=== PATIENT | female | born 1960 | race Caucasian/White ===

== ENCOUNTER 2019-03-28 12:25 | Outpatient (REF) | payer BC, SELFPAY ==
[2019-03-28 18:22] LABS: Abs Immature Grans 0.02 k/cumm (0.0-0.09); Absolute Basophil Count 0.04 k/cumm (0.0-0.2); Absolute Eosinophil Count 0.12 k/cumm (0.0-0.7); Absolute Monocyte Count 0.48 k/cumm (0.11-0.7); Absolute Neutrophil Count 4.39 k/cumm (1.2-6.7); Basophils % 0.6; Eosinophils % 1.7; HCT 48.3 % (36.0-46.0); HGB 16.5 g/dL (12.0-15.5); Immature Grans % 0.3; Lymphocytes % 28.4; Mean Corp. HGB Concentration 34.2 g/dL (32.0-36.0); Mean Corpuscular Hemoglobin 29.3 pg (27.0-33.0); Mean Corpuscular Volume 85.6 fL (80-95); Mean Platelet Volume 11.9 fL (8.0-11.0); Monocytes % 6.8; Neutrophils % 62.2; Platelet Count 197 x1000/uL (130-400); RBC 5.64 m/cumm (4.00-5.20); RBC Distribution Width 13.2 % (11.7-14.6); White Blood Cell Count 7.05 k/cumm (4.4-10.8)
[2019-03-28 19:18] LABS: ALT 24 U/L (14-59); AST 12 U/L (15-37); BUN 17 mg/dL (7-18); CREATININE 0.72 mg/dL (0.55-1.02); Calcium 9.2 mg/dL (8.5-10.1); Chloride 102 mmol/L (98-107); Glucose 268 mg/dL (74-106); PHOSPHORUS 3.1 mg/dL (2.6-4.7); Potassium 4.1 mmol/L (3.5-5.1); Sodium 140 mmol/L (136-145); TSH 1.04 uIU/mL (0.36-3.74)
[2019-03-30 04:43] LABS: Vitamin D 25 Total 9.3 ng/ml (30-100)
[2019-03-30 09:33] LABS: VALPROIC ACID 43.3 ug/mL (50-100)
== END 2019-03-28 12:45 ==
LOC: NCHCO 12:25
PROVIDERS: PCP Internal Medicine; Visit Provider Nurse Practitioner Psychiatric/Mental Health
DX: Z51.81 Encounter for therapeutic drug level monitoring (principal)
CPT/HCPCS: 80048; 80069; 82306; 80164; 84443; 84450; 84460; 85025

== ENCOUNTER 2019-05-10 18:53 | Emergency (ER) | payer MEDICAID, SELFPAY ==
[2019-05-10 19:08] VITALS: BP 165/78; PULSE 89; RESP 20; TEMP 36.6; O2SAT 97
--- NOTE | 2019-05-10 19:35 | ED.GENADUL_ITS ---
Discharge Plan Disposition Patient Disposition: HOME Condition: Stable Discharge Details Chief Complaint: DentalOral Clinical Impression: Acute gingivitis, Oral candidiasis Primary Care Provider: David Blue ED Provider: Latosha Messer Home Meds and New Rx's Prescriptions: New nystatin 100,000 unit/mL suspension 500,000 unit BC QID 10 Days Qty: 200 RF: 0 Continued divalproex 500 MG tablet extended release 24 hr 1,000 mg PO DAILY RF: 0 alprazolam [Xanax] 1 mg Tablet 2 mg PO HS RF: 0 valproic acid 250 mg Capsule 250 mg PO DAILY RF: 0 pantoprazole 40 mg Tablet,Delayed Release (Dr/Ec) 40 mg PO BID RF: 0 metformin 1,000 mg Tablet 1,000 mg PO DAILY RF: 0 Discharge Instructions Instructions: Gingivitis (ED), Oral Candidiasis (ED) Additional Instructions: Swish and spit 15 mLs of the chlorhexidine solution twice daily for approximately 30 seconds to help with gingivitis. Use the nystatin solution as directed. Call a local dentist to schedule a follow-up appointment for further evaluation and for possible dental extraction. Return to the emergency department if you develop any worsening or new concerning symptoms. Discharge Data Discharge Date/Time-TO BE ENTERED AT DEPARTURE: 05/10/19 20:40 Discharge Physician: Latosha Messer Medical Decision Making 58-year-old female presents with complaint of thrush on tongue and painful lesions on gums around teeth for the past 3 days. She is also complaining of a broken left lower tooth. Tooth on left lower jaw appears loose but there is no obvious evidence of fracture or abscess. There is a thin layer of white material on proximal tongue near base that may be consistent with thrush. She has findings of mild gingivitis. Airway intact. No peritonsillar mass, submandibular swelling, drooling or trismus. Do not see an indication for antibiotics for her tooth as she has no tooth pain she is just concerned that the tooth is the cause of her gingivitis. Discussed that this is likely due to plaque buildup around teeth and poor dental hygiene. We will send with a prescription for nystatin for the thrush and a bottle of chlorhexidine solution was given to go for home. She was given a list for dental follow-up. She was advised on the importance of proper dental hygiene. Usual and customary return precautions given prior to discharge Medical Records Medical records reviewed: Yes I reviewed the patient's medical records. HPI General Mode of arrival: ambulatory . Date/Time Provider Initiated Documentation: 05/10/19 19:24 . Limitations to Documentation: no limitations . Information obtained by: patient . History of Present Illness 58 year old F presents to the emergency department with the chief complaint of White coating on tongue, painful lesions on gums of teeth, broken tooth, Patient started experiencing this day(s) (2) and it has been constant. No relieving factors improve symptom(s), No exacerbating factors reported . Patient notes denies fever/chills, headaches and nausea/vomiting. Patient did receive the following treatments prior to arrival, none Related Data Home Medications Medication Instructions Recorded Confirmed divalproex 1,000 mg PO DAILY 07/25/14 05/10/19 alprazolam [Xanax] 2 mg PO HS 05/10/19 05/10/19 metformin 1,000 mg PO DAILY 05/10/19 05/10/19 nystatin 500,000 unit BC QID 10 Days #200 ml 05/10/19 pantoprazole 40 mg PO BID 05/10/19 05/10/19 valproic acid 250 mg PO DAILY 05/10/19 05/10/19 Previous Rx's Medication Instructions Recorded nystatin 500,000 unit BC QID 10 Days #200 ml 05/10/19 Allergies Allergy/AdvReac Type Severity Reaction Status Date / Time meperidine AdvReac gi upset Unverified 05/10/19 19:10 General Stated Complaint: DentalOral ASHANTI: 4 Review of Systems All systems reviewed & are unremarkable except as noted in HPI and below Constitutional Constitutional: Reports as per HPI, Denies chills and Denies fever(s) Eyes Eyes: Denies blurry vision ENT Ears, Nose, Mouth, and Throat: Denies dizziness, Reports mouth lesions, Reports mouth pain, Denies sore throat, Denies throat swelling and Reports other (tongue lesions) Cardiovascular Cardiovascular: Denies chest pain and Denies dyspnea Respiratory Respiratory: Denies cough and Denies dyspnea Gastrointestinal Gastrointestinal: Denies abdominal pain, Denies diarrhea and Denies vomiting Genitourinary Genitourinary: Denies hematuria and Denies dysuria Musculoskeletal Musculoskeletal: Denies back pain and Denies numbness Integumentary/Breasts Skin/Breast: Denies lesions and Denies rash Neurologic Neurologic: Denies dizziness, Denies focal weakness and Denies numbness Allergic/Immunologic Allergic/Immunologic: Denies throat swelling [facility] Medical History Anxiety (Chronic) Bipolar 1 disorder (Acute) Depression (Chronic) Diabetes (Chronic) History of pilonidal cyst (Chronic) Surgical History History of section (Chronic) History of hysterectomy (Chronic) History of tonsillectomy (Chronic) Social History Smoking/Tobacco Use Status: Former Tobacco Use Quit Date: 04/09/19 Alcohol Intake: never Drug use: Never Substance use type: does not use Do you feel safe at home: Yes Do you feel safe in your relationship?: Yes Exam Const General: cooperative, healthy appearing and no acute distress HENMT Head: normal to inspection Ears: hearing grossly normal bilaterally, external ears normal and TM's normal bilaterally General nose exam: external nose normal Throat: posterior oropharynx normal, tonsils normal, uvula midline and no peritonsillar masses Other: Minimal white coating noted near proximal and base of tongue. There is whitish/yellowish/greenish discoloration/plaque buildup noted in space between gums and teeth consistent likely with gingivitis. There is no obvious dental abscess noted. Left lower tooth appears loose but no obvious fracture noted. Eyes General: appearance normal, both eyes and all related structures Neck Neck: normal visual inspection, no lymphadenopathy, no meningeal signs, trachea midline, supple, no anterior neck swelling and No submandibular swelling Resp Effort & Inspection: normal respiratory effort and able to speak in complete sentences Cardio Rate: regular rate Skin General skin exam: no rashes or lesions noted Neuro General: alert, awake and oriented x3 Motor: muscle tone normal throughout Extrem General: normal to inspection and full ROM Psych Appearance: grossly normal Affect: normal affect Course Vital Signs Vital signs: Vital Signs Temperature 97.9 F 05/10/19 19:08 Pulse 89 05/10/19 19:08 Respiratory Rate 05/10/19 19:08 Blood Pressure 165/78 H 05/10/19 19:08 Pulse Oximetry 97 05/10/19 19:08 Temperature 97.9 F 05/10/19 19:08 Temperature Source Temporal Artery Scan 05/10/19 19:08 Pulse 89 05/10/19 19:08 Respiratory Rate 20 05/10/19 19:08 Respiratory Effort Non-Labored 05/10/19 19:13 Blood Pressure 165/78 H 05/10/19 19:08 Blood Pressure Position Sitting 05/10/19 19:08 Pulse Oximetry 97 05/10/19 19:08 Oxygen Delivery Method Room Air 05/10/19 19:08 Oxygen Flow Rate 0 05/10/19 19:08 Pain Level 10 05/10/19 19:13
== END 2019-05-10 20:40 | disposition home or self-care (01) ==
PROVIDERS: Emergency Provider Physician Assistant; PCP Internal Medicine
DX: B37.0 Candidal stomatitis (principal); K05.00 Acute gingivitis, plaque induced; E11.9 Type 2 diabetes mellitus without complications; Z79.84 Long term (current) use of oral hypoglycemic drugs
CPT/HCPCS: 99283

== ENCOUNTER 2019-05-20 09:12 | Outpatient (CLI) | payer MEDICAID, SELFPAY ==
[2019-05-20 09:52] LABS: VALPROIC ACID 54.5 ug/mL (50-100)
[2019-05-20 10:28] LABS: ALT 18 U/L (14-59); AST 9 U/L (15-37); Albumin 3.3 g/dL (3.4-5.0); Alkaline Phosphatase 90 U/L (46-116); Bilirubin, Total 0.3 mg/dL (0.2-1.0); CREATININE 0.87 mg/dL (0.55-1.02); Calcium 9.1 mg/dL (8.5-10.1); Chloride 101 mmol/L (98-107); Glucose 407 mg/dL (74-106); Potassium 4.2 mmol/L (3.5-5.1); Sodium 138 mmol/L (136-145); Total Protein 6.5 g/dL (6.4-8.2)
[2019-05-20 10:51] LABS: BUN 11 mg/dL (7-18)
== END 2019-05-20 09:32 ==
PROVIDERS: PCP Nurse Practitioner Family; Visit Provider Nurse Practitioner Psychiatric/Mental Health
DX: Z51.81 Encounter for therapeutic drug level monitoring (principal); Z79.899 Other long term (current) drug therapy
CPT/HCPCS: 36415; 80053; 80164

== ENCOUNTER 2019-05-29 18:42 | Outpatient (REF) | payer MEDICAID, SELFPAY ==
[2019-05-29 18:59] LABS: Lithium 0.88 mmol/L (0.60-1.20)
[2019-05-29 19:02] LABS: VALPROIC ACID 61.9 ug/mL (50-100)
[2019-05-29 19:03] LABS: Calculated LDL 169 mg/dL; Cholesterol 256 mg/dL (<200); HDL Cholesterol 38 mg/dL (40-60); Triglyceride 249 mg/dL (<150)
== END 2019-05-29 19:02 ==
LOC: NCHCN 18:42
PROVIDERS: PCP Nurse Practitioner Family; Visit Provider Nurse Practitioner Psychiatric/Mental Health
DX: E78.5 Hyperlipidemia, unspecified (principal); Z51.81 Encounter for therapeutic drug level monitoring; Z79.899 Other long term (current) drug therapy
CPT/HCPCS: 80061; 80164; 80178

== ENCOUNTER 2019-07-27 00:15 | Outpatient (CLI) | payer MEDICAID, SELFPAY ==
--- NOTE | 2019-07-27 | DI.MAMMO_ITS ---
EXAM: MAMMO SCREENING CLINICAL HISTORY: SCREENING, Z12.31 TECHNIQUE: Mammograms were interpreted according to the usual protocol including computer analysis w [employer] CAD system, tomosynthesis and C-view imaging. COMPARISON: September 2016 FINDINGS: The breasts are heterogeneously dense. No dominant mass or clumped microcalcification is identified in either breast. Multiple nonspecific stable areas of nodularity are noted in left breast, no inter joann change in appearance of the breasts in comparison previous examinations including September 2016. IMPRESSION: No specific evidence of malignancy at this time. Routine screening examinations are suggested at year ly intervals in this age group according to the ACS/ACR guidelines. Category 1, breast density catego ry C. BI-RADS Cat 1 - Negative Breast Density - Category C - Heterogeneously dense
== END 2019-07-27 00:35 ==
PROVIDERS: PCP Nurse Practitioner Family; Visit Provider Nurse Practitioner Family
DX: Z12.31 Encounter for screening mammogram for malignant neoplasm of breast (principal)
CPT/HCPCS: 77063; 77067

== ENCOUNTER 2019-09-05 13:30 | Outpatient (REF) | payer MEDICAID, SELFPAY ==
[2019-09-05 21:00] LABS: Iron 77 ug/dL (50-170); Total Iron Binding Capacity 333 ug/dL (250-450); Transferrin Sat 23 % (15-50)
[2019-09-05 21:02] LABS: VALPROIC ACID 77.7 ug/mL (50-100)
[2019-09-05 21:05] LABS: Hemoglobin A1C 11.7 % (3.8-5.6)
[2019-09-05 21:30] LABS: TSH (W/Ref FT4) 1.79 uIU/mL (0.36-3.74); Vitamin B12 532 pg/mL (193-986)
[2019-09-06 02:47] LABS: HCT 47.2 % (36.0-46.0); HGB 16.4 g/dL (12.0-15.5); Mean Corp. HGB Concentration 34.7 g/dL (32.0-36.0); Mean Corpuscular Hemoglobin 30.1 pg (27.0-33.0); Mean Corpuscular Volume 86.6 fL (80-95); Mean Platelet Volume 12.1 fL (8.0-11.0); Platelet Count 144 x1000/uL (130-400); RBC 5.45 m/cumm (4.00-5.20); RBC Distribution Width 12.9 % (11.7-14.6); White Blood Cell Count 6.35 k/cumm (4.4-10.8)
== END 2019-09-05 13:50 ==
LOC: NCHCN 13:30
PROVIDERS: PCP Nurse Practitioner Family; Visit Provider Nurse Practitioner Family
DX: F31.9 Bipolar disorder, unspecified (principal); Z65.8 Other specified problems related to psychosocial circumstances; Z51.81 Encounter for therapeutic drug level monitoring; L65.9 Nonscarring hair loss, unspecified; E11.65 Type 2 diabetes mellitus with hyperglycemia
CPT/HCPCS: 85027; 80164; 82607; 83036; 83540; 83550; 84443

== ENCOUNTER 2019-10-16 09:53 | Outpatient (RCR) | payer MEDICAID, SELFPAY ==
[2019-10-16 20:54] LABS: VALPROIC ACID 80.8 ug/mL (50-100)
== END 2019-11-07 23:59 | disposition home or self-care (01) ==
LOC: NCHCN 09:53
PROVIDERS: PCP Nurse Practitioner Family; Visit Provider Nurse Practitioner Family
DX: F31.9 Bipolar disorder, unspecified (principal); Z11.51 Encounter for screening for human papillomavirus (HPV)
CPT/HCPCS: 80164

== ENCOUNTER 2020-11-05 12:14 | Emergency (ER) | payer MEDICAID, SELFPAY ==
[2020-11-05] VITALS (13 sets, daily range): BP systolic 127–147; BP diastolic 59–99; PULSE 72–83; RESP 17–26; TEMP 36.5; O2SAT 94–98
--- NOTE | 2020-11-05 12:15 | DI.CT_ITS ---
Exam(s) CT BRAIN NECK CTA EXAM: CT BRAIN NECK CTA CLINICAL HISTORY: AMS, confused, dizzy. TECHNIQUE: Imaging Protocol: Axial CT angiography was performed with multi-slice acquisition and mu lti-planar and/or 3D reconstructions. CONTRAST MATERIAL: Intravenous: Omnipaque 350 Contrast volume:structured data in ml COMPARISON: CT ABD PELVIS WITH CONTRAST from 08/02/2009 FINDINGS: CT angiography of the cervical cranial region was performed according to the usual protocol with intr avenous infusion of 100 cc of Omnipaque 350.. Initial noncontrast scanning of the head is unremarkable except for minimal fluid in a few left masto id air cells consistent with mild serous mastoiditis.. Visualized lung apices are clear. Visualized portions of thoracic aorta and pulmonary arterial circul ation are unremarkable. There is no evidence of a cervical mass or adenopathy. The tracheal laryngeal structures appear intact. The common, internal, and external carotid arteries are within normal limits in the cervical region w ith no evidence of aneurysm, stenosis, or dissection. Minimal calcified plaque at the carotid bifurc ations bilaterally. The vertebral arteries are unremarkable in appearance in the cervical region with no evidence of aneu rysm, stenosis, or dissection. Intracranial portions of the internal carotid arteries appear normal with no evidence of aneurysm, st enosis, or dissection. Intracranial vertebral arteries and basilar artery appear normal with no evidence of aneurysm, stenos is or dissection. No aneurysm identified in the region of the [id number]. The left anterior cerebral artery fill s mainly across the anterior communicating artery from the right side. The anterior, middle, and pos terior cerebral arteries and major branches appear intact with no evidence of aneurysm, stenosis, or dissection. No enhancing brain lesion identified. IMPRESSION: Negative CT angiography of the cervical cranial region. RADIATION DOSE DELIVERED: 1,958.1mGy.cmTotal DLP 1,958.1mGy.cm Total DLP DATA REPOSITORY: All CT scans at this facility are submitted to the National Radiology Data Registry (NRDR) Dose Index Registry (DIR) with the [employer] (ACR). RADIATION OPTIMIZATION: All CT scans at this facility use at least one of these dose optimization te chniques: automated exposure control; mA and/or kV adjustment per patient size (includes targeted exa ms where dose is matched to clinical indication); or iterative reconstruction.
--- NOTE | 2020-11-05 12:15 | RT.EKG_ITS ---
APPROVED REPORT Exam: Resting ECG Reason for Exam: ams Patient Location: E HR:77 bpm ECG Measurements Heart Rate 77 AXIS HI 147 P 49 QRSd 81 QRS 74 QT 377 T 54 QTc 427 Conclusion Sinus rhythm...normal P axis, V-rate 60- 99 Low voltage, precordial leads...precordial leads <1.0mV Physician: no stemi
--- NOTE | 2020-11-05 12:19 | ED.GENADUL_ITS ---
Discharge Plan Disposition Patient Disposition: HOME Condition: Good Discharge Details Clinical Impression: Confusion Primary Care Provider: Ana Gillespie ED Provider: Ismael Eason Home Meds and New Rx's Prescriptions: Continued divalproex 500 MG tablet extended release 24 hr 1,000 mg PO DAILY RF: 0 alprazolam [Xanax] 1 mg Tablet 2 mg PO HS RF: 0 valproic acid 250 mg Capsule 250 mg PO DAILY RF: 0 pantoprazole 40 mg Tablet,Delayed Release (Dr/Ec) 40 mg PO BID RF: 0 metformin 1,000 mg Tablet 1,000 mg PO DAILY RF: 0 Discharge Instructions Instructions: Altered Mental Status (ED) Additional Instructions: At this time your CAT scan of your head shows no stroke or bleed or tumor. Your laboratory work-up is reassuring. Please drink plenty of fluids at home. If any of your symptoms return please return immediately for reassessment and we can perform the additional studies that we discussed together. If you notice any worsening of your symptoms, or any new symptoms such as vomiting, diarrhea, fever, chills, shortness of breath, chest pain, numbness, weakness, or fainting , please return immediately to the emergency department for reevaluation. Please follow up with your primary care provider as soon as possible for reassessment and reevaluation. As always, it was a pleasure participating in your medical care today. Referrals: Ana Gillespie [Primary Care Provider] - Medical Decision Making 60-year-old female with a past medical history of type 2 diabetes on Metformin and insulin, mood disorder on Depakote, Xanax, who presents today for altered mental status. Patient presents via EMS. Patient states that starting the last evening she started to feel a little off, being slightly groggy, having a foggy mind, and feeling somewhat imbalanced. While driving today her noticed that she was driving erratically, not thinking straight. EMS was called the patient was brought to the ER for further assessment. Blood glucose was in the high 200s per EMS. Initial neuro exam was stable, screening EKG unremarkable. Currently the patient denies any complaints of headache, drug or alcohol use, accidentally taking any extra medications, chest pain, shortness of breath, headache, vision changes, nausea, vomiting or diarrhea. No other complaints at this time. No other modifying factors. Physical exam demonstrates no focal neurologic deficits however the patient does have a challenge with her gait, and she appears notably unsteady. No vertical or horizontal or rotatory nystagmus. Concern is for potential dehydration, posterior cerebellar stroke, infection or DKA. Will monitor closely reassess. 12:39 PM Patient significant other is now at bedside, patient's significant other states that from his perspective he noticed that she was driving erratically today, and her mental status just was not her norm. However he states that her symptoms started about 1-1/2 hours prior from right now. No other additional historical components. 1:56 PM Laboratory work-up is returned, notably unremarkable. Very reassuring. No significant abnormalities to speak of. Salicylates and acetaminophen negative. Alcohol level negative. CT scan/CTA and chest x-ray have returned and are negative per radiology. On reassessment the patient and her state that she is at her baseline, she feels well, and would like to go home. Repeat neurologic exam demonstrates normal neurologic assessment, no altered mental status, normal neurologic exam. Patient has received the fluids and is feeling much better. I did discuss options of prolonged observation and potential MRI imaging on an inpatient basis,, and at this time family states that they would like to go home, and did not want to be admitted overnight or have any MRIs at this time. We discussed the risk and benefits of this with the patient family understand. They do assure me that they will return if the patient has any return of her symptoms. Suspect mild dehydration may have been a component of her symptoms. Symptoms appear inconsistent with stroke or TIA, meningitis, or acute intercranial etiology requiring emergent management at this time. I have extensively reviewed the treatment plan and discharge instructions with the patient and their family. I have addressed all patient concerns at this time. The patient and family was made aware of what symptoms to monitor for that would warrant a return to the emergency department. Discussed the plan with the patient and family, they demonstrate verbal understanding and agreement with our assessment and plan at this time. The documentation in this chart was dictated using [employer] dictation software. Please excuse any dictation errors. FINDINGS: The heart is not enlarged. The lungs are clear and well expanded. No pleural effusion seen. Mediastinal contours appear intact. IMPRESSION: Normal chest. FINDINGS: CT angiography of the cervical cranial region was performed according to the usual protocol with intravenous infusion of 100 cc of Omnipaque 350.. Initial noncontrast scanning of the head is unremarkable except for minimal fluid in a few left mastoid air cells consistent with mild serous mastoiditis.. Visualized lung apices are clear. Visualized portions of thoracic aorta and pulmonary arterial circulation are unremarkable. There is no evidence of a cervical mass or adenopathy. The tracheal laryngeal structures appear intact. The common, internal, and external carotid arteries are within normal limits in the cervical region with no evidence of aneurysm, stenosis, or dissection. Minimal calcified plaque at the carotid bifurcations bilaterally. The vertebral arteries are unremarkable in appearance in the cervical region with no evidence of aneurysm, stenosis, or dissection. Intracranial portions of the internal carotid arteries appear normal with no evidence of aneurysm, stenosis, or dissection. Intracranial vertebral arteries and basilar artery appear normal with no evidence of aneurysm, stenosis or dissection. No aneurysm identified in the region of the [id number]. The left anterior cerebral artery fills mainly across the anterior communicating artery from the right side. The anterior, middle, and posterior cerebral arteries and major branches appear intact with no evidence of aneurysm, stenosis, or dissection. No enhancing brain lesion identified. IMPRESSION: Negative CT angiography of the cervical cranial region. HPI General Date/Time Provider Initiated Documentation: 11/05/20 12:16 . HPI Narrative: 6-year-old female with a past medical history of type 2 diabetes on M etformin and insulin, mood disorder on Depakote, Xanax, who presents today for altered mental status. Patient presents via EMS. Patient states that starting the last evening she started to feel a little off, being slightly groggy, having a foggy mind, and feeling somewhat imbalanced. While driving today her noticed that she was driving erratically, not thinking straight. EMS was called the patient was brought to the ER for further assessment. Blood glucose was in the high 200s per EMS. Initial neuro exam was stable, screening EKG unremarkable. Currently the patient denies any complaints of headache, drug or alcohol use, accidentally taking any extra medications, chest pain, shortness of breath, headache, vision changes, nausea, vomiting or diarrhea. No other complaints at this time. No other modifying factors. Related Data Home Medications Medication Instructions Recorded Confirmed divalproex 1,000 mg PO DAILY 07/25/14 05/10/19 alprazolam [Xanax] 2 mg PO HS 05/10/19 05/10/19 metformin 1,000 mg PO DAILY 05/10/19 05/10/19 pantoprazole 40 mg PO BID 05/10/19 05/10/19 valproic acid 250 mg PO DAILY 05/10/19 05/10/19 Allergies Allergy/AdvReac Type Severity Reaction Status Date / Time meperidine AdvReac gi upset Unverified 05/10/19 19:10 General ASHANTI: 4 Review of Systems All systems reviewed & are unremarkable except as noted in HPI and below PFSH Medical History (Updated 11/05/20 @ 14:00 by Ismael Eason DO) Anxiety Bipolar 1 disorder Depression Diabetes History of pilonidal cyst Surgical History History of section History of hysterectomy History of tonsillectomy Social History Smoking/Tobacco Use Status: Former Tobacco Use Quit Date: 04/09/19 Smoking risk assessment performed?: Yes Alcohol Intake: current Alcohol Intake frequency: a few times a month Drug use: Never Substance use type: does not use Do you feel safe at home: Yes Do you feel safe in your relationship?: Yes Exam Narrative Exam Narrative: 1.Const: Well-nourished, Well-developed, appearing stated age 2.Eyes: PERRL, no conjunctival injection, and symmetrical lids. 3.ENT: Atraumatic external nose and ears. Moist MM. Neck: Symmetric, trachea midline, No thyromegaly. Patient demonstrates good movement of cervical neck. There is no nuchal rigidity, no nuchal tenderness. Patient is able to flex the neck without any difficulty or significant pain. Negative Kernig's and Brudzinski sign. 4.CVS: +S1/S2, No murmurs or gallops. Peripheral pulses 2+ and equal in all extremities. Brisk capillary refill in all extremities. 5.RESP: Unlabored respiratory effort. Clear to auscultation bilaterally. No wheezes rales or rhonchi 6.GI: Soft, Nontender/Nondistended, No hepatosplenomegaly. No guarding or rebound. 7.MSK: Normocephalic/Atraumatic, Extremities w/o deformity or ttp No cyanosis or clubbing, Normal movement of all extremities 8.Skin: Warm, Dry. No rashes or lesions. 9.Neuro: woodworking machine feeder II-XII grossly intact. Sensation grossly intact, no focal neurologic deficits. All 6 cardinal planes of vision are fully intact. No evidence of rotatory or vertical nystagmus. The patient demonstrated a normal [id number]-epytbj, good dexterity. There was no evidence of dysdiadochokinesia. Patient did have difficulty with ambulation and was notably unsteady.. Sensation was intact bilaterally as well as muscle strength bilaterally for all extremities. Patient was able to verbalize butter cup with no slurring, or miss pronunciation. CN 2-12 tested and intact, patient is able to hold bilateral arms up for 5 seconds and there is no pronator drift, patient also holds legs up for 10 seconds bilaterally without any drop, sensation intact to light touch in hands and feet bilaterally normal [id number], rapid alternating movements, fine finger movements. Visual howard intact peripherally. Normal speech pattern and verbal understanding. 10.Psych: (AAO) x3. However the patient does appear to have slight slowdown in the rate of her speech, does appear a little altered. NIH stroke scale 0
[2020-11-05] MEDS: Normal Saline 500 ML IV (12:31)
[2020-11-05 12:32] LABS: BE (Venous) 3 mmol/L (-2-3); HCO3 (Venous) 27 mmol/L (23-28); O2 Sat (Venous) 90 %; TCO2 (Venous) 24 mmol/L (24-29); pCO2 (Venous) 41 mmHg (41-51); pH (Venous) 7.43 (7.31-7.41); pO2 (Venous) 55 mmHg
[2020-11-05 12:35] LABS: Abs Immature Grans 0.05 10^3/uL (0.0-0.06); Absolute Basophil Count 0.05 10^3/uL (0.0-0.2); Absolute Eosinophil Count 0.07 10^3/uL (0.0-0.7); Absolute Lymphocyte Count 1.61 10^3/uL (1.2-3.4); Absolute Monocyte Count 0.45 10^3/uL (0.1-0.8); Absolute Neutrophil Count 3.01 10^3/uL (1.2-6.7); Eosinophils % 1.3; HCT 42.6 % (36.0-46.0); HGB 14.2 g/dL (11.2-15.7); Lymphocytes % 30.7; MCH 29.3 pg (27.0-33.0); MCHC 33.3 % (32.0-36.0); Monocytes % 8.6; Neutrophils % 57.4; Nucleated RBC 0 %; Platelet Count 139 10^3/uL (130-400); RBC 4.84 10^6/uL (3.93-5.22); RDW 12.4 % (11.7-14.6); RDW-SD 39.8 fL; WBC 5.24 10^3/uL (4.4-10.8)
[2020-11-05 12:51] LABS: Ammonia < 10 umol/L (11-32)
[2020-11-05 12:56] LABS: ALT 13 U/L (14-59); AST 9 U/L (15-37); Albumin 2.9 g/dL (3.4-5.0); Alkaline Phosphatase 82 U/L (46-116); Anion Gap 8.7 mmol/L (3-11); BUN 16 mg/dL (7-18); Bilirubin, Total 0.3 mg/dL (0.2-1.0); CO2 25.3 mmol/L (21.0-32.0); CREATININE 0.7 mg/dL (0.55-1.02); Calcium 8.3 mg/dL (8.5-10.1); Chloride 104 mmol/L (98-107); Glucose 323 mg/dL (74-106); Potassium 4.1 mmol/L (3.5-5.1); Sodium 138 mmol/L (136-145); Total Protein 6.1 g/dL (6.4-8.2)
[2020-11-05 12:57] LABS: ETHANOL BLOOD < 3.0 mg/dL (<3); Troponin I < 0.05 ng/mL (<0.06)
[2020-11-05 13:03] LABS: Salicylate 2.8 mg/dL (<2.8)
[2020-11-05 13:04] LABS: VALPROIC ACID 67.4 ug/mL (50-100)
[2020-11-05 13:06] LABS: Acetaminophen < 2 ug/mL (10-30)
[2020-11-05] MEDS: Normal Saline - Diluent 50 ML VIAL IV (13:20)
[2020-11-05] MEDS: Omnipaque 350 MG/ML 100 ML BTL IJ (13:25)
[2020-11-05] MEDS: Normal Saline Flush 10 ML SYR IVP (13:25)
--- NOTE | 2020-11-05 13:40 | DI.RAD_ITS ---
Exam(s) XR CHEST 2V PA LATERAL EXAM: XR CHEST 2V PA LATERAL CLINICAL HISTORY: sob, AMs TECHNIQUE: 2D digital imaging was performed. COMPARISON: CR CHEST 2 VIEWS PA,LAT from 09/07/2017 FINDINGS: The heart is not enlarged. The lungs are clear and well expanded. No pleural effusion seen. Mediastin al contours appear intact. IMPRESSION: Normal chest. RADIATION DOSE DELIVERED: Total DLP
[2020-11-05 14:02] LABS: Bilirubin Negative (Negative); Blood Negative (Negative); Clarity Clear (Clear); Glucose >=1000 mg/dL (Negative); Ketones 15 mg/dL (Negative); Leukocyte Esterase Negative (Negative); Nitrite Negative (Negative); Specific Gravity 1.015 (1.005-1.025); Urobilinogen 0.2 EU/dL (Up TO 0.2)
[2020-11-05 14:10] LABS: *AMPHETAMINES SCREEN URINE Negative (Negative); *BARBITURATES SCREEN URINE Negative (Negative); *BENZODIAZEPINES SCREEN URINE Negative (Negative); Cannabinoids THC Negative (Negative); Cocaine Screen,Urine Negative (Negative); METHADONE URINE SCREEN Negative (Negative); OPIATES URINE SCREEN Negative (Negative); Tricyclic Antidepressants Negative (Negative)
== END 2020-11-05 14:21 | disposition home or self-care (01) ==
LOC: ER 14:23
PROVIDERS: Emergency Provider Student in an Organized Health Care Education/Training Program; PCP Nurse Practitioner Family
DX: R41.0 Disorientation, unspecified (principal); R26.81 Unsteadiness on feet
CPT/HCPCS: 36415; 36416; 70496; 70498; 80053; 80307; 82805; 82962; 93005; 96360; 99285; 71046; 80164; 80320; 80329; 81003; 82140; 84443; 84484; 85025; 93010; J3490

== ENCOUNTER 2020-11-28 14:59 | Outpatient (REF) | payer MEDICAID, SELFPAY | END 2020-11-28 15:00 | disposition home or self-care (01) | LOC: NCHCN 14:59 | PROVIDERS: PCP Nurse Practitioner Family; Visit Provider Nurse Practitioner Family | DX: B37.9 Candidiasis, unspecified (principal) | CPT/HCPCS: 87480; 87510; 87660 ==

== ENCOUNTER 2021-03-03 10:33 | Inpatient (IN) | payer MEDICAID, SELFPAY ==
[2021-03-03] VITALS (111 sets, daily range): BP systolic 48–145; BP diastolic 13–125; PULSE 67–197; RESP 13–36; TEMP 34.6–36.6; O2SAT 87–98
--- NOTE | 2021-03-03 11:00 | RT.EKG_ITS ---
APPROVED REPORT Exam: Resting ECG Reason for Exam: [facility] Patient Location: E HR:99 bpm ECG Measurements Heart Rate [address] 148 P 75 QRSd 85 QRS 86 QT 361 T 223 QTc 465 Conclusion Sinus rhythm...normal P axis, V-rate 60- 99 Probable left atrial enlargement...P >50mS, <-0.10mV V1 Nonspecific T abnormalities, lateral leads...T <-0.10mV, I aVL V5 V6 I have reviewed and interpreted ECG and agree with software generated interpretation.
--- NOTE | 2021-03-03 11:00 | DI.CT_ITS ---
Exam(s) CT HEAD WO EXAM: CT HEAD WO CLINICAL HISTORY: confusion. TECHNIQUE: Imaging Protocol: Axial computed tomography images with coronal and sagittal reformatted images were created and reviewed COMPARISON: CT CT BRAIN NECK CTA from 11/05/2020 FINDINGS: There are no skull fractures nor fluid in the visualized paranasal sinuses. Hyperostosis frontalis interna incidentally noted. There is no evidence of intracranial hemorrhage, mass effect, or shift of midline structures. There are no extra-axial fluid collections. The ventricles are not enlarged or shifted and there is no blo od within the ventricular system nor within the basal cisterns. IMPRESSION: No acute intracranial findings on this noninfused CT scan of the brain. RADIATION DOSE DELIVERED: 805.59mGy.cm Total DLP DATA REPOSITORY: All CT scans at this facility are submitted to the National Radiology Data Registry (NRDR) Dose Index Registry (DIR) with the [employer] (ACR). RADIATION OPTIMIZATION: All CT scans at this facility use at least one of these dose optimization te chniques: automated exposure control; mA and/or kV adjustment per patient size (includes targeted exa ms where dose is matched to clinical indication); or iterative reconstruction.
[2021-03-03 11:14] LABS: Source Nasal/Nares
[2021-03-03 11:15] LABS: Abs Immature Grans 0.08 10^3/uL (0.0-0.06); Absolute Basophil Count 0.03 10^3/uL (0.0-0.2); Absolute Lymphocyte Count 0.45 10^3/uL (1.2-3.4); Absolute Monocyte Count 1.29 10^3/uL (0.1-0.8); Absolute Neutrophil Count 13.27 10^3/uL (1.2-6.7); Basophils % 0.2; Eosinophils % 0.1; HGB 15.9 g/dL (11.2-15.7); Immature Grans % 0.5; MCH 29.3 pg (27.0-33.0); MCHC 29.4 % (32.0-36.0); MCV 99.6 fL (80-95); MPV 12.6 fL (8.0-11.0); Monocytes % 8.5; Neutrophils % 87.7; Nucleated RBC 0 %; Platelet Count 226 10^3/uL (130-400); RBC 5.42 10^6/uL (3.93-5.22); RDW-SD 48.1 fL; WBC 15.13 10^3/uL (4.4-10.8)
[2021-03-03 11:16] LABS: Lactate 6.3 mmol/L (0.6-1.4)
[2021-03-03 11:24] LABS: Absolute Eosinophil Count 0.02 10^3/uL (0.0-0.7)
[2021-03-03 11:25] LABS: Magnesium 2.8 mg/dL (1.8-2.4)
[2021-03-03 11:27] LABS: Bilirubin Negative (Negative); Blood Negative (Negative); Clarity Clear (Clear); Glucose 500 mg/dL (Negative); Ketones Negative (Negative); Leukocyte Esterase Negative (Negative); Nitrite Negative (Negative); Specific Gravity <= 1.005 (1.005-1.025); Urobilinogen 0.2 EU/dL (Up TO 0.2)
[2021-03-03 11:53] LABS: BE (Venous) -1 mmol/L (-2-3); HCO3 (Venous) 25 mmol/L (23-28); O2 Sat (Venous) 82 %; TCO2 (Venous) 22 mmol/L (24-29); pCO2 (Venous) 48 mmHg (41-51); pH (Venous) 7.32 (7.31-7.41); pO2 (Venous) 51 mmHg
[2021-03-03] MEDS: cefTRIAXone 2 GM/50 ML BAG IVPB (12:00)
[2021-03-03] MEDS: Normal Saline 1,000 ML 1000 ML IV ×2 (12:00→13:06)
--- NOTE | 2021-03-03 12:12 | ED.GENADUL_ITS ---
Discharge Plan Disposition Patient Disposition: [facility] INPATIENT Condition: Critical Discharge Details Clinical Impression: Lactic acidosis, Sepsis, Gastroparesis, Toxic metabolic encephalopathy, Hyperosmolar nonketotic coma in diabetes, Dehydration with hyponatremia, Cholelithiasis Admit Date/Time: 03/03/21 15:10 Admit Provider: Erin Damon Attending Provider: Erin Damon Primary Care Provider: Ana Gillespie ED Provider: Estephania Mireles Discharge Data Discharge Date/Time-TO BE ENTERED AT DEPARTURE: 03/03/21 17:34 Medical Decision Making Patient is quite ill, apparently she has had similar presentation in the past and was given fluid per and discharged home He denies any alcohol consumption He denies any illicit drug use She has been using her insulin as prescribed She not been drinking or eating much. Apparently she started with some epigastric pain and some nausea initially several episodes of vomiting. No vomiting today. No diarrhea reportedly. No blood in vomitus or stool. No reported history of cirrhosis Initially was requesting to bring patient home, however given her significant hyperglycemia, 1600, leukocytosis, lactic acidosis, and MARILIN, patient will need admission to the hospital She has pseudohyponatremia, 114, corrected this is 140 She was given 2 L of normal saline initially, will switch to potassium with half-normal saline infusion rate 150 Received infusion of insulin at 0.1 units/kg Discussed CT findings of cholelithiasis, fat-containing hernia, and dilated esophagus and stomach with Dr. Purcell, Dr. Purcell feels as though this is likely secondary to gastroparesis and not bowel obstruction and recommends NG tube There is no evidence of significant LFT abnormality or lipase I do not think patient has acute cholecystitis clinically She has much more alert and oriented x2 at reassessment She is agreeable to stay in the hospital She is maintaining her airway Received 1 g of ceftriaxone to cover patient empirically for sepsis CT head does not show acute abnormality Case discussed with Dr. Damon who has accepted patient I suspect patient is experiencing HHS and this is likely why she is confused She was given a dose of ceftriaxone for the lactate level, I do not see a clear evidence of infection, urinalysis fine, temperature does not show abnormality, patient is not hypoxic Her vitals have improved after hydration She has full CODE STATUS She is Covid negative Medical Records Medical records reviewed: Yes I reviewed the patient's medical records. HPI General Mode of arrival: ambulatory . Date/Time Provider Initiated Documentation: 03/03/21 10:49 . Limitations to Documentation: no limitations . Information obtained by: patient . HPI Narrative: This 60-year-old female with history of bipolar, diabetes presents with report of intermittent vomiting in the interim appendectomy pain. Patient states she has had similar episodes in the past and she received a liter of hydration and improved. He returns today secondary to increasing confusion. states that the confusion has been waxing and waning. There have been no falls, fever or chills. He denies any new medications or history of alcohol consumption. Related Data Home Medications Medication Instructions Recorded Confirmed divalproex 250 mg PO DAILY 07/25/14 03/04/21 alprazolam [Xanax] 2 mg PO HS 05/10/19 03/03/21 pantoprazole 80 mg PO DAILY 05/10/19 03/04/21 valproic acid 250 mg PO DAILY 05/10/19 03/03/21 divalproex PO 03/04/21 fluconazole 150 mg 03/04/21 glyburide 10 mg PO BID 03/04/21 03/04/21 insulin NPH isoph U-100 human 40 unit SUBCUT HS 03/04/21 03/04/21 [Humulin N NPH Insulin KwikPen] lisinopril 5 mg PO DAILY 03/04/21 03/04/21 olanzapine 10 mg PO HS 03/04/21 03/04/21 sertraline 50 mg PO DAILY 03/04/21 03/04/21 varenicline [Chantix Starting dose pk 03/04/21 Month Box] Allergies Allergy/AdvReac Type Severity Reaction Status Date / Time meperidine AdvReac gi upset Unverified 03/03/21 11:20 General Stated Complaint: AMS/LOC ASHANTI: 2 Review of Systems All systems reviewed & are unremarkable except as noted in HPI and below PFSH Medical History (Updated 03/04/21 @ 20:23 by ROSLYN Stafford) Alcohol abuse Anxiety Bipolar 1 disorder Depression Diabetes History of pilonidal cyst Surgical History History of section History of hysterectomy History of tonsillectomy Social History (Reviewed 11/05/20 @ 12:23 by PARKER Stephens Smoking/Tobacco Use Status: Former Tobacco Use Quit Date: 04/09/19 Smoking risk assessment performed?: Yes Alcohol Intake: current Alcohol Intake frequency: a few times a month Drug use: Never Substance use type: does not use Do you feel safe at home: Yes Do you feel safe in your relationship?: Yes Exam Const General: disheveled and ill appearing Orientation: alert and oriented to person HENDC Head: normal to inspection Other: Uvula midline, no hemotympanum, moist mucous membranes Eyes Pupils: PERRL Resp Effort & Inspection: normal respiratory effort Auscultation: clear to auscultation bilaterally Cardio Rate: regular rate Rhythm: regular rhythm GI Other: Mild lower abdominal tenderness, no rebound or guarding Skin General skin exam: no rashes or lesions noted Neuro General: patient alert Cranial Nerves: CN's II-XI intact bilaterally Other: Oriented x2, able to follow basic commands Extrem Other: No peripheral edema, distal pulses intact Psych Appearance: disheveled Insight: poor Judgment: poor Other: Emotionally labile Course Vital Signs Vital signs: Vital Signs Temperature 34.6 C L 03/03/21 10:47 Pulse 111 H 03/03/21 10:47 Respiratory Rate 32 H 03/03/21 10:47 Blood Pressure 89/67 L 03/03/21 10:47 Pulse Oximetry 92 03/03/21 10:47 Temperature 34.6 C L 03/03/21 10:47 Temperature Source Temporal Artery Scan 03/03/21 10:47 Pulse 97 H 03/03/21 12:06 Respiratory Rate 32 H 03/03/21 12:07 Respiratory Effort 03/03/21 12:07 Respiratory Depth Normal 03/03/21 12:07 Respiratory Pattern Tachypnea 03/03/21 12:07 Blood Pressure 112/67 03/03/21 12:06 Blood Pressure Position Supine 03/03/21 10:47 Pulse Oximetry 97 03/03/21 12:06 Oxygen Delivery Method Room Air 03/03/21 10:47 Oxygen Flow Rate 0 03/03/21 10:47 Pain Level 0 03/03/21 10:47 Lab/Test Results Lab/Test Results: 03/03/21 11:00 Blood Blood Culture - Pending 03/03/21 10:50 Blood Blood Culture - Pending Laboratory Tests Range/Units 10/03/03/21 03/03/21 11:00 11:00 11:00 WBC (4.4-10.8) 10^3/uL 15.13 H RBC (3.93-5.22) 10^6/uL 5.42 H Hgb (11.2-15.7) g/dL 15.9 H Hct (36.0-46.0) % 54.0 H MCV (80-95) fL 99.6 H MCH (27.0-33.0) pg 29.3 MCHC (32.0-36.0) % 29.4 L RDW (11.7-14.6) % 13.0 Plt Count (130-400) 10^3/uL 226 MPV (8.0-11.0) fL 12.6 H Immature Gran % 0.5 Neutrophils % 87.7 Lymphocytes % 3.0 Monocytes % 8.5 Eosinophils % 0.1 Basophils % 0.2 Nucleated RBC % % 0 Absolute Neutrophils (1.2-6.7) 10^3/uL 13.27 H Absolute Lymphocytes (1.2-3.4) 10^3/uL 0.45 L Absolute Monocytes (0.1-0.8) 10^3/uL 1.29 H Absolute Eosinophils (0.0-0.7) 10^3/uL 0.02 Absolute Basophils (0.0-0.2) 10^3/uL 0.03 VBG pH (7.31-7.41) VBG pCO2 (41-51) mmHg VBG pO2 mmHg VBG HCO3 (23-28) mmol/L VBG Total CO2 (24-29) mmol/L VBG O2 Saturation % VBG Base Excess (-2-3) mmol/L VBG Lactate (0.6-1.4) mmol/L 6.3 H* Sodium Potassium Chloride Carbon Dioxide Anion Gap BUN Creatinine Estimated GFR/1.73 m2 Glucose Calcium Phosphorus Magnesium (1.8-2.4) mg/dL Total Bilirubin AST ALT Alkaline Phosphatase Troponin I Total Protein Albumin Lipase Urine Color (Yellow) Urine Clarity (Clear) Urine pH (5-8) Ur Specific [place] (1.005-1.025) Urine Protein (Negative) mg/dL Urine Ketones (Negative) mg/dL Urine Blood (Negative) Urine Nitrite (Negative) Urine Bilirubin (Negative) Urine Urobilinogen (Up TO 0.2) EU/dL Ur Leukocyte Esterase (Negative) Urine Glucose (Negative) mg/dL Valproic Acid Ethyl Alcohol COVID-19 Source Nasal/Nares Range/Units 03/03/21 03/03/21 03/03/21 11:00 11:00 11:50 WBC (4.4-10.8) 10^3/uL RBC (3.93-5.22) 10^6/uL Hgb (11.2-15.7) g/dL Hct (36.0-46.0) % MCV (80-95) fL MCH (27.0-33.0) pg MCHC (32.0-36.0) % RDW (11.7-14.6) % Plt Count (130-400) 10^3/uL MPV (8.0-11.0) fL Immature Gran % Neutrophils % Lymphocytes % Monocytes % Eosinophils % Basophils % Nucleated RBC % % Absolute Neutrophils (1.2-6.7) 10^3/uL Absolute Lymphocytes (1.2-3.4) 10^3/uL Absolute Monocytes (0.1-0.8) 10^3/uL Absolute Eosinophils (0.0-0.7) 10^3/uL Absolute Basophils (0.0-0.2) 10^3/uL VBG pH (7.31-7.41) VBG pCO2 (41-51) mmHg VBG pO2 mmHg VBG HCO3 (23-28) mmol/L VBG Total CO2 (24-29) mmol/L VBG O2 Saturation % VBG Base Excess (-2-3) mmol/L VBG Lactate (0.6-1.4) mmol/L Sodium Cancelled Potassium Cancelled Chloride Cancelled Carbon Dioxide Cancelled Anion Gap Cancelled BUN Cancelled Creatinine Cancelled Estimated GFR/1.73 m2 Cancelled Glucose Cancelled Calcium Cancelled Phosphorus Magnesium (1.8-2.4) mg/dL 2.8 H Total Bilirubin Cancelled AST Cancelled ALT Cancelled Alkaline Phosphatase Cancelled Troponin I Total Protein Cancelled Albumin Cancelled Lipase Urine Color (Yellow) Yellow Urine Clarity (Clear) Clear Urine pH (5-8) 6.0 Ur Specific [place] (1.005-1.025) <= 1.005 Urine Protein (Negative) mg/dL Negative Urine Ketones (Negative) mg/dL Negative Urine Blood (Negative) Negative Urine Nitrite (Negative) Negative Urine Bilirubin (Negative) Negative Urine Urobilinogen (Up TO 0.2) EU/dL 0.2 Ur Leukocyte Esterase (Negative) Negative Urine Glucose (Negative) mg/dL 500 H Valproic Acid Ethyl Alcohol COVID-19 Source Range/Units 03/03/21 03/03/21 03/03/21 11:50 11:50 11:50 WBC (4.4-10.8) 10^3/uL RBC (3.93-5.22) 10^6/uL Hgb (11.2-15.7) g/dL Hct (36.0-46.0) % MCV (80-95) fL MCH (27.0-33.0) pg MCHC (32.0-36.0) % RDW (11.7-14.6) % Plt Count (130-400) 10^3/uL MPV (8.0-11.0) fL Immature Gran % Neutrophils % Lymphocytes % Monocytes % Eosinophils % Basophils % Nucleated RBC % % Absolute Neutrophils (1.2-6.7) 10^3/uL Absolute Lymphocytes (1.2-3.4) 10^3/uL Absolute Monocytes (0.1-0.8) 10^3/uL Absolute Eosinophils (0.0-0.7) 10^3/uL Absolute Basophils (0.0-0.2) 10^3/uL VBG pH (7.31-7.41) 7.32 VBG pCO2 (41-51) mmHg 48 VBG pO2 mmHg 51 VBG HCO3 (23-28) mmol/L 25 VBG Total CO2 (24-29) mmol/L 22 L VBG O2 Saturation % 82 VBG Base Excess (-2-3) mmol/L -1 VBG Lactate (0.6-1.4) mmol/L Sodium Potassium Chloride Carbon Dioxide Anion Gap BUN Creatinine Estimated GFR/1.73 m2 Glucose Calcium Phosphorus Magnesium (1.8-2.4) mg/dL Total Bilirubin AST ALT Alkaline Phosphatase Troponin I Cancelled Total Protein Albumin Lipase Urine Color (Yellow) Urine Clarity (Clear) Urine pH (5-8) Ur Specific [place] (1.005-1.025) Urine Protein (Negative) mg/dL Urine Ketones (Negative) mg/dL Urine Blood (Negative) Urine Nitrite (Negative) Urine Bilirubin (Negative) Urine Urobilinogen (Up TO 0.2) EU/dL Ur Leukocyte Esterase (Negative) Urine Glucose (Negative) mg/dL Valproic Acid Ethyl Alcohol Cancelled COVID-19 Source Range/Units 03/03/21 03/03/21 11:50 11:50 WBC (4.4-10.8) 10^3/uL RBC (3.93-5.22) 10^6/uL Hgb (11.2-15.7) g/dL Hct (36.0-46.0) % MCV (80-95) fL MCH (27.0-33.0) pg MCHC (32.0-36.0) % RDW (11.7-14.6) % Plt Count (130-400) 10^3/uL MPV (8.0-11.0) fL Immature Gran % Neutrophils % Lymphocytes % Monocytes % Eosinophils % Basophils % Nucleated RBC % % Absolute Neutrophils (1.2-6.7) 10^3/uL Absolute Lymphocytes (1.2-3.4) 10^3/uL Absolute Monocytes (0.1-0.8) 10^3/uL Absolute Eosinophils (0.0-0.7) 10^3/uL Absolute Basophils (0.0-0.2) 10^3/uL VBG pH (7.31-7.41) VBG pCO2 (41-51) mmHg VBG pO2 mmHg VBG HCO3 (23-28) mmol/L VBG Total CO2 (24-29) mmol/L VBG O2 Saturation % VBG Base Excess (-2-3) mmol/L VBG Lactate (0.6-1.4) mmol/L Sodium Potassium Chloride Carbon Dioxide Anion Gap BUN Creatinine Estimated GFR/1.73 m2 Glucose Calcium Phosphorus Cancelled Magnesium (1.8-2.4) mg/dL Total Bilirubin AST ALT Alkaline Phosphatase Troponin I Total Protein Albumin Lipase Cancelled Urine Color (Yellow) Urine Clarity (Clear) Urine pH (5-8) Ur Specific [place] (1.005-1.025) Urine Protein (Negative) mg/dL Urine Ketones (Negative) mg/dL Urine Blood (Negative) Urine Nitrite (Negative) Urine Bilirubin (Negative) Urine Urobilinogen (Up TO 0.2) EU/dL Ur Leukocyte Esterase (Negative) Urine Glucose (Negative) mg/dL Valproic Acid Cancelled Ethyl Alcohol COVID-19 Source Critical Care Time Critical Care Time Critical Care Time: Yes Total Critical Care Time: 60 Attestation: IV potassium, IV hydration, IV insulin, telemetry monitoring, NG tube placement, diagnostic imaging, admission to hospital
[2021-03-03 12:35] LABS: COVID-19 PCR Negative (Negative)
[2021-03-03 13:06] LABS: VALPROIC ACID 16.8 ug/mL
[2021-03-03 13:11] LABS: ALT 12 U/L (14-59); AST 9 U/L (15-37); Albumin 3.1 g/dL (3.4-5.0); Alkaline Phosphatase 141 U/L (46-116); BUN 43 mg/dL (7-18); Bilirubin, Total 0.5 mg/dL (0.2-1.0); CREATININE 2.6 mg/dL (0.55-1.02); Calcium 8.9 mg/dL (8.5-10.1); Chloride 78 mmol/L (98-107); Estimated GFR 18.78 (mL/min/1.73m2); Lipase 88 U/L (73-393); PHOSPHORUS 3.8 mg/dL (2.6-4.7); Potassium 3.9 mmol/L (3.5-5.1); Total Protein 6.5 g/dL (6.4-8.2)
[2021-03-03 13:14] LABS: Troponin I < 0.05 ng/mL (<0.06)
--- NOTE | 2021-03-03 13:15 | DI.CT_ITS ---
Exam(s) CT ABDOMEN PELVIS WO EXAM: CT ABDOMEN PELVIS WO CLINICAL HISTORY: renal failure, abdominal pain. TECHNIQUE: Imaging Protocol: Axial computed tomography images with coronal and sagittal reformatted images were created and reviewed CONTRAST MATERIAL: Intravenous: none Oral: None COMPARISON: CT CT BRAIN NECK CTA from 11/05/2020 FINDINGS: VISUALIZED LUNG BASES: Infiltrate in the right lung base posterior basal segment right lower lobe. S mall bilateral pleural effusions. ABDOMEN: Esophagus is dilated and fluid-filled than the stomach is also significantly dilated. Duodenum is no rmal diameter. Small and large bowel loops are normal diameter. LIVER: There are no obvious focal hepatic lesions evident of this noninfused study. GALLBLADDER/BILIARY: There are tiny calculi in the gallbladder neck. Gallbladder is not edematous no r distended. CBD is not dilated. PANCREAS: Single tiny 2 millimeter mid level parenchymal calcification. No obvious pancreatic mass i s evident on this noninfused study. The pancreatic duct is not dilated. SPLEEN: Spleen is not enlarged. No obvious intrasplenic lesions. ADRENALS: Thickening of the left adrenal gland noted. KIDNEYS:No cysts evident. No solid renal masses. No calculi nor hydronephrosis.. Urinary bladder is slightly distended. ABDOMINAL AORTA: Abdominal aorta is not enlarged. LYMPH NODES: There is no retroperitoneal nor paraaortic adenopathy. ABDOMINAL WALL: There is a lateral right side fat containing abdominal wall hernia. Does not contain bowel loops. Hernia sac measures 5.5 x 3 cm. GI: There is no evidence of bowel obstruction, free air, nor abscess. PELVIS: LYMPH NODES: There is no intrapelvic nor inguinal adenopathy. GI: No evidence of appendicitis.No evidence of sigmoid diverticulitis. URINARY BLADDER: Distended. No masses. No intraluminal radiopaque calculi REPRODUCTIVE: Uterus is surgically absent. No abnormal adnexal masses. No free fluid in the pelvis OSSEOUS: No significant osseous lesions. IMPRESSION: 1. There is gastric and duodenal and esophageal distension. No obvious point of transition small-bow el obstruction. No colonic obstruction. 2. There are multiple tiny gallstones in the gallbladder neck. No gallbladder wall edema. CBD is no t dilated. 3. Fat containing lateral right abdominal hernia measuring 5.5 x 3 cm. No bowel loops within the her manisha sac. Uterus is surgically absent. No abnormal adnexal masses. Urinary bladder is distended. RADIATION DOSE DELIVERED: 995.68mGy.cm Total DLP DATA REPOSITORY: All CT scans at this facility are submitted to the National Radiology Data Registry (NRDR) Dose Index Registry (DIR) with the [employer] ([employer]). RADIATION OPTIMIZATION: All CT scans at this facility use at least one of these dose optimization te chniques: automated exposure control; mA and/or kV adjustment per patient size (includes targeted exa ms where dose is matched to clinical indication); or iterative reconstruction.
[2021-03-03 13:16] LABS: Glucose 1689 mg/dL (74-106); Sodium 116 mmol/L (136-145)
[2021-03-03 13:26] LABS: ETHANOL BLOOD < 3.0 mg/dL (<10)
--- NOTE | 2021-03-03 14:00 | DI.RAD_ITS ---
Exam(s) XR CHEST 1V IN DI DEPT EXAM: XR CHEST 1V IN DI DEPT CLINICAL HISTORY: fever, cough. TECHNIQUE: 2D digital imaging was performed. COMPARISON: CR XR CHEST 2V PA LATERAL from 11/05/2020 FINDINGS: Heart size normal.. The mediastinum is not widened. There is infiltrate in the right lung base. Also infiltrate in the left lung base left lower lobe re trocardiac region. No pleural effusions IMPRESSION: Infiltrates evident in both lung bases.No pleural effusions. DATA REPOSITORY: RADIATION DOSE DELIVERED: All CT scans at this facility use at least one of these dose optimization techniques: automated exposure control; mA and/or kV adjustment per patient size (includes targeted e xams where dose is matched to clinical indication); or iterative reconstruction.
[2021-03-03 15:05] LABS: Glucose 1433 mg/dL (74-106)
--- NOTE | 2021-03-03 15:19 | W.PM.HP.N ---
Date of service: 03/03/21 Time of Service: 16:44 Assessment and Plan Assessment and plan (1) Hyperosmolar nonketotic coma in diabetes: Status: Acute Assessment and plan: Admit to the ICU on insulin drip with IVF, monitoring electrolytes. Transition to basal bolus insulin once home doses are known. NPO. (2) Sepsis: Status: Acute Assessment and plan: Due to CAP vs aspiration PNA. Start zosyn. Await blood cx. IVF. (3) CAP (community acquired pneumonia): Status: Acute Assessment and plan: vs aspiration PNA. As above (4) Alcohol withdrawal: Status: Suspected Assessment and plan: It is not clear if the patient is coming form home or from the rehab facility. We are trying to clarify this. At this point, I feel safest treating her with benzodiazepines. Stat thiamine. (5) Toxic metabolic encephalopathy: Status: Acute Assessment and plan: due to above. (6) Pseudohyponatremia: Status: Acute Assessment and plan: Should correct with correction of glucose (7) Lactic acidosis: Status: Acute Assessment and plan: Improved. Due to dehydration/hyperglycemia. Continue IVF/treatment of HHNK. (8) Atrial flutter: Status: Acute Assessment and plan: New Dx. Rate controlled. Hydrate. Obtain echo. Given brown description of gastric contents, would not start on AC. (9) Gastroparesis: Status: Acute Assessment and plan: Start reglan as patient is intolerant of NGT. Gastric contents described as brown - ensure no GI bleeding. PPI. (10) Cholelithiasis: Status: Acute Assessment and plan: With stones in the gallbladder neck. No evidence of cholecystitis. Consult general surgery. (11) DVT prophylaxis: Status: Acute Assessment and plan: SCDs (12) Discharge planning issues: Status: Acute Assessment and plan: Full code Admit to ICU. Total Critical Care Time 45 minutes. History of Present Illness History of Present Illness Chief Complaint: altered mental status Narrative: Ms Irving is a 60 year old female with PMHx of IDDM (per the ED provider), as well as Bipolar 1, Depression and anxiety, who presented to [facility] ED today from home per nursing (per patient, who is confused, [facility]) with AMS and BG of 1689, without evidence of DKA (ph of 7.32, Anion gap of 12.0, no ketones on UA). She was diagnosed with HHNK and initiated on IVF as well as insulin gtt. CT head was negative. CT abdomen/pelvis showed gastric/duodenal/esophageal distention, for which an NGT was placed. It is suspected that she has gastroparesis. Since then, the patient has evidently pulled out her NGT with brown secretions, not tested for blood. Prior to coming here, the patient had nausea/vomiting and cough x several days. She cannot tell me whether her cough was productive or what the color of emetic contents was. Her last drink was 5 days ago, per her, and she likes to drink vodka. She cannot tell me if she has ever had an alcohol withdrawal seizure. She was COVID negative. Hospitalist admission was requested. Review of Systems All systems reviewed & are unremarkable except as noted in HPI and below PFSH Medical History (Updated 03/03/21 @ 18:11 by Erin Damon MD) Alcohol abuse Anxiety Bipolar 1 disorder Depression Diabetes History of pilonidal cyst Surgical History History of section History of hysterectomy History of tonsillectomy Social History Smoking/Tobacco Use Status: Former Tobacco Use Quit Date: 04/09/19 Smoking risk assessment performed?: Yes Alcohol Intake: current Alcohol Intake frequency: a few times a month Drug use: Never Substance use type: does not use Do you feel safe at home: Yes Do you feel safe in your relationship?: Yes Meds Allergies and Home Medications Allergies Allergy/AdvReac Type Severity Reaction Status Date / Time meperidine AdvReac gi upset Unverified 03/03/21 11:20 Home Medications Medication Instructions Recorded Confirmed Type divalproex 1,000 mg PO DAILY 07/25/14 05/10/19 History alprazolam [Xanax] 2 mg PO HS 05/10/19 03/03/21 History pantoprazole 40 mg PO BID 05/10/19 03/03/21 History valproic acid 250 mg PO DAILY 05/10/19 03/03/21 History Exam Narrative Exam Narrative: General: Tremulous middle-aged female who repeats answers to prior questions when a new question is asked, A&Ox2, slow to respond Neurological: A&Ox2, tremulous, slow to respond, no focal deficits Psychiatric: restless but cooperative Skin: Dry, intact; R knee mottled. HEENT: Atraumatic, normopcehalic, EOMI, dry MM, no submandibular or cervical lymphadenopathy, no goiter or JVD Cardiovascular: RRR, tachycardic Lungs: CTAB anteriorly Gastrointestinal: soft, tender in LLQ Genitourinary: has a barba Extremities: no edema BLE's, skin dry, trace pedal pulses B, mottling of R knee. Results Imaging Additional studies: CT abdomen/pelvis: 1. There is gastric and duodenal and esophageal distension. No obvious point of transition small-bowel obstruction. No colonic obstruction. 2. There are multiple tiny gallstones in the gallbladder neck. No gallbladder wall edema. CBD is not dilated. 3. Fat containing lateral right abdominal hernia measuring 5.5 x 3 cm. No bowel loops within the hernia sac. Uterus is surgically absent. No abnormal adnexal masses. Urinary bladder is distended. CT head: No acute intracranial findings on this noninfused CT scan of the brain. CXR: Infiltrates evident in both lung bases.No pleural effusions. EKG: Atrial flutter, HR 99, nonspecific ST changes. Labs Result diagrams: 03/03/21 11:00 03/03/21 15:49 Labs: Laboratory Results - last 24 hr 03/03/21 03/03/21 03/03/21 11:00 11:00 11:00 WBC 15.13 H RBC 5.42 H Hgb 15.9 H Hct 54.0 H MCV 99.6 H MCH 29.3 MCHC 29.4 L RDW 13.0 Plt Count 226 MPV 12.6 H Immature Gran % 0.5 Neutrophils % 87.7 Lymphocytes % 3.0 Monocytes % 8.5 Eosinophils % 0.1 Basophils % 0.2 Nucleated RBC % 0 Absolute Neutrophils 13.27 H Absolute Lymphocytes 0.45 L Absolute Monocytes 1.29 H Absolute Eosinophils 0.02 Absolute Basophils 0.03 VBG pH VBG pCO2 VBG pO2 VBG HCO3 VBG Total CO2 VBG O2 Saturation VBG Base Excess VBG Lactate 6.3 H* Sodium Potassium Chloride Carbon Dioxide Anion Gap BUN Creatinine Estimated GFR/1.73 m2 Glucose Calcium Phosphorus Magnesium Total Bilirubin AST ALT Alkaline Phosphatase Troponin I Total Protein Albumin Lipase Urine Color Urine Clarity Urine pH Ur Specific [place] Urine Protein Urine Ketones Urine Blood Urine Nitrite Urine Bilirubin Urine Urobilinogen Ur Leukocyte Esterase Urine Glucose Valproic Acid Ethyl Alcohol COVID-19 Source Nasal/Nares SARS-CoV-2 (PCR) Negative 03/03/21 03/03/21 03/03/21 11:00 11:00 11:50 WBC RBC Hgb Hct MCV MCH MCHC RDW Plt Count MPV Immature Gran % Neutrophils % Lymphocytes % Monocytes % Eosinophils % Basophils % Nucleated RBC % Absolute Neutrophils Absolute Lymphocytes Absolute Monocytes Absolute Eosinophils Absolute Basophils VBG pH VBG pCO2 VBG pO2 VBG HCO3 VBG Total CO2 VBG O2 Saturation VBG Base Excess VBG Lactate Sodium Cancelled Potassium Cancelled Chloride Cancelled Carbon Dioxide Cancelled Anion Gap Cancelled BUN Cancelled Creatinine Cancelled Estimated GFR/1.73 m2 Cancelled Glucose Cancelled Calcium Cancelled Phosphorus Magnesium 2.8 H Total Bilirubin Cancelled AST Cancelled ALT Cancelled Alkaline Phosphatase Cancelled Troponin I Total Protein Cancelled Albumin Cancelled Lipase Urine Color Yellow Urine Clarity Clear Urine pH 6.0 Ur Specific [place] <= 1.005 Urine Protein Negative Urine Ketones Negative Urine Blood Negative Urine Nitrite Negative Urine Bilirubin Negative Urine Urobilinogen 0.2 Ur Leukocyte Esterase Negative Urine Glucose 500 H Valproic Acid Ethyl Alcohol COVID-19 Source SARS-CoV-2 (PCR) 03/03/21 03/03/21 03/03/21 11:50 11:50 11:50 WBC RBC Hgb Hct MCV MCH MCHC RDW Plt Count MPV Immature Gran % Neutrophils % Lymphocytes % Monocytes % Eosinophils % Basophils % Nucleated RBC % Absolute Neutrophils Absolute Lymphocytes Absolute Monocytes Absolute Eosinophils Absolute Basophils VBG pH 7.32 VBG pCO2 48 VBG pO2 51 VBG HCO3 25 VBG Total CO2 22 L VBG O2 Saturation 82 VBG Base Excess -1 VBG Lactate Sodium Potassium Chloride Carbon Dioxide Anion Gap BUN Creatinine Estimated GFR/1.73 m2 Glucose Calcium Phosphorus Magnesium Total Bilirubin AST ALT Alkaline Phosphatase Troponin I Cancelled Total Protein Albumin Lipase Urine Color Urine Clarity Urine pH Ur Specific [place] Urine Protein Urine Ketones Urine Blood Urine Nitrite Urine Bilirubin Urine Urobilinogen Ur Leukocyte Esterase Urine Glucose Valproic Acid Ethyl Alcohol Cancelled COVID-19 Source SARS-CoV-2 (PCR) 03/03/21 03/03/21 03/03/21 11:50 11:50 12:40 WBC RBC Hgb Hct MCV MCH MCHC RDW Plt Count MPV Immature Gran % Neutrophils % Lymphocytes % Monocytes % Eosinophils % Basophils % Nucleated RBC % Absolute Neutrophils Absolute Lymphocytes Absolute Monocytes Absolute Eosinophils Absolute Basophils VBG pH VBG pCO2 VBG pO2 VBG HCO3 VBG Total CO2 VBG O2 Saturation VBG Base Excess VBG Lactate Sodium 116 L* Potassium 3.9 Chloride 78 L Carbon Dioxide 26.0 Anion Gap 12.0 H BUN 43 H Creatinine 2.6 H Estimated GFR/1.73 m2 18.78 Glucose 1689 H* Calcium 8.9 Phosphorus Cancelled 3.8 Magnesium Total Bilirubin 0.5 AST 9 L ALT 12 L Alkaline Phosphatase 141 H Troponin I < 0.05 Total Protein 6.5 Albumin 3.1 L Lipase Cancelled 88 Urine Color Urine Clarity Urine pH Ur Specific [place] Urine Protein Urine Ketones Urine Blood Urine Nitrite Urine Bilirubin Urine Urobilinogen Ur Leukocyte Esterase Urine Glucose Valproic Acid Cancelled Ethyl Alcohol < 3.0 COVID-19 Source SARS-CoV-2 (PCR) 03/03/21 03/03/21 03/03/21 12:40 14:45 15:09 WBC RBC Hgb Hct MCV MCH MCHC RDW Plt Count MPV Immature Gran % Neutrophils % Lymphocytes % Monocytes % Eosinophils % Basophils % Nucleated RBC % Absolute Neutrophils Absolute Lymphocytes Absolute Monocytes Absolute Eosinophils Absolute Basophils VBG pH VBG pCO2 VBG pO2 VBG HCO3 VBG Total CO2 VBG O2 Saturation VBG Base Excess VBG Lactate Sodium Potassium Chloride Carbon Dioxide Anion Gap BUN Creatinine Estimated GFR/1.73 m2 Glucose 1433 H* Calcium Phosphorus Magnesium Total Bilirubin AST ALT Alkaline Phosphatase Troponin I Total Protein Albumin Lipase Urine Color Urine Clarity Urine pH Ur Specific [place] Urine Protein Urine Ketones Urine Blood Urine Nitrite Urine Bilirubin Urine Urobilinogen Ur Leukocyte Esterase Urine Glucose Valproic Acid 16.8 Cancelled Ethyl Alcohol COVID-19 Source SARS-CoV-2 (PCR) Last Vital Signs Temp 34.6 C L 03/03/21 10:47 Pulse 102 H 03/03/21 14:09 Resp 23 03/03/21 14:50 BP 112/69 03/03/21 14:09 Pulse Ox 91 L 03/03/21 14:50
[2021-03-03 15:20] LABS: *AMPHETAMINES SCREEN URINE Negative (Negative); *BARBITURATES SCREEN URINE Negative (Negative); *BENZODIAZEPINES SCREEN URINE Negative (Negative); Cannabinoids THC Negative (Negative); Cocaine Screen,Urine Negative (Negative); METHADONE URINE SCREEN Negative (Negative); OPIATES URINE SCREEN Negative (Negative)
[2021-03-03 15:21] LABS: Tricyclic Antidepressants Positive (Negative)
--- NOTE | 2021-03-03 15:42 | NUR.NOTE ---
NGT placed without difficult #12 right nares 65 cm 600 ml dark brown liquid suctioned.
--- NOTE | 2021-03-03 15:44 | NUR.NOTE ---
Mcrae #[id number] inserted without difficulty 800 clear yellow urine drained
[2021-03-03 16:00] LABS: Lactate 3.2 mmol/L (0.6-1.4)
[2021-03-03 16:12] LABS: Anion Gap 11.4 mmol/L (3-11); BUN 41 mg/dL (7-18); CO2 26.6 mmol/L (21.0-32.0); CREATININE 2.2 mg/dL (0.55-1.02); Calcium 9.5 mg/dL (8.5-10.1); Chloride 86 mmol/L (98-107); Estimated GFR 22.77 (mL/min/1.73m2); Magnesium 2.9 mg/dL (1.8-2.4); PHOSPHORUS 3.8 mg/dL (2.6-4.7); Potassium 3.4 mmol/L (3.5-5.1)
[2021-03-03 16:24] LABS: Glucose 1527 mg/dL (74-106)
[2021-03-03 16:25] LABS: Sodium 124 mmol/L (136-145)
--- NOTE | 2021-03-03 16:27 | NUR.NOTE ---
Nursing Note: Dr. Damon notified of lactate 3.2; glucose 1527; sodium 124. Graciela Shay
[2021-03-03] MEDS: Pantoprazole 40 MG VIAL IVP (17:16)
[2021-03-03] MEDS: POTASSIUM CHLORIDE/0.45% NACL 1,000 ML 150 MEQ IV (17:19)
[2021-03-03] MEDS: INSULIN REGULAR IN 0.9 % NACL 100 UNIT/100 ML BAG 7.484 UNIT IV (17:29)
[2021-03-03] MEDS: Normal Saline 500 ML 30 ML IV (18:19)
[2021-03-03] MEDS: PIPERACILLIN/TAZO 3.375 GM in Normal Saline 50 ML IVPB (18:20)
[2021-03-03] MEDS: POTASSIUM CHLORIDE 20 MEQ/100 ML BAG 50 MEQ IVPB ×2 (18:33→20:45)
[2021-03-03] MEDS: Normal Saline Flush 10 ML SYR IVP (18:45)
[2021-03-03] MEDS: THIAMINE 100 MG in Normal Saline 100 ML 200 MG IVPB (18:45)
--- NOTE | 2021-03-03 19:30 | SCONE_ITS ---
Date of service: 03/04/21 Time of Service: 16:00 Assessment and Plan Assessment and plan (1) Alcohol withdrawal: Status: Ruled-out (2) Cholelithiasis: Status: Acute Assessment and plan: not a surgical candidate pt cannot give me any history. There are no signs of acute cholecytits at this time. (3) Gastroparesis: Status: Acute Assessment and plan: when medically stab;e- pt needs a gasric empyting study. Start on reglan she has long standing poorly controlled DM and has high risk factors for motility issues -also high risk for CAO & ETOH cirrhosis -US of liver whe medically stable -screen for hepatitis -check lipid profile -GI & DVT prophalaxis 90 min spent in consuultatio (4) Atrial flutter: Status: Acute (5) DVT prophylaxis: Status: Acute (6) Lactic acidosis: Status: Acute (7) Toxic metabolic encephalopathy: Status: Acute (8) Hyperosmolar nonketotic coma in diabetes: Status: Acute (9) Bipolar 1 disorder: Status: Acute (10) MARILIN (acute kidney injury): Status: Acute (11) Chronic pancreatitis due to acute alcohol intoxication: Status: Acute Assessment and plan: -calcificatons on CT -panc duct appears nl -possible exocrine insuff. (12) Dehydration with hyponatremia: Status: Acute (13) Poorly controlled diabetes mellitus: Status: Acute (14) Sepsis: Status: Acute (15) CAP (community acquired pneumonia): Status: Acute (16) Pseudohyponatremia: Status: Resolved (17) Ventral hernia: Status: Acute (18) ETOH abuse: Status: Chronic History of Present Illness Narrative: Pt has a hx of ETOH abuse/poorly controlled DM for 10+ yrs. She presents to the ED w/ confusion. Glucose in >1000. I was called regardining abdnomralities on CT scan. She has a grossly dilated esoph a stomach, still filled w/ fluid. Mostl likely this is due to gastroparesis from long standing- poorly controlled DM and damage to nerves. Pt is unable to give an information at this time. Ct is reviewed, as well as US. LFT's and amylase are nl. I cannot get any history from her regarding her GB. where ever I touch her on her abdomen she c/o pain. Review of Systems Unobtainable due to mental condition [facility] Medical History Alcohol abuse Anxiety Bipolar 1 disorder Depression Diabetes History of pilonidal cyst Surgical History History of section History of hysterectomy History of tonsillectomy Social History Smoking/Tobacco Use Status: Former Tobacco Use Quit Date: 04/09/19 Smoking risk assessment performed?: Yes Alcohol Intake: current Alcohol Intake frequency: a few times a month Drug use: Never Substance use type: does not use Do you feel safe at home: Yes Do you feel safe in your relationship?: Yes Exam HENMT Other: no jaundice. no eye redness or swelling pt won't cooperate w/ exam or is cognitive for neuro testing. Resp Effort & Inspection: normal respiratory effort Auscultation: clear to auscultation bilaterally GI Palpation: soft, not firm, no guarding, no masses and No ascites Auscultation: hypoactive bowel sounds Results Last Vital Signs Temp 35.8 C L 03/03/21 17:14 Pulse 112 H 03/03/21 17:14 Resp 28 H 03/03/21 17:14 BP 102/67 03/03/21 17:14 Pulse Ox 95 03/03/21 16:16 Labs Result diagrams: 03/04/21 04:50 03/04/21 04:50 Labs: Laboratory Results - last 24 hr 03/03/21 03/03/21 03/03/21 11:00 11:00 11:00 WBC 15.13 H RBC 5.42 H Hgb 15.9 H Hct 54.0 H MCV 99.6 H MCH 29.3 MCHC 29.4 L RDW 13.0 Plt Count 226 MPV 12.6 H Immature Gran % 0.5 Neutrophils % 87.7 Lymphocytes % 3.0 Monocytes % 8.5 Eosinophils % 0.1 Basophils % 0.2 Nucleated RBC % 0 Absolute Neutrophils 13.27 H Absolute Lymphocytes 0.45 L Absolute Monocytes 1.29 H Absolute Eosinophils 0.02 Absolute Basophils 0.03 VBG pH VBG pCO2 VBG pO2 VBG HCO3 VBG Total CO2 VBG O2 Saturation VBG Base Excess VBG Lactate 6.3 H* Sodium Potassium Chloride Carbon Dioxide Anion Gap BUN Creatinine Estimated GFR/1.73 m2 Glucose Calcium Phosphorus Magnesium Total Bilirubin AST ALT Alkaline Phosphatase Troponin I Total Protein Albumin Lipase Urine Color Urine Clarity Urine pH Ur Specific [place] Urine Protein Urine Ketones Urine Blood Urine Nitrite Urine Bilirubin Urine Urobilinogen Ur Leukocyte Esterase Urine Glucose Urine Opiates Screen Urine Methadone Screen Ur Barbiturates Screen Valproic Acid Ur Tricyclics Screen Ur Amphetamines Screen U Benzodiazepines Scrn Urine Cocaine Screen Ur THC Screen Ethyl Alcohol COVID-19 Source Nasal/Nares SARS-CoV-2 (PCR) Negative 03/03/21 03/03/21 03/03/21 11:00 11:00 11:00 WBC RBC Hgb Hct MCV MCH MCHC RDW Plt Count MPV Immature Gran % Neutrophils % Lymphocytes % Monocytes % Eosinophils % Basophils % Nucleated RBC % Absolute Neutrophils Absolute Lymphocytes Absolute Monocytes Absolute Eosinophils Absolute Basophils VBG pH VBG pCO2 VBG pO2 VBG HCO3 VBG Total CO2 VBG O2 Saturation VBG Base Excess VBG Lactate Sodium Potassium Chloride Carbon Dioxide Anion Gap BUN Creatinine Estimated GFR/1.73 m2 Glucose Calcium Phosphorus Magnesium 2.8 H Total Bilirubin AST ALT Alkaline Phosphatase Troponin I Total Protein Albumin Lipase Urine Color Yellow Urine Clarity Clear Urine pH 6.0 Ur Specific [place] <= 1.005 Urine Protein Negative Urine Ketones Negative Urine Blood Negative Urine Nitrite Negative Urine Bilirubin Negative Urine Urobilinogen 0.2 Ur Leukocyte Esterase Negative Urine Glucose 500 H Urine Opiates Screen Negative Urine Methadone Screen Negative Ur Barbiturates Screen Negative Valproic Acid Ur Tricyclics Screen Positive A Ur Amphetamines Screen Negative U Benzodiazepines Scrn Negative Urine Cocaine Screen Negative Ur THC Screen Negative Ethyl Alcohol COVID-19 Source SARS-CoV-2 (PCR) 03/03/21 03/03/21 03/03/21 11:50 11:50 11:50 WBC RBC Hgb Hct MCV MCH MCHC RDW Plt Count MPV Immature Gran % Neutrophils % Lymphocytes % Monocytes % Eosinophils % Basophils % Nucleated RBC % Absolute Neutrophils Absolute Lymphocytes Absolute Monocytes Absolute Eosinophils Absolute Basophils VBG pH VBG pCO2 VBG pO2 VBG HCO3 VBG Total CO2 VBG O2 Saturation VBG Base Excess VBG Lactate Sodium Cancelled Potassium Cancelled Chloride Cancelled Carbon Dioxide Cancelled Anion Gap Cancelled BUN Cancelled Creatinine Cancelled Estimated GFR/1.73 m2 Cancelled Glucose Cancelled Calcium Cancelled Phosphorus Magnesium Total Bilirubin Cancelled AST Cancelled ALT Cancelled Alkaline Phosphatase Cancelled Troponin I Cancelled Total Protein Cancelled Albumin Cancelled Lipase Urine Color Urine Clarity Urine pH Ur Specific [place] Urine Protein Urine Ketones Urine Blood Urine Nitrite Urine Bilirubin Urine Urobilinogen Ur Leukocyte Esterase Urine Glucose Urine Opiates Screen Urine Methadone Screen Ur Barbiturates Screen Valproic Acid Ur Tricyclics Screen Ur Amphetamines Screen U Benzodiazepines Scrn Urine Cocaine Screen Ur THC Screen Ethyl Alcohol Cancelled COVID-19 Source SARS-CoV-2 (PCR) 03/03/21 03/03/21 03/03/21 11:50 11:50 11:50 WBC RBC Hgb Hct MCV MCH MCHC RDW Plt Count MPV Immature Gran % Neutrophils % Lymphocytes % Monocytes % Eosinophils % Basophils % Nucleated RBC % Absolute Neutrophils Absolute Lymphocytes Absolute Monocytes Absolute Eosinophils Absolute Basophils VBG pH 7.32 VBG pCO2 48 VBG pO2 51 VBG HCO3 25 VBG Total CO2 22 L VBG O2 Saturation 82 VBG Base Excess -1 VBG Lactate Sodium Potassium Chloride Carbon Dioxide Anion Gap BUN Creatinine Estimated GFR/1.73 m2 Glucose Calcium Phosphorus Cancelled Magnesium Total Bilirubin AST ALT Alkaline Phosphatase Troponin I Total Protein Albumin Lipase Cancelled Urine Color Urine Clarity Urine pH Ur Specific [place] Urine Protein Urine Ketones Urine Blood Urine Nitrite Urine Bilirubin Urine Urobilinogen Ur Leukocyte Esterase Urine Glucose Urine Opiates Screen Urine Methadone Screen Ur Barbiturates Screen Valproic Acid Cancelled Ur Tricyclics Screen Ur Amphetamines Screen U Benzodiazepines Scrn Urine Cocaine Screen Ur THC Screen Ethyl Alcohol COVID-19 Source SARS-CoV-2 (PCR) 03/03/21 03/03/21 03/03/21 12:40 12:40 14:45 WBC RBC Hgb Hct MCV MCH MCHC RDW Plt Count MPV Immature Gran % Neutrophils % Lymphocytes % Monocytes % Eosinophils % Basophils % Nucleated RBC % Absolute Neutrophils Absolute Lymphocytes Absolute Monocytes Absolute Eosinophils Absolute Basophils VBG pH VBG pCO2 VBG pO2 VBG HCO3 VBG Total CO2 VBG O2 Saturation VBG Base Excess VBG Lactate Sodium 116 L* Potassium 3.9 Chloride 78 L Carbon Dioxide 26.0 Anion Gap 12.0 H BUN 43 H Creatinine 2.6 H Estimated GFR/1.73 m2 18.78 Glucose 1689 H* 1433 H* Calcium 8.9 Phosphorus 3.8 Magnesium Total Bilirubin 0.5 AST 9 L ALT 12 L Alkaline Phosphatase 141 H Troponin I < 0.05 Total Protein 6.5 Albumin 3.1 L Lipase 88 Urine Color Urine Clarity Urine pH Ur Specific [place] Urine Protein Urine Ketones Urine Blood Urine Nitrite Urine Bilirubin Urine Urobilinogen Ur Leukocyte Esterase Urine Glucose Urine Opiates Screen Urine Methadone Screen Ur Barbiturates Screen Valproic Acid 16.8 Ur Tricyclics Screen Ur Amphetamines Screen U Benzodiazepines Scrn Urine Cocaine Screen Ur THC Screen Ethyl Alcohol < 3.0 COVID-19 Source SARS-CoV-2 (PCR) 03/03/21 03/03/21 03/03/21 15:09 15:49 15:49 WBC RBC Hgb Hct MCV MCH MCHC RDW Plt Count MPV Immature Gran % Neutrophils % Lymphocytes % Monocytes % Eosinophils % Basophils % Nucleated RBC % Absolute Neutrophils Absolute Lymphocytes Absolute Monocytes Absolute Eosinophils Absolute Basophils VBG pH VBG pCO2 VBG pO2 VBG HCO3 VBG Total CO2 VBG O2 Saturation VBG Base Excess VBG Lactate 3.2 H* Sodium 124 L Potassium 3.4 L Chloride 86 L Carbon Dioxide 26.6 Anion Gap 11.4 H BUN 41 H Creatinine 2.2 H Estimated GFR/1.73 m2 22.77 Glucose 1527 H* Calcium 9.5 Phosphorus 3.8 Magnesium 2.9 H Total Bilirubin AST ALT Alkaline Phosphatase Troponin I Total Protein Albumin Lipase Urine Color Urine Clarity Urine pH Ur Specific [place] Urine Protein Urine Ketones Urine Blood Urine Nitrite Urine Bilirubin Urine Urobilinogen Ur Leukocyte Esterase Urine Glucose Urine Opiates Screen Urine Methadone Screen Ur Barbiturates Screen Valproic Acid Cancelled Ur Tricyclics Screen Ur Amphetamines Screen U Benzodiazepines Scrn Urine Cocaine Screen Ur THC Screen Ethyl Alcohol COVID-19 Source SARS-CoV-2 (PCR)
[2021-03-03 19:36] LABS: Glucose 1158 mg/dL (74-106)
[2021-03-03 20:20] LABS: Anion Gap 13.8 mmol/L (3-11); BUN 36 mg/dL (7-18); CO2 25.2 mmol/L (21.0-32.0); CREATININE 2.1 mg/dL (0.55-1.02); Calcium 9.6 mg/dL (8.5-10.1); Chloride 97 mmol/L (98-107); Estimated GFR 24.02 (mL/min/1.73m2); Magnesium 2.7 mg/dL (1.8-2.4); Potassium 3.4 mmol/L (3.5-5.1)
[2021-03-03 20:23] LABS: Glucose 855 mg/dL (74-106)
[2021-03-03 20:25] LABS: Troponin I < 0.05 ng/mL (<0.06)
[2021-03-03 20:27] LABS: Sodium 136 mmol/L (136-145)
[2021-03-03 20:44] LABS: C-Reactive Protein 14.03 mg/dL (0.0-0.3); GGT 33 U/L (5-55)
[2021-03-03] MEDS: Metoclopramide 10 MG/2 ML VIAL IVP (20:46)
[2021-03-03 21:34] LABS: Glucose 776 mg/dL (74-106)
[2021-03-03 22:50] LABS: Glucose 723 mg/dL (74-106)
[2021-03-04] VITALS (40 sets, daily range): BP systolic 83–173; BP diastolic 46–98; PULSE 101–122; RESP 12–32; TEMP 36.2–36.5; O2SAT 90–96
--- NOTE | 2021-03-04 | DI.US_ITS ---
Exam(s) US ABDOMEN LIMITED EXAM: US ABDOMEN LIMITED CLINICAL HISTORY: question of cholecystitis TECHNIQUE: Ultrasound abdomen performed using standard protocol. Evaluation gallbladder only. COMPARISON: CT CT ABDOMEN PELVIS WO from 03/03/[address] ABDOMEN PELVIS WO from 03/03/2021 FINDINGS: Limited exam due to patient body habitus.. The gallbladder was evaluated. GALLBLADDER: Small stones and sludge are visible. No evidence of wall thickening. No pericholecystic fluid identified. TATE'S SIGN: Negative. BILIARY SYSTEM: No intrahepatic or extrahepatic biliary ductal dilation. ASCITES: None seen. IMPRESSION: Tiny stones and sludge. No evidence of acute cholecystitis. DATA REPOSITORY:
--- NOTE | 2021-03-04 | DI.RAD_ITS ---
Exam(s) XR PORTABLE CHEST AP EXAM: XR PORTABLE CHEST AP CLINICAL HISTORY: ?CHF TECHNIQUE: 2D digital imaging was performed. COMPARISON: CR XR CHEST 2V PA LATERAL from 11/05/2020 CR XR CHEST 2V PA LATERAL from 11/05/2020 CR XR CHEST 1V IN DI DEPT from 03/03/2021 CR XR CHEST 1V IN DI DEPT from 03/03/2021 FINDINGS: Exam is limited by poor pulmonary inflation overlying monitoring leads which partially obscure the ri ght lung.. Increased densities are noted at both lung bases, with increasing densities on the left i n part which could be secondary to atelectasis due to poor pulmonary inflation. No visible effusion or pneumothorax. Normal heart size. IMPRESSION: Bibasilar infiltrates and atelectasis DATA REPOSITORY: RADIATION DOSE DELIVERED:
[2021-03-04 00:17] LABS: BUN 36 mg/dL (7-18); CO2 27.6 mmol/L (21.0-32.0); CREATININE 1.6 mg/dL (0.55-1.02); Calcium 9.8 mg/dL (8.5-10.1); Estimated GFR 32.88 (mL/min/1.73m2); Magnesium 2.8 mg/dL (1.8-2.4)
[2021-03-04] MEDS: POTASSIUM CHLORIDE/0.45% NACL 1,000 ML 150 MEQ IV ×2 (00:20→07:18)
[2021-03-04 00:23] LABS: Glucose 625 mg/dL (74-106)
[2021-03-04 00:30] LABS: Anion Gap 10.4 mmol/L (3-11); Chloride 99 mmol/L (98-107); Glucose 622 mg/dL (74-106); Potassium 4.5 mmol/L (3.5-5.1); Sodium 137 mmol/L (136-145)
[2021-03-04] MEDS: PIPERACILLIN/TAZO 3.375 GM in Normal Saline 50 ML IVPB ×2 (00:41→05:01)
[2021-03-04 01:36] LABS: Glucose 577 mg/dL (74-106)
[2021-03-04 02:36] LABS: Glucose 561 mg/dL (74-106)
[2021-03-04 03:51] LABS: Glucose 506 mg/dL (74-106)
[2021-03-04] MEDS: Pantoprazole 40 MG VIAL IVP ×2 (05:00→19:15)
[2021-03-04] MEDS: Normal Saline Flush 10 ML SYR IVP ×2 (05:01→14:46)
[2021-03-04 05:02] LABS: Abs Immature Grans 0.14 10^3/uL (0.0-0.06); HCT 44.2 % (36.0-46.0); HGB 15.5 g/dL (11.2-15.7); MCH 29.2 pg (27.0-33.0); MCHC 35.1 % (32.0-36.0); MCV 83.2 fL (80-95); MPV 12.5 fL (8.0-11.0); Nucleated RBC 0 %; Platelet Count 188 10^3/uL (130-400); RBC 5.31 10^6/uL (3.93-5.22); RDW 12.5 % (11.7-14.6); RDW-SD 37.8 fL; WBC 18.28 10^3/uL (4.4-10.8)
[2021-03-04 05:13] LABS: Anion Gap 9.4 mmol/L (3-11); BUN 32 mg/dL (7-18); CO2 26.6 mmol/L (21.0-32.0); CREATININE 1.3 mg/dL (0.55-1.02); Calcium 9.1 mg/dL (8.5-10.1); Chloride 106 mmol/L (98-107); Estimated GFR 41.78 (mL/min/1.73m2); Glucose 421 mg/dL (74-106); Potassium 4.5 mmol/L (3.5-5.1); Sodium 142 mmol/L (136-145)
[2021-03-04 05:18] LABS: Cholesterol 230 mg/dL (<200); HDL Cholesterol 35 mg/dL (40-60); Magnesium 2.5 mg/dL (1.8-2.4); Triglyceride 418 mg/dL (<150)
[2021-03-04 05:20] LABS: Amylase 30 U/L (25-115)
[2021-03-04 05:25] LABS: Anion Gap 10.3 mmol/L (3-11); BUN 32 mg/dL (7-18); CO2 25.7 mmol/L (21.0-32.0); CREATININE 1.3 mg/dL (0.55-1.02); Calcium 9.2 mg/dL (8.5-10.1); Chloride 106 mmol/L (98-107); Estimated GFR 41.78 (mL/min/1.73m2); Glucose 419 mg/dL (74-106); Potassium 4.5 mmol/L (3.5-5.1); Sodium 142 mmol/L (136-145)
[2021-03-04 05:30] LABS: Hemoglobin A1C 11.8 % (<5.7)
[2021-03-04 05:39] LABS: LDL CHOLESTEROL 101 mg/dL (<100)
[2021-03-04 05:49] LABS: Absolute Lymphocyte Count 2.01 10^3/uL (1.2-3.4); Absolute Monocyte Count 2.74 10^3/uL (0.1-0.8); Absolute Neutrophil Count 13.53 10^3/uL (1.2-6.7); Diff Comment Manual Differential; RBC Morphology Normal
--- NOTE | 2021-03-04 08:00 | DI.US_ITS ---
APPROVED REPORT EXAM: Comprehensive 2D, Doppler, and color-flow Echocardiogram Patient Location: In-Patient Room/Bed: D[facility]889 Tag Marker: Marilee Chanel RDCS (AE) Indications: New onset atrial flutter Other Information Study Quality: Adequate. Technically limited study due to inability to position patient, uncooperativ e patient, exam done bedside. Conclusion Normal left ventricular wall thickness and chamber size. Estimated ejection fraction is 60 to 65%. There are no segmental wall motion abnormalities Normal right ventricular size and systolic function Both atria are normal in size There are no structural or hemodynamically significant valvular abnormalities Normal estimated right ventricular systolic pressure 21 mmHg Wall motion Left Ventricle The left ventricle is normal size. The left ventricular systolic function is normal. The left ventric ular ejection fraction is within the normal range. There is normal left ventricular wall thickness. T here is normal LV segmental wall motion. There is no ventricular septal defect visualized. LVEF is 60 -65%. Right Ventricle The right ventricle is normal size. The right ventricular systolic function is normal. The RVSP is 21 .1 mmHg. Atria The left atrium size is normal. The right atrium size is normal. The interatrial septum is intact wit h no evidence for an atrial septal defect. Aortic Valve The aortic valve is normal in structure. Aortic valve is trileaflet. There is no aortic valvular sten osis. No aortic regurgitation is present. Mitral Valve The mitral valve is normal in structure. No evidence of mitral valve stenosis. Trace mitral regurgita tion. Tricuspid Valve The tricuspid valve is normal in structure. There is no tricuspid valve stenosis. Trace tricuspid reg urgitation. Pulmonic Valve The pulmonary valve is normal in structure. There is no pulmonic valvular stenosis. There is no pulmo maritza valvular regurgitation. Great Vessels The aortic root is normal in size. The ascending aorta is normal in size. Aortic arch is not well vis ualized. IVC is normal in size and collapses >50% with inspiration. Pericardium There is no pericardial effusion. 2D Dimensions IVSD d PLAX 0.79 cm F: 0.6-1.0 LV Vol A2C d MOD 71.6 mL LVPW d PLAX 0.82 cm F: 0.6 - 1.0 LV Vol A4C d MOD 73.6 mL LVID d PLAX 4.03 cm F: 3.8 - 5.2 LA vol/ BSA A2C s A-L 19.7 mL/m2 LVDs 2.85 cm F: 2.2 - 3.5 LA vol/ BSA A4C s A-L 25.1 mL/m2 Ao Root d 2.54 cm F: 2.7 - 3.3 LA Vol/ BSA Biplane s A-L 22.5 mL/m2 RA Area A4C 7.57 cm2 LA Area A4C s MOD 15.70 cm2 RA Vol/ BSA A4C s A-L 7.8 mL/m2 LA Area A2C s MOD 14.09 cm2 Ao Asc Diam d 2.83 cm F: 2.3 - 3.1 LV EF A4C MOD 55.6 % LV EF Teichholz 56.5 % LV EF A2C MOD 56.1 % LVEF (Dahl's) 53.26 % F: 54 - 74 LV EF Biplane MOD 53.3 % LV Volume 57.71 mL F: 46 - 106 SV 39.16 mL LV Volume Index 32.97 mL/m2 F: 29 - 61 SV Index 22.31 mL/m2 LV Vol Biplane MOD 73.5 mL FS 29.15 % M-Mode TAPSE 1.92 cm (M/F) >1.7 LV Diastology MV E' medial 0.057 (>0.07 m/s) E/A Ratio 0.8 LV E/e MED 12.40 (<14) MV E Vmax 0.70 (0.4-1.3 m/s) MV E' lateral 0.086 (>0.1 m/s) MV A Vmax 0.90 (0.4-1.3 m/s) LV E/e LAT 8.15 (<14) MV E/A Ratio 0.75 MV E/E' medial 12.41 MV E/E' lateral 8.18 Aortic Valve LVOT Area 2.85 cm2 AoV Area Vmax 2.34 cm2 LVOT Vmax 1.30 m/s AoV Area/ BSA (Vmax) 1.33 cm2/m2 LVOT Mean Jacky. 0.80 m/s KAREL Mean Jacky. 2.00 cm2 LVOT Peak Grad 6.7 mmHg KAREL Mean Jacky. Index 1.14 cm2/m2 LVOT Mean Grad 3.1 mmHg LVOT VTI 0.186 m LVOT Diam s 1.90 cm AoV Vmax 1.58 m/s Velocity Ratio 0.82 AoV Mean Jacky. 1.15 m/s AoV Peak Grad 10.0 mmHg LVOT SV 52.97 mL AoV Mean Grad 5.8 mmHg AoV VTI 0.204 m AoV Area VTI 2.59 cm2 AoV Area/ BSA (VTI) 1.48 cm/m2 Mitral Valve MV DT 240 (160-240 msec) MV PHT 70 msec MV Area PHT 3.16 cm2 MV VTI 0.200 m MV Area VTI 2.65 (4.0-6.0 cm2) Pulmonary Valve PV Vmax 1.48 (0.5-1.5 m/s) RVOT Peak Gr. 6.97 mmHg PV Peak Grad 8.8 mmHg RVOT Mean Gr. 3.95 mmHg PV Mean Grad 5.0 mmHg RVOT VTI 0.191 m PV VTI 0.225 m RVOT Vmax 1.32 m/s Tricuspid Valve TR Peak Grad 18.0 mmHg TR Vmax 2.13 m/s RA Pressure 3.00 mmHg RVSP (TR) 21.1 mmHg
--- NOTE | 2021-03-04 08:11 | W.PM.PROGNOT ---
Date of Service Date of service: 03/04/21 Time of Service: 10:50 Assessment and Plan Assessment and plan (1) Hyperosmolar nonketotic coma in diabetes: Status: Acute Assessment and plan: BG better. Received 20 units lantus (normally on 40 units NPH at night at home). D/c insulin gtt. Continue IVF. Writing for SSI Q6Hrs and monitoring for whether the patient starts taking PO intake. (2) Sepsis: Status: Acute Assessment and plan: Due to CAP vs aspiration PNA. We need to consider meningitis as well as the patient is altered, is reporting headache/neck pain, has worsening leucocytosis/CRP, and has a positive blood culture (GPCs). Anesthesia is consulted for an LP. Change abx to vanco/high dose ceftriaxone. Continue IVF. Repeat blood cultures. Consider neuro consult. (3) CAP (community acquired pneumonia): Status: Acute Assessment and plan: vs aspiration PNA. As above Repeat CXR pending. (4) Alcohol withdrawal: Status: Ruled-out Assessment and plan: Patient's denies that the patient drinks and the patient herself denies this this morning. (5) Toxic metabolic encephalopathy: Status: Acute Assessment and plan: due to above. As above (6) Pseudohyponatremia: Status: Resolved Assessment and plan: Resolved with correction of glucose (7) Lactic acidosis: Status: Acute Assessment and plan: Improved. Due to dehydration/hyperglycemia. Continue IVF (8) Atrial flutter: Status: Acute Assessment and plan: New Dx. Rate controlled. Hydrate. Echo with LVEF of 60-65%, no valvular disease, presrved wall motion. EKG with ST this am. Given brown description of gastric contents, would not start on AC. (9) Gastroparesis: Status: Acute Assessment and plan: NGT pulled out by patient in the ED. Now that we know she has a h/o Tardive dyskinesia, I am discontinuing reglan. Gastric contents described as brown - ensure no GI bleeding. PPI. Heme test all stool. NPO for now. (10) Cholelithiasis: Status: Acute Assessment and plan: With stones in the gallbladder neck. No evidence of cholecystitis. Obtain US liver. Discussing with general surgery. (11) DVT prophylaxis: Status: Acute Assessment and plan: SCDs Chemical DVT ppx is contraindicated in setting of a possible GI bleed (12) Discharge planning issues: Status: Acute Assessment and plan: Full code Total Critical Care Time 45 minutes. Can likely transfer to medical surgical floor later this afternoon Subjective Subjective Interval history since last seen: This morning, Ms Irving knows her name, but not where she is or the date. She reports a headache, neck pain, shortness of breath, and R-sided chest pain, worse when she coughs. Also endorses nausea, but no vomiting. Coughing. Not requiring O2. VSS. Pulls on barba/IV. NGT came out in the ED. Has a sitter this am. This am she denies that she is a drinker. Her , who was able to be reached by nursing last night, also states that she is not a drinker and that she came from home rather than a substance abuse rehab. It is unclear why she said she drank and came from a rehab last night other than she was encephalopathic/confused. CIWA scores 8-9-12-12, but was scoring for disorientation/figdeting/tremors. says her tremors are due to tardive dyskenesia and are chronic. Insulin gtt d/c'ed this am. Received 20 units of lantus. Anesthesia is consulted for LP. I tried to contact and left a voicemail in an attempt to get consent. Exam Narrative Exam Narrative: General: Confused middle-aged female who is less tremulous today, but appears more confused, A&Ox1, requires repetition of question multiple times prior to sometimes answering. Mildly dyspneic. Restless. HEENT: EOMI, dry MM, Full ROM and neck is not rigid. Able to touch chin to chest. Cardiovascular: RRR, tachycardic Lungs: CTAB, mildly dyspneic. Gastrointestinal: soft, nontender, nondistended. Genitourinary: has a barba Extremities: no edema BLE's, skin dry, trace pedal pulses B. Objective Last Vital Signs Temp 36.3 C L 03/04/21 04:50 Pulse 113 H 03/04/21 06:02 Resp 26 H 03/04/21 06:02 BP 102/48 L 03/04/21 06:02 Pulse Ox 94 03/04/21 06:02 Laboratory Results - last 24 hr 03/03/21 03/03/2103/03/21 11:00 11:00 11:00 WBC 15.13 H RBC 5.42 H Hgb 15.9 H Hct 54.0 H MCV 99.6 H MCH 29.3 MCHC 29.4 L RDW 13.0 Plt Count 226 MPV 12.6 H Immature Gran % 0.5 Neutrophils % 87.7 Lymphocytes % 3.0 Monocytes % 8.5 Eosinophils % 0.1 Basophils % 0.2 Nucleated RBC % 0 Absolute Neutrophils 13.27 H Absolute Lymphocytes 0.45 L Absolute Monocytes 1.29 H Absolute Eosinophils 0.02 Absolute Basophils 0.03 RBC Morphology VBG pH VBG pCO2 VBG pO2 VBG HCO3 VBG Total CO2 VBG O2 Saturation VBG Base Excess VBG Lactate 6.3 H* Sodium Potassium Chloride Carbon Dioxide Anion Gap BUN Creatinine Estimated GFR/1.73 m2 Glucose Hemoglobin A1c Calcium Phosphorus Magnesium Total Bilirubin GGT AST ALT Alkaline Phosphatase Troponin I C-Reactive Protein Total Protein Albumin Triglycerides Total Cholesterol LDL Cholesterol Direct LDL Cholesterol, Calc HDL Cholesterol Amylase Lipase Urine Color Urine Clarity Urine pH Ur Specific [place] Urine Protein Urine Ketones Urine Blood Urine Nitrite Urine Bilirubin Urine Urobilinogen Ur Leukocyte Esterase Urine Glucose Urine Opiates Screen Urine Methadone Screen Ur Barbiturates Screen Valproic Acid Ur Tricyclics Screen Ur Amphetamines Screen U Benzodiazepines Scrn Urine Cocaine Screen Ur THC Screen Ethyl Alcohol COVID-19 Source Nasal/Nares SARS-CoV-2 (PCR) Negative 03/03/21 03/03/21 03/03/21 11:00 11:00 11:00 WBC RBC Hgb Hct MCV MCH MCHC RDW Plt Count MPV Immature Gran % Neutrophils % Lymphocytes % Monocytes % Eosinophils % Basophils % Nucleated RBC % Absolute Neutrophils Absolute Lymphocytes Absolute Monocytes Absolute Eosinophils Absolute Basophils RBC Morphology VBG pH VBG pCO2 VBG pO2 VBG HCO3 VBG Total CO2 VBG O2 Saturation VBG Base Excess VBG Lactate Sodium Potassium Chloride Carbon Dioxide Anion Gap BUN Creatinine Estimated GFR/1.73 m2 Glucose Hemoglobin A1c Calcium Phosphorus Magnesium 2.8 H Total Bilirubin GGT AST ALT Alkaline Phosphatase Troponin I C-Reactive Protein Total Protein Albumin Triglycerides Total Cholesterol LDL Cholesterol Direct LDL Cholesterol, Calc HDL Cholesterol Amylase Lipase Urine Color Yellow Urine Clarity Clear Urine pH 6.0 Ur Specific [place] <= 1.005 Urine Protein Negative Urine Ketones Negative Urine Blood Negative Urine Nitrite Negative Urine Bilirubin Negative Urine Urobilinogen 0.2 Ur Leukocyte Esterase Negative Urine Glucose 500 H Urine Opiates Screen Negative Urine Methadone Screen Negative Ur Barbiturates Screen Negative Valproic Acid Ur Tricyclics Screen Positive A Ur Amphetamines Screen Negative U Benzodiazepines Scrn Negative Urine Cocaine Screen Negative Ur THC Screen Negative Ethyl Alcohol COVID-19 Source SARS-CoV-2 (PCR) 03/03/21 03/03/21 03/03/21 11:50 11:50 11:50 WBC RBC Hgb Hct MCV MCH MCHC RDW Plt Count MPV Immature Gran % Neutrophils % Lymphocytes % Monocytes % Eosinophils % Basophils % Nucleated RBC % Absolute Neutrophils Absolute Lymphocytes Absolute Monocytes Absolute Eosinophils Absolute Basophils RBC Morphology VBG pH VBG pCO2 VBG pO2 VBG HCO3 VBG Total CO2 VBG O2 Saturation VBG Base Excess VBG Lactate Sodium Cancelled Potassium Cancelled Chloride Cancelled Carbon Dioxide Cancelled Anion Gap Cancelled BUN Cancelled Creatinine Cancelled Estimated GFR/1.73 m2 Cancelled Glucose Cancelled Hemoglobin A1c Calcium Cancelled Phosphorus Magnesium Total Bilirubin Cancelled GGT AST Cancelled ALT Cancelled Alkaline Phosphatase Cancelled Troponin I Cancelled C-Reactive Protein Total Protein Cancelled Albumin Cancelled Triglycerides Total Cholesterol LDL Cholesterol Direct LDL Cholesterol, Calc HDL Cholesterol Amylase Lipase Urine Color Urine Clarity Urine pH Ur Specific [place] Urine Protein Urine Ketones Urine Blood Urine Nitrite Urine Bilirubin Urine Urobilinogen Ur Leukocyte Esterase Urine Glucose Urine Opiates Screen Urine Methadone Screen Ur Barbiturates Screen Valproic Acid Ur Tricyclics Screen Ur Amphetamines Screen U Benzodiazepines Scrn Urine Cocaine Screen Ur THC Screen Ethyl Alcohol Cancelled COVID-19 Source SARS-CoV-2 (PCR) 03/03/21 03/03/21 03/03/21 11:50 11:50 11:50 WBC RBC Hgb Hct MCV MCH MCHC RDW Plt Count MPV Immature Gran % Neutrophils % Lymphocytes % Monocytes % Eosinophils % Basophils % Nucleated RBC % Absolute Neutrophils Absolute Lymphocytes Absolute Monocytes Absolute Eosinophils Absolute Basophils RBC Morphology VBG pH 7.32 VBG pCO2 48 VBG pO2 51 VBG HCO3 25 VBG Total CO2 22 L VBG O2 Saturation 82 VBG Base Excess -1 VBG Lactate Sodium Potassium Chloride Carbon Dioxide Anion Gap BUN Creatinine Estimated GFR/1.73 m2 Glucose Hemoglobin A1c Calcium Phosphorus Cancelled Magnesium Total Bilirubin GGT AST ALT Alkaline Phosphatase Troponin I C-Reactive Protein Total Protein Albumin Triglycerides Total Cholesterol LDL Cholesterol Direct LDL Cholesterol, Calc HDL Cholesterol Amylase Lipase Cancelled Urine Color Urine Clarity Urine pH Ur Specific [place] Urine Protein Urine Ketones Urine Blood Urine Nitrite Urine Bilirubin Urine Urobilinogen Ur Leukocyte Esterase Urine Glucose Urine Opiates Screen Urine Methadone Screen Ur Barbiturates Screen Valproic Acid Cancelled Ur Tricyclics Screen Ur Amphetamines Screen U Benzodiazepines Scrn Urine Cocaine Screen Ur THC Screen Ethyl Alcohol COVID-19 Source SARS-CoV-2 (PCR) 03/03/21 03/03/21 03/03/21 12:40 12:40 14:45 WBC RBC Hgb Hct MCV MCH MCHC RDW Plt Count MPV Immature Gran % Neutrophils % Lymphocytes % Monocytes % Eosinophils % Basophils % Nucleated RBC % Absolute Neutrophils Absolute Lymphocytes Absolute Monocytes Absolute Eosinophils Absolute Basophils RBC Morphology VBG pH VBG pCO2 VBG pO2 VBG HCO3 VBG Total CO2 VBG O2 Saturation VBG Base Excess VBG Lactate Sodium 116 L* Potassium 3.9 Chloride 78 L Carbon Dioxide 26.0 Anion Gap 12.0 H BUN 43 H Creatinine 2.6 H Estimated GFR/1.73 m2 18.78 Glucose 1689 H* 1433 H* Hemoglobin A1c Calcium 8.9 Phosphorus 3.8 Magnesium Total Bilirubin 0.5 GGT AST 9 L ALT 12 L Alkaline Phosphatase 141 H Troponin I < 0.05 C-Reactive Protein Total Protein 6.5 Albumin 3.1 L Triglycerides Total Cholesterol LDL Cholesterol Direct LDL Cholesterol, Calc HDL Cholesterol Amylase Lipase 88 Urine Color Urine Clarity Urine pH Ur Specific [place] Urine Protein Urine Ketones Urine Blood Urine Nitrite Urine Bilirubin Urine Urobilinogen Ur Leukocyte Esterase Urine Glucose Urine Opiates Screen Urine Methadone Screen Ur Barbiturates Screen Valproic Acid 16.8 Ur Tricyclics Screen Ur Amphetamines Screen U Benzodiazepines Scrn Urine Cocaine Screen Ur THC Screen Ethyl Alcohol < 3.0 COVID-19 Source SARS-CoV-2 (PCR) 03/03/21 03/03/21 03/03/21 15:09 15:49 15:49 WBC RBC Hgb Hct MCV MCH MCHC RDW Plt Count MPV Immature Gran % Neutrophils % Lymphocytes % Monocytes % Eosinophils % Basophils % Nucleated RBC % Absolute Neutrophils Absolute Lymphocytes Absolute Monocytes Absolute Eosinophils Absolute Basophils RBC Morphology VBG pH VBG pCO2 VBG pO2 VBG HCO3 VBG Total CO2 VBG O2 Saturation VBG Base Excess VBG Lactate 3.2 H* Sodium 124 L Potassium 3.4 L Chloride 86 L Carbon Dioxide 26.6 Anion Gap 11.4 H BUN 41 H Creatinine 2.2 H Estimated GFR/1.73 m2 22.77 Glucose 1527 H* Hemoglobin A1c Calcium 9.5 Phosphorus 3.8 Magnesium 2.9 H Total Bilirubin GGT AST ALT Alkaline Phosphatase Troponin I C-Reactive Protein Total Protein Albumin Triglycerides Total Cholesterol LDL Cholesterol Direct LDL Cholesterol, Calc HDL Cholesterol Amylase Lipase Urine Color Urine Clarity Urine pH Ur Specific [place] Urine Protein Urine Ketones Urine Blood Urine Nitrite Urine Bilirubin Urine Urobilinogen Ur Leukocyte Esterase Urine Glucose Urine Opiates Screen Urine Methadone Screen Ur Barbiturates Screen Valproic Acid Cancelled Ur Tricyclics Screen Ur Amphetamines Screen U Benzodiazepines Scrn Urine Cocaine Screen Ur THC Screen Ethyl Alcohol COVID-19 Source SARS-CoV-2 (PCR) 03/03/21 03/03/21 03/03/21 18:48 19:30 19:53 WBC RBC Hgb Hct MCV MCH MCHC RDW Plt Count MPV Immature Gran % Neutrophils % Lymphocytes % Monocytes % Eosinophils % Basophils % Nucleated RBC % Absolute Neutrophils Absolute Lymphocytes Absolute Monocytes Absolute Eosinophils Absolute Basophils RBC Morphology VBG pH VBG pCO2 VBG pO2 VBG HCO3 VBG Total CO2 VBG O2 Saturation VBG Base Excess VBG Lactate Sodium 136 D Potassium 3.4 L Chloride 97 L Carbon Dioxide 25.2 Anion Gap 13.8 H BUN 36 H Creatinine 2.1 H Estimated GFR/1.73 m2 24.02 Glucose 1158 H* D Cancelled 855 H* D Hemoglobin A1c Calcium 9.6 Phosphorus 4.0 Magnesium 2.7 H Total Bilirubin GGT 33 AST ALT Alkaline Phosphatase Troponin I C-Reactive Protein 14.03 H Total Protein Albumin Triglycerides Total Cholesterol LDL Cholesterol Direct LDL Cholesterol, Calc HDL Cholesterol Amylase Lipase Urine Color Urine Clarity Urine pH Ur Specific [place] Urine Protein Urine Ketones Urine Blood Urine Nitrite Urine Bilirubin Urine Urobilinogen Ur Leukocyte Esterase Urine Glucose Urine Opiates Screen Urine Methadone Screen Ur Barbiturates Screen Valproic Acid Ur Tricyclics Screen Ur Amphetamines Screen U Benzodiazepines Scrn Urine Cocaine Screen Ur THC Screen Ethyl Alcohol COVID-19 Source SARS-CoV-2 (PCR) 03/03/21 03/03/21 03/03/21 19:53 21:07 22:30 WBC RBC Hgb Hct MCV MCH MCHC RDW Plt Count MPV Immature Gran % Neutrophils % Lymphocytes % Monocytes % Eosinophils % Basophils % Nucleated RBC % Absolute Neutrophils Absolute Lymphocytes Absolute Monocytes Absolute Eosinophils Absolute Basophils RBC Morphology VBG pH VBG pCO2 VBG pO2 VBG HCO3 VBG Total CO2 VBG O2 Saturation VBG Base Excess VBG Lactate Sodium Potassium Chloride Carbon Dioxide Anion Gap BUN Creatinine Estimated GFR/1.73 m2 Glucose 776 H* 723 H* Hemoglobin A1c Calcium Phosphorus Magnesium Total Bilirubin GGT AST ALT Alkaline Phosphatase Troponin I < 0.05 C-Reactive Protein Total Protein Albumin Triglycerides Total Cholesterol LDL Cholesterol Direct LDL Cholesterol, Calc HDL Cholesterol Amylase Lipase Urine Color Urine Clarity Urine pH Ur Specific [place] Urine Protein Urine Ketones Urine Blood Urine Nitrite Urine Bilirubin Urine Urobilinogen Ur Leukocyte Esterase Urine Glucose Urine Opiates Screen Urine Methadone Screen Ur Barbiturates Screen Valproic Acid Ur Tricyclics Screen Ur Amphetamines Screen U Benzodiazepines Scrn Urine Cocaine Screen Ur THC Screen Ethyl Alcohol COVID-19 Source SARS-CoV-2 (PCR) 03/03/21 03/04/21 03/04/21 23:55 00:00 00:01 WBC RBC Hgb Hct MCV MCH MCHC RDW Plt Count MPV Immature Gran % Neutrophils % Lymphocytes % Monocytes % Eosinophils % Basophils % Nucleated RBC % Absolute Neutrophils Absolute Lymphocytes Absolute Monocytes Absolute Eosinophils Absolute Basophils RBC Morphology VBG pH VBG pCO2 VBG pO2 VBG HCO3 VBG Total CO2 VBG O2 Saturation VBG Base Excess VBG Lactate Sodium 137 Cancelled Potassium 4.5 D Cancelled Chloride 99 Cancelled Carbon Dioxide 27.6 Cancelled Anion Gap 10.4 Cancelled BUN 36 H Cancelled Creatinine 1.6 H Cancelled Estimated GFR/1.73 m2 32.88 Cancelled Glucose 625 H* 622 H* Cancelled Hemoglobin A1c Calcium 9.8 Cancelled Phosphorus Magnesium 2.8 H Total Bilirubin GGT AST ALT Alkaline Phosphatase Troponin I C-Reactive Protein Total Protein Albumin Triglycerides Total Cholesterol LDL Cholesterol Direct LDL Cholesterol, Calc HDL Cholesterol Amylase Lipase Urine Color Urine Clarity Urine pH Ur Specific [place] Urine Protein Urine Ketones Urine Blood Urine Nitrite Urine Bilirubin Urine Urobilinogen Ur Leukocyte Esterase Urine Glucose Urine Opiates Screen Urine Methadone Screen Ur Barbiturates Screen Valproic Acid Ur Tricyclics Screen Ur Amphetamines Screen U Benzodiazepines Scrn Urine Cocaine Screen Ur THC Screen Ethyl Alcohol COVID-19 Source SARS-CoV-2 (PCR) 03/04/21 03/04/21 03/04/21 01:00 02:15 03:20 WBC RBC Hgb Hct MCV MCH MCHC RDW Plt Count MPV Immature Gran % Neutrophils % Lymphocytes % Monocytes % Eosinophils % Basophils % Nucleated RBC % Absolute Neutrophils Absolute Lymphocytes Absolute Monocytes Absolute Eosinophils Absolute Basophils RBC Morphology VBG pH VBG pCO2 VBG pO2 VBG HCO3 VBG Total CO2 VBG O2 Saturation VBG Base Excess VBG Lactate Sodium Potassium Chloride Carbon Dioxide Anion Gap BUN Creatinine Estimated GFR/1.73 m2 Glucose 577 H* 561 H* 506 H* Hemoglobin A1c Calcium Phosphorus Magnesium Total Bilirubin GGT AST ALT Alkaline Phosphatase Troponin I C-Reactive Protein Total Protein Albumin Triglycerides Total Cholesterol LDL Cholesterol Direct LDL Cholesterol, Calc HDL Cholesterol Amylase Lipase Urine Color Urine Clarity Urine pH Ur Specific [place] Urine Protein Urine Ketones Urine Blood Urine Nitrite Urine Bilirubin Urine Urobilinogen Ur Leukocyte Esterase Urine Glucose Urine Opiates Screen Urine Methadone Screen Ur Barbiturates Screen Valproic Acid Ur Tricyclics Screen Ur Amphetamines Screen U Benzodiazepines Scrn Urine Cocaine Screen Ur THC Screen Ethyl Alcohol COVID-19 Source SARS-CoV-2 (PCR) 03/04/21 03/04/21 03/04/21 04:50 04:50 04:50 WBC RBC Hgb Hct MCV MCH MCHC RDW Plt Count MPV Immature Gran % Neutrophils % Lymphocytes % Monocytes % Eosinophils % Basophils % Nucleated RBC % Absolute Neutrophils Absolute Lymphocytes Absolute Monocytes Absolute Eosinophils Absolute Basophils RBC Morphology VBG pH VBG pCO2 VBG pO2 VBG HCO3 VBG Total CO2 VBG O2 Saturation VBG Base Excess VBG Lactate Sodium 142 Potassium 4.5 Chloride 106 Carbon Dioxide 25.7 Anion Gap 10.3 BUN 32 H Creatinine 1.3 H Estimated GFR/1.73 m2 41.78 Glucose 419 H Hemoglobin A1c 11.8 H Calcium 9.2 Phosphorus Magnesium 2.5 H Total Bilirubin GGT AST ALT Alkaline Phosphatase Troponin I C-Reactive Protein 19.90 H Total Protein Albumin Triglycerides 418 H Total Cholesterol 230 H LDL Cholesterol Direct 101 H LDL Cholesterol, Calc TNP HDL Cholesterol 35 L Amylase 30 Lipase Urine Color Urine Clarity Urine pH Ur Specific [place] Urine Protein Urine Ketones Urine Blood Urine Nitrite Urine Bilirubin Urine Urobilinogen Ur Leukocyte Esterase Urine Glucose Urine Opiates Screen Urine Methadone Screen Ur Barbiturates Screen Valproic Acid Ur Tricyclics Screen Ur Amphetamines Screen U Benzodiazepines Scrn Urine Cocaine Screen Ur THC Screen Ethyl Alcohol COVID-19 Source SARS-CoV-2 (PCR) 03/04/21 03/04/21 04:50 04:50 WBC 18.28 H RBC 5.31 H Hgb 15.5 Hct 44.2 MCV 83.2 D MCH 29.2 MCHC 35.1 RDW 12.5 Plt Count 188 MPV 12.5 H Immature Gran % 0.0 Neutrophils % 74.0 Lymphocytes % 11.0 Monocytes % 15.0 Eosinophils % 0.0 Basophils % 0.0 Nucleated RBC % 0 Absolute Neutrophils 13.53 H Absolute Lymphocytes 2.01 Absolute Monocytes 2.74 H Absolute Eosinophils 0.00 Absolute Basophils 0.00 RBC Morphology Normal VBG pH VBG pCO2 VBG pO2 VBG HCO3 VBG Total CO2 VBG O2 Saturation VBG Base Excess VBG Lactate Sodium 142 Potassium 4.5 Chloride 106 Carbon Dioxide 26.6 Anion Gap 9.4 BUN 32 H Creatinine 1.3 H Estimated GFR/1.73 m2 41.78 Glucose 421 H Hemoglobin A1c Calcium 9.1 Phosphorus Magnesium Total Bilirubin GGT AST ALT Alkaline Phosphatase Troponin I C-Reactive Protein Total Protein Albumin Triglycerides Total Cholesterol LDL Cholesterol Direct LDL Cholesterol, Calc HDL Cholesterol Amylase Lipase Urine Color Urine Clarity Urine pH Ur Specific [place] Urine Protein Urine Ketones Urine Blood Urine Nitrite Urine Bilirubin Urine Urobilinogen Ur Leukocyte Esterase Urine Glucose Urine Opiates Screen Urine Methadone Screen Ur Barbiturates Screen Valproic Acid Ur Tricyclics Screen Ur Amphetamines Screen U Benzodiazepines Scrn Urine Cocaine Screen Ur THC Screen Ethyl Alcohol COVID-19 Source SARS-CoV-2 (PCR)
--- NOTE | 2021-03-04 08:15 | RT.EKG_ITS ---
APPROVED REPORT Exam: Resting ECG Reason for Exam: ?a flutter vs sinus rhythm Patient Location: I HR:106 bpm ECG Measurements Heart Rate 106 AXIS AL 135 P 69 QRSd 69 QRS 79 QT 338 T 226 QTc 448 Conclusion Sinus tachycardia...rate> 99 Abnormal T, consider ischemia, diffuse leads...T <-0.20mV, ant/lat/inf
[2021-03-04] MEDS: Insulin Glargine 300 UNITS/3 ML PEN 20 UNITS SC ×2 (08:56→22:07)
[2021-03-04] MEDS: VANCOMYCIN/WATER (PEG) 1.25 GM/250 ML BAG IVPB (08:58)
[2021-03-04 09:03] LABS: Lactate 2.2 mmol/L (0.6-1.4)
--- NOTE | 2021-03-04 09:31 | PDOC.CMIN ---
- If Service Date Differs Date of service: 03/04/21 Time of Service: 09:31 Care Management Initial Assess REASON FOR HOSPITALIZATION:: HHNK, Toxic Metabolic Encephalopathy. PAST MEDICAL HISTORY/PAST SURGICAL HISTORY:: Medical History: Anxiety, Bipolar 1 disorder, Depression,. Diabetes, and History of pilonidal cyst. Surgical History: History of section, History of hysterectomy, and. History of tonsillectomy. PREVIOUS FUNCTIONAL STATUS/SOCIAL/FAMILY SUPPORTS:: Jennifer lives in [facility] with her , Campos. The couple have two sons: Geronimo and Celso. 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 She now cares for her who is disabled. She enjoys watching television, playing games on the computer, reading, and crocheting. Their son Celso lives locally and is supportive of the couple. CURRENT FUNCTIONAL STATUS:: Jennifer is lying in bed when CM comes to meet with her. She remains confused and she does not engage with CM. Her , Campos, is present and he provides all of the information for this assessment. ADVANCE DIRECTIVES:: None on file; , Campos, accepts an Advance Directives form for completion at a later time. Has patient been provided with info about the portal/API?: No Did the patient sign up for the portal?: No CODE STATUS:: Full Code INSURANCE COVERAGE / FINANCIAL ISSUES:: Medicaid. CURRENT HOME/COMMUNITY SERVICES/EQUIPMENT:: No in-home services or equipment. Jennifer sees Symone Lares aprn, at the [facility] for management of her psychiatric medications. PRIMARY CARE PHYSICIAN:: MAIDA Whyte ([facility]). POTENTIAL DISCHARGE NEEDS:: Follow up appointments with PCP and breastfeeding educator. PATIENT/FAMILY EDUCATION NEEDS:: Review discharge instructions regarding medications and activity levels, discussion of self care needs including Ask Me Three. ANTICIPATED BARRIERS TO DISCHARGE:: No anticipated barriers at this time. TRANSPORTATION:: Her will drive her home via private vehicle. PLAN:: Anticipate Jennifer will be discharged home when medically cleared by provider. She will follow up with her PCP and discharge plan of care as directed. Her will drive her home via private vehicle when ready. CM will continue to support Jennifer, her family, and any discharge planning needs.
[2021-03-04 09:35] LABS: Procalcitonin 0.3 ng/mL
[2021-03-04] MEDS: Lactated Ringers 1,000 ML 125 ML IV ×2 (10:24→18:27)
--- NOTE | 2021-03-04 10:54 | NT_ITS ---
Date of service: 03/04/21 Time of Service: 10:54 PT Notes Visit Reasons: HHNK,Toxic Metabolic Encephalopathy Dr. Damon recommended seeing patient tomorrow as patient will have several testing procedures and will be more ready for mobility assessment tomorrow. Will plan on seeing patient tomorrow morning, as ordered. Thank you for the opportunity to participate in the care of this patient. Sangita Luz PT, DPT, CLT [facility] [place], [place]
--- NOTE | 2021-03-04 11:06 | NUR.NOTE ---
Addendum entered by Marybeth Mae 03/04/21 11:48: patient is reaching to the left side of her bed yelling for Campos and asking can you help me? can you push me up? Campos patient doesn't respond to me when i ask if i can help her she just looks at me Original Note: Nursing Note: patient keeps reaching to the left side of the bed saying Campos patient also keeps asking can you help me? patient doesn't reply when you ask what she needs help with. patient is very restless.
--- NOTE | 2021-03-04 12:45 | ANES.PROC_ITS ---
Lumbar Puncture Date Performed: 03/04/21 Procedure Time: 12:25 Requesting Provider: Erin Damon Procedure Location: Intensive Care Unit Standard Monitors Applied: ECG, Blood Pressure, SpO2 and See EMR for corresponding vital signs Patient Position: Left Lateral Decubitus Timeout Performed: Yes Sedation Given (Indicate Dose Given): No Sedation given Patient Mental Status: Awake Sterility: Hand Hygiene, Surgical Cap, Surgical Mask, Sterile Gloves and Chlorhexidine Placement Site: L4-L5 Interspace Spinal Needle Type: Mediastaycke 22 Gauge Needle Length: 3.5 Inch Lumbar Puncture Procedure: Site Prepped, Sterile Drape Placed, 1% Lidocaine to skin and subcutaneous tissue with 25G needle, Spinal Needle Placed, Negative Heme, Positive CSF Flow, CSF Specimen placed into Tubes in Sequential Order and Specimen Labeled, Sent to Lab Ultrasound: Not Used Paresthesia: None Number of Previous Attempts by Other Providers: 0 Number of Attempts (See previous attempts in note section): 1 Procedure Tolerated: No Complications and Patient tolerated well Procedure Outcome: Successful Procedure Comment:: No opening pressures desired Performed By: Wang Bhakta
--- NOTE | 2021-03-04 13:32 | NUR.NOTE ---
has arrived and education diagnostician paged. Layer Out Plate Glass currently in room. Nursing Note:
[2021-03-04 13:33] LABS: Glucose (CSF) 272 mg/dL (40-70); Total Protein (CSF) 69 mg/dL (15-45)
[2021-03-04] MEDS: cefTRIAXone 2 GM/50 ML BAG IVPB ×2 (13:34→23:51)
[2021-03-04] MEDS: Normal Saline 500 ML 30 ML IV (13:34)
[2021-03-04] MEDS: Insulin Aspart 300 UNITS/3 ML PEN SC ×3 (13:35→23:50)
[2021-03-04 13:36] LABS: Clarity Clear; RBC 10 /mm3 (0-5); Tube # 4; WBC 0 /uL (0-5); Xanthochromia Absent
[2021-03-04] MEDS: Acetaminophen 650 MG SUPP PR (13:38)
[2021-03-04 13:39] LABS: RBC Tube#1 CSF 1400 /mm3 (0-5)
--- NOTE | 2021-03-04 14:18 | NUR.NOTE ---
This telegraphic typewriter operator got patients gold ring with red stone off of finger as fingers are swollen. Taken off by using floss technique. Ring was given to antonio. RN notified Nursing Note:
[2021-03-04] MEDS: LORazepam 2 MG/ML VIAL 0.5 MG IVP (14:46)
[2021-03-04] MEDS: DOXYCYCLINE 100 MG in Normal Saline 100 ML IVPB (16:30)
--- NOTE | 2021-03-04 17:03 | CHAPLAIN ---
Jennifer was restless in bed, fidgeting and occasional yelling at staff to get out of her room. Her , Campos, was with her. He remembers being a patient in the same room two years ago and remembered me and ERI Baldwin. He said that Jennifer didn't eat much last week because she wasn't hungry, and then began to feel worse and be confused over the weekend and he brought her to the ED yesterday. He is worried about her. She answer correctly when asked her name, but doesn't not know where she is or what day it is. Campos continues to talk with her and encourage her to follow nurses' requests. I will continue to visit when Campos is here.
[2021-03-04] MEDS: Sertraline 50 MG TAB (20:53)
[2021-03-04] MEDS: Divalproex 500 MG TABEC (20:53)
[2021-03-04] MEDS: OLANZapine 10 MG TAB PO (21:17)
[2021-03-04] MEDS: VANCOMYCIN 750 MG in Normal Saline 250 ML 250 MG IVPB (21:55)
[2021-03-05] VITALS (20 sets, daily range): BP systolic 142–177; BP diastolic 66–86; PULSE 0–109; RESP 12–28; TEMP 36–37.2; O2SAT 93–98
[2021-03-05] MEDS: Lactated Ringers 1,000 ML 125 ML IV ×2 (02:07→16:03)
[2021-03-05] MEDS: Pantoprazole 40 MG VIAL IVP (04:18)
[2021-03-05] MEDS: DOXYCYCLINE 100 MG in Normal Saline 100 ML IVPB ×2 (04:18→16:02)
[2021-03-05] MEDS: Normal Saline Flush 10 ML SYR IVP (04:19)
[2021-03-05] MEDS: Insulin Aspart 300 UNITS/3 ML PEN SC ×3 (05:20→22:13)
[2021-03-05 07:18] LABS: Abs Immature Grans 0.16 10^3/uL (0.0-0.06); Absolute Basophil Count 0.03 10^3/uL (0.0-0.2); Basophils % 0.2; Eosinophils % 1.5; HCT 42.4 % (36.0-46.0); HGB 14.3 g/dL (11.2-15.7); Immature Grans % 1.2; Lymphocytes % 16.4; MCH 29.3 pg (27.0-33.0); MCHC 33.7 % (32.0-36.0); MCV 86.9 fL (80-95); MPV 12.3 fL (8.0-11.0); Monocytes % 6.2; Neutrophils % 74.5; Nucleated RBC 0 %; Platelet Count 142 10^3/uL (130-400); RBC 4.88 10^6/uL (3.93-5.22); RDW 12.9 % (11.7-14.6); RDW-SD 40.9 fL; WBC 12.95 10^3/uL (4.4-10.8)
[2021-03-05 07:21] LABS: Absolute Eosinophil Count 0.19 10^3/uL (0.0-0.7); Absolute Lymphocyte Count 2.12 10^3/uL (1.2-3.4); Absolute Neutrophil Count 9.65 10^3/uL (1.2-6.7)
[2021-03-05 07:32] LABS: Anion Gap 8.4 mmol/L (3-11); BUN 13 mg/dL (7-18); C-Reactive Protein 12.47 mg/dL (0.0-0.3); CO2 28.6 mmol/L (21.0-32.0); CREATININE 0.7 mg/dL (0.55-1.02); Calcium 9.4 mg/dL (8.5-10.1); Chloride 109 mmol/L (98-107); Glucose 127 mg/dL (74-106); Magnesium 2.1 mg/dL (1.8-2.4); Potassium 3.7 mmol/L (3.5-5.1); Sodium 146 mmol/L (136-145)
--- NOTE | 2021-03-05 08:16 | W.PM.PROGNOT ---
Date of Service Date of service: 03/05/21 Time of Service: 10:33 Assessment and Plan Assessment and plan (1) Hyperosmolar nonketotic coma in diabetes: Status: Resolved Assessment and plan: The patient has been transitioned to basal bolus insulin. Will permit a diet as she does not seem to have any more nausea. Will adjust insulins accordingly. FBG 127 this am, which is reasonable. Transfer out of ICU. (2) Sepsis: Status: Acute Assessment and plan: Due to CAP vs aspiration PNA. Meningitis ruled out. Original blood cx 1 (03/03/21) with Staph Sp, not aureus. Repeat blood cx are pending. Original blood cx may have been a contaminant. The patient's clinically better, and her WBC and CRP have decreased. Continue IVF, vancomycin, decrease ceftriaxone dose to 2 grams daily. Ok to transfer out of ICU. (3) CAP (community acquired pneumonia): Status: Acute Assessment and plan: vs aspiration PNA. As above Will also add incentive spirometry as there is evidence of atelectasis. (4) Toxic metabolic encephalopathy: Status: Acute Assessment and plan: due to above. As above (5) Atrial flutter: Status: Acute Assessment and plan: New Dx. Was rate controlled. Appears to have converted to NSR. Continue IVF. Echo with LVEF of 60-65%, no valvular disease, preserved wall motion. Given brown description of gastric contents, would not start on AC. (6) Lactic acidosis: Status: Acute Assessment and plan: Improved. Due to dehydration/hyperglycemia. Continue IVF. (7) Gastroparesis: Status: Acute Assessment and plan: NGT pulled out by patient in the ED. h/o Tardive dyskinesia - not a candidate for reglan. Gastric contents described as brown - ensure no GI bleeding. Await hematest. Continue PPI. Needs a GES later on this admission. (8) Pseudohyponatremia: Status: Resolved Assessment and plan: Resolved with correction of glucose (9) Cholelithiasis: Status: Acute Assessment and plan: With stones in the gallbladder neck. No evidence of cholecystitis. Not a source of infection. (10) Alcohol withdrawal: Status: Ruled-out Assessment and plan: Patient's denies that the patient drinks and the patient herself denies this this morning. (11) DVT prophylaxis: Status: Acute Assessment and plan: SCDs Chemical DVT ppx is contraindicated in setting of a possible GI bleed (12) Discharge planning issues: Status: Acute Assessment and plan: Full code Transfer out of the ICU. Subjective Subjective Interval history since last seen: Ms Irving denies chest pain, shortness of breath, nausea this morning. She does have a cough. She has been pulling on her Barba and has pulled out multiple IVs. Restless, playing with feces overnight. On room air. A&Ox1 this am. Follows directions briefly, but then easily distracted. How oriented she is has been waxing and waning. Exam Narrative Exam Narrative: General: Middle-aged female who is not tremulous or dyspneic this morning, coughs occasionally, A&Ox1, repeats answer to prior question when answering the next one. HEENT: EOMI, dry MM Cardiovascular: RRR, no m/r/g Lungs: Rhonchi R lung field anteriorly (patient is getting an IV started at time of my visit and is laying on her back). Clear over the L lung field. No dyspnea today. Gastrointestinal: soft, nontender, nondistended. Genitourinary: has a barba Extremities: no edema BLE's, skin dry, trace pedal pulses B. Objective Last Vital Signs Temp 37.2 C 03/05/21 04:21 Pulse 97 H 03/05/21 04:21 Resp 20 03/05/21 04:21 BP 142/86 H 03/05/21 04:21 Pulse Ox 94 03/05/21 04:21 Laboratory Results - last 24 hr 03/04/21 03/04/21 03/04/21 08:50 08:50 12:37 WBC RBC Hgb Hct MCV MCH MCHC RDW Plt Count MPV Immature Gran % Neutrophils % Lymphocytes % Monocytes % Eosinophils % Basophils % Nucleated RBC % Absolute Neutrophils Absolute Lymphocytes Absolute Monocytes Absolute Eosinophils Absolute Basophils Xanthochromia VBG Lactate 2.2 H* Sodium Potassium Chloride Carbon Dioxide Anion Gap BUN Creatinine Estimated GFR/1.73 m2 Glucose Calcium Magnesium C-Reactive Protein Procalcitonin 0.3 CSF Tube Number CSF Color CSF Clarity CSF WBC CSF RBC CSF RBC (1) CSF Diff Comment CSF Glucose 272 H CSF Total Protein 69 H 03/04/21 03/05/21 03/05/21 12:37 06:29 06:29 WBC 12.95 H RBC 4.88 Hgb 14.3 Hct 42.4 MCV 86.9 MCH 29.3 MCHC 33.7 RDW 12.9 Plt Count 142 MPV 12.3 H Immature Gran % 1.2 Neutrophils % 74.5 Lymphocytes % 16.4 Monocytes % 6.2 Eosinophils % 1.5 Basophils % 0.2 Nucleated RBC % 0 Absolute Neutrophils 9.65 H Absolute Lymphocytes 2.12 Absolute Monocytes 0.80 Absolute Eosinophils 0.19 Absolute Basophils 0.03 Xanthochromia Absent VBG Lactate Sodium 146 H Potassium 3.7 Chloride 109 H Carbon Dioxide 28.6 Anion Gap 8.4 BUN 13 D Creatinine 0.7 D Estimated GFR/1.73 m2 >= 60.00 Glucose 127 H D Calcium 9.4 Magnesium 2.1 C-Reactive Protein 12.47 H Procalcitonin CSF Tube Number 4 CSF Color Colorless CSF Clarity Clear CSF WBC 0 CSF RBC 10 H CSF RBC (1) 1400 H CSF Diff Comment CSF Glucose CSF Total Protein US abdomen: Tiny stones and sludge. No evidence of acute cholecystitis. CXR: Bibasilar infiltrates and atelectasis Echo: Normal left ventricular wall thickness and chamber size. Estimated ejection fraction is 60 to 65%. There are no segmental wall motion abnormalities Normal right ventricular size and systolic function Both atria are normal in size There are no structural or hemodynamically significant valvular abnormalities Normal estimated right ventricular systolic pressure 21 mmHg
--- NOTE | 2021-03-05 09:20 | NUR.NOTE ---
0900 pt pulled out iv frmo r arm. to be restarted.
[2021-03-05] MEDS: Divalproex Sodium 500 MG TAB.ER.24H PO ×2 (09:21→20:15)
[2021-03-05] MEDS: Sertraline 50 MG TAB PO (09:21)
--- NOTE | 2021-03-05 09:47 | PT.INIE ---
Date of service: 03/05/21 Time of Service: 09:47 PT Notes Visit Reasons: HHNK,Toxic Metabolic Encephalopathy Physical Therapy Inpatient Initial Evaluation Date: 03/05/2021 Referring Doctor: Erin Damon MD PT Orders: PT CONSULT: Limited ability Precautions: Fall. Standard. Activity as tolerated. Patient Profile/Admitting Diagnosis: Jennifer is a 60-year-old female who presented to the ED on 03/03/2021 with intermittent vomiting, generalized weakness, and increasing confusion. Patient is diagnosed with sepsis status post lumbar tap today, community-acquired pneumonia, hyperosmolar nonketotic diabetic coma, EtOH withdrawal, toxic metabolic encephalopathy pseudohyponatremia, lactic acidosis, atrial fibrillation, gastroparesis, and cholelithiasis. PMHX: Medical History (Updated 03/03/21 @ 18:11 by Erin Damon MD) Alcohol abuse Anxiety Bipolar 1 disorder Depression Diabetes History of pilonidal cyst Surgical History History of section History of hysterectomy History of tonsillectomy Social History/Home Situation: Lives with son and daughter. Residual altered mental status limits ability to respond to questions at this time. 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 Equipment Owned/DME: None Subjective: Agreeable to PT consult. Complaints of fatigue. Reports minimal pain in the anterior right thigh. Her L knee patient does not want use of front wheeled walker but was finally agreeable when her instability was pointed out. Objective: General Observation: Appears lethargic and fatigued. Mcrae catheter in place. Mental Status: Lethargic. Requires moderate verbal cueing and redirection to complete tasks. Disorganized thought. Pain: Did report pain in anterior right thigh but did not limit ambulation distance. ROM: Right Upper Extremity: Shoulder Flexion WFL. Shoulder abduction WFL. Elbow flexion WFL. Wrist flexion WFL. Functional opening and closing of hand WFL. Left Upper Extremity: Shoulder Flexion WFL. Shoulder abduction WFL. Elbow flexion WFL. Wrist flexion WFL. Functional opening and closing of hand WFL. Right Lower Extremity: Hip flexion WFL. Hip abduction WFL. Knee flexion WFL. Ankle dorsiflexion WFL. Ankle plantarflexion WFL. Left Lower Extremity: Hip flexion WFL. Hip abduction WFL. Knee flexion WFL. Ankle dorsiflexion WFL. Ankle plantarflexion WFL. Strength: Right Upper Extremity: Shoulder flexors 4-/5. Shoulder abductors 4-/5. Elbow flexors 4-/5. Elbow extensors 4-/5. Soil Scientist strong. Left Upper Extremity: Shoulder flexors 4-/5. Shoulder abductors 4-/5. Elbow flexors 4-/5. Elbow extensors 4-/5. Soil Scientist strong. Right Lower Extremity: Hip flexors 3+/5. Hip abductors 3+/5. Knee flexors 3+/5. Knee extensors 3+/5. Ankle dorsiflexors 4-/5. Ankle plantarflexors 4-/5. Left Lower Extremity: Hip flexors 3+/5. Hip abductors 3+/5. Knee flexors 3+/5. Knee extensors 3+/5. Ankle dorsiflexors 4-/5. Ankle plantarflexors 4-/5. Bed Mobility/Transfers: Rolling minimal assist Supine to sit minimal assist Sit to supine minimal assist Sit to stand contact-guard assist Stand to sit contact-guard assist Bed to bedside commode contact-guard assist with front wheel walker Bedside commode to bed contact-guard assist with front wheel walker Bed to reclining chair contact-guard assist with front wheel walker Reclining chair to bed contact-guard assist with front wheeled walker Gait: Instructed patient with level surface ambulation of 75 feet requiring minimal assist assist. Christine decreased. Tendency to push back. Fatigue after ambulation activity. Requires moderate to maximal verbal cueing for walker management. Moderate path deviation. Poor obstacle negotiation. Balance: Static Sitting: Good Dynamic Sitting: Good Static Standing: Fair Dynamic Standing: Poor Special Tests: Mobility Limitations Standardized Measure [facility] AM-PAC 6 clicks Basic Mobility Inpatient Short Form: Raw Score: 18 CMS Score: 47% deficit Informed Consent/Education: Patient was instructed in purpose of PT consult and plan of care. Agreeable to proceed with established PT POC to achieve personal goals. Assessment: Jennifer demonstrates significant functional mobility decline requiring the use of front wheeled walker and assistance of 1 person to reduce fall risk and to safely perform mobility ADLs. Patient presents with clinical signs and symptoms consistent with current/admitting diagnoses that have resulted to mobility limitations, gait instability, generalized weakness, and overall ADL decline as demonstrated by the following impairment level findings: 1. Decreased strength to BUE/LE major muscle groups 2. Impaired sitting/standing balance 3. Impaired activity tolerance 5. Mild path deviation 6. Fatigue 7. Impaired environmental awareness resulting to poor goal negotiation skills Impairments are contributing to the following functional limitations: 1. Decline in bed mobility skills 2. Decline in transfer skills 3. Difficulty with ambulation without assistive device and physical assistance 4. Increased completion time for mobility ADL performance 5. Increased risk for falls 6. Difficulty with managing steps alone safely Patient is assessed as a 02106 moderate complexity based on the following: History: 60-year-old female with past medical history as indicated above Examination: Demonstrable impairment in strength, balance, and mobility level with underlying impairments and functional limitations as exhibited above as well as deficit score of 47% utilizing the [facility] Mobility Inpatient Short Form Presentation: Evolving Decision Makin moderate complexity Goals: Goals X1 week 1. Supine-Sit independent 2. Sit-Supine independent 3. Sit-Stand independent 4. Stand-Sit independent with no assistive device 5. Bed-Chair independent with no assistive device 6. Chair-Bed independent with no assistive device 7. Independent gait on level surface with use of no assistive device for at least 300 feet without report of pain nor dyspnea 8. Independent stair negotiation while holding onto B rails for at least 5 steps without report of pain nor dyspnea 9. Independent with home exercise program 10. Good static and dynamic standing balance/tolerance Plan of Care/Treatment Plan: 1-2x/day, 7 days/week x 1 week. Plan of care has been reviewed with the ALLIGATOR HUNTER providing the service under Physical Therapy direction. Initiate Physical Therapy intervention for pain management as needed, strengthening, bed mobility, transfers, gait, stairs, balance training, and use of assistive device. DISCHARGE RECOMMENDATIONS: Patient will benefit from home health PT services in order to progress mobility level using least restrictive assistive ambulatory device, assess home safety, identify additional equipment needs, and establish a functional maintenance program that will increase ability of patient to remain at home. TREATMENT CODE/TIME: 34439 x 25 minutes beginning at 9:47 AM. Thank you for the opportunity to participate in the care of this patient. Sangita Luz PT, DPT, CLT [facility] [place], [place]
[2021-03-05] MEDS: Insulin Glargine 300 UNITS/3 ML PEN 20 UNITS SC ×2 (09:49→20:17)
--- NOTE | 2021-03-05 10:33 | CMPROGNOTE_ITS ---
- If Service Date Differs Date of service: 03/05/21 Time of Service: 10:33 Care Management Progress Note S/O: Jennifer is lying in bed when CM comes to meet with her. Her , Campos, is present in the room. Jennifer is more alert today and is able to engage with CM. She signs a HIPAA form allowing [facility] staff to give information to her two sons (Geronimo and Carlton) with respect to her progress. Campos states she is getting better every day and he hopes she will be able to return home by the end of the week. He expresses frustration that Jennifer is not getting more stimulation and requests that the television be turned on for her every day. After speaking with nursing staff, CM advises him that the remote to the television is missing and advises him to feel free to turn the television on manually at any time. A: Jennifer is a 60 year old female admitted to [facility] on 03/03/2021 for HHNK and Toxic Metabolic Encephalopathy. P: Jennifer will likely be discharged home when medically cleared by provider. She will follow up with her PCP, psych med provider, and plan of care as directed. Her will drive her home via private vehicle when ready. CM will continue to follow.
[2021-03-05] MEDS: VANCOMYCIN/WATER (PEG) 1 GM/200 ML BAG IVPB ×2 (11:49→22:13)
[2021-03-05] MEDS: cefTRIAXone 2 GM/50 ML BAG IVPB (13:31)
[2021-03-05] MEDS: Pantoprazole 40 MG TABCR PO (20:15)
[2021-03-05] MEDS: OLANZapine 10 MG TAB PO (22:13)
[2021-03-06] VITALS (11 sets, daily range): BP systolic 115–174; BP diastolic 61–85; PULSE 68–100; RESP 16–20; TEMP 36.3–36.8; O2SAT 93–97
[2021-03-06] MEDS: Lactated Ringers 1,000 ML 125 ML IV ×3 (01:54→21:16)
[2021-03-06] MEDS: DOXYCYCLINE 100 MG in Normal Saline 100 ML IVPB ×2 (04:07→16:31)
[2021-03-06] MEDS: Normal Saline 500 ML 100 ML IV (04:08)
[2021-03-06] MEDS: Normal Saline Flush 10 ML SYR IVP ×2 (04:17→16:32)
[2021-03-06 07:31] LABS: Abs Immature Grans 0.12 10^3/uL (0.0-0.06); Absolute Basophil Count 0.03 10^3/uL (0.0-0.2); Absolute Eosinophil Count 0.25 10^3/uL (0.0-0.7); Absolute Lymphocyte Count 2.97 10^3/uL (1.2-3.4); Absolute Monocyte Count 0.91 10^3/uL (0.1-0.8); Basophils % 0.3; Eosinophils % 2.2; HCT 40.1 % (36.0-46.0); HGB 13.3 g/dL (11.2-15.7); Lymphocytes % 25.8; MCH 29.3 pg (27.0-33.0); MCHC 33.2 % (32.0-36.0); MCV 88.3 fL (80-95); MPV 12.1 fL (8.0-11.0); Monocytes % 7.9; Neutrophils % 62.8; Nucleated RBC 0 %; Platelet Count 154 10^3/uL (130-400); RBC 4.54 10^6/uL (3.93-5.22); RDW-SD 42.5 fL; WBC 11.53 10^3/uL (4.4-10.8)
[2021-03-06 07:35] LABS: Absolute Neutrophil Count 7.24 10^3/uL (1.2-6.7)
[2021-03-06 07:44] LABS: Anion Gap 8.5 mmol/L (3-11); BUN 14 mg/dL (7-18); C-Reactive Protein 4.98 mg/dL (0.0-0.3); CO2 27.5 mmol/L (21.0-32.0); CREATININE 0.5 mg/dL (0.55-1.02); Calcium 8.8 mg/dL (8.5-10.1); Chloride 109 mmol/L (98-107); Glucose 74 mg/dL (74-106); Magnesium 1.9 mg/dL (1.8-2.4); Potassium 3.6 mmol/L (3.5-5.1); Sodium 145 mmol/L (136-145)
[2021-03-06] MEDS: Pantoprazole 40 MG TABCR PO ×2 (09:31→19:42)
[2021-03-06] MEDS: Sertraline 50 MG TAB PO (09:31)
[2021-03-06] MEDS: Divalproex Sodium 500 MG TAB.ER.24H PO ×2 (09:32→19:41)
[2021-03-06] MEDS: VANCOMYCIN/WATER (PEG) 1 GM/200 ML BAG IVPB ×2 (09:32→19:41)
[2021-03-06] MEDS: Insulin Aspart 300 UNITS/3 ML PEN SC ×4 (09:32→21:16)
--- NOTE | 2021-03-06 11:46 | PT.INTREAT ---
Date of service: 03/06/21 Time of Service: 09:38 PT Notes Visit Reasons: HHNK,Toxic Metabolic Encephalopathy Inpatient Physical Therapy Treatment Note [facility] Date: 03/06/2021 PRECAUTIONS: Fall, activity as tolerated SUBJECTIVE: Jennifer is agreeable to participating in PT. She states that she is feeling better today. She is willing to try to walk without an assistive device. She asks can you find out if my called the doctor. OBJECTIVE: Patient engages minimally and demonstrates a flat affect. PAIN: No c/o pain BED MOBILITY/TRANSFERS Rolling L/R: [] Supine-sit: Sit-supine: I with HOB flat Sit-stand: S in a.m.; I in p.m. Stand-sit: S in a.m.; I in p.m. Bed-Chair: SBA in a.m.; S in p.m. Chair-bed: SBA in a.m.; S in p.m. GAIT: Patient refused further gait training in p.m. due to increased fatigue. Assistive Device: FWW No AD IV pole in a.m.; No AD in p.m. Weight bearing: Full Assist: SBA with FWW CGA without AD CGA-SBA with IV pole in a.m.; S in p.m. Distance: 250' with FWW 50' without AD 150' with IV pole in a.m.; 10' + 20' in p.m. Deviation: Slow pacing, no reciprocal arm swing noted, c/o SOB (which patient notes is her baseline) THEREX: Refused in p.m. TOILEITNG: Patient toileted with supervision for transfers in a.m.; patient toileted independently in p.m. ASSESSMENT: Patient tolerated session with c/o SOB with gait training. She demonstrates improved mobility, participating in gait training without use of assistive device without LOB. PLAN: Continue with gait training with least restrictive device and general conditioning for improved mobility and activity tolerance. TREATMENT CODE/TIME: Session 1: 21 minutes; [id number] (09:38) Session 2: 9 minutes; 00698 (12:44)
[2021-03-06] MEDS: cefTRIAXone 2 GM/50 ML BAG IVPB (12:21)
--- NOTE | 2021-03-06 14:20 | W.PM.PROGNOT ---
Date of Service Date of service: 03/06/21 Time of Service: 14:20 Assessment and Plan Assessment and plan (1) Hyperosmolar nonketotic coma in diabetes: Status: Resolved Assessment and plan: Continue basal bolus insulin, decreasing basal dose today. Monitor BG with advancement of diet. (2) Sepsis: Status: Acute Assessment and plan: Due to CAP vs aspiration PNA. Meningitis ruled out. Original blood cx 1 bottle/4 (03/03/21) with Staph Sp, not aureus - contaminant. Repeat blood cx w/NGTD. Continue IVF, ceftriaxone dose to 2 grams daily. Continue vancomycin because clinical improvement happened since its initiation. (3) CAP (community acquired pneumonia): Status: Acute Assessment and plan: vs aspiration PNA. As above Encourage IS as well. (4) Toxic metabolic encephalopathy: Status: Resolved Assessment and plan: due to above. At baseline. (5) Atrial flutter: Status: Resolved Assessment and plan: New Dx. Was rate controlled. Appears to have converted to NSR. Continue IVF. Echo with LVEF of 60-65%, no valvular disease, preserved wall motion. Given brown description of gastric contents, would not start on AC. Would discharge home with a cardiac event recorder. (6) Lactic acidosis: Status: Resolved Assessment and plan: Due to dehydration/hyperglycemia + infection. Continue IVF. (7) Gastroparesis: Status: Acute Assessment and plan: NGT pulled out by patient in the ED. h/o Tardive dyskinesia - not a candidate for reglan. Gastric contents described as brown - ensure no GI bleeding. Continue PPI. Planned for GES tomorrow. (8) Pseudohyponatremia: Status: Resolved Assessment and plan: Resolved with correction of glucose (9) Cholelithiasis: Status: Chronic Assessment and plan: With stones in the gallbladder neck. No evidence of cholecystitis. Not a source of infection. (10) Alcohol withdrawal: Status: Ruled-out Assessment and plan: Patient's denies that the patient drinks and the patient herself denies this this morning. (11) DVT prophylaxis: Status: Acute Assessment and plan: SCDs Chemical DVT ppx is contraindicated in setting of a possible GI bleed (12) Discharge planning issues: Status: Acute Assessment and plan: Full code Anticipate discharge home tomorrow with a cardiac event recorder. Subjective Subjective Interval history since last seen: Ms Irving is doing a lot better, she states. She has only had a little cough. Denies SOB, dizziness, chest pain, nausea, abdominal pain. She is requesting to go home today - and we discussed that tomorrow would be better. She agrees. Exam Narrative Exam Narrative: General: Middle-aged female, A&Ox3, doing much better than yesterday, answering all questions appropriately and asking appropriate questions herself. HEENT: EOMI, MMM Cardiovascular: RRR, no m/r/g Lungs:CTAB, no dyspnea Gastrointestinal: soft, nontender, nondistended. Extremities: no edema BLE's, skin dry, trace pedal pulses B. Objective Last Vital Signs Temp 36.3 C L 03/06/21 08:00 Pulse 86 03/06/21 08:00 Resp 18 03/06/21 08:00 BP 146/81 H 03/06/21 08:00 Pulse Ox 95 03/06/21 08:00 Laboratory Results - last 24 hr 03/06/21 03/06/21 07:16 07:16 WBC 11.53 H RBC 4.54 Hgb 13.3 Hct 40.1 MCV 88.3 MCH 29.3 MCHC 33.2 RDW 13.0 Plt Count 154 MPV 12.1 H Immature Gran % 1.0 Neutrophils % 62.8 Lymphocytes % 25.8 Monocytes % 7.9 Eosinophils % 2.2 Basophils % 0.3 Nucleated RBC % 0 Absolute Neutrophils 7.24 H Absolute Lymphocytes 2.97 Absolute Monocytes 0.91 H Absolute Eosinophils 0.25 Absolute Basophils 0.03 Sodium 145 Potassium 3.6 Chloride 109 H Carbon Dioxide 27.5 Anion Gap 8.5 BUN 14 Creatinine 0.5 L Estimated GFR/1.73 m2 >= 60.00 Glucose 74 D Calcium 8.8 Magnesium 1.9 C-Reactive Protein 4.98 H
--- NOTE | 2021-03-06 15:05 | DM INPTCON_ITS ---
Date of service: 03/06/21 Time of Service: 15:06 Diabetes Inpatient Consult DESCRIPTION/ASSESSMENT: Assessment: 60yo woman admitted with hyperosmolar nonketotic coma in diabetes, dehydration, CAP, sepsis, gastroparesis, pseudohyponatremia, chronic pancreatitis, cholelethiasis, lactic acidosis, toxic metabolic encephalopathy, and poorly controlled DMII. Meds: lonanzapine, divalproex, sertraline, ceftriaxone, Insulin aspart sensitive protocol and just initiated glargine at 30 units HS, doxycycline, vancomycin and pantoprazole. Spoke with Jennifer this morning ? with the conversation going in and out of focus (was trying to call out on the phone, worried that she had to submit her time card for work today). Jennifer verbalizes that she feels she does a good job managing her blood sugar/diabetes, but could not give an accurate diet history or talk about her usual eating habits all too specifically. Current BMI (35.1kg/m2) consistent with stage II obesity. Hgb A1c of 11.8 yesterday confirms poor glycemic control. Estimated nutrition needs: 1700kcals (REEx1.3), 81-97g protein (1-1.2g/kg IBW) and 2424mL fluid (adult obese method). Diagnosis: Stage II obesity AEB BMI 35-39.9. Inadequate vitamin D intake r/t Hx of vitamin D deficiency AEB most recent lab value of 9.3ng/mL in March 2019. Increased nutrient needs r/t hx of alcohol abuse AEB pt?s medical history. Intervention: Suggest repeat vitamin D test to assess any improvement from deficiency noted 2 year ago. Continue on diabetes consistent CHO diet. Pt declined detailed education towards diabetes or MNT for gastroparesis today but was open to the idea of trialing a CGM for two weeks and making an outpatient nutrition visit to review. Monitoring/Evaluation: will monitor nutrition related labs and med changes, weight, po intake/tolerance. Will approach before d/c to offer CGM to collect glucose readings for 2 weeks and attempt outpatient assessment and education. Levy Sotomayor NDTR ? Dental Practice Manager Time Spent in Nutritional Counseling and Treatment: 5
--- NOTE | 2021-03-06 15:14 | CHAPLAIN ---
Jnenifer is in bed, and he Campos is sitting on the edge of her bed. Jennifer was moved out of the ICU last night. She and Campos said they are anxious to see Dr. Damon, and are hopeful that Jennifer will be discharged. Campos was a patient here a couple if years ago.
[2021-03-06 16:38] LABS: Vancomycin, Trough 20.9 ug/mL (10.0-20.0)
--- NOTE | 2021-03-06 19:01 | CMPROGNOTE_ITS ---
Care Management Progress Note S/O: Jennifer continues to be closely monitored and treated. CM continues to follow. Her medications are prescribed by Symone Lares; CM will inquire as to why she reportedly stopped taking them. A: Jennifer is a 60 year old female admitted to [facility] on 03/03/2021 for HHNK and Toxic Metabolic Encephalopathy. P: Jennifer will likely be discharged home when medically cleared by provider. She will follow up with her PCP, psych med provider, and plan of care as directed. Her will drive her home via private vehicle when ready. CM will continue to follow.
[2021-03-06] MEDS: Insulin Glargine 300 UNITS/3 ML PEN 30 UNITS SC (21:13)
[2021-03-06] MEDS: Calcium Carbonate *TUMS* 500 MG CHEW PO (21:13)
[2021-03-06] MEDS: OLANZapine 10 MG TAB PO (21:17)
[2021-03-07 03:44] VITALS: BP 139/64; PULSE 80; RESP 17; TEMP 36.5; O2SAT 96
[2021-03-07] MEDS: Normal Saline 500 ML 30 ML IV (04:27)
[2021-03-07] MEDS: DOXYCYCLINE 100 MG in Normal Saline 100 ML IVPB (04:27)
[2021-03-07] MEDS: Normal Saline Flush 10 ML SYR IVP ×2 (04:28→07:49)
[2021-03-07 07:00] VITALS: PULSE 87
[2021-03-07 07:36] LABS: Abs Immature Grans 0.13 10^3/uL (0.0-0.06); Absolute Basophil Count 0.02 10^3/uL (0.0-0.2); Absolute Eosinophil Count 0.19 10^3/uL (0.0-0.7); Absolute Lymphocyte Count 2.31 10^3/uL (1.2-3.4); Absolute Monocyte Count 0.82 10^3/uL (0.1-0.8); Absolute Neutrophil Count 4.71 10^3/uL (1.2-6.7); Basophils % 0.2; Eosinophils % 2.3; HCT 37.1 % (36.0-46.0); HGB 12.4 g/dL (11.2-15.7); Immature Grans % 1.6; Lymphocytes % 28.2; MCH 29.1 pg (27.0-33.0); MCHC 33.4 % (32.0-36.0); MCV 87.1 fL (80-95); MPV 12.4 fL (8.0-11.0); Neutrophils % 57.7; Nucleated RBC 0 %; Platelet Count 150 10^3/uL (130-400); RBC 4.26 10^6/uL (3.93-5.22); RDW 13.1 % (11.7-14.6); RDW-SD 41.3 fL; WBC 8.18 10^3/uL (4.4-10.8)
[2021-03-07 07:47] LABS: Anion Gap 7.2 mmol/L (3-11); BUN 11 mg/dL (7-18); CO2 26.8 mmol/L (21.0-32.0); CREATININE 0.5 mg/dL (0.55-1.02); Calcium 8.9 mg/dL (8.5-10.1); Chloride 111 mmol/L (98-107); Glucose 130 mg/dL (74-106); Magnesium 1.8 mg/dL (1.8-2.4); Sodium 145 mmol/L (136-145)
[2021-03-07] MEDS: Lactated Ringers 1,000 ML 125 ML IV (07:50)
[2021-03-07] MEDS: VANCOMYCIN/WATER (PEG) 1 GM/200 ML BAG IVPB (07:50)
[2021-03-07] MEDS: Sertraline 50 MG TAB PO (07:50)
[2021-03-07] MEDS: Divalproex Sodium 500 MG TAB.ER.24H PO (07:50)
[2021-03-07] MEDS: Pantoprazole 40 MG TABCR PO (07:50)
[2021-03-07 07:55] LABS: Potassium 2.9 mmol/L (3.5-5.1)
[2021-03-07] MEDS: Insulin Aspart 300 UNITS/3 ML PEN SC (07:56)
--- NOTE | 2021-03-07 08:00 | DI.NM_ITS ---
Exam(s) NM GASTRIC EMPTYING CLINICAL HISTORY: concern for gastroparesis. COMPARISON: CT CT ABDOMEN PELVIS WO from 03/03/2021 EXAMINATION: PO Dose: 1 mCi Sulfur colloid in oatmeal Images performed immediately, 1 hour, 2 hour, and at 4 hours. FINDINGS: The total gastric emptying at 1 hour is calculated to be 70% The amount of gastric emptying at 2 hours is calculated to be 89 percent. The amount of gastric emptying at 4 hours is calculated to be 97 percent. T1/2= 42 minutes which is within normal limits. IMPRESSION: 1. No evidence of delayed gastric emptying. Indeed, gastric emptying appears slightly quicker than no rmal. SNM guidelines: 40% or more gastric emptying at 90 minutes is considered normal. Normal T 1/2 < 50 mi nutes. < 30% at 1 hour signifies abnormal rapid gastric emptying.
[2021-03-07 09:04] VITALS: BP 139/79; PULSE 81; RESP 16; TEMP 36.4; O2SAT 96
[2021-03-07] MEDS: Potassium Chloride Liquid 20 MEQ PKT 40 MEQ PO (10:01)
[2021-03-07] MEDS: POTASSIUM CHLORIDE 20 MEQ/100 ML BAG 50 MEQ IVPB (10:05)
[2021-03-07 10:09] VITALS: PULSE 84
--- NOTE | 2021-03-07 10:16 | PDOC.CMDIS ---
LACE Index Scoring Tool - Questions: Length of Stay (in days): 4 - 6 Acuity (Admit via E.D.?): Yes Comorbidities: Diabetes w/o Complication E.D. Visits: 2 - Answers: Total Score: 10 Risk of Readmission: High Risk Care Management Discharge Reason for Hospitalization: HHNK, Toxic Metabolic Encephalopathy. Discharge Plan: Jennifer will likely be discharged home when medically cleared by provider. She will follow up with her PCP, psych med provider, and plan of care as directed. Her will drive her home via private vehicle when ready. Patient/Family Education Needs: Review discharge instructions, discuss Ask Me Three. - MH Services (Omit if N/A) Current MH Services: Other (Med Management: Symone Lares)
[2021-03-07 10:46] LABS: HBs Antibody, Qual Negative (See Note); HBs Antibody, Quant <3.1 mIU/mL (See Note); Hepatitis B Core Antibody Negative (Negative); Hepatitis B surface Ag Negative (Negative); Hepatitis C Ab w Rflx HCV PCR Negative (Negative)
[2021-03-07 11:48] VITALS: BP 125/74; PULSE 76; RESP 16; TEMP 36.6; O2SAT 98
--- NOTE | 2021-03-07 15:41 | PDOC.STREC ---
Date of service: 03/07/21 Time of Service: 15:41 Speech Therapy Recommendations Report ST Recommendations: OLIVE PACKER attempting to contact this patient at noon over lunch meal. Per Nursing patient will be busy all afternoon in procedure and unable to be seen today. If patient has not been discharged, OLIVE PACKER to follow-up on Wednesday. Per MD report of patient having difficulty swallowing pills, recommend to give meds crushed in puree (as able) until OLIVE PACKER is able to see her. If discharged this weekend, recommend outpatient speech referral to address swallowing if patient continues to have difficulty. Coding
--- NOTE | 2021-03-07 15:48 | W.PM.DS.N ---
Date of service: 03/07/21 Time of Service: 15:48 DS: Diagnosis Discharge Diagnosis (1) Hyperosmolar nonketotic coma in diabetes: Status: Resolved (2) Sepsis: Status: Resolved (3) CAP (community acquired pneumonia): Status: Resolved (4) Toxic metabolic encephalopathy: Status: Resolved (5) Atrial flutter: Status: Resolved (6) Lactic acidosis: Status: Resolved (7) Gastroparesis: Status: Acute (8) Pseudohyponatremia: Status: Resolved (9) Cholelithiasis: Status: Chronic (10) Hypokalemia: Status: Acute (11) COVID-19 ruled out by laboratory testing: Status: Ruled-out (12) Poorly controlled diabetes mellitus: Status: Acute Discharge Plan Disposition Patient Disposition: HOME Condition: Critical Discharge Details Reason For Visit: HHNK,Toxic Metabolic Encephalopathy Admit Date/Time: 03/03/21 15:10 Admit Provider: Erin Damon Attending Provider: Erin Damon Primary Care Provider: Ana Gillespie Hospital Course Hospital Course: Ms Irving is a 60 year old female with PMHx os IDDM2, HTN, Bipolar 1 d/o, depression, who was admitted to [facility] ICU under the hospitalist service from on 03/03/21 with HHNK with BG of 1689 in setting of aspiration pneumonia due to suspected gastroparesis. She had atrial flutter on presentation. She was also confused. We ruled out meningitis with a negative LP, and her confusion was felt to be due to toxic metabolic encephalopathy. The patient was treated with IVF, insulin infusion, and empiric antibiotics. her imaging showed dilated esophagus, stomach and duodenum, which Dr Purcell of surgery felt was due to gastroparesis; the patient did not tolerate NGT and was not a candidate for reglan tx due to h/o tardive dyskenesia. After being NPO, she was able to tolerate a preogressively advanced diet. She improved drastically and was transferred out of the ICU on 03/05/21. Gastric emptying study is completed prior to her discharge, but not yet read and will need to be followed up as outpatient. She will also need to follow up with general surgery to ensure her esophageal dilation has resolved. Her Aflutter ocurred in setting of sepsis and resolved. PCP may consider extended cardiac monitoring, however. She is not being initiated on anticoagulation on discharge as her atrial flutter occured in setting of sepsis. The patient's mental status, leucocytosis, respiratory status all normalized. She is felt to be stable for discharge home today. As her potassium was low on day of discharge (repleted prior to discharge), she will need outpatient bloodwork to confirm its correction. Care for patient as well as completion of her discharge summary on day of discharge took 45 minutes. Home Meds and New Rx's Prescriptions: Continued alprazolam [Xanax] 1 mg Tablet 2 mg PO HS RF: 0 pantoprazole 40 mg Tablet,Delayed Release (Dr/Ec) 80 mg PO DAILY RF: 0 fluconazole 150 mg tablet 150 mg RF: 0 olanzapine 5 mg tablet 10 mg PO HS RF: 0 divalproex 500 mg tablet extended release 24 hr 500 mg PO BID RF: 0 lisinopril 5 mg tablet 5 mg PO DAILY RF: 0 sertraline 50 mg tablet 50 mg PO DAILY RF: 0 Humulin N NPH Insulin KwikPen 100 unit/mL (3 mL) insulin pen 40 unit SUBCUT HS RF: 0 varenicline 0.5 mg (11)- 1 mg (42) Tablets,Dose Pack RF: 0 glyburide 5 mg tablet 10 mg PO BID Qty: 120 RF: 0 Discharge Instructions Instructions: Aspiration Pneumonia (DC), Sepsis (DC), Hyperosmolar Hyperglycemic State (DC), Gastroparesis (DC) Additional Instructions: Take your medications as prescribed. Return to the hospital with any fever, bleeding, chest pain, shortness of breath. Bloodwork 03/10/21. Stand Alone Forms: Nursing Discharge Form Referrals: Merly Purcell DO [OSTEOPATHIC DOCTOR] - Ana Gillespie [Primary Care Provider] - Activity:: Activity as Tolerated Equipment/Supplies:: No Equipment Needed Diet:: Carb Counting Discharge Orders Discharge Orders: Discharge Order (Routine); Ordered 03/07/21 Ordered By: Erin Damon Other Ambulatory Orders: Basic Metabolic Panel (Routine) Timeframe: 20210310 Facility: [facility] - Location: Laboratory Outpatient Ordered By: Erin Damon Complete Blood Count w/Diff (Routine) Timeframe: 20210310 Facility: [facility] - Location: Laboratory Outpatient Ordered By: Erin Damon DS: Summary Time Spent with Patient providing and/or coordinating discharge services: Greater than 30 minutes Status at Discharge Functional status at discharge: independent ambulation Overall status at discharge: patient is back to baseline Mental Status: mental status grossly normal Speech and Movement: speech and movement normal Mood: congruent mood Affect: normal affect Exam Narrative Exam Narrative: General: Middle-aged female, A&Ox3,looks even better than yesterday HEENT: EOMI, MMM Cardiovascular: RRR, no m/r/g Lungs:CTAB, no dyspnea Gastrointestinal: soft, nontender, nondistended. Extremities: no edema BLE's, skin dry, trace pedal pulses B. Psych Mental Status: mental status grossly normal Speech and Movement: speech and movement normal Mood: congruent mood Affect: normal affect DS: Data Vitals/I&O Vitals and I&O: Vital Signs Temperature 36.6 C 03/07/21 11:48 Temperature Source Tympanic 03/07/21 11:48 Pulse 76 03/07/21 11:48 Pulse Rhythm Regular 03/07/21 08:25 Pulse 91 H 03/05/21 13:00 Respiratory Rate 16 03/07/21 11:48 Respiratory Effort 03/07/21 08:25 Respiratory Depth Normal 03/07/21 08:25 Respiratory Pattern Normal 03/07/21 08:25 Blood Pressure 125/74 03/07/21 11:48 Blood Pressure Mean 98 03/05/21 10:41 Blood Pressure Position Supine 03/05/21 08:00 Pulse Oximetry 98 03/07/21 11:48 Oxygen Delivery Method Room Air 03/07/21 11:48 Oxygen Flow Rate 0 03/07/21 11:48 Pain Level 0 03/07/21 11:48 Comment 03/06/21 19:35 Intake & Output 03/06/21 03/07/21 03/07/21 23:59 11:59 23:59 Intake Total 1310 / 3910 1850.834 / 1850.834 Output Total 150 / 600 200 / 200 Balance 1160 / 3310 1650.834 / 1650.834 Weight 66.9 kg Intake: IV 1310 / 3910 1610.834 / 1610.834 Oral 240 / 240 Output: Urine 150 / 600 200 / 200 Other: Urine Color Yellow Yellow Urine Appearance Clear Clear Urine Odor Normal Comment incontinent and continent void. Stool Occult Blood Negative Stool Size Moderate Small Stool Characteristics Soft Liquid Brown Black Green Voiding Methods Incontinent Toilet Diaper Data Completed and Pending Completed studies during hospitalization [Text1]: CT head: No acute intracranial findings on this noninfused CT scan of the brain. CT abdomen/pelvis: 1. There is gastric and duodenal and esophageal distension. No obvious point of transition small-bowel obstruction. No colonic obstruction. 2. There are multiple tiny gallstones in the gallbladder neck. No gallbladder wall edema. CBD is not dilated. 3. Fat containing lateral right abdominal hernia measuring 5.5 x 3 cm. No bowel loops within the hernia sac. Uterus is surgically absent. No abnormal adnexal masses. Urinary bladder is distended. CXR 03/03/21: Infiltrates evident in both lung bases.No pleural effusions. US abdomen 03/03/21: Tiny stones and sludge. No evidence of acute cholecystitis. CXR 03/04/21: Bibasilar infiltrates and atelectasis Echo 03/04/21: Normal left ventricular wall thickness and chamber size. Estimated ejection fraction is 60 to 65%. There are no segmental wall motion abnormalities Normal right ventricular size and systolic function Both atria are normal in size There are no structural or hemodynamically significant valvular abnormalities Normal estimated right ventricular systolic pressure 21 mmHg Labs on day of discharge: Labs from last 24 hours 03/07/21 03/07/21 03/06/21 07:00 07:00 16:00 WBC 8.18 RBC 4.26 Hgb 12.4 Hct 37.1 MCV 87.1 MCH 29.1 MCHC 33.4 RDW 13.1 Plt Count 150 MPV 12.4 H Immature Gran % 1.6 Neutrophils % 57.7 Lymphocytes % 28.2 Monocytes % 10.0 Eosinophils % 2.3 Basophils % 0.2 Nucleated RBC % 0 Absolute Neutrophils 4.71 Absolute Lymphocytes 2.31 Absolute Monocytes 0.82 H Absolute Eosinophils 0.19 Absolute Basophils 0.02 Sodium 145 Potassium 2.9 L Chloride 111 H Carbon Dioxide 26.8 Anion Gap 7.2 BUN 11 Creatinine 0.5 L Estimated GFR/1.73 m2 >= 60.00 Glucose 130 H Calcium 8.9 Magnesium 1.8 Vancomycin Trough 20.9 H* Hep Bs Antigen Hep Bs Antibody Hep Bs Antibody, Quant Hep B Core Total Ab Hepatitis C Antibody 03/06/21 07:10 WBC RBC Hgb Hct MCV MCH MCHC RDW Plt Count MPV Immature Gran % Neutrophils % Lymphocytes % Monocytes % Eosinophils % Basophils % Nucleated RBC % Absolute Neutrophils Absolute Lymphocytes Absolute Monocytes Absolute Eosinophils Absolute Basophils Sodium Potassium Chloride Carbon Dioxide Anion Gap BUN Creatinine Estimated GFR/1.73 m2 Glucose Calcium Magnesium Vancomycin Trough Hep Bs Antigen Negative Hep Bs Antibody Negative Hep Bs Antibody, Quant <3.1 Hep B Core Total Ab Negative Hepatitis C Antibody Negative Preliminary micro results at discharge 03/03/21 12:40 Blood Culture - Preliminary Blood NO GROWTH 96 HOURS 03/05/21 06:29 Blood Culture - Preliminary Blood NO GROWTH 48 HOURS 03/04/21 12:37 Body Fluid Culture - Preliminary Cerebrospinal Fluid 03/03/21 11:00 Blood Culture - Preliminary Blood Staphylococcus Epidermidis [facility] Medical History Alcohol abuse Anxiety Bipolar 1 disorder Depression Diabetes History of pilonidal cyst Surgical History History of section History of hysterectomy History of tonsillectomy Social History Smoking/Tobacco Use Status: Former Tobacco Use Quit Date: 04/09/19 Smoking risk assessment performed?: Yes Alcohol Intake: current Alcohol Intake frequency: a few times a month Drug use: Never Substance use type: does not use Do you feel safe at home: Yes Do you feel safe in your relationship?: Yes
--- NOTE | 2021-03-07 18:10 | INDS_ITS ---
Date of service: 03/07/21 Time of Service: 18:00 PT Notes Visit Reasons: HHNK,Toxic Metabolic Encephalopathy Physical Therapy Inpatient Discharge Summary Date: 03/07/2021 Dates of Service: 03/05/2021 through 03/07/2021 This is a clinical summary of care provided for the duration of dates listed above. No charge was made in the completion of this documentation. Referring Doctor: Erin Damon MD PT Orders: PT CONSULT: Limited ability Precautions: Fall. Standard. Activity as tolerated. Patient Profile/Admitting Diagnosis: Jennifer is a 60-year-old female who presented to the ED on 03/03/2021 with intermittent vomiting, generalized weakness, and increasing confusion. Patient is diagnosed with sepsis status post lumbar tap today, community-acquired pneumonia, hyperosmolar nonketotic diabetic coma, EtOH withdrawal, toxic metabolic encephalopathy pseudohyponatremia, lactic acidosis, atrial fibrillation, gastroparesis, and cholelithiasis. PMHX: Medical History (Updated 03/03/21 @ 18:11 by Erin Damon MD) Alcohol abuse Anxiety Bipolar 1 disorder Depression Diabetes History of pilonidal cyst Surgical History History of section History of hysterectomy History of tonsillectomy Social History/Home Situation: Lives with son and daughter. Residual altered mental status limits ability to respond to questions at this time. 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 Equipment Owned/DME: None Subjective: NT. See most recent HR SPECIALIST notes. Objective: General Observation: NT. See most recent HR SPECIALIST notes. Mental Status: NT. See most recent HR SPECIALIST notes. Pain: NT. See most recent HR SPECIALIST notes. ROM: Right Upper Extremity: Shoulder Flexion WFL. Shoulder abduction WFL. Elbow flexion WFL. Wrist flexion WFL. Functional opening and closing of hand WFL. Left Upper Extremity: Shoulder Flexion WFL. Shoulder abduction WFL. Elbow flexion WFL. Wrist flexion WFL. Functional opening and closing of hand WFL. Right Lower Extremity: Hip flexion WFL. Hip abduction WFL. Knee flexion WFL. Ankle dorsiflexion WFL. Ankle plantarflexion WFL. Left Lower Extremity: Hip flexion WFL. Hip abduction WFL. Knee flexion WFL. Ankle dorsiflexion WFL. Ankle plantarflexion WFL. Strength: Right Upper Extremity: Shoulder flexors 4-/5. Shoulder abductors 4-/5. Elbow flexors 4-/5. Elbow extensors 4-/5. Agriculture Instructor strong. Left Upper Extremity: Shoulder flexors 4-/5. Shoulder abductors 4-/5. Elbow flexors 4-/5. Elbow extensors 4-/5. Agriculture Instructor strong. Right Lower Extremity: Hip flexors 3+/5. Hip abductors 3+/5. Knee flexors 3+/5. Knee extensors 3+/5. Ankle dorsiflexors 4-/5. Ankle plantarflexors 4-/5. Left Lower Extremity: Hip flexors 3+/5. Hip abductors 3+/5. Knee flexors 3+/5. Knee extensors 3+/5. Ankle dorsiflexors 4-/5. Ankle plantarflexors 4-/5. Bed Mobility/Transfers: Rolling independent Supine to sit independent Sit to supine independent Sit to stand independent Stand to sit independent Bed to bedside commode supervision with no AD Bedside commode to bed supervision with no AD Bed to reclining chair supervision with no AD Reclining chair to bed supervision with no AD Gait: Instructed patient with level surface ambulation of 150 feet requiring minimal assist assist. Christine increased. Fatigue after ambulation activity. Requires moderate to maximal verbal cueing for walker management. Minimal path deviation. Balance: Static Sitting: Normal Dynamic Sitting: Normal Static Standing: Good Dynamic Standing: Good Assessment: Jennifer demonstrates significant functional mobility decline requiring the use of front wheeled walker and assistance of 1 person to reduce fall risk and to safely perform mobility ADLs. Patient presents with clinical signs and symptoms consistent with current/admitting diagnoses that have resulted to mobility limitations, gait instability, generalized weakness, and overall ADL decline as demonstrated by the following impairment level findings: 1. Impaired activity tolerance 2. Mild path deviation 3. Fatigue Impairments are contributing to the following functional limitations: 1. Increased completion time for mobility ADL performance Goals: Goals X1 week 1. Supine-Sit independent MET 2. Sit-Supine independent MET 3. Sit-Stand independent MET 4. Stand-Sit independent with no assistive device MET 5. Bed-Chair independent with no assistive device MET 6. Chair-Bed independent with no assistive device MET 7. Independent gait on level surface with use of no assistive device for at least 300 feet without report of pain nor dyspnea NOT MET 8. Independent stair negotiation while holding onto B rails for at least 5 steps without report of pain nor dyspnea NOT MET 9. Independent with home exercise program NOT MET 10. Good static and dynamic standing balance/tolerance NOT MET DISCHARGE RECOMMENDATIONS: Patient will benefit from home health PT services in order to progress mobility level using least restrictive assistive ambulatory device, assess home safety, identify additional equipment needs, and establish a functional maintenance program that will increase ability of patient to remain at home. TREATMENT CODE/TIME: OK Thank you for the opportunity to participate in the care of this patient. Sangita Luz PT, DPT, CLT [facility] [place], [place]
== END 2021-03-07 16:45 | disposition home or self-care (01) | DRG 871 ==
LOC: ER 16:46 → ICU 17:37 → MS 03-05 17:22
PROVIDERS: General Practice; Surgery; Admitting Provider Internal Medicine; Emergency Provider Physician Assistant; PCP Nurse Practitioner Family; Visit Provider Internal Medicine
DX: A41.9 Sepsis, unspecified organism; E11.00 Type 2 diabetes mellitus with hyperosmolarity without nonketotic hyperglycemic-hyperosmolar coma (NKHHC); J18.9 Pneumonia, unspecified organism; G92.8 Other toxic encephalopathy; J69.0 Pneumonitis due to inhalation of food and vomit; I48.92 Unspecified atrial flutter; N17.9 Acute kidney failure, unspecified; F31.9 Bipolar disorder, unspecified; E11.43 Type 2 diabetes mellitus with diabetic autonomic (poly)neuropathy; Z20.822 Contact with and (suspected) exposure to COVID-19; F41.9 Anxiety disorder, unspecified; E86.0 Dehydration; K31.84 Gastroparesis; K80.20 Calculus of gallbladder without cholecystitis without obstruction; K43.9 Ventral hernia without obstruction or gangrene; Z79.84 Long term (current) use of oral hypoglycemic drugs; Z79.4 Long term (current) use of insulin; Z87.891 Personal history of nicotine dependence
CPT/HCPCS: 62270; 36415; 36416; 51702; 78265; 80048; 80053; 80061; 80307; 82805; 82945; 82947; 82962; 83690; 83721; 84145; 86704; 86706; 86803; 87040; 87077; 87340; 87635; 89050; 89051; 93005; 96361; 96365; 97162; 97530; 99291; 70450; 71045; 74176; 76705; 80164; 80202; 80320; 81003; 82150; 82977; 83036; 83605; 83735; 84100; 84157; 84484; 85025; 86140; 87070; 87186; 87205; 93010; 93306; 99232; 99239; J2060; J2250; J2543; J2765; J3480; J3490

== ENCOUNTER 2021-03-10 12:45 | Outpatient (CLI) | payer MEDICAID, SELFPAY ==
[2021-03-10 12:17] LABS: Abs Immature Grans 0.28 10^3/uL (0.0-0.06); Absolute Basophil Count 0.03 10^3/uL (0.0-0.2); Absolute Eosinophil Count 0.12 10^3/uL (0.0-0.7); Absolute Monocyte Count 1.17 10^3/uL (0.1-0.8); Absolute Neutrophil Count 4.13 10^3/uL (1.2-6.7); Basophils % 0.4; Eosinophils % 1.6; HGB 13.8 g/dL (11.2-15.7); Immature Grans % 3.8; Lymphocytes % 22.9; MCH 29.3 pg (27.0-33.0); MCHC 32.1 % (32.0-36.0); MCV 91.3 fL (80-95); MPV 11.4 fL (8.0-11.0); Monocytes % 15.7; Neutrophils % 55.6; Nucleated RBC 0 %; Platelet Count 204 10^3/uL (130-400); RBC 4.71 10^6/uL (3.93-5.22); RDW 13.2 % (11.7-14.6); RDW-SD 44.5 fL; WBC 7.43 10^3/uL (4.4-10.8)
[2021-03-10 13:00] LABS: Anion Gap 8.5 mmol/L (3-11); BUN 4 mg/dL (7-18); CO2 29.5 mmol/L (21.0-32.0); CREATININE 0.5 mg/dL (0.55-1.02); Chloride 107 mmol/L (98-107); Potassium 3.2 mmol/L (3.5-5.1); Sodium 145 mmol/L (136-145)
[2021-03-10 13:11] LABS: Glucose 45 mg/dL (74-106)
== END 2021-03-10 12:46 | disposition home or self-care (01) ==
LOC: LBO 12:46
PROVIDERS: PCP Nurse Practitioner Family; Visit Provider Internal Medicine
DX: E11.65 Type 2 diabetes mellitus with hyperglycemia (principal); A41.9 Sepsis, unspecified organism
CPT/HCPCS: 36415; 80048; 85025

== ENCOUNTER 2021-03-17 16:50 | Outpatient (REF) | payer MEDICAID, SELFPAY ==
[2021-03-17 22:32] LABS: Potassium 4.3 mmol/L (3.5-5.1)
== END 2021-03-17 16:51 | disposition home or self-care (01) ==
LOC: NCHCN 16:50
PROVIDERS: PCP Nurse Practitioner Family; Visit Provider Nurse Practitioner Family
DX: K52.9 Noninfective gastroenteritis and colitis, unspecified (principal)
CPT/HCPCS: 84132

== ENCOUNTER 2021-04-16 16:30 | Outpatient (REF) | payer MEDICAID, SELFPAY ==
[2021-04-16 22:14] LABS: HCT 30.2 % (36.0-46.0); HGB 9.3 g/dL (11.2-15.7); MCH 28.9 pg (27.0-33.0); MCHC 30.8 % (32.0-36.0); MCV 93.8 fL (80-95); MPV 10.1 fL (8.0-11.0); Platelet Count 411 10^3/uL (130-400); RBC 3.22 10^6/uL (3.93-5.22); RDW 15.4 % (11.7-14.6); RDW-SD 53.1 fL; WBC 8.22 10^3/uL (4.4-10.8)
[2021-04-16 22:51] LABS: ALT 8 U/L (14-59); AST < 5 U/L (15-37); Albumin 2.6 g/dL (3.4-5.0); Alkaline Phosphatase 64 U/L (46-116); Amylase 23 U/L (25-115); Anion Gap 8.8 mmol/L (3-11); BUN 11 mg/dL (7-18); Bilirubin, Total 0.1 mg/dL (0.2-1.0); CO2 28.2 mmol/L (21.0-32.0); Calcium 9.2 mg/dL (8.5-10.1); Chloride 97 mmol/L (98-107); Estimated GFR 56.56 (mL/min/1.73m2); Glucose 220 mg/dL (74-106); Lipase 40 U/L (73-393); Potassium 4.4 mmol/L (3.5-5.1); Sodium 134 mmol/L (136-145); Total Protein 6.1 g/dL (6.4-8.2)
== END 2021-04-16 16:31 | disposition home or self-care (01) ==
LOC: NCHCN 16:30
PROVIDERS: PCP Nurse Practitioner Family; Visit Provider Nurse Practitioner Family
DX: R11.2 Nausea with vomiting, unspecified (principal)
CPT/HCPCS: 80053; 83690; 85027; 82150

== ENCOUNTER 2021-04-22 13:32 | Emergency (ER) | payer MEDICAID, SELFPAY ==
[2021-04-22] VITALS (56 sets, daily range): BP systolic 47–142; BP diastolic 20–125; PULSE 95–134; RESP 14–24; TEMP 36.5; O2SAT 95–100
--- NOTE | 2021-04-22 13:30 | RT.EKG_ITS ---
APPROVED REPORT Exam: Resting ECG Reason for Exam: gi bleed? Patient Location: E HR:113 bpm ECG Measurements Heart Rate 113 AXIS NM 128 P 64 QRSd 77 QRS 84 QT 308 T -28 QTc 422 Conclusion Sinus tachycardia...rate> 99
--- NOTE | 2021-04-22 14:23 | W.ED.GENAD ---
Discharge Plan Disposition Patient Disposition: HOME Condition: Stable Discharge Details Clinical Impression: Anemia, Leukocytosis, Pleural effusion, Esophagitis Primary Care Provider: Ana Gillespie ED Provider: Keke Bauman Home Meds and New Rx's Prescriptions: Continued pantoprazole 40 mg Tablet,Delayed Release (Dr/Ec) 80 mg PO DAILY RF: 0 olanzapine 5 mg tablet 10 mg PO HS RF: 0 divalproex 500 mg tablet extended release 24 hr 500 mg PO BID RF: 0 lisinopril 5 mg tablet 5 mg PO DAILY RF: 0 Humulin N NPH Insulin KwikPen 100 unit/mL (3 mL) insulin pen 40 unit SUBCUT HS RF: 0 varenicline 0.5 mg (11)- 1 mg (42) Tablets,Dose Pack RF: 0 glyburide 5 mg tablet 10 mg PO BID Qty: 120 RF: 0 quetiapine 100 mg tablet 200 mg PO HS RF: 0 Discharge Instructions Instructions: Leukocytosis (ED), Anemia (ED) Additional Instructions: As we discussed, your anemia is slightly worse. You will likely need an endoscopy and colonoscopy for further evaluation. Please call your GI team at [facility]. To help expedite the process, I have also referred you locally in the event you would like to have this completed here. You did have a redemonstration of the thickening of your esophagus as well as her small pleural effusions. There is no evidence to suggest pneumonia, UTI or abdominal infection at this time I am concerned that you have an elevated white count but as noted above, I cannot find any suggestion of infection. You do have blood cultures pending. Please continue to encourage hydration. Keep your upcoming appointment with your primary care. If you develop any new or worsening symptoms please seek care urgently once again. Referrals: Ana Gillespie [Primary Care Provider] - Discharge Data Discharge Date/Time-TO BE ENTERED AT DEPARTURE: 04/22/21 20:17 Medical Decision Making <ROSLYN Angel - Last Filed: 04/23/21 16:08> 60-year-old female, recent hospitalization, past medical history of diabetes, alcohol abuse, MARILIN, diabetes, bipolar, cholelithiasis, gastroparesis, metabolic encephalopathy, presenting to the ER today for a multitude of complaints. Apparently [facility] contacted her on the phone because of a low H&H, they felt as though she could may be altered on the phone and she hung up on them. They in turn called EMS who upon arrival stated the patient was hypotensive and tachycardic. Upon arrival here she is hypertensive and tachycardic. Patient reports blood in her vomit a couple of weeks ago but none now. states that she is at her baseline mental status and denies any black tarry stools or bright red blood in her stools or blood in her vomit. Patient states that she does not want to be here and I just want to go home. Her overall presentation is rather confusing but she is tachycardic, admits to abdominal pain, nausea and vomiting. Will obtain IV access and give IV fluid, Zantac and Protonix for potential GI bleed, I see no evidence of varices and will hold on any octreotide. Will initiate a septic work-up as well as a cardiac work-up given her tachycardia. Will obtain a type and screen given her potential low H&H. Will obtain chest x-ray and a CT imaging of the abdomen and pelvis Rectal exam was heme negative I was able to review her recent admission and recent laboratory values. Hemoglobin and hematocrit on 03-10 were 13.8 and 43.8. On 04-16 they were 9.3 and 30.2. Unfortunately multiple attempts made by ER staff with ultrasound but unable to obtain IV access. Anesthesia contacted and they were able to establish IV access. For the time being patient is agreeable to awaiting this work-up but she continues to state that she would like to leave Medical Records Medical records reviewed: Yes I reviewed the patient's medical records. ECG Data Attestation: I personally reviewed and interpreted this ECG (s) as follows: Interpretation: Please see official report by Dr. Velarde. Sinus tachycardia, ventricular of 113. No STEMI. <ROSLYN Clemente - Last Filed: 04/22/21 20:04> Care transition myself from Sergey Kohli PA-C. Please see his initial note regarding history, presentation and exam. In brief, patient is a 60-year-old female who was sent in by primary care with concern for anemia. Patient does have complex past medical history and was recently discharged for hyperosmolar nonketoacidotic coma and diabetes, sepsis, pneumonia, toxic metabolic encephalopathy, atrial flutter, lactic acidosis, gastroparesis, pseudohyponatremia, cholelithiasis, hypokalemia. Patient had reported to Mr. Kohli that she was vomiting over the weekend. Is currently feeling at her baseline and has also reports that she is at her baseline. Regards the anemia, patient did note blood in her vomit a few weeks ago. Patient did have some abdominal pain which sounds to be chronic in nature. He did initially have difficulty with access and anesthesia was able to place a peripheral line. Patient has received Zantac, Protonix. Patient is receiving fluids currently. Heme-negative on rectal exam. At the time I assumed care, labs and imaging pending. Labs reviewed. Patient has an elevated white count of 18.8. Her hemoglobin is 8.9, this is down from 9.36 days ago. Lactate 1.8. Coags are normal. CMP pending. Reassessed the patient and she reports feeling some acid reflux. States that she has done well with Tums in the past and is requesting a dose. FINDINGS: Pleural spaces: Small bilateral pleural effusions are slightly increased in volume. Adjacent probably compressive atelectasis also increased appearing [id number]. Mediastinal space: Redemonstration of moderate wall thickening of the distal esophagus in association with a small hiatal hernia. Surrounding edema. Esophageal wall thickening appears probably slightly increased. Liver: Benign-appearing hepatic cyst. No hepatic masses. Gallbladder and bile ducts: Possible small gallstone not optimally assessed. No significant biliary dilation or radiopaque stones in the biliary tree. Pancreas: No ductal dilation. No masses. Spleen: No splenomegaly or focal lesions. Adrenal glands: No mass. Kidneys and ureters: No renal masses or hydronephrosis bilaterally. Stomach and bowel: Motion artifact affects assessment of the small bowel and colon. No gross colitis. Moderate to large stool burden. No focal pathology in the small bowel. Appendix: No evidence of appendicitis. Intraperitoneal space: No free air. No significant fluid collection. Vasculature: Chronic appearing stenosis right common iliac artery. No aortic aneurysm. Lymph nodes: No significantly enlarged lymph nodes. Urinary bladder: Unremarkable as visualized. Reproductive: Hysterectomy. Bones/joints: No displaced fracture allowing for motion. Soft tissues: No suspicious lesions. IMPRESSION: 1. Redemonstration of moderate wall appearing distal esophagitis in association with a small hiatal hernia. 2. Incidental findings as described. FINDINGS: Lungs: Bilateral dependent compressive atelectasis favored over pneumonia. Pleural spaces: Known small bilateral pleural effusions better assessed on same day CT. No pneumothorax. Heart/Mediastinum: No cardiomegaly. Bones/joints: No acute fracture. IMPRESSION: 1. Known small bilateral pleural effusions better assessed on same day CT. 2. Bilateral dependent compressive atelectasis favored over pneumonia. Repeat troponin remains less than less than 50. I did discuss the imaging and labs with the patient and her significant other. Patient is requesting discharge to home. Patient feeling significantly improved after IV hydration. We did discuss her anemia. Patient was well aware of her esophagitis and had EGD every 2 years at [facility] for monitoring of known Farrell's esophagus. This may be the source of her continued anemia. Again, I do not see any evidence to suggest life-threatening anemia or significant active bleeding at this time. I do feel that prompt follow-up would be appropriate. I have asked her care management to ensure that patient has prompt follow-up. I did advise that if she would like to complete this adjacency this could be a potential but that it needs to have an expeditious manner. She has an appointment on with her primary care. In regard to leukocytosis, she does have a notable white count but has been asymptomatic and I do not have evidence of infection on her labs. She does not have any evidence of pneumonia, intra-abdominal infection. Her Covid testing was negative. Blood cultures are pending. Patient was given strict return precautions. She feels comfortable going home, wants to have dinner and go to bed. Patient is in the accompaniment of her who will bring her back with any new or worsening symptoms. All of their questions and concerns were addressed in agreement with this plan. HPI <ROSLYN Angel - Last Filed: 04/23/21 16:08> General Mode of arrival: EMS. Date/Time Provider Initiated Documentation: 04/22/21 13:39. Limitations to Documentation: no limitations. Information obtained by: patient, family and EMS. HPI Narrative: This is a 60-year-old female, past medical history of alcohol abuse, diabetes, MARILIN, depression, bipolar type I disorder, cholelithiasis, a flutter, metabolic encephalopathy, who was admitted to our facility in February and discharged on March 07 with community-acquired pneumonia, MARILIN, sepsis, presenting today for abnormal blood count, abdominal pain, nausea, vomiting, tachycardia, EMS called by [facility] and sent to the ER for further evaluation. Patient unfortunately is a rather vague and poor historian, is accompanied by her who tends to answer the majority of the questions. There was a question of altered mental status but her reports that she is at her baseline. He states that she has had nausea and vomiting, not bloody, over the weekend associated with some abdominal pain, and concern for dehydration. She reports diffuse mild abdominal pain but no current nausea. Initially I was told that there may have been bloody vomitus but her states that she has been emptying her vomit bag and there is no blood in the vomit whatsoever. Denies black tarry stools or bright red blood in her stools. Denies headache, chest pain, shortness of breath, pain or swelling in her extremities, skin rash. Patient is hesitant to be here, with prefer not to have IV access established. After discussing her overall presentation, tachycardia, [facility] concerned, they are willing to obtain a work-up. The states that she is currently being worked up for chronic cholelithiasis and has an outpatient CT planned sometime in the next couple of weeks. She reports drinking alcohol very intermittently, last drink with a single alcoholic drink a couple weeks ago. Related Data Home Medications Medication Instructions Recorded Confirmed pantoprazole 80 mg PO DAILY 05/10/19 04/22/21 Humulin N NPH Insulin KwikPen 40 unit SUBCUT HS 03/04/21 04/22/21 divalproex 500 mg PO BID 03/04/21 04/22/21 lisinopril 5 mg PO DAILY 03/04/21 04/22/21 olanzapine 10 mg PO HS 03/04/21 04/22/21 varenicline dose pk 03/04/21 glyburide 10 mg PO BID #120 tab 03/07/21 04/22/21 quetiapine 200 mg PO HS 04/22/21 04/22/21 Previous Rx's Medication Instructions Recorded glyburide 10 mg PO BID #120 tab 03/07/21 Allergies Allergy/AdvReac Type Severity Reaction Status Date / Time meperidine AdvReac gi upset Unverified 04/22/21 13:41 General Stated Complaint: GI Bleed ASHANTI: 2 Review of Systems <ROSLYN Angel - Last Filed: 04/23/21 16:08> Constitutional Constitutional: Denies fatigue, Denies fever(s), Denies headache(s) and Denies weakness ENT Ears, Nose, Mouth, and Throat: Denies headache(s) and Denies neck pain Cardiovascular Cardiovascular: Denies chest pain and Denies dyspnea Respiratory Respiratory: Denies cough and Denies dyspnea Gastrointestinal Gastrointestinal: Reports abdominal pain, Denies melena, Denies hematochezia, Denies constipation, Denies diarrhea, Reports nausea and Reports vomiting Genitourinary Genitourinary: Denies dysuria Musculoskeletal Musculoskeletal: Denies back pain and Denies neck pain Integumentary/Breasts Skin/Breast: Denies rash Neurologic Neurologic: Denies headache(s) and Denies weakness Endocrine Endocrine: Denies fatigue Hematologic/Lymphatic Hematologic/Lymphatic: Denies easy bleeding and Denies easy bruising PFSH <ROSLYN Angel - Last Filed: 04/23/21 16:08> All Active Problems (Updated 04/22/21 @ 19:54 by ROSLYN Clemente) Anemia (Chronic) Leukocytosis (Acute) Pleural effusion (Acute) Esophagitis (Acute) Hypokalemia (Acute) ETOH abuse (Chronic) Ventral hernia (Acute) Poorly controlled diabetes mellitus (Acute) Dehydration with hyponatremia (Acute) Chronic pancreatitis due to acute alcohol intoxication (Acute) MARILIN (acute kidney injury) (Acute) Depression (Chronic) Bipolar 1 disorder (Acute) Cholelithiasis (Chronic) Gastroparesis (Acute) Discharge planning issues (Acute) DVT prophylaxis (Acute) Confusion (Acute) Medical History Alcohol abuse Anxiety Diabetes History of pilonidal cyst Surgical History History of section History of hysterectomy History of tonsillectomy Social History Smoking/Tobacco Use Status: Former Tobacco Use Quit Date: 04/09/19 Smoking risk assessment performed?: Yes Alcohol Intake: current Alcohol Intake frequency: a few times a month Drug use: Never Substance use type: does not use Do you feel safe at home: Yes Do you feel safe in your relationship?: Yes Exam <ROSLYN Angel - Last Filed: 04/23/21 16:08> Const General: cooperative, comfortable and no acute distress Orientation: alert, awake and oriented x3 HENMT Head: normal to inspection, normocephalic and atraumatic Face and sinus: normal facial exam Mouth: moist mucous membranes abnormal (Slightly dry) Eyes General: appearance normal, both eyes and all related structures Conjunctivae: conjunctivae normal Neck Neck: normal visual inspection, full ROM, trachea midline, supple and nontender Resp Effort & Inspection: normal respiratory effort and able to speak in complete sentences Auscultation: diminished lung sounds bilaterally in the lower lung howard (Minimally) Cardio Rate: tachycardic (122) Rhythm: regular rhythm GI Inspection: normal to inspection Palpation: soft, not firm, no guarding, no pulsatile masses and tender (Diffuse, mild) with no rebound tenderness Auscultation: normal bowel sounds Rectal Exam - female: visual inspection normal, normal sphincter tone, heme negative stool and other (Performed with female RN and in room) Back/Spine/Pelvis Back: no CVA tenderness and No back tenderness Skin General skin exam: no rashes or lesions noted Neuro General: patient alert, patient awake, patient oriented x3, moves all extremities and no focal motor deficits Cognition: normal cognition Speech: speech normal Motor: muscle tone normal throughout Sensory Exam: no sensory deficits noted Extrem General: normal to inspection, full ROM and capillary refill normal Psych Appearance: grossly normal Mental Status: mental status grossly normal Course <ROSLYN Angel - Last Filed: 04/23/21 16:08> Vital Signs Vital signs: Vital Signs Temperature 36.5 C 04/22/21 13:33 Pulse 120 H 04/22/21 13:33 Respiratory Rate 18 04/22/21 13:33 Blood Pressure 120/86 04/22/21 13:33 Pulse Oximetry 99 04/22/21 13:33 Temperature 36.5 C 04/22/21 13:33 Temperature Source Temporal Artery Scan 04/22/21 13:33 Pulse 120 H 04/22/21 13:33 Respiratory Rate 18 04/22/21 13:33 Respiratory Effort Non-Labored 04/22/21 13:44 Blood Pressure 120/86 04/22/21 13:33 Blood Pressure Position Sitting 04/22/21 13:33 Pulse Oximetry 99 04/22/21 13:33 Oxygen Delivery Method Room Air 04/22/21 13:33 Oxygen Flow Rate 0 04/22/21 13:33 Pain Level 0 04/22/21 13:33 Lab/Test Results Lab/Test Results: 04/22/21 14:01 Blood Blood Culture - Pending 04/22/21 14:01 Blood Blood Culture - Pending Sign Out <ROSLYN Angel - Last Filed: 04/23/21 16:08> Sign Out Data: Sign Out Comment: Sent to the ER for low H&H and potentially altered. reports that she is at her baseline mental status. She is tachycardic and hypertensive. Have initiated a cardiac, septic work-up and obtain a type and screen. Heme-negative rectal examination. Difficult IV access, anesthesia consulted to obtain access. Patient receiving IV fluids, Protonix, Zantac. Reports abdominal pain, nausea, vomiting since over the weekend, obtaining CT abdomen and pelvis with IV contrast. Last updated by Rory Kohli PA at 04/22/21 15:50 PAWSS <ROSLYN Angel - Last Filed: 04/23/21 16:08> Have you Been Recently Intoxicated or Drunk Within the Last 30 days?: No Have you Ever Experienced Previous Episodes of Alcohol Withdrawal?: No Have you ever Experienced Withdrawal Seizures?: No Have you ever Experienced Delirium Tremens(DT)s?: No Have you ever undergone Alcohol Rehabilitation Treatment (i.e, inpt ot outpatient treatment programs)?: No Have you ever Experienced Blackouts?: No Have you ever Combined Alcohol with other Downers within the last 90 days?: No Have you ever Combined Alcohol with any other Substance of Abuse during the last 90 days?: No Positive Blood Alcohol level on Presentation? [PCS.BAL]: No Evidence of Increased Autonomic Activity (i.e. HR>120, tremor, sweating, agitation, nausea)?: No Result: 0
--- NOTE | 2021-04-22 14:30 | DI.RAD_ITS ---
Exam(s) XR PORTABLE CHEST AP EXAM: XR PORTABLE CHEST AP CLINICAL HISTORY: tachy, abd pain. TECHNIQUE: 2D digital imaging was performed. COMPARISON: CR XR PORTABLE CHEST AP from 03/04/2021 FINDINGS: Chest leads in place. Heart size normal. The mediastinum is not widened. Some infiltrate is noted in the left lower lobe retrocardiac region. Also platelike atelectasis both lung bases. Mild blunting of the right costophrenic angle may indicate a small pleural effusion. IMPRESSION: Mild left lower lobe infiltrate. Probable pleural effusion. DATA REPOSITORY: RADIATION DOSE DELIVERED: All CT scans at this facility use at least one of these dose optimization techniques: automated exposure control; mA and/or kV adjustment per patient size (includes targeted e xams where dose is matched to clinical indication); or iterative reconstruction.
--- NOTE | 2021-04-22 14:30 | DI.CT_ITS ---
Exam(s) CT ABDOMEN PELVIS W EXAM: CT ABDOMEN PELVIS W CLINICAL HISTORY: abd pain n/v. TECHNIQUE: Imaging Protocol: Axial computed tomography images with coronal and sagittal reformatted images were created and reviewed CONTRAST MATERIAL: Intravenous: Omnipaque 100cc Oral: None COMPARISON: CT CT ABDOMEN PELVIS WO from 03/03/2021 FINDINGS: Images of this study are degraded by motion artifact. VISUALIZED LUNG BASES: There is a small-moderate sized bilateral pleural effusions which have slightl y increased in size from prior study.. ABDOMEN: Is diffuse circumferential thickening of the visualized lower esophagus-junction now evident. Endosc opy recommended LIVER: There is a 10 x 9 millimeter benign-appearing small cyst in the superior aspect of the right h epatic lobe evident on this contrast infused study. No ominous focal hepatic lesions. GALLBLADDER/BILIARY: No obvious gallbladder pathology. CBD is not dilated. PANCREAS: Pancreatic head and neck appear unremarkable. Pancreatic tail is difficult to assess due t o some motion artifact and volume averaging with the stomach on the axial images. Pancreatic duct is not dilated. SPLEEN: Spleen is not enlarged. No obvious intrasplenic lesions. Splenic and portal veins are paten t. ADRENALS: There are no significant adrenal masses. KIDNEYS:No cysts evident. No solid renal masses. No calculi nor hydronephrosis.. ABDOMINAL AORTA: The abdominal aorta is not enlarged. There is stenotic narrowing of the right commo n iliac artery noted. External iliac artery is not stenotic. No aneurysm of the iliac vessels evide nt. LYMPH NODES:There is no retroperitoneal nor paraaortic adenopathy. ABDOMINAL WALL: No evidence of significant anterior abdominal wall nor inguinal hernia. GI: There is no evidence of bowel obstruction, free air, nor abscess. PELVIS: GI: No evidence of obvious appendicitis.No evidence of sigmoid diverticulitis. LYMPH NODES: There is no intrapelvic nor inguinal adenopathy. REPRODUCTIVE: Uterus is surgically absent. No obvious abnormal adnexal masses. No obvious free flui d in the pelvis. URINARY BLADDER: Unremarkable, but limited by motion OSSEOUS: No obvious significant osseous lesions. IMPRESSION: 1. Examination is somewhat limited by motion artifact. However, there is abnormal circumferential th ickening of the lower esophagus wall and endoscopy is recommended to rule out malignancy of the esoph oswaldo. Small hiatal hernia also noted. 2. Uterus is surgically absent. No obvious abnormal adnexal masses. No free fluid. 3. Other findings as above. RADIATION DOSE DELIVERED: 1,545.34mGy.cm Total DLP DATA REPOSITORY: All CT scans at this facility are submitted to the National Radiology Data Registry (NRDR) Dose Index Registry (DIR) with the [employer] (ACR). RADIATION OPTIMIZATION: All CT scans at this facility use at least one of these dose optimization te chniques: automated exposure control; mA and/or kV adjustment per patient size (includes targeted exa ms where dose is matched to clinical indication); or iterative reconstruction.
--- NOTE | 2021-04-22 15:07 | W.ANESVAS ---
Midline Placement Date Performed: 04/22/21 Procedure Time: 14:40 Requesting Provider: Rory Kohli Procedure Location: Emergency Department Sedation Given (Indicate Dose Given): No Sedation given Patient Mental Status: Awake Sterility: Hand Hygiene, Surgical Cap, Surgical Mask and Chlorhexidine Laterality: Left Insertion Site: Brachial Midline Device: PowerGlide Pro 20G Catheter Length: 10 cm Midline Procedure Procedure: 1% Lidocaine to skin and subcutaneous tissue with 25g needle, Vessel accessed with catheter over needle and Guidewire placed with ease Dressing: Tegaderm Applied and Statlock Applied Blood Return: Present Flushes: Easily Ultrasound: Sterile probe cover and gel used Ultrasound Image Saved?: Yes Number of Attempts (See previous attempts in note section): 1 Procedure Tolerated: No Complications Procedure Outcome: Successful Performed By: Cirilo Vargas
[2021-04-22] MEDS: Ondansetron 4 MG/2 ML VIAL IVP (15:39)
[2021-04-22] MEDS: Pantoprazole 40 MG VIAL 80 MG IVP (15:39)
[2021-04-22 15:42] LABS: Lactate 1.8 mmol/L (0.6-1.4)
[2021-04-22 15:55] LABS: Source Nasal/Nares
[2021-04-22] MEDS: FAMOTIDINE 20 MG/50 ML BAG 100 MG IVPB (15:56)
[2021-04-22 15:59] LABS: Absolute Basophil Count 0.04 10^3/uL (0.0-0.2); Absolute Eosinophil Count 0.02 10^3/uL (0.0-0.7); Absolute Lymphocyte Count 1.96 10^3/uL (1.2-3.4); Basophils % 0.2; Eosinophils % 0.1; HCT 28.9 % (36.0-46.0); HGB 8.9 g/dL (11.2-15.7); Immature Grans % 1.1; Lymphocytes % 10.4; MCH 28.6 pg (27.0-33.0); MCHC 30.8 % (32.0-36.0); MCV 92.9 fL (80-95); MPV 8.9 fL (8.0-11.0); Monocytes % 7.4; Neutrophils % 80.8; Nucleated RBC 0 %; Platelet Count 473 10^3/uL (130-400); RBC 3.11 10^6/uL (3.93-5.22); RDW 15.5 % (11.7-14.6); RDW-SD 52.8 fL; WBC 18.81 10^3/uL (4.4-10.8)
[2021-04-22 16:02] LABS: Absolute Monocyte Count 1.39 10^3/uL (0.1-0.8)
[2021-04-22] MEDS: Lactated Ringers 1,000 ML 1000 ML IV (16:12)
[2021-04-22 16:17] LABS: PTT Activated 24.3 sec (21.0-27.5); Prothrombin Time 10.2 sec (9.3-11.0)
[2021-04-22 16:24] LABS: ALT 9 U/L (14-59); AST 12 U/L (15-37); Albumin 2.4 g/dL (3.4-5.0); Alkaline Phosphatase 66 U/L (46-116); Anion Gap 9.3 mmol/L (3-11); BUN 25 mg/dL (7-18); Bilirubin, Total 0.2 mg/dL (0.2-1.0); CO2 24.7 mmol/L (21.0-32.0); CREATININE 1.3 mg/dL (0.55-1.02); Calcium 10.6 mg/dL (8.5-10.1); Chloride 97 mmol/L (98-107); Estimated GFR 41.78 (mL/min/1.73m2); Glucose 125 mg/dL (74-106); Magnesium 2.2 mg/dL (1.8-2.4); Potassium 4.6 mmol/L (3.5-5.1); Sodium 131 mmol/L (136-145); Total Protein 6.5 g/dL (6.4-8.2); Troponin I < 50 ng/L (<or=60)
[2021-04-22 16:33] LABS: Lipase 67 U/L (73-393); Procalcitonin 0.4 ng/mL
[2021-04-22 16:43] LABS: COVID-19 PCR Negative (Negative)
[2021-04-22] MEDS: Calcium Carbonate *TUMS* 500 MG CHEW 1000 MG PO (16:44)
[2021-04-22 16:47] LABS: ETHANOL BLOOD < 3.0 mg/dL (<10)
[2021-04-22] MEDS: Omnipaque 350 MG/ML 100 ML BTL IV (17:53)
[2021-04-22] MEDS: Normal Saline Flush 10 ML SYR IVP (17:54)
[2021-04-22] MEDS: Normal Saline 1,000 ML 1000 ML IV (18:13)
--- NOTE | 2021-04-22 18:15 | RT.EKG_ITS ---
APPROVED REPORT Exam: Resting ECG Reason for Exam: 2nd ekg Patient Location: E HR:105 bpm ECG Measurements Heart Rate 105 AXIS NC 131 P 66 QRSd 82 QRS 77 QT 339 T 45 QTc 448 Conclusion Sinus tachycardia PVCs Low voltage, extremity leads.
--- NOTE | 2021-04-22 18:17 | DI.VRAD_ITS ---
PROCEDURE INFORMATION: Exam: CT Abdomen And Pelvis With Contrast Exam date and time: 04/22/2021 14:31 Age: 60 years old Clinical indication: Other: Abd pain n/v TECHNIQUE: Imaging protocol: Computed tomography of the abdomen and pelvis with contrast. Radiation optimization: All CT scans at this facility use at least one of these dose optimization techniques: automated exposure control; mA and/or kV adjustment per patient size (includes targeted exams where dose is matched to clinical indication); or iterative reconstruction. Contrast material: OMNIPQUE 350; Contrast volume: 100 ml; Contrast route: INTRAVENOUS (IV); COMPARISON: CT ABDOMEN PELVIS WO 03/03/2021 13:57 FINDINGS: Pleural spaces: Small bilateral pleural effusions are slightly increased in volume. Adjacent probably compressive atelectasis also increased appearing [id number]. Mediastinal space: Redemonstration of moderate wall thickening of the distal esophagus in association with a small hiatal hernia. Surrounding edema. Esophageal wall thickening appears probably slightly increased. Liver: Benign-appearing hepatic cyst. No hepatic masses. Gallbladder and bile ducts: Possible small gallstone not optimally assessed. No significant biliary dilation or radiopaque stones in the biliary tree. Pancreas: No ductal dilation. No masses. Spleen: No splenomegaly or focal lesions. Adrenal glands: No mass. Kidneys and ureters: No renal masses or hydronephrosis bilaterally. Stomach and bowel: Motion artifact affects assessment of the small bowel and colon. No gross colitis. Moderate to large stool burden. No focal pathology in the small bowel. Appendix: No evidence of appendicitis. Intraperitoneal space: No free air. No significant fluid collection. Vasculature: Chronic appearing stenosis right common iliac artery. No aortic aneurysm. Lymph nodes: No significantly enlarged lymph nodes. Urinary bladder: Unremarkable as visualized. Reproductive: Hysterectomy. Bones/joints: No displaced fracture allowing for motion. Soft tissues: No suspicious lesions. IMPRESSION: 1. Redemonstration of moderate wall appearing distal esophagitis in association with a small hiatal hernia. 2. Incidental findings as described. Dictated and Authenticated by: Angie Mak MD. Ordering:LOPEZ Valadez MD
--- NOTE | 2021-04-22 18:18 | DI.VRAD_ITS ---
PROCEDURE INFORMATION: Exam: XR Chest Exam date and time: 04/22/2021 14:31 Age: 60 years old Clinical indication: Other: Tachy, abd pain TECHNIQUE: Imaging protocol: XR of the chest. Views: 1 view. COMPARISON: CR XR PORTABLE CHEST AP 03/04/2021 10:57 FINDINGS: Lungs: Bilateral dependent compressive atelectasis favored over pneumonia. Pleural spaces: Known small bilateral pleural effusions better assessed on same day CT. No pneumothorax. Heart/Mediastinum: No cardiomegaly. Bones/joints: No acute fracture. IMPRESSION: 1. Known small bilateral pleural effusions better assessed on same day CT. 2. Bilateral dependent compressive atelectasis favored over pneumonia. Dictated and Authenticated by: Angei Mak MD. Ordering:LOPEZ Valadez MD
[2021-04-22 18:43] LABS: Bilirubin Negative (Negative); Blood Negative (Negative); Clarity Sl Cloudy (Clear); Glucose 100 mg/dL (Negative); Ketones Negative (Negative); Leukocyte Esterase Negative (Negative); Nitrite Negative (Negative); Specific Gravity 1.015 (1.005-1.025); Urobilinogen 0.2 EU/dL (Up TO 0.2)
[2021-04-22 18:50] LABS: Bacteria Moderate HPF (Negative); C & S Indicated? No; Crystals Negative HPF (Negative); RBC 0-2 HPF (0-2)
[2021-04-22 18:51] LABS: Epithelial Cells Many HPF (Negative)
[2021-04-22 19:40] LABS: Troponin I < 50 ng/L (<or=60)
== END 2021-04-22 20:17 | disposition home or self-care (01) ==
PROVIDERS: Physician Assistant; Emergency Provider Physician Assistant; PCP Nurse Practitioner Family
DX: D64.9 Anemia, unspecified (principal); D72.829 Elevated white blood cell count, unspecified; J90 Pleural effusion, not elsewhere classified; K20.90 Esophagitis, unspecified without bleeding; Z20.822 Contact with and (suspected) exposure to COVID-19; R00.0 Tachycardia, unspecified; N17.9 Acute kidney failure, unspecified; I10 Essential (primary) hypertension
CPT/HCPCS: 36415; 80053; 83690; 84145; 86850; 86900; 86901; 87040; 87635; 93005; 96361; 96365; 96375; 99285; 36410; 71045; 74177; 80320; 81003; 81015; 83605; 83735; 84484; 85025; 85610; 85730; 93010; J2405; J3490

== ENCOUNTER 2021-05-07 00:14 | Outpatient (CLI) | payer MEDICAID, SELFPAY ==
--- NOTE | 2021-05-07 10:45 | DI.NM_ITS ---
Exam(s) HI HEPATOBILIARY SCAN GRP EXAM: HI HEPATOBILIARY SCAN GRP CLINICAL HISTORY: GALLSTONES K80.20 NAUSEA AND VOMITING R11.2. TECHNIQUE: Injected dose: 5 mCi Tc-99 mebrofenin CCK was not injected because this patient has apparently known gallstones by recent ultrasound COMPARISON: [facility] GA[facility]IC EMPTYING from 03/07/[address] ABDOMEN PELVIS W from 04/22/2021 FINDINGS: There is normal uptake and excretion of radiopharmaceutical by the liver and activity is seen within the gallbladder lumen starting at approximately 13 minutes. IMPRESSION: There is no obstruction of the cystic duct .
== END 2021-05-07 00:34 ==
PROVIDERS: PCP Nurse Practitioner Family; Visit Provider Nurse Practitioner Family
DX: K80.20 Calculus of gallbladder without cholecystitis without obstruction (principal); R11.2 Nausea with vomiting, unspecified
CPT/HCPCS: 78227

== ENCOUNTER 2021-06-09 01:26 | Outpatient (CLI) | payer MEDICAID, SELFPAY ==
[2021-06-09 12:19] LABS: Source Nasal/Nares
[2021-06-09 14:32] LABS: COVID-19 PCR Negative (Negative)
== END 2021-06-09 01:27 | disposition home or self-care (01) ==
LOC: LBO 01:26
PROVIDERS: PCP Nurse Practitioner Family; Visit Provider Surgery
DX: Z20.822 Contact with and (suspected) exposure to COVID-19 (principal); Z01.818 Encounter for other preprocedural examination
CPT/HCPCS: 87635

== ENCOUNTER 2021-06-10 10:46 | Inpatient (IN) | payer MEDICAID, SELFPAY ==
--- NOTE | 2021-06-09 21:52 | PDOC.DSDIS_ITS ---
Discharge Plan Disposition Patient Disposition: HOME Condition: Good Discharge Details Reason For Visit: stomach and colon scope Attending Provider: Merly Purcell Primary Care Provider: Ana Gillespie Home Meds and New Rx's Prescriptions: No Action polyethylene glycol 3350 17 gram/dose powder 238 g PO ONCE Qty: 238 RF: 0 bisacodyl [Dulcolax (bisacodyl)] 5 mg tablet,delayed release (DR/EC) 5 mg PO ONCE Qty: 4 RF: 0 glyburide 5 mg tablet 15 mg PO DAILY RF: 0 insulin aspart U-100 [Novolog Flexpen U-100 Insulin] 100 unit/mL (3 mL) insulin pen 5 unit subcut TID RF: 0 acetylcysteine 600 mg capsule 1,200 mg PO BID RF: 0 divalproex [Depakote ER] 250 mg tablet extended release 24 hr 250 mg PO DAILY RF: 0 bismuth subsalicylate [Pepto-Bismol] 262 mg/15 mL suspension 524 mg PO DAILY PRNRF: 0 pantoprazole 40 mg Tablet,Delayed Release (Dr/Ec) 80 mg PO DAILY RF: 0 olanzapine 5 mg tablet 10 mg PO HS RF: 0 divalproex 500 mg tablet extended release 24 hr 500 mg PO DAILY RF: 0 Humulin N NPH Insulin KwikPen 100 unit/mL (3 mL) insulin pen 40 unit SUBCUT HS RF: 0 quetiapine 100 mg tablet 200 mg PO HS RF: 0 Discharge Instructions Additional Instructions: DSU Colonoscopy Post- Op Instructions Instructions for Everyone who is given Anesthesia: For your safety, please do the following for the next twenty-four (24) hours: *Do Not operate a motor vehicle (car, truck, motorcycle, etc.) *Do Not drink alcoholic beverages or use any recreational drugs for the first 24 hours or while taking pain medications. The medications in your body may have a reaction that can be dangerous. *Do Not make any important decisions or sign any important papers. Findings: Follow up: 1. No lifting over 20 pounds or strenuous activity for the first 24 hours after your procedure. After 24 hours there are no restrictions on your activity but you may feel fatigued for a few days. 2. After you arrive home you may have a light meal and return to your normal diet as you can tolerate it without feeling sick to your stomach. 3. You may have a bloated, gaseous feeling in your belly (abdomen) after a colonoscopy. Passing gas and belching will help. Walking or lying down on your left side with your knees flexed may relieve the discomfort. Call the office at [phone] (Office) or [phone] (Hospital) right away if you notice any of the following: a.Vomiting of blood or ?coffee ground stools?. b.Rectal bleeding 1Tbsp, blood clots or continuous bleeding. c.Severe belly (abdominal) pain. d.A hard distended belly (abdomen) and an inability to pass gas. 4. Please don?t expect to have a normal BM (bowel movement) for 2-3 days after your procedure. 5. If there are questions regarding the findings of your procedure, please contact your doctor 6. If you are unable to contact your doctor with a problem, contact the hospital at [phone]. 7. Continue all your regular medications unless directed otherwise. I understand the above instructions and have no questions. Signature of Patient or Adult Escort Name of Responsible Adult Escort Signature of Nurse Date/Time Activity:: see above Diet:: Carb Counting Discharge Orders Discharge Orders: Discharge Order (Routine); Ordered 06/09/21 Ordered By: Merly Purcell DS: Diagnosis Discharge Diagnosis (1) Chronic iron deficiency anemia: Status: Acute (2) Chronic diarrhea: Status: Acute (3) Esophagitis: Status: Acute (4) ETOH abuse: Status: Chronic (5) Poorly controlled diabetes mellitus: Status: Acute (6) Farrell's esophagus: (7) Bipolar 1 disorder: Status: Acute (8) Gastroparesis: Status: Acute (9) Atrial flutter: Status: Resolved
--- NOTE | 2021-06-09 21:54 | W.COLOREPORT ---
Colonoscopy Report Date of procedure: 06/10/21 Pre-op diagnosis general: Iron deficiency anemia and documented weight loss Post-op diagnosis procedure note: other (polypx4) Surgeon: Merly Purcell Anesthesia Type: General:No Airway Pathology: other Complications: None Disposition: same day Prep: Miralax/Dulcolax Retraction Time: 12 Procedure Description: After informed consent was obtained the patient was taken to the procedure room and placed in a left decubitous position. Monitors were applied and a time out was done. The patients name, date of , procedure, allergies to medications and metal in their body was reviewed. The patient was then sedated. Once sedated and comfortable a rectal exam was done. External exam was normal. Internal exam revealed a normal sphincter tone and no palpable masses. The scope was then introduced and retrofelexed. No internal hemorrhoids were identified. The scope was then advanced to the cecum w/out difficulty. The TI and appendiceal orifice were identified. The prep was BBPS-1 in all 4 portions of the colon. The scope was then slowly retracted over 12 minutes back into the rectum. Polyps were removed. She had a flat, 1 cm polyp at 70 cm that is removed with a hot snare. A clip was placed over the defect. The specimen was retrieved. There is no bleeding noted. She had x3 polyps at 20 cm. These are each 5 mm, flat polyps. They are removed with a cold biting forcep. She also had a small, flat, 5 mm polyp in the rectum. This is removed with cold biting forcep as well. All specimens are retrieved and no bleeding is noted. She has no diverticular disease. the scope was removed and the patient was woken up and taken back to Same day surgery in stable condition. The patient tolerated the procedure well and there were no immediate complications. Follow up: The patient should follow up in 5years, path pending, unless they develop changes in bowel habits or other new gastrointestinal complaints.
--- NOTE | 2021-06-09 21:56 | ENDO_ITS ---
Date of service: 06/10/21 Endoscopy Report DATE OF PROCEDURE: 06/10/21 PRE-OP DIAGNOSIS: Iron deficiency anemia/documented weight loss/ GERD and Covington's/hx smokin POST-OP DIAGNOSIS: other (severe esophagtitis/esophageal ulcer/hx of covington's) SURGEON: Merly Purcell ANESTHESIA TYPE: General:No Airway ESTIMATED BLOOD LOSS: 5 PATHOLOGY: other COMPLICATIONS: None DISPOSITION: same day PROCEDURE DESCRIPTION: After informed consent was obtained the patient was take to the procedure room and placed in a supine position. Monitors were applied and a time out was done. The patients name, date of , procedure type, allergies to medications and metal in their body was reviewed. A bite block was placed and the patient was sedated. Once sedated and comfortable the gastroscope was advanced through the oropharynx which was grossly normal into the esophagus. The proximal esophagus is nl. In the midesophagus she has a large ulceration- 2cm in size. Bx are done of this area. The mid dand distal portions of the esophagus are very erthymatous, firable, and inflammed. In the distal esophagus there was noted erythema and edema with ulceration. 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 This was biopsied at 35 cm / 34 cm/33 cm and 32 cm. The mid esophagus was biopsied at 25 cm/23 cm / 20 cm. There are no varices, strictures, or diverticula noted. The scope was advanced into the stomach and through the pylorus into the 3rd portion of the duodenum. The duodenum was noted to be nl Biopsies were done. The scope was retracted back into the stomach and biopsies were done to rule out H. pylori. Upon entering the stomach, there is noted to be at least 100 cc of fluid in the stomach. There is no undigested food. There are no ulcers within the body of the stomach. She has some mild gastritis and possibly some portal gastropathy noted within the stomach as well. Biopsies were taken. the scope was retroflexed. The cardia and fundus were noted to be normal. There is no hiatal hernia noted. The scope was retracted back into the esophagus and biopsies were done of the GE junction to rule out Covington's. The scope was removed and the patient was woken up and taken back to PACU in stable condition. Patient will be admitted for PPI therapy and close observation of her hemoglobin post biopsy. Patient states she adamantly had no solid food the day of bowel prepping. She states she had an nothing to drink since 8 PM Wednesday night. She had had a gastric emptying study in February. This was read as normal. Patient does have a long history of poorly controlled diabetes mellitus with A1c's being in the teens for greater than 5 years. I do suspect that her severe esophagitis is secondary to refluxing from undigested material that remains in her stomach due to delayed gastric emptying. We cannot put her on Reglan because of signi ficant interactions with other medications. I do feel that we should obtain a repeat gastric emptying study. The hospitalist service will be consulted for medical management of her diabetes. I did discuss this with the patient and her son.
[2021-06-10] VITALS (14 sets, daily range): BP systolic 113–169; BP diastolic 72–87; PULSE 69–115; RESP 14–18; TEMP 35.6–37.2; O2SAT 96–100; BMI 31.6
--- NOTE | 2021-06-10 07:10 | W.ANESPRE ---
General Info Date of Service Date Performed: 06/10/21 Height: 5 ft Weight: 73.482 kg Body Mass Index (BMI): 31.6 Surgical Procedure: Operation Date: 06/10/21 09:20 Proposed Procedures Side Surgeon p Colonoscopy/Gastroscopy Merly Purcell, DO Meds Allergies and Home Medications Allergies Allergy/AdvReac Type Severity Reaction Status Date / Time meperidine AdvReac gi upset Unverified 06/09/21 08:57 Home Medication Medication Instructions Recorded pantoprazole 80 mg PO DAILY 05/10/19 Humulin N NPH Insulin KwikPen 40 unit SUBCUT HS 03/04/21 divalproex 500 mg PO DAILY 03/04/21 olanzapine 10 mg PO HS 03/04/21 quetiapine 200 mg PO HS 04/22/21 acetylcysteine 600 mg capsule 1,200 mg PO BID cap 05/16/21 bismuth subsalicylate 262 mg/15 mL 524 mg PO DAILY PRN ml 05/16/21 oral suspension divalproex 250 mg tablet,extended 250 mg PO DAILY tab 05/16/21 release 24 hr glyburide 5 mg tablet 15 mg PO DAILY tab 05/16/21 insulin aspart U-100 100 unit/mL 5 unit SUBCUT TID 05/16/21 (3 mL) subcutaneous pen bisacodyl 5 mg tablet,delayed 5 mg PO ONCE #4 tab 05/23/21 release polyethylene glycol 3350 17 238 g PO ONCE #238 g 05/23/21 gram/dose oral powder Current Visit Medications: Current Medications Generic Name Dose Route Start Last Admin Trade Name Freq PRN Reason Stop Dose Admin Hyoscyamine Sulfate 0.125 mg 06/09/21 13:13 Hyoscyamine 0.125 Mg Sl/Oral/Chew SL DIRECTED PRN Ringer's Solution 1,000 mls @ 80 mls/hr 06/10/21 06:00 IV 07/07/21 23:59 INFUSION [facility] IV Miscellaneous Supplies 1 each 06/10/21 06:00 Iv Access IV 07/07/21 23:59 DIRECTED [facility] Ondansetron HCl 4 mg 06/09/21 13:13 Ondansetron 4 Mg/2 Ml Vial IVP Q4H PRN PRN Nausea / Vomiting Sodium Chloride 0 ml 06/10/21 06:00 Normal Saline Flush 10 Ml Syr IV 07/07/21 23:59 PRN PRN Sodium Chloride 0 ml 06/10/21 06:00 Normal Saline 10 Ml Vial IJ 07/07/21 23:59 DIRECTED PRN Sterile Water 0 ml 06/10/21 06:00 Water,Injection,Sterile 10 Ml Vial IJ 07/07/21 23:59 DIRECTED PRN PFSH Active Problems Active Problems: Problem Status Onset Code Chronic iron deficiency anemia D50.9 Low hemoglobin D64.9 Chronic diarrhea K52.9 Nausea & vomiting R11.2 Black tarry stools K92.1 Anemia D64.9 Leukocytosis D72.829 Pleural effusion J90 Esophagitis K20.90 Hypokalemia E87.6 ETOH abuse F10.10 Ventral hernia K43.9 Poorly controlled diabetes mellitus E11.65 Dehydration with hyponatremia E86.0, E87.1 Chronic pancreatitis due to acute alcohol intoxication K86.0, F10.929 MARILIN (acute kidney injury) N17.9 Depression F32.9 Bipolar 1 disorder F31.9 Cholelithiasis K80.20 Gastroparesis K31.84 Discharge planning issues Z02.9 DVT prophylaxis Z29.9 Atrial flutter I48.92 Sepsis A41.9 CAP (community acquired pneumonia) J18.9 Lactic acidosis E87.2 Pseudohyponatremia R79.89 Toxic metabolic encephalopathy G92.8 Hyperosmolar nonketotic coma in diabetes E11.01 Confusion R41.0 Medical History Medical History (Updated 06/09/21 @ 21:53 by Merly Purcell DO) Alcohol abuse Anxiety Farrell's esophagus Diabetes History of pilonidal cyst Surgical History Surgical History History of section History of hysterectomy History of tonsillectomy Tobacco Smoking/Tobacco Use Status: Former Tobacco Use Alcohol Alcohol Intake: former Substance Use Substance use: Never Substance use type: does not use Details: pt. denies history of ETOH abuse Vital Signs and Lab Results Lab Results Result Diagrams: 06/10/21 08:00 06/10/21 08:00 Blood Type / Crossmatch: No Data to Display Complete Blood Count: No Data to Display Complete Metabolic Panel: No Data to Display Liver Function Panel: No Data to Display Coagulation Panel: No Data to Display Cardiac Panel: No Data to Display Arterial Blood Gas: No Data to Display Venous Blood Gas: No Data to Display Pancreas Panel: No Data to Display Thyroid Panel: No Data to Display Infectious Disease: Coronavirus (COVID-19)(PCR) Negative (Negative) 06/09/21 11:16 06/09/21 Coronavirus 2019 Source Nasal/Nares 06/09/21 11:16 06/09/21 Blood Cultures: No Data to Display Toxicology Panel: No Data to Display Anesthesia Assessment and Plan Anesthesia History Personal History: No History of Anesthesia Complications Family History: Family History Unknown Exercise Tolerance Exercise Tolerance: Metabolic Equivalents>4 Pertinent Negatives Pertinent Negatives: No Symptoms of GERD Cardiac & Pulmonary Exam Cardiac Exam: Normal S1/S2 Heart Sounds Pulmonary Exam: Clear Bilateral Breath Sounds Implantable Cardiac Device Does patient have a Pacemaker or an ICD?: No Airway Exam Known Difficult Airway: No Mallampati Class: 2 Mouth Opening: Normal (> 3cm) Thyromental Distance: Greater than 3 cm Neck Range of Motion: Full ROM Neck Circumference: Normal Teeth Condition: Normal Dentition ASA Classification ASA Score: ASA 2 Emergency Case?: No NPO Status NPO Status: NPO Clears >2 hours, Solids >8 hours Anesthesia Plan Resuscitation Status: Full Code Anesthesia Technique: General Anesthesia Airway Planned: Natural Airway Monitors Used: Standard Monitors
[2021-06-10 08:45] LABS: Abs Immature Grans 0.02 10^3/uL (0.0-0.06); Absolute Basophil Count 0.06 10^3/uL (0.0-0.2); Absolute Eosinophil Count 0.12 10^3/uL (0.0-0.7); Absolute Lymphocyte Count 1.96 10^3/uL (1.2-3.4); Absolute Monocyte Count 0.69 10^3/uL (0.1-0.8); Absolute Neutrophil Count 3.61 10^3/uL (1.2-6.7); Basophils % 0.9; Eosinophils % 1.9; HCT 46.3 % (36.0-46.0); Immature Grans % 0.3; Lymphocytes % 30.3; MCH 25.1 pg (27.0-33.0); MCHC 30.2 % (32.0-36.0); MCV 83.1 fL (80-95); MPV 9.4 fL (8.0-11.0); Monocytes % 10.7; Neutrophils % 55.9; Nucleated RBC 0 %; Platelet Count 280 10^3/uL (130-400); RBC 5.57 10^6/uL (3.93-5.22); RDW 15.2 % (11.7-14.6); RDW-SD 46.1 fL; WBC 6.46 10^3/uL (4.4-10.8)
[2021-06-10] MEDS: Lactated Ringers 1,000 ML 80 ML IV (08:51)
[2021-06-10 08:52] LABS: Magnesium 1.9 mg/dL (1.8-2.4)
[2021-06-10 09:01] LABS: ALT 11 U/L (14-59); AST 8 U/L (15-37); Albumin 3.2 g/dL (3.4-5.0); Alkaline Phosphatase 75 U/L (46-116); Anion Gap 9.6 mmol/L (3-11); BUN 6 mg/dL (7-18); Bilirubin, Total 0.2 mg/dL (0.2-1.0); CO2 30.4 mmol/L (21.0-32.0); CREATININE 0.8 mg/dL (0.55-1.02); Chloride 102 mmol/L (98-107); GGT 11 U/L (5-55); Glucose 121 mg/dL (74-106); Sodium 142 mmol/L (136-145); Total Protein 7.5 g/dL (6.4-8.2)
[2021-06-10 09:02] LABS: INR 0.9 (0.9-1.1); Prothrombin Time 9.4 sec (9.3-11.0)
[2021-06-10 09:30] LABS: Iron 37 ug/dL (50-170); Total Iron Binding Capacity 354 ug/dL (250-450); Transferrin Sat 10 % (15-50)
--- NOTE | 2021-06-10 09:41 | BOWEL_PTH ---
PATIENT: Jennifer Irving LOC: [facility]#:[id number] AGE/SX: 61/F ROOM: RE06/10/[address]: Merly Purcell : 1960 BED: A DIS: 06/11/2021 SPEC #: [id number] RECD: 06/10/21 12:45 STATUS: CATERIAN REQ #: [id number] JAI: 06/10/21 09:[address]: Merly Purcell DEPT: Surgical Specimen RECD BY: Estephania Felix ENTERED: 06/10/21 12:53 SP TYPE: Bowel OTHR DR: Ana Gillespie Tissues: 1 - BIOPSY BOWEL 2 - BIOPSY BOWEL 3 - STOMACH BIOPSY 4 - STOMACH BIOPSY 5 - ESOPHAGUS BIOPSY 6 - ESOPHAGUS BIOPSY 7 - ESOPHAGUS BIOPSY 8 - ESOPHAGUS BIOPSY 9 - ESOPHAGUS BIOPSY 10 - ESOPHAGUS BIOPSY 11 - ESOPHAGUS BIOPSY 12 - BIOPSY BOWEL 13 - BIOPSY BOWEL 14 - BIOPSY BOWEL Procedures: GROSS AND MICRO LEVEL 4 Comments: [id number]
[2021-06-10 09:48] LABS: Ferritin 34 ng/mL (8-252); Folate 18.9 ng/mL (8.6-20.0); Vitamin B12 654 pg/mL (193-986)
--- NOTE | 2021-06-10 10:54 | W.ANESVAS ---
Midline Placement Date Performed: 06/10/21 Procedure Time: 10:40 Requesting Provider: Merly Purcell Procedure Location: Operating Room Sedation Given (Indicate Dose Given): No Sedation given Patient Mental Status: Performed under general anesthesia Sterility: Hand Hygiene, Surgical Cap, Surgical Mask and Alcohol Laterality: Right Insertion Site: Basilic Midline Device: PowerGlide Pro 20G Catheter Length: 10 cm Midline Procedure Procedure: Vessel accessed with catheter over needle and Guidewire placed with ease Dressing: Tegaderm Applied and Statlock Applied Blood Return: Present Flushes: Easily Ultrasound: Sterile probe cover and gel used Ultrasound Image Saved?: No Number of Attempts (See previous attempts in note section): 1 Procedure Tolerated: No Complications Procedure Outcome: Successful Procedure Comment:: performed while still under GA for colo/EGD Performed By: alejandro
--- NOTE | 2021-06-10 10:59 | HPE_ITS ---
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: Status: Acute (10) Depression: Status: Chronic (11) Bipolar 1 disorder: Status: Acute (12) Gastroparesis: Status: Acute [facility] All Active Problems (Updated 06/10/21 @ 11:02 by Merly Purcell DO) Farrell's 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 (Acute) Erosive esophagitis (Acute) Esophageal ulcer with bleeding (Acute) Chronic iron deficiency anemia (Acute) Chronic diarrhea (Acute) Nausea & vomiting (Acute) Black tarry stools (Acute) Leukocytosis (Acute) Pleural effusion (Acute) ETOH abuse (Chronic) Ventral hernia (Acute) Poorly controlled diabetes mellitus (Acute) Chronic pancreatitis due to acute alcohol intoxication (Acute) Depression (Chronic) Bipolar 1 disorder (Acute) Cholelithiasis (Chronic) Gastroparesis (Acute) Medical History (Updated 06/10/21 @ 11:02 by Merly Prucell DO) Alcohol abuse Anxiety Farrell's esophagus Diabetes History of pilonidal cyst Surgical History History of section History of hysterectomy History of tonsillectomy Social History Smoking/Tobacco Use Status: Former Tobacco Use Quit Date: 04/09/19 Smoking risk assessment performed?: Yes Alcohol Intake: former Drug use: Never Substance use type: does not use Details: pt. denies history of ETOH abuse Do you feel safe at home: Yes Do you feel safe in your relationship?: Yes Additional Social history: Unable to asess as spouse Rogelio in the room. Meds Allergies and Home Medications Allergies Allergy/AdvReac Type Severity Reaction Status Date / Time meperidine AdvReac gi upset Unverified 06/09/21 08:57 Home Medications Medication Instructions Recorded Confirmed Type pantoprazole 80 mg PO DAILY 05/10/19 06/10/21 History Humulin N NPH Insulin KwikPen 40 unit SUBCUT HS 03/04/21 06/10/21 History divalproex 500 mg PO DAILY 03/04/21 06/10/21 History olanzapine 10 mg PO HS 03/04/21 06/10/21 History quetiapine 200 mg PO HS 04/22/21 06/10/21 History acetylcysteine 600 mg capsule 1,200 mg PO BID cap 05/16/21 06/10/21 History bismuth subsalicylate 262 mg/15 mL 524 mg PO DAILY PRN ml 05/16/21 06/10/21 History oral suspension divalproex 250 mg tablet,extended 250 mg PO DAILY tab 05/16/21 06/10/21 History release 24 hr glyburide 5 mg tablet 15 mg PO DAILY tab 05/16/21 06/10/21 History insulin aspart U-100 100 unit/mL 5 unit SUBCUT TID 05/16/21 06/10/21 History (3 mL) subcutaneous pen bisacodyl 5 mg tablet,delayed 5 mg PO ONCE #4 tab 05/23/21 06/10/21 Rx release polyethylene glycol 3350 17 238 g PO ONCE #238 g 05/23/21 06/10/21 Rx gram/dose oral powder Results Labs Result diagrams: 06/10/21 08:40 06/10/21 08:40 Labs: Laboratory Results - last 24 hr 06/10/21 06/10/21 06/10/21 08:40 08:40 08:40 WBC RBC Hgb Hct MCV MCH MCHC RDW Plt Count MPV Immature Gran % Neutrophils % Lymphocytes % Monocytes % Eosinophils % Basophils % Nucleated RBC % Absolute Neutrophils Absolute Lymphocytes Absolute Monocytes Absolute Eosinophils Absolute Basophils PT INR Sodium 142 Potassium 4.0 Chloride 102 Carbon Dioxide 30.4 Anion Gap 9.6 BUN 6 L Creatinine 0.8 Estimated GFR/1.73 m2 >= 60.00 Glucose 121 H Calcium 10.0 Magnesium 1.9 Iron 37 L TIBC 354 Transferrin % Sat 10 L Ferritin 34 Total Bilirubin 0.2 GGT 11 AST 8 L ALT 11 L Alkaline Phosphatase 75 Total Protein 7.5 Albumin 3.2 L Vitamin B12 654 Folate 18.9 06/10/21 06/10/21 08:40 08:40 WBC 6.46 RBC 5.57 H Hgb 14.0 Hct 46.3 H MCV 83.1 MCH 25.1 L MCHC 30.2 L RDW 15.2 H Plt Count 280 MPV 9.4 Immature Gran % 0.3 Neutrophils % 55.9 Lymphocytes % 30.3 Monocytes % 10.7 Eosinophils % 1.9 Basophils % 0.9 Nucleated RBC % 0 Absolute Neutrophils 3.61 Absolute Lymphocytes 1.96 Absolute Monocytes 0.69 Absolute Eosinophils 0.12 Absolute Basophils 0.06 PT 9.4 INR 0.9 Sodium Potassium Chloride Carbon Dioxide Anion Gap BUN Creatinine Estimated GFR/1.73 m2 Glucose Calcium Magnesium Iron TIBC Transferrin % Sat Ferritin Total Bilirubin GGT AST ALT Alkaline Phosphatase Total Protein Albumin Vitamin B12 Folate Last Vital Signs Temp 36.7 C 06/10/21 08:20 Pulse 115 H 06/10/21 08:20 Resp 18 06/10/21 08:20 BP 146/87 H 06/10/21 08:20 Pulse Ox 99 06/10/21 08:20
--- NOTE | 2021-06-10 11:34 | W.ANESPOSTOP ---
Postoperative Evaluation Date, Time and Location Date Performed: 06/10/21 Time Performed: 11:34 Patient Location: Day Surgery Unit Vital Signs Most Recent Imported Vital Signs: Most Recent Vital Signs Temp Pulse Resp BP Pulse Ox 36.0 C L 74 16 169/79 H 99 06/10/21 11:16 06/10/21 11:16 06/10/21 11:16 06/10/21 11:16 06/10/21 11:16 Pain Score Most Recent Pain Score: Reporting pain of 5/10 right now, and tolerable. Assessment Mental Status: Awake (Alert & Oriented to Patient Baseline) Airway and Respiratory Function: Patent airway with normal (patient baseline) respiratory exam Cardiovascular Function: Hemodynamically Stable Hydration Status: Adequately Hydrated Nausea & Vomiting: No Nausea or Vomiting Pain: Pain is tolerable per patient Peripheral Nerve Block: Patient did not receive a nerve block
--- NOTE | 2021-06-10 12:02 | W.PM.HP.N ---
Date of service: 06/10/21 Time of Service: 12:02 Assessment and Plan Assessment and plan (1) Esophageal ulcer with bleeding: Status: Acute (2) Erosive esophagitis: Status: Acute Assessment and plan: Patient being admitted for IV protonix, will start sucralfate. Diabetic heart healthy diet Will consider repeating gastric emptying study Activity as tolerated Pulmonary toilet Will continue home medications -Patient seen and examined. Agree with above. I discussed the discussed with the patient and her son findings on endoscopy. We did discuss lifestyle habits. Patient did quit smoking back in February. Patient states she does not drink alcohol excessively. She is not on a daily ASA. She only takes aleve maybe 1-2/month. She does drink caffeinated beverages regularly. -She c/o epigastric pain and nausea. She feels bloated and has no appetite. Her swallowing problems do go back to prior to February admission as referenced below: -Date of service: 03/07/21 Time of Service: 15:41 Speech Therapy Recommendations Report ST Recommendations: AIR CARGO GROUND CREW SUPERVISOR attempting to contact this patient at noon over lunch meal. Per Nursing patient will be busy all afternoon in procedure and unable to be seen today. If patient has not been discharged, AIR CARGO GROUND CREW SUPERVISOR to follow-up on Wednesday. Per MD report of patient having difficulty swallowing pills, recommend to give meds crushed in puree (as able) until AIR CARGO GROUND CREW SUPERVISOR is able to see her. If discharged this , recommend outpatient speech referral to address swallowing if patient continues to have difficulty. -cont PPI/carafate as outpt. -repeat gastric emptying study -I d/w Dr. Sevilla BS management. -F/u as outpt to review Bx results. (3) Farrell's 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: Status: Acute (4) Nausea & vomiting: Status: Acute (5) Chronic diarrhea: Status: Acute (6) Black tarry stools: Status: Acute (7) ETOH abuse: Status: Chronic (8) Poorly controlled diabetes mellitus: Status: Acute (9) Chronic pancreatitis due to acute alcohol intoxication: Status: Acute (10) Depression: Status: Chronic (11) Bipolar 1 disorder: Status: Acute (12) Gastroparesis: Status: Acute History of Present Illness 60 y/o female with history of Barretts esophagus, ETOH abuse, poorly controlled DM type 2 (last HbA1c 11.8 2020) and anemia presented today for colonoscopy and EGD for further evaluation of anemia. Her last screening was performed at [facility] in 02/2021, which was unremarkable. She also had a EGD at that time, which was remarkable for a long segment of Barretts. She denies a family history of colon cancer. She denies any changes in bowel habits describing frequent constipation. She described epigastric pain with burping. She is only able to tolerate eating chicken noodle soup. Denies bloody or black tarry stools or diarrhea. She denies constitutional symptoms. Denies use of marijuana or any other recreational or illegal drugs. Of note patient's expressed concern for weight loss since last admission to the hospital. EGD was remarkable for severe esophagitis, esophageal ulcers and Farrell's esophagus. Moderate amount of gastric contents noted. Of note recent hospital admission in February of 2021 with BS of 1689 and aspiration pneumonia. Gastric emptying studies were performed at that time, which showed no evidence of delayed gastric emptying. Indeed, gastric emptying appears slightly quicker than normal. Review of Systems Constitutional Constitutional: Reports as per [facility] All Active Problems (Updated 06/10/21 @ 22:19 by Rory Sevilla) Farrell's 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 (Acute) Erosive esophagitis (Acute) Esophageal ulcer with bleeding (Acute) Chronic iron deficiency anemia (Acute) Chronic diarrhea (Acute) Nausea & vomiting (Acute) Black tarry stools (Acute) Leukocytosis (Acute) Pleural effusion (Acute) ETOH abuse (Chronic) Ventral hernia (Acute) Poorly controlled diabetes mellitus (Acute) Chronic pancreatitis due to acute alcohol intoxication (Acute) Depression (Chronic) Bipolar 1 disorder (Acute) Cholelithiasis (Chronic) Gastroparesis (Acute) Medical History Alcohol abuse Anxiety Farrell's esophagus Diabetes History of pilonidal cyst Surgical History History of section History of hysterectomy History of tonsillectomy Social History Smoking/Tobacco Use Status: Former Tobacco Use Quit Date: 04/09/19 Smoking risk assessment performed?: Yes Alcohol Intake: former Drug use: Never Substance use type: does not use Details: pt. denies history of ETOH abuse Do you feel safe at home: Yes Do you feel safe in your relationship?: Yes Additional Social history: Unable to asess as spouse Rogelio in the room. Meds Allergies and Home Medications Allergies Allergy/AdvReac Type Severity Reaction Status Date / Time meperidine AdvReac gi upset Unverified 06/09/21 08:57 Home Medications Medication Instructions Recorded Confirmed Type pantoprazole 80 mg PO DAILY 05/10/19 06/10/21 History Humulin N NPH Insulin KwikPen 40 unit SUBCUT HS 03/04/21 06/10/21 History quetiapine 200 mg PO HS 04/22/21 06/10/21 History acetylcysteine 600 mg capsule 1,200 mg PO BID cap 05/16/21 06/10/21 History bismuth subsalicylate 262 mg/15 mL 524 mg PO DAILY PRN ml 05/16/21 06/10/21 History oral suspension divalproex 250 mg tablet,extended 250 mg PO DAILY tab 05/16/21 06/10/21 History release 24 hr glyburide 5 mg tablet 15 mg PO DAILY tab 05/16/21 06/10/21 History insulin aspart U-100 100 unit/mL 5 unit SUBCUT TID 05/16/21 06/10/21 History (3 mL) subcutaneous pen bisacodyl 5 mg tablet,delayed 5 mg PO ONCE #4 tab 05/23/21 06/10/21 Rx release polyethylene glycol 3350 17 238 g PO ONCE #238 g 05/23/21 06/10/21 Rx gram/dose oral powder divalproex [Depakote ER] 500 mg PO BID 06/10/21 06/10/21 History olanzapine [Zyprexa] 10 mg PO HS 06/10/21 06/10/21 History Exam Const General: cooperative and healthy appearing Orientation: alert and oriented x3 Resp Effort & Inspection: normal respiratory effort, no audible wheezes and no cough Results Labs Result diagrams: 06/10/21 08:40 06/10/21 08:40 Labs: Laboratory Results - last 24 hr 06/10/21 06/10/21 06/10/21 08:40 08:40 08:40 WBC RBC Hgb Hct MCV MCH MCHC RDW Plt Count MPV Immature Gran % Neutrophils % Lymphocytes % Monocytes % Eosinophils % Basophils % Nucleated RBC % Absolute Neutrophils Absolute Lymphocytes Absolute Monocytes Absolute Eosinophils Absolute Basophils PT INR Sodium 142 Potassium 4.0 Chloride 102 Carbon Dioxide 30.4 Anion Gap 9.6 BUN 6 L Creatinine 0.8 Estimated GFR/1.73 m2 >= 60.00 Glucose 121 H Calcium 10.0 Magnesium 1.9 Iron 37 L TIBC 354 Transferrin % Sat 10 L Ferritin 34 Total Bilirubin 0.2 GGT 11 AST 8 L ALT 11 L Alkaline Phosphatase 75 Total Protein 7.5 Albumin 3.2 L Vitamin B12 654 Folate 18.9 06/10/21 06/10/21 08:40 08:40 WBC 6.46 RBC 5.57 H Hgb 14.0 Hct 46.3 H MCV 83.1 MCH 25.1 L MCHC 30.2 L RDW 15.2 H Plt Count 280 MPV 9.4 Immature Gran % 0.3 Neutrophils % 55.9 Lymphocytes % 30.3 Monocytes % 10.7 Eosinophils % 1.9 Basophils % 0.9 Nucleated RBC % 0 Absolute Neutrophils 3.61 Absolute Lymphocytes 1.96 Absolute Monocytes 0.69 Absolute Eosinophils 0.12 Absolute Basophils 0.06 PT 9.4 INR 0.9 Sodium Potassium Chloride Carbon Dioxide Anion Gap BUN Creatinine Estimated GFR/1.73 m2 Glucose Calcium Magnesium Iron TIBC Transferrin % Sat Ferritin Total Bilirubin GGT AST ALT Alkaline Phosphatase Total Protein Albumin Vitamin B12 Folate Last Vital Signs Temp 35.6 C L 06/10/21 11:45 Pulse 69 06/10/21 11:45 Resp 18 06/10/21 11:45 BP 152/78 H 06/10/21 11:45 Pulse Ox 99 06/10/21 11:45
[2021-06-10] MEDS: ACETAMINOPHEN 1,000 MG/100 ML BTL 400 MG IVPB ×2 (12:35→20:40)
[2021-06-10] MEDS: PANTOPRAZOLE 80 MG in Normal Saline 100 ML 10 MG IV (12:59)
[2021-06-10] MEDS: Lactated Ringers 1,000 ML 75 ML IV (13:00)
[2021-06-10] MEDS: Sucralfate 1 GM TAB PO ×3 (13:15→21:12)
[2021-06-10] MEDS: MORPHine 2 MG/ML SYR IVP ×2 (13:24→20:55)
[2021-06-10] MEDS: IRON SUCROSE COMPLEX 200 MG in Normal Saline 100 ML 400 MG IVPB (13:44)
[2021-06-10] MEDS: Normal Saline Flush 10 ML SYR IVP ×2 (13:44→20:40)
--- NOTE | 2021-06-10 16:27 | CHAPLAIN ---
Care Management asked if I would assist Jennifer with completing an Advance Directive. I brought a copy of one and told her we could meet later today to tomorrow morning to fill it out. Her Rogelio was with her.
--- NOTE | 2021-06-10 18:07 | W.MEDCONSULT ---
Date of service: 06/10/21 Time of Service: 18:07 Assessment and Plan Assessment and plan (1) Diabetes: Assessment and plan: For tonight I would cut her NPH dose in half since she will be n.p.o. for gastric emptying study. I have asked nursing to decrease her NPH down to 20 units at at bedtime. I agree with moderate dose NovoLog sliding scale. I have also ordered carbohydrate coverage at a rate of 1-10. As she will be n.p.o. after midnight she will only required as needed coverage based on sliding scale for elevated blood sugars. After midnight she should be put on a D5 LR drip to prevent hypoglycemia perioperatively. I have also discontinued her glyburide. As the patient is now requiring both basal and bolus insulin there is really no need for glyburide. Furthermore if her gastric emptying study does show that she has gastroparesis there is a disadvantage to her taking a long-acting sulfonylurea which could precipitate problems with hypoglycemia. If indeed she has gastroparesis I would suggest a trial of erythromycin. Otherwise treat her GERD with PPI and Carafate. To prevent further complications from her diabetes patient will need to work on better glycemic control with her PCP. Patient should follow up with visual educator for further recommendations. She may benefit from a CGM so that she is aware of hyper and hypoglycemic spells. I would recommend that she see a rigging foreman in the outpatient setting to help manage her diabetes. A reduction or abstinence of her alcohol use would also go along ways towards her diabetes control. Thank you for this consult we will be happy to follow along with you throughout her hospital course and make adjustments in her insulin regimen. I would also add that I see that she is not on a statin which would be indicated in her age group and her diabetic status. Qualifiers: Diabetes mellitus type: type 2 Diabetes mellitus terminal clerk insulin use: with residential use Diabetes mellitus complication status: without complication Qualified Code(s): E11.9 - Type 2 diabetes mellitus without complications; Z79.4 - manager long term care (current) use of insulin History of Present Illness History of Present Illness Chief Complaint: GERD Narrative: 60-year-old female with a history of Farrell's esophagitis, alcohol abuse, poorly controlled type 2 diabetes mellitus, chronic anemia, who was admitted by the surgical service for colonoscopy and EGD to evaluate her anemia. Reportedly her last screening was performed at [facility] in February 2021. She is followed by Dr. David Dejesus at [facility]. Reportedly her colonoscopy was unremarkable and her EGD was remarkable for a long segment of Farrell's esophagitis. Patient's been experiencing symptoms of odynophagia and dysphagia despite taking omeprazole. The hospitalist service was asked to consult on the patient for diabetes management. Patient is outpatient diabetic treatment includes combination of glyburide along with NPH and glargine insulin. Patient reports that her blood sugars are usually in the low 100s to 120s. However her last glycohemoglobin A1c from March 04, 2021 was 11.8%. Patient denies any complications from her diabetes such as chronic kidney disease or retinopathy or peripheral neuropathy. Prior work-up for diabetic gastroparesis was performed last February and was found and was found to have a normal nuclear gastric emptying study. Since admission today her blood sugars have been running in the 70s to low 110s. However the patient is on a clear liquid diet has had poor oral intake. Patient's home dose of NPH and glyburide were ordered on admission. Patient underwent an EGD today which demonstrated severe esophagitis and esophageal ulcers and evidence of Farrell's esophagitis. Furthermore she had a moderate amount of gastric contents in her stomach despite her being n.p.o. for her study. Patient is scheduled for a nuclear gastric emptying study for tomorrow. Review of Systems Constitutional Constitutional: Reports as per [facility] All Active Problems (Updated 06/10/21 @ 22:19 by Rory Sevilla) Farrell's 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 (Acute) Erosive esophagitis (Acute) Esophageal ulcer with bleeding (Acute) Chronic iron deficiency anemia (Acute) Chronic diarrhea (Acute) Nausea & vomiting (Acute) Black tarry stools (Acute) Leukocytosis (Acute) Pleural effusion (Acute) ETOH abuse (Chronic) Ventral hernia (Acute) Poorly controlled diabetes mellitus (Acute) Chronic pancreatitis due to acute alcohol intoxication (Acute) Depression (Chronic) Bipolar 1 disorder (Acute) Cholelithiasis (Chronic) Gastroparesis (Acute) Medical History Alcohol abuse Anxiety Farrell's esophagus Diabetes History of pilonidal cyst Surgical History History of section History of hysterectomy History of tonsillectomy Social History Smoking/Tobacco Use Status: Former Tobacco Use Quit Date: 04/09/19 Smoking risk assessment performed?: Yes Alcohol Intake: former Drug use: Never Substance use type: does not use Details: pt. denies history of ETOH abuse Do you feel safe at home: Yes Do you feel safe in your relationship?: Yes Additional Social history: Unable to asess as spouse Rogelio in the room. Exam Narrative Exam Narrative: Late middle-aged white female who appears to be older than her stated age. She is alert and oriented to person place time circumstance in no acute distress. HEENT is unremarkable. Funduscopic exam reveals no hemorrhages no exudates no papilledema Neck is supple no JVD normal carotid pulses no bruits no thyromegaly no lymphadenopathy. Lungs clear to auscultation Heart regular rate and rhythm without murmur rub or gallop. Abdomen soft nondistended nontender normal bowel sounds no masses no bruits Lower extremities without peripheral cyanosis or edema. She has normal pedal pulses. Normal sensation to light touch. Neuro exam reveals resting tremors in her hands that resolved with intention. Normal strength and normal sensation to light touch. No facial asymmetry no dysarthric speech full extraocular motion intact. Results Last Vital Signs Temp 37.2 C 06/10/21 15:45 Pulse 85 06/10/21 15:45 Resp 18 06/10/21 15:45 BP 136/76 06/10/21 15:45 Pulse Ox 98 06/10/21 15:45 Labs Result diagrams: 06/10/21 08:40 06/10/21 08:40 Labs: Laboratory Results - last 24 hr 06/10/21 06/10/21 06/10/21 08:40 08:40 08:40 WBC RBC Hgb Hct MCV MCH MCHC RDW Plt Count MPV Immature Gran % Neutrophils % Lymphocytes % Monocytes % Eosinophils % Basophils % Nucleated RBC % Absolute Neutrophils Absolute Lymphocytes Absolute Monocytes Absolute Eosinophils Absolute Basophils PT INR Sodium 142 Potassium 4.0 Chloride 102 Carbon Dioxide 30.4 Anion Gap 9.6 BUN 6 L Creatinine 0.8 Estimated GFR/1.73 m2 >= 60.00 Glucose 121 H Calcium 10.0 Magnesium 1.9 Iron 37 L TIBC 354 Transferrin % Sat 10 L Ferritin 34 Total Bilirubin 0.2 GGT 11 AST 8 L ALT 11 L Alkaline Phosphatase 75 Total Protein 7.5 Albumin 3.2 L Vitamin B12 654 Folate 18.9 06/10/21 06/10/21 08:40 08:40 WBC 6.46 RBC 5.57 H Hgb 14.0 Hct 46.3 H MCV 83.1 MCH 25.1 L MCHC 30.2 L RDW 15.2 H Plt Count 280 MPV 9.4 Immature Gran % 0.3 Neutrophils % 55.9 Lymphocytes % 30.3 Monocytes % 10.7 Eosinophils % 1.9 Basophils % 0.9 Nucleated RBC % 0 Absolute Neutrophils 3.61 Absolute Lymphocytes 1.96 Absolute Monocytes 0.69 Absolute Eosinophils 0.12 Absolute Basophils 0.06 PT 9.4 INR 0.9 Sodium Potassium Chloride Carbon Dioxide Anion Gap BUN Creatinine Estimated GFR/1.73 m2 Glucose Calcium Magnesium Iron TIBC Transferrin % Sat Ferritin Total Bilirubin GGT AST ALT Alkaline Phosphatase Total Protein Albumin Vitamin B12 Folate
[2021-06-10] MEDS: Divalproex Sodium 250 MG TAB.ER.24H PO (20:39)
[2021-06-10] MEDS: Divalproex Sodium 500 MG TAB.ER.24H PO (20:40)
[2021-06-10] MEDS: OLANZapine 5 MG TAB 10 MG PO (21:12)
[2021-06-10] MEDS: QUEtiapine 100 MG TAB 200 MG PO (21:12)
[2021-06-10] MEDS: Insulin NPH-Human 300 UNITS/3 ML PEN 20 UNIT SC (21:16)
[2021-06-11] MEDS: DEXTROSE 5%-LACTATED RINGERS 1,000 ML 80 ML IV ×2 (00:14→08:32)
[2021-06-11] MEDS: Dextrose 50%-Water 25 GM/50 ML SYR (00:47)
[2021-06-11] MEDS: ACETAMINOPHEN 1,000 MG/100 ML BTL 400 MG IVPB ×2 (03:48→12:15)
[2021-06-11] MEDS: PANTOPRAZOLE 80 MG in Normal Saline 100 ML 10 MG IV (03:53)
[2021-06-11 06:22] VITALS: BP 113/59; PULSE 65; RESP 19; TEMP 36; O2SAT 98
[2021-06-11 07:24] VITALS: BP 108/56; PULSE 74; RESP 15; TEMP 36.4; O2SAT 97
[2021-06-11 08:04] LABS: Hemoglobin A1C 6.1 % (<5.7)
[2021-06-11 08:10] LABS: Calculated LDL 108 mg/dL (<100); Cholesterol 191 mg/dL (<200); HDL Cholesterol 39 mg/dL (40-60); Triglyceride 222 mg/dL (<150)
[2021-06-11 08:36] VITALS: BP 126/71; RESP 14; TEMP 36.5; O2SAT 96
--- NOTE | 2021-06-11 08:45 | DI.NM_ITS ---
Exam(s) NM GASTRIC EMPTYING CLINICAL HISTORY: food rentention. COMPARISON: No exams were available for comparison EXAMINATION: PO Dose: 1 mCi Sulfur colloid in eggs. One piece of bread 8 ounces of water Images: Immediately, 2 hours and 4 hours. No one hour images were performed due to scanner unavailab ility. FINDINGS: The gastric emptying at 2 hour is calculated to be 64%. The T1/2 is min. Gastric emptying at 4 hours is 92 percent. This is within the normal range. IMPRESSION: 1. Gastric emptying within normal range at 2 hours and 4 hours.. SNM guidelines: 40% or more gastric emptying at 90 minutes is considered normal. Normal T 1/2 < 50 mi nutes. < 30% at 1 hour signifies abnormal rapid gastric emptying.
--- NOTE | 2021-06-11 09:32 | PDOC.CMIN ---
- If Service Date Differs Date of service: 06/11/21 Time of Service: 09:32 Care Management Initial Assess REASON FOR HOSPITALIZATION:: esophageal ulcer with bleeding PAST MEDICAL HISTORY/PAST SURGICAL HISTORY:: All Active Problems (Updated 06/10/21 @ 22:19 by Rory Sevilla). Farrell's 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 (Acute). Erosive esophagitis (Acute). Esophageal ulcer with bleeding (Acute). Chronic iron deficiency anemia (Acute). Chronic diarrhea (Acute). Nausea & vomiting (Acute). Black tarry stools (Acute). Leukocytosis (Acute). Pleural effusion (Acute). ETOH abuse (Chronic). Ventral hernia (Acute). Poorly controlled diabetes mellitus (Acute). Chronic pancreatitis due to acute alcohol intoxication (Acute). Depression (Chronic). Bipolar 1 disorder (Acute). Cholelithiasis (Chronic). Gastroparesis (Acute). Medical History . Alcohol abuse. Anxiety. Farrell's esophagus. Diabetes. History of pilonidal cyst. Surgical History . History of section. History of hysterectomy. History of tonsillectomy PREVIOUS FUNCTIONAL STATUS/SOCIAL/FAMILY SUPPORTS:: Jennifer lives in [facility] with her , Campos. The couple have two sons: Geronimo and Celso. 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 She now cares for her who is disabled. She enjoys watching television, playing games on the computer, reading, and crocheting. Their son Celso lives locally and is supportive of the couple. CURRENT FUNCTIONAL STATUS:: Jennifer was fully dressed when met with her. She announced that she was being discharged today. She stated that she still has some discomfort but is generally felling better. Her Campos was present and was prepared to drive her home. ADVANCE DIRECTIVES:: none on file Has patient been provided with info about the portal/API?: Yes Did the patient sign up for the portal?: No CODE STATUS:: Full Code INSURANCE COVERAGE / FINANCIAL ISSUES:: Medicaid CURRENT HOME/COMMUNITY SERVICES/EQUIPMENT:: none PRIMARY CARE PHYSICIAN:: Ana Gillespie POTENTIAL DISCHARGE NEEDS:: follow up with PCP and plan of care PATIENT/FAMILY EDUCATION NEEDS:: Review of discharge instructions, limitations, follow up plan, activity, medications, and discuss Ask Me Three TRANSPORTATION:: via private vehicle with family PLAN:: Jennifer will likely be discharged home with no new services. She will follow up with her PCP and plan of care and transport with family. CM will continue to support Jennifer and her discharge needs.
--- NOTE | 2021-06-11 10:08 | W.PM.PROGNOT ---
Date of Service Date of service: 06/11/21 Time of Service: 10:08 Assessment and Plan Assessment and plan (1) Esophageal ulcer with bleeding: Status: Acute (2) Erosive esophagitis: Status: Acute Assessment and plan: Continue IV protonix, will start sucralfate. Diabetic heart healthy diet Awaiting gastric emptying study Activity as tolerated Pulmonary toilet F/u as outpt to review Bx results. (3) Farrell's 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: Status: Acute (4) Nausea & vomiting: Status: Acute (5) Chronic diarrhea: Status: Acute (6) Black tarry stools: Status: Acute (7) ETOH abuse: Status: Chronic (8) Poorly controlled diabetes mellitus: Status: Acute (9) Chronic pancreatitis due to acute alcohol intoxication: Status: Acute (10) Depression: Status: Chronic (11) Bipolar 1 disorder: Status: Acute (12) Gastroparesis: Status: Acute Subjective Subjective Interval history since last seen: Arrive with patient sleeping soundly. She was very difficulty to wake. She denied having any abdominal pain. Expressed some throat soreness. Exam Const General: cooperative, healthy appearing and comfortable Orientation: alert and oriented x3 Resp Effort & Inspection: normal respiratory effort, no audible wheezes and no cough GI Palpation: soft, no guarding and nontender Objective Last Vital Signs Temp 36.5 C 06/11/21 08:36 Pulse 74 06/11/21 07:24 Resp 14 06/11/21 08:36 BP 126/71 06/11/21 08:36 Pulse Ox 96 06/11/21 08:36 Laboratory Results - last 24 hr 06/11/21 06/11/21 07:26 07:26 Hemoglobin A1c 6.1 H Triglycerides 222 H Total Cholesterol 191 LDL Cholesterol, Calc 108 H HDL Cholesterol 39 L
[2021-06-11] MEDS: Insulin Aspart 300 UNITS/3 ML PEN SC (11:46)
--- NOTE | 2021-06-11 12:43 | DM INPTCON_ITS ---
Date of service: 06/11/21 Time of Service: 12:43 Diabetes Inpatient Consult Reason for Visit: Request for diabetes consult DESCRIPTION/ASSESSMENT: Ms. Irving presents esophageal ulcers with bleeding. History of ETOH. She is on NPH 20 units q am. Aspart correction and aspart for prandial coverage. Although her A1C in February of 2021 was 11.8 as well as the ones prior to that, her A1C today is 6.1 suggesting excellent glycemic control or perhaps even too tight. Her blood sugars initially were below target. NPH was held. Now she has had just one BG reading above target. PO intake is good to fair. BMI is 31.3 kg/m2 c/w class 1 (mild obesity). INTERVENTION: At this time, given her mostly tight coverage of blood sugars, would probably continue to hold NPH and possible even the prandial coverage as we do not want her to have lows of course. Ms. Irving was not available today for me to check in with her regarding her diabetes education needs, but I will check again prior to discharge. I am also curious to see to what she attributes the big drop in her A1C. PLAN: Will continue to follow PO, BG, weight. Will f/u with Ms. Irving jimbo rding her diabetes education needs. Thank you for the consult. Time Spent in Nutritional Counseling and Treatment: 0
[2021-06-11] MEDS: MORPHine 2 MG/ML SYR IVP (12:47)
--- NOTE | 2021-06-11 14:45 | W.PM.DS.N ---
Date of service: 06/11/21 Time of Service: 14:46 DS: Diagnosis Discharge Diagnosis (1) Esophageal ulcer with bleeding: Status: Acute (2) Erosive esophagitis: Status: Acute (3) Farrell's 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: Status: Acute (4) Nausea & vomiting: Status: Acute (5) Chronic diarrhea: Status: Acute (6) Black tarry stools: Status: Acute (7) ETOH abuse: Status: Chronic (8) Poorly controlled diabetes mellitus: Status: Acute (9) Chronic pancreatitis due to acute alcohol intoxication: Status: Acute (10) Depression: Status: Chronic (11) Bipolar 1 disorder: Status: Acute (12) Gastroparesis: Status: Acute Discharge Plan Disposition Patient Disposition: HOME Condition: Good Discharge Details Reason For Visit: Severe Esopgagitis/Bleeding Esophageal Ulcer Admit Date/Time: 06/10/21 10:46 Admit Provider: Merly Purcell Attending Provider: Merly Purcell Primary Care Provider: Ana Gillespie [facility] Course Hospital Course: Mrs Irving is a pleasant 61 year old with diabetes and anemia who was admitted after having a colonoscopy and EGD. She was found to have erosive esophagitis, esophageal ulcer and gastritis. She was started on Protonix drip and Carafate. She also was noted to have a fluid filled stomach at time of her EGD, A gastric emptying study was performed today. The results are pending. Patient is doing well otherwise. Will D/C to home on Protonix 40 mg BID and Carafate AC and HS. She will follow up with Dr. Dejesus at [facility] Home Meds and New Rx's Prescriptions: New pantoprazole 40 mg tablet,delayed release (DR/EC) 80 mg PO BID 30 Days Qty: 120 RF: 0 sucralfate [Carafate] 1 gram tablet 1 g PO Q6H 30 Days Qty: 120 RF: 0 Continued glyburide 5 mg tablet 15 mg PO DAILY RF: 0 insulin aspart U-100 [Novolog Flexpen U-100 Insulin] 100 unit/mL (3 mL) insulin pen 5 unit subcut TID RF: 0 acetylcysteine 600 mg capsule 1,200 mg PO BID RF: 0 divalproex [Depakote ER] 250 mg tablet extended release 24 hr 250 mg PO DAILY RF: 0 bismuth subsalicylate [Pepto-Bismol] 262 mg/15 mL suspension 524 mg PO DAILY PRNRF: 0 Humulin N NPH Insulin KwikPen 100 unit/mL (3 mL) insulin pen 40 unit SUBCUT HS RF: 0 quetiapine 100 mg tablet 200 mg PO HS RF: 0 olanzapine [Zyprexa] 10 mg Tablet 10 mg PO HS RF: 0 divalproex [Depakote ER] 500 mg Tablet Extended Release 24 Hr 500 mg PO BID RF: 0 Discontinued polyethylene glycol 3350 17 gram/dose powder 238 g PO ONCE Qty: 238 RF: 0 bisacodyl [Dulcolax (bisacodyl)] 5 mg tablet,delayed release (DR/EC) 5 mg PO ONCE Qty: 4 RF: 0 pantoprazole 40 mg Tablet,Delayed Release (Dr/Ec) 80 mg PO DAILY RF: 0 Discharge Instructions Instructions: Gastritis (DC), Diet for Stomach Ulcers and Gastritis (ED), Esophagitis (DC) Additional Instructions: Follow up: please follow up with Dr. Dejesus at [facility] Please avoid acidic foods. Please see handout 1. No lifting over 20 pounds or strenuous activity for the first 24 hours after your procedure. After 24 hours there are no restrictions on your activity but you may feel fatigued for a few days. 2. After you arrive home you may have a light meal and return to your normal diet as you can tolerate it without feeling sick to your stomach. 3. You may have a bloated, gaseous feeling in your belly (abdomen) after a colonoscopy. Passing gas and belching will help. Walking or lying down on your left side with your knees flexed may relieve the discomfort. Call the office at [phone] (Office) or [phone] (Hospital) right away if you notice any of the following: a.Vomiting of blood or ?coffee ground stools?. b.Rectal bleeding 1Tbsp, blood clots or continuous bleeding. c.Severe belly (abdominal) pain. d.A hard distended belly (abdomen) and an inability to pass gas. 4. Please don?t expect to have a normal BM (bowel movement) for 2-3 days after your procedure. 5. If there are questions regarding the findings of your procedure, please contact your doctor 6. If you are unable to contact your doctor with a problem, contact the hospital at [phone]. 7. Continue all your regular medications unless directed otherwise. Activity:: Activity as Tolerated Equipment/Supplies:: No Equipment Needed Diet:: low acid and carb counting Discharge Orders Discharge Orders: Discharge Order (Routine); Ordered 06/11/21 Ordered By: Michaela Rosales DS: Summary Time Spent with Patient providing and/or coordinating discharge services: Less than 30 minutes Status at Discharge Functional status at discharge: independent ambulation Overall status at discharge: patient is back to baseline Mental Status: mental status grossly normal Speech and Movement: speech and movement normal Mood: congruent mood Affect: normal affect Exam GI Palpation: soft, no hepatosplenomegaly and tender in the epigastrum Auscultation: normal bowel sounds Psych Mental Status: mental status grossly normal Speech and Movement: speech and movement normal Mood: congruent mood Affect: normal affect DS: Data Vitals/I&O Vitals and I&O: Vital Signs Temperature 97.7 F 06/11/21 08:36 Temperature Source Tympanic 06/11/21 07:24 Pulse 74 06/11/21 07:24 Pulse Rhythm Regular 06/11/21 08:00 Respiratory Rate 14 06/11/21 08:36 Respiratory Effort Non-Labored 06/11/21 08:00 Respiratory Depth Normal 06/11/21 08:00 Respiratory Pattern Normal 06/11/21 08:00 Blood Pressure 126/71 06/11/21 08:36 Pulse Oximetry 96 06/11/21 08:36 Respiratory End-tidal CO2 46 06/10/21 11:16 Oxygen Delivery Method Room Air 06/11/21 08:36 Oxygen Flow Rate 0 06/11/21 08:36 Pain Level 10 06/11/21 12:47 Comment 06/10/21 13:51 Intake & Output 06/10/21 06/11/21 06/11/21 23:59 11:59 23:59 Intake Total 1940 / 2840 1911.5 / 1911.5 Output Total 650 / 650 1899 / 2099 / 2099 Balance 1290 / 2190 11.5 / -188.5 -200 / -188.5 Intake: IV 820 / 1420 1611.5 / 1611.5 Oral 1120 / 1420 300 / 300 Output: Urine 650 / 650 1899 / 2099 / 2099 Other: Urine Color Yellow Yellow Yellow Urine Appearance Clear Clear Clear Urine Odor Normal None None Voiding Methods Bedside Commode Bedside Commode Bedside Commode Data Completed and Pending Labs on day of discharge: Labs from last 24 hours 06/11/21 06/11/21 07:26 07:26 Hemoglobin A1c 6.1 H Triglycerides 222 H Total Cholesterol 191 LDL Cholesterol, Calc 108 H HDL Cholesterol 39 L PFSH All Active Problems (Updated 06/10/21 @ 22:19 by Rory Sevilla) Farrell's 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 (Acute) Erosive esophagitis (Acute) Esophageal ulcer with bleeding (Acute) Chronic iron deficiency anemia (Acute) Chronic diarrhea (Acute) Nausea & vomiting (Acute) Black tarry stools (Acute) Leukocytosis (Acute) Pleural effusion (Acute) ETOH abuse (Chronic) Ventral hernia (Acute) Poorly controlled diabetes mellitus (Acute) Chronic pancreatitis due to acute alcohol intoxication (Acute) Depression (Chronic) Bipolar 1 disorder (Acute) Cholelithiasis (Chronic) Gastroparesis (Acute) Medical History Alcohol abuse Anxiety Farrell's esophagus Diabetes History of pilonidal cyst Surgical History History of section History of hysterectomy History of tonsillectomy Social History Smoking/Tobacco Use Status: Former Tobacco Use Quit Date: 04/09/19 Smoking risk assessment performed?: Yes Alcohol Intake: former Drug use: Never Substance use type: does not use Details: pt. denies history of ETOH abuse Do you feel safe at home: Yes Do you feel safe in your relationship?: Yes Additional Social history: Unable to asess as spouse Rogelio in the room.
--- NOTE | 2021-06-11 16:08 | PDOC.CMDIS ---
- If Service Date Differs Date of service: 06/11/21 Time of Service: 16:08 LACE Index Scoring Tool - Questions: Length of Stay (in days): 1 Acuity (Admit via E.D.?): No Comorbidities: Diabetes w/o Complication E.D. Visits: 3 - Answers: Total Score: 5 Risk of Readmission: Low Risk Care Management Discharge Reason for Hospitalization: esophageal ulcer with bleeding Discharge Plan: Jennifer will be discharged home with no new services. She will follow up with her PCP and plan of care and transport with family. Patient/Family Education Needs: Review of discharge instructions, limitations, follow up plan, activity, medications, and discuss Ask Me Three
--- NOTE | 2021-06-11 17:47 | CHAPLAIN ---
Jennifer has a procedure this morning, and was too tired to work on her Advance Directive. She had asked for help yesterday. I saw her again before she was discharged and gave her my contact information so she could call me with any questions while filling it out at home, and set up a time to come in and can help her then.
== END 2021-06-11 15:22 | disposition home or self-care (01) | DRG 381 ==
LOC: MS 12:48
PROVIDERS: Internal Medicine; Admitting Provider Surgery; PCP Nurse Practitioner Family; Visit Provider Surgery
PROC: (CPT 43239; principal; 2021-06-10 09:15)
DX: K22.11 Ulcer of esophagus with bleeding; K86.0 Alcohol-induced chronic pancreatitis; R11.2 Nausea with vomiting, unspecified; K52.9 Noninfective gastroenteritis and colitis, unspecified; F10.10 Alcohol abuse, uncomplicated; E11.65 Type 2 diabetes mellitus with hyperglycemia; F31.9 Bipolar disorder, unspecified; E11.43 Type 2 diabetes mellitus with diabetic autonomic (poly)neuropathy; K31.84 Gastroparesis; D50.9 Iron deficiency anemia, unspecified; Z87.891 Personal history of nicotine dependence; Z79.4 Long term (current) use of insulin; K62.1 Rectal polyp; K63.5 Polyp of colon; D12.4 Benign neoplasm of descending colon
CPT/HCPCS: 43239; 45380; 36415; 78265; 80053; 80061; 88305; 82607; 82728; 82746; 82977; 83036; 83540; 83550; 83735; 85025; 85610; 99221; J0131; J1756; J2001; J2250; J2270; J3490

== ENCOUNTER 2021-07-17 07:21 | Observation (INO) | payer MEDICAID, SELFPAY ==
[2021-07-17] VITALS (73 sets, daily range): BP systolic 84–168; BP diastolic 28–126; PULSE 101–147; RESP 11–30; TEMP 36.5–37.4; O2SAT 93–99
[2021-07-17] MEDS: Normal Saline 1,000 ML 1000 ML IV (08:00)
--- NOTE | 2021-07-17 08:00 | DI.RAD_ITS ---
Exam(s) XR CHEST 2V PA LATERAL EXAM: XR CHEST 2V PA LATERAL CLINICAL HISTORY: Vomiting, R/O pneumonia TECHNIQUE: 2D digital imaging was performed. COMPARISON: CR,XR XR PORTABLE CHEST AP from 04/22/2021 FINDINGS: The heart is not enlarged. The lungs are clear and well expanded with perhaps mild scarring in the frannei ng bases.. No pleural effusion seen. Mediastinal contours appear intact. IMPRESSION: No evidence of acute process. RADIATION DOSE DELIVERED: Total DLP
--- NOTE | 2021-07-17 08:06 | ED.GENADUL_ITS ---
Discharge Plan Disposition Patient Disposition: [facility] INPATIENT Condition: Improving Discharge Details Clinical Impression: Gastroparesis, Intractable vomiting with nausea Admit Date/Time: 07/17/21 12:32 Admit Provider: Erin Damon Attending Provider: Erin Damon Primary Care Provider: Ana Gillespie ED Provider: Kirti Hollis Discharge Data Discharge Date/Time-TO BE ENTERED AT DEPARTURE: 07/17/21 17:17 Medical Decision Making 61-year-old female presents to the ER chief complaint of nausea vomiting diarrhea which began yesterday. Patient states that she had a some soup and then began with acute nausea vomiting. She reports diarrhea 2 days ago. Denies any hematochezia or hematic emesis. Denies any dark tarry stools. She denies any chest pain shortness of breath or fever. She does endorse some chills and some burning in her throat and midepigastrium. Abdomen is soft and nontender to palpation. She was recently admitted and discharged beginning of June for Farrell's esophagus and gastritis. She does have a history of alcohol abuse, anxiety, chronic pancreatitis, diabetes, atrial flutter and tubular adenoma. She denies any recent alcohol intake she reports that she only drinks on special occasions. She is a former smoker. 0811: Patient is receiving normal saline and has received Zofran 4 mg. Heart rate is now down to 107. Protonix 40 mg IV ordered and chest x-ray. Labs were placed by the off going MD prior to my arrival. Lab results show a leukocytosis with white blood cell count at 15.57, absolute neutrophils 12.75, VBG pH 7.46, bicarb 36 CO2 31 base excess 12 CMP shows anion gap 11.5 sodium is 139 potassium 3.7 GFR greater than 60, glucose is 326 urine shows 15 ketones 100 of protein no leukocytes or nitrites. Urine glucose is 500 a Valporic Acid level is 105. EXAM: XR CHEST 2V PA LATERAL CLINICAL HISTORY: Vomiting, R/O pneumonia TECHNIQUE: 2D digital imaging was performed. COMPARISON: CR,XR XR PORTABLE CHEST AP from 04/22/2021 FINDINGS: The heart is not enlarged. The lungs are clear and well expanded with perhaps mild scarring in the lung bases.. No pleural effusion seen. Mediastinal contours appear intact. IMPRESSION: No evidence of acute process. We will order a CT abdomen pelvis due to the high white blood cell count however this could be caused from the vomiting. COMPARISON: CT CT ABDOMEN PELVIS WO from 03/03/[address] ABDOMEN PELVIS W from 04/22/2021 TECHNIQUE: FINDINGS: CT examination of the abdomen and pelvis was performed with a bolus infusion of 100 cc of Omnipaque 350. Images obtained through the lung bases are unrem arkable. Note is made of marked low-attenuation wall thickening of the distal esophagus consistent with edema. There is appearance suggestive of mucosal irregularity of the distal esophagus, the patient reportedly has history of Farrell esophagus on prior endoscopies, the possibility of esophageal carcinoma is not excluded on this examination. No gross esophageal obstruction, there is is a large quantity of fluid in the stomach. The liver is unremarkable in appearance except for an incidental 12 millimeter Patak cyst of the right lobe of the liver centrally.. Gallbladder appears to contain small stones in, bile ducts are CT normal. Pancreas appears normal. Spleen is unremarkable in appearance. Adrenals appear normal. The kidneys are unremarkable except for an apparent incidental small right renal cyst with no evidence of hydronephrosis, nephrolithiasis, or renal mass.. Urinary bladder unremarkable. Abdominal aorta is of normal diameter and no major vascular abnormality is seen. There is a right-sided ventral hernia in the lower abdomen which is fat containing, subcutaneous component measures up to about 6 x 4 cm in diameter, the neck of the hernia sac is about 11 millimeters in diameter period. No abdominal or pelvic adenopathy. 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 Appendix is normal. No evidence of diverticulitis or bowel obstruction. There is a question of wall thickening of under distended colon, please correlate clinically regarding the possibility of colitis. No pericolonic fat edema or obstruction seen. IMPRESSION: Markedly abnormal appearance of esophagus,, marked wall thickening/edema and markedly abnormal mucosa. The patient reportedly has history of Farrell's esophagus, the findings are more prominent on today's examination since prior ex amination of April 2021. Possible acute esophagitis, esophageal carcinoma not excluded. Right lower quadrant ventral hernia as described above, fat containing. Question mild colonic wall thickening diffusely, please correlate clinically regarding possibility of colitis. 1012: Will consult with surgery. 1039: Spoke with Dr. Purcell who will look at Ct and call me back. 1126: Spoke with Dr. Purcell regarding patient's case she reports that this is a motility issue (gastroparesis) and also related to her diabetes. She does not recommend a additional EGD. She is scheduled at [facility] for [place] in September. Upon patient reevaluation she is still complaining of nausea and did have an episode of emesis. Phenergan ordered. I will contact hospitalist for intractable nausea vomiting. 1137: Spoke with Dr. Damon regarding patient case and details she recommends trial of Reglan. Will administer Reglan and reevaluate in approximately 3045 minutes. Spoke with patient's Campos regarding plan he verbalizes understanding. 1216: Patient re-evaluation reports vomiting bile again after Reglan administration. Will re-page hospitalist. 1228: Patient had an additional episode of emesis, ambulates with assistance up to BR. 1234: Spoke with Dr. Damon regarding patient she agrees to accept patient for admission she does recommend a NG tube which the order was placed. 1347: NG tube placed by field staff at this time there is approximately 700 cc of gastric contents return dark brown in nature. Suction placed to low intermittent. Lab Data Lab results reviewed: Yes I reviewed the patient's lab results. Lab results narrative: Laboratory Tests Range/Units 07/17/21 07/17/21 07/17/21 07:50 07:50 07:50 WBC (4.4-10.8) 10^3/uL 15.57 H RBC (3.93-5.22) 10^6/uL 6.12 H Hgb (11.2-15.7) g/dL 15.3 Hct (36.0-46.0) % 47.4 H MCV (80-95) fL 77.5 L MCH (27.0-33.0) pg 25.0 L MCHC (32.0-36.0) % 32.3 RDW (11.7-14.6) % 17.5 H Plt Count (130-400) 10^3/uL 310 MPV (8.0-11.0) fL 10.3 Immature Gran % 0.4 Neutrophils % 81.9 Lymphocytes % 8.8 Monocytes % 8.6 Eosinophils % 0.0 Basophils % 0.3 Nucleated RBC % % 0 Absolute Neutrophils (1.2-6.7) 10^3/uL 12.75 H Absolute Lymphocytes (1.2-3.4) 10^3/uL 1.37 Absolute Monocytes (0.1-0.8) 10^3/uL 1.34 H Absolute Eosinophils (0.0-0.7) 10^3/uL 0.00 Absolute Basophils (0.0-0.2) 10^3/uL 0.05 VBG pH (7.31-7.41) 7.46 H VBG pCO2 (41-51) mmHg 50 VBG pO2 mmHg 40 VBG HCO3 (23-28) mmol/L 36 H VBG Total CO2 (24-29) mmol/L 31 H VBG O2 Saturation % 72 VBG Base Excess (-2-3) mmol/L 12 H Sodium (136-145) mmol/L 139 Potassium (3.5-5.1) mmol/L 3.7 Chloride (98-107) mmol/L 96 L Carbon Dioxide (21.0-32.0) mmol/L 31.5 Anion Gap (3-11) mmol/L 11.5 H BUN (7-18) mg/dL 13 Creatinine (0.55-1.02) mg/dL 0.9 Estimated GFR/1.73 m2 (mL/min/1.73m2) >= 60.00 Glucose (74-106) mg/dL 326 H Calcium (8.5-10.1) mg/dL 11.3 H Magnesium (1.8-2.4) mg/dL 1.8 Total Bilirubin (0.2-1.0) mg/dL 0.4 AST (15-37) U/L 5 L ALT (14-59) U/L 9 L Alkaline Phosphatase (46-116) U/L 85 Total Protein (6.4-8.2) g/dL 8.0 Albumin (3.4-5.0) g/dL 3.6 Lipase (73-393) U/L 26 Urine Color (Yellow) Urine Clarity (Clear) Urine pH (5-8) Ur Specific [place] (1.005-1.025) Urine Protein (Negative) mg/dL Urine Ketones (Negative) mg/dL Urine Blood (Negative) Urine Nitrite (Negative) Urine Bilirubin (Negative) Urine Urobilinogen (Up TO 0.2) EU/dL Ur Leukocyte Esterase (Negative) Urine RBC (0-2) HPF Urine WBC (0-5) HPF Ur Epithelial Cells (Negative) HPF Urine Crystals (Negative) HPF Urine Bacteria (Negative) HPF Urine Casts (Negative) LPF Urine Mucus (Negative) Ur Culture Indicated? Urine Glucose (Negative) mg/dL Valproic Acid ( - 150) ug/mL Range/Units 07/17/21 07/17/21 07:50 08:30 WBC (4.4-10.8) 10^3/uL RBC (3.93-5.22) 10^6/uL Hgb (11.2-15.7) g/dL Hct (36.0-46.0) % MCV (80-95) fL MCH (27.0-33.0) pg MCHC (32.0-36.0) % RDW (11.7-14.6) % Plt Count (130-400) 10^3/uL MPV (8.0-11.0) fL Immature Gran % Neutrophils % Lymphocytes % Monocytes % Eosinophils % Basophils % Nucleated RBC % % Absolute Neutrophils (1.2-6.7) 10^3/uL Absolute Lymphocytes (1.2-3.4) 10^3/uL Absolute Monocytes (0.1-0.8) 10^3/uL Absolute Eosinophils (0.0-0.7) 10^3/uL Absolute Basophils (0.0-0.2) 10^3/uL VBG pH (7.31-7.41) VBG pCO2 (41-51) mmHg VBG pO2 mmHg VBG HCO3 (23-28) mmol/L VBG Total CO2 (24-29) mmol/L VBG O2 Saturation % VBG Base Excess (-2-3) mmol/L Sodium (136-145) mmol/L Potassium (3.5-5.1) mmol/L Chloride (98-107) mmol/L Carbon Dioxide (21.0-32.0) mmol/L Anion Gap (3-11) mmol/L BUN (7-18) mg/dL Creatinine (0.55-1.02) mg/dL Estimated GFR/1.73 m2 (mL/min/1.73m2) Glucose (74-106) mg/dL Calcium (8.5-10.1) mg/dL Magnesium (1.8-2.4) mg/dL Total Bilirubin (0.2-1.0) mg/dL AST (15-37) U/L ALT (14-59) U/L Alkaline Phosphatase (46-116) U/L Total Protein (6.4-8.2) g/dL Albumin (3.4-5.0) g/dL Lipase (73-393) U/L Urine Color (Yellow) Yellow Urine Clarity (Clear) Sl Cloudy Urine pH (5-8) 8.5 H Ur Specific [place] (1.005-1.025) 1.020 Urine Protein (Negative) mg/dL 100 H Urine Ketones (Negative) mg/dL 15 H Urine Blood (Negative) Negative Urine Nitrite (Negative) Negative Urine Bilirubin (Negative) Negative Urine Urobilinogen (Up TO 0.2) EU/dL 0.2 Ur Leukocyte Esterase (Negative) Negative Urine RBC (0-2) HPF 0-2 Urine WBC (0-5) HPF 0-2 Ur Epithelial Cells (Negative) HPF Many Urine Crystals (Negative) HPF Moderate Amorphous Urine Bacteria (Negative) HPF Rare Urine Casts (Negative) LPF Negative Urine Mucus (Negative) Moderate Ur Culture Indicated? No Urine Glucose (Negative) mg/dL 500 H Valproic Acid ( - 150) ug/mL 105.0 HPI General Mode of arrival: ambulatory . Date/Time Provider Initiated Documentation: 07/17/21 07:28 . Limitations to Documentation: no limitations . Information obtained by: patient, RN notes reviewed and old records reviewed . HPI Narrative: 61-year-old female presents to the ER chief complaint of nausea vomiting diarrhea which began yesterday. Patient states that she had a some soup and then began with acute nausea vomiting. She reports diarrhea 2 days ago. Denies any hematochezia or hematic emesis. Denies any dark tarry stools. She denies any chest pain shortness of breath or fever. She does endorse some chills and some burning in her throat and midepigastrium. Abdomen is soft and nontender to palpation. She was recently admitted and discharged beginning of June for Farrell's esophagus and gastritis. She does have a history of alcohol abuse, anxiety, chronic pancreatitis, diabetes, atrial flutter and tubular adenoma. She denies any recent alcohol intake she reports that she only drinks on special occasions. She is a former smoker. Related Data Home Medications Medication Instructions Recorded Confirmed insulin NPH isoph U-100 human 100 40 unit SUBCUT HS 03/04/21 07/17/21 unit/mL (3 mL) subcutaneous pen (Humulin N NPH U-100 Insulin KwikPen) quetiapine 100 mg tablet 200 mg PO HS 04/22/21 07/17/21 acetylcysteine 600 mg capsule 1,200 mg PO BID cap 05/16/21 07/17/21 bismuth subsalicylate 262 mg/15 mL 524 mg PO DAILY PRN ml 05/16/21 07/17/21 oral suspension (Pepto-Bismol) divalproex 250 mg tablet,extended 250 mg PO DAILY tab 05/16/21 07/17/21 release 24 hr (Depakote ER) glyburide 5 mg tablet 15 mg PO DAILY tab 05/16/21 07/17/21 divalproex 500 mg tablet,extended 500 mg PO BID 06/10/21 07/17/21 release 24 hr (Depakote ER) olanzapine 10 mg tablet (Zyprexa) 10 mg PO HS 06/10/21 07/17/21 insulin aspart U-100 100 unit/mL 5 unit SUBCUT TID 07/16/21 07/17/21 (3 mL) subcutaneous pen (Novolog Flexpen U-100 Insulin aspart) sucralfate 1 gram tablet (Carafate) 1 g PO QID tab 07/16/21 07/17/21 pantoprazole 40 mg tablet,delayed 40 mg PO BID #60 tab 07/19/21 release (Protonix) trimethobenzamide 300 mg capsule 300 mg PO Q6H PRN #20 cap 07/19/21 Previous Rx's Medication Instructions Recorded pantoprazole 40 mg tablet,delayed 40 mg PO BID #60 tab 07/19/21 release (Protonix) trimethobenzamide 300 mg capsule 300 mg PO Q6H PRN #20 cap 07/19/21 Allergies Allergy/AdvReac Type Severity Reaction Status Date / Time metformin Allergy Unknown Unverified 07/17/21 07:35 meperidine AdvReac gi upset Unverified 07/17/21 07:35 General Stated Complaint: Nausea/Vomit/Diar ASHANTI: 3 Review of Systems All systems reviewed & are unremarkable except as noted in HPI and below ENT Ears, Nose, Mouth, and Throat: Reports odynophagia Gastrointestinal Gastrointestinal: Denies hematochezia, Reports diarrhea, Reports nausea, Reports odynophagia and Reports vomiting PFSH All Active Problems Discharge planning issues (Acute) Diabetes mellitus type 2 in obese (Acute) Tubular adenoma (Acute ~06/10/21) Hyperplastic colon polyp (Acute ~06/10/21) Farrell's 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 (Acute) Erosive esophagitis (Acute) Esophageal ulcer with bleeding (Acute) Chronic iron deficiency anemia (Acute) Chronic diarrhea (Acute) Nausea & vomiting (Acute) Black tarry stools (Acute) Leukocytosis (Acute) Pleural effusion (Acute) Ventral hernia (Acute) Depression (Chronic) Bipolar 1 disorder (Acute) Cholelithiasis (Chronic) Gastroparesis (Acute) Medical History Alcohol abuse Anxiety Farrell's esophagus Chronic pancreatitis due to acute alcohol intoxication Diabetes ETOH abuse History of pilonidal cyst Poorly controlled diabetes mellitus Surgical History History of section History of colonoscopy with polypectomy (~06/10/21) History of esophagogastroduodenoscopy (EGD) (~06/10/21) History of hysterectomy History of tonsillectomy Social History Smoking/Tobacco Use Status: Former Tobacco Use Quit Date: 02/07/21 Smoking risk assessment performed?: Yes Alcohol Intake: former Drug use: Never Substance use type: does not use Details: pt. denies history of ETOH abuse Do you feel safe at home: Yes Do you feel safe in your relationship?: Yes Additional Social history: Unable to asess as spouse Rogelio in the room. Exam Narrative Exam Narrative: Constitutional: Alert and oriented x3. Appears stated age. Normal body habitus. Head: Normocephalic, no trauma. Eyes: Pupils PERRL, Red reflex noted, EOM's intact. Eyelids symmetrical without lesions, discharge, or swelling. ENT: Bilateral TM's WNL, External ear normal to inspection, no mastoid TTP, swelling, or erythema, Nasal turbinates WNL, no nasal discharge. Normal dentition, Posterior pharynx WNL, no exudate. Chest: RRR, Normal S1, S2, distal pulses intact. Resp: Lung sounds diminished on left side, expiratory rhonchi auscultated. Lungs are clear on the right. Abdomen: Soft, non-distended, Normoactive bowel sounds all 4 quads. Nontender to palpation all 4 quadrants. Musculoskeletal: Normal gait, 5/5 strength to all four extremities. Skin: No suspicious rashes or lesions. Capillary refill less than 2 sec. Neurologic: Cranial nerves II-XII intact. Alert and oriented x 3. Motor: No deficits noted. Sensory: Intact bilaterally all 4 extremities. Reflexes: DTR's intact bilaterally.. Patient does have a resting tremor noted to her upper extremities which patient reports is at her baseline. Hematologic/Lymphatic: No ecchymosis, no lymphadenopathy. Course Vital Signs Vital signs: Vital Signs Temperature 36.7 C 07/17/21 07:32 Pulse 129 H 07/17/21 07:32 Respiratory Rate 16 07/17/21 07:32 Blood Pressure 161/89 H 07/17/21 07:32 Pulse Oximetry 97 07/17/21 07:32 Temperature 36.7 C 07/17/21 07:32 Temperature Source Skin 07/17/21 07:32 Pulse 129 H 07/17/21 07:32 Respiratory Rate 16 07/17/21 07:32 Respiratory Effort 07/17/21 07:32 Blood Pressure 161/89 H 07/17/21 07:32 Blood Pressure Position Supine 07/17/21 07:32 Pulse Oximetry 97 07/17/21 07:32 Pain Level 0 07/17/21 07:32
[2021-07-17 08:07] LABS: BE (Venous) 12 mmol/L (-2-3); HCO3 (Venous) 36 mmol/L (23-28); O2 Sat (Venous) 72 %; TCO2 (Venous) 31 mmol/L (24-29); pCO2 (Venous) 50 mmHg (41-51); pH (Venous) 7.46 (7.31-7.41); pO2 (Venous) 40 mmHg
[2021-07-17 08:08] LABS: Abs Immature Grans 0.07 10^3/uL (0.0-0.06); Absolute Basophil Count 0.05 10^3/uL (0.0-0.2); Absolute Lymphocyte Count 1.37 10^3/uL (1.2-3.4); Absolute Monocyte Count 1.34 10^3/uL (0.1-0.8); Basophils % 0.3; HCT 47.4 % (36.0-46.0); HGB 15.3 g/dL (11.2-15.7); Immature Grans % 0.4; Lymphocytes % 8.8; MCHC 32.3 % (32.0-36.0); MCV 77.5 fL (80-95); MPV 10.3 fL (8.0-11.0); Monocytes % 8.6; Neutrophils % 81.9; Nucleated RBC 0 %; Platelet Count 310 10^3/uL (130-400); RBC 6.12 10^6/uL (3.93-5.22); RDW 17.5 % (11.7-14.6); RDW-SD 47.4 fL; WBC 15.57 10^3/uL (4.4-10.8)
[2021-07-17] MEDS: Ondansetron 4 MG/2 ML VIAL IVP ×2 (08:11→10:03)
[2021-07-17] MEDS: Pantoprazole 40 MG VIAL IVP ×2 (08:15→21:08)
[2021-07-17 08:16] LABS: Absolute Neutrophil Count 12.75 10^3/uL (1.2-6.7)
[2021-07-17 08:36] LABS: ALT 9 U/L (14-59); AST 5 U/L (15-37); Albumin 3.6 g/dL (3.4-5.0); Alkaline Phosphatase 85 U/L (46-116); Anion Gap 11.5 mmol/L (3-11); BUN 13 mg/dL (7-18); Bilirubin, Total 0.4 mg/dL (0.2-1.0); CO2 31.5 mmol/L (21.0-32.0); CREATININE 0.9 mg/dL (0.55-1.02); Calcium 11.3 mg/dL (8.5-10.1); Chloride 96 mmol/L (98-107); Glucose 326 mg/dL (74-106); Lipase 26 U/L (73-393); Magnesium 1.8 mg/dL (1.8-2.4); Potassium 3.7 mmol/L (3.5-5.1); Sodium 139 mmol/L (136-145)
[2021-07-17 08:38] LABS: Bilirubin Negative (Negative); Blood Negative (Negative); Clarity Sl Cloudy (Clear); Glucose 500 mg/dL (Negative); Ketones 15 mg/dL (Negative); Leukocyte Esterase Negative (Negative); Nitrite Negative (Negative); Urobilinogen 0.2 EU/dL (Up TO 0.2); pH 8.5 (5-8)
[2021-07-17 08:44] LABS: Bacteria Rare HPF (Negative); Crystals Moderate Amorphous HPF (Negative); Epithelial Cells Many HPF (Negative); RBC 0-2 HPF (0-2); WBC 0-2 HPF (0-5)
[2021-07-17 08:45] LABS: C & S Indicated? No; Casts Negative LPF (Negative); Mucus Moderate (Negative)
--- NOTE | 2021-07-17 08:45 | DI.CT_ITS ---
Exam(s) CT ABDOMEN PELVIS W EXAM: CT ABDOMEN PELVIS W INDICATION: N/V/D, Hx of pancreatitis, Barretts esophagus. COMPARISON: CT CT ABDOMEN PELVIS WO from 03/03/[address] ABDOMEN PELVIS W from 04/22/2021 TECHNIQUE: FINDINGS: CT examination of the abdomen and pelvis was performed with a bolus infusion of 100 cc of Omnipaque 3 50. Images obtained through the lung bases are unremarkable. Note is made of marked low-attenuation wall thickening of the distal esophagus consistent with edema. There is appearance suggestive of mucosal irregularity of the distal esophagus, the patient reporte dly has history of Farrell esophagus on prior endoscopies, the possibility of esophageal carcinoma is not excluded on this examination. No gross esophageal obstruction, there is is a large quantity of fluid in the stomach. The liver is unremarkable in appearance except for an incidental 12 millimeter Patak cyst of the righ t lobe of the liver centrally.. Gallbladder appears to contain small stones in, bile ducts are CT normal. Pancreas appears normal. Spleen is unremarkable in appearance. Adrenals appear normal. The kidneys are unremarkable except for an apparent incidental small right renal cyst with no evidenc e of hydronephrosis, nephrolithiasis, or renal mass.. Urinary bladder unremarkable. Abdominal aorta is of normal diameter and no major vascular abnormality is seen. There is a right-sided ventral hernia in the lower abdomen which is fat containing, subcutaneous comp onent measures up to about 6 x 4 cm in diameter, the neck of the hernia sac is about 11 millimeters i n diameter period. No abdominal or pelvic adenopathy. 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 Appendix is normal. No evidence of diverticulitis or bowel obstruction. There is a question of wall thickening of under distended colon, please correlate clinically regarding the possibility of colitis . No pericolonic fat edema or obstruction seen. IMPRESSION: Markedly abnormal appearance of esophagus,, marked wall thickening/edema and markedly abnormal mucosa . The patient reportedly has history of Farrell's esophagus, the findings are more prominent on toda y's examination since prior examination of April 2021. Possible acute esophagitis, esophageal car cinoma not excluded. Right lower quadrant ventral hernia as described above, fat containing. Question mild colonic wall thickening diffusely, please correlate clinically regarding possibility of colitis. RADIATION DOSE DELIVERED: 1,046.24mGy.cm Total DLP 1,046.24mGy.cm Total DLP !Error CTDIvol RADIATION OPTIMIZATION: All CT scans at this facility use at least one of these dose optimization te chniques: automated exposure control; mA and/or kV adjustment per patient size (includes targeted exa ms where dose is matched to clinical indication); or iterative reconstruction.
[2021-07-17] MEDS: Omnipaque 350 MG/ML 100 ML BTL IJ (09:33)
[2021-07-17] MEDS: Normal Saline 1,000 ML 150 ML IV ×2 (10:30→18:11)
[2021-07-17] MEDS: Sucralfate 1 GM TAB PO ×3 (10:36→21:08)
[2021-07-17] MEDS: Metoclopramide 10 MG/2 ML VIAL IVP (11:39)
--- NOTE | 2021-07-17 13:35 | HPE_ITS ---
Date of service: 07/17/21 Time of Service: 13:35 Assessment and Plan Assessment and plan (1) Intractable vomiting with nausea: Status: Acute Assessment and plan: thought to be d/t gastroparesis. referred to observation IV hydration start erythromycin as she can not take reglan d/t medication interaction NGT tigan and benadryl prn nausea recent gastric emptying study 06/11/2021 showed normal emptying range but when she underwent upper endoscopy and NPO was found to have high volumes of fluid in st omach (? compliance with NPO). discussed with surgery. (2) Diabetes mellitus type 2 in obese: Status: Acute Assessment and plan: last A1C 6.1 in jun 11, 2021 will be NPO blood sugar checks q6h and prn sliding scale as needed will reduce home basal insulin hold oral antidiabetic agents (3) Bipolar 1 disorder: Status: Acute Assessment and plan: continue home medication will need to clamp NGT for 1 -2 hour after administration (4) Erosive esophagitis: Status: Acute Assessment and plan: continue PPI BID had upper endoscopy here 06/11/2021 is [place] [facility] [place] plan to re-scope in September 2021. no indication to re-scope here now. (5) Discharge planning issues: Status: Acute Assessment and plan: home with no services once medically stable. discussed with DR Damon History of Present Illness History of Present Illness Chief Complaint: nausea and vomiting Narrative: This is a 61 year old female who presents to the ED with nausea and vomiting. she reports she had diarrhea 2 days ago, none since. she had similar symptoms and was admitted jun 10, 2021 under surgical services. she underwent an upper and lower endoscopy and was found to have erosive esophagitis, esophageal ulcer and gastritis. she was discharged on protonix and carafate and will be followed by Dr Dejesus at [facility] [place] plan they will rescope her in September. Of note she was noted to have a fluid filled stomach at time of EGD despite being NPO as directed. A gastric emptying study was completed on 06/11/2021 which was unremarkable with no delayed emptying observed. she has had no fever or chills, no abdominal pain, no sick contacts with similar symptoms. Review of Systems Constitutional Constitutional: Denies fever(s) and Denies headache(s) ENT Ears, Nose, Mouth, and Throat: Denies dysphagia, Denies vertigo, Denies dizziness, Denies headache(s) and Denies odynophagia Cardiovascular Cardiovascular: Denies chest pain and Denies dyspnea Respiratory Respiratory: Denies dyspnea Gastrointestinal Gastrointestinal: Denies hematochezia, Denies constipation, Denies dysphagia, Denies heartburn, Reports diarrhea, Reports nausea, Denies odynophagia, Reports vomiting and Denies hematemesis Neurologic Neurologic: Denies vertigo, Denies dizziness and Denies headache(s) [facility] All Active Problems (Updated 07/17/21 @ 18:04 by Shalini García NP) Discharge planning issues (Acute) Diabetes mellitus type 2 in obese (Acute) Intractable vomiting with nausea (Acute) Tubular adenoma (Acute ~06/10/21) Hyperplastic colon polyp (Acute ~06/10/21) Farrell's 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 (Acute) Erosive esophagitis (Acute) Esophageal ulcer with bleeding (Acute) Chronic iron deficiency anemia (Acute) Chronic diarrhea (Acute) Nausea & vomiting (Acute) Black tarry stools (Acute) Leukocytosis (Acute) Pleural effusion (Acute) Ventral hernia (Acute) Depression (Chronic) Bipolar 1 disorder (Acute) Cholelithiasis (Chronic) Gastroparesis (Acute) Medical History Alcohol abuse Anxiety Farrell's esophagus Chronic pancreatitis due to acute alcohol intoxication Diabetes ETOH abuse History of pilonidal cyst Poorly controlled diabetes mellitus Surgical History History of section History of colonoscopy with polypectomy (~06/10/21) History of esophagogastroduodenoscopy (EGD) (~06/10/21) History of hysterectomy History of tonsillectomy Social History Smoking/Tobacco Use Status: Former Tobacco Use Quit Date: 02/07/21 Smoking risk assessment performed?: Yes Alcohol Intake: former Drug use: Never Substance use type: does not use Details: pt. denies history of ETOH abuse Do you feel safe at home: Yes Do you feel safe in your relationship?: Yes Additional Social history: Unable to asess as spouse Rogelio in the room. Meds Allergies and Home Medications Allergies Allergy/AdvReac Type Severity Reaction Status Date / Time metformin Allergy Unknown Unverified 07/17/21 07:35 meperidine AdvReac gi upset Unverified 07/17/21 07:35 Home Medications Medication Instructions Recorded Confirmed Type insulin NPH isoph U-100 human 100 40 unit SUBCUT HS 03/04/21 07/17/21 History unit/mL (3 mL) subcutaneous pen (Humulin N NPH U-100 Insulin KwikPen) quetiapine 100 mg tablet 200 mg PO HS 04/22/21 07/17/21 History acetylcysteine 600 mg capsule 1,200 mg PO BID cap 05/16/21 07/17/21 History bismuth subsalicylate 262 mg/15 mL 524 mg PO DAILY PRN ml 05/16/21 07/17/21 History oral suspension (Pepto-Bismol) divalproex 250 mg tablet,extended 250 mg PO DAILY tab 05/16/21 07/17/21 History release 24 hr (Depakote ER) glyburide 5 mg tablet 15 mg PO DAILY tab 05/16/21 07/17/21 History divalproex 500 mg tablet,extended 500 mg PO BID 06/10/21 07/17/21 History release 24 hr (Depakote ER) olanzapine 10 mg tablet (Zyprexa) 10 mg PO HS 06/10/21 07/17/21 History insulin aspart U-100 100 unit/mL 5 unit SUBCUT TID 07/16/21 07/17/21 History (3 mL) subcutaneous pen (Novolog Flexpen U-100 Insulin aspart) pantoprazole 40 mg tablet,delayed 40 mg PO DAILY tab 07/16/21 07/17/21 History release sucralfate 1 gram tablet (Carafate) 1 g PO QID tab 07/16/21 07/17/21 History Exam Const General: cooperative, no acute distress and ill appearing chronically Nutritional Appearance: overweight Orientation: alert, awake and oriented x3 HENMT Head: normal to inspection, normocephalic and atraumatic General nose exam: other (NGT intact, draining bilious fluid, canister emptied on admission, no new d) Mouth: moist mucous membranes abnormal (dry) Resp Effort & Inspection: normal respiratory effort Auscultation: clear to auscultation bilaterally Cardio Rate: regular rate Rhythm: regular rhythm GI Inspection: normal to inspection Palpation: soft and nontender Auscultation: hypoactive bowel sounds Skin General skin exam: no rashes or lesions noted Neuro General: patient alert, patient awake, patient oriented x3 and no focal motor deficits Extrem General: normal to inspection, full ROM and no pedal edema Results Labs Result diagrams: 07/17/21 07:50 07/17/21 07:50 Labs: Laboratory Results - last 24 hr 07/17/21 07/17/21 07/17/21 07:50 07:50 07:50 WBC 15.57 H RBC 6.12 H Hgb 15.3 Hct 47.4 H MCV 77.5 L MCH 25.0 L MCHC 32.3 RDW 17.5 H Plt Count 310 MPV 10.3 Immature Gran % 0.4 Neutrophils % 81.9 Lymphocytes % 8.8 Monocytes % 8.6 Eosinophils % 0.0 Basophils % 0.3 Nucleated RBC % 0 Absolute Neutrophils 12.75 H Absolute Lymphocytes 1.37 Absolute Monocytes 1.34 H Absolute Eosinophils 0.00 Absolute Basophils 0.05 VBG pH 7.46 H VBG pCO2 50 VBG pO2 40 VBG HCO3 36 H VBG Total CO2 31 H VBG O2 Saturation 72 VBG Base Excess 12 H Sodium 139 Potassium 3.7 Chloride 96 L Carbon Dioxide 31.5 Anion Gap 11.5 H BUN 13 Creatinine 0.9 Estimated GFR/1.73 m2 >= 60.00 Glucose 326 H Calcium 11.3 H Magnesium 1.8 Total Bilirubin 0.4 AST 5 L ALT 9 L Alkaline Phosphatase 85 Total Protein 8.0 Albumin 3.6 Lipase 26 Urine Color Urine Clarity Urine pH Ur Specific [place] Urine Protein Urine Ketones Urine Blood Urine Nitrite Urine Bilirubin Urine Urobilinogen Ur Leukocyte Esterase Urine RBC Urine WBC Ur Epithelial Cells Urine Crystals Urine Bacteria Urine Casts Urine Mucus Ur Culture Indicated? Urine Glucose Valproic Acid 07/17/21 07/17/21 07:50 08:30 WBC RBC Hgb Hct MCV MCH MCHC RDW Plt Count MPV Immature Gran % Neutrophils % Lymphocytes % Monocytes % Eosinophils % Basophils % Nucleated RBC % Absolute Neutrophils Absolute Lymphocytes Absolute Monocytes Absolute Eosinophils Absolute Basophils VBG pH VBG pCO2 VBG pO2 VBG HCO3 VBG Total CO2 VBG O2 Saturation VBG Base Excess Sodium Potassium Chloride Carbon Dioxide Anion Gap BUN Creatinine Estimated GFR/1.73 m2 Glucose Calcium Magnesium Total Bilirubin AST ALT Alkaline Phosphatase Total Protein Albumin Lipase Urine Color Yellow Urine Clarity Sl Cloudy Urine pH 8.5 H Ur Specific [place] 1.020 Urine Protein 100 H Urine Ketones 15 H Urine Blood Negative Urine Nitrite Negative Urine Bilirubin Negative Urine Urobilinogen 0.2 Ur Leukocyte Esterase Negative Urine RBC 0-2 Urine WBC 0-2 Ur Epithelial Cells Many Urine Crystals Moderate Amorphous Urine Bacteria Rare Urine Casts Negative Urine Mucus Moderate Ur Culture Indicated? No Urine Glucose 500 H Valproic Acid 105.0 Last Vital Signs Temp 36.7 C 07/17/21 07:32 Pulse 127 H 07/17/21 11:30 Resp 21 07/17/21 11:31 BP 141/102 H 07/17/21 11:30 Pulse Ox 96 07/17/21 11:31
[2021-07-17 13:46] LABS: Source Nasal/Nares
[2021-07-17 16:32] LABS: COVID-19 PCR Negative (Negative)
[2021-07-17] MEDS: Normal Saline Flush 10 ML SYR IVP (17:49)
[2021-07-17] MEDS: diphenhydrAMINE 50 MG/ML VIAL 12.5 MG IVP (18:38)
[2021-07-17] MEDS: Divalproex Sodium 500 MG TAB.ER.24H PO (21:07)
[2021-07-17] MEDS: Acetylcysteine 600 MG CAP 1200 MG PO (21:08)
[2021-07-17] MEDS: QUEtiapine 100 MG TAB 200 MG PO (21:45)
[2021-07-17] MEDS: OLANZapine 10 MG TAB PO (21:45)
[2021-07-17] MEDS: Insulin NPH-Human 300 UNITS/3 ML PEN 20 UNIT SC (21:46)
[2021-07-18] MEDS: Normal Saline 1,000 ML 150 ML IV (00:34)
[2021-07-18] MEDS: Dextrose 50%-Water 25 GM/50 ML SYR IVP (05:22)
[2021-07-18] MEDS: DEXTROSE 5%-LACTATED RINGERS 1,000 ML 100 ML IV ×2 (05:56→16:58)
[2021-07-18 06:47] LABS: Abs Immature Grans 0.04 10^3/uL (0.0-0.06); Absolute Basophil Count 0.04 10^3/uL (0.0-0.2); Absolute Eosinophil Count 0.03 10^3/uL (0.0-0.7); Absolute Lymphocyte Count 2.12 10^3/uL (1.2-3.4); Absolute Monocyte Count 1.07 10^3/uL (0.1-0.8); Absolute Neutrophil Count 6.46 10^3/uL (1.2-6.7); Basophils % 0.4; Eosinophils % 0.3; HCT 35.9 % (36.0-46.0); Immature Grans % 0.4; Lymphocytes % 21.7; MCH 24.7 pg (27.0-33.0); MCHC 30.6 % (32.0-36.0); MCV 80.7 fL (80-95); MPV 10.3 fL (8.0-11.0); Neutrophils % 66.2; Nucleated RBC 0 %; Platelet Count 188 10^3/uL (130-400); RBC 4.45 10^6/uL (3.93-5.22); RDW 17.9 % (11.7-14.6); RDW-SD 52.5 fL; WBC 9.76 10^3/uL (4.4-10.8)
[2021-07-18] MEDS: Insulin Aspart 300 UNITS/3 ML PEN SC ×2 (06:48→18:48)
[2021-07-18 07:16] LABS: ALT < 6 U/L (14-59); AST < 5 U/L (15-37); Albumin 2.6 g/dL (3.4-5.0); Alkaline Phosphatase 57 U/L (46-116); BUN 14 mg/dL (7-18); Bilirubin, Total 0.4 mg/dL (0.2-1.0); CREATININE 0.8 mg/dL (0.55-1.02); Chloride 107 mmol/L (98-107); Glucose 146 mg/dL (74-106); Potassium 3.1 mmol/L (3.5-5.1); Sodium 143 mmol/L (136-145); Total Protein 5.8 g/dL (6.4-8.2)
[2021-07-18 07:50] VITALS: BP 99/56; PULSE 79; RESP 11; TEMP 36.3; O2SAT 93
[2021-07-18] MEDS: Normal Saline Flush 10 ML SYR IVP ×2 (08:17→21:59)
[2021-07-18] MEDS: Acetylcysteine 600 MG CAP 1200 MG PO ×2 (08:17→21:58)
[2021-07-18] MEDS: Divalproex Sodium 500 MG TAB.ER.24H PO ×2 (08:17→21:59)
[2021-07-18] MEDS: Sucralfate 1 GM TAB PO ×3 (08:17→21:58)
[2021-07-18] MEDS: Pantoprazole 40 MG VIAL IVP ×2 (08:17→21:59)
[2021-07-18] MEDS: Divalproex Sodium 250 MG TAB.ER.24H PO (08:17)
--- NOTE | 2021-07-18 10:18 | PDOC.CMIN ---
- If Service Date Differs Date of service: 07/18/21 Time of Service: 10:18 Care Management Initial Assess REASON FOR HOSPITALIZATION:: Intractable vomiting PAST MEDICAL HISTORY/PAST SURGICAL HISTORY:: All Active Problems (Updated 07/17/21 @ 18:04 by Shalini García NP). Discharge planning issues (Acute). Diabetes mellitus type 2 in obese (Acute). Intractable vomiting with nausea (Acute). Tubular adenoma (Acute ~06/10/21). Hyperplastic colon polyp (Acute ~06/10/21). Farrell's 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 (Acute). Erosive esophagitis (Acute). Esophageal ulcer with bleeding (Acute). Chronic iron deficiency anemia (Acute). Chronic diarrhea (Acute). Nausea & vomiting (Acute). Black tarry stools (Acute). Leukocytosis (Acute). Pleural effusion (Acute). Ventral hernia (Acute). Depression (Chronic). Bipolar 1 disorder (Acute). Cholelithiasis (Chronic). Gastroparesis (Acute). Medical History . Alcohol abuse. Anxiety. Farrell's esophagus. Chronic pancreatitis due to acute alcohol intoxication. Diabetes. ETOH abuse. History of pilonidal cyst. Poorly controlled diabetes mellitus. Surgical History . History of section. History of colonoscopy with polypectomy (~06/10/21). History of esophagogastroduodenoscopy (EGD) (~06/10/21). History of hysterectomy. History of tonsillectomy PREVIOUS FUNCTIONAL STATUS/SOCIAL/FAMILY SUPPORTS:: Jennifer lives in [facility] with her , Campos. The couple have two sons: Geronimo and Celso. 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 She now cares for her who is disabled. She enjoys watching television, playing games on the computer, reading, and crocheting. Their son Celso lives locally and is supportive of the couple. CURRENT FUNCTIONAL STATUS:: Jennifer was lying in bed when CM met with her. She was a bit sleepy as she had had an EGD earlier. Her Campos was visiting at the time. Both Jennifer and Campos inquired about a possible discharge for tomorrow, but the provider has not been able to meet with her yet, so the information is not available. ADVANCE DIRECTIVES:: none on file Has patient been provided with info about the portal/API?: Yes Did the patient sign up for the portal?: No CODE STATUS:: Full Code INSURANCE COVERAGE / FINANCIAL ISSUES:: Medicaid CURRENT HOME/COMMUNITY SERVICES/EQUIPMENT:: none PRIMARY CARE PHYSICIAN:: Ana Gillespie POTENTIAL DISCHARGE NEEDS:: follow up with PCP and plan of care PATIENT/FAMILY EDUCATION NEEDS:: Review of discharge instructions, limitations, follow up plan, activity, medications, and discuss [employer] Me [employer] TRANSPORTATION:: via private vehicle with family PLAN:: Jennifer will likely be discharged home with no new services. She will follow up with her PCP and plan of care and transport with family. CM will continue to support Jennifer and her discharge needs.
--- NOTE | 2021-07-18 11:00 | W.SURGCON ---
Date of service: 07/18/21 Time of Service: 11:00 Assessment and Plan Assessment and plan (1) Intractable vomiting with nausea: Status: Acute Assessment and plan: After discussing all risks benefits and alternatives with the patient informed consent was obtained for repeat EGD today. -Further recommendations to follow after scope -Continue Carafate and PPI, avoid NSAIDS, smoking, alcohol -Repeat CBC in AM to ensure Hb stability (2) Farrell's 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: Status: Acute (3) Erosive esophagitis: Status: Acute (4) Diabetes mellitus type 2 in obese: Status: Acute (5) Esophageal ulcer with bleeding: Status: Acute (6) Chronic iron deficiency anemia: Status: Acute (7) Nausea & vomiting: Status: Acute History of Present Illness Narrative: 61 year old female with a history of severe esophagitis and esophageal ulcer as well as long-standing Farrell's esophagus who presented to the emergency room complaining of 2 days of intractable nausea and vomiting and diarrhea. She reports randomly vomiting on several occurrences over the last month. Denies recent sick contacts or bad food exposure. Patient underwent an EGD on 06/10/21 during which the previously states diagnoses were made. She was prescribed carafate and PPI and reports questionable compliance. CT of the chest abdomen and pelvis was performed revealing evidence of worsening esophageal soft tissue edema and irregularity. Surgery was consulted for repeat EGD in light of her presumed failed medical management with worsening symptoms. Consults Consult date: 07/18/21 Review of Systems All systems reviewed & are unremarkable except as noted in HPI and below ENT Ears, Nose, Mouth, and Throat: Denies odynophagia Cardiovascular Cardiovascular: Denies chest pain and Denies dyspnea Respiratory Respiratory: Reports cough, Denies hemoptysis and Denies dyspnea Gastrointestinal Gastrointestinal: Denies abdominal pain, Reports belching, Reports early satiety, Reports dyspepsia, Reports diarrhea, Reports nausea, Denies odynophagia, Reports vomiting and Denies hematemesis [facility] All Active Problems (Updated 07/17/21 @ 18:04 by Shalini García NP) Discharge planning issues (Acute) Diabetes mellitus type 2 in obese (Acute) Intractable vomiting with nausea (Acute) Tubular adenoma (Acute ~06/10/21) Hyperplastic colon polyp (Acute ~06/10/21) Farrell's 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 (Acute) Erosive esophagitis (Acute) Esophageal ulcer with bleeding (Acute) Chronic iron deficiency anemia (Acute) Chronic diarrhea (Acute) Nausea & vomiting (Acute) Black tarry stools (Acute) Leukocytosis (Acute) Pleural effusion (Acute) Ventral hernia (Acute) Depression (Chronic) Bipolar 1 disorder (Acute) Cholelithiasis (Chronic) Gastroparesis (Acute) Medical History Alcohol abuse Anxiety Farrell's esophagus Chronic pancreatitis due to acute alcohol intoxication Diabetes ETOH abuse History of pilonidal cyst Poorly controlled diabetes mellitus Surgical History History of section History of colonoscopy with polypectomy (~06/10/21) History of esophagogastroduodenoscopy (EGD) (~06/10/21) History of hysterectomy History of tonsillectomy Social History Smoking/Tobacco Use Status: Former Tobacco Use Quit Date: 02/07/21 Smoking risk assessment performed?: Yes Alcohol Intake: former Drug use: Never Substance use type: does not use Details: pt. denies history of ETOH abuse Do you feel safe at home: Yes Do you feel safe in your relationship?: Yes Additional Social history: Unable to asess as spouse Rogelio in the room. Exam Const General: cooperative, comfortable and no acute distress Nutritional Appearance: average body habitus HENMT Head: normal to inspection and other (NG tube in place) Eyes General: appearance normal, both eyes and all related structures Eyelids: eyelids normal Conjunctivae: conjunctivae normal Sclera: sclerae normal Resp Effort & Inspection: normal respiratory effort, able to speak in complete sentences, no audible wheezes and cough Cardio Rate: regular rate Rhythm: regular rhythm Neuro General: patient alert, patient awake and patient oriented x3 Cognition: normal cognition Speech: speech normal Results Last Vital Signs Temp 97.3 F L 07/18/21 07:50 Pulse 79 07/18/21 07:50 Resp 11 L 07/18/21 07:50 BP 99/56 L 07/18/21 07:50 Pulse Ox 93 07/18/21 07:50 Labs Result diagrams: 07/18/21 06:20 07/18/21 06:20 Labs: Laboratory Results - last 24 hr 07/17/21 07/18/21 07/18/21 13:45 06:20 06:20 WBC 9.76 D RBC 4.45 Hgb 11.0 L D Hct 35.9 L D MCV 80.7 D MCH 24.7 L MCHC 30.6 L RDW 17.9 H Plt Count 188 D MPV 10.3 Immature Gran % 0.4 Neutrophils % 66.2 Lymphocytes % 21.7 Monocytes % 11.0 Eosinophils % 0.3 Basophils % 0.4 Nucleated RBC % 0 Absolute Neutrophils 6.46 Absolute Lymphocytes 2.12 Absolute Monocytes 1.07 H Absolute Eosinophils 0.03 Absolute Basophils 0.04 Sodium 143 Potassium 3.1 L Chloride 107 Carbon Dioxide 29.0 Anion Gap 7.0 BUN 14 Creatinine 0.8 Estimated GFR/1.73 m2 >= 60.00 Glucose 146 H D Calcium 9.0 Total Bilirubin 0.4 AST < 5 L ALT < 6 L Alkaline Phosphatase 57 Total Protein 5.8 L Albumin 2.6 L COVID-19 Source Nasal/Nares SARS-CoV-2 (PCR) Negative
[2021-07-18] MEDS: POTASSIUM CHLORIDE 20 MEQ/100 ML BAG 50 MEQ IVPB ×2 (11:15→13:03)
--- NOTE | 2021-07-18 12:20 | W.INDIABCONS ---
Date of service: 07/18/21 Time of Service: 12:20 Diabetes Inpatient Consult Reason for Visit: dm DESCRIPTION/ASSESSMENT: 61 year old female admitted with n/v with hx of Dm2, obesity, barrets esophagus, erosive esophagitis. Recenly had gastric emptying study- normal emptying however, recent EGD indicates otherwise. Most recent A1C (06/11/21) 6.1%indicates excellent diabetic control. Home Dm meds: 5 mg gliburide, 40 u NPH at HS, 5 u aspart at meals. Attempted to met with Jennifer today, however, she was alseep. NPO with NG tube. Concern that NPH insulin putting pt at risk for weight gain and hypoglycemia. May be taking NPH due to financial concerns. Patient would benefit from a Graham 2 continuous glucose monitor at discharge as may be able to reduce reliance on NPH with extra attention on glycemic management through out day. INTERVENTION: will provide diabetes self management education when able. Left handout and my contact information on side table. PLAN: will follow up and support during stay Time Spent in Nutritional Counseling and Treatment: 0
[2021-07-18 13:29] VITALS: BP 121/66; PULSE 71; RESP 18; TEMP 37.2; O2SAT 94
--- NOTE | 2021-07-18 13:46 | W.ANESPRE ---
General Info Date of Service Date Performed: 07/18/21 Height: 5 ft 1 in Weight: 77.111 kg Body Mass Index (BMI): 32.1 Surgical Procedure: Operation Date: 07/18/21 14:05 Proposed Procedure Side Surgeon p Gastroscopy Kavita Viera DO Meds Allergies and Home Medications Allergies Allergy/AdvReac Type Severity Reaction Status Date / Time metformin Allergy Unknown Unverified 07/17/21 07:35 meperidine AdvReac gi upset Unverified 07/17/21 07:35 Home Medication Medication Instructions Recorded insulin NPH isoph U-100 human 100 40 unit SUBCUT HS 03/04/21 unit/mL (3 mL) subcutaneous pen (Humulin N NPH U-100 Insulin KwikPen) quetiapine 100 mg tablet 200 mg PO HS 04/22/21 acetylcysteine 600 mg capsule 1,200 mg PO BID cap 05/16/21 bismuth subsalicylate 262 mg/15 mL 524 mg PO DAILY PRN ml 05/16/21 oral suspension (Pepto-Bismol) divalproex 250 mg tablet,extended 250 mg PO DAILY tab 05/16/21 release 24 hr (Depakote ER) glyburide 5 mg tablet 15 mg PO DAILY tab 05/16/21 divalproex 500 mg tablet,extended 500 mg PO BID 06/10/21 release 24 hr (Depakote ER) olanzapine 10 mg tablet (Zyprexa) 10 mg PO HS 06/10/21 insulin aspart U-100 100 unit/mL 5 unit SUBCUT TID 07/16/21 (3 mL) subcutaneous pen (Novolog Flexpen U-100 Insulin aspart) pantoprazole 40 mg tablet,delayed 40 mg PO DAILY tab 07/16/21 release sucralfate 1 gram tablet (Carafate) 1 g PO QID tab 07/16/21 Current Visit Medications: Current Medications Generic Name Dose Route Start Last Admin Trade Name Freq PRN Reason Stop Dose Admin Acetylcysteine 1,200 mg 07/17/21 20:00 07/18/21 08:17 Acetylcysteine 600 Mg Cap PO 1,200 mg BID LAZARUS Administration Dextrose 0 gm 07/17/21 12:35 Glucose 40% Oral Solution 15 Gm/37.5 Gm Tube PO DIRECTED PRN Dextrose/Water 0 gm 07/17/21 12:35 07/18/21 05:22 Dextrose 50%-Water 25 Gm/50 Ml Syr IVP 25 gm DIRECTED PRN Administration Dimethicone/Zinc Oxide 0 gm 07/17/21 12:32 Clara Protect Cream 142 Gm Tube TP PRN PRN Diphenhydramine HCl 12.5 mg 07/17/21 17:58 Diphenhydramine 50 Mg/Ml Vial IVP Q6H PRN PRN Divalproex Sodium 500 mg 07/17/21 20:00 07/18/21 08:17 Divalproex Sodium 500 Mg Tab.Er.24h PO 500 mg BID LAZARUS Administration Divalproex Sodium 250 mg 07/18/21 08:30 07/18/21 08:17 Divalproex Sodium 250 Mg Tab.Er.24h PO 250 mg DAILY LAZARUS Administration Erythromycin Lactobionate 250 100 mls @ 200 mls/hr 07/17/21 16:00 07/18/21 08:55 mg/ Sodium Chloride IVPB 200 mls/hr Q8H LAZARUS Administration Sodium Chloride 1,000 mls @ 150 mls/hr 07/17/21 15:45 07/18/21 00:34 Saline 1000ml Bag IV 150 mls/hr INFUSION LAZARUS Administration Dextrose/Lactated Ringer's 1,000 mls @ 100 mls/hr 07/18/21 05:45 07/18/21 05:56 Dextrose 5%-Lr IV 100 mls/hr INFUSION LAZARUS Administration Potassium Chloride 20 meq in 100 mls @ 50 mls/hr 07/18/21 10:30 07/18/21 13:03 IVPB 07/18/21 14:29 50 mls/hr Q2H LAZARUS Administration IV Miscellaneous Supplies 1 each 07/17/21 07:45 Iv Access IV DIRECTED LAZARUS Insulin Aspart 0 units 07/17/21 13:00 07/18/21 13:04 Insulin Aspart 300 Units/3 Ml Pen SC Not Given Q6H LAZARUS Protocol Olanzapine 10 mg 07/17/21 22:00 07/17/21 21:45 Olanzapine 10 Mg Tab PO 10 mg HS LAZARUS Administration Pantoprazole Sodium 40 mg 07/17/21 20:00 07/18/21 08:17 Pantoprazole 40 Mg Vial IVP 40 mg BID LAZARUS Administration Quetiapine Fumarate 200 mg 07/17/21 22:00 07/17/21 21:45 Quetiapine 100 Mg Tab PO 200 mg HS LAZARUS Administration Sodium Chloride 0 ml 07/17/21 07:36 07/18/21 08:17 Normal Saline Flush 10 Ml Syr IVP 40 ml PRN PRN Administration Sucralfate 1 gm 07/17/21 16:00 07/18/21 11:50 Sucralfate 1 Gm Tab PO Not Given QID LAZARUS Trimethobenzamide HCl 200 mg 07/17/21 17:57 Trimethobenzamide 200 Mg/2 Ml Vial IM QID PRN PRN PFSH Active Problems Active Problems: Problem Status Onset Code Discharge planning issues Z02.9 Diabetes mellitus type 2 in obese E11.69, E66.9 Intractable vomiting with nausea R11.2 Tubular adenoma ~06/10/21 D36.9 Hyperplastic colon polyp ~06/10/21 K63.5 Farrell's 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 K22.70 Erosive esophagitis K22.10 Esophageal ulcer with bleeding K22.11 Chronic iron deficiency anemia D50.9 Chronic diarrhea K52.9 Nausea & vomiting R11.2 Black tarry stools K92.1 Leukocytosis D72.829 Pleural effusion J90 Ventral hernia K43.9 Depression F32.9 Bipolar 1 disorder F31.9 Cholelithiasis K80.20 Gastroparesis K31.84 Atrial flutter I48.92 Medical History Medical History Alcohol abuse Anxiety Farrell's esophagus Chronic pancreatitis due to acute alcohol intoxication Diabetes ETOH abuse History of pilonidal cyst Poorly controlled diabetes mellitus Medical History Comments:: LH tremor. 08:[address] Purcell order Surgical History Surgical History History of section History of colonoscopy with polypectomy (~06/10/21) History of esophagogastroduodenoscopy (EGD) (~06/10/21) History of hysterectomy History of tonsillectomy Tobacco Smoking/Tobacco Use Status: Former Tobacco Use Alcohol Alcohol Intake: former Substance Use Substance use: Never Substance use type: does not use Details: pt. denies history of ETOH abuse Vital Signs and Lab Results Vital Signs Most Recent Vital Signs in EMR: Most Recent Vital Signs Temp Pulse Resp BP Pulse Ox 37.2 C 71 18 121/66 94 07/18/21 13:29 07/18/21 13:29 07/18/21 13:29 07/18/21 13:29 07/18/21 13:29 Point of Care Results Point of Care Results: Finger Stick Blood Glucose 117 07/18/21 13:04 Lab Results Result Diagrams: 07/18/21 06:20 07/18/21 06:20 Blood Type / Crossmatch: No Data to Display Complete Blood Count: White Blood Count 9.76 10^3/uL (4.4-10.8) 07/18/21 06:20 07/18/21 Red Blood Count 4.45 10^6/uL (3.93-5.22) 07/18/21 06:20 07/18/21 Hemoglobin 11.0 g/dL (11.2-15.7) L 07/18/21 06:20 07/18/21 Hematocrit 35.9 % (36.0-46.0) L 07/18/21 06:20 07/18/21 Platelet Count 188 10^3/uL (130-400) 07/18/21 06:20 07/18/21 Complete Metabolic Panel: Sodium Level 143 mmol/L (136-145) 07/18/21 06:20 07/18/21 Potassium Level 3.1 mmol/L (3.5-5.1) L 07/18/21 06:20 07/18/21 Chloride Level 107 mmol/L (98-107) 07/18/21 06:20 07/18/21 Carbon Dioxide Level 29.0 mmol/L (21.0-32.0) 07/18/21 06:20 07/18/21 Blood Urea Nitrogen 14 mg/dL (7-18) 07/18/21 06:20 07/18/21 Creatinine 0.8 mg/dL (0.55-1.02) 07/18/21 06:20 07/18/21 Estimated GFR/1.73 m2 >= 60.00 (mL/min/1.73m2) 07/18/21 06:20 07/18/21 Magnesium Level 1.8 mg/dL (1.8-2.4) 07/17/21 07:50 07/17/21 Calcium Level 9.0 mg/dL (8.5-10.1) 07/18/21 06:20 07/18/21 Albumin 2.6 g/dL (3.4-5.0) L 07/18/21 06:20 07/18/21 Glucose Level 146 mg/dL (74-106) H 07/18/21 06:20 07/18/21 Liver Function Panel: Alanine Aminotransferase (ALT/SGPT) < 6 U/L (14-59) L 07/18/21 06:20 07/18/21 Aspartate Amino Transf (AST/SGOT) < 5 U/L (15-37) L 07/18/21 06:20 07/18/21 Coagulation Panel: No Data to Display Cardiac Panel: No Data to Display Arterial Blood Gas: No Data to Display Venous Blood Gas: Venous Blood pH 7.46 (7.31-7.41) H 07/17/21 07:50 07/17/21 Venous Blood Partial Pressure O2 40 mmHg 07/17/21 07:50 07/17/21 Venous Blood Partial Pressure CO2 50 mmHg (41-51) 07/17/21 07:50 07/17/21 Venous Blood Oxygen Saturation 72 % 07/17/21 07:50 07/17/21 Venous Blood HCO3 36 mmol/L (23-28) H 07/17/21 07:50 07/17/21 Venous Blood Base Excess 12 mmol/L (-2-3) H 07/17/21 07:50 07/17/21 Venous Blood Total Carbon Dioxide 31 mmol/L (24-29) H 07/17/21 07:50 07/17/21 Pancreas Panel: Lipase 26 U/L (73-393) 07/17/21 07:50 07/17/21 Thyroid Panel: No Data to Display Infectious Disease: Coronavirus (COVID-19)(PCR) Negative (Negative) 07/17/21 13:45 07/17/21 Coronavirus 2019 Source Nasal/Nares 07/17/21 13:45 07/17/21 Blood Cultures: No Data to Display Toxicology Panel: No Data to Display Anesthesia Assessment and Plan Anesthesia History Personal History: No History of Anesthesia Complications Family History: Family History Unknown Exercise Tolerance Exercise Tolerance: Metabolic Equivalents>4 Pertinent Negatives Pertinent Negatives: No Major Cardiovascular Symptoms or Complaints, No Major Pulmonary Symptoms or Complaints and No History of CVA/TIA Cardiac & Pulmonary Exam Cardiac Exam: Normal S1/S2 Heart Sounds Pulmonary Exam: Clear Bilateral Breath Sounds Implantable Cardiac Device Does patient have a Pacemaker or an ICD?: No Airway Exam Known Difficult Airway: No Mallampati Class: 2 Mouth Opening: Normal (> 3cm) Thyromental Distance: Greater than 3 cm Neck Range of Motion: Full ROM Neck Circumference: Normal Teeth Condition: Normal Dentition ASA Classification ASA Score: ASA 2 Emergency Case?: No NPO Status NPO Status: NPO Clears >2 hours, Solids >8 hours Anesthesia Plan Resuscitation Status: Full Code Anesthesia Technique: General Anesthesia Airway Planned: Natural Airway Monitors Used: Standard Monitors
[2021-07-18 13:48] VITALS: BMI 32.1
--- NOTE | 2021-07-18 14:00 | STOM_PTH ---
PATIENT: Jennifer Irving LOC: U#:[id number] AGE/SX: 61/F ROOM: 218 RE07/17/[address]: Erin Damon : 1960 BED: A DIS: 07/19/2021 SPEC #: [id number] RECD: 07/18/21 17:25 STATUS: CAT[place]INA [place] #: [id number] JAI: 07/18/21 14:[address]: Erin Damon DEPT: Surgical Specimen RECD BY: Estephania Felix ENTERED: 07/18/21 17:26 SP TYPE: STOMACH OTHR DR: Merly Purcell Abby Tissues: 1 - STOMACH BIOPSY 2 - ESOPHAGUS BIOPSY Procedures: GROSS AND MICRO LEVEL 4 Comments: [id number]
--- NOTE | 2021-07-18 14:22 | ROE_ITS ---
Date of service: 07/18/21 Time of Service: 14:23 Operative Note Operative Note DATE OF PROCEDURE: 07/18/21 PRE-OP DIAGNOSIS: intractable nausea and vomiting POST-OP DIAGNOSIS: other esophagitis, esophageal ulcer, gastritis, gastric ulcer PROCEDURE: esophagagogastroduodenoscopy SURGEON: Kavita Viera ANESTHESIA TYPE: MAC Refer to Anesthesia Record ESTIMATED BLOOD LOSS: 0 PATHOLOGY: other (gastric antrum, mid-distal esophagus) COMPLICATIONS: None Patient was transported to: PACU Patient's condition: stable Implants: None Indications: Patient with history of esophageal ulcer and severe erosive esophagitis with intractable nausea and vomiting, acute anemia and failed medical management with worsening mucosal irregularity on CT scan. Findings: Persistent severe erosive esophagitis from the mid to distal esophagus with large esophageal ulcer, gastritis with small gastric ulceration Procedure Description: After informed consent was obtained, the patient was properly identified and taken back into the operating room.She was kept on her stretcher and provided with oral lidocaine as well as MAC anesthesia. Once sedated adequately, a bite block was placed. The gastroscope was introduced into the patient's oropharynx which appeared normal and the esophagus was directly intubated. Starting from the mid esophagus there was evidence of severe esophagitis as well as a large esophageal ulceration in between the mid and distal esophagus. Biopsies were taken from this area to rule out overt presence of malignancy. The central portion was hemostatic, dark purple, and surrounded by erythematous friable esophageal mucosa. The gastric cardia showed had area that appeared to show irritation presumably from NG tube in the presence of mucosal friability. The stomach was insufflated and showed evidence of diffuse gastritis. There was a small area of ulceration within the greater curvature of the gastric body. Biopsies were taken from the antrum to rule out H. pylori. The pylorus and first portion of the duodenum appeared normal without evidence of ulceration. No significant fluid was present within the stomach. The scope was retroflexed and no further ulceration was visible in the fundys. Grade 1 esophageal varices were seen in the distal esophagus. The scope was removed slowly and esophageal biopsies were carefully taken upon scope exit. The biopsy sites were hemostatic upon scope retraction. The scope was completely removed, the NG tube was also removed as this was no longer necessary. The patient tolerated the procedure well and will be transported to PACU in stable condition before returning to the floor. Patient needs to completely cut out NSAIDS, alcohol and tobacco from her lifestyle and remain medically compliant if she desires recovery from these ulcerations. She is high risk for developing malignancy if she remains non- compliant with these recommendations. Our office will follow up pathology results with the patient once resulted.
--- NOTE | 2021-07-18 14:43 | W.ANESPOSTOP ---
Postoperative Evaluation Date, Time and Location Date Performed: 07/18/21 Time Performed: 14:43 Patient Location: PACU Vital Signs Most Recent Imported Vital Signs: Most Recent Vital Signs Temp Pulse Resp BP Pulse Ox 37.2 C 71 18 121/66 94 07/18/21 13:29 07/18/21 13:29 07/18/21 13:29 07/18/21 13:29 07/18/21 13:29 Pain Score Most Recent Pain Score: Most Recent Pain Score Pain Level 0 07/18/21 13:29 Assessment Mental Status: Awake (Alert & Oriented to Patient Baseline) Airway and Respiratory Function: Patent airway with normal (patient baseline) respiratory exam Cardiovascular Function: Hemodynamically Stable Hydration Status: Adequately Hydrated Nausea & Vomiting: No Nausea or Vomiting Pain: Pt. Denies Any Pain Peripheral Nerve Block: Patient did not receive a nerve block
--- NOTE | 2021-07-18 18:28 | W.PM.PROGNOT ---
Date of Service Date of service: 07/18/21 Time of Service: 18:28 Assessment and Plan Assessment and plan (1) Intractable vomiting with nausea: Start date: 07/18/21 Start time: 18:30 Status: Resolved Assessment and plan: Patient feeling better. no n/v. EGD with surgery. Found to have 3 ulcers. On PPI BID and Carafate. Diet started advance as tolerated. Already asking to go home. (2) Farrell's 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: Start date: 07/18/21 Start time: 18:31 Status: Acute Assessment and plan: as above (3) Erosive esophagitis: Start date: 07/18/21 Start time: 18:32 Status: Acute Assessment and plan: found during EGD and on imaging (4) Diabetes mellitus type 2 in obese: Start date: 07/18/21 Start time: 18:32 Status: Acute Assessment and plan: Started on CHO diet SSI insulin monitor fingersticks (5) Chronic iron deficiency anemia: Start date: 07/18/21 Start time: 18:35 Status: Acute Assessment and plan: Patient was normal hemoglobin dropped overnight, likely dilutional, though she does have a hx of low hemoglobins discussed Dr. Barber Subjective Subjective Patient reports: no new complaints and feels better Interval history since last seen: EGD this afternoon, feeling better. Diet advance as tolerated. She would like to go home tomorrow. Denies pain. NGT removed. Exam Const General: cooperative, comfortable and no acute distress Nutritional Appearance: average body habitus HENMT Head: normal to inspection and other (NG tube in place) Eyes General: appearance normal, both eyes and all related structures Eyelids: eyelids normal Conjunctivae: conjunctivae normal Sclera: sclerae normal Neck Neck: full ROM Resp Effort & Inspection: normal respiratory effort, able to speak in complete sentences, no audible wheezes and cough Cardio Rate: regular rate Rhythm: regular rhythm Neuro General: patient alert, patient awake and patient oriented x3 Cognition: normal cognition Speech: speech normal Objective Last Vital Signs Temp 37.2 C 07/18/21 13:29 Pulse 71 07/18/21 13:29 Resp 18 07/18/21 13:29 BP 121/66 07/18/21 13:29 Pulse Ox 94 07/18/21 13:29 Laboratory Results - last 24 hr 07/18/21 07/18/21 06:20 06:20 WBC 9.76 D RBC 4.45 Hgb 11.0 L D Hct 35.9 L D MCV 80.7 D MCH 24.7 L MCHC 30.6 L RDW 17.9 H Plt Count 188 D MPV 10.3 Immature Gran % 0.4 Neutrophils % 66.2 Lymphocytes % 21.7 Monocytes % 11.0 Eosinophils % 0.3 Basophils % 0.4 Nucleated RBC % 0 Absolute Neutrophils 6.46 Absolute Lymphocytes 2.12 Absolute Monocytes 1.07 H Absolute Eosinophils 0.03 Absolute Basophils 0.04 Sodium 143 Potassium 3.1 L Chloride 107 Carbon Dioxide 29.0 Anion Gap 7.0 BUN 14 Creatinine 0.8 Estimated GFR/1.73 m2 >= 60.00 Glucose 146 H D Calcium 9.0 Total Bilirubin 0.4 AST < 5 L ALT < 6 L Alkaline Phosphatase 57 Total Protein 5.8 L Albumin 2.6 L
[2021-07-18 19:35] VITALS: BP 110/60; PULSE 83; RESP 18; O2SAT 97
[2021-07-18] MEDS: QUEtiapine 100 MG TAB 200 MG PO (21:58)
[2021-07-18] MEDS: OLANZapine 10 MG TAB PO (21:58)
[2021-07-18 22:11] VITALS: BP 105/58; PULSE 88; RESP 16; TEMP 36.4; O2SAT 90
[2021-07-19 07:21] LABS: Abs Immature Grans 0.02 10^3/uL (0.0-0.06); Absolute Basophil Count 0.04 10^3/uL (0.0-0.2); Absolute Eosinophil Count 0.06 10^3/uL (0.0-0.7); Absolute Lymphocyte Count 2.12 10^3/uL (1.2-3.4); Absolute Monocyte Count 0.58 10^3/uL (0.1-0.8); Absolute Neutrophil Count 3.27 10^3/uL (1.2-6.7); Basophils % 0.7; HGB 10.5 g/dL (11.2-15.7); Immature Grans % 0.3; Lymphocytes % 34.8; MCHC 30.9 % (32.0-36.0); MPV 10.1 fL (8.0-11.0); Monocytes % 9.5; Neutrophils % 53.7; Nucleated RBC 0 %; Platelet Count 169 10^3/uL (130-400); RDW 17.5 % (11.7-14.6); RDW-SD 52.3 fL; WBC 6.09 10^3/uL (4.4-10.8)
[2021-07-19 07:35] VITALS: BP 135/75; PULSE 82; RESP 19; TEMP 36.4; O2SAT 93
[2021-07-19 07:36] LABS: Anion Gap 5.5 mmol/L (3-11); BUN 8 mg/dL (7-18); CO2 29.5 mmol/L (21.0-32.0); CREATININE 0.6 mg/dL (0.55-1.02); Calcium 9.1 mg/dL (8.5-10.1); Chloride 110 mmol/L (98-107); Glucose 87 mg/dL (74-106); Magnesium 1.9 mg/dL (1.8-2.4); Potassium 3.5 mmol/L (3.5-5.1); Sodium 145 mmol/L (136-145)
[2021-07-19] MEDS: Pantoprazole 40 MG VIAL IVP (08:00)
[2021-07-19] MEDS: Normal Saline Flush 10 ML SYR IVP (08:00)
[2021-07-19] MEDS: Divalproex Sodium 250 MG TAB.ER.24H PO (08:01)
[2021-07-19] MEDS: Acetylcysteine 600 MG CAP 1200 MG PO (08:01)
[2021-07-19] MEDS: Divalproex Sodium 500 MG TAB.ER.24H PO (08:01)
[2021-07-19] MEDS: Sucralfate 1 GM TAB PO ×2 (08:01→11:58)
--- NOTE | 2021-07-19 10:35 | W.PM.DS.N ---
Date of service: 07/19/21 Time of Service: 11:15 DS: Diagnosis Discharge Diagnosis (1) Intractable vomiting with nausea: Start date: 07/19/21 Start time: 11:15 Status: Resolved Asessment and Plan: Tolerating diet. Found to have: Persistent severe erosive esophagitis from the mid to distal esophagus with large esophageal ulcer, gastritis with small gastric ulceration Surgery recommends patient needs to completely cut out NSAIDS, alcohol and tobacco from her lifestyle and remain medically compliant if she desires recovery from these ulcerations. She is high risk for developing malignancy if she remains non-compliant with these recommendations. Our office will follow up pathology results with the patient once resulted. I have spoken to her about these things. She states she does not drink only socially, I told her she can not drink at all, she also denied smoking. I explained that even smoking needs to stop. Recommend soft bland diet for a couple of days then advance slowly, avoid caffiene, spicy food and anything acidic. Patient was agreeable. Will send home on carafate and PPI BID with f/u with surgery. 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 (5) Chronic iron deficiency anemia: Start date: 07/19/21 Start time: 11:15 Status: Acute Asessment and Plan: Will defer to PCP for further management. hemoglobin is 10.[address] Barber Discharge Plan Disposition Patient Disposition: HOME Condition: Improving Discharge Details Admit Date/Time: 07/17/21 12:32 Admit Provider: Erin Damon Attending Provider: Erin Damon Primary Care Provider: Ana Gillespie Hospital Course Hospital Course: 61 year old female who presented to the ED with nausea and vomiting.?She reported she had diarrhea 2 days ago, none since.?She had similar symptoms and was admitted jun 10, 2021 under surgical services.? She underwent an upper and lower endoscopy and was found to have erosive esophagitis, esophageal ulcer and gastritis.?She was discharged on protonix and carafate and followed by Dr Dejesus at [facility] with plan for rescope in September.?She was noted to have a fluid filled stomach at time of EGD despite being NPO as directed.? A gastric emptying study was completed on 06/11/2021 which was unremarkable with no delayed emptying observed. She has had no fever or chills, no abdominal pain,? no sick contacts with similar symptoms. NGT was placed in the ED and she over 250 out. Surgery was consulted EGD was done. She was found to have mid esophagus there was evidence of severe esophagitis as well as a large esophageal ulceration in between the mid and distal esophagus, Biopsies were taken from this area to rule out overt presence of malignancy. The central portion was hemostatic, dark purple, and surrounded by erythematous friable esophageal mucosa.. NGT was pulled by surgery and she was placed on a diet, clears advanced to bland. She is feeling better and being discharged home. She was able to tolerate her breakfast and lunch. See above about discussion on diet, alcohol and nicotine. Patient agreeable to plan ? Home Meds and New Rx's Prescriptions: New trimethobenzamide 300 mg capsule 300 mg PO Q6H PRNQty: 20 0RF Rx Instructions: Take as needed for nausea pantoprazole [Protonix] 40 mg tablet,delayed release (DR/EC) 40 mg PO BID Qty: 60 0RF Continued glyburide 5 mg tablet 15 mg PO DAILY 0RF acetylcysteine 600 mg capsule 1,200 mg PO BID 0RF divalproex [Depakote ER] 250 mg tablet extended release 24 hr 250 mg PO DAILY 0RF bismuth subsalicylate [Pepto-Bismol] 262 mg/15 mL suspension 524 mg PO DAILY PRN0RF Rx Instructions: do not exceed 8 doses in a 24 hour period insulin aspart U-100 [Novolog Flexpen U-100 Insulin] 100 unit/mL (3 mL) insulin pen 5 unit subcut TID 0RF Rx Instructions: Inject 1 unit subcutaneously twice a day as directed, inject 2 units for BG 151-250, 3 units for BG 251-300, 4 units for BG 301-350 sucralfate [Carafate] 1 gram tablet 1 g PO QID 0RF Humulin N NPH Insulin KwikPen 100 unit/mL (3 mL) insulin pen 40 unit SUBCUT HS 0RF Label Comments: INJECT 40 UNITS UNDER THE SKIN EVERY NIGHT quetiapine 100 mg tablet 200 mg PO HS 0RF olanzapine [Zyprexa] 10 mg Tablet 10 mg PO HS 0RF divalproex [Depakote ER] 500 mg Tablet Extended Release 24 Hr 500 mg PO BID 0RF Discontinued pantoprazole 40 mg tablet,delayed release (DR/EC) 40 mg PO DAILY 0RF Rx Instructions: Take 2 tabs twice a day for 30 days and then 1 tab twice a day Discharge Instructions Instructions: Diet for Stomach Ulcers and Gastritis (GEN), Farrell Esophagus (DC), Corrosive Esophagitis (DC), Esophagitis (DC) Additional Instructions: Per surgery completely cut out NSAIDS, alcohol and tobacco from your lifestyle and remain medically compliant if you desire recovery from these ulcerations. you are at high risk for developing malignancy (cancer) if you remains non-compliant with these recommendations Stick with a soft bland diet until feeling better, avoid spicy, acidic foods, avoid caffeine, follow up with surgery as scheduled. Stand Alone Forms: Nursing Discharge Form Activity:: Activity as Tolerated Equipment/Supplies:: No Equipment Needed Diet:: Carb Counting Discharge Orders Discharge Orders: Discharge Order (Routine); Ordered 07/19/21 Ordered By: Aicha Faust DS: Summary Time Spent with Patient providing and/or coordinating discharge services: Less than 30 minutes Status at Discharge Functional status at discharge: independent ambulation Overall status at discharge: patient is progressing back to baseline Mental Status: mental status grossly normal Speech and Movement: speech and movement normal Mood: congruent mood Affect: normal affect Exam Const General: cooperative, comfortable and no acute distress Nutritional Appearance: average body habitus [facility] Head: normal to inspection Eyes General: appearance normal, both eyes and all related structures Eyelids: eyelids normal Conjunctivae: conjunctivae normal Sclera: sclerae normal Neck Neck: full ROM Resp Effort & Inspection: normal respiratory effort, able to speak in complete sentences, no audible wheezes and cough Cardio Rate: regular rate Rhythm: regular rhythm Neuro General: patient alert, patient awake and patient oriented x3 Cognition: normal cognition Speech: speech normal Psych Mental Status: mental status grossly normal Speech and Movement: speech and movement normal Mood: congruent mood Affect: normal affect DS: Data Vitals/I&O Vitals and I&O: Vital Signs Temperature 36.4 C L 07/19/21 07:35 Temperature Source Tympanic 07/19/21 07:35 Pulse 82 07/19/21 07:35 Pulse Rhythm Regular 07/19/21 08:00 Pulse 117 H 07/17/21 14:50 Respiratory Rate 19 07/19/21 07:35 Respiratory Effort Non-Labored 07/19/21 08:00 Respiratory Depth Normal 07/19/21 08:00 Respiratory Pattern Normal 07/19/21 08:00 Blood Pressure 135/75 07/19/21 07:35 Blood Pressure Mean 85 07/17/21 14:45 Blood Pressure Position Supine 07/17/21 07:32 Pulse Oximetry 93 07/19/21 07:35 Oxygen Delivery Method Nasal Cannula 07/19/21 07:35 Oxygen Flow Rate 2 07/19/21 07:35 Pain Level 0 07/18/21 22:11 Comment 07/17/21 23:43 Intake & Output 07/18/21 07/18/21 07/19/21 11:59 23:59 11:59 Intake Total 1157.5 / 3227.5 2070 / 3227.5 460 / 460 Output Total 470 / 845 375 / 845 1500 / 1500 Balance 687.5 / 2382.5 1695 / 2382.5 -1040 / -1040 Weight 77.111 kg Intake: IV 1157.5 / 2747.5 1590 / 2747.5 100 / 100 Oral 480 / 480 360 / 360 Output: Gastric Drainage 220 / 220 Left Nare 220 / 220 Urine 250 / 625 375 / 625 1500 / 1500 Other: Urine Color Light Avani Light Avani Straw Urine Appearance Clear Clear Clear Urine Odor None Comment Patient is going to have an endoscopy this afternoon, provider ordered this for comfort and conveinance. Patient agrees to have one instilled. Patient is cleaned up and positioned. This is done using sterile technique. Patient was able to tolerate well Voiding Methods Bedside Commode Data Completed and Pending Completed studies during hospitalization [Text1]: Exam(s) XR CHEST 2V PA ? LATERAL EXAM:? XR CHEST 2V PA ? LATERAL CLINICAL HISTORY:? Vomiting, R/O pneumonia TECHNIQUE:? 2D digital imaging was performed. COMPARISON:? CR,XR XR PORTABLE CHEST AP from 04/22/2021 FINDINGS: The heart is not enlarged. The lungs are clear and well expanded with perhaps mild scarring in the lung bases..? No pleural effusion seen. Mediastinal contours appear intact. IMPRESSION: No evidence of acute process. FINDINGS: CT examination of the abdomen and pelvis was performed with a bolus infusion of 100 cc of Omnipaque 350.? Images obtained through the lung bases are unremarkable. Note is made of marked low-attenuation wall thickening of the distal esophagus consistent with edema.? There is appearance suggestive of mucosal irregularity of the distal esophagus, the patient reportedly has history of Farrell esophagus on prior endoscopies, the possibility of esophageal carcinoma is not excluded on this examination.? No gross esophageal obstruction, there is is a large quantity of fluid in the stomach. The liver is unremarkable in appearance except for an incidental 12 millimeter Patak cyst of the right lobe of the liver centrally.. Gallbladder appears to contain small stones in, bile ducts are CT normal. Pancreas appears normal. Spleen is unremarkable in appearance. Adrenals appear normal.? The kidneys are unremarkable except for an apparent incidental small right renal cyst with no evidence of hydronephrosis, nephrolithiasis, or renal mass..? Urinary bladder unremarkable. Abdominal aorta is of normal diameter and no major vascular abnormality is seen. There is a right-sided ventral hernia in the lower abdomen which is fat containing, subcutaneous component measures up to about 6 x 4 cm in diameter, the neck of the hernia sac is about 11 millimeters in diameter period.? No abdominal or pelvic adenopathy. [employer] structures appear intact. Appendix is normal. No evidence of diverticulitis or bowel obstruction.? There is a question of wall thickening of under distended colon, please correlate clinically regarding the possibility of colitis.? No pericolonic fat edema or obstruction seen. IMPRESSION: Markedly abnormal appearance of esophagus,, marked wall thickening/edema and markedly abnormal mucosa.? The patient reportedly has history of Farrell's esophagus, the findings are more prominent on today's examination since prior examination of April 2021.? Possible acute esophagitis, esophageal carcinoma not excluded. Right lower quadrant ventral hernia as described above, fat containing. Question mild colonic wall thickening diffusely, please correlate clinically regarding possibility of colitis. Labs on day of discharge: Labs from last 24 hours 07/19/21 07/19/21 07:05 07:05 WBC 6.09 D RBC 4.20 Hgb 10.5 L Hct 34.0 L MCV 81.0 MCH 25.0 L MCHC 30.9 L RDW 17.5 H Plt Count 169 MPV 10.1 Immature Gran % 0.3 Neutrophils % 53.7 Lymphocytes % 34.8 Monocytes % 9.5 Eosinophils % 1.0 Basophils % 0.7 Nucleated RBC % 0 Absolute Neutrophils 3.27 Absolute Lymphocytes 2.12 Absolute Monocytes 0.58 Absolute Eosinophils 0.06 Absolute Basophils 0.04 Sodium 145 Potassium 3.5 Chloride 110 H Carbon Dioxide 29.5 Anion Gap 5.5 BUN 8 D Creatinine 0.6 Estimated GFR/1.73 m2 >= 60.00 Glucose 87 D Calcium 9.1 Magnesium 1.9 PFSH All Active Problems Discharge planning issues (Acute) Diabetes mellitus type 2 in obese (Acute) Tubular adenoma (Acute ~06/10/21) Hyperplastic colon polyp (Acute ~06/10/21) Farrell's 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 (Acute) Erosive esophagitis (Acute) Esophageal ulcer with bleeding (Acute) Chronic iron deficiency anemia (Acute) Chronic diarrhea (Acute) Nausea & vomiting (Acute) Black tarry stools (Acute) Leukocytosis (Acute) Pleural effusion (Acute) Ventral hernia (Acute) Depression (Chronic) Bipolar 1 disorder (Acute) Cholelithiasis (Chronic) Gastroparesis (Acute) Medical History Alcohol abuse Anxiety Farrell's esophagus Chronic pancreatitis due to acute alcohol intoxication Diabetes ETOH abuse History of pilonidal cyst Poorly controlled diabetes mellitus Surgical History History of section History of colonoscopy with polypectomy (~06/10/21) History of esophagogastroduodenoscopy (EGD) (~06/10/21) History of hysterectomy History of tonsillectomy Social History Smoking/Tobacco Use Status: Former Tobacco Use Quit Date: 02/07/21 Smoking risk assessment performed?: Yes Alcohol Intake: former Drug use: Never Substance use type: does not use Details: pt. denies history of ETOH abuse Do you feel safe at home: Yes Do you feel safe in your relationship?: Yes Additional Social history: Unable to asess as spouse Rogelio in the room.
[2021-07-19] MEDS: Insulin Aspart 300 UNITS/3 ML PEN SC (11:59)
--- NOTE | 2021-07-19 12:55 | PDOC.CMDIS ---
- If Service Date Differs Date of service: 07/19/21 Time of Service: 12:56 LACE Index Scoring Tool - Questions: Length of Stay (in days): 2 Acuity (Admit via E.D.?): Yes E.D. Visits: 5 - Answers: Total Score: 9 Risk of Readmission: Low Risk Care Management Discharge Reason for Hospitalization: Intractable vomiting Discharge Plan: Jennifer is discharged home with no services. She will follow up with her PCP, surgeon, and plan of care as prescribed. She is transported home by family via private vehicle. Patient/Family Education Needs: Review discharge instructions and discuss Ask Me Three and self management.
== END 2021-07-19 14:02 | disposition home or self-care (01) ==
LOC: ER 14:36 → MS 18:00
PROVIDERS: Emergency Medicine; Nurse Practitioner Acute Care; Nurse Practitioner Family; Surgery; Admitting Provider Internal Medicine; Emergency Provider Registered Nurse Emergency; PCP Nurse Practitioner Family; Visit Provider Internal Medicine
PROC: 0DJ68ZZ Inspection of Stomach, Via Natural or Artificial Opening Endoscopic (ICD-10-PCS; CPT 43235; principal; 2021-07-18 14:00)
DX: R11.2 Nausea with vomiting, unspecified (principal); K22.70 Barrett's esophagus without dysplasia; E11.43 Type 2 diabetes mellitus with diabetic autonomic (poly)neuropathy; K31.84 Gastroparesis; E66.9 Obesity, unspecified; E11.69 Type 2 diabetes mellitus with other specified complication; F31.9 Bipolar disorder, unspecified; F10.10 Alcohol abuse, uncomplicated; K86.0 Alcohol-induced chronic pancreatitis; D50.9 Iron deficiency anemia, unspecified; Z79.4 Long term (current) use of insulin; I48.92 Unspecified atrial flutter; Z86.010 Personal history of colon polyps; K25.9 Gastric ulcer, unspecified as acute or chronic, without hemorrhage or perforation; K29.70 Gastritis, unspecified, without bleeding; F17.210 Nicotine dependence, cigarettes, uncomplicated; K52.89 Other specified noninfective gastroenteritis and colitis
CPT/HCPCS: 43239; 36415; 36416; 80048; 80053; 82805; 82962; 83690; 87635; 88305; 96361; 96365; 96375; 99285; 71046; 74177; 80164; 81003; 81015; 83735; 85025; 99217; 99220; 99226; G0378; J1200; J1364; J2001; J2405; J2765; J3480; J3490

== ENCOUNTER 2021-11-06 18:36 | Outpatient (REF) | payer MEDICAID, SELFPAY ==
[2021-11-06 19:05] LABS: HCT 33.7 % (36.0-46.0); HGB 10.4 g/dL (11.2-15.7); MCH 24.6 pg (27.0-33.0); MCHC 30.9 % (32.0-36.0); MCV 80 fL (80-95); MPV 10.3 fL (8.0-11.0); Platelet Count 260 10^3/uL (130-400); RBC 4.22 10^6/uL (3.93-5.22); RDW 13.6 % (11.7-14.6); RDW-SD 39.1 fL; WBC 6.93 10^3/uL (4.4-10.8)
== END 2021-11-06 18:37 | disposition home or self-care (01) ==
LOC: NCHCN 18:36
PROVIDERS: PCP Nurse Practitioner Family; Visit Provider Nurse Practitioner Family
DX: K22.10 Ulcer of esophagus without bleeding (principal)
CPT/HCPCS: 85027

== ENCOUNTER → 2021-12-08 01:31 | Outpatient (CLI) | payer MEDICAID, SELFPAY ==
--- NOTE | 2021-12-08 | DI.MAMMO_ITS ---
Exam(s) MAMMO SCREENING EXAM: MAMMO SCREENING CLINICAL HISTORY: SCREENING, Z12.31 TECHNIQUE: Mammograms were interpreted according to the usual protocol including computer analysis w [facility] CAD system, tomosynthesis and C-view imaging. COMPARISON: FINDINGS: Breasts are heterogeneously dense. No dominant mass or clumped microcalcification is identified in e ither breast. The current examination is compared with previous examinations including July 2019 an d there has been no gross interval change in appearance in comparison with the prior studies. IMPRESSION: No specific evidence of malignancy at this time. Routine screening examinations are suggested at ye den intervals in this age group according to the ACS ACR guidelines. BI-RADS Category 1 - Negative Breast Density - Category C - Heterogeneously dense
== END ==
PROVIDERS: PCP Nurse Practitioner Family; Visit Provider Nurse Practitioner Family
DX: Z12.31 Encounter for screening mammogram for malignant neoplasm of breast (principal)
CPT/HCPCS: 77063; 77067

== ENCOUNTER → 2022-02-18 01:45 | Outpatient (CLI) | payer MEDICAID, SELFPAY ==
--- NOTE | 2022-02-18 13:00 | DI.CTLCSR_ITS ---
Exam(s) CT CHEST LUNG CANCER SCREEN EXAM: CT CHEST LUNG CANCER SCREEN CLINICAL HISTORY: TOBACCO USE, QUIT, Z87.891 TECHNIQUE: CT examination of the chest was performed utilizing low-dose lung cancer screening protoc ol. COMPARISON: CT CT ABDOMEN PELVIS W from 07/17/2021 FINDINGS: Images obtained through the upper abdomen show unremarkable appearance of visualized portions of the liver and spleen. Note is made of apparent wall thickening of distal 3rd of the esophagus and there is gas and debris i n the proximal esophagus raising the possibility of esophageal obstruction. The findings worrisome f or esophageal neoplasm, correlation with endoscopy recommended. Note is made of an aortopulmonary window node measuring up to about 17 millimeters in diameter. No o ther significant mediastinal adenopathy seen. Mediastinal vascular structures appear intact by noncontrast criteria. Tracheobronchial tree appears intact. No pleural effusion or pleural-based mass. The lungs are clear with no significant intrapulmonary nodule identified. IMPRESSION: Lung RADS Cat 1 - Negative: No nodules and definitely benign nodules Lung RADS Cat S - Other: Clinica lly Significant or Potentially Clinically Significant Findings (non lung cancer) There are findings suggestive of distal esophageal irregular wall thickening and/or mass with suggest ion of esophageal obstruction. Correlation with endoscopy is requested to evaluate the possibility o f esophageal neoplasm. Continue annual screening with LDCT in 12 months. Unexpected findings Lung-RADS 1.0 CATEGORIES: Category 0 - Prior chest CT exam(s) being located for comparison. Category 1 - Annual screening in 12 months. No nodules or definitely benign nodules. Category 2 - Annual screening in 12 months. Benign appearance. Nodules with low likelihood of becomin g active cancer. Category 3 - 6-month follow-up. Probably benign. Short-term follow-up suggested. Nodules with low lik elihood of becoming active cancer. Category 4A - 3-month follow-up and CT/PET if >8 mm in size. Suspicious finding. Findings which requi re additional testing. Category 4B - Findings which require additional testing and tissue sampling. Suspicious finding. Category 4X - Category 3 or 4 nodules with additional features or imaging findings that increases the suspicion of malignancy. Modifier S- Potentially clinically significant finding. (Non lung cancer) RADIATION DOSE DELIVERED: 72.35mGy.cmTotal DLP 1.84mGyCTDIvol 72.35mGy.cm Total DLP !Error CTDIvol DATA REPOSITORY: All CT scans at this facility are submitted to the National Radiology Data Registry (NRDR) Dose Index Registry (DIR) with the [employer] (ACR). RADIATION OPTIMIZATION: All CT scans at this facility use at least one of these dose optimization te chniques: automated exposure control; mA and/or kV adjustment per patient size (includes targeted exa ms where dose is matched to clinical indication); or iterative reconstruction.
== END ==
PROVIDERS: PCP Nurse Practitioner Family; Visit Provider Nurse Practitioner Family
DX: Z12.2 Encounter for screening for malignant neoplasm of respiratory organs (principal); Z87.891 Personal history of nicotine dependence; R91.8 Other nonspecific abnormal finding of lung field
CPT/HCPCS: 71271

== ENCOUNTER 2022-08-08 10:06 | Inpatient (IN) | payer MEDICAID, SELFPAY ==
[2022-08-08] VITALS (9 sets, daily range): BP systolic 138–177; BP diastolic 78–95; PULSE 97–118; RESP 16–22; TEMP 36.3–37.3; O2SAT 94–99; BMI 30.3
--- NOTE | 2022-08-08 10:15 | DI.RAD_ITS ---
Exam(s) XR FEMUR LT EXAM: XR FEMUR LT CLINICAL HISTORY: Fall, R/O Fracture. TECHNIQUE: 2D digital imaging was performed. COMPARISON: No exams were available for comparison FINDINGS: 3 views There is a subcapital fracture of the left femoral neck. No other femur fractures identified. No os seous lesions. IMPRESSION: There is a subcapital fracture of the left hip. DATA REPOSITORY: RADIATION DOSE DELIVERED:
--- NOTE | 2022-08-08 10:15 | DI.RAD_ITS ---
Exam(s) XR PELVIS AP EXAM: XR PELVIS AP CLINICAL HISTORY: Fall R/O Fracture. TECHNIQUE: 2D digital imaging was performed. COMPARISON: CR,XR XR FEMUR LT from 08/08/2022 FINDINGS: Single AP view. There appears to be a subcapital fracture of the left hip. Right hip appears unremarkable. No other pelvic fractures identified. IMPRESSION: There is a subcapital fracture of the left hip. DATA REPOSITORY: RADIATION DOSE DELIVERED:
--- NOTE | 2022-08-08 10:16 | W.ED.GENAD ---
Discharge Plan Disposition Patient Disposition: Admit to [facility] Discharge Details Clinical Impression: Closed fracture of neck of left femur, Hypokalemia Admit Date/Time: 08/08/22 12:02 Admit Provider: Erin Damon Attending Provider: Erin Damon Primary Care Provider: Ana Gillespie ED Provider: Kirti Hollis Medical Decision Making 62-year-old female presents via EMS after a mechanical trip and fall last evening. Patient reports her slipper got stuck in the back of a chair and she fell over the chair landing on vinyl floor in her kitchen. Her helped her up. Denies any neck or back pain did not hit her head. She is complaining of left thigh and left hip pain. Distal pulses intact. There is slight shortening no rotation noted. She reports that she is able to put some weight on the leg. Past medical history includes drug-induced parkinsonian, type 2 diabetes, alcohol abuse,esophagitis, chronic diarrhea bipolar 1, alcohol withdrawal, atrial flutter. Patient is having some vomiting which she reports is her baseline. Spoke with [facility] radiologist regarding x-ray results subcapital femoral neck fracture noted. 1115: Ortho paged. Discussed x-ray results with patient and family who verbalized understanding. Did not encourage her to be n.p.o. and I will let them know the plan of care after speaking with orthopedics. 1144: Spoke with Dr. Lynne who is on-call for orthopedic surgery regarding patient case and details he verbalized understanding. He will call me back with recommendations. 1155: Dr. Lynne recommends admit to medicine for medical clearance for hypokalemia and hypomagnesemia n.p.o. after midnight CT scan and either fix or replace tomorrow morning. 1158: Spoke with Dr. Damon regarding patient case in detail she agrees to accept patient for admission with orthopedic consult. This text was generated using [employer] system, please disregard any oddities of phrase or misspellings. Imaging Data Radiologic Study: Imaging: X-Ray Radiologist's impression: Imaging protocol: Radiologic exam of the left femur. Views: 2 views. COMPARISON: CR XR PELVIS AP 08/08/2022 10:36 AM FINDINGS: Bones/joints: Seen to better advantage on this examination is a subcapital left femoral neck fracture. Mild medial compartment left knee joint space narrowing. The femoral shaft is intact. Soft tissues: Unremarkable. IMPRESSION: Left hip subcapital fracture. Thank you for allowing us to participate in the care of your patient. Dictated and Authenticated by: Guzman Merrill MD Radiologic Study #2: Imaging: CT Scan Radiologist's impression: Clinical indication: Other: Left hip FX TECHNIQUE: Imaging protocol: CT of the left lower extremity without contrast was performed. Exam focused on the hip. COMPARISON: CT ABDOMEN PELVIS W 07/17/2021 9:34 AM FINDINGS: Bones/joints: Minimally displaced subcapital fracture of the left femoral neck. There are heterotopic bone formation adjacent to the greater trochanter. The acetabulum is intact. No fracture of the obturator ring or visualized iliac bone. Small joint effusion with increased density consistent with a hemarthrosis. (These findings were not present July 17, 2021.) Soft tissues: Normal. IMPRESSION: Acute nondisplaced left femoral basicervical fracture. Thank you for allowing us to participate in the care of your patient. Dictated and Authenticated by: Guzman Merrill MD Lab Data Lab results reviewed: Yes I reviewed the patient's lab results. Labs: Laboratory Tests Range/Units 08/08/22 08/08/22 08/08/22 11:00 11:00 11:00 WBC (4.4-10.8) 10^3/uL 14.09 H RBC (3.93-5.22) 10^6/uL 5.38 H Hgb (11.2-15.7) g/dL 9.1 L Hct (36.0-46.0) % 30.9 L MCV (80-95) fL 57 L MCH (27.0-33.0) pg 16.9 L MCHC (32.0-36.0) % 29.4 L RDW (11.7-14.6) % 21.5 H Plt Count (130-400) 10^3/uL 417 H MPV (8.0-11.0) fL Immature Gran % 0.7 Neutrophils % 86.4 Lymphocytes % 7.8 Monocytes % 4.7 Eosinophils % 0.1 Basophils % 0.3 Nucleated RBC % (0.0-0.3) % 0.0 Absolute Neutrophils (1.2-6.7) 10^3/uL 12.17 H Absolute Lymphocytes (1.2-3.4) 10^3/uL 1.10 L Absolute Monocytes (0.1-0.8) 10^3/uL 0.66 Absolute Eosinophils (0.0-0.7) 10^3/uL 0.01 Absolute Basophils (0.0-0.2) 10^3/uL 0.04 RBC Morphology See Below Hypochromasia 2+ Poikilocytosis 1+ Anisocytosis 3+ Microcytosis 2+ Sodium (136-145) mmol/L 131 L Potassium (3.5-5.1) mmol/L 2.8 L* Chloride (98-107) mmol/L 91 L Carbon Dioxide (21.0-32.0) mmol/L 32.5 H Anion Gap (3-11) mmol/L 7.5 BUN (7-18) mg/dL 14 Creatinine (0.55-1.02) mg/dL 1.2 H Est GFR (CKD-EPI 2020) (mL/min/1.73m2) 51.18 Glucose (74-106) mg/dL 305 H Calcium (8.5-10.1) mg/dL 10.6 H Magnesium (1.8-2.4) mg/dL 1.7 L Total Bilirubin (0.2-1.0) mg/dL 0.5 AST (15-37) U/L 12 L ALT (14-59) U/L 19 Alkaline Phosphatase (46-116) U/L 102 Total Protein (6.4-8.2) g/dL 7.7 Albumin (3.4-5.0) g/dL 3.1 L Ethyl Alcohol (<10) mg/dL < 3.0 HPI General Mode of arrival: EMS. Date/Time Provider Initiated Documentation: 08/08/22 10:10. Limitations to Documentation: no limitations. Information obtained by: patient, EMS, RN notes reviewed and old records reviewed. HPI Narrative: 62-year-old female presents via EMS after a mechanical trip and fall last evening. Patient reports her slipper got stuck in the back of a chair and she fell over the chair landing on vinyl floor in her kitchen. Her helped her up. Denies any neck or back pain did not hit her head. She is complaining of left thigh and left hip pain. Distal pulses intact. There is slight shortening no rotation noted. She reports that she is able to put some weight on the leg. Past medical history includes drug-induced parkinsonian, type 2 diabetes, alcohol abuse,esophagitis, chronic diarrhea bipolar 1, alcohol withdrawal, atrial flutter. Patient is having some vomiti mild Related Data Home Medications Medication Instructions Recorded Confirmed insulin NPH isoph U-100 human 100 40 unit subcut HS 03/04/21 08/08/22 unit/mL (3 mL) subcutaneous pen (Humulin N NPH U-100 Insulin KwikPen) quetiapine 100 mg tablet 300 mg PO HS 04/22/21 08/08/22 acetylcysteine 600 mg capsule 1,200 mg PO BID 05/16/21 08/08/22 divalproex 250 mg tablet,extended 250 mg PO DAILY 05/16/21 08/08/22 release 24 hr (Depakote ER) divalproex 500 mg tablet,extended 500 mg PO BID 06/10/21 08/08/22 release 24 hr (Depakote ER) olanzapine 10 mg tablet (Zyprexa) 10 mg PO HS 06/10/21 08/19/21 insulin aspart U-100 100 unit/mL 5 unit subcut TID 07/16/21 08/08/22 (3 mL) subcutaneous pen (Novolog FlexPen U-100 Insulin aspart) sucralfate 1 gram tablet (Carafate) 1 g PO QID 07/16/21 08/08/22 pantoprazole 40 mg tablet,delayed 40 mg PO BID #60 tabs 07/19/21 08/08/22 release (Protonix) carbidopa 25 mg-levodopa 100 mg 1 tab PO BID #60 tabs 08/19/21 08/19/21 tablet (Sinemet) Previous Rx's Medication Instructions Recorded pantoprazole 40 mg tablet,delayed 40 mg PO BID #60 tabs 07/19/21 release (Protonix) carbidopa 25 mg-levodopa 100 mg 1 tab PO BID #60 tabs 08/19/21 tablet (Sinemet) Allergies Allergy/AdvReac Type Severity Reaction Status Date / Time metformin Allergy Unknown Unverified 08/08/22 10:11 meperidine AdvReac gi upset Unverified 08/08/22 10:11 General Stated Complaint: Fall/Non TraumaCriteria ASHANTI: 4 Review of Systems All systems reviewed & are unremarkable except as noted in HPI and below Gastrointestinal Gastrointestinal: Reports nausea and Reports vomiting Musculoskeletal Musculoskeletal: Reports as per HPI and Reports arthralgias [facility] All Active Problems (Updated 08/08/22 @ 11:59 by Kirti Hollis NP) Closed fracture of neck of left femur (Acute) Hypokalemia (Acute) Constipation (Acute) Drug-induced parkinsonism (Acute) Neuroleptic induced parkinsonism (Acute) Tubular adenoma (Acute ~06/10/21) Hyperplastic colon polyp (Acute ~06/10/21) Farrell's 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 (Acute) Erosive esophagitis (Acute) Esophageal ulcer with bleeding (Acute) Chronic diarrhea (Acute) Black tarry stools (Acute) Leukocytosis (Acute) Pleural effusion (Acute) Ventral hernia (Acute) Depression (Chronic) Bipolar 1 disorder (Acute) Cholelithiasis (Chronic) Medical History Alcohol abuse Anxiety Farrell's esophagus Chronic iron deficiency anemia Chronic pancreatitis due to acute alcohol intoxication Diabetes Diabetes mellitus type 2 in obese ETOH abuse History of pilonidal cyst Poorly controlled diabetes mellitus Surgical History History of section History of colonoscopy with polypectomy (~06/10/21) History of esophagogastroduodenoscopy (EGD) (~06/10/21) History of hysterectomy History of tonsillectomy S/P laparoscopic procedure cyst removed from stomach per patient S/P surgical removal of pilonidal cyst Family History Father Hypertension Diabetes Heart disease Social History Smoking/Tobacco Use Status: Former Tobacco Use Quit Date: 02/07/21 Smoking risk assessment performed?: Yes Alcohol Intake: former Drug use: Never Substance use type: does not use Details: pt. 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 Course Vital Signs Vital signs: Vital Signs Temperature 36.7 C 08/08/22 10:04 Pulse 109 H 08/08/22 10:04 Respiratory Rate 18 08/08/22 10:04 Blood Pressure 138/78 08/08/22 10:04 Pulse Oximetry 94 08/08/22 10:04 Temperature 36.7 C 08/08/22 10:04 Temperature Source Oral 08/08/22 10:04 Pulse 109 H 08/08/22 10:04 Respiratory Rate 18 08/08/22 10:04 Respiratory Effort Normal 08/08/22 10:10 Blood Pressure 138/78 08/08/22 10:04 Blood Pressure Position Sitting 08/08/22 10:04 Pulse Oximetry 94 08/08/22 10:04 Oxygen Delivery Method Room Air 08/08/22 10:04 Oxygen Flow Rate 0 08/08/22 10:04 Pain Level 10 08/08/22 10:04
[2022-08-08] MEDS: Ondansetron O.D.T. 4 MG TABEF PO (10:21)
--- NOTE | 2022-08-08 11:06 | DI.VRAD_ITS ---
PROCEDURE INFORMATION: Exam: XR Pelvis Exam date and time: 08/08/2022 10:36 AM Age: 62 years old Clinical indication: Hip pain; Left hip; Patient HX: Fall, R. O FX TECHNIQUE: Imaging protocol: Radiologic exam of the pelvis. Views: 1 or 2 view. COMPARISON: CT ABDOMEN PELVIS W 07/17/2021 9:34 AM FINDINGS: Bones/joints: Unremarkable. No acute fracture. Soft tissues: Unremarkable. IMPRESSION: No acute findings. Dictated and Authenticated by: Guzman Merrill MD. Ordering:VONDA Cotto MD
--- NOTE | 2022-08-08 11:09 | DI.VRAD_ITS ---
Addendum created by Guzman Merrill MD on 08/08/2022 11:11:47 AM EDT: THIS REPORT CONTAINS FINDINGS THAT MAY BE CRITICAL TO PATIENT CARE. The findings were verbally communicated via telephone conference at 11:11 AM EST on 08/08/2022 with ELSY REESE. The findings were acknowledged and understood. Initial report created on 08/08/2022 11:08:19 AM EDT: PROCEDURE INFORMATION: Exam: XR Left Femur Exam date and time: 08/08/2022 10:42 AM Age: 62 years old Clinical indication: Pain; Hip; Left; Patient HX: Fall, RO FX TECHNIQUE: Imaging protocol: Radiologic exam of the left femur. Views: 2 views. COMPARISON: CR XR PELVIS AP 08/08/2022 10:36 AM FINDINGS: Bones/joints: Seen to better advantage on this examination is a subcapital left femoral neck fracture. Mild medial compartment left knee joint space narrowing. The femoral shaft is intact. Soft tissues: Unremarkable. IMPRESSION: Left hip subcapital fracture. Dictated and Authenticated by: Guzman Merrill MD. Ordering:VONDA Cotto MD
[2022-08-08 11:11] LABS: Absolute Basophil Count 0.04 10^3/uL (0.0-0.2); Absolute Eosinophil Count 0.01 10^3/uL (0.0-0.7); Absolute Monocyte Count 0.66 10^3/uL (0.1-0.8); Basophils % 0.3; Eosinophils % 0.1; HCT 30.9 % (36.0-46.0); HGB 9.1 g/dL (11.2-15.7); Immature Grans % 0.7; Lymphocytes % 7.8; MCH 16.9 pg (27.0-33.0); MCHC 29.4 % (32.0-36.0); MCV 57 fL (80-95); Monocytes % 4.7; Neutrophils % 86.4; Platelet Count 417 10^3/uL (130-400); RBC 5.38 10^6/uL (3.93-5.22); RDW 21.5 % (11.7-14.6); RDW-SD 40.7 fL; WBC 14.09 10^3/uL (4.4-10.8)
[2022-08-08] MEDS: diphenhydrAMINE 50 MG/ML VIAL 12.5 MG IVP (11:11)
[2022-08-08 11:12] LABS: Absolute Neutrophil Count 12.17 10^3/uL (1.2-6.7)
[2022-08-08] MEDS: Normal Saline Flush 10 ML SYR IVP (11:12)
[2022-08-08] MEDS: Prochlorperazine 10 MG/2 ML VIAL 5 MG IVP ×2 (11:14→19:53)
[2022-08-08] MEDS: Normal Saline 100 ML BAG IJ (11:17)
[2022-08-08 11:24] LABS: ALT 19 U/L (14-59); AST 12 U/L (15-37); Albumin 3.1 g/dL (3.4-5.0); Alkaline Phosphatase 102 U/L (46-116); Anion Gap 7.5 mmol/L (3-11); BUN 14 mg/dL (7-18); Bilirubin, Total 0.5 mg/dL (0.2-1.0); CO2 32.5 mmol/L (21.0-32.0); CREATININE 1.2 mg/dL (0.55-1.02); Calcium 10.6 mg/dL (8.5-10.1); Chloride 91 mmol/L (98-107); Estimated GFR 51.18 (mL/min/1.73m2); Glucose 305 mg/dL (74-106); Sodium 131 mmol/L (136-145); Total Protein 7.7 g/dL (6.4-8.2)
[2022-08-08 11:26] LABS: ETHANOL BLOOD < 3.0 mg/dL (<10); Potassium 2.8 mmol/L (3.5-5.1)
--- NOTE | 2022-08-08 11:30 | RT.EKG_ITS ---
APPROVED REPORT Exam: Resting ECG Reason for Exam: Fall Patient Location: E HR:111 bpm ECG Measurements Heart Rate 111 AXIS GA 176 P 73 QRSd 84 QRS 85 QT 346 T -64 QTc 471 Conclusion Sinus tachycardia...rate> 99
[2022-08-08 11:36] LABS: Anisocytosis 3+; Diff Comment RBC Morph Reviewed; Hypochromasia 2+; Microcytosis 2+; Poikilocytes 1+
--- NOTE | 2022-08-08 11:42 | DI.RAD_ITS ---
Exam(s) XR CHEST 1V IN DI DEPT EXAM: XR CHEST 1V IN DI DEPT CLINICAL HISTORY: Fall. TECHNIQUE: 2D digital imaging was performed. COMPARISON: CR XR CHEST 2V PA LATERAL from 07/17/2021 FINDINGS: Single AP portable view. Heart size is upper normal. The mediastinum is not widened. Lungs are clear. No infiltrates nor obvious pleural effusions. IMPRESSION: No acute pulmonary findings on this single AP portable view of the chest. DATA REPOSITORY: RADIATION DOSE DELIVERED:
--- NOTE | 2022-08-08 11:45 | DI.CT_ITS ---
Exam(s) CT LOWER EXTREMITY LT WO EXAM: CT LOWER EXTREMITY LT WO CLINICAL HISTORY: Left hip Fracture. TECHNIQUE: Imaging Protocol: Axial computed tomography images with coronal and sagittal reformatted images were created and reviewed. CONTRAST MATERIAL: Intravenous: Omnipaque 350 Contrast volume:structured data in ml Contrast route:I V - Oral: yes / no COMPARISON: CR,XR XR PELVIS AP from 08/08/2022 FINDINGS: There is a minimally impacted subcapital fracture of the left femoral neck. No other fractures ident ified. Acetabulum is intact. Inter and subtrochanteric regions of the left hip are intact. Lesser trochanter intact. Pubic rami intact. There is no evidence of significant intrapelvic hematoma. No free fluid. IMPRESSION: Mildly impacted subcapital fracture of the left femoral neck. No other fractures identified. RADIATION DOSE DELIVERED: 167.66mGy.cm Total DLP DATA REPOSITORY: All CT scans at this facility are submitted to the National Radiology Data Registry (NRDR) Dose Index Registry (DIR) with the [employer] (ACR). RADIATION OPTIMIZATION: All CT scans at this facility use at least one of these dose optimization te chniques: automated exposure control; mA and/or kV adjustment per patient size (includes targeted exa ms where dose is matched to clinical indication); or iterative reconstruction.
[2022-08-08 11:46] LABS: Magnesium 1.7 mg/dL (1.8-2.4)
--- NOTE | 2022-08-08 12:32 | DI.VRAD_ITS ---
PROCEDURE INFORMATION: Exam: CT Left Lower Extremity Without Contrast, Hip Exam date and time: 08/08/2022 12:15 PM Age: 62 years old Clinical indication: Other: Left hip FX TECHNIQUE: Imaging protocol: CT of the left lower extremity without contrast was performed. Exam focused on the hip. COMPARISON: CT ABDOMEN PELVIS W 07/17/2021 9:34 AM FINDINGS: Bones/joints: Minimally displaced subcapital fracture of the left femoral neck. There are heterotopic bone formation adjacent to the greater trochanter. The acetabulum is intact. No fracture of the obturator ring or visualized iliac bone. Small joint effusion with increased density consistent with a hemarthrosis. (These findings were not present July 17, 2021.) Soft tissues: Normal. IMPRESSION: Acute nondisplaced left femoral basicervical fracture. Dictated and Authenticated by: Guzman Merrill MD. Ordering:VONDA Cotto MD
--- NOTE | 2022-08-08 12:33 | DI.VRAD_ITS ---
PROCEDURE INFORMATION: Exam: XR Chest Exam date and time: 08/08/2022 12:21 PM Age: 62 years old Clinical indication: Screening exam; Pre-operative exam; Other: Left hip fracture TECHNIQUE: Imaging protocol: Radiologic exam of the chest. Views: 1 view. COMPARISON: CT CHEST LUNG CANCER SCREEN 02/18/2022 12:50 PM FINDINGS: Lungs: Unremarkable. No consolidation. Pleural spaces: Unremarkable. No pleural effusion. No pneumothorax. Heart/Mediastinum: Unremarkable. No cardiomegaly. Bones/joints: Unremarkable. IMPRESSION: No acute findings. Dictated and Authenticated by: Guzman Merrill MD. Ordering:VONDA Cotto MD
[2022-08-08] MEDS: MAGNESIUM SULFATE 1 GM/100 ML BAG IVPB (12:35)
[2022-08-08 12:38] LABS: COVID-19 PCR Negative (Negative); Source Nasal/Nares
[2022-08-08] MEDS: Lactated Ringers 1,000 ML 75 ML IV (13:48)
[2022-08-08] MEDS: Heparin 5,000 UNITS/ML VIAL 5000 UNITS SC (13:59)
[2022-08-08] MEDS: HYDROmorphone 2 MG/ML VIAL 1 MG IVP (14:21)
[2022-08-08] MEDS: POTASSIUM CHLORIDE 20 MEQ/100 ML BAG 50 MEQ IVPB ×2 (14:31→17:00)
--- NOTE | 2022-08-08 14:52 | W.PM.HP.N ---
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 discussed with DR Damon History of Present Illness History of Present Illness Chief Complaint: Right hip pain Narrative: 62-year-old female with past medical history of drug-induced parkinsonian, type 2 diabetes, alcohol abuse, esophagitis, chronic diarrhea, bipolar 1, alcohol withdrawal, and atrial flutter presented via EMS to the [facility] ED after a mechanical trip on 08/07/2022.? Patient reported her slipper got stuck in the back of a chair and she fell over the chair landing on vinyl floor in her kitchen.? Her helped her up. Denied any neck or back pain did not hit her head, no loss of consciousness. She complained only of left thigh and left hip pain.? Distal pulses were intact.? There is slight shortening no rotation noted.? She reports that she is able to put some weight on the leg.?Xray revealed acute nondisplaced left femoral fracture. She is admitted to the hospitalist service with orthopedic consult with plan for repair 08/09/2022. Review of Systems All systems reviewed & are unremarkable except as noted in HPI and below PFSH All Active Problems (Updated 08/08/22 @ 15:54 by Onelia Hidalgo NP) Discharge planning issues (Acute) DVT prophylaxis (Acute) Closed fracture of neck of left femur (Acute) Hypokalemia (Acute) Constipation (Acute) Drug-induced parkinsonism (Acute) Neuroleptic induced parkinsonism (Acute) Tubular adenoma (Acute ~06/10/21) Hyperplastic colon polyp (Acute ~06/10/21) Farrell's 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 (Acute) Erosive esophagitis (Acute) Esophageal ulcer with bleeding (Acute) Chronic diarrhea (Acute) Black tarry stools (Acute) Leukocytosis (Acute) Pleural effusion (Acute) Ventral hernia (Acute) Depression (Chronic) Bipolar 1 disorder (Acute) Cholelithiasis (Chronic) Medical History Alcohol abuse Anxiety Farrell's esophagus Chronic iron deficiency anemia Chronic pancreatitis due to acute alcohol intoxication Diabetes Diabetes mellitus type 2 in obese ETOH abuse History of pilonidal cyst Poorly controlled diabetes mellitus Surgical History History of section History of colonoscopy with polypectomy (~06/10/21) History of esophagogastroduodenoscopy (EGD) (~06/10/21) History of hysterectomy History of tonsillectomy S/P laparoscopic procedure cyst removed from stomach per patient S/P surgical removal of pilonidal cyst Family History Father Hypertension Diabetes Heart disease Social History Smoking/Tobacco Use Status: Former Tobacco Use Quit Date: 02/07/21 Smoking risk assessment performed?: Yes Alcohol Intake: former Drug use: Never Substance use type: does not use Details: pt. 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 Meds Allergies and Home Medications Allergies Allergy/AdvReac Type Severity Reaction Status Date / Time metformin Allergy Unknown Unverified 08/08/22 10:11 meperidine AdvReac gi upset Unverified 08/08/22 10:11 Home Medications Medication Instructions Recorded Confirmed Type insulin NPH isoph U-100 human 100 40 unit subcut DAILY 03/04/21 08/08/22 History unit/mL (3 mL) subcutaneous pen (Humulin N NPH U-100 Insulin KwikPen) quetiapine 100 mg tablet 300 mg PO HS 04/22/21 08/08/22 History divalproex 250 mg tablet,extended 500 mg PO DAILY 05/16/21 08/08/22 History release 24 hr (Depakote ER) divalproex 500 mg tablet,extended 1,000 mg PO DAILY 06/10/21 08/08/22 History release 24 hr (Depakote ER) insulin aspart U-100 100 unit/mL 5 unit subcut TID 07/16/21 08/08/22 History (3 mL) subcutaneous pen (Novolog FlexPen U-100 Insulin aspart) pantoprazole 40 mg tablet,delayed 40 mg PO BID #60 tabs 07/19/21 08/08/22 Rx release (Protonix) melatonin 10 mg tablet 10 mg PO QHS 08/08/22 08/08/22 History sucralfate 1 gram tablet 1 g PO QID 08/08/22 08/08/22 History Exam Const General: cooperative, comfortable and no acute distress Nutritional Appearance: average body habitus HENPR Head: normal to inspection Eyes General: appearance normal, both eyes and all related structures Eyelids: eyelids normal Conjunctivae: conjunctivae normal Sclera: sclerae normal Neck Neck: full ROM Resp Effort & Inspection: normal respiratory effort, able to speak in complete sentences, no audible wheezes and cough Cardio Rate: regular rate Rhythm: regular rhythm GI Inspection: normal to inspection Auscultation: normal bowel sounds Neuro General: patient alert, patient awake and patient oriented x3 Cognition: normal cognition Speech: speech normal Extrem General: normal to inspection (Left distal pulses intact. There is slight shortening no rotation noted.) Results Labs 08/08/22 11:00 08/08/22 11:00 Labs: Laboratory Results - last 24 hr 08/08/22 08/08/22 08/08/22 11:00 11:00 11:00 WBC 14.09 H RBC 5.38 H Hgb 9.1 L Hct 30.9 L MCV 57 L MCH 16.9 L MCHC 29.4 L RDW 21.5 H Plt Count 417 H MPV Immature Gran % 0.7 Neutrophils % 86.4 Lymphocytes % 7.8 Monocytes % 4.7 Eosinophils % 0.1 Basophils % 0.3 Nucleated RBC % 0.0 Absolute Neutrophils 12.17 H Absolute Lymphocytes 1.10 L Absolute Monocytes 0.66 Absolute Eosinophils 0.01 Absolute Basophils 0.04 RBC Morphology See Below Hypochromasia 2+ Poikilocytosis 1+ Anisocytosis 3+ Microcytosis 2+ Sodium 131 L Potassium 2.8 L* Chloride 91 L Carbon Dioxide 32.5 H Anion Gap 7.5 BUN 14 Creatinine 1.2 H Est GFR (CKD-EPI 2020) 51.18 Glucose 305 H Calcium 10.6 H Magnesium 1.7 L Total Bilirubin 0.5 AST 12 L ALT 19 Alkaline Phosphatase 102 Total Protein 7.7 Albumin 3.1 L Ethyl Alcohol < 3.0 COVID-19 Source SARS-CoV-2 (PCR) 08/08/22 12:02 WBC RBC Hgb Hct MCV MCH MCHC RDW Plt Count MPV Immature Gran % Neutrophils % Lymphocytes % Monocytes % Eosinophils % Basophils % Nucleated RBC % Absolute Neutrophils Absolute Lymphocytes Absolute Monocytes Absolute Eosinophils Absolute Basophils RBC Morphology Hypochromasia Poikilocytosis Anisocytosis Microcytosis Sodium Potassium Chloride Carbon Dioxide Anion Gap BUN Creatinine Est GFR (CKD-EPI 2020) Glucose Calcium Magnesium Total Bilirubin AST ALT Alkaline Phosphatase Total Protein Albumin Ethyl Alcohol COVID-19 Source Nasal/Nares SARS-CoV-2 (PCR) Negative Last Vital Signs Temp 37.1 C 08/08/22 13:21 Pulse 111 H 08/08/22 13:35 Resp 17 08/08/22 13:21 BP 169/94 H 08/08/22 13:35 Pulse Ox 95 08/08/22 13:21 Time Spent Time spent with Patient: 40-54 minutes Time was spent: preparing to see the patient(eg.review tests), obtaining and/or reviewing separately otained hiistory, ordering medications,tests, procedures, referring, communicating with other health daycare provider, indepentently interpreting results, counseling the patient and care coordination
[2022-08-08] MEDS: Ketorolac 15 MG/ML VIAL IVP (15:19)
--- NOTE | 2022-08-08 15:51 | TELEP.MEDR_ITS ---
Date of service: 08/08/22 Time of Service: 13:30 Telepharmacy Home Med Rec Allergies Allergies: metformin Allergy (Unknown, Unverified 08/08/22 10:11) meperidine Adverse Reaction (Unverified 08/08/22 10:11) gi upset Interview Person Interviewed: * Maotent and Quality Quality of Interview/Accuracy of Medication List: Good Sources Sources used to compile medication list: [facility] Medication List and [employer] Changes made to Home Medication List: ADDITIONS: * Sucralfate 1 g PO QID * Melatonin 10 mg PO QHS DELETIONS: * NAC 1200 mg BID CHANGES: * Divalproex 1000 mg daily at 1500 * Divalproex 500 mg daily at 1900 Additional Notes Additional Notes: * Patient is prescribed Divalproex ER 500 mg PO BID and 250 mg Daily as directed however patient takes differently. Patient takes Divalproex ER 1000 mg daily (at 1500) and 500 mg daily (at 1900) * Patient uses insulin novolog 4-5x/week for BG correction Recommended Changes Recommended Changes(reason for recommendation): * none Attestation: The home medication list is now updated to the best of my knowledge and is ready to be reconciled by the provider. Please contact the TelePharmacy Medication Reconciliation Pharmacist at for any questions.
--- NOTE | 2022-08-08 15:51 | TELEP.MEDREC ---
Date of service: 08/08/22 Time of Service: 13:30 Telepharmacy Home Med Rec Allergies Allergies: metformin Allergy (Unknown, Unverified 08/08/22 10:11) meperidine Adverse Reaction (Unverified 08/08/22 10:11) gi upset Interview Person Interviewed: Wai and Quality Quality of Interview/Accuracy of Medication List: Good Sources Sources used to compile medication list: [facility] Medication List and [employer] Changes made to Home Medication List: ADDITIONS: Sucralfate 1 g PO QID Melatonin 10 mg PO QHS DELETIONS: NAC 1200 mg BID CHANGES: Divalproex 1000 mg daily at 1500 Divalproex 500 mg daily at 1900 Additional Notes Additional Notes: Patient is prescribed Divalproex ER 500 mg PO BID and 250 mg Daily as directed however patient takes differently. Patient takes Divalproex ER 1000 mg daily (at 1500) and 500 mg daily (at 1900) Patient uses insulin novolog 4-5x/week for BG correction Recommended Changes Recommended Changes(reason for recommendation): none Attestation: The home medication list is now updated to the best of my knowledge and is ready to be reconciled by the provider. Please contact the TelePharmacy Medication Reconciliation Pharmacist at for any questions.
[2022-08-08 16:28] LABS: Hemoglobin A1C 7.2 % (<5.7)
[2022-08-08] MEDS: Insulin Aspart 300 UNITS/3 ML PEN SC ×2 (17:17→22:16)
[2022-08-08] MEDS: HYDROmorphone 2 MG/ML VIAL IVP (18:10)
[2022-08-08] MEDS: Ondansetron 4 MG/2 ML VIAL IVP (18:11)
[2022-08-08] MEDS: Docusate Sodium 100 MG CAP PO (20:43)
[2022-08-08] MEDS: Pantoprazole 40 MG TABCR PO (20:43)
[2022-08-08] MEDS: Divalproex Sodium 500 MG TAB.ER.24H PO (20:43)
[2022-08-08] MEDS: Polyethylene Glycol 3350 17 GM PACKET PO (20:44)
--- NOTE | 2022-08-08 21:43 | ANES.PREOP_ITS ---
General Info Date of Service Date Performed: 08/08/22 Height: 5 ft Weight: 70.5 kg Body Mass Index (BMI): 30.3 Meds Allergies and Home Medications Allergies Allergy/AdvReac Type Severity Reaction Status Date / Time metformin Allergy Unknown Unverified 08/08/22 10:11 meperidine AdvReac gi upset Unverified 08/08/22 10:11 Home Medication Medication Instructions Recorded insulin NPH isoph U-100 human 100 40 unit subcut DAILY 03/04/21 unit/mL (3 mL) subcutaneous pen (Humulin N NPH U-100 Insulin KwikPen) quetiapine 100 mg tablet 300 mg PO HS 04/22/21 divalproex 250 mg tablet,extended 500 mg PO DAILY 05/16/21 release 24 hr (Depakote ER) divalproex 500 mg tablet,extended 1,000 mg PO DAILY 06/10/21 release 24 hr (Depakote ER) insulin aspart U-100 100 unit/mL 5 unit subcut TID 07/16/21 (3 mL) subcutaneous pen (Novolog FlexPen U-100 Insulin aspart) pantoprazole 40 mg tablet,delayed 40 mg PO BID #60 tabs 07/19/21 release (Protonix) melatonin 10 mg tablet 10 mg PO QHS 08/08/22 sucralfate 1 gram tablet 1 g PO QID 08/08/22 Current Visit Medications: Current Medications Generic Name Dose Route Start Last Admin Trade Name Freq PRN Reason Stop Dose Admin Acetaminophen 650 mg 08/08/22 18:50 Acetaminophen 325 Mg Tab PO Q6H PRN PRN Dextrose 0 gm 08/08/22 12:13 Glucose Oral Gel 15 Gm/37.5 Gm Tube PO DIRECTED PRN Dextrose/Water 0 gm 08/08/22 12:13 Dextrose 50%-Water 25 Gm/50 Ml Syr IVP DIRECTED PRN Dimethicone/Zinc Oxide 0 gm 08/08/22 12:02 Clara Protect Cream 142 Gm Tube TP PRN PRN Divalproex Sodium 250 mg 08/09/22 08:30 Divalproex Sodium 250 Mg Tab.Er.24h PO DAILY LAZARUS Divalproex Sodium 500 mg 08/08/22 20:00 08/08/22 20:43 Divalproex Sodium 500 Mg Tab.Er.24h PO 500 mg BID LAZARUS Administration Docusate Sodium 100 mg 08/08/22 20:00 08/08/22 20:43 Docusate Sodium 100 Mg Cap PO 100 mg TID LAZARUS Administration Heparin Sodium (Porcine) 5,000 units 08/08/22 14:00 08/08/22 13:59 Heparin 5,000 Units/Ml Vial SC 08/09/22 02:01 5,000 units Q12H LAZARUS Administration Hydromorphone HCl 0.5 - 2 mg 08/08/22 17:54 08/08/22 18:10 Hydromorphone 2 Mg/Ml Vial IVP 1 mg Q3H PRN PRN Administration Sodium Chloride 500 mls @ 0 mls/hr 08/08/22 10:20 Saline 500ml Bag IV PRN PRN As Directed Ringer's Solution 1,000 mls @ 75 mls/hr 08/08/22 12:15 08/08/22 13:48 IV 75 mls/hr INFUSION LAZARUS Administration IV Miscellaneous Supplies 1 each 08/08/22 10:30 Iv Access IV DIRECTED [facility] Insulin Aspart 0 units 08/08/22 17:00 08/08/22 17:17 Insulin Aspart 300 Units/3 Ml Pen SC 8 unit 0800,1200,1700,2200 [facility] Administration Protocol Insulin Human NPH 20 unit 08/08/22 22:00 Insulin Nph-Human 300 Units/3 Ml Pen SC HS [facility] Ketorolac Tromethamine 15 mg 08/08/22 14:30 Ketorolac 15 Mg/Ml Vial IVP 08/13/22 14:29 Q6H PRN PRN Magnesium Hydroxide 30 ml 08/08/22 12:02 Milk Of Magnesia 30 Ml Cup PO DAILY PRN PRN Melatonin 9 mg 08/08/22 22:00 Melatonin 3 Mg Tab PO HS [facility] Ondansetron HCl 4 mg 08/08/22 14:04 08/08/22 18:11 Ondansetron 4 Mg/2 Ml Vial IVP 4 mg Q4H PRN PRN Administration Pantoprazole Sodium 40 mg 08/08/22 20:00 08/08/22 20:43 Pantoprazole 40 Mg Tabcr PO 40 mg BID LAZARUS Administration Polyethylene Glycol 17 gm 08/08/22 20:00 08/08/22 20:44 Polyethylene Glycol 3350 17 Gm Packet PO 17 gm BID LAZARUS Administration Potassium Chloride 40 meq 08/08/22 20:00 08/08/22 20:43 Potassium Chloride 20 Meq Tabcr PO 08/09/22 20:01 Not Given BID LAZARUS Prochlorperazine Edisylate 5 mg 08/08/22 19:30 08/08/22 19:53 Prochlorperazine 10 Mg/2 Ml Vial IVP 5 mg Q6H PRN Administration Nausea / Vomiting Quetiapine Fumarate 300 mg 08/08/22 22:00 Quetiapine 100 Mg Tab PO HS LAZARUS Sodium Chloride 0 ml 08/08/22 10:20 08/08/22 11:12 Normal Saline Flush 10 Ml Syr IVP 20 ml PRN PRN Administration Sodium Chloride 100 ml 08/08/22 11:30 08/08/22 11:17 Normal Saline 100 Ml Bag IJ 100 ml DIRECTED LAZARUS Administration PFSH Active Problems Active Problems: Problem Status Onset Code Discharge planning issues Z02.9 DVT prophylaxis Z29.9 Closed fracture of neck of left femur S72.002A Hypokalemia E87.6 Constipation K59.00 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 Tubular adenoma ~06/10/21 D36.9 Hyperplastic colon polyp ~06/10/21 K63.5 Farrell's 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 K22.70 Erosive esophagitis K22.10 Esophageal ulcer with bleeding K22.11 Chronic diarrhea K52.9 Black tarry stools K92.1 Leukocytosis D72.829 Pleural effusion J90 Ventral hernia K43.9 Depression F32.9 Bipolar 1 disorder F31.9 Cholelithiasis K80.20 Atrial flutter I48.92 Medical History Medical History Alcohol abuse Anxiety Farrell's esophagus Chronic iron deficiency anemia Chronic pancreatitis due to acute alcohol intoxication Diabetes Diabetes mellitus type 2 in obese ETOH abuse History of pilonidal cyst Poorly controlled diabetes mellitus Medical History Comments:: LH tremor. 08:[address] Purcell order Surgical History Surgical History History of section History of colonoscopy with polypectomy (~06/10/21) History of esophagogastroduodenoscopy (EGD) (~06/10/21) History of hysterectomy History of tonsillectomy S/P laparoscopic procedure cyst removed from stomach per patient S/P surgical removal of pilonidal cyst Tobacco Smoking/Tobacco Use Status: Former Tobacco Use Alcohol Alcohol Intake: former Substance Use Substance use: Never Substance use type: does not use Details: pt. denies history of ETOH abuse Vital Signs and Lab Results Vital Signs Most Recent Vital Signs in EMR: Most Recent Vital Signs Temp Pulse Resp BP Pulse Ox 36.3 C L 118 H 16 177/95 H 94 08/08/22 19:36 08/08/22 19:36 08/08/22 19:36 08/08/22 19:36 08/08/22 19:36 Point of Care Results Point of Care Results: Finger Stick Blood Glucose 256 08/08/22 20:22 Lab Results 08/08/22 11:00 08/08/22 11:00 Blood Type / Crossmatch: Patient ABO/Rh O Positive 08/08/22 Antibody Screen NEGATIVE 08/08/22 Complete Blood Count: White Blood Count 14.09 10^3/uL (4.4-10.8) H 08/08/22 11:00 Red Blood Count 5.38 10^6/uL (3.93-5.22) H 08/08/22 11:00 Hemoglobin 9.1 g/dL (11.2-15.7) L 08/08/22 11:00 Hematocrit 30.9 % (36.0-46.0) L 08/08/22 11:00 Platelet Count 417 10^3/uL (130-400) H 08/08/22 11:00 Complete Metabolic Panel: Sodium 131 mmol/L (136-145) L 08/08/22 11:00 Potassium 2.8 mmol/L (3.5-5.1) L* 08/08/22 11:00 Chloride 91 mmol/L (98-107) L 08/08/22 11:00 Carbon Dioxide 32.5 mmol/L (21.0-32.0) H 08/08/22 11:00 BUN 14 mg/dL (7-18) 08/08/22 11:00 Creatinine 1.2 mg/dL (0.55-1.02) H 08/08/22 11:00 Est GFR (CKD-EPI 2020) 51.18 (mL/min/1.73m2) 08/08/22 11:00 Magnesium 1.7 mg/dL (1.8-2.4) L 08/08/22 11:00 Calcium 10.6 mg/dL (8.5-10.1) H 08/08/22 11:00 Albumin 3.1 g/dL (3.4-5.0) L 08/08/22 11:00 Glucose 305 mg/dL (74-106) H 08/08/22 11:00 Hemoglobin A1c 7.2 % (<5.7) H 08/08/22 11:00 Liver Function Panel: Alanine Aminotransferase (ALT/SGPT) 19 U/L (14-59) 08/08/22 11: 00 Aspartate Amino Transf (AST/SGOT) 12 U/L (15-37) L 08/08/22 11: 00 Coagulation Panel: No Data to Display Cardiac Panel: No Data to Display Arterial Blood Gas: No Data to Display Venous Blood Gas: No Data to Display Pancreas Panel: No Data to Display Thyroid Panel: No Data to Display Infectious Disease: Coronavirus (COVID-19)(PCR) Negative (Negative) 08/08/22 12:02 Coronavirus 2019 Source Nasal/Nares 08/08/22 12:02 Blood Cultures: No Data to Display Toxicology Panel: Ethyl Alcohol Level < 3.0 mg/dL (<10) 08/08/22 11:00 Imaging and Studies Imaging and Studies Study information below may be from another EMR and interpreted by another provider. Please see original notes in EMR for more complete details. EKG Summary: DATE/TIME OF SERVICE: 08/08/22 1153 : 1960ERFORMING LOCATION: [place] APPROVED REPORT Exam: Resting ECG Reason for Exam: Fall Patient Location: E HR:111 bpm ECG Measurements Heart Rate 111 AXIS DE 176 P 73 QRSd 84 QRS 85 QT 346 T-64 QTc 471 Conclusion Sinus tachycardia...rate> 99 Echocardiogram Summary: Date of Exam: 03/04/21Sex: F Admission Date: 03/03/21 : 1960 Age: 60 APPROVED REPORT EXAM: Comprehensive 2D, Doppler, and color-flow Echocardiogram Patient Location: In-Patient Room/Bed: [id number] Front Office Spec: Marilee Chanel RDCS (AE) Indications: New onset atrial flutter Other Information Study Quality: Adequate. Technically limited study due to inability to position patient, uncooperative patient, exam done bedside. Conclusion Normal left ventricular wall thickness and chamber size. Estimated ejection fraction is 60 to 65%. There are no segmental wall motion abnormalities Normal right ventricular size and systolic function Both atria are normal in size There are no structural or hemodynamically significant valvular abnormalities Normal estimated right ventricular systolic pressure 21 mmHg Anesthesia Assessment and Plan Anesthesia History Personal History: No History of Anesthesia Complications Family History: Family History Unknown Exercise Tolerance Exercise Tolerance: Metabolic Equivalents>4 Cardiac & Pulmonary Exam Cardiac Exam: Normal S1/S2 Heart Sounds Pulmonary Exam: Clear Bilateral Breath Sounds Implantable Cardiac Device Does patient have a Pacemaker or an ICD?: No Airway Exam Known Difficult Airway: No Mallampati Class: 2 Mouth Opening: Normal (> 3cm) Thyromental Distance: Greater than 3 cm Neck Range of Motion: Full ROM Neck Circumference: Normal Teeth Condition: Normal Dentition ASA Classification ASA Score: ASA 2 Emergency Case?: No NPO Status NPO Status: NPO Clears >2 hours, Solids >8 hours Anesthesia Plan Resuscitation Status: Full Code Anesthesia Technique: Spinal Anesthesia Airway Planned: Natural Airway Monitors Used: Standard Monitors
[2022-08-08] MEDS: Melatonin 3 MG TAB 9 MG PO (22:13)
[2022-08-08] MEDS: QUEtiapine 100 MG TAB 300 MG PO (22:13)
[2022-08-08] MEDS: Insulin NPH-Human 300 UNITS/3 ML PEN 20 UNIT SC (22:14)
[2022-08-09] VITALS (7 sets, daily range): BP systolic 90–134; BP diastolic 56–76; PULSE 92–114; RESP 16–18; TEMP 35.6–37.1; O2SAT 90–99
[2022-08-09] MEDS: LORazepam 1 MG TAB PO/SL ×2 (00:49→16:03)
[2022-08-09] MEDS: Ketorolac 15 MG/ML VIAL IVP ×2 (00:50→09:23)
[2022-08-09] MEDS: Ondansetron 4 MG/2 ML VIAL IVP ×2 (02:19→16:57)
--- NOTE | 2022-08-09 05:39 | NUR.NOTE ---
upon arrival patient was sedated abd drowsy, but nausea and vomiting was keeping her awake. Pt awake throughout night. patient having n/v throughout, medications inneffective. dr aware. quinones activated by , patient stated that she has not had a problem with alcohol abuse since age 18. patient restless throughtout night. purposefully pulling off telemetry. im not going to keep these on. Pts pain controlled better with tramadol. patient is resting for the first time tonight at the time of this note being written. wctm.
[2022-08-09 07:18] LABS: Abs Immature Grans 0.08 10^3/uL (0.0-0.06); Absolute Basophil Count 0.05 10^3/uL (0.0-0.2); Absolute Eosinophil Count 0.12 10^3/uL (0.0-0.7); Absolute Lymphocyte Count 1.68 10^3/uL (1.2-3.4); Absolute Monocyte Count 0.97 10^3/uL (0.1-0.8); Basophils % 0.4; Eosinophils % 0.9; HCT 25.2 % (36.0-46.0); HGB 7.2 g/dL (11.2-15.7); Immature Grans % 0.6; Lymphocytes % 12.3; MCH 16.8 pg (27.0-33.0); MCHC 28.6 % (32.0-36.0); MCV 59 fL (80-95); Monocytes % 7.1; Neutrophils % 78.7; Platelet Count 315 10^3/uL (130-400); RBC 4.29 10^6/uL (3.93-5.22); RDW-SD 41.5 fL; WBC 13.65 10^3/uL (4.4-10.8)
[2022-08-09 07:19] LABS: Absolute Neutrophil Count 10.74 10^3/uL (1.2-6.7)
[2022-08-09 07:38] LABS: Anion Gap 6.6 mmol/L (3-11); BUN 25 mg/dL (7-18); CO2 35.4 mmol/L (21.0-32.0); CREATININE 1.3 mg/dL (0.55-1.02); Calcium 10.2 mg/dL (8.5-10.1); Chloride 97 mmol/L (98-107); Estimated GFR 46.49 (mL/min/1.73m2); Glucose 162 mg/dL (74-106); Magnesium 1.9 mg/dL (1.8-2.4); Sodium 139 mmol/L (136-145)
[2022-08-09 07:49] LABS: Anisocytosis 3+; Diff Comment RBC Morph Reviewed; Hypochromasia 2+; Microcytosis 2+
[2022-08-09 07:50] LABS: Poikilocytes 1+; Polychromasia Present
[2022-08-09] MEDS: Lactated Ringers 1,000 ML 75 ML IV ×2 (08:43→21:31)
[2022-08-09] MEDS: Lactated Ringers 500 ML IV (09:15)
--- NOTE | 2022-08-09 09:15 | DI.RAD_ITS ---
Exam(s) XR HIP LT IN OR EXAM: XR HIP LT IN OR CLINICAL HISTORY: left hip fx. TECHNIQUE: 2D digital imaging was performed. COMPARISON: No exams were available for comparison FINDINGS: Fluoroscopy provided intraoperatively during left hip pinning. See procedure report for details. IMPRESSION: As above. Total fluoroscopy time 45 seconds. Radiation exposure index/cumulative dose: shaina Mullins= 5.9 mGy DATA REPOSITORY: RADIATION DOSE DELIVERED:
--- NOTE | 2022-08-09 09:50 | OCONE_ITS ---
Date of service: 08/09/22 Time of Service: 09:50 History of Present Illness History of Present Illness Chief Complaint: left hip pain Narrative: The patient is a pleasant 62F who fell on am (08/06/22) at home onto her left side. This was a mechanical fall without any prodromal symptoms. She had pain in the left hip but was able to ambulate quite a bit using her 's walker in the house all day and wednesday. On Wednesday, the pain wasn't improving, so her , Campos, called 911 and an ambulance brought her to [facility]. She was found to have a left hip fracture, subcapital, valgus impacted. Pain has been well-controlled. She was admitted to hospital medicine and kept NPO after midnight. Denies LLE numbness/tingling. Consults Requesting physician: Erin Damon Consult Reason Left hip fracture Assessment and Plan Assessment and plan (1) Closed fracture of neck of left femur: Status: Acute Assessment and plan: Left subcapital femoral neck valgus impacted fracture. Discussed options. Given age and activity (no ambulatory devices at baseline) recommended total hip arthroplasty vs fracture fixation. Hemiarthroplasty would likely lead to failure given her age and activity level. She and her discussed expected risks and benefits and would like to proceed with fracture fixation with percutaneous pinning. We discussed risks including but not limited to: Bleeding, infection, damage to nerves/vessels, need for further surgery, avascular necrosis, nonunion, malunion, hardware failure, need for conversion to total hip arthroplasty. I quoted about 40-50% chance of failure of fixation but this may be lower in reality since she has walked on this for the past 2 days. She and her expressed understanding and signed informed consent. [facility] All Active Problems Discharge planning issues (Acute) DVT prophylaxis (Acute) Closed fracture of neck of left femur (Acute) Hypokalemia (Acute) Constipation (Acute) Drug-induced parkinsonism (Acute) Neuroleptic induced parkinsonism (Acute) Tubular adenoma (Acute ~06/10/21) Hyperplastic colon polyp (Acute ~06/10/21) Farrell's 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 (Acute) Erosive esophagitis (Acute) Esophageal ulcer with bleeding (Acute) Chronic diarrhea (Acute) Black tarry stools (Acute) Leukocytosis (Acute) Pleural effusion (Acute) Ventral hernia (Acute) Depression (Chronic) Bipolar 1 disorder (Acute) Cholelithiasis (Chronic) Medical History Alcohol abuse Anxiety Farrell's esophagus Chronic iron deficiency anemia Chronic pancreatitis due to acute alcohol intoxication Diabetes Diabetes mellitus type 2 in obese ETOH abuse History of pilonidal cyst Poorly controlled diabetes mellitus Surgical History History of section History of colonoscopy with polypectomy (~06/10/21) History of esophagogastroduodenoscopy (EGD) (~06/10/21) History of hysterectomy History of tonsillectomy S/P laparoscopic procedure cyst removed from stomach per patient S/P surgical removal of pilonidal cyst Family History Father Hypertension Diabetes Heart disease Social History Smoking/Tobacco Use Status: Former Tobacco Use Quit Date: 02/07/21 Smoking risk assessment performed?: Yes Alcohol Intake: former Drug use: Never Substance use type: does not use Details: pt. 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 Exam Narrative Exam Narrative: Tired appearing, but awake, alert, responsive, interactive. Answers questions. Appears comfortable. Left Leg: Skin intact in thigh. SILT sp/dp/t/s/s. EHL/FHL/APF/ADF intact 2+DP pulse. Results Last Vital Signs Temp 36.6 C 08/09/22 07:41 Pulse 97 H 08/09/22 07:48 Resp 18 08/09/22 07:41 BP 111/68 08/09/22 07:41 Pulse Ox 90 L 08/09/22 07:41 Labs 08/09/22 07:05 08/09/22 07:05 Labs: Laboratory Results - last 24 hr 08/08/22 08/08/22 08/08/22 11:00 11:00 11:00 WBC 14.09 H RBC 5.38 H Hgb 9.1 L Hct 30.9 L MCV 57 L MCH 16.9 L MCHC 29.4 L RDW 21.5 H Plt Count 417 H MPV Immature Gran % 0.7 Neutrophils % 86.4 Lymphocytes % 7.8 Monocytes % 4.7 Eosinophils % 0.1 Basophils % 0.3 Nucleated RBC % 0.0 Absolute Neutrophils 12.17 H Absolute Lymphocytes 1.10 L Absolute Monocytes 0.66 Absolute Eosinophils 0.01 Absolute Basophils 0.04 RBC Morphology See Below Polychromasia Hypochromasia 2+ Poikilocytosis 1+ Anisocytosis 3+ Microcytosis 2+ Sodium 131 L Potassium 2.8 L* Chloride 91 L Carbon Dioxide 32.5 H Anion Gap 7.5 BUN 14 Creatinine 1.2 H Est GFR (CKD-EPI 2020) 51.18 Glucose 305 H Hemoglobin A1c Calcium 10.6 H Magnesium 1.7 L Total Bilirubin 0.5 AST 12 L ALT 19 Alkaline Phosphatase 102 Total Protein 7.7 Albumin 3.1 L Ethyl Alcohol < 3.0 COVID-19 Source SARS-CoV-2 (PCR) Patient ABO/Rh Antibody Screen Crossmatch 08/08/22 08/08/22 08/08/22 11:00 12:02 17:47 WBC RBC Hgb Hct MCV MCH MCHC RDW Plt Count MPV Immature Gran % Neutrophils % Lymphocytes % Monocytes % Eosinophils % Basophils % Nucleated RBC % Absolute Neutrophils Absolute Lymphocytes Absolute Monocytes Absolute Eosinophils Absolute Basophils RBC Morphology Polychromasia Hypochromasia Poikilocytosis Anisocytosis Microcytosis Sodium Potassium Chloride Carbon Dioxide Anion Gap BUN Creatinine Est GFR (CKD-EPI 2020) Glucose Hemoglobin A1c 7.2 H Calcium Magnesium Total Bilirubin AST ALT Alkaline Phosphatase Total Protein Albumin Ethyl Alcohol COVID-19 Source Nasal/Nares SARS-CoV-2 (PCR) Negative Patient ABO/Rh O Positive Antibody Screen NEGATIVE Crossmatch See Detail 08/09/22 08/09/22 07:05 07:05 WBC 13.65 H RBC 4.29 Hgb 7.2 L Hct 25.2 L MCV 59 L MCH 16.8 L MCHC 28.6 L RDW 21.0 H Plt Count 315 MPV Immature Gran % 0.6 Neutrophils % 78.7 Lymphocytes % 12.3 Monocytes % 7.1 Eosinophils % 0.9 Basophils % 0.4 Nucleated RBC % 0.0 Absolute Neutrophils 10.74 H Absolute Lymphocytes 1.68 Absolute Monocytes 0.97 H Absolute Eosinophils 0.12 Absolute Basophils 0.05 RBC Morphology See Below Polychromasia Present Hypochromasia 2+ Poikilocytosis 1+ Anisocytosis 3+ Microcytosis 2+ Sodium 139 Potassium 4.0 D Chloride 97 L Carbon Dioxide 35.4 H Anion Gap 6.6 BUN 25 H Creatinine 1.3 H Est GFR (CKD-EPI 2020) 46.49 Glucose 162 H Hemoglobin A1c Calcium 10.2 H Magnesium 1.9 Total Bilirubin AST ALT Alkaline Phosphatase Total Protein Albumin Ethyl Alcohol COVID-19 Source SARS-CoV-2 (PCR) Patient ABO/Rh Antibody Screen Crossmatch Imaging Imaging Studies: XR Pelvis and Left femur reviewed, valgus impacted subcapital femoral neck fracture. CT scan with no significant displacement or sagittal plane angulation.
[2022-08-09] MEDS: Tranexamic Acid 1,000 MG/10 ML VIAL 1000 MG (10:28)
[2022-08-09] MEDS: Normal Saline 1,000 ML 30 ML IV (10:29)
--- NOTE | 2022-08-09 10:50 | PDOC.CMIN ---
- If Service Date Differs Date of service: 08/09/22 Time of Service: 10:50 Care Management Initial Assess REASON FOR HOSPITALIZATION:: Left hip subcapital fracture PAST MEDICAL HISTORY/PAST SURGICAL HISTORY:: All Active Problems: Discharge planning issues (Acute), DVT prophylaxis (Acute), Closed fracture of neck of left femur (Acute), Hypokalemia (Acute), Constipation (Acute), Drug-induced parkinsonism (Acute),. Neuroleptic induced parkinsonism (Acute), Tubular adenoma (Acute ~06/10/21), Hyperplastic colon polyp (Acute ~06/10/21), Farrell's 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 (Acute), Erosive esophagitis (Acute),. Esophageal ulcer with bleeding (Acute), Chronic diarrhea (Acute),. Black tarry stools (Acute), Leukocytosis (Acute), Pleural effusion (Acute),. Ventral hernia (Acute), Depression (Chronic), Bipolar 1 disorder (Acute), and Cholelithiasis (Chronic). Medical History: Alcohol abuse, Anxiety, Farrell's esophagus, Chronic iron deficiency anemia, Chronic pancreatitis due to acute alcohol intoxication,. Diabetes, Diabetes mellitus type 2 in obese, ETOH abuse, History of pilonidal cyst, and Poorly controlled diabetes mellitus. Surgical History: History of section, History of colonoscopy with polypectomy (~06/10/21), History of esophagogastroduodenoscopy (EGD) (~06/10/21), History of hysterectomy, History of tonsillectomy, S/P laparoscopic procedure - cyst removed from stomach per patient, and. S/P surgical removal of pilonidal cyst. PREVIOUS FUNCTIONAL STATUS/SOCIAL/FAMILY SUPPORTS:: Jennifer lives in [facility] with her Campos. 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 She and her have two adult sons, one of whom lives locally and is supportive of the couple. Jennifer is independent with her ADLs at baseline. CURRENT FUNCTIONAL STATUS:: Jennifer is lying in bed when CM comes to meet with her. Her Campos is present in the room. Jennifer had surgery this morning to repair the closed fracture of the neck of her left femur. She states she is doing well and hopes to be returning home tomorrow. ADVANCE DIRECTIVES:: None on file. Has patient been provided with info about the portal/API?: Yes Did the patient sign up for the portal?: No CODE STATUS:: Full Code INSURANCE COVERAGE / FINANCIAL ISSUES:: Medicaid. CURRENT HOME/COMMUNITY SERVICES/EQUIPMENT:: None. PRIMARY CARE PHYSICIAN:: MAIDA Whyte POTENTIAL DISCHARGE NEEDS:: Follow up appointments with PCP and surgeon, potential new HH PT vs PT on an outpatient basis. PATIENT/FAMILY EDUCATION NEEDS:: Review of discharge instructions including medications and limitations; discuss Ask Me Three and self management. ANTICIPATED BARRIERS TO DISCHARGE:: None identified at this time. TRANSPORTATION:: Via private vehicle with . PLAN:: Jennifer will return home with new HH PT vs outpatient PT when medically cleared by provider. She will follow up with her PCP, surgeon and plan of care as directed. She will be transported home by her via private vehicle when ready. CM will continue to follow.
--- NOTE | 2022-08-09 10:59 | W.PM.OP ---
Date of service: 08/09/22 Time of Service: 10:59 Operative Note Operative Note DATE OF PROCEDURE: 08/09/22 PRE-OP DIAGNOSIS: left subcapital valgus impacted femoral neck fracture PROCEDURE: Percutaneous pinning left hip fracture SURGEON: David Lynne Spinal, Local (Bupivacaine, toradol, clonidine, Morphine mixture) 20 cc injected subq ESTIMATED BLOOD LOSS: 10 COMPLICATIONS: None Patient was transported to: PACU Patient's condition: stable Implants: stainless steel cannulated screws, hex heads, 7.3 mm. Inferior screw 90 mm. Anterior superior screw 70 mm. Posterior superior screw 75 mm. Indications: 62F with valgus impacted left subcapital femoral neck fracture, no premorbid hip pain or arthritic disease. Discussed options including perc pinning and KYUNG and she elected to proceed with a left hip percutaneous pinning. Findings: Stable left hip fracture. Procedure Description: Patient identified in pre-op, brought to OR, ID confirmed upon entering room. Transferred to hana table where spinal was performed by anesthesia team. Transferred to supine position on hana table, both feet in traction boots. Right LE scissored down slightly. No reduction performed. Left hip prepped/draped in usual sterile fashion. Time out performed according to hospital protocol, all agreed to proceed, confirmed side site and procedure. 4 cm incision made lateral to left proximal femur, through IT band. Snap used to spread down to bone. A guide wire for 7.3 mm stainless screws placed inferior along femoral neck using fluoroscopy to confirm position. Placed two more wires using fluoroscopy more proximal in the neck, one anterior and one posterior. Used appropriate drill to break lateral cortex and placed 3 appropriately sized screws up along wires starting inferior (great bite), then anterior (mild bite), then posterior (Very good bite). Removed wires after confirming position on fluoroscopy. Irrigated wounds using normal saline, then closed with deep 0 vicryl sutures, then 2-0 vicryl and 4-0 monocryl for skin. Mepilex applied. Patient awakened from anesthesia and taken to post-op area in stable condition having suffered no apparent untoward events. All sponge, needle, instrument counts correct at the end of the case.
[2022-08-09] MEDS: Potassium Chloride 20 MEQ TABCR 40 MEQ PO ×2 (11:33→20:19)
[2022-08-09] MEDS: Pantoprazole 40 MG TABCR PO ×2 (11:34→20:19)
[2022-08-09] MEDS: Docusate Sodium 100 MG CAP PO ×3 (11:35→20:19)
[2022-08-09] MEDS: Polyethylene Glycol 3350 17 GM PACKET PO ×2 (11:43→20:20)
--- NOTE | 2022-08-09 12:08 | PGE_ITS ---
Date of Service Date of service: 08/09/22 Time of Service: 12:09 Assessment and Plan Assessment and plan (1) Closed fracture of neck of left femur: Status: Acute Assessment and plan: Mechanical fall; ortho consult - surgery today Full diet Dilaudid/ketorolac for pain LR @ 125/h Repaired by ortho today per ortho:Weight bearing as tolerated, PT OT (ordered) walker or assistive device at all times. (2) Alcohol abuse: Status: Chronic Assessment and plan: CIWA scale; multivitamins Scoring 6 - refusing lorazepam, however is alert and pleasant (3) Diabetes: Status: Chronic Assessment and plan: last A1C 6.1 in jun 11, 2021 and up to 7.2 today - should fu with PCP Full diet blood sugar checks AC/HS and prn sliding scale as needed increased basal insulin back to 40 units NPH qHS hold oral antidiabetic agents Qualifiers: Diabetes mellitus complication status: without complication Diabetes mellitus detention insulin use: with detention use Diabetes mellitus type: type 2 Qualified Code(s): E11.9 - Type 2 diabetes mellitus without complications; Z79.4 - USP (current) use of insulin (4) Farrell's esophagus: Status: Chronic Assessment and plan: Chronic Frequent regurgitation - reglan IV now and every 6 h scheduled and protonix IV x 1 and will start oral tomorrow. (5) Hypokalemia: Status: Acute Assessment and plan: K 4.0 - will monitor (6) Bipolar 1 disorder: Status: Acute Assessment and plan: continue home medication (7) Anemia: Status: Chronic Assessment and plan: Blood loss from fracture - Hgb 7.2 - one unit of PRBCs given; rechech H&H @ 1800h is 8.2, ordered another unit of PRBC and will recheck in am (8) DVT prophylaxis: Status: Acute Assessment and plan: SCD Start heparin tomorrow (9) Discharge planning issues: Status: Acute Assessment and plan: home with HH once medically stable. discussed with DR Damon Subjective Subjective Patient reports: pain is less and afebrile; denies nausea or vomiting Interval history since last seen: Jennifer was eager to go to the OR to get fixed today. On return she was ready to have her barba catheter removed and she stated her pain is controlled. Exam Const General: cooperative, comfortable and no acute distress Nutritional Appearance: average body habitus HENMT Head: normal to inspection Eyes General: appearance normal, both eyes and all related structures Eyelids: eyelids normal Conjunctivae: conjunctivae normal Sclera: sclerae normal Neck Neck: full ROM Resp Effort & Inspection: normal respiratory effort, able to speak in complete sentences, no audible wheezes and cough Cardio Rate: regular rate Rhythm: regular rhythm GI Inspection: normal to inspection Auscultation: normal bowel sounds Neuro General: patient alert, patient awake and patient oriented x3 Cognition: normal cognition Speech: speech normal Extrem General: normal to inspection (Left distal pulses intact. There is slight shortening no rotation noted.) Objective Last Vital Signs Temp 36.6 C 08/09/22 07:41 Pulse 97 H 08/09/22 07:48 Resp 18 08/09/22 07:41 BP 111/68 08/09/22 07:41 Pulse Ox 90 L 08/09/22 07:41 Laboratory Results - last 24 hr 08/08/22 08/08/22 08/08/22 11:00 12:02 17:47 WBC RBC Hgb Hct MCV MCH MCHC RDW Plt Count MPV Immature Gran % Neutrophils % Lymphocytes % Monocytes % Eosinophils % Basophils % Nucleated RBC % Absolute Neutrophils Absolute Lymphocytes Absolute Monocytes Absolute Eosinophils Absolute Basophils RBC Morphology Polychromasia Hypochromasia Poikilocytosis Anisocytosis Microcytosis Sodium Potassium Chloride Carbon Dioxide Anion Gap BUN Creatinine Est GFR (CKD-EPI 2020) Glucose Hemoglobin A1c 7.2 H Calcium Magnesium COVID-19 Source Nasal/Nares SARS-CoV-2 (PCR) Negative Patient ABO/Rh O Positive Antibody Screen NEGATIVE Crossmatch See Detail 08/09/22 08/09/22 07:05 07:05 WBC 13.65 H RBC 4.29 Hgb 7.2 L Hct 25.2 L MCV 59 L MCH 16.8 L MCHC 28.6 L RDW 21.0 H Plt Count 315 MPV Immature Gran % 0.6 Neutrophils % 78.7 Lymphocytes % 12.3 Monocytes % 7.1 Eosinophils % 0.9 Basophils % 0.4 Nucleated RBC % 0.0 Absolute Neutrophils 10.74 H Absolute Lymphocytes 1.68 Absolute Monocytes 0.97 H Absolute Eosinophils 0.12 Absolute Basophils 0.05 RBC Morphology See Below Polychromasia Present Hypochromasia 2+ Poikilocytosis 1+ Anisocytosis 3+ Microcytosis 2+ Sodium 139 Potassium 4.0 D Chloride 97 L Carbon Dioxide 35.4 H Anion Gap 6.6 BUN 25 H Creatinine 1.3 H Est GFR (CKD-EPI 2020) 46.49 Glucose 162 H Hemoglobin A1c Calcium 10.2 H Magnesium 1.9 COVID-19 Source SARS-CoV-2 (PCR) Patient ABO/Rh Antibody Screen Crossmatch Time Spent with Patient Time Spent with Patient: 25-34 minutes Time was spent: preparing to see the patient(eg.review tests), ordering medications,tests, procedures, referring, communicating with other health healthcare management consultant, indepentently interpreting results, counseling the patient and care coordination
[2022-08-09] MEDS: Insulin Aspart 300 UNITS/3 ML PEN SC ×3 (12:20→21:34)
--- NOTE | 2022-08-09 12:33 | W.ANESPOSTOP ---
Postoperative Evaluation Date, Time and Location Date Performed: 08/09/22 Time Performed: 12:33 Patient Location: Med/Surg Vital Signs Most Recent Imported Vital Signs: Most Recent Vital Signs Temp Pulse Resp BP Pulse Ox 35.6 C L 95 H 16 90/56 L 97 08/09/22 11:30 08/09/22 11:30 08/09/22 11:30 08/09/22 11:30 08/09/22 11:30 Pain Score Most Recent Pain Score: Most Recent Pain Score Pain Level [Left Hip] 5 08/08/22 23:28 Pain Level 5 08/09/22 07:41 Assessment Mental Status: Awake (Alert & Oriented to Patient Baseline) Airway and Respiratory Function: Patent airway with normal (patient baseline) respiratory exam Cardiovascular Function: Hemodynamically Stable Hydration Status: Adequately Hydrated Nausea & Vomiting: No Nausea or Vomiting Pain: Pt. Denies Any Pain (Still under spinal effect.) Peripheral Nerve Block: Patient did not receive a nerve block Postoperative Comments:: Nursing will assess spinal resolution.
[2022-08-09] MEDS: MULTIVITAMIN 10 ML, THIAMINE 100 MG, FOLIC ACID 1 MG in DEXTROSE 5%-0.45% SALINE 1,000 ML 168.533 ML IV ×2 (13:01)
[2022-08-09] MEDS: Prochlorperazine 10 MG/2 ML VIAL 5 MG IVP (13:15)
[2022-08-09] MEDS: Normal Saline Flush 10 ML SYR IVP ×2 (13:16→20:20)
[2022-08-09] MEDS: Divalproex Sodium 500 MG TAB.ER.24H 1000 MG PO (15:56)
[2022-08-09] MEDS: Sucralfate 1 GM TAB PO ×2 (15:56→20:19)
[2022-08-09 18:12] LABS: HCT 27.1 % (36.0-46.0); HGB 8.2 g/dL (11.2-15.7)
[2022-08-09] MEDS: Divalproex Sodium 250 MG TAB.ER.24H 500 MG PO (18:23)
[2022-08-09] MEDS: Metoclopramide 10 MG/2 ML VIAL IVP ×2 (20:20→23:23)
[2022-08-09] MEDS: QUEtiapine 100 MG TAB 300 MG PO (21:32)
[2022-08-09] MEDS: Melatonin 3 MG TAB 9 MG PO (21:32)
[2022-08-09] MEDS: Insulin NPH-Human 300 UNITS/3 ML PEN 40 UNIT SC (21:33)
[2022-08-10] VITALS (12 sets, daily range): BP systolic 100–133; BP diastolic 62–85; PULSE 86–104; RESP 16–18; TEMP 36–36.7; O2SAT 92–100
--- NOTE | 2022-08-10 | DI.RAD_ITS ---
Exam(s) XR HIP LT COMPLETE AP PELVIS EXAM: XR HIP LT COMPLETE AP PELVIS CLINICAL HISTORY: s/p fall. TECHNIQUE: 2D digital imaging was performed. COMPARISON: CR,XR XR FEMUR LT from 08/08/2022 FINDINGS: There are now 3 screws across the subcapital fracture site in the left femoral neck. Satisfactory ap pearance. No additional fractures evident. IMPRESSION: As above. DATA REPOSITORY: RADIATION DOSE DELIVERED:
[2022-08-10] MEDS: Metoclopramide 10 MG/2 ML VIAL IVP (06:06)
[2022-08-10 06:58] LABS: Abs Immature Grans 0.16 10^3/uL (0.0-0.06); Absolute Basophil Count 0.03 10^3/uL (0.0-0.2); Absolute Eosinophil Count 0.05 10^3/uL (0.0-0.7); Absolute Lymphocyte Count 1.94 10^3/uL (1.2-3.4); Absolute Monocyte Count 0.86 10^3/uL (0.1-0.8); Basophils % 0.2; Eosinophils % 0.4; HCT 32.6 % (36.0-46.0); HGB 9.9 g/dL (11.2-15.7); Immature Grans % 1.2; Lymphocytes % 14.7; MCH 20.2 pg (27.0-33.0); MCHC 30.4 % (32.0-36.0); MCV 66 fL (80-95); Monocytes % 6.5; RBC 4.91 10^6/uL (3.93-5.22); RDW 26.3 % (11.7-14.6); RDW-SD 59.7 fL; WBC 13.17 10^3/uL (4.4-10.8)
[2022-08-10 07:01] LABS: Absolute Neutrophil Count 10.14 10^3/uL (1.2-6.7)
[2022-08-10 07:24] LABS: Diff Comment RBC Morph Reviewed; Platelet Count 242 10^3/uL (130-400)
[2022-08-10 07:25] LABS: Anisocytosis 2+; Microcytosis 1+
[2022-08-10 07:38] LABS: Anion Gap 7.7 mmol/L (3-11); BUN 19 mg/dL (7-18); CO2 28.3 mmol/L (21.0-32.0); CREATININE 1.1 mg/dL (0.55-1.02); Calcium 9.8 mg/dL (8.5-10.1); Chloride 101 mmol/L (98-107); Estimated GFR 56.81 (mL/min/1.73m2); Glucose 52 mg/dL (74-106); Magnesium 1.8 mg/dL (1.8-2.4); Potassium 4.6 mmol/L (3.5-5.1); Sodium 137 mmol/L (136-145)
[2022-08-10] MEDS: Sucralfate 1 GM TAB PO ×2 (08:07→12:01)
[2022-08-10] MEDS: Docusate Sodium 100 MG CAP PO ×2 (08:07→13:38)
[2022-08-10] MEDS: Polyethylene Glycol 3350 17 GM PACKET PO (08:07)
[2022-08-10] MEDS: Pantoprazole 40 MG TABCR PO (08:07)
[2022-08-10] MEDS: Thiamine 100 MG TAB PO (08:08)
--- NOTE | 2022-08-10 08:41 | NT_ITS ---
Occupational Therapy Notes 08/10/22 OT consult received and pts chart was reviewed. OT attempted to consult with pt this morning who was out of room for testing. Pts was in the room indicating that he is hoping to get PT services. He reports that the goal was that pt would be leaving today. He reports that he has 3 steps to enter his home and states that once she gets into the home everything is on the first floor and she should be able to perform her ADLs. He does state that they have a tub shower. He reports that the plan is to perform her bathing via sponge bath to start as they have a tub shower. If pt does not leave today as planned/indicated by her , OT will plan to follow up with pt tomorrow for initial evaluation. Valerie Payan, OTR/[facility]
--- NOTE | 2022-08-10 09:51 | CMPROGNOTE_ITS ---
- If Service Date Differs Date of service: 08/10/22 Time of Service: 09:51 Care Management Progress Note S/O: A: Jennifer is a 62 year old female admitted to [facility] on 08/08/22 with a left hip subcapital fracture. P: Jennifer will return home with new HH PT vs outpatient PT when medically cleared by provider. She will follow up with her PCP, surgeon and plan of care as directed. She will be transported home by her via private vehicle when ready. CM will continue to follow.
--- NOTE | 2022-08-10 12:05 | W.INDIABCONS ---
Date of service: 08/10/22 Time of Service: 12:06 Diabetes Inpatient Consult Reason for Visit: dm2 DESCRIPTION/ASSESSMENT: Jennifer admitted with left hip fracture with hx of alcohol abuse, Dm 2, obesity. Following regular meal plan with good intake. Hypoglcyemic noted this am, treated. Most recent A1C: 7.2% (08/08/22) indicates good glycemic control with NPH and meal time insulin. No Dm education needed at this time. Will be available prn. Time Spent in Nutritional Counseling and Treatment: 0
--- NOTE | 2022-08-10 12:53 | PGE_ITS ---
Date of Service Date of service: 08/10/22 Time of Service: 12:53 Assessment and Plan Assessment and plan (1) Closed fracture of neck of left femur: Status: Acute Assessment and plan: Jennifer is a 62-year-old who is status post percutaneous screw fixation of a left femoral neck fracture. She is doing well. She has been able to mobilize with minimal assistance. She has a supportive at home and I think should be fine to go home with home health services. No signs of complication. Follow-up in 4 weeks. I will update the discharge document. Subjective Subjective Interval history since last seen: Jennifer is POD#1 s/p screw fixation of a left hip fracture. She is doing well. She does have some pain but has been able to mobilize with minimal assistance. She has mobilized on her own and was found sitting in the floor last night without any particular fall. She denies any fevers or chills. She feels that her pain is controlled although it is sore around the left hip. She is anxious to go home. Exam Narrative Exam Narrative: Sitting up in the hospital bed. No acute distress. Evaluation the left leg shows no significant swelling. No bruising. The incision is well approximated with Steri-Strips. She is able to tolerate gentle internal and external rotation of the left hip with some mild pain. Sensation intact to light touch of the deep and superficial peroneal nerve and tibial nerve. Objective Last Vital Signs Temp 36.7 C 08/10/22 11:20 Pulse 86 08/10/22 11:20 Resp 16 08/10/22 11:20 BP 105/66 08/10/22 11:20 Pulse Ox 95 08/10/22 11:20 Laboratory Results - last 24 hr 08/08/22 08/09/22 08/10/22 17:47 18:07 06:25 WBC RBC Hgb 8.2 L Hct 27.1 L MCV MCH MCHC RDW Plt Count MPV Immature Gran % Neutrophils % Lymphocytes % Monocytes % Eosinophils % Basophils % Nucleated RBC % Absolute Neutrophils Absolute Lymphocytes Absolute Monocytes Absolute Eosinophils Absolute Basophils RBC Morphology Anisocytosis Microcytosis Sodium 137 Potassium 4.6 Chloride 101 Carbon Dioxide 28.3 Anion Gap 7.7 BUN 19 H Creatinine 1.1 H Est GFR (CKD-EPI 2020) 56.81 Glucose 52 L Calcium 9.8 Magnesium 1.8 Patient ABO/Rh O Positive Antibody Screen NEGATIVE Crossmatch See Detail 08/10/22 06:25 WBC 13.17 H RBC 4.91 Hgb 9.9 L Hct 32.6 L MCV 66 L D MCH 20.2 L MCHC 30.4 L RDW 26.3 H Plt Count 242 MPV Immature Gran % 1.2 Neutrophils % 77.0 Lymphocytes % 14.7 Monocytes % 6.5 Eosinophils % 0.4 Basophils % 0.2 Nucleated RBC % 0.0 Absolute Neutrophils 10.14 H Absolute Lymphocytes 1.94 Absolute Monocytes 0.86 H Absolute Eosinophils 0.05 Absolute Basophils 0.03 RBC Morphology See Below Anisocytosis 2+ Microcytosis 1+ Sodium Potassium Chloride Carbon Dioxide Anion Gap BUN Creatinine Est GFR (CKD-EPI 2020) Glucose Calcium Magnesium Patient ABO/Rh Antibody Screen Crossmatch Time Spent with Patient Time Spent with Patient: <25 minutes Time was spent: ordering medications,tests, procedures, referring, communicating with other health care services manager and counseling the patient
[2022-08-10] MEDS: Folic Acid 1 MG TAB PO (13:37)
[2022-08-10] MEDS: Multivitamin TAB 1 TAB PO (13:37)
--- NOTE | 2022-08-10 13:37 | DSE_ITS ---
Date of service: 08/10/22 Time of Service: 13:37 DS: Diagnosis Discharge Diagnosis (1) Closed fracture of neck of left femur: Status: Acute Asessment and Plan: Repaired with nails; discharge to home with HH PT, follow up with ortho (2) Alcohol abuse: Status: Chronic Asessment and Plan: Stop drinking alcohol; Recommend AA; resources provided (3) Diabetes: Status: Chronic Asessment and Plan: Continue home med routine; follow up with PCP (4) Farrell's esophagus: Status: Chronic Asessment and Plan: Keep the appointment you said you have @ [facility] [place] regarding your GI issues. You did continue to have reflux while you were hospitalized. (5) Hypokalemia: Status: Acute Asessment and Plan: Your potassium has been low, but is normal now. We will have your labs checked in one week Start Potassium 20 meq daily until follow up with PCP (6) Bipolar 1 disorder: Status: Acute Asessment and Plan: Stable, continue home meds (7) Anemia: Status: Chronic Asessment and Plan: Will have levels checked; follow up with PCP (8) DVT prophylaxis: Status: Acute Asessment and Plan: ASA 81 mg BID (9) Discharge planning issues: Status: Acute Asessment and Plan: Discharge to home with HH PT - fu with ortho in 4 weeks Discharge Plan Disposition Patient Disposition: Home W/Home Health Services Condition: Improving Discharge Details Reason For Visit: Left Hip Subcapital Fracture Admit Date/Time: 08/08/22 12:02 Admit Provider: Erin Damon Attending Provider: Erin Damon Primary Care Provider: Ana Gillespie Hospital Course Hospital Course: 62-year-old female with past medical history of drug-induced parkinsonian, type 2 diabetes, alcohol abuse, esophagitis, chronic diarrhea, bipolar 1, alcohol withdrawal, and atrial flutter presented via EMS to the [facility] on 08/08/2022, after a mechanical trip on 08/07/2022.? Patient reported her slipper got stuck in the back of a chair and she fell over the chair landing on a vinyl floor in her kitchen.? Her helped her up. Denied any neck or back pain did not hit her head, no loss of consciousness. She complained only of left thigh and left hip pain.? Distal pulses were intact.? There was slight shortening no rotation noted of the left leg.? She reported she was able to put some weight on the leg.?Xray revealed acute nondisplaced left femoral fracture. She is admitted to the hospitalist service with orthopedic consult with plan for repair 08/09/2022.? She underwent repair with no issues.? The urinary catheter was removed.? She was able to tolerate food and liquids. She was on the CIWA scale while hospitalized and was scoring 4-6 and did receive some oral lorazepam. She was encouraged to stop drinking alcohol. She was started on aspirin 81 mg twice a day and told to continue to mitigate blood clots. We discussed the importance of taking folic acid and multivitamins. She is discharged stable, to home with her , ?with PT, oxycodone for pain, and follow up with orthopedics in 4 weeks. ? Discussed with Dr Damon and Dr Mills Home Meds and New Rx's Prescriptions: New folic acid 1 mg Tablet 1 mg PO DAILY Qty: 0 0RF polyethylene glycol 3350 17 gram Powder In Packet 17 g PO BID Qty: 0 0RF thiamine mononitrate (vit B1) [Vitamin B-1 (mononitrate)] 100 mg Tablet 100 mg PO QAM Qty: 0 0RF ibuprofen 800 mg tablet 800 mg PO Q8H PRNQty: 60 0RF oxycodone 5 mg tablet 5 mg PO Q6H PRNQty: 30 0RF aspirin [Adult Aspirin Regimen] 81 mg tablet,delayed release (DR/EC) 81 mg PO BID 30 Days Qty: 60 0RF multivitamin [Multiple Vitamins] Tablet 1 tab PO DAILY Qty: 30 0RF Continued divalproex [Depakote ER] 250 mg tablet extended release 24 hr 500 mg PO DAILY Rx Instructions: AT 1900 insulin aspart U-100 [Novolog FlexPen U-100 Insulin] 100 unit/mL (3 mL) insulin pen 5 unit subcut TID Rx Instructions: Inject 1 unit subcutaneously twice a day as directed, inject 2 units for BG 151-250, 3 units for BG 251-300, 4 units for BG 301-350 Humulin N NPH Insulin KwikPen 100 unit/mL (3 mL) insulin pen 40 unit SUBCUT DAILY Patient Comments: INJECT 40 UNITS UNDER THE SKIN EVERY NIGHT quetiapine 100 mg tablet 300 mg PO HS sucralfate 1 gram tablet 1 g PO QID Patient Comments: TAKE ONE TABLET BY MOUTH FOUR TIMES A DAY melatonin 10 mg Tablet 10 mg PO QHS divalproex [Depakote ER] 500 mg Tablet Extended Release 24 Hr 1,000 mg PO DAILY Rx Instructions: AT 1500 pantoprazole [Protonix] 40 mg tablet,delayed release (DR/EC) 40 mg PO BID Qty: 60 0RF Discharge Instructions Instructions: Ibuprofen (By mouth), Aspirin (By mouth), Thiamine (By mouth), Folic Acid (By mouth), Multivitamins, Adult Formula (By mouth), Oxycodone, Rapid Release (By mouth), Hip Fracture (GEN) Additional Instructions: Oxycodone, tylenol or ibuprofen for pain. Start aspirin 81 mg twice a day for 30 days so you don't get a blood clot. Take folic acid, thiamine and multivitamins. Stop drinking alcohol. Hip Fracture Discharge Instructions Activity: The most important activity is to work on transfering and short distance walking. You should try to take short walks a few times a day. You have no restrictions on movement or positioning, but do not try to force what you do. It will take some time for pain-free motion and function to return. Dressing: Keep the wound clean and dry. You may place a bandaid over the wound if you desire although it doesn't need anything. The steri-strips will come off on their own. All the sutures are buried in the skin. Follow-up: 4 weeks If you have any acute concerns or questions, please do not hesitate to contact the office at [phone]. You may contact Dr. Mills with any questions after hours through the hospital at [phone] or on his cell phone at [phone]. 1. Encounter Date and Reason I certify that Jennifer Irving was seen by Gt Mills MD on 08/10/22 and that I had a [id number] encounter with this patient that meets the physician face to face encounter requirements. 2. Clinical Findings Supporting Skilled Need and Homebound Status I certify that home health services are medically necessary, include either intermittent senior care and/or physical/speech therapy, and that this patient is homebound in that absences from the home require considerable and taxing effort and are infrequent or of short duration, or are attributable to th e need to receive medical care. [X] (a) Attached documentation from encounter provides clinical findings supporting skilled need and homebound status (including what assistance patient requires to leave the home). The encounter with the patient was in whole, or in part, for the following medical condition, which is the primary reason for home health care: Left Hip Subcapital Fracture Longterm: Physical Therapy: Jennifer would benefit from physical therapy to address her weakness and gait dysfunction following screw fixation of a hip fracture. She is WBAT with assistive devices. No positioning restrictions. Speech Therapy: Homebound: Jennifer is homebound. She is unable to leave her home unassisted due to pain and weakness and gait dysfunction. 3. Certification and Authentication I certify that I composed the above information based on my clinical judgement relating to this patient's medical condition and, if applicable, clinical findings communicated to me by the NPP or inpatient physician who performed the Home Health Referral. All further orders will be obtained through Dr. Mills Stand Alone Forms: Nursing Discharge Form Referrals: Gt Mills MD [ [facility] STAFF PHYSICIAN] - (A nurse will call you from Dr Mills's office later today to make an appointment with you ) Ana Gillespie [Primary Care Provider] - 08/25/22 10:45 am () Activity:: Activity as Tolerated Equipment/Supplies:: Walker Diet:: As Tolerated Discharge Orders Discharge Orders: Discharge Order (Routine); Ordered 08/10/22 Ordered By: Onelia Hidalgo Discharge Data Discharge Date/Time-TO BE ENTERED AT DEPARTURE: 08/10/22 15:00 DS: Summary Time Spent with Patient providing and/or coordinating discharge services: Greater than 30 minutes Status at Discharge Functional status at discharge: uses cane/walker Overall status at discharge: patient is progressing back to baseline Mental Status: mental status grossly normal Speech and Movement: speech and movement normal Mood: congruent mood Affect: normal affect Exam Const General: cooperative, comfortable and no acute distress Nutritional Appearance: average body habitus HENMT Head: normal to inspection Eyes General: appearance normal, both eyes and all related structures Eyelids: eyelids normal Conjunctivae: conjunctivae normal Sclera: sclerae normal Neck Neck: full ROM Resp Effort & Inspection: normal respiratory effort, able to speak in complete sentences, no audible wheezes and cough Cardio Rate: regular rate Rhythm: regular rhythm GI Inspection: normal to inspection Auscultation: normal bowel sounds Neuro General: patient alert, patient awake and patient oriented x3 Cognition: normal cognition Speech: speech normal Extrem General: normal to inspection (Left distal pulses intact. There is slight shortening no rotation noted.) Psych Mental Status: mental status grossly normal Speech and Movement: speech and movement normal Mood: congruent mood Affect: normal affect DS: Data Vitals/I&O Vitals and I&O: Vital Signs Temperature 36.7 C 08/10/22 11:20 Temperature Source Tympanic 08/10/22 11:20 Pulse 86 08/10/22 11:20 Pulse Rhythm Regular 08/10/22 06:34 Respiratory Rate 16 08/10/22 11:20 Respiratory Effort Normal 08/10/22 06:34 Respiratory Depth Normal 08/10/22 06:34 Respiratory Pattern Normal 08/10/22 06:34 Blood Pressure 105/66 08/10/22 11:20 Blood Pressure Position Sitting 08/08/22 10:04 Pulse Oximetry 95 08/10/22 11:20 Oxygen Delivery Method Room Air 08/10/22 11:20 Oxygen Flow Rate 0 08/10/22 11:20 Pain Level 0 08/10/22 06:24 Comment RN informed of vs at this time 08/09/22 11:30 Intake & Output 08/09/22 08/10/22 08/10/22 23:59 11:59 23:59 Intake Total 2513.7 / 4413.7 605 / 605 Output Total 600 / 735 200 / 200 Balance 1913.7 / 3678.7 405 / 405 Weight 70.2 kg Intake: IV 2153.7 / 4053.7 340 / 340 Oral 360 / 360 Blood Product 265 / 265 Rbc Leuko Reduced Unit 265 / 265 [id number] Output: Urine 300 / 425 200 / 200 Emesis 300 / 300 Other: Urine Color Yellow Yellow Urine Appearance Clear Clear Urine Odor Normal Normal Comment Second trip to the bathroom in 15 minutes; hat placed and no output at this time. voided independently Voiding Methods Toilet Bedside Commode Data Completed and Pending Labs on day of discharge: Labs from last 24 hours 08/10/22 08/10/22 08/09/22 06:25 06:25 18:07 WBC 13.17 H RBC 4.91 Hgb 9.9 L 8.2 L Hct 32.6 L 27.1 L MCV 66 L D MCH 20.2 L MCHC 30.4 L RDW 26.3 H Plt Count 242 MPV Immature Gran % 1.2 Neutrophils % 77.0 Lymphocytes % 14.7 Monocytes % 6.5 Eosinophils % 0.4 Basophils % 0.2 Nucleated RBC % 0.0 Absolute Neutrophils 10.14 H Absolute Lymphocytes 1.94 Absolute Monocytes 0.86 H Absolute Eosinophils 0.05 Absolute Basophils 0.03 RBC Morphology See Below Anisocytosis 2+ Microcytosis 1+ Sodium 137 Potassium 4.6 Chloride 101 Carbon Dioxide 28.3 Anion Gap 7.7 BUN 19 H Creatinine 1.1 H Est GFR (CKD-EPI 2020) 56.81 Glucose 52 L Calcium 9.8 Magnesium 1.8 Patient ABO/Rh Antibody Screen Crossmatch 08/08/22 17:47 WBC RBC Hgb Hct MCV MCH MCHC RDW Plt Count MPV Immature Gran % Neutrophils % Lymphocytes % Monocytes % Eosinophils % Basophils % Nucleated RBC % Absolute Neutrophils Absolute Lymphocytes Absolute Monocytes Absolute Eosinophils Absolute Basophils RBC Morphology Anisocytosis Microcytosis Sodium Potassium Chloride Carbon Dioxide Anion Gap BUN Creatinine Est GFR (CKD-EPI 2020) Glucose Calcium Magnesium Patient ABO/Rh O Positive Antibody Screen NEGATIVE Crossmatch See Detail PFSH All Active Problems (Updated 08/09/22 @ 18:32 by Onelia Hidalgo NP) Alcohol abuse (Chronic) Diabetes (Chronic) Farrell's esophagus (Chronic) Anemia (Chronic) Discharge planning issues (Acute) DVT prophylaxis (Acute) Closed fracture of neck of left femur (Acute) Hypokalemia (Acute) Constipation (Acute) Drug-induced parkinsonism (Acute) Neuroleptic induced parkinsonism (Acute) Tubular adenoma (Acute ~06/10/21) Hyperplastic colon polyp (Acute ~06/10/21) Farrell's 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 (Acute) Erosive esophagitis (Acute) Esophageal ulcer with bleeding (Acute) Chronic diarrhea (Acute) Black tarry stools (Acute) Leukocytosis (Acute) Pleural effusion (Acute) Ventral hernia (Acute) Depression (Chronic) Bipolar 1 disorder (Acute) Cholelithiasis (Chronic) Medical History (Updated 08/09/22 @ 18:32 by Onelia Hidalgo NP) Anxiety Chronic iron deficiency anemia Chronic pancreatitis due to acute alcohol intoxication Diabetes mellitus type 2 in obese ETOH abuse History of pilonidal cyst Poorly controlled diabetes mellitus Surgical History (Updated 08/09/22 @ 18:32 by Onelia Hidalgo NP) History of section History of colonoscopy with polypectomy (~06/10/21) History of esophagogastroduodenoscopy (EGD) (~06/10/21) History of hysterectomy History of tonsillectomy S/P laparoscopic procedure cyst removed from stomach per patient S/P surgical removal of pilonidal cyst Family History Father Hypertension Diabetes Heart disease Social History Smoking/Tobacco Use Status: Former Tobacco Use Quit Date: 02/07/21 Smoking risk assessment performed?: Yes Alcohol Intake: former Drug use: Never Substance use type: does not use Details: pt. 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 Time Spent with Patient Time Spent with Patient: 45-69 minutes Time was spent: preparing to see the patient(eg.review tests), ordering medications,tests, procedures, referring, communicating with other health career resource technician, indepentently interpreting results, counseling the patient and care coordination
[2022-08-10] MEDS: Ondansetron 4 MG/2 ML VIAL IVP (13:38)
--- NOTE | 2022-08-10 15:27 | PT.INNT ---
Date of service: 08/10/22 Time of Service: 15:27 PT Notes Visit Reasons: Left Hip Subcapital Fracture Patient was discharged from hospital. No PT services were provided during this episode of care. Per Nurse Sapphire, patient had little pain and was able to mobilize inside room with front-wheeled walker. Patient has walkers at home. Per SCREEN MAKING SUPERVISOR, patient lives with and has family support.
--- NOTE | 2022-08-10 16:43 | PDOC.CMDIS ---
- If Service Date Differs Date of service: 08/10/22 Time of Service: 16:43 LACE Index Scoring Tool - Questions: Length of Stay (in days): 2 Acuity (Admit via E.D.?): Yes Comorbidities: Diabetes w/o Complication E.D. Visits: 1 - Answers: Total Score: 7 Risk of Readmission: Low Risk Care Management Discharge Reason for Hospitalization: Left hip subcapital fracture Discharge Plan: Jennifer returned home today with new orders for HH PT. Her drove her home via private vehicle. She will follow up with Ortho, her PCP and her discharge plan of care. Patient/Family Education Needs: Review discharge instructions and limitations, discussion of self care needs including ask me three. Services Needed at Discharge: Home Health Care Services (HH PT)
[2022-08-12 16:05] LABS: Lab Add On Test done
== END 2022-08-10 15:00 | disposition home health service (06) | DRG 481 ==
LOC: ER 13:02 → MS 13:04
PROVIDERS: Nurse Practitioner Family; Orthopaedic Surgery; Admitting Provider Internal Medicine; Emergency Provider Registered Nurse Emergency; PCP Nurse Practitioner Family; Visit Provider Internal Medicine
PROC: 0QH734Z Insertion of Internal Fixation Device into Left Upper Femur, Percutaneous Approach (ICD-10-PCS; CPT 27235; principal; 2022-08-09 10:00)
DX: S72.012A Unspecified intracapsular fracture of left femur, initial encounter for closed fracture (principal); G21.11 Neuroleptic induced parkinsonism; I48.92 Unspecified atrial flutter; K86.0 Alcohol-induced chronic pancreatitis; E11.9 Type 2 diabetes mellitus without complications; E87.6 Hypokalemia; F31.9 Bipolar disorder, unspecified; Z79.4 Long term (current) use of insulin; F10.10 Alcohol abuse, uncomplicated; K20.90 Esophagitis, unspecified without bleeding; K52.9 Noninfective gastroenteritis and colitis, unspecified; W01.0XXA Fall on same level from slipping, tripping and stumbling without subsequent striking against object, initial encounter; K80.20 Calculus of gallbladder without cholecystitis without obstruction; D50.9 Iron deficiency anemia, unspecified; Z87.891 Personal history of nicotine dependence; K22.70 Barrett's esophagus without dysplasia
CPT/HCPCS: 27235; 36415; 36430; 73552; 80048; 80053; 86850; 86900; 86901; 86920; 87635; 93005; 96365; 96375; 99285; 71045; 72170; 73501; 73502; 73700; 80320; 83036; 83735; 85014; 85018; 85025; 93010; 99222; 99232; 99239; J0690; J0780; J1100; J1200; J1644; J1885; J2250; J2405; J2765; J3475; J3480; J3490; P9016

== ENCOUNTER 2022-08-12 12:44 | Inpatient (IN) | payer MEDICAID, SELFPAY ==
[2022-08-12] VITALS (50 sets, daily range): BP systolic 58–145; BP diastolic 39–112; PULSE 88–149; RESP 16–41; TEMP 36.5–36.6; O2SAT 83–100
--- NOTE | 2022-08-12 12:45 | ED.GENADUL_ITS ---
Discharge Plan Disposition Patient Disposition: Admit to [facility] Discharge Details Clinical Impression: Acute respiratory failure with hypoxia, Bilateral pneumonia, Status post hip surgery Admit Date/Time: 08/12/22 14:26 Admit Provider: Rory Sevilla Attending Provider: Rory Sevilla Primary Care Provider: Ana Gillespie ED Provider: Latosha Messer Discharge Data Discharge Date/Time-TO BE ENTERED AT DEPARTURE: 08/12/22 16:27 Medical Decision Making 1245 -- 62-year-old female with a history of type 2 diabetes, neuroleptic i nduced parkinsonian is him, alcohol abuse, esophagitis, anxiety, depression who is 3 days status post percutaneous pinning of her left hip fracture presents for unresponsiveness and hypoxia at home today. EMS reports that she seemed to respond to do doses of Narcan. Review of records notes that she was sent home with 30 tabs of oxycodone 3 days ago. Patient able to state that her last dose of oxycodone was last night and has not taken any oxycodone today and denies any other alcohol or drug use. Patient is drowsy but arousable and able to answer questions. She is oriented to person and place but not time. Heart rate 140s in sinus. Blood pressure within normal limits. Oxygen saturation low 90s on nonrebreather. PERRLA. She has crackles and coarse breath sounds throughout. She has slightly diminished breath sounds right chest. No wheezing noted. Left hip surgical site appears c lean dry and intact. She has no other focal deficits. No meningeal signs. Differential diagnosis includes opiate overdose, PE, CHF, pneumonia, COVID, influenza. Will obtain screening labs, portable chest x-ray, neb, IV Solu- Medrol and refer for CT chest. She was given a dose of 0.4 mg IV Narcan without significant response. 1300 --patient noted to be slightly more drowsy. She was given additional 0.4 mg IV Narcan without response. 1330 --labs and imaging reviewed. White blood cell count 15. Magnesium 1.5, will replete. Lactate 3.8. Procalcitonin 0.5. FLUVID negative. BNP 1041. Troponin negative. ABG notes a pH of 7.4, PCO2 34, PO2 68. Chest x-ray notes a bilateral pneumonia. IV vancomycin and Zosyn ordered. 1400 -- Case discussed with hospitalist who accepts patient for admission. Discussed with patient's at bedside and he is agreeable with plan for admission. Pt drowsy but airway intact and able to answer questions. Her respiratory rate is in the mid 20s with oxygen saturation low 90s on 2 to 3 L nasal cannula. Medical Records Medical records reviewed: Yes I reviewed the patient's medical records. Imaging Data Radiologic Study: Radiologist's impression: XR PORTABLE CHEST AP CLINICAL HISTORY:? sob, r/o acute disease TECHNIQUE:? 2D digital imaging was performed. COMPARISON:? CR,XR XR CHEST 1V IN DI DEPT from 08/08/2022 FINDINGS: LUNGS: Bilateral patchy infiltrates, right greater than left, greater in the lower lung howard.? No pleural abnormality seen. HEART: Normal size. AORTA: Normal diameter. BONES: Unremarkable for age.? Soft tissues: Unremarkable. IMPRESSION: Bilateral pneumonia. Lab Data Lab results reviewed: Yes I reviewed the patient's lab results. Labs: 08/12/22 14:20 Blood Blood Culture - Pending 08/12/22 14:08 Blood Blood Culture - Pending Laboratory Tests Range/Units 08/12/22 08/12/22 08/12/22 13:15 13:15 13:15 WBC (4.4-10.8) 10^3/uL 15.21 H RBC (3.93-5.22) 10^6/uL 5.69 H Hgb (11.2-15.7) g/dL 11.4 Hct (36.0-46.0) % 39.0 MCV (80-95) fL 69 L MCH (27.0-33.0) pg 20.0 L MCHC (32.0-36.0) % 29.2 L RDW (11.7-14.6) % 28.0 H Plt Count (130-400) 10^3/uL 254 MPV (8.0-11.0) fL Immature Gran % 1.1 Neutrophils % 88.9 Lymphocytes % 4.9 Monocytes % 3.4 Eosinophils % 1.2 Basophils % 0.5 Nucleated RBC % (0.0-0.3) % 0.0 Absolute Neutrophils (1.2-6.7) 10^3/uL 13.52 H Absolute Lymphocytes (1.2-3.4) 10^3/uL 0.75 L Absolute Monocytes (0.1-0.8) 10^3/uL 0.52 Absolute Eosinophils (0.0-0.7) 10^3/uL 0.18 Absolute Basophils (0.0-0.2) 10^3/uL 0.08 RBC Morphology See Below Anisocytosis 2+ Sample Site ABG pH (7.35-7.45) ABG pCO2 (35-45) mmHg ABG pO2 (80-105) mmHg ABG HCO3 (22-26) mmol/L ABG Total CO2 (23-27) mmol/L ABG O2 Saturation (95-98) % ABG Base Excess (-2-3) mmol/L VBG Lactate (0.9-1.7) MMOL/l FiO2 (liters per min) L Sodium (136-145) mmol/L 139 Potassium (3.5-5.1) mmol/L 4.1 Chloride (98-107) mmol/L 103 Carbon Dioxide (21.0-32.0) mmol/L 27.1 Anion Gap (3-11) mmol/L 8.9 BUN (7-18) mg/dL 10 Creatinine (0.55-1.02) mg/dL 1.1 H Est GFR (CKD-EPI 2020) (mL/min/1.73m2) 56.81 Glucose (74-106) mg/dL 118 H Calcium (8.5-10.1) mg/dL 9.7 Magnesium (1.8-2.4) mg/dL 1.5 L Total Bilirubin (0.2-1.0) mg/dL 0.4 AST (15-37) U/L 14 L ALT (14-59) U/L 13 L Alkaline Phosphatase (46-116) U/L 98 Troponin I (<or=60) ng/L < 50 NT-Pro-B Natriuret Pep (<300) pg/mL 1041 H Cancelled Total Protein (6.4-8.2) g/dL 6.4 Albumin (3.4-5.0) g/dL 2.2 L Lipase (16-77) U/L < 10 L Procalcitonin ng/mL Salicylates (<2.8) mg/dL Acetaminophen (10-30) ug/mL Ethyl Alcohol (<10) mg/dL < 3.0 COVID-19 Source SARS-CoV-2 (PCR) (Negative) Influenza Type A (PCR) (Negative) Influenza Type B (PCR) (Negative) RSV (PCR) (Negative) Range/Units 08/12/22 08/12/22 08/12/22 13:15 13:15 13:15 WBC (4.4-10.8) 10^3/uL RBC (3.93-5.22) 10^6/uL Hgb (11.2-15.7) g/dL Hct (36.0-46.0) % MCV (80-95) fL MCH (27.0-33.0) pg MCHC (32.0-36.0) % RDW (11.7-14.6) % Plt Count (130-400) 10^3/uL MPV (8.0-11.0) fL Immature Gran % Neutrophils % Lymphocytes % Monocytes % Eosinophils % Basophils % Nucleated RBC % (0.0-0.3) % Absolute Neutrophils (1.2-6.7) 10^3/uL Absolute Lymphocytes (1.2-3.4) 10^3/uL Absolute Monocytes (0.1-0.8) 10^3/uL Absolute Eosinophils (0.0-0.7) 10^3/uL Absolute Basophils (0.0-0.2) 10^3/uL RBC Morphology Anisocytosis Sample Site ABG pH (7.35-7.45) ABG pCO2 (35-45) mmHg ABG pO2 (80-105) mmHg ABG HCO3 (22-26) mmol/L ABG Total CO2 (23-27) mmol/L ABG O2 Saturation (95-98) % ABG Base Excess (-2-3) mmol/L VBG Lactate (0.9-1.7) MMOL/l 3.8 H* FiO2 (liters per min) L Sodium (136-145) mmol/L Potassium (3.5-5.1) mmol/L Chloride (98-107) mmol/L Carbon Dioxide (21.0-32.0) mmol/L Anion Gap (3-11) mmol/L BUN (7-18) mg/dL Creatinine (0.55-1.02) mg/dL Est GFR (CKD-EPI 2020) (mL/min/1.73m2) Glucose (74-106) mg/dL Calcium (8.5-10.1) mg/dL Magnesium (1.8-2.4) mg/dL Total Bilirubin (0.2-1.0) mg/dL AST (15-37) U/L ALT (14-59) U/L Alkaline Phosphatase (46-116) U/L Troponin I (<or=60) ng/L NT-Pro-B Natriuret Pep (<300) pg/mL Total Protein (6.4-8.2) g/dL Albumin (3.4-5.0) g/dL Lipase (16-77) U/L Cancelled Procalcitonin ng/mL Salicylates (<2.8) mg/dL Acetaminophen (10-30) ug/mL Ethyl Alcohol (<10) mg/dL Cancelled COVID-19 Source SARS-CoV-2 (PCR) (Negative) Influenza Type A (PCR) (Negative) Influenza Type B (PCR) (Negative) RSV (PCR) (Negative) Range/Units 08/12/22 08/12/22 08/12/22 13:15 13:43 13:59 WBC (4.4-10.8) 10^3/uL RBC (3.93-5.22) 10^6/uL Hgb (11.2-15.7) g/dL Hct (36.0-46.0) % MCV (80-95) fL MCH (27.0-33.0) pg MCHC (32.0-36.0) % RDW (11.7-14.6) % Plt Count (130-400) 10^3/uL MPV (8.0-11.0) fL Immature Gran % Neutrophils % Lymphocytes % Monocytes % Eosinophils % Basophils % Nucleated RBC % (0.0-0.3) % Absolute Neutrophils (1.2-6.7) 10^3/uL Absolute Lymphocytes (1.2-3.4) 10^3/uL Absolute Monocytes (0.1-0.8) 10^3/uL Absolute Eosinophils (0.0-0.7) 10^3/uL Absolute Basophils (0.0-0.2) 10^3/uL RBC Morphology Anisocytosis Sample Site Left Radial ABG pH (7.35-7.45) 7.43 ABG pCO2 (35-45) mmHg 34 L ABG pO2 (80-105) mmHg 68 L ABG HCO3 (22-26) mmol/L 23 ABG Total CO2 (23-27) mmol/L 24 ABG O2 Saturation (95-98) % 94 L ABG Base Excess (-2-3) mmol/L -2 VBG Lactate (0.9-1.7) MMOL/l FiO2 (liters per min) L 4 Sodium (136-145) mmol/L Potassium (3.5-5.1) mmol/L Chloride (98-107) mmol/L Carbon Dioxide (21.0-32.0) mmol/L Anion Gap (3-11) mmol/L BUN (7-18) mg/dL Creatinine (0.55-1.02) mg/dL Est GFR (CKD-EPI 2020) (mL/min/1.73m2) Glucose (74-106) mg/dL Calcium (8.5-10.1) mg/dL Magnesium (1.8-2.4) mg/dL Total Bilirubin (0.2-1.0) mg/dL AST (15-37) U/L ALT (14-59) U/L Alkaline Phosphatase (46-116) U/L Troponin I (<or=60) ng/L NT-Pro-B Natriuret Pep (<300) pg/mL Total Protein (6.4-8.2) g/dL Albumin (3.4-5.0) g/dL Lipase (16-77) U/L Procalcitonin ng/mL 0.5 Salicylates (<2.8) mg/dL Acetaminophen (10-30) ug/mL Ethyl Alcohol (<10) mg/dL COVID-19 Source Nasopharynx SARS-CoV-2 (PCR) (Negative) Negative Influenza Type A (PCR) (Negative) Negative Influenza Type B (PCR) (Negative) Negative RSV (PCR) (Negative) Negative Range/Units 08/12/22 14:08 WBC (4.4-10.8) 10^3/uL RBC (3.93-5.22) 10^6/uL Hgb (11.2-15.7) g/dL Hct (36.0-46.0) % MCV (80-95) fL MCH (27.0-33.0) pg MCHC (32.0-36.0) % RDW (11.7-14.6) % Plt Count (130-400) 10^3/uL MPV (8.0-11.0) fL Immature Gran % Neutrophils % Lymphocytes % Monocytes % Eosinophils % Basophils % Nucleated RBC % (0.0-0.3) % Absolute Neutrophils (1.2-6.7) 10^3/uL Absolute Lymphocytes (1.2-3.4) 10^3/uL Absolute Monocytes (0.1-0.8) 10^3/uL Absolute Eosinophils (0.0-0.7) 10^3/uL Absolute Basophils (0.0-0.2) 10^3/uL RBC Morphology Anisocytosis Sample Site ABG pH (7.35-7.45) ABG pCO2 (35-45) mmHg ABG pO2 (80-105) mmHg ABG HCO3 (22-26) mmol/L ABG Total CO2 (23-27) mmol/L ABG O2 Saturation (95-98) % ABG Base Excess (-2-3) mmol/L VBG Lactate (0.9-1.7) MMOL/l FiO2 (liters per min) L Sodium (136-145) mmol/L Potassium (3.5-5.1) mmol/L Chloride (98-107) mmol/L Carbon Dioxide (21.0-32.0) mmol/L Anion Gap (3-11) mmol/L BUN (7-18) mg/dL Creatinine (0.55-1.02) mg/dL Est GFR (CKD-EPI 2020) (mL/min/1.73m2) Glucose (74-106) mg/dL Calcium (8.5-10.1) mg/dL Magnesium (1.8-2.4) mg/dL Total Bilirubin (0.2-1.0) mg/dL AST (15-37) U/L ALT (14-59) U/L Alkaline Phosphatase (46-116) U/L Troponin I (<or=60) ng/L NT-Pro-B Natriuret Pep (<300) pg/mL Total Protein (6.4-8.2) g/dL Albumin (3.4-5.0) g/dL Lipase (16-77) U/L Procalcitonin ng/mL Salicylates (<2.8) mg/dL < 2.8 Acetaminophen (10-30) ug/mL < 2 Ethyl Alcohol (<10) mg/dL COVID-19 Source SARS-CoV-2 (PCR) (Negative) Influenza Type A (PCR) (Negative) Influenza Type B (PCR) (Negative) RSV (PCR) (Negative) ECG Data Attestation: I personally reviewed and interpreted this ECG (s) as follows: Interpretation: rate of 143, sinus, normal axis, normal intervals, no stemi. HPI General Mode of arrival: EMS . Date/Time Provider Initiated Documentation: 08/12/22 13:01 . Limitations to Documentation: no limitations . Information obtained by: patient . HPI Narrative: Patient is a 62-year-old female with a history of type 2 diabetes, neuroleptic induced parkinsonism, alcohol abuse, esophagitis, anxiety, depression who is 3 days status post percutaneous pinning of left hip fracture presents from home after being found by to be less responsive and hypoxic. EMS reports that oxygen saturation upon their arrival was in the 70s on room air and patient appeared drowsy. Her oxygen saturation increased to 90s on nonrebreather. She was noted to have coarse breath sounds. She had reported she took 1 dose of oxycodone last night but none this morning. EMS gave 2 doses of 0.4 mg Narcan intranasally and patient appeared to have an improvement in her mental status. Patient denies any oxycodone, alcohol or drug use today. Patient states she has been ambulating on her left hip. Related Data Home Medications Medication Instructions Recorded Confirmed insulin NPH isoph U-100 human 100 40 unit subcut DAILY 03/04/21 08/12/22 unit/mL (3 mL) subcutaneous pen (Humulin N NPH U-100 Insulin KwikPen) quetiapine 100 mg tablet 300 mg PO HS 04/22/21 08/12/22 divalproex 250 mg tablet,extended 500 mg PO DAILY 05/16/21 08/12/22 release 24 hr (Depakote ER) divalproex 500 mg tablet,extended 1,000 mg PO DAILY 06/10/21 08/12/22 release 24 hr (Depakote ER) insulin aspart U-100 100 unit/mL 5 unit subcut TID 07/16/21 08/12/22 (3 mL) subcutaneous pen (Novolog FlexPen U-100 Insulin aspart) pantoprazole 40 mg tablet,delayed 40 mg PO BID #60 tabs 07/19/21 08/12/22 release (Protonix) melatonin 10 mg tablet 10 mg PO QHS 08/08/22 08/12/22 sucralfate 1 gram tablet 1 g PO QID 08/08/22 08/12/22 aspirin 81 mg tablet,delayed 81 mg PO BID 30 days #60 tabs 08/10/22 08/12/22 release (Adult Aspirin Regimen) folic acid 1 mg tablet 1 mg PO DAILY #0 tabs 08/10/22 ibuprofen 800 mg tablet 800 mg PO Q8H PRN #60 tabs 08/10/22 08/12/22 multivitamin (Multiple Vitamins 1 tab PO DAILY #30 tabs 08/10/22 08/12/22 tablet) oxycodone 5 mg tablet 5 mg PO Q6H PRN #30 tabs 08/10/22 08/12/22 polyethylene glycol 3350 17 gram 17 g PO BID #0 ea 08/10/22 08/12/22 oral powder packet thiamine mononitrate (vit B1) 100 100 mg PO QAM #0 tabs 08/10/22 08/12/22 mg tablet (Vitamin B-1 (mononitrate)) Previous Rx's Medication Instructions Recorded pantoprazole 40 mg tablet,delayed 40 mg PO BID #60 tabs 07/19/21 release (Protonix) aspirin 81 mg tablet,delayed 81 mg PO BID 30 days #60 tabs 08/10/22 release (Adult Aspirin Regimen) folic acid 1 mg tablet 1 mg PO DAILY #0 tabs 08/10/22 ibuprofen 800 mg tablet 800 mg PO Q8H PRN #60 tabs 08/10/22 multivitamin (Multiple Vitamins 1 tab PO DAILY #30 tabs 08/10/22 tablet) oxycodone 5 mg tablet 5 mg PO Q6H PRN #30 tabs 08/10/22 polyethylene glycol 3350 17 gram 17 g PO BID #0 ea 08/10/22 oral powder packet thiamine mononitrate (vit B1) 100 100 mg PO QAM #0 tabs 08/10/22 mg tablet (Vitamin B-1 (mononitrate)) Allergies Allergy/AdvReac Type Severity Reaction Status Date / Time metformin Allergy Unknown Unverified 08/08/22 10:11 meperidine AdvReac gi upset Unverified 08/08/22 10:11 General Stated Complaint: GenMedical ASHANTI: 4 Review of Systems Unobtainable due to mental status PFSH All Active Problems NSTEMI (non-ST elevated myocardial infarction) (Acute) Acute cardiogenic pulmonary edema (Acute) Discharge planning issues (Acute) DVT prophylaxis (Acute) Acute metabolic encephalopathy (Acute) Acute respiratory failure with hypoxia (Acute) Bilateral pneumonia (Acute) Status post hip surgery (Acute) Alcohol abuse (Chronic) Diabetes (Chronic) Farrell's esophagus (Chronic) Anemia (Chronic) Closed fracture of neck of left femur (Acute) s/p Percutaneous Screw Fixation 08/09/22 Hypokalemia (Acute) Constipation (Acute) Drug-induced parkinsonism (Acute) Neuroleptic induced parkinsonism (Acute) Tubular adenoma (Acute ~06/10/21) Hyperplastic colon polyp (Acute ~06/10/21) Farrell's 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 (Acute) Erosive esophagitis (Acute) Esophageal ulcer with bleeding (Acute) Chronic diarrhea (Acute) Black tarry stools (Acute) Leukocytosis (Acute) Pleural effusion (Acute) Ventral hernia (Acute) Depression (Chronic) Bipolar 1 disorder (Acute) Cholelithiasis (Chronic) Medical History Anxiety Chronic iron deficiency anemia Chronic pancreatitis due to acute alcohol intoxication Diabetes mellitus type 2 in obese ETOH abuse History of pilonidal cyst Poorly controlled diabetes mellitus Surgical History History of section History of colonoscopy with polypectomy (~06/10/21) History of esophagogastroduodenoscopy (EGD) (~06/10/21) History of hysterectomy History of tonsillectomy S/P laparoscopic procedure cyst removed from stomach per patient S/P surgical removal of pilonidal cyst Family History Father Hypertension Diabetes Heart disease Social History Smoking/Tobacco Use Status: Former Tobacco Use Quit Date: 10/01/21 Smoking risk assessment performed?: Yes Alcohol Intake: former Drug use: Never Substance use type: does not use Details: pt. 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 Exam Const General: cooperative, ill appearing chronically and lethargic Orientation: awake, oriented to person and oriented to place HENMT Head: normal to inspection Face and sinus: normal facial exam Mouth: mucous membranes dry Eyes General: appearance normal, both eyes and all related structures Pupils: PERRL EOM: EOM intact bilaterally Neck Neck: normal visual inspection and No submandibular swelling Lymphatic: no lymphadenopathy noted Chest Chest: normal inspection of the chest and no tenderness Resp Effort & Inspection: normal respiratory effort and able to speak in complete sentences Auscultation: clear to auscultation bilaterally Cardio Rate: tachycardic Rhythm: regular rhythm GI Inspection: normal to inspection Palpation: soft, not firm, not rigid and nontender Auscultation: hypoactive bowel sounds Back/Spine/Pelvis Thoracic/Lumbar Spine: thoracic and lumbar spine normal to inspection Skin General skin exam: no rashes or lesions noted Neuro General: patient alert, patient awake, oriented Patient Orientation: Person and Place, moves all extremities and patient confused (drowsy, difficulty following some commands) Speech: abnormal speech slurred Motor: muscle tone normal throughout Sensory Exam: no sensory deficits noted Extrem General: no calf tenderness bilaterally and no edema Upper/lower leg/hip images: 1. Steri-Strips in place over surgical site left lateral hip. Area appears clean, dry and intact without cellulitis, drainage or bleeding. Psych Appearance: grossly normal Mental Status: mental status grossly normal Speech and Movement: speech and movement normal Affect: normal affect Critical Care Time Critical Care Time Critical Care Time: Yes Total Critical Care Time: 90 Attestation: I spent 90 minutes of critical care time with this patient. This does not include time spent on separately reported billable procedures.
--- NOTE | 2022-08-12 12:45 | RT.EKG_ITS ---
APPROVED REPORT Exam: Resting ECG Reason for Exam: sob Patient Location: E HR:143 bpm ECG Measurements Heart Rate 143 AXIS IN 136 P 61 QRSd 75 QRS 80 QT 267 T -45 QTc 412 Conclusion Sinus tachycardia...rate> 99. Sinus. Normal axis. No STEMI. I have reviewed and interpreted ECG and agree with software generated interpretation.
[2022-08-12] MEDS: Naloxone 0.4 MG/ML VIAL ×3 (12:50→13:23)
--- NOTE | 2022-08-12 13:00 | DI.CT_ITS ---
Exam(s) CT CHEST PE CTA EXAM: CT CHEST PE CTA CLINICAL HISTORY: hypoxia, tachycardic, post-op. TECHNIQUE: Imaging Protocol: Axial CT angiography was performed with multi-slice acquisition and mu lti-planar reconstructions as well as axial, coronal and sagittal MIP reconstructions. CONTRAST MATERIAL: Intravenous: Omnipaque 350 Contrast volume:100 ml COMPARISON: CT CT CHEST LUNG CANCER SCREEN from 02/18/2022 CR,XR XR CHEST 1V IN DI DEPT from 08/08/2022 CR XR HIP LT COMPLETE AP PELVIS from 08/10/2022 CR XR PORTABLE CHEST AP from 08/12/2022 FINDINGS: Exam is limited by respiratory motion. Pulmonary Arteries: No evidence of filling defect to suggest pulmonary emboli. Tracheobronchial tree: Patent where visualized. Mediastinum and Lesli: No dominant adenopathy or fluid collection. Marked thickening of the esophagus from the upper 3rd through the GE junction. Probable hiatal hernia. Finding similar to previous. Pulmonary parenchyma: Severe bilateral alveolar infiltrates in both upper and lower lobes, greater in the lower lobes. Pleura: No effusion or pneumothorax. Heart: The heart is not dilated. No coronary artery calcifications are seen. Aorta: Thoracic aorta non-dilated. No aneurysm. No dissection. Upper abdomen: Cholelithiasis. Bones: Unremarkable for age. IMPRESSION: No evidence of pulmonary embolism. Severe bilateral pneumonia. Marked diffuse esophageal wall thickening. Findings could be inflammatory however malignancy not exc luded. Findings called to Latosha Messer emergency department provider. RADIATION DOSE DELIVERED: 372.39mGy.cm Total DLP DATA REPOSITORY: All CT scans at this facility are submitted to the National Radiology Data Registry (NRDR) Dose Index Registry (DIR) with the [employer] ([employer]). RADIATION OPTIMIZATION: All CT scans at this facility use at least one of these dose optimization te chniques: automated exposure control; mA and/or kV adjustment per patient size (includes targeted exa ms where dose is matched to clinical indication); or iterative reconstruction.
[2022-08-12] MEDS: Normal Saline 250 ML IV (13:16)
[2022-08-12] MEDS: methylPREDNISolone SUCC 125 MG VIAL IVP (13:16)
[2022-08-12] MEDS: Levalbuterol 1.25 MG/3 ML UPD VIAL UPD ×2 (13:16→13:33)
[2022-08-12 13:27] LABS: Abs Immature Grans 0.16 10^3/uL (0.0-0.06); Absolute Monocyte Count 0.52 10^3/uL (0.1-0.8); Basophils % 0.5; Eosinophils % 1.2; HGB 11.4 g/dL (11.2-15.7); Immature Grans % 1.1; Lymphocytes % 4.9; MCHC 29.2 % (32.0-36.0); MCV 69 fL (80-95); Monocytes % 3.4; Neutrophils % 88.9; RBC 5.69 10^6/uL (3.93-5.22); RDW-SD 66.3 fL; WBC 15.21 10^3/uL (4.4-10.8)
[2022-08-12 13:30] LABS: Lactate 3.8 MMOL/l (0.9-1.7)
--- NOTE | 2022-08-12 13:33 | DI.RAD_ITS ---
Exam(s) XR PORTABLE CHEST AP EXAM: XR PORTABLE CHEST AP CLINICAL HISTORY: sob, r/o acute disease TECHNIQUE: 2D digital imaging was performed. COMPARISON: CR,XR XR CHEST 1V IN DI DEPT from 08/08/2022 FINDINGS: LUNGS: Bilateral patchy infiltrates, right greater than left, greater in the lower lung howard. No p leural abnormality seen. HEART: Normal size. AORTA: Normal diameter. BONES: Unremarkable for age. Soft tissues: Unremarkable. IMPRESSION: Bilateral pneumonia. DATA REPOSITORY: RADIATION DOSE DELIVERED:
[2022-08-12 13:35] LABS: Absolute Basophil Count 0.08 10^3/uL (0.0-0.2); Absolute Eosinophil Count 0.18 10^3/uL (0.0-0.7); Absolute Lymphocyte Count 0.75 10^3/uL (1.2-3.4); Absolute Neutrophil Count 13.52 10^3/uL (1.2-6.7)
[2022-08-12 13:45] LABS: Anisocytosis 2+; Diff Comment Diff Reviewed; Platelet Count 254 10^3/uL (130-400)
[2022-08-12 13:50] LABS: BE -2 mmol/L (-2-3); FIO2L 4 L; HCO3 23 mmol/L (22-26); Site Left Radial; TCO2 24 mmol/L (23-27); pCO2 34 mmHg (35-45); pH 7.43 (7.35-7.45); pO2 68 mmHg (80-105); sO2 94 % (95-98)
[2022-08-12 13:58] LABS: ALT 13 U/L (14-59); AST 14 U/L (15-37); Albumin 2.2 g/dL (3.4-5.0); Alkaline Phosphatase 98 U/L (46-116); Anion Gap 8.9 mmol/L (3-11); BUN 10 mg/dL (7-18); Bilirubin, Total 0.4 mg/dL (0.2-1.0); CO2 27.1 mmol/L (21.0-32.0); CREATININE 1.1 mg/dL (0.55-1.02); Calcium 9.7 mg/dL (8.5-10.1); Chloride 103 mmol/L (98-107); Estimated GFR 56.81 (mL/min/1.73m2); Glucose 118 mg/dL (74-106); Lipase < 10 U/L (16-77); Magnesium 1.5 mg/dL (1.8-2.4); NT-proBNP 1041 pg/mL (<300); Potassium 4.1 mmol/L (3.5-5.1); Sodium 139 mmol/L (136-145); Total Protein 6.4 g/dL (6.4-8.2); Troponin I < 50 ng/L (<or=60)
[2022-08-12 13:59] LABS: ETHANOL BLOOD < 3.0 mg/dL (<10)
[2022-08-12] MEDS: PIPERACILLIN/TAZO 3.375 GM in Normal Saline 50 ML IVPB (14:00)
--- NOTE | 2022-08-12 14:12 | NUR.NOTE ---
Nursing Note: patient ready for visitors This RN tried locating of patient. Unable to locate in waiting room at this time.
[2022-08-12] MEDS: Normal Saline 500 ML IV (14:15)
[2022-08-12] MEDS: VANCOMYCIN/WATER (PEG) 1.25 GM/250 ML BAG IVPB (14:28)
[2022-08-12 14:36] LABS: Salicylate < 2.8 mg/dL (<2.8)
[2022-08-12 14:37] LABS: Acetaminophen < 2 ug/mL (10-30)
[2022-08-12 14:44] LABS: Procalcitonin 0.5 ng/mL
[2022-08-12 14:55] LABS: COVID-19 PCR Negative (Negative); Influenza A PCR Negative (Negative); Influenza B PCR Negative (Negative); RSV PCR Negative (Negative)
[2022-08-12 14:57] LABS: Source Nasopharynx
[2022-08-12] MEDS: AZITHROMYCIN 500 MG in Normal Saline 250 ML 250 MG IVPB (15:03)
[2022-08-12] MEDS: Normal Saline - Diluent 50 ML VIAL IJ (15:26)
[2022-08-12] MEDS: Omnipaque 350 MG/ML 100 ML BTL IJ (15:27)
[2022-08-12] MEDS: MAGNESIUM SULFATE 2 GM/50 ML BAG IVPB ×2 (15:55→19:13)
[2022-08-12] MEDS: Normal Saline Flush 10 ML SYR IVP ×4 (17:10→22:24)
[2022-08-12 17:14] LABS: Troponin I < 50 ng/L (<or=60)
[2022-08-12] MEDS: Albuterol/Ipratropium 3 ML UPD VIAL UPD (17:17)
--- NOTE | 2022-08-12 17:39 | W.PM.HP.N ---
Date of service: 08/12/22 Time of Service: 17:39 Assessment and Plan Assessment and plan (1) Acute respiratory failure with hypoxia: Status: Acute Assessment and plan: secondary to pneumonia; however, she has B lines throughout her lung exam. no pleural effusions. LV and RV appear to have normal function grossly. IVC is plethoric and does not have 50% or more inspiratory collapse suggesting high RA pressure. I have ordered one time dose of lasix to see if she diureses. She may have underlying PHTN or HFPEF. I will get formal echo in the a.m. No PE by CTA. Clinically is consistent w/ acute pneumonia (i.e. fever, elevated WBC, elevated procalcitonin, cough). Patient was given Zosyn and Vancomycin while in the ER. I am concerned for potential renal impairment w/ combo. therefore, I have changed to cefepime and vanco and added azithromycin. Sputum, MRSA screen, urine for legionella and strep antigens and sputum for mycoplasma have been ordered. Fluvid was negative in the ED. Aggressive pulm. toiletry w/ acapella, IS. Patient is full code per my discussion w/ . Critical care time spent interviewing and examining the patient, reviewing studies, discussing case with patient's nurse and consulting physicians was 60 minutes (2) Bilateral pneumonia: Status: Acute Assessment and plan: as above. (3) Acute metabolic encephalopathy: Status: Acute Assessment and plan: check ammonia level but doubt hepatic encephalopathy; more likely d/t hypoxemia, sepsis and possible alcohol withdrawal. She is not retaining CO2 as per her vbg. If she is not improving on her cognition as her sepsis is treated, then consider CT head or MRI. (4) Alcohol abuse: Status: Chronic Assessment and plan: I have put her on the alcohol withdrawal protocol w/ benzodiazepines. due to her depakote and the addition of azithromycin, phenobarbital is contraindicated d/t QTC prolongation. (5) Status post hip surgery: Status: Acute Assessment and plan: will put her on scheduled doses of acetaminophen 1000 mg tid; can use low dose oxycodone prn pain; her creatinine is 1.1 which is higher than her normal back in July of 2021 when she was 0.6. However she is about the same as her most recent admission. This level of renal dysfunction is concerning for regular use of NSAID's. (6) Diabetes mellitus type 2 in obese: Assessment and plan: hold oral agents. Treat w/ sliding scale insulin along w/ her NPH (7) Farrell's esophagus: Status: Chronic Assessment and plan: will treat w/ iv protonix, particularly while on iv corticosteroids. (8) Closed fracture of neck of left femur: Status: Acute Assessment and plan: once stable from respiratory standpoint, I will consult w/ P.T. to resume therapy (9) Neuroleptic induced parkinsonism: Status: Acute (10) DVT prophylaxis: Status: Acute Assessment and plan: enoxaparin SC (11) Discharge planning issues: Status: Acute History of Present Illness Narrative: 67-year-old female with history of drug-induced parkinsonism, type 2 diabetes mellitus, alcohol abuse, Farrell's esophagitis, bipolar disorder type I, previous alcohol withdrawal, chronic atrial flutter who was hospitalized at [facility] from 08/08/2022 or 323 after sustaining a mechanical fall and subsequent fracture of her left proximal femur subcapital valgus impaction, patient underwent screw fixation percutaneously to the left hip fracture performed by Dr. David Lynne on 08/09/2022. Patient subsequently discharged home 08/10/2022. It was noted during her hospitalization she did exhibit some mild swelling CIWA scale 4-6 received some oral Ativan. She was discharged home with prescriptions for thiamine folic acid ibuprofen multivitamin oxycodone as well as DVT prophylaxis with aspirin. She now presents emergency department after being found down at home acutely confused this morning poorly responsive and hypoxemic. According to she has not been abusing oxycodone she was sent home on. She was given a prescription for oxycodone 5 mg as every 6 hours. She was given a prescription for 30 tablets. reports her last dose was given last night prior to bedtime. He says she was acting normal last night with normal cognition. Not short of breath. This morning, he was unable to arouse her and he used his pulse oximeter and found her SPO2 to be 70%. EMS was called patient was given 2 doses of Narcan with subsequent improvement in her arousability However upon evaluation in the emergency department she was drowsy given additional dose of Narcan 0.4 mg did not response. Chest x-ray routine labs are obtained. Chest x-ray demonstrated bilateral alveolar infiltrates. Blood work showed white cell count of 15,000 and a low magnesium of 1.5, elevated lactate 3.8 and procalcitonin 0.5. Included nasal swab was negative. proBNP was elevated at 1041 with normal troponin levels. ABG demonstrated normal pH 7.43 with a normal PCO2 of 34 and PO2 of 68 secondary patient 94%. This was drawn on 4 L/min by nasal cannula. Blood cultures were obtained and patient was started empirically on vancomycin and Zosyn for pneumonia. Patient is being admitted to the intensive care unit for treatment of acute hypoxemic respiratory failure secondary to pneumonia and sepsis. She may also be going through acute alcohol withdrawal, however, her minimizes her alcohol use and she reportedly has not had any alcohol since discharge from the hospital. [facility] All Active Problems (Updated 08/12/22 @ 18:06 by Rory Sevilla MD) Discharge planning issues (Acute) DVT prophylaxis (Acute) Acute metabolic encephalopathy (Acute) Acute respiratory failure with hypoxia (Acute) Bilateral pneumonia (Acute) Status post hip surgery (Acute) Alcohol abuse (Chronic) Diabetes (Chronic) Farrell's esophagus (Chronic) Anemia (Chronic) Closed fracture of neck of left femur (Acute) Hypokalemia (Acute) Constipation (Acute) Drug-induced parkinsonism (Acute) Neuroleptic induced parkinsonism (Acute) Tubular adenoma (Acute ~06/10/21) Hyperplastic colon polyp (Acute ~06/10/21) Farrell's 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 (Acute) Erosive esophagitis (Acute) Esophageal ulcer with bleeding (Acute) Chronic diarrhea (Acute) Black tarry stools (Acute) Leukocytosis (Acute) Pleural effusion (Acute) Ventral hernia (Acute) Depression (Chronic) Bipolar 1 disorder (Acute) Cholelithiasis (Chronic) Medical History Anxiety Chronic iron deficiency anemia Chronic pancreatitis due to acute alcohol intoxication Diabetes mellitus type 2 in obese ETOH abuse History of pilonidal cyst Poorly controlled diabetes mellitus Surgical History History of section History of colonoscopy with polypectomy (~06/10/21) History of esophagogastroduodenoscopy (EGD) (~06/10/21) History of hysterectomy History of tonsillectomy S/P laparoscopic procedure cyst removed from stomach per patient S/P surgical removal of pilonidal cyst Family History Father Hypertension Diabetes Heart disease Social History Smoking/Tobacco Use Status: Former Tobacco Use Quit Date: 02/07/21 Smoking risk assessment performed?: Yes Alcohol Intake: former Drug use: Never Substance use type: does not use Details: pt. 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 Meds Allergies and Home Medications Allergies Allergy/AdvReac Type Severity Reaction Status Date / Time metformin Allergy Unknown Unverified 08/08/22 10:11 meperidine AdvReac gi upset Unverified 08/08/22 10:11 Home Medications Medication Instructions Recorded Confirmed Type insulin NPH isoph U-100 human 100 40 unit subcut DAILY 03/04/21 08/12/22 History unit/mL (3 mL) subcutaneous pen (Humulin N NPH U-100 Insulin KwikPen) quetiapine 100 mg tablet 300 mg PO HS 04/22/21 08/12/22 History divalproex 250 mg tablet,extended 500 mg PO DAILY 05/16/21 08/12/22 History release 24 hr (Depakote ER) divalproex 500 mg tablet,extended 1,000 mg PO DAILY 06/10/21 08/12/22 History release 24 hr (Depakote ER) insulin aspart U-100 100 unit/mL 5 unit subcut TID 07/16/21 08/12/22 History (3 mL) subcutaneous pen (Novolog FlexPen U-100 Insulin aspart) pantoprazole 40 mg tablet,delayed 40 mg PO BID #60 tabs 07/19/21 08/12/22 Rx release (Protonix) melatonin 10 mg tablet 10 mg PO QHS 08/08/22 08/12/22 History sucralfate 1 gram tablet 1 g PO QID 08/08/22 08/12/22 History aspirin 81 mg tablet,delayed 81 mg PO BID 30 days #60 tabs 08/10/22 08/12/22 Rx release (Adult Aspirin Regimen) folic acid 1 mg tablet 1 mg PO DAILY #0 tabs 08/10/22 Rx ibuprofen 800 mg tablet 800 mg PO Q8H PRN #60 tabs 08/10/22 08/12/22 Rx multivitamin (Multiple Vitamins 1 tab PO DAILY #30 tabs 08/10/22 08/12/22 Rx tablet) oxycodone 5 mg tablet 5 mg PO Q6H PRN #30 tabs 08/10/22 08/12/22 Rx polyethylene glycol 3350 17 gram 17 g PO BID #0 ea 08/10/22 08/12/22 Rx oral powder packet thiamine mononitrate (vit B1) 100 100 mg PO QAM #0 tabs 08/10/22 08/12/22 Rx mg tablet (Vitamin B-1 (mononitrate)) Exam Narrative Exam Narrative: Patient is restless, she knows that she is in [facility] but is confused about the month or the year, saying that it is 1998. She does not seem to understand why she was brought to the hospital. she keeps trying to climb out of bed HEENT: no exudates, normal facial symmetry, normal phonation, no dysarthric speech Neck supple, nontender; she has prominent JVD, normal carotid pulses but tachcardic Lungs: coarse diffuse rhonchi and rales and wheezes Heart: tachycardic (HR in the 110's to 120's sinus), no murmur or rub Abdomen: soft, nontender, nondistended Extremities: no peripheral edema or cyanosis; she is restless but moves all 4's well w/ no focal weakness Results Imaging Chest x-ray: report reviewed and image reviewed CT scan - chest: report reviewed and image reviewed EKG: image reviewed Labs 08/12/22 13:15 08/12/22 13:15 Labs: Laboratory Results - last 24 hr 08/12/22 08/12/22 08/12/22 13:15 13:15 13:15 WBC 15.21 H RBC 5.69 H Hgb 11.4 Hct 39.0 MCV 69 L MCH 20.0 L MCHC 29.2 L RDW 28.0 H Plt Count 254 MPV Immature Gran % 1.1 Neutrophils % 88.9 Lymphocytes % 4.9 Monocytes % 3.4 Eosinophils % 1.2 Basophils % 0.5 Nucleated RBC % 0.0 Absolute Neutrophils 13.52 H Absolute Lymphocytes 0.75 L Absolute Monocytes 0.52 Absolute Eosinophils 0.18 Absolute Basophils 0.08 RBC Morphology See Below Anisocytosis 2+ Sample Site ABG pH ABG pCO2 ABG pO2 ABG HCO3 ABG Total CO2 ABG O2 Saturation ABG Base Excess VBG Lactate FiO2 (liters per min) Sodium 139 Potassium 4.1 Chloride 103 Carbon Dioxide 27.1 Anion Gap 8.9 BUN 10 Creatinine 1.1 H Est GFR (CKD-EPI 2020) 56.81 Glucose 118 H Calcium 9.7 Magnesium 1.5 L Total Bilirubin 0.4 AST 14 L ALT 13 L Alkaline Phosphatase 98 Troponin I < 50 NT-Pro-B Natriuret Pep 1041 H Cancelled Total Protein 6.4 Albumin 2.2 L Lipase < 10 L Procalcitonin Salicylates Acetaminophen Ethyl Alcohol < 3.0 COVID-19 Source SARS-CoV-2 (PCR) Influenza Type A (PCR) Influenza Type B (PCR) RSV (PCR) 08/12/22 08/12/22 08/12/22 13:15 13:15 13:15 WBC RBC Hgb Hct MCV MCH MCHC RDW Plt Count MPV Immature Gran % Neutrophils % Lymphocytes % Monocytes % Eosinophils % Basophils % Nucleated RBC % Absolute Neutrophils Absolute Lymphocytes Absolute Monocytes Absolute Eosinophils Absolute Basophils RBC Morphology Anisocytosis Sample Site ABG pH ABG pCO2 ABG pO2 ABG HCO3 ABG Total CO2 ABG O2 Saturation ABG Base Excess VBG Lactate 3.8 H* FiO2 (liters per min) Sodium Potassium Chloride Carbon Dioxide Anion Gap BUN Creatinine Est GFR (CKD-EPI 2020) Glucose Calcium Magnesium Total Bilirubin AST ALT Alkaline Phosphatase Troponin I NT-Pro-B Natriuret Pep Total Protein Albumin Lipase Cancelled Procalcitonin Salicylates Acetaminophen Ethyl Alcohol Cancelled COVID-19 Source SARS-CoV-2 (PCR) Influenza Type A (PCR) Influenza Type B (PCR) RSV (PCR) 08/12/22 08/12/22 08/12/22 13:15 13:43 13:59 WBC RBC Hgb Hct MCV MCH MCHC RDW Plt Count MPV Immature Gran % Neutrophils % Lymphocytes % Monocytes % Eosinophils % Basophils % Nucleated RBC % Absolute Neutrophils Absolute Lymphocytes Absolute Monocytes Absolute Eosinophils Absolute Basophils RBC Morphology Anisocytosis Sample Site Left Radial ABG pH 7.43 ABG pCO2 34 L ABG pO2 68 L ABG HCO3 23 ABG Total CO2 24 ABG O2 Saturation 94 L ABG Base Excess -2 VBG Lactate FiO2 (liters per min) 4 Sodium Potassium Chloride Carbon Dioxide Anion Gap BUN Creatinine Est GFR (CKD-EPI 2020) Glucose Calcium Magnesium Total Bilirubin AST ALT Alkaline Phosphatase Troponin I NT-Pro-B Natriuret Pep Total Protein Albumin Lipase Procalcitonin 0.5 Salicylates Acetaminophen Ethyl Alcohol COVID-19 Source Nasopharynx SARS-CoV-2 (PCR) Negative Influenza Type A (PCR) Negative Influenza Type B (PCR) Negative RSV (PCR) Negative 08/12/22 08/12/22 14:08 16:42 WBC RBC Hgb Hct MCV MCH MCHC RDW Plt Count MPV Immature Gran % Neutrophils % Lymphocytes % Monocytes % Eosinophils % Basophils % Nucleated RBC % Absolute Neutrophils Absolute Lymphocytes Absolute Monocytes Absolute Eosinophils Absolute Basophils RBC Morphology Anisocytosis Sample Site ABG pH ABG pCO2 ABG pO2 ABG HCO3 ABG Total CO2 ABG O2 Saturation ABG Base Excess VBG Lactate FiO2 (liters per min) Sodium Potassium Chloride Carbon Dioxide Anion Gap BUN Creatinine Est GFR (CKD-EPI 2020) Glucose Calcium Magnesium Total Bilirubin AST ALT Alkaline Phosphatase Troponin I < 50 NT-Pro-B Natriuret Pep Total Protein Albumin Lipase Procalcitonin Salicylates < 2.8 Acetaminophen < 2 Ethyl Alcohol COVID-19 Source SARS-CoV-2 (PCR) Influenza Type A (PCR) Influenza Type B (PCR) RSV (PCR) Last Vital Signs Temp 36.5 C 08/12/22 12:42 Pulse 122 H 08/12/22 17:17 Resp 24 08/12/22 17:17 BP 105/66 08/12/22 15:46 Pulse Ox 91 L 08/12/22 17:17 PAWSS Have you Been Recently Intoxicated or Drunk Within the Last 30 days?: No Have you Ever Experienced Previous Episodes of Alcohol Withdrawal?: No Have you ever Experienced Withdrawal Seizures?: No Have you ever Experienced Delirium Tremens(DT)s?: No Have you ever undergone Alcohol Rehabilitation Treatment (i.e, inpt ot outpatient treatment programs)?: No Have you ever Experienced Blackouts?: No Have you ever Combined Alcohol with other Downers within the last 90 days?: No Have you ever Combined Alcohol with any other Substance of Abuse during the last 90 days?: No Result: 0 Time Spent Time spent with Patient: 55-74 minutes Time was spent: preparing to see the patient(eg.review tests), obtaining and/or reviewing separately otained hiistory, ordering medications,tests, procedures, referring, communicating with other health clinical care manager, indepentently interpreting results, counseling the patient () and care coordination
[2022-08-12 17:50] LABS: Lab Add On Test DONE
[2022-08-12] MEDS: LORazepam 2 MG/ML VIAL 1 MG IVP (17:56)
[2022-08-12 18:15] LABS: Lactate 2.8 mmol/L (0.6-1.4)
[2022-08-12 18:27] LABS: Ammonia 22 umol/L (11-32)
[2022-08-12 18:38] LABS: Bilirubin Negative (Negative); Blood Trace-intact (Negative); Clarity Clear (Clear); Glucose Negative (Negative); Ketones Negative (Negative); Leukocyte Esterase Negative (Negative); Nitrite Negative (Negative); Urobilinogen 0.2 mg/dL (Up to 0.2); pH 5.5 (5-8)
[2022-08-12] MEDS: Furosemide 20 MG/2 ML VIAL IVP (18:40)
[2022-08-12] MEDS: Enoxaparin 40 MG/0.4 ML SYR SC (18:40)
[2022-08-12 18:41] LABS: Bacteria Negative HPF (Negative); C & S Indicated? No; Casts Negative LPF (Negative); Crystals Negative HPF (Negative); Epithelial Cells Rare HPF (Negative); Mucus Negative (Negative); RBC 0-2 HPF (0-2); WBC 0-2 HPF (0-5)
[2022-08-12] MEDS: Pantoprazole 40 MG VIAL IVP (18:48)
[2022-08-12] MEDS: Insulin Aspart 300 UNITS/3 ML PEN SC (18:51)
[2022-08-12] MEDS: CEFEPIME 2 GM in Normal Saline 100 ML IVPB (19:03)
[2022-08-12 19:07] LABS: *AMPHETAMINES SCREEN URINE Negative (Negative); *BARBITURATES SCREEN URINE Negative (Negative); *BENZODIAZEPINES SCREEN URINE Negative (Negative); Cannabinoids THC Negative (Negative); Cocaine Screen,Urine Negative (Negative); METHADONE URINE SCREEN Negative (Negative); OPIATES URINE SCREEN Negative (Negative)
[2022-08-12 19:08] LABS: Tricyclic Antidepressants Positive (Negative)
[2022-08-12 19:34] LABS: Lab Add On Test DONE
[2022-08-12 19:47] LABS: VALPROIC ACID 50.4 ug/mL
[2022-08-12] MEDS: Aspirin 300 MG SUPP PR (21:09)
[2022-08-12 21:35] LABS: Troponin I < 50 ng/L (<or=60)
[2022-08-12] MEDS: LORazepam 2 MG/ML VIAL IVP (21:57)
[2022-08-12] MEDS: Insulin NPH-Human 300 UNITS/3 ML PEN 40 UNIT SC (22:07)
[2022-08-12] MEDS: methylPREDNISolone SUCC 40 MG VIAL IVP (22:24)
[2022-08-13] VITALS (65 sets, daily range): BP systolic 76–169; BP diastolic 44–120; PULSE 86–126; RESP 8–32; TEMP 36.3–37.6; O2SAT 84–100
[2022-08-13] MEDS: ACETAMINOPHEN 1,000 MG/100 ML BTL 400 MG IVPB ×3 (00:24→23:19)
[2022-08-13] MEDS: Insulin Aspart 300 UNITS/3 ML PEN SC (00:27)
[2022-08-13] MEDS: LORazepam 1 MG TAB PO/SL (01:09)
[2022-08-13] MEDS: LORazepam 2 MG/ML VIAL IVP (02:18)
[2022-08-13] MEDS: VANCOMYCIN/WATER (PEG) 750 MG/150 ML BAG 150 MG IVPB ×2 (02:54→14:50)
[2022-08-13 03:17] LABS: BE (Venous) 1 mmol/L (-2-3); HCO3 (Venous) 24 mmol/L (23-28); O2 Sat (Venous) 100 %; TCO2 (Venous) 25 mmol/L (24-29); pCO2 (Venous) 29 mmHg (41-51); pH (Venous) 7.52 (7.31-7.41); pO2 (Venous) 149 mmHg
[2022-08-13] MEDS: OLANZapine 10 MG VIAL 2.5 MG IM (03:26)
[2022-08-13] MEDS: Water,Injection,Sterile 10 ML VIAL ×2 (03:28→12:40)
[2022-08-13] MEDS: methylPREDNISolone SUCC 40 MG VIAL IVP ×3 (05:40→21:32)
[2022-08-13] MEDS: Pantoprazole 40 MG VIAL IVP ×2 (05:41→17:19)
[2022-08-13] MEDS: CEFEPIME 2 GM in Normal Saline 100 ML IVPB ×2 (05:42→17:19)
[2022-08-13] MEDS: Normal Saline Flush 10 ML SYR IVP ×3 (05:44→17:19)
[2022-08-13] MEDS: Dextrose 50%-Water 25 GM/50 ML SYR IVP ×2 (06:53→11:51)
[2022-08-13] MEDS: Albuterol/Ipratropium 3 ML UPD VIAL UPD ×2 (08:06→15:00)
[2022-08-13 08:58] LABS: BE (Venous) 2 mmol/L (-2-3); HCO3 (Venous) 26 mmol/L (23-28); O2 Sat (Venous) 77 %; TCO2 (Venous) 24 mmol/L (24-29); pCO2 (Venous) 38 mmHg (41-51); pH (Venous) 7.44 (7.31-7.41); pO2 (Venous) 42 mmHg
[2022-08-13 09:00] LABS: Lactate 1.5 mmol/L (0.6-1.4)
[2022-08-13 09:01] LABS: HCT 33.5 % (36.0-46.0); HGB 10.3 g/dL (11.2-15.7); MCH 20.3 pg (27.0-33.0); MCHC 30.7 % (32.0-36.0); MCV 66 fL (80-95); Platelet Count 245 10^3/uL (130-400); RBC 5.07 10^6/uL (3.93-5.22); RDW 28.9 % (11.7-14.6); RDW-SD 64.1 fL; WBC 19.84 10^3/uL (4.4-10.8)
--- NOTE | 2022-08-13 09:10 | PDOC.CMIN ---
- If Service Date Differs Date of service: 08/13/22 Time of Service: 09:10 Care Management Initial Assess REASON FOR HOSPITALIZATION:: Bilateral Pneumonia; Acute hypoxic respiratory failure PAST MEDICAL HISTORY/PAST SURGICAL HISTORY:: Medical History . Anxiety. Chronic iron deficiency anemia. Chronic pancreatitis due to acute alcohol intoxication. Diabetes mellitus type 2 in obese. ETOH abuse. History of pilonidal cyst. Poorly controlled diabetes mellitus. Surgical History . History of section. History of colonoscopy with polypectomy (~06/10/21). History of esophagogastroduodenoscopy (EGD) (~06/10/21). History of hysterectomy. History of tonsillectomy. S/P laparoscopic procedure. cyst removed from stomach per patient. S/P surgical removal of pilonidal cyst
[2022-08-13 09:16] LABS: Magnesium 2.6 mg/dL (1.8-2.4)
[2022-08-13 09:20] LABS: Absolute Neutrophil Count 18.85 10^3/uL (1.2-6.7); Anisocytosis 2+; Bands % 11; Diff Comment Manual Differential; Hypochromasia 1+; Microcytosis 2+
[2022-08-13 09:21] LABS: ALT 13 U/L (14-59); AST 17 U/L (15-37); Albumin 1.9 g/dL (3.4-5.0); Alkaline Phosphatase 89 U/L (46-116); Anion Gap 9.6 mmol/L (3-11); BUN 21 mg/dL (7-18); Bilirubin, Total 0.4 mg/dL (0.2-1.0); CO2 26.4 mmol/L (21.0-32.0); CREATININE 1.1 mg/dL (0.55-1.02); Calcium 9.3 mg/dL (8.5-10.1); Chloride 107 mmol/L (98-107); Estimated GFR 56.81 (mL/min/1.73m2); Glucose 53 mg/dL (74-106); Potassium 3.4 mmol/L (3.5-5.1); Sodium 143 mmol/L (136-145)
--- NOTE | 2022-08-13 10:21 | INITIAL_ITS ---
- If Service Date Differs Date of service: 08/13/22 Time of Service: 10:21 Care Management Initial Assess REASON FOR HOSPITALIZATION:: acute respiratory failure PAST MEDICAL HISTORY/PAST SURGICAL HISTORY:: All Active Problems (Updated 08/12/22 @ 18:06 by Rory Sevilla MD). Discharge planning issues (Acute). DVT prophylaxis (Acute). Acute metabolic encephalopathy (Acute). Acute respiratory failure with hypoxia (Acute). Bilateral pneumonia (Acute). Status post hip surgery (Acute). Alcohol abuse (Chronic). Diabetes (Chronic). Farrell's esophagus (Chronic). Anemia (Chronic). Closed fracture of neck of left femur (Acute). Hypokalemia (Acute). Constipation (Acute). Drug-induced parkinsonism (Acute). Neuroleptic induced parkinsonism (Acute). Tubular adenoma (Acute ~06/10/21). Hyperplastic colon polyp (Acute ~06/10/21). Farrell's 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 (Acute). Erosive esophagitis (Acute). Esophageal ulcer with bleeding (Acute). Chronic diarrhea (Acute). Black tarry stools (Acute). Leukocytosis (Acute). Pleural effusion (Acute). Ventral hernia (Acute). Depression (Chronic). Bipolar 1 disorder (Acute). Cholelithiasis (Chronic). Medical History . Anxiety. Chronic iron deficiency anemia. Chronic pancreatitis due to acute alcohol intoxication. Diabetes mellitus type 2 in obese. ETOH abuse. History of pilonidal cyst. Poorly controlled diabetes gifty litus. Surgical History . History of section. History of colonoscopy with polypectomy (~06/10/21). History of esophagogastroduodenoscopy (EGD) (~06/10/21). History of hysterectomy. History of tonsillectomy. S/P laparoscopic procedure. cyst removed from stomach per patient. S/P surgical removal of pilonidal cyst PREVIOUS FUNCTIONAL STATUS/SOCIAL/FAMILY SUPPORTS:: Jennifer lives in [facility] with her Campos. 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 She and her have two adult sons, one of whom lives locally and is supportive of the couple. Jennifer is independent with her ADLs at baseline. CURRENT FUNCTIONAL STATUS:: Jennifer was lying in bed in the ICU, being closely monitored, when CM went to meet with her. She was not coherent and was unable to engage in conversation. Jennifer is tachycardic and her blood pressures are a bit low but she remains afebrile. CM will follow. ADVANCE DIRECTIVES:: none on file Has patient been provided with info about the portal/API?: Yes Did the patient sign up for the portal?: No CODE STATUS:: Full Code INSURANCE COVERAGE / FINANCIAL ISSUES:: Medicaid CURRENT HOME/COMMUNITY SERVICES/EQUIPMENT:: HH PT. patient has a walker PRIMARY CARE PHYSICIAN:: Ana Gillespie POTENTIAL DISCHARGE NEEDS:: follow up with PCP and plan of care PATIENT/FAMILY EDUCATION NEEDS:: Review of discharge instructions, limitations, activity, follow up plan, discuss Ask Me Three TRANSPORTATION:: via private vehicle with family PLAN:: Jennifer remains in the ICU and is not coherent or able to engage in conversation. Investigative studies continue. Her disposition is uncertain at this time. CM will continue to support Jennifer and assess for discharge planning concerns. Readmission - Within the Past 30 Days Yes or No: Y - Date of First Admission Date of 1st Admission: 08/08/22 - Date of this Admission Date of Admission: 08/12/22 This admission was: Through ED
--- NOTE | 2022-08-13 10:31 | W.PM.PROGNOT ---
Date of Service Date of service: 08/13/22 Time of Service: 10:31 Assessment and Plan Assessment and plan (1) Acute respiratory failure with hypoxia: Status: Acute Assessment and plan: pneumonia; can not exclude aspiration pneumonia however the patter on her radiologic imaging suggests otherwise. Will keep her NPO until she is more alert today; may need IMPLEMENTATION DIRECTOR evaluation. continue w/ cefepime, azithromycin and vancomycin but will dc vanco if MRSA screen is negative. continue scheduled doses of DuoNeb q4hr while awake, and prn xopenex; continue iv steroids. await cultures and urine legionella and strep antigen testing. Critical care time spent interviewing and examining the patient, reviewing studies, discussing case with patient's nurse and consulting physicians was 30 minutes (2) Bilateral pneumonia: Status: Acute Assessment and plan: as above. (3) Acute metabolic encephalopathy: Status: Acute Assessment and plan: patient is not hypercarbic and ammonia was normal. I still think that this is d/t sepsis; however, will get EEG today and CT of the brain. Hold sedatives/benzodiazepines (4) Alcohol abuse: Status: Chronic Assessment and plan: probably not acute alcohol withdrawal. per she had not been drinking alcohol since returning home on 08/10 and she was hospitalized from 08/08 to 08/10 therefore she is out of the 72 hour window for acute DT's. (5) Status post hip surgery: Status: Acute Assessment and plan: will use scheduled parenteral tylenol and prn ketorolac but will need to closely monitor renal fxn. will give gentle fluids hydration while she is NPO. I think yesterdays IVC findings are probably d/t pulm HTN. will check echo today (6) Diabetes mellitus type 2 in obese: Assessment and plan: hold oral agents. Treat w/ sliding scale insulin along w/ her NPH (7) Farrell's esophagus: Status: Chronic Assessment and plan: will treat w/ iv protonix, particularly while on iv corticosteroids. (8) Closed fracture of neck of left femur: Status: Acute Assessment and plan: once stable from respiratory standpoint, I will consult w/ P.T. to resume therapy (9) Neuroleptic induced parkinsonism: Status: Acute (10) DVT prophylaxis: Status: Acute Assessment and plan: enoxaparin SC (11) Discharge planning issues: Status: Acute Subjective Subjective Interval history since last seen: Patient is rather sedated this morning. She has been getting lorazepam for presumed alcohol withdrawal; howver, I am now convinced that she is not withdrawing from alcohol but suffers from metabolic encephalopathy from sepsis from her pneumonia in setting of her BPD. She did not get her depakote at all yesterday and became quite unmanageable yesterday until she was given zyprexa (chosen last night as she was unable or deemed unsafe to give her Seroquel. At this point I will dc her lorazepam and CIWA protocol. She seems to be arouseable enough that she can protect her airway and therefore I will allow the ativan to wear off rather than give her Romazicon. If her respiratory status becomes tenuous we can reverse her ativan w/ romazicon however, her last dose of ativan was 3 mg given at 01:30 a.m. I think she should be able to metabolize the lorazepam. If she becomes severely agitated/combative, then we could try another dose of Zyprexa IM. Exam Narrative Exam Narrative: Lethargic middle age female who opens her eyes to her name and to noxious stimuli but does not follow commands, she is lying on her left side; no stridor Lungs: scattered expiratory wheezing and rhonchi Heart: RRR, no longer tachycardic Abdomen: soft, nondistended Extremities: no edema Objective Last Vital Signs Temp 36.5 C 08/13/22 04:11 Pulse 101 H 08/13/22 08:06 Resp 20 08/13/22 08:06 BP 103/90 08/13/22 04:38 Pulse Ox 95 08/13/22 08:06 Laboratory Results - last 24 hr 08/12/22 08/12/22 08/12/22 13:15 13:15 13:15 WBC 15.21 H RBC 5.69 H Hgb 11.4 Hct 39.0 MCV 69 L MCH 20.0 L MCHC 29.2 L RDW 28.0 H Plt Count 254 MPV Immature Gran % 1.1 Neutrophils % 88.9 Band Neutrophils % Lymphocytes % 4.9 Monocytes % 3.4 Eosinophils % 1.2 Basophils % 0.5 Nucleated RBC % 0.0 Absolute Neutrophils 13.52 H Absolute Lymphocytes 0.75 L Absolute Monocytes 0.52 Absolute Eosinophils 0.18 Absolute Basophils 0.08 RBC Morphology See Below Hypochromasia Anisocytosis 2+ Microcytosis Sample Site ABG pH ABG pCO2 ABG pO2 ABG HCO3 ABG Total CO2 ABG O2 Saturation ABG Base Excess VBG pH VBG pCO2 VBG pO2 VBG HCO3 VBG Total CO2 VBG O2 Saturation VBG Base Excess VBG Lactate FiO2 (liters per min) Sodium 139 Potassium 4.1 Chloride 103 Carbon Dioxide 27.1 Anion Gap 8.9 BUN 10 Creatinine 1.1 H Est GFR (CKD-EPI 2020) 56.81 Glucose 118 H Calcium 9.7 Magnesium 1.5 L Total Bilirubin 0.4 AST 14 L ALT 13 L Alkaline Phosphatase 98 Ammonia Troponin I < 50 NT-Pro-B Natriuret Pep 1041 H Cancelled Total Protein 6.4 Albumin 2.2 L Lipase < 10 L Procalcitonin Urine Color Urine Clarity Urine pH Ur Specific [place] Urine Protein Urine Ketones Urine Blood Urine Nitrite Urine Bilirubin Urine Urobilinogen Ur Leukocyte Esterase Urine RBC Urine WBC Ur Epithelial Cells Urine Crystals Urine Bacteria Urine Casts Urine Mucus Ur Culture Indicated? Urine Glucose Salicylates Urine Opiates Screen Urine Methadone Screen Acetaminophen Ur Barbiturates Screen Valproic Acid Ur Tricyclics Screen Ur Amphetamines Screen U Benzodiazepines Scrn Urine Cocaine Screen Ur THC Screen Ethyl Alcohol < 3.0 COVID-19 Source SARS-CoV-2 (PCR) Influenza Type A (PCR) Influenza Type B (PCR) RSV (PCR) Add-On Test Request 08/12/22 08/12/22 08/12/22 13:15 13:15 13:15 WBC RBC Hgb Hct MCV MCH MCHC RDW Plt Count MPV Immature Gran % Neutrophils % Band Neutrophils % Lymphocytes % Monocytes % Eosinophils % Basophils % Nucleated RBC % Absolute Neutrophils Absolute Lymphocytes Absolute Monocytes Absolute Eosinophils Absolute Basophils RBC Morphology Hypochromasia Anisocytosis Microcytosis Sample Site ABG pH ABG pCO2 ABG pO2 ABG HCO3 ABG Total CO2 ABG O2 Saturation ABG Base Excess VBG pH VBG pCO2 VBG pO2 VBG HCO3 VBG Total CO2 VBG O2 Saturation VBG Base Excess VBG Lactate 3.8 H* FiO2 (liters per min) Sodium Potassium Chloride Carbon Dioxide Anion Gap BUN Creatinine Est GFR (CKD-EPI 2020) Glucose Calcium Magnesium Total Bilirubin AST ALT Alkaline Phosphatase Ammonia Troponin I NT-Pro-B Natriuret Pep Total Protein Albumin Lipase Cancelled Procalcitonin Urine Color Urine Clarity Urine pH Ur Specific [place] Urine Protein Urine Ketones Urine Blood Urine Nitrite Urine Bilirubin Urine Urobilinogen Ur Leukocyte Esterase Urine RBC Urine WBC Ur Epithelial Cells Urine Crystals Urine Bacteria Urine Casts Urine Mucus Ur Culture Indicated? Urine Glucose Salicylates Urine Opiates Screen Urine Methadone Screen Acetaminophen Ur Barbiturates Screen Valproic Acid Ur Tricyclics Screen Ur Amphetamines Screen U Benzodiazepines Scrn Urine Cocaine Screen Ur THC Screen Ethyl Alcohol Cancelled COVID-19 Source SARS-CoV-2 (PCR) Influenza Type A (PCR) Influenza Type B (PCR) RSV (PCR) Add-On Test Request 08/12/22 08/12/22 08/12/22 13:15 13:43 13:59 WBC RBC Hgb Hct MCV MCH MCHC RDW Plt Count MPV Immature Gran % Neutrophils % Band Neutrophils % Lymphocytes % Monocytes % Eosinophils % Basophils % Nucleated RBC % Absolute Neutrophils Absolute Lymphocytes Absolute Monocytes Absolute Eosinophils Absolute Basophils RBC Morphology Hypochromasia Anisocytosis Microcytosis Sample Site Left Radial ABG pH 7.43 ABG pCO2 34 L ABG pO2 68 L ABG HCO3 23 ABG Total CO2 24 ABG O2 Saturation 94 L ABG Base Excess -2 VBG pH VBG pCO2 VBG pO2 VBG HCO3 VBG Total CO2 VBG O2 Saturation VBG Base Excess VBG Lactate FiO2 (liters per min) 4 Sodium Potassium Chloride Carbon Dioxide Anion Gap BUN Creatinine Est GFR (CKD-EPI 2020) Glucose Calcium Magnesium Total Bilirubin AST ALT Alkaline Phosphatase Ammonia Troponin I NT-Pro-B Natriuret Pep Total Protein Albumin Lipase Procalcitonin 0.5 Urine Color Urine Clarity Urine pH Ur Specific [place] Urine Protein Urine Ketones Urine Blood Urine Nitrite Urine Bilirubin Urine Urobilinogen Ur Leukocyte Esterase Urine RBC Urine WBC Ur Epithelial Cells Urine Crystals Urine Bacteria Urine Casts Urine Mucus Ur Culture Indicated? Urine Glucose Salicylates Urine Opiates Screen Urine Methadone Screen Acetaminophen Ur Barbiturates Screen Valproic Acid Ur Tricyclics Screen Ur Amphetamines Screen U Benzodiazepines Scrn Urine Cocaine Screen Ur THC Screen Ethyl Alcohol COVID-19 Source Nasopharynx SARS-CoV-2 (PCR) Negative Influenza Type A (PCR) Negative Influenza Type B (PCR) Negative RSV (PCR) Negative Add-On Test Request 08/12/22 08/12/22 08/12/22 14:08 16:42 17:37 WBC RBC Hgb Hct MCV MCH MCHC RDW Plt Count MPV Immature Gran % Neutrophils % Band Neutrophils % Lymphocytes % Monocytes % Eosinophils % Basophils % Nucleated RBC % Absolute Neutrophils Absolute Lymphocytes Absolute Monocytes Absolute Eosinophils Absolute Basophils RBC Morphology Hypochromasia Anisocytosis Microcytosis Sample Site ABG pH ABG pCO2 ABG pO2 ABG HCO3 ABG Total CO2 ABG O2 Saturation ABG Base Excess VBG pH VBG pCO2 VBG pO2 VBG HCO3 VBG Total CO2 VBG O2 Saturation VBG Base Excess VBG Lactate FiO2 (liters per min) Sodium Potassium Chloride Carbon Dioxide Anion Gap BUN Creatinine Est GFR (CKD-EPI 2020) Glucose Calcium Magnesium Total Bilirubin AST ALT Alkaline Phosphatase Ammonia Troponin I < 50 NT-Pro-B Natriuret Pep Total Protein Albumin Lipase Procalcitonin Urine Color Urine Clarity Urine pH Ur Specific [place] Urine Protein Urine Ketones Urine Blood Urine Nitrite Urine Bilirubin Urine Urobilinogen Ur Leukocyte Esterase Urine RBC Urine WBC Ur Epithelial Cells Urine Crystals Urine Bacteria Urine Casts Urine Mucus Ur Culture Indicated? Urine Glucose Salicylates < 2.8 Urine Opiates Screen Urine Methadone Screen Acetaminophen < 2 Ur Barbiturates Screen Valproic Acid Ur Tricyclics Screen Ur Amphetamines Screen U Benzodiazepines Scrn Urine Cocaine Screen Ur THC Screen Ethyl Alcohol COVID-19 Source SARS-CoV-2 (PCR) Influenza Type A (PCR) Influenza Type B (PCR) RSV (PCR) Add-On Test Request DONE 08/12/22 08/12/22 08/12/22 18:00 18:00 18:00 WBC RBC Hgb Hct MCV MCH MCHC RDW Plt Count MPV Immature Gran % Neutrophils % Band Neutrophils % Lymphocytes % Monocytes % Eosinophils % Basophils % Nucleated RBC % Absolute Neutrophils Absolute Lymphocytes Absolute Monocytes Absolute Eosinophils Absolute Basophils RBC Morphology Hypochromasia Anisocytosis Microcytosis Sample Site ABG pH ABG pCO2 ABG pO2 ABG HCO3 ABG Total CO2 ABG O2 Saturation ABG Base Excess VBG pH VBG pCO2 VBG pO2 VBG HCO3 VBG Total CO2 VBG O2 Saturation VBG Base Excess VBG Lactate 2.8 H* FiO2 (liters per min) Sodium Potassium Chloride Carbon Dioxide Anion Gap BUN Creatinine Est GFR (CKD-EPI 2020) Glucose Calcium Magnesium Total Bilirubin AST ALT Alkaline Phosphatase Ammonia 22 Troponin I NT-Pro-B Natriuret Pep Total Protein Albumin Lipase Procalcitonin Urine Color Urine Clarity Urine pH Ur Specific [place] Urine Protein Urine Ketones Urine Blood Urine Nitrite Urine Bilirubin Urine Urobilinogen Ur Leukocyte Esterase Urine RBC Urine WBC Ur Epithelial Cells Urine Crystals Urine Bacteria Urine Casts Urine Mucus Ur Culture Indicated? Urine Glucose Salicylates Urine Opiates Screen Urine Methadone Screen Acetaminophen Ur Barbiturates Screen Valproic Acid 50.4 Ur Tricyclics Screen Ur Amphetamines Screen U Benzodiazepines Scrn Urine Cocaine Screen Ur THC Screen Ethyl Alcohol COVID-19 Source SARS-CoV-2 (PCR) Influenza Type A (PCR) Influenza Type B (PCR) RSV (PCR) Add-On Test Request 08/12/22 08/12/22 08/12/22 18:12 18:12 18:17 WBC RBC Hgb Hct MCV MCH MCHC RDW Plt Count MPV Immature Gran % Neutrophils % Band Neutrophils % Lymphocytes % Monocytes % Eosinophils % Basophils % Nucleated RBC % Absolute Neutrophils Absolute Lymphocytes Absolute Monocytes Absolute Eosinophils Absolute Basophils RBC Morphology Hypochromasia Anisocytosis Microcytosis Sample Site ABG pH ABG pCO2 ABG pO2 ABG HCO3 ABG Total CO2 ABG O2 Saturation ABG Base Excess VBG pH VBG pCO2 VBG pO2 VBG HCO3 VBG Total CO2 VBG O2 Saturation VBG Base Excess VBG Lactate FiO2 (liters per min) Sodium Potassium Chloride Carbon Dioxide Anion Gap BUN Creatinine Est GFR (CKD-EPI 2020) Glucose Calcium Magnesium Total Bilirubin AST ALT Alkaline Phosphatase Ammonia Troponin I NT-Pro-B Natriuret Pep Total Protein Albumin Lipase Procalcitonin Urine Color Yellow Urine Clarity Clear Urine pH 5.5 Ur Specific [place] 1.010 Urine Protein Negative Urine Ketones Negative Urine Blood Trace-intact H Urine Nitrite Negative Urine Bilirubin Negative Urine Urobilinogen 0.2 Ur Leukocyte Esterase Negative Urine RBC 0-2 Urine WBC 0-2 Ur Epithelial Cells Rare Urine Crystals Negative Urine Bacteria Negative Urine Casts Negative Urine Mucus Negative Ur Culture Indicated? No Urine Glucose Negative Salicylates Urine Opiates Screen Negative Urine Methadone Screen Negative Acetaminophen Ur Barbiturates Screen Negative Valproic Acid Ur Tricyclics Screen Positive A Ur Amphetamines Screen Negative U Benzodiazepines Scrn Negative Urine Cocaine Screen Negative Ur THC Screen Negative Ethyl Alcohol COVID-19 Source SARS-CoV-2 (PCR) Influenza Type A (PCR) Influenza Type B (PCR) RSV (PCR) Add-On Test Request DONE 08/12/22 08/12/22 08/12/22 18:22 21:02 21:02 WBC RBC Hgb Hct MCV MCH MCHC RDW Plt Count MPV Immature Gran % Neutrophils % Band Neutrophils % Lymphocytes % Monocytes % Eosinophils % Basophils % Nucleated RBC % Absolute Neutrophils Absolute Lymphocytes Absolute Monocytes Absolute Eosinophils Absolute Basophils RBC Morphology Hypochromasia Anisocytosis Microcytosis Sample Site ABG pH ABG pCO2 ABG pO2 ABG HCO3 ABG Total CO2 ABG O2 Saturation ABG Base Excess VBG pH VBG pCO2 VBG pO2 VBG HCO3 VBG Total CO2 VBG O2 Saturation VBG Base Excess VBG Lactate 2.0 H FiO2 (liters per min) Sodium Potassium Chloride Carbon Dioxide Anion Gap BUN Creatinine Est GFR (CKD-EPI 2020) Glucose Calcium Magnesium Total Bilirubin AST ALT Alkaline Phosphatase Ammonia Troponin I < 50 NT-Pro-B Natriuret Pep Total Protein Albumin Lipase Procalcitonin Urine Color Urine Clarity Urine pH Ur Specific [place] Urine Protein Urine Ketones Urine Blood Urine Nitrite Urine Bilirubin Urine Urobilinogen Ur Leukocyte Esterase Urine RBC Urine WBC Ur Epithelial Cells Urine Crystals Urine Bacteria Urine Casts Urine Mucus Ur Culture Indicated? Urine Glucose Salicylates Urine Opiates Screen Cancelled Urine Methadone Screen Cancelled Acetaminophen Ur Barbiturates Screen Cancelled Valproic Acid Ur Tricyclics Screen Cancelled Ur Amphetamines Screen Cancelled U Benzodiazepines Scrn Cancelled Urine Cocaine Screen Cancelled Ur THC Screen Cancelled Ethyl Alcohol COVID-19 Source SARS-CoV-2 (PCR) Influenza Type A (PCR) Influenza Type B (PCR) RSV (PCR) Add-On Test Request 08/13/22 08/13/22 08/13/22 03:00 08:50 08:50 WBC 19.84 H RBC 5.07 Hgb 10.3 L Hct 33.5 L MCV 66 L MCH 20.3 L MCHC 30.7 L RDW 28.9 H Plt Count 245 MPV Immature Gran % 0.0 Neutrophils % 84.0 Band Neutrophils % 11 Lymphocytes % 3.0 Monocytes % 2.0 Eosinophils % 0.0 Basophils % 0.0 Nucleated RBC % 0.0 Absolute Neutrophils 18.85 H Absolute Lymphocytes 0.60 L Absolute Monocytes 0.40 Absolute Eosinophils 0.00 Absolute Basophils 0.00 RBC Morphology See Below Hypochromasia 1+ Anisocytosis 2+ Microcytosis 2+ Sample Site ABG pH ABG pCO2 ABG pO2 ABG HCO3 ABG Total CO2 ABG O2 Saturation ABG Base Excess VBG pH 7.52 H VBG pCO2 29 L VBG pO2 149 VBG HCO3 24 VBG Total CO2 25 VBG O2 Saturation 100 VBG Base Excess 1 VBG Lactate FiO2 (liters per min) Sodium 143 Potassium 3.4 L Chloride 107 Carbon Dioxide 26.4 Anion Gap 9.6 BUN 21 H Creatinine 1.1 H Est GFR (CKD-EPI 2020) 56.81 Glucose 53 L Calcium 9.3 Magnesium Total Bilirubin 0.4 AST 17 ALT 13 L Alkaline Phosphatase 89 Ammonia Troponin I NT-Pro-B Natriuret Pep Total Protein 6.0 L Albumin 1.9 L Lipase Procalcitonin Urine Color Urine Clarity Urine pH Ur Specific [place] Urine Protein Urine Ketones Urine Blood Urine Nitrite Urine Bilirubin Urine Urobilinogen Ur Leukocyte Esterase Urine RBC Urine WBC Ur Epithelial Cells Urine Crystals Urine Bacteria Urine Casts Urine Mucus Ur Culture Indicated? Urine Glucose Salicylates Urine Opiates Screen Urine Methadone Screen Acetaminophen Ur Barbiturates Screen Valproic Acid Ur Tricyclics Screen Ur Amphetamines Screen U Benzodiazepines Scrn Urine Cocaine Screen Ur THC Screen Ethyl Alcohol COVID-19 Source SARS-CoV-2 (PCR) Influenza Type A (PCR) Influenza Type B (PCR) RSV (PCR) Add-On Test Request 08/13/22 08/13/22 08/13/22 08:50 08:50 08:50 WBC RBC Hgb Hct MCV MCH MCHC RDW Plt Count MPV Immature Gran % Neutrophils % Band Neutrophils % Lymphocytes % Monocytes % Eosinophils % Basophils % Nucleated RBC % Absolute Neutrophils Absolute Lymphocytes Absolute Monocytes Absolute Eosinophils Absolute Basophils RBC Morphology Hypochromasia Anisocytosis Microcytosis Sample Site ABG pH ABG pCO2 ABG pO2 ABG HCO3 ABG Total CO2 ABG O2 Saturation ABG Base Excess VBG pH 7.44 H VBG pCO2 38 L VBG pO2 42 VBG HCO3 26 VBG Total CO2 24 VBG O2 Saturation 77 VBG Base Excess 2 VBG Lactate 1.5 H FiO2 (liters per min) Sodium Potassium Chloride Carbon Dioxide Anion Gap BUN Creatinine Est GFR (CKD-EPI 2020) Glucose Calcium Magnesium 2.6 H Total Bilirubin AST ALT Alkaline Phosphatase Ammonia Troponin I NT-Pro-B Natriuret Pep Total Protein Albumin Lipase Procalcitonin Urine Color Urine Clarity Urine pH Ur Specific [place] Urine Protein Urine Ketones Urine Blood Urine Nitrite Urine Bilirubin Urine Urobilinogen Ur Leukocyte Esterase Urine RBC Urine WBC Ur Epithelial Cells Urine Crystals Urine Bacteria Urine Casts Urine Mucus Ur Culture Indicated? Urine Glucose Salicylates Urine Opiates Screen Urine Methadone Screen Acetaminophen Ur Barbiturates Screen Valproic Acid Ur Tricyclics Screen Ur Amphetamines Screen U Benzodiazepines Scrn Urine Cocaine Screen Ur THC Screen Ethyl Alcohol COVID-19 Source SARS-CoV-2 (PCR) Influenza Type A (PCR) Influenza Type B (PCR) RSV (PCR) Add-On Test Request PAWSS Have you Been Recently Intoxicated or Drunk Within the Last 30 days?: No Have you Ever Experienced Previous Episodes of Alcohol Withdrawal?: No Have you ever Experienced Withdrawal Seizures?: No Have you ever Experienced Delirium Tremens(DT)s?: No Have you ever undergone Alcohol Rehabilitation Treatment (i.e, inpt ot outpatient treatment programs)?: No Have you ever Experienced Blackouts?: No Have you ever Combined Alcohol with other Downers within the last 90 days?: No Have you ever Combined Alcohol with any other Substance of Abuse during the last 90 days?: No Result: 0 Time Spent with Patient Time Spent with Patient: 25-34 minutes Time was spent: preparing to see the patient(eg.review tests), ordering medications,tests, procedures, referring, communicating with other health resident care technician (Nursing staff, Dr. Damon), indepentently interpreting results and care coordination
[2022-08-13] MEDS: AZITHROMYCIN 250 MG in Normal Saline 250 ML IVPB (12:13)
[2022-08-13] MEDS: DEXTROSE 10%-WATER 500 ML 100 ML IV (12:20)
[2022-08-13] MEDS: OLANZapine 10 MG VIAL 5 MG IM (12:39)
--- NOTE | 2022-08-13 13:30 | DI.CT_ITS ---
Exam(s) CT HEAD WO EXAM: CT HEAD WO CLINICAL HISTORY: encephalopathy. TECHNIQUE: Imaging Protocol: Axial computed tomography images with coronal and sagittal reformatted images were created and reviewed COMPARISON: CT CT HEAD WO from 03/03/2021 FINDINGS: There are no skull fractures. There is no fluid in the visualized paranasal sinuses. Hyperostosis fr ontalis interna again noted. There is no evidence of intracranial hemorrhage, mass effect, or shift of midline structures. There are no extra-axial fluid collections. The ventricles are not enlarged or shifted and there is no blo od within the ventricular system nor within the basal cisterns. IMPRESSION: No acute intracranial findings on this noninfused CT scan of the brain. Clinically indicated follow-up MRI with diffusion imaging can be performed for added sensitivity and specificity. RADIATION DOSE DELIVERED: 792.4mGy.cm Total DLP DATA REPOSITORY: All CT scans at this facility are submitted to the National Radiology Data Registry (NRDR) Dose Index Registry (DIR) with the [employer] ([employer]). RADIATION OPTIMIZATION: All CT scans at this facility use at least one of these dose optimization te chniques: automated exposure control; mA and/or kV adjustment per patient size (includes targeted exa ms where dose is matched to clinical indication); or iterative reconstruction.
[2022-08-13] MEDS: Enoxaparin 40 MG/0.4 ML SYR SC (17:19)
[2022-08-13] MEDS: DEXTROSE 5%-LACTATED RINGERS 1,000 ML 75 ML IV (20:32)
[2022-08-13 23:37] LABS: Legionella Ag Detection Urine Negative (Negative)
[2022-08-14] VITALS (107 sets, daily range): BP systolic 78–175; BP diastolic 27–143; PULSE 95–221; RESP 8–37; TEMP 36.5–37.3; O2SAT 80–99
--- NOTE | 2022-08-14 | DI.RAD_ITS ---
Exam(s) XR PORTABLE CHEST AP EXAM: XR PORTABLE CHEST AP CLINICAL HISTORY: vahe pneumonia, increased respiratory distress TECHNIQUE: 2D digital imaging was performed of the chest. One image was obtained. An AP view was ob tained. COMPARISON: CR XR PORTABLE CHEST AP from 08/12/2022 FINDINGS: MEDIASTINUM: Normal. HEART: Probably within normal limits in size given the AP projection and positioning of the patient. PULMONARY VASCULATURE: Normal. LUNGS: There has been worsening of the diffuse pulmonary infiltrates now involving both upper lobes. PLEURAL SPACE: No pleural effusion or pneumothorax. BONE:Within normal limits for the patient's age. OTHER FINDINGS:Normal. IMPRESSION: Worsening diffuse bilateral pneumonia. DATA REPOSITORY: RADIATION DOSE DELIVERED:
[2022-08-14 02:20] LABS: Vancomycin, Trough 23.8 ug/mL (10.0-20.0)
[2022-08-14] MEDS: Ketorolac 15 MG/ML VIAL IVP (04:05)
[2022-08-14] MEDS: methylPREDNISolone SUCC 40 MG VIAL IVP (05:22)
[2022-08-14] MEDS: Pantoprazole 40 MG VIAL IVP ×2 (05:22→17:40)
[2022-08-14] MEDS: Normal Saline Flush 10 ML SYR IVP ×6 (05:22→20:28)
[2022-08-14] MEDS: CEFEPIME 2 GM in Normal Saline 100 ML IVPB ×2 (05:30→19:38)
[2022-08-14] MEDS: Insulin Aspart 300 UNITS/3 ML PEN SC ×2 (05:38→12:28)
[2022-08-14 06:10] LABS: BE (Venous) -2 mmol/L (-2-3); HCO3 (Venous) 24 mmol/L (23-28); O2 Sat (Venous) 75 %; TCO2 (Venous) 22 mmol/L (24-29); pCO2 (Venous) 44 mmHg (41-51); pH (Venous) 7.34 (7.31-7.41); pO2 (Venous) 43 mmHg
[2022-08-14 06:15] LABS: HCT 39.1 % (36.0-46.0); HGB 11.7 g/dL (11.2-15.7); MCH 20.1 pg (27.0-33.0); MCHC 29.9 % (32.0-36.0); MCV 67 fL (80-95); RBC 5.81 10^6/uL (3.93-5.22); RDW 29.4 % (11.7-14.6); RDW-SD 66.7 fL
[2022-08-14 06:40] LABS: ALT 19 U/L (14-59); AST 27 U/L (15-37); Albumin 1.9 g/dL (3.4-5.0); Alkaline Phosphatase 111 U/L (46-116); Anion Gap 10.9 mmol/L (3-11); BUN 23 mg/dL (7-18); Bilirubin, Total 0.4 mg/dL (0.2-1.0); CO2 25.1 mmol/L (21.0-32.0); CREATININE 1.1 mg/dL (0.55-1.02); Calcium 9.4 mg/dL (8.5-10.1); Chloride 106 mmol/L (98-107); Estimated GFR 56.81 (mL/min/1.73m2); Glucose 129 mg/dL (74-106); Potassium 3.5 mmol/L (3.5-5.1); Sodium 142 mmol/L (136-145); Total Protein 6.4 g/dL (6.4-8.2)
[2022-08-14 06:50] LABS: C-Reactive Protein > 25.00 mg/dL (0.0-0.3)
[2022-08-14 06:59] LABS: Absolute Lymphocyte Count 0.71 10^3/uL (1.2-3.4); Absolute Monocyte Count 0.71 10^3/uL (0.1-0.8); Absolute Neutrophil Count 34.13 10^3/uL (1.2-6.7); Bands % 5
[2022-08-14 07:00] LABS: Anisocytosis 2+; Diff Comment Manual Differential; Hypochromasia 1+; Microcytosis 2+; WBC 35.55 10^3/uL (4.4-10.8)
[2022-08-14 07:01] LABS: Platelet Count 375 10^3/uL (130-400); Poikilocytes 2+
[2022-08-14 07:10] LABS: Procalcitonin 3.2 ng/mL
[2022-08-14 08:12] LABS: Lab Add On Test DONE
--- NOTE | 2022-08-14 08:18 | DI.VRAD_ITS ---
PROCEDURE INFORMATION: Exam: XR Chest Exam date and time: 08/14/2022 6:30 AM Age: 62 years old Clinical indication: Shortness of breath and other: Lucas pneumonia, increased respiratory distress TECHNIQUE: Imaging protocol: Radiologic exam of the chest. Views: 1 view. COMPARISON: CR XR PORTABLE CHEST AP 08/12/2022 1:07 PM FINDINGS: Lungs: Worsening diffuse bilateral airspace disease Pleural spaces: Unremarkable. No pleural effusion. No pneumothorax. Heart/Mediastinum: Cardiac silhouette unchanged Bones/joints: Unremarkable. Other findings: Patient is rotated on the exam IMPRESSION: Worsening diffuse bilateral pneumonia Dictated and Authenticated by: Chiquis Louis MD. Ordering:ANA CRISTINA Gerard MD
--- NOTE | 2022-08-14 08:26 | PGE_ITS ---
Date of Service Date of service: 08/14/22 Time of Service: 08:26 Assessment and Plan Assessment and plan (1) Acute respiratory failure with hypoxia: Status: Acute Assessment and plan: worsening hypoxemia associated w/ worsening bilateral diffuse alveolar infiltrates, suggestive of ARDS. will check echocardiogram to evaluate LV and RV function (ordered yesterday but not done). I have changed her solumedrol to hydrocortisone; currently on cefepime and azithromycin and vancomycin but vancomycin trough was high at 23.8 and her MRSA screen was negative; therefore, I have stopped her vancomycin. No sputum has been obtained yet. Urine for legionella Ag and Strep pneumoniae Ag was sent yesterday and is still pending at this time. Continue BIPAP; low threshold for intubation; I discussed the severity of her condition and the probability of intubation and mechanical ventilation witih her . He questioned whether [facility] would be contacted; I told him that our manager product marketing would be consulted but if she does require intubtation she will likely be transferred to tertiary care center such as [facility]. I will start her on low dose lasix to attempt to keep her in negative fluid balance by -1/2 liter per day. Critical care time spent interviewing and examining the patient, reviewing studies, discussing case with patient's nurse and consulting physicians was 60 minutes (2) Bilateral pneumonia: Status: Acute Assessment and plan: continue broad spectrum antibiotics. currently on cefepime and azithromycin. continue NIPPV; keep net negative fluid balance; hydrocortisone. CTA on admission did not show any evidence for PE but did demonstrate diffuse bilateral infiltrates. (3) Acute metabolic encephalopathy: Status: Acute Assessment and plan: likely secondary to sepsis superimposed on BPD. patient having EEG this morning. continue prn use of zyprexa for agitation. (4) Alcohol abuse: Status: Chronic Assessment and plan: per her she has not had a drink of alcohol in over a year and half. Initially her encephalopathy was thought to possibly be d/t withdrawal but this is hightly unlikley at this point given his accounts and the fact she was hospitalized from 08/08 to 08/10 without acute withdrawal and returned on 08/12. (5) Status post hip surgery: Status: Acute Assessment and plan: will use scheduled parenteral tylenol and prn ketorolac but will need to closely monitor renal fxn. will give gentle fluids hydration while she is NPO. I think yesterdays IVC findings are probably d/t pulm HTN. will check echo today (6) Diabetes mellitus type 2 in obese: Assessment and plan: hold oral agents. Treat w/ sliding scale insulin along w/ her NPH (7) Farrell's esophagus: Status: Chronic Assessment and plan: will treat w/ iv protonix, particularly while on iv corticosteroids. (8) Closed fracture of neck of left femur: Status: Acute Assessment and plan: once stable from respiratory standpoint, I will consult w/ P.T. to resume therapy (9) Neuroleptic induced parkinsonism: Status: Acute (10) DVT prophylaxis: Status: Acute Assessment and plan: enoxaparin SC (11) Discharge planning issues: Status: Acute Assessment and plan: patient remains full code. If she is intubated then she will likely be transferred to tertiary care center pending bed availability. I have asked diagnostic imaging to send her films to [facility] so I can discuss w/ pulm/CCM team, as we have no coverage this weekend. Subjective Subjective Interval history since last seen: Patient had worsening hypoxemia overnight. Repeat CXR demonstrates worsening diffuse bilateral alveolar infiltrates. patien was put on BIPAP overnight w/ improvement in her oxygenation. she remains confused but awakens easily and remains restless. Exam Narrative Exam Narrative: Middle age white female who is restless, pulling at lines, and her oxygen mask; patient does open her eyes to her name being called and seemed to recognize her . although she is restless, she does seem to follow simple commands (she will put her hands down when asked by RT tech who is applying her EEG leads) Neck: no overt JVD, supple, normal pulses Lungs: diffuse rales, no rhonchi Heart: tachycardia, regular, no murmur Abdomen: hypoactive bowel sounds, soft, nondistended Legs/feet: no cyanosis, adequate capillary refill, no edema, normal ROM and strength Arms/hands: normal ROM and strength, no edema Left hip wound is healing nicely; no induration or redness, wound is closed w/ no drainage Objective Last Vital Signs Temp 36.5 C 08/14/22 04:00 Pulse 127 H 08/14/22 07:48 Resp 24 08/14/22 07:48 BP 100/67 08/14/22 04:00 Pulse Ox 94 08/14/22 06:32 Laboratory Results - last 24 hr 08/13/22 08/13/22 08/13/22 08:50 08:50 08:50 WBC 19.84 H RBC 5.07 Hgb 10.3 L Hct 33.5 L MCV 66 L MCH 20.3 L MCHC 30.7 L RDW 28.9 H Plt Count 245 MPV Immature Gran % 0.0 Neutrophils % 84.0 Band Neutrophils % 11 Lymphocytes % 3.0 Monocytes % 2.0 Eosinophils % 0.0 Basophils % 0.0 Nucleated RBC % 0.0 Absolute Neutrophils 18.85 H Absolute Lymphocytes 0.60 L Absolute Monocytes 0.40 Absolute Eosinophils 0.00 Absolute Basophils 0.00 RBC Morphology See Below Hypochromasia 1+ Poikilocytosis Anisocytosis 2+ Microcytosis 2+ VBG pH 7.44 H VBG pCO2 38 L VBG pO2 42 VBG HCO3 26 VBG Total CO2 24 VBG O2 Saturation 77 VBG Base Excess 2 VBG Lactate Sodium 143 Potassium 3.4 L Chloride 107 Carbon Dioxide 26.4 Anion Gap 9.6 BUN 21 H Creatinine 1.1 H Est GFR (CKD-EPI 2020) 56.81 Glucose 53 L Calcium 9.3 Magnesium Total Bilirubin 0.4 AST 17 ALT 13 L Alkaline Phosphatase 89 C-Reactive Protein Total Protein 6.0 L Albumin 1.9 L Procalcitonin Vancomycin Trough Add-On Test Request 08/13/22 08/13/22 08/14/22 08:50 08:50 01:50 WBC RBC Hgb Hct MCV MCH MCHC RDW Plt Count MPV Immature Gran % Neutrophils % Band Neutrophils % Lymphocytes % Monocytes % Eosinophils % Basophils % Nucleated RBC % Absolute Neutrophils Absolute Lymphocytes Absolute Monocytes Absolute Eosinophils Absolute Basophils RBC Morphology Hypochromasia Poikilocytosis Anisocytosis Microcytosis VBG pH VBG pCO2 VBG pO2 VBG HCO3 VBG Total CO2 VBG O2 Saturation VBG Base Excess VBG Lactate 1.5 H Sodium Potassium Chloride Carbon Dioxide Anion Gap BUN Creatinine Est GFR (CKD-EPI 2020) Glucose Calcium Magnesium 2.6 H Total Bilirubin AST ALT Alkaline Phosphatase C-Reactive Protein Total Protein Albumin Procalcitonin Vancomycin Trough 23.8 H* Add-On Test Request 08/14/22 08/14/22 08/14/22 05:50 05:50 05:50 WBC 35.55 H* RBC 5.81 H Hgb 11.7 Hct 39.1 MCV 67 L MCH 20.1 L MCHC 29.9 L RDW 29.4 H Plt Count 375 D MPV Immature Gran % 0.0 Neutrophils % 91.0 Band Neutrophils % 5 Lymphocytes % 2.0 Monocytes % 2.0 Eosinophils % 0.0 Basophils % 0.0 Nucleated RBC % 0.0 Absolute Neutrophils 34.13 H Absolute Lymphocytes 0.71 L Absolute Monocytes 0.71 Absolute Eosinophils 0.00 Absolute Basophils 0.00 RBC Morphology See Below Hypochromasia 1+ Poikilocytosis 2+ Anisocytosis 2+ Microcytosis 2+ VBG pH VBG pCO2 VBG pO2 VBG HCO3 VBG Total CO2 VBG O2 Saturation VBG Base Excess VBG Lactate Sodium 142 Potassium 3.5 Chloride 106 Carbon Dioxide 25.1 Anion Gap 10.9 BUN 23 H Creatinine 1.1 H Est GFR (CKD-EPI 2020) 56.81 Glucose 129 H Calcium 9.4 Magnesium Total Bilirubin 0.4 AST 27 ALT 19 Alkaline Phosphatase 111 C-Reactive Protein > 25.00 H Total Protein 6.4 Albumin 1.9 L Procalcitonin 3.2 Vancomycin Trough Add-On Test Request 08/14/22 08/14/22 05:50 05:50 WBC RBC Hgb Hct MCV MCH MCHC RDW Plt Count MPV Immature Gran % Neutrophils % Band Neutrophils % Lymphocytes % Monocytes % Eosinophils % Basophils % Nucleated RBC % Absolute Neutrophils Absolute Lymphocytes Absolute Monocytes Absolute Eosinophils Absolute Basophils RBC Morphology Hypochromasia Poikilocytosis Anisocytosis Microcytosis VBG pH 7.34 VBG pCO2 44 VBG pO2 43 VBG HCO3 24 VBG Total CO2 22 L VBG O2 Saturation 75 VBG Base Excess -2 VBG Lactate Sodium Potassium Chloride Carbon Dioxide Anion Gap BUN Creatinine Est GFR (CKD-EPI 2020) Glucose Calcium Magnesium Total Bilirubin AST ALT Alkaline Phosphatase C-Reactive Protein Total Protein Albumin Procalcitonin Vancomycin Trough Add-On Test Request DONE PAWSS Have you Been Recently Intoxicated or Drunk Within the Last 30 days?: No Have you Ever Experienced Previous Episodes of Alcohol Withdrawal?: No Have you ever Experienced Withdrawal Seizures?: No Have you ever Experienced Delirium Tremens(DT)s?: No Have you ever undergone Alcohol Rehabilitation Treatment (i.e, inpt ot outpatient treatment programs)?: No Have you ever Experienced Blackouts?: No Have you ever Combined Alcohol with other Downers within the last 90 days?: No Have you ever Combined Alcohol with any other Substance of Abuse during the last 90 days?: No Result: 0 Time Spent with Patient Time Spent with Patient: >50 minutes Time was spent: preparing to see the patient(eg.review tests), ordering medications,tests, procedures, referring, communicating with other health medicare coordinator, indepentently interpreting results, counseling the patient () and care coordination
[2022-08-14] MEDS: Water,Injection,Sterile 10 ML VIAL ×2 (08:30→09:14)
[2022-08-14] MEDS: OLANZapine 10 MG VIAL 5 MG IM (08:30)
[2022-08-14] MEDS: ACETAMINOPHEN 1,000 MG/100 ML BTL 400 MG IVPB ×2 (08:52→16:49)
[2022-08-14] MEDS: Furosemide 20 MG/2 ML VIAL IVP (09:05)
[2022-08-14] MEDS: OLANZapine 10 MG VIAL 2.5 MG IM (09:14)
[2022-08-14] MEDS: Dexamethasone 10 MG/ML VIAL IVP (09:29)
--- NOTE | 2022-08-14 10:09 | PDOC.CMPRO ---
- If Service Date Differs Date of service: 08/14/22 Time of Service: 10:10 Care Management Progress Note S/O:Jennifer remains critically ill in the ICU. She is still unresponsive and her pulmonary status has further deteriorated. ARDS is being considered in her differential diagnosis and it is possible that Jennifer will require intubation. If this becomes necessary, she will likely need to be transferred to a tertiary care center. RT attempted to perform an EEG today but was unsuccessful due to excessive motion on Jennifer's part. Jennifer's has been very supportive and involved per nursing staff, and calls and visits frequently. A:Jennifer is a 62 year old woman admitted on 08/12/22 with Pneumonia and respiratory failure P:Jennifer remains in the ICU and is not coherent or able to engage in conversation. Investigative studies continue. Her disposition is uncertain at this time. CM will continue to support Jennifer and assess for discharge planning concerns.
[2022-08-14] MEDS: Albuterol/Ipratropium 3 ML UPD VIAL UPD ×2 (10:49→14:07)
[2022-08-14] MEDS: MORPHine 2 MG/ML SYR 1 MG IVP ×2 (11:13→17:40)
[2022-08-14] MEDS: AZITHROMYCIN 250 MG in Normal Saline 250 ML IVPB (11:58)
[2022-08-14 13:54] LABS: BE -4 mmol/L (-2-3); HCO3 22 mmol/L (22-26); pCO2 39 mmHg (35-45); pH 7.35 (7.35-7.45); pO2 78 mmHg (80-105); sO2 95 % (95-98); tCO2 20 mmol/L (23-27)
[2022-08-14 13:55] LABS: FIO2 65 %; Site Left Radial
[2022-08-14] MEDS: DEXTROSE 5%-LACTATED RINGERS 1,000 ML 75 ML IV (14:05)
--- NOTE | 2022-08-14 14:31 | CHAPLAIN ---
Jennifer is in the ICU being closely monitored. She is not alert. Her and a son have been in to visit. I left a prayer shawl for Jennifer and will try to get back to her room around 5 p.m. when her is expected back. 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 She was her for hip surgery earlier in the week and then returned after being home a few days and how has pneumonia. I will continue to visit.
[2022-08-14] MEDS: Furosemide 100 MG/10 ML VIAL 80 MG IVP (16:18)
[2022-08-14 16:24] LABS: PHOSPHORUS 5.1 mg/dL (2.6-4.7)
[2022-08-14] MEDS: DOBUTamine 500 MG/250 ML BAG IV ×2 (16:33→21:21)
[2022-08-14] MEDS: Enoxaparin 40 MG/0.4 ML SYR SC (16:49)
--- NOTE | 2022-08-14 17:00 | RT.EKG_ITS ---
APPROVED REPORT Exam: Resting ECG Reason for Exam: CHF Patient Location: I HR:141 bpm ECG Measurements Heart Rate 141 AXIS ID 139 P 55 QRSd 68 QRS 98 QT 318 T 8 QTc 487 Conclusion Sinus tachycardia...rate> 99 Ventricular premature complex...V complex w/ short R-R interval Low voltage, extremity leads...all extremity leads <0.5mV Abnormal lateral Q waves...Q >35mS, V5 V6 I aVL Anteroseptal infarct, old...Q >40mS, V1-V2
[2022-08-14 17:21] LABS: Potassium 3.6 mmol/L (3.5-5.1)
[2022-08-14 17:30] LABS: NT-proBNP > 35000 pg/mL (<300); Troponin I 1686 ng/L (<or=60)
[2022-08-14] MEDS: Metoprolol 5 MG/5 ML VIAL 2.5 MG IVP (17:40)
[2022-08-14 18:11] LABS: INR 1.4 (0.9-1.1); Prothrombin Time 14.3 sec (9.3-11.0)
--- NOTE | 2022-08-14 18:45 | DI.RAD_ITS ---
Exam(s) XR PORTABLE CHEST AP EXAM: XR PORTABLE CHEST AP CLINICAL HISTORY: post intubation TECHNIQUE: 2D digital imaging was performed of the chest. One image was obtained. An AP view was ob tained. COMPARISON: CR,XR XR PORTABLE CHEST AP from 08/14/2022 FINDINGS: MEDIASTINUM: Normal. HEART: Normal. PULMONARY VASCULATURE: Normal. LUNGS: There again seen bilateral airspace opacities. There may be slight worsening particularly in the left upper lobe. PLEURAL SPACE: No pleural effusion or pneumothorax. BONE:Within normal limits for the patient's age. OTHER FINDINGS:The tip of the endotracheal tube terminates 3.6 cm above the consuelo. The feeding tube tip is seen in the distal esophagus above the diaphragm. It is not in good position and should be a dvanced. IMPRESSION: 1. Tip of the endotracheal tube is in good position 3.6 cm above the consuelo. 2. The tip of the feeding tube is seen in the distal esophagus above the diaphragm. This is not in g ood position and should be advanced. 3. Persistent bilateral pulmonary infiltrates which show slight worsening particularly in the left up per lobe. DATA REPOSITORY: RADIATION DOSE DELIVERED:
--- NOTE | 2022-08-14 19:00 | W.ANESAIR ---
Airway Management Note Procedure Date and Time DO NOT use this note for patients in the OR, Use Intraop Record Instead Date Performed: 08/14/22 Procedure Time: 18:12 Procedure Location Procedure Location: Intensive Care Unit Requesting Provider: Rory Sevilla Number of Previous Intubation attempts by other providers: 0 Procedure Type Procedure Type: Emergency Pre-Induction Setup Sterility: Hand Hygiene and Surgical Mask Preinduction Setup: Standard monitors applied, BVM at bedside, Suction ready, Airway equipment ready, Medications ready, IV/IO access patent & flowing and Post induction medications ready Induction Induction Time: 18:12 Induction setup: Pt. evaluated prior to induction, BiPAP/CPAP and Bag Valve Mask Ventilation Induction Medications (Indicate Dose Given): Fentanyl IV Dose:: 50 mcg, 50 mcg divided dose, see ICU charting for administration time, Versed IV Dose:: 3mg, Rocuronium IV Dose:: 50mg and Epinephrine Dose:: 10 mcg, 10 mcg Mask Ventilation: None Induction Comment: Versed and fentanyl administered in divided doses and waited until patient no longer had eyelid reflexes, rocuronium administered. Finger sweep for thick secretions, then tube placed without difficulty. Airway Device Airway Type: Intubation Laryngoscopy: Atraumatic Laryngoscopy Airway Grade: 1 Airway Blades: Glidescope 3 Endotracheal Tube: Oral, Cuffed and 7.0mm ETT Depth Where Secured (cm): 23 Placement Confirmation: Cuff inflated with minimally occlusive pressure, Secured with commercial device, Bilateral breath sounds, ETCO2 waveform present and Depth to teeth Number of Attempts (See previous attempts in note section): 1 Intubation Comment: Induction medication administered in divided doses, see charting, waited until patient was unresponsive to eyelash reflexes and rocuronium administered. Dry oral airway, finger sweep for thick secretion, and then yanker suction and tube placement. BVM to ventilator. See note above. Post Induction Management Post Induction Medications (Indicate Dose Given): Managed by Requesting Provider Gastric Tube Gastric Tube: Not Placed Procedure Complications Procedure Complications: None Procedure Outcome Procedure Outcome: Successful Proceduralist Performed By: Marilyn Post
--- NOTE | 2022-08-14 20:14 | DI.VRAD_ITS ---
PROCEDURE INFORMATION: Exam: XR Chest Exam date and time: 08/14/2022 7:14 PM Age: 62 years old Clinical indication: Device placement; Ett placement (vent status); Additional info: Et and ng tube placement TECHNIQUE: Imaging protocol: Radiologic exam of the chest. Views: 1 view. COMPARISON: CR XR PORTABLE CHEST AP 08/14/2022 6:30 AM FINDINGS: Tubes, catheters and devices: Endotracheal tube in place, terminates approximately 3.4 cm above the consuelo. Gastric tube in place, terminates within the distal esophagus, recommend advancement. Lungs: Diffuse bilateral airspace disease, similar appearance to the prior study. Pleural spaces: Unremarkable. No pleural effusion. No pneumothorax. Heart/Mediastinum: Unremarkable. No cardiomegaly. Bones/joints: Unremarkable. IMPRESSION: Bilateral airspace opacities, multifocal pneumonia and/or ARDS. Endotracheal tube in place. Gastric tube terminates at the level of the distal esophagus, recommend advancement and repeat radiographs. Dictated and Authenticated by: Alex Akers MD. Ordering:[facility] Roel Valadez MD
--- NOTE | 2022-08-14 20:18 | DSE_ITS ---
Date of service: 08/14/22 Time of Service: 20:18 DS: Diagnosis Discharge Diagnosis (1) Acute respiratory failure with hypoxia: Status: Acute Asessment and Plan: Initially presented as severe bilateral multifocal pnuemonia w/ sepsis and initially ruled out for CA on admission but then developed cardiogenic pulmonary edema and found to have LVEF depressed at 25% w/ markedly elevated troponin 1600 ng/L. Patient was begun on heparin drip, lasix drip, dobutamine drip and was intubated and mechanically ventilated. Patient had been on aspirin ME and plavix was ordered but never given as no enteral route was able to be established d/t failure to pass NG (NG was placed but could not reach the stomach d/t Farrell's esophagitis. NG tip was successfully advanced to 45 cm before inability to pass further and NG tip seen in lower 1/3 of esophagus. Patient remains tachycardic but w/ stable BP. She needed some iv push doses of epinephrine gavin-intubation but never required an epinephrine drip. Patient was transferred via [facility] mobile ICU (life flight was not flying). (2) Acute cardiogenic pulmonary edema: Status: Acute (3) NSTEMI (non-ST elevated myocardial infarction): Status: Acute (4) Bilateral pneumonia: Status: Acute (5) Acute metabolic encephalopathy: Status: Acute (6) Alcohol abuse: Status: Chronic (7) Status post hip surgery: Status: Acute (8) Diabetes mellitus type 2 in obese: (9) Farrell's esophagus: Status: Chronic (10) Closed fracture of neck of left femur: Status: Acute (11) Neuroleptic induced parkinsonism: Status: Acute Discharge Plan Disposition Patient Disposition: Transfer-Acute Inpatient Care Specific Acute In Facility: [facility] [place] Condition: Critical Discharge Details Reason For Visit: Bilateral Pneumonia; Acute Hypoxic Resp. Failure Admit Date/Time: 08/12/22 14:26 Admit Provider: Rory Sevilla Attending Provider: Rory Sevilla Primary Care Provider: Ana Gillespie Hospital Course Hospital Course: 62-year-old female with a past medical history of type 2 diabetes mellitus, neuroleptic induced parkinsonism, previous alcohol abuse since been abstinent for the past year, Farrell's esophagitis, and depression and bipolar disorder who was admitted to [facility] on 08/08/2022 after mechanical fall that occurred on 08/07/2020. Patient sustained a closed fracture of the left proximal femur and underwent screw fixation of the hip on 08/09/2022. Patient did well postoperatively and was discharged home on 08/10/2022. Patient was discharged on a modest dose of oxycodone for pain as well as aspirin 325 mg twice a day for DVT prophylaxis. She presented to the emergency department on 08/12/2022 after being found unresponsive and hypoxic. Her could not arouse her. EMS gave her Narcan which seemed to improve her alertness but she was hypoxemic and given supplemental oxygen. In the emergency department she received 2 more doses of Narcan and a work-up was performed that showed diffuse bilateral infiltrates on her chest x-ray and she was found to have elevated blood lactate of 3.8 and normal troponin I level of less than 50 with an elevated proBNP of 1041. White blood cell count was elevated at 15,000. Chest CTA was performed to rule out pulmonary embolus. No pulmonary emboli were seen. Patient was noted to have marked thickening of the esophagus from the upper third through the GE's junction as well as a hiatal hernia. Pulmonary parenchyma showed severe bilateral alveolar infiltrates in both upper and lower lobes with a predominance in the lower lobes. No pleural effusion was seen. Heart is not dilated and no coronary calcifications are seen on the CTA. Thoracic aorta was nondilated without any aneurysm. Blood cultures are obtained on admission which as of this date shows no growth. Nasal swab for MRSA came back negative. Patient was empirically treated with vancomycin and Zosyn. Zosyn which changed to cefepime 2 g IV every 8 hours, azithromycin was added to her regimen. MRSA screen came back negative vancomycin was discontinued. Because of her ongoing agitation CT scan of the head was performed on 08/13/2022 showed no acute intracranial findings on noncontrast CT scan of the brain. EEG and echocardiogram are ordered on 08/13/2022 but not performed because the patient was agitated. EEG and echocardiogram was subsequently obtained on 08/14/22. She was maintained on supplemental oxygen on nasal cannula then an oxymask at 4 lpm until the morning of 08/14/22 when she developed worsening oxygenation and required BIPAP. Subsequent repeat CXR on the morning of 08/14 demonstrated worsening diffuse bilateral pulmonary infiltrates suspicious of either non-cardiogenic pulmonary edema or cardiogenic pulmonary edema. The troponin I levels had been cycled x 3 sets on the day of admissoin on 08/12 and her EKG did not show acute ST elevation so an CA had been presumed to have been ruled out from admission but with the worsening hypoxemia repeat troponin and BNP were obtained as well as the echocardiogram. Repeat EKG demonstrates sinus tachycardia at 140 bpm w/ anterior Q waves however EKG was not dissimilar to her admission EKG on 08/12 and her preop EKG from 08/08/22. Troponin which had been <50 ng/L x 3 sets on 08/12 was now 1686 ng/L and her BNP which had been 1041 pg/mL on 08/12/22 had risen to >26325. Echocardiogram demonstrated LVEF 25% per Dahl's biplane, LVOT VTI of 11.5 cm, calculated SV of 30 mL. TR Vmax 2.37 m/s, TR peak 22.5 mm. RVOT VTI of 8.5 cm and TAPSE of 12 mm. Indicative of biventricular HF. Patient was begun on dobutamine drip at 2 mcg/kg/minute and lasix drip at 5 mg/hr after bolus of 80 mg. She had been on aspirin 325 mg po bid for DVT prophylaxis and while she was NPO d/t her encephalopathy she was receiving ASA 300 mg ME bid. When the CA was discovered she was heparinized (she had been on enoxaparin 40 mg SC from admission. She was urgently intubated and [facility] transfer center was contacted and I spoke w/ a quotation checker who accepted the patient for transfer to [facility] to service of Dr. Terry. Home Meds and New Rx's Prescriptions: No Action divalproex [Depakote ER] 250 mg tablet extended release 24 hr 500 mg PO DAILY Rx Instructions: AT 1900 insulin aspart U-100 [Novolog FlexPen U-100 Insulin] 100 unit/mL (3 mL) insulin pen 5 unit subcut TID Rx Instructions: Inject 1 unit subcutaneously twice a day as directed, inject 2 units for BG 151-250, 3 units for BG 251-300, 4 units for BG 301-350 Humulin N NPH Insulin KwikPen 100 unit/mL (3 mL) insulin pen 40 unit SUBCUT DAILY Patient Comments: INJECT 40 UNITS UNDER THE SKIN EVERY NIGHT quetiapine 100 mg tablet 300 mg PO HS sucralfate 1 gram tablet 1 g PO QID Patient Comments: TAKE ONE TABLET BY MOUTH FOUR TIMES A DAY melatonin 10 mg Tablet 10 mg PO QHS folic acid 1 mg Tablet 1 mg PO DAILY Qty: 0 0RF polyethylene glycol 3350 17 gram Powder In Packet 17 g PO BID Qty: 0 0RF thiamine mononitrate (vit B1) [Vitamin B-1 (mononitrate)] 100 mg Tablet 100 mg PO QAM Qty: 0 0RF ibuprofen 800 mg tablet 800 mg PO Q8H PRNQty: 60 0RF oxycodone 5 mg tablet 5 mg PO Q6H PRNQty: 30 0RF aspirin [Adult Aspirin Regimen] 81 mg tablet,delayed release (DR/EC) 81 mg PO BID 30 Days Qty: 60 0RF multivitamin [Multiple Vitamins] Tablet 1 tab PO DAILY Qty: 30 0RF divalproex [Depakote ER] 500 mg Tablet Extended Release 24 Hr 1,000 mg PO DAILY Rx Instructions: AT 1500 pantoprazole [Protonix] 40 mg tablet,delayed release (DR/EC) 40 mg PO BID Qty: 60 0RF Discharge Instructions Instructions: Heart Failure (DC), Acute Coronary Syndrome (DC) Activity:: bedrest Equipment/Supplies:: No Equipment Needed Diet:: npo Discharge Orders Discharge Orders: Discharge Order (Routine); Ordered 08/14/22 Ordered By: Rory Sevilla DS: Summary Time Spent with Patient providing and/or coordinating discharge services: Greater than 30 minutes Status at Discharge Functional status at discharge: bed bound Overall status at discharge: patient is not back to baseline Mental Status: other Speech and Movement: other Mood: other Affect: other Exam Narrative Exam Narrative: Patient is intubated and sedated on mechanical ventilation. Patient did require some vasopressors with epinephrine pushes postintubation blood pressures have stabilized. HEENT: edema of eyelids, no facial asymmetry; positive Doll's eyes,\ Neck: supple, no overt JVD, carotid pulses present; tachycardic Lungs: diffuse rales, good air movement in all lung howard Heart: tachycardic, regular, no appreciable murmur Abdomen: postive bowel sounds, soft, nontender Extremities: trace pedal edema, no cyanosis Psych Mental Status: other Speech and Movement: other Mood: other Affect: other DS: Data Vitals/I&O Vitals and I&O: Vital Signs Temperature 36.6 C 08/14/22 18:14 Temperature Source Temporal Artery Scan 08/14/22 18:14 Pulse 122 H 08/14/22 18:10 Pulse 139 H 08/14/22 16:20 Respiratory Rate 31 H 08/14/22 16:20 Respiratory Effort Labored, Accessory Muscle Use 08/14/22 18:14 Respiratory Depth Shallow 08/14/22 18:14 Respiratory Pattern Tachypnea 08/14/22 18:14 Blood Pressure 115/70 08/14/22 16:20 Blood Pressure Mean 80 08/14/22 16:20 Blood Pressure Position Supine 08/14/22 18:14 Pulse Oximetry 88 L 08/14/22 16:20 Respiratory End-tidal CO2 26 08/12/22 16:02 Oxygen Delivery Method Bi-pap 08/14/22 18:14 Oxygen Flow Rate 15 08/14/22 04:36 Fraction of Inspired Oxygen (FIO2) 60 08/14/22 16:33 Pain Level 0 08/14/22 12:02 Intake & Output 08/13/22 08/14/22 08/14/22 23:59 11:59 23:59 Intake Total 1200 / 1550 1100.0 / 1582.5 482.5 / 1582.5 Output Total 750 / 1400 200 / 765 565 / 765 Balance 450 / 150 900.0 / 817.5 -82.5 / 817.5 Weight 69.4 kg 69.1 kg Intake: IV 1200 / 1550 1100.0 / 1582.5 482.5 / 1582.5 Output: Urine 750 / 1400 200 / 765 565 / 765 Other: Urine Color Dark Khoa Dark Khoa Yellow Urine Appearance Clear Clear Clear Comment Indwelling Barba catheter. barba is patent Pt is on a Furosemide gtt at 5mg/hr. Indwelling Barba catheter, urine pale khoa. Data Completed and Pending Labs on day of discharge: Labs from last 24 hours 08/14/22 08/14/22 08/14/22 17:48 16:00 16:00 WBC RBC Hgb Hct MCV MCH MCHC RDW Plt Count MPV Immature Gran % Neutrophils % Band Neutrophils % Lymphocytes % Monocytes % Eosinophils % Basophils % Nucleated RBC % Absolute Neutrophils Absolute Lymphocytes Absolute Monocytes Absolute Eosinophils Absolute Basophils RBC Morphology Hypochromasia Poikilocytosis Anisocytosis Microcytosis PT 14.3 H INR 1.4 H APTT 37.0 H ABG Sample Site ABG pH ABG pCO2 ABG pO2 ABG HCO3 ABG Total CO2 ABG O2 Saturation ABG Base Excess VBG pH VBG pCO2 VBG pO2 VBG HCO3 VBG Total CO2 VBG O2 Saturation VBG Base Excess FiO2 Sodium Potassium 3.6 Chloride Carbon Dioxide Anion Gap BUN Creatinine Est GFR (CKD-EPI 2020) Glucose Calcium Phosphorus 5.1 H Total Bilirubin AST ALT Alkaline Phosphatase Troponin I C-Reactive Protein NT-Pro-B Natriuret Pep Total Protein Albumin Procalcitonin Vancomycin Trough Urine Legionella Ag Add-On Test Request 08/14/22 08/14/22 08/14/22 14:00 13:46 13:00 WBC RBC Hgb Hct MCV MCH MCHC RDW Plt Count MPV Immature Gran % Neutrophils % Band Neutrophils % Lymphocytes % Monocytes % Eosinophils % Basophils % Nucleated RBC % Absolute Neutrophils Absolute Lymphocytes Absolute Monocytes Absolute Eosinophils Absolute Basophils RBC Morphology Hypochromasia Poikilocytosis Anisocytosis Microcytosis PT INR APTT ABG Sample Site Left Radial ABG pH 7.35 ABG pCO2 39 ABG pO2 78 L ABG HCO3 22 ABG Total CO2 20 L ABG O2 Saturation 95 ABG Base Excess -4 L VBG pH VBG pCO2 VBG pO2 VBG HCO3 VBG Total CO2 VBG O2 Saturation VBG Base Excess FiO2 65 Sodium Potassium Chloride Carbon Dioxide Anion Gap BUN Creatinine Est GFR (CKD-EPI 2020) Glucose Calcium Phosphorus Total Bilirubin AST ALT Alkaline Phosphatase Troponin I 1686 H* C-Reactive Protein NT-Pro-B Natriuret Pep > 37248 H Total Protein Albumin Procalcitonin Vancomycin Trough Cancelled Urine Legionella Ag Add-On Test Request 08/14/22 08/14/22 08/14/22 05:50 05:50 05:50 WBC 35.55 H* RBC 5.81 H Hgb 11.7 Hct 39.1 MCV 67 L MCH 20.1 L MCHC 29.9 L RDW 29.4 H Plt Count 375 D MPV Immature Gran % 0.0 Neutrophils % 91.0 Band Neutrophils % 5 Lymphocytes % 2.0 Monocytes % 2.0 Eosinophils % 0.0 Basophils % 0.0 Nucleated RBC % 0.0 Absolute Neutrophils 34.13 H Absolute Lymphocytes 0.71 L Absolute Monocytes 0.71 Absolute Eosinophils 0.00 Absolute Basophils 0.00 RBC Morphology See Below Hypochromasia 1+ Poikilocytosis 2+ Anisocytosis 2+ Microcytosis 2+ PT INR APTT ABG Sample Site ABG pH ABG pCO2 ABG pO2 ABG HCO3 ABG Total CO2 ABG O2 Saturation ABG Base Excess VBG pH 7.34 VBG pCO2 44 VBG pO2 43 VBG HCO3 24 VBG Total CO2 22 L VBG O2 Saturation 75 VBG Base Excess -2 FiO2 Sodium Potassium Chloride Carbon Dioxide Anion Gap BUN Creatinine Est GFR (CKD-EPI 2020) Glucose Calcium Phosphorus Total Bilirubin AST ALT Alkaline Phosphatase Troponin I C-Reactive Protein NT-Pro-B Natriuret Pep Total Protein Albumin Procalcitonin Vancomycin Trough Urine Legionella Ag Add-On Test Request DONE 08/14/22 08/14/22 08/14/22 05:50 05:50 01:50 WBC RBC Hgb Hct MCV MCH MCHC RDW Plt Count MPV Immature Gran % Neutrophils % Band Neutrophils % Lymphocytes % Monocytes % Eosinophils % Basophils % Nucleated RBC % Absolute Neutrophils Absolute Lymphocytes Absolute Monocytes Absolute Eosinophils Absolute Basophils RBC Morphology Hypochromasia Poikilocytosis Anisocytosis Microcytosis PT INR APTT ABG Sample Site ABG pH ABG pCO2 ABG pO2 ABG HCO3 ABG Total CO2 ABG O2 Saturation ABG Base Excess VBG pH VBG pCO2 VBG pO2 VBG HCO3 VBG Total CO2 VBG O2 Saturation VBG Base Excess FiO2 Sodium 142 Potassium 3.5 Chloride 106 Carbon Dioxide 25.1 Anion Gap 10.9 BUN 23 H Creatinine 1.1 H Est GFR (CKD-EPI 2020) 56.81 Glucose 129 H Calcium 9.4 Phosphorus Total Bilirubin 0.4 AST 27 ALT 19 Alkaline Phosphatase 111 Troponin I C-Reactive Protein > 25.00 H NT-Pro-B Natriuret Pep Total Protein 6.4 Albumin 1.9 L Procalcitonin 3.2 Vancomycin Trough 23.8 H* Urine Legionella Ag Add-On Test Request 08/12/22 18:12 WBC RBC Hgb Hct MCV MCH MCHC RDW Plt Count MPV Immature Gran % Neutrophils % Band Neutrophils % Lymphocytes % Monocytes % Eosinophils % Basophils % Nucleated RBC % Absolute Neutrophils Absolute Lymphocytes Absolute Monocytes Absolute Eosinophils Absolute Basophils RBC Morphology Hypochromasia Poikilocytosis Anisocytosis Microcytosis PT INR APTT ABG Sample Site ABG pH ABG pCO2 ABG pO2 ABG HCO3 ABG Total CO2 ABG O2 Saturation ABG Base Excess VBG pH VBG pCO2 VBG pO2 VBG HCO3 VBG Total CO2 VBG O2 Saturation VBG Base Excess FiO2 Sodium Potassium Chloride Carbon Dioxide Anion Gap BUN Creatinine Est GFR (CKD-EPI 2020) Glucose Calcium Phosphorus Total Bilirubin AST ALT Alkaline Phosphatase Troponin I C-Reactive Protein NT-Pro-B Natriuret Pep Total Protein Albumin Procalcitonin Vancomycin Trough Urine Legionella Ag Negative Add-On Test Request Preliminary micro results at discharge 08/12/22 14:20 Blood Culture - Preliminary Blood NO GROWTH 48 HOURS 08/12/22 14:08 Blood Culture - Preliminary Blood NO GROWTH 48 HOURS PFSH All Active Problems NSTEMI (non-ST elevated myocardial infarction) (Acute) Acute cardiogenic pulmonary edema (Acute) Discharge planning issues (Acute) DVT prophylaxis (Acute) Acute metabolic encephalopathy (Acute) Acute respiratory failure with hypoxia (Acute) Bilateral pneumonia (Acute) Status post hip surgery (Acute) Alcohol abuse (Chronic) Diabetes (Chronic) Farrell's esophagus (Chronic) Anemia (Chronic) Closed fracture of neck of left femur (Acute) s/p Percutaneous Screw Fixation 08/09/22 Hypokalemia (Acute) Constipation (Acute) Drug-induced parkinsonism (Acute) Neuroleptic induced parkinsonism (Acute) Tubular adenoma (Acute ~06/10/21) Hyperplastic colon polyp (Acute ~06/10/21) Farrell's 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 (Acute) Erosive esophagitis (Acute) Esophageal ulcer with bleeding (Acute) Chronic diarrhea (Acute) Black tarry stools (Acute) Leukocytosis (Acute) Pleural effusion (Acute) Ventral hernia (Acute) Depression (Chronic) Bipolar 1 disorder (Acute) Cholelithiasis (Chronic) Medical History Anxiety Chronic iron deficiency anemia Chronic pancreatitis due to acute alcohol intoxication Diabetes mellitus type 2 in obese ETOH abuse History of pilonidal cyst Poorly controlled diabetes mellitus Surgical History History of section History of colonoscopy with polypectomy (~06/10/21) History of esophagogastroduodenoscopy (EGD) (~06/10/21) History of hysterectomy History of tonsillectomy S/P laparoscopic procedure cyst removed from stomach per patient S/P surgical removal of pilonidal cyst Family History Father Hypertension Diabetes Heart disease Social History Smoking/Tobacco Use Status: Former Tobacco Use Quit Date: 02/07/21 Smoking risk assessment performed?: Yes Alcohol Intake: former Drug use: Never Substance use type: does not use Details: pt. 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 Time Spent with Patient Time Spent with Patient: 45-69 minutes Time was spent: preparing to see the patient(eg.review tests), ordering medications,tests, procedures, referring, communicating with other health home health aide caregiver (phone consultation w/ [facility] cardiology; discussion of care w/ nursing), indepentently interpreting results, counseling the patient ( and son) and care coordination
[2022-08-14 20:34] LABS: BE (Venous) -6 mmol/L (-2-3); HCO3 (Venous) 22 mmol/L (23-28); O2 Sat (Venous) 85 %; TCO2 (Venous) 22 mmol/L (24-29); pO2 (Venous) 63 mmHg
[2022-08-14 20:37] LABS: pCO2 (Venous) 61 mmHg (41-51); pH (Venous) 7.17 (7.31-7.41)
[2022-08-14] MEDS: MIDAZOLAM 50 MG in Normal Saline 90 ML IV (20:37)
[2022-08-14 20:38] LABS: Lab Add On Test DONE
[2022-08-14 20:56] LABS: Troponin I 1607 ng/L (<or=60)
[2022-08-14 21:08] LABS: BE (Venous) -6 mmol/L (-2-3); HCO3 (Venous) 22 mmol/L (23-28); O2 Sat (Venous) 84 %; TCO2 (Venous) 21 mmol/L (24-29); pCO2 (Venous) 56 mmHg (41-51); pO2 (Venous) 59 mmHg
[2022-08-14 21:11] LABS: Lactate 2.1 mmol/L (0.6-1.4)
[2022-08-14] MEDS: fentaNYL 100 MCG/2 ML VIAL (23:15)
[2022-08-15 00:14] LABS: Streptococcus Pneumoniae Ag, U Negative (Negative)
== END 2022-08-14 22:15 | disposition short-term general hospital (02) | DRG 871 ==
LOC: ER 15:52 → ICU 17:38
PROVIDERS: Family Medicine; Internal Medicine; Admitting Provider Internal Medicine; Emergency Provider Physician Assistant; PCP Nurse Practitioner Family; Visit Provider Internal Medicine
DX: A41.9 Sepsis, unspecified organism (principal); G93.41 Metabolic encephalopathy; J18.9 Pneumonia, unspecified organism; J96.01 Acute respiratory failure with hypoxia; J81.0 Acute pulmonary edema; I21.4 Non-ST elevation (NSTEMI) myocardial infarction; G21.11 Neuroleptic induced parkinsonism; K86.0 Alcohol-induced chronic pancreatitis; F10.10 Alcohol abuse, uncomplicated; K20.90 Esophagitis, unspecified without bleeding; F41.9 Anxiety disorder, unspecified; Z79.4 Long term (current) use of insulin; K22.70 Barrett's esophagus without dysplasia; E11.9 Type 2 diabetes mellitus without complications; S72.002D Fracture of unspecified part of neck of left femur, subsequent encounter for closed fracture with routine healing; X58.XXXD Exposure to other specified factors, subsequent encounter; F31.9 Bipolar disorder, unspecified; E87.6 Hypokalemia; K59.00 Constipation, unspecified; K52.9 Noninfective gastroenteritis and colitis, unspecified; D50.9 Iron deficiency anemia, unspecified; E11.65 Type 2 diabetes mellitus with hyperglycemia; Z87.891 Personal history of nicotine dependence
CPT/HCPCS: 36415; 36416; 36569; 36592; 71275; 80053; 80307; 82803; 82805; 82962; 83690; 84145; 87040; 87081; 87449; 87637; 93005; 94640; 96361; 96365; 96367; 96368; 96374; 99285; J1650; 36600; 70450; 71045; 80164; 80202; 80320; 80329; 81003; 81015; 82140; 83605; 83735; 83880; 84100; 84132; 84484; 85025; 85610; 85730; 86140; 87899; 93010; 93306; 94760; 99239; 99291; J0131; J0171; J0456; J1100; J1885; J1940; J1941; J2060; J2250; J2270; J2310; J2543; J2930; J3010; J3490; J7614; J7620

== ENCOUNTER 2022-09-27 14:50 | Emergency (ER) | payer MEDICAID, SELFPAY ==
[2022-09-27 14:52] VITALS: BP 108/61; PULSE 98; RESP 18; TEMP 36.6; O2SAT 95
--- NOTE | 2022-09-27 15:52 | DI.RAD_ITS ---
Exam(s) XR ABDOMEN FLAT PLATE EXAM: 2D digital imaging was performed. CLINICAL HISTORY: gastrograffin for ng tube placement. COMPARISON: No exams were available for comparison TECHNIQUE: Supine views of the abdomen performed. Three views were obtained. FINDINGS: BOWEL GAS PATTERN: The gastrostomy tube tip does not appear to lie within the gastric lumen. There i s a thin line of contrast leading from the tip to the stomach which may represent a fistula. There i s no evidence of bowel obstruction. CALCIFICATIONS: No radiopaque calcifications. OSSEOUS STRUCTURES: Normal for age. There are 3 partially threaded screws transfixing an old subcapit al left femoral neck fracture. OTHER FINDINGS: Atherosclerosis is present. IMPRESSION: 1. Nonobstructive bowel gas pattern. 2. The tip of the gastrostomy tube is external to the gastric lumen. Opacification into the stomach appears to occur through a small fistula. CT scan of the abdomen without contrast may be considered for further evaluation. DATA REPOSITORY: RADIATION DOSE DELIVERED:
--- NOTE | 2022-09-27 16:06 | ED.GENADUL_ITS ---
Discharge Plan Disposition Patient Disposition: Home Discharge Details Clinical Impression: S/P gastrostomy tube (G tube) placement, follow-up exam Primary Care Provider: Ana Gillespie ED Provider: Anthony Henderson Home Meds and New Rx's Prescriptions: No Action divalproex [Depakote ER] 250 mg tablet extended release 24 hr 500 mg PO DAILY Rx Instructions: AT 1900 insulin aspart U-100 [Novolog FlexPen U-100 Insulin] 100 unit/mL (3 mL) insulin pen 5 unit subcut TID Rx Instructions: Inject 1 unit subcutaneously twice a day as directed, inject 2 units for BG 151-250, 3 units for BG 251-300, 4 units for BG 301-350 Humulin N NPH Insulin KwikPen 100 unit/mL (3 mL) insulin pen 40 unit SUBCUT DAILY Patient Comments: INJECT 40 UNITS UNDER THE SKIN EVERY NIGHT quetiapine 100 mg tablet 300 mg PO HS sucralfate 1 gram tablet 1 g PO QID Patient Comments: TAKE ONE TABLET BY MOUTH FOUR TIMES A DAY melatonin 10 mg Tablet 10 mg PO QHS folic acid 1 mg Tablet 1 mg PO DAILY Qty: 0 0RF polyethylene glycol 3350 17 gram Powder In Packet 17 g PO BID Qty: 0 0RF thiamine mononitrate (vit B1) [Vitamin B-1 (mononitrate)] 100 mg Tablet 100 mg PO QAM Qty: 0 0RF ibuprofen 800 mg tablet 800 mg PO Q8H PRNQty: 60 0RF oxycodone 5 mg tablet 5 mg PO Q6H PRNQty: 30 0RF multivitamin [Multiple Vitamins] Tablet 1 tab PO DAILY Qty: 30 0RF divalproex [Depakote ER] 500 mg Tablet Extended Release 24 Hr 1,000 mg PO DAILY Rx Instructions: AT 1500 pantoprazole [Protonix] 40 mg tablet,delayed release (DR/EC) 40 mg PO BID Qty: 60 0RF Discharge Instructions Additional Instructions: please follow all instructions given to you by your providers. return if any concerns Discharge Data Discharge Date/Time-TO BE ENTERED AT DEPARTURE: 09/27/22 19:21 Medical Decision Making <ROSLYN Stafford - Last Filed: 09/28/22 21:26> 60-year-old female presents with G-tube dislodgment an hour prior to arrival G-tube was attempted to be replaced, there was some resistance and only 1 cc of saline was able to be placed in the balloon Only mild traction was performed, there is some resistance, case was discussed with Dr. Christina, on-call surgeon and his recommendation is that we attempt a Gastrografin instillation to confirm appropriate placement KUB and Gastrografin initiated Vital stable at time of initial assessment Case discussed with Dr. Henderson who will accept patient in transition at signout HPI <ROSLYN Stafford - Last Filed: 09/28/22 21:26> General Date/Time Provider Initiated Documentation: 09/27/22 15:11 . HPI Narrative: This complex 62-year-old female with history of non-ST elevation CA, cardiogenic pulm edema, acute metabolic encephalopathy and esophageal stricture with vomiting presents with report of recent G-tube placement approximately a week ago at her with a [facility], this display secondary to vomiting and esophageal stricture. She states that she coughed today and the G-tube dislodged. Spent approximately an hour. She did receive 400 cc feeding this morning. She is predominantly being fed by parenteral nutrition. Related Data Home Medications Medication Instructions Recorded Confirmed insulin NPH isoph U-100 human 100 40 unit subcut DAILY 03/04/21 08/12/22 unit/mL (3 mL) subcutaneous pen (Humulin N NPH U-100 Insulin KwikPen) quetiapine 100 mg tablet 300 mg PO HS 04/22/21 08/12/22 divalproex 250 mg tablet,extended 500 mg PO DAILY 05/16/21 08/12/22 release 24 hr (Depakote ER) divalproex 500 mg tablet,extended 1,000 mg PO DAILY 06/10/21 08/12/22 release 24 hr (Depakote ER) insulin aspart U-100 100 unit/mL 5 unit subcut TID 07/16/21 08/12/22 (3 mL) subcutaneous pen (Novolog FlexPen U-100 Insulin aspart) pantoprazole 40 mg tablet,delayed 40 mg PO BID #60 tabs 07/19/21 08/12/22 release (Protonix) melatonin 10 mg tablet 10 mg PO QHS 08/08/22 08/12/22 sucralfate 1 gram tablet 1 g PO QID 08/08/22 08/12/22 folic acid 1 mg tablet 1 mg PO DAILY #0 tabs 08/10/22 ibuprofen 800 mg tablet 800 mg PO Q8H PRN #60 tabs 08/10/22 08/12/22 multivitamin (Multiple Vitamins 1 tab PO DAILY #30 tabs 08/10/22 08/12/22 tablet) oxycodone 5 mg tablet 5 mg PO Q6H PRN #30 tabs 08/10/22 08/12/22 polyethylene glycol 3350 17 gram 17 g PO BID #0 ea 08/10/22 08/12/22 oral powder packet thiamine mononitrate (vit B1) 100 100 mg PO QAM #0 tabs 08/10/22 08/12/22 mg tablet (Vitamin B-1 (mononitrate)) Previous Rx's Medication Instructions Recorded pantoprazole 40 mg tablet,delayed 40 mg PO BID #60 tabs 07/19/21 release (Protonix) folic acid 1 mg tablet 1 mg PO DAILY #0 tabs 08/10/22 ibuprofen 800 mg tablet 800 mg PO Q8H PRN #60 tabs 08/10/22 multivitamin (Multiple Vitamins 1 tab PO DAILY #30 tabs 08/10/22 tablet) oxycodone 5 mg tablet 5 mg PO Q6H PRN #30 tabs 08/10/22 polyethylene glycol 3350 17 gram 17 g PO BID #0 ea 08/10/22 oral powder packet thiamine mononitrate (vit B1) 100 100 mg PO QAM #0 tabs 08/10/22 mg tablet (Vitamin B-1 (mononitrate)) Allergies Allergy/AdvReac Type Severity Reaction Status Date / Time metformin Allergy Unknown Unverified 08/08/22 10:11 meperidine AdvReac gi upset Unverified 08/08/22 10:11 General Stated Complaint: Abd Prob ASHANTI: 4 PFSH <ROSLYN Stafford - Last Filed: 09/28/22 21:26> All Active Problems (Updated 09/28/22 @ 00:05 by HELDER SRIVASTAVA) S/P gastrostomy tube (G tube) placement, follow-up exam (Acute) NSTEMI (non-ST elevated myocardial infarction) (Acute) Acute cardiogenic pulmonary edema (Acute) Acute metabolic encephalopathy (Acute) Acute respiratory failure with hypoxia (Acute) Bilateral pneumonia (Acute) Status post hip surgery (Acute) Diabetes (Chronic) Farrell's esophagus (Chronic) Anemia (Chronic) Closed fracture of neck of left femur (Acute) s/p Percutaneous Screw Fixation 08/09/22 Hypokalemia (Acute) Constipation (Acute) Drug-induced parkinsonism (Acute) Neuroleptic induced parkinsonism (Acute) Tubular adenoma (Acute ~06/10/21) Hyperplastic colon polyp (Acute ~06/10/21) Farrell's 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 (Acute) Erosive esophagitis (Acute) Esophageal ulcer with bleeding (Acute) Chronic diarrhea (Acute) Black tarry stools (Acute) Leukocytosis (Acute) Pleural effusion (Acute) Ventral hernia (Acute) Depression (Chronic) Bipolar 1 disorder (Acute) Cholelithiasis (Chronic) Medical History Anxiety Chronic iron deficiency anemia Chronic pancreatitis due to acute alcohol intoxication Diabetes mellitus type 2 in obese ETOH abuse History of pilonidal cyst Poorly controlled diabetes mellitus Surgical History History of section History of colonoscopy with polypectomy (~06/10/21) History of esophagogastroduodenoscopy (EGD) (~06/10/21) History of hysterectomy History of tonsillectomy S/P laparoscopic procedure cyst removed from stomach per patient S/P surgical removal of pilonidal cyst Family History Father Hypertension Diabetes Heart disease Social History Smoking/Tobacco Use Status: Former Tobacco Use Quit Date: 02/07/21 Smoking risk assessment performed?: Yes Alcohol Intake: former Drug use: Never Substance use type: does not use Details: pt. 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 Exam <ROSLYN Stafford - Last Filed: 09/28/22 21:26> Narrative Exam Narrative: Patient appears chronically ill, pupils equal round reactive to light and accommodation, lungs clear to auscultation, cardiac rate rhythm regular, abdomen nondistended, incision with evidence of prior G-tube placement, no erythema surrounding, no crepitus Course <ROSLYN Stafford - Last Filed: 09/28/22 21:26> Vital Signs Vital signs: Vital Signs Temperature 36.6 C 09/27/22 14:52 Pulse 98 H 09/27/22 14:52 Respiratory Rate 18 09/27/22 14:52 Blood Pressure 108/61 09/27/22 14:52 Pulse Oximetry 95 09/27/22 14:52 Temperature 36.6 C 09/27/22 14:52 Pulse 98 H 09/27/22 14:52 Respiratory Rate 18 09/27/22 14:52 Blood Pressure 108/61 09/27/22 14:52 Pulse Oximetry 95 09/27/22 14:52 Oxygen Delivery Method Room Air 09/27/22 14:52 Oxygen Flow Rate 0 09/27/22 14:52 Pain Level 4 09/27/22 14:52 <Anthony Henderson MD - Last Filed: 09/27/22 19:07> Patient received in signout from my colleague. At the time of signout Gastrografin study was pending after an attempt to replace the G-tube. Gastrografin appears to be well located in the gastric cavity however it appears that the catheter may be consistent to the gastric wall. Case discussed marcellus with on-call surgeon Dr. Reece Clemente who will come and evaluate the patient Reevaluation(s) Initial Evaluation: Patient was seen by Dr Clemente- please see his noted for details of procdure. G Tube replaced , patient ready for DC Sign Out <ROSLYN Stafford - Last Filed: 09/28/22 21:26> Sign Out Data: Sign Out Comment: Pending G-tube replacement Last updated by Estephania Mireles PA at 09/27/22 16:15
[2022-09-27] MEDS: Gastrografin 120 ML BTL JT (17:34)
--- NOTE | 2022-09-27 17:35 | DI.VRAD_ITS ---
PROCEDURE INFORMATION: Exam: XR Abdomen Exam date and time: 09/27/2022 17:03 Age: 62 years old Clinical indication: Screening exam; Other: Gastrografin for peg tube placement TECHNIQUE: Imaging protocol: Radiologic exam of the abdomen. Views: Frontal supine view of the abdomen. 1 View. COMPARISON: CT ABDOMEN PELVIS W 07/17/2021 09:34 FINDINGS: Gastrointestinal tract: Injection of the gastrostomy injects stomach and proximal duodenum . The tip of the catheter however is distant from the gastric wall by about 16 mm and there is a small tract of contrast at this location. Contrast material in colon without pathologic dilation. Bones/joints: Internal fixation of the left femur, intact as visualized. IMPRESSION: Tip of the gastrostomy catheter appears external to the gastric lumen on these views. Opacification of stomach through a small fistula most likely. CT of the abdomen without contrast could help to confirm positioning if clinically indicated. Dictated and Authenticated by: Angie Mak MD. Ordering:NATHEN Bset MD
--- NOTE | 2022-09-27 19:07 | SCONE_ITS ---
Date of service: 09/27/22 Time of Service: 18:00 Assessment and Plan Assessment and plan (1) S/P gastrostomy tube (G tube) placement, follow-up exam: Status: Acute Assessment and plan: 62-year-old woman who had a PEG tube fell out and it has now been replaced. No issues. No follow-up needed. She can use the PEG tube immediately. History of Present Illness Narrative: The patient is a 62-year-old woman who had a PEG tube gastrostomy placed about a week ago at [facility]. Earlier today she apparently coughed and it fell out. Her and her report that the balloon was not blown up which is how it fell out so easily. The ED has been unsuccessful in getting the tube back in. An x-ray contrast was taken showing an intact tract, but the gastrostomy tube is not all the way within the stomach. PFS All Active Problems (Updated 09/28/22 @ 00:05 by HELDER SRIVASTAVA) S/P gastrostomy tube (G tube) placement, follow-up exam (Acute) NSTEMI (non-ST elevated myocardial infarction) (Acute) Acute cardiogenic pulmonary edema (Acute) Acute metabolic encephalopathy (Acute) Acute respiratory failure with hypoxia (Acute) Bilateral pneumonia (Acute) Status post hip surgery (Acute) Diabetes (Chronic) Farrell's esophagus (Chronic) Anemia (Chronic) Closed fracture of neck of left femur (Acute) s/p Percutaneous Screw Fixation 08/09/22 Hypokalemia (Acute) Constipation (Acute) Drug-induced parkinsonism (Acute) Neuroleptic induced parkinsonism (Acute) Tubular adenoma (Acute ~06/10/21) Hyperplastic colon polyp (Acute ~06/10/21) Farrell's 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 (Acute) Erosive esophagitis (Acute) Esophageal ulcer with bleeding (Acute) Chronic diarrhea (Acute) Black tarry stools (Acute) Leukocytosis (Acute) Pleural effusion (Acute) Ventral hernia (Acute) Depression (Chronic) Bipolar 1 disorder (Acute) Cholelithiasis (Chronic) Medical History Anxiety Chronic iron deficiency anemia Chronic pancreatitis due to acute alcohol intoxication Diabetes mellitus type 2 in obese ETOH abuse History of pilonidal cyst Poorly controlled diabetes mellitus Surgical History History of section History of colonoscopy with polypectomy (~06/10/21) History of esophagogastroduodenoscopy (EGD) (~06/10/21) History of hysterectomy History of tonsillectomy S/P laparoscopic procedure cyst removed from stomach per patient S/P surgical removal of pilonidal cyst Family History Father Hypertension Diabetes Heart disease Social History Smoking/Tobacco Use Status: Former Tobacco Use Quit Date: 02/07/21 Smoking risk assessment performed?: Yes Alcohol Intake: former Drug use: Never Substance use type: does not use Details: pt. 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 Exam Narrative Exam Narrative: General: Nontoxic and comfortable Abdomen: Soft, nondistended and nontender. Gastrostomy site is open and patent. It is hemostatic. I put the gastrostomy tube back in. See procedure note for details. Results Last Vital Signs Temp 97.9 F 09/27/22 14:52 Pulse 98 H 09/27/22 14:52 Resp 18 09/27/22 14:52 BP 108/61 09/27/22 14:52 Pulse Ox 95 09/27/22 14:52 Procedures Other Procedure Description/Findings: Patient gave verbal consent. PEG tube that had fallen out. First I inflated the balloon with air and it is not leaking and patent and holds air adequately. There is no leak. Next I inflated it with water and it holds 3-4 cc of water without any difficulty and again, there is no evidence of leaking. Next, a well?lubricated 12 [place] Mcrae catheter was introduced and passed without difficulty into the stomach through the tract. Next, a 14 [place] Mcrae catheter was introduced and also passed without difficulty into the stomach. Next, a 16 [place] Mcrae catheter (the same size as the PEG tube) was passed. This was also well?lubricated. This met a small/minimal amount of expected resistance but was able to pass easily thus appropriately dilating the tract. This was removed and the 16 [place] PEG tube was passed down the same tract, well?lubricated, and no resistance was met. The patient tolerated the procedure well. I inflated the balloon with 3 cc of saline.
== END 2022-09-27 19:21 | disposition home or self-care (01) ==
PROVIDERS: Emergency Provider Emergency Medicine; PCP Nurse Practitioner Family
DX: K94.23 Gastrostomy malfunction (principal)
CPT/HCPCS: 96372; 99283; 99284; 43762; 74018

== ENCOUNTER 2022-11-16 08:14 | Outpatient (CLI) | payer MEDICAID, SELFPAY ==
--- NOTE | 2022-11-16 08:29 | DI.RAD_ITS ---
Exam(s) XR HIP LT COMPLETE AP PELVIS EXAM: XR HIP LT COMPLETE AP PELVIS CLINICAL HISTORY: s/p im nail. TECHNIQUE: 2D digital imaging was performed. COMPARISON: CR XR HIP LT COMPLETE AP PELVIS from 08/10/2022 FINDINGS: 3 views Again noted are the 3 screws across the left femoral neck fracture site. The joint space is preserve d . However, there appears to be some foreshortening of the ipsilateral femoral neck when compared t o the prior images. No radiographic evidence of osteomyelitis. IMPRESSION: Left femoral neck shortening when compared to the 08/10/2022 images. DATA REPOSITORY: RADIATION DOSE DELIVERED:
== END 2022-11-16 08:15 | disposition home or self-care (01) ==
LOC: DIORS 08:15
PROVIDERS: PCP Nurse Practitioner Family; Referring Provider Nurse Practitioner Family; Visit Provider Student in an Organized Health Care Education/Training Program
DX: Z98.890 Other specified postprocedural states (principal); S72.042D Displaced fracture of base of neck of left femur, subsequent encounter for closed fracture with routine healing; X58.XXXD Exposure to other specified factors, subsequent encounter
CPT/HCPCS: 73502

== ENCOUNTER 2022-11-18 09:36 | Outpatient (CLI) | payer MEDICAID, SELFPAY ==
[2022-11-18 09:51] LABS: BUN 23 mg/dL (7-18); CREATININE 0.8 mg/dL (0.55-1.02); Calcium 10.6 mg/dL (8.5-10.1); Chloride 101 mmol/L (98-107); Estimated GFR 83.26 (mL/min/1.73m2); Glucose 157 mg/dL (74-106); Potassium 4.1 mmol/L (3.5-5.1); Sodium 141 mmol/L (136-145)
[2022-11-18 10:11] LABS: FREE T4 1.41 ng/dL (0.76-1.46); PHOSPHORUS 4.3 mg/dL (2.6-4.7)
[2022-11-18 11:48] LABS: Vitamin D 25 Total 25.9 ng/mL (30-100)
== END 2022-11-18 09:37 | disposition home or self-care (01) ==
LOC: LBO 09:36
PROVIDERS: PCP Nurse Practitioner Family; Visit Provider Internal Medicine Endocrinology, Diabetes & Metabolism
DX: E11.42 Type 2 diabetes mellitus with diabetic polyneuropathy (principal); Z79.4 Long term (current) use of insulin; M81.0 Age-related osteoporosis without current pathological fracture
CPT/HCPCS: 36415; 80048; 82306; 84100; 84439

== ENCOUNTER 2022-11-20 01:19 | Outpatient (CLI) | payer MEDICAID, SELFPAY ==
--- NOTE | 2022-11-20 | DI.US_ITS ---
APPROVED REPORT EXAM: Comprehensive 2D, Doppler, and color-flow Echocardiogram Patient Location: Out-Patient Business Process Architect: Jayy Greene RDMS, RVT Indications: cardiac LV ejection fraction, preop Other Information Study Quality: Adequate. Technically limited study due to inability to position patient. Conclusion Normal left ventricular wall thickness and chamber size. Ejection fraction is 55%. There are no seg mental wall motion abnormalities Normal right ventricular size and systolic function Both atria are normal in size There is no structural or hemodynamically significant valvular disease Estimated right ventricular systolic pressure is 23 mmHg Wall motion Left Ventricle The left ventricle is normal size. Left ventricular systolic function is normal There is normal left ventricular wall thickness. There are no segmental wall motion abnormalities There is no ventricular septal defect visualized. LVEF is 55%. Right Ventricle The right ventricle is normal size. The right ventricular systolic function is normal. The RVSP is 23 .2 mmHg. Atria The left atrium size is normal. The right atrium size is normal. The interatrial septum is intact wit h no evidence for an atrial septal defect. Aortic Valve The aortic valve is normal in structure. Aortic valve is trileaflet. There is no aortic valvular sten osis. No aortic regurgitation is present. Mitral Valve The mitral valve is normal in structure. No evidence of mitral valve stenosis. There is no mitral joann ve regurgitation noted. Tricuspid Valve The tricuspid valve is normal in structure. There is no tricuspid valve stenosis. Trace tricuspid reg urgitation. Pulmonic Valve Pulmonic valve is not well visualized. There is no pulmonic valvular stenosis. There is no pulmonic v alvular regurgitation. Great Vessels The aortic root is normal in size. The ascending aorta is normal in size. Aortic arch is not well vis ualized. IVC is normal in size and collapses >50% with inspiration. Pericardium There is no pericardial effusion. 2D Dimensions IVSD d PLAX 0.44 cm F: 0.6-1.0 LV Vol A2C d MOD 75.9 mL LVPW d PLAX 0.45 cm F: 0.6 - 1.0 LV Vol A4C d MOD 71.9 mL LVID d PLAX 4.44 cm F: 3.8 - 5.2 LA vol/ BSA A4C s A-L 16.9 mL/m2 LVDs 2.65 cm F: 2.2 - 3.5 LA Area A4C s MOD 12.10 cm2 Ao Root d 2.78 cm F: 2.7 - 3.3 LV EF A4C MOD 50.0 % Ao Asc Diam d 2.69 cm F: 2.3 - 3.1 LV EF A2C MOD 50.8 % LV EF Teichholz 70.8 % LV EF Biplane MOD 49.4 % LVEF (Dahl's) 49.37 % F: 54 - 74 SV 37.03 mL LV Volume 60.67 mL F: 46 - 106 SV Index 22.88 mL/m2 LV Volume Index 37.45 mL/m2 F: 29 - 61 LV Vol Biplane MOD 75.0 mL FS 39.95 % M-Mode TAPSE 1.71 cm (M/F) >1.7 LV Diastology MV E' medial 0.112 (>0.07 m/s) E/A Ratio 0.7 LV E/e MED 4.95 (<14) MV E Vmax 0.56 (0.4-1.3 m/s) MV E' lateral 0.109 (>0.1 m/s) MV A Vmax 0.80 (0.4-1.3 m/s) LV E/e LAT 5.10 (<14) MV E/A Ratio 0.68 MV E/E' medial 4.97 MV E/E' lateral 5.12 Aortic Valve LVOT Area 2.85 cm2 AoV Area Vmax 2.16 cm2 LVOT Vmax 0.90 m/s AoV Area/ BSA (Vmax) 1.33 cm2/m2 LVOT Mean Jacky. 0.56 m/s KAREL Mean Jacky. 1.95 cm2 LVOT Peak Grad 3.2 mmHg KAREL Mean Jacky. Index 1.21 cm2/m2 LVOT Mean Grad 1.5 mmHg LVOT VTI 0.179 m LVOT Diam s 1.90 cm AoV Vmax 1.18 m/s Velocity Ratio 0.76 AoV Mean Jacky. 0.81 m/s AoV Peak Grad 5.6 mmHg LVOT SV 50.90 mL AoV Mean Grad 3.0 mmHg AoV VTI 0.219 m AoV Area VTI 2.33 cm2 AoV Area/ BSA (VTI) 1.44 cm/m2 Mitral Valve MV DT 237 (160-240 msec) MV PHT 69 msec MV Area PHT 3.20 cm2 MV VTI 0.184 m MV Area VTI 2.77 (4.0-6.0 cm2) Pulmonary Valve PV Vmax 0.82 (0.5-1.5 m/s) RVOT Peak Gr. 2.03 mmHg PV Peak Grad 2.7 mmHg RVOT Mean Gr. 1.00 mmHg PV Mean Grad 1.4 mmHg RVOT VTI 0.132 m PV VTI 0.150 m RVOT Vmax 0.71 m/s Tricuspid Valve TR Peak Grad 20.2 mmHg TR Vmax 2.25 m/s RA Pressure 3.00 mmHg RVSP (TR) 23.2 mmHg
== END 2022-11-20 01:39 ==
LOC: DI 01:19
PROVIDERS: PCP Nurse Practitioner Family; Visit Provider Nurse Practitioner Family
DX: Z01.818 Encounter for other preprocedural examination (principal)
CPT/HCPCS: 93306

== ENCOUNTER 2022-12-21 13:35 | Outpatient (CLI) | payer MEDICAID, SELFPAY ==
--- NOTE | 2022-12-21 13:30 | RT.EKG_ITS ---
APPROVED REPORT Exam: Resting ECG Reason for Exam: atrial flutter Patient Location: O HR:61 bpm ECG Measurements Heart Rate 61 AXIS NV 157 P 48 QRSd 85 QRS 40 QT 415 T 28 QTc 418 Conclusion Sinus rhythm...normal P axis, V-rate 50- 99 Low voltage, extremity leads...all extremity leads <0.5mV Otherwise normal ECG
== END 2022-12-21 13:36 | disposition home or self-care (01) ==
LOC: DI.CARD 13:36
PROVIDERS: PCP Nurse Practitioner Family; Visit Provider Internal Medicine Cardiovascular Disease
DX: I21.4 Non-ST elevation (NSTEMI) myocardial infarction (principal); I48.92 Unspecified atrial flutter
CPT/HCPCS: 93010

== ENCOUNTER 2023-01-05 17:44 | Outpatient (REF) | payer MEDICAID, SELFPAY ==
[2023-01-05 15:38] LABS: D-Dimer 1284 ng/mlFEU (<500)
[2023-01-05 15:44] LABS: HCT 44.2 % (36.0-46.0); HGB 13.9 g/dL (11.2-15.7); MCH 25.8 pg (27.0-33.0); MCHC 31.4 % (32.0-36.0); MCV 82 fL (80-95); Platelet Count 199 10^3/uL (130-400); RBC 5.39 10^6/uL (3.93-5.22); RDW 18.5 % (11.7-14.6); RDW-SD 53.2 fL; WBC 9.02 10^3/uL (4.4-10.8)
[2023-01-05 16:24] LABS: ALT 19 U/L (14-59); AST 17 U/L (15-37); Albumin 3.2 g/dL (3.4-5.0); Alkaline Phosphatase 117 U/L (46-116); Anion Gap 8.5 mmol/L (3-11); BUN 39 mg/dL (7-18); Bilirubin, Total 0.4 mg/dL (0.2-1.0); CO2 31.5 mmol/L (21.0-32.0); CREATININE 0.9 mg/dL (0.55-1.02); Calcium 10.3 mg/dL (8.5-10.1); Chloride 99 mmol/L (98-107); Estimated GFR 72.28 (mL/min/1.73m2); Glucose 123 mg/dL (74-106); Potassium 4.6 mmol/L (3.5-5.1); Sodium 139 mmol/L (136-145); Total Protein 7.3 g/dL (6.4-8.2)
[2023-01-05 16:59] LABS: Bilirubin Negative (Negative); Blood Trace-intact (Negative); Clarity Cloudy (Clear); Glucose 500 mg/dL (Negative); Ketones Negative (Negative); Leukocyte Esterase Small (Negative); Nitrite Negative (Negative); Specific Gravity 1.015 (1.005-1.025)
[2023-01-05 17:50] LABS: Bacteria Few HPF (Negative); C & S Indicated? No/Sq. Contamination; Crystals Negative HPF (Negative); Epithelial Cells Many HPF (Negative); Mucus Negative (Negative); Other Cells Rare Transitional (Negative); WBC >50 HPF (0-5)
[2023-01-06 19:04] LABS: Parathyroid Hormone,Intact 31 pg/mL (19-88)
== END 2023-01-05 17:45 | disposition home or self-care (01) ==
LOC: NCHCN 17:44
PROVIDERS: PCP Nurse Practitioner Family; Visit Provider Nurse Practitioner Family
DX: R80.9 Proteinuria, unspecified (principal); M81.0 Age-related osteoporosis without current pathological fracture
CPT/HCPCS: 80053; 85027; 81003; 81015; 83970; 85379

== ENCOUNTER → 2023-01-07 00:50 | Outpatient (CLI) | payer MEDICAID, SELFPAY ==
--- NOTE | 2023-01-07 | DI.US_ITS ---
Exam(s) US EXTREMITY VENOUS BI EXAM: US EXTREMITY VENOUS BI CLINICAL HISTORY: EDEMA, R60.9, ELEVATED D DIMER. TECHNIQUE: Bilateral lower extremity venous ultrasound performed using grayscale, color-flow, and sp ectral Doppler analysis. COMPARISON: No exams were available for comparison FINDINGS: The right common femoral, femoral and popliteal veins demonstrate normal compressibility, augmentatio n, and color Doppler. The posterior tibial and peroneal veins are patent. The saphenofemoral junctio n is unremarkable. There is no evidence of a Black's cyst. The soft tissues are unremarkable. The left common femoral, femoral and popliteal veins demonstrate normal compressibility, augmentation , and color Doppler. The posterior tibial and peroneal veins are patent. The saphenofemoral junction is unremarkable. There is no evidence of a Black's cyst. The soft tissues are unremarkable. IMPRESSION: 1. No evidence of a right lower extremity DVT. 2. No evidence of a left lower extremity DVT. DATA REPOSITORY:
== END ==
PROVIDERS: PCP Nurse Practitioner Family; Visit Provider Nurse Practitioner Family
DX: R60.9 Edema, unspecified (principal)
CPT/HCPCS: 93970

== ENCOUNTER 2023-01-18 02:06 | Outpatient (CLI) | payer MEDICAID, SELFPAY ==
[2023-01-18 10:54] LABS: HCT 41.1 % (36.0-46.0); HGB 13.1 g/dL (11.2-15.7); MCH 26.3 pg (27.0-33.0); MCHC 31.9 % (32.0-36.0); MCV 83 fL (80-95); MPV 11.1 fL (8.0-11.0); Platelet Count 203 10^3/uL (130-400); RBC 4.98 10^6/uL (3.93-5.22); RDW 18.5 % (11.7-14.6); RDW-SD 54.8 fL; WBC 7.75 10^3/uL (4.4-10.8)
[2023-01-18 11:20] LABS: Anion Gap 6.6 mmol/L (3-11); BUN 24 mg/dL (7-18); CO2 30.4 mmol/L (21.0-32.0); Calcium 9.8 mg/dL (8.5-10.1); Chloride 101 mmol/L (98-107); Glucose 103 mg/dL (74-106); Potassium 4.3 mmol/L (3.5-5.1); Sodium 138 mmol/L (136-145)
== END 2023-01-18 02:07 | disposition home or self-care (01) ==
LOC: LBO 02:06
PROVIDERS: PCP Nurse Practitioner Family; Visit Provider Student in an Organized Health Care Education/Training Program
DX: S72.002K Fracture of unspecified part of neck of left femur, subsequent encounter for closed fracture with nonunion (principal); Z01.818 Encounter for other preprocedural examination
CPT/HCPCS: 36415; 80048; 85027

== ENCOUNTER 2023-01-19 12:11 | Observation (INO) | payer MEDICAID, SELFPAY ==
[2023-01-19] VITALS (17 sets, daily range): BP systolic 71–126; BP diastolic 38–95; PULSE 66–89; RESP 11–19; TEMP 36–36.4; O2SAT 94–100; BMI 28.1
--- NOTE | 2023-01-19 12:09 | W.ANESPRE ---
General Info Date of Service Date Performed: 01/19/23 Height: 5 ft Weight: 65.317 kg Body Mass Index (BMI): 28.1 Surgical Procedure: Operation Date: 01/19/23 14:20 Proposed Procedure Side Surgeon p Hip Total Hip Anterior, Bimentum,Dual Mobility, Corail Low Left Gt Mills MD Meds Allergies and Home Medications Allergies Allergy/AdvReac Type Severity Reaction Status Date / Time metformin Allergy Unknown Verified 01/19/23 10:57 meperidine AdvReac gi upset Verified 01/19/23 10:57 Home Medication Medication Instructions Recorded insulin aspart U-100 100 unit/mL 5 unit subcut TID 07/16/21 (3 mL) subcutaneous pen (Novolog FlexPen U-100 Insulin aspart) pantoprazole 40 mg tablet,delayed 40 mg PO BID #60 tabs 07/19/21 release (Protonix) sucralfate 1 gram tablet 1 g PO QID 08/08/22 folic acid 1 mg tablet 1 mg PO DAILY #0 tabs 08/10/22 multivitamin (Multiple Vitamins 1 tab PO DAILY #30 tabs 08/10/22 tablet) atorvastatin 80 mg tablet 80 mg PO DAILY 11/18/22 divalproex 500 mg tablet,delayed 500 mg PO BID 11/18/22 release empagliflozin 10 mg tablet 10 mg PO DAILY 11/18/22 (Jardiance) gabapentin 300 mg capsule 300 mg feeding tube TID 11/18/22 insulin glargine 100 unit/mL 10 unit subcut QPM 11/18/22 subcutaneous solution (Lantus U-100 Insulin) melatonin 3 mg capsule 3 mg PO HS PRN 11/18/22 metoprolol succinate 50 mg 50 mg PO DAILY 11/18/22 tablet,extended release 24 hr quetiapine 100 mg tablet 100 mg PO QHS 11/18/22 sacubitril 24 mg-valsartan 26 mg 1 tab feeding tube DAILY 11/18/22 tablet (Entresto) spironolactone 25 mg tablet 12.5 mg PO DAILY 11/18/22 valproic acid (as sodium salt) 250 300 mg PO TID 11/18/22 mg/5 mL oral solution bupropion HCl 100 mg tablet 300 mg PO DAILY 12/16/22 insulin NPH isoph U-100 human 100 See Rx Instructions subcut DAILY 12/16/22 unit/mL (3 mL) subcutaneous pen (Humulin N NPH U-100 Insulin KwikPen) protein pwd PO 12/16/22 acetaminophen 500 mg/15 mL oral 1,000 mg (30 mL) PO Q8H PRN #237 mL 01/19/23 liquid aspirin 81 mg chewable tablet 81 mg PO BID #60 tabs 01/19/23 (Aspirin Childrens) celecoxib 120 mg/4.8 mL (25 mg/mL) 200 mg (8 mL) PO BID postoperative 01/19/23 oral solution inflammation #28.8 mL dexamethasone 0.5 mg/5 mL oral 4 mg (40 mL) PO ONCE #240 mL 01/19/23 solution oxycodone 5 mg/5 mL oral solution 5 mg (5 mL) PO Q6H PRN severe 01/19/23 postoperative pain #500 mL Current Visit Medications: Current Medications Generic Name Dose Route Start Last Admin Trade Name Freq PRN Reason Stop Dose Admin Acetaminophen 1,000 mg 01/19/23 11:00 Acetaminophen Solution 650 Mg/20.3 Ml Cup UD 01/19/23 16:00 PREOP LAZARUS Celecoxib 400 mg 01/19/23 06:00 Celecoxib 200 Mg Cap PO 01/19/23 16:00 PREOP LAZARUS Tranexamic Acid 1,000 mg/ 60 mls @ 360 mls/hr 01/19/23 06:00 Sodium Chloride IV 01/19/23 16:00 PREOP LAZARUS Ringer's Solution 1,000 mls @ 80 mls/hr 01/19/23 06:00 IV 02/17/23 23:59 INFUSION LAZARUS Cefazolin Sodium/Dextrose 2 gm in 50 mls @ 100 mls/hr 01/19/23 06:00 Ancef Duplex IVPB 02/17/23 23:59 PREOP [facility] IV Miscellaneous Supplies 1 each 01/19/23 06:00 Iv Access IV 02/17/23 23:59 DIRECTED LAZARUS Sodium Chloride 0 ml 01/19/23 06:00 Normal Saline Flush 10 Ml Syr IV 02/17/23 23:59 PRN PRN Sodium Chloride 0 ml 01/19/23 06:00 Normal Saline 10 Ml Vial IJ 02/17/23 23:59 DIRECTED PRN Sterile Water 0 ml 01/19/23 06:00 Water,Injection,Sterile 10 Ml Vial IJ 02/17/23 23:59 DIRECTED PRN PFS Active Problems Active Problems: Problem Status Onset Code Depression F32.9 Bipolar 1 disorder F31.9 Diabetes E11.9 Atrial flutter I48.92 Cholelithiasis K80.20 Ventral hernia K43.9 Leukocytosis D72.829 Pleural effusion J90 Black tarry stools K92.1 Chronic diarrhea K52.9 Farrell's esophagus K22.70 Esophageal ulcer with bleeding K22.11 Erosive esophagitis K22.10 Farrell's 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 K22.70 Hyperplastic colon polyp ~06/10/21 K63.5 Tubular adenoma ~06/10/21 D36.9 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 states she has never had an issues with any subtances Anxiety Bilateral pneumonia Chronic iron deficiency anemia Chronic pancreatitis due to acute alcohol intoxication Constipation Diabetes mellitus type 2 in obese ETOH abuse History of pilonidal cyst Hypokalemia NSTEMI (non-ST elevated myocardial infarction) Per pt. states she did not have a heart attack Poorly controlled diabetes mellitus Stress-induced cardiomyopathy [place] [facility] [place], EF 25%, has since recovered RH Medical History Comments:: LH tremor. 08:[address] Purcell order Surgical History Surgical History History of section History of colonoscopy with polypectomy (~06/10/21) History of esophagogastroduodenoscopy (EGD) (~06/10/21) History of hysterectomy History of tonsillectomy S/P laparoscopic procedure cyst removed from stomach per patient S/P surgical removal of pilonidal cyst Tobacco Smoking/Tobacco Use Status: Former Tobacco Use Alcohol Alcohol Intake: never Substance Use Substance use: Never Substance use type: does not use Details: pt. denies history of ETOH abuse Vital Signs and Lab Results Vital Signs Most Recent Vital Signs in EMR: Most Recent Vital Signs Temp Pulse Resp BP Pulse Ox 36.2 C L 66 16 116/56 L 99 01/19/23 10:58 01/19/23 10:58 01/19/23 10:58 01/19/23 10:58 01/19/23 10:58 Point of Care Results Point of Care Results: Finger Stick Blood Glucose 105 01/19/23 10:51 Lab Results Blood Type / Crossmatch: No Data to Display Complete Blood Count: White Blood Count 7.75 10^3/uL (4.4-10.8) 01/18/23 10:35 Red Blood Count 4.98 10^6/uL (3.93-5.22) 01/18/23 10:35 Hemoglobin 13.1 g/dL (11.2-15.7) 01/18/23 10:35 Hematocrit 41.1 % (36.0-46.0) 01/18/23 10:35 Platelet Count 203 10^3/uL (130-400) 01/18/23 10:35 Complete Metabolic Panel: Sodium 138 mmol/L (136-145) 01/18/23 10:35 Potassium 4.3 mmol/L (3.5-5.1) 01/18/23 10:35 Chloride 101 mmol/L (98-107) 01/18/23 10:35 Carbon Dioxide 30.4 mmol/L (21.0-32.0) 01/18/23 10:35 BUN 24 mg/dL (7-18) H 01/18/23 10:35 Creatinine 1.0 mg/dL (0.55-1.02) 01/18/23 10:35 Est GFR (CKD-EPI 2020) 63.70 (mL/min/1.73m2) 01/18/23 10:35 Calcium 9.8 mg/dL (8.5-10.1) 01/18/23 10:35 Albumin 3.2 g/dL (3.4-5.0) L 01/05/23 11:20 Glucose 103 mg/dL (74-106) 01/18/23 10:35 Liver Function Panel: Alanine Aminotransferase (ALT/SGPT) 19 U/L (14-59) 01/05/23 11:20 Aspartate Amino Transf (AST/SGOT) 17 U/L (15-37) 01/05/23 11:20 Coagulation Panel: D-Dimer 1284 ng/mlFEU (<500) H 01/05/23 11:20 Cardiac Panel: No Data to Display Arterial Blood Gas: No Data to Display Venous Blood Gas: No Data to Display Pancreas Panel: No Data to Display Thyroid Panel: No Data to Display Infectious Disease: No Data to Display Blood Cultures: No Data to Display Toxicology Panel: No Data to Display Imaging and Studies Imaging and Studies Study information below may be from another EMR and interpreted by another provider. Please see original notes in EMR for more complete details. EKG Summary: DATE/TIME OF SERVICE: 08/08/22 1153 : 1960ERFORMING LOCATION: [place] APPROVED REPORT Exam: Resting ECG Reason for Exam: Fall Patient Location: HR:111 bpm ECG Measurements Heart Rate 111 AXIS CA 176 P 73 QRSd 84 QRS 85 QT 346 T-64 QTc 471 Conclusion Sinus tachycardia...rate> 99 Echocardiogram Summary: Date of Exam: 03/04/21Sex: F Admission Date: 03/03/21 : 1960 Age: 60 APPROVED REPORT EXAM: Comprehensive 2D, Doppler, and color-flow Echocardiogram Patient Location: In-Patient Room/Bed: AQS086 Sales Support Technician: Marilee Chanel RDCS (AE) Indications: New onset atrial flutter Other Information Study Quality: Adequate. Technically limited study due to inability to position patient, uncooperative patient, exam done bedside. Conclusion Normal left ventricular wall thickness and chamber size. Estimated ejection fraction is 60 to 65%. There are no segmental wall motion abnormalities Normal right ventricular size and systolic function Both atria are normal in size There are no structural or hemodynamically significant valvular abnormalities Normal estimated right ventricular systolic pressure 21 mmHg Anesthesia Assessment and Plan Anesthesia History Personal History: No History of Anesthesia Complications Family History: No Family History of Anesthesia Complications Exercise Tolerance Exercise Tolerance: Metabolic Equivalents<4 Pertinent Negatives Pertinent Negatives: No Symptoms of GERD, No Major Cardiovascular Symptoms or Complaints and No Major Pulmonary Symptoms or Complaints Cardiac & Pulmonary Exam Cardiac Exam: Normal S1/S2 Heart Sounds Pulmonary Exam: Clear Bilateral Breath Sounds Implantable Cardiac Device Does patient have a Pacemaker or an ICD?: No Airway Exam Known Difficult Airway: No Mallampati Class: 2 Mouth Opening: Normal (> 3cm) Thyromental Distance: Greater than 3 cm Neck Range of Motion: Full ROM Neck Circumference: Normal Teeth Condition: Normal Dentition (none loose per patient) ASA Classification ASA Score: ASA 3 Emergency Case?: No NPO Status NPO Status: NPO Clears >2 hours, Solids >8 hours Anesthesia Plan Resuscitation Status: Full Code Anesthesia Technique: Spinal Anesthesia Airway Planned: Natural Airway Monitors Used: Standard Monitors Preoperative Comments:: Blood sugar 105
[2023-01-19] MEDS: Lactated Ringers 1,000 ML 80 ML IV ×2 (12:10→17:36)
--- NOTE | 2023-01-19 12:11 | W.PREOPHP ---
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 She is now doing much better after she had an episode of altered mental status and hypoxia requiring intensive care transfer. She has continued pain with the left hip with all motions. She has tried to continue to ambulate but does so with pain. Given the failure of the left hip fracture I recommended hip replacement. This would also be accompanied with hardware removal. I reviewed the surgery once again with her and her . I discussed the risk of the procedure to include bleeding, infection, pain, stiffness, fracture, damage to nerves and vessels, damage to muscle and tendons, need for repeat procedures, blood clot. Despite these risk, she elects to proceed. Qualifiers: Encounter type: subsequent encounter Fracture healing: with nonunion Qualified Code(s): S72.002K - Fracture of unspecified part of neck of left femur, subsequent encounter for closed fracture with nonunion History of Present Illness History of Present Illness Chief Complaint: Left Femoral Neck Nonunion Narrative: Jennifer is a 62-year-old who suffered a left hip fracture. This was fixed with cannulated screws. Unfortunately she suffered an episode of unresponsiveness which required transfer to [facility] where she was in the ICU for an extended period of time. She has responded appropriate but has continued to have left hip pain. 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 It has shortened and displaced and therefore I did offer surgical fixation with hip replacement. I previously reviewed this with her in the office. She has now had clearance from cardiology and pulmonology. She currently denies any chest pain or shortness of breath. She has had no fever no chills. Review of Systems All systems reviewed & are unremarkable except as noted in HPI and below PFSH All Active Problems Depression (Chronic) Bipolar 1 disorder (Acute) Diabetes (Chronic) Cholelithiasis (Chronic) Ventral hernia (Acute) Leukocytosis (Acute) Pleural effusion (Acute) Black tarry stools (Acute) Chronic diarrhea (Acute) Farrell's esophagus (Chronic) Esophageal ulcer with bleeding (Acute) Erosive esophagitis (Acute) Farrell's 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 (Acute) Hyperplastic colon polyp (Acute ~06/10/21) Tubular adenoma (Acute ~06/10/21) Neuroleptic induced parkinsonism (Acute) Drug-induced parkinsonism (Acute) Closed fracture of neck of left femur (Acute) s/p Percutaneous Screw Fixation 08/09/22 Anemia (Chronic) Status post hip surgery (Acute) H/O: pneumonia (Acute) Abnormal chest xray (Acute) Pre-op evaluation (Acute) Medical History Acute cardiogenic pulmonary edema Acute metabolic encephalopathy Acute respiratory failure with hypoxia Alcohol abuse Per pt. states she has never had an issues with any subtances Anxiety Bilateral pneumonia Chronic iron deficiency anemia Chronic pancreatitis due to acute alcohol intoxication Constipation Diabetes mellitus type 2 in obese ETOH abuse History of pilonidal cyst Hypokalemia NSTEMI (non-ST elevated myocardial infarction) Per pt. states she did not have a heart attack Poorly controlled diabetes mellitus Stress-induced cardiomyopathy [place] [facility] [place], EF 25%, has since recovered RH Surgical History History of section History of colonoscopy with polypectomy (~06/10/21) History of esophagogastroduodenoscopy (EGD) (~06/10/21) History of hysterectomy History of tonsillectomy S/P laparoscopic procedure cyst removed from stomach per patient S/P surgical removal of pilonidal cyst Family History Father Hypertension Diabetes Heart disease Social History Smoking/Tobacco Use Status: Former Tobacco Use Quit Date: 02/07/21 Smoking risk assessment performed?: Yes Alcohol Intake: never Drug use: Never Substance use type: does not use Details: pt. 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 Meds Allergies and Home Medications Allergies Allergy/AdvReac Type Severity Reaction Status Date / Time metformin Allergy Unknown Verified 01/19/23 10:57 meperidine AdvReac gi upset Verified 01/19/23 10:57 Home Medications Medication Instructions Recorded Confirmed Type insulin aspart U-100 100 unit/mL 5 unit subcut TID 07/16/21 01/19/23 History (3 mL) subcutaneous pen (Novolog FlexPen U-100 Insulin aspart) pantoprazole 40 mg tablet,delayed 40 mg PO BID #60 tabs 07/19/21 01/19/23 Rx release (Protonix) sucralfate 1 gram tablet 1 g PO QID 08/08/22 01/19/23 History folic acid 1 mg tablet 1 mg PO DAILY #0 tabs 08/10/22 01/19/23 Rx multivitamin (Multiple Vitamins 1 tab PO DAILY #30 tabs 08/10/22 01/19/23 Rx tablet) atorvastatin 80 mg tablet 80 mg PO DAILY 11/18/22 01/19/23 History divalproex 500 mg tablet,delayed 500 mg PO BID 11/18/22 01/19/23 History release empagliflozin 10 mg tablet 10 mg PO DAILY 11/18/22 01/19/23 History (Jardiance) gabapentin 300 mg capsule 300 mg feeding tube TID 11/18/22 01/19/23 History insulin glargine 100 unit/mL 10 unit subcut QPM 11/18/22 01/19/23 History subcutaneous solution (Lantus U-100 Insulin) melatonin 3 mg capsule 3 mg PO HS PRN 11/18/22 01/19/23 History metoprolol succinate 50 mg 50 mg PO DAILY 11/18/22 01/19/23 History tablet,extended release 24 hr quetiapine 100 mg tablet 100 mg PO QHS 11/18/22 01/19/23 History sacubitril 24 mg-valsartan 26 mg 1 tab feeding tube DAILY 11/18/22 01/19/23 History tablet (Entresto) spironolactone 25 mg tablet 12.5 mg PO DAILY 11/18/22 01/19/23 History valproic acid (as sodium salt) 250 300 mg PO TID 11/18/22 01/19/23 History mg/5 mL oral solution bupropion HCl 100 mg tablet 300 mg PO DAILY 12/16/22 01/19/23 History insulin NPH isoph U-100 human 100 See Rx Instructions subcut DAILY 12/16/22 01/19/23 History unit/mL (3 mL) subcutaneous pen (Humulin N NPH U-100 Insulin KwikPen) protein pwd PO 12/16/22 01/08/23 History acetaminophen 500 mg/15 mL oral 1,000 mg (30 mL) PO Q8H PRN #237 mL 01/19/23 Rx liquid aspirin 81 mg chewable tablet 81 mg PO BID #60 tabs 01/19/23 Rx (Aspirin Childrens) celecoxib 120 mg/4.8 mL (25 mg/mL) 200 mg (8 mL) PO BID postoperative 01/19/23 Rx oral solution inflammation #28.8 mL dexamethasone 0.5 mg/5 mL oral 4 mg (40 mL) PO ONCE #240 mL 01/19/23 Rx solution oxycodone 5 mg/5 mL oral solution 5 mg (5 mL) PO Q6H PRN severe 01/19/23 Rx postoperative pain #500 mL Exam Narrative Exam Narrative: Jennifer is in no acute distress. Alert and orient x3. Left lower extremity is notably shortened. Well-healed incisions about the left hip. No signs of infection. Dry eschar seen over the mid tibia on the left side without any signs of infection. Resp Effort & Inspection: normal respiratory effort and able to speak in complete sentences Cardio Rate: regular rate Rhythm: regular rhythm Results Last Vital Signs Temp 36.2 C L 01/19/23 10:58 Pulse 66 01/19/23 10:58 Resp 16 01/19/23 10:58 BP 116/56 L 01/19/23 10:58 Pulse Ox 99 01/19/23 10:58
[2023-01-19] MEDS: ceFAZolin 2 GM/50 ML BAG IVPB (12:48)
--- NOTE | 2023-01-19 13:36 | W.ANESVAS ---
Peripheral IV Placement Date Performed: 01/19/23 Procedure Time: 12:05 Requesting Provider: Marilyn Post Procedure Location: Day Surgery Unit Sedation Given (Indicate Dose Given): No Sedation given Patient Mental Status: Awake Laterality: Left Insertion Site: Brachial Size & Type: 20 ga. Dressing: IV Dressing Placed and Statlock Applied Ultrasound: Sterile probe cover and gel used Ultrasound Image Saved?: No Number of Attempts (See previous attempts in note section): 1 (2 attempts by RN) Procedure Tolerated: No Complications Procedure Outcome: Successful Performed By: Marilyn Post
--- NOTE | 2023-01-19 14:06 | DI.RAD_ITS ---
Exam(s) XR HIP LT IN OR EXAM: XR HIP LT IN OR CLINICAL HISTORY: sp left hip fracture nedding total. TECHNIQUE: 2D and realtime digital imaging was performed. COMPARISON: No exams were available for comparison FINDINGS: Hard copy images show placement of a left hip prosthesis. The alignment appears satisfactory. Please see procedure note for details. Fluoro time: 61.5seconds RADIATION DOSE DELIVERED: Ka,r=4.84 mGy
[2023-01-19] MEDS: ePHEDrine 25 MG/5 ML Syringe IVP ×3 (14:48→15:08)
--- NOTE | 2023-01-19 15:43 | W.ANESPOSTOP ---
Postoperative Evaluation Date, Time and Location Date Performed: 01/19/23 Time Performed: 15:43 Patient Location: PACU Vital Signs Most Recent Imported Vital Signs: Most Recent Vital Signs Temp Pulse Resp BP Pulse Ox 36.1 C L 72 13 100/49 L 96 01/19/23 15:30 01/19/23 15:30 01/19/23 15:30 01/19/23 15:30 01/19/23 15:30 Pain Score Most Recent Pain Score: Most Recent Pain Score Pain Level 6 01/19/23 15:30 Assessment Mental Status: Awake (Alert & Oriented to Patient Baseline) Airway and Respiratory Function: Patent airway with normal (patient baseline) respiratory exam Cardiovascular Function: Hemodynamically Stable and Receiving care as an inpatient Hydration Status: Adequately Hydrated Nausea & Vomiting: No Nausea or Vomiting Pain: Pain is Moderate or Severe Postoperative Pain Management: Pain being addressed with medication Peripheral Nerve Block: Patient did not receive a nerve block
[2023-01-19] MEDS: ACETAMINOPHEN 1,000 MG/100 ML BTL 400 MG IVPB (15:50)
[2023-01-19] MEDS: Ketorolac 15 MG/ML VIAL IVP ×2 (16:04→22:02)
--- NOTE | 2023-01-19 17:18 | PT.INNT ---
PT Notes Visit Reasons: Left hip DJD Patient still in PACU as of 5:[address] Mills, recovery is taking longer than expected. Will plan on seeing patient tomorrow whenever appropriate.
[2023-01-19] MEDS: Normal Saline Flush 10 ML SYR IV (17:36)
[2023-01-19] MEDS: ceFAZolin 1 GM/50 ML BAG IVPB (18:25)
[2023-01-19] MEDS: oxyCODONE 5 MG/5 ML CUP JT (18:27)
--- NOTE | 2023-01-19 21:36 | ROE_ITS ---
Date of service: 01/19/23 Time of Service: 14:30 Operative Note Operative Note DATE OF PROCEDURE: 01/19/23 PRE-OP DIAGNOSIS: Left Femoral Neck Nonunion POST-OP DIAGNOSIS: same PROCEDURE: Left Anterior Total Hip Arthroplasty with hardware removal from a separate incision SURGEON: Gt Mills PATIENT PORTAL REPRESENTATIVE: Merly Mead ANESTHESIA TYPE: Spinal Refer to Anesthesia Record ESTIMATED BLOOD LOSS: 300 PATHOLOGY: none sent TOURNIQUET TIME: 0 COMPLICATIONS: None Patient was transported to: PACU Patient's condition: stable Implants: 1. Depuy Bimentum Dual Mobility Component, 47mm 2. Depuy Bimentum Dual Mobility Liner, [id number] 3. Depuy Corail Short Neck Collared Femoral Stem, Size 11 4. Depuy Altrx Ceramic Femoral Head, Size 28+5mm Indications: I have seen Jennifer in clinic for for hip pain from failure of fixation of a left femoral neck fracture, confirmed with radiographic findings. Jennifer has exhausted nonoperative methods and was having significant limitations in daily function and desired better function and less pain. I discussed the technical details of a hip replacement. I explained the risks of the procedure to include, but not limited to, bleeding, infection, pain, stiffness, fracture, damage to nerves and vessels, damage to muscles and tendons, loosening, instability, leg length inequality, need for repeat procedure, blood clot and cardiopulmonary demise. Despite these risks, she elected to proceed. Findings: There were no signs of healing of the left femoral neck fracture. The screws were removed without difficulty. There was a large defect of the superior acetabulum and the bone overall was quite soft adjacent to the acetabulum. Procedure Description: Jennifer was greeted in the preoperative holding area where the correct side was identified and marked. The consent was reviewed with the patient and signed. The history and physical was updated. All questions were answered. She was taken back to the operating room. A spinal anesthestic was then administered. The feet were wrapped with cast padding and Coban and then placed into the boot liners and then into the boots. Care was taken to protect the s kin and make sure the heels were fully down and the boots were stable. The patient was then positioned onto the HANA table. Both legs were held in a neutral position. SCDs were applied. The patient was then slid down onto a peroneal post. Prophylactic antibiotics in the form of Cefazolin were administered. 1g of Tranxemic Acid was given intravenously within 30 minutes of incision. The left leg was then prepped with Chloraprep and draped in a standard fashion. A second prep with Chloraprep was performed prior to placement of a shower-curtain type drape with Iodine impregnated skin pro tection. A timeout to confirm correct identity, side and site, procedure, allergies, anesthesia, and medical concerns was performed. A lateral based incision was made utilizing the previous incision from her screw fixation procedure. This was incised through the skin and the IT band. Using the wire from the 7.3 mm cannulated screw system and there was able to identify the screws and threaded screws, utilized the cannulated screws are to remove them. All 3 screws were removed without difficulty. This wound was then thoroughly irrigated. The IT band deep tissues were closed with 0 Vicryl. Attention was then turned to the hip replacement. An obliquely oriented incision was made starting lateral to the ASIS and running distal over the Tensor Fascia Sabra (TFL) muscle belly toward the fibular head, approximately 10cm. The skin and soft tissue was dissected sharply, through Charleen?s fascia, and to the fascia of the TFL. With the fascia and superior border of the IT band identified, the fascia was incised with a new knife just above any perforators from the IT band. The TFL muscle belly was bluntly dissected away from the fascia and moved laterally. The fat between TFL and rectus was identified to ensure the dissection was not within the TFL. Blunt dissection created space between abductors and the capsule and retractor was placed over the lateral femoral neck. The fibers of the rectus femoris tendon were identified and these were freed from the anterior capsule. A second cobra retractor was placed around the medial femoral neck. The TFL was further retracted laterally to show the deep fascia. Careful dissection through this layer identified three main crossing vessels of the lateral femoral circumflex. These were cauterized in multiple locations and then cut without any noticeable bleeding. The TFL was further released bluntly from the deep fascia to expose anterior hip capsule and fat The Jai orthopaedic retractor was then placed beneath the TFL and against sartorius and medial soft tissues to protect and retract the soft tissues. A T-capsulotomy was then performed starting at the superior lateral acetabulum and moving distally to the intertrochanteric ridge. These capsular flaps were tagged with a No. 1 Ethibond and elevated from within. The capsular flaps were released to the shoulder of the lateral neck and to the lesser trochanter to give excellent visualization of the proximal femur. There is notable deformity and loose pieces of bone and cartilage within the hip. The fracture site was clearly not healed. A neck osteotomy was performed using an oscillating saw based on preoperative templates. This cut started in the shoulder and of the lateral neck and exited medially. The saw was at all times directed medially to avoid injury to the greater trochanter. Gross traction was applied to the leg and the osteotomy opened. The femoral head was removed with a corkscrew, making sure to protect the TFL on its exit. Traction was released after head removal. This was measured on the back table to determine the starting reamer size. Portions of the rectus obscuring visualization were minimally elevated off the superior acetabulum. An anterior retractor was placed over the anterior wall between capsule and labrum and attached to the Gripper retraction system. The femur was rotated to 90 degrees and medial capsule was fully released until the lesser trochanter was palpable and visible; the femur was returned to 30 degrees. A posterior retractor was placed similarly between capsule and labrum. This provided excellent visualization. The contents of the cotyloid fossa were removed with electrocautery and the labrum was removed with a knife. There was a defect seen of the superior acetabulum. Acetabular reaming began with a 43mm reamer. This first reaming was directed anterior to posterior and medial to get down to the true floor. This was inspected and reamed until the true floor was reached. The anterior retractor was then released and entry and exit was provided by traction on the capsular flaps. I then reamed sequentially up to a 47mm reamer where good fit was obtained. The larger reamers were oriented based on anatomical reference of the anterior and lateral pope to ensure proper abduction and anteversion. Positioning and size was confirmed with the fluoroscopy. A 47mm Bimentum Dual Mobility acetabular component was selected. The deep tissues were irrigated. The acetabular component was then impacted in a position of about 40-45 degrees of abduction and 15-20 degrees of anteversion, using the patient?s anatomy as the ultimate landmark. Fluoroscopy was used to confirm this. There was excellent security compliance specialist of the acetabular component and the inserting handle was removed. A portion of the gavin-articular cocktail was then injected around the acetabulum into the capsule and periosteum. This cocktail consisted of 123mg of Ropivacaine, 0.25mg of Epinephrine, 0.04mg of Clonidine, and 15mg of Ketorolac, diluted to 50cc. The leg was rotated to 120 degrees. Any remaining medial capsule was released until the lesser trochanter was easily palpable. A retractor was placed medially. The lateral capsule was further released into the shoulder to allow access to the greater trochanter. A Sandy retractor was placed over the greater trochanter which allowed the trochanter to flip in front of the capsule for excellent exposure. The leg was brought down into maximal extension and 20 degrees of adduction while ensuring there was no impingement on the acetabulum. Any remnant capsule within the trochanter was released. Piriformis and obturator externis were identified and protected. There was excellent access to the proximal femur. The lateral neck remnant was removed with a rongeur. A blunt canal probe was used to identify the canal and trajectory for later broaching. A box osteotome initiated the broach course. A small curved rasp and a curved curette were used to work laterally. Broaching then began with a size 8 Corail broach. This was inserted manually around the trochanter and into the canal before mallet blows. The broach was seated to a few millimeters below the cut level based on the neck cut and the preoperative template. Sequential broaching was continued until a tight fit was obtained with good rotational control of the femur. A trial short neck was inserted along with a +5 trial head. The leg was brought out of extension and adduction and then reduced with traction and internal rotation. The leg was stable anteriorly in a position of 30 degrees of extension and 90 degrees of external rotation. Fluoroscopy was used to ensure there was no fracture and the stem was seated well. Leg lengths were checked with an AP pelvis and pelvic reference points. Once content with the desired offset and leg lengths, the leg was brought back into extension, external rotation and adduction. The periosteum and surrounding tissue was injected with remaining portion of the gavin-articular cocktail. The proximal femur was irrigated as well as the deep tissues. The Bolt HRuy Corail short neck collared stem, size 11, was then manually inserted into the proximal femur making sure to control rotation. It was then malleted into position with light blows, giving breaks to allow bone expansion and decrease risk of fracture. The selected Depuy Altrx Ceramic Head, size 28+5mm was then secured into the Bimentum 47x28 dual mobility liner. This was then placed onto the clean and dry trunnion and secured with impaction onto the tapered fit. The leg was brought back out of extension and adduction and reduced with traction and internal rotation. Stability was confirmed with no shuck at 90 degrees of external rotation and 30 degrees of extension. No impingement through range of motion arc. Final x-ray images were obtained with fluoroscopy to confirm adequate positioning and no intraoperative fracture. The deep tissues were thoroughly irrigated with Surgiphor, betadine solution. This was allowed to sit in the wound for 3 minutes before being thoroughly irrigated out with normal saline. The capsule was then reapproximated with the previously placed Ethibond sutures. The TFL fascia was finally closed with a No. 2 Stratafix, barbed suture. Deep tissues were then reapproximated with 0 Vicryl and a running 2-0 Vicryl. The skin was closed with a running 4-0 Monocryl in a subcuticular fashion. This was reinforced with skin glue. A Mepilex silver dressing was applied. At the end of the case, all counts were correct. Jennifer was transferred to the hospital bed without difficulty and suffering no apparent complication. She has a good prognosis. Physical therapy will start today and without restrictions, weight-bearing as tolerated. Aspirin 81mg BID will be used for DVT prophylaxis.
[2023-01-19] MEDS: Sucralfate 1 GM TAB PO (21:46)
[2023-01-19] MEDS: Gabapentin 300 MG CAP 900 MG NG (21:46)
[2023-01-19] MEDS: Melatonin 3 MG TAB PO (22:01)
[2023-01-19] MEDS: QUEtiapine 100 MG TAB JT (22:01)
[2023-01-19] MEDS: Insulin Glargine 300 UNITS/3 ML PEN 10 UNITS SC (22:14)
[2023-01-20] MEDS: ceFAZolin 1 GM/50 ML BAG IVPB ×2 (01:47→10:02)
[2023-01-20 03:30] VITALS: BP 74/60; PULSE 63; RESP 18; TEMP 36.4; O2SAT 94
[2023-01-20] MEDS: Ketorolac 15 MG/ML VIAL IVP (04:14)
[2023-01-20] MEDS: Lactated Ringers 1,000 ML 500 ML IV (06:34)
[2023-01-20 06:48] LABS: HCT 30.1 % (36.0-46.0); HGB 9.5 g/dL (11.2-15.7); MCH 26.1 pg (27.0-33.0); MCHC 31.6 % (32.0-36.0); MCV 83 fL (80-95); MPV 11.6 fL (8.0-11.0); Platelet Count 154 10^3/uL (130-400); RBC 3.64 10^6/uL (3.93-5.22); RDW 18.2 % (11.7-14.6); RDW-SD 54.9 fL; WBC 9.62 10^3/uL (4.4-10.8)
[2023-01-20 07:11] LABS: Anion Gap 5.3 mmol/L (3-11); BUN 34 mg/dL (7-18); CO2 29.7 mmol/L (21.0-32.0); CREATININE 1.5 mg/dL (0.55-1.02); Calcium 9.4 mg/dL (8.5-10.1); Chloride 102 mmol/L (98-107); Estimated GFR 39.16 (mL/min/1.73m2); Glucose 199 mg/dL (74-106); Potassium 5.2 mmol/L (3.5-5.1); Sodium 137 mmol/L (136-145)
--- NOTE | 2023-01-20 07:42 | W.PM.DS.N ---
Date of service: 01/20/23 Time of Service: 09:40 DS: Diagnosis Discharge Diagnosis (1) 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: Status: Acute Discharge Plan Disposition Patient Disposition: Home Condition: Good Discharge Details Reason For Visit: Left hip DJD Admit Date/Time: 01/19/23 12:11 Admit Provider: Gt Mills Attending Provider: Gt Mills Primary Care Provider: Ana Gillespie Hospital Course Hospital Course: Patient was admitted to the medical/surgical floor following the procedure. The surgery was tolerated well without any notable medical, surgical, or anesthetic complications. Mobilization began postoperatively. She was voiding spontaneously. Vitals were stable although with low blood pressures which is her baseline. Physical therapy worked with the patient and was cleared for discharge home. The patient and her declined any home health services. There were no acute medical issues. Pain was controlled on oral regimen. Home Meds and New Rx's Prescriptions: New acetaminophen 500 mg/15 mL liquid 1,000 mg PO Q8H PRNQty: 237 2RF aspirin [Aspirin Childrens] 81 mg tablet,chewable 81 mg PO BID Qty: 60 0RF Rx Instructions: via g-tube dexamethasone 0.5 mg/5 mL solution 4 mg PO ONCE Qty: 240 0RF Rx Instructions: Take 4 mg (40 mL) once a day for first two days postoperatively ibuprofen 100 mg/5 mL suspension 600 mg PO Q8H Qty: 473 0RF oxycodone 5 mg/5 mL solution 5 mg PO Q6H PRN (Reason: pain) Qty: 90 0RF Rx Instructions: 2.5-5mL per G-tube for pain Continued bupropion HCl 100 mg tablet 300 mg PO DAILY Patient Comments: via g-tube, per pcp ov notes 12/09/22 RH Humulin N NPH Insulin KwikPen 100 unit/mL (3 mL) insulin pen See Rx Instructions SUBCUT DAILY Rx Instructions: 17 units subcutaneously at start of tube feet and again 6 hrs later 12/16/22 per PCP notes RH protein Powder PO insulin aspart U-100 [Novolog FlexPen U-100 Insulin] 100 unit/mL (3 mL) insulin pen 5 unit subcut TID Rx Instructions: Inject 1 unit subcutaneously twice a day as directed, inject 2 units for BG 151-250, 3 units for BG 251-300, 4 units for BG 301-350 gabapentin 300 mg capsule 900 mg feeding tube TID Patient Comments: via g-tube Entresto 24-26 mg tablet 1 tab feeding tube DAILY Patient Comments: via g-tube Jardiance 10 mg tablet 10 mg PO DAILY insulin glargine [Lantus U-100 Insulin] 100 unit/mL solution 10 unit subcut QPM quetiapine 100 mg tablet 100 mg PO QHS atorvastatin 80 mg tablet 80 mg PO DAILY valproic acid (as sodium salt) 250 mg/5 mL solution 300 mg PO TID metoprolol succinate 50 mg tablet extended release 24 hr 50 mg PO DAILY spironolactone 25 mg tablet 12.5 mg PO DAILY melatonin 3 mg capsule 3 mg PO HS PRN Patient Comments: via g-tube sucralfate 1 gram tablet 1 g PO QID Patient Comments: TAKE ONE TABLET BY MOUTH FOUR TIMES A DAY folic acid 1 mg Tablet 1 mg PO DAILY Qty: 0 0RF multivitamin [Multiple Vitamins] Tablet 1 tab PO DAILY Qty: 30 0RF pantoprazole [Protonix] 40 mg tablet,delayed release (DR/EC) 40 mg PO BID Qty: 60 0RF Discontinued acetaminophen 500 mg/15 mL liquid 1,000 mg PO BID PRN Discharge Instructions Additional Instructions: Total Hip Discharge Instructions Activity: The most important activity is to walk. You should try to take short walks a few times a day. You have no restrictions on movement or positioning, but do not try to force what you do. You will find some stiffness and weakness with hip flexion (lifting your knee). Do not try to strengthen this too early, continue to practice walking and stairs and this will come. - Outpatient physical therapy can be helpful to help return you to a normal gait and improve your flexibility and strength. This can start around 2 weeks. For some patients, it?s not necessary. Usually this is determined at the time of discharge or at the first post-operative visit. - You should wear the JONAH hose on both legs for 2 weeks. Dressing: Keep the surgical dressing in place for at least one week. After the first week it may be removed and replace with light gauze and tape or nothing. It may get wet after 3 days but avoid soaking the dressing. If it gets wet, just lightly pat dry. It is important to always keep some gauze between skin folds, especially when you are sitting. Spend some time with the wound exposed when you are lying flat as the incision does wrinkle onto itself. Medications: - You should take Tylenol and an anti-inflammatory Ibuprofen as your primary pain control medications. - You have been prescribed a stronger pain medication Oxycodone for breakthrough pain, take as needed as prescribed. - You have also been prescribed Decadron to help with post-operative nausea and pain. You will take this for two days starting tomorrow. - You will be taking Aspirin 81mg twice a day for DVT prevention unless instructed otherwise. - If you have constipation you should take Colace or Miralax (both [id number]). It takes most people 3-4 days to have a bowel movement. Follow-up: 2 weeks If you have any acute concerns or questions, please do not hesitate to contact the office at [phone]. You may contact Dr. Mills with any questions after hours through the hospital at [phone] or on his cell phone at [phone]. Referrals: Gt Mills MD [ [facility] STAFF PHYSICIAN] - Activity:: Activity as Tolerated Equipment/Supplies:: No Equipment Needed Diet:: As Tolerated Discharge Orders Discharge Orders: Discharge Order (Routine); Ordered 01/20/23 Ordered By: Gt Mills DS: Summary Time Spent with Patient providing and/or coordinating discharge services: Less than 30 minutes Status at Discharge Functional status at discharge: uses cane/walker Overall status at discharge: patient is progressing back to baseline Mental Status: mental status grossly normal Speech and Movement: speech and movement normal Mood: congruent mood Affect: normal affect Exam Narrative Exam Narrative: Sitting up in the hospital bed. No acute distress. Alert and x3. Evaluation the left leg shows leg lengths to be equal. No abnormal positioning. Dressings are clean dry and intact. She is able to tolerate internal and external rotation of the left hip. Sensation intact to light touch of the deep and superficial peroneal nerve and tibial nerve. She is able to actively demonstrate ankle dorsiflexion and plantarflexion as well as some weak knee extension. No significant numbness or along the femoral nerve or lateral femoral cutaneous nerve distributions. Psych Mental Status: mental status grossly normal Speech and Movement: speech and movement normal Mood: congruent mood Affect: normal affect DS: Data Vitals/I&O Vitals and I&O: Laboratory Results - last 24 hr 01/20/23 01/20/23 06:25 06:25 WBC 9.62 RBC 3.64 L Hgb 9.5 L D Hct 30.1 L MCV 83 MCH 26.1 L MCHC 31.6 L RDW 18.2 H Plt Count 154 MPV 11.6 H Sodium 137 Potassium 5.2 H Chloride 102 Carbon Dioxide 29.7 Anion Gap 5.3 BUN 34 H Creatinine 1.5 H Est GFR (CKD-EPI 2020) 39.16 Glucose 199 H Calcium 9.4 Vital Signs Temp Pulse Resp BP Pulse Ox 01/20/23 08:25 36.5 C 71 18 70/40 L 94 01/20/23 03:30 36.4 C L 63 18 74/60 L 94 01/19/23 22:29 94/60 L 01/19/23 22:15 36.1 C L 89 18 91/57 L 95 PFSH All Active Problems 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 (Acute) s/p Hardware Removal and KYUNG (01-19-23) Depression (Chronic) Bipolar 1 disorder (Acute) Diabetes (Chronic) Cholelithiasis (Chronic) Ventral hernia (Acute) Leukocytosis (Acute) Pleural effusion (Acute) Black tarry stools (Acute) Chronic diarrhea (Acute) Farrell's esophagus (Chronic) Esophageal ulcer with bleeding (Acute) Erosive esophagitis (Acute) Farrell's 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 (Acute) Hyperplastic colon polyp (Acute ~06/10/21) Tubular adenoma (Acute ~06/10/21) Neuroleptic induced parkinsonism (Acute) Drug-induced parkinsonism (Acute) Anemia (Chronic) Status post hip surgery (Acute) H/O: pneumonia (Acute) Abnormal chest xray (Acute) Pre-op evaluation (Acute) Medical History Acute cardiogenic pulmonary edema Acute metabolic encephalopathy Acute respiratory failure with hypoxia Alcohol abuse Per pt. states she has never had an issues with any subtances Anxiety Bilateral pneumonia Chronic iron deficiency anemia Chronic pancreatitis due to acute alcohol intoxication Closed fracture of neck of left femur s/p Percutaneous Screw Fixation 08/09/22 Constipation Diabetes mellitus type 2 in obese ETOH abuse History of pilonidal cyst Hypokalemia NSTEMI (non-ST elevated myocardial infarction) Per pt. states she did not have a heart attack Poorly controlled diabetes mellitus Stress-induced cardiomyopathy acute onset managed at [facility] 08/30 pressors, EF 25%, has since recovered [facility] Surgical History History of section History of colonoscopy with polypectomy (~06/10/21) History of esophagogastroduodenoscopy (EGD) (~06/10/21) History of hysterectomy History of tonsillectomy S/P laparoscopic procedure cyst removed from stomach per patient S/P surgical removal of pilonidal cyst Family History Father Hypertension Diabetes Heart disease Social History Smoking/Tobacco Use Status: Former Tobacco Use Quit Date: 02/07/21 Smoking risk assessment performed?: Yes Alcohol Intake: never Drug use: Never Substance use type: does not use Details: pt. 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 Time Spent with Patient Time Spent with Patient: 45-69 minutes Time was spent: preparing to see the patient(eg.review tests), ordering medications,tests, procedures, indepentently interpreting results, counseling the patient and care coordination
[2023-01-20 08:25] VITALS: BP 70/40; PULSE 71; RESP 18; TEMP 36.5; O2SAT 94
[2023-01-20] MEDS: Insulin Aspart 300 UNITS/3 ML PEN SC (09:06)
[2023-01-20] MEDS: Folic Acid 1 MG TAB NG (09:07)
[2023-01-20] MEDS: Enoxaparin 40 MG/0.4 ML SYR SC (09:07)
[2023-01-20] MEDS: Multivitamin TAB 1 TAB PO (09:07)
[2023-01-20] MEDS: Empaglifozin 10 MG TAB NG (09:07)
[2023-01-20] MEDS: Atorvastatin 40 MG TAB 80 MG JT (09:08)
[2023-01-20] MEDS: Sucralfate 1 GM TAB PO (09:08)
[2023-01-20] MEDS: Gabapentin 300 MG CAP 900 MG NG (09:08)
[2023-01-20] MEDS: buPROPion 100 MG TAB 300 MG PO (09:09)
[2023-01-20 10:05] VITALS: BP 67/39; BP 70/40
--- NOTE | 2023-01-20 10:30 | CMDISCH_ITS ---
Date of service: 01/20/23 Time of Service: 10:30 LACE Index Scoring Tool Questions: Length of Stay (in days): 1 Was the patient admitted via the E.D.?: No E.D. Visits: 3 Answers: Total Score: 4 Risk of Readmission: Low Risk Care Management Discharge Plan Reason for Hospitalization: Left hip DJD Discharge Plan: Jennifer is discharged home via private vehicle with family. She will follow up with community providers and her discharge plan of care as ins tructed. [facility] services are declined by patient and . Patient/Family Education Needs: Review discharge instructions, limitations, medications and plan to follow up with community providers. Discuss ask me three and goals of self care.
--- NOTE | 2023-01-20 10:53 | W.NUTCONSULT ---
Date of service: 01/20/23 Time of Service: 10:53 Nutritional Consult ASSESSMENT: nutrition consult noted and pt's chart reviewed for current nutritional risk. Weight has been stable. last Hgb A1C of 7.2 last on 08/08/22 is in the desireable reange. Pt with low hgb/Hct post surgery for L hip replacement and is now being discharged home with family members. NUTRITIONAL DIAGNOSIS: Anemia secondary to post surgical replacement of L Hip as evidenced by decreased lab values for ghb and hct. INTERVENTION: pt discharged on appropriate supplements for repesion with appropriate follow ups for rechecks. no nutritional intervention planned at this time. Time Spent in Nutritional Counseling and Treatment: 0
--- NOTE | 2023-01-20 13:59 | PT.INIE ---
Date of service: 01/20/23 Time of Service: 09:13 PT Notes Visit Reasons: Left hip DJD Physical Therapy Inpatient Initial Evaluation Date: 01/20/2023 Referring Doctor: ROSLYN Fitzgerald PT Orders: PT CONSULT: S/P Ortho surgery Precautions: Fall. Standard. WBAT on left LE with AD. 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 She is on postoperative day 1. PMHX: All Active Problems? Depression (Chronic) Bipolar 1 disorder (Acute) Diabetes (Chronic) Cholelithiasis (Chronic) Ventral hernia (Acute) Leukocytosis (Acute) Pleural effusion (Acute) Black tarry stools (Acute) Chronic diarrhea (Acute) Farrell's esophagus (Chronic) Esophageal ulcer with bleeding (Acute) Erosive esophagitis (Acute) Farrell's 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 (Acute) Hyperplastic colon polyp (Acute ~06/10/21) Tubular adenoma (Acute ~06/10/21) Neuroleptic induced parkinsonism (Acute) Drug-induced parkinsonism (Acute) Closed fracture of neck of left femur (Acute) s/p Percutaneous Screw Fixation 08/09/22 Anemia (Chronic) Status post hip surgery (Acute) H/O: pneumonia (Acute) Abnormal chest xray (Acute) Pre-op evaluation (Acute) Medical History? Acute cardiogenic pulmonary edema Acute metabolic encephalopathy Acute respiratory failure with hypoxia Alcohol abuse Per pt. states she has never had an issues with any subtances Anxiety Bilateral pneumonia Chronic iron deficiency anemia Chronic pancreatitis due to acute alcohol intoxication Constipation Diabetes mellitus type 2 in obese ETOH abuse History of pilonidal cyst Hypokalemia NSTEMI (non-ST elevated myocardial infarction) Per pt. states she did not have a heart attack Poorly controlled diabetes mellitus Stress-induced cardiomyopathy acute onset managed at [facility] 08/30 pressors, EF 25%, has since recovered RH Surgical History? History of section History of colonoscopy with polypectomy (~06/10/21) History of esophagogastroduodenoscopy (EGD) (~06/10/21) History of hysterectomy History of tonsillectomy S/P laparoscopic procedure cyst removed from stomach per patient S/P surgical removal of pilonidal cyst Social History/Home Situation: Lives with in a private home with 2-3 steps to enter with rail on the R going up. to for 25 years. Independent with use of FWW indoors and outdoors but has had worsening issue with walking and mobility performance the past few months after ORIF of L femoral neck fracture. Equipment Owned/DME: FWW Subjective: Wanted to go home rojelio. ecstatic about PT showing up so she may get cleared to go home. Patient reports less than 3/10 pain in the L hip with movement. She was anxiosu to move out of bed but was releived to feel that she did not hurt as much as she expected. mostly responded to PT's questions to the patient although PT directed all questions to her. 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 refused HH PT stating that they are all set at home. Objective: General Observation: Suine in bed. PEG tube in place. Nurse Maegan prepping up morning medication through PEG. hovering over and making sure that he is there throughout PT evaluation. Mental Status: Alert and oriented as to person, place, time, and purpose. Able to pay attention, focus, and respond appropriately. Pain: 3/10 in the L hip while walking Vital Signs: High 70s/50s mmHg prior to PT arrival but patient and state that patient's BP has been a little on the low side ROM: Right Lower Extremity: Hip flexion WFL. Hip abduction WFL. Knee flexion WFL. Ankle dorsiflexion WFL. Ankle plantarflexion WFL. Left Lower Extremity: Hip flexion lacks the last 25% of AROM due to discomfort and pot op status. Hip abduction WFL. Knee flexion 20 to 90 degrees. Knee extension -20 degrees. Ankle dorsiflexion WFL. Ankle plantarflexion WFL. Strength: Right Lower Extremity: Hip flexors 4/5. Hip abductors 4/5. Knee flexors 5/5. Knee extensors 4/5. Ankle dorsiflexors 4/5. Ankle plantarflexors 5/5. Left Lower Extremity: Hip flexors 4-/5. Hip abductors 4-/5. Knee flexors 4/5. Knee extensors 3-/5. Ankle dorsiflexors 4-/5. Ankle plantarflexors 4-/5. Bed Mobility/Transfers: Supine to sit stand by assist with cues to use hands to support L LE as needed Sit to stand contact guard assist using B hands for support with minimal cues given for hand placement and trunk positioning for safety Stand to sit contact guard assist using B hands for support with minimal cues given for hand placement and trunk positioning for safety Gait: Instructed patient with level surface ambulation of 50 feet requiring contact guard assist. Christine decreased. No shortness of breath. No LOB nor increse in pain report. Moderate verbal cueing given for movement sequence, AD management, limb advancement, and posture Stairs: Ascended and descended 6 x 4-inch steps and 4 x 6-inch steps while holding onto B rails with step-to gait pattern requiring contact guard assist. Moderate verbal cueing provided for safe technique, limb ascent/descent, and turning. Balance: Static Sitting: Normal Dynamic Sitting: Normal Static Standing: Fair Dynamic Standing: Fair Special Tests: Mobility Limitations Standardized Measure [facility] 6 clicks Basic Mobility Inpatient Short Form: Raw Score: 22 CMS Score: 21% deficit Informed Consent/Education: Patient was instructed in purpose of PT consult and plan of care. Agreeable to proceed with established PT POC to achieve personal goals. Trained patient with correct performance of exercises below to maximize motor control, joint flexibility, soft tissue extensibility of the L hip musculature to facilitate return to independent functional mobility performance. Access Code: [email or web address] URL: [email or web address] Date: 01/20/2023 Prepared by: Sangita Luz Exercises - Gluteal Sets - 1 x daily - 7 x weekly - 1 sets - 10 reps - 5 hold - Supine Heel Slide - 1 x daily - 7 x weekly - 1 sets - 10 reps - 5 hold - Supine Ankle Pumps - 1 x daily - 7 x weekly - 1 sets - 10 reps - 5 hold - Seated July - 1 x daily - 7 x weekly - 1 sets - 10 reps - 5 hold - Seated Long Arc Quad - 1 x daily - 7 x weekly - 1 sets - 10 reps - 5 hold ASSESSMENT: Patient requires use of a front wheeled walker to maximize independence and reduce fall risk. She may benefit from home health PT services in order to ensure a smooth transition with mobility performance at home. Patient presents with clinical signs and symptoms consistent with current/admitting diagnoses that have resulted to mobility limitations, gait instability, generalized weakness, and overall ADL decline as demonstrated by the following impairment level findings: 1. Decreased strength to L hip major muscle groups 2. Impaired sitting/standing balance 3. Impaired activity tolerance 4. Limitation of joint range of motion in L hip Impairments are contributing to the following functional limitations: 1. Decline in bed mobility skills 2. Decline in transfer skills 3. Difficulty with ambulation without assistive device and physical assistance 4. Increased completion time for mobility ADL performance 5. Increased risk for falls 6. Difficulty with managing steps alone safely Patient is assessed as a 84923 moderate complexity based on the following: History: 62-year-old female with past medical history as indicated above Examination: Demonstrable impairment in strength, balance, and mobility level with underlying impairments and functional limitations as exhibited above as well as deficit score of 21% utilizing the [facility] Mobility Inpatient Short Form Presentation: Evolving Decision Makin moderate complexity Goals: N/A. PT evaluation and 1 treatment session for functional mobility training as well as HEP instruction. Plan of Care/Treatment Plan: N/A. PT evaluation and 1 treatment session for functional mobility training as well as HEP instruction. DISCHARGE RECOMMENDATIONS: [] Home with no services [] [X] Home with services. Patient will benefit from home health PT services in order to progress mobility level using least restrictive assistive ambulatory device, assess home safety, identify additional equipment needs, and establish a functional maintenance program that will increase ability of patient to remain at home. [] Home with outpatient PT [] [] SNF for continued rehabilitation [] [] Conference Coordinator Care [] [] SNF versus LTC based on ability to participate and progress [] TREATMENT CODE/TIME: 91214 x 20 minutes for 1 unit, 45524 x 23 minutes for 2 units beginning at 9:13 AM. Thank you for the opportunity to participate in the care of this patient. Sangita Luz PT, DPT, CLT [facility] [place], [place]
== END 2023-01-20 11:23 | disposition home or self-care (01) ==
LOC: SUR 12:16 → MS 16:30
PROVIDERS: Admitting Provider Student in an Organized Health Care Education/Training Program; PCP Nurse Practitioner Family; Visit Provider Student in an Organized Health Care Education/Training Program
PROC: (CPT 27130; principal; 2023-01-19 14:00)
DX: S72.002K Fracture of unspecified part of neck of left femur, subsequent encounter for closed fracture with nonunion (principal); F31.9 Bipolar disorder, unspecified; E11.9 Type 2 diabetes mellitus without complications; K52.9 Noninfective gastroenteritis and colitis, unspecified; K22.70 Barrett's esophagus without dysplasia; G21.11 Neuroleptic induced parkinsonism; T43.595A Adverse effect of other antipsychotics and neuroleptics, initial encounter; Z79.4 Long term (current) use of insulin; Z79.82 Long term (current) use of aspirin; Z87.891 Personal history of nicotine dependence; D50.9 Iron deficiency anemia, unspecified; I25.2 Old myocardial infarction; F10.11 Alcohol abuse, in remission; K59.00 Constipation, unspecified
CPT/HCPCS: 20680; 27130; 36569; 36415; 80048; 85027; 96361; 96365; 96366; 97162; 97530; J1650; 73501; G0378; J0131; J0690; J1100; J1885; J2250; J2371; J2405; J2704

== ENCOUNTER 2023-01-31 20:44 | Inpatient (IN) | payer MEDICAID, SELFPAY ==
[2023-01-31] VITALS (53 sets, daily range): BP systolic 61–112; BP diastolic 16–58; PULSE 67–124; RESP 14–28; TEMP 37.3; O2SAT 89–100
--- NOTE | 2023-01-31 20:30 | RT.EKG_ITS ---
APPROVED REPORT Exam: Resting ECG Reason for Exam: weakness Patient Location: E HR:75 bpm ECG Measurements Heart Rate 75 AXIS AR 159 P 46 QRSd 78 QRS 68 QT 372 T 25 QTc 417 Conclusion Sinus rhythm...normal P axis, V-rate 60- 99 Ventricular premature complex...V complex w/ short R-R interval Low voltage, extremity and precordial leads...extremity<0.5mV, precordial<1.0mV Physician: no stemi
[2023-01-31] MEDS: Normal Saline 1,000 ML 1000 ML IV ×3 (21:00→23:10)
[2023-01-31 21:12] LABS: Abs Immature Grans 0.05 10^3/uL (0.0-0.06); Absolute Basophil Count 0.04 10^3/uL (0.0-0.2); Absolute Eosinophil Count 0.15 10^3/uL (0.0-0.7); Absolute Lymphocyte Count 0.37 10^3/uL (1.2-3.4); Absolute Monocyte Count 0.53 10^3/uL (0.1-0.8); Absolute Neutrophil Count 5.75 10^3/uL (1.2-6.7); Basophils % 0.6; Eosinophils % 2.2; HCT 28.8 % (36.0-46.0); HGB 8.9 g/dL (11.2-15.7); Immature Grans % 0.7; Lymphocytes % 5.4; MCH 26.5 pg (27.0-33.0); MCHC 30.9 % (32.0-36.0); MCV 86 fL (80-95); MPV 10.8 fL (8.0-11.0); Monocytes % 7.7; Neutrophils % 83.4; Platelet Count 268 10^3/uL (130-400); RBC 3.36 10^6/uL (3.93-5.22); RDW 20.6 % (11.7-14.6); RDW-SD 63.1 fL; WBC 6.89 10^3/uL (4.4-10.8)
[2023-01-31 21:13] LABS: Lactate 2.3 mmol/L (0.6-1.4)
[2023-01-31 21:26] LABS: Bilirubin Negative (Negative); Blood Negative (Negative); Clarity Clear (Clear); Glucose >=1000 mg/dL (Negative); Ketones Negative (Negative); Leukocyte Esterase Negative (Negative); Nitrite Negative (Negative); Specific Gravity 1.015 (1.005-1.025); Urobilinogen 0.2 mg/dL (Up to 0.2); pH 6.5 (5-8)
--- NOTE | 2023-01-31 21:28 | DI.CT_ITS ---
Exam(s) CT CHEST PE ABD PELVIS W EXAM: CT CHEST PE ABD PELVIS W CLINICAL HISTORY: recent surgery, r/o PE. TECHNIQUE: Imaging Protocol: Axial CT angiography was performed with multi-slice acquisition and m ulti-planar and/or 3D reconstructions. CONTRAST MATERIAL: Intravenous: Omnipaque 350 Contrast volume:100 ml Oral: Yes COMPARISON: CT CT CHEST PE CTA from 08/12/2022 CR XR CHEST 2V PA LATERAL from 12/17/2022 FINDINGS: CHEST: Study somewhat limited by respiratory motion artifact. PULMONARY ARTERIES: There are no obvious intra-arterial filling defects to suggest the presence of ac paz pulmonary emboli. LUNGS: The previously present extensive pulmonary infiltrates in both lung howard have mostly resolve d..There is some milder infiltrate in the left lower lobe basal segments evident on the present study . No pleural effusions evident. No pneumothorax. Small 2 millimeter nodule noted in the lateral as pect of the right middle lobe. MEDIASTINUM: There are moderately enlarged lymph nodes in left hilum and mildly enlarged nodes in the right hilum. There is mild subcarinal adenopathy. Esophagus is significantly dilated and contains none food and fluid. High risk for aspiration. CARDIAC: Heart size is normal. There is no pericardial effusion. There is no significant shift of t he interventricular septum.Caliber of the thoracic aorta is within normal limits. OSSEOUS: No significant osseous lesions.. ABDOMEN: There is a percutaneous gastrostomy-PEG in place in the stomach. No free air. No abscess. Possible previous partial right hemicolectomy. No evidence of abscess. Small bowel loop diameters are upper normal. No evidence of bowel true obstruction. LIVER: There are no new concerning focal hepatic lesions nor dilatation of intrahepatic ducts. Benig n cyst in the right hepatic lobe again noted, unchanged in size, measuring approximately 1.2 x 0.9 cm . GALLBLADDER/BILIARY: Is contracted and contains dense material probably gallstones. There is small a mount of pericholecystic fluid. CBD is not dilated. PANCREAS: No evidence of pancreatic mass nor dilatation of the pancreatic duct. SPLEEN: Spleen is not enlarged. There are no intrasplenic lesions. Splenic and portal veins are fofana nt. ADRENALS: There are no significant adrenal masses. KIDNEYS:No cysts evident. No calculi nor hydronephrosis. No solid renal masses. ABDOMINAL AORTA: Calcified but not enlarged. Iliac arteries also calcified but not enlarged. LYMPH NODES: There is no retroperitoneal or para-aortic adenopathy. ABDOMINAL WALL/GI: No evidence of significant anterior abdominal wall hernia. PELVIS: LYMPH NODES: There is no intrapelvic nor inguinal adenopathy. GI: No evidence of appendicitis.No evidence of sigmoid diverticulitis. URINARY BLADDER: There is a Mcrae catheter in the urinary bladder. REPRODUCTIVE: Uterus surgically absent. No abnormal adnexal masses. No free fluid. OSSEOUS: Left hip prosthesis. IMPRESSION: 1. No evidence of obvious acute pulmonary emboli nor pulmonary infarction. 2. There is some infiltrate in left lower lobe. However, the previously present extensive infiltrate s in both lung howard evident in August 2022 have significantly improved.Given the significant dilatat ion of the esophagus I suspect that there could possibly be an element of aspiration in play here. 3. Cholelithiasis. Gallbladder is contracted and slightly thickened wall with some mild fluid around the gallbladder fossa. Correlation with clinical findings. Cannot exclude possibility of element o f acute cholecystitis here. The CBD and intrahepatic ducts are not dilated. 4. Percutaneous gastrostomy is in satisfactory position. No free air. No ascites. 5. Mcrae catheter in the urinary bladder. Previous hysterectomy. RADIATION DOSE DELIVERED: 1,292.77mGy.cm Total DLP DATA REPOSITORY: All CT scans at this facility are submitted to the National Radiology Data Registry (NRDR) Dose Index Registry (DIR) with the [employer] (A[employer]). RADIATION OPTIMIZATION: All CT scans at this facility use at least one of these dose optimization te chniques: automated exposure control; mA and/or kV adjustment per patient size (includes targeted exa ms where dose is matched to clinical indication); or iterative reconstruction.
[2023-01-31] MEDS: Norepinephrine in D5W 8 MG/250 ML BAG 18.75 MG IV (21:30)
[2023-01-31 21:31] LABS: ALT 8 U/L (14-59); AST 19 U/L (15-37); Albumin 2.1 g/dL (3.4-5.0); Alkaline Phosphatase 143 U/L (46-116); Anion Gap 6.7 mmol/L (3-11); BUN 44 mg/dL (7-18); Bilirubin, Total 0.4 mg/dL (0.2-1.0); CO2 27.3 mmol/L (21.0-32.0); CREATININE 1.5 mg/dL (0.55-1.02); Calcium 9.3 mg/dL (8.5-10.1); Chloride 102 mmol/L (98-107); Estimated GFR 39.16 (mL/min/1.73m2); Glucose 284 mg/dL (74-106); Magnesium 2.3 mg/dL (1.8-2.4); Potassium 4.9 mmol/L (3.5-5.1); Sodium 136 mmol/L (136-145); Total Protein 6.2 g/dL (6.4-8.2)
[2023-01-31 21:38] LABS: Anisocytosis 2+; Diff Comment Diff Reviewed; Poikilocytes 1+; Polychromasia Present
[2023-01-31] MEDS: Omnipaque 350 MG/ML 100 ML BTL IJ (21:42)
[2023-01-31] MEDS: Normal Saline - Diluent 50 ML VIAL IJ (21:43)
[2023-01-31] MEDS: Normal Saline Flush 10 ML SYR IVP (21:43)
[2023-01-31 21:45] LABS: Procalcitonin 0.5 ng/mL
[2023-01-31 21:52] LABS: Influenza A PCR Negative (Negative); Influenza B PCR Negative (Negative); RSV PCR Negative (Negative)
[2023-01-31 21:56] LABS: COVID-19 PCR Positive (Negative); Source Nasopharynx
[2023-01-31] MEDS: AZITHROMYCIN 500 MG in Normal Saline 250 ML 250 MG IVPB (22:00)
--- NOTE | 2023-01-31 22:07 | W.ED.GENAD ---
Discharge Plan Disposition Patient Disposition: Admit to [facility] Discharge Details Clinical Impression: COVID, Sepsis, Acute kidney injury, Anemia Primary Care Provider: Ana Gillespie ED Provider: Parminder Qureshi Home Meds and New Rx's Prescriptions: No Action bupropion HCl 100 mg tablet 300 mg PO DAILY Patient Comments: via g-tube, per pcp ov notes 12/09/22 RH Humulin N NPH Insulin KwikPen 100 unit/mL (3 mL) insulin pen See Rx Instructions SUBCUT DAILY Rx Instructions: 17 units subcutaneously at start of tube feet and again 6 hrs later 12/16/22 per PCP notes RH protein Powder PO insulin aspart U-100 [Novolog FlexPen U-100 Insulin] 100 unit/mL (3 mL) insulin pen 5 unit subcut TID Rx Instructions: Inject 1 unit subcutaneously twice a day as directed, inject 2 units for BG 151-250, 3 units for BG 251-300, 4 units for BG 301-350 gabapentin 300 mg capsule 900 mg feeding tube TID Patient Comments: via g-tube Entresto 24-26 mg tablet 1 tab feeding tube DAILY Patient Comments: via g-tube Jardiance 10 mg tablet 10 mg PO DAILY insulin glargine [Lantus U-100 Insulin] 100 unit/mL solution 10 unit subcut QPM quetiapine 100 mg tablet 100 mg PO QHS atorvastatin 80 mg tablet 80 mg PO DAILY valproic acid (as sodium salt) 250 mg/5 mL solution 300 mg PO TID Rx Instructions: 6mls TID metoprolol succinate 50 mg tablet extended release 24 hr 50 mg PO DAILY spironolactone 25 mg tablet 12.5 mg PO DAILY melatonin 3 mg capsule 9 mg PO HS PRN Patient Comments: via g-tube ibuprofen 100 mg/5 mL suspension 600 mg PO Q8H Qty: 473 0RF sucralfate 1 gram tablet 1 g PO QID Patient Comments: TAKE ONE TABLET BY MOUTH FOUR TIMES A DAY folic acid 1 mg Tablet 1 mg PO DAILY Qty: 0 0RF multivitamin [Multiple Vitamins] Tablet 1 tab PO DAILY Qty: 30 0RF ferrous sulfate 300 mg (60 mg iron)/5 mL liquid .QOD Patient Comments: TAKE 5ML VIA G-TUBE EVERY OTHER DAY acetaminophen [Mapap (acetaminophen)] 500 mg/15 mL liquid PRN Patient Comments: TAKE 30ML BY MOUTH EVERY 8 HOURS NEEDED pantoprazole [Protonix] 40 mg tablet,delayed release (DR/EC) 40 mg PO BID Qty: 60 0RF acetaminophen 500 mg/15 mL liquid 1,000 mg PO Q8H PRNQty: 237 2RF aspirin [Aspirin Childrens] 81 mg tablet,chewable 81 mg PO BID Qty: 60 0RF Rx Instructions: via g-tube dexamethasone 0.5 mg/5 mL solution 4 mg PO ONCE Qty: 240 0RF Rx Instructions: Take 4 mg (40 mL) once a day for first two days postoperatively oxycodone 5 mg/5 mL solution 5 mg PO Q6H PRN (Reason: pain) Qty: 90 0RF Rx Instructions: 2.5-5mL per G-tube for pain Medical Decision Making Patient presenting to the emergency department for chief complaint of generalized weakness and fever. Patient transported by EMS and EMS states significant weakness and noted fever with no other complaints. They did note slightly low blood pressure. Patient is altered, tachypneic, hypotensive, low-grade fever noted here, is on nasal cannula with normal O2 sats with supplemental oxygen. We had low-grade fever noted. Patient denies any specific symptoms but again review of systems and history is difficult secondary to patient's altered mental status. Patient meets septic shock criteria so multiple IVs were established, patient started on norepinephrine, and fluid bolus was initiated. Physical exam was performed and patient is not tachycardic but I suspect this could be secondary to her taking metoprolol, clear lung sounds, soft nontender abdomen, normal-appearing PEG tube, normal-appearing postoperative wound site with no no signs of infection, patient did report sacral ulcer which was visualized and only appears to be stage I redness with possible early stage II with very subtle skin breakdown. Exam otherwise noncontributory also consulted with attending physician Dr. Eason who also recommended broad-spectrum antibiotics pending lab work-up and CTA imaging given that patient is needing supplemental oxygen and hypotensive along with postop.. I also did include viral pathogen panel. Once lines were established and pressors initiated was able to speak with significant other whom stated that patient had no complaints today and was up ambulating, doing her normal postoperative exercises given that she just had a hip replacement 2 weeks ago, and was not complaining of anything. Around 745 or so patient all of a sudden became significantly weak and could not walk or move and started acting altered. He was not even able to get patient up with walker so EMS was contacted. Reviewed patient's labs and no significant leukocytosis but there was noted low lymphocytes, patient is anemic chronically but slightly accused worsening of her anemia, lactate is elevated at 2.3, CMP shows elevated BUN of 44, creatinine 1.5 with a GFR of 39. This is acutely worse than patient's baseline which is normally 60-70. Glucose is elevated at 284 all of the labs nonspecific. Urinalysis shows no signs of infection. Patient is COVID-positive. Upon seeing this I did order Decadron procalcitonin PT PTT and D-dimer for further monitoring. Reviewed radiologist interpretation CT imaging that shows no PE, some groundglass versus interstitial opacities that radiologist is calling pneumonitis otherwise noncontributory CT imaging. Did speak to hospitalist in regards to case and further review of patient's history that did show multiple episodes of low blood pressure and patient's giving her metoprolol this evening there is question of this potentially being some anemia secondary to her surgery then low blood pressures secondary to her receiving metoprolol. Given patient's fever and COVID I do feel this is somewhat difficult case. We will still plan on admitting patient to ICU for further treatment. Medical Records Medical records reviewed: Yes I reviewed the patient's medical records. Medical records narrative: Reviewed pulmonology visit that noted patient having life-threatening respiratory failure secondary to second septic shock pneumonia and cardiogenic shock after having her hip pinned 2 days prior due to fall. Patient did have a complicated stay requiring intubation ICU stay and need of vasopressor's patient did recover well and was able to have the scheduled hip replacement approximately 2 weeks after pulmonology visit. Review of discharge summary from hip replacement shows fairly uncomplicated course of her hospital stay. Imaging Data Radiologic Study: Imaging: CT Scan Radiologist's impression: Exam(s) PROCEDURE INFORMATION: Exam: CTA Chest With Contrast Exam date and time: 01/31/2023 10:04 PM Age: 62 years old Clinical indication: Abdominal tenderness; Fever and other: Recent hip surgery; Prior surgery; Surgery date: 3-7 days post-operative; Surgery type: Hip surgery; Patient HX: Recent surgery, R/O pe TECHNIQUE: Imaging protocol: Computed tomographic angiography of the chest with contrast. Exam focused on the arteries. 3D rendering (Not supervised by radiologist): MIP and/or 3D reconstructed images were created by the technologist. Radiation optimization: All CT scans at this facility use at least one of these dose optimization techniques: automated exposure control; mA and/or kV adjustment per patient size (includes targeted exams where dose is matched to clinical indication); or iterative reconstruction. Contrast material: OMNPAQUE 350; Contrast volume: 100 ml; Contrast route: INTRAVENOUS (IV); COMPARISON: CT CHEST PE CTA 08/12/2022 3:23 PM FINDINGS: Mildly limited due to motion artifact Pulmonary arteries: No pulmonary emboli. Aorta: Unremarkable. No aortic aneurysm. No aortic dissection. Lungs: Mild ground-glass/interstitial opacities in the left . Minimal opacities on the right No consolidation. No masses. 2 mm nodule right middle lobe Pleural spaces: No pneumothorax. No pleural effusion. Heart: No cardiomegaly. No pericardial effusion. Lymph nodes: Mildly enlarged hilar and mediastinal lymph nodes. Bones/joints: No acute fracture. Soft tissues: Unremarkable. Dilated esophagus with wall thickening and fluid level noted IMPRESSION: No pulmonary emboli observed Mild left greater than right pneumonitis versus asymmetric edema 2 mm right middle lobe pulmonary nodule, grossly stable Esophageal dysmotility versus chronic gastroesophageal reflux PROCEDURE INFORMATION: Exam: CT Abdomen And Pelvis With Contrast Exam date and time: 01/31/2023 10:04 PM Age: 62 years old Clinical indication: Abdominal tenderness; Fever and other: Recent hip surgery; Prior surgery; Surgery date: 3-7 days post-operative; Surgery type: Hip surgery; Patient HX: Recent surgery, R/O pe TECHNIQUE: Imaging protocol: Computed tomography of the abdomen and pelvis with contrast. Radiation optimization: All CT scans at this facility use at least one of these dose optimization techniques: automated exposure control; mA and/or kV adjustment per patient size (includes targeted exams where dose is matched to clinical indication); or iterative reconstruction. Contrast material: OMNPAQUE 350; Contrast volume: 100 ml; Contrast route: INTRAVENOUS (IV); COMPARISON: CT ABDOMEN PELVIS W 07/17/2021 9:34 AM FINDINGS: Liver: Fatty infiltration . Small cyst adjacent to the IVC superiorly Gallbladder and bile ducts: Contracted with faint gallstones noted. No ductal dilation. Pancreas: Normal. No ductal dilation. Spleen: Normal. No splenomegaly. Adrenal glands: Normal. No mass. Kidneys and ureters: Normal. No hydronephrosis. Stomach and bowel: Gastrostomy tube in the stomach. Moderate dense stool in the colon No obstruction. No mucosal thickening. Appendix: No evidence of appendicitis. Intraperitoneal space: Unremarkable. No free air. No significant fluid collection. Vasculature: Unremarkable. No abdominal aortic aneurysm. Lymph nodes: Unremarkable. No enlarged lymph nodes. Urinary bladder: Partially decompressed by a Mcrae catheter. Reproductive: Unremarkable as visualized. Bones/joints: Left hip arthroplasty No acute fracture. Soft tissues: Unremarkable. IMPRESSION: Gallstones Lab Data Lab results reviewed: Yes I reviewed the patient's lab results. HPI General Mode of arrival: EMS. Date/Time Provider Initiated Documentation: 01/31/23 20:51. Limitations to Documentation: no limitations. Information obtained by: patient and RN notes reviewed. History of Present Illness 62 year old F presents to the emergency department with the chief complaint of weakness, fever, described as severe, Patient started experiencing this hour(s) (1) and it has been constant. No relieving factors improve symptom(s), No exacerbating factors reported . Patient notes no other symptoms.. Patient did receive the following treatments prior to arrival, none Related Data Home Medications Medication Instructions Recorded Confirmed insulin aspart U-100 100 unit/mL 5 unit subcut TID 07/16/21 01/31/23 (3 mL) subcutaneous pen (Novolog FlexPen U-100 Insulin aspart) pantoprazole 40 mg tablet,delayed 40 mg PO BID #60 tabs 07/19/21 01/31/23 release (Protonix) sucralfate 1 gram tablet 1 g PO QID 08/08/22 01/31/23 folic acid 1 mg tablet 1 mg PO DAILY #0 tabs 08/10/22 01/31/23 multivitamin (Multiple Vitamins 1 tab PO DAILY #30 tabs 08/10/22 01/31/23 tablet) atorvastatin 80 mg tablet 80 mg PO DAILY 11/18/22 01/31/23 empagliflozin 10 mg tablet 10 mg PO DAILY 11/18/22 01/31/23 (Jardiance) gabapentin 300 mg capsule 900 mg feeding tube TID 11/18/22 01/31/23 insulin glargine 100 unit/mL 10 unit subcut QPM 11/18/22 01/31/23 subcutaneous solution (Lantus U-100 Insulin) melatonin 3 mg capsule 9 mg PO HS PRN 11/18/22 01/31/23 metoprolol succinate 50 mg 50 mg PO DAILY 11/18/22 01/31/23 tablet,extended release 24 hr quetiapine 100 mg tablet 100 mg PO QHS 11/18/22 01/31/23 sacubitril 24 mg-valsartan 26 mg 1 tab feeding tube DAILY 11/18/22 01/31/23 tablet (Entresto) spironolactone 25 mg tablet 12.5 mg PO DAILY 11/18/22 01/31/23 valproic acid (as sodium salt) 250 300 mg PO TID 11/18/22 01/31/23 mg/5 mL oral solution bupropion HCl 100 mg tablet 300 mg PO DAILY 12/16/22 01/31/23 insulin NPH isoph U-100 human 100 See Rx Instructions subcut DAILY 12/16/22 01/31/23 unit/mL (3 mL) subcutaneous pen (Humulin N NPH U-100 Insulin KwikPen) protein pwd PO 12/16/22 01/08/23 acetaminophen 500 mg/15 mL oral 1,000 mg (30 mL) PO Q8H PRN #237 mL 01/19/23 liquid aspirin 81 mg chewable tablet 81 mg PO BID #60 tabs 01/19/23 01/31/23 (Aspirin Childrens) dexamethasone 0.5 mg/5 mL oral 4 mg (40 mL) PO ONCE #240 mL 01/19/23 01/31/23 solution oxycodone 5 mg/5 mL oral solution 5 mg (5 mL) PO Q6H PRN pain #90 mL 01/20/23 01/31/23 ibuprofen 100 mg/5 mL oral 600 mg (30 mL) PO Q8H #473 mL 01/27/23 01/31/23 suspension acetaminophen 500 mg/15 mL oral mg PRN 01/31/23 liquid (Mapap (acetaminophen)) ferrous sulfate 300 mg (60 mg mg .QOD 01/31/23 iron)/5 mL oral liquid Previous Rx's Medication Instructions Recorded pantoprazole 40 mg tablet,delayed 40 mg PO BID #60 tabs 07/19/21 release (Protonix) folic acid 1 mg tablet 1 mg PO DAILY #0 tabs 08/10/22 multivitamin (Multiple Vitamins 1 tab PO DAILY #30 tabs 08/10/22 tablet) acetaminophen 500 mg/15 mL oral 1,000 mg (30 mL) PO Q8H PRN #237 mL 01/19/23 liquid aspirin 81 mg chewable tablet 81 mg PO BID #60 tabs 01/19/23 (Aspirin Childrens) dexamethasone 0.5 mg/5 mL oral 4 mg (40 mL) PO ONCE #240 mL 01/19/23 solution oxycodone 5 mg/5 mL oral solution 5 mg (5 mL) PO Q6H PRN pain #90 mL 01/20/23 ibuprofen 100 mg/5 mL oral 600 mg (30 mL) PO Q8H #473 mL 01/27/23 suspension Allergies Allergy/AdvReac Type Severity Reaction Status Date / Time metformin Allergy Unknown Verified 01/31/23 21:16 meperidine AdvReac gi upset Verified 01/31/23 21:16 General Stated Complaint: GenMedical ASHANTI: 2 Review of Systems Constitutional Constitutional: Denies fatigue, Reports fever(s), Denies headache(s), Reports lethargy, Reports malaise and Reports weakness ENT Ears, Nose, Mouth, and Throat: Denies headache(s) and Reports disequilibrium Cardiovascular Cardiovascular: Denies chest pain and Denies lightheadedness Gastrointestinal Gastrointestinal: Denies abdominal pain and Denies diarrhea Genitourinary Genitourinary: Denies dysuria Musculoskeletal Musculoskeletal: Reports muscle weakness Integumentary/Breasts Skin/Breast: Reports erythema Neurologic Neurologic: Denies headache(s), Reports disequilibrium, Reports weakness and Reports other (Altered mental status) Endocrine Endocrine: Denies fatigue PFSH All Active Problems (Updated 01/31/23 @ 23:16 by Geronimo Ortiz MD) COVID (Acute) History of total left hip arthroplasty (Acute 01/19/23) 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 (Acute) s/p Hardware Removal and KYUNG (01-19-23) Depression (Chronic) Bipolar 1 disorder (Acute) Diabetes (Chronic) Cholelithiasis (Chronic) Ventral hernia (Acute) Leukocytosis (Acute) Pleural effusion (Acute) Black tarry stools (Acute) Chronic diarrhea (Acute) Farrell's esophagus (Chronic) Esophageal ulcer with bleeding (Acute) Erosive esophagitis (Acute) Farrell's 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 (Acute) Hyperplastic colon polyp (Acute ~06/10/21) Tubular adenoma (Acute ~06/10/21) Neuroleptic induced parkinsonism (Acute) Drug-induced parkinsonism (Acute) Anemia (Chronic) Status post hip surgery (Acute) H/O: pneumonia (Acute) Abnormal chest xray (Acute) Pre-op evaluation (Acute) Medical History Acute cardiogenic pulmonary edema Acute metabolic encephalopathy Acute respiratory failure with hypoxia Alcohol abuse Per pt. states she has never had an issues with any subtances Anxiety Bilateral pneumonia Chronic iron deficiency anemia Chronic pancreatitis due to acute alcohol intoxication Closed fracture of neck of left femur s/p Percutaneous Screw Fixation 08/09/22 Constipation Diabetes mellitus type 2 in obese ETOH abuse History of pilonidal cyst Hypokalemia NSTEMI (non-ST elevated myocardial infarction) Per pt. states she did not have a heart attack Poorly controlled diabetes mellitus Stress-induced cardiomyopathy acute onset managed at [facility] 08/30 pressors, EF 25%, has since recovered RH Surgical History History of section History of colonoscopy with polypectomy (~06/10/21) History of esophagogastroduodenoscopy (EGD) (~06/10/21) History of hysterectomy History of tonsillectomy S/P laparoscopic procedure cyst removed from stomach per patient S/P surgical removal of pilonidal cyst Family History Father Hypertension Diabetes Heart disease Social History Smoking/Tobacco Use Status: Former Tobacco Use Quit Date: 02/07/21 Smoking risk assessment performed?: Yes Alcohol Intake: never Drug use: Never Substance use type: does not use Details: pt. 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 Exam Const General: frail appearing and lethargic Orientation: alert and awake Limitations: altered mental status [facility] Head: normal to inspection and normocephalic Resp Effort & Inspection: normal respiratory effort Auscultation: clear to auscultation bilaterally Cardio Rate: regular rate Rhythm: regular rhythm Heart Sounds: S1 normal and S2 normal GI Inspection: normal to inspection and other (PEG tube in place with normal appearance surrounding insertion site) Palpation: soft and nontender Auscultation: normal bowel sounds Extrem Right lower extremity: hip/thigh (Normal-appearing postoperative scar to anterior lateral hip) Course Vital Signs Vital signs: Vital Signs Temperature 37.3 C 01/31/23 20:45 Pulse 68 01/31/23 20:45 Respiratory Rate 28 H 01/31/23 20:45 Blood Pressure 74/29 L 01/31/23 20:45 Pulse Oximetry 90 L 01/31/23 20:45 Temperature 37.3 C 01/31/23 20:45 Temperature Source Oral 01/31/23 20:45 Pulse 68 01/31/23 20:45 Respiratory Rate 28 H 01/31/23 20:45 Respiratory Effort Normal 01/31/23 20:45 Blood Pressure 74/29 L 01/31/23 20:45 Blood Pressure Position Supine 01/31/23 20:45 Pulse Oximetry 90 L 01/31/23 20:45 Oxygen Delivery Method Nasal Cannula 01/31/23 20:45 Lab/Test Results Lab/Test Results: 01/31/23 21:00 Urine - Cath Mcrae Indwelling Urine Culture - Pending 01/31/23 21:00 Blood Blood Culture - Pending 01/31/23 21:00 Blood Blood Culture - Pending Laboratory Tests Range/Units 01/31/23 01/31/23 01/31/23 21:00 21:00 21:00 WBC (4.4-10.8) 10^3/uL 6.89 RBC (3.93-5.22) 10^6/uL 3.36 L Hgb (11.2-15.7) g/dL 8.9 L Hct (36.0-46.0) % 28.8 L MCV (80-95) fL 86 MCH (27.0-33.0) pg 26.5 L MCHC (32.0-36.0) % 30.9 L RDW (11.7-14.6) % 20.6 H Plt Count (130-400) 10^3/uL 268 MPV (8.0-11.0) fL 10.8 Immature Gran % 0.7 Neutrophils % 83.4 Lymphocytes % 5.4 Monocytes % 7.7 Eosinophils % 2.2 Basophils % 0.6 Nucleated RBC % (0.0-0.3) % 0.0 Absolute Neutrophils (1.2-6.7) 10^3/uL 5.75 Absolute Lymphocytes (1.2-3.4) 10^3/uL 0.37 L Absolute Monocytes (0.1-0.8) 10^3/uL 0.53 Absolute Eosinophils (0.0-0.7) 10^3/uL 0.15 Absolute Basophils (0.0-0.2) 10^3/uL 0.04 RBC Morphology See Below Polychromasia Present Poikilocytosis 1+ Anisocytosis 2+ VBG Lactate (0.6-1.4) mmol/L 2.3 H* Sodium (136-145) mmol/L 136 Potassium (3.5-5.1) mmol/L 4.9 Chloride (98-107) mmol/L 102 Carbon Dioxide (21.0-32.0) mmol/L 27.3 Anion Gap (3-11) mmol/L 6.7 BUN (7-18) mg/dL 44 H Creatinine (0.55-1.02) mg/dL 1.5 H Est GFR (CKD-EPI 2020) (mL/min/1.73m2) 39.16 Glucose (74-106) mg/dL 284 H Calcium (8.5-10.1) mg/dL 9.3 Magnesium (1.8-2.4) mg/dL 2.3 Total Bilirubin (0.2-1.0) mg/dL 0.4 AST (15-37) U/L 19 ALT (14-59) U/L 8 L Alkaline Phosphatase (46-116) U/L 143 H Total Protein (6.4-8.2) g/dL 6.2 L Albumin (3.4-5.0) g/dL 2.1 L Procalcitonin ng/mL 0.5 Urine Color (Yellow) Urine Clarity (Clear) Urine pH (5-8) Ur Specific [place] (1.005-1.025) Urine Protein (Negative) mg/dL Urine Ketones (Negative) mg/dL Urine Blood (Negative) Urine Nitrite (Negative) Urine Bilirubin (Negative) Urine Urobilinogen (Up to 0.2) mg/dL Ur Leukocyte Esterase (Negative) Urine Glucose (Negative) mg/dL COVID-19 Source SARS-CoV-2 (PCR) (Negative) Influenza Type A (PCR) (Negative) Influenza Type B (PCR) (Negative) RSV (PCR) (Negative) Range/Units 01/31/23 01/31/23 21:00 21:00 WBC (4.4-10.8) 10^3/uL RBC (3.93-5.22) 10^6/uL Hgb (11.2-15.7) g/dL Hct (36.0-46.0) % MCV (80-95) fL MCH (27.0-33.0) pg MCHC (32.0-36.0) % RDW (11.7-14.6) % Plt Count (130-400) 10^3/uL MPV (8.0-11.0) fL Immature Gran % Neutrophils % Lymphocytes % Monocytes % Eosinophils % Basophils % Nucleated RBC % (0.0-0.3) % Absolute Neutrophils (1.2-6.7) 10^3/uL Absolute Lymphocytes (1.2-3.4) 10^3/uL Absolute Monocytes (0.1-0.8) 10^3/uL Absolute Eosinophils (0.0-0.7) 10^3/uL Absolute Basophils (0.0-0.2) 10^3/uL RBC Morphology Polychromasia Poikilocytosis Anisocytosis VBG Lactate (0.6-1.4) mmol/L Sodium (136-145) mmol/L Potassium (3.5-5.1) mmol/L Chloride (98-107) mmol/L Carbon Dioxide (21.0-32.0) mmol/L Anion Gap (3-11) mmol/L BUN (7-18) mg/dL Creatinine (0.55-1.02) mg/dL Est GFR (CKD-EPI 2020) (mL/min/1.73m2) Glucose (74-106) mg/dL Calcium (8.5-10.1) mg/dL Magnesium (1.8-2.4) mg/dL Total Bilirubin (0.2-1.0) mg/dL AST (15-37) U/L ALT (14-59) U/L Alkaline Phosphatase (46-116) U/L Total Protein (6.4-8.2) g/dL Albumin (3.4-5.0) g/dL Procalcitonin ng/mL Urine Color (Yellow) Yellow Urine Clarity (Clear) Clear Urine pH (5-8) 6.5 Ur Specific [place] (1.005-1.025) 1.015 Urine Protein (Negative) mg/dL Negative Urine Ketones (Negative) mg/dL Negative Urine Blood (Negative) Negative Urine Nitrite (Negative) Negative Urine Bilirubin (Negative) Negative Urine Urobilinogen (Up to 0.2) mg/dL 0.2 Ur Leukocyte Esterase (Negative) Negative Urine Glucose (Negative) mg/dL >=1000 H COVID-19 Source Nasopharynx SARS-CoV-2 (PCR) (Negative) Positive A Influenza Type A (PCR) (Negative) Negative Influenza Type B (PCR) (Negative) Negative RSV (PCR) (Negative) Negative Critical Care Time Critical Care Time Critical Care Time: Yes Total Critical Care Time: 60 Attestation: Due to septic shock secondary to COVID with high probability of imminent or life threatening deterioration in the patient?s condition without intervention and treatment. Time spent documenting, reviewing labs and radiographs, monitoring titration/ Vital signs, and speaking with hospitalist for ICU admission
--- NOTE | 2023-01-31 22:43 | W.EDPROG ---
Date of service: 01/31/23 Time of Service: 22:43 Medical Decision Making Patient was being seen and managed by provider Parminder Qureshi. Please refer to his HPI, physical exam, assessment and plan. I was asked to evaluate the patient when she was noted to have a blood pressure in the 60s systolic. She recently had a surgical procedure. She had a slightly low oxygen level, and was hypertensive. Heart rate was normal however she is on a beta-graciela. The rest of her exam appears to be stable at this point. Differential includes PE, sepsis, pneumonia, or viral etiology. Multiple peripheral lines were placed, including large-bore proximal catheters. Patient was started on Levophed, blood pressure normalized with this. Fluid resuscitation was started. Recommendation for broad-spectrum antibiotics to begin was performed. Bedside limited ultrasound demonstrates an ejection fraction around 65%. No evidence of significant right heart strain. IVC is measured at 2.5 cm, without significant collapse. COVID test did return positive, treatment for this will be given. Steroids/Decadron will be given, as well as antivirals. Agree with current management of the patient by Parminder Qureshi. Will recommend admission. Still pending imaging results. I independently performed a history and physical examination of the patient and discussed the management with the midlevel provider. I agree with the current plan of management at the time of signing. Critical Care Time Critical Care Time Critical Care Time: Yes Total Critical Care Time: 30 Attestation: Upon my evaluation, this patient had a high probability of imminent or life-threatening deterioration, which required my direct attention, intervention, and personal management. I have personally provided 30 minutes of critical care time exclusive of time spent on separately billable procedures. Time includes review of laboratory data, radiology results, discussion with consultants, and monitoring for potential decompensation. Interventions were performed as documented. Discharge Plan Disposition Patient Disposition: Admit to [facility] Discharge Details Clinical Impression: COVID, Sepsis, Acute kidney injury, Anemia Primary Care Provider: Ana Gillespie ED Provider: Parminder Qurehsi Home Meds and New Rx's Prescriptions: No Action bupropion HCl 100 mg tablet 300 mg PO DAILY Patient Comments: via g-tube, per pcp ov notes 12/09/22 RH Humulin N NPH Insulin KwikPen 100 unit/mL (3 mL) insulin pen See Rx Instructions SUBCUT DAILY Rx Instructions: 17 units subcutaneously at start of tube feet and again 6 hrs later 12/16/22 per PCP notes RH protein Powder PO insulin aspart U-100 [Novolog FlexPen U-100 Insulin] 100 unit/mL (3 mL) insulin pen 5 unit subcut TID Rx Instructions: Inject 1 unit subcutaneously twice a day as directed, inject 2 units for BG 151-250, 3 units for BG 251-300, 4 units for BG 301-350 gabapentin 300 mg capsule 900 mg feeding tube TID Patient Comments: via g-tube Entresto 24-26 mg tablet 1 tab feeding tube DAILY Patient Comments: via g-tube Jardiance 10 mg tablet 10 mg PO DAILY insulin glargine [Lantus U-100 Insulin] 100 unit/mL solution 10 unit subcut QPM quetiapine 100 mg tablet 100 mg PO QHS atorvastatin 80 mg tablet 80 mg PO DAILY valproic acid (as sodium salt) 250 mg/5 mL solution 300 mg PO TID Rx Instructions: 6mls TID metoprolol succinate 50 mg tablet extended release 24 hr 50 mg PO DAILY spironolactone 25 mg tablet 12.5 mg PO DAILY melatonin 3 mg capsule 9 mg PO HS PRN Patient Comments: via g-tube ibuprofen 100 mg/5 mL suspension 600 mg PO Q8H Qty: 473 0RF sucralfate 1 gram tablet 1 g PO QID Patient Comments: TAKE ONE TABLET BY MOUTH FOUR TIMES A DAY folic acid 1 mg Tablet 1 mg PO DAILY Qty: 0 0RF multivitamin [Multiple Vitamins] Tablet 1 tab PO DAILY Qty: 30 0RF ferrous sulfate 300 mg (60 mg iron)/5 mL liquid .QOD Patient Comments: TAKE 5ML VIA G-TUBE EVERY OTHER DAY acetaminophen [Mapap (acetaminophen)] 500 mg/15 mL liquid PRN Patient Comments: TAKE 30ML BY MOUTH EVERY 8 HOURS NEEDED pantoprazole [Protonix] 40 mg tablet,delayed release (DR/EC) 40 mg PO BID Qty: 60 0RF acetaminophen 500 mg/15 mL liquid 1,000 mg PO Q8H PRNQty: 237 2RF aspirin [Aspirin Childrens] 81 mg tablet,chewable 81 mg PO BID Qty: 60 0RF Rx Instructions: via g-tube dexamethasone 0.5 mg/5 mL solution 4 mg PO ONCE Qty: 240 0RF Rx Instructions: Take 4 mg (40 mL) once a day for first two days postoperatively oxycodone 5 mg/5 mL solution 5 mg PO Q6H PRN (Reason: pain) Qty: 90 0RF Rx Instructions: 2.5-5mL per G-tube for pain
--- NOTE | 2023-01-31 22:56 | DI.VRAD_ITS ---
PROCEDURE INFORMATION: Exam: CTA Chest With Contrast Exam date and time: 01/31/2023 10:04 PM Age: 62 years old Clinical indication: Abdominal tenderness; Fever and other: Recent hip surgery; Prior surgery; Surgery date: 3-7 days post-operative; Surgery type: Hip surgery; Patient HX: Recent surgery, R/O pe TECHNIQUE: Imaging protocol: Computed tomographic angiography of the chest with contrast. Exam focused on the arteries. 3D rendering (Not supervised by radiologist): MIP and/or 3D reconstructed images were created by the technologist. Radiation optimization: All CT scans at this facility use at least one of these dose optimization techniques: automated exposure control; mA and/or kV adjustment per patient size (includes targeted exams where dose is matched to clinical indication); or iterative reconstruction. Contrast material: OMNPAQUE 350; Contrast volume: 100 ml; Contrast route: INTRAVENOUS (IV); COMPARISON: CT CHEST PE CTA 08/12/2022 3:23 PM FINDINGS: Mildly limited due to motion artifact Pulmonary arteries: No pulmonary emboli. Aorta: Unremarkable. No aortic aneurysm. No aortic dissection. Lungs: Mild ground-glass/interstitial opacities in the left . Minimal opacities on the right No consolidation. No masses. 2 mm nodule right middle lobe Pleural spaces: No pneumothorax. No pleural effusion. Heart: No cardiomegaly. No pericardial effusion. Lymph nodes: Mildly enlarged hilar and mediastinal lymph nodes. Bones/joints: No acute fracture. Soft tissues: Unremarkable. Dilated esophagus with wall thickening and fluid level noted IMPRESSION: No pulmonary emboli observed Mild left greater than right pneumonitis versus asymmetric edema 2 mm right middle lobe pulmonary nodule, grossly stable Esophageal dysmotility versus chronic gastroesophageal reflux PROCEDURE INFORMATION: Exam: CT Abdomen And Pelvis With Contrast Exam date and time: 01/31/2023 10:04 PM Age: 62 years old Clinical indication: Abdominal tenderness; Fever and other: Recent hip surgery; Prior surgery; Surgery date: 3-7 days post-operative; Surgery type: Hip surgery; Patient HX: Recent surgery, R/O pe TECHNIQUE: Imaging protocol: Computed tomography of the abdomen and pelvis with contrast. Radiation optimization: All CT scans at this facility use at least one of these dose optimization techniques: automated exposure control; mA and/or kV adjustment per patient size (includes targeted exams where dose is matched to clinical indication); or iterative reconstruction. Contrast material: OMNPAQUE 350; Contrast volume: 100 ml; Contrast route: INTRAVENOUS (IV); COMPARISON: CT ABDOMEN PELVIS W 07/17/2021 9:34 AM FINDINGS: Liver: Fatty infiltration . Small cyst adjacent to the IVC superiorly Gallbladder and bile ducts: Contracted with faint gallstones noted. No ductal dilation. Pancreas: Normal. No ductal dilation. Spleen: Normal. No splenomegaly. Adrenal glands: Normal. No mass. Kidneys and ureters: Normal. No hydronephrosis. Stomach and bowel: Gastrostomy tube in the stomach. Moderate dense stool in the colon No obstruction. No mucosal thickening. Appendix: No evidence of appendicitis. Intraperitoneal space: Unremarkable. No free air. No significant fluid collection. Vasculature: Unremarkable. No abdominal aortic aneurysm. Lymph nodes: Unremarkable. No enlarged lymph nodes. Urinary bladder: Partially decompressed by a Mcrae catheter. Reproductive: Unremarkable as visualized. Bones/joints: Left hip arthroplasty No acute fracture. Soft tissues: Unremarkable. IMPRESSION: Gallstones Otherwise, no acute findings Dictated and Authenticated by: Antwan Booth MD. Ordering:FARHAD Guevara MD
[2023-01-31] MEDS: Dexamethasone 10 MG/ML VIAL IVP (23:00)
--- NOTE | 2023-01-31 23:04 | HPE_ITS ---
Date of service: 01/31/23 Time of Service: 23:05 Assessment and Plan Assessment and plan (1) COVID: Status: Acute Assessment and plan: Hypotension is most striking feature here, but unclear if this is reflective of acute process (viz, sepsis) or more that of recent post-op baseline from blood loss -- exacerbated by continuance of Lopressor (note absence of reflex tachycardia) and Entresto. Arguing against a picture of sepsis is normal white count and virtually normal Procal. I think a plausible scenario is that she has acute COVID, with hemodynamics unsettled from prior factors. On balance though I think it best if we cover for both scenarios until things clarify. ID: Continue triple antibiotics and await cultures COVID: Remdesivir/Dexa: Post op anemia: transfuse one unit in setting of hypotension Hypotension: continue IVF and pressors for MAP >60; hold beta graciela and Entresto Reviewed ADs, requests Full Code. History of Present Illness History of Present Illness Chief Complaint: weakness Narrative: 62 female with h/o CAD, CHF, DM -- discharged 01/20 following repair left hip fracture. Pre-op Hct 41, psot op 30; and last recorded BP on discharge was 70/sys. Has been continuing usual meds, including Metoprolol and Entresto. Here now with one day of weakness. EMS report fever but not recorded here. On arrival BP 74/29, temp 37.3, O2 sat 90% RA. Patient given 1 L NS and started on Levophed. Patient has been cultured, and given doses of Vanco, Zosyn and Zithro. COVID positive and given dose Dexa. CT chest of note for ground glass opacities left>right. White count 6.3, with shift but no bands, and lymphopenia. Procal 0.5, lactate 2.3. EKG without ischemic changes, no acute changes. Trop pending. I was asked to evaluate for admission. Patient states she has had a slight cough. Denies SOB or CP. Says she is fully vaccinated. Review of Systems Narrative: per HPI PFSH All Active Problems (Updated 01/31/23 @ 23:16 by Geronimo Ortiz MD) COVID (Acute) History of total left hip arthroplasty (Acute 01/19/23) 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 (Acute) s/p Hardware Removal and KYUNG (01-19-23) Depression (Chronic) Bipolar 1 disorder (Acute) Diabetes (Chronic) Cholelithiasis (Chronic) Ventral hernia (Acute) Leukocytosis (Acute) Pleural effusion (Acute) Black tarry stools (Acute) Chronic diarrhea (Acute) Farrell's esophagus (Chronic) Esophageal ulcer with bleeding (Acute) Erosive esophagitis (Acute) Farrell's 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 (Acute) Hyperplastic colon polyp (Acute ~06/10/21) Tubular adenoma (Acute ~06/10/21) Neuroleptic induced parkinsonism (Acute) Drug-induced parkinsonism (Acute) Anemia (Chronic) Status post hip surgery (Acute) H/O: pneumonia (Acute) Abnormal chest xray (Acute) Pre-op evaluation (Acute) Medical History Acute cardiogenic pulmonary edema Acute metabolic encephalopathy Acute respiratory failure with hypoxia Alcohol abuse Per pt. states she has never had an issues with any subtances Anxiety Bilateral pneumonia Chronic iron deficiency anemia Chronic pancreatitis due to acute alcohol intoxication Closed fracture of neck of left femur s/p Percutaneous Screw Fixation 08/09/22 Constipation Diabetes mellitus type 2 in obese ETOH abuse History of pilonidal cyst Hypokalemia NSTEMI (non-ST elevated myocardial infarction) Per pt. states she did not have a heart attack Poorly controlled diabetes mellitus Stress-induced cardiomyopathy [place] [facility] [place], EF 25%, has since recovered [facility] Surgical History History of section History of colonoscopy with polypectomy (~06/10/21) History of esophagogastroduodenoscopy (EGD) (~06/10/21) History of hysterectomy History of tonsillectomy S/P laparoscopic procedure cyst removed from stomach per patient S/P surgical removal of pilonidal cyst Family History Father Hypertension Diabetes Heart disease Social History Smoking/Tobacco Use Status: Former Tobacco Use Quit Date: 02/07/21 Smoking risk assessment performed?: Yes Alcohol Intake: never Drug use: Never Substance use type: does not use Details: pt. 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 Meds Allergies and Home Medications Allergies Allergy/AdvReac Type Severity Reaction Status Date / Time metformin Allergy Unknown Verified 01/31/23 21:16 meperidine AdvReac gi upset Verified 01/31/23 21:16 Home Medications Medication Instructions Recorded Confirmed Type insulin aspart U-100 100 unit/mL 5 unit subcut TID 07/16/21 01/31/23 History (3 mL) subcutaneous pen (Novolog FlexPen U-100 Insulin aspart) pantoprazole 40 mg tablet,delayed 40 mg PO BID #60 tabs 07/19/21 01/31/23 Rx release (Protonix) sucralfate 1 gram tablet 1 g PO QID 08/08/22 01/31/23 History folic acid 1 mg tablet 1 mg PO DAILY #0 tabs 08/10/22 01/31/23 Rx multivitamin (Multiple Vitamins 1 tab PO DAILY #30 tabs 08/10/22 01/31/23 Rx tablet) atorvastatin 80 mg tablet 80 mg PO DAILY 11/18/22 01/31/23 History empagliflozin 10 mg tablet 10 mg PO DAILY 11/18/22 01/31/23 History (Jardiance) gabapentin 300 mg capsule 900 mg feeding tube TID 11/18/22 01/31/23 History insulin glargine 100 unit/mL 10 unit subcut QPM 11/18/22 01/31/23 History subcutaneous solution (Lantus U-100 Insulin) melatonin 3 mg capsule 9 mg PO HS PRN 11/18/22 01/31/23 History metoprolol succinate 50 mg 50 mg PO DAILY 11/18/22 01/31/23 History tablet,extended release 24 hr quetiapine 100 mg tablet 100 mg PO QHS 11/18/22 01/31/23 History sacubitril 24 mg-valsartan 26 mg 1 tab feeding tube DAILY 11/18/22 01/31/23 History tablet (Entresto) spironolactone 25 mg tablet 12.5 mg PO DAILY 11/18/22 01/31/23 History valproic acid (as sodium salt) 250 300 mg PO TID 11/18/22 01/31/23 History mg/5 mL oral solution bupropion HCl 100 mg tablet 300 mg PO DAILY 12/16/22 01/31/23 History insulin NPH isoph U-100 human 100 See Rx Instructions subcut DAILY 12/16/22 01/31/23 History unit/mL (3 mL) subcutaneous pen (Humulin N NPH U-100 Insulin KwikPen) protein pwd PO 12/16/22 01/08/23 History acetaminophen 500 mg/15 mL oral 1,000 mg (30 mL) PO Q8H PRN #237 mL 01/19/23 Rx liquid aspirin 81 mg chewable tablet 81 mg PO BID #60 tabs 01/19/23 01/31/23 Rx (Aspirin Childrens) dexamethasone 0.5 mg/5 mL oral 4 mg (40 mL) PO ONCE #240 mL 01/19/23 01/31/23 Rx solution oxycodone 5 mg/5 mL oral solution 5 mg (5 mL) PO Q6H PRN pain #90 mL 01/20/23 01/31/23 Rx ibuprofen 100 mg/5 mL oral 600 mg (30 mL) PO Q8H #473 mL 01/27/23 01/31/23 Rx suspension acetaminophen 500 mg/15 mL oral mg PRN 01/31/23 History liquid (Mapap (acetaminophen)) ferrous sulfate 300 mg (60 mg mg .QOD 01/31/23 History iron)/5 mL oral liquid Exam Narrative Exam Narrative: 90/50, 75, 37.3, 16, 98%. HEENT atraumatic; neck supple; lungs rales/rhonchi left base; heart RRR; abdomen soft and NT; extremities w/o edema; neuro Ox3, appears fatigued but is lucid, moves all 4s Results Labs 01/31/23 21:00 01/31/23 21:00 Labs: Laboratory Results - last 24 hr 01/31/23 01/31/23 01/31/23 21:00 21:00 21:00 WBC 6.89 RBC 3.36 L Hgb 8.9 L Hct 28.8 L MCV 86 MCH 26.5 L MCHC 30.9 L RDW 20.6 H Plt Count 268 MPV 10.8 Immature Gran % 0.7 Neutrophils % 83.4 Lymphocytes % 5.4 Monocytes % 7.7 Eosinophils % 2.2 Basophils % 0.6 Nucleated RBC % 0.0 Absolute Neutrophils 5.75 Absolute Lymphocytes 0.37 L Absolute Monocytes 0.53 Absolute Eosinophils 0.15 Absolute Basophils 0.04 RBC Morphology See Below Polychromasia Present Poikilocytosis 1+ Anisocytosis 2+ VBG Lactate 2.3 H* Sodium 136 Potassium 4.9 Chloride 102 Carbon Dioxide 27.3 Anion Gap 6.7 BUN 44 H Creatinine 1.5 H Est GFR (CKD-EPI 2020) 39.16 Glucose 284 H Calcium 9.3 Magnesium 2.3 Total Bilirubin 0.4 AST 19 ALT 8 L Alkaline Phosphatase 143 H Total Protein 6.2 L Albumin 2.1 L Procalcitonin 0.5 Urine Color Urine Clarity Urine pH Ur Specific [place] Urine Protein Urine Ketones Urine Blood Urine Nitrite Urine Bilirubin Urine Urobilinogen Ur Leukocyte Esterase Urine Glucose COVID-19 Source SARS-CoV-2 (PCR) Influenza Type A (PCR) Influenza Type B (PCR) RSV (PCR) 01/31/23 01/31/23 21:00 21:00 WBC RBC Hgb Hct MCV MCH MCHC RDW Plt Count MPV Immature Gran % Neutrophils % Lymphocytes % Monocytes % Eosinophils % Basophils % Nucleated RBC % Absolute Neutrophils Absolute Lymphocytes Absolute Monocytes Absolute Eosinophils Absolute Basophils RBC Morphology Polychromasia Poikilocytosis Anisocytosis VBG Lactate Sodium Potassium Chloride Carbon Dioxide Anion Gap BUN Creatinine Est GFR (CKD-EPI 2020) Glucose Calcium Magnesium Total Bilirubin AST ALT Alkaline Phosphatase Total Protein Albumin Procalcitonin Urine Color Yellow Urine Clarity Clear Urine pH 6.5 Ur Specific [place] 1.015 Urine Protein Negative Urine Ketones Negative Urine Blood Negative Urine Nitrite Negative Urine Bilirubin Negative Urine Urobilinogen 0.2 Ur Leukocyte Esterase Negative Urine Glucose >=1000 H COVID-19 Source Nasopharynx SARS-CoV-2 (PCR) Positive A Influenza Type A (PCR) Negative Influenza Type B (PCR) Negative RSV (PCR) Negative Last Vital Signs Temp 37.3 C 01/31/23 20:45 Pulse 75 01/31/23 22:46 Resp 16 01/31/23 22:50 BP 90/50 L 01/31/23 22:46 Pulse Ox 98 01/31/23 22:50 Time Spent Time spent with Patient: 55-74 minutes Time was spent: preparing to see the patient(eg.review tests), obtaining and/or reviewing separately otained hiistory, ordering medications,tests, procedures, referring, communicating with other health menagerie caretaker and indepentently interpreting results
[2023-01-31 23:12] LABS: C-Reactive Protein 8.96 mg/dL (0.0-0.3); PTT Activated 27.9 sec (21.5-31.9); Prothrombin Time 10.4 sec (9.3-11.0); Troponin I < 50 ng/L (<or=60)
[2023-01-31] MEDS: PIPERACILLIN/TAZO 4.5 GM in Normal Saline 100 ML IVPB (23:18)
[2023-01-31 23:28] LABS: D-Dimer 1759 ng/mlFEU (<500)
[2023-02-01] VITALS (152 sets, daily range): BP systolic 79–153; BP diastolic 41–74; PULSE 43–110; RESP 9–28; TEMP 36.5–37.4; O2SAT 85–100
[2023-02-01] MEDS: VANCOMYCIN 1,500 MG in Normal Saline 500 ML 333.3333 MG IVPB
--- NOTE | 2023-02-01 | DI.US_ITS ---
Exam(s) US EXTREMITY VENOUS BI EXAM: US EXTREMITY VENOUS BI CLINICAL HISTORY: Bilateral LE discomfort. + Covid with d-dimer TECHNIQUE: Grayscale, color, and doppler imaging of the deep venous system of both lower extremities was performed. COMPARISON: US POCUS EXAM from 02/01/2023 FINDINGS: There is no evidence of intraluminal thrombus and there is normal compression and augmentation demons trated within the common femoral veins, femoral veins, and popliteal veins of both lower extremities. In the calves the interrogated veins also exhibit normal compression/ augmentation properties. The greater saphenous veins also appear patent as do the saphenofemoral junctions bilaterally.. IMPRESSION: 1. No ultrasound evidence of DVT in either lower extremity. DATA REPOSITORY:
[2023-02-01] MEDS: REMDESIVIR 200 MG in Normal Saline 250 ML 250 MG IVPB (01:45)
[2023-02-01] MEDS: Normal Saline 1,000 ML 150 ML IV (02:15)
[2023-02-01] MEDS: Melatonin 3 MG TAB 9 MG PO ×2 (02:15→22:41)
[2023-02-01] MEDS: oxyCODONE 5 MG/5 ML CUP PO (02:15)
[2023-02-01] MEDS: PIPERACILLIN/TAZO 3.375 GM in Normal Saline 50 ML IVPB (03:56)
[2023-02-01 05:45] LABS: Lactate 0.8 mmol/L (0.6-1.4)
[2023-02-01 05:50] LABS: HCT 34.6 % (36.0-46.0); MCH 27.6 pg (27.0-33.0); MCHC 31.8 % (32.0-36.0); MCV 87 fL (80-95); MPV 10.9 fL (8.0-11.0); Platelet Count 265 10^3/uL (130-400); RBC 3.98 10^6/uL (3.93-5.22); RDW 18.9 % (11.7-14.6); RDW-SD 58.8 fL; WBC 6.95 10^3/uL (4.4-10.8)
--- NOTE | 2023-02-01 06:55 | PUCC_ITS ---
General Date of Service Date of service: 02/01/23 Time of Service: 06:56 Reason for Admission to ICU: Hypotension Assessment and Plan Assessment and plan (1) Hypovolemic shock: Status: Acute (2) COVID: Status: Acute (3) Respiratory failure with hypoxia: Status: Acute (4) History of total left hip arthroplasty: Status: Acute (5) Diabetes: Status: Chronic Qualifiers: Diabetes mellitus type: type 2 Diabetes mellitus long-term insulin use: with watermelon inspector use Diabetes mellitus complication status: without complication Qualified Code(s): E11.9 - Type 2 diabetes mellitus without complications; Z79.4 - roasterman (current) use of insulin (6) Atrial flutter: Status: Resolved (7) Lactic acidosis: Status: Acute (8) MARILIN (acute kidney injury): Status: Acute (9) Anemia: Status: Chronic Assessment and plan: This is a 62 yo admitted to the ICU with hypovolemic shock in the setting of COVID. I do not beleive her mild hypotension is due to COVID directly. She is very dry on exam and on POCUS, I suspect she is hypovolemic. On POCUS her IVC is collasible and on exam her mucus membranes are very dry. I will give her 1L of LR and start water through her PEG.She does have nodular infiltrates on CT so it is reasonable to continue antibiotics, however I changed them to cefepime and azithromycin. Vancomycin is not needed as she has a recent MRSA swab which was negative. I have ordered for a nutrition consult to assist with her tube feeds. I have also stopped her ibu profen given MARILIN and ICU status. For her COVID, she should be on barcitinib so I have added this as well. The largest benefit seen as been with barcitinib and dexamethasone in combination. I doubt the remdesivir is helpful, but will continue this per guideline drive care. Recommendations Pulmonary: Hypoxic respiratory failure - O2 goal >90% - albuterol inhaler QID added\ - titrate O2 as able Cardiac: Hypovolemic Shock - stop NS at 150 - give 1L LR bolus - titrate norepinephrine off for MAP goal 65mmHg - consider another bolus if still dry - hold BP meds Atrial Flutter - monitor on tele Renal: MARILIN - likely prerenal - 1L LR bolus this morning - continue to monitor I&O: Intake & Output 01/29/23 01/30/23 01/31/23 09/25/23 23:59 23:59 23:59 23:59 Intake Total 4542.812 / 4542.812 Output Total 2450 / 2450 Balance 2092.812 / 2092.812 Weight 75.8 kg 71.6 kg Daily Fluid Goal:: positive GI Nutrition: Nutrition - 150cc q4h water through PEG - nutrition consult to assist with tube feeds Infectious Disease: COVID - remdesivir, dexamethasone - barcitinib started - labs ordered including inflammatory markers - cefepime and azithromycin for now Hematologic: Anemia - will watch Neurologic: Prior CVA - no acute concerns Endocrine: Diabetes - on SSI coverage - hold oral diabetes meds while in ICU Lines: PIV [place] Prophylaxis: Lovenox Pantoprazole - home meds Code Status: Resuscitation Status Full Code Subjective Critical and life-threatening events over the past 24 hours: This is a 62 yo with a history of CVA, recent left hip replacement admitted to the ICU for hypotension in the setting of COVID. She was on dex and remdesivir for COVID along with Zosyn, azithromycin and vancomycin. She has been requiring Levophed, which unfortunately has been going through a distal PIV all night. She had a CT C/A/P which found multilobar nodular infiltrates and non obstructing gall stones. She states she is doing okay but feels tired. She complains of left hip pain no pain elsewhere. She states she cannot remember what her tube feeds are or how much but her will know that. She has a poor memory. Exam Narrative Exam Narrative: Gen: NAD, normal respiratory effort, well-nourished HENT: PERRL, dry mucus membranes Chest: No respiratory distress, normal appearance of chest, clear to auscultation bilaterally, bilateral coarse crackles Heart: regular rate and rhythym, no murmurs, rubs or gallops Abdomen: Non-distended, soft, non tender Extremities: No clubbing, or cyanosis. Bilateral pitting edema - compression stockings around ankles and placed on upside down Neuro: AAOx3 , non focal Psych: cooperative, appropriate mental affect Most Recent VS/Results Last Vital Signs Temp 36.8 C 02/01/23 04:15 Pulse 62 02/01/23 04:02 Resp 16 02/01/23 04:15 BP 131/60 02/01/23 04:02 Pulse Ox 96 02/01/23 04:15 Laboratory Results - last 24 hr 01/31/23 01/31/23 01/31/23 21:00 21:00 21:00 WBC 6.89 RBC 3.36 L Hgb 8.9 L Hct 28.8 L MCV 86 MCH 26.5 L MCHC 30.9 L RDW 20.6 H Plt Count 268 MPV 10.8 Immature Gran % 0.7 Neutrophils % 83.4 Lymphocytes % 5.4 Monocytes % 7.7 Eosinophils % 2.2 Basophils % 0.6 Nucleated RBC % 0.0 Absolute Neutrophils 5.75 Absolute Lymphocytes 0.37 L Absolute Monocytes 0.53 Absolute Eosinophils 0.15 Absolute Basophils 0.04 RBC Morphology See Below Polychromasia Present Poikilocytosis 1+ Anisocytosis 2+ PT INR APTT D-Dimer VBG Lactate 2.3 H* Sodium 136 Potassium 4.9 Chloride 102 Carbon Dioxide 27.3 Anion Gap 6.7 BUN 44 H Creatinine 1.5 H Est GFR (CKD-EPI 2020) 39.16 Glucose 284 H Calcium 9.3 Magnesium 2.3 Total Bilirubin 0.4 AST 19 ALT 8 L Alkaline Phosphatase 143 H Troponin I C-Reactive Protein Total Protein 6.2 L Albumin 2.1 L Procalcitonin 0.5 Urine Color Urine Clarity Urine pH Ur Specific [place] Urine Protein Urine Ketones Urine Blood Urine Nitrite Urine Bilirubin Urine Urobilinogen Ur Leukocyte Esterase Urine Glucose COVID-19 Source SARS-CoV-2 (PCR) Influenza Type A (PCR) Influenza Type B (PCR) RSV (PCR) Patient ABO/Rh Antibody Screen Crossmatch 01/31/23 01/31/23 01/31/23 21:00 21:00 22:40 WBC RBC Hgb Hct MCV MCH MCHC RDW Plt Count MPV Immature Gran % Neutrophils % Lymphocytes % Monocytes % Eosinophils % Basophils % Nucleated RBC % Absolute Neutrophils Absolute Lymphocytes Absolute Monocytes Absolute Eosinophils Absolute Basophils RBC Morphology Polychromasia Poikilocytosis Anisocytosis PT INR APTT D-Dimer VBG Lactate Sodium Potassium Chloride Carbon Dioxide Anion Gap BUN Creatinine Est GFR (CKD-EPI 2020) Glucose Calcium Magnesium Total Bilirubin AST ALT Alkaline Phosphatase Troponin I < 50 C-Reactive Protein 8.96 H Total Protein Albumin Procalcitonin Urine Color Yellow Urine Clarity Clear Urine pH 6.5 Ur Specific [place] 1.015 Urine Protein Negative Urine Ketones Negative Urine Blood Negative Urine Nitrite Negative Urine Bilirubin Negative Urine Urobilinogen 0.2 Ur Leukocyte Esterase Negative Urine Glucose >=1000 H COVID-19 Source Nasopharynx SARS-CoV-2 (PCR) Positive A Influenza Type A (PCR) Negative Influenza Type B (PCR) Negative RSV (PCR) Negative Patient ABO/Rh Antibody Screen Crossmatch 01/31/23 01/31/23 02/01/23 22:40 23:57 05:35 WBC 6.95 RBC 3.98 Hgb 11.0 L D Hct 34.6 L MCV 87 MCH 27.6 MCHC 31.8 L RDW 18.9 H Plt Count 265 MPV 10.9 Immature Gran % Neutrophils % Lymphocytes % Monocytes % Eosinophils % Basophils % Nucleated RBC % Absolute Neutrophils Absolute Lymphocytes Absolute Monocytes Absolute Eosinophils Absolute Basophils RBC Morphology Polychromasia Poikilocytosis Anisocytosis PT 10.4 INR 1.0 APTT 27.9 D-Dimer 1759 H VBG Lactate Sodium Potassium Chloride Carbon Dioxide Anion Gap BUN Creatinine Est GFR (CKD-EPI 2020) Glucose Calcium Magnesium Total Bilirubin AST ALT Alkaline Phosphatase Troponin I C-Reactive Protein Total Protein Albumin Procalcitonin Urine Color Urine Clarity Urine pH Ur Specific [place] Urine Protein Urine Ketones Urine Blood Urine Nitrite Urine Bilirubin Urine Urobilinogen Ur Leukocyte Esterase Urine Glucose COVID-19 Source SARS-CoV-2 (PCR) Influenza Type A (PCR) Influenza Type B (PCR) RSV (PCR) Patient ABO/Rh O Positive Antibody Screen NEGATIVE Crossmatch See Detail 02/01/23 05:35 WBC RBC Hgb Hct MCV MCH MCHC RDW Plt Count MPV Immature Gran % Neutrophils % Lymphocytes % Monocytes % Eosinophils % Basophils % Nucleated RBC % Absolute Neutrophils Absolute Lymphocytes Absolute Monocytes Absolute Eosinophils Absolute Basophils RBC Morphology Polychromasia Poikilocytosis Anisocytosis PT INR APTT D-Dimer VBG Lactate 0.8 Sodium Potassium Chloride Carbon Dioxide Anion Gap BUN Creatinine Est GFR (CKD-EPI 2020) Glucose Calcium Magnesium Total Bilirubin AST ALT Alkaline Phosphatase Troponin I C-Reactive Protein Total Protein Albumin Procalcitonin Urine Color Urine Clarity Urine pH Ur Specific [place] Urine Protein Urine Ketones Urine Blood Urine Nitrite Urine Bilirubin Urine Urobilinogen Ur Leukocyte Esterase Urine Glucose COVID-19 Source SARS-CoV-2 (PCR) Influenza Type A (PCR) Influenza Type B (PCR) RSV (PCR) Patient ABO/Rh Antibody Screen Crossmatch Review of Systems All systems reviewed & are unremarkable except as noted in HPI and below Time spent with patient Time spent in Critical Care: 60 Time spent in Critical care included: Chart review, Documenting critically ill care, Time at immediate bedside, Discussing critically ill care with other medical staff and Other (POCUS) Pocus Exam Limited Cardiac Exam DATE OF EXAM: 02/01/23 TIME OF EXAM: 07:30 PROVIDER THAT PERFORMED THE STUDY: Veena Smalls IS THIS A REPEAT EXAM DURING THIS ENCOUNTER: no REASON FOR EXAM: Hypotension VISUALIZED STRUCTURES: four chambers, Interventricular septum and IVC VIEW OBTAINED: Apical 4-Chamber, Parasternal long-axis, Parasternal short-axis and Subxiphoid PERTINENT FINDINGS/IMPRESSION: IVC inspiratory collapsability Exam complete Multi-Disciplinary Checklist Lines/Tubes CENTRAL LINE: no ARTERIAL LINE: no GRISSOM: yes, Grissom Day#: 1 ENDOTRACHEAL TUBE: no ICU Maintenance GLUCOSE 140-180mg/dL: no, Reason/Intervention: on sliding scale insulin, will monitor NUTRITION AT GOAL: no, Reason/Intervention: nutrition consult for tube feeds PRESSURE ULCER: no RESTRAINTS: no ANTIBIOTICS(if yes, consider Stewardship): Yes Social Issues FAMILY UPDATED: no, Reason/Intervention: defer to hospitalist PT/OT: no, Reason/Intervention: not currently appropriate, reconsider when off pressors GOALS/DISPOSITION/OCEANOGRAPHER PHYSICAL: yes CODE STATUS: Full Prophylaxis DVT PROPHYLAXIS: yes GI PROPHYLAXIS: yes, Indication: home med
[2023-02-01] MEDS: Lactated Ringers 1,000 ML 1000 ML IV (07:40)
--- NOTE | 2023-02-01 07:58 | NUR.NOTE ---
Nursing Note: Patient's here to visit patient. He was dressed in the proper PPI with assistance prior to going into patient's room.
[2023-02-01] MEDS: buPROPion 100 MG TAB 300 MG UD (09:17)
[2023-02-01] MEDS: Enoxaparin 40 MG/0.4 ML SYR SC (09:17)
[2023-02-01] MEDS: Gabapentin 300 MG CAP 900 MG NG ×3 (09:18→20:38)
[2023-02-01] MEDS: Aspirin 81 MG CHEW PO ×2 (09:18→20:33)
[2023-02-01] MEDS: Pantoprazole 40 MG TABCR PO (09:18)
[2023-02-01] MEDS: Sucralfate 1 GM TAB PO ×4 (09:18→22:20)
[2023-02-01] MEDS: CEFEPIME 1 GM in Normal Saline 50 ML IVPB ×2 (09:19→16:28)
[2023-02-01] MEDS: Folic Acid 1 MG TAB PO (09:19)
[2023-02-01] MEDS: Dexamethasone 4 MG TAB PO (09:19)
[2023-02-01] MEDS: Multivitamin TAB 1 TAB PO (09:19)
--- NOTE | 2023-02-01 09:28 | W.NUTCONSULT ---
Date of service: 02/01/23 Time of Service: 09:29 Nutritional Consult ASSESSMENT: received nutrition consult along with call from ICU staff, requesting recommendation for enteral feeding during admission, as pt takes 1.5kcal/mL tube feed at home: 70mL per hour, run for 12 hours (nurse said centrum1.5 but I suspect she meant Nutren1.5 formula). Routine diabetes education consult also received and will provide once pt is more appropriate to visit (corrently COVID +). Pt recent d/c post total L hip replacement, and returns with MARILIN, COVID/Resp Failure, Sepsis. PMH significant for Diabetes, Esophageal ulcer with bleeding, Erosive Esophagitis, Farrell's Esophagus and chronic pancreatitis with suspected chronic Etoh abuse. At home pt takes 17units Humulin @ start of tube feed and then another 6 hours later, 10units Lantus q PM, sliding scale novolog 2x daily for correction, and 10mg jardiance daily. Estimated energy needs are 1815kcals ([id number]), 71.6g protein (1g/kg) and 1815mL fluid (1mL per required kcal) NUTRITIONAL DIAGNOSIS: Inadequate oral food intake related to compromised esophageal integrity as evidenced by esophageal erosion with ulcers, barretts's esophagus in her PMH. 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 This will provide 1242.5kcals (meets 68% of kcal needs), 52.9g protein (meets 74% of her protein needs), and 630mL fluid (meets 35% of her fluid needs). Recommend flushing PEG tube before and after her 12 hour feeds with 60mL water for an additional 120mL. MONITORING AND EVALUATION: Will monitor PO intake of meals and fluids, wt changes, to determine any adjustments in her enteral feeding recommendation Time Spent in Nutritional Counseling and Treatment: 0
[2023-02-01] MEDS: Insulin Aspart 300 UNITS/3 ML PEN SC (09:40)
--- NOTE | 2023-02-01 09:45 | INITIAL_ITS ---
Date of service: 02/01/23 Time of Service: 10:06 Care Management Initial Assmt Initial Assessment REASON FOR HOSPITALIZATION:: COVID, hypotension PREVIOUS FUNCTIONAL STATUS/SOCIAL/FAMILY SUPPORTS:: Jennifer lives in [facility] with her Campos. 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 She and her have two adult sons, one of whom lives locally and is supportive of the couple. Jennifer is independent with her ADLs at baseline. CURRENT FUNCTIONAL STATUS:: Jennifer is currently in the ICU, being closely monitored for COVID ADVANCE DIRECTIVES:: none on file Has patient been provided with info about the portal/API?: Yes Did the patient sign up for the portal?: No CODE STATUS:: Full Code INSURANCE COVERAGE / FINANCIAL ISSUES:: Medicaid CURRENT HOME/COMMUNITY SERVICES/EQUIPMENT:: PT. patient has a walker PRIMARY CARE PHYSICIAN:: Ana Gillespie POTENTIAL DISCHARGE NEEDS:: follow up with PCP and plan of care PATIENT/FAMILY EDUCATION NEEDS:: Review of discharge instructions, limitations, activity, follow up plan, discuss Ask Me Three TRANSPORTATION:: via private vehicle with family PLAN:: Jennifer remains in the ICU on precautions for COVID, CM continues to follow. PFSH All Active Problems (Updated 02/01/23 @ 08:45 by Veena Smalls MD) Respiratory failure with hypoxia (Acute) Hypovolemic shock (Acute) MARILIN (acute kidney injury) (Acute) Lactic acidosis (Acute) COVID (Acute) History of total left hip arthroplasty (Acute 01/19/23) 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 (Acute) s/p Hardware Removal and KYUNG (01-19-23) Depression (Chronic) Bipolar 1 disorder (Acute) Diabetes (Chronic) Cholelithiasis (Chronic) Ventral hernia (Acute) Leukocytosis (Acute) Pleural effusion (Acute) Black tarry stools (Acute) Chronic diarrhea (Acute) Farrell's esophagus (Chronic) Esophageal ulcer with bleeding (Acute) Erosive esophagitis (Acute) Farrell's 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 (Acute) Hyperplastic colon polyp (Acute ~06/10/21) Tubular adenoma (Acute ~06/10/21) Neuroleptic induced parkinsonism (Acute) Drug-induced parkinsonism (Acute) Anemia (Chronic) Status post hip surgery (Acute) H/O: pneumonia (Acute) Abnormal chest xray (Acute) Pre-op evaluation (Acute) Medical History Acute cardiogenic pulmonary edema Acute metabolic encephalopathy Acute respiratory failure with hypoxia Alcohol abuse Per pt. states she has never had an issues with any subtances Anxiety Bilateral pneumonia Chronic iron deficiency anemia Chronic pancreatitis due to acute alcohol intoxication Closed fracture of neck of left femur s/p Percutaneous Screw Fixation 08/09/22 Constipation Diabetes mellitus type 2 in obese ETOH abuse History of pilonidal cyst Hypokalemia NSTEMI (non-ST elevated myocardial infarction) Per pt. states she did not have a heart attack Poorly controlled diabetes mellitus Stress-induced cardiomyopathy acute onset managed at [facility] 08/30 pressors, EF 25%, has since recovered RH Surgical History History of section History of colonoscopy with polypectomy (~06/10/21) History of esophagogastroduodenoscopy (EGD) (~06/10/21) History of hysterectomy History of tonsillectomy S/P laparoscopic procedure cyst removed from stomach per patient S/P surgical removal of pilonidal cyst Family History Father Hypertension Diabetes Heart disease Social History Smoking/Tobacco Use Status: Former Tobacco Use Quit Date: 02/07/21 Smoking risk assessment performed?: Yes Alcohol Intake: never Drug use: Never Substance use type: does not use Details: pt. 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 Readmission Within the Past 30 Days Yes or No: Yes Date of First Admission Date of 1st Admission: 01/19/23 Date of this Admission Date of Admission: 01/31/23 Assessment for Readmission Summary of readmission circumstances, based upon interviews: Last admission was with Ortho for Left Hip DJD. This admission is attributed to COVID and hypotension.
[2023-02-01 10:07] LABS: ALT 14 U/L (14-59); AST 21 U/L (15-37); Alkaline Phosphatase 142 U/L (46-116); Anion Gap 7.9 mmol/L (3-11); BUN 31 mg/dL (7-18); Bilirubin, Total 0.3 mg/dL (0.2-1.0); C-Reactive Protein 12.92 mg/dL (0.0-0.3); CO2 26.1 mmol/L (21.0-32.0); Calcium 8.8 mg/dL (8.5-10.1); Chloride 108 mmol/L (98-107); Glucose 185 mg/dL (74-106); Potassium 4.7 mmol/L (3.5-5.1); Sodium 142 mmol/L (136-145); Total Protein 6.1 g/dL (6.4-8.2)
[2023-02-01 10:25] LABS: D-Dimer 2422 ng/mlFEU (<500)
[2023-02-01 10:30] LABS: Ferritin 220 ng/mL (8-252)
--- NOTE | 2023-02-01 10:39 | W.PM.PROGNOT ---
Date of Service Date of service: 02/01/23 Time of Service: 10:42 Assessment and Plan Assessment and plan (1) COVID: Status: Acute Assessment and plan: Hypotension is most striking feature here, but unclear if this is reflective of acute process (viz, sepsis) or more that of recent post-op baseline from blood loss -- exacerbated by continuance of Lopressor (note absence of reflex tachycardia) and Entresto. Arguing against a picture of sepsis is normal white count and virtually normal Procal. I think a plausible scenario is that she has acute COVID, with hemodynamics unsettled from prior factors. On balance though I think it best if we cover for both scenarios until things clarify. IV fluid boluses. Wean off norepi when possible. Holding BB and Entresto. Cont remdesivir and dexamethasone DVT prophylaxis with lovenox. WBC count normal. Procal 0.5. Continuing cefepime and azithromycin. Stopped vancomycin. (2) History of total left hip arthroplasty: Status: Acute Assessment and plan: Has been progressing well at home. Cont PT (3) Bipolar 1 disorder: Status: Acute Assessment and plan: Cont buproprion. (4) Atrial flutter: Status: Resolved Assessment and plan: Currently in sinus rhythm. (5) Diabetes: Status: Chronic Assessment and plan: Adequately controlled. SS insulin correction dosage. 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 Hgb now 11.0. Monitor. Subjective Subjective Patient reports: no new complaints and afebrile; denies diarrhea, nausea, vomiting or shortness of breath (at rest) Interval history since last seen: Feel tired Exam Narrative Exam Narrative: Gen: Lying supine. NAD. Interactive. HEENT: sclera clear. MMM Lungs: Clear in anterior lung howard. Nonlabored breathing. CV: RRR. Abdomen: soft, NT. Exts: w/o edema, No calf tenderness. Neuro: A&Ox3, appears fatigued but is lucid Objective Last Vital Signs Temp 37.2 C 02/01/23 07:15 Pulse 62 02/01/23 08:32 Resp 14 02/01/23 08:41 BP 130/57 L 02/01/23 08:32 Pulse Ox 95 02/01/23 08:58 Laboratory Results - last 24 hr 01/31/23 01/31/23 01/31/23 21:00 21:00 21:00 WBC 6.89 RBC 3.36 L Hgb 8.9 L Hct 28.8 L MCV 86 MCH 26.5 L MCHC 30.9 L RDW 20.6 H Plt Count 268 MPV 10.8 Immature Gran % 0.7 Neutrophils % 83.4 Lymphocytes % 5.4 Monocytes % 7.7 Eosinophils % 2.2 Basophils % 0.6 Nucleated RBC % 0.0 Absolute Neutrophils 5.75 Absolute Lymphocytes 0.37 L Absolute Monocytes 0.53 Absolute Eosinophils 0.15 Absolute Basophils 0.04 RBC Morphology See Below Polychromasia Present Poikilocytosis 1+ Anisocytosis 2+ PT INR APTT D-Dimer VBG Lactate 2.3 H* Sodium 136 Potassium 4.9 Chloride 102 Carbon Dioxide 27.3 Anion Gap 6.7 BUN 44 H Creatinine 1.5 H Est GFR (CKD-EPI 2020) 39.16 Glucose 284 H Calcium 9.3 Magnesium 2.3 Ferritin Total Bilirubin 0.4 AST 19 ALT 8 L Alkaline Phosphatase 143 H Troponin I C-Reactive Protein Total Protein 6.2 L Albumin 2.1 L Procalcitonin 0.5 Urine Color Urine Clarity Urine pH Ur Specific [place] Urine Protein Urine Ketones Urine Blood Urine Nitrite Urine Bilirubin Urine Urobilinogen Ur Leukocyte Esterase Urine Glucose COVID-19 Source SARS-CoV-2 (PCR) Influenza Type A (PCR) Influenza Type B (PCR) RSV (PCR) Patient ABO/Rh Antibody Screen Crossmatch 01/31/23 01/31/23 01/31/23 21:00 21:00 22:40 WBC RBC Hgb Hct MCV MCH MCHC RDW Plt Count MPV Immature Gran % Neutrophils % Lymphocytes % Monocytes % Eosinophils % Basophils % Nucleated RBC % Absolute Neutrophils Absolute Lymphocytes Absolute Monocytes Absolute Eosinophils Absolute Basophils RBC Morphology Polychromasia Poikilocytosis Anisocytosis PT INR APTT D-Dimer VBG Lactate Sodium Potassium Chloride Carbon Dioxide Anion Gap BUN Creatinine Est GFR (CKD-EPI 2020) Glucose Calcium Magnesium Ferritin Total Bilirubin AST ALT Alkaline Phosphatase Troponin I < 50 C-Reactive Protein 8.96 H Total Protein Albumin Procalcitonin Urine Color Yellow Urine Clarity Clear Urine pH 6.5 Ur Specific [place] 1.015 Urine Protein Negative Urine Ketones Negative Urine Blood Negative Urine Nitrite Negative Urine Bilirubin Negative Urine Urobilinogen 0.2 Ur Leukocyte Esterase Negative Urine Glucose >=1000 H COVID-19 Source Nasopharynx SARS-CoV-2 (PCR) Positive A Influenza Type A (PCR) Negative Influenza Type B (PCR) Negative RSV (PCR) Negative Patient ABO/Rh Antibody Screen Crossmatch 01/31/23 01/31/23 02/01/23 22:40 23:57 05:35 WBC 6.95 RBC 3.98 Hgb 11.0 L D Hct 34.6 L MCV 87 MCH 27.6 MCHC 31.8 L RDW 18.9 H Plt Count 265 MPV 10.9 Immature Gran % Neutrophils % Lymphocytes % Monocytes % Eosinophils % Basophils % Nucleated RBC % Absolute Neutrophils Absolute Lymphocytes Absolute Monocytes Absolute Eosinophils Absolute Basophils RBC Morphology Polychromasia Poikilocytosis Anisocytosis PT 10.4 INR 1.0 APTT 27.9 D-Dimer 1759 H VBG Lactate Sodium Potassium Chloride Carbon Dioxide Anion Gap BUN Creatinine Est GFR (CKD-EPI 2020) Glucose Calcium Magnesium Ferritin Total Bilirubin AST ALT Alkaline Phosphatase Troponin I C-Reactive Protein Total Protein Albumin Procalcitonin Urine Color Urine Clarity Urine pH Ur Specific [place] Urine Protein Urine Ketones Urine Blood Urine Nitrite Urine Bilirubin Urine Urobilinogen Ur Leukocyte Esterase Urine Glucose COVID-19 Source SARS-CoV-2 (PCR) Influenza Type A (PCR) Influenza Type B (PCR) RSV (PCR) Patient ABO/Rh O Positive Antibody Screen NEGATIVE Crossmatch See Detail 02/01/23 02/01/23 02/01/23 05:35 09:40 09:40 WBC RBC Hgb Hct MCV MCH MCHC RDW Plt Count MPV Immature Gran % Neutrophils % Lymphocytes % Monocytes % Eosinophils % Basophils % Nucleated RBC % Absolute Neutrophils Absolute Lymphocytes Absolute Monocytes Absolute Eosinophils Absolute Basophils RBC Morphology Polychromasia Poikilocytosis Anisocytosis PT INR APTT D-Dimer 2422 H VBG Lactate 0.8 Sodium 142 Potassium 4.7 Chloride 108 H Carbon Dioxide 26.1 Anion Gap 7.9 BUN 31 H Creatinine 1.0 Est GFR (CKD-EPI 2020) 63.70 Glucose 185 H Calcium 8.8 Magnesium Ferritin 220 Total Bilirubin 0.3 AST 21 ALT 14 Alkaline Phosphatase 142 H Troponin I C-Reactive Protein 12.92 H Total Protein 6.1 L Albumin 2.0 L Procalcitonin Urine Color Urine Clarity Urine pH Ur Specific [place] Urine Protein Urine Ketones Urine Blood Urine Nitrite Urine Bilirubin Urine Urobilinogen Ur Leukocyte Esterase Urine Glucose COVID-19 Source SARS-CoV-2 (PCR) Influenza Type A (PCR) Influenza Type B (PCR) RSV (PCR) Patient ABO/Rh Antibody Screen Crossmatch Time Spent with Patient Time Spent with Patient: 35-49 minutes Time was spent: preparing to see the patient(eg.review tests), obtaining and/or reviewing separately otained hiistory, ordering medications,tests, procedures, referring, communicating with other health urgent care physician assistant, indepentently interpreting results, counseling the patient and care coordination
[2023-02-01 11:35] LABS: Vitamin D 25 Total 28.8 ng/mL (30-100)
[2023-02-01] MEDS: Albuterol HFA 8 GM 60 PUFF INH IH ×3 (11:47→20:56)
[2023-02-01] MEDS: Cholecalciferol (Vitamin D3) 1,000 UNIT TAB 1000 UNITS PO (14:07)
[2023-02-01] MEDS: guaiFENesin 600 MG TABCR PO ×2 (14:07→20:33)
--- NOTE | 2023-02-01 14:46 | PHA.REVIEW2 ---
Pharmacy Admission Review Admission Clinical Review Admission Pharmacy Review: (Updated 02/01/23 @ 08:45 by Veena Smalls MD) Respiratory failure with hypoxia (Acute) Hypovolemic shock (Acute) MARILIN (acute kidney injury) (Acute) Lactic acidosis (Acute) COVID (Acute) History of total left hip arthroplasty (Acute 01/19/23) Bipolar 1 disorder (Acute) metformin Allergy (Unknown, Verified 01/31/23 21:16) meperidine Adverse Reaction (Verified 01/31/23 21:16) gi upset Resuscitation Status Full Code Height 5 ft 4 in Weight 71.6 kg Pharmacy Admission Review Renal Dosing Renal Dosing: BUN 31 mg/dL (7-18) H 02/01/23 09:40 Creatinine 1.0 mg/dL (0.55-1.02) 02/01/23 09:40 Medications needing adjustments: Reviewed (eCrCl 56 ml/min, eGFR >60 ml/min) List of meds needing interventions: all dosed appropriately; if eGFR drops below 60 baricitinib will need to be adjusted to 2 mg daily Anticoagulation Anticoagulation: Hgb 11.0 g/dL (11.2-15.7) L D 02/01/23 05:35 Hct 34.6 % (36.0-46.0) L 02/01/23 05:35 Plt Count 265 10^3/uL (130-400) 02/01/23 05:35 INR 1.0 (0.9-1.1) 01/31/23 22:40 Creatinine 1.0 mg/dL (0.55-1.02) 02/01/23 09:40 DVT Prophylaxis: Reviewed Medications: Enoxaparin Opiate Usage Evaluate Pain Scale/Pains Meds: N/A Relevant Labs Relevant Labs: Sodium 142 mmol/L (136-145) 02/01/23 09:40 Potassium 4.7 mmol/L (3.5-5.1) 02/01/23 09:40 Chloride 108 mmol/L (98-107) H 02/01/23 09:40 Magnesium 2.3 mg/dL (1.8-2.4) 01/31/23 21:00 C-Reactive Protein 12.92 mg/dL (0.0-0.3) H 02/01/23 09:40 Electrolytes, C-Reactive P, ESR: Reviewed DM Control DM Control: Reviewed Insulin Dosing, Diabetic Medication: covered with aspart per SS Cardiac Review Cardiac Review: Troponin I < 50 ng/L (<or=60) 01/31/23 22:40 BP, HR, EF%: Reviewed List meds needing interventions: hypotension, BB and entresto are on hold, will be weaned off norepi today QTc Review List meds needing interventions: QTc 417 on admission IV to PO Switch IV Medications: Reviewed Home Meds Home Med List reviewed: Reviewed Relevent Home Meds Not ordered & why?: BP meds (metoprolol and entresto are on hold due to hypotension) Current Meds Current Medication Order Review: Reviewed (Remdesivir + baricitinib initiated on 02/01) Pharmacy Antibiotic Review Relevant Labs: Relevant Labs 02/01/23 01/31/23 01/31/23 09:40 22:40 21:00 C-Reactive Protein 12.92 H 8.96 H Procalcitonin 0.5 Pharmacy Antibiotic Activity: Reviewed, no change Comments: cefepime + azithromycin day 2 (vancomycin was initiated empirically but DC'd this am)
[2023-02-01 17:45] LABS: Vancomycin (Random) 11.7 ug/mL (See Note)
[2023-02-01] MEDS: Normal Saline Flush 10 ML SYR IVP (17:57)
[2023-02-01] MEDS: Atorvastatin 40 MG TAB 80 MG PO (20:34)
[2023-02-01] MEDS: AZITHROMYCIN 250 MG in Normal Saline 250 ML IVPB (20:35)
[2023-02-01] MEDS: QUEtiapine 100 MG TAB PO (22:20)
[2023-02-02] VITALS (26 sets, daily range): BP systolic 93–127; BP diastolic 48–58; PULSE 50–74; RESP 13–22; TEMP 36.7–36.8; O2SAT 88–97
[2023-02-02] MEDS: CEFEPIME 1 GM in Normal Saline 50 ML IVPB ×2 (00:05→08:39)
[2023-02-02] MEDS: Normal Saline Flush 10 ML SYR IVP (00:56)
[2023-02-02] MEDS: Normal Saline 500 ML 20 ML IV (00:58)
[2023-02-02] MEDS: REMDESIVIR 100 MG in Normal Saline 250 ML 250 MG IVPB (01:06)
[2023-02-02 07:44] LABS: Abs Immature Grans 0.02 10^3/uL (0.0-0.06); Absolute Basophil Count 0.01 10^3/uL (0.0-0.2); Absolute Eosinophil Count 0.01 10^3/uL (0.0-0.7); Absolute Monocyte Count 0.48 10^3/uL (0.1-0.8); Absolute Neutrophil Count 2.97 10^3/uL (1.2-6.7); Basophils % 0.2; Eosinophils % 0.2; HCT 29.6 % (36.0-46.0); HGB 9.7 g/dL (11.2-15.7); Immature Grans % 0.4; Lymphocytes % 27.1; MCH 27.5 pg (27.0-33.0); MCHC 32.8 % (32.0-36.0); MCV 84 fL (80-95); MPV 10.7 fL (8.0-11.0); Neutrophils % 62.1; Platelet Count 222 10^3/uL (130-400); RBC 3.53 10^6/uL (3.93-5.22); RDW 19.1 % (11.7-14.6); RDW-SD 57.8 fL; WBC 4.79 10^3/uL (4.4-10.8)
[2023-02-02 07:58] LABS: INR 0.9 (0.9-1.1); Prothrombin Time 9.3 sec (9.3-11.0)
[2023-02-02] MEDS: Albuterol HFA 8 GM 60 PUFF INH IH (08:03)
[2023-02-02 08:16] LABS: ALT 13 U/L (14-59); AST 19 U/L (15-37); Albumin 1.8 g/dL (3.4-5.0); Alkaline Phosphatase 114 U/L (46-116); Anion Gap 5.9 mmol/L (3-11); BUN 26 mg/dL (7-18); Bilirubin, Direct 0.1 mg/dL (0.0-0.2); Bilirubin, Total 0.2 mg/dL (0.2-1.0); C-Reactive Protein 6.72 mg/dL (0.0-0.3); CO2 28.1 mmol/L (21.0-32.0); CREATININE 0.7 mg/dL (0.55-1.02); Calcium 8.8 mg/dL (8.5-10.1); Chloride 106 mmol/L (98-107); Estimated GFR 97.72 (mL/min/1.73m2); Ferritin 338 ng/mL (8-252); Glucose 80 mg/dL (74-106); Potassium 3.9 mmol/L (3.5-5.1); Sodium 140 mmol/L (136-145); Total Protein 5.4 g/dL (6.4-8.2)
[2023-02-02 08:27] LABS: Vitamin D 25 Total 27.3 ng/mL (30-100)
[2023-02-02] MEDS: Gabapentin 300 MG CAP 900 MG NG (08:37)
[2023-02-02] MEDS: Enoxaparin 40 MG/0.4 ML SYR SC (08:37)
[2023-02-02] MEDS: buPROPion 100 MG TAB 300 MG UD (08:37)
[2023-02-02] MEDS: Folic Acid 1 MG TAB PO (08:38)
[2023-02-02] MEDS: guaiFENesin 600 MG TABCR PO (08:38)
[2023-02-02] MEDS: Dexamethasone 4 MG TAB PO (08:38)
[2023-02-02] MEDS: Multivitamin TAB 1 TAB PO (08:38)
[2023-02-02] MEDS: Cholecalciferol (Vitamin D3) 1,000 UNIT TAB 1000 UNITS PO (08:38)
[2023-02-02] MEDS: Aspirin 81 MG CHEW PO (08:38)
[2023-02-02] MEDS: Sucralfate 1 GM TAB PO (08:38)
[2023-02-02 08:43] LABS: D-Dimer 1991 ng/mlFEU (<500)
--- NOTE | 2023-02-02 10:00 | W.PM.DS.N ---
Date of service: 02/02/23 Time of Service: 10:01 DS: Diagnosis Discharge Diagnosis (1) COVID: Status: Acute Asessment and Plan: Remdesivir, dexamethasone and barcitinib initiated. D-dimer and CRP trended downward. She weaned to RA. Initially required vasopressor for BP support but this was discontinued. Home with 3 days of prednisone 20mg daily. Given a procalcitonin of 0.5 (with a normal WBC count) she was initially started on Cefepime, azithromycin and vancomycin. She will d/c on cefpodoxime for 5 days for questionable bacterial infection superimposed on COVID pneumonia. (2) History of total left hip arthroplasty: Status: Acute Asessment and Plan: Continue rehab efforts. (3) Bipolar 1 disorder: Status: Acute Asessment and Plan: Cont buproprion and quetiapine. Stable mood/affect during hospitalization. (4) Stress-induced cardiomyopathy: Asessment and Plan: Continue Entresto and Spironolactone. Monitor BP at home and if has symptoms of low BP or documents low BP that is concerning, call PCP. (5) Atrial flutter: Status: Resolved Asessment and Plan: Cont metoprolol and aspirin. (6) Diabetes: Status: Chronic Asessment and Plan: Continue home insulin and Jardiance. (7) Anemia: Status: Chronic Asessment and Plan: Stable. Discharge Plan Disposition Patient Disposition: Home Condition: Improving Discharge Details Reason For Visit: COVID, hypotension Admit Date/Time: 01/31/23 23:34 Admit Provider: Geronimo Ortiz Attending Provider: Geronimo Ortiz Primary Care Provider: Ana Gillespie Hospital Course Hospital Course: This is a 62 female with h/o CAD, CHF, DM -- discharged 01/20 following repair left hip fracture. Pre-op Hct 41, psot op 30; and last recorded BP on discharge was 70/sys. Has been continuing usual meds, including Metoprolol and Entresto. Here now with one day of weakness. EMS report fever but not recorded here. On arrival BP 74/29, temp 37.3, O2 sat 90% RA. Patient given 1 L NS and started on Levophed. Patient has been cultured, and given doses of Vanco, Zosyn and Zithro. COVID positive and given dose Dexa. CT chest of note for ground glass opacities left>right. White count 6.3, with shift but no bands, and lymphopenia. Procal 0.5, lactate 2.3. EKG without ischemic changes, no acute changes. Trop pending. Patient states she has had a slight cough. Denies SOB or CP. Says she is fully vaccinated. See Diagnosis F/U with PCP in 1-2 weeks ? Home Meds and New Rx's Prescriptions: New esomeprazole magnesium [address] For Susp In Packet 40 mg NG BID@ Qty: 0 0RF prednisone 20 mg tablet 20 mg PO DAILY Qty: 3 0RF Rx Instructions: First dose on 02/03/23 cefpodoxime 200 mg tablet 200 mg PO BID Qty: 10 0RF Rx Instructions: must administer with a meal/food First dose tonight; 02/02/23 Continued bupropion HCl 100 mg tablet 300 mg PO DAILY Patient Comments: via g-tube, per pcp ov notes 12/09/22 RH Humulin N NPH Insulin KwikPen 100 unit/mL (3 mL) insulin pen See Rx Instructions SUBCUT DAILY Rx Instructions: 17 units subcutaneously at start of tube feet and again 6 hrs later 12/16/22 per PCP notes RH protein Powder PO insulin aspart U-100 [Novolog FlexPen U-100 Insulin] 100 unit/mL (3 mL) insulin pen 5 unit subcut TID Rx Instructions: Inject 1 unit subcutaneously twice a day as directed, inject 2 units for BG 151-250, 3 units for BG 251-300, 4 units for BG 301-350 gabapentin 300 mg capsule 900 mg feeding tube TID Patient Comments: via g-tube Entresto 24-26 mg tablet 1 tab feeding tube DAILY Patient Comments: via g-tube Jardiance 10 mg tablet 10 mg PO DAILY insulin glargine [Lantus U-100 Insulin] 100 unit/mL solution 10 unit subcut QPM quetiapine 100 mg tablet 100 mg PO QHS atorvastatin 80 mg tablet 80 mg PO DAILY valproic acid (as sodium salt) 250 mg/5 mL solution 300 mg PO TID Rx Instructions: 6mls TID metoprolol succinate 50 mg tablet extended release 24 hr 50 mg PO DAILY spironolactone 25 mg tablet 12.5 mg PO DAILY melatonin 3 mg capsule 9 mg PO HS PRN Patient Comments: via g-tube ibuprofen 100 mg/5 mL suspension 600 mg PO Q8H Qty: 473 0RF sucralfate 1 gram tablet 1 g PO QID Patient Comments: TAKE ONE TABLET BY MOUTH FOUR TIMES A DAY folic acid 1 mg Tablet 1 mg PO DAILY Qty: 0 0RF multivitamin [Multiple Vitamins] Tablet 1 tab PO DAILY Qty: 30 0RF ferrous sulfate 300 mg (60 mg iron)/5 mL liquid .QOD Patient Comments: TAKE 5ML VIA G-TUBE EVERY OTHER DAY pantoprazole [Protonix] [address] for susp in packet 40 mg feeding tube BID Patient Comments: DISSOLVE ONE PACKET IN 10ML OF APPLE JUICE THEN FOLLOW WITH ANOTHER 10ML AND TAKE VIA G-TUBE TWO TIMES A DAY acetaminophen 500 mg/15 mL liquid 1,000 mg PO Q8H PRNQty: 237 2RF aspirin [Aspirin Childrens] 81 mg tablet,chewable 81 mg PO BID Qty: 60 0RF Rx Instructions: via g-tube oxycodone 5 mg/5 mL solution 5 mg PO Q6H PRN (Reason: pain) Qty: 90 0RF Rx Instructions: 2.5-5mL per G-tube for pain Discharge Instructions Additional Instructions: Continue to isolate at home for 2 more days, then wear a mask in public for 5 days after isolation period. Activity:: Activity as Tolerated Equipment/Supplies:: No Equipment Needed Diet:: As Tolerated Discharge Orders Discharge Orders: Discharge Order (Routine); Ordered 02/02/23 Ordered By: Alfonso Barber DS: Summary Time Spent with Patient providing and/or coordinating discharge services: Greater than 30 minutes Status at Discharge Functional status at discharge: uses cane/walker Overall status at discharge: patient is progressing back to baseline Mental Status: mental status grossly normal Speech and Movement: speech clear Mood: congruent mood Affect: normal affect Exam Narrative Exam Narrative: Gen: Lying supine. NAD. Interactive. HEENT: sclera clear. MMM Lungs: Clear in anterior lung howard. Nonlabored breathing. On RA. CV: RRR. Abdomen: soft, NT. Exts: w/o edema, No calf tenderness. Neuro: A&Ox3, appears fatigued but is lucid Psych Mental Status: mental status grossly normal Speech and Movement: speech clear Mood: congruent mood Affect: normal affect DS: Data Vitals/I&O Vitals and I&O: Vital Signs Temperature 36.7 C 02/02/23 02:01 Temperature Source Temporal Artery Scan 02/01/23 20:11 Pulse 61 02/02/23 06:01 Pulse Rhythm Regular 02/01/23 15:21 Pulse 62 02/02/23 06:01 Respiratory Rate 15 02/02/23 06:01 Respiratory Effort Normal, Non-Labored 02/02/23 08:00 Respiratory Depth Normal 02/02/23 08:00 Respiratory Pattern Normal 02/02/23 08:00 Blood Pressure 127/58 L 02/02/23 06:01 Blood Pressure Mean 80 02/02/23 06:01 Blood Pressure Position Supine 02/01/23 12:30 Pulse Oximetry 96 02/02/23 08:04 Oxygen Delivery Method Room Air 02/02/23 08:04 Oxygen Flow Rate 0 02/02/23 08:04 Pain Level 0 02/01/23 15:16 Intake & Output 02/01/23 02/01/23 02/02/23 11:59 23:59 11:59 Intake Total 6742.009 / 7296.884 544.875 / 7296.884 420.667 / 420.667 Output Total 3300 / 4875 1450 / 4875 775 / 775 Balance 3442.009 / 2421.884 -905.125 / 2421.884 -354.333 / -354.333 Weight 71.6 kg 69 kg Intake: IV 6392.009 / 6709.884 307.875 / 6709.884 420.667 / 420.667 Blood Product 350 / 350 Rbc Leuko Reduced Unit 350 / 350 [id number] Intake, Tube Feeding Amount 237 / 237 Output: Urine 3300 / 4875 1450 / 4875 775 / 775 Other: Urine Color Pale Yellow Yellow Urine Appearance Clear Clear Clear Comment pateint has a barba, intact and patent pateint has a barba, intact and patent Stool Occult Blood Negative Stool Size Large Moderate Stool Characteristics Soft Soft Formed Brown Brown Green Data Completed and Pending Labs on day of discharge: Labs from last 24 hours 02/02/23 02/02/23 02/02/23 07:15 07:15 07:15 WBC 4.79 RBC 3.53 L Hgb 9.7 L Hct 29.6 L MCV 84 MCH 27.5 MCHC 32.8 RDW 19.1 H Plt Count 222 MPV 10.7 Immature Gran % 0.4 Neutrophils % 62.1 Lymphocytes % 27.1 Monocytes % 10.0 Eosinophils % 0.2 Basophils % 0.2 Nucleated RBC % 0.0 Absolute Neutrophils 2.97 Absolute Lymphocytes 1.30 Absolute Monocytes 0.48 Absolute Eosinophils 0.01 Absolute Basophils 0.01 PT 9.3 INR 0.9 D-Dimer 1991 H Sodium Potassium Chloride Carbon Dioxide Anion Gap BUN Creatinine Est GFR (CKD-EPI 2020) Glucose Calcium Magnesium Ferritin Total Bilirubin Conjugated Bilirubin AST ALT Alkaline Phosphatase C-Reactive Protein Total Protein Albumin 25-OH Vitamin D Total 27.3 L Add-On Test Request 02/02/23 02/01/23 02/01/23 07:15 09:40 09:40 WBC RBC Hgb Hct MCV MCH MCHC RDW Plt Count MPV Immature Gran % Neutrophils % Lymphocytes % Monocytes % Eosinophils % Basophils % Nucleated RBC % Absolute Neutrophils Absolute Lymphocytes Absolute Monocytes Absolute Eosinophils Absolute Basophils PT INR D-Dimer Sodium 140 Potassium 3.9 Chloride 106 Carbon Dioxide 28.1 Anion Gap 5.9 BUN 26 H Creatinine 0.7 Est GFR (CKD-EPI 2020) 97.72 Glucose 80 Calcium 8.8 Magnesium 2.0 Ferritin 338 H Total Bilirubin 0.2 Conjugated Bilirubin 0.1 AST 19 ALT 13 L Alkaline Phosphatase 114 C-Reactive Protein 6.72 H Total Protein 5.4 L Albumin 1.8 L 25-OH Vitamin D Total 28.8 L Add-On Test Request Pending 02/01/23 02/01/23 09:40 09:40 WBC RBC Hgb Hct MCV MCH MCHC RDW Plt Count MPV Immature Gran % Neutrophils % Lymphocytes % Monocytes % Eosinophils % Basophils % Nucleated RBC % Absolute Neutrophils Absolute Lymphocytes Absolute Monocytes Absolute Eosinophils Absolute Basophils PT INR D-Dimer 2422 H Sodium 142 Potassium 4.7 Chloride 108 H Carbon Dioxide 26.1 Anion Gap 7.9 BUN 31 H Creatinine 1.0 Est GFR (CKD-EPI 2020) 63.70 Glucose 185 H Calcium 8.8 Magnesium Ferritin 220 Total Bilirubin 0.3 Conjugated Bilirubin AST 21 ALT 14 Alkaline Phosphatase 142 H C-Reactive Protein 12.92 H Total Protein 6.1 L Albumin 2.0 L 25-OH Vitamin D Total Add-On Test Request Preliminary micro results at discharge 01/31/23 21:00 Urine Culture - Preliminary Urine - Cath Barba Indwelling 01/31/23 21:00 Blood Culture - Preliminary Blood NO GROWTH 24 HOURS 01/31/23 21:00 Blood Culture - Preliminary Blood NO GROWTH 24 HOURS PFSH All Active Problems Respiratory failure with hypoxia (Acute) Hypovolemic shock (Acute) MARILIN (acute kidney injury) (Acute) Lactic acidosis (Acute) COVID (Acute) History of total left hip arthroplasty (Acute 01/19/23) 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 (Acute) s/p Hardware Removal and KYUNG (01-19-23) Depression (Chronic) Bipolar 1 disorder (Acute) Diabetes (Chronic) Cholelithiasis (Chronic) Ventral hernia (Acute) Leukocytosis (Acute) Pleural effusion (Acute) Black tarry stools (Acute) Chronic diarrhea (Acute) Farrell's esophagus (Chronic) Esophageal ulcer with bleeding (Acute) Erosive esophagitis (Acute) Farrell's 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 (Acute) Hyperplastic colon polyp (Acute ~06/10/21) Tubular adenoma (Acute ~06/10/21) Neuroleptic induced parkinsonism (Acute) Drug-induced parkinsonism (Acute) Anemia (Chronic) Status post hip surgery (Acute) H/O: pneumonia (Acute) Abnormal chest xray (Acute) Pre-op evaluation (Acute) Medical History Acute cardiogenic pulmonary edema Acute metabolic encephalopathy Acute respiratory failure with hypoxia Alcohol abuse Per pt. states she has never had an issues with any subtances Anxiety Bilateral pneumonia Chronic iron deficiency anemia Chronic pancreatitis due to acute alcohol intoxication Closed fracture of neck of left femur s/p Percutaneous Screw Fixation 08/09/22 Constipation Diabetes mellitus type 2 in obese ETOH abuse History of pilonidal cyst Hypokalemia NSTEMI (non-ST elevated myocardial infarction) Per pt. states she did not have a heart attack Poorly controlled diabetes mellitus Stress-induced cardiomyopathy acute onset managed at [facility] [place] 08/30 pressors, EF 25%, has since recovered RH Surgical History History of section History of colonoscopy with polypectomy (~06/10/21) History of esophagogastroduodenoscopy (EGD) (~06/10/21) History of hysterectomy History of tonsillectomy S/P laparoscopic procedure cyst removed from stomach per patient S/P surgical removal of pilonidal cyst Family History Father Hypertension Diabetes Heart disease Social History Smoking/Tobacco Use Status: Former Tobacco Use Quit Date: 02/07/21 Smoking risk assessment performed?: Yes Alcohol Intake: never Drug use: Never Substance use type: does not use Details: pt. 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 Time Spent with Patient Time Spent with Patient: 45-69 minutes Time was spent: preparing to see the patient(eg.review tests), obtaining and/or reviewing separately otained hiistory, ordering medications,tests, procedures, referring, communicating with other health critical care unit manager, indepentently interpreting results, counseling the patient and care coordination
--- NOTE | 2023-02-02 13:04 | PDOC.CMDIS ---
Date of service: 02/02/23 Time of Service: 13:04 LACE Index Scoring Tool Questions: Length of Stay (in days): 2 Was the patient admitted via the E.D.?: Yes Care Management Discharge Plan Reason for Hospitalization: COVID, hypotension Discharge Plan: Jennifer will return home when ready per MD, follow up with community providers and transport via private vehicle with her . Patient/Family Education Needs: Review discharge instructions, discuss Ask Me Three.
[2023-02-05 11:59] LABS: Lab Add On Test DONE
== END 2023-02-02 11:20 | disposition home or self-care (01) | DRG 177 ==
LOC: ER 23:58 → ICU 02-01 00:19
PROVIDERS: Family Medicine; Internal Medicine; Student in an Organized Health Care Education/Training Program; Admitting Provider General Practice; Emergency Provider Nurse Practitioner Family; PCP Nurse Practitioner Family; Visit Provider General Practice
DX: U07.1 COVID-19 (principal); J12.82 Pneumonia due to coronavirus disease 2019; J96.01 Acute respiratory failure with hypoxia; R57.1 Hypovolemic shock; K22.11 Ulcer of esophagus with bleeding; J15.9 Unspecified bacterial pneumonia; I48.92 Unspecified atrial flutter; E87.20 Acidosis, unspecified; N17.9 Acute kidney failure, unspecified; K86.0 Alcohol-induced chronic pancreatitis; G21.11 Neuroleptic induced parkinsonism; Z96.642 Presence of left artificial hip joint; Z79.4 Long term (current) use of insulin; F31.9 Bipolar disorder, unspecified; I25.10 Atherosclerotic heart disease of native coronary artery without angina pectoris; I50.9 Heart failure, unspecified; R53.1 Weakness; D72.810 Lymphocytopenia; K80.20 Calculus of gallbladder without cholecystitis without obstruction; K52.9 Noninfective gastroenteritis and colitis, unspecified; D50.9 Iron deficiency anemia, unspecified; F41.9 Anxiety disorder, unspecified; I25.2 Old myocardial infarction; E11.65 Type 2 diabetes mellitus with hyperglycemia; Z87.891 Personal history of nicotine dependence; Z93.1 Gastrostomy status
CPT/HCPCS: 36415; 36430; 71275; 74177; 80048; 80053; 80076; 82306; 84145; 85027; 86850; 86900; 86901; 86920; 87040; 87637; 93005; 93308; 94640; 96365; 96375; 96376; 99285; J1650; 80202; 81003; 82728; 83605; 83735; 84484; 85025; 85379; 85610; 85730; 86140; 87086; 93010; 93970; 94664; 94667; 94668; 94760; 99223; 99233; 99239; J0248; J0456; J1100; J2543; J3490; J8540; P9016

== ENCOUNTER 2023-02-15 10:15 | Outpatient (CLI) | payer MEDICAID, SELFPAY ==
--- NOTE | 2023-02-15 09:45 | DI.RAD_ITS ---
Exam(s) XR HIP LT COMPLETE AP PELVIS EXAM: XR HIP LT COMPLETE AP PELVIS INDICATION: 1ST POST OP S/P L KYUNG. COMPARISON: XA XR HIP LT IN OR from 01/19/[address] CHEST PE ABD PELVIS W from 01/31/2023 TECHNIQUE: 2D digital imaging was performed. Two views. FINDINGS: There has been no change in the alignment of the left hip prosthesis. Are no abnormal surrounding frannie cencies. Right hip shows minimal degenerative changes. IMPRESSION: Stable appearance of left hip prosthesis. DATA REPOSITORY: RADIATION DOSE DELIVERED:
== END 2023-02-15 10:16 | disposition home or self-care (01) ==
LOC: DIORS 10:15
PROVIDERS: PCP Nurse Practitioner Family; Visit Provider Student in an Organized Health Care Education/Training Program
DX: Z47.1 Aftercare following joint replacement surgery (principal); Z96.642 Presence of left artificial hip joint
CPT/HCPCS: 73502

== ENCOUNTER 2023-02-26 22:30 | Inpatient (IN) | payer MEDICAID, SELFPAY ==
[2023-02-26] VITALS (18 sets, daily range): BP systolic 77–104; BP diastolic 38–49; PULSE 50–56; RESP 10–22; TEMP 36.3; O2SAT 84–100
--- NOTE | 2023-02-26 22:30 | RT.EKG_ITS ---
APPROVED REPORT Exam: Resting ECG Reason for Exam: short of breath Patient Location: E HR:54 bpm ECG Measurements Heart Rate 54 AXIS SD 168 P 62 QRSd 80 QRS 79 QT 431 T 8 QTc 409 Conclusion Sinus bradycardia...rate< 60 Low voltage, extremity and precordial leads...extremity<0.5mV, precordial<1.0mV Physician: atypical t wave morphology in V1 and 2, suspect u wave
--- NOTE | 2023-02-26 22:30 | DI.RAD_ITS ---
Exam(s) XR PORTABLE CHEST AP EXAM: XR PORTABLE CHEST AP CLINICAL HISTORY: sob post endoscopy. TECHNIQUE: 2D digital imaging was performed. COMPARISON: CR XR CHEST 2V PA LATERAL from 12/17/2022 FINDINGS: Single AP portable view. Heart size is upper normal. The mediastinum is not widened. There is prominent area of patchy infiltrate in the left lower lobe. No obvious pleural effusion. T he right lung is clear. No pleural effusions. IMPRESSION: Significant infiltrate in the left lower lobe. No obvious pleural effusions. DATA REPOSITORY: RADIATION DOSE DELIVERED:
--- NOTE | 2023-02-26 22:56 | W.ED.GENAD ---
Discharge Plan Discharge Details Chief Complaint: SOB/SuddenOnset Clinical Impression: Hypoxemia, Aspiration pneumonia, Acute respiratory distress Primary Care Provider: Ana Gillespie ED Provider: Ismael Eason Home Meds and New Rx's Prescriptions: No Action bupropion HCl 100 mg tablet 300 mg PO DAILY Patient Comments: via g-tube, per pcp ov notes 12/09/22 RH Humulin N NPH Insulin KwikPen 100 unit/mL (3 mL) insulin pen See Rx Instructions SUBCUT DAILY Rx Instructions: 17 units subcutaneously at start of tube feet and again 6 hrs later 12/16/22 per PCP notes RH protein Powder PO ibuprofen 100 mg/5 mL suspension 600 mg PO Q8H Qty: 473 1RF insulin aspart U-100 [Novolog FlexPen U-100 Insulin] 100 unit/mL (3 mL) insulin pen 5 unit subcut TID Rx Instructions: Inject 1 unit subcutaneously twice a day as directed, inject 2 units for BG 151-250, 3 units for BG 251-300, 4 units for BG 301-350 gabapentin 300 mg capsule 900 mg feeding tube TID Patient Comments: via g-tube Entresto 24-26 mg tablet 1 tab feeding tube DAILY Patient Comments: via g-tube Jardiance 10 mg tablet 10 mg PO DAILY insulin glargine [Lantus U-100 Insulin] 100 unit/mL solution 10 unit subcut QPM quetiapine 100 mg tablet 100 mg PO QHS atorvastatin 80 mg tablet 80 mg PO DAILY valproic acid (as sodium salt) 250 mg/5 mL solution 300 mg PO TID Rx Instructions: 6mls TID metoprolol succinate 50 mg tablet extended release 24 hr 50 mg PO DAILY spironolactone 25 mg tablet 12.5 mg PO DAILY melatonin 3 mg capsule 9 mg PO HS PRN Patient Comments: via g-tube sucralfate 1 gram tablet 1 g PO QID Patient Comments: TAKE ONE TABLET BY MOUTH FOUR TIMES A DAY folic acid 1 mg Tablet 1 mg PO DAILY Qty: 0 0RF multivitamin [Multiple Vitamins] Tablet 1 tab PO DAILY Qty: 30 0RF ferrous sulfate 300 mg (60 mg iron)/5 mL liquid .QOD Patient Comments: TAKE 5ML VIA G-TUBE EVERY OTHER DAY pantoprazole [Protonix] [address] for susp in packet 40 mg feeding tube BID Patient Comments: DISSOLVE ONE PACKET IN 10ML OF APPLE JUICE THEN FOLLOW WITH ANOTHER 10ML AND TAKE VIA G-TUBE TWO TIMES A DAY esomeprazole magnesium [address] For Susp In Packet 40 mg NG BID@ Qty: 0 0RF cefpodoxime 200 mg tablet 200 mg PO BID Qty: 10 0RF Rx Instructions: must administer with a meal/food First dose tonight; 02/02/23 acetaminophen 500 mg/15 mL liquid 1,000 mg PO Q8H PRNQty: 237 2RF aspirin [Aspirin Childrens] 81 mg tablet,chewable 81 mg PO BID Qty: 60 0RF Rx Instructions: via g-tube Medical Decision Making This is a 62-year-old female with a past medical history of an esophageal stricture severe enough that she has a PEG tube for eating, type 2 diabetes, GERD, Farrell's esophagus, bipolar disorder, stress-induced cardiomyopathy, previous NSTEMI, hysterectomy, tonsillectomy, who presents today for evaluation of shortness of breath. Earlier today patient was at [facility] where she had EGD and procedure ligation for peptic stricture dilatation. Per [facility] notes and family it appears that the procedure was without any complication. Patient did well and was discharged. She went home, and had a normal day, however this evening at around 9:45 PM she suddenly stated that she felt very short of breath and could not breathe. Pulse oximetry at that time demonstrated a number in the low 70s. She is normally on 2 L of baseline oxygen. EMS was called, upon their arrival she was also in the 70s for her O2 saturation. She was placed on 6 L and brought to the ER for further assessment. She does have hypotension that was also noted on EMS review, however she has had notably low blood pressures in the past and at baseline. Patient denies any chest pain or neck pain. She denies any vomiting or diarrhea. No fever or chills. Symptoms seem to be made worse when lying down. Of note she did not take her spironolactone today. No other complaints at this time. No other modifying factors. Exam demonstrates a well-appearing but hypoxic female. O2 saturations in the 70s to 80s on 2 L, on 6 L she only came up to the high 80s low 90s. We placed her on 8 L and she saturated well. We will transition to BiPAP. Bedside ultrasound demonstrates B-lines only on the left, but auscultated crackles bilaterally. Ejection fraction appears to be around 15 to 20% at best. No pericardial effusion or evidence of tamponade. Blood pressure is slightly low but well within her baseline. Current blood pressure is 104/49. Differential includes aspiration, CHF component, or pneumonitis. We will get a chest x-ray, start the patient on BiPAP, monitor closely and reassess. I am hesitant to start diuretics right away secondary to the unilateral findings on my bedside echo/pulmonary ultrasound, and her slightly labile blood pressure. 11:30 PM Chest x-ray confirms evidence of what appears to be infiltrate in the left lung. Right lung otherwise looks relatively clear. Still pending formal read, however we will start Unasyn for suspected aspiration pneumonia. Oxygenation is improved with BiPAP. Patient's blood pressure remained stable. Patient doing well. Will recommend admission for continued BiPAP and antibiotics. Remainder of the patient's laboratory work-up is otherwise relatively stable/benign. VBG shows no acidosis. Electrolytes stable, troponin normal. EKG shows no evidence of STEMI or other significant abnormality. We will reach out to the hospitalist for admission 11:51 PM Discussed the case with hospitalist Dr. Giron, he agrees with the assessment and plan. I have extensively reviewed the treatment plan with the patient. I have addressed all patient concerns at this time. I have also discussed the plan with the admitting physician and they agree with the current assessment and plan and have agreed to assume responsibility for the patient. All parties demonstrate verbal understanding and agreement with our assessment and plan at this time. The documentation in this chart was dictated using [employer] dictation software. Please excuse any dictation errors. FINDINGS: Tubes, catheters and devices: Cardiac leads superimposed over the chest. Lungs: Patchy infiltrate within the inferior left lung. Portion of external radiopaque tubing superimposed over the lateral right upper lobe. Pleural spaces: No pneumothorax or pleural fluid collection. Heart/Mediastinum: Normal heart size. Bones/joints: Spinal degenerative changes. IMPRESSION: 1. No pneumothorax or pleural fluid collection. 2. Patchy infiltrate within the inferior left lung. Thank you for allowing us to participate in the care of your patient. Dictated and Authenticated by: Patric Meyer MD 02/26/2023 11:40 PM Eastern Time ([place] & [place]) HPI General Date/Time Provider Initiated Documentation: 02/26/23 22:33. HPI Narrative: This is a 62-year-old female with a past medical history of an esophageal stricture severe enough that she has a PEG tube for eating, type 2 diabetes, GERD, Farrell's esophagus, bipolar disorder, stress-induced cardiomyopathy, previous NSTEMI, hysterectomy, tonsillectomy, who presents today for evaluation of shortness of breath. Earlier today patient was at [facility] where she had EGD and procedure ligation for peptic stricture dilatation. Per [facility] notes and family it appears that the procedure was without any complication. Patient did well and was discharged. She went home, and had a normal day, however this evening at around 9:45 PM she suddenly stated that she felt very short of breath and could not breathe. Pulse oximetry at that time demonstrated a number in the low 70s. She is normally on 2 L of baseline oxygen. EMS was called, upon their arrival she was also in the 70s for her O2 saturation. She was placed on 6 L and brought to the ER for further assessment. She does have hypotension that was also noted on EMS review, however she has had notably low blood pressures in the past and at baseline. Patient denies any chest pain or neck pain. She denies any vomiting or diarrhea. No fever or chills. Symptoms seem to be made worse when lying down. Of note she did not take her spironolactone today. No other complaints at this time. No other modifying factors. Related Data Home Medications Medication Instructions Recorded Confirmed insulin aspart U-100 100 unit/mL 5 unit subcut TID 07/16/21 02/15/23 (3 mL) subcutaneous pen (Novolog FlexPen U-100 Insulin aspart) sucralfate 1 gram tablet 1 g PO QID 08/08/22 02/15/23 folic acid 1 mg tablet 1 mg PO DAILY #0 tabs 08/10/22 02/15/23 multivitamin (Multiple Vitamins 1 tab PO DAILY #30 tabs 08/10/22 02/15/23 tablet) atorvastatin 80 mg tablet 80 mg PO DAILY 11/18/22 02/15/23 empagliflozin 10 mg tablet 10 mg PO DAILY 11/18/22 02/15/23 (Jardiance) gabapentin 300 mg capsule 900 mg feeding tube TID 11/18/22 02/15/23 insulin glargine 100 unit/mL 10 unit subcut QPM 11/18/22 02/15/23 subcutaneous solution (Lantus U-100 Insulin) melatonin 3 mg capsule 9 mg PO HS PRN 11/18/22 02/15/23 metoprolol succinate 50 mg 50 mg PO DAILY 11/18/22 02/15/23 tablet,extended release 24 hr quetiapine 100 mg tablet 100 mg PO QHS 11/18/22 02/15/23 sacubitril 24 mg-valsartan 26 mg 1 tab feeding tube DAILY 11/18/22 02/15/23 tablet (Entresto) spironolactone 25 mg tablet 12.5 mg PO DAILY 11/18/22 02/15/23 valproic acid (as sodium salt) 250 300 mg PO TID 11/18/22 02/15/23 mg/5 mL oral solution bupropion HCl 100 mg tablet 300 mg PO DAILY 12/16/22 02/15/23 insulin NPH isoph U-100 human 100 See Rx Instructions subcut DAILY 12/16/22 02/15/23 unit/mL (3 mL) subcutaneous pen (Humulin N NPH U-100 Insulin KwikPen) protein pwd PO 12/16/22 02/15/23 acetaminophen 500 mg/15 mL oral 1,000 mg (30 mL) PO Q8H PRN #237 mL 01/19/23 02/15/23 liquid aspirin 81 mg chewable tablet 81 mg PO BID #60 tabs 01/19/23 02/15/23 (Aspirin Childrens) ferrous sulfate 300 mg (60 mg mg .QOD 01/31/23 02/15/23 iron)/5 mL oral liquid pantoprazole 40 mg granules 40 mg feeding tube BID 02/01/23 02/15/23 delayed-release for susp in packet (Protonix) cefpodoxime 200 mg tablet 200 mg PO BID #10 tabs 02/02/23 02/15/23 esomeprazole magnesium 40 mg 40 mg NG BID@729,1999 #0 ea 02/02/23 02/15/23 granules delayed release for susp ibuprofen 100 mg/5 mL oral 600 mg (30 mL) PO Q8H #473 mL 02/15/23 02/15/23 suspension Previous Rx's Medication Instructions Recorded folic acid 1 mg tablet 1 mg PO DAILY #0 tabs 08/10/22 multivitamin (Multiple Vitamins 1 tab PO DAILY #30 tabs 08/10/22 tablet) acetaminophen 500 mg/15 mL oral 1,000 mg (30 mL) PO Q8H PRN #237 mL 01/19/23 liquid aspirin 81 mg chewable tablet 81 mg PO BID #60 tabs 01/19/23 (Aspirin Childrens) cefpodoxime 200 mg tablet 200 mg PO BID #10 tabs 02/02/23 esomeprazole magnesium 40 mg 40 mg NG BID@ #0 ea 02/02/23 granules delayed release for susp ibuprofen 100 mg/5 mL oral 600 mg (30 mL) PO Q8H #473 mL 02/15/23 suspension Allergies Allergy/AdvReac Type Severity Reaction Status Date / Time metformin Allergy Unknown Verified 02/26/23 22:35 meperidine AdvReac gi upset Verified 02/26/23 22:35 General Stated Complaint: SOB/SuddenOnset ASAHNTI: 2 Review of Systems All systems reviewed & are unremarkable except as noted in HPI and below PFSH All Active Problems (Updated 02/26/23 @ 23:43 by Ismael Eason DO) Acute respiratory distress (Acute) Aspiration pneumonia (Acute) Hypoxemia (Acute) COVID (Acute) 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 (Acute) s/p Hardware Removal and KYUNG (01-19-23) Depression (Chronic) Bipolar 1 disorder (Acute) Diabetes (Chronic) Cholelithiasis (Chronic) Ventral hernia (Acute) Leukocytosis (Acute) Pleural effusion (Acute) Black tarry stools (Acute) Chronic diarrhea (Acute) Farrell's esophagus (Chronic) Esophageal ulcer with bleeding (Acute) Erosive esophagitis (Acute) Farrell's 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 (Acute) Hyperplastic colon polyp (Acute ~06/10/21) Tubular adenoma (Acute ~06/10/21) Neuroleptic induced parkinsonism (Acute) Drug-induced parkinsonism (Acute) Anemia (Chronic) Status post hip surgery (Acute) H/O: pneumonia (Acute) Abnormal chest xray (Acute) Pre-op evaluation (Acute) Medical History Acute cardiogenic pulmonary edema Acute metabolic encephalopathy Acute respiratory failure with hypoxia Alcohol abuse Per pt. states she has never had an issues with any subtances Anxiety Bilateral pneumonia Chronic iron deficiency anemia Chronic pancreatitis due to acute alcohol intoxication Closed fracture of neck of left femur s/p Percutaneous Screw Fixation 08/09/22 Constipation Diabetes mellitus type 2 in obese ETOH abuse History of pilonidal cyst Hypokalemia NSTEMI (non-ST elevated myocardial infarction) Per pt. states she did not have a heart attack Poorly controlled diabetes mellitus Stress-induced cardiomyopathy acute onset managed at [facility] 08/30 pressors, EF 25%, has since recovered RH Surgical History History of section History of colonoscopy with polypectomy (~06/10/21) History of esophagogastroduodenoscopy (EGD) (~06/10/21) History of hysterectomy History of tonsillectomy S/P laparoscopic procedure cyst removed from stomach per patient S/P surgical removal of pilonidal cyst Family History Father Hypertension Diabetes Heart disease Social History Smoking/Tobacco Use Status: Former Tobacco Use Quit Date: 02/07/21 Smoking risk assessment performed?: Yes Alcohol Intake: never Drug use: Never Substance use type: does not use Details: pt. 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 Exam Narrative Exam Narrative: 1.Const: Well-nourished, Well-developed, appearing stated age 2.Eyes: PERRL, no conjunctival injection, and symmetrical lids. 3.ENT: Atraumatic external nose and ears. Moist MM. Neck: Symmetric, trachea midline, No thyromegaly. 4.CVS: +S1/S2, No murmurs or gallops. Peripheral pulses 2+ and equal in all extremities. Brisk capillary refill in all extremities. 5.RESP: Unlabored respiratory effort. Crackles bilaterally in the bases. No wheezes or rhonchi. 6.GI: Soft, Nontender/Nondistended, No hepatosplenomegaly. No guarding or rebound. PEG tube in place 7.MSK: Normocephalic/Atraumatic, Extremities w/o deformity or ttp No cyanosis or clubbing, Normal movement of all extremities. +1 pitting edema bilaterally 8.Skin: Warm, Dry. No rashes or lesions. 9.Neuro: immigration consultant II-XII grossly intact. Sensation grossly intact, no focal neurologic deficits. 10.Psych: (AAO) x3. Appropriate mood and affect Course Vital Signs Vital signs: Vital Signs Temperature 36.3 C L 02/26/23 22:31 Pulse 55 L 02/26/23 22:31 Respiratory Rate 13 02/26/23 22:31 Blood Pressure 104/49 L 02/26/23 22:31 Pulse Oximetry 89 L 02/26/23 22:31 Temperature 36.3 C L 02/26/23 22:31 Temperature Source Tympanic 02/26/23 22:31 Pulse 55 L 02/26/23 22:31 Respiratory Rate 13 02/26/23 22:31 Respiratory Effort Short of Breath 02/26/23 22:34 Blood Pressure 104/49 L 02/26/23 22:31 Blood Pressure Position Supine 02/26/23 22:31 Pulse Oximetry 89 L 02/26/23 22:31 Oxygen Delivery Method Room Air 02/26/23 22:31 Oxygen Flow Rate 0 02/26/23 22:31 Pain Level 0 02/26/23 22:31 Critical Care Time Critical Care Time Critical Care Time: Yes Total Critical Care Time: 30 Attestation: Upon my evaluation, this patient had a high probability of imminent or life-threatening deterioration, which required my direct attention, intervention, and personal management. I have personally provided 30 minutes of critical care time exclusive of time spent on separately billable procedures. Time includes review of laboratory data, radiology results, discussion with consultants, and monitoring for potential decompensation. Interventions were performed as documented. POCUS Exam (ED) Limited Cardiac Exam DATE OF EXAM: 02/26/23 TIME OF EXAM: 23:09 PROVIDER THAT PERFORMED THE STUDY: Ismael Eason IS THIS A REPEAT EXAM DURING THIS ENCOUNTER: no REASON FOR EXAM: Dyspnea VISUALIZED STRUCTURES: Left atrium, Left ventricle, Right ventricle and Interventricular septum VIEW OBTAINED: Parasternal long-axis and Parasternal short-axis PERTINENT FINDINGS/IMPRESSION: LV dysfunction :moderate Exam complete Limited Thoracic Lung Exam DATE OF EXAM: 02/26/23 TIME OF EXAM: 23:10 PROVIDER THAT PERFORMED THE STUDY: Ismael Eason IS THIS A REPEAT EXAM DURING THIS ENCOUNTER: No REASON FOR EXAM: Shortness ofBreath VISUALIZED STRUCTURES: right lateral, left lateral, right posterior and left posterior PERTINENT FINDINGS/IMPRESSION: B-lines/left side Exam complete
[2023-02-26 23:00] LABS: Abs Immature Grans 0.03 10^3/uL (0.0-0.06); Absolute Basophil Count 0.02 10^3/uL (0.0-0.2); Absolute Eosinophil Count 0.24 10^3/uL (0.0-0.7); Absolute Lymphocyte Count 1.26 10^3/uL (1.2-3.4); Absolute Monocyte Count 0.64 10^3/uL (0.1-0.8); Absolute Neutrophil Count 3.34 10^3/uL (1.2-6.7); BE (Venous) 7 mmol/L (-2-3); Basophils % 0.4; Eosinophils % 4.3; HCO3 (Venous) 33 mmol/L (23-28); HCT 38.7 % (36.0-46.0); HGB 12.1 g/dL (11.2-15.7); Immature Grans % 0.5; Lymphocytes % 22.8; MCH 27.5 pg (27.0-33.0); MCHC 31.3 % (32.0-36.0); MCV 88 fL (80-95); MPV 10.5 fL (8.0-11.0); Monocytes % 11.6; Neutrophils % 60.4; O2 Sat (Venous) 36 %; Platelet Count 148 10^3/uL (130-400); RDW 17.4 % (11.7-14.6); RDW-SD 56.9 fL; TCO2 (Venous) 31 mmol/L (24-29); WBC 5.53 10^3/uL (4.4-10.8); pCO2 (Venous) 58 mmHg (41-51); pH (Venous) 7.36 (7.31-7.41); pO2 (Venous) 24 mmHg
[2023-02-26 23:20] LABS: ALT 11 U/L (14-59); AST 13 U/L (15-37); Albumin 2.7 g/dL (3.4-5.0); Alkaline Phosphatase 118 U/L (46-116); Anion Gap 4.2 mmol/L (3-11); BUN 28 mg/dL (7-18); Bilirubin, Total 0.4 mg/dL (0.2-1.0); CO2 31.8 mmol/L (21.0-32.0); CREATININE 0.9 mg/dL (0.55-1.02); Calcium 10.1 mg/dL (8.5-10.1); Chloride 101 mmol/L (98-107); Estimated GFR 72.28 (mL/min/1.73m2); Glucose 170 mg/dL (74-106); Potassium 3.9 mmol/L (3.5-5.1); Sodium 137 mmol/L (136-145); Total Protein 7.5 g/dL (6.4-8.2); Troponin I < 50 ng/L (<or=60)
[2023-02-26] MEDS: AMPICILLIN/SULBACTAM 3 GM in Normal Saline 100 ML IVPB (23:30)
--- NOTE | 2023-02-26 23:41 | DI.VRAD_ITS ---
PROCEDURE INFORMATION: Exam: XR Chest Exam date and time: 02/26/2023 11:00 PM Age: 62 years old Clinical indication: SOB; post endoscopy. Post-operative (0-2 days): Endoscope TECHNIQUE: Imaging protocol: Radiologic exam of the chest. Views: 1 view. COMPARISON: CR XR CHEST 2V PA LATERAL 12/17/2022; CT chest 01/31/2023 FINDINGS: Tubes, catheters and devices: Cardiac leads superimposed over the chest. Lungs: Patchy infiltrate within the inferior left lung. Portion of external radiopaque tubing superimposed over the lateral right upper lobe. Pleural spaces: No pneumothorax or pleural fluid collection. Heart/Mediastinum: Normal heart size. Bones/joints: Spinal degenerative changes. IMPRESSION: 1. No pneumothorax or pleural fluid collection. 2. Patchy infiltrate within the inferior left lung. Dictated and Authenticated by: Patric Meyer MD. Ordering:FARHAD Guevara MD
--- NOTE | 2023-02-26 23:59 | HPE_ITS ---
Date of service: 02/26/23 Time of Service: 23:59 Assessment and Plan Assessment and plan (1) Aspiration pneumonia: Status: Acute Assessment and plan: -As noted above patient presentation and chest x-ray consistent with aspiration pneumonia likely secondary to dilatation procedure [place] [facility] [place] in the [place] -Patient does not meet sepsis criteria as she does not have elevated white blood cell count, tachycardia, fever -Started on Unasyn in the emergency department, will continue -Of note, patient tested positive for COVID-19, however she initially had COVID- 19 about 1 month ago this is likely residual from that time, therefore will not treat for COVID at this time Qualifiers: Aspiration pneumonia type: due to gastric secretions Laterality: left Lung location: unspecified part of lung Qualified Code(s): J69.0 - Pneumonitis due to inhalation of food and vomit (2) Acute on chronic respiratory failure with hypoxia: Status: Acute Assessment and plan: - Patient on 2 L nasal cannula at baseline -Increased oxygen requirement secondary to aspiration as noted -Currently requiring BiPAP -We will wean BiPAP and placed back on nasal cannula with goal oxygen saturation 88 to 92% (3) Insulin dependent type 2 diabetes mellitus: Status: Acute Assessment and plan: -Continue home regimen -SSI, CCD (4) Chronic systolic (congestive) heart failure: Status: Acute Assessment and plan: - Continue home Toprol XL 50 mg daily, aspirin 81 mg daily, Lipitor 80 mg nightly, Aldactone 12.5 mg daily, Entresto 24/26 daily (5) Esophageal stricture: Status: Acute Assessment and plan: - Noted above, patient had esophageal dilatation procedure at [facility] [place] in the day on 02/26/2023 that likely resulted in aspiration event (6) PEG (percutaneous endoscopic gastrostomy) status: Status: Acute Assessment and plan: - Continue home PEG tube feeding regimen History of Present Illness History of Present Illness Chief Complaint: Shortness of breath Narrative: 62-year-old female with a past medical history of severe esophageal stricture requiring PEG tube for eating, IDDM, GERD, Farrell's esophagus, bipolar disorder, stress-induced cardiomyopathy secondary to NSTEMI send the emergency department with shortness of breath. Earlier in the day prior to presentation in the emergency department she was seen at [facility] she had an EGD and ligation for peptic stricture dilatation. Per [facility] patient tolerated procedure without any complications. However, after discharge she went home, had a normal day but upon laying down around 9:45 PM she stated she felt suddenly short of breath and could not breathe. She denied any cough, lightheadedness, dizziness, chest pain, fever. Upon EMS arrival the patient was noted to be hypoxic with an oxygen saturation in the low 70s despite being on her baseline 2 L nasal cannula. In the emergency department the patient was noted as being persistently hypoxic and required being placed on BiPAP. Remainder of her vitals were within normal limits, however it is noted the patient has baseline low blood pressure with systolics in 90s. She had a normal CBC, CMP, negative lactic. Chest x-ray showed infiltrate in the left lung with clear right lung suspicious for aspiration pneumonia. EKG showed no evidence of ST elevations, depressions or T wave inversions. At which time patient was started on Unasyn emergency room physician paged hospitalist for admission for patient with acute on chronic hypoxic respiratory failure secondary to aspiration pneumonia. Review of Systems All systems reviewed & are unremarkable except as noted in HPI and below PFSH All Active Problems (Updated 02/27/23 @ 06:40 by Darin Giron MD) Acute on chronic respiratory failure with hypoxia (Acute) PEG (percutaneous endoscopic gastrostomy) status (Acute) Esophageal stricture (Acute) Chronic systolic (congestive) heart failure (Acute) Insulin dependent type 2 diabetes mellitus (Acute) Aspiration pneumonia (Acute) Acute respiratory failure with hypoxia (Acute) COVID (Acute) 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 (Acute) s/p Hardware Removal and KYUNG (01-19-23) Depression (Chronic) Bipolar 1 disorder (Acute) Diabetes (Chronic) Cholelithiasis (Chronic) Ventral hernia (Acute) Leukocytosis (Acute) Pleural effusion (Acute) Black tarry stools (Acute) Chronic diarrhea (Acute) Farrell's esophagus (Chronic) Esophageal ulcer with bleeding (Acute) Erosive esophagitis (Acute) Farrell's 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 (Acute) Hyperplastic colon polyp (Acute ~06/10/21) Tubular adenoma (Acute ~06/10/21) Neuroleptic induced parkinsonism (Acute) Drug-induced parkinsonism (Acute) Anemia (Chronic) Status post hip surgery (Acute) H/O: pneumonia (Acute) Abnormal chest xray (Acute) Pre-op evaluation (Acute) Medical History Acute cardiogenic pulmonary edema Acute metabolic encephalopathy Acute respiratory failure with hypoxia Alcohol abuse Per pt. states she has never had an issues with any subtances Anxiety Bilateral pneumonia Chronic iron deficiency anemia Chronic pancreatitis due to acute alcohol intoxication Closed fracture of neck of left femur s/p Percutaneous Screw Fixation 08/09/22 Constipation Diabetes mellitus type 2 in obese ETOH abuse History of pilonidal cyst Hypokalemia NSTEMI (non-ST elevated myocardial infarction) Per pt. states she did not have a heart attack Poorly controlled diabetes mellitus Stress-induced cardiomyopathy acute onset managed at [facility] [place] 08/30 pressors, EF 25%, has since recovered RH Surgical History History of section History of colonoscopy with polypectomy (~06/10/21) History of esophagogastroduodenoscopy (EGD) (~06/10/21) History of hysterectomy History of tonsillectomy S/P laparoscopic procedure cyst removed from stomach per patient S/P surgical removal of pilonidal cyst Family History Father Hypertension Diabetes Heart disease Social History Smoking/Tobacco Use Status: Former Tobacco Use Quit Date: 02/07/21 Smoking risk assessment performed?: Yes Alcohol Intake: never Drug use: Never Substance use type: does not use Details: pt. 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 Meds Allergies and Home Medications Allergies Allergy/AdvReac Type Severity Reaction Status Date / Time metformin Allergy Unknown Verified 02/26/23 22:35 meperidine AdvReac gi upset Verified 02/26/23 22:35 Home Medications Medication Instructions Recorded Confirmed Type insulin aspart U-100 100 unit/mL 5 unit subcut TID 07/16/21 02/27/23 History (3 mL) subcutaneous pen (Novolog FlexPen U-100 Insulin aspart) sucralfate 1 gram tablet 1 g PO QID 08/08/22 02/27/23 History folic acid 1 mg tablet 1 mg PO DAILY #0 tabs 08/10/22 02/27/23 Rx multivitamin (Multiple Vitamins 1 tab PO DAILY #30 tabs 08/10/22 02/27/23 Rx tablet) atorvastatin 80 mg tablet 80 mg PO DAILY 11/18/22 02/27/23 History empagliflozin 10 mg tablet 10 mg PO DAILY 11/18/22 02/27/23 History (Jardiance) gabapentin 300 mg capsule 900 mg feeding tube TID 11/18/22 02/27/23 History insulin glargine 100 unit/mL 10 unit subcut QPM 11/18/22 02/27/23 History subcutaneous solution (Lantus U-100 Insulin) melatonin 3 mg capsule 9 mg PO HS PRN 11/18/22 02/27/23 History metoprolol succinate 50 mg 50 mg PO DAILY 11/18/22 02/27/23 History tablet,extended release 24 hr quetiapine 100 mg tablet 100 mg PO QHS 11/18/22 02/27/23 History sacubitril 24 mg-valsartan 26 mg 1 tab feeding tube DAILY 11/18/22 02/27/23 History tablet (Entresto) spironolactone 25 mg tablet 12.5 mg PO DAILY 11/18/22 02/27/23 History valproic acid (as sodium salt) 250 300 mg PO TID 11/18/22 02/27/23 History mg/5 mL oral solution bupropion HCl 100 mg tablet 300 mg PO DAILY 12/16/22 02/27/23 History insulin NPH isoph U-100 human 100 See Rx Instructions subcut DAILY 12/16/22 02/27/23 History unit/mL (3 mL) subcutaneous pen (Humulin N NPH U-100 Insulin KwikPen) protein pwd PO 12/16/22 02/15/23 History acetaminophen 500 mg/15 mL oral 1,000 mg (30 mL) PO Q8H PRN #237 mL 01/19/23 02/27/23 Rx liquid aspirin 81 mg chewable tablet 81 mg PO BID #60 tabs 01/19/23 02/27/23 Rx (Aspirin Childrens) ferrous sulfate 300 mg (60 mg mg .QOD 01/31/23 02/15/23 History iron)/5 mL oral liquid pantoprazole 40 mg granules 40 mg feeding tube BID 02/01/23 02/27/23 History delayed-release for susp in packet (Protonix) cefpodoxime 200 mg tablet 200 mg PO BID #10 tabs 02/02/23 02/15/23 Rx esomeprazole magnesium 40 mg 40 mg NG BID@07,2000 #0 ea 02/02/23 02/27/23 Rx granules delayed release for susp ibuprofen 100 mg/5 mL oral 600 mg (30 mL) PO Q8H #473 mL 02/15/23 02/15/23 Rx suspension Exam Narrative Exam Narrative: Fatigued appearing female laying in bed in no acute distress, BiPAP in place, AOx4, heart RRR, lungs with diffuse crackles in left lung, clear to auscultation in right lung, abdomen soft, non-tender, non-distended with PEG tube site clean and without erythema or tenderness Results Labs 02/26/23 22:55 02/26/23 22:55 Labs: Laboratory Results - last 24 hr 02/26/23 22:55 WBC 5.53 RBC 4.40 Hgb 12.1 Hct 38.7 MCV 88 MCH 27.5 MCHC 31.3 L RDW 17.4 H Plt Count 148 MPV 10.5 Immature Gran % 0.5 Neutrophils % 60.4 Lymphocytes % 22.8 Monocytes % 11.6 Eosinophils % 4.3 Basophils % 0.4 Nucleated RBC % 0.0 Absolute Neutrophils 3.34 Absolute Lymphocytes 1.26 Absolute Monocytes 0.64 Absolute Eosinophils 0.24 Absolute Basophils 0.02 VBG pH 7.36 VBG pCO2 58 H VBG pO2 24 VBG HCO3 33 H VBG Total CO2 31 H VBG O2 Saturation 36 VBG Base Excess 7 H Sodium 137 Potassium 3.9 Chloride 101 Carbon Dioxide 31.8 Anion Gap 4.2 BUN 28 H Creatinine 0.9 Est GFR (CKD-EPI 2020) 72.28 Glucose 170 H Calcium 10.1 Total Bilirubin 0.4 AST 13 L ALT 11 L Alkaline Phosphatase 118 H Troponin I < 50 Total Protein 7.5 Albumin 2.7 L Last Vital Signs Temp 97.3 F L 02/26/23 22:31 Pulse 55 L 02/26/23 22:31 Resp 22 02/26/23 23:24 BP 104/49 L 02/26/23 22:31 Pulse Ox 96 02/26/23 23:24 Time Spent Time spent with Patient: 55-74 minutes Time was spent: preparing to see the patient(eg.review tests), obtaining and/or reviewing separately otained hiistory, referring, communicating with other health rn complex care, indepentently interpreting results, counseling the patient and care coordination
[2023-02-27] VITALS (63 sets, daily range): BP systolic 70–106; BP diastolic 34–57; PULSE 48–78; RESP 5–22; TEMP 36.3–36.6; O2SAT 86–220
[2023-02-27 00:28] LABS: Source Nasal/Nares
--- NOTE | 2023-02-27 00:59 | W.PC.ACHO ---
Registration Status: REG ER Primary Language: Preferred Language: Mohawk ED Information & Data Chief Complaint SOB/SuddenOnset 02/26/23 22:58 Triage Note [place] [facility] [place]/26/23 22:31 feels like she can not get a deep breath. Medical / Surgical History (Last Reviewed 02/02/23 @ 10:01 by Alfonso Barber MD) Stress-induced cardiomyopathy NSTEMI (non-ST elevated myocardial infarction) Acute cardiogenic pulmonary edema Acute metabolic encephalopathy Bilateral pneumonia Hypokalemia Closed fracture of neck of left femur Constipation Diabetes mellitus type 2 in obese Chronic iron deficiency anemia ETOH abuse Poorly controlled diabetes mellitus Chronic pancreatitis due to acute alcohol intoxication Alcohol abuse History of pilonidal cyst Anxiety (Last Reviewed 02/02/23 @ 10:01 by Alfonso Barber MD) History of total left hip arthroplasty (01/19/23) S/P laparoscopic procedure S/P surgical removal of pilonidal cyst History of esophagogastroduodenoscopy (EGD) (~06/10/21) History of colonoscopy with polypectomy (~06/10/21) History of hysterectomy History of tonsillectomy History of section Most Recent Vital Signs Temperature 36.3 C L 02/26/23 22:31 Temperature Source Tympanic 02/26/23 22:31 Pulse 51 L 02/27/23 00:16 Pulse 53 L 02/27/23 00:16 Respiratory Rate 13 02/27/23 00:17 Respiratory Effort Normal 02/27/23 00:17 Respiratory Depth Normal 02/27/23 00:17 Respiratory Pattern Normal 02/27/23 00:17 Blood Pressure 79/44 L 02/27/23 00:16 Blood Pressure Mean 55 02/27/23 00:16 Blood Pressure Position Supine 02/26/23 22:31 Pulse Oximetry 99 02/27/23 00:16 Oxygen Delivery Method Room Air 02/26/23 22:31 Oxygen Flow Rate 0 02/26/23 22:31 Fraction of Inspired Oxygen (FIO2) 30 02/26/23 23:24 Pain Level 0 02/26/23 22:31 Allergies metformin Allergy (Unknown, Verified 02/26/23 22:35) diarrhea meperidine Adverse Reaction (Verified 02/26/23 22:35) gi upset IV IV Catheter Gauge [Left Upper 18 arm] Diagnostics 02/27/23 02/27/2323 Range/Units 01:34 00:20 22:55 WBC 5.53 (4.4-10.8) 10^3/uL RBC 4.40 (3.93-5.22) 10^6/uL Hgb 12.1 (11.2-15.7) g/dL Hct 38.7 (36.0-46.0) % MCV 88 (80-95) fL MCH 27.5 (27.0-33.0) pg MCHC 31.3 L (32.0-36.0) % RDW 17.4 H (11.7-14.6) % Plt Count 148 (130-400) 10^3/uL MPV 10.5 (8.0-11.0) fL Immature Gran % 0.5 Neutrophils % 60.4 Lymphocytes % 22.8 Monocytes % 11.6 Eosinophils % 4.3 Basophils % 0.4 Nucleated RBC % 0.0 (0.0-0.3) % Absolute Neutrophils 3.34 (1.2-6.7) 10^3/uL Absolute Lymphocytes 1.26 (1.2-3.4) 10^3/uL Absolute Monocytes 0.64 (0.1-0.8) 10^3/uL Absolute Eosinophils 0.24 (0.0-0.7) 10^3/uL Absolute Basophils 0.02 (0.0-0.2) 10^3/uL VBG pH 7.36 (7.31-7.41) VBG pCO2 58 H (41-51) mmHg VBG pO2 24 mmHg VBG HCO3 33 H (23-28) mmol/L VBG Total CO2 31 H (24-29) mmol/L VBG O2 Saturation 36 % VBG Base Excess 7 H (-2-3) mmol/L Sodium 137 (136-145) mmol/L Potassium 3.9 (3.5-5.1) mmol/L Chloride 101 (98-107) mmol/L Carbon Dioxide 31.8 (21.0-32.0) mmol/L Anion Gap 4.2 (3-11) mmol/L BUN 28 H (7-18) mg/dL Creatinine 0.9 (0.55-1.02) mg/dL Est GFR (CKD-EPI 2020) 72.28 (mL/min/1.73m2) Glucose 170 H (74-106) mg/dL Calcium 10.1 (8.5-10.1) mg/dL Total Bilirubin 0.4 (0.2-1.0) mg/dL AST 13 L (15-37) U/L ALT 11 L (14-59) U/L Alkaline Phosphatase 118 H (46-116) U/L Troponin I Pending < 50 (<or=60) ng/L Total Protein 7.5 (6.4-8.2) g/dL Albumin 2.7 L (3.4-5.0) g/dL COVID-19 Source Nasal/Nares SARS-CoV-2 (PCR) Pending Intake and Output - 24 Hour Total 02/26/23 22:27 thru 02/27/23 00:06 Intake Total 100 Balance 100 Weight 64.864 kg Intake: IV 100 Falls Risk Assessment Level of Risk High Risk 02/27/23 00:16 Problems (Last Reviewed 02/02/23 @ 10:01 by Alfonso Barber MD) PEG (percutaneous endoscopic gastrostomy) status (Acute) Esophageal stricture (Acute) Chronic systolic (congestive) heart failure (Acute) Insulin dependent type 2 diabetes mellitus (Acute) Aspiration pneumonia (Acute) Acute respiratory failure with hypoxia (Acute) v v v v v v v v v Sending and/or Receiving Nurses: Please use comment section below to note any information pertinent to the patient hand-off not included above. Information / Comments: presents today [place] [facility] [place]. uses 2LNC at baseline, HXO low Bp, temp 36.3, RR 33, 6LNC 89 spo2, axo SILVIA IV #18 unyson given in ED Bipap setting per RT Report received from: Kendal HWANG
[2023-02-27 01:14] LABS: COVID-19 PCR POSITIVE (Negative)
[2023-02-27 02:40] LABS: Troponin I < 50 ng/L (<or=60)
--- NOTE | 2023-02-27 06:53 | W.PC.ACHO ---
Registration Status: ADM IN Primary Language: Preferred Language: Azeri ED Information & Data Chief Complaint SOB/SuddenOnset 02/26/23 22:58 Triage Note endoscopy today at [facility] [place]. 02/26/23 22:31 feels like she can not get a deep breath. Medical / Surgical History (Last Reviewed 02/02/23 @ 10:01 by Alfonso Barber MD) Stress-induced cardiomyopathy NSTEMI (non-ST elevated myocardial infarction) Acute cardiogenic pulmonary edema Acute metabolic encephalopathy Bilateral pneumonia Hypokalemia Closed fracture of neck of left femur Constipation Diabetes mellitus type 2 in obese Chronic iron deficiency anemia ETOH abuse Poorly controlled diabetes mellitus Chronic pancreatitis due to acute alcohol intoxication Alcohol abuse History of pilonidal cyst Anxiety (Last Reviewed 02/02/23 @ 10:01 by Alfonso Barber MD) History of total left hip arthroplasty (01/19/23) S/P laparoscopic procedure S/P surgical removal of pilonidal cyst History of esophagogastroduodenoscopy (EGD) (~06/10/21) History of colonoscopy with polypectomy (~06/10/21) History of hysterectomy History of tonsillectomy History of section Most Recent Vital Signs Temperature 36.3 C L 02/27/23 04:10 Temperature Source Temporal Artery Scan 02/27/23 04:10 Pulse 52 L 02/27/23 05:58 Pulse 51 L 02/27/23 01:06 Respiratory Rate 17 02/27/23 05:58 Respiratory Effort Normal, Non-Labored 02/27/23 04:10 Respiratory Depth Normal 02/27/23 04:10 Respiratory Pattern Normal 02/27/23 04:10 Blood Pressure 92/48 L 02/27/23 04:10 Blood Pressure Mean 62 02/27/23 04:10 Blood Pressure Position Supine 02/27/23 04:10 Pulse Oximetry 98 02/27/23 05:58 Oxygen Delivery Method Bi-pap 02/27/23 04:10 Oxygen Flow Rate 0 02/26/23 22:31 Fraction of Inspired Oxygen (FIO2) 30 02/27/23 05:58 Pain Level 0 02/27/23 04:10 Allergies metformin Allergy (Unknown, Verified 02/26/23 22:35) diarrhea meperidine Adverse Reaction (Verified 02/26/23 22:35) gi upset Active Medications Generic Name Dose Route Start Last Admin Trade Name Freq PRN Reason Stop Dose Admin Ibuprofen 600 mg 02/27/23 03:00 02/27/23 03:37 Ibuprofen 100 Mg/5 Ml Cup NG Not Given Q8H LAZARUS IV IV Catheter Gauge [Left Upper 18 arm] Diet Orders Category Date Time Status Nothing Per Oral [DIET] Nutrition 02/27/23 Breakfast Active Tube Feeding [DIET] Nutrition 02/27/23 Breakfast Active Diagnostics 02/27/23 02/27/23 02/27/23 Range/Units 05:42 02:15 00:20 WBC Pending (4.4-10.8) 10^3/uL RBC Pending (3.93-5.22) 10^6/uL Hgb Pending (11.2-15.7) g/dL Hct Pending (36.0-46.0) % MCV Pending (80-95) fL MCH Pending (27.0-33.0) pg MCHC Pending (32.0-36.0) % RDW Pending (11.7-14.6) % Plt Count Pending (130-400) 10^3/uL MPV Pending (8.0-11.0) fL Immature Gran % Neutrophils % Lymphocytes % Monocytes % Eosinophils % Basophils % Nucleated RBC % (0.0-0.3) % Absolute Neutrophils (1.2-6.7) 10^3/uL Absolute Lymphocytes (1.2-3.4) 10^3/uL Absolute Monocytes (0.1-0.8) 10^3/uL Absolute Eosinophils (0.0-0.7) 10^3/uL Absolute Basophils (0.0-0.2) 10^3/uL VBG pH (7.31-7.41) VBG pCO2 (41-51) mmHg VBG pO2 mmHg VBG HCO3 (23-28) mmol/L VBG Total CO2 (24-29) mmol/L VBG O2 Saturation % VBG Base Excess (-2-3) mmol/L Sodium Pending (136-145) mmol/L Potassium Pending (3.5-5.1) mmol/L Chloride Pending (98-107) mmol/L Carbon Dioxide Pending (21.0-32.0) mmol/L Anion Gap Pending (3-11) mmol/L BUN Pending (7-18) mg/dL Creatinine Pending (0.55-1.02) mg/dL Est GFR (CKD-EPI 2020) Pending (mL/min/1.73m2) Glucose Pending (74-106) mg/dL Calcium Pending (8.5-10.1) mg/dL Total Bilirubin Pending (0.2-1.0) mg/dL AST Pending (15-37) U/L ALT Pending (14-59) U/L Alkaline Phosphatase Pending (46-116) U/L Troponin I < 50 (<or=60) ng/L Total Protein Pending (6.4-8.2) g/dL Albumin Pending (3.4-5.0) g/dL COVID-19 Source Nasal/Nares SARS-CoV-2 (PCR) POSITIVE A* (Negative) 02/26/23 Range/Units 22:55 WBC 5.53 (4.4-10.8) 10^3/uL RBC 4.40 (3.93-5.22) 10^6/uL Hgb 12.1 (11.2-15.7) g/dL Hct 38.7 (36.0-46.0) % MCV 88 (80-95) fL MCH 27.5 (27.0-33.0) pg MCHC 31.3 L (32.0-36.0) % RDW 17.4 H (11.7-14.6) % Plt Count 148 (130-400) 10^3/uL MPV 10.5 (8.0-11.0) fL Immature Gran % 0.5 Neutrophils % 60.4 Lymphocytes % 22.8 Monocytes % 11.6 Eosinophils % 4.3 Basophils % 0.4 Nucleated RBC % 0.0 (0.0-0.3) % Absolute Neutrophils 3.34 (1.2-6.7) 10^3/uL Absolute Lymphocytes 1.26 (1.2-3.4) 10^3/uL Absolute Monocytes 0.64 (0.1-0.8) 10^3/uL Absolute Eosinophils 0.24 (0.0-0.7) 10^3/uL Absolute Basophils 0.02 (0.0-0.2) 10^3/uL VBG pH 7.36 (7.31-7.41) VBG pCO2 58 H (41-51) mmHg VBG pO2 24 mmHg VBG HCO3 33 H (23-28) mmol/L VBG Total CO2 31 H (24-29) mmol/L VBG O2 Saturation 36 % VBG Base Excess 7 H (-2-3) mmol/L Sodium 137 (136-145) mmol/L Potassium 3.9 (3.5-5.1) mmol/L Chloride 101 (98-107) mmol/L Carbon Dioxide 31.8 (21.0-32.0) mmol/L Anion Gap 4.2 (3-11) mmol/L BUN 28 H (7-18) mg/dL Creatinine 0.9 (0.55-1.02) mg/dL Est GFR (CKD-EPI 2020) 72.28 (mL/min/1.73m2) Glucose 170 H (74-106) mg/dL Calcium 10.1 (8.5-10.1) mg/dL Total Bilirubin 0.4 (0.2-1.0) mg/dL AST 13 L (15-37) U/L ALT 11 L (14-59) U/L Alkaline Phosphatase 118 H (46-116) U/L Troponin I < 50 (<or=60) ng/L Total Protein 7.5 (6.4-8.2) g/dL Albumin 2.7 L (3.4-5.0) g/dL COVID-19 Source SARS-CoV-2 (PCR) (Negative) Intake and Output - 24 Hour Total 02/26/23 22:27 thru 02/27/23 01:50 Intake Total 100 Balance 100 Weight 64 kg Intake: IV 100 Falls Risk Assessment History of Falls No History 02/27/23 01:50 Contributing Factors No Factors,Unstable 02/27/23 01:50 Ambulatory Aids Uses ambulatory device 02/27/23 01:50 Tubes/Lines With any additional score 02/27/23 01:50 Gait Evaluation No gait disturbance 02/27/23 01:50 Cognition No cognitive impairment 02/27/23 01:50 Fall Total Score 38 02/27/23 01:50 Level of Risk Moderate Risk 02/27/23 01:50 Problems (Last Reviewed 02/02/23 @ 10:01 by Alfonso Barber MD) Acute on chronic respiratory failure with hypoxia (Acute) PEG (percutaneous endoscopic gastrostomy) status (Acute) Esophageal stricture (Acute) Chronic systolic (congestive) heart failure (Acute) Insulin dependent type 2 diabetes mellitus (Acute) Aspiration pneumonia (Acute) v v v v v v v v v Sending and/or Receiving Nurses: Please use comment section below to note any information pertinent to the patient hand-off not included above. Information / Comments: Report received from: Peace Reis RN
[2023-02-27 06:57] LABS: HCT 37.8 % (36.0-46.0); HGB 11.9 g/dL (11.2-15.7); MCH 27.8 pg (27.0-33.0); MCHC 31.5 % (32.0-36.0); MCV 88 fL (80-95); MPV 11.7 fL (8.0-11.0); Platelet Count 140 10^3/uL (130-400); RBC 4.28 10^6/uL (3.93-5.22); RDW 17.5 % (11.7-14.6); RDW-SD 56.8 fL; WBC 8.44 10^3/uL (4.4-10.8)
[2023-02-27 07:13] LABS: ALT 8 U/L (14-59); AST 13 U/L (15-37); Albumin 2.4 g/dL (3.4-5.0); Alkaline Phosphatase 107 U/L (46-116); Anion Gap 5.1 mmol/L (3-11); BUN 25 mg/dL (7-18); Bilirubin, Total 0.3 mg/dL (0.2-1.0); CO2 30.9 mmol/L (21.0-32.0); CREATININE 0.8 mg/dL (0.55-1.02); Calcium 10.2 mg/dL (8.5-10.1); Chloride 103 mmol/L (98-107); Estimated GFR 83.26 (mL/min/1.73m2); Glucose 92 mg/dL (74-106); Potassium 4.2 mmol/L (3.5-5.1); Sodium 139 mmol/L (136-145); Total Protein 6.7 g/dL (6.4-8.2)
[2023-02-27] MEDS: Gabapentin 300 MG CAP 900 MG NG ×3 (09:24→21:13)
[2023-02-27] MEDS: buPROPion 100 MG TAB 300 MG NG (09:24)
[2023-02-27] MEDS: Sacubitril/Valsartan 24 mg/26 mg TAB 1 EACH JT (09:24)
[2023-02-27] MEDS: Folic Acid 1 MG TAB NG (09:25)
[2023-02-27] MEDS: Aspirin 81 MG CHEW NG ×2 (09:25→21:13)
[2023-02-27] MEDS: Sucralfate 1 GM TAB NG ×4 (09:25→21:13)
[2023-02-27] MEDS: Spironolactone 25 MG TAB 12.5 MG NG (09:25)
[2023-02-27] MEDS: Metoprolol CR 50 MG TABCR PO (09:25)
[2023-02-27] MEDS: Empaglifozin 10 MG TAB NG (09:25)
[2023-02-27] MEDS: AMPICILLIN/SULBACTAM 3 GM in Normal Saline 100 ML IVPB ×3 (09:26→23:15)
[2023-02-27] MEDS: Enoxaparin 40 MG/0.4 ML SYR SC (09:27)
[2023-02-27 09:31] LABS: Lab Add On Test DONE
--- NOTE | 2023-02-27 09:37 | W.PM.PROGNOT ---
Date of Service Date of service: 02/27/23 Time of Service: 09:37 Assessment and Plan Assessment and plan (1) Aspiration pneumonia: Status: Acute Assessment and plan: Suspected aspiration event during an EGD. Continue unasyn. Encourage pulmonary toilet. Assess ambulatory O2 requirement. Wean O2 as tolerated. Qualifiers: Aspiration pneumonia type: due to gastric secretions Laterality: left Lung location: unspecified part of lung Qualified Code(s): J69.0 - Pneumonitis due to inhalation of food and vomit (2) Acute on chronic respiratory failure with hypoxia: Status: Acute Assessment and plan: Already better, off of BiPAP. I am also adding a dose of furosemide IV this morning to see if there is a fluid overload component since she does have slight crackles at B bases and received IVF with the procedure yesterday. Still requiring O2 at 2 L at rest (at home normally only uses O2 at night). Assess ambulatory pulse ox requirement. (3) Insulin dependent type 2 diabetes mellitus: Status: Acute Assessment and plan: Continue home regimen + SSI. (4) Chronic systolic (congestive) heart failure: Status: Acute Assessment and plan: Continue home regimen, but will give a 1 time dose of IV furosemide given a slight fluid overload component. (5) Esophageal stricture: Status: Acute Assessment and plan: [place] [facility] [place] NPO except sips/chips. Resume TFs. (6) PEG (percutaneous endoscopic gastrostomy) status: Status: Acute Assessment and plan: As above While here, providing Jevity 1.5 at 70 cc/hr x 12 hrs during the day as per prior nutrition recommendations (02/01/23 nutrition consult) (7) Lab test positive for detection of COVID-19 virus: Status: Acute Assessment and plan: Residual covid-19 positivity. Covid illness was actually over a month ago. She is no longer considered infectious and should not be on isolation precautions. (8) DVT prophylaxis: Status: Acute Assessment and plan: SC enoxaparin (9) Discharge planning issues: Status: Acute Assessment and plan: Full code Transfer out of the ICU to medical surgical floor. Subjective Subjective Interval history since last seen: Ms Irving feels better and would like to go home. She desaturated to the 80s when she was taken off of her BiPAP and then NC this am, so she is back to 2L of O2 while awake. Normally only uses O2 when asleep. We discussed the need to check ambulatory pulse ox and the likely discharge tomorrow instead, but a downgrade from the ICU status to [facility]. She agreed. NO dizziness, CP, SOB on O2, nausea. TFs run during the day for 12 hrs and are centram 1.5 at 72 cc/hr. Exam Narrative Exam Narrative: General: pleasant middle-aged female who is A&Ox3, NAD, appears comfortable sitting up in bed, but also not dyspneic/tachypneic when laying flat HEENT: EOMI, MMM Heart: RRR, no m/r/g Lungs: faint crackles at B bases Abdomen: soft, nontender, nondistended Extremities: no edema BLEs Objective Last Vital Signs Temp 36.5 C 02/27/23 08:00 Pulse 52 L 02/27/23 08:00 Resp 17 02/27/23 08:00 BP 104/44 L 02/27/23 07:01 Pulse Ox 98 02/27/23 08:00 Laboratory Results - last 24 hr 02/26/23 02/27/23 02/27/23 22:55 00:20 02:15 WBC 5.53 RBC 4.40 Hgb 12.1 Hct 38.7 MCV 88 MCH 27.5 MCHC 31.3 L RDW 17.4 H Plt Count 148 MPV 10.5 Immature Gran % 0.5 Neutrophils % 60.4 Lymphocytes % 22.8 Monocytes % 11.6 Eosinophils % 4.3 Basophils % 0.4 Nucleated RBC % 0.0 Absolute Neutrophils 3.34 Absolute Lymphocytes 1.26 Absolute Monocytes 0.64 Absolute Eosinophils 0.24 Absolute Basophils 0.02 VBG pH 7.36 VBG pCO2 58 H VBG pO2 24 VBG HCO3 33 H VBG Total CO2 31 H VBG O2 Saturation 36 VBG Base Excess 7 H Sodium 137 Potassium 3.9 Chloride 101 Carbon Dioxide 31.8 Anion Gap 4.2 BUN 28 H Creatinine 0.9 Est GFR (CKD-EPI 2020) 72.28 Glucose 170 H Calcium 10.1 Total Bilirubin 0.4 AST 13 L ALT 11 L Alkaline Phosphatase 118 H Troponin I < 50 < 50 Total Protein 7.5 Albumin 2.7 L COVID-19 Source Nasal/Nares SARS-CoV-2 (PCR) POSITIVE A* Add-On Test Request 02/27/23 02/27/23 05:42 Unknown WBC 8.44 RBC 4.28 Hgb 11.9 Hct 37.8 MCV 88 MCH 27.8 MCHC 31.5 L RDW 17.5 H Plt Count 140 MPV 11.7 H Immature Gran % Neutrophils % Lymphocytes % Monocytes % Eosinophils % Basophils % Nucleated RBC % Absolute Neutrophils Absolute Lymphocytes Absolute Monocytes Absolute Eosinophils Absolute Basophils VBG pH VBG pCO2 VBG pO2 VBG HCO3 VBG Total CO2 VBG O2 Saturation VBG Base Excess Sodium 139 Potassium 4.2 Chloride 103 Carbon Dioxide 30.9 Anion Gap 5.1 BUN 25 H Creatinine 0.8 Est GFR (CKD-EPI 2020) 83.26 Glucose 92 Calcium 10.2 H Total Bilirubin 0.3 AST 13 L ALT 8 L Alkaline Phosphatase 107 Troponin I Total Protein 6.7 Albumin 2.4 L COVID-19 Source SARS-CoV-2 (PCR) Add-On Test Request DONE Time Spent with Patient Time Spent with Patient: 35-49 minutes Time was spent: preparing to see the patient(eg.review tests), obtaining and/or reviewing separately otained hiistory, ordering medications,tests, procedures, referring, communicating with other health client care consultant, indepentently interpreting results, counseling the patient and care coordination
[2023-02-27 10:01] LABS: NT-proBNP 362 pg/mL (<300)
--- NOTE | 2023-02-27 10:20 | INITIAL_ITS ---
Date of service: 02/27/23 Time of Service: 10:23 Care Management Initial Assmt Initial Assessment REASON FOR HOSPITALIZATION:: Aspiration PNA, acute hypoxic respiratory failure PREVIOUS FUNCTIONAL STATUS/SOCIAL/FAMILY SUPPORTS:: Jennifer lives in [facility] with her Campos. 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 She and her have two adult sons, Geronimo and Carlton, one of whom lives locally and is supportive of the couple. Jennifer is independent with her ADLs at baseline. CURRENT FUNCTIONAL STATUS:: Jennifer was sitting up in bed when CM met with her. Her was in the room, talking to their son on the phone. Jennifer was minimally engaged in conversation, but reported that she is feeling ok, and was told by MD that she continues to require hospitalization, receiving IV antibiotics. She is hoping to discharge home tomorrow. She states that she is independent at home. CM will continue to follow. ADVANCE DIRECTIVES:: None on file; CM will offer forms. Has patient been provided with info about the portal/API?: Yes Did the patient sign up for the portal?: No CODE STATUS:: Full Code INSURANCE COVERAGE / FINANCIAL ISSUES:: [employer] CURRENT HOME/COMMUNITY SERVICES/EQUIPMENT:: [facility]. PT. PRIMARY CARE PHYSICIAN:: Ana Gillespie POTENTIAL DISCHARGE NEEDS:: Evaluations for further needs, follow up appointments. PATIENT/FAMILY EDUCATION NEEDS:: Review discharge instructions and limitations, discussion of self care needs including ask me three. ANTICIPATED BARRIERS TO DISCHARGE:: None. TRANSPORTATION:: Via private vehicle by her . PLAN:: Anticipate Jennifer will return home once medically cleared with a resumption of supports. Her will drive her home via private vehicle when ready. She will follow up with her PCP and discharge plan of care. CM will continue to follow. PFSH All Active Problems (Updated 02/27/23 @ 09:44 by Erin Damon MD) Lab test positive for detection of COVID-19 virus (Acute) Discharge planning issues (Acute) DVT prophylaxis (Acute) Acute on chronic respiratory failure with hypoxia (Acute) PEG (percutaneous endoscopic gastrostomy) status (Acute) Esophageal stricture (Acute) Chronic systolic (congestive) heart failure (Acute) Insulin dependent type 2 diabetes mellitus (Acute) Aspiration pneumonia (Acute) Acute respiratory failure with hypoxia (Acute) COVID (Acute) 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 (Acute) s/p Hardware Removal and KYUNG (01-19-23) Depression (Chronic) Bipolar 1 disorder (Acute) Diabetes (Chronic) Cholelithiasis (Chronic) Ventral hernia (Acute) Leukocytosis (Acute) Pleural effusion (Acute) Black tarry stools (Acute) Chronic diarrhea (Acute) Farrell's esophagus (Chronic) Esophageal ulcer with bleeding (Acute) Erosive esophagitis (Acute) Farrell's 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 (Acute) Hyperplastic colon polyp (Acute ~06/10/21) Tubular adenoma (Acute ~06/10/21) Neuroleptic induced parkinsonism (Acute) Drug-induced parkinsonism (Acute) Anemia (Chronic) Status post hip surgery (Acute) H/O: pneumonia (Acute) Abnormal chest xray (Acute) Pre-op evaluation (Acute) Medical History Acute cardiogenic pulmonary edema Acute metabolic encephalopathy Acute respiratory failure with hypoxia Alcohol abuse Per pt. states she has never had an issues with any subtances Anxiety Bilateral pneumonia Chronic iron deficiency anemia Chronic pancreatitis due to acute alcohol intoxication Closed fracture of neck of left femur s/p Percutaneous Screw Fixation 08/09/22 Constipation Diabetes mellitus type 2 in obese ETOH abuse History of pilonidal cyst Hypokalemia NSTEMI (non-ST elevated myocardial infarction) Per pt. states she did not have a heart attack Poorly controlled diabetes mellitus Stress-induced cardiomyopathy acute onset managed at [facility] [place] 08/30 pressors, EF 25%, has since recovered RH Surgical History History of section History of colonoscopy with polypectomy (~06/10/21) History of esophagogastroduodenoscopy (EGD) (~06/10/21) History of hysterectomy History of tonsillectomy S/P laparoscopic procedure cyst removed from stomach per patient S/P surgical removal of pilonidal cyst Family History Father Hypertension Diabetes Heart disease Social History Smoking/Tobacco Use Status: Former Tobacco Use Quit Date: 02/07/21 Smoking risk assessment performed?: Yes Alcohol Intake: never Drug use: Never Substance use type: does not use Details: pt. 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 Readmission Within the Past 30 Days Yes or No: Yes Date of First Admission Date of 1st Admission: 01/31/23 Date of this Admission Date of Admission: 02/26/23 This admission was: Through ED Speicalist Appointments Have you seen any other specialist since your 1st Admission?: Yes Date you saw the Specialist: 02/26/23 Specialist Seen: [facility] [place] [facility] ED visits How many ED visits in the past 12 months: 4 Assessment for Readmission Summary of readmission circumstances, based upon interviews: Jennifer presented on 01/31/23 with nakul; she was seen at [facility] [place] yesterday, 02/26/23, for an EGD/dilation procedure. Per report, this procedure went well, and she returned home later that day. Last evening, she became short of breath and hypoxic at home; EMS was called and she was placed on 6LO2, bringing her O2 saturation to the low 90s. She was placed on 8LO2 while in the ED; her baseline O2 requirement is 2L. She was admitted for possible aspiration pna and hypoxic respiratory failure. She will return home with a resumption of services once medically cleared.
[2023-02-27] MEDS: Ibuprofen 100 MG/5 ML CUP 600 MG NG ×2 (10:25→17:24)
[2023-02-27] MEDS: Furosemide 20 MG/2 ML VIAL 10 MG IVP (10:25)
--- NOTE | 2023-02-27 10:30 | PT.INIE ---
PT Notes Visit Reasons: Aspiration PNA, acute hypoxic resp. failure Inpatient Physical Therapy Evaluation Date: February 27, 2023 Referring Doctor: Erin Damon PT Orders: PT CONSULT: Limited ability Precautions: Standard, fall Patient Profile/Admitting Diagnosis: 62-year-old female with a past medical history of severe esophageal stricture requiring PEG tube for eating, IDDM, GERD, Farrell's esophagus, bipolar disorder, stress-induced cardiomyopathy secondary to NSTEMI send the emergency department with shortness of breath. Earlier in the day prior to presentation in the emergency department on 02/26/23 she was seen at [facility] [place] she had an EGD and ligation for peptic stricture dilatation. Per [facility] patient tolerated procedure without any complications. However, after discharge she went home, had a normal day but upon laying down around 9:45 PM she stated she felt suddenly short of breath and could not breathe. She denied any cough, lightheadedness, dizziness, chest pain, fever. Upon EMS arrival the patient was noted to be hypoxic with an oxygen saturation in the low 70s despite being on her baseline 2 L nasal cannula. 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 (Acute) s/p Hardware Removal and KYUNG (01-19-23)Depression (Chronic) Bipolar 1 disorder (Acute) Diabetes (Chronic) Cholelithiasis (Chronic) Ventral hernia (Acute) Leukocytosis (Acute) Pleural effusion (Acute) Black tarry stools (Acute) Chronic diarrhea (Acute) Farrell's esophagus (Chronic) Esophageal ulcer with bleeding (Acute) Erosive esophagitis (Acute) Farrell's 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 (Acute) Hyperplastic colon polyp (Acute ~06/10/21) Tubular adenoma (Acute ~06/10/21) Neuroleptic induced parkinsonism (Acute) Drug-induced parkinsonism (Acute) Anemia (Chronic) Status post hip surgery (Acute) H/O: pneumonia (Acute) Abnormal chest xray (Acute) Pre-op evaluation (Acute) Medical History Acute cardiogenic pulmonary edema Acute metabolic encephalopathy Acute respiratory failure with hypoxia Alcohol abuse Per pt. states she has never had an issues with any subtancesAnxiety Bilateral pneumonia Chronic iron deficiency anemia Chronic pancreatitis due to acute alcohol intoxication Closed fracture of neck of left femur s/p Percutaneous Screw Fixation 08/09/22Constipation Diabetes mellitus type 2 in obese ETOH abuse History of pilonidal cyst Hypokalemia NSTEMI (non-ST elevated myocardial infarction) Per pt. states she did not have a heart attackPoorly controlled diabetes mellitus Stress-induced cardiomyopathy acute onset managed at [facility] [place] 08/30 pressors, EF 25%, has since recovered RH Surgical History History of section History of colonoscopy with polypectomy (~06/10/21) History of esophagogastroduodenoscopy (EGD) (~06/10/21) History of hysterectomy History of tonsillectomy S/P laparoscopic procedure cyst removed from stomach per patientS/P surgical removal of pilonidal cyst Family History Father Hypertension Diabetes Heart disease Social History/Home Situation: Lives with spouse and adult child, [address] apartment Current Functional Limitations: Community distance ambulation, stair negotiation Equipment Owned/DME: Front wheel walker Subjective: Patient states that she is ready to try some ambulation. Indicates she just started outpatient therapy last week at [facility] status post left hip replacement. Indicates that she has some mild discomfort in the hip but reports it is well managed. Objective: General Observation: PEG tube for eating, telemetry, IV left upper extremity Mental Status: Very pleasant. Alert and oriented x3 Pain: 3/10 lateral aspect left hip. Vital Signs: 98% O2 saturation room air. Respiratory therapy present during evaluation monitoring O2 saturation. ROM: Right Upper Extremity: Within functional limits Left Upper Extremity: Within functional limits Right Lower Extremity: Hip flexion 120, abduction 40 degrees, knee flexion and extension within functional limits, ankle range of motion within normal limits plantar and dorsiflexion Left Lower Extremity: Patient performs heel slide in bed achieving 110 degrees of hip flexion, active abduction 30 degrees. Internal/external rotation not assessed. Knee flexion and extension within functional limits. Ankle range of motion plantarflexion and dorsiflexion within functional limits Strength: Strength: LE L R Hip flexion 4/5 4+/5 Hip abduction 3/5 3/5 Knee extension 5-/5 5-/5 Knee flexion 4+/5 4+/5 Dorsiflexion 4/5 3/5 Right Upper Extremity: 4/5 glenohumeral joint flexion, abduction, elbow flexion and extension. Good ultrasound technician. Left Upper Extremity: 4/5 glenohumeral joint flexion, abduction, elbow flexion and extension. Good ultrasound technician Sensation: Intact sensation light touch bilateral lower extremities. Bed Mobility/Transfers: Supine to sit: Head of bed 45 degrees min assist x1 Sit to stand: to front wheeled walker contact-guard x1 with verbal cues for hand placement Stand to sit (bed): From front wheel walker min assist x1 Gait: Ambulated 30 feet x 2 with contact-guard and front wheel walker. O2 saturation monitored via respiratory therapy. Desaturated to 91% with quick recovery to 94% with pursed lip breathing. Patient paused after 15 feet of ambulation, turn 180 degrees and return to bed. Patient positioned back in bed following ambulation with nursing notified. Balance: Static Sitting: Good Dynamic Sitting: Good Static Standing: Fair Dynamic Standing: Fair Special Tests: Mobility Limitations Standardized Measure [facility] AM-PAC 6 clicks Basic Mobility Inpatient Short Form: Raw Score: 17 Standardized Score: [] CMS Score: 51% Informed Consent/Education: Patient instructed in purpose of PT consult and plan of care. Assessment: Patient is a 62year old female referred to physical therapy services with the diagnosis of aspiration PNA, acute hypoxic respiratory failure. Patient presents with clinical signs and symptoms consistent with above diagnosis. Patient presents with functional mobility decline, generalized weakness, and dependence in ADLs requiring short-term rehab placement prior to D/C to home. Patient presents with clinical signs and symptoms consistent with current/admitting diagnoses that have resulted to mobility limitations, gait instability, generalized weakness, and overall ADL decline as demonstrated by the following impairment level findings: 1.? Decreased strength to B LE major muscle groups 2.? Impaired sitting/standing balance 3.? Impaired activity tolerance Impairments are contributing to the following functional limitations: 1.? Decline in bed mobility skills 2.? Decline in transfer skills 3.? Difficulty with ambulation without assistive device and physical assistance 4.? Increased completion time for mobility ADL performance 5.? Increased risk for falls 6.? Difficulty with managing steps alone safely Patient is assessed as a 51189 moderate complexity based on the following: History: 72-year-old female with past medical history as indicated above Examination: Demonstrable impairment in strength, balance, and mobility level with underlying impairments and functional limitations as exhibited above as well as deficit score of 51% utilizing the [facility] Mobility Inpatient Short Form Presentation: Evolving Decision Makin moderate complexity Goals: Goals X1 week 1. Supine-Sit: Independent 2. Sit-Supine: Independent 3. Sit-Stand: Independent 4. Stand-Sit: Independent 5. Bed-Chair: Independent 6. Chair-Bed: Independent 7. Gait: 250 feet with front wheel walker standby assist. 8. Stairs: 5 steps with use of railing and standby assist Plan of Care/Treatment Plan: 1-2x/day, 7 days/week x 1 week. Plan of care has been reviewed with the ASSOCIATE MERCHANT providing the service under Physical Therapy direction. Initiate Physical Therapy intervention for strengthening, bed mobility, transfers, gait, stairs, balance training, use of assistive device. DISCHARGE RECOMMENDATIONS: [] Home with no services [] [] Home with services [specify] X Home with outpatient PT : Recommend resumption of outpatient physical therapy when cleared medically. [] SNF for continued rehabilitation [] [] Ground Support Equipment Mechanic Care [] [] SNF versus LTC based on ability to participate and progress [] TREATMENT CODE/TIME: Initial Evaluation [id number] 10:20-10:50 Thank you for this referral. Tapan Hernández PT, DPT Disclaimer: This note was created using [employer] voice recognition software. It was reviewed for major content. However, there may be multiple small discrepancies and errors due to the voice recognition aspects of the software.
[2023-02-27] MEDS: Insulin NPH-Human 300 UNITS/3 ML PEN 20 UNIT SC (11:50)
[2023-02-27] MEDS: Normal Saline Flush 10 ML SYR (21:12)
[2023-02-27] MEDS: Atorvastatin 40 MG TAB 80 MG NG (21:13)
[2023-02-27] MEDS: Melatonin 3 MG TAB 9 MG PO (21:13)
[2023-02-27] MEDS: QUEtiapine 100 MG TAB NG (21:13)
[2023-02-27] MEDS: Normal Saline Flush 10 ML SYR IVP (23:17)
[2023-02-27] MEDS: Normal Saline 500 ML 30 ML IV (23:18)
[2023-02-28] VITALS (10 sets, daily range): BP systolic 87–96; BP diastolic 47–53; PULSE 51–57; RESP 12; TEMP 36.1–36.4; O2SAT 94–98
[2023-02-28] MEDS: Ibuprofen 100 MG/5 ML CUP 600 MG NG (02:00)
[2023-02-28] MEDS: Normal Saline Flush 10 ML SYR IVP (04:22)
[2023-02-28] MEDS: AMPICILLIN/SULBACTAM 3 GM in Normal Saline 100 ML IVPB (04:22)
[2023-02-28 06:48] LABS: Abs Immature Grans 0.02 10^3/uL (0.0-0.06); Absolute Basophil Count 0.03 10^3/uL (0.0-0.2); Absolute Eosinophil Count 0.28 10^3/uL (0.0-0.7); Absolute Lymphocyte Count 1.46 10^3/uL (1.2-3.4); Absolute Monocyte Count 0.63 10^3/uL (0.1-0.8); Absolute Neutrophil Count 3.31 10^3/uL (1.2-6.7); Basophils % 0.5; Eosinophils % 4.9; HCT 32.9 % (36.0-46.0); HGB 10.4 g/dL (11.2-15.7); Immature Grans % 0.3; Lymphocytes % 25.5; MCH 27.5 pg (27.0-33.0); MCHC 31.6 % (32.0-36.0); MCV 87 fL (80-95); MPV 11.7 fL (8.0-11.0); Neutrophils % 57.8; Platelet Count 155 10^3/uL (130-400); RBC 3.78 10^6/uL (3.93-5.22); RDW 17.5 % (11.7-14.6); RDW-SD 55.9 fL; WBC 5.73 10^3/uL (4.4-10.8)
[2023-02-28 07:15] LABS: BUN 23 mg/dL (7-18); CREATININE 0.8 mg/dL (0.55-1.02); Calcium 9.3 mg/dL (8.5-10.1); Chloride 105 mmol/L (98-107); Estimated GFR 83.26 (mL/min/1.73m2); Glucose 109 mg/dL (74-106); Magnesium 2.1 mg/dL (1.8-2.4); Potassium 3.9 mmol/L (3.5-5.1); Sodium 142 mmol/L (136-145)
[2023-02-28] MEDS: Gabapentin 300 MG CAP 900 MG NG (07:52)
[2023-02-28] MEDS: Sacubitril/Valsartan 24 mg/26 mg TAB 1 EACH JT (07:53)
[2023-02-28] MEDS: buPROPion 100 MG TAB 300 MG NG (07:53)
[2023-02-28] MEDS: Empaglifozin 10 MG TAB NG (07:54)
[2023-02-28] MEDS: Sucralfate 1 GM TAB NG (07:54)
[2023-02-28] MEDS: Aspirin 81 MG CHEW NG (07:54)
[2023-02-28] MEDS: Folic Acid 1 MG TAB NG (07:54)
[2023-02-28] MEDS: Enoxaparin 40 MG/0.4 ML SYR SC (07:55)
[2023-02-28] MEDS: Spironolactone 25 MG TAB 12.5 MG NG (07:55)
--- NOTE | 2023-02-28 08:52 | RESPIRATORY ---
Patient's baseline is 2L O2 at night.
--- NOTE | 2023-02-28 09:20 | PT.INTREAT ---
PT Notes Visit Reasons: Aspiration PNA, acute hypoxic resp. failure Date: 02/28/23 PRECAUTIONS: Fall, standard, activity as tolerated. CONTACT PRECAUTIONS FOR C.DIFF. SUBJECTIVE: Pt in bed when approached for therapy this morning, pt agreed to participating with therapy. OBJECTIVE: HR monitor in place ? PAIN: none reported VITALS: monitored by nursing staff. Therapeutic Activities 21027 20mins: Direct one-on-one instruction in dynamic activities to improve functional performance. ? BED MOBILITY/TRANSFERS? Rolling L/R: modified independent with bilateral bed rails Supine-sit: modified independent with bed rails and elevated HOB? Sit-supine: independent? Sit-stand: SBA? Stand-sit: SBA ? Bed-Chair: SBA? Chair-bed: SBA Provided skilled cues and instruction on performance and technique throughout. ? Ambulation ? Assistive Device: FWW ? Weight bearing: full Assist: CGA/SBA? Distance:?160' with IV line in tow ? Deviation: Stoop forward, low step height and step length ? Provided skilled instruction in proper exercise performance Provided skilled manual cues to facilitate proper muscle recruitment and/or form. ASSESSMENT:? pt vitals stayed WNL, pt getting ready for DC PLAN: Continue global strengthening per plan of care until patient is medically cleared to discharge home. TREATMENT CODE/TIME: [id number], , 20mins, 9:00-9:20am.
--- NOTE | 2023-02-28 10:22 | DSE_ITS ---
Date of service: 02/28/23 Time of Service: : DS: Diagnosis Discharge Diagnosis (1) Aspiration pneumonia: Status: Acute (2) Acute on chronic respiratory failure with hypoxia: Status: Resolved (3) Insulin dependent type 2 diabetes mellitus: Status: Chronic (4) Chronic systolic (congestive) heart failure: Status: Chronic (5) Esophageal stricture: Status: Acute (6) PEG (percutaneous endoscopic gastrostomy) status: Status: Chronic (7) Lab test positive for detection of COVID-19 virus: Status: Acute Discharge Plan Disposition Patient Disposition: Home Condition: Good Discharge Details Reason For Visit: Aspiration PNA, acute hypoxic resp. failure Admit Date/Time: 02/26/23 23:59 Admit Provider: Darin Giron Attending Provider: Darin Giron Primary Care Provider: Ana Gillespie Hospital Course Hospital Course: Ms Irving is a 62 year old female with PMHx of recurring esophageal stricture requiring repeated dilations and a gastrostomy tube, as well as h/o Farrell's esophagus, stress-induced cardiomyopathy, chronic hypoxic respiratory failure on 2L of O2 at home, IDDM, GERD, who was a patient on [facility] hospitalist service from 02/26/23 until 02/28/23 for aspiration pneumonia with acute on chronic hypoxic hypercapnic respiratory failure following an EGD earlier on 02/26/23 at [facility]. The patient was saturating in the 70s-80s on 2L of O2, so she was transitioned to BiPAP given evidence of CO2 retention by VBG (relatively compensated pH of 7.36, pCO2 of 58). Her CXR showed a LLL infiltrate, consistent with aspiration pneumonia. The patient was started unasyn. She did not meet sepsis criteria. She was admitted to the ICU as BiPAP was new to her. She responded well to the therapy and was transitioned off of O2 by the end of the following day. The patient also received a dose of IV furosemide x1 due to very mild pulmonary edema. She was felt to be at her baseline today, passed exercise oximetry on RA and is able to be discharged home with liquid augmentin and guaifenesin. Of note, we switched her toprol XL 50 mg to lopressor 25 mg per tube BID due to the fact that Toprol XL cannot be crushed. The patient did test positive for COVID-19 on this admisison, but had originally had the illness a month ago, and her positive PCR test on this admission represents residual positivity rather than a true clinical COVID-19 illness. Care for patient as well as completion of her discharge summary on the day of discharge took 45 minutes. Home Meds and New Rx's Prescriptions: New metoprolol tartrate 25 mg Tablet 25 mg NG BID Qty: 60 0RF amoxicillin-pot clavulanate [Augmentin] 250-62.5 mg/5 mL suspension for reconstitution 20 ml feeding tube BID Qty: 100 0RF guaifenesin 200 mg/5 mL liquid 400 mg feeding tube Q6H PRN (Reason: cough) Qty: 118 0RF Continued bupropion HCl 100 mg tablet 300 mg PO DAILY Patient Comments: via g-tube, per pcp ov notes 12/09/22 RH protein Powder PO ibuprofen 100 mg/5 mL suspension 600 mg PO Q8H Qty: 473 1RF gabapentin 300 mg capsule 900 mg feeding tube TID Patient Comments: via g-tube Entresto 24-26 mg tablet 1 tab feeding tube DAILY Patient Comments: via g-tube Jardiance 10 mg tablet 10 mg PO DAILY insulin glargine [Lantus U-100 Insulin] 100 unit/mL solution 10 unit subcut QPM quetiapine 100 mg tablet 100 mg PO QHS atorvastatin 80 mg tablet 80 mg PO DAILY valproic acid (as sodium salt) 250 mg/5 mL solution 300 mg PO TID Rx Instructions: 6mls TID metoprolol succinate 50 mg tablet extended release 24 hr 50 mg PO DAILY spironolactone 25 mg tablet 12.5 mg PO DAILY Hold Instructions: Changed by Provider melatonin 3 mg capsule 9 mg PO HS PRN Patient Comments: via g-tube sucralfate 1 gram tablet 1 g PO QID Patient Comments: TAKE ONE TABLET BY MOUTH FOUR TIMES A DAY folic acid 1 mg Tablet 1 mg PO DAILY Qty: 0 0RF multivitamin [Multiple Vitamins] Tablet 1 tab PO DAILY Qty: 30 0RF ferrous sulfate 300 mg (60 mg iron)/5 mL liquid .QOD Patient Comments: TAKE 5ML VIA G-TUBE EVERY OTHER DAY esomeprazole magnesium [address] For Susp In Packet 40 mg NG BID@0730,1999 Qty: 0 0RF acetaminophen 500 mg/15 mL liquid 1,000 mg PO Q8H PRNQty: 237 2RF aspirin [Aspirin Childrens] 81 mg tablet,chewable 81 mg PO BID Qty: 60 0RF Rx Instructions: via g-tube Changed Humulin N NPH Insulin KwikPen 100 unit/mL (3 mL) insulin pen See Rx Instructions .ROUTE .COMPLEX Qty: 0 0RF Rx Instructions: 20 units at 11 am followed by sliding scale at 3 pm (5 units for blood sugar of 250 plus 1 additional unit for any 20 points that the blood sugar is above 250) Discontinued insulin aspart U-100 [Novolog FlexPen U-100 Insulin] 100 unit/mL (3 mL) insulin pen 5 unit subcut TID Rx Instructions: Inject 1 unit subcutaneously twice a day as directed, inject 2 units for BG 151-250, 3 units for BG 251-300, 4 units for BG 301-350 pantoprazole [Protonix] [address] for susp in packet 40 mg feeding tube BID Patient Comments: DISSOLVE ONE PACKET IN 10ML OF APPLE JUICE THEN FOLLOW WITH ANOTHER 10ML AND TAKE VIA G-TUBE TWO TIMES A DAY cefpodoxime 200 mg tablet 200 mg PO BID Qty: 10 0RF Rx Instructions: must administer with a meal/food First dose tonight; 02/02/23 Discharge Instructions Instructions: Amoxicillin/Clavulanate Potassium (By mouth), Antitussive/Expectorant (By mouth), Aspiration Pneumonia (DC) Additional Instructions: Finish your antibiotics as prescribed. Return to the hospital with any fever, bleeding, chest pain, or worsening shortness of breath or oxygen saturation. Follow up with your PCP in 1-2 weeks. Referrals: Ana Gillespie [Primary Care Provider] - Activity:: Activity as Tolerated Equipment/Supplies:: No Equipment Needed Diet:: tube feeding Discharge Orders Discharge Orders: Discharge Order (Routine); Ordered 02/28/23 Ordered By: Erin Damon Discharge Data Discharge Date/Time-TO BE ENTERED AT DEPARTURE: 02/28/23 11:09 DS: Summary Time Spent with Patient providing and/or coordinating discharge services: Greater than 30 minutes Status at Discharge Functional status at discharge: independent ambulation Overall status at discharge: patient is progressing back to baseline Mental Status: mental status grossly normal Speech and Movement: speech and movement normal Mood: congruent mood Affect: normal affect Exam Narrative Exam Narrative: General: pleasant middle-aged female who is A&Ox3, NAD, on RA, no dyspnea/tachypnea/cyanosis HEENT: EOMI, MMM Heart: RRR, no m/r/g Lungs: CTAB Abdomen: soft, nontender, nondistended Extremities: no edema BLEs Psych Mental Status: mental status grossly normal Speech and Movement: speech and movement normal Mood: congruent mood Affect: normal affect DS: Data Vitals/I&O Vitals and I&O: Vital Signs Temperature 36.4 C L 02/28/23 08:53 Temperature Source Temporal Artery Scan 02/28/23 08:53 Pulse 57 L 02/28/23 08:53 Pulse Rhythm Regular 02/28/23 08:53 Pulse 60 02/27/23 14:07 Respiratory Rate 12 02/28/23 08:53 Respiratory Effort Normal 02/28/23 08:53 Respiratory Depth Normal 02/28/23 08:53 Respiratory Pattern Normal 02/28/23 08:53 Blood Pressure 96/53 L 02/28/23 08:53 Blood Pressure Mean 63 02/28/23 03:48 Blood Pressure Position Supine 02/27/23 08:00 Pulse Oximetry 94 02/28/23 08:53 Oxygen Delivery Method Nasal Cannula 02/28/23 08:53 Oxygen Flow Rate 2 02/28/23 08:53 Fraction of Inspired Oxygen (FIO2) 2 02/28/23 02:23 Pain Level 0 02/28/23 08:53 Comment SPO2 probe changed to Left Ring Finger 02/28/23 05:30 Intake & Output 02/27/23 02/27/23 02/28/23 11:59 23:59 11:59 Intake Total 515 / 1335 760 / 1335 312 / 312 Output Total 300 / 1450 1150 / 1450 250 / 250 Balance 215 / -115 -390 / -115 62 / 62 Weight 64 kg 64 kg Intake: IV 200 / 400 200 / 400 252 / 252 Oral 60 / 60 Intake, Tube Feeding Amount 315 / 875 560 / 875 0 / 0 Output: Urine 300 / 1100 800 / 1100 250 / 250 Stool 350 / 350 Output, Residual 0 / 0 Other: Urine Color Yellow Yellow Yellow Urine Appearance Clear Clear Clear Urine Odor None None Comment up to commode several times with urine and stool Patient denied need to use bathroom and then rang appropriately to use bedside commode shortly after offer. Use of rolling walker to [facility]. Denied any feelings of dizziness with position change. Steady on feet. Stool Size Moderate Small Stool Characteristics Soft Soft Liquid Brown Voiding Methods Bedside Commode Bedside Commode Bedside Commode Data Completed and Pending Completed studies during hospitalization [Text1]: CXR: Significant infiltrate in the left lower lobe. No obvious pleural effusions. Labs on day of discharge: Labs from last 24 hours 02/28/23 05:20 WBC 5.73 RBC 3.78 L Hgb 10.4 L Hct 32.9 L MCV 87 MCH 27.5 MCHC 31.6 L RDW 17.5 H Plt Count 155 MPV 11.7 H Immature Gran % 0.3 Neutrophils % 57.8 Lymphocytes % 25.5 Monocytes % 11.0 Eosinophils % 4.9 Basophils % 0.5 Nucleated RBC % 0.0 Absolute Neutrophils 3.31 Absolute Lymphocytes 1.46 Absolute Monocytes 0.63 Absolute Eosinophils 0.28 Absolute Basophils 0.03 Sodium 142 Potassium 3.9 Chloride 105 Carbon Dioxide 30.0 Anion Gap 7.0 BUN 23 H Creatinine 0.8 Est GFR (CKD-EPI 2020) 83.26 Glucose 109 H Calcium 9.3 Magnesium 2.1 PFSH All Active Problems (Updated 02/28/23 @ 10:23 by Erin Damon MD) Lab test positive for detection of COVID-19 virus (Acute) Discharge planning issues (Acute) DVT prophylaxis (Acute) PEG (percutaneous endoscopic gastrostomy) status (Chronic) Esophageal stricture (Acute) Chronic systolic (congestive) heart failure (Chronic) 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) Aspiration pneumonia (Acute) Acute respiratory failure with hypoxia (Acute) COVID (Acute) 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 (Acute) s/p Hardware Removal and KYUNG (01-19-23) Depression (Chronic) Bipolar 1 disorder (Acute) Diabetes (Chronic) Cholelithiasis (Chronic) Ventral hernia (Acute) Leukocytosis (Acute) Pleural effusion (Acute) Black tarry stools (Acute) Chronic diarrhea (Acute) Farrell's esophagus (Chronic) Esophageal ulcer with bleeding (Acute) Erosive esophagitis (Acute) Farrell's 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 (Acute) Hyperplastic colon polyp (Acute ~06/10/21) Tubular adenoma (Acute ~06/10/21) Neuroleptic induced parkinsonism (Acute) Drug-induced parkinsonism (Acute) Anemia (Chronic) Status post hip surgery (Acute) H/O: pneumonia (Acute) Abnormal chest xray (Acute) Pre-op evaluation (Acute) Medical History Acute cardiogenic pulmonary edema Acute metabolic encephalopathy Acute respiratory failure with hypoxia Alcohol abuse Per pt. states she has never had an issues with any subtances Anxiety Bilateral pneumonia Chronic iron deficiency anemia Chronic pancreatitis due to acute alcohol intoxication Closed fracture of neck of left femur s/p Percutaneous Screw Fixation 08/09/22 Constipation Diabetes mellitus type 2 in obese ETOH abuse History of pilonidal cyst Hypokalemia NSTEMI (non-ST elevated myocardial infarction) Per pt. states she did not have a heart attack Poorly controlled diabetes mellitus Stress-induced cardiomyopathy acute onset managed at [facility] 08/30 pressors, EF 25%, has since recovered RH Surgical History History of section History of colonoscopy with polypectomy (~06/10/21) History of esophagogastroduodenoscopy (EGD) (~06/10/21) History of hysterectomy History of tonsillectomy S/P laparoscopic procedure cyst removed from stomach per patient S/P surgical removal of pilonidal cyst Family History Father Hypertension Diabetes Heart disease Social History Smoking/Tobacco Use Status: Former Tobacco Use Quit Date: 02/07/21 Smoking risk assessment performed?: Yes Alcohol Intake: never Drug use: Never Substance use type: does not use Details: pt. 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 Time Spent with Patient Time Spent with Patient: 45-69 minutes Time was spent: preparing to see the patient(eg.review tests), obtaining and/or reviewing separately otained hiistory, ordering medications,tests, procedures, referring, communicating with other health respite care provider, indepentently interpreting results, counseling the patient and care coordination
--- NOTE | 2023-02-28 11:42 | PDOC.CMDIS ---
Date of service: 02/28/23 Time of Service: 11:42 LACE Index Scoring Tool Questions: Length of Stay (in days): 2 Was the patient admitted via the E.D.?: Yes Comorbidities: Diabetes w/o Complication E.D. Visits: 4 Answers: Total Score: 10 Risk of Readmission: High Risk Care Management Discharge Plan Reason for Hospitalization: Aspiration PNA, acute hypoxic respiratory failure Discharge Plan: Jennifer returned home today with no new services. Her drove her home via private vehicle. She will follow up with her PCP and discharge plan of care. She is happy to be going home. Patient/Family Education Needs: Review discharge instructions and limitations, discussion of self care needs including ask me three.
--- NOTE | 2023-03-04 14:48 | PT.INDS ---
PT Notes Visit Reasons: Aspiration PNA, acute hypoxic resp. failure Inpatient Physical Therapy Discharge Summary Dates of Service: February 27, 2023 - February 28, 2023 Date: 03/04/23 Referring Doctor: Erin Damon PT Orders: PT CONSULT: Limited ability Precautions: Standard, fall This document serves as a summary of care. No PT services were provided on this date. Patient Profile/Admitting Diagnosis: 62-year-old female with a past medical history of severe esophageal stricture requiring PEG tube for eating, IDDM, GERD, Farrell's esophagus, bipolar disorder, stress-induced cardiomyopathy secondary to NSTEMI send the emergency department with shortness of breath. Patient was seen for 2 sessions of PT intervention over the course of 2 days. They were able to demonstrate safety and mobility sufficient to allow for safe return home. 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 (Acute) s/p Hardware Removal and KYUNG (01-19-23)Depression (Chronic) Bipolar 1 disorder (Acute) Diabetes (Chronic) Cholelithiasis (Chronic) Ventral hernia (Acute) Leukocytosis (Acute) Pleural effusion (Acute) Black tarry stools (Acute) Chronic diarrhea (Acute) Farrell's esophagus (Chronic) Esophageal ulcer with bleeding (Acute) Erosive esophagitis (Acute) Farrell's 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 (Acute) Hyperplastic colon polyp (Acute ~06/10/21) Tubular adenoma (Acute ~06/10/21) Neuroleptic induced parkinsonism (Acute) Drug-induced parkinsonism (Acute) Anemia (Chronic) Status post hip surgery (Acute) H/O: pneumonia (Acute) Abnormal chest xray (Acute) Pre-op evaluation (Acute) Medical History Acute cardiogenic pulmonary edema Acute metabolic encephalopathy Acute respiratory failure with hypoxia Alcohol abuse Per pt. states she has never had an issues with any subtancesAnxiety Bilateral pneumonia Chronic iron deficiency anemia Chronic pancreatitis due to acute alcohol intoxication Closed fracture of neck of left femur s/p Percutaneous Screw Fixation 08/09/22Constipation Diabetes mellitus type 2 in obese ETOH abuse History of pilonidal cyst Hypokalemia NSTEMI (non-ST elevated myocardial infarction) Per pt. states she did not have a heart attackPoorly controlled diabetes mellitus Stress-induced cardiomyopathy acute onset managed at [facility] 08/30 pressors, EF 25%, has since recovered RH Surgical History History of section History of colonoscopy with polypectomy (~06/10/21) History of esophagogastroduodenoscopy (EGD) (~06/10/21) History of hysterectomy History of tonsillectomy S/P laparoscopic procedure cyst removed from stomach per patientS/P surgical removal of pilonidal cyst Family History Father Hypertension Diabetes Heart disease Social History/Home Situation: Lives with spouse and adult child, [address] apartment Current Functional Limitations: Community distance ambulation, stair negotiation Equipment Owned/DME: Front wheel walker Subjective: none obtained Objective: ROM: Right Upper Extremity: Within functional limits Left Upper Extremity: Within functional limits Right Lower Extremity: Hip flexion 120, abduction 40 degrees, knee flexion and extension within functional limits, ankle range of motion within normal limits plantar and dorsiflexion Left Lower Extremity: Patient performs heel slide in bed achieving 110 degrees of hip flexion, active abduction 30 degrees. Internal/external rotation not assessed. Knee flexion and extension within functional limits. Ankle range of motion plantarflexion and dorsiflexion within functional limits Strength: Strength: LE L R Hip flexion 4/5 4+/5 Hip abduction 3/5 3/5 Knee extension 5-/5 5-/5 Knee flexion 4+/5 4+/5 Dorsiflexion 4/5 3/5 Right Upper Extremity: 4/5 glenohumeral joint flexion, abduction, elbow flexion and extension. Good real estate services coordinator. Left Upper Extremity: 4/5 glenohumeral joint flexion, abduction, elbow flexion and extension. Good real estate services coordinator Sensation: Intact sensation light touch bilateral lower extremities. B BED MOBILITY/TRANSFERS? Rolling L/R: modified independent with bilateral bed rails Supine-sit: modified independent with bed rails and elevated HOB? Sit-supine: independent? Sit-stand: SBA? Stand-sit: SBA ? Bed-Chair: SBA? Chair-bed: SBA Provided skilled cues and instruction on performance and technique throughout. ? Ambulation ? Assistive Device: FWW ? Weight bearing: full Assist: CGA/SBA? Distance:?160' Balance: Static Sitting: Good Dynamic Sitting: Good Static Standing: Fair Dynamic Standing: Fair Assessment: Patient is a 62year old female referred to physical therapy services with the diagnosis of aspiration PNA, acute hypoxic respiratory failure. Patient was seen for 2 sessions of PT intervention over the course of 2 days. They were able to demonstrate safety and mobility sufficient to allow for safe return home. Goals: Goals X1 week 1. Supine-Sit: Independent (Progressing Toward) 2. Sit-Supine: Independent (MET) 3. Sit-Stand: Independent(Progressing Toward) 4. Stand-Sit: Independent(Progressing Toward) 5. Bed-Chair: Independent(Progressing Toward) 6. Chair-Bed: Independent(Progressing Toward) 7. Gait: 250 feet with front wheel walker standby assist.(Progressing Toward) 8. Stairs: 5 steps with use of railing and standby assist(Progressing Toward) Plan of Care/Treatment Plan: D/C from PT in acute care setting DISCHARGE RECOMMENDATIONS: [] Home with no services [] [] Home with services [specify] X Home with outpatient PT : Recommend resumption of outpatient physical therapy when cleared medically. [] SNF for continued rehabilitation [] [] Veterinary Technician Instructor Care [] [] SNF versus LTC based on ability to participate and progress [] TREATMENT CODE/TIME: Thank you for this referral. Nery Moncada PT, DPT [facility]
== END 2023-02-28 11:09 | disposition home or self-care (01) | DRG 177 ==
LOC: ER 02-27 00:09 → ICU 02-27 01:30
PROVIDERS: Internal Medicine; Admitting Provider Family Medicine; Emergency Provider Student in an Organized Health Care Education/Training Program; PCP Nurse Practitioner Family; Visit Provider Family Medicine
DX: J69.0 Pneumonitis due to inhalation of food and vomit (principal); J96.21 Acute and chronic respiratory failure with hypoxia; U07.1 COVID-19; I50.22 Chronic systolic (congestive) heart failure; G21.11 Neuroleptic induced parkinsonism; K86.0 Alcohol-induced chronic pancreatitis; K22.2 Esophageal obstruction; K22.70 Barrett's esophagus without dysplasia; F31.9 Bipolar disorder, unspecified; K80.20 Calculus of gallbladder without cholecystitis without obstruction; K52.9 Noninfective gastroenteritis and colitis, unspecified; F41.9 Anxiety disorder, unspecified; D50.9 Iron deficiency anemia, unspecified; E11.65 Type 2 diabetes mellitus with hyperglycemia; F10.10 Alcohol abuse, uncomplicated; Z93.1 Gastrostomy status; Z79.4 Long term (current) use of insulin; Z87.891 Personal history of nicotine dependence; I25.2 Old myocardial infarction; Z99.81 Dependence on supplemental oxygen
CPT/HCPCS: 00123; 36415; 76604; 80048; 80053; 82805; 85027; 87635; 93005; 93308; 94618; 96365; 97116; 97162; 99291; J1650; 71045; 83735; 83880; 84484; 85025; 93010; 94660; 94667; 94760; 99223; 99233; 99239; J0295; J1941

== ENCOUNTER 2023-03-13 08:38 | Emergency (ER) | payer MEDICAID, SELFPAY ==
[2023-03-13 08:43] VITALS: BP 152/54; PULSE 66; RESP 16; TEMP 36.6; O2SAT 97
--- NOTE | 2023-03-13 13:47 | ED.GENADUL_ITS ---
Discharge Plan Disposition Patient Disposition: Home Discharge Details Clinical Impression: PEG tube malfunction, Irritation around percutaneous endoscopic gastrostomy (PEG) tube site Primary Care Provider: Ana Gillespie ED Provider: Parminder Qureshi Home Meds and New Rx's Prescriptions: Continued bupropion HCl 100 mg tablet 300 mg PO DAILY Patient Comments: via g-tube, per pcp ov notes 12/09/22 RH protein Powder PO ibuprofen 100 mg/5 mL suspension 600 mg PO Q8H Qty: 473 1RF gabapentin 300 mg capsule 900 mg feeding tube TID Patient Comments: via g-tube Entresto 24-26 mg tablet 1 tab feeding tube DAILY Patient Comments: via g-tube Jardiance 10 mg tablet 10 mg PO DAILY insulin glargine [Lantus U-100 Insulin] 100 unit/mL solution 10 unit subcut QPM quetiapine 100 mg tablet 100 mg PO QHS atorvastatin 80 mg tablet 80 mg PO DAILY valproic acid (as sodium salt) 250 mg/5 mL solution 300 mg PO TID Rx Instructions: 6mls TID metoprolol succinate 50 mg tablet extended release 24 hr 50 mg PO DAILY spironolactone 25 mg tablet 12.5 mg PO DAILY Hold Instructions: Changed by Provider melatonin 3 mg capsule 9 mg PO HS PRN Patient Comments: via g-tube sucralfate 1 gram tablet 1 g PO QID Patient Comments: TAKE ONE TABLET BY MOUTH FOUR TIMES A DAY folic acid 1 mg Tablet 1 mg PO DAILY Qty: 0 0RF multivitamin [Multiple Vitamins] Tablet 1 tab PO DAILY Qty: 30 0RF ferrous sulfate 300 mg (60 mg iron)/5 mL liquid .QOD Patient Comments: TAKE 5ML VIA G-TUBE EVERY OTHER DAY esomeprazole magnesium [address] For Susp In Packet 40 mg NG BID@ Qty: 0 0RF metoprolol tartrate 25 mg Tablet 25 mg NG BID Qty: 60 0RF amoxicillin-pot clavulanate [Augmentin] 250-62.5 mg/5 mL suspension for reconstitution 20 ml feeding tube BID Qty: 100 0RF guaifenesin 200 mg/5 mL liquid 400 mg feeding tube Q6H PRN (Reason: cough) Qty: 118 0RF Humulin N NPH Insulin KwikPen 100 unit/mL (3 mL) insulin pen See Rx Instructions .ROUTE .COMPLEX Qty: 0 0RF Rx Instructions: 20 units at 11 am followed by sliding scale at 3 pm (5 units for blood sugar of 250 plus 1 additional unit for any 20 points that the blood sugar is above 250) acetaminophen 500 mg/15 mL liquid 1,000 mg PO Q8H PRNQty: 237 2RF aspirin [Aspirin Childrens] 81 mg tablet,chewable 81 mg PO BID Qty: 60 0RF Rx Instructions: via g-tube Discharge Instructions Additional Instructions: Please ensure that you crushed your medications well before inserting them into the feeding tube and also flush copious amounts of fluid after instilling any medications to ensure that the tube remains open. If you have any new or significant worsening of symptoms feel free to return the emergency department for reassessment otherwise follow-up with your primary care provider or surgery team as needed Referrals: Ana Gillespie [Primary Care Provider] - (As needed) Medical Decision Making Patient presenting to the emergency department with significant other for chief complaint of PEG tube dysfunction. Patient has past medical history of esophageal stenosis with G-tube placement for medication and feedings . justin ferrer states that this morning when he attempted to give patient her meds could not flush the PEG tube. Patient denies pain discomfort or any other symptom. They do report that tube was just placed on Wednesday and have had tube in place for 5 months with no dysfunction noted. Physical exam shows an placed PEG tube with some visible residue noted in tube and irritation of the skin around insertion site otherwise unremarkable exam. We did attempt to open the tube up with use of airway stylette, Coca-Cola, and multiple flushes including warm water flushes which did not open tube out. Dr. Rosales was able to come down and unclog tube. Patient encouraged to crush last medication and irrigate thoroughly after meds given through tube. After discussion of diagnosis and plan of care, family and patient has no further needs, questions, or concerns and states clear understanding to return to the emergency department for any worsening symptoms. This documentation was generated using [employer] system, please disregard any oddities of phrase or misspellings. HPI General Mode of arrival: ambulatory . Date/Time Provider Initiated Documentation: 03/13/23 08:38 . Limitations to Documentation: no limitations . Information obtained by: patient, family and RN notes reviewed . History of Present Illness 62 year old F presents to the emergency department with the chi ef complaint of PEG tube dysfunction, Patient started experiencing this hour(s) (2) and it has been constant. No relieving factors improve symptom(s), No exacerbating factors reported . Patient notes no other symptoms.. Patient did receive the following treatments prior to arrival, none Related Data Home Medications Medication Instructions Recorded Confirmed sucralfate 1 gram tablet 1 g PO QID 08/08/22 02/27/23 folic acid 1 mg tablet 1 mg PO DAILY #0 tabs 08/10/22 02/27/23 multivitamin (Multiple Vitamins 1 tab PO DAILY #30 tabs 08/10/22 02/27/23 tablet) atorvastatin 80 mg tablet 80 mg PO DAILY 11/18/22 02/27/23 empagliflozin 10 mg tablet 10 mg PO DAILY 11/18/22 02/27/23 (Jardiance) gabapentin 300 mg capsule 900 mg feeding tube TID 11/18/22 02/27/23 insulin glargine 100 unit/mL 10 unit subcut QPM 11/18/22 02/27/23 subcutaneous solution (Lantus U-100 Insulin) melatonin 3 mg capsule 9 mg PO HS PRN 11/18/22 02/27/23 metoprolol succinate 50 mg 50 mg PO DAILY 11/18/22 02/27/23 tablet,extended release 24 hr quetiapine 100 mg tablet 100 mg PO QHS 11/18/22 02/27/23 sacubitril 24 mg-valsartan 26 mg 1 tab feeding tube DAILY 11/18/22 02/27/23 tablet (Entresto) spironolactone 25 mg tablet 12.5 mg PO DAILY 11/18/22 02/27/23 valproic acid (as sodium salt) 250 300 mg PO TID 11/18/22 02/27/23 mg/5 mL oral solution bupropion HCl 100 mg tablet 300 mg PO DAILY 12/16/22 02/27/23 protein pwd PO 12/16/22 02/15/23 acetaminophen 500 mg/15 mL oral 1,000 mg (30 mL) PO Q8H PRN #237 mL 01/19/23 02/27/23 liquid aspirin 81 mg chewable tablet 81 mg PO BID #60 tabs 01/19/23 02/27/23 (Aspirin Childrens) ferrous sulfate 300 mg (60 mg mg .QOD 01/31/23 02/15/23 iron)/5 mL oral liquid esomeprazole magnesium 40 mg 40 mg NG BID@729,1999 #0 ea 02/02/23 02/27/23 granules delayed release for susp ibuprofen 100 mg/5 mL oral 600 mg (30 mL) PO Q8H #473 mL 02/15/23 02/15/23 suspension amoxicillin 250 mg-potassium 20 ml feeding tube BID #100 mL 02/28/23 clavulanate 62.5 mg/5 mL oral suspension (Augmentin) guaifenesin 200 mg/5 mL oral liquid 400 mg (10 mL) feeding tube Q6H 02/28/23 PRN cough #118 mL insulin NPH isoph U-100 human 100 See Rx Instructions .Route 02/28/23 02/27/23 unit/mL (3 mL) subcutaneous pen .COMPLEX #0 mL (Humulin N NPH U-100 Insulin KwikPen) metoprolol tartrate 25 mg tablet 25 mg NG BID #60 tabs 02/28/23 Previous Rx's Medication Instructions Recorded folic acid 1 mg tablet 1 mg PO DAILY #0 tabs 08/10/22 multivitamin (Multiple Vitamins 1 tab PO DAILY #30 tabs 08/10/22 tablet) acetaminophen 500 mg/15 mL oral 1,000 mg (30 mL) PO Q8H PRN #237 mL 01/19/23 liquid aspirin 81 mg chewable tablet 81 mg PO BID #60 tabs 01/19/23 (Aspirin Childrens) esomeprazole magnesium 40 mg 40 mg NG BID@ #0 ea 02/02/23 granules delayed release for susp ibuprofen 100 mg/5 mL oral 600 mg (30 mL) PO Q8H #473 mL 02/15/23 suspension amoxicillin 250 mg-potassium 20 ml feeding tube BID #100 mL 02/28/23 clavulanate 62.5 mg/5 mL oral suspension (Augmentin) guaifenesin 200 mg/5 mL oral liquid 400 mg (10 mL) feeding tube Q6H 02/28/23 PRN cough #118 mL insulin NPH isoph U-100 human 100 See Rx Instructions .Route 02/28/23 unit/mL (3 mL) subcutaneous pen .COMPLEX #0 mL (Humulin N NPH U-100 Insulin KwikPen) metoprolol tartrate 25 mg tablet 25 mg NG BID #60 tabs 02/28/23 Allergies Allergy/AdvReac Type Severity Reaction Status Date / Time metformin Allergy Unknown Verified 02/26/23 22:35 meperidine AdvReac gi upset Verified 02/26/23 22:35 General Stated Complaint: GenMedical ASHANTI: 4 Review of Systems Constitutional Constitutional: Denies chills and Denies fever(s) Gastrointestinal Gastrointestinal: Denies abdominal pain PFSH All Active Problems Irritation around percutaneous endoscopic gastrostomy (PEG) tube site (Acute) PEG tube malfunction (Acute) Lab test positive for detection of COVID-19 virus (Acute) PEG (percutaneous endoscopic gastrostomy) status (Chronic) Esophageal stricture (Acute) Chronic systolic (congestive) heart failure (Chronic) 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) Aspiration pneumonia (Acute) Acute respiratory failure with hypoxia (Acute) COVID (Acute) 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 (Acute) s/p Hardware Removal and KYUNG (01-19-23) Depression (Chronic) Bipolar 1 disorder (Acute) Diabetes (Chronic) Cholelithiasis (Chronic) Ventral hernia (Acute) Leukocytosis (Acute) Pleural effusion (Acute) Black tarry stools (Acute) Chronic diarrhea (Acute) Farrell's esophagus (Chronic) Esophageal ulcer with bleeding (Acute) Erosive esophagitis (Acute) Farrell's 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 (Acute) Hyperplastic colon polyp (Acute ~06/10/21) Tubular adenoma (Acute ~06/10/21) Neuroleptic induced parkinsonism (Acute) Drug-induced parkinsonism (Acute) Anemia (Chronic) Status post hip surgery (Acute) H/O: pneumonia (Acute) Abnormal chest xray (Acute) Pre-op evaluation (Acute) Medical History Stress-induced cardiomyopathy acute onset [place] [facility] [place] pressors, EF 25%, has since recovered RH NSTEMI (non-ST elevated myocardial infarction) Per pt. states she did not have a heart attack Acute cardiogenic pulmonary edema Acute metabolic encephalopathy Bilateral pneumonia Hypokalemia Closed fracture of neck of left femur s/p Percutaneous Screw Fixation 08/09/22 Constipation Diabetes mellitus type 2 in obese Chronic iron deficiency anemia ETOH abuse Poorly controlled diabetes mellitus Chronic pancreatitis due to acute alcohol intoxication Alcohol abuse Per pt. states she has never had an issues with any subtances History of pilonidal cyst Anxiety Surgical History History of total left hip arthroplasty (01/19/23) S/P laparoscopic procedure cyst removed from stomach per patient S/P surgical removal of pilonidal cyst History of esophagogastroduodenoscopy (EGD) (~06/10/21) History of colonoscopy with polypectomy (~06/10/21) History of hysterectomy History of tonsillectomy History of section Family History Father Hypertension Diabetes Heart disease Social History Smoking/Tobacco Use Status: Former Tobacco Use Quit Date: 02/07/21 Smoking risk assessment performed?: Yes Alcohol Intake: never Drug use: Never Substance use type: does not use Details: pt. 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 What is your relationship status?: Panel score (0-1 are the most socially isolated patients): 1 Additional Social history: Unable to assess privately as spouse Rogelio in the room ERI Abrams 03/13/23 Exam Const General: cooperative, no acute distress and not ill appearing Orientation: alert and awake HENMT Mouth: moist mucous membranes Resp Effort & Inspection: normal respiratory effort, able to speak in complete sentences and no respiratory distress GI Inspection: other (In place PEG tube with some irritation noted) Palpation: soft and nontender Neuro General: patient alert, patient awake and moves all extremities Course Vital Signs Vital signs: Vital Signs Temperature 36.6 C 03/13/23 08:43 Pulse 66 03/13/23 08:43 Respiratory Rate 16 03/13/23 08:43 Blood Pressure 152/54 H 03/13/23 08:43 Pulse Oximetry 97 03/13/23 08:43 Temperature 36.6 C 03/13/23 08:43 Pulse 66 03/13/23 08:43 Respiratory Rate 16 03/13/23 08:43 Respiratory Effort Normal, Non-Labored 03/13/23 09:07 Blood Pressure 152/54 H 03/13/23 08:43 Pulse Oximetry 97 03/13/23 08:43 Oxygen Delivery Method Room Air 03/13/23 08:43 Oxygen Flow Rate 0 03/13/23 08:43
--- NOTE | 2023-03-13 13:53 | SCONE_ITS ---
Date of service: 03/13/23 Time of Service: 13:53 Assessment and Plan Assessment and plan (1) PEG tube malfunction: Status: Acute Assessment and plan: I was able to unclog the PEG tube. Recommend putting in half of the crushed medicine and then flushing with 60 cc of sterile water and then placing the rest of the crushed medicine through the tube and flushing with another 60 cc of water. If patient has any difficulty during the week during business hours she can call her office and we could see her there so she does not have to go to the emergency department. History of Present Illness Narrative: Mrs Irving is a pleasant 62-year-old female with esophageal stenosis who has a gastric tube in place for medications and feedings. Her gave her medicine through the G-tube last night and then was unable to feed her this morning. He brought her into the emergency department. She was seen and they tried flushing the tube with Coca-Cola and other products without being able to dislodge the medicine. I was asked to see the patient for exchange of PEG tube. Patient has not been vomiting. She has no abdominal pain. 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) Aspiration pneumonia (Acute) Acute respiratory failure with hypoxia (Acute) COVID (Acute) 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 (Acute) s/p Hardware Removal and KYUNG (01-19-23) Depression (Chronic) Bipolar 1 disorder (Acute) Diabetes (Chronic) Cholelithiasis (Chronic) Ventral hernia (Acute) Leukocytosis (Acute) Pleural effusion (Acute) Black tarry stools (Acute) Chronic diarrhea (Acute) Farrell's esophagus (Chronic) Esophageal ulcer with bleeding (Acute) Erosive esophagitis (Acute) Farrell's 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 (Acute) Hyperplastic colon polyp (Acute ~06/10/21) Tubular adenoma (Acute ~06/10/21) Neuroleptic induced parkinsonism (Acute) Drug-induced parkinsonism (Acute) Anemia (Chronic) Status post hip surgery (Acute) H/O: pneumonia (Acute) Abnormal chest xray (Acute) Pre-op evaluation (Acute) Medical History Acute cardiogenic pulmonary edema Acute metabolic encephalopathy Acute respiratory failure with hypoxia Alcohol abuse Per pt. states she has never had an issues with any subtances Anxiety Bilateral pneumonia Chronic iron deficiency anemia Chronic pancreatitis due to acute alcohol intoxication Closed fracture of neck of left femur s/p Percutaneous Screw Fixation 08/09/22 Constipation Diabetes mellitus type 2 in obese ETOH abuse History of pilonidal cyst Hypokalemia NSTEMI (non-ST elevated myocardial infarction) Per pt. states she did not have a heart attack Poorly controlled diabetes mellitus Stress-induced cardiomyopathy acute onset managed at [facility] [place] 08/30 pressors, EF 25%, has since recovered RH Surgical History History of section History of colonoscopy with polypectomy (~06/10/21) History of esophagogastroduodenoscopy (EGD) (~06/10/21) History of hysterectomy History of tonsillectomy S/P laparoscopic procedure cyst removed from stomach per patient S/P surgical removal of pilonidal cyst Family History Father Hypertension Diabetes Heart disease Social History Smoking/Tobacco Use Status: Former Tobacco Use Quit Date: 02/07/21 Smoking risk assessment performed?: Yes Alcohol Intake: never Drug use: Never Substance use type: does not use Details: pt. 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 I used a brush head to try and get the medication to pass without success. I then deflated the balloon on the G-tube and removed it. I placed a 16 Yoruba Mcrae into the pathway without resistance. I could see a column of question of medication at the end of the G-tube. I hemostat was used to crush the medicine a little bit more within the tube and I was then able to eventually flush the medicine out. The Mcrae was then removed and the G-tube was placed back into the stomach without resistance. The balloon was insufflated with water. I was able to flush the tube with 60 cc of water. There was no resistance. The skin around the G-tube was quite irritated. Zinc oxide cream was applied as a barrier. A drain sponge was then placed around the tube and it was secured. Results Last Vital Signs Temp 97.9 F 03/13/23 08:43 Pulse 66 03/13/23 08:43 Resp 16 03/13/23 08:43 BP 152/54 H 03/13/23 08:43 Pulse Ox 97 03/13/23 08:43
== END 2023-03-13 14:05 | disposition home or self-care (01) ==
PROVIDERS: Emergency Provider Nurse Practitioner Family; PCP Nurse Practitioner Family
DX: K94.23 Gastrostomy malfunction (principal); I25.2 Old myocardial infarction; E11.9 Type 2 diabetes mellitus without complications; Z79.4 Long term (current) use of insulin; Z79.82 Long term (current) use of aspirin
CPT/HCPCS: 99283

== ENCOUNTER → 2023-03-15 00:47 | Outpatient (CLI) | payer MEDICAID, SELFPAY ==
--- NOTE | 2022-12-17 | DI.DEXA_ITS ---
Exam(s) XR DEXA BONE DENSITY W/WO RASHAD EXAM: XR DEXA BONE DENSITY W/WO RASHAD CLINICAL HISTORY: GERD, BARRETTS ESOPHAGEAL ULCERATION, MONITORING OF CHRONIC THEREUTIC MED TECHNIQUE: COMPARISON: No exams were available for comparison FINDINGS: Lateral Spine Image: Unremarkable. No compression deformities identified. Right hip: Total T-Score: -3.1 Total Z-Score: -2.0 T- and Z-scores: Findings are consistent with osteoporosis. Lumbar Spine: Total T-Score: -2.3 Total Z-Score: -0.7 T- and Z-scores: Findings are consistent with osteopenia. IMPRESSION: Osteoporosis in the right hip.
--- NOTE | 2022-12-17 | DI.RAD_ITS ---
Exam(s) XR CHEST 2V PA LATERAL EXAM: XR CHEST 2V PA LATERAL CLINICAL HISTORY: NOCTURNAL HYPOXIA, G47.34, RESPIRATORY CRACKLES, R09.89 TECHNIQUE: 2D digital imaging was performed of the chest. Two images were obtained. PA and lateral views were obtained. COMPARISON: CR XR CHEST 2V PA LATERAL from 07/17/2021 CR,XR XR PORTABLE CHEST AP from 08/14/2022 CR,XR XR PORTABLE CHEST AP from 08/14/2022 FINDINGS: MEDIASTINUM: Normal. HEART: Normal. PULMONARY VASCULATURE: Normal. LUNGS: There is linear scarring or atelectasis in the left lung base. No focal consolidating infiltr ates are present. PLEURAL SPACE: No pleural effusion or pneumothorax. BONE:Within normal limits for the patient's age. OTHER FINDINGS:Normal. IMPRESSION: No acute pulmonary findings. DATA REPOSITORY: RADIATION DOSE DELIVERED:
== END ==
PROVIDERS: PCP Nurse Practitioner Family; Visit Provider Nurse Practitioner Family
DX: Z13.820 Encounter for screening for osteoporosis (principal); M81.0 Age-related osteoporosis without current pathological fracture; R09.89 Other specified symptoms and signs involving the circulatory and respiratory systems; G47.34 Idiopathic sleep related nonobstructive alveolar hypoventilation
CPT/HCPCS: 77080; 71046

== ENCOUNTER 2023-03-31 19:11 | Outpatient (REF) | payer MEDICAID, SELFPAY ==
[2023-03-31 20:56] LABS: Bilirubin Negative (Negative); Blood Negative (Negative); Clarity Clear (Clear); Glucose >=1000 mg/dL (Negative); Ketones Negative (Negative); Leukocyte Esterase Negative (Negative); Nitrite Negative (Negative); Specific Gravity 1.015 (1.005-1.025); Urobilinogen 0.2 mg/dL (Up to 0.2)
== END 2023-03-31 19:12 | disposition home or self-care (01) ==
LOC: NCHCN 19:11
PROVIDERS: PCP Nurse Practitioner Family; Visit Provider Nurse Practitioner Family
DX: Z87.448 Personal history of other diseases of urinary system (principal)
CPT/HCPCS: 81003

== ENCOUNTER 2023-04-04 19:33 | Emergency (ER) | payer MEDICAID, SELFPAY ==
[2023-04-04 19:37] VITALS: BP 154/40; PULSE 68; RESP 18; TEMP 36.2; O2SAT 97
--- NOTE | 2023-04-04 20:27 | ED.GENADUL_ITS ---
Discharge Plan Disposition Patient Disposition: Home Condition: Stable Discharge Details Clinical Impression: Gastrostomy tube obstruction Primary Care Provider: Ana Gillespie ED Provider: Shalini García Home Meds and New Rx's Prescriptions: Continued bupropion HCl 100 mg tablet 300 mg PO DAILY Patient Comments: via g-tube, per pcp ov notes 12/09/22 RH protein Powder See Rx Instructions PO .COMPLEX Rx Instructions: 2 scoops daily gabapentin 300 mg capsule 900 mg feeding tube TID Patient Comments: via g-tube Entresto 24-26 mg tablet 1 tab feeding tube DAILY Patient Comments: via g-tube Jardiance 10 mg tablet 10 mg PO DAILY insulin glargine [Lantus U-100 Insulin] 100 unit/mL solution 10 unit subcut QPM quetiapine 100 mg tablet 100 mg PO QHS atorvastatin 80 mg tablet 80 mg PO DAILY valproic acid (as sodium salt) 250 mg/5 mL solution 300 mg PO TID Rx Instructions: 6mls TID metoprolol succinate 50 mg tablet extended release 24 hr 50 mg PO BID melatonin 3 mg capsule 9 mg PO HS PRN Patient Comments: via g-tube sucralfate 1 gram tablet 1 g PO QID Patient Comments: TAKE ONE TABLET BY MOUTH FOUR TIMES A DAY folic acid 1 mg Tablet 1 mg PO DAILY Qty: 0 0RF multivitamin [Multiple Vitamins] Tablet 1 tab PO DAILY Qty: 30 0RF ferrous sulfate 300 mg (60 mg iron)/5 mL liquid 300 mg .QOD Patient Comments: TAKE 5ML VIA G-TUBE EVERY OTHER DAY esomeprazole magnesium [address] For Susp In Packet 40 mg NG BID@0730,1999 Qty: 0 0RF Humulin N NPH Insulin KwikPen 100 unit/mL (3 mL) insulin pen See Rx Instructions .ROUTE .COMPLEX Qty: 0 0RF Rx Instructions: 20 units at 11 am followed by sliding scale at 3 pm (5 units for blood sugar of 250 plus 1 additional unit for any 20 points that the blood sugar is above 250) ibuprofen 100 mg/5 mL suspension 600 mg PO Q8H PRN acetaminophen 500 mg/15 mL liquid 1,000 mg PO Q8H PRNQty: 237 2RF Discharge Instructions Instructions: PEG Tube Insertion (DC) Additional Instructions: Please ensure that you crushed your medications well before inserting them into the feeding tube and also flush copious amounts of fluid after instilling any medications to ensure that the tube remains open. Please see your outpatient surgery team for G-tube reinsertion. Referrals: Ana Gillespie [Primary Care Provider] - (As needed) Medical Decision Making Attempted to flush G-tube with warm water and [employer] with no effect. Case is discussed with Dr. Ricardo Monge who removed tube to unclog it and then reinserted it, flushes well. Unfortunately the balloon will not stay inflated and G-tube was again removed and replaced with a 16 Faroese Mcrae catheter. Tube placement verified by x-ray with Gastrografin. She will be advised to follow-up with her outpatient surgical team Medical Records Medical records reviewed: Yes I reviewed the patient's medical records. HPI General Mode of arrival: ambulatory . Date/Time Provider Initiated Documentation: 04/04/23 19:39 . Limitations to Documentation: no limitations . Information obtained by: patient . HPI Narrative: This is a 62-year-old female patient with significant past medical history including diabetes mellitus type 2 esophageal stricture with G-tube erosive esophagitis Parkinson's bipolar type I who presents to the emergency with an occluded J-tube which has been recurrent. She does crush medications to put through the tube and has had previous occlusions secondary to doing so. Tube was flushing tonight well until after the medications instilled and then stopped functioning. They tried aspirating and flushing with no effect. She has no other complaints. She is able to take fluids and pudding by mouth but is unwilling to crush any meds or take medications orally. She has no abdominal pain and no other complaints Related Data Home Medications Medication Instructions Recorded Confirmed sucralfate 1 gram tablet 1 g PO QID 08/08/22 04/04/23 folic acid 1 mg tablet 1 mg PO DAILY #0 tabs 08/10/22 04/04/23 multivitamin (Multiple Vitamins 1 tab PO DAILY #30 tabs 08/10/22 04/04/23 tablet) atorvastatin 80 mg tablet 80 mg PO DAILY 11/18/22 04/04/23 empagliflozin 10 mg tablet 10 mg PO DAILY 11/18/22 04/04/23 (Jardiance) gabapentin 300 mg capsule 900 mg feeding tube TID 11/18/22 04/04/23 insulin glargine 100 unit/mL 10 unit subcut QPM 11/18/22 04/04/23 subcutaneous solution (Lantus U-100 Insulin) melatonin 3 mg capsule 9 mg PO HS PRN 11/18/22 04/04/23 metoprolol succinate 50 mg 50 mg PO BID 11/18/22 04/04/23 tablet,extended release 24 hr quetiapine 100 mg tablet 100 mg PO QHS 11/18/22 04/04/23 sacubitril 24 mg-valsartan 26 mg 1 tab feeding tube DAILY 11/18/22 04/04/23 tablet (Entresto) valproic acid (as sodium salt) 250 300 mg PO TID 11/18/22 04/04/23 mg/5 mL oral solution bupropion HCl 100 mg tablet 300 mg PO DAILY 12/16/22 04/04/23 protein See Rx Instructions PO .COMPLEX 12/16/22 04/04/23 acetaminophen 500 mg/15 mL oral 1,000 mg (30 mL) PO Q8H PRN #237 mL 01/19/23 04/04/23 liquid ferrous sulfate 300 mg (60 mg 300 mg .QOD 01/31/23 03/27/23 iron)/5 mL oral liquid esomeprazole magnesium 40 mg 40 mg NG BID@ #0 ea 02/02/23 04/04/23 granules delayed release for susp insulin NPH isoph U-100 human 100 See Rx Instructions .Route 02/28/23 04/04/23 unit/mL (3 mL) subcutaneous pen .COMPLEX #0 mL (Humulin N NPH U-100 Insulin KwikPen) ibuprofen 100 mg/5 mL oral 600 mg PO Q8H PRN 04/04/23 04/04/23 suspension Previous Rx's Medication Instructions Recorded folic acid 1 mg tablet 1 mg PO DAILY #0 tabs 08/10/22 multivitamin (Multiple Vitamins 1 tab PO DAILY #30 tabs 08/10/22 tablet) acetaminophen 500 mg/15 mL oral 1,000 mg (30 mL) PO Q8H PRN #237 mL 01/19/23 liquid esomeprazole magnesium 40 mg 40 mg NG BID@30,1999 #0 ea 02/02/23 granules delayed release for susp insulin NPH isoph U-100 human 100 See Rx Instructions .Route 02/28/23 unit/mL (3 mL) subcutaneous pen .COMPLEX #0 mL (Humulin N NPH U-100 Insulin KwikPen) Allergies Allergy/AdvReac Type Severity Reaction Status Date / Time metformin Allergy Unknown Verified 04/04/23 20:10 meperidine AdvReac gi upset Verified 04/04/23 20:10 General Stated Complaint: Abd Prob ASHANTI: 3 Review of Systems All systems reviewed & are unremarkable except as noted in HPI and below PFSH All Active Problems (Updated 04/04/23 @ 20:31 by Shalini García NP) Gastrostomy tube obstruction (Acute) Irritation around percutaneous endoscopic gastrostomy (PEG) tube site (Acute) PEG tube malfunction (Acute) Lab test positive for detection of COVID-19 virus (Acute) PEG (percutaneous endoscopic gastrostomy) status (Chronic) Esophageal stricture (Acute) Chronic systolic (congestive) heart failure (Chronic) 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) Aspiration pneumonia (Acute) Acute respiratory failure with hypoxia (Acute) COVID (Acute) Depression (Chronic) Bipolar 1 disorder (Acute) Diabetes (Chronic) Cholelithiasis (Chronic) Ventral hernia (Acute) Leukocytosis (Acute) Pleural effusion (Acute) Black tarry stools (Acute) Chronic diarrhea (Acute) Farrell's esophagus (Chronic) Esophageal ulcer with bleeding (Acute) Erosive esophagitis (Acute) Farrell's 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 (Acute) Hyperplastic colon polyp (Acute ~06/10/21) Tubular adenoma (Acute ~06/10/21) Neuroleptic induced parkinsonism (Acute) Drug-induced parkinsonism (Acute) Anemia (Chronic) Status post hip surgery (Acute) H/O: pneumonia (Acute) Abnormal chest xray (Acute) Pre-op evaluation (Acute) Medical History Stress-induced cardiomyopathy acute onset managed at [facility] 08/30 pressors, EF 25%, has since recovered RH NSTEMI (non-ST elevated myocardial infarction) Per pt. states she did not have a heart attack Acute cardiogenic pulmonary edema Acute metabolic encephalopathy Bilateral pneumonia Hypokalemia Closed fracture of neck of left femur s/p Percutaneous Screw Fixation 08/09/22 Constipation Diabetes mellitus type 2 in obese Chronic iron deficiency anemia ETOH abuse Poorly controlled diabetes mellitus Chronic pancreatitis due to acute alcohol intoxication Alcohol abuse Per pt. states she has never had an issues with any subtances History of pilonidal cyst Anxiety Surgical History History of total left hip arthroplasty (01/19/23) S/P laparoscopic procedure cyst removed from stomach per patient S/P surgical removal of pilonidal cyst History of esophagogastroduodenoscopy (EGD) (~06/10/21) History of colonoscopy with polypectomy (~06/10/21) History of hysterectomy History of tonsillectomy History of section Family History Father Hypertension Diabetes Heart disease Social History Smoking/Tobacco Use Status: Never Smoking risk assessment performed?: Yes Alcohol Intake: never Drug use: Never Substance use type: does not use Household members: spouse Housing: house Number of Children: 2 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 Unable to flush or aspirate from G-tube. Course Vital Signs Vital signs: Vital Signs Temperature 36.2 C L 04/04/23 19:37 Pulse 68 04/04/23 19:37 Respiratory Rate 18 04/04/23 19:37 Blood Pressure 154/40 H 04/04/23 19:37 Pulse Oximetry 97 04/04/23 19:37 Temperature 36.2 C L 04/04/23 19:37 Pulse 68 04/04/23 19:37 Respiratory Rate 18 04/04/23 19:37 Respiratory Effort Normal 04/04/23 19:40 Blood Pressure 154/40 H 04/04/23 19:37 Pulse Oximetry 97 04/04/23 19:37 Oxygen Delivery Method Room Air 04/04/23 19:37 Oxygen Flow Rate 0 04/04/23 19:37 Pain Level 0 04/04/23 19:37
--- NOTE | 2023-04-04 20:30 | DI.RAD_ITS ---
Exam(s) XR ABDOMEN FLAT PLATE EXAM: XR ABDOMEN FLAT PLATE CLINICAL HISTORY: g tube placement. TECHNIQUE: 2D digital imaging was performed. COMPARISON: CR,XR XR ABDOMEN FLAT PLATE from 09/27/2022 FINDINGS: Single AP view of the abdomen Contrast has been introduced through the indwelling gastrostomy tube and this contrast is intralumina l within the stomach and duodenum. There is no extra luminal extravasation of contrast evident on th is image. IMPRESSION: As above DATA REPOSITORY: RADIATION DOSE DELIVERED:
--- NOTE | 2023-04-04 21:25 | DI.VRAD_ITS ---
PROCEDURE INFORMATION: Exam: XR Abdomen Exam date and time: 04/04/2023 9:06 PM Age: 62 years old Clinical indication: Device placement; Gi device; Prior surgery; Surgery date: 6+ months; Surgery type: G tube placed; Patient HX: G tube placement TECHNIQUE: Imaging protocol: Radiologic exam of the abdomen. Views: Frontal supine view of the abdomen. 1 View. Other contrast: g tube 30 ml of gastrografin; COMPARISON: CT CHEST PE ABD PELVIS W 01/31/2023 10:04 PM FINDINGS: Gastrointestinal tract: Injection G-tube demonstrates introduction of contrast into the lumen of the nondilated stomach. No extravasation of contrast to indicate leak. Unremarkable nonobstructive bowel gas pattern. Bones/joints: Left hip prosthesis. IMPRESSION: Injection G-tube demonstrates introduction of contrast into the lumen of the nondilated stomach. No extravasation of contrast to indicate leak. Dictated and Authenticated by: Tu Gastelum MD. Ordering:LUCIA Loya MD
[2023-04-05 02:47] VITALS: BP 152/46; PULSE 64; RESP 18; O2SAT 98
== END 2023-04-05 02:47 | disposition home or self-care (01) ==
PROVIDERS: Emergency Provider Nurse Practitioner Acute Care; PCP Nurse Practitioner Family
DX: K94.23 Gastrostomy malfunction (principal); G20.C Parkinsonism, unspecified; E11.9 Type 2 diabetes mellitus without complications; Z79.4 Long term (current) use of insulin; K22.2 Esophageal obstruction; F31.9 Bipolar disorder, unspecified; Z93.1 Gastrostomy status
CPT/HCPCS: 43762; 99283; 74018

== ENCOUNTER → 2023-04-23 00:15 | Outpatient (CLI) | payer MEDICAID, SELFPAY ==
--- NOTE | 2023-04-23 11:30 | DI.MAMMO_ITS ---
Exam(s) MAMMO SCREENING EXAM: MAMMO SCREENING CLINICAL HISTORY: SCREENING Z12.39 TECHNIQUE: Mammograms were interpreted according to the usual protocol including computer analysis w [employer] CAD system, tomosynthesis and C-view imaging. COMPARISON: FINDINGS: The breasts are composed of heterogeneously dense fibroglandular densities, Breast Density category C . No suspicious masses or suspicious microcalcifications are seen. Stable nodular densities in both br easts, left greater than right. Benign calcifications upper outer quadrant left breast. No skin thickening or abnormal axillary lymph nodes are seen. There has been no significant change from prior exams. IMPRESSION: BI-RADS Category 2 - Negative Mammogram with benign findings. Yearly screening mammography is recom mended. Breast Density Category C, heterogeneously Dense. The mammogram demonstrates the patient's breast tissue is dense. Dense breast tissue is very common a nd is not abnormal but dense breast tissue can make it harder to find cancer on a mammogram. Also, de nse breast tissue may increase breast cancer risk. This information about the result of the mammogram report was provided to the patient to raise their awareness. Use this report when you speak with the patient about their risks for breast cancer, which includes their family history. At that time, you may recommend additional screening tests (Ultrasound or MRI) as they might be useful based on their r isk. A negative radiographic report should not delay biopsy if a dominant or clinically suspicious mass is present. Up to ten percent of cancers are not identified on mammography. A negative report may reinforce clinical impression. Adenosis and dense breasts may obscure an underlying neoplasm. False positive reports average 6 to 10%.
== END ==
PROVIDERS: PCP Nurse Practitioner Family; Visit Provider Nurse Practitioner Family
DX: Z12.31 Encounter for screening mammogram for malignant neoplasm of breast (principal)
CPT/HCPCS: 77063; 77067

== ENCOUNTER 2023-05-03 01:45 | Inpatient (IN) | payer MEDICAID, SELFPAY ==
[2023-05-03] VITALS (85 sets, daily range): BP systolic 80–152; BP diastolic 20–98; PULSE 49–225; RESP 10–29; TEMP 36–38.3; O2SAT 88–100
--- NOTE | 2023-05-03 01:45 | DI.RAD_ITS ---
Exam(s) XR PORTABLE CHEST AP EXAM: XR PORTABLE CHEST AP CLINICAL HISTORY: hypoxic and rhonchorous breath sounds. TECHNIQUE: 2D digital imaging was performed. COMPARISON: CR,XR XR PORTABLE CHEST AP from 02/26/2023 FINDINGS: Single AP portable view. Heart size is upper normal. The mediastinum is not widened. There is infiltrate in lower half of both lung howard. No pleural effusions. No pneumothorax. IMPRESSION: Bilateral infiltrates. No obvious pleural effusions. DATA REPOSITORY: RADIATION DOSE DELIVERED:
--- NOTE | 2023-05-03 01:52 | ED.GENADUL_ITS ---
Discharge Plan Disposition Patient Disposition: Admit to [facility] Condition: Good Discharge Details Clinical Impression: Aspiration pneumonia, Pneumonitis Primary Care Provider: Ana Gillespie ED Provider: Ismael Eason Home Meds and New Rx's Prescriptions: No Action bupropion HCl 100 mg tablet 300 mg PO DAILY Patient Comments: via g-tube, per pcp ov notes 12/09/22 RH protein Powder See Rx Instructions PO .COMPLEX Rx Instructions: 2 scoops daily gabapentin 300 mg capsule 900 mg feeding tube TID Patient Comments: via g-tube Entresto 24-26 mg tablet 1 tab feeding tube DAILY Patient Comments: via g-tube Jardiance 10 mg tablet 10 mg PO DAILY insulin glargine [Lantus U-100 Insulin] 100 unit/mL solution 10 unit subcut QPM quetiapine 100 mg tablet 100 mg PO QHS atorvastatin 80 mg tablet 80 mg PO DAILY valproic acid (as sodium salt) 250 mg/5 mL solution 300 mg PO TID Rx Instructions: 6mls TID metoprolol succinate 50 mg tablet extended release 24 hr 50 mg PO BID melatonin 3 mg capsule 9 mg PO HS PRN Patient Comments: via g-tube sucralfate 1 gram tablet 1 g PO QID Patient Comments: TAKE ONE TABLET BY MOUTH FOUR TIMES A DAY folic acid 1 mg Tablet 1 mg PO DAILY Qty: 0 0RF multivitamin [Multiple Vitamins] Tablet 1 tab PO DAILY Qty: 30 0RF ferrous sulfate 300 mg (60 mg iron)/5 mL liquid 300 mg feeding tube .QOD Patient Comments: TAKE 5ML VIA G-TUBE EVERY OTHER DAY esomeprazole magnesium [address] For Susp In Packet 40 mg NG BID@ Qty: 0 0RF Humulin N NPH Insulin KwikPen 100 unit/mL (3 mL) insulin pen See Rx Instructions .ROUTE .COMPLEX Qty: 0 0RF Rx Instructions: 20 units at 11 am followed by sliding scale at 3 pm (5 units for blood sugar of 250 plus 1 additional unit for any 20 points that the blood sugar is above 250) ibuprofen 100 mg/5 mL suspension 600 mg PO Q8H PRN acetaminophen 500 mg/15 mL liquid 1,000 mg PO Q8H PRNQty: 237 2RF aspirin 81 mg tablet,chewable 81 mg feeding tube DAILY Patient Comments: CHEW ONE TABLET TWICE A DAY VIA G-TUBE divalproex 250 mg tablet extended release 24 hr 250 mg PO DAILY Patient Comments: TAKE ONE TABLET BY MOUTH EVERY DAY DIRECTED nystatin 100,000 unit/gram powder 1 applic TOPICAL ONCE PRN Patient Comments: APPLY TO BUTTOCKS THREE TIMES A DAY NEEDED pantoprazole [address] for susp in packet 40 mg G-tube DAILY Patient Comments: Take 1 packet via g-tube twice a day Administer in 10 mL of apple juice via g-tub, then follow with another 10 mL. Medical Decision Making This is a 62-year-old female with a past medical history of an esophageal stricture severe enough that she has a PEG tube for eating, type 2 diabetes, GERD, Farrell's esophagus, bipolar disorder, stress-induced cardiomyopathy, previous NSTEMI, hysterectomy, tonsillectomy, who presents today for evaluation of shortness of breath. 3 days ago on Wednesday the patient was at [facility] where she had EGD and procedure ligation for peptic stricture dilatation. No complications at that time. She states that yesterday she started to have a mild cough, and then tonight on /early morning she began to get very short of breath. She is on 2 L at baseline, upon EMS arrival patient was noted to be in the 70s on 2 L. She received a DuoNeb and was increased to 6 L. She then came up to the mid 90s. She was brought into the ER for further assessment. She denies fever or chills. She denies chest pain. Quite ironically, I saw the patient myself 2 to 3 months ago where she was post EGD by about 24 to 48 hours, and she had notable aspiration pneumonia at that time which required admission and antibiotics. Exam demonstrates rhonchorous breath sounds, on 6 L the patient oxygenation status is stable. Concern for aspiration pneumonia. Will get x-ray, monitor closely and reassess. We will give Solu-Medrol and an additional DuoNeb here. 5 AM Chest x-ray shows notable right-sided infiltrate. She has no white count. Lactate slightly elevated at 1.5. However there is still concern for pneumonitis versus aspiration pneumonia. proBNP is only 485, she has no peripheral edema on exam. Symptoms do not appear consistent with CHF overload at this time. Symptoms do not appear consistent with PE. Pending formal chest x-ray read. Unasyn was started for potential antibacterial coverage. Patient was started on BiPAP and she is tolerating this well. Oxygenation stable. Discussed the case with the hospitalist , he agrees with the assessment and plan. I have extensively reviewed the treatment plan with the patient. I have addressed all patient concerns at this time. I have also discussed the plan with the admitting physician and they agree with the current assessment and plan and have agreed to assume responsibility for the patient. All parties demonstrate verbal understanding and agreement with our assessment and plan at this time. Th e documentation in this chart was dictated using [employer] dictation software. Please excuse any dictation errors. FINDINGS: Lungs: Infiltrates in both mid to lower lungs. Pleural spaces: Questionable small left pleural effusion. Heart/Mediastinum: No cardiomegaly. Bones/joints: Grossly unremarkable. IMPRESSION: 1. Bilateral pulmonary infiltrates suspicious for pneumonia. There could be a component of edema as well. 2. Possible left pleural effusion. Thank you for allowing us to participate in the care of your patient. Dictated and Authenticated by: Laila Gomez MD 05/03/2023 5:20 AM Eastern Time ([place] & [place]) HPI General Date/Time Provider Initiated Documentation: 05/03/23 01:51 . HPI Narrative: This is a 62-year-old female with a past medical history of an esophageal stricture severe enough that she has a PEG tube for eating, type 2 diabetes, GERD, Farrell's esophagus, bipolar disorder, stress-induced cardiomyopathy, previous NSTEMI, hysterectomy, tonsillectomy, who presents today for evaluation of shortness of breath. 3 days ago on Wednesday the patient was at [facility] where she had EGD and procedure ligation for peptic stricture dilatation. No complications at that time. She states that yesterday she started to have a mild cough, and then tonight on [place]/early Erich morning she began to get very short of breath. She is on 2 L at baseline, upon EMS arrival patient was noted to be in the 70s on 2 L. She received a DuoNeb and was increased to 6 L. She then came up to the mid 90s. She was brought into the ER for further assessment. She denies fever or chills. She denies chest pain. Quite ironically, I saw the patient myself 2 to 3 months ago where she was post EGD by about 24 to 48 hours, and she had notable aspiration pneumonia at that time which required admission and antibiotics. Related Data Home Medications Medication Instructions Recorded Confirmed sucralfate 1 gram tablet 1 g PO QID 08/08/22 05/03/23 folic acid 1 mg tablet 1 mg PO DAILY #0 tabs 08/10/22 05/03/23 multivitamin (Multiple Vitamins 1 tab PO DAILY #30 tabs 08/10/22 05/03/23 tablet) atorvastatin 80 mg tablet 80 mg PO DAILY 11/18/22 05/03/23 empagliflozin 10 mg tablet 10 mg PO DAILY 11/18/22 05/03/23 (Jardiance) gabapentin 300 mg capsule 900 mg feeding tube TID 11/18/22 05/03/23 insulin glargine 100 unit/mL 10 unit subcut QPM 11/18/22 05/03/23 subcutaneous solution (Lantus U-100 Insulin) melatonin 3 mg capsule 9 mg PO HS PRN 11/18/22 05/03/23 metoprolol succinate 50 mg 50 mg PO BID 11/18/22 05/03/23 tablet,extended release 24 hr quetiapine 100 mg tablet 100 mg PO QHS 11/18/22 05/03/23 sacubitril 24 mg-valsartan 26 mg 1 tab feeding tube DAILY 11/18/22 05/03/23 tablet (Entresto) valproic acid (as sodium salt) 250 300 mg PO TID 11/18/22 05/03/23 mg/5 mL oral solution bupropion HCl 100 mg tablet 300 mg PO DAILY 12/16/22 05/03/23 protein See Rx Instructions PO .COMPLEX 12/16/22 05/03/23 acetaminophen 500 mg/15 mL oral 1,000 mg (30 mL) PO Q8H PRN #237 mL 01/19/23 05/03/23 liquid ferrous sulfate 300 mg (60 mg 300 mg feeding tube .QOD 01/31/23 05/03/23 iron)/5 mL oral liquid esomeprazole magnesium 40 mg 40 mg NG BID@0730,2000 #0 ea 02/02/23 05/03/23 granules delayed release for susp insulin NPH isoph U-100 human 100 See Rx Instructions .Route 02/28/23 05/03/23 unit/mL (3 mL) subcutaneous pen .COMPLEX #0 mL (Humulin N NPH U-100 Insulin KwikPen) ibuprofen 100 mg/5 mL oral 600 mg PO Q8H PRN 04/04/23 05/03/23 suspension aspirin 81 mg chewable tablet 81 mg feeding tube DAILY 05/03/23 05/03/23 divalproex 250 mg tablet,extended 250 mg PO DAILY 05/03/23 05/03/23 release 24 hr nystatin 100,000 unit/gram topical 1 applic topical ONCE PRN 05/03/23 05/03/23 powder pantoprazole 40 mg granules 40 mg G-tube DAILY 05/03/23 05/03/23 delayed-release for susp in packet Previous Rx's Medication Instructions Recorded folic acid 1 mg tablet 1 mg PO DAILY #0 tabs 08/10/22 multivitamin (Multiple Vitamins 1 tab PO DAILY #30 tabs 08/10/22 tablet) acetaminophen 500 mg/15 mL oral 1,000 mg (30 mL) PO Q8H PRN #237 mL 01/19/23 liquid esomeprazole magnesium 40 mg 40 mg NG BID@0730,1999 #0 ea 02/02/23 granules delayed release for susp insulin NPH isoph U-100 human 100 See Rx Instructions .Route 02/28/23 unit/mL (3 mL) subcutaneous pen .COMPLEX #0 mL (Humulin N NPH U-100 Insulin KwikPen) Allergies Allergy/AdvReac Type Severity Reaction Status Date / Time metformin AdvReac Unknown Diarrhea Verified 05/03/23 02:00 meperidine AdvReac gi upset Verified 05/03/23 02:00 General ASHANTI: 3 Review of Systems All systems reviewed & are unremarkable except as noted in HPI and below PFSH All Active Problems Pneumonitis (Acute) Aspiration pneumonia (Acute) Gastrostomy tube obstruction (Acute) Lab test positive for detection of COVID-19 virus (Acute) PEG (percutaneous endoscopic gastrostomy) status (Chronic) Esophageal stricture (Acute) Chronic systolic (congestive) heart failure (Chronic) 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) Aspiration pneumonia (Acute) Acute respiratory failure with hypoxia (Acute) COVID (Acute) Depression (Chronic) Bipolar 1 disorder (Acute) Diabetes (Chronic) Cholelithiasis (Chronic) Ventral hernia (Acute) Leukocytosis (Acute) Pleural effusion (Acute) Black tarry stools (Acute) Chronic diarrhea (Acute) Farrell's esophagus (Chronic) Esophageal ulcer with bleeding (Acute) Erosive esophagitis (Acute) Farrell's 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 (Acute) Hyperplastic colon polyp (Acute ~06/10/21) Tubular adenoma (Acute ~06/10/21) Neuroleptic induced parkinsonism (Acute) Drug-induced parkinsonism (Acute) Anemia (Chronic) Status post hip surgery (Acute) H/O: pneumonia (Acute) Abnormal chest xray (Acute) Pre-op evaluation (Acute) Medical History Stress-induced cardiomyopathy acute onset managed at [facility] 08/30 pressors, EF 25%, has since recovered RH NSTEMI (non-ST elevated myocardial infarction) Per pt. states she did not have a heart attack Acute cardiogenic pulmonary edema Acute metabolic encephalopathy Bilateral pneumonia Hypokalemia Closed fracture of neck of left femur s/p Percutaneous Screw Fixation 08/09/22 Constipation Diabetes mellitus type 2 in obese Chronic iron deficiency anemia ETOH abuse Poorly controlled diabetes mellitus Chronic pancreatitis due to acute alcohol intoxication Alcohol abuse Per pt. states she has never had an issues with any subtances History of pilonidal cyst Anxiety Surgical History History of total left hip arthroplasty (01/19/23) S/P laparoscopic procedure cyst removed from stomach per patient S/P surgical removal of pilonidal cyst History of esophagogastroduodenoscopy (EGD) (~06/10/21) History of colonoscopy with polypectomy (~06/10/21) History of hysterectomy History of tonsillectomy History of section Family History Father Hypertension Diabetes Heart disease Social History Smoking/Tobacco Use Status: Never Smoking risk assessment performed?: Yes Alcohol Intake: never Drug use: Never Substance use type: does not use Household members: spouse Housing: house Number of Children: 2 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 3.ENT: Atraumatic external nose and ears. Moist MM. Neck: Symmetric, trachea midline, No thyromegaly. 4.CVS: +S1/S2, No murmurs or gallops. Peripheral pulses 2+ and equal in all extremities. Brisk capillary refill in all extremities. 5.RESP: Notably rhonchorous breath sounds. Scattered crackles. No wheezes. 6.GI: Soft, Nontender/Nondistended, No hepatosplenomegaly. No guarding or rebound. 7.MSK: Normocephalic/Atraumatic, Extremities w/o deformity or ttp No cyanosis or clubbing, Normal movement of all extremities 8.Skin: Warm, Dry. No rashes or lesions. 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 Sensation grossly intact, no focal neurologic deficits. 10.Psych: (AAO) x3. Appropriate mood and affect
[2023-05-03 03:14] LABS: PTT Activated 23.9 sec (23.6-32.8); Prothrombin Time 9.8 sec (9.1-11.1)
[2023-05-03 03:33] LABS: Lactate 1.5 mmol/L (0.6-1.4)
[2023-05-03 03:35] LABS: Abs Immature Grans 0.03 10^3/uL (0.0-0.06); Absolute Basophil Count 0.03 10^3/uL (0.0-0.2); Absolute Eosinophil Count 0.14 10^3/uL (0.0-0.7); Absolute Lymphocyte Count 1.88 10^3/uL (1.2-3.4); Absolute Monocyte Count 0.44 10^3/uL (0.1-0.8); Absolute Neutrophil Count 6.48 10^3/uL (1.2-6.7); Basophils % 0.3; Eosinophils % 1.6; HCT 45.1 % (36.0-46.0); HGB 14.5 g/dL (11.2-15.7); Immature Grans % 0.3; Lymphocytes % 20.9; MCH 28.1 pg (27.0-33.0); MCHC 32.2 % (32.0-36.0); MCV 87 fL (80-95); MPV 10.5 fL (8.0-11.0); Monocytes % 4.9; Platelet Count 175 10^3/uL (130-400); RBC 5.16 10^6/uL (3.93-5.22); RDW 15.4 % (11.7-14.6); RDW-SD 49.7 fL
[2023-05-03 03:51] LABS: ALT 12 U/L (14-59); AST 13 U/L (15-37); Albumin 3.1 g/dL (3.4-5.0); Alkaline Phosphatase 123 U/L (46-116); Anion Gap 4.8 mmol/L (3-11); BUN 24 mg/dL (7-18); Bilirubin, Total 0.3 mg/dL (0.2-1.0); CO2 35.2 mmol/L (21.0-32.0); CREATININE 0.9 mg/dL (0.55-1.02); Calcium 9.4 mg/dL (8.5-10.1); Chloride 102 mmol/L (98-107); Estimated GFR 72.28 (mL/min/1.73m2); Glucose 53 mg/dL (74-106); Potassium 4.6 mmol/L (3.5-5.1); Sodium 142 mmol/L (136-145); Total Protein 7.1 g/dL (6.4-8.2)
[2023-05-03] MEDS: Lactated Ringers 1,000 ML 1000 ML IV (04:02)
[2023-05-03] MEDS: AMPICILLIN/SULBACTAM 3 GM in Normal Saline 100 ML IVPB ×4 (04:02→23:14)
[2023-05-03 04:15] LABS: Procalcitonin < 0.1 ng/mL
--- NOTE | 2023-05-03 04:32 | NUR.NOTE ---
Assisted by ADRIANA RN, changed and cleaned pt, placed pure wick with suction at 50, well tolerated by pt, replaced gown and brief and socks, LESLYE
[2023-05-03 04:33] LABS: NT-proBNP 485 pg/mL (<300)
[2023-05-03 05:09] LABS: BE (Venous) 8 mmol/L (-2-3); HCO3 (Venous) 35 mmol/L (23-28); O2 Sat (Venous) 27 %; TCO2 (Venous) 32 mmol/L (24-29); pH (Venous) 7.29 (7.31-7.41); pO2 (Venous) 24 mmHg
[2023-05-03 05:12] LABS: pCO2 (Venous) 73 mmHg (41-51)
--- NOTE | 2023-05-03 05:22 | DI.VRAD_ITS ---
PROCEDURE INFORMATION: Exam: XR Chest Exam date and time: 05/03/2023 3:00 AM Age: 62 years old Clinical indication: Other: Hypoxic and rhonchorous breath sounds TECHNIQUE: Imaging protocol: Radiologic exam of the chest. Views: 1 view. COMPARISON: CR XR PORTABLE CHEST AP 02/26/2023 11:00 PM FINDINGS: Lungs: Infiltrates in both mid to lower lungs. Pleural spaces: Questionable small left pleural effusion. Heart/Mediastinum: No cardiomegaly. Bones/joints: Grossly unremarkable. IMPRESSION: 1. Bilateral pulmonary infiltrates suspicious for pneumonia. There could be a component of edema as well. 2. Possible left pleural effusion. Dictated and Authenticated by: Laila Gomez MD. Ordering:FARHAD Guevara MD
--- NOTE | 2023-05-03 05:25 | HPE_ITS ---
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 She stabilized in the ED on BiPAP with hypercapnia and hypoxemia by VBG. She continues to have severe hypoxemia by pulse oximeter when off BiPAP and transferred to her bed on MedSurg unit. She will have telemetry with pulse oximetry continuous monitoring. Cardiomyopathy appears stable with BNP below 500 and she will have fluid resuscitation for her lactic acidosis. She will be on clear fluids as tolerated but most of her meds are given through NG tube with this to be reviewed by pharmacy in the morning. She is a full code. (2) Aspiration pneumonia: Start date: 05/03/23 Status: Acute Assessment and plan: Recurrent aspiration after dilatation of esophageal stricture which occurred 3 days prior to admission. She has acute respiratory failure which is responding to BiPAP and O2 supplementation increased from her baseline 2 L/min per nasal cannula. Will continue on Unasyn IV and follow-up chest x-ray. Procalcitonin was negative which is reassuring. Blood cultures were not performed and sputum cultures have not been ordered. This can be followed up on if patient has fever. This is probably more of a chemical pneumonitis at the onset. Qualifiers: Aspiration pneumonia type: due to gastric secretions Laterality: left Lung location: unspecified part of lung Qualified Code(s): J69.0 - Pneumonitis due to inhalation of food and vomit (3) Chronic systolic (congestive) heart failure: Status: Chronic Assessment and plan: Patient has history of stress-induced cardiomyopathy with ejection fraction 25% at [facility] in the past but has since recovered and is tolerating gentle fluid resuscitation well. Continue low rate IV fluids though patient is eating and drinking more normally. BMP was reassuring. Her outpatient medical therapy will be continued with patient not on diuretics. TSH was normal. Follow-up echocardiogram if available and if not done within the last 3 to 6 months. (4) Esophageal stricture: Status: Chronic Assessment and plan: Secondary to Farrell's esophagus with recurrent dilatation needed. She does have a PEG tube because of difficulty swallowing. Continue usual outpatient medications with clear fluids for now if tolerated and swallow evaluation if indicated during this hospital stay. This must been done as an outpatient as well. (5) Insulin dependent type 2 diabetes mellitus: Status: Chronic Assessment and plan: Treat with glucometer measurements before meals and bedtime and short acting insulin coverage while hospitalized. Jardiance will be continued because of history of cardiomyopathy. (6) Bipolar 1 disorder: Status: Chronic Assessment and plan: Continue outpatient medications the same. Patient states she thinks this may be the cause of her tremor. History of Present Illness History of Present Illness Chief Complaint: Acute onset severe shortness of breath Narrative: This is a 62-year-old female patient who has a history of esophageal stricture with history of Farrell's esophagus who recently underwent her second EGD with dilatation and ligation of peptic esophageal stricture at [facility] with gastroenterology. She did have problems with aspiration pneumonia after her previous dilatation. She does have a PEG tube for feeding because of difficulty swallowing. She does eat normally but does have multiple medicines either in liquid form or administered through the PEG tube. The patient presented to the ED with onset of a cough the day prior to presentation and then the night of presentation had acute severe shortness of breath with worsening cough and severe hypoxemia into the low 70% range when seen by the EMS on her usual oxygen of 2 L/min per nasal cannula. She did receive DuoNeb and was increased to 6 L/min per nasal cannula with pulse oximeter going from the 70s into the high 80s. In the ED she received BiPAP and did have a VBG revealing hypercapnic and hypoxic respiratory failure. Chest x-ray was consistent with probable aspiration pneumonia. She did have 1 dose of Solu-Medrol but when I saw the patient upon being brought to the medical surgical unit, she had much better lung findings with no bronchospasm symptoms and no rhonchi. She currently is not on bronchodilators. She was ordered Unasyn which will be continued. She does have a history of cardiomyopathy but did tolerate a liter of fluid with hypotension on treatment for her CHF with Entresto and Jardiance. There is also for chronic diabetes. She does have a chronic tremor recent onset secondary to her medical therapy. She has had no increased weight or peripheral edema recently. Her cardiomyopathy did recover on medical therapy by history with the last ventricular ejection fraction about 30% by report from the ED provider. Patient is currently on 2 L/min per nasal cannula of oxygen at home and does not wear CPAP at night. Patient is a full code. Review of Systems Narrative: 13 point review of systems otherwise unrevealing or stable. Patient has had no chest pain with this episode with a history of CAD. [facility], [facility] All Active Problems (Updated 05/03/23 @ 05:42 by Geronimo Denney) Acute on chronic respiratory failure with hypoxia and hypercapnia (Acute) Pneumonitis (Acute) Aspiration pneumonia (Acute) Gastrostomy tube obstruction (Acute) Lab test positive for detection of COVID-19 virus (Acute) PEG (percutaneous endoscopic gastrostomy) status (Chronic) Esophageal stricture (Chronic) Chronic systolic (congestive) heart failure (Chronic) 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) Aspiration pneumonia (Acute) Acute respiratory failure with hypoxia (Acute) COVID (Acute) Depression (Chronic) Bipolar 1 disorder (Chronic) Diabetes (Chronic) Cholelithiasis (Chronic) Ventral hernia (Acute) Leukocytosis (Acute) Pleural effusion (Acute) Black tarry stools (Acute) Chronic diarrhea (Acute) Farrell's esophagus (Chronic) Esophageal ulcer with bleeding (Acute) Erosive esophagitis (Acute) Farrell's 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 (Acute) Hyperplastic colon polyp (Acute ~06/10/21) Tubular adenoma (Acute ~06/10/21) Neuroleptic induced parkinsonism (Acute) Drug-induced parkinsonism (Acute) Anemia (Chronic) Status post hip surgery (Acute) H/O: pneumonia (Acute) Abnormal chest xray (Acute) Pre-op evaluation (Acute) Medical History (Updated 05/03/23 @ 05:42 by Geronimo Denney) Stress-induced cardiomyopathy acute onset managed at [facility] 08/30 pressors, EF 25%, has since recovered RH NSTEMI (non-ST elevated myocardial infarction) Per pt. states she did not have a heart attack Acute cardiogenic pulmonary edema Acute metabolic encephalopathy Bilateral pneumonia Hypokalemia Closed fracture of neck of left femur s/p Percutaneous Screw Fixation 08/09/22 Constipation Diabetes mellitus type 2 in obese Chronic iron deficiency anemia ETOH abuse Poorly controlled diabetes mellitus Chronic pancreatitis due to acute alcohol intoxication Alcohol abuse Per pt. states she has never had an issues with any subtances History of pilonidal cyst Anxiety Surgical History History of total left hip arthroplasty (01/19/23) S/P laparoscopic procedure cyst removed from stomach per patient S/P surgical removal of pilonidal cyst History of esophagogastroduodenoscopy (EGD) (~06/10/21) History of colonoscopy with polypectomy (~06/10/21) History of hysterectomy History of tonsillectomy History of section Family History Father Hypertension Diabetes Heart disease Social History Smoking/Tobacco Use Status: Never Smoking risk assessment performed?: Yes Alcohol Intake: never Drug use: Never Substance use type: does not use Household members: spouse Housing: house Number of Children: 2 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 Meds Allergies and Home Medications Allergies Allergy/AdvReac Type Severity Reaction Status Date / Time metformin AdvReac Unknown Diarrhea Verified 05/03/23 02:00 meperidine AdvReac gi upset Verified 05/03/23 02:00 Home Medications Medication Instructions Recorded Confirmed Type sucralfate 1 gram tablet 1 g PO QID 08/08/22 05/03/23 History folic acid 1 mg tablet 1 mg PO DAILY #0 tabs 08/10/22 05/03/23 Rx multivitamin (Multiple Vitamins 1 tab PO DAILY #30 tabs 08/10/22 05/03/23 Rx tablet) atorvastatin 80 mg tablet 80 mg PO DAILY 11/18/22 05/03/23 History empagliflozin 10 mg tablet 10 mg PO DAILY 11/18/22 05/03/23 History (Jardiance) gabapentin 300 mg capsule 900 mg feeding tube TID 11/18/22 05/03/23 History insulin glargine 100 unit/mL 10 unit subcut QPM 11/18/22 05/03/23 History subcutaneous solution (Lantus U-100 Insulin) melatonin 3 mg capsule 9 mg PO HS PRN 11/18/22 05/03/23 History metoprolol succinate 50 mg 50 mg PO BID 11/18/22 05/03/23 History tablet,extended release 24 hr quetiapine 100 mg tablet 100 mg PO QHS 11/18/22 05/03/23 History sacubitril 24 mg-valsartan 26 mg 1 tab feeding tube DAILY 11/18/22 05/03/23 History tablet (Entresto) valproic acid (as sodium salt) 250 300 mg PO TID 11/18/22 05/03/23 History mg/5 mL oral solution bupropion HCl 100 mg tablet 300 mg PO DAILY 12/16/22 05/03/23 History protein See Rx Instructions PO .COMPLEX 12/16/22 05/03/23 History acetaminophen 500 mg/15 mL oral 1,000 mg (30 mL) PO Q8H PRN #237 mL 01/19/23 05/03/23 Rx liquid ferrous sulfate 300 mg (60 mg 300 mg feeding tube .QOD 01/31/23 05/03/23 History iron)/5 mL oral liquid esomeprazole magnesium 40 mg 40 mg NG BID@0730,2000 #0 ea 02/02/23 05/03/23 Rx granules delayed release for susp insulin NPH isoph U-100 human 100 See Rx Instructions .Route 02/28/23 05/03/23 Rx unit/mL (3 mL) subcutaneous pen .COMPLEX #0 mL (Humulin N NPH U-100 Insulin KwikPen) ibuprofen 100 mg/5 mL oral 600 mg PO Q8H PRN 04/04/23 05/03/23 History suspension aspirin 81 mg chewable tablet 81 mg feeding tube DAILY 05/03/23 05/03/23 History divalproex 250 mg tablet,extended 250 mg PO DAILY 05/03/23 05/03/23 History release 24 hr nystatin 100,000 unit/gram topical 1 applic topical ONCE PRN 05/03/23 05/03/23 History powder pantoprazole 40 mg granules 40 mg G-tube DAILY 05/03/23 05/03/23 History delayed-release for susp in packet Exam Narrative Exam Narrative: General: Patient appears older than stated age, soft-spoken with flattened affect. Alert and oriented x 3. She is in moderate distress from her tachypnea with BiPAP in place. HEENT: Normocephalic, coarsened facial features, unkempt hair, and eyes with pupils equal and reactive light symmetrically, extraocular movement intact and sclera anicteric. Oropharynx with dry mucosa and poor dentition. Neck: Supple without JVD. Back: Kyphotic without CVA tenderness. Lungs: Fair aeration with no focalizing rales or rhonchi but poor inspiratory effort. No increased expiratory phase or expiratory wheeze. Heart: Regular rate and rhythm with distant heart sounds, no appreciable murmur or gallop. Breast: Exam deferred. Abdomen: Obese contour, soft nontender to palpation with no palpable hepatosplenomegaly. Bowel sounds positive all quadrants. PEG tube in place. Genitalia/rectal: Exam deferred. Extremities: Nonpitting edema lower extremities with no clubbing or cyanosis. Joints with fair range of motion. Fair capillary refill. Skin: Slightly moist, normal color, warm and dry. Neuro: Cranial nerves II through XII grossly intact. No focal motor deficits. Course resting tremor over both upper extremities worse on the right than left. Psych: Flattened affect with depressed mood. No abnormal thought processes. Remote and recent memory appear to be grossly intact. Results Imaging Imaging Studies: xam: XR Chest Exam date and time: 05/03/2023 3:00 AM Age: 62 years old Clinical indication: Other: Hypoxic and rhonchorous breath sounds TECHNIQUE: Imaging protocol: Radiologic exam of the chest. Views: 1 view. COMPARISON: CR XR PORTABLE CHEST AP 02/26/2023 11:00 PM FINDINGS: Lungs: Infiltrates in both mid to lower lungs. Pleural spaces: Questionable small left pleural effusion. Heart/Mediastinum: No cardiomegaly. Bones/joints: Grossly unremarkable. IMPRESSION: 1. Bilateral pulmonary infiltrates suspicious for pneumonia. There could be a component of edema as well. 2. Possible left pleural effusion. Labs 05/03/23 03:25 05/03/23 03:25 Labs: Laboratory Results - last 24 hr 05/03/23 05/03/23 05/03/23 02:56 03:25 03:29 WBC 9.00 RBC 5.16 Hgb 14.5 Hct 45.1 MCV 87 MCH 28.1 MCHC 32.2 RDW 15.4 H Plt Count 175 MPV 10.5 Immature Gran % 0.3 Neutrophils % 72.0 Lymphocytes % 20.9 Monocytes % 4.9 Eosinophils % 1.6 Basophils % 0.3 Nucleated RBC % 0.0 Absolute Neutrophils 6.48 Absolute Lymphocytes 1.88 Absolute Monocytes 0.44 Absolute Eosinophils 0.14 Absolute Basophils 0.03 PT 9.8 INR 1.0 APTT 23.9 VBG pH VBG pCO2 VBG pO2 VBG HCO3 VBG Total CO2 VBG O2 Saturation VBG Base Excess VBG Lactate 1.5 H Sodium 142 Potassium 4.6 Chloride 102 Carbon Dioxide 35.2 H Anion Gap 4.8 BUN 24 H Creatinine 0.9 Est GFR (CKD-EPI 2020) 72.28 Glucose 53 L Calcium 9.4 Total Bilirubin 0.3 AST 13 L ALT 12 L Alkaline Phosphatase 123 H NT-Pro-B Natriuret Pep 485 H Total Protein 7.1 Albumin 3.1 L Procalcitonin < 0.1 05/03/23 05:08 WBC RBC Hgb Hct MCV MCH MCHC RDW Plt Count MPV Immature Gran % Neutrophils % Lymphocytes % Monocytes % Eosinophils % Basophils % Nucleated RBC % Absolute Neutrophils Absolute Lymphocytes Absolute Monocytes Absolute Eosinophils Absolute Basophils PT INR APTT VBG pH 7.29 L VBG pCO2 73 H* VBG pO2 24 VBG HCO3 35 H VBG Total CO2 32 H VBG O2 Saturation 27 VBG Base Excess 8 H VBG Lactate Sodium Potassium Chloride Carbon Dioxide Anion Gap BUN Creatinine Est GFR (CKD-EPI 2020) Glucose Calcium Total Bilirubin AST ALT Alkaline Phosphatase NT-Pro-B Natriuret Pep Total Protein Albumin Procalcitonin Last Vital Signs Temp 36.9 C 05/03/23 02:04 Pulse 55 L 05/03/23 04:01 Resp 18 05/03/23 04:40 BP 131/51 L 05/03/23 04:01 Pulse Ox 95 05/03/23 03:18 Time Spent Time spent with Patient: >75 minutes Time was spent: preparing to see the patient(eg.review tests), obtaining and/or reviewing separately otained hiistory, ordering medications,tests, procedures, referring, communicating with other health personal care aid, indepentently interpreting results and care coordination
[2023-05-03] MEDS: methylPREDNISolone SUCC 125 MG VIAL IVP (05:32)
[2023-05-03] MEDS: Albuterol/Ipratropium 3 ML UPD VIAL UPD (05:32)
[2023-05-03 06:13] LABS: TSH (W/Ref FT4) 3.33 uIU/mL (0.36-3.74)
[2023-05-03 06:28] LABS: COVID-19 PCR Negative (Negative); Influenza A PCR Negative (Negative); Influenza B PCR Negative (Negative); RSV PCR Negative (Negative); Source Nasopharynx
[2023-05-03] MEDS: DEXTROSE 5%-LACTATED RINGERS 1,000 ML 75 ML IV (08:25)
[2023-05-03] MEDS: Sucralfate 1 GM TAB PO (08:52)
[2023-05-03] MEDS: Multivitamin TAB 1 TAB PO (08:53)
[2023-05-03] MEDS: Folic Acid 1 MG TAB PO (08:53)
[2023-05-03] MEDS: Gabapentin 300 MG CAP 900 MG PO (08:53)
[2023-05-03] MEDS: Sacubitril/Valsartan 24 mg/26 mg TAB 1 EACH PO (08:53)
[2023-05-03] MEDS: Aspirin 81 MG CHEW PO (08:53)
[2023-05-03] MEDS: Empaglifozin 10 MG TAB PO (08:53)
[2023-05-03] MEDS: Enoxaparin 40 MG/0.4 ML SYR SC (08:54)
[2023-05-03] MEDS: Protein Nutritional Supplement 16 GM 1 OUNCE PACKET PO (08:54)
[2023-05-03] MEDS: Normal Saline Flush 10 ML SYR IVP ×2 (08:55→20:52)
[2023-05-03 09:24] LABS: BE (Venous) 7 mmol/L (-2-3); HCO3 (Venous) 31 mmol/L (23-28); O2 Sat (Venous) 93 %; TCO2 (Venous) 28 mmol/L (24-29); pCO2 (Venous) 47 mmHg (41-51); pH (Venous) 7.43 (7.31-7.41); pO2 (Venous) 64 mmHg
[2023-05-03 09:26] LABS: Lactate 1.7 mmol/L (0.6-1.4)
[2023-05-03] MEDS: buPROPion 100 MG TAB 300 MG NG (12:30)
--- NOTE | 2023-05-03 12:52 | TELEP.MEDREC ---
Date of service: 05/03/23 Time of Service: 12:53 Telepharmacy Home Med Rec Allergies Allergies: metformin Adverse Reaction (Unknown, Verified 05/03/23 02:00) Diarrhea meperidine Adverse Reaction (Verified 05/03/23 02:00) gi upset Interview Person Interviewed: Campos Quality Quality of Interview/Accuracy of Medication List: Excellent Changes made to Home Medication List: ADDITIONS: Nystatin cream PRN DELETIONS: Aspirin Divalproex Esomeprazole CHANGES: Entresto: takes BID Additional Notes Additional Notes: Patient's reports she took all of her medications yesterday before coming to the hospital. Recommended Changes Attestation: The home medication list is now updated to the best of my knowledge and is ready to be reconciled by the provider. [facility]ist at for any questions.
[2023-05-03] MEDS: Gabapentin 300 MG CAP 900 MG NG ×2 (14:13→20:39)
[2023-05-03] MEDS: Sucralfate 1 GM TAB NG ×2 (16:09→22:42)
--- NOTE | 2023-05-03 16:26 | W.PM.PROGNOT ---
Date of Service Date of service: 05/03/23 Time of Service: 12:45 Subjective Subjective Interval history since last seen: Patient was seen in brief follow up. At the time she was just transitioned off of the nasal cannula to RA. She felt better. Denies dizziness, CP, SOB, n/v. She and her state that she is allowed to have thin liquids and popsicles orally; otherwise, she is supposed to be getting tube feeding. This has been ordered. Both Jennifer and her understand that she is not ready for discharge home today. Continue unasyn. I do not see a role for steroids at this time. D/C IVF if BP permits this. Objective Last Vital Signs Temp 36.9 C 05/03/23 16:12 Pulse 62 05/03/23 16:12 Resp 18 05/03/23 16:12 BP 82/52 L 05/03/23 16:12 Pulse Ox 96 05/03/23 16:12 Laboratory Results - last 24 hr 05/03/23 05/03/23 05/03/23 02:56 03:25 03:29 WBC 9.00 RBC 5.16 Hgb 14.5 Hct 45.1 MCV 87 MCH 28.1 MCHC 32.2 RDW 15.4 H Plt Count 175 MPV 10.5 Immature Gran % 0.3 Neutrophils % 72.0 Lymphocytes % 20.9 Monocytes % 4.9 Eosinophils % 1.6 Basophils % 0.3 Nucleated RBC % 0.0 Absolute Neutrophils 6.48 Absolute Lymphocytes 1.88 Absolute Monocytes 0.44 Absolute Eosinophils 0.14 Absolute Basophils 0.03 PT 9.8 INR 1.0 APTT 23.9 VBG pH VBG pCO2 VBG pO2 VBG HCO3 VBG Total CO2 VBG O2 Saturation VBG Base Excess VBG Lactate 1.5 H Sodium 142 Potassium 4.6 Chloride 102 Carbon Dioxide 35.2 H Anion Gap 4.8 BUN 24 H Creatinine 0.9 Est GFR (CKD-EPI 2020) 72.28 Glucose 53 L Calcium 9.4 Total Bilirubin 0.3 AST 13 L ALT 12 L Alkaline Phosphatase 123 H NT-Pro-B Natriuret Pep 485 H Total Protein 7.1 Albumin 3.1 L Procalcitonin < 0.1 TSH 3.33 COVID-19 Source SARS-CoV-2 (PCR) Influenza Type A (PCR) Influenza Type B (PCR) RSV (PCR) 05/03/23 05/03/23 05/03/23 05:08 05:50 09:20 WBC RBC Hgb Hct MCV MCH MCHC RDW Plt Count MPV Immature Gran % Neutrophils % Lymphocytes % Monocytes % Eosinophils % Basophils % Nucleated RBC % Absolute Neutrophils Absolute Lymphocytes Absolute Monocytes Absolute Eosinophils Absolute Basophils PT INR APTT VBG pH 7.29 L 7.43 H VBG pCO2 73 H* 47 VBG pO2 24 64 VBG HCO3 35 H 31 H VBG Total CO2 32 H 28 VBG O2 Saturation 27 93 VBG Base Excess 8 H 7 H VBG Lactate 1.7 H Sodium Potassium Chloride Carbon Dioxide Anion Gap BUN Creatinine Est GFR (CKD-EPI 2020) Glucose Calcium Total Bilirubin AST ALT Alkaline Phosphatase NT-Pro-B Natriuret Pep Total Protein Albumin Procalcitonin TSH COVID-19 Source Nasopharynx SARS-CoV-2 (PCR) Negative Influenza Type A (PCR) Negative Influenza Type B (PCR) Negative RSV (PCR) Negative Time Spent with Patient Time Spent with Patient: 25-34 minutes Time was spent: preparing to see the patient(eg.review tests), obtaining and/or reviewing separately otained hiistory, ordering medications,tests, procedures, referring, communicating with other health dialysis patient care technician, indepentently interpreting results, counseling the patient and care coordination
[2023-05-03] MEDS: Insulin Aspart 300 UNITS/3 ML PEN SC ×2 (18:51→23:15)
[2023-05-03] MEDS: Melatonin 3 MG TAB 9 MG PO (20:39)
[2023-05-03] MEDS: Atorvastatin 40 MG TAB 80 MG NG (20:40)
[2023-05-03] MEDS: QUEtiapine 100 MG TAB NG (22:42)
[2023-05-04 00:30] VITALS: BP 94/59; PULSE 63; RESP 20; TEMP 36.3; O2SAT 95
[2023-05-04] MEDS: DEXTROSE 5%-LACTATED RINGERS 1,000 ML 75 ML IV (01:49)
[2023-05-04] MEDS: AMPICILLIN/SULBACTAM 3 GM in Normal Saline 100 ML IVPB ×2 (03:50→10:00)
[2023-05-04] MEDS: Normal Saline Flush 10 ML SYR IVP ×2 (03:50→08:13)
[2023-05-04 06:29] LABS: Abs Immature Grans 0.03 10^3/uL (0.0-0.06); Absolute Basophil Count 0.02 10^3/uL (0.0-0.2); Absolute Eosinophil Count 0.02 10^3/uL (0.0-0.7); Absolute Lymphocyte Count 1.51 10^3/uL (1.2-3.4); Absolute Monocyte Count 0.69 10^3/uL (0.1-0.8); Absolute Neutrophil Count 8.23 10^3/uL (1.2-6.7); Basophils % 0.2; Eosinophils % 0.2; HCT 35.8 % (36.0-46.0); HGB 11.8 g/dL (11.2-15.7); Immature Grans % 0.3; Lymphocytes % 14.4; MCH 28.4 pg (27.0-33.0); MCV 86 fL (80-95); MPV 10.8 fL (8.0-11.0); Monocytes % 6.6; Neutrophils % 78.3; Platelet Count 144 10^3/uL (130-400); RBC 4.16 10^6/uL (3.93-5.22); RDW 15.9 % (11.7-14.6); RDW-SD 49.7 fL
[2023-05-04 06:42] LABS: Anion Gap 3.2 mmol/L (3-11); BUN 21 mg/dL (7-18); CO2 33.8 mmol/L (21.0-32.0); CREATININE 0.8 mg/dL (0.55-1.02); Calcium 9.2 mg/dL (8.5-10.1); Chloride 104 mmol/L (98-107); Estimated GFR 83.26 (mL/min/1.73m2); Glucose 140 mg/dL (74-106); Magnesium 1.9 mg/dL (1.8-2.4); Potassium 4.2 mmol/L (3.5-5.1); Sodium 141 mmol/L (136-145)
[2023-05-04 07:25] VITALS: BP 103/58; PULSE 55; RESP 18; TEMP 36.4; O2SAT 99
[2023-05-04] MEDS: Enoxaparin 40 MG/0.4 ML SYR SC (07:36)
[2023-05-04] MEDS: buPROPion 100 MG TAB 300 MG NG (07:39)
[2023-05-04] MEDS: Gabapentin 300 MG CAP 900 MG NG (07:39)
[2023-05-04] MEDS: Sacubitril/Valsartan 24 mg/26 mg TAB 1 EACH NG (07:40)
[2023-05-04] MEDS: Sucralfate 1 GM TAB NG (07:40)
[2023-05-04] MEDS: Empaglifozin 10 MG TAB NG (07:49)
[2023-05-04] MEDS: Multivitamin TAB 1 TAB UD (07:49)
[2023-05-04] MEDS: Folic Acid 1 MG TAB NG (07:49)
[2023-05-04] MEDS: Aspirin 81 MG CHEW NG (07:49)
[2023-05-04] MEDS: Protein Nutritional Supplement 16 GM 1 OUNCE PACKET NG (07:59)
[2023-05-04 08:10] VITALS: O2SAT 99
--- NOTE | 2023-05-04 09:23 | PGE_ITS ---
Date of Service Date of service: 05/04/23 Time of Service: : Assessment and Plan Assessment and plan (1) Acute on chronic respiratory failure with hypoxia and hypercapnia: Start date: 05/03/23 Status: Acute Assessment and plan: This is a 62-year-old lady who has recurrent aspiration pneumonia after dilatation of her esophageal stricture secondary to Farrell's esophagus. She stabilized in the ED on BiPAP with hypercapnia and hypoxemia by VBG. She continues to have severe hypoxemia by pulse oximeter when off BiPAP and transf erred to her bed on MedSurg unit. She will have telemetry with pulse oximetry continuous monitoring. Cardiomyopathy appears stable with BNP below 500 and she will have fluid resuscitation for her lactic acidosis. She will be on clear fluids as tolerated but most of her meds are given through NG tube with this to be reviewed by pharmacy in the morning. She is a full code. (2) Aspiration pneumonia: Start date: 05/03/23 Status: Acute Assessment and plan: Recurrent aspiration after dilatation of esophageal stricture which occurred 3 days prior to admission. She has acute respiratory failure which is responding to BiPAP and O2 supplementation increased from her baseline 2 L/min per nasal cannula. Will continue on Unasyn IV and follow-up chest x-ray. Procalcitonin was negative which is reassuring. Blood cultures were not performed and sputum cultures have not been ordered. This can be followed up on if patient has fever. This is probably more of a chemical pneumonitis at the onset. Qualifiers: Aspiration pneumonia type: due to gastric secretions Laterality: left Lung location: unspecified part of lung Qualified Code(s): J69.0 - Pneumonitis due to inhalation of food and vomit (3) Chronic systolic (congestive) heart failure: Status: Chronic Assessment and plan: Patient has history of stress-induced cardiomyopathy with ejection fraction 25% at [facility] in the past but has since recovered and is tolerating gentle fluid resuscitation well. Continue low rate IV fluids though patient is eating and drinking more normally. BMP was reassuring. Her outpatient medical therapy will be continued with patient not on diuretics. TSH was normal. Follow-up echocardiogram if available and if not done within the last 3 to 6 months. (4) Esophageal stricture: Status: Chronic Assessment and plan: Secondary to Farrell's esophagus with recurrent dilatation needed. She does have a PEG tube because of difficulty swallowing. Continue usual outpatient medications with clear fluids for now if tolerated and swallow evaluation if indicated during this hospital stay. This must been done as an outpatient as well. (5) Insulin dependent type 2 diabetes mellitus: Status: Chronic Assessment and plan: Treat with glucometer measurements before meals and bedtime and short acting insulin coverage while hospitalized. Jardiance will be continued because of history of cardiomyopathy. (6) Bipolar 1 disorder: Status: Chronic Assessment and plan: Continue outpatient medications the same. Patient states she thinks this may be the cause of her tremor. Objective Last Vital Signs Temp 36.4 C L 05/04/23 07:25 Pulse 55 L 05/04/23 07:25 Resp 18 05/04/23 07:25 BP 103/58 L 05/04/23 07:25 Pulse Ox 99 05/04/23 08:10 Laboratory Results - last 24 hr 05/03/23 05/04/23 05/04/23 09:20 06:10 06:10 WBC 10.50 RBC 4.16 Hgb 11.8 D Hct 35.8 L MCV 86 MCH 28.4 MCHC 33.0 RDW 15.9 H Plt Count 144 MPV 10.8 Immature Gran % 0.3 Neutrophils % 78.3 Lymphocytes % 14.4 Monocytes % 6.6 Eosinophils % 0.2 Basophils % 0.2 Nucleated RBC % 0.0 Absolute Neutrophils 8.23 H Absolute Lymphocytes 1.51 Absolute Monocytes 0.69 Absolute Eosinophils 0.02 Absolute Basophils 0.02 VBG pH 7.43 H VBG pCO2 47 VBG pO2 64 VBG HCO3 31 H VBG Total CO2 28 VBG O2 Saturation 93 VBG Base Excess 7 H VBG Lactate 1.7 H Sodium 141 Potassium 4.2 Chloride 104 Carbon Dioxide 33.8 H Anion Gap 3.2 BUN 21 H Creatinine 0.8 Est GFR (CKD-EPI 2020) 83.26 Glucose 140 H Calcium 9.2 Magnesium Cancelled 1.9
--- NOTE | 2023-05-04 09:47 | W.PM.DS.N ---
Date of service: 05/04/23 Time of Service: 09:58 DS: Diagnosis Discharge Diagnosis (1) Acute on chronic respiratory failure with hypoxia and hypercapnia: Status: Acute (2) Aspiration pneumonia: Status: Acute (3) Chronic systolic (congestive) heart failure: Status: Chronic (4) Esophageal stricture: Status: Chronic (5) Insulin dependent type 2 diabetes mellitus: Status: Chronic (6) Bipolar 1 disorder: Status: Chronic Discharge Plan Disposition Patient Disposition: Home Condition: Improving Discharge Details Reason For Visit: Respiratory failure with hypoxia and hypercapnia, Admit Date/Time: 05/03/23 05:28 Admit Provider: Geronimo Denney Attending Provider: Geronimo Denney Primary Care Provider: Ana Gillespie Hospital Course Hospital Course: This ?62-year-old female patient with a past medical history of aspiration pneumonia, type II diabetes, NSTEMI, bipolar disorder, Farrell's esophagus, esophageal stricture with recent EGD and dilatation and ligation of peptic esophageal stricture presented to the ED at [facility] via EMS on 05/03/2023 with complaint of shortness of breath, cough starting the day before. She does have a PEG tube for feeding because of difficulty swallowing. She does eat normally but does have multiple medicines either in liquid form or administered through the PEG tube.The patient is on 2 L of oxygen at baseline with sat in the 70?s on arrival of EMS, received a DuoNeb and was increased to 6 L? for sat in the mid 90?s. She then came up to the mid 90s. On arrival to the ED, the patient denied fever, chills or chest pain. The patient was seen by the ED provider after a previous dilation and admitted for aspiration pneumonia requiring IV antibiotic 2 to 3 month ago. The patient still needed 6l of oxygen in the ED, had ronchorous breath sounds but remained stable. The patient received a Duoneb and Solu-medrol. Chest XR showed ?notable right-sided infiltrate. Lactate was 1.5 without leukocytosis. The patient received Unasyn and was started on BiPAP ?which was well tolerated. The patient improved as per VBG results. The ED provider discussed the case with the hospitalist and the patient was admitted to the medical surgical floor with telemetry for evaluation and management of acute on chronic respiratory failure with hypoxia and hypercapnia and aspiration pneumonia. During the stay the patient remained afebrile, received IV hydration. The patient diabetes was manage with fasting, bedtime and before meals glucose reading with insulin coverage as per sliding scale . The patient received tube feeding a which she will continue at home. IV Unasyn was continued and upon discharge the patient will be on oral Augmentin for 4 more days for a total of 5 days of antibiotics. She remained afebrile without leukocytosis, on RA with sat 94% with a normal blood pressure when the IVF were stopped. The patient will call her PCP and have a follow-up on Wednesday. Home Meds and New Rx's Prescriptions: New amoxicillin-pot clavulanate 875-125 mg tablet 1 tab PO Q12H Qty: 7 0RF Continued bupropion HCl 100 mg tablet 300 mg PO DAILY Patient Comments: via g-tube, per pcp ov notes 12/09/22 RH protein Powder See Rx Instructions PO .COMPLEX Rx Instructions: 2 scoops daily gabapentin 300 mg capsule 900 mg feeding tube TID Patient Comments: via g-tube Entresto 24-26 mg tablet 1 tab feeding tube BID Patient Comments: via g-tube Jardiance 10 mg tablet 10 mg PO DAILY quetiapine 100 mg tablet 100 mg PO QHS atorvastatin 80 mg tablet 80 mg PO DAILY valproic acid (as sodium salt) 250 mg/5 mL solution 300 mg PO TID Rx Instructions: 6mls TID metoprolol succinate 50 mg tablet extended release 24 hr 25 mg PO BID sucralfate 1 gram tablet 1 g PO QID Patient Comments: TAKE ONE TABLET BY MOUTH FOUR TIMES A DAY folic acid 1 mg Tablet 1 mg PO DAILY Qty: 0 0RF ferrous sulfate 300 mg (60 mg iron)/5 mL liquid 300 mg feeding tube .QOD Patient Comments: TAKE 5ML VIA G-TUBE EVERY OTHER DAY Humulin N NPH Insulin KwikPen 100 unit/mL (3 mL) insulin pen See Rx Instructions .ROUTE .COMPLEX Qty: 0 0RF Rx Instructions: 20 units at 11 am followed by sliding scale at 3 pm (5 units for blood sugar of 250 plus 1 additional unit for any 20 points that the blood sugar is above 250) ibuprofen 100 mg/5 mL suspension 600 mg PO Q8H PRN acetaminophen 500 mg/15 mL liquid 1,000 mg PO Q8H PRNQty: 237 2RF nystatin 100,000 unit/gram powder 1 applic TOPICAL TID PRN Patient Comments: APPLY TO BUTTOCKS THREE TIMES A DAY NEEDED pantoprazole [address] for susp in packet 40 mg G-tube DAILY Patient Comments: Take 1 packet via g-tube twice a day Administer in 10 mL of apple juice via g-tub, then follow with another 10 mL. nystatin 100,000 unit/gram cream TOPICAL TID PRN Patient Comments: APPLY A SMALL AMOUNT TO AFFECTED AREA(S) ON BUTTOCKS THREE TIMES A DAY NEEDED melatonin 3 mg tablet 9 mg feeding tube HS Patient Comments: TAKE THREE TABLETS VIA G-TUBE EVERY NIGHT DIRECTED insulin glargine [Lantus Solostar U-100 Insulin] 100 unit/mL (3 mL) insulin pen 10 unit SUBCUT QPM Patient Comments: INJECT 10 UNITS UNDER THE SKIN NIGHTLY DIRECTED Discharge Instructions Referrals: Ana Gillespie [Primary Care Provider] - 05/07/23 8:00 am (F/u this week s/p admission for Acute on chronic respiratory failure with hypoxia and hypercapnia, aspiration pneumonia vs pneumonitis) Activity:: Activity as Tolerated Equipment/Supplies:: Oxygen (L/min Below) Diet:: As per tube feeding regimen 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 Discharge Orders Discharge Orders: Discharge Order (Routine); Ordered 05/04/23 Ordered By: Lindsey Esparza DS: Summary Time Spent with Patient providing and/or coordinating discharge services: Greater than 30 minutes Status at Discharge Functional status at discharge: uses cane/walker Overall status at discharge: patient is back to baseline Mental Status: mental status grossly normal and other Speech and Movement: speech and movement normal Mood: anxious mood and other Affect: animated Exam Narrative Exam Narrative: Constitutional The patient is sitting in chair comfortable and cooperative and anxious during the interview. The patient is without acute distress HENMT: Head is atraumatic, normocephalic. Facial structures with normal appearance Eyes: Well aligned, intact ROM Neck: Normal ROM, no meningeal signs Neuro:alert and oriented to self, person, place, time and situation. No neurological focal deficit Chest:Chest is symmetrical and normal appearance Resp: On RA, normal respiratory pattern, speaks in full sentences, unlabored breathing, clear lung bilaterally with diminished right mid-lower lobes Cardio: regular rhythm telemetry SR HR 68, S1, S2, bilateral radial and dorsalis pedis pulses are positive, palpable GI: Abdomen is not distended, soft and non tender, bowel sounds are present : Negative Costovertebral angle tenderness, no bladder distension Back/spine/Pelvis: No back tenderness, normal alignment Extremities: strength 5/5 to bilateral lower and upper extremities Psych: RASS 0, exalted mood and anxious affect. Psych Mental Status: mental status grossly normal and other Speech and Movement: speech and movement normal Mood: anxious mood and other Affect: animated DS: Data Vitals/I&O Vitals and I&O: Vital Signs Temperature 36.4 C L 05/04/23 07:25 Temperature Source Tympanic 05/04/23 07:25 Pulse 55 L 05/04/23 07:25 Pulse Rhythm Regular 05/03/23 20:15 Pulse 84 05/03/23 06:10 Respiratory Rate 18 05/04/23 07:25 Respiratory Effort Normal, Non-Labored 05/03/23 20:15 Respiratory Depth Normal 05/03/23 20:15 Respiratory Pattern Normal 05/03/23 20:15 Blood Pressure 103/58 L 05/04/23 07:25 Blood Pressure Mean 107 05/03/23 06:00 Blood Pressure Position Sitting 05/03/23 02:00 Pulse Oximetry 99 05/04/23 08:10 Oxygen Delivery Method Room Air 05/04/23 08:10 Oxygen Flow Rate 0 05/04/23 08:10 Fraction of Inspired Oxygen (FIO2) 35 05/03/23 08:15 Pain Level 0 05/04/23 07:25 Comment 35% fio2 rescue bipap in place 05/03/23 06:36 Intake & Output 05/03/23 05/03/23 05/04/23 11:59 23:59 11:59 Intake Total 1100 / 2820 1720 / 2820 251.25 / 251.25 Output Total 0 / 900 900 / 900 Balance 1100 / 1920 820 / 1920 251.25 / 251.25 Weight 72.484 kg Intake: IV 1100 / 2400 1300 / 2400 251.25 / 251.25 Oral 0 / 0 0 / 0 Intake, Tube Feeding Amount 420 / 420 Output: Urine 0 / 900 900 / 900 Stool 0 / 0 0 / 0 Other: Urine Color Yellow Yellow Urine Appearance Clear Clear Clear Urine Odor Normal Normal Comment 600 in purewick, 200 in commode Stool Size Smear Stool Characteristics Soft Voiding Methods Bedside Commode Bedside Commode Data Completed and Pending Labs on day of discharge: Labs from last 24 hours 05/04/23 05/04/23 06:10 06:10 WBC 10.50 RBC 4.16 Hgb 11.8 D Hct 35.8 L MCV 86 MCH 28.4 MCHC 33.0 RDW 15.9 H Plt Count 144 MPV 10.8 Immature Gran % 0.3 Neutrophils % 78.3 Lymphocytes % 14.4 Monocytes % 6.6 Eosinophils % 0.2 Basophils % 0.2 Nucleated RBC % 0.0 Absolute Neutrophils 8.23 H Absolute Lymphocytes 1.51 Absolute Monocytes 0.69 Absolute Eosinophils 0.02 Absolute Basophils 0.02 Sodium 141 Potassium 4.2 Chloride 104 Carbon Dioxide 33.8 H Anion Gap 3.2 BUN 21 H Creatinine 0.8 Est GFR (CKD-EPI 2020) 83.26 Glucose 140 H Calcium 9.2 Magnesium 1.9 Cancelled Preliminary micro results at discharge 05/03/23 03:38 Blood Culture - Preliminary Blood NO GROWTH 24 HOURS 05/03/23 02:56 Blood Culture - Preliminary Blood NO GROWTH 24 HOURS PFSH All Active Problems (Updated 05/03/23 @ 05:42 by Geronimo Denney) Acute on chronic respiratory failure with hypoxia and hypercapnia (Acute) Pneumonitis (Acute) Aspiration pneumonia (Acute) Gastrostomy tube obstruction (Acute) Lab test positive for detection of COVID-19 virus (Acute) PEG (percutaneous endoscopic gastrostomy) status (Chronic) Esophageal stricture (Chronic) Chronic systolic (congestive) heart failure (Chronic) 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) Aspiration pneumonia (Acute) Acute respiratory failure with hypoxia (Acute) COVID (Acute) Depression (Chronic) Bipolar 1 disorder (Chronic) Diabetes (Chronic) Cholelithiasis (Chronic) Ventral hernia (Acute) Leukocytosis (Acute) Pleural effusion (Acute) Black tarry stools (Acute) Chronic diarrhea (Acute) Farrell's esophagus (Chronic) Esophageal ulcer with bleeding (Acute) Erosive esophagitis (Acute) Farrell's 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 (Acute) Hyperplastic colon polyp (Acute ~06/10/21) Tubular adenoma (Acute ~06/10/21) Neuroleptic induced parkinsonism (Acute) Drug-induced parkinsonism (Acute) Anemia (Chronic) Status post hip surgery (Acute) H/O: pneumonia (Acute) Abnormal chest xray (Acute) Pre-op evaluation (Acute) Medical History (Updated 05/03/23 @ 05:42 by Geronimo Denney) Stress-induced cardiomyopathy acute onset managed at [facility] 08/30 pressors, EF 25%, has since recovered RH NSTEMI (non-ST elevated myocardial infarction) Per pt. states she did not have a heart attack Acute cardiogenic pulmonary edema Acute metabolic encephalopathy Bilateral pneumonia Hypokalemia Closed fracture of neck of left femur s/p Percutaneous Screw Fixation 08/09/22 Constipation Diabetes mellitus type 2 in obese Chronic iron deficiency anemia ETOH abuse Poorly controlled diabetes mellitus Chronic pancreatitis due to acute alcohol intoxication Alcohol abuse Per pt. states she has never had an issues with any subtances History of pilonidal cyst Anxiety Surgical History History of total left hip arthroplasty (01/19/23) S/P laparoscopic procedure cyst removed from stomach per patient S/P surgical removal of pilonidal cyst History of esophagogastroduodenoscopy (EGD) (~06/10/21) History of colonoscopy with polypectomy (~06/10/21) History of hysterectomy History of tonsillectomy History of section Family History Father Hypertension Diabetes Heart disease Social History Smoking/Tobacco Use Status: Never Smoking risk assessment performed?: Yes Alcohol Intake: never Drug use: Never Substance use type: does not use Household members: spouse Housing: house Number of Children: 2 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
[2023-05-04 11:08] VITALS: BP 105/62; PULSE 70; RESP 18; TEMP 36.9; O2SAT 100
--- NOTE | 2023-05-04 16:41 | CHAPLAIN ---
Jennifer asked right away if I could get the doctor in to discharge he or let her nurse know that she is ready to go, and said she'd been waiting a long time. I told her I'm not involved with medical decisions but would let her nurse know. Her nurse was aware of the situation. Jennifer's , Campos, was with her. He said I don't l know how much longer I can keep her from leaving. Jennifer usually provides care for Campos, and she was anxious to get home to do that.
== END 2023-05-04 13:00 | disposition home or self-care (01) | DRG 177 ==
LOC: ER 06:34 → MS 06:36
PROVIDERS: Internal Medicine; Admitting Provider Family Medicine; Emergency Provider Student in an Organized Health Care Education/Training Program; PCP Nurse Practitioner Family; Visit Provider Family Medicine
DX: J69.0 Pneumonitis due to inhalation of food and vomit (principal); J96.21 Acute and chronic respiratory failure with hypoxia; J96.22 Acute and chronic respiratory failure with hypercapnia; I50.22 Chronic systolic (congestive) heart failure; I42.9 Cardiomyopathy, unspecified; G21.11 Neuroleptic induced parkinsonism; E11.9 Type 2 diabetes mellitus without complications; K22.2 Esophageal obstruction; F31.9 Bipolar disorder, unspecified; K22.70 Barrett's esophagus without dysplasia; D64.9 Anemia, unspecified; I25.2 Old myocardial infarction; F41.9 Anxiety disorder, unspecified; D50.9 Iron deficiency anemia, unspecified; Z96.642 Presence of left artificial hip joint; K59.00 Constipation, unspecified; F10.10 Alcohol abuse, uncomplicated; Z79.4 Long term (current) use of insulin
CPT/HCPCS: 00123; 36415; 80048; 80053; 82805; 84145; 85027; 87040; 87637; 96365; 96375; 99285; J1650; 71045; 83605; 83735; 83880; 84443; 85025; 85610; 85730; 94660; 94760; 99223; 99239; J0295; J2930; J7620

== ENCOUNTER 2023-05-08 13:56 | Emergency (ER) | payer MEDICAID, SELFPAY ==
[2023-05-08 13:58] VITALS: BP 166/50; PULSE 80; RESP 16; TEMP 36.6; O2SAT 97
--- NOTE | 2023-05-08 14:31 | W.ED.GENAD ---
Discharge Plan Disposition Patient Disposition: Home Discharge Details Chief Complaint: GenMedical Clinical Impression: Gastrojejunostomy tube dislodgement Primary Care Provider: Ana Gillespie ED Provider: Tamiko Wasserman Home Meds and New Rx's Prescriptions: No Action bupropion HCl 100 mg tablet 300 mg PO DAILY Patient Comments: via g-tube, per pcp ov notes 12/09/22 RH protein Powder See Rx Instructions PO .COMPLEX Rx Instructions: 2 scoops daily gabapentin 300 mg capsule 900 mg feeding tube TID Patient Comments: via g-tube Entresto 24-26 mg tablet 1 tab feeding tube BID Patient Comments: via g-tube Jardiance 10 mg tablet 10 mg PO DAILY quetiapine 100 mg tablet 100 mg PO QHS atorvastatin 80 mg tablet 80 mg PO DAILY valproic acid (as sodium salt) 250 mg/5 mL solution 300 mg PO TID Rx Instructions: 6mls TID metoprolol succinate 50 mg tablet extended release 24 hr 25 mg PO BID sucralfate 1 gram tablet 1 g PO QID Patient Comments: TAKE ONE TABLET BY MOUTH FOUR TIMES A DAY folic acid 1 mg Tablet 1 mg PO DAILY Qty: 0 0RF ferrous sulfate 300 mg (60 mg iron)/5 mL liquid 300 mg feeding tube .QOD Patient Comments: TAKE 5ML VIA G-TUBE EVERY OTHER DAY Humulin N NPH Insulin KwikPen 100 unit/mL (3 mL) insulin pen See Rx Instructions .ROUTE .COMPLEX Qty: 0 0RF Rx Instructions: 20 units at 11 am followed by sliding scale at 3 pm (5 units for blood sugar of 250 plus 1 additional unit for any 20 points that the blood sugar is above 250) ibuprofen 100 mg/5 mL suspension 600 mg PO Q8H PRN acetaminophen 500 mg/15 mL liquid 1,000 mg PO Q8H PRNQty: 237 2RF nystatin 100,000 unit/gram powder 1 applic TOPICAL TID PRN Patient Comments: APPLY TO BUTTOCKS THREE TIMES A DAY NEEDED pantoprazole [address] for susp in packet 40 mg G-tube DAILY Patient Comments: Take 1 packet via g-tube twice a day Administer in 10 mL of apple juice via g-tub, then follow with another 10 mL. nystatin 100,000 unit/gram cream 1 applic TOPICAL TID PRN Patient Comments: APPLY A SMALL AMOUNT TO AFFECTED AREA(S) ON BUTTOCKS THREE TIMES A DAY NEEDED melatonin 3 mg tablet 9 mg feeding tube HS Patient Comments: TAKE THREE TABLETS VIA G-TUBE EVERY NIGHT DIRECTED insulin glargine [Lantus Solostar U-100 Insulin] 100 unit/mL (3 mL) insulin pen 10 unit SUBCUT QPM Patient Comments: INJECT 10 UNITS UNDER THE SKIN NIGHTLY DIRECTED ondansetron HCl 4 mg tablet 8 mg feeding tube Q8H PRN Patient Comments: TAKE ONE TABLET VIA G-TUBE EVERY 8 HOURS NEEDED Discharge Instructions Additional Instructions: Please keep Mcrae catheter in place in your stoma and use it as you would your G-tube. Flush regularly. Please follow-up with [facility] for formal replacement of appropriate tubing. Return to the emergency department if Mcrae catheter comes out. Medical Decision Making Emergent evaluation of G-tube dysfunction. Tube fell out. Patient does not have replacement or backup tube. We do not have G-tubes in stock. A 16 Macedonian Mcrae catheter was placed without complication was instructed to call [facility] where they normally get their G-tubes changed to schedule appointment for exchange. She should be able to use the Mcrae catheter without difficulty in the interim. Return precautions advised. Medical Records Medical records reviewed: Yes I reviewed the patient's medical records. HPI General Date/Time Provider Initiated Documentation: 05/08/23 14:06. Limitations to Documentation: no limitations. Information obtained by: patient. HPI Narrative: 62-year-old female with past medical history of diabetes, bipolar, esophageal stricture, G-tube dependence presents for evaluation after her G-tube fell out today. Occurred just prior to arrival. They have not tried to put the tube back in. She denies any pain or bleeding. Related Data Home Medications Medication Instructions Recorded Confirmed sucralfate 1 gram tablet 1 g PO QID 08/08/22 05/08/23 folic acid 1 mg tablet 1 mg PO DAILY #0 tabs 08/10/22 05/08/23 atorvastatin 80 mg tablet 80 mg PO DAILY 11/18/22 05/08/23 empagliflozin 10 mg tablet 10 mg PO DAILY 11/18/22 05/08/23 (Jardiance) gabapentin 300 mg capsule 900 mg feeding tube TID 11/18/22 05/08/23 metoprolol succinate 50 mg 25 mg PO BID 11/18/22 05/08/23 tablet,extended release 24 hr quetiapine 100 mg tablet 100 mg PO QHS 11/18/22 05/08/23 sacubitril 24 mg-valsartan 26 mg 1 tab feeding tube BID 11/18/22 05/08/23 tablet (Entresto) valproic acid (as sodium salt) 250 300 mg PO TID 11/18/22 05/08/23 mg/5 mL oral solution bupropion HCl 100 mg tablet 300 mg PO DAILY 12/16/22 05/08/23 protein See Rx Instructions PO .COMPLEX 12/16/22 05/08/23 acetaminophen 500 mg/15 mL oral 1,000 mg (30 mL) PO Q8H PRN #237 mL 01/19/23 05/08/23 liquid ferrous sulfate 300 mg (60 mg 300 mg feeding tube .QOD 01/31/23 05/08/23 iron)/5 mL oral liquid insulin NPH isoph U-100 human 100 See Rx Instructions .Route 02/28/23 05/08/23 unit/mL (3 mL) subcutaneous pen .COMPLEX #0 mL (Humulin N NPH U-100 Insulin KwikPen) ibuprofen 100 mg/5 mL oral 600 mg PO Q8H PRN 04/04/23 05/08/23 suspension nystatin 100,000 unit/gram topical 1 applic topical TID PRN 05/03/23 05/08/23 cream nystatin 100,000 unit/gram topical 1 applic topical TID PRN 05/03/23 05/08/23 powder pantoprazole 40 mg granules 40 mg G-tube DAILY 05/03/23 05/08/23 delayed-release for susp in packet insulin glargine 100 unit/mL (3 10 unit subcut QPM 05/04/23 05/08/23 mL) subcutaneous pen (Lantus Solostar U-100 Insulin) melatonin 3 mg tablet 9 mg feeding tube HS 05/04/23 05/08/23 ondansetron HCl 4 mg tablet 8 mg feeding tube Q8H PRN 05/08/23 05/08/23 Previous Rx's Medication Instructions Recorded folic acid 1 mg tablet 1 mg PO DAILY #0 tabs 08/10/22 acetaminophen 500 mg/15 mL oral 1,000 mg (30 mL) PO Q8H PRN #237 mL 01/19/23 liquid insulin NPH isoph U-100 human 100 See Rx Instructions .Route 02/28/23 unit/mL (3 mL) subcutaneous pen .COMPLEX #0 mL (Humulin N NPH U-100 Insulin KwikPen) Allergies Allergy/AdvReac Type Severity Reaction Status Date / Time metformin AdvReac Unknown Diarrhea Verified 05/08/23 14:14 meperidine AdvReac gi upset Verified 05/08/23 14:14 General Stated Complaint: GenMedical ASHANTI: 3 PFSH All Active Problems (Updated 05/08/23 @ 15:04 by Tamiko Wasserman MD) Gastrojejunostomy tube dislodgement (Acute) Pneumonitis (Acute) Aspiration pneumonia (Acute) Gastrostomy tube obstruction (Acute) Lab test positive for detection of COVID-19 virus (Acute) PEG (percutaneous endoscopic gastrostomy) status (Chronic) 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) Acute respiratory failure with hypoxia (Acute) COVID (Acute) Depression (Chronic) Bipolar 1 disorder (Chronic) Diabetes (Chronic) Cholelithiasis (Chronic) Ventral hernia (Acute) Leukocytosis (Acute) Pleural effusion (Acute) Black tarry stools (Acute) Chronic diarrhea (Acute) Farrell's esophagus (Chronic) Esophageal ulcer with bleeding (Acute) Erosive esophagitis (Acute) Farrell's 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 (Acute) Hyperplastic colon polyp (Acute ~06/10/21) Tubular adenoma (Acute ~06/10/21) Neuroleptic induced parkinsonism (Acute) Drug-induced parkinsonism (Acute) Anemia (Chronic) Status post hip surgery (Acute) H/O: pneumonia (Acute) Abnormal chest xray (Acute) Pre-op evaluation (Acute) Medical History (Updated 05/08/23 @ 15:04 by Tamiko Wasserman MD) Esophageal stricture Chronic systolic (congestive) heart failure Aspiration pneumonia Stress-induced cardiomyopathy [place] [facility] [place] press[place], EF 25%, has since recovered RH NSTEMI (non-ST elevated myocardial infarction) Per pt. states she did not have a heart attack Acute cardiogenic pulmonary edema Acute metabolic encephalopathy Bilateral pneumonia Hypokalemia Closed fracture of neck of left femur s/p Percutaneous Screw Fixation 08/09/22 Constipation Diabetes mellitus type 2 in obese Chronic iron deficiency anemia ETOH abuse Poorly controlled diabetes mellitus Chronic pancreatitis due to acute alcohol intoxication Alcohol abuse Per pt. states she has never had an issues with any subtances History of pilonidal cyst Anxiety Surgical History (Updated 05/05/23 @ 00:06 by HELDER SRIVASTAVA) History of total left hip arthroplasty (01/19/23) S/P laparoscopic procedure cyst removed from stomach per patient S/P surgical removal of pilonidal cyst History of esophagogastroduodenoscopy (EGD) (~06/10/21) History of colonoscopy with polypectomy (~06/10/21) History of hysterectomy History of tonsillectomy History of section Family History Father Hypertension Diabetes Heart disease Social History Smoking/Tobacco Use Status: Never Smoking risk assessment performed?: Yes Alcohol Intake: never Drug use: Never Substance use type: does not use Household members: spouse Housing: house Number of Children: 2 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 no focal neurologic deficits Appropriate mood and affect Course Vital Signs Vital signs: Vital Signs Temperature 36.6 C 05/08/23 13:58 Pulse 80 05/08/23 13:58 Respiratory Rate 16 05/08/23 13:58 Blood Pressure 166/50 H 05/08/23 13:58 Pulse Oximetry 97 05/08/23 13:58 Temperature 36.6 C 05/08/23 13:58 Temperature Source Oral 05/08/23 13:58 Pulse 80 05/08/23 13:58 Respiratory Rate 16 05/08/23 13:58 Respiratory Effort Normal, Non-Labored 05/08/23 14:11 Blood Pressure 166/50 H 05/08/23 13:58 Pulse Oximetry 97 05/08/23 13:58 Oxygen Delivery Method Room Air 05/08/23 13:58 Oxygen Flow Rate 0 05/08/23 13:58 Pain Level 10 05/08/23 13:58 Procedures Other Description: G-tube placement: 16 Macedonian Mcrae catheter was inserted via the stoma without complication pain or bleeding. Mcrae catheter balloon inserted with 10 cc saline, catheter tip placed
[2023-05-08 15:15] VITALS: BP 121/49; PULSE 66; RESP 16; O2SAT 95
--- NOTE | 2023-05-08 15:16 | NUR.NOTE ---
Nursing Note:16 Fr. Mcrae Catheter tube inserted into G tube stoma by MD. RN inflated Mcrae balloon w/ 10 mL of NS per MD order. Pt denies any discomfort during inflation. Device covered and secured w/ gauze and tape.
== END 2023-05-08 15:16 | disposition home or self-care (01) ==
PROVIDERS: Emergency Provider Emergency Medicine; PCP Nurse Practitioner Family
DX: K94.23 Gastrostomy malfunction (principal); I11.0 Hypertensive heart disease with heart failure; I50.22 Chronic systolic (congestive) heart failure; I25.2 Old myocardial infarction; Z79.4 Long term (current) use of insulin
CPT/HCPCS: 99283

== ENCOUNTER 2023-05-19 02:24 | Emergency (ER) | payer MEDICAID, SELFPAY ==
[2023-05-19] VITALS (22 sets, daily range): BP systolic 80–128; BP diastolic 32–72; PULSE 57–83; RESP 9–21; TEMP 36.3; O2SAT 92
--- NOTE | 2023-05-19 02:15 | DI.RAD_ITS ---
Exam(s) XR CHEST 2V PA LATERAL EXAM: XR CHEST 2V PA LATERAL CLINICAL HISTORY: shortness of breath, recent pneumonia TECHNIQUE: 2D digital imaging was performed of the chest. Two images were obtained. PA and lateral views were obtained. COMPARISON: CR XR CHEST 2V PA LATERAL from 12/17/2022 CR,XR XR PORTABLE CHEST AP from 05/03/2023 FINDINGS: MEDIASTINUM: There is a decrease in size in the right paratracheal area and decrease in the leftward tracheal deviation. HEART: Normal. PULMONARY VASCULATURE: Normal. LUNGS: No focal consolidating infiltrates are seen. There is mild diffuse prominence of the intersti tium which may reflect edema or pneumonitis. It has improved when compared to the examination from 1 07/04/2022. PLEURAL SPACE: No pleural effusion or pneumothorax. BONE:Within normal limits for the patient's age. OTHER FINDINGS:Normal. IMPRESSION: 1. Overall improvement in the interstitial process since 05/03/2023. This may reflect resolving roverto a or pneumonitis. Please correlate clinically. 2. No focal consolidating infiltrate. DATA REPOSITORY: RADIATION DOSE DELIVERED:
--- NOTE | 2023-05-19 02:15 | RT.EKG_ITS ---
APPROVED REPORT Exam: Resting ECG Reason for Exam: short of breath Patient Location: E HR:59 bpm ECG Measurements Heart Rate 59 AXIS NE 202 P 38 QRSd 87 QRS 44 QT 381 T 34 QTc 378 Conclusion Sinus bradycardia...rate< 60 limited interp due to artifact, repeat requested
--- NOTE | 2023-05-19 02:30 | RT.EKG_ITS ---
APPROVED REPORT Exam: Resting ECG Reason for Exam: shortness of breath Patient Location: E HR:59 bpm ECG Measurements Heart Rate 59 AXIS [place] 182 P 50 QRSd 90 QRS 65 QT 441 T 20 QTc 438 Conclusion Sinus bradycardia...rate< [address] segment or T wave abnormalities to suggest occlusive TX
[2023-05-19] MEDS: Albuterol/Ipratropium 3 ML UPD VIAL UPD (02:37)
[2023-05-19] MEDS: methylPREDNISolone SUCC 125 MG VIAL IVP (02:37)
[2023-05-19 03:01] LABS: Abs Immature Grans 0.05 10^3/uL (0.0-0.06); Absolute Basophil Count 0.04 10^3/uL (0.0-0.2); Absolute Eosinophil Count 0.27 10^3/uL (0.0-0.7); Absolute Lymphocyte Count 2.13 10^3/uL (1.2-3.4); Absolute Monocyte Count 0.69 10^3/uL (0.1-0.8); Absolute Neutrophil Count 4.54 10^3/uL (1.2-6.7); Basophils % 0.5; Eosinophils % 3.5; HCT 37.4 % (36.0-46.0); Immature Grans % 0.6; Lymphocytes % 27.6; MCHC 32.1 % (32.0-36.0); MCV 87 fL (80-95); MPV 10.8 fL (8.0-11.0); Monocytes % 8.9; Neutrophils % 58.9; Platelet Count 202 10^3/uL (130-400); RBC 4.29 10^6/uL (3.93-5.22); RDW 15.8 % (11.7-14.6); RDW-SD 50.1 fL; WBC 7.72 10^3/uL (4.4-10.8)
[2023-05-19 03:17] LABS: Lactate 1.8 mmol/L (0.6-1.4)
[2023-05-19 03:42] LABS: ALT 9 U/L (14-59); AST 9 U/L (15-37); Albumin 2.7 g/dL (3.4-5.0); Alkaline Phosphatase 85 U/L (46-116); Anion Gap 2.4 mmol/L (3-11); BUN 22 mg/dL (7-18); Bilirubin, Total 0.4 mg/dL (0.2-1.0); CO2 32.6 mmol/L (21.0-32.0); Calcium 9.6 mg/dL (8.5-10.1); Chloride 102 mmol/L (98-107); Glucose 71 mg/dL (74-106); Potassium 4.3 mmol/L (3.5-5.1); Sodium 137 mmol/L (136-145); Total Protein 6.6 g/dL (6.4-8.2)
[2023-05-19 04:10] LABS: Procalcitonin < 0.1 ng/mL
--- NOTE | 2023-05-19 05:01 | ED.GENADUL_ITS ---
HPI General Stated Complaint: SOB Mode of arrival: EMS. ASHANTI: 3 Date/Time Provider Initiated Documentation: 05/19/23 02:28. Limitations to Documentation: no limitations. Information obtained by: patient, EMS and old records reviewed. HPI Narrative: 62yo F with hx of chronic respiratory failure on baseline 2LNC, recurrent aspiration pneumonia after dilation of esophageal stricture, recent admission 05/03/23 for aspiration pneumonia, presenting for acute shortness of breath. History from patient, EMS, and [facility] record review. Has had persistent cough for the past several weeks. Today after a coughing spell suddenly felt like she could not catch her breath and like she was gasping and couldn't speak. Reassuring vital signs for EMS, given duoneb during transport. Aside from persistent cough has been feeling overall well since hospital discharge, no fevers, chest pain, LE edema, OH, orthopnea, malaise, or other concerns. Related Data Home Medications Medication Instructions Recorded Confirmed sucralfate 1 gram tablet 1 g PO QID 08/08/22 05/08/23 folic acid 1 mg tablet 1 mg PO DAILY #0 tabs 08/10/22 05/08/23 atorvastatin 80 mg tablet 80 mg PO DAILY 11/18/22 05/08/23 empagliflozin 10 mg tablet 10 mg PO DAILY 11/18/22 05/08/23 (Jardiance) gabapentin 300 mg capsule 900 mg feeding tube TID 11/18/22 05/08/23 metoprolol succinate 50 mg 25 mg PO BID 11/18/22 05/08/23 tablet,extended release 24 hr quetiapine 100 mg tablet 100 mg PO QHS 11/18/22 05/08/23 sacubitril 24 mg-valsartan 26 mg 1 tab feeding tube BID 11/18/22 05/08/23 tablet (Entresto) valproic acid (as sodium salt) 250 300 mg PO TID 11/18/22 05/08/23 mg/5 mL oral solution bupropion HCl 100 mg tablet 300 mg PO DAILY 12/16/22 05/08/23 protein See Rx Instructions PO .COMPLEX 12/16/22 05/08/23 acetaminophen 500 mg/15 mL oral 1,000 mg (30 mL) PO Q8H PRN #237 mL 01/19/23 05/08/23 liquid ferrous sulfate 300 mg (60 mg 300 mg feeding tube .QOD 01/31/23 05/08/23 iron)/5 mL oral liquid insulin NPH isoph U-100 human 100 See Rx Instructions .Route 02/28/23 05/08/23 unit/mL (3 mL) subcutaneous pen .COMPLEX #0 mL (Humulin N NPH U-100 Insulin KwikPen) ibuprofen 100 mg/5 mL oral 600 mg PO Q8H PRN 04/04/23 05/08/23 suspension nystatin 100,000 unit/gram topical 1 applic topical TID PRN 05/03/23 05/08/23 cream nystatin 100,000 unit/gram topical 1 applic topical TID PRN 05/03/23 05/08/23 powder pantoprazole 40 mg granules 40 mg G-tube DAILY 05/03/23 05/08/23 delayed-release for susp in packet insulin glargine 100 unit/mL (3 10 unit subcut QPM 05/04/23 05/08/23 mL) subcutaneous pen (Lantus Solostar U-100 Insulin) melatonin 3 mg tablet 9 mg feeding tube HS 05/04/23 05/08/23 ondansetron HCl 4 mg tablet 8 mg feeding tube Q8H PRN 05/08/23 05/08/23 Previous Rx's Medication Instructions Recorded folic acid 1 mg tablet 1 mg PO DAILY #0 tabs 08/10/22 acetaminophen 500 mg/15 mL oral 1,000 mg (30 mL) PO Q8H PRN #237 mL 01/19/23 liquid insulin NPH isoph U-100 human 100 See Rx Instructions .Route 02/28/23 unit/mL (3 mL) subcutaneous pen .COMPLEX #0 mL (Humulin N NPH U-100 Insulin KwikPen) Allergies Allergy/AdvReac Type Severity Reaction Status Date / Time metformin AdvReac Unknown Diarrhea Verified 05/19/23 02:33 meperidine AdvReac gi upset Verified 05/19/23 02:33 Review of Systems Narrative: see HPI PFSH All Active Problems (Updated 05/19/23 @ 05:06 by Samia Crawford MD) Cough (Acute) Gastrojejunostomy tube dislodgement (Acute) Pneumonitis (Acute) Aspiration pneumonia (Acute) Gastrostomy tube obstruction (Acute) Lab test positive for detection of COVID-19 virus (Acute) PEG (percutaneous endoscopic gastrostomy) status (Chronic) 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) Acute respiratory failure with hypoxia (Acute) COVID (Acute) Depression (Chronic) Bipolar 1 disorder (Chronic) Diabetes (Chronic) Cholelithiasis (Chronic) Ventral hernia (Acute) Leukocytosis (Acute) Pleural effusion (Acute) Black tarry stools (Acute) Chronic diarrhea (Acute) Farrell's esophagus (Chronic) Esophageal ulcer with bleeding (Acute) Erosive esophagitis (Acute) Farrell's 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 (Acute) Hyperplastic colon polyp (Acute ~06/10/21) Tubular adenoma (Acute ~06/10/21) Neuroleptic induced parkinsonism (Acute) Drug-induced parkinsonism (Acute) Anemia (Chronic) Status post hip surgery (Acute) H/O: pneumonia (Acute) Abnormal chest xray (Acute) Pre-op evaluation (Acute) Medical History (Updated 05/19/23 @ 05:06 by Samia Crawford MD) Esophageal stricture Chronic systolic (congestive) heart failure Aspiration pneumonia Stress-induced cardiomyopathy acute onset managed at [facility] 08/30 pressors, EF 25%, has since recovered RH NSTEMI (non-ST elevated myocardial infarction) Per pt. states she did not have a heart attack Acute cardiogenic pulmonary edema Acute metabolic encephalopathy Bilateral pneumonia Hypokalemia Closed fracture of neck of left femur s/p Percutaneous Screw Fixation 08/09/22 Constipation Diabetes mellitus type 2 in obese Chronic iron deficiency anemia ETOH abuse Poorly controlled diabetes mellitus Chronic pancreatitis due to acute alcohol intoxication Alcohol abuse Per pt. states she has never had an issues with any subtances History of pilonidal cyst Anxiety Surgical History (Updated 05/05/23 @ 00:06 by HELDER SRIVASTAVA) History of total left hip arthroplasty (01/19/23) S/P laparoscopic procedure cyst removed from stomach per patient S/P surgical removal of pilonidal cyst History of esophagogastroduodenoscopy (EGD) (~06/10/21) History of colonoscopy with polypectomy (~06/10/21) History of hysterectomy History of tonsillectomy History of section Family History Father Hypertension Diabetes Heart disease Social History Smoking/Tobacco Use Status: Never Smoking risk assessment performed?: Yes Alcohol Intake: never Drug use: Never Substance use type: does not use Household members: spouse Housing: house Number of Children: 2 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 ENT: ?MMM.? No oropharygeal lesions or exudate. Cardiac: ?RRR, no murmurs appreciated Resp: No respiratory distress. CTAB. Abd: ?Soft, non-distended, nontender : ?No suprapubic tenderness. Extremities: ?No deformities.? No peripheral edema. Neurologic: GCS 15. ? Moves all extremities freely against gravity Course Vital Signs Vital signs: Vital Signs Temperature 36.3 C L 05/19/23 02:28 Pulse 61 05/19/23 02:28 Respiratory Rate 20 05/19/23 02:28 Blood Pressure 102/72 05/19/23 02:28 Pulse Oximetry 92 05/19/23 02:28 Temperature 36.3 C L 05/19/23 02:28 Pulse 61 05/19/23 02:28 Respiratory Rate 20 05/19/23 02:31 Respiratory Effort Normal 05/19/23 02:31 Respiratory Depth Normal 05/19/23 02:31 Respiratory Pattern Normal 05/19/23 02:31 Blood Pressure 102/72 05/19/23 02:28 Pulse Oximetry 92 05/19/23 02:28 Oxygen Delivery Method Nasal Cannula 05/19/23 02:28 Oxygen Flow Rate 2 05/19/23 02:28 Pain Level 5 05/19/23 02:28 Lab/Test Results Lab/Test Results: Laboratory Tests Range/Units 05/19/23 05/19/23 02:40 03:13 WBC (4.4-10.8) 10^3/uL 7.72 RBC (3.93-5.22) 10^6/uL 4.29 Hgb (11.2-15.7) g/dL 12.0 Hct (36.0-46.0) % 37.4 MCV (80-95) fL 87 MCH (27.0-33.0) pg 28.0 MCHC (32.0-36.0) % 32.1 RDW (11.7-14.6) % 15.8 H Plt Count (130-400) 10^3/uL 202 MPV (8.0-11.0) fL 10.8 Immature Gran % 0.6 Neutrophils % 58.9 Lymphocytes % 27.6 Monocytes % 8.9 Eosinophils % 3.5 Basophils % 0.5 Nucleated RBC % (0.0-0.3) % 0.0 Absolute Neutrophils (1.2-6.7) 10^3/uL 4.54 Absolute Lymphocytes (1.2-3.4) 10^3/uL 2.13 Absolute Monocytes (0.1-0.8) 10^3/uL 0.69 Absolute Eosinophils (0.0-0.7) 10^3/uL 0.27 Absolute Basophils (0.0-0.2) 10^3/uL 0.04 VBG Lactate (0.6-1.4) mmol/L 1.8 H Sodium (136-145) mmol/L 137 Potassium (3.5-5.1) mmol/L 4.3 Chloride (98-107) mmol/L 102 Carbon Dioxide (21.0-32.0) mmol/L 32.6 H Anion Gap (3-11) mmol/L 2.4 L BUN (7-18) mg/dL 22 H Creatinine (0.55-1.02) mg/dL 1.0 Est GFR (CKD-EPI 2020) (mL/min/1.73m2) 63.70 Glucose (74-106) mg/dL 71 L Calcium (8.5-10.1) mg/dL 9.6 Total Bilirubin (0.2-1.0) mg/dL 0.4 AST (15-37) U/L 9 L ALT (14-59) U/L 9 L Alkaline Phosphatase (46-116) U/L 85 Total Protein (6.4-8.2) g/dL 6.6 Albumin (3.4-5.0) g/dL 2.7 L Procalcitonin ng/mL < 0.1 Medical Decision Making 62yo F with hx of chronic respiratory failure on baseline 2LNC, recurrent aspiration pneumonia after dilation of esophageal stricture, recent admission 05/03/23 for aspiration pneumonia, presenting for acute shortness of breath. History from patient, EMS, and [facility] record review. Has had persistent cough for the past several weeks. Today after a coughing spell suddenly felt like she could not catch her breath and like she was gasping and couldn't speak. Reassuring vital signs for EMS. Normal vital signs on arrival, satting well on baseline home 2L NC, does appear somewhat uncomfortable thought lungs sound clear and she has no increased work of breathing. Received duoneb en route, will give second duoneb here as well as dose of solumedrol. No chest pain, tachycardia, or pleuritic pain; would not puruse pulmonary embolism or acute coronary syndrome with dimer, CT PE, or troponins. EKG sinus bradycardia, no ischemic changes. Labs reviewed as below, CBC reassuring with no leukocytosis or anemia, CMP with no actionable abnormalities, procaliconin negative, lactate normal at 1.8. CXR independently reviewed, some persistent opacities improved compared to prior 05/03/23; agree with radiology read below. On reassessment she reports feeling much better, breathing back to baseline, appears comfortable, would like to go home. No indication of recurrent or worsening pneumonia and reassuring labatortoy workup. Not septic. No acute respiratory failure. No indication for admission. Suspect likely acid reflux and laryngospasm. Possibly some component of airway reactivity given possible improvement with nebs; given albuterol inhaler for home. Advised close PCP followup. Discharged home; discharge instructions and return precautions were reviewed with patient and son at bedside who verbalized understanding. All questions were answered and she is in full agreement with plan. Medical Records Medical records reviewed: Yes I reviewed the patient's medical records. Medical records narrative: H&P admission 05/03/23 Imaging Data Radiologic Study: Imaging: X-Ray Radiologist's impression: IMPRESSION: 1. Persistent bibasilar pulmonary opacities, improved since prior study but residual pneumonia not excluded. Follow-up as clinically warranted. 2. Additional findings as above. Lab Data Lab results reviewed: Yes I reviewed the patient's lab results. Labs: Laboratory Tests Range/Units 05/19/23 05/19/23 02:40 03:13 WBC (4.4-10.8) 10^3/uL 7.72 RBC (3.93-5.22) 10^6/uL 4.29 Hgb (11.2-15.7) g/dL 12.0 Hct (36.0-46.0) % 37.4 MCV (80-95) fL 87 MCH (27.0-33.0) pg 28.0 MCHC (32.0-36.0) % 32.1 RDW (11.7-14.6) % 15.8 H Plt Count (130-400) 10^3/uL 202 MPV (8.0-11.0) fL 10.8 Immature Gran % 0.6 Neutrophils % 58.9 Lymphocytes % 27.6 Monocytes % 8.9 Eosinophils % 3.5 Basophils % 0.5 Nucleated RBC % (0.0-0.3) % 0.0 Absolute Neutrophils (1.2-6.7) 10^3/uL 4.54 Absolute Lymphocytes (1.2-3.4) 10^3/uL 2.13 Absolute Monocytes (0.1-0.8) 10^3/uL 0.69 Absolute Eosinophils (0.0-0.7) 10^3/uL 0.27 Absolute Basophils (0.0-0.2) 10^3/uL 0.04 VBG Lactate (0.6-1.4) mmol/L 1.8 H Sodium (136-145) mmol/L 137 Potassium (3.5-5.1) mmol/L 4.3 Chloride (98-107) mmol/L 102 Carbon Dioxide (21.0-32.0) mmol/L 32.6 H Anion Gap (3-11) mmol/L 2.4 L BUN (7-18) mg/dL 22 H Creatinine (0.55-1.02) mg/dL 1.0 Est GFR (CKD-EPI 2020) (mL/min/1.73m2) 63.70 Glucose (74-106) mg/dL 71 L Calcium (8.5-10.1) mg/dL 9.6 Total Bilirubin (0.2-1.0) mg/dL 0.4 AST (15-37) U/L 9 L ALT (14-59) U/L 9 L Alkaline Phosphatase (46-116) U/L 85 Total Protein (6.4-8.2) g/dL 6.6 Albumin (3.4-5.0) g/dL 2.7 L Procalcitonin ng/mL < 0.1 Quality:SDOH Health Related Social Needs: No Data to Display Discharge Plan Disposition Patient Disposition: Home Discharge Details Clinical Impression: Cough Primary Care Provider: Ana Gillespie ED Provider: Samia Crawford Home Meds and New Rx's Prescriptions: No Action bupropion HCl 100 mg tablet 300 mg PO DAILY Patient Comments: via g-tube, per pcp ov notes 12/09/22 RH protein Powder See Rx Instructions PO .COMPLEX Rx Instructions: 2 scoops daily gabapentin 300 mg capsule 900 mg feeding tube TID Patient Comments: via g-tube Entresto 24-26 mg tablet 1 tab feeding tube BID Patient Comments: via g-tube Jardiance 10 mg tablet 10 mg PO DAILY quetiapine 100 mg tablet 100 mg PO QHS atorvastatin 80 mg tablet 80 mg PO DAILY valproic acid (as sodium salt) 250 mg/5 mL solution 300 mg PO TID Rx Instructions: 6mls TID metoprolol succinate 50 mg tablet extended release 24 hr 25 mg PO BID sucralfate 1 gram tablet 1 g PO QID Patient Comments: TAKE ONE TABLET BY MOUTH FOUR TIMES A DAY folic acid 1 mg Tablet 1 mg PO DAILY Qty: 0 0RF ferrous sulfate 300 mg (60 mg iron)/5 mL liquid 300 mg feeding tube .QOD Patient Comments: TAKE 5ML VIA G-TUBE EVERY OTHER DAY Humulin N NPH Insulin KwikPen 100 unit/mL (3 mL) insulin pen See Rx Instructions .ROUTE .COMPLEX Qty: 0 0RF Rx Instructions: 20 units at 11 am followed by sliding scale at 3 pm (5 units for blood sugar of 250 plus 1 additional unit for any 20 points that the blood sugar is above 2 50) ibuprofen 100 mg/5 mL suspension 600 mg PO Q8H PRN acetaminophen 500 mg/15 mL liquid 1,000 mg PO Q8H PRNQty: 237 2RF nystatin 100,000 unit/gram powder 1 applic TOPICAL TID PRN Patient Comments: APPLY TO BUTTOCKS THREE TIMES A DAY NEEDED pantoprazole [address] for susp in packet 40 mg G-tube DAILY Patient Comments: Take 1 packet via g-tube twice a day Administer in 10 mL of apple juice via g-tub, then follow with another 10 mL. nystatin 100,000 unit/gram cream 1 applic TOPICAL TID PRN Patient Comments: APPLY A SMALL AMOUNT TO AFFECTED AREA(S) ON BUTTOCKS THREE TIMES A DAY NEEDED melatonin 3 mg tablet 9 mg feeding tube HS Patient Comments: TAKE THREE TABLETS VIA G-TUBE EVERY NIGHT DIRECTED insulin glargine [Lantus Solostar U-100 Insulin] 100 unit/mL (3 mL) insulin pen 10 unit SUBCUT QPM Patient Comments: INJECT 10 UNITS UNDER THE SKIN NIGHTLY DIRECTED ondansetron HCl 4 mg tablet 8 mg feeding tube Q8H PRN Patient Comments: TAKE ONE TABLET VIA G-TUBE EVERY 8 HOURS NEEDED Discharge Instructions Instructions: Acute Cough (ED) Additional Instructions: Your symptoms may be due to acid reflux- please call your primary care doctor today to schedule an appointment within the next 3 days to discuss this and whether or not you should adjust your medications. You have been given an inhaler- you can use this at home if you are short of breath since it seemed to help your symptoms here. Return to the emergency department for new or worsening symptoms including fever, if you have difficulty breathing again, chest pain, feel like you are going to pass out, or if you have any other concerns. Referrals: Ana Gillespie [Primary Care Provider] -
--- NOTE | 2023-05-19 05:03 | DI.VRAD_ITS ---
PROCEDURE INFORMATION: Exam: XR Chest Exam date and time: 05/19/2023 3:20 AM Age: 62 years old Clinical indication: Shortness of breath; Patient HX: SOB, recent pneumonia TECHNIQUE: Imaging protocol: Radiologic exam of the chest. Views: 2 views. COMPARISON: CR XR PORTABLE CHEST AP 05/03/2023 3:00 AM FINDINGS: Lungs: Mild pulmonary vascular congestion. Persistent bibasilar pulmonary opacities, improved since prior study. Pleural spaces: No large pleural effusion seen. Heart/Mediastinum: Cardiac silhouette unchanged. Right paratracheal soft tissue density more prominent than on prior examination, possibly secondary to differences in technique. Cannot exclude mass lesion in this area. Consider follow-up. Bones/joints: Grossly unremarkable. IMPRESSION: 1. Persistent bibasilar pulmonary opacities, improved since prior study but residual pneumonia not excluded. Follow-up as clinically warranted. 2. Additional findings as above. Dictated and Authenticated by: Laila Gomez MD. Ordering:MARYCARMEN Gracia MD
[2023-05-19] MEDS: Albuterol HFA 8 GM 60 PUFF INH IH (05:30)
== END 2023-05-19 05:37 | disposition home or self-care (01) ==
PROVIDERS: Emergency Provider Student in an Organized Health Care Education/Training Program; PCP Nurse Practitioner Family
DX: R05.9 Cough, unspecified (principal); I11.0 Hypertensive heart disease with heart failure; I50.32 Chronic diastolic (congestive) heart failure; I25.2 Old myocardial infarction; E11.9 Type 2 diabetes mellitus without complications; Z79.4 Long term (current) use of insulin; Z79.899 Other long term (current) drug therapy
CPT/HCPCS: 36415; 80053; 84145; 93005; 94640; 96374; 99284; 71046; 83605; 85025; 93010; J2930; J7620

== ENCOUNTER 2023-05-21 14:56 | Outpatient (REF) | payer MEDICAID, SELFPAY | END 2023-05-21 14:57 | disposition home or self-care (01) | LOC: NCHCN 14:56 | PROVIDERS: PCP Nurse Practitioner Family; Visit Provider Nurse Practitioner Family | DX: L98.8 Other specified disorders of the skin and subcutaneous tissue (principal); L08.89 Other specified local infections of the skin and subcutaneous tissue | CPT/HCPCS: 87077; 87070; 87186; 87205 ==

== ENCOUNTER 2023-07-02 11:21 | Inpatient (IN) | payer MEDICAID, SELFPAY ==
[2023-07-02] VITALS (61 sets, daily range): BP systolic 98–160; BP diastolic 59–101; PULSE 88–150; RESP 0–44; TEMP 36.8–37; O2SAT 94–97
--- NOTE | 2023-07-02 11:15 | RT.EKG_ITS ---
APPROVED REPORT Exam: Resting ECG Reason for Exam: sob Patient Location: E HR:113 bpm ECG Measurements Heart Rate 113 AXIS CO 143 P 64 QRSd 89 QRS 84 QT 340 T 53 QTc 466 Conclusion Sinus tachycardia...rate> 99 Low voltage, extremity and precordial leads...extremity<0.5mV, precordial<1.0mV Probable anterolateral infarct, old...Q>35mS, abnrm ST-T, V2-V6,I,aVL Narrow complex sinus tachycardia at a rate of 113. Normal axis. Intervals within normal limits. Lo w voltage. Poor R wave progression. T wave flattening in aVL. Compared to prior dated last month l ow voltage is persistent. T wave flattening in aVL appears new. No acute injury pattern.
--- NOTE | 2023-07-02 11:28 | ED.GENADUL_ITS ---
Discharge Plan Disposition Patient Disposition: Admit to [facility] Discharge Details Clinical Impression: Acute respiratory failure with hypoxia and hypercarbia, Myocardial injury, COPD with acute exacerbation Admit Date/Time: 07/02/23 16:21 Admit Provider: Erin Damon Attending Provider: Erin Damon Primary Care Provider: Ana Gillespie ED Provider: Moustapha Abrams Discharge Data Discharge Date/Time-TO BE ENTERED AT DEPARTURE: 07/02/23 17:38 HPI General Date/Time Provider Initiated Documentation: 07/02/23 11:28 . HPI Narrative: MDM This is a wheezing and tachycardic 63-year-old female with reported recent diagnosis of pneumonia now with exacerbation of reactive airway disease for which she will receive prednisone and doxycycline. No pain out of proportion to suggest necrotizing soft tissue infection. Given chest pain will obtain ECG and troponin. No fevers to suggest pneumonia however will obtain chest x-ray. Not an alcoholic to suggest increased risk for aspiration pneumonia. I considered PE and DVT however patient has no leg pain and no history of PE nor DVT given her wheezes my suspicion was low for PE so well defer D-dimer. Will obtain a blood gas to assess for acidemia and hypercarbia. No trauma to the chest and equal breath sounds so doubt pneumothorax. Not hypotensive nor a dialysis patient to suggest tamponade. No history of emesis to suggest esophageal rupture. No tearing quality to suggest aortic dissection. Given increased oxygen use anticipate patient will require hospitalization. No significant lower extremity edema to suggest acute heart failure. Similarly patient does not appear volume overloaded. 12:30 PM CBC shows leukocytosis but no anemia. No thrombocytopenia. Venous blood gas shows acidemia and hypercarbia similar to prior dated last year. 1:15 PM Basic metabolic panel showing no MARILIN and no anion gap normal bicarbonate??not consistent with DKA. Very mild hyperglycemia. Chest x-ray read as signs of small airway disease. Myocardial injury new compared to prior. Patient has a history of stress-induced cardiomyopathy but her EF normalized. Will provide her with aspirin at 324mg. 1:45 PM I spoke with Dr. Damon who requested repeat venous gas and troponin and rescue BiPAP. 3:03 PM RT placed pt on BiPAP and she pulled good tidal volumes. Repeat venous blood gas showing resolved acidemia and improved hypercarbia. Troponin nearly doubled. I spoke with Dr. Damon who requested cards consult [facility]. 4pm I spoke to Dr. Zhang Pope from cards at [facility]. He was not concerned for ACS and felt that patient's presentation was more consistent w/demand. He advised trending trops & serial ECGs. He advised against heparinization and clopidogrel. 4:55 PM Repeat ECG showing narrow complex sinus tachycardia rate of 109. Normal axis. Intervals within normal limits. T wave flattening in aVL. Compared to prior dated earlier today no acute changes. T wave flattening in aVL is persistent. Low voltage is also persistent. Patient accepted to the hospitalist team. Chronic conditions affecting the care of the patient: Reactive airway disease History obtained from an outside historian: N/A External record review: N/A [Diagnostic interpretations performed by me: Per my independent interpretation chest x-ray shows: No acute cardiopulmonary process Per my independent interpretation EKG shows: Narrow complex sinus tachycardia at a rate of 113. Normal axis. Intervals within normal limits. Low voltage. Poor R wave progression. T wave flattening in aVL. Compared to prior dated last month low voltage is persistent. T wave flattening in aVL appears new. No acute injury pattern. ]Medications: Prednisone doxycycline Social determinants of health affecting disposition: N/A Management discussed with: Cardiology [facility] and Dr. Damon Treatment/interventions considered: N/A Response to therapies provided: Improved symptoms following rescue BiPAP HPI This is a 63-year-old female with history of reactive airway disease arrived to the emergency department via EMS in the setting of cough shortness of breath and wheezing. Patient reportedly was treated as an outpatient last week with pneumonia. She just finished 7 days of antibiotics. She does not recall which antibiotic she received. She is on 2 L of oxygen at night but on no oxygen during the day. She has had a cough. She denies fevers. She endorses a central chest pain. She denies nausea and vomiting. Chest pain does not radiate. It is not positional but is slightly worse when she coughs. Chest pain does not radiate. She denies any lower extremity swelling. No unintentional weight gain. She has no history of PEs or DVTs. She says her cough is nonproductive. She said no increased phlegm nor chills. She denies routine tobacco, ethanol, and illicits. Exam General: Uncomfortable-appearing in no acute distress speaking in complete sentences. Head: Normocephalic, atraumatic. Eye:Extraocular eye movements intact. No conjunctival injection. No scleral icterus. Ear, nose, mouth, throat: Grossly normal inspection. Normal voice, handling secretions normally. Neck: Trachea midline. Cardiovascular: Well-perfused distal extremities. Rapid regular rate Respiratory: Nonlabored respiration. Increased wheezing normal lung howard with prolonged expiratory phase. No significant tachypnea. No accessory muscle use. Gastrointestinal: Nondistended abdomen. Musculoskeletal: No significant lower extremity pitting edema. Moving all 4 extremities spontaneously. Skin: Normal for age and race, grossly normal temperature and turgor. No acute rash. Neurologic: Alert and appropriate, no apparent acute deficits. Psychiatric: Mood and manner are appropriate. Grooming and personal hygiene are appropriate. Related Data Home Medications Medication Instructions Recorded Confirmed sucralfate 1 gram tablet 1 g PO QID 08/08/22 07/02/23 folic acid 1 mg tablet 1 mg PO DAILY #0 tabs 08/10/22 07/02/23 atorvastatin 80 mg tablet 80 mg PO DAILY 11/18/22 07/02/23 empagliflozin 10 mg tablet 10 mg PO DAILY 11/18/22 07/02/23 (Jardiance) gabapentin 300 mg capsule 900 mg feeding tube TID 11/18/22 07/02/23 metoprolol succinate 50 mg 25 mg PO BID 11/18/22 07/02/23 tablet,extended release 24 hr quetiapine 100 mg tablet 100 mg PO QHS 11/18/22 07/02/23 sacubitril 24 mg-valsartan 26 mg 1 tab feeding tube BID 11/18/22 07/02/23 tablet (Entresto) valproic acid (as sodium salt) 250 300 mg PO TID 11/18/22 07/02/23 mg/5 mL oral solution bupropion HCl 100 mg tablet 300 mg PO DAILY 12/16/22 07/02/23 protein See Rx Instructions PO .COMPLEX 12/16/22 07/02/23 acetaminophen 500 mg/15 mL oral 1,000 mg (30 mL) PO Q8H PRN #237 mL 01/19/23 07/02/23 liquid ferrous sulfate 300 mg (60 mg 300 mg feeding tube .QOD 01/31/23 07/02/23 iron)/5 mL oral liquid insulin NPH isoph U-100 human 100 See Rx Instructions .Route 02/28/23 07/02/23 unit/mL (3 mL) subcutaneous pen .COMPLEX #0 mL (Humulin N NPH U-100 Insulin KwikPen) ibuprofen 100 mg/5 mL oral 600 mg PO Q8H PRN 04/04/23 07/02/23 suspension nystatin 100,000 unit/gram topical 1 applic topical TID PRN 05/03/23 07/02/23 cream nystatin 100,000 unit/gram topical 1 applic topical TID PRN 05/03/23 07/02/23 powder pantoprazole 40 mg granules 40 mg G-tube DAILY 05/03/23 07/02/23 delayed-release for susp in packet insulin glargine 100 unit/mL (3 10 unit subcut QPM 05/04/23 07/02/23 mL) subcutaneous pen (Lantus Solostar U-100 Insulin) melatonin 3 mg tablet 9 mg feeding tube HS 05/04/23 07/02/23 ondansetron HCl 4 mg tablet 8 mg feeding tube Q8H PRN 05/08/23 07/02/23 Previous Rx's Medication Instructions Recorded folic acid 1 mg tablet 1 mg PO DAILY #0 tabs 08/10/22 acetaminophen 500 mg/15 mL oral 1,000 mg (30 mL) PO Q8H PRN #237 mL 01/19/23 liquid insulin NPH isoph U-100 human 100 See Rx Instructions .Route 02/28/23 unit/mL (3 mL) subcutaneous pen .COMPLEX #0 mL (Humulin N NPH U-100 Insulin KwikPen) Allergies Allergy/AdvReac Type Severity Reaction Status Date / Time metformin AdvReac Unknown Diarrhea Verified 07/02/23 16:45 meperidine AdvReac gi upset Verified 07/02/23 16:45 General ASHANTI: 3 Medical Decision Making Quality:SDOH Health Related Social Needs: No Data to Display Critical Care Time Critical Care Time Critical Care Time: Yes Total Critical Care Time: 45 Attestation: acute hypoxic respiratory failure PFSH All Active Problems (Updated 07/02/23 @ 20:30 by Erin Damon MD) Discharge planning issues (Acute) DVT prophylaxis (Acute) HFrEF (heart failure with reduced ejection fraction) (Chronic) Bronchiolitis (Acute) NSTEMI (non-ST elevated myocardial infarction) (Acute) Per pt. 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) Acute respiratory failure with hypoxia (Acute) COVID (Acute) Depression (Chronic) Bipolar 1 disorder (Chronic) Diabetes (Chronic) Cholelithiasis (Chronic) Ventral hernia (Acute) Leukocytosis (Acute) Pleural effusion (Acute) Black tarry stools (Acute) Chronic diarrhea (Acute) Farrell's esophagus (Chronic) Esophageal ulcer with bleeding (Acute) Erosive esophagitis (Acute) Farrell's 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 (Acute) Hyperplastic colon polyp (Acute ~06/10/21) Tubular adenoma (Acute ~06/10/21) Neuroleptic induced parkinsonism (Acute) Drug-induced parkinsonism (Acute) Anemia (Chronic) Status post hip surgery (Acute) H/O: pneumonia (Acute) Abnormal chest xray (Acute) Pre-op evaluation (Acute) Medical History (Updated 07/02/23 @ 20:30 by Erin Damon MD) Esophageal stricture Chronic systolic (congestive) heart failure Aspiration pneumonia Stress-induced cardiomyopathy acute onset managed at [facility] 08/30 pressors, EF 25%, has since recovered RH Acute cardiogenic pulmonary edema Acute metabolic encephalopathy Bilateral pneumonia Hypokalemia Closed fracture of neck of left femur s/p Percutaneous Screw Fixation 08/09/22 Constipation Diabetes mellitus type 2 in obese Chronic iron deficiency anemia ETOH abuse Poorly controlled diabetes mellitus Chronic pancreatitis due to acute alcohol intoxication Alcohol abuse Per pt. states she has never had an issues with any subtances History of pilonidal cyst Anxiety Surgical History (Updated 05/05/23 @ 00:06 by HELDER SRIVASTAVA) History of total left hip arthroplasty (01/19/23) S/P laparoscopic procedure cyst removed from stomach per patient S/P surgical removal of pilonidal cyst History of esophagogastroduodenoscopy (EGD) (~06/10/21) History of colonoscopy with polypectomy (~06/10/21) History of hysterectomy History of tonsillectomy History of section Family History Father Hypertension Diabetes Heart disease Social History Smoking/Tobacco Use Status: Never Smoking risk assessment performed?: Yes Alcohol Intake: never Drug use: Never Substance use type: does not use Household members: spouse Housing: apartment Number of Children: 2 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
[2023-07-02 12:24] LABS: BE (Venous) 5 mmol/L (-2-3); HCO3 (Venous) 32 mmol/L (23-28); O2 Sat (Venous) 71 %; TCO2 (Venous) 30 mmol/L (24-29); pH (Venous) 7.27 (7.31-7.41); pO2 (Venous) 44 mmHg
[2023-07-02 12:25] LABS: pCO2 (Venous) 71 mmHg (41-51)
[2023-07-02 12:26] LABS: Abs Immature Grans 0.04 10^3/uL (0.0-0.06); Absolute Eosinophil Count 1.27 10^3/uL (0.0-0.7); Absolute Monocyte Count 0.78 10^3/uL (0.1-0.8); Absolute Neutrophil Count 10.99 10^3/uL (1.2-6.7); Basophils % 0.7; Eosinophils % 8.6; HCT 42.3 % (36.0-46.0); HGB 13.6 g/dL (11.2-15.7); Immature Grans % 0.3; Lymphocytes % 10.8; MCH 28.5 pg (27.0-33.0); MCHC 32.2 % (32.0-36.0); MCV 89 fL (80-95); MPV 10.8 fL (8.0-11.0); Monocytes % 5.3; Neutrophils % 74.3; Platelet Count 244 10^3/uL (130-400); RBC 4.78 10^6/uL (3.93-5.22); RDW 15.4 % (11.7-14.6); RDW-SD 49.7 fL; WBC 14.79 10^3/uL (4.4-10.8)
--- NOTE | 2023-07-02 12:27 | DI.RAD_ITS ---
Exam(s) XR PORTABLE CHEST AP EXAM: XR PORTABLE CHEST AP CLINICAL HISTORY: Cough shortness of breath TECHNIQUE: 2D digital imaging was performed of the chest. One image was obtained. An AP view was ob tained. COMPARISON: CR,XR XR PORTABLE CHEST AP from 05/03/2023 CR,XR XR CHEST 2V PA LATERAL from 05/19/2023 FINDINGS: MEDIASTINUM: Normal. HEART: Normal. PULMONARY VASCULATURE: Normal. LUNGS: There is bronchial wall thickening seen in the perihilar region bilaterally. PLEURAL SPACE: No pleural effusion or pneumothorax. BONE:Within normal limits for the patient's age. OTHER FINDINGS:Normal. IMPRESSION: Perihilar bronchial wall thickening which can be seen with bronchiolitis or small airways disease. DATA REPOSITORY: RADIATION DOSE DELIVERED:
[2023-07-02] MEDS: Normal Saline 500 ML IV (12:29)
[2023-07-02] MEDS: predniSONE 20 MG TAB 60 MG PO (12:30)
[2023-07-02] MEDS: Doxycycline Hyclate 100 MG CAP PO (12:30)
[2023-07-02] MEDS: Albuterol 2.5 MG/3 ML INH SOLN VIAL UPD (12:30)
[2023-07-02 12:42] LABS: Anion Gap 8.6 mmol/L (3-11); BUN 11 mg/dL (7-18); CO2 31.4 mmol/L (21.0-32.0); CREATININE 0.8 mg/dL (0.55-1.02); Calcium 9.8 mg/dL (8.5-10.1); Chloride 102 mmol/L (98-107); Estimated GFR 82.74 (mL/min/1.73m2); Glucose 113 mg/dL (74-106); Potassium 4.5 mmol/L (3.5-5.1); Sodium 142 mmol/L (136-145)
[2023-07-02 12:43] LABS: Troponin I 203 ng/L (< or =60)
[2023-07-02 13:17] LABS: COVID-19 PCR Negative (Negative); Influenza A PCR Negative (Negative); Influenza B PCR Negative (Negative); RSV PCR Negative (Negative)
[2023-07-02 13:19] LABS: Source Nasopharynx
[2023-07-02] MEDS: Aspirin 81 MG CHEW 324 MG CH (13:25)
[2023-07-02 14:48] LABS: BE (Venous) 2 mmol/L (-2-3); HCO3 (Venous) 29 mmol/L (23-28); O2 Sat (Venous) 72 %; TCO2 (Venous) 26 mmol/L (24-29); pCO2 (Venous) 58 mmHg (41-51); pH (Venous) 7.31 (7.31-7.41); pO2 (Venous) 42 mmHg
[2023-07-02 15:11] LABS: Troponin I 434 ng/L (< or =60)
--- NOTE | 2023-07-02 16:00 | RT.EKG_ITS ---
APPROVED REPORT Exam: Resting ECG Reason for Exam: trop + Patient Location: E HR:109 bpm ECG Measurements Heart Rate 109 AXIS MT 159 P 69 QRSd 76 QRS 84 QT 334 T 55 QTc 450 Conclusion Sinus tachycardia...rate> 99 Anterior infarct, old...Q >40mS, abnormal ST-T, V2-V5 Repeat ECG showing narrow complex sinus tachycardia rate of 109. Normal axis. Intervals within norm al limits. T wave flattening in aVL. Compared to prior dated earlier today no acute changes. T wav e flattening in aVL is persistent. Low voltage is also persistent.
--- NOTE | 2023-07-02 16:26 | W.PM.HP.N ---
Date of service: 07/02/23 Time of Service: 16:26 Assessment and Plan Assessment and plan (1) Acute respiratory failure with hypoxia and hypercarbia: Status: Acute Assessment and plan: in setting of reactive airways disease and bronchiolitis, likely sequela of COVID-19. I have ordered a procalcitonin but do not see that it's been done - asking the nursing to follow up. Continue scheduled + prn nebs, empiric ceftriaxone + doxycycline initiated in the ED, antitussives. Await sputum culture as well. Wean O2 as tolerated. Encourage pulmonary toilet. (2) Bronchiolitis: Status: Acute Assessment and plan: As above (3) NSTEMI (non-ST elevated myocardial infarction): Status: Acute Assessment and plan: Likely type 2 NSTEMI. Continue to monitor on tele, trend troponins, treat underlying pulmonary disease. Obtain an echocardiogram. Continue aspirin (4) Insulin dependent type 2 diabetes mellitus: Status: Chronic Assessment and plan: Anticipate steroid-induced hyperglycemia. Continue home basal bolus regimen in addition to our SSI. (5) HFrEF (heart failure with reduced ejection fraction): Status: Chronic Assessment and plan: As I understand it, the patient never did get a cardiac catheter[place] [facility] [place] she first presented with the LVEF of 35%. The EF did improve on the optimal medical therapy. Repeat echo. Monitor volume status. Continue home regimen. (6) DVT prophylaxis: Status: Acute Assessment and plan: SC enoxaparin (7) Discharge planning issues: Status: Acute Assessment and plan: Full code Initially admitted to the ICU but is already being downgraded to the medical surgical floor. History of Present Illness History of Present Illness Chief Complaint: Shortness of breath, chest pain Narrative: Ms Irivng is a 63 year old female with PMHx of CHFrEF (latest EF 50% in 11/30), esophageal stricture requiring frequent dilatations s/p PEG, prior episodes of aspiration pneumonia, IDDM2, who presented to [facility] ED today c/o SOB and CP for at least a week. She was on antibiotics for a week for a pneumonia (augmentin). It didn't help. She had COVID-19 3 weeks ago and the cough has not stopped since. It is productive of yellowish sputum, but she has also brought up brownish flakes. She also reports not being able to hear out of her R ear. The chest pain is associated with the cough and shortness of breath and was midcentral. The chest pain is not there now. In the ED, saturating 83% on RA and required 1L of O2. However, VBG showed pH of 7.27 with pCO2 of 71. She was placed on BiPAP with improvement of pH to 7.31 and pCO2 of 58. Her CXR revealed bronchiolitis. She was initiated on nebulizers, steroids, doxycycline. She did have a mild elevation of her troponin with no evidence of ACS by EKG. Troponin was 203. On repeat, it was 434. [facility] [place] was consulted and felt that this is likely demand ischemia and did not recommend heparinization or plavix. The patient did get aspirin in the ED. Hospitalist admission to the ICU was requested; however, upon arrival to the ICU, the patient is off of BiPAP and is doing better. She is being downgraded to the medical surgical floor. Review of Systems All systems reviewed & are unremarkable except as noted in HPI and below PFSH All Active Problems (Updated 07/02/23 @ 20:30 by Erin Damon MD) Discharge planning issues (Acute) DVT prophylaxis (Acute) HFrEF (heart failure with reduced ejection fraction) (Chronic) Bronchiolitis (Acute) NSTEMI (non-ST elevated myocardial infarction) (Acute) Per pt. 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) Acute respiratory failure with hypoxia (Acute) COVID (Acute) Depression (Chronic) Bipolar 1 disorder (Chronic) Diabetes (Chronic) Cholelithiasis (Chronic) Ventral hernia (Acute) Leukocytosis (Acute) Pleural effusion (Acute) Black tarry stools (Acute) Chronic diarrhea (Acute) Farrell's esophagus (Chronic) Esophageal ulcer with bleeding (Acute) Erosive esophagitis (Acute) Farrell's 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 (Acute) Hyperplastic colon polyp (Acute ~06/10/21) Tubular adenoma (Acute ~06/10/21) Neuroleptic induced parkinsonism (Acute) Drug-induced parkinsonism (Acute) Anemia (Chronic) Status post hip surgery (Acute) H/O: pneumonia (Acute) Abnormal chest xray (Acute) Pre-op evaluation (Acute) Medical History (Updated 07/02/23 @ 20:30 by Erin Damon MD) Esophageal stricture Chronic systolic (congestive) heart failure Aspiration pneumonia Stress-induced cardiomyopathy acute [place] [facility] [place] pressors, EF 25%, has since recovered RH Acute cardiogenic pulmonary edema Acute metabolic encephalopathy Bilateral pneumonia Hypokalemia Closed fracture of neck of left femur s/p Percutaneous Screw Fixation 08/09/22 Constipation Diabetes mellitus type 2 in obese Chronic iron deficiency anemia ETOH abuse Poorly controlled diabetes mellitus Chronic pancreatitis due to acute alcohol intoxication Alcohol abuse Per pt. states she has never had an issues with any subtances History of pilonidal cyst Anxiety Surgical History (Updated 05/05/23 @ 00:06 by HELDER SRIVASTAVA) History of total left hip arthroplasty (01/19/23) S/P laparoscopic procedure cyst removed from stomach per patient S/P surgical removal of pilonidal cyst History of esophagogastroduodenoscopy (EGD) (~06/10/21) History of colonoscopy with polypectomy (~06/10/21) History of hysterectomy History of tonsillectomy History of section Family History Father Hypertension Diabetes Heart disease Social History Smoking/Tobacco Use Status: Never Smoking risk assessment performed?: Yes Alcohol Intake: never Drug use: Never Substance use type: does not use Household members: spouse Housing: apartment Number of Children: 2 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 Meds Allergies and Home Medications Allergies Allergy/AdvReac Type Severity Reaction Status Date / Time metformin AdvReac Unknown Diarrhea Verified 07/02/23 16:45 meperidine AdvReac gi upset Verified 07/02/23 16:45 Home Medications Medication Instructions Recorded Confirmed Type sucralfate 1 gram tablet 1 g PO QID 08/08/22 07/02/23 History folic acid 1 mg tablet 1 mg PO DAILY #0 tabs 08/10/22 07/02/23 Rx atorvastatin 80 mg tablet 80 mg PO DAILY 11/18/22 07/02/23 History empagliflozin 10 mg tablet 10 mg PO DAILY 11/18/22 07/02/23 History (Jardiance) gabapentin 300 mg capsule 900 mg feeding tube TID 11/18/22 07/02/23 History metoprolol succinate 50 mg 25 mg PO BID 11/18/22 07/02/23 History tablet,extended release 24 hr quetiapine 100 mg tablet 100 mg PO QHS 11/18/22 07/02/23 History sacubitril 24 mg-valsartan 26 mg 1 tab feeding tube BID 11/18/22 07/02/23 History tablet (Entresto) valproic acid (as sodium salt) 250 300 mg PO TID 11/18/22 07/02/23 History mg/5 mL oral solution bupropion HCl 100 mg tablet 300 mg PO DAILY 12/16/22 07/02/23 History protein See Rx Instructions PO .COMPLEX 12/16/22 07/02/23 History acetaminophen 500 mg/15 mL oral 1,000 mg (30 mL) PO Q8H PRN #237 mL 01/19/23 07/02/23 Rx liquid ferrous sulfate 300 mg (60 mg 300 mg feeding tube .QOD 01/31/23 07/02/23 History iron)/5 mL oral liquid insulin NPH isoph U-100 human 100 See Rx Instructions .Route 02/28/23 07/02/23 Rx unit/mL (3 mL) subcutaneous pen .COMPLEX #0 mL (Humulin N NPH U-100 Insulin KwikPen) ibuprofen 100 mg/5 mL oral 600 mg PO Q8H PRN 04/04/23 07/02/23 History suspension nystatin 100,000 unit/gram topical 1 applic topical TID PRN 05/03/23 07/02/23 History cream nystatin 100,000 unit/gram topical 1 applic topical TID PRN 05/03/23 07/02/23 History powder pantoprazole 40 mg granules 40 mg G-tube DAILY 05/03/23 07/02/23 History delayed-release for susp in packet insulin glargine 100 unit/mL (3 10 unit subcut QPM 05/04/23 07/02/23 History mL) subcutaneous pen (Lantus Solostar U-100 Insulin) melatonin 3 mg tablet 9 mg feeding tube HS 05/04/23 07/02/23 History ondansetron HCl 4 mg tablet 8 mg feeding tube Q8H PRN 05/08/23 07/02/23 History Exam Narrative Exam Narrative: General: A pleasant middle-aged female on 1L of O2, coughing incessantly, A&Ox3, [place] Neurological: A&Ox3, tremulous, [place], no focal deficits Psychiatric: Appropriate speech pattern/content Skin: Visible skin intact HEENT: Atraumatic, normocephalic, EOMI, MMM, clear oropharynx, tympanic membranes are not erythematous or bulging B, there is mild cerumen buildup in the R ear canal, no submandibular or cervical lymphadenopathy, no goiter or JVD Cardiovascular: RRR, no m/r/g Lungs: rhonchi on expiratory B Gastrointestinal: soft, nontender, nondistended; gastrostomy tube in place Genitourinary: deferred Extremities: trace edema BLEs, trace pedal pulses B, no lesions on B feet, no clubbing or cyanosis Results Imaging Imaging Studies: CXR: Perihilar bronchial wall thickening which can be seen with bronchiolitis or small airways disease. EKG #1: ST, HR 113, no acute ischemia EKG #2: ST, HR 109, unchanged. Labs 07/02/23 12:17 07/02/23 12:17 Labs: Laboratory Results - last 24 hr 07/02/23 07/02/23 07/02/23 12:17 12:32 14:42 WBC 14.79 H RBC 4.78 Hgb 13.6 Hct 42.3 MCV 89 MCH 28.5 MCHC 32.2 RDW 15.4 H Plt Count 244 MPV 10.8 Immature Gran % 0.3 Neutrophils % 74.3 Lymphocytes % 10.8 Monocytes % 5.3 Eosinophils % 8.6 Basophils % 0.7 Nucleated RBC % 0.0 Absolute Neutrophils 10.99 H Absolute Lymphocytes 1.60 Absolute Monocytes 0.78 Absolute Eosinophils 1.27 H Absolute Basophils 0.10 VBG pH 7.27 L 7.31 VBG pCO2 71 H* 58 H VBG pO2 44 42 VBG HCO3 32 H 29 H VBG Total CO2 30 H 26 VBG O2 Saturation 71 72 VBG Base Excess 5 H 2 Sodium 142 Potassium 4.5 Chloride 102 Carbon Dioxide 31.4 Anion Gap 8.6 BUN 11 Creatinine 0.8 Est GFR (CKD-EPI 2020) 82.74 Glucose 113 H Calcium 9.8 Troponin I 203 H* 434 H* COVID-19 Source Nasopharynx SARS-CoV-2 (PCR) Negative Influenza Type A (PCR) Negative Influenza Type B (PCR) Negative RSV (PCR) Negative Last Vital Signs Temp 37.0 C 07/02/23 13:28 Pulse 112 H 07/02/23 14:11 Resp 22 07/02/23 14:11 BP 143/84 H 07/02/23 13:28 Pulse Ox 97 07/02/23 14:11 Time Spent Time spent with Patient: 55-74 minutes Time was spent: preparing to see the patient(eg.review tests), obtaining and/or reviewing separately otained hiistory, ordering medications,tests, procedures, referring, communicating with other health health care / medical job titles, indepentently interpreting results, counseling the patient and care coordination
--- NOTE | 2023-07-02 17:22 | W.PC.ACHO ---
Registration Status: REG ER Primary Language: Preferred Language: Kyrgyz ED Information & Data Chief Complaint SOB 07/02/23 13:28 Chief Complaint SOB 07/02/23 11:20 Triage Note patient dx w/pneumonia last 07/02/23 11:20 week. here today w/inc. sob and wheezing, did updraft before ems arrived, ems gave her another tx of a dustub enroute. c/o cp w/coughing. usually on chronic O2 at night @2LPM) Medical / Surgical History (Last Updated 05/03/23 @ 05:42 by Geronimo Denney) Esophageal stricture Chronic systolic (congestive) heart failure Aspiration pneumonia Stress-induced cardiomyopathy Acute cardiogenic pulmonary edema Acute metabolic encephalopathy Bilateral pneumonia Hypokalemia Closed fracture of neck of left femur Constipation Diabetes mellitus type 2 in obese Chronic iron deficiency anemia ETOH abuse Poorly controlled diabetes mellitus Chronic pancreatitis due to acute alcohol intoxication Alcohol abuse History of pilonidal cyst Anxiety (Last Reviewed 05/03/23 @ 05:25 by Geronimo Denney) History of total left hip arthroplasty (01/19/23) S/P laparoscopic procedure S/P surgical removal of pilonidal cyst History of esophagogastroduodenoscopy (EGD) (~06/10/21) History of colonoscopy with polypectomy (~06/10/21) History of hysterectomy History of tonsillectomy History of section Most Recent Vital Signs Temperature 37.0 C 07/02/23 13:28 Temperature Source Oral 07/02/23 13:28 Pulse 108 H 07/02/23 16:46 Pulse 107 H 07/02/23 16:50 Respiratory Rate 18 07/02/23 16:50 Respiratory Effort Normal 07/02/23 13:28 Respiratory Depth Normal 07/02/23 13:28 Respiratory Pattern Normal 07/02/23 13:28 Blood Pressure 109/59 L 07/02/23 16:46 Blood Pressure Mean 76 07/02/23 16:46 Blood Pressure Position Sitting 07/02/23 13:28 Pulse Oximetry 97 07/02/23 14:11 Oxygen Delivery Method Nasal Cannula 07/02/23 13:28 Oxygen Flow Rate 2 07/02/23 13:28 Fraction of Inspired Oxygen (FIO2) 24 07/02/23 14:11 Pain Level 6 07/02/23 13:28 Allergies metformin Adverse Reaction (Unknown, Verified 07/02/23 16:45) Diarrhea meperidine Adverse Reaction (Verified 07/02/23 16:45) gi upset IV IV Catheter Type [Left Upper Saline Lock arm] IV Catheter Gauge [Left Upper 18 arm] Diagnostics 07/02/23 07/02/23 07/02/23 Range/Units Unknown 17:45 14:42 WBC (4.4-10.8) 10^3/uL RBC (3.93-5.22) 10^6/uL Hgb (11.2-15.7) g/dL Hct (36.0-46.0) % MCV (80-95) fL MCH (27.0-33.0) pg MCHC (32.0-36.0) % RDW (11.7-14.6) % Plt Count (130-400) 10^3/uL MPV (8.0-11.0) fL Immature Gran % Neutrophils % Lymphocytes % Monocytes % Eosinophils % Basophils % Nucleated RBC % (0.0-0.3) % Absolute Neutrophils (1.2-6.7) 10^3/uL Absolute Lymphocytes (1.2-3.4) 10^3/uL Absolute Monocytes (0.1-0.8) 10^3/uL Absolute Eosinophils (0.0-0.7) 10^3/uL Absolute Basophils (0.0-0.2) 10^3/uL VBG pH 7.31 (7.31-7.41) VBG pCO2 58 H (41-51) mmHg VBG pO2 42 mmHg VBG HCO3 29 H (23-28) mmol/L VBG Total CO2 26 (24-29) mmol/L VBG O2 Saturation 72 % VBG Base Excess 2 (-2-3) mmol/L Sodium (136-145) mmol/L Potassium (3.5-5.1) mmol/L Chloride (98-107) mmol/L Carbon Dioxide (21.0-32.0) mmol/L Anion Gap (3-11) mmol/L BUN (7-18) mg/dL Creatinine (0.55-1.02) mg/dL Est GFR (CKD-EPI 2020) (mL/min/1.73m2) Glucose (74-106) mg/dL Calcium (8.5-10.1) mg/dL Troponin I Pending 434 H* (< or =60) ng/L COVID-19 Source SARS-CoV-2 (PCR) (Negative) Influenza Type A (PCR) (Negative) Influenza Type B (PCR) (Negative) RSV (PCR) (Negative) Add-On Test Request Pending 07/02/23 07/02/23 Range/Units 12:32 12:17 WBC 14.79 H (4.4-10.8) 10^3/uL RBC 4.78 (3.93-5.22) 10^6/uL Hgb 13.6 (11.2-15.7) g/dL Hct 42.3 (36.0-46.0) % MCV 89 (80-95) fL MCH 28.5 (27.0-33.0) pg MCHC 32.2 (32.0-36.0) % RDW 15.4 H (11.7-14.6) % Plt Count 244 (130-400) 10^3/uL MPV 10.8 (8.0-11.0) fL Immature Gran % 0.3 Neutrophils % 74.3 Lymphocytes % 10.8 Monocytes % 5.3 Eosinophils % 8.6 Basophils % 0.7 Nucleated RBC % 0.0 (0.0-0.3) % Absolute Neutrophils 10.99 H (1.2-6.7) 10^3/uL Absolute Lymphocytes 1.60 (1.2-3.4) 10^3/uL Absolute Monocytes 0.78 (0.1-0.8) 10^3/uL Absolute Eosinophils 1.27 H (0.0-0.7) 10^3/uL Absolute Basophils 0.10 (0.0-0.2) 10^3/uL VBG pH 7.27 L (7.31-7.41) VBG pCO2 71 H* (41-51) mmHg VBG pO2 44 mmHg VBG HCO3 32 H (23-28) mmol/L VBG Total CO2 30 H (24-29) mmol/L VBG O2 Saturation 71 % VBG Base Excess 5 H (-2-3) mmol/L Sodium 142 (136-145) mmol/L Potassium 4.5 (3.5-5.1) mmol/L Chloride 102 (98-107) mmol/L Carbon Dioxide 31.4 (21.0-32.0) mmol/L Anion Gap 8.6 (3-11) mmol/L BUN 11 (7-18) mg/dL Creatinine 0.8 (0.55-1.02) mg/dL Est GFR (CKD-EPI 2020) 82.74 (mL/min/1.73m2) Glucose 113 H (74-106) mg/dL Calcium 9.8 (8.5-10.1) mg/dL Troponin I 203 H* (< or =60) ng/L COVID-19 Source Nasopharynx SARS-CoV-2 (PCR) Negative (Negative) Influenza Type A (PCR) Negative (Negative) Influenza Type B (PCR) Negative (Negative) RSV (PCR) Negative (Negative) Add-On Test Request Intake and Output - 24 Hour Total 07/02/23 11:18 thru 07/02/23 13:45 Intake Total 500 Balance 500 Weight 68.039 kg Intake: IV 500 Falls Risk Assessment History of Falls No History 07/02/23 13:28 Contributing Factors No Factors 07/02/23 13:28 Ambulatory Aids Independent 07/02/23 13:28 Tubes/Lines None 07/02/23 13:28 Gait Evaluation No gait disturbance 07/02/23 13:28 Cognition No cognitive impairment 07/02/23 13:28 Fall Total Score 0 07/02/23 13:28 Level of Risk Standard/Low Risk 07/02/23 13:28 Problems (Last Updated 05/03/23 @ 05:42 by Geronimo Denney) Discharge planning issues (Acute) DVT prophylaxis (Acute) HFrEF (heart failure with reduced ejection fraction) (Acute) Bronchiolitis (Acute) NSTEMI (non-ST elevated myocardial infarction) (Acute) COPD with acute exacerbation (Acute) Myocardial injury (Acute) Acute respiratory failure with hypoxia and hypercarbia (Acute) 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) v v v v v v v v v Sending and/or Receiving Nurses: Please use comment section below to note any information pertinent to the patient hand-off not included above. Information / Comments: bipap settings 10/5 24% fio2 Report received from: Rober SANCHEZ
[2023-07-02 17:58] LABS: Troponin I 504 ng/L (< or =60)
[2023-07-02] MEDS: cefTRIAXone 1 GM/50 ML BAG IVPB (20:02)
[2023-07-02] MEDS: Enoxaparin 40 MG/0.4 ML SYR SC (20:04)
[2023-07-02] MEDS: Atorvastatin 40 MG TAB 80 MG PO (20:05)
[2023-07-02] MEDS: Normal Saline Flush 10 ML SYR IVP (20:05)
[2023-07-02] MEDS: Sucralfate 1 GM TAB PO (20:05)
[2023-07-02] MEDS: Gabapentin 300 MG CAP 900 MG NG (20:05)
[2023-07-02] MEDS: Metoprolol CR 50 MG TABCR 25 MG PO (20:05)
[2023-07-02] MEDS: guaiFENesin 200 MG/10 ML CUP PO (20:06)
[2023-07-02] MEDS: Sacubitril/Valsartan 24 mg/26 mg TAB 1 EACH NG (20:06)
[2023-07-02 20:58] LABS: Troponin I 500 ng/L (< or =60)
[2023-07-02] MEDS: DOXYCYCLINE 100 MG in Normal Saline 100 ML IVPB (21:37)
[2023-07-02 21:47] LABS: Lab Add On Test DONE
[2023-07-02] MEDS: Melatonin 3 MG TAB 9 MG PO (21:52)
[2023-07-02] MEDS: QUEtiapine 100 MG TAB PO (21:53)
--- NOTE | 2023-07-02 22:17 | NUR.NOTE ---
Pt tranfered from ICU via w/c. Alert and oreanted x3 able to tranfer to bed from w/c with stand by assist. On room air at this time. Has a most cough and is perductive. Has a peg tube in place. Takes medications via per peg. In bed with call light in reach watching tv. Dyana any pain or discomfort at this time. Note:
[2023-07-02 22:35] LABS: Procalcitonin < 0.1 ng/mL
[2023-07-03] VITALS (11 sets, daily range): BP systolic 96–111; BP diastolic 55–73; PULSE 82–103; RESP 5–19; TEMP 36.5–37.2; O2SAT 89–93
[2023-07-03] MEDS: guaiFENesin 200 MG/10 ML CUP PO ×3 (02:00→14:48)
[2023-07-03 07:11] LABS: Abs Immature Grans 0.05 10^3/uL (0.0-0.06); Absolute Basophil Count 0.06 10^3/uL (0.0-0.2); Absolute Eosinophil Count 0.03 10^3/uL (0.0-0.7); Absolute Lymphocyte Count 1.86 10^3/uL (1.2-3.4); Basophils % 0.5; Eosinophils % 0.3; HCT 40.7 % (36.0-46.0); HGB 13.3 g/dL (11.2-15.7); Immature Grans % 0.4; Lymphocytes % 16.6; MCH 28.2 pg (27.0-33.0); MCHC 32.7 % (32.0-36.0); MCV 86 fL (80-95); MPV 11.3 fL (8.0-11.0); Neutrophils % 74.2; Platelet Count 275 10^3/uL (130-400); RBC 4.71 10^6/uL (3.93-5.22); RDW 15.4 % (11.7-14.6); RDW-SD 48.6 fL; WBC 11.19 10^3/uL (4.4-10.8)
[2023-07-03 07:22] LABS: Anion Gap 10.8 mmol/L (3-11); BUN 17 mg/dL (7-18); CO2 26.2 mmol/L (21.0-32.0); Calcium 9.7 mg/dL (8.5-10.1); Chloride 102 mmol/L (98-107); Glucose 107 mg/dL (74-106); Magnesium 1.9 mg/dL (1.8-2.4); Potassium 4.5 mmol/L (3.5-5.1); Sodium 139 mmol/L (136-145)
[2023-07-03] MEDS: buPROPion 100 MG TAB 300 MG NG (07:51)
[2023-07-03] MEDS: Sucralfate 1 GM TAB PO ×4 (07:51→20:18)
[2023-07-03] MEDS: Omeprazole 20 MG CAPCR PO (07:51)
[2023-07-03] MEDS: Protein Nutritional Supplement 16 GM 1 OUNCE PACKET NG ×2 (07:51→20:17)
[2023-07-03] MEDS: Folic Acid 1 MG TAB PO (07:52)
[2023-07-03] MEDS: Empaglifozin 10 MG TAB PO (07:52)
[2023-07-03] MEDS: Sacubitril/Valsartan 24 mg/26 mg TAB 1 EACH NG ×2 (07:52→20:18)
[2023-07-03] MEDS: predniSONE 20 MG TAB 40 MG PO (07:52)
[2023-07-03] MEDS: Gabapentin 300 MG CAP 900 MG NG ×3 (07:53→20:18)
[2023-07-03] MEDS: Normal Saline Flush 10 ML SYR IVP ×2 (07:54→17:56)
[2023-07-03] MEDS: Albuterol/Ipratropium 3 ML UPD VIAL UPD ×2 (09:19→15:40)
--- NOTE | 2023-07-03 09:49 | PDOC.CMIN ---
Date of service: 07/03/23 Time of Service: 09:49 Care Management Initial Assmt Initial Assessment REASON FOR HOSPITALIZATION:: Bronciolitis, Acute Hypoxic Hypercapnic Respiratory Failure PREVIOUS FUNCTIONAL STATUS/SOCIAL/FAMILY SUPPORTS:: Jennifer resides in [facility] with her Campos. 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 She and her have two adult sons, Geronimo and Carlton, one of whom lives locally and is supportive of the couple. Jennifer is independent with her ADLs at baseline. CURRENT FUNCTIONAL STATUS:: Jennifer was lying in bed, at bedside. , Campos struggling to regulate emotions, weeping and concerned, anticipate Jennifer will return home after ECHO completed on Wednesday, per MD. ADVANCE DIRECTIVES:: None on file. Has patient been provided with info about the portal/API?: Yes Did the patient sign up for the portal?: Yes CODE STATUS:: Full Code INSURANCE COVERAGE / FINANCIAL ISSUES:: [employer] CURRENT HOME/COMMUNITY SERVICES/EQUIPMENT:: [employer]. PT. PRIMARY CARE PHYSICIAN:: Ana Gillespie POTENTIAL DISCHARGE NEEDS:: Evaluations for further needs, follow up appointments, ECHO. PATIENT/FAMILY EDUCATION NEEDS:: Review discharge instructions and limitations, discussion of self care needs including ask me three. ANTICIPATED BARRIERS TO DISCHARGE:: None. TRANSPORTATION:: Via private vehicle by her . PLAN:: Anticipate Jennifer will return home once medically cleared. Her will drive her home via private vehicle when ready. She will follow up with her PCP and discharge plan of care. CM will continue to follow. PFSH All Active Problems (Updated 07/03/23 @ 16:40 by Erin Damon MD) Acute on chronic respiratory failure with hypoxia and hypercapnia (Acute) Discharge planning issues (Acute) DVT prophylaxis (Acute) HFrEF (heart failure with reduced ejection fraction) (Chronic) Bronchiolitis (Acute) NSTEMI (non-ST elevated myocardial infarction) (Acute) Per pt. 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) Acute respiratory failure with hypoxia (Acute) COVID (Acute) Depression (Chronic) Bipolar 1 disorder (Chronic) Diabetes (Chronic) Cholelithiasis (Chronic) Ventral hernia (Acute) Leukocytosis (Acute) Pleural effusion (Acute) Black tarry stools (Acute) Chronic diarrhea (Acute) Farrell's esophagus (Chronic) Esophageal ulcer with bleeding (Acute) Erosive esophagitis (Acute) Farrell's 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 (Acute) Hyperplastic colon polyp (Acute ~06/10/21) Tubular adenoma (Acute ~06/10/21) Neuroleptic induced parkinsonism (Acute) Drug-induced parkinsonism (Acute) Anemia (Chronic) Status post hip surgery (Acute) H/O: pneumonia (Acute) Abnormal chest xray (Acute) Pre-op evaluation (Acute) Medical History (Updated 07/03/23 @ 16:40 by Erin Damon MD) Esophageal stricture Chronic systolic (congestive) heart failure Aspiration pneumonia Stress-induced cardiomyopathy acute onset managed at [facility] 08/30 pressors, EF 25%, has since recovered RH Acute cardiogenic pulmonary edema Acute metabolic encephalopathy Bilateral pneumonia Hypokalemia Closed fracture of neck of left femur s/p Percutaneous Screw Fixation 08/09/22 Constipation Diabetes mellitus type 2 in obese Chronic iron deficiency anemia ETOH abuse Poorly controlled diabetes mellitus Chronic pancreatitis due to acute alcohol intoxication Alcohol abuse Per pt. states she has never had an issues with any subtances History of pilonidal cyst Anxiety Surgical History (Updated 05/05/23 @ 00:06 by HELDER SRIVASTAVA) History of total left hip arthroplasty (01/19/23) S/P laparoscopic procedure cyst removed from stomach per patient S/P surgical removal of pilonidal cyst History of esophagogastroduodenoscopy (EGD) (~06/10/21) History of colonoscopy with polypectomy (~06/10/21) History of hysterectomy History of tonsillectomy History of section Family History Father Hypertension Diabetes Heart disease Social History Smoking/Tobacco Use Status: Never Smoking risk assessment performed?: Yes Alcohol Intake: never Drug use: Never Substance use type: does not use Household members: spouse Housing: apartment Number of Children: 2 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
[2023-07-03] MEDS: DOXYCYCLINE 100 MG in Normal Saline 100 ML IVPB ×2 (10:41→21:26)
--- NOTE | 2023-07-03 16:25 | W.PM.PROGNOT ---
Date of Service Date of service: 07/03/23 Time of Service: 10:45 Assessment and Plan Assessment and plan (1) Acute on chronic respiratory failure with hypoxia and hypercapnia: Status: Acute Assessment and plan: in setting of reactive airways disease and bronchiolitis. The patient now states that COVID-19 was months ago, not 3 weeks ago, so this is not COVID sequella. It could be due to aspiration again. Procalcitonin is negative, but the patient is having productive purulent (yellow sputum) cough. Continue scheduled + prn nebs, empiric ceftriaxone + doxycycline, antitussives. Sputum sample with normal wiley. Wean O2 as tolerated. Check exercise oximetry tomorrow am. Encourage pulmonary toilet. (2) Bronchiolitis: Status: Acute Assessment and plan: As above (3) NSTEMI (non-ST elevated myocardial infarction): Status: Acute Assessment and plan: Likely type 2 NSTEMI. Treat underlying pulmonary disease. Continue aspirin. Await echocardiogram. (4) Insulin dependent type 2 diabetes mellitus: Status: Chronic Assessment and plan: Anticipate steroid-induced hyperglycemia. Continue home basal bolus regimen in addition to our SSI. (5) HFrEF (heart failure with reduced ejection fraction): Status: Chronic Assessment and plan: As I understand it, the patient never did get a cardiac catheterization at [facility] when she first presented with the LVEF of 35%. The EF did improve on the optimal medical therapy. Repeat echo. Monitor volume status. Continue home regimen. (6) DVT prophylaxis: Status: Acute Assessment and plan: SC enoxaparin (7) Discharge planning issues: Status: Acute Assessment and plan: Full code Anticipate discharge home tomorrow. Exercise oximetry prior to discharge. Subjective Subjective Interval history since last seen: Ms Irving is saturating 92% on RA. She is normally on 2L of O2 at night. She wants to go home, but understands that she is still coughing a lot and is not quite ready. She is very wheezy as well. Denies dizziness, CP, n/v. Exam Narrative Exam Narrative: General: A pleasant middle-aged female on RA, coughing is better, A&Ox3, [place] HEENT: EOMI, MMM Cardiovascular: RRR, no m/r/g Lungs: expiratory wheezing B, a little better Gastrointestinal: soft, nontender, nondistended; gastrostomy tube in place Extremities: trace edema, no clubbing/cyanosis Objective Last Vital Signs Temp 36.5 C 07/03/23 14:59 Pulse 99 H 07/03/23 14:59 Resp 19 07/03/23 14:59 BP 100/61 07/03/23 14:59 Pulse Ox 89 L 07/03/23 15:40 Laboratory Results - last 24 hr 07/02/23 07/02/23 07/02/23 17:32 20:30 Unknown WBC RBC Hgb Hct MCV MCH MCHC RDW Plt Count MPV Immature Gran % Neutrophils % Lymphocytes % Monocytes % Eosinophils % Basophils % Nucleated RBC % Absolute Neutrophils Absolute Lymphocytes Absolute Monocytes Absolute Eosinophils Absolute Basophils Sodium Potassium Chloride Carbon Dioxide Anion Gap BUN Creatinine Est GFR (CKD-EPI 2020) Glucose Calcium Magnesium Troponin I 504 H* 500 H* Procalcitonin < 0.1 Add-On Test Request DONE 07/03/23 06:50 WBC 11.19 H RBC 4.71 Hgb 13.3 Hct 40.7 MCV 86 MCH 28.2 MCHC 32.7 RDW 15.4 H Plt Count 275 MPV 11.3 H Immature Gran % 0.4 Neutrophils % 74.2 Lymphocytes % 16.6 Monocytes % 8.0 Eosinophils % 0.3 Basophils % 0.5 Nucleated RBC % 0.0 Absolute Neutrophils 8.30 H Absolute Lymphocytes 1.86 Absolute Monocytes 0.90 H Absolute Eosinophils 0.03 Absolute Basophils 0.06 Sodium 139 Potassium 4.5 Chloride 102 Carbon Dioxide 26.2 Anion Gap 10.8 BUN 17 Creatinine 1.0 Est GFR (CKD-EPI 2020) 63.30 Glucose 107 H Calcium 9.7 Magnesium 1.9 Troponin I Procalcitonin Add-On Test Request Time Spent with Patient Time Spent with Patient: 35-49 minutes Time was spent: preparing to see the patient(eg.review tests), obtaining and/or reviewing separately otained hiistory, ordering medications,tests, procedures, referring, communicating with other health inpatient care manager rn, indepentently interpreting results, counseling the patient and care coordination
[2023-07-03] MEDS: Insulin Aspart 300 UNITS/3 ML PEN SC ×2 (16:44→22:10)
[2023-07-03] MEDS: Mylanta Suspension 30 ML CUP NG (17:55)
[2023-07-03] MEDS: cefTRIAXone 1 GM/50 ML BAG IVPB (17:55)
[2023-07-03] MEDS: Enoxaparin 40 MG/0.4 ML SYR SC (17:55)
[2023-07-03] MEDS: Atorvastatin 40 MG TAB 80 MG PO (20:17)
[2023-07-03] MEDS: Metoprolol CR 25 MG TABCR PO (20:18)
[2023-07-03] MEDS: Insulin Glargine 300 UNITS/3 ML PEN 10 UNITS SC (20:18)
[2023-07-03] MEDS: Melatonin 3 MG TAB 9 MG PO (21:25)
[2023-07-03] MEDS: QUEtiapine 100 MG TAB PO (21:26)
[2023-07-03 21:47] LABS: Legionella Ag Detection Urine Negative (Negative)
[2023-07-04] VITALS (11 sets, daily range): BP systolic 85–99; BP diastolic 50–60; PULSE 63–88; RESP 10–18; TEMP 36.5–37.5; O2SAT 85–97
[2023-07-04] MEDS: Normal Saline Flush 10 ML SYR IVP ×4 (00:20→21:13)
--- NOTE | 2023-07-04 02:15 | RT.EKG_ITS ---
APPROVED REPORT Exam: Resting ECG Reason for Exam: t wave changes Patient Location: I HR:81 bpm ECG Measurements Heart Rate 81 AXIS MI 143 P 56 QRSd 87 QRS 92 QT 491 T 201 QTc 570 Conclusion Sinus rhythm...normal P axis, V-rate 50- 99 Low voltage, extremity and precordial leads...extremity<0.5mV, precordial<1.0mV Abnrm T, probable ischemia, anterolateral lds...T <-0.50mV, I aVL V2-V6 Prolonged QT interval...QTc >500mS
[2023-07-04 02:50] LABS: BE (Venous) 6 mmol/L (-2-3); HCO3 (Venous) 28 mmol/L (23-28); O2 Sat (Venous) 93 %; TCO2 (Venous) 25 mmol/L (24-29); pCO2 (Venous) 34 mmHg (41-51); pH (Venous) 7.53 (7.31-7.41); pO2 (Venous) 60 mmHg
[2023-07-04 03:17] LABS: Troponin I 192 ng/L (< or =60)
--- NOTE | 2023-07-04 05:30 | RT.EKG_ITS ---
APPROVED REPORT Exam: Resting ECG Reason for Exam: Lateral ischemia with hypoxemia Patient Location: I HR:69 bpm ECG Measurements Heart Rate 69 AXIS PA 156 P 60 QRSd 73 QRS 85 QT 561 T 198 QTc 601 Conclusion Incomplete analysis due to missing data in precordial lead(s) Sinus rhythm...normal P axis, V-rate 50- 99 Low voltage, extremity leads...all extremity leads <0.5mV Abnrm T, probable ischemia, anterolateral lds...T <-0.50mV, I aVL V2-V6 Prolonged QT interval...QTc >500mS Missing lead(s): V2
[2023-07-04 06:12] LABS: Abs Immature Grans 0.02 10^3/uL (0.0-0.06); Absolute Basophil Count 0.06 10^3/uL (0.0-0.2); Absolute Eosinophil Count 0.11 10^3/uL (0.0-0.7); Absolute Lymphocyte Count 2.78 10^3/uL (1.2-3.4); Absolute Monocyte Count 0.79 10^3/uL (0.1-0.8); Absolute Neutrophil Count 5.15 10^3/uL (1.2-6.7); Basophils % 0.7; Eosinophils % 1.2; HCT 34.8 % (36.0-46.0); HGB 11.4 g/dL (11.2-15.7); Immature Grans % 0.2; Lymphocytes % 31.2; MCHC 32.8 % (32.0-36.0); MCV 86 fL (80-95); MPV 11.3 fL (8.0-11.0); Monocytes % 8.9; Neutrophils % 57.8; Platelet Count 200 10^3/uL (130-400); RBC 4.07 10^6/uL (3.93-5.22); RDW-SD 49.7 fL; WBC 8.91 10^3/uL (4.4-10.8)
[2023-07-04 06:25] LABS: Anion Gap 6.2 mmol/L (3-11); BUN 31 mg/dL (7-18); CO2 29.8 mmol/L (21.0-32.0); CREATININE 0.8 mg/dL (0.55-1.02); Calcium 9.4 mg/dL (8.5-10.1); Chloride 104 mmol/L (98-107); Estimated GFR 82.74 (mL/min/1.73m2); Glucose 152 mg/dL (74-106); Magnesium 1.9 mg/dL (1.8-2.4); Potassium 3.8 mmol/L (3.5-5.1); Sodium 140 mmol/L (136-145)
[2023-07-04 06:43] LABS: Troponin I 162 ng/L (< or =60)
--- NOTE | 2023-07-04 07:00 | RT.EKG_ITS ---
APPROVED REPORT Exam: Resting ECG Reason for Exam: previous EKG was done without V2 Patient Location: I HR:72 bpm ECG Measurements Heart Rate 72 AXIS IN 150 P 48 QRSd 80 QRS 88 QT 464 T 194 QTc 508 Conclusion Sinus rhythm...normal P axis, V-rate 50- 99 Borderline right axis deviation...QRS axis ( 81, 90) Low voltage, extremity leads...all extremity leads <0.5mV Abnormal T, consider ischemia, diffuse leads...T <-0.20mV, ant/lat/inf Prolonged QT interval...QTc >500mS
[2023-07-04] MEDS: buPROPion 100 MG TAB 300 MG NG (08:28)
[2023-07-04] MEDS: Metoprolol 25 MG TAB NG ×2 (08:29→21:11)
[2023-07-04] MEDS: Folic Acid 1 MG TAB NG (08:29)
[2023-07-04] MEDS: Sucralfate 1 GM TAB NG ×4 (08:29→21:12)
[2023-07-04] MEDS: predniSONE 20 MG TAB 40 MG NG (08:29)
[2023-07-04] MEDS: Empaglifozin 10 MG TAB NG (08:29)
[2023-07-04] MEDS: Gabapentin 300 MG CAP 900 MG NG ×3 (08:30→21:11)
[2023-07-04] MEDS: Aspirin 81 MG CHEW NG (08:30)
[2023-07-04] MEDS: Protein Nutritional Supplement 16 GM 1 OUNCE PACKET NG ×2 (08:30→21:09)
[2023-07-04] MEDS: Sacubitril/Valsartan 24 mg/26 mg TAB 1 EACH NG ×2 (08:30→21:11)
[2023-07-04] MEDS: guaiFENesin 200 MG/10 ML CUP PO ×2 (08:54→19:06)
[2023-07-04] MEDS: DOXYCYCLINE 100 MG in Normal Saline 100 ML IVPB ×2 (10:33→21:09)
--- NOTE | 2023-07-04 11:24 | NUR.NOTE ---
Nursing Note: provider notified of low BP of 85/50 @ 1120 on 07/04/23
[2023-07-04] MEDS: Insulin NPH-Human 300 UNITS/3 ML PEN 20 UNIT SC (11:26)
[2023-07-04] MEDS: Insulin Aspart 300 UNITS/3 ML PEN SC ×3 (12:15→21:15)
--- NOTE | 2023-07-04 14:28 | PGE_ITS ---
Date of Service Date of service: 07/04/23 Time of Service: 14:31 Assessment and Plan Assessment and plan (1) NSTEMI (non-ST elevated myocardial infarction): Status: Acute Assessment and plan: Now with EKG changes, the question is whether this is a type 1 vs type 2 NSTEMI. Discussed with cardiology at [facility] [place]. When the patient was originally diagnosed with her stress cardiomyopathy with low EF, she did not have a cardiac cath because she had a cardiac CTA with a calcium score of 0. The recommendation was to observe the patient overnight and obtain an echocardiogram, which is ordered. Treat underlying pulmonary disease. Continue aspirin. Await echocardiogram. (2) Acute on chronic respiratory failure with hypoxia and hypercapnia: Status: Acute Assessment and plan: in setting of reactive airways disease and bronchiolitis. The patient now states that COVID-19 was months ago, not 3 weeks ago, so this is not COVID sequella. It could be due to aspiration again. This is much better today - the patient sounds clear on exam and is not requiring oxygen on ambulation. Procalcitonin is negative, but the patient is having productive purulent (yellow sputum) cough. Continue scheduled + prn nebs, empiric ceftriaxone + doxycycline, antitussives. Wean prednisone. Sputum sample with normal wiley. Encourage pulmonary toilet. Needs to wear O2 at night - discussed with nursing. (3) Bronchiolitis: Status: Acute Assessment and plan: As above (4) Insulin dependent type 2 diabetes mellitus: Status: Chronic Assessment and plan: with steroid-induced hyperglycemia. Continue home basal bolus regimen in addition to our SSI. (5) HFrEF (heart failure with reduced ejection fraction): Status: Chronic Assessment and plan: The assumption that this was stress cardiomyopathy rather than ischemic was based on a cardiac CTA with a calcium score of 0 at [facility]. The EF did improve on the optimal medical therapy. Repeat echo is ordered for tomorrow. Monitor volume status. Continue home regimen. (6) DVT prophylaxis: Status: Acute Assessment and plan: SC enoxaparin (7) Discharge planning issues: Status: Acute Assessment and plan: Full code Possible discharge home tomorrow pending results of the echocardiogram. Back to her baseline O2 needs, which is 2L of O2 at HS. Subjective Subjective Interval history since last seen: Overnight, developed flipped T-waves on the telemetry. Was asymptomatic at the time, but was sleeping without oxygen or BiPAP on and saturating in the mid-80s. Placed on BiPAP and improved. EKGs, however, despite appropriate oxygenation continue to show T wave inversions. Jennifer feels better today. She denies dizziness, CP, SOB, n/v. She is on RA during the day and passed exercise oximetry testing. Her troponins have continued to downtrend. Case was discussed with [facility] cardiology, who recommended keeping the patient overnight for further monitoring and an echocardiogram in am. Her (Campos) is upset by this, but Jennifer understands and is agreeable. I also discussed this with Geronimo, the son, per Campos's request. Exam Narrative Exam Narrative: General: A pleasant middle-aged female on RA, not coughing, A&Ox3, sitting up comfortably in a chair HEENT: EOMI, MMM Cardiovascular: RRR, no m/r/g Lungs: CTAB Gastrointestinal: soft, nontender, nondistended; gastrostomy tube in place Extremities: trace edema, no clubbing/cyanosis Objective Last Vital Signs Temp 37.5 C 07/04/23 11:07 Pulse 73 07/04/23 11:07 Resp 18 07/04/23 11:07 BP 85/50 L 07/04/23 11:07 Pulse Ox 94 07/04/23 11:07 Laboratory Results - last 24 hr 07/04/23 07/04/23 02:46 05:48 WBC 8.91 RBC 4.07 Hgb 11.4 Hct 34.8 L MCV 86 MCH 28.0 MCHC 32.8 RDW 16.0 H Plt Count 200 MPV 11.3 H Immature Gran % 0.2 Neutrophils % 57.8 Lymphocytes % 31.2 Monocytes % 8.9 Eosinophils % 1.2 Basophils % 0.7 Nucleated RBC % 0.0 Absolute Neutrophils 5.15 Absolute Lymphocytes 2.78 Absolute Monocytes 0.79 Absolute Eosinophils 0.11 Absolute Basophils 0.06 VBG pH 7.53 H VBG pCO2 34 L VBG pO2 60 VBG HCO3 28 VBG Total CO2 25 VBG O2 Saturation 93 VBG Base Excess 6 H Sodium 140 Potassium 3.8 Chloride 104 Carbon Dioxide 29.8 Anion Gap 6.2 BUN 31 H Creatinine 0.8 Est GFR (CKD-EPI 2020) 82.74 Glucose 152 H Calcium 9.4 Magnesium 1.9 Troponin I 192 H* 162 H* Objective Narrative Objective Narrative: EKG 07:23: HR 72, anterolateral T wave inversions, unchanged from 02:34 and 5:21 am, but new from EKG in the ED on 07/02/23. Time Spent with Patient Time Spent with Patient: 35-49 minutes Time was spent: preparing to see the patient(eg.review tests), obtaining and/or reviewing separately otained hiistory, ordering medications,tests, procedures, referring, communicating with other health childcare director, indepentently interpreting results, counseling the patient and care coordination
[2023-07-04] MEDS: Enoxaparin 40 MG/0.4 ML SYR SC (18:05)
[2023-07-04] MEDS: cefTRIAXone 1 GM/50 ML BAG IVPB (18:05)
[2023-07-04] MEDS: Insulin Glargine 300 UNITS/3 ML PEN 10 UNITS SC (21:10)
[2023-07-04] MEDS: Atorvastatin 40 MG TAB 80 MG NG (21:11)
[2023-07-04] MEDS: Melatonin 3 MG TAB 9 MG PO (21:11)
[2023-07-04] MEDS: QUEtiapine 100 MG TAB NG (21:14)
[2023-07-05 03:11] VITALS: BP 99/59; PULSE 61; RESP 15; TEMP 37; O2SAT 92
[2023-07-05] MEDS: Albuterol 2.5 MG/3 ML INH SOLN VIAL UPD (03:17)
[2023-07-05 04:10] VITALS: RESP 15; O2SAT 92
--- NOTE | 2023-07-05 07:30 | DI.US_ITS ---
APPROVED REPORT EXAM: Comprehensive 2D, Doppler, and color-flow Echocardiogram Patient Location: In-Patient Room/Bed: [address] Tiler: Jayy Greene RDCS (AE) Indications: NSTEMI Conclusion Normal left ventricular wall thickness and chamber size. Ejection fraction is 55%. There is very mil d apical hypokinesis Normal right ventricular size and function both atria are normal in size There is no structural or hemodynamically significant valvular disease Wall motion Left Ventricle The left ventricle is normal size. The left ventricular systolic function is normal. The left ventric ular ejection fraction is within the normal range. There is normal left ventricular wall thickness. T here is apical hypokinesis Ventricular wall is not well visualized in subcostal views due to G-tube b andaging. LVEF is 55%. Right Ventricle The right ventricle is normal size. The right ventricular systolic function is normal. Atria The left atrium size is normal. The right atrium size is normal. Interatrial septum not well visualiz ed in subcostal views due to G-tube bandaging. Aortic Valve The aortic valve is normal in structure. Aortic valve is trileaflet. There is no aortic valvular sten osis. No aortic regurgitation is present. Mitral Valve The mitral valve is normal in structure. No evidence of mitral valve stenosis. Trace mitral regurgita tion. Tricuspid Valve The tricuspid valve is normal in structure. There is no tricuspid valve stenosis. Mild tricuspid regu rgitation. The RVSP is 23.1 mmHg. Pulmonic Valve The pulmonary valve is normal in structure. There is no pulmonic valvular stenosis. There is no pulmo amritza valvular regurgitation. Great Vessels The aortic root is normal in size. Ascending aorta is not well visualized. Aortic arch is normal in c aliber. IVC is normal in size and collapses >50% with inspiration. Pericardium There is no pericardial effusion. 2D Dimensions IVSD d PLAX 0.89 cm F: 0.6-1.0 Ao Root d 2.59 cm F: 2.7 - 3.3 LVPW d PLAX 0.88 cm F: 0.6 - 1.0 LVID d PLAX 3.62 cm F: 3.8 - 5.2 LVDs 2.59 cm F: 2.2 - 3.5 LV EF Teichholz 55.7 % FS 28.41 % LV EDV (Teich) 55.0 mL LV ESV (Teich) 24.3 mL M-Mode TAPSE 2.26 cm (M/F) >1.7 Auto EF LV EDV A4C 74.1 mL LV EDV A2C 79.8 mL LV EDV BP 77.7 mL LV ESV A4C 33.1 mL LV ESV A2C 35.1 mL LV ESV BP 35.0 mL LVEF(%) A4C 55.4 % LVEF(%) A2C 56.0 % LVEF(%) BP 54.9 % LV SV A4C 41.0 ml LV SV A2C 44.7 ml LV SV BP 42.7 ml LV CO A4C 2.9 L/min LV CO A2C 2.8 L/min LV CO BP 2.8 L/min HR A4C 69.63 BPM HR A2C 61.65 BPM LV EDV Index (BP) LA Volume LA Length A4C 3.9 cm LA Length A2C 4.5 cm LA Area A4C s 11.05 cm2 LA Area A2C s 12.82 cm2 LA Vol A4C A-L 26.26 mL LA Vol A2C A-L 30.87 mL LA Vol Biplane A-L 30.5 mL LA Vol A4C MOD 23.0 mL LA Vol A2C MOD 30.2 mL LA Vol BP MOD 27.4 mL RA Volume RA Area A4C 6.7 cm2 RA ESV A4C (A-L) 10.9mL RA Vol/BSA A4C A-L RA Length A4C 3.5 cm RA ESV A4C (MOD) 9.9mL LV Diastology MV E' medial 0.067 (>0.07 m/s) MV E Vmax 0.65 (0.4-1.3 m/s) MV E/E' MED 9.80 (<14) MV A Vmax 0.95 (0.4-1.3 m/s) MV E' lateral 0.084 (>0.1 m/s) E/A Ratio 0.7 MV E/E' LAT 7.73 (<14) MV E' Average 0.075 m/s MV E/E'(average) 8.64 Aortic Valve AoV Vmax 1.35 m/s LVOT Vmax 1.13 m/s AoV Peak Grad 7.3 mmHg LVOT Peak Grad 5.1 mmHg AoV Area (Vmax) 2.54 cm2 LVOT VTI 0.211 m AoV VTI 0.256 m LVOT Mean Grad 2.4 mmHg AoV Mean Jacky. 0.98 m/s LVOT SV 64.12 mL AoV Mean Grad 4.3 mmHg LVOT Diam s 1.95 cm AoV Area (VTI) 2.50 cm2 Velocity Ratio 0.84 Mitral Valve MV DT 204 (160-240 msec) Pulmonary Valve PV Vmax 0.81 (0.5-1.5 m/s) RVOT Vmax 0.70 m/s PV Peak Grad 2.6 mmHg RVOT Peak Gr. 1.9 mmHg PV Mean Jacky 0.60 m/s RVOT VTI 0.135 m PV Mean Grad 1.6 mmHg RVOT Mean Gr. 1.1 mmHg Tricuspid Valve RA Pressure 3.00 mmHg TR Vmax 2.24 m/s TR Peak Grad 20.0 mmHg RVSP (TR) 23.1 mmHg
[2023-07-05 08:28] VITALS: BP 101/66; PULSE 69; RESP 18; TEMP 36.5; O2SAT 92
[2023-07-05] MEDS: Folic Acid 1 MG TAB NG (09:17)
[2023-07-05] MEDS: buPROPion 100 MG TAB 300 MG NG (09:17)
[2023-07-05] MEDS: Aspirin 81 MG CHEW NG (09:18)
[2023-07-05] MEDS: Gabapentin 300 MG CAP 900 MG NG ×2 (09:18→14:23)
[2023-07-05] MEDS: Sacubitril/Valsartan 24 mg/26 mg TAB 1 EACH NG (09:18)
[2023-07-05] MEDS: predniSONE 20 MG TAB NG (09:18)
[2023-07-05] MEDS: Metoprolol 25 MG TAB NG (09:18)
[2023-07-05] MEDS: Empaglifozin 10 MG TAB NG (09:18)
[2023-07-05] MEDS: Sucralfate 1 GM TAB NG ×2 (09:18→11:48)
[2023-07-05] MEDS: Normal Saline Flush 10 ML SYR IVP ×2 (09:19→10:28)
[2023-07-05] MEDS: Protein Nutritional Supplement 16 GM 1 OUNCE PACKET NG (09:19)
[2023-07-05] MEDS: Nystatin 500000 UNITS/5 ML SUSP 5ML CUP PO ×2 (09:39→14:23)
[2023-07-05 09:52] LABS: Lab Add On Test DONE
[2023-07-05] MEDS: DOXYCYCLINE 100 MG in Normal Saline 100 ML IVPB (10:27)
[2023-07-05 11:21] VITALS: BP 93/58; PULSE 61; RESP 16; TEMP 36.6; O2SAT 93
[2023-07-05 11:29] LABS: C-Reactive Protein < 0.50 mg/dL (<or=0.5)
[2023-07-05] MEDS: Insulin Aspart 300 UNITS/3 ML PEN SC (11:49)
[2023-07-05] MEDS: Insulin NPH-Human 300 UNITS/3 ML PEN 20 UNIT SC (11:50)
[2023-07-05 11:54] LABS: Procalcitonin < 0.1 ng/mL
--- NOTE | 2023-07-05 12:29 | W.CARDCONSUL ---
Date of service: 07/05/23 Time of Service: 12:29 Assessment and Plan Assessment and plan (1) Acute on chronic respiratory failure with hypoxia and hypercapnia: Status: Acute Assessment and plan: Patient presented with an acute illness which is being appropriately treated (2) Myocardial injury: Status: Acute Assessment and plan: Presentation it is suggestive again of a stress-induced cardiac event. Her EKG is consistent with Takotsubo as is her echocardiogram, though her apical wall motion abnormality is much less pronounced compared to her prior. She had a coronary CTA which was entirely normal back in August. I do not think she requires left heart catheterization at this time. When her overall medical condition permits, it would be reasonable to perform a myocardial perfusion imaging study History of Present Illness Narrative: This is a 63-year-old woman who presented to the hospital over the weekend with difficulty breathing. She has a past history of stress-induced cardiomyopathy (Takotsubo) in the spring 2022. Evaluation included a coronary CTA which was entirely normal. None of her coronary arteries showed any stenosis or plaque. Subsequently her left ventricular function recovered. She came to the hospital with difficulty breathing, was exacerbation of COPD or bronchiolitis. Her EKG showed diffuse T wave inversions. Her troponins were elevated with a peak of 504. She had an echocardiogram done. Her EF was 55% with a subtle apical wall motion abnormality Review of Systems Narrative: Patient was not interviewed or examined PFSH All Active Problems Acute on chronic respiratory failure with hypoxia and hypercapnia (Acute) Discharge planning issues (Acute) DVT prophylaxis (Acute) HFrEF (heart failure with reduced ejection fraction) (Chronic) Bronchiolitis (Acute) NSTEMI (non-ST elevated myocardial infarction) (Acute) Per pt. 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) Acute respiratory failure with hypoxia (Acute) COVID (Acute) Depression (Chronic) Bipolar 1 disorder (Chronic) Diabetes (Chronic) Cholelithiasis (Chronic) Ventral hernia (Acute) Leukocytosis (Acute) Pleural effusion (Acute) Black tarry stools (Acute) Chronic diarrhea (Acute) Farrell's esophagus (Chronic) Esophageal ulcer with bleeding (Acute) Erosive esophagitis (Acute) Farrell's 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 (Acute) Hyperplastic colon polyp (Acute ~06/10/21) Tubular adenoma (Acute ~06/10/21) Neuroleptic induced parkinsonism (Acute) Drug-induced parkinsonism (Acute) Anemia (Chronic) Status post hip surgery (Acute) H/O: pneumonia (Acute) Abnormal chest xray (Acute) Pre-op evaluation (Acute) Medical History Esophageal stricture Chronic systolic (congestive) heart failure Aspiration pneumonia Stress-induced cardiomyopathy acute onset managed at [facility] 08/30 pressors, EF 25%, has since recovered RH Acute cardiogenic pulmonary edema Acute metabolic encephalopathy Bilateral pneumonia Hypokalemia Closed fracture of neck of left femur s/p Percutaneous Screw Fixation 08/09/22 Constipation Diabetes mellitus type 2 in obese Chronic iron deficiency anemia ETOH abuse Poorly controlled diabetes mellitus Chronic pancreatitis due to acute alcohol intoxication Alcohol abuse Per pt. states she has never had an issues with any subtances History of pilonidal cyst Anxiety Surgical History History of total left hip arthroplasty (01/19/23) S/P laparoscopic procedure cyst removed from stomach per patient S/P surgical removal of pilonidal cyst History of esophagogastroduodenoscopy (EGD) (~06/10/21) History of colonoscopy with polypectomy (~06/10/21) History of hysterectomy History of tonsillectomy History of section Family History Father Hypertension Diabetes Heart disease Social History Smoking/Tobacco Use Status: Never Smoking risk assessment performed?: Yes Alcohol Intake: never Drug use: Never Substance use type: does not use Household members: spouse Housing: apartment Number of Children: 2 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
--- NOTE | 2023-07-05 15:32 | W.PM.DS.N ---
Date of service: 07/05/23 Time of Service: 15:32 DS: Diagnosis Discharge Diagnosis (1) Acute on chronic respiratory failure with hypoxia and hypercapnia: Status: Acute Asessment and Plan: 62-year-old female patient with a past medical history of aspiration pneumonia, type II diabetes, NSTEMI, bipolar disorder, Farrell's esophagus, esophageal stricture, s/p frequent esophageal dilatation, s/p PEG for feedings, Takotsubo cardiomyopathy (LVEF 50% per echo 11/30/22 who prsented to [facility] on 07/02/22 w/ one week of cough productive of purulent sputum after treatment w/ one week of Augmentin and recent COVID infection 3 weeks ago. Workup included CXR that showed bronchiolitis but no pneumonic consolidation. She never had a fever or rigors but presented w/ acute hypoxemic and hypercarbic respiratory failure (pH 7.27, pCO2 71, pO2 44 (on VBG), SPO2 95% but was on supplemental oxygen per EMS, patient also w/ incessant coughing and wheezing. Patient was treated w/ DuoNeb aerosols and started on Ceftriaxone and doxycycline. Sputum grew normal oral wiley. Steroids were begun. She improve and was able to be weaned off oxygen. Hospital stay was complicated by elevated troponin I levels that chanda to as high as 504 before declining to 162. This was associated w/ diffuse T wave inversions across her precordial leads as well as I, avL, and II and avF. Echocardiogram was performed and demonstrated very mild apical hypokinesis and preserved LVEF of 55% and normal RV size and function w/ no valvular abnormalities. Patient has had prior cardiac CT w/ reportedly a zero calcium score but has never had cardiac cath or stress MPI. On the day of her hospital discharge, Dr. Leblanc, typewriter aligner was consulted, see her report for details. In summary she feels that again her NSTEMI was actually a type II demand ischemia brought on by her hypoxemia and hypercarbia and the patient is exhibiting Takotsubo cardiomyopathy. However, patient should have a follow up stress MPI study. The patient's indicated that he will call the patient's typewriter aligner, Dr. Hernandez at [facility] and get her an expedited outpatient follow up. (2) Myocardial injury: Status: Acute Discharge Plan Disposition Patient Disposition: Home Condition: Improving Discharge Details Reason For Visit: Bronchiolitis,Acute Hypoxic Hypercapnic Respirator Admit Date/Time: 07/02/23 16:21 Admit Provider: Erin Damon Attending Provider: Erin Damon Primary Care Provider: Ana Gillespie Home Meds and New Rx's Prescriptions: New amoxicillin-pot clavulanate [Augmentin] 250-62.5 mg/5 mL suspension for reconstitution 10 ml feeding tube TID 3 Days Qty: 90 0RF prednisolone 15 mg/5 mL solution 15 mg feeding tube DAILY 5 Days Qty: 25 0RF guaifenesin 200 mg/5 mL liquid 200 mg feeding tube Q4H PRNQty: 118 0RF aspirin 81 mg tablet,chewable 81 mg feeding tube DAILY Qty: 30 0RF Continued bupropion HCl 100 mg tablet 300 mg PO DAILY Patient Comments: via g-tube, per pcp ov notes 12/09/22 RH protein Powder See Rx Instructions PO .COMPLEX Rx Instructions: 2 scoops daily gabapentin 300 mg capsule 900 mg feeding tube TID Patient Comments: via g-tube Entresto 24-26 mg tablet 1 tab feeding tube BID Patient Comments: via g-tube Jardiance 10 mg tablet 10 mg PO DAILY quetiapine 100 mg tablet 100 mg PO QHS atorvastatin 80 mg tablet 80 mg PO DAILY valproic acid (as sodium salt) 250 mg/5 mL solution 300 mg PO TID Rx Instructions: 6mls TID metoprolol succinate 50 mg tablet extended release 24 hr 25 mg PO BID sucralfate 1 gram tablet 1 g PO QID Patient Comments: TAKE ONE TABLET BY MOUTH FOUR TIMES A DAY folic acid 1 mg Tablet 1 mg PO DAILY Qty: 0 0RF ferrous sulfate 300 mg (60 mg iron)/5 mL liquid 300 mg feeding tube .QOD Patient Comments: TAKE 5ML VIA G-TUBE EVERY OTHER DAY Humulin N NPH Insulin KwikPen 100 unit/mL (3 mL) insulin pen See Rx Instructions .ROUTE .COMPLEX Qty: 0 0RF Rx Instructions: 20 units at 11 am followed by sliding scale at 3 pm (5 units for blood sugar of 250 plus 1 additional unit for any 20 points that the blood sugar is above 250) ibuprofen 100 mg/5 mL suspension 600 mg PO Q8H PRN acetaminophen 500 mg/15 mL liquid 1,000 mg PO Q8H PRNQty: 237 2RF nystatin 100,000 unit/gram powder 1 applic TOPICAL TID PRN Patient Comments: APPLY TO BUTTOCKS THREE TIMES A DAY NEEDED pantoprazole [address] for susp in packet 40 mg G-tube DAILY Patient Comments: Take 1 packet via g-tube twice a day Administer in 10 mL of apple juice via g-tub, then follow with another 10 mL. nystatin 100,000 unit/gram cream 1 applic TOPICAL TID PRN Patient Comments: APPLY A SMALL AMOUNT TO AFFECTED AREA(S) ON BUTTOCKS THREE TIMES A DAY NEEDED melatonin 3 mg tablet 9 mg feeding tube HS Patient Comments: TAKE THREE TABLETS VIA G-TUBE EVERY NIGHT DIRECTED insulin glargine [Lantus Solostar U-100 Insulin] 100 unit/mL (3 mL) insulin pen 10 unit SUBCUT QPM Patient Comments: INJECT 10 UNITS UNDER THE SKIN NIGHTLY DIRECTED ondansetron HCl 4 mg tablet 8 mg feeding tube Q8H PRN Patient Comments: TAKE ONE TABLET VIA G-TUBE EVERY 8 HOURS NEEDED Discharge Instructions Instructions: Amoxicillin/Clavulanate Potassium (By mouth), Dilated Cardiomyopathy (DC), Bronchiolitis (DC) Additional Instructions: You were treated for acute hypoxemic (low oxygen) and hypercapneic (elevated carbon dioxide) respiratory failure probably precipitated by acute bronchiolitis and chronic aspiration complicated by type II demand cardiac ischemia, Takotsubo cardiomyopathy. You were seen by Dr. Leblanc, typewriter aligner who read your echocardiogram which did not show any significant changes over your prior echocardiogram (ultrasound of your heart). You should follow up w/ your [facility] typewriter aligner and discuss having a stress test or having a cardiac catheterization to rule out coronary artery disease.. Stand Alone Forms: Nursing Discharge Form Referrals: Ana Gillespie [Primary Care Provider] - 07/16/23 11:00 am (needs follow up in the next week) Activity:: Activity as Tolerated Equipment/Supplies:: No Equipment Needed Diet:: tube feedings Discharge Orders Discharge Orders: Discharge Order (Routine); Ordered 07/05/23 Ordered By: Rory Sevilla Discharge Data Discharge Date/Time-TO BE ENTERED AT DEPARTURE: 07/05/23 16:02 DS: Summary Time Spent with Patient providing and/or coordinating discharge services: Greater than 30 minutes Specific discharge activities: Interview/exam of patient; review of discharge instructions, completion of prescriptions/discharge instructions; discussion w/ nursing and CM; documentation of hospital visit Status at Discharge Functional status at discharge: uses cane/walker Overall status at discharge: patient is progressing back to baseline Mental Status: mental status grossly normal Speech and Movement: speech and movement normal Mood: congruent mood Affect: normal affect Quality:SDOH Health Related Social Needs: No Data to Display Exam Narrative Exam Narrative: Middle-aged white female sitting up in her chair talking with her son and her . She is alert and oriented x 3 denies any chest pain pressure palpitations denies any dyspnea. Lungs are clear to auscultation Heart is regular rate and rhythm no murmur rub Extremities without peripheral edema Psych Mental Status: mental status grossly normal Speech and Movement: speech and movement normal Mood: congruent mood Affect: normal affect DS: Data Vitals/I&O Vitals and I&O: Vital Signs Temperature 36.6 C 07/05/23 11:21 Temperature Source Tympanic 07/05/23 11:21 Pulse 61 07/05/23 11:21 Pulse Rhythm Regular 07/05/23 14:42 Pulse 101 H 07/02/23 18:33 Respiratory Rate 16 07/05/23 11:21 Respiratory Effort Normal, Non-Labored 07/05/23 14:42 Respiratory Depth Normal 07/05/23 14:42 Respiratory Pattern Normal 07/05/23 14:42 Blood Pressure 93/58 L 07/05/23 11:21 Blood Pressure Mean 85 07/02/23 18:35 Blood Pressure Position Sitting 07/02/23 18:35 Pulse Oximetry 93 07/05/23 11:21 Oxygen Delivery Method Room Air 07/05/23 11:21 Oxygen Flow Rate 0 07/05/23 11:21 Fraction of Inspired Oxygen (FIO2) 24 07/04/23 07:33 Pain Level 0 07/05/23 11:21 Comment RN Notified 07/04/23 20:37 Intake & Output 07/04/23 07/05/23 07/05/23 23:59 11:59 23:59 Intake Total 160 / 1010 360 / 520 160 / 520 Output Total 850 / 1250 650 / 650 Balance -690 / -240 -290 / -130 160 / -130 Intake: IV 160 / 170 120 / 280 160 / 280 Oral 240 / 240 Output: Urine 850 / 1250 550 / 550 Stool 100 / 100 Other: Urine Color Pale Pale Yellow Yellow Yellow Urine Appearance Clear Clear Clear Urine Odor Normal Normal Comment mixed with loose stool mix with stool Stool Size Smear Small Small Stool Characteristics Liquid Soft Liquid Brown Voiding Methods Bedside Commode Bedside Commode Bedside Commode Data Completed and Pending Labs on day of discharge: Labs from last 24 hours 07/05/23 07/05/23 07/02/23 Unknown 10:31 18:28 C-Reactive Protein < 0.50 Procalcitonin < 0.1 Urine Legionella Ag Negative Add-On Test Request DONE [facility] All Active Problems Acute on chronic respiratory failure with hypoxia and hypercapnia (Acute) Discharge planning issues (Acute) DVT prophylaxis (Acute) HFrEF (heart failure with reduced ejection fraction) (Chronic) Bronchiolitis (Acute) NSTEMI (non-ST elevated myocardial infarction) (Acute) Per pt. 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) Acute respiratory failure with hypoxia (Acute) COVID (Acute) Depression (Chronic) Bipolar 1 disorder (Chronic) Diabetes (Chronic) Cholelithiasis (Chronic) Ventral hernia (Acute) Leukocytosis (Acute) Pleural effusion (Acute) Black tarry stools (Acute) Chronic diarrhea (Acute) Farrell's esophagus (Chronic) Esophageal ulcer with bleeding (Acute) Erosive esophagitis (Acute) Farrell's 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 (Acute) Hyperplastic colon polyp (Acute ~06/10/21) Tubular adenoma (Acute ~06/10/21) Neuroleptic induced parkinsonism (Acute) Drug-induced parkinsonism (Acute) Anemia (Chronic) Status post hip surgery (Acute) H/O: pneumonia (Acute) Abnormal chest xray (Acute) Pre-op evaluation (Acute) Medical History Esophageal stricture Chronic systolic (congestive) heart failure Aspiration pneumonia Stress-induced cardiomyopathy acute onset managed at [facility] 08/30 pressors, EF 25%, has since recovered RH Acute cardiogenic pulmonary edema Acute metabolic encephalopathy Bilateral pneumonia Hypokalemia Closed fracture of neck of left femur s/p Percutaneous Screw Fixation 08/09/22 Constipation Diabetes mellitus type 2 in obese Chronic iron deficiency anemia ETOH abuse Poorly controlled diabetes mellitus Chronic pancreatitis due to acute alcohol intoxication Alcohol abuse Per pt. states she has never had an issues with any subtances History of pilonidal cyst Anxiety Surgical History History of total left hip arthroplasty (01/19/23) S/P laparoscopic procedure cyst removed from stomach per patient S/P surgical removal of pilonidal cyst History of esophagogastroduodenoscopy (EGD) (~06/10/21) History of colonoscopy with polypectomy (~06/10/21) History of hysterectomy History of tonsillectomy History of section Family History Father Hypertension Diabetes Heart disease Social History Smoking/Tobacco Use Status: Never Smoking risk assessment performed?: Yes Alcohol Intake: never Drug use: Never Substance use type: does not use Household members: spouse Housing: apartment Number of Children: 2 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
--- NOTE | 2023-07-05 18:10 | PDOC.CMDIS ---
Date of service: 07/05/23 Time of Service: 18:10 LACE Index Scoring Tool Questions: Length of Stay (in days): 2 Was the patient admitted via the E.D.?: Yes Comorbidities: Previous M.I., Diabetes w/o Complication, Congestive Heart Failure and Chronic Pulmonary Disease E.D. Visits: 7 Answers: Total Score: 14 Risk of Readmission: High Risk Care Management Discharge Plan Reason for Hospitalization: Bronciolitis, Acute Hypoxic Hypercapnic Respiratory Failure Discharge Plan: Jennifer returned home today with no new services. CM discussed services with Jennifer, which she declined. Her drove her home via private vehicle. She will follow up with her PCP and discharge plan of care. She was happy to be going home. Patient/Family Education Needs: Review discharge instructions and limitations, discussion of self care needs including ask me three. SDOH Health Related Social Needs: No Data to Display
[2023-07-07 16:04] LABS: Mycoplasma Pneumoniae PCR Negative (Negative); Specimen source sputum
[2023-07-07 22:46] LABS: Streptococcus Pneumoniae Ag, U Negative (Negative)
== END 2023-07-05 16:02 | disposition home or self-care (01) | DRG 280 ==
LOC: ER 16:47 → ICU 17:41 → MS 21:17
PROVIDERS: Family Medicine; Internal Medicine; Admitting Provider Internal Medicine; Emergency Provider Emergency Medicine; PCP Nurse Practitioner Family; Visit Provider Internal Medicine
DX: I21.A1 Myocardial infarction type 2 (principal); J96.21 Acute and chronic respiratory failure with hypoxia; J96.22 Acute and chronic respiratory failure with hypercapnia; J21.9 Acute bronchiolitis, unspecified; G21.11 Neuroleptic induced parkinsonism; I50.22 Chronic systolic (congestive) heart failure; I51.81 Takotsubo syndrome; E11.9 Type 2 diabetes mellitus without complications; Z79.4 Long term (current) use of insulin; K22.2 Esophageal obstruction; F31.9 Bipolar disorder, unspecified; K80.20 Calculus of gallbladder without cholecystitis without obstruction; K52.9 Noninfective gastroenteritis and colitis, unspecified; K22.70 Barrett's esophagus without dysplasia; D50.9 Iron deficiency anemia, unspecified; F41.9 Anxiety disorder, unspecified; Z96.642 Presence of left artificial hip joint; Z93.1 Gastrostomy status; J45.909 Unspecified asthma, uncomplicated; R05.3 Chronic cough
CPT/HCPCS: 00123; 36415; 80048; 82805; 84145; 87449; 87637; 93005; 94618; 94640; 96360; 99291; J1650; 71045; 83735; 84484; 85025; 86140; 87070; 87205; 87581; 87899; 93010; 93306; 94660; 94667; 94668; 94760; 99223; 99232; 99238; J0696; J1815; J3490; J7512; J7613; J7620

== ENCOUNTER 2023-12-03 14:50 | Outpatient (REF) | payer MEDICAID, SELFPAY ==
--- OUTSIDE RECORDS SUMMARY | 2023-12-03 14:53 | XMS_ITS | Encounter Summary ---
Author Organization [facility] Address [facility] [place] [address] Care Team Providers Care Immigration Associate Name Role Phone Ana Gillespie APRN Primary Care Provider [phone] Encounter Details Date Type Department Care Team (Late st Contact Info) Description 11/05/2023 8:36 AM EDT Anesthesia [place] [phone] Daryl Carmona MD [facility] [place] [address] Anesthesia Record Procedure Summary Procedure Name Responsible Anesthesiologist Anesthesia Start Time Anesthesia Stop Time EGD-DILATATION BY SOUND OR BOUGIE, SINGLE OR MULTIPLE PASSES (WRVU 1.28) (Trunk) Daryl Carmona MD 11/05/23 0836 11/05/23 0910 Events Date Time Event Comment 11/05/2023 0826 0836 Start 0836 An Start Data 0836 AN Verify 0839 An Induction 0840 An Intubation 0841 Anesthesia Ready 0859 Extubation/LMA Out 0900 an stop data 0910 Recovery or ICU Handoff Sayra ent care was transferred to the destination unit staff after review of the patient's medical history, current anesthetic/surgical status and plan, according to the Provider Handoff Checklist. 0910 Stop Meds Name Total propofoL 100 mg succinylcholine 80 mg ciprofloxacin 400 mg lactated ringers infusion 200 mL * Agents Name O2 Sevoflurane (et) * Blood No blood administrations on file. Lines, Drains, and Airways Type Details Placement Removal Enterostomy Tube 03/10/23; 1618; gastrostomy tube with balloon (16F); LUQ (left upper quadrant); feeding; MD Trish G-Tube exchange 16Fr. 07/09/23, 09/17/23 exchanged with 16fr by ROSLYN Cooper, 10/14/23 Tube exchange 16 fr, MD Hart 03/10/23 1618 by Sergey Jordan RN PIV 11/05/23; 0745; [id number] catheter system; 22 gauge, 1 in length; TL; 1; by AMA; 11/05/23; 0944 11/05/23 0745 by Mary Peace RN 11/05/23 0944 by Valerie Johnson RN documented in this encounter Social History Tobacco Use Types Packs/Day Years Used Date Smoking Tobacco: Former Cigarettes 1 - 02/26/2021 Smokeless Tobacco: Never Alcohol Use Standard Drinks/Week Comments Not Currently 0 (1 standard drink = 0.6 oz pur e alcohol) Sex and Gender Information Value Date Recorded Sex Assigned at Not on file Gender Identity Not on file Sexual Orientation Not on file documented as of this encounter OR Notes * Anesthesia Postprocedure Evaluation - Daryl Carmona MD - 11/05/2023 1:22 PM EDT Department of Anesthesiology Post-procedure Note Patient: Jennifer Irving Procedure Summary Date: 11/05/23 Room / Location: [facility] ENDO 2 / [facility] ENDOSCOPY Anesthesia Start: 835 Anesthesia Stop: 909 Procedures: EGD-DILATATION BY SOUND OR BOUGIE, SINGLE OR MULTIPLE PASSES (WRVU 1.28) (Trunk) EGD-ESOPHOGEAL DILATATION OVER GUIDE WIRE (WRVU 2.91) Diagnosis: Peptic stricture of esophagus (petic stricture - follow-up dilation in 2-3 weeks) Surgeons: David Dejesus MD Responsible Provider: Daryl Carmona MD Anesthesia Type: general ASA Status: 2 All Anesthesia Providers: Anesthesiologist: Daryl Carmona MD LIQUOR MAKER: Annie Alfonso CRNA Vitals Value Taken Time BP 125/64 11/05/23 0920 Temp Pulse Resp 16 11/05/23 0902 SpO2 97 % 11/05/23 0940 Pain Level 0 11/05/23 0902 Vitals shown include unfiled device data. Patient Location: PACU/SDP Level of Consciousness: Conscious but Sleepy Pain Management: Satisfactory Analgesia PONV: None Cardiovascular Status: Hemodynamically Stable Respiratory Status: Stable Respiratory Status Postoperative Fluid Status: Intravascular EUvolemia Possible Anesthetic Complications: NONE apparent at time of evaluation Final Primary Anesthesia Type: General (The anesthetic type performed was the same as planned.) Comments: * Anesthesia Preprocedure Evaluation - Daryl Carmona MD - 11/04/2023 5:07 PM EDT Pre-Anesthesia Evaluation for: Jennifer Irving a 63 y.o. female. Procedure(s): [facility], [facility] Patient Active Problem List Diagnosis Date Noted ??? Stress-induced cardiomyopathy 01/15/2023 ??? 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 Bipolar disorder 02/12/2022 ??? BMI 37.0-37.9, adult 12/13/2014 ??? T2DM (type 2 diabetes mellitus) 12/12/2014 ??? GERD (gastroesophageal reflux disease) 03/15/2013 ??? Covington's esophagus 03/15/2013 Past Medical History: Diagnosis Date ??? Bipolar disorder 02/12/2022 Past Surgical History: Procedure Laterality Date ??? IR G-TUBE CHECK/CHANGE 11/27/2022 IR G-Tube Check/Change 11/27/2022 Hang Cooper PA [facility] INTERVENTIONL RAD ??? IR G-TUBE CHECK/CHANGE 03/10/2023 IR G-Tube Check/Change 03/10/2023 Geronimo Chambers, [facility] INTERVENTIONL RAD ??? IR G-TUBE CHECK/CHANGE 04/06/2023 IR G-Tube Check/Change 04/06/2023 Gavin Carrillo MD [facility] INTERVENTIONL RAD ??? IR G-TUBE CHECK/CHANGE 05/09/2023 IR G-Tube Check/Change [facility] INTERVENTIONL RAD ??? IR G-TUBE CHECK/CHANGE 07/09/2023 IR G-Tube Check/Change [facility] INTERVENTIONL RAD ??? IR G-TUBE CHECK/CHANGE 09/17/2023 IR G-Tube Check/Change 09/17/2023 Hang Cooper, ROSLYN [facility] INTERVENTIONL RAD ??? IR G-TUBE CHECK/CHANGE 10/14/2023 IR G-Tube Check/Change 10/14/2023 Moustapha Hart MD [facility] INTERVENTIONL RAD ??? IR G-TUBE PLACEMENT 09/11/2022 IR G-Tube Placement 09/11/2022 Moustapha Hart MD [facility] INTERVENTIONL RAD ??? IR SUTURE RELEASE 09/25/2022 IR Suture Release 09/25/2022 Yoselin Ghosh PA [facility] INTERVENTIONL RAD ??? PERCUTANEOUS GASTROSTOMY N/A 09/11/2022 PERCUTANEOUS GASTROSTOMY performed by Aiden Flores MD at [facility] CATY ??? PRO COLONOSCOPY, BIOPSY N/A 03/20/2016 COLONOSCOPY FLEXIBLE, WITH BX performed by David Dejesus MD at [facility] ENDOSCOPY ??? PRO COLONOSCOPY, DIAGNOSTIC N/A 03/01/2020 COLONOSCOPY, DIAGNOSTIC performed by David Dejesus MD at [facility] ENDOSCOPY ??? PRO ENDOSCOPIC US EXAM, ESOPH N/A 03/31/2022 UPPER EUS- ENDOSCOPIC ULTRASOUND performed by David Dejesus MD at [facility] ENDOSCOPY ??? PRO UP GI ENDOSCOPY, BALL DIL, 30MM N/A 12/24/2022 EGD,WITH DILATION ESOPHAGUS WITH BALLOON,< 30 MM (WRVU 2.67) performed by David Dejesus [facility] ENDOSCOPY ??? PRO UP GI ENDOSCOPY, BALL DIL, 30MM N/A 01/12/2023 EGD,WITH DILATION ESOPHAGUS WITH BALLOON,< 30 MM (WRVU 2.67) performed by David Dejesus [facility] ENDOSCOPY ??? PRO UP GI ENDOSCOPY, BALL DIL, 30MM N/A 02/26/2023 EGD,WITH DILATION ESOPHAGUS WITH BALLOON,< 30 MM (WRVU 2.67) performed by David Dejesus [facility] ENDOSCOPY ??? PRO UP GI ENDOSCOPY, BALL DIL, 30MM N/A 03/16/2023 EGD,WITH DILATION ESOPHAGUS WITH BALLOON,< 30 MM (WRVU 2.67) performed by David Dejesus [facility] ENDOSCOPY ??? PRO UP GI ENDOSCOPY, BALL DIL, 30MM N/A 03/30/2023 EGD,WITH DILATION ESOPHAGUS WITH BALLOON,< 30 MM (WRVU 2.67) performed by David Dejesus [facility] ENDOSCOPY ??? PRO UP GI ENDOSCOPY, BALL DIL, 30MM N/A 04/30/2023 EGD,WITH DILATION ESOPHAGUS WITH BALLOON,< 30 MM (WRVU 2.67) performed by David Deejsus [facility] ENDOSCOPY ??? PRO UP GI ENDOSCOPY, BALL DIL, 30MM N/A 06/01/2023 EGD,WITH DILATION ESOPHAGUS WITH BALLOON,< 30 MM (WRVU 2.67) performed by David Dejesus [facility] ENDOSCOPY ??? PRO UP GI ENDOSCOPY, BALL DIL, 30MM N/A 08/02/2023 EGD,WITH DILATION ESOPHAGUS WITH BALLOON,< 30 MM (WRVU 2.67) performed by David Dejesus [facility] ENDOSCOPY ??? PRO UP GI ENDOSCOPY, DILATN W GUIDE N/A 10/07/2023 EGD-ESOPHOGEAL DILATATION OVER GUIDE WIRE (WRVU 2.91) performed by David Dejesus MD at [facility] ENDOSCOPY ??? PRO UPPER GI ENDOSCOPY, BIOPSY N/A 04/03/2014 UPPER GASTROINTESTINAL ENDOSCOPY,WITH BIOPSY SINGLE OR [facility]IPLE [facility]?? PRO UPPER GI ENDOSCOPY, BIOPSY N/A 03/20/2016 EGD WITH BIOPSY performed by David Dejesus MD at [facility] ENDOSCOPY ??? PRO UPPER GI ENDOSCOPY, BIOPSY N/A 11/22/2018 EGD WITH BIOPSY (WRVU 2.49) performed by David Dejesus MD at [facility] ENDOSCOPY ??? PRO UPPER GI ENDOSCOPY, BIOPSY N/A 03/01/2020 UPPER GASTROINTESTINAL ENDOSCOPY,WITH BIOPSY SINGLE OR MULTIPLE (WRVU 2.49) performed by David Dejesus MD at [facility] ENDOSCOPY ??? PRO UPPER GI ENDOSCOPY, BIOPSY N/A 09/23/2021 EGD WITH BIOPSY (WRVU 2.49) performed by David Dejesus MD at [facility] ENDOSCOPY ??? PRO UPPER GI ENDOSCOPY, BIOPSY N/A 03/31/2022 EGD WITH BIOPSY (WRVU 2.49) performed by David Dejesus MD at [facility] ENDOSCOPY ??? PRO UPPER GI ENDOSCOPY, BIOPSY N/A 07/03/2022 EGD WITH BIOPSY (WRVU 2.49) performed by David Dejesus MD at [facility] ENDOSCOPY ??? PRO UPPER GI ENDOSCOPY, DIAGNOSTIC N/A 04/03/2014 EGD, UPPER GI ENDOSCOPY performed by David Dejesus MD at [facility] ENDOSCOPY ??? PRO UPPER GI ENDOSCOPY, DIAGNOSTIC N/A 03/01/2020 EGD, UPPER GI ENDOSCOPY performed by David Dejesus MD at [facility] ENDOSCOPY ??? PRO UPPER GI ENDOSCOPY, DIAGNOSTIC N/A 09/09/2022 EGD, UPPER GI ENDOSCOPY (WRVU 2.09) performed by Ayo Russ MD at [facility] MAIN OR Social History Tobacco Use ??? Smoking status: Former Current packs/day: 0.00 Types: Cigarettes Start date: 02/26/2010 Quit date: 02/26/2021 Years since quittin.6 ??? Smokeless tobacco: Never Substance Use Topics ??? Alcohol use: Not Currently Social History Substance and Sexual Activity Drug Use Never Allergies Allergen Reactions ??? Meperidine Hcl Nausea And Vomiting CIS - violently ill ??? Metformin Other (See Comments) Severe diarrhea Medications: MAR and/or home medications have been reviewed. Physical Exam: Preprocedure Vitals Current as of 11/04/23 1707 No BP, pulse, respiration, SpO2, or temperature recorded. Height: Weight: BMI: IBW: Airway Assessment: Mallampati: II Cardiovascular Assessment: system normal Pulmonary Assessment: pulmonary exam normal Dental Assessment: Misc Assessment: Last Filed Perioperative Cognitive Screening None Anesthesia Plan: ASA 2 general, with a(n) intravenous induction 63 yr old F pmhx GERD, covington's T2DM on SGLT2, bipolar, parkinson, stress cardiomyopathy (EF 32%) with peptic strictures of esophagus presenting for repeat EGD/dilation Anest x multiple for similar. H/o aspiration PNA and multiple procedures with food in esophagus. Most recent EGDs done as GETA RSI 2022 echo Interpretation Summary -Left ventricular systolic function is moderately reduced. The left ventricular ejection fraction is 32% by Dahl's biplane. The apical portions of the LV remain akinetic with preservation of the basal segments. There is no apical thrombus seen with echo enhancing agent. -RV systolic function is preserved. -There is no significant valve disease. - Compared to a study done on 08/15/22 there has been no significant change. Planning [facility] - Other Informed Consent: Anesthetic plan and risks discussed with patient. Use of blood products discussed with patient who consented to blood products. Plan discussed with LIQUOR MAKER. Anesthesia Screening documented in this encounter Plan of Treatment Upcoming Encounters Date Type Department Care Team (Late st Contact Info) Description 12/07/2023 1:00 PM EDT Appointment [place] [phone] 12/07/2023 2:00 PM EDT Office [place] [phone] Geronimo Mojica MD [facility] [place] [address] 12/27/2023 11:30 AM EDT Office [place] [phone] Noe Cuenca MD [facility] [place] [address] Scheduled Procedures Name Priority Associated Diagnoses Date/Ti me EGD, UPPER GI ENDOSCOPY (WRV U 2.09) Peptic stricture of esophagus documented as of this encounter Visit Diagnoses Not on filedocumented in this encounter Administered Medications Inactive Administered Medications - up to 3 most recent administrations Medication Order MAR Action Action Date Dose Rate Site ciprofloxacin (Cipro) 400 mg in dextrose 5% 200 mL infusion Intravenous, PRN, Starting on Wed11/05/23 at 0841, Until Wed11/05/23 at 0910, Administer over 60 Minutes, Anesthesia Intra-op Given 11/05/2023 8:41 AM EDT 400 mg lactated ringers infusion 100 mL/hr, Intravenous, CONTINUOUS, Starting on Wed11/05/23 at 0745, Until Wed11/05/23 at 0945, Endoscopy (Day of Procedure) Restarted 11/05/2023 8:36 AM EDT New Bag 11/05/2023 7:46 AM EDT 100 mL/hr 100 mL/hr propofoL (Diprivan) 10 mg/mL bolus injection (Anesthesia) Intravenous, PRN, Starting on Wed11/05/23 at 0839, Until Wed11/05/23 at 0910, Anesthesia Intra-op Given 11/05/2023 8:39 AM EDT 100 mg succinylcholine (Anectine;Quelicin) (20 mg/mL) injection Intravenous, PRN, Starting on Wed11/05/23 at 0839, Until Wed11/05/23 at 0910, Anesthesia Intra-op, Routine Given 11/05/2023 8:39 AM EDT 80 mg documented in this encounter Care Teams Immigration Associate Relationship Specialty Start Date End Date Ana Gillespie APRN [address] [place] [address] PCP - General Family Medicine 02/03/19 documented as of this encounter
--- OUTSIDE RECORDS SUMMARY | 2023-12-03 14:53 | XMS_ITS | Encounter Summary ---
Author Organization [facility] Address [facility] [place] [address] Care Team Providers Care Centrifugal Chiller Technician Name Role Phone Ana Gillespie VAUGHN Primary Care Provider [phone] Encounter Details Date Type Department Care Team (Latest Contact Info) Description 10/14/2023 Travel Social History Tobacco Use Types Packs/Day Years [...] on file documented as of this encounter Plan of Treatment Upcoming Encounters Date Type Department Care Team (Late st Contact Info) Description 12/07/2023 1:00 PM EDT Appointment Pulmonology at [place] [phone] 12/07/2023 2:00 PM EDT Office Visit Thoracic Surgery at [place] [phone] Geronimo Mojica MD [facility] [place] [address] 12/27/2023 11:30 AM EDT Office Visit Pulmonology at [place] [phone] Noe Cuenca MD [facility] [place] [address] Scheduled Procedures Name Priority Associated Diagnoses Date/Ti me EGD, UPPER GI ENDOSCOPY (WRV U 2.09) Peptic stricture of esophagus documented as of this encounter Visit Diagnoses Not on filedocumented in this encounter Care Teams Centrifugal Chiller Technician Relationship Specialty Start Date End Date Ana Gillespie APRN [address] [place] [address] PCP - General Family Medicine 02/03/19 documented as of this encounter
--- OUTSIDE RECORDS SUMMARY | 2023-12-03 14:53 | XMS_ITS | Encounter Summary ---
Author Organization [facility] Address [facility] [place] [address] Care Team Providers Care Bridge Instructor Name Role Phone Ana Gillespie APRN Primary Care Provider [phone] Encounter Details Date Type Department Care Team (Latest Contact Info) Description 11/17/2023 8:40 AM EDT Office Visit Cardiology at [address] [phone] Milagros Hernandez MD [facility] [place] [place] [place] [address] Stress-induced cardiomyopathy Social History Tobacco Use Types Packs/Day Years [...] on file documented as of this encounter Last Filed Vital Signs Vital Sign Reading Time Taken Comments Blood Pressure 129/79 11/17/2023 8:35 AM EDT Pulse 58 11/17/2023 8:35 AM EDT Temperature - - Respiratory Rate - - Oxygen Saturation 99% 11/17/2023 8:35 AM EDT Inhaled Oxygen Concentration - - Weight 62.5 kg (137 lb 11.2 oz) 11/17/2023 8:35 AM EDT Height 152.4 cm (5') 11/17/2023 8:35 AM EDT Body Mass Index 26.89 11/17/2023 8:35 AM EDT documented in this encounter Patient Instructions * Patient Instructions* Milagros Hernandez MD - 11/17/2023 8:40 AM EDT No medical changes Keep doing what you are doing Let me know when you are scheduled for surgery I have requested 6 month follow up for routine care but we will schedule a visit in advance of surgery when we know the date documented in this encounter Progress Notes * Milagros Hernandez MD - 11/17/2023 8:40 AM EDT Images from the original note were not included. [facility] [place] 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 sacubitriL-valsartan (Entresto) 24-26 mg tablet 1 tablet by Per G Tube route 2 times daily. 60 tablet 4 Miscellaneous Medical Supply Kit 1 Aluminum adjustable rolling walker 1 kit 0 metoprolol succinate XL (Toprol-XL) 50 mg ER 24 hr tablet Take 25 mg (1/2 tab) via g-tube bid. 30 tablet 12 buPROPion XL (Wellbutrin XL) 300 mg XL 24 hr tablet 300 mg every morning. Via G-tube QUEtiapine (SEROquel) 100 mg tablet Take 100 mg by mouth daily. ondansetron (Zofran) 4 mg tablet Take 4 mg by mouth every 8 hours as needed for Nausea. insulin isophane- NPH 100 unit/mL (3 mL) Insulin Pen Administer 20 units at start of your feed and 20 units 6 hours into your feed 45 mL 3 ergocalciferoL, vitamin D2, (vitamin D2) 50,000 unit capsule Take 1 capsule by mouth every 14 days.6 capsule 3 MELATONIN ORAL Take 9 mg by mouth nightly as needed. Via g tube acetaminophen (Tylenol) 160 mg/5 mL Liquid Take 15 mg/kg/dose by mouth every 4 hours as needed for Fever. 1000 mg bid sucralfate (Carafate) 1 gram tablet Take 1 tablet by mouth 4 times daily. 360 tablet 3 insulin aspart U-100 (NovoLOG FlexPen U-100 Insulin) 100 unit/mL (3 mL) Insulin Pen Check your blood sugar 6 hours and 12 hours into your feed. If your blood sugars are elevated, give novolog based on the following scale: 150-170: 1 unit; 171-190 GIVE 2 units; 191-210 GIVE 3 units; 211- 230 GIVE 4 units; 231-250 GIVE 5 units; >250 GIVE 6 units 12 mL 12 atorvastatin (Lipitor) 80 mg tablet 1 tablet by Per G Tube route every evening. 90 tablet 3 empagliflozin (Jardiance) 10 mg tablet Take 1 tablet by mouth daily. 90 tablet 3 ferrous sulfate 300 mg (60 mg iron)/5 mL Liquid 5 mLs by Per G Tube route every other day. 150 mL 12 folic acid (Vitamin B9) 1 mg tablet 1 tablet by Per G Tube route daily. 90 tablet 3 insulin glargine-yfgn (Semglee) 100 unit/mL Solution Inject 10 Units subcutaneously nightly. (Patient taking differently: Inject subcutaneously nightly. Lantus) 5 mL 3 valproate (Depakene) 250 mg/5 mL (5 mL) Solution 6 mLs by Per G Tube route every 6 hours. (Patient taking differently: 300 mg by Per G Tube route every 8 hours.) 600 mL 3 pantoprazole EC (Protonix) 40 mg Tablet, Delayed Release (E.C.) Take 1 tablet by mouth 2 times daily. 180 tablet 3 Blood Sugar Diagnostic (ONETOUCH ULTRA TEST) Strip 1 each by Other route 3 times daily. by Other route. 1 box = 100 test strips; 3 boxes = 300 test strips. 300 each 3 lancets (ONE TOUCH DELICA) 33 gauge Misc 1 each by Other route 3 times daily. by Other route. 1 box= 100 test strips; 3 boxes = 300 test strips. 300 each 3 Blood-Glucose Meter (ONETOUCH ULTRA2) Kit by Other route. 1 = one blood glucose meter kit. 1 each 0 Insulin Sheldon, Disposable, (BD INSULIN PEN NEEDLE UF MINI) 31 x 3/16 Need[address] [facility].(Non-Drug; Combo Route) route 3 times daily as needed. 100 each 11 ciprofloxacin (Cipro) 500 mg tablet Take 1 tablet by mouth 2 times daily. (Patient not taking: Reported on 11/17/2023) 6 tablet 0 ciprofloxacin (Cipro) 500 mg tablet Take 1 tablet by mouth 2 times daily. (Patient not taking: Reported on 11/17/2023) 6 tablet 0 ciprofloxacin (Cipro) 500 mg tablet Take 1 tablet by mouth 2 times daily. (Patient not taking: Reported on 11/17/2023) 6 tablet 0 ciprofloxacin (Cipro) 500 mg tablet Take 1 tablet by mouth 2 times daily. (Patient not taking: Reported on 11/17/2023) 14 tablet 0 gabapentin (Neurontin) 300 mg capsule 900 mg by Per G Tube route 3 times daily. No current facility-administered medications for this visit. Subjective: Patient ID: Jennifer Irving is a 63 y.o. female with a cardiovascular history of stress cardiomyopathy complicated by acute HFrEF and cardiogenic shock. Medical history is otherwise notable for BPAD with neuroleptic induced Parkinsonism, IDDM2, chronic aspiration s/p GT placement, alcohol use disorder (reported to be in remission for 1.5 years) c/b chronic pancreatitis, iron deficiency anemia, GERD c/b esophagitis, Farrell's esophagus and esophageal stricture. She established with me in Cardiology clinic in Jan 2023 and presents today for overdue follow up. HPI Ms. Irving had a complicated hospitalization in August 2022 after she developed a stress cardiomyopathy following operative fixation of a left femoral neck fracture. She was found obtunded at homeby her with hypoxia, evidence of aspiration pneumonia bilaterally on CT scan and with a reduced LVEF and shock, felt multifactorial cardiogenic and distributive. She was initially treated on the Cardiology service for her shock and pneumonia, was optimized in terms of GDMT for her HFrEF andunderwent CT coronaries which excluded an ischemic cause of her cardiomyopathy. Due to multiple ongoing medical issues, she was transferred to Hospital Medicine after about two weeks for ongoing care. Ultimately she was hospitalized for nearly six weeks and was discharged in mid- September with a G-tube in place due to esophageal stricture/dysmotility and severe oropharyngeal dysphagia felt to be underlying severe chronic aspiration leading to pneumonia. From the cardiac perspective, GDMT at dischargeincluded metoprolol succinate 50mg po qd, Entresto 24-26mg po bid, spironolactone 12.5mg po qd, empa gliflozin 10mg po qd. She was also discharged on atorvastatin 80mg po qd for primary prevention in the setting of DM2 (CCS [address] Following discharge she underwent serial dilations of an esophageal stricture and is closely following in GI for this, planning to continue this therapy. Janett underwent repeat TTE in November 2023 which showed recovery of her LVEF. She established with me in January in clinic and was doing well from the perspective of her heart, although she and her reported that her L femoral hip repair had failed due to poor vascular supply and she was planned for a replacement. She had some issues with lower blood pressures and via phone communication we discontinued her spironolactone with plans for continued monitoring. She underwent additional esophageal stricture dilations and unfortunately was admitted to [facility] at the end of February shortly after an EGD with a new pneumonia, at which point multiple changes to her cardiac medications were made which I did not agree with (spironolactone resumed, metoprolol succinate switched to tartrate because the provider felt giving succinate was too much all at once when crushed for the GTube. In follow up I asked her to stop spironolactone again due to lower blood pressures, and transition back to metoprolol succinate, the timing of effect of which is not at all impacted by crushing the pills. Following that time she resumed serial stricture dilations by EGD and also underwent GTube exchange due to dislodgment at the end of March. My last visit with her was a Telehealth visit in April (dash sitioned to Telehealth last minute based on patient request due to inclement weather). She reporteddoing well at that time but her Rogelio was not present for the call and we were unable to reconcile meds at that visit (he manages them). We planned for follow up in the Spring in person, but unf ortunately this visit which was scheduled for September was a no show. In the interim since her last visit with me in April, she had another admission to [facility] in June 2023 for COPD which was complicated by a Type II NSTEMI. The dedicated truck driver business integration analyst here was contacted and recommended a TTE, however, it is not clear whether or not this was done as we done not have any records from that hospitalization. She has had multiple G-tube exchanges due to issues with occlusion. She has continued to undergo serial EGD and dilation of esophageal stricture. On review of the procedural notes, it does not seem she is having any significant improvement with this. She presents today with her Rogelio. She reports today she is feeling well. They have no concerns they wish addressed. They share that due to failure to improve with esophageal dilations, she is being referred to surgery for consideration of surgical intervention. They understand that based on her prior cardiac issues, she would be at increased risk of a recurrent episode of Takotsubo and that she should have a dedicated pre-operative assessment once her surgical options are delineated and a timeline is established. She would like to get surgery if she can- she is frustrated to not be able to eat. She and Rogelio are aware that her heart showed some signs of stress during her hospitalization in June. They report she did have an echocardiogram at that time but unfortunately we do not have those results. There is no evidence that providers at [facility] reached back out to Cardiology here so presumably the echo was reassuring but we will need to obtain these results. They monitor her blood pressure at home and it has been good. Rogelio confirms she is taking the split dosing of metoprolol, full dose 24-26 bid Entresto and has remained off spironolactone. She denies chest pain, dyspnea, leg swelling. Review of Systems As per HPI. 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 No murmur. Respirations unlabored, CTAB Ext WWP, no edema Non-diaphoretic AAOx3, face symmetric. Moving all extremities. Appropriate, cooperative. No results found for this or any previous visit (from the past 72 hour(s)). Lipid Panel Lab Results Component Value Date CHLPL 110 08/29/2022 HDL 34 08/29/2022 CHOLHDL 3.2 08/29/2022 TRIG 127 08/29/2022 LDLCHOL 51 08/29/2022 ECG (01/15/23): personally reviewed and interpreted Sinus bradycardia, low voltage, otherwise normal TTE ([facility], 11/20/22): TTE (08/19/22): Interpretation Summary -Left ventricular systolic function is [...] 08/15/22 there has been no significant change. CTA Coronary Arteries (08/27/22): IMPRESSION Coronary calcium score of 0, consistent with no detectable calcified atherosclerotic plaque burden. No evidence of stenosing soft plaque on the coronary CT arteriogram. CAD RADS 0 Ongoing bilateral pulmonary infectious/inflammatory changes with persistent consolidative opacity especially in the left lower lobe. This could represent a multifocal pneumonia. Recommend follow-up CT in 3 months to assess for resolution. Assessment and Plan: # Suspected Stress Cardiomyopathy now with recovered LVEF (25% => 55%) # History of HFrEF # History of Cardiogenic Shock Assessment - She has had resolution of her HFrEF on medical therapy and with supportive care for the inciting events as of her most recent echo on file. We will need to obtain her echo from June at [facility] which I do not have the results of as of yet. We discussed that people who have had stress ca rdiomyopathy are at increased risk of recurrence in the future and that we will want to be vigilantaround the time of physical stressors and carefully manage her medications. She appears to be doingwell in terms of her heart at this time. - Continue current medical therapy - Continue metoprolol succinate 25mg po bid [Do not switch this to tartrate on an outpatient basis.Crushing succinate does not impact its duration of action which is chemically based not capsule-release based. Crushed succinate has a duration of action of 24 hours, the same as if the patient swallowed the pill.] - Continue Entresto at current dosing 24-26mg bid - Spironolactone discontinued in February; no indication to resume - Continue Jardiance - Obtain most recent echocardiogram results from June at [facility] - Patient to reach out once surgical plan/options and timing delineated for dedicated pre-operativeassessment # Return to Care - In 6 months for routine follow up unless surgery is planned sooner than this - Call with issues A total of 30 minutes was spent today in review of the records, personal interpretation of testing results, medication reconciliation, interview, counseling of the patient, coordination of care and documentation of the above. Thank you for the opportunity to participate in this patient's cardiovascular care. All questions were answered and I look forward to the next visit. Milagros Hernandez MD Cardiovascular Medicine [facility] 11/17/2023 documented in this encounter Plan of Treatment Upcoming Encounters Date Type Department Care Team (Late st Contact Info) Description 12/07/2023 1:00 PM EDT [place] [address] 12/07/2023 2:00 PM EDT Office Visit Thoracic Surgery at [place] [phone] Geronimo Mojica MD [facility] [place] [address] 12/27/2023 11:30 AM EDT [place] [address] Noe Cuenca MD [facility] [place] [address] Scheduled Procedures Name Priority Associated Diagnoses Date/Ti me EGD, UPPER GI ENDOSCOPY (WRV U 2.09) Peptic stricture of esophagus documented as of this encounter Visit Diagnoses Diagnosis Stress-induced cardiomyopathy Takotsubo syndrome documented in this encounter Care Teams Bridge Instructor Relationship Specialty Start Date End Date Ana Gillespie APRN [address] [place] [address] PCP - General Family Medicine 02/03/19 documented as of this encounter
--- OUTSIDE RECORDS SUMMARY | 2023-12-03 14:53 | XMS_ITS | Encounter Summary ---
Author Organization [facility] [place] [address] Care Team Providers Care Housekeeper/Laundry Assistant Name Role Phone Ana Gillespie APRN Primary Care Provider [phone] Encounter Details Date Type Department Care Team (Late st Contact Info) Description 10/07/2023 [place] [phone] David Dejesus MD [facility] [place] [address] Social History Tobacco Use Types Packs/Day Years [...] 12/07/2023 1:00 PM EDT [place] [phone] 12/07/2023 2:00 PM EDT Office [place] [address] Geronimo Mojica MD [facility] [place] [address] 12/27/2023 11:30 AM EDT [place] [address] Noe Cuenca MD [facility] [place] [address] Scheduled Procedures Name Priority Associated Diagnoses Date/Ti me EGD, UPPER GI ENDOSCOPY (WRV U 2.09) Peptic stricture of esophagus documented as of this encounter Visit Diagnoses Not on filedocumented in this encounter Care Teams Housekeeper/Laundry Assistant Relationship Specialty Start Date End Date Ana Gillespie APRN [address] [place] [address] PCP - General Family Medicine 02/03/19 documented as of this encounter
--- OUTSIDE RECORDS SUMMARY | 2023-12-03 14:53 | XMS_ITS | Data Portability ---
Author Organization [place] - [facility] [place] [address] Care Team Providers Care Group Manager Name Role Phone CHRIS STANLEY Primary Care Provider AGGIE PUGA OTHER RICHARD SANTANA OTHER FLAVIO MOSELEY OTHER [phone] Assessment Encounter Date Assessment Date Assessment LastModified by Organization Details LastModified Time 07/16/2023 07/16/2023 The following concerns were reviewed today. We agree to follow-up in 2 weeks at which time A1C will be completed. [email or web address] Not available 07/16/2023 15:30:54 Plan of Treatment Reminders Order Date Submit Date Provider Last Modified By Organization Details Last Modified Time Details Appointments Follow Up 30 2023 11:00A Antonette STANLEY, Not available Not available Not available Office Visit 30 2023 10:30A Antonette STANLEY, Not available Not available Not available Lab hemoglobi n A1C, fingersti ck 2023 024 [facility], [address] [place] [address], [id number], 07/30/2023 12:19:14 Referral None recorded. Procedures None recorded. Surgeries None recorded. Imaging None recorded. Medication Orders Mapap (acetamin ophen) 500 mg/15 mL oral liquid 2023 024 [facility], [address] [facility], [place], [address], 06/30/2023 10:46:36 Desitin 40 % topical paste 2023 024 JOSE MANUEL [facility], [address] [place], [address], 07/16/2023 09:39:52 fluconazo le 40 mg/mL oral suspensio n 2023 024 JOSE MANUEL [facility], [address] [place], [address], 07/30/2023 10:47:32 Cymbalta 20 mg capsule,d elayed release 2023 024 [facility], [address] [place], [address], 12/03/2023 11:06:36 duloxetin e 60 mg capsule,d elayed release 2023 024 JOSE MANUEL [facility], [address] [place], [address], 09/01/2023 11:42:23 ondansetr on HCl 4 mg tablet 2023 024 [email or web address] [facility], [address] [place], [address], 09/01/2023 11:26:22 Entresto 24 mg-26 mg tablet 2023 024 [email or web address] [facility], [address] [place], [address], 09/01/2023 11:26:22 Patient TargetsNo targets recorded. Patient InstructionsNo instructions recorded. 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 once visit is complete please send us the office notes. 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 Cuenca Referring Physician: Chris Stanley Family Medicine, Encounter Date: 05/21/2023 [employer] Referral for Hea ring loss to go with ENT referral Referring Physician: Chris Stanley Family Medicine, Encounter Date: 04/12/2023 Results Created Date Observation Date Name Description Value Unit Range Abnormal Flag LastModifiedBy Organization Detail LastModifiedTime 06/29/19 24 06/29/2023 influ marco (A+B) Ag, qual, rapid , nose Influenza A negati ve Not Available [address], [address], 06/29/2023 08:40:52 06/29/19 24 06/29/2023 influ marco (A+B) Ag, qual, rapid , nose Influenza B negati ve Not Available [address], [address], 06/29/2023 08:40:52 07/02/19 24 07/02/2023 VENOU S BLOOD GAS pH (venous) 7.27 7.31-7 .41 low Not Available [address] [place], [address] 07/02/2023 12:28:02 07/02/19 24 07/02/2023 VENOU S BLOOD GAS pCO2 (venous) 71 mmHg 41-51 panic high Not Available [address] [place], [address] 07/02/2023 12:28:02 07/02/19 24 07/02/2023 VENOU S BLOOD GAS pO2 (venous) 44 mmHg Not Available [address] [place], [address] 07/02/2023 12:28:02 07/02/19 24 07/02/2023 VENOU S BLOOD GAS TCO2 (venous) 30 mmol/ L 24-29 high Not Available [address] [place], [address] 07/02/2023 12:28:02 07/02/19 24 07/02/2023 VENOU S BLOOD GAS HCO3 (venous) 32 mmol/ L 23-28 high Not Available [address] [place], [address] 07/02/2023 12:28:02 07/02/19 24 07/02/2023 VENOU S BLOOD GAS BE (venous) 5 mmol/ L -2-3 high Not Available [address] [place], [address] 07/02/2023 12:28:02 07/02/19 24 07/02/2023 VENOU S BLOOD GAS O2 sat (venous) 71 % Not Available [address], [address] 07/02/2023 12:28:02 07/02/19 24 07/02/2023 COMPL ETE BLOOD COUNT W/DIF F WBC 14.79 10_3/ uL 4.4-10 .8 high Not Available [address] [place], [address] 07/02/2023 12:30:06 07/02/19 24 07/02/2023 COMPL ETE BLOOD COUNT W/DIF F RBC 4.78 10_6/ uL 3.93-5 .22 normal Not Available [address] [place], [address] 07/02/2023 12:30:06 07/02/19 24 07/02/2023 COMPL ETE BLOOD COUNT W/DIF F HGB 13.6 g/dL 11.2-1 5.7 normal Not Available [address] [place], [address] 07/02/2023 12:30:06 07/02/19 24 07/02/2023 COMPL ETE BLOOD COUNT W/DIF F HCT 42.3 % 36.0-4 6.0 normal Not Available [address] [place], [address] 07/02/2023 12:30:06 07/02/19 24 07/02/2023 COMPL ETE BLOOD COUNT W/DIF F MCV 89 fL 80-95 normal Not Available [address] [place], [address] 07/02/2023 12:30:06 07/02/19 24 07/02/2023 COMPL ETE BLOOD COUNT W/DIF F MCH 28.5 pg 27.0-3 3.0 normal Not Available [address] [place], [address] 07/02/2023 12:30:06 07/02/19 24 07/02/2023 COMPL ETE BLOOD COUNT W/DIF F MCHC 32.2 % 32.0-3 6.0 normal Not Available [address] [place], [address] 07/02/2023 12:30:06 07/02/19 24 07/02/2023 COMPL ETE BLOOD COUNT W/DIF F RDW 15.4 % 11.7-1 4.6 high Not Available [address] [place], [address] 07/02/2023 12:30:06 07/02/19 24 07/02/2023 COMPL ETE BLOOD COUNT W/DIF F platelet count 244 10_3/ uL 130-40 0 normal Not Available [address] [place], [address] 07/02/2023 12:30:06 07/02/19 24 07/02/2023 COMPL ETE BLOOD COUNT W/DIF F MPV 10.8 fL 8.0-11 .0 normal Not Available [address] [place], [address] 07/02/2023 12:30:06 07/02/19 24 07/02/2023 COMPL ETE BLOOD COUNT W/DIF F neutrophils % 74.3 Not Available [address] [place], [address] 07/02/2023 12:30:06 07/02/19 24 07/02/2023 COMPL ETE BLOOD COUNT W/DIF F lymphocytes % 10.8 Not Available [address] [place], [address] 07/02/2023 12:30:06 07/02/19 24 07/02/2023 COMPL ETE BLOOD COUNT W/DIF F monocytes % 5.3 Not Available [address] [place], [address] 07/02/2023 12:30:06 07/02/19 24 07/02/2023 COMPL ETE BLOOD COUNT W/DIF F eosinophils % 8.6 Not Available [address] [place], [address] 07/02/2023 12:30:06 07/02/19 24 07/02/2023 COMPL ETE BLOOD COUNT W/DIF F basophils % 0.7 Not Available [address] [place], [address] 07/02/2023 12:30:06 07/02/19 24 07/02/2023 COMPL ETE BLOOD COUNT W/DIF F immature grans % 0.3 Not Available [address] [place], [address] 07/02/2023 12:30:06 07/02/19 24 07/02/2023 COMPL ETE BLOOD COUNT W/DIF F nucleated RBC 0.0 % 0.0-0. 3 normal Not Available [address] [place], [address] 07/02/2023 12:30:06 07/02/19 24 07/02/2023 COMPL ETE BLOOD COUNT W/DIF F absolute neutrophil count 10.99 10_3/ uL 1.2-6. 7 high Not Available [address] [place], [address] 07/02/2023 12:30:06 07/02/19 24 07/02/2023 COMPL ETE BLOOD COUNT W/DIF F absolute lymphocyte count 1.60 10_3/ uL 1.2-3. 4 normal Not Available [address] [place], [address] 07/02/2023 12:30:06 07/02/19 24 07/02/2023 COMPL ETE BLOOD COUNT W/DIF F absolute monocyte count 0.78 10_3/ uL 0.1-0. 8 normal Not Available [address] [place], [address] 07/02/2023 12:30:06 07/02/19 24 07/02/2023 COMPL ETE BLOOD COUNT W/DIF F absolute eosinophil count 1.27 10_3/ uL 0.0-0. 7 high Not Available [address] [place], [address] 07/02/2023 12:30:06 07/02/19 24 07/02/2023 COMPL ETE BLOOD COUNT W/DIF F absolute basophil count 0.10 10_3/ uL 0.0-0. 2 normal Not Available [address] [place], [address] 07/02/2023 12:30:06 07/02/19 24 07/02/2023 BASIC METAB OLIC PANEL calcium 9.8 mg/dL 8.5-10 .1 normal Not Available [address] [place], [address] 07/02/2023 12:47:07 07/02/19 24 07/02/2023 BASIC METAB OLIC PANEL glucose 113 mg/dL 74-106 high Not Available [address] [place], [address] 07/02/2023 12:47:07 07/02/19 24 07/02/2023 BASIC METAB OLIC PANEL BUN 11 mg/dL 7-18 normal Not Available [address] [place], [address] 07/02/2023 12:47:07 07/02/19 24 07/02/2023 BASIC METAB OLIC PANEL creatinine 0.8 mg/dL 0.55-1 .02 normal Not Available [address] [place], [address] 07/02/2023 12:47:07 07/02/19 24 07/02/2023 BASIC METAB OLIC PANEL estimated GFR 82.74 mL/min /1.73m 2 Not Available [address] [place], [address] 07/02/2023 12:47:07 07/02/19 24 07/02/2023 BASIC METAB OLIC PANEL sodium 142 mmol/ L 136-14 5 normal Not Available [address] [place], [address] 07/02/2023 12:47:07 07/02/19 24 07/02/2023 BASIC METAB OLIC PANEL potassium 4.5 mmol/ L 3.5-5. 1 normal Not Available [address] [place], [address] 07/02/2023 12:47:07 07/02/19 24 07/02/2023 BASIC METAB OLIC PANEL chloride 102 mmol/ L 98-107 normal Not Available [address] [place], [address] 07/02/2023 12:47:07 07/02/19 24 07/02/2023 BASIC METAB OLIC PANEL CO2 31.4 mmol/ L 21.0-3 2.0 normal Not Available [address] [place], [address] 07/02/2023 12:47:07 07/02/19 24 07/02/2023 BASIC METAB OLIC PANEL anion gap 8.6 mmol/ L 3-11 normal Not Available [address] [place], [address] 07/02/2023 12:47:07 07/02/19 24 07/02/2023 CARDI AC TROPO MONI I cardiac troponin I 203 NG/L < or =60 panic high Not Available [address] [place], [address] 07/02/2023 12:47:08 07/02/19 24 07/02/2023 COVID /FLU/ RSV PCR source Nasoph arynx Not Available [address] [place], [address] 07/02/2023 13:22:12 07/02/19 24 07/02/2023 COVID /FLU/ RSV PCR covid-19 PCR Negati ve negati ve Not Available [address] [place], [address] 07/02/2023 13:22:12 07/02/19 24 07/02/2023 COVID /FLU/ RSV PCR influenza A PCR Negati ve negati ve Not Available [address] [place], [address] 07/02/2023 13:22:12 07/02/19 24 07/02/2023 COVID /FLU/ RSV PCR influenza B PCR Negati ve negati ve Not Available [address] [place], [address] 07/02/2023 13:22:12 07/02/19 24 07/02/2023 COVID /FLU/ RSV PCR RSV PCR Negati ve negati ve Not Available [address] [place], [address] 07/02/2023 13:22:12 07/02/19 24 07/02/2023 VENOU S BLOOD GAS pH (venous) 7.31 7.31-7 .41 normal Not Available [address] [place], [address] 07/02/2023 14:51:21 07/02/19 24 07/02/2023 VENOU S BLOOD GAS pCO2 (venous) 58 mmHg 41-51 high Not Available [address] [place], [address] 07/02/2023 14:51:21 07/02/19 24 07/02/2023 VENOU S BLOOD GAS pO2 (venous) 42 mmHg Not Available [address] [place], [address] 07/02/2023 14:51:21 07/02/19 24 07/02/2023 VENOU S BLOOD GAS TCO2 (venous) 26 mmol/ L 24-29 normal Not Available [address] [place], [address] 07/02/2023 14:51:21 07/02/19 24 07/02/2023 VENOU S BLOOD GAS HCO3 (venous) 29 mmol/ L 23-28 high Not Available [address] [place], [address] 07/02/2023 14:51:21 07/02/19 24 07/02/2023 VENOU S BLOOD GAS BE (venous) 2 mmol/ L -2-3 normal Not Available [address] [place], [address] 07/02/2023 14:51:21 07/02/19 24 07/02/2023 VENOU S BLOOD GAS O2 sat (venous) 72 % Not Available [address], [address] 07/02/2023 14:51:21 07/02/19 24 07/02/2023 CARDI AC TROPO MONI I cardiac troponin I 434 NG/L < or =60 panic high Not Available [address] [place], [address] 07/02/2023 15:14:23 07/02/19 24 07/02/2023 CARDI AC TROPO MONI I cardiac troponin I 504 NG/L < or =60 panic high Not Available [address] [place], [address] 07/02/2023 18:00:48 07/02/19 24 07/02/2023 GRAM STAIN gram stain Not Available [address] [place], [address] 07/02/2023 20:36:09 07/02/19 24 07/02/2023 CARDI AC TROPO MONI I cardiac troponin I 500 NG/L < or =60 panic high Not Available [address] [place], [address] 07/02/2023 21:01:00 07/02/19 24 07/02/2023 LAB ADD ON TEST lab add on test DONE Not Available [address], [address] 07/02/2023 21:49:06 07/02/19 24 07/02/2023 PROCA LCITO MONI procalcitoni n < 0.1 NG/mL Not Available [address] [place], [address] 07/02/2023 22:37:10 07/02/19 24 07/03/2023 SPUTU M AEROB IC CULTU RE sputum aerobic culture Not Available [address], [address] 07/03/2023 08:51:17 07/02/19 24 07/04/2023 SPUTU M AEROB IC CULTU RE sputum aerobic culture Not Available [address] [place], [address] 07/04/2023 11:01:16 07/02/19 24 07/05/2023 SPUTU M AEROB IC CULTU RE sputum aerobic culture Not Available [address] [place], [address] 07/05/2023 09:10:04 07/02/19 24 07/07/2023 MYCOP LASMA PNEUM ONIAE , PCR specimen source sputum Not Available [address] [place], [address] 07/07/2023 16:28:33 07/02/19 24 07/07/2023 MYCOP LASMA PNEUM ONIAE , PCR mycoplasma pneumoniae PCR Negati ve negati ve Not Available [address] [place], [address] 07/07/2023 16:28:33 07/02/19 24 07/07/2023 STREP TOCOC CUS PNEUM ONIAE AG, U streptococcu s pneumoniae Ag, U Negati ve negati ve Not Available [address] [place], [address] 07/08/2023 08:43:22 07/02/19 24 07/03/2023 LEGIO SHANNON AG DETEC TION URINE legionella Ag detection urine Negati ve negati ve Not Available [address] [place], [address] 07/08/2023 08:43:22 07/03/19 24 07/03/2023 COMPL ETE BLOOD COUNT W/DIF F WBC 11.19 10_3/ uL 4.4-10 .8 high Not Available [address] [place], [address] 07/03/2023 07:26:12 07/03/19 24 07/03/2023 COMPL ETE BLOOD COUNT W/DIF F RBC 4.71 10_6/ uL 3.93-5 .22 normal Not Available [address] [place], [address] 07/03/2023 07:26:12 07/03/19 24 07/03/2023 COMPL ETE BLOOD COUNT W/DIF F HGB 13.3 g/dL 11.2-1 5.7 normal Not Available [address] [place], [address] 07/03/2023 07:26:12 07/03/1907/03/2023 COMPL ETE BLOOD COUNT W/DIF F HCT 40.7 % 36.0-4 6.0 normal Not Available [address] [place], [address] 07/03/2023 07:26:12 07/03/19 24 07/03/2023 COMPL ETE BLOOD COUNT W/DIF F MCV 86 fL 80-95 normal Not Available [address] [place], [address] 07/03/2023 07:26:12 07/03/1907/03/2023 COMPL ETE BLOOD COUNT W/DIF F MCH 28.2 pg 27.0-3 3.0 normal Not Available [address] [place], [address] 07/03/2023 07:26:12 07/03/19 24 07/03/2023 COMPL ETE BLOOD COUNT W/DIF F MCHC 32.7 % 32.0-3 6.0 normal Not Available [address] [place], [address] 07/03/2023 07:26:12 07/03/1907/03/2023 COMPL ETE BLOOD COUNT W/DIF F RDW 15.4 % 11.7-1 4.6 high Not Available [address] [place], [address] 07/03/2023 07:26:12 07/03/19 24 07/03/2023 COMPL ETE BLOOD COUNT W/DIF F platelet count 275 10_3/ uL 130-40 0 normal Not Available [address] [place], [address] 07/03/2023 07:26:12 07/03/1907/03/2023 COMPL ETE BLOOD COUNT W/DIF F MPV 11.3 fL 8.0-11 .0 high Not Available [address] [place], [address] 07/03/2023 07:26:12 07/03/19 24 07/03/2023 COMPL ETE BLOOD COUNT W/DIF F neutrophils % 74.2 Not Available [address] [place], [address] 07/03/2023 07:26:12 07/03/19 24 07/03/2023 COMPL ETE BLOOD COUNT W/DIF F lymphocytes % 16.6 Not Available [address] [place], [address] 07/03/2023 07:26:12 07/03/19 24 07/03/2023 COMPL ETE BLOOD COUNT W/DIF F monocytes % 8.0 Not Available [address] [place], [address] 07/03/2023 07:26:12 07/03/19 24 07/03/2023 COMPL ETE BLOOD COUNT W/DIF F eosinophils % 0.3 Not Available [address] [place], [address] 07/03/2023 07:26:12 07/03/19 24 07/03/2023 COMPL ETE BLOOD COUNT W/DIF F basophils % 0.5 Not Available [address] [place], [address] 07/03/2023 07:26:12 07/03/19 24 07/03/2023 COMPL ETE BLOOD COUNT W/DIF F immature grans % 0.4 Not Available [address] [place], [address] 07/03/2023 07:26:12 07/03/1907/03/2023 COMPL ETE BLOOD COUNT W/DIF F nucleated RBC 0.0 % 0.0-0. 3 normal Not Available [address] [place], [address] 07/03/2023 07:26:12 07/03/19 24 07/03/2023 COMPL ETE BLOOD COUNT W/DIF F absolute neutrophil count 8.30 10_3/ uL 1.2-6. 7 high Not Available [address] [place], [address] 07/03/2023 07:26:12 07/03/19 24 07/03/2023 COMPL ETE BLOOD COUNT W/DIF F absolute lymphocyte count 1.86 10_3/ uL 1.2-3. 4 normal Not Available [address] [place], [address] 07/03/2023 07:26:12 07/03/19 24 07/03/2023 COMPL ETE BLOOD COUNT W/DIF F absolute monocyte count 0.90 10_3/ uL 0.1-0. 8 high Not Available [address] [place], [address] 07/03/2023 07:26:12 07/03/1907/03/2023 COMPL ETE BLOOD COUNT W/DIF F absolute eosinophil count 0.03 10_3/ uL 0.0-0. 7 normal Not Available [address] [place], [address] 07/03/2023 07:26:12 07/03/19 24 07/03/2023 COMPL ETE BLOOD COUNT W/DIF F absolute basophil count 0.06 10_3/ uL 0.0-0. 2 normal Not Available [address] [place], [address] 07/03/2023 07:26:12 07/03/1907/03/2023 BASIC METAB OLIC PANEL calcium 9.7 mg/dL 8.5-10 .1 normal Not Available [address] [place], [address] 07/03/2023 07:28:10 07/03/1907/03/2023 BASIC METAB OLIC PANEL glucose 107 mg/dL 74-106 high Not Available [facility] [address] [place] [place], [address] 07/03/2023 07:28:10 07/03/19 24 07/03/2023 BASIC METAB OLIC PANEL BUN 17 mg/dL 7-18 normal Not Available [facility] [address] [place] [place], [address] 07/03/2023 07:28:10 07/03/1907/03/2023 BASIC METAB OLIC PANEL creatinine 1.0 mg/dL 0.55-1 .02 normal Not Available [address] [place], [address] 07/03/2023 07:28:10 07/03/1907/03/2023 BASIC METAB OLIC PANEL estimated GFR 63.30 mL/min /1.73m 2 Not Available [address] [place], [address] 07/03/2023 07:28:10 07/03/1907/03/2023 BASIC METAB OLIC PANEL sodium 139 mmol/ L 136-14 5 normal Not Available [address] [place], [address] 07/03/2023 07:28:10 07/03/1907/03/2023 BASIC METAB OLIC PANEL potassium 4.5 mmol/ L 3.5-5. 1 normal Not Available [address] [place], [address] 07/03/2023 07:28:10 07/03/1907/03/2023 BASIC METAB OLIC PANEL chloride 102 mmol/ L 98-107 normal Not Available [address] [place], [address] 07/03/2023 07:28:10 07/03/1907/03/2023 BASIC METAB OLIC PANEL CO2 26.2 mmol/ L 21.0-3 2.0 normal Not Available [address] [place], [address] 07/03/2023 07:28:10 07/03/1907/03/2023 BASIC METAB OLIC PANEL anion gap 10.8 mmol/ L 3-11 normal Not Available [address] [place], [address] 07/03/2023 07:28:10 07/03/1907/03/2023 MAGNE SIUM magnesium 1.9 mg/dL 1.8-2. 4 normal Not Available [address] [place], [address] 07/03/2023 07:28:10 07/04/1907/04/2023 VENOU S BLOOD GAS pH (venous) 7.53 7.31-7 .41 high Not Available [address] [place], [address] 07/04/2023 02:56:01 07/04/1907/04/2023 VENOU S BLOOD GAS pCO2 (venous) 34 mmHg 41-51 low Not Available [address] [place], [address] 07/04/2023 02:56:01 07/04/1907/04/2023 VENOU S BLOOD GAS pO2 (venous) 60 mmHg Not Available [address] [place], [address] 07/04/2023 02:56:01 07/04/1907/04/2023 VENOU S BLOOD GAS TCO2 (venous) 25 mmol/ L 24-29 normal Not Available [address] [place], [address] 07/04/2023 02:56:01 07/04/1907/04/2023 VENOU S BLOOD GAS HCO3 (venous) 28 mmol/ L 23-28 normal Not Available [address] [place], [address] 07/04/2023 02:56:01 07/04/1907/04/2023 VENOU S BLOOD GAS BE (venous) 6 mmol/ L -2-3 high Not Available [address] [place], [address] 07/04/2023 02:56:01 07/04/1907/04/2023 VENOU S BLOOD GAS O2 sat (venous) 93 % Not Available [address], [address] 07/04/2023 02:56:01 07/04/1907/04/2023 CARDI AC TROPO MONI I cardiac troponin I 192 NG/L < or =60 panic high Not Available [address] [place], [address] 07/04/2023 03:20:02 07/04/19 24 07/04/2023 COMPL ETE BLOOD COUNT W/DIF F WBC 8.91 10_3/ uL 4.4-10 .8 normal Not Available [address] [place], [address] 07/04/2023 06:19:05 07/04/19 24 07/04/2023 COMPL ETE BLOOD COUNT W/DIF F RBC 4.07 10_6/ uL 3.93-5 .22 normal Not Available [address] [place], [address] 07/04/2023 06:19:05 07/04/19 24 07/04/2023 COMPL ETE BLOOD COUNT W/DIF F HGB 11.4 g/dL 11.2-1 5.7 normal Not Available [address] [place], [address] 07/04/2023 06:19:05 07/04/1907/04/2023 COMPL ETE BLOOD COUNT W/DIF F HCT 34.8 % 36.0-4 6.0 low Not Available [address] [place], [address] 07/04/2023 06:19:05 07/04/19 24 07/04/2023 COMPL ETE BLOOD COUNT W/DIF F MCV 86 fL 80-95 normal Not Available [address] [place], [address] 07/04/2023 06:19:05 07/04/19 24 07/04/2023 COMPL ETE BLOOD COUNT W/DIF F MCH 28.0 pg 27.0-3 3.0 normal Not Available [address] [place], [address] 07/04/2023 06:19:05 07/04/19 24 07/04/2023 COMPL ETE BLOOD COUNT W/DIF F MCHC 32.8 % 32.0-3 6.0 normal Not Available [address] [place], [address] 07/04/2023 06:19:05 07/04/19 24 07/04/2023 COMPL ETE BLOOD COUNT W/DIF F RDW 16.0 % 11.7-1 4.6 high Not Available [address] [place], [address] 07/04/2023 06:19:05 07/04/19 24 07/04/2023 COMPL ETE BLOOD COUNT W/DIF F platelet count 200 10_3/ uL 130-40 0 normal Not Available [address] [place], [address] 07/04/2023 06:19:05 07/04/19 24 07/04/2023 COMPL ETE BLOOD COUNT W/DIF F MPV 11.3 fL 8.0-11 .0 high Not Available [address] [place], [address] 07/04/2023 06:19:05 07/04/19 24 07/04/2023 COMPL ETE BLOOD COUNT W/DIF F neutrophils % 57.8 Not Available [address] [place], [address] 07/04/2023 06:19:05 07/04/19 24 07/04/2023 COMPL ETE BLOOD COUNT W/DIF F lymphocytes % 31.2 Not Available [address] [place], [address] 07/04/2023 06:19:05 07/04/19 24 07/04/2023 COMPL ETE BLOOD COUNT W/DIF F monocytes % 8.9 Not Available [address] [place], [address] 07/04/2023 06:19:05 07/04/19 24 07/04/2023 COMPL ETE BLOOD COUNT W/DIF F eosinophils % 1.2 Not Available [address] [place], [address] 07/04/2023 06:19:05 07/04/19 24 07/04/2023 COMPL ETE BLOOD COUNT W/DIF F basophils % 0.7 Not Available [address] [place], [address] 07/04/2023 06:19:05 07/04/19 24 07/04/2023 COMPL ETE BLOOD COUNT W/DIF F immature grans % 0.2 Not Available [address] [place], [address] 07/04/2023 06:19:05 07/04/19 24 07/04/2023 COMPL ETE BLOOD COUNT W/DIF F nucleated RBC 0.0 % 0.0-0. 3 normal Not Available [address] [place], [address] 07/04/2023 06:19:05 07/04/19 24 07/04/2023 COMPL ETE BLOOD COUNT W/DIF F absolute neutrophil count 5.15 10_3/ uL 1.2-6. 7 normal Not Available [address] [place], [address] 07/04/2023 06:19:05 07/04/19 24 07/04/2023 COMPL ETE BLOOD COUNT W/DIF F absolute lymphocyte count 2.78 10_3/ uL 1.2-3. 4 normal Not Available [address] [place], [address] 07/04/2023 06:19:05 07/04/19 24 07/04/2023 COMPL ETE BLOOD COUNT W/DIF F absolute monocyte count 0.79 10_3/ uL 0.1-0. 8 normal Not Available [address] [place], [address] 07/04/2023 06:19:05 07/04/19 24 07/04/2023 COMPL ETE BLOOD COUNT W/DIF F absolute eosinophil count 0.11 10_3/ uL 0.0-0. 7 normal Not Available [address] [place], [address] 07/04/2023 06:19:05 07/04/1907/04/2023 COMPL ETE BLOOD COUNT W/DIF F absolute basophil count 0.06 10_3/ uL 0.0-0. 2 normal Not Available [address] [place], [address] 07/04/2023 06:19:05 07/04/1907/04/2023 BASIC METAB OLIC PANEL calcium 9.4 mg/dL 8.5-10 .1 normal Not Available [address] [place], [address] 07/04/2023 06:31:05 07/04/19 24 07/04/2023 BASIC METAB OLIC PANEL glucose 152 mg/dL 74-106 high Not Available [address] [place], [address] 07/04/2023 06:31:05 07/04/19 24 07/04/2023 BASIC METAB OLIC PANEL BUN 31 mg/dL 7-18 high Not Available [address] [place], [address] 07/04/2023 06:31:05 07/04/1907/04/2023 BASIC METAB OLIC PANEL creatinine 0.8 mg/dL 0.55-1 .02 normal Not Available [address] [place], [address] 07/04/2023 06:31:05 07/04/19 24 07/04/2023 BASIC METAB OLIC PANEL estimated GFR 82.74 mL/min /1.73m 2 Not Available [address] [place], [address] 07/04/2023 06:31:05 07/04/1907/04/2023 BASIC METAB OLIC PANEL sodium 140 mmol/ L 136-14 5 normal Not Available [address] [place], [address] 07/04/2023 06:31:05 07/04/19 24 07/04/2023 BASIC METAB OLIC PANEL potassium 3.8 mmol/ L 3.5-5. 1 normal Not Available [address] [place], [address] 07/04/2023 06:31:05 07/04/19 24 07/04/2023 BASIC METAB OLIC PANEL chloride 104 mmol/ L 98-107 normal Not Available [address] [place], [address] 07/04/2023 06:31:05 07/04/19 24 07/04/2023 BASIC METAB OLIC PANEL CO2 29.8 mmol/ L 21.0-3 2.0 normal Not Available [address] [place], [address] 07/04/2023 06:31:05 07/04/19 24 07/04/2023 BASIC METAB OLIC PANEL anion gap 6.2 mmol/ L 3-11 normal Not Available [address] [place], [address] 07/04/2023 06:31:05 07/04/19 24 07/04/2023 MAGNE SIUM magnesium 1.9 mg/dL 1.8-2. 4 normal Not Available [address] [place], [address] 07/04/2023 06:31:05 07/04/19 24 07/04/2023 CARDI AC TROPO MONI I cardiac troponin I 162 NG/L < or =60 panic high Not Available [address] [place], [address] 07/04/2023 06:45:04 07/05/19 24 07/05/2023 LAB ADD ON TEST lab add on test DONE Not Available [address] [place], [address] 07/05/2023 09:53:08 07/05/19 24 07/05/2023 C-MICHELINE CTIVE PROTE IN C-reactive protein < 0.50 mg/dL <or=0. 5 Not Available [address] [place], [address] 07/05/2023 11:32:23 07/05/19 24 07/05/2023 PROCA LCITO MONI procalcitoni n < 0.1 NG/mL Not Available [address] [place], [address] 07/05/2023 11:57:31 07/30/19 24 07/30/2023 hemog lobin A1C, finge rstic k hemoglobin A1C 6.4 % <5.7 Not Available [address], [address], 07/30/2023 11:23:08 12/03/19 24 12/03/2023 hemog lobin A1C, finge rstic k hemoglobin A1C 5.6 % <5.7 Not Available [address], [address], 12/03/2023 11:17:58 07/02/19 24 07/02/2023 elect agnes jones am EKG NONI Rodríguez NAME: Arley Norman UNIT #: [id number] ORDERI NG PROVID ER: Moustapha Baker M.D. ACCOUN T #: [id number] PRIMAR Y CARE PROVID ER: JADEN STILL,SHE Y DATE/T JULI OF SERVIC E: 112 : 1960 PERFOR HERBERT LOCATI ON: ER ------ ------ --- APPROV ED REPORT ------ ------ -- Exam: Restin g ECG Reason for Exam: sob Noni rodríguez Locati on: E HR:113 bpm ECG Measur ements Heart Rate 113 AXIS FL 143 P 64 QRSd 89 QRS 84 QT 340 T 53 QTc 466 Conclu clotilde Sinus tachyc ardia. ..rate > 99 Low voltag e, extrem ity and precor dial leads. ..extr emity< 0.5mV, precor dial<1 .0mV Probab le sienna latera l infarc t, old... Q>3 5mS, abnrm ST-T, V2-V6, I,aVL ____ Narrow comple x sinus tachyc ardia at a rate of 113. Normal axis. Interv als within normal limits . Low voltag e. Poor R wave progre ssion. T wave flatte oly in aVL. Compar ed to prior dated last month low voltag e is persis tent. T wave flatte oly in aVL appear s new. No acute injury jan n. ------ ------ ------ ------ ------ ------ ------ ------ ------ ------ ------ ------ ------ ------ ------ ------ ---- ------ - E-Sign Date: E-Sign Time: 113 [id number] [facility] [address] [place], [address] 07/02/2023 12:23:00 07/02/19 24 07/02/2023 elect agnes jones am EKG NONI Rodríguez NAME: Arley Norman UNIT #: [id number] [facility] ER: Moustapha Baker M.D. ACCOUN T #: [id number] [facility] ER: SHE STANLEY NP Y DATE/T JULI OF SERVIC E: 1126 : 1960 RADHA HERBERT LOCATI ON: ER ------ ------ --- APPROV ED REPORT ------ ------ -- Exam: Restin g ECG Reason for Exam: sob Noni rodríguez Locati on: E HR:113 bpm ECG Measur ements Heart Rate 113 AXIS FL 143 P 64 QRSd 89 QRS 84 QT 340 T 53 QTc 466 Conclu clotilde Sinus tachyc ardia. ..rate > 99 Low voltag e, extrem ity and precor dial leads. ..extr emity< 0.5mV, precor dial<1 .0mV Probab le sienna latera l infarc t, old... Q>3 5mS, abnrm ST-T, V2-V6, I,aVL ____ Narrow comple x sinus tachyc ardia at a rate of 113. Normal axis. Interv als within normal limits . Low voltag e. Poor R wave progre ssion. T wave flatte oly in aVL. Compar ed to prior dated last month low voltag e is persis tent. T wave flatte oly in aVL appear s new. No acute injury patter n. ------ ------ ------ ------ ------ ------ ------ ------ ------ ------ ------ ------ ------ ------ ------ ------ ---- ------ - E-Sign Date: E-Sign Time: 1135 ------ ------ --- ADDEND UM APPROV ED REPORT ------ ------ -- Exam: Restin g ECG Reason for Exam: sob Noni rodríguez Locati on: E HR:113 bpm ECG Measur ements Heart Rate 113 AXIS FL 143 P 64 QRSd 89 QRS 84 QT 340 T 53 QTc 466 Conclu clotilde Sinus tachyc ardia. ..rate > 99 Low voltag e, extrem ity and precor dial leads. ..extr emity< 0.5mV, precor dial<1 .0mV Probab le sienna latera l infarc t, old... Q>35mS , abnrm ST-T, V2-V6, I,aVL ____ Narrow comple x sinus tachyc ardia at a rate of 113. Normal axis. Interv als within normal limits . Low voltag e. Poor R wave progre ssion. T wave flatte oly in aVL. Compar ed to prior dated last month low voltag e is persis tent. T wave flatte oly in aVL appear s new. No acute injury jan Meredith have review ed and interp reted ECG and agree with kristine cartwright interp retati on. Electr onical ly signed by: [id number] Cosign ed by: [email or web address] [facility] [address] [facility] [place], [address] 07/02/2023 12:23:00 07/02/19 24 07/02/2023 x-ray imagi diane billingsley t Noni rodríguez Name: Arley Norman Unit #: [id number] Loc: ER Orderi diane Provid er: Moustapha Baker M.D. Accoun t #: [id number] Status : REG ER Primar y Care Provid er: Chris Stanley Date of Exam: Sex: F Admiss ion Date: : 1960 Age: 63 Exam(s ) XR PORTAB LE CHEST AP EXAM: XR PORTAB LE CHEST AP CLINIC AL HISTOR Y: Cough shortn ess of breath TECHNI QUE: 2D digita l imagin g was perfor med of the chest. One image was obtain ed. An AP view was obtain ed. COMPAR ASHLEY: CR,XR XR PORTAB LE CHEST AP from 2022 CR,XR XR CHEST 2V PA LATERA L from 2023 FINDIN GS: MEDIAS TINUM: Normal . HEART: Normal . PULMON GIOVANNY VASCUL ATURE: Normal . LUNGS: There is bronch ial wall thicke oly seen in the perihi lar region bilate rally. PLEURA L SPACE: No pleura l effusi on or pneumo thorax . BONE:W ithin normal limits for the patien t's age. OTHER FINDIN GS:Nor mal. IMPRES CLOTILDE: Perihi lar bronch ial wall thicke oly which can be seen with bronch ioliti s or small airway s diseas e. DATA REPOSI TORY: RADIAT ION DOSE DELIVE RED: Ordere d By: Moustapha Baker M.D. CC: ------ ------ ------ ------ ------ ------ ------ ------ ------ ------ ------ ------ - Dictat ed By: Aiden Bergeron M.D. [id number] Transc ribed By: Aiden Bergeron [id number] This is privil eged, confid ential inform ation intend ed only for the provid er named. Any use or distri bution by any person other than this provid er is strict ly prohib ited. If you receiv e this report in error, please notify us immedi ately at and return the origin al report to us at the addres s above. Thank- you. [email or web address] [facility] [address] [place], [address] 07/02/2023 13:39:28 07/02/19 24 07/02/2023 elect agnes karen am EKG PATIELA T NAME: Arley Norman UNIT #: [id number] [facility] ER: Moustapha Baker M.D. ACCOUN T #: [id number] PRIMAR Y CARE PROVID ER: JADEN STILL,SHE Y DATE/T JULI OF SERVIC E: 1609 : 1960 RADHA HERBERT LOCATI ON: ER ------ ------ --- APPROV ED REPORT ------ ------ -- Exam: Restin g ECG Reason for Exam: trop + Noni rodríguez Locati on: E HR:109 bpm ECG Measur ements Heart Rate 109 AXIS FL 159 P 69 QRSd 76 QRS 84 QT 334 T 55 QTc 450 Conclu clotilde Sinus tachyc ardia. ..rate > 99 Anteri or infarc t, old... Q >40mS, abnorm al ST-T, V2-V5 ____ Repeat ECG showin g narrow comple x sinus tachyc ardia rate of 109. Normal axis. Interv als within normal limits . T wave flatte oly in aVL. Compar ed to prior dated earlie r today no acute change s. T wave flatte oly in aVL is persis tent. Low voltag e is also persis tent. ------ ------ ------ ------ ------ ------ ------ ------ ------ ------ ------ ------ ------ ------ ------ ------ ---- ------ - E-Sign Date: E-Sign Time: 1655 [email or web address] [facility] [address] , [place], [address] 07/03/2023 06:42:41 07/02/1907/02/2023 histo ry physi tonya exami natio n HISTOR Y PHYSIC AL EXAMIN ATION PATIEN T NAME: Arley Norman UNIT #: [id number] ADMITT ING PROVID ER: Erin Damon M.D. ACCOUN T #: [id number] PRIMAR Y CARE PROVID ER: JADEN HISTOLOGIC TECHNICIAN,ABB Y DATE OF ADMIT: 0 4 : 1960 Date of servic e: Time of Servic e: 16:26 Assess ment and Plan Assess ment and plan (1) Acute respir atory failur e with hypoxi a and hyperc arbia: Status : Acute Assess ment and plan: in settin g of reacti ve airway s diseas e and bronch ioliti s, likely sequel a of COVID- 19. I have ordere d a procal citoni n but do not see that it's been done - asking the nursin g to follow up. Contin ue schedu led + prn nebs, empiri c ceftri axone + doxycy jaramillo initia gabbie in the ED, antitu ssives . Await sputum cultur e as well. Wean O2 as tolera gabbie. Encour age pulmon giovanny toilet . (2) Bronch ioliti s: Status : Acute Assess ment and plan: As above (3) NSTEMI (non-S T elevat ed myocar dial infarc tion): Status : Acute Assess ment and plan: Likely type 2 NSTEMI . Contin ue to monito r on tele, trend tropon ins, treat underl diana pulmon giovanny diseas e. Obtain an echoca rdiogr am. 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 Contin ue home basal bolus regime n in additi on to our SSI. (5) HFrEF (heart failur e with reduce d ejecti on fracti on): Status : Chroni c Assess ment and plan: As I unders tand it, the patien t never did get a cardia c cathet kris ion at [facility] [facility] when she first presen gabbie with the LVEF of 35%. The EF did improv e on the optima l medica l therap y. Repeat echo. Monito r volume status . Contin ue home regime n. (6) DVT prophy laxis: Status : Acute Assess ment and plan: SC enoxap deysi (7) Discha rge planni ng issues : Status : Acute Assess ment and plan: Full code Initia lly admitt ed to the ICU but is alread y being downgr aded to the medica l surgic al floor. 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 She was on antibi otics for a week for a pneumo manisha (augme ntin). It didn't help. She had COVID- 19 3 weeks ago and the cough has not stoppe d since. It is produc tive of yellow serafin sputum , but she has also felipe t up browni sh flakes . She also report s not being able to hear out of her R ear. The chest pain is associ ated with the cough and shortn ess of breath and was midcen tral. The chest pain is not there now. In the ED, satura ting 83% on RA and requir ed 1L of O2. Howeve r, VBG showed pH of 7.27 with pCO2 of 71. She was placed on BiPAP with improv ement of pH to 7.31 and pCO2 of 58. Her CXR reveal ed bronch ioliti s. She was initia gabbie on nebuli zers, steroi ds, doxycy jaramillo. She did have a mild elevat ion of her tropon in with no eviden ce of ACS by EKG. Tropon in was 203. On repeat , it was 434. [facility] cardio logy was consul gabbie and felt that this is likely demand ischem ia and did not recomm end hepari nizati on or plavix . The patien t did get aspiri n in the ED. Hospit alist admiss ion to the ICU was requallison gabbie; eliseo r, upon arriva l to the ICU, the patien t is off of BiPAP and is doing better . She is being downgr aded to the medica l surgic al floor. Review of System s All system s review ed are unrema rkable except as noted in HPI and below PFSH All Active Proble ms (Updat ed @ 20:30 by Erin Damon MD) Discha rge planni ng issues (Acute ) DVT prophy laxis (Acute ) HFrEF (heart failur e with reduce d ejecti on fracti on) (Chron ic) Bronch ioliti s (Acute ) NSTEMI (non-S T elevat ed myocar dial infarc tion) (Acute ) Per pt. 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 (Chron ic) Acute respir atory failur e with hypoxi a (Acute ) COVID (Acute ) Depres clotilde (Chron ic) Bipola r 1 disord er (Chron ic) Diabet es (Chron ic) Cholel ithias is (Chron ic) Ventra l hernia (Acute ) Leukoc ytosis (Acute ) Pleura l effusi on (Acute ) Black tarry stools (Acute ) Chroni c diarrh ea (Acute ) Thierno t's esopha jayna (Chron ic) Esopha geal ulcer with bleedi ng (Acute ) Erosiv e esopha gitis (Acute ) Thierno t's esopha jayna determ ined by endosc opy (Acute ) Hyperp lastic colon polyp (Acute ) Tubula r adenom a (Acute ) Neurol eptic induce d vance sonism (Acute ) Drug-i nduced vance sonism (Acute ) Anemia (Chron ic) Status post hip surger y (Acute ) H/O: pneumo manisha (Acute ) Abnorm al chest xray (Acute ) Pre-op evalua tion (Acute ) Medica l Histor y (Updat ed @ 20:30 by Erin Damon MD) Esopha geal strict ure Chroni c systol ic (conge stive) heart failur e Aspira tion pneumo manisha Stress -induc ed cardio myopat hy acute onset manage d at [facility] 08/30 presso rs, EF 25%, has since recove red RH Acute cardio genic pulmon giovanny edema Acute metabo lic enceph alopat hy Bilate ral pneumo manisha [place] lemia Closed fractu re of neck of left femur s/p Percut aneous Screw Fixati on 08/09/22 Consti pation Diabet es mellit us type 2 in obese Chroni c iron defici ency anemia ETOH abuse Poorly contro lled diabet es mellit us Chroni c pancre atitis due to acute alcoho l intoxi cation Alcoho l abuse Per pt. jojo smith states she has never had an issues with any subtan dov Histor y of piloni ray cyst Anxiet y Surgic al Histor y (Updat ed @ 00:06 by HELDER SRIVASTAVA ) Histor y of total left hip arthro plasty (01/19) S/P laparo scopic proced ure cyst remove d from stomac h per patien t S/P surgic al remova l of piloni ray cyst Histor y of esopha gogast roduod enosco py (EGD) ( ) Histor y of colono scopy with polype ctomy ( ) Histor y of hyster ectomy Histor y of tonsil lectom y Histor y of kailee an sectio n Family Histor y (Revwed @ 05:25 by Richard suggs) Father Hypert ension Diabet es Heart diseas e Social Histor y (Revie wed @ 05:25 by Richard suggs) 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 Use Status : Never Smokin g risk assess ment perfor med?: Yes Alcoho l Intake : never Drug use: Never Substa nce use type: does not use Househ old member s: spouse Housin g: apartm ent Number of Childr en: 2 curren t occupa tion: Caregi elvie What is your relati onship status ?: dirk smith Panel score (0-1 are the most social ly isolat ed patien ts): 1 Do you feel safe at home: Yes Do you feel safe in your relati onship ?: Yes Meds Allerg ies and Home Medica tions Allerg ies Allerg y/AdvR eac Type Severi ty Reacti on Status Date / Time metfor min AdvRea c Unknow n Diarrh ea Verifi ed 16:45 meperi dine AdvRea c gi upset Verifi ed 16:45 Home Medica tions Medica tion Instru ctions Record ed Confir med Type sucral fate 1 gram tablet 1 g PO QID Histor y folic acid 1 mg tablet 1 mg PO DAILY #0 tabs Rx atorva statin 80 mg tablet 80 mg PO DAILY Histor y empagl iflozi n 10 mg tablet 10 mg PO DAILY Histor y (Akanksha esparza) gabape ntin 300 mg capsul e 900 mg feedin g tube TID Histor y metopr olol succin ate 50 mg 25 mg PO BID Histor y tablet ,exten ded releas e 24 hr quetia pine 100 mg tablet 100 mg PO QHS Histor y sacubi tril 24 mg-joann sartan 26 mg 1 tab feedin g tube BID Histor y tablet (Entre sto) valpro ic acid (as sodium salt) 250 300 mg PO TID Histor y mg/5 mL oral soluti on buprop ion HCl 100 mg tablet 300 mg PO DAILY Histor y protei n See Rx Instru ctions PO .COMPL EX Histor y acetam inophe n 500 mg/15 mL oral 1,000 mg (30 mL) PO Q8H PRN #237 mL Rx liquid ferrou s sulfat e 300 mg (60 mg 300 mg feedin g tube .QOD Histor y iron)/ 5 mL oral liquid insuli n NPH isoph U-100 human 100 See Rx Instru ctions .Route Rx unit/m L (3 mL) subcut aneous pen .COMPL EX #0 mL (Humul in N NPH U-100 Insuli n KwikPe n) ibupro fen 100 mg/5 mL oral 600 mg PO Q8H PRN Histor y suspen clotilde nystat in 100,00 0 unit/g emily topica l 1 applic topica l TID PRN Histor y cream nystat in 100,00 0 unit/g emily topica l 1 applic topica l TID PRN Histor y powder pantop razole 40 mg granul es 40 mg G-tube DAILY Histor y delaye d-rele ase for susp in packet insuli n glargi ne 100 unit/m L (3 10 unit subcut QPM Histor y mL) subcut aneous pen (Lantu s Solost ar U-100 Insuli n) melato moni 3 mg tablet 9 mg feedin g tube HS Histor y ondans etron HCl 4 mg tablet 8 mg feedin g tube Q8H PRN Histor y Exam Narrat reilly Exam Narrat reilly: Genera l: A pleasa nt middle -aged Caucas laureen female on 1L of O2, coughi ng incess antly, A Ox3, [place] Neurol ogical : A Ox3, tremul ous, [place], no focal defici ts Psychi atric: Approp riate speech patter n/cont ent Skin: Visibl e skin intact HEENT: Atraum atic, normoc ephali c, EOMI, MMM, clear oropha rynx, tympan ic membra yenni are not erythe matous or bulgin g B, there is mild cerume n buildu p in the R ear canal, no subman dibula r or cervic al lympha denopa thy, no goiter or JVD Cardio vascul ar: RRR, no m/r/g Lungs: rhonch i on expira tory B Gastro intest inal: soft, nonten doreen, nondis tended ; gastro stomy tube in place Genito urinar y: deferr ed Extrem ities: trace edema BLEs, trace pedal pulses B, no lesion s on B feet, no clubbi ng or cyanos is Result s Imagin g Imagin g Studie s: CXR: Perihi lar bronch ial wall thicke oly which can be seen with bronch ioliti s or small airway s diseas e. EKG #1: ST, HR 113, no acute ischem ia EKG #2: ST, HR 109, unchan ged. Labs 12:17 12:17 Labs: Labora tory Result s - last 24 hr 12:17 12:32 14:42 WBC 14.79 H RBC 4.78 Hgb 13.6 Hct 42.3 MCV 89 MCH 28.5 MCHC 32.2 RDW 15.4 H Plt Count 244 MPV 10.8 Immatu re Gran % 0.3 Neutro phils % 74.3 Lympho cytes % 10.8 Monocy riky % 5.3 Eosino phils % 8.6 Basoph ils % 0.7 Nuclea gabbie RBC % 0.0 Absolu te Neutro phils 10.99 H Absolu te Lympho cytes 1.60 Absolu te Monocy riky 0.78 Absolu te Eosino phils 1.27 H Absolu te Basoph ils 0.10 VBG pH 7.27 L 7.31 VBG pCO2 71 H* 58 H VBG pO2 44 42 VBG HCO3 32 H 29 H VBG Total CO2 30 H 26 VBG O2 Satura tion 71 72 VBG Base Excess 5 H 2 Sodium 142 Potass ium 4.5 Chlori de 102 Carbon Dioxid e 31.4 Anion Gap 8.6 BUN 11 Creati nine 0.8 Est GFR (CKD-E PI 2020) 82.74 Glucos e 113 H Calciu m 9.8 Tropon in I 203 H* 434 H* COVID- 19 Source Edyta jain SARS-C oV-2 (PCR) Negati ve Influe nza Type A (PCR) Negati ve Influe nza Type B (PCR) Negati ve RSV (PCR) Negati ve Last Vital Signs Temp 37.0 C 13:28 Pulse 112 H 14:11 Resp 22 14:11 BP 143/84 H 13:28 Pulse Ox 97 14:11 Time Spent Time spent with Patien t: 55-74 minute s Time was spent: prepar ing to see the patien t(eg.r eview tests) , obtain ing and/or review ing separa leeann smith hiisto ry, orderi ng medica tions, tests, proced ures, referr ing, commun aline g with other health care profes sional s, indepe ntentl y interp reting result s, counse ling the patien t and care [facility] cc: JADEN STILL,SHE Y ------ ------ ------ ------ ------ ------ ------ ------ ------ ------ ------ --- Dictat ed by: ED MARTE,FAUSTO Watkins Dictat ed: Time: 162 6 Date: 2030 Date: Date: Transc ribed Date: Transc ribed Time: 1626 By: SYED This is privil eged, confid ential inform ation, intend ed only for the provid er named. Any use or distri bution by any person other than this provid er is strict ly prohib ited. If you receiv e this report in error, please notify us immedi ately at [phone] and return the origin al report to us at the addres s above. Thank you. [email or web address] [place] [id number], [place], [address] 07/03/2023 06:43:46 07/02/19 24 07/02/2023 ED visit note ED Visit Note NONI Rodríguez NAME: Brennen garimaArley anitra Orlando UNIT #: [id number] ADMITT ING PROVID ER: Moustapha Baker M.D. ACCOUN T #: [id number] PRIMAR Y CARE PROVID ER: SHE STANLEY NP DATE OF ADMIT: 0 4 : 1960 Discha rge Plan Dispos ition Patien t Dispos ition: Admit to [facility] Dischdarrius howard Detail s Clinic al Impres clotilde: Acute respir atory failur e with hypoxi a and hyperc arbia, Myocar dial injury , COPD with acute exacer bation Admit Date/T juli: 16:21 Admit Provid er: Erin Damon Attend ing Provid er: Erin Damon Primar y Care Provid er: Chris Stanley ED Provid er: Moustapha Baker Data Dischdarrius howard Date/T juli-TO BE ENTERE D AT DEPART URE: 17:38 HPI Genera l Date/T juli Provid er Initia gabbie Alvarez ntatio n: 11:28 . HPI Narrat reilly: MDM This is a wheezi ng and tachyc ardic 63-yea r-old female with report ed recent diagno sis of pneumo manisha now with exacer bation of reacti ve airway diseas e for which she will receiv e predni sone and doxycy jaramillo. No pain out of propor tion to sugges t necrot izing soft tissue infect ion. Given chest pain will obtain ECG and tropon in. No fevers to sugges t pneumo manisha howeve r will obtain chest x-ray. Not an alcoho lic to sugges t increa sed risk for aspira tion pneumo manisha. I consid ered PE and DVT howevrowan r noni rodríguez has no leg pain and no histor y of PE nor DVT given her wheeze s my suspic ion was low for PE so well defer D-dime r. Will obtain a blood gas to assess for acidem ia and hyperc arbia. No trauma to the chest and equal breath sounds so doubt pneumo thorax . Not hypote nsive nor a dialys is patiela rodríguez to sugges t tampon alvin. No histor y of emesis to sugges t esopha geal ruptur e. No tearin g qualit y to sugges t aortic dissec tion. Given increa sed oxygen use antici fofana noni rodríguez will requir e hospit alizat ion. No signif icant lower extrem ity edema to sugges t acute heart failur e. Simila rly noni rodríguez does not appear volume overlo aded. 12:30 PM CBC shows leukoc ytosis but no anemia . No thromb ocytop enia. Venous blood gas shows acidem ia and hyperc arbia simila r to prior dated last year. 1:15 PM Basic metabo lic panel showin g no MARILIN and no anion gap normal bicarb dorothea?n ot consis tent with DKA. Very mild hyperg lycemi a. Chest x-ray read as signs of small airway diseas e. Myocar dial injury new compar ed to prior. Noni rodríguez has a histor y of stress -induc ed cardio myopat hy but her EF normal ized. Will provid e her with aspiri n at 324mg. 1:45 PM I spoke with Dr. Damon who reques gabbie repeat venous gas and tropon in and rescue BiPAP. 3:03 PM RT placed pt on BiPAP and she pulled good tidal volume s. Repeat venous blood gas showin g resolv ed acidem ia and improv ed hyperc arbia. Tropon in nearly double d. I spoke with Dr. Damon who reques gabbie cards consul t [facility]. 4pm I spoke to Dr. Aiden watkins from cards at [facility]. He was not concer david for ACS and felt that patiela rodríguez's presen tation was more consis tent w/smiley nd. He advise d trendi ng trops serial ECGs. He advise d agains t tonja lipscomb on and clopid ogrel. 4:55 PM Repeat ECG showin g narrow comple x sinus tachyc ardia rate of 109. Normal axis. Interv als within normal limits . T wave flatte oly in aVL. Compar ed to prior dated earlie r today no acute change s. T wave flatte oly in aVL is persis tent. Low voltag e is also persis tent. Noni t accept ed to the hospit alist team. Chroni c condit ions affect ing the care of the noni t: Reacti ve airway diseas e Histor y obtain ed from an outsid e histor laureen: N/A Training Manager al record review : N/A [Diagn ostic interp retati ons perfor med by me: Per my indepe ndent interp retati on chest x-ray shows: No acute cardio pulmon giovanny proces s Per my indepe ndent interp retati on EKG shows: Narrow comple x sinus tachyc ardia at a rate of 113. Normal axis. Interv als within normal limits . Low voltag e. Poor R wave progre ssion. T wave flatte oly in aVL. Compar ed to prior dated last m onth low voltag e is persis tent. T wave flatte oly in aVL appear s new. No acute injury patter n. ]Medic ations : Predni sone doxycy jaramillo Social determ inants of health affect ing dispos ition: N/A Manage ment discus sed with: Cardio logy [facility] and Dr. Damon Treatantonette ent/in terven tions consid ered: N/A Respon se to therap ies provid ed: Improv ed sympto ms follow ing rescue BiPAP HPI This is a 63-yea r-old female with histor y of reacti ve airway diseas e arrive d to the emerge ncy depart ment via EMS in the settin g of cough shortn ess of breath and wheezi ng. Patien t report renay was treate d as an outpat ient last week with pneumo manisha. She just finish ed 7 days of antibi otics. She does not recall which antibi otic she receiv ed. She is on 2 L of oxygen at night but on no oxygen during the day. She has had a cough. She denies fevers . She endors es a centra l chest pain. She denies nausea and vomiti ng. Chest pain does not radiat e. It is not positi onal but is slight ly worse when she coughs . Chest pain does not radiat e. She denies any lower extrem ity swelli ng. No uninte ntiona l weight gain. She has no histor y of PEs or DVTs. She says her cough is nonpro ductiv e. She said no increa sed phlegm nor chills . She denies routin e tobacc o, ethano l, and illici ts. Exam Genera l: Uncomf ortabl e-appe aring in no acute distre ss speaki ng in comple te senten dov. Head: Normoc ephali c, atraum atic. Eye:Ex traocu lar eye moveme nts intact . No conjun ctival inject ion. No sclera l icteru s. Ear, nose, mouth, throat : Grossl y normal inspec tion. Normal voice, handli ng secret ions normal ly. Neck: Trache a midlin e. Cardio vascul ar: Well-p erfuse d distal extrem ities. Rapid regula r rate Respir atory: Nonlab ored respir ation. Increa sed wheezi ng normal lung howard with prolon ged expira tory phase. No signif icant tachyp vesta. No access ory muscle use. Gastro intest inal: Nondis tended abdome n. Muscul oskele brittany: No signif icant lower extrem ity pittin g edema. Moving all 4 extrem ities sponta neousl y. Skin: Normal for age and race, grossl y normal temper ature and turgor . No acute rash. Neurol ogic: Alert and approp riate, no appare nt acute defici ts. Psychi atric: Mood and manner are approp riate. Groomi ng and person al hygien e are approp [facility]. Relate d Data Home Medica tions Medica tion Instru ctions Record ed Confir med sucral fate 1 gram tablet 1 g PO QID folic acid 1 mg tablet 1 mg PO DAILY #0 tabs atorva statin 80 mg tablet 80 mg PO DAILY empagl iflozi n 10 mg tablet 10 mg PO DAILY (Jardi ance) gabape ntin 300 mg capsul e 900 mg feedin g tube TID metopr olol succin ate 50 mg 25 mg PO BID tablet ,exten ded releas e 24 hr quetia pine 100 mg tablet 100 mg PO QHS sacubi tril 24 mg-joann sartan 26 mg 1 tab feedin g tube BID tablet (Entre sto) valpro ic acid (as sodium salt) 250 300 mg PO TID mg/5 mL oral soluti on buprop ion HCl 100 mg tablet 300 mg PO DAILY protei n See Rx Instru ctions PO .COMPL EX acetam inophe n 500 mg/15 mL oral 1,000 mg (30 mL) PO Q8H PRN #237 mL liquid ferrou s sulfat e 300 mg (60 mg 300 mg feedin g tube .QOD iron)/ 5 mL oral liquid insuli n NPH isoph U-100 human 100 See Rx Instru ctions .Route unit/m L (3 mL) subcut aneous pen .COMPL EX #0 mL (Humul in N NPH U-100 Insuli n KwikPe n) ibupro fen 100 mg/5 mL oral 600 mg PO Q8H PRN suspen clotilde nystat in 100,00 0 unit/g emily topica l 1 applic topica l TID PRN cream nystat in 100,00 0 unit/g emily topica l 1 applic topica l TID PRN powder pantop razole 40 mg granul es 40 mg G-tube DAILY delaye d-rele ase for susp in packet insuli n glargi ne 100 unit/m L (3 10 unit subcut QPM mL) subcut aneous pen (Lantu s Solost ar U-100 Insuli n) melato moni 3 mg tablet 9 mg feedin g tube HS ondans etron HCl 4 mg tablet 8 mg feedin g tube Q8H PRN Previo us Rx's Medica tion Instru ctions Record ed folic acid 1 mg tablet 1 mg PO DAILY #0 tabs acetam inophe n 500 mg/15 mL oral 1,000 mg (30 mL) PO Q8H PRN #237 mL liquid insuli n NPH isoph U-100 human 100 See Rx Instru ctions .Route unit/m L (3 mL) subcut aneous pen .COMPL EX #0 mL (Humul in N NPH U-100 Insuli n KwikPe n) Allerg ies Allerg y/AdvR eac Type Severi ty Reacti on Status Date / Time metfor min AdvRea c Unknow n Diarrh ea Verifi ed 16:45 meperi dine AdvRea c gi upset Verifi ed 16:45 Genera l ASHANTI: 3 Medica l Decisi on Making Qualit y:SDOH Health Relate d Social Needs: No Data to Displa y Critic al Care Time Critic al Care Time Critic al Care Time: Yes Total Critic al Care Time: 45 Attest ation: acute hypoxi c respir atory failur e PFSH All Active Proble ms (Updat ed @ 20:30 by Erin Damon MD) Discha rge planni ng issues (Acute ) DVT prophy laxis (Acute ) HFrEF (heart failur e with reduce d ejecti on fracti on) (Chron ic) Bronch ioliti s (Acute ) NSTEMI (non-S T elevat ed myocar dial infarc tion) (Acute ) Per pt. jojo d states she did not have a heart attack COPD with acute exacer bation (Acute ) Myocar dial injury (Acute ) Acute respir atory failur e with hypoxi a and hyperc arbia (Acute ) Pneumo nitis (Acute ) Aspira tion pneumo manisha (Acute ) Gastro stomy tube obstru ction (Acute ) Lab test positi ve for detect ion of COVID- 19 virus (Acute ) PEG (percu taneou s endosc opic gastro stomy) status (Chron ic) Insuli n depend ent type 2 diabet es mellit us (Chron ic) Acute respir atory failur e with hypoxi a (Acute ) COVID (Acute ) Depres clotilde (Chron ic) Bipola r 1 disord er (Chron ic) Diabet es (Chron ic) Cholel ithias is (Chron ic) Ventra l hernia (Acute ) Leukoc ytosis (Acute ) Pleura l effusi on (Acute ) Black tarry stools (Acute ) Chroni c diarrh ea (Acute ) Thierno t's esopha jayna (Chron ic) Esopha geal ulcer with bleedi ng (Acute ) Erosiv e esopha gitis (Acute ) Thierno t's esopha jayna determ ined by endosc opy (Acute ) Hyperp lastic colon polyp (Acute ) Tubula r adenom a (Acute ) Neurol eptic induce d vance sonism (Acute ) Drug-i nduced vance sonism (Acute ) Anemia (Chron ic) Status post hip surger y (Acute ) H/O: pneumo manisha (Acute ) Abnorm al chest xray (Acute ) Pre-op evalua tion (Acute ) Medica l Histor y (Updat ed @ 20:30 by Erin Damon MD) Esopha geal strict ure Chroni c systol ic (conge stive) heart failur e Aspira tion pneumo manisha Stress -induc ed cardio myopat hy acute onset manage d at [facility] 08/30 presso rs, EF 25%, has since recove red RH Acute cardio genic pulmon giovanny edema Acute metabo lic enceph alopat hy Bilate ral pneumo manisha Hypoka lemia Closed fractu re of neck of left femur s/p Percut aneous Screw Fixati on 08/09/22 Consti pation Diabet es mellit us type 2 in obese Chroni c iron defici ency anemia ETOH abuse Poorly contro lled diabet es mellit us Chroni c pancre atitis due to acute alcoho l intoxi cation Alcoho l abuse Per pt. jojo d states she has never had an issues with any subtan dov Histor y of piloni ray cyst Anxiet y Surgic al Histor y (Updat ed @ 00:06 by HELDER SRIVASTAVA ) Histor y of total left hip arthro plasty (01/19) S/P laparo scopic proced ure cyst remove d from stomac h per patien t S/P surgic al remova l of piloni ray cyst Histor y of esopha gogast roduod enosco py (EGD) ( ) Histor y of colono scopy with polype ctomy ( ) Histor y of hyster ectomy Histor y of tonsil lectom y Histor y of kailee an sectio n Family Histor y (Revie wed @ 05:25 by Richard suggs) Father Hypert ension Diabet es Heart diseas e Social Histor y (Revie wed @ 05:25 by Richard suggs) 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 Use Status : Never Smokin g risk assess ment perfor med?: Yes Alcoho l Intake : never Drug use: Never Substa nce use type: does not use Househ old member s: spouse Housin g: apartm ent Number of Childr en: 2 curren t occupa tion: Caregi elvie What is your relati onship status ?: dirk smith Panel score (0-1 are the most social ly isolat ed patien ts): 1 Do you feel safe at home: Yes Do you feel safe in your relati onship ?: Yes cc: JADEN STILL,ABB Y ------ ------ ------ ------ ------ ------ ------ ------ ------ ------ ------ --- Dictat ed by: Moustapha Baker M.D. Dictat ed: Time: 112 8 Date: 2142 Date: Date: Transc ribed Date: Transc ribed Time: 1127 By: JUANA This is privil eged, confid ential inform ation, intend ed only for the provid er named. Any use or distri bution by any person other than this provid er is strict ly prohib ited. If you receiv e this report in error, please notify us immedi hillly at [phone] and return the origin al report to us at the addres s above. Thank you. [email or web address] [facility] [address], [place], [address] 07/03/2023 06:43:47 07/03/19 24 07/03/2023 progr ess note PROGRE SS NOTE PATIEN T NAME: Arley Norman Antonette UNIT #: [id number] ADMITT ING PROVID ER: Erin Damon M.D. ACCOUN T #: [id number] PRIMAR Y CARE PROVID ER: JADEN HISTOLOGIC TECHNICIAN,ABB Y DATE OF ADMIT: 0 4 : 1960 Date of Servic e Date of servic e: Time of Servic e: 10:45 Assess ment and Plan Assess ment and plan (1) Acute on chroni c respir atory failur e with hypoxi a and hyperc apnia: Status : Acute Assess ment and plan: in settin g of reacti ve airway s diseas e and bronch ioliti s. The patien t now states that COVID- 19 was months ago, not 3 weeks ago, so this is not COVID sequel la. It could be due to aspira tion again. Procal citoni n is negati ve, but the patien t is having produc tive purule nt (yello w sputum ) cough. Contin ue schedu led + prn nebs, empiri c ceftri axone + doxycy jaramillo, antitu ssives . Sputum sample with normal wiley. Wean O2 as tolera gabbie. Check exerci se oximet ry tomorr ow am. Encour age pulmon giovanny toilet . (2) Bronch ioliti s: Status : Acute Assess ment and plan: As above (3) NSTEMI (non-S T elevat ed myocar dial infarc tion): Status : Acute Assess ment and plan: Likely type 2 NSTEMI . Treat underl diana pulmon giovanny diseas e. Contin ue aspiri n. Await echoca rdiogr am. (4) Insuli n depend ent type 2 diabet es mellit us: Status : Chroni c Assess ment and plan: Antici ct steroi d-michelle marcelino hyperg lycemi a. Contin ue home basal bolus regime n in additi on to our SSI. (5) HFrEF (heart failur e with reduce d ejecti on fracti on): Status : Chroni c Assess ment and plan: As I unders tand it, the patien t never did get a cardia c cathet erizat ion at [facility] [facility] when she first presen gabbie with the LVEF of 35%. The EF did improv e on the optima l medica l therap y. Repeat echo. Monito r volume status . Contin ue home regime n. (6) DVT prophy laxis: Status : Acute Assess ment and plan: SC enoxap deysi (7) Discha rge planni ng issues : Status : Acute Assess ment and plan: Full code Antici fofana discha rge home tomorr ow. Exerci se oximet ry prior to discha rge. Subjec tive Subjec tive Interv al histor y since last seen: Ms Brennen painting is satura ting 92% on RA. She is normal ly on 2L of O2 at night. She wants to go home, but unders tands that she is still coughi ng a lot and is not quite ready. She is very wheezy as well. Denies dizzin ess, CP, n/v. Exam Narrat reilly Exam Narrat reilly: Genera l: A pleasa nt middle -aged Caucas laureen female on RA, coughi ng is better , A Ox3, [place] HEENT: EOMI, MMM Cardio vascul ar: RRR, no m/r/g Lungs: expira tory wheezi ng B, a little better Gastro intest inal: soft, nonten doreen, nondis tended ; gastro stomy tube in place Extrem ities: trace edema, no clubbi ng/cya nosis Object reilly Last Vital Signs Temp 36.5 C 14:59 Pulse 99 H 14:59 Resp 19 14:59 BP 100/61 14:59 Pulse Ox 89 L 15:40 Labora tory Result s - last 24 hr 17:32 20:30 Unknow n WBC RBC Hgb Hct MCV MCH MCHC RDW Plt Count MPV Immatu re Gran % Neutro phils % Lympho cytes % Monocy riky % Eosino phils % Basoph ils % Nuclea gabbie RBC % Absolu te Neutro phils Absolu te Lympho cytes Absolu te Monocy riky Absolu te Eosino phils Absolu te Basoph ils Sodium Potass ium Chlori de Carbon Dioxid e Anion Gap BUN Creati nine Est GFR (CKD-E PI 2020) Glucos e Calciu m Magnes ium Tropon in I 504 H* 500 H* Procal citoni n < 0.1 Add-On Test Reques t DONE 06:50 WBC 11.19 H RBC 4.71 Hgb 13.3 Hct 40.7 MCV 86 MCH 28.2 MCHC 32.7 RDW 15.4 H Plt Count 275 MPV 11.3 H Immatu re Gran % 0.4 Neutro phils % 74.2 Lympho cytes % 16.6 Monocy riky % 8.0 Eosino phils % 0.3 Basoph ils % 0.5 Nuclea gabbie RBC % 0.0 Absolu te Neutro phils 8.30 H Absolu te Lympho cytes 1.86 Absolu te Monocy riky 0.90 H Absolu te Eosino phils 0.03 Absolu te Basoph ils 0.06 Sodium 139 Potass ium 4.5 Chlori de 102 Carbon Dioxid e 26.2 Anion Gap 10.8 BUN 17 Creati nine 1.0 Est GFR (CKD-E PI 2020) 63.30 Glucos e 107 H Calciu m 9.7 Magnes ium 1.9 Tropon in I Procal citoni n Add-On Test Reques t Time Spent with Patien t Time Spent with Patien t: 35-49 minute s Time was spent: prepar ing to see the patien t(eg.r eview tests) , obtain ing and/or review ing separa tely inocente d hiisto ry, orderi ng medica tions, tests, proced ures, referr ing, commun aline g with other health care profes sional s, indepe ntentl y interp reting result s, counse ling the patien t and care [facility] cc: ------ ------ ------ ------ ------ ------ ------ ------ ------ ------ ------ --- Dictat ed by: ED MARTE,FAUSTO Watkins Dictat ed: Time: 162 5 Date: 1648 Date: Date: Transc ribed Date: Transc ribed Time: 162 By: SYED This is privil eged, confid ential inform ation, intend ed only for the provid er named. Any use or distri bution by any person other than this provid er is strict ly prohib ited. If you receiv e this report in error, please notify us immedi ately at and return the origin al report to us at the addres s above. Thank you. [facility] [address] [place], [address] 07/06/2023 06:41:39 07/04/19 24 07/04/2023 progr ess note PROGRE SS NOTE PATIEN T NAME: Arley Norman UNIT #: [id number] ADMITT ING PROVID ER: Erin Damon M.D. ACCOUN T #: [id number] PRIMAR Y CARE PROVID ER: YOUNG HISTOLOGIC TECHNICIAN,ABB Y DATE OF ADMIT: 0 4 : 1960 Date of Servic e Date of servic e: Time of Servic e: 14:31 Assess ment and Plan Assess ment and plan (1) NSTEMI (non-S T elevat ed myocar dial infarc tion): Status : Acute Assess ment and plan: Now with EKG change s, the questi on is whethe r this is a type 1 vs type 2 NSTEMI . Discus sed with cardio logy at [facility] [facility]. When the patien t was origin ally diagno sed with her stress cardio myopat hy with low EF, she did not have a cardia c cath becaus e she had a cardia c CTA with a calciu m score of 0. The recomm endati on was to observ e the patien t overni ght and obtain an echoca rdiogr am, which is ordere d. Treat underl diana pulmon giovanny diseas e. Contin ue aspiri n. Await echoca rdiogr am. (2) Acute on chroni c respir atory failur e with hypoxi a and hyperc apnia: Status : Acute Assess ment and plan: in settin g of reacti ve airway s diseas e and bronch ioliti s. The patien t now states that COVID- 19 was months ago, not 3 weeks ago, so this is not COVID sequel la. It could be due to aspira tion again. This is much better today - the patien t sounds clear on exam and is not requir ing oxygen on ambula tion. Procal citoni n is negati ve, but the patien t is having produc tive purule nt (yello w sputum ) cough. Contin ue schedu led + prn nebs, empiri c ceftri axone + doxycy jaramillo, antitu ssives . Wean predni sone. Sputum sample with normal wiley. Encour age pulmon giovanny toilet . Needs to wear O2 at night - discus sed with nursin g. (3) Bronch ioliti s: Status : Acute Assess ment and plan: As above (4) Insuli n depend ent type 2 diabet es mellit us: Status : Chroni c Assess ment and plan: with steroi d-michelle marcelino hyperg lycemi a. Contin ue home basal bolus regime n in additi on to our SSI. (5) HFrEF (heart failur e with reduce d ejecti on fracti on): Status : Chroni c Assess ment and plan: The assump tion that this was stress cardio myopat hy rather than ischem ic was based on a cardia c CTA with a calciu m score of 0 at [facility]. The EF did improv e on the optima l medica l therap y. Repeat echo is ordere d for tomorr ow. Monito r volume status . Contin ue home regime n. (6) DVT prophy laxis: Status : Acute Assess ment and plan: SC enoxap deysi (7) Discha rge planni ng issues : Status : Acute Assess ment and plan: Full code Possib le discha rge home tomorr ow pendin g result s of the echoca rdiogr am. Back to her baseli ne O2 needs, which is 2L of O2 at HS. Subjec tive Subjec tive Interv al histor y since last seen: Benigno peralta, loyda pugh flipp ed T-wave s on the teleme try. Was asympt omatic at the time, but was sleepi ng withou t oxygen or BiPAP on and satura ting in the mid-80 s. Placed on BiPAP and improv ed. EKGs, howeve r, despit e approp riate oxygen ation contin ue to show T wave invers ions. Bridge t feels better today. She denies dizzin ess, CP, SOB, n/v. She is on RA during the day and passed exerci se oximet ry testin g. Her tropon ins have contin ued to downtr end. Case was discus sed with [facility] cardio logy, who recomm ended keepin g the patien t benigno peralta for furthe r monito ring and an echoca rdiogr am in am. Her husban d (Yazan h) is upset by this, but Bridge t unders tands and is agreea ble. I also discus sed this with Richard, the son, per Campos 's reques t. Exam Narrat reilly Exam Narrat reilly: Genera l: A pleasa nt middle -aged Caucas laureen female on RA, not coughi ng, A Ox3, sittin g up comfor tably in a chair HEENT: EOMI, MMM Cardio vascul ar: RRR, no m/r/g Lungs: CTAB Gastro intest inal: soft, nonten doreen, nondis tended ; gastro stomy tube in place Extrem ities: trace edema, no clubbi ng/cya nosis Object reilly Last Vital Signs Temp 37.5 C 11:07 Pulse 73 11:07 Resp 18 11:07 BP 85/50 L 11:07 Pulse Ox 94 11:07 Labora tory Result s - last 24 hr 02:46 05:48 WBC 8.91 RBC 4.07 Hgb 11.4 Hct 34.8 L MCV 86 MCH 28.0 MCHC 32.8 RDW 16.0 H Plt Count 200 MPV 11.3 H Immatu re Gran % 0.2 Neutro phils % 57.8 Lympho cytes % 31.2 Monocy riky % 8.9 Eosino phils % 1.2 Basoph ils % 0.7 Nuclea gabbie RBC % 0.0 Absolu te Neutro phils 5.15 Absolu te Lympho cytes 2.78 Absolu te Monocy riky 0.79 Absolu te Eosino phils 0.11 Absolu te Basoph ils 0.06 VBG pH 7.53 H VBG pCO2 34 L VBG pO2 60 VBG HCO3 28 VBG Total CO2 25 VBG O2 Satura tion 93 VBG Base Excess 6 H Sodium 140 Potass ium 3.8 Chlori de 104 Carbon Dioxid e 29.8 Anion Gap 6.2 BUN 31 H Creati nine 0.8 Est GFR (CKD-E PI 2020) 82.74 Glucos e 152 H Calciu m 9.4 Magnes ium 1.9 Tropon in I 192 H* 162 H* Object reilly Narrat reilly Object reilly Narrat reilly: EKG 07:23: HR 72, sienna latera l T wave invers ions, unchan ged from 02:34 and 5:21 am, but new from EKG in the ED on 4. Time Spent with Patien t Time Spent with Patien t: 35-49 minute s Time was spent: prepar ing to see the patien t(eg.r eview tests) , obtain ing and/or review ing separdarrius mcneillisto ry, orderi ng medica tions, tests, proced ures, referr ing, commun icatin g with other health care profes sional s, indepe ntentl y interp reting result s, counse ling the patien t and care [facility] cc: ------ ------ ------ ------ ------ ------ ------ ------ ------ ------ ------ --- Dictat ed by: ED MARTE,FAUSTO Watkins Dictat ed: Time: 142 8 Date: 1552 Date: Date: Transc ribed Date: Transc ribed Time: 142 By: SYED This is privil eged, confid ential inform ation, intend ed only for the provid er named. Any use or distri bution by any person other than this provid er is strict ly prohib ited. If you receiv e this report in error, please notify us immedi ately at [phone] and return the origin al report to us at the addres s above. Thank you. [place] [id number], [place], [address] 07/06/2023 06:41:39 07/04/19 24 07/03/2023 initi al care manag ement asses s Initia l Care Manage ment Assess PATIEN T NAME: Arley Normananne Orlando UNIT #: [id number] ADMITT ING PROVID ER: Hought on,Can dace ACCOUN T #: [id number] PRIMAR Y CARE PROVID ER: YOUNG HISTOLOGIC TECHNICIAN,ABB Y DATE OF ADMIT: 0 2 4 : 1960 Date of servic e: Time of Servic e: 09:49 Care Manage ment Initia l Assmt Initia l Assess ment REASON FOR HOSPIT ALIZAT ION:: Bronci olitis , Acute Hypoxi c Hyperc apnic Respir atory Failur e PREVIO US FUNCTI ONAL STATUS /SOCIA L/FAMI LY SUPPOR TS:: Binta rodríguez reside s in [facility] with her jojo Gasca . 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 She and her jojo smith have two adult sons, Richard and Carlton, one of whom lives local y and is suppor tive of the couple . Binta rodríguez is indepe ndent with her ADLs at [facility]. CHUY Rodríguez FUNCTI ONAL STATUS :: Binta rodríguez was lying in bed, jojo smith at bedsid e. Jojo smith, Campos strugg ling to regula te emotio ns, weepin g and concer david, janina rodríguez will return home after ECHO comple gabbie on Wednesday , per . ADVANC E DIRECT AGATA:: None on file. Has noni rodríguez been provid ed with info about the portal /API?: Yes Did the noni rodríguez sign up for the portal ?: Yes CODE STATUS :: Full Code INSURA NCE COVERA GE / FINANC IAL ISSUES :: NGOZI CHUY Rodríguez HOME/C OMMUNI TY SERVIC ES/EQU IPMENT :: FWW. HH PT. PRIMAR Y CARE PHYSIC LAUREEN:: Chris Stanley POTENT IAL DISCHA RGE NEEDS: : Evalua tions for furthe r needs, follow up appoin tments , ECHO. PATIEN T/FAMI LY EDUCAT ION NEEDS: : Review discha rge instru ctions and limita tions, discus clotilde of self care needs includ ing ask me three . JANINA IVY RS TO DISCHA RGE:: None. TRANSP ORTATI ON:: Via privat e vehicl e by her jojo smith. PLAN:: Janina rodríguez will return home once medica lly clearrowan smith. Her jojo smith will drive her home via privat e vehicl e when ready. She will follow up with her PCP and discha rge plan of care. CM will contin ue to follow . PFSH All Active Proble ms (Updat ed @ 16:40 by Erin Damon MD) Acute on chroni c respir atory failur e with hypoxi a and hyperc apnia (Acute ) Discha rge planni ng issues (Acute ) DVT prophy laxis (Acute ) HFrEF (heart failur e with reduce d ejecti on fracti on) (Chron ic) Bronch ioliti s (Acute ) NSTEMI (non-S T elevat ed myocar dial infarc tion) (Acute ) Per pt. 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 (Chron ic) Acute respir atory failur e with hypoxi a (Acute ) COVID (Acute ) Depres clotilde (Chron ic) Bipola r 1 disord er (Chron ic) Diabet es (Chron ic) Cholel ithias is (Chron ic) Ventra l hernia (Acute ) Leukoc ytosis (Acute ) Pleura l effusi on (Acute ) Black tarry stools (Acute ) Chroni c diarrh ea (Acute ) Thierno t's esopha jayna (Chron ic) Esopha geal ulcer with bleedi ng (Acute ) Erosiv e esopha gitis (Acute ) Thierno t's esopha jayna determ ined by endosc opy (Acute ) Hyperp lastic colon polyp (Acute ) Tubula r adenom a (Acute ) Neurol eptic induce d vance sonism (Acute ) Drug-i nduced vance sonism (Acute ) Anemia (Chron ic) Status post hip surger y (Acute ) H/O: pneumo manisha (Acute ) Abnorm al chest xray (Acute ) Pre-op evalua tion (Acute ) Medica l Histor y (Updat ed @ 16:40 by Erin Damon MD) Esopha geal strict ure Chroni c systol ic (conge stive) heart failur e Aspira tion pneumo manisha Stress -induc ed cardio myopat hy acute onset manage d at [facility] [place] 08/30 presso rs, EF 25%, has since recove red RH Acute cardio genic pulmon giovanny edema Acute metabo lic enceph alopat hy Bilate ral pneumo manisha Hypoka lemia Closed fractu re of neck of left femur s/p Percut aneous Screw Fixati on 08/09/22 Consti pation Diabet es mellit us type 2 in obese Chroni c iron defici ency anemia ETOH abuse Poorly contro lled diabet es mellit us Chroni c pancre atitis due to acute alcoho l intoxi cation Alcoho l abuse Per pt. jojo d states she has never had an issues with any subtan dov Histor y of piloni ray cyst Anxiet y Surgic al Histor y (Updat ed @ 00:06 by HELDER SRIVASTAVA ) Histor y of total left hip arthro plasty (01/19) S/P laparo scopic proced ure cyst remove d from stomac h per patien t S/P surgic al remova l of piloni ray cyst Histor y of esopha gogast roduod enosco py (EGD) ( ) Histor y of colono scopy with polype ctomy ( ) Histor y of hyster ectomy Histor y of tonsil lectom y Histor y of kailee an sectio n Family Histor y (Revie wed @ 05:25 by Richard suggs) Father Hypert ension Diabet es Heart diseas e Social Histor y (Revie wed @ 05:25 by Richard suggs) 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 Use Status : Never Smokin g risk assess ment perfor med?: Yes Alcoho l Intake : never Drug use: Never Substa nce use type: does not use Househ old member s: spouse Housin g: apartm ent Number of Childr en: 2 curren t occupa tion: Caregi elvie What is your relati onship status ?: dirk smith Panel score (0-1 are the most social ly isolat ed patien ts): 1 Do you feel safe at home: Yes Do you feel safe in your relati onship ?: Yes SDOH(C are Manage ment) Screen ing Will the Patien t Partic ipate in the Screen ing?: Declin ed to provid e cc: ------ ------ ------ ------ ------ ------ ------ ------ ------ ------ ------ --- Dictat ed by: Ahmet Hensley dacrowan Dictat ed: Time: 948 Date: 155 Date: Date: Transc ribed Date: Transc ribed Time: 948 By: SHAVONNE Quintanilla This is privil eged, confid ential inform ation, intend ed only for the provid er named. Any use or distri bution by any person other than this provid er is strict ly prohib ited. If you receiv e this report in error, please notify us immedi cinthia at [phone] and return the origin al report to us at the addres s above. Thank you. [facility] [address], [place], [address] 07/06/2023 06:41:40 07/05/19 24 07/05/2023 elect agnes jones am EKG PATIELA T NAME: Arley Norman UNIT #: [id number] ORDERI NG PROVID ER: Vernon Dick ACCOUN T #: [id number] PRIMAR Y CARE PROVID ER: JADEN HISTOLOGIC TECHNICIAN,ABB Y DATE/T JULI OF SERVIC E: 722 : 1960 PERFOR [facility]ERT LOCATI ON: MS ------ ------ --- APPROV ED REPORT ------ ------ -- Exam: Restin g ECG Reason for Exam: previo us EKG was done jitendra rodríguez V2 Noni anne Locati on: I HR:72 bpm ECG Measur ements Heart Rate 72 AXIS FL 150 P 48 QRSd 80 QRS 88 QT 464 T 194 QTc 508 Conclu clotilde Sinus rhythm ...nor mal P axis, V-rate 50- 99 Border line right axis deviat ion... QRS axis ( 81, 90) Low voltag e, extrem ity leads. ..all extrem ity leads <0.5mV Abnorm al T, consid er ischem ia, diffus e leads. ..T <-0.20 mV, ant/la t/inf Prolon ged QT interv al...Q Tc >500mS ------ ------ ------ ------ ------ ------ ------ ------ ------ ------ ------ ------ ------ ------ ------ ------ ---- ------ - E-Sign Date: E-Sign Time: 08 [facility] [address] [place], [address] 07/06/2023 06:41:38 07/05/1907/05/2023 caterina jones am EKG ERICAELA T NAME: Arley Norman UNIT #: [id number] ORDERI NG PROVID ER: Vernon Dick T #: [id number] PRIMAR Y CARE PROVID ER: SHE STANLEY NP DATE/T JULI OF SISI E: 0551 : 1960 PERFOR [facility] LOCATI ON: MS ------ ------ --- APPROV ED REPORT ------ ------ -- Exam: Restin g ECG Reason for Exam: Latera l ischem ia with hypoxe contreras Noni rodríguez Locati on: I HR:69 bpm ECG Measur ements Heart Rate 69 AXIS FL 156 P 60 QRSd 73 QRS 85 QT 561 T 198 QTc 601 Conclu clotilde Incomp lete analys is due to missin g data in precor dial lead(s ) Sinus rhythm ...nor mal P axis, V-rate 50- 99 Low voltag e, extrem ity leads. ..all extrem ity leads <0.5mV Abnrm T, probab le ischem ia, sienna latera l lds... T <-0.50 mV, I aVL V2-V6 Prolon ged QT interv al...Q Tc >500mS Missarlene sandoval lead(s ): V2 ------ ------ ------ ------ ------ ------ ------ ------ ------ ------ ------ ------ ------ ------ ------ ------ ---- ------ - E-Sign Date: E-Sign Time: 820 [facility] [address] [place] [address], [address] 07/06/2023 06:41:37 07/05/1907/05/2023 caterina jones am EKG PATIELA Rodríguez NAME: Arley Norman UNIT #: [id number] ORDERI NG PROVID ER: Vernon Dick ACCOUN T #: [id number] PRIMAR Y CARE PROVID ER: SHE STANLEY NP Y DATE/T JULI OF SISI E: 233 : 1960 RADHA HERBERT LOCATI ON: MS ------ ------ --- APPROV ED REPORT ------ ------ -- Exam: Restin g ECG Reason for Exam: t wave change s Patiela t Locati on: I HR:81 bpm ECG Measur ements Heart Rate 81 AXIS FL 143 P 56 QRSd 87 QRS 92 QT 491 T 201 QTc 570 Conclu clotilde Sinus rhythm ...nor mal P axis, V-rate 50- 99 Low voltag e, extrem ity and precor dial leads. ..extr emity< 0.5mV, precor dial<1 .0mV Abnrm T, probab le ischem ia, sienna latera l lds... T <-0.50 mV, I aVL V2-V6 Prolon ged QT interv al...Q Tc >500mS ------ ------ ------ ------ ------ ------ ------ ------ ------ ------ ------ ------ ------ ------ ------ ------ ---- ------ - E-Sign Date: E-Sign Time: 820 [id number] [facility] [address] [place], [address] 07/06/2023 06:41:36 07/05/1907/02/2023 caterina jones am EKG NONI Rodríguez NAME: Brennen doeArley dubose Antonette UNIT #: [id number] [facility] NG PROVID ER: Moustapha Baker M.D. ACCOUN T #: [id number] [facility] ER: SHE STANLEY NP Y DATE/T JULI OF SERVIC E: 1609 : 1960 [facility] HERBERT LOCATI ON: MS ------ ------ --- APPROV ED REPORT ------ ------ -- Exam: Restin g ECG Reason for Exam: trop + Noni rodríguez Locati on: E HR:109 bpm ECG Measur ements Heart Rate 109 AXIS FL 159 P 69 QRSd 76 QRS 84 QT 334 T 55 QTc 450 Conclu clotilde Sinus tachyc ardia. ..rate > 99 Anteri or infarc t, old... Q >40mS, abnorm al ST-T, V2-V5 ____ Repeat ECG showin g narrow comple x sinus tachyc ardia rate of 109. Normal axis. Interv als within normal limits . T wave flatte oly in aVL. Compar ed to prior dated earlie r today no acute change s. T wave flatte oly in aVL is persis tent. Low voltag e is also persis tent. ------ ------ ------ ------ ------ ------ ------ ------ ------ ------ ------ ------ ------ ------ ------ ------ ---- ------ - E-Sign Date: E-Sign Time: 1656 ------ ------ --- ADDEND UM APPROV ED REPORT ------ ------ -- Exam: Restin g ECG Reason for Exam: trop + Patien t Locati on: E HR:109 bpm ECG Measur ements Heart Rate 109 AXIS FL 159 P 69 QRSd 76 QRS 84 QT 334 T 55 QTc 450 Conclu clotilde Sinus tachyc ardia. ..rate > 99 Anteri or infarc t, old... Q >40mS, abnorm al ST-T, V2-V5 ____ Repeat ECG showin g narrow comple x sinus tachyc ardia rate of 109. Normal axis. Interv als within normal limits . T wave flatte oly in aVL. Compar ed to prior dated earlie r today no acute change s. T wave flatte oly in aVL is persis tent. Low voltag e is also persis tent. I have review ed and I agree with the emerge ncy room physic laureen's ECG interp retati on. Electr onical ly signed by: 25 Cosign ed by: [email or web address] [facility] [address] [place], [address] 07/06/2023 06:41:41 07/05/1907/05/2023 ultra sound imagi ng jose cruz t Noni t Name: Arley Norman Unit #: [id number] Loc: MS Jerman contreras Provid er: Erin Damon M.D. t #: [id number] Status : ADM IN [facility] er: Chris Stanley Date of Exam: Sex: F Admiss ion Date: : 1960 Age: 63 ------ ------ --- APPROV ED REPORT ------ ------ -- EXAM: Compre hensiv e 2D, Dopple r, and color- flow Echoca rdiogr am Noni rodríguez Locati on: In-Pat ient Room/B ed: 226 Sonogr apher: Jayy Greene RDCS (AE) Indica tions: NSTEMI Conclu clotilde Normal left ventri cular wall thickn ess and chambe r size. Ejecti on fracti on is 55%. There is very mild apical hypoki nesis Normal right ventri cular size and functi on both atria are normal in size There is no struct ural or hemody namica lly signif icant valvul ar diseas e Wall motion Left Ventri tristen The left ventri tristen is normal size. The left ventri cular systol ic functi on is normal . The left ventri cular ejecti on fracti on is within the normal range. There is normal left ventri cular wall thickn ess. There is apical hypoki nesis Ventri cular wall is not well visual ized in subcos brittany views due to G-tube bandag ing. LVEF is 55%. Right Ventri tristen The right ventri tristen is normal size. The right ventri cular systol ic functi on is normal . Atria The left atrium size is normal . The right atrium size is normal . Intera trial septum not well visual ized in subcos brittany views due to G-tube bandag ing. Aortic Valve The aortic valve is normal in struct ure. Aortic valve is trilea flet. There is no aortic valvul ar stenos is. No aortic regurg itatio n is presen t. Mitral Valve The mitral valve is normal in struct ure. No eviden ce of mitral valve stenos is. Trace mitral regurg itatio n. Tricus pid Valve The tricus pid valve is normal in struct ure. There is no tricus pid valve stenos is. Mild tricus pid regurg itatio n. The RVSP is 23.1 mmHg. Pulmon ic Valve The pulmon giovanny valve is normal in struct ure. There is no pulmon ic valvul ar stenos is. There is no pulmon ic valvul ar regurg itatio n. Great Vessel s The aortic root is normal in size. Ascend ing aorta is not well visual ized. Aortic arch is normal in calibe r. IVC is normal in size and collap ses >50% with inspir ation. Perica rdium There is no perica rdial effusi on. 2D Dimens ions IVSD d PLAX 0.89 cm F: 0.6-1. 0 Ao Root d 2.59 cm F: 2.7 - 3.3 LVPW d PLAX 0.88 cm F: 0.6 - 1.0 LVID d PLAX 3.62 cm F: 3.8 - 5.2 LVDs 2.59 cm F: 2.2 - 3.5 LV EF Teichh olz 55.7 % FS 28.41 % LV EDV (Teich ) 55.0 mL LV ESV (Teich ) 24.3 mL M-Mode TAPSE 2.26 cm (M/F) >1.7 Auto EF LV EDV A4C 74.1 mL LV EDV A2C 79.8 mL LV EDV BP 77.7 mL LV ESV A4C 33.1 mL LV ESV A2C 35.1 mL LV ESV BP 35.0 mL LVEF(% ) A4C 55.4 % LVEF(% ) A2C 56.0 % LVEF(% ) BP 54.9 % LV SV A4C 41.0 ml LV SV A2C 44.7 ml LV SV BP 42.7 ml LV CO A4C 2.9 L/min LV CO A2C 2.8 L/min LV CO BP 2.8 L/min HR A4C 69.63 BPM HR A2C 61.65 BPM LV EDV Index (BP) LA Volume LA Length A4C 3.9 cm LA Length A2C 4.5 cm LA Area A4C s 11.05 cm2 LA Area A2C s 12.82 cm2 LA Vol A4C A-L 26.26 mL LA Vol A2C A-L 30.87 mL LA Vol Biplan e A-L 30.5 mL LA Vol A4C MOD 23.0 mL LA Vol A2C MOD 30.2 mL LA Vol BP MOD 27.4 mL RA Volume RA Area A4C 6.7 cm2 RA ESV A4C (A-L) 10.9mL RA Vol/BS A A4C A-L RA Length A4C 3.5 cm RA ESV A4C (MOD) 9.9mL LV Diasto logy MV E' medial 0.067 (>0.07 m/s) MV E Vmax 0.65 (0.4-1 .3 m/s) MV E/E' MED 9.80 (<14) MV A Vmax 0.95 (0.4-1 .3 m/s) MV E' latera l 0.084 (>0.1 m/s) E/A Ratio 0.7 MV E/E' LAT 7.73 (<14) MV E' Averag e 0.075 m/s MV E/E'(a verage ) 8.64 Aortic Valve AoV Vmax 1.35 m/s LVOT Vmax 1.13 m/s AoV Peak Grad 7.3 mmHg LVOT Peak Grad 5.1 mmHg AoV Area (Vmax) 2.54 cm2 LVOT VTI 0.211 m AoV VTI 0.256 m LVOT Mean Grad 2.4 mmHg AoV Mean Jacky. 0.98 m/s LVOT SV 64.12 mL AoV Mean Grad 4.3 mmHg LVOT Diam s 1.95 cm AoV Area (VTI) 2.50 cm2 Veloci ty Ratio 0.84 Mitral Valve MV DT 204 (160-2 40 msec) Pulmon giovanny Valve PV Vmax 0.81 (0.5-1 .5 m/s) RVOT Vmax 0.70 m/s PV Peak Grad 2.6 mmHg RVOT Peak Gr. 1.9 mmHg PV Mean Jacky 0.60 m/s RVOT VTI 0.135 m PV Mean Grad 1.6 mmHg RVOT Mean Gr. 1.1 mmHg Tricus pid Valve RA Pressu re 3.00 mmHg TR Vmax 2.24 m/s TR Peak Grad 20.0 mmHg RVSP (TR) 23.1 mmHg Ordere d By: Erin Damon M.D. CC: ------ ------ ------ ------ ------ ------ ------ ------ ------ ------ ------ ------ - Dictat ed By: Chiquis Leblanc M.D. 926 Transc ribed By: Chiquis Leblanc MD 926 This is privil eged, confid ential inform ation intend ed only for the provid er named. Any use or distri bution by any person other than this provid er is strict ly prohib ited. If you receiv e this report in error, please notify us immedi cinthia at and return the origin al report to us at the addres s above. Thank- you. [email or web address] [facility] [address] [place], [address] 07/06/2023 06:41:35 07/05/19 24 07/05/2023 cardi ology consu ltati on CARDIO LOGY CONSUL DEVIKA Rodríguez NAME: Arley Norman cortezanne Antonette UNIT #: [id number] ORDERI NG PROVID ER: DUTCH T #: [id number] PRIMAR Y CARE PROVID ER: JADEN STILL,SHE Y DATE/T JULI OF SERVIC E: : 1960 Date of servic e: Time of Servic e: 12:29 Assess ment and Plan Assess ment and plan (1) Acute on chroni c respir atory failur e with hypoxi a and hyperc apnia: Status : Acute Assess ment and plan: Noni cartwright with an acute illnes s which is being approp riatel y treate d (2) Myocar dial injury : Status : Acute Assess ment and plan: Truong mathews it is sugges tive again of a stress -induc ed cardia c event. Her EKG is consis tent with Takots ubo as is her echoca rdiogr am, though her apical wall motion abnorm ality is much less pronou nced compar ed to her prior. She had a grey ry CTA which was entire ly normal back in August. I do not think she requir es left heart cathet erizat ion at this time. When her overal l medica l condit ion permit s, it would be reason able to perfor m a myocar dial perfus ion imagin g study Histor y of Truong rodríguez Illnes s Narrat reilly: This is a 63-yea r-old woman who presen gabbie to the hospit al over the week with diffic ulty breath ing. She has a past histor y of stress -induc ed cardio myopat hy (Takot subo) in the spring 2022. Evalua tion includ ed a grey ry CTA which was entire ly normal . None of her grey ry arteri es showed any stenos is or plaque . Subseq uently her left ventri cular functi on recove red. She came to the hospit al with diffic ulty breath ing, was exacer bation of COPD or bronch ioliti s. Her EKG showed diffus e T wave invers ions. Her tropon ins were elevat ed with a peak of 504. She had an echoca rdiogr am done. Her EF was 55% with a subtle apical wall motion abnorm ality Review of System s Narrat reilly: Noni rodríguez was not interv iewed or examin ed PFSH All Active Proble ms (Revie wed @ 12:35 by Chiquis Leblanc MD) Acute on chroni c respir atory failur e with hypoxi a and hyperc apnia (Acute ) Discha rge planni ng issues (Acute ) DVT prophy laxis (Acute ) HFrEF (heart failur e with reduce d ejecti on fracti on) (Chron ic) Bronch ioliti s (Acute ) NSTEMI (non-S T elevat ed myocar dial infarc tion) (Acute ) Per pt. 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 (Chron ic) Acute respir atory failur e with hypoxi a (Acute ) COVID (Acute ) Depres clotilde (Chron ic) Bipola r 1 disord er (Chron ic) Diabet es (Chron ic) Cholel ithias is (Chron ic) Ventra l hernia (Acute ) Leukoc ytosis (Acute ) Pleura l effusi on (Acute ) Black tarry stools (Acute ) Chroni c diarrh ea (Acute ) Thierno t's esopha jayna (Chron ic) Esopha geal ulcer with bleedi ng (Acute ) Erosiv e esopha gitis (Acute ) Thierno t's esopha jayna determ ined by endosc opy (Acute ) Hyperp lastic colon polyp (Acute ) Tubula r adenom a (Acute ) Neurol eptic induce d vance sonism (Acute ) Drug-i nduced vance sonism (Acute ) Anemia (Chron ic) Status post hip surger y (Acute ) H/O: pneumo manisha (Acute ) Abnorm al chest xray (Acute ) Pre-op evalua tion (Acute ) Medica l Histor y (Revie wed @ 12:35 by Chiquis Leblanc MD) Esopha geal strict ure Chroni c systol ic (conge stive) heart failur e Aspira tion pneumo manisha Stress -induc ed cardio myopat hy acute onset manage d at [facility] [place] 08/30 presso rs, EF 25%, has since recove red RH Acute cardio genic pulmon giovanny edema Acute metabo lic enceph alopat hy Bilate ral pneumo manisha Hypoka lemia Closed fractu re of neck of left femur s/p Percut aneous Screw Fixati on 08/09/22 Consti pation Diabet es mellit us type 2 in obese Chroni c iron defici ency anemia ETOH abuse Poorly contro lled diabet es mellit us Chroni c pancre atitis due to acute alcoho l intoxi cation Alcoho l abuse Per pt. jojo smith states she has never had an issues with any subtan dov Histor y of piloni ray cyst Anxiet y Surgic al Histor y (Revie wed @ 12:35 by Chiquis Leblanc MD) Histor y of total left hip arthro plasty (01/19) S/P laparo scopic proced ure cyst remove d from stomac h per patien t S/P surgic al remova l of piloni ray cyst Histor y of esopha gogast roduod enosco py (EGD) ( ) Histor y of colono scopy with polype ctomy ( ) Histor y of hyster ectomy Histor y of tonsil lectom y Histor y of kailee an sectio n Family Histor y (Revie wed @ 12:35 by Chiquis Leblanc MD) Father Hypert ension Diabet es Heart diseas e Social Histor y (Revie wed @ 12:35 by Chiquis Leblanc MD) 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 Use Status : Never Smokin g risk assess ment perfor med?: Yes Alcoho l Intake : never Drug use: Never Substa nce use type: does not use Househ old member s: spouse Housin g: apartm ent Number of Childr en: 2 curren t occupa tion: Caregi elvie What is your relati onship status ?: dirk smith Panel score (0-1 are the most social ly isolat ed patien ts): 1 Do you feel safe at home: Yes Do you feel safe in your relati onship ?: Yes Exam Narrat reilly Exam Narrat reilly: Patien t was not examin ed Result s Last Vital Signs Temp 36.6 C 11:21 Pulse 61 11:21 Resp 16 11:21 BP 93/58 L 11:21 Pulse Ox 93 11:21 Labs 05:48 05:48 Labs: Chad adair Result s - last 24 hr 18:28 10:31 Unknow n C-Reac tive Protei n < 0.50 Procal citoni n < 0.1 Urine Legion mikala Ag Negati ve Add-On Test Reques t DONE CC: ------ ------ ------ ------ ------ ------ ------ ------ ------ ------ ------ ------ ------ ------ ------ ------ ---- -- Dictat ed by: JANIS MARTE,RUKHSANA COLMENARES Dictat ed:: [id number] Transc ribed Date: Transc ribed Time: 1229 By: VIRAJ This is privil eged, confid ential inform ation, intend ed only for the provid er named. Any use or distri bution by any person other than this provid er is strict ly prohib ited. If you receiv e this report in error, please notify us immedi hillly at and return the origin al report to us at the addres s above. Thank you. [facility] [address], [place], [address] 07/06/2023 06:41:34 07/05/19 24 07/05/2023 care manag ement disch arge Care Manage ment Discha rge PATIELA T NAME: Arley Norman UNIT #: [id number] ADMITT ING PROVID ER: Ricki Hooper T #: [id number] PRIMAR Y CARE PROVID ER: YOUNG HISTOLOGIC TECHNICIAN,ABB Y DATE OF ADMIT: 0 4 : 1960 Date of servic e: Time of Servic e: 18:10 LACE Index [facility] ons: Length of Stay (in days): 2 Was the noni rodríguez admitt ed via the E.D.?: Yes Comorb iditie s: Previo us M.I., Diabet es w/o Compli cation , Conges tive Heart Failur e and Chroni c Pulmon giovanny Diseas e E.D. Visits : 7 Answer s: Total Score: 14 Risk of Readmi ssion: High Risk Care Manage ment Discha rge Plan Reason for Hospit alizat ion: Bronci olitis , Acute Hypoxi c Hyperc apnic Respir atory Failur e Discha rge Plan: Binta rodríguez return ed home today with no new servic es. CM discus sed HH servic es with Binta rodríguez, which she declin ed. Her husban d drove her home via privat e vehicl e. She will follow up with her PCP and discha rge plan of care. She was happy to be going home. Noni t/Fami ly Educat ion Needs: Review discha rge instru ctions and limita tions, discus clotilde of self care needs includ ing ask me three . SDOH Health Relate d Social Needs: No Data to Displa y cc: ------ ------ ------ ------ ------ ------ ------ ------ ------ ------ ------ --- Dictat ed by: Ricki Hooper Dictat ed: Time: 1809 Date: 1811 Date: Date: Transc ribed Date: Transc ribed Time: 1809 By: RANULFO Caba This is privil eged, confid ential inform ation, intend ed only for the provid er named. Any use or distri bution by any person other than this provid er is strict ly prohib ited. If you receiv e this report in error, please notify us immedi hillly at and return the origin al report to us at the addres s above. Thank you. [email or web address] [facility] [address] [place], [address] 07/06/2023 06:41:33 07/06/19 24 07/05/2023 disch arge summa ry DISCHA RGE SUMMAR Y PATIEN T NAME: Arley Norman UNIT #: [id number] ADMITT ING PROVID ER: CHIP MARTINEZ MD, ALEXI CLAIRE ACCOUN T #: [id number] PRIMAR Y CARE PROVID ER: JADEN STILL,ABB Y DATE OF ADMIT: 0 4 : 1960 DISCHA RGE DATE: Date of servic e: Time of Servic e: 15:32 DS: Diagno sis Discha rge Diagno sis (1) Acute on chroni c respir atory failur e with hypoxi a and hyperc apnia: Status : Acute Asessm ent and Plan: 62-yea r-old Caucas laureen female patien t with a past medica l histor y of aspira tion pneumo manisha, type II diabet es, NSTEMI , bipola r disord er, Thierno t's esopha jayna, esopha geal strict ure, s/p freque nt esopha geal dilata tion, s/p PEG for feedin gs, Takots ubo cardio myopat hy (LVEF 50% per echo 3 who prsent ed to [facility] E.DYisel on 3 w/ one week of cough produc tive of purule nt sputum after treatm ent w/ one week of Augmen tin and recent COVID infect ion 3 weeks ago. Workup includ ed CXR that showed bronch ioliti s but no pneumo maritza consol idatio n. She never had a fever or rigors but presen gabbie w/ acute hypoxe chavo and hyperc arbic respir atory failur e (pH 7.27, pCO2 71, pO2 44 (on VBG), SPO2 95% but was on supple mental oxygen per EMS, noni rodríguez also w/ incess ant coughi ng and wheezi ng. Noni rodríguez was treate d w/ DuoNeb aeroso ls and starte d on Ceftri axone and doxycy jaramillo. Sputum grew normal oral wiley. Steroi ds were begun. She improv e and was able to be weaned off oxygen . Hospit al stay was compli cated by elevat ed tropon in I levels that chanda to as high as 504 before declin ing to 162. This was associ ated w/ diffus e T wave invers ions across her precor dial leads as well as I, avL, and II and avF. Echoca rdiogr am was perfor med and demons trated very mild apical hypoki nesis and preser sonia LVEF of 55% and normal RV size and functi on w/ no valvul ar abnorm alitie s. Noni rodríguez has had prior cardia c CT w/ report edly a zero calciu m score but has never had cardia c cath or stress MPI. On the day of her hospit al discha rge, Dr. Leblanc, cardio logist was consul gabbie, see her report for detail s. In summar y she feels that again her NSTEMI was actual ly a type II demand ischem ia felipe t on by her hypoxe contreras and hyperc arbia and the patien t is exhibi ting [employer] cardio myopat hy. Eliseo r, noni rodríguez should have a follow up stress MPI study. The patien t's jojo cartwright that he will call the patien t's cardio logist , Dr. Hernandez at [facility] and get her an expedi gabbie outpat ient follow up. (2) Myocar dial injury : Status : Acute Discha rge Plan Dispos ition Patien t Dispos ition: Home Condit ion: Improv ing Discha rge Detail s Reason For Visit: Bronch ioliti s,Acut e Hypoxi c Hyperc apnic Respir ator Admit Date/T juli: 16:21 Admit Provid er: Erin Damon Attend ing Provid er: Erin Damon Primar y Care Provid er: Chris Stanley Home Meds and New Rx's Prescr iption s: New amoxic illin- pot clavul anate [Augme ntin] 250-62 .5 mg/5 mL suspen clotilde for recons tituti on 10 ml feedin g tube TID 3 Days Qty: 90 0RF predni solone 15 mg/5 mL soluti on 15 mg feedin g tube DAILY 5 Days Qty: 25 0RF guaife nesin 200 mg/5 mL liquid 200 mg feedin g tube Q4H PRNQty : 118 0RF aspiri n 81 mg tablet ,chewa ble 81 mg feedin g tube DAILY Qty: 30 0RF Contin ued buprop ion HCl 100 mg tablet 300 mg PO DAILY Patien t Commen ts: via g-tube , per pcp ov notes 12/09/22 RH protei n Powder See Rx Instru ctions PO .COMPL EX Rx Instru ctions : 2 scoops daily gabape ntin 300 mg capsul e 900 mg feedin g tube TID Patien t Commen ts: via g-tube Entres to 24-26 mg tablet 1 tab feedin g tube BID Patien t Commen ts: via g-tube Jardia nce 10 mg tablet 10 mg PO DAILY quetia pine 100 mg tablet 100 mg PO QHS atorva statin 80 mg tablet 80 mg PO DAILY valpro ic acid (as sodium salt) 250 mg/5 mL soluti on 300 mg PO TID Rx Instru ctions : 6mls TID metopr olol succin ate 50 mg tablet extend ed releas e 24 hr 25 mg PO BID sucral fate 1 gram tablet 1 g PO QID Patien t Commen ts: TAKE ONE TABLET BY MOUTH FOUR TIMES A DAY folic acid 1 mg Tablet 1 mg PO DAILY Qty: 0 0RF ferrou s sulfat e 300 mg (60 mg iron)/ 5 mL liquid 300 mg feedin g tube .QOD Patien t Commen ts: TAKE 5ML VIA G-TUBE EVERY OTHER DAY Humuli n N NPH Insuli n KwikPe n 100 unit/m L (3 mL) insuli n pen See Rx Instru ctions .ROUTE .COMPL EX Qty: 0 0RF Rx Instru ctions : 20 units at 11 am follow ed by slidin g scale at 3 pm (5 units for blood sugar of 250 plus 1 additi onal unit for any 20 points that the blood sugar is above 250) ibupro fen 100 mg/5 mL suspen clotilde 600 mg PO Q8H PRN acetam inophe n 500 mg/15 mL liquid 1,000 mg PO Q8H PRNQty : 237 2RF nystat in 100,00 0 unit/g emily powder 1 applic TOPICA L TID PRN Patien t Commen ts: APPLY TO BUTTOC [place] THREE TIMES A DAY NEEDED pantop razole [address] for susp in packet 40 mg G-tube DAILY Patien t Commen ts: Take 1 packet via g-tube twice a day Admini ster in 10 mL of apple juice via g-tub, then follow with anothe r 10 mL. nystat in 100,00 0 unit/g emily cream 1 applic TOPICA L TID PRN Pati t Commen ts: APPLY A SMALL AMOUNT TO AFFECT ED AREA(S ) ON BUTTOC [place] THREE TIMES A DAY NEEDED melato moni 3 mg tablet 9 mg feedin g tube HS Pati t Commen ts: TAKE THREE TABLET S VIA G-TUBE EVERY NIGHT DIRECT ED insuli n glargi ne [Lantu s Solost ar U-100 Insuli n] 100 unit/m L (3 mL) insuli n pen 10 unit SUBCUT QPM Pati t Commen ts: INJECT 10 UNITS UNDER THE SKIN NIGHTL Y DIRECT ED ondans etron HCl 4 mg tablet 8 mg feedin g tube Q8H PRN Pati t Commen ts: TAKE ONE TABLET VIA G-TUBE EVERY 8 HOURS NEEDED Discha rge Instru ctions Instru ctions : Amoxic illin/ Clavul anate Potass ium (By mouth) , Dilate d Cardio myopat hy (DC), Bronch ioliti s (DC) Additi onal Instru ctions : You were treate d for acute hypoxe chavo (low oxygen ) and hyperc apneic (eleva gabbie carbon dioxid e) respir atory failur e probab ly precip itated by acute bronch ioliti s and chroni c aspira tion compli cated by type II demand cardia c ischem ia, [employer] cardio myopat hy. You were seen by Dr. Leblanc, cardio logist who read your echoca rdiogr am which did not show any signif icant change s over your prior echoca rdiogr am (ultra sound of your heart) . You should follow up w/ your [facility] cardio logist and discus s having a stress test or having a cardia c cathet erizat ion to rule out grey ry artery diseas e.. Stand Alone Forms: Nursin g Discha rge Form Referr als: Chris Stanley [Prima ry Care Provid er] - 11:00 am (needs follow up in the next week) Activi ty:: Activi ty as Tolera gabbie Equipm ent/Maldonado pplies :: No Equipm ent Needed Diet:: tube feedin gs Discha rge Orders Discha rge Orders : Discha rge Order (Emilia whitt); Ordere d Ordere d By: Rory martinez Discha rge Data Discha rge Date/T juli-TO BE ENTERE D AT DEPART URE: 16:02 DS: Summar y Time Spent with Patien t provid ing and/or coordi nating discha rge servic es: Greate r than 30 minute s Specif ic discha rge activi ties: Interv iew/ex am of patien t; review of discha rge instru ctions , comple tion of prescr iption s/disc harge instru ctions ; discus clotilde w/ nursin g and CM; docume ntatio n of hospit al visit Status at [facility]: uses cane/w alker Overal l status at discha rge: patien t is progre ssing back to baseli ne Mental Status : mental status grossl y normal Speech and Moveme nt: speech and moveme nt normal Mood: congru ent mood Affect : normal affect Qualit y:SDOH Health Relate d Social Needs: No Data to Displa y Exam Narrat reilly Exam Narrat reilly: Middle -aged white female sitjames g up in her chair talkin g with her son and her husban d. She is alert and orient ed x 3 denies any chest pain pressu re palpit ations denies any dyspne a. Lungs are clear to auscul tation Heart is regula r rate and rhythm no murmur rub Extrem ities withou t periph eral edema Psych Mental Status : mental status grossl y normal Speech and Moveme nt: speech and moveme nt normal Mood: congru ent mood Affect : normal affect DS: Data Vitals /I O Vitals and I O: Vital Signs Temper ature 36.6 C 11:21 Temper ature Source Tympan ic 11:21 Pulse 61 11:21 Pulse Rhythm Regula r 14:42 Pulse 101 H 18:33 Respir atory Rate 16 11:21 Respir atory Effort Normal , Non-La bored 14:42 Respir atory Depth Normal 14:42 Respir atory Patter n Normal 14:42 Blood Pressu re 93/58 L 11:21 Blood Pressu re Mean 85 18:35 Blood Pressu re Positi on Sittin g 18:35 Pulse Oximet ry 93 11:21 Oxygen Delive ry Method Room Air 11:21 Oxygen Flow Rate 0 11:21 Fracti on of Inspir ed Oxygen (FIO2) 07:33 Pain Level 0 11:21 Commen t RN Notifi ed 20:37 Intake Output 23:59 11:59 23:59 Intake Total 160 / 1010 360 / 520 160 / 520 Output Total 850 / 1250 650 / 650 Balanc e -690 / -240 -290 / -130 160 / -130 Intake : IV 160 / 170 120 / 280 160 / 280 Oral 240 / 240 Output : Urine 850 / 1250 550 / 550 Stool 100 / 100 Other: Urine Color Pale Pale Yellow Yellow Yellow Urine Appear ance Clear Clear Clear Urine Odor Normal Normal Commen t mixed with loose stool mix with stool Stool Size Smear Small Small Stool Charac terist ics Liquid Soft Liquid Brown Voidin g Method s Bedsid e Commod e Bedsid e Commod e Bedsid e Commod e Data Comple gabbie and Pendin g Labs on day of discha rge: Labs from last 24 hours Unknow n 10:31 18:28 C-Reac tive Protei n < 0.50 Procal citoni n < 0.1 Urine Legion mikala Ag Negati ve Add-On Test Reques t DONE PFSH All Active Proble ms (Revie wed @ 15:32 by Rory martinez MD) Acute on chroni c respir atory failur e with hypoxi a and hyperc apnia (Acute ) Discha rge planni ng issues (Acute ) DVT prophy laxis (Acute ) HFrEF (heart failur e with reduce d ejecti on fracti on) (Chron ic) Bronch ioliti s (Acute ) NSTEMI (non-S T elevat ed myocar dial infarc tion) (Acute ) Per pt. 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 (Chron ic) Acute respir atory failur e with hypoxi a (Acute ) COVID (Acute ) Depres clotilde (Chron ic) Bipola r 1 disord er (Chron ic) Diabet es (Chron ic) Cholel ithias is (Chron ic) Ventra l hernia (Acute ) Leukoc ytosis (Acute ) Pleura l effusi on (Acute ) Black tarry stools (Acute ) Chroni c diarrh ea (Acute ) Thierno t's esopha jayna (Chron ic) Esopha geal ulcer with bleedi ng (Acute ) Erosiv e esopha gitis (Acute ) Thierno t's esopha jayna determ ined by endosc opy (Acute ) Hyperp lastic colon polyp (Acute ) Tubula r adenom a (Acute 02/01/ 22) Neurol eptic induce d vance sonism (Acute ) Drug-i nduced vance sonism (Acute ) Anemia (Chron ic) Status post hip surger y (Acute ) H/O: pneumo manisha (Acute ) Abnorm al chest xray (Acute ) Pre-op evalua tion (Acute ) Medica l Histor y (Revie wed @ 15:32 by Rory martinez MD) Esopha geal strict ure Chroni c systol ic (conge stive) heart failur e Aspira tion pneumo manisha Stress -induc ed cardio myopat hy acute onset manage d at [facility] 08/30 presso rs, EF 25%, has since recove red RH Acute cardio genic pulmon giovanny edema Acute metabo lic enceph alopat hy Bilate ral pneumo manisha Hypoka lemia Closed fractu re of neck of left femur s/p Percut aneous Screw Fixati on 08/09/22 Consti pation Diabet es mellit us type 2 in obese Chroni c iron defici ency anemia ETOH abuse Poorly contro lled diabet es mellit us Chroni c pancre atitis due to acute alcoho l intoxi cation Alcoho l abuse Per pt. jojo d states she has never had an issues with any subtan dov Histor y of piloni ray cyst Anxiet y Surgic al Histor y (Revie wed @ 15:32 by Rory martinez MD) Histor y of total left hip arthro plasty (01/19) S/P laparo scopic proced ure cyst remove d from stomac h per patien t S/P surgic al remova l of piloni ray cyst Histor y of esopha gogast roduod enosco py (EGD) ( ) Histor y of colono scopy with polype ctomy ( ) Histor y of hyster ectomy Histor y of tonsil lectom y Histor y of kailee an sectio n Family Histor y (Revie wed @ 15:32 by Rory martinez MD) Father Hypert ension Diabet es Heart diseas e Social Histor y (Revie wed @ 15:32 by Rory martinez MD) 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 Use Status : Never Smokin g risk assess ment perfor med?: Yes Alcoho l Intake : never Drug use: Never Substa nce use type: does not use Househ old member s: spouse Kyrie g: apartm ent Number of Childr en: 2 curren t occupa tion: Caregi elvie What is your relati onship status ?: dirk smith Panel score (0-1 are the most social ly isolat ed patien ts): 1 Do you feel safe at home: Yes Do you feel safe in your relati onship ?: Yes Time Spent with Patien t Time Spent with Patien t: <45 minute s Time was spent: prepar ing to see the patien t(eg.r eview tests) , orderi ng medica tions, tests, proced ures, indepe ntentl y interp reting result s, counse ling the patien t (And patien t's son and jojo d) and care [facility] CC: ------ ------ ------ ------ ------ ------ ------ ------ ------ ------ ------ --- Dictat ed by: CHIP MARTINEZ MD, [facility] Dictat ed: Time: 1532 Date: 07/06 Time: 180 Transc ribed Date: Transc ribed Time: 1531 By: [facility] This is privil eged, confid ential inform ation, intend ed only for the [facility] named. Any use or distri bution by any person other than this [facility] is strict ly prohib ited. If you receiv e this report in error, please notify us immedi cinthia at and return the origin al report to us at the addres s above. Thank you. [email or web address] [place] [address], [place], [address] 07/07/2023 10:42:01 Result Notes None recorded. Problems Name Status Onset Date Resolution Date Notes Provider Name and Address Organization Details Recorded Time Gastroesopha geal reflux disease without esophagitis Active 2002 Orlin Alicea [facility] 4 18:50:25 Major depression, single episode Active 2009 Orlinlexx Alicea [facility] 4 18:51:57 Nicotine dependence Completed 201103/31/2023 Problem Code: Z87.891; Problem Code Type: ICD-10; [address], [facility] [address], [facility] 3 13:52:48 Hyperglycemi a due to type 2 diabetes mellitus Active [address], [facility] [id number] [place] [address] 4 10:46:42 Bipolar disorder Active 2012 [facility] 4 18:49:12 Hyperlipidem ia Active [address], [facility] [address] [place] [address] 4 10:49:59 Diaphragmati c hernia Active 2013 [facility] 4 18:49:50 Shoulder joint pain Completed 201403/31/2023 Problem Code: M25.519; Problem Code Type: ICD-10; [address], [facility] [address], [facility] 3 13:43:54 Acute sinusitis Completed 201506/26/2015 Problem Code: J01.90; Problem Code Type: ICD-10; [address], [facility] [address], [facility] 3 13:53:21 Acquired absence of cervix and uterus Completed 201507/15/2023 Problem Code: Z90.710; Problem Code Type: ICD-10; Orlin pantoja, [facility]. 4 18:48:56 Pain in thoracic spine Completed 201803/31/2023 Problem Code: M54.9; Problem Code Type: ICD-10; [address], [place], [address], [facility] 3 13:44:02 [facility] D deficiency [facility] 4 18:52:57 Generalized anxiety disorder Active 2019 [facility]linlexx [facility] 4 18:50:32 Cholelithias is without obstruction Active 2020 Orlinlexx Alice[facility] 4 18:49:27 Insomnia Active 2020 Orlin Alicea [facility]. 4 18:51:51 Hernia of anterior abdominal wall [facility] 4 18:51:22 Polyneuropat hy [facility] 20[facility] 4 18:52:04 Pain of left hip joint Completed 202203/31/2023 Problem Code: M25.552; Problem Code Type: ICD-10; [address], [place], [address], [facility] 3 13:44:40 Respiratory crackles Active [address], [place], [address], [facility] 3 14:48:31 Edema [facility] 4 18:50:11 Proteinuria Active 2022 Orlin Alicea [facility], [facility] 4 18:52:16 Senile osteoporosis Active 2022 MAIDA [address], [facility] [address] 4 10:53:05 Blood in urine Active 2022 Orlin pantoja, [facility] 4 18:49:21 Tremor Active 2019 facial movements Orlinlexx Alice[facility] 4 18:52:51 Incoordinati on Completed 202003/31/2023 06/09/2022 - Comments only - Chris BEY - Reported as significantly improved after completing PT. Problem Code: R27.9; Problem Code Type: ICD-10; [address], [place], [address], [facility] 3 13:45:29 Anemia Completed 202007/03/2021 Problem Code: D64.9; Problem Code Type: ICD-10; Not Available [facility] 3 04:28:58 Nausea and vomiting Completed 202007/03/2021 Problem Code: R11.2; Problem Code Type: ICD-10; Not Available [facility] 3 04:28:59 Mixed bipolar I disorder in partial remission Completed 201912/10/2022 Problem Code: F31.77; Problem Code Type: ICD-10; Not Available [facility] 3 04:29:00 Enterostomy malfunction Completed 202202/03/2023 Problem Code: K94.13; Problem Code Type: ICD-10; Not Available [facility] 3 04:29:00 Gastroesopha geal reflux disease Completed 200202/03/2023 Problem Code: 530.81; Problem Code Type: ICD-9; [address], [place], [address], [facility] 3 14:48:31 Pain of right shoulder joint Completed 201402/03/2023 Problem Code: M25.511; Problem Code Type: ICD-10; Not Available [facility] 3 04:29:00 Tobacco user Completed 201102/03/2023 Not Available [facility] 3 04:29:01 Left heart failure Completed 202212/10/2022 Problem Code: I50.1; Problem Code Type: ICD-10; Not Available [facility] 3 04:29:01 Hiatal hernia Completed 201302/03/2023 Not Available [facility] 3 04:29:02 Melena Completed 202007/03/2021 Problem Code: K92.1; Problem Code Type: ICD-10; Not Available [facility] 3 04:29:03 Left heart failure Completed 202212/10/2022 Problem Code: I50.1; Problem Code Type: ICD-10; Not Available [facility] 3 04:29:03 Secondary parkinsonism Completed 202112/10/2022 Problem Code: G21.19; Problem Code Type: ICD-10; Not Available [facility] 3 04:29:05 Noninflammat ory disorder of the vagina Completed 202007/03/2021 Problem Code: N89.8; Problem Code Type: ICD-10; [address], [place], [address], [facility]. 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 Completed 202203/31/[address], [place], [address], [facility] 3 13:52:25 Farrell's esophagus Active [address], [place], [address], [facility] 3 14:48:31 Gastroesopha geal reflux disease Active [address], [place], [address], [facility] 3 14:48:31 History of atrial flutter Active [address], [place], [address], [facility] 4 10:50:21 History of cardiomyopat hy Active 2022 Stress induced [address], [place], [address], [facility] 4 10:48:26 Hearing loss Active [address], [place], [address], [facility] 4 10:52:32 Hearing loss Active [address], [place], [address], [facility] 3 14:51:27 Cough Completed 202207/15/2023 Orlin pantoja, [facility] 4 18:53:36 Hip pain Active 2022 Farideh Massey RN null, [facility] 3 15:18:22 Prosthetic arthroplasty of hip Active 2022 Farideh Massey RN null, [facility] 3 15:18:56 Stricture of esophagus Active 2023 [address] [facility] [address], [place], [address], [facility] 4 13:06:33 Acute upper respiratory infection Completed 202307/15/2023 Orlin Alicea [facility] 4 18:53:17 Atrial flutter Active 2022 Orlin Alicea [facility] 4 18:54:59 Low blood pressure Active 2022 Orlin Alicea [facility] 4 18:55:17 Aftercare Completed 202207/15/2023 02/24/2023 - Comments only - Chris BEY - Minimal dehiscence of hip incision today. I do not think there is presence of infection at this time, but due to location within skin fold I think she is high risk. Recommended covering with Mepilex to prevent skin over skin maceration and irritation. Recommended dressing every other day. Problem Code: Z51.89; Problem Code Type: ICD-10; [facility] 4 18:54:42 Pneumonitis caused by inhaled substance Completed 202207/15/2023 Problem Code: J69.0; Problem Code Type: ICD-10; [facility] 4 18:54:15 Candidiasis of skin Active [address], [address], [facility] 4 15:24:45 Hypoxia Active [address], [facility] [address], [facility] 4 15:26:49 Muscle weakness Active [address], [address] 4 15:33:20 Type 2 diabetes mellitus Active [address], [address] 4 13:39:04 Aspiration pneumonia Completed 202307/15/2023 Orlin pantoja, [facility] 4 18:53:31 Total abdominal hysterectomy Active [address], [address] 4 10:48:57 History of gallstones Active 2020 Orlin pantoja, [facility] 4 18:56:20 Pressure injury of buttock Active [address], [facility] [id number] [place] [address] 4 09:34:51 Candidiasis of vagina Active [address], [facility] [address] 4 09:36:38 Problem Notes None recorded. Procedures Surgical History Date Name Laterality Status Provider Name and Address Organization Details Recorded Time 3 Most Recent Mammogram completed Prachi Blancas RN null, [place] - [facility], [facility] 04/23/2023 14:35:47 3 Most Recent Bone Density completed RUBIO VALDIVIA CMA null, [facility] 07/06/2023 11:40:24 2 Date of Last Colonoscopy completed RUBIO VALDIVIA CMA null, [facility] 07/06/2023 11:45:32 Imaging Results Imaging Date Name Status LastModified by Organization Details LastModified Time 07/02/2023 electrocardiogram completed [id number] [address] [place], [address] 07/02/2023 12:23:00 07/02/2023 electrocardiogram completed [id number] [address] [place], [address] 07/02/2023 12:23:00 07/02/2023 x-ray imaging report completed [id number] Jonatan iglesias[address] [place], [address] 07/02/2023 13:39:28 07/02/2023 electrocardiogram completed [id number] [address] [place], [address] 07/03/2023 06:42:41 07/02/2023 history physical examination completed [email or web address] [address] [place], [address] 07/03/2023 06:43:46 07/02/2023 ED visit note completed [id number] [address] [place], [address] 07/03/2023 06:43:47 07/03/2023 progress note completed [id number] [address] [place], [address] 07/06/2023 06:41:39 07/04/2023 progress note completed [address] [place], [address] 07/06/2023 06:41:39 07/03/2023 initial care management assess completed [address] [place], [address] 07/06/2023 06:41:40 07/05/2023 electrocardiogram completed [address] [place], [address] 07/06/2023 06:41:38 07/05/2023 electrocardiogram completed [address] [place], [address] 07/06/2023 06:41:37 07/05/2023 electrocardiogram completed [address] [place], [address] 07/06/2023 06:41:36 07/02/2023 electrocardiogram completed [address] [place], [address] 07/06/2023 06:41:41 07/05/2023 ultrasound imaging report completed [address] [place], [address] 07/06/2023 06:41:35 07/05/2023 cardiology consultation completed [address] [place] [place], [address] 07/06/2023 06:41:34 07/05/2023 care management discharge completed [address] [place] [place], [address] 07/06/2023 06:41:33 07/05/2023 discharge summary completed [address] [place], [address] 07/07/2023 10:42:01 Procedure Notes None recorded. Medical Equipment None Reported. Allergies Allergen ID Allergen Name Allergen Category Reaction Reaction Severity Criticality Documentation Date Start Date Code Code System Note Provider Name and Address Organization Details Recorded Time 72256 metformin hydrochlo ride medicatio n diarrhea moderate Not available 03/19/20232019 33718 3 RxNorm Diarr hea Not Available [facility] 16:31:03 48363 Demerol medicatio n vomiting mild Not available 03/19/20232005 45104 1 RxNorm Orlin Alicea null, [place] - [facility], [facility]. 4 18:45:52 Medications Name Sig Start Date Stop Date Status Note LastModified by Organization Details LastModified Time atorvasta tin 40 mg tablet Take 1 tab by mouth daily at bedtime 06/14 completed Not Available Not Available Not Available metformin 500 mg tablet Take two tablets by mouth twice daily. 06/12 completed Not Available Not Available Not Available atorvasta tin 80 mg tablet TAKE 1 TABLET BY MOUTH EVERY NIGHT active Not Available Not Available No t Available nystatin 100,000 unit/mL oral suspensio n Swish and swallow 5ml QID. Try to swish for 2 minutes before swallowi ng. 05/24 completed Not Available Not Available Not Available atorvasta tin 20 mg tablet Take 1 tab by mouth daily at bedtime 09/14 completed Not Available Not Available Not Available ipratropi um 0.5 mg-albute rol 3 mg (2.5 mg base)/3 mL nebulizat ion soln INHALE THE CONTENTS OF ONE VIAL VIA NEBULIZE R FOUR TIMES A DAY active Not Available Not Available No t Available ketoconaz ole 2 % shampoo Shampoo as directed twice weekly x 4 weeks, then as needed 09/17 completed Not Available Not Available Not Available acetamino phen 160 mg/5 mL oral liquid 1000 mg twice daily active Not Available Not Available No t Available trazodone 50 mg tablet 1/2-1 [facility] 05/14 completed Not Available Not Available Not Available cefpodoxi me 200 mg tablet TAKE ONE TABLET BY MOUTH TWICE A DAY WITH A MEAL/RODRIGUEZ D 03/31 completed Not Available Not Available Not Available azithromy milton 250 mg tablet 1 tab daily 08/19 completed Not Available Not Available Not Available glyburide 5 mg tablet Take 3 tablet by mouth once a day 11/06 completed Not Available Not Available Not Available ibuprofen 800 mg tablet TAKE ONE TABLET BY MOUTH EVERY 8 HOURS NEEDED 03/31 completed Not Available Not Available Not Available alprazola m 1 mg tablet 1/2 tablet PO QHS PRN 05/25 completed Not Available Not Available Not Available nystatin 100,000 unit/gram topical ointment APPLY TO AFFECTED AREA(S) TOPICALL Y TWO TIMES A DAY active Not Available Not Available No t Available fluconazo le 150 mg tablet Take 1 tablet by mouth every 72 hours 03/14 completed Not Available Not Available Not Available metoprolo l succinate ER 50 mg tablet,ex tended release 24 hr GIVE 1/2 TABLET VIA G-TUBE TWO TIMES A DAY active Not Available Not Available No t Available amoxicill in 250 mg-potass ium clavulana te 62.5 mg/5 mL oral suspensio n TAKE 10ML VIA FEEDING TUBE THREE TIMES A DAY FOR 3 DAYS - DISCARD ANY UNUSED PORTION 07/15 completed Not Available Not Available Not Available sucralfat e 1 gram tablet TAKE ONE TABLET BY VIA G-TUBE FOUR TIMES A DAY active Not Available Not Available No t Available Paxil 20 mg tablet 1 tab daily 03/18 completed Not Available Not Available Not Available ondansetr on HCl 4 mg tablet Take 1 tablet via g-tube every eight hours as needed 2023 active Not Available Not Available Not Avai lable prednison e 20 mg tablet TAKE ONE TABLET BY MOUTH EVERY DAY FOR 3 DAYS 03/31 completed Not Available Not Available Not Available Prilosec 20 mg capsule,d elayed release 1 qd 06/05 completed Not Available Not Available Not Available simvastat in 10 mg tablet 1 tab daily 06/19 completed Not Available Not Available Not Available olanzapin e 5 mg tablet Take 2 tablet by mouth every night 04/16 completed errol lackey, Not Available Not Available Not Available Lantus U-100 Insulin 100 unit/mL subcutane ous solution 10 units nightly 03/31 completed [facility] [place] Endocrin ology 10/2022 Not Available Not Available Not Available venlafaxi ne ER 150 mg capsule,e xtended release 24 hr Take 1capsule by mouth daily 06/19 completed Ayo hays Not Available Not Available Not Available oxycodone 5 mg/5 mL oral solution TAKE 2 & 1/2 TO 5ML VIA G-TUBE EVERY 6 HOURS NEEDED FOR PAIN 03/31 completed Not Available Not Available Not Available penicilli n V potassium 500 mg tablet 1 bid 06/15 completed Not Available Not Available Not Available olanzapin e 10 mg tablet 03/18 completed Not Available Not Available Not Available melatonin 3 mg tablet TAKE THREE TABLETS VIA G-TUBE EVERY NIGHT DIRECTED active Not Available Not Available No t Available valproic acid 250 mg capsule Take one daily at night (with Depakote ER 500 mg tablet) 06/12 completed Not Available Not Available Not Available ciproflox acin 500 mg tablet TAKE ONE TABLET BY MOUTH TWICE A DAY 12/02 completed Not Available Not Available Not Available olanzapin e 2.5 mg tablet take one tablet every am and one tab prn for mood cycling. 2019 active Not Available Not Available Not Avai lable omeprazol e 40 mg capsule,d elayed release 1 TAB QD 12/25 completed Not Available Not Available Not Available aspirin 81 mg tablet,de layed release TAKE ONE TABLET BY MOUTH TWICE A DAY FOR 30 DAYS 03/31 completed Not Available Not Available Not Available quetiapin e 100 mg tablet TAKE TWO TABLETS BY MOUTH EVERY EVENING active Not Available Not Available No t Available spironola ctone 25 mg tablet Take 1/2 tablet by mouth once a day 03/31 completed [facility] [place] D/C 09/25/22 Not Available Not Available Not Available lithium carbonate ER 450 mg tablet,ex tended release Take 1 daily 06/12 completed Not Available Not Available Not Available simvastat in 40 mg tablet Take 1 tab by mouth daily at bedtime 03/26 completed Not Available Not Available Not Available dexametha sone 0.5 mg/5 mL oral solution TAKE 4ML BY MOUTH ONCE DAILY FOR FIRST 2 DAYS POST-OPE RATIVELY 03/31 completed Not Available Not Available Not Available Glucotrol XL 5 mg tablet,ex tended release 1 TAB QAM 07/19 completed Not Available Not Available Not Available Aerochamb er MV spacer use with inhaler 09/17 completed Not Available Not Available Not Available Nicoderm CQ 7 mg/24 hr daily transderm al patch Apply to hairless area. Change every 24 hours. Use for 30 days 02/04 completed Not Available Not Available Not Available bupropion HCl 100 mg tablet TAKE 3 TABLETS VIA G-TUBE ONCE A DAY, TOTAL DOSE 300MG DAILY active Not Available Not Available No t Available lancets stick bid 02/19 completed Not Available Not Available Not Available amoxicill in 875 mg tablet take 1 tab by mouth twice daily 02/14 completed Not Available Not Available Not Available valproic acid (as sodium salt) 250 mg/5 mL oral solution TAKE 6ML VIA G-TUBE THREE TIMES A DAY active Not Available Not Available No t Available fluconazo le 10 mg/mL oral suspensio n TAKE 16MLS VIA G-TUBE ONCE THE REPEAT IN 3 DAYS IF NEEDED 07/29 completed Not Available Not Available Not Available [employer] Ultra Test strips TEST FOUR TIMES A DAY active Not Available Not Available No t Available Nicoderm CQ 14 mg/24 hr daily transderm al patch Apply to hairless area. Use for 30 days then decrease to 7 mgs. Change every 24 hours. 02/04 completed Not Available Not Available Not Available benzonata te 100 mg capsule TAKE ONE CAPSULE BY MOUTH THREE TIMES A DAY FOR COUGH 06/25 completed Not Available Not Available Not Available hydrocodo ne 7.5 mg-acetam inophen 325 mg tablet 1 tab twice daily for 10 days 11/22 completed Not Available Not Available Not Available pantopraz ole 40 mg tablet,de layed release Take 1 tablet by mouth twice a day as directed 09/29 completed Changed per [facility] d/c summary 07/19/21 Not Available Not Available Not Available metformin 1,000 mg tablet Take 1 tab by mouth twice daily 03/26 completed Not Available Not Available Not Available Norvasc 5 mg tablet 1 TAB daily 02/19 completed Not Available Not Available Not Available nystatin 100,000 unit/gram topical cream APPLY A SMALL AMOUNT TO AFFECTED AREA(S) ON BUTTOCKS THREE TIMES A DAY NEEDED 06/25 completed Not Available Not Available Not Available ferrous sulfate 300 mg (60 mg iron)/5 mL oral liquid TAKE 5ML VIA G-TUBE EVERY OTHER DAY active Not Available Not Available No t Available divalproe x ER 500 mg tablet,ex tended release 24 hr Take 1 tablet by mouth twice a day 04/20 completed Patient taking liquid Not Available Not Available Not Available lidocaine 5 % topical patch Apply 1 patch to skin once a day as needed On for 12 hours , off for 12 hours 03/31 completed Not Available Not Available Not Available nicotine 21 mg/24 hr daily transderm al patch Apply 1 patch to skin once a day Change every 24 hours. Do not smoke while wearing the patch. 03/14 completed Not Available Not Available Not Available Glucophag e XR 500 mg tablet,ex tended release 2 TABS BID 09/26 completed Not Available Not Available Not Available gabapenti n 300 mg capsule TAKE 3 CAPSULE VIA G-TUBE UP TO THREE TIMES A DAY 08/31 completed Not Available Not Available Not Available sertralin e 25 mg tablet Take 1 tablet daily fo 14 days 11/13 completed Not Available Not Available Not Available aspirin 81 mg chewable tablet TAKE 1 TABLET VIA FEEDING TUBE DAILY 08/31 completed Not Available Not Available Not Available folic acid 1 mg tablet TAKE ONE TABLET BY G-TUBE EVERY DAY active Not Available Not Available No t Available prednisol one 15 mg/5 mL oral solution TAKE 5ML VIA FEEDING TUBE DAILY FOR 5 DAYS 07/15 completed Not Available Not Available Not Available aspirin 81 mg tablet 1 tab daily 2013 active Not Available Not Available Not Avai lable lisinopri l 5 mg tablet Take 1 tablet by mouth once a day 05/01 completed Not Available Not Available Not Available Diabetic Tussin DM 10 mg-100 mg/5 mL oral liquid Take 10 mL every 4 hours by oral route as needed. 07/29 completed Not Available Not Available Not Available alprazola m 2 mg tablet Take 1 by mouth three times daily prn 03/28 completed Ayo hays Not Available Not Available Not Available ergocalci ferol (vitamin D2) 1,250 mcg (50,000 unit) capsule TAKE ONE CAPSULE BY MOUTH EVERY 14 DAYS active Not Available Not Available No t Available nystatin 100,000 unit/gram topical powder APPLY TO BUTTOCKS THREE TIMES A DAY NEEDED active Not Available Not Available No t Available Cheratuss in AC 10 mg-100 mg/5 mL oral liquid TAKE 5-10ML by mouth four times daily NEEDED FOR COUGH 09/17 completed Not Available Not Available Not Available Premarin 0.625 mg tablet 2GM PV 2x/week 09/26 completed Not Available Not Available Not Available ibuprofen 100 mg/5 mL oral suspensio n TAKE 30ML BY MOUTH EVERY 8 HOURS 06/25 completed Not Available Not Available Not Available paroxetin e 40 mg tablet Take 1/2 tabs by mouth daily. 05/09 completed Not Available Not Available Not Available fluconazo le 40 mg/mL oral suspensio n Administ er 4 mL via JG Tube once and then repeat in 3 days if needed. 07/29 completed Not Available Not Available Not Available glyburide 1.25 mg tablet Take 1 tab by mouth twice daily 02/02 completed Not Available Not Available Not Available sertralin e 50 mg tablet Take 1 tablet by mouth once a day 03/14 completed Not Available Not Available Not Available Depakote 250 mg tablet,de layed release 1 tab a day in addition to 1000mg 2019 active increa se in dose. Not Available Not Available Not Available amoxicill in 875 mg-potass ium clavulana te 125 mg tablet Take 1 tab by mouth twice daily. 07/15 completed Not Available Not Available Not Available Ventolin HFA 90 mcg/actua tion aerosol inhaler INHALE 2 PUFFS BY MOUTH EVERY 4 TO 6 HOURS NEEDED active Not Available Not Available No t Available oxycodone 5 mg tablet TAKE ONE TABLET BY MOUTH EVERY 6 HOURS NEEDED 03/31 completed Not Available Not Available Not Available ergocalci ferol (vitamin D2) 200 mcg/mL (8,000 unit/mL) oral drops TAKE 6.25MLS BY MOUTH ONCE EVERY 14 DAYS active Not Available Not Available No t Available trimethob enzamide 300 mg capsule Take 1 capsule by mouth every six hours as needed For nausea 02/24 completed Per [facility] d/c summary 07/19/21 Not Available Not Available Not Available Estrace 0.01% (0.1 mg/gram) vaginal cream 1APP PV QD 08/01 completed Not Available Not Available Not Available Antifunga l (miconazo le) 2 % topical cream Use twice daily over effected areas EXTERNAL LY for 7 days. 07/11 completed Not Available Not Available Not Available divalproe x ER 250 mg tablet,ex tended release 24 hr TAKE ONE TABLET BY MOUTH EVERY DAY DIRECTED 04/20 completed Patient taking liquid Not Available Not Available Not Available Novolog FlexPen U-100 Insulin aspart 100 unit/mL (3 mL) subcutane ous Inject 1 unit subcutan eously twice a day as directed Inject 2 units for BG 151-250, 3 units for BG 251-300, 4 units for BG 301-350 03/31 completed Not Available Not Available Not Available metoprolo l tartrate 25 mg tablet TAKE 25 MG (1 TABLET) VIA NASOGAST ATTILA TUBE TWO TIMES A DAY 05/13 completed Not Available Not Available Not Available zinc oxide 10 % topical cream Apply a thin stone layer to 4 times a day as needed. 06/25 completed Not Available Not Available Not Available duloxetin e 20 mg capsule,d elayed release TAKE TWO CAPSULES DAILY VIA G-TUBE 12/02 completed Not Available Not Available Not Available duloxetin e 60 mg capsule,d elayed release TAKE ONE CAPSULE VIA G-TUBE ONCE DAILY active Not Available Not Available No t Available gabapenti n 300 mg tablet 1 tab at bedtime 02/19 completed Not Available Not Available Not Available Albuterol Sulfate HFA 90 mcg/Actua tion aerosol inhaler 2INH every 4-6 hours 03/20 completed Not Available Not Available Not Available chlorhexi dine gluconate 0.12 % mouthwash 06/28 completed Not Available Not Available Not Available Robitussi n A-C 5ml qhs 07/19 completed Not Available Not Available Not Available Albuterol Sulfate HFA 2 puffs q6h 09/26 completed Not Available Not Available Not Available BD Ultra-Fin e Short Pen Needle 31 gauge x 5/16 Use 1 needle subcutan eously once a day 09/01 completed Not Available Not Available Not Available Chantix 0.5 mg tablet 05/28 completed Not Available Not Available Not Available OneTouch UltraMini kit Use 1 kit as directed four times a day as directed E11.2 2020 active Not Available Not Available Not Avai lable quetiapin e 50 mg tablet Take 1 tablet by mouth QHS, may increase to 2-3 tabs prn decrease d need for sleep. 11/01 completed INCREASE w/ dose fo rPRN manic sx. Not Available Not Available Not Available Januvia 50 mg tablet Take 1 by mouth daily. 12/13 completed Not Available Not Available Not Available NAC 600 mg capsule Take 2 capsule by mouth twice a day TAKE 2 CAPSULES BY MOUTH EVERY MORNING AND TAKE 2 CAPSULES BY MOUTH IN THE AFTERNOO N as needed for mood 11/06 completed Not Available Not Available Not Available Lantus Solostar U-100 Insulin 100 unit/mL (3 mL) subcutane ous pen INJECT 10 UNITS UNDER THE SKIN NIGHTLY DIRECTED active Not Available Not Available No t Available pantopraz ole DR 40 mg granules delayed-r elease for susp in packet DISSOLVE ONE PACKET DIRECTED AND TAKE VIA G-TUBE TWO TIMES A DAY; ADMINIST ER IN 10ML OF APPLE JUICE THEN FOLLOW WITH ANOTHER 10ML active Not Available Not Available No t Available Mapap (acetamin ophen) 500 mg/15 mL oral liquid GIVE 30ML VIA G-TUBE EVERY 8 HOURS NEEDED active Not Available Not Available No t Available acetamino phen 160 mg/5 mL (5 mL) oral suspensio n 1000mg in the AM and 1000mg at HS 04/14 completed [facility] [place] D/C 09/25/22 Not Available Not Available Not Available Calmosept ine 0.44 %-20.6 % topical ointment 05/13 completed Not Available Not Available Not Available Desitin 40 % topical paste APPLY A THIN LAYER TO THE BUTTOCKS TWO TIMES A DAY active Not Available Not Available No t Available [facility] Acetamino phen 160 mg/5 mL oral suspensio n TAKE 30ML BY MOUTH TWO TIMES A DAY 06/30 completed this was sent in error Not Available Not Available Not Available Chantix Continuin g Month Box 1 mg tablet Take 1 tablet by mouth twice a day 11/15 completed Not Available Not Available Not Available Chantix Starting Month Box 0.5 mg (11)-1 mg (42) tablets in dose pack Take 1 tablet by mouth as directed Days 1 to 3: 0.5 mg once daily. Days 4 to 7: 0.5 mg twice daily. Maintena nce (day 8 and later): 1 mg twice daily; 03/14 completed Not Available Not Available Not Available valproic acid (as sodium salt) 250 mg/5 mL (5 mL) oral solution 6 mL three times daily 05/13 completed [facility] [place] D/C 09/25/22 Not Available Not Available Not Available Vicodin 5 mg-300 mg tablet 1TAB q6h 11/12 completed Medicati onName: 'VICODIN 5/325 mg'; Not Available Not Available Not Available Tanzeum 30 mg/0.5 mL subcutane ous pen injector 06/19 completed Not Available Not Available Not Available Bydureon 2 mg/0.65 mL subcutane ous pen injector Administ er 2 mg by subcutan ous injectio n once a week. 01/11 completed Not Available Not Available Not Available Jardiance 10 mg tablet TAKE ONE TABLET BY MOUTH EVERY DAY active Not Available Not Available No t Available Trulicity 0.75 mg/0.5 mL subcutane ous pen injector Inject 0.75 mg subcutan eously once weekly 05/25 completed Not Available Not Available Not Available Entresto 24 mg-26 mg tablet TAKE ONE TABLET VIA G-TUBE TWO TIMES A DAY active Not Available Not Available No t Available metoprolo l succinate ER 50 mg capsule sprinkle, ext. release 24 hr Take 1 capsule by mouth once a day 03/31 completed [facility] [place] D/C 09/25/22 Not Available Not Available Not Available Novolin N FlexPen 100 unit/mL (3 mL) subcutane ous insulin pen INJECT 20 UNITS UNDER THE SKIN AT THE START OF THE FEED AND 20 UNITS 6 HOURS INTO YOUR FEED active Not Available Not Available No t Available Novolin R FlexPen 20 units prior to tube feed at 1pm, and then sliding scale after feeding. 07/29 completed Not Available Not Available Not Available Weekly-D 1,250 mcg (50,000 unit) capsule Take one capsule by mouth weekly. 01/11 completed Not Available Not Available Not Available Vitals Date Recorded Body height Body temperature Oxygen saturation Oxygen saturation in Arterial blood by Pulse oximetry Heart rate Body mass index (BMI) Body weight Systolic blood pressure Diastolic blood pressure Provider Name and Address Organization Details Last Updated DateTime 4 154.94 cm 98 [degF] 96 % 96 % 90 /min 28.9 kg/m2 21477.6 3 g 110 mm[Hg] 68 mm[Hg] Prachi Blancas RN [facility] 4 09:54:18 Date Recorded Body height Body mass index (BMI) Body weight Body temperature Oxygen saturation Oxygen saturation in Arterial blood by Pulse oximetry Heart rate Systolic blood pressure Diastolic blood pressure Provider Name and Address Organization Details Last Updated DateTime 4 154.94 cm 28.3 kg/m2 31305.1 4 g 96.9 [degF] 99 % 99 % 69 /min 90 mm[Hg] 62 mm[Hg] Prachi Blancas RN [facility] 4 09:02:42 Date Recorded Body height Body temperature Oxygen saturation Oxygen saturation in Arterial blood by Pulse oximetry Heart rate Body mass index (BMI) Body weight Systolic blood pressure Diastolic blood pressure Provider Name and Address Organization Details Last Updated DateTime 4 154.94 cm 96.6 [degF] 96 % 96 % 57 /min 28.4 kg/m2 38415.5 7 g 102 mm[Hg] 60 mm[Hg] Prachi Blancas RN [facility] 4 10:51:36 Date Recorded Body height Body mass index (BMI) Body weight Body temperature Oxygen saturation Oxygen saturation in Arterial blood by Pulse oximetry Heart rate Systolic blood pressure Diastolic blood pressure Provider Name and Address Organization Details Last Updated DateTime 4 154.94 cm 26.9 kg/m2 39364.5 5 g 96.3 [degF] 99 % 99 % 61 /min 110 mm[Hg] 62 mm[Hg] Prachi Blancas RN [facility] 4 10:54:49 Date Recorded Body height Body mass index (BMI) Body weight Body temperature Oxygen saturation Oxygen saturation in Arterial blood by Pulse oximetry Heart rate Systolic blood pressure Diastolic blood pressure Provider Name and Address Organization Details Last Updated DateTime 4 154.94 cm 26.5 kg/m2 56093.6 5 g 97.3 [degF] 99 % 99 % 54 /min 112 mm[Hg] 64 mm[Hg] Prachi Blancas RN [facility] 4 11:11:58 Social History Question Answer Notes LastModified by Organizat ion Details LastModified Time Tobacco Smoking Status Former Smoker ESTHER YANG RN [facility], [facility] 05/13/2023 11:38:26 When Did You Quit Smoking? 1-5yearssin celastcigar ette Information not available 05/13/2023 Date Care Plan Printed: 11/18/2023 Information not available 11/18/2023 Assigned Bioprocess Engineer: Aggie [email or web address] Information not available 11/18/2023 Is [facility] The Lead Bioprocess Engineer? Yes Information not available 11/18/2023 Level Of Intensity: Bi-Annually And As Needed. Will Call Me Information not available 11/18/2023 Team Based Care: No Information not available 11/18/2023 Social Barrier Yes Informatio n not available 11/18/2023 Other Barriers To Care (See Note) Yes Pt Has Anxiety And Depression Which Worsens At Times Information not available 11/18/2023 Financial Barrier Yes Information not available 11/18/2023 Community Software Quality Automation Engineer Yes Information not available 11/18/2023 Diabetes Education Yes Information not available 11/18/2023 Insurance Enrollment Yes Disability Information not available 11/18/2023 Physical Activity Programs Yes Has Gone To PT Information not available 11/18/2023 Social Security/Disabi lity Yes Information not available 11/18/2023 Chronic Disease Management Yes Information not available 11/18/2023 Diabetes Self Management Program Yes Information not available 11/18/2023 Diabetes Support Group Yes Information not available 11/18/2023 Home Health Agency Yes Information not available 11/18/2023 Providers Yes Information no t available 11/18/2023 Other Support System Yes Her Is Very Supportive And A Great Advocate Information not available 11/18/2023 What Was The Date Of Your Most Recent Tobacco Screening? 03/31/2023 Information not available 03/31/2023 Has Tobacco Cessation Counseling Been Provided? Yes Information not available 03/31/2023 On What Date Was Tobacco Cessation Counseling Provided? 03/31/2023 Information not available 03/31/2023 Do You Or Have You Ever Used Any Other Forms Of Tobacco Or Nicotine? No Information not available 03/31/2023 Sex: Female Functional Status None recorded. Mental Status None recorded. Family History Relationship Description Onset Age of this Age Resolved Age Notes Notes:*Problem: Mother: rasheed donahue , AlzheimersNo Heart Disease, DM, or Cancer. Father: age 69 cause of internal bleeding - ? aneurysm. [place] age 60s, HTN, hyperlipidemia Had late onset AODM. ETOH. Sisters: One younger, healthy RA Brothers: none Children: one biological- obese, mental health, and one step son. Family History of: Hypertension: Yes Hyperlipidemia: Yes Coronary heart disease: Yes Diabetes mellitus: yes Breast cancer: no Colorectal cancer: no Prostate cancer: Yes Cervical cancer: Yes Alcoholism: yes Dad Mental illness: Yes Other: PGM of aneurysm. Pat aunt and PGF of brain cancer. Medical History No medical history recorded. Gynecological History Statement/Question Response Date of Last Colonoscopy 06/11/2021 Most Recent Mammogram 04/23/2023 Most Recent Bone Density 12/17/2022 Obstetrics History GPAL:G 0 P 0 0 0 0 Immunizations Vaccine Type Date Status Provider Name and Address Organization Details Recorded Time Td (adult), 2 Lf tetanus toxoid, preservative free, adsorbed 07/12/2019 completed Not Available [facility] 03/19/2023 06:16:19 Tdap 01/09/2009 completed Not Available [facility] 06:16:20 Influenza, split virus, trivalent, preservative 01/31/2015 completed Not Available [facility] 03/19/2023 06:16:20 Influenza, split virus, trivalent, preservative 03/26/2016 completed Not Available [facility] 03/19/2023 06:16:20 Influenza, split virus, quadrivalent, PF 05/15/2019 completed Not Available [facility] 03/19/2023 06:16:20 Influenza, split virus, quadrivalent, PF 01/12/2020 completed Not Available [facility] 03/19/2023 06:16:20 Influenza, split virus, quadrivalent, PF 02/24/2022 completed Not Available [facility] 03/19/2023 06:16:20 Influenza, split virus, quadrivalent, PF 03/14/2021 completed Not Available [facility] 03/19/2023 06:16:20 Influenza, split virus, quadrivalent, preservative 02/04/2017 completed Not Available [facility] 03/19/2023 06:16:20 zoster recombinant 07/03/[address] [facility] 03/19/2023 06:16:20 zoster recombinant 11/06/[address] [facility] 03/19/2023 06:16:20 COVID-19, mRNA, LNP-S, PF, 100 mcg/0.5mL dose or 50 mcg/0.25mL dose 07/18/2020 completed Not Available [facility] 03/19/2023 06:16:21 COVID-19, mRNA, LNP-S, PF, 100 mcg/0.5mL dose or 50 mcg/0.25mL dose 08/15/2020 completed Not Available [facility] 03/19/2023 06:16:21 COVID-19, mRNA, LNP-S, PF, 100 mcg/0.5mL dose or 50 mcg/0.25mL dose 11/06/2021 completed Not Available [facility] 03/19/2023 06:16:21 COVID-19, mRNA, LNP-S, PF, 100 mcg/0.5mL dose or 50 mcg/0.25mL dose 03/14/2021 completed Not Available [facility] 03/19/2023 06:16:21 Pneumococcal conjugate PCV20, polysaccharide VCU226 conjugate, adjuvant, PF 02/24/2022 completed Not Available [facility] 03/19/2023 06:16:21 COVID-19, mRNA, LNP-S, bivalent, PF, 30 mcg/0.3 mL dose 02/24/2022 completed Not Available [facility] 03/19/20 06:16:21 pneumococcal polysaccharide PPV23 01/09/2009 completed Not Available [facility] 2022 06:16:21 Influenza, split virus, quadrivalent, PF 02/24/2023 completed Not Available [facility] 05/21/2023 05:31:34 COVID-19, mRNA, LNP-S, PF, daniela-sucrose, 30 mcg/0.3 mL 02/24/2023 completed Not Available [facility] 05/21/2023 05:31:35 Past Encounters Encounter ID Performer Location Encounter Start Date Encounter Closed Date Diagnosis/Indication Diagnosis SNOMED-CT Code [id number] CHRIS STANLEY [address] [address] 03/31/2023 13:52:55 03/31/2023 14:48:07 Hyperglycemia due to type 2 diabetes mellitus [id number] Senile osteoporosis 1804 0001 History of heart failure 238774280 History of hematuria 161 556747 Hearing loss 02348641 Cough 93658275 [id number] CHRIS STALNEY [address] [address] 05/13/2023 11:24:56 05/13/2023 12:21:08 Bipolar disorder 70457869 Stricture of esophagus 73901801 [id number] CHRIS STANLEY [employer] [address] [address] 05/21/2023 11:10:39 05/21/2023 14:11:27 Skin lesion 94836473 Candidiasis of skin 4988 3006 Hypoxia 469869710 Muscle weakness 40832490 History of cardiomyopathy 476056239534306 Stricture of esophagus 94055451 [id number] CHRIS STANLEY [address] [address] 05/25/2023 09:23:39 05/25/2023 10:42:06 Candidiasis of skin 02263679 Farrell's esophagus 3029 35356 [id number] Prachi Blancas RN [address] [address] 06/25/2023 09:34:23 06/25/2023 10:46:13 Aspiration pneumonia 951315734 Upper resp iratory infection 90553550 [id number] CHRIS STANLEY [address] [address] 06/30/2023 09:21:07 06/30/2023 10:45:05 Hip pain 57670131 Aspiration pneumonia 422 447904 Candidiasis of skin 4988 3006 [id number] CHRIS STANLEY [address] [address] 07/16/2023 08:26:14 07/16/2023 10:18:19 Pressure injury of buttock 087138109 Candidiasis of vagina 72 669876 [id number] CHRIS STANLEY [address] [address] 07/30/2023 10:18:16 07/30/2023 11:16:51 Polyneuropathy 56941665 Hyperglyce contreras due to type 2 diabetes mellitus 234982806837971 [id number] CHRIS STANLEY [address] [address] 09/01/2023 10:33:38 09/01/2023 11:21:31 Stricture of esophagus 21614044 History of cardiomyopathy 891692501168221 Polyneuropathy 74356098 [id number] MARIZA VERGE [address] [address] 12/03/2023 10:35:02 12/03/2023 11:43:48 Hyperglycemia due to type 2 diabetes mellitus 451435882264345 Pruritus of vagina 59558 003 Goals Section Goal Description Status Start Date LastModified by Organization Details LastModified Time Pt's Polyneuropathy will show improvement. None Recorded Goal not achieved AGGIE PUGA Information not available 11/18/2023 15:22:57 Pt's quality of life will improve. None Recorded Goal not achieved 024 AGGIE PUGA Information not available 11/18/2023 15:27:32 Health Concerns Section Related Observation LastModified by Organization Detai ls LastModified Time None Recorded Concern Status LastModified by Organization Details LastModified Time None Recorded Advance Directives Directive None Recorded Payers Encounter Date Sequence Insurance Name Policy Number Policy [place] Covered Member ID Camargo Member ID Guarantor Name 06/30/2023 1 [employer] ([employer]ICAID) Jennifer Orlando Irving [id number] Jennifer Antonette Irving 07/16/2023 1 [employer] ([employer]ICA[employer]) Jennifer Orlando Irving [id number] Jennifer Liuson 07/30/2023 1 [employer] ([employer]) Jennifer Orlando Irving [id number] Jennifer Liuson 09/01/2023 1 [employer] ([employer]ICA[employer]) Jennifer M Irving [id number] Jennifer Irving Notes Date Note Type Note Provider Name and Address Organization Details Recorded Time 06/30/2023 text/html HPI Notes: Jamaal oh is here to follow-up regarding recent respiratory illness. She reports that she is feeling better and stronger. She is using her nebulizer less. She has been wearing her oxygen some during the day. She normally only wears at night. [address], [place], [address], [facility]. 07/01/2023 07:32:33 07/16/2023 text/html HPI Notes: Alber mejia hospitalized with pneumonia. She has no respiratory concerns today. She is most concerned with vaginal itching. She denies dysuria or vaginal discharge. She believes she has a yeast infection. She is also concerned that she has skin breakdown that occured while in the hospital on her buttocks. [address], [place], [address], [facility]. 07/16/2023 15:31:21 07/30/2023 text/html HPI Notes: Sherry nt would like to discuss transitioning off of gabapentin and onto Cymbalta. She finds gabapentin to be minimally effective for lower extremity neuropathy and finds it to be sedating. She is hoping that the Cymbalta would help with neuropathy and also help with her mood. [address], [place], [address], [facility]. 07/30/2023 12:20:23 09/01/2023 text/html HPI Notes: Has stopped the gabapentin. Has been taking duloxetine at 40 mg daily. Has some lingering neuropathic pain in her bilateral feet. She is wondering about increasing duloxetine to 60 mg daily. She has had no side effects from medication. Recently she and her partner have transitioned from her Having her tube feeds and staying in bed for hours to using a pump in a backpack. This has been significantly beneficial to quality of life. She is scheduled tomorrow for endoscopy for stricture of esophagus. [address], [place], [address], [facility]. 09/01/2023 11:42:46 OBGyn Episode No OBEpisode recorded.
--- OUTSIDE RECORDS SUMMARY | 2023-12-03 14:53 | XMS_ITS | Encounter Summary ---
Author Organization [facility] [place] [address] Care Team Providers Care Ambulatory Care Coordinator Name Role Phone Ana Gillespie APRN Primary Care Provider [phone] Encounter Details Date Type Department Care Team (Late Contact Info) Description 11/05/2023 Orders [place] [phone] David Dejesus MD [facility] [place] [place] [address] Peptic stricture of esophagus Social History Tobacco Use Types Packs/Day Years [...] Encounters Date Type Department Care Team (Late Contact Info) Description 12/07/2023 1:00 PM EDT [place]ointment [place] [phone] 12/07/2023 2:00 PM EDT Office [place] [address] Geronimo Mojica MD [facility] [place] [address] 12/27/2023 11:30 AM EDT Office [place] [address] Noe Cuenca MD [facility] [place] [address] Scheduled Orders Name Type Priority Associated Diagnoses Orde r Schedule ENDOSCOPY CASE REQUEST: EGD, UPPER GI ENDOSCOPY (WRVU 2.09) Procedures Routine Peptic stricture of esophagus Ordered: 11/05/2023 Scheduled Procedures Name Priority Associated Diagnoses Date/Ti me EGD, UPPER GI ENDOSCOPY (WRV U 2.09) Peptic stricture of esophagus documented as of this encounter Visit Diagnoses Diagnosis Peptic stricture of esophagus Stricture and stenosis of esophagus documented in this encounter Care Teams Ambulatory Care Coordinator Relationship Specialty Start Date End Date Ana Gillespie APRN [address] [place] [address] PCP - General Family Medicine 02/03/19 documented as of this encounter
--- OUTSIDE RECORDS SUMMARY | 2023-12-03 14:53 | XMS_ITS | Encounter Summary ---
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 Procedures IR Site Check In Recovery Room Hang Cooper PA [facility] [place] [address] [facility] [place] [address] Referral ID Status Reason Start Date Expiration Date V isits Requested Visits Authorized [id number] Closed Specialty Service Requested 09/20/2023 03/22/2025 1 1 Encounter Details Date Type Department Care Team (Late st Contact Info) Description 09/20/2023 [place] [address] Hang Cooper PA [facility] DR [place] [address] Social History Tobacco Use Types Packs/Day Years [...] 12/07/2023 1:00 PM EDT [place] [address] 12/07/2023 2:00 PM EDT Office [place] [address] Geronimo Mojica MD [facility] [place] [address] 12/27/2023 11:30 AM EDT [place] [phone] Noe Cuenca MD [facility] [place] [address] Scheduled Orders Name Type Priority Associated Diagnoses Orde r Schedule IR Site Check In Recovery Room Imaging Routine Problem with gastrostomy tube 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 Expected: 09/20/2023, Expires: 10/21/2023 Scheduled Procedures Name Priority Associated Diagnoses Date/Ti me EGD, UPPER GI ENDOSCOPY (WRV U 2.09) Peptic stricture of esophagus documented as of this encounter Visit Diagnoses Diagnosis Problem with gastrostomy tube 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
--- OUTSIDE RECORDS SUMMARY | 2023-12-03 14:53 | XMS_ITS | Encounter Summary ---
Author Organization [facility] Address [facility] [place] [address] Care Team Providers Care Pipeliner Name Role Phone Ana Gillespie VAUGHN Primary Care Provider [phone] Encounter Details Date Type Department Care Team (Latest Contact Info) Description 10/07/2023 9:20 AM EDT - 10/07/2023 12:03 PM EDT Hospital Encounter [place] [address] David Dejesus MD [facility] [place] [address] Discharge Disposition: Home Social History Tobacco Use Types Packs/Day Years [...] Sign Reading Time Taken Comments Blood Pressure 148/72 10/07/2023 11:40 AM EDT Pulse 60 10/07/2023 10:24 AM EDT Temperature - - Respiratory Rate 15 10/07/2023 11:40 AM EDT Oxygen Saturation 100% 10/07/2023 11:40 AM EDT Inhaled Oxygen Concentration - - Weight - - Height - - Body Mass Index - - documented in this encounter Discharge Instructions * Discharge Instructions* Parris Quinn RN - 10/07/2023 11:27 AM EDT Upper GI Endoscopy: What to Expect at Home Your Recovery You will be able to go home after your doctor or nurse checks to make sure you are not having any problems. You may have to stay overnight if you had treatment during the test. You may have a sore throat fora day or two after the test. This care sheet gives you a general idea about what to expect after the test. How can you care for yourself at home? Activity Rest when you feel tired. You can do your normal activities when it feels okay to do so. Diet Follow your doctor's directions for eating. Unless your doctor has told you not to, drink plenty of fluids. This helps to replace the fluids that were lost during the prep. Do not drink alcohol. Medicines Your doctor will tell you if and when you can restart your medicines. He or she will also give you instructions about taking any new medicines. If you take blood thinners, such as warfarin (Coumadin), clopidogrel (Plavix), or aspirin, be sure to talk to your doctor. He or she will tell you if and when to start taking those medicines again. Make sure that you understand exactly what your doctor wants you to do. If polyps were removed or a biopsy was done during the test, your doctor may tell you not to take aspirin or other anti-inflammatory medicines for a few days. These include ibuprofen (Advil, Motrin) and naproxen (Aleve). If you have a sore throat the day after the procedure, use an tmwh-ivq-dpfizfy spray to numb your throat. Sucking on throat lozenges and gargling with warm salt water may also help relieve your symptoms. Other instructions For your safety, do not drive or operate machinery until the medicine wears off and you can think clearly. Your doctor may tell you not to drive or operate machinery until the day after your test. Do not sign legal documents or make major decisions until the medicine wears off and you can think clearly. The anesthesia can make it hard for you to fully understand what you are agreeing to. Additional Information for Sedation Patients For patients who received sedation: You may have received medications before and/or during your procedure which effects your judgement and reaction time. Do not drive, operate machinery, drink alcoholic beverages or make important decisions for 24 hours. Be careful on stairs as you may be unsteady on your feet. You may eat a regular diet as tolerated. Do not smoke if you are alone. IV site: Slight redness or tenderness is normal, you can use a warm compress if you would like. If tenderness and/or redness increase or if foul drainage occurs, please contact your Doctor. Please call [phone] before 8pm Mon-Fri with problems, questions or concerns. If you call after 8pm or on weekends, call the Hospital at [phone] and ask to speak to the Remote Control Mirror Installer instrumentation chemist and the carbon blocks press operator will contact that person for you. When should you call for help? Call [phone] anytime you think you may need emergency care. For example, call if: You passed out (lost consciousness). You pass maroon or bloody stools. You have trouble breathing. Call your doctor now or seek immediate medical care if: You have pain that does not get better after you take pain medicine. You are sick to your stomach or cannot drink fluids. You have new or worse belly pain. You have blood in your stools. You have a fever. You cannot pass stools or gas. Watch closely for changes in your health, and be sure to contact your doctor if you have any problems. Where can you learn more? [facility] View your After Visit Summary and more online at [email or web address] If you would like to provide feedback about your hospital experience, please call the Office of Patient and Family Relations at . If you have received this After Visit Summary in error, please immediately return it in person to the department, or notify the [facility] Privacy Office by calling toll free at between the hours of 8AM and 5PM to arrange for our retrieval of the documents at no cost to you. Content Version: 12.2 ?? 4428-6972 [employer]. Care instructions adapted under license by [facility]. If you have questions about a medical condition or this instruction, always ask your healthcare professional. [employer] disclaims any warranty or liability for your use of this information.Upper GI Endoscopy: What to Expect at Home Your Recovery You will be able to go home after your doctor or nurse checks to make sure you are not having any problems. You may have to stay overnight if you had treatment during the test. You may have a sore throat fora day or two after the test. This care sheet gives you a general idea about what to expect after the test. How can you care for yourself at home? Activity Rest when you feel tired. You can do your normal activities when it feels okay to do so. Diet Follow your doctor's directions for eating. Unless your doctor has told you not to, drink plenty of fluids. This helps to replace the fluids that were lost during the prep. Do not drink alcohol. Medicines Your doctor will tell you if and when you can restart your medicines. He or she will also give you instructions about taking any new medicines. If you take blood thinners, such as warfarin (Coumadin), clopidogrel (Plavix), or aspirin, be sure to talk to your doctor. He or she will tell you if and when to start taking those medicines again. Make sure that you understand exactly what your doctor wants you to do. If polyps were removed or a biopsy was done during the test, your doctor may tell you not to take aspirin or other anti-inflammatory medicines for a few days. These include ibuprofen (Advil, Motrin) and naproxen (Aleve). If you have a sore throat the day after the procedure, use an ywll-hqq-dndpswc spray to numb your throat. Sucking on throat lozenges and gargling with warm salt water may also help relieve your symptoms. Other instructions For your safety, do not drive or operate machinery until the medicine wears off and you can think clearly. Your doctor may tell you not to drive or operate machinery until the day after your test. Do not sign legal documents or make major decisions until the medicine wears off and you can think clearly. The anesthesia can make it hard for you to fully understand what you are agreeing to. Additional Information for Sedation Patients For patients who received sedation: You may have received medications before and/or during your procedure which effects your judgement and reaction time. Do not drive, operate machinery, drink alcoholic beverages or make important decisions for 24 hours. Be careful on stairs as you may be unsteady on your feet. You may eat a regular diet as tolerated. Do not smoke if you are alone. IV site: Slight redness or tenderness is normal, you can use a warm compress if you would like. If tenderness and/or redness increase or if foul drainage occurs, please contact your Doctor. Please call [phone] before 8pm Mon-Fri with problems, questions or concerns. If you call after 8pm or on weekends, call the Hospital at [phone] and ask to speak to the Remote Control Mirror Installer instrumentation chemist and the carbon blocks press operator will contact that person for you. When should you call for help? Call 911 anytime you think you may need emergency care. For example, call if: You passed out (lost consciousness). You pass maroon or bloody stools. You have trouble breathing. Call your doctor now or seek immediate medical care if: You have pain that does not get better after you take pain medicine. You are sick to your stomach or cannot drink fluids. You have new or worse belly pain. You have blood in your stools. You have a fever. You cannot pass stools or gas. Watch closely for changes in your health, and be sure to contact your doctor if you have any problems. Where can you learn more? [facility] View your After Visit Summary and more online at [email or web address] If you would like to provide feedback about your hospital experience, please call the Office of Patient and Family Relations at . If you have received this After Visit Summary in error, please immediately return it in person to the department, or notify the [facility] Privacy Office by calling toll free at between the hours of 8AM and 5PM to arrange for our retrieval of the documents at no cost to you. Content Version: 12.2 ?? 7804-8361 [employer]. Care instructions adapted under license by [facility]. If you have questions about a medical condition or this instruction, always ask your healthcare professional. [employer] disclaims any warranty or liability for your use of this information. documented in this encounter Medications at Time of Discharge Medication Sig Dispensed Refills Start Date End Date ciprofloxacin (Cipro) 500 mg tablet Take 1 tablet by mouth 2 times daily. 6 tablet 10/07/2023 ciprofloxacin (Cipro) 500 mg tablet Take 1 tablet by mouth 2 times daily. 6 tablet 08/02/2023 sacubitriL-valsartan (Entresto) 24-26 mg tabletIndications:HFr EF (heart failure with reduced ejection fraction) 1 tablet by Per G Tube route 2 times daily. 60 tablet 4 07/12/2023 ciprofloxacin (Cipro) 500 mg tablet Take 1 tablet by mouth 2 times daily. 14 tablet 06/01/2023 Miscellaneous Medical Supply KitIndications:Primar y parkinsonism 1 Aluminum adjustable rolling walker 1 kit 05/25/2023 metoprolol succinate XL (Toprol-XL) 50 mg ER 24 hr tabletIndications:HFr EF (heart failure with reduced ejection fraction) Take 25 mg (1/2 tab) via g-tube bid. 30 tablet 12 03/04/2023 buPROPion XL (Wellbutrin XL) 300 mg XL 24 hr tablet 300 mg every morning. Via G-tube gabapentin (Neurontin) 300 mg capsule 900 mg by Per G Tube route 3 times daily. QUEtiapine (SEROquel) 100 mg tablet Take 100 mg by mouth daily. ondansetron (Zofran) 4 mg tablet Take 4 mg by mouth every 8 hours as needed for Nausea. insulin isophane- NPH 100 unit/mL (3 mL) Insulin Pen Administer 20 units at start of your feed and 20 units 6 hours into your feed 45 mL 3 12/08/2022 ergocalciferoL, vitamin D2, (vitamin D2) 50,000 unit capsule Take 1 capsule by mouth every 14 days. 6 capsule 3 11/18/2022 MELATONIN ORAL Take 9 mg by mouth nightly as needed. Via g tube acetaminophen (Tylenol) 160 mg/5 mL Liquid Take 15 mg/kg/dose by mouth every 4 hours as needed for Fever. 1000 mg bid sucralfate (Carafate) 1 gram tablet Take 1 tablet by mouth 4 times daily. 360 tablet 3 10/22/2022 insulin aspart U-100 (NovoLOG FlexPen U-100 Insulin) [...] >250 GIVE 6 units 12 mL 12 09/25/2022 atorvastatin (Lipitor) 80 mg tablet 1 tablet by Per G Tube route every evening. 90 tablet 3 09/24/2022 empagliflozin (Jardiance) 10 mg tablet Take 1 tablet by mouth daily. 90 tablet 3 09/25/2022 ferrous sulfate 300 mg (60 mg iron)/5 mL Liquid 5 mLs by Per G Tube route every other day. 150 mL 12 09/26/2022 folic acid (Vitamin B9) 1 mg tablet 1 tablet by Per G Tube route daily. 90 tablet 3 09/25/2022 insulin glargine-yfgn (Semglee) 100 unit/mL Solution Inject 10 Units subcutaneously nightly. 5 mL 09/24/2022 valproate (Depakene) 250 mg/5 mL (5 mL) Solution 6 mLs by Per G Tube route every 6 hours. 600 mL 3 09/24/2022 pantoprazole EC (Protonix) 40 mg Tablet, Delayed Release (E.C.)Indications:Gas troesophageal reflux disease with esophagitis without hemorrhage Take 1 tablet by mouth 2 times daily. 180 tablet 3 10/20/2021 Blood Sugar Diagnostic (ONETOUCH ULTRA TEST) StripIndications:Type 2 diabetes mellitus, uncontrolled 1 each by Other route 3 times daily. by Other route. 1 box = 100 test strips; 3 boxes = 300 test strips. 300 each 3 12/14/2014 lancets (ONE TOUCH DELICA) 33 gauge MiscIndications:Type 2 diabetes mellitus, uncontrolled 1 each by Other route 3 times daily. by Other route. 1 box = 100 test strips; 3 boxes = 300 test strips. 300 each 3 12/14/2014 Blood-Glucose Meter (ONETOUCH ULTRA2) KitIndications:Type 2 diabetes mellitus, uncontrolled by Other route. 1 = one blood glucose meter kit. 1 each 0 12/14/2014 Insulin [place], Disposable, (BD INSULIN PEN NEEDLE UF MINI) 31 x 07/23 NeedleIndications:Josefina betes mellitus type 2, uncontrolled 1 Device by [facility]Non-Drug; Combo Route) route 3 times daily as needed. 100 each 11 12/13/2014 documented as of this encounter H&P Notes * David Dejesus MD - 10/07/2023 10:31 AM EDT PROBLEM LIST Patient Active Problem List Diagnosis Code GERD (gastroesophageal reflux disease) K21.9 Farrell's esophagus K22.70 T2DM (type 2 diabetes mellitus) E11.9 BMI 37.0-37.9, adult Z68.37 Bipolar disorder F31.9 Neuroleptic-induced parkinsonism G21.11, T43.505A Stress-induced cardiomyopathy I51.81 HISTORY OF PRESENT ILLNESS Jennifer Irving is a 63 y.o. y/o who presents for EGD for esophageal dilation. MEDICATIONS No current facility-administered medications on file prior to encounter. Current Outpatient Medications on File Prior to Encounter Medication Sig Dispense Refill ciprofloxacin (Cipro) 500 mg tablet Take 1 tablet by mouth 2 times daily. 6 tablet 0 sacubitriL-valsartan (Entresto) 24-26 mg tablet 1 tablet by Per G Tube route 2 times daily. 60 tablet 4 ciprofloxacin (Cipro) 500 mg tablet Take 1 tablet by mouth 2 times daily. 14 tablet 0 Miscellaneous Medical Supply Kit 1 Aluminum adjustable rolling walker 1 kit 0 metoprolol succinate XL (Toprol-XL) 50 mg ER 24 hr tablet Take 25 mg (1/2 tab) via g-tube bid. 30 tablet 12 buPROPion XL (Wellbutrin XL) 300 mg XL 24 hr tablet 300 mg every morning. Via G-tube gabapentin (Neurontin) 300 mg capsule 900 mg by Per G Tube route 3 times daily. QUEtiapine (SEROquel) 100 mg tablet Take 100 [...] glucose meter kit. 1 each 0 Insulin [place], Disposable, (BD INSULIN PEN NEEDLE UF MINI) 31 x 3/16 Needle 1 Device by [facility]Non-Drug; Combo Route) route 3 times daily as needed. 100 each 11 PHYSICAL EXAM: Blood pressure (!) 78/54, pulse 60, SpO2 97%. GEN: Alert, cooperative. Pleasant. In NAD MP I ASA II HEENT: No oropharyngeal lesions. Neck supple. No masses. Thyroid symmetric LUNGS: CTAB CARD: RRR without m/g/r RECENT LABS No results found for this or any previous visit (from the past 24 hour(s)). ASSESSMENT AND PLAN Jennifer Irving is a 63 y.o. y/o who presents for endoscopic evaluation. Risks extensively discussed including bleeding, infection, reaction to anesthesia, perforation, and/or other unforseen complication. Consent signed and patient well informed of the risks of the procedure. documented in this encounter Plan of Treatment Upcoming Encounters Date Type Department Care Team (Late st Contact Info) Description 12/07/2023 1:00 PM EDT Appointment [place] [phone] 12/07/2023 2:00 PM EDT Office [place] [phone] Geronimo Mojica MD [facility] [place] [address] 12/27/2023 11:30 AM EDT Office [place] [address] Noe Cuenca MD [facility] [place] [address] Scheduled Procedures Name Priority Associated Diagnoses Date/Ti me EGD, UPPER GI ENDOSCOPY (WRV U 2.09) Peptic stricture of esophagus documented as of this encounter Procedures Procedure Name Priority Date/Time Associated Diagnosis Comments Up Gi Endoscopy, Nattyn W Guide ([id number]) 10/07/2023 10:44 AM EDT Peptic stricture of esophagus UPPER GI ENDOSCOPY Routine 10/07/2023 10 :34 AM EDT documented in this encounter Results * UPPER GI ENDOSCOPY (10/07/2023 10:34 AM EDT) UPPER GI ENDOSCOPY [facility] Endoscopy Procedure Date: 10/07/2023 10:34 AM ? Patient Name: Jennifer Irving ? Date of : 1960 ? Age: 63 ? Order #: [id number] ? Instrument Name: [id number] ? Procedure: ? Upper GI endoscopy Indications: ? Dysphagia Providers: ? David Dejesus MD, Brittany ? Donker, Mary Baldauf Referring MD: ? Medicines: ? General Anesthesia Complications: ? No immediate complications. Procedure: ? Pre-Anesthesia Assessment: ? - Prior to the procedure, a History ? and Physical was performed, and ? patient medications and allergies ? were reviewed. The patient is ? competent. The risks and benefits ? of the procedure and the sedation ? options and risks were discussed ? with the patient. All questions ? were answered and informed consent ? was obtained. Patient ? identification and proposed ? procedure were verified by the ? physician in the pre-procedure ? area. Mental Status Examination: ? alert and oriented. Airway ? Examination: normal oropharyngeal ? airway and neck mobility. ? Respiratory Examination: clear to ? auscultation. CV Examination: ? normal. Prophylactic Antibiotics: ? The patient does not require ? prophylactic antibiotics. Prior ? Anticoagulants: The patient has ? taken no anticoagulant or ? antiplatelet agents. ASA Grade ? Assessment: III - A patient with ? severe systemic disease. After ? reviewing the risks and benefits, ? the patient was deemed in ? satisfactory condition to undergo ? the procedure. The anesthesia plan ? was to use general anesthesia. ? Immediately prior to administration ? of medications, the patient was ? re-assessed for adequacy to receive ? sedatives. The heart rate, ? respiratory rate, oxygen ? saturations, blood pressure, ? adequacy of pulmonary ventilation, ? and response to care were monitored ? throughout the procedure. The ? physical status of the patient was ? re-assessed after the procedure. ? The procedure, indications, ? benefits, risks and alternatives ? were explained to the patient. ? Specifically discussed were ? potential complications including, ? but not limited to, bleeding, ? perforation, infection, missing a ? cancer, and adverse medication ? reactions. The Endoscope was ? introduced through the mouth, and ? advanced to the upper third of ? esophagus The upper GI endoscopy ? was accomplished without ? difficulty. The patient tolerated ? the procedure well. ? Findings: ? The patient's known stricture was visualized at 25 ? cm. We could not advance the scope through the ? stricture so a Savary wire was placed under direct ? visualization through the stricture. We then dilated ? serially from 6-7-8-9-10 mm. Following dilation to 10 ? mm we visualized a prominent rent proximally in the ? stricure and ceased further dilation. ? Moderate Sedation: ? Not applicable - See Anesthesia documentation Impression: ?- Esophageal stricture s/p Savary ? dilation to 10 mm Recommendation: ?- Repeat exam in 2-3 weeks ? - Cipro x 1 weeks ? Attending Participation: ? I personally performed the entire procedure. ? ___ David Dejesus MD 10/07/2023 11:23:46 AM This report has been signed electronically. Number of Addenda: 0 Note Initiated On: 10/07/2023 10:34 AM PROVATION 10/07/2023 10:3 4 AM EDT Unknown GENERAL SURGICAL ORD ERABLES PROVATION documented in this encounter Visit Diagnoses Not on filedocumented in this encounter Administered Medications Inactive Administered Medications - up to 3 most recent administrations Medication Order MAR Action Action Date Dose Rate Site lactated ringers infusion 100 mL/hr, Intravenous, CONTINUOUS, Starting on Betty 10/07/23 at 1100, Until Betty 10/07/23 at 1152, Endoscopy (Day of Procedure) New Bag 10/07/2023 11:00 AM EDT 100 mL/hr 100 mL/hr documented in this encounter Active and Recently Administered Medications Times are shown in EDT. Continuous Medication Order 10/05/2023 10/06/2023 10/07/2023 lactated ringers infusion (CANCELED) 100 mL/hr, Intravenous, CONTINUOUS, Starting on Betty 10/07/23 at 1100, Until Betty 10/07/23 at 1152, Endoscopy (Day of Procedure) 1100 (New Bag - Prov ider: Jennifer Garibay RN) documented in this encounter Care Teams Pipeliner Relationship Specialty Start Date End Date Ana Gillespie APRN [address] [place] [address] PCP - General Family Medicine 02/03/19 documented as of this encounter
--- OUTSIDE RECORDS SUMMARY | 2023-12-03 14:53 | XMS_ITS | Encounter Summary ---
Author Organization [facility] [place] [address] Care Team Providers Care Form Grader Operator Name Role Phone Ana Gillespie VAUGHN Primary Care Provider [phone] Reason for Referral * Diagnostic Test (Routine) - Closed Specialty Diagnoses / Procedures Referred By Esperanza rodríguez Referred To Contact Radiology Diagnoses Problem with gastrostomy tube Farrell's esophagus with high grade dysplasia Farrell's esophagus with low grade dysplasia Procedures IR G-Tube Check/Change Hang Cooper PA [facility] [place] [address] [facility] [place] [address] Referral ID Status Reason Start Date Expiration Date V isits Requested Visits Authorized [id number] Closed Specialty Service Requested 09/23/2023 03/25/2025 1 1 * Diagnostic Test (Routine) - Closed Specialty Diagnoses / Procedures Referred By Esperanza rodríguez Referred To Contact Radiology Diagnoses Problem with gastrostomy tube 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 Procedures IR Site Check In Recovery Room Hang Cooper PA [facility] [place] [address] [place] [address] Referral ID Status Reason Start Date Expiration Date V isits Requested Visits Authorized [id number] Closed Specialty Service Requested 09/20/2023 03/22/2025 1 1 Reason for Visit * Diagnostic Test (Routine) - Closed Specialty Diagnoses / Procedures Referred By Esperanza rodríguez Referred To Contact Radiology Diagnoses Problem with gastrostomy tube 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 Procedures IR Site Check In Recovery Room Hang Cooper PA [facility] [address] [place] [address] [facility] [place] [address] Referral ID Status Reason Start Date Expiration Date V isits Requested Visits Authorized [id number] Closed Specialty Service Requested 09/20/2023 03/22/2025 1 1 Encounter Details Date Type Department Care Team (Latest Contact Info) Description 09/23/2023 9:47 AM EDT - 09/23/2023 11:59 PM EDT Hospital [place] [address] Geronimo Chambers, [facility] [place] [address] Problem with gastrostomy tube; Neuroleptic-induced parkinsonism; Farrell's esophagus with high grade dysplasia; Farrell's esophagus with low grade dysplasia Discharge Disposition: Home Social History Tobacco Use [...] on file documented as of this encounter Medications at Time of Discharge [...] Inject 10 Units subcutaneously nightly. 5 mL 3 09/24/2022 valproate (Depakene) 250 mg/5 mL (5 [...] meter kit. 1 each 0 12/14/2014 Insulin Harriet, Disposable, (BD INSULIN PEN NEEDLE UF MINI) 31 x 07/23 NeedleIndications:Josefina betes mellitus type 2, uncontrolled 1 Device by [facility].(Non-Drug; Combo Route) route 3 times daily as needed. 100 each 11 12/13/2014 documented as of this encounter Progress Notes * Hang Cooper PA - 09/23/2023 12:56 PM EDT Interventional Radiology - Progress Note Patient Name: Jennifer Irving : 1960 MR#: [id number] Seen in IR recovery in followup to G-tube issues. Exchanged by IR on 09/16 due to occlusion. Patienttraveled to [place] where tube could not be flushed. Exchanged at outside institution for 16 F non-EnFit catheter that was sutured into place. Returns to IR today with pain and need for supplies for different style catheter. Site taken down. There was a 16 F catheter-tip style tube with retention disk sutured in place to the skin. Scant dried blood at the site. Balloon volume confirmed to be 5 mL. Sutures released. Site cleansed aseptically. Retention disk repositioned to 6 cm marker. Clean and dry dressing applied. EnFit adapters provided. Patient to return morning of 09/26 for conversion back to EnFit style catheter. All questions sought and addressed. Labs: Lab Results Component Value Date HGB 11.5 (L) 09/23/2022 HCT 38.4 09/23/2022 WBC 6.8 09/23/2022 PLATELET 222 09/23/2022 INR 2.0 08/15/2022 BUN 32 (H) 09/25/2022 CREATININE 0.62 (L) 09/25/2022 ALBUMIN 2.5 (L) 08/20/2022 BILIDIR 0.1 08/20/2022 BILITOT <0.2 (L) 08/20/2022 AST 39 (H) 08/20/2022 ALT 20 08/20/2022 ALKPHOS 213 (H) 08/20/2022 Allergies: Meperidine hcl and Metformin Medications: Current Outpatient Medications on File Prior to [...] daily. 180 tablet 3 Blood Sugar Diagnostic (DecisionDesk ULTRA TEST) Strip 1 each by Other [...] glucose meter kit. 1 each 0 Insulin Harriet, Disposable, (BD INSULIN PEN NEEDLE UF MINI) 31 x 3/16 Needle 1 Device by [facility].(Non-Drug; Combo Route) route 3 times daily as needed. 100 each 11 No current facility-administered medications on file prior to encounter. Past medical/surgical history: Patient Active Problem List Diagnosis Code GERD (gastroesophageal reflux disease) K21.9 Farrell's esophagus K22.70 T2DM (type 2 diabetes mellitus) E11.9 BMI 37.0-37.9, adult Z68.37 Bipolar disorder F31.9 Neuroleptic-induced parkinsonism G21.11, T43.505A Stress-induced cardiomyopathy I51.81 Past Medical History: Diagnosis Date Bipolar disorder 02/12/2022 Past Surgical History: Procedure Laterality Date IR G-TUBE CHECK/CHANGE 11/27/2022 IR G-Tube Check/Change 11/27/2022 Hang Cooper PA [facility] INTERVENTIONL RAD IR G-TUBE CHECK/CHANGE 03/10/2023 IR G-Tube Check/Change 03/10/2023 Geronimo Chambers, [facility] RAD IR G-TUBE CHECK/CHANGE 04/06/2023 IR G-Tube Check/Change 04/06/2023 Gavin Carrillo MD [facility] INTER[facility] RAD IR G-TUBE CHECK/CHANGE 05/09/2023 IR G-Tube Check/Change [facility] RAD IR G-TUBE CHECK/CHANGE 07/09/2023 IR G-Tube Check/Change [facility] RAD IR G-TUBE CHECK/CHANGE 09/17/2023 IR G-Tube Check/Change 09/17/2023 Hang Cooper PA [facility] RAD IR G-TUBE PLACEMENT 09/11/2022 IR G-Tube Placement 09/11/2022 Moustapha Hart MD [facility] INTERVENTIONL RAD IR SUTURE RELEASE 09/25/2022 IR Suture Release 09/25/2022 Yoselin Ghosh PA [facility] INTER[facility]ION[facility] RAD PERCUTANEOUS GASTROSTOMY N/A 09/11/2022 PERCUTANEOUS GASTROSTOMY performed by Aiden Flores MD at [facility] CATY PRO COLONOSCOPY, BIOPSY N/A 03/20/2016 COLONOSCOPY FLEXIBLE, WITH BX performed by David Dejesus MD at [facility] ENDOSCOPY PRO COLONOSCOPY, DIAGNOSTIC N/A 03/01/2020 COLONOSCOPY, DIAGNOSTIC performed by David Dejesus MD at [facility] ENDOSCOPY PRO ENDOSCOPIC US EXAM, ESOPH N/A 03/31/2022 UPPER EUS- ENDOSCOPIC ULTRASOUND performed by David Dejesus MD at [facility] ENDOSCOPY PRO UP GI ENDOSCOPY, BALL DIL, 30MM N/A 12/24/2022 EGD,WITH DILATION ESOPHAGUS WITH BALLOON,< 30 MM (WRVU 2.67) performed by David Dejesus [facility] ENDOSCOPY PRO UP GI ENDOSCOPY, BALL DIL, 30MM N/A 01/12/2023 EGD,WITH DILATION ESOPHAGUS WITH BALLOON,< 30 MM (WRVU 2.67) performed by David Dejesus [facility] ENDOSCOPY PRO UP GI ENDOSCOPY, BALL DIL, 30MM N/A 02/26/2023 EGD,WITH DILATION ESOPHAGUS WITH BALLOON,< 30 MM (WRVU 2.67) performed by David Dejesus [facility] ENDOSCOPY PRO UP GI ENDOSCOPY, BALL DIL, 30MM N/A 03/16/2023 EGD,WITH DILATION ESOPHAGUS WITH BALLOON,< 30 MM (WRVU 2.67) performed by David Dejesus [facility] ENDOSCOPY PRO UP GI ENDOSCOPY, BALL DIL, 30MM N/A 03/30/2023 EGD,WITH DILATION ESOPHAGUS WITH BALLOON,< 30 MM (WRVU 2.67) performed by David Dejesus [facility] ENDOSCOPY PRO UP GI ENDOSCOPY, BALL DIL, 30MM N/A 04/30/2023 EGD,WITH DILATION ESOPHAGUS WITH BALLOON,< 30 MM (WRVU 2.67) performed by David Dejesus [facility] ENDOSCOPY PRO UP GI ENDOSCOPY, BALL DIL, 30MM N/A 06/01/2023 EGD,WITH DILATION ESOPHAGUS WITH BALLOON,< 30 MM (WRVU 2.67) performed by David Dejesus MDat [facility] ENDOSCOPY PRO UP GI ENDOSCOPY, BALL DIL, 30MM N/A 08/02/2023 EGD,WITH DILATION ESOPHAGUS WITH BALLOON,< 30 MM (WRVU 2.67) performed by David Dejesus MDat [facility] ENDOSCOPY PRO UPPER GI ENDOSCOPY, BIOPSY N/A 04/03/2014 UPPER GASTROINTESTINAL ENDOSCOPY,WITH BIOPSY SINGLE OR MULTIPLE performed by David Dejesus MDat [facility] ENDOSCOPY PRO UPPER GI ENDOSCOPY, BIOPSY N/A 03/20/2016 EGD WITH BIOPSY performed by David Dejesus MD at [facility] ENDOSCOPY PRO UPPER GI ENDOSCOPY, BIOPSY N/A 11/22/2018 EGD WITH BIOPSY (WRVU 2.49) performed by David Dejesus MD at [facility] ENDOSCOPY PRO UPPER GI ENDOSCOPY, BIOPSY N/A 03/01/2020 UPPER GASTROINTESTINAL ENDOSCOPY,WITH BIOPSY SINGLE OR MULTIPLE (WRVU 2.49) performed by David Dejesus MD at [facility] ENDOSCOPY PRO UPPER GI ENDOSCOPY, BIOPSY N/A 09/23/2021 EGD WITH BIOPSY (WRVU 2.49) performed by David Dejesus MD at [facility] ENDOSCOPY PRO UPPER GI ENDOSCOPY, BIOPSY N/A 03/31/2022 EGD WITH BIOPSY (WRVU 2.49) performed by David Dejesus MD at [facility] ENDOSCOPY PRO UPPER GI ENDOSCOPY, BIOPSY N/A 07/03/2022 EGD WITH BIOPSY (WRVU 2.49) performed by David Dejesus MD at [facility] ENDOSCOPY PRO UPPER GI ENDOSCOPY, DIAGNOSTIC N/A 04/03/2014 EGD, UPPER GI ENDOSCOPY performed by David Dejesus MD at [facility] ENDOSCOPY PRO UPPER GI ENDOSCOPY, DIAGNOSTIC N/A 03/01/2020 EGD, UPPER GI ENDOSCOPY performed by David Dejesus MD at [facility] ENDOSCOPY PRO UPPER GI ENDOSCOPY, DIAGNOSTIC N/A 09/09/2022 EGD, UPPER GI ENDOSCOPY (WRVU 2.09) performed by Ayo Russ MD at [facility] MAIN OR Social history and habits: Social History Tobacco Use Smoking status: Former Years: 11 Types: Cigarettes Quit date: 02/26/2021 Years since quittin.5 Smokeless tobacco: Never Substance Use Topics Alcohol use: Not Currently Drug use: Never Significant family history: No family history on file. Pertinent ROS: as per HPI Physical exam: Pending (to be performed in interventional radiology the day of procedure) ASA: Pending (to be assessed in interventional radiology the day of procedure) Mallampati class: Pending (to be assessed in interventional radiology the day of procedure) 09/23/2023 ROSLYN Adkins documented in this encounter Plan of Treatment Upcoming Encounters Date Type Department Care Team (Late st Contact Info) Description 12/07/2023 1:00 PM EDT Appointment [place] [phone] 12/07/2023 2:00 PM EDT Office [place] [phone] Geronimo Mojica MD [facility] [place] [address] 12/27/2023 11:30 AM EDT Office [place] [phone] Noe Cuenca MD [facility] [place] [address] Scheduled Orders Name Type Priority Associated Diagnoses Orde r Schedule IR Site Check In Recovery Room Imaging Routine Problem with gastrostomy tube 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 1 Occurrences starting 09/23/2023 until 09/23/2023 Scheduled Procedures Name Priority Associated Diagnoses Date/Ti me EGD, UPPER GI ENDOSCOPY (WRV U 2.09) Peptic stricture of esophagus documented as of this encounter Results * IR G-Tube Check/Change (10/14/2023 12:48 PM EDT) Anatomical Region Laterality Modality Chest X-Ray Angiograph y Narrative 10/14/2023 12:49 PM EDT Table formatting from the original result was not included. Images from the original result were not included. IR PROCEDURE NOTE Procedure: Gastrostomy tube exchange. Indication for Procedure: Per Jennifer Hastings Johanny Irving is a 63 y.o. female with PMH of left femoral neck fracture, bipolar, alcohol use disorder, chronic pancreatitis, GERD complicated by esophagitis and Farrell's esophagus s/p G-tube placement (09/11/22) with most recent exchange on 05/09/23 - 16Fr, now with reports of leaking around catheter with tube feeds, who presents to Interventional Radiology to undergo check/exchange of G-tube. Patient's reports that she was evaluated at [facility] for possible PNA, and the G-tube became dislodged while there, replaced at bedside, and balloon was inflated without complication. She was discharged on 07/06, and leaking was first noted after the first tube feed while at home. has drain sponges around the G-tube currently. ?? Remainder of patient's medical and surgical history, allergies, medications, and social/family history obtained below as previously outlined in patient's medical record. Seen in IR recovery in followup to G-tube issues. Exchanged by IR on 09/16 due to occlusion. Patient traveled to [place] where tube could not be flushed. Exchanged at outside institution for 16 F non-EnFit catheter that was sutured into place. Returns to IR today with pain and need for supplies for different style catheter. Site taken down. There was a 16 F catheter-tip style tube with retention disk sutured in place to the skin. Scant dried blood at the site. Balloon volume confirmed to be 5 mL. Sutures released. Site cleansed aseptically. Retention disk repositioned to 6 cm marker. Clean and dry dressing applied. EnFit adapters provided. Patient to return morning of 09/26 for conversion back to EnFit style catheter. Procedure events and findings: Patient was positioned supine on the procedure table. ??Existing gastrostomy tube and adjacent skin were prepped and draped, maximal sterile barrier technique was used throughout the procedure. ??Contrast injection via the existing gastrostomy tube showed tube tip within the stomach. ??A guidewire was advanced through the gastrostomy tube and coiled in the stomach under fluoroscopy. ??The retention balloon was deflated and the gastrostomy tube removed over the wire. ??A new 16 [place] balloon retained nonlow-profile gastrostomy tube was then placed over the wire. ??Retention balloon was filled with 5 cc of sterile water. ??Contrast injection via the tube showed tip within the stomach. Medications: 2% lidocaine gel topical. Est Blood Loss: <5cc. Complications: ??No immediate. Impression: Gastrostomy tube exchange, now with 16 Fr balloon retained non low-profile with ENFit connector, ready for use. Resident/Fellow: None. Attending: Dr. Hailey Meredith performed this procedure. ?? Geronimo Chambers DO IMG IR ORDERABLES documented in this encounter Visit Diagnoses Diagnosis Problem with gastrostomy tube Neuroleptic-induced parkinsonism Secondary Parkinsonism Farrell's esophagus with high grade dysplasia Farrell's esophagus Farrell's esophagus with low grade dysplasia Farrell's esophagus Problem with gastrostomy tube Farrell's esophagus with high grade dysplasia Farrell's esophagus Farrell's esophagus with low grade dysplasia Farrell's esophagus documented in this encounter Care Teams Form Grader Operator Relationship Specialty Start Date End Date Ana Gillespie APRN [address] [place] [address] PCP - General Family Medicine 02/03/19 documented as of this encounter
--- OUTSIDE RECORDS SUMMARY | 2023-12-03 14:53 | XMS_ITS | Encounter Summary ---
Author Organization [facility] Address [facility] [place] [address] Care Team Providers Care Marketing Operations Assistant Name Role Phone Ana Gillespie VAUGHN Primary Care Provider Encounter Details Date Type Department Care Team (Latest Contact Info) Description 11/05/2023 6:41 AM EDT - 11/05/2023 9:54 AM EDT Hospital Encounter [place] [address] David Dejesus MD [facility] [place] [address] Discharge Disposition: Home Social History Tobacco Use [...] Sign Reading Time Taken Comments Blood Pressure 125/64 11/05/2023 9:20 AM EDT Pulse 54 11/05/2023 7:21 AM EDT Temperature 36.7 ??C (98.1 ??F) 11/05/2023 7:21 AM ED T Respiratory Rate 16 11/05/2023 9:02 AM EDT Oxygen Saturation 96% 11/05/2023 9:20 AM EDT Inhaled Oxygen Concentration - - Weight 63.5 kg (140 lb) 11/05/2023 7:21 AM EDT Height 154.9 cm (5' 1) 11/05/2023 7:21 AM EDT Body Mass Index 26.45 11/05/2023 7:21 AM EDT documented in this encounter Discharge Instructions * Discharge Instructions* Valerie Johnson RN - 11/05/2023 9:03 AM EDT UPPER GI ENDOSCOPY WHAT TO EXPECT AFTER THE PROCEDURE After the test you may feel a little more gassy or bloated than usual, this is normal. ACTIVITY Because of the sedation that you receivedYour judgement and reaction time are affected Go home and rest quietly for the remainder of the day. You may resume your normal activities tomorrow. Change from one position to the next slowly. You may lose your balance unexpectedly. Be careful on stairs, as you may be unsteady on your feet. FOR THE NEXT [address] OR OPERATE ANY MACHINERY DO NOT DRINK ALCOHOLIC BEVERAGES DO NOT SIGN LEGAL DOCUMENTS If you are a smoker: DO NOT SMOKE WHILE YOU ARE ALONE Diet Start by eating small portions of foods that ordinarily will not upset your stomach. Be gentle withwhat you choose to start with. Drink plenty of fluids ( unless otherwise told not to) Medications You may have a mild sore throat. Ice chips, popsicles, over the counter throat lozenges or spray may help numb your throat. This procedure should not cause a fever. IV SITE-- slight redness or tenderness is normal, you can use warm compresses if you get concerned.If the tenderness +/or redness increases or foul drainage and a red streak occurs, please contact your PCP immediately. WHEN SHOULD YOU CALL FOR HELP? Call 911 anytime you think that you need emergency care. For example, call if: You passed out (lost consciousness). You cough up blood. You vomit blood or what looks like coffee grounds. You pass maroon or very bloody stools. Call your healthcare provider or seek immediate medical attention if: You have trouble swallowing. You have belly pain. Your stools are black or tarlike or have streaks of blood. You are sick to your stomach or cannot keep fluids down. Watch closely for changes in your health, and be sure to contact your doctor IF Your throat still hurts after a day or two You do not get better as expected. Wednesday-Wednesday Same Day Endo [phone] 7a-8p Otherwise contact [phone] and ask to speak to the animal care specialist security installation sales technician Follow-up care is a fam part of your treatment and safety. Be sure to make and go to all appointments, and call your doctor if you are having problems. Instructions have been reviewed and patient expresses understanding documented in this encounter Medications at Time of Discharge Medication Sig Dispensed Refills Start Date End Date ciprofloxacin (Cipro) 500 mg tablet Take 1 tablet by mouth 2 times daily. 6 tablet 11/05/2023 ciprofloxacin (Cipro) 500 mg tablet Take 1 [...] Per G Tube route daily. 90 tablet 09/25/2022 insulin glargine-yfgn (Semglee) 100 unit/mL Solution Inject 10 Units subcutaneously nightly. 5 mL 09/24/2022 valproate (Depakene) 250 mg/5 mL (5 mL) Solution 6 mLs by Per G Tube route every 6 hours. 600 mL 09/24/2022 pantoprazole EC (Protonix) 40 mg Tablet, Delayed Release (E.C.)Indications:Gas troesophageal reflux disease with esophagitis without hemorrhage Take 1 tablet by mouth 2 times daily. 180 tablet 3 10/20/2021 Blood Sugar Diagnostic (UplikeTOUCH ULTRA TEST) StripIndications:Type 2 diabetes mellitus, uncontrolled [...] meter kit. 1 each 0 12/14/2014 Insulin Trinity, Disposable, (BD INSULIN PEN NEEDLE UF MINI) 31 x 3/16 NeedleIndications:Josefina betes mellitus type 2, uncontrolled 1 Device by [facility].(Non-Drug; Combo Route) route 3 times daily as needed. 100 each 11 12/13/2014 documented as of this encounter Progress Notes * Valerie Johnson RN - 11/05/2023 9:45 AM EDT Patient alert and oriented, vital signs stable. Reviewed discharge instructions; patient and verbalized understanding. Copy of instruction sheet with contact numbers for questions/concerns. Pain assessment documented. Patient escorted out of department via wheelchair with /vending route driver. documented in this encounter H&P Notes * David Dejesus MD - 11/05/2023 8:35 AM EDT PROBLEM LIST Patient Active Problem List Diagnosis Code GERD (gastroesophageal reflux disease) K21.9 Farrell's esophagus K22.70 T2DM (type 2 diabetes mellitus) E11.9 BMI 37.0-37.9, adult Z68.37 Bipolar disorder F31.9 Neuroleptic-induced parkinsonism G21.11, T43.505A Stress-induced cardiomyopathy I51.81 HISTORY OF PRESENT ILLNESS Jennifer Johanny Irving is a 63 y.o. y/o who presents for repeat esophageal dilation. MEDICATIONS No current facility-administered medications on file prior to encounter. Current Outpatient Medications on File Prior to Encounter Medication Sig Dispense Refill sacubitriL-valsartan (Entresto) 24-26 mg tablet 1 tablet by Per G Tube route 2 times daily. 60 tablet 4 metoprolol succinate XL (Toprol-XL) 50 mg ER [...] G Tube route daily. 90 tablet 3 valproate (Depakene) 250 mg/5 mL (5 mL) Solution 6 mLs by Per G Tube route every 6 hours. (Patient taking differently: 300 mg by Per G Tube route every 8 hours.) 600 mL 3 pantoprazole EC (Protonix) 40 mg Tablet, Delayed Release (E.C.) Take 1 tablet by mouth 2 times daily. 180 tablet 3 ciprofloxacin (Cipro) 500 mg tablet Take 1 tablet by mouth 2 times daily. 6 tablet 0 ciprofloxacin (Cipro) 500 mg tablet Take 1 tablet by mouth 2 times daily. 6 tablet 0 ciprofloxacin (Cipro) 500 mg tablet Take 1 tablet by mouth 2 times daily. 14 tablet 0 Miscellaneous Medical Supply Kit 1 Aluminum adjustable rolling walker 1 kit 0 insulin glargine-yfgn (Semglee) 100 unit/mL Solution Inject 10 Units subcutaneously nightly. (Patient taking differently: Inject subcutaneously nightly. Lantus) 5 mL 3 Blood Sugar Diagnostic (ONETOUCH ULTRA TEST) [...] glucose meter kit. 1 each 0 Insulin Trinity, Disposable, (BD INSULIN PEN NEEDLE UF MINI) 31 x 3/16 Needle 1 Device by [facility].(Non-Drug; Combo Route) route 3 times daily as needed. 100 each 11 PHYSICAL EXAM: Blood pressure 120/62, pulse 54, temperature 36.7 ??C (98.1 ??F), temperature source Oral, resp. rate 18, height 154.9 cm (5' 1), weight 63.5 kg (140 lb), SpO2 99%. GEN: Alert, cooperative. Pleasant. In NAD MP I ASA II HEENT: No oropharyngeal lesions. Neck supple. No masses. Thyroid symmetric LUNGS: CTAB CARD: RRR without m/g/r RECENT LABS Recent Results (from the past 24 hour(s)) POCT Glucose Result Value Ref Range POC Glucose 86 65 - 199 mg/dL ASSESSMENT AND PLAN Jennifer Irving is a 63 y.o. y/o who presents for endoscopic evaluation. Risks extensively discussed including bleeding, infection, reaction to anesthesia, perforation, pancreatitis (if applicable), bile duct injury (if applicable), missing a cancer (if applicable) and/or other unforseen compli cation. Consent signed and patient well informed of the risks of the procedure. documented in this encounter Plan of Treatment Upcoming Encounters Date Type Department Care Team (Late st Contact Info) Description 12/07/2023 1:00 PM EDT Appointment [place] [address] 12/07/2023 2:00 PM EDT Office [place] [address] Geronimo Mojica MD [facility] [place] [address] 12/27/2023 11:30 AM EDT Office [place] [address] Noe Cuenca MD [facility] [place] [address] Scheduled Procedures Name Priority Associated Diagnoses Date/Ti me EGD, UPPER GI ENDOSCOPY (WRV U 2.09) Peptic stricture of esophagus documented as of this encounter Procedures Procedure Name Priority Date/Time Associated Diagnosis Comments Up Gi Endoscopy, Dilatn W Guide (47260) 11/05/2023 8:34 AM EDT Peptic stricture of esophagus Dilate Esophagus (84502) 11/05/2023 8:34 AM EDT Peptic stricture of esophagus POCT GLUCOSE Routine 11/05/2023 7:50 AM EDT documented in this encounter Results * POCT Glucose (11/05/2023 7:50 AM EDT) POC Glucose 86 65 - 199 mg/dL [facility] Comment: Supplemental ranges: <140 mg/dL before meals <180 mg/dL all other times of the day Blood 11/05/2023 7:50 AM EDT 11/05/2023 7:50 AM EDT David Dejesus MD POINT OF CARE TEST ORDERABLES [facility] [place] [address] documented in this encounter Visit Diagnoses Not [...] 7:46 AM EDT 100 mL/hr 100 mL/hr documented in this encounter Active and Recently Administered Medications Times are shown in EDT. Continuous Medication Order 11/03/2023 11/04/2023 11/05/2023 lactated ringers infusion (CANCELED) 100 mL/hr, Intravenous, CONTINUOUS, Starting on Wed11/05/23 at 0745, Until Wed11/05/23 at 0945, Endoscopy (Day of Procedure) 0746 (New Bag - Prov ider: Mary Peace RN)0835 (Paused - Provider: Annie Alfonso CRNA - Comment: Switch to gravity)0836 (Restarted - Provider: Annie Alfonso CRNA)0900 (Anesthesia Volume Adjustment - Provider: Annie Alfonso CRNA) documented in this encounter Care Teams Marketing Operations Assistant Relationship Specialty Start Date End Date Ana Gillespie APRN [address] [place] [address] PCP - General Family Medicine 02/03/19 documented as of this encounter
--- OUTSIDE RECORDS SUMMARY | 2023-12-03 14:53 | XMS_ITS | Encounter Summary ---
Author Organization [facility] Address [facility] [place] [address] Care Team Providers Care Telephone Order Dispatcher Name Role Phone Ana Gillespie VAUGHN Primary Care Provider [phone] Encounter Details Date Type Department Care Team (Latest Contact Info) Description 11/17/2023 Travel Social History Tobacco Use Types Packs/Day [...] 12/07/2023 1:00 PM EDT Appointment Pulmonology at [place] [phone] 12/07/2023 2:00 PM EDT Office Visit Thoracic Surgery at [place] [phone] Geronimo Mojica MD [facility] [place] [address] 12/27/2023 11:30 AM EDT Office Visit Pulmonology at [place] [phone] Noe Cuenca MD [facility] [place] [address] Scheduled Procedures Name Priority Associated Diagnoses Date/Ti me EGD, UPPER GI ENDOSCOPY (WRV U 2.09) Peptic stricture of esophagus documented as of this encounter Visit Diagnoses Not on filedocumented in this encounter Care Teams Telephone Order Dispatcher Relationship Specialty Start Date End Date Ana Gillespie APRN [address] [place] [address] PCP - General Family Medicine 02/03/19 documented as of this encounter
--- OUTSIDE RECORDS SUMMARY | 2023-12-03 14:53 | XMS_ITS | Encounter Summary ---
Author Organization [facility] Address [facility] [place] [address] Care Team Providers Care Twister Hand Name Role Phone Ana Gillespie APRN Primary Care Provider [phone] Encounter Details Date Type Department Care Team (Late st Contact Info) Description 10/07/2023 11:15 AM EDT - 10/07/2023 12:00 PM EDT Surgery [place] [address] David Dejesus MD [facility] [place] [address] EGD-ESOPHOGEAL DILATATION OVER GUIDE WIRE (WRVU 2.91) Social History Tobacco Use Types Packs/Day Years [...] the day after the procedure, use an yfdm-bta-cxvqcol spray to numb your throat. Sucking on [...] occurs, please contact your Doctor. Please call [phone] before 8pm Mon-Fri with problems, questions or concerns. If you call after 8pm or on weekends, call the Hospital at [phone] and ask to speak to the Utilization Review Rn home restoration service cleaner and the capsule filling machine operator will contact that person for you. [...] any problems. Where can you learn more? [facility] View your After Visit Summary and more online at [email or web address] If you would like to provide feedback about your hospital experience, please call the Office of Patient and Family Relations at . If you have received this After Visit Summary in error, please immediately return it in person to the department, or notify the [facility] Privacy Office by calling toll free at between the hours of 8AM and 5PM to arrange for our retrieval of the documents at no cost to you. Content Version: 12.2 ?? 3545-6060 [employer]. Care instructions adapted under license by [facility]. If you have questions about a medical condition or this instruction, always ask your healthcare professional. [employer] disclaims any warranty or liability for your [...] the day after the procedure, use an iqpj-nip-ttphipc spray to numb your throat. Sucking on [...] occurs, please contact your Doctor. Please call [phone] before 8pm Mon-Fri with problems, questions or concerns. If you call after 8pm or on weekends, call the Hospital at [phone] and ask to speak to the Utilization Review Rn home restoration service cleaner and the capsule filling machine operator will contact that person for you. [...] any problems. Where can you learn more? [facility] View your After Visit Summary and more online at [email or web address] If you would like to provide feedback about your hospital experience, please call the Office of Patient and Family Relations at . If you have received this After Visit Summary in error, please immediately return it in person to the department, or notify the [facility] Privacy Office by calling toll free at between the hours of 8AM and 5PM to arrange for our retrieval of the documents at no cost to you. Content Version: 12.2 ?? [phone] [employer]. Care instructions adapted under license by [facility]. If you have questions about a medical condition or this instruction, always ask your healthcare professional. [employer] disclaims any warranty or liability for your [...] meter kit. 1 each 0 12/14/2014 Insulin [place], Disposable, (BD INSULIN PEN NEEDLE UF MINI) 31 x 07/23 NeedleIndications:Josefina betes mellitus type 2, uncontrolled 1 Device by [facility].(Non-Drug; Combo Route) route 3 times daily as [...] glucose meter kit. 1 each 0 Insulin [place], Disposable, (BD INSULIN PEN NEEDLE UF MINI) 31 x 3/16 Needle 1 Device by [facility].(Non-Drug; Combo Route) route 3 [...] 12/07/2023 1:00 PM EDT Appointment [place] [phone] 12/07/2023 2:00 PM EDT Office Visit Thoracic Surgery at [place] [phone] Geronimo Mojica MD [facility] [place] [address] 12/27/2023 11:30 AM EDT Office Visit [place] [phone] Noe Cuenca MD [facility] [place] [address] Scheduled Procedures Name Priority Associated Diagnoses Date/Ti me EGD, UPPER GI ENDOSCOPY (WRV U 2.09) Peptic stricture of esophagus documented as of this encounter Procedures Procedure Name Priority Date/Time Associated Diagnosis Comments Up Gi Endoscopy, Jes W Guide (69089) 10/07/2023 10:44 AM EDT Peptic stricture of esophagus UPPER GI ENDOSCOPY Routine 10/07/2023 10 :34 AM EDT documented in this encounter Results * UPPER GI ENDOSCOPY (10/07/2023 10:34 AM EDT) UPPER GI ENDOSCOPY [facility] Endoscopy Procedure Date: 10/07/2023 10:34 AM ? Patient Name: Jennifer Irving ? Date of : 1960 ? Age: 63 ? Order #: [id number] ? Instrument Name: [id number] ? Procedure: ? Upper GI endoscopy Indications: ? Dysphagia Providers: ? David Dejesus MD, Veena ? Mary Geller Referring MD: ? Medicines: ? General Anesthesia [...] PROVATION documented in this encounter Visit Diagnoses Diagnosis Peptic stricture of esophagus Stricture and stenosis of esophagus documented in this encounter Administered Medications Inactive Administered [...] RN) documented in this encounter Care Teams Twister Hand Relationship Specialty Start Date End Date Ana Gillespie APRN [address] [place] [address] PCP - General Family Medicine 02/03/19 documented as of this encounter
--- OUTSIDE RECORDS SUMMARY | 2023-12-03 14:53 | XMS_ITS | Clinical Summary ---
Author Organization Formerly [facility] Address [facility] [place] [address] Care Team Providers Care Online Marketer Name Role Phone Ana Gillespie VAGUHN Primary Care Provider [phone] Allergies Active Allergy Reactions Criticality Noted Date Comments Meperidine Hcl Nausea And Vomiting Low CIS - violently ill Metformin Other (See Comments) Low 09/23/2021 Severe diarrhea Medications Medication Sig Dispensed Refills Start Date End Date Status Insulin [place], Disposable, (BD INSULIN PEN NEEDLE UF MINI) 31 x 16 NeedleIndications: Diabetes mellitus type 2, uncontrolled 1 Device by Misc.(Non-Drug; Combo Route) route 3 times daily as needed. 100 each 11 12/13/2014 Active Blood Sugar Diagnostic (ONETOUCH ULTRA TEST) StripIndications:T ype 2 diabetes mellitus, uncontrolled 1 each by Other route 3 times daily. by Other route. 1 box = 100 test strips; 3 boxes = 300 test strips. 300 each 3 12/14/2014 Active lancets (ONE TOUCH DELICA) 33 gauge MiscIndications:Ty pe 2 diabetes mellitus, uncontrolled 1 each by Other route 3 times daily. by Other route. 1 box = 100 test strips; 3 boxes = 300 test strips. 300 each 3 12/14/2014 Active Blood-Glucose Meter (ONETOUCH ULTRA2) KitIndications:Typ e 2 diabetes mellitus, uncontrolled by Other route. 1 = one blood glucose meter kit. 1 each 0 12/14/2014 Active pantoprazole EC (Protonix) 40 mg Tablet, Delayed Release (E.C.)Indications: Gastroesophageal reflux disease with esophagitis without hemorrhage Take 1 tablet by mouth 2 times daily. 180 tablet 3 10/20/2021 Active atorvastatin (Lipitor) 80 mg tablet 1 tablet by Per G Tube route every evening. 90 tablet 3 09/24/2022 Active empagliflozin (Jardiance) 10 mg tablet Take 1 tablet by mouth daily. 90 tablet 3 09/25/2022 Active ferrous sulfate 300 mg (60 mg iron)/5 mL Liquid 5 mLs by Per G Tube route every other day. 150 mL 12 09/26/2022 Active folic acid (Vitamin B9) 1 mg tablet 1 tablet by Per G Tube route daily. 90 tablet 3 09/25/2022 Active insulin glargine-yfgn (Semglee) 100 unit/mL Solution Inject 10 Units subcutaneously nightly. 5 mL 3 09/24/2022 Active Additional Information Patient taking differently: (No dose reported), Subcutaneous NIGHTLY, Lantus, Reported on 11/12/2022 valproate (Depakene) 250 mg/5 mL (5 mL) Solution 6 mLs by Per G Tube route every 6 hours. 600 mL 3 09/24/2022 Active Additional Information Patient taking differently:300 mg Per G TubeEVERY 8 HOURS, Informant: Spouse/Significant Other, Reported on 02/24/2023 insulin aspart U-100 (NovoLOG FlexPen U-100 Insulin) [...] GIVE 6 units 12 mL 12 09/25/2022 Active sucralfate (Carafate) 1 gram tablet Take 1 tablet by mouth 4 times daily. 360 tablet 3 10/22/2022 Active MELATONIN ORAL Take 9 mg by mouth nightly as needed. Via g tube Active acetaminophen (Tylenol) 160 mg/5 mL Liquid Take 15 mg/kg/dose by mouth every 4 hours as needed for Fever. 1000 mg bid Active ergocalciferoL, vitamin D2, (vitamin D2) 50,000 unit capsule Take 1 capsule by mouth every 14 days. 6 capsule 3 11/18/2022 Active insulin isophane- NPH 100 unit/mL (3 mL) Insulin Pen Administer 20 units at start of your feed and 20 units 6 hours into your feed 45 mL 3 12/08/2022 Active buPROPion XL (Wellbutrin XL) 300 mg XL 24 hr tablet 300 mg every morning. Via G-tube Active gabapentin (Neurontin) 300 mg capsule 900 mg by Per G Tube route 3 times daily. Active QUEtiapine (SEROquel) 100 mg tablet Take 100 mg by mouth daily. Active ondansetron (Zofran) 4 mg tablet Take 4 mg by mouth every 8 hours as needed for Nausea. Active metoprolol succinate XL (Toprol-XL) 50 mg ER 24 hr tabletIndications: HFrEF (heart failure with reduced ejection fraction) Take 25 mg (1/2 tab) via g-tube bid. 30 tablet 12 03/04/2023 Active Miscellaneous Medical Supply KitIndications:Glo izzy parkinsonism 1 Aluminum adjustable rolling walker 1 kit 05/25/2023 Active ciprofloxacin (Cipro) 500 mg tablet Take 1 tablet by mouth 2 times daily. 14 tablet 06/01/2023 Active Additional Information Patient not taking.Reported on 11/17/2023 sacubitriL-valsart an (Entresto) 24-26 mg tabletIndications: HFrEF (heart failure with reduced ejection fraction) 1 tablet by Per G Tube route 2 times daily. 60 tablet 4 07/12/2023 Active ciprofloxacin (Cipro) 500 mg tablet Take 1 tablet by mouth 2 times daily. 6 tablet 08/02/2023 Active Additional Information Patient not taking.Reported on 11/17/2023 ciprofloxacin (Cipro) 500 mg tablet Take 1 tablet by mouth 2 times daily. 6 tablet 10/07/2023 Active Additional Information Patient not taking.Reported on 11/17/2023 ciprofloxacin (Cipro) 500 mg tablet Take 1 tablet by mouth 2 times daily. 6 tablet 11/05/2023 Active Additional Information Patient not taking.Reported on 11/17/[address] (Cymbalta) [address] capsule Take 80 mg by mouth daily. 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 Recommend finding an alternative to olanzapine. Instructions given in patient instructions below. Bipolar disorder 02/12/2022 BMI 37.0-37.9, adult 12/13/2014 T2DM (type 2 diabetes mellitus) 12/12/2014 GERD (gastroesophageal reflux disease) 3 Farrell's esophagus 03/15/2013 Resolved Problems Problem Noted Date Diagnosed Date Resolved Date Shock 08/14/2022 08/22/2022 Encounters Date Type Department Care Team Description 11/17/2023 8:40 AM EDT Office Visit Cardiology at [place] [phone] Milagros Hernandez MD Stress-induced cardiomyopathy 11/17/2023 Travel 11/05/2023 8:36 AM EDT Anesthesia Event Gastroenterology at [place] [phone] Daryl Carmona MD 11/05/2023 8:30 AM EDT - 11/05/2023 9:00 AM EDT Surgery Gastroenterology at [place] [phone] David Dejesus MD EGD-DILATATION BY SOUND OR BOUGIE, SINGLE OR MULTIPLE PASSES (WRVU 1.28) 11/05/2023 6:41 AM EDT - 11/05/2023 9:54 AM EDT Hospital Encounter Gastroenterology at [place] [phone] David Dejesus MD Discharge Disposition: Home 11/05/2023 Orders Only Gastroenterology at [place] [phone] David Dejesus MD Peptic stricture of esophagus 11/05/2023 Orders [place] [address] David Dejesus MD Peptic stricture of esophagus 10/27/2023 Telephone Gastroenterology at [place] [phone] Parris Maravilla 10/25/2023 Orders [place] [address] David Dejesus MD Peptic stricture of esophagus 10/14/2023 10:11 AM EDT - 10/14/2023 11:59 PM EDT Hospital [place] [address] Geronimo Chambers, DO Problem with gastrostomy tube; Farrell's esophagus with high grade dysplasia; Farrell's esophagus with low grade dysplasia Discharge Disposition: Home 10/14/2023 Travel 10/12/2023 [place] [address] Niru Mary 10/07/2023 11:15 AM EDT - 10/07/2023 12:00 PM EDT Surgery [place] [phone] David Dejesus MD EGD-ESOPHOGEAL DILATATION OVER GUIDE WIRE (WRVU 2.91) 10/07/2023 10:41 AM EDT Anesthesia [place] [phone] Alex Conley MD [place], Ann O, CRNA 10/07/2023 9:20 AM EDT - 10/07/2023 12:03 PM EDT Hospital Encounter Gastroenterology at [place] [phone] David Dejesus MD Discharge Disposition: Home 10/07/2023 Orders [place] [address] David Dejesus MD 10/05/2023 [place] [address] Niru Mary 09/23/2023 9:47 AM EDT - 09/23/2023 11:59 PM EDT Hospital [place] [address] Geronimo Chambers, DO Problem with gastrostomy tube; Neuroleptic-induced parkinsonism; Farrell's esophagus with high grade dysplasia; Farrell's esophagus with low grade dysplasia Discharge Disposition: Home 09/23/2023 Travel 09/20/2023 Notes [place] [phone] Hang Cooper PA 09/20/2023 Telephone [place] [address] Juice Maxwell RN 09/17/2023 11:55 AM EDT - 09/17/2023 11:59 PM EDT Hospital [place] [address] Geronimo Chambers, DO Discharge Disposition: Home 09/17/2023 11:00 AM EDT - 09/17/2023 11:54 AM EDT Hospital [place] [address] Geronimo Chambers, DO Problem with gastrostomy tube Discharge Disposition: Home 09/17/2023 Travel 09/08/2023 Tele[place] [address] Parris Maravilla from Last 3 Months Social History Tobacco Use Types Packs/Day Years Used Date Smoking Tobacco: Former Cigarettes 1 - 02/26/2021 Smokeless Tobacco: Never Tobacco Cessation:Counseling Given: Not Answered Alcohol Use Standard Drinks/Week Comments Not Currently 0 (1 standard drink = 0.6 oz pur e alcohol) Sex and Gender Information Value Date Recorded Sex Assigned at Not on file Gender Identity Not on file Sexual Orientation Not on file Last Filed Vital Signs Vital Sign Reading Time Taken Comments Blood Pressure 129/79 11/17/2023 8:35 AM EDT Pulse 58 11/17/2023 8:35 AM EDT Temperature 36.7 ??C (98.1 ??F) 11/05/2023 7:21 AM ED T Respiratory Rate 16 11/05/2023 9:02 AM EDT Oxygen Saturation 99% 11/17/2023 8:35 AM EDT Inhaled Oxygen Concentration - - Weight 62.5 kg (137 lb 11.2 oz) 11/17/2023 8:35 AM EDT Height 152.4 cm (5') 11/17/2023 8:35 AM EDT Body Mass Index 26.89 11/17/2023 8:35 AM EDT Plan of Treatment Upcoming Encounters Date Type Department Care Team (Late st Contact Info) Description 12/07/2023 1:00 PM EDT Appointment [place] [phone] 12/07/2023 2:00 PM EDT Office [place] [address] Geronimo Mojica MD [facility] DR THORACIC SURGERY [place], [place] [phone] 12/27/2023 11:30 AM EDT Office [place] [address] Noe Cuenca MD [facility] PULMONARY MEDICINE [place], [place] [phone] Scheduled Procedures Name Priority Associated Diagnoses Date/Ti me EGD, UPPER GI ENDOSCOPY (WRV U 2.09) Peptic stricture of esophagus Health Maintenance Due Date Last Done Comments CT Colonography 1960 FIT DNA 1960 FIT 1960 Sigmoidoscopy 1960 Pneumococcal Vaccine: At-Ris k 5-64yrs (1 of 2 - PCV) 1966 DM Opthalmology Exam 1970 HIV screen 1978 Hepatitis C Screening 1978 Tdap adult 1979 Tetanus vaccine 1979 HPV test 1990 PAP Smear 1990 Breast Cancer Share Decision Needed 2000 Zoster vaccine (1 of 2) 2010 DM Urine Microalbumin yearly 12/14/2015 12/13/2014 Breast Cancer screening 07/02/2016 07/02/2014 DM Hemoglobin A1c 6 month 02/14/2023 08/15/2022, 10/2014 DM Creatinine yearly 09/26/2023 09/25/2022, 09/24/2022, 09/23/2022, Additional history exists Influenza (Flu) vaccine (1 o f 1 - Influenza standard series) 01/09/2024 Colonoscopy 03/01/2025 03/01/2020, 10/07/2019, 03/20/2016, Additional history exists Colorectal Cancer Screening 03/01/2025 Sigmoidoscopy (10 year) with FIT yearly 03/01/2030 03/01/2020, 03/01/2020, 03/20/2016, Additional history exists Lipid Screening Discontinued 08/29/2022 Covid-19 Vaccine Completed 02/24/2023, , 11/06/2021, Additional history exists Medical Devices Implanted Type Area Asphalt Tamper Device Identifier Shelf Expiration Date Model / Serial / Lot Other Implanted:Qty: 3 Other Left: Hip Description:three screws lef t hip Procedures Procedure Name Priority Date/Time Associated Diagnosis Comments Up Gi Endoscopy, Dilatn W Guide (57455) 11/05/2023 8:34 AM EDT Peptic stricture of esophagus Dilate Esophagus (03030) 11/05/2023 8:34 AM EDT Peptic stricture of esophagus POCT GLUCOSE Routine 11/05/2023 7:50 AM EDT UPPER GI ENDOSCOPY Routine 11/05/2023 6: 55 AM EDT IR G-TUBE CHECK/CHANGE Routine 10/14/2023 12:48 PM EDT Problem with gastrostomy tube Farrell's esophagus with high grade dysplasia Farrell's esophagus with low grade dysplasia Up Gi Endoscopy, Dilatn W Guide ([id number]) 10/07/2023 10:44 AM EDT Peptic stricture of esophagus UPPER GI ENDOSCOPY Routine 10/07/2023 10 :34 AM EDT IR SITE CHECK IN RECOVERY ROOM Routine 09/17/2023 1:00 PM EDT Problem with gastrostomy tube IR G-TUBE CHECK/CHANGE Routine 09/17/2023 12:51 PM EDT BASIC METABOLIC PANEL (NON-FASTING) Routine 09/25/2022 3:11 AM EDT LIPID PANEL (REFLEX DIRECT LDL) Routine 08/29/2022 4:48 AM EDT HC HEMOGLOBIN A1C Routine 08/15/2022 3:0 5 AM EDT COLONOSCOPY Routine 03/01/2020 7:22 AM EDT U ALBUMIN/CRE RATIO STAT 12/13/2014 1 2:33 PM EDT Diabetes mellitus type 2, uncontrolled MAMMO 2D DIGITAL SCREEN EDUARD BILATERAL Routine 07/02/2014 1:12 PM EST from Last 3 Months or Most Recently Relevant to Health Maintenance Results * POCT Glucose (11/05/2023 7:50 AM EDT) [facility] POC Glucose 86 65 - 199 mg/dL [facility] Comment: Supplemental ranges: <140 mg/dL before meals <180 mg/dL all other times of the day Blood 11/05/2023 7:50 AM EDT 11/05/2023 7:50 AM EDT David Dejesus MD POINT OF CARE TEST ORDERABLES Performing Organization Address City/State/[facility] Co de Phone Number [facility] [place] [address] * UPPER GI ENDOSCOPY (11/05/2023 6:55 AM EDT) [facility] UPPER GI ENDOSCOPY [facility] Endoscopy Procedure Date: 11/05/2023 6:55 AM ? Patient Name: Jennifer Irving ? Date of : 1960 ? Age: 63 ? Order #: [id number] ? Instrument Name: [id number] ? Procedure: ? Upper GI endoscopy Indications: ? Stricture dilation Providers: ? David Dejesus MD, Michael ? Ayo Brink MD: ?Ana Young Medicines: ? General Anesthesia; Cipro 400 mg IV Complications: ? No immediate complications. Procedure: ? [...] the upper third of ? esophagus The Endoscope was ? introduced through the and advanced ? to the esophagus. The upper GI ? endoscopy was accomplished without ? difficulty. The patient tolerated ? the procedure well. ? Findings: ? The examined esophagus was normal until 25 cm where ? the patient's known stricture was virtualized. We ? could not pass the Ultraslim scope through the ? stricture. We placed a Savary dilator under direct ? visualization through the stricture and then dilated ? using a 6-7-8 mm dilator. We then evaluated again ? endoscopically and there was a proximal rent and we ? decided not to pursue further dilation. ? Moderate Sedation: ? Not applicable - See Anesthesia documentation Impression: ?- Esophageal stricture - dilated to ? 8 mm. Recommendation: ?- Repeat exam in 3-4 weeks ? Attending Participation: ? I personally performed the entire procedure. ? ___ David Dejesus MD 11/05/2023 9:02:45 AM This report has been signed electronically. Number of Addenda: 0 Note Initiated On: 11/05/2023 6:55 AM [employer]ATION 11/05/2023 6:55 AM EDT Ana Gillespie APRN GENERAL SURGICAL ORD ERABLES [employer] * IR G-Tube Check/Change (10/14/2023 12:48 PM EDT) Only the most recent of2 resultswithin the time period is included. Anatomical Region Laterality Modality Chest X-Ray Angiograph y Narrative 10/14/2023 12:49 PM EDT Table formatting from the original result was not included. Images from the original result were not included. IR PROCEDURE NOTE Procedure: Gastrostomy tube exchange. Indication for Procedure: Per Jennifer Hastings Aristides is a 63 y.o. female with PMH [...] Patient's reports that she was evaluated at [facility] for possible PNA, and the G-tube [...] 09/16 due to occlusion. Patient traveled to [place] where tube could not be flushed. Exchanged [...] removed over the wire. ??A new 16 [place] balloon retained nonlow-profile gastrostomy tube was then [...] connector, ready for use. Resident/Fellow: None. Attending: IDr. Hart performed this procedure. ?? Geronimo Chambers DO IMG IR ORDERABLES * UPPER GI ENDOSCOPY (10/07/2023 10:34 AM EDT) [facility] Signature UPPER GI ENDOSCOPY [facility] Endoscopy Procedure Date: 10/07/2023 10:34 AM ? Patient Name: Jennifer Irving ? Date of : 1960 ? Age: 63 ? Order #: [id number] ? Instrument Name: [id number] ? Procedure: ? Upper GI endoscopy Indications: [...] AM EDT Unknown GENERAL SURGICAL ORD ERABLES Performing Organization Address [facility] de Phone Number [facility] * IR Site Check In Recovery Room (09/17/2023 1:00 PM EDT) Narrative RAD - 09/17/2023 1:00 PM EDT This exam is auto-finalizing. No interpretation was done. Geronimo Chambers DO IMG IR ORDERABLES Performing Organization Address [facility] de Phone Number [place], [place] * (ABNORMAL) Basic Metabolic Panel (non-fasting) (09/25/2022 3:11 AM EDT) Glucose Lvl 187 65 - 199 mg/dL [facility] Comment:Diabetes: >=200 mg/d L plus symptoms BUN 32(H) 8 - 18 mg/dL [facility] Creatinine 0.62(L) 0.70 - 1.20 mg/dL [facility] Sodium 142 135 - 145 mmol/L [facility] Potassium 4.6 3.5 - 5.0 mmol/L [facility] Comment: Please note: ??Patients with WBC >100,000 may have falsely elevated Potassium levels. ??For accurate Potassium quantification in these patients send serum separator tube (gold top) for subsequent determinations. ??Contact the Clinical Chemistry Laboratory if there are any questions. Chloride 103 98 - 107 mmol/L [facility] CO2 31 22 - 31 mmol/L [facility] Anion Gap 8 5 - 15 mmol/L [facility] Calcium 9.8 8.5 - 10.5 mg/dL [facility] Estimated GFR 101 >=60 mL/min/1. 73 m?? [facility] Comment: This patient's estimated GFR was calculated using the 2020 CKD-EPI equation. The estimated GFR can vary from the measured GFR by up to 30% in the absence of rapidly changing kidney function. Assessment of the estimated GFR is not appropriate when creatinine concentrations are rapidly changing. For clinical situations in which a more precise estimate of GFR is necessary, consider alternative methods of GFR estimation such as a 24-hour urine creatinine clearance. Assignment of CKD stage 1-5 for patients with an eGFR near the transition point between stages may be based on clinical assessment of muscle mass and symptoms in addition to eGFR. Blood 09/25/2022 3:11 AM EDT 09/25/2022 3:54 AM EDT Narrative Resulting Agency Comment Spec In Lab Geronimo Pascal MD CHEMISTRY ORDERABLES [facility] [place] [address] * Lipid Panel (Reflex Direct LDL) (08/29/2022 4:48 AM EDT) Chol, Total 110 mg/dL [facility] Comment: Lower Risk: <200 mg/dL Average Risk: 200-239 mg/dL Higher Risk: >lr=876 mg/dL Triglycerides 127 mg/dL [facility] Comment: Average Risk/Lower Risk: <150 mg/dL Borderline High Risk: 150-199 mg/dL High Risk: 200-499 mg/dL Very High Risk: >vz=575 mg/dL HDL 34 mg/dL [facility] Comment: Males: ?? Higher Risk: <40 mg/dL Females: ?? Higher Risk: <50 mg/dL LDL Cholesterol 51 mg/dL [facility] Comment: Lowest Risk: <100 mg/dL Lower Risk: 100-129 mg/dL Borderline High Risk: 130-159 mg/dL High Risk: 160-189 mg/dL Very High Risk: >pp=330 mg/dL Chol/HDL Ratio 3.2 ratio [facility] Lipid Interpretation See Note [facility] Comment: Lipid management should be guided by a patient? s ASCVD risk, goals and preferences. ACC/AHA Guidelines recommend high intensity statin if clinical ASCVD or LDL greater than or equal to 190 mg/dL. http://Qui.lt.com/PZX-GEY-Yrddepkcw Adults aged 40-75 with LDL 70-189 mg/dL should have their 10 year ASCVD risk estimated with the ACC/AHA ASCVD risk traveling electrician http://tools.acc.org/ASNGH-Fmds-Hkpkhfagw/ Statin should be discussed if risk greater than or equal to 7.5% in non-diabetics. With diabetes, moderate intensity statin is recommended if risk less than 7.5%, high intensity if risk greater than or equal to 7.5%. Annual lipid monitoring on statins is not necessary. Evaluate secondary causes of Triglycerides greater than 500 mg/dL or LDL greater than 190 mg/dL: See table 6 of ACC/AHA Guideline. Lifestyle modification is a critical component of ASCVD risk reduction. Blood 08/29/2022 4:48 AM EDT 08/29/2022 4:58 AM EDT Narrative Resulting Agency Comment Spec In Lab Milagros Hernandez MD CHEMISTRY ORDERABLES [facility] [place] [address] * (ABNORMAL) Hemoglobin A1c (08/15/2022 3:05 AM EDT) Hemoglobin A1C 6.2(H) 4.3 - 5.6 % [facility] Comment: Reference Range: 4.3 - 5.6% 5.7 - 6.4% - Increased Risk of Developing Diabetes Mellitus >= 6.5% - Consistent with diagnosis of Diabetes Mellitus In the absence of hyperglycemia (i.e. plasma glucose > 200 mg/dL) or classic symptoms of hyperglycemia a repeat measurement of HbA1c should be performed on a separate sample to confirm the diagnosis. Diagnosis and Classification of Diabetes Mellitus, Diabetes Care 2013; 36: Suppl. 1, S67-46 Est Avg Gluc 130 mg/dL [facility] Comment: eAG equivalents for HbA1c percentages: HbA1c(%) ?eAG(mg/dL) 6.0 ?126 6.5 ?140 7.0 ?154 7.5 ?169 8.0 ?183 8.5 ?197 9.0 ?212 9.5 ?226 10.0 ? 240 Limitations: The eAG calculation has not been validated on women, individuals below 18 years old and above 70 years old, and individuals with hemoglobinopathies. Additional resources are available on the ADA website. Lucio BIGGS, Jeannie J, Edwin R, et al. ??Translating the A1C assay into estimated average glucose values. ??Diabetes Care 2008:31(8):4223-7237. Blood 08/15/2022 3:05 AM EDT 08/15/2022 3:16 AM EDT Narrative Resulting Agency Comment Spec In Lab Carlos Terry MD CHEMISTRY ORDERABLES [facility] [place] [address] * COLONOSCOPY (03/01/2020 7:22 AM EDT) Pathologist [facility] COLONOSCOPY [facility] Endoscopy Procedure Date: 03/01/2020 7:22 AM ? Patient Name: Jennifer Irving ? Date of : 1960 ? Age: 59 ? Order #: [id number] ? Instrument Name: [id number] ? Procedure: ? Colonoscopy Indications: ? Screening for colorectal malignant ? neoplasm Providers: ? David Dejesus MD, Elizabeth Celis, ? RN, Eligio Sadler RN Referring MD: ?Ana Gillespie Medicines: ? Monitored Anesthesia Care Complications: ? No immediate complications. Procedure: ? Pre-Anesthesia Assessment: ? - Prior to the procedure, a History ? and Physical was performed, and ? patient medications and allergies ? were reviewed. The patient is ? competent. The risks and benefits of ? the procedure and the sedation ? options and risks were discussed with ? the patient. All questions were ? answered and informed consent was ? obtained. Patient identification and ? proposed procedure were verified by ? the physician in the pre-procedure ? area. Mental Status Examination: ? alert and oriented. Airway ? Examination: normal oropharyngeal ? airway and neck mobility. Respiratory ? Examination: clear to auscultation. ? CV Examination: normal. Prophylactic ? Antibiotics: The patient does not ? require prophylactic antibiotics. ? Prior Anticoagulants: The patient has ? taken no previous anticoagulant or ? antiplatelet agents. ASA Grade ? Assessment: III - A patient with ? severe systemic disease. After ? reviewing the risks and benefits, the ? patient was deemed in satisfactory ? condition to undergo the procedure. ? The anesthesia plan was to use ? monitored anesthesia care (MAC). ? Immediately prior to administration ? of medications, the patient was ? re-assessed for adequacy to receive ? sedatives. The heart rate, ? respiratory rate, oxygen saturations, ? blood pressure, adequacy of pulmonary ? ventilation, and response to care ? were monitored throughout the ? procedure. The physical status of the ? patient was re-assessed after the ? procedure. ? The procedure, indications, benefits, ? risks and alternatives were explained ? to the patient. Specifically ? discussed were potential ? complications including, but not ? limited to, bleeding, perforation, ? infection, missing a cancer, and ? adverse medication reactions. The ? patient was placed in the left ? lateral decubitus position, and a ? digital rectal exam was performed. ? The Colonoscope was inserted in the ? anus and under direct visualization, ? advanced to the cecum, identified by ? appendiceal orifice and ileocecal ? valve. Careful inspection was made as ? the colonoscope was withdrawn. The ? colonoscopy was performed without ? difficulty. The patient tolerated the ? procedure well. The quality of the ? bowel preparation was excellent. ? Findings: ? The perianal and digital rectal examinations were ? normal. ? The colon (entire examined portion) appeared normal. ? Withdrawal time 12:30 ? Moderate Sedation: ? Not applicable - See Anesthesia documentation Impression: ?- The entire examined colon is normal. ? - No specimens collected. Recommendation: ?- Repeat exam in five years given ? prior history of polyps ? Attending Participation: ? I personally performed the entire procedure. ? ___ David Dejesus MD 03/01/2020 9:17:20 AM This report has been signed electronically. Number of Addenda: 0 Note Initiated On: 03/01/2020 7:22 AM PROVATION 03/01/2020 7:22 AM EDT Ana Gillespie APRN GENERAL SURGICAL ORD ERABLES PROVATION * Microalbumin, urine, random (12/13/2014 12:33 PM EDT) U Creatinine 284 mg/dL CERNER MILLENNIUM U Albumin Conc, Random 258.4 mg/L CERNER MILLENNIUM Alb/Cr Ratio, Random 91 mcg/mg Cr CERNER MILLENNIUM Comment: Reference Range* Random collection (mcg/mg creatinine) Normal ?<30 Microalbuminuria ?? 30 - 300 Clinical Albuminuria ?? >300 *[place] [employer]. Diabetic Nephropathy. Diabetes Care 1997;(Suppl 1):S24-S27 Exercise within 24 hour, infection, fever, CHF, marked hyperglycemia, and marked hypertension may elevate urinary albumin excretion over baseline values. Urine specimen (specimen) 12/13/2014 12:33 PM EDT 12/13/2014 12:39 PM EDT Narrative Resulting Agency Comment Spec In Lab Moustapha Agosto MD [facility] * Mammography Screen Eduard 2D Bilateral (07/02/2014 1:12 PM EST) Anatomical Region Laterality Modality Breast Bilateral Mammography 07/02/2014 1:12 PM EST Narrative 07/03/2014 11:47 AM EST Reason for Exam: Screening ?? Technique: Craniocaudal (CC) and Medio-lateral Oblique (MLO) views of both breasts obtained with direct digital capture. ?? The exam was evaluated by CAD version 8.3.17. ?? Findings: ?? This is a negative mammogram (ACR Category 1). There is a stable fibroglandular pattern without significant change from prior studies. There is no mammographic evidence of cancer. The breasts are heterogeneously dense which limits mammographic sensitivity for the detection of malignancy. ?? CONCLUSION: This is a NEGATIVE mammogram (ACR Category 1). ? Routine screening mammography is recommended with the frequency dependent upon the patients age and breast cancer risk factors. ?? A letter has been sent to this patient by the breast imaging center. Procedure Note Romy Castro MD - 07/03/2014 Reason for Exam: Screening Technique: Craniocaudal (CC) and Medio-lateral Oblique (MLO) views of both breasts obtained with direct digital capture. The exam was evaluated by CAD version 8.3.17. Findings: This is a negative mammogram (ACR Category 1). There is a stablefibroglandular pattern without significant change from prior studies. There is no mammographic evidence of cancer. The breasts areheterogeneously dense which limits mammographic sensitivity for the detection ofmalignancy. CONCLUSION: This is a NEGATIVE mammogram (ACR Category 1). Routine screening mammography is recommended with the frequency dependentupon the patients age and breast cancer risk factors. A letter has been sent to this patient by the breast imaging center. Symone Garcia APRN IMG MAMMO ORDERAB LES from Last 3 Months or Most Recently Relevant to Health Maintenance Advance Directives Documents on File Type Date Recorded Patient Range Feeder Expl anation Advance Directives and Livin g Will 09/11/2022 11:52 AM 09/11/2022 * Attempt Cardiopulmonary Resuscitation - Inpatient (Latest Code Status on File) Date Activated Date Inactivated Comments 10/14/2023 10:58 AM 10/15/2023 4:35 AM Question Answer Comments Code Status decision made by: Patient * Attempt Cardiopulmonary Resuscitation - Inpatient Date Activated Date Inactivated Comments 09/17/2023 11:57 AM 09/18/2023 4:33 AM Question Answer Comments Code Status decision made by: Patient * Attempt Cardiopulmonary Resuscitation - Inpatient Date Activated Date Inactivated Comments 07/09/2023 1:10 PM 07/10/2023 4:33 AM Question Answer Comments Code Status decision made by: Patient * Attempt Cardiopulmonary Resuscitation - Inpatient Date Activated Date Inactivated Comments 04/06/2023 9:22 AM 04/07/2023 4:34 AM Question Answer Comments Code Status decision made by: Patient * Attempt Cardiopulmonary Resuscitation - Inpatient Date Activated Date Inactivated Comments 03/10/2023 3:16 PM 03/11/2023 4:33 AM Question Answer Comments Code Status decision made by: Patient Care Teams Online Marketer Relationship Specialty Start Date End Date Ana Gillespie APRN [address] [place] [address] PCP - General Family Medicine 02/03/19
--- OUTSIDE RECORDS SUMMARY | 2023-12-03 14:53 | XMS_ITS | Encounter Summary ---
Author Organization [facility] Address [facility] [place] [address] Care Team Providers Care Offshore Diver Name Role Phone Ana Gillespie VAUGHN Primary Care Provider [phone] Encounter Details Date Type Department Care Team (Late st Contact Info) Description 11/05/2023 8:30 AM EDT - 11/05/2023 9:00 AM EDT [place] [address] David Dejesus MD [facility] [place] [address] EGD-DILATATION BY SOUND OR BOUGIE, SINGLE OR MULTIPLE PASSES (WRVU 1.28) Social History Tobacco Use Types Packs/Day Years [...] Sign Reading Time Taken Comments Blood Pressure 120/62 11/05/2023 7:21 AM EDT Pulse 54 11/05/2023 7:21 AM EDT Temperature 36.7 ??C (98.1 ??F) 11/05/2023 7:21 AM ED T Respiratory Rate 18 11/05/2023 7:21 AM EDT Oxygen Saturation 99% 11/05/2023 7:21 AM EDT Inhaled Oxygen Concentration - - [...] better as expected. Wednesday-Wednesday Same Day Endo [phone]-[id number] Otherwise contact [phone] and ask to speak to the general counsel prison classification counselor Follow-up care is a fam part of [...] 180 tablet 3 10/20/2021 Blood Sugar Diagnostic (KogetoTOUCH ULTRA TEST) StripIndications:Type 2 diabetes mellitus, uncontrolled [...] meter kit. 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 documented in this encounter H&P Notes [...] glucose meter kit. 1 each 0 Insulin [place], Disposable, (BD INSULIN PEN NEEDLE UF MINI) 31 x 3/16 Needle 1 [place] [facility] [place]; Combo Route) route 3 [...] 12/07/2023 1:00 PM EDT Appointment [place] [address] 12/07/2023 2:00 PM EDT Office [place] [address] Geronimo Mojica MD [facility] [place] [address] 12/27/2023 11:30 AM EDT [place] [address] Noe Cuenca MD [facility] [place] [address] Scheduled Procedures Name Priority Associated Diagnoses Date/Ti me EGD, UPPER GI ENDOSCOPY (WRV U 2.09) Peptic stricture of esophagus documented as of this encounter Procedures Procedure Name Priority Date/Time Associated Diagnosis Comments Up Gi Endoscopy, Dilatn W Guide (97731) 11/05/2023 8:34 AM EDT Peptic stricture of esophagus Dilate Esophagus (13719) 11/05/2023 8:34 AM EDT Peptic stricture of esophagus POCT GLUCOSE Routine 11/05/2023 7:50 AM EDT documented in this encounter Results * POCT Glucose (11/05/2023 7:50 AM EDT) POC Glucose 86 65 - 199 mg/dL [facility] Comment: Supplemental ranges: <140 mg/dL before meals <180 mg/dL all other times of the day Blood 11/05/2023 7:50 AM EDT 11/05/2023 7:50 AM EDT David Dejesus MD POINT OF CARE TEST [place] [address] documented in this encounter Visit Diagnoses Diagnosis [...] CRNA) documented in this encounter Care Teams Offshore Diver Relationship Specialty Start Date End Date Ana Gillespie APRN [address] [place] [address] PCP - General Family Medicine 02/03/19 documented as of this encounter
--- OUTSIDE RECORDS SUMMARY | 2023-12-03 14:53 | XMS_ITS | Encounter Summary ---
Author Organization [facility] [place] [address] Care Team Providers Care Thermodynamics Engineer Name Role Phone Ana Gillespie VAUGHN Primary Care Provider [phone] Encounter Details Date Type Department Care Team (Late st Contact Info) Description 10/27/2023 [facility] [place] [id number] Parris Maravilla Social History Tobacco Use Types Packs/Day Years [...] on file documented as of this encounter Miscellaneous Notes * Telephone Encounter - Parris Maravilla - 10/27/2023 11:43 AM EDT Jennifer Irving [id number] Diagnosis/Indication: petic stricture - follow-up dilation in 2-3 weeks Please review patient chart to confirm if previous Endoscopy procedure was performed within system. If yes, take note of Anesthesia type used. If previous procedure found, and with MAC/propofol Anesthesia support was used, schedule this procedure with Anesthesia and skip the Anesthesia portion of questions. If not performed within system, not performed at all, or performed with IVCS, ask Anesthesia questions. SCHEDULING QUESTIONS (ask all patient these questions) Have you ever had a/an Upper Endoscopy before? Yes: Date 10/07/23 If yes, did you have any problems with the procedure (such as waking up during the procedure, pain or difficulties afterwards, etc.)? No What type of sedation was used: General Anesthesia (ASK ONLY FOR COLONOSCOPY PROCEDURES) Are you aware, or have you ever been told that you had a poor prep or failed prep with a previous colonoscopy? No If yes, assign the Extended MiraLAX Prep (ASK ONLY FOR COLONOSCOPY PROCEDURES) Do you have an ongoing history of constipation? (E.g., hard stools, >2 days without a bowel movement, straining or difficulty passing stool) No If yes, assign the Extended MiraLAX Prep Do you take any blood thinners or have you been diagnosed with a bleeding disorder that increases your risk of bleeding with procedures? No Do you have a Pacemaker or Defibrillator device? If yes, send pool message to Cardiology with patient information and date or procedure. No Do you have diabetes? If yes, call PCP/managing provider to discuss use of prep and any questions or concerns related to. Yes: Controlled by diet or medication? Both If yes, assign the Extended MiraLAX Prep Do you take any iron supplements or vitamins that contain iron? Yes Iron Do you have a preference regarding the gender of your provider? Yes Dejesus ANESTHESIA QUESTIONS (YES to any question, please book with Anesthesia support) Have you ever been diagnosed with Pulmonary Hypertension and/or Congential Heart Disease? No Have you been diagnosed with A-Fib (atrial fibrillation) that is NOT being well controled with medications? No Have you ever had an allergic or adverse reaction to Fentanyl or Versed? No Have you had a problem with sedation or anesthesia? (Waking up during procedure, extreme confusion after, etc.) No Do you have a diagnosis of Obstructive Sleep Apnea that requires the use of a c- pap machine? No Do you use an oxygen tank at home? Yes Do you use a rescue inhaler more than twice per day? (COPD, severe asthma) No Do you experience breathing problems when you lay flat for a period of time? Yes Do you regularly take prescription opioid pain medications on a daily basis? (Includes oxycodone, Percocet, Suboxone, methadone, etc.) No If yes, assign the Extended MiraLAX Prep SCHEDULING CONFIRMATIONS: Please note any and all parts of your conversation with the patient here. We offer all new patients an opportunity to have an appointment with one of our associate care providers to learn more about your upcoming procedure, ask questions and get answers. These appointmentsare offered via telehealth. Would you be interested in scheduling this appointment? (Only ask if NEW referral patient; skip this question if GI provider ordered the procedure.) No Is there any other information or concerns you would like to us to share with your care team in relation to your upcoming scheduled procedure? No You must have a responsible alliance party who will drive you to your procedure, stay on campus for the entire duration of your procedure, and drive you home from your procedure. Who will likely be your rolloff driver for the procedure? *Please Verify the height and weight, and adjust if height and/or weight have changed* Estimated body mass index is 28.51 kg/m?? as calculated from the following: Height as of 06/01/23: 152.4 cm (5'). Weight as of 06/01/23: 66.2 kg (146 lb). *Patient must be scheduled for Anesthesia support if BMI is 40 or above* Age:63 y.o. documented in this encounter Plan of Treatment Upcoming Encounters Date Type Department Care Team (Late st Contact Info) Description 12/07/2023 1:00 PM EDT Appointment [place] [address] 12/07/2023 2:00 PM EDT Office [place] [address] Geronimo Mojica MD [facility] [place] [address] 12/27/2023 11:30 AM EDT Office [place] [address] Noe Cuenca MD [facility] [place] [address] Scheduled Procedures Name Priority Associated Diagnoses Date/Ti me EGD, UPPER GI ENDOSCOPY (WRV U 2.09) Peptic stricture of esophagus documented as of this encounter Visit Diagnoses Not on filedocumented in this encounter Care Teams Thermodynamics Engineer Relationship Specialty Start Date End Date Ana Gillespie APRN [address] [place] [address] PCP - General Family Medicine 02/03/19 documented as of this encounter
--- OUTSIDE RECORDS SUMMARY | 2023-12-03 14:53 | XMS_ITS | Encounter Summary ---
Author Organization [facility] [place] [address] Care Team Providers Care Stencil Inspector Name Role Phone Ana Gillespie VAUGHN Primary Care Provider [phone] Reason for Referral * Diagnostic Test (Routine) - Closed Specialty Diagnoses / Procedures Referred By Esperanza t Referred To Contact Radiology Diagnoses Problem with gastrostomy tube Farrell's esophagus with high grade dysplasia Farrell's esophagus with low grade dysplasia Procedures IR G-Tube Check/Change Hang Cooper PA [facility] [place] [address] [place] [address] Referral ID Status Reason Start Date Expiration Date V isits Requested Visits Authorized [id number] Closed Specialty Service Requested 09/23/2023 03/25/2025 1 1 Reason for Visit * Diagnostic Test (Routine) - Closed Specialty Diagnoses / Procedures Referred By Esperanza t Referred To Contact Radiology Diagnoses Problem with gastrostomy tube Farrell's esophagus with high grade dysplasia Farrell's esophagus with low grade dysplasia Procedures IR G-Tube Check/Change Hang Cooper PA [facility] [place] [address] [place] [address] Referral ID Status Reason Start Date Expiration Date V isits Requested Visits Authorized [id number] Closed Specialty Service Requested 09/23/2023 03/25/2025 1 1 Encounter Details Date Type Department Care Team (Latest Contact Info) Description 10/14/2023 10:11 AM EDT - 10/14/2023 11:59 PM EDT Hospital [place] [address] Geronimo Chambers, [facility] [place] [address] Problem with gastrostomy tube; Farrell's esophagus with [...] Sign Reading Time Taken Comments Blood Pressure 110/49 10/14/2023 12:30 PM EDT Pulse 59 10/14/2023 11:14 AM EDT Temperature 37.3 ??C (99.2 ??F) 10/14/2023 11:14 AM E DT Respiratory Rate 16 10/14/2023 12:30 PM EDT Oxygen Saturation 98% 10/14/2023 12:30 PM EDT Inhaled Oxygen Concentration - - Weight - - Height - - Body Mass Index - - documented in this encounter Medications at Time [...] meter kit. 1 each 0 12/14/2014 Insulin [place], Disposable, (BD INSULIN PEN NEEDLE UF MINI) 31 x 3/16 NeedleIndications:Josefina betes mellitus type 2, uncontrolled 1 Device by Misc.(Non-Drug; Combo Route) route 3 times daily as needed. 100 each 11 12/13/2014 documented as of this encounter Progress Notes * Sergey Moraes RN - 10/10/2023 10:50 AM EDT ANGIO NURSING DATABASE Name: Jennifer Irving Date of : 1960 AGE: 63 y.o. Address: [address] [address] (home) Mobile: Telephone Information: Referring Provider: Hang Cooper REASON FOR VISIT: Order Questions Answers Where will study be performed? [facility] Radiology [120] To be scheduled Next available after expected date Is the patient on anticoagulant / antiplatelet therapy ? No Reason for exam and clinical history: GERD, esophagitis, enteral access dependent Exam/Procedure requested: Recent outside exchange to non-EnFit 16 F catheter. Requesting exchange back to EnFit style. Does patient require sedation? 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 Onto table supine. All monitors, O2, safety strap in place. Meds per protocol. Laboratory Results: Lab Results Component Value Date INR 2.0 08/15/2022 Lab Results Component Value Date CREATININE 0.62 (L) 09/25/2022 Lab Results Component Value Date K 4.6 09/25/2022 Lab Results Component Value Date PLATELET 222 09/23/2022 documented in this encounter H&P Notes * Azeem Alarcon MD - 10/14/2023 7:29 AM EDT INTERVENTIONAL RADIOLOGY FOCUSED H&P and PRE-PROCEDURE NOTE: PCP: Ana Gillespie APRN Planned procedure: Gastrostomy catheter exchange Procedure indication: conversion back to EnFit style catheter. IR workflow: Procedure request received through Interventional Radiology eDH order queue. There are no answered order specific questions. History of Present Illness: Per chart review, Jennifer Irving is a 63 y.o. female with PMH of left femoral neck fracture, bipolar, alcohol use disorder, chronic pancreatitis, GERD complicated byesophagitis and Farrell's esophagus s/p G-tube placement (09/11/22) with most recent exchange on 05/09/23 - 16Fr, now with reports of leaking around catheter with tube feeds, who presents to Interventional Radiology to undergo check/exchange of G-tube. Patient's reports that she was evaluated at [facility] for possible PNA, and the G-tube became dislodged while there, replaced at bedside, and balloon was inflated without complication. She was discharged on 07/06, and leaking was first noted after the first tube feed while at home. has drain sponges around the G-tube currently. Remainder of patient's medical and surgical history, allergies, medications, and social/family history obtained below as previously outlined in patient's medical record. Seen in IR recovery in followup to G-tube issues. Exchanged by IR on 09/16 due to occlusion. [place]ed to [place] where tube could not be flushed. Exchanged [...] for conversion back to EnFit style catheter. 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 Past Medical History: Diagnosis Date Bipolar disorder 02/12/2022 Past Surgical History: Procedure Laterality Date IR G-TUBE CHECK/CHANGE 11/27/2022 IR G-Tube Check/Change 11/27/2022 Hang Cooper PA [facility] INTERVENTIONL RAD IR G-TUBE CHECK/CHANGE 03/10/2023 IR G-Tube Check/Change 03/10/2023 Geronimo Chambers DO [facility] INTERVENTIONL RAD IR G-TUBE CHECK/CHANGE 04/06/2023 IR G-Tube Check/Change 04/06/2023 Gavin Carrillo MD [facility] INTERVENTIONL RAD IR G-TUBE CHECK/CHANGE 05/09/2023 IR G-Tube Check/Change [facility] INTERVENTIONL RAD IR G-TUBE CHECK/CHANGE 07/09/2023 IR G-Tube Check/Change [facility] INTERVENTIONL RAD IR G-TUBE CHECK/CHANGE 09/17/2023 IR G-Tube Check/Change 09/17/2023 Hang Cooper PA [facility] INTERVENTIONL RAD IR G-TUBE PLACEMENT 09/11/2022 IR G-Tube Placement 09/11/2022 Moustapha Hart MD [facility] INTERVENTIONL RAD IR SUTURE RELEASE 09/25/2022 IR Suture Release 09/25/2022 Yoselin Ghosh PA [facility] INTERVENTIONL RAD PERCUTANEOUS GASTROSTOMY N/A 09/11/2022 PERCUTANEOUS GASTROSTOMY performed by Aiden Flores MD at [facility] CATY PRO COLONOSCOPY, BIOPSY N/A 03/20/2016 COLONOSCOPY FLEXIBLE, WITH BX performed by David Dejesus MD at [facility] ENDOSCOPY PRO COLONOSCOPY, DIAGNOSTIC N/A 03/01/2020 COLONOSCOPY, DIAGNOSTIC performed by David Dejesus MD at [facility] ENDOSCOPY PRO ENDOSCOPIC US EXAM, ESOPH N/A 03/31/2022 UPPER EUS- ENDOSCOPIC ULTRASOUND performed by David Dejesus MD at [facility] ENDOSCOPY PRO UP GI ENDOSCOPY, BALL DIL, 30MM N/A 12/24/2022 EGD,WITH DILATION ESOPHAGUS WITH BALLOON,< 30 MM (WRVU 2.67) performed by David Dejesus MDat [facility] ENDOSCOPY PRO UP GI ENDOSCOPY, BALL DIL, 30MM N/A 01/12/2023 EGD,WITH DILATION ESOPHAGUS WITH BALLOON,< 30 MM (WRVU 2.67) performed by David Dejesus [facility] ENDOSCOPY PRO UP GI ENDOSCOPY, BALL DIL, 30MM N/A 02/26/2023 EGD,WITH DILATION ESOPHAGUS WITH BALLOON,< 30 MM (WRVU 2.67) performed by David Dejesus [facility] ENDOSCOPY PRO UP GI ENDOSCOPY, BALL DIL, 30MM N/A 03/16/2023 EGD,WITH DILATION ESOPHAGUS WITH BALLOON,< 30 MM (WRVU 2.67) performed by David Dejesus [facility] ENDOSCOPY PRO UP GI ENDOSCOPY, BALL DIL, 30MM N/A 03/30/2023 EGD,WITH DILATION ESOPHAGUS WITH BALLOON,< 30 MM (WRVU 2.67) performed by David Dejesus [facility] ENDOSCOPY PRO UP GI ENDOSCOPY, BALL DIL, 30MM N/A 04/30/2023 EGD,WITH DILATION ESOPHAGUS WITH BALLOON,< 30 MM (WRVU 2.67) performed by David Dejesus [facility] ENDOSCOPY PRO UP GI ENDOSCOPY, BALL DIL, 30MM N/A 06/01/2023 EGD,WITH DILATION ESOPHAGUS WITH BALLOON,< 30 MM (WRVU 2.67) performed by David Dejesus [facility] ENDOSCOPY PRO UP GI ENDOSCOPY, BALL DIL, 30MM N/A 08/02/2023 EGD,WITH DILATION ESOPHAGUS WITH BALLOON,< 30 MM (WRVU 2.67) performed by David Dejesus [facility] ENDOSCOPY PRO UP GI ENDOSCOPY, DILATN W GUIDE N/A 10/07/2023 EGD-ESOPHOGEAL DILATATION OVER GUIDE WIRE (WRVU 2.91) performed by David Dejesus MD at [facility] ENDOSCOPY PRO UPPER GI ENDOSCOPY, BIOPSY N/A 04/03/2014 UPPER GASTROINTESTINAL ENDOSCOPY,WITH BIOPSY SINGLE OR MULTIPLE performed by David Dejesus [facility] ENDOSCOPY PRO UPPER GI ENDOSCOPY, BIOPSY N/A 03/20/2016 EGD WITH BIOPSY performed by David Dejesus MD at [facility] ENDOSCOPY PRO UPPER GI ENDOSCOPY, BIOPSY N/A 11/22/2018 EGD WITH BIOPSY (WRVU 2.49) performed by David Dejesus MD at [facility] ENDOSCOPY PRO UPPER GI ENDOSCOPY, BIOPSY N/A 03/01/2020 UPPER GASTROINTESTINAL ENDOSCOPY,WITH BIOPSY SINGLE OR MULTIPLE (WRVU 2.49) performed by David Dejesus MD at [facility] ENDOSCOPY PRO UPPER GI ENDOSCOPY, BIOPSY N/A 09/23/2021 EGD WITH BIOPSY (WRVU 2.49) performed by David Dejesus MD at [facility] ENDOSCOPY PRO UPPER GI ENDOSCOPY, BIOPSY N/A 03/31/2022 EGD WITH BIOPSY (WRVU 2.49) performed by David Dejesus MD at [facility] ENDOSCOPY PRO UPPER GI ENDOSCOPY, BIOPSY N/A 07/03/2022 EGD WITH BIOPSY (WRVU 2.49) performed by David Dejesus MD at [facility] ENDOSCOPY PRO UPPER GI ENDOSCOPY, DIAGNOSTIC N/A 04/03/2014 EGD, UPPER GI ENDOSCOPY performed by David Dejesus MD at [facility] ENDOSCOPY PRO UPPER GI ENDOSCOPY, DIAGNOSTIC N/A 03/01/2020 EGD, UPPER GI ENDOSCOPY performed by David Dejesus MD at [facility] ENDOSCOPY PRO UPPER GI ENDOSCOPY, DIAGNOSTIC N/A 09/09/2022 EGD, UPPER GI ENDOSCOPY (WRVU 2.09) performed by Ayo Russ MD at [facility] MAIN OR Medications: Current Outpatient Medications on File Prior [...] daily. 180 tablet 3 Blood Sugar Diagnostic (Let's Jock ULTRA TEST) Strip 1 each by Other [...] glucose meter kit. 1 each 0 Insulin [place], Disposable, (BD INSULIN PEN NEEDLE UF MINI) 31 x 3/16 Needle 1 [place] [facility] [place]Non-Drug; Combo Route) route 3 times daily as needed. 100 each 11 No current facility-administered medications on file prior to encounter. Allergies: Meperidine hcl and Metformin Social History and Habits: Social History Socioeconomic History Marital status: Spouse name: Not on file Number of children: Not on file Years of education: Not on file Highest education level: Not on file Occupational History Not on file Tobacco Use Smoking status: Former Current packs/day: 0.00 Types: Cigarettes Start date: 02/26/2010 Quit date: 02/26/2021 Years since quittin.6 Smokeless tobacco: Never Substance and Sexual Activity Alcohol use: Not Currently Drug use: Never Sexual activity: Yes Partners: Male Other Topics Concern Not on file Social History Narrative Not on file Social Determinants of Health Financial Resource Strain: Not on file Food Insecurity: Not on file Transportation Needs: Not on file Physical Activity: Not on file Intimate Partner Violence: Not on file Housing Stability: Not on file Significant Family History: No family history on file. Pertinent ROS: as per HPI Labs: Lab Results Component Value Date WBC 6.8 09/23/2022 HCT 38.4 09/23/2022 PLATELET 222 09/23/2022 INR 2.0 08/15/2022 BUN 32 (H) 09/25/2022 CREATININE 0.62 (L) 09/25/2022 ALKPHOS 213 (H) 08/20/2022 AST 39 (H) 08/20/2022 ALBUMIN 2.5 (L) 08/20/2022 BILIDIR 0.1 08/20/2022 BILITOT <0.2 (L) 08/20/2022 ALT 20 08/20/2022 PROT 5.6 (L) 08/20/2022 K 4.6 09/25/2022 Physical Exam: Pending (to be performed in angio the day of procedure) ASA: Pending (to be assessed in angio the day of procedure) Mallampati Class: Pending (to be assessed in angio the day of procedure) Assessment: 63 y.o. female with PMH of left femoral neck fracture, bipolar, alcohol use disorder, chronic pancreatitis, GERD complicated by esophagitis and Farrell's esophagus s/p G-tube placement (09/11/22) Plan: conversion back to EnFit style catheter. No data recorded 10/14/2023 documented in this encounter Procedure Notes * Moustapha Hart MD - 10/14/2023 12:44 PM EDT IR PROCEDURE NOTE Procedure: Gastrostomy tube exchange. [...] Patient's reports that she was evaluated at [facility] for possible PNA, and the G-tube became dislodged while there, replaced at bedside, and balloon was inflated without complication. She was discharged on 07/06, and leaking was first noted after the first tube feed while at home. has drain sponges around the G-tube currently. Remainder of patient's medical and surgical history, allergies, medications, and social/family history obtained below as previously outlined in patient's medical record. Seen in IR recovery in followup to G-tube issues. Exchanged by IR on 09/16 due to occlusion. [place]ed to [place] where tube could not be flushed. Exchanged [...] was positioned supine on the procedure table. Existing gastrostomy tube and adjacent skin were prepped and draped, maximal sterile barrier technique was used throughout the procedure. Contrast injection via the existing gastrostomy tube showed tube tip within the stomach. A guidewire was advanced through the gastrostomy tube and coiled in the stomach under fluoroscopy. The retention balloon was deflated and the gastrostomy tube removed over the wire. A new16 [place] balloon retained nonlow-profile gastrostomy tube was then placed over the wire. Retentionballoon was filled with 5 cc of sterile water. Contrast injection via the tube showed tip within the stomach. Medications: 2% lidocaine gel topical. Est Blood Loss: <5cc. Complications: No immediate. Impression: Gastrostomy tube exchange, now with 16 Fr balloon retained non low- profile with ENFit connector, ready for use. Resident/Fellow: None. Attending: Dr. Hailey Meredith performed this procedure. documented in this encounter Plan of Treatment Upcoming Encounters Date Type Department Care Team (Late st Contact Info) Description 12/07/2023 1:00 PM EDT [place] [address] 12/07/2023 2:00 PM EDT Office [place] [phone] Geronimo Mojica MD [facility] [place] [address] 12/27/2023 11:30 AM EDT [place] [phone] Noe Cuenca MD [facility] [place] [address] (work) Scheduled Procedures Name Priority Associated Diagnoses Date/Ti dc EGD, UPPER GI ENDOSCOPY (WRV U 2.09) Peptic stricture of esophagus documented as of this encounter Procedures Procedure Name Priority Date/Time Associated Diagnosis Comments IR G-TUBE CHECK/CHANGE Routine 10/14/2023 12:48 PM EDT Problem with gastrostomy tube Farrell's esophagus with high grade dysplasia Farrell's esophagus with low grade dysplasia documented in this encounter Results * IR G-Tube Check/Change [...] Patient's reports that she was evaluated at [facility] for possible PNA, and the G-tube became [...] 09/16 due to occlusion. Patient traveled to [place] where tube could not be flushed. Exchanged [...] removed over the wire. ??A new 16 [place] balloon retained nonlow-profile gastrostomy tube was then [...] Visit Diagnoses Diagnosis Problem with gastrostomy tube Farrell's esophagus with high grade dysplasia Farrell's esophagus Farrell's esophagus with low grade dysplasia Farrell's esophagus documented in this encounter Administered Medications Inactive Administered Medications - up to 3 most recent administrations Medication Order MAR Action Action Date Dose Rate Site lidocaine (Glydo) 2 % gel 6 mL 6 mL, Topical (Top), EVERY 4 HOURS PRN, Starting on Betty 10/14/23 at 1113, Until Betty 10/14/23 at 1250, Pain, For use in Interventional Radiology (IR) only for procedure with direct provider supervision and verbal order., Angio/IR (Intra-Procedure), Routine Given 10/14/2023 12:30 PM EDT 6 mLs documented in this encounter Care Teams Stencil Inspector Relationship Specialty Start Date End Date Ana Gillespie APRN [address] [place] [address] PCP - General Family Medicine 02/03/19 documented as of this encounter
--- OUTSIDE RECORDS SUMMARY | 2023-12-03 14:53 | XMS_ITS | Encounter Summary ---
Author Organization Formerly [facility] [place] [address] Care Team Providers Care Archeologist Classical Name Role Phone Ana Gillespie APRN Primary Care Provider [phone] Encounter Details Date Type Department Care Team (Late st Contact Info) Description 10/07/2023 10:41 AM EDT Anesthesia [place] [address] Alex Conley MD [facility] [address] [place] [address] Valerie Vital CRNA [facility] [place] [address] Anesthesia Record Procedure Summary Procedure Name Responsible Anesthesiologist Anesthesia Start Time Anesthesia Stop Time EGD-ESOPHOGEAL DILATATION OVER GUIDE WIRE (WRVU 2.91) (Trunk) Alex Conley MD 10/07/23 1041 10/07/23 1123 Events Date Time Event Comment 10/07/2023 1015 1041 AN Verify 1041 Start 1041 An Start Data 1052 An Induction 1054 An Intubation 1054 Anesthesia Ready 1113 Extubation/LMA Out 1117 an stop data 1122 Recovery or ICU Handoff Sayra ent care was transferred to the destination unit staff after review of the patient's medical history, current anesthetic/surgical status and plan, according to the Provider Handoff Checklist. 1123 Stop Meds Name Total IV Lidocaine 50 mg Propofol 150 mg Ondansetron 4 mg NORepinephrine 12 mcg ciprofloxacin 400 mg succinylcholine 80 mg lactated ringers 200 mL * Agents Name O2 * Blood No blood administrations on file. Lines, Drains, and Airways Type Details Placement Removal Enterostomy Tube 03/10/23; 1618; gastrostomy tube with balloon (16F); LUQ (left upper quadrant); feeding; MD Trish Wallace-Tube exchange 16Fr. 07/09/23, 09/17/23 exchanged with 16fr by ROSLYN Cooper 10/14/23 Tube exchange 16 fr, MD Hart 03/10/23 1618 by Sergey Jordan RN PIV 10/07/23; 1041; oosy-jyn-iytynw catheter system; 20 gauge, 1 in length; cephalic vein (lateral side of arm), right; eva; intradermal injection; 10/07/23; 1152 10/07/23 1041 by Jennifer Garibay RN 10/07/23 1152 by Parris Quinn RN ETT Mask Ventilation: No t Attempted (0); ETT Size: 7 mm; Mac Blade: 3; Notes: Pre-O2, RSI; Attempts: 1; Laryngoscopy Grade: 1; ETT Placement Verified By: Capnometry, Auscultation; Secured at Teeth: 21 cm; Inserted by: Socorro Pettit CRNA; Removal Date: 10/07/23; Removal Time: 1113 10/07/23 1054 by Ede Pettit CRNA 10/07/23 1113 by Ede Pettit CRNA documented in this encounter Social History Tobacco [...] OR Notes * Anesthesia Postprocedure Evaluation - Alex Conley MD - 10/07/2023 6:15 PM EDT Department of Anesthesiology Post-procedure Note Patient: Jennifer Irving Procedure Summary Date: 10/07/23 Room / Location: [facility] ENDO 1 / [facility] ENDOSCOPY Anesthesia Start: 1041 Anesthesia Stop: 112 Procedure: EGD-ESOPHOGEAL DILATATION OVER GUIDE WIRE (WRVU 2.91) (Trunk) Diagnosis: Peptic stricture of esophagus (shedule one month - peptic stricture dilation) Surgeons: David Dejesus MD Responsible Provider: Anesthesia Type: MAC ASA Status: 3 All Anesthesia Providers: Student Nurse Lithographer Apprentice: Zenia Montiel Vitals Value Taken Time BP 148/72 10/07/23 1140 Temp Pulse Resp 15 10/07/23 1140 SpO2 100 % 10/07/23 1148 Pain Level 0 10/07/23 1140 Vitals shown include unfiled device data. Patient Location: PACU/[facility] Level of Consciousness: Conscious but Sleepy Pain Management: Satisfactory Analgesia PONV: None Cardiovascular Status: At Baseline Respiratory Status: At Baseline Postoperative Fluid Status: Intravascular EUvolemia Possible Anesthetic Complications: NONE apparent at time of evaluation Final Primary Anesthesia Type: General (The anesthetic type performed was the same as planned.) Comments: * Anesthesia Preprocedure Evaluation - Alex Conley MD - 10/04/2023 8:50 PM EDT Pre-Anesthesia Evaluation for: Jennifer Irving a 63 y.o. female. Procedure(s): EGD, UPPER GI ENDOSCOPY (WRVU 2.09) Patient Active Problem List Diagnosis Date Noted ??? Stress-induced cardiomyopathy 01/15/2023 ??? 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 Bipolar disorder 02/12/2022 ??? BMI 37.0-37.9, adult 12/13/2014 ??? T2DM (type 2 diabetes mellitus) 12/12/2014 ??? GERD (gastroesophageal reflux disease) 03/15/2013 ??? Farrell's esophagus 03/15/2013 Past Medical History: Diagnosis Date ??? Bipolar disorder 02/12/2022 Past Surgical History: Procedure Laterality Date ??? IR G-TUBE CHECK/CHANGE 11/27/2022 IR G-Tube Check/Change 11/27/2022 Hang Cooper, PA [facility] RAD ??? IR G-TUBE CHECK/CHANGE 03/10/2023 IR G-Tube Check/Change 03/10/2023 Geronimo Chambers, DO [facility] RAD ??? IR G-TUBE CHECK/CHANGE 04/06/2023 IR G-Tube Check/Change 04/06/2023 Gavin Carrillo MD [facility] RAD ??? IR G-TUBE CHECK/CHANGE 05/09/2023 IR G-Tube Check/Change [facility] ??? IR G-TUBE CHECK/CHANGE 07/09/2023 IR G-Tube Check/Change [facility] ??? IR G-TUBE CHECK/CHANGE 09/17/2023 IR G-Tube Check/Change 09/17/2023 Hang Cooper PA [facility] ??? IR G-TUBE PLACEMENT 09/11/2022 IR G-Tube Placement 09/11/2022 Moustapha Hart MD [facility] ??? IR SUTURE RELEASE 09/25/2022 IR Suture Release 09/25/2022 Yoselin Ghosh PA [facility] RAD ??? PERCUTANEOUS GASTROSTOMY N/A 09/11/2022 PERCUTANEOUS GASTROSTOMY performed by Aiden Flores MD at [facility] CATY ??? PRO COLONOSCOPY, BIOPSY N/A 03/20/2016 COLONOSCOPY FLEXIBLE, WITH BX performed by David Dejesus MD at [facility] ENDOSCOPY ??? PRO COLONOSCOPY, DIAGNOSTIC N/A 03/01/2020 COLONOSCOPY, DIAGNOSTIC performed by David Dejesus MD at [facility] ENDOSCOPY ??? PRO ENDOSCOPIC US EXAM, ESOPH N/A 03/31/2022 UPPER EUS- ENDOSCOPIC ULTRASOUND performed by David Dejesus MD at [facility] ENDOSCOPY ??? PRO UP GI ENDOSCOPY, BALL DIL, 30MM N/A 12/24/2022 EGD,WITH DILATION ESOPHAGUS WITH BALLOON,< 30 MM (WRVU 2.67) [facility] PRO UP GI ENDOSCOPY, BALL DIL, 30MM N/A 01/12/2023 EGD,WITH DILATION ESOPHAGUS WITH BALLOON,< 30 MM (WRVU 2.67) performed by [facility]us [facility]at [facility] ENDOSCOPY ??? PRO UP GI ENDOSCOPY, BALL DIL, 30MM N/A 02/26/2023 EGD,WITH DILATION ESOPHAGUS WITH BALLOON,< 30 MM (WRVU 2.67) performed by David De[facility] ENDOSCOPY ??? PRO UP GI ENDOSCOPY, BALL DIL, 30MM N/A 03/16/2023 EGD,WITH DILATION ESOPHAGUS WITH BALLOON,< 30 MM (WRVU 2.67) performed by David Dejesus [facility] ENDOSCOPY ??? PRO UP GI ENDOSCOPY, BALL DIL, 30MM N/A 03/30/2023 EGD,WITH DILATION ESOPHAGUS WITH BALLOON,< 30 MM (WRVU 2.67) performed by David Dejesus [facility] ENDOSCOPY ??? PRO UP GI ENDOSCOPY, BALL DIL, 30MM N/A 04/30/2023 EGD,WITH DILATION ESOPHAGUS WITH BALLOON,< 30 MM (WRVU 2.67) performed by David Dejesus [facility] ENDOSCOPY ??? PRO UP GI ENDOSCOPY, BALL DIL, 30MM N/A 06/01/2023 EGD,WITH DILATION ESOPHAGUS WITH BALLOON,< 30 MM (WRVU 2.67) performed by David Dejesus [facility] ENDOSCOPY ??? PRO UP GI ENDOSCOPY, BALL DIL, 30MM N/A 08/02/2023 EGD,WITH DILATION ESOPHAGUS WITH BALLOON,< 30 MM (WRVU 2.67) performed by David Dejesus [facility] ENDOSCOPY ??? PRO UPPER GI ENDOSCOPY, BIOPSY N/A 04/03/2014 UPPER GASTROINTESTINAL ENDOSCOPY,WITH BIOPSY SINGLE OR MULTIPLE performed by David Dejesus [facility] ENDOSCOPY ??? PRO UPPER GI ENDOSCOPY, BIOPSY N/A 03/20/2016 EGD WITH BIOPSY performed by David Dejesus MD at [facility] ENDOSCOPY ??? PRO UPPER GI ENDOSCOPY, BIOPSY N/A 11/22/2018 EGD WITH BIOPSY (WRVU 2.49) performed by David Dejesus MD at [facility] ENDOSCOPY ??? PRO UPPER GI ENDOSCOPY, BIOPSY N/A 03/01/2020 UPPER GASTROINTESTINAL ENDOSCOPY,WITH BIOPSY SINGLE OR MULTIPLE (WRVU 2.49) performed by David Dejesus MD at [facility] ENDOSCOPY ??? PRO UPPER GI ENDOSCOPY, BIOPSY N/A 09/23/2021 EGD WITH BIOPSY (WRVU 2.49) performed by David Dejesus MD at [facility] ENDOSCOPY ??? PRO UPPER GI ENDOSCOPY, BIOPSY N/A 03/31/2022 EGD WITH BIOPSY (WRVU 2.49) performed by David Dejesus MD at [facility] ENDOSCOPY ??? PRO UPPER GI ENDOSCOPY, BIOPSY N/A 07/03/2022 EGD WITH BIOPSY (WRVU 2.49) performed by David Dejesus MD at [facility] ENDOSCOPY ??? PRO UPPER GI ENDOSCOPY, DIAGNOSTIC N/A 04/03/2014 EGD, UPPER GI ENDOSCOPY performed by David Dejesus MD at [facility] ENDOSCOPY ??? PRO UPPER GI ENDOSCOPY, DIAGNOSTIC N/A 03/01/2020 EGD, UPPER GI ENDOSCOPY performed by David Dejesus MD at [facility] ENDOSCOPY ??? PRO UPPER GI ENDOSCOPY, DIAGNOSTIC N/A 09/09/2022 EGD, UPPER GI ENDOSCOPY (WRVU 2.09) performed by Ayo Russ MD at [facility] MAIN OR Social History Tobacco Use ??? [...] Physical Exam: Preprocedure Vitals Current as of 10/04/232049 No BP, pulse, respiration, SpO2, or temperature recorded. Height: Weight: BMI: IBW: Airway Assessment: Mallampati: II TM distance: >3 FB Neck ROM: full Cardiovascular Assessment: Rhythm: regular Rate: normal Pulmonary Assessment: breath sounds clear to auscultation Dental Assessment: - normal exam Misc Assessment: Last Filed Perioperative Cognitive Screening None Anesthesia Plan: ASA 3 MAC, with a(n) intravenous induction 63F with PMHx of GERD, Farrell's, T2DM, obesity (BMI 28), bipolar disorder, neuroleptic-induced parkinsonism, stress cardiomyopathy (EF 32%), former smoker with peptic stricture of esophagus presenting for repeat EGD and dilation.last procedure was cancelled. AnesHx: Tolerated multiple prior procedures with MAC, however required ETT for prior 2 procedures due to food in esophagus and h/o aspiration PNA. G1v MAC 3 CVHx: ECHO 08/19/22: Interpretation Summary -Left ventricular systolic function is moderately reduced. The left ventricular ejection fraction is 32% by Dahl's biplane. The apical portions of the LV remain akinetic with preservation of the basal segments. There is no apical thrombus seen with echo enhancing agent. -RV systolic function is preserved. -There is no significant valve disease. Allergies reviewed. Meds reviewed. No anticoagulants. ON JARDIANCE Addendum 10/07/2023 (MD Yael): as above, no sig interval change. Frail appearing 63yo. Plan ETT Region - Other Informed Consent: Anesthetic plan and risks discussed with patient. Plan discussed with CRIMINAL PROFILER. Anesthesia Screening * Anesthesia Preprocedure Evaluation - Adrianna Barron MD - 09/13/2023 6:11 PM EDT Pre-Anesthesia Evaluation for: Jennifer Irving a 63 y.o. female. Procedure(s): [facility], [facility] Patient Active Problem List Diagnosis Date Noted ??? Stress-induced cardiomyopathy 01/15/2023 ??? 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 Bipolar disorder 02/12/2022 ??? BMI 37.0-37.9, adult 12/13/2014 ??? T2DM (type 2 diabetes mellitus) 12/12/2014 ??? GERD (gastroesophageal reflux disease) 03/15/2013 ??? Farrell's esophagus 03/15/2013 Past Medical History: Diagnosis Date ??? Bipolar disorder 02/12/2022 Past Surgical History: Procedure Laterality Date ??? IR G-TUBE CHECK/CHANGE 11/27/2022 IR G-Tube Check/Change 11/27/2022 Hang Cooper, ROSLYN [facility] RAD ??? IR G-TUBE CHECK/CHANGE 03/10/2023 IR G-Tube Check/Change 03/10/2023 Geronimo Chambers, DO [facility] RAD ??? IR G-TUBE CHECK/CHANGE 04/06/2023 IR G-Tube Check/Change 04/06/2023 Gavin Carrillo MD [facility] ??? IR G-TUBE CHECK/CHANGE 05/09/2023 IR G-Tube Check/Change [facility] ??? IR G-TUBE CHECK/CHANGE 07/09/2023 IR G-Tube Check/Change [facility] ??? IR G-TUBE PLACEMENT 09/11/2022 IR G-Tube Placement 09/11/2022 Moustapha Hart MD [facility] ??? IR SUTURE RELEASE 09/25/2022 IR Suture Release 09/25/2022 Yoselin Ghosh PA [facility] ??? PERCUTANEOUS GASTROSTOMY N/A 09/11/2022 PERCUTANEOUS GASTROSTOMY performed by Aiden Flores MD at [facility] CATY ??? PRO COLONOSCOPY, BIOPSY N/A 03/20/2016 COLONOSCOPY FLEXIBLE, WITH BX performed by David Dejesus MD at [facility] ENDOSCOPY ??? PRO COLONOSCOPY, DIAGNOSTIC N/A 03/01/2020 COLONOSCOPY, DIAGNOSTIC performed by David Dejesus MD at [facility] ENDOSCOPY ??? PRO ENDOSCOPIC US EXAM, ESOPH N/A 03/31/2022 UPPER EUS- ENDOSCOPIC ULTRASOUND performed by David Dejesus MD at [facility] ENDOSCOPY ??? PRO UP GI ENDOSCOPY, BALL DIL, 30MM N/A 12/24/2022 EGD,WITH DILATION ESOPHAGUS WITH BALLOON,< 30 MM (WRVU 2.67) performed by David Dejesus [facility] ENDOSCOPY ??? PRO UP GI ENDOSCOPY, BALL DIL, 30MM N/A 01/12/2023 EGD,WITH DILATION ESOPHAGUS WITH BALLOON,< 30 MM (WRVU 2.67) performed by David Dejesus [facility] ENDOSCOPY ??? PRO UP GI ENDOSCOPY, BALL DIL, 30MM N/A 02/26/2023 EGD,WITH DILATION ESOPHAGUS WITH BALLOON,< 30 MM (WRVU 2.67) performed by David eDjesus [facility] ENDOSCOPY ??? PRO UP GI ENDOSCOPY, BALL DIL, 30MM N/A 03/16/2023 EGD,WITH DILATION ESOPHAGUS WITH BALLOON,< 30 MM (WRVU 2.67) performed by David Dejesus [facility] ENDOSCOPY ??? PRO UP GI ENDOSCOPY, BALL DIL, 30MM N/A 03/30/2023 EGD,WITH DILATION ESOPHAGUS WITH BALLOON,< 30 MM (WRVU 2.67) performed by David Dejesus [facility] ENDOSCOPY ??? PRO UP GI ENDOSCOPY, BALL DIL, 30MM N/A 04/30/2023 EGD,WITH DILATION ESOPHAGUS WITH BALLOON,< 30 MM (WRVU 2.67) performed by David Dejesus [facility] ENDOSCOPY ??? PRO UP GI ENDOSCOPY, BALL DIL, 30MM N/A 06/01/2023 EGD,WITH DILATION ESOPHAGUS WITH BALLOON,< 30 MM (WRVU 2.67) performed by David Dejesus [facility] ENDOSCOPY ??? PRO UP GI ENDOSCOPY, BALL DIL, 30MM N/A 08/02/2023 EGD,WITH DILATION ESOPHAGUS WITH BALLOON,< 30 MM (WRVU 2.67) performed by David Dejes[facility] ENDOSCOPY ??? PRO UPPER GI ENDOSCOPY, BIOPSY N/A 04/03/2014 UPPER GASTROINTESTINAL ENDOSCOPY,WITH BIOPSY SINGLE OR MULTIPLE [facility] ??? PRO UPPER GI ENDOSCOPY, BIOPSY N/A 03/20/2016 EGD WITH BIOPSY performed by David Dejesus MD at [facility] ENDOSCOPY ??? PRO UPPER GI ENDOSCOPY, BIOPSY N/A 11/22/2018 EGD WITH BIOPSY (WRVU 2.49) performed by David Dejesus MD at [facility] ENDOSCOPY ??? PRO UPPER GI ENDOSCOPY, BIOPSY N/A 03/01/2020 UPPER GASTROINTESTINAL ENDOSCOPY,WITH BIOPSY SINGLE OR MULTIPLE (WRVU 2.49) performed by David Dejesus MD at [facility] ENDOSCOPY ??? PRO UPPER GI ENDOSCOPY, BIOPSY N/A 09/23/2021 EGD WITH BIOPSY (WRVU 2.49) performed by David Dejesus MD at [facility] ENDOSCOPY ??? PRO UPPER GI ENDOSCOPY, BIOPSY N/A 03/31/2022 EGD WITH BIOPSY (WRVU 2.49) performed by David Dejesus MD at [facility] ENDOSCOPY ??? PRO UPPER GI ENDOSCOPY, BIOPSY N/A 07/03/2022 EGD WITH BIOPSY (WRVU 2.49) performed by David Dejesus MD at [facility] ENDOSCOPY ??? PRO UPPER GI ENDOSCOPY, DIAGNOSTIC N/A 04/03/2014 EGD, UPPER GI ENDOSCOPY performed by David Dejesus MD at [facility] ENDOSCOPY ??? PRO UPPER GI ENDOSCOPY, DIAGNOSTIC N/A 03/01/2020 EGD, UPPER GI ENDOSCOPY performed by David Dejesus MD at [facility] ENDOSCOPY ??? PRO UPPER GI ENDOSCOPY, DIAGNOSTIC N/A 09/09/2022 EGD, UPPER GI ENDOSCOPY (WRVU 2.09) performed by Ayo Russ MD at [facility] MA[facility] OR Social History Tobacco Use ??? Smoking status: Former Years: 11 Types: Cigarettes Quit date: 02/26/2021 Years since quittin.5 ??? Smokeless tobacco: Never Substance Use Topics ??? Alcohol use: Not Currently Social History Substance and Sexual Activity Drug Use Never Allergies Allergen Reactions ??? Meperidine Hcl Nausea And Vomiting CIS - violently ill ??? Metformin Other (See Comments) Severe diarrhea Medications: MAR and/or home medications have been reviewed. Physical Exam: Preprocedure Vitals Current as of 09/13/23 1811 No BP, pulse, respiration, SpO2, or temperature recorded. Height: Weight: BMI: IBW: Anesthesia Physical Exam Last Filed Perioperative Cognitive Screening None Anesthesia Plan: ASA 2 general, with a(n) intravenous induction 63F with PMHx of GERD, Farrell's, T2DM, obesity (BMI 28), bipolar disorder, neuroleptic-induced parkinsonism, stress cardiomyopathy (EF 32%), former smoker with peptic stricture of esophagus presenting for repeat EGD and dilation. AnesHx: Tolerated multiple prior procedures with MAC, however required ETT for prior 2 procedures due to food in esophagus and h/o aspiration PNA. G1v MAC 3 CVHx: ECHO 08/19/22: Interpretation Summary -Left ventricular systolic function is moderately reduced. The left ventricular ejection fraction is 32% by Dahl's biplane. The apical portions of the LV remain akinetic with preservation of the basal segments. There is no apical thrombus seen with echo enhancing agent. -RV systolic function is preserved. -There is no significant valve disease. Plan: GA w/ ETT RSI PRELIM NOTE Region - Other Informed Consent: Anesthesia Screening documented in this encounter Plan of Treatment Upcoming Encounters Date Type Department Care Team (Late st Contact Info) Description 12/07/2023 1:00 PM EDT Appointment [place] [phone] 12/07/2023 2:00 PM EDT Office [place] [phone] Geronimo Mojica MD [facility] [place] [address] 12/27/2023 11:30 AM EDT Office [place] [phone] Noe Cuenca MD [facility] [place] [address] Scheduled Procedures Name Priority Associated Diagnoses Date/Ti [...] 200 mL infusion Intravenous, PRN, Starting on Betty 10/07/23 at 1100, Until Betty 10/07/23 at 1126, Administer over 60 Minutes, Anesthesia Intra-op Given 10/07/2023 11:00 AM EDT 400 mg lactated ringers infusion Intravenous, CONTINUOUS PRN, Starting on Betty 10/07/23 at 1041, Until Betty 10/07/23 at 1126, Anesthesia Intra-op New Bag 10/07/2023 10:41 AM EDT lidocaine (pf) (Xylocaine) (20 mg/mL) 2% injection syringe Intravenous, PRN, Starting on Betty 10/07/23 at 1052, Until Betty 10/07/23 at 1126, Anesthesia Intra-op, Routine Given 10/07/2023 10:52 AM EDT 50 mg NORepinephrine (Levophed) injection Intravenous, PRN, Starting on Betty 10/07/23 at 1054, Until Betty 10/07/23 at 1126, Anesthesia Intra-op, Routine Given 10/07/2023 10:59 AM EDT 8 mcg Given 10/07/2023 10:54 AM EDT 4 mcg ondansetron (pf) (Zofran) (2 mg/mL) injection Intravenous, PRN, Starting on Betty 10/07/23 at 1050, Until Betty 10/07/23 at 1126, Anesthesia Intra-op, Routine Given 10/07/2023 10:50 AM EDT 4 mg propofoL (Diprivan) 10 mg/mL bolus injection (Anesthesia) Intravenous, PRN, Starting on Betty 10/07/23 at 1052, Until Btety 10/07/23 at 1126, Anesthesia Intra-op Given 10/07/2023 10:52 AM EDT 150 mg succinylcholine (Anectine;Quelicin) (20 mg/mL) injection Intravenous, PRN, Starting on Betty 10/07/23 at 1054, Until Betty 10/07/23 at 1126, Anesthesia Intra-op, Routine Given 10/07/2023 10:53 AM EDT 80 mg documented in this encounter Care Teams Archeologist Classical Relationship Specialty Start Date End Date Ana Gillespie APRN [address] [place] [address] PCP - General Family Medicine 02/03/19 documented as of this encounter
--- OUTSIDE RECORDS SUMMARY | 2023-12-03 14:53 | XMS_ITS | Encounter Summary ---
Author Organization [facility] [place] [address] Care Team Providers Care Visually Impaired Teacher Name Role Phone Ana Gillespie APRN Primary Care Provider [phone] Encounter Details Date Type Department Care Team (Late st Contact Info) Description 10/12/2023 [place] [phone] Niru Mary Social History Tobacco Use Types Packs/Day Years [...] encounter Miscellaneous Notes * Telephone Encounter - Niru Mary - 10/12/2023 2:45 PM EDT Copied from [facility] #[id number]. Topic: Specialty Dept CRMs - Generic Call >> Aug 20, 2023 8:14 AM Crispin Reeves wrote: Specialist: Bang Relationship (if other than patient-full name): Spouse, Campos Irving Reason for Call: Campos canceled 08/20/23 PFT and FUV, due to illness. Campos declined having this report writer reschedule. Please call Campos to coordinate rescheduling irgo-in-khcy appointments with Campos. documented in this encounter Plan of Treatment Upcoming Encounters Date Type Department Care Team (Late st Contact Info) Description 12/07/2023 1:00 PM EDT [place] [address] 12/07/2023 2:00 PM EDT Office [place] [phone] Geronimo Mojica MD [facility] [place] [address] 12/27/2023 11:30 AM EDT [place] [phone] Noe Cuenca MD [facility] [place] [address] Scheduled Procedures Name Priority Associated Diagnoses Date/Ti me EGD, UPPER GI ENDOSCOPY (WRV U 2.09) Peptic stricture of esophagus documented as of this encounter Visit Diagnoses Not on filedocumented in this encounter Care Teams Visually Impaired Teacher Relationship Specialty Start Date End Date Ana Gillespie APRN [address] [place] [address] PCP - General Family Medicine 02/03/19 documented as of this encounter
--- OUTSIDE RECORDS SUMMARY | 2023-12-03 14:53 | XMS_ITS | Encounter Summary ---
Author Organization [facility]ly [facility] Address [facility] [place] [address] Care Team Providers Care Vehicle Delivery Worker Name Role Phone Ana Gillespie APRN Primary Care Provider [phone] Encounter Details Date Type Department Care Team (Late st Contact Info) Description 10/05/2023 [place] [phone] Niru Mary Social History Tobacco Use Types [...] 12/07/2023 1:00 PM EDT [place] [phone] 12/07/2023 2:00 PM EDT Office [place] [phone] Geronimo Mojica MD [facility] [place] [address] 12/27/2023 11:30 AM EDT [place] [phone] Noe Cuenca MD [facility] DR PULMONARY MEDICINE [place], [place] [phone] Scheduled Procedures Name Priority Associated Diagnoses Date/Ti me EGD, UPPER GI ENDOSCOPY (WRV U 2.09) Peptic stricture of esophagus documented as of this encounter Visit Diagnoses Not on filedocumented in this encounter Care Teams Vehicle Delivery Worker Relationship Specialty Start Date End Date Ana Gillespie APRN [address] [place] [address] PCP - General Family Medicine 02/03/19 documented as of this encounter
--- OUTSIDE RECORDS SUMMARY | 2023-12-03 14:53 | XMS_ITS | Encounter Summary ---
Author Organization [facility] [place] [address] Care Team Providers Care Density Control Puncher Name Role Phone Ana Gillespie VAUGHN Primary Care Provider Encounter Details Date Type Department Care Team (Latest Contact Info) Description 09/17/2023 11:55 AM EDT - 09/17/2023 11:59 PM EDT Hospital [place] [phone] Geronimo Chambers, [facility] [place] [address] Discharge Disposition: Home Social History Tobacco Use [...] Sign Reading Time Taken Comments Blood Pressure 163/58 09/17/2023 12:30 PM EDT Pulse - - Temperature - - Respiratory Rate 18 09/17/2023 12:30 PM EDT Oxygen Saturation 95% 09/17/2023 12:30 PM EDT Inhaled Oxygen Concentration - [...] meter kit. 1 each 0 12/14/2014 Insulin [place], Disposable, (BD INSULIN PEN NEEDLE UF MINI) 31 x 07/23 NeedleIndications:Josefina betes mellitus type 2, uncontrolled 1 Device by [facility].(Non-Drug; Combo Route) route 3 times daily as needed. 100 each 11 12/13/2014 documented as of this encounter Progress Notes * Jamar Parsons RN - 09/17/2023 12:09 PM EDT ANGIO NURSING DATABASE Name: Jennifer Irving Date of : 1960 AGE: 63 y.o. Address: [address] [address] (home) Mobile: Telephone Information: Referring Provider: Geronimo Chambers REASON FOR VISIT: Order Questions Answers Is the patient on anticoagulant / antiplatelet therapy ? No Reason for exam and clinical history: Occluded gastrostomy catheter. Need for exchange. No data recorded Allergies Allergen Reactions Meperidine [...] Local only 09/17/23 G-tube exchange Local only 1217 to procedure room 4 via stretcher. Onto table supine. All monitors, O2, safety strap in place.Meds per protocol. Laboratory Results: Lab Results Component Value Date INR 2.0 08/15/2022 Lab Results Component Value Date CREATININE 0.62 (L) 09/25/2022 Lab Results Component Value Date K 4.6 09/25/2022 Lab Results Component Value Date PLATELET 222 09/23/2022 documented in this encounter Plan of Treatment Upcoming Encounters Date Type Department Care Team (Late st Contact Info) Description 12/07/2023 1:00 PM EDT Appointment [place] [address] 12/07/2023 2:00 PM EDT Office [place] [address] Geronimo Mojica MD [facility] [place] [address] 12/27/2023 11:30 AM EDT Office Visit Pulmonology at [facility] [place] [phone] Noe Cuenca MD [facility] [place] [address] Scheduled Procedures Name Priority Associated Diagnoses Date/Ti me EGD, UPPER GI ENDOSCOPY (WRV U 2.09) Peptic stricture of esophagus documented as of this encounter Procedures Procedure Name Priority Date/Time Associated Diagnosis Comments IR G-TUBE CHECK/CHANGE Routine 09/17/2023 12:51 PM EDT documented in this encounter Visit Diagnoses Not on filedocumented in this encounter Administered Medications Inactive Administered Medications - up to 3 most recent administrations Medication Order MAR Action Action Date Dose Rate Site iohexoL (Omnipaque) (350 mg/mL) solution 1-400 mL 1-400 mL, Other, ONCE, 1 dose, On Wed09/17/23 at 1215, For intra-procedural use by proceduralist., Angio/IR (Intra-Procedure), Routine Given 09/17/2023 12:15 PM EDT 10 mLs lidocaine (Glydo) 2 % gel 6 mL 6 mL, Topical (Top), EVERY 4 HOURS PRN, Starting on Wed09/17/23 at 1156, Until Wed09/17/23 at 1300, Pain, For use in Interventional Radiology (IR) only for procedure with direct provider supervision and verbal order., Angio/IR (Intra-Procedure), Routine Given 09/17/2023 12:29 PM EDT 6 mLs documented in this encounter Care Teams Density Control Puncher Relationship Specialty Start Date End Date Ana Gillespie APRN [address] [place] [address] PCP - General Family Medicine 02/03/19 documented as of this encounter
--- OUTSIDE RECORDS SUMMARY | 2023-12-03 14:53 | XMS_ITS | Encounter Summary ---
Author Organization [facility] Address [facility] [place] [address] Care Team Providers Care Paper Products Machine Operator Name Role Phone Ana Gillespie VAUGHN Primary Care Provider [phone] Encounter Details Date Type Department Care Team (Latest Contact Info) Description 09/23/2023 Travel Social History Tobacco Use Types Packs/Day [...] 12/07/2023 1:00 PM EDT Appointment Pulmonology at [place] [phone] 12/07/2023 2:00 PM EDT Office Visit Thoracic Surgery at [place] [phone] Geronimo Mojica MD [facility] [place] [address] 12/27/2023 11:30 AM EDT Office Visit Pulmonology at [place] [phone] Noe Cuenca MD [facility] [place] [address] Scheduled Procedures Name Priority Associated Diagnoses Date/Ti me EGD, UPPER GI ENDOSCOPY (WRV U 2.09) Peptic stricture of esophagus documented as of this encounter Visit Diagnoses Not on filedocumented in this encounter Care Teams Paper Products Machine Operator Relationship Specialty Start Date End Date Ana Gillespie APRN [address] [place] [address] PCP - General Family Medicine 02/03/19 documented as of this encounter
--- OUTSIDE RECORDS SUMMARY | 2023-12-03 14:53 | XMS_ITS | Encounter Summary ---
Author Organization [facility] [place] [address] Care Team Providers Care Battery Container Finishing Hand Name Role Phone Ana Gillespie VAUHGN Primary Care Provider [phone] Encounter Details Date Type Department Care Team (Late st Contact Info) Description 09/20/2023 Telephone [place] [address] Juice Maxwell RN Social History Tobacco Use Types Packs/Day Years [...] encounter Miscellaneous Notes * Telephone Encounter - Juice Maxwell RN - 09/20/2023 1:20 PM EDT TC from Rogelio () who leaves explaining that recent G-tube that was placed for pt failed while visiting in [place]. Pt is currently at an Urgent Care in [place] to manage situation. Rogelio is calling [facility] to hopefully schedule apt for pt this coming . Forwarded. documented in this encounter Plan of Treatment Upcoming Encounters Date Type Department Care Team (Late st Contact Info) Description 12/07/2023 1:00 PM EDT Appointment [place] [address] 12/07/2023 2:00 PM EDT Office [place] [address] Geronimo Mojica MD [facility] [address] [place] [address] 12/27/2023 11:30 AM EDT Office [place] [address] Noe Cuenca MD [facility] DR [place] [address] Scheduled Procedures Name Priority Associated Diagnoses Date/Ti me EGD, UPPER GI ENDOSCOPY (WRV U 2.09) Peptic stricture of esophagus documented as of this encounter Visit Diagnoses Not on filedocumented in this encounter Care Teams Battery Container Finishing Hand Relationship Specialty Start Date End Date Ana Gillespie APRN [address] [place], [place] [address] PCP - General Family Medicine 02/03/19 documented as of this encounter
--- OUTSIDE RECORDS SUMMARY | 2023-12-03 14:53 | XMS_ITS | Encounter Summary ---
Author Organization [facility] Address [facility] [place] [address] Care Team Providers Care Kindergarten Assistant Name Role Phone Ana Gillespie VAUGHN Primary Care Provider [phone] Reason for Referral * Consultation (Routine) - Closed Specialty Diagnoses / Procedures Referred By Esperanza rodríguez Referred To Contact Thoracic Surgery Diagnoses Peptic stricture of esophagus Peptic stricture of esophagus David Dejesus MD [facility] [address] Geronimo Mojica MD [facility] [place] [address] Referral ID Status Reason Start Date Expiration Date V isits Requested Visits Authorized [id number] Closed Consult, Test & Treat 11/05/2023 11/04/2024 1 1 Encounter Details Date Type Department Care Team (Late st Contact Info) Description 11/05/2023 Orders Only Gastroenterology at [place] [phone] David Dejesus MD [facility] [place] [address] Peptic stricture of esophagus Social History Tobacco [...] 12/07/2023 1:00 PM EDT [place] [address] 12/07/2023 2:00 PM EDT Office [place] [phone] Geronimo Mojica MD [facility] [place] [address] 12/27/2023 11:30 AM EDT [place] [phone] Noe Cuenca MD [facility] [place] [address] Scheduled Procedures Name Priority Associated Diagnoses Date/Ti me EGD, UPPER GI ENDOSCOPY (WRV U 2.09) Peptic stricture of esophagus Scheduled Referrals Name Type Priority Associated Diagnoses Orde r Schedule Amb Ref To Thoracic Surgery Outpatient Referral Routine Peptic stricture of esophagus Ordered: 11/05/2023 documented as of this encounter Visit Diagnoses Diagnosis Peptic stricture of esophagus Stricture and stenosis of esophagus documented in this encounter Care Teams Kindergarten Assistant Relationship Specialty Start Date End Date Ana Gillespie APRN [address] [place] [address] PCP - General Family Medicine 02/03/19 documented as of this encounter
--- OUTSIDE RECORDS SUMMARY | 2023-12-03 14:53 | XMS_ITS | Encounter Summary ---
Author Organization [facility] [place] [address] Care Team Providers Care Ship Painter Helper Name Role Phone Ana Gillespie APRN Primary Care Provider [phone] Encounter Details Date Type Department Care Team (Late Contact Info) Description 10/25/2023 Orders [place] [phone] David Dejesus MD [facility] [place] [address] Peptic stricture of esophagus Social History Tobacco [...] 12/07/2023 1:00 PM EDT Appoint[place] [phone] 12/07/2023 2:00 PM EDT Office [place] [address] Geronimo Mojica MD [facility] [place] [address] 12/27/2023 11:30 AM EDT Office [place] [address] Noe Cuenca MD [facility] [place] [address] Scheduled Orders Name Type Priority Associated Diagnoses Orde r Schedule ENDOSCOPY CASE REQUEST: EGD, UPPER GI ENDOSCOPY (WRVU 2.09) Procedures Routine Peptic stricture of esophagus Ordered: 10/25/2023 Scheduled Procedures Name Priority Associated Diagnoses Date/Ti me EGD, UPPER GI ENDOSCOPY (WRV U 2.09) Peptic stricture of esophagus documented as of this encounter Visit Diagnoses Diagnosis Peptic stricture of esophagus Stricture and stenosis of esophagus documented in this encounter Care Teams Ship Painter Helper Relationship Specialty Start Date End Date Ana Gillespie APRN [address] [place] [address] PCP - General Family Medicine 02/03/19 documented as of this encounter
--- OUTSIDE RECORDS SUMMARY | 2023-12-03 14:54 | XMS_ITS | Encounter Summary ---
[place] [address] Care Team Providers Care Car Manager Name Role Phone Ana Gillespie VAUGHN Primary Care Provider [phone] Encounter Details Date Type Department Care Team (Late st Contact Info) Description 08/10/2023 Telephone [place] [address] Chiquita James, RN Social History Tobacco Use Types Packs/Day [...] encounter Miscellaneous Notes * Telephone Encounter - Chiquita James, RN - 08/10/2023 11:52 AM EDT Incoming VM from Jennifer's Campos requesting to speak with Keke about scheduling Jennifer'snext endoscopy. States she needs a 1 month follow up and it has been one week since her last. Forwarded documented in this encounter Plan of Treatment Upcoming Encounters Date Type Department Care Team (Late st Contact Info) Description 12/07/2023 1:00 PM EDT Appointment [place] [address] 12/07/2023 2:00 PM EDT Office Visit [place] [address] Geronimo Mojica MD [facility] [address] 12/27/2023 11:30 AM EDT Office Visit [place] [phone] Noe Cuenca MD [facility] [place] [address] Scheduled Procedures Name Priority Associated Diagnoses Date/Ti me EGD, UPPER GI ENDOSCOPY (WRV U 2.09) Peptic stricture of esophagus documented as of this encounter Visit Diagnoses Not on filedocumented in this encounter Care Teams Car Manager Relationship Specialty Start Date End Date Ana Gillespie APRN [address] [place] [address] PCP - General Family Medicine 02/03/19 documented as of this encounter
--- OUTSIDE RECORDS SUMMARY | 2023-12-03 14:54 | XMS_ITS | Encounter Summary ---
Author Organization [facility] [place] [address] Care Team Providers Care Superintendent Marine Name Role Phone Ana Gillespie APRN Primary Care Provider [phone] Reason for Visit * Reason Onset Date Comments Prior Authorization 07/21/2023 Encounter Details Date Type Department Care Team (Late st Contact Info) Description 07/21/2023 Telephone [place] [address] Radha Urena Prior Authorization Social History Tobacco Use Types Packs/Day Years [...] encounter Miscellaneous Notes * Telephone Encounter - Radha Urena - 07/21/2023 1:39 PM EDT Preferred alternative Humulin R * Telephone Encounter - Radha Urena - 07/21/2023 1:38 PM EDT Images from the original note were not included. Received PA for Novolin N FlexPen documented in this encounter Plan of Treatment Upcoming Encounters Date Type Department Care Team (Late st Contact Info) Description 12/07/2023 1:00 PM EDT Appointment [place] [address] 12/07/2023 2:00 PM EDT Office Visit [place] [phone] Geronimo Mojica MD [facility] [place] [address] 12/27/2023 11:30 AM EDT Office [place] [phone] Noe Cuenca MD [facility] [place] [address] Scheduled Procedures Name Priority Associated Diagnoses Date/Ti me EGD, UPPER GI ENDOSCOPY (WRV U 2.09) Peptic stricture of esophagus documented as of this encounter Visit Diagnoses Not on filedocumented in this encounter Care Teams Superintendent Marine Relationship Specialty Start Date End Date Ana Gillespie APRN [address] [place] [address] PCP - General Family Medicine 02/03/19 documented as of this encounter
--- OUTSIDE RECORDS SUMMARY | 2023-12-03 14:54 | XMS_ITS | Encounter Summary ---
Author Organization [facility] Address [facility] [place] [address] Care Team Providers Care Boiler Washer Name Role Phone Ana Gillespie VAUGHN Primary Care Provider [phone] Encounter Details Date Type Department Care Team (Latest Contact Info) Description 09/17/2023 Travel Social History Tobacco Use Types Packs/Day [...] 12/07/2023 1:00 PM EDT Appointment Pulmonology at [place] [phone] 12/07/2023 2:00 PM EDT Office Visit Thoracic Surgery at [place] [phone] Geronimo Mojica MD [facility] [place] [address] 12/27/2023 11:30 AM EDT Office Visit Pulmonology at [place] [phone] Noe Cuenca MD [facility] [place] [address] Scheduled Procedures Name Priority Associated Diagnoses Date/Ti me EGD, UPPER GI ENDOSCOPY (WRV U 2.09) Peptic stricture of esophagus documented as of this encounter Visit Diagnoses Not on filedocumented in this encounter Care Teams Boiler Washer Relationship Specialty Start Date End Date Ana Gillespie APRN [address] [place] [address] PCP - General Family Medicine 02/03/19 documented as of this encounter
--- OUTSIDE RECORDS SUMMARY | 2023-12-03 14:54 | XMS_ITS | Encounter Summary ---
Author Organization [facility] [place] [address] Care Team Providers Care Hand Scraper Name Role Phone Ana Gillespie VAUGHN Primary Care Provider [phone] Encounter Details Date Type Department Care Team (Late st Contact Info) Description 07/28/2023 [place] [phone] Niru Mary Social History Tobacco Use Types [...] * Telephone Encounter - Niru Mary - 07/28/2023 5:13 PM EDT Copied from [facility] #[id number]. Topic: Specialty Dept CRMs - Generic Call >> Jul 21, 2023 12:23 PM Shannon Quintanilla wrote: Specialist: Noe Cuenca MD Relationship (if other than patient-full name): Campos Irving, Patients Reason for Call: Campos called today and states that he feels awful for having to cancel the appointments for both Patient and Campos, due to Patient waking up vomiting and because Niru tailored the appointments for both Patient and Campos. Campos would like to speak to Niru to discuss and does notwant to reschedule until Campos speaks with Niru. Campos also states that when Niru calls back, if Patient does not answer, please leave a message. documented in this encounter Plan of Treatment Upcoming Encounters Date Type Department Care Team (Late st Contact Info) Description 12/07/2023 1:00 PM EDT Appointment [place] [address] 12/07/2023 2:00 PM EDT Office [place] [address] Geronimo Mojica MD [facility] DR THORACIC SURGERY [place], [place] [phone] 12/27/2023 11:30 AM EDT Office [place] [phone] Noe Cuenca MD [facility] DR PULMONARY MEDICINE [place], [place] [phone] Scheduled Procedures Name Priority Associated Diagnoses Date/Ti me EGD, UPPER GI ENDOSCOPY (WRV U 2.09) Peptic stricture of esophagus documented as of this encounter Visit Diagnoses Not on filedocumented in this encounter Care Teams Hand Scraper Relationship Specialty Start Date End Date Ana Gillespie APRN [address] [place] [address] PCP - General Family Medicine 02/03/19 documented as of this encounter
--- OUTSIDE RECORDS SUMMARY | 2023-12-03 14:54 | XMS_ITS | Encounter Summary ---
Author Organization [facility] Address [facility] [address] Care Team Providers Care Brake Repairer Air Name Role Phone Ana Gillespie APRN Primary Care Provider Encounter Details Date Type Department Care Team (Late st Contact Info) Description 06/15/2023 [place] [address] Niru Mary Social History Tobacco Use Types [...] 12/07/2023 1:00 PM EDT [place] [phone] 12/07/2023 2:00 PM EDT Office [place] [phone] Geronimo Mojica MD [facility] [place] [address] 12/27/2023 11:30 AM EDT [place] [phone] Noe Cuenca MD [facility] DR PULMONARY MEDICINE [place], [place] [phone] Scheduled Procedures Name Priority Associated Diagnoses Date/Ti me EGD, UPPER GI ENDOSCOPY (WRV U 2.09) Peptic stricture of esophagus documented as of this encounter Visit Diagnoses Not on filedocumented in this encounter Care Teams Brake Repairer Air Relationship Specialty Start Date End Date Ana Gillespie APRN [address] [place] [address] PCP - General Family Medicine 02/03/19 documented as of this encounter
--- OUTSIDE RECORDS SUMMARY | 2023-12-03 14:54 | XMS_ITS | Encounter Summary ---
Author Organization [facility] Address [facility] [place] [address] Care Team Providers Care Telephonic Rn Name Role Phone Ana Gillespie APRN Primary Care Provider [phone] Encounter Details Date Type Department Care Team (Late st Contact Info) Description 06/18/2023 Telephone [place] [address] Niru Mary Social History Tobacco Use Types [...] 12/07/2023 1:00 PM EDT Appointment [place] [phone] 12/07/2023 2:00 PM EDT Office [place] [address] Geronimo Mojica MD [facility] [place] [address] 12/27/2023 11:30 AM EDT Office [place] [phone] Noe Cuenca MD [facility] DR PULMONARY MEDICINE [place], [place] [phone] Scheduled Procedures Name Priority Associated Diagnoses Date/Ti me EGD, UPPER GI ENDOSCOPY (WRV U 2.09) Peptic stricture of esophagus documented as of this encounter Visit Diagnoses Not on filedocumented in this encounter Care Teams Telephonic Rn Relationship Specialty Start Date End Date Ana Gillespie APRN [address] [place] [address] PCP - General Family Medicine 02/03/19 documented as of this encounter
--- OUTSIDE RECORDS SUMMARY | 2023-12-03 14:54 | XMS_ITS | Encounter Summary ---
Author Organization [facility] [place] [address] Care Team Providers Care Ammunition Storage Superintendent Name Role Phone Ana Gillespie APRN Primary Care Provider [phone] Encounter Details Date Type Department Care Team (Late Contact Info) Description 06/01/2023 Orders [place] [address] David Dejesus MD [facility] [place] [address] Peptic stricture of esophagus Social History Tobacco [...] 12/07/2023 1:00 PM EDT [place]oint[place] [phone] 12/07/2023 2:00 PM EDT Office [place] [address] Geronimo Mojica MD [facility] [place] [address] 12/27/2023 11:30 AM EDT Office [place] [address] Noe Cuenca MD [facility] [place] [address] Scheduled Procedures Name Priority Associated Diagnoses Date/Ti me EGD, UPPER GI ENDOSCOPY (WRV U 2.09) Peptic stricture of esophagus documented as of this encounter Visit Diagnoses Diagnosis Peptic stricture of esophagus Stricture and stenosis of esophagus documented in this encounter Care Teams Ammunition Storage Superintendent Relationship Specialty Start Date End Date Ana Gillespie APRN [address] [place] [address] PCP - General Family Medicine 02/03/19 documented as of this encounter
--- OUTSIDE RECORDS SUMMARY | 2023-12-03 14:54 | XMS_ITS | Encounter Summary ---
Author Organization Formerly [facility] Address [facility] [place] [address] Care Team Providers Care Machine Stonecutter Name Role Phone Ana Gillespie VAUGHN Primary Care Provider [phone] Encounter Details Date Type Department Care Team (Late st Contact Info) Description 07/04/2023 Telephone Cardiology at [address] [place] [phone] Gaby Lockett APRN [facility] [place] [address] Social History Tobacco Use Types Packs/Day Years [...] encounter Miscellaneous Notes * Telephone Encounter - Gaby Lockett APRN - 07/04/2023 9:31 AM EST Images from the original note were not included. 07/04/2023 9:[address] Pope's telephone note dated 07/02/23 for initial H+P details. I received a call from Dr. Trimble from [facility] through the . Per Dr. Trimble: Overnight telemetry showed new TWI. EKG with new inferolateral TWI compared with admission EKG. Does not appear patient had a change in symptoms associated with EKG changes, denies any chest pain, shortness of breath. Although OSH provider does point out that patient is a diabetic. HS Troponin- I (ULN 60) trend on 07/02 203, 434, 504, 500, then overnight 192, 162. EKG trend: 09/30/23 10/02/23 Notable prior CV testing: CTA Coronary Arteries (08/27/22): IMPRESSION Coronary calcium score of 0, consistent with no detectable calcified atherosclerotic plaque burden. No evidence of stenosing soft plaque on the coronary CT arteriogram. CAD RADS 0 TTE ([facility], 11/20/22): TTE (08/19/22): Interpretation Summary -Left ventricular [...] 08/15/22 there has been no significant change. Plan: Given reassuring troponin down-trend, lack of chest pain syndrome, and a coronary CTA within the last 10 months with calcium score of 0 and that was negative for evidence of atherosclerotic plaque, Ifeel that clinical picture still likely represents a type II NSTEMI in setting of COPD exacerbationand pneumonitis. Per OSH provider, aside from EKG changes noted above, patient is otherwise clinically improving and would like to discharge home. I recommend serial EKGs today and echo tomorrow which they have available. If change in LVEF or wall motion, or patient develops chest pain syndrome or rise in troponin, plan to reconnect. Otherwise consideration of outpatient stress test. Gaby Lockett APRN Cardiovascular Medicine 07/04/2023 documented in this encounter Plan of Treatment Upcoming Encounters Date Type Department Care Team (Late st Contact Info) Description 12/07/2023 1:00 PM EDT [place] [address] 12/07/2023 2:00 PM EDT Office [place] [address] Geronimo Mojica MD [facility] [place] [address] 12/27/2023 11:30 AM EDT [place] [phone] Noe Cuenca MD [facility] [place] [address] Scheduled Procedures Name Priority Associated Diagnoses Date/Ti me EGD, UPPER GI ENDOSCOPY (WRV U 2.09) Peptic stricture of esophagus documented as of this encounter Visit Diagnoses Not on filedocumented in this encounter Care Teams Machine Stonecutter Relationship Specialty Start Date End Date Ana Gillespie APRN [address] [place] [address] PCP - General Family Medicine 02/03/19 documented as of this encounter
--- OUTSIDE RECORDS SUMMARY | 2023-12-03 14:54 | XMS_ITS | Encounter Summary ---
Author Organization [facility] [place] [address] Care Team Providers Care Microsoft Dynamics Ax Developer Name Role Phone Ana Gillespie APRN Primary Care Provider [phone] Encounter Details Date Type Department Care Team (Late st Contact Info) Description 05/25/2023 Orders [place] [phone] David Dejesus MD [facility] [place] [place] [address] Primary parkinsonism Social History Tobacco Use Types Packs/Day Years [...] 12/07/2023 1:00 PM EDT Appointment [place] [phone] 12/07/2023 2:00 PM EDT Office Visit [place] [address] Geronimo Mojica MD [facility] [place] [address] 12/27/2023 11:30 AM EDT Office [place] [address] Noe Cuenca MD [facility] [place] [address] Scheduled Procedures Name Priority Associated Diagnoses Date/Ti me EGD, UPPER GI ENDOSCOPY (WRV U 2.09) Peptic stricture of esophagus documented as of this encounter Visit Diagnoses Diagnosis Primary parkinsonism Paralysis agitans documented in this encounter Care Teams Microsoft Dynamics Ax Developer Relationship Specialty Start Date End Date Ana Gillespie APRN [address] [place] [address] PCP - General Family Medicine 02/03/19 documented as of this encounter
--- OUTSIDE RECORDS SUMMARY | 2023-12-03 14:54 | XMS_ITS | Encounter Summary ---
Author Organization [facility] [place] [address] Care Team Providers Care Community Planning Technician Name Role Phone Jose Miguel Ana MENDES Primary Care Provider Encounter Details Date Type Department Care Team (Late st Contact Info) Description 07/12/2023 Telephone Cardiology at [address] [phone] Chiquis Jean, RN Social History Tobacco Use Types Packs/Day [...] encounter Miscellaneous Notes * Telephone Encounter - Chiquis Jean RN - 07/12/2023 10:29 AM EST TC to [employer] in [facility], and spoke with Pharmacist to clarify Entresto doing and prescriber information. Entresto 24-26 mg, QD, written by PCP, Ana Gillespie NP. Chiquis Jean (Jodie), RN, BSN Cardiology Ambulatory Clinic * Telephone Encounter - Chiquis Jean RN - 07/12/2023 10:09 AM EST RTC to Mr Irving to clarify his request for Entresto 24-26 mg, BID. Mr Irving states that the Entresto has been called to [email or web address] in [facility]. Reviewing his chart the last [facility] prescription ref[facility] from [facility] was 09/24/2022, for 1 tablet 24-26mg, BID in G Tube. Mr Irving became upset when asked about dosage of 1/2, vs 1 tablet BID. Also, states he has to leave, now, and became upset, when asked for BP readings, for Mrs Irving. Chart review reveals, Entresto, kept 1 BID, and Spironolactone stopped, Metporolol divided into BIDdoses. ////////////////////////////////////////// Per Chela Walsh, on 02/24/2023, telephone encounter. Campos, spouse contacted with the following response from Dr Hernandez: Have her stop the spironolactone and follow up blood pressures. If still low, will cut Entresto to half dose. He voiced good under standing. Med list updated. Reminded to call with any questions/concerns and/or if her BP does not improve with stopping the Spironolactone. Call placed to CHEKO Gillespie with the above plan as well. She is thankful for the update. ///////////////////////////////////////////// Per Dr Hernandez: on 03/02/2023: Milagros Hernandez MD to Chela Walsh She should stay off the spironolactone and be put back on metoprolol succinate, which will have more even coverage and has better evidence for benefit than tartrate which should really only be used for dose titration. Chiquis Jean (Jodie), RN, BSN Cardiology Ambulatory Clinic documented in this encounter Plan of Treatment Upcoming Encounters Date Type Department Care Team (Late st Contact Info) Description 12/07/2023 1:00 PM EDT Appointment [place] [address] 12/07/2023 2:00 PM EDT Office [place] [address] Geronimo Mojica MD [facility] [place] [address] 12/27/2023 11:30 AM EDT Office [place] [address] Noe Cuenca MD [facility] PULMONARY MEDICINE [place], [place] [phone] Scheduled Procedures Name Priority Associated Diagnoses Date/Ti me EGD, UPPER GI ENDOSCOPY (WRV U 2.09) Peptic stricture of esophagus documented as of this encounter Visit Diagnoses Not on filedocumented in this encounter Care Teams Community Planning Technician Relationship Specialty Start Date End Date Ana Gillespie APRN [address] [place] [address] PCP - General Family Medicine 02/03/19 documented as of this encounter
--- OUTSIDE RECORDS SUMMARY | 2023-12-03 14:54 | XMS_ITS | Encounter Summary ---
Author Organization [facility] [place] [address] Care Team Providers Care Dredge Pipeman Name Role Phone Ana Gillespie APRN Primary Care Provider [phone] Reason for Visit * Reason Onset Date Comments Medication Refill 07/12/2023 Encounter Details Date Type Department Care Team (Late st Contact Info) Description 07/12/2023 Refill Cardiology at [address] [phone] Milagros Hernandez MD [facility] [place] [address] Medication Refill Social History Tobacco Use Types Packs/Day Years [...] 12/07/2023 1:00 PM EDT [place]oint[place] [phone] 12/07/2023 2:00 PM EDT Office [place] [address] Geronimo Mojica MD [facility] [place] [address] 12/27/2023 11:30 AM EDT [place] [address] Noe Cuenca MD [facility] [place] [address] Scheduled Procedures Name Priority Associated Diagnoses Date/Ti me EGD, UPPER GI ENDOSCOPY (WRV U 2.09) Peptic stricture of esophagus documented as of this encounter Visit Diagnoses Diagnosis HFrEF (heart failure with reduced ejection fraction) documented in this encounter Care Teams Dredge Pipeman Relationship Specialty Start Date End Date Ana Gillespie APRN [address] [place] [address] PCP - General Family Medicine 02/03/19 documented as of this encounter
--- OUTSIDE RECORDS SUMMARY | 2023-12-03 14:54 | XMS_ITS | Encounter Summary ---
[place] [address] Care Team Providers Care Superintendent [employer] Name Role Phone Ana Gillespie ASSOCIATE PROFESSOR Primary Care Provider [phone] Encounter Details Date Type Department Care Team (Late st Contact Info) Description 09/02/2023 Telephone [place] [phone] Parris Maravilla Social History Tobacco Use Types [...] * Telephone Encounter - Parris Maravilla - 09/02/2023 10:25 AM EDT Placed outgoing phone call to patient in order to reschedule a procedure. Phone Call Outcome: Left voicemail asking for return call. This was the 1st attempt If the call is returned, it can be handled by: Endo Police Officer please park to me documented in this encounter Plan of Treatment Upcoming Encounters Date Type Department Care Team (Late st Contact Info) Description 12/07/2023 1:00 PM EDT Appointment [place] [phone] 12/07/2023 2:00 PM EDT Office Visit [place] [address] Geronimo Mojica MD [facility] [place] [address] 12/27/2023 11:30 AM EDT Office [place] [address] Noe Cuenca MD [facility] PULMONARY MEDICINE [place], [place] [phone] Scheduled Procedures Name Priority Associated Diagnoses Date/Ti me EGD, UPPER GI ENDOSCOPY (WRV U 2.09) Peptic stricture of esophagus documented as of this encounter Visit Diagnoses Not on filedocumented in this encounter Care Teams Superintendent [employer] Relationship Specialty Start Date End Date Ana Gillespie APRN [address] [place] [address] PCP - General Family Medicine 02/03/19 documented as of this encounter
--- OUTSIDE RECORDS SUMMARY | 2023-12-03 14:54 | XMS_ITS | Encounter Summary ---
[place] [address] Care Team Providers Care Retail Furniture Sales Name Role Phone Ana Gillespie VAUGHN Primary Care Provider [phone] Reason for Referral * Diagnostic Test (Routine) - Closed Specialty Diagnoses / Procedures Referred By Esperanza rodríguez Referred To Contact Radiology Diagnoses Problem with gastrostomy tube Procedures IR Site Check In Recovery Room Fannie Conde PA [facility] [place] [address] [facility] [place] [address] Referral ID Status Reason Start Date Expiration Date V isits Requested Visits Authorized [id number] Closed Specialty Service Requested 09/17/2023 03/19/2025 1 1 Reason for Visit * Diagnostic Test (Routine) - Closed Specialty Diagnoses / Procedures Referred By Esperanza rodríguez Referred To Contact Radiology Diagnoses Problem with gastrostomy tube Procedures IR Site Check In Recovery Room Fannie Conde PA [facility] [place] [address] [facility] [place] [address] Referral ID Status Reason Start Date Expiration Date V isits Requested Visits Authorized [id number] Closed Specialty Service Requested 09/17/2023 03/19/2025 1 1 Encounter Details Date Type Department Care Team (Latest Contact Info) Description 09/17/2023 11:00 AM EDT - 09/17/2023 11:54 AM EDT Hospital En[place] [phone] Geronimo Chambers, [facility] [place] [address] Problem with gastrostomy tube Discharge Disposition: Home Social History Tobacco Use [...] 180 tablet 3 10/20/2021 Blood Sugar Diagnostic (ClicData ULTRA TEST) StripIndications:Type 2 diabetes mellitus, uncontrolled [...] meter kit. 1 each 0 12/14/2014 Insulin [place], Disposable, (BD INSULIN PEN NEEDLE UF MINI) 31 x 3/16 NeedleIndications:Josefina betes mellitus type 2, uncontrolled 1 Device by Misc.(Non-Drug; Combo Route) route 3 times daily as needed. 100 each 11 12/13/2014 documented as of this encounter Plan of Treatment Upcoming Encounters Date Type Department Care Team (Late st Contact Info) Description 12/07/2023 1:00 PM EDT Appointment Pulmonology at [place] [phone] 12/07/2023 2:00 PM EDT Office [place] [address] Geronimo Mojica MD [facility] [place] [address] 12/27/2023 11:30 AM EDT Office [place] [address] Noe Cuenca MD [facility] [place] [address] Scheduled Procedures Name Priority Associated Diagnoses Date/Ti me EGD, UPPER GI ENDOSCOPY (WRV U 2.09) Peptic stricture of esophagus documented as of this encounter Procedures Procedure Name Priority Date/Time Associated Diagnosis Comments IR SITE CHECK IN RECOVERY ROOM Routine 09/17/2023 1:00 PM EDT Problem with gastrostomy tube IR G-TUBE CHECK/CHANGE Routine 09/17/2023 12:51 PM EDT documented in this encounter Results * IR Site Check In Recovery Room (09/17/2023 1:00 PM EDT) Narrative JUAN ANTONIO WIN - 09/17/2023 1:00 PM EDT This exam is auto-finalizing. No interpretation was done. Geronimo DE LA ROSA IR ORDERABLES [place], [place] * IR G-Tube Check/Change (09/17/2023 12:51 PM EDT) Anatomical Region Laterality Modality Chest X-Ray Angiograph y Narrative 09/17/2023 1:10 PM EDT Interventional Radiology Procedure Note Procedure: Gastrostomy catheter exchange Indication for procedure: Esophageal stricture, enteral access dependent, occluded catheter Pre-procedure: Informed consent for the procedure including risks, benefits and alternatives was obtained. Active time-out was performed prior to the procedure. Maximum sterile barrier technique was used throughout the procedure. Method of sedation: None. Pulse, pressure, and oxygen saturation were continuously monitored. Technique: The patient was positioned supine. Local anesthetic was administered. A guidewire was advanced alongside the indwelling gastrostomy catheter. A 5 F dilator was advanced and contrast injection was performed, confirming intragastric position. The retention balloon of the indwelling catheter was aspirated and the catheter withdrawn intact. A new 16 F gastrostomy catheter was advanced over the wire. Intragastric position was confirmed with contrast injection. Retention balloon inflated with 5 mL sterile water. The tube was capped. Clean dressing applied. Medications: Viscous lidocaine topical Fluoroscopy: 1.0 mGy Estimated blood loss: 2 mL Complications: No immediate Specimens: None Impression: 1.) Distal 3 cm of the indwelling gastrostomy catheter found to be occluded by crushed medications. 2.) Placement of new 16 F gastrostomy tube with external disk positioned at 4 cm marker. tub operator: Hang Cooper PA-C Attending of record: Geronimo Chambers DO. I was not present. ?? 09/17/2023 Geronimo DE LA ROSA IR ORDERABLES documented in this encounter Visit Diagnoses Diagnosis Problem with gastrostomy tube documented in this encounter Care Teams Retail Furniture Sales Relationship Specialty Start Date End Date Ana Gillespie APRN [address] [place] [address] PCP - General Family Medicine 02/03/19 documented as of this encounter
--- OUTSIDE RECORDS SUMMARY | 2023-12-03 14:54 | XMS_ITS | Encounter Summary ---
Author Organization [facility] Address [facility] [place] [address] Care Team Providers Care Supervisor Picking Crew Name Role Phone Ana Gillespie VAUGHN Primary Care Provider [phone] Encounter Details Date Type Department Care Team (Latest Contact Info) Description 07/09/2023 Travel Social History Tobacco Use Types Packs/Day [...] 12/07/2023 1:00 PM EDT Appointment Pulmonology at [place] [phone] 12/07/2023 2:00 PM EDT Office Visit Thoracic Surgery at [place] [phone] Geronimo Mojica MD [facility] [place] [address] 12/27/2023 11:30 AM EDT Office Visit Pulmonology at [place] [phone] Noe Cuenca MD [facility] [place] [address] Scheduled Procedures Name Priority Associated Diagnoses Date/Ti me EGD, UPPER GI ENDOSCOPY (WRV U 2.09) Peptic stricture of esophagus documented as of this encounter Visit Diagnoses Not on filedocumented in this encounter Care Teams Supervisor Picking Crew Relationship Specialty Start Date End Date Ana Gillespie APRN [address] [place] [address] PCP - General Family Medicine 02/03/19 documented as of this encounter
--- OUTSIDE RECORDS SUMMARY | 2023-12-03 14:54 | XMS_ITS | Encounter Summary ---
Author Organization [facility] [place] [address] Care Team Providers Care Level Vial Grinder Name Role Phone Ana Gillespie VAUGHN Primary Care Provider [phone] Encounter Details Date Type Department Care Team (Late st Contact Info) Description 06/11/2023 Telephone [place] [address] Chiquita James, RN Social History [...] Telephone Encounter - Chiquita James, RN - 06/11/2023 4:01 PM EST Incoming VM from Jennifer's Campos requesting a call from endo schedulers to set up time forJennifer's next scope in 6 weeks. Forwarded documented in this encounter Plan of Treatment Upcoming Encounters Date Type Department Care Team (Late st Contact Info) Description 12/07/2023 1:00 PM EDT Appointment [place] [address] 12/07/2023 2:00 PM EDT Office Visit [place] [address] Geronimo Mojica MD [facility] [place] [address] 12/27/2023 11:30 AM EDT Office [place] [address] Noe Cuenca MD [facility] [place] [address] Scheduled Procedures Name Priority Associated Diagnoses Date/Ti me EGD, UPPER GI ENDOSCOPY (WRV U 2.09) Peptic stricture of esophagus documented as of this encounter Visit Diagnoses Not on filedocumented in this encounter Care Teams Level Vial Grinder Relationship Specialty Start Date End Date Ana Gillespie APRN [address] [place] [address] PCP - General Family Medicine 02/03/19 documented as of this encounter
--- OUTSIDE RECORDS SUMMARY | 2023-12-03 14:54 | XMS_ITS | Encounter Summary ---
[place] [address] Care Team Providers Care Production Manufacturing Worker Name Role Phone Ana Gillespie VAUGHN Primary Care Provider [phone] Encounter Details Date Type Department Care Team (Late st Contact Info) Description 08/11/2023 Telephone [place] [phone] Parris Maravilla Social History Tobacco Use Types [...] * Telephone Encounter - Parris Maravilla - 08/11/2023 10:08 AM EDT Placed outgoing phone call to patient in order to schedule a procedure. Phone Call Outcome: Left voicemail asking for return call. PJ EGD Time held on 09/[address] Dejesus This was the 1st attempt If the call is returned, it can be handled by: Any Endoscopy Shot Tube Machine Tender documented in this encounter Plan of Treatment Upcoming Encounters Date Type Department Care Team (Late st Contact Info) Description 12/07/2023 1:00 PM EDT Appointment [place] [phone] 12/07/2023 2:00 PM EDT Office [place] [address] Geronimo Mojica MD [facility] [place] [address] 12/27/2023 11:30 AM EDT Office [place] [address] Noe Cuenca MD [facility] [place] [address] Scheduled Procedures Name Priority Associated Diagnoses Date/Ti me EGD, UPPER GI ENDOSCOPY (WRV U 2.09) Peptic stricture of esophagus documented as of this encounter Visit Diagnoses Not on filedocumented in this encounter Care Teams Production Manufacturing Worker Relationship Specialty Start Date End Date Ana Gillespie APRN [address] [place] [address] PCP - General Family Medicine 02/03/19 documented as of this encounter
--- OUTSIDE RECORDS SUMMARY | 2023-12-03 14:54 | XMS_ITS | Encounter Summary ---
Author Organization Replaced By [facility] Address [facility] [place] [address] Care Team Providers Care Spouting Installer Name Role Phone Ana Gillespie APRN Primary Care Provider [phone] Encounter Details Date Type Department Care Team (Late st Contact Info) Description 08/02/2023 11:03 AM EDT Anesthesia Event [place] [phone] Maddie Hughes MD [facility] [address] [place] [address] Anesthesia Record Procedure Summary Procedure Name Responsible Anesthesiologist Anesthesia Start Time Anesthesia Stop Time EGD,WITH DILATION ESOPHAGUS WITH BALLOON,< 30 MM (WRVU 2.67) Maddie Hughes MD 08/02/23 1103 08/02/23 1148 Events Date Time Event Comment 08/02/2023 1042 1103 AN Verify 1103 Start 1103 An Start Data 1111 An Induction 1113 An Intubation 1113 Anesthesia Ready 1116 Procedure Start 1118 Break/Relief In I assumed ca re for Break Relief before which we: 1. Identified the patient 2. Identified the responsible provider(s) 3. Reviewed the pertinent medical history 4. Discussed the surgical plan and course 5. Reviewed intra-op anesthesia management and issues during anesthesia 6. Set expectations for the relief (and/or post-procedure) period 7. Allowed opportunity for questions and acknowledgement of understanding claire DECKHAND CLAM DREDGE 1137 Extubation/LMA Out 1139 an stop data 1148 Recovery or ICU Handoff Sayra ent care was transferred to the destination unit staff after review of the patient's medical history, current anesthetic/surgical status and plan, according to the Provider Handoff Checklist. 1148 Stop Meds Name Total IV Lidocaine 50 mg Propofol 200 mg Propofol INF 198 mg Ondansetron 4 mg Dexamethasone 4 mg Succinylcholine 80 mg famotidine 20 mg lactated ringers infusion 300 mL * Agents Name O2 * Blood No blood administrations on file. Lines, Drains, and Airways Type Details Placement Removal Enterostomy Tube 03/10/23; 1618; gastrostomy tube with balloon (16F); LUQ (left upper quadrant); feeding; MD Chambers G-Tube exchange 16Fr. 07/09/23, 09/17/23 exchanged with 16fr by ROSLYN Cooper, 10/14/23 Tube exchange 16 fr, MD Hart 03/10/23 1618 by Sergey Jordan RN PIV 08/02/23; 1002; 22 gauge; Arley Doan; 08/02/23; 1231 08/02/23 1002 by Gaby Doan RN 08/02/23 1231 by Parris Quinn RN ETT Mask Ventilation: Ea johny (1); ETT Type: Uncuffed; ETT Size: 7 mm; Mac Blade: 3; Notes: Asleep; Attempts: 1; Laryngoscopy Grade: 1; Secured at Teeth: 21 cm; Removal Date: 08/02/23; Removal Time: 1137 08/02/23 1118 by Ede Hughes CRNA 08/02/23 1137 by Ede Hughes CRNA documented in this encounter Social History [...] OR Notes * Anesthesia Postprocedure Evaluation - Maddie Hughes MD - 08/02/2023 12:05 PM EDT Department of Anesthesiology Post-procedure Note Patient: Jennifer Irving Procedure Summary Date: 08/02/23 Room / Location: [facility] ENDO 2 / [facility] ENDOSCOPY Anesthesia Start: 1103 Anesthesia Stop: 1148 Procedure: EGD,WITH DILATION ESOPHAGUS WITH BALLOON,< 30 MM (WRVU 2.67) Diagnosis: Peptic stricture of esophagus (covington's esophagus - stricyture - 45 minutes - schedule july 2023) Surgeons: David Dejesus MD Responsible Provider: Maddie Hughes MD Anesthesia Type: general ASA Status: 3 All Anesthesia Providers: Anesthesiologist: Maddie Hughes MD DECKHAND CLAM DREDGE: Ede Hughes CRNA Vitals Value Taken Time BP 121/61 08/02/23 1210 Temp Pulse Resp 17 08/02/23 1210 SpO2 100 % 08/02/23 1215 Pain Level 0 08/02/23 1210 Vitals shown include unfiled device data. Patient Location: PACU/[facility] Level of Consciousness: Awake and Alert Pain Management: Satisfactory Analgesia PONV: None Cardiovascular Status: At Baseline and Hemodynamically Stable Respiratory Status: At Baseline and Room Air Postoperative Fluid Status: Intravascular EUvolemia Possible Anesthetic Complications: NONE apparent at time of evaluation Final Primary Anesthesia Type: General (The anesthetic type performed was the same as planned.) Comments: Maddie Hughes MD * Anesthesia Preprocedure Evaluation - Maddie Hughes MD - 08/01/2023 2:31 PM EDT Images from the original note were not included. Pre-Anesthesia Evaluation for: Jennifer Irving a 63 [...] IR G-Tube Check/Change 11/27/2022 Hang Cooper PA [facility] INTERVENTIONL RAD ??? IR G-TUBE CHECK/CHANGE 03/10/2023 IR G-Tube Check/Change 03/10/2023 Geronimo Chambers, [facility] INTERVENTIONL RAD ??? IR G-TUBE CHECK/CHANGE 04/06/2023 IR G-Tube Check/Change 04/06/2023 Gavin Carrillo MD [facility] INTERVENTIONL RAD ??? IR G-TUBE CHECK/CHANGE 05/09/2023 IR G-Tube Check/Change [facility] INTERVENTIONL RAD ??? IR G-TUBE CHECK/CHANGE 07/09/2023 IR G-Tube Check/Change [facility] INTERVENTIONL RAD ??? IR G-TUBE PLACEMENT 09/11/2022 IR G-Tube Placement 09/11/2022 Moustapha Hart MD [facility] INTERVENTIONL RAD ??? IR SUTURE RELEASE 09/25/2022 IR Suture Release 09/25/2022 Yoselin Ghosh PA [facility] INTERVENTIONL RAD ??? PERCUTANEOUS GASTROSTOMY N/A 09/11/2022 PERCUTANEOUS GASTROSTOMY performed by Aiden Flores MD at [facility] CATY ??? PRO COLONOSCOPY, BIOPSY N/A 03/20/2016 COLONOSCOPY FLEXIBLE, WITH BX performed by David Dejesus MD at [facility] ENDOSCOPY ??? PRO COLONOSCOPY, DIAGNOSTIC N/A 03/01/2020 COLONOSCOPY, DIAGNOSTIC performed by David Dejesus MD at [facility] ENDOSCOPY ??? PRO ENDOSCOPIC US EXAM, ESOPH N/A 03/31/2022 UPPER EUS- ENDOSCOPIC ULTRASOUND performed by David Dejesus MD at [facility] ENDOSCOPY ??? PRO UP GI ENDOSCOPY, BALL DIL, 30MM N/A 12/24/2022 EGD,WITH DILATION ESOPHAGUS WITH BALLOON,< 30 MM (WRVU 2.67) performed by David Dejesus [facility] ENDOSCOPY ??? PRO UP GI ENDOSCOPY, BALL DIL, 30MM N/A 01/12/2023 EGD,WITH DILATION ESOPHAGUS WITH BALLOON,< 30 MM (WRVU 2.67) performed by David Dejesus MDat [facility] ENDOSCOPY ??? PRO UP GI ENDOSCOPY, BALL DIL, 30MM N/A 02/26/2023 EGD,WITH DILATION ESOPHAGUS WITH BALLOON,< 30 MM (WRVU 2.67) performed by David Dejesus [facility] ENDOSCOPY ??? PRO UP GI ENDOSCOPY, BALL DIL, 30MM N/A 03/16/2023 EGD,WITH DILATION ESOPHAGUS WITH BALLOON,< 30 MM (WRVU 2.67) performed by David Dejesus [facility] ENDOSCOPY ??? PRO UP GI ENDOSCOPY, BALL DIL, 30MM N/A 03/30/2023 EGD,WITH DILATION ESOPHAGUS WITH BALLOON,< 30 MM (WRVU 2.67) performed by David Dejesus [facility] ENDOSCOPY ??? PRO UP GI ENDOSCOPY, BALL DIL, 30MM N/A 04/30/2023 EGD,WITH DILATION ESOPHAGUS WITH BALLOON,< 30 MM (WRVU 2.67) performed by David Dejesus [facility] ENDOSCOPY ??? PRO UP GI ENDOSCOPY, BALL DIL, 30MM N/A 06/01/2023 EGD,WITH DILATION ESOPHAGUS WITH BALLOON,< 30 MM (WRVU 2.67) performed by David Dejesus [facility] ENDOSCOPY ??? PRO UPPER GI ENDOSCOPY, BIOPSY N/A 04/03/2014 UPPER GASTROINTESTINAL ENDOSCOPY,WITH BIOPSY SINGLE OR MULTIPLE performed by David Dejesus [facility] ENDOSCOPY ??? PRO UPPER GI ENDOSCOPY, BIOPSY N/A 03/20/2016 EGD WITH BIOPSY performed by David Dejesus MD at [facility] ENDOSCOPY ??? PRO UPPER GI ENDOSCOPY, BIOPSY N/A 11/22/2018 EGD WITH BIOPSY (WRVU 2.49) performed by David Dejesus MD at [facility] ENDOSCOPY ??? PRO UPPER GI ENDOSCOPY, BIOPSY N/A 03/01/2020 UPPER GASTROINTESTINAL ENDOSCOPY,WITH BIOPSY SINGLE OR MULTIPLE (WRVU 2.49) performed by David Dejesus MD at [facility] ENDOSCOPY ??? PRO UPPER GI ENDOSCOPY, BIOPSY N/A 09/23/2021 EGD WITH BIOPSY (WRVU 2.49) performed by aDvid Dejesus MD at [facility] ENDOSCOPY ??? PRO UPPER GI ENDOSCOPY, BIOPSY N/A 03/31/2022 EGD WITH BIOPSY (WRVU 2.49) performed by David Dejesus MD at [facility] ENDOSCOPY ??? PRO UPPER GI ENDOSCOPY, BIOPSY N/A 07/03/2022 EGD WITH BIOPSY (WRVU 2.49) performed by David Dejesus MD at [facility] ENDOSCOPY ??? PRO UPPER GI ENDOSCOPY, DIAGNOSTIC N/A 04/03/2014 EGD, UPPER GI ENDOSCOPY performed by David Dejesus MD at [facility] ENDOSCOPY ??? PRO UPPER GI ENDOSCOPY, DIAGNOSTIC N/A 03/01/2020 EGD, UPPER GI ENDOSCOPY performed by David Dejesus MD at [facility] ENDOSCOPY ??? PRO UPPER GI ENDOSCOPY, DIAGNOSTIC N/A 09/09/2022 EGD, UPPER GI ENDOSCOPY (WRVU 2.09) performed by Ayo Russ MD at [facility] MAIN OR Social History Tobacco Use ??? Smoking status: Former Years: 11 Types: Cigarettes Quit date: 02/26/2021 Years since quittin.4 ??? Smokeless tobacco: Never Substance Use Topics ??? Alcohol use: Not Currently Social History Substance and Sexual Activity Drug Use Never Allergies Allergen Reactions ??? Meperidine Hcl Nausea And Vomiting CIS - violently ill ??? Metformin Other (See Comments) Severe diarrhea Medications: MAR and/or home medications have been reviewed. Physical Exam: Preprocedure Vitals Current as of 08/01/23 1431 No BP, pulse, respiration, SpO2, or temperature recorded. Height: Weight: BMI: IBW: Airway Assessment: Mallampati: I TM distance: <3 FB Neck ROM: full Cardiovascular Assessment: system normal Pulmonary Assessment: breath sounds clear to auscultation PE comment: Decreased inspiratory effort Dental Assessment: Misc Assessment: IV access: Peripheral line Last Filed Perioperative Cognitive Screening None Anesthesia Plan: ASA 3 general, with a(n) intravenous induction 62F with PMHx of GERD, Covington's, T2DM, obesity (BMI 28), bipolar disorder, neuroleptic-induced [...] valve disease. Plan: GA w/ ETT RSI Standard ASA monitors Aspiration precautions Region - Other Informed Consent: Anesthetic plan and risks discussed with patient and spouse. Plan discussed with DECKHAND CLAM DREDGE and attending. Anesthesia Screening documented in this encounter Plan of Treatment Upcoming Encounters Date Type Department Care Team (Late st Contact Info) Description 12/07/2023 1:00 PM EDT Appointment [place] [phone] 12/07/2023 2:00 PM EDT Office Visit [place] [phone] [facility] [place] [address] 12/27/2023 11:30 AM EDT Office [place] [phone] [facility] [place] [address] Scheduled Procedures Name Priority Associated Diagnoses Date/Ti ak EGD, UPPER GI ENDOSCOPY (WRV U 2.09) Peptic stricture of esophagus documented as of this encounter Visit Diagnoses Not on filedocumented in this encounter Administered Medications Inactive Administered Medications - up to 3 most recent administrations Medication Order MAR Action Action Date Dose Rate Site dexAMETHasone (Decadron) injection Intravenous, PRN, Starting on Wed08/02/23 at 1145, Until Wed08/02/23 at 1148, Anesthesia Intra-op, Routine Given 08/02/2023 11:45 AM EDT 4 mg famotidine (Pepcid) (10 mg/mL) injection Intravenous, PRN, Starting on Wed08/02/23 at 1115, Until Wed08/02/23 at 1148, Anesthesia Intra-op, Routine Given 08/02/2023 11:15 AM EDT 20 mg lactated ringers infusion 100 mL/hr, Intravenous, CONTINUOUS, Starting on Wed08/02/23 at 1000, Until Wed08/02/23 at 1231, Endoscopy (Day of Procedure) Restarted 08/02/2023 11:23 AM EDT New Bag 08/02/2023 10:02 AM EDT 100 mL/hr 100 mL/hr lidocaine (pf) (Xylocaine) (20 mg/mL) 2% injection syringe Intravenous, PRN, Starting on Wed08/02/23 at 1120, Until Wed08/02/23 at 1148, Anesthesia Intra-op, Routine Given 08/02/2023 11:20 AM EDT 50 mg ondansetron (pf) (Zofran) (2 mg/mL) injection Intravenous, PRN, Starting on Wed08/02/23 at 1145, Until Wed08/02/23 at 1148, Anesthesia Intra-op, Routine Given 08/02/2023 11:45 AM EDT 4 mg propofoL (Diprivan) (10 mg/mL) infusion Intravenous, CONTINUOUS PRN, Starting on Wed08/02/23 at 1113, Until Wed08/02/23 at 1148, Anesthesia Intra-op, Routine Rate/Dose Change 08/02/2023 11:30 AM EDT 50 mcg/kg/min 19.8 mL/hr Rate/Dose Change 08/02/2023 11:20 AM EDT 150 mcg/kg/min 59 .4 mL/hr New Bag 08/02/2023 11:13 AM EDT 200 mcg/kg/min 79.2 mL/ hr propofoL (Diprivan) 10 mg/mL bolus injection (Anesthesia) Intravenous, PRN, Starting on Wed08/02/23 at 1113, Until Wed08/02/23 at 1148, Anesthesia Intra-op Given 08/02/2023 11:13 AM EDT 50 mg Given 08/02/2023 11:11 AM EDT 150 mg succinylcholine (Anectine;Quelicin) (20 mg/mL) injection Intravenous, PRN, Starting on Wed08/02/23 at 1120, Until Wed08/02/23 at 1148, Anesthesia Intra-op, Routine Given 08/02/2023 11:12 AM EDT 80 mg documented in this encounter Care Teams Spouting Installer Relationship Specialty Start Date End Date Ana Gillespie APRN [address] [place] [address] PCP - General Family Medicine 02/03/19 documented as of this encounter
--- OUTSIDE RECORDS SUMMARY | 2023-12-03 14:54 | XMS_ITS | Encounter Summary ---
Author Organization [facility] Address [facility] [place] [address] Care Team Providers Care Garbage Truck Driver Name Role Phone Ana Gillespie VAUGHN Primary Care Provider [phone] Encounter Details Date Type Department Care Team (Late st Contact Info) Description 08/02/2023 11:00 AM EDT - 08/02/2023 12:00 PM EDT Surgery [place] [phone] David Dejesus MD [facility] [place] [address] EGD,WITH DILATION ESOPHAGUS WITH BALLOON,< 30 MM (WRVU 2.67) Social History Tobacco Use Types Packs/Day Years [...] Sign Reading Time Taken Comments Blood Pressure 91/53 08/02/2023 11:50 AM EDT Pulse 55 08/02/2023 9:45 AM EDT Temperature 36.4 ??C (97.6 ??F) 08/02/2023 9:45 AM ED T Respiratory Rate 15 08/02/2023 11:50 AM EDT Oxygen Saturation 97% 08/02/2023 11:50 AM EDT Inhaled Oxygen Concentration - - Weight - - Height - - Body Mass Index - - documented in this encounter Discharge Instructions * Discharge Instructions* Parris Quinn RN - 08/02/2023 11:51 AM EDT Upper GI Endoscopy: What to [...] the day after the procedure, use an selq-qvz-rixvngs spray to numb your throat. Sucking on [...] occurs, please contact your Doctor. Please call [phone] before 8pm Mon-Fri with problems, questions or concerns. If you call after 8pm or on weekends, call the Hospital at [phone] and ask to speak to the Plant Clerk labor conciliator and the slusher operator will contact that person for you. When should you call for help? Call [phone] anytime you think you may need emergency [...] any problems. Where can you learn more? [facility] View your After Visit Summary and more online at [email or web address] If you would like to provide feedback about your hospital experience, please call the Office of Patient and Family Relations at . If you have received this After Visit Summary in error, please immediately return it in person to the department, or notify the [facility] Privacy Office by calling toll free at between the hours of 8AM and 5PM to arrange for our retrieval of the documents at no cost to you. Content Version: 12.2 ?? [id number] [employer]. Care instructions adapted under license by [facility]. If you have questions about a medical condition or this instruction, always ask your healthcare professional. [employer] disclaims any warranty or liability for your [...] the day after the procedure, use an lpvu-dkw-nyaadsr spray to numb your throat. Sucking on [...] occurs, please contact your Doctor. Please call [phone] before 8pm Mon-Fri with problems, questions or concerns. If you call after 8pm or on weekends, call the Hospital at [phone] and ask to speak to the Plant Clerk labor conciliator and the slusher operator will contact that person for you. When should you call for help? Call [phone] anytime you think you may need emergency [...] any problems. Where can you learn more? [facility] View your After Visit Summary and more online at [email or web address] If you would like to provide feedback about your hospital experience, please call the Office of Patient and Family Relations at . If you have received this After Visit Summary in error, please immediately return it in person to the department, or notify the [facility] Privacy Office by calling toll free at between the hours of 8AM and 5PM to arrange for our retrieval of the documents at no cost to you. Content Version: 12.2 ?? [id number] [employer]. Care instructions adapted under license by [facility]. If you have questions about a medical condition or this instruction, always ask your healthcare professional. [employer] disclaims any warranty or liability for your use of this information. documented in this encounter Medications at Time of Discharge Medication Sig Dispensed Refills Start Date End Date sacubitriL-valsartan (Entresto) 24-26 mg tabletIndications:HFr EF (heart [...] meter kit. 1 each 0 12/14/2014 Insulin [place], Disposable, (BD INSULIN PEN NEEDLE UF MINI) 31 x 07/23 NeedleIndications:Josefina betes mellitus type 2, uncontrolled 1 Device by [facility].(Non-Drug; Combo Route) route 3 times daily as needed. 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 ASA 3 - Patient with moderate systemic disease with functional limitations Sedation Plan: anesthesia Risks and benefits of the procedure explained to the patient. Consent form signed and included in the patient's chart. Parminder Mao MD Advanced Endoscopy Fellow Gastroenterology & Hepatology documented in this encounter Plan of Treatment Upcoming Encounters Date Type Department Care Team (Late st Contact Info) Description 12/07/2023 1:00 PM EDT Appointment [place] [address] 12/07/2023 2:00 PM EDT Office Visit [place] [phone] Geronimo Mojica MD [facility] [place] [address] 12/27/2023 11:30 AM EDT Office [place] [phone] Noe Cuenca MD [facility] [place] [address] Scheduled Procedures Name Priority Associated Diagnoses Date/Ti me EGD, UPPER GI ENDOSCOPY (WRV U 2.09) Peptic stricture of esophagus documented as of this encounter Procedures Procedure Name Priority Date/Time Associated Diagnosis Comments Up Gi Endoscopy, Ball Dil, 30Mm (46008) 08/02/2023 11:01 AM EDT Peptic stricture of esophagus UPPER GI ENDOSCOPY Routine 08/02/2023 10 :49 AM EDT POCT GLUCOSE Routine 08/02/2023 9:54 AM EDT documented in this encounter Results * UPPER GI ENDOSCOPY (08/02/2023 10:49 AM EDT) [facility] UPPER GI ENDOSCOPY [facility] Procedure Date: 08/02/2023 10:49 AM ? Patient Name: Jennifer Irving ? Date of : 1960 ? Age: 63 ? Order #: [id number] ? Instrument Name: [id number] ? Procedure: ? Upper GI endoscopy Indications: ? Peptic Stricture Providers: ? David Dejesus MD, Parminder Craig ? Ayo Mao, ? Tapan Blanchard MD: ?Ana Keith: ? General Anesthesia Complications: ? No immediate [...] the mouth, and ? advanced to the middle third of ? esophagus The upper GI endoscopy ? was accomplished without ? difficulty. The patient tolerated ? the procedure well. ? Findings: ? The esophagus was normal until 25 cm. The patient's ? known stricture was visualized and was dilated ? serially using a 8-9-10 and then a 10-11-12 mm ? balloon. There were multiple rents following ? dilation. We could not advance the gastroscope across ? the stricture. ? Moderate Sedation: ? Not applicable - See Anesthesia documentation Impression: ?- Esophageal stricture at 25 cm - ? dilated to 12 mm Recommendation: ?- Repeat exam in one month ? Attending Participation: ? I was present and participated during the entire ? procedure, including non-fam portions. ? ___ David Dejesus MD 08/02/2023 11:36:29 AM This report has been signed electronically. Number of Addenda: 0 Note Initiated On: 08/02/2023 10:49 AM PROVATION 08/02/2023 10:4 9 AM EDT Ana Gillespie COST REDUCTION ENGINEER GENERAL SURGICAL ORD ERABLES PROVATION * POCT Glucose (08/02/2023 9:54 AM EDT) POC Glucose 81 65 - 199 mg/dL [facility] Comment: Supplemental ranges: <140 mg/dL before meals <180 mg/dL all other times of the day Blood 08/02/2023 9:54 AM EDT 08/02/2023 9:54 AM EDT David Dejesus MD POINT OF CARE TEST ORDERABLES [facility] [place] [address] documented in this encounter Visit Diagnoses Diagnosis [...] 10:02 AM EDT 100 mL/hr 100 mL/hr documented in this encounter Active and Recently Administered Medications Times are shown in EDT. Continuous Medication Order 07/31/2023 08/01/2023 08/02/2023 lactated ringers infusion (CANCELED) 100 mL/hr, Intravenous, CONTINUOUS, Starting on Wed08/02/23 at 1000, Until Wed08/02/23 at 1231, Endoscopy (Day of Procedure) 1002 (New Bag - Prov ider: Gaby Doan RN)1122 (Paused - Provider: Ede Hughes CRNA - Comment: Switch to gravity)1123 (Restarted - Provider: Ede Hughes CRNA) documented in this encounter Care Teams Garbage Truck Driver Relationship Specialty Start Date End Date Ana Gillespie APRN [address] [place] [address] PCP - General Family Medicine 02/03/19 documented as of this encounter
--- OUTSIDE RECORDS SUMMARY | 2023-12-03 14:54 | XMS_ITS | Encounter Summary ---
Author Organization [facility] [place] [address] Care Team Providers Care Residential Supervisor Name Role Phone Ana Gillespie APRN Primary Care Provider [phone] Encounter Details Date Type Department Care Team (Late Contact Info) Description 08/02/2023 Orders [place] [phone] David Dejesus MD [facility] DR [place] [address] Peptic stricture of esophagus Social History Tobacco [...] 12/07/2023 1:00 PM EDT Appointment [place] [phone] 12/07/2023 2:00 PM EDT Office [place] [phone] Geronimo Mojica MD [facility] [address] [place]ACIC [place] [address] 12/27/2023 11:30 AM EDT Office [place] [phone] Noe Cuenca MD [facility] DR PULMONARY [place] [address] Scheduled Procedures Name Priority Associated Diagnoses Date/Ti me EGD, UPPER GI ENDOSCOPY (WRV U 2.09) Peptic stricture of esophagus documented as of this encounter Visit Diagnoses Diagnosis Peptic stricture of esophagus Stricture and stenosis of esophagus documented in this encounter Care Teams Residential Supervisor Relationship Specialty Start Date End Date Ana Gillespie APRN [address] [place] [address] PCP - General Family Medicine 02/03/19 documented as of this encounter
--- OUTSIDE RECORDS SUMMARY | 2023-12-03 14:54 | XMS_ITS | Encounter Summary ---
[place] [address] Care Team Providers Care R D Intern Name Role Phone Ana Gillespie VAUGHN Primary Care Provider [phone] Encounter Details Date Type Department Care Team (Late Contact Info) Description 09/02/2023 Telephone [place] [address] Chiquita James, RN Social History [...] Telephone Encounter - Chiquita James, RN - 09/02/2023 9:36 AM EDT Incoming VM from Jennifer's Cam[facility] to relay they will not be able to come for her endoscopy today. Campos states Jennifer is sick and vomiting. They will need to reschedule. Forwarded documented in this encounter Plan of Treatment Upcoming Encounters Date Type Department Care Team (Late st Contact Info) Description 12/07/2023 1:00 PM EDT Appointment [place] [address] 12/07/2023 2:00 PM EDT Office [place] [address] [facility] [place] [address] 12/27/2023 11:30 AM EDT Office Visit Pulmonology at [facility] [place] [address] Noe Cuenca MD [facility] [place] [address] Scheduled Procedures Name Priority Associated Diagnoses Date/Ti me EGD, UPPER GI ENDOSCOPY (WRV U 2.09) Peptic stricture of esophagus documented as of this encounter Visit Diagnoses Not on filedocumented in this encounter Care Teams R D Intern Relationship Specialty Start Date End Date Ana Gillespie APRN [address] [place] [address] PCP - General Family Medicine 02/03/19 documented as of this encounter
--- OUTSIDE RECORDS SUMMARY | 2023-12-03 14:54 | XMS_ITS | Encounter Summary ---
[place] [address] Care Team Providers Care Wire Coater Name Role Phone Ana Gillespie EXECUTIVE ADMINISTRATOR Primary Care Provider [phone] Encounter Details Date Type Department Care Team (Late st Contact Info) Description 05/27/2023 Telephone [place] [address] Chiquita James, RN Social History [...] Telephone Encounter - Chiquita James, RN - 05/27/2023 11:51 AM EST Incoming VM from Jennifer Gasca's requesting to cancel her EGD scheduled for tomorrow 05/28. They would like a call back to re-schedule Forwarded documented in this encounter Plan of Treatment Upcoming Encounters Date Type Department Care Team (Late st Contact Info) Description 12/07/2023 1:00 PM EDT Appointment [place] [address] 12/07/2023 2:00 PM EDT Office Visit [place] [address] Geronimo Mojica MD [facility] [place] [address] 12/27/2023 11:30 AM EDT Office [place] [address] Noe Cuenca MD [facility] [place] [address] Scheduled Procedures Name Priority Associated Diagnoses Date/Ti me EGD, UPPER GI ENDOSCOPY (WRV U 2.09) Peptic stricture of esophagus documented as of this encounter Visit Diagnoses Not on filedocumented in this encounter Care Teams Wire Coater Relationship Specialty Start Date End Date Ana Gillespie APRN [address] [place] [address] PCP - General Family Medicine 02/03/19 documented as of this encounter
--- OUTSIDE RECORDS SUMMARY | 2023-12-03 14:54 | XMS_ITS | Encounter Summary ---
Author Organization [facility] Address [facility] [place] [address] Care Team Providers Care Cage Supervisor Name Role Phone Ana Gillespie APRN Primary Care Provider [phone] Reason for Referral * Consultation (Routine) - Authorized Specialty Diagnoses / Procedures Referred By Esperanza rodríguez Referred To Contact Pulmonology Diagnoses Hypoxemia Ana Gillespie APRN [address] [place] [address] Noe Cuenca MD [facility] [place] [address] Referral ID Status Reason Start Date Expiration Date Visits Requested Visits Authorized [id number] Authorized Consult, Test & Treat PCP Updated and/or Approved 05/27/2023 05/26/2024 6 6 Encounter Details Date Type Department Care Team (Late Contact Info) Description 05/27/2023 Transcribe Orders eD Incoming Referrals [phone] Ana Gillespie APRN [address] [place] [address] Hypoxemia Social History Tobacco Use Types Packs/Day Years [...] 12/07/2023 1:00 PM EDT Appointment [place] [address] 12/07/2023 2:00 PM EDT Office Visit [place] [address] Geronimo Mojica MD [facility] [address] [place] [address] 12/27/2023 11:30 AM EDT Office [place] [address] Noe Cuenca MD [facility] DR [place] [address] Scheduled Procedures Name Priority Associated Diagnoses Date/Ti me EGD, UPPER GI ENDOSCOPY (WRV U 2.09) Peptic stricture of esophagus Scheduled Referrals Name Type Priority Associated Diagnoses Order Schedule Referral to Pulmonology Outpatient Referral Routine Hypoxemia Ordered: 05/27/2023 documented as of this encounter Visit Diagnoses Diagnosis Hypoxemia documented in this encounter Care Teams Cage Supervisor Relationship Specialty Start Date End Date Ana Gillespie APRN [address] [place] [address] PCP - General Family Medicine 02/03/19 documented as of this encounter
--- OUTSIDE RECORDS SUMMARY | 2023-12-03 14:54 | XMS_ITS | Encounter Summary ---
Author Organization [facility] Address [facility] [place] [address] Care Team Providers Care Family Engagement Specialist Name Role Phone Ana Gillespie VAUGHN Primary Care Provider [phone] Encounter Details Date Type Department Care Team (Latest Contact Info) Description 08/02/2023 8:59 AM EDT - 08/02/2023 12:45 PM EDT Hospital En[place] [phone] David Dejesus MD [facility] [place] [address] Discharge Disposition: Home Social History Tobacco Use [...] Sign Reading Time Taken Comments Blood Pressure 121/61 08/02/2023 12:10 PM EDT Pulse 55 08/02/2023 9:45 AM EDT Temperature 36.4 ??C (97.6 ??F) 08/02/2023 9:45 AM ED T Respiratory Rate 17 08/02/2023 12:10 PM EDT Oxygen Saturation 100% 08/02/2023 12:10 PM EDT Inhaled Oxygen Concentration - - [...] the day after the procedure, use an hgkf-xeh-gbzyfji spray to numb your throat. Sucking on [...] occurs, please contact your Doctor. Please call [phone] before 8pm Mon-Fri with problems, questions or concerns. If you call after 8pm or on weekends, call the Hospital at [phone] and ask to speak to the Financial Service Representative salesperson men's furnishings and the package line operator will contact that person for you. When should you call for help? Call [phone] anytime you think you may need emergency [...] any problems. Where can you learn more? [facility] View your After Visit Summary and more online at [email or web address] If you would like to provide feedback about your hospital experience, please call the Office of Patient and Family Relations at . If you have received this After Visit Summary in error, please immediately return it in person to the department, or notify the [facility] Privacy Office by calling toll free at between the hours of 8AM and 5PM to arrange for our retrieval of the documents at no cost to you. Content Version: 12.2 ?? [id number] [employer]. Care instructions adapted under license by [facility]. If you have questions about a medical condition or this instruction, always ask your healthcare professional. [employer] disclaims any warranty or liability for your [...] the day after the procedure, use an avkf-iai-msjvtpv spray to numb your throat. Sucking on [...] occurs, please contact your Doctor. Please call [phone] before 8pm Mon-Fri with problems, questions or concerns. If you call after 8pm or on weekends, call the Hospital at [phone] and ask to speak to the Financial Service Representative salesperson men's furnishings and the package line operator will contact that person for you. When should you call for help? Call [phone] anytime you think you may need emergency [...] any problems. Where can you learn more? [facility] View your After Visit Summary and more online at [email or web address] If you would like to provide feedback about your hospital experience, please call the Office of Patient and Family Relations at . If you have received this After Visit Summary in error, please immediately return it in person to the department, or notify the [facility] Privacy Office by calling toll free at between the hours of 8AM and 5PM to arrange for our retrieval of the documents at no cost to you. Content Version: 12.2 ?? [phone] [employer]. Care instructions adapted under license by [facility]. If you have questions about a medical condition or this instruction, always ask your healthcare professional. [employer] disclaims any warranty or liability for your [...] meter kit. 1 each 0 12/14/2014 Insulin [place], Disposable, (BD INSULIN PEN NEEDLE UF MINI) 31 x /16 NeedleIndications:Josefina betes mellitus type 2, uncontrolled 1 Device by [facility].(Non-Drug; Combo Route) route 3 times daily as [...] and included in the patient's chart. Parminder aMo MD Advanced Endoscopy Fellow Gastroenterology & Hepatology documented in this encounter Plan of Treatment Upcoming Encounters Date Type Department Care Team (Late st Contact Info) Description 12/07/2023 1:00 PM EDT [place] [address] 12/07/2023 2:00 PM EDT Office [place] [address] Geronimo Mojica MD [facility] [place] [address] 12/27/2023 11:30 AM EDT [place] [phone] Noe Cuenca MD [facility] [place] [address] Scheduled Procedures Name Priority Associated Diagnoses Date/Ti me EGD, UPPER GI ENDOSCOPY (WRV U 2.09) Peptic stricture of esophagus documented as of this encounter Procedures Procedure Name Priority Date/Time Associated Diagnosis Comments Up Gi Endoscopy, Rick Chavez, 30Mm ([id number]) 08/02/2023 11:01 AM EDT Peptic stricture of esophagus UPPER GI ENDOSCOPY Routine 08/02/2023 10 :49 AM EDT POCT GLUCOSE Routine 08/02/2023 9:54 AM EDT documented in this encounter Results * UPPER GI ENDOSCOPY (08/02/2023 10:49 AM EDT) [facility] UPPER GI ENDOSCOPY [facility] Endoscopy Procedure Date: 08/02/2023 10:49 AM ? Patient Name: Jennifer Irving ? N: [id number] ? Date of : 1960 ? Age: 63 ? Order #: [id number] ? Instrument Name: [id number] ? Procedure: ? Upper GI endoscopy Indications: ? Peptic Stricture Providers: ? David Dejesus MD, Parminder Craig ? Ayo Mao, ? Tapan Camargo Referring : ?Ana Keith: ? General Anesthesia Complications: ? [...] 08/02/2023 10:4 9 AM EDT Ana Gillespie APRN GENERAL SURGICAL ORD ERABLES PROVATION * POCT Glucose (08/02/2023 9:54 AM EDT) POC Glucose 81 65 - 199 mg/dL [facility] Comment: Supplemental ranges: <140 mg/dL before meals <180 mg/dL all other times of the day Blood 08/02/2023 9:54 AM EDT 08/02/2023 9:54 AM EDT David Dejesus MD POINT OF CARE TEST ORDERABLES [facility] [place] [address] documented in this encounter Visit Diagnoses Not [...] CRNA) documented in this encounter Care Teams Family Engagement Specialist Relationship Specialty Start Date End Date Ana Gillespie APRN [address] [place] [address] PCP - General Family Medicine 02/03/19 documented as of this encounter
--- OUTSIDE RECORDS SUMMARY | 2023-12-03 14:54 | XMS_ITS | Encounter Summary ---
Author Organization [facility] [place] [address] Care Team Providers Care Airline Hostess Name Role Phone Ana Gillespie HUMAN RESOURCES PROJECT MANAGER Primary Care Provider [phone] Encounter Details Date Type Department Care Team (Late st Contact Info) Description 08/11/2023 Telephone Gastroenterology at [facility] [place] [address] Parris Maravilla Social History Tobacco Use Types [...] Telephone Encounter - Parris Maravilla - 08/11/2023 12:09 PM EDT Jennifer Irving [id number] Diagnosis/Indication: shedule one month - peptic stricture dilation Please review patient chart to confirm if [...] had a/an Upper Endoscopy before? Yes: Date 08/02/23 If yes, did you have any problems [...] regarding the gender of your provider? Yes Oleg ANESTHESIA QUESTIONS (YES to any question, please [...] up during procedure, extreme confusion after, etc.) Yes pneumonia with 3 procedures here Do you have a diagnosis of Obstructive [...] procedure? No You must have a responsible constitution party who will drive you to your procedure, stay on campus for the entire duration of your procedure, and drive you home from your procedure. Who will likely be your student truck driver for the procedure? *Please Verify the [...] 1:00 PM EDT Appointment [place] [address] 12/07/2023 2:00 PM EDT Office [place] [address] Geronimo Mojica MD [facility] [place] [address] 12/27/2023 11:30 AM EDT Office [place] [address] Noe Cuenca MD [facility] [place] [address] Scheduled Procedures Name Priority Associated Diagnoses Date/Ti me EGD, UPPER GI ENDOSCOPY (WRV U 2.09) Peptic stricture of esophagus documented as of this encounter Visit Diagnoses Not on filedocumented in this encounter Care Teams Airline Hostess Relationship Specialty Start Date End Date Ana Gillespie APRN [address] [place] [address] PCP - General Family Medicine 02/03/19 documented as of this encounter
--- OUTSIDE RECORDS SUMMARY | 2023-12-03 14:54 | XMS_ITS | Encounter Summary ---
Author Organization [facility] Address [facility] [place] [address] Care Team Providers Care Soil Engineer Name Role Phone Ana Gillespie APRN Primary Care Provider [phone] Encounter Details Date Type Department Care Team (Late st Contact Info) Description 08/25/2023 Telephone [place] [address] Niru Mary Social History Tobacco Use Types [...] 12/07/2023 1:00 PM EDT Appointment [place] [address] 12/07/2023 2:00 PM EDT Office Visit [place] [address] Geronimo Mojica MD [facility] [address] 12/27/2023 11:30 AM EDT Office [place] [address] Noe Cuenca MD [facility] DR PULMONARY MEDICINE [place], [place] [phone] Scheduled Procedures Name Priority Associated Diagnoses Date/Ti me EGD, UPPER GI ENDOSCOPY (WRV U 2.09) Peptic stricture of esophagus documented as of this encounter Visit Diagnoses Not on filedocumented in this encounter Care Teams Soil Engineer Relationship Specialty Start Date End Date Ana Gillespie APRN [address] [place] [address] PCP - General Family Medicine 02/03/19 documented as of this encounter
--- OUTSIDE RECORDS SUMMARY | 2023-12-03 14:54 | XMS_ITS | Encounter Summary ---
Author Organization [facility] Address [facility] [place] [address] Care Team Providers Care Project Reservoir Engineer Name Role Phone Ana Gillespie APRN Primary Care Provider [phone] Encounter Details Date Type Department Care Team (Late st Contact Info) Description 07/22/2023 Telephone [place] [address] Niru Mary Social History Tobacco Use Types [...] 12/07/2023 1:00 PM EDT Appointment [place] [address] 12/07/2023 2:00 PM EDT Office [place] [address] Geronimo Mojica MD [facility] [place] [address] 12/27/2023 11:30 AM EDT Office [place] [address] Noe Cuenca MD [facility] DR PULMONARY MEDICINE [place], [place] [phone] Scheduled Procedures Name Priority Associated Diagnoses Date/Ti me EGD, UPPER GI ENDOSCOPY (WRV U 2.09) Peptic stricture of esophagus documented as of this encounter Visit Diagnoses Not on filedocumented in this encounter Care Teams Project Reservoir Engineer Relationship Specialty Start Date End Date Ana Gillespie APRN [address] [place] [address] PCP - General Family Medicine 02/03/19 documented as of this encounter
--- OUTSIDE RECORDS SUMMARY | 2023-12-03 14:54 | XMS_ITS | Encounter Summary ---
Author Organization [facility] Address [facility] [place] [address] Care Team Providers Care Nuclear Medicine Chief Technologist Name Role Phone Ana Gillespie APRN Primary Care Provider [phone] Encounter Details Date Type Department Care Team (Late st Contact Info) Description 06/01/2023 9:02 AM EST Anesthesia [place] [phone] Kit Dutta MD [facility] [place] [address] Nichelle Dodson MD [facility] [place] [address] Anesthesia Record Procedure Summary Procedure Name Responsible Anesthesiologist Anesthesia Start Time Anesthesia Stop Time EGD,WITH DILATION ESOPHAGUS WITH BALLOON,< 30 MM (WRVU 2.67) (Trunk) Kit Dutta MD 06/01/23 0902 06/01/23 0952 Events Date Time Event Comment 06/01/2023 0840 0902 AN Verify 0902 Start 0903 An Start Data 0908 An Induction 0911 An Intubation 0914 Anesthesia Ready 0938 Extubation/LMA Out 0940 Quick Note Endo PACU hold 0952 an stop data 0952 Recovery or ICU Handoff Sayra ent care was transferred to the destination unit staff after review of the patient's medical history, current anesthetic/surgical status and plan, according to the Provider Handoff Checklist. 0952 Stop Meds Name Total IV Lidocaine 50 mg Propofol 200 mg Propofol INF 310.7 mg Ondansetron 4 mg succinylcholine 80 mg famotidine (Pepcid) (10 mg/mL) injection 20 mg 20 mg ciprofloxacin 400 mg lactated ringers infusion 0 mL * Agents Name O2 * Blood No blood administrations on file. Lines, Drains, and Airways Type Details Placement Removal Enterostomy Tube 03/10/23; 161; gastrostomy tube with balloon (16F); LUQ (left upper quadrant); feeding; MD Chambers G-Tube exchange 16Fr. 07/09/23, 09/17/23 exchanged with 16fr by ROSLYN Cooper, 10/14/23 Tube exchange 16 fr, MD Hart 03/10/23 1618 by Sergey Jordan RN PIV 06/01/23; 0836; [id number] catheter system; 22 gauge, 1 in length; cephalic vein (lateral side of arm), left; DR DUTTA; intradermal injection; 3 (1 by rhys reyes 2 by su); 06/01/23; 1025 06/01/23 0836 by Mary Peace RN 06/01/23 1025 by Ayo Murphy RN ETT Mask Ventilation: Ea sy (1); ETT Type: Cuffed; ETT Size: 7 mm; Mac Blade: 3; Notes: Asleep; Attempts: 1; Laryngoscopy Grade: 1; ETT Placement Verified By: Auscultation, Capnometry, Visual; Secured at Teeth: 22 cm; Removal Date: 06/01/23; Removal Time: 93706/01/23 0904 by Cristine Gomez CRNA 06/01/23 0938 by Cristine Gomez CRNA documented in this encounter Social History [...] OR Notes * Anesthesia Postprocedure Evaluation - Kit Dutta MD - 06/01/2023 10:34 AM EST Department of Anesthesiology Post-procedure Note Patient: Jennifer Irving Procedure Summary Date: 06/01/23 Room / Location: [facility] / [facility] Anesthesia Start: 901 Anesthesia Stop: 951 Procedure: EGD,WITH DILATION ESOPHAGUS WITH BALLOON,< 30 MM (WRVU 2.67) (Trunk) Diagnosis: Peptic stricture of esophagus (repeat petic stricture dilation - please schedule within two weeks) Surgeons: David Dejesus MD Responsible Provider: Kit Dutta MD Anesthesia Type: MAC ASA Status: 3 All Anesthesia Providers: Anesthesiologist: Kit Dutta MD INSPECTOR CRYSTAL: Cristine Gomez CRNA Vitals Value Taken Time BP 107/45 06/01/23 1020 Temp Pulse Resp 18 06/01/23 1020 SpO2 94 % 06/01/23 1021 Pain Level 0 06/01/23 1020 Vitals shown include unfiled device data. Patient Location: PACU/[facility] Level of Consciousness: Conscious but Sleepy Pain Management: Satisfactory Analgesia PONV: None Cardiovascular Status: At Baseline Respiratory Status: At Baseline Postoperative Fluid Status: Intravascular EUvolemia Possible Anesthetic Complications: NONE apparent at time of evaluation Final Primary Anesthesia Type: General (The anesthetic type performed was the same as planned.) Comments: * Anesthesia Preprocedure Evaluation - Kit Dutta MD - 05/17/2023 8:44 PM EST Pre-Anesthesia Evaluation for: Jennifer Irving a 62 y.o. female. Procedure(s): EGD, UPPER GI ENDOSCOPY [...] IR G-Tube Check/Change 11/27/2022 Hang Cooper, ROSLYN [facility] ??? IR G-TUBE CHECK/CHANGE 03/10/2023 IR G-Tube Check/Change 03/10/2023 Geronimo Chambers, [facility] ??? IR G-TUBE CHECK/CHANGE 04/06/2023 IR G-Tube Check/Change 04/06/2023 Gavin Carrillo MD [facility] ??? IR G-TUBE CHECK/CHANGE 05/09/2023 IR G-Tube Check/Change [facility] ??? IR G-TUBE PLACEMENT 09/11/2022 IR G-Tube Placement 09/11/2022 Moustapha Hart MD [facility] ??? IR SUTURE RELEASE 09/25/2022 IR Suture Release 09/25/2022 Yoselin Ghosh, ROSLYN [facility] ??? PERCUTANEOUS GASTROSTOMY N/A 09/11/2022 PERCUTANEOUS GASTROSTOMY performed by Aiden Flores MD at [facility] ??? PRO COLONOSCOPY, BIOPSY N/A 03/20/2016 COLONOSCOPY FLEXIBLE, WITH BX performed by David Dejesus MD at [facility] END[facility]COPY ??? PRO COLONOSCOPY, DIAGNOSTIC N/A 03/01/2020 COLONOSCOPY, DIAGNOSTIC performed by David Dejesus MD at [facility] END[facility]COPY ??? PRO ENDOSCOPIC US EXAM, ESOPH N/A 03/31/2022 UPPER EUS- ENDOSCOPIC ULTRASOUND performed by David Dejesus MD at [facility] END[facility]COPY ??? PRO UP GI ENDOSCOPY, BALL DIL, 30MM N/A 12/24/2022 EGD,WITH DILATION ESOPHAGUS WITH BALLOON,< 30 MM (WRVU 2.67) performed by David Dejesus [facility]at [facility] ??? PRO UP GI ENDOSCOPY, BALL DIL, 30MM N/A 01/12/2023 EGD,WITH DILATION ESOPHAGUS WITH BALLOON,< 30 MM (WRVU 2.67) performed by [facility] ??? PRO UP GI ENDOSCOPY, BALL DIL, 30MM N/A 02/26/2023 EGD,WITH DILATION ESOPHAGUS WITH BALLOON,< 30 MM (WRVU 2.67) [facility] ??? PRO UP GI ENDOSCOPY, BALL DIL, 30MM N/A 03/16/2023 EGD,WITH DILATION ESOPHAGUS WITH BALLOON,< 30 MM (WRVU 2.67) performed by David Dejesus [facility] ENDOSCOPY ??? PRO UP GI ENDOSCOPY, BALL DIL, 30MM N/A 03/30/2023 EGD,WITH DILATION ESOPHAGUS WITH BALLOON,< 30 MM (WRVU 2.67) performed by David Dejesus [facility] ENDOSCOPY ??? PRO UP GI ENDOSCOPY, BALL DIL, 30MM N/A 04/30/2023 EGD,WITH DILATION ESOPHAGUS WITH BALLOON,< 30 MM (WRVU 2.67) performed by David Dejesus [facility] ENDOSCOPY ??? PRO UPPER GI ENDOSCOPY, BIOPSY N/A 04/03/2014 UPPER GASTROINTESTINAL ENDOSCOPY,WITH BIOPSY SINGLE OR MULTIPLE performed by David Dejesus [facility] ENDOSCOPY ??? PRO UPPER GI ENDOSCOPY, BIOPSY N/A 03/20/2016 EGD WITH BIOPSY performed by David Dejesus MD at [facility] ENDOSCOPY ??? PRO UPPER GI ENDOSCOPY, BIOPSY N/A 11/22/2018 EGD WITH BIOPSY (WRVU 2.49) performed by David Dejesus MD at [facility] ENDOSCOPY ??? PRO UPPER GI ENDOSCOPY, BIOPSY N/A 03/01/2020 UPPER GASTROINTESTINAL ENDOSCOPY,WITH BIOPSY SINGLE OR MULTIPLE (WRVU 2.49) performed by David Dejesus MD at [facility] ENDOSCOPY ??? PRO UPPER GI ENDOSCOPY, BIOPSY N/A 09/23/2021 EGD WITH BIOPSY (WRVU 2.49) performed by David Dejesus MD at [facility] ENDOSCOPY ??? PRO UPPER GI ENDOSCOPY, BIOPSY N/A 03/31/2022 EGD WITH BIOPSY (WRVU 2.49) performed by David Dejesus MD at [facility] ENDOSCOPY ??? PRO UPPER GI ENDOSCOPY, BIOPSY N/A 07/03/2022 EGD WITH BIOPSY (WRVU 2.49) performed by David Dejesus MD at [facility] ENDOSCOPY ??? PRO UPPER GI ENDOSCOPY, DIAGNOSTIC N/A 04/03/2014 EGD, UPPER GI ENDOSCOPY performed by David Dejesus MD at [facility] ENDOSCOPY ??? PRO UPPER GI ENDOSCOPY, DIAGNOSTIC N/A 03/01/2020 EGD, UPPER GI ENDOSCOPY performed by David Dejesus MD at [facility] ENDOSCOPY ??? PRO UPPER GI ENDOSCOPY, DIAGNOSTIC N/A 09/09/2022 EGD, UPPER GI ENDOSCOPY (WRVU 2.09) performed by Ayo Russ MD at [facility] MA[facility] OR Social History Tobacco Use ??? Smoking status: Former Years: 11 Types: Cigarettes Quit date: 02/26/2021 Years since quittin.2 ??? Smokeless tobacco: Never Substance Use Topics ??? Alcohol use: Not Currently Social History Substance and Sexual Activity Drug Use Never Allergies Allergen Reactions ??? Meperidine Hcl Nausea And Vomiting CIS - violently ill ??? Metformin Other (See Comments) Severe diarrhea Medications: MAR and/or home medications have been reviewed. Physical Exam: Preprocedure Vitals Current as of 05/17/232043 No BP, pulse, respiration, SpO2, or temperature recorded. Height: Weight: BMI: IBW: Airway Assessment: Mallampati: II TM distance: >3 FB Neck ROM: full Cardiovascular Assessment: Rhythm: regular Pulmonary Assessment: breath sounds clear to auscultation pulmonary exam normal Dental Assessment: Misc Assessment: Last Filed Perioperative Cognitive Screening None Anesthesia Plan: ASA 3 MAC, with a(n) intravenous induction 62F former smoker with peptic stricture of esophagus presenting for repeat EGD and dilation. PMH notable for GERD, Farrell's, T2DM, obesity (BMI 28), bipolar disorder, neuroleptic-induced parkinsonism, stress cardiomyopathy (EF 32%). Tolerated multiple prior procedures with MAC. Required ETT for prior 2 procedures due to food in esophagus and h/o aspiration PNA. G1v MAC 3 Plan: GA w/ ETT I have discussed the case with the resident, reviewed the pertinent details in the chart, interviewed and examined the patient. I agree with the documented history, exam findings and management plan. Kit Dutta MD Region - Other Informed Consent: Plan discussed with INSPECTOR CRYSTAL. Anesthesia Screening documented in this encounter Plan of Treatment Upcoming Encounters Date Type Department Care Team (Late st Contact Info) Description 12/07/2023 1:00 PM EDT Appointment [place] [phone] 12/07/2023 2:00 PM EDT Office [place] [phone] Geronimo Mojica MD [facility] [place] [address] 12/27/2023 11:30 AM EDT Office [place] [phone] Noe Cuenca MD [facility] [place] [address] Scheduled Procedures Name Priority Associated [...] 200 mL infusion Intravenous, PRN, Starting on Wed06/01/23 at 0908, Until Wed06/01/23 at 1002, Administer over 60 Minutes, Anesthesia Intra-op Given 06/01/2023 9:08 AM EST 400 mg famotidine (Pepcid) (10 mg/mL) injection 20 mg 20 mg, Intravenous, ONCE, 1 dose, On Wed06/01/23 at 0900 Given 06/01/2023 9:08 AM EST 20 mg lidocaine (pf) (Xylocaine) (20 mg/mL) 2% injection syringe Intravenous, PRN, Starting on Wed06/01/23 at 0903, Until Wed06/01/23 at 1002, Anesthesia Intra-op, Routine Given 06/01/2023 9:03 AM EST 50 mg ondansetron (pf) (Zofran) (2 mg/mL) injection Intravenous, PRN, Starting on Wed06/01/23 at 0931, Until Wed06/01/23 at 1002, Anesthesia Intra-op, Routine Given 06/01/2023 9:31 AM EST 4 mg propofoL (Diprivan) (10 mg/mL) infusion Intravenous, CONTINUOUS PRN, Starting on Wed06/01/23 at 0903, Until Wed06/01/23 at 1002, Anesthesia Intra-op, Routine Rate/Dose Change 06/01/2023 9:19 AM EST 250 mcg/kg/min 80.7 mL/hr Rate/Dose Change 06/01/2023 9:12 AM EST 200 mcg/kg/min 64. 56 mL/hr New Bag 06/01/2023 9:03 AM EST 125 mcg/kg/min 40.35 mL/ hr propofoL (Diprivan) 10 mg/mL bolus injection (Anesthesia) Intravenous, PRN, Starting on Wed06/01/23 at 0903, Until Wed06/01/23 at 1002, Anesthesia Intra-op Given 06/01/2023 9:18 AM EST 50 mg Given 06/01/2023 9:03 AM EST 150 mg succinylcholine (Anectine;Quelicin) (20 mg/mL) injection Intravenous, PRN, Starting on Wed06/01/23 at 0903, Until Wed06/01/23 at 1002, Anesthesia Intra-op, Routine Given 06/01/2023 9:03 AM EST 80 mg documented in this encounter Care Teams Nuclear Medicine Chief Technologist Relationship Specialty Start Date End Date Ana Gillespie APRN [address] [place] [address] PCP - General Family Medicine 02/03/19 documented as of this encounter
--- OUTSIDE RECORDS SUMMARY | 2023-12-03 14:54 | XMS_ITS | Encounter Summary ---
Author Organization [facility] [place] [address] Care Team Providers Care Survey Technician Name Role Phone Ana Gillespie APRN Primary Care Provider [phone] Encounter Details Date Type Department Care Team (Late st Contact Info) Description 07/06/2023 Telephone Cardiology at [address] [phone] Chiquis Jean, RN Social History Tobacco Use [...] encounter Miscellaneous Notes * Telephone Encounter - Nicole Guillory RN - 08/04/2023 3:24 PM EDT Records have been received and scanned to chart. Patient has pending apt with Dr. Hernandez on 10/08/23. Nicole Guillory RN, BSN Ambulatory Cardiology Department * Telephone Encounter - Chiquis Jean RN - 07/06/2023 3:36 PM EST RTC to Mr Irving regarding his message stating Mrs Irving was admitted to [facility] over this past weekend. He states an EKG and an Echocardiogram were done. He is seeking to know if these records have been received, and to make an appointment for follow upwith Dr Hernandez. Chiquis Jean (Jodie), RN, BSN Cardiology Ambulatory Clinic documented in this encounter Plan of Treatment Upcoming Encounters Date Type Department Care Team (Late st Contact Info) Description 12/07/2023 1:00 PM EDT Appointment Pulmonology at [place] [phone] 12/07/2023 2:00 PM EDT Office Visit Thoracic Surgery at [place] [phone] Geronimo Mojica MD [facility] [place] [address] 12/27/2023 11:30 AM EDT Office Visit Pulmonology at [place] [phone] Noe Cuenca MD [facility] [place] [address] Scheduled Procedures Name Priority Associated Diagnoses Date/Ti me EGD, UPPER GI ENDOSCOPY (WRV U 2.09) Peptic stricture of esophagus documented as of this encounter Visit Diagnoses Not on filedocumented in this encounter Care Teams Survey Technician Relationship Specialty Start Date End Date Ana Gillespie APRN [address] [place] [address] PCP - General Family Medicine 02/03/19 documented as of this encounter
--- OUTSIDE RECORDS SUMMARY | 2023-12-03 14:54 | XMS_ITS | Encounter Summary ---
Author Organization [facility] Address [facility] [place] [address] Care Team Providers Care Coagulating Operator Name Role Phone Ana Gillespie VAUGHN Primary Care Provider [phone] Encounter Details Date Type Department Care Team (Latest Contact Info) Description 06/01/2023 7:00 AM EST - 06/01/2023 10:36 AM EST Hospital Encounter Gastroenterology at [facility] [place] [address] David Dejesus MD [facility] [place] [address] Discharge Disposition: Home Social History Tobacco Use [...] Sign Reading Time Taken Comments Blood Pressure 107/45 06/01/2023 10:20 AM EST Pulse 55 06/01/2023 7:57 AM EST Temperature - - Respiratory Rate 18 06/01/2023 10:20 AM EST Oxygen Saturation 95% 06/01/2023 10:20 AM EST Inhaled Oxygen Concentration - - Weight 66.2 kg (146 lb) 06/01/2023 7:57 AM EST Height 152.4 cm (5') 06/01/2023 7:57 AM EST Body Mass Index 28.51 06/01/2023 7:57 AM EST documented in this encounter Discharge Instructions * Discharge Instructions* Ayo Murphy RN - 06/01/2023 9:54 AM EST Upper GI Endoscopy: What to Expect at [...] the day after the procedure, use an hsvw-yux-veitsan spray to numb your throat. Sucking on [...] occurs, please contact your Doctor. Please call [phone] before 8pm Mon-Fri with problems, questions or concerns. If you call after 8pm or on weekends, call the Hospital at [phone] and ask to speak to the Operations Manager Station cardiopulmonary technician and the central station operator will contact that person for you. When should you call for help? Call [phone] anytime you think you may need emergency [...] any problems. Where can you learn more? [facility] View your After Visit Summary and more online at [email or web address] If you would like to provide feedback about your hospital experience, please call the Office of Patient and Family Relations at . If you have received this After Visit Summary in error, please immediately return it in person to the department, or notify the [facility] Privacy Office by calling toll free at between the hours of 8AM and 5PM to arrange for our retrieval of the documents at no cost to you. Content Version: 12.2 ?? 2543-9853 [employer]. Care instructions adapted under license by [facility]. If you have questions about a medical condition or this instruction, always ask your healthcare professional. [employer] disclaims any warranty or liability for your use of this information. documented in this encounter Medications at Time of Discharge Medication Sig Dispensed Refills Start Date End Date ciprofloxacin (Cipro) 500 mg tablet Take 1 tablet by mouth 2 times daily. 14 tablet 06/01/2023 Miscellaneous Medical Supply KitIndications:Prima ry parkinsonism 1 Aluminum adjustable rolling walker 1 kit 05/25/2023 metoprolol succinate XL (Toprol-XL) 50 mg ER 24 hr tabletIndications:HF rEF (heart failure with reduced ejection fraction) Take [...] EC (Protonix) 40 mg Tablet, Delayed Release (E.C.)Indications:Ga stroesophageal reflux disease with esophagitis without hemorrhage Take 1 tablet by mouth 2 times daily. 180 tablet 3 10/20/2021 Blood Sugar Diagnostic (ONETOUCH ULTRA TEST) StripIndications:Typ e 2 diabetes mellitus, uncontrolled 1 each by [...] meter kit. 1 each 0 12/14/2014 Insulin [place], Disposable, (BD INSULIN PEN NEEDLE UF MINI) 31 x 07/23 NeedleIndications:Di abetes mellitus type 2, uncontrolled 1 Device by Mis.(Non-Drug; Combo Route) route 3 times daily as needed. 100 each 11 12/13/2014 sacubitriL-valsartan (Entresto) 24-26 mg tablet 1 tablet by Per G Tube route 2 times daily. 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 y/o who presents for EGD for stricture dilation. MEDICATIONS No current facility-administered medications on file prior to encounter. Current Outpatient Medications on File Prior to Encounter Medication Sig Dispense Refill metoprolol succinate XL (Toprol-XL) 50 mg ER [...] mouth 4 times daily. 360 tablet 3 atorvastatin (Lipitor) 80 mg tablet 1 tablet [...] Inject subcutaneously nightly. Lantus) 5 mL 3 sacubitriL-valsartan (Entresto) 24-26 mg tablet 1 tablet by Per G Tube route 2 times daily. 60 tablet 3 valproate (Depakene) 250 mg/5 mL (5 mL) Solution 6 mLs by Per G Tube route every 6 hours. (Patient taking differently: 300 mg by Per G Tube route every 8 hours.) 600 mL 3 pantoprazole EC (Protonix) 40 mg Tablet, Delayed Release (E.C.) Take 1 tablet by mouth 2 times daily. 180 tablet 3 insulin aspart U-100 (NovoLOG FlexPen [...] >250 GIVE 6 units 12 mL 12 Blood Sugar Diagnostic (ONETOUCH ULTRA TEST) Strip [...] glucose meter kit. 1 each 0 Insulin [place], Disposable, (BD INSULIN PEN NEEDLE UF MINI) 31 x 3/16 Needle 1 Device by [facility].(Non-Drug; Combo Route) route 3 times daily as needed. 100 each 11 PHYSICAL EXAM: Blood pressure 98/54, pulse 55, resp. rate 16, height 152.4 cm (5'), weight 66.2 kg (146 lb), SpO2 96%. GEN: Alert, cooperative. Pleasant. In NAD MP I ASA II HEENT: No oropharyngeal lesions. Neck supple. No masses. Thyroid symmetric LUNGS: CTAB CARD: RRR without m/g/r RECENT LABS Recent Results (from the past 24 hour(s)) POCT Glucose Result Value Ref Range POC Glucose 102 65 - 199 mg/dL ASSESSMENT AND PLAN Jennifer Irving is a 62 y.o. y/o who presents for endoscopic evaluation. Risks extensively discussed including bleeding, infection, reaction to anesthesia, perforation, pancreatitis (if applicable), bile duct injury (if applicable), missing a cancer (if applicable) and/or other unforseen compli cation. Consent signed and patient well informed of the risks of the procedure. documented in this encounter Miscellaneous Notes * Op Note - David Dejesus MD - 06/01/2023 9:15 AM EST [facility] Operative Note Patient Name: Jennifer Irving : [id number] MR#: [id number] Case Date: 06/01/2023 This note was entered in error documented in this encounter Plan of Treatment Upcoming Encounters Date Type Department Care Team (Late st Contact Info) Description 12/07/2023 1:00 PM EDT Appointment Pulmonology at [place] [phone] 12/07/2023 2:00 PM EDT Office [place] [address] Geronimo Mojica MD [facility] [place] [address] 12/27/2023 11:30 AM EDT Office [place] [phone] Noe Cuenca MD [facility] [address] Scheduled Procedures Name Priority Associated Diagnoses Date/Ti me EGD, UPPER GI ENDOSCOPY (WRV U 2.09) Peptic stricture of esophagus documented as of this encounter Procedures Procedure Name Priority Date/Time Associated Diagnosis Comments Up Gi Endoscopy, Ball Dil, 30Mm (65012) 06/01/2023 9:06 AM EST Peptic stricture of esophagus UPPER GI ENDOSCOPY Routine 06/01/2023 8: 54 AM EST POCT GLUCOSE Routine 06/01/2023 8:32 AM EST documented in this encounter Results * UPPER GI ENDOSCOPY (06/01/2023 8:54 AM EST) [facility] UPPER GI ENDOSCOPY [facility] Endoscopy Procedure Date: 06/01/2023 8:54 AM ? Patient Name: Jennifer Irving ? N: [id number] ? Date of : 1960 ? Age: 62 ? Order #: [id number] ? Instrument Name: [id number] ? Procedure: ? Upper GI endoscopy Indications: ? Stricture dilation Providers: ? David Dejesus MD, Gaby ? Bulk, Kenna Blanchard MD: ?Ana Keith: ? General Anesthesia [...] ? physician in the pre-procedure ? area. Airway Examination: normal ? oropharyngeal airway and neck ? mobility. Respiratory Examination: ? clear to auscultation. Prophylactic ? Antibiotics: The patient does not ? require prophylactic antibiotics. ? Prior Anticoagulants: The patient ? has taken no anticoagulant or ? antiplatelet agents. ASA Grade ? Assessment: III - A patient with ? severe systemic disease. After ? reviewing the risks and benefits, ? the patient was deemed in ? satisfactory condition to undergo ? the procedure. The anesthesia plan ? was to use monitored anesthesia ? care (MAC). Immediately prior to ? administration of medications, the ? patient was re-assessed for ? adequacy to receive sedatives. The ? heart rate, respiratory rate, ? oxygen saturations, blood pressure, ? adequacy of pulmonary [...] cancer, and adverse medication ? reactions. The Gastro scope was ? introduced through the mouth, and ? advanced to the third part of ? duodenum The upper GI endoscopy was ? accomplished without difficulty. ? The patient tolerated the procedure ? well. ? Findings: ? The peptic stricture appeared to be about 8 mm in ? diameter at initial evaluation. The stricture began ? at 25 cm and we sequentially dilated the distal and ? proximal ends using the TTS 10-11-12 mm balloon. ? There was two very large rents following dilation and ? we used an Ultraslim scope to advance through the ? stricture into the stomach. The stricture was present ? from 25-32 cm with a hiatal hernia from 36-39 cm. ? There was Farrell's without obvious nodularity from ? 25-39 cm. ? The stomach was normal. ? The examined duodenum was normal. ? Moderate Sedation: ? Not applicable - See Anesthesia documentation Impression: ?- Stricture dilation to 12 mm with ? large rent following dilation Recommendation: ?- I think we are at the maximum ? diameter to dilate at this point ? without causing perforation. I am ? going to have her come back in 6 ? weeks for possible dilation and she ? will need surveillance Farrell's ? biopsies at that time ? - Cipro 500 mg bid x 7 days ? Procedure Code(s): ? --- Professional --- ? 58036, Esophagogastroduod enoscopy, ? flexible, transoral; diagnostic, ? including collection of specimen(s) ? by brushing or washing, when ? performed (separate procedure) CPT copyright 2021 [employer]. All rights reserved. The codes documented in this report are preliminary and upon cook larder review may be revised to meet current compliance requirements. Attending Participation: ? I personally performed the entire procedure. ? ___ David Dejesus MD 06/01/2023 9:37:18 AM This report has been signed electronically. Number of Addenda: 0 Note Initiated On: 06/01/2023 8:54 AM PROVATION 06/01/2023 8:54 AM EST Ana Gillespie APRN GENERAL SURGICAL ORD ERABLES Performing Organization Address [facility] Co de Phone Number PROVATION * POCT Glucose (06/01/2023 8:32 AM EST) POC Glucose 102 65 - 199 mg/dL [facility] Comment: Supplemental ranges: <140 mg/dL before meals <180 mg/dL all other times of the day Blood 06/01/2023 8:32 AM EST 06/01/2023 8:32 AM EST David Dejesus MD POINT OF CARE TEST ORDERABLES Performing Organization Address [facility] Co de Phone Number [facility] [place] [address] documented in this encounter Visit Diagnoses Not on filedocumented in this encounter Administered Medications Inactive Administered Medications - up to 3 most recent administrations Medication Order MAR Action Action Date Dose Rate Site lactated ringers infusion 100 mL/hr, Intravenous, CONTINUOUS, Starting on Wed06/01/23 at 0815, Until Wed06/01/23 at 1025, Endoscopy (Day of Procedure) New Bag 06/01/2023 8:37 AM EST 100 mL/hr 100 mL/hr documented in this encounter Active and Recently Administered Medications Times are shown in EST. Scheduled Medication Order 05/30/2023 05/31/2023 06/01/2023 famotidine (Pepcid) (10 mg/mL) injection 20 mg (COMPLETED) 20 mg, Intravenous, ONCE, 1 dose, On Wed06/01/23 at 0900 0908 (Given - Provid er: Cristine Gomez CRNA) Continuous Medication Order 05/30/2023 05/31/2023 06/01/2023 lactated ringers infusion (CANCELED) 100 mL/hr, Intravenous, CONTINUOUS, Starting on Wed06/01/23 at 0815, Until Wed06/01/23 at 1025, Endoscopy (Day of Procedure) 0837 (New Bag - Prov ider: Mary Peace RN) documented in this encounter Care Teams Coagulating Operator Relationship Specialty Start Date End Date Ana Gillespie APRN [address] [place] [address] PCP - General Family Medicine 02/03/19 documented as of this encounter
--- OUTSIDE RECORDS SUMMARY | 2023-12-03 14:54 | XMS_ITS | Encounter Summary ---
Author Organization [facility] Address [facility] [place] [address] Care Team Providers Care Counter Stacker Name Role Phone Ana Gillespie VAUGHN Primary Care Provider [phone] Encounter Details Date Type Department Care Team (Late st Contact Info) Description 06/01/2023 9:00 AM EST - 06/01/2023 9:45 AM EST Surgery Gastroenterology at [facility] [place] [address] David Dejesus MD [facility] [place] [address] EGD,WITH DILATION ESOPHAGUS WITH BALLOON,< 30 MM [...] Sign Reading Time Taken Comments Blood Pressure 98/54 06/01/2023 7:57 AM EST Pulse 55 06/01/2023 7:57 AM EST Temperature - - Respiratory Rate 16 06/01/2023 7:57 AM EST Oxygen Saturation 96% 06/01/2023 7:57 AM EST Inhaled Oxygen Concentration - - Weight 66.2 kg (146 lb) 06/01/2023 7:57 AM EST Height 152.4 cm (5') 06/01/2023 7:57 AM EST Body Mass Index 28.51 06/01/2023 7:57 AM EST documented in this encounter Discharge Instructions * Discharge Instructions* Ayo Murphy, RN - 06/01/2023 9:54 AM EST Upper [...] the day after the procedure, use an hekw-zqv-mpyybci spray to numb your throat. Sucking on [...] occurs, please contact your Doctor. Please call [phone] before 8pm Mon-Fri with problems, questions or concerns. If you call after 8pm or on weekends, call the Hospital at [phone] and ask to speak to the Blue Split Trimmer aegis console operator track and the general utility machine operator will contact that person for you. When should you call for help? Call [phone] anytime you think you may need emergency [...] any problems. Where can you learn more? [facility] View your After Visit Summary and more online at [email or web address] If you would like to provide feedback about your hospital experience, please call the Office of Patient and Family Relations at . If you have received this After Visit Summary in error, please immediately return it in person to the department, or notify the [facility] Privacy Office by calling toll free at between the hours of 8AM and 5PM to arrange for our retrieval of the documents at no cost to you. Content Version: 12.2 ?? [id number] [employer]. Care instructions adapted under license by [facility]. If you have questions about a medical condition or this instruction, always ask your healthcare professional. [employer] disclaims any warranty or liability for your [...] meter kit. 1 each 0 12/14/2014 Insulin [place], Disposable, (BD INSULIN PEN NEEDLE UF MINI) 31 x 07/23 NeedleIndications:Di abetes mellitus type 2, uncontrolled 1 Device by [facility].(Non-Drug; Combo Route) route 3 times daily as [...] glucose meter kit. 1 each 0 Insulin [place], Disposable, (BD INSULIN PEN NEEDLE UF MINI) 31 x 3/16 Needle 1 Device by [facility].(Non-Drug; Combo Route) route 3 times daily as [...] encounter Miscellaneous Notes * Op Note - Dvaid Dejesus MD - 06/01/2023 9:15 AM EST [facility] Operative Note Patient Name: Jennifer Irving : [id number] MR#: [id number] Case Date: 06/01/2023 This note was entered in error documented in this encounter Plan of Treatment Upcoming Encounters Date Type Department Care Team (Late st Contact Info) Description 12/07/2023 1:00 PM EDT Appointment Pulmonology at [place] [phone] 12/07/2023 2:00 PM EDT Office Visit Thoracic Surgery at [place] [phone] Geronimo Mojica MD [facility] [place] [address] 12/27/2023 11:30 AM EDT Office Visit Pulmonology at [place] [phone] Noe Cuenca MD [facility] [place] [address] Scheduled Procedures Name Priority Associated Diagnoses Date/Ti me EGD, UPPER GI ENDOSCOPY (WRV U 2.09) Peptic stricture of esophagus documented as of this encounter Procedures Procedure Name Priority Date/Time Associated Diagnosis Comments Up Gi Endoscopy, Rick Chavez, 30Mm (05149) 06/01/2023 9:06 AM EST Peptic stricture of esophagus UPPER GI ENDOSCOPY Routine 06/01/2023 8: 54 AM EST POCT GLUCOSE Routine 06/01/2023 8:32 AM EST documented in this encounter Results * UPPER GI ENDOSCOPY (06/01/2023 8:54 AM EST) Pathologist [facility] UPPER GI ENDOSCOPY [facility] Endoscopy Procedure Date: 06/01/2023 8:54 AM ? Patient Name: Jennifer Irving ? N: [id number] ? Date of : 1960 ? Age: 62 ? Order #: [id number] ? Instrument Name: [id number] ? Procedure: ? Upper GI endoscopy Indications: ? Stricture dilation Providers: ? David Dejesus MD, Gaby ? Rylee, Kenna Blanchard MD: ?Ana Young Medicines: ? General Anesthesia Complications: ? No [...] Procedure Code(s): ? --- Professional --- ? 39840, Esophagogastroduod enoscopy, ? flexible, transoral; diagnostic, ? including collection of specimen(s) ? by brushing or washing, when ? performed (separate procedure) CPT copyright 2021 [employer]. All rights reserved. The codes documented in this report are preliminary and upon vending manager review may be revised to meet current compliance requirements. Attending Participation: ? I personally performed the entire procedure. ? ___ David Dejesus MD 06/01/2023 9:37:18 AM This report has been signed electronically. Number of Addenda: 0 Note Initiated On: 06/01/2023 8:54 AM PROVATION 06/01/2023 8:54 AM EST Ana Gillespie APRN GENERAL SURGICAL ORD ERABLES Performing Organization Address [facility] Co de Phone Number PROVATION * POCT Glucose (06/01/2023 8:32 AM EST) POC Glucose 102 65 - 199 mg/dL [facility] Comment: Supplemental ranges: <140 mg/dL before meals <180 mg/dL all other times of the day Blood 06/01/2023 8:32 AM EST 06/01/2023 8:32 AM EST David Dejesus MD POINT OF CARE TEST ORDERABLES Performing Organization Address [facility] Co de Phone Number [facility] [place] [address] documented in this encounter Visit Diagnoses Diagnosis [...] RN) documented in this encounter Care Teams Counter Stacker Relationship Specialty Start Date End Date Ana Gillespie APRN [address] [place] [address] PCP - General Family Medicine 02/03/19 documented as of this encounter
--- OUTSIDE RECORDS SUMMARY | 2023-12-03 14:54 | XMS_ITS | Encounter Summary ---
Author Organization [facility] [place] [address] Care Team Providers Care Personal Care Aide Name Role Phone Ana Gillespie APRN Primary Care Provider Encounter Details Date Type Department Care Team (Late st Contact Info) Description 06/18/2023 Orders [place] [phone] Noe Cuenca MD [facility] [place] [address] Hypoxemia (Primary Dx) Social History Tobacco Use Types Packs/Day Years [...] 12/07/2023 1:00 PM EDT Appoint[place] [phone] 12/07/2023 2:00 PM EDT Office [place] [phone] Geronimo Mojica MD [facility] [place] [address] 12/27/2023 11:30 AM EDT [place] [address] Noe Cuenca MD [facility] [place] [address] Scheduled Orders Name Type Priority Associated Diagnoses Orde r Schedule Pulmonary Function Testing PFT Routine Hypoxemia Expected: 06/18/2023, Expires: 12/18/2023 Scheduled Procedures Name Priority Associated Diagnoses Date/Ti me EGD, UPPER GI ENDOSCOPY (WRV U 2.09) Peptic stricture of esophagus documented as of this encounter Visit Diagnoses Diagnosis Hypoxemia- Primary documented in this encounter Care Teams Personal Care Aide Relationship Specialty Start Date End Date Ana Gillespie APRN [address] [place] [address] PCP - General Family Medicine 02/03/19 documented as of this encounter
--- OUTSIDE RECORDS SUMMARY | 2023-12-03 14:54 | XMS_ITS | Encounter Summary ---
Author Organization [facility] [place] [address] Care Team Providers Care Customs Brokerage Agent Name Role Phone Ana Gillespie APRN Primary Care Provider [phone] Encounter Details Date Type Department Care Team (Late st Contact Info) Description 09/08/2023 Telephone [place] [address] Parris Maravilla Social History Tobacco Use Types [...] * Telephone Encounter - Parris Maravilla - 09/08/2023 10:59 AM EDT LVM to call back and reschedule EGD with Dr. Dejesus If the call is returned, it can be handled by: [facility] Counselor please park to me documented in this encounter Plan of Treatment Upcoming Encounters Date Type Department Care Team (Late st Contact Info) Description 12/07/2023 1:00 PM EDT Appoint[place] [phone] 12/07/2023 2:00 PM EDT Office [place] [phone] Geronimo Mojica MD [facility] [place] [address] 12/27/2023 11:30 AM EDT [place] [address] Noe Cuenca MD [facility] [place] [address] Scheduled Procedures Name Priority Associated Diagnoses Date/Ti me EGD, UPPER GI ENDOSCOPY (WRV U 2.09) Peptic stricture of esophagus documented as of this encounter Visit Diagnoses Not on filedocumented in this encounter Care Teams Customs Brokerage Agent Relationship Specialty Start Date End Date Ana Gillespie APRN [address] [place] [address] PCP - General Family Medicine 02/03/19 documented as of this encounter
--- OUTSIDE RECORDS SUMMARY | 2023-12-03 14:54 | XMS_ITS | Encounter Summary ---
[place] [address] Care Team Providers Care Business Systems Developer Name Role Phone Ana Gillespie VAUGHN Primary Care Provider [phone] Reason for Referral * Diagnostic Test (Routine) - Closed Specialty Diagnoses / Procedures Referred By Contjovani t Referred To Contact Radiology Diagnoses Neuroleptic-induced parkinsonism Procedures IR G-Tube Check/Change BroomallFannie merritt PA [facility] [place] [address] [facility] [place] [address] Referral ID Status Reason Start Date Expiration Date V isits Requested Visits Authorized [id number] Closed Specialty Service Requested 07/06/2023 01/03/2025 1 1 Reason for Visit * Diagnostic Test (Routine) - Closed Specialty Diagnoses / Procedures Referred By Contjovani t Referred To Contact Radiology Diagnoses Neuroleptic-induced parkinsonism Procedures IR G-Tube Check/Change Broom[place]Fannie merritt PA [facility] [place] [address] [place] [address] Referral ID Status Reason Start Date Expiration Date V isits Requested Visits Authorized [id number] Closed Specialty Service Requested 07/06/2023 01/03/2025 1 1 Encounter Details Date Type Department Care Team (Latest Contact Info) Description 07/09/2023 12:21 PM EST - 07/09/2023 11:59 PM EST Hospital Encounter Radiology at [facility] [place] [place] [address] Moustapha Hart MD [facility] [place] [address] Neuroleptic-induced parkinsonism Discharge Disposition: Home Social History Tobacco Use [...] Sign Reading Time Taken Comments Blood Pressure 102/39 07/09/2023 3:15 PM EST Pulse 60 07/09/2023 1:38 PM EST Temperature 36.9 ??C (98.5 ??F) 07/09/2023 1:38 PM ES T Respiratory Rate 20 07/09/2023 3:15 PM EST Oxygen Saturation 99% 07/09/2023 3:15 PM EST Inhaled Oxygen Concentration - - Weight - - Height - - Body Mass Index - - documented in this encounter Discharge Instructions * Discharge Instructions* Sergey Moraes RN - 07/09/2023 3:25 PM EST Discharge Instructions for Feeding Tube Care You had a feeding tube placed to help with your nutrition. The tube is either in your stomach, or your small intestine, depending on which tube you and your doctor decided upon. Please read the following instructions on how to care for your new feeding tube, and how to prevent, and treat, possible issues. How to care for your feeding tube: * The most common problem seen with feeding tubes is clogging. Proper flushing is the best way to avoid this issue. * Flush the feeding tube (you will use a special syringe for this) with 30-60 cc of room temperature or warm water every 4-6 hours during continuous feeding, anytime the feeding is interrupted, before and after every intermittent feeding or medication administration, or at least once or twice a daywhen the tube is not being used. DO NOT USE ACIDIC IRRIGANTS SUCH CRANBERRY JUICE OR COLA BEVERAGES TO FLUSH THE TUBE. These fluids will contribute to clogging. * Ask your provider to convert all your medications into liquid form. If you have medications whichare in pill or powder form, make sure they are crushed (ask your provider or pharmacist which medications cannot be crushed) and dilute them really well. Administer each medication separately as thiswill help prevent potential medication interactions and associated clogging. * If flushing becomes difficult, contact the Interventional Radiology department. DO NOT FORCEFULLY FLUSH, as this may result in rupture of the tube and injury to your intestine. * If you have the NON Low profile HERBIE-BARLOW feeding tube the retention balloon (side port labeled ???BAL?? ) should be checked every 1-2 weeks. It should contain between 5 cc of water. If it is low this should be replaced. Do not put medications or flush through this port. * If you have a low profile ???ESTRELLITA-BARLOW?? feeding tube, the retention balloon (side port labeled ???BAL?? ) should be checked every 1-2 weeks. It should contain between 5 cc of water. If it islow this should be replaced. Do not put medications or flush through this port. If your tube becomes clogged: *DO NOT USE CRANBERRY JUICE, COLA DRINKS, MEAT TENDERIZER OR CHYMOTRYPSIN. Okay to use clear, white, sugar-free solutions such as water, seltzer water and DIET Francheska Jocelyn. *Make sure the feeding tube is not kinked or clamped off. If the clog is visible above the skin surface gently massage or ???milk?? the tube between fingers to break up the clog. Then flush the tubegently. STOP if it remains clogged. *Place the special syringe into the lumen of the tube and gently pull back, then depress the plunger to dislodge the clog. Gently continue these steps until the clog dislodges. If it does not dislodge, contact Interventional Radiology. DO NOT INSERT FOREIGN OBJECTS INTO THE TUBE. 2 If your tube falls out: You have been provided with a small red rubber catheter. If your tube falls out, place this catheter into the hole in your skin, about 6 inches, and tape well to the skin. Please do not flush the tube or put tube feedings through this catheter until you have contacted Interventional Radiology. How to care for the skin around the feeding tube: * It is normal to see a small amount of yellow mucous accumulate around the tube. Gently cleanse the site with mild soap and water and pat dry. Try to avoid allowing the mucous to build up and scab. Clean sutures, external bolsters and any stabilizing devices with mild soap and water using a Q-tip.DO NOT USE HYDROGEN PEROXIDE. This can damage the tube and is harsh on the skin. * You may shower with the waterproof dressing on for the first 3 days. Then you may shower with thedressing off, cleansing the area as instructed. You can replace the dressing, or leave it off if you wish. No swimming, tub baths or whirlpools WITHOUT a waterproof bandage for the first 4 weeks. When to call your provider: * If you develop pain at the site of your feeding tube that doesn???t resolve with pain medications. * If you develop abdominal pain or bloating with flushing or feeding. * If you develop redness, swelling or drainage from the around the feeding tube or suture sites. * If you develop bleeding around or through the tube * If you have trouble flushing the tube, or if the feedings are running slower than usual * If you notice any damage to the tube or its attachments. INTERVENTIONAL RADIOLOGY PHONE NUMBERS [phone] If you have a NON Low profile feeding tube, call with any questions or concerns. During regular office hours call: [phone]. If it is after regular office hours, weekends or holidays, please call [phone] and ask to speak to the Game Trapper dairy consultant for Interventional Radiology. If you have a low profile ???ESTRELLITA-BARLOW?? feeding tube, please call Dejah Stauffer RN for any issues: [phone]. Revised 02/23/19 documented in this encounter Medications at Time [...] meter kit. 1 each 0 12/14/2014 Insulin Paulina, Disposable, (BD INSULIN PEN NEEDLE UF MINI) 31 x 3/16 NeedleIndications:Di abetes mellitus type 2, uncontrolled 1 Device by Misc.(Non-Drug; Combo Route) route 3 times daily as needed. 100 each 11 12/13/2014 sacubitriL-valsartan (Entresto) 24-26 mg tablet 1 tablet by Per G Tube route 2 times daily. 60 tablet 3 09/24/2022 07/12/2023 documented as of this encounter Progress Notes * Sergey Moraes RN - 07/07/2023 10:12 AM EST ANGIO NURSING DATABASE Name: Jennifer Irving Date of : 1960 AGE: 63 y.o. Address: [address] [address] (home) Mobile: Telephone Information: Referring Provider: Fannie Conde REASON FOR VISIT: Order Questions Answers Where will study be performed? [facility] Radiology [120] Is the patient on anticoagulant / antiplatelet therapy ? No Reason for exam and clinical history: s/p g-tube exchange Apr 2023, now with concern for dislodgement/leaking. Needs replacement Planned procedure: Gastrostomy catheter exchange Labs to be performed day of procedure: No labs Sedation: No Sedation Prophylactic antibiotic : None Contrast: No contrast Additional medications for procedure: Lidocaine Position: Supine Consent: Scanned Medications to discontinue (and days held): None Case Urgency:: F- Elective OUT-patient intervention within 3 days Allergies Allergen Reactions Meperidine Hcl Nausea And [...] Local Only 07/09/23 G-tube exchange Local only 1500 to procedure room 1 via stretcher. Onto table supine. BP, Sp02, safety strap in place. Meds per protocol. [...] 12/07/2023 1:00 PM EDT Appointment [place] [phone] 12/07/2023 2:00 PM EDT Office Visit [place] [phone] Geronimo Mojica MD [facility] [place] [address] 12/27/2023 11:30 AM EDT Office [place] [address] Noe Cuenca MD [facility] [place] [address] Scheduled Procedures Name Priority Associated Diagnoses Date/Ti me EGD, UPPER GI ENDOSCOPY (WRV U 2.09) Peptic stricture of esophagus documented as of this encounter Procedures Procedure Name Priority Date/Time Associated Diagnosis Comments IR G-TUBE CHECK/CHANGE Routine 07/09/2023 3:34 PM EST Neuroleptic-induced parkinsonism documented in this encounter Results * IR G-Tube Check/Change (07/09/2023 3:34 PM EST) Anatomical Region Laterality Modality Chest X-Ray Angiograph y Narrative 07/09/2023 3:30 PM EST INTERVENTIONAL RADIOLOGY PROCEDURE NOTE Procedure: Gastrostomy Catheter Exchange Indication for Procedure: Possible dislodged G-tube, leaking, need for check/exchange. ??Need for durable access for enteral nutrition. Informed Consent: After discussing risks (including infection, trauma / damage to surrounding structures, hemorrhage, non-success, amongst others), and benefits of the procedure, the patient consented to the procedure. Monitoring and Sedation Details: The IR nurse was present continuously monitoring ??pulse, pressure, and oxygen saturation. No systemic sedation was utilized. Procedure Events and Technique: A standard time-out was conducted just before the start of the procedure to verify all barlwo aspects; including the correct patient and planned procedure, procedure location, informed consent, and all relevant critical information, all of which were correct. The patient was positioned supine on the procedure table. ??The epigastrium including the gastrostomy catheter was cleaned and prepped in typical sterile fashion; maximal sterile barrier technique was used throughout. ?? The procedure was performed under fluoroscopic guidance. ??A in service educator fluoroscopic image was obtained. ??Contrast was injected through the gastrostomy catheter and another fluoroscopic image was obtained. ??Through the catheter, an 0.035 Amplatz wire was advanced. ??The catheter was removed. ??Over the wire, a new 16-Fr ijm-hxv-gxqewmv (ESTRELLITA) gastrostomy catheter was advanced. ??The retention balloon was inflated with 4 cc of sterile water. ??The gastrostomy was injected with contrast and repeat fluoroscopic image was obtained. ??A sterile dressing was applied. ?? Medications: 2% Lidocaine Jelly Topically. ?? Contrast: 10 cc Omnipaque 350, intra-gastric. Fluoroscopic Time: 0.5 minutes. Estimated Blood Loss: < 5 cc. Complications: ??No immediate. Findings: Previously placed gastrostomy catheter within the stomach, but catheter retention disc loose allowing for catheter to slide more freely than typical. Exchange for new 16-Fr idg-dqj-ipejkom (ESTRELLITA) gastrostomy catheter within the stomach; retention disc snugged closely to abdominal wall. ?? Impression: Successful gastrostomy catheter exchange. ??The catheter may be used immediately. Resident/Fellow: None. Attending: Dr. Geronimo Chambers. I, Dr. Chambers, was present throughout the procedure. Moustapha Hart MD IMG IR ORDERABLES documented in this encounter Visit Diagnoses Diagnosis Neuroleptic-induced parkinsonism Secondary Parkinsonism documented in this encounter Administered Medications Inactive Administered Medications - up to 3 most recent administrations Medication Order MAR Action Action Date Dose Rate Site iohexoL (Omnipaque) (350 mg/mL) solution 1-400 mL 1-400 mL, Other, ONCE, 1 dose, On Wed07/09/23 at 1400, For intra-procedural use by proceduralist., Angio/IR (Intra-Procedure), Routine Given 07/09/2023 2:00 PM EST 5 mLs lidocaine (Glydo) 2 % gel 6 mL 6 mL, Topical (Top), EVERY 4 HOURS PRN, Starting on Wed07/09/23 at 1337, Until Wed07/09/23 at 1537, Pain, For use in Interventional Radiology (IR) only for procedure with direct provider supervision and verbal order., Angio/IR (Intra-Procedure), Routine Given 07/09/2023 1:38 PM EST 6 mLs documented in this encounter Care Teams Business Systems Developer Relationship Specialty Start Date End Date Ana Gillespie APRN [address] [place] [address] PCP - General Family Medicine 02/03/19 documented as of this encounter
--- OUTSIDE RECORDS SUMMARY | 2023-12-03 14:54 | XMS_ITS | Encounter Summary ---
Author Organization [facility] [place] [address] Care Team Providers Care Veterinary Virus Serum Inspector Name Role Phone Ana Gillespie VAUGHN Primary Care Provider [phone] Reason for Referral * Diagnostic Test (Routine) - Closed Specialty Diagnoses / Procedures Referred By Esperanza rodríguez Referred To Contact Radiology Diagnoses Neuroleptic-induced parkinsonism Procedures IR G-Tube Check/Change Fannie Conde PA [facility] [place] [address] [place] [address] Referral ID Status Reason Start Date Expiration Date V isits Requested Visits Authorized [id number] Closed Specialty Service Requested 07/06/2023 01/03/2025 1 1 Encounter Details Date Type Department Care Team (Late st Contact Info) Description 07/06/2023 Notes [place] [address] Fannie Conde PA [facility] [place] [address] Social History Tobacco Use Types Packs/Day Years [...] on file documented as of this encounter H&P Notes * Fannie Conde PA - 07/06/2023 3:12 PM EST Images from the original note were not included. Interventional Radiology Focused Pre-procedure H&P: PCP: Ana Gillespie APRN Referring Provider: No ref. provider found Planned procedure: Gastrostomy catheter exchange Procedure indication: Possible dislodged G-tube, leaking, need for check/exchange IR workflow: Procedure request received through Interventional [...] catheter with tube feeds, [facility]exchange [facility]-tube. Patient's reports that she was evaluated at [facility] for possible PNA, and the G-tube became [...] as previously outlined in patient's medical record. IR History: Date/Procedure Meds Given/Comments 09/11/22 Gtube placement ANES 11/27/22 Gtube exchange Local 03-10-23 G-Tube Exchange local 04/06/23 G-Tube Exchange Local Only Anticoagulation/Antiplatelet: None listed Labs: Lab Results Component Value Date HGB 11.5 (L) 09/23/2022 HCT 38.4 09/23/2022 WBC 6.8 09/23/2022 PLATELET 222 09/23/2022 INR 2.0 08/15/2022 BUN 32 (H) 09/25/2022 CREATININE 0.62 (L) 09/25/2022 ALBUMIN 2.5 (L) 08/20/2022 BILIDIR 0.1 08/20/2022 BILITOT <0.2 (L) 08/20/2022 AST 39 (H) 08/20/2022 ALT 20 08/20/2022 ALKPHOS 213 (H) 08/20/2022 Allergies: Meperidine hcl and Metformin Imaging: G-tube exchange 05/09/23 Assessment: 63 y.o. female with leaking, possibly dislodged G-tube presenting to Interventional Radiology for G-tube check/exchange. Plan Planned procedure: Gastrostomy catheter exchange Labs to be performed day of procedure: No labs Sedation: No Sedation Prophylactic antibiotic : None Contrast: No contrast Additional medications for procedure: Lidocaine Position: Supine Consent: Scanned Medications to discontinue (and days held): None Cytopathology presence needed: No Case Urgency:: F- Elective OUT-patient intervention within 3 days Medications: Current Outpatient Medications on File Prior to Visit Medication Sig Dispense Refill ciprofloxacin (Cipro) 500 [...] glucose meter kit. 1 each 0 Insulin Royal, Disposable, (BD INSULIN PEN NEEDLE UF MINI) 31 x 3/16 Needle 1 Device by [facility].(Non-Drug; Combo Route) route 3 times daily as needed. 100 each 11 No current facility-administered medications on file prior to visit. 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 Stress-induced cardiomyopathy I51.81 Past Medical History: Diagnosis Date Bipolar disorder 02/12/2022 Past Surgical History: Procedure Laterality Date IR G-TUBE CHECK/CHANGE 11/27/2022 IR G-Tube Check/Change 11/27/2022 Hang Cooper PA [facility] INTERVENTIONL RAD IR G-TUBE CHECK/CHANGE 03/10/2023 IR G-Tube Check/Change 03/10/2023 Geronimo Chambers DO [facility] INTERVENTIONL RAD IR G-TUBE CHECK/CHANGE 04/06/2023 IR G-Tube Check/Change 04/06/2023 Gavin Carrillo MD [facility] INTERVENTIONL RAD IR G-TUBE CHECK/CHANGE 05/09/2023 IR G-Tube Check/Change [facility] INTERVENTIONL RAD IR G-TUBE PLACEMENT 09/11/2022 IR G-Tube Placement 09/11/2022 Moustapha Hart MD [facility] INTERVENTIONL RAD IR SUTURE RELEASE 09/25/2022 IR Suture Release 09/25/2022 Yoselin Ghosh PA [facility] INTERVENTIONL RAD PERCUTANEOUS GASTROSTOMY N/A 09/11/2022 PERCUTANEOUS GASTROSTOMY performed by Aiden Flores MD at [facility] CATY PRO COLONOSCOPY, BIOPSY N/A 03/20/2016 COLONOSCOPY FLEXIBLE, WITH BX performed by David Dejesus MD at [facility] ENDOSCOPY PRO COLONOSCOPY, DIAGNOSTIC N/A 03/01/2020 COLONOSCOPY, DIAGNOSTIC performed by David Dejesus MD at [facility] ENDOSCOPY PRO ENDOSCOPIC US EXAM, ESOPH N/A 03/31/2022 UPPER EUS- ENDOSCOPIC ULTRASOUND performed by David Dejesus MD at [facility] ENDOSCOPY PRO UP GI ENDOSCOPY, BALL DIL, 30MM N/A 12/24/2022 EGD,WITH DILATION ESOPHAGUS WITH BALLOON,< 30 MM (WRVU 2.67) performed by David Dejesus MDat [facility] ENDOSCOPY PRO UP GI ENDOSCOPY, BALL DIL, 30MM N/A 01/12/2023 EGD,WITH DILATION ESOPHAGUS WITH BALLOON,< 30 MM (WRVU 2.67) performed by David Dejesus [facility] ENDOSCOPY PRO UP GI ENDOSCOPY, BALL DIL, 30MM N/A 02/26/2023 EGD,WITH DILATION ESOPHAGUS WITH BALLOON,< 30 MM (WRVU 2.67) performed by David Dejesus [facility] ENDOSCOPY PRO UP GI ENDOSCOPY, BALL DIL, 30MM N/A 03/16/2023 EGD,WITH DILATION ESOPHAGUS WITH BALLOON,< 30 MM (WRVU 2.67) performed by David Dejesus [facility] ENDOSCOPY PRO UP GI ENDOSCOPY, BALL DIL, 30MM N/A 03/30/2023 EGD,WITH DILATION ESOPHAGUS WITH BALLOON,< 30 MM (WRVU 2.67) performed by David Dejesus [facility] ENDOSCOPY PRO UP GI ENDOSCOPY, BALL DIL, 30MM N/A 04/30/2023 EGD,WITH DILATION ESOPHAGUS WITH BALLOON,< 30 MM (WRVU 2.67) performed by David Dejesus [facility] ENDOSCOPY PRO UP GI ENDOSCOPY, BALL DIL, 30MM N/A 06/01/2023 EGD,WITH DILATION ESOPHAGUS WITH BALLOON,< 30 MM (WRVU 2.67) performed by David Dejesus [facility] ENDOSCOPY PRO UPPER GI ENDOSCOPY, BIOPSY N/A 04/03/2014 UPPER GASTROINTESTINAL ENDOSCOPY,WITH BIOPSY SINGLE OR MULTIPLE performed by David Dejesus [facility] ENDOSCOPY PRO UPPER GI ENDOSCOPY, BIOPSY N/A 03/20/2016 EGD WITH BIOPSY performed by David Dejesus MD at [facility] ENDOSCOPY PRO UPPER GI ENDOSCOPY, BIOPSY N/A 11/22/2018 EGD WITH BIOPSY (WRVU 2.49) performed by David Dejesus MD at [facility] ENDOSCOPY PRO UPPER GI ENDOSCOPY, BIOPSY N/A 03/01/2020 UPPER GASTROINTESTINAL ENDOSCOPY,WITH BIOPSY SINGLE OR MULTIPLE (WRVU 2.49) performed by David Dejesus MD at [facility] ENDOSCOPY PRO UPPER GI ENDOSCOPY, BIOPSY N/A 09/23/2021 EGD WITH BIOPSY (WRVU 2.49) performed by David Dejesus MD at [facility] ENDOSCOPY PRO UPPER GI ENDOSCOPY, BIOPSY N/A 03/31/2022 EGD WITH BIOPSY (WRVU 2.49) performed by David Dejesus MD at [facility] ENDOSCOPY PRO UPPER GI ENDOSCOPY, BIOPSY N/A 07/03/2022 EGD WITH BIOPSY (WRVU 2.49) performed by David Dejesus MD at [facility] ENDOSCOPY PRO UPPER GI ENDOSCOPY, DIAGNOSTIC N/A 04/03/2014 EGD, UPPER GI ENDOSCOPY performed by David Dejesus MD at [facility] ENDOSCOPY PRO UPPER GI ENDOSCOPY, DIAGNOSTIC N/A 03/01/2020 EGD, UPPER GI ENDOSCOPY performed by David Dejesus MD at [facility] ENDOSCOPY PRO UPPER GI ENDOSCOPY, DIAGNOSTIC N/A 09/09/2022 EGD, UPPER GI ENDOSCOPY (WRVU 2.09) performed by Ayo Russ MD at [facility] MAIN OR Social History and Habits: Social History Tobacco Use Smoking status: Former Years: 11 Types: Cigarettes Quit date: 02/26/2021 Years since quittin.3 Smokeless tobacco: Never Substance Use Topics Alcohol use: Not Currently Drug use: Never Significant Family History: No family history on file. Pertinent ROS: as per HPI Physical Exam: Pending (to be performed in IR the day of procedure) ASA: Pending (to be assessed in IR the day of procedure) Mallampati class: Pending (to be assessed in IR the day of procedure) 07/06/2023 Fannie Conde PA-C documented in this encounter Plan of Treatment Upcoming Encounters Date Type Department Care Team (Late st Contact Info) Description 12/07/2023 1:00 PM EDT Appointment [place] [address] 12/07/2023 2:00 PM EDT Office Visit [place] [address] Geronimo Mojica MD [facility] [place] [address] 12/27/2023 11:30 AM EDT Office [place] [address] Noe Cuenca MD [facility] [place] [address] Scheduled Procedures Name Priority Associated Diagnoses Date/Ti [...] start of the procedure to verify all fam aspects; including the correct patient and planned procedure, procedure location, informed consent, and all relevant critical information, all of which were correct. The patient was positioned supine on the procedure table. ??The epigastrium including the gastrostomy catheter was cleaned and prepped in typical sterile fashion; maximal sterile barrier technique was used throughout. ?? The procedure was performed under fluoroscopic guidance. ??A masonry contractor administrator fluoroscopic image was obtained. ??Contrast was injected through the gastrostomy catheter and another fluoroscopic image was obtained. ??Through the catheter, an 0.035 Amplatz wire was advanced. ??The catheter was removed. ??Over the wire, a new 16-Fr zus-lmk-wkbbuuh (ESTRELLITA) gastrostomy catheter was advanced. ??The retention [...] freely than typical. Exchange for new 16-Fr zcg-qdi-lqtdvte (ESTRELLITA) gastrostomy catheter within the stomach; retention disc snugged closely to abdominal wall. ?? Impression: Successful gastrostomy catheter exchange. ??The catheter may be used immediately. Resident/Fellow: None. Attending: Dr. Geronimo Chambers. I, Dr. Chambers, was present throughout the procedure. 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
--- OUTSIDE RECORDS SUMMARY | 2023-12-03 14:54 | XMS_ITS | Encounter Summary ---
Author Organization [facility]ly [facility] [place] [address] Care Team Providers Care Patient Financial Representative Name Role Phone Ana Gillespie APRN Primary Care Provider [phone] Encounter Details Date Type Department Care Team (Late st Contact Info) Description 07/04/2023 External [place] [phone] Social History Tobacco Use Types Packs/Day Years [...] 12/07/2023 1:00 PM EDT Appointment Pulmonology at [place] [phone] 12/07/2023 2:00 PM EDT Office [place] [phone] Geronimo Mojica MD [facility] [place] [address] 12/27/2023 11:30 AM EDT [place] [phone] Noe Cuenca MD [facility] [place] [address] Scheduled Procedures Name Priority Associated Diagnoses Date/Ti me EGD, UPPER GI ENDOSCOPY (WRV U 2.09) Peptic stricture of esophagus documented as of this encounter Procedures Procedure Name Priority Date/Time Associated Diagnosis Comments ECG SCAN Routine 07/04/2023 8:56 AM EST documented in this encounter Results * Scan Doc: ECG (07/04/2023 8:56 AM EST) Historical Provider MD LEÓN MGR SCAN EX T ORDR/RSLT documented in this encounter Visit Diagnoses Not on filedocumented in this encounter Care Teams Patient Financial Representative Relationship Specialty Start Date End Date Ana Gillespie APRN [address] [place] [address] PCP - General Family Medicine 02/03/19 documented as of this encounter
--- OUTSIDE RECORDS SUMMARY | 2023-12-03 14:54 | XMS_ITS | Encounter Summary ---
Author Organization [facility] Address [facility] [place] [address] Care Team Providers Care Unemployment Benefits Claims Taker Name Role Phone Ana Gillespie APRN Primary Care Provider [phone] Encounter Details Date Type Department Care Team (Late st Contact Info) Description 07/02/2023 [place] [phone] Zhang Pope MD [facility] [place] [address] Social History Tobacco Use Types Packs/Day Years [...] encounter Miscellaneous Notes * Telephone Encounter - Zhang Pope MD - 07/02/2023 4:06 PM EST Images from the original note were not included. 07/02/2023 Jennifer Irving Initial Contact Date: 07/02/2023 Initial contact time: 4:06 PM Referring Provider: Dr. Tae Abrams Patient Location: [facility] Presenting Symptoms per OSH: Jennifer Irving is a 62 y.o. female with a cardiovascular history of stress cardiomyopathy complicated by acute HFrEF and cardiogenic shock. Medical history is otherwise notable for BPAD with neuroleptic induced Parkinsonism, IDDM2, chronic aspiration s/p GT placement, alcohol use disorder (reported to be in remission for 1.5 years) c/b chronic pancreatitis, iron deficiency anemia, GERD c/b esophagitis, Farrell's esophagus and esophageal stricture. She established with Dr. Hernandez in Cardiology clinic in Jan 2023. The patient presented today to [facility] with cough and shortness of breath. The working diagnosis at [facility] is a COPD exacerbation. Cardiology was contacted as the patient's troponin had increased over three hours from 203 to 434. The patient has sharp generalized chest pain that occurs when she coughs but does not have chest pressure. ECG is similar to previous. The patient is on BiPAP and the provider at [facility] plans to admit her locally with BiPAP. Pertinent Diagnostic Findings: Troponin 203-->434 after 3 hours (ULN 50) ECG showing slight T wave flattening aVL, appears similar to previous ECG Chest imaging reportedly shows bronchial wall thickening Past cardiac studies: TTE 08/19/2022 Interpretation Summary -Left ventricular systolic function is [...] 08/15/22 there has been no significant change. Provider report patient had a TTE performed November 2022 at [facility] with LVEF that nearly completely recovered. OSH Interventions: Aspirin 325 mg Plan: This is a 63 year old female with prior stress induced cardiomyopathy presenting for shortness of breath and cough with COPD exacerbation. I was consulted for question of ischemia given rise in troponin. Her symptoms sound much more consistent with lung pathology rather than ischemia. ECG is stableto previous. Her troponin has increased over the course of three hours. The patient is tachycardic and is being treated for COPD exacerbation. This is likely a type II NSTEMI. I therefore recommendedtrending troponin and serial ECG. If her troponin rises dramatically we will readdress starting ischemic therapies and transfer but for now will continue management of COPD exacerbation. I also recommended TTE as soon as able. Above recommendations were based on my discussion with Dr. Abrams; I have not personally interviewed or examined this patient. Advised to call the transfer center back with any changes in the patient condition. Zhang Pope MD Music Store Manager documented in this encounter Plan of Treatment Upcoming Encounters Date Type Department Care Team (Late st Contact Info) Description 12/07/2023 1:00 PM EDT Appointment [place] [phone] 12/07/2023 2:00 PM EDT Office [place] [phone] Geronimo Mojica MD [facility] [place] [address] 12/27/2023 11:30 AM EDT Office [place] [phone] Noe Cuenca MD [facility] [place] [address] Scheduled Procedures Name Priority Associated Diagnoses Date/Ti me EGD, UPPER GI ENDOSCOPY (WRV U 2.09) Peptic stricture of esophagus documented as of this encounter Visit Diagnoses Not on filedocumented in this encounter Care Teams Unemployment Benefits Claims Taker Relationship Specialty Start Date End Date Ana Gillespie APRN [address] [place] [address] PCP - General Family Medicine 02/03/19 documented as of this encounter
--- OUTSIDE RECORDS SUMMARY | 2023-12-03 14:55 | XMS_ITS | Encounter Summary ---
Author Organization [facility] Address [facility] [place] [address] Care Team Providers Care Landfill Gas Collection Operator Name Role Phone Ana Gillespie VAUGHN Primary Care Provider [phone] Encounter Details Date Type Department Care Team (Latest Contact Info) Description 03/10/2023 Travel Social History Tobacco Use Types Packs/Day [...] 12/07/2023 1:00 PM EDT Appointment Pulmonology at [place] [phone] 12/07/2023 2:00 PM EDT Office Visit Thoracic Surgery at [place] [phone] Geronimo Mojica MD [facility] [place] [address] 12/27/2023 11:30 AM EDT [place] [phone] Noe Cuenca MD [facility] [place] [address] Scheduled Procedures Name Priority Associated Diagnoses Date/Ti me EGD, UPPER GI ENDOSCOPY (WRV U 2.09) Peptic stricture of esophagus documented as of this encounter Visit Diagnoses Not on filedocumented in this encounter Care Teams Landfill Gas Collection Operator Relationship Specialty Start Date End Date Ana Gillespie APRN [address] [place] [address] PCP - General Family Medicine 02/03/19 documented as of this encounter
--- OUTSIDE RECORDS SUMMARY | 2023-12-03 14:55 | XMS_ITS | Encounter Summary ---
Author Organization [facility] [place] [address] Care Team Providers Care Television Picture Tube Rebuilder Name Role Phone Ana Gillespie VAUGHN Primary Care Provider [phone] Reason for Referral * Diagnostic Test (Routine) - Closed Specialty Diagnoses / Procedures Referred By Esperanza rodríguez Referred To Contact Radiology Diagnoses Neuroleptic-induced parkinsonism Procedures IR G-Tube Check/Change Fannie Conde PA [facility] [place] [address] [place] [address] Referral ID Status Reason Start Date Expiration Date V isits Requested Visits Authorized [id number] Closed Specialty Service Requested 04/05/2023 10/03/2024 1 1 Encounter Details Date Type Department Care Team (Late st Contact Info) Description 04/05/2023 Notes [place] [phone] Fannie Conde PA [facility] [place] [address] Social History Tobacco Use Types Packs/Day Years [...] 12/07/2023 1:00 PM EDT Appointment [place] [phone] 12/07/2023 2:00 PM EDT Office [place] [phone] Geronimo Mojica MD [facility] [place] [address] 12/27/2023 11:30 AM EDT Office [place] [phone] Noe Cuenca MD [facility] [place] [address] Scheduled Procedures Name Priority Associated Diagnoses Date/Ti me EGD, UPPER GI ENDOSCOPY (WRV U 2.09) Peptic stricture of esophagus documented as of this encounter Results * IR G-Tube Check/Change (04/06/2023 4:40 PM EST) Anatomical Region Laterality Modality Chest X-Ray Angiograph y Narrative 04/07/2023 9:30 AM EST INTERVENTIONAL RADIOLOGY PROCEDURE NOTE Procedure: Gastrostomy Catheter Exchange Indication for Procedure: G-tube balloon rupture and dislodgement, requires durable enteric access for nutrition Informed Consent: After discussing risks (including infection, [...] the procedure table. ??The epigastrium including the previously placed gastrostomy catheter was cleaned and prepped in typical sterile fashion; maximal sterile barrier technique was used throughout. ?? The procedure was performed under fluoroscopic guidance. ??A margarine maker fluoroscopic image was obtained. ??Contrast was injected through the barba catheter and another fluoroscopic image was obtained. ??Through the catheter, an 0.035 stiff angled glide wire was advanced. ??The catheter was removed. ??Over the wire, a new 16-Fr ufu-wdh-hulvpoc (ESTRELLITA) gastrostomy catheter was advanced. ??The retention balloon was inflated with 5 cc of sterile water. ??The gastrostomy was injected with contrast and repeat fluoroscopic image was obtained. ??A sterile dressing was applied. ?? Medications: 2% Lidocaine Jelly Topically Contrast: 10 cc Omnipaque 350, intra-enteric. Fluoroscopic Time: 0.2 minutes. Estimated Blood Loss: < 5 cc. Complications: ??No immediate. Findings: Placement of new 16-Fr mhl-twq-jdwqwgc (ESTRELLITA) catheter positioned within the stomach. ?? Impression: Successful gastrostomy catheter replacement. ??The catheter may be used immediately. Resident/Fellow: Steven Harding MD PGY-6 Attending: Dr. Carrillo I was the attending physician supervising the resident in the above care and I was present with the resident for the entire procedure. Moustapha Hart MD IMG IR ORDERABLES documented in this encounter Visit Diagnoses Diagnosis Neuroleptic-induced parkinsonism Secondary Parkinsonism Neuroleptic-induced parkinsonism Secondary Parkinsonism documented in this encounter Care Teams Television Picture Tube Rebuilder Relationship Specialty Start Date End Date Ana Gillespie APRN [address] [place] [address] PCP - General Family Medicine 02/03/19 documented as of this encounter
--- OUTSIDE RECORDS SUMMARY | 2023-12-03 14:55 | XMS_ITS | Encounter Summary ---
Author Organization [facility] [place] [address] Care Team Providers Care Client Sales And Service Officer Name Role Phone Ana Gillespie FISHER QUAHOG Primary Care Provider [phone] Encounter Details Date Type Department Care Team (Late st Contact Info) Description 05/05/2023 Telephone [facility]enterology at [facility] [place] [address] Parris Maravilla Social History Tobacco Use Types [...] * Telephone Encounter - Parris Maravilla - 05/05/2023 10:15 AM EST Jennifer Irving [id number] Diagnosis/Indication: repeat petic stricture dilation - please schedule within two weeks Please review patient chart to confirm [...] had a/an Upper Endoscopy before? Yes: Date 04/30/23 If yes, did you have any problems with the procedure (such as waking up during the procedure, pain or difficulties afterwards, etc.)? No What type of sedation was used: General Anesthesia Do you take any blood thinners or have you been diagnosed with a bleeding disorder that increases your risk of bleeding with procedures? No Do you have a Pacemaker or Defibrillator device? If yes, send pool message to Cardiology with patient information and date or procedure. No Are you a diabetic? If yes, call PCP/managing provider to discuss use of prep and any questions or concerns related to. Yes: Controlled by diet or medication? Both Do you take any iron supplements or [...] during procedure, extreme confusion after, etc.) Yes has had pneumonia with the last 3 procedures here Do you have a diagnosis of Obstructive Sleep Apnea that requires the use of a c- pap machine? No Do you use an oxygen tank at home? Yes Do you use a rescue inhaler more than twice per day? (COPD, severe asthma) Yes Do you experience breathing problems when you lay flat for a period of time? Yes Do you take prescription narcotic pain medications, including suboxone or methodone? No SCHEDULING CONFIRMATIONS: Please note any and all [...] NEW referral patient; skip this question if [facility] GI provider ordered the procedure.) No Is there any other information or concerns you would like to us to share with your care team in relation to your upcoming scheduled procedure? Yes: has had pneumonia with the last 3 procedures You must have a responsible libertarian who will drive you to your procedure, stay on campus for the entire duration of your procedure, and drive you home from your procedure. Who will likely be your cement mixer driver for the procedure? *Please Verify the height and weight, and adjust if height and/or weight have changed* Estimated body mass index is 28.12 kg/m?? as calculated from the following: Height as of 03/30/23: 152.4 cm (5'). Weight as of 04/30/23: 65.3 kg (144 lb). *Patient must be scheduled for Anesthesia support if BMI is 40 or above* Age:62 y.o. documented in this encounter Plan of Treatment Upcoming Encounters Date Type Department Care Team (Late st Contact Info) Description 12/07/2023 1:00 PM EDT Appointment [place] [address] 12/07/2023 2:00 PM EDT Office Visit [place] [phone] Geronimo Mojica MD [facility] [place] [address] 12/27/2023 11:30 AM EDT Office [place] [address] Noe Cuenca MD [facility] [place] [address] Scheduled Procedures Name Priority Associated Diagnoses Date/Ti me EGD, UPPER GI ENDOSCOPY (WRV U 2.09) Peptic stricture of esophagus documented as of this encounter Visit Diagnoses Not on filedocumented in this encounter Care Teams Client Sales And Service Officer Relationship Specialty Start Date End Date Ana Gillespie APRN [address] [place] [address] PCP - General Family Medicine 02/03/19 documented as of this encounter
--- OUTSIDE RECORDS SUMMARY | 2023-12-03 14:55 | XMS_ITS | Encounter Summary ---
Author Organization [facility] Address [facility] [place] [address] Care Team Providers Care Dolphin Researcher Name Role Phone Ana Gillespie VAUGHN Primary Care Provider [phone] Encounter Details Date Type Department Care Team (Latest Contact Info) Description 03/30/2023 2:12 PM EST - 03/30/2023 7:04 PM EST Hospital Encounter Gastroenterology at [facility] [address] David Dejesus MD [facility] [place] [address] Discharge Disposition: Home Social History Tobacco Use [...] Sign Reading Time Taken Comments Blood Pressure 133/59 03/30/2023 6:50 PM EST Pulse 52 03/30/2023 3:17 PM EST Temperature 36.6 ??C (97.9 ??F) 03/30/2023 3:17 PM ES T Respiratory Rate 18 03/30/2023 6:50 PM EST Oxygen Saturation 97% 03/30/2023 6:50 PM EST Inhaled Oxygen Concentration - - Weight 66.2 kg (146 lb) 03/30/2023 3:17 PM EST Height 152.4 cm (5') 03/30/2023 3:17 PM EST Body Mass Index 28.51 03/30/2023 3:17 PM EST documented in this encounter Discharge Instructions * Discharge Instructions* Lucia Agustin, RN - 03/30/2023 6:34 PM EST Upper GI Endoscopy: What to Expect [...] the day after the procedure, use an lmrf-khx-fohejne spray to numb your throat. Sucking on [...] occurs, please contact your Doctor. Please call [phone] before 8pm Mon-Fri with problems, questions or concerns. If you call after 8pm or on weekends, call the Hospital at [phone] and ask to speak to the Medicine Assistant microsoft infrastructure consultant and the keying machine operator will contact that person for you. When should you call for help? Call [phone] anytime you think you may need emergency [...] any problems. Where can you learn more? [facility] View your After Visit Summary and more online at [email or web address] If you would like to provide feedback about your hospital experience, please call the Office of Patient and Family Relations at . If you have received this After Visit Summary in error, please immediately return it in person to the department, or notify the [facility] Privacy Office by calling toll free at between the hours of 8AM and 5PM to arrange for our retrieval of the documents at no cost to you. Content Version: 12.2 ?? 4319-8443 [employer]. Care instructions adapted under license by [facility]. If you have questions about a medical condition or this instruction, always ask your healthcare professional. [employer] disclaims any warranty or liability for your [...] the day after the procedure, use an dapb-jes-ctzzkww spray to numb your throat. Sucking on [...] occurs, please contact your Doctor. Please call [phone] before 8pm Mon-Fri with problems, questions or concerns. If you call after 8pm or on weekends, call the Hospital at [phone] and ask to speak to the Medicine Assistant microsoft infrastructure consultant and the keying machine operator will contact that person for [...] any problems. Where can you learn more? [facility] View your After Visit Summary and more online at [email or web address] If you would like to provide feedback about your hospital experience, please call the Office of Patient and Family Relations at . If you have received this After Visit Summary in error, please immediately return it in person to the department, or notify the [facility] Privacy Office by calling toll free at between the hours of 8AM and 5PM to arrange for our retrieval of the documents at no cost to you. Content Version: 12.2 ?? [phone] [employer]. Care instructions adapted under license by [facility]. If you have questions about a medical condition or this instruction, always ask your healthcare professional. [employer], [employer] disclaims any warranty or liability for your use of this information. documented in this encounter Medications at Time of Discharge Medication Sig Dispensed Refills Start Date End Date metoprolol succinate XL (Toprol-XL) 50 mg ER [...] meter kit. 1 each 0 12/14/2014 Insulin [place], Disposable, (BD INSULIN PEN NEEDLE UF MINI) 31 x 3/16 NeedleIndications:Di abetes mellitus type 2, uncontrolled 1 Device by Mis.(Non-Drug; Combo Route) route 3 times daily as needed. 100 each 11 12/13/2014 sacubitriL-valsartan (Entresto) 24-26 mg tablet 1 tablet by Per G Tube route 2 times daily. 60 tablet 3 09/24/2022 07/12/2023 QUEtiapine (SEROquel) 50 mg Tablet Take 50 mg by mouth daily. 02/10/2020 04/30/2023 documented as of this encounter H&P Notes * Parminder Mao MD - 03/30/2023 5:20 PM EST Gastroenterology and Hepatology Pre-Procedure History and Physical Exam Procedure: EGD, stricture dilatation Indication: serial dilatation of esophageal stricture. Last EGD 03/16 w/ balloon dilatation to 10 mm. Patient Active Problem List Diagnosis Code GERD (gastroesophageal reflux disease) K21.9 Farrell's esophagus K22.70 T2DM (type 2 diabetes mellitus) E11.9 BMI 37.0-37.9, adult Z68.37 Bipolar disorder F31.9 Neuroleptic-induced parkinsonism G21.11, T43.505A Stress-induced cardiomyopathy I51.81 EXAM: HEENT: Airway examined, oropharynx clear Mallampati Score: I (soft palate, uvula, fauces, tonsillar pillars visible) LUNGS: Clear to auscultation HEART: Regular rate [...] 12/07/2023 1:00 PM EDT Appointment [place] [phone] 12/07/2023 2:00 PM EDT Office Visit Thoracic Surgery at [place] [phone] Geronimo Mojica MD [facility] [place] [address] 12/27/2023 11:30 AM EDT Office [place] [phone] Noe Cuenca MD [facility] [place] [address] Scheduled Procedures Name Priority Associated Diagnoses Date/Ti il EGD, UPPER GI ENDOSCOPY (WRV U 2.09) Peptic stricture of esophagus documented as of this encounter Procedures Procedure Name Priority Date/Time Associated Diagnosis Comments Up Gi Endoscopy, Rick Chavez, 30Mm ([id number]) 03/30/2023 6:02 PM EST Peptic stricture of esophagus UPPER GI ENDOSCOPY Routine 03/30/2023 5: 58 PM EST documented in this encounter Results * UPPER GI ENDOSCOPY (03/30/2023 5:58 PM EST) UPPER GI ENDOSCOPY [facility] Endoscopy Procedure Date: 03/30/2023 5:58 PM ? Patient Name: Jennifer Irving ? N: [id number] ? Date of : 1960 ? Age: 62 ? Order #: [id number] ? Instrument Name: [id number] ? Procedure: ? Upper GI endoscopy Indications: ? Stenosis of the esophagus Providers: ? David Dejesus MD, Jennifer Howell ? [place], Theodora Farrell, ? Hse Manager Referring : ?Ana Gillespie Medicines: ? Propofol per Anesthesia Complications: ? No immediate complications. Procedure: [...] ? The examined esophagus was normal until the known ? stricture at 25 cm. We dilated serially both the ? upper and distal stricture using the 6-7-8 and 8-10 ? and 10-11-12 mm balloons. There were prominent rents ? following dilation. ? Moderate Sedation: ? Not applicable - See Anesthesia documentation Impression: ?- Continued dilation - dilated to ? 12 mm today Recommendation: ?- Return in two weeks - hope to ? dilate to 14 mm ? Attending Participation: ? I was present and participated during the entire ? procedure, including non-fam portions. ? ___ David Dejesus MD 03/30/2023 6:30:22 PM This report has been signed electronically. Number of Addenda: 0 Note Initiated On: 03/30/2023 5:58 PM PROVATION 03/30/2023 5:58 PM EST Ana Gillespie CONTOUR BAND SAW OPERATOR VERTICAL GENERAL SURGICAL ORD ERABLES PROVATION documented in this encounter Visit Diagnoses Not on filedocumented in this encounter Active and Recently Administered Medications Times are shown in EST. Continuous Medication Order 03/28/2023 03/29/2023 03/30/2023 lactated ringers infusion (CANCELED) 100 mL/hr, Intravenous, CONTINUOUS, Starting on Wed03/30/23 at 1600, Until Wed03/30/23 at 1903, Endoscopy (Day of Procedure) 180 (New Bag - Prov ider: Almita Lorenzo CRNA)180 (Anesthesia Volume Adjustment - Provider: Almita Lorenzo CRNA) documented in this encounter Care Teams Dolphin Researcher Relationship Specialty Start Date End Date Ana Gillespie APRN [address] [place] [address] PCP - General Family Medicine 02/03/19 documented as of this encounter
--- OUTSIDE RECORDS SUMMARY | 2023-12-03 14:55 | XMS_ITS | Encounter Summary ---
[place] [address] Care Team Providers Care Manager Dialysis Name Role Phone Ana Gillespie VAUGHN Primary Care Provider [phone] Reason for Referral * Diagnostic Test (Routine) - Closed Specialty Diagnoses / Procedures Referred By Esperanza rodríguez Referred To Contact Radiology Diagnoses Problem with gastrostomy tube Procedures IR G-Tube Check/Change Nisha Chavez MD [facility] [place] [address] [place] [address] Referral ID Status Reason Start Date Expiration Date V isits Requested Visits Authorized [id number] Closed Specialty Service Requested 05/09/2023 11/06/2024 1 1 Reason for Visit * Diagnostic Test (Routine) - Closed Specialty Diagnoses / Procedures Referred By Esperanza rodríguez Referred To Contact Radiology Diagnoses Problem with gastrostomy tube Procedures IR G-Tube Check/Change Nisha Chavez MD [facility] [place] [address] [place] [address] Referral ID Status Reason Start Date Expiration Date V isits Requested Visits Authorized [id number] Closed Specialty Service Requested 05/09/2023 11/06/2024 1 1 Encounter Details Date Type Department Care Team (Latest Contact Info) Description 05/09/2023 11:00 AM EST - 05/09/2023 11:59 PM EST Hospital Encounter Radiology at [facility] [address] [place] [phone] Azeem Alarcon MD [facility] [place] [address] Problem with gastrostomy tube Discharge Disposition: Home [...] meter kit. 1 each 0 12/14/2014 Insulin [place], Disposable, (BD INSULIN PEN NEEDLE UF MINI) 31 x 3/16 NeedleIndications:Di abetes mellitus type 2, uncontrolled 1 Device by Misc.(Non-Drug; Combo Route) route 3 times daily as needed. 100 each 11 12/13/2014 sacubitriL-valsartan (Entresto) 24-26 mg tablet 1 tablet by Per G Tube route 2 times daily. 60 tablet 3 09/24/2022 07/12/2023 documented as of this encounter Plan of Treatment Upcoming Encounters Date Type Department Care Team (Late st Contact Info) Description 12/07/2023 1:00 PM EDT [place]oint[place] [phone] 12/07/2023 2:00 PM EDT Office [place] [phone] Geronimo Mojica MD [facility] [place] [address] 12/27/2023 11:30 AM EDT Office [place] [phone] Noe Cuenca MD [facility] [place] [address] Scheduled Procedures Name Priority Associated Diagnoses Date/Ti me EGD, UPPER GI ENDOSCOPY (WRV U 2.09) Peptic stricture of esophagus documented as of this encounter Procedures Procedure Name Priority Date/Time Associated Diagnosis Comments IR G-TUBE CHECK/CHANGE Routine 05/09/2023 1:25 PM EST Problem with gastrostomy tube documented in this encounter Results * IR G-Tube Check/Change (05/09/2023 1:25 PM EST) Anatomical Region Laterality Modality Chest X-Ray Angiograph y Impressions 05/09/2023 1:16 PM EST : Technically successful gastrostomy tube exchange. I, Dr. Alarcon, was present throughout the procedure Narrative 05/09/2023 1:16 PM EST IR PROCEDURE REPORT: ??G tube exchange INDICATION: existing G-tube occluded. TECHNIQUE: After discussing risks (including infection and hemorrhage), and benefits, patient consented to the procedure. ??Contrast was injected through the existing tube. ??Over a wire, tube was removed and a new, 16 Fr balloon retained, single lumen gastrostomy tube was placed, with its tip in the stomach. Contrast study performed. Patient tolerated the procedure well and there were no immediate complications. Contrast : ??10 cc Omnipaque 350. ?EBL : ??0 cc. FINDINGS: ?? Existing barba tube occluded. ??new, 16 Fr balloon retained, single lumen gastrostomy tube was replaced. Erythematous skin around site, ostomy wafer placed. Azeem Alarcon MD IMG IR ORDERABLES documented in this encounter Visit Diagnoses Diagnosis Problem with gastrostomy tube documented in this encounter Administered Medications Inactive Administered Medications - up to 3 most recent administrations Medication Order MAR Action Action Date Dose Rate Site iohexoL (Omnipaque) (350 mg/mL) solution 50 mL 50 mL, Other, ONCE, 1 dose, On 05/09/23 at 1345, Warning Vesicant/Irritant Medication , Angio/IR (Intra-Procedure), Routine Given 05/09/2023 1:45 PM EST 10 mLs documented in this encounter Care Teams Manager Dialysis Relationship Specialty Start Date End Date Ana Gillespie APRN [address] [place] [address] PCP - General Family Medicine 02/03/19 documented as of this encounter
--- OUTSIDE RECORDS SUMMARY | 2023-12-03 14:55 | XMS_ITS | Encounter Summary ---
Author Organization [facility] Address [facility] [place] [address] Care Team Providers Care Cap Sizer Name Role Phone Ana Gillespie VAUGHN Primary Care Provider [phone] Reason for Referral * Diagnostic Test (Routine) - Closed Specialty Diagnoses / Procedures Referred By Esperanza rodríguez Referred To Contact Radiology Diagnoses Problem with gastrostomy tube Procedures IR G-Tube Check/Change Jaime Chavez MD [facility] [place] [address] [place] [address] Referral ID Status Reason Start Date Expiration Date V isits Requested Visits Authorized [id number] Closed Specialty Service Requested 05/09/2023 11/06/2024 1 1 Encounter Details Date Type Department Care Team (Late st Contact Info) Description 05/09/2023 [place] [address] Jaime Chavez MD [facility] [place] [address] Encounter for screening mammogram for breast cancer; Problem with gastrostomy tube Social History Tobacco Use Types Packs/Day Years [...] as of this encounter H&P Notes * Jaime Chavez MD - 05/09/2023 10:05 AM EST Images from the original note were not included. INTERVENTIONAL RADIOLOGY FOCUSED H&P and PRE-PROCEDURE NOTE: PCP: Ana Gillespie APRN Referring Provider: Dr. Chavez Planned Procedure: Planned procedure: IR G tube check/exchange Procedure Indication: G tube balloon rupture, need for durable gastric access for nutrition Procedure Request: Procedure request received through the Interventional Radiology eDH order queue. Presenting Diagnosis/ Complaint: Jennifer Irving is a 62 y.o. female who is G tube dependent for nutrition. Pt's called to relay that pt's g tube had fallen out for which they sought treatment at [facility]. A barba was placed into the tract. was able to administer medications through the barba catheter. Unfortunately this am the barba catheter was found to be clogged with medication material. Pt will require G tube exchange in IR. 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 Stress-induced cardiomyopathy I51.81 Past Medical History: Diagnosis Date Bipolar disorder 02/12/2022 Past Surgical History: Procedure Laterality Date IR G-TUBE CHECK/CHANGE 11/27/2022 IR G-Tube Check/Change 11/27/2022 Hang Cooper PA [facility] INTERVENTIONL RAD IR G-TUBE CHECK/CHANGE 03/10/2023 IR G-Tube Check/Change 03/10/2023 Geronimo Chambers DO [facility] INTERVENTIONL RAD IR G-TUBE CHECK/CHANGE 04/06/2023 IR G-Tube Check/Change 04/06/2023 Gavin Carrillo MD [facility] INTERVENTIONL RAD IR G-TUBE PLACEMENT 09/11/2022 IR G-Tube Placement 09/11/2022 Moustapha Hart MD [facility] INTERVENTIONL RAD IR SUTURE RELEASE 09/25/2022 IR Suture Release 09/25/2022 Yoselin Ghosh PA [facility] INTERVENTIONL RAD PERCUTANEOUS GASTROSTOMY N/A 09/11/2022 PERCUTANEOUS GASTROSTOMY performed by Aiden Flores MD at [facility] CATY PRO COLONOSCOPY, BIOPSY N/A 03/20/2016 COLONOSCOPY FLEXIBLE, WITH BX performed by David Dejesus MD at [facility] ENDOSCOPY PRO COLONOSCOPY, DIAGNOSTIC N/A 03/01/2020 COLONOSCOPY, DIAGNOSTIC performed by David Dejesus MD at [facility] ENDOSCOPY PRO ENDOSCOPIC US EXAM, ESOPH N/A 03/31/2022 UPPER EUS- ENDOSCOPIC ULTRASOUND performed by David Dejesus MD at [facility] ENDOSCOPY PRO UP GI ENDOSCOPY, BALL DIL, 30MM N/A 12/24/2022 EGD,WITH DILATION ESOPHAGUS WITH BALLOON,< 30 MM (WRVU 2.67) performed by David Dejesus [facility] ENDOSCOPY PRO UP GI ENDOSCOPY, BALL DIL, 30MM N/A 01/12/2023 EGD,WITH DILATION ESOPHAGUS WITH BALLOON,< 30 MM (WRVU 2.67) performed by David Dejesus [facility] ENDOSCOPY PRO UP GI ENDOSCOPY, BALL DIL, 30MM N/A 02/26/2023 EGD,WITH DILATION ESOPHAGUS WITH BALLOON,< 30 MM (WRVU 2.67) performed by David Dejesus [facility] ENDOSCOPY PRO UP GI ENDOSCOPY, BALL DIL, 30MM N/A 03/16/2023 EGD,WITH DILATION ESOPHAGUS WITH BALLOON,< 30 MM (WRVU 2.67) performed by David Dejesus [facility] ENDOSCOPY PRO UP GI ENDOSCOPY, BALL DIL, 30MM N/A 03/30/2023 EGD,WITH DILATION ESOPHAGUS WITH BALLOON,< 30 MM (WRVU 2.67) performed by David Dejesus [facility] ENDOSCOPY PRO UP GI ENDOSCOPY, BALL DIL, 30MM N/A 04/30/2023 EGD,WITH DILATION ESOPHAGUS WITH BALLOON,< 30 MM (WRVU 2.67) performed by David Dejesus [facility] ENDOSCOPY PRO UPPER GI ENDOSCOPY, BIOPSY N/A 04/03/2014 UPPER GASTROINTESTINAL ENDOSCOPY,WITH BIOPSY SINGLE OR MULTIPLE performed by David Dejesus [facility] ENDOSCOPY PRO UPPER GI ENDOSCOPY, BIOPSY N/A 03/20/2016 EGD WITH BIOPSY performed by David Dejesus MD at [facility] ENDOSCOPY PRO UPPER GI ENDOSCOPY, BIOPSY N/A 11/22/2018 EGD WITH BIOPSY (WRVU 2.49) performed by David Dejesus MD at [facility] ENDOSCOPY PRO UPPER GI ENDOSCOPY, BIOPSY N/A 03/01/2020 UPPER GASTROINTESTINAL ENDOSCOPY,WITH BIOPSY SINGLE OR MULTIPLE (WRVU 2.49) performed by David Dejesus MD at [facility] ENDOSCOPY PRO UPPER GI ENDOSCOPY, BIOPSY N/A 09/23/2021 EGD WITH BIOPSY (WRVU 2.49) performed by David Dejesus MD at [facility] ENDOSCOPY PRO UPPER GI ENDOSCOPY, BIOPSY N/A 03/31/2022 EGD WITH BIOPSY (WRVU 2.49) performed by David Dejesus MD at [facility] ENDOSCOPY PRO UPPER GI ENDOSCOPY, BIOPSY N/A 07/03/2022 EGD WITH BIOPSY (WRVU 2.49) performed by David Dejesus MD at [facility] ENDOSCOPY PRO UPPER GI ENDOSCOPY, DIAGNOSTIC N/A 04/03/2014 EGD, UPPER GI ENDOSCOPY performed by David Dejesus MD at [facility] ENDOSCOPY PRO UPPER GI ENDOSCOPY, DIAGNOSTIC N/A 03/01/2020 EGD, UPPER GI ENDOSCOPY performed by David Dejesus MD at [facility] ENDOSCOPY PRO UPPER GI ENDOSCOPY, DIAGNOSTIC N/A 09/09/2022 EGD, UPPER GI ENDOSCOPY (WRVU 2.09) performed by Ayo Russ MD at [facility] MAIN OR Medications: Current Outpatient Medications on File Prior to Visit Medication Sig Dispense Refill metoprolol succinate XL [...] daily. 180 tablet 3 Blood Sugar Diagnostic ([employer] ULTRA TEST) Strip 1 each by Other [...] glucose meter kit. 1 each 0 Insulin [place], Disposable, (BD INSULIN PEN NEEDLE UF MINI) 31 x 3/16 Needle 1 Device by [facility].(Non-Drug; Combo Route) route 3 times daily as needed. 100 each 11 No current facility-administered medications on file prior to visit. Allergies: Meperidine hcl and Metformin Social History and Habits: Social History Socioeconomic History Marital status: Spouse name: Not on file Number of children: Not on file Years of education: Not on file Highest education level: Not on file Occupational History Not on file Tobacco Use Smoking status: Former Years: 11 Types: Cigarettes Quit date: 02/26/2021 Years since quittin.1 Smokeless tobacco: Never Substance and Sexual Activity [...] PROT 5.6 (L) 08/20/2022 K 4.6 09/25/2022 Imaging: Physical Exam: Pending (to be performed in angio the day of procedure) ASA: Pending (to be assessed in angio the day of procedure) Mallampati Class: Pending (to be assessed in angio the day of procedure) Assessment: 62 y.o. female presenting for G tube exchange Reviewed with Attending: Dr. Alarcon Plan: Planned procedure: IR G tube check/exchange Labs to be performed day of procedure: No labs Sedation: No Sedation Prophylactic antibiotic : None Contrast: Omnipaque Additional medications for procedure: Lido jelly Position: Supine Consent: Scanned Medications to discontinue (and days held): None 05/09/2023 documented in this encounter Miscellaneous Notes * Addendum Note - Jaime Chavez MD - 05/09/2023 10:05 AM ESTAddended by: JAIME CHAVEZ on: 05/09/2023 10:55 AM Modules accepted: Orders documented in this encounter Plan of Treatment Upcoming Encounters Date Type Department Care Team (Late st Contact Info) Description 12/07/2023 1:00 PM EDT Appointment [place] [phone] 12/07/2023 2:00 PM EDT Office [place] [phone] Geronimo Mojica MD [facility] [place] [address] 12/27/2023 11:30 AM EDT [place] [phone] Noe Cuenca MD [facility] [place] [address] Scheduled Procedures Name Priority Associated Diagnoses Date/Ti [...] documented in this encounter Visit Diagnoses Diagnosis Encounter for screening mammogram for breast cancer Problem with gastrostomy tube Problem with gastrostomy tube documented in this encounter Care Teams Cap Sizer Relationship Specialty Start Date End Date Ana Gillespie, VAUGHN [address] [place] [address] PCP - General Family Medicine 02/03/19 documented as of this encounter
--- OUTSIDE RECORDS SUMMARY | 2023-12-03 14:55 | XMS_ITS | Encounter Summary ---
Author Organization [facility] Address [facility] [place] [address] Care Team Providers Care Logistics Analyst Name Role Phone Ana Gillespie VAUGHN Primary Care Provider [phone] Reason for Visit * Reason Onset Date Comments Questions 04/13/2023 Low BP reading Encounter Details Date Type Department Care Team (Late st Contact Info) Description 04/13/2023 Telephone Cardiology at [address] [phone] Chela Walsh, RN Questions (Low BP reading) Social History Tobacco Use Types Packs/Day Years [...] encounter Miscellaneous Notes * Telephone Encounter - Chela Walsh, RN - 04/13/2023 3:33 PM EST Campos, spouse calling to report that he will do random home BP readings. Today her BP was 86/34, at rest. She is feeling well. Denies any LH/dizziness. He is making sure she is getting the extra free water as recommended by her PCP. Her BP readings yesterday was 90/39 & 114/52. States she is actually increasing her activity to include doing her own bathing, assisting him to get dressed. Doing her exercises daily. Reviewed meds has him giving them as written on her med list. Advised to continue to monitor her BP at home. If he gets a low reading weight 10 -15 minutes and recheck it. If it continues to be low (systolic BP <80), and/or if she is c/o low BP s/s, he should call for assistance. Campos verbalized good understanding of the current POC and is happy with the return call. documented in this encounter Plan of Treatment Upcoming Encounters Date Type Department Care Team (Late st Contact Info) Description 12/07/2023 1:00 PM EDT Appointment [place] [address] 12/07/2023 2:00 PM EDT Office [place] [phone] Geronimo Mojica MD [facility] [place] [address] 12/27/2023 11:30 AM EDT Office [place] [phone] Noe Cuenca MD [facility] [place] [address] Scheduled Procedures Name Priority Associated Diagnoses Date/Ti me EGD, UPPER GI ENDOSCOPY (WRV U 2.09) Peptic stricture of esophagus documented as of this encounter Visit Diagnoses Not on filedocumented in this encounter Care Teams Logistics Analyst Relationship Specialty Start Date End Date Ana Gillespie APRN [address] [place] [address] PCP - General Family Medicine 02/03/19 documented as of this encounter
--- OUTSIDE RECORDS SUMMARY | 2023-12-03 14:55 | XMS_ITS | Encounter Summary ---
[place] [address] Care Team Providers Care Advisor To Command In Combat Name Role Phone Ana Gillespie VAUGHN Primary Care Provider Reason for Referral * Diagnostic Test (Routine) - Closed Specialty Diagnoses / Procedures Referred By Contjovani t Referred To Contact Radiology Diagnoses Frarell's esophagus with high grade dysplasia Gastrostomy tube in place Procedures IR G-Tube Check/Change Steven Harding MD [facility] [place] [address] [place] [address] Referral ID Status Reason Start Date Expiration Date V isits Requested Visits Authorized [id number] Closed Specialty Service Requested 03/09/2023 09/06/2024 1 1 Encounter Details Date Type Department Care Team (Late st Contact Info) Description 03/09/2023 [place] [address] Steven Harding MD [facility] [place] [address] Farrell's esophagus with high grade dysplasia; Gastrostomy tube in place Social History Tobacco Use Types Packs/Day Years [...] as of this encounter H&P Notes * Steven Harding MD - 03/09/2023 8:04 PM EDT Images from the original note were not included. INTERVENTIONAL RADIOLOGY FOCUSED H&P and PRE-PROCEDURE NOTE: PCP: Ana Gillespie APRN Referring Provider: Steven Harding MD Planned Procedure: Planned procedure: G-tube check/change Procedure Indication: G-tube clogged, durable enteric access for nutrition Procedure Request: Procedure request received through the Interventional Radiology eDH order queue. Presenting Diagnosis/ Complaint: Jennifer Irving is a 62 y.o. female presenting to IR for G-tube check/change in the setting of clogging and inability to use for enteral nutrition and medications. Per the patient's , the G-tube also appears retracted by approximately half an inch. Past m edical history significant for Farrell's esophagus with stricturing and dysphagia requiring 100% nutrition via gastrostomy catheter. Additional pertinent history of type 2 diabetes, and bipolar disorder. Last seen by interventional radiology 11/27/2022 for gastrostomy tube exchange under local only at which time a balloon retrained 16 [place] EnFit G-tube was placed. 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 INTERVENTIONL RAD IR G-TUBE PLACEMENT 09/11/2022 IR G-Tube Placement 09/11/[address] [facility] INTERVENTIONL RAD IR SUTURE RELEASE 09/25/2022 IR Suture Release 09/25/[address] [facility] INTERVENTIONL RAD PERCUTANEOUS GASTROSTOMY N/A 09/11/2022 PERCUTANEOUS GASTROSTOMY performed by Aiden Flores MD at [facility] CATY PRO COLONOSCOPY, BIOPSY N/A 03/20/2016 COLONOSCOPY FLEXIBLE, WITH BX performed by David Dejesus MD at [facility] ENDOSCOPY PRO COLONOSCOPY, DIAGNOSTIC N/A 03/01/2020 COLONOSCOPY, DIAGNOSTIC performed by David Dejesus MD at [facility] ENDOSCOPY PRO ENDOSCOPIC US EXAM, ESOPH N/A 03/31/2022 UPPER EUS- ENDOSCOPIC ULTRASOUND performed by David Dejesus MD at [facility] ENDOSCOPY PRO UP GI ENDOSCOPY, BALL DIL, 30MM N/A 12/24/2022 EGD,WITH DILATION ESOPHAGUS WITH BALLOON,< 30 MM (WRVU 2.67) [facility] GI ENDOSCOPY, BALL DIL, 30MM N/A 01/12/2023 EGD,WITH DILATION ESOPHAGUS WITH BALLOON,< 30 MM (WRVU 2.67) performed by David [facility]jesus [facility] ENDOSCOPY PRO UP GI ENDOSCOPY, BALL DIL, 30MM N/A 02/26/2023 EGD,WITH DILATION ESOPHAGUS WITH BALLOON,< 30 MM (WRVU 2.67) [facility] ENDOSCOPY PRO UPPER GI ENDOSCOPY, BIOPSY N/A 04/03/2014 UPPER GASTROINTESTINAL ENDOSCOPY,WITH BIOPSY SINGLE OR MULTIPLE performed by David [facility]jesus [facility] ENDOSCOPY PRO UPPER GI ENDOSCOPY, BIOPSY N/A 03/20/2016 EGD WITH BIOPSY performed by David Dejesus MD at [facility] ENDOSCOPY PRO UPPER GI ENDOSCOPY, BIOPSY N/A 11/22/2018 EGD WITH BIOPSY (WRVU 2.49) performed by David Dejesus MD at [facility] ENDOSCOPY PRO UPPER GI ENDOSCOPY, BIOPSY N/A 03/01/2020 UPPER GASTROINTESTINAL ENDOSCOPY,WITH BIOPSY SINGLE OR MULTIPLE (WRVU 2.49) performed by David Deejsus MD at [facility] ENDOSCOPY PRO UPPER GI ENDOSCOPY, BIOPSY N/A 09/23/2021 EGD WITH BIOPSY (WRVU 2.49) performed by David Dejesus MD at [facility] ENDOSCOPY PRO UPPER GI ENDOSCOPY, BIOPSY N/A 03/31/2022 EGD WITH BIOPSY (WRVU 2.49) performed by David Deejsus MD at [facility] ENDOSCOPY PRO UPPER GI ENDOSCOPY, BIOPSY N/A 07/03/2022 EGD WITH BIOPSY (WRVU 2.49) performed by David Dejesus MD at [facility] ENDOSCOPY PRO UPPER GI ENDOSCOPY, DIAGNOSTIC N/A 04/03/2014 EGD, UPPER GI ENDOSCOPY performed by David Dejesus MD at [facility] ENDOSCOPY PRO UPPER GI ENDOSCOPY, DIAGNOSTIC N/A 03/01/2020 EGD, UPPER GI ENDOSCOPY performed by David Dejesus MD at [facility] ENDOSCOPY PRO UPPER GI ENDOSCOPY, DIAGNOSTIC N/A 09/09/2022 EGD, UPPER GI ENDOSCOPY (WRVU 2.09) performed by Ayo Russ MD at [facility] MAIN OR Medications: Current Outpatient Medications on [...] mouth 2 times daily. 180 tablet 3 QUEtiapine (SEROquel) 50 mg Tablet Take 50 mg by mouth daily. Blood Sugar Diagnostic (ONETOUCH ULTRA TEST) Strip 1 each by Other route 3 times daily. by Other route. 1 box = 100 test strips; 3 boxes = 300 test strips. 300 each 3 lancets (ONE TOUCH DELICA) 33 gauge [facility] 1 each by Other route 3 times daily. by Other route. 1 box= 100 test strips; 3 boxes = 300 test strips. 300 each 3 Blood-Glucose Meter (ONETOUCH ULTRA2) Kit by Other route. 1 = one blood glucose meter kit. 1 each 0 Insulin [place], Disposable, (BD INSULIN PEN NEEDLE UF MINI) 31 x 3/16 Needle 1 Device by [facility].(Non-Drug; Combo Route) route 3 times daily [...] Types: Cigarettes Quit date: 02/26/2021 Years since quittin.0 Smokeless tobacco: Never Substance and Sexual Activity [...] of procedure) Assessment: 62 y.o. female presenting to IR for G-tube check/change in the setting of clogging and inability to use for enteral nutrition and medications. Reviewed with Attending: Dr. Alarcon Plan: Planned procedure: G-tube check/change Labs to be performed day of procedure: No labs Sedation: Fentanyl only Prophylactic antibiotic : None Contrast: Omnipaque Additional medications for procedure: Lido jelly Planned access site: G-tube Position: Supine Consent: Scanned Medications to discontinue (and days held): None Case Urgency:: F- Elective OUT-patient intervention within 3 days 03/09/2023 documented in this encounter Plan of Treatment Upcoming Encounters Date Type Department Care Team (Late st Contact Info) Description 12/07/2023 1:00 PM EDT Appointment [place] [address] 12/07/2023 2:00 PM EDT Office [place] [phone] Geronimo Mojica MD [facility] [place] [address] 12/27/2023 11:30 AM EDT Office [place] [phone] Noe Cuenca MD [facility] [place] [address] Scheduled Procedures Name Priority Associated Diagnoses Date/Ti me EGD, UPPER GI ENDOSCOPY (WRV U 2.09) Peptic stricture of esophagus documented as of this encounter Results * IR G-Tube Check/Change (03/10/2023 4:24 PM EDT) Anatomical Region Laterality Modality Chest X-Ray Angiograph y Narrative 03/10/2023 4:27 PM EDT INTERVENTIONAL RADIOLOGY PROCEDURE NOTE Procedure: Gastrostomy Catheter Exchange Indication for Procedure: G-tube clogged, durable enteric access for nutrition Informed Consent: [...] procedure was performed under fluoroscopic guidance. ??A director of scout work fluoroscopic image was obtained. ??Contrast was injected through the gastrostomy catheter and another fluoroscopic image was obtained. ??Through the catheter, an 0.035 Amplatz wire was advanced. ??The catheter was removed. ??Over the wire, a new 16-Fr [id number]-vkloswk (ESTRELLITA) gastrostomy catheter was advanced. ??The retention balloon was inflated with 4 cc of sterile water. ??The gastrostomy was injected with contrast and repeat fluoroscopic image was obtained. ??A sterile dressing was applied. ?? Medications: 2% Lidocaine Jelly Topically Contrast: 20 cc Omnipaque 350, intra-enteric. Fluoroscopic Time: 0.6 minutes. Estimated Blood Loss: < 5 cc. Complications: ??No immediate. Findings: Previously placed gastrostomy catheter retracted with balloon in the tract, partially deflated, but with tip of catheter still in gastric lumen. ?? Exchange for new 16-Fr [id number]-tgfrnsk (ESTRELLITA) catheter positioned within the stomach. ?? Impression: Successful gastrostomy catheter exchange. ??The catheter may be used immediately. Resident/Fellow: None. Attending: Dr. Geronimo Chambers. I, Dr. Chambers, was present throughout the procedure. Azeem Alarcon MD [facility] IR ORDERABLES documented in this encounter Visit Diagnoses Diagnosis Farrell's esophagus with high grade dysplasia Farrell's esophagus Gastrostomy tube in place Farrell's esophagus with high grade dysplasia Farrell's esophagus Gastrostomy tube in place documented in this encounter Care Teams Advisor To Command In Combat Relationship Specialty Start Date End Date Ana Gillespie APRN [address] [place] [address] PCP - General Family Medicine 02/03/19 documented as of this encounter
--- OUTSIDE RECORDS SUMMARY | 2023-12-03 14:55 | XMS_ITS | Encounter Summary ---
[place] [address] Care Team Providers Care Human Resources Director Name Role Phone Ana Gillespie VAUGHN Primary Care Provider [phone] Encounter Details Date Type Department Care Team (Late st Contact Info) Description 04/19/2023 Telephone [place] [address] Meka Vera Social History Tobacco Use Types Packs/Day Years [...] encounter Miscellaneous Notes * Telephone Encounter - Meka Vera - 04/19/2023 8:27 AM EST 04/19/23-pt's called in to cancel procedure due to weather. Advised Shannen at control desk. She is an urgent pt and Keke will call her to reschedule. LRL documented in this encounter Plan of Treatment Upcoming Encounters Date Type Department Care Team (Late st Contact Info) Description 12/07/2023 1:00 PM EDT Appointment [place] [address] 12/07/2023 2:00 PM EDT Office [place] [address] Geronimo Mojica MD [facility] [place] [address] 12/27/2023 11:30 AM EDT Office Visit Pulmonology at [facility] [place] [phone] Noe Cuenca MD [facility] [place] [address] Scheduled Procedures Name Priority Associated Diagnoses Date/Ti me EGD, UPPER GI ENDOSCOPY (WRV U 2.09) Peptic stricture of esophagus documented as of this encounter Visit Diagnoses Not on filedocumented in this encounter Care Teams Human Resources Director Relationship Specialty Start Date End Date Ana Gillespie APRN [address] [place] [address] PCP - General Family Medicine 02/03/19 documented as of this encounter
--- OUTSIDE RECORDS SUMMARY | 2023-12-03 14:55 | XMS_ITS | Encounter Summary ---
Author Organization [facility] [place] [address] Care Team Providers Care Freezing Machine Operator Name Role Phone Ana Gillespie APRN Primary Care Provider [phone] Encounter Details Date Type Department Care Team (Late Contact Info) Description 04/30/2023 Orders [place] [phone] David Dejesus MD [facility] [place] [address] Peptic stricture of esophagus Social History Tobacco [...] 12/07/2023 1:00 PM EDT Appointment [place] [phone] 12/07/2023 2:00 PM EDT Office [place] [phone] Geronimo Mojica MD [facility] [place] [address] 12/27/2023 11:30 AM EDT [place] [address] Noe Cuenca MD [facility] [place] [address] Scheduled Orders Name Type Priority Associated Diagnoses Orde r Schedule ENDOSCOPY CASE REQUEST: EGD, UPPER GI ENDOSCOPY (WRVU 2.09) Procedures Routine Peptic stricture of esophagus Ordered: 04/30/2023 Scheduled Procedures Name Priority Associated Diagnoses Date/Ti me EGD, UPPER GI ENDOSCOPY (WRV U 2.09) Peptic stricture of esophagus documented as of this encounter Visit Diagnoses Diagnosis Peptic stricture of esophagus Stricture and stenosis of esophagus documented in this encounter Care Teams Freezing Machine Operator Relationship Specialty Start Date End Date Ana Gillespie APRN [address] [place] [address] PCP - General Family Medicine 02/03/19 documented as of this encounter
--- OUTSIDE RECORDS SUMMARY | 2023-12-03 14:55 | XMS_ITS | Encounter Summary ---
Author Organization [facility] Marly petersen [place] [id number] Care Team Providers Care Drug Abuse Resistance Education Officer Name Role Phone Ana Gillespie APRN Primary Care Provider [phone] Encounter Details Date Type Department Care Team (Late st Contact Info) Description 04/30/2023 3:26 PM EST Anesthesia [place] [phone] Leigh Carter MD [facility] DR ANESTHESIOLOGY DEPT [place] [id number] Cristine Gomez CRNA [facility] [place] [address] Anesthesia Record Procedure Summary Procedure Name Responsible Anesthesiologist Anesthesia Start Time Anesthesia Stop Time EGD,WITH DILATION ESOPHAGUS WITH BALLOON,< 30 MM (WRVU 2.67) (Trunk) Leigh Carter MD 04/30/23 1526 04/30/23 1600 Events Date Time Event Comment 04/30/2023 1512 1526 AN Verify 1526 Start 1529 An Start Data 1529 An Induction 1533 An Intubation 1536 Anesthesia Ready 1541 Break/Relief In I assumed ca re for Break Relief before which we: 1. Identified the patient 2. Identified the responsible provider(s) 3. Reviewed the pertinent medical history 4. Discussed the surgical plan and course 5. Reviewed intra-op anesthesia management and issues during anesthesia 6. Set expectations for the relief (and/or post-procedure) period 7. Allowed opportunity for questions and acknowledgement of understanding Susy Juárez RECONCILEMENT CLERK 1550 Procedure Stop 1555 Break/Relief Out 1557 Extubation/LMA Out 1558 an stop data 1600 Recovery or ICU Handoff Sayra ent care was transferred to the destination unit staff after review of the patient's medical history, current anesthetic/surgical status and plan, according to the Provider Handoff Checklist. 1600 Stop Meds Name Total Propofol 120 mg Propofol INF 228.55 mg Ondansetron 8 mg Dexamethasone 8 mg succinylcholine 100 mg lactated ringers 800 mL * Agents Name O2 * Blood No blood administrations on file. Lines, Drains, and Airways Type Details Placement Removal Enterostomy Tube 03/10/23; 1618; gastrostomy tube with balloon (16F); LUQ (left upper quadrant); feeding; MD Chambers G-Tube exchange 16Fr. 07/09/23, 09/17/23 exchanged with 16fr by ROSLYN Cooper, 10/14/23 Tube exchange 16 fr, MD Hart 03/10/23 1618 by Sergey Jordan RN PIV 04/30/23; 1414; 22 g auge; metacarpal vein (top of hand), right; audrey sandoval; 0; 04/30/23; 1631 04/30/23 1414 by Phyllis Angel RN 04/30/23 1631 by Irene Mccarthy, RN ETT Mask Ventilation: No t Attempted (0); ETT Type: Cuffed, Oral; ETT Size: 7 mm; Mac Blade: 3; Notes: Asleep, Awake; Attempts: 1; Laryngoscopy Grade: 1; ETT Placement Verified By: Auscultation, Capnometry; Secured at Teeth: 21 cm; Inserted by: Johanny Simpson CRNA; Removal Date: 04/30/23; Removal Time: 1558 04/30/23 1533 by Tapan Simpson CRNA 04/30/23 1558 by Tapan Simpson CRNA documented in this encounter Social History [...] OR Notes * Anesthesia Postprocedure Evaluation - Leigh Carter MD - 04/30/2023 5:12 PM EST Department of Anesthesiology Post-procedure Note Patient: Jennifer Irving Procedure Summary Date: 04/30/23 Room / Location: [facility] ENDO 2 / [facility] ENDOSCOPY Anesthesia Start: 1526 Anesthesia Stop: 1600 Procedure: EGD,WITH DILATION ESOPHAGUS WITH BALLOON,< 30 MM (WRVU 2.67) (Trunk) Diagnosis: Peptic stricture of esophagus (peptic striture - schedule in two weeks) Surgeons: David Dejesus MD Responsible Provider: Leigh Carter MD Anesthesia Type: general ASA Status: 3 All Anesthesia Providers: Anesthesiologist: Leigh Carter MD RECONCILEMENT CLERK: Tapan Simpson CRNA Vitals Value Taken Time BP 102/57 04/30/23 1620 Temp Pulse Resp SpO2 96 % 04/30/23 1623 Pain Level 0 04/30/23 1620 Vitals shown include unfiled device data. Patient Location: PACU/[facility] Level of Consciousness: Awake and Alert Pain Management: Satisfactory Analgesia PONV: None Cardiovascular Status: At Baseline and Hemodynamically Stable Respiratory Status: At Baseline and Room Air Postoperative Fluid Status: Intravascular EUvolemia Possible Anesthetic Complications: NONE apparent at time of evaluation Final Primary Anesthesia Type: General (The anesthetic type performed was the same as planned.) Comments: Leigh Carter MD * Anesthesia Preprocedure Evaluation - Leigh Carter MD - 04/30/2023 9:37 AM EST Pre-Anesthesia Evaluation for: Jennifer Irving a [...] IR G-Tube Check/Change 11/27/2022 Hang Cooper, ROSLYN [facility] INTERVENTIONL RAD ??? IR G-TUBE CHECK/CHANGE 03/10/2023 IR G-Tube Check/Change 03/10/2023 Geronimo Chambers, [facility] INTERVENTIONL RAD ??? IR G-TUBE CHECK/CHANGE 04/06/2023 IR G-Tube Check/Change 04/06/2023 Gavin Carrillo MD [facility] INTERVENTIONL RAD ??? IR G-TUBE PLACEMENT 09/11/2022 IR G-Tube Placement 09/11/2022 Moustapha Hart MD [facility] INTERVENTIONL RAD ??? IR SUTURE RELEASE 09/25/2022 IR Suture Release 09/25/2022 Yoselin Ghosh PA [facility] INTERVENTIONL RAD ??? PERCUTANEOUS GASTROSTOMY N/A 09/11/2022 PERCUTANEOUS GASTROSTOMY performed by Aiden Flores MD at [facility] CATY ??? PRO COLONOSCOPY, BIOPSY N/A 03/20/2016 COLONOSCOPY FLEXIBLE, WITH BX performed by David Dejesus MD at [facility] ENDOSCOPY ??? PRO COLONOSCOPY, DIAGNOSTIC N/A 03/01/2020 COLONOSCOPY, DIAGNOSTIC performed by David Dejesus MD at [facility] ENDOSCOPY ??? PRO ENDOSCOPIC US EXAM, ESOPH N/A 03/31/2022 UPPER EUS- ENDOSCOPIC ULTRASOUND performed by David Dejesus MD at [facility] ENDOSCOPY ??? PRO UP GI ENDOSCOPY, BALL DIL, 30MM N/A 12/24/2022 EGD,WITH DILATION ESOPHAGUS WITH BALLOON,< 30 MM (WRVU 2.67) performed by David Dejesus MDat [facility] ENDOSCOPY ??? PRO UP GI ENDOSCOPY, BALL DIL, 30MM N/A 01/12/2023 EGD,WITH DILATION ESOPHAGUS WITH BALLOON,< 30 MM (WRVU 2.67) [facility] PRO UP GI ENDOSCOPY, BALL DIL, 30MM N/A 02/26/2023 EGD,WITH DILATION ESOPHAGUS WITH BALLOON,< 30 MM (WRVU 2.67) performed by David Djeesus [facility] ENDOSCOPY ??? PRO UP GI ENDOSCOPY, BALL DIL, 30MM N/A 03/16/2023 EGD,WITH DILATION ESOPHAGUS WITH BALLOON,< 30 MM (WRVU 2.67) performed by David Dejesus [facility] ENDOSCOPY ??? PRO UP GI ENDOSCOPY, BALL DIL, 30MM N/A 03/30/2023 EGD,WITH DILATION ESOPHAGUS WITH BALLOON,< 30 MM (WRVU 2.67) performed by David Dejesus [facility] ENDOSCOPY ??? PRO UPPER GI ENDOSCOPY, BIOPSY N/A 04/03/2014 UPPER GASTROINTESTINAL ENDOSCOPY,WITH BIOPSY SINGLE OR MULTIPLE performed by David Dejesus [facility] ENDOSCOPY ??? PRO UPPER GI ENDOSCOPY, BIOPSY N/A 03/20/2016 EGD WITH BIOPSY performed by David Dejesus MD at [facility] ENDOSCOPY ??? PRO UPPER GI ENDOSCOPY, BIOPSY N/A 11/22/2018 EGD WITH BIOPSY (WRVU 2.49) performed by David Dejesus MD at [facility] ENDOSCOPY ??? PRO UPPER GI ENDOSCOPY, BIOPSY N/A 03/01/2020 UPPER GASTROINTESTINAL ENDOSCOPY,WITH BIOPSY SINGLE OR MULTIPLE (WRVU 2.49) performed by David Dejesus MD at [facility] ENDOSCOPY ??? PRO UPPER GI ENDOSCOPY, BIOPSY N/A 09/23/2021 EGD WITH BIOPSY (WRVU 2.49) performed by David Dejesus MD at [facility] ENDOSCOPY ??? PRO UPPER GI ENDOSCOPY, BIOPSY N/A 03/31/2022 EGD WITH BIOPSY (WRVU 2.49) performed by David Dejesus MD at [facility] ENDOSCOPY ??? PRO UPPER GI ENDOSCOPY, BIOPSY N/A 07/03/2022 EGD WITH BIOPSY (WRVU 2.49) performed by David Dejesus MD at [facility] ENDOSCOPY ??? PRO UPPER GI ENDOSCOPY, DIAGNOSTIC N/A 04/03/2014 EGD, UPPER GI ENDOSCOPY performed by David Dejesus MD at [facility] ENDOSCOPY ??? PRO UPPER GI ENDOSCOPY, DIAGNOSTIC N/A 03/01/2020 EGD, UPPER GI ENDOSCOPY performed by David Dejesus MD at [facility] ENDOSCOPY ??? PRO UPPER GI ENDOSCOPY, DIAGNOSTIC N/A 09/09/2022 EGD, UPPER GI ENDOSCOPY (WRVU 2.09) performed by Ayo Russ MD at [facility] MAIN OR Social History Tobacco Use ??? Smoking status: Former Years: 11 Types: Cigarettes Quit date: 02/26/2021 Years since quittin.1 ??? Smokeless tobacco: Never Substance Use Topics ??? Alcohol use: Not Currently Social History Substance and Sexual Activity Drug Use Never Allergies Allergen Reactions ??? Meperidine Hcl Nausea And Vomiting CIS - violently ill ??? Metformin Other (See Comments) Severe diarrhea Medications: MAR and/or home medications have been reviewed. Physical Exam: Preprocedure Vitals Current as of 03/16/23 1202 BP: Pulse: 51 Resp: 18 SpO2: 98 Temp: 36.7 ??C (98 ??F) Height: Weight: 65.2 kg (143 lb 11.2 oz) (03/16/23) BMI: IBW: Last edited 03/16/23 1149 by Airway Assessment: Mallampati: II TM distance: >3 FB Neck ROM: full Cardiovascular Assessment: Rhythm: regular Rate: normal system normal Pulmonary Assessment: unlabored breathing pulmonary exam normal Dental Assessment: Misc Assessment: Patient is wearing No contact(s). IV access: Peripheral line Last Filed Perioperative Cognitive Screening None Anesthesia Plan: ASA 3 general, with a(n) intravenous induction 62M with a PMH of esophageal stricture, cardiomyopathy (EF 32%), IDDM2 (also on Jardiance), active GERD here for EGD/dilation. Tolerated multiple prior procedures with MAC. Required ETT for prior procedure due to food in esophagus and episode of aspiration PNA. G1v MAC 3 Plan for GA, ETT, RSI in setting of active GERD and hx of aspiration PNA Region - Other Informed Consent: Anesthetic plan and risks discussed with patient. Plan discussed with RECONCILEMENT CLERK and attending. Anesthesia Screening documented in this encounter Plan of Treatment Upcoming Encounters Date Type Department Care Team (Late st Contact Info) Description 12/07/2023 1:00 PM EDT Appointment [place] [phone] 12/07/2023 2:00 PM EDT Office [place] [phone] Geronimo Mojica MD [facility] DR THORACIC SURGERY [place], [place] [address] 12/27/2023 11:30 AM EDT Office [place] [phone] Noe Cuenca MD [facility] [place] [address] Scheduled Procedures Name Priority Associated Diagnoses Date/Ti me EGD, UPPER GI ENDOSCOPY (WRV U 2.09) Peptic stricture of esophagus documented as of this encounter Visit Diagnoses Not on filedocumented in this encounter Administered Medications Inactive Administered Medications - up to 3 most recent administrations Medication Order MAR Action Action Date Dose Rate Site dexAMETHasone (Decadron) injection Intravenous, PRN, Starting on Wed04/30/23 at 1533, Until Wed04/30/23 at 1600, Anesthesia Intra-op, Routine Given 04/30/2023 3:33 PM EST 8 mg lactated ringers infusion Intravenous, CONTINUOUS PRN, Starting on Wed04/30/23 at 1449, Until Wed04/30/23 at 1600, Anesthesia Intra-op New Bag 04/30/2023 2:49 PM EST ondansetron (pf) (Zofran) (2 mg/mL) injection Intravenous, PRN, Starting on Wed04/30/23 at 1532, Until Wed04/30/23 at 1600, Anesthesia Intra-op, Routine Given 04/30/2023 3:32 PM EST 8 mg propofoL (Diprivan) (10 mg/mL) infusion Intravenous, CONTINUOUS PRN, Starting on Wed04/30/23 at 1535, Until Wed04/30/23 at 1600, Anesthesia Intra-op, Routine Rate/Dose Change 04/30/2023 3:45 PM EST 200 mcg/kg/min 78.36 mL/hr New Bag 04/30/2023 3:35 PM EST 250 mcg/kg/min 97.95 mL/ hr propofoL (Diprivan) 10 mg/mL bolus injection (Anesthesia) Intravenous, PRN, Starting on Wed04/30/23 at 1532, Until Wed04/30/23 at 1600, Anesthesia Intra-op Given 04/30/2023 3:32 PM EST 120 mg succinylcholine (Anectine;Quelicin) (20 mg/mL) injection Intravenous, PRN, Starting on Wed04/30/23 at 1533, Until Wed04/30/23 at 1600, Anesthesia Intra-op, Routine Given 04/30/2023 3:33 PM EST 100 mg documented in this encounter Care Teams Drug Abuse Resistance Education Officer Relationship Specialty Start Date End Date Ana Gillespie APRN [address] [place] [address] PCP - General Family Medicine 02/03/19 documented as of this encounter
--- OUTSIDE RECORDS SUMMARY | 2023-12-03 14:55 | XMS_ITS | Encounter Summary ---
Author Organization [facility] Address [facility] [place] [address] Care Team Providers Care Cavity Pump Operator Name Role Phone Ana Gillespie VAUGHN Primary Care Provider [phone] Encounter Details Date Type Department Care Team (Latest Contact Info) Description 05/09/2023 Travel Social History Tobacco Use Types Packs/Day [...] 12/07/2023 1:00 PM EDT Appointment Pulmonology at [place] [phone] 12/07/2023 2:00 PM EDT Office Visit Thoracic Surgery at [place] [phone] Geronimo Mojica MD [facility] [place] [address] 12/27/2023 11:30 AM EDT Office Visit Pulmonology at [place] [phone] Noe Cuenca MD [facility] [place] [address] Scheduled Procedures Name Priority Associated Diagnoses Date/Ti me EGD, UPPER GI ENDOSCOPY (WRV U 2.09) Peptic stricture of esophagus documented as of this encounter Visit Diagnoses Not on filedocumented in this encounter Care Teams Cavity Pump Operator Relationship Specialty Start Date End Date Ana Gillespie APRN [address] [place] [address] PCP - General Family Medicine 02/03/19 documented as of this encounter
--- OUTSIDE RECORDS SUMMARY | 2023-12-03 14:55 | XMS_ITS | Encounter Summary ---
Author Organization [facility] Address [facility] [place] [address] Care Team Providers Care Patrol Community Service Officer Name Role Phone Ana Gillespie VAUGHN Primary Care Provider [phone] Encounter Details Date Type Department Care Team (Late st Contact Info) Description 05/08/2023 Notes [place] [phone] Nisha Chavez MD [facility] [place] [address] Social History Tobacco Use Types Packs/Day Years [...] on file documented as of this encounter Progress Notes * Nisha Chavez MD - 05/08/2023 11:59 PM EST At 15:40 received call from pt's regarding pt's G tube. Last night G tube was dislodged andcare was sought at [facility]. A barba catheter was placed into the tract and pt was asked to contact regarding G tube replacement. At this time barba remains in tract. states he is able to administer medications via the tube. However, he is not able to administer tube feeds at this time. Pt does not take any PO. Advised pt to leave barba in tract and continue to administer medications as scheduled. Will coordinate G tube replacement during the week. In regards to tube feeds. Will call pt back to recommend bolus feeds via syringe through the barba.He should be able to scrap picker a compatible syringe at his closest hospital. 05/09/23 10:03 AM Received a call this morning from patient's stating barba within G tube tract is now clogged with medication material. Will coordinate for patient to come in today for G tube exchange. Nisha Chavez MD Interventional Radiology, PGY3 documented in this encounter Plan of Treatment Upcoming Encounters Date Type Department Care Team (Late st Contact Info) Description 12/07/2023 1:00 PM EDT Appointment [place] [phone] 12/07/2023 2:00 PM EDT Office Visit [place] [phone] Geronimo Mojica MD [facility] [place] [address] 12/27/2023 11:30 AM EDT Office [place] [phone] Noe Cuenca MD [facility] [place] [address] Scheduled Procedures Name Priority Associated Diagnoses Date/Ti me EGD, UPPER GI ENDOSCOPY (WRV U 2.09) Peptic stricture of esophagus documented as of this encounter Visit Diagnoses Not on filedocumented in this encounter Care Teams Patrol Community Service Officer Relationship Specialty Start Date End Date Ana Gillespie APRN [address] [place] [address] PCP - General Family Medicine 02/03/19 documented as of this encounter
--- OUTSIDE RECORDS SUMMARY | 2023-12-03 14:55 | XMS_ITS | Encounter Summary ---
Author Organization [place] [address] Care Team Providers Care Sewer Head Name Role Phone Ana Gillespie VAUGHN Primary Care Provider [phone] Reason for Referral * Diagnostic Test (Routine) - Closed Specialty Diagnoses / Procedures Referred By Esperanza rodríguez Referred To Contact Radiology Diagnoses Farrell's esophagus with high grade dysplasia Gastrostomy tube in place Procedures IR G-Tube Check/Change Steven Harding MD [facility] [place] [address] [place] [address] Referral ID Status Reason Start Date Expiration Date V isits Requested Visits Authorized [id number] Closed Specialty Service Requested 03/09/2023 09/06/2024 1 1 Reason for Visit * Diagnostic Test (Routine) - Closed Specialty Diagnoses / Procedures Referred By Esperanza rodríguez Referred To Contact Radiology Diagnoses Farerll's esophagus with high grade dysplasia Gastrostomy tube in place Procedures IR G-Tube Check/Change Steven Harding MD [facility] [place] [address] [place] [address] Referral ID Status Reason Start Date Expiration Date V isits Requested Visits Authorized [id number] Closed Specialty Service Requested 03/09/2023 09/06/2024 1 1 Encounter Details Date Type Department Care Team (Latest Contact Info) Description 03/10/2023 12:57 PM EDT - 03/10/2023 11:59 PM EDT Hospital [place] [phone] Azeem Alarcon MD [facility] [place] [address] Farrell's esophagus with high grade dysplasia; Gastrostomy tube in place Discharge Disposition: Home Social History Tobacco Use [...] Sign Reading Time Taken Comments Blood Pressure 121/50 03/10/2023 3:27 PM EDT Pulse 61 03/10/2023 3:27 PM EDT Temperature 35.6 ??C (96 ??F) 03/10/2023 3:27 PM EDT Respiratory Rate 14 03/10/2023 3:27 PM EDT Oxygen Saturation 100% 03/10/2023 3:27 PM EDT Inhaled Oxygen Concentration - - Weight - - Height - - Body Mass Index - - documented in this encounter Discharge Instructions * Discharge Instructions* Sergey Jordan RN - 03/10/2023 4:17 PM EDT [facility] Interventional Radiology Discharge Instructions for Feeding Tube Care You [...] or its attachments. INTERVENTIONAL RADIOLOGY PHONE NUMBERS [phone] If you have a NON Low profile feeding tube, call with any questions or concerns. During regular office hours call: [phone]. If it is after regular office hours, weekends or holidays, please call [phone] and ask to speak to the Asset Protection Representative hospital monitor for Interventional Radiology. If you have a low profile ???ESTRELLITA-BARLOW?? feeding tube, please call Dejah Stauffer RN for any issues: [phone]. Revised 02/23/19 documented in this encounter Medications [...] meter kit. 1 each 0 12/14/2014 Insulin [place], Disposable, (BD INSULIN PEN NEEDLE UF MINI) [...] 02/10/2020 04/30/2023 documented as of this encounter Progress Notes * Sergey Jordan RN - 03/10/2023 8:27 AM EDT [facility] DATABASE Name: Jennifer Irving Date of : 1960 AGE: 62 y.o. Address: [address] [address] Phone: There are no phone numbers on file. Mobile: Telephone Information: Referring Provider: Steven Harding REASON FOR VISIT: G-tube check/exchange Order Questions Answers Where will [facility] be [facility] Radiology [120] Is the patient on anticoagulant / antiplatelet therapy ? No Reason for exam and clinical history: G-tube clogged, durable enteric access for nutrition Does patient require sedation? None Planned procedure: G-tube check/change Labs to be [...] Gtube exchange Local 03-10-23 G-Tube Exchange local 1604 to procedure room proc2 via stretcher. Onto table supine. All monitors, [...] 12/07/2023 1:00 PM EDT [place]oint[place] [phone] 12/07/2023 2:00 PM EDT Office [place] [phone] Geronimo Mojica MD [facility] DR THORACIC SURGERY [place], [place] [phone] 12/27/2023 11:30 AM EDT Office [place] [phone] Noe Cuenca MD [facility] [place] [address] Scheduled Procedures Name Priority Associated Diagnoses Date/Ti me EGD, UPPER GI ENDOSCOPY (WRV U 2.09) Peptic stricture of esophagus documented as of this encounter Procedures Procedure Name Priority Date/Time Associated Diagnosis Comments IR G-TUBE CHECK/CHANGE Routine 03/10/2023 4:24 PM EDT Farrell's esophagus with high grade dysplasia Gastrostomy tube in place POCT GLUCOSE Routine 03/10/2023 3:25 PM EDT documented in this encounter Results [...] start of the procedure to verify all barlow aspects; including the correct patient and planned procedure, procedure location, informed consent, and all relevant critical information, all of which were correct. The patient was positioned supine on the procedure table. ??The epigastrium including the previously placed gastrostomy catheter was cleaned and prepped in typical sterile fashion; maximal sterile barrier technique was used throughout. ?? The procedure was performed under fluoroscopic guidance. ??A pharmacy laboratory technician fluoroscopic image was obtained. ??Contrast was injected through the gastrostomy catheter and another fluoroscopic image was obtained. ??Through the catheter, an 0.035 Amplatz wire was advanced. ??The catheter was removed. ??Over the wire, a new 16-Fr ztj-ffr-lmlmiae (ESTRELLITA) gastrostomy catheter was advanced. ??The retention [...] gastric lumen. ?? Exchange for new 16-Fr mht-otu-qxtycet (ESTRELLITA) catheter positioned within the stomach. ?? Impression: Successful gastrostomy catheter exchange. ??The catheter may be used immediately. Resident/Fellow: None. Attending: Dr. Geronimo Chambers. I, Dr. Chambers, was present throughout the procedure. Azeem Alarcon MD IMG IR ORDERABLES * POCT Glucose (03/10/2023 3:25 PM EDT) POC Glucose 76 65 - 199 mg/dL [facility] Comment: Supplemental ranges: <140 mg/dL before meals <180 mg/dL all other times of the day Blood 03/10/2023 3:25 PM EDT 03/10/2023 3:25 PM EDT Azeem Alarcon MD POINT OF CARE TEST O RDERABLES [facility] [place] [place] [address] documented in this encounter Visit Diagnoses Diagnosis Farrell's esophagus with high grade dysplasia Farrell's esophagus Gastrostomy tube in place documented in this encounter Administered Medications Inactive Administered Medications - up to 3 most recent administrations Medication Order MAR Action Action Date Dose Rate Site lidocaine (Glydo) 2 % gel 6 mL 6 mL, Topical (Top), EVERY 4 HOURS PRN, Starting on Wed03/10/23 at 1518, Until Wed03/10/23 at 1644, Pain, For use in Interventional Radiology (IR) only for procedure with direct provider supervision and verbal order., Angio/IR (Intra-Procedure), Routine Given 03/10/2023 3:24 PM EDT 6 mLs documented in this encounter Care Teams Sewer Head Relationship Specialty Start Date End Date Ana Gillespie APRN [address] [place] [address] PCP - General Family Medicine 02/03/19 documented as of this encounter
--- OUTSIDE RECORDS SUMMARY | 2023-12-03 14:55 | XMS_ITS | Encounter Summary ---
Author Organization [facility] Address [facility] [place] [address] Care Team Providers Care Corporate Compliance Manager Name Role Phone Ana Gillespie VAUGHN Primary Care Provider [phone] Encounter Details Date Type Department Care Team (Late st Contact Info) Description 03/30/2023 4:30 PM EST - 03/30/2023 5:00 PM EST Surgery Gastroenterology at [facility] [place] [address] David Dejesus MD [facility] [place] [address] EGD,WITH DILATION ESOPHAGUS WITH BALLOON,< 30 MM [...] Sign Reading Time Taken Comments Blood Pressure 112/56 03/30/2023 3:17 PM EST Pulse 52 03/30/2023 3:17 PM EST Temperature 36.6 ??C (97.9 ??F) 03/30/2023 3:17 PM ES T Respiratory Rate 14 03/30/2023 3:17 PM EST Oxygen Saturation 98% 03/30/2023 3:17 PM EST Inhaled Oxygen Concentration - - Weight 66.2 kg (146 lb) 03/30/2023 3:17 PM EST Height 152.4 cm (5') 03/30/2023 3:17 PM EST Body Mass Index 28.51 03/30/2023 3:17 PM EST documented in this encounter Discharge Instructions * Discharge Instructions* Lucia Agustin RN - 03/30/2023 6:34 PM EST Upper [...] the day after the procedure, use an taqn-ilu-hnzxcjj spray to numb your throat. Sucking on [...] occurs, please contact your Doctor. Please call [phone] before 8pm Mon-Fri with problems, questions or concerns. If you call after 8pm or on weekends, call the Hospital at [phone] and ask to speak to the Fuel Oil Truck Driver nuclear weapons specialist and the roller presser operator will contact that person for you. [...] any problems. Where can you learn more? [facility] View your After Visit Summary and more online at [email or web address] If you would like to provide feedback about your hospital experience, please call the Office of Patient and Family Relations at . If you have received this After Visit Summary in error, please immediately return it in person to the department, or notify the [facility] Privacy Office by calling toll free at between the hours of 8AM and 5PM to arrange for our retrieval of the documents at no cost to you. Content Version: 12.2 ?? [phone] [employer]. Care instructions adapted under license by [facility] [employer]. If you have questions about a medical condition or this instruction, always ask your healthcare professional. [employer] disclaims any warranty or liability for your [...] the day after the procedure, use an ebzv-fjc-ywdfczr spray to numb your throat. Sucking on [...] occurs, please contact your Doctor. Please call [phone] before 8pm Mon-Fri with problems, questions or concerns. If you call after 8pm or on weekends, call the Hospital at [phone] and ask to speak to the Fuel Oil Truck Driver nuclear weapons specialist and the roller presser operator will contact that person for you. When should you call for help? Call 241 anytime you think you may need emergency [...] any problems. Where can you learn more? [facility] View your After Visit Summary and more online at [email or web address] If you would like to provide feedback about your hospital experience, please call the Office of Patient and Family Relations at . If you have received this After Visit Summary in error, please immediately return it in person to the department, or notify the [facility] Privacy Office by calling toll free at between the hours of 8AM and 5PM to arrange for our retrieval of the documents at no cost to you. Content Version: 12.2 ?? [phone] [employer]. Care instructions adapted under license by [facility]. If you have questions about a medical condition or this instruction, always ask your healthcare professional. [employer] disclaims any warranty or liability for your [...] meter kit. 1 each 0 12/14/2014 Insulin [place], Disposable, (BD INSULIN PEN NEEDLE UF MINI) [...] 12/07/2023 1:00 PM EDT Appointment [place] [address] 12/07/2023 2:00 PM EDT Office Visit [place] [phone] Geronimo Mojica MD [facility] [place] [address] 12/27/2023 11:30 AM EDT Office [place] [phone] Noe Cuenca MD [facility] [place] [address] Scheduled Procedures Name Priority Associated Diagnoses Date/Ti me EGD, UPPER GI ENDOSCOPY (WRV U 2.09) Peptic stricture of esophagus documented as of this encounter Procedures Procedure Name Priority Date/Time Associated Diagnosis Comments Up Gi Endoscopy, Rick Chavez, 30Mm (89694) 03/30/2023 6:02 PM EST Peptic stricture of esophagus UPPER GI ENDOSCOPY Routine 03/30/2023 5: 58 PM EST documented in this encounter Results * UPPER GI ENDOSCOPY (03/30/2023 5:58 PM EST) UPPER GI ENDOSCOPY [facility] Endoscopy Procedure Date: 03/30/2023 5:58 PM ? Patient Name: Jennifer Irving ? Date of : 1960 ? Age: 62 ? Order #: [id number] ? Instrument Name: [id number] ? Procedure: ? Upper GI endoscopy Indications: ? Stenosis of the esophagus Providers: ? David Dejesus MD, Jennifer Howell ? Theodora Garibay, ? Supervisor Painting [employer] Referring : ?Ana Keith: ? Propofol per Anesthesia Complications: ? No [...] and distal stricture using the 6-7-8 and 8-9-10 ? and 10-11-12 mm balloons. There were [...] PROVATION 03/30/2023 5:58 PM EST Ana Gillespie GLOBAL COMPENSATION MANAGER GENERAL SURGICAL ORD ERABLES PROVATION documented in this encounter Visit Diagnoses Diagnosis Peptic stricture of esophagus Stricture and stenosis of esophagus documented in this encounter Active and Recently Administered Medications Times are shown in EST. Continuous Medication Order 03/28/2023 03/29/2023 03/30/2023 lactated ringers infusion (CANCELED) 100 mL/hr, Intravenous, CONTINUOUS, Starting on Wed03/30/23 at 1600, Until Wed03/30/23 at 1903, Endoscopy (Day of Procedure) 1801 (New Bag - Prov ider: Almita Lorenzo CRNA)1806 (Anesthesia Volume Adjustment - Provider: Almita Lorenzo CRNA) documented in this encounter Care Teams Corporate Compliance Manager Relationship Specialty Start Date End Date Ana Gillespie APRN [address] [place] [address] PCP - General Family Medicine 02/03/19 documented as of this encounter
--- OUTSIDE RECORDS SUMMARY | 2023-12-03 14:55 | XMS_ITS | Encounter Summary ---
Author Organization [facility] [place] [address] Care Team Providers Care Gauge Controller Name Role Phone Ana Gillespie APRN Primary Care Provider [phone] Encounter Details Date Type Department Care Team (Late st Contact Info) Description 03/30/2023 6:01 PM EST Anesthesia Event [place] [phone] Betty Bhagat MD [facility] [place] [address] Cristine Gomez CRNA [facility] [place] [address] Anesthesia Record Procedure Summary Procedure Name Responsible Anesthesiologist Anesthesia Start Time Anesthesia Stop Time EGD,WITH DILATION ESOPHAGUS WITH BALLOON,< 30 MM (WRVU 2.67) (Trunk) Betty Bhagat MD 03/30/23 1801 03/30/23 1836 Events Date Time Event Comment 03/30/2023 1205 1801 AN Verify 1801 Start 1801 An Start Data 1806 An Induction 1807 Anesthesia Ready 1808 Procedure Start 183 an stop data 183 Recovery or ICU Handoff Sayra ent care was transferred to the destination unit staff after review of the patient's medical history, current anesthetic/surgical status and plan, according to the Provider Handoff Checklist. 1836 Stop Meds Name Total IV Lidocaine 60 mg Propofol 50 mg Propofol INF 198.6 mg lactated ringers infusion 500 mL * Agents Name O2 Air N2O O2 Auxiliary Flowmeter 1 * Blood No blood administrations on file. Lines, Drains, and Airways Type Details Placement Removal Enterostomy Tube 03/10/23; 1618; jacob rostomy tube with balloon (16F); LUQ (left upper quadrant); feeding; MD Chambers G-Tube exchange 16Fr. 07/09/23, 09/17/23 exchanged with 16fr by ROSLYN Cooper, 10/14/23 Tube exchange 16 fr, MD Hart 03/10/23 1618 by Sergey Jordan RN documented in this encounter Social History [...] OR Notes * Anesthesia Postprocedure Evaluation - Betty Bhagat MD - 03/30/2023 6:39 PM EST Department of Anesthesiology Post-procedure Note Patient: Jennifer Irving Procedure Summary Date: 03/30/23 Room / Location: [facility] ENDO 2 / [facility] ENDOSCOPY Anesthesia Start: 1800 Anesthesia Stop: Procedure: EGD,WITH DILATION ESOPHAGUS WITH BALLOON,< 30 MM (WRVU 2.67) (Trunk) Diagnosis: Peptic stricture of esophagus (peptic stricture dilation - please schedule Wednesday before ) Surgeons: David Dejesus MD Responsible Provider: Betty Bhagat MD Anesthesia Type: general ASA Status: 3 All Anesthesia Providers: Anesthesiologist: Betty Bhagat MD PIGMENT FURNACE TENDER: Cristine Gomez CRNA Vitals Value Taken Time BP 114/57 03/30/23 1833 Temp Pulse Resp 16 03/30/23 1833 SpO2 99 % 03/30/23 1839 Pain Level 0 03/30/231832 Vitals shown include unfiled device data. Patient Location: PACU/[facility] Level of Consciousness: Conscious but Sleepy Pain Management: Satisfactory Analgesia PONV: None Cardiovascular Status: Hemodynamically Stable Respiratory Status: Stable Respiratory Status and Supplemental O2 (NC or FM) Postoperative Fluid Status: Intravascular EUvolemia Possible Anesthetic Complications: NONE apparent at time of evaluation Final Primary Anesthesia Type: MAC (The anesthetic type performed was the same as planned.) Comments: Betty Bhagat MD * Anesthesia Preprocedure Evaluation - Betty Bhagat MD - 03/30/2023 12:05 PM EST Pre-Anesthesia Evaluation for: Jennifer Irving a 62 y.o. female. Procedure(s): [facility], [facility] Patient Active Problem List Diagnosis [...] IR G-Tube Check/Change 11/27/2022 Hang Cooper PA [facility] INTERVENTIONL RAD ??? IR G-TUBE CHECK/CHANGE 03/10/2023 IR G-Tube Check/Change 03/10/2023 Geronimo Chambers, [facility] INTERVENTIONL RAD ??? IR G-TUBE PLACEMENT 09/11/2022 IR G-Tube Placement 09/11/2022 Moustapha Hart MD [facility] INTERVENTIONL RAD ??? IR SUTURE RELEASE 09/25/2022 IR Suture Release 09/25/2022 Yoselin Ghosh PA [facility] INTERVENTIONL RAD ??? PERCUTANEOUS GASTROSTOMY N/A 09/11/2022 PERCUTANEOUS GASTROSTOMY performed by Aiden Flores MD at [facility] CATY ??? PRO COLONOSCOPY, BIOPSY N/A 03/20/2016 COLONOSCOPY FLEXIBLE, WITH BX performed by David Dejesus MD at [facility] ENDOSCOPY ??? PRO COLONOSCOPY, DIAGNOSTIC N/A 03/01/2020 COLONOSCOPY, DIAGNOSTIC performed by David Dejesus MD at [facility] ENDOSCOPY ??? PRO ENDOSCOPIC US EXAM, ESOPH N/A 03/31/2022 UPPER EUS- ENDOSCOPIC ULTRASOUND performed by David Dejesus MD at [facility] ENDOSCOPY ??? PRO UP GI ENDOSCOPY, BALL DIL, 30MM N/A 12/24/2022 EGD,WITH DILATION ESOPHAGUS WITH BALLOON,< 30 MM (WRVU 2.67) performed by David Dejesus [facility] ENDOSCOPY ??? PRO UP GI ENDOSCOPY, BALL DIL, 30MM N/A 01/12/2023 EGD,WITH DILATION ESOPHAGUS WITH BALLOON,< 30 MM (WRVU 2.67) performed by David Dejesus [facility] ENDOSCOPY ??? PRO UP GI ENDOSCOPY, BALL DIL, 30MM N/A 02/26/2023 EGD,WITH DILATION ESOPHAGUS WITH BALLOON,< 30 MM (WRVU 2.67) [facility] ??? PRO UP GI ENDOSCOPY, BALL DIL, 30MM N/A 03/16/2023 EGD,WITH DILATION ESOPHAGUS WITH BALLOON,< 30 MM (WRVU 2.67) performed by David Dejesus [facility] ENDOSCOPY ??? PRO UPPER GI ENDOSCOPY, BIOPSY N/A 04/03/2014 UPPER GASTROINTESTINAL ENDOSCOPY,WITH BIOPSY SINGLE OR MULTIPLE [facility] ??? PRO UPPER GI ENDOSCOPY, BIOPSY N/A 03/20/2016 EGD WITH BIOPSY performed by David Dejesus MD at [facility] ENDOSCOPY ??? PRO UPPER GI ENDOSCOPY, BIOPSY N/A 11/22/2018 EGD WITH BIOPSY (WRVU 2.49) performed by David Dejesus MD at [facility] ENDOSCOPY ??? PRO UPPER GI ENDOSCOPY, BIOPSY N/A 03/01/2020 UPPER GASTROINTESTINAL ENDOSCOPY,WITH BIOPSY SINGLE OR MULTIPLE (WRVU 2.49) performed by David Dejesus MD at [facility] ENDOSCOPY ??? PRO UPPER GI ENDOSCOPY, BIOPSY N/A 09/23/2021 EGD WITH BIOPSY (WRVU 2.49) performed by David Dejesus MD at [facility] ENDOSCOPY ??? PRO UPPER GI ENDOSCOPY, BIOPSY N/A 03/31/2022 EGD WITH BIOPSY (WRVU 2.49) performed by David Dejesus MD at [facility] ENDOSCOPY ??? PRO UPPER GI ENDOSCOPY, BIOPSY N/A 07/03/2022 EGD WITH BIOPSY (WRVU 2.49) performed by David Dejesus MD at [facility] ENDOSCOPY ??? PRO UPPER GI ENDOSCOPY, DIAGNOSTIC N/A 04/03/2014 EGD, UPPER GI ENDOSCOPY performed by David Dejesus MD at [facility] ENDOSCOPY ??? PRO UPPER GI ENDOSCOPY, DIAGNOSTIC N/A 03/01/2020 EGD, UPPER GI ENDOSCOPY performed by David Dejesus MD at [facility] ENDOSCOPY ??? PRO UPPER GI ENDOSCOPY, DIAGNOSTIC N/A 09/09/2022 EGD, UPPER GI ENDOSCOPY (WRVU 2.09) performed by Ayo Russ MD at [facility] MAIN OR Social History Tobacco Use ??? Smoking status: Former Years: 11 Types: Cigarettes Quit date: 02/26/2021 Years since quittin.0 ??? Smokeless tobacco: Never Substance Use Topics [...] ASA 3 general, with a(n) intravenous induction 62 y/o woman with a PMH of esophageal stricture, cardiomyopathy (EF 32%) here for EGD/dilation. Tolerated multiple prior procedures with MAC. Required ETT for prior procedure due to food in esophagus, possible event for prior MAC. Plan for GA, ETT, RSI. Region - Other Informed Consent: Anesthetic plan and risks discussed with patient. Plan discussed with PIGMENT FURNACE TENDER and attending. Anesthesia Screening documented in this encounter Plan of Treatment Upcoming Encounters Date Type Department Care Team (Late st Contact Info) Description 12/07/2023 1:00 PM EDT Appointment [place] [phone] 12/07/2023 2:00 PM EDT Office Visit [place] [phone] Geronimo Mojica MD [facility] [place] [address] 12/27/2023 11:30 AM EDT Office [place] [phone] Noe Cuenca MD [facility] [place] [address] Scheduled Procedures Name Priority Associated Diagnoses Date/Ti me EGD, UPPER GI ENDOSCOPY (WRV U 2.09) Peptic stricture of esophagus documented as of this encounter Visit Diagnoses Not on filedocumented in this encounter Administered Medications Inactive Administered Medications - up to 3 most recent administrations Medication Order MAR Action Action Date Dose Rate Site lactated ringers infusion 100 mL/hr, Intravenous, CONTINUOUS, Starting on Wed03/30/23 at 1600, Until Wed03/30/23 at 1903, Endoscopy (Day of Procedure) New Bag 03/30/2023 6:01 PM EST lidocaine (pf) (Xylocaine) (20 mg/mL) 2% injection syringe Intravenous, PRN, Starting on Wed03/30/23 at 1806, Until Wed03/30/23 at 1840, Anesthesia Intra-op, Routine Given 03/30/2023 6:06 PM EST 60 mg propofoL (Diprivan) (10 mg/mL) infusion Intravenous, CONTINUOUS PRN, Starting on Wed03/30/23 at 1806, Until Wed03/30/23 at 1840, Anesthesia Intra-op, Routine New Bag 03/30/2023 6:06 PM EST 150 mcg/kg/min 59.58 mL/hr propofoL (Diprivan) 10 mg/mL bolus injection (Anesthesia) Intravenous, PRN, Starting on Wed03/30/23 at 1806, Until Wed03/30/23 at 1840, Anesthesia Intra-op Given 03/30/2023 6:06 PM EST 50 mg documented in this encounter Care Teams Gauge Controller Relationship Specialty Start Date End Date Ana Gillespie APRN [address] [place] [address] PCP - General Family Medicine 02/03/19 documented as of this encounter
--- OUTSIDE RECORDS SUMMARY | 2023-12-03 14:55 | XMS_ITS | Encounter Summary ---
[place] [address] Care Team Providers Care Transfer Car Operator Name Role Phone Ana Gillespie VAUGHN Primary Care Provider [phone] Encounter Details Date Type Department Care Team (Late st Contact Info) Description 05/25/2023 Telephone [place] [address] Chiquita James, RN Social History [...] Telephone Encounter - Chiquita James, RN - 05/25/2023 8:52 AM EST Incoming VM from Jennifer's [facility] to cancel her endoscopy today due to weather, they are expecting 8 inches of snow and do not feel it is safe to drive in. He is requesting a call back to re-schedule her and send their apologies for canceling. Forwarded documented in this encounter Plan of Treatment Upcoming Encounters Date Type Department Care Team (Late Contact Info) Description 12/07/2023 1:00 PM EDT Appointment [place] [phone] 12/07/2023 2:00 PM EDT Office Visit [place]acic [place] [phone] Geronimo Mojica MD [facility] [place] [address] 12/27/2023 11:30 AM EDT Office Visit [place] [address] Noe Cuenca MD [facility] [place] [address] Scheduled Procedures Name Priority Associated Diagnoses Date/Ti me EGD, UPPER GI ENDOSCOPY (WRV U 2.09) Peptic stricture of esophagus documented as of this encounter Visit Diagnoses Not on filedocumented in this encounter Care Teams Transfer Car Operator Relationship Specialty Start Date End Date Ana Gillespie APRN [address] [place] [address] PCP - General Family Medicine 02/03/19 documented as of this encounter
--- OUTSIDE RECORDS SUMMARY | 2023-12-03 14:55 | XMS_ITS | Encounter Summary ---
Author Organization [facility] [place] [address] Care Team Providers Care Upholstery Tech Name Role Phone Ana Gillespie APRN Primary Care Provider [phone] Encounter Details Date Type Department Care Team (Casimiro shetty Contact Info) Description 04/15/2023 Telephone Cardiology at [address] [phone] hCela Walsh, RN Social History Tobacco Use Types Packs/Day [...] Miscellaneous Notes * Telephone Encounter - Chela Walsh RN - 04/15/2023 2:51 PM EST Cam[place], spouse calling to report that he spot checked her BP and it was 81/43. She is feeling well. He rechecked it 30 minutes later and is 117/63. She is acting well and has been up and about as usual. Advised to stop taking her BP unless she is having a problem. It is okay to check a few time a weekbut he does not need to take it just because. He is relieved to know that he does not have to worry about getting her BP multiple times a day. documented in this encounter Plan of Treatment Upcoming Encounters Date Type Department Care Team (Late Contact Info) Description 12/07/2023 1:00 PM EDT Appointment [place] [address] 12/07/2023 2:00 PM EDT Office [place] [phone] Geronimo Mojica MD [facility] [place] [address] 12/27/2023 11:30 AM EDT Office [place] [address] Noe Cuenca MD [facility] [place] [address] Scheduled Procedures Name Priority Associated Diagnoses Date/Ti me EGD, UPPER GI ENDOSCOPY (WRV U 2.09) Peptic stricture of esophagus documented as of this encounter Visit Diagnoses Not on filedocumented in this encounter Care Teams Upholstery Tech Relationship Specialty Start Date End Date Ana Gillespie APRN [address] [place] [address] PCP - General Family Medicine 02/03/19 documented as of this encounter
--- OUTSIDE RECORDS SUMMARY | 2023-12-03 14:55 | XMS_ITS | Encounter Summary ---
Author Organization [facility] Address [facility] [place] [address] Care Team Providers Care Family Coach Name Role Phone Ana Gillespie VAUGHN Primary Care Provider [phone] Encounter Details Date Type Department Care Team (Latest Contact Info) Description 03/16/2023 11:29 AM EST - 03/16/2023 2:40 PM EST Hospital Encounter Gastroenterology at [facility] [place] [address] David Dejesus MD [facility] [place] [address] Discharge Disposition: Home Social History Tobacco Use [...] Sign Reading Time Taken Comments Blood Pressure 110/60 03/16/2023 2:20 PM EST Pulse 51 03/16/2023 11:49 AM EST Temperature 36.7 ??C (98 ??F) 03/16/2023 11: 49 AM EST Respiratory Rate 18 03/16/2023 2:20 PM EST Oxygen Saturation 97% 03/16/2023 2:20 PM EST Inhaled Oxygen Concentration - - Weight 65.2 kg (143 lb 11.2 oz) 023 11:49 AM EST Height - - Body Mass Index 28.06 01/15/2023 11:07 AM EDT documented in this encounter Discharge Instructions * Discharge Instructions* Patenaude, Irene N, RN - 03/16/2023 1:40 PM EST Esophageal Dilation: What to Expect at Home Your Recovery After you have esophageal dilation, you will be able to go home after your doctor or nurse checks to make sure you are not having any problems. This care sheet gives you a general idea about how long it will take for you to recover. But each person recovers at a different pace. Follow the steps below to get better as quickly as possible. How can you care for yourself at home? Activity Rest as much as you need to after you go home. You should be able to go back to your usual activities the day after the procedure. Diet Follow your doctor's directions for eating after the procedure. Clear Liquids Soft Diet Drink plenty of fluids (unless your doctor has told you not to). Do not drink alcohol. Medicines Your doctor will tell you if and when you can restart your medicines. He or she will also give you instructions about taking any new medicines. If you take aspirin or some other blood thinner, ask your doctor if and when to start taking it again. Make sure that you understand exactly what your doctor wants you to do. If you have a sore throat the day after the procedure, use an odxp-acn-elilqdw spray to numb your throat. Sucking on throat lozenges and gargling with warm salt water may also help relieve your symptoms. Follow-up care is a fam part of your treatment and safety. Be sure to make and go to all appointments, and call your doctor if you are having problems. It's also a good idea to know your test resultsand keep a list of the medicines you take. Other instructions For your safety, do not drive or operate machinery until the day after your test. Do not sign legal documents or make major decisions until the day after your test. The anesthesia can make it hard for [...] you may be unsteady on your feet. Do not smoke if you are alone. IV site: Slight redness or tenderness is normal, you can use a warm compress if you would like. If tenderness and/or redness increase or if foul drainage occurs, please contact your Doctor. Please call [phone] before 8pm Mon-Fri with problems, questions or concerns. If you call after 8pm or on weekends, call the Hospital at [phone] and ask to speak to the Child & Adolescent Psychiatrist phone engineer and the water plant pump operator supervisor will contact that person for you. When should you call for help? Call [phone] anytime you think you may need emergency care. For example, call if: You passed out (lost consciousness). You have trouble breathing. Your stools are maroon or very bloody. Call your doctor now or seek immediate medical care if: You have new or worse belly pain. You have a fever. You haveLI blood in your stools. You are sick to your stomach and cannot drink fluids. You cannot pass stools or gas. You have pain that does not get better after you take pain medicine. Watch closely for changes in your health, and be sure to contact your doctor if: Your throat still hurts after a day or two. You do not get better as expected. Where can you learn more? Visit our health information library at [email or web address] You can also view health information on pushd, your personal patient account. Log in or sign uptoday. Enter J014 in the search box to learn more about Esophageal Dilation: What to Expect at Home. Current as of: December 18, 2018Content Version: 12.4 ?? 7332-5350 Scoreloop. Care instructions adapted under license by [facility]. If you have questions about a medical condition or this instruction, always ask your healthcare professional. [employer] disclaims any warranty or liability for your [...] meter kit. 1 each 0 12/14/2014 Insulin [place], Disposable, (BD INSULIN PEN NEEDLE UF MINI) [...] of this encounter H&P Notes * Parminder Moa MD - 03/16/2023 12:08 PM EST Gastroenterology and Hepatology Pre-Procedure History and Physical Exam Procedure: EGD, stricture dilatation Indication: serial dilatation of esophageal stricture. Last EGD 02/2023 w/ balloon dilatation to 8mm. Patient Active Problem List Diagnosis Code GERD [...] 12/07/2023 1:00 PM EDT Appointment [place] [address] 12/07/2023 2:00 PM EDT Office [place] [phone] Geronimo Mojica MD [facility] [place] [address] 12/27/2023 11:30 AM EDT Office [place] [phone] Noe Cuenca MD [facility] [place] [address] Scheduled Procedures Name Priority Associated Diagnoses Date/Ti me EGD, UPPER GI ENDOSCOPY (WRV U 2.09) Peptic stricture of esophagus documented as of this encounter Procedures Procedure Name Priority Date/Time Associated Diagnosis Comments Up Gi Endoscopy, Rick Chavez, 30Mm ([id number]) 03/16/2023 1:03 PM EST Peptic stricture of esophagus UPPER GI ENDOSCOPY Routine 03/16/2023 12 :23 PM EST POCT GLUCOSE Routine 03/16/2023 12:05 PM EST documented in this encounter Results * UPPER GI ENDOSCOPY (03/16/2023 12:23 PM EST) [facility] UPPER GI ENDOSCOPY [facility] Endoscopy Procedure Date: 03/16/2023 12:23 PM ? Patient Name: Jennifer Irving ? N: [id number] ? Date of : 1960 ? Age: 62 ? Order #: [id number] ? Instrument Name: [id number] ? Procedure: ? Upper GI endoscopy Providers: ? David Dejesus MD, Parminder Craig ? Ayo Mao James ? Tanja Blanchard MD: ?Ana Keith: ? Monitored Anesthesia Care Complications: ? No [...] procedure ? well. ? Findings: ? The patient's known peptic stricture was visualized ? at 23 cm. It was more open than previously but could ? not allow passage of the gastroscope. The stricture ? was dilated serially with a 6-7-8 and 8-9-10 mm TTS ? balloons. ? Moderate Sedation: ? Not applicable - See Anesthesia documentation Impression: ?- Peptic stricture dilation to 10 ? mm. Recommendation: ?- Return back in two weeks for ? dilation hopefully to 12 mm ? Attending Participation: ? I personally performed the entire procedure. ? ___ David Dejesus MD 03/16/2023 1:29:05 PM This report has been signed electronically. Number of Addenda: 0 Note Initiated On: 03/16/2023 12:23 PM PROVATION 03/16/2023 12:2 3 PM EST Ana Gillespie COMMUNITY EDUCATOR GENERAL SURGICAL ORD ERABLES PROVATION * POCT Glucose (03/16/2023 12:05 PM EST) POC Glucose 104 65 - 199 mg/dL [facility] Comment: Supplemental ranges: <140 mg/dL before meals <180 mg/dL all other times of the day Blood 03/16/2023 12:0 5 PM EST 03/16/2023 12:05 PM EST David Dejesus MD POINT OF CARE TEST ORDERABLES [facility] [place] [address] documented in this encounter Visit Diagnoses Not on filedocumented in this encounter Administered Medications Inactive Administered Medications - up to 3 most recent administrations Medication Order MAR Action Action Date Dose Rate Site lactated ringers infusion 100 mL/hr, Intravenous, CONTINUOUS, Starting on Wed03/16/23 at 1215, Until Wed03/16/23 at 1433, Day of Surgery (Day of Procedure) New Bag 03/16/2023 12:22 PM EST 100 mL/hr 100 mL/hr documented in this encounter Active and Recently Administered Medications Due to Daylight Saving Time, this section may contain times in both EDT and EST. Continuous Medication Order 03/14/2023 03/15/2023 03/16/2023 lactated ringers infusion (CANCELED) 100 mL/hr, Intravenous, CONTINUOUS, Starting on Wed03/16/23 at 1215, Until Wed03/16/23 at 1433, Day of Surgery (Day of Procedure) 1222 (New Bag - Prov ider: Tegan Caballero RN) documented in this encounter Care Teams Family Coach Relationship Specialty Start Date End Date Ana Gillespie APRN [address] [place] [address] PCP - General Family Medicine 02/03/19 documented as of this encounter
--- OUTSIDE RECORDS SUMMARY | 2023-12-03 14:55 | XMS_ITS | Encounter Summary ---
Author Organization [facility] [place] [address] Care Team Providers Care Shoddy Mill Worker Name Role Phone Ana Gillespie APRN Primary Care Provider [phone] Encounter Details Date Type Department Care Team (Late Contact Info) Description 03/30/2023 Orders [place] [phone] David Dejesus MD [facility] [place] [address] Peptic stricture of esophagus Social History Tobacco [...] 12/07/2023 1:00 PM EDT Appointment [place] [phone] 12/07/2023 2:00 PM EDT Office [place] [address] Geronimo Mojica MD [facility] [place] [address] 12/27/2023 11:30 AM EDT Office [place] [address] Noe Cuenca MD [facility] [place] [address] Scheduled Orders Name Type Priority Associated Diagnoses Orde r Schedule ENDOSCOPY CASE REQUEST: EGD, UPPER GI ENDOSCOPY (WRVU 2.09) Procedures Routine Peptic stricture of esophagus Ordered: 03/30/2023 Scheduled Procedures Name Priority Associated Diagnoses Date/Ti me EGD, UPPER GI ENDOSCOPY (WRV U 2.09) Peptic stricture of esophagus documented as of this encounter Visit Diagnoses Diagnosis Peptic stricture of esophagus Stricture and stenosis of esophagus documented in this encounter Care Teams Shoddy Mill Worker Relationship Specialty Start Date End Date Ana Gillespie APRN [address] [place] [address] PCP - General Family Medicine 02/03/19 documented as of this encounter
--- OUTSIDE RECORDS SUMMARY | 2023-12-03 14:55 | XMS_ITS | Encounter Summary ---
Author Organization [facility] Address [facility] [place] [address] Care Team Providers Care Transitional Studies Instructor Name Role Phone Ana Gillespie VAUGHN Primary Care Provider [phone] Encounter Details Date Type Department Care Team (Late st Contact Info) Description 04/30/2023 3:00 PM EST - 04/30/2023 3:45 PM EST Surgery Gastroenterology at [facility] [place] [address] David Dejesus MD [facility] DR [place] [address] EGD,WITH DILATION ESOPHAGUS WITH BALLOON,< 30 MM [...] Sign Reading Time Taken Comments Blood Pressure 108/72 04/30/2023 2:08 PM EST Pulse 50 04/30/2023 2:08 PM EST Temperature 36.2 ??C (97.1 ??F) 04/30/2023 2:08 PM ES T Respiratory Rate 16 04/30/2023 2:08 PM EST Oxygen Saturation 97% 04/30/2023 2:08 PM EST Inhaled Oxygen Concentration - - Weight 65.3 kg (144 lb) 04/30/2023 2:08 PM EST Height - - Body Mass Index 28.12 03/30/2023 3:17 PM EST documented in this encounter Discharge Instructions * Discharge Instructions* AggieIrene arteaga, RN - 04/30/2023 4:01 PM EST Esophageal Dilation: What to Expect [...] the day after the procedure, use an iggc-hif-vjcdtgg spray to numb your throat. Sucking on [...] occurs, please contact your Doctor. Please call [phone] before 8pm Mon-Fri with problems, questions or concerns. If you call after 8pm or on weekends, call the Hospital at [phone] and ask to speak to the Cement Patcher instrumentation and controls technician and the wrap knitting machine operator will contact that person for you. When should you call for help? Call [phone] anytime you think you may need emergency [...] more? Visit our health information library at [email or web address] You can also view health information on Soft Science, your personal patient account. Log in or sign uptoday. Enter J014 in the search box to learn more about Esophageal Dilation: What to Expect at Home. Current as of: December 18, 2018Content Version: 12.4 ?? 6823-5502 Cardoz. Care instructions adapted under license by [facility]. If you have questions about a medical condition or this instruction, always ask your healthcare professional. [employer] disclaims any warranty or liability for your [...] meter kit. 1 each 0 12/14/2014 Insulin [place], Disposable, (BD INSULIN PEN NEEDLE UF MINI) [...] H&P Notes * Parminder Mao MD - 04/30/2023 2:21 PM EST Gastroenterology and Hepatology Pre-Procedure History and Physical Exam Procedure: EGD, stricture dilatation Indication: serial dilatation of esophageal stricture. Last EGD 03/30 w/ balloon dilatation to 12 mm. Patient Active Problem List Diagnosis Code [...] 12/07/2023 1:00 PM EDT Appointment [place] [address] 12/07/2023 2:00 PM EDT Office [place] [phone] Geronimo Mojica MD [facility] DR [place]ACIC [place] [address] 12/27/2023 11:30 AM EDT Office [place] [address] Noe Cuenca MD [facility] [place]ULMONARY [place] [address] Scheduled Procedures Name Priority Associated Diagnoses Date/Ti me EGD, UPPER GI ENDOSCOPY (WRV U 2.09) Peptic stricture of esophagus documented as of this encounter Procedures Procedure Name Priority Date/Time Associated Diagnosis Comments POCT GLUCOSE Routine 04/30/2023 4:13 PM EST Up Gi Endoscopy, [place], 30Mm ([id number]) 04/30/2023 3:25 PM EST Peptic stricture of esophagus UPPER GI ENDOSCOPY Routine 04/30/2023 3: 14 PM EST POCT GLUCOSE Routine 04/30/2023 2:09 PM EST documented in this encounter Results * POCT Glucose (04/30/2023 4:13 PM EST) POC Glucose 81 65 - 199 mg/dL [facility] Comment: Supplemental ranges: <140 mg/dL before meals <180 mg/dL all other times of the day Blood 04/30/2023 4:13 PM EST 04/30/2023 4:13 PM EST David Dejesus MD POINT OF CARE TEST ORDERABLES Performing Organization Address City/State/[facility] Co de Phone Number [facility] [place] [address] * UPPER GI ENDOSCOPY (04/30/2023 3:14 PM EST) Pathologist [facility] UPPER GI ENDOSCOPY [facility] Endoscopy Procedure Date: 04/30/2023 3:14 PM ? Patient Name: Jennifer Irving ? Date of : 1960 ? Age: 62 ? Order #: [id number] ? Instrument Name: [id number] ? Procedure: ? Upper GI endoscopy Indications: ? Esophageal stricture Providers: ? David Dejesus MD, Parminder Craig ? Tapan Mao, ERI, ? Ayo Blanchard MD: ?Ana Keith: ? Monitored Anesthesia [...] well. ? Findings: ? The examined esophagus had the expected stricture at ? 25 cm that did not allow passage of the endoscope. ? The stricture was dilated using the 12-16-09 and ? 02-18-12 balloons with a prominent rent following ? dilation. ? Moderate Sedation: ? Not applicable - See Anesthesia documentation Impression: ?- Continued dilation of peptic ? stricture to 12 mm Recommendation: ?- Repeat exam in two weeks ? Attending Participation: ? I personally performed the entire procedure. ? ___ David Dejesus MD 04/30/2023 3:50:27 PM This report has been signed electronically. Number of Addenda: 0 Note Initiated On: 04/30/2023 3:14 PM PROVATION 04/30/2023 3:14 PM EST Ana Gillespie APRN GENERAL SURGICAL ORD ERABLES PROVATION * POCT Glucose (04/30/2023 2:09 PM EST) POC Glucose 75 65 - 199 mg/dL [facility] Comment: Supplemental ranges: <140 mg/dL before meals <180 mg/dL all other times of the day Blood 04/30/2023 2:09 PM EST 04/30/2023 2:09 PM EST David Dejesus MD POINT OF CARE TEST ORDERABLES Performing Organization Address City/[facility]/ZIP Co de Phone Number [facility] [place] [address] documented in this encounter Visit Diagnoses Diagnosis Peptic stricture of esophagus Stricture and stenosis of esophagus documented in this encounter Administered Medications Inactive Administered Medications - up to 3 most recent administrations Medication Order MAR Action Action Date Dose Rate Site lactated ringers infusion 100 mL/hr, Intravenous, CONTINUOUS, Starting on Wed04/30/23 at 1445, Until Wed04/30/23 at 1631, Endoscopy (Day of Procedure) New Bag 04/30/2023 2:45 PM EST 100 mL/hr 100 mL/hr documented in this encounter Active and Recently Administered Medications Times are shown in EST. Continuous Medication Order 04/28/2023 04/29/2023 04/30/2023 lactated ringers infusion (CANCELED) 100 mL/hr, Intravenous, CONTINUOUS, Starting on Wed04/30/23 at 1445, Until Wed04/30/23 at 1631, Endoscopy (Day of Procedure) 1445 (New Bag - Prov ider: Phyllis Angel RN) documented in this encounter Care Teams Transitional Studies Instructor Relationship Specialty Start Date End Date Ana Gillespie APRN [address] [place] [address] PCP - General Family Medicine 02/03/19 documented as of this encounter
--- OUTSIDE RECORDS SUMMARY | 2023-12-03 14:55 | XMS_ITS | Encounter Summary ---
Author Organization [facility] [place] [address] Care Team Providers Care Sponge Clipper Name Role Phone Ana Gillespie APRN Primary Care Provider [phone] Encounter Details Date Type Department Care Team (Late st Contact Info) Description 03/16/2023 1:02 PM EST Anesthesia [place] [id number] Rio Aceves MD [facility] [place] [address] Beti Cisneros CRNA [facility] [place] [address] Anesthesia Record Procedure Summary Procedure Name Responsible Anesthesiologist Anesthesia Start Time Anesthesia Stop Time EGD,WITH DILATION ESOPHAGUS WITH BALLOON,< 30 MM (WRVU 2.67) (Trunk) Rio Aceves MD 03/16/23 1302 03/16/23 1343 Events Date Time Event Comment 03/16/2023 1204 1301 AN Verify 1302 Start 1302 An Start Data 1309 An Induction 1311 An Intubation 1311 Anesthesia Ready 1335 Extubation/LMA Out 1343 an stop data 1343 Recovery or ICU Handoff Sayra ent care was transferred to the destination unit staff after review of the patient's medical history, current anesthetic/surgical status and plan, according to the Provider Handoff Checklist. 1343 Stop Meds Name Total IV Lidocaine 50 mg Propofol 140 mg Succinylcholine 80 mg Ondansetron 4 mg Lactated Ringers 600 mL * Agents Name O2 * Blood No blood administrations on file. Lines, Drains, and Airways Type Details Placement Removal Enterostomy Tube 03/10/23; 1618; gastrostomy tube with balloon (16F); LUQ (left upper quadrant); feeding; MD Trish Wallace-Tube exchange 16Fr. 07/09/23, 09/17/23 exchanged with 16fr by ROSLYN Cooper, 10/14/23 Tube exchange 16 fr, MD Hart 03/10/23 1618 by Sergey Jordan RN PIV 03/16/23; 1221; [id number] catheter system; 22 gauge; metacarpal vein (top of hand), right; chavo; 03/16/23; 1433 03/16/23 1221 by Tegan Caballero RN 03/16/23 1433 by Mary Peace RN ETT Mask Ventilation: No t Attempted (0); ETT Type: Cuffed, Oral; ETT Size: 7 mm; Mac Blade: 3; Notes: Asleep, Pre-O2, RSI, Cricoid Pressure, Stylette; Attempts: 1; Laryngoscopy Grade: 1; Secured at Teeth: 21 cm; Inserted by: BLAYNE Cisneros; Removal Date: 03/16/23; Removal Time: 1335 03/16/23 1309 by Beti Cisneros CRNA 03/16/23 1335 by Beti Cisneros CRNA documented in this encounter Social History [...] OR Notes * Anesthesia Postprocedure Evaluation - Rio Aceves MD - 03/16/2023 3:06 PM EST Department of Anesthesiology Post-procedure Note Patient: Jennifer Irving Procedure Summary Date: 03/16/23 Room / Location: [facility] ENDO 2 / [facility] ENDOSCOPY Anesthesia Start: 1302 Anesthesia Stop: 1343 Procedure: EGD,WITH DILATION ESOPHAGUS WITH BALLOON,< 30 MM (WRVU 2.67) (Trunk) Diagnosis: Peptic stricture of esophagus (stricture dilation) Surgeons: David Dejesus MD Responsible Provider: Rio Aceves MD Anesthesia Type: general ASA Status: 3 All Anesthesia Providers: Anesthesiologist: Rio Aceves MD TAPE MACHINE TAILER: Beti Cisneros CRNA Vitals Value Taken Time BP 110/60 03/16/23 1420 Temp Pulse Resp 18 03/16/23 1420 SpO2 96 % 03/16/23 1423 Pain Level 0 03/16/23 1420 Vitals shown include unfiled device data. Patient Location: PACU/[facility] Level of Consciousness: Awake and Alert Pain Management: Satisfactory Analgesia PONV: None Cardiovascular Status: Hemodynamically Stable and At Baseline Respiratory Status: Supplemental O2 (NC or FM) and Stable Respiratory Status Postoperative Fluid Status: Intravascular EUvolemia Possible Anesthetic Complications: NONE apparent at time of evaluation Final Primary Anesthesia Type: General (The anesthetic type performed was the same as planned.) Comments: * Anesthesia Preprocedure Evaluation - Rio Aceves MD - 03/16/2023 12:02 PM EST Pre-Anesthesia Evaluation for: Jennifer Irving a 62 y.o. female. Procedure(s): EGD, UPPER GI ENDOSCOPY (WRU 2.09) Patient Active Problem List Diagnosis Date [...] IR G-Tube Check/Change 11/27/2022 Hang Cooper PA [facility] INTERVENTIONL RAD ??? IR G-TUBE CHECK/CHANGE 03/10/2023 IR G-Tube Check/Change 03/10/2023 Geronimo Chambers, DO [facility] INTERVENTIONL RAD ??? IR G-TUBE PLACEMENT 09/11/2022 IR G-Tube Placement 09/11/2022 Moustapha Hart MD [facility] INTERVENTIONL RAD ??? IR SUTURE RELEASE 09/25/2022 IR Suture Release 09/25/2022 Yoselin Ghosh, ROSLYN [facility] INTERVENTIONL RAD ??? PERCUTANEOUS GASTROSTOMY N/A 09/11/2022 PERCUTANEOUS GASTROSTOMY performed by Aiden Flores MD at [facility] CATY ??? PRO COLONOSCOPY, BIOPSY N/A 03/20/2016 COLONOSCOPY FLEXIBLE, WITH BX performed by David Dejesus MD at [facility] ENDOSCOPY ??? PRO COLONOSCOPY, DIAGNOSTIC N/A 03/01/2020 COLONOSCOPY, DIAGNOSTIC performed by David Dejesus MD at [facility] ENDOSCOPY ??? PRO ENDOSCOPIC US EXAM, ESOPH N/A 03/31/2022 UPPER EUS- ENDOSCOPIC ULTRASOUND performed by David Dejesus MD at [facility] ENDOSCOPY ??? PRO UP GI ENDOSCOPY, BALL DIL, 30MM N/A 12/24/2022 EGD,WITH DILATION ESOPHAGUS WITH BALLOON,< 30 MM (WRVU 2.67) performed by David Dejesus [facility] ENDOSCOPY ??? PRO UP GI ENDOSCOPY, BALL DIL, 30MM N/A 01/12/2023 EGD,WITH DILATION ESOPHAGUS WITH BALLOON,< 30 MM (WRVU 2.67) performed by David Dejesus [facility] ENDOSCOPY ??? PRO UP GI ENDOSCOPY, BALL DIL, 30MM N/A 02/26/2023 EGD,WITH DILATION ESOPHAGUS WITH BALLOON,< 30 MM (WRVU 2.67) performed by David Dejesus [facility] ENDOSCOPY ??? PRO UPPER GI ENDOSCOPY, BIOPSY N/A 04/03/2014 UPPER GASTROINTESTINAL ENDOSCOPY,WITH BIOPSY SINGLE OR MULTIPLE performed by David Dejesus [facility] ENDOSCOPY ??? PRO UPPER GI ENDOSCOPY, BIOPSY N/A 03/20/2016 EGD WITH BIOPSY performed by David Dejesus MD at [facility] ENDOSCOPY ??? PRO UPPER GI ENDOSCOPY, BIOPSY N/A 11/22/2018 EGD WITH BIOPSY (WRVU 2.49) performed by David Dejesus MD at [facility] ENDOSCOPY ??? PRO UPPER GI ENDOSCOPY, BIOPSY N/A 03/01/2020 UPPER GASTROINTESTINAL ENDOSCOPY,WITH BIOPSY SINGLE OR MULTIPLE (WRVU 2.49) performed by David Dejesus MD at [facility] ENDOSCOPY ??? PRO UPPER GI ENDOSCOPY, BIOPSY N/A 09/23/2021 EGD WITH BIOPSY (WRVU 2.49) performed by David Dejesus MD at [facility] ENDOSCOPY ??? PRO UPPER GI ENDOSCOPY, BIOPSY N/A 03/31/2022 EGD WITH BIOPSY (WRVU 2.49) performed by David Dejesus MD at [facility] ENDOSCOPY ??? PRO UPPER GI ENDOSCOPY, BIOPSY N/A 07/03/2022 EGD WITH BIOPSY (WRVU 2.49) performed by David Dejesus MD at [facility] ENDOSCOPY ??? PRO UPPER GI ENDOSCOPY, DIAGNOSTIC N/A 04/03/2014 EGD, UPPER GI ENDOSCOPY performed by David Dejesus MD at [facility] ENDOSCOPY ??? PRO UPPER GI ENDOSCOPY, DIAGNOSTIC N/A 03/01/2020 EGD, UPPER GI ENDOSCOPY performed by David Dejesus MD at [facility] ENDOSCOPY ??? PRO UPPER GI ENDOSCOPY, DIAGNOSTIC N/A 09/09/2022 EGD, UPPER GI ENDOSCOPY (WRVU 2.09) performed by Ayo Russ MD at [facility] MAIN OR Social History Tobacco Use ??? [...] >3 FB Neck ROM: full Cardiovascular Assessment: Rate: normal Pulmonary Assessment: unlabored breathing Dental Assessment: Misc Assessment: Last Filed Perioperative [...] with patient and spouse. Plan discussed with TAPE MACHINE TAILER and attending. Anesthesia Screening documented in this encounter Plan of Treatment Upcoming Encounters Date Type Department Care Team (Late st Contact Info) Description 12/07/2023 1:00 PM EDT Appointment Pulmonology at [place] [phone] 12/07/2023 2:00 PM EDT Office [place] [address] Geronimo Mojica MD [facility] [place] [address] 12/27/2023 11:30 AM EDT [place] [address] Noe Cuenca MD [facility] [place] [address] Scheduled Procedures Name Priority Associated Diagnoses Date/Ti me EGD, UPPER GI ENDOSCOPY (WRV U 2.09) Peptic stricture of esophagus documented as of this encounter Visit Diagnoses Not on filedocumented in this encounter Administered Medications Inactive Administered Medications - up to 3 most recent administrations Medication Order MAR Action Action Date Dose Rate Site lactated ringers infusion Intravenous, CONTINUOUS PRN, Starting on Wed03/16/23 at 1301, Until Wed03/16/23 at 1343, Anesthesia Intra-op New Bag 03/16/2023 1:01 PM EST lidocaine (pf) (Xylocaine) (20 mg/mL) 2% injection syringe Intravenous, PRN, Starting on Wed03/16/23 at 1309, Until Wed03/16/23 at 1343, Anesthesia Intra-op, Routine Given 03/16/2023 1:09 PM EST 50 mg ondansetron (pf) (Zofran) (2 mg/mL) injection Intravenous, PRN, Starting on Wed03/16/23 at 1323, Until Wed03/16/23 at 1343, Anesthesia Intra-op, Routine Given 03/16/2023 1:23 PM EST 4 mg propofoL (Diprivan) 10 mg/mL bolus injection (Anesthesia) Intravenous, PRN, Starting on Wed03/16/23 at 1309, Until Wed03/16/23 at 1343, Anesthesia Intra-op Given 03/16/2023 1:09 PM EST 140 mg succinylcholine (Anectine;Quelicin) (20 mg/mL) injection Intravenous, PRN, Starting on Wed03/16/23 at 1310, Until Wed03/16/23 at 1343, Anesthesia Intra-op, Routine Given 03/16/2023 1:10 PM EST 80 mg documented in this encounter Care Teams Sponge Clipper Relationship Specialty Start Date End Date Ana Gillespie APRN [address] [place] [address] PCP - General Family Medicine 02/03/19 documented as of this encounter
--- OUTSIDE RECORDS SUMMARY | 2023-12-03 14:55 | XMS_ITS | Encounter Summary ---
Author Organization [facility] [place] [address] Care Team Providers Care Runstitching Machine Operator Name Role Phone Ana Gillespie APRN Primary Care Provider [phone] Encounter Details Date Type Department Care Team (Late Contact Info) Description 03/16/2023 Orders Only [place] [phone] David Dejesus MD [facility] [place] [address] Peptic stricture of esophagus Social History Tobacco [...] 12/07/2023 1:00 PM EDT Appointment [place] [phone] 12/07/2023 2:00 PM EDT Office Visit [place] [phone] Geronimo Mojica MD [facility] [place] [address] 12/27/2023 11:30 AM EDT Office [place] [phone] Noe Cuenca MD [facility] [place] [address] Scheduled Orders Name Type Priority Associated Diagnoses Orde r Schedule ENDOSCOPY CASE REQUEST: EGD, UPPER GI ENDOSCOPY (WRVU 2.09) Procedures Routine Peptic stricture of esophagus Ordered: 03/16/2023 Scheduled Procedures Name Priority Associated Diagnoses Date/Ti me EGD, UPPER GI ENDOSCOPY (WRV U 2.09) Peptic stricture of esophagus documented as of this encounter Visit Diagnoses Diagnosis Peptic stricture of esophagus Stricture and stenosis of esophagus documented in this encounter Care Teams Runstitching Machine Operator Relationship Specialty Start Date End Date Ana Gillespie APRN [address] [place] [address] PCP - General Family Medicine 02/03/19 documented as of this encounter
--- OUTSIDE RECORDS SUMMARY | 2023-12-03 14:55 | XMS_ITS | Encounter Summary ---
[place] [address] Care Team Providers Care Senior Consulting Manager Name Role Phone Ana Gillespie VAUGHN Primary Care Provider [phone] Reason for Referral * Diagnostic Test (Routine) - Closed Specialty Diagnoses / Procedures Referred By Contjovani t Referred To Contact Radiology Diagnoses Neuroleptic-induced parkinsonism Procedures IR G-Tube Check/Change BaltimoreFannie merirtt PA [facility] [place] [address] [facility] [place] [place] [address] Referral ID Status Reason Start Date Expiration Date V isits Requested Visits Authorized [id number] Closed Specialty Service Requested 04/05/2023 10/03/2024 1 1 Reason for Visit * Diagnostic Test (Routine) - Closed Specialty Diagnoses / Procedures Referred By Contjovani t Referred To Contact Radiology Diagnoses Neuroleptic-induced parkinsonism Procedures IR G-Tube Check/Change BaltimoreFannie merritt PA [facility] [place] [address] [facility] [place] [place] [address] Referral ID Status Reason Start Date Expiration Date V isits Requested Visits Authorized [id number] Closed Specialty Service Requested 04/05/2023 10/03/2024 1 1 Encounter Details Date Type Department Care Team (Latest Contact Info) Description 04/06/2023 1:11 PM EST - 04/06/2023 11:59 PM EST Hospital Encounter Radiology at [facility] [address] Moustapha Hart MD [facility] [place] [address] Neuroleptic-induced parkinsonism Discharge Disposition: Home Social History [...] Sign Reading Time Taken Comments Blood Pressure 155/67 04/06/2023 4:34 PM EST Pulse 62 04/06/2023 4:34 PM EST Temperature 36.1 ??C (96.9 ??F) 04/06/2023 4:34 PM ES T Respiratory Rate 16 04/06/2023 4:34 PM EST Oxygen Saturation 99% 04/06/2023 4:34 PM EST Inhaled Oxygen Concentration - - Weight - - Height - - Body Mass Index - - documented in this encounter Discharge Instructions * Discharge Instructions* Meli Martin RN - 04/06/2023 4:16 PM EST Discharge Instructions for Feeding Tube [...] If you have the NON Low profile HERBIE-FAM feeding tube the retention balloon (side port labeled ???BAL?? ) should be checked every 1-2 weeks. It should contain between 5 cc of water. If it is low this should be replaced. Do not put medications or flush through this port. * If you have a low profile ???ESTRELLITA-FAM?? feeding tube, the retention balloon (side port [...] or its attachments. INTERVENTIONAL RADIOLOGY PHONE NUMBERS [phone] If you have a NON Low profile feeding tube, call with any questions or concerns. During regular office hours call: [phone]. If it is after regular office hours, weekends or holidays, please call [phone] and ask to speak to the Vice Provost gas controller for Interventional Radiology. If you have a low profile ???ESTRELLITA-FAM?? feeding tube, please call Dejah Stauffer RN for any issues: [phone]. Revised 02/23/19 documented in this encounter Medications [...] meter kit. 1 each 0 12/14/2014 Insulin [place], Disposable, (BD INSULIN PEN NEEDLE UF MINI) [...] as of this encounter Progress Notes * Meli Martin RN - 04/05/2023 1:35 PM EST ANGIO NURSING DATABASE Name: Jennifer Irving Date of : 1960 AGE: 62 y.o. Address: [address] [address] (home) Mobile: Telephone Information: Referring Provider: Fannie Conde REASON FOR VISIT: Order Questions Answers Where will study be performed? [facility] Radiology [120] Is the patient on anticoagulant / antiplatelet therapy ? No Reason for exam and clinical history: 62F with G-tube (last exchanged 03/10), 16- Fr dkj-fop-hnhgfkt (ESTRELLITA). G-tube locked up overnight 04/04 - [facility] pulled the g tube and the balloon exploded in her. They put a barba cath in Planned procedure: Gastrostomy tube exchange Labs to be performed day of procedure: No labs Sedation: No Sedation Prophylactic antibiotic : None Contrast: Omnipaque Additional medications for procedure: Lidocaine; Lido jelly Planned access site: G-tube Position: [...] Exchange local 04/06/23 G-Tube Exchange Local Only 1604 to procedure room 2 via stretcher. Onto table supine. All monitors, O2, safety strap in place.Meds per protocol. Laboratory Results: Lab Results Component Value Date INR 2.0 08/15/2022 Lab Results Component Value Date CREATININE 0.62 (L) 09/25/2022 Lab Results Component Value Date K 4.6 09/25/2022 Lab Results Component Value Date PLATELET 222 09/23/2022 documented in this encounter H&P Notes * Fannie Conde PA - 04/05/2023 11:37 AM EST Images from the original note were not included. Interventional Radiology Focused Pre-procedure H&P: PCP: Ana Gillespie APRN Referring Provider: Fannie Conde Planned procedure: Gastrostomy tube exchange Procedure indication: G tube dislodged, durable enteric access for nutrition IR workflow: Procedure request received through Interventional Radiology eDH order queue. Order Questions Answers Where will study be performed? [facility] Radiology [120] Is the patient on anticoagulant / antiplatelet therapy ? No Reason for exam and clinical history: 62F with G-tube (last exchanged 03/10), 16- Fr qaa-jss-oceiikp (ESTRELLITA). G-tube locked up overnight 04/04 - [facility] pulled the g tube and the balloon exploded in her. They put a barba cath in History of Present Illness: Per chart review, Jennifer Irving is a 62 y.o. female presenting to Interventional Radiology to undergo G-tube check/exchange in the setting of dislodged catheter. Per report, patient presented to [facility] and they pulled the catheter and the balloon exploded. They wereable to insert a barba to preserve the tract. Last seen in IR on 03/10 for which a 16Fr non-low profile ESTRELLITA cathter was exchanged. Past medical history significant for Farrell's esophagus with stricturing and dysphagia requiring 100% nutrition via gastrostomy catheter. Additional pertinent history of type 2 diabetes, and bipolardisorder. Remainder of patient's medical and surgical history, allergies, medications, and social/family history obtained below as previously outlined in patient's medical record. IR History: Date/Procedure Meds Given/Comments 09/11/22 Gtube placement ANES 11/27/22 Gtube exchange Local 03-10-23 G-Tube Exchange local Anticoagulation/Antiplatelet: None listed Labs: Lab Results Component Value Date HGB 11.5 (L) 09/23/2022 HCT 38.4 09/23/2022 WBC 6.8 09/23/2022 PLATELET 222 09/23/2022 INR 2.0 08/15/2022 BUN 32 (H) 09/25/2022 CREATININE 0.62 (L) 09/25/2022 ALBUMIN 2.5 (L) 08/20/2022 BILIDIR 0.1 08/20/2022 BILITOT <0.2 (L) 08/20/2022 AST 39 (H) 08/20/2022 ALT 20 08/20/2022 ALKPHOS 213 (H) 08/20/2022 Allergies: Meperidine hcl and Metformin Imagin03/10/23 Assessment: 62 y.o. female with dislodged G-tube presenting to Interventional Radiology for G-tube check/exchange. Plan Planned procedure: Gastrostomy tube exchange Labs to be performed day of procedure: No labs Sedation: No Sedation Prophylactic antibiotic : None Contrast: Omnipaque Additional medications for procedure: Lidocaine, Lido jelly Position: Supine Consent: Scanned Medications [...] glucose meter kit. 1 each 0 Insulin [place], Disposable, (BD INSULIN PEN NEEDLE UF MINI) 31 x 3/16 Needle 1 [place] [facility] [place]; Combo Route) route 3 times daily as needed. 100 each 11 No current facility-administered medications on file prior to encounter. Past Medical/Surgical history: Patient Active Problem List [...] Cooper PA [facility] INTERVENTIONL RAD IR G-TUBE CHECK/CHANGE 03/10/2023 IR G-Tube Check/Change 03/10/2023 Geronimo Chambers DO [facility] INTERVENTIONL RAD IR G-TUBE PLACEMENT 09/11/2022 IR G-Tube Placement 09/11/2022 Moustapha Hart MD [facility] INTERVENTIONL RAD IR SUTURE RELEASE 09/25/2022 IR Suture Release 09/25/2022 Yoselin Ghosh PA [facility] INTERVENTIONL RAD PERCUTANEOUS GASTROSTOMY N/A 09/11/2022 PERCUTANEOUS GASTROSTOMY performed by Aiden Flores MD at [facility] CATY PRO COLONOSCOPY, BIOPSY N/A 03/20/2016 COLONOSCOPY FLEXIBLE, WITH BX performed by David Dejesus MD at [facility] ENDOSCOPY PRO COLONOSCOPY, DIAGNOSTIC N/A 03/01/2020 COLONOSCOPY, DIAGNOSTIC performed by David Dejesus MD at [facility] ENDOSCOPY PRO ENDOSCOPIC US EXAM, ESOPH N/A 03/31/2022 UPPER EUS- ENDOSCOPIC ULTRASOUND performed by David Dejesus MD at [facility] ENDOSCOPY PRO UP GI ENDOSCOPY, BALL DIL, 30MM N/A 12/24/2022 EGD,WITH DILATION ESOPHAGUS WITH BALLOON,< 30 MM (WRVU 2.67) performed by David Dejesus MDat [facility] ENDOSCOPY PRO UP GI ENDOSCOPY, BALL DIL, 30MM N/A 01/12/2023 EGD,WITH DILATION ESOPHAGUS WITH BALLOON,< 30 MM (WRVU 2.67) performed by David Dejesus MDat [facility] ENDOSCOPY PRO UP GI ENDOSCOPY, BALL DIL, 30MM N/A 02/26/2023 EGD,WITH DILATION ESOPHAGUS WITH BALLOON,< 30 MM (WRVU 2.67) performed by David Dejesus MDat [facility] ENDOSCOPY PRO UP GI ENDOSCOPY, BALL DIL, 30MM N/A 03/16/2023 EGD,WITH DILATION ESOPHAGUS WITH BALLOON,< 30 MM (WRVU 2.67) performed by David Dejesus [facility] ENDOSCOPY PRO UP GI ENDOSCOPY, BALL DIL, 30MM N/A 03/30/2023 EGD,WITH DILATION ESOPHAGUS WITH BALLOON,< 30 MM (WRVU 2.67) performed by David Dejesus [facility] ENDOSCOPY PRO UPPER GI ENDOSCOPY, BIOPSY N/A 04/03/2014 UPPER GASTROINTESTINAL ENDOSCOPY,WITH BIOPSY SINGLE OR MULTIPLE performed by David Dejesus [facility] ENDOSCOPY PRO UPPER GI ENDOSCOPY, BIOPSY N/A 03/20/2016 EGD WITH BIOPSY performed by David Dejesus MD at [facility] ENDOSCOPY PRO UPPER GI ENDOSCOPY, BIOPSY N/A 11/22/2018 EGD WITH BIOPSY (WRVU 2.49) performed by David Dejesus MD at [facility] ENDOSCOPY PRO UPPER GI ENDOSCOPY, BIOPSY N/A 03/01/2020 UPPER GASTROINTESTINAL ENDOSCOPY,WITH BIOPSY SINGLE OR MULTIPLE (WRVU 2.49) performed by David Dejesus MD at [facility] ENDOSCOPY PRO UPPER GI ENDOSCOPY, BIOPSY N/A 09/23/2021 EGD WITH BIOPSY (WRVU 2.49) performed by David Dejesus MD at [facility] ENDOSCOPY PRO UPPER GI ENDOSCOPY, BIOPSY N/A 03/31/2022 EGD WITH BIOPSY (WRVU 2.49) performed by David Dejesus MD at [facility] ENDOSCOPY PRO UPPER GI ENDOSCOPY, BIOPSY N/A 07/03/2022 EGD WITH BIOPSY (WRVU 2.49) performed by David Dejesus MD at [facility] ENDOSCOPY PRO UPPER GI ENDOSCOPY, DIAGNOSTIC N/A 04/03/2014 EGD, UPPER GI ENDOSCOPY performed by David Dejesus MD at [facility] ENDOSCOPY PRO UPPER GI ENDOSCOPY, DIAGNOSTIC N/A 03/01/2020 EGD, UPPER GI ENDOSCOPY performed by David Dejesus MD at [facility] ENDOSCOPY PRO UPPER GI ENDOSCOPY, DIAGNOSTIC N/A 09/09/2022 EGD, UPPER GI ENDOSCOPY (WRVU 2.09) performed by Ayo Russ MD at [facility] MAIN OR Social History and Habits: Social History Tobacco Use Smoking status: Former Years: 11 Types: Cigarettes Quit date: 02/26/2021 Years since quittin.1 Smokeless tobacco: Never Substance Use Topics Alcohol use: Not Currently Drug use: Never Significant Family History: No family history on file. Pertinent ROS: as per HPI Physical Exam: Pending (to be performed in IR the day of procedure) ASA: Pending (to be assessed in IR the day of procedure) Mallampati class: Pending (to be assessed in IR the day of procedure) 04/05/2023 Fannie Conde PA-C documented in this encounter Plan of Treatment Upcoming Encounters Date Type Department Care Team (Late st Contact Info) Description 12/07/2023 1:00 PM EDT [place] [address] 12/07/2023 2:00 PM EDT Office [place] [address] Geronimo Mojica MD [facility] [place] [address] 12/27/2023 11:30 AM EDT [place] [address] Noe Cuenca MD [facility] [place] [address] Scheduled Procedures Name Priority Associated Diagnoses Date/Ti me EGD, UPPER GI ENDOSCOPY (WRV U 2.09) Peptic stricture of esophagus documented as of this encounter Procedures Procedure Name Priority Date/Time Associated Diagnosis Comments IR G-TUBE CHECK/CHANGE Routine 04/06/2023 4:40 PM EST Neuroleptic-induced parkinsonism documented in this [...] was performed under fluoroscopic guidance. ??A pharmacy intake coordinator fluoroscopic image was obtained. ??Contrast was injected through the barba catheter and another fluoroscopic image was obtained. ??Through the catheter, an 0.035 stiff angled glide wire was advanced. ??The catheter was removed. ??Over the wire, a new 16-Fr nef-goy-ubrcxwz (ESTRELLITA) gastrostomy catheter was advanced. ??The retention balloon was inflated with 5 cc of sterile water. ??The gastrostomy was injected with contrast and repeat fluoroscopic image was obtained. ??A sterile dressing was applied. ?? Medications: 2% Lidocaine Jelly Topically Contrast: 10 cc Omnipaque 350, intra-enteric. Fluoroscopic Time: 0.2 minutes. Estimated Blood Loss: < 5 cc. Complications: ??No immediate. Findings: Placement of new 16-Fr bmg-lwb-bgwqyys (ESTRELLITA) catheter positioned within the stomach. ?? [...] mg/mL) solution 50 mL 50 mL, Other, ONCE PRN, 1 dose, Starting on Wed04/06/23 at 1646, Until Wed04/06/23 at 1646, Per Protocol, Warning Vesicant/Irritant Medication , Routine Given 04/06/2023 4:46 PM EST 5 mLs lidocaine (Glydo) 2 % gel 6 mL 6 mL, Topical (Top), EVERY 4 HOURS PRN, Starting on Wed04/06/23 at 1512, Until Wed04/06/23 at 1644, Pain, For use in Interventional Radiology (IR) only for procedure with direct provider supervision and verbal order., Angio/IR (Intra-Procedure), Routine Given 04/06/2023 4:15 PM EST 6 mLs documented in this encounter Care Teams Senior Consulting Manager Relationship Specialty Start Date End Date Ana Gillespie APRN [address] [place] [address] PCP - General Family Medicine 02/03/19 documented as of this encounter
--- OUTSIDE RECORDS SUMMARY | 2023-12-03 14:55 | XMS_ITS | Encounter Summary ---
Author Organization [facility] Address [facility] [place] [address] Care Team Providers Care Manager Services Name Role Phone Ana Gillespie VAUGHN Primary Care Provider [phone] Encounter Details Date Type Department Care Team (Latest Contact Info) Description 04/30/2023 1:29 PM EST - 04/30/2023 4:43 PM EST Hospital Encounter Gastroenterology at [facility] [place] [address] David Dejesus MD [facility] [place] [address] Discharge Disposition: Home Social History Tobacco Use [...] Sign Reading Time Taken Comments Blood Pressure 102/57 04/30/2023 4:20 PM EST Pulse 50 04/30/2023 2:08 PM EST Temperature 36.2 ??C (97.1 ??F) 04/30/2023 2:08 PM ES T Respiratory Rate 16 04/30/2023 2:08 PM EST Oxygen Saturation 97% 04/30/2023 4:20 PM EST Inhaled Oxygen Concentration - - Weight 65.3 kg (144 lb) 04/30/2023 2:08 PM EST Height - - Body Mass Index 28.12 03/30/2023 3:17 PM EST documented in this encounter Discharge Instructions * Discharge Instructions* Patenaude, Irene N, RN - 04/30/2023 4:01 PM EST Esophageal [...] the day after the procedure, use an rszl-cjw-qxjzgoe spray to numb your throat. Sucking on [...] occurs, please contact your Doctor. Please call [phone] before 8pm Mon-Fri with problems, questions or concerns. If you call after 8pm or on weekends, call the Hospital at [phone] and ask to speak to the Microarray Specialist adult secondary education instructor and the flaker operator will contact that person for you. When should you call for help? Call [phone] anytime you think you may need emergency [...] more? Visit our health information library at [email or web address] You can also view health information on [employer], your personal patient account. Log in or sign uptoday. Enter J014 in the search box to learn more about Esophageal Dilation: What to Expect at Home. Current as of: December 18, 2018Content Version: 12.4 ?? [id number] [employer]. Care instructions adapted under license by [facility]. If you have questions about a medical condition or this instruction, always ask your healthcare professional. [employer] disclaims any warranty or liability for your [...] strips. 300 each 3 12/14/2014 Blood-Glucose Meter (MaginaticsTOUCH ULTRA2) KitIndications:Type 2 diabetes mellitus, uncontrolled by Other route. 1 = one blood glucose meter kit. 1 each 0 12/14/2014 Insulin [place], Disposable, (BD INSULIN PEN NEEDLE UF MINI) 31 x 16 NeedleIndications:Di abetes mellitus type 2, uncontrolled 1 [...] 12/07/2023 1:00 PM EDT Appointment [place] [address] 12/07/2023 2:00 PM EDT Office [place] [address] Geronimo Mojica MD [facility] [place] [address] 12/27/2023 11:30 AM EDT Office [place] [address] Noe Cuenca MD [facility] [place] [address] Scheduled Procedures Name Priority Associated Diagnoses Date/Ti me EGD, UPPER GI ENDOSCOPY (WRV U 2.09) Peptic stricture of esophagus documented as of this encounter Procedures Procedure Name Priority Date/Time Associated Diagnosis Comments POCT GLUCOSE Routine 04/30/2023 4:13 PM EST Up Gi Endoscopy, Ball Dil, 30Mm (63937) 04/30/2023 3:25 PM EST Peptic stricture of esophagus UPPER GI ENDOSCOPY Routine 04/30/2023 3: 14 PM EST POCT GLUCOSE Routine 04/30/2023 2:09 PM EST documented in this encounter Results * POCT Glucose (04/30/2023 4:13 PM EST) POC Glucose 81 65 - 199 mg/dL [facility] Comment: Supplemental ranges: <140 mg/dL before meals <180 mg/dL all other times of the day Blood 04/30/2023 4:13 PM EST 04/30/2023 4:13 PM EST David Dejesus MD POINT OF CARE TEST ORDERABLES Performing Organization Address City/State/[facility] Co de Phone Number [facility] [place] [address] * UPPER GI ENDOSCOPY (04/30/2023 3:14 PM EST) UPPER GI ENDOSCOPY [facility] Endoscopy Procedure Date: 04/30/2023 3:14 PM ? Patient Name: Jennifer Irving ? Date of : 1960 ? Age: 62 ? Order #: [id number] ? Instrument Name: [id number] ? Procedure: ? Upper GI endoscopy Indications: [...] POC Glucose 75 65 - 199 mg/dL [facility] Comment: Supplemental ranges: <140 mg/dL before meals <180 mg/dL all other times of the day Blood 04/30/2023 2:09 PM EST 04/30/2023 2:09 PM EST David Dejesus MD POINT OF CARE TEST ORDERABLES [facility] [place] [address] documented in this encounter Visit Diagnoses Not [...] RN) documented in this encounter Care Teams Manager Services Relationship Specialty Start Date End Date Ana Gillespie APRN [address] [place] [address] PCP - General Family Medicine 02/03/19 documented as of this encounter
--- OUTSIDE RECORDS SUMMARY | 2023-12-03 14:55 | XMS_ITS | Encounter Summary ---
Author Organization [facility] Address [facility] [place] [address] Care Team Providers Care Sprinkler Installer Name Role Phone Ana Gillespie VAUGHN Primary Care Provider [phone] Encounter Details Date Type Department Care Team (Late st Contact Info) Description 03/16/2023 1:00 PM EST - 03/16/2023 1:30 PM EST Surgery Gastroenterology at [facility] [place] [address] David Dejesus MD [facility] [place] [address] EGD,WITH DILATION ESOPHAGUS WITH BALLOON,< 30 MM [...] Sign Reading Time Taken Comments Blood Pressure - - Pulse 51 03/16/2023 11:49 AM EST Temperature 36.7 ??C (98 ??F) 03/16/2023 11: 49 AM EST Respiratory Rate 18 03/16/2023 11:4 9 AM EST Oxygen Saturation 98% 03/16/2023 11: 49 AM EST Inhaled Oxygen Concentration - - Weight 65.2 kg (143 lb 11.2 oz) 023 11:49 AM EST Height - - Body Mass Index 28.06 01/15/2023 11:07 AM EDT documented in this encounter Discharge Instructions * Discharge Instructions* Irene Mccarthy, RN - 03/16/2023 1:40 PM EST Esophageal [...] the day after the procedure, use an xvyb-fgm-qxyekqq spray to numb your throat. Sucking on [...] occurs, please contact your Doctor. Please call [phone] before 8pm Mon-Fri with problems, questions or concerns. If you call after 8pm or on weekends, call the Hospital at [phone] and ask to speak to the Chin Strap Maker metal fabrication supervisor and the pressure test operator will contact that person for you. When should you call for help? Call [phone] anytime you think you may need emergency [...] more? Visit our health information library at [email or web address] You can also view health information on [employer], your personal patient account. Log in or sign uptoday. Enter J014 in the search box to learn more about Esophageal Dilation: What to Expect at Home. Current as of: December 18, 2018Content Version: 12.4 ?? [id number] [employer]. Care instructions adapted under license by [facility]. If you have questions about a medical condition or this instruction, always ask your healthcare professional. [employer] disclaims any warranty or liability for your [...] meter kit. 1 each 0 12/14/2014 Insulin [place], Disposable, (BD INSULIN PEN NEEDLE UF MINI) [...] H&P Notes * Parminder Mao MD - 03/16/2023 12:08 PM EST Gastroenterology [...] 12/07/2023 1:00 PM EDT Appointment [place] [phone] 12/07/2023 2:00 PM EDT Office [place] [phone] Geronimo Mojica MD [facility] [place] [address] 12/27/2023 11:30 AM EDT Office [place] [address] Noe Cuenca MD [facility] [place] [address] Scheduled Procedures Name Priority Associated Diagnoses Date/Ti me EGD, UPPER GI ENDOSCOPY (WRV U 2.09) Peptic stricture of esophagus documented as of this encounter Procedures Procedure Name Priority Date/Time Associated Diagnosis Comments Up Gi Endoscopy, Rick Chavez, 30Mm (19951) 03/16/2023 1:03 PM EST Peptic stricture of esophagus UPPER GI ENDOSCOPY Routine 03/16/2023 12 :23 PM EST POCT GLUCOSE Routine 03/16/2023 12:05 PM EST documented in this encounter Results * UPPER GI ENDOSCOPY (03/16/2023 12:23 PM EST) UPPER GI ENDOSCOPY [facility] Endoscopy Procedure Date: 03/16/2023 12:23 PM ? Patient Name: Jennifer Irving ? N: [id number] ? Date of : 1960 ? Age: 62 ? Order #: [id number] ? Instrument Name: [id number] ? Procedure: ? Upper GI endoscopy Providers: [...] 03/16/2023 12:2 3 PM EST Ana Gillespie STATE ASSESSED PROPERTIES DIRECTOR GENERAL SURGICAL ORD ERABLES PROVATION * POCT Glucose (03/16/2023 12:05 PM EST) POC Glucose 104 65 - 199 mg/dL [facility] Comment: Supplemental ranges: <140 mg/dL before meals <180 mg/dL all other times of the day Blood 03/16/2023 12:0 5 PM EST 03/16/2023 12:05 PM EST David Dejesus MD POINT OF CARE TEST [place] [address] documented in this encounter Visit Diagnoses Diagnosis [...] RN) documented in this encounter Care Teams Sprinkler Installer Relationship Specialty Start Date End Date Ana Gillespie APRN [address] [place] [address] PCP - General Family Medicine 02/03/19 documented as of this encounter
--- OUTSIDE RECORDS SUMMARY | 2023-12-03 14:55 | XMS_ITS | Encounter Summary ---
Author Organization [facility] [place] [address] Care Team Providers Care Senior Data Modeler Name Role Phone Ana Gillespie AIX ARCHITECT Primary Care Provider [phone] Encounter Details Date Type Department Care Team (Late st Contact Info) Description 05/18/2023 Telephone [place] [address] Chiquita James, RN Social History [...] Telephone Encounter - Chiquita James, RN - 05/18/2023 9:49 AM EST Jennifer's Campos calls to cancel her Endoscopy procedure today as there is bad weather coming. He would like a call back from scheduling to re-schedule this. Forwarded documented in this encounter Plan of Treatment Upcoming Encounters Date Type Department Care Team (Late st Contact Info) Description 12/07/2023 1:00 PM EDT [place] [address] 12/07/2023 2:00 PM EDT Office [place] [address] Geronimo Mojica MD [facility] [address] 12/27/2023 11:30 AM EDT [place] [phone] Noe Cuenca MD [facility] [place] [address] Scheduled Procedures Name Priority Associated Diagnoses Date/Ti me EGD, UPPER GI ENDOSCOPY (WRV U 2.09) Peptic stricture of esophagus documented as of this encounter Visit Diagnoses Not on filedocumented in this encounter Care Teams Senior Data Modeler Relationship Specialty Start Date End Date Ana Gillespie APRN [address] [place] [address] PCP - General Family Medicine 02/03/19 documented as of this encounter
--- OUTSIDE RECORDS SUMMARY | 2023-12-03 14:55 | XMS_ITS | Encounter Summary ---
Author Organization [facility] [place] [address] Care Team Providers Care Grader Marker Name Role Phone Ana Gillespie APRN Primary Care Provider [phone] Encounter Details Date Type Department Care Team (Latest Contact Info) Description 04/12/2023 9:20 AM EST TH Visit (TeleHealth) Cardiology at [address] [place] [address] Milagros Hernandez MD [facility] [address] Stress-induced cardiomyopathy Social History Tobacco Use Types [...] on file documented as of this encounter Patient Instructions * Patient Instructions* Milagros Hernandez MD - 04/12/2023 9:20 AM EST Continue current medications Come back in see me in person in about August Call with questions or concerns documented in this encounter Progress Notes * Milagros Hernandez MD - 04/12/2023 9:20 AM EST Images from the original note were not included. [facility] 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 1 each 0 Insulin [place], Disposable, (BD INSULIN PEN NEEDLE UF MINI) 31 x 3/16 Needle 1 Device by [facility] [place]Non-Drug; Combo Route) route 3 times daily as needed. 100 each 11 No current facility-administered medications for this visit. Subjective: Patient ID: Jennifer Irving is a 62 y.o. female [...] esophagus and esophageal stricture. She established with ct in Cardiology clinic in Jan 2023 and presents today for planned follow up. This visit is a Telehealth Visit as the patient was unable to safely make the visit in person due to inclement weather. The patient was located in [place] at the time of the visit. We connected by telephone at 9:20am and disconnected the call at 9:34am. HPI Ms. Irving had a complicated hospitalization in August of this year after she developed a stresscardiomyopathy following operative fixation of a left femoral neck fracture. She was found obtundedat home by her with hypoxia, evidence of aspiration pneumonia bilaterally on CT scan and with a reduced LVEF and shock, felt multifactorial cardiogenic and distributive. She was initially treated on the Cardiology service for her shock and pneumonia, was optimized in terms of GDMT for her HFrEF and underwent CT coronaries which excluded an ischemic cause [...] pneumonia. From the cardiac perspective, GDMT at discharge included metoprolol succinate 50mg po qd, Entresto 24-26mg po bid, spironolactone 12.5mg poqd, empagliflozin 10mg po qd. She was also discharged on atorvastatin 80mg po qd for primary prevention in the setting of DM2 (CCS [address] Since discharge she has undergone serial dilationof an esophageal stricture (most recently on 01/12) and is closely following in for this, planningto continue this therapy. She also underwent repeat TTE in November which showed recovery of her LVEF. She established with me in January in clinic and was doing well from the perspective of her heart,although she and her reported that her L femoral hip repair had failed due to poor vascularsupply and she was planned for a replacement. She had some issues with lower blood pressures and via phone communication with discontinued her spironolactone with plans for continued monitoring. She underwent additional esophageal stricture dilations and unfortunately was admitted to [facility] at the end of February shortly after an EGD with a new pneumonia, at which point multiple changes to her cardiac medications were made which I did not agree with (spironolactone resumed, metoprolol succinate switched to tartrate because the provider felt giving succinate was too much all at once when crushedfor the GTube. I asked her to stop spironolactone again due to lower blood pressures, and transition back to metoprolol succinate, the timing of effect of which is not at all impacted by crushing the pills. Since that time she has continued serial stricture dilations by EGD and also underwent GTube exchange due to dislodgment at the end of March. She reports she is doing great; feels well. Rogelio (her ) did not join us for the call. She has had a bit of a bumpy road but feels back to almost normal and feels like she is making progress. She got her hip replaced as planned and this was uncomplicated. She had some pain after but this rapidly improved. Unfortunately she was probably exposed to COVID around the time of her surgery as she was briefly readmitted for this shortly after but only needed to stay 2 days and her breathing rapidly returned to normal. Then in February she developed a pneumonia in what she described as herleft lower lung and received antibiotics, but reports she did well and rapidly returned to normal after this as well. Since then, she has not had significant issues. She denies chest discomfort or nyla rtness of breath. She no longer has any issues with leg swelling, despite being off spironolactone.She denies dizziness/lightheadedness. She goes to PT twice per week and she also does the recommended exercises at home. Walking with walker but is doing this frequently and is learning with a cane. She feels like she is making steady progress and is happy. They are checking BPs at home but she is not sure what they all are but she thinks they have been okay and never high. Mostly in the 90s-100ssystolic she thinks. Never dizzy or lightheaded, even when Bps are on the low side. Rogelio manages her medications and she is unable to reconcile them with me, but we did discuss the rationale for metoprolol succinate versus tartrate and she was able to repeat back that I wanted her toremain on the long acting form and that it is safe to crush if needed. Confirmed continued abstinence from tobacco and alcohol. Review of Systems As per HPI. 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 Sounds well by phone. No results found for this or any previous visit (from the past 72 hour(s)). Lipid Panel Lab Results Component Value Date CHLPL 110 08/29/2022 HDL 34 08/29/2022 CHOLHDL 3.2 08/29/2022 TRIG 127 08/29/2022 LDLCHOL 51 08/29/2022 ECG (01/15/23): personally reviewed and interpreted Sinus bradycardia, low voltage, otherwise normal TTE ([facility], 11/20/22): TTE (08/19/22): Interpretation Summary [...] and with supportive care for the inciting events. We discussed that people who have had stress cardiomyopathy are at increased riskof recurrence in the future and that we will want to be vigilant around the time of physical stressors and carefully manage her medications. She appears to be doing well in terms of her heart at thistime. - Continue current medical therapy - Continue metoprolol succinate 25mg po bid [Do not switch this to tartrate on an outpatient basis.Crushing succinate does not impact its duration of action which is chemically based not capsule-release based. Crushed succinate has a duration of action of 24 hours, the same as if the patient swallowed the pill.] - Continue Entresto at current dosing for now - Spironolactone discontinued in February; no indication to resume - Continue Jardiance # Return to Care - In ~August in person and sooner as needed - Call with issues A total of 30 minutes was spent today in review of the records, personal interpretation of testing results, medication reconciliation, interview, counseling of the patient, coordination of care and documentation of the above. Fourteen minutes were spent in direct communication with the patient via phone, an additional 16 minutes in chart preparation and documentation after the visit. Thank you for the opportunity to participate in this patient's cardiovascular care. All questions were answered and I look forward to the next visit. Milagros Hernandez MD Cardiovascular Medicine [facility] 04/12/2023 documented in this encounter Plan of Treatment Upcoming Encounters Date Type Department Care Team (Late st Contact Info) Description 12/07/2023 1:00 PM EDT Appointment [place] [address] 12/07/2023 2:00 PM EDT Office [place] [address] Geronimo Mojica MD [facility] [place] [address] 12/27/2023 11:30 AM EDT Office [place] [address] Noe Cuenca MD [facility] [place] [address] Scheduled Procedures Name Priority Associated Diagnoses Date/Ti me EGD, UPPER GI ENDOSCOPY (WRV U 2.09) Peptic stricture of esophagus documented as of this encounter Visit Diagnoses Diagnosis Stress-induced cardiomyopathy Takotsubo syndrome documented in this encounter Care Teams Grader Marker Relationship Specialty Start Date End Date Ana Gillespie APRN [address] [place] [address] PCP - General Family Medicine 02/03/19 documented as of this encounter
--- OUTSIDE RECORDS SUMMARY | 2023-12-03 14:55 | XMS_ITS | Encounter Summary ---
Author Organization [facility] [place] [address] Care Team Providers Care Job Checker Name Role Phone Ana Gillespie APRN Primary Care Provider Encounter Details Date Type Department Care Team (Late st Contact Info) Description 05/14/2023 Telephone [place] [phone] Chiquita James, RN Social History Tobacco Use [...] Telephone Encounter - Chiquita James, RN - 05/14/2023 1:17 PM EST Spoke with Ana Gillespie APRN who is Jennifer's PCP. Jennifer has expressed to her that she is very worried about her upcoming EGD on 05/18 as she has previously developed aspiration pneumonia a few days after these, leading to very worrisome hospital admissions. They are wondering if there is anything the can do to help prevent this from happening again next week. Ana states she has scheduled Jennifer for follow up with her 1 week after her procedure to see if there is anything that she can do from her end to help support them. Forwarded documented in this encounter Plan of Treatment Upcoming Encounters Date Type Department Care Team (Late st Contact Info) Description 12/07/2023 1:00 PM EDT Appointment [place] [phone] 12/07/2023 2:00 PM EDT Office [place] [phone] Geronimo Mojica MD [facility] [place] [address] 12/27/2023 11:30 AM EDT Office [place] [phone] Noe Cuenca MD [facility] [place] [address] Scheduled Procedures Name Priority Associated Diagnoses Date/Ti me EGD, UPPER GI ENDOSCOPY (WRV U 2.09) Peptic stricture of esophagus documented as of this encounter Visit Diagnoses Not on filedocumented in this encounter Care Teams Job Checker Relationship Specialty Start Date End Date Ana Gillespie APRN [address] [place] [address] PCP - General Family Medicine 02/03/19 documented as of this encounter
--- OUTSIDE RECORDS SUMMARY | 2023-12-03 14:55 | XMS_ITS | Encounter Summary ---
Author Organization [facility] Address [facility] [place] [address] Care Team Providers Care Chief Enterprise Architect Name Role Phone Ana Gillespie VAUGHN Primary Care Provider [phone] Encounter Details Date Type Department Care Team (Latest Contact Info) Description 04/06/2023 Travel Social History Tobacco Use Types Packs/Day [...] 12/07/2023 1:00 PM EDT Appointment Pulmonology at [place] [phone] 12/07/2023 2:00 PM EDT Office Visit Thoracic Surgery at [place] [phone] Geronimo Mojica MD [facility] [place] [address] 12/27/2023 11:30 AM EDT Office Visit Pulmonology at [place] [phone] Noe Cuenca MD [facility] [place] [address] Scheduled Procedures Name Priority Associated Diagnoses Date/Ti me EGD, UPPER GI ENDOSCOPY (WRV U 2.09) Peptic stricture of esophagus documented as of this encounter Visit Diagnoses Not on filedocumented in this encounter Care Teams Chief Enterprise Architect Relationship Specialty Start Date End Date Ana Gillespie APRN [address] [place] [address] PCP - General Family Medicine 02/03/19 documented as of this encounter
--- OUTSIDE RECORDS SUMMARY | 2023-12-03 14:55 | XMS_ITS | Encounter Summary ---
[place] [address] Care Team Providers Care End User Support Specialist Name Role Phone Ana Gillespie VAUGHN Primary Care Provider [phone] Encounter Details Date Type Department Care Team (Late st Contact Info) Description 04/19/2023 [place] [address] Juice Maxwell RN Social History [...] Telephone Encounter - Juice Maxwell RN - 04/19/2023 11:34 AM EST TC from pt's explaining that his , Nkechi, had to cancel her EGD today due to hazardous driving/weather conditions. Pt is requesting a call back to reschedule. [phone] Forwarded to scheduling. documented in this encounter Plan of Treatment Upcoming Encounters Date Type Department Care Team (Late st Contact Info) Description 12/07/2023 1:00 PM EDT [place] [phone] 12/07/2023 2:00 PM EDT Office [place] [address] Geronimo Mojica MD [facility] [place] [address] 12/27/2023 11:30 AM EDT [place] [phone] Noe Cuenca MD [facility] PULMONARY MEDICINE [place], [place] [phone] Scheduled Procedures Name Priority Associated Diagnoses Date/Ti me EGD, UPPER GI ENDOSCOPY (WRV U 2.09) Peptic stricture of esophagus documented as of this encounter Visit Diagnoses Not on filedocumented in this encounter Care Teams End User Support Specialist Relationship Specialty Start Date End Date Ana Gillespie APRN [address] [place] [address] PCP - General Family Medicine 02/03/19 documented as of this encounter
--- OUTSIDE RECORDS SUMMARY | 2023-12-03 14:56 | XMS_ITS | Encounter Summary ---
Author Organization [facility] [place] [address] Care Team Providers Care Internet Sales Consultant Name Role Phone Ana Gillespie APRN Primary Care Provider [phone] Encounter Details Date Type Department Care Team (Late Contact Info) Description 12/24/2022 Orders [place] [phone] David Dejesus MD [facility] [place] [place] [address] Peptic stricture of esophagus Social History Tobacco Use Types Packs/Day Years Used Date Smoking Tobacco: Former Cigarettes 1 - 02/26/2021 Smokeless Tobacco: Never Alcohol Use Standard Drinks/Week Comments Not Currently 1 (1 standard drink = 0.6 oz pur e alcohol) Sex and Gender Information Value Date Recorded Sex Assigned at Not on file Gender Identity Not on file Sexual Orientation Not on file documented as of this encounter Plan of Treatment Upcoming Encounters Date Type Department Care Team (Late Contact Info) Description 12/07/2023 1:00 PM EDT Appointment [place] [phone] 12/07/2023 2:00 PM EDT Office [place] [phone] Geronimo Mojica MD [facility] [place] [address] 12/27/2023 11:30 AM EDT [place] [address] Noe Cuenca MD [facility] [place] [address] Scheduled Orders Name Type Priority Associated Diagnoses Orde r Schedule ENDOSCOPY CASE REQUEST: EGD, UPPER GI ENDOSCOPY (WRVU 2.09) Procedures Routine Peptic stricture of esophagus Ordered: 12/24/2022 Scheduled Procedures Name Priority Associated Diagnoses Date/Ti me EGD, UPPER GI ENDOSCOPY (WRV U 2.09) Peptic stricture of esophagus documented as of this encounter Visit Diagnoses Diagnosis Peptic stricture of esophagus Stricture and stenosis of esophagus documented in this encounter Care Teams Internet Sales Consultant Relationship Specialty Start Date End Date Ana Gillespie APRN [address] [place] [address] PCP - General Family Medicine 02/03/19 documented as of this encounter
--- OUTSIDE RECORDS SUMMARY | 2023-12-03 14:56 | XMS_ITS | Encounter Summary ---
Author Organization Formerly [facility] Address [facility] [place] [address] Care Team Providers Care Nurse Monitoring Name Role Phone Ana Gillespie APRN Primary Care Provider Reason for Visit * Consultation (Urgent) - Closed Specialty Diagnoses / Procedures Referred By Esperanza t Referred To Contact Cardiology Diagnoses Cardiac LV ejection fraction 30-35% Ana Gillespie APRN [address] [place] [address] [facility] Card[facility] [address] [place] [phone] Referral ID Status Reason Start Date Expiration Date V isits Requested Visits Authorized [id number] Closed Consult, Test & Treat PCP Updated and/or Approved 11/23/2022 11/23/2023 12 12 Encounter Details Date Type Department Care Team (Latest Contact Info) Description 01/15/2023 11:20 AM EDT Office Visit Cardiology at [address] [phone] Milagros Hernandez MD [facility] [place] [address] Stress-induced cardiomyopathy (Primary Dx); HFrEF (heart failure with reduced ejection fraction) Social History Tobacco Use Types Packs/Day Years [...] Sign Reading Time Taken Comments Blood Pressure 113/52 01/15/2023 11:07 AM EDT Pulse 52 01/15/2023 11:07 AM EDT Temperature - - Respiratory Rate - - Oxygen Saturation 100% 01/15/2023 11:07 AM EDT Inhaled Oxygen Concentration - - Weight 65.3 kg (144 lb) 01/15/2023 11:07 AM EDT Height 152.4 cm (5') 01/15/2023 11:07 AM EDT Body Mass Index 28.12 01/15/2023 11:07 AM EDT documented in this encounter Patient Instructions * Patient Instructions* Milagros Hernandez MD - 01/15/2023 11:20 AM EDT Okay to proceed to surgery as planned Hold the Jardiance for three days prior to surgery Hold the Entresto and spironolactone the morning of surgery Continue metoprolol without interruption, even on the day of surgery 2. Come back and see me in about 3 months or sooner as needed documented in this encounter Progress Notes * Milagros Hernandez MD - 01/15/2023 11:20 AM EDT Images from the original note were not included. 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 90 tablet 3 buPROPion (Wellbutrin) 100 mg tablet 1 tablet by Per G Tube route daily. 90 tablet 3 empagliflozin (Jardiance) 10 mg tablet Take 1 tablet by mouth daily. 90 tablet 3 ferrous sulfate 300 mg (60 mg iron)/5 mL Liquid 5 mLs by Per G Tube route every other day. 150 mL 12 folic acid (Vitamin B9) 1 mg tablet 1 tablet by Per G Tube route daily. 90 tablet 3 gabapentin (Neurontin) 300 mg capsule 1 capsule by Per G Tube route 3 times daily. 90 capsule 12 insulin glargine-yfgn (Semglee) 100 unit/mL Solution Inject 10 Units subcutaneously nightly. (Patient taking differently: Inject subcutaneously nightly. Lantus) 5 mL 3 metoprolol succinate XL (Toprol-XL) 50 mg ER 24 hr tablet Take 1 tablet by mouth daily. 30 tablet 12 sacubitriL-valsartan (Entresto) 24-26 mg tablet 1 tablet by Per G Tube route 2 times daily. 60 tablet 3 valproate (Depakene) 250 mg/5 mL (5 mL) Solution 6 mLs by Per G Tube route every 6 hours. 600 mL 3 spironolactone (Aldactone) 25 mg tablet Take 0.5 tablets by mouth daily. 45 tablet 3 pantoprazole EC (Protonix) 40 mg Tablet, [...] glucose meter kit. 1 each 0 Insulin [place], Disposable, (BD INSULIN PEN NEEDLE UF MINI) 31 x 3/16 Needle 1 Device by [facility].(Non-Drug; Combo Route) route 3 times daily as [...] esophagitis, Farrell's esophagus and esophageal stricture. She presents today for delayed hospital check and to establish longitudinal care in Cardiology. HPI Ms. Irving had a complicated hospitalization [...] on 01/12) and is closely following in GI for this, planningto continue this therapy. She also underwent repeat TTE in November which showed recovery of her LVEF. She presents today with her , Rogelio. They both report she is doing quite well and is making progressive improvements. She denies any symptoms of chest pain, dyspnea, presyncope/syncope, palpitations. She does have some intermittent leg swelling which appears to be dependent and worse when she is not elevating her legs. She does sleep propped up on pillows due to some orthopnea. Unfortunately they report that her left femoral repair failed due to poor vascular supply at the hip. Dr. Mills putting in new L hip replacement at [facility] next week due to inadequate healing form her fracture as a result of this. We discussed her prior history of stress cardiomyopathy and how thatwas likely due to her multifocal pneumonia rather than the prior surgery, but that we need to remain on high alert. We also reviewed in detail recommended management of her cardiac medications aroundthe time of surgery. Confirmed continued abstinence from tobacco and alcohol. Review of Systems Positive as per HPI 12-point ROS otherwise negative. 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 +GT Ext warm, 1+ RLE edema, trace LLE. Note significant muscular atrophy of LLE Non-dipahoretic AAOx3, face symmetric, moving all extremities spontaneously although wheelchair bound Slightly delayed but appropriate and cooperative Recent Results (from the past 72 hour(s)) EKG 12 Lead Result Value Ventricular rate 54 Atrial Rate 54 P-R Interval 176 QRS Duration 74 Q-T Interval 450 QTC Calculated (Bezet) 426 Calculated P [place] 55 Calculated R [place] 56 Calculated T [place] 49 INTERPRETATION Sinus bradycardia Low voltage QRS Borderline ECG When compared with ECG of 07-SEP-2022 06:35, T wave inversion no longer evident in Anterolateral leads Confirmed by MD Amada, Tae ([id number]) on 01/15/2023 3:00:31 PM Lipid Panel Lab Results Component Value Date CHLPL 110 08/29/2022 HDL 34 08/29/2022 CHOLHDL 3.2 08/29/2022 TRIG 127 08/29/2022 LDLCHOL 51 08/29/2022 ECG (01/15/23): personally reviewed and interpreted Sinus bradycardia, low voltage, otherwise normal TTE ([facility], 11/20/22): TTE (08/19/22): Interpretation Summary -Left ventricular [...] stressors and carefully manage her medications. She and Rogelio express understanding. - Continue current medical therapy - Continue metoprolol through surgery without interruption - Hold Entresto and spironolactone the morning of surgery and resume as soon as feasible after - Hold Jardiance for 3 days prior to surgery - Okay to proceed with surgery as planned - Continue care with GI of underlying issues of esophageal stricture with aspiration # Return to Care - In three months in person and sooner as needed - Call with issues A total of 60 minutes was spent today in review of the records (an extensive amount of time was spent reviewing records of her complicated hospitalization and care since that time), personal interpretation of testing results, medication reconciliation, [id number] interview, examination and counseling of the patient, coordination of care and documentation of the above. Thank you for the opportunity to participate in this patient's cardiovascular care. All questions were answered and I look forward to the next visit. Milagros Hernandez MD Cardiovascular Medicine [facility] 01/15/2023 documented in this encounter Plan of Treatment Upcoming Encounters Date Type Department Care Team (Late st Contact Info) Description 12/07/2023 1:00 PM EDT Appointment [place] [address] 12/07/2023 2:00 PM EDT Office [place] [phone] Geronimo Mojica MD [facility] [place] [address] 12/27/2023 11:30 AM EDT Office [place] [address] Noe Cuenca MD [facility] [place] [address] Scheduled Procedures Name Priority Associated Diagnoses Date/Ti me EGD, UPPER GI ENDOSCOPY (WRV U 2.09) Peptic stricture of esophagus documented as of this encounter Procedures Procedure Name Priority Date/Time Associated Diagnosis Comments EKG 12-LEAD Routine 01/15/2023 11:26 AM EDT HFrEF (heart failure with reduced ejection fraction) documented in this encounter Results * EKG 12 Lead (01/15/2023 11:26 AM EDT) Ventricular rate 54 BPM MUSE SYSTEM Atrial Rate 54 BPM MUSE SYSTEM P-R Interval 176 ms MUSE SYSTEM QRS Duration 74 ms MUSE SYSTEM Q-T Interval 450 ms MUSE SYSTEM QTC Calculated (Bezet) 426 ms MUSE SYSTEM Calculated P [place] 55 degrees MUSE SYSTEM Calculated R [place] 56 degrees MUSE SYSTEM Calculated T [place] 49 degrees MUSE SYSTEM INTERPRETATION Sinus bradycardia Low voltage QRS Borderline ECG When compared with ECG of 07-SEP-2022 06:35, T wave inversion no longer evident in Anterolateral leads Confirmed by MD Amada, Tae ([id number]) on 01/15/2023 3:00:31 PM MUSE SYSTEM 01/15/2023 11:2 6 AM EDT 01/15/2023 3:00 PM EDT Milagros Hernandez MD ECG ORDERABLES MUSE SYSTEM documented in this encounter Visit Diagnoses Diagnosis Stress-induced cardiomyopathy- Primary Takotsubo syndrome HFrEF (heart failure with reduced ejection fraction) documented in this encounter Care Teams Nurse Monitoring Relationship Specialty Start Date End Date Ana Gillespie APRN [address] [place] [address] PCP - General Family Medicine 02/03/19 documented as of this encounter
--- OUTSIDE RECORDS SUMMARY | 2023-12-03 14:56 | XMS_ITS | Encounter Summary ---
Author Organization [facility] [place] [address] Care Team Providers Care Senior Principal Software Engineer Name Role Phone Ana Gillespie APRN Primary Care Provider [phone] Encounter Details Date Type Department Care Team (Late Contact Info) Description 01/12/2023 Orders [place] [phone] David Dejesus MD [facility] [place] [address] Peptic stricture of esophagus Social History Tobacco [...] 12/07/2023 1:00 PM EDT Appointment [place] [phone] 12/07/2023 2:00 PM EDT Office [place] [phone] Geronimo Mojica MD [facility] [place] [address] 12/27/2023 11:30 AM EDT Office [place] [address] Noe Cuenca MD [facility] [place] [address] Scheduled Procedures Name Priority Associated Diagnoses Date/Ti me EGD, UPPER GI ENDOSCOPY (WRV U 2.09) Peptic stricture of esophagus documented as of this encounter Visit Diagnoses Diagnosis Peptic stricture of esophagus Stricture and stenosis of esophagus documented in this encounter Care Teams Senior Principal Software Engineer Relationship Specialty Start Date End Date Ana Gillespie APRN [address] [place] [address] PCP - General Family Medicine 02/03/19 documented as of this encounter
--- OUTSIDE RECORDS SUMMARY | 2023-12-03 14:56 | XMS_ITS | Encounter Summary ---
Author Organization [facility] Address [facility] [place] [address] Care Team Providers Care District Service Manager Name Role Phone Ana Gillespie VAUGHN Primary Care Provider [phone] Encounter Details Date Type Department Care Team (Latest Contact Info) Description 11/27/2022 Travel Social History Tobacco Use Types Packs/Day [...] 12/07/2023 1:00 PM EDT Appointment Pulmonology at [place] [phone] 12/07/2023 2:00 PM EDT Office Visit Thoracic Surgery at [place] [phone] Geronimo Mojica MD [facility] [place] [address] 12/27/2023 11:30 AM EDT Office Visit Pulmonology at [place] [phone] Noe Cuenca MD [facility] [place] [address] Scheduled Procedures Name Priority Associated Diagnoses Date/Ti me EGD, UPPER GI ENDOSCOPY (WRV U 2.09) Peptic stricture of esophagus documented as of this encounter Visit Diagnoses Not on filedocumented in this encounter Care Teams District Service Manager Relationship Specialty Start Date End Date Ana Gillespie APRN [address] [place] [address] PCP - General Family Medicine 02/03/19 documented as of this encounter
--- OUTSIDE RECORDS SUMMARY | 2023-12-03 14:56 | XMS_ITS | Encounter Summary ---
[place] [address] Care Team Providers Care Innovation Manager Name Role Phone Ana Gillespie SOUS CHEF Primary Care Provider [phone] Encounter Details Date Type Department Care Team (Late st Contact Info) Description 12/10/2022 Telephone [place] [phone] Jessica Beckman Social History Tobacco Use Types Packs/Day Years [...] encounter Miscellaneous Notes * Telephone Encounter - Jessica Beckman - 12/10/2022 10:46 AM EDT After all screening questions, pt needs MAC EGD; uses oxygen nightly; unable to use IVCS. No MAC availability; added pt to wait list; caller upset and wants input from pt Dr Dejesus. IB sent. Will call pt back with reply. documented in this encounter Plan of Treatment Upcoming Encounters Date Type Department Care Team (Late st Contact Info) Description 12/07/2023 1:00 PM EDT Appointment [place] [phone] 12/07/2023 2:00 PM EDT Office [place] [address] Geronimo Mojica MD [facility] [address] 12/27/2023 11:30 AM EDT Office [place] [phone] Noe Cuenca MD [facility] PULMONARY MEDICINE [place], [place] [phone] Scheduled Procedures Name Priority Associated Diagnoses Date/Ti me EGD, UPPER GI ENDOSCOPY (WRV U 2.09) Peptic stricture of esophagus documented as of this encounter Visit Diagnoses Not on filedocumented in this encounter Care Teams Innovation Manager Relationship Specialty Start Date End Date Ana Gillespie APRN [address] [place] [address] PCP - General Family Medicine 02/03/19 documented as of this encounter
--- OUTSIDE RECORDS SUMMARY | 2023-12-03 14:56 | XMS_ITS | Encounter Summary ---
Author Organization [facility] [place] [address] Care Team Providers Care Commercial Litigation Associate Name Role Phone Ana Gillespie VAUGHN Primary Care Provider [phone] Encounter Details Date Type Department Care Team (Late st Contact Info) Description 03/01/2023 Telephone [place] [phone] Jessica Beckman Social History Tobacco Use Types [...] * Telephone Encounter - Jessica Beckman - 03/01/2023 2:54 PM EDT Campos rtnd call. Msg sent to Urgent Supervisor Photocomposition to call him back to sched pt. documented in this encounter Plan of Treatment Upcoming Encounters Date Type Department Care Team (Late st Contact Info) Description 12/07/2023 1:00 PM EDT Appointment [place] [phone] 12/07/2023 2:00 PM EDT Office [place] [phone] Geronimo Mojica MD [facility] [place] [address] 12/27/2023 11:30 AM EDT Office [place] [address] Noe Cuenca MD [facility] [place] [address] Scheduled Procedures Name Priority Associated Diagnoses Date/Ti me EGD, UPPER GI ENDOSCOPY (WRV U 2.09) Peptic stricture of esophagus documented as of this encounter Visit Diagnoses Not on filedocumented in this encounter Care Teams Commercial Litigation Associate Relationship Specialty Start Date End Date Ana Gillespie APRN [address] [place] [address] PCP - General Family Medicine 02/03/19 documented as of this encounter
--- OUTSIDE RECORDS SUMMARY | 2023-12-03 14:56 | XMS_ITS | Encounter Summary ---
Author Organization [facility] [place] [address] Care Team Providers Care Certified Orthotist/Pedorthist Name Role Phone Ana Gillespie APRN Primary Care Provider [phone] Reason for Visit * Reason Onset Date Comments Medication Refill 11/19/2022 Encounter Details Date Type Department Care Team (Late st Contact Info) Description 11/19/2022 Ref[place] [phone] Alyce Vogt RN Social History Tobacco Use Types Packs/Day [...] 12/07/2023 1:00 PM EDT Appointment [place] [phone] 12/07/2023 2:00 PM EDT Office [place] [phone] Geronimo Mojica MD [facility] [place] [address] 12/27/2023 11:30 AM EDT Office [place] [phone] Noe Cuenca MD [facility] [place] [address] Scheduled Procedures Name Priority Associated Diagnoses Date/Ti me EGD, UPPER GI ENDOSCOPY (WRV U 2.09) Peptic stricture of esophagus documented as of this encounter Visit Diagnoses Not on filedocumented in this encounter Care Teams Certified Orthotist/Pedorthist Relationship Specialty Start Date End Date Ana Gillespie APRN [address] [place] [address] PCP - General Family Medicine 02/03/19 documented as of this encounter
--- OUTSIDE RECORDS SUMMARY | 2023-12-03 14:56 | XMS_ITS | Encounter Summary ---
Author Organization [facility] Address [facility] [place] [address] Care Team Providers Care Chemistry Lab Instructor Name Role Phone Ana Gillespie VAUGHN Primary Care Provider [phone] Encounter Details Date Type Department Care Team (Late st Contact Info) Description 01/12/2023 7:30 AM EDT - 01/12/2023 8:00 AM EDT [place] [phone] David Dejesus MD [facility] [place] [address] EGD,WITH DILATION ESOPHAGUS WITH BALLOON,< 30 MM [...] Sign Reading Time Taken Comments Blood Pressure 100/56 01/12/2023 7:05 AM EDT Pulse 64 01/12/2023 7:05 AM EDT Temperature 35.9 ??C (96.7 ??F) 01/12/2023 7:05 AM ED T Respiratory Rate 16 01/12/2023 7:05 AM EDT Oxygen Saturation 96% 01/12/2023 7:05 AM EDT Inhaled Oxygen Concentration - - Weight 65.3 kg (144 lb) 01/12/2023 7:05 AM EDT Height 152.4 cm (5') 01/12/2023 7:05 AM EDT Body Mass Index 28.12 01/12/2023 7:05 AM EDT documented in this encounter Discharge Instructions * Discharge Instructions* Tegan Caballero RN - 01/12/2023 9:28 AM EDT Upper GI Endoscopy: What to [...] the day after the procedure, use an vrcz-mnj-wjznlqn spray to numb your throat. Sucking on [...] occurs, please contact your Doctor. Please call [phone] before 8pm Mon-Fri with problems, questions or concerns. If you call after 8pm or on weekends, call the Hospital at [phone] and ask to speak to the Band Reamer Machine Operator transportation engineering technician and the band log mill and carriage operator will contact that person for you. When should you call for help? Call [phone] anytime you think you may need emergency [...] any problems. Where can you learn more? [facility] View your After Visit Summary and more online at [email or web address] If you would like to provide feedback about your hospital experience, please call the Office of Patient and Family Relations at . If you have received this After Visit Summary in error, please immediately return it in person to the department, or notify the [facility] Privacy Office by calling toll free at between the hours of 8AM and 5PM to arrange for our retrieval of the documents at no cost to you. Content Version: 12.2 ?? [id number] [employer]. Care instructions adapted under license by [facility]. If you have questions about a medical condition or this instruction, always ask your healthcare professional. [employer] disclaims any warranty or liability for your use of this information. documented in this encounter Medications at Time of Discharge Medication Sig Dispensed Refills Start Date End Date insulin isophane- NPH 100 unit/mL (3 mL) [...] Tube route every other day. 150 mL 09/26/2022 folic acid (Vitamin B9) 1 mg [...] strips. 300 each 3 12/14/2014 Blood-Glucose Meter (TopguestTOUCH ULTRA2) KitIndications:Type 2 diabetes mellitus, uncontrolled by Other route. 1 = one blood glucose meter kit. 1 each 0 12/14/2014 Insulin [place], Disposable, (BD INSULIN PEN NEEDLE UF MINI) 31 x 3/16 NeedleIndications:Di abetes mellitus type 2, uncontrolled 1 Device by Misc.(Non-Drug; Combo Route) route 3 times daily as needed. 100 each 11 12/13/2014 buPROPion (Wellbutrin) 100 mg tablet 1 tablet by Per G Tube route daily. 90 tablet 3 09/25/2022 02/24/2023 gabapentin (Neurontin) 300 mg capsule 1 capsule by Per G Tube route 3 times daily. 90 capsule 12 09/24/2022 02/24/2023 metoprolol succinate XL (Toprol-XL) 50 mg ER 24 hr tablet Take 1 tablet by mouth daily. 30 tablet 12 09/24/2022 03/03/2023 sacubitriL-valsartan (Entresto) 24-26 mg tablet 1 tablet by Per G Tube route 2 times daily. 60 tablet 3 09/24/2022 07/12/2023 spironolactone (Aldactone) 25 mg tablet Take 0.5 tablets by mouth daily. 45 tablet 3 09/24/2022 02/25/2023 QUEtiapine (SEROquel) 50 mg Tablet Take 50 mg by mouth daily. 02/10/2020 04/30/2023 documented as of this encounter H&P Notes * Parminder Mao MD - 01/12/2023 7:31 AM EDT Gastroenterology and Hepatology Pre-Procedure History and Physical Exam Procedure: EGD Indication: proximal esophageal stricture, serial dilatation. Last EGD 12/24/2022, balloon dilated to 6mm. Patient Active Problem List Diagnosis Code GERD (gastroesophageal reflux disease) K21.9 Farrell's esophagus K22.70 T2DM (type 2 diabetes mellitus) E11.9 BMI 37.0-37.9, adult Z68.37 Bipolar disorder F31.9 Neuroleptic-induced parkinsonism G21.11 EXAM: HEENT: Airway examined, oropharynx clear Mallampati [...] 12/07/2023 1:00 PM EDT Appointment [place] [address] 12/07/2023 2:00 PM EDT Office [place] [address] Geronimo Mojica MD [facility] [place] [address] 12/27/2023 11:30 AM EDT Office [place] [phone] Noe Cuenca MD [facility] [place] [address] Scheduled Procedures Name Priority Associated Diagnoses Date/Ti me EGD, UPPER GI ENDOSCOPY (WRV U 2.09) Peptic stricture of esophagus documented as of this encounter Procedures Procedure Name Priority Date/Time Associated Diagnosis Comments Up Gi Endoscopy, Ball Dil, 30Mm (20990) 01/12/2023 8:06 AM EDT Peptic stricture of esophagus POCT GLUCOSE Routine 01/12/2023 7:31 AM EDT documented in this encounter Results * POCT Glucose (01/12/2023 7:31 AM EDT) POC Glucose 115 65 - 199 mg/dL [facility] Comment: Supplemental ranges: <140 mg/dL before meals <180 mg/dL all other times of the day Blood 01/12/2023 7:31 AM EDT 01/12/2023 7:31 AM EDT David Dejesus MD POINT OF CARE TEST ORDERABLES [facility] [place] [address] documented in this encounter Visit Diagnoses Diagnosis Peptic stricture of esophagus Stricture and stenosis of esophagus documented in this encounter Administered Medications Inactive Administered Medications - up to 3 most recent administrations Medication Order MAR Action Action Date Dose Rate Site lactated ringers infusion 100 mL/hr, Intravenous, CONTINUOUS, Starting on Wed01/12/23 at 0745, Until Wed01/12/23 at 1008, Endoscopy (Day of Procedure) Restarted 01/12/2023 9:15 AM EDT New Bag 01/12/2023 7:45 AM EDT 100 mL/hr 100 mL/hr documented in this encounter Active and Recently Administered Medications Times are shown in EDT. Continuous Medication Order 01/10/2023 01/11/2023 01/12/2023 lactated ringers infusion (CANCELED) 100 mL/hr, Intravenous, CONTINUOUS, Starting on 01/12/23 at 0745, Until 01/12/23 at 1008, Endoscopy (Day of Procedure) 0745 (New Bag - Prov ider: Mckenzie Ricardo RN)0914 (Paused - Provider: Chiquis Burnham CRNA - Comment: Switch to gravity)0915 (Restarted - Provider: Chiquis Burnham CRNA) documented in this encounter Care Teams Chemistry Lab Instructor Relationship Specialty Start Date End Date Ana Gillespie APRN [address] [place] [address] PCP - General Family Medicine 02/03/19 documented as of this encounter
--- OUTSIDE RECORDS SUMMARY | 2023-12-03 14:56 | XMS_ITS | Encounter Summary ---
Author Organization [facility] Address [facility] [place] [address] Care Team Providers Care Drinking Water Technician Name Role Phone Ana Gillespie APRN Primary Care Provider [phone] Encounter Details Date Type Department Care Team (Late st Contact Info) Description 11/23/2022 Notes Only Radiology at [facility] [place] [address] Hang Cooper PA [facility] [place] [address] Social History Tobacco Use Types Packs/Day Years [...] as of this encounter H&P Notes * Hang Cooper PA - 11/23/2022 3:29 PM EDT Images from the original note were not included. Interventional Radiology Focused Pre-procedure H&P: PCP: Ana Gillespie APRN Procedure indication: Dysphagia, Farrell's with esophageal strictures, G-tube dependent IR workflow: Procedure request received through the Interventional Radiology eDH order queue. History of present illness: Per chart review, Jennifer Irving is a 62 y.o. female who presentsto Interventional Radiology to undergo exchange of G-tube in setting of dysphagia. This is a patient with recent prolonged admission, s/p placement of 16 F G-tube by IR on 09/11/22 secondary to dysphagia and Farrell's with esophageal strictures. Referred back to IR for exchange due to concern of broken catheter component. May be candidate for conversion to low-profile catheter. Medical history notable for T2DM, bipolar disorder. Remainder of patient's medical and surgical history, allergies, medications, and social/family history obtained below as previously outlined in patient's medical record. IR history: as above Imaging: Assessment: 62 y.o. female with with broken G-tube presenting to Interventional Radiology for exchange. Plan Planned procedure: Exchange of 16 F G-tube Labs to be performed day of procedure: No labs Sedation: No Sedation Prophylactic antibiotic : None Contrast: Omnipaque Additional medications for procedure: Lido jelly Position: Supine Consent: Scanned Medications to discontinue (and days held): None Cytopathology presence needed: No Case Urgency:: F- Elective OUT-patient intervention within 3 days Labs: Lab Results Component Value Date HGB [...] Prior to Visit Medication Sig Dispense Refill ergocalciferoL, vitamin D2, (vitamin D2) 50,000 unit capsule Take 1 capsule by mouth every 14 days.6 capsule 3 ergocalciferoL, vitamin D2, (vitamin D2) 50,000 [...] 4 times daily. 360 tablet 3 insulin isophane- NPH 100 unit/mL (3 mL) Insulin Pen Administer 15 units at start of your feed and 15 units 6 hours into your feed 10 mL 12 insulin aspart U-100 (NovoLOG FlexPen U-100 Insulin) [...] mg by mouth daily. Blood Sugar Diagnostic ([employer] ULTRA TEST) Strip 1 each by Other [...] glucose meter kit. 1 each 0 Insulin [place], Disposable, (BD INSULIN PEN NEEDLE UF MINI) 31 x 3/16 Needle 1 Device by [facility].(Non-Drug; Combo Route) route 3 times daily as needed. 100 each 11 No current facility-administered medications on file prior to visit. Past medical/surgical history: Patient Active Problem List Diagnosis Code GERD (gastroesophageal reflux disease) K21.9 Farrell's esophagus K22.70 T2DM (type 2 diabetes mellitus) E11.9 BMI 37.0-37.9, adult Z68.37 Bipolar disorder F31.9 Neuroleptic-induced parkinsonism G21.11 Past Medical History: Diagnosis Date Bipolar disorder 02/12/2022 Past Surgical History: Procedure Laterality Date IR G-TUBE PLACEMENT 09/11/2022 IR G-Tube Placement 09/11/2022 Moustapha Hart MD [facility] IR SUTURE RELEASE 09/25/2022 IR Suture Release 09/25/2022 Yoselin Ghosh PA [facility] PERCUTANEOUS GASTROSTOMY N/A 09/11/2022 PERCUTANEOUS GASTROSTOMY performed by Aiden Flores MD at [facility] CATY PRO COLONOSCOPY, BIOPSY N/A 03/20/2016 COLONOSCOPY FLEXIBLE, WITH BX performed by David Dejesus MD at [facility] ENDOSCOPY PRO COLONOSCOPY, DIAGNOSTIC N/A 03/01/2020 COLONOSCOPY, DIAGNOSTIC performed by David Dejesus MD at [facility] ENDOSCOPY PRO ENDOSCOPIC US EXAM, ESOPH N/A 03/31/2022 UPPER EUS- ENDOSCOPIC ULTRASOUND performed by David Dejesus MD at [facility] ENDOSCOPY PRO UPPER GI ENDOSCOPY, BIOPSY N/A 04/03/2014 UPPER GASTROINTESTINAL ENDOSCOPY,WITH BIOPSY SINGLE OR MULTIPLE performed by David Dejesus MDat [facility] ENDOSCOPY PRO UPPER GI ENDOSCOPY, BIOPSY N/A 03/20/2016 EGD WITH BIOPSY performed by David Dejesus MD at [facility] ENDOSCOPY PRO UPPER GI ENDOSCOPY, BIOPSY N/A 11/22/2018 EGD WITH BIOPSY (WRVU 2.49) performed by David Dejesus MD at [facility] ENDOSCOPY PRO UPPER GI ENDOSCOPY, BIOPSY N/A 03/01/2020 UPPER GASTROINTESTINAL ENDOSCOPY,WITH BIOPSY SINGLE OR MULTIPLE (WRVU 2.49) performed by David Dejesus MD at [facility] ENDOSCOPY PRO UPPER GI ENDOSCOPY, BIOPSY N/A 09/23/2021 EGD WITH BIOPSY (WRVU 2.49) performed by David Dejesus MD at [facility] ENDOSCOPY PRO UPPER GI ENDOSCOPY, BIOPSY N/A 03/31/2022 EGD WITH BIOPSY (WRVU 2.49) performed by David Dejesus MD at [facility] ENDOSCOPY PRO UPPER GI ENDOSCOPY, BIOPSY N/A 07/03/2022 EGD WITH BIOPSY (WRVU 2.49) performed by David Dejesus MD at [facility] ENDOSCOPY PRO UPPER GI ENDOSCOPY, DIAGNOSTIC N/A 04/03/2014 EGD, UPPER GI ENDOSCOPY performed by David Dejesus MD at [facility] ENDOSCOPY PRO UPPER GI ENDOSCOPY, DIAGNOSTIC N/A 03/01/2020 EGD, UPPER GI ENDOSCOPY performed by David Dejesus MD at [facility] ENDOSCOPY PRO UPPER GI ENDOSCOPY, DIAGNOSTIC N/A 09/09/2022 EGD, UPPER GI ENDOSCOPY (WRVU 2.09) performed by Ayo Russ MD at [facility] MA[facility] OR Social history and habits: Social History Tobacco Use Smoking status: Former Years: 11.00 Types: Cigarettes Quit date: 02/26/2021 Years since quittin.7 Smokeless tobacco: Never Substance Use Topics Alcohol use: Not Currently Alcohol/week: 1.0 standard drink Types: 1 Glasses of wine per week Drug use: Never Significant family history: No family history on file. Pertinent ROS: as per HPI Physical exam: Pending (to be performed in interventional radiology the day of procedure) ASA: Pending (to be assessed in interventional radiology the day of procedure) Mallampati class: Pending (to be assessed in interventional radiology the day of procedure) 11/23/2022 ROSLYN Adkins documented in this encounter Plan of Treatment Upcoming Encounters Date Type Department Care Team (Late st Contact Info) Description 12/07/2023 1:00 PM EDT Appointment [place] [phone] 12/07/2023 2:00 PM EDT Office [place] [address] Geronimo Mojica MD [facility] [address] THORACIC SURGERY [place], [place] [phone] 12/27/2023 11:30 AM EDT Office [place] [address] Noe Cuenca MD [facility] [place] [address] Scheduled Procedures Name Priority Associated Diagnoses Date/Ti me EGD, UPPER GI ENDOSCOPY (WRV U 2.09) Peptic stricture of esophagus documented as of this encounter Visit Diagnoses Not on filedocumented in this encounter Care Teams Drinking Water Technician Relationship Specialty Start Date End Date Ana Gillespie APRN [address] [place] [address] PCP - General Family Medicine 02/03/19 documented as of this encounter
--- OUTSIDE RECORDS SUMMARY | 2023-12-03 14:56 | XMS_ITS | Encounter Summary ---
Author Organization [facility] Address [facility] [place] [address] Care Team Providers Care Keeler Polygraph Operator Name Role Phone Ana Gillespie VAUGHN Primary Care Provider [phone] Encounter Details Date Type Department Care Team (Late st Contact Info) Description 12/24/2022 12:00 PM EDT - 12/24/2022 12:30 PM EDT [place] [phone] David Dejesus MD [facility] [place] [address] EGD,WITH DILATION ESOPHAGUS WITH BALLOON,< 30 MM [...] Sign Reading Time Taken Comments Blood Pressure 110/57 12/24/2022 10:50 AM EDT Pulse 62 12/24/2022 10:50 AM EDT Temperature 36.2 ??C (97.2 ??F) 12/24/2022 10:50 AM E DT Respiratory Rate - - Oxygen Saturation 98% 12/24/2022 10:50 AM EDT Inhaled Oxygen Concentration - - [...] 180 tablet 3 10/20/2021 Blood Sugar Diagnostic ([facility] ULTRA TEST) StripIndications:Typ e 2 diabetes mellitus, [...] meter kit. 1 each 0 12/14/2014 Insulin [place], Disposable, (BD INSULIN PEN NEEDLE UF MINI) 31 x 07/23 NeedleIndications:Di abetes mellitus type 2, uncontrolled 1 Device by [facility].(Non-Drug; Combo Route) route 3 times daily as needed. 100 each 11 12/13/2014 ergocalciferoL, vitamin D2, (vitamin D2) 50,000 unit capsule Take 1 capsule by mouth every 14 days. 6 capsule 3 11/20/2022 01/12/2023 buPROPion (Wellbutrin) 100 mg tablet 1 tablet [...] H&P Notes * David Dejesus MD - 12/24/2022 11:53 AM EDT PROBLEM LIST Patient Active Problem List Diagnosis Code GERD (gastroesophageal reflux disease) K21.9 Farrell's esophagus K22.70 T2DM (type 2 diabetes mellitus) E11.9 BMI 37.0-37.9, adult Z68.37 Bipolar disorder F31.9 Neuroleptic-induced parkinsonism G21.11 HISTORY OF PRESENT ILLNESS Jennifer Irving is a 62 y.o. y/o who presents for EGD for peptic stricture dilation. MEDICATIONS No current facility-administered medications on file prior to encounter. Current Outpatient Medications on File Prior to Encounter Medication Sig Dispense Refill pantoprazole EC (Protonix) 40 mg Tablet, Delayed [...] glucose meter kit. 1 each 0 Insulin [place], Disposable, (BD INSULIN PEN NEEDLE UF MINI) 31 x 3/16 Needle 1 Device by [facility].(Non-Drug; Combo Route) route 3 times daily as needed. 100 each 11 PHYSICAL EXAM: Blood pressure 110/57, pulse 62, temperature 36.2 ??C (97.2 ??F), temperature source Tympanic, ChB993 %. GEN: Alert, cooperative. Pleasant. In NAD MP I ASA II HEENT: No oropharyngeal lesions. Neck supple. No masses. Thyroid symmetric LUNGS: CTAB CARD: RRR without m/g/r RECENT LABS Recent Results (from the past 24 hour(s)) POCT Glucose Result Value Ref [place] POC Glucose 123 65 - 199 mg/dL ASSESSMENT AND PLAN [...] 12/07/2023 1:00 PM EDT [place] [phone] 12/07/2023 2:00 PM EDT Office [place] [address] Geronimo Mojica MD [facility] [place] [address] 12/27/2023 11:30 AM EDT [place] [address] Noe Cuenca MD [facility] [place] [address] Scheduled Procedures Name Priority Associated Diagnoses Date/Ti me EGD, UPPER GI ENDOSCOPY (WRV U 2.09) Peptic stricture of esophagus documented as of this encounter Procedures Procedure Name Priority Date/Time Associated Diagnosis Comments Up Gi Endoscopy, Ball Scott, 30Mm ([address]487) 12/24/2022 11:56 AM EDT Farrell's esophagus without dysplasia UPPER GI ENDOSCOPY Routine 12/24/2022 11 :46 AM EDT POCT GLUCOSE Routine 12/24/2022 11:02 AM EDT documented in this encounter Results * UPPER GI ENDOSCOPY (12/24/2022 11:46 AM EDT) UPPER GI ENDOSCOPY [facility] Endoscopy Procedure Date: 12/24/2022 11:46 AM ? Patient Name: Jennifer Irving ? Date of : 1960 ? Age: 62 ? Order #: [id number] ? Instrument Name: [id number] ? Procedure: ? Upper GI endoscopy Indications: ? Dysphagia Providers: ? David Dejesus MD, Eligio Segura ? ERI Sadler, Narayan Blanchard MD: ? Medicines: ? Monitored Anesthesia Care Complications: ? [...] ? the procedure well. ? Findings: ? We intubated the esophagus and immediately ? encountered the distal end of the known stricture st ? 27 mm. The stricture was circumferentially inflamed ? but smooth without mass or nodularity. We could not ? advance either the gastroscope or Ultraslim scope. ? The lumen measured about 2 mm in diameter. We then ? serially dilated from 4-5-6 mm. We still could not ? advance beyond the stricture and elected to stop ? following the development of a small rent in the ? proximal stricture. ? Moderate Sedation: ? Not applicable - See Anesthesia documentation Impression: ?- Proximal peptic stricture - ? unable to traverse - dilated to 6 mm Recommendation: ?- Return in 10-14 days for repeat ? exam - hope to dilate to 10 mm if ? possible ? Attending Participation: ? I personally performed the entire procedure. ? _ David Dejesus MD 12/24/2022 12:39:50 PM This report has been signed electronically. Number of Addenda: 0 Note Initiated On: 12/24/2022 11:46 AM PROVATION 12/24/2022 11:4 6 AM EDT Unknown GENERAL SURGICAL ORD ERABLES Performing Organization Address [facility] Co de Phone Number PROVATION * POCT Glucose (12/24/2022 11:02 AM EDT) POC Glucose 123 65 - 199 mg/dL [facility] Comment: Supplemental ranges: <140 mg/dL before meals <180 mg/dL all other times of the day Blood 12/24/2022 11:0 2 AM EDT 12/24/2022 11:02 AM EDT David Dejesus MD POINT OF CARE TEST ORDERABLES Performing Organization Address [facility] Co de Phone Number [facility] [place] [address] documented in this encounter Visit Diagnoses Diagnosis Farrell's esophagus without dysplasia Farrell's esophagus documented in this encounter Active and Recently Administered Medications Times are shown in EDT. Continuous Medication Order 12/22/2022 12/23/2022 12/24/2022 lactated ringers infusion (CANCELED) 1,000 mL, at 100 mL/hr, Intravenous, CONTINUOUS, Starting on Betty 12/24/22 at 1115, Until Betty 12/24/22 at 1325, Day of Surgery (Day of Procedure) 1154 (New Bag - Prov ider: Jeanette Hutchins CRNA)1233 (Stopped - Provider: Jeanette Hutchins CRNA) documented in this encounter Care Teams Keeler Polygraph Operator Relationship Specialty Start Date End Date Ana Gillespie APRN [address] [place] [address] PCP - General Family Medicine 02/03/19 documented as of this encounter
--- OUTSIDE RECORDS SUMMARY | 2023-12-03 14:56 | XMS_ITS | Encounter Summary ---
Author Organization [facility] Address [facility] [place] [address] Care Team Providers Care Valving Machine Operator Name Role Phone Ana Gillespie VAUGHN Primary Care Provider [phone] Encounter Details Date Type Department Care Team (Latest Contact Info) Description 01/15/2023 Travel Social History Tobacco Use Types Packs/Day [...] PM EDT Appointment Pulmonology at [place] [phone] 12/07/2023 2:00 PM EDT Office Visit Thoracic Surgery at [place] [phone] Geronimo Mojica MD [facility] [place] [address] 12/27/2023 11:30 AM EDT Office Visit Pulmonology at [place] [phone] Noe Cuenca MD [facility] [place] [address] Scheduled Procedures Name Priority Associated Diagnoses Date/Ti me EGD, UPPER GI ENDOSCOPY (WRV U 2.09) Peptic stricture of esophagus documented as of this encounter Visit Diagnoses Not on filedocumented in this encounter Care Teams Valving Machine Operator Relationship Specialty Start Date End Date Ana Gillespie APRN [address] [place] [address] PCP - General Family Medicine 02/03/19 documented as of this encounter
--- OUTSIDE RECORDS SUMMARY | 2023-12-03 14:56 | XMS_ITS | Encounter Summary ---
[place] [address] Care Team Providers Care Leather Cleaner Name Role Phone Ana Gillespie BOAT PATCHER PLASTIC Primary Care Provider [phone] Encounter Details Date Type Department Care Team (Late st Contact Info) Description 03/01/2023 [place] [address] Parris Maravilla Social History Tobacco Use Types [...] * Telephone Encounter - Parris Maravilla - 03/01/2023 12:37 PM EDT Placed outgoing phone call to patient in order to schedule a procedure. Phone Call Outcome: Left voicemail asking for return call. Urgent EGD This was the 1st attempt If the call is returned, it can be handled by: Please park to me documented in this encounter Plan of Treatment Upcoming Encounters Date Type Department Care Team (Late st Contact Info) Description 12/07/2023 1:00 PM EDT [place] [phone] 12/07/2023 2:00 PM EDT Office [place] [address] Geronimo Mojica MD [facility] [place] [address] 12/27/2023 11:30 AM EDT [place] [address] Noe Cuenca MD [facility] PULMONARY MEDICINE [place], [place] [phone] Scheduled Procedures Name Priority Associated Diagnoses Date/Ti me EGD, UPPER GI ENDOSCOPY (WRV U 2.09) Peptic stricture of esophagus documented as of this encounter Visit Diagnoses Not on filedocumented in this encounter Care Teams Leather Cleaner Relationship Specialty Start Date End Date Ana Gillespie APRN [address] [place] [address] PCP - General Family Medicine 02/03/19 documented as of this encounter
--- OUTSIDE RECORDS SUMMARY | 2023-12-03 14:56 | XMS_ITS | Encounter Summary ---
Author Organization [facility] Address [facility] [place] [address] Care Team Providers Care Driver Engineer Name Role Phone Ana Gillespie APRN Primary Care Provider [phone] Encounter Details Date Type Department Care Team (Late st Contact Info) Description 01/12/2023 8:06 AM EDT Anesthesia [place] [address] Bogdan Song MD [facility] [address] [place] [address] Cristine Gomez CRNA [facility] [address] [place] [address] Anesthesia Record Procedure Summary Procedure Name Responsible Anesthesiologist Anesthesia Start Time Anesthesia Stop Time EGD,WITH DILATION ESOPHAGUS WITH BALLOON,< 30 MM (WRVU 2.67) (Trunk) Bogdan Song MD 01/12/23 0806 01/12/23 0920 Events Date Time Event Comment 01/12/2023 0724 0805 AN Verify 0806 Start 0806 An Start Data 0810 An Induction 0811 Anesthesia Ready 0830 An Intubation 0913 Extubation/LMA Out 0915 an stop data 0920 Recovery or ICU Handoff Sayra ent care was transferred to the destination unit staff after review of the patient's medical history, current anesthetic/surgical status and plan, according to the Provider Handoff Checklist. 0920 Stop Meds Name Total IV Lidocaine 70 mg Propofol 290 mg Propofol INF 796.66 mg ePHEDrine 15 mg Succinylcholine 100 mg PHENYLephrine 1,200 mcg lactated ringers infusion 900 mL * Agents Name O2 Auxiliary Flowmeter 1 * Blood No blood administrations on file. Lines, Drains, and Airways Type Details Placement Removal (RETIRED) Peripheral IV Line - Single Lumen 01/12/23; 0745; dorsal arch vein (top of foot), left; [id number] catheter system; Anatomical Landmarks; US Not Used; 22 gauge, 1 in length; distraction, tolerated well; 1; median cubital vein (antecubital fossa), right; 01/12/23; 1008 01/12/23 0745 by Mckenzie Ricardo RN 01/12/23 1008 by Tegan Caballero RN ETT Mask Ventilation: No t Attempted (0); ETT Size: 7 mm; Calderon Blade: 2; Notes: Asleep, Pre-O2, RSI, Cricoid Pressure; Attempts: 1; Laryngoscopy Grade: 1; ETT Placement Verified By: Auscultation, Visual, Capnometry; Secured at Teeth: 22 cm; Inserted by: Kishore MAHMOOD; Removal Date: 01/12/23; Removal Time: 91201/12/23829 by Chiquis Burnham CRNA 01/12/23912 by Chiquis Burnham CRNA documented in this encounter Social History [...] OR Notes * Anesthesia Postprocedure Evaluation - Bogdan Song MD - 01/12/2023 11:46 AM EDT Department of Anesthesiology Post-procedure Note Patient: Jennifer Irving Procedure Summary Date: 01/12/23 Room / Location: [facility] ENDO 2 / [facility] ENDOSCOPY Anesthesia Start: 805 Anesthesia Stop: 919 Procedure: EGD,WITH DILATION ESOPHAGUS WITH BALLOON,< 30 MM (WRVU 2.67) (Trunk) Diagnosis: Peptic stricture of esophagus (peptic stricture - needs dilation under anestheszi in 10-14 days) Surgeons: David Dejesus MD Responsible Provider: Bogdan Song MD Anesthesia Type: MAC ASA Status: 2 All Anesthesia Providers: Anesthesiologist: Bogdan Song MD LICENSED CLUB MANAGER: Chiquis Burnham CRNA Student Nurse Forest Management Teacher: Irwin Novak Vitals Value Taken Time BP 113/54 01/12/23 0955 Temp Pulse Resp 17 01/12/23 0955 SpO2 97 % 01/12/23 0955 Pain Level 0 01/12/23 0940 Patient Location: PACU/[facility] Level of Consciousness: Awake and Alert Pain Management: Satisfactory Analgesia PONV: None Cardiovascular Status: At Baseline and Hemodynamically Stable Respiratory Status: At Baseline and Room Air Postoperative Fluid Status: Intravascular EUvolemia Possible Anesthetic Complications: NONE apparent at time of evaluation Final Primary Anesthesia Type: General (The anesthetic type performed was the same as planned.) Comments: Bogdan Song MD * Anesthesia Preprocedure Evaluation - Bogdan Song MD - 01/08/2023 9:58 AM EDT Images from the original note were not included. Pre-Anesthesia Evaluation for: Jennifer Irving a 62 y.o. female. Procedure(s): E[facility], [facility] Patient Active Problem List Diagnosis Date Noted ??? 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 Bipolar disorder 02/12/2022 ??? BMI 37.0-37.9, adult 12/13/2014 ??? T2DM (type 2 diabetes mellitus) 12/12/2014 ??? GERD (gastroesophageal reflux disease) 03/15/2013 ??? Farrell's esophagus 03/15/2013 Past Medical History: Diagnosis Date ??? Bipolar disorder 02/12/2022 Past Surgical History: Procedure Laterality Date ??? IR G-TUBE CHECK/CHANGE 11/27/2022 IR G-Tube Check/Change 11/27/2022 Hang Cooper PA [facility] INTERVENTIONL RAD ??? IR G-TUBE PLACEMENT 09/11/2022 IR G-Tube Placement 09/11/2022 Moustapha Hart MD [facility] INTERVENTIONL RAD ??? IR SUTURE RELEASE 09/25/2022 IR Suture Release 09/25/2022 Yoselin Ghosh PA [facility] INTERVENTIONL RAD ??? PERCUTANEOUS GASTROSTOMY N/A 09/11/2022 PERCUTANEOUS GASTROSTOMY performed by Aiden Flores MD at [facility] CATY ??? PRO COLONOSCOPY, BIOPSY N/A 03/20/2016 COLONOSCOPY FLEXIBLE, WITH BX performed by David Dejesus MD at [facility] ENDOSCOPY ??? PRO COLONOSCOPY, DIAGNOSTIC N/A 03/01/2020 COLONOSCOPY, DIAGNOSTIC performed by David Dejesus MD at [facility] ENDOSCOPY ??? PRO ENDOSCOPIC US EXAM, ESOPH N/A 03/31/2022 UPPER EUS- ENDOSCOPIC ULTRASOUND performed by David Dejesus MD at [facility] ENDOSCOPY ??? PRO UP GI ENDOSCOPY, BALL DIL, 30MM N/A 12/24/2022 EGD,WITH DILATION ESOPHAGUS WITH BALLOON,< 30 MM (WRVU 2.67) performed by David Dejeuss [facility] ENDOSCOPY ??? PRO UPPER GI ENDOSCOPY, BIOPSY N/A 04/03/2014 UPPER GASTROINTESTINAL ENDOSCOPY,WITH BIOPSY SINGLE OR MULTIPLE performed by David Dejesus [facility] ENDOSCOPY ??? PRO UPPER GI ENDOSCOPY, BIOPSY N/A 03/20/2016 EGD WITH BIOPSY performed by David Dejesus MD at [facility] ENDOSCOPY ??? PRO UPPER GI ENDOSCOPY, BIOPSY N/A 11/22/2018 EGD WITH BIOPSY (WRVU 2.49) performed by David Dejesus MD at [facility] ENDOSCOPY ??? PRO UPPER GI ENDOSCOPY, BIOPSY N/A 03/01/2020 UPPER GASTROINTESTINAL ENDOSCOPY,WITH BIOPSY SINGLE OR MULTIPLE (WRVU 2.49) performed by David Dejesus MD at [facility] ENDOSCOPY ??? PRO UPPER GI ENDOSCOPY, BIOPSY N/A 09/23/2021 EGD WITH BIOPSY (WRVU 2.49) performed by David Dejesus MD at [facility] ENDOSCOPY ??? PRO UPPER GI ENDOSCOPY, BIOPSY N/A 03/31/2022 EGD WITH BIOPSY (WRVU 2.49) performed by David Dejesus MD at [facility] ENDOSCOPY ??? PRO UPPER GI ENDOSCOPY, BIOPSY N/A 07/03/2022 EGD WITH BIOPSY (WRVU 2.49) performed by David Dejesus MD at [facility] ENDOSCOPY ??? PRO UPPER GI ENDOSCOPY, DIAGNOSTIC N/A 04/03/2014 EGD, UPPER GI ENDOSCOPY performed by David Dejesus MD at [facility] ENDOSCOPY ??? PRO UPPER GI ENDOSCOPY, DIAGNOSTIC N/A 03/01/2020 EGD, UPPER GI ENDOSCOPY performed by David Dejesus MD at [facility] ENDOSCOPY ??? PRO UPPER GI ENDOSCOPY, DIAGNOSTIC N/A 09/09/2022 EGD, UPPER GI ENDOSCOPY (WRVU 2.09) performed by Ayo Russ MD at [facility] MAIN OR Social History Tobacco Use ??? Smoking status: Former Years: 11.00 Types: Cigarettes Quit date: 02/26/2021 Years since quittin.8 ??? Smokeless tobacco: Never Substance Use Topics ??? Alcohol use: Not Currently Alcohol/week: 1.0 standard drink Types: 1 Glasses of wine per week Social History Substance and Sexual Activity Drug Use Never Allergies Allergen Reactions ??? Meperidine Hcl CIS - violently ill ??? Metformin Other (See Comments) Severe diarrhea Medications: MAR and/or home medications have been reviewed. Physical Exam: Preprocedure Vitals Current as of 01/08/23 0958 No BP, pulse, respiration, SpO2, or temperature recorded. Height: Weight: BMI: IBW: Airway Assessment: Mallampati: II TM distance: >3 FB Neck ROM: full Cardiovascular Assessment: Rhythm: regular Rate: normal Pulmonary Assessment: unlabored breathing Dental Assessment: Misc Assessment: Patient is wearing No contact(s). IV access: Peripheral line Last Filed Perioperative Cognitive Screening None Anesthesia Plan: ASA 2 MAC, with a(n) intravenous induction Patient is a 62-year-old female w PMH of GERD/Barretts esophagus,T2DM, obesity, and bipolar disorder scheduled for EGD under anesthesia. Tolerated prior endoscopic procedures under MAC Plan MAC w propofol, GA backup Region - Other Informed Consent: Anesthetic plan and risks discussed with patient. Plan discussed with LICENSED CLUB MANAGER and attending. Anesthesia Screening documented in this encounter Plan of Treatment Upcoming Encounters Date Type Department Care Team (Late st Contact Info) Description 12/07/2023 1:00 PM EDT Appointment [place] [address] 12/07/2023 2:00 PM EDT Office [place] [address] Geronimo Mojica MD [facility] [address] THORACIC SURGERY [place], [place] [id number] 12/27/2023 11:30 AM EDT Office [place] [address] Noe Cuenca MD [facility] [place] [address] Scheduled Procedures Name Priority Associated Diagnoses Date/Ti me EGD, UPPER GI ENDOSCOPY (WRV U 2.09) Peptic stricture of esophagus documented as of this encounter Visit Diagnoses Not on filedocumented in this encounter Administered Medications Inactive Administered Medications - up to 3 most recent administrations Medication Order MAR Action Action Date Dose Rate Site ePHEDrine sulfate (5 mg/mL) multi-dose injection Intravenous, PRN, Starting on Wed01/12/23 at 0812, Until Tu01/12/23 at 1145, Anesthesia Intra-op, Routine Given 01/12/2023 8:19 AM EDT 10 mg Given 01/12/2023 8:12 AM EDT 5 mg lactated ringers infusion 100 mL/hr, Intravenous, CONTINUOUS, Starting on Wed01/12/23 at 0745, Until Tu01/12/23 at 1008, Endoscopy (Day of Procedure) Restarted 01/12/2023 9:15 AM EDT New Bag 01/12/2023 7:45 AM EDT 100 mL/hr 100 mL/hr lidocaine (pf) (Xylocaine) (20 mg/mL) 2% injection syringe Intravenous, PRN, Starting on Wed01/12/23 at 0811, Until Tu01/12/23 at 1145, Anesthesia Intra-op, Routine Given 01/12/2023 8:11 AM EDT 70 mg PHENYLephrine in NS (PF) (ROBY-SYNEPHRINE) 0.8 mg/10 mL (80 mcg/mL) multi-dose injection Syringe Intravenous, PRN, Starting on Wed01/12/23 at 0835, Until Wed01/12/23 at 1145, Anesthesia Intra-op, Routine Given 01/12/2023 9:13 AM EDT 80 mcg Given 01/12/2023 9:07 AM EDT 80 mcg Given 01/12/2023 9:02 AM EDT 160 mcg propofoL (Diprivan) (10 mg/mL) infusion Intravenous, CONTINUOUS PRN, Starting on Wed01/12/23 at 0810, Until Wed01/12/23 at 1145, Anesthesia Intra-op, Routine Rate/Dose Change 01/12/2023 8:48 AM EDT 225 mcg/kg/min 88.155 mL/hr Rate/Dose Change 01/12/2023 8:30 AM EDT 150 mcg/kg/min 58. 77 mL/hr New Bag 01/12/2023 8:10 AM EDT 250 mcg/kg/min 97.95 mL/ hr propofoL (Diprivan) 10 mg/mL bolus injection (Anesthesia) Intravenous, PRN, Starting on Wed01/12/23 at 0810, Until Wed01/12/23 at 1145, Anesthesia Intra-op Given 01/12/2023 9:02 AM EDT 30 mg Given 01/12/2023 8:54 AM EDT 30 mg Given 01/12/2023 8:48 AM EDT 30 mg succinylcholine (Anectine;Quelicin) (20 mg/mL) injection Intravenous, PRN, Starting on Wed01/12/23 at 0829, Until 01/12/23 at 1145, Anesthesia Intra-op, Routine Given 01/12/2023 8:29 AM EDT 100 mg documented in this encounter Care Teams Driver Engineer Relationship Specialty Start Date End Date Ana Gillespie APRN [address] [place] [address] PCP - General Family Medicine 02/03/19 documented as of this encounter
--- OUTSIDE RECORDS SUMMARY | 2023-12-03 14:56 | XMS_ITS | Encounter Summary ---
Author Organization [facility] Address [facility] [place] [address] Care Team Providers Care Installations Inspector Name Role Phone Ana Gillespie VAUGHN Primary Care Provider [phone] Reason for Visit * Diagnostic Test (Routine) - Closed Specialty Diagnoses / Procedures Referred By Esperanza rodríguez Referred To Contact Radiology Diagnoses Neuroleptic-induced parkinsonism Procedures IR G-Tube Check/Change IR GJ-Tube Check/Change Fannie Conde PA [facility] INTERVENTIONAL [place] [address] [facility] [place] [address] Referral ID Status Reason Start Date Expiration Date V isits Requested Visits Authorized [id number] Closed Specialty Service Requested 11/23/2022 05/26/2024 1 1 Encounter Details Date Type Department Care Team (Latest Contact Info) Description 11/27/2022 1:04 PM EDT - 11/27/2022 11:59 PM EDT Hospital Encounter [place] [address] Azeem Alarcon MD [facility] DIAGNOSTIC [place] [address] Neuroleptic-induced parkinsonism Discharge Disposition: Home Social History [...] Sign Reading Time Taken Comments Blood Pressure 117/55 11/27/2022 3:10 PM EDT Pulse 77 11/27/2022 2:53 PM EDT Temperature 36.5 ??C (97.7 ??F) 11/27/2022 1:32 PM ED T Respiratory Rate 16 11/27/2022 3:10 PM EDT Oxygen Saturation 95% 11/27/2022 3:10 PM EDT Inhaled Oxygen Concentration - - [...] meter kit. 1 each 0 12/14/2014 Insulin [place], Disposable, (BD INSULIN PEN NEEDLE UF MINI) 31 x 3/16 NeedleIndications:Di abetes mellitus type 2, uncontrolled 1 Device by Mis.(Non-Drug; Combo Route) route 3 times daily as needed. 100 each 11 12/13/2014 ergocalciferoL, vitamin D2, (vitamin D2) 50,000 unit capsule Take 1 capsule by mouth every 14 days. 6 capsule 3 11/20/2022 01/12/2023 insulin isophane- NPH 100 unit/mL (3 mL) Insulin Pen Administer 15 units at start of your feed and 15 units 6 hours into your feed 10 mL 12 09/25/2022 12/08/2022 buPROPion (Wellbutrin) 100 mg tablet 1 tablet [...] as of this encounter Progress Notes * Deepa Belle, RN - 11/27/2022 2:53 PM EDT [facility] NURSING DATABASE Name: Jennifer Irving Date of : 1960 AGE: 62 y.o. Address: [address] [address] (home) Mobile: Telephone Information: Referring Provider: Fannie Conde REASON FOR VISIT: Order Questions Answers Where will study be performed? [facility] Radiology [120] Is the patient on anticoagulant / antiplatelet therapy ? No Reason for exam and clinical history: 62F with chronic pancreatitis, GERD complicated by esophagitis and Farrell's esophagus, G-tube placed (09/11) - now with broken external tubing per 's report. Needs replacement. Planned procedure: Exchange of 16 F G-tube Labs to be performed day of procedure: No labs Sedation: No Sedation Prophylactic antibiotic : None Contrast: Omnipaque Additional medications for procedure: Lido jelly Position: Supine Consent: Scanned Medications to discontinue (and days held): None Case Urgency:: F- Elective OUT-patient intervention within 3 days Allergies Allergen Reactions Meperidine Hcl CIS - violently ill Metformin Other (See Comments) Severe diarrhea Pertinent PMH: Patient Active Problem List Diagnosis Code GERD (gastroesophageal reflux disease) K21.9 Farrell's esophagus K22.70 T2DM (type 2 diabetes mellitus) E11.9 BMI 37.0-37.9, adult Z68.37 Bipolar disorder F31.9 Neuroleptic-induced parkinsonism G21.11 Date/Procedure Meds Given/Comments 09/11/22 Gtube placement ANES 11/27/22 Gtube exchange Local 1447 to procedure room IR 4 via stretcher. Onto table supine. All monitors, O2, safety strap in place. Meds per protocol. Laboratory Results: Lab Results Component Value Date INR 2.0 08/15/2022 Lab Results Component Value Date CREATININE 0.62 (L) 09/25/2022 Lab Results Component Value Date K 4.6 09/25/2022 Lab Results Component Value Date PLATELET 222 09/23/2022 * Chaka Ponce RN - 11/24/2022 9:32 AM EDT ANGIO NURSING DATABASE Name: Jennifer Irving Date of : 1960 AGE: 62 y.o. Address: [address] [address] (home) Mobile: Telephone Information: Referring Provider: Fannie Conde REASON FOR VISIT: Order Questions Answers Where will study be performed? [facility] Radiology [120] Is the patient on anticoagulant / antiplatelet therapy ? No Reason for exam and clinical history: 62F with chronic pancreatitis, GERD complicated by esophagitis and Farrell's esophagus, G-tube placed (09/11) - now with broken external tubing per 's report. Needs replacement. Planned procedure: Exchange of 16 F G-tube Labs to be performed day of procedure: No labs Sedation: No Sedation Prophylactic antibiotic : None Contrast: Omnipaque Additional medications for procedure: Lido jelly Position: Supine Consent: Scanned Medications to discontinue (and days held): None Case Urgency:: F- Elective OUT-patient intervention within 3 days Allergies Allergen Reactions Meperidine Hcl CIS - violently ill Metformin Other (See Comments) Severe diarrhea Pertinent PMH: Patient Active Problem List Diagnosis Code GERD (gastroesophageal reflux disease) K21.9 Farrell's esophagus K22.70 T2DM (type 2 diabetes mellitus) E11.9 BMI 37.0-37.9, adult Z68.37 Bipolar disorder F31.9 Neuroleptic-induced parkinsonism G21.11 Date/Procedure Meds Given/Comments 09/11/22 G tube placement Anesthesia Laboratory Results: Lab Results Component Value Date INR 2.0 08/15/2022 Lab Results Component Value Date CREATININE 0.62 (L) 09/25/2022 Lab Results Component Value Date K 4.6 09/25/2022 Lab Results Component Value Date PLATELET 222 09/23/2022 documented in this encounter Plan of Treatment Upcoming Encounters Date Type Department Care Team (Late st Contact Info) Description 12/07/2023 1:00 PM EDT Appointment [place] [phone] 12/07/2023 2:00 PM EDT Office Visit Thoracic Surgery at [place] [phone] Geronimo Mojica MD [facility] DR TH[place]ACIC [place] [address] 12/27/2023 11:30 AM EDT Office [place] [phone] Noe Cuenca MD [facility] DR PULMONARY [place] [address] Scheduled Procedures Name Priority Associated Diagnoses Date/Ti me EGD, UPPER GI ENDOSCOPY (WRV U 2.09) Peptic stricture of esophagus documented as of this encounter Procedures Procedure Name Priority Date/Time Associated Diagnosis Comments IR G-TUBE CHECK/CHANGE Routine 11/27/2022 3:15 PM EDT Neuroleptic-induced parkinsonism POCT GLUCOSE Routine 11/27/2022 1:25 PM EDT documented in this encounter Results * IR G-Tube Check/Change (11/27/2022 3:15 PM EDT) Anatomical Region Laterality Modality Chest X-Ray Angiograph y Narrative 11/27/2022 4:00 PM EDT Interventional Radiology Procedure Note Procedure: Gastrostomy tube exchange Indication for procedure: Chronic pancreatitis, enteral nutrition dependent, malfunction of G-tube Pre-procedure: Informed consent for the procedure including risks, benefits and alternatives was obtained. Active time-out was performed prior to the procedure. Maximum sterile barrier technique was used throughout the procedure. Method of sedation: None. Pulse, pressure, and oxygen saturation were continuously monitored. Technique: The patient was positioned supine. Product Developer imaging was performed with air injection through indwelling gastrostomy tube. Local anesthetic was administered. A wire was advanced through the indwelling gastrostomy tube and the tube was removed. The new gastrostomy tube was advanced into the stomach, and intragastric position was confirmed with mixed injection of contrast, saline, and air. Retention balloon inflated with 5 mL sterile water. The tube was capped. Clean dressing applied. Medications: Viscous lidocaine topical Estimated blood loss: 1 mL Fluoroscopy: 0.9 mGy Complications: No immediate Specimens: None Impression: Gastrostomy tube exchange with placement of 16 F EnFit G-tube. Service provider: Hang Cooper PA-C Attending of record: Gavin Carrillo MD 11/27/2022 Azeem Alarcon MD G IR ORDERABLES * POCT Glucose (11/27/2022 1:25 PM EDT) POC Glucose 128 65 - 199 mg/dL [facility] Comment: Supplemental ranges: <140 mg/dL before meals <180 mg/dL all other times of the day Blood 11/27/2022 1:25 PM EDT 11/27/2022 1:25 PM EDT Azeem Alarcon MD POINT OF CARE TEST O RDERABLES [facility] [place] [address] documented in this encounter Visit Diagnoses Diagnosis Neuroleptic-induced parkinsonism Secondary Parkinsonism documented in this encounter Care Teams Installations Inspector Relationship Specialty Start Date End Date Ana Gillespie APRN [address] [place] [address] PCP - General Family Medicine 02/03/19 documented as of this encounter
--- OUTSIDE RECORDS SUMMARY | 2023-12-03 14:56 | XMS_ITS | Encounter Summary ---
Author Organization [facility] [place] [address] Care Team Providers Care Helicopter Mechanic Name Role Phone Ana Gillepsie VAUGHN Primary Care Provider [phone] Encounter Details Date Type Department Care Team (Late st Contact Info) Description 12/21/2022 Telephone [place] [address] Jessica Beckman Social History Tobacco [...] * Telephone Encounter - Jessica Beckman - 12/21/2022 8:07 AM EDT Called pt to sched MAC EGD 12/24 at 11:30am per Dr Dejesus-had to [facility] documented in this encounter Plan of Treatment Upcoming Encounters Date Type Department Care Team (Late st Contact Info) Description 12/07/2023 1:00 PM EDT Appointment [place] [phone] 12/07/2023 2:00 PM EDT Office Visit [place] [address] Geronimo Mojica MD [facility] [place] [address] 12/27/2023 11:30 AM EDT Office [place] [phone] Noe Cuenca MD [facility] [place] [address] Scheduled Procedures Name Priority Associated Diagnoses Date/Ti me EGD, UPPER GI ENDOSCOPY (WRV U 2.09) Peptic stricture of esophagus documented as of this encounter Visit Diagnoses Not on filedocumented in this encounter Care Teams Helicopter Mechanic Relationship Specialty Start Date End Date Ana Gillespie APRN [address] [place] [address] PCP - General Family Medicine 02/03/19 documented as of this encounter
--- OUTSIDE RECORDS SUMMARY | 2023-12-03 14:56 | XMS_ITS | Encounter Summary ---
Author Organization [facility] Address [facility] [place] [address] Care Team Providers Care Machining Department Supervisor Name Role Phone Ana Gillespie VAUGHN Primary Care Provider [phone] Reason for Visit * Reason Onset Date Comments Medication Refill 12/08/2022 Jennifer is out of her NPH. Dose has been higher than originally prescribed. Using 20 units at start of feed and now 6 hours into feed. Updated prescription today, Will plan to transfer prescription to PCP moving forward. Encounter Details Date Type Department Care Team ([facility] Contact Info) Description 12/08/2022 Telephone [place] [phone] Elsie Erickson MILIEU TECHNICIAN [facility] [place] [address] Medication Refill (Jennifer is out of her NPH. Dose has been higher than originally prescribed. Using 20 units at start of feed and now 6 hours into feed. Updated prescription today, Will plan to transfer prescription to PCP moving forward. ) Social History Tobacco Use Types Packs/Day Years [...] 12/07/2023 1:00 PM EDT Appointment [place] [phone] 12/07/2023 2:00 PM EDT Office [place] [address] Geronimo Mojica MD [facility] [place] [address] 12/27/2023 11:30 AM EDT Office [place] [phone] Noe Cuenca MD [facility] [place] [address] Scheduled Procedures Name Priority Associated Diagnoses Date/Ti me EGD, UPPER GI ENDOSCOPY (WRV U 2.09) Peptic stricture of esophagus documented as of this encounter Visit Diagnoses Not on filedocumented in this encounter Care Teams Machining Department Supervisor Relationship Specialty Start Date End Date Ana Gillespie APRN [address] [place] [address] PCP - General Family Medicine 02/03/19 documented as of this encounter
--- OUTSIDE RECORDS SUMMARY | 2023-12-03 14:56 | XMS_ITS | Encounter Summary ---
Author Organization [facility] [place] [address] Care Team Providers Care Shipping Room Helper Name Role Phone Ana Gillespie VAUGHN Primary Care Provider [phone] Reason for Visit * Reason Onset Date Comments Triage 02/24/2023 hypotension Encounter Details Date Type Department Care Team (Late st Contact Info) Description 02/24/2023 Telephone Cardiology at [address] [phone] Chela Inman basin finish operator tig welder (hypotension) Social History Tobacco Use Types Packs/Day Years [...] as of this encounter Miscellaneous Notes * Addendum Note - Chela Inman RN - 02/25/2023 9:47 AM EDTAddended by: CHELA INMAN on: 02/25/2023 09:47 AM Modules accepted: Orders * Telephone Encounter - Chela Inman RN - 02/25/2023 9:40 AM EDT Campos, spouse contacted with the following response [...] well. She is thankful for the update. * Telephone Encounter - Chela Inman RN - 02/24/2023 7:20 PM EDT 15:22 call received on the HF Team nurse triage line from CHEKO Gillespie, PCP who saw pt today. She is concerned with pt's low BP 82/55 in clinic today. She is hoping Dr Hernandez would consider cutting back on her BP med(s). She can be reached at [phone]. Call placed to Campos, spouse & career guidance counselor to get more information for Dr Hernandez. Spouse reports that the pt does have no energy, home BP readings have been low at home 73/45 to 90/50. HR in the 60's over the last several weeks. She gets ~ 1.5 liters of fluids via tube feeds daily. Does also sip at ice water and apple juice orally through the day. Med Review: she is taking them as listed except the following changes: Seroquel increased to 100 mg daily Gabapentin 300 mg increased from 1 tab tid to 3 tabs tid. Wellbutrin 100 mg daily to 300 mg daily Valproate acid 250 mg/5 ml 6 ml decreased from qid to tid. Zofran 4 mg via g-tube q 8 hr prn nausea. Med list updated. Questions: What can the pt do to help her BP? documented in this encounter Plan of Treatment Upcoming Encounters Date Type Department Care Team (Late st Contact Info) Description 12/07/2023 1:00 PM EDT Appointment [place] [address] 12/07/2023 2:00 PM EDT Office [place] [address] Geronimo Mojica MD [facility] [place] [address] 12/27/2023 11:30 AM EDT Office [place] [phone] Noe Cuenca MD [facility] [place] [address] Scheduled Procedures Name Priority Associated Diagnoses Date/Ti me EGD, UPPER GI ENDOSCOPY (WRV U 2.09) Peptic stricture of esophagus documented as of this encounter Visit Diagnoses Not on filedocumented in this encounter Care Teams Shipping Room Helper Relationship Specialty Start Date End Date Ana Gillespie APRN [address] [place] [address] PCP - General Family Medicine 02/03/19 documented as of this encounter
--- OUTSIDE RECORDS SUMMARY | 2023-12-03 14:56 | XMS_ITS | Encounter Summary ---
Author Organization [facility] [place] [address] Care Team Providers Care Air Technician Name Role Phone Ana Gillespie APRN Primary Care Provider [phone] Encounter Details Date Type Department Care Team (Late st Contact Info) Description 12/08/2022 Telephone [place] [phone] Alyce Vogt RN Social History Tobacco Use [...] encounter Miscellaneous Notes * Telephone Encounter - Alyce Vogt RN - 12/08/2022 1:19 PM EDT Called pt and spoke to . He states that he has called several time. First time they couldn'tpull up Elsie. The next few times they said they could and sent her a high priority message. I do not see messages in pt chart. I apologized ti Rogelio. Then phone then cut off. I tried to call him back several times and could not get through. * Telephone Encounter - Alyce Vogt RN - 12/08/2022 1:08 PM EDT Copied from CRM #[id number]. Topic: Specialty Dept CRMs - Generic Call >> Dec 08, 2022 12:30 PM Rossy Tejeda wrote: Specialist: Elsie Erickson APRN Relationship (if other than patient-full name): campos Reason for Call: Campos, of patient, is calling very upset because he stated that he has been trying to reach the provider to talk about his wifes insulin for a week. Please call to advise. documented in this encounter Plan of Treatment Upcoming Encounters Date Type Department Care Team (Late st Contact Info) Description 12/07/2023 1:00 PM EDT Appointment Pulmonology at [place] [phone] 12/07/2023 2:00 PM EDT Office Visit Thoracic Surgery at [place] [phone] Geronimo Mojica MD [facility] [place] [address] 12/27/2023 11:30 AM EDT Office Visit [place] [phone] Noe Cuenca MD [facility] [place] [address] Scheduled Procedures Name Priority Associated Diagnoses Date/Ti me EGD, UPPER GI ENDOSCOPY (WRV U 2.09) Peptic stricture of esophagus documented as of this encounter Visit Diagnoses Not on filedocumented in this encounter Care Teams Air Technician Relationship Specialty Start Date End Date Ana Gillespie APRN [address] [place] [address] PCP - General Family Medicine 02/03/19 documented as of this encounter
--- OUTSIDE RECORDS SUMMARY | 2023-12-03 14:56 | XMS_ITS | Encounter Summary ---
Author Organization [facility] Address [facility] [place] [address] Care Team Providers Care Office Chair Assembler Name Role Phone Ana Gillespie APRN Primary Care Provider [phone] Reason for Visit * Reason Onset Date Comments Medication Refill 03/03/2023 Metoprolol Suc cinate, instruction change. Encounter Details Date Type Department Care Team (Late st Contact Info) Description 03/03/2023 Refill Cardiology at [address] [phone] Milagros Hernandez MD [facility] [place] [address] Medication Refill (Metoprolol Succinate, instruction change.) Social History Tobacco Use Types Packs/Day Years [...] Telephone Encounter - Chela Walsh RN - 03/03/2023 6:[address] Hernandez pt is to be taking Metoprolol Succinate 50 mg daily. She can take 1/2 tab bid if she tolerates it better. She is aware that the pt has to crush the med to give via g-tube. Campos, spouse notified and will change from the Metoprolol Tartrate back to the Succinate, when hegets the new prescription. documented in this encounter Plan of Treatment Upcoming Encounters Date Type Department Care Team (Late st Contact Info) Description 12/07/2023 1:00 PM EDT Appoint[place] [address] 12/07/2023 2:00 PM EDT Office [place] [phone] Geronimo Mojica MD [facility] [place] [address] 12/27/2023 11:30 AM EDT Office [place] [phone] Noe Cuenca MD [facility] [place] [address] Scheduled Procedures Name Priority Associated Diagnoses Date/Ti me EGD, UPPER GI ENDOSCOPY (WRV U 2.09) Peptic stricture of esophagus documented as of this encounter Visit Diagnoses Diagnosis HFrEF (heart failure with reduced ejection fraction) documented in this encounter Care Teams Office Chair Assembler Relationship Specialty Start Date End Date Ana Gillespie APRN [address] [place] [address] PCP - General Family Medicine 02/03/19 documented as of this encounter
--- OUTSIDE RECORDS SUMMARY | 2023-12-03 14:56 | XMS_ITS | Encounter Summary ---
[place] [address] Care Team Providers Care Coke Drawer Hand Name Role Phone Ana Gillespie VAUGHN Primary Care Provider Encounter Details Date Type Department Care Team (Late st Contact Info) Description 12/25/2022 Telephone [place] [phone] Parris Maravilla Social History Tobacco Use Types [...] * Telephone Encounter - Parris Maravilla - 12/25/2022 11:46 AM EDT Placed outgoing phone call to patient in order to schedule a procedure. Phone Call Outcome: Left voicemail asking for return call. To schedule urgent EGD This was the 1st attempt If the call is returned, it can be handled by: Please park to me documented in this encounter Plan of Treatment Upcoming Encounters Date Type Department Care Team (Late st Contact Info) Description 12/07/2023 1:00 PM EDT Appointment [place] [phone] 12/07/2023 2:00 PM EDT Office [place] [address] Geronimo Mojica MD [facility] [place] [address] 12/27/2023 11:30 AM EDT Office [place] [phone] Noe Cuenca MD [facility] PULMONARY MEDICINE [place], [place] [phone] Scheduled Procedures Name Priority Associated Diagnoses Date/Ti me EGD, UPPER GI ENDOSCOPY (WRV U 2.09) Peptic stricture of esophagus documented as of this encounter Visit Diagnoses Not on filedocumented in this encounter Care Teams Coke Drawer Hand Relationship Specialty Start Date End Date Ana Gillespie APRN [address] [place] [address] PCP - General Family Medicine 02/03/19 documented as of this encounter
--- OUTSIDE RECORDS SUMMARY | 2023-12-03 14:56 | XMS_ITS | Encounter Summary ---
[place] [address] Care Team Providers Care Pig Casting Machine Operator Name Role Phone Ana Gillespie VAUGHN Primary Care Provider Encounter Details Date Type Department Care Team (Late Contact Info) Description 01/14/2023 Telephone [place] [phone] Juice Maxwell RN Social History [...] Telephone Encounter - Juice Maxwell RN - 01/14/2023 3:39 PM EDT TC from pt's significant other, Campos Irving, wanting to let Dr. Dejesus know that since Jennifer's endoscopic procedure on 01/12/23, she has been able to eat a chocolate pudding cup and an applesauce cup and keep it down without vomiting. Mr. Irving is very happy to witness this with his partner. Encounter forwarded to Dr. Dejesus to review. documented in this encounter Plan of Treatment Upcoming Encounters Date Type Department Care Team (Late Contact Info) Description 12/07/2023 1:00 PM EDT Appointment [place] [address] 12/07/2023 2:00 PM EDT Office Visit [place] [address] Geronimo Mojica MD [facility] [place] [address] 12/27/2023 11:30 AM EDT Office [place] [address] Noe Cuenca MD [facility] [place] [address] Scheduled Procedures Name Priority Associated Diagnoses Date/Ti me EGD, UPPER GI ENDOSCOPY (WRV U 2.09) Peptic stricture of esophagus documented as of this encounter Visit Diagnoses Not on filedocumented in this encounter Care Teams Pig Casting Machine Operator Relationship Specialty Start Date End Date Ana Gillesipe APRN [address] [place] [address] PCP - General Family Medicine 02/03/19 documented as of this encounter
--- OUTSIDE RECORDS SUMMARY | 2023-12-03 14:56 | XMS_ITS | Encounter Summary ---
Author Organization [facility] [place] [address] Care Team Providers Care Abstract Clerk Name Role Phone Ana Gillespie VAUGHN Primary Care Provider [phone] Encounter Details Date Type Department Care Team (Late st Contact Info) Description 12/21/2022 Telephone [place] [phone] Jessica Beckman Social History Tobacco Use Types [...] Telephone Encounter - Jessica Beckman - 12/21/2022 9:11 AM EDT Pt spouse called back. Appt scheduled. documented in this encounter Plan of Treatment Upcoming Encounters Date Type Department Care Team (Late st Contact Info) Description 12/07/2023 1:00 PM EDT Appoint[place] [phone] 12/07/2023 2:00 PM EDT Office [place] [phone] Geronimo Mojica MD [facility] [place] [address] 12/27/2023 11:30 AM EDT [place] [address] Noe Cuenca MD [facility] [place] [address] Scheduled Procedures Name Priority Associated Diagnoses Date/Ti me EGD, UPPER GI ENDOSCOPY (WRV U 2.09) Peptic stricture of esophagus documented as of this encounter Visit Diagnoses Not on filedocumented in this encounter Care Teams Abstract Clerk Relationship Specialty Start Date End Date Ana Gillespie APRN [address] [place] [address] PCP - General Family Medicine 02/03/19 documented as of this encounter
--- OUTSIDE RECORDS SUMMARY | 2023-12-03 14:56 | XMS_ITS | Encounter Summary ---
Author Organization [facility] [place] [address] Care Team Providers Care Sorority Mother Name Role Phone Ana Gillespie APRN Primary Care Provider [phone] Reason for Visit * Reason Onset Date Comments Questions 03/02/2023 Med changes at [facility] visit Encounter Details Date Type Department Care Team (Late st Contact Info) Description 03/02/2023 Telephone Cardiology at [address] [phone] Chela Walsh RN Questions (Med changes at recent hospital visit) Social History Tobacco Use Types Packs/Day Years [...] Encounter - Chela Walsh RN - 03/03/2023 6:49 PM EDT Call placed to Campos, spouse with the following response from Dr Hernandez: She should stay off the spironolactone and be put back on metoprolol succinate, which will have more even coverage and has better evidence for benefit than tartrate which should really only be used for dose titration. Updated rx pended to Dr Hernandez in a separate refill encounter. Campos verbalized good understanding of the med change. * Telephone Encounter - Chela Walsh RN - 03/02/2023 1:34 PM EDT Campos, spouse calling to report that the pt was in the hospital over the past weekend at [facility] for pneumonia. While there they restarted the Spironolactone (was stopped d/t low BP at home) and changed the Metoprolol Succinate 50 mg q pm to Metoprolol Tartrate 25 mg bid. They felt it was too much for her at one time, especially since the med is being crushed for her to get via her G-tube. She has been home for the past 2 days. He has not been giving her the Spironolactone but has changed the Metoprolol to the tartrate 25 mg bid. Her home BP readings yesterday were 91/60 & 90/52, HR has been ing the 60's. She is feeling well. Questions: Should she stay off the Spironolactone? Should she continue the Metoprolol Tartrate 25 mg bid? documented in this encounter Plan of Treatment Upcoming Encounters Date Type Department Care Team (Late st Contact Info) Description 12/07/2023 1:00 PM EDT Appointment [place] [address] 12/07/2023 2:00 PM EDT Office Visit [place] [address] Geronimo Mojica MD [facility] [place] [address] 12/27/2023 11:30 AM EDT Office [place] [phone] Noe Cuenca MD [facility] [place] [address] Scheduled Procedures Name Priority Associated Diagnoses Date/Ti va EGD, UPPER GI ENDOSCOPY (WRV U 2.09) Peptic stricture of esophagus documented as of this encounter Visit Diagnoses Not on filedocumented in this encounter Care Teams Sorority Mother Relationship Specialty Start Date End Date Ana Gillespie APRN [address] [place] [address] PCP - General Family Medicine 02/03/19 documented as of this encounter
--- OUTSIDE RECORDS SUMMARY | 2023-12-03 14:56 | XMS_ITS | Encounter Summary ---
Author Organization [facility] Address [facility] [place] [address] Care Team Providers Care Museum Technician Name Role Phone Ana Gillespie APRN Primary Care Provider [phone] Encounter Details Date Type Department Care Team (Late st Contact Info) Description 12/24/2022 11:54 AM EDT Anesthesia Event [place] [phone] Tim Wagner MD [facility] [place] [address] Jeanette Hutchins CRNA [facility] [place] [address] Anesthesia Record Procedure Summary Procedure Name Responsible Anesthesiologist Anesthesia Start Time Anesthesia Stop Time EGD,WITH DILATION ESOPHAGUS WITH BALLOON,< 30 MM (WRVU 2.67) (Trunk) Tim Wagner MD 12/24/22 1154 12/24/22 1238 Events Date Time Event Comment 12/24/2022 1117 1150 Break/Relief In I assumed ca re for Break Relief before which we: 1. Identified the patient 2. Identified the responsible provider(s) 3. Reviewed the pertinent medical history 4. Discussed the surgical plan and course 5. Reviewed intra-op anesthesia management and issues during anesthesia 6. Set expectations for the relief (and/or post-procedure) period 7. Allowed opportunity for questions and acknowledgement of understanding Socorro Hahn CRNA 1154 AN Verify 1154 Start 1156 An Start Data 1204 An Induction 1204 Anesthesia Ready 1225 Break/Relief Out 1237 an stop data 1238 Recovery or ICU Handoff Sayra ent care was transferred to the destination unit staff after review of the patient's medical history, current anesthetic/surgical status and plan, according to the Provider Handoff Checklist. 1238 Stop Meds Name Total IV Lidocaine 50 mg Propofol 80 mg Propofol INF 218.4 mg Dexmedetomidine 8 mcg Benzocaine 20% [place] 1 spray PHENYLephrine 720 mcg ePHEDrine 40 mg lactated ringers infusion 600 mL * Agents Name O2 Air N2O O2 Auxiliary Flowmeter 1 * Blood No blood administrations on file. Lines, Drains, and Airways Type Details Placement Removal (RETIRED) Peripheral IV Line - Single Lumen 12/24/22; 1108; dorsal arch vein (top of hand), left; giqp-pxp-qrpnyy catheter system; 22 gauge; Antonia Proctor RN; 12/24/22; 1325 12/24/22 1108 by Fidencio Proctor RN 12/24/22 1325 by Dottie Cintron RN documented in this encounter Social History [...] OR Notes * Anesthesia Postprocedure Evaluation - Tim Wagner MD - 12/24/2022 12:59 PM EDT Department of Anesthesiology Post-procedure Note Patient: Jennifer Irving Procedure Summary Date: 12/24/22 Room / Location: [facility] ENDO 3 / [facility] ENDOSCOPY Anesthesia Start: 1154 Anesthesia Stop: 1238 Procedure: EGD,WITH DILATION ESOPHAGUS WITH BALLOON,< 30 MM (WRVU 2.67) (Trunk) Diagnosis: Covington's esophagus without dysplasia (covington's; stricture) Surgeons: David Dejesus MD Responsible Provider: Tim Wagner MD Anesthesia Type: general ASA Status: 2 All Anesthesia Providers: Anesthesiologist: Tim Wagner MD RELEASE ENGINEER: Jeanette Hutchins CRNA Vitals Value Taken Time BP 83/43 12/24/22 1255 Temp Pulse Resp SpO2 95 % 08/17/23 1259 Pain Level Vitals shown include unvalidated device data. Patient Location: PACU/UTP Level of Consciousness: Conscious but Sleepy Pain Management: Satisfactory Analgesia PONV: None Cardiovascular Status: Hemodynamically Stable Respiratory Status: Stable Respiratory Status Postoperative Fluid Status: Intravascular EUvolemia Possible Anesthetic Complications: NONE apparent at time of evaluation Final Primary Anesthesia Type: General (The anesthetic type performed was the same as planned.) Comments: * Anesthesia Preprocedure Evaluation - Tim Wagner MD - 12/24/2022 6:24 AM EDT Pre-Anesthesia Evaluation for: Jennifer Irving a 62 y.o. female. 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 Bipolar disorder 02/12/2022 BMI 37.0-37.9, adult 12/13/2014 T2DM (type 2 diabetes mellitus) 12/12/2014 GERD (gastroesophageal reflux disease) 03/15/2013 Covington's esophagus 03/15/2013 Past Medical History: Diagnosis Date Bipolar disorder 02/12/2022 Past Surgical History: Procedure Laterality Date IR G-TUBE CHECK/CHANGE 11/27/2022 IR G-Tube Check/Change 11/27/2022 Hang Cooper PA [facility] INTERVENTIONL RAD IR G-TUBE PLACEMENT 09/11/2022 IR G-Tube Placement 09/11/2022 Moustapha Hart MD [facility] INTERVENTIONL RAD IR SUTURE RELEASE 09/25/2022 IR Suture Release 09/25/2022 Yoselin Ghosh PA [facility] INTERVENTIONL RAD PERCUTANEOUS GASTROSTOMY N/A 09/11/2022 PERCUTANEOUS GASTROSTOMY performed by Aiden Flores MD at [facility] CATY PRO COLONOSCOPY, BIOPSY N/A 03/20/2016 COLONOSCOPY FLEXIBLE, WITH BX performed by David Dejesus MD at [facility] ENDOSCOPY PRO COLONOSCOPY, DIAGNOSTIC N/A 03/01/2020 COLONOSCOPY, DIAGNOSTIC performed by David Dejesus MD at [facility] ENDOSCOPY PRO ENDOSCOPIC US EXAM, ESOPH N/A 03/31/2022 UPPER EUS- ENDOSCOPIC ULTRASOUND performed by David Dejesus MD at [facility] ENDOSCOPY PRO UPPER GI ENDOSCOPY, BIOPSY N/A 04/03/2014 UPPER GASTROINTESTINAL ENDOSCOPY,WITH BIOPSY SINGLE OR MULTIPLE performed by David Dejesus MDat [facility] ENDOSCOPY PRO UPPER GI ENDOSCOPY, BIOPSY N/A 03/20/2016 EGD WITH BIOPSY performed by David Dejesus MD at [facility] ENDOSCOPY PRO UPPER GI ENDOSCOPY, BIOPSY N/A 11/22/2018 EGD WITH BIOPSY (WRVU 2.49) performed by David Dejesus MD at [facility] ENDOSCOPY PRO UPPER GI ENDOSCOPY, BIOPSY N/A 03/01/2020 UPPER GASTROINTESTINAL ENDOSCOPY,WITH BIOPSY SINGLE OR MULTIPLE (WRVU 2.49) performed by David Dejesus MD at [facility] ENDOSCOPY PRO UPPER GI ENDOSCOPY, BIOPSY N/A 09/23/2021 EGD WITH BIOPSY (WRVU 2.49) performed by David Dejesus MD at [facility] ENDOSCOPY PRO UPPER GI ENDOSCOPY, BIOPSY N/A 03/31/2022 EGD WITH BIOPSY (WRVU 2.49) performed by David Dejesus MD at [facility] ENDOSCOPY PRO UPPER GI ENDOSCOPY, BIOPSY N/A 07/03/2022 EGD WITH BIOPSY (WRVU 2.49) performed by David Dejesus MD at [facility] ENDOSCOPY PRO UPPER GI ENDOSCOPY, DIAGNOSTIC N/A 04/03/2014 EGD, UPPER GI ENDOSCOPY performed by David Dejesus MD at [facility] ENDOSCOPY PRO UPPER GI ENDOSCOPY, DIAGNOSTIC N/A 03/01/2020 EGD, UPPER GI ENDOSCOPY performed by David Dejesus MD at [facility] ENDOSCOPY PRO UPPER GI ENDOSCOPY, DIAGNOSTIC N/A 09/09/2022 EGD, UPPER GI ENDOSCOPY (WRVU 2.09) performed by Ayo Russ MD at [facility] MAIN OR Social History Tobacco Use Smoking status: Former Years: 11.00 Types: Cigarettes Quit date: 02/26/2021 Years since quittin.8 Smokeless tobacco: Never Substance Use Topics Alcohol use: Not Currently Alcohol/week: 1.0 standard drink Types: 1 Glasses of wine per week Social History Substance and Sexual Activity Drug Use Never Allergies Allergen Reactions Meperidine Hcl CIS - violently ill Metformin Other (See Comments) Severe diarrhea Medications: MAR and/or home medications have been reviewed. Physical Exam: Preprocedure Vitals Current as of 12/24/22 0624 No BP, pulse, respiration, SpO2, or temperature recorded. Height: Weight: BMI: IBW: Airway Assessment: Mallampati: I TM distance: >3 FB Neck ROM: full Cardiovascular Assessment: system normal Pulmonary Assessment: pulmonary exam normal Dental Assessment: Misc Assessment: IV access: Peripheral line None Anesthesia Plan: ASA 2 general, with a(n) intravenous induction Medical record reviewed. Hx notable for GERD/Barretts esophagus,T2DM, obesity, bipolar disorder. No contraindication to proceeding Region - Other Informed Consent: Anesthetic plan and risks discussed with patient. Plan discussed with RELEASE ENGINEER and attending. Anesthesia Screening documented in this encounter Plan of Treatment Upcoming Encounters Date Type Department Care Team (Late st Contact Info) Description 12/07/2023 1:00 PM EDT Appointment [place] [phone] 12/07/2023 2:00 PM EDT Office [place] [phone] Geronimo Mojica MD [facility] DR [place]AC[place] [address] 12/27/2023 11:30 AM EDT Office [place] [phone] Noe Cuenca MD [facility] DR [place]MON[place] [address] Scheduled Procedures Name Priority Associated Diagnoses Date/Ti me EGD, UPPER GI ENDOSCOPY (WRV U 2.09) Peptic stricture of esophagus documented as of this encounter Visit Diagnoses Not on filedocumented in this encounter Administered Medications Inactive Administered Medications - up to 3 most recent administrations Medication Order MAR Action Action Date Dose Rate Site benzocaine (Hurricane One) 20% spray (restricted to gavin-procedural use) Oral, PRN, Starting on Betty 12/24/22 at 1204, Until Betty 12/24/22 at 1238, Anesthesia Intra-op Given 12/24/2022 12:04 PM EDT 1 spray dexmedeTOMIDine (Precedex) (4 mcg/mL) bolus injection (Anesthsia) Intravenous, PRN, Starting on Betty 12/24/22 at 1204, Until Betty 12/24/22 at 1238, Anesthesia Intra-op, Routine Given 12/24/2022 12:04 PM EDT 8 mcg ePHEDrine sulfate (5 mg/mL) multi-dose injection Intravenous, PRN, Starting on Betty 12/24/22 at 1210, Until Betty 12/24/22 at 1238, Anesthesia Intra-op, Routine Given 12/24/2022 12:33 PM EDT 10 mg Given 12/24/2022 12:23 PM EDT 10 mg Given 12/24/2022 12:16 PM EDT 10 mg lactated ringers infusion 1,000 mL, at 100 mL/hr, Intravenous, CONTINUOUS, Starting on Betty 12/24/22 at 1115, Until Betty 12/24/22 at 1325, Day of Surgery (Day of Procedure) New Bag 12/24/2022 11:54 AM EDT lidocaine (pf) (Xylocaine) (20 mg/mL) 2% injection syringe Intravenous, PRN, Starting on Betty 12/24/22 at 1204, Until Betty 12/24/22 at 1238, Anesthesia Intra-op, Routine Given 12/24/2022 12:04 PM EDT 50 mg PHENYLephrine in NS (PF) (ROBY-SYNEPHRINE) 0.8 mg/10 mL (80 mcg/mL) multi-dose injection Syringe Intravenous, PRN, Starting on Betty 12/24/22 at 1204, Until Betty 12/24/22 at 1238, Anesthesia Intra-op, Routine Given 12/24/2022 12:33 PM EDT 160 mcg Given 12/24/2022 12:32 PM EDT 80 mcg Given 12/24/2022 12:23 PM EDT 160 mcg propofoL (Diprivan) (10 mg/mL) infusion Intravenous, CONTINUOUS PRN, Starting on Betty 12/24/22 at 1204, Until Betty 12/24/22 at 1238, Anesthesia Intra-op, Routine Rate/Dose Change 12/24/2022 12:14 PM EDT 100 mcg/kg/min 39 mL/hr Rate/Dose Change 12/24/2022 12:10 PM EDT 120 mcg/kg/min 46 .8 mL/hr New Bag 12/24/2022 12:04 PM EDT 180 mcg/kg/min 70.2 mL/ hr propofoL (Diprivan) 10 mg/mL bolus injection (Anesthesia) Intravenous, PRN, Starting on Betty 12/24/22 at 1204, Until Betty 12/24/22 at 1238, Anesthesia Intra-op Given 12/24/2022 12:04 PM EDT 80 mg documented in this encounter Care Teams Museum Technician Relationship Specialty Start Date End Date Ana Gillespie APRN [address] [place] [address] PCP - General Family Medicine 02/03/19 documented as of this encounter
--- OUTSIDE RECORDS SUMMARY | 2023-12-03 14:56 | XMS_ITS | Encounter Summary ---
Author Organization [facility] Address [facility] [place] [address] Care Team Providers Care Deliverer Merchandise Name Role Phone Ana Gillespie APRN Primary Care Provider [phone] Encounter Details Date Type Department Care Team (Late st Contact Info) Description 03/09/2023 Notes [place] [phone] Masha Adkins MD [facility] [place] [address] Social History Tobacco Use Types Packs/Day Years [...] as of this encounter Progress Notes * Masha Adkins MD - 03/09/2023 3:06 PM EDT RADIOLOGY TELEPHONE NOTE Patient: Jennifer Irving : 1960 Person Placing Call: Patient Person Receiving Call: Masha Adkins MD Date of call: 03/09/2023 Time of call: 3:00PM Recent Procedure: Gastrostomy tube exchange 11/27/22 Reason for call: Concern for loose G tube. Patient called with concern that the G tube hub/ring is hovering approximately 0.5 cm from the skin. No leakage around tube site. No erythema or other sign of infections. Assessment: 62 y.o. female w/ G-tube in setting of dysphagia and Farrell's with esophageal strictures. Now with concern for loosening at ostomy. Plan/Instructions: -Order for site check placed. Patient's in agreement with plan. Masha Teran) Lucille MARTE Dehydration Plant Operator PGY4 documented in this encounter Plan of Treatment Upcoming Encounters Date Type Department Care Team (Late st Contact Info) Description 12/07/2023 1:00 PM EDT Appointment [place] [phone] 12/07/2023 2:00 PM EDT Office [place] [phone] Geronimo Mojica MD [facility] [place] [address] 12/27/2023 11:30 AM EDT Office [place] [phone] Noe Cuenca MD [facility] [place] [address] Scheduled Orders Name Type Priority Associated Diagnoses Orde r Schedule IR Site Check In Recovery Room Imaging Routine Once PRN (for Ra diant use) for 1 Occurrences starting 03/09/2023 until 03/09/2023 Scheduled Procedures Name Priority Associated Diagnoses Date/Ti me EGD, UPPER GI ENDOSCOPY (WRV U 2.09) Peptic stricture of esophagus documented as of this encounter Visit Diagnoses Diagnosis Farrell's esophagus with high grade dysplasia Farrell's esophagus documented in this encounter Care Teams Deliverer Merchandise Relationship Specialty Start Date End Date Ana Gillespie APRN [address] [place] [address] PCP - General Family Medicine 02/03/19 documented as of this encounter
--- OUTSIDE RECORDS SUMMARY | 2023-12-03 14:56 | XMS_ITS | Encounter Summary ---
Author Organization [facility] [place] [address] Care Team Providers Care Assignment Agent Name Role Phone Ana Gillespie APRN Primary Care Provider [phone] Encounter Details Date Type Department Care Team (Late Contact Info) Description 02/26/2023 Orders [place] [phone] David Dejesus MD [facility] [place] [address] Peptic stricture of esophagus Social History Tobacco [...] 12/07/2023 1:00 PM EDT [place]oint[place] [phone] 12/07/2023 2:00 PM EDT Office [place] [phone] Geronimo Mojica MD [facility] [place] [address] 12/27/2023 11:30 AM EDT [place] [phone] Noe Cuenca MD [facility] [place] [address] Scheduled Orders Name Type Priority Associated Diagnoses Orde r Schedule ENDOSCOPY CASE REQUEST: EGD, UPPER GI ENDOSCOPY (WRVU 2.09) Procedures Routine Peptic stricture of esophagus Ordered: 02/26/2023 Scheduled Procedures Name Priority Associated Diagnoses Date/Ti me EGD, UPPER GI ENDOSCOPY (WRV U 2.09) Peptic stricture of esophagus documented as of this encounter Visit Diagnoses Diagnosis Peptic stricture of esophagus Stricture and stenosis of esophagus documented in this encounter Care Teams Assignment Agent Relationship Specialty Start Date End Date Ana Gillespie APRN [address] [place] [address] PCP - General Family Medicine 02/03/19 documented as of this encounter
--- OUTSIDE RECORDS SUMMARY | 2023-12-03 14:56 | XMS_ITS | Encounter Summary ---
Author Organization [facility] Address [facility] [place] [address] Care Team Providers Care Urinalysis Technician Name Role Phone Ana Gillespie VAUGHN Primary Care Provider Encounter Details Date Type Department Care Team (Latest Contact Info) Description 12/24/2022 9:38 AM EDT - 12/24/2022 1:43 PM EDT Hospital En[place] [phone] David Dejesus MD [facility] [place] [address] Discharge Disposition: Home Social History Tobacco Use [...] Sign Reading Time Taken Comments Blood Pressure 117/66 12/24/2022 1:20 PM EDT pt able to ambulate to toilet with walker Pulse 62 12/24/2022 10:50 AM EDT Temperature 36.2 ??C (97.2 ??F) 12/24/2022 1 0:50 AM EDT Respiratory Rate - - Oxygen Saturation 96% 12/24/2022 1:1 0 PM EDT Inhaled Oxygen Concentration - - [...] 1 tablet by mouth daily. 90 tablet 09/25/2022 ferrous sulfate 300 mg (60 mg [...] 180 tablet 3 10/20/2021 Blood Sugar Diagnostic (Where ULTRA TEST) StripIndications:Typ e 2 diabetes mellitus, [...] meter kit. 1 each 0 12/14/2014 Insulin [place], Disposable, (BD INSULIN PEN NEEDLE UF MINI) 31 x 07/23 NeedleIndications:Di abetes mellitus type 2, uncontrolled 1 Device by [facility].(Non-Drug; Combo Route) route [...] glucose meter kit. 1 each 0 Insulin [place], Disposable, (BD INSULIN PEN NEEDLE UF MINI) 31 x 3/16 Needle 1 Device by Misc.(Non-Drug; Combo Route) route 3 times daily as needed. 100 each 11 PHYSICAL EXAM: Blood pressure 110/57, pulse 62, temperature 36.2 ??C (97.2 ??F), temperature source Tympanic, PeM640 %. GEN: Alert, cooperative. Pleasant. In NAD [...] 12/07/2023 1:00 PM EDT Appointment [place] [phone] 12/07/2023 2:00 PM EDT Office [place] [phone] Geronimo Mojica MD [facility] [place] [address] 12/27/2023 11:30 AM EDT Office [place] [phone] Noe Cuenca MD [facility] [place] [address] Scheduled Procedures Name Priority Associated Diagnoses Date/Ti me EGD, UPPER GI ENDOSCOPY (WRV U 2.09) Peptic stricture of esophagus documented as of this encounter Procedures Procedure Name Priority Date/Time Associated Diagnosis Comments Up Gi Endoscopy, Rick Chavez, 30Mm (05033) 12/24/2022 11:56 AM EDT Farrell's esophagus without dysplasia UPPER GI ENDOSCOPY Routine 12/24/2022 11 :46 AM EDT POCT GLUCOSE Routine 12/24/2022 11:02 AM EDT documented in this encounter Results * UPPER GI ENDOSCOPY (12/24/2022 11:46 AM EDT) UPPER GI ENDOSCOPY [facility] Endoscopy Procedure Date: 12/24/2022 11:46 AM ? Patient Name: Jennifer Irving ? Date of : 1960 ? Age: 62 ? Order #: [id number] ? Instrument Name: [id number] ? Procedure: ? Upper GI endoscopy Indications: [...] GENERAL SURGICAL ORD ERABLES Performing Organization Address [facility] [address]/[facility] Co de Phone Number PROVATION * POCT Glucose (12/24/2022 11:02 AM EDT) POC Glucose 123 65 - 199 mg/dL [facility] Comment: Supplemental ranges: <140 mg/dL before meals <180 mg/dL all other times of the day Blood 12/24/2022 11:0 2 AM EDT 12/24/2022 11:02 AM EDT David Dejesus MD POINT OF CARE TEST ORDERABLES Performing Organization Address [facility] [address]/[facility] Co de Phone Number [facility] [place] [address] documented in this encounter Visit Diagnoses Not [...] CRNA) documented in this encounter Care Teams Urinalysis Technician Relationship Specialty Start Date End Date Ana Gillespie APRN [address] [place] [address] PCP - General Family Medicine 02/03/19 documented as of this encounter
--- OUTSIDE RECORDS SUMMARY | 2023-12-03 14:56 | XMS_ITS | Encounter Summary ---
Author Organization Counts Include [facility] Address [facility] [place] [address] Care Team Providers Care Mobile Ui Developer Name Role Phone Ana Gillespie APRN Primary Care Provider [phone] Encounter Details Date Type Department Care Team (Late st Contact Info) Description 02/26/2023 2:07 PM EDT Anesthesia [place] [phone] Rio Aceves MD [facility] [place] [address] Adrianna Barron MD [facility] [place] [address] Anesthesia Record Procedure Summary Procedure Name Responsible Anesthesiologist Anesthesia Start Time Anesthesia Stop Time EGD,WITH DILATION ESOPHAGUS WITH BALLOON,< 30 MM (WRVU 2.67) (Trunk) Rio Aceves MD 02/26/23 1407 02/26/23 1439 Events Date Time Event Comment 02/26/2023 1341 1407 AN Verify 1407 Start 1407 An Start Data 1411 An Induction 1411 Anesthesia Ready 1426 an stop data 1439 Recovery or ICU Handoff Sayra ent care was transferred to the destination unit staff after review of the patient's medical history, current anesthetic/surgical status and plan, according to the Provider Handoff Checklist. 1439 Stop Meds Name Total Propofol INF 153.46 mg ePHEDrine 10 mg Lactated Ringers 450 mL * Agents No agents on file. * Blood No blood administrations on file. Lines, Drains, and Airways Type Details Placement Removal PIV 02/26/23; 1332; 22 g auge; B Franki RN; 02/26/23; 1535 02/26/23 1332 by Gaby Doan RN 02/26/23 1535 by Eligio Sadler RN documented in this encounter Social History [...] Postprocedure Evaluation - Rio Aceves MD - 02/26/2023 3:06 PM EDT Department of Anesthesiology Post-procedure Note Patient: Jennifer Irving Procedure Summary Date: 02/26/23 Room / Location: [facility] ENDO 2 / [facility] ENDOSCOPY Anesthesia Start: 1407 Anesthesia Stop: 1439 Procedure: EGD,WITH DILATION ESOPHAGUS WITH BALLOON,< 30 MM (WRVU 2.67) (Trunk) Diagnosis: Peptic stricture of esophagus (peptic stricture dilation - within two weeks) Surgeons: David Dejesus MD Responsible Provider: Rio Aceves MD Anesthesia Type: MAC ASA Status: 3 All Anesthesia Providers: Anesthesiologist: Rio Aceves MD CASER UP: Tapan Simpson CRNA Vitals Value Taken Time BP 115/50 02/26/23 1503 Temp Pulse Resp 16 02/26/23 1435 SpO2 95 % 02/26/23 1505 Pain Level 0 02/26/23 1435 Vitals shown include unfiled device data. Patient Location: PACU/[facility] Level of Consciousness: Awake and Alert Pain Management: Satisfactory Analgesia PONV: None Cardiovascular Status: Hemodynamically Stable and At Baseline Respiratory Status: At Baseline and Room Air Postoperative Fluid Status: Intravascular EUvolemia Possible Anesthetic Complications: NONE apparent at time of evaluation Final Primary Anesthesia Type: MAC (The anesthetic type performed was the same as planned.) Comments: * Anesthesia Preprocedure Evaluation - Rio Aceves MD - 02/26/2023 1:37 PM EDT Images from the original note [...] IR G-Tube Check/Change 11/27/2022 Hang Cooper PA [facility] INTERVENTIONL RAD ??? IR G-TUBE PLACEMENT 09/11/2022 IR G-Tube Placement 09/11/2022 Moustapha Hart MD [facility] INTERVENTIONL RAD ??? IR SUTURE RELEASE 09/25/2022 IR Suture Release 09/25/2022 Yoselin Ghosh PA [facility] INTERVENTIONL RAD ??? PERCUTANEOUS GASTROSTOMY N/A 09/11/2022 PERCUTANEOUS GASTROSTOMY performed by Aiden Flores MD at [facility] CATY ??? PRO COLONOSCOPY, BIOPSY N/A 03/20/2016 COLONOSCOPY FLEXIBLE, WITH BX performed by David Dejesus MD at [facility] ENDOSCOPY ??? PRO COLONOSCOPY, DIAGNOSTIC N/A 03/01/2020 COLONOSCOPY, DIAGNOSTIC performed by David Dejesus MD at [facility] ENDOSCOPY ??? PRO ENDOSCOPIC US EXAM, ESOPH N/A 03/31/2022 UPPER EUS- ENDOSCOPIC ULTRASOUND performed by David Dejesus MD at [facility] ENDOSCOPY ??? PRO UP GI ENDOSCOPY, BALL DIL, 30MM N/A 12/24/2022 EGD,WITH DILATION ESOPHAGUS WITH BALLOON,< 30 MM (WRVU 2.67) performed by David Dejesus MDat [facility] ENDOSCOPY ??? PRO UP GI ENDOSCOPY, BALL DIL, 30MM N/A 01/12/2023 EGD,WITH DILATION ESOPHAGUS WITH BALLOON,< 30 MM (WRVU 2.67) [facility]?? PRO UPPER GI ENDOSCOPY, BIOPSY N/A 04/03/2014 UPPER GASTROINTESTINAL ENDOSCOPY,WITH BIOPSY SINGLE OR MULTIPLE performed by David [facility]jesus MDat [facility] ENDOSCOPY ??? PRO UPPER GI ENDOSCOPY, BIOPSY N/A 03/20/2016 EGD WITH BIOPSY performed by David Dejesus MD at [facility] ENDOSCOPY ??? PRO UPPER GI ENDOSCOPY, BIOPSY N/A 11/22/2018 EGD WITH BIOPSY (WRVU 2.49) performed by David Dejesus MD at [facility] ENDOSCOPY ??? PRO UPPER GI ENDOSCOPY, BIOPSY N/A 03/01/2020 UPPER GASTROINTESTINAL ENDOSCOPY,WITH BIOPSY SINGLE OR MULTIPLE (WRVU 2.49) performed by David Dejesus MD at [facility] ENDOSCOPY ??? PRO UPPER GI ENDOSCOPY, BIOPSY N/A 09/23/2021 EGD WITH BIOPSY (WRVU 2.49) performed by David Dejesus MD at [facility] ENDOSCOPY ??? PRO UPPER GI ENDOSCOPY, BIOPSY N/A 03/31/2022 EGD WITH BIOPSY (WRVU 2.49) performed by David Dejesus MD at [facility] ENDOSCOPY ??? PRO UPPER GI ENDOSCOPY, BIOPSY N/A 07/03/2022 EGD WITH BIOPSY (WRVU 2.49) performed by David Dejesus MD at [facility] ENDOSCOPY ??? PRO UPPER GI ENDOSCOPY, DIAGNOSTIC N/A 04/03/2014 EGD, UPPER GI ENDOSCOPY performed by David Dejesus MD at [facility] ENDOSCOPY ??? PRO UPPER GI ENDOSCOPY, DIAGNOSTIC N/A 03/01/2020 EGD, UPPER GI ENDOSCOPY performed by David Dejesus MD at [facility] ENDOSCOPY ??? PRO UPPER GI ENDOSCOPY, DIAGNOSTIC N/A 09/09/2022 EGD, UPPER GI ENDOSCOPY (WRVU 2.09) performed by Ayo Russ MD at [facility] MAIN OR Social History Tobacco [...] Physical Exam: Preprocedure Vitals Current as of 02/26/23 1337 BP: 92/52 Pulse: 51 Resp: 18 SpO2: 91 Temp: 36.8 ??C (98.2 ??F) Height: Weight: BMI: IBW: Last edited 02/26/23 1304 by BW Airway Assessment: Mallampati: II TM distance: >3 FB Neck ROM: full Cardiovascular Assessment: Rate: normal Pulmonary Assessment: unlabored breathing Dental Assessment: Misc Assessment: IV access: Peripheral line Last Filed Perioperative Cognitive Screening None Anesthesia Plan: ASA 3 MAC, with a(n) intravenous induction 62 y/o woman with a PMH of esophageal stricture, cardiomyopathy (EF 32%) here for EGD/dilation. Tolerated multiple prior procedures with MAC. Required ETT for prior procedure due to food in esophagus, but states she has been on TFs for the past month with only water and occasional pudding/applesauce since (none for >48 hrs). Plan for MAC, GA backup. Region - Other Informed Consent: Anesthetic plan and risks discussed with patient and spouse. Plan discussed with CASER UP and attending. Anesthesia Screening documented in this encounter Plan of Treatment Upcoming Encounters Date Type Department Care Team (Late st Contact Info) Description 12/07/2023 1:00 PM EDT [place]oint[place] [phone] 12/07/2023 2:00 PM EDT Office [place] [phone] Geronimo Mojica MD [facility] [place] [address] 12/27/2023 11:30 AM EDT Office Visit Pulmonology at [facility] [place] [address] Noe Cuenca MD [facility] [place] [address] Scheduled Procedures Name Priority Associated Diagnoses Date/Ti me EGD, UPPER GI ENDOSCOPY (WRV U 2.09) Peptic stricture of esophagus documented as of this encounter Visit Diagnoses Not on filedocumented in this encounter Administered Medications Inactive Administered Medications - up to 3 most recent administrations Medication Order MAR Action Action Date Dose Rate Site ePHEDrine sulfate (5 mg/mL) multi-dose injection Intravenous, PRN, Starting on Wed02/26/23 at 1439, Until Wed02/26/23 at 1439, Anesthesia Intra-op, Routine Given 02/26/2023 2:39 PM EDT 10 mg lactated ringers infusion Intravenous, CONTINUOUS PRN, Starting on Wed02/26/23 at 1405, Until Wed02/26/23 at 1439, Anesthesia Intra-op New Bag 02/26/2023 2:05 PM EDT propofoL (Diprivan) (10 mg/mL) infusion Intravenous, CONTINUOUS PRN, Starting on Wed02/26/23 at 1412, Until Wed02/26/23 at 1439, Anesthesia Intra-op, Routine Rate/Dose Change 02/26/2023 2:19 PM EDT 150 mcg/kg/min 58.77 mL/hr New Bag 02/26/2023 2:12 PM EDT 250 mcg/kg/min 97.95 mL/ hr documented in this encounter Care Teams Mobile Ui Developer Relationship Specialty Start Date End Date Ana Gillespie APRN [address] [place] [address] PCP - General Family Medicine 02/03/19 documented as of this encounter
--- OUTSIDE RECORDS SUMMARY | 2023-12-03 14:56 | XMS_ITS | Encounter Summary ---
[place] [address] Care Team Providers Care Narrow Fabrics Weaver Name Role Phone Ana Gillespie APRN Primary Care Provider [phone] Reason for Referral * Consultation (Urgent) - Closed Specialty Diagnoses / Procedures Referred By Contac t Referred To Contact Cardiology Diagnoses Cardiac LV ejection fraction 30-35% Ana Gillespie APRN [address] [place] [address] [facility] [address] [place] [phone] Referral ID Status Reason Start Date Expiration Date V isits Requested Visits Authorized [id number] Closed Consult, Test & Treat PCP Updated and/or Approved 11/23/2022 11/23/2023 12 12 Encounter Details Date Type Department Care Team (Latest Contact Info) Description 11/23/2022 Transcribe Orders eDH Incoming Referrals [phone] Ana Gillespie APRN [address] [place] [address] Cardiac LV ejection fraction 30-35% Social History Tobacco Use Types Packs/Day Years [...] 12/07/2023 1:00 PM EDT Appointment [place] [phone] 12/07/2023 2:00 PM EDT Office [place] [phone] Geronimo Mojica MD [facility] DR THORACIC SURGERY [place], [place] [id number] 12/27/2023 11:30 AM EDT Office [place] [address] Noe Cuenca MD [facility] [place] [address] Scheduled Procedures Name Priority Associated Diagnoses Date/Ti me EGD, UPPER GI ENDOSCOPY (WRV U 2.09) Peptic stricture of esophagus Scheduled Referrals Name Type Priority Associated Diagnoses Order Schedule Referral to Cardiology Outpatient Referral Urgent Cardiac LV ejection fraction 30-35% Ordered: 11/23/2022 documented as of this encounter Visit Diagnoses Diagnosis Cardiac LV ejection fraction 30-35% Other symptoms involving cardiovascular system documented in this encounter Care Teams Narrow Fabrics Weaver Relationship Specialty Start Date End Date Ana Gillespie APRN [address] [place] [address] PCP - General Family Medicine 02/03/19 documented as of this encounter
--- OUTSIDE RECORDS SUMMARY | 2023-12-03 14:56 | XMS_ITS | Encounter Summary ---
Author Organization [facility] Address [facility] [place] [address] Care Team Providers Care Burn Out Tender Lace Name Role Phone Ana Gillespie APRN Primary Care Provider [phone] Encounter Details Date Type Department Care Team (Late st Contact Info) Description 02/26/2023 2:00 PM EDT - 02/26/2023 2:30 PM EDT [place] [phone] Davdi Dejesus MD [facility] [place] [address] EGD,WITH DILATION ESOPHAGUS WITH BALLOON,< 30 MM [...] Sign Reading Time Taken Comments Blood Pressure 75/41 02/26/2023 2:30 PM EDT Pulse 51 02/26/2023 1:04 PM EDT Temperature 36.8 ??C (98.2 ??F) 02/26/2023 1:04 PM ED T Respiratory Rate 16 02/26/2023 2:30 PM EDT Oxygen Saturation 100% 02/26/2023 2:30 PM EDT Inhaled Oxygen Concentration - - Weight - - Height - - Body Mass Index - - documented in this encounter Discharge Instructions * Discharge Instructions* Eligio Sadler, RN - 02/26/2023 3:40 PM EDT Upper GI Endoscopy: What to Expect [...] the day after the procedure, use an slxj-gaw-[id number] spray to numb your throat. Sucking on [...] occurs, please contact your Doctor. Please call [phone] before 8pm Mon-Fri with problems, questions or concerns. If you call after 8pm or on weekends, call the Hospital at [phone] and ask to speak to the Hemming And Tacking Machine Operator stone lathe operator and the cold type composing machine operator will contact that person for you. When should you call for help? Call [phone] anytime you think you may need emergency [...] any problems. Where can you learn more? [facility] View your After Visit Summary and more online at [email or web address] If you would like to provide feedback about your hospital experience, please call the Office of Patient and Family Relations at . If you have received this After Visit Summary in error, please immediately return it in person to the department, or notify the [facility] Privacy Office by calling toll free at between the hours of 8AM and 5PM to arrange for our retrieval of the documents at no cost to you. Content Version: 12.2 ?? [id number] [employer]. Care instructions adapted under license by [facility]. If you have questions about a medical condition or this instruction, always ask your healthcare professional. [employer] disclaims any warranty or liability for your use of this information. documented in this encounter Medications at Time of Discharge Medication Sig Dispensed Refills Start Date End Date buPROPion XL (Wellbutrin XL) 300 mg XL [...] meter kit. 1 each 0 12/14/2014 Insulin [place], Disposable, (BD INSULIN PEN NEEDLE UF MINI) 31 x 3/16 NeedleIndications:Di abetes mellitus type 2, uncontrolled 1 Device by Mis.(Non-Drug; Combo Route) route 3 times daily as needed. 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 y/o who presents for further peptic stricture dilation. MEDICATIONS No current facility-administered medications on file prior to encounter. Current Outpatient Medications on File Prior to Encounter Medication Sig Dispense Refill ergocalciferoL, vitamin D2, (vitamin D2) 50,000 unit capsule Take 1 capsule by mouth every 14 days.6 capsule 3 MELATONIN ORAL Take 9 mg by mouth nightly as needed. Via g tube sucralfate (Carafate) 1 gram tablet Take 1 [...] G Tube route daily. 90 tablet 3 metoprolol succinate XL (Toprol-XL) 50 mg [...] Tablet Take 50 mg by mouth daily. insulin isophane- NPH 100 unit/mL (3 mL) Insulin Pen Administer 20 units at start of your feed and 20 units 6 hours into your feed 45 mL 3 acetaminophen (Tylenol) 160 mg/5 mL Liquid Take 15 mg/kg/dose by mouth every 4 hours as needed for Fever. 1000 mg bid insulin aspart U-100 (NovoLOG FlexPen U-100 Insulin) [...] >250 GIVE 6 units 12 mL 12 insulin glargine-yfgn (Semglee) 100 unit/mL Solution [...] glucose meter kit. 1 each 0 Insulin [place], Disposable, (BD INSULIN PEN NEEDLE UF MINI) 31 x 3/16 Needle 1 Device by Misc.(Non-Drug; Combo Route) route 3 times daily as needed. 100 each 11 PHYSICAL EXAM: Blood pressure 92/52, pulse 51, temperature 36.8 ??C (98.2 ??F), resp. rate 18, SpO2 91%. GEN: Alert, cooperative. Pleasant. In NAD MP I ASA II HEENT: No oropharyngeal lesions. Neck supple. No masses. Thyroid symmetric LUNGS: CTAB CARD: RRR without m/g/r RECENT LABS Recent Results (from the past 24 hour(s)) POCT Glucose Result Value Ref Range POC Glucose 71 65 - 199 mg/dL ASSESSMENT AND PLAN [...] 12/07/2023 1:00 PM EDT [place] [phone] 12/07/2023 2:00 PM EDT Office [place] [phone] Geronimo Mojica MD [facility] [place] [address] 12/27/2023 11:30 AM EDT [place] [address] Noe Cuenca MD [facility] [place] [address] Scheduled Procedures Name Priority Associated Diagnoses Date/Ti me EGD, UPPER GI ENDOSCOPY (WRV U 2.09) Peptic stricture of esophagus documented as of this encounter Procedures Procedure Name Priority Date/Time Associated Diagnosis Comments Up Gi Endoscopy, Ball Dil, 30Mm (39686) 02/26/2023 2:09 PM EDT Peptic stricture of esophagus POCT GLUCOSE Routine 02/26/2023 1:28 PM EDT documented in this encounter Results * POCT Glucose (02/26/2023 1:28 PM EDT) POC Glucose 71 65 - 199 mg/dL [facility] Comment: Supplemental ranges: <140 mg/dL before meals <180 mg/dL all other times of the day Blood 02/26/2023 1:28 PM EDT 02/26/2023 1:28 PM EDT David Dejesus MD POINT OF CARE TEST ORDERABLES [facility] [place] [address] documented in this encounter Visit Diagnoses Diagnosis Peptic stricture of esophagus Stricture and stenosis of esophagus documented in this encounter Administered Medications Inactive Administered Medications - up to 3 most recent administrations Medication Order MAR Action Action Date Dose Rate Site dextrose 5% and sodium chloride 0.45% infusion 100 mL/hr, Intravenous, CONTINUOUS, Starting on Wed02/26/23 at 1400, Until Wed02/26/23 at 1536, Endoscopy (Day of Procedure) New Bag 02/26/2023 1:37 PM EDT 100 mL/hr 100 mL/hr documented in this encounter Active and Recently Administered Medications Times are shown in EDT. Continuous Medication Order 02/24/2023 02/25/2023 02/26/2023 dextrose 5% and sodium chloride 0.45% infusion (CANCELED) 100 mL/hr, Intravenous, CONTINUOUS, Starting on Wed02/26/23 at 1400, Until Wed02/26/23 at 1536, Endoscopy (Day of Procedure) 1337 (New Bag - Prov ider: Gaby Doan RN) documented in this encounter Care Teams Burn Out Tender Lace Relationship Specialty Start Date End Date Ana Gillespie APRN [address] [place] [address] PCP - General Family Medicine 02/03/19 documented as of this encounter
--- OUTSIDE RECORDS SUMMARY | 2023-12-03 14:56 | XMS_ITS | Encounter Summary ---
Author Organization [facility] [place] [address] Care Team Providers Care Orange Peel Operator Name Role Phone Ana Gillespie VAUGHN Primary Care Provider [phone] Encounter Details Date Type Department Care Team (Late st Contact Info) Description 12/10/2022 Telephone [facility]ology [facility] [place] [address] Jessica Beckman Social History Tobacco Use Types [...] Telephone Encounter - Jessica Beckman - 12/10/2022 10:00 AM EDT Jennifer Irving [id number] Diagnosis/Indication: Dysphagia, Follow-up of Farrell's esophagus Please review patient chart to confirm if [...] had a/an Upper Endoscopy before? Yes: Date 09/10/22 [facility] If yes, did you have any problems with the procedure (such as waking up during the procedure, pain or difficulties afterwards, etc.)? No What type of sedation was used: IV Conscious Sedation Do you take any blood thinners or [...] supplements or vitamins that contain iron? Yes Do you have a preference regarding the gender of your provider? Yes Dr Dejesus ANESTHESIA QUESTIONS (YES to any question, [...] lay flat for a period of time? No Do you take prescription narcotic pain medications, [...] procedure? No You must have a responsible libertarian who will drive you to your procedure, stay on campus for the entire duration of your procedure, and drive you home from your procedure. Who will likely be your pizza driver for the procedure? *Please Verify the height and weight, and adjust if height and/or weight have changed* Estimated body mass index is 27.93 kg/m?? as calculated from the following: Height as of 11/12/22: 152.4 cm (5'). Weight as of 11/12/22: 64.9 kg (143 lb). Age:62 y.o. documented in this encounter Plan of Treatment Upcoming Encounters Date Type Department Care Team (Late st Contact Info) Description 12/07/2023 1:00 PM EDT Appointment [place] [address] 12/07/2023 2:00 PM EDT Office Visit [place] [phone] Geronimo Mojica MD [facility] [place] [address] 12/27/2023 11:30 AM EDT Office [place] [phone] Noe Cuenca MD [facility] [place] [address] Scheduled Procedures Name Priority Associated Diagnoses Date/Ti me EGD, UPPER GI ENDOSCOPY (WRV U 2.09) Peptic stricture of esophagus documented as of this encounter Visit Diagnoses Not on filedocumented in this encounter Care Teams Orange Peel Operator Relationship Specialty Start Date End Date Ana Gillespie APRN [address] [place] [address] PCP - General Family Medicine 02/03/19 documented as of this encounter
--- OUTSIDE RECORDS SUMMARY | 2023-12-03 14:56 | XMS_ITS | Encounter Summary ---
Author Organization [facility] [place] [address] Care Team Providers Care Spanish Tutor Name Role Phone Ana Gillespie HAIR STYLIST Primary Care Provider [phone] Encounter Details Date Type Department Care Team (Late st Contact Info) Description 03/01/2023 Telephone Gastroenterology at [facility] [place] [address] Parris Maravilla Social History Tobacco Use Types [...] Telephone Encounter - Parris Maravilla - 03/01/2023 4:20 PM EDT Jennifer Irving [id number] Diagnosis/Indication: stricture dilation Please review patient chart to [...] had a/an Upper Endoscopy before? Yes: Date 02/26/23 If yes, did you have any problems [...] preference regarding the gender of your provider? No ANESTHESIA QUESTIONS (YES to any question, please [...] use an oxygen tank at home? Yes at night Do you use a rescue inhaler more [...] your procedure. Who will likely be your food service driver for the procedure? *Please Verify the height and weight, and adjust if height and/or weight have changed* Estimated body mass index is 28.12 kg/m?? as calculated from the following: Height as of 01/15/23: 152.4 cm (5'). Weight as of 01/15/23: 65.3 kg (144 lb). *Patient must be scheduled for Anesthesia support if BMI is 40 or above* Age:62 y.o. documented in this encounter Plan of Treatment Upcoming Encounters Date Type Department Care Team (Late st Contact Info) Description 12/07/2023 1:00 PM EDT Appointment [place] [address] 12/07/2023 2:00 PM EDT Office [place] [phone] Geronimo Mojica MD [facility] [place] [address] 12/27/2023 11:30 AM EDT [place] [phone] Noe Cuenca MD [facility] [place] [address] Scheduled Procedures Name Priority Associated Diagnoses Date/Ti me EGD, UPPER GI ENDOSCOPY (WRV U 2.09) Peptic stricture of esophagus documented as of this encounter Visit Diagnoses Not on filedocumented in this encounter Care Teams Spanish Tutor Relationship Specialty Start Date End Date Ana Gillespie APRN [address] [place] [address] PCP - General Family Medicine 02/03/19 documented as of this encounter
--- OUTSIDE RECORDS SUMMARY | 2023-12-03 14:56 | XMS_ITS | Encounter Summary ---
Author Organization [facility] Address [facility] [place] [address] Care Team Providers Care Meat Loiner Name Role Phone Ana Gillespie VAUGHN Primary Care Provider [phone] Encounter Details Date Type Department Care Team (Latest Contact Info) Description 01/12/2023 6:17 AM EDT - 01/12/2023 10:54 AM EDT Hospital Encounter [place] [address] David Dejesus MD [facility] [place] [address] Discharge Disposition: Home Social History Tobacco Use [...] Sign Reading Time Taken Comments Blood Pressure 113/54 01/12/2023 9:55 AM EDT Pulse 64 01/12/2023 7:05 AM EDT Temperature 35.9 ??C (96.7 ??F) 01/12/2023 7:05 AM ED T Respiratory Rate 17 01/12/2023 9:55 AM EDT Oxygen Saturation 97% 01/12/2023 9:55 AM EDT Inhaled Oxygen Concentration - - [...] the day after the procedure, use an nowv-ucq-hyhvtoq spray to numb your throat. Sucking on [...] occurs, please contact your Doctor. Please call [phone] before 8pm Mon-Fri with problems, questions or concerns. If you call after 8pm or on weekends, call the Hospital at [phone] and ask to speak to the Potato Pancake Frier application support intern and the rolls mill operator will contact that person for you. [...] any problems. Where can you learn more? [facility] View your After Visit Summary and more online at [email or web address] If you would like to provide feedback about your hospital experience, please call the Office of Patient and Family Relations at . If you have received this After Visit Summary in error, please immediately return it in person to the department, or notify the [facility] Privacy Office by calling toll free at between the hours of 8AM and 5PM to arrange for our retrieval of the documents at no cost to you. Content Version: 12.2 ?? 4998-6161 [employer]. Care instructions adapted under license by [facility]. If you have questions about a medical condition or this instruction, always ask your healthcare professional. [employer] disclaims any warranty or liability for your [...] strips. 300 each 3 12/14/2014 Blood-Glucose Meter (zlienTOUCH ULTRA2) KitIndications:Type 2 diabetes mellitus, uncontrolled by Other route. 1 = one blood glucose meter kit. 1 each 0 12/14/2014 Insulin [place], Disposable, (BD INSULIN PEN NEEDLE UF MINI) 31 x 3/16 NeedleIndications:Di abetes mellitus type 2, uncontrolled 1 Device by [facility].(Non-Drug; Combo Route) route 3 times daily as [...] 1:00 PM EDT Appointment [place] [phone] 12/07/2023 2:00 PM EDT Office Visit [place] [address] Geronimo Mojica MD [facility] [place] [address] 12/27/2023 11:30 AM EDT Office [place] [address] Noe Cuenca MD [facility] [place] [address] Scheduled Procedures Name Priority Associated Diagnoses Date/Ti me EGD, UPPER GI ENDOSCOPY (WRV U 2.09) Peptic stricture of esophagus documented as of this encounter Procedures Procedure Name Priority Date/Time Associated Diagnosis Comments Up Gi Endoscopy, Ball Dil, 30Mm (08024) 01/12/2023 8:06 AM EDT Peptic stricture of esophagus POCT GLUCOSE Routine 01/12/2023 7:31 AM EDT documented in this encounter Results * POCT Glucose (01/12/2023 7:31 AM EDT) POC Glucose 115 65 - 199 mg/dL [facility] Comment: Supplemental ranges: <140 mg/dL before meals <180 mg/dL all other times of the day Blood 01/12/2023 7:31 AM EDT 01/12/2023 7:31 AM EDT David Dejesus MD POINT OF CARE TEST ORDERABLES [facility] [place] [address] documented in this encounter Visit Diagnoses Not on filedocumented in this encounter Administered Medications Inactive Administered Medications - up to 3 most recent administrations Medication Order MAR Action Action Date Dose Rate Site lactated ringers infusion 100 mL/hr, Intravenous, CONTINUOUS, Starting on 01/12/23 at 0745, Until Tu01/12/23 at 1008, Endoscopy (Day of Procedure) Restarted 01/12/2023 9:15 AM EDT New Bag 01/12/2023 7:45 AM EDT 100 mL/hr 100 mL/hr documented in this encounter Active and Recently Administered Medications Times are shown in EDT. Continuous Medication Order 01/10/2023 01/11/2023 01/12/2023 lactated ringers infusion (CANCELED) 100 mL/hr, Intravenous, CONTINUOUS, Starting on 01/12/23 at 0745, Until Tu01/12/23 at 1008, Endoscopy (Day of Procedure) 0745 (New Bag - Prov ider: Mckenzie Ricardo RN)0914 (Paused - Provider: Chiquis Burnham CRNA - Comment: Switch to gravity)0915 (Restarted - Provider: Chiquis Burnham CRNA) documented in this encounter Care Teams Meat Loiner Relationship Specialty Start Date End Date Ana Gillespie APRN [address] [place] [address] PCP - General Family Medicine 02/03/19 documented as of this encounter
--- OUTSIDE RECORDS SUMMARY | 2023-12-03 14:56 | XMS_ITS | Encounter Summary ---
Author Organization [facility] [place] [address] Care Team Providers Care Steam Frame Operator Name Role Phone Ana Gillespie SEWER DIGGER Primary Care Provider [phone] Encounter Details Date Type Department Care Team (Late st Contact Info) Description 01/27/2023 Telephone [place] [address] Parris Maravilla Social History Tobacco [...] * Telephone Encounter - Parris Maravilla - 01/27/2023 10:26 AM EDT LVM to have her call and reschedule urgent EGD Spot saved on 02/09 for her When she calls back, please park her to me documented in this encounter Plan of Treatment Upcoming Encounters Date Type Department Care Team (Late st Contact Info) Description 12/07/2023 1:00 PM EDT Appointment [place] [address] 12/07/2023 2:00 PM EDT Office Visit [place] [address] Geronimo Mojica MD [facility] [place] [address] 12/27/2023 11:30 AM EDT Office [place] [phone] Noe Cuenca MD [facility] [place] [address] Scheduled Procedures Name Priority Associated Diagnoses Date/Ti me EGD, UPPER GI ENDOSCOPY (WRV U 2.09) Peptic stricture of esophagus documented as of this encounter Visit Diagnoses Not on filedocumented in this encounter Care Teams Steam Frame Operator Relationship Specialty Start Date End Date Ana Gillespie APRN [address] [place] [address] PCP - General Family Medicine 02/03/19 documented as of this encounter
--- OUTSIDE RECORDS SUMMARY | 2023-12-03 14:56 | XMS_ITS | Encounter Summary ---
Author Organization [facility]1983 Address [facility] [place] [address] Care Team Providers Care Director Sales And Marketing Name Role Phone Ana Gillespie APRN Primary Care Provider Encounter Details Date Type Department Care Team (Late st Contact Info) Description 01/13/2023 Telephone [place] [phone] Parris Maravilla Social History Tobacco Use Types [...] 12/07/2023 1:00 PM EDT Appointment [place] [phone] 12/07/2023 2:00 PM EDT Office [place] [phone] Geronimo Mojica MD [facility] [place] [address] 12/27/2023 11:30 AM EDT Office [place] [phone] Noe Cuenca MD [facility] DR PULMONARY MEDICINE [place], [place] [phone] Scheduled Procedures Name Priority Associated Diagnoses Date/Ti me EGD, UPPER GI ENDOSCOPY (WRV U 2.09) Peptic stricture of esophagus documented as of this encounter Visit Diagnoses Not on filedocumented in this encounter Care Teams Director Sales And Marketing Relationship Specialty Start Date End Date Ana Gillespie APRN [address] [place] [address] PCP - General Family Medicine 02/03/19 documented as of this encounter
--- OUTSIDE RECORDS SUMMARY | 2023-12-03 14:56 | XMS_ITS | Encounter Summary ---
Author Organization [facility] Address [facility] [place] [address] Care Team Providers Care Strategic Planning Specialist Name Role Phone Ana Gillespie APRN Primary Care Provider [phone] Encounter Details Date Type Department Care Team (Latest Contact Info) Description 02/26/2023 12:03 PM EDT - 02/26/2023 3:41 PM EDT Hospital En[place] [phone] David Dejesus MD [facility] [place] [address] Discharge Disposition: Home Social History Tobacco Use [...] Sign Reading Time Taken Comments Blood Pressure 95/51 02/26/2023 3:20 PM EDT Pulse 51 02/26/2023 1:04 PM EDT Temperature 36.8 ??C (98.2 ??F) 02/26/2023 1:04 PM ED T Respiratory Rate 16 02/26/2023 3:20 PM EDT Oxygen Saturation 97% 02/26/2023 3:20 PM EDT Inhaled Oxygen Concentration - - [...] the day after the procedure, use an evmt-hrc-ocnygxu spray to numb your throat. Sucking on [...] occurs, please contact your Doctor. Please call [phone] before 8pm Mon-Fri with problems, questions or concerns. If you call after 8pm or on weekends, call the Hospital at [phone] and ask to speak to the Template Clerk director of operations support and the billet bed operator will contact that person for you. [...] any problems. Where can you learn more? [facility] View your After Visit Summary and more online at [email or web address] If you would like to provide feedback about your hospital experience, please call the Office of Patient and Family Relations at . If you have received this After Visit Summary in error, please immediately return it in person to the department, or notify the [facility] Privacy Office by calling toll free at between the hours of 8AM and 5PM to arrange for our retrieval of the documents at no cost to you. Content Version: 12.2 ?? 3640-8178 [employer]. Care instructions adapted under license by [facility]. If you have questions about a medical condition or this instruction, always ask your healthcare professional. [employer] disclaims any warranty or liability for your [...] meter kit. 1 each 0 12/14/2014 Insulin [place], Disposable, (BD INSULIN PEN NEEDLE UF [...] glucose meter kit. 1 each 0 Insulin [place], Disposable, (BD INSULIN PEN NEEDLE UF [...] 12/07/2023 1:00 PM EDT Appoint[place] [address] 12/07/2023 2:00 PM EDT Office [place] [address] Geronimo Mojica MD [facility] [place] [address] 12/27/2023 11:30 AM EDT Office [place] [address] Noe Cuenca MD [facility] [place] [address] Scheduled Procedures Name Priority Associated Diagnoses Date/Ti me EGD, UPPER GI ENDOSCOPY (WRV U 2.09) Peptic stricture of esophagus documented as of this encounter Procedures Procedure Name Priority Date/Time Associated Diagnosis Comments Up Gi Endoscopy, Ball Dil, 30Mm (12172) 02/26/2023 2:09 PM EDT Peptic stricture of esophagus POCT GLUCOSE Routine 02/26/2023 1:28 PM EDT documented in this encounter Results * POCT Glucose (02/26/2023 1:28 PM EDT) POC Glucose 71 65 - 199 mg/dL [facility] Comment: Supplemental ranges: <140 mg/dL before meals <180 mg/dL all other times of the day Blood 02/26/2023 1:28 PM EDT 02/26/2023 1:28 PM EDT David Dejesus MD POINT OF CARE TEST ORDERABLES [facility] [place] [address] documented in this encounter Visit Diagnoses Not [...] RN) documented in this encounter Care Teams Strategic Planning Specialist Relationship Specialty Start Date End Date Ana Gillespie APRN [address] [place] [address] PCP - General Family Medicine 02/03/19 documented as of this encounter
--- OUTSIDE RECORDS SUMMARY | 2023-12-03 14:56 | XMS_ITS | Encounter Summary ---
Author Organization [facility] Address [facility] [place] [address] Care Team Providers Care Hot Room Attendant Name Role Phone Ana Gillespie APRN Primary Care Provider [phone] Encounter Details Date Type Department Care Team (Late st Contact Info) Description 11/23/2022 [place] [phone] Fannie Conde PA [facility] [place] [address] Social History Tobacco Use Types Packs/Day Years [...] as of this encounter Progress Notes * Fannie Conde PA - 11/23/2022 3:21 PM EDT Patient's called on 11/23 to report that G-tube external tubing is broken/cracked and that it needs to be replaced. He claims no concern for dislodgement at this time. Denies fevers, abdominalpain, nausea/vomiting. Ordered for G-tube exchange to be done under local only, to be scheduled some time this week. Patient's 's questions answered over the phone, and he is in agreement with above plan. Order placed, and IR coordinator notified. Discussed with Interventional Radiology Attending Physician Dr. Chambers. Fannie Conde PA-C Interventional Radiology documented in this encounter Plan of Treatment Upcoming Encounters Date Type Department Care Team (Late st Contact Info) Description 12/07/2023 1:00 PM EDT [place] [address] 12/07/2023 2:00 PM EDT Office [place] [address] Geronimo Mojica MD [facility] [place] [address] 12/27/2023 11:30 AM EDT [place] [address] Noe Cuenca MD [facility] [place] [address] Scheduled Procedures Name Priority Associated Diagnoses Date/Ti me EGD, UPPER GI ENDOSCOPY (WRV U 2.09) Peptic stricture of esophagus documented as of this encounter Visit Diagnoses Diagnosis Neuroleptic-induced parkinsonism Secondary Parkinsonism documented in this encounter Care Teams Hot Room Attendant Relationship Specialty Start Date End Date Ana Gillespie APRN [address] [place] [address] PCP - General Family Medicine 02/03/19 documented as of this encounter
--- OUTSIDE RECORDS SUMMARY | 2023-12-03 14:57 | XMS_ITS | Encounter Summary ---
Author Organization [facility] Address [facility] [place] [address] Care Team Providers Care Software Systems Engineer Name Role Phone Ana Gillespie VAUGHN Primary Care Provider [phone] Encounter Details Date Type Department Care Team (Latest Contact Info) Description 08/31/2022 Travel Social History Tobacco Use Types Packs/Day [...] 12/07/2023 1:00 PM EDT Appointment Pulmonology at [place] [phone] 12/07/2023 2:00 PM EDT Office Visit Thoracic Surgery at [place] [phone] Geronimo Mojica MD [facility] [place] [address] 12/27/2023 11:30 AM EDT Office Visit Pulmonology at [place] [phone] Noe Cuenca MD [facility] [place] [address] Scheduled Procedures Name Priority Associated Diagnoses Date/Ti me EGD, UPPER GI ENDOSCOPY (WRV U 2.09) Peptic stricture of esophagus documented as of this encounter Visit Diagnoses Not on filedocumented in this encounter Care Teams Software Systems Engineer Relationship Specialty Start Date End Date Ana Gillespie APRN [address] [place] [address] PCP - General Family Medicine 02/03/19 documented as of this encounter
--- OUTSIDE RECORDS SUMMARY | 2023-12-03 14:57 | XMS_ITS | Encounter Summary ---
Author Organization [facility] [place] [address] Care Team Providers Care Back Sewer Name Role Phone Ana Gillespie APRN Primary Care Provider [phone] Reason for Visit * Reason Onset Date Comments Medication Refill 11/13/2022 Encounter Details Date Type Department Care Team (Late st Contact Info) Description 11/13/2022 Ref[place] [address] Alyce Vogt RN Social History Tobacco Use [...] 12/07/2023 1:00 PM EDT Appointment [place] [address] 12/07/2023 2:00 PM EDT Office [place] [address] Geronimo Mojica MD [facility] [place] [address] 12/27/2023 11:30 AM EDT Office [place] [address] Noe Cuenca MD [facility] [place] [address] Scheduled Procedures Name Priority Associated Diagnoses Date/Ti me EGD, UPPER GI ENDOSCOPY (WRV U 2.09) Peptic stricture of esophagus documented as of this encounter Visit Diagnoses Not on filedocumented in this encounter Care Teams Back Sewer Relationship Specialty Start Date End Date Ana Gillespie APRN [address] [place] [address] PCP - General Family Medicine 02/03/19 documented as of this encounter
--- OUTSIDE RECORDS SUMMARY | 2023-12-03 14:57 | XMS_ITS | Encounter Summary ---
Author Organization [facility] [place] [address] Care Team Providers Care Process Maintenance Technician Name Role Phone Ana Gillespie VAUGHN Primary Care Provider [phone] Reason for Visit * Reason Onset Date Comments Diabetes 09/30/2022 Encounter Details Date Type Department Care Team (Late st Contact Info) Description 09/30/2022 Telephone [place] [phone] Elsie Erickson APRN [facility] [place] [address] Diabetes Social History Tobacco Use Types Packs/Day Years [...] encounter Miscellaneous Notes * Telephone Encounter - Elsie Erickson APRN - 09/30/2022 10:15 AM EDT Left 2nd msg with return contact info, asked for call back to review BG management documented in this encounter Plan of Treatment Upcoming Encounters Date Type Department Care Team (Late st Contact Info) Description 12/07/2023 1:00 PM EDT [place] [phone] 12/07/2023 2:00 PM EDT Office [place] [address] Geronimo Mojica MD [facility] [place] [address] 12/27/2023 11:30 AM EDT Office [place] [phone] Noe Cuenca MD [facility] [place] [address] Scheduled Procedures Name Priority Associated Diagnoses Date/Ti me EGD, UPPER GI ENDOSCOPY (WRV U 2.09) Peptic stricture of esophagus documented as of this encounter Visit Diagnoses Not on filedocumented in this encounter Care Teams Process Maintenance Technician Relationship Specialty Start Date End Date Aan Gillespie APRN [address] [place] [address] PCP - General Family Medicine 02/03/19 documented as of this encounter
--- OUTSIDE RECORDS SUMMARY | 2023-12-03 14:57 | XMS_ITS | Encounter Summary ---
Author Organization [facility] [place] [address] Care Team Providers Care Spindle Carver Name Role Phone Ana Gillespie VAUGHN Primary Care Provider [phone] Encounter Details Date Type Department Care Team (Late st Contact Info) Description 11/13/2022 Telephone [place] [address] Alyce Vogt RN Social History Tobacco Use [...] Telephone Encounter - Alyce Vogt RN - 11/13/2022 3:56 PM EDT Pt called asking about a RX for pts Vitamin D. I did not see a dose in pts last visit. documented in this encounter Plan of Treatment Upcoming Encounters Date Type Department Care Team (Late st Contact Info) Description 12/07/2023 1:00 PM EDT Appointment [place] [address] 12/07/2023 2:00 PM EDT Office [place] [address] Geronimo Mojica MD [facility] [place] [address] 12/27/2023 11:30 AM EDT Office [place] [phone] Noe Cuenca MD [facility] DR [place] [address] Scheduled Procedures Name Priority Associated Diagnoses Date/Ti me EGD, UPPER GI ENDOSCOPY (WRV U 2.09) Peptic stricture of esophagus documented as of this encounter Visit Diagnoses Not on filedocumented in this encounter Care Teams Spindle Carver Relationship Specialty Start Date End Date Ana Gillespie APRN [address] [place] [address] PCP - General Family Medicine 02/03/19 documented as of this encounter
--- OUTSIDE RECORDS SUMMARY | 2023-12-03 14:57 | XMS_ITS | Encounter Summary ---
Author Organization [facility] [place] [address] Care Team Providers Care Broom Maker Name Role Phone Ana Gillespie APRN Primary Care Provider [phone] Reason for Visit * Reason Onset Date Comments Medication Refill 10/22/2022 Encounter Details Date Type Department Care Team (Late st Contact Info) Description 10/22/2022 Ref[place] [address] David Dejesus MD [facility] [place] [address] Social History Tobacco Use Types Packs/Day Years [...] 12/07/2023 1:00 PM EDT [place]oint[place] [phone] 12/07/2023 2:00 PM EDT Office [place] [address] Geronimo Mojica MD [facility] [place] [address] 12/27/2023 11:30 AM EDT [place] [address] Noe Cuenca MD [facility] [place] [address] Scheduled Procedures Name Priority Associated Diagnoses Date/Ti me EGD, UPPER GI ENDOSCOPY (WRV U 2.09) Peptic stricture of esophagus documented as of this encounter Visit Diagnoses Not on filedocumented in this encounter Care Teams Broom Maker Relationship Specialty Start Date End Date Ana Gillespie APRN [address] [place] [address] PCP - General Family Medicine 02/03/19 documented as of this encounter
--- OUTSIDE RECORDS SUMMARY | 2023-12-03 14:57 | XMS_ITS | Encounter Summary ---
Author Organization [facility] Address [facility] [place] [address] Care Team Providers Care Sephora Product Consultant Name Role Phone Ana Gillespie APRN Primary Care Provider [phone] Encounter Details Date Type Department Care Team (Late st Contact Info) Description 11/12/2022 11:30 AM EDT Office [place] [phone] Dixie Tadeo MD [facility] [place] [address] Type 2 diabetes mellitus with diabetic polyneuropathy, with long-term current use of insulin; Osteoporosis, unspecified osteoporosis type, unspecified pathological fracture presence Social History Tobacco Use Types Packs/Day Years [...] Sign Reading Time Taken Comments Blood Pressure 95/81 11/12/2022 11:23 AM EDT Pulse 67 11/12/2022 11:23 AM EDT Temperature - - Respiratory Rate - - Oxygen Saturation 97% 11/12/2022 11:23 AM EDT Inhaled Oxygen Concentration - - Weight 64.9 kg (143 lb) 11/12/2022 11:23 AM EDT Height 152.4 cm (5') 11/12/2022 11:23 AM EDT Body Mass Index 27.93 11/12/2022 11:23 AM EDT documented in this encounter Progress Notes * Dixie Tadeo MD - 11/12/2022 11:30 AM EDT Images from the original note were not included. Division of Endocrinology Date of Visit: 11/12/2022 Patient Name: Jennifer Irving : 1960 PCP: Ana Gillespie APRN Mrs Jennifer Irving 62yo new patient visit for severe osteoporosis s/p L FN fracture 08/2022 and DM. She was seen by Elsie Erickson while inpatient for DM. Has Baretts, strictures and as a result TF only, does not eat food, uses 4 cans of nutren 1.5. Her glucose almost always is below 200, they did not bring glucometer or book. Has not had any BMD. Fracture happened, that she slipped in kitchen and fell, she does not remember much. Other risk factors for fracture/osteoporosis are: [] Yes [x] No Smoking, if yes, how long [] Yes [x] No Drinking alcohol. If yes, how much [x] Yes [] No Exercise If yes how long and what kind of exercise with PT [] Yes [x] No Stomach or bowel surgery. If yes, When and what kind [] Yes [x] No Loose bowel movements. If yes, how frequently and how long [x] Yes [] No Loss of height 5 [] Yes [x] No History of kidney stones? If yes, when and how many episodes? [] Yes [x] No Kidney or liver problems? If yes, what kind and how long? Average time spent outside in direct sun a day [x] 0-5 min [] 5-10 min [] 11-15 min [] 16-20 min [] 21-25 min [] 26-30 min [] >30 min For women: Start of menstrual cycle 14 End of menstrual cycle 44, no HRT Daily calcium intake: [] 0-100 mg [] 101-200 mg [] 201-300 mg [] 301-400 mg [] 401-500 mg [] 501-600 mg [] 601-700 mg [] 701-900 mg [x] 901-1100 mg 250mg x4 per TF can [] 9639-3174 mg [] 1798-9731 mg [] Above 1500 mg Medications: Current Outpatient Medications on File Prior to Visit Medication Sig Dispense Refill MELATONIN ORAL Take 9 mg by mouth [...] glucose meter kit. 1 each 0 Insulin [place], Disposable, (BD INSULIN PEN NEEDLE UF MINI) 31 x 3/16 Needle 1 Device by Mis.(Non-Drug; Combo Route) route 3 times daily as needed. 100 each 11 No current facility-administered medications on file prior to visit. PMH: Patient Active Problem List Diagnosis Code GERD (gastroesophageal reflux disease) K21.9 Farrell's esophagus K22.70 T2DM (type 2 diabetes mellitus) E11.9 BMI 37.0-37.9, adult Z68.37 Bipolar disorder F31.9 Neuroleptic-induced parkinsonism G21.11 Allergies Allergen Reactions Meperidine Hcl CIS - violently ill Metformin Other (See Comments) Severe diarrhea Social History Socioeconomic History Marital status: Spouse name: Not on file Number of children: Not on file Years of education: Not on file Highest education level: Not on file Occupational History Not on file Tobacco Use Smoking status: Former Years: Types: Cigarettes Quit date: 02/26/2021 Years since quittin.7 Smokeless tobacco: Never Substance and Sexual Activity Alcohol use: Not Currently Alcohol/week: 1.0 standard drink Types: 1 Glasses of wine per week Drug use: Never Sexual activity: Yes Partners: Male Other Topics Concern Not on file Social History Narrative Not on file Social Determinants of Health Financial Resource Strain: Not on file Food Insecurity: Not on file Transportation Needs: Not on file Physical Activity: Not on file Housing Stability: Not on file Physical Examination: BP 95/81 Pulse 67 Ht 152.4 cm (5') Wt 64.9 kg (143 lb) SpO2 97% BMI 27.93 kg/m?? Spine: with kyphosis, without pain on palpation. Patient able to stand up with assistance, walks with walker Skin: no tamayo face, acne, Appearance: oriented x 3, in nad. Labs 09/2022 CBC, Chem 7 in good range, 08/2022 A1C 6.2, 25-D 12, PTH 60, Ca 9.8, AP 213 08/2022 CT hip IMPRESSION Uncomplicated left femoral neck ORIF with unchanged postoperative alignment. Assessment and Plan S/p Hip fracture/severe osteoporosis/DM: Glucose well controled on Lantus 10U QHS and 17 U NPH in am with starting TF and 17U NPH, no lows, I asked to bring meter in next time, check A1C now. Has Humalog prescription but is not using it. Will have Optho soon, has severe Periferal neuropathy. Mrs Jennifer Irving had minimal trauma fracture due to osteomalacia/osteoporosis A. As patient's Ca intake is 1000mg from TF, they are not sure for how long TF are planned, will have esophageal dilation soon. B. Patient also doesn't have Vitamin D at goal is 30 ng/ml and above. Was started on Ceetkfdnrlsrpw32,000 U Q weekly when inpatient. C. Will order BMD by DXA now, will be done at [facility] D. If 25 Vit D at good range will treat with zolendronic acid now. Risks discussed. E. I will schedule patient for outpatient visit at 9 weeks when she sees ortho here. Thank you for allowing me to participate in the care of this very pleasant patient. I spend 60 min in chart review, xrays, labs, discussing her DM with TF, severe osteoporosis and writing my note. Sincerely, Dixie Tadeo MD Professor of Endocrinology documented in this encounter Plan of Treatment Upcoming Encounters Date Type Department Care Team (Late st Contact Info) Description 12/07/2023 1:00 PM EDT Appointment [place] [address] 12/07/2023 2:00 PM EDT Office [place] [address] Geronimo Mojica MD [facility] [place] [address] 12/27/2023 11:30 AM EDT Office [place] [address] Noe Cuenca MD [facility] [place] [address] Scheduled Procedures Name Priority Associated Diagnoses Date/Ti me EGD, UPPER GI ENDOSCOPY (WRV U 2.09) Peptic stricture of esophagus documented as of this encounter Visit Diagnoses Diagnosis Type 2 diabetes mellitus with diabetic polyneuropathy, with long-term current use of insulin Osteoporosis, unspecified osteoporosis type, unspecified pathological fracture presence documented in this encounter Care Teams Sephora Product Consultant Relationship Specialty Start Date End Date Ana Gillespie APRN [address] [place] [address] PCP - General Family Medicine 02/03/19 documented as of this encounter
--- OUTSIDE RECORDS SUMMARY | 2023-12-03 14:57 | XMS_ITS | Encounter Summary ---
Author Organization [facility] [place] [address] Care Team Providers Care Computer Forensics Investigator Name Role Phone Ana Gillespie APRN Primary Care Provider [phone] Encounter Details Date Type Department Care Team (Late st Contact Info) Description 08/24/2022 Orders [place] [phone] Chace Carrera [facility] [place] [address] Social History Tobacco Use Types Packs/Day Years [...] 12/07/2023 1:00 PM EDT [place] [phone] 12/07/2023 2:00 PM EDT Office [place] [address] Geronimo Mojica MD [facility] [place] [address] 12/27/2023 11:30 AM EDT [place] [address] Noe Cuenca MD [facility] [place] [address] Scheduled Procedures Name Priority Associated Diagnoses Date/Ti me EGD, UPPER GI ENDOSCOPY (WRV U 2.09) Peptic stricture of esophagus documented as of this encounter Visit Diagnoses Not on filedocumented in this encounter Care Teams Computer Forensics Investigator Relationship Specialty Start Date End Date Ana Gillespie APRN [address] [place] [address] PCP - General Family Medicine 02/03/19 documented as of this encounter
--- OUTSIDE RECORDS SUMMARY | 2023-12-03 14:57 | XMS_ITS | Encounter Summary ---
Author Organization [facility] Address [facility] [place] [address] Care Team Providers Care Power Generation Turbine Room Operator Name Role Phone Ana Gillespie VAUGHN Primary Care Provider [phone] Encounter Details Date Type Department Care Team (Latest Contact Info) Description 09/04/2022 Travel Social History Tobacco Use Types Packs/Day [...] 12/07/2023 1:00 PM EDT Appointment Pulmonology at [place] [phone] 12/07/2023 2:00 PM EDT Office Visit Thoracic Surgery at [place] [phone] Geronimo Mojica MD [facility] [place] [address] 12/27/2023 11:30 AM EDT Office Visit Pulmonology at [place] [phone] Noe Cuenca MD [facility] [place] [address] Scheduled Procedures Name Priority Associated Diagnoses Date/Ti me EGD, UPPER GI ENDOSCOPY (WRV U 2.09) Peptic stricture of esophagus documented as of this encounter Visit Diagnoses Not on filedocumented in this encounter Care Teams Power Generation Turbine Room Operator Relationship Specialty Start Date End Date Ana Gillespie APRN [address] [place] [address] PCP - General Family Medicine 02/03/19 documented as of this encounter
--- OUTSIDE RECORDS SUMMARY | 2023-12-03 14:57 | XMS_ITS | Encounter Summary ---
Author Organization [facility] Address [facility] [place] [address] Care Team Providers Care Mortgage Accounting Clerk Name Role Phone Ana Gillespie VAUGHN Primary Care Provider [phone] Encounter Details Date Type Department Care Team (Latest Contact Info) Description 11/12/2022 Travel Social History Tobacco Use Types Packs/Day [...] 12/07/2023 1:00 PM EDT Appointment Pulmonology at [place] [phone] 12/07/2023 2:00 PM EDT Office Visit Thoracic Surgery at [place] [phone] Geronimo Mojica MD [facility] [place] [address] 12/27/2023 11:30 AM EDT Office Visit Pulmonology at [place] [phone] Noe Cuenca MD [facility] [place] [address] Scheduled Procedures Name Priority Associated Diagnoses Date/Ti me EGD, UPPER GI ENDOSCOPY (WRV U 2.09) Peptic stricture of esophagus documented as of this encounter Visit Diagnoses Not on filedocumented in this encounter Care Teams Mortgage Accounting Clerk Relationship Specialty Start Date End Date Ana Gillespie APRN [address] [place] [address] PCP - General Family Medicine 02/03/19 documented as of this encounter
--- OUTSIDE RECORDS SUMMARY | 2023-12-03 14:57 | XMS_ITS | Encounter Summary ---
Author Organization [facility] Address [facility] [place] [address] Care Team Providers Care Programming Internship Name Role Phone Jose MiguelAna VAUGHN Primary Care Provider [phone] Encounter Details Date Type Department Care Team (Late st Contact Info) Description 10/06/2022 [place] [phone] Elsie Erickson APRN [facility] [place] [address] Social History Tobacco Use Types Packs/Day Years [...] Telephone Encounter - Elsie Erickson APRN - 10/06/2022 4:20 PM EDT Summary: Blood sugar review [facility] reports that they have not had tube feeds since last week, [facility] having computer system issues so unable to ship supplies. [facility] has been using Ensure boluses 2 x daily as he was directed. He has not noted elevation of her blood sugars with this. BGs in 120s-140s. [facility] once he has this back. He has no questions and we will check back in the next few days. documented in this encounter Plan of Treatment Upcoming Encounters Date Type Department Care Team (Late st Contact Info) Description 12/07/2023 1:00 PM EDT [place] [phone] 12/07/2023 2:00 PM EDT Office [place] [address] Geronimo Mojica MD [facility] [address] THORACIC SURGERY [place], [place] [phone] 12/27/2023 11:30 AM EDT Office [place] [address] Noe Cuenca MD [facility] [place] [address] Scheduled Procedures Name Priority Associated Diagnoses Date/Ti me EGD, UPPER GI ENDOSCOPY (WRV U 2.09) Peptic stricture of esophagus documented as of this encounter Visit Diagnoses Not on filedocumented in this encounter Care Teams Programming Internship Relationship Specialty Start Date End Date Ana Gillespie APRN [address] [place] [address] PCP - General Family Medicine 02/03/19 documented as of this encounter
--- OUTSIDE RECORDS SUMMARY | 2023-12-03 14:57 | XMS_ITS | Encounter Summary ---
Author Organization [facility] [place] [place] [address] Care Team Providers Care Hoop Riveting Machine Operator Helper Name Role Phone Ana Gillespie VAUGHN Primary Care Provider Reason for Visit * Reason Onset Date Comments Diabetes 09/29/2022 Encounter Details Date Type Department Care Team (Late st Contact Info) Description 09/29/2022 Telephone [place] [phone] Elsie Erickson APRN [facility] [place] [address] Diabetes Social History Tobacco Use Types Packs/Day [...] Telephone Encounter - Elsie Erickson APRN - 09/29/2022 2:52 PM EDT Called to check in re: blood glucose management. No answer, Left msg and I will return call tomorrow. documented in this encounter Plan of Treatment Upcoming Encounters Date Type Department Care Team (Late st Contact Info) Description 12/07/2023 1:00 PM EDT Appointment [place] [phone] 12/07/2023 2:00 PM EDT Office Visit [place] [address] Greonimo Mojica MD [facility] [place] [address] 12/27/2023 11:30 AM EDT Office [place] [phone] Noe Cuenca MD [facility] [place] [address] Scheduled Procedures Name Priority Associated Diagnoses Date/Ti me EGD, UPPER GI ENDOSCOPY (WRV U 2.09) Peptic stricture of esophagus documented as of this encounter Visit Diagnoses Not on filedocumented in this encounter Care Teams Hoop Riveting Machine Operator Helper Relationship Specialty Start Date End Date Ana Gillespie APRN [address] [place] [address] PCP - General Family Medicine 02/03/19 documented as of this encounter
--- OUTSIDE RECORDS SUMMARY | 2023-12-03 14:57 | XMS_ITS | Encounter Summary ---
Author Organization [facility] [place] [address] Care Team Providers Care It Architecture Consultant Name Role Phone Ana Gillespie VAUGHN Primary Care Provider [phone] Encounter Details Date Type Department Care Team (Late Contact Info) Description 09/29/2022 Tele[place] [phone] Elsie Erickson APRN [facility] [place] [address] Social History Tobacco Use Types Packs/Day Years [...] 12/07/2023 1:00 PM EDT [place] [phone] 12/07/2023 2:00 PM EDT Office [place] [address] Geronimo Mojica MD [facility] THORACIC SURGERY [place], [place] [phone] 12/27/2023 11:30 AM EDT [place] [address] Noe Cuenca MD [facility] [place] [address] Scheduled Procedures Name Priority Associated Diagnoses Date/Ti me EGD, UPPER GI ENDOSCOPY (WRV U 2.09) Peptic stricture of esophagus documented as of this encounter Visit Diagnoses Not on filedocumented in this encounter Care Teams It Architecture Consultant Relationship Specialty Start Date End Date Ana Gillespie APRN [address] [place] [address] PCP - General Family Medicine 02/03/19 documented as of this encounter
--- OUTSIDE RECORDS SUMMARY | 2023-12-03 14:57 | XMS_ITS | Encounter Summary ---
[place] [address] Care Team Providers Care Cap Blocker Name Role Phone Ana Gillespie VAUGHN Primary Care Provider [phone] Reason for Referral * Diagnostic Test (Routine) - Closed Specialty Diagnoses / Procedures Referred By Esperanza rodríguez Referred To Contact Radiology Diagnoses Gastrostomy tube in place Procedures IR Suture Release Moustapha Hart MD [facility] [place] [address] [place] [address] Referral ID Status Reason Start Date Expiration Date V isits Requested Visits Authorized [id number] Closed Specialty Service Requested 09/11/2022 03/14/2024 1 1 Reason for Visit * Auth/Cert (Routine) Specialty Diagnoses / Procedures Referred By Esperanza rodríguez Referred To Contact Diagnoses Shock CARDIOGENIC PULMONARY EDEMA Procedures ER Carlos Melton MD [facility] [place] [address] [facility] Referral ID Status Reason Start Date Expiration Date Visits Re quested Visits Authorized [id number] 1 1 Encounter Details Date Type Department Care Team (Latest Contact Info) Description 09/25/2022 9:00 AM EDT - 09/25/2022 11:59 PM EDT Hospital En[place] [address] Discharge Disposition: Home [...] Dispensed Refills Start Date End Date insulin aspart U-100 (NovoLOG FlexPen U-100 Insulin) [...] 180 tablet 3 10/20/2021 Blood Sugar Diagnostic (ThinkNearTOUCH ULTRA TEST) StripIndications:Typ e 2 diabetes mellitus, [...] meter kit. 1 each 0 12/14/2014 Insulin [place], Disposable, (BD INSULIN PEN NEEDLE UF MINI) 31 x 07/23 NeedleIndications:Di abetes mellitus type 2, uncontrolled 1 Device by [facility] [place].(Non-Drug; Combo Route) route 3 times daily as needed. 100 each 11 12/13/2014 insulin isophane- NPH 100 unit/mL (3 mL) Insulin Pen Administer 15 units at start of your feed and 15 units 6 hours into your feed 10 mL 12 09/25/2022 12/08/2022 ergocalciferoL, vitamin D2, (vitamin D2) 200 mcg/mL (8,000 unit/mL) Drops 6.25 mLs by Per G Tube route once a week for 3 doses. 18.75 mL 09/29/2022 10/14/2022 buPROPion (Wellbutrin) 100 mg tablet 1 tablet [...] mouth daily. 45 tablet 3 09/24/2022 02/25/2023 sucralfate (Carafate) 1 gram Tablet Take 1 tablet by mouth 4 times daily. 360 tablet 3 08/04/2021 10/22/2022 QUEtiapine (SEROquel) 50 mg Tablet Take 50 mg by mouth daily. 02/10/2020 04/30/2023 documented as of this encounter Progress Notes * Abby Peter RN - 09/25/2022 9:47 AM EDT G-tube sutures removed without issue. Site cleansed with sterile NS and new dressing applied. Instructions reviewed with patient, , and son, all verbalized understanding. Gastropexy suture removal instructions added to AVS in admission encounter and below. [facility] INTERVENTIONAL RADIOLOGY NURSES NOTE FOR GASTROPEXY SUTURE REMOVAL You have had your Gastropexy sutures removed from around your gastrostomy tube. This information is designed to inform you of the signs and symptoms of an infection. Wound infection may occur at any time, but it is evident more often 4-7 days after your procedure. Signs and symptoms may involve one or more the following: Temperature equal to or greater than 101 degrees Fahrenheit. Swelling and redness in or around the wound. Red streaks on your skin near the wound. Foul smelling or purulent drainage from the wound. Shaking chills. If you suspect an infection related to your procedure please contact your healthcare provider. When to call the Interventional Radiology Department: Please call with any questions or concerns. If it is during regular office hours, please call [phone]. If it is after regular office hours, or on weekends or holidays, please call [phone] and ask to speak to the Visual Education Teacher substance addiction coordinator for Interventional Radiology. Revised 02/23/19 documented in this encounter Plan of Treatment Upcoming Encounters Date Type Department Care Team (Late st Contact Info) Description 12/07/2023 1:00 PM EDT Appointment [place] [address] 12/07/2023 2:00 PM EDT Office [place] [phone] Geronimo Mojica MD [facility] [place] [address] 12/27/2023 11:30 AM EDT Office [place] [address] Noe Cuenca MD [facility] [place] [address] Scheduled Procedures Name Priority Associated Diagnoses Date/Ti me EGD, UPPER GI ENDOSCOPY (WRV U 2.09) Peptic stricture of esophagus documented as of this encounter Procedures Procedure Name Priority Date/Time Associated Diagnosis Comments IR SUTURE RELEASE Routine 09/25/2022 9:5 6 AM EDT Gastrostomy tube in place documented in this encounter Results * IR Suture Release (09/25/2022 9:56 AM EDT) Narrative [facility] - 09/25/2022 10:16 AM EDT This exam is auto-finalizing. No interpretation was done. Moustapha Hart MD IMG IR ORDERABLES [place], [place] documented in this encounter Visit Diagnoses Diagnosis Gastrostomy tube in place documented in this encounter Care Teams Cap Blocker Relationship Specialty Start Date End Date Ana Gillespie APRN [address] [place] [address] PCP - General Family Medicine 02/03/19 documented as of this encounter
--- OUTSIDE RECORDS SUMMARY | 2023-12-03 14:57 | XMS_ITS | Encounter Summary ---
[place] [address] Care Team Providers Care Piece Presser Name Role Phone Ana Gillespie APRN Primary Care Provider [phone] Reason for Referral * Consultation (Routine) - Closed Specialty Diagnoses / Procedures Referred By Esperanza t Referred To Contact Diagnoses Gastrojejunostomy tube status Ana Gillespie APRN [address] [place] [address] [address] Referral ID Status Reason Start Date Expiration Date V isits Requested Visits Authorized [id number] Closed Continuity of Care PCP Updated and/or Approved 11/17/2022 11/17/2023 12 12 Encounter Details Date Type Department Care Team (Latest Contact Info) Description 11/17/2022 Transcribe Orders eDH Incoming Referrals [phone] Ana Gillespie APRN [address] [place] [address] Gastrojejunostomy tube status Social History Tobacco Use Types Packs/Day Years [...] 12/07/2023 1:00 PM EDT Appointment [place] [address] 12/07/2023 2:00 PM EDT Office [place] [phone] Geronimo Mojica MD [facility] [place] [address] 12/27/2023 11:30 AM EDT Office [place] [phone] Noe Cuenca MD [facility] [place] [address] Scheduled Procedures Name Priority Associated Diagnoses Date/Ti me EGD, UPPER GI ENDOSCOPY (WRV U 2.09) Peptic stricture of esophagus Scheduled Referrals Name Type Priority Associated Diagnoses Orde r Schedule Referral to Nutrition Services Outpatient Referral Routine Gastrojejunostomy tube status Ordered: 11/17/2022 documented as of this encounter Visit Diagnoses Diagnosis Gastrojejunostomy tube status Intestinal bypass or anastomosis status documented in this encounter Care Teams Piece Presser Relationship Specialty Start Date End Date Ana Gillespie APRN [address] [place] [address] PCP - General Family Medicine 02/03/19 documented as of this encounter
--- OUTSIDE RECORDS SUMMARY | 2023-12-03 14:57 | XMS_ITS | Encounter Summary ---
Author Organization [facility] [place] [address] Care Team Providers Care Track Grinder Name Role Phone Ana Gillespie VAUGHN Primary Care Provider [phone] Encounter Details Date Type Department Care Team (Late st Contact Info) Description 10/29/2022 Telephone [place] [phone] Elsie Erickson APRN [facility] [address] Social History Tobacco Use Types Packs/Day Years [...] Telephone Encounter - Elsie Erickson APRN - 10/29/2022 4:27 PM EDT Summary: attempt to review blood sugars Call to Jennifer. She reports that she is tired, states her blood sugars are high because of the tube feeding she can not report the dose of NPH that they are currently using or her blood sugars. She attempted to find Campso for details though he was unavailable. Will attempt to call back tomorrow. documented in this encounter Plan of Treatment Upcoming Encounters Date Type Department Care Team (Late st Contact Info) Description 12/07/2023 1:00 PM EDT Appointment [place] [address] 12/07/2023 2:00 PM EDT Office [place] [phone] Geronimo Mojica MD [facility] [place] [address] 12/27/2023 11:30 AM EDT Office [place] [phone] Noe Cuenca MD [facility] [place] [address] Scheduled Procedures Name Priority Associated Diagnoses Date/Ti me EGD, UPPER GI ENDOSCOPY (WRV U 2.09) Peptic stricture of esophagus documented as of this encounter Visit Diagnoses Not on filedocumented in this encounter Care Teams Track Grinder Relationship Specialty Start Date End Date Ana Gillespie APRN [address] [place] [address] PCP - General Family Medicine 02/03/19 documented as of this encounter
--- OUTSIDE RECORDS SUMMARY | 2023-12-03 14:57 | XMS_ITS | Encounter Summary ---
Author Organization [facility] [place] [address] Care Team Providers Care Counterintelligence Specialist Name Role Phone Jose MiguelAna VAUGHN Primary Care Provider [phone] Reason for Visit * Reason Onset Date Comments Diabetes 09/30/2022 Encounter Details Date Type Department Care Team (Late st Contact Info) Description 09/30/2022 Telephone [place] [address] Elsie Erickson CENTRIFUGAL EXTRACTOR OPERATOR [facility] [place] [address] Diabetes Social History Tobacco Use Types Packs/Day [...] Encounter - Elsie Erickson APRN - 09/30/2022 10:42 AM EDT Spoke with Campos. He felt the NPH was not doing anything and so stopped this insulin and has been correcting her with lispro only. He continues to administer the lantus at 10 units daily. Wereviewed the purpose of the NPH at start of feed and then 6 hours into feed to cover the carbohydrates in the feed. The corrections required on this regimen were to be added back into the NPH with a goal to minimize injections and BG checks for Jennifer during this feed period. Campos reported understanding and will start back with NPH plan at 15 units at start of feed and 6 hours into feed, he will then add corrections required at hour 6 into the next mornings NPH. I will reach out next week toreview plan and he is in agreement with this. documented in this encounter Plan of Treatment Upcoming Encounters Date Type Department Care Team (Late st Contact Info) Description 12/07/2023 1:00 PM EDT [place] [address] 12/07/2023 2:00 PM EDT Office [place] [phone] Geronimo Mojica MD [facility] [place] [address] 12/27/2023 11:30 AM EDT [place] [phone] Noe Cuenca MD [facility] [place] [address] Scheduled Procedures Name Priority Associated Diagnoses Date/Ti me EGD, UPPER GI ENDOSCOPY (WRV U 2.09) Peptic stricture of esophagus documented as of this encounter Visit Diagnoses Not on filedocumented in this encounter Care Teams Counterintelligence Specialist Relationship Specialty Start Date End Date Ana Gillespie APRN [address] [place] [address] PCP - General Family Medicine 02/03/19 documented as of this encounter
--- OUTSIDE RECORDS SUMMARY | 2023-12-03 14:57 | XMS_ITS | Encounter Summary ---
Author Organization [facility] Address [facility] [place] [address] Care Team Providers Care Rubber Tubing Backer Name Role Phone Ana Gillespie APRN Primary Care Provider [phone] Encounter Details Date Type Department Care Team (Late st Contact Info) Description 11/18/2022 Orders [place] [phone] Dixie Tadeo MD [facility] [place] [address] Social History Tobacco Use Types Packs/Day Years [...] 12/07/2023 1:00 PM EDT Appointment [place] [address] 12/07/2023 2:00 PM EDT Office [place] [address] Geronimo Mojica MD [facility] THORACIC SURGERY [place], [place] [phone] 12/27/2023 11:30 AM EDT Office [place] [address] Noe Cuenca MD [facility] [place] [address] Scheduled Procedures Name Priority Associated Diagnoses Date/Ti me EGD, UPPER GI ENDOSCOPY (WRV U 2.09) Peptic stricture of esophagus documented as of this encounter Visit Diagnoses Not on filedocumented in this encounter Care Teams Rubber Tubing Backer Relationship Specialty Start Date End Date Ana Gillespie APRN [address] [place] [address] PCP - General Family Medicine 02/03/19 documented as of this encounter
--- OUTSIDE RECORDS SUMMARY | 2023-12-03 14:57 | XMS_ITS | Encounter Summary ---
Author Organization [facility] [place] [address] Care Team Providers Care Piano Mover Name Role Phone Ana Gillespie VAUGHN Primary Care Provider [phone] Encounter Details Date Type Department Care Team (Latest Contact Info) Description 10/16/2022 Unscheduled Encounter Endocrinology at [facility] [place] [phone] Elsie Erickson APRN [facility] [place] [address] Type 2 diabetes mellitus with hyperglycemia, with long-term current use of insulin Social History Tobacco Use Types Packs/Day Years [...] as of this encounter Progress Notes * Elsie Erickson APRN - 10/16/2022 10:49 AM EDTSummary: Follow up to review blood sugar and insulin management Interval Hx: Call to Melissa to review blood sugars and insulin management. We reviewed when to use the short acting insulin as Campos is correcting higher blood sugars with NPH. They continue to use Lantus 10 units daily, NPH 15 units at start of feed and 6 hours into feed. Feed begins 0700, BGs 200at 1pm and 190 at end of feed. Campos states in general BGs 150 to 250s. He agrees to increase NPH to 17 units at start of feed and 6 hours into feed. We will touch base again in the next few weeks to make sure BGs are coming down consistently below 180s to maximize nutrition for Jennifer. New plan: Lantus 10 units daily NPH 17 units at start of feed and 6 hours into feed Continue with correction at discharge 09/25/2022 plan at discharge PLAN FOR DISCHARGE 1. A member from the glucose management team will reach out to check in next week to review blood sugars and insulin use and guide you on increasing lantus dose. Insulin Discharge Instructions Please test blood sugars in morning before start of feed cycle and every 6 hours during feed. Instructions for Lantus Insulin (LONG ACTING) Inject LANTUS 10 units insulin every morning to support your basal background insulin requirements.Use this insulin daily, even if feed is held. NPH Insulin (intermediate acting) will be used to cover the carbohydrates in your feed. Administer 15 units at start of your feed and 15 units 6 hours into your cycled feed. 1. Check your blood sugar 6 hours and 12 hours into your feed. If your blood sugars are elevated you can correct Using Short acting novolog or Humalog insulin using the following scale Instructions for CORRECTION Humalog or Novolog Insulin This is the rapid-acting insulin, used to correct high BG Blood Sugar NOVOLOG DOSE 150-170 GIVE 1 unit 171-190 GIVE 2 units 191-210 GIVE 3 units 211- 230 GIVE 4 units 231-250 GIVE 5 units >250 GIVE 6 units Treatment of Low Blood Sugar (Hypoglycemia) If your BG is lower than 80, you are likely to feel shaky, sweaty and lightheaded. This is a signalthat your body needs more sugar. Through your tube you can administer 4 oz of juice or clear (non diet) soda such as sprite or 7 up. If your BG is very low <50, you can double the amount (8 oz) above Sit and rest and you should feel better within a few minutes. Once you are feeling better, try to determine why your BG was so low. Was feed held? too much insulin? Understanding the cause my help you to avoid another low BG in the future. documented in this encounter Plan of Treatment Upcoming Encounters Date Type Department Care Team (Late st Contact Info) Description 12/07/2023 1:00 PM EDT [place] [address] 12/07/2023 2:00 PM EDT Office [place] [phone] Geronimo Mojica MD [facility] [place] [address] 12/27/2023 11:30 AM EDT [place] [address] Noe Cuenca MD [facility] [place] [address] Scheduled Procedures Name Priority Associated Diagnoses Date/Ti me EGD, UPPER GI ENDOSCOPY (WRV U 2.09) Peptic stricture of esophagus documented as of this encounter Visit Diagnoses Diagnosis Type 2 diabetes mellitus with hyperglycemia, with long-term current use of insulin documented in this encounter Care Teams Piano Mover Relationship Specialty Start Date End Date Ana Gillespie APRN [address] [place] [address] PCP - General Family Medicine 02/03/19 documented as of this encounter
--- OUTSIDE RECORDS SUMMARY | 2023-12-03 14:57 | XMS_ITS | Encounter Summary ---
[place] [address] Care Team Providers Care Rn Home Health Name Role Phone Ana Gillespie VAUGHN Primary Care Provider [phone] Reason for Visit * Auth/Cert (Routine) Specialty Diagnoses / Procedures Referred By Esperanza t Referred To Contact Diagnoses Shock CARDIOGENIC PULMONARY [place]MA Procedures ER CLAUDIOI Carlos Terry MD [facility] [place] [address] [facility] Referral ID Status Reason Start Date Expiration Date Visits Re quested Visits Authorized [id number] 1 1 Encounter Details Date Type Department Care Team (Late st Contact Info) Description 09/09/2022 11:32 PM EDT Anesthesia Event [place] [address] Chon Moctezuma MD [facility] [place] [address] Darin Chaves MD [facility] [place] [address] Anesthesia Record Procedure Summary Procedure Name Responsible Anesthesiologist Anesthesia Start Time Anesthesia Stop Time EGD, UPPER GI ENDOSCOPY (WRVU 2.09) Chon Moctezuma MD 09/09/22 2332 09/10/22 0036 Events Date Time Event Comment 09/09/2022 1948 2332 AN Verify 2332 Start 2332 An Start Data 2339 An Induction 2340 An Intubation 2342 Anesthesia Ready 09/10/2022 0022 Extubation/LMA Out 0025 an stop data 0034 Recovery or ICU Handoff Sayra ent care was transferred to the destination unit staff after review of the patient's medical history, current anesthetic/surgical status and plan, according to the Provider Handoff Checklist. 0036 Stop Meds Name Total fentaNYL 100 mcg Propofol 120 mg PHENYLephrine 400 mcg ePHEDrine 15 mg Ondansetron 8 mg PHENYLephrine INF 320 mcg ceFAZolin 2 g Sodium Chloride 0.9% 600 mL * Agents Name O2 * Blood No blood administrations on file. Lines, Drains, and Airways Type Details Placement Removal Incision Left, anterior, lateral; greater trochanter; Hip repair; 09/25/22; 1021 08/20/22 1754 by 09/25/22 1021 by Leann Harding RN (RETIRED) PICC Line - Double Lumen 08/19/22; 1654; basilic vein (medial side of arm), right; pressure injectable catheter ([id number]); 5 Fr; 0 cm; 33 cm; 33 cm; placement verified by x-ray; superior vena cava; CCampRNVAS; distraction, intradermal injection; confirmed 33cm. of catheter removed; no longer indicated, removed per policy/procedure, site care per policy/procedure, catheter/device intact; 09/16/22; 0933 08/19/22 1655 by Johanne Jacobo RN 09/16/22 0933 by Simba Elizondo RN External Catheter 08/23/22; 1100; 09/13/22; 0800 08/23/22 1100 by Libby Zuleta RN 09/13/22 0800 by Elsie Nunez RN NG/OG Tube 09/04/22; 2049; smal l bore, nasogastric; 10 Fr; right nostril; lidocaine gel; stomach; feeding administration, medication administration; 60; Taped; inserted by ; 09/10/22; 0145 (Removed in OR per report) 09/04/222049 by Samia Henson RN 09/10/22 0145 by Sofia Montoya RN Incision 09/10/22; 0005; Left ; abdomen; 09/25/22; 1022 09/10/22 0005 by Crissy Jordan RN 09/25/22 1022 by Leann Harding RN documented in this encounter Social History [...] OR Notes * Anesthesia Postprocedure Evaluation - Darin Chaves MD - 09/10/2022 12:41 AM EDT Department of Anesthesiology Post-procedure Note Patient: Jennifer Irving Procedure Summary Date: 09/09/22 Room / Location: [place] [address] [facility] MAIN OR Anesthesia Start: 2331 Anesthesia Stop: Procedure: EGD, UPPER GI ENDOSCOPY (WRVU 2.09) Diagnosis: (failed MBS with aspitration risk) Surgeons: Ayo Russ MD Responsible Provider: Chon Moctezuma MD Anesthesia Type: general ASA Status: 3 All Anesthesia Providers: Anesthesiologist: Chon Moctezuma MD Mailing Clerk: Darin Chaves MD Vitals Value Taken Time BP Temp Pulse Resp SpO2 Pain Level Patient Location: PACU/MERGED WITH [facility] Level of Consciousness: Conscious but Sleepy Pain Management: Satisfactory Analgesia PONV: None Cardiovascular Status: Hemodynamically Stable Respiratory Status: Stable Respiratory Status Postoperative Fluid Status: Intravascular EUvolemia Possible Anesthetic Complications: NONE apparent at time of evaluation Final Primary Anesthesia Type: General (The anesthetic type performed was the same as planned.) Comments: * Anesthesia Preprocedure Evaluation - Chon Moctezuma MD - 09/09/2022 7:55 PM EDT Pre-Anesthesia Evaluation for: Jennifer Irving a 62 y.o. female. Procedure(s): ENDOSCOPY W DIRECTED PLACEMENT PERCUTANEOUS GASTROSTOMY TUBE-PEG (WRVU 3.56) Patient Active Problem List Diagnosis Date Noted ??? 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 Bipolar disorder 02/12/2022 ??? BMI 37.0-37.9, adult 12/13/2014 ??? T2DM (type 2 diabetes mellitus) 12/12/2014 ??? GERD (gastroesophageal reflux disease) 03/15/2013 ??? Farrell's esophagus 03/15/2013 Past Medical History: Diagnosis Date ??? Bipolar disorder 02/12/2022 Past Surgical History: Procedure Laterality Date ??? PRO COLONOSCOPY, BIOPSY N/A 03/20/2016 COLONOSCOPY FLEXIBLE, WITH BX performed by David Dejesus MD at [facility] ENDOSCOPY ??? PRO COLONOSCOPY, DIAGNOSTIC N/A 03/01/2020 COLONOSCOPY, DIAGNOSTIC performed by David Dejesus MD at [facility] ENDOSCOPY ??? PRO ENDOSCOPIC US EXAM, ESOPH N/A 03/31/2022 UPPER EUS- ENDOSCOPIC ULTRASOUND performed by David Dejesus MD at [facility] ENDOSCOPY ??? PRO UPPER GI ENDOSCOPY, BIOPSY N/A 04/03/2014 UPPER GASTROINTESTINAL ENDOSCOPY,WITH BIOPSY SINGLE OR MULTIPLE performed by David Dejesus MDat [facility] ENDOSCOPY ??? PRO UPPER GI ENDOSCOPY, BIOPSY N/A 03/20/2016 EGD WITH BIOPSY performed by David Dejesus MD at [facility] ENDOSCOPY ??? PRO UPPER GI ENDOSCOPY, BIOPSY N/A 11/22/2018 EGD WITH BIOPSY (WRVU 2.49) performed by David Dejesus MD at [facility] ENDOSCOPY ??? PRO UPPER GI ENDOSCOPY, BIOPSY N/A 03/01/2020 UPPER GASTROINTESTINAL ENDOSCOPY,WITH BIOPSY SINGLE OR MULTIPLE (WRVU 2.49) performed by David Dejesus MD at [facility] ENDOSCOPY ??? PRO UPPER GI ENDOSCOPY, BIOPSY N/A 09/23/2021 EGD WITH BIOPSY (WRVU 2.49) performed by David Dejesus MD at [facility] ENDOSCOPY ??? PRO UPPER GI ENDOSCOPY, BIOPSY N/A 03/31/2022 EGD WITH BIOPSY (WRVU 2.49) performed by David Dejesus MD at [facility] ENDOSCOPY ??? PRO UPPER GI ENDOSCOPY, BIOPSY N/A 07/03/2022 EGD WITH BIOPSY (WRVU 2.49) performed by David Dejesus MD at [facility] ENDOSCOPY ??? PRO UPPER GI ENDOSCOPY, DIAGNOSTIC N/A 04/03/2014 EGD, UPPER GI ENDOSCOPY performed by David Dejesus MD at [facility] ENDOSCOPY ??? PRO UPPER GI ENDOSCOPY, DIAGNOSTIC N/A 03/01/2020 EGD, UPPER GI ENDOSCOPY performed by David Dejesus MD at [facility] ENDOSCOPY Social History Tobacco Use ??? Smoking status: [...] Physical Exam: Preprocedure Vitals Current as of 09/09/221954 BP: 129/58 Pulse: 78 Resp: 18 SpO2: 96 Temp: 36.8 ??C (98.2 ??F) Height: 152.4 cm (5') (08/19/22) Weight: 64.5 kg (142 lb 1.6 oz) (09/09/22) BMI: 27.75 IBW: 45.5 kg (100 lb 4.9 oz) Last edited 09/09/22 184 by MG Airway Assessment: Mallampati: II TM distance: >3 FB Neck ROM: full Cardiovascular Assessment: Rhythm: regular Pulmonary Assessment: unlabored breathing pulmonary exam normal Dental Assessment: - normal exam Misc Assessment: Patient is wearing No contact(s). IV access: Peripheral line Last Filed Perioperative Cognitive Screening None Anesthesia Plan: ASA 3 general, with a(n) intravenous induction 62f who presents for endoscopy/PEG placement. PMH: GERD/Barretts esophagus,T2DM, obesity, bipolar disorder. Tolerated multiple MACs before. No airway history on file Plan: MARIBEL Chaves MD Anesthesiology PGY4 Region - Other Informed Consent: Anesthesia Screening documented in this encounter Miscellaneous Notes * Addendum Note - Darin Chaves MD - 09/10/2022 7:43 AM EDT Addendum created 09/10/2243 by Darin Chaves MD Intraprocedure Meds edited documented in this encounter Plan of Treatment Upcoming Encounters Date Type Department Care Team (Late st Contact Info) Description 12/07/2023 1:00 PM EDT Appointment [place] [address] 12/07/2023 2:00 PM EDT Office Visit [place] [address] Geronimo Mojica MD [facility] [place] [address] 12/27/2023 11:30 AM EDT Office [place] [address] Noe Cuenca MD [facility] [place] [address] Scheduled Procedures Name Priority Associated Diagnoses Date/Ti me EGD, UPPER GI ENDOSCOPY (WRV U 2.09) Peptic stricture of esophagus documented as of this encounter Visit Diagnoses Not on filedocumented in this encounter Administered Medications Inactive Administered Medications - up to 3 most recent administrations Medication Order MAR Action Action Date Dose Rate Site ceFAZolin (Ancef) 1 g in dextrose 5% 50 mL infusion Intravenous, PRN, Starting on Wed09/09/22 at 2342, Until Betty 09/10/22 at 0042, Administer over 30 Minutes, Anesthesia Intra-op Given 09/09/2022 11:42 PM EDT 2 g ePHEDrine sulfate (5 mg/mL) multi-dose injection Intravenous, PRN, Starting on Wed09/09/22 at 2346, Until Betty 09/10/22 at 0042, Anesthesia Intra-op, Routine Given 09/09/2022 11:56 PM EDT 5 mg Given 09/09/2022 11:50 PM EDT 5 mg Given 09/09/2022 11:46 PM EDT 5 mg fentaNYL (pf) (50 mcg/mL) multi-dose injection Intravenous, PRN, Starting on Wed09/09/22 at 2339, Until Betty 09/10/22 at 0042, Anesthesia Intra-op, Routine Given 09/10/2022 12:08 AM EDT 50 mcg Given 09/09/2022 11:39 PM EDT 50 mcg ondansetron (pf) (Zofran) (2 mg/mL) injection Intravenous, PRN, Starting on Wed09/09/22 at 2345, Until Betty 09/10/22 at 0042, Anesthesia Intra-op, Routine Given 09/09/2022 11:45 PM EDT 8 mg PHENYLephrine (Anthony-Synephrine) (80 mcg/mL) in sodium chloride 0.9% 250 mL infusion Intravenous, CONTINUOUS PRN, Starting on Wed09/09/22 at 2358, Until Betty 09/10/22 at 0042, Anesthesia Intra-op, Routine New Bag 09/09/2022 11:58 PM EDT 20 mcg/min 15 mL/hr PHENYLephrine in NS (PF) (ANTHONY-SYNEPHRINE) 0.8 mg/10 mL (80 mcg/mL) multi-dose injection Syringe Intravenous, PRN, Starting on Wed09/09/22 at 2345, Until Betty 09/10/22 at 0042, Anesthesia Intra-op, Routine Given 09/09/2022 11:56 PM EDT 80 mcg Given 09/09/2022 11:50 PM EDT 160 mcg Given 09/09/2022 11:45 PM EDT 160 mcg propofoL (Diprivan) 10 mg/mL bolus injection (Anesthesia) Intravenous, PRN, Starting on Wed09/09/22 at 2339, Until Betty 09/10/22 at 0042, Anesthesia Intra-op Given 09/09/2022 11:39 PM EDT 120 mg sodium chloride 0.9% infusion Intravenous, CONTINUOUS PRN, Starting on Wed09/09/22 at 2332, Until Betty 09/10/22 at 0042, Anesthesia Intra-op New Bag 09/09/2022 11:32 PM EDT documented in this encounter Care Teams Rn Home Health Relationship Specialty Start Date End Date Ana Gillespie APRN [address] [place] [address] PCP - General Family Medicine 02/03/19 documented as of this encounter
--- OUTSIDE RECORDS SUMMARY | 2023-12-03 14:57 | XMS_ITS | Encounter Summary ---
Author Organization [facility] Address [facility] [address] Care Team Providers Care Registered Dietician Name Role Phone Ana Gillespie APRN Primary Care Provider [phone] Reason for Visit * Reason Onset Date Comments Disability Paperwork 10/09/2022 Completed L [employer]io Term Care Medicaid Intake Interview with Jennifer over the phone with Nery Potter from [place] [facility] Encounter Details Date Type Department Care Team (Late Contact Info) Description 10/09/2022 [place] [address] Alicia Gillis Disability 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 Interview with Jennifer over the phone with Nery Potter from [place] [facility] ) Social History Tobacco Use Types Packs/Day [...] 12/07/2023 1:00 PM EDT [place] [address] 12/07/2023 2:00 PM EDT Office [place] [address] Geronimo Mojica MD [facility] [place] [address] 12/27/2023 11:30 AM EDT [place] [address] Noe Cuenca MD [facility] [place] [address] Scheduled Procedures Name Priority Associated Diagnoses Date/Ti me EGD, UPPER GI ENDOSCOPY (WRV U 2.09) Peptic stricture of esophagus documented as of this encounter Visit Diagnoses Not on filedocumented in this encounter Care Teams Registered Dietician Relationship Specialty Start Date End Date Ana Gillespie APRN [address] [place] [address] PCP - General Family Medicine 02/03/19 documented as of this encounter
--- OUTSIDE RECORDS SUMMARY | 2023-12-03 14:57 | XMS_ITS | Encounter Summary ---
Author Organization [facility] [place] [address] Care Team Providers Care Pulmonary Function Technician Name Role Phone Ana Gillespie VAUGHN Primary Care Provider [phone] Reason for Visit * Auth/Cert (Routine) Specialty Diagnoses / Procedures Referred By Esperanza rodríguez Referred To Contact Diagnoses Shock CARDIOGENIC PULMONARY EDEMA Procedures ER Carlos Melton MD [facility] [address] [facility] Referral ID Status Reason Start Date Expiration Date Visits Re quested Visits Authorized [id number] 1 1 Encounter Details Date Type Department Care Team (Late st Contact Info) Description 09/11/2022 4:10 [place] [id number] Gt Urena MD [facility] [place] [address] Anesthesia Record Procedure Summary Procedure Name Responsible Anesthesiologist Anesthesia Start Time Anesthesia Stop Time PERCUTANEOUS GASTROSTOMY Gt Urena MD 09/11/22 1610 09/11/22 1723 Events Date Time Event Comment 09/11/2022 1504 1609 AN Verify 1610 Start 1614 An Start Data 1622 An Induction 1624 Anesthesia Ready 1653 Quick Note NG tube placed by proceduralist 1717 an stop data 1717 Handoff Intra-procedure anesthesia care was transferred after review of the patient's history, current anesthetic/surgical status and procedural plan, anticipated issues and expected post-operative course (including disposition.) Gt Lisa CLIENT APPLICATION SUPPORT SPECIALIST 1723 Recovery or ICU Handoff Sayra ent care was transferred to the destination unit staff after review of the patient's medical history, current anesthetic/surgical status and plan, according to the Provider Handoff Checklist. 1723 Stop Meds Name Total fentaNYL 100 mcg Propofol 80 mg PHENYLephrine 320 mcg Ondansetron 4 mg Dexamethasone 4 mg Propofol INF 345.72 mg Dexmedetomidine 12 mcg ceFAZolin 2 g PHENYLephrine INF 880 mcg Sodium Chloride 0.9% 0 mL * Agents Name O2 Air N2O * Blood No blood administrations on file. Lines, Drains, and Airways Type Details Placement Removal Incision Left, anterior, lateral; greater trochanter; Hip repair; 09/25/22; 1021 08/20/22 1754 by 09/25/22 1021 by Leann Harding, RN (RETIRED) PICC Line - Double Lumen 08/19/22; 1655; basilic vein (medial side of arm), right; pressure injectable catheter ([id number]); 5 Fr; 0 cm; 33 cm; 33 [...] RN 09/13/22 0800 by Elsie Nunez RN Incision 09/10/22; 0005; Left ; abdomen; 09/25/22; 1022 09/10/22 0005 by Crissy Jordan RN 09/25/22 1022 by Leann Harding RN NG/OG Tube 09/10/22; 0145 (Plac ed in OR per report. Found on assessment); small bore weighted (Dobhoff) (Per report); 67 (On assessment after OR); left nostril; Secured (Bridled); 09/11/22; 1900 (not present upon assessment) 09/10/22 0145 by Sofia Montoya RN 09/11/22 1900 by Rosie Anguiano, ERI documented in this encounter Social History Tobacco [...] OR Notes * Anesthesia Postprocedure Evaluation - Gt Urena MD - 09/11/2022 5:41 PM EDT Department of Anesthesiology Post-procedure Note Patient: Jennifer Irving Procedure Summary Date: 09/11/22 Room / Location: [facility] INTERVENTIONAL RADIOLOGY 2 / [facility] Anesthesia Start: 1610 Anesthesia Stop: 1723 Procedure: PERCUTANEOUS GASTROSTOMY Diagnosis: (DYSPHAGIA) Surgeons: Aiden Flores MD Responsible Provider: Gt Urena MD Anesthesia Type: general ASA Status: 3 All Anesthesia Providers: Anesthesiologist: Gt Urena MD CLIENT APPLICATION SUPPORT SPECIALIST: Jennifer Salomon CRNA; Gt Lisa CRNA Vitals Value Taken Time BP 117/55 09/11/22 1730 Temp 37 ??C (98.6 ??F) 09/11/22 1725 Pulse 73 09/11/22 1741 Resp 14 09/11/22 1741 SpO2 93 % 09/11/22 1741 Pain Level 0 09/11/22 1730 Vitals shown include unvalidated device data. Patient Location: PACU/[facility] Level of Consciousness: Awake and Alert Pain Management: Satisfactory Analgesia PONV: None Cardiovascular Status: At Baseline and Hemodynamically Stable Respiratory Status: At Baseline and Room Air Postoperative Fluid Status: Intravascular EUvolemia Possible Anesthetic Complications: NONE apparent at time of evaluation Final Primary Anesthesia Type: MAC (The anesthetic type performed was the same as planned.) Comments: Gt Urena MD * Anesthesia Preprocedure Evaluation - Gt Urena MD - 09/11/2022 1:41 PM EDT Pre-Anesthesia Evaluation for: Jennifer Irving a 62 y.o. female. Procedure(s): PERCUTANEOUS GASTROSTOMY Patient Active Problem List Diagnosis Date Noted [...] BX performed by David Dejesus MD at [facility] ENDOSCOPY ??? PRO COLONOSCOPY, DIAGNOSTIC N/A 03/01/2020 COLONOSCOPY, DIAGNOSTIC performed by David Dejesus MD at [facility] ENDOSCOPY ??? PRO ENDOSCOPIC US EXAM, ESOPH N/A 03/31/2022 UPPER EUS- ENDOSCOPIC ULTRASOUND performed by David Dejesus MD at [facility] ENDOSCOPY ??? PRO UPPER GI ENDOSCOPY, BIOPSY N/A 04/03/2014 UPPER GASTROINTESTINAL ENDOSCOPY,WITH BIOPSY SINGLE OR MULTIPLE performed by David Dejesus MDat [facility]COPY ??? PRO UPPER GI ENDOSCOPY, BIOPSY N/A 03/20/2016 EGD WITH BIOPSY performed by David Dejesus MD at [facility] ENDOSCOPY ??? PRO UPPER GI ENDOSCOPY, BIOPSY N/A 11/22/2018 EGD WITH BIOPSY (WRVU 2.49) performed by David Dejesus MD at [facility] ENDOSCOPY ??? PRO UPPER GI ENDOSCOPY, BIOPSY N/A 03/01/2020 UPPER GASTROINTESTINAL ENDOSCOPY,WITH BIOPSY SINGLE OR MULTIPLE (WRVU 2.49) performed by David Dejesus MD at [facility] ENDOSCOPY ??? PRO UPPER GI ENDOSCOPY, BIOPSY N/A 09/23/2021 EGD WITH BIOPSY (WRVU 2.49) performed by David Dejesus MD at [facility] ENDOSCOPY ??? PRO UPPER GI ENDOSCOPY, BIOPSY N/A 03/31/2022 EGD WITH BIOPSY (WRVU 2.49) performed by David Dejesus MD at [facility] ENDOSCOPY ??? PRO UPPER GI ENDOSCOPY, BIOPSY N/A 07/03/2022 EGD WITH BIOPSY (WRVU 2.49) performed by David Dejesus MD at [facility] ENDOSCOPY ??? PRO UPPER GI ENDOSCOPY, DIAGNOSTIC N/A 04/03/2014 EGD, UPPER GI ENDOSCOPY performed by David Dejesus MD at [facility] ENDOSCOPY ??? PRO UPPER GI ENDOSCOPY, DIAGNOSTIC N/A 03/01/2020 EGD, UPPER GI ENDOSCOPY performed by David Dejesus MD at [facility] ENDOSCOPY ??? PRO UPPER GI ENDOSCOPY, DIAGNOSTIC N/A 09/09/2022 EGD, UPPER GI ENDOSCOPY (WRVU 2.09) performed by Ayo Russ MD at [facility] MAIN OR Social History Tobacco Use ??? Smoking status: Former Years: Types: Cigarettes Quit [...] (100 lb 4.9 oz) Last edited 09/09/22 1844 by MG Airway Assessment: Mallampati: II TM distance: >3 FB Neck ROM: full Cardiovascular Assessment: Rhythm: regular Pulmonary Assessment: unlabored breathing pulmonary exam normal Dental Assessment: - normal exam Misc Assessment: Patient is wearing No contact(s). IV access: Peripheral line Last Filed Perioperative Cognitive Screening None Anesthesia Plan: ASA 3 general, with a(n) intravenous induction 62f who presents for IR PEG placement. PMH: GERD/Barretts esophagus,T2DM, obesity, bipolar disorder. Tolerated multiple MACs before. No airway history on file Plan: MAC vs LMA Region - Other Informed Consent: Anesthetic plan and risks discussed with patient. Plan discussed with CLIENT APPLICATION SUPPORT SPECIALIST and attending. Anesthesia Screening documented in this encounter Miscellaneous Notes * Addendum Note - Jennifer Salomon CRNA - 09/21/2022 4:11 PM EDT Addendum created 09/21/22 1611 by Jennifer Salomon CRNA Intraprocedure Meds edited documented in this encounter Plan of Treatment Upcoming Encounters Date Type Department Care Team (Late st Contact Info) Description 12/07/2023 1:00 PM EDT Appointment [place] [address] 12/07/2023 2:00 PM EDT Office Visit [place] [address] Geronimo Mojica MD [facility] [place] [address] 12/27/2023 11:30 AM EDT Office [place] [address] Noe Cuenca MD [facility] [place] [address] Scheduled Procedures Name Priority Associated Diagnoses Date/Ti [...] 50 mL infusion Intravenous, PRN, Starting on Wed09/11/22 at 1637, Until Wed09/11/22 at 1731, Administer over 30 Minutes, Anesthesia Intra-op Given 09/11/2022 4:37 PM EDT 2 g dexAMETHasone (Decadron) injection Intravenous, PRN, Starting on Wed09/11/22 at 1702, Until Wed09/11/22 at 1731, Anesthesia Intra-op, Routine Given 09/11/2022 5:02 PM EDT 4 mg dexmedeTOMIDine (Precedex) (4 mcg/mL) bolus injection (Anesthsia) Intravenous, PRN, Starting on Wed09/11/22 at 1614, Until Wed09/11/22 at 1731, Anesthesia Intra-op, Routine Given 09/11/2022 4:14 PM EDT 12 mcg fentaNYL (pf) (50 mcg/mL) multi-dose injection Intravenous, PRN, Starting on Wed09/11/22 at 1622, Until Wed09/11/22 at 1731, Anesthesia Intra-op, Routine Given 09/11/2022 4:44 PM EDT 34 mcg Given 09/11/2022 4:28 PM EDT 33 mcg Given 09/11/2022 4:22 PM EDT 33 mcg ondansetron (pf) (Zofran) (2 mg/mL) injection Intravenous, PRN, Starting on Wed09/11/22 at 1702, Until Wed09/11/22 at 1731, Anesthesia Intra-op, Routine Given 09/11/2022 5:02 PM EDT 4 mg PHENYLephrine (Anthony-Synephrine) (80 mcg/mL) in sodium chloride 0.9% 250 mL infusion Intravenous, CONTINUOUS PRN, Starting on Wed09/11/22 at 1658, Until Wed09/11/22 at 1731, Anesthesia Intra-op, Routine Rate/Dose Change 09/11/2022 5:04 PM EDT 40 mcg/min 30 mL/hr New Bag 09/11/2022 4:58 PM EDT 20 mcg/min 15 mL/hr PHENYLephrine in NS (PF) (ANTHONY-SYNEPHRINE) 0.8 mg/10 mL (80 mcg/mL) multi-dose injection Syringe Intravenous, PRN, Starting on Wed09/11/22 at 1649, Until Wed09/11/22 at 1731, Anesthesia Intra-op, Routine Given 09/11/2022 4:56 PM EDT 80 mcg Given 09/11/2022 4:54 PM EDT 80 mcg Given 09/11/2022 4:49 PM EDT 80 mcg propofoL (Diprivan) (10 mg/mL) infusion Intravenous, CONTINUOUS PRN, Starting on Wed09/11/22 at 1622, Until Wed09/11/22 at 1731, Anesthesia Intra-op, Routine Rate/Dose Change 09/11/2022 5:01 PM EDT 80 mcg/kg/min 30.96 mL/hr Rate/Dose Change 09/11/2022 4:50 PM EDT 100 mcg/kg/min 38. 7 mL/hr Rate/Dose Change 09/11/2022 4:44 PM EDT 125 mcg/kg/min 48. 375 mL/hr propofoL (Diprivan) 10 mg/mL bolus injection (Anesthesia) Intravenous, PRN, Starting on Wed09/11/22 at 1622, Until Wed09/11/22 at 1731, Anesthesia Intra-op Given 09/11/2022 4:54 PM EDT 20 mg Given 09/11/2022 4:26 PM EDT 30 mg Given 09/11/2022 4:22 PM EDT 30 mg sodium chloride 0.9% infusion Intravenous, CONTINUOUS PRN, Starting on Wed09/11/22 at 1619, Until Wed09/11/22 at 1731, Anesthesia Intra-op New Bag 09/11/2022 4:19 PM EDT documented in this encounter Care Teams Pulmonary Function Technician Relationship Specialty Start Date End Date Ana Gillespie APRN [address] [place] [address] PCP - General Family Medicine 02/03/19 documented as of this encounter
--- OUTSIDE RECORDS SUMMARY | 2023-12-03 14:58 | XMS_ITS | Encounter Summary ---
Author Organization [facility] Address [facility] [place] [address] Care Team Providers Care Film Recordist Name Role Phone Ana Gillespie VAUGHN Primary Care Provider [phone] Encounter Details Date Type Department Care Team (Late st Contact Info) Description 08/14/2022 Telephone Cardiology at [address] [phone] Jesenia Mejía MD [facility] [place] [address] Social History Tobacco Use Types Packs/Day Years [...] encounter Miscellaneous Notes * Telephone Encounter - Jesenia Mejía MD - 08/14/2022 5:36 PM EDT Telephone Triage Note Initial Contact Date: 08/14/2022 Initial Contact Time: 17:36 Patient Location: [facility] Provider: Dr. Sevilla Presenting Symptoms per OSH: Ms. Irving is a 62 y/o F w/ PMH morbid obesity, T2DM who presented after a mechanical fall and left hip fracture s/p ORIF (admitted 08/08 - 08/10) and re- presented 08/12 in acute hypoxic respiratory failure with altered mental status. On EMS arrival patient was found to be altered with an SpO2 of 70%. She was given narcan with improvement in mental status (had been taking oxycodone after the hip fracture). Initial troponins were negative x3. Patient was thought to have a pneumonia and treated with zosyn -> cefepime. Had been sating well on NC. Today patient became acutely more hypoxic requiring CPAP. CXR showed worsening bilateral infiltrates and TTE was performed and was significant for an LVEF of 25%. Troponin 1600. Patient remains altered and unable to consent, but her indicates full code status and [facility] Pertinent Diagnostic Findings: - Troponin-I 1686 (ULN 60) - Pro-BNP > 35,000 - ECG sinus tachycardia with PVCs, anterior Q waves OSH Interventions: - Dobutamine 2.5 mcg/kg/shawanda - Lasix gtt 5 mg/hr - Heparin gtt - Aspirin 300 rectal BID (after hip) Plan: - Transfer to [facility] - Plavix load Above recommendations/plans are based on my conversation with the referring provider. I have not personally interviewed or examined this patient. Jesenia Mejía MD Forest Officer PGY-5 [facility] documented in this encounter Plan of Treatment Upcoming Encounters Date Type Department Care Team (Late st Contact Info) Description 12/07/2023 1:00 PM EDT [place] [phone] 12/07/2023 2:00 PM EDT Office Visit Thoracic Surgery at [place] [phone] Geronimo Mojica MD [facility] [place] [address] 12/27/2023 11:30 AM EDT [place] [address] Noe Cuenca MD [facility] [place] [address] Scheduled Procedures Name Priority Associated Diagnoses Date/Ti me EGD, UPPER GI ENDOSCOPY (WRV U 2.09) Peptic stricture of esophagus documented as of this encounter Visit Diagnoses Not on filedocumented in this encounter Care Teams Film Recordist Relationship Specialty Start Date End Date Ana Gillespie APRN [address] [place] [address] PCP - General Family Medicine 02/03/19 documented as of this encounter
--- OUTSIDE RECORDS SUMMARY | 2023-12-03 14:58 | XMS_ITS | Encounter Summary ---
Author Organization [facility] [place] [address] Care Team Providers Care Supply Service Worker Name Role Phone Ana Gillespie VAUGHN Primary Care Provider Encounter Details Date Type Department Care Team (Late st Contact Info) Description 08/14/2022 Ancillary Procedure [place] [phone] Social History Tobacco Use Types Packs/Day Years [...] 12/07/2023 1:00 PM EDT [place]ointment [place] [phone] 12/07/2023 2:00 PM EDT Office [place] [phone] Geronimo Mojica MD [facility] [place] [address] 12/27/2023 11:30 AM EDT [place] [phone] Noe Cuenca MD [facility] DR PULMONARY MEDICINE [place], [place] [phone] Scheduled Procedures Name Priority Associated Diagnoses Date/Ti me EGD, UPPER GI ENDOSCOPY (WRV U 2.09) Peptic stricture of esophagus documented as of this encounter Procedures Procedure Name Priority Date/Time Associated Diagnosis Comments FILM LIBRARY STORAGE ONLY DX CHEST Routine 08/14/2022 12:00 AM EDT documented in this encounter Results * Film Library- Storage Only DX Chest (08/14/2022 12:00 AM EDT) Narrative Dicom, Auditing User - 08/15/2022 8:43 AM EDT This exam is auto-finalizing. It's purpose is for storage only. Ayo Serna MD IMG FILM LIBRARY ORD ERABLES documented in this encounter Visit Diagnoses Not on filedocumented in this encounter Care Teams Supply Service Worker Relationship Specialty Start Date End Date Ana Gillespie APRN [address] [place] [address] PCP - General Family Medicine 02/03/19 documented as of this encounter
--- OUTSIDE RECORDS SUMMARY | 2023-12-03 14:58 | XMS_ITS | Encounter Summary ---
Author Organization [facility] Address [facility] [place] [address] Care Team Providers Care Stem Cutter Name Role Phone Ana Gillespie VAUGHN Primary Care Provider [phone] Reason for Visit * Consultation (Routine) - Closed Specialty Diagnoses / Procedures Referred By Esperanza rodríguez Referred To Contact Neurology Diagnoses Primary parkinsonism David Dejesus MD [facility] [place] [address] [facility] [address] [place] [address] Referral ID Status Reason Start Date Expiration Date V isits Requested Visits Authorized [id number] Closed Consult, Test & Treat 09/23/2021 09/23/2022 1 1 Encounter Details Date Type Department Care Team (Late st Contact Info) Description 02/12/2022 11:00 AM EDT [place] [address] Alfonso Rose MD [facility] [place] [address] Neuroleptic-induced parkinsonism Social History Tobacco Use Types Packs/Day [...] Taken Comments Blood Pressure - - Pulse - - Temperature - - Respiratory Rate - - Oxygen Saturation - - Inhaled Oxygen Concentration - - Weight 78.7 kg (173 lb 9.6 oz) 02/12/2022 10:47 AM EDT Height 152.4 cm (5') 02/12/2022 10:47 AM EDT Body Mass Index 33.9 02/12/2022 10:47 AM EDT documented in this encounter Patient Instructions * Patient Instructions* Alfonso Rose MD - 02/12/2022 11:00 AM EDT You were seen in consultation for tremor. Examination is consistent with parkinsonism with a rest tremor, muscular rigidity, and slowness of movement also called bradykinesia. The findings are symmetric, and suggest that this does indeed represent medication related parkinsonism. I highly suspect olanzapine is responsible for your symptoms. You have been on this for many years, and it was necessary to control the bipolar disorder, but I think we can safely reduce this medication and substitute that with higher doses of quetiapine. My suggestion is that you switch to the 2.5 mg strength olanzapine, while increasing your dose of quetiapine from 50 mg once daily to 50 mg twice daily. Dependingon how stable your symptoms of bipolar are, if you have no further signs of deanna, I think it is further safe to further reduce your olanzapine to 0, and further increase in quetiapine as needed. I will suggest this to Ana Gillespie APRN, and would like a follow-up appointment with you by telephone or by Zoom in 3 months. documented in this encounter Progress Notes * Alfonso Rose MD - 02/12/2022 11:00 AM EDT Images from the original note were not included. Department of Neurology, Movement Disorders Consultation Service New Patient Office Consultation Patient Name: Jennifer Irving Provider: Alfonso Rose MD PhD ([id number]) Vis: February 12, 2022 Requesting Physician: David Dejesus Reason for consultation: Concern about Parkisnon's Patient ID: Jennifer Irving is a 61 y.o. year old RH female with a history of tremor in the setting of the following problems: Patient Active Problem List Diagnosis Code ??? GERD (gastroesophageal reflux disease) K21.9 ??? Farrell's esophagus K22.70 ??? T2DM (type 2 diabetes mellitus) E11.9 ??? BMI 37.0-37.9, adult Z68.37 ??? Bipolar disorder F31.9 ??? Neuroleptic-induced parkinsonism G21.11 History of Present Illness Jennifer has noted the gradual onset of tremor of the upper extremities bilaterally. It happens mostly when she is distracted. She has not fallen. No shuffling of gait. No loss of sense of smell or taste. No constipation. + for BPAD, and stable on olanzapine for many years. Review of Systems Review of Systems - as above Past Medical History Past Medical History: Diagnosis Date ??? Bipolar disorder 02/12/2022 Past Surgical History Past Surgical History: Procedure Laterality Date ??? PRO COLONOSCOPY, BIOPSY N/A 03/20/2016 COLONOSCOPY FLEXIBLE, WITH BX performed by David Dejesus MD at [facility]COPY ??? PRO COLONOSCOPY, DIAGNOSTIC N/A 03/01/2020 COLONOSCOPY, DIAGNOSTIC performed by aDvid Dejesus MD at [facility] ??? PRO UPPER GI ENDOSCOPY, BIOPSY N/A 04/03/2014 UPPER GASTROINTESTINAL ENDOSCOPY,WITH BIOPSY SINGLE OR MULTIPLE performed by David [facility]jesus MDat [facility] ??? PRO UPPER GI ENDOSCOPY, BIOPSY N/A 03/20/2016 EGD WITH BIOPSY performed by David Dejesus MD at [facility] ??? PRO UPPER GI ENDOSCOPY, BIOPSY N/A 11/22/2018 EGD WITH BIOPSY (WRVU 2.49) performed by David Dejesus MD at [facility] ??? PRO UPPER GI ENDOSCOPY, BIOPSY N/A 03/01/2020 UPPER GASTROINTESTINAL ENDOSCOPY,WITH BIOPSY SINGLE OR MULTIPLE (WRVU 2.49) performed by David Dejesus MD at [facility] ??? PRO UPPER GI ENDOSCOPY, BIOPSY N/A 09/23/2021 EGD WITH BIOPSY (WRVU 2.49) performed by David Dejesus MD at [facility] ??? PRO UPPER GI ENDOSCOPY, DIAGNOSTIC N/A 04/03/2014 EGD, UPPER GI ENDOSCOPY performed by David Dejesus MD at [facility] ??? PRO UPPER GI ENDOSCOPY, DIAGNOSTIC N/A 03/01/2020 EGD, UPPER GI ENDOSCOPY performed by David Dejesus MD at [facility] Social History Social History Socioeconomic History ??? Marital status: Spouse name: None ??? Number of children: None ??? Years of education: None ??? Highest education level: None Occupational History ??? None Tobacco Use ??? Smoking status: Former Smoker Years: 11.00 Quit date: 02/26/2021 Years since quittin.9 ??? Smokeless tobacco: Never Used Substance and Sexual Activity ??? Alcohol use: Not Currently Alcohol/week: 1.0 standard drink Types: 1 Glasses of wine per week ??? Drug use: Never ??? Sexual activity: Yes Partners: Male Other Topics Concern ??? None Social History Narrative ??? None Social Determinants of Health Financial Resource Strain: Not on file Food Insecurity: Not on file Transportation Needs: Not on file Physical Activity: Not on file Housing Stability: Not on file Family History No family history on file. No family status information on file. Allergies Allergies Allergen Reactions ??? Meperidine Hcl CIS - violently ill ??? Metformin Other (See Comments) Severe diarrhea Current Medications Current Outpatient Medications Medication Sig Dispense Refill ??? pantoprazole EC (Protonix) 40 mg Tablet, Delayed Release (E.C.) Take 1 tablet by mouth 2 times daily. 180 tablet 3 ??? sucralfate (Carafate) 1 gram Tablet Take 1 tablet by mouth 4 times daily. 360 tablet 3 ??? HumuLIN N NPH Insulin KwikPen Insulin Pen Inject 20 Units subcutaneously daily. ??? QUEtiapine (SEROquel) 50 mg Tablet Take 50 mg by mouth daily. ??? divalproex (DEPAKOTE) 500 mg Tablet, Delayed Release (E.C.) Take 500 mg by mouth 2 times daily. ??? Blood Sugar Diagnostic (ONETOUCH ULTRA TEST) Strip 1 each by Other route 3 times daily. by Other route. 1 box = 100 test strips; 3 boxes = 300 test strips. 300 each 3 ??? lancets (ONE TOUCH DELICA) 33 gauge Misc 1 each by Other route 3 times daily. by Other route. 1box = 100 test strips; 3 boxes = 300 test strips. 300 each 3 ??? Blood-Glucose Meter (ONETOUCH ULTRA2) Kit by Other route. 1 = one blood glucose meter kit. 1 each 0 ??? insulin aspart (NOVOLOG FLEXPEN) Insulin Pen Inject 10-20 Units subcutaneously 3 times daily (before meals). Refer to correction factor scale for dosing. 15 mL 11 ??? Insulin Daphne, Disposable, (BD INSULIN PEN NEEDLE UF MINI) 31 x 3/16 Needle 1 Device by [facility]Non-Drug; Combo Route) route 3 times daily as needed. 100 each 11 ??? glyBURIDE (Diabeta) 5 mg Tablet Take 5 mg by mouth daily. ??? OLANZapine (ZyPREXA) 5 mg Tablet Take 5 mg by mouth daily. ??? sertraline (Zoloft) 50 mg Tablet Take 50 mg by mouth daily. ??? esomeprazole (NEXIUM) 40 mg Capsule, Delayed Release(E.C.) Take 1 capsule by mouth 2 times daily. (Patient not taking: Reported on 02/12/2022) 180 capsule 3 ??? ALPRAZolam (XANAX XR) 3 mg Tablet Sustained Release 24 hr Take 3 mg by mouth every morning. ??? insulin glargine (LANTUS) Solution Inject 62 Units subcutaneously nightly. ??? metFORMIN (GLUCOPHAGE) 1,000 mg Tablet Take 1 tablet by mouth 2 times daily (with meals). (Patient not taking: Reported on 02/12/2022) 180 tablet 3 ??? albiglutide 30 mg/0.5 mL Pen Injector Inject 30 mg subcutaneously once a week. (Patient not taking: Reported on 02/12/2022) 4 each 11 ??? lithium 300 mg Capsule Take 1,000 mg by mouth daily. ??? PARoxetine (PAXIL) 40 mg Tablet Take 20 mg by mouth every morning. No current facility-administered medications for this visit. Objective: Vitals: 02/12/22 1047 Weight: 78.7 kg (173 lb 9.6 oz) Height: 152.4 cm (5') General: healthy appearing and pleasant. Head: normocephalic. Eyes: healthy conjunctiva and sclera. No proptosis. ENT: no sinus tenderness, good dentition, no thyromegaly, no bruits Cardiovascular: Regular rate and rhythm, no murmurs, rubs or gallops. Pulmonary: Breathing comfortably. No stridor. No wheezing. Abdomen: No hepatomegaly. Dermatologic: no rash. Extremities: no edema, full range of motion. Neurological Exam ?? Mental Status: Intelligent and conversant. ?? Cranial Nerves: ?? CN I: Not tested. ?? CN II: Visual howard: intact to confrontation ?? CN III,IV,: Extraocular movements: intact. ?? CN V: Trigeminal sensation: intact. ?? CN VII: Facial motor strength: normal ?? Facial expression: normal ?? CN VIII: Hearing: intact to finger rubs bilaterally ?? CN IX/X: Palate elevation: midline ?? CN XI: Shoulder elevation: symmetric ?? CN XII: Tongue: midline without fasciculations ?? Motor: ?? Strength: No focal weakness on direct testing ?? Mass: No atrophy, no fasciculations. No hypertrophic changes ?? Tone: bilateral ue rest tremor, with rigidity and bradykinesia. ?? Sensory: ?? Vibration sense: intact ?? Temperature/pin: intact ?? Reflexes: 2+ biceps, triceps, brachioradialis, patellar, ankles. Toes downgoing bilaterally on plantar stimulation. ?? Coordination: ?? Finger to nose: intact ?? Ecuc-sgrg-ekdr: intact ?? Tandem: intact ?? Gait: ?? Armswing: normal ?? Stride: normal ?? Gait speed: intact ?? Romberg: negative Assessment and Plan: Neuroleptic-induced parkinsonism Seems most consistent with medication related parkinsonism. Recommend finding an alternative to olanzapine. Instructions given in patient instructions below. Patient Instructions You were seen in consultation for tremor. Examination is consistent with parkinsonism with a rest tremor, muscular rigidity, and slowness of movement also called bradykinesia. The findings are symmetric, and suggest that this does indeed represent medication related parkinsonism. I highly suspect olanzapine is responsible for your symptoms. You have been on this for many years, and it was necessary to control the bipolar disorder, but I think we can safely reduce this medication and substitute that with higher doses of quetiapine. My suggestion is that you switch to the 2.5 mg strength olanzapine, while increasing your dose of quetiapine from 50 mg once daily to 50 mg twice daily. Dependingon how stable your symptoms of bipolar are, if you have no further signs of deanna, I think it is further safe to further reduce your olanzapine to 0, and further increase in quetiapine as needed. I will suggest this to Ana Gillespie APRN, and would like a follow-up appointment with you by telephone or by Zoom in 3 months. No orders of the defined types were placed in this encounter. Alfonso Rose MD PhD [facility] Neurology documented in this encounter Miscellaneous Notes * Assessment & Plan Note - Alfonso Rose MD - 02/24/2022 8:20 AM EDTAssociated Problem(s): Neuroleptic-induced parkinsonism Seems most consistent with medication related parkinsonism. Recommend finding an alternative to olanzapine. Instructions given in patient instructions below. documented in this encounter Plan of Treatment Upcoming Encounters Date Type Department Care Team (Late st Contact Info) Description 12/07/2023 1:00 PM EDT Appointment [place] [address] 12/07/2023 2:00 PM EDT Office [place] [address] Geronimo Mojica MD [facility] [place] [address] 12/27/2023 11:30 AM EDT Office [place] [phone] Noe Cuenca MD [facility] [place] [address] Scheduled Procedures Name Priority Associated Diagnoses Date/Ti me EGD, UPPER GI ENDOSCOPY (WRV U 2.09) Peptic stricture of esophagus Scheduled Referrals Name Type Priority Associated Diagnoses Orde r Schedule Referral to Neurology Outpatient Referral Routine Primary Parkinsonism Ordered: 09/23/2021 documented as of this encounter Visit Diagnoses Diagnosis Neuroleptic-induced parkinsonism Secondary Parkinsonism documented in this encounter Care Teams Stem Cutter Relationship Specialty Start Date End Date Ana Gillespie APRN [address] [place] [address] PCP - General Family Medicine 02/03/19 documented as of this encounter
--- OUTSIDE RECORDS SUMMARY | 2023-12-03 14:58 | XMS_ITS | Encounter Summary ---
Author Organization [facility] Address [facility] [place] [address] Care Team Providers Care Program Specialist Name Role Phone Ana Gillespie APRN Primary Care Provider [phone] Encounter Details Date Type Department Care Team (Late st Contact Info) Description 03/31/2022 9:58 AM EST Anesthesia [place] [phone] Alfonso Duarte MD [facility] [place] [address] Sergey Hahn CRNA [facility] [place] [address] Anesthesia Record Procedure Summary Procedure Name Responsible Anesthesiologist Anesthesia Start Time Anesthesia Stop Time EGD WITH BIOPSY (WRVU 2.39) Alfonso Duarte MD 03/31/22 0958 03/31/22 1039 Events Date Time Event Comment 03/31/2022 0935 0958 AN Verify 0958 Start 0958 An Start Data 1003 An Induction 1003 An Data Art Pt moving arm; retaken NIBP 1004 Anesthesia Ready 1039 an stop data 1039 Recovery or ICU Handoff Sayra ent care was transferred to the destination unit staff after review of the patient's medical history, current anesthetic/surgical status and plan, according to the Provider Handoff Checklist. 1039 Stop Meds Name Total Propofol 80 mg Propofol INF 204.6 mg Dexmedetomidine 20 mcg ePHEDrine 25 mg PHENYLephrine 160 mcg lactated ringers infusion 800 mL * Agents Name O2 Air N2O O2 Auxiliary Flowmeter 1 * Blood No blood administrations on file. Lines, Drains, and Airways Type Details Placement Removal (RETIRED) Peripheral IV Line - Single Lumen 03/31/22; 920; median cubital vein (antecubital fossa), right; uesj-zxg-injkjg catheter system; Anatomical Landmarks; US Not Used; 22 gauge, 1 in length; distraction, tolerated well; 0; 03/31/22; 1100 03/31/22 0921 by Mckenzie Ricardo RN 03/31/22 1100 by Tegan Caballero RN documented in this encounter Social History [...] OR Notes * Anesthesia Postprocedure Evaluation - Alfonso Duarte MD - 03/31/2022 11:31 AM EST Department of Anesthesiology Post-procedure Note Patient: Jennifer Irving Procedure Summary Date: 03/31/22 Room / Location: [facility] / [facility] Anesthesia Start: 957 Anesthesia Stop: 1038 Procedures: EGD WITH BIOPSY (WRVU 2.49) UPPER EUS- ENDOSCOPIC ULTRASOUND (Trunk) Diagnosis: (Schedule EGD in two years) Surgeons: David Dejesus MD Responsible Provider: Alfonso Duarte MD Anesthesia Type: MAC ASA Status: 3 All Anesthesia Providers: Anesthesiologist: Alfonso Duarte MD MERCURY RECOVERER: Susy Juárez CRNA Vitals Value Taken Time BP 108/56 03/31/22 1050 Temp Pulse Resp 19 03/31/22 1050 SpO2 100 % 03/31/22 1100 Pain Level 0 03/31/22 1050 Patient Location: PACU/[facility] Level of Consciousness: Awake and Alert Pain Management: Satisfactory Analgesia PONV: None Cardiovascular Status: At Baseline and Hemodynamically Stable Respiratory Status: At Baseline and Room Air Postoperative Fluid Status: Intravascular EUvolemia Possible Anesthetic Complications: NONE apparent at time of evaluation Final Primary Anesthesia Type: MAC (The anesthetic type performed was the same as planned.) Comments: ALFONSO DUARTE MD * Anesthesia Preprocedure Evaluation - Alfonso Duarte MD - 03/30/2022 5:11 PM EST Pre-Anesthesia Evaluation for: Jennifer Irving a 61 y.o. female. Procedure(s): EGD, UPPER GI ENDOSCOPY Patient Active Problem List Diagnosis Date Noted [...] at [facility] Social History Tobacco Use ??? Smoking status: Former Years: 11. Types: Cigarettes Quit date: 02/26/2021 Years since [...] Physical Exam: Preprocedure Vitals Current as of 01/26/22 1446 No BP, pulse, respiration, SpO2, or temperature recorded. Height: Weight: BMI: IBW: Airway Assessment: Mallampati: II TM distance: >3 FB Neck ROM: full Cardiovascular Assessment: Rhythm: regular (-) murmur Pulmonary Assessment: pulmonary exam normal Dental Assessment: - normal exam Misc Assessment: Patient is wearing No contact(s). IV access: Peripheral line Last Filed Perioperative Cognitive Screening None Anesthesia Plan: ASA 3 MAC, with a(n) intravenous induction 61 y.o. female BMI 31 former smoker presenting for EGD PMH significant for GERD w/covington esophagus, IDDM2, anxiety/bipolar depression (olanzapine, quetiapine, alprazolam, lithium) Plan MAC Standard monitors Region - Other Informed Consent: Anesthetic plan and risks discussed with patient. Plan discussed with MERCURY RECOVERER. Pre-Anesthesia Evaluation for: Jennifer Irving a 61 y.o. female. Procedure(s): EGD, UPPER GI ENDOSCOPY Patient Active Problem List Diagnosis Date Noted [...] at [facility] Social History Tobacco Use ??? Smoking [...] Physical Exam: Preprocedure Vitals Current as of 01/26/22 1446 No BP, pulse, respiration, SpO2, or temperature recorded. Height: Weight: BMI: IBW: Anesthesia Physical Exam Last Filed Perioperative Cognitive Screening None Anesthesia Plan: ASA 3 MAC, 61 y.o. female BMI 31 former smoker presenting for EGD PMH significant for GERD w/covington esophagus, IDDM2, anxiety/bipolar depression (olanzapine, quetiapine, alprazolam, lithium) ADR: -- Meperidine Hcl -- CIS - violently ill -- Metformin -- Other (See Comments) -- Severe diarrhea Anesthesia Hx: Yearly EGD for past 5 years - MAC without issue Plan [facility] Violet Miguel MD 01/26/2022 Electric Deicer Inspector Pager #[phone] Informed Consent: Anesthesia Screening Pre-Anesthesia Evaluation for: Jennifer Irving a 61 y.o. female. Procedure(s): EGD, UPPER GI ENDOSCOPY Patient Active Problem List Diagnosis Date Noted [...] at [facility] Social History Tobacco Use ??? Smoking [...] Physical Exam: Preprocedure Vitals Current as of 09/23/21 1144 BP: 140/73 Pulse: 72 Resp: 16 SpO2: 97 Temp: 36.2 ??C (97.2 ??F) Height: 157.5 cm (5' 2) (09/23/21) Weight: 78.5 kg (173 lb) (09/23/21) BMI: 31.64 IBW: 50.1 kg (110 lb 7.8 oz) Last edited 09/23/21 1119 by EP Airway Assessment: Mallampati: II TM distance: >3 FB Neck ROM: full Cardiovascular Assessment: system normal Pulmonary Assessment: pulmonary exam normal Dental Assessment: - normal exam Misc Assessment: Patient is wearing Yes contact(s). IV access: Peripheral line Last Filed Perioperative Cognitive Screening None Anesthesia Plan: ASA 3 MAC, with a(n) intravenous induction MAC, with a(n) intravenous induction 61 year old female for EGD NPO IDDM Covington's GERD Smoker No problems with previous anesthesia Region - Other Plan propofol sedation Region - Other Informed Consent: Anesthetic plan and risks discussed with patient. Plan discussed with MERCURY RECOVERER. Anesthesia Screening Anesthesia Screening documented in this encounter Plan of Treatment Upcoming Encounters Date Type Department Care Team (Late st Contact Info) Description 12/07/2023 1:00 PM EDT Appointment [place] [phone] 12/07/2023 2:00 PM EDT Office [place] [phone] Geronimo Mojica MD [facility] [place] [address] 12/27/2023 11:30 AM EDT Office [place] [phone] Noe Cuenca MD [facility] [place] [address] Scheduled Procedures Name Priority Associated Diagnoses Date/Ti me EGD, UPPER GI ENDOSCOPY (WRV U 2.09) Peptic stricture of esophagus documented as of this encounter Visit Diagnoses Not on filedocumented in this encounter Administered Medications Inactive Administered Medications - up to 3 most recent administrations Medication Order MAR Action Action Date Dose Rate Site dexmedeTOMIDine (Precedex) (4 mcg/mL) bolus injection (Anesthsia) Intravenous, PRN, Starting on Wed03/31/22 at 0959, Until Wed03/31/22 at 1039, Anesthesia Intra-op, Routine Given 03/31/2022 10:02 AM EST 8 mcg Given 03/31/2022 10:01 AM EST 4 mcg Given 03/31/2022 10:00 AM EST 4 mcg ePHEDrine sulfate (5 mg/mL) multi-dose injection Intravenous, PRN, Starting on Wed03/31/22 at 1017, Until Wed03/31/22 at 1039, Anesthesia Intra-op, Routine Given 03/31/2022 10:22 AM EST 5 mg Given 03/31/2022 10:20 AM EST 10 mg Given 03/31/2022 10:17 AM EST 10 mg lactated ringers infusion 100 mL/hr, Intravenous, CONTINUOUS, Starting on Wed03/31/22 at 0930, Until Wed03/31/22 at 1310, Endoscopy (Day of Procedure) Restarted 03/31/2022 9:59 AM EST New Bag 03/31/2022 9:30 AM EST 100 mL/hr 100 mL/hr PHENYLephrine in NS (PF) (ROBY-SYNEPHRINE) 0.8 mg/10 mL (80 mcg/mL) multi-dose injection Syrg Intravenous, PRN, Starting on Wed03/31/22 at 1020, Until Wed03/31/22 at 1039, Anesthesia Intra-op, Routine Given 03/31/2022 10:23 AM EST 80 mcg Given 03/31/2022 10:20 AM EST 80 mcg propofoL (Diprivan) (10 mg/mL) infusion Intravenous, CONTINUOUS PRN, Starting on Wed03/31/22 at 1003, Until Wed03/31/22 at 1039, Anesthesia Intra-op, Routine Rate/Dose Change 03/31/2022 10:20 AM EST 50 mcg/kg/min 22.32 mL/hr Rate/Dose Change 03/31/2022 10:08 AM EST 100 mcg/kg/min 44 .64 mL/hr New Bag 03/31/2022 10:03 AM EST 200 mcg/kg/min 89.28 mL /hr propofoL (Diprivan) 10 mg/mL bolus injection (Anesthesia) Intravenous, PRN, Starting on Wed03/31/22 at 1003, Until Wed03/31/22 at 1039, Anesthesia Intra-op Given 03/31/2022 10:04 AM EST 30 mg Given 03/31/2022 10:03 AM EST 50 mg documented in this encounter Care Teams Program Specialist Relationship Specialty Start Date End Date Ana Gillespie APRN [address] [place] [address] PCP - General Family Medicine 02/03/19 documented as of this encounter
--- OUTSIDE RECORDS SUMMARY | 2023-12-03 14:58 | XMS_ITS | Encounter Summary ---
Author Organization [facility] [place] [address] Care Team Providers Care Aviation Project Engineer Name Role Phone Ana Gillespie APRN Primary Care Provider [phone] Encounter Details Date Type Department Care Team (Late st Contact Info) Description 07/03/2022 8:40 AM EST Anesthesia [place] [phone] Shanell Taylor MD [facility] [place] [address] Halima Jeong CRNA [facility] [place] [address] Anesthesia Record Procedure Summary Procedure Name Responsible Anesthesiologist Anesthesia Start Time Anesthesia Stop Time EGD WITH BIOPSY (WRVU 2.39) (Trunk) Shanell Taylor MD 07/03/22 0840 07/03/22 0901 Events Date Time Event Comment 07/03/2022 0825 0839 AN Verify 0840 Start 0840 An Start Data 0842 An Induction 0843 Anesthesia Ready 0901 an stop data 0901 Recovery or ICU Handoff Sayra ent care was transferred to the destination unit staff after review of the patient's medical history, current anesthetic/surgical status and plan, according to the Provider Handoff Checklist. 0901 Stop Meds Name Total Propofol 100 mg Propofol INF 199.22 mg lactated ringers infusion 0 mL * Agents Name O2 Air N2O O2 Auxiliary Flowmeter 1 * Blood No blood administrations on file. Lines, Drains, and Airways Type Details Placement Removal (RETIRED) Peripheral IV Line - Single Lumen 07/03/22; 0741; metacarpal vein (top of hand), right; 22 gauge; putorti; no longer indicated; 07/03/22; 0940 07/03/22 0741 by Gaby Doan RN 07/03/22 0940 by Venita Elaine RN documented in this encounter Social History [...] OR Notes * Anesthesia Postprocedure Evaluation - Shanell Taylor MD - 07/03/2022 9:20 AM EST Department of Anesthesiology Post-procedure Note Patient: Jennifer Irving Procedure Summary Date: 07/03/22 Room / Location: [facility]O 2 / [facility] Anesthesia Start: 839 Anesthesia Stop: 900 Procedure: EGD WITH BIOPSY (WRVU 2.49) (Trunk) Diagnosis: Farrell's esophagus without dysplasia (dysphagia) Surgeons: David Dejesus MD Responsible Provider: Shanell Taylor MD Anesthesia Type: other ASA Status: 3 All Anesthesia Providers: Anesthesiologist: Shanell Taylor MD BOARDER HAND: Jamar Spaulding CRNA Vitals Value Taken Time BP 110/53 07/03/22 0910 Temp Pulse Resp SpO2 92 % 07/03/22 0919 Pain Level 0 07/03/22 0910 Vitals shown include unvalidated device data. Patient Location: PACU/[facility] Level of Consciousness: Conscious but Sleepy Pain Management: Satisfactory Analgesia PONV: None Cardiovascular Status: At Baseline Respiratory Status: Supplemental O2 (NC or FM) Postoperative Fluid Status: Intravascular EUvolemia Possible Anesthetic Complications: NONE apparent at time of evaluation Final Primary Anesthesia Type: MAC (The anesthetic type performed was the same as planned.) Comments: * Anesthesia Preprocedure Evaluation - Shanell Taylor MD - 07/02/2022 6:54 PM EST Pre-Anesthesia Evaluation for: Jennifer Irving [...] BX performed by David Dejesus MD at [facility] ??? PRO COLONOSCOPY, DIAGNOSTIC N/A 03/01/2020 COLONOSCOPY, DIAGNOSTIC performed by David Dejesus MD at [facility] ??? PRO ENDOSCOPIC US EXAM, ESOPH N/A 03/31/2022 UPPER EUS- ENDOSCOPIC ULTRASOUND performed by David Dejesus MD at [facility] ??? PRO UPPER GI ENDOSCOPY, BIOPSY N/A 04/03/2014 UPPER GASTROINTESTINAL ENDOSCOPY,WITH BIOPSY SINGLE OR MULTIPLE performed by David Dejesus MDat [facility] ??? PRO UPPER GI ENDOSCOPY, BIOPSY N/A 03/20/2016 EGD WITH BIOPSY performed by David Dejesus MD at [facility] ??? PRO UPPER GI ENDOSCOPY, BIOPSY N/A 11/22/2018 EGD WITH BIOPSY (WRVU 2.49) performed by David Dejesus MD at [facility] ??? PRO UPPER GI ENDOSCOPY, BIOPSY N/A 03/01/2020 UPPER GASTROINTESTINAL ENDOSCOPY,WITH BIOPSY SINGLE OR MULTIPLE (WRVU 2.49) performed by David Dejesus MD at [facility] ??? PRO UPPER GI ENDOSCOPY, BIOPSY N/A 09/23/2021 EGD WITH BIOPSY (WRVU 2.49) performed by David Dejesus MD at [facility] ??? PRO UPPER GI ENDOSCOPY, BIOPSY N/A 03/31/2022 EGD WITH BIOPSY (WRVU 2.49) performed by David Dejesus MD at [facility] ??? PRO UPPER GI ENDOSCOPY, DIAGNOSTIC N/A 04/03/2014 EGD, UPPER GI ENDOSCOPY performed by David Dejesus MD at [facility] ??? PRO UPPER GI ENDOSCOPY, DIAGNOSTIC N/A 03/01/2020 EGD, UPPER GI ENDOSCOPY performed by David Dejesus MD at [facility] Social History Tobacco Use ??? Smoking status: Former Years: 11.00 Types: Cigarettes Quit date: 02/26/2021 Years since quittin.3 ??? Smokeless tobacco: Never Substance Use Topics [...] Physical Exam: Preprocedure Vitals Current as of 07/02/22 1854 No BP, pulse, respiration, SpO2, or temperature recorded. Height: Weight: BMI: IBW: Airway Assessment: Mallampati: (Unable to Assess) TM distance: >3 FB Cardiovascular Assessment: system normal Pulmonary Assessment: unlabored breathing Dental Assessment: Misc Assessment: IV access: Peripheral line Last Filed Perioperative Cognitive Screening None I personally evaluated, examined, and interviewed this patient, and reviewed relevant information in the electronic medical record. 62 year old female with GERD/Barretts esophagus who presents for EGD. Her medical history is otherwise ntoable for T2DM, obesity, bipolar disorder. Functional status: > 4 METs NPO: Appropriate Personal or family history of anesthetic complications: None/denies Recent illness or injury: None/denies Prior anesthetic information: Multiple prior EGD with out complication. Relevant imaging, history, labs reviewed. Anesthesia Plan: ASA 3 other, with a(n) intravenous induction Region - Other Informed Consent: Anesthetic plan and risks discussed with patient and spouse. Plan discussed with BOARDER HAND and attending. Anesthesia Screening Code Status: Full code I discussed the risks of general anesthesia as detailed by the preoperative anesthesia consent withthis patient. The patient demonstrated adequate understanding and acknowledged these risks and wishes to proceed with scheduled surgery. All questions related to anesthetic care were welcomed and answered to satisfaction. Shanell Taylor MD MS Anesthesiologist, [facility] Pager [phone] documented in this encounter Plan of Treatment Upcoming Encounters Date Type Department Care Team (Late st Contact Info) Description 12/07/2023 1:00 PM EDT Appointment [place] [address] 12/07/2023 2:00 PM EDT Office Visit [place] [phone] Geronimo Mojica MD [facility] [place] [address] 12/27/2023 11:30 AM EDT Office [place] [phone] Noe Cuenca MD [facility] [place] [address] Scheduled Procedures Name Priority Associated Diagnoses Date/Ti me EGD, UPPER GI ENDOSCOPY (WRV U 2.09) Peptic stricture of esophagus documented as of this encounter Visit Diagnoses Not on filedocumented in this encounter Administered Medications Inactive Administered Medications - up to 3 most recent administrations Medication Order MAR Action Action Date Dose Rate Site lactated ringers infusion 100 mL/hr, Intravenous, CONTINUOUS, Starting on Wed07/03/22 at 0745, Until Wed07/03/22 at 0946, Endoscopy (Day of Procedure) New Bag 07/03/2022 8:42 AM EST New Bag 07/03/2022 7:42 AM EST 100 mL/hr 100 mL/hr propofoL (Diprivan) (10 mg/mL) infusion Intravenous, CONTINUOUS PRN, Starting on Wed07/03/22 at 0842, Until Wed07/03/22 at 0901, Anesthesia Intra-op, Routine New Bag 07/03/2022 8:42 AM EST 150 mcg/kg/min 62.91 mL/hr propofoL (Diprivan) 10 mg/mL bolus injection (Anesthesia) Intravenous, PRN, Starting on Wed07/03/22 at 0842, Until Wed07/03/22 at 0901, Anesthesia Intra-op Given 07/03/2022 8:47 AM EST 50 mg Given 07/03/2022 8:42 AM EST 50 mg documented in this encounter Care Teams Aviation Project Engineer Relationship Specialty Start Date End Date Ana Gillespie APRN [address] [place] [address] PCP - General Family Medicine 02/03/19 documented as of this encounter
--- OUTSIDE RECORDS SUMMARY | 2023-12-03 14:58 | XMS_ITS | Encounter Summary ---
Author Organization [facility] Address [facility] [place] [address] Care Team Providers Care Customer Experience Retail Clerk Name Role Phone Ana Gillespie VAUGHN Primary Care Provider [phone] Encounter Details Date Type Department Care Team (Late st Contact Info) Description 06/23/2022 Telephone [place] [address] Jessica Beckman Social History Tobacco [...] * Telephone Encounter - Jessica Beckman - 06/23/2022 9:01 AM EST Pt's , Campos, called in to resched pt egd w/Dr Dejesus rojelio. Resched pt for 08/04 first avail. documented in this encounter Plan of Treatment Upcoming Encounters Date Type Department Care Team (Late st Contact Info) Description 12/07/2023 1:00 PM EDT Appointment [place] [address] 12/07/2023 2:00 PM EDT Office [place] [phone] Geronimo Mojica MD [facility] [place] [address] 12/27/2023 11:30 AM EDT Office [place] [phone] Noe Cuenca MD [facility] [place] [address] Scheduled Procedures Name Priority Associated Diagnoses Date/Ti me EGD, UPPER GI ENDOSCOPY (WRV U 2.09) Peptic stricture of esophagus documented as of this encounter Visit Diagnoses Not on filedocumented in this encounter Care Teams Customer Experience Retail Clerk Relationship Specialty Start Date End Date Ana Gillespie APRN [address] [place] [address] PCP - General Family Medicine 02/03/19 documented as of this encounter
--- OUTSIDE RECORDS SUMMARY | 2023-12-03 14:58 | XMS_ITS | Encounter Summary ---
Author Organization Formerly [facility], [facility]–1983 Address [facility] [place] [address] Care Team Providers Care Human Factors Scientist Name Role Phone Ana Gillespie APRN Primary Care Provider [phone] Encounter Details Date Type Department Care Team (Late st Contact Info) Description 08/08/2022 12:10 AM EDT Ancillary Procedure [place] [phone] Social History Tobacco Use Types Packs/Day Years [...] 1:00 PM EDT Appointment [place] [phone] 12/07/2023 2:00 PM EDT Office Visit [place] [address] Geronimo Mojica MD [facility] [place] [address] 12/27/2023 11:30 AM EDT Office [place] [phone] Noe Cuenca MD [facility] [place] [address] Scheduled Procedures Name Priority Associated Diagnoses Date/Ti me EGD, UPPER GI ENDOSCOPY (WRV U 2.09) Peptic stricture of esophagus documented as of this encounter Procedures Procedure Name Priority Date/Time Associated Diagnosis Comments FILM LIBRARY STORAGE ONLY DX PELVIS Routine 08/08/2022 12:10 AM EDT documented in this encounter Results * Film Library- Storage Only DX Pelvis (08/08/2022 12:10 AM EDT) Narrative Dicom, Auditing User - 08/15/2022 8:37 AM EDT This exam is auto-finalizing. It's purpose is for storage only. Ayo Serna MD IMG FILM LIBRARY ORD ERABLES documented in this encounter Visit Diagnoses Not on filedocumented in this encounter Care Teams Human Factors Scientist Relationship Specialty Start Date End Date Ana Gillespie APRN [address] [place] [address] PCP - General Family Medicine 02/03/19 documented as of this encounter
--- OUTSIDE RECORDS SUMMARY | 2023-12-03 14:58 | XMS_ITS | Encounter Summary ---
Author Organization [facility] [place] [address] Care Team Providers Care Infection Control Rn Name Role Phone Ana Gillespie VAUGHN Primary Care Provider [phone] Reason for Visit * Auth/Cert (Routine) Specialty Diagnoses / Procedures Referred By Esperanza rodríguez Referred To Contact Diagnoses Shock CARDIOGENIC PULMONARY EDEMA Procedures ER Carlos Melton MD [facility] [place] [address] [facility] Referral ID Status Reason Start Date Expiration Date Visits Re quested Visits Authorized [id number] 1 1 Encounter Details Date Type Department Care Team (Latest Contact Info) Description 08/15/2022 9:15 AM EDT - 08/15/2022 11:59 PM EDT Hospital Encounter Non-[place] [address] Discharge Disposition: Home Social History Tobacco Use [...] meter kit. 1 each 0 12/14/2014 Insulin Vendor, Disposable, (BD INSULIN PEN NEEDLE UF MINI) 31 x 07/23 NeedleIndications:Di abetes mellitus type 2, uncontrolled 1 Device by [facility] And [...] daily. 60 tablet 3 09/24/2022 07/12/2023 spironolactone (CaroSpir) 25 mg/5 mL Suspension 2.5 mLs by Per G Tube route daily. 225 mL 3 09/24/2022 09/25/2022 spironolactone (Aldactone) 25 mg tablet Take 0.5 tablets by mouth daily. 45 tablet 3 09/24/2022 02/25/2023 divalproex ER (Depakote ER) 500 mg ER 24 hr tablet Take 1,000 mg by mouth daily. Take two tablets every afternoon 09/25/2022 divalproex ER (Depakote ER) 250 mg ER 24 hr tablet Take 250 mg by mouth nightly. 09/25/2022 sucralfate (Carafate) 1 gram Tablet Take 1 tablet by mouth 4 times daily. 360 tablet 3 08/04/2021 10/22/2022 HumuLIN N NPH Insulin KwikPen Insulin Pen Inject 20 Units subcutaneously daily. 11/12/2019 09/25/2022 QUEtiapine (SEROquel) 50 mg Tablet Take 50 mg by mouth daily. 02/10/2020 04/30/2023 insulin aspart (NOVOLOG FLEXPEN) Insulin PenIndications:Diabe riky mellitus type 2, uncontrolled Inject 10-20 Units subcutaneously 3 times daily (before meals). Refer to correction factor scale for dosing. 15 mL 11 12/13/2014 09/25/2022 documented as of this encounter Plan of Treatment Upcoming Encounters Date Type Department Care Team (Late st Contact Info) Description 12/07/2023 1:00 PM EDT Appointment [place] [phone] 12/07/2023 2:00 PM EDT Office [place] [address] Geronimo Mojica MD [facility] [place] [address] 12/27/2023 11:30 AM EDT Office [place] [phone] Noe Cuenca MD [facility] [place] [address] Scheduled Procedures Name Priority Associated Diagnoses Date/Ti me EGD, UPPER GI ENDOSCOPY (WRV U 2.09) Peptic stricture of esophagus documented as of this encounter Procedures Procedure Name Priority Date/Time Associated Diagnosis Comments ECHO COMPLETE Routine 08/15/2022 10:04 AM EDT Shock documented in this encounter Results * ECHO COMPLETE (08/15/2022 10:04 AM EDT) Anatomical Region Laterality Modality Cardiac Other 08/15/2022 9:38 AM EDT Narrative 08/15/2022 10:34 AM EDT ? Echocardiogram Report Name: ISHAN IRVING ? Study Date: 08/15/2022 09:38 AMBP: 102/54 mmHg ? Patient Location: 4A 0000 ? HR: 99 : 1960 ? Height: 152 cm ? Account: [id number] Age: 62 yrs ? Weight: 69 kg Gender: Female ?BSA: 1.7 m2 Ordering Physician: VENKAT^M Referring Physician: NIURKA AYALA Performed By: Raissa Bhakta RDCS Reason For Study: Septic shock Exam Location: [facility]. Interpretation Summary -Left ventricle is mildly dilated. Left ventricular systolic function is moderately reduced. The left ventricular ejection fraction is 37% by Dahl's biplane. The apex is densely akinetic. Contractile function of the basal segments is hyperdynamic. -The right ventricle is of normal size. Global right ventricular systolic function is mildly decreased. The right ventricular apex is akinetic. RVSP is normal. -There is no significant valve disease. -See report for additional findings. Compared to a study preformed earlier on today's date, LVEF is slightly improved. Procedure Complete-19899. Satisfactory quality. There is normal sinus rhythm. Left Ventricle Left ventricle is mildly dilated. There is no ventricular septal defect. Wall thickness is normal. Left ventricular systolic function is moderately reduced. The left ventricular ejection fraction is 37% by Dahl's biplane. There are segmental wall motion abnormalities. There is akinesis of the apical region. Right Ventricle The right ventricle is of normal size. Right ventricular systolic function is mildly decreased. The right ventricular apex is akinetic. Left Atrium The left atrium is normal. There is no evidence for a patent foramen ovale. Right Atrium The right atrium is normal. Aortic Valve The aortic valve is structurally normal. There is no aortic stenosis. There is no aortic regurgitation. Mitral Valve The mitral valve is structurally and functionally normal. There is trace mitral regurgitation. Tricuspid Valve The tricuspid valve is structurally normal. There is mild tricuspid regurgitation. Pulmonic Valve The pulmonic valve appears to be structurally and functionally normal. Great Arteries The aortic root is of normal size. No abnormalities are identified. Venous Inferior vena cava is dilated. Inferior vena cava collapse less than 50% with respiration. Pericardium/Pleural The pericardium appears normal. Hemodynamics The peak right ventricular systolic pressure is 21 mmHg. Plus RA presssure. There is Grade I LV diastolic dysfunction (abnormal relaxation with normal left ventricular filling pressure). Ejection Fraction ?2D Measurements ? Volumes EF(MOD-bp): 37.0 % ?IVSd: 0.79 cm ?LAV(MOD- bp) Indexed: ?LVIDd: 4.2 cm ?LVIDs: 3.3 cm ?29.5 ml/m2 ?LVPWd: 0.95 cm ? RA A4Cs_phl: 8.3 cm2 ? EDV (MOD-bp) Index: 64.4 ?LV mass(C)d: 114.1 grams ? ESV (MOD-bp) Index: 40.6 ?LV mass(C)dI: 68.8 grams/m2 ?SV(LVOT): 28.3 ml ?Ao root diam: 2.7 cm ? LV Stroke Volume: 28.3 ml ?Ao root diam index: 1.6 ?asc Aorta Diam: 2.4 cm ? SI(LVOT): 17.1 ml/m2 ?LVOT diam: 1.9 cm Doppler TR max jacky: 229.3 cm/sec LV V1 VTI: 9.6 cm LVOT max Velocity: 75.7 cm/sec MV E max jacky: 50.5 cm/sec MV A max jacky: 90.0 cm/sec MV E/A: 0.56 MV dec time: 0.10 sec Lat Peak E' Jacky: 5.4 cm/sec E/ e' (lat): 9.3 Med Peak E' Jacky: 4.8 cm/sec E/e' (med): 10.6 E/e' Average: 10.0 I ?WMSI = 1.94 ? % Normal = 31 ?Segments ??Size X - Cannot ?2 - ?4 - ?1-2 ? small Interpret ?1 - Normal ?? Hypokinetic 3 - Akinetic Dyskinetic ?? 3-5 ? moderate 5 - ? 6-14 ?large Aneurysmal ?15-16 ?? diffuse Procedure Note Carlos Terry MD - 08/15/2022 Echocardiogram Report Name: ISHAN IRVING Study Date: 309:38 AMBP: 102/54 mmHg Patient Location: [id number] HR: 99 : 1960 Height: 152 cm Account: [id number] Age: 62 yrs Weight: 69 kg Gender: Female BSA: 1.7 m2 Ordering Physician: FANY Referring Physician: NIURKA AYALA Performed By: Raissa Bhakta RDCS Reason For Study: Septic shock Exam Location: [facility]. Interpretation Summary -Left ventricle is mildly dilated. Left ventricular systolic function is moderately reduced. The left ventricular ejection fraction is 37% bySimpson's biplane. The apex is densely akinetic. Contractile function of the basalsegments is hyperdynamic. -The right ventricle is of normal size. Global right ventricular systolicfunction is mildly decreased. The right ventricular apex is akinetic. RVSP isnormal. -There is no significant valve disease. -See report for additional findings. Compared to a study preformed earlieron today's date, LVEF is slightly improved. Procedure Complete-[id number]. Satisfactory quality. There is normal sinus rhythm. Left Ventricle Left ventricle is mildly dilated. There is no ventricular septal defect.Wall thickness is normal. Left ventricular systolic function is moderatelyreduced. The left ventricular ejection fraction is 37% by Dahl's biplane. Thereare segmental wall motion abnormalities. There is akinesis of the apicalregion. Right Ventricle The right ventricle is of normal size. Right ventricular systolic functionis mildly decreased. The right ventricular apex is akinetic. Left Atrium The left atrium is normal. There is no evidence for a patent foramenovale. Right Atrium The right atrium is normal. Aortic Valve The aortic valve is structurally normal. There is no aortic stenosis.There is no aortic regurgitation. Mitral Valve The mitral valve is structurally and functionally normal. There is tracemitral regurgitation. Tricuspid Valve The tricuspid valve is structurally normal. There is mild tricuspidregurgitation. Pulmonic Valve The pulmonic valve appears to be structurally and functionally normal. Great Arteries The aortic root is of normal size. No abnormalities are identified. Venous Inferior vena cava is dilated. Inferior vena cava collapse less than 50%with respiration. Pericardium/Pleural The pericardium appears normal. Hemodynamics The peak right ventricular systolic pressure is 21 mmHg. Plus RApresssure. There is Grade I LV diastolic dysfunction (abnormal relaxation with normalleft ventricular filling pressure). Ejection Fraction 2D Measurements Volumes EF(MOD-bp): 37.0 % IVSd: 0.79 cm LAV(MOD-bp)Indexed: LVIDd: 4.2 cm LVIDs: 3.3 cm 29.5 ml/m2 LVPWd: 0.95 cm RA A4Cs_phl: 8.3cm2 EDV (MOD-bp)Index: 64.4 LV mass(C)d: 114.1 grams ESV (MOD-bp)Index: 40.6 LV mass(C)dI: 68.8 grams/m2 SV(LVOT): 28.3ml Ao root diam: 2.7 cm LV Stroke Volume:28.3 ml Ao root diam index: 1.6 asc Aorta Diam: 2.4 cm SI(LVOT): 17.1ml/m2 LVOT diam: 1.9 cm Doppler TR max jacky: 229.3 cm/sec LV V1 VTI: 9.6 cm LVOT max Velocity: 75.7 cm/sec MV E max jacky: 50.5 cm/sec MV A max jacky: 90.0 cm/sec MV E/A: 0.56 MV dec time: 0.10 sec Lat Peak E' Jacky: 5.4 cm/sec E/ e' (lat): 9.3 Med Peak E' Jacky: 4.8 cm/sec E/e' (med): 10.6 E/e' Average: 10.0 I WMSI = 1.94 % Normal = 31 SegmentsSize X - Cannot 2 - 4 - 1-2small Interpret 1 - Normal Hypokinetic 3 - Akinetic Dyskinetic 3-5moderate 5 - 6-14large Aneurysmal 15-16diffuse Carlos Terry MD ECHO ORDERABLES documented in this encounter Visit Diagnoses Not on filedocumented in this encounter Additional Health Concerns Infection Onset Date Last Indicated Resolved Time Rule Out COVID-19 08/15/2022 08/15/2022 08/15/2022 11:30 AM EDT Rule Out COVID-19 08/15/2022 08/15/2022 08/15/2022 3:01 PM EDT documented as of this encounter Care Teams Infection Control Rn Relationship Specialty Start Date End Date Ana Gillespie APRN [address] [place] [address] PCP - General Family Medicine 02/03/19 documented as of this encounter
--- OUTSIDE RECORDS SUMMARY | 2023-12-03 14:58 | XMS_ITS | Encounter Summary ---
Author Organization Formerly [facility] Address [facility] [place] [address] Care Team Providers Care Photoresist Printer Name Role Phone Ana Gillespie VAUGHN Primary Care Provider [phone] Encounter Details Date Type Department Care Team (Late st Contact Info) Description 07/03/2022 8:30 AM EST - 07/03/2022 9:00 AM EST Surgery Gastroenterology at [facility] [place] [address] David Dejesus MD [facility] [place] [address] EGD WITH BIOPSY (WRVU 2.39) Social History Tobacco Use Types Packs/Day Years [...] Sign Reading Time Taken Comments Blood Pressure 125/65 07/03/2022 7:26 AM EST Pulse 102 07/03/2022 7:26 AM EST Temperature 35.8 ??C (96.4 ??F) 07/03/2022 7:26 AM ES T Respiratory Rate 16 07/03/2022 7:26 AM EST Oxygen Saturation 100% 07/03/2022 7:26 AM EST Inhaled Oxygen Concentration - - Weight 69.9 kg (154 lb) 07/03/2022 7:26 AM EST Height 152.4 cm (5') 07/03/2022 7:26 AM EST Body Mass Index 30.08 07/03/2022 7:26 AM EST documented in this encounter Discharge Instructions * Attachments The following attachments cannot be sent through Care Everywhere. * EGD (Upper Endoscopy): Post-op (Samoan) documented in this encounter Medications at Time of Discharge Medication Sig Dispensed Refills Start Date End Date pantoprazole EC (Protonix) 40 mg Tablet, Delayed [...] meter kit. 1 each 0 12/14/2014 Insulin [place], Disposable, (BD INSULIN PEN NEEDLE UF MINI) 31 x 07/23 NeedleIndications:Di abetes mellitus type 2, uncontrolled 1 Device by [facility].(Non-Drug; Combo Route) route 3 times daily as needed. 100 each 11 12/13/2014 sucralfate (Carafate) 1 gram Tablet Take 1 [...] 12/13/2014 09/25/2022 documented as of this encounter H&P Notes * David Dejesus MD - 07/03/2022 8:34 AM EST PROBLEM LIST Patient Active Problem List Diagnosis Code ??? GERD (gastroesophageal reflux disease) K21.9 ??? Farrell's esophagus K22.70 ??? T2DM (type 2 diabetes mellitus) E11.9 ??? BMI 37.0-37.9, adult Z68.37 ??? Bipolar disorder F31.9 ??? Neuroleptic-induced parkinsonism G21.11 HISTORY OF PRESENT ILLNESS Jennifer Irving is a 62 y.o. y/o who presents for EGD for follow-up esophageal ulcer and stricture. MEDICATIONS No current facility-administered medications on file prior to encounter. Current Outpatient Medications on File Prior to Encounter Medication Sig Dispense Refill ??? pantoprazole EC [...] for dosing. 15 mL 11 ??? Insulin [place], Disposable, (BD INSULIN PEN NEEDLE UF MINI) 31 x 3/16 Needle 1 Device by [facility].(Non-Drug; Combo Route) route 3 times daily as needed. 100 each 11 PHYSICAL EXAM: Blood pressure 125/65, pulse (!) 102, temperature 35.8 ??C (96.4 ??F), resp. rate 16, height 152.4 cm (5'), weight 69.9 kg (154 lb), SpO2 100 %. GEN: Alert, cooperative. Pleasant. In NAD MP I ASA II HEENT: No oropharyngeal lesions. Neck supple. No masses. Thyroid symmetric LUNGS: CTAB CARD: RRR without m/g/r RECENT LABS Recent Results (from the past 24 hour(s)) POCT Glucose Result Value Ref Range POC Glucose 139 65 - 199 mg/dL ASSESSMENT AND PLAN Jennifer Irving is a 62 y.o. y/o who presents for endoscopic evaluation. Risks extensively discussed including bleeding, infection, reaction to anesthesia, perforation, missing a cancer and/or other unforseen complication. Consent signed and patient well informed of the risks of the procedure. documented in this encounter Plan of Treatment Upcoming Encounters Date Type Department Care Team (Late st Contact Info) Description 12/07/2023 1:00 PM EDT Appointment [place] [phone] 12/07/2023 2:00 PM EDT Office Visit [place] [phone] Geronimo Mojica MD [facility] [place] [address] 12/27/2023 11:30 AM EDT Office Visit [place] [phone] Noe Cuenca MD [facility] [place] [address] Scheduled Procedures Name Priority Associated Diagnoses Date/Ti me EGD, UPPER GI ENDOSCOPY (WRV U 2.09) Peptic stricture of esophagus documented as of this encounter Procedures Procedure Name Priority Date/Time Associated Diagnosis Comments SURGICAL PATHOLOGY REPORT Routine 07/03/2022 9:02 AM EST SPECIMEN TO PATHOLOGY Routine 07/03/2022 9:02 AM EST SPECIMEN TO PATHOLOGY Routine 07/03/2022 9:02 AM EST Upper Gi Endoscopy, Biopsy ([id number]) 07/03/2022 8:39 AM EST Farrell's esophagus without dysplasia POCT GLUCOSE Routine 07/03/2022 7:37 AM EST UPPER GI ENDOSCOPY Routine 07/03/2022 7: 26 AM EST documented in this encounter Results * Surgical Pathology Report (07/03/2022 9:02 AM EST) FINAL DIAGNOSIS (AP) [id number] ? Location: ; [facility]; A The signing pathologist has (i) examined the relevant preparation(s) for the specimen(s) and (ii) rendered or confirmed the diagnosis(es). . ?Surgical Pathology DIAGNOSIS A - Nodule at 30 cm biopsies, biopsy (Multiple): - ??Farrell's esophagus, negative for dysplasia with ?? villous transformation of the cardia-type mucosa. B - Nodule at 25 cm biopsies, biopsy (Multiple): - ??Farrell's esophagus, negative for dysplasia with ?? villous transformation of the cardia-type mucosa (see Note). Note: Immunostains for p53, CD31 and [id number] were evaluated for final diagnosis. Electronically signed by: ?Chinmay Nguyen MD Verified: ??07/08/2022 16:29 ??Pathologist Performed at: ??-[facility] Dept. of Pathology, [place] [address] Equity Manager: Vishal Gilliam MD, FCAP, ??CLIA Certificate: [id number] ADDITIONAL STUDIES Immunohistochemistry Studies: Formalin-fixed, paraffin-embedded tissue sections are studied using the polymer technique with appropriate positive and negative controls. ?These IHC studies provide the pathologist with adjunctive diagnostic information. Antibody specificity has been verified by testing antibodies on a series of in-house tissues with known immunohistochemical performance characteristics. The clinical interpretation of any antibody positive staining or its absence is evaluated within the context of clinical presentation, morphology, histopathological criteria and other diagnostic tests. Block ? Antibody ?Result (Positive/Negative) B1 ? P53 ?see note ? CD31 ? see note ? [id number] ? see note SPECIMEN(S) SUBMITTED A - nodule at 30 cm biopsies, biopsy (Multiple) B - nodule at 25 cm biopsies, biopsy (Multiple) CLINICAL INFORMATION 62 year-old female, history of Farrell's esophagus SPECIMEN PROCESSING A - Labeled/Fixative: Nodule at 30 cm biopsies, formalin. Quantity/Size: Fragments, 0.1-0.2 cm. Tissue Description: Soft, kirby-pink tissues. Sections/Processin-72 hours fixation ensured. Submitted en toto ??in 1 cassette labeled A1. B - Labeled/Fixative: Nodule at 25 cm biopsies, formalin. Quantity/Size: Fragments, 30.1-0.2 cm. Tissue Description: Soft, kirby-pink tissues. Sections/Processin-72 hours fixation ensured. Submitted en toto ??in 1 cassette labeled B1. . SPECIMEN PROCESSING ??pps 07/08/2022 4:29 PM EST [facility] 07/03/2022 9:02 AM EST David Dejesus MD PATHOLOGY/CYTOLOGY ORDERABLES [facility] [place] [address] * Specimen to Pathology (07/03/2022 9:02 AM EST) AP Specimen 07/03/2022 9:02 AM EST 07/03/2022 9:02 AM EST Narrative [facility] - 07/03/2022 9:02 AM EST Specimen requisition ordered. ??Separate Pathology report to follow David Dejesus MD PATHOLOGY/CYTOLOGY ORDERABLES Performing Organization Address [facility] Co de Phone Number [facility] [place] [address] * Specimen to Pathology (07/03/2022 9:02 AM EST) AP Specimen 07/03/2022 9:02 AM EST 07/03/2022 9:02 AM EST Narrative [facility] - 07/03/2022 9:02 AM EST Specimen requisition ordered. ??Separate Pathology report to follow David Dejesus MD PATHOLOGY/CYTOLOGY ORDERABLES Performing Organization Address [facility] [place] [address] * POCT Glucose (07/03/2022 7:37 AM EST) Pathologist [facility] POC Glucose 139 65 - 199 mg/dL [facility] Comment: Supplemental ranges: <140 mg/dL before meals <180 mg/dL all other times of the day Blood 07/03/2022 7:37 AM EST 07/03/2022 7:37 AM EST David Dejesus MD POINT OF CARE TEST ORDERABLES Performing Organization Address [facility] Co de Phone Number [facility] [place] [address] * UPPER GI ENDOSCOPY (07/03/2022 7:26 AM EST) Pathologist [facility] UPPER GI ENDOSCOPY [facility] Endoscopy Procedure Date: 07/03/2022 7:26 AM ? Patient Name: Jennifer Irving ? Date of : 1960 ? Age: 62 ? Order #: [id number] ? Instrument Name: [id number] ? Procedure: ? Upper GI endoscopy Indications: ? Dysphagia, Follow-up of Farrell's ? esophagus Providers: ? David Dejesus MD, Lucia Arroyo ? Tapan Agustin Referring MD: ?Ana Keith: ? Monitored Anesthesia Care [...] the procedure ? well. ? Findings: ? Upon entering the esophagus at 25 cm there was a ? membrane present consistent with esophageal ? sloughing. This was in place from 25-30 cm with ? stenosis consistent with the patient's known peptic ? stricture. There was normal mucosa from 30-33 cm and ? then a hiatal hernia from 33-37 cm. The patient's ? known circumferential Farrell's esophagus was present ? from the GE junction at 33 cm to 25 cm. There was ? persistent ulceration within the stenosis and ? biopsies were taken at the base of the ulcers at 30 ? mm and 25 cm. There was no tamara ulceration but ? simply evidence of inflammation. ? The stomach was normal. ? The examined duodenum was normal. ? Moderate Sedation: ? Not applicable - See Anesthesia documentation Impression: ?- Persistent esophageal stricture ? from 25-30 cm with C8M8 Farrell's ? esophagus and some ulceration - ? likely inflammatory which was ? biopsied Recommendation: ?- Await pathology results ? - Continue Sucralfate and Protonix ? Attending Participation: ? I personally performed the entire procedure. ? ___ David Dejesus MD 07/03/2022 9:08:54 AM This report has been signed electronically. Number of Addenda: 0 Note Initiated On: 07/03/2022 7:26 AM PROVATION 07/03/2022 7:26 AM EST Ana Gillespie CAMP MANAGER GENERAL SURGICAL ORD ERABLES PROVATION documented [...] 7:42 AM EST 100 mL/hr 100 mL/hr documented in this encounter Active and Recently Administered Medications Times are shown in EST. Continuous Medication Order 07/01/2022 07/02/2022 07/03/2022 lactated ringers infusion (CANCELED) 100 mL/hr, Intravenous, CONTINUOUS, Starting on Wed07/03/22 at 0745, Until Wed07/03/22 at 0946, Endoscopy (Day of Procedure) 0742 (New Bag - Prov ider: Gaby Mills RN)0841 (Paused - Provider: Jamar Spaulding CRNA - Comment: Switch to gravity)0842 (New Bag - Provider: Jamar Spaulding CRNA) documented in this encounter Care Teams Photoresist Printer Relationship Specialty Start Date End Date Ana Gillespie APRN [address] [place] [address] PCP - General Family Medicine 02/03/19 documented as of this encounter
--- OUTSIDE RECORDS SUMMARY | 2023-12-03 14:58 | XMS_ITS | Encounter Summary ---
Author Organization Formerly [facility] Address [facility] [place] [address] Care Team Providers Care Tool Polishing Machine Operator Name Role Phone Ana Gillespie APRN Primary Care Provider [phone] Encounter Details Date Type Department Care Team (Latest Contact Info) Description 08/14/2022 9:30 PM EDT - 08/14/2022 11:10 PM EDT Hospital En[place] [phone] Carlos Terry MD [facility] [place] [address] Discharge Disposition: Home Social History Tobacco Use [...] meter kit. 1 each 0 12/14/2014 Insulin [place], Disposable, (BD INSULIN PEN NEEDLE UF MINI) 31 x 07/23 NeedleIndications:Di abetes mellitus type 2, uncontrolled 1 Device by [facility].(Non-Drug; Combo Route) route 3 times daily as [...] 12/07/2023 1:00 PM EDT Appointment [place] [phone] 12/07/2023 2:00 PM EDT Office [place] [address] Geronimo Mojica MD [facility] DR THORACIC SURGERY [place], [place] [phone] 12/27/2023 11:30 AM EDT Office [place] [address] Noe Cuenca MD [facility] [place] [address] Scheduled Procedures Name Priority Associated Diagnoses Date/Ti me EGD, UPPER GI ENDOSCOPY (WRV U 2.09) Peptic stricture of esophagus documented as of this encounter Visit Diagnoses Not on filedocumented in this encounter Care Teams Tool Polishing Machine Operator Relationship Specialty Start Date End Date Ana Gillespie APRN [address] [place] [address] PCP - General Family Medicine 02/03/19 documented as of this encounter
--- OUTSIDE RECORDS SUMMARY | 2023-12-03 14:58 | XMS_ITS | Encounter Summary ---
Author Organization [facility] Address [facility] [place] [address] Care Team Providers Care Mercantile Reporter Name Role Phone Ana Gillespie VAUGHN Primary Care Provider [phone] Reason for Visit * Reason Onset Date Comments TeleHealth 05/20/2022 Medication and a llergy review. Encounter Details Date Type Department Care Team (Late st Contact Info) Description 05/20/2022 Telephone [place] [phone] Alfonso Rose MD [facility] [place] [address] TeleHealth (Medication and allergy review. ) Social History Tobacco Use Types Packs/Day [...] encounter Miscellaneous Notes * Telephone Encounter - Marilee Palomo RN - 05/20/2022 10:08 AM EST Unable to reach this patient by phone to review their medications and allergies prior to their upcoming tele-appointment with the Neurology provider. No message left. documented in this encounter Plan of Treatment Upcoming Encounters Date Type Department Care Team (Late st Contact Info) Description 12/07/2023 1:00 PM EDT Appointment [place] [address] 12/07/2023 2:00 PM EDT Office Visit [place] [address] Geronimo Mojica MD [facility] [place] [address] 12/27/2023 11:30 AM EDT Office [place] [address] Noe Cuenca MD [facility] [place] [address] Scheduled Procedures Name Priority Associated Diagnoses Date/Ti me EGD, UPPER GI ENDOSCOPY (WRV U 2.09) Peptic stricture of esophagus documented as of this encounter Visit Diagnoses Not on filedocumented in this encounter Care Teams Mercantile Reporter Relationship Specialty Start Date End Date Ana Gillespie APRN [address] [place] [address] PCP - General Family Medicine 02/03/19 documented as of this encounter
--- OUTSIDE RECORDS SUMMARY | 2023-12-03 14:58 | XMS_ITS | Encounter Summary ---
Author Organization [facility] [place] [address] Care Team Providers Care Solar Energy Systems Designer Name Role Phone Ana Gillespie VAUGHN Primary Care Provider [phone] Encounter Details Date Type Department Care Team (Late st Contact Info) Description 01/28/2022 Telephone Gastroenterology at [facility] [place] [phone] Ting Patton Social History Tobacco Use Types Packs/Day Years [...] encounter Miscellaneous Notes * Telephone Encounter - Ting Patton - 01/28/2022 12:14 PM EDT Jennifer Irving [id number] Diagnosis/Indication: Schedule EGD in two years Please review patient chart to confirm if [...] SCHEDULING QUESTIONS (ask all patient these questions) 1. Have you ever had a/an Upper Endoscopy before? Yes: Date 2 year ago If yes, did you have any problems with the procedure (such as waking up during the procedure, pain or difficulties afterwards, etc.)? No What type of sedation was used: General Anesthesia 2. Do you take any blood thinners or have you been diagnosed with a bleeding disorder that increases your risk of bleeding with procedures? No 3. Do you have a Pacemaker or Defibrillator device? If yes, send pool message to Cardiology with patient information and date or procedure. No 4. Are you a diabetic? If yes, call PCP/managing provider to discuss use of prep and any questions or concerns related to. No 5. Do you take any iron supplements or vitamins that contain iron? No 6. Do you have a preference regarding the gender of your provider? Yes tellez ANESTHESIA QUESTIONS (YES to any question, please book with Anesthesia support) 7. Have you ever been diagnosed with any of the following: Pulmonary Hypertension, Atrial Fibrillation (A-Fib) and/or Congential Heart Disease? No 8. Have you ever had an allergic or adverse reaction to Fentanyl or Versed? No 9. Have you had a problem with sedation or anesthesia? (Waking up during procedure, extreme confusion after, etc.) No 10. Do you have a diagnosis of Obstructive Sleep Apnea? No 11. Do you use a c-pap machine? Neither 12. Do you use an oxygen tank at home? No 13. Do you use a rescue inhaler more than twice per day? (COPD, severe asthma) No 14. Do you experience breathing problems when you lay flat for a period of time? No 15. Do you take prescription narcotic pain medications, including suboxone or methodone? No SCHEDULING CONFIRMATIONS: Please note any and all parts of your conversation with the patient here. 16. We offer all new patients an opportunity to have an appointment with one of our associate care providers to learn more about your upcoming procedure, ask questions and get answers. These appointments are offered via telehealth. Would you be interested in scheduling this appointment? (Only ask if NEW referral patient; skip this question if [facility] GI provider ordered the procedure.) No 17. Is there any other information or concerns you would like to us to share with your care team inrelation to your upcoming scheduled procedure? No 18. You must have a responsible alliance party who will drive you to your procedure, stay on campus for the entire duration of your procedure, and drive you home from your procedure. Who will likely be your pharmacy delivery driver for the procedure? *Please Verify the height and weight, and adjust if height and/or weight have changed* Estimated body mass index is 31.64 kg/m?? as calculated from the following: Height as of 09/23/21: 157.5 cm (5' 2). Weight as of 09/23/21: 78.5 kg (173 lb). Age:61 y.o. documented in this encounter Plan of Treatment Upcoming Encounters Date Type Department Care Team (Late st Contact Info) Description 12/07/2023 1:00 PM EDT Appointment [place] [address] 12/07/2023 2:00 PM EDT Office [place] [phone] Geronimo Mojica MD [facility] [place] [address] 12/27/2023 11:30 AM EDT Office [place] [phone] Noe Cuenca MD [facility] [place] [address] Scheduled Procedures Name Priority Associated Diagnoses Date/Ti me EGD, UPPER GI ENDOSCOPY (WRV U 2.09) Peptic stricture of esophagus documented as of this encounter Visit Diagnoses Not on filedocumented in this encounter Care Teams Solar Energy Systems Designer Relationship Specialty Start Date End Date Ana Gillespie APRN [address] [place] [address] PCP - General Family Medicine 02/03/19 documented as of this encounter
--- OUTSIDE RECORDS SUMMARY | 2023-12-03 14:58 | XMS_ITS | Encounter Summary ---
[place] [address] Care Team Providers Care Rapid Transit Operator Name Role Phone Ana Gillespie ACCOUNTING MACHINE OPERATOR Primary Care Provider [phone] Encounter Details Date Type Department Care Team (Late st Contact Info) Description 06/23/2022 Telephone [place] [phone] Ilene Sharma, RN Social History Tobacco Use Types Packs/Day [...] encounter Miscellaneous Notes * Telephone Encounter - Ilene Sharma RN - 06/23/2022 8:01 AM EST Patient's , Campos Irving left a voicemail regarding Jennifer's scheduled procedure (EGD)with Dr. Dejesus today. She is actively vomiting this morning and generally not feeling well enoughto make it in, but would very much like to reschedule PJ. Please call to reschedule. Thank you! documented in this encounter Plan of Treatment Upcoming Encounters Date Type Department Care Team (Late Contact Info) Description 12/07/2023 1:00 PM EDT Appointment [place] [phone] 12/07/2023 2:00 PM EDT Office Visit [place] [address] Geronimo Mojica MD [facility] [address] [place] [address] 12/27/2023 11:30 AM EDT Office [place] [address] Noe Cuenca MD [facility] DR [place] [address] Scheduled Procedures Name Priority Associated Diagnoses Date/Ti me EGD, UPPER GI ENDOSCOPY (WRV U 2.09) Peptic stricture of esophagus documented as of this encounter Visit Diagnoses Not on filedocumented in this encounter Additional Health Concerns Infection Onset Date Last Indicated Resolved Time Rule Out COVID-19 08/15/2022 08/15/2022 08/15/2022 11:30 AM EDT Rule Out COVID-19 08/15/2022 08/15/2022 08/15/2022 3:01 PM EDT Rule Out C. difficile 08/19/2022 08/19/20222022 8:33 PM EDT documented as of this encounter Care Teams Rapid Transit Operator Relationship Specialty Start Date End Date Ana Gillespie APRN [address] [place] [address] PCP - General Family Medicine 02/03/19 documented as of this encounter
--- OUTSIDE RECORDS SUMMARY | 2023-12-03 14:58 | XMS_ITS | Encounter Summary ---
Author Organization [facility] [place] [address] Care Team Providers Care Pesticide Control Inspector Name Role Phone Ana Gillespie VAUGHN Primary Care Provider [phone] Encounter Details Date Type Department Care Team (Late st Contact Info) Description 08/12/2022 Ancillary Procedure [place] [phone] Social History Tobacco Use Types Packs/Day Years [...] 12/07/2023 1:00 PM EDT Appointment [place] [phone] 12/07/2023 2:00 PM EDT Office Visit [place] [phone] Geronimo Mojica MD [facility] [place] [address] 12/27/2023 11:30 AM EDT Office [place] [phone] Noe Cuenca MD [facility] DR PULMONARY MEDICINE [place], [place] [phone] Scheduled Procedures Name Priority Associated Diagnoses Date/Ti me EGD, UPPER GI ENDOSCOPY (WRV U 2.09) Peptic stricture of esophagus documented as of this encounter Procedures Procedure Name Priority Date/Time Associated Diagnosis Comments FILM LIBRARY STORAGE ONLY CT CHEST Routine 08/12/2022 12:00 AM EDT documented in this encounter Results * Film Library- Storage Only CT Chest (08/12/2022 12:00 AM EDT) Narrative Dicom, Auditing User - 08/15/2022 8:36 AM EDT This exam is auto-finalizing. It's purpose is for storage only. Ayo Serna MD IMG FILM LIBRARY ORD ERABLES documented in this encounter Visit Diagnoses Not on filedocumented in this encounter Care Teams Pesticide Control Inspector Relationship Specialty Start Date End Date Ana Gillespie APRN [address] [place] [address] PCP - General Family Medicine 02/03/19 documented as of this encounter
--- OUTSIDE RECORDS SUMMARY | 2023-12-03 14:58 | XMS_ITS | Encounter Summary ---
Author Organization [facility] Address [facility] [place] [address] Care Team Providers Care Liner Checker Name Role Phone Ana Gillespie APRN Primary Care Provider [phone] Encounter Details Date Type Department Care Team (Late st Contact Info) Description 08/14/2022 External Results Administration [place] [phone] Social History Tobacco Use Types Packs/Day Years [...] 12/07/2023 1:00 PM EDT Appointment Pulmonology at [place] [phone] 12/07/2023 2:00 PM EDT Office Visit Thoracic Surgery at [place] [phone] Geronimo Mojica MD [facility] [place] [address] 12/27/2023 11:30 AM EDT Office Visit Pulmonology at [place] [phone] Noe Cuenca MD [facility] [place] [address] Scheduled Procedures Name Priority Associated Diagnoses Date/Ti me EGD, UPPER GI ENDOSCOPY (WRV U 2.09) Peptic stricture of esophagus documented as of this encounter Procedures Procedure Name Priority Date/Time Associated Diagnosis Comments ECG SCAN Routine 08/14/2022 documented in this encounter Results * Scan Doc: ECG (08/14/2022) Historical Provider MD LEÓN MGR SCAN EX T ORDR/RSLT documented in this encounter Visit Diagnoses Not on filedocumented in this encounter Additional Health Concerns Infection Onset Date Last Indicated Resolved Time Rule Out COVID-08/15/2022 08/15/2022 08/15/2022 11:30 AM EDT Rule Out COVID-19 08/15/2022 08/15/2022 08/15/2022 3:01 PM EDT documented as of this encounter Care Teams Liner Checker Relationship Specialty Start Date End Date Ana Gillespie APRN [address] [place] [address] PCP - General Family Medicine 02/03/19 documented as of this encounter
--- OUTSIDE RECORDS SUMMARY | 2023-12-03 14:58 | XMS_ITS | Encounter Summary ---
Author Organization [facility] Address [facility] [place] [address] Care Team Providers Care Pollution Control Technician Name Role Phone Ana Gillespie VAUGHN Primary Care Provider [phone] Encounter Details Date Type Department Care Team (Latest Contact Info) Description 05/21/2022 2:30 PM EST TH Visit (TeleHealth) [place] [address] Alfonso Rose MD [facility] [place] [address] Neuroleptic-induced parkinsonism Social History Tobacco Use Types [...] as of this encounter Progress Notes * Alfonso Rose MD - 05/21/2022 2:30 PM EST I had the chance to speak with Jennifer in neurological follow-up for tremor. She was last seen in February, and at that time he notices slight asymmetric tremor affecting her upper extremities bilaterally. Interval history is that she was able to wean herself off of the olanzapine. She has been doing well with some very residual tremor, but not as bad as it used to be. She states that at this point she is doing well enough that she does not need a follow-up appointment with me, and that she is going to give our office a call if she would like to see us again. In the meantime, my impression is that she does have a little slight touch of Parkinson's, but mostly this was medication related parki nsonism. She has improved to the point that she is functional without any complaints. At this pointI recommended that she continue exercise, and that she can see us on an as-needed basis. This was [id number] call with greater than 10 minutes spent in counseling discussion regarding the above assessment and plan, with additional 10 minutes in review of the medical record. documented in this encounter Plan of Treatment Upcoming Encounters Date Type Department Care Team (Late st Contact Info) Description 12/07/2023 1:00 PM EDT Appointment [place] [address] 12/07/2023 2:00 PM EDT Office Visit [place] [address] Geronimo Mojica MD [facility] [place] [address] 12/27/2023 11:30 AM EDT Office [place] [address] Noe Cuenca MD [facility] [place] [address] Scheduled Procedures Name Priority Associated Diagnoses Date/Ti me EGD, UPPER GI ENDOSCOPY (WRV U 2.09) Peptic stricture of esophagus documented as of this encounter Visit Diagnoses Diagnosis Neuroleptic-induced parkinsonism Secondary Parkinsonism documented in this encounter Care Teams Pollution Control Technician Relationship Specialty Start Date End Date Ana Gillespie APRN [address] [place] [address] PCP - General Family Medicine 02/03/19 documented as of this encounter
--- OUTSIDE RECORDS SUMMARY | 2023-12-03 14:58 | XMS_ITS | Encounter Summary ---
Author Organization [facility] [place] [address] Care Team Providers Care Route Sales Trainee Name Role Phone Ana Gillespie PRESS SETTER Primary Care Provider [phone] Encounter Details Date Type Department Care Team (Late st Contact Info) Description 08/08/2022 Ancillary Procedure [place] [phone] Ana Gillespie APRN [address] [place], [place] [id number] Social History Tobacco Use Types Packs/Day Years [...] 1:00 PM EDT Appointment [place] [phone] 12/07/2023 2:00 PM EDT Office Visit [place] [phone] Geronimo Mojica MD [facility] [place] [address] 12/27/2023 11:30 AM EDT Office Visit [place] [address] Noe Cuenca MD [facility] [place] [address] Scheduled Procedures Name Priority Associated Diagnoses Date/Ti me EGD, UPPER GI ENDOSCOPY (WRV U 2.09) Peptic stricture of esophagus documented as of this encounter Procedures Procedure Name Priority Date/Time Associated Diagnosis Comments FILM LIBRARY STORAGE ONLY CT LOWER EXTREMITY Routine 08/08/2022 12:00 AM EDT documented in this encounter Results * Film Library- Storage Only CT Lower Extremity (08/08/2022 12:00 AM EDT) Narrative [facility] - 08/14/2022 6:04 PM EDT This exam is auto-finalizing. It's purpose is for storage only. Ana Gillespie APRN IMG FILM LIBRARY ORD ERABLES Performing Organization Address City/State/[facility] Co de Phone Number [place], [place] documented in this encounter Visit Diagnoses Not on filedocumented in this encounter Care Teams Route Sales Trainee Relationship Specialty Start Date End Date Ana Gillespie APRN [address] [place] [address] PCP - General Family Medicine 02/03/19 documented as of this encounter
--- OUTSIDE RECORDS SUMMARY | 2023-12-03 14:58 | XMS_ITS | Encounter Summary ---
Author Organization [facility] Address [facility] [place] [address] Care Team Providers Care Score Caller Name Role Phone Ana Gillespie VAUGHN Primary Care Provider Encounter Details Date Type Department Care Team (Late st Contact Info) Description 03/31/2022 10:15 AM EST - 03/31/2022 10:45 AM EST Surgery Gastroenterology at [facility] [place] [address] David Dejesus MD [facility] [address] EGD WITH BIOPSY (WRVU 2.39) Social History [...] Sign Reading Time Taken Comments Blood Pressure 94/56 03/31/2022 10:45 AM EST Pulse 81 03/31/2022 9:07 AM EST Temperature 35.7 ??C (96.3 ??F) 03/31/2022 9:07 AM ES T Respiratory Rate 17 03/31/2022 10:45 AM EST Oxygen Saturation 100% 03/31/2022 10:45 AM EST Inhaled Oxygen Concentration - - Weight 74.4 kg (164 lb) 03/31/2022 9:07 AM EST Height 152.4 cm (5') 03/31/2022 9:07 AM EST Body Mass Index 32.03 03/31/2022 9:07 AM EST documented in this encounter Discharge Instructions * Discharge Instructions* Tegan Caballero RN - 03/31/2022 11:01 AM EST Upper GI Endoscopy: What to [...] the day after the procedure, use an [id number]-iih-rwkoais spray to numb your throat. Sucking on [...] occurs, please contact your Doctor. Please call [phone] before 8pm Mon-Fri with problems, questions or concerns. If you call after 8pm or on weekends, call the Hospital at [phone] and ask to speak to the Computer Security Manager information engineer and the log chipper operator will contact that person for you. When should you call for help? Call [phone] anytime you think you may need emergency [...] problems. Where can you learn more? [facility] View your After Visit Summary and more online at [email or web address] If you would like to provide feedback about your hospital experience, please call the Office of Patient and Family Relations at . If you have received this After Visit Summary in error, please immediately return it in person to the department, or notify the [facility] Privacy Office by calling toll free at between the hours of 8AM and 5PM to arrange for our retrieval of the documents at no cost to you. Content Version: 12.2 ?? [id number] [email or web address]. Care instructions adapted under license by [facility]. If you have questions about a medical condition or this instruction, always ask your healthcare professional. [employer] disclaims any warranty or liability for your [...] meter kit. 1 each 0 12/14/2014 Insulin [place], Disposable, (BD INSULIN PEN NEEDLE UF MINI) 31 x 3/16 NeedleIndications:Di abetes mellitus type 2, uncontrolled 1 Device by [facility].(Non-Drug; Combo Route) route 3 times daily as [...] as of this encounter H&P Notes * Trell Wiseman MD - 03/31/2022 7:07 AM EST Procedure: EGD Indication: Farrell's esophagus surveillance History of Present Illness: Jennifer Irving is a 61 y.o. F PMH non- dysplastic Farrell's, DM2, Obesity who presents for EGD for surveillance. Patient Active Problem List Diagnosis Code ??? GERD (gastroesophageal reflux disease) K21.9 ??? Farrell's esophagus K22.70 ??? T2DM (type 2 diabetes mellitus) E11.9 ??? BMI 37.0-37.9, adult Z68.37 ??? Bipolar disorder F31.9 ??? Neuroleptic-induced parkinsonism G21.11 Medications: Reviewed in EDH Allergies Allergen Reactions ??? Meperidine Hcl CIS - violently ill ??? Metformin Other (See Comments) Severe diarrhea Social History/Family History: Reviewed in EDH. No changes Exam: No data found. Axox3, nad Anicteric, MMM CTAB RRR, no m/r/g abd soft nt nd +bs Assessment and Plan: Proceed with EGD: ASA Grade: ASA 3 - Patient with moderate systemic disease with functional limitations Mallampati score:II (soft palate, uvula, fauces visible) Sedation plan: Moderate Conscious sedation Risks and benefits of the procedure were discussed with the patient. Consent has been signed. Trell Wiseman MD documented in this encounter Plan of Treatment Upcoming Encounters Date Type Department Care Team (Late st Contact Info) Description 12/07/2023 1:00 PM EDT Appoint[place] [address] 12/07/2023 2:00 PM EDT Office [place] [phone] Geronimo Mojica MD [facility] [place] [address] 12/27/2023 11:30 AM EDT Office [place] [phone] Noe Cuenca MD [facility] [place] [address] Scheduled Procedures Name Priority Associated Diagnoses Date/Ti me EGD, UPPER GI ENDOSCOPY (WRV U 2.09) Peptic stricture of esophagus documented as of this encounter Procedures Procedure Name Priority Date/Time Associated Diagnosis Comments SPECIMEN TO PATHOLOGY Routine 03/31/2022 10:36 AM EST SPECIMEN TO PATHOLOGY Routine 03/31/2022 10:36 AM EST SPECIMEN TO PATHOLOGY Routine 03/31/2022 10:36 AM EST SPECIMEN TO PATHOLOGY Routine 03/31/2022 10:36 AM EST SPECIMEN TO PATHOLOGY Routine 03/31/2022 10:36 AM EST SPECIMEN TO PATHOLOGY Routine 03/31/2022 10:36 AM EST SPECIMEN TO PATHOLOGY Routine 03/31/2022 10:36 AM EST SURGICAL PATHOLOGY REPORT Routine 03/31/2022 10:21 AM EST Endoscopic Us Exam, Esoph ([id number]) 03/31/2022 9:59 AM EST Schedule EGD in two years Upper Gi Endoscopy, Biopsy ([id number]) 03/31/2022 9:59 AM EST Schedule EGD in two years UPPER GI ENDOSCOPY Routine 03/31/2022 9: 56 AM EST POCT GLUCOSE Routine 03/31/2022 9:18 AM EST documented in this encounter Results * Specimen to Pathology (03/31/2022 10:36 AM EST) AP Specimen 03/31/2022 10:3 6 AM EST 03/31/2022 10:36 AM EST [facility] - 03/31/2022 10:36 AM EST Specimen requisition ordered. ??Separate Pathology report to follow David Dejesus MD PATHOLOGY/CYTOLOGY ORDERABLES Performing Organization Address City/[facility]/[place] [address] * Specimen to Pathology (03/31/2022 10:36 AM EST) AP Specimen 03/31/2022 10:3 6 AM EST 03/31/2022 10:36 AM EST Narrative [facility] - 03/31/2022 10:36 AM EST Specimen requisition ordered. ??Separate Pathology report to follow David Dejesus MD PATHOLOGY/CYTOLOGY ORDERABLES Performing Organization Address [facility] [place] [address] * Specimen to Pathology (03/31/2022 10:36 AM EST) AP Specimen 03/31/2022 10:3 6 AM EST 03/31/2022 10:36 AM EST Narrative [facility] - 03/31/2022 10:36 AM EST Specimen requisition ordered. ??Separate Pathology report to follow David Dejesus MD PATHOLOGY/CYTOLOGY ORDERABLES Performing Organization Address [facility] [place] [address] * Specimen to Pathology (03/31/2022 10:36 AM EST) AP Specimen 03/31/2022 10:3 6 AM EST 03/31/2022 10:36 AM EST Narrative [facility] - 03/31/2022 10:36 AM EST Specimen requisition ordered. ??Separate Pathology report to follow David Dejesus MD PATHOLOGY/CYTOLOGY ORDERABLES Performing Organization Address City/[facility] [place] [address] * Specimen to Pathology (03/31/2022 10:36 AM EST) AP Specimen 03/31/2022 10:3 6 AM EST 03/31/2022 10:36 AM EST Narrative [facility] - 03/31/2022 10:36 AM EST Specimen requisition ordered. ??Separate Pathology report to follow David Dejesus MD PATHOLOGY/CYTOLOGY ORDERABLES Performing Organization Address [facility] [place] [address] * Specimen to Pathology (03/31/2022 10:36 AM EST) AP Specimen 03/31/2022 10:3 6 AM EST 03/31/2022 10:36 AM EST Narrative [facility] - 03/31/2022 10:36 AM EST Specimen requisition ordered. ??Separate Pathology report to follow David Dejesus MD PATHOLOGY/CYTOLOGY ORDERABLES Performing Organization Address [facility] [place] [address] * Specimen to Pathology (03/31/2022 10:36 AM EST) AP Specimen 03/31/2022 10:3 6 AM EST 03/31/2022 10:36 AM EST Narrative [facility] - 03/31/2022 10:36 AM EST Specimen requisition ordered. ??Separate Pathology report to follow David Dejesus MD PATHOLOGY/CYTOLOGY ORDERABLES Performing Organization Address [facility] de Phone Number [facility] [place] [address] * Surgical Pathology Report (03/31/2022 10:21 AM EST) FINAL DIAGNOSIS (AP) [id number] ? Location: 4T; EA08; A The signing pathologist has (i) examined the relevant preparation(s) for the specimen(s) and (ii) rendered or confirmed the diagnosis(es). . ?Surgical Pathology DIAGNOSIS A - Esophagus at 30 cm, biopsy (Multiple): - ??Cardia- and fundic-type mucosa with mild chronic inflammation. - There is no evidence of intestinal metaplasia. B - Esophagus at 28 cm, biopsy (Multiple): - ??Farrell's esophagus, negative for dysplasia. C - Esophagus at 26 cm, biopsy (Multiple): - ??Farrell's esophagus, negative for dysplasia. D - Esophagus at 24 cm, biopsy (Multiple): - ??Farrell's esophagus with ulceration, negative for dysplasia. E - Esophagus at 22 cm, biopsy (Multiple): - ??Farrell's esophagus with ulceration, negative for dysplasia. F - Esophagus at 20 cm, biopsy (Multiple): - Granulation tissue consistent with ulcer base. G - Esophageal ulcer at 29 cm, biopsy (Multiple): - ??Farrell's esophagus with ulceration, negative for dysplasia. Electronically signed by: ?Kenneth MARTE PhD, Kimmy Verified: ??04/09/2022 9:14 ?? Pathologist Performed at: ??-[facility] Dept. of Pathology, [place] [address] Linux Kernel Engineer: Vishal Gilliam MD, FCAP, ??CLIA Certificate: [id number] SPECIMEN(S) SUBMITTED A - Esophagus at 30 cm, biopsy (Multiple) B - Esophagus at 28 cm, biopsy (Multiple) C - Esophagus at 26 cm, biopsy (Multiple) D - Esophagus at 24 cm, biopsy (Multiple) E - Esophagus at 22 cm, biopsy (Multiple) F - Esophagus at 20 cm, biopsy (Multiple) G - Esophageal ulcer at 29 cm, biopsy (Multiple) CLINICAL INFORMATION Farrell's surveillance SPECIMEN PROCESSING A - Labeled/Fixative : Esophagus at 30 cm, formalin. Quantity/Size: Two, averaging 0.3 cm. Tissue Description: Soft, pink-white tissues. Sections/Process ing: Submitted en toto ??in 1 cassette labeled A1. B - Labeled/Fixative : Esophagus at 28 cm, formalin. . SPECIMEN PROCESSING Quantity/Size: Two, averaging 0.2 cm. Tissue Description: Soft, pink tissues. Sections/Process ing: Submitted en toto ??in 1 cassette labeled B1. C - Labeled/Fixative : Esophagus at 26 cm, formalin. Quantity/Size: Two, averaging 0.2 cm. Tissue Description: Soft, pink tissues. Sections/Process ing: Submitted en toto ??in 1 cassette labeled C1. D - Labeled/Fixative : Esophagus at 24 cm, formalin. Quantity/Size: Three, averaging 0.1 cm. Tissue Description: Soft, pink tissues. Sections/Process ing: Submitted en toto ??in 1 cassette labeled D1. E - Labeled/Fixative : Esophagus at 22 cm, formalin. Quantity/Size: Five, averaging 0.1 cm. Tissue Description: Soft, pink-white tissues. Sections/Process ing: Submitted en toto ??in 1 cassette labeled E1. F - Labeled/Fixative : Esophagus at 20 cm, formalin. Quantity/Size: Two, averaging 0.2 cm. Tissue Description: Soft, pink-white tissues. Sections/Process ing: Submitted en toto ??in 1 cassette labeled F1. G - Labeled/Fixative : Esophageal ulcer at 29 cm, formalin. Quantity/Size: Three, averaging 0.2 cm. Tissue Description: Soft, pink-white tissues. Sections/Process ing: Submitted en toto ??in 1 cassette labeled G1. ??sns 04/09/2022 9:14 AM EST [facility] 03/31/2022 10:2 1 AM EST David Dejesus MD PATHOLOGY/CYTOLOGY ORDERABLES [facility] [place] [address] * UPPER GI ENDOSCOPY (03/31/2022 9:56 AM EST) UPPER GI ENDOSCOPY [facility] Endoscopy Procedure Date: 03/31/2022 9:56 AM ? Patient Name: Jennifer Irving ? Date of : 1960 ? Age: 61 ? Order #: [id number] ? Instrument Name: [id number] ? Procedure: ? Upper GI endoscopy Indications: ? Follow-up of Farrell's esophagus Providers: ? David Dejesus MD, Trell J. ? Eligio Wiseman RN, Kenna ? Chelsey Referring MD: ?Ana Young Medicines: ? Monitored Anesthesia Care Complications: ? [...] procedure ? well. ? Findings: ? The patient had a new diffuse esophageal stricture ? beginning at 20 cm requiring the use of an Ultraslim ? to pass through to the stomach - this is likely a ? peptic stricture in response to her esophagitis. ? There was one 10 mm ulcer at 29 cm. There was ? Farrell's esophagus from 20 cm to 30 cm without ? nodularity under white light and NBI. There was a ? hiatal hernia from 31-35 cm. Biopsies were taken in ? four quadrants for Farrell's esophagus (20, 22, 24, ? 26, 28, 30). We also took a separate jar of biopsy at ? the ulcer site at 30 cm. ? The stomach was normal. ? The examined duodenum was normal. ? Moderate Sedation: ? Not applicable - See Anesthesia documentation Impression: ?- Long segment Barretts with ? associated stricture - biopsied Recommendation: ?- Await pathology results ? - Continue BID PPI ? Attending Participation: ? I personally performed the entire procedure. ? ___ David Dejesus MD 03/31/2022 10:29:30 AM This report has been signed electronically. Number of Addenda: 0 Note Initiated On: 03/31/2022 9:56 AM PROVATION 03/31/2022 9:56 AM EST Ana Gillespie FOOD SERVICE WORKER GENERAL SURGICAL ORD ERABLES Performing Organization Address City/[facility] Co de Phone Number PROVATION * POCT Glucose (03/31/2022 9:18 AM EST) POC Glucose 180 65 - 199 mg/dL [facility] Comment: Supplemental ranges: <140 mg/dL before meals <180 mg/dL all other times of the day Blood 03/31/2022 9:18 AM EST 03/31/2022 9:18 AM EST David Dejesus MD POINT OF CARE TEST ORDERABLES Performing Organization Address [facility] de Phone Number [facility] [place] [phone] documented in this encounter Visit Diagnoses Not [...] 9:30 AM EST 100 mL/hr 100 mL/hr documented in this encounter Active and Recently Administered Medications Times are shown in EST. Continuous Medication Order 03/29/2022 03/30/2022 03/31/2022 lactated ringers infusion 100 mL/hr, Intravenous, CONTINUOUS, Starting on Wed03/31/22 at 0930, Until Wed03/31/22 at 1310, Endoscopy (Day of Procedure) 0930 (New Bag - Prov ider: Mckenzie Ricardo RN)0958 (Paused - Provider: Susy Juárez CRNA - Comment: Switch to gravity)0959 (Restarted - Provider: Susy Juárez CRNA)1010 (Anesthesia Volume Adjustment - Provider: Susy Jáurez CRNA)1021 (Anesthesia Volume Adjustment - Provider: Susy Juárez CRNA)1025 (Anesthesia Volume Adjustment - Provider: Susy Juárez CRNA)1034 (Anesthesia Volume Adjustment - Provider: Susy Juárez CRNA) documented in this encounter Care Teams Score Caller Relationship Specialty Start Date End Date Ana Gillespie APRN [address] [place] [address] PCP - General Family Medicine 02/03/19 documented as of this encounter
--- OUTSIDE RECORDS SUMMARY | 2023-12-03 14:58 | XMS_ITS | Encounter Summary ---
Author Organization [facility] Address [facility] [place] [address] Care Team Providers Care Assistant Printer Floor Covering Name Role Phone Ana Gillespie VAUGHN Primary Care Provider [phone] Encounter Details Date Type Department Care Team (Latest Contact Info) Description 03/31/2022 8:43 AM EST - 03/31/2022 11:10 AM EST Hospital Encounter Gastroenterology at [facility] [place] [address] David Dejesus MD [facility] [place] [address] Discharge Disposition: Home Social History Tobacco Use [...] Sign Reading Time Taken Comments Blood Pressure 108/56 03/31/2022 10:50 AM EST Pulse 81 03/31/2022 9:07 AM EST Temperature 35.7 ??C (96.3 ??F) 03/31/2022 9:07 AM ES T Respiratory Rate 19 03/31/2022 10:50 AM EST Oxygen Saturation 100% 03/31/2022 11:00 AM EST Inhaled Oxygen Concentration - - [...] the day after the procedure, use an ytpr-fjq-aikvals spray to numb your throat. Sucking on [...] occurs, please contact your Doctor. Please call [phone] before 8pm Mon-Fri with problems, questions or concerns. If you call after 8pm or on weekends, call the Hospital at [phone] and ask to speak to the Information Clerk [employer] cat wagon operator and the malter operator will contact that person for you. When should you call for help? Call [phone] anytime you think you may need emergency [...] any problems. Where can you learn more? [facility] View your After Visit Summary and more online at [email or web address] If you would like to provide feedback about your hospital experience, please call the Office of Patient and Family Relations at . If you have received this After Visit Summary in error, please immediately return it in person to the department, or notify the [facility] Privacy Office by calling toll free at between the hours of 8AM and 5PM to arrange for our retrieval of the documents at no cost to you. Content Version: 12.2 ?? 3619-4269 [employer]. Care instructions adapted under license by [facility]. If you have questions about a medical condition or this instruction, always ask your healthcare professional. [employer] disclaims any warranty or liability for your [...] meter kit. 1 each 0 12/14/2014 Insulin Acosta, Disposable, (BD INSULIN PEN NEEDLE UF MINI) 31 x 3/16 NeedleIndications:Di abetes mellitus type 2, uncontrolled 1 Device by [facility].(Non-Drug; Combo Route) route [...] 12/07/2023 1:00 PM EDT Appointment [place] [phone] 12/07/2023 2:00 PM EDT Office Visit [place] [address] Geronimo Mojica MD [facility] [place] [address] 12/27/2023 11:30 AM EDT Office [place] [phone] Noe Cuenca MD [facility] [place] [address] Scheduled Procedures Name Priority Associated Diagnoses Date/Ti [...] 10:21 AM EST Endoscopic Us Exam, Esoph ([id number]) 03/31/2022 9:59 AM EST Schedule EGD in two years Upper Gi Endoscopy, Biopsy ([id number]) 03/31/2022 9:59 AM EST Schedule EGD in two years UPPER GI ENDOSCOPY Routine 03/31/2022 9: 56 AM EST POCT GLUCOSE Routine 03/31/2022 9:18 AM EST documented in this encounter Results * Specimen to Pathology (03/31/2022 10:36 AM EST) AP Specimen 03/31/2022 10:3 6 AM EST 03/31/2022 10:36 AM EST [facility] LABORATORY - 03/31/2022 10:36 AM EST Specimen requisition ordered. ??Separate Pathology report to follow David Dejesus MD PATHOLOGY/CYTOLOGY ORDERABLES Performing Organization Address City/[facility] [address]/[place] [address] * Specimen to Pathology (03/31/2022 10:36 AM EST) AP Specimen 03/31/2022 10:3 6 AM EST 03/31/2022 10:36 AM EST Narrative [facility] - 03/31/2022 10:36 AM EST Specimen requisition ordered. ??Separate Pathology report to follow David Dejesus MD PATHOLOGY/CYTOLOGY ORDERABLES Performing Organization Address [facility] [address]/[facility] [place] [address] * Specimen to Pathology (03/31/2022 10:36 AM EST) AP Specimen 03/31/2022 10:3 6 AM EST 03/31/2022 10:36 AM EST Narrative [facility] - 03/31/2022 10:36 AM EST Specimen requisition ordered. ??Separate Pathology report to follow David Dejesus MD PATHOLOGY/CYTOLOGY ORDERABLES Performing Organization Address City/[facility] [address]/[facility] [place] [address] * Specimen to Pathology (03/31/2022 10:36 AM EST) AP Specimen 03/31/2022 10:3 6 AM EST 03/31/2022 10:36 AM EST Narrative [facility] - 03/31/2022 10:36 AM EST Specimen requisition ordered. ??Separate Pathology report to follow David Dejesus MD PATHOLOGY/CYTOLOGY ORDERABLES Performing Organization Address City/[facility] [address]/[facility] [place] [address] * Specimen to Pathology (03/31/2022 10:36 AM EST) AP Specimen 03/31/2022 10:3 6 AM EST 03/31/2022 10:36 AM EST Narrative [facility] - 03/31/2022 10:36 AM EST Specimen requisition ordered. ??Separate Pathology report to follow David Dejesus MD PATHOLOGY/CYTOLOGY ORDERABLES Performing Organization Address [facility] [address]/[facility] [place] [address] * Specimen to Pathology (03/31/2022 10:36 AM EST) AP Specimen 03/31/2022 10:3 6 AM EST 03/31/2022 10:36 AM EST Narrative [facility] - 03/31/2022 10:36 AM EST Specimen requisition ordered. ??Separate Pathology report to follow David Dejesus MD PATHOLOGY/CYTOLOGY ORDERABLES Performing Organization Address [facility] [place] [address] * Specimen to Pathology (03/31/2022 10:36 AM EST) AP Specimen 03/31/2022 10:3 6 AM EST 03/31/2022 10:36 AM EST Narrative [facility] - 03/31/2022 10:36 AM EST Specimen requisition ordered. ??Separate Pathology report to follow David Dejesus MD PATHOLOGY/CYTOLOGY ORDERABLES Performing Organization Address [facility] de Phone Number [facility] [place] [address] * Surgical Pathology Report (03/31/2022 10:21 AM EST) FINAL DIAGNOSIS (AP) [id number] ? Location: 4T; EA08; A The signing [...] Verified: ??04/09/2022 9:14 ?? Pathologist Performed at: ??-[facility] Dept. of [place]ology, [place] [address] Scaler: Vishal Gilliam MD, FCAP, ??CLIA Certificate: [id number] SPECIMEN(S) SUBMITTED A - Esophagus at 30 [...] AM EST David Dejesus MD PATHOLOGY/CYTOLOGY ORDERABLES Performing Organization Address City/State/[facility] Co de Phone Number [facility] [place] [address] * UPPER GI ENDOSCOPY (03/31/2022 9:56 AM EST) UPPER GI ENDOSCOPY [facility] Procedure Date: 03/31/2022 9:56 AM ? Patient Name: Jennifer Irving ? Date of : 1960 ? Age: 61 ? Order #: [id number] ? Instrument Name: [id number] ? Procedure: ? Upper GI endoscopy Indications: ? Follow-up of Farrell's esophagus Providers: ? David Dejesus MD, Trell Key. ? Eligio Wiseman RN, Kenna ? Chelsey Referring : ?Ana Young Medicines: ? Monitored Anesthesia Care [...] PROVATION 03/31/2022 9:56 AM EST Ana Gillespie APRN GENERAL SURGICAL ORD ERABLES Performing Organization Address City/[facility] [address]/[facility] Co de Phone Number PROVATION * POCT Glucose (03/31/2022 9:18 AM EST) POC Glucose 180 65 - 199 mg/dL [facility] Comment: Supplemental ranges: <140 mg/dL before meals <180 mg/dL all other times of the day Blood 03/31/2022 9:18 AM EST 03/31/2022 9:18 AM EST David Dejesus MD POINT OF CARE TEST ORDERABLES Performing Organization Address [facility] [address]/[facility] Co de Phone Number [facility] [place] [address] documented in this encounter Visit Diagnoses Not [...] CRNA)1010 (Anesthesia Volume Adjustment - Provider: Susy Juárez CRNA)1021 (Anesthesia Volume Adjustment - Provider: Susy Juárez CRNA)1025 (Anesthesia Volume Adjustment - Provider: Susy Juárez CRNA)1034 (Anesthesia Volume Adjustment - Provider: Susy Juárez CRNA) documented in this encounter Care Teams Assistant Printer Floor Covering Relationship Specialty Start Date End Date Ana Gillespie APRN [address] [place] [address] PCP - General Family Medicine 02/03/19 documented as of this encounter
--- OUTSIDE RECORDS SUMMARY | 2023-12-03 14:58 | XMS_ITS | Encounter Summary ---
Author Organization [facility] Address [facility] [place] [address] Care Team Providers Care Long Winder Tender Name Role Phone Ana Gillespie APRN Primary Care Provider [phone] Encounter Details Date Type Department Care Team (Late st Contact Info) Description 08/08/2022 12:15 AM EDT Ancillary Procedure [place] [phone] Social History Tobacco Use Types Packs/Day Years [...] 12/07/2023 1:00 PM EDT Appointment [place] [phone] 12/07/2023 2:00 PM EDT Office [place] [phone] Geronimo Mojica MD [facility] [place] [address] 12/27/2023 11:30 AM EDT [place] [phone] Noe Cuenca MD [facility] [place] [address] Scheduled Procedures Name Priority Associated Diagnoses Date/Ti me EGD, UPPER GI ENDOSCOPY (WRV U 2.09) Peptic stricture of esophagus documented as of this encounter Procedures Procedure Name Priority Date/Time Associated Diagnosis Comments FILM LIBRARY STORAGE ONLY DX CHEST Routine 08/08/2022 12:15 AM EDT documented in this encounter Results * Film Library- Storage Only DX Chest (08/08/2022 12:15 AM EDT) Narrative Dicom, Auditing User - 08/15/2022 8:43 AM EDT This exam is auto-finalizing. It's purpose is for storage only. Ayo Serna MD IMG FILM LIBRARY ORD ERABLES documented in this encounter Visit Diagnoses Not on filedocumented in this encounter Care Teams Long Winder Tender Relationship Specialty Start Date End Date Ana Gillespie APRN [address] [place] [address] PCP - General Family Medicine 02/03/19 documented as of this encounter
--- OUTSIDE RECORDS SUMMARY | 2023-12-03 14:58 | XMS_ITS | Encounter Summary ---
Author Organization [facility] [place] [address] Care Team Providers Care Community Service Aide Name Role Phone Ana Gillespie APRN Primary Care Provider [phone] Encounter Details Date Type Department Care Team (Late st Contact Info) Description 05/25/2022 Telephone Gastroenterology at [facility], [place] [phone] Jaymie Bass Social History Tobacco Use Types Packs/Day Years [...] encounter Miscellaneous Notes * Telephone Encounter - Jaymie Bass - 05/25/2022 12:22 PM EST Jennifer Irving [id number] EGD with Anesthesia within [address] Deejsus 05/25/22 Diagnosis/Indication: dysphagia Please review patient chart to confirm if [...] had a/an Upper Endoscopy before? Yes: Date 03/31/2022 If yes, did you have any problems [...] to. Yes: Controlled by diet or medication? Medication 5. Do you take any iron supplements or vitamins that contain iron? No 6. Do you have a preference regarding the gender of your provider? No (Dr. Dejesus please) ANESTHESIA QUESTIONS (YES to any question, please book with Anesthesia support) 7. Have you ever been diagnosed with Pulmonary Hypertension and/or Congential Heart Disease? No 8. Have you been diagnosed with A-Fib (atrial fibrillation) that is NOT being well controled with medications? No 9. Have you ever had an allergic or adverse reaction to Fentanyl or Versed? No 10. Have you had a problem with sedation or anesthesia? (Waking up during procedure, extreme confusion after, etc.) No 11. Do you have a diagnosis of Obstructive Sleep Apnea that requires the use of a c-pap machine? No 12. Do you use an oxygen tank [...] No 18. You must have a responsible constitution party who will drive you to your procedure, stay on campus for the entire duration of your procedure, and drive you home from your procedure. Who will likely be your bull driver for the procedure? yes *Please Verify the height and weight, and adjust if height and/or weight have changed* Estimated body mass index is 32.03 kg/m?? as calculated from the following: Height as of 03/31/22: 152.4 cm (5'). Weight as of 03/31/22: 74.4 kg (164 lb). Age:61 y.o. documented in this encounter Plan of Treatment Upcoming Encounters Date Type Department Care Team (Late st Contact Info) Description 12/07/2023 1:00 PM EDT [place] [address] 12/07/2023 2:00 PM EDT Office [place] [phone] Geronimo Mojica MD [facility] [place] [address] 12/27/2023 11:30 AM EDT [place] [phone] Noe Cuenca MD [facility] [place] [address] Scheduled Procedures Name Priority Associated Diagnoses Date/Ti me EGD, UPPER GI ENDOSCOPY (WRV U 2.09) Peptic stricture of esophagus documented as of this encounter Visit Diagnoses Not on filedocumented in this encounter Care Teams Community Service Aide Relationship Specialty Start Date End Date Ana Gillespie APRN [address] [place] [address] PCP - General Family Medicine 02/03/19 documented as of this encounter
--- OUTSIDE RECORDS SUMMARY | 2023-12-03 14:58 | XMS_ITS | Encounter Summary ---
[place] [address] Care Team Providers Care Spanish Literature Professor Name Role Phone Ana Gillespie VAUGHN Primary Care Provider [phone] Encounter Details Date Type Department Care Team (Late Contact Info) Description 06/23/2022 [place] [address] Chiquita James, RN Social History [...] Telephone Encounter - Chiquita James, RN - 06/23/2022 2:04 PM EST Incoming Vm from [facility] , expressing concern about her re- scheduled EGD for . He states the schedulers were not able to re-schedule her sooner as her order was not marked as urgent Campos is requesting her order be marked as urgent so she can get in to be evaluated sooner. Forwarded documented in this encounter Plan of Treatment Upcoming Encounters Date Type Department Care Team (Late Contact Info) Description 12/07/2023 1:00 PM EDT Appoint[place] [address] 12/07/2023 2:00 PM EDT Office [place] [address] Geronimo Mojica MD [facility] [place] [address] 12/27/2023 11:30 AM EDT [place] [phone] Noe Cuenca MD [facility] [place] [address] Scheduled Procedures Name Priority Associated Diagnoses Date/Ti me EGD, UPPER GI ENDOSCOPY (WRV U 2.09) Peptic stricture of esophagus documented as of this encounter Visit Diagnoses Not on filedocumented in this encounter Care Teams Spanish Literature Professor Relationship Specialty Start Date End Date Ana Gillespie APRN [address] [place] [address] PCP - General Family Medicine 02/03/19 documented as of this encounter
--- OUTSIDE RECORDS SUMMARY | 2023-12-03 14:58 | XMS_ITS | Encounter Summary ---
[place] [address] Care Team Providers Care Marketing Communication Manager Name Role Phone Ana Gillespie PILING CUTTER Primary Care Provider [phone] Encounter Details Date Type Department Care Team (Late st Contact Info) Description 05/28/2022 Telephone [place] [address] Chiquita James, RN Social History [...] Telephone Encounter - Chiquita James, RN - 05/28/2022 12:28 PM EST Incoming VM from [facility] , to cancel her scope for tomorrow. She is sick with the flu. They would like to re-schedule. Forwarded to endo schedulers documented in this encounter Plan of Treatment Upcoming Encounters Date Type Department Care Team (Late st Contact Info) Description 12/07/2023 1:00 PM EDT Appointment [place] [address] 12/07/2023 2:00 PM EDT Office Visit [place] [address] Geronimo Mojica MD [facility] [place] [address] 12/27/2023 11:30 AM EDT Office [place] [address] Noe Cuenca MD [facility] [place] [address] Scheduled Procedures Name Priority Associated Diagnoses Date/Ti me EGD, UPPER GI ENDOSCOPY (WRV U 2.09) Peptic stricture of esophagus documented as of this encounter Visit Diagnoses Not on filedocumented in this encounter Care Teams Marketing Communication Manager Relationship Specialty Start Date End Date Ana Gillespie APRN [address] [place] [address] PCP - General Family Medicine 02/03/19 documented as of this encounter
--- OUTSIDE RECORDS SUMMARY | 2023-12-03 14:58 | XMS_ITS | Encounter Summary ---
Author Organization [facility] [place] [address] Care Team Providers Care Aircraft Log Clerk Name Role Phone Ana Gillespie APRN Primary Care Provider [phone] Encounter Details Date Type Department Care Team (Late st Contact Info) Description 08/12/2022 12:05 AM EDT Ancillary Procedure [place] [phone] Social History Tobacco Use Types Packs/Day Years [...] 12/07/2023 1:00 PM EDT Appointment [place] [phone] 12/07/2023 2:00 PM EDT Office [place] [address] Geronimo Mojica MD [facility] [place] [address] 12/27/2023 11:30 AM EDT [place] [phone] Noe Cuenca MD [facility] [place] [address] Scheduled Procedures Name Priority Associated Diagnoses Date/Ti me EGD, UPPER GI ENDOSCOPY (WRV U 2.09) Peptic stricture of esophagus documented as of this encounter Procedures Procedure Name Priority Date/Time Associated Diagnosis Comments FILM LIBRARY STORAGE ONLY DX CHEST Routine 08/12/2022 12:05 AM EDT documented in this encounter Results * Film Library- Storage Only DX Chest (08/12/2022 12:05 AM EDT) Narrative Dicom, Auditing User - 08/15/2022 8:37 AM EDT This exam is auto-finalizing. It's purpose is for storage only. Ayo Serna MD IMG FILM LIBRARY ORD ERABLES documented in this encounter Visit Diagnoses Not on filedocumented in this encounter Care Teams Aircraft Log Clerk Relationship Specialty Start Date End Date Ana Gillespie APRN [address] [place] [address] PCP - General Family Medicine 02/03/19 documented as of this encounter
--- OUTSIDE RECORDS SUMMARY | 2023-12-03 14:58 | XMS_ITS | Encounter Summary ---
Author Organization [facility] [place] [address] Care Team Providers Care Process Planner Name Role Phone Ana Gillespie [employer] [facility] Primary Care Provider [phone] Encounter Details Date Type Department Care Team (Late st Contact Info) Description 08/09/2022 Ancillary Procedure [place] [phone] Ana Gillespie APRN [address] [place], [place] [id number] Social History Tobacco Use Types Packs/Day Years [...] 12/07/2023 1:00 PM EDT Appointment [place] [address] 12/07/2023 2:00 PM EDT Office Visit [place] [address] Geronimo Mojica MD [facility] [place] [address] 12/27/2023 11:30 AM EDT Office [place] [address] Noe Cuenca MD [facility] [place] [address] Scheduled Procedures Name Priority Associated Diagnoses Date/Ti me EGD, UPPER GI ENDOSCOPY (WRV U 2.09) Peptic stricture of esophagus documented as of this encounter Procedures Procedure Name Priority Date/Time Associated Diagnosis Comments FILM LIBRARY FLUORO OR P-XAP-DTMIAYE ONLY Routine 08/09/2022 12:00 AM EDT documented in this encounter Results * Film Library - Fluoro or C Arm Storage Only (08/09/2022 12:00 AM EDT) Narrative [facility] - 08/14/2022 6:05 PM EDT This exam is auto-finalizing. It's purpose is for storage only. Ana Gillespie APRN [employer] FILM LIBRARY ORD ERABLES [place] documented in this encounter Visit Diagnoses Not on filedocumented in this encounter Care Teams Process Planner Relationship Specialty Start Date End Date Ana Gillespie APRN [address] [place] [address] PCP - General Family Medicine 02/03/19 documented as of this encounter
--- OUTSIDE RECORDS SUMMARY | 2023-12-03 14:58 | XMS_ITS | Encounter Summary ---
Author Organization [facility] Address [facility] [place] [address] Care Team Providers Care Oracle Fusion Middleware Architect Name Role Phone Ana Gillespie VAUGHN Primary Care Provider [phone] Encounter Details Date Type Department Care Team (Latest Contact Info) Description 07/03/2022 7:08 AM EST - 07/03/2022 10:05 AM EST Hospital Encounter Gastroenterology at [facility] [place] [address] David Dejesus MD [facility] [place] [address] Discharge Disposition: Home Social History Tobacco Use [...] Sign Reading Time Taken Comments Blood Pressure 113/61 07/03/2022 9:30 AM EST Pulse 102 07/03/2022 7:26 AM EST Temperature 35.8 ??C (96.4 ??F) 07/03/2022 7:26 AM ES T Respiratory Rate 16 07/03/2022 7:26 AM EST Oxygen Saturation 90% 07/03/2022 9:30 AM EST Inhaled Oxygen Concentration - - Weight 69.9 kg (154 lb) 07/03/2022 7:26 AM EST Height 152.4 cm (5') 07/03/2022 7:26 AM EST Body Mass Index 30.08 07/03/2022 7:26 AM EST documented in this encounter Discharge Instructions * Attachments The following attachments cannot be sent through Care Everywhere. * EGD (Upper Endoscopy): Post-op (Gabonese) documented in this encounter Medications at Time [...] meter kit. 1 each 0 12/14/2014 Insulin [place], Disposable, (BD INSULIN PEN NEEDLE UF MINI) 31 x 3/16 NeedleIndications:Di abetes mellitus type 2, uncontrolled 1 Device by [facility].(Non-Drug; Combo Route) route 3 times daily as [...] for dosing. 15 mL 11 ??? Insulin [place], Disposable, (BD INSULIN PEN NEEDLE UF MINI) 31 x 3/16 Needle 1 Device by [facility].(Non-Drug; Combo Route) route 3 times daily as [...] 12/07/2023 1:00 PM EDT Appointment [place] [address] 12/07/2023 2:00 PM EDT Office Visit [place] [address] Geronimo Mojica MD [facility] [place] [address] 12/27/2023 11:30 AM EDT Office [place] [address] Noe Cuenca MD [facility] [place] [address] Scheduled Procedures Name Priority Associated Diagnoses Date/Ti me EGD, UPPER GI ENDOSCOPY (WRV U 2.09) Peptic stricture of esophagus documented as of this encounter Procedures Procedure Name Priority Date/Time Associated Diagnosis Comments SURGICAL PATHOLOGY REPORT Routine 07/03/2022 9:02 AM EST SPECIMEN TO PATHOLOGY Routine 07/03/2022 9:02 AM EST SPECIMEN TO PATHOLOGY Routine 07/03/2022 9:02 AM EST Upper Gi Endoscopy, Biopsy ([id number]) 07/03/2022 8:39 AM EST Farrell's esophagus without dysplasia POCT GLUCOSE Routine 07/03/2022 7:37 AM EST UPPER GI ENDOSCOPY Routine 07/03/2022 7: 26 AM EST documented in this encounter Results * Surgical Pathology Report (07/03/2022 9:02 AM EST) FINAL DIAGNOSIS (AP) [id number] ? Location: 4; [facility]; A The signing pathologist has (i) examined [...] Note). Note: Immunostains for p53, CD31 and [id number] were evaluated for final diagnosis. Electronically signed by: ?Chinmay Nguyen MD Verified: ??07/08/2022 16:29 ??Pathologist Performed at: ??-[facility] Dept. of [place]ology, [place] [address] Pad Machine Feeder: Vishal Gilliam MD, FCAP, ??CLIA Certificate: [id number] ADDITIONAL STUDIES Immunohistochemistry Studies: Formalin-fixed, paraffin-embedded tissue [...] note ? CD31 ? see note ? [id number] ? see note SPECIMEN(S) SUBMITTED A - [...] SPECIMEN PROCESSING ??pps 07/08/2022 4:29 PM EST [facility] 07/03/2022 9:02 AM EST David Dejesus MD PATHOLOGY/CYTOLOGY ORDERABLES [facility] [place] [address] * Specimen to Pathology (07/03/2022 9:02 AM EST) AP Specimen 07/03/2022 9:02 AM EST 07/03/2022 9:02 AM EST Narrative [facility] - 07/03/2022 9:02 AM EST Specimen requisition ordered. ??Separate Pathology report to follow David Dejesus MD PATHOLOGY/CYTOLOGY ORDERABLES Performing Organization Address [facility] Co de Phone Number [facility] [place] [address] * Specimen to Pathology (07/03/2022 9:02 AM EST) AP Specimen 07/03/2022 9:02 AM EST 07/03/2022 9:02 AM EST Narrative [facility] - 07/03/2022 9:02 AM EST Specimen requisition ordered. ??Separate Pathology report to follow David Dejesus MD PATHOLOGY/CYTOLOGY ORDERABLES Performing Organization Address [facility] [place] [address] * POCT Glucose (07/03/2022 7:37 AM EST) Pathologist [facility] POC Glucose 139 65 - 199 mg/dL [facility] Comment: Supplemental ranges: <140 mg/dL before meals <180 mg/dL all other times of the day Blood 07/03/2022 7:37 AM EST 07/03/2022 7:37 AM EST David Dejesus MD POINT OF CARE TEST ORDERABLES Performing Organization Address [facility] [place] [address] * UPPER GI ENDOSCOPY (07/03/2022 7:26 AM EST) Pathologist [facility] UPPER GI ENDOSCOPY [facility] Endoscopy Procedure Date: 07/03/2022 7:26 AM ? Patient Name: Jennifer Irving ? Date of : 1960 ? Age: 62 ? Order #: [id number] ? Instrument Name: [id number] ? Procedure: ? Upper GI endoscopy Indications: [...] PROVATION 07/03/2022 7:26 AM EST Ana Gillespie WAREHOUSE PRICING AND INVENTORY CLERK GENERAL SURGICAL ORD ERABLES PROVATION documented in [...] ider: Gaby Mills RN)[phone] (Paused - Provider: Jaamr Spaulding CRNA - Comment: Switch to gravity)0842 (New Bag - Provider: Jamar Spaulding CRNA) documented in this encounter Care Teams Oracle Fusion Middleware Architect Relationship Specialty Start Date End Date Ana Gillespie APRN [address] [place] [address] PCP - General Family Medicine 02/03/19 documented as of this encounter
--- OUTSIDE RECORDS SUMMARY | 2023-12-03 14:58 | XMS_ITS | Encounter Summary ---
[place] [address] Care Team Providers Care Station Mechanic Apprentice Name Role Phone Ana Gillespie VAUGHN Primary Care Provider [phone] Reason for Referral * Diagnostic Test (Routine) - Closed Specialty Diagnoses / Procedures Referred By Contac t Referred To Contact Cardiology Diagnoses Sepsis, due to unspecified organism, unspecified whether acute organ dysfunction present Procedures Mobile Sergey Chaparro MD [address] [facility] [place] [address] [facility] [place] [address] Referral ID Status Reason Start Date Expiration Date V isits Requested Visits Authorized [id number] Closed Specialty Service Requested 08/14/2022 08/14/2023 1 1 Reason for Visit * Diagnostic Test (Routine) - Closed Specialty Diagnoses / Procedures Referred By Contac t Referred To Contact Cardiology Diagnoses Sepsis, due to unspecified organism, unspecified whether acute organ dysfunction present Procedures Mobile Sergey Chaparro MD [address] [facility] [place] [address] [facility] [place] [address] Referral ID Status Reason Start Date Expiration Date V isits Requested Visits Authorized [id number] Closed Specialty Service Requested 08/14/2022 08/14/2023 1 1 Encounter Details Date Type Department Care Team (Latest Contact Info) Description 08/14/2022 3:35 PM EDT - 08/14/2022 9:29 PM EDT Hospital Encounter Mobile [place] [address] Sergey Ayala MD [address] [place] [address] Sepsis, due to unspecified organism, unspecified whether acute organ dysfunction present Discharge Disposition: Home Social History Tobacco Use [...] strips. 300 each 3 12/14/2014 Blood-Glucose Meter (HeydayUCH ULTRA2) KitIndications:Type 2 diabetes mellitus, uncontrolled by Other route. 1 = one blood glucose meter kit. 1 each 0 12/14/2014 Insulin [place], Disposable, (BD INSULIN PEN NEEDLE UF MINI) 31 x 3/16 NeedleIndications:Di abetes mellitus type 2, uncontrolled 1 Device by [facility].(Non-Drug; Combo Route) route 3 times daily as [...] 12/07/2023 1:00 PM EDT [place] [address] 12/07/2023 2:00 PM EDT Office [place] [address]1000 Geronimo Mojica MD [facility] [place] [address] 12/27/2023 11:30 AM EDT Office Visit Pulmonology at [facility] [place] [address] Noe Cuenca MD [facility] [place] [address] Scheduled Procedures Name Priority Associated Diagnoses Date/Ti me EGD, UPPER GI ENDOSCOPY (WRV U 2.09) Peptic stricture of esophagus documented as of this encounter Procedures Procedure Name Priority Date/Time Associated Diagnosis Comments ECHO COMPLETE Routine 08/17/2022 7:14 AM EDT Sepsis, due to unspecified organism, unspecified whether acute organ dysfunction present documented in this encounter Results * ECHO COMPLETE (08/17/2022 7:14 AM EDT) Anatomical Region Laterality Modality Other 08/14/2022 1:47 PM EDT Narrative 08/17/2022 7:53 AM EDT ? Echocardiogram Report Name: JENNIFER IRVING ? Study Date: 08/14/2022 01:47 PMBP: 115/77 mmHg ? Patient Location: [facility]CC^CV24^A : 1960 ? Height: 152 cm ? Account: [id number] Age: 62 yrs ? Weight: 69 kg Gender: Female ?BSA: 1.7 m2 Ordering Physician: SERGEY AYALA Referring Physician: SERGEY AYALA Performed By: MARGAUX Reason For Study: Sepsis Exam Location: [facility]. Interpretation Summary 1. Left ventricular systolic function is severely reduced. Left ventricular ejection fraction is estimated visually at 20%. There are segmental wall motion abnormalities: The apical to mid left ventricle is akinetic with preserved basal wall motion. 2. The right ventricle is of normal size. Right ventricular systolic function is moderately decreased. There are segmental wall motion abnormalities: The apical to mid right ventricle is akinetic with preserved basal wall motion. 3. No significant valve disease 4. No pericardial effusion No prior Procedure Complete-92645. Suboptimal quality. Left Ventricle Left ventricle is of normal size. Wall thickness is normal. Left ventricular systolic function is severely reduced. Left ventricular ejection fraction is estimated visually at 20%. There are segmental wall motion abnormalities. Right Ventricle The right ventricle is of normal size. Right ventricular systolic function is moderately decreased. Left Atrium The left atrium is normal. No abnormality of the interatrial septum is identified. Right Atrium The right atrium is normal. Aortic Valve The aortic valve is probably trileaflet. The aortic valve is not well visualized. There is no aortic stenosis. There is no aortic regurgitation. Mitral Valve The mitral valve is structurally normal. There is trace mitral regurgitation. Tricuspid Valve The tricuspid valve is structurally normal. There is mild tricuspid regurgitation. Pulmonic Valve The pulmonic valve is not well visualized. Great Arteries The aortic root is of normal size. No abnormalities are identified. Venous Inferior vena cava is normal in size. Pericardium/Pleural The pericardium appears normal. Hemodynamics The peak right ventricular systolic pressure is 26 mmHg. Left ventricular diastolic function is abnormal. severity is indeterminate due to tachycardia. Ejection Fraction ?2D Measurements ? Volumes LV Biplane EF: 24.8 % ? IVSd: 0.93 cm ?EDV Biplane: 81.3 ml ?LVPWd: 0.90 cm ? EDV Biplane Index: 48.8 ? ESV Biplane: 61.1 ml ? ESV Biplane Index: 36.7 Doppler TR max gurvinder: 237.1 cm/sec LV V1 VTI: 11.5 cm Ao V2 VTI: 14.7 cm Ao Max: 122.2 cm/sec Ao valve max: 6.0 mmHg Dimensionless index Aov: 0.79 I ?WMSI = 2.62 ? % Normal = 0 ?Segments ??Size X - Cannot ?2 - ?4 - ?1-2 ? small Interpret ?1 - Normal ?? Hypokinetic 3 - Akinetic Dyskinetic ?? 3-5 ? moderate 5 - ? 6-14 ?large Aneurysmal ?15-16 ?? diffuse Procedure Note Jhonny Berg MD - 08/17/2022 Echocardiogram Report Name: JENNIFER IRVING Study Date:08/14/2022 01:47 PMBP: 115/77 mmHg Patient Location: [facility]^CV24^A : 1960 Height: 152 cm Account: [id number] Age: 62 yrs Weight: 69 kg Gender: Female BSA: 1.7 m2 Ordering Physician: SERGEY AYALA Referring Physician: SERGEY AYALA Performed By: MARGAUX Reason For Study: Sepsis Exam Location: [facility]. Interpretation Summary 1. Left ventricular systolic function is severely reduced. Leftventricular ejection fraction is estimated visually at 20%. There are segmental wallmotion abnormalities: The apical to mid left ventricle is akinetic with preservedbasal wall motion. 2. The right ventricle is of normal size. Right ventricular systolicfunction is moderately decreased. There are segmental wall motion abnormalities: Theapical to mid right ventricle is akinetic with preserved basal wall motion. 3. No significant valve disease 4. No pericardial effusion No prior Procedure Complete-[id number]. Suboptimal quality. Left Ventricle Left ventricle is of normal size. Wall thickness is normal. Leftventricular systolic function is severely reduced. Left ventricular ejection fractionis estimated visually at 20%. There are segmental wall motionabnormalities. Right Ventricle The right ventricle is of normal size. Right ventricular systolic functionis moderately decreased. Left Atrium The left atrium is normal. No abnormality of the interatrial septum isidentified. Right Atrium The right atrium is normal. Aortic Valve The aortic valve is probably trileaflet. The aortic valve is not wellvisualized. There is no aortic stenosis. There is no aortic regurgitation. Mitral Valve The mitral valve is structurally normal. There is trace mitralregurgitation. Tricuspid Valve The tricuspid valve is structurally normal. There is mild tricuspidregurgitation. Pulmonic Valve The pulmonic valve is not well visualized. Great Arteries The aortic root is of normal size. No abnormalities are identified. Venous Inferior vena cava is normal in size. Pericardium/Pleural The pericardium appears normal. Hemodynamics The peak right ventricular systolic pressure is 26 mmHg. Leftventricular diastolic function is abnormal. severity is indeterminate due totachycardia. Ejection Fraction 2D Measurements Volumes LV Biplane EF: 24.8 % IVSd: 0.93 cm EDV Biplane: 81.3ml LVPWd: 0.90 cm EDV BiplaneIndex: 48.8 ESV Biplane: 61.1ml ESV BiplaneIndex: 36.7 Doppler TR max gurvinder: 237.1 cm/sec LV V1 VTI: 11.5 cm Ao V2 VTI: 14.7 cm Ao Max: 122.2 cm/sec Ao valve max: 6.0 mmHg Dimensionless index Aov: 0.79 I WMSI = 2.62 % Normal = 0 SegmentsSize X - Cannot 2 - 4 - 1-2small Interpret 1 - Normal Hypokinetic 3 - Akinetic Dyskinetic 3-5moderate 5 - 6-14large Aneurysmal 15-16diffuse Sergey Ayala MD ECHO ORDERABLE S documented in this encounter Visit Diagnoses Diagnosis Sepsis, due to unspecified organism, unspecified whether acute organ dysfunction present documented in this encounter Care Teams Station Mechanic Apprentice Relationship Specialty Start Date End Date Ana Gillespie APRN [address] [place] [address] PCP - General Family Medicine 02/03/19 documented as of this encounter
--- OUTSIDE RECORDS SUMMARY | 2023-12-03 14:58 | XMS_ITS | Encounter Summary ---
Author Organization [facility] Address [facility] [place] [address] Care Team Providers Care Roll Repairer Name Role Phone Ana Gillespie APRN Primary Care Provider [phone] Encounter Details Date Type Department Care Team (Late st Contact Info) Description 08/08/2022 12:05 AM EDT Ancillary Procedure [place] [address]1000 Social History Tobacco Use Types Packs/Day Years [...] 12/07/2023 1:00 PM EDT [place] [address] 12/07/2023 2:00 PM EDT Office [place] [address] Geronimo Mojica MD [facility] [place] [address] 12/27/2023 11:30 AM EDT [place] [address] Noe Cuenca MD [facility] [place] [address] Scheduled Procedures Name Priority Associated Diagnoses Date/Ti me EGD, UPPER GI ENDOSCOPY (WRV U 2.09) Peptic stricture of esophagus documented as of this encounter Procedures Procedure Name Priority Date/Time Associated Diagnosis Comments FILM LIBRARY STORAGE ONLY DX LOWER EXTREMITY Routine 08/08/2022 12:05 AM EDT documented in this encounter Results * Film Library- Storage Only DX Lower Extremity (08/08/2022 12:05 AM EDT) Narrative Dicom, Auditing User - 08/15/2022 8:37 AM EDT This exam is auto-finalizing. It's purpose is for storage only. Ayo Serna MD IMG FILM LIBRARY ORD ERABLES documented in this encounter Visit Diagnoses Not on filedocumented in this encounter Care Teams Roll Repairer Relationship Specialty Start Date End Date Ana Gillespie APRN [address] [place] [address] PCP - General Family Medicine 02/03/19 documented as of this encounter
--- OUTSIDE RECORDS SUMMARY | 2023-12-03 14:58 | XMS_ITS | Encounter Summary ---
Author Organization [facility] [place] [address] Care Team Providers Care Cyber Incident Handler Name Role Phone Ana Gillespie TUFTER OPERATOR Primary Care Provider [phone] Encounter Details Date Type Department Care Team (Late st Contact Info) Description 08/10/2022 Ancillary Procedure [place]iology [place] [address] Ana Gillespie APRN [address] [place], [place] [id number] Social History Tobacco Use Types Packs/Day Years [...] 12/07/2023 1:00 PM EDT Appointment [place] [address] 12/07/2023 2:00 PM EDT Office Visit [place] [address] Geronimo Mojica MD [facility] [place] [address] 12/27/2023 11:30 AM EDT Office Visit [place] [address] Noe Cuenca MD [facility] [place] [address] Scheduled Procedures Name Priority Associated Diagnoses Date/Ti me EGD, UPPER GI ENDOSCOPY (WRV U 2.09) Peptic stricture of esophagus documented as of this encounter Procedures Procedure Name Priority Date/Time Associated Diagnosis Comments FILM LIBRARY STORAGE ONLY DX HIP Routine 08/10/2022 12:00 AM EDT documented in this encounter Results * Film Library- Storage Only DX Hip (08/10/2022 12:00 AM EDT) Narrative QUIRINO - 08/14/2022 6:05 PM EDT This exam is auto-finalizing. It's purpose is for storage only. Ana Gillespie APRN IMG FILM LIBRARY ORD ERABLES [place], [place] documented in this encounter Visit Diagnoses Not on filedocumented in this encounter Care Teams Cyber Incident Handler Relationship Specialty Start Date End Date Ana Gillespie APRN [address] [place] [address] PCP - General Family Medicine 02/03/19 documented as of this encounter
--- OUTSIDE RECORDS SUMMARY | 2023-12-03 14:58 | XMS_ITS | Encounter Summary ---
Author Organization [facility] [place] [address] Care Team Providers Care Batch Mixing Truck Driver Name Role Phone Ana Gillespie APRN Primary Care Provider [phone] Encounter Details Date Type Department Care Team (Late st Contact Info) Description 08/15/2022 [place] [address] Unknown None Social History Tobacco Use Types Packs/Day Years [...] PM EDT Appointment [place] [address] 12/07/2023 2:00 PM EDT Office [place] [address]1000 Geronimo Mojica MD [facility] [place] [address] 12/27/2023 11:30 AM EDT [place] [address]1000 Noe Cuenca MD [facility] [place] [address] [phone] (work) Scheduled Procedures Name Priority Associated Diagnoses Date/Ti me EGD, UPPER GI ENDOSCOPY (WRV U 2.09) Peptic stricture of esophagus documented as of this encounter Procedures Procedure Name Priority Date/Time Associated Diagnosis Comments ECHOCARDIOGRAM TRANSTHORACIC Routine 08/15/2022 2:41 AM EDT documented in this encounter Results * Echocardiogram Transthoracic (08/15/2022 2:41 AM EDT) Anatomical Region Laterality Modality Cardiac Other 08/15/2022 2:41 AM EDT Narrative 08/15/2022 10:27 AM EDT ? Echocardiogram Report Name: JENNIFER IRVING ?Study Date: 08/15/2022 02:41 AM : 1960 Age: 62 yrs Gender: Female Performed By: Jesenia Mejía MD Interpreting Fellow: Jesenia Mejía. Interpretation Summary Limited study by on-call fellow to assess LVEF There is severely reduced LV systolic function with a visually estimated LVEF of 25%. There is akinesis of the apex and septum. Right ventricular function is mildly reduced with akinesis of the apex. A PA catheter is visualized within the RV. Left Ventricle Left ventricular ejection fraction is estimated visually at 25%. There are segmental wall motion abnormalities. Right Ventricle There is a catheter in the right ventricle. The right ventricle is of normal size. Pericardium/Pleural There is a small pericardial effusion. Procedure Note Carlos Terry MD - 08/15/2022 Echocardiogram Report Name: JENNIFER IRVING Study Date: 08/15/2022 02:41AM : 1960 Age: 62 yrs Gender: Female Performed By: Jesenia Mejía MD Interpreting Fellow: Jesenia Mejía. Interpretation Summary Limited study by on-call fellow to assess LVEF There is severely reduced LV systolic function with a visually estimatedLVEF of 25%. There is akinesis of the apex and septum. Right ventricular function is mildly reduced with akinesis of the apex. APA catheter is visualized within the RV. Left Ventricle Left ventricular ejection fraction is estimated visually at 25%. Thereare segmental wall motion abnormalities. Right Ventricle There is a catheter in the right ventricle. The right ventricle is ofnormal size. Pericardium/Pleural There is a small pericardial effusion. Unknown ECHO ORDERABLES documented in this encounter Visit Diagnoses Not on filedocumented in this encounter Care Teams Batch Mixing Truck Driver Relationship Specialty Start Date End Date Ana Gillespie APRN [address] [place] [address] PCP - General Family Medicine 02/03/19 documented as of this encounter
--- OUTSIDE RECORDS SUMMARY | 2023-12-03 14:58 | XMS_ITS | Encounter Summary ---
Author Organization [facility] [place] [address] Care Team Providers Care Elevator Repair Mechanic Name Role Phone Ana Gillespie APRN Primary Care Provider [phone] Encounter Details Date Type Department Care Team (Late st Contact Info) Description 07/09/2022 Orders Only [place] [phone] David Dejesus MD [facility] [place] [address] Farrlel's esophagus without dysplasia Social History Tobacco Use Types Packs/Day Years [...] 12/07/2023 1:00 PM EDT Appointment [place] [address]1000 12/07/2023 2:00 PM EDT Office Visit [place] [address]1000 Geronimo Mojica MD [facility] [place] [address] 12/27/2023 11:30 AM EDT Office Visit [place] [address] Noe Cuenca MD [facility] [place] [address] Scheduled Orders Name Type Priority Associated Diagnoses Orde r Schedule ENDOSCOPY CASE REQUEST: EGD, UPPER GI ENDOSCOPY Procedures Routine Farrell's esophagus without dysplasia Ordered: 07/09/2022 Scheduled Procedures Name Priority Associated Diagnoses Date/Ti me EGD, UPPER GI ENDOSCOPY (WRV U 2.09) Peptic stricture of esophagus documented as of this encounter Visit Diagnoses Diagnosis Farrell's esophagus without dysplasia Farrell's esophagus documented in this encounter Care Teams Elevator Repair Mechanic Relationship Specialty Start Date End Date Ana Gillespie APRN [address] [place] [address] PCP - General Family Medicine 02/03/19 documented as of this encounter
--- OUTSIDE RECORDS SUMMARY | 2023-12-03 14:58 | XMS_ITS | Encounter Summary ---
Author Organization [facility] [place] [address] Care Team Providers Care Helminthology Teacher Name Role Phone Ana Gillespie APRN Primary Care Provider [phone] Encounter Details Date Type Department Care Team (Late Contact Info) Description 06/05/2022 Telephone [place] [phone] Crissy Causey Social History Tobacco Use Types Packs/Day Years [...] encounter Miscellaneous Notes * Telephone Encounter - Crissy Causey - 06/05/2022 9:54 AM EST Called to reschedule Left a message documented in this encounter Plan of Treatment Upcoming Encounters Date Type Department Care Team (Late st Contact Info) Description 12/07/2023 1:00 PM EDT Appointment [place] [address] 12/07/2023 2:00 PM EDT Office [place] [phone] Geronimo Mojica MD [facility] DR THORACIC SURGERY [place], [place] [phone] 12/27/2023 11:30 AM EDT Office [place] [address] Noe Cuenca MD [facility] [place] [address] Scheduled Procedures Name Priority Associated Diagnoses Date/Ti me EGD, UPPER GI ENDOSCOPY (WRV U 2.09) Peptic stricture of esophagus documented as of this encounter Visit Diagnoses Not on filedocumented in this encounter Care Teams Helminthology Teacher Relationship Specialty Start Date End Date Ana Gillespie APRN [address] [place] [address] PCP - General Family Medicine 02/03/19 documented as of this encounter
--- OUTSIDE RECORDS SUMMARY | 2023-12-03 14:58 | XMS_ITS | Encounter Summary ---
Author Organization [facility] [place] [address] Care Team Providers Care Senior Construction Project Manager Name Role Phone Ana Gillespie VAUGHN Primary Care Provider [phone] Encounter Details Date Type Department Care Team (Late st Contact Info) Description 08/13/2022 Ancillary Procedure [place] [phone] Social History Tobacco Use Types Packs/Day Years [...] PM EDT Appointment [place] [phone] 12/07/2023 2:00 PM EDT Office [place] [phone] Geronimo Mojica MD [facility] [place] [address] 12/27/2023 11:30 AM EDT Office [place] [phone] Noe Cuenca MD [facility] DR PULMONARY MEDICINE [place], [place] [phone] Scheduled Procedures Name Priority Associated Diagnoses Date/Ti me EGD, UPPER GI ENDOSCOPY (WRV U 2.09) Peptic stricture of esophagus documented as of this encounter Procedures Procedure Name Priority Date/Time Associated Diagnosis Comments FILM LIBRARY STORAGE ONLY CT HEAD Routine 08/13/2022 12:00 AM EDT documented in this encounter Results * Film Library- Storage Only CT Head (08/13/2022 12:00 AM EDT) Narrative Dicom, Auditing User - 08/15/2022 8:36 AM EDT This exam is auto-finalizing. It's purpose is for storage only. Ayo Serna MD G FILM LIBRARY ORD ERABLES documented in this encounter Visit Diagnoses Not on filedocumented in this encounter Care Teams Senior Construction Project Manager Relationship Specialty Start Date End Date Ana Gillespie APRN [address] [place] [address] PCP - General Family Medicine 02/03/19 documented as of this encounter
--- OUTSIDE RECORDS SUMMARY | 2023-12-03 14:58 | XMS_ITS | Encounter Summary ---
Author Organization [facility] [place] [address] Care Team Providers Care Data Entry Representative Name Role Phone Ana Gillespie APRN Primary Care Provider [phone] Encounter Details Date Type Department Care Team (Late st Contact Info) Description 05/25/2022 Orders [place] [phone] David Dejesus MD [facility] [place] [address] Farrell's esophagus without dysplasia Social History Tobacco Use [...] 12/07/2023 1:00 PM EDT Appointment [place] [phone] 12/07/2023 2:00 PM EDT Office [place] [phone] Geronimo Mojica MD [facility] [place] [address] 12/27/2023 11:30 AM EDT Office [place] [address] Noe Cuenca MD [facility] [place] [address] Scheduled Procedures Name Priority Associated Diagnoses Date/Ti me EGD, UPPER GI ENDOSCOPY (WRV U 2.09) Peptic stricture of esophagus documented as of this encounter Visit Diagnoses Diagnosis Farrell's esophagus without dysplasia Farrell's esophagus documented in this encounter Care Teams Data Entry Representative Relationship Specialty Start Date End Date Ana Gillespie APRN [address] [place] [address] PCP - General Family Medicine 02/03/19 documented as of this encounter
--- OUTSIDE RECORDS SUMMARY | 2023-12-03 14:59 | XMS_ITS | Encounter Summary ---
Author Organization [facility] Address [facility] [place] [address] Care Team Providers Care Deal Architect Name Role Phone Ana Gillespie APRN Primary Care Provider [phone] Encounter Details Date Type Department Care Team (Late Contact Info) Description 09/16/2020 Orders Only [place] [phone] David Dejesus MD [facility] DR GASTROENTEROLOGY [place], [place] [phone] Social History Tobacco Use Types Packs/Day Years Used Date Smoking Tobacco: Every Day Cigarettes 0.5 11 Smokeless Tobacco: Never Alcohol Use Standard Drinks/Week Comments Yes 1 (1 standard drink = 0.6 oz pur e alcohol) a couple times a month Sex and Gender Information Value Date Recorded Sex Assigned at Not on file Gender Identity Not on file Sexual Orientation Not on file documented as of this encounter Plan of Treatment Upcoming Encounters Date Type Department Care Team (Late st Contact Info) Description 12/07/2023 1:00 PM EDT Appointment [place] [address] 12/07/2023 2:00 PM EDT Office Visit [place] [address] Geronimo Mojica MD [facility] DR THORACIC SURGERY [place], [place] [phone] 12/27/2023 11:30 AM EDT Office [place] [address] Noe Cuenca MD [facility] [place] [address] Scheduled Procedures Name Priority Associated Diagnoses Date/Ti me EGD, UPPER GI ENDOSCOPY (WRV U 2.09) Peptic stricture of esophagus documented as of this encounter Visit Diagnoses Not on filedocumented in this encounter Care Teams Deal Architect Relationship Specialty Start Date End Date Ana Gillespie APRN [address] [place] [address] PCP - General Family Medicine 02/03/19 documented as of this encounter
--- OUTSIDE RECORDS SUMMARY | 2023-12-03 14:59 | XMS_ITS | Encounter Summary ---
Author Organization [facility] [place] [address] Care Team Providers Care Business Analyst Ecommerce Name Role Phone Ana Gillespie APRN Primary Care Provider [phone] Encounter Details Date Type Department Care Team (Late Contact Info) Description 06/25/2021 [place] [phone] David Dejesus MD [facility] [place] [address] Gastroesophageal reflux disease with esophagitis without hemorrhage Social History Tobacco Use Types Packs/Day Years [...] 12/07/2023 1:00 PM EDT [place] [phone] 12/07/2023 2:00 PM EDT Office [place] [address] Geronimo Mojica MD [facility] [place] [address] 12/27/2023 11:30 AM EDT [place] [address] Noe Cuenca MD [facility] [place] [address] Scheduled Procedures Name Priority Associated Diagnoses Date/Ti me EGD, UPPER GI ENDOSCOPY (WRV U 2.09) Peptic stricture of esophagus documented as of this encounter Visit Diagnoses Diagnosis Gastroesophageal reflux disease with esophagitis without hemorrhage documented in this encounter Care Teams Business Analyst Ecommerce Relationship Specialty Start Date End Date Ana Gillespie APRN [address] [place] [address] PCP - General Family Medicine 02/03/19 documented as of this encounter
--- OUTSIDE RECORDS SUMMARY | 2023-12-03 14:59 | XMS_ITS | Encounter Summary ---
[place] [address] Care Team Providers Care Animal Rescuer Name Role Phone Ana Gillespie VAUGHN Primary Care Provider [phone] Reason for Visit * Reason Onset Date Comments Prior Authorization 09/18/2020 Encounter Details Date Type Department Care Team (Late st Contact Info) Description 09/18/2020 Telephone [place] [address] Francoise Vides CMA GASTROENTEROLOGY DEPT Prior Authorization Social History Tobacco Use Types [...] encounter Miscellaneous Notes * Telephone Encounter - Francoise Vides CMA - 09/18/2020 11:10 AM EDT Medication Prior Authorization 4L Gastroenterology / [place] [address] ?? Subscriber Insurance: [place] Medicaid ?? Phone: . Fax: ? Physician: David Dejesus ? Return ?? Pharmacy: [facility] ? Medication Requested: pantoprazole ?? Strength: 40 mg Frequency: BID ?? Disp.: 180 Refills: 3 ?? Currently taking: n Diagnosis for this medication: Farrell's w/ dysplasia, and GERD ?? ICD-10 code: ?? Prior medications trialed in this patient: Pantoprazole QD, esomperazole, and omeprazole,tums,zantac ? Medication: Outcome/Adverse Reactions: treatment failure ?? Decision: approved Start:09/18/20 End: 09/18/21 ?? Tracking number/Case number/Reference number: [id number] ? documented in this encounter Plan of Treatment Upcoming Encounters Date Type Department Care Team (Late st Contact Info) Description 12/07/2023 1:00 PM EDT Appointment Pulmonology at [place] [phone] 12/07/2023 2:00 PM EDT Office Visit Thoracic Surgery at [place] [phone] Geronimo Mojica MD [facility] [place] [address] 12/27/2023 11:30 AM EDT Office [place] [address] Noe Cuenca MD [facility] [place] [address] Scheduled Procedures Name Priority Associated Diagnoses Date/Ti me EGD, UPPER GI ENDOSCOPY (WRV U 2.09) Peptic stricture of esophagus documented as of this encounter Visit Diagnoses Not on filedocumented in this encounter Care Teams Animal Rescuer Relationship Specialty Start Date End Date Ana Gillespie APRN [address] [place] [address] PCP - General Family Medicine 02/03/19 documented as of this encounter
--- OUTSIDE RECORDS SUMMARY | 2023-12-03 14:59 | XMS_ITS | Encounter Summary ---
Author Organization [facility] Address [facility] [place] [address] Care Team Providers Care Astronautical Engineer Name Role Phone Ana Gillespie VAUGHN Primary Care Provider [phone] Encounter Details Date Type Department Care Team (Late st Contact Info) Description 09/08/2021 Telephone [place]astroenterology [place] [address] Nicole Mariscal Social History Tobacco Use Types Packs/Day Years [...] Miscellaneous Notes * Telephone Encounter - Nicole Mariscal - 09/08/2021 9:45 AM EDT Left message for patient. Dr. Dejesus requested that patient be moved up for her upper endoscopy from 09/16/21 to 09/09/21 on his consult time. documented in this encounter Plan of Treatment Upcoming Encounters Date Type Department Care Team (Late st Contact Info) Description 12/07/2023 1:00 PM EDT Appointment [place] [phone] 12/07/2023 2:00 PM EDT Office [place] [phone] [facility] [place] [address] 12/27/2023 11:30 AM EDT Office [place] [phone] Noe Cuenca MD [facility] [place] [address] Scheduled Procedures Name Priority Associated Diagnoses Date/Ti me EGD, UPPER GI ENDOSCOPY (WRV U 2.09) Peptic stricture of esophagus documented as of this encounter Visit Diagnoses Not on filedocumented in this encounter Care Teams Astronautical Engineer Relationship Specialty Start Date End Date Ana Gillespie APRN [address] [place] [address] PCP - General Family Medicine 02/03/19 documented as of this encounter
--- OUTSIDE RECORDS SUMMARY | 2023-12-03 14:59 | XMS_ITS | Encounter Summary ---
Author Organization [facility] Address [facility] [place] [address] Care Team Providers Care Factory Lay Out Engineer Name Role Phone Ana Gillespie CORPORATE LAW SPECIALIST Primary Care Provider [phone] Encounter Details Date Type Department Care Team (Late st Contact Info) Description 10/29/2021 Telephone [place] [address] Juice Maxwell RN Social History [...] Telephone Encounter - Juice Maxwell RN - 10/29/2021 1:57 PM EDT Pt requesting call back from Endo schedulers to schedule EGD. Encounter forwarded to Endo Schedulers to make them aware. documented in this encounter Plan of Treatment Upcoming Encounters Date Type Department Care Team (Late st Contact Info) Description 12/07/2023 1:00 PM EDT Appointment [place] [address] 12/07/2023 2:00 PM EDT Office Visit [place] [address] Geronimo Mojica MD [facility] [place] [address] 12/27/2023 11:30 AM EDT Office [place] [address] Noe Cuenca MD [facility] [place] [address] Scheduled Procedures Name Priority Associated Diagnoses Date/Ti me EGD, UPPER GI ENDOSCOPY (WRV U 2.09) Peptic stricture of esophagus documented as of this encounter Visit Diagnoses Not on filedocumented in this encounter Care Teams Factory Lay Out Engineer Relationship Specialty Start Date End Date Ana Gillespie APRN [address] [place] [address] PCP - General Family Medicine 02/03/19 documented as of this encounter
--- OUTSIDE RECORDS SUMMARY | 2023-12-03 14:59 | XMS_ITS | Encounter Summary ---
Author Organization [facility] [place] [address] Care Team Providers Care Emr Specialist Name Role Phone Ana Gillespie APRN Primary Care Provider [phone] Encounter Details Date Type Department Care Team (Late st Contact Info) Description 12/01/2021 Telephone [place] [phone] Alla Mejia Social History Tobacco Use Types Packs/Day Years [...] encounter Miscellaneous Notes * Telephone Encounter - Alla Mejia - 12/01/2021 4:07 PM EDT Jennifer Irving [id number] Diagnosis/Indication: folow-up esophagitis Please review patient chart to confirm if [...] had a/an Upper Endoscopy before? Yes: Date 09/23/2021 If yes, did you have any problems [...] Yes: Controlled by diet or medication? Both 5. Do you take any iron supplements or vitamins that contain iron? No 6. Do you have a preference regarding the gender of your provider? Yes Dr. Dejesus ANESTHESIA QUESTIONS (YES to any question, [...] your procedure. Who will likely be your mail truck driver for the procedure? *Please Verify [...] 12/07/2023 1:00 PM EDT [place]ointment [place] [address] 12/07/2023 2:00 PM EDT Office [place] [address] Geronimo Mojica MD [facility] [place] [address] 12/27/2023 11:30 AM EDT Office [place] [address] Noe Cuenca MD [facility] [place] [address] Scheduled Procedures Name Priority Associated Diagnoses Date/Ti me EGD, UPPER GI ENDOSCOPY (WRV U 2.09) Peptic stricture of esophagus documented as of this encounter Visit Diagnoses Not on filedocumented in this encounter Care Teams Emr Specialist Relationship Specialty Start Date End Date Ana Gillespie APRN [address] [place] [address] PCP - General Family Medicine 02/03/19 documented as of this encounter
--- OUTSIDE RECORDS SUMMARY | 2023-12-03 14:59 | XMS_ITS | Encounter Summary ---
[place] [address] Care Team Providers Care Cold Roll Packer Sheet Iron Name Role Phone Ana Gillespie APRN Primary Care Provider [phone] Encounter Details Date Type Department Care Team (Late Contact Info) Description 12/26/2021 [place] [phone] Rober Tobin Social History Tobacco Use Types Packs/Day Years [...] encounter Miscellaneous Notes * Telephone Encounter - Rober Tobin - 12/26/2021 3:39 PM EDT Inbound/Outbound: Outbound Spoke to Patient/Left Message: Left message Notes: Outbound call to patient to advise provider schedule change on 01/13 will now be with Dr. Bowen. Asked patient to call back if questions or wanted to reschedule with Dr. Dejesus on different day. Left message. Return calls can be handled by: Endoscopy Rodding Anode Worker [id number] documented in this encounter Plan of Treatment Upcoming Encounters Date Type Department Care Team (Late st Contact Info) Description 12/07/2023 1:00 PM EDT [place] [address] 12/07/2023 2:00 PM EDT Office [place] [address] Geronimo Mojica MD [facility] [place] [address] 12/27/2023 11:30 AM EDT [place] [address] Noe Cuenca MD [facility] [place] [address] Scheduled Procedures Name Priority Associated Diagnoses Date/Ti me EGD, UPPER GI ENDOSCOPY (WRV U 2.09) Peptic stricture of esophagus documented as of this encounter Visit Diagnoses Not on filedocumented in this encounter Care Teams Cold Roll Packer Sheet Iron Relationship Specialty Start Date End Date Ana Gillespie APRN [address] [place] [address] PCP - General Family Medicine 02/03/19 documented as of this encounter
--- OUTSIDE RECORDS SUMMARY | 2023-12-03 14:59 | XMS_ITS | Encounter Summary ---
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 Name Role Phone Ana Gillespie VAUGHN Primary Care Provider [phone] Encounter Details Date Type Department Care Team (Latest Contact Info) Description 03/01/2020 6:57 AM EDT - 03/01/2020 10:26 AM EDT Hospital Encounter Gastroenterology at [facility] [place] [address] David Dejesus MD [facility] [place] [address] Discharge Disposition: Home Social History Tobacco Use [...] Sign Reading Time Taken Comments Blood Pressure 170/68 03/01/2020 10:00 AM EDT Pulse 83 03/01/2020 7:13 AM EDT Temperature 36.6 ??C (97.8 ??F) 03/01/2020 7:13 AM ED T Respiratory Rate 16 03/01/2020 10:00 AM EDT Oxygen Saturation 99% 03/01/2020 10:00 AM EDT Inhaled Oxygen Concentration - - Weight 79.4 kg (175 lb) 03/01/2020 7:13 AM EDT Height 154.9 cm (5' 1) 03/01/2020 7:13 AM EDT Body Mass Index 33.07 03/01/2020 7:13 AM EDT documented in this encounter Discharge Instructions * Discharge Instructions* Jennifer Hammond RN - 03/01/2020 9:25 AM EDT Upper GI Endoscopy: What to [...] home? Activity Rest when you feel tired. ?? You can do your normal activities when it feels okay to do so. Diet ?? Follow your doctor's directions for eating. ?? Unless your doctor has told you not to, drink plenty of fluids. This helps to replace the fluidsthat were lost during the prep. ?? Do not drink alcohol. Medicines ?? Your doctor will tell you if and when you can restart your medicines. He or she will also give you instructions about taking any new medicines. ?? If you take blood thinners, such as warfarin (Coumadin), clopidogrel (Plavix), or aspirin, be sure to talk to your doctor. He or she will tell you if and when to start taking those medicines again. Make sure that you understand exactly what your doctor wants you to do. ?? If polyps were removed or a biopsy was done during the test, your doctor may tell you not to take aspirin or other anti-inflammatory medicines for a few days. These include ibuprofen (Advil, Motrin) and naproxen (Aleve). ?? If you have a sore throat the day after the procedure, use an [id number] spray to numb your throat. Sucking on throat lozenges and gargling with warm salt water may also help relieve your symptoms. Other instructions ?? For your safety, do not drive or operate machinery until the medicine wears off and you can think clearly. Your doctor may tell you not to drive or operate machinery until the day after your test. ?? Do not sign legal documents or make major decisions until the medicine wears off and you can think clearly. The anesthesia can make it hard for you to fully understand what you are agreeing to. Additional Information for Sedation Patients For patients who received sedation: ?? You may have received medications before and/or during your procedure which effects your judgement and reaction time. ?? Do not drive, operate machinery, drink alcoholic beverages or make important decisions for 24 hours. ?? Be careful on stairs as you may be unsteady on your feet. ?? You may eat a regular diet as tolerated. ?? Do not smoke if you are alone. ?? IV site: Slight redness or tenderness is normal, you can use a warm compress if you would like. If tenderness and/or redness increase or if foul drainage occurs, please contact your Doctor. Please call [phone] before 8pm Mon-Fri with problems, questions or concerns. If you call after 8pm or on weekends, call the Hospital at [phone] and ask to speak to the Vp Account Director windows application administrator and the rubbing bed operator will contact that person for you. When should you call for help? Call [phone] anytime you think you may need emergency care. For example, call if: ?? You passed out (lost consciousness). ?? You pass maroon or bloody stools. ?? You have trouble breathing. Call your doctor now or seek immediate medical care if: ?? You have pain that does not get better after you take pain medicine. ?? You are sick to your stomach or cannot drink fluids. ?? You have new or worse belly pain. ?? You have blood in your stools. ?? You have a fever. ?? You cannot pass stools or gas. Watch closely for changes in your health, and be sure to contact your doctor if you have any problems. Where can you learn more? [facility] View your After Visit Summary and more online at [email or web address] If you would like to provide feedback about your hospital experience, please call the Office of Patient and Family Relations at . If you have received this After Visit Summary in error, please immediately return it in person to the department, or notify the [facility] Privacy Office by calling toll free at between the hours of 8AM and 5PM to arrange for our retrieval of the documents at no cost to you. Content Version: 12.2 ?? 9215-6092 [employer]. Care instructions adapted under license by [facility]. If you have questions about a medical condition or this instruction, always ask your healthcare professional. [employer] disclaims any warranty or liability for your use of this information. Colonoscopy: What to Expect at Home Your Recovery Your doctor will talk to you about when you will need your next colonoscopy. Your doctor can help you decide how often you need to be checked. This will depend on the results of your test and your risk for colorectal cancer. After the test, you may be bloated or have gas pains. You may need to pass gas. If a biopsy was done or a polyp was removed, you may have streaks of blood in your stool (feces) for a few days. Problems such as heavy rectal bleeding may not occur until several weeks after the test. This isn't common. But it can happen after polyps are removed. This care sheet gives you a general idea about how long it will take for you to recover. But each person recovers at a different pace. Follow the steps below to get better as quickly as possible. How can you care for yourself at home? Activity Rest when you feel tired. ?? You can do your normal activities when it feels okay to do so. Diet ?? Follow your doctor's directions for eating. ?? Unless your doctor has told you not to, drink plenty of fluids. This helps to replace the fluidsthat were lost during the colon prep. ?? Do not drink alcohol. Medicines ?? Your doctor will tell you if and when you can restart your medicines. He or she will also give you instructions about taking any new medicines. ?? If you take blood thinners, such as warfarin (Coumadin), clopidogrel (Plavix), or aspirin, be sure to talk to your doctor. He or she will tell you if and when to start taking those medicines again. Make sure that you understand exactly what your doctor wants you to do. ?? If polyps were removed or a biopsy was done during the test, your doctor may tell you not to take aspirin or other anti-inflammatory medicines for a few days. These include ibuprofen (Advil, Motrin) and naproxen (Aleve). Other instructions ?? For your safety, do not drive or operate machinery until the medicine wears off and you can think clearly. Your doctor may tell you not to drive or operate machinery until the day after your test. ?? Do not sign legal documents or make major decisions until the medicine wears off and you can think clearly. The anesthesia can make it hard for you to fully understand what you are agreeing to. Additional Information for Sedation Patients For patients who received sedation: ?? You may have received medications before and/or during your procedure which effects your judgement and reaction time. ?? Do not drive, operate machinery, drink alcoholic beverages or make important decisions for 24 hours. ?? Be careful on stairs as you may be unsteady on your feet. ?? You may eat a regular diet as tolerated. ?? Do not smoke if you are alone. ?? IV site: Slight redness or tenderness is normal, you can use a warm compress if you would like. If tenderness and/or redness increase or if foul drainage occurs, please contact your Doctor. Please call [phone] before 8pm Mon-Fri with problems, questions or concerns. If you call after 8pm or on weekends, call the Hospital at [phone] and ask to speak to the Vp Account Director windows application administrator and the rubbing bed operator will contact that person for you. When should you call for help? Call [phone] anytime you think you may need emergency care. For example, call if: ?? You passed out (lost consciousness). ?? You pass maroon or bloody stools. ?? You have trouble breathing. Call your doctor now or seek immediate medical care if: ?? You have pain that does not get better after you take pain medicine. ?? You are sick to your stomach or cannot drink fluids. ?? You have new or worse belly pain. ?? You have blood in your stools. ?? You have a fever. ?? You cannot pass stools or gas. Watch closely for changes in your health, and be sure to contact your doctor if you have any problems. Where can you learn more? [facility] View your After Visit Summary and more online at [email or web address] If you would like to provide feedback about your hospital experience, please call the Office of Patient and Family Relations at . If you have received this After Visit Summary in error, please immediately return it in person to the department, or notify the [facility] Privacy Office by calling toll free at between the hours of 8AM and 5PM to arrange for our retrieval of the documents at no cost to you. Content Version: 12.2 ?? [id number] [employer]. Care instructions adapted under license by [facility]. If you have questions about a medical condition or this instruction, always ask your healthcare professional. [employer] disclaims any warranty or liability for your use of this information. documented in this encounter Medications at Time of Discharge Medication Sig Dispensed Refills Start Date End Date Blood Sugar Diagnostic (ONETOUCH ULTRA TEST) StripIndications:Typ [...] meter kit. 1 each 0 12/14/2014 Insulin [place], Disposable, (BD INSULIN PEN NEEDLE UF MINI) 31 x 3/16 NeedleIndications:Di abetes mellitus type 2, uncontrolled 1 Device by [facility].(Non-Drug; Combo Route) route 3 times daily as needed. 100 each 11 12/13/2014 glyBURIDE (Diabeta) 5 mg Tablet Take 5 mg by mouth daily. 02/14/2020 03/31/2022 HumuLIN N NPH Insulin KwikPen Insulin Pen Inject 20 Units subcutaneously daily. 11/12/2019 09/25/2022 OLANZapine (ZyPREXA) 5 mg Tablet Take 5 mg by mouth daily. 01/17/2020 03/31/2022 QUEtiapine (SEROquel) 50 mg Tablet Take 50 mg by mouth daily. 02/10/2020 04/30/2023 sertraline (Zoloft) 50 mg Tablet Take 50 mg by mouth daily. 02/14/2020 03/31/2022 pantoprazole EC (Protonix) 40 mg Tablet, Delayed Release (E.C.) Take 1 tablet by mouth 2 times daily. 180 tablet 3 11/13/2019 09/17/2020 esomeprazole (NEXIUM) 40 mg Capsule, Delayed Release(E.C.) Take 1 capsule by mouth 2 times daily. 180 capsule 3 02/24/2016 03/31/2022 ALPRAZolam (XANAX XR) 3 mg Tablet Sustained Release 24 hr Take 3 mg by mouth every morning. 03/31/2022 insulin glargine (LANTUS) Solution Inject 62 Units subcutaneously nightly. 03/31/2022 metFORMIN (GLUCOPHAGE) 1,000 mg TabletIndications:Di abetes mellitus type 2, uncontrolled Take 1 tablet by mouth 2 times daily (with meals). 180 tablet 3 12/13/2014 03/31/2022 albiglutide 30 mg/0.5 mL Pen InjectorIndications: Diabetes mellitus type 2, uncontrolled Inject 30 mg subcutaneously once a week. 4 each 11 12/13/2014 03/31/2022 insulin aspart (NOVOLOG FLEXPEN) Insulin PenIndications:Diabe riky mellitus type 2, uncontrolled Inject 10-20 Units subcutaneously 3 times daily (before meals). Refer to correction factor scale for dosing. 15 mL 11 12/13/2014 09/25/2022 lithium 300 mg Capsule Take 1,000 mg by mouth daily. 03/31/2022 PARoxetine (PAXIL) 40 mg Tablet Take 20 mg by mouth every morning. 03/31/2022 documented as of this encounter H&P Notes * Hilda Aguillon MD - 03/01/2020 8:06 AM EDT Patient Name: Jennifer Irving Patient Age: 59 y.o. Birthdate: 1960 Admit date: 03/01/2020 Attending Physician: David Dejesus MD PROBLEM LIST Patient Active Problem List Diagnosis Code ??? GERD (gastroesophageal reflux disease) K21.9 ??? Covington's esophagus K22.70 ??? T2DM (type 2 diabetes mellitus) E11.9 ??? BMI 37.0-37.9, adult Z68.37 HISTORY OF PRESENT ILLNESS Jennifer Irving is a 59 y.o. woman with PMHx of DM, Covington's esophagus who presents for EGD/colo for evaluation of Covington's as well as polyp surveillance. Denies any FH of colon cancer. Last EGD in November 2018, path covington's esophagus without dysplasia. MEDICATIONS No current facility-administered medications on file prior to encounter. Current Outpatient Medications on File Prior to Encounter Medication Sig Dispense Refill ??? HumuLIN N NPH Insulin KwikPen Insulin Pen Inject 20 Units subcutaneously daily. ??? OLANZapine (ZyPREXA) 5 mg Tablet Take 5 mg by mouth daily. ??? QUEtiapine (SEROquel) 50 mg Tablet Take 50 mg by mouth daily. ??? sertraline (Zoloft) 50 mg Tablet Take 50 mg by mouth daily. ??? pantoprazole EC (Protonix) 40 mg Tablet, Delayed Release (E.C.) Take 1 tablet by mouth 2 times daily. 180 tablet 3 ??? divalproex (DEPAKOTE) 500 mg Tablet, Delayed Release (E.C.) Take 500 mg by mouth 2 times daily. ??? esomeprazole (NEXIUM) 40 mg Capsule, Delayed Release(E.C.) Take 1 capsule by mouth 2 times daily. 180 capsule 3 ??? ALPRAZolam (XANAX XR) 3 mg Tablet Sustained Release 24 hr Take 3 mg by mouth every morning. ??? insulin glargine (LANTUS) Solution Inject 62 Units subcutaneously nightly. ??? metFORMIN (GLUCOPHAGE) 1,000 mg Tablet Take 1 tablet by mouth 2 times daily (with meals). 180 tablet 3 ??? albiglutide 30 mg/0.5 mL Pen Injector Inject 30 mg subcutaneously once a week. 4 each 11 ??? insulin aspart (NOVOLOG FLEXPEN) Insulin Pen Inject 10-20 Units subcutaneously 3 times daily (before meals). Refer to correction factor scale for dosing. 15 mL 11 ??? lithium 300 mg Capsule Take 1,000 mg by mouth daily. ??? PARoxetine (PAXIL) 40 mg Tablet Take 20 mg by mouth every morning. ??? glyBURIDE (Diabeta) 5 mg Tablet Take 5 mg by mouth daily. ??? Blood Sugar Diagnostic (VeedMe ULTRA TEST) Strip 1 each by Other [...] glucose meter kit. 1 each 0 ??? Insulin [place], Disposable, (BD INSULIN PEN NEEDLE UF MINI) 31 x 3/16 Needle 1 Device by [facility].(Non-Drug; Combo Route) route 3 times daily as needed. 100 each 11 PHYSICAL EXAM: Blood pressure 166/84, pulse 83, temperature 36.6 ??C (97.8 ??F), temperature source Temporal, resp. rate 16, height 154.9 cm (5' 1), weight 79.4 kg (175 lb), SpO2 98 %. GEN: Alert, cooperative. Pleasant. In NAD MP I ASA II HEENT: NCAT. Neck supple. LUNGS: Breathing comfortably on RA ABD: Soft, NT/ND RECENT LABS No results found for this or any previous visit (from the past 24 hour(s)). ASSESSMENT AND PLAN Jennifer Irving is a 59 y.o. y/o who presents for endoscopic evaluation. [...] 12/07/2023 1:00 PM EDT Appointment [place] [address] 12/07/2023 2:00 PM EDT Office [place] [address] Geronimo Mojica MD [facility] [place] [address] 12/27/2023 11:30 AM EDT Office [place] [id number] Noe Cuenca MD [facility] [place] [address] Scheduled Procedures Name Priority Associated Diagnoses Date/Ti me EGD, UPPER GI ENDOSCOPY (WRV U 2.09) Peptic stricture of esophagus documented as of this encounter Procedures Procedure Name Priority Date/Time Associated Diagnosis Comments SURGICAL PATHOLOGY REPORT Routine 03/01/2020 8:42 AM EDT SPECIMEN TO PATHOLOGY Routine 03/01/2020 8:42 AM EDT SPECIMEN TO PATHOLOGY Routine 03/01/2020 8:42 AM EDT SPECIMEN TO PATHOLOGY Routine 03/01/2020 8:42 AM EDT SPECIMEN TO PATHOLOGY Routine 03/01/2020 8:42 AM EDT Upper Gi Endoscopy, Biopsy (68881) 03/01/2020 8:36 AM EDT needs egd/colonoscopy for GERD and screening colo rojelio Colonoscopy, Diagnostic (91532) 03/01/2020 8:36 AM EDT needs egd/colonoscopy for GERD and screening colo rojelio Upper GI Endoscopy, Diagnostic (98062) 03/01/2020 8:36 AM EDT needs egd/colonoscopy for GERD and screening colo rojelio UPPER GI ENDOSCOPY Routine 03/01/2020 7: 47 AM EDT COLONOSCOPY Routine 03/01/2020 7:22 AM EDT documented in this encounter Results * Surgical Pathology Report (03/01/2020 8:42 AM EDT) FINAL DIAGNOSIS (AP) [id number] ? Location: 4T; EA06; A The signing pathologist has (i) examined the relevant preparation(s) for the specimen(s) and (ii) rendered or confirmed the diagnosis(es). . 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 B - Esophagus, 30 cm, biopsy: Covington's esophagus, negative for dysplasia. C - Esophagus, 32 cm, biopsy: Covington's esophagus, negative for dysplasia. D - Esophagus, 34 cm, biopsy: Covington's esophagus, negative for dysplasia. Electronically signed by: ??Jeniffer Hill MD Verified: ??03/10/2020 ?Pathologist Performed at: ??-[facility] Dept. of Pathology, [place], [place] SPECIMEN(S) SUBMITTED A - 28 cm, biopsy (Multiple) B - 30 cm, biopsy (Multiple) C - 32 cm, biopsy (1) D - 34 cm, biopsy (Multiple) CLINICAL INFORMATION History of Covington's SPECIMEN PROCESSING A - Labeled/Fixativ e: 28 cm, formalin. Quantity/Size: Two, 0.1 and 0.3 cm. Tissue Description: Soft, pink tissues. Sections/Proces sing: Submitted en toto ??in 1 cassette labeled A1. B - Labeled/Fixativ e: 30 cm, formalin. Quantity/Size: Three, averaging 0.3 cm. Tissue Description: Soft, pink tissues. Sections/Proces sing: Submitted en toto ??in 1 cassette labeled B1. C - Labeled/Fixativ e: 32 cm, formalin. Quantity/Size: Three, ranging from 0.1-0.3 cm. Tissue Description: Soft, pink-red tissues. Sections/Proces sing: Submitted en toto ??in 1 cassette labeled C1. D - Labeled/Fixativ e: 34 cm, formalin. Quantity/Size: Two, averaging 0.4 cm. Tissue Description: Soft, pink tissues. Sections/Proces sing: Submitted en toto ??in 1 cassette labeled D1. ??sns 03/10/2020 12:01 PM EST [facility] 03/01/2020 8:42 AM EDT David Dejesus MD PATHOLOGY/CYTOLOGY ORDERABLES [facility] [place] [address] * Specimen to Pathology (03/01/2020 8:42 AM EDT) AP Specimen 03/01/2020 8:42 AM EDT 03/01/2020 8:42 AM EDT Narrative [facility] - 03/01/2020 8:42 AM EDT Specimen requisition ordered. ??Separate Pathology report to follow David Dejesus MD PATHOLOGY/CYTOLOGY ORDERABLES Performing Organization Address [facility]/[place] [address] * Specimen to Pathology (03/01/2020 8:42 AM EDT) AP Specimen 03/01/2020 8:42 AM EDT 03/01/2020 8:42 AM EDT Narrative [facility] - 03/01/2020 8:42 AM EDT Specimen requisition ordered. ??Separate Pathology report to follow David Dejesus MD PATHOLOGY/CYTOLOGY ORDERABLES Performing Organization Address City/[facility]/ZIP Co de Phone Number [facility] [place] [address] * Specimen to Pathology (03/01/2020 8:42 AM EDT) AP Specimen 03/01/2020 8:42 AM EDT 03/01/2020 8:42 AM EDT Narrative [facility] - 03/01/2020 8:42 AM EDT Specimen requisition ordered. ??Separate Pathology report to follow David Dejesus MD PATHOLOGY/CYTOLOGY ORDERABLES Performing Organization Address City/[facility]/ZIP Co de Phone Number [facility] [place] [address] * Specimen to Pathology (03/01/2020 8:42 AM EDT) AP Specimen 03/01/2020 8:42 AM EDT 03/01/2020 8:42 AM EDT Narrative [facility] - 03/01/2020 8:42 AM EDT Specimen requisition ordered. ??Separate Pathology report to follow David Dejesus MD PATHOLOGY/CYTOLOGY ORDERABLES Performing Organization Address [facility] Co de Phone Number [facility] [place] [address] * UPPER GI ENDOSCOPY (03/01/2020 7:47 AM EDT) UPPER GI ENDOSCOPY [facility] Endoscopy Procedure Date: 03/01/2020 7:47 AM ? Patient Name: Jennifer Irving ? N: [id number] ? Date of : 1960 ? Age: 59 ? Order #: [id number] ? Instrument Name: [id number] ? Procedure: ? Upper GI endoscopy Indications: ? Follow-up of Covington's esophagus Providers: ? David Dejesus MD, Elizabeth Celis, ? RN, Eligio Sadler RN Referring : ?Ana Keith: ? Monitored Anesthesia Care Complications: [...] Mental Status Examination: ? alert and oriented. Respiratory ? Examination: clear to auscultation. ? [...] and ? adverse medication reactions. The ? Endoscope was introduced through the ? mouth, and advanced to the third part ? of duodenum. The patient tolerated ? the procedure well. The upper GI ? endoscopy was accomplished without ? difficulty. The patient tolerated the ? procedure well. ? Findings: ? The esophagus was normal until the distal esophagus ? where the patient's long segment Covington's was ? visualized. There were no masses or nodules under NBI ? or white light. Biopsies were taken in four quadrants ? at 28, 30, 32, 34. The length of Covington's was 28-34 ? cm. Thee was a hiatal hernia from 34-36 cm. ? The stomach was normal. ? The examined duodenum was normal. ? Moderate Sedation: ? Not applicable - See Anesthesia documentation Impression: ?- Long segments Covington's esophagus ? without worrisome features - biopsied Recommendation: ?- Await pathology results ? Attending Participation: ? I was present and participated during the entire ? procedure, including non-fam portions. ? ___ David Dejesus MD 03/01/2020 8:50:10 AM This report has been signed electronically. Number of Addenda: 0 Note Initiated On: 03/01/2020 7:47 AM [facility] 03/01/2020 7:47 AM EDT Ana Gillespie APRN GENERAL SURGICAL ORD ERABLES [facility] * COLONOSCOPY (03/01/2020 7:22 AM EDT) COLONOSCOPY [facility] Endoscopy Procedure Date: 03/01/2020 7:22 AM ? Patient Name: Jennifer Irving ? Date of : 1960 ? Age: 59 ? Order #: [id number] ? Instrument Name: [id number] ? Procedure: ? Colonoscopy Indications: ? Screening for colorectal malignant ? neoplasm Providers: ? David Dejesus MD, Elizabeth Celis, ? RN, Eligio Sadler RN Referring : ?Ana Keith: ? Monitored Anesthesia Care Complications: [...] Gillespie APRN GENERAL SURGICAL ORD ERABLES [facility] documented in this encounter Visit Diagnoses Not on filedocumented in this encounter Administered Medications Inactive Administered Medications - up to 3 most recent administrations Medication Order MAR Action Action Date Dose Rate Site lactated ringers infusion 100 mL/hr, Intravenous, CONTINUOUS, Starting on Wed03/01/20 at 0730, Until Wed03/01/20 at 1013, Endoscopy (Day of Procedure) New Bag 03/01/2020 7:35 AM EDT 100 mL/hr 100 mL/hr documented in this encounter Active and Recently Administered Medications Times are shown in EDT. Continuous Medication Order 02/28/2020 02/29/2020 03/01/2020 lactated ringers infusion (CANCELED) 100 mL/hr, Intravenous, CONTINUOUS, Starting on Wed03/01/20 at 0730, Until Wed03/01/20 at 1013, Endoscopy (Day of Procedure) 0735 (New Bag - Prov ider: Caitlyn Courtney RN)0832 (Canceled Entry - Provider: Chiquita Felix CRNA)0919 (Anesthesia Volume Adjustment - Provider: Chiquita Felix CRNA) documented in this encounter Care Teams Wire Machine Cutter Relationship Specialty Start Date End Date Ana Gillespie APRN [address] [place] [address] PCP - General Family Medicine 02/03/19 documented as of this encounter
--- OUTSIDE RECORDS SUMMARY | 2023-12-03 14:59 | XMS_ITS | Encounter Summary ---
Author Organization [facility] Address [facility] [place] [address] Care Team Providers Care Surgical Endoscopist Name Role Phone Ana Gillespie VAUGHN Primary Care Provider Reason for Referral * Consultation (Routine) - Closed Specialty Diagnoses / Procedures Referred By Esperanza rodríguez Referred To Contact Neurology Diagnoses Primary parkinsonism David Dejesus MD [facility] [place] [address] [facility] [address] [place] [address] Referral ID Status Reason Start Date Expiration Date V isits Requested Visits Authorized [id number] Closed Consult, Test & Treat 09/23/2021 09/23/2022 1 1 Encounter Details Date Type Department Care Team (Late st Contact Info) Description 09/23/2021 Orders [place] [address] David Dejesus MD [facility] [place] [address] Primary parkinsonism Social History Tobacco Use Types [...] 12/07/2023 1:00 PM EDT Appointment [place] [phone] 12/07/2023 2:00 PM EDT Office [place] [address] Geronimo Mojica MD [facility] DR THORACIC SURGERY [place], [place] [id number] 12/27/2023 11:30 AM EDT Office [place] [address] Noe Cuenca MD [facility] [place] [address] Scheduled Procedures Name Priority Associated Diagnoses Date/Ti me EGD, UPPER GI ENDOSCOPY (WRV U 2.09) Peptic stricture of esophagus Scheduled Referrals Name Type Priority Associated Diagnoses Orde r Schedule Referral to Neurology Outpatient Referral Routine Primary Parkinsonism Ordered: 09/23/2021 documented as of this encounter Visit Diagnoses Diagnosis Primary parkinsonism Paralysis agitans documented in this encounter Care Teams Surgical Endoscopist Relationship Specialty Start Date End Date Ana Gillespie APRN [address] [place] [address] PCP - General Family Medicine 02/03/19 documented as of this encounter
--- OUTSIDE RECORDS SUMMARY | 2023-12-03 14:59 | XMS_ITS | Encounter Summary ---
Author Organization [facility] [place] [address] Care Team Providers Care Pearl Peller Name Role Phone Ana Gillespie VAUGHN Primary Care Provider [phone] Encounter Details Date Type Department Care Team (Late Contact Info) Description 12/28/2019 Telephone [place] [address] Rober Tobin Social History Tobacco Use Types Packs/Day Years Used Date Smoking Tobacco: Every Day Cigarettes 0.5 11 Smokeless Tobacco: Never Alcohol Use Standard Drinks/Week Comments Yes 0 (1 standard drink = 0.6 oz pur e alcohol) a couple times a month Sex and Gender Information Value Date Recorded Sex Assigned at Not on file Gender Identity Not on file Sexual Orientation Not on file documented as of this encounter Miscellaneous Notes * Telephone Encounter - Rober Tobin - 12/28/2019 1:47 PM EDT Lm for patient to call back to schedule procedure from recent PJ referral. documented in this encounter Plan of Treatment Upcoming Encounters Date Type Department Care Team (Late st Contact Info) Description 12/07/2023 1:00 PM EDT [place] [address] 12/07/2023 2:00 PM EDT Office [place] [address] Geronimo Mojica MD [facility] DR THORACIC SURGERY [place], [place] [id number] 12/27/2023 11:30 AM EDT [place] [address] Noe Cuenca MD [facility] [place] [address] Scheduled Procedures Name Priority Associated Diagnoses Date/Ti me EGD, UPPER GI ENDOSCOPY (WRV U 2.09) Peptic stricture of esophagus documented as of this encounter Visit Diagnoses Not on filedocumented in this encounter Care Teams Pearl Peller Relationship Specialty Start Date End Date Ana Gillespie APRN [address] [place] [address] PCP - General Family Medicine 02/03/19 documented as of this encounter
--- OUTSIDE RECORDS SUMMARY | 2023-12-03 14:59 | XMS_ITS | Encounter Summary ---
Author Organization [facility] [place] [address] Care Team Providers Care Dot Net Architect Name Role Phone Ana Gillespie APRN Primary Care Provider [phone] Reason for Visit * Reason Onset Date Comments Medication Refill 09/17/2020 Encounter Details Date Type Department Care Team (Late Contact Info) Description 09/17/2020 Refill [place] [phone] David Dejesus MD [facility] [place] [address] Social History Tobacco Use Types Packs/Day Years [...] 12/07/2023 1:00 PM EDT Appointment [place] [phone] 12/07/2023 2:00 PM EDT Office [place] [phone] Geronimo Mojica MD [facility] [place] [address] 12/27/2023 11:30 AM EDT Office [place] [address] Noe Cuenca MD [facility] [place] [address] Scheduled Procedures Name Priority Associated Diagnoses Date/Ti me EGD, UPPER GI ENDOSCOPY (WRV U 2.09) Peptic stricture of esophagus documented as of this encounter Visit Diagnoses Not on filedocumented in this encounter Care Teams Dot Net Architect Relationship Specialty Start Date End Date Ana Gillespie APRN [address] [place] [address] PCP - General Family Medicine 02/03/19 documented as of this encounter
--- OUTSIDE RECORDS SUMMARY | 2023-12-03 14:59 | XMS_ITS | Encounter Summary ---
Author Organization [facility] Address [facility] [place] [address] Care Team Providers Care Cable Tool Operator Name Role Phone Ana Gillespie VAUGHN Primary Care Provider [phone] Reason for Visit * Auth/Cert Specialty Diagnoses / Procedures Referred By Esperanza rodríguez Referred To Contact Diagnoses esophagitis - please schedule in mid August Procedures PRO UPPER GI ENDOSCOPY, DIAGNOSTIC EGD, UPPER GI ENDOSCOPY Referral ID Status Reason Start Date Expiration Date Visits Re quested Visits Authorized [id number] 1 1 Encounter Details Date Type Department Care Team (Latest Contact Info) Description 09/09/2021 1:21 PM EDT - 09/09/2021 9:08 PM EDT Hospital En[place] [address] David Dejesus MD [facility] [place] [address] Discharge Disposition: Home Social History Tobacco Use [...] meter kit. 1 each 0 12/14/2014 Insulin [place], Disposable, (BD INSULIN PEN NEEDLE UF MINI) 31 x 3/16 NeedleIndications:Di abetes mellitus type 2, uncontrolled 1 Device by [facility].(Non-Drug; Combo Route) route 3 times daily as needed. 100 each 11 12/13/2014 sucralfate (Carafate) 1 gram Tablet Take 1 tablet by mouth 4 times daily. 360 tablet 3 08/04/2021 10/22/2022 pantoprazole EC (Protonix) 40 mg Tablet, Delayed Release (E.C.)Indications:Ga stroesophageal reflux disease with esophagitis without hemorrhage Take 1 tablet by mouth 2 times daily. 180 tablet 3 07/15/2021 10/20/2021 glyBURIDE (Diabeta) 5 mg Tablet Take 5 [...] 50 mg by mouth daily. 02/14/2020 03/31/2022 esomeprazole (NEXIUM) 40 mg Capsule, Delayed Release(E.C.) [...] morning. 03/31/2022 documented as of this encounter Plan of Treatment Upcoming Encounters Date Type Department Care Team (Late st Contact Info) Description 12/07/2023 1:00 PM EDT [place]oint[place] [address] 12/07/2023 2:00 PM EDT Office [place] [address] Geronimo Mojica MD [facility] [place] [address] 12/27/2023 11:30 AM EDT Office [place] [address] Noe Cuenca MD [facility] [place] [address] Scheduled Procedures Name Priority Associated Diagnoses Date/Ti me EGD, UPPER GI ENDOSCOPY (WRV U 2.09) Peptic stricture of esophagus documented as of this encounter Visit Diagnoses Not on filedocumented in this encounter Care Teams Cable Tool Operator Relationship Specialty Start Date End Date Ana Gillespie APRN [address] [place] [address] PCP - General Family Medicine 02/03/19 documented as of this encounter
--- OUTSIDE RECORDS SUMMARY | 2023-12-03 14:59 | XMS_ITS | Encounter Summary ---
Author Organization [facility] [place] [address] Care Team Providers Care Supervisor Cereal Name Role Phone Ana Gillespie VAUGHN Primary Care Provider [phone] Reason for Visit * Reason Onset Date Comments Appointment 11/28/2020 Encounter Details Date Type Department Care Team (Late st Contact Info) Description 11/28/2020 Tele[place] [address] Evelin Novak I Appointment Social History Tobacco Use Types Packs/Day Years [...] encounter Miscellaneous Notes * Telephone Encounter - Evelin Felipe I - 11/28/2020 9:29 AM EDT Unable to contact patient to schedule from referral. Letter sent and referral closed documented in this encounter Plan of Treatment Upcoming Encounters Date Type Department Care Team (Late st Contact Info) Description 12/07/2023 1:00 PM EDT [place] [address] 12/07/2023 2:00 PM EDT Office [place] [address] Geronimo Mojica MD [facility] DR [place] [address] 12/27/2023 11:30 AM EDT [place] [address] Noe Cuenca MD [facility] DR [place] [address] Scheduled Procedures Name Priority Associated Diagnoses Date/Ti me EGD, UPPER GI ENDOSCOPY (WRV U 2.09) Peptic stricture of esophagus documented as of this encounter Visit Diagnoses Not on filedocumented in this encounter Care Teams Supervisor Cereal Relationship Specialty Start Date End Date Ana Gillespie APRN [address] [place] [address] PCP - General Family Medicine 02/03/19 documented as of this encounter
--- OUTSIDE RECORDS SUMMARY | 2023-12-03 14:59 | XMS_ITS | Encounter Summary ---
Author Organization [facility] [place] [address] Care Team Providers Care Obstetrics Technician Name Role Phone Ana Gillespie ORTHOTIC/PROSTHETIC CLINICIAN Primary Care Provider [phone] Encounter Details Date Type Department Care Team (Late st Contact Info) Description 07/14/2021 Telephone [place] [address] Chiquita James, RN Social History [...] Telephone Encounter - Chiquita James, RN - 07/14/2021 2:51 PM EST Spoke with Annalee on the phone, she would aaron to make sure Dr Dejesus knows that she is out of sucralfate. She is having an EGD on 09/16. documented in this encounter Plan of Treatment Upcoming Encounters Date Type Department Care Team (Late st Contact Info) Description 12/07/2023 1:00 PM EDT Appointment [place] [address] 12/07/2023 2:00 PM EDT Office [place] [address] Geronimo Mojica MD [facility] [place] [address] 12/27/2023 11:30 AM EDT Office [place] [phone] Noe Cuenca MD [facility] [place] [address] Scheduled Procedures Name Priority Associated Diagnoses Date/Ti me EGD, UPPER GI ENDOSCOPY (WRV U 2.09) Peptic stricture of esophagus documented as of this encounter Visit Diagnoses Not on filedocumented in this encounter Care Teams Obstetrics Technician Relationship Specialty Start Date End Date Ana Gillespie APRN [address] [place] [address] PCP - General Family Medicine 02/03/19 documented as of this encounter
--- OUTSIDE RECORDS SUMMARY | 2023-12-03 14:59 | XMS_ITS | Encounter Summary ---
Author Organization [facility] [place] [address] Care Team Providers Care Merchandise For Resale Purchasing Agent Name Role Phone Ana Gillespie APRN Primary Care Provider [phone] Encounter Details Date Type Department Care Team (Late st Contact Info) Description 09/23/2021 12:02 PM EDT Anesthesia [place] [address] Keyana Short MD [facility] [place] [address] Kyaw Yusuf CRNA [facility] [place] [address] Anesthesia Record Procedure Summary Procedure Name Responsible Anesthesiologist Anesthesia Start Time Anesthesia Stop Time EGD WITH BIOPSY (WRVU 2.39) (Trunk) Keyana Short MD 09/23/21 1202 09/23/21 1224 Events Date Time Event Comment 09/23/2021 1145 1202 AN Verify 1202 Start 1202 An Start Data 1206 An Induction 1206 Anesthesia Ready 1224 an stop data 1224 Recovery or ICU Handoff Sayra ent care was transferred to the destination unit staff after review of the patient's medical history, current anesthetic/surgical status and plan, according to the Provider Handoff Checklist. 1224 Stop Meds Name Total IV Lidocaine 60 mg Propofol 100 mg Propofol INF 200.18 mg Lactated Ringers 700 mL * Agents Name O2 Air N2O O2 Auxiliary Flowmeter 1 * Blood No blood administrations on file. Lines, Drains, and Airways Type Details Placement Removal (RETIRED) Peripheral IV Line - Single Lumen 09/23/21; 1131; median cubital vein (antecubital fossa), right; [id number] catheter system; 20 gauge; Lilliana HWANG; tolerated well; 09/23/21; 1319 09/23/21 1131 by Parris Quinn RN 09/23/21 1319 by Lucia Agustin RN documented in this encounter Social History [...] OR Notes * Anesthesia Postprocedure Evaluation - Keyana Short MD - 09/23/2021 2:21 PM EDT Department of Anesthesiology Post-procedure Note Patient: Jennifer Irving Procedure Summary Date: 09/23/21 Room / Location: [facility] ENDO 2 / [facility] ENDOSCOPY Anesthesia Start: 1202 Anesthesia Stop: 1224 Procedure: EGD WITH BIOPSY (WRVU 2.49) (N/A Trunk) Diagnosis: Gastroesophageal reflux disease with esophagitis without hemorrhage (esophagitis - please schedule in mid August) Surgeons: David Dejesus MD Responsible Provider: Keyana Short MD Anesthesia Type: MAC ASA Status: 3 All Anesthesia Providers: Anesthesiologist: Keyana Short MD ENVIRONMENTAL LAW PROFESSOR: Kyaw Yusuf CRNA Vitals Value Taken Time BP 139/82 09/23/21 1310 Temp Pulse Resp 18 09/23/21 1310 SpO2 100 % 09/23/21 1315 Pain Level 0 09/23/21 1310 Vitals shown include unvalidated device data. Patient Location: PACU/[facility] Level of Consciousness: Awake and Alert Pain Management: Satisfactory Analgesia PONV: None Cardiovascular Status: At Baseline and Hemodynamically Stable Respiratory Status: At Baseline and Room Air Postoperative Fluid Status: Intravascular EUvolemia Possible Anesthetic Complications: NONE apparent at time of evaluation Final Primary Anesthesia Type: MAC (The anesthetic type performed was the same as planned.) Comments: KEYANA SHORT MD * Anesthesia Preprocedure Evaluation - Keyana Short MD - 09/23/2021 11:44 AM EDT Pre-Anesthesia Evaluation for: Jennifer Irving a 61 y.o. female. Procedure(s): EGD, UPPER GI ENDOSCOPY Patient Active Problem List Diagnosis Date Noted ??? BMI 37.0-37.9, adult 12/13/2014 ??? T2DM (type 2 diabetes mellitus) 12/12/2014 ??? GERD (gastroesophageal reflux disease) 03/15/2013 ??? Farrell's esophagus 03/15/2013 No past medical history on file. Past Surgical History: Procedure Laterality Date ??? [...] OR MULTIPLE performed by David Dejesus MDat [facility] ENDOSCOPY ??? PRO UPPER [...] Dejesus MD at [facility] ENDOSCOPY Social History Tobacco Use ??? Smoking status: Former Smoker Years: 11.00 Quit date: 02/26/2021 Years since quittin.5 ??? Smokeless tobacco: Never Used Substance Use Topics ??? Alcohol use: Not [...] year old female for EGD NPO IDDM Farrell's GERD Smoker No problems with previous anesthesia Region - Other Plan propofol sedation Region - Other Informed Consent: Anesthetic plan and risks discussed with patient. Plan discussed with ENVIRONMENTAL LAW PROFESSOR. Anesthesia Screening documented in this encounter Plan of Treatment Upcoming Encounters Date Type Department Care Team (Late st Contact Info) Description 12/07/2023 1:00 PM EDT Appointment [place] [address] 12/07/2023 2:00 PM EDT Office [place] [address] Geronimo Mojica MD [facility] [place] [address] 12/27/2023 11:30 AM EDT Office Visit Pulmonology at [facility] [place] [address] Noe Cuenca MD [facility] [place] [address] Scheduled Procedures Name Priority Associated Diagnoses Date/Ti me EGD, UPPER GI ENDOSCOPY (WRV U 2.09) Peptic stricture of esophagus documented as of this encounter Visit Diagnoses Not on filedocumented in this encounter Administered Medications Inactive Administered Medications - up to 3 most recent administrations Medication Order MAR Action Action Date Dose Rate Site lactated ringers infusion Intravenous, CONTINUOUS PRN, Starting on 09/23/21 at 1202, Until 09/23/21 at 1224, Anesthesia Intra-op New Bag 09/23/2021 12:02 PM EDT lidocaine (pf) (Xylocaine) (20 mg/mL) 2% injection syringe Intravenous, PRN, Starting on 09/23/21 at 1206, Until 09/23/21 at 1224, Anesthesia Intra-op, Routine Given 09/23/2021 12:06 PM EDT 60 mg propofoL (Diprivan) (10 mg/mL) infusion Intravenous, CONTINUOUS PRN, Starting on 09/23/21 at 1206, Until 09/23/21 at 1224, Anesthesia Intra-op, Routine New Bag 09/23/2021 12:06 PM EDT 150 mcg/kg/min 70.65 mL/hr propofoL (Diprivan) 10 mg/mL bolus injection (Anesthesia) Intravenous, PRN, Starting on 09/23/21 at 1206, Until 09/23/21 at 1224, Anesthesia Intra-op Given 09/23/2021 12:06 PM EDT 100 mg documented in this encounter Care Teams Merchandise For Resale Purchasing Agent Relationship Specialty Start Date End Date Ana Gillespie APRN [address] [place] [address] PCP - General Family Medicine 02/03/19 documented as of this encounter
--- OUTSIDE RECORDS SUMMARY | 2023-12-03 14:59 | XMS_ITS | Encounter Summary ---
Author Organization [facility] [place] [address] Care Team Providers Care Alligator Trapper Name Role Phone Ana Gillespie VAUGHN Primary Care Provider [phone] Encounter Details Date Type Department Care Team (Late st Contact Info) Description 07/07/2021 Telephone [place] [address] Ting Patton Social History Tobacco Use Types [...] * Telephone Encounter - Ting Patton - 07/07/2021 3:32 PM EST Patient called to schedule EGD/ Patient wanted mid morning arrival- didn't have anything in August for that so she asked to schedulein september. Did not want to be put on cancellation list for earlier time/date documented in this encounter Plan of Treatment Upcoming Encounters Date Type Department Care Team (Late st Contact Info) Description 12/07/2023 1:00 PM EDT Appointment [place] [address] 12/07/2023 2:00 PM EDT Office [place] [address] Geronimo Mojica MD [facility] [place] [address] 12/27/2023 11:30 AM EDT [place] [address] Noe Cuenca MD [facility] [place] [address] Scheduled Procedures Name Priority Associated Diagnoses Date/Ti me EGD, UPPER GI ENDOSCOPY (WRV U 2.09) Peptic stricture of esophagus documented as of this encounter Visit Diagnoses Not on filedocumented in this encounter Care Teams Alligator Trapper Relationship Specialty Start Date End Date Ana Gillespie APRN [address] [place] [address] PCP - General Family Medicine 02/03/19 documented as of this encounter
--- OUTSIDE RECORDS SUMMARY | 2023-12-03 14:59 | XMS_ITS | Encounter Summary ---
Author Organization [facility] Address [facility] [place] [address] Care Team Providers Care Fitness Management Director Name Role Phone Ana Gillespie VAUGHN Primary Care Provider [phone] Reason for Referral * Consultation (PJ) - Closed Specialty Diagnoses / Procedures Referred By Contac t Referred To Contact Gastroenterology Diagnoses Iron deficiency anemia due to chronic blood loss Procedures needs egd/colonoscopy for GERD and screening colo pj David Dejesus MD [facility] [place] [address] [facility] Endoscopy [address] [place] [address] Referral ID Status Reason Start Date Expiration Date V isits Requested Visits Authorized [id number] Closed Consult, Test & Treat 12/25/2019 12/24/2020 1 1 Encounter Details Date Type Department Care Team (Late st Contact Info) Description 12/25/2019 Orders [place] [address] David Dejesus MD [facility] [place] [address] Iron deficiency anemia due to chronic blood loss Social History Tobacco Use Types Packs/Day Years [...] 12/07/2023 1:00 PM EDT [place] [address] 12/07/2023 2:00 PM EDT Office [place] [address] Geronimo Mojica MD [facility] [place] [address] 12/27/2023 11:30 AM EDT [place] [address] Noe Cuenca MD [facility] [place] [address] Scheduled Procedures Name Priority Associated Diagnoses Date/Ti me EGD, UPPER GI ENDOSCOPY (WRV U 2.09) Peptic stricture of esophagus Scheduled Referrals Name Type Priority Associated Diagnoses Order Schedule Referral to Gastroenterology Outpatient Referral Routine Iron deficiency anemia due to chronic blood loss Ordered: 12/25/2019 documented as of this encounter Visit Diagnoses Diagnosis Iron deficiency anemia due to chronic blood loss Iron deficiency anemia secondary to blood loss (chronic) documented in this encounter Care Teams Fitness Management Director Relationship Specialty Start Date End Date Ana Gillespie APRN [address] [place] [address] PCP - General Family Medicine 02/03/19 documented as of this encounter
--- OUTSIDE RECORDS SUMMARY | 2023-12-03 14:59 | XMS_ITS | Encounter Summary ---
Author Organization [facility] Address [facility] [place] [address] Care Team Providers Care Trim Die Maker Name Role Phone Ana Gillespie APRN Primary Care Provider [phone] Encounter Details Date Type Department Care Team (Late st Contact Info) Description 01/27/2022 11:59 PM EDT Anesthesia Event [place] [phone] Violet Miguel MD [facility] [place] [address] Anesthesia Record Procedure Summary Procedure Name Responsible Anesthesiologist Anesthesia Start Time Anesthesia Stop Time EGD, UPPER GI ENDOSCOPY (WRVU 2.09) (Trunk) Events No events on file. Meds * Agents No agents on file. * [...] of this encounter OR Notes * Anesthesia Preprocedure Evaluation - Violet Miguel MD - 01/26/2022 2:46 PM EDT Pre-Anesthesia Evaluation for: Jennifer Irving a 61 y.o. female. Procedure(s): EGD, UPPER GI ENDOSCOPY Patient Active Problem List Diagnosis Date Noted ??? BMI 37.0-37.9, adult 12/13/2014 ??? T2DM (type 2 diabetes mellitus) 12/12/2014 ??? GERD (gastroesophageal reflux disease) 03/15/2013 ??? Covington's esophagus 03/15/2013 No past medical history on file. Past Surgical History: Procedure Laterality Date ??? PRO COLONOSCOPY, BIOPSY N/A 03/20/2016 COLONOSCOPY FLEXIBLE, WITH BX performed by David Dejesus MD at [facility] ??? PRO COLONOSCOPY, DIAGNOSTIC N/A 03/01/2020 COLONOSCOPY, DIAGNOSTIC performed by David Dejesus MD at [facility] ??? PRO UPPER GI ENDOSCOPY, BIOPSY N/A 04/03/2014 UPPER GASTROINTESTINAL ENDOSCOPY,WITH BIOPSY SINGLE OR MULTIPLE performed by David Dejesus MDat [facility] ??? PRO UPPER GI ENDOSCOPY, BIOPSY N/A 03/20/2016 EGD WITH BIOPSY performed by David Dejesus MD at [facility] ??? PRO UPPER GI ENDOSCOPY, BIOPSY N/A 11/22/2018 EGD WITH BIOPSY (WRVU 2.49) performed by David Dejesus MD at [facility] ??? PRO UPPER GI ENDOSCOPY, BIOPSY N/A 03/01/2020 UPPER GASTROINTESTINAL ENDOSCOPY,WITH BIOPSY SINGLE OR MULTIPLE (WRVU 2.49) performed by David Dejesus MD at [facility] ??? PRO UPPER GI ENDOSCOPY, BIOPSY N/A 09/23/2021 EGD WITH BIOPSY (WRVU 2.49) performed by David Dejesus MD at [facility] ??? PRO UPPER GI ENDOSCOPY, DIAGNOSTIC N/A 04/03/2014 EGD, UPPER GI ENDOSCOPY performed by David Dejesus MD at [facility] ??? PRO UPPER GI ENDOSCOPY, DIAGNOSTIC N/A 03/01/2020 EGD, UPPER GI ENDOSCOPY performed by David Dejesus MD at [facility] Social History Tobacco Use ??? Smoking status: Former Smoker Years: 11.00 Quit date: 02/26/2021 Years since quittin.9 ??? Smokeless tobacco: Never Used Substance Use [...] 5 years - MAC without issue Plan MAC Violet Miguel MD 01/26/2022 Library Science Instructor Pager #[phone] Informed Consent: Anesthesia Screening documented in this encounter Plan of Treatment Upcoming Encounters Date Type Department Care Team (Late st Contact Info) Description 12/07/2023 1:00 PM EDT Appointment [place] [address] 12/07/2023 2:00 PM EDT Office Visit [place] [phone] Geronimo Mojica MD [facility] [place] [address] 12/27/2023 11:30 AM EDT Office [place] [phone] Noe Cuenca MD [facility] [place] [address] Scheduled Procedures Name Priority Associated Diagnoses Date/Ti me EGD, UPPER GI ENDOSCOPY (WRV U 2.09) Peptic stricture of esophagus documented as of this encounter Visit Diagnoses Not on filedocumented in this encounter Care Teams Trim Die Maker Relationship Specialty Start Date End Date Ana Gillespie APRN [address] [place] [address] PCP - General Family Medicine 02/03/19 documented as of this encounter
--- OUTSIDE RECORDS SUMMARY | 2023-12-03 14:59 | XMS_ITS | Encounter Summary ---
[place] [address] Care Team Providers Care General Merchandise Manager Name Role Phone Ana Gillespie VAUGHN Primary Care Provider [phone] Encounter Details Date Type Department Care Team (Late st Contact Info) Description 09/10/2021 Telephone [place] [address] Chiquita James, RN Social History [...] Telephone Encounter - Chiquita James, RN - 09/10/2021 8:51 AM EDT Incoming voice message from Jennifer Gasca's regarding EGD. [facility] states they were not able to stay for Jennifer's EGD yesterday as he got sick, they would like to reschedule. Forwarded to endo scheduling documented in this encounter Plan of Treatment Upcoming Encounters Date Type Department Care Team (Late st Contact Info) Description 12/07/2023 1:00 PM EDT Appointment [place] [address] 12/07/2023 2:00 PM EDT Office Visit [place] [address] [facility] [place] [address] 12/27/2023 11:30 AM EDT Office [place] [phone] [facility] [place] [address] Scheduled Procedures Name Priority Associated Diagnoses Date/Ti me EGD, UPPER GI ENDOSCOPY (WRV U 2.09) Peptic stricture of esophagus documented as of this encounter Visit Diagnoses Not on filedocumented in this encounter Care Teams General Merchandise Manager Relationship Specialty Start Date End Date Ana Gillespie APRN [address] [place] [address] PCP - General Family Medicine 02/03/19 documented as of this encounter
--- OUTSIDE RECORDS SUMMARY | 2023-12-03 14:59 | XMS_ITS | Encounter Summary ---
Author Organization [facility] [place] [address] Care Team Providers Care Metal Machine Setter Name Role Phone Ana Gillespie APRN Primary Care Provider [phone] Encounter Details Date Type Department Care Team (Late st Contact Info) Description 11/27/2021 Telephone Gastroenterology at [place] [phone] Alla Mejia Social History Tobacco Use Types [...] 12/07/2023 1:00 PM EDT Appointment Pulmonology at [place] [phone] 12/07/2023 2:00 PM EDT Office Visit [place] [phone] Geronimo Mojica MD [facility] [place] [address] 12/27/2023 11:30 AM EDT Office [place] [phone] Noe Cuenca MD [facility] DR PULMONARY MEDICINE [place], [place] [address] Scheduled Procedures Name Priority Associated Diagnoses Date/Ti me EGD, UPPER GI ENDOSCOPY (WRV U 2.09) Peptic stricture of esophagus documented as of this encounter Visit Diagnoses Not on filedocumented in this encounter Care Teams Metal Machine Setter Relationship Specialty Start Date End Date Ana Gillespie APRN [address] [place] [address] PCP - General Family Medicine 02/03/19 documented as of this encounter
--- OUTSIDE RECORDS SUMMARY | 2023-12-03 14:59 | XMS_ITS | Encounter Summary ---
Author Organization [facility] Address [facility] [place] [address] Care Team Providers Care Chyron Operator Name Role Phone Ana Gillespie APRN Primary Care Provider [phone] Encounter Details Date Type Department Care Team (Late Contact Info) Description 08/04/2021 Orders [place] [phone] David Dejesus MD [facility] DR GASTROENTEROLOGY [place], [place] [phone] Social History Tobacco Use Types Packs/Day Years [...] 12/07/2023 1:00 PM EDT Appoint[place] [phone] 12/07/2023 2:00 PM EDT Office [place] [address] Geronimo Mojica MD [facility] [address] THORACIC SURGERY [place], [place] [phone] 12/27/2023 11:30 AM EDT [place] [address] Noe Cuenca MD [facility] [place] [address] Scheduled Procedures Name Priority Associated Diagnoses Date/Ti me EGD, UPPER GI ENDOSCOPY (WRV U 2.09) Peptic stricture of esophagus documented as of this encounter Visit Diagnoses Not on filedocumented in this encounter Care Teams Chyron Operator Relationship Specialty Start Date End Date Ana Gillespie APRN [address] [place] [address] PCP - General Family Medicine 02/03/19 documented as of this encounter
--- OUTSIDE RECORDS SUMMARY | 2023-12-03 14:59 | XMS_ITS | Encounter Summary ---
Author Organization [facility] [place] [address] Care Team Providers Care Microwave Engineer Name Role Phone Ana Gillespie VAUGHN Primary Care Provider [phone] Encounter Details Date Type Department Care Team (Late st Contact Info) Description 09/12/2021 Telephone [place] [address] Chiquita James, RN Social History [...] Telephone Encounter - Chiquita James, RN - 09/12/2021 1:18 PM EDT Incoming voice message from Jennifer requesting a letter from Dr Dejesus. 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 She needs this to be sent to the [place] [facility] [employer] for medical issue. Forwarded for review documented in this encounter Plan of Treatment Upcoming Encounters Date Type Department Care Team (Late st Contact Info) Description 12/07/2023 1:00 PM EDT Appointment [place] [phone] 12/07/2023 2:00 PM EDT Office [place] [phone] Geronimo Mojica MD [facility] [place] [address] 12/27/2023 11:30 AM EDT Office [place] [address] Noe Cuenca MD [facility] [place] [address] Scheduled Procedures Name Priority Associated Diagnoses Date/Ti me EGD, UPPER GI ENDOSCOPY (WRV U 2.09) Peptic stricture of esophagus documented as of this encounter Visit Diagnoses Not on filedocumented in this encounter Care Teams Microwave Engineer Relationship Specialty Start Date End Date Ana Gillespie APRN [address] [place] [address] PCP - General Family Medicine 02/03/19 documented as of this encounter
--- OUTSIDE RECORDS SUMMARY | 2023-12-03 14:59 | XMS_ITS | Encounter Summary ---
Author Organization [facility] Address [facility] [place] [address] Care Team Providers Care Practice Managers Name Role Phone Ana Gillespie APRN Primary Care Provider [phone] Encounter Details Date Type Department Care Team (Late st Contact Info) Description 03/01/2020 8:32 AM EDT Anesthesia [place] [phone] Ute Novak MD [facility] DR [place] [address] Anesthesia Record Procedure Summary Procedure Name Responsible Anesthesiologist Anesthesia Start Time Anesthesia Stop Time EGD, UPPER GI ENDOSCOPY (WRVU 2.09) (Trunk) Ute Novak MD 03/01/20 0832 03/01/20 0924 Events Date Time Event Comment 03/01/2020 0754 0832 AN Verify 0832 Start 0832 An Start Data 0836 An Induction 0838 Anesthesia Ready 0922 an stop data 0924 Recovery or ICU Handoff Sayra ent care was transferred to the destination unit staff after review of the patient's medical history, current anesthetic/surgical status and plan, according to the Provider Handoff Checklist. 0924 Stop Meds Name Total IV Lidocaine 80 mg Propofol 100 mg Propofol INF 393.03 mg lactated ringers infusion 450 mL * Agents Name O2 Air N2O O2 Auxiliary Flowmeter 1 * Blood No blood administrations on file. Lines, Drains, and Airways Type Details Placement Removal (RETIRED) Peripheral IV Line - Single Lumen 03/01/20; 0723; metacarpal vein (top of hand), right; blav-ray-wzyidh catheter system; 20 gauge; gaurav rn; distraction, tolerated well, appears comfortable; 0; 03/01/20; 1012 03/01/20 0723 by Gaurav Courtney RN 03/01/20 1012 by Jennifer Hammond RN documented in this encounter Social History [...] OR Notes * Anesthesia Postprocedure Evaluation - Ute Novak MD - 03/01/2020 10:21 AM EDT Department of Anesthesiology Post-procedure Note Patient: Jennifer Irving Procedure Summary Date: 03/01/20 Room / Location: [facility] 2 / [facility] Anesthesia Start: 831 Anesthesia Stop: 923 Procedures: EGD, UPPER GI ENDOSCOPY (N/A Trunk) COLONOSCOPY, DIAGNOSTIC (N/A Trunk) UPPER GASTROINTESTINAL ENDOSCOPY,WITH BIOPSY SINGLE OR MULTIPLE (WRVU 2.49) (N/A Esophagus) Diagnosis: (needs egd/colonoscopy for GERD and screening colo rojelio) Surgeon: David Dejesus MD Responsible Provider: Ute Novak MD Anesthesia Type: MAC ASA Status: 3 All Anesthesia Providers: Anesthesiologist: Ute Novak MD [employer] SALES ENGINEER: Chiquita Felix CRNA Vitals Value Taken Time BP 170/68 03/01/20 1001 Temp Pulse Resp 16 03/01/20 1000 SpO2 99 % 03/01/20 1008 Pain Level 0 03/01/20 1000 Vitals shown include unvalidated device data. Patient Location: PACU/[facility] Level of Consciousness: Awake and Alert Pain Management: PONV: None Cardiovascular Status: At Baseline Respiratory Status: At Baseline Postoperative Fluid Status: Intravascular EUvolemia Possible Anesthetic Complications: NONE apparent at time of evaluation Final Primary Anesthesia Type: MAC (The anesthetic type performed was the same as planned.) Comments: * Anesthesia Preprocedure Evaluation - Ute Novak MD - 03/01/2020 7:53 AM EDT Pre-Anesthesia Evaluation for: Jennifer Irving a 59 y.o. female. Procedure(s): EGD, UPPER GI ENDOSCOPY COLONOSCOPY, DIAGNOSTIC Patient Active Problem List Diagnosis ??? BMI 37.0-37.9, adult ??? T2DM (type 2 diabetes mellitus) ??? GERD (gastroesophageal reflux disease) ??? Farrell's esophagus No past medical history on file. Past Surgical History: Procedure Laterality Date ??? PRO COLONOSCOPY, BIOPSY N/A 03/20/2016 COLONOSCOPY FLEXIBLE, WITH BX performed by David Dejesus MD at [facility] ??? PRO UPPER GI ENDOSCOPY, BIOPSY N/A 04/03/2014 UPPER GASTROINTESTINAL ENDOSCOPY,WITH BIOPSY SINGLE OR MULTIPLE performed by David Dejesus MDat [facility] ??? PRO UPPER GI ENDOSCOPY, BIOPSY N/A 03/20/2016 EGD WITH BIOPSY performed by David Dejesus MD at [facility] ??? PRO UPPER GI ENDOSCOPY, BIOPSY N/A 11/22/2018 EGD WITH BIOPSY (WRVU 2.49) performed by David Dejesus MD at [facility] ??? PRO UPPER GI ENDOSCOPY, DIAGNOSTIC N/A 04/03/2014 EGD, UPPER GI ENDOSCOPY performed by David Dejesus MD at [facility] Social History Tobacco Use ??? Smoking status: Current Every Day Smoker Packs/day: 0.50 Years: 11.00 Pack years: 5.50 ??? Smokeless tobacco: Never Used Substance Use Topics ??? Alcohol use: Yes Alcohol/week: 1.0 standard drinks Types: 1 Glasses of wine per week Comment: a couple times a month Social History Substance and Sexual Activity Drug Use Never Allergies Allergen Reactions ??? Meperidine Hcl CIS - violently ill Medications: MAR and/or home medications have been reviewed. Physical Exam: Patient Vitals for the past 24 hrs: Temp Pulse Resp BP SpO2 O2 Device 03/01/20 0713 36.6 ??C (97.8 ??F) 83 16 166/84 98 % RA Body mass index is 33.07 kg/m??. Height: 154.9 cm (5' 1) Weight: 79.4 kg (175 lb) Airway Assessment: Mallampati: II TM distance: >3 FB Neck ROM: full Cardiovascular Assessment: Rhythm: regular Rate: normal (-) murmur cardiovascular exam normal Pulmonary Assessment: (-) wheezes and decreased breath sounds pulmonary exam normal Dental Assessment: - normal exam Misc Assessment: IV access: Peripheral line Anesthesia Plan: ASA 3 MAC, with a(n) intravenous induction Glc 280 this a.m. Took her regular diabetes medications last night but also had gingerale last evening Does not take diabetes medications in the a.m. Normal range for her is 150-250. We will leave as is, and recheck Glc in recovery Plan: MAC, recheck glc in recovery Region - Other Informed Consent: Anesthetic plan and risks discussed with patient. Plan discussed with [employer] SALES ENGINEER and attending. PAT Clinic Note documented in this encounter Plan of Treatment Upcoming Encounters Date Type Department Care Team (Late st Contact Info) Description 12/07/2023 1:00 PM EDT Appointment Pulmonology at [place] [phone] 12/07/2023 2:00 PM EDT Office Visit Thoracic Surgery at [place] [phone] Geronimo Mojica MD [facility] [place] [address] 12/27/2023 11:30 AM EDT Office [place] [address] Noe Cuenca MD [facility] [place] [address] Scheduled Procedures Name Priority Associated Diagnoses Date/Ti me EGD, UPPER GI ENDOSCOPY (WRV U 2.09) Peptic stricture of esophagus documented as of this encounter Visit Diagnoses Not on filedocumented in this encounter Administered Medications Inactive Administered Medications - up to 3 most recent administrations Medication Order MAR Action Action Date Dose Rate Site lidocaine (PF) (XYLOCAINE) 100 mg/5 mL (2 %) injection PRN, Starting on Wed03/01/20 at 0836, Until Wed03/01/20 at 1017, Anesthesia Intra-op, Routine Given 03/01/2020 8:40 AM EDT 40 mg Given 03/01/2020 8:36 AM EDT 40 mg propofoL (Diprivan) 10 mg/mL bolus injection (Anesthesia) PRN, Starting on Wed03/01/20 at 0836, Until Wed03/01/20 at 1017, Anesthesia Intra-op Given 03/01/2020 8:42 AM EDT 20 mg Given 03/01/2020 8:40 AM EDT 20 mg Given 03/01/2020 8:36 AM EDT 60 mg propofoL (Diprivan) infusion CONTINUOUS PRN, Starting on Wed03/01/20 at 0836, Until Wed03/01/20 at 1017, Anesthesia Intra-op, Routine Rate/Dose Change 03/01/2020 9:05 AM EDT 75 mcg/kg/min 35.7 mL/hr Rate/Dose Change 03/01/2020 8:46 AM EDT 125 mcg/kg/min 59. 6 mL/hr Rate/Dose Change 03/01/2020 8:38 AM EDT 200 mcg/kg/min 95. 3 mL/hr documented in this encounter Care Teams Practice Managers Relationship Specialty Start Date End Date Ana Gillespie APRN [address] [place] [address] PCP - General Family Medicine 02/03/19 documented as of this encounter
--- OUTSIDE RECORDS SUMMARY | 2023-12-03 14:59 | XMS_ITS | Encounter Summary ---
Author Organization [facility] [place] [address] Care Team Providers Care First Front Ventilator Name Role Phone Ana Gillespie VAUGHN Primary Care Provider [phone] Encounter Details Date Type Department Care Team (Late Contact Info) Description 10/21/2021 Telephone [place] [address] Chiquita James, RN Social History [...] Telephone Encounter - Chiquita James, RN - 10/21/2021 10:52 AM EDT Incoming voice message from Jennifer requesting a PA for her Pantoprazole per her pharmacy [facility]. Forwarded documented in this encounter Plan of Treatment Upcoming Encounters Date Type Department Care Team (Late st Contact Info) Description 12/07/2023 1:00 PM EDT Appointment [place] [address] 12/07/2023 2:00 PM EDT Office [place] [address] Geronimo Mojica MD [facility] [place] [address] 12/27/2023 11:30 AM EDT Office [place] [phone] Noe Cuenca MD [facility] [place] [address] Scheduled Procedures Name Priority Associated Diagnoses Date/Ti me EGD, UPPER GI ENDOSCOPY (WRV U 2.09) Peptic stricture of esophagus documented as of this encounter Visit Diagnoses Not on filedocumented in this encounter Care Teams First Front Ventilator Relationship Specialty Start Date End Date Ana Gillespie APRN [address] [place] [address] PCP - General Family Medicine 02/03/19 documented as of this encounter
--- OUTSIDE RECORDS SUMMARY | 2023-12-03 14:59 | XMS_ITS | Encounter Summary ---
Author Organization [facility] [place] [address] Care Team Providers Care Supervisor Reclamation Name Role Phone Ana Gillespie VAUGHN Primary Care Provider [phone] Encounter Details Date Type Department Care Team (Late Contact Info) Description 09/12/2021 Telephone [place] [address] Chiquita James, RN Social History [...] Encounter - Chiquita James, RN - 09/12/2021 1:40 PM EDT Return call placed to Jennifer to let her know Dr Dejesus would recommend she ask her PCP for the requested letter. documented in this encounter Plan of Treatment Upcoming Encounters Date Type Department Care Team (Late st Contact Info) Description 12/07/2023 1:00 PM EDT Appointment [place] [address] 12/07/2023 2:00 PM EDT Office [place] [address] Geronimo Mojica MD [facility] [place] [address] 12/27/2023 11:30 AM EDT Office [place] [phone] Noe Cuenca MD [facility] [place] [address] Scheduled Procedures Name Priority Associated Diagnoses Date/Ti me EGD, UPPER GI ENDOSCOPY (WRV U 2.09) Peptic stricture of esophagus documented as of this encounter Visit Diagnoses Not on filedocumented in this encounter Care Teams Supervisor Reclamation Relationship Specialty Start Date End Date Ana Gillespie APRN [address] [place] [address] PCP - General Family Medicine 02/03/19 documented as of this encounter
--- OUTSIDE RECORDS SUMMARY | 2023-12-03 14:59 | XMS_ITS | Encounter Summary ---
Author Organization [facility] Address [facility] [place] [address] Care Team Providers Care Time Clock Inspector Name Role Phone Ana Gillespie VAGUHN Primary Care Provider [phone] Encounter Details Date Type Department Care Team (Late st Contact Info) Description 03/01/2020 8:30 AM EDT - 03/01/2020 9:30 AM EDT Surgery [place] [address] David Dejesus MD [facility] [place] [address] EGD, UPPER GI ENDOSCOPY (WRVU 2.09) Social History Tobacco Use Types Packs/Day Years [...] Sign Reading Time Taken Comments Blood Pressure 148/108 03/01/2020 9:30 AM EDT Pulse 83 03/01/2020 7:13 AM EDT Temperature 36.6 ??C (97.8 ??F) 03/01/2020 7:13 AM ED T Respiratory Rate 16 03/01/2020 9:30 AM EDT Oxygen Saturation 100% 03/01/2020 9:30 AM EDT Inhaled Oxygen Concentration - - [...] the day after the procedure, use an fhes-ohx-jdbhanq spray to numb your throat. Sucking on [...] occurs, please contact your Doctor. Please call [phone] before 8pm Mon-Fri with problems, questions or concerns. If you call after 8pm or on weekends, call the Hospital at [phone] and ask to speak to the Resistor Winder store consultant and the piercing machine operator will contact that person for you. When should you call for help? Call [phone] anytime you think you may need emergency [...] any problems. Where can you learn more? [facility] [place] View your After Visit Summary and more online at [email or web address] If you would like to provide feedback about your hospital experience, please call the Office of Patient and Family Relations at . If you have received this After Visit Summary in error, please immediately return it in person to the department, or notify the [facility] Privacy Office by calling toll free at between the hours of 8AM and 5PM to arrange for our retrieval of the documents at no cost to you. Content Version: 12.2 ?? 7808-4240 [employer]. Care instructions adapted under license by [facility]. If you have questions about a medical condition or this instruction, always ask your healthcare professional. [employer] disclaims any warranty or liability for your [...] occurs, please contact your Doctor. Please call [phone] before 8pm Mon-Fri with problems, questions or concerns. If you call after 8pm or on weekends, call the Hospital at [phone] and ask to speak to the Resistor Winder store consultant and the piercing machine operator will contact that person for you. When should you call for help? Call [phone] anytime you think you may need emergency [...] any problems. Where can you learn more? [facility] [place] View your After Visit Summary and more online at [email or web address] If you would like to provide [...] cost to you. Content Version: 12.2 ?? [id number] [employer]. Care instructions adapted under license by [facility]. If you have questions about a medical condition or this instruction, always ask your healthcare professional. [employer] disclaims any warranty or liability for your [...] meter kit. 1 each 0 12/14/2014 Insulin Broughton, Disposable, (BD INSULIN PEN NEEDLE UF MINI) [...] by mouth daily. ??? Blood Sugar Diagnostic (ONETOUCH ULTRA [...] meter kit. 1 each 0 ??? Insulin Broughton, Disposable, (BD INSULIN PEN NEEDLE UF MINI) 31 x 3/16 Needle 1 Device by [facility].(Non-Drug; Combo Route) route [...] 12/07/2023 1:00 PM EDT Appointment [place] [phone] 12/07/2023 2:00 PM EDT Office Visit [place] [address] Geronimo Mojica MD [facility] [place] [address] 12/27/2023 11:30 AM EDT Office [place] [phone] Noe Cuenca MD [facility] [place] [address] Scheduled Procedures Name Priority Associated Diagnoses Date/Ti [...] 8:42 AM EDT Upper Gi Endoscopy, Biopsy ([id number]) 03/01/2020 8:36 AM EDT needs egd/colonoscopy for GERD and screening colo rojelio Colonoscopy, Diagnostic ([id number]) 03/01/2020 8:36 AM EDT needs egd/colonoscopy for GERD and screening colo rojelio Upper GI Endoscopy, Diagnostic ([id number]) 03/01/2020 8:36 AM EDT needs egd/colonoscopy for GERD and screening colo rojelio UPPER GI ENDOSCOPY Routine 03/01/2020 7: 47 AM EDT COLONOSCOPY Routine 03/01/2020 7:22 AM EDT documented in this encounter Results * Surgical Pathology Report (03/01/2020 8:42 AM EDT) FINAL DIAGNOSIS (AP) [id number] ? Location: 4T; EA06; A The signing [...] dysplasia. D - Esophagus, 34 cm, biopsy: Covingotn's esophagus, negative for dysplasia. Electronically signed by: ??Jeniffer Hill MD Verified: ??03/10/2020 ?Pathologist Performed at: ??-[facility] Dept. of Pathology, [place], [place] SPECIMEN(S) SUBMITTED A - 28 cm, [...] labeled D1. ??sns 03/10/2020 12:01 PM EST [facility] 03/01/2020 8:42 AM EDT David Dejesus MD PATHOLOGY/CYTOLOGY ORDERABLES [facility] [place] [address] * Specimen to Pathology (03/01/2020 8:42 AM EDT) AP Specimen 03/01/2020 8:42 AM EDT 03/01/2020 8:42 AM EDT Narrative [facility] - 03/01/2020 8:42 AM EDT Specimen requisition ordered. ??Separate Pathology report to follow David Dejesus MD PATHOLOGY/CYTOLOGY ORDERABLES Performing Organization Address City/[facility]/[place] [address] * Specimen to Pathology (03/01/2020 8:42 AM EDT) AP Specimen 03/01/2020 8:42 AM EDT 03/01/2020 8:42 AM EDT Narrative [facility] - 03/01/2020 8:42 AM EDT Specimen requisition ordered. ??Separate Pathology report to follow David Dejesus MD PATHOLOGY/CYTOLOGY ORDERABLES Performing Organization Address City/[facility]/ZIP Co de Phone Number [facility] [place] [address] * Specimen to Pathology (03/01/2020 8:42 AM EDT) AP Specimen 03/01/2020 8:42 AM EDT 03/01/2020 8:42 AM EDT Narrative [facility] - 03/01/2020 8:42 AM EDT Specimen requisition ordered. ??Separate Pathology report to follow David Dejesus MD PATHOLOGY/CYTOLOGY ORDERABLES Performing Organization Address City/[facility]/ZIP Co de Phone Number [facility] [place] [address] * Specimen to Pathology (03/01/2020 8:42 AM EDT) AP Specimen 03/01/2020 8:42 AM EDT 03/01/2020 8:42 AM EDT Narrative [facility] - 03/01/2020 8:42 AM EDT Specimen requisition ordered. ??Separate Pathology report to follow David Dejesus MD PATHOLOGY/CYTOLOGY ORDERABLES [facility] [place] [address] * UPPER GI ENDOSCOPY (03/01/2020 7:47 AM EDT) UPPER GI ENDOSCOPY [facility] Endoscopy Procedure Date: 03/01/2020 7:47 AM ? Patient Name: Jennifer Irving ? Date of : 1960 ? Age: 59 ? Order #: [id number] ? Instrument Name: [id number] ? Procedure: ? Upper GI endoscopy Indications: ? Follow-up of Covington's esophagus Providers: ? David Dejesus MD, Elizabeth Celis, ? RN, Eligio Sadler RN Referring : ?Ana PeeplePass Medicines: ? Monitored Anesthesia Care Complications: ? [...] AM PROVATION 03/01/2020 7:47 AM EDT Ana Gillespei APRN GENERAL SURGICAL ORD ERABLES PROVATION * COLONOSCOPY (03/01/2020 7:22 AM EDT) COLONOSCOPY [facility] Endoscopy Procedure Date: 03/01/2020 7:22 AM ? Patient Name: Jennifer Irving ? Date of : 1960 ? Age: 59 ? Order #: [id number] ? Instrument Name: [id number] ? Procedure: ? Colonoscopy Indications: ? Screening for colorectal malignant ? neoplasm Providers: ? David Dejesus MD, Elizabeth Celis, ? RN, Eligio Sadler RN Referring : ?Ana Young Medicines: ? Monitored [...] CRNA) documented in this encounter Care Teams Time Clock Inspector Relationship Specialty Start Date End Date Ana Gillespie APRN [address] [place] [address] PCP - General Family Medicine 02/03/19 documented as of this encounter
--- OUTSIDE RECORDS SUMMARY | 2023-12-03 14:59 | XMS_ITS | Encounter Summary ---
[place] [address] Care Team Providers Care Lease Analyst Name Role Phone Ana Gillespie VAUGHN Primary Care Provider [phone] Encounter Details Date Type Department Care Team (Late Contact Info) Description 11/20/2021 Telephone [place] [address] Chiquita James, RN Social History [...] Telephone Encounter - Chiquita James, RN - 11/20/2021 2:36 PM EDT Incoming voice message from Jennifer's Campos regarding her 3 month EGD follow up due next month. Campos states they have called multiple times to [phone], and been on hold upwards of 45 minutes at a time. States he has left messages for call back and hasn't yet gotten a return call. He is very worried about getting this scheduled on time. Forwarded for review documented in this encounter Plan of Treatment Upcoming Encounters Date Type Department Care Team (Late Contact Info) Description 12/07/2023 1:00 PM EDT [place]ointment [place] [address] 12/07/2023 2:00 PM EDT Office [place] [address] Geronimo Mojica MD [facility] [place] [address] 12/27/2023 11:30 AM EDT Office [place] [address] Noe Cuenca MD [facility] [place] [address] Scheduled Procedures Name Priority Associated Diagnoses Date/Ti me EGD, UPPER GI ENDOSCOPY (WRV U 2.09) Peptic stricture of esophagus documented as of this encounter Visit Diagnoses Not on filedocumented in this encounter Care Teams Lease Analyst Relationship Specialty Start Date End Date Ana Gillespie APRN [address] [place] [address] PCP - General Family Medicine 02/03/19 documented as of this encounter
--- OUTSIDE RECORDS SUMMARY | 2023-12-03 14:59 | XMS_ITS | Encounter Summary ---
[place] [address] Care Team Providers Care Hydroelectric Machinery Mechanic Helper Name Role Phone Ana Gillespie VAUGHN Primary Care Provider [phone] Encounter Details Date Type Department Care Team (Late st Contact Info) Description 09/29/2021 Telephone [place] [phone] David Dejesus MD [facility] [place] [address] Social History Tobacco Use Types Packs/Day Years [...] encounter Miscellaneous Notes * Telephone Encounter - David Dejesus MD - 09/29/2021 2:11 PM EDT I spoke to Jennifer about her biopsy results. No evidence of malignancy. We will have her continue on the Nexium 40 mg bid and Carafate qid and I will plan on repeat endoscopy in three months! documented in this encounter Plan of Treatment Upcoming Encounters Date Type Department Care Team (Late st Contact Info) Description 12/07/2023 1:00 PM EDT Appointment [place] [phone] 12/07/2023 2:00 PM EDT Office [place] [address] Geronimo Mojica MD [facility] [place] [address] 12/27/2023 11:30 AM EDT Office [place] [phone] Noe Cuenca MD [facility] [place] [address] Scheduled Procedures Name Priority Associated Diagnoses Date/Ti me EGD, UPPER GI ENDOSCOPY (WRV U 2.09) Peptic stricture of esophagus documented as of this encounter Visit Diagnoses Not on filedocumented in this encounter Care Teams Hydroelectric Machinery Mechanic Helper Relationship Specialty Start Date End Date Ana Gillespie APRN [address] [place] [address] PCP - General Family Medicine 02/03/19 documented as of this encounter
--- OUTSIDE RECORDS SUMMARY | 2023-12-03 14:59 | XMS_ITS | Encounter Summary ---
Author Organization [facility] Address [facility] [place] [address] Care Team Providers Care Electrical And Radio Aircraft Mechanic Name Role Phone Ana Gillespie VAUGHN Primary Care Provider [phone] Encounter Details Date Type Department Care Team (Latest Contact Info) Description 09/23/2021 11:01 AM EDT - 09/23/2021 1:32 PM EDT Hospital [place] [address] David Dejesus MD [facility] [place] [address] Discharge Disposition: Home Social History Tobacco Use [...] Sign Reading Time Taken Comments Blood Pressure 139/82 09/23/2021 1:10 PM EDT Pulse 72 09/23/2021 11:19 AM EDT Temperature 36.2 ??C (97.2 ??F) 09/23/2021 11:19 AM E DT Respiratory Rate 18 09/23/2021 1:10 PM EDT Oxygen Saturation 98% 09/23/2021 1:10 PM EDT Inhaled Oxygen Concentration - - Weight 78.5 kg (173 lb) 09/23/2021 11:19 AM EDT Height 157.5 cm (5' 2) 09/23/2021 11:19 AM EDT Body Mass Index 31.64 09/23/2021 11:19 AM EDT documented in this encounter Discharge Instructions * Discharge Instructions* Lucia Agustin, RN - 09/23/2021 12:31 PM EDT Upper GI Endoscopy: What to [...] the day after the procedure, use an [id number]-[id number] spray to numb your throat. Sucking on [...] occurs, please contact your Doctor. Please call [phone] before 8pm Mon-Fri with problems, questions or concerns. If you call after 8pm or on weekends, call the Hospital at [phone] and ask to speak to the Engineering Coordinator aeronautical engineering technologist and the earth auger operator will contact that person for you. When should you call for help? Call 521 anytime you think you may need emergency [...] any problems. Where can you learn more? [facility] View your After Visit Summary and more online at [email or web address] If you would like to provide feedback about your hospital experience, please call the Office of Patient and Family Relations at . If you have received this After Visit Summary in error, please immediately return it in person to the department, or notify the [facility] Privacy Office by calling toll free at between the hours of 8AM and 5PM to arrange for our retrieval of the documents at no cost to you. Content Version: 12.2 ?? [id number] [employer]. Care instructions adapted under license by [facility]. If you have questions about a medical condition or this instruction, always ask your healthcare professional. [employer] disclaims any warranty or liability for your [...] meter kit. 1 each 0 12/14/2014 Insulin Williams, Disposable, (BD INSULIN PEN NEEDLE UF MINI) [...] as of this encounter H&P Notes * Janelle Street MD - 09/23/2021 11:49 AM EDT Patient Name: Jennifer Irving Patient Age: 61 y.o. Birthdate: 1960 Admit date: 09/23/2021 Attending Physician: David Dejesus MD HISTORY OF PRESENT ILLNESS Jennifer Irving is a 61 y.o. who presents for EGD for follow up of esophagitis; known Farrell's esophagus. PROBLEM LIST Patient Active Problem List Diagnosis Code ??? GERD (gastroesophageal reflux disease) K21.9 ??? Farrell's esophagus K22.70 ??? T2DM (type 2 diabetes mellitus) E11.9 ??? BMI 37.0-37.9, adult Z68.37 MEDICATIONS No current facility-administered medications on file prior to encounter. Current Outpatient Medications on File Prior to Encounter Medication Sig Dispense Refill ??? sucralfate (Carafate) 1 gram Tablet Take 1 tablet by mouth 4 times daily. 360 tablet 3 ??? pantoprazole EC (Protonix) 40 mg Tablet, Delayed Release (E.C.) Take 1 tablet by mouth 2 times daily. 180 tablet 3 ??? glyBURIDE (Diabeta) 5 mg Tablet Take 5 mg by mouth daily. ??? HumuLIN N NPH Insulin KwikPen Insulin [...] 2 times daily. ??? Blood Sugar Diagnostic ([employer] ULTRA TEST) Strip 1 each by Other route 3 times daily. by Other route. 1 box = 100 test strips; 3 boxes = 300 test strips. 300 each 3 ??? lancets (ONE TOUCH DELICA) 33 gauge Misc 1 each by Other route 3 times daily. by Other route. 1box = 100 test strips; 3 boxes = 300 test strips. 300 each 3 ??? ALPRAZolam (XANAX XR) 3 mg Tablet Sustained Release 24 hr Take 3 mg by mouth every morning. ??? insulin glargine (LANTUS) Solution Inject 62 Units subcutaneously nightly. ??? insulin aspart (NOVOLOG FLEXPEN) Insulin Pen Inject 10-20 Units subcutaneously 3 times daily (before meals). Refer to correction factor scale for dosing. 15 mL 11 ??? Insulin Williams, Disposable, (BD INSULIN PEN NEEDLE UF MINI) 31 x 3/16 Needle [address] [facility].(Non-Drug; Combo Route) route 3 times daily as needed. 100 each 11 ??? lithium 300 mg Capsule Take 1,000 mg by mouth daily. ??? PARoxetine (PAXIL) 40 mg Tablet Take 20 mg by mouth every morning. ??? esomeprazole (NEXIUM) 40 mg Capsule, Delayed Release(E.C.) Take 1 capsule by mouth 2 times daily. 180 capsule 3 ??? Blood-Glucose Meter (ONETOUCH ULTRA2) Kit by Other route. 1 = one blood glucose meter kit. 1 each 0 ??? metFORMIN (GLUCOPHAGE) 1,000 mg Tablet Take 1 tablet by mouth 2 times daily (with meals). 180 tablet 3 ??? albiglutide 30 mg/0.5 mL Pen Injector Inject 30 mg subcutaneously once a week. 4 each 11 PHYSICAL EXAM: Blood pressure 140/73, pulse 72, temperature 36.2 ??C (97.2 ??F), resp. rate 16, height 157.5 cm (5' 2), weight 78.5 kg (173 lb), SpO2 97 %. GEN: Alert, cooperative. Pleasant. In NAD MP per anesthesia ASA 3 HEENT: No oropharyngeal lesions. Neck supple. No masses. LUNGS: CTAB CARD: RRR without m/g/r ABD: Non-distended. Active BS. Soft. Benign. No masses. No HSM. RECENT LABS No results found for this or any previous visit (from the past 24 hour(s)). ASSESSMENT AND PLAN Jennifer Irving is a 61 y.o. who presents for endoscopic evaluation. Risks extensively discussed including bleeding, infection, reaction to anesthesia, perforation, missing a cancer (if applicable) and/or other unforseen complication. Consent signed and patient well informed of the risks of the procedure. documented in this encounter Plan of Treatment Upcoming Encounters Date Type Department Care Team (Late st Contact Info) Description 12/07/2023 1:00 PM EDT [place] [address] 12/07/2023 2:00 PM EDT Office [place] [address] Geronimo Mojica MD [facility] [place] [address] 12/27/2023 11:30 AM EDT [place] [address] Noe Cuenca MD [facility] [place] [address] Scheduled Procedures Name Priority Associated Diagnoses Date/Ti me EGD, UPPER GI ENDOSCOPY (WRV U 2.09) Peptic stricture of esophagus documented as of this encounter Procedures Procedure Name Priority Date/Time Associated Diagnosis Comments SURGICAL PATHOLOGY REPORT Routine 09/23/2021 12:24 PM EDT SPECIMEN TO PATHOLOGY Routine 09/23/2021 12:24 PM EDT SPECIMEN TO PATHOLOGY Routine 09/23/2021 12:24 PM EDT Upper Gi Endoscopy, Biopsy ([id number]) 09/23/2021 12:02 PM EDT Gastroesophageal reflux disease with esophagitis without hemorrhage UPPER GI ENDOSCOPY Routine 09/23/2021 11 :52 AM EDT documented in this encounter Results * Surgical Pathology Report (09/23/2021 12:24 PM EDT) FINAL DIAGNOSIS (AP) ? Location: 4; [facility]; A The signing pathologist has (i) examined the relevant preparation(s) for the specimen(s) and (ii) rendered or confirmed the diagnosis(es). . ?Surgical Pathology DIAGNOSIS A - Distal esophagus ulcer, biopsy (Multiple): Predominantly necrotic tissue, and small fragments of cardiac mucosa with focal intestinal metaplasia, negative for dysplasia. B - Long segment of ulcer/ esophagitis, biopsy (Multiple): Predominantly necrotic tissue with fibrinopurulent exudate, fragments of squamous mucosa with active inflammation and ulceration. Electronically signed by: ?Sergio MARTE, Jeniffer Verified: ??09/26/2021 19:44 ??Pathologist Performed at: ??-[facility] [place], [place], [place] SPECIMEN(S) SUBMITTED A - Distal esophagus ulcer, biopsy (Multiple) B - Long segment of ulcer/ esophagitis, biopsy (Multiple) CLINICAL INFORMATION 61-year-old F, F/U esophagitis, known Farrell's esophagus SPECIMEN PROCESSING A - Labeled/Fixative: Distal esophagus ulcer, formalin. Quantity/Size: Five, averaging 0.5 cm. Tissue Description: Soft, red-kirby tissues. Sections/Processin g: Submitted en toto ??in 1 cassette labeled A1. B - Labeled/Fixative: Long segment of ulcer/esophagitis, formalin. Quantity/Size: Six, 0.2-0.4 cm. Tissue Description: Soft, yellow to kirby-red tissues. Sections/Processin g: Submitted en toto ??in 2 cassettes labeled B1-B2. ??shb 09/26/2021 7:44 PM EDT [facility] 09/23/2021 12:2 4 PM EDT David Dejesus MD PATHOLOGY/CYTOLOGY ORDERABLES [facility] [place] [address] * Specimen to Pathology (09/23/2021 12:24 PM EDT) AP Specimen 09/23/2021 12:2 4 PM EDT 09/23/2021 12:24 PM EDT Narrative [facility] - 09/23/2021 12:24 PM EDT Specimen requisition ordered. ??Separate Pathology report to follow David Dejesus MD PATHOLOGY/CYTOLOGY ORDERABLES [facility] [place] [address] * Specimen to Pathology (09/23/2021 12:24 PM EDT) AP Specimen 09/23/2021 12:2 4 PM EDT 09/23/2021 12:24 PM EDT Narrative [facility] - 09/23/2021 12:24 PM EDT Specimen requisition ordered. ??Separate Pathology report to follow David Dejesus MD PATHOLOGY/CYTOLOGY ORDERABLES [facility] [place] [address] * UPPER GI ENDOSCOPY (09/23/2021 11:52 AM EDT) UPPER GI ENDOSCOPY [facility] Endoscopy Procedure Date: 09/23/2021 11:52 AM ? Patient Name: Jennifer Irving ? N: [id number] ? Date of : 1960 ? Age: 61 ? Order #: [id number] ? Instrument Name: [id number] ? Procedure: ? Upper GI endoscopy Indications: ? Heartburn Providers: ? David Dejesus MD, Neej J. ? Valerie Street, ? Theodora Farrell, Cooler Servicer Referring : ?Ana Keith: ? Monitored Anesthesia [...] normal oropharyngeal ? airway and neck mobility. CV ? Examination: normal. Prophylactic ? Antibiotics: The patient [...] the procedure ? well. ? Findings: ? At 20 cm, the very tip of the patient's known long ? segment Farrell's esophagus was visualized. There was ? a small rim of Farrell's and then from 21-27 cm there ? was circumferential ulceration completely overlying ? the Farrell's mucosa - this was biopsied randomly. At ? 31 cm there was a 10 cm cratered ulcer which was ? biopsied separately. There was a hiatal hernia from ? 32-35 cm. ? The stomach was normal. ? The examined duodenum was normal. ? Moderate Sedation: ? Not applicable - See Anesthesia documentation Impression: ?- Severe esophagitis in the context ? of Farrell's esophagus with a ? distal esophageal ulcer Recommendation: ?- Await pathology results ? - Continue current medications ? Attending Participation: ? I was present and participated during the entire ? procedure, including non-fam portions. ? ___ David Dejesus MD 09/23/2021 12:24:56 PM This report has been signed electronically. Number of Addenda: 0 Note Initiated On: 09/23/2021 11:52 AM PROVATION 09/23/2021 11:5 2 AM EDT Ana Gillespie FUEL CELL BINDER GENERAL SURGICAL ORD ERABLES PROVATION documented in this encounter Visit Diagnoses Not on filedocumented in this encounter Administered Medications Inactive Administered Medications - up to 3 most recent administrations Medication Order MAR Action Action Date Dose Rate Site lactated ringers infusion 100 mL/hr, Intravenous, CONTINUOUS, Starting on Wed09/23/21 at 1130, Until Wed09/23/21 at 1319, Endoscopy (Day of Procedure) New Bag 09/23/2021 11:32 AM EDT 100 mL/hr 100 mL/hr documented in this encounter Active and Recently Administered Medications Times are shown in EDT. Continuous Medication Order 09/21/2021 09/22/2021 09/23/2021 lactated ringers infusion (CANCELED) 100 mL/hr, Intravenous, CONTINUOUS, Starting on Wed09/23/21 at 1130, Until Wed09/23/21 at 1319, Endoscopy (Day of Procedure) 1132 (New Bag - Prov ider: Parris Quinn RN) documented in this encounter Care Teams Electrical And Radio Aircraft Mechanic Relationship Specialty Start Date End Date Ana Gillespie APRN [address] [place] [address] PCP - General Family Medicine 02/03/19 documented as of this encounter
--- OUTSIDE RECORDS SUMMARY | 2023-12-03 14:59 | XMS_ITS | Encounter Summary ---
Author Organization [facility] [place] [facility] [place] [address] Care Team Providers Care Counterintelligence Specialist Name Role Phone Ana Gillespie APRN Primary Care Provider [phone] Reason for Visit * Reason Onset Date Comments Medication Refill 07/15/2021 Encounter Details Date Type Department Care Team (Late st Contact Info) Description 07/15/2021 [place] [phone] David Dejesus MD [facility] [place] [address] Gastroesophageal reflux disease with esophagitis without hemorrhage [...] 12/07/2023 1:00 PM EDT [place] [phone] 12/07/2023 2:00 PM EDT Office [place] [address] Geronimo Mojica MD [facility] [place] [address] 12/27/2023 11:30 AM EDT [place] [address] Noe Cuenca MD [facility] [place] [address] Scheduled Procedures Name Priority Associated Diagnoses Date/Ti me EGD, UPPER GI ENDOSCOPY (WRV U 2.09) Peptic stricture of esophagus documented as of this encounter Visit Diagnoses Diagnosis Gastroesophageal reflux disease with esophagitis without hemorrhage documented in this encounter Care Teams Counterintelligence Specialist Relationship Specialty Start Date End Date Ana Gillespie APRN [address] [place] [address] PCP - General Family Medicine 02/03/19 documented as of this encounter
--- OUTSIDE RECORDS SUMMARY | 2023-12-03 14:59 | XMS_ITS | Encounter Summary ---
Author Organization [facility] Address [facility] [place] [address] Care Team Providers Care Athletic Equipment Manager Name Role Phone Ana Gillespie VAUGHN Primary Care Provider [phone] Reason for Referral * Consultation (Routine) - Duplicate Referral Specialty Diagnoses / Procedures Referred By Esperanza rodríguez Referred To Contact Gastroenterology Diagnoses Functional diarrhea David Dejesus MD [facility] [place] [address] [facility] Endoscopy [address] [place] [phone] Referral ID Status Reason Start Date Expiration Date Visits Requested Visits Authorized [id number] Duplicate Referral Consult, Test & Treat 10/16/2019 10/15/2020 1 1 Encounter Details Date Type Department Care Team ([facility] Contact Info) Description 10/16/2019 Orders [place] [address] David Dejesus MD [facility] [place] [address] Functional diarrhea Social History Tobacco Use Types Packs/Day Years [...] 12/07/2023 1:00 PM EDT Appointment [place] [phone] 12/07/2023 2:00 PM EDT Office [place] [phone] Geronimo Mojica MD [facility] [place] [address] 12/27/2023 11:30 AM EDT Office [place] [phone] Noe Cuenca MD [facility] [place] [address] Scheduled Procedures Name Priority Associated Diagnoses Date/Ti me EGD, UPPER GI ENDOSCOPY (WRV U 2.09) Peptic stricture of esophagus Scheduled Referrals Name Type Priority Associated Diagnoses Order Schedule Referral to Gastroenterology Outpatient Referral Routine Functional diarrhea Ordered: 10/16/2019 documented as of this encounter Visit Diagnoses Diagnosis Functional diarrhea documented in this encounter Care Teams Athletic Equipment Manager Relationship Specialty Start Date End Date Ana Gillespie APRN [address] [place] [address] PCP - General Family Medicine 02/03/19 documented as of this encounter
--- OUTSIDE RECORDS SUMMARY | 2023-12-03 14:59 | XMS_ITS | Encounter Summary ---
Author Organization [facility] [place] [address] Care Team Providers Care Architectural Coating Finisher Name Role Phone Ana Gillespie APRN Primary Care Provider [phone] Encounter Details Date Type Department Care Team (Late st Contact Info) Description 09/09/2021 11:59 PM EDT Anesthesia [place] [phone] Bel Villanueva MD [facility] [place] [address] Parris Steinberg CRNA [facility] [place] [address] Anesthesia Record Procedure Summary Procedure Name Responsible [...] fr, MD Hart 03/10/23 1618 by Sergey Jordan, RN documented in this encounter Social History [...] OR Notes * Anesthesia Preprocedure Evaluation - Bel Villanueva MD - 09/09/2021 12:41 PM EDT Pre-Anesthesia Evaluation for: Jennifer Irving [...] BX performed by David Dejesus MD at [facility] ENDOSCOPY ??? PRO COLONOSCOPY, DIAGNOSTIC N/A 03/01/2020 COLONOSCOPY, DIAGNOSTIC performed by David Dejesus MD at [facility] ENDOSCOPY ??? PRO UPPER GI ENDOSCOPY, BIOPSY N/A 04/03/2014 UPPER GASTROINTESTINAL ENDOSCOPY,WITH BIOPSY SINGLE OR MULTIPLE performed by David Dejesus MDat [facility] ENDOSCOPY ??? PRO UPPER GI ENDOSCOPY, BIOPSY N/A 03/20/2016 EGD WITH BIOPSY performed by David Dejesus MD at [facility] ENDOSCOPY ??? PRO UPPER GI ENDOSCOPY, BIOPSY N/A 11/22/2018 EGD WITH BIOPSY (WRVU 2.49) performed by David Dejesus MD at [facility] ENDOSCOPY ??? PRO UPPER GI ENDOSCOPY, BIOPSY N/A 03/01/2020 UPPER GASTROINTESTINAL ENDOSCOPY,WITH BIOPSY SINGLE OR MULTIPLE (WRVU 2.49) performed by David Dejesus MD at [facility] ENDOSCOPY ??? PRO UPPER GI ENDOSCOPY, DIAGNOSTIC N/A 04/03/2014 EGD, UPPER GI ENDOSCOPY performed by David Dejesus MD at [facility] ENDOSCOPY ??? PRO UPPER GI ENDOSCOPY, DIAGNOSTIC N/A 03/01/2020 EGD, UPPER GI ENDOSCOPY performed by David Dejesus MD at [facility] ENDOSCOPY Social History Tobacco Use ??? Smoking status: Current Every Day Smoker Packs/day: 0.50 Years: 11.00 Pack years: 5.50 ??? Smokeless tobacco: Never Used Substance Use Topics ??? Alcohol use: Yes Alcohol/week: 1.0 standard drink Types: 1 Glasses of wine per week Comment: a couple times a month Social History Substance and Sexual Activity Drug Use Never Allergies Allergen Reactions ??? Meperidine Hcl CIS - violently ill Medications: MAR and/or home medications have been reviewed. Physical Exam: Preprocedure Vitals Current as of 09/09/21 1241 No BP, pulse, respiration, SpO2, or temperature recorded. Height: Weight: BMI: IBW: Anesthesia Physical Exam Last Filed Perioperative Cognitive Screening None Anesthesia Plan: ASA 2 MAC, with a(n) intravenous induction 61 yo female here for EGD Current every day smoker, T2DM, obesity, GERD MAC Region - Other Informed Consent: Anesthetic plan and risks discussed with patient. Plan discussed with DOCUMENT REVIEWER. Anesthesia Screening documented in this encounter Plan of Treatment Upcoming Encounters Date Type Department Care Team (Late st Contact Info) Description 12/07/2023 1:00 PM EDT Appoint[place] [phone] 12/07/2023 2:00 PM EDT Office Visit Thoracic Surgery at [place] [phone] Geronimo Mojica MD [facility] [place] [address] 12/27/2023 11:30 AM EDT Office [place] [phone] Noe Cuenca MD [facility] [place] [address] Scheduled Procedures Name Priority Associated Diagnoses Date/Ti me EGD, UPPER GI ENDOSCOPY (WRV U 2.09) Peptic stricture of esophagus documented as of this encounter Visit Diagnoses Not on filedocumented in this encounter Care Teams Architectural Coating Finisher Relationship Specialty Start Date End Date Ana Gillespie APRN [address] [place] [address] PCP - General Family Medicine 02/03/19 documented as of this encounter
--- OUTSIDE RECORDS SUMMARY | 2023-12-03 14:59 | XMS_ITS | Encounter Summary ---
Author Organization [facility] [place] [address] Care Team Providers Care Medicinal Plant Picker Name Role Phone Ana Gillespie VAUGHN Primary Care Provider [phone] Encounter Details Date Type Department Care Team (Late st Contact Info) Description 11/24/2021 Telephone [place] [address] Chiquita James, RN Social History [...] Telephone Encounter - Chiquita James, RN - 11/24/2021 4:07 PM EDT Incoming VM again requesting to be connected with scheduling for F/U EGD Forwarded documented in this encounter Plan of Treatment Upcoming Encounters Date Type Department Care Team (Late st Contact Info) Description 12/07/2023 1:00 PM EDT Appointment [place] [phone] 12/07/2023 2:00 PM EDT Office [place] [address] Geronimo Mojica MD [facility] [place] [address] 12/27/2023 11:30 AM EDT Office [place] [address] Noe Cuenca MD [facility] [place] [address] Scheduled Procedures Name Priority Associated Diagnoses Date/Ti me EGD, UPPER GI ENDOSCOPY (WRV U 2.09) Peptic stricture of esophagus documented as of this encounter Visit Diagnoses Not on filedocumented in this encounter Care Teams Medicinal Plant Picker Relationship Specialty Start Date End Date Ana Gillespie APRN [address] [place] [address] PCP - General Family Medicine 02/03/19 documented as of this encounter
--- OUTSIDE RECORDS SUMMARY | 2023-12-03 14:59 | XMS_ITS | Encounter Summary ---
Author Organization [facility] [place] [address] Care Team Providers Care Health Services Rn Name Role Phone Ana Gillespie APRN Primary Care Provider [phone] Encounter Details Date Type Department Care Team (Late st Contact Info) Description 11/25/2021 Telephone Gastroenterology at [place] [phone] Alla Mejia Social History Tobacco Use Types [...] 12/07/2023 1:00 PM EDT Appointment Pulmonology at [place] [phone] 12/07/2023 2:00 PM EDT Office [place] [phone] Geronimo Mojica MD [facility] [place] [address] 12/27/2023 11:30 AM EDT [place] [phone] Noe Cuenca MD [facility] [address] PULMONARY MEDICINE [place], [place] [phone] Scheduled Procedures Name Priority Associated Diagnoses Date/Ti me EGD, UPPER GI ENDOSCOPY (WRV U 2.09) Peptic stricture of esophagus documented as of this encounter Visit Diagnoses Not on filedocumented in this encounter Care Teams Health Services Rn Relationship Specialty Start Date End Date Ana Gillespie APRN [address] [place] [address] PCP - General Family Medicine 02/03/19 documented as of this encounter
--- OUTSIDE RECORDS SUMMARY | 2023-12-03 14:59 | XMS_ITS | Encounter Summary ---
Author Organization [facility] [place] [address] Care Team Providers Care Avionics Installer Name Role Phone Ana Gillespie VAUGHN Primary Care Provider [phone] Encounter Details Date Type Department Care Team (Late st Contact Info) Description 10/27/2021 Telephone [place] [address] Chiquita James, RN Social History [...] Telephone Encounter - Chiquita James, RN - 10/27/2021 1:31 PM EDT Incoming VM wondering about scheduling 3 month follow up EGD. Forwarded documented in this encounter Plan of Treatment Upcoming Encounters Date Type Department Care Team (Late st Contact Info) Description 12/07/2023 1:00 PM EDT Appointment [place] [address] 12/07/2023 2:00 PM EDT Office Visit [place] [address] Geronimo Mojica MD [facility] [place] [address] 12/27/2023 11:30 AM EDT Office [place] [phone] Noe Cuenca MD [facility] [place] [address] Scheduled Procedures Name Priority Associated Diagnoses Date/Ti me EGD, UPPER GI ENDOSCOPY (WRV U 2.09) Peptic stricture of esophagus documented as of this encounter Visit Diagnoses Not on filedocumented in this encounter Care Teams Avionics Installer Relationship Specialty Start Date End Date Ana Gillespie APRN [address] [place] [address] PCP - General Family Medicine 02/03/19 documented as of this encounter
--- OUTSIDE RECORDS SUMMARY | 2023-12-03 14:59 | XMS_ITS | Encounter Summary ---
Author Organization [facility] Address [facility] [place] [address] Care Team Providers Care Geriatric Physical Therapist Name Role Phone Ana Gillespie VAUGHN Primary Care Provider [phone] Encounter Details Date Type Department Care Team (Late st Contact Info) Description 09/23/2021 12:30 PM EDT - 09/23/2021 1:00 PM EDT [place] [phone] David Dejesus MD [facility] [place] [address] EGD WITH BIOPSY (WRVU 2.39) Social History [...] Sign Reading Time Taken Comments Blood Pressure 146/98 09/23/2021 1:00 PM EDT Pulse 72 09/23/2021 11:19 AM EDT Temperature 36.2 ??C (97.2 ??F) 09/23/2021 11:19 AM E DT Respiratory Rate 18 09/23/2021 1:00 PM EDT Oxygen Saturation 98% 09/23/2021 1:00 PM EDT Inhaled Oxygen Concentration - - [...] the day after the procedure, use an qvgy-wdb-gkuqbmr spray to numb your throat. Sucking on [...] occurs, please contact your Doctor. Please call [phone] before 8pm Mon-Fri with problems, questions or concerns. If you call after 8pm or on weekends, call the Hospital at [phone] and ask to speak to the Inorganic Chemistry Professor conductor pullman and the cutter operator tile will contact that person for you. When [...] Where can you learn more? [facility] View your After Visit Summary and more online at [email or web address] If you would like to provide feedback about your hospital experience, please call the Office of Patient and Family Relations at . If you have received this After Visit Summary in error, please immediately return it in person to the department, or notify the [facility] Privacy Office by calling toll free at between the hours of 8AM and 5PM to arrange for our retrieval of the documents at no cost to you. Content Version: 12.2 ?? [id number] [employer]. Care instructions adapted under license by [facility]. If you have questions about a medical condition or this instruction, always ask your healthcare professional. [employer] disclaims any warranty or liability for your [...] meter kit. 1 each 0 12/14/2014 Insulin [place], Disposable, (BD INSULIN PEN NEEDLE UF MINI) [...] 2 times daily. ??? Blood Sugar Diagnostic (PurePhotoTOUCH ULTRA TEST) Strip 1 each by Other [...] for dosing. 15 mL 11 ??? Insulin [place], Disposable, (BD INSULIN PEN NEEDLE UF MINI) 31 x 3/16 Needle 1 Device by [facility].(Non-Drug; Combo Route) route 3 times daily as needed. 100 each 11 ??? lithium 300 mg Capsule Take 1,000 mg by mouth daily. ??? PARoxetine (PAXIL) 40 mg Tablet Take 20 mg by mouth every morning. ??? esomeprazole (NEXIUM) 40 mg Capsule, Delayed Release(E.C.) Take 1 capsule by mouth 2 times daily. 180 capsule 3 ??? Blood-Glucose Meter (PurePhotoTOUCH ULTRA2) Kit by Other route. 1 = [...] 12/07/2023 1:00 PM EDT [place] [address] 12/07/2023 2:00 PM EDT Office [place] [phone] Geronimo Mojica MD [facility] [place] [address] 12/27/2023 11:30 AM EDT [place] [address] Noe Cuenca MD [facility] [place] [address] Scheduled Procedures Name Priority Associated Diagnoses Date/Ti me EGD, UPPER GI ENDOSCOPY (WRV U 2.09) Peptic stricture of esophagus documented as of this encounter Procedures Procedure Name Priority Date/Time Associated Diagnosis Comments SURGICAL PATHOLOGY REPORT Routine 09/23/2021 12:24 PM EDT SPECIMEN TO PATHOLOGY Routine 09/23/2021 12:24 PM EDT SPECIMEN TO PATHOLOGY Routine 09/23/2021 12:24 PM EDT Upper Gi Endoscopy, Biopsy ([id number]) 09/23/2021 12:02 PM EDT Gastroesophageal reflux disease with esophagitis without hemorrhage UPPER GI ENDOSCOPY Routine 09/23/2021 11 :52 AM EDT documented in this encounter Results * Surgical Pathology Report (09/23/2021 12:24 PM EDT) FINAL DIAGNOSIS (AP) ? Location: 4T; 08; A The signing pathologist has (i) examined [...] Jeniffer Verified: ??09/26/2021 19:44 ??Pathologist Performed at: ??-[facility] Dept. of Pathology, [place], [place] SPECIMEN(S) SUBMITTED A - Distal esophagus [...] labeled B1-B2. ??shb 09/26/2021 7:44 PM EDT [facility] 09/23/2021 12:2 4 PM EDT David Dejesus MD PATHOLOGY/CYTOLOGY ORDERABLES [facility] [place] [address] * Specimen to Pathology (09/23/2021 12:24 PM EDT) AP Specimen 09/23/2021 12:2 4 PM EDT 09/23/2021 12:24 PM EDT Narrative [facility] - 09/23/2021 12:24 PM EDT Specimen requisition ordered. ??Separate Pathology report to follow David Dejesus MD PATHOLOGY/CYTOLOGY ORDERABLES [facility] [place] [address] * Specimen to Pathology (09/23/2021 12:24 PM EDT) AP Specimen 09/23/2021 12:2 4 PM EDT 09/23/2021 12:24 PM EDT Narrative [facility] - 09/23/2021 12:24 PM EDT Specimen requisition ordered. ??Separate Pathology report to follow David Dejesus MD PATHOLOGY/CYTOLOGY ORDERABLES Performing Organization Address [facility]/State/ZIP Co de Phone Number [facility] [place] [address] * UPPER GI ENDOSCOPY (09/23/2021 11:52 AM EDT) UPPER GI ENDOSCOPY [facility] Endoscopy Procedure Date: 09/23/2021 11:52 AM ? Patient Name: Jennifer Irving ? Date of : 1960 ? Age: 61 ? Order #: [id number] ? Instrument Name: [id number] ? Procedure: ? Upper GI endoscopy Indications: ? Heartburn Providers: ? David Dejesus MD, Neej J. ? [address], ? Theodora Farrell, Lead Electrician Referring : ?Ana Keith: ? Monitored Anesthesia [...] 09/23/2021 11:5 2 AM EDT Ana Gillespie ORE TRIMMER GENERAL SURGICAL ORD ERABLES [employer] documented in this encounter Visit Diagnoses Diagnosis Gastroesophageal reflux disease with esophagitis without hemorrhage documented in this encounter Administered Medications Inactive [...] RN) documented in this encounter Care Teams Geriatric Physical Therapist Relationship Specialty Start Date End Date Ana Gillespie APRN [address] [place] [address] PCP - General Family Medicine 02/03/19 documented as of this encounter
--- OUTSIDE RECORDS SUMMARY | 2023-12-03 14:59 | XMS_ITS | Encounter Summary ---
Author Organization [facility] [place] [address] Care Team Providers Care Project/Production Manager Imaging Name Role Phone Ana Gillespie APRN Primary Care Provider [phone] Reason for Visit * Reason Onset Date Comments Medication Refill 10/20/2021 Encounter Details Date Type Department Care Team (Late st Contact Info) Description 10/20/2021 Ref[place] [phone] David Dejesus MD [facility] [place] [address] Gastroesophageal reflux disease with esophagitis without hemorrhage [...] 12/07/2023 1:00 PM EDT [place]oint[place] [phone] 12/07/2023 2:00 PM EDT Office [place] [phone] Geronimo Mojica MD [facility] [place] [address] 12/27/2023 11:30 AM EDT Office [place] [address] Noe Cuenca MD [facility] [place] [address] Scheduled Procedures Name Priority Associated Diagnoses Date/Ti me EGD, UPPER GI ENDOSCOPY (WRV U 2.09) Peptic stricture of esophagus documented as of this encounter Visit Diagnoses Diagnosis Gastroesophageal reflux disease with esophagitis without hemorrhage documented in this encounter Care Teams Project/Production Manager Imaging Relationship Specialty Start Date End Date Ana Gillespie APRN [address] [place] [address] PCP - General Family Medicine 02/03/19 documented as of this encounter
--- OUTSIDE RECORDS SUMMARY | 2023-12-03 14:59 | XMS_ITS | Encounter Summary ---
[place] [address] Care Team Providers Care Machine Burrer Name Role Phone Ana Gillespie VAUGHN Primary Care Provider [phone] Encounter Details Date Type Department Care Team (Late st Contact Info) Description 07/18/2021 Telephone [place] [address] Chiquita James, RN Social History [...] Telephone Encounter - Chiquita James, RN - 07/18/2021 4:01 PM EST Incoming voice message from Jennifer's Campos to let Dr Dejesus know Jennifer just had an upper endoscopy and has been found to have three hole in her esophagus or various sizes Requesting call back from Dr Dejesus to discuss documented in this encounter Plan of Treatment Upcoming Encounters Date Type Department Care Team (Late Contact Info) Description 12/07/2023 1:00 PM EDT Appointment [place] [address] 12/07/2023 2:00 PM EDT Office [place] [address] Geronimo Mojica MD [facility] [address] 12/27/2023 11:30 AM EDT Office [place] [phone] Noe Cuenca MD [facility] [place] [address] Scheduled Procedures Name Priority Associated Diagnoses Date/Ti me EGD, UPPER GI ENDOSCOPY (WRV U 2.09) Peptic stricture of esophagus documented as of this encounter Visit Diagnoses Not on filedocumented in this encounter Care Teams Machine Burrer Relationship Specialty Start Date End Date Ana Gillespie APRN [address] [place] [address] PCP - General Family Medicine 02/03/19 documented as of this encounter
--- OUTSIDE RECORDS SUMMARY | 2023-12-03 14:59 | XMS_ITS | Encounter Summary ---
Author Organization [facility] [place] [address] Care Team Providers Care Shading Painter Name Role Phone Ana Gillespie APRN Primary Care Provider [phone] Encounter Details Date Type Department Care Team (Late Contact Info) Description 10/27/2021 Orders [place] [phone] David Dejesus MD [facility] [place] [address] Gastroesophageal reflux disease with esophagitis without hemorrhage [...] 12/07/2023 1:00 PM EDT [place] [address] 12/07/2023 2:00 PM EDT Office [place] [phone] Geronimo Mojica MD [facility] [place] [address] 12/27/2023 11:30 AM EDT [place] [address] Noe Cuenca MD [facility] [address] [place] [address] Scheduled Procedures Name Priority Associated Diagnoses Date/Ti me EGD, UPPER GI ENDOSCOPY (WRV U 2.09) Peptic stricture of esophagus documented as of this encounter Visit Diagnoses Diagnosis Gastroesophageal reflux disease with esophagitis without hemorrhage documented in this encounter Care Teams Shading Painter Relationship Specialty Start Date End Date Ana Gillespie APRN [address] [place] [address] PCP - General Family Medicine 02/03/19 documented as of this encounter
--- OUTSIDE RECORDS SUMMARY | 2023-12-03 14:59 | XMS_ITS | Encounter Summary ---
[place] [address] Care Team Providers Care City Planning Engineer Name Role Phone Ana Gillespie VAUGHN Primary Care Provider [phone] Reason for Visit * Reason Onset Date Comments Prior Authorization 10/21/2021 Encounter Details Date Type Department Care Team (Late st Contact Info) Description 10/21/2021 Telephone [place] [address] Libby Liu CCMA Prior Authorization Social History Tobacco Use Types [...] encounter Miscellaneous Notes * Telephone Encounter - Libby Liu CCMA - 10/21/2021 11:26 AM EDT Medication Prior Authorization 4L Gastroenterology / [place] [address] Subscriber Insurance: [place] Medicaid Phone: Fax: Physician: David Dejesus NPI: Return Pharmacy: Phone: Fax: Medication Requested: Pantoprazole Strength:40mg Frequency: Take 1 Tablet by mouth twice daily Disp.: Refills: Currently taking: yes Diagnosis for this medication: Farrell's, GERD ICD-10 code: (K22.70) (K21.00) Prior medications trialed in this patient: Esomeprazole, Pantoprazole 1x daily, 20mg, Sucralfate Medication: Outcome/Adverse Reactions:Treatment Failure Decision: Approved Tracking number/Case number/Reference number: [id number] Effective date: Start: 10/21/2021 End: 10/21/2022 documented in this encounter Plan of Treatment Upcoming Encounters Date Type Department Care Team (Late st Contact Info) Description 12/07/2023 1:00 PM EDT Appointment [place] [address] 12/07/2023 2:00 PM EDT Office [place] [phone] Geronimo Mojica MD [facility] [place] [address] 12/27/2023 11:30 AM EDT Office [place] [phone] Noe Cuenca MD [facility] [place] [address] Scheduled Procedures Name Priority Associated Diagnoses Date/Ti me EGD, UPPER GI ENDOSCOPY (WRV U 2.09) Peptic stricture of esophagus documented as of this encounter Visit Diagnoses Not on filedocumented in this encounter Care Teams City Planning Engineer Relationship Specialty Start Date End Date Ana Gillespie APRN [address] [place] [address] PCP - General Family Medicine 02/03/19 documented as of this encounter
--- OUTSIDE RECORDS SUMMARY | 2023-12-03 14:59 | XMS_ITS | Encounter Summary ---
Author Organization [facility] [place] [address] Care Team Providers Care Automobile Mechanic Supervisor Name Role Phone Ana Gillespie APRN Primary Care Provider [phone] Reason for Visit * Reason Onset Date Comments Medication Refill 11/13/2019 Encounter Details Date Type Department Care Team (Late st Contact Info) Description 11/13/2019 Refill [place] [address] David Dejesus MD [facility] [place] [address] Social History Tobacco Use Types Packs/Day Years [...] 12/07/2023 1:00 PM EDT Appointment [place] [phone] 12/07/2023 2:00 PM EDT Office [place] [phone] Geronimo Mojica MD [facility] [place] [address] 12/27/2023 11:30 AM EDT Office [place] [address] Noe Cuenca MD [facility] [place] [address] Scheduled Procedures Name Priority Associated Diagnoses Date/Ti me EGD, UPPER GI ENDOSCOPY (WRV U 2.09) Peptic stricture of esophagus documented as of this encounter Visit Diagnoses Not on filedocumented in this encounter Care Teams Automobile Mechanic Supervisor Relationship Specialty Start Date End Date Ana Gillespie APRN [address] [place] [address] PCP - General Family Medicine 02/03/19 documented as of this encounter
--- OUTSIDE RECORDS SUMMARY | 2023-12-03 15:00 | XMS_ITS | Encounter Summary ---
Author Organization [facility] Address [facility] [place] [address] Care Team Providers Care Wares Sorter Name Role Phone David Blue MD Primary Care Provider [phone] Encounter Details Date Type Department Care Team (Late Contact Info) Description 07/06/2017 Telephone [place] [address] Ami Chao RN Social History Tobacco Use Types Packs/Day Years Used Date Smoking Tobacco: Every Day Cigarettes 1 11 Smokeless Tobacco: Never Alcohol Use Standard Drinks/Week Comments Yes 0 (1 standard drink = 0.6 oz pur e alcohol) rarely Sex and Gender Information Value Date Recorded Sex Assigned at Not on file Gender Identity Not on file Sexual Orientation Not on file documented as of this encounter Miscellaneous Notes * Telephone Encounter - Ami Chao RN - 07/06/2017 3:34 PM EST Received VM from Jennifer. She requests return call from Dr. Dejesus to discuss personal issue. Call returned to Jennifer at [phone]. Spoke to Rogelio. Explained that Dr. Dejesus in procedures this afternoon so may be later today or tomorrow before return call provided. Inquired if there was anything I could do to help and if she'd be willing to speak to me. States that she would prefer to speak with Dr. Dejesus directly and ok for call tomorrow. Message forwarded to Dr. Dejesus. documented in this encounter Plan of Treatment Upcoming Encounters Date Type Department Care Team (Late Contact Info) Description 12/07/2023 1:00 PM EDT Appointment [place] [address] 12/07/2023 2:00 PM EDT Office [place] [phone] Geronimo Mojica MD [facility] [place] [address] 12/27/2023 11:30 AM EDT Office [place] [address] Noe Cuenca MD [facility] [place] [address] Scheduled Procedures Name Priority Associated Diagnoses Date/Ti me EGD, UPPER GI ENDOSCOPY (WRV U 2.09) Peptic stricture of esophagus documented as of this encounter Visit Diagnoses Not on filedocumented in this encounter Care Teams Wares Sorter Relationship Specialty Start Date End Date David Blue MD [address] [place] [address] PCP - General 04/01/10 02/02/19 documented as of this encounter
--- OUTSIDE RECORDS SUMMARY | 2023-12-03 15:00 | XMS_ITS | Encounter Summary ---
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 for Farrell's esophagus last 04/03/14 Procedures PRO UPPER GI ENDOSCOPY, DIAGNOSTIC PRO COLONOSCOPY, DIAGNOSTIC EGD, UPPER GI ENDOSCOPY Referral ID Status Reason Start Date Expiration Date Visits Re quested Visits Authorized [id number] 1 1 Encounter Details Date Type Department Care Team (Latest Contact Info) Description 03/20/2016 9:21 AM EST - 03/20/2016 1:24 PM EST Hospital Encounter [place] [address] David Dejesus MD [facility] [place] [address] Discharge Disposition: Home Social History Tobacco Use Types Packs/Day Years Used Date Smoking Tobacco: Every Day Cigarettes 1 11 Smokeless Tobacco: Never Tobacco Cessation:Ready to Q uit: Yes; Counseling Given: Yes Alcohol Use Standard Drinks/Week Comments Yes 0 (1 standard drink = 0.6 oz pur e alcohol) rarely Sex and Gender Information Value Date Recorded Sex Assigned at Not on file Gender Identity Not on file Sexual Orientation Not on file documented as of this encounter Last Filed Vital Signs Vital Sign Reading Time Taken Comments Blood Pressure 136/116 03/20/2016 12:55 PM EST Pulse 66 03/20/2016 10:44 AM EST Temperature - - Respiratory Rate 18 03/20/2016 10:44 AM EST Oxygen Saturation 96% 03/20/2016 1:00 PM EST Inhaled Oxygen Concentration - - Weight - - Height - - Body Mass Index - - documented in this encounter Discharge Instructions * Discharge Instructions* Nini Simpson RN - 03/20/2016 12:41 PM EST Upper GI Endoscopy and Colonoscopy (with biopsies and/or polyp removal) What to expect after the procedure You may feel a little more gassy or bloated than usual, this is normal. You should expect the return of normal bowel function in the next 2 to 3 days. Because some polyps were removed, you may see a little blood with the next few bowel movements, this should be a small amount ( less than a few tablespoons) and will resolve on its own. ACTIVITY Because of the sedation that you received your judgement and reaction time are effected ?? Go home and rest for the remainder for the day. You may resume your normal activities tomorrow. ?? Change from one position to the next slowly because you may lose your balance unexpectedly. ?? Be careful on stairs, as you may be unsteady. FOR THE NEXT 24 HRS ?? DO NOT DRIVE OR OPERATE MACHINERY ?? DO NOT DRINK ALCOHOLIC BEVERAGES ?? DO NOT SIGN LEGAL DOCUMENTS ?? If you are a smoker: DO NOT SMOKE WHILE YOU ARE ALONE When should you call for help? Call 911 anytime you think you may need emergency care. For example If you pass out (loss of consciousness) If you pass maroon or bloody stools If you have severe belly pain If you cough up blood. If you vomit blood or what looks like coffee grounds. Call your healthcare provider or seek immediate medical care if: Your stools are black or tar like Your stools have streaks of blood that is more pronounced with each BM You have belly pain, or your belly is swollen and firm You vomit or cannot keep fluids down. You have a fever You are very dizzy You have trouble swallowing. You are sick to your stomach Watch closely for changes in your health, and be sure to contact your doctor if you have any problems, such as Your throat still hurts after a day or two You do not get better as expected. Your Doctor will let you know when you will need your next colonoscopy. The results of your test and your risk for colorectal cancer will help your doctor decide how often you need to be checked. If you have questions or concerns, please call us [facility] [phone] 8a-5p Same Day Endo [phone] 7a-8p Nights and weekends contact [phone] and ask to speak to the watchmaker apprentice chief of production. Follow up care is a fam part of your treatment and safety. Be sure to make and go to all appointments, and call your doctor if you are having problems. Discharge instructions reviewed with patient who expresses understanding. documented in this encounter Medications at Time [...] meter kit. 1 each 0 12/14/2014 Insulin [place], Disposable, (BD INSULIN PEN NEEDLE UF MINI) 31 x 3/16 NeedleIndications:Di abetes mellitus type 2, uncontrolled 1 Device by Misc.(Non-Drug; Combo Route) route 3 times daily as needed. 100 each 11 12/13/2014 esomeprazole (NEXIUM) 40 mg Capsule, Delayed Release(E.C.) [...] mg subcutaneously once a week. 4 each 12/13/2014 03/31/2022 insulin aspart (NOVOLOG FLEXPEN) Insulin PenIndications:Diabe riky mellitus type 2, uncontrolled Inject 10-20 Units subcutaneously 3 times daily (before meals). Refer to correction factor scale for dosing. 15 mL 12/13/2014 09/25/2022 lithium 300 mg Capsule Take 1,000 mg by mouth daily. 03/31/2022 PARoxetine (PAXIL) 40 mg Tablet Take 20 mg by mouth every morning. 03/31/2022 documented as of this encounter H&P Notes * Geronimo Padilla MD - 03/20/2016 11:14 AM EST Patient Name: Jennifer Irving Patient Age: 55 y.o. Birthdate: 1960 Admit date: 03/20/2016 Attending Physician: David Dejesus MD . Gastroenterology and Hepatology Pre-Procedure History and Physical Exam Procedure: EGD: Colonoscopy: Indication: barretts surveillance and average risk screening Patient Active Problem List Diagnosis Code ??? GERD (gastroesophageal reflux disease) K21.9 ??? Farrell's esophagus K22.70 ??? T2DM (type 2 diabetes mellitus) E11.9 ??? BMI 37.0-37.9, adult Z68.37 EXAM: HEENT: Airway examined, oropharynx clear Mallampati Score: II (soft palate, uvula, fauces visible) Per anesthesia request A/P Proceed with the planned endoscopic procedure. ASA 2 - Patient with mild systemic disease with no functional limitations Sedation Plan: anesthesia Risks and benefits of the procedure explained to the patient. Consent signed. documented in this encounter Plan of Treatment Upcoming Encounters Date Type Department Care Team (Late st Contact Info) Description 12/07/2023 1:00 PM EDT Appointment [place] [address] 12/07/2023 2:00 PM EDT Office [place] [address] Geronimo Mojica MD [facility] [place] [address] 12/27/2023 11:30 AM EDT Office [place] [phone] Noe Cuenca MD [facility] [place] [address] Scheduled Procedures Name Priority Associated Diagnoses Date/Ti me EGD, UPPER GI ENDOSCOPY (WRV U 2.09) Peptic stricture of esophagus documented as of this encounter Procedures Procedure Name Priority Date/Time Associated Diagnosis Comments SURGICAL PATHOLOGY REPORT Routine 03/20/2016 12:43 PM EST SPECIMEN TO PATHOLOGY Routine 03/20/2016 12:43 PM EST SPECIMEN TO PATHOLOGY Routine 03/20/2016 12:43 PM EST SPECIMEN TO PATHOLOGY Routine 03/20/2016 12:43 PM EST SPECIMEN TO PATHOLOGY Routine 03/20/2016 12:43 PM EST SPECIMEN TO PATHOLOGY Routine 03/20/2016 12:43 PM EST SPECIMEN TO PATHOLOGY Routine 03/20/2016 12:43 PM EST COLONOSCOPY Routine 03/20/2016 11:32 AM EST UPPER GI ENDOSCOPY Routine 03/20/2016 11 :31 AM EST COLONOSCOPY FLEXIBLE, WITH BX (WRVU 3.56) 03/20/2016 11:25 AM EST 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 . ?Surgical Pathology DIAGNOSIS A - 29 cm, biopsy: Farrell 's esophagus, negative for dysplasia. B - 31 cm, biopsy: Farrell 's esophagus, negative for dysplasia. C - 33 cm, biopsy: Farrell 's esophagus, negative for dysplasia. D - 35 cm, biopsy: Farrell 's esophagus, negative for dysplasia. E - Proximal esophagus, lesion, biopsy: Fragments of gastric (cardiac and fundic type) mucosa, negative for intestinal metaplasia and dysplasia (see discussion). Fragments of esophageal squamous mucosa within normal limits. F - Rectum, polypectomy: Hyperplastic polyp. Electronically signed by: ??Jeniffer Hill MD Verified: ??03/24/2016 ?Pathologist DISCUSSION Part E: Per endoscopic report, ?? a 1 cm of nodularity was found in the upper third of the esophagus and biopsied, therefore, gastric heterotropia is in the differential diagnosis. CLINICAL INFORMATION Specimen Submitted: A - 29 CM B - 31 CM C - 33 CM D - 35 CM E - Proximal esophageal lesion F - Rectal Polyp Clinical History: Farrell 's esophagus Clinical Diagnosis: same SPECIMEN PROCESSING A - Labeled/Fixative : 29 cm, formalin. Quantity/Size: Multiple, ranging from 0.1 cm to 0.6 cm. Tissue Description: Soft, kirby-white tissue. Sections/Process ing: (T2) B - Labeled/Fixative : 31 cm, formalin. Quantity/Size: Two, 0.3 cm and 0.5 cm. Tissue Description: Soft, kirby-white tissue. Sections/Process ing: (T1) . SPECIMEN PROCESSING C - Labeled/Fixative : 33 cm, formalin. Quantity/Size: Two, 0.3 cm and 0.5 cm. Tissue Description: Soft, kirby-pink tissue. Sections/Process ing: (T1) D - Labeled/Fixative : 35 cm, formalin. Quantity/Size: Two, 0.2 cm and 0.3 cm. Tissue Description: Soft, kirby-pink tissue. Sections/Process ing: (T1) E - Labeled/Fixative : Proximal esophageal lesion, formalin. Quantity/Size: Multiple, ranging from less than 0.1 cm to 0.2 cm. Tissue Description: Soft, kirby-white tissue. Sections/Process ing: (T3) F - Labeled/Fixative : Rectal polyp, formalin. Quantity/Size: Three, ranging from 0.2 cm from 0.4 cm. Tissue Description: Soft, kirby-pink tissue. Sections/Process ing: (T1) ??pteers 03/24/2016 5:02 PM EST [facility] 03/20/2016 12:4 3 PM EST David Dejesus MD PATHOLOGY/CYTOLOGY ORDERABLES Performing Organization Address City/[facility] Co de Phone Number [facility] [place] [address] * Specimen to Pathology (surgical or derm) (03/20/2016 12:43 PM EST) AP Specimen 03/20/2016 12:4 3 PM EST 03/20/2016 12:43 PM EST Narrative [facility] - 03/20/2016 12:43 PM EST Specimen requisition ordered. ??Separate Pathology report to follow David Dejesus MD PATHOLOGY/CYTOLOGY ORDERABLES Performing Organization Address City/[facility]/ZIP Co de Phone Number [facility] [place] [address] * Specimen to Pathology (surgical or derm) (03/20/2016 12:43 PM EST) AP Specimen 03/20/2016 12:4 3 PM EST 03/20/2016 12:43 PM EST Narrative [facility] - 03/20/2016 12:43 PM EST Specimen requisition ordered. ??Separate Pathology report to follow David Dejesus MD PATHOLOGY/[place] [address] * Specimen to Pathology (surgical or derm) (03/20/2016 12:43 PM EST) AP Specimen 03/20/2016 12:4 3 PM EST 03/20/2016 12:43 PM EST Narrative [facility] - 03/20/2016 12:43 PM EST Specimen requisition ordered. ??Separate Pathology report to follow David Dejesus MD PATHOLOGY/CYTOLOGY ORDERABLES Performing Organization Address [facility]/[place] [address] * Specimen to Pathology (surgical or derm) (03/20/2016 12:43 PM EST) AP Specimen 03/20/2016 12:4 3 PM EST 03/20/2016 12:43 PM EST Narrative [facility] - 03/20/2016 12:43 PM EST Specimen requisition ordered. ??Separate Pathology report to follow David Dejesus MD PATHOLOGY/CYTOLOGY ORDERABLES Performing Organization Address City/[facility]/[place] [address] * Specimen to Pathology (surgical or derm) (03/20/2016 12:43 PM EST) AP Specimen 03/20/2016 12:4 3 PM EST 03/20/2016 12:43 PM EST Narrative [facility] - 03/20/2016 12:43 PM EST Specimen requisition ordered. ??Separate Pathology report to follow David Dejesus MD PATHOLOGY/[place] [address] * Specimen to Pathology (surgical or derm) (03/20/2016 12:43 PM EST) AP Specimen 03/20/2016 12:4 3 PM EST 03/20/2016 12:43 PM EST Narrative [facility] - 03/20/2016 12:43 PM EST Specimen requisition ordered. ??Separate Pathology report to follow David Dejesus MD PATHOLOGY/CYTOLOGY ORDERABLES Performing Organization Address City/State/[facility] Co de Phone Number [facility] [place] [address] * COLONOSCOPY (03/20/2016 11:32 AM EST) COLONOSCOPY [facility] Endoscopy Procedure Date: 03/20/2016 11:32 AM ? Patient Name: Jennifer Irving ? Date of : 1960 ? Age: 55 ? Order #: [id number] ? Instrument Name: [id number] ? Procedure: ? Colonoscopy Indications: ? Screening for colorectal malignant ? neoplasm Providers: ? David Dejesus MD, Geronimo Joyner ? MD Valerie, Tapan Chong RN, ? Theodora Farrell, Scientist Propagator Referring : ?David Blue MD Medicines: ? Monitored Anesthesia Care Complications: ? [...] and under direct visualization, ? advanced to terminal ileum. Careful ? inspection was made as the ? colonoscope was withdrawn. The ? colonoscopy was performed without ? difficulty. The patient tolerated the ? procedure well. The quality of the ? bowel preparation was good. ? Findings: ? The perianal and digital rectal examinations were ? normal. There were grade I rectal hemorrhoids. ? Several 2-4 mm hyperplastic-appea ring polyps were ? found in the rectum. The polyps were sessile. The ? largest polyp (4 mm) was removed with a cold snare. ? Resection and retrieval were complete. ? The terminal ileum appeared normal. ? Impression: ?- Hyperplastic polyps in the rectum Recommendation: ?- Await pathology results and ? surveillance will depend on the ? pathology ? Attending Participation: ? I personally performed the entire procedure. ? ___ David Dejesus MD 03/20/2016 12:38:55 PM This report has been signed electronically. Number of Addenda: 0 Note Initiated On: 03/20/2016 11:32 AM [facility] 03/20/2016 11:3 2 AM EST David Blue MD GENERAL SURGICAL ORD ERABLES [facility] * UPPER GI ENDOSCOPY (03/20/2016 11:31 AM EST) UPPER GI ENDOSCOPY [facility] Endoscopy Procedure Date: 03/20/2016 11:31 AM ? Patient Name: Jennifer Irving ? Date of : 1960 ? Age: 55 ? Order #: [id number] ? Instrument Name: [id number] ? Procedure: ? Upper GI endoscopy Indications: ? Follow-up of Farrell's esophagus, ? Surveillance for malignancy due to ? 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 David Dejesus MD, Geronimo Joyner ? MD Valerie, Eligio Sadler RN, Valerie ? Lindsey Blanchard MD: ?David Blue MD Medicines: ? Monitored Anesthesia Care Complications: ? No immediate complications. Procedure: ? Pre-Anesthesia Assessment: ? - Prior to the procedure, a History ? and Physical was performed, and ? patient medications, allergies and ? sensitivities were reviewed. The ? patient's tolerance of previous ? anesthesia was reviewed. ? - The risks and benefits of the ? procedure and the sedation options ? and risks were discussed with the ? patient. All questions were answered ? and informed consent was obtained. ? - Patient identification and proposed ? procedure were verified prior to the ? procedure by the physician. The ? procedure was verified in the ? pre-procedure area. ? - Pre-procedure physical examination ? revealed no contraindications to ? sedation. ? - ASA Grade Assessment: II - A ? patient with mild systemic disease. ? - After reviewing the risks and ? benefits, the patient was deemed in ? satisfactory condition to undergo the ? procedure. ? - Monitored anesthesia care under the ? supervision of a DIGITAL PRODUCTION ARTIST was determined ? to be medically necessary for this ? procedure based on patient's anxiety. ? The procedure, indications, benefits, ? risks and alternatives were explained ? to the patient. Specifically ? discussed were potential ? complications including, but not ? limited to, bleeding, perforation, ? infection, missing a cancer, and ? adverse medication reactions. The ? Endoscope was introduced through the ? mouth, and advanced to the second ? part of duodenum. The patient ? tolerated the procedure well. The ? upper GI endoscopy was accomplished ? without difficulty. The patient ? tolerated the procedure well. ? Findings: ? The examined duodenum was normal. ? The entire examined stomach was normal. ? The esophagus and gastroesophageal junction were ? examined with white light. There were esophageal ? mucosal changes consistent with long-segment ? Farrell's esophagus. These changes involved the ? mucosa extending to the Z-line (36 cm from the ? incisors ). Circumferential salmon-colored mucosa was ? present at 35 cm to 29cm. The maximum longitudinal ? extent of these esophageal mucosal changes was 6 cm ? in length. Mucosa was biopsied with a cold forceps ? for histology in 4 quadrants at intervals of 2 cm . A ? total of 4 specimen bottles were sent to pathology. ? Mucosal changes characterized by 1 cm of nodularity ? were found in the upper third of the esophagus. This ? was biopsied with a cold forceps for histology ? multiple times. ? The oropharynx was normal. ? Impression: ?- Normal examined duodenum. ? - Normal stomach. ? - Esophageal mucosal changes ? consistent with long-segment ? Farrell's esophagus. Biopsied. ? - Nodular mucosa in the esophagus. ? Biopsied. ? - Normal oropharynx. Recommendation: ?- Discharge patient to home ? (ambulatory). ? - Resume previous diet. ? - Continue present medications. ? - Await pathology results. ? - Return to referring physician. ? Attending Participation: ? I personally performed the entire procedure. ? _ David Dejesus MD 03/20/2016 5:19:44 PM This report has been signed electronically. Number of Addenda: 0 Note Initiated On: 03/20/2016 11:31 AM [facility] 03/20/2016 11:3 1 AM EST David Blue MD GENERAL SURGICAL ORD ERABLES Performing Organization Address [facility] de Phone Number [facility] * (ABNORMAL) POCT Glucose (03/20/2016 10:54 AM EST) POC Glucose 243(H) 65 - 199 mg/dL [facility] Comment: Supplemental ranges: <140 mg/dL before meals <180 mg/dL all other times of the day Blood specimen (specimen) 03/20/2016 10:54 AM EST 03/20/2016 10:54 AM EST David Dejesus MD POINT OF CARE TEST ORDERABLES Performing Organization Address [facility]/ZIP Co de Phone Number [facility] [place] [address] * (ABNORMAL) POCT Fingerstick Glucose (03/20/2016) POC Glucose 243(A) 60 - 199 mg/dl 03/20/2016 David Dejesus MD POINT OF CARE TEST ORDERABLES documented in this encounter Visit Diagnoses Not on filedocumented in this encounter Administered Medications Inactive Administered Medications - up to 3 most recent administrations Medication Order MAR Action Action Date Dose Rate Site lactated ringers infusion 100 mL/hr, Intravenous, CONTINUOUS, Starting on Wed03/20/16 at 1115, Until Wed03/20/16 at 1305, Endoscopy (Day of Procedure) New Bag 03/20/2016 11:19 AM EST New Bag 03/20/2016 11:15 AM EST 100 mL/hr 100 mL/hr documented in this encounter Active and Recently Administered Medications Times are shown in EST. Continuous Medication Order 03/18/2016 03/19/2016 03/20/2016 lactated ringers infusion (CANCELED) 100 mL/hr, Intravenous, CONTINUOUS, Starting on Wed03/20/16 at 1115, Until Wed03/20/16 at 1305, Endoscopy (Day of Procedure) 1115 (New Bag - Prov ider: Susy Appiah RN)1119 (New Bag - Provider: Geronimo Del Toro CRNA)1136 (Anesthesia Volume Adjustment - Provider: Geronimo Del Toro CRNA)1218 (Anesthesia Volume Adjustment - Provider: Geronimo Del Toro CRNA) documented in this encounter Care Teams Oyster Fisherman Relationship Specialty Start Date End Date David Blue MD [address] [place] [address] PCP - General 04/01/10 02/02/19 documented as of this encounter
--- OUTSIDE RECORDS SUMMARY | 2023-12-03 15:00 | XMS_ITS | Encounter Summary ---
Author Organization Formerly [facility] [place] [address] Care Team Providers Care Gear Cutting Machine Set Up Operator Name Role Phone David Blue MD Primary Care Provider [phone] Encounter Details Date Type Department Care Team (Late st Contact Info) Description 09/23/2016 Ancillary Procedure [place] [phone] Ana Gillespie APRN [address] [place], [place] [id number] Social History Tobacco Use Types Packs/Day Years [...] 1:00 PM EDT Appointment [place] [phone] 12/07/2023 2:00 PM EDT Office [place] [address] Geronimo Mojica MD [facility] [place] [address] 12/27/2023 11:30 AM EDT Office [place] [address] Noe Cuenca MD [facility] [place] [address] Scheduled Procedures Name Priority Associated Diagnoses Date/Ti me EGD, UPPER GI ENDOSCOPY (WRV U 2.09) Peptic stricture of esophagus documented as of this encounter Procedures Procedure Name Priority Date/Time Associated Diagnosis Comments FILM LIBRARY STORAGE ONLY MAMMO Routine 09/23/2016 12:00 AM EDT documented in this encounter Results * Film Library- Storage Only Mammo (09/23/2016 12:00 AM EDT) Narrative [facility] - 02/13/2019 8:42 AM EDT This exam is auto-finalizing. It's purpose is for storage only. Ana Gillespie APRN IMG FILM LIBRARY ORD ERABLES [place], [place] documented in this encounter Visit Diagnoses Not on filedocumented in this encounter Care Teams Gear Cutting Machine Set Up Operator Relationship Specialty Start Date End Date David Blue MD [address] [place] [address] PCP - General 04/01/10 02/02/19 documented as of this encounter
--- OUTSIDE RECORDS SUMMARY | 2023-12-03 15:00 | XMS_ITS | Encounter Summary ---
Author Organization On License [facility] Address [facility] [place] [address] Care Team Providers Care Pinking Sewing Machine Operator Name Role Phone David Blue MD Primary Care Provider [phone] Encounter Details Date Type Department Care Team (Latest Contact Info) Description 11/22/2018 10:02 AM EDT - 11/22/2018 1:36 PM EDT Hospital En[place] [address] David Dejesus MD [facility] [place] [address] Discharge Disposition: Home Social History Tobacco Use [...] Sign Reading Time Taken Comments Blood Pressure 135/62 11/22/2018 1:20 PM EDT Pulse 67 11/22/2018 12:50 PM EDT Temperature 36.5 ??C (97.7 ??F) 11/22/2018 10:46 AM E DT Respiratory Rate - - Oxygen Saturation 95% 11/22/2018 1:30 PM EDT Inhaled Oxygen Concentration - - Weight 80.3 kg (177 lb) 11/22/2018 10:46 AM EDT Height 156.2 cm (5' 1.5) 11/22/2018 10:46 AM ED T Body Mass Index 32.9 11/22/2018 10:46 AM EDT documented in this encounter Discharge Instructions * Discharge Instructions* Onelia Benítez, RN - 11/22/2018 12:52 PM EDT UPPER GI ENDOSCOPY WHAT TO EXPECT AFTER THE PROCEDURE After the test you may feel a little more gassy or bloated than usual, this is normal. ACTIVITY Because of the sedation that you received Your judgement and reaction time are affected ?? Go home and rest quietly for the remainder of the day. You may resume your normal activities tomorrow. ?? Change from one position to the next slowly. You may lose your balance unexpectedly Be careful on stairs, as you may be unsteady on your feet. FOR THE NEXT 24 HRS ?? DO NOT DRIVE OR OPERATE ANY MACHINERY ?? DO NOT DRINK ALCOHOLIC BEVERAGES ?? DO NOT SIGN LEGAL DOCUMENTS ?? If you are a smoker: DO NOT SMOKE WHILE YOU ARE ALONE Diet ?? Start by eating small portions of foods that ordinarily will not upset your stomach. Be gentle with what you choose to start with. ?? Drink plenty of fluids ( unless otherwise [...] better as expected. Wednesday-Wednesday Same Day Endo [phone] 7a-8p Otherwise contact [phone] and ask to speak to the counter intelligence technician irrigationist Follow-up care is a fam part of [...] meter kit. 1 each 0 12/14/2014 Insulin Antelope, Disposable, (BD INSULIN PEN NEEDLE UF MINI) 31 x /16 NeedleIndications:Di abetes mellitus type 2, uncontrolled 1 Device by Misc.(Non-Drug; Combo Route) route 3 times daily as needed. 100 each 11 12/13/2014 pantoprazole (PROTONIX) 40 mg Tablet, Delayed Release (E.C.) Take 1 tablet by mouth 2 times daily. 180 tablet 3 09/26/2018 11/13/2019 esomeprazole (NEXIUM) 40 mg Capsule, Delayed Release(E.C.) [...] as of this encounter H&P Notes * Natalia Street MD - 11/22/2018 11:19 AM EDT Patient Name: Jennifer Irving Patient Age: 58 y.o. Birthdate: 1960 Admit date: 11/22/2018 Attending Physician: David Dejesus MD Gastroenterology and Hepatology Pre-Procedure History and Physical Exam Procedure: EGD: Indication: h/o Farrell's esophagus, need for surveillance. Patient denies dysphagia. Patient Active Problem List Diagnosis Code ??? GERD (gastroesophageal reflux disease) K21.9 ??? Farrell's esophagus K22.70 ??? T2DM (type 2 diabetes mellitus) E11.9 ??? BMI 37.0-37.9, adult Z68.37 EXAM: HEENT: Airway examined, oropharynx clear Mallampati Score: II (soft palate, uvula, fauces visible) LUNGS: Clear to auscultation HEART: Regular rate and rhythm, normal S1, S2 ABDOMEN: Normal bowel sounds, soft, non tender, non distended, A/P Proceed with the planned endoscopic procedure. ASA 2 - Patient with mild systemic disease with no functional limitations Sedation Plan: anesthesia Risks and benefits of the procedure explained to the patient. Consent signed. Natalia Street MD Advanced Endoscopy Fellow Gastroenterology documented in this encounter Plan of Treatment Upcoming Encounters Date Type Department Care Team (Late st Contact Info) Description 12/07/2023 1:00 PM EDT App[place] [address] 12/07/2023 2:00 PM EDT Office [place] [phone] Geronimo Mojica MD [facility] [place] [address] 12/27/2023 11:30 AM EDT Office Visit Pulmonology at [facility] [place] [phone] Noe Cuenca MD [facility] [place] [address] Scheduled Procedures Name Priority Associated Diagnoses Date/Ti me EGD, UPPER GI ENDOSCOPY (WRV U 2.09) Peptic stricture of esophagus documented as of this encounter Procedures Procedure Name Priority Date/Time Associated Diagnosis Comments SPECIMEN TO PATHOLOGY Routine 11/22/2018 12:43 PM EDT SURGICAL PATHOLOGY REPORT Routine 11/22/2018 12:34 PM EDT SPECIMEN TO PATHOLOGY Routine 11/22/2018 12:34 PM EDT SPECIMEN TO PATHOLOGY Routine 11/22/2018 12:34 PM EDT SPECIMEN TO PATHOLOGY Routine 11/22/2018 12:34 PM EDT SPECIMEN TO PATHOLOGY Routine 11/22/2018 12:34 PM EDT EGD WITH BIOPSY (WRVU 2.39) 11/22/2018 12:20 PM EDT Farrell's esophagus proclear UPPER GI ENDOSCOPY Routine 11/22/2018 12 :12 PM EDT POCT GLUCOSE Routine 11/22/2018 10:58 AM EDT documented in this encounter Results * Specimen to Pathology (11/22/2018 12:43 PM EDT) AP Specimen 11/22/2018 12:4 3 PM EDT 11/22/2018 12:43 PM EDT Narrative [facility] - 11/22/2018 12:43 PM EDT Specimen requisition ordered. ??Separate Pathology report to follow David Dejesus MD PATHOLOGY/CYTOLOGY ORDERABLES [facility] [place] [address] * Surgical Pathology Report (11/22/2018 12:34 PM EDT) FINAL DIAGNOSIS (AP) [id number] ? Location: 4T; EA06; A The signing pathologist has (i) examined the relevant preparation(s) for the specimen(s) and (ii) rendered or confirmed the diagnosis(es). . ?Surgical Pathology DIAGNOSIS A - At 34, biopsy: - Farrell's esophagus, negative for dysplasia. B - At 32, biopsy: - Farrell's esophagus, negative for dysplasia. C - At 30, biopsy: - Farrell's esophagus, negative for dysplasia. D - At 28, biopsy: - Farrell's esophagus, negative for dysplasia. E - At 26, biopsy: - Farrell's esophagus, negative for dysplasia. CR-PX Electronically signed by: ??Chinmay Nguyen MD Verified: ??11/23/2018 ?Pathologist Performed at: ??-[facility] [place] [facility] [place], [place], [place] CLINICAL INFORMATION Specimen Submitted: A - Bx's @ 34 B - Bx's @ 32 C - Bx's @ 30 D - Bx's @ 28 E - Bx's @ 26 Clinical History and Diagnosis: 58-year-old female with history of Farrell's SPECIMEN PROCESSING A - Labeled/Fixativ e: BX at 34, formalin. Quantity/Size: Four, averaging 0.2 cm. Tissue Description: Soft, red-kirby tissues. Sections/Proces sing: Submitted en toto ??in 1 cassette labeled A1. B - Labeled/Fixativ e: Biopsies at 32, formalin. Quantity/Size: Four, ranging 0.1-0.4 cm. Tissue Description: Soft, kirby tissues. Sections/Proces sing: Submitted en toto ??in 1 cassette labeled B1. C - Labeled/Fixativ e: Biopsies at 30, formalin. Quantity/Size: Two, 0.2 cm. Tissue Description: Soft, red-kirby tissues. Sections/Proces sing: Submitted en toto ??in 1 cassette labeled C1. D - Labeled/Fixativ e: Biopsies at 28, formalin. Quantity/Size: Three, averaging 0.3 cm. . SPECIMEN PROCESSING Tissue Description: Soft, kirby tissues. Sections/Proces sing: Submitted en toto ??in 1 cassette labeled D1. E - Labeled/Fixativ e: BX at 26, formalin. Quantity/Size: Four, ranging 0.1-0.4 cm. Tissue Description: Soft, kirby tissues. Sections/Proces sing: Submitted en toto ??in 1 cassette labeled E1. ??shb 11/23/2018 2:35 PM EDT [facility] 11/22/2018 12:3 4 PM EDT David Dejesus MD PATHOLOGY/CYTOLOGY ORDERABLES [facility] [place] [address] * Specimen to Pathology (11/22/2018 12:34 PM EDT) AP Specimen 11/22/2018 12:3 4 PM EDT 11/22/2018 12:34 PM EDT Narrative [facility] - 11/22/2018 12:34 PM EDT Specimen requisition ordered. ??Separate Pathology report to follow David Dejesus MD PATHOLOGY/CYTOLOGY ORDERABLES [facility] [place] [address] * Specimen to Pathology (11/22/2018 12:34 PM EDT) AP Specimen 11/22/2018 12:3 4 PM EDT 11/22/2018 12:34 PM EDT Narrative [facility] - 11/22/2018 12:34 PM EDT Specimen requisition ordered. ??Separate Pathology report to follow David Dejesus MD PATHOLOGY/CYTOLOGY ORDERABLES Performing Organization Address [facility] [place] [address] * Specimen to Pathology (11/22/2018 12:34 PM EDT) AP Specimen 11/22/2018 12:3 4 PM EDT 11/22/2018 12:34 PM EDT Narrative [facility] - 11/22/2018 12:34 PM EDT Specimen requisition ordered. ??Separate Pathology report to follow David Dejesus MD PATHOLOGY/CYTOLOGY ORDERABLES Performing Organization Address [facility] [place] [address] * Specimen to Pathology (11/22/2018 12:34 PM EDT) AP Specimen 11/22/2018 12:3 4 PM EDT 11/22/2018 12:34 PM EDT Narrative [facility] - 11/22/2018 12:34 PM EDT Specimen requisition ordered. ??Separate Pathology report to follow David Dejesus MD PATHOLOGY/CYTOLOGY ORDERABLES Performing Organization Address [facility] [place] [address] * UPPER GI ENDOSCOPY (11/22/2018 12:12 PM EDT) UPPER GI ENDOSCOPY [facility] Endoscopy Procedure Date: 11/22/2018 12:12 PM ? Patient Name: Jennifer Irving ? Date of : 1960 ? Age: 58 ? Order #: [id number] ? Instrument Name: [id number] LOANER ? Procedure: ? Upper GI endoscopy Indications: ? Surveillance for malignancy due to ? 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 David Dejesus MD, Simba ? ERI Augustin, Mercedes Quintanilla Referring MD: ?David Blue MD Medicines: ? Monitored [...] ? antiplatelet agents. ASA Grade ? Assessment: II - A patient with mild ? systemic disease. After reviewing the ? risks and benefits, the patient was ? deemed in satisfactory condition to ? undergo the procedure. The anesthesia ? plan was to use monitored anesthesia ? care (MAC). Immediately prior to ? administration of medications, the ? patient was re-assessed for adequacy ? to receive sedatives. The heart rate, ? respiratory rate, [...] Findings: ? The esophagus was normal until 27 cm. There was LA ? Class B esophagitis present from 27-28 cm. Beginning ? at 28 cm there was long-segment Farrell's esophagus ? to the GE junction at 34 cm. There was a hiatal ? hernia from 34-36 cm. There was no focal nodularity ? present seen on white light or NBI. 4 quadrant ? biopsies were taken every 2 cm in four jars (34, 32, ? 30, 28 cm) ? The stomach was normal. ? The examined duodenum was normal with the exception ? of mild duodenitis. ? Moderate Sedation: ? Not applicable - See Anesthesia documentation Impression: ?- Long segment Farrell's esophagus ? with associated La Class B ? esophagitis - Farrell's biopsies taken Recommendation: ?- Await pathology results ? - Switch PPI to 30 minutes before ? meals ? Attending Participation: ? I was present and participated during the entire ? procedure, including non-fam portions. ? ___ David Dejesus MD 11/22/2018 12:37:51 PM This report has been signed electronically. Number of Addenda: 0 Note Initiated On: 11/22/2018 12:12 PM PROVATION 11/22/2018 12:1 2 PM EDT David Blue MD GENERAL SURGICAL ORD ERABLES Performing Organization Address City/[facility] Co de Phone Number PROVATION * (ABNORMAL) POCT Glucose (11/22/2018 10:58 AM EDT) POC Glucose 277(H) 65 - 199 mg/dL [facility] Comment: Supplemental ranges: <140 mg/dL before meals <180 mg/dL all other times of the day Blood specimen (specimen) 11/22/2018 10:58 AM EDT 11/22/2018 10:58 AM EDT David Djeesus MD POINT OF CARE TEST ORDERABLES Performing Organization Address [facility] Co de Phone Number [facility] [place] [address] documented in this encounter Visit Diagnoses Not on filedocumented in this encounter Administered Medications Inactive Administered Medications - up to 3 most recent administrations Medication Order MAR Action Action Date Dose Rate Site lactated ringers infusion 100 mL/hr, Intravenous, CONTINUOUS, Starting on Wed11/22/18 at 1100, Until Wed11/22/18 at 1329, Endoscopy (Day of Procedure) New Bag 11/22/2018 12:20 PM EDT New Bag 11/22/2018 11:01 AM EDT 100 mL/hr 100 mL/hr documented in this encounter Active and Recently Administered Medications Times are shown in EDT. Continuous Medication Order 11/20/2018 11/21/2018 11/22/2018 lactated ringers infusion (CANCELED) 100 mL/hr, Intravenous, CONTINUOUS, Starting on Wed11/22/18 at 1100, Until Wed11/22/18 at 1329, Endoscopy (Day of Procedure) 1101 (New Bag - Prov ider: Dottie Cintron RN)1220 (New Bag - Provider: Shanell Gotti CRNA)1243 (Anesthesia Volume Adjustment - Provider: Shanell Gotti CRNA) documented in this encounter Care Teams Pinking Sewing Machine Operator Relationship Specialty Start Date End Date David Blue MD [address] [place] [address] PCP - General 04/01/10 02/02/19 documented as of this encounter
--- OUTSIDE RECORDS SUMMARY | 2023-12-03 15:00 | XMS_ITS | Encounter Summary ---
Author Organization [facility] [place] [address] Care Team Providers Care Credit Officer Name Role Phone David Blue MD Primary Care Provider [phone] Reason for Visit * Reason Onset Date Comments Prior Authorization 12/17/2014 Encounter Details Date Type Department Care Team (Late st Contact Info) Description 12/17/2014 Telephone [place] [phone] Radha Urena Prior Authorization Social History Tobacco Use Types Packs/Day Years Used Date Smoking Tobacco: Every Day Smokeless Tobacco: Never Sex and Gender Information Value Date Recorded Sex Assigned at Not on file Gender Identity Not on file Sexual Orientation Not on file documented as of this encounter Miscellaneous Notes * Telephone Encounter - Radha Urena - 12/17/2014 12:44 PM EDT Medication Prior Authorization SUSANNE Medication name/dose/directions: TANZEUM - Inject 30 mg subcutaneously once a week. Rationale for request: TYPE II DM Health plan: [place] Authorizing medicare sales representative name: BRYANT Faxed to health plan on: 12/17/14 Health plan decision: APPROVED Quantity approved: 4 FOR 30 DAYS Authorization number: [id number] Start date: 12/20/14 End date: 12/21/15 Patient notified? Pharmacy notified? documented in this encounter Plan of Treatment Upcoming Encounters Date Type Department Care Team (Late st Contact Info) Description 12/07/2023 1:00 PM EDT Appointment [place] [address] 12/07/2023 2:00 PM EDT Office [place] [address] Geronimo Mojica MD [facility] [place] [address] 12/27/2023 11:30 AM EDT Office [place] [phone] Noe Cuenca MD [facility] [place] [address] Scheduled Procedures Name Priority Associated Diagnoses Date/Ti me EGD, UPPER GI ENDOSCOPY (WRV U 2.09) Peptic stricture of esophagus documented as of this encounter Visit Diagnoses Not on filedocumented in this encounter Care Teams Credit Officer Relationship Specialty Start Date End Date David Blue MD [address] [place] [address] PCP - General 04/01/10 02/02/19 documented as of this encounter
--- OUTSIDE RECORDS SUMMARY | 2023-12-03 15:00 | XMS_ITS | Encounter Summary ---
Author Organization [facility] Address [facility] [place] [address] Care Team Providers Care Loading Dock Helper Name Role Phone David Blue MD Primary Care Provider [phone] Encounter Details Date Type Department Care Team (Late st Contact Info) Description 12/14/2014 Orders Only Endocrinology at [place] [phone] Dean Caban MD [facility] [place] [address] Type 2 diabetes mellitus, uncontrolled Social History Tobacco Use Types Packs/Day Years [...] 12/07/2023 1:00 PM EDT Appointment [place] [address] 12/07/2023 2:00 PM EDT Office [place] [address] Geronimo Mojica MD [facility] [place] [address] 12/27/2023 11:30 AM EDT Office [place] [address] Noe Cuenca MD [facility] [place] [address] Scheduled Procedures Name Priority Associated Diagnoses Date/Ti me EGD, UPPER GI ENDOSCOPY (WRV U 2.09) Peptic stricture of esophagus documented as of this encounter Visit Diagnoses Diagnosis Type 2 diabetes mellitus, uncontrolled Type II or unspecified type diabetes mellitus without mention of complication, uncontrolled documented in this encounter Care Teams Loading Dock Helper Relationship Specialty Start Date End Date David Blue MD [address] [place] [address] PCP - General 04/01/10 02/02/19 documented as of this encounter
--- OUTSIDE RECORDS SUMMARY | 2023-12-03 15:00 | XMS_ITS | Encounter Summary ---
Author Organization [facility] [place] [address] Care Team Providers Care Special Duty Nurse Name Role Phone David Blue MD Primary Care Provider [phone] Reason for Visit * Reason Onset Date Comments Prior Authorization 03/12/2016 Encounter Details Date Type Department Care Team (Late st Contact Info) Description 03/12/2016 Telephone G[facility]enterology at [facility] [place] [address] Francoise Vides CMA GASTROENTEROLOGY DEPT Prior Authorization Social History Tobacco Use Types Packs/Day Years Used Date Smoking Tobacco: Every Day Smokeless Tobacco: Never Sex and Gender Information Value Date Recorded Sex Assigned at Not on file Gender Identity Not on file Sexual Orientation Not on file documented as of this encounter Miscellaneous Notes * Telephone Encounter - Francoise Vides CMA - 03/19/2016 11:41 AM EST I called the patient to ask her about the lapse in use of esomeprazole. The answered the phone, and said that she had stepped out. I asked if she could call me back so I can ask her about lapse. * Telephone Encounter - Francoise Vides CMA - 03/12/2016 4:28 PM EDT Called the patient to find out about her lapse in use of the esomeprazole. The number was no longerin service. documented in this encounter Plan of Treatment Upcoming Encounters Date Type Department Care Team (Late st Contact Info) Description 12/07/2023 1:00 PM EDT [place] [address] 12/07/2023 2:00 PM EDT Office [place] [phone] Geronimo Mojica MD [facility] [place] [address] 12/27/2023 11:30 AM EDT [place] [phone] Noe Cuenca MD [facility] [place] [address] Scheduled Procedures Name Priority Associated Diagnoses Date/Ti me EGD, UPPER GI ENDOSCOPY (WRV U 2.09) Peptic stricture of esophagus documented as of this encounter Visit Diagnoses Not on filedocumented in this encounter Care Teams Special Duty Nurse Relationship Specialty Start Date End Date David Blue MD [address] [place] [address] PCP - General 04/01/10 02/02/19 documented as of this encounter
--- OUTSIDE RECORDS SUMMARY | 2023-12-03 15:00 | XMS_ITS | Encounter Summary ---
Author Organization [facility] Address [facility] [place] [address] Care Team Providers Care Cancellation Clerk Name Role Phone David Blue MD Primary Care Provider [phone] Reason for Visit * Auth/Cert Specialty Diagnoses / Procedures Referred By Esperanza rodríguez Referred To Contact Diagnoses three year surv for Farrell's esophagus last 04/03/14 Procedures PRO UPPER GI ENDOSCOPY, DIAGNOSTIC PRO COLONOSCOPY, DIAGNOSTIC EGD, UPPER GI ENDOSCOPY Referral ID Status Reason Start Date Expiration Date Visits Re quested Visits Authorized [id number] 1 1 Encounter Details Date Type Department Care Team (Late st Contact Info) Description 03/20/2016 11:00 AM EST - 03/20/2016 12:00 PM EST Surgery [place] [address] David Dejesus MD [facility] [place] [address] EGD WITH BIOPSY (WRVU 2.39) Social History [...] Sign Reading Time Taken Comments Blood Pressure 122/76 03/20/2016 10:44 AM EST Pulse 66 03/20/2016 10:44 AM EST Temperature - - Respiratory Rate 18 03/20/2016 10:44 AM EST Oxygen Saturation 18% 03/20/2016 10:44 AM EST Inhaled Oxygen Concentration - - [...] or concerns, please call us Wednesday-Wednesday Clinic [phone] 8a-5p Same Day Endo [phone] 7a-8p Nights and weekends contact [phone] and ask to speak to the senior care manager insect control inspector. Follow up care is a fam part [...] meter kit. 1 each 0 12/14/2014 Insulin [place], Disposable, (BD INSULIN PEN NEEDLE UF MINI) [...] 12/07/2023 1:00 PM EDT Appointment [place] [address] 12/07/2023 2:00 PM EDT Office [place] [address] Geronimo Mojica MD [facility] [place] [address] 12/27/2023 11:30 AM EDT Office Visit Pulmonology at [facility] [phone] Noe Cuenca MD [facility] [place] [address] Scheduled Procedures Name Priority Associated Diagnoses Date/Ti [...] three year surv for Farrell's esophagus last 11/25/14 POCT GLUCOSE Routine 03/20/2016 10:54 AM EST POCT FINGERSTICK GLUCOSE Routine 03/20/2016 documented in this encounter Results * Surgical Pathology Report (03/20/2016 12:43 PM EST) FINAL DIAGNOSIS (AP) [id number] ?Location: 4T; EA07; A The signing pathologist [...] Description: Soft, kirby-pink tissue. Sections/Process ing: (T1) ??peters 03/24/2016 5:[address] [facility] 03/20/2016 12:4 3 PM EST David Dejesus MD PATHOLOGY/CYTOLOGY ORDERABLES Performing Organization Address City/[facility] Co de Phone Number [facility] [place] [address] * Specimen to Pathology (surgical or derm) (03/20/2016 12:43 PM EST) AP Specimen 03/20/2016 12:4 3 PM EST 03/20/2016 12:[address] [facility] - 03/20/2016 12:43 PM EST Specimen requisition ordered. ??Separate Pathology report to follow David Dejesus MD PATHOLOGY/CYTOLOGY ORDERABLES Performing Organization Address [facility]/ZIP Co de Phone Number [facility] [place] [address] * Specimen to Pathology (surgical or derm) (03/20/2016 12:43 PM EST) AP Specimen 03/20/2016 12:4 3 PM EST 03/20/2016 12:[address] [facility] - 03/20/2016 12:43 PM EST Specimen requisition ordered. ??Separate Pathology report to follow David Dejesus MD PATHOLOGY/[place] [address] * Specimen to Pathology (surgical or derm) (03/20/2016 12:43 PM EST) AP Specimen 03/20/2016 12:4 3 PM EST 03/20/2016 12:[address] [facility] - 03/20/2016 12:43 PM EST Specimen requisition ordered. ??Separate Pathology report to follow David Dejesus MD PATHOLOGY/CYTOLOGY ORDERABLES Performing Organization Address [facility]/[place] [address] * Specimen to Pathology (surgical or derm) (03/20/2016 12:43 PM EST) AP Specimen 03/20/2016 12:4 3 PM EST 03/20/2016 12:[address] [facility] - 03/20/2016 12:43 PM EST Specimen requisition ordered. ??Separate Pathology report to follow David Dejesus MD PATHOLOGY/CYTOLOGY ORDERABLES Performing Organization Address City/[facility]/[place] [address] * Specimen to Pathology (surgical or derm) (03/20/2016 12:43 PM EST) AP Specimen 03/20/2016 12:4 3 PM EST 03/20/2016 12:[address] [facility] - 03/20/2016 12:43 PM EST Specimen requisition ordered. ??Separate Pathology report to follow David Dejesus MD PATHOLOGY/CYTOLOGY [place] [address] * Specimen to Pathology (surgical or derm) (03/20/2016 12:43 PM EST) AP Specimen 03/20/2016 12:4 3 PM EST 03/20/2016 12:[address] [facility] - 03/20/2016 12:43 PM EST Specimen requisition ordered. ??Separate Pathology report to follow David Dejesus MD PATHOLOGY/CYTOLOGY ORDERABLES Performing Organization Address [facility]/State/[facility] [place] [place] [address] * COLONOSCOPY (03/20/2016 11:32 AM EST) COLONOSCOPY [facility] Endoscopy Procedure Date: 03/20/2016 11:32 AM ? Patient Name: Jennifer Irving ? Date of : 1960 ? Age: 55 ? Order #: [id number] ? Instrument Name: [id number] ? Procedure: ? Colonoscopy Indications: ? Screening for colorectal malignant ? neoplasm Providers: ? David Dejesus MD, Geronimo Joyner ? MD Valerie, Tapan Chong RN, ? Theodora Farrell, Fruit Culler Referring : ?David Blue MD Medicines: ? [...] (03/20/2016 11:31 AM EST) UPPER GI ENDOSCOPY [facility] Endoscopy Procedure Date: 03/20/2016 11:31 AM ? Patient Name: Jennifer Irving ? Date of : 1960 ? Age: 55 ? Order #: [id number] ? Instrument Name: [id number] ? Procedure: ? Upper GI endoscopy Indications: [...] care under the ? supervision of a RV SERVICE TECHNICIAN was determined ? to be medically necessary [...] GENERAL SURGICAL ORD ERABLES Performing Organization Address [facility] de Phone Number [facility] * (ABNORMAL) POCT Glucose (03/20/2016 10:54 AM EST) POC Glucose 243(H) 65 - 199 mg/dL [facility] Comment: Supplemental ranges: <140 mg/dL before meals <180 mg/dL all other times of the day Blood specimen (specimen) 03/20/2016 10:54 AM EST 03/20/2016 10:54 AM EST David Dejesus MD POINT OF CARE TEST ORDERABLES [facility] [place] [address] * (ABNORMAL) POCT Fingerstick Glucose (03/20/2016) POC [...] Susy Appiah RN)1119 (New Bag - Provider: Geroinmo Del Toro CRNA)1136 (Anesthesia Volume Adjustment - Provider: Geronimo Del Toro CRNA)1218 (Anesthesia Volume Adjustment - Provider: Geronimo Del Toro CRNA) documented in this encounter Care Teams Cancellation Clerk Relationship Specialty Start Date End Date David Blue MD [address] [place] [address] PCP - General 04/01/10 02/02/19 documented as of this encounter
--- OUTSIDE RECORDS SUMMARY | 2023-12-03 15:00 | XMS_ITS | Encounter Summary ---
Author Organization [facility] Address [facility] [place] [address] Care Team Providers Care Specialized Developer Name Role Phone David Blue MD Primary Care Provider + [phone] Encounter Details Date Type Department Care Team (Late st Contact Info) Description 11/22/2018 12:20 PM EDT Anesthesia [place] [address] Keyana Short MD [facility] DR [place] [address] Alexandrea Wang CRNA [facility] [place] [address] Anesthesia Record Procedure Summary Procedure Name Responsible Anesthesiologist Anesthesia Start Time Anesthesia Stop Time EGD WITH BIOPSY (WRVU 2.39) (Trunk) Keyana Short MD 11/22/18 1220 11/22/18 1253 Events Date Time Event Comment 11/22/2018 1218 1220 AN Verify 1220 Start 1220 An Start Data 1223 Break/Relief In MARIA DE JESUS A [facility] C YR, PROBATION AND PATROL AGENT 1225 An Induction 1227 Anesthesia Ready 1228 Procedure Start 1244 an stop data 1253 Recovery or ICU Handoff Sayra ent care was transferred to the destination unit staff after review of the patient's medical history, current anesthetic/surgical status and plan, according to the Provider Handoff Checklist. 1253 Stop Meds Name Total IV Lidocaine 60 mg Propofol 60 mg Propofol INF 230.86 mg lactated ringers infusion 300 mL * Agents Name O2 Air N2O O2 Auxiliary Flowmeter 1 * Blood No blood administrations on file. Lines, Drains, and Airways Type Details Placement Removal (RETIRED) Peripheral IV Line - Single Lumen 11/22/18; 1100; basilic vein (medial side of arm), right; uwoo-kig-pltxuk catheter system; 20 gauge; Gertrudis Cintron RN; distraction, tolerated well, appears comfortable; 11/22/18; 1329 11/22/18 1100 by Dottie Cintron RN 11/22/18 1329 by Onelia Benítez RN documented in this encounter Social History [...] Postprocedure Evaluation - Keyana Short MD - 11/22/2018 2:12 PM EDT Department of Anesthesiology Post-procedure Note Patient: Jennifer Irving Procedure Summary Date: 11/22/18 Room / Location: [facility] ENDO 2 / [facility] ENDOSCOPY Anesthesia Start: 1220 Anesthesia Stop: 1253 Procedure: EGD WITH BIOPSY (WRVU 2.49) (N/A Trunk) Diagnosis: (Farrell's esophagus) (proclear) Surgeon: David Dejesus MD Responsible Provider: Keyana Short MD Anesthesia Type: MAC ASA Status: 2 All Anesthesia Providers: Anesthesiologist: Keyana Short MD PROBATION AND PATROL AGENT: Alexandrea Wang CRNA Vitals Value Taken Time BP 135/62 11/22/2018 1:20 PM Temp Pulse Resp SpO2 95 % 11/22/2018 1:30 PM Pain Level 0 11/22/2018 1:30 PM Patient Location: PACU/[facility] Level of Consciousness: Awake and [...] Preprocedure Evaluation - Keyana Short MD - 11/22/2018 12:15 PM EDT Pre-Anesthesia Evaluation for: Jennifer Irving a 58 y.o. female. Procedure(s): EGD, UPPER GI ENDOSCOPY Patient Active Problem List Diagnosis ??? BMI 37.0-37.9, adult ??? T2DM (type 2 diabetes mellitus) ??? GERD (gastroesophageal reflux disease) ??? Farrell's esophagus No past medical history on file. Past Surgical History: Procedure Laterality Date ??? PRO COLONOSCOPY, BIOPSY N/A 03/20/2016 COLONOSCOPY FLEXIBLE, WITH BX performed by David Dejesus MD at [facility] ENDOSCOPY ??? PRO UPPER GI ENDOSCOPY, BIOPSY N/A 04/03/2014 UPPER GASTROINTESTINAL ENDOSCOPY,WITH BIOPSY SINGLE OR MULTIPLE performed by David Dejesus MDat [facility] ENDOSCOPY ??? PRO UPPER GI ENDOSCOPY, BIOPSY N/A 03/20/2016 EGD WITH BIOPSY performed by David Dejesus MD at [facility] ENDOSCOPY ??? PRO UPPER GI ENDOSCOPY, DIAGNOSTIC N/A 04/03/2014 EGD, UPPER GI ENDOSCOPY performed by David Dejesus MD at [facility] ENDOSCOPY Social History Tobacco Use ??? Smoking status: Current Every Day Smoker Packs/day: 0.50 Years: 11.00 Pack years: 5.50 ??? Smokeless tobacco: Never Used Substance Use Topics ??? Alcohol use: Yes Comment: a couple times a month Social History Substance and Sexual Activity Drug Use No Allergies Allergen Reactions ??? Meperidine Hcl CIS - violently ill Medications: MAR and/or home medications have been reviewed. Physical Exam: Most Recent Vitals: 11/22/18 1046 BP: 137/79 Pulse: 58 Temp: 36.5 ??C (97.7 ??F) SpO2: 96% Body mass index is 32.9 kg/m??. Height: 156.2 cm (5' 1.5) Weight: 80.3 kg (177 lb) Airway Assessment: Mallampati: II TM distance: >3 FB Neck ROM: full Cardiovascular Assessment: cardiovascular exam normal Pulmonary Assessment: pulmonary exam normal Dental Assessment: Misc Assessment: Patient is wearing No contact(s). IV access: Peripheral line Anesthesia Plan: ASA 2 MAC, with a(n) intravenous induction 58 year old female for EGD NPO IDDM FS this morning 270 Farrell's GERD Smoker No problems with previous anesthesia Region - Other Informed Consent: Anesthetic plan and risks discussed with patient. PAT Clinic Note documented in this encounter Plan of Treatment Upcoming Encounters Date Type Department Care Team (Late st Contact Info) Description 12/07/2023 1:00 PM EDT Appointment [place] [phone] 12/07/2023 2:00 PM EDT Office [place] [phone] Geronimo Mojica MD [facility] [place] [address] 12/27/2023 11:30 AM EDT Office [place] [phone] Noe Cuenca MD [facility] [place] [address] Scheduled Procedures Name Priority Associated Diagnoses Date/Ti [...] 11:01 AM EDT 100 mL/hr 100 mL/hr lidocaine (PF) (XYLOCAINE) 100 mg/5 mL (2 %) injection PRN, Starting on Wed11/22/18 at 1225, Until Wed11/22/18 at 1253, Anesthesia Intra-op, Routine Given 11/22/2018 12:25 PM EDT 60 mg propofol (DIPRIVAN) 10 mg/mL bolus injection (Anesthesia) PRN, Starting on Wed11/22/18 at 1225, Until Wed11/22/18 at 1253, Anesthesia Intra-op Given 11/22/2018 12:25 PM EDT 60 mg propofol (DIPRIVAN) infusion CONTINUOUS PRN, Starting on Wed11/22/18 at 1225, Until Wed11/22/18 at 1253, Anesthesia Intra-op, Routine Rate/Dose Change 11/22/2018 12:35 PM EDT 175 mcg/kg/min 84.3 mL/hr New Bag 11/22/2018 12:25 PM EDT 200 mcg/kg/min 96.4 mL/ hr documented in this encounter Care Teams Specialized Developer Relationship Specialty Start Date End Date David Blue MD [address] [place] [address] PCP - General 04/01/10 02/02/19 documented as of this encounter
--- OUTSIDE RECORDS SUMMARY | 2023-12-03 15:00 | XMS_ITS | Encounter Summary ---
Author Organization [facility] Address [facility] [place] [address] Care Team Providers Care Air Brake Tester Name Role Phone David Blue MD Primary Care Provider + [phone] Reason for Visit * Reason Onset Date Comments Medication Refill 09/26/2018 Encounter Details Date Type Department Care Team (Late st Contact Info) Description 09/26/2018 Refill [place] [phone] Francoise Vides CMA GASTROENTEROLOGY DEPT Social History Tobacco Use Types Packs/Day Years [...] 12/07/2023 1:00 PM EDT Appointment [place] [address] 12/07/2023 2:00 PM EDT Office [place] [phone] Geronimo Mojica MD [facility] DR THORACIC SURGERY [place] [id number] 12/27/2023 11:30 AM EDT Office [place] [phone] Noe Cuenca MD [facility] [place] [address] Scheduled Procedures Name Priority Associated Diagnoses Date/Ti me EGD, UPPER GI ENDOSCOPY (WRV U 2.09) Peptic stricture of esophagus documented as of this encounter Visit Diagnoses Not on filedocumented in this encounter Care Teams Air Brake Tester Relationship Specialty Start Date End Date David Blue MD [address] [place] [address] PCP - General 04/01/10 02/02/19 documented as of this encounter
--- OUTSIDE RECORDS SUMMARY | 2023-12-03 15:00 | XMS_ITS | Encounter Summary ---
[place] [address] Care Team Providers Care Physics Faculty Member Name Role Phone David Blue MD Primary Care Provider + [phone] Reason for Visit * Reason Onset Date Comments Prior Authorization 02/26/2016 Encounter Details Date Type Department Care Team (Late st Contact Info) Description 02/26/2016 Telephone [place] [address] Francoise Vides CMA GASTROENTEROLOGY DEPT Prior Authorization Social History Tobacco Use Types Packs/Day Years Used Date Smoking Tobacco: Every Day Smokeless Tobacco: Never Sex and Gender Information Value Date Recorded Sex Assigned at Not on file Gender Identity Not on file Sexual Orientation Not on file documented as of this encounter Miscellaneous Notes * Telephone Encounter - Francoise Vides CMA - 02/26/2016 8:46 AM EDT Medication Prior Authorization 4L Gastroenterology / [place] [address] Subscriber Insurance: [place] medicaid Physician: David Dejesus Return Pharmacy: [facility] Medication Requested: Esomeprazole Strength: 40 mg Frequency: BID Disp.: 180 Refills: 3 Currently taking: yes Diagnosis for this medication: Farrell's esophagus ICD-10 code: K22.711 Prior medications trialed in this patient: Esomeprazole (2 capsule) 20 mg QD, pantoprazole, omeprazole Medication: Outcome/Adverse Reactions: treatment failure: treatment failure Decision: patient has a paid claim for once daily 12/26/2014. Need explanations for the reason for the lapse in usage. Tracking number/Case number/Reference number: [id number] Effective date: Start: End: documented in this encounter Plan of Treatment Upcoming Encounters Date Type Department Care Team (Late st Contact Info) Description 12/07/2023 1:00 PM EDT Appointment [place] [address] 12/07/2023 2:00 PM EDT Office Visit [place] [phone] Geronimo Mojica MD [facility] [place] [address] 12/27/2023 11:30 AM EDT Office [place] [address] Noe Cuenca MD [facility] [place] [address] Scheduled Procedures Name Priority Associated Diagnoses Date/Ti me EGD, UPPER GI ENDOSCOPY (WRV U 2.09) Peptic stricture of esophagus documented as of this encounter Visit Diagnoses Not on filedocumented in this encounter Care Teams Physics Faculty Member Relationship Specialty Start Date End Date David Blue MD [address] [place] [address] PCP - General 04/01/10 02/02/19 documented as of this encounter
--- OUTSIDE RECORDS SUMMARY | 2023-12-03 15:00 | XMS_ITS | Encounter Summary ---
Author Organization [facility] Address [facility] [place] [address] Care Team Providers Care Clinical Project Manager Name Role Phone David Blue MD Primary Care Provider + [phone] Reason for Visit * Auth/Cert Specialty Diagnoses / Procedures Referred By Esperanza rodríguez Referred To Contact Diagnoses three year surv for Farrell's esophagus last 04/03/14 Procedures PRO UPPER GI ENDOSCOPY, DIAGNOSTIC PRO COLONOSCOPY, DIAGNOSTIC EGD, UPPER GI ENDOSCOPY Referral ID Status Reason Start Date Expiration Date Visits Re quested Visits Authorized [id number] 1 1 Encounter Details Date Type Department Care Team (Late st Contact Info) Description 03/20/2016 11:24 AM EST Anesthesia [place] [address] Calli Jean MD [facility] [place] [address] Geronimo Del Toro, [address] [place] [address] Anesthesia Record Procedure Summary Procedure Name Responsible Anesthesiologist Anesthesia Start Time Anesthesia Stop Time EGD WITH BIOPSY (WRVU 2.39) (Trunk) Calli Jean MD 03/20/16 1124 03/20/16 1240 Events Date Time Event Comment 03/20/2016 1109 1124 AN Verify 1124 Start 1126 An Start Data 1130 An Induction 1131 Anesthesia Ready 1135 Procedure Start 1224 Procedure Stop 1227 an stop data 1239 Recovery or ICU Handoff Sayra ent care was transferred to the destination unit staff after review of the patient's medical history, current anesthetic/surgical status and plan, according to the Provider Handoff Checklist. VSS 1240 Stop Meds Name Total IV Lidocaine 50 mg Propofol 70 mg Propofol INF 851.4 mg lactated ringers infusion 600 mL * Agents Name O2 * Blood No blood administrations on file. Lines, Drains, and Airways Type Details Placement Removal (RETIRED) Peripheral IV Line - Single Lumen 03/20/16; 1058; metacarpal vein (top of hand), right; 22 gauge; 03/20/16; 1304 03/20/16 1058 by Susy Appiah RN 03/20/16 1304 by Nini Simpson RN documented in this encounter Social History [...] OR Notes * Anesthesia Postprocedure Evaluation - Calli Jean - 03/21/2016 9:50 AM EST [facility] Department of Anesthesiology Post-procedure Note Patient: Jennifer Irving Procedure Summary Date Anesthesia Start Anesthesia Stop Room / Location 03/20/16 1124 1240 [facility] / [facility] Procedure Diagnosis Surgeon Responsible Provider EGD WITH BIOPSY (N/A Trunk); COLONOSCOPY FLEXIBLE, WITH BX (N/A Trunk) (three year surv for Farrell's esophagus last 04/03/14) David Dejesus MD [place], [place], MD All Anesthesia Providers: Anesthesiologist: Calli Jean MD SCIENCE TUTOR: Geronimo Del Toro CRNA Last (1hr) Vitals: BP Temp Pulse Resp SpO2 Patient Location: PACU/[facility] Level of Consciousness: Awake and Alert Pain Management: Satisfactory Analgesia PONV: None Cardiovascular Status: At Baseline Respiratory Status: At Baseline Postoperative Fluid Status: Intravascular EUvolemia Possible Anesthetic Complications: NONE apparent at time of evaluation Final Primary Anesthesia Type: MAC (The anesthetic type performed was the same as planned.) Comments: * Anesthesia Preprocedure Evaluation - Calli Jean - 03/20/2016 10:42 AM EST Pre-Anesthesia Evaluation for: Jennifer Irving a 55 y.o. female. Procedure(s): EGD, UPPER GI ENDOSCOPY COLONOSCOPY, DIAGNOSTIC Patient Active Problem List Diagnosis ??? BMI 37.0-37.9, adult ??? T2DM (type 2 diabetes mellitus) ??? GERD (gastroesophageal reflux disease) ??? Farrell's esophagus No past medical history on file. Past Surgical History Procedure Laterality Date ??? Pro upper gi endoscopy, diagnostic N/A 04/03/2014 EGD, UPPER GI ENDOSCOPY performed by David Dejesus MD at [facility] ??? Pro upper gi endoscopy, biopsy N/A 04/03/2014 UPPER GASTROINTESTINAL ENDOSCOPY,WITH BIOPSY SINGLE OR MULTIPLE performed by David Dejesus MDat [facility] Social History Substance Use Topics ??? Smoking status: Current Every Day Smoker Packs/day: 1.00 Years: 11.00 ??? Smokeless tobacco: Never Used ??? Alcohol use Yes Comment: rarely History Drug Use No Allergies Allergen Reactions ??? Meperidine Hcl CIS - violently ill Medications: MAR and/or home medications have been reviewed. Physical Exam: There were no vitals filed for this visit. There is no height or weight on file to calculate BMI. Airway Assessment: Mallampati: II TM distance: >3 FB Neck ROM: full Cardiovascular Assessment: Pulmonary Assessment: Dental Assessment: - normal exam Misc Assessment: IV access: Peripheral line Anesthesia Plan: ASA 2 MAC, with a(n) intravenous induction DM -- lantus 68 QPM Reg None No H/O anesthetic issues Propofol MAC Region - Other Informed Consent: Anesthetic plan and risks discussed with patient. Plan discussed with SCIENCE TUTOR. PAT Staff Note documented in this encounter Plan of Treatment Upcoming Encounters Date Type Department Care Team (Late st Contact Info) Description 12/07/2023 1:00 PM EDT Appoint[place] [address] 12/07/2023 2:00 PM EDT Office [place] [phone] Geronimo Mojica MD [facility] [place] [address] 12/27/2023 11:30 AM EDT Office [place] [address] Noe Cuenca MD [facility] [place] [address] Scheduled Procedures Name Priority Associated Diagnoses Date/Ti [...] 11:15 AM EST 100 mL/hr 100 mL/hr lidocaine (PF) (XYLOCAINE) 100 mg/5 mL (2 %) injection PRN, Starting on Wed03/20/16 at 1130, Until Wed03/20/16 at 1244, Anesthesia Intra-op, Routine Given 03/20/2016 11:30 AM EST 50 mg propofol (DIPRIVAN) 10 mg/mL bolus injection (Anesthesia) PRN, Starting on Wed03/20/16 at 1130, Until Wed03/20/16 at 1244, Anesthesia Intra-op Given 03/20/2016 11:30 AM EST 70 mg propofol (DIPRIVAN) infusion CONTINUOUS PRN, Starting on Wed03/20/16 at 1130, Until Wed03/20/16 at 1244, Anesthesia Intra-op, Routine Rate/Dose Change 03/20/2016 11:36 AM EST 200 mcg/kg/min 103.2 mL/hr New Bag 03/20/2016 11:30 AM EST 250 mcg/kg/min 129 mL/h r documented in this encounter Care Teams Clinical Project Manager Relationship Specialty Start Date End Date David Blue MD [address] [place] [address] PCP - General 04/01/10 02/02/19 documented as of this encounter
--- OUTSIDE RECORDS SUMMARY | 2023-12-03 15:00 | XMS_ITS | Encounter Summary ---
Author Organization [facility] [place] [address] Care Team Providers Care Grease Worker Name Role Phone David Blue MD Primary Care Provider + [phone] Encounter Details Date Type Department Care Team (Late st Contact Info) Description 06/28/2018 Telephone [place] [address] Erin Lynn Social History Tobacco Use Types Packs/Day Years [...] encounter Miscellaneous Notes * Telephone Encounter - Erin Lynn - 06/28/2018 11:52 AM EST Jennifer Irving [id number] Diagnosis: EGD 1. Have you ever had a EGD before? [x] YES [] NO If Yes, Date of Last EGD:___03/20/16 If yes, did you have any problems with the procedure? [] YES [x] NO Explain: What type of sedation was used: anes 2. Do you take any Blood Thinners? [] YES [x] NO If Yes, type: 3. Do you have a Pacemaker or Defibrillator device? [] YES [x] NO If Yes send in[employer] Ph[employer] message to [facility] DEVICE CHECK 4. Are you a diabetic? [x] YES [] NO If yes, controlled by meds or diet? ___Both 5. Do you have any Allergies to Eggs, Latex or Medications? [x] YES [] NO If Yes, what:___See EDH 6. Do you take any Oral Iron Supplements (Including multi vitamins)? [] YES [x] NO 7. Do you have a history of three or more abdominal surgeries? [] YES [x] NO 8. Have you had a problem with sedation or anesthesia? [] YES [x] NO 9. Do you have a c-pap machine or oxygen tank? [] C-PAP [] Oxygen [x] NO 10. Do you take prescription narcotic pain medications? [] YES [x] NO 11. You must have a responsible republican stay at the facility during your procedure and drive you home? [x] YES 12. Is there any other information you would like to give us to aid in scheduling? Height:__5'___ Weight:__173 BMI: __33.8__ Age:58 y.o. documented in this encounter Plan of Treatment Upcoming Encounters Date Type Department Care Team (Late st Contact Info) Description 12/07/2023 1:00 PM EDT [place]oint[place] [address] 12/07/2023 2:00 PM EDT Office [place] [address] Geronimo Mojica MD [facility] [place] [address] 12/27/2023 11:30 AM EDT [place] [phone] Noe Cuenca MD [facility] [place] [address] Scheduled Procedures Name Priority Associated Diagnoses Date/Ti me EGD, UPPER GI ENDOSCOPY (WRV U 2.09) Peptic stricture of esophagus documented as of this encounter Visit Diagnoses Not on filedocumented in this encounter Care Teams Grease Worker Relationship Specialty Start Date End Date David Blue MD [address] [place] [address] PCP - General 04/01/10 02/02/19 documented as of this encounter
--- OUTSIDE RECORDS SUMMARY | 2023-12-03 15:00 | XMS_ITS | Encounter Summary ---
Author Organization [facility] [place] [address] Care Team Providers Care Qa Manager Name Role Phone David Blue MD Primary Care Provider + [phone] Encounter Details Date Type Department Care Team (Late st Contact Info) Description 03/19/2016 Telephone [place] [address] Angela Thompson Social History Tobacco Use Types Packs/Day Years Used Date Smoking Tobacco: Every Day Smokeless Tobacco: Never Sex and Gender Information Value Date Recorded Sex Assigned at Not on file Gender Identity Not on file Sexual Orientation Not on file documented as of this encounter Miscellaneous Notes * Telephone Encounter - Angela Palacios - 03/19/2016 9:36 AM EST Caller: biodiesel processing technician from [place], [place] Call for: MA's Reason for call: checking on rx that has been in their queue for quite some time needing prior authorization. Reviewed MA's notes and that we hadn't been able to reach patient. We had incorrect # on file. Updated number and will ask MA's to reach out to patient again. documented in this encounter Plan of Treatment Upcoming Encounters Date Type Department Care Team (Late st Contact Info) Description 12/07/2023 1:00 PM EDT Appointment [place] [address] 12/07/2023 2:00 PM EDT Office Visit [place] [address] Geronimo Mojica MD [facility] [place] [address] 12/27/2023 11:30 AM EDT Office Visit Pulmonology at [facility] [place] [phone] Noe Cuenca MD [facility] [place] [address] Scheduled Procedures Name Priority Associated Diagnoses Date/Ti me EGD, UPPER GI ENDOSCOPY (WRV U 2.09) Peptic stricture of esophagus documented as of this encounter Visit Diagnoses Not on filedocumented in this encounter Care Teams Qa Manager Relationship Specialty Start Date End Date David Blue MD [address] [place] [address] PCP - General 04/01/10 02/02/19 documented as of this encounter
--- OUTSIDE RECORDS SUMMARY | 2023-12-03 15:00 | XMS_ITS | Encounter Summary ---
Author Organization [facility] Address [facility] [place] [address] Care Team Providers Care Gas Main Fitter Helper Name Role Phone David Blue MD Primary Care Provider [phone] Encounter Details Date Type Department Care Team (Late st Contact Info) Description 02/24/2016 Orders [place] [phone] David Dejesus MD [facility] [place] [address] Screening breast examination Social History Tobacco Use Types Packs/Day Years [...] 12/07/2023 1:00 PM EDT Appointment [place] [phone] 12/07/2023 2:00 PM EDT Office [place] [phone] Geronimo Mojica MD [facility] [place]ACIC [place] [address] 12/27/2023 11:30 AM EDT Office [place] [address] Noe Cuenca MD [facility] DR PULMONARY [place] [address] Scheduled Procedures Name Priority Associated Diagnoses Date/Ti me EGD, UPPER GI ENDOSCOPY (WRV U 2.09) Peptic stricture of esophagus documented as of this encounter Visit Diagnoses Diagnosis Screening breast examination (Not by Mammogram) Other screening breast examination documented in this encounter Care Teams Gas Main Fitter Helper Relationship Specialty Start Date End Date David Blue MD [address] [place] [address] PCP - General 04/01/10 02/02/19 documented as of this encounter
--- OUTSIDE RECORDS SUMMARY | 2023-12-03 15:00 | XMS_ITS | Encounter Summary ---
Author Organization [facility] [place] [address] Care Team Providers Care Asbestos Microscopist Name Role Phone Ana Gillespie APRN Primary Care Provider [phone] Reason for Visit * Reason Onset Date Comments Medication Refill 09/08/2019 Encounter Details Date Type Department Care Team (Late st Contact Info) Description 09/08/2019 Refill [place] [address] David Dejesus MD [facility] DR [place] [address] Social History Tobacco Use Types Packs/Day Years [...] 12/07/2023 1:00 PM EDT Appointment [place] [phone] 12/07/2023 2:00 PM EDT Office [place] [phone] Geronimo Mojica MD [facility] DR [place] [address] 12/27/2023 11:30 AM EDT Office [place] [address] oNe Cuenca MD [facility] DR [place] [address] Scheduled Procedures Name Priority Associated Diagnoses Date/Ti me EGD, UPPER GI ENDOSCOPY (WRV U 2.09) Peptic stricture of esophagus documented as of this encounter Visit Diagnoses Not on filedocumented in this encounter Care Teams Asbestos Microscopist Relationship Specialty Start Date End Date Ana Gillespie APRN [address] [place] [address] PCP - General Family Medicine 02/03/19 documented as of this encounter
--- OUTSIDE RECORDS SUMMARY | 2023-12-03 15:00 | XMS_ITS | Encounter Summary ---
[place] [address] Care Team Providers Care Soil Biology Teacher Name Role Phone David Blue MD Primary Care Provider [phone] Reason for Visit * Reason Onset Date Comments Prior Authorization 09/22/2017 Encounter Details Date Type Department Care Team (Late st Contact Info) Description 09/22/2017 Telephone [place] [address] Francoise Vides CMA GASTROENTEROLOGY DEPT Prior Authorization [...] Telephone Encounter - Francoise Vides CMA - 09/22/2017 10:31 AM EDT Medication Prior Authorization 4L Gastroenterology / [place] [address] Subscriber Insurance: [place] Medicaid Phone: . Fax: Physician: David Dejesus Return Pharmacy: [facility] Medication Requested: pantoprazole Strength: 40 mg Frequency: BID Disp.: 180 Refills: 3 Currently taking: no Diagnosis for this medication: Farrell's w/ dysplasia, and GERD ICD-10 code: Prior medications trialed in this patient: Pantoprazole QD, esomperazole, and omeprazole Medication: Outcome/Adverse Reactions: treatment failure Decision: approved Tracking number/Case number/Reference number: [id number] Effective date: Start: 09/22/2017 End: 09/22/2018 documented in this encounter Plan of Treatment Upcoming Encounters Date Type Department Care Team (Late st Contact Info) Description 12/07/2023 1:00 PM EDT Appointment [place] [address] 12/07/2023 2:00 PM EDT Office Visit Thoracic Surgery at [place] [phone] Geronimo Mojica MD [facility] [place] [address] 12/27/2023 11:30 AM EDT Office Visit [place] [phone] Noe Cuenca MD [facility] DR [place] [address] Scheduled Procedures Name Priority Associated Diagnoses Date/Ti me EGD, UPPER GI ENDOSCOPY (WRV U 2.09) Peptic stricture of esophagus documented as of this encounter Visit Diagnoses Not on filedocumented in this encounter Care Teams Soil Biology Teacher Relationship Specialty Start Date End Date David Blue MD [address] [place] [address] PCP - General 04/01/10 02/02/19 documented as of this encounter
--- OUTSIDE RECORDS SUMMARY | 2023-12-03 15:00 | XMS_ITS | Encounter Summary ---
Author Organization [facility] Address [facility] [place] [address] Care Team Providers Care Beauty School Instructor Name Role Phone David Blue MD Primary Care Provider [phone] Encounter Details Date Type Department Care Team (Latest Contact Info) Description 04/03/2014 10:08 AM EST - 04/03/2014 2:04 PM EST Hospital Encounter Gastroenterology at [facility] [place] [address] David Dejesus MD [facility] [place] [address] Discharge Disposition: Home Social History Tobacco Use Types Packs/Day Years Used Date Smoking Tobacco: Every Day Sex and Gender Information Value Date Recorded Sex Assigned at Not on file Gender Identity Not on file Sexual Orientation Not on file documented as of this encounter Last Filed Vital Signs Vital Sign Reading Time Taken Comments Blood Pressure 138/59 04/03/2014 12:47 PM EST Pulse 67 04/03/2014 12:47 PM EST Temperature 36.7 ??C (98.1 ??F) 04/03/2014 11:[address] Respiratory Rate 19 04/03/2014 12:47 PM EST Oxygen Saturation 92% 04/03/2014 12:47 PM EST Inhaled Oxygen Concentration - - Weight 93.9 kg (207 lb) 04/03/2014 11:41 AM EST Height 152.4 cm (5') 04/03/2014 11:41 AM EST Body Mass Index 40.43 04/03/2014 11:41 AM EST documented in this encounter Discharge Instructions * Discharge Instructions* Beti Verde RN - 04/03/2014 12:48 PM EST Please call [phone], before 5pm with problems, questions or concerns, after 5pm call the Hospital at [phone] and ask to speak to the Concrete Truck Driver mergers and acquisitions banker and the needle loom operator will contactthat person for you. Discharge instructions reviewed with patient who expresses understanding. You may have received medications before and/or [...] foul drainage occurs, please contact your Doctor. * Attachments The following attachments cannot be sent through Care Everywhere. * EGD (UPPER ENDOSCOPY) : POST-OP (ISRAELI) documented in this encounter Medications at Time of Discharge Medication Sig Dispensed Refills Start Date End Date lithium 300 mg Capsule Take 1,000 mg by mouth daily. 03/31/2022 ESOMEPRAZOLE MAGNESIUM (NEXIUM ORAL) Take by mouth daily. 2014 PARoxetine (PAXIL) 40 mg Tablet Take 20 mg by mouth every morning. 03/31/2022 SIMVASTATIN ORAL Take by mouth daily. 10/2014 documented as of this encounter Progress Notes * David Dejesus MD - 04/03/2014 12:13 PM EST PROBLEM LIST Patient Active Problem List Diagnosis Code ??? GERD (gastroesophageal reflux disease) 530.81 ??? Farrell's esophagus 530.85 HISTORY OF PRESENT ILLNESS Ishan Irving is a 53 y.o. y/o who presents for EGD. PHYSICAL EXAM: Blood pressure 132/67, pulse 56, temperature 36.7 ??C (98.1 ??F), resp. rate 22, height 152.4 cm (5'), weight 93.895 kg (207 lb), SpO2 98 %. GEN: Alert, cooperative. Pleasant. In NAD HEENT: No oropharyngeal lesions. Neck supple. No masses. Thyroid symmetric LUNGS: CTAB CARD: RRR without m/g/r ABD: Non-distended. Active BS. Soft. Benign. No masses. No HSM. No succussion splash. No bruits RECTAL: Deferred EXT: No C/C/E NEURO: No focal ASSESSMENT AND PLAN Ishan Irving is a 53 y.o. y/o who presents for EGD. I have consented her for the procedure. documented in this encounter Plan of Treatment Upcoming Encounters Date Type Department Care Team (Late st Contact Info) Description 12/07/2023 1:00 PM EDT Appointment [place] [phone] 12/07/2023 2:00 PM EDT Office [place] [phone] Geronimo Mojica MD [facility] [place] [address] 12/27/2023 11:30 AM EDT Office [place] [phone] Noe Cuenca MD [facility] [place] [address] Scheduled Procedures Name Priority Associated Diagnoses Date/Ti me EGD, UPPER GI ENDOSCOPY (WRV U 2.09) Peptic stricture of esophagus documented as of this encounter Procedures Procedure Name Priority Date/Time Associated Diagnosis Comments SURGICAL PATHOLOGY REPORT Routine 04/03/2014 12:37 PM EST SPECIMEN TO PATHOLOGY Routine 04/03/2014 12:37 PM EST SPECIMEN TO PATHOLOGY Routine 04/03/2014 12:37 PM EST SPECIMEN TO PATHOLOGY Routine 04/03/2014 12:37 PM EST SPECIMEN TO PATHOLOGY Routine 04/03/2014 12:37 PM EST UPPER GASTROINTESTINAL ENDOSCOPY,WITH BIOPSY SINGLE OR MULTIPLE (WRVU 2.39) 04/03/2014 12:09 PM EST Esophageal reflux EGD, UPPER GI ENDOSCOPY (WRVU 2.09) 04/03/2014 12:09 PM EST Esophageal reflux UPPER GI ENDOSCOPY Routine 04/03/2014 12 :06 PM EST documented in this encounter Results * Surgical Pathology Report (04/03/2014 12:37 PM EST) FINAL DIAGNOSIS (AP) ? [facility] ? Provider: ?? DAVID DEJESUS ??Pt. Name: ?? ISHAN IRVING ? Acc #: ?[id number] ?Pt. ? Col Date: ?? 04/03/2014 ?/Sex: ?1960,(53 years),Female ? Rec Date: ?? 04/03/2014 ?LOC: ?4T ? SURGICAL PATHOLOGY ? ---Pathologic Diagnosis--- ? A - Esophagus at 34 cm, biopsy: ? Farrell's esophagus, negative for dysplasia. ? B - Esophagus at 30 cm, biopsy: ? Farrell's esophagus, negative for dysplasia. ? C - Esophagus at 32 cm, biopsy: ? Farrell's esophagus, negative for dysplasia. ? D - Duodenal bulb, biopsy: ? Duodenal mucosa with foveolar metaplasia and Evans's gland ? hyperplasia consistent with peptic-type duodenitis. ? CR-0 ? 04/04/14 ? BJM ? 04/04/14 Verified by: ? Chinmay Nguyen MD ? Pathologist ? (Electronic Signature) ? The attending pathologist whose signature appears on this report has ? reviewed all diagnostic slides and has edited the gross and/or ? microscopic portion of the report in rendering the final pathologic ? diagnosis. ? ---Gross Description--- ? A - Labeled/Fixativ e: Esophagus 34 cm, formalin. ? Quantity/Size: Two, 0.4 and 0.5 cm. ? Tissue Description: Soft, kirby-pink tissue. ? Sections/Proces sing: (T1) ? B - Labeled/Fixativ e: Esophagus 30 cm, formalin. ? Quantity/Size: Two, 0.2 and 0.4 cm. ? Tissue Description: Soft, kirby-pink tissue. ? Sections/Proces sing: (T1) ? C - Labeled/Fixativ e: Esophagus 32 cm, formalin. ? Quantity/Size: Three, 0.2-0.3 cm. ? Tissue Description: Soft, kirby-pink tissue. ? Sections/Proces sing: (T1) ? D - Labeled/Fixativ e: Duodenal bulb, formalin. ? [facility] ? Provider: ?? DAVID DEJESUS ??Pt. Name: ?? ISHAN IRVING ? Acc #: ?[id number] ?Pt. ? Col Date: ?? 04/03/2014 ?/Sex: ?1960,(53 years),Female ? Rec Date: ?? 04/03/2014 ?LOC: ?4T ? SURGICAL PATHOLOGY ? Quantity/Size: Two, averaging 0.3 cm. ? Tissue Description: Soft, red-kirby tissue. ? Sections/Proces sing: (T1) ??ejr ? ---Clinical Information--- ? Specimen Submitted: ? A - Esophagus 34 cm ? B - Esophagus 30 cm ? C - Esophagus 32 cm ? D - Duodenal bulb ? Clinical History: ? Barretts esophagus ? Clinical Diagnosis: ? Same 04/04/2014 9:11 PM EST [facility] 04/03/2014 12:3 7 PM EST David Dejesus MD PATHOLOGY/CYTOLOGY ORDERABLES Performing Organization Address [facility] de Phone Number [facility] [place] [address] * Specimen to Pathology (surgical or derm) (04/03/2014 12:37 PM EST) AP Specimen 04/03/2014 12:3 7 PM EST 04/03/2014 12:37 PM EST Narrative DARCY GALINDOMELISSAIUM - 04/03/2014 12:37 PM EST Specimen requisition ordered. ??Separate Pathology report to follow David Dejesus MD PATHOLOGY/CYTOLOGY ORDERABLES Performing Organization Address [facility] de Phone Number [facility] * Specimen to Pathology (surgical or derm) (04/03/2014 12:37 PM EST) AP Specimen 04/03/2014 12:3 7 PM EST 04/03/2014 12:37 PM EST Narrative GOGONER GALINDOMELISSAIUM - 04/03/2014 12:37 PM EST Specimen requisition ordered. ??Separate Pathology report to follow David Dejesus MD PATHOLOGY/CYTOLOGY ORDERABLES Performing Organization Address [facility] Co de Phone Number [facility]IT[facility] MEDLEYRocketickIUM * Specimen to Pathology (surgical or derm) (04/03/2014 12:37 PM EST) AP Specimen 04/03/2014 12:3 7 PM EST 04/03/2014 12:37 PM EST Narrative DARCY OQUENDOIUM - 04/03/2014 12:37 PM EST Specimen requisition ordered. ??Separate Pathology report to follow David Dejesus MD PATHOLOGY/CYTOLOGY ORDERABLES Performing Organization Address [facility] Co de Phone Number DARCY BARNETT * Specimen to Pathology (surgical or derm) (04/03/2014 12:37 PM EST) AP Specimen 04/03/2014 12:3 7 PM EST 04/03/2014 12:37 PM EST Narrative DARCY BARNETT - 04/03/2014 12:37 PM EST Specimen requisition ordered. ??Separate Pathology report to follow David Dejesus MD PATHOLOGY/CYTOLOGY ORDERABLES Performing Organization Address [facility] Co de Phone Number DARCY BARNETT * UPPER GI ENDOSCOPY (04/03/2014 12:06 PM EST) UPPER GI ENDOSCOPY [facility] Endoscopy Patient Name: Ishan Irving ? Procedure Date: 04/03/2014 12:06 PM ? [facility]: [id number] ? Date of : 1960 ? Age: 53 ? Order #: [id number] ? Procedure: ? Upper GI endoscopy Indications: ? Dyspepsia Providers: ? David Dejesus MD, Elizabeth Celis, ? RN, Veena Blanchard MD: ?David Blue MD Medicines: ? Midazolam 3 mg IV, Fentanyl 150 ? micrograms IV Complications: ? No immediate complications. Procedure: [...] The anesthesia ? plan was to use moderate sedation / ? analgesia (conscious sedation). ? Immediately prior to administration ? of [...] the ? procedure well. ? Findings: ? There was a 6 cm hiatal hernia. The diaphragmatic ? pinch was at 40 cm and the GE junction was at 34 cm. ? There was 6 cm of Farrell's esophagus proximally ? extending from 34 cm to 28 cm. There were no nodules ? or masses. Biopsies were taken in four quadrants in ? three bottles - 34, 32, 30 cm. ? The stomach was normal. ? The examined duodenum was normal with the exception ? of mild duodenitis in the bulb with erythema and ? edema. ? Impression: ?- Hiatal hernia with associated long ? segment Farrell's esophagus s/p ? biopsies ? - Duodenitis Recommendation: ?- Await pathology results ? - Follow-up with Dr. Maharaj as ? previously scheduled ? ___ David Dejesus MD 04/03/2014 12:29 PM This report has been signed electronically. Number of Addenda: 0 Note Initiated On: 04/03/2014 12:06 PM PROVATION 04/03/2014 12:0 6 PM EST David Blue MD GENERAL SURGICAL ORD ERABLES PROVATION documented in this encounter Visit Diagnoses Not on filedocumented in this encounter Active and Recently Administered Medications Times are shown in EST. PRN Medication Order 04/01/2014 04/02/2014 04/03/2014 fentaNYL 50mcg/mL injection (CANCELED) ONCE PRN, Starting on Wed04/03/14 at 1211, Until Wed04/03/14 at 1326, Intra-Operative (Intra-Procedure), Routine 1211 (Given - Provid er: Elizabeth Celis RN)1213 (Given - Provider: Elizabeth Celis RN)1217 (Given - Provider: Elizabeth Celis RN) midazolam (PF) (VERSED) 1 mg/mL injection (CANCELED) ONCE PRN, Starting on Wed04/03/14 at 1212, Until Wed04/03/14 at 1326, Intra-Operative (Intra-Procedure), Routine 1212 (Given - Provid er: Elizabeth Celis RN)1213 (Given - Provider: Elizabeth Celis RN)1218 (Given - Provider: Elizabeth Celis RN) documented in this encounter Care Teams Beauty School Instructor Relationship Specialty Start Date End Date David Blue MD [address] [place] [address] PCP - General 04/01/10 02/02/19 documented as of this encounter
--- OUTSIDE RECORDS SUMMARY | 2023-12-03 15:00 | XMS_ITS | Encounter Summary ---
Author Organization [facility] Address [facility] [place] [address] Care Team Providers Care Court Messenger Name Role Phone David Blue MD Primary Care Provider + [phone] Reason for Referral * Consultation (Routine) - Closed Specialty Diagnoses / Procedures Referred By Esperanza rodríguez Referred To Contact Endocrinology Diagnoses Diabetes mellitus type 2, uncontrolled Dean Caban MD [facility] [place] [address] Yin Rehman LD [facility] [place] [address] Referral ID Status Reason Start Date Expiration Date V isits Requested Visits Authorized [id number] Closed Continuity of Care 12/13/2014 12/13/2015 3 3 Reason for Visit * Reason Comments Diabetes Encounter Details Date Type Department Care Team (Late st Contact Info) Description 12/13/2014 1:40 PM EDT Office Visit Endocrinology at [place] [phone] Moustapha Agosto MD [facility] [place] [address] Diabetes mellitus type 2, uncontrolled Discharge Disposition: Home Social History Tobacco Use Types Packs/Day Years Used Date Smoking Tobacco: Every Day Smokeless Tobacco: Never Sex and Gender Information Value Date Recorded Sex Assigned at Not on file Gender Identity Not on file Sexual Orientation Not on file documented as of this encounter Last Filed Vital Signs Vital Sign Reading Time Taken Comments Blood Pressure 131/77 12/13/2014 12:36 PM EDT Pulse 89 12/13/2014 12:36 PM EDT Temperature - - Respiratory Rate - - Oxygen Saturation - - Inhaled Oxygen Concentration - - Weight 86.5 kg (190 lb 12.8 oz) 015 12:36 PM EDT Height 152.4 cm (5') 12/13/2014 12:36 PM EDT Body Mass Index 37.26 12/13/2014 12:36 PM EDT documented in this encounter Patient Instructions * Patient Instructions* Dean Caban MD - 12/13/2014 1:42 PM EDT Start taking metformin: - 1/2 tablet nightly for a week, then - 1/2 tablet twice daily for a week, then - 1/2 tablet in the morning and 1 tablet in the evening for a week, then - 1 tablet twice daily Start taking albiglutide weekly (may need to be changed based on your insurance company's preference). Please let us know if this medication is too expensive. Continue your current dose of Lantus for the time being. If you fasting sugars are under 100, decrease the dose by 5 units every two to three days. Use the Novolog as needed based on the correction factor scale. Hopefully, after a few weeks, you will not need to take this frequently. For now, check your sugars before meals. After your sugars are better, you can check your sugars twice daily, once fasting and once two hours after either lunch or dinner (alternating between these two meals, if possible). documented in this encounter Progress Notes * Moustapha Agosto MD - 12/13/2014 2:16 PM EDT I interviewed and discussed patient along with Dr. Caban and agree with his recommendations and plans. * Dean Caban MD - 12/12/2014 8:06 PM EDT Endocrinology Consult Note Reason for Visit: Consult requested by Symone Garcia APRN for evaluation of T2DM HPI: The patient is a 54-y/o lady with a PMH significant for T2DM who presents in consultation for evaluation of this condition. She was diagnosed with gestational diabetes 12 years ago and [id number] five years ago. The patient reports that she been on multiple medications for reasons she doesnot understand. Because of this, she often forgets to take her insulin (forgets about half of days). She has tried Januvia without benefit. She was on metformin and glyburide but had them stopped forunknown reason. She is interested in starting correction insulin. She reports that she knows when she is hyperglycemic because she gets inguinal pruritis and has sweet-smelling urine. She has not been able to check her glucoses due to not having a working glucometer. - Diet (last 24 hours) - Breakfast: Protein bar, coffee - Lunch: Not yet - Dinner: Two candy bars, popcorn - Snacks: None - Complication Monitoring - Nephropathy: None - Retinopathy: None - Neuropathy: None - Cardiac: None PMH: - T2DM - Bipolar disorder - GERD Relevant Medications: - Lantus 62 units daily FH: - Father with T2DM SH: - Smokes 1 PPD - Minimal EtOH ROS: - 10-point ROS performed and negative, except as above PE: - Vitals: 131/77, 89, BMI 37.3 - Gen: Awake and alert, NAD - HEENT: PERRL, moist MM - Neck: No thyromegaly - CV: RRR, no M/C/R; 2+ pulses in LE - Pulm: CTAB - Abd: +BS, NTTP - Ext: No edema - Derm: No rashes, no LE lesions - Neuro: 2+ reflexes, no tremor, full sensation to monofilament exam in LE Labs: - 12/13/2014 - A1C 10.6% - Albuminuria screen 91 - 02/19/2014 - Lipids: Total 232, LDL 163, HDL 32, TGLs 267 Assessment: The patient is a 54-y/o lady with a PMH significant for T2DM who presents in consultation for evaluation of this condition. With her age and lack of complications, and A1C target of 6.0-7.0% seems to make the most sense at this point. Utilizing a regimen that minimizes her weight gain should be focused on. Thus, metformin and a GLP-1 agonist would fit the bill for this. She may be in glucose toxicity at this time, which could limit the efficacy of a GLP-1 agonist. Temporarily using correction insulin may help break this toxicity. Currently, her 10-year risk for ASCVD is 17.5%, suggesting that a high-potency statin is also indicated. Plan: - Continue Lantus 62 units daily for the time being - Start GLP-1 agonist (will start with albiglutide and attempt to get approved) - Start metformin 1,000 mg BID - Will coordinate visit with Poultry Farm Manager at next visit - Complication Monitoring: - Renal: +albuminuria screen today, may be from hyperglycemia alone and not diabetic nephropathy, will repeat when control better - Retinal: Reportedly normal eye exam 06/2014 - Neurological: Normal foot exam today - Cardiac: BP at goal; high-intensity statin indicated, will discuss further at next appointment - Encouraged smoking cessation F/U in 3 months, will repeat an A1C at that time Patient seen and discussed with the attending Dr. Surendra Caban M.D. Endocrinology, Diabetes, and Metabolism Fellow Leadership Preventive Medicine Resident 12/13/2014 documented in this encounter Plan of Treatment Upcoming Encounters Date Type Department Care Team (Late st Contact Info) Description 12/07/2023 1:00 PM EDT [place]oint[place] [phone] 12/07/2023 2:00 PM EDT Office Visit Thoracic Surgery at [place] [phone] Geronimo Mojica MD [facility] [place] [address] 12/27/2023 11:30 AM EDT [place] [phone] Noe Cuenca MD [facility] [place] [address] Scheduled Procedures Name Priority Associated Diagnoses Date/Ti me EGD, UPPER GI ENDOSCOPY (WRV U 2.09) Peptic stricture of esophagus Scheduled Referrals Name Type Priority Associated Diagnoses Orde r Schedule Referral to Diabetic Education Outpatient Referral Routine Diabetes mellitus type 2, uncontrolled Ordered: 12/13/2014 documented as of this encounter Procedures Procedure Name Priority Date/Time Associated Diagnosis Comments U ALBUMIN/CRE RATIO STAT 12/13/2014 1 2:33 PM EDT Diabetes mellitus type 2, uncontrolled HEMOGLOBIN A1C STAT 12/13/2014 11:56 AM EDT Diabetes mellitus type 2, uncontrolled documented in this encounter Results * Microalbumin, urine, random (12/13/2014 12:33 PM EDT) U Creatinine 284 mg/dL [facility] U Albumin Conc, Random 258.4 mg/L [facility] Hired Alb/Cr Ratio, Random 91 mcg/mg Cr [facility] Hired Comment: Reference Range* Random collection (mcg/mg creatinine) Normal ?<30 Microalbuminuria ?? 30 - 300 Clinical Albuminuria ?? >300 *[place] Diabetes Association. Diabetic Nephropathy. Diabetes Care 1997;(Suppl 1):S24-S27 Exercise within 24 hour, infection, fever, CHF, marked hyperglycemia, and marked hypertension may elevate urinary albumin excretion over baseline values. Urine specimen (specimen) 12/13/2014 12:33 PM EDT 12/13/2014 12:39 PM EDT Narrative Resulting Agency Comment Spec In Lab Moustapha Agosto MD URINE ORDERABLES [facility] * (ABNORMAL) Hemoglobin A1c (12/13/2014 11:56 AM EDT) Hemoglobin A1C 10.6(H) 4.3 - 5.6 % DARCY [facility]ISS[facility] Comment: Reference Range: 4.3 - 5.6% 5.7 [...] Mellitus, Diabetes Care 2013; 36: Suppl. 1, S67-74 Est Avg Gluc 258 mg/dL [facility] Comment: eAG equivalents for HbA1c percentages: HbA1c(%) ?eAG(mg/dL) 6.0 ?126 6.5 ?140 7.0 ?154 7.5 ?169 8.0 ?183 8.5 ?197 9.0 ?212 9.5 ?226 10.0 ? 240 Limitations: The eAG calculation has not been validated on women, individuals below 18 years old and above 70 years old, and individuals with hemoglobinopathies. Additional resources are available on the ADA website: http://Digby.com/DHMCadacalc Lucio BIGGS, Jeannie J, Edwin R, et al. ??Translating the A1C assay into estimated average glucose values. ??Diabetes Care 2008:31(8):2164-0952. Blood specimen (specimen) 12/13/2014 11:56 AM EDT 12/13/2014 12:19 PM EDT Narrative Resulting Agency Comment Spec In Lab Moustapha Agosto MD CHEMISTRY ORDERABLES [facility] documented in this encounter Visit Diagnoses Diagnosis Diabetes mellitus type 2, uncontrolled Type II or unspecified type diabetes mellitus without mention of complication, uncontrolled documented in this encounter Care Teams Court Messenger Relationship Specialty Start Date End Date David Blue MD [address] [place] [address] PCP - General 04/01/10 02/02/19 documented as of this encounter
--- OUTSIDE RECORDS SUMMARY | 2023-12-03 15:00 | XMS_ITS | Encounter Summary ---
Author Organization [facility] Address [facility] [place] [address] Care Team Providers Care Squirrel Worker Name Role Phone David Blue MD Primary Care Provider [phone] Encounter Details Date Type Department Care Team (Late Contact Info) Description 08/05/2017 Orders Only G[place] [phone] David Dejesus MD [facility] DR [place] [address] Social History Tobacco Use Types Packs/Day Years [...] 12/07/2023 1:00 PM EDT Appointment [place] [phone] 12/07/2023 2:00 PM EDT Office Visit [place] [phone] Geronimo Mojica MD [facility] [address] THORACIC SURGERY [place], [place] [phone] 12/27/2023 11:30 AM EDT Office Visit [place] [phone] Noe Cuenca MD [facility] DR [place]MONARY [place] [address] Scheduled Procedures Name Priority Associated Diagnoses Date/Ti me EGD, UPPER GI ENDOSCOPY (WRV U 2.09) Peptic stricture of esophagus documented as of this encounter Visit Diagnoses Not on filedocumented in this encounter Care Teams Squirrel Worker Relationship Specialty Start Date End Date David Blue MD [address] [place] [address] PCP - General 04/01/10 02/02/19 documented as of this encounter
--- OUTSIDE RECORDS SUMMARY | 2023-12-03 15:00 | XMS_ITS | Encounter Summary ---
Author Organization [facility] [place] [address] Care Team Providers Care Expedition Supervisor Name Role Phone David Blue MD Primary Care Provider [phone] Encounter Details Date Type Department Care Team (Late st Contact Info) Description 04/03/2014 11:30 AM EST - 04/03/2014 12:00 PM EST Surgery Gastroenterology at [facility] [place] [address] David Dejesus MD [facility] [place] [address] EGD, UPPER GI ENDOSCOPY (WRVU 2.09) Social History Tobacco Use Types Packs/Day Years Used Date Smoking Tobacco: Every Day Sex and Gender Information Value Date Recorded Sex Assigned at Not on file Gender Identity Not on file Sexual Orientation Not on file documented as of this encounter Last Filed Vital Signs Vital Sign Reading Time Taken Comments Blood Pressure 128/77 04/03/2014 11:41 AM EST Pulse 61 04/03/2014 11:41 AM EST Temperature 36.7 ??C (98.1 ??F) 04/03/2014 11:[address] Respiratory Rate 20 04/03/2014 11:41 AM EST Oxygen Saturation 94% 04/03/2014 11:41 AM EST Inhaled Oxygen Concentration - - Weight 93.9 kg (207 lb) 04/03/2014 11:41 AM EST Height 152.4 cm (5') 04/03/2014 11:41 AM EST Body Mass Index 40.43 04/03/2014 11:41 AM EST documented in this encounter Discharge Instructions * Discharge Instructions* Beti Verde RN - 04/03/2014 12:48 PM EST Please call [phone], before 5pm with problems, questions or concerns, after 5pm call the Hospital at [phone] and ask to speak to the Desk Maker carbon coater machine operator and the corrugator operator will contactthat person for you. Discharge [...] Everywhere. * EGD (UPPER ENDOSCOPY) : POST-OP (CROATIAN) documented in this encounter Medications at Time [...] 12/07/2023 1:00 PM EDT [place] [phone] 12/07/2023 2:00 PM EDT Office [place] [address] Geronimo Mojica MD [facility] [place] [address] 12/27/2023 11:30 AM EDT [place] [address] Noe Cuenca MD [facility] [place] [address] Scheduled Procedures Name Priority Associated Diagnoses Date/Ti [...] 12:37 PM EST) FINAL DIAGNOSIS (AP) ? [facility] ? Provider: ?? DAVID DEJESUS ??Pt. Name: ?? IRVING, ISHAN [place] ? Acc #: ?[id number] ?Pt. ? Col Date: ?? 04/03/2014 ?/Sex: [...] - Labeled/Fixativ e: Duodenal bulb, formalin. ? [facility] ? Provider: ?? DAVID DEJESUS ??Pt. Name: ?? ISHAN IRVING ? Acc #: ?[id number] ?Pt. ? Col Date: ?? 04/03/2014 ?/Sex: [...] Diagnosis: ? Same 04/04/2014 9:11 PM EST [facility] 04/03/2014 12:3 7 PM EST David Dejesus MD PATHOLOGY/CYTOLOGY ORDERABLES Performing Organization Address [facility] de Phone Number [facility] [place] [address] * Specimen to Pathology (surgical or derm) (04/03/2014 12:37 PM EST) AP Specimen 04/03/2014 12:3 7 PM EST 04/03/2014 12:37 PM EST Narrative DARCY [facility] - 04/03/2014 12:37 PM EST Specimen requisition ordered. ??Separate Pathology report to follow David Dejesus MD PATHOLOGY/CYTOLOGY ORDERABLES Performing Organization Address [facility] de Phone Number DARCY GALINDOMELISSAIUM * Specimen to Pathology (surgical or derm) (04/03/2014 12:37 PM EST) AP Specimen 04/03/2014 12:3 7 PM EST 04/03/2014 12:37 PM EST Narrative CERNER GALINDOMELISSAIUM - 04/03/2014 12:37 PM EST Specimen requisition ordered. ??Separate Pathology report to follow David Dejesus MD PATHOLOGY/CYTOLOGY ORDERABLES Performing Organization Address [facility] Co de Phone Number DARCY GALINDONAZIA * Specimen to Pathology (surgical or derm) (04/03/2014 12:37 PM EST) AP Specimen 04/03/2014 12:3 7 PM EST 04/03/2014 12:37 PM EST Narrative DARCY BARNETT - 04/03/2014 12:37 PM EST Specimen requisition ordered. ??Separate Pathology report to follow David Dejesus MD PATHOLOGY/CYTOLOGY ORDERABLES Performing Organization Address [facility] Co de Phone Number [facility] * Specimen to Pathology (surgical or derm) (04/03/2014 12:37 PM EST) AP Specimen 04/03/2014 12:3 7 PM EST 04/03/2014 12:37 PM EST Narrative DARCY BARNETT - 04/03/2014 12:37 PM EST Specimen requisition ordered. ??Separate Pathology report to follow David Dejesus MD PATHOLOGY/CYTOLOGY ORDERABLES Performing Organization Address City/[facility] Co de Phone Number [facility] * UPPER GI ENDOSCOPY (04/03/2014 12:06 PM EST) UPPER GI ENDOSCOPY [facility] Endoscopy Patient Name: Ishan Irving ? Procedure Date: 04/03/2014 12:06 PM ? N: [id number] ? Date of : 1960 ? Age: 53 ? Order #: [id number] ? Procedure: ? Upper GI endoscopy Indications: [...] documented in this encounter Visit Diagnoses Diagnosis Esophageal reflux documented in this encounter Administered Medications Inactive Administered Medications - up to 3 most recent administrations Medication Order MAR Action Action Date Dose Rate Site fentaNYL 50mcg/mL injection ONCE PRN, Starting on Wed04/03/14 at 1211, Until Wed04/03/14 at 1326, Intra-Operative (Intra-Procedure), Routine Given 04/03/2014 12:17 PM EST 50 mcg Right Arm Given 04/03/2014 12:13 PM EST 50 mcg R ight Arm Given 04/03/2014 12:11 PM EST 50 mcg R ight Arm midazolam (PF) (VERSED) 1 mg/mL injection ONCE PRN, Starting on Wed04/03/14 at 1212, Until Wed04/03/14 at 1326, Intra-Operative (Intra-Procedure), Routine Given 04/03/2014 12:18 PM EST 1 mg Given 04/03/2014 12:13 PM EST 1 mg Given 04/03/2014 12:12 PM EST 1 mg documented in this encounter Active and Recently [...] RN) documented in this encounter Care Teams Expedition Supervisor Relationship Specialty Start Date End Date David Blue MD [address] [place] [address] PCP - General 04/01/10 02/02/19 documented as of this encounter
--- OUTSIDE RECORDS SUMMARY | 2023-12-03 15:00 | XMS_ITS | Encounter Summary ---
Author Organization [facility] [place] [address] Care Team Providers Care Railroad Maintenance Clerk Name Role Phone David Blue MD Primary Care Provider [phone] Reason for Visit * Reason Onset Date Comments Other 03/21/2014 Motility Studies Canceled Encounter Details Date Type Department Care Team (Late st Contact Info) Description 03/21/2014 [place] [address] Mya Garzon Other (Motility Studies Canceled) Social History Tobacco Use Types Packs/Day Years Used Date Smoking Tobacco: Every Day Sex and Gender Information Value Date Recorded Sex Assigned at Not on file Gender Identity Not on file Sexual Orientation Not on file documented as of this encounter Miscellaneous Notes * Telephone Encounter - Mya Garzon - 03/21/2014 9:47 AM EST Nichelle called; Dr. Maharaj wants to cancel pt's [facility] and [facility] but keep EGD appt. [facility] and [facility] canceled; jarvis rincon updated case to reflect those changes. I told Nichelle pt needs to arrive at 10:30 am on 04/03/14 and needs to still follow the instructions for her EGD that were sent to her in her original letter. Nichelle will call pt with this info. -bcj documented in this encounter Plan of Treatment Upcoming Encounters Date Type Department Care Team (Late st Contact Info) Description 12/07/2023 1:00 PM EDT [place] [address] 12/07/2023 2:00 PM EDT Office [place] [address] Geronimo Mojica MD [facility] [place] [address] 12/27/2023 11:30 AM EDT [place] [address] Noe Cuenca MD [facility] [place] [address] Scheduled Procedures Name Priority Associated Diagnoses Date/Ti me EGD, UPPER GI ENDOSCOPY (WRV U 2.09) Peptic stricture of esophagus documented as of this encounter Visit Diagnoses Not on filedocumented in this encounter Care Teams Railroad Maintenance Clerk Relationship Specialty Start Date End Date David Blue MD [address] [place] [address] PCP - General 04/01/10 02/02/19 documented as of this encounter
--- OUTSIDE RECORDS SUMMARY | 2023-12-03 15:00 | XMS_ITS | Encounter Summary ---
Author Organization [facility] Address [facility] [place] [address] Care Team Providers Care Tax Examiner Name Role Phone David Blue MD Primary Care Provider [phone] Encounter Details Date Type Department Care Team (Late st Contact Info) Description 11/22/2018 11:15 AM EDT - 11/22/2018 11:45 AM EDT [place] [address] David Dejesus MD [facility] [place] [address] EGD WITH BIOPSY (WRVU 2.39) Social History [...] Sign Reading Time Taken Comments Blood Pressure 137/79 11/22/2018 10:46 AM EDT Pulse 58 11/22/2018 10:46 AM EDT Temperature 36.5 ??C (97.7 ??F) 11/22/2018 10:46 AM E DT Respiratory Rate - - Oxygen Saturation 96% 11/22/2018 10:46 AM EDT Inhaled Oxygen Concentration - - [...] better as expected. Wednesday-Wednesday Same Day Endo [phone]-[phone] Otherwise contact [phone] and ask to speak to the personal caregiver sponge clipper Follow-up care is a fam part of [...] meter kit. 1 each 0 12/14/2014 Insulin [place], Disposable, (BD INSULIN PEN NEEDLE UF MINI) 31 x 07/23 NeedleIndications:Di abetes mellitus type 2, uncontrolled 1 Device by [facility].(Non-Drug; Combo Route) route 3 times [...] 12/07/2023 1:00 PM EDT [place] [address] 12/07/2023 2:00 PM EDT Office [place] [phone] Geronimo Mojica MD [facility] [place] [address] 12/27/2023 11:30 AM EDT Office Visit Pulmonology [place] [address] Noe Cuenca MD [facility] [place] [address] Scheduled Procedures Name Priority Associated Diagnoses Date/Ti [...] PM EDT 11/22/2018 12:43 PM EDT Narrative [facility] - 11/22/2018 12:43 PM EDT Specimen requisition ordered. ??Separate Pathology report to follow David Dejesus MD PATHOLOGY/CYTOLOGY ORDERABLES Performing Organization Address City/State/[facility] Co de Phone Number [facility] [place] [address] * Surgical Pathology Report (11/22/2018 12:34 PM EDT) FINAL DIAGNOSIS (AP) [id number] ? Location: 4T; EA06; A The signing [...] Verified: ??11/23/2018 ?Pathologist Performed at: ??-[facility] Dept. of Pathology, [place], [place] CLINICAL INFORMATION Specimen Submitted: A - [...] labeled E1. ??shb 11/23/2018 2:35 PM EDT [facility] 11/22/2018 12:3 4 PM EDT David Dejesus MD PATHOLOGY/CYTOLOGY ORDERABLES [facility] [place] [address] * Specimen to Pathology (11/22/2018 12:34 PM EDT) AP Specimen 11/22/2018 12:3 4 PM EDT 11/22/2018 12:34 PM EDT Narrative [facility] - 11/22/2018 12:34 PM EDT Specimen requisition ordered. ??Separate Pathology report to follow David Dejesus MD PATHOLOGY/CYTOLOGY ORDERABLES [facility] [place] [address] * Specimen to Pathology (11/22/2018 12:34 PM EDT) AP Specimen 11/22/2018 12:3 4 PM EDT 11/22/2018 12:34 PM EDT Narrative [facility] - 11/22/2018 12:34 PM EDT Specimen requisition ordered. ??Separate Pathology report to follow David Dejesus MD PATHOLOGY/CYTOLOGY ORDERABLES Performing Organization Address [facility]/ZIP [place] [address] * Specimen to Pathology (11/22/2018 12:34 PM EDT) AP Specimen 11/22/2018 12:3 4 PM EDT 11/22/2018 12:34 PM EDT Narrative [facility] - 11/22/2018 12:34 PM EDT Specimen requisition ordered. ??Separate Pathology report to follow David Dejesus MD PATHOLOGY/CYTOLOGY ORDERABLES Performing Organization Address [facility] [place] [address] * Specimen to Pathology (11/22/2018 12:34 PM EDT) AP Specimen 11/22/2018 12:3 4 PM EDT 11/22/2018 12:34 PM EDT Narrative [facility] - 11/22/2018 12:34 PM EDT Specimen requisition ordered. ??Separate Pathology report to follow David Dejesus MD PATHOLOGY/CYTOLOGY ORDERABLES Performing Organization Address [facility] [place] [address] * UPPER GI ENDOSCOPY (11/22/2018 12:12 PM EDT) UPPER GI ENDOSCOPY [facility] Endoscopy Procedure Date: 11/22/2018 12:12 PM ? Patient Name: Jennifer Irving ? Date of : 1960 ? Age: 58 ? Order #: [id number] ? Instrument Name: [id number] ? Procedure: ? Upper GI endoscopy Indications: ? Surveillance for malignancy due to ? 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 David Dejesus MD, Andrea ? ERI Augustin, Mercedes Blanchard MD: ?David Blue MD Medicines: ? [...] Organization Address [facility] Co de Phone Number [facility] * (ABNORMAL) POCT Glucose (11/22/2018 10:58 AM EDT) POC Glucose 277(H) 65 - 199 mg/dL [facility] Comment: Supplemental ranges: <140 mg/dL before meals <180 mg/dL all other times of the day Blood specimen (specimen) 11/22/2018 10:58 AM EDT 11/22/2018 10:58 AM EDT David Dejesus MD POINT OF CARE TEST ORDERABLES Performing Organization Address [facility] Co de Phone Number [facility] [place] [address] documented in this encounter Visit Diagnoses Not [...] (CANCELED) 100 mL/hr, Intravenous, CONTINUOUS, Starting on 11/22/18 at 1100, Until 11/22/18 at 1329, Endoscopy (Day of Procedure) 1101 (New Bag - Prov ider: Dottie Cintron RN)1220 (New Bag - Provider: Shanell Gotti CRNA)1243 (Anesthesia Volume Adjustment - Provider: Shanell Gotti CRNA) documented in this encounter Care Teams Tax Examiner Relationship Specialty Start Date End Date David Blue MD [address] [place] [address] PCP - General 04/01/10 02/02/19 documented as of this encounter
--- OUTSIDE RECORDS SUMMARY | 2023-12-03 15:00 | XMS_ITS | Encounter Summary ---
[place] [address] Care Team Providers Care Core Machine Operator Name Role Phone David Blue MD Primary Care Provider [phone] Reason for Visit * Reason Onset Date Comments Prior Authorization 09/27/2018 Encounter Details Date Type Department Care Team (Late st Contact Info) Description 09/27/2018 Telephone [place] [address] Francoise Vides CMA GASTROENTEROLOGY DEPT Prior Authorization [...] Telephone Encounter - Francoise Vides CMA - 09/27/2018 1:25 PM EDT Medication Prior Authorization 4L Gastroenterology / [place] [address] ?? Subscriber Insurance: [place] Medicaid ?? Phone: . Fax: ? Physician: David Dejesus ? Return ?? Pharmacy: [facility] ? Medication Requested: pantoprazole ?? Strength: 40 mg Frequency: BID ?? Disp.: 180 Refills: 3 ?? Currently taking: no ?? Diagnosis for this medication: Farrell's w/ dysplasia, and GERD ?? ICD-10 code: ?? Prior medications trialed in this patient: Pantoprazole QD, esomperazole, and omeprazole ? Medication: Outcome/Adverse Reactions: treatment failure ?? Decision: approved ?? Tracking number/Case number/Reference number: [id number] ?? Effective date: ?? Start: End: 09/28/2019 documented in this encounter Plan of Treatment Upcoming Encounters Date Type Department Care Team (Late st Contact Info) Description 12/07/2023 1:00 PM EDT Appointment Pulmonology at [place] [phone] 12/07/2023 2:00 PM EDT Office Visit [place] [address] Geronimo Mojica MD [facility] [place] [address] 12/27/2023 11:30 AM EDT Office Visit Pulmonology at [place] [phone] Noe Cuenca MD [facility] [place] [address] Scheduled Procedures Name Priority Associated Diagnoses Date/Ti me EGD, UPPER GI ENDOSCOPY (WRV U 2.09) Peptic stricture of esophagus documented as of this encounter Visit Diagnoses Not on filedocumented in this encounter Care Teams Core Machine Operator Relationship Specialty Start Date End Date David Blue MD [address] [place] [address] PCP - General 04/01/10 02/02/19 documented as of this encounter
--- OUTSIDE RECORDS SUMMARY | 2023-12-03 15:00 | XMS_ITS | Encounter Summary ---
Author Organization [facility] Address [facility] [place] [address] Care Team Providers Care Assistant Mechanic Name Role Phone David Blue MD Primary Care Provider [phone] Encounter Details Date Type Department Care Team (Late st Contact Info) Description 03/02/2018 Orders Only [place] [address] David Dejesus MD [facility] [place] [address] Breast cancer screening Social History Tobacco Use Types Packs/Day Years [...] 12/07/2023 1:00 PM EDT Appointment [place] [address] 12/07/2023 2:00 PM EDT Office Visit [place] [address] Geronimo Mojica MD [facility] [place] [address] 12/27/2023 11:30 AM EDT Office [place] [address] Noe Cuenca MD [facility] [place] [address] Scheduled Procedures Name Priority Associated Diagnoses Date/Ti me EGD, UPPER GI ENDOSCOPY (WRV U 2.09) Peptic stricture of esophagus documented as of this encounter Visit Diagnoses Diagnosis Breast cancer screening Breast screening, unspecified documented in this encounter Care Teams Assistant Mechanic Relationship Specialty Start Date End Date David Blue MD [address] [place] [address] PCP - General 04/01/10 02/02/19 documented as of this encounter
--- OUTSIDE RECORDS SUMMARY | 2023-12-03 15:00 | XMS_ITS | Encounter Summary ---
Author Organization [facility] Address [facility] [place] [address] Care Team Providers Care Prize Jacker Name Role Phone David Blue MD Primary Care Provider [phone] Encounter Details Date Type Department Care Team (Late st Contact Info) Description 07/22/2018 11:59 PM EDT Anesthesia Event [place] [address] Vanessa Escalona MD [facility] [place] [address] Anesthesia Record Procedure Summary Procedure Name Responsible [...] OR Notes * Anesthesia Preprocedure Evaluation - Vanessa Escalona MD - 07/22/2018 9:45 AM EDT Pre-Anesthesia Evaluation for: Jennifer Irving [...] OR MULTIPLE performed by David Dejesus MDat [facility] ENDOSCOPY ??? PRO UPPER GI ENDOSCOPY, BIOPSY N/A 03/20/2016 EGD WITH BIOPSY performed by David Dejesus MD at [facility] ENDOSCOPY ??? PRO UPPER GI ENDOSCOPY, DIAGNOSTIC N/A 04/03/2014 EGD, UPPER GI ENDOSCOPY performed by David Dejesus MD at [facility] ENDOSCOPY Social History Tobacco Use ??? Smoking status: Current Every Day Smoker Packs/day: 1.00 Years: 11.00 Pack years: 11.00 ??? Smokeless tobacco: Never Used Substance Use Topics ??? Alcohol use: Yes Comment: rarely Social History Substance and Sexual Activity Drug Use No Allergies Allergen Reactions ??? Meperidine Hcl CIS - violently ill Medications: MAR and/or home medications have been reviewed. Physical Exam: There were no vitals filed for this visit. There is no height or weight on file to calculate BMI. Anesthesia Physical Exam Anesthesia Plan: ASA 2 MAC, with a(n) intravenous induction Patient is a 58 yo female with h/o DM, obesity and Farrell's who presents for EGD Patient denies... Previous anesthesia: Tolerated MAC for similar procedure in the past. Plan: MAC with standard ASA monitors Region - Other Informed Consent: Anesthetic plan and risks discussed with patient. Use of blood products discussed with patient who. Plan discussed with IMPORT MANAGER. PAT Staff Note documented in this encounter Plan of Treatment Upcoming Encounters Date Type Department Care Team (Late st Contact Info) Description 12/07/2023 1:00 PM EDT Appointment [place] [address] 12/07/2023 2:00 PM EDT Office Visit [place] [address] Geronimo Mojica MD [facility] [place] [address] 12/27/2023 11:30 AM EDT Office [place] [address] Noe Cuenca MD [facility] [place] [address] Scheduled Procedures Name Priority Associated Diagnoses Date/Ti me EGD, UPPER GI ENDOSCOPY (WRV U 2.09) Peptic stricture of esophagus documented as of this encounter Visit Diagnoses Not on filedocumented in this encounter Care Teams Prize Jacker Relationship Specialty Start Date End Date David Blue MD [address] [place] [address] PCP - General 04/01/10 02/02/19 documented as of this encounter
--- OUTSIDE RECORDS SUMMARY | 2023-12-03 15:00 | XMS_ITS | Encounter Summary ---
Author Organization [facility] [place] [address] Care Team Providers Care Appraisal Specialist Name Role Phone David Blue MD Primary Care Provider Encounter Details Date Type Department Care Team (Latest Contact Info) Description 07/02/2014 12:45 PM EST - 07/02/2014 11:59 PM EST Hospital [place] [address] CLINIC, David Lees MD [address] [place], [place] [address] Discharge Disposition: Home Social History Tobacco Use [...] daily. 10/2014 documented as of this encounter Plan of Treatment Upcoming Encounters Date Type Department Care Team (Late st Contact Info) Description 12/07/2023 1:00 PM EDT [place] [address] 12/07/2023 2:00 PM EDT Office [place] [address] Geronimo Mojica MD [facility] [place] [address] 12/27/2023 11:30 AM EDT [place] [address] Noe Cuenca MD [facility] [place] [address] Scheduled Procedures Name Priority Associated Diagnoses Date/Ti me EGD, UPPER GI ENDOSCOPY (WRV U 2.09) Peptic stricture of esophagus documented as of this encounter Procedures Procedure Name Priority Date/Time Associated Diagnosis Comments MAMMO 2D DIGITAL SCREEN EDUARD BILATERAL Routine 07/02/2014 1:12 PM EST documented in this encounter Results * Mammography Screen Eduard 2D Bilateral (07/02/2014 [...] Symone Garcia APRN IMG MAMMO ORDERAB LES documented in this encounter Visit Diagnoses Not on filedocumented in this encounter Care Teams Appraisal Specialist Relationship Specialty Start Date End Date David Blue MD [address] [place] [address] PCP - General 04/01/10 02/02/19 documented as of this encounter
--- OUTSIDE RECORDS SUMMARY | 2023-12-03 15:00 | XMS_ITS | Encounter Summary ---
Author Organization Formerly [facility] [place] [address] Care Team Providers Care Lumber Carrier Operator Name Role Phone David Blue MD Primary Care Provider [phone] Encounter Details Date Type Department Care Team (Late Contact Info) Description 09/21/2017 Telephone [place] [address] Ami Chao RN Social History Tobacco Use [...] Telephone Encounter - Ami Chao RN - 09/21/2017 11:58 AM EDT Received VM from Jennifer. States she's almost out of her Protnix and was advised that pharmacy sentus a request a while ago for PA on this. Call placed to pharmacy. Confirmed PA needed on BID Protonix. Call placed to Jennifer. for return call to discuss some questions that are on PA form. documented in this encounter Plan of Treatment Upcoming Encounters Date Type Department Care Team (Late Contact Info) Description 12/07/2023 1:00 PM EDT Appointment [place] [phone] 12/07/2023 2:00 PM EDT Office [place] [phone] Geronimo Mojica MD [facility] [place] [address] 12/27/2023 11:30 AM EDT Office [place] [address] Noe Cuenca MD [facility] [place] [address] Scheduled Procedures Name Priority Associated Diagnoses Date/Ti me EGD, UPPER GI ENDOSCOPY (WRV U 2.09) Peptic stricture of esophagus documented as of this encounter Visit Diagnoses Not on filedocumented in this encounter Care Teams Lumber Carrier Operator Relationship Specialty Start Date End Date David Blue MD [address] [place] [address] PCP - General 04/01/10 02/02/19 documented as of this encounter
--- OUTSIDE RECORDS SUMMARY | 2023-12-03 15:00 | XMS_ITS | Encounter Summary ---
[place] [address] Care Team Providers Care Rehabilitation Aide/Scheduler Name Role Phone David Blue MD Primary Care Provider [phone] Reason for Visit * Reason Onset Date Comments Prior Authorization 05/20/2018 Encounter Details Date Type Department Care Team (Late st Contact Info) Description 05/20/2018 Telephone [place] [address] Yoko Marroquin CCMA Prior Authorization Social History Tobacco Use [...] encounter Miscellaneous Notes * Telephone Encounter - Yoko Marroquin LNA - 05/20/2018 8:39 AM EST Medication Prior Authorization 4L Gastroenterology / [place] [address] Subscriber [place] Phone: Fax: Physician: David Dejesus Return Pharmacy: [facility] Fax: Medication Requested: Pantoprazole Strength: 40mg Frequency: Twice Daily Disp.: 180 Refills: 3 Currently taking: Diagnosis for this medication: GERD ICD-10 code: K21.9 Prior medications trialed in this patient: Esomeprazole Medication: Outcome/Adverse Reactions: Treatment Failure Decision: PA not required Tracking number/Case number/Reference number: [id number] Effective date: Start: End: documented in this encounter Plan of Treatment Upcoming Encounters Date Type Department Care Team (Late st Contact Info) Description 12/07/2023 1:00 PM EDT [place]oint[place] [address] 12/07/2023 2:00 PM EDT Office Visit Thoracic Surgery at [place] [phone] Geronimo Mojica MD [facility] [place] [address] 12/27/2023 11:30 AM EDT Office [place] [address] Noe Cuenca MD [facility] [place] [address] Scheduled Procedures Name Priority Associated Diagnoses Date/Ti me EGD, UPPER GI ENDOSCOPY (WRV U 2.09) Peptic stricture of esophagus documented as of this encounter Visit Diagnoses Not on filedocumented in this encounter Care Teams Rehabilitation Aide/Scheduler Relationship Specialty Start Date End Date David Blue MD [address] [place] [address] PCP - General 04/01/10 02/02/19 documented as of this encounter
--- OUTSIDE RECORDS SUMMARY | 2023-12-03 15:00 | XMS_ITS | Encounter Summary ---
Author Organization [facility] [place] [address] Care Team Providers Care Medical Assistant Prn Name Role Phone David Blue MD Primary Care Provider + [phone] Encounter Details Date Type Department Care Team (Late st Contact Info) Description 10/12/2018 Telephone [place] [phone] Mariela Jordan Social History Tobacco Use Types Packs/Day Years [...] encounter Miscellaneous Notes * Telephone Encounter - Mariela Jordan - 10/12/2018 12:11 PM EDT Jennifer Irving [id number] Diagnosis: Farrell's Esophagus 1. Have you ever had an EGD before? [x] YES [] NO If Yes, Date of Last EGD: 03/20/2016 If yes, did you have any problems with the procedure? [] YES [x] NO Explain: What type of sedation was used: consult 2. Do you take any Blood Thinners? [] YES [x] NO If Yes, type: 3. Do you have a Pacemaker or Defibrillator device? [] YES [x] NO If Yes send inMobivox message to [facility] ENDO DEVICE CHECK 4. Are you a diabetic? [x] YES [] NO If yes, controlled by meds or diet? Insulin/Diet 5. Do you have any Allergies to Eggs, Latex or Medications? [x] YES [] NO If Yes, what: See E- 6. Do you take any Oral Iron Supplements (Including multi vitamins)? [] YES [x] NO 7. Do you have a history of three or more abdominal surgeries? [] YES [x] NO 8. Have you had a problem with sedation or anesthesia? [x] YES [] NO 9. Do you have a c-pap machine or oxygen tank? [] C-PAP [] Oxygen [x] NO 10. Do you take prescription narcotic pain medications? [] YES [x] NO 11. You must have a responsible libertarian stay at the facility during your procedure and drive you home? [x] YES 12. Is there any other information you would like to give us to aid in scheduling? Height: 5'1 Weight: 178 BMI: 33.6 Age:58 y.o. documented in this encounter Plan of Treatment Upcoming Encounters Date Type Department Care Team (Late st Contact Info) Description 12/07/2023 1:00 PM EDT Appointment [place] [phone] 12/07/2023 2:00 PM EDT Office [place] [phone] Geronimo Mojica MD [facility] [place] [address] 12/27/2023 11:30 AM EDT Office [place] [address] Noe Cuenca MD [facility] [place] [address] Scheduled Procedures Name Priority Associated Diagnoses Date/Ti me EGD, UPPER GI ENDOSCOPY (WRV U 2.09) Peptic stricture of esophagus documented as of this encounter Visit Diagnoses Not on filedocumented in this encounter Care Teams Medical Assistant Prn Relationship Specialty Start Date End Date David Blue MD [address] [place] [address] PCP - General 04/01/10 02/02/19 documented as of this encounter
--- OUTSIDE RECORDS SUMMARY | 2023-12-03 15:00 | XMS_ITS | Encounter Summary ---
[place] [address] Care Team Providers Care Director And Professor Name Role Phone David Blue MD Primary Care Provider + [phone] Reason for Visit * Reason Onset Date Comments Medication Refill 09/20/2018 Encounter Details Date Type Department Care Team (Late Contact Info) Description 09/20/2018 Telephone [place] [address] Francoise Vides CMA GASTROENTEROLOGY DEPT Medication Refill Social History Tobacco Use Types [...] Telephone Encounter - Francoise Vides CMA - 09/20/2018 1:07 PM EDT Called the patient regarding refills for her medication pantoprazole. She stated that she still hasrefills left for the medication. In addition, I inquire that she has not been seen in clinic or hadany recent endoscopy done. The patient stated that she see's the provider that prescribed her the medication in conjunction with her 's visit so he can monitor her covington's esophagus. documented in this encounter Plan of Treatment Upcoming Encounters Date Type Department Care Team (Late st Contact Info) Description 12/07/2023 1:00 PM EDT Appointment [place] [address] 12/07/2023 2:00 PM EDT Office Visit Thoracic Surgery at [place] [phone] Geronimo Mojica MD [facility] [place] [address] 12/27/2023 11:30 AM EDT Office [place] [address] Noe Cuenca MD [facility] [place] [address] Scheduled Procedures Name Priority Associated Diagnoses Date/Ti me EGD, UPPER GI ENDOSCOPY (WRV U 2.09) Peptic stricture of esophagus documented as of this encounter Visit Diagnoses Not on filedocumented in this encounter Care Teams Director And Professor Relationship Specialty Start Date End Date David Blue MD [address] [place] [address] PCP - General 04/01/10 02/02/19 documented as of this encounter
--- OUTSIDE RECORDS SUMMARY | 2023-12-03 15:00 | XMS_ITS | Encounter Summary ---
Author Organization Formerly [facility] [place] [address] Care Team Providers Care Pecan Mallow Dipper Name Role Phone David Blue MD Primary Care Provider + [phone] Encounter Details Date Type Department Care Team (Late Contact Info) Description 03/31/2016 Telephone [place] [address] Francoise Vides CMA GASTROENTEROLOGY DEPT Social History [...] Telephone Encounter - Francoise Vides CMA - 03/31/2016 10:25 AM EST Left a V/M for the patient to call me back regarding the time lapse in her esomeprazole. Awaiting response. 04/01/2016 @ 1:25: Attempted to get a hold of patient. documented in this encounter Plan of Treatment Upcoming Encounters Date Type Department Care Team (Late st Contact Info) Description 12/07/2023 1:00 PM EDT Appointment [place] [address] 12/07/2023 2:00 PM EDT Office Visit [place] [address] Geronimo Mojica MD [facility] [place] [address] 12/27/2023 11:30 AM EDT Office [place] [phone] Noe Cuenca MD [facility] [place] [address] Scheduled Procedures Name Priority Associated Diagnoses Date/Ti me EGD, UPPER GI ENDOSCOPY (WRV U 2.09) Peptic stricture of esophagus documented as of this encounter Visit Diagnoses Not on filedocumented in this encounter Care Teams Pecan Mallow Dipper Relationship Specialty Start Date End Date David Blue MD [address] [place] [address] PCP - General 04/01/10 02/02/19 documented as of this encounter
--- OUTSIDE RECORDS SUMMARY | 2023-12-03 15:00 | XMS_ITS | Encounter Summary ---
Author Organization Formerly [facility] [place] [address] Care Team Providers Care Armhole Feller Handstitching Machine Name Role Phone David Blue MD Primary Care Provider [phone] Encounter Details Date Type Department Care Team (Late st Contact Info) Description 12/24/2014 Orders [place] [phone] David Dejesus MD [facility] [place] [address] Social History Tobacco Use Types Packs/Day Years [...] PM EDT Appointment [place] [phone] 12/07/2023 2:00 PM EDT Office [place] [phone] Geronimo Mojica MD [facility] [place] [address] 12/27/2023 11:30 AM EDT Office [place] [phone] Noe Cuenca MD [facility] [place] [address] Scheduled Procedures Name Priority Associated Diagnoses Date/Ti me EGD, UPPER GI ENDOSCOPY (WRV U 2.09) Peptic stricture of esophagus documented as of this encounter Visit Diagnoses Not on filedocumented in this encounter Care Teams Armhole Feller Handstitching Machine Relationship Specialty Start Date End Date David Blue MD [address] [place] [address] PCP - General 04/01/10 02/02/19 documented as of this encounter
--- OUTSIDE RECORDS SUMMARY | 2023-12-03 15:00 | XMS_ITS | Encounter Summary ---
Author Organization [facility] Address [facility] [place] [address] Care Team Providers Care Blemish Remover Name Role Phone David Blue MD Primary Care Provider [phone] Encounter Details Date Type Department Care Team (Late st Contact Info) Description 04/30/2016 Orders [place] [address] David Dejesus MD [facility] DR GASTROENTEROLOGY [place], [place] [phone] Visit for screening mammogram Social History Tobacco Use Types Packs/Day Years [...] 12/07/2023 1:00 PM EDT Appoint[place] [phone] 12/07/2023 2:00 PM EDT Office [place] [address] Geronimo Mojica MD [facility] DR THORACIC SURGERY [place], [place] [address] 12/27/2023 11:30 AM EDT Office [place] [address] Noe Cuenca MD [facility] [place] [address] Scheduled Procedures Name Priority Associated Diagnoses Date/Ti me EGD, UPPER GI ENDOSCOPY (WRV U 2.09) Peptic stricture of esophagus documented as of this encounter Visit Diagnoses Diagnosis Visit for screening mammogram Other screening mammogram documented in this encounter Care Teams Blemish Remover Relationship Specialty Start Date End Date David Blue MD [address] [place] [address] PCP - General 04/01/10 02/02/19 documented as of this encounter
--- OUTSIDE RECORDS SUMMARY | 2023-12-03 15:00 | XMS_ITS | Encounter Summary ---
Author Organization [facility] [place] [address] Care Team Providers Care Journeyman Mechanic Name Role Phone David Blue MD Primary Care Provider + [phone] Encounter Details Date Type Department Care Team (Late Contact Info) Description 06/22/2018 Telephone [place] [address] Erin Lynn Social History Tobacco Use Types [...] * Telephone Encounter - Erin Lynn - 06/22/2018 10:05 AM EST Called pt to schedule a 2 year surv for Farrell's esophagus last 03/26/16. No answer so left a vm. documented in this encounter Plan of Treatment Upcoming Encounters Date Type Department Care Team (Late st Contact Info) Description 12/07/2023 1:00 PM EDT Appointment [place] [address] 12/07/2023 2:00 PM EDT Office Visit [place] [address] Geronimo Mojica MD [facility] [place] [address] 12/27/2023 11:30 AM EDT Office Visit [place] [address] Noe Cuenca MD [facility] [place] [address] Scheduled Procedures Name Priority Associated Diagnoses Date/Ti me EGD, UPPER GI ENDOSCOPY (WRV U 2.09) Peptic stricture of esophagus documented as of this encounter Visit Diagnoses Not on filedocumented in this encounter Care Teams Journeyman Mechanic Relationship Specialty Start Date End Date David Blue MD [address] [place] [address] PCP - General 04/01/10 02/02/19 documented as of this encounter
--- OUTSIDE RECORDS SUMMARY | 2023-12-03 15:01 | XMS_ITS | Encounter Summary ---
Author Organization [facility] Address [address] [place] [address] Care Team Providers Care Contamination Consultant Name Role Phone David Blue MD Primary Care Provider [phone] Encounter Details Date Type Department Care Team (Late st Contact Info) Description 02/01/2023 Lab Requisition [facility] Pathology & Laboratory Medicine - [facility] [address], [place] [id number] Outr Resulting Lab, Provider Social History Tobacco Use Types Packs/Day Years Used Date Smoking Tobacco: Never Assessed Sex and Gender Information Value Date Recorded Sex Assigned at Not on file Gender Identity Not on file Sexual Orientation Not on file documented as of this encounter Plan of Treatment Not on file documented as of this encounter Procedures Procedure Name Priority Date/Time Associated Diagnosis Comments VANCOMYCIN, RANDOM Routine 02/01/2023 7:55 EDT documented in this encounter Results * VANCOMYCIN, RANDOM (02/01/2023 7:55 EDT) Vancomycin Random 11.7 See Note ??g/mL 02/01/2023 17:[address] [facility] Comment: NOTE: Reference Ranges: Trough: ??10.0 - 20.0 ug/mL Peak: ??25.0 - 50.0 ug/mL Blood VENOUS BLOOD / Unknown 02/01/2023 7:55 EDT 02/01/2023 17:12 EDT Provider Outr Resulting Lab CHEMISTRY & BLOOD GAS ORDERABLES Performing Organization Address City/State/[facility] Co de Phone Number [facility] [address] [place] [address] documented in this encounter Visit Diagnoses Not on filedocumented in this encounter Care Teams Contamination Consultant Relationship Specialty Start Date End Date David Blue MD [address] [place] [address] PCP - General 07/15/09 documented as of this encounter
--- OUTSIDE RECORDS SUMMARY | 2023-12-03 15:01 | XMS_ITS | Encounter Summary ---
Author Organization Formerly [facility] Address [facility] [place] [address] Care Team Providers Care Cleaner Furniture Name Role Phone Ana Gillespie APRN Primary Care Provider [phone] Encounter Details Date Type Department Care Team (Late st Contact Info) Description 09/06/2009 Orders Only Gynecology Oncology at [place] [phone] Kathy Romero MD [facility] [place] [address] Social History Tobacco Use Types Packs/Day Years Used Date Smoking Tobacco: Never Assessed Sex and Gender Information Value Date Recorded Sex Assigned at Not on file Gender Identity Not on file Sexual Orientation Not on file documented as of this encounter Plan of Treatment Upcoming Encounters Date Type Department Care Team (Late st Contact Info) Description 12/07/2023 1:00 PM EDT Appointment Pulmonology at [place] [phone] 12/07/2023 2:00 PM EDT Office Visit Thoracic Surgery at [place] [phone] Geronimo Mojica MD [facility] [place] [address] 12/27/2023 11:30 AM EDT [place] [address] Noe Cuenca MD [facility] [place] [address] (work) Scheduled Procedures Name Priority Associated Diagnoses Date/Ti me EGD, UPPER GI ENDOSCOPY (WRV U 2.09) Peptic stricture of esophagus documented as of this encounter Procedures Procedure Name Priority Date/Time Associated Diagnosis Comments NON-FLEXIBLE NANNY FINAL REPORT Routine 09/06/2009 12:50 PM EDT documented in this encounter Results * Non-Membership Coordinator Final Report (09/06/2009 12:50 PM EDT) Non-Membership Coordinator Final Report [id number] ? Location: [facility] The signing pathologist has (i) examined the relevant preparation(s) for the specimen(s) and (ii) rendered or confirmed the diagnosis(es). . ? Pathology Non-Membership Coordinator Cytology Final Report Clinical Information Specimen Source: ?Pelvic Washings Clinical History/Impressio n: ?? DX: pelvic mass: Gross Description: ?? Received ??fresh, approximately 100 ml. total volume of ?? cloudy, red fluid. ?? Total Preparation: Liquid Based Prep 1; Cell Block 1. Interpretation Specimen submitted is satisfactory. Diagnosis Negative for Malignancy 09/09/09 ?Screened by: ? SLA ?Rescreened by: ?? SBT 09/09/09 ?Verified by: ? Venita Ledezma MD ? Pathologist ? (Electronic Signature) Comment Pelvic Washings: ? Blood only. ? No mesothelial cells identified. ? No malignant cells identified. Cell block confirms cytologic impression. ??Please see concurrent surgical specimen, [id number], for additional information. CERNER MILLENNIUM 09/06/2009 12:5 0 PM EDT Kathy Romero MD PATHOLOGY/CYTOLOGY O RDERABLES DARCY BARNETT documented in this encounter Visit Diagnoses Not on filedocumented in this encounter Additional Health Concerns Infection Onset Date Last Indicated Resolved Time Rule Out COVID-19 08/15/2022 08/15/2022 08/15/2022 11:30 AM EDT Rule Out COVID-19 08/15/2022 08/15/2022 08/15/2022 3:01 PM EDT Rule Out C. difficile 08/19/2022 08/19/20222022 8:33 PM EDT documented as of this encounter Care Teams Cleaner Furniture Relationship Specialty Start Date End Date Ana Gillespie APRN [address] [place] [address] PCP - General Family Medicine 02/03/19 documented as of this encounter
--- OUTSIDE RECORDS SUMMARY | 2023-12-03 15:01 | XMS_ITS | Encounter Summary ---
Author Organization [facility] Address [address] [place] [address] Care Team Providers Care Aircraft Captain Name Role Phone Unavailable Primary Care Provider Unavailabl e Encounter Details Date Type Department Care Team (Late st Contact Info) Description 07/12/2009 Results Only [facility] Laboratory Services - [facility] ([facility] [place] [address] [place], [place] [address] Sergey Kraus, [address] [facility] [address] [place], [place] [id number] Social History Tobacco Use Types Packs/Day Years Used Date Smoking Tobacco: Never Assessed Sex and Gender Information Value Date Recorded Sex Assigned at Not on file Gender Identity Not on file Sexual Orientation Not on file documented as of this encounter Plan of Treatment Not on file documented as of this encounter Procedures Procedure Name Priority Date/Time Associated Diagnosis Comments SURGICAL PATHOLOGY Routine 07/12/2009 0:00 EST documented in this encounter Results * SURGICAL PATHOLOGY (07/12/2009 0:00 EST) Pathology Report: SURGICAL PATHOLOGY REPORT ? Reports generated via electronic interface contain original data; ? however they are lacking the format of the original report. ? Caution should be taken when reading/interpreting unformatted reports. ? Name: ? IRVING, JENNIFER ? Accession #: ? [id number] ? : ? 1960 (Age: 49) ??F ? Collect Date: ? 07/12/2009 ? Location: ? [facility] ? Receive Date: ? 07/12/2009 ? Provider: SERGEY KRAUS DO ? Copy to: FLAVIO DUEÑAS MD ? Final Pathologic Diagnosis: ? A. ?Duodenum, biopsy: ? 1. ?Peptic duodenitis. ??See comment. ? B. ?Stomach, antrum, biopsy: ? 1. ?Antral mucosa with chronic gastritis. ? 2. ? No Helicobacter pylori-like microorganisms identified on routine H&E ? stain. ? C. ?Esophagus, distal, biopsies: ? 1. 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 ? 2. ? No dysplasia identified. ? D. ?Esophagus, 28 cm, biopsies: ? 1. ?Squamous and columnar mucosa with goblet cell intestinal metaplasia (Farrell's esophagus). ? 2. ? No dysplasia identified. ? E. ?Esophagus, proximal, biopsies: ? 1. ?Squamous mucosa with rare intraepithelial eosinophils and reactive ?? changes. ? Comment: ? [employer] portions of this case were reviewed at the intradepartmental consultation conference. ??(Dr. Urena)/[facility] ? Document reviewed and electronically signed by: ? Sohail Urena, ? Report ??Date: 07/15/2009 17:16 ? By the signature above, the attending physician certifies that he/she has ? personally conducted a gross and/or microscopic examination of the described ? specimens and rendered or confirmed the above diagnosis. ? Specimen(s) Received: ? A. ?Duodenal bx ? B. ? Antrum bx ? C. ? Esophagus distal ? D. ? Esophagus 28 cm ? E. ? Esophagus proximal ? Clinical History: ? Epigastric pain + reflux ? Gross Description: ? Received in Keri's fixative labelled Jennifer Irving and ? duodenum biopsy #1 is a 0.2 x 0.2 x 0.2 cm, kirby-pink soft tissue. ??The ? specimen is submitted entirely as (A). ? Received in Nugg-ittiffanie's fixative labelled Jennifer Irving and biopsy ? antrum is a 0.4 x 0.4 x 0.3 cm, kirby-pink soft tissue. ??The specimen is ? submitted entirely as (B). ? Received in [facility]'s fixative labelled Jennifer Irving and #3 biopsy ?? distal esophagus are three kirby-pink soft tissues, each averaging 0.3 x 0.3 x ?? 0.2 cm. ??The specimen is submitted entirely as (C). ? Received in [facility]'s fixative labelled Jennifer Irving and biopsy ? esophagus #4 are four kirby-pink soft tissues ranging in size from 0.2 x 0.2 x ?? 0.2 cm to 0.2 x 0.1 x 0.1 cm. ??The specimen is submitted entirely as (D). ? Received in Venuse's fixative labelled Irving, Jennifer and biopsy ? proximal esophagus are two kirby-pink soft tissues ranging in size from 0.3 x 0.2 x 0.2 cm to 0.2 x 0.2 x 0.1 cm. ??The specimen is submitted entirely as (E). ? (Dr. Kearney)/[facility] ? End of Report ? DULCE DAVIES 07/12/2009 07/12/2009 19: 11 EST Sergey Kraus DO PATHOLOGY ORDER BENI [facility] [address] [place] [address] documented in this encounter Visit Diagnoses Not on filedocumented in this encounter
--- OUTSIDE RECORDS SUMMARY | 2023-12-03 15:01 | XMS_ITS | Encounter Summary ---
Author Organization [facility] Address [address] [place] [address] Care Team Providers Care Solid Glass Rod Dowel Machine Operator Name Role Phone David Blue MD Primary Care Provider [phone] Encounter Details Date Type Department Care Team (Late st Contact Info) Description 07/11/2003 Results Only [facility] - Maple conversion [address] [place] [address] Rock Samson MD [address] [place], [place] [address] Social History Tobacco Use Types Packs/Day Years Used Date Smoking Tobacco: Never Assessed Sex and Gender Information Value Date Recorded Sex Assigned at Not on file Gender Identity Not on file Sexual Orientation Not on file documented as of this encounter Plan of Treatment Not on file documented as of this encounter Procedures Procedure Name Priority Date/Time Associated Diagnosis Comments SURGICAL PATHOLOGY Routine 07/11/2003 0:00 EST documented in this encounter Results * SURGICAL PATHOLOGY (07/11/2003 0:00 EST) Pathology Report: SURGICAL PATHOLOGY REPORT Reports generated via electronic interface contain original data; however they are lacking the format of the original report. Caution should be taken when reading/interpreting unformatted reports. Name: ? JENNIFER IRVING ? Accession #: ? [id number] ? : ? 1960 (Age: 43) ??F ? Collect Date: ? 07/11/2003 ? Location: ? [facility] ? Receive Date: ? 07/11/2003 ? Provider: ROCK SAMSON MD Copy to: DAVID BLUE MD ? Final Pathologic Diagnosis: A. ?Uterus, ovary and fallopian tube, right, simple hysterectomy and unilateral salpingo-oophorectom y: 1. ?Uterus: ? 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 See comment. ?- Endometrium: ?- Disordered proliferative. ? - Cervix: ?- Squamous metaplasia with chronic cervicitis, mild. ? - Serosa: ??- Fibrous adhesions, focal. 2. ?Ovary: ? - Follicular cyst (4.0 cm). - Fibrous adhesions, focal. 3. ?Fallopian tube: ? - No significant pathologic features. B. ?Appendix, appendectomy: 1. ?Appendix with no pathologic features. Comment: ? Plate Mounter sections of (A) have been reviewed at the intradepartmental consultation conference, ??A discrepancy between the laterality of the fallopian tube as indicated on the requisition form and the gross impression has been discussed with Dr. Samson' s nursing staff, who indicated that the excised fallopian tube was from the right side. (Dr. Narayan)/[place] Document reviewed and electronically signed by: MARIA DE JESUS NARAYAN MD Report ??Date: 07/13/2003 16:19 By the signature above, the attending physician certifies that he/she has personally conducted a gross and/or microscopic examination of the described specimens and rendered or confirmed the above diagnosis. Specimen(s) Received: A. ?Uterus + right ovary + cervix, left fallopian tube B. ?Appendix Clinical History: ? Chronic pelvic pain, dysmenorrhea, dyspareunia, myomatous uterus Gross Description: ? Received in formalin labeled Moffett and cervix, uterus, and right ovary, left fallopian tube is a 660 gram product of a hysterectomy and unilateral salpingo-oophorectom y. ??The uterus measures 7.0 cm fundus to cervix, 5.0 cm cornu to cornu, and 14.0 cm anterior to posterior. ??The endometrial cavity is distorted by an intramural mass . Sectioning of ??the uterus into anterior and posterior halves reveals a smooth, kirby 0.2 cm thick endometrium. ??The intramural mass is present within the anterior myometrium and measures 8.0 cm anterior to posterior, 8.0 cm medial to lateral, and 8.0 cm superior to inferior. ??The mass is well-circumscribed, whorled, with a kirby-pink center and a yellow-white periphery without hemorrhage or necrosis. ?? The posterior endomyometrium is 2.5 cm at its thickest point and is without masses. ??Attached to the right side of the uterus is a 5.0 cm long x 0.7 cm diameter unremarkable fallopian tube and a 2.2 x 1.5 x.1.0 cm ovary. ??The surface of ??the ovary exhibits a unilocular smooth-walled clear fluid-filled 4.0 cm cyst. ??Also received in the same container is an amputated unoriented cervix without abnormalities. BLOCK BARLOW A1 ?Anterior cervix A2 ?Posterior cervix A3-A6 ?Plate Mounter sections of the anterior intramural mass A7 ?Anterior endomyometrium A8 ?Full thickness endomyometrium A9 ?Plate Mounter sections ovary and cyst A10 ?Plate Mounter sections fallopian tube and ovary A11 ?Ectocervix Received in formalin labeled Moffett and appendix is a 10.0 cm long x 0.6 cm diameter appendix with a moderate amount of mesoappendix. ??The serosa is unremarkable. ??Serial sectioning reveals a wall thickness that varies from 0.1 to 0.3 cm. ??No fecaliths are identified. ??Four customer success representative sections are submitted as (B), including the resection margin, en face, and the distal tip, bisected. ?? (Dr. Lopez)/[place] End of Report DULCE DAVIES 07/11/2003 07/11/2003 15: 14 EST Rock Samson MD PATHOLOGY ORDERABLES DULCE DAVIES [address] [place] [address] documented in this encounter Visit Diagnoses Not on filedocumented in this encounter Care Teams Solid Glass Rod Dowel Machine Operator Relationship Specialty Start Date End Date David Blue MD [address] [place] [address] PCP - General 07/15/09 documented as of this encounter
--- OUTSIDE RECORDS SUMMARY | 2023-12-03 15:01 | XMS_ITS | Encounter Summary ---
Author Organization [facility] Address [address] [place] [address] Care Team Providers Care Mainspring Fabrication Supervisor Name Role Phone David Blue MD Primary Care Provider [phone] Encounter Details Date Type Department Care Team (Late st Contact Info) Description 10/30/2003 Results Only [facility] - Maple conversion [address] [place] [address] Sergey Kraus, DO [address] [facility] ,[address] [place] [address] Social History Tobacco Use Types Packs/Day Years Used Date Smoking Tobacco: Never Assessed Sex and Gender Information Value Date Recorded Sex Assigned at Not on file Gender Identity Not on file Sexual Orientation Not on file documented as of this encounter Plan of Treatment Not on file documented as of this encounter Procedures Procedure Name Priority Date/Time Associated Diagnosis Comments SURGICAL PATHOLOGY Routine 10/30/2003 0:00 EDT documented in this encounter Results * SURGICAL PATHOLOGY (10/30/2003 0:00 EDT) Pathology Report: SURGICAL PATHOLOGY REPORT Reports generated via electronic interface contain original data; however they are lacking the format of the original report. Caution should be taken when reading/interpreti ng unformatted reports. Name: ? JENNIFER IRVING ? Accession #: ? [id number] ? : ? 1960 (Age: 43) ??F ? Collect Date: ? 10/30/2003 ? Location: ? [facility] ? Receive Date: ? 10/30/2003 ? Provider: SERGEY KRAUS DO Copy to: DAVID BLUE MD ? Final Pathologic Diagnosis: A. ?Stomach, antrum, biopsy: 1. ?No specific pathologic features. B. 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 2. ?No dysplasia. C. ?Mid esophagus, biopsies: 1. ?Hyperplastic squamous mucosa with intraepithelial eosinophils, consistent with reflux. Document reviewed and electronically signed by: Jose Luis Ellis MD Report ??Date: 11/01/2003 15:50 By the signature above, the attending physician certifies that he/she has personally conducted a gross and/or microscopic examination of the described specimens and rendered or confirmed the above diagnosis. Specimen(s) Received: A. ?Bx antrum B. ?Bx distal esophagus C. ?Bx mid esophagus Clinical History: ? GERD Gross Description: ? Received in Hollande's fixative labelled Moffett and bx antrum is a 0.3 x 0.2 x 0.1 cm irregular tissue. ??The specimen is entirely submitted as (A). Received in Hollande's fixative labelled Moffett and bx distal esophagus are four irregular tissues which range in measurement from 0.2 x 0.2 x 0.1 cm to 0.7 x 0.3 x 0.1 cm. ??The specimen is entirely submitted as (B). Received in Hollande's fixative labelled Moffett and bx mid esophagus are two irregular tissues which measure 0.2 x 0.2 x 0.1 cm and 0.3 x 0.2 x 0.1 cm. ??The specimen is entirely submitted as (C). ??(Dr. Haney-OFELIA)/[facility] End of Report [facility] 10/30/2003 10/30/2003 14: 43 EDT Sergey Kraus DO PATHOLOGY ORDER [facility]I [facility] [address] [place] [address] documented in this encounter Visit Diagnoses Not on filedocumented in this encounter Care Teams Mainspring Fabrication Supervisor Relationship Specialty Start Date End Date David Blue MD [address] [place] [address] PCP - General 07/15/09 documented as of this encounter
--- OUTSIDE RECORDS SUMMARY | 2023-12-03 15:01 | XMS_ITS | Encounter Summary ---
[place] [address] Care Team Providers Care Courtesy Clerk Name Role Phone David Blue MD Primary Care Provider [phone] Reason for Visit * Reason Onset Date Comments Weight Management 04/19/2013 Encounter Details Date Type Department Care Team (Late st Contact Info) Description 04/19/2013 Telephone Pediatric & Adolescent Medicine at [address] [phone] Guanakito Cronin MD [address] [place] [address] Weight Management Social History Tobacco Use Types Packs/Day Years Used Date Smoking Tobacco: Every Day Sex and Gender Information Value Date Recorded Sex Assigned at Not on file Gender Identity Not on file Sexual Orientation Not on file documented as of this encounter Miscellaneous Notes * Telephone Encounter - Richelle Luis LNA - 04/19/2013 1:10 PM EST WRONG PT - CLOSED ENC * Telephone Encounter - Ольга Michael RN - 04/19/2013 10:57 AM EST I am leaving for the day, if you would send your answer to Lilliana, she can call Seble. Janeen Nuñez * Telephone Encounter - Richelle Luis LNA - 04/19/2013 8:54 AM EST Seble from the [facility] hasn't met with family recently and was calling to find out if she needsto continue services or if we are discharging the baby? She can make it over today so she is hopeful to get an answer soon. Richelle documented in this encounter Plan of Treatment Upcoming Encounters Date Type Department Care Team (Late st Contact Info) Description 12/07/2023 1:00 PM EDT Appointment [place] [address] 12/07/2023 2:00 PM EDT Office Visit [place] [phone] Geronimo Mojica MD [facility] DR THORACIC [place] [address] 12/27/2023 11:30 AM EDT Office [place] [phone] Noe Cuenca MD [facility] [place] [address] Scheduled Procedures Name Priority Associated Diagnoses Date/Ti me EGD, UPPER GI ENDOSCOPY (WRV U 2.09) Peptic stricture of esophagus documented as of this encounter Visit Diagnoses Not on filedocumented in this encounter Care Teams Courtesy Clerk Relationship Specialty Start Date End Date David Blue MD [address] [place] [address] PCP - General 04/01/10 02/02/19 documented as of this encounter
--- OUTSIDE RECORDS SUMMARY | 2023-12-03 15:01 | XMS_ITS | Referral Summary ---
Author Organization [facility] Address [address] [place] [address] Care Team Providers Care Silver Solderer Name Role Phone David Blue MD Primary Care Provider [phone] Social History Tobacco Use Types Packs/Day Years Used Date Smoking Tobacco: Never Assessed Sex and Gender Information Value Date Recorded Sex Assigned at Not on file Gender Identity Not on file Sexual Orientation Not on file Plan of Treatment Not on file Care Teams Silver Solderer Relationship Specialty Start Date End Date David Blue MD [address] [place] [address] PCP - General 07/15/09
--- OUTSIDE RECORDS SUMMARY | 2023-12-03 15:01 | XMS_ITS | Encounter Summary ---
Author Organization [facility] Address [address] [place] [address] Care Team Providers Care Lvn Name Role Phone David Blue MD Primary Care Provider [phone] Encounter Details Date Type Department Care Team (Late st Contact Info) Description 08/13/2022 Lab Requisition [facility] Pathology & Laboratory Medicine - [facility] [address] [place], [place] [address] Outr Resulting Lab, Provider Social History Tobacco [...] Procedure Name Priority Date/Time Associated Diagnosis Comments LEGIONELLA ANTIGEN DETECTION, URINE Routine 08/12/2022 18:12 EDT documented in this encounter Results * LEGIONELLA ANTIGEN DETECTION, URINE (08/12/2022 18:12 EDT) Legionella Antigen Detection Negative Negative 08/13/2022 23:31 EDT [facility] Urine URINE / Unknown 08/12/2022 1 8:12 EDT 08/13/2022 18:30 EDT Provider Outr Resulting Lab MICROBIOLOGY - GENERAL ORDERABLES [facility] [address] [place] [address] documented in this encounter Visit Diagnoses Not on filedocumented in this encounter Care Teams Lvn Relationship Specialty Start Date End Date David Blue MD [address] [place] [address] PCP - General 07/15/09 documented as of this encounter
--- OUTSIDE RECORDS SUMMARY | 2023-12-03 15:01 | XMS_ITS | Encounter Summary ---
Author Organization [facility] Address [facility] [place] [address] Care Team Providers Care Dough Mixing Machine Operator Name Role Phone David Blue MD Primary Care Provider [phone] Reason for Referral * Surgical - Closed Specialty Diagnoses / Procedures Referred By Esperanza rodríguez Referred To Contact General Surgery Diagnoses Esophageal reflux David Dejesus MD [facility] [place] [address] Baljinder Maharaj MD [facility] [place] [address] Referral ID Status Reason Start Date Expiration Date V isits Requested Visits Authorized [id number] Closed Specialty Service Requested 01/16/2014 07/15/2014 1 1 Encounter Details Date Type Department Care Team (Late st Contact Info) Description 01/16/2014 Orders [place] [address] David Dejesus MD [facility] [place] [address] Esophageal reflux (Primary Dx) Social History Tobacco Use Types [...] 12/07/2023 1:00 PM EDT [place]oint[place] [address] 12/07/2023 2:00 PM EDT Office [place] [address] Geronimo Mojica MD [facility] [place] [address] 12/27/2023 11:30 AM EDT Office [place] [address] Noe Cuenca MD [facility] [place] [address] Scheduled Orders Name Type Priority Associated Diagnoses Orde r Schedule UPPER GI ENDOSCOPY Procedures Routine Esophageal reflux Ordered: 01/16/2014 Scheduled Procedures Name Priority Associated Diagnoses Date/Ti me EGD, UPPER GI ENDOSCOPY (WRV U 2.09) Peptic stricture of esophagus Scheduled Referrals Name Type Priority Associated Diagnoses Orde r Schedule Referral to General Surgery Outpatient Referral Routine Esophageal reflux Ordered: 01/16/2014 documented as of this encounter Visit Diagnoses Diagnosis Esophageal reflux- Primary documented in this encounter Care Teams Dough Mixing Machine Operator Relationship Specialty Start Date End Date David Blue MD [address] [place] [address] PCP - General 04/01/10 02/02/19 documented as of this encounter
--- OUTSIDE RECORDS SUMMARY | 2023-12-03 15:01 | XMS_ITS | Encounter Summary ---
Author Organization [facility] Address [address] [place] [address] Care Team Providers Care Senior Clinical Research Associate Name Role Phone David Blue MD Primary Care Provider [phone] Encounter Details Date Type Department Care Team (Late st Contact Info) Description 04/28/2002 Results Only [facility] - Maple conversion [address] [place] [address] [place] [id number] Social History Tobacco Use Types Packs/Day Years Used Date Smoking Tobacco: Never Assessed Sex and Gender Information Value Date Recorded Sex Assigned at Not on file Gender Identity Not on file Sexual Orientation Not on file documented as of this encounter Plan of Treatment Not on file documented as of this encounter Procedures Procedure Name Priority Date/Time Associated Diagnosis Comments CYTOPATHOLOGY Routine 04/28/2002 0:00 EST documented in this encounter Results * CYTOPATHOLOGY (04/28/2002 0:00 EST) Pathology Report: CYTOPATHOLOGY REPORT Reports generated via electronic interface contain original data; however they are lacking the format of the original report. Caution should be taken when reading/interpreti ng unformatted reports. Name: ? JENNIFER IRVING ? Accession #: ? [id number] : ? 1960 (Age: 41) ??F ?Collect Date: ? 04/28/2002 Location: ? [facility] ? Receive Date: ? 05/04/2002 Provider: ?OLAMIDE MCCLAIN CNM Copy to: ? Specimen/Source: ?ThinPrep Pap Test, Cervix/Endocervix Last Menstrual Period: ? 02/24/02 Menstrual/Pregnanc y Status: ? SPECIMEN ADEQUACY ? Satisfactory for Evaluation - transformation zone component present GENERAL CATEGORIZATION ? Negative for Intraepithelial Lesion or Malignancy ? Document reviewed and electronically signed by: ? ROCIO Maldonado(ASCP) ? Report Date: ??05/09/2002 07:44 End of Report DULCE DAVIES 04/28/2002 05/04/2002 Olamide Lachelle [facility] ORDERABLES Performing Organization Address City/State/[facility] Co de Phone Number DULCE DAVIES [address] [place] [address] documented in this encounter Visit Diagnoses Not on filedocumented in this encounter Care Teams Senior Clinical Research Associate Relationship Specialty Start Date End Date David Blue MD [address] [place] [address] PCP - General 07/15/09 documented as of this encounter
--- OUTSIDE RECORDS SUMMARY | 2023-12-03 15:01 | XMS_ITS | Encounter Summary ---
Author Organization [facility] Address [address] [place] [address] Care Team Providers Care Provider Relations Rep Name Role Phone David Blue MD Primary Care Provider [phone] Encounter Details Date Type Department Care Team (Late st Contact Info) Description 07/18/2021 Lab Requisition [facility] Pathology & Laboratory Medicine - [facility] [address] [place] [address] Kavita Viera, DO [address] [place] [address] Encounter for other general examination Social History Tobacco Use Types Packs/Day Years Used Date Smoking Tobacco: Never Assessed Sex and Gender Information Value Date Recorded Sex Assigned at Not on file Gender Identity Not on file Sexual Orientation Not on file documented as of this encounter Plan of Treatment Not on file documented as of this encounter Procedures Procedure Name Priority Date/Time Associated Diagnosis Comments SURGICAL PATHOLOGY Today 07/18/2021 14 :10 EST Encounter for other general examination documented in this encounter Results * SURGICAL PATHOLOGY (07/18/2021 14:10 EST) Note to Patient The following pathology results have been interpreted by your pathologist and may be available to you before your health provider has had the opportunity to review them. Please allow time for your provider to receive these results and explore management options, if applicable. 07/22/2021 10:39 EDT [facility] Final Diagnosis A. STOMACH, ANTRUM, BIOPSY: - Transitional mucosa with reactive (chemical) gastropathy. - Negative for Helicobacter pylori on H&E stained sections. B. ESOPHAGUS, MID-DISTAL, BIOPSY: - Fibrinopurulent exudate. - No intact epithelium identified. 07/22/2021 10:39 [facility] Attestation By the signature below, the attending physician certifies that they have 1) personally conducted a gross and/or microscopic examination of the described specimen(s), and/or personally interpreted the results of laboratory testing of the described specimen(s), and 2) personally rendered or confirmed the above diagnosis. 07/22/2021 10:39 [facility] at [address] Clinical History Intractable nausea, vomiting 07/22/2021 10:39 [facility] Gross Description A. Received in formalin labelled with proper patient identification (initials R, B) and gastric antrum Bx are two kirby tissues, 0.3 x 0.2 x 0.1 cm and 0.4 x 0.2 x 0.1 cm. Entirely submitted in A1. B. Received in formalin labelled with proper patient identification (initials R, B) and mid distal esophagus Bx is a firm dull brown tissue, 0.5 x 0.4 x 0.2 cm. Entirely submitted intact in B1. ROSLYN CACERES(ASCP) 07/21/2021 9:55 07/22/2021 10:39 [facility] Performing Lab [facility] 10:39 [facility] Scanned Images 07/22/2021 10:39 [facility] Tissue ENTIRE ESOPHAGUS / Unknown 07/18/2021 14:10 EST 07/18/2021 22:23 EST Tissue specimen (specimen) ESOPHAGEAL STRUCTURE / Unknown 07/18/2021 14:10 EST 07/18/2021 22:23 EST Kavita Viera DO PATHOLOGY ORDER BENI [facility] [address] [place] [address] documented in this encounter Visit Diagnoses Diagnosis Encounter for other general examination documented in this encounter Care Teams Provider Relations Rep Relationship Specialty Start Date End Date David Blue MD [address] [place] [address] PCP - General 07/15/09 documented as of this encounter
--- OUTSIDE RECORDS SUMMARY | 2023-12-03 15:01 | XMS_ITS | Encounter Summary ---
Author Organization [facility] Address [facility] [place] [address] Care Team Providers Care Sanding Machine Buffer Name Role Phone David Blue MD Primary Care Provider [phone] Reason for Visit * Reason Comments Gastroesophageal Reflux Encounter Details Date Type Department Care Team (Late st Contact Info) Description 03/20/2014 1:00 PM EST Office Visit [place] [address] Baljinder Maharaj MD [facility] [place] [address] GERD (gastroesophageal reflux disease); Farerll's esophagus Discharge Disposition: Home Social History Tobacco Use Types Packs/Day Years Used Date Smoking Tobacco: Every Day Sex and Gender Information Value Date Recorded Sex Assigned at Not on file Gender Identity Not on file Sexual Orientation Not on file documented as of this encounter Last Filed Vital Signs Vital Sign Reading Time Taken Comments Blood Pressure 130/66 03/20/2014 12:57 PM EST Pulse 63 03/20/2014 12:57 PM EST Temperature 36.8 ??C (98.2 ??F) 03/20/2014 12:[address] Respiratory Rate 16 03/20/2014 12:57 PM EST Oxygen Saturation 99% 03/20/2014 12:57 PM EST Inhaled Oxygen Concentration - - Weight 94 kg (207 lb 3.7 oz) 03/20/2014 12:57 PM EST Height - - Body Mass Index 40.47 03/15/2013 8:58 AM EST documented in this encounter Progress Notes * Baljinder Maharaj MD - 03/20/2014 5:36 PM EST COPY: David Dejesus M.D. Patient's Record Referring Physician: David Dejesus M.D. Ms. Irving is a 53-year-old woman who I was asked to see at the request of Dr. David Dejesus regarding her reflux disease. She has a long history of gastroesophageal reflux disease, which dates back to her youth. She apparently thought she had early investigations for this as early as the 60s. She has had progressive issues with ongoing reflux and has increased her medications over time. She is now on 80 mg of omeprazole daily (40 mg b.i.d.) as well as 300 mg of ranitidine and occasional Tums. She has apparently had an endoscopy by Dr. Cortes in the past, which revealed Farrell esophagus. I do not have any actual biopsy reports of this. She has not had any further investigations for this but her symptoms are pretty classic with ongoing issues of regurgitation both positional and especially at night. She has no dysphagia but does have globus associated symptoms. Her past history includes bipolar disorder, type 2 diabetes, degenerative joint issues. She has had c-sections. She has had pilonidal abscess, hysterectomy, and appendectomy. She smokes approximately one pack per day, rarely drinks alcohol. She is . 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 She has had a problem with maintaining any sort of significant weight loss and currently has a BMI around 40. Review of systems reveals chronic fatigue and snoring with often frequent waking up in the middle of the night feeling as if she is choking. She denies any chest pain or shortness of breath on exertion, no fevers, chills, or night sweats and no joint swelling, weakness, dizziness, or ataxia. Examination reveals an obese woman with a BMI of 40, otherwise in no distress. Impression: We talked about options for reflux control. We did go over the pathophysiology of reflux and also the need for surveillance for Farrell. We talked about Jocelyn fundoplication. I think her biggest gordon to overcome is a BMI of 40 is associated with an increased risk of failure. We did talk about the fact that she does have a number of obesity related comorbidities and I suspect she also has sleep apnea based on her review of systems. I think she may be better served by proceeding with gastric bypass and we went over some of the benefits of this including some of the risks. I think overall she feels that this may be a better path for her since it will address not only her reflux but some of her other comorbidities. She understands she needs to stop smoking for this and she also feels it would be important for her to change her lifestyle. She would like to look into this further with an information session and I have given her a pamphlet for this. She is currently scheduled for followup EGD with Dr. Dejesus as well as manometry and pH. I do not think she needs to do these latter tests if she is going to pursue bypass. I will speak to Dr. Dejesus about cancelling these and just proceeding with an EGD for Farrell surveillance. Total duration of this visit was 30 minutes, all spent in [id number] discussion with the patient and her and son. documented in this encounter Plan of Treatment Upcoming Encounters Date Type Department Care Team (Late st Contact Info) Description 12/07/2023 1:00 PM EDT Appointment [place] [address] 12/07/2023 2:00 PM EDT Office Visit [place] [address] Geronimo Mojica MD [facility] [place] [address] 12/27/2023 11:30 AM EDT Office [place] [address] Noe Cuenca MD [facility] [place] [address] Scheduled Procedures Name Priority Associated Diagnoses Date/Ti me EGD, UPPER GI ENDOSCOPY (WRV U 2.09) Peptic stricture of esophagus documented as of this encounter Visit Diagnoses Diagnosis GERD (gastroesophageal reflux disease) Esophageal reflux Farrell's esophagus documented in this encounter Care Teams Sanding Machine Buffer Relationship Specialty Start Date End Date David Blue MD [address] [place] [address] PCP - General 04/01/10 02/02/19 documented as of this encounter
--- OUTSIDE RECORDS SUMMARY | 2023-12-03 15:01 | XMS_ITS | Encounter Summary ---
Author Organization [facility] [place] [address] Care Team Providers Care International Logistics Manager Name Role Phone David Blue MD Primary Care Provider [phone] Encounter Details Date Type Department Care Team (Late st Contact Info) Description 01/15/2011 Ancillary Procedure [place] [phone] Ana Gillespie APRN [address] [place], [place] [id number] Social History Tobacco Use Types Packs/Day Years [...] 1:00 PM EDT Appointment [place] [phone] 12/07/2023 2:00 PM EDT Office [place] [address] Geronimo Mojica MD [facility] [place] [address] 12/27/2023 11:30 AM EDT Office [place] [phone] Noe Cuenca MD [facility] DR PULMONARY MEDICINE [place], [place] [id number] Scheduled Procedures Name Priority Associated Diagnoses Date/Ti me EGD, UPPER GI ENDOSCOPY (WRV U 2.09) Peptic stricture of esophagus documented as of this encounter Procedures Procedure Name Priority Date/Time Associated Diagnosis Comments FILM LIBRARY STORAGE ONLY MAMMO Routine 01/15/2011 12:00 AM EDT documented in this encounter Results * Film Library- Storage Only Mammo (01/15/2011 12:00 AM EDT) Narrative [facility] - 02/13/2019 8:41 AM EDT This exam is auto-finalizing. It's purpose is for storage only. Ana Gillespie APRN [facility] FILM LIBRARY ORD ERABLES [place], [place] documented in this encounter Visit Diagnoses Not on filedocumented in this encounter Care Teams International Logistics Manager Relationship Specialty Start Date End Date David Blue MD [address] [place] [address] PCP - General 04/01/10 02/02/19 documented as of this encounter
--- OUTSIDE RECORDS SUMMARY | 2023-12-03 15:01 | XMS_ITS | Encounter Summary ---
Author Organization [facility] Address [address] [place] [address] Care Team Providers Care Cash Accounting Clerk Name Role Phone David Blue MD Primary Care Provider [phone] Encounter Details Date Type Department Care Team (Late st Contact Info) Description 01/06/2023 Lab Requisition [facility] Pathology & Laboratory Medicine - [facility] [address] [place], [place] [address] Outr Resulting Lab, Provider Social History Tobacco [...] Procedure Name Priority Date/Time Associated Diagnosis Comments PTH INTACT Routine 01/05/2023 11:20 EDT documented in this encounter Results * PTH INTACT (01/05/2023 11:20 EDT) Intact PTH 31 19 - 88 pg/mL 01/06/2023 18:58 EDT [facility] Blood VENOUS BLOOD / Unknown 01/05/2023 11:20 EDT 01/06/2023 17:02 EDT Provider Outr Resulting Lab CHEMISTRY & BLOOD GAS ORDERABLES [facility] [address] [place] [address] documented in this encounter Visit Diagnoses Not on filedocumented in this encounter Care Teams Cash Accounting Clerk Relationship Specialty Start Date End Date David Blue MD [address] [place] [address] PCP - General 07/15/09 documented as of this encounter
--- OUTSIDE RECORDS SUMMARY | 2023-12-03 15:01 | XMS_ITS | Encounter Summary ---
Author Organization [facility] Address [facility] [place] [address] Care Team Providers Care Journal Box Inspector Name Role Phone Unavailable Primary Care Provider Unavailabl e Encounter Details Date Type Department Care Team (Late st Contact Info) Description 03/01/2009 Ancillary Procedure [place] [phone] Ana Gillespie APRN [address] [place], [place] [address] Social History Tobacco Use Types Packs/Day Years [...] 1:00 PM EDT Appointment [place] [address] 12/07/2023 2:00 PM EDT Office [place] [address] Geronimo Mojica MD [facility] DR THORACIC SURGERY [place], [place] [phone] 12/27/2023 11:30 AM EDT Office [place] [address] Noe Cuenca MD [facility] PULMONARY MEDICINE [place], [place] [phone] Scheduled Procedures Name Priority Associated Diagnoses Date/Ti me EGD, UPPER GI ENDOSCOPY (WRV U 2.09) Peptic stricture of esophagus documented as of this encounter Procedures Procedure Name Priority Date/Time Associated Diagnosis Comments FILM LIBRARY STORAGE ONLY MAMMO Routine 03/01/2009 12:00 AM EDT documented in this encounter Results * Film Library- Storage Only Mammo (03/01/2009 12:00 AM EDT) Narrative [facility] - 02/13/2019 8:43 AM EDT This exam is auto-finalizing. It's purpose is for storage only. Aan NAZARIO FILM LIBRARY ORD ERABLES [facility] [place], [place] documented in this encounter Visit Diagnoses Not on filedocumented in this encounter
--- OUTSIDE RECORDS SUMMARY | 2023-12-03 15:01 | XMS_ITS | Encounter Summary ---
Author Organization [facility] Address [address] [place] [address] Care Team Providers Care Calculating Machine Operator Name Role Phone David Blue MD Primary Care Provider [phone] Encounter Details Date Type Department Care Team (Late st Contact Info) Description 09/14/2007 Results Only [facility] [address] [place] [address] Kassidy Villafana FNP [address] [place], [place] [id number] Social History Tobacco Use Types Packs/Day Years Used Date Smoking Tobacco: Never Assessed Sex and Gender Information Value Date Recorded Sex Assigned at Not on file Gender Identity Not on file Sexual Orientation Not on file documented as of this encounter Plan of Treatment Not on file documented as of this encounter Procedures Procedure Name Priority Date/Time Associated Diagnosis Comments CYTOPATHOLOGY Routine 09/14/2007 0:00 EDT documented in this encounter Results * CYTOPATHOLOGY (09/14/2007 0:00 EDT) Pathology Report: CYTOPATHOLOGY REPORT Reports generated via electronic interface contain original data; however they are lacking the format of the original report. Caution should be taken when reading/interpreti ng unformatted reports. Name: ? JENNIFER IRVING ? Accession #: ? [id number] : ? 1960 (Age: 47) ??F ?Collect Date: ? 09/14/2007 Location: ? [facility] ? Receive Date: ? 09/16/2007 Provider: ?KASSIDY VILLAFANA RVDA MASTER CERTIFIED RV TECHNICIAN Copy to: ? Specimen/Source: ?ThinPrep Pap Test, Cervix/Endocervix, processed on [employer] ThinPrep Imaging System, with manual evaluation Last Menstrual Period: ? 12/09 Previous Gynecologic Pathology: ? Yes: secondary fibroids Treatment History: ? Hysterectomy: S/P partial Other: ? HPVA - HPV testing requested if ASC-US on the current ThinPrep Pap test. ? SPECIMEN ADEQUACY ? Satisfactory for Evaluation - transformation zone component present GENERAL CATEGORIZATION ? Negative for Intraepithelial Lesion or Malignancy ? Document reviewed and electronically signed by: ? ROCIO Fernando(ASCP) ? Report Date: ??09/19/2007 13:35 End of Report [facility] 09/14/2007 09/16/2007 Kassidy DUDLEYP PATHOLOGY ORDERABLES Performing Organization Address City/State/[facility] Co de Phone Number DULCE DAVIES [address] [place] [address] documented in this encounter Visit Diagnoses Not on filedocumented in this encounter Care Teams Calculating Machine Operator Relationship Specialty Start Date End Date David Blue MD [address] [place] [address] PCP - General 07/15/09 documented as of this encounter
--- OUTSIDE RECORDS SUMMARY | 2023-12-03 15:01 | XMS_ITS | Clinical Summary ---
Author Organization [facility] Address [address] [place] [address] Care Team Providers Care Furnace Installer Helper Name Role Phone David Blue MD Primary Care Provider [phone] Social History Tobacco Use Types Packs/Day Years Used Date Smoking Tobacco: Never Assessed Sex and Gender Information Value Date Recorded Sex Assigned at Not on file Gender Identity Not on file Sexual Orientation Not on file Plan of Treatment Health Maintenance Due Date Last Done Comments Hepatitis C Screen 1960 RSV Immunization ( o r 60+ Years) (1 - 1-dose 60+ series) 2020 COVID-19 Vaccine (2022-24 season) 2023 Care Teams Furnace Installer Helper Relationship Specialty Start Date End Date David Blue MD [address] [place] [address] PCP - General 07/15/09
--- OUTSIDE RECORDS SUMMARY | 2023-12-03 15:01 | XMS_ITS | Encounter Summary ---
Author Organization [facility] Address [address] [place] [address] Care Team Providers Care Before And After School Daycare Worker Name Role Phone David Blue MD Primary Care Provider [phone] Encounter Details Date Type Department Care Team (Late st Contact Info) Description 01/08/2006 Results Only [facility] - Maple conversion [address] [place] [address] Sergey Kraus, DO [address] [facility] [place] [address] Social History Tobacco Use Types [...] Date/Time Associated Diagnosis Comments SURGICAL PATHOLOGY Routine 01/08/2006 0:00 EDT documented in this encounter Results * SURGICAL PATHOLOGY (01/08/2006 0:00 EDT) Pathology Report: SURGICAL PATHOLOGY REPORT Reports generated via electronic interface contain original data; however they are lacking the format of the original report. Caution should be taken when reading/interpreti ng unformatted reports. Name: ? JENNIFER IRVING ? Accession #: ? [id number] ? : ? 1960 (Age: 45) ??F ? Collect Date: ? 01/08/2006 ? Location: ? [facility] ? Receive Date: ? 01/09/2006 ? Provider: SERGEY KRAUS DO Copy to: DAVID BLUE MD ? Final Pathologic Diagnosis: A. ?Stomach, antrum, biopsy: 1. ?Fundic mucosa with no specific pathologic features. 2. ?No Helicobacter-pylor i-like microorganisms identified on H&E-stained sections. B. ?Esophagus, distal, biopsy: 1. 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 2. ?No dysplasia identified. C. ?Esophagus, mid, biopsy: 1. ?Squamous mucosa with rare intraepithelial eosinophils consistent with reflux esophagitis. 2. ?No goblet cell intestinal metaplasia identified. Document reviewed and electronically signed by: MARIA DE JESUS MORENO MD Report ??Date: 01/13/2006 17:25 By the signature above, the attending physician certifies that he/she has personally conducted a gross and/or microscopic examination of the described specimens and rendered or confirmed the above diagnosis. Specimen(s) Received: A. ?Bx antrum B. ?Bx distal esophagus C. ?Bx mid esophagus Clinical History: ? Hx Farrell' s esophagitis Gross Description: ? Received in Holltiffanie's fixative labelled Aristides and bx antrum is a 0.5 x 0.3 x 0.1 cm portion of kirby-pink tissue submitted intact as (A). Received in Hollande's fixative labelled Irving and bx distal esophagus are six portions of kirby-pink ??tissue ranging from 0.1 x 0.1 by less than 0.1 cm to 0.3 x 0.2 x 0.1 cm submitted in toto as (B1) and (B2). Received in Hollande's fixative labelled Irving and bx mid esophagus are two portions of kirby-pink ??tissue averaging 0.5 x 0.2 x 0.1 cm submitted in toto as (C). (Tanja Aguilera)/mpl End of Report [facility] 01/08/2006 01/09/2006 10: 17 EDT Sergey Kraus DO PATHOLOGY ORDER BENI [facility] [address] [place] [address] documented in this encounter Visit Diagnoses Not on filedocumented in this encounter Care Teams Before And After School Daycare Worker Relationship Specialty Start Date End Date David Blue MD [address] [place] [address] PCP - General 07/15/09 documented as of this encounter
--- OUTSIDE RECORDS SUMMARY | 2023-12-03 15:01 | XMS_ITS | Encounter Summary ---
Author Organization [facility] Address [address] [place] [address] Care Team Providers Care Industrial Millwright Name Role Phone David Blue MD Primary Care Provider [phone] Encounter Details Date Type Department Care Team (Late st Contact Info) Description 03/06/2021 Lab Requisition [facility] Pathology & Laboratory Medicine - [facility] [address] [place], [place] [address] Outr Resulting Lab, Provider Social History Tobacco [...] Procedure Name Priority Date/Time Associated Diagnosis Comments CHRONIC HEPATITIS PROFILE, UNKNOWN TYPE Routine 03/06/2021 7:10 EDT documented in this encounter Results * CHRONIC HEPATITIS PROFILE, UNKNOWN TYPE (03/06/2021 7:10 EDT) Hep B Surface Ag Negative Negative 03/07/20 10:41 EDT [facility] Hep B Surface Ab, Quantitative <3.1 See Note mIU/mL 03/07/2021 10:41 [facility] Comment: Reference Range for Hep B Surface Ab, Quant: Positive: >= 10.0 mIU/mL Negative: ??< 10.0 mIU/mL Patient is presumed to not be immune to infection with Hepatitis B Virus. Hep B Surface Ab, Qualitative Negative See Note 03/07/2021 10:41 T [facility] Comment: Reference Range for Hep B Surface Ab, Qual: Unvaccinated: ??Negative Vaccinated: ??Positive Hepatitis B Core Ab, Total Negative Negative 03/07/2021 10:41 EDT [facility] Hep C Antibody Negative Negative 03/07/2021 10:41 EDT [facility] Blood VENOUS BLOOD / Unknown 03/06/2021 7:10 EDT 03/06/2021 16:38 EDT Provider Outr Resulting Lab CHEMISTRY & BLOOD GAS ORDERABLES [facility] [address] [place] [address] documented in this encounter Visit Diagnoses Not on filedocumented in this encounter Care Teams Industrial Millwright Relationship Specialty Start Date End Date David Blue MD [address] [place] [address] PCP - General 07/15/09 documented as of this encounter
--- OUTSIDE RECORDS SUMMARY | 2023-12-03 15:01 | XMS_ITS | Encounter Summary ---
Author Organization [facility] [place] [address] Care Team Providers Care Assisted Living Executive Director Name Role Phone David Blue MD Primary Care Provider [phone] Encounter Details Date Type Department Care Team (Late st Contact Info) Description 12/12/2012 Ancillary Procedure [place] [phone] Ana Gillespie APRN [address] [place], [place] [id number] Social History Tobacco Use Types Packs/Day Years Used Date Smoking Tobacco: Never Assessed Sex and Gender Information Value Date Recorded Sex Assigned at Not on file Gender Identity Not on file Sexual Orientation Not on file documented as of this encounter Plan of Treatment Upcoming Encounters Date Type Department Care Team (Late st Contact Info) Description 12/07/2023 1:00 PM EDT [place] [phone] 12/07/2023 2:00 PM EDT Office [place] [address] Geronimo Mojica MD [facility] [place] [address] 12/27/2023 11:30 AM EDT [place] [phone] Noe Cuenca MD [facility] DR PULMONARY MEDICINE [place], [place] [id number] Scheduled Procedures Name Priority Associated Diagnoses Date/Ti me EGD, UPPER GI ENDOSCOPY (WRV U 2.09) Peptic stricture of esophagus documented as of this encounter Procedures Procedure Name Priority Date/Time Associated Diagnosis Comments FILM LIBRARY STORAGE ONLY MAMMO Routine 12/12/2012 12:00 AM EDT documented in this encounter Results * Film Library- Storage Only Mammo (12/12/2012 12:00 AM EDT) Narrative [facility] - 02/13/2019 8:42 AM EDT This exam is auto-finalizing. It's purpose is for storage only. Ana Gillespie APRN [facility] FILM LIBRARY ORD ERABLES [place], [place] documented in this encounter Visit Diagnoses Not on filedocumented in this encounter Care Teams Assisted Living Executive Director Relationship Specialty Start Date End Date David Blue MD [address] [place] [address] PCP - General 04/01/10 02/02/19 documented as of this encounter
--- OUTSIDE RECORDS SUMMARY | 2023-12-03 15:01 | XMS_ITS | Encounter Summary ---
Author Organization [facility] Address [address] [place] [address] Care Team Providers Care Insurance Defense Paralegal Name Role Phone David Blue MD Primary Care Provider [phone] Encounter Details Date Type Department Care Team (Late st Contact Info) Description 07/03/2023 Lab Requisition [facility] Pathology & Laboratory Medicine - [facility] [address], [place] [address] Outr Resulting Lab, Provider Social History Tobacco [...] Diagnosis Comments LEGIONELLA ANTIGEN DETECTION, URINE Routine 07/02/2023 18:28 EST documented in this encounter Results * LEGIONELLA ANTIGEN DETECTION, URINE (07/02/2023 18:28 EST) Legionella Antigen Detection Negative Negative 07/03/2023 21:[address] [facility] Urine URINE / Unknown 07/02/2023 1 8:28 EST 07/03/2023 21:19 EST Provider Outr Resulting Lab MICROBIOLOGY - GENERAL ORDERABLES [facility] [address] [place] [address] documented in this encounter Visit Diagnoses Not on filedocumented in this encounter Care Teams Insurance Defense Paralegal Relationship Specialty Start Date End Date David Blue MD [address] [place] [address] PCP - General 07/15/09 documented as of this encounter
--- OUTSIDE RECORDS SUMMARY | 2023-12-03 15:01 | XMS_ITS | Encounter Summary ---
Author Organization [facility] Address [facility] [place] [address] Care Team Providers Care Ophthalmic Pathologist Name Role Phone David Blue MD Primary Care Provider [phone] Reason for Visit * Reason Comments GI Problem Encounter Details Date Type Department Care Team (Late st Contact Info) Description 03/15/2013 9:00 AM EST Office [place] [address] Noe Genao MD [facility] [place] [address] GERD (gastroesophageal reflux disease) (Primary Dx); Covington's esophagus Discharge Disposition: Home Social History Tobacco Use Types Packs/Day Years Used Date Smoking Tobacco: Every Day Sex and Gender Information Value Date Recorded Sex Assigned at Not on file Gender Identity Not on file Sexual Orientation Not on file documented as of this encounter Last Filed Vital Signs Vital Sign Reading Time Taken Comments Blood Pressure 168/79 03/15/2013 8:58 AM EST Pulse 84 03/15/2013 8:58 AM EST Temperature - - Respiratory Rate - - Oxygen Saturation - - Inhaled Oxygen Concentration - - Weight 87.1 kg (192 lb) 03/15/2013 8:58 AM EST Height 152.4 cm (5') 03/15/2013 8:58 AM EST Body Mass Index 37.5 03/15/2013 8:58 AM EST documented in this encounter Progress Notes * Noe Genao MD - 03/15/2013 9:26 AM EST HISTORY: Jennifer Irving presents for consultation and further evaluation of GERD and Covington's Esophagus. Longstanding reflux disease. This went to youth. Had testings in s with possible barium swallow and did not find anything. Was on OTC acid suppressors for a while. Saw Dr. Cortes and had upper endoscopy and found Covington's. Has had some subsequent egds. We do not have the records of these. Rare sensation of solids slow passage and occasional sticking with regurgitation. This is better when she is on acid suppression. Sleeps on extra pillows. Has occasional heartburn breakthrough. Weight and appetite have been normal or her. Has had colonoscopy with benign polyps. Father had alcohol related liver disease. 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 Occasional alcohol. Works on weight. There is no problem list on file for this patient. PHYSICAL EXAM: Filed Vitals: 03/15/13 0858 BP: 168/79 Pulse: 84 NAD No adenopathy and thyromegaly Chest clear Heart normal exam Abdomen - nl BS, no organomegaly, nontender IMPRESSION: GERD and Covington's by history. We need to see length of Covington's and degree of dysplasia if any. She is interested to have her Covington's management here at [facility]. We reviewed the issues of timing of surveillance based on degree of dyplasia, as it might exist. The outside upper endoscopyreports and pathology have been requested. Her symptoms appear well controlled on the daily PPI andthis can be continued. We reviewed the safety data on long-term use of PPIs. The type of colon polyps seen at last colo will determine follow-up interval. She does want to work on weight issues and smoking cessation, but feels overly stressed at present to be successful. 45 of 60 direct [id number] minutes spent in counseling, and the rest in history gathering and performing exam,as well as planning management. PLAN: Review pathology reports If adenoma on colo, would do colo in 5 years, but if hyperplastic polyps, would do colo in 10 years. On upper exam follow-up, if non-dysplastic covington's on biopsy, would repeat biopsies at 3 years from last session. If dysplasia present, would re-biopsy, restage and consider for ablation. Continue PPIs. Noe Genao MD Section of Gastroenterology and Hepatology documented in this encounter Plan of Treatment Upcoming Encounters Date Type Department Care Team (Late st Contact Info) Description 12/07/2023 1:00 PM EDT Appointment [place] [address] 12/07/2023 2:00 PM EDT Office [place] [phone] Geronimo Mojica MD [facility] [place] [address] 12/27/2023 11:30 AM EDT Office [place] [phone] Noe Cuenca MD [facility] [place] [address] Scheduled Procedures Name Priority Associated Diagnoses Date/Ti me EGD, UPPER GI ENDOSCOPY (WRV U 2.09) Peptic stricture of esophagus documented as of this encounter Visit Diagnoses Diagnosis GERD (gastroesophageal reflux disease)- Primary Esophageal reflux Covington's esophagus documented in this encounter Care Teams Ophthalmic Pathologist Relationship Specialty Start Date End Date David Blue MD [address] [place] [address] PCP - General 04/01/10 02/02/19 documented as of this encounter
--- OUTSIDE RECORDS SUMMARY | 2023-12-03 15:01 | XMS_ITS | Encounter Summary ---
Author Organization [facility] Address [address] [place] [address] Care Team Providers Care Phlebotomy Manager Name Role Phone David Blue MD Primary Care Provider [phone] Encounter Details Date Type Department Care Team (Late st Contact Info) Description 06/10/2021 Lab Requisition [facility] Pathology & Laboratory Medicine - [facility] [address] [place] [address] Merly Purcell, DO [address] [place] [address] Encounter for other general examination Social History [...] Date/Time Associated Diagnosis Comments SURGICAL PATHOLOGY Today 06/10/2021 9: 41 EST Encounter for other general examination documented in this encounter Results * SURGICAL PATHOLOGY (06/10/2021 9:41 EST) Note to Patient The following pathology results have been interpreted by your pathologist and may be available to you before your health provider has had the opportunity to review them. Please allow time for your provider to receive these results and explore management options, if applicable. 06/11/2021 13:01 EST [facility] Final Diagnosis A. JEJUNUM, PROXIMAL, BIOPSY: - Duodenal mucosa with no significant diagnostic abnormalities. B. DUODENUM, BULB, BIOPSY: - Duodenal mucosa with no significant diagnostic abnormalities. C. STOMACH, ANTRUM, BIOPSY: - Antral mucosa with reactive (chemical) gastropathy. - Negative for Helicobacter pylori on H&E stained sections. D. STOMACH, GREATER CURVATURE, BIOPSY: - Gastric fundic mucosa with no significant diagnostic abnormalities. - Negative for Helicobacter pylori on H&E stained sections. E. ESOPHAGUS, 35 CMS, BIOPSY: - Gastric fundic mucosa with no significant diagnostic abnormalities. - Negative for intestinal metaplasia and dysplasia. F. ESOPHAGUS, 34 CMS, BIOPSY: - Squamocolumnar mucosa with mild reactive changes. - Negative for intestinal metaplasia and dysplasia. G. ESOPHAGUS, 33 CMS, BIOPSY: - Consistent with Farrell's esophagus with ulceration. - Mild epithelial inflammatory atypia; negative for dysplasia. H. ESOPHAGUS, 32 CMS, BIOPSY: - Consistent with Farrell's esophagus with ulceration. - Negative for dysplasia. I. ESOPHAGUS, 25 CMS, BIOPSY: - Fragments of ulceration and granulation tissue. - No intact epithelium identified. J. ESOPHAGUS, 23 CMS, BIOPSY: - Fragments of ulceration and granulation tissue. - No intact epithelium identified. K. ESOPHAGUS, 20 CMS, BIOPSY: - Fragments of ulceration and granulation tissue. - No intact epithelium identified. L. COLON, 70 CMS, POLYP, BIOPSY: - Tubular adenoma. M. COLON, 20 CMS, POLYP, BIOPSY: - Hyperplastic polyp. N. RECTUM, POLYP, BIOPSY: - Consistent with Hyperplastic polyp. 06/11/2021 13:01 [facility] Attestation By the signature below, the attending physician certifies that they have 1) personally conducted a gross and/or microscopic examination of the described specimen(s), and/or personally interpreted the results of laboratory testing of the described specimen(s), and 2) personally rendered or confirmed the above diagnosis. 06/11/2021 13:01 [facility] at 1301 Clinical History Anemia, abdominal pain 06/11/2021 13:01 [facility] Gross Description A. Received in formalin labelled with proper patient identification (initials R, B) and proximal jejunum is a 0.4 x 0.3 x 0.2 cm kirby-pink tissue. Submitted intact in A1. B. Received in formalin labelled with proper patient identification (initials R, B) and duodenal bulb is a kirby-pink tissue measuring 0.2 x 0.2 x 0.1 cm. Submitted intact in B1. C. Received in formalin labelled with proper patient identification (initials R, B) and antrum is a kirby-pink tissue measuring 0.5 x 0.2 x 0.2 cm. Submitted intact in C1. D. Received in formalin labelled with proper patient identification (initials R, B) and greater curve is a kirby-pink tissue measuring 0.5 x 0.2 x 0.1 cm. Submitted intact in D1. E. Received in formalin labelled with proper patient identification (initials R, B) and GE junction 35 cm are 3 kirby-pink tissues ranging in size from 0.3 x 0.2 x 0.1 cm up to 0.5 x 0.2 x 0.1 cm. Submitted intact in E1. F. Received in formalin labelled with proper patient identification (initials R, B) and GE junction 34 cm are 2 kirby-pink tissues measuring 0.3 x 0.3 x 0.2 cm and 0.3 x 0.2 x 0.1 cm. Submitted intact in F1. G. Received in formalin labelled with proper patient identification (initials R, B) and GE junction 33 cm are 3 pink-white tissues ranging in size from 0.4 x 0.2 x 0.1 cm up to 0.6 x 0.1 x 0.1 cm. Submitted intact in G1. H. Received in formalin labelled with proper patient identification (initials R, B) and GE junction 32 cm are 2 light kirby tissues measuring 0.2 x 0.2 x 0.1 cm and 0.2 x 0.2 x 0.2 cm. Submitted intact in H1. I. Received in formalin labelled with proper patient identification (initials R, B) and GE junction 25 cm are 5 pink-white tissues ranging in size from 0.2 x 0.1 x 0.1 cm up to 0.3 x 0.2 x 0.1 cm. Submitted intact in I1. J. Received in formalin labelled with proper patient identification (initials R, B) and GE junction 23 cm are two kirby-white tissues measuring 0.2 x 0.1 x 0.1 cm and 0.2 x 0.2 x 0.1 cm. Submitted intact in J1. K. Received in formalin labelled with proper patient identification (initials R, B) and GE junction 20 cm are 2 light kirby tissues measuring 0.2 x 0.2 x 0.1 cm and 0.4 x 0.1 x 0.1 cm. Submitted intact in K1. L. Received in formalin labelled with proper patient identification (initials R, B) and polyp at 70 cm trap # 1 are 5 light kirby tissues ranging in size from 0.2 x 0.1 x 0.1 cm up to 0.3 x 0.2 x 0.2 cm. Submitted intact in L1. M. Received in formalin labelled with proper patient identification (initials R, B) and polyp at 20 cm are 4 kirby white tissues measuring from 0.2 x 0.1 x 0.1 cm up to 0.3 x 0.3 x 0.1 cm. Submitted intact in M1. N. Received in formalin labelled with proper patient identification (initials R, B) and rectal polyp is a 0.3 x 0.2 x 0.1 cm kirby-pink tissue. Submitted intact in N1. ROSLYN EARLY(ASCP) 06/10/2021 19:05 06/11/2021 13:01 [facility] Performing Lab [facility] 06/11/2021 13:01 [facility] Scanned Images 06/11/2021 13:01 [facility] Tissue SPECIMEN FROM RECTUM / Unknown 06/10/2021 9:41 EST 06/10/2021 16:32 EST Tissue specimen (specimen) STRUCTURE OF SMALL INTESTINE / Unknown 06/10/2021 9:41 EST 06/10/2021 16:32 EST Tissue specimen (specimen) STOMACH STRUCTURE / Unknown 06/10/2021 9:41 EST 06/10/2021 16:32 EST Tissue specimen (specimen) STOMACH STRUCTURE / Unknown 06/10/2021 9:41 EST 06/10/2021 16:32 EST Tissue specimen (specimen) ESOPHAGEAL STRUCTURE / Unknown 06/10/2021 9:41 EST 06/10/2021 16:32 EST Tissue specimen (specimen) ESOPHAGEAL STRUCTURE / Unknown 06/10/2021 9:41 EST 06/10/2021 16:32 EST Tissue specimen (specimen) ESOPHAGEAL STRUCTURE / Unknown 06/10/2021 9:41 EST 06/10/2021 16:32 EST Tissue specimen (specimen) ESOPHAGEAL STRUCTURE / Unknown 06/10/2021 9:41 EST 06/10/2021 16:32 EST Tissue specimen (specimen) ESOPHAGEAL STRUCTURE / Unknown 06/10/2021 9:41 EST 06/10/2021 16:32 EST Tissue specimen (specimen) ESOPHAGEAL STRUCTURE / Unknown 06/10/2021 9:41 EST 06/10/2021 16:32 EST Tissue specimen (specimen) ESOPHAGEAL STRUCTURE / Unknown 06/10/2021 9:41 EST 06/10/2021 16:32 EST Tissue specimen (specimen) COLON STRUCTURE / Unknown 06/10/2021 9:41 EST 06/10/2021 16:32 EST Tissue specimen (specimen) COLON STRUCTURE / Unknown 06/10/2021 9:41 EST 06/10/2021 16:32 EST Tissue specimen (specimen) SPECIMEN FROM RECTUM / Unknown 06/10/2021 9:41 EST 06/10/2021 16:32 EST Merly Purcell DO PATHOLOGY ORDERABLES Performing Organization Address City/State/[facility] Co de Phone Number [facility] [address] [place] [address] documented in this encounter Visit Diagnoses Diagnosis Encounter for other general examination documented in this encounter Care Teams Phlebotomy Manager Relationship Specialty Start Date End Date David Blue MD [address] [place] [address] PCP - General 07/15/09 documented as of this encounter
--- OUTSIDE RECORDS SUMMARY | 2023-12-03 15:01 | XMS_ITS | Encounter Summary ---
Author Organization [facility] Address [address] [place] [address] Care Team Providers Care Paddock Judge Name Role Phone David Blue MD Primary Care Provider [phone] Encounter Details Date Type Department Care Team (Late st Contact Info) Description 11/28/2010 Results Only [facility] Laboratory Services - [facility] ([facility] [address] [place], [place] [id number] Sergey Kraus, DO [address] [place], [place] [id number] Social History Tobacco Use Types Packs/Day Years Used Date Smoking Tobacco: Never Assessed Sex and Gender Information Value Date Recorded Sex Assigned at Not on file Gender Identity Not on file Sexual Orientation Not on file documented as of this encounter Plan of Treatment Not on file documented as of this encounter Procedures Procedure Name Priority Date/Time Associated Diagnosis Comments SURGICAL PATHOLOGY Routine 11/28/2010 0:00 EDT documented in this encounter Results * SURGICAL PATHOLOGY (11/28/2010 0:00 EDT) Pathology Report: SURGICAL PATHOLOGY REPORT ? Reports generated via electronic interface contain original data; ? however they are lacking the format of the original report. ? Caution should be taken when reading/interpreting unformatted reports. ? Name: ? IRVING, JENNIFER ? Accession #: ? [id number] ? : ? 1960 (Age: 50) ??F ? Collect Date: ? 11/28/2010 ? Location: ? [facility] ? Receive Date: ? 11/28/2010 ? Provider: SERGEY KRAUS DO ? Copy to: DAVID BLUE MD ? Final Pathologic Diagnosis: ? Colon, 20 cm, polyp, biopsy: ? - Hyperplastic polyp. ??See comment. ? Comment: ? Deeper levels have been examined. [employer] sections of this case have been reviewed at intradepartmental consultation conference. (Dr. Patten)/mpl ? Document reviewed and electronically signed by: ? LINDSAY L HOBSON MD ? Report ??Date: 12/03/2010 15:50 ? By the signature above, the attending physician certifies that he/she has ? personally conducted a gross and/or microscopic examination of the described ? specimens and rendered or confirmed the above diagnosis. ? Specimen(s) Received: ? Colon polyp 20 cm ? Clinical History: ? Colorectal screen ? Gross Description: ? Received in formalin labelled Jennifer Irving and colon polyp 20 cm is a single, kirby-brown, focally white, polypoid tissue fragment which measures ?? 0.9 x 0.5 x 0.4 cm. ??Prior to sectioning, the resection margin is black inked. ?? The specimen is bisected and entirely submitted in a single cassette. ( ? Josee/[facility] ? End of Report ? DULCE DAVIES 11/28/2010 11/28/2010 18: 52 EDT Sergey Kraus DO PATHOLOGY ORDER BENI DULCE PARIKH [facility] [address] [place] [address] documented in this encounter Visit Diagnoses Not on filedocumented in this encounter Care Teams Paddock Judge Relationship Specialty Start Date End Date David Blue MD [address] [place] [address] PCP - General 07/15/09 documented as of this encounter
--- OUTSIDE RECORDS SUMMARY | 2023-12-03 15:01 | XMS_ITS | Encounter Summary ---
Author Organization [facility] Address [address] [place] [address] Care Team Providers Care Meter Calibrator Name Role Phone David Blue MD Primary Care Provider [phone] Encounter Details Date Type Department Care Team (Late st Contact Info) Description 05/08/2003 Results Only [facility] [address] [place] [address] Rock Samson MD [address] [place], [place] [address] Social History Tobacco Use Types Packs/Day Years Used Date Smoking Tobacco: Never Assessed Sex and Gender Information Value Date Recorded Sex Assigned at Not on file Gender Identity Not on file Sexual Orientation Not on file documented as of this encounter Plan of Treatment Not on file documented as of this encounter Procedures Procedure Name Priority Date/Time Associated Diagnosis Comments CYTOPATHOLOGY Routine 05/08/2003 0:00 EST documented in this encounter Results * CYTOPATHOLOGY (05/08/2003 0:00 EST) Pathology Report: CYTOPATHOLOGY REPORT Reports generated via electronic interface contain original data; however they are lacking the format of the original report. Caution should be taken when reading/interpreti ng unformatted reports. Name: ? JENNIFER IRVING ? Accession #: ? [id number] : ? 1960 (Age: 42) ??F ?Collect Date: ? 05/08/2003 Location: ? [facility] ? Receive Date: ? 05/11/2003 Provider: ?ROCK SAMSON MD Copy to: ? Specimen/Source: ?ThinPrep Pap Test, Cervix/Endocervix Last Menstrual Period: ? 04/18/03 Other: ? HPVA - HPV testing requested if ASC-US on the current ThinPrep Pap test. ? SPECIMEN ADEQUACY ? Satisfactory for Evaluation - transformation zone component present GENERAL CATEGORIZATION ? Negative for Intraepithelial Lesion or Malignancy ? Document reviewed and electronically signed by: ? ROCIO Michaels(ASCP) ? Report Date: ??05/15/2003 15:39 End of Report DULCE DAVIES 05/08/2003 05/11/2003 Rock Samson MD PATHOLOGY ORDERABLES Performing Organization Address City/State/[facility] Co de Phone Number DULCE DAVIES [address] [place] [address] documented in this encounter Visit Diagnoses Not on filedocumented in this encounter Care Teams Meter Calibrator Relationship Specialty Start Date End Date David Blue MD [address] [place] [address] PCP - General 07/15/09 documented as of this encounter
--- OUTSIDE RECORDS SUMMARY | 2023-12-03 15:01 | XMS_ITS | Encounter Summary ---
Author Organization [facility] Address [address] [place] [address] Care Team Providers Care Nike Athlete Name Role Phone David Blue MD Primary Care Provider [phone] Encounter Details Date Type Department Care Team (Late st Contact Info) Description 12/23/2000 Results Only [facility] [address] [place] [address] Rock Samson MD [address] [place], [place] [address] Social History Tobacco Use Types Packs/Day Years Used Date Smoking Tobacco: Never Assessed Sex and Gender Information Value Date Recorded Sex Assigned at Not on file Gender Identity Not on file Sexual Orientation Not on file documented as of this encounter Plan of Treatment Not on file documented as of this encounter Procedures Procedure Name Priority Date/Time Associated Diagnosis Comments CYTOPATHOLOGY Routine 12/23/2000 0:00 EDT documented in this encounter Results * CYTOPATHOLOGY (12/23/2000 0:00 EDT) Pathology Report: CYTOPATHOLOGY REPORT Reports generated via electronic interface contain original data; however they are lacking the format of the original report. Caution should be taken when reading/interpreti ng unformatted reports. Name: ? JENNIFER IRVING ? Accession #: ? [id number] : ? 1960 (Age: 40) ??F ?Collect Date: ? 12/23/2000 Location: ? [facility] ? Receive Date: ? 12/24/2000 Provider: ?ROCK SAMSON MD Copy to: ? Specimen/Source: ?ThinPrep Pap Test, Cervix/Endocervix Last Menstrual Period: ? 12/02/00 ? SPECIMEN ADEQUACY ? Satisfactory for evaluation. GENERAL CATEGORIZATION ? Within Normal Limits ? Document reviewed and electronically signed by: ? ROCIO Puckett(ASCP) ? Report Date: ??12/29/2000 08:42 End of Report [facility] 12/23/2000 12/24/2000 Rock Samson MD PATHOLOGY ORDERABLES Performing Organization Address City/State/[facility] Co de Phone Number [facility] [address] [place] [address] documented in this encounter Visit Diagnoses Not on filedocumented in this encounter Care Teams Nike Athlete Relationship Specialty Start Date End Date David Blue MD [address] [place] [address] PCP - General 07/15/09 documented as of this encounter
--- OUTSIDE RECORDS SUMMARY | 2023-12-03 15:01 | XMS_ITS | Encounter Summary ---
Author Organization [facility] Address [facility] [place] [address] Care Team Providers Care Emergency Dispatcher Name Role Phone Ana Gillespie APRN Primary Care Provider [phone] Encounter Details Date Type Department Care Team (Late st Contact Info) Description 09/06/2009 Orders Only Gynecology Oncology at [place] [phone] Kathy Romero MD [facility] [place] [address] Social History Tobacco Use Types Packs/Day Years Used Date Smoking Tobacco: Never Assessed Sex and Gender Information Value Date Recorded Sex Assigned at Not on file Gender Identity Not on file Sexual Orientation Not on file documented as of this encounter Plan of Treatment Upcoming Encounters Date Type Department Care Team (Late st Contact Info) Description 12/07/2023 1:00 PM EDT Appointment Pulmonology at [place] [phone] 12/07/2023 2:00 PM EDT Office Visit Thoracic Surgery at [place] [phone] Geronimo Mojica MD [facility] [place] [address] 12/27/2023 11:30 AM EDT Office [place] [address] Noe Cuenca MD [facility] [place] [address] [phone] (work) Scheduled Procedures Name Priority Associated Diagnoses Date/Ti me EGD, UPPER GI ENDOSCOPY (WRV U 2.09) Peptic stricture of esophagus documented as of this encounter Procedures Procedure Name Priority Date/Time Associated Diagnosis Comments SURGICAL PATHOLOGY REPORT Routine 09/06/2009 2:34 PM EDT documented in this encounter Results * Surgical Pathology Report (09/06/2009 2:34 PM EDT) Surgical Pathology Report [id number] ? Location: [facility] The signing pathologist has (i) examined the relevant preparation(s) for the specimen(s) and (ii) rendered or confirmed the diagnosis(es). . ?Pathology Surgical Pathology Final Report Clinical Information Specimen Submitted: A - Lt pelvic mass ? cancer for frozen section Clinical History: Not provided Clinical Diagnosis: Pelvic mass Gross Description Labeled/Fixative: ? 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 Qty/Size/Weight: ?One, 6.0 x 5.0 x 2.2 cm. Tissue Description: ?? Bosselated portion of pink-kirby and kirby-white tissue. ?The external surface displays areas of fibroconnective, fibromembranous, and fibrofatty tissues. ??Sectioning reveals a 2.8-vq-kp-greates t- dimension, clear fluid-filled, smooth-lined cyst with surrounding rubbery, estrada-white tissue. Sections/Processi ng: ??A outside medical sales representative section is submitted for frozen ?section. ??The frozen section residue is submitted in ?(A1). ??Additional outside medical sales representative sections are ?submitted. (R4) ??aje/EJR Microscopic Description Slides reviewed, microscopic description not recorded. Diagnosis Left pelvic mass, excision for frozen section: ?? 1 - Benign cystic lesion (see Comment). ?? 2 - Adjacent benign ovarian parenchyma. CR-0 09/10/09 ARS 09/10/09 Verified by: ? Rohan MARTE, Viktor Segura ?Pathologist ?(Electronic Signature) The attending pathologist whose signature appears on this report has reviewed all diagnostic slides and has edited the gross and/or microscopic portion of the report in rendering the final pathologic diagnosis. Comment Multiple sections of the cyst show an extremely attenuated, delicate lining, without ciliation or mucinous change. ??If this lesion is of ovarian surface origin, it could represent a benign serous cystadenoma. ??A benign mesothelial cyst is not excluded. There is no evidence of malignancy. ? 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 Frozen Section Report ?09/06/09 14:51 09/06/09 ??Verified by: ??Rohan MARTE, Vitkor Segura, Pathologist The attending pathologist whose electronic signature appears on this report has reviewed all diagnostic slides in rendering the frozen section diagnosis. This intraoperative consultation should be interpreted as a preliminary diagnosis pending review of the entire specimen and special studies, if any. DARCY BRANETT 09/06/2009 2:34 PM EDT Kathy Romero MD PATHOLOGY/CYTOLOGY O [...] documented as of this encounter Care Teams Emergency Dispatcher Relationship Specialty Start Date End Date Ana Gillespie APRN [address] [place] [address] PCP - General Family Medicine 02/03/19 documented as of this encounter
== END 2023-12-03 14:51 | disposition home or self-care (01) ==
LOC: NCHCN 14:50
PROVIDERS: PCP Nurse Practitioner Family; Visit Provider Nurse Practitioner Family
DX: L29.3 Anogenital pruritus, unspecified (principal)
CPT/HCPCS: 87480; 87510; 87660

== ENCOUNTER 2024-01-24 15:40 | Outpatient (CLI) | payer MEDICAID, SELFPAY ==
--- NOTE | 2024-01-24 10:45 | DI.RAD_ITS ---
Exam(s) XR HIP LT AP LAT ONLY EXAM: XR HIP LT AP LAT ONLY CLINICAL HISTORY: ANNUAL F/U L KYUNG. TECHNIQUE: 2D digital imaging was performed. COMPARISON: CR XR HIP LT COMPLETE AP PELVIS from 02/15/2023 FINDINGS: Two views Stable position alignment of the components of the prosthesis. No fracture or loosening evident. IMPRESSION: Stable satisfactory appearance DATA REPOSITORY: RADIATION DOSE DELIVERED:
== END 2024-01-24 15:41 | disposition home or self-care (01) ==
LOC: DIORS 15:40
PROVIDERS: PCP Nurse Practitioner Family; Visit Provider Student in an Organized Health Care Education/Training Program
DX: Z96.642 Presence of left artificial hip joint (principal); Z47.1 Aftercare following joint replacement surgery
CPT/HCPCS: 73502

== ENCOUNTER 2024-02-05 11:42 | Emergency (ER) | payer MEDICAID, SELFPAY ==
[2024-02-05 11:43] VITALS: BP 113/77; PULSE 70; RESP 18; TEMP 36.2; O2SAT 95
--- NOTE | 2024-02-05 12:07 | W.ED.GENAD ---
Discharge Plan Disposition Patient Disposition: Home Discharge Details Clinical Impression: Dislodged gastrostomy tube Primary Care Provider: Ana Gillespie ED Provider: Shea He Home Meds and New Rx's Prescriptions: No Action bupropion HCl 100 mg tablet 300 mg PO DAILY Patient Comments: via g-tube, per pcp ov notes 12/09/22 RH protein Powder See Rx Instructions PO .COMPLEX Rx Instructions: 2 scoops daily duloxetine [Cymbalta] 20 mg capsule,delayed release(DR/EC) 20 mg PO DAILY duloxetine [Cymbalta] 60 mg capsule,delayed release(DR/EC) 60 mg PO DAILY Entresto 24-26 mg tablet 1 tab feeding tube BID Patient Comments: via g-tube Jardiance 10 mg tablet 10 mg PO DAILY quetiapine 100 mg tablet 100 mg PO QHS atorvastatin 80 mg tablet 80 mg PO DAILY valproic acid (as sodium salt) 250 mg/5 mL solution 300 mg PO TID Rx Instructions: 6mls TID metoprolol succinate 50 mg tablet extended release 24 hr 25 mg PO BID sucralfate 1 gram tablet 1 g PO QID Patient Comments: TAKE ONE TABLET BY MOUTH FOUR TIMES A DAY folic acid 1 mg Tablet 1 mg PO DAILY Qty: 0 0RF ferrous sulfate 300 mg (60 mg iron)/5 mL liquid 300 mg feeding tube .QOD Patient Comments: TAKE 5ML VIA G-TUBE EVERY OTHER DAY Humulin N NPH Insulin KwikPen 100 unit/mL (3 mL) insulin pen See Rx Instructions .ROUTE .COMPLEX Qty: 0 0RF Rx Instructions: 20 units at 11 am followed by sliding scale at 3 pm (5 units for blood sugar of 250 plus 1 additional unit for any 20 points that the blood sugar is above 250) ibuprofen 100 mg/5 mL suspension 600 mg PO Q8H PRN guaifenesin 200 mg/5 mL liquid 200 mg feeding tube Q4H PRNQty: 118 0RF aspirin 81 mg tablet,chewable 81 mg feeding tube DAILY Qty: 30 0RF acetaminophen 500 mg/15 mL liquid 1,000 mg PO Q8H PRNQty: 237 2RF nystatin 100,000 unit/gram powder 1 applic TOPICAL TID PRN Patient Comments: APPLY TO BUTTOCKS THREE TIMES A DAY NEEDED pantoprazole [address] for susp in packet 40 mg G-tube DAILY Patient Comments: Take 1 packet via g-tube twice a day Administer in 10 mL of apple juice via g-tub, then follow with another 10 mL. nystatin 100,000 unit/gram cream 1 applic TOPICAL TID PRN Patient Comments: APPLY A SMALL AMOUNT TO AFFECTED AREA(S) ON BUTTOCKS THREE TIMES A DAY NEEDED melatonin 3 mg tablet 9 mg feeding tube HS Patient Comments: TAKE THREE TABLETS VIA G-TUBE EVERY NIGHT DIRECTED insulin glargine [Lantus Solostar U-100 Insulin] 100 unit/mL (3 mL) insulin pen 10 unit SUBCUT QPM Patient Comments: INJECT 10 UNITS UNDER THE SKIN NIGHTLY DIRECTED ondansetron HCl 4 mg tablet 8 mg feeding tube Q8H PRN Patient Comments: TAKE ONE TABLET VIA G-TUBE EVERY 8 HOURS NEEDED Discharge Instructions Additional Instructions: Please call [facility] to discuss having your G-tube replaced as discussed. Continue with tube feedings and cleaning the gtube site as scheduled. Return to emergency care if you have any new problems with your G-tube, notice any signs of infection around the stoma, or if you are very worried and need to be rechecked again immediately. Discharge Data Discharge Date/Time-TO BE ENTERED AT DEPARTURE: 02/05/24 12:18 HPI General Date/Time Provider Initiated Documentation: 02/05/24 12:04. HPI Narrative: Jennifer is a 63 year old female who presents to the emergency dept for evaluation of dislodged G tube. reports he was doing the daily cleaning when it slipped out- he noticed that the balloon was mostly deflated. He brought the G-tube with him. He did note some mild bleeding around the stoma, says that this is usual for the G-tube. Jennifer reports she has recently been feeling good, denies abdominal pain, fever/chills, difficulty with tube feedings. She last had her G-tube replaced approximately 3 months ago, was planning on getting it changed again because one of the ports broke so they have duct tape currently covering it. She does have tube feeds twice a day. Physical exam reassuring. Patient is alert and oriented, in no acute distress. Stoma appears intact, healthy. Scant pinkish discharge noted when wiping around stoma with gauze. Abdomen is soft, nondistended, nontender to palpation. G-tube was cleansed with sterile water and was able to be reinserted after balloon was determined to be intact. Balloon was filled with 10 cc normal saline. Patient tolerated procedure well. Dressing was reapplied. Reviewed discharge instructions with patient and her , including importance of follow-up with IR to have G-tube replaced as discussed and indications for return to emergency care. They voice agreement with plan of care. Related Data Home Medications ?Medication ?Instructions ?Recorded ?Confirmed sucralfate 1 gram tablet 1 g PO QID 08/08/22 01/24/24 folic acid 1 mg tablet 1 mg PO DAILY #0 tabs 08/10/22 01/24/24 atorvastatin 80 mg tablet 80 mg PO DAILY 11/18/22 01/24/24 empagliflozin 10 mg tablet 10 mg PO DAILY 11/18/22 01/24/24 (Jardiance) metoprolol succinate 50 mg 25 mg PO BID 11/18/22 01/24/24 tablet,extended release 24 hr quetiapine 100 mg tablet 100 mg PO QHS 11/18/22 01/24/24 sacubitril 24 mg-valsartan 26 mg 1 tab feeding tube BID 11/18/22 01/24/24 tablet (Entresto) valproic acid (as sodium salt) 250 300 mg PO TID 11/18/22 01/24/24 mg/5 mL oral solution bupropion HCl 100 mg tablet 300 mg PO DAILY 12/16/22 01/24/24 protein See Rx Instructions PO .COMPLEX 12/16/22 01/24/24 acetaminophen 500 mg/15 mL oral 1,000 mg (30 mL) PO Q8H PRN #237 mL 01/19/23 01/24/24 liquid ferrous sulfate 300 mg (60 mg 300 mg feeding tube .QOD 01/31/23 01/24/24 iron)/5 mL oral liquid insulin NPH isoph U-100 human 100 See Rx Instructions .Route 02/28/23 01/24/24 unit/mL (3 mL) subcutaneous pen .COMPLEX #0 mL (Humulin N NPH U-100 Insulin KwikPen) ibuprofen 100 mg/5 mL oral 600 mg PO Q8H PRN 04/04/23 01/24/24 suspension nystatin 100,000 unit/gram topical 1 applic topical TID PRN 05/03/23 01/24/24 cream nystatin 100,000 unit/gram topical 1 applic topical TID PRN 05/03/23 01/24/24 powder pantoprazole 40 mg granules 40 mg G-tube DAILY 05/03/23 01/24/24 delayed-release for susp in packet insulin glargine 100 unit/mL (3 10 unit subcut QPM 05/04/23 01/24/24 mL) subcutaneous pen (Lantus Solostar U-100 Insulin) melatonin 3 mg tablet 9 mg feeding tube HS 05/04/23 01/24/24 ondansetron HCl 4 mg tablet 8 mg feeding tube Q8H PRN 05/08/23 01/24/24 aspirin 81 mg chewable tablet 81 mg feeding tube DAILY #30 tabs 07/05/23 01/24/24 guaifenesin 200 mg/5 mL oral liquid 200 mg (5 mL) feeding tube Q4H PRN 07/05/23 01/24/24 #118 mL duloxetine 20 mg capsule,delayed 20 mg PO DAILY 01/24/24 01/24/24 release (Cymbalta) duloxetine 60 mg capsule,delayed 60 mg PO DAILY 01/24/24 01/24/24 release (Cymbalta) Previous Rx's ?Medication ?Instructions ?Recorded folic acid 1 mg tablet 1 mg PO DAILY #0 tabs 08/10/22 acetaminophen 500 mg/15 mL oral 1,000 mg (30 mL) PO Q8H PRN #237 mL 01/19/23 liquid insulin NPH isoph U-100 human 100 See Rx Instructions .Route 02/28/23 unit/mL (3 mL) subcutaneous pen .COMPLEX #0 mL (Humulin N NPH U-100 Insulin KwikPen) aspirin 81 mg chewable tablet 81 mg feeding tube DAILY #30 tabs 07/05/23 guaifenesin 200 mg/5 mL oral liquid 200 mg (5 mL) feeding tube Q4H PRN 07/05/23 #118 mL Allergies Allergy/AdvReac Type Severity Reaction Status Date / Time metformin AdvReac Unknown Diarrhea Verified 02/05/24 11:46 meperidine AdvReac gi upset Verified 02/05/24 11:46 General Stated Complaint: GenMedical ASHANTI: 4 Review of Systems Narrative: see HPI Exam Const General: cooperative, healthy appearing, comfortable, no acute distress, well developed and well groomed Nutritional Appearance: average body habitus GI Inspection: normal to inspection, no abdominal wall ecchymosis, non-distended and other (healthy appearing g tube stoma) Palpation: soft, not rigid and nontender Skin General skin exam: no rashes or lesions noted Course Vital Signs Vital signs: Vital Signs Temperature 36.2 C L 02/05/24 11:43 Pulse 70 02/05/24 11:43 Respiratory Rate 18 02/05/24 11:43 Blood Pressure 113/77 02/05/24 11:43 Pulse Oximetry 95 02/05/24 11:43 Temperature 36.2 C L 02/05/24 11:43 Temperature Source Oral 02/05/24 11:43 Pulse 70 02/05/24 11:43 Respiratory Rate 18 02/05/24 11:43 Blood Pressure 113/77 02/05/24 11:43 Blood Pressure Position Sitting 02/05/24 11:43 Pulse Oximetry 95 02/05/24 11:43 Oxygen Delivery Method Room Air 02/05/24 11:43 Oxygen Flow Rate 0 02/05/24 11:43 Medical Decision Making Quality:SDOH Health Related Social Needs: No Data to Display PFSH All Active Problems (Updated 02/05/24 @ 12:07 by Shea Carmichael) Dislodged gastrostomy tube (Acute) Acute on chronic respiratory failure with hypoxia and hypercapnia (Acute) HFrEF (heart failure with reduced ejection fraction) (Chronic) Bronchiolitis (Acute) NSTEMI (non-ST elevated myocardial infarction) (Acute) Per pt. 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) Acute respiratory failure with hypoxia (Acute) COVID (Acute) Depression (Chronic) Bipolar 1 disorder (Chronic) Diabetes (Chronic) Cholelithiasis (Chronic) Ventral hernia (Acute) Leukocytosis (Acute) Pleural effusion (Acute) Black tarry stools (Acute) Chronic diarrhea (Acute) Farrell's esophagus (Chronic) Esophageal ulcer with bleeding (Acute) Erosive esophagitis (Acute) Farrell's 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 (Acute) Hyperplastic colon polyp (Acute ~06/10/21) Tubular adenoma (Acute ~06/10/21) Neuroleptic induced parkinsonism (Acute) Drug-induced parkinsonism (Acute) Anemia (Chronic) Status post hip surgery (Acute) H/O: pneumonia (Acute) Abnormal chest xray (Acute) Pre-op evaluation (Acute) Medical History Esophageal stricture Chronic systolic (congestive) heart failure Aspiration pneumonia Stress-induced cardiomyopathy acute onset managed at [facility] 08/30 pressors, EF 25%, has since recovered RH Acute cardiogenic pulmonary edema Acute metabolic encephalopathy Bilateral pneumonia Hypokalemia Closed fracture of neck of left femur s/p Percutaneous Screw Fixation 08/09/22 Constipation Diabetes mellitus type 2 in obese Chronic iron deficiency anemia ETOH abuse Poorly controlled diabetes mellitus Chronic pancreatitis due to acute alcohol intoxication Alcohol abuse Per pt. states she has never had an issues with any subtances History of pilonidal cyst Anxiety Surgical History History of total left hip arthroplasty (01/19/23) S/P laparoscopic procedure cyst removed from stomach per patient S/P surgical removal of pilonidal cyst History of esophagogastroduodenoscopy (EGD) (~06/10/21) History of colonoscopy with polypectomy (~06/10/21) History of hysterectomy History of tonsillectomy History of section Family History Father Hypertension Diabetes Heart disease Social History Smoking/Tobacco Use Status: Never Smoking risk assessment performed?: Yes Alcohol Intake: never Drug use: Never Substance use type: does not use Household members: spouse Housing: apartment Number of Children: 2 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
[2024-02-05 12:16] VITALS: BP 113/77; PULSE 70; RESP 15; RESP 18; TEMP 36.2; O2SAT 95
--- OUTSIDE RECORDS SUMMARY | 2024-02-05 12:43 | XMS_ITS | Encounter Summary ---
Author Organization [facility] [place] [address] Care Team Providers Care Charge Master Analyst Name Role Phone Ana Gillespie APRN Primary Care Provider [phone] Encounter Details Date Type Department Care Team (Late Contact Info) Description 10/25/2023 Orders [place] [phone] David Dejesus MD [facility] [place] [address] Peptic stricture of esophagus Social History Tobacco [...] Care Team (Late st Contact Info) Description 03/10/2024 4:00 PM EDT Office Visit Cardiology at [address] [phone] Milagros Hernandez MD [facility] [place] [address] Scheduled Orders Name Type Priority Associated Diagnoses [...] esophagus documented in this encounter Care Teams Charge Master Analyst Relationship Specialty Start Date End Date Ana Gillespie APRN [address] [place] [address] PCP - General Family Medicine 02/03/19 documented as of this encounter
--- OUTSIDE RECORDS SUMMARY | 2024-02-05 12:43 | XMS_ITS | Encounter Summary ---
Author Organization [facility] [place] [address] Care Team Providers Care Overhead Crane Technician Name Role Phone Ana Gillespie VAUGHN Primary Care Provider [phone] Encounter Details Date Type Department Care Team (Late st Contact Info) Description 10/27/2023 Telephone G[facility]enterology at [facility] [place] [phone] Parris Maravilla Social History Tobacco Use Types [...] - 10/27/2023 11:43 AM EDT Jennifer Irving [id number] Diagnosis/Indication: petic stricture - follow-up dilation in [...] procedure? No You must have a responsible green party who will drive you to your procedure, stay on campus for the entire duration of your procedure, and drive you home from your procedure. Who will likely be your tow motor driver for the procedure? *Please Verify the [...] 4:00 PM EDT Office Visit Cardiology at [address] [phone] Milagros Hernandez MD [facility] [place] [address] Scheduled Procedures Name Priority Associated Diagnoses Date/Ti me EGD, UPPER GI ENDOSCOPY (WRV U 2.09) Peptic stricture of esophagus documented as of this encounter Visit Diagnoses Not on filedocumented in this encounter Care Teams Overhead Crane Technician Relationship Specialty Start Date End Date Ana Gillespie APRN [address] [place] [address] PCP - General Family Medicine 02/03/19 documented as of this encounter
--- OUTSIDE RECORDS SUMMARY | 2024-02-05 12:43 | XMS_ITS | Encounter Summary ---
Author Organization Formerly [facility], [facility] Address [facility] [place] [address] Care Team Providers Care Poultry Picking Machine Tender Name Role Phone Ana Gillespie APRN Primary Care Provider [phone] Encounter Details Date Type Department Care Team (Late st Contact Info) Description 10/07/2023 11:15 AM EDT - 10/07/2023 12:00 PM EDT [place] [address] David Dejesus MD [facility] [place] [address] EGD-ESOPHOGEAL DILATATION OVER GUIDE WIRE (WRVU 2.91) [...] the day after the procedure, use an baux-cqc-bjkifpk spray to numb your throat. Sucking on [...] occurs, please contact your Doctor. Please call [phone] before 8pm Mon-Fri with problems, questions or concerns. If you call after 8pm or on weekends, call the Hospital at [phone] and ask to speak to the Weight Guesser document preparation specialist and the booster operator will contact that person for you. [...] any problems. Where can you learn more? [facility] View your After Visit Summary and more online at [email or web address] If you would like to provide feedback about your hospital experience, please call the Office of Patient and Family Relations at . If you have received this After Visit Summary in error, please immediately return it in person to the department, or notify the [facility] Privacy Office by calling toll free at between the hours of 8AM and 5PM to arrange for our retrieval of the documents at no cost to you. Content Version: 12.2 ?? 6520-3251 [employer]. Care instructions adapted under license by [facility]. If you have questions about a medical condition or this instruction, always ask your healthcare professional. [employer] disclaims any warranty or liability for your [...] the day after the procedure, use an whzj-nnn-xvyofeg spray to numb your throat. Sucking on [...] occurs, please contact your Doctor. Please call [phone] before 8pm Mon-Fri with problems, questions or concerns. If you call after 8pm or on weekends, call the Hospital at [phone] and ask to speak to the Weight Guesser document preparation specialist and the booster operator will contact that person for you. [...] any problems. Where can you learn more? [facility] View your After Visit Summary and more online at [email or web address] If you would like to provide feedback about your hospital experience, please call the Office of Patient and Family Relations at . If you have received this After Visit Summary in error, please immediately return it in person to the department, or notify the [facility] Privacy Office by calling toll free at between the hours of 8AM and 5PM to arrange for our retrieval of the documents at no cost to you. Content Version: 12.2 ?? 4668-1065 [employer]. Care instructions adapted under license by [facility]. If you have questions about a medical condition or this instruction, always ask your healthcare professional. [employer] disclaims any warranty or liability for your [...] meter kit. 1 each 0 12/14/2014 Insulin [place], Disposable, (BD INSULIN PEN NEEDLE UF MINI) [...] glucose meter kit. 1 each 0 Insulin [place], Disposable, (BD INSULIN PEN NEEDLE UF MINI) 31 x 3/16 Needle 1 Device by [facility].(Non-Drug; Combo Route) route 3 [...] 4:00 PM EDT Office Visit Cardiology at [address] [address] Milagros Hernandez MD [facility] [address] Scheduled Procedures Name Priority Associated Diagnoses Date/Ti me EGD, UPPER GI ENDOSCOPY (WRV U 2.09) Peptic stricture of esophagus documented as of this encounter Procedures Procedure Name Priority Date/Time Associated Diagnosis Comments Up Gi Endoscopy, Jes Cervantes Guide (20389) 10/07/2023 10:44 AM EDT Peptic stricture of esophagus UPPER GI ENDOSCOPY Routine 10/07/2023 10 :34 AM EDT documented in this encounter Results * UPPER GI ENDOSCOPY (10/07/2023 10:34 AM EDT) UPPER GI ENDOSCOPY [facility] Endoscopy Procedure Date: 10/07/2023 10:34 AM ? Patient Name: Jennifer Irving ? Date of : 1960 ? Age: 63 ? Order #: [id number] ? Instrument Name: [id number] ? Procedure: ? Upper GI endoscopy Indications: ? Dysphagia Providers: ? David Dejesus MD, Veena ? Mary Geller MD: ? Medicines: ? General Anesthesia Complications: [...] RN) documented in this encounter Care Teams Poultry Picking Machine Tender Relationship Specialty Start Date End Date Ana Gillespie APRN [address] [place] [address] PCP - General Family Medicine 02/03/19 documented as of this encounter
--- OUTSIDE RECORDS SUMMARY | 2024-02-05 12:43 | XMS_ITS | Encounter Summary ---
Author Organization [facility] [place] [address] Care Team Providers Care Pantograph Machine Operator Name Role Phone Ana Gillespie VAUGHN Primary Care Provider [phone] Reason for Visit * Reason Comments Medication Refill Encounter Details Date Type Department Care Team (Late st Contact Info) Description 12/13/2023 Refill [place] [phone] Elsie Erickson DIRECTOR IT PROJECT [facility] [place] [address] Social History Tobacco Use Types Packs/Day Years Used Date Smoking Tobacco: Former Cigarettes 1 - 02/26/2021 Smokeless Tobacco: Never Comments:1PPD x 40 years, qu it 4 yearaago Alcohol Use Standard Drinks/Week Comments Not Currently 0 (1 standard drink = 0.6 oz pur e alcohol) Sex and Gender Information Value Date Recorded Sex Assigned at Not on file Gender Identity Not on file Sexual Orientation Not on file documented as of this encounter Miscellaneous Notes * Telephone Encounter - Lisa Reagan MA - 12/13/2023 2:35 PM EDT >1 year since pt seen. Message sent to secs to call and schedule as pt doesn't have [facility] available. documented in this encounter Plan of Treatment Upcoming Encounters Date Type Department Care Team (Late st Contact Info) Description 03/10/2024 4:00 PM EDT Office Visit Cardiology at [address] [address] Milagros Hernandez MD [facility] [place] [address] Scheduled Procedures Name Priority Associated Diagnoses Date/Ti me EGD, UPPER GI ENDOSCOPY (WRV U 2.09) Peptic stricture of esophagus documented as of this encounter Visit Diagnoses Not on filedocumented in this encounter Care Teams Pantograph Machine Operator Relationship Specialty Start Date End Date Ana Gillespie APRN [address] [place] [address] PCP - General Family Medicine 02/03/19 documented as of this encounter
--- OUTSIDE RECORDS SUMMARY | 2024-02-05 12:43 | XMS_ITS | Encounter Summary ---
Author Organization [facility] Address [facility] [place] [address] Care Team Providers Care Oil Field Pumper Name Role Phone Ana Gillespie VAUGHN Primary Care Provider [phone] Encounter Details Date Type Department Care Team (Latest Contact Info) Description 11/05/2023 6:41 AM EDT - 11/05/2023 9:54 AM EDT Hospital Encounter [place] [address] David Dejesus MD [facility] [place] [address] Discharge Disposition: Home Social History Tobacco Use [...] better as expected. Wednesday-Wednesday Same Day Endo [phone] Otherwise contact [phone] and ask to speak to the picture painter business control specialist Follow-up care is a fam part of [...] 180 tablet 3 10/20/2021 Blood Sugar Diagnostic (Senscio SystemsTOUCH ULTRA TEST) StripIndications:Type 2 diabetes mellitus, uncontrolled [...] meter kit. 1 each 0 12/14/2014 Insulin [place], Disposable, (BD INSULIN PEN NEEDLE UF MINI) 31 x 3/16 NeedleIndications:Josefina betes mellitus type 2, uncontrolled 1 Device by [facility].(Non-Drug; Combo Route) route 3 times daily as needed. 100 each 11 12/13/2014 documented as of this encounter Progress Notes * Valerei Johnson RN - 11/05/2023 9:45 AM EDT Patient alert and oriented, vital signs stable. Reviewed discharge instructions; patient and verbalized understanding. Copy of instruction sheet with contact numbers for questions/concerns. Pain assessment documented. Patient escorted out of department via wheelchair with /pharmacy delivery driver. documented in this encounter H&P Notes [...] glucose meter kit. 1 each 0 Insulin [place], Disposable, (BD INSULIN PEN NEEDLE UF MINI) 31 x 3/16 Needle 1 Device by [facility].(Non-Drug; Combo Route) route [...] 4:00 PM EDT Office Visit Cardiology at [address] [address] Milagros Hernandez MD [facility] CARDIOLOGY [place] [id number] Scheduled Procedures Name Priority Associated Diagnoses Date/Ti me EGD, UPPER GI ENDOSCOPY (WRV U 2.09) Peptic stricture of esophagus documented as of this encounter Procedures Procedure Name Priority Date/Time Associated Diagnosis Comments Up Gi Endoscopy, Dilatn W Guide (79033) 11/05/2023 8:34 AM EDT Peptic stricture of esophagus Dilate Esophagus (28202) 11/05/2023 8:34 AM EDT Peptic stricture of esophagus POCT GLUCOSE Routine 11/05/2023 7:50 AM EDT documented in this encounter Results * POCT Glucose (11/05/2023 7:50 AM EDT) Glucose, POC 86 65 - 199 mg/dL [facility] Comment: Supplemental ranges: <140 mg/dL before meals <180 mg/dL all other times of the day Blood 11/05/2023 7:50 AM EDT 11/05/2023 7:50 AM EDT David Dejesus MD POINT OF CARE TEST ORDERABLES [facility] [place] [address] documented in this encounter Visit Diagnoses Not [...] CRNA) documented in this encounter Care Teams Oil Field Pumper Relationship Specialty Start Date End Date Ana Gillespie APRN [address] [place] [address] PCP - General Family Medicine 02/03/19 documented as of this encounter
--- OUTSIDE RECORDS SUMMARY | 2024-02-05 12:43 | XMS_ITS | Encounter Summary ---
Author Organization [facility] [place] [address] Care Team Providers Care Granulating Blender Name Role Phone Ana Gillespie APRN Primary Care Provider [phone] Encounter Details Date Type Department Care Team (Latest Contact Info) Description 12/07/2023 Travel Social History Tobacco Use Types Packs/Day [...] PM EDT Office Visit Cardiology at [address] [address] [facility] [place] [address] Scheduled Procedures Name Priority Associated Diagnoses Date/Ti me EGD, UPPER GI ENDOSCOPY (WRV U 2.09) Peptic stricture of esophagus documented as of this encounter Visit Diagnoses Not on filedocumented in this encounter Care Teams Granulating Blender Relationship Specialty Start Date End Date Ana Gillespie APRN [address] [place] [address] PCP - General Family Medicine 02/03/19 documented as of this encounter
--- OUTSIDE RECORDS SUMMARY | 2024-02-05 12:43 | XMS_ITS | Encounter Summary ---
Author Organization [facility] Address [facility] [place] [address] Care Team Providers Care Financial Reporting Accountant Name Role Phone Ana Gillespie APRN Primary Care Provider [phone] Encounter Details Date Type Department Care Team (Late st Contact Info) Description 11/05/2023 8:36 AM EDT Anesthesia Event [place] [phone] Daryl Carmona MD [facility] [place] [address] Anesthesia Record Procedure Summary Procedure Name Responsible [...] by Sergey Jordan RN PIV 11/05/23; 0745; xbke-lsq-qggfpa catheter system; 22 gauge, 1 in length; [...] Procedure Summary Date: 11/05/23 Room / Location: [facility] ENDO 2 / [facility] Anesthesia Start: 835 Anesthesia Stop: 909 Procedures: EGD-DILATATION BY SOUND OR BOUGIE, SINGLE OR MULTIPLE PASSES (WRVU 1.28) (Trunk) EGD-ESOPHOGEAL DILATATION OVER GUIDE WIRE (WRVU 2.91) Diagnosis: Peptic stricture of esophagus (petic stricture - follow-up dilation in 2-3 weeks) Surgeons: David Dejesus MD Responsible Provider: Daryl Carmona MD Anesthesia Type: general ASA Status: 2 All Anesthesia Providers: Anesthesiologist: Daryl Carmona MD JINGLE WRITER: Annie Alfonso CRNA Vitals Value Taken Time [...] y.o. female. Procedure(s): EGD, [facility] Patient Active Problem List Diagnosis Date [...] IR G-Tube Check/Change 04/06/2023 Gavin Carrillo MD [facility] INTERVENTIONL RAD ??? IR G-TUBE CHECK/CHANGE 05/09/2023 IR G-Tube Check/Change [facility] INTERVENTION[facility] RAD ??? IR G-TUBE CHECK/CHANGE 07/09/2023 IR G-Tube Check/Change [facility] INTERVENTIONL RAD ??? IR G-TUBE CHECK/CHANGE 09/17/2023 IR G-Tube Check/Change 09/17/2023 Hang Cooper, ROSLYN [facility] INTERVENTIONL RAD ??? IR G-TUBE CHECK/CHANGE 10/14/2023 IR G-Tube Check/Change 10/14/2023 Moustapha Hart MD [facility] INTERVENTIONL RAD ??? IR G-TUBE PLACEMENT 09/11/2022 IR G-Tube Placement 09/11/2022 Moustapha Hart MD [facility] INTERVENTIONL RAD ??? IR SUTURE RELEASE 09/25/2022 IR Suture Release 09/25/2022 Yoselin Ghosh PA [facility] INTERVENTIONL RAD ??? PERCUTANEOUS GASTROSTOMY N/A 09/11/2022 PERCUTANEOUS GASTROSTOMY performed by Aiden Flores MD at [facility] CATY ??? PRO COLONOSCOPY, BIOPSY N/A 03/20/2016 COLONOSCOPY FLEXIBLE, WITH BX performed by David Dejesus MD at [facility] ENDOSCOPY ??? PRO COLONOSCOPY, DIAGNOSTIC N/A 03/01/2020 COLONOSCOPY, DIAGNOSTIC performed by David Dejesus MD at [facility] ENDOSCOPY ??? PRO ENDOSCOPIC US EXAM, ESOPH N/A 03/31/2022 UPPER EUS- ENDOSCOPIC ULTRASOUND performed by David Dejesus MD at [facility] ENDOSCOPY ??? PRO UP GI ENDOSCOPY, BALL DIL, 30MM N/A 12/24/2022 EGD,WITH DILATION ESOPHAGUS WITH BALLOON,< 30 MM (WRVU 2.67) performed by David Dejesus [facility] ENDOSCOPY ??? PRO UP GI ENDOSCOPY, BALL DIL, 30MM N/A 01/12/2023 EGD,WITH DILATION ESOPHAGUS WITH BALLOON,< 30 MM (WRVU 2.67) performed by David Dejesus [facility] ENDOSCOPY ??? PRO UP GI ENDOSCOPY, BALL DIL, 30MM N/A 02/26/2023 EGD,WITH DILATION ESOPHAGUS WITH BALLOON,< 30 MM (WRVU 2.67) performed by David Dejesus [facility] ENDOSCOPY ??? PRO UP GI ENDOSCOPY, BALL DIL, 30MM N/A 03/16/2023 EGD,WITH DILATION ESOPHAGUS WITH BALLOON,< 30 MM (WRVU 2.67) performed by David Dejesus [facility] ENDOSCOPY ??? PRO UP GI ENDOSCOPY, BALL DIL, 30MM N/A 03/30/2023 EGD,WITH DILATION ESOPHAGUS WITH BALLOON,< 30 MM (WRVU 2.67) performed by David Dejesus [facility] ENDOSCOPY ??? PRO UP GI ENDOSCOPY, BALL DIL, 30MM N/A 04/30/2023 EGD,WITH DILATION ESOPHAGUS WITH BALLOON,< 30 MM (WRVU 2.67) performed by David Dejesus [facility] ENDOSCOPY ??? PRO UP GI ENDOSCOPY, BALL DIL, 30MM N/A 06/01/2023 EGD,WITH DILATION ESOPHAGUS WITH BALLOON,< 30 MM (WRVU 2.67) performed by David Dejesus [facility] ENDOSCOPY ??? PRO UP GI ENDOSCOPY, BALL DIL, 30MM N/A 08/02/2023 EGD,WITH DILATION ESOPHAGUS WITH BALLOON,< 30 MM (WRVU 2.67) performed by David Dejesus [facility] ENDOSCOPY ??? PRO UP GI ENDOSCOPY, DILATN W GUIDE N/A 10/07/2023 EGD-ESOPHOGEAL DILATATION OVER GUIDE WIRE (WRVU 2.91) performed by David Dejesus MD at [facility] ENDOSCOPY ??? PRO UPPER GI ENDOSCOPY, BIOPSY N/A 04/03/2014 UPPER GASTROINTESTINAL ENDOSCOPY,WITH BIOPSY SINGLE OR MULTIPLE [facility] ??? PRO UPPER GI ENDOSCOPY, BIOPSY N/A 03/20/2016 EGD WITH BIOPSY performed by David Dejesus MD at [facility] ENDOSCOPY ??? PRO UPPER GI ENDOSCOPY, BIOPSY N/A 11/22/2018 EGD WITH BIOPSY (WRVU 2.49) performed by David Dejesus MD at [facility] ENDOSCOPY ??? PRO UPPER GI ENDOSCOPY, BIOPSY N/A 03/01/2020 UPPER GASTROINTESTINAL ENDOSCOPY,WITH BIOPSY SINGLE OR MULTIPLE (WRVU 2.49) performed by David Dejesus MD at [facility] ENDOSCOPY ??? PRO UPPER GI ENDOSCOPY, BIOPSY N/A 09/23/2021 EGD WITH BIOPSY (WRVU 2.49) performed by David Dejesus MD at [facility] ENDOSCOPY ??? PRO UPPER GI ENDOSCOPY, BIOPSY N/A 03/31/2022 EGD WITH BIOPSY (WRVU 2.49) performed by David Dejesus MD at [facility] ENDOSCOPY ??? PRO UPPER GI ENDOSCOPY, BIOPSY N/A 07/03/2022 EGD WITH BIOPSY (WRVU 2.49) performed by David Dejesus MD at [facility] ENDOSCOPY ??? PRO UPPER GI ENDOSCOPY, DIAGNOSTIC N/A 04/03/2014 EGD, UPPER GI ENDOSCOPY performed by David Dejesus MD at [facility] ENDOSCOPY ??? PRO UPPER GI ENDOSCOPY, DIAGNOSTIC N/A 03/01/2020 EGD, UPPER GI ENDOSCOPY performed by David Dejesus MD at [facility] ENDOSCOPY ??? PRO UPPER GI ENDOSCOPY, DIAGNOSTIC N/A 09/09/2022 EGD, UPPER GI ENDOSCOPY (WRVU 2.09) performed by Ayo Russ MD at [facility] MAIN OR Social History Tobacco Use ??? [...] there has been no significant change. Planning [facility] Region - Other Informed Consent: Anesthetic plan and risks discussed with patient. Use of blood products discussed with patient who consented to blood products. Plan discussed with JINGLE WRITER. Anesthesia Screening documented in this encounter Plan of Treatment Upcoming Encounters Date Type Department Care Team (Late st Contact Info) Description 03/10/2024 4:00 PM EDT Office Visit Cardiology at [address] [address] Milagros Hernandez MD [facility] [place] [address] Scheduled Procedures Name Priority Associated Diagnoses Date/Ti [...] mg documented in this encounter Care Teams Financial Reporting Accountant Relationship Specialty Start Date End Date Ana Gillespie APRN [address] [place] [address] PCP - General Family Medicine 02/03/19 documented as of this encounter
--- OUTSIDE RECORDS SUMMARY | 2024-02-05 12:43 | XMS_ITS | Data Portability ---
Author Organization [facility] [place] [address] Care Team Providers Care Family Support Specialist Name Role Phone CHRIS STANLEY Primary Care Provider AGGIE MAE OTHER RICHARD SANTANA OTHER FLAVIO MOSELEY OTHER Assessment Encounter Date Assessment Date Assessment LastModified by Organization Details LastModified Time 07/16/2023 07/16/2023 The following concerns were reviewed today. We agree to follow-up in 2 weeks at which time A1C will be completed. [email or web address] Not available 07/16/2023 15:30:54 Plan of Treatment Reminders Order Date Submit Date Provider Last Modified By Organization Details Last Modified Time Details Appointments Office Visit 30 2023 10:30A M Not available Not available Not available Lab hemoglobi n A1C, fingersti ck 2023 024 [email or web address] [facility], [address] [address], [id number], 07/30/2023 12:19:14 bacterial vaginosis + vaginitis panel, vaginal 2023 024 [facility] (Registration ), [address] [place] [address] [place], [address], 12/07/2023 08:25:07 hemoglobi n A1C, fingersti ck [address]23 [email or web address], [address], 12/03/2023 13:04:17 Referral None recorded. Procedures None recorded. Surgeries None recorded. Imaging None recorded. Medication Orders Mapap (acetamin ophen) 500 mg/15 mL oral liquid 2023 024 [email or web address] [facility], [address] [place] [address], [id number], 06/30/2023 10:46:36 Desitin 40 % topical paste 2023 024 JOSE MANUEL [facility], [address] [place] [address], [id number], 07/16/2023 09:39:52 fluconazo le 40 mg/mL oral suspensio n 2023 024 JOSE MANUEL [facility], [address] [place] [address], [id number], 07/30/2023 10:47:32 Cymbalta 20 mg capsule,d elayed release 2023 024 [facility], [address] [place] [address], [id number], 12/03/2023 11:06:36 duloxetin e 60 mg capsule,d elayed release 2023 024 JOSE MANUEL [facility], [address] [place] [address], [id number], 09/01/2023 11:42:23 ondansetr on HCl 4 mg tablet 2023 024 [email or web address] [facility], [address] [place] [address], [id number], 09/01/2023 11:26:22 Entresto 24 mg-26 mg tablet 2023 024 [email or web address] [facility], [address] [place] [address], [id number], 09/01/2023 11:26:22 duloxetin e 20 mg capsule,d elayed release 2023 024 [id number] [facility], [address] [place], [address], 12/04/2023 09:48:58 clotrimaz ole 1 % topical cream 2023 024 JOSE MANUEL [facility], [address] [place], [address], 12/04/2023 09:22:02 Likmez 500 mg/5 mL oral suspensio n 2023 024 JOSE MANUEL [facility], [address] [place], [address], 12/04/2023 09:26:17 Patient TargetsNo targets recorded. Patient InstructionsNo instructions recorded. 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 once visit is complete please send us the office notes. 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 Hea ring loss to go with ENT referral Referring Physician: Chris Stanley [facility], Encounter Date: 04/12/2023 Results Created Date Observation Date Name Description Value Unit Range Abnormal Flag Note LastModifiedBy Organization Detail LastModifiedTime 06/29/19 24 06/29/2023 influ marco (A+B) Ag, qual, rapid , nose Influenza A negati ve Not Available [address], [address], 06/29/2023 08:40:52 06/29/19 24 06/29/2023 influ marco (A+B) Ag, qual, rapid , nose Influenza B negati ve Not Available [facility] [address], [place], [address], 06/29/2023 08:40:52 07/02/19 24 07/02/2023 VENOU S BLOOD GAS pH (venous) 7.27 7.31-7 .41 low Not Available [address] [place], [address] 07/02/2023 12:28:02 07/02/19 24 07/02/2023 VENOU S BLOOD GAS pCO2 (venous) 71 mmHg 41-51 panic high Criti tonya value repor gabbie to and readb ack from LYUDMILA VEGA ,ERT at 1224 07/02 by ARELY CONWAY Not Available [address] [place], [address] 07/02/2023 12:28:02 07/02/19 24 07/02/2023 VENOU S BLOOD GAS pO2 (venous) 44 mmHg Not Available [address] [place], [address] 07/02/2023 12:28:02 07/02/19 24 07/02/2023 VENOU S BLOOD GAS TCO2 (venous) 30 mmol/ L 24-29 high Not Available [address] [place], [address] 07/02/2023 12:28:02 07/02/19 24 07/02/2023 VENOU S BLOOD GAS HCO3 (venous) 32 mmol/ L 23-28 high Not Available [address] [place], [address] 07/02/2023 12:28:02 07/02/19 24 07/02/2023 VENOU S BLOOD GAS BE (venous) 5 mmol/ L -2-3 high Not Available [address] [place], [address] 07/02/2023 12:28:02 07/02/19 24 07/02/2023 VENOU S BLOOD GAS O2 sat (venous) 71 % Not Available [facility] [address] [place], [address] 07/02/2023 12:28:02 07/02/19 24 07/02/2023 COMPL ETE BLOOD COUNT W/DIF F WBC 14.79 10_3/ uL 4.4-10 .8 high Not Available [address] [place], [address] 07/02/2023 12:30:06 07/02/19 24 07/02/2023 COMPL ETE BLOOD COUNT W/DIF F RBC 4.78 10_6/ uL 3.93-5 .22 normal Not Available [address] [place], [address] 07/02/2023 12:30:06 07/02/19 24 07/02/2023 COMPL ETE BLOOD COUNT W/DIF F HGB 13.6 g/dL 11.2-1 5.7 normal Not Available [address] [place], [address] 07/02/2023 12:30:06 07/02/19 24 07/02/2023 COMPL ETE BLOOD COUNT W/DIF F HCT 42.3 % 36.0-4 6.0 normal Not Available [address] [place], [address] 07/02/2023 12:30:06 07/02/19 24 07/02/2023 COMPL ETE BLOOD COUNT W/DIF F MCV 89 fL 80-95 normal Not Available Medardo tarango [address] [place], [address] 07/02/2023 12:30:06 07/02/19 24 07/02/2023 COMPL ETE BLOOD COUNT W/DIF F MCH 28.5 pg 27.0-3 3.0 normal Not Available [address] [place], [address] 07/02/2023 12:30:06 07/02/19 24 07/02/2023 COMPL ETE BLOOD COUNT W/DIF F MCHC 32.2 % 32.0-3 6.0 normal Not Available [address] [place], [address] 07/02/2023 12:30:06 07/02/19 24 07/02/2023 COMPL ETE BLOOD COUNT W/DIF F RDW 15.4 % 11.7-1 4.6 high Not Available [address] [place], [address] 07/02/2023 12:30:06 07/02/19 24 07/02/2023 COMPL ETE BLOOD COUNT W/DIF F platelet count 244 10_3/ uL 130-40 0 normal Not Available [address] [place], [address] 07/02/2023 12:30:06 07/02/19 24 07/02/2023 COMPL ETE BLOOD COUNT W/DIF F MPV 10.8 fL 8.0-11 .0 normal Not Available [address] [place], [address] 07/02/2023 12:30:06 07/02/19 24 07/02/2023 COMPL ETE BLOOD COUNT W/DIF F neutrophils % 74.3 Not Available [address] [place], [address] 07/02/2023 12:30:06 07/02/19 24 07/02/2023 COMPL ETE BLOOD COUNT W/DIF F lymphocytes % 10.8 Not Available [address] [place], [address] 07/02/2023 12:30:06 07/02/19 24 07/02/2023 COMPL ETE BLOOD COUNT W/DIF F monocytes % 5.3 Not Available [address] [place], [address] 07/02/2023 12:30:06 07/02/19 24 07/02/2023 COMPL ETE BLOOD COUNT W/DIF F eosinophils % 8.6 Not Available [address] [place], [address] 07/02/2023 12:30:06 07/02/19 24 07/02/2023 COMPL ETE BLOOD COUNT W/DIF F basophils % 0.7 Not Available [address] [place], [address] 07/02/2023 12:30:06 07/02/19 24 07/02/2023 COMPL ETE BLOOD COUNT W/DIF F immature grans % 0.3 Not Available [facility] [address] [place], [address] 07/02/2023 12:30:06 07/02/19 24 07/02/2023 COMPL ETE BLOOD COUNT W/DIF F nucleated RBC 0.0 % 0.0-0. 3 normal Not Available [address] [place], [address] 07/02/2023 12:30:06 07/02/19 24 07/02/2023 COMPL ETE BLOOD COUNT W/DIF F absolute neutrophil count 10.99 10_3/ uL 1.2-6. 7 high Not Available [address] [place], [address] 07/02/2023 12:30:06 07/02/19 24 07/02/2023 COMPL ETE BLOOD COUNT W/DIF F absolute lymphocyte count 1.60 10_3/ uL 1.2-3. 4 normal Not Available [address] [place], [address] 07/02/2023 12:30:06 07/02/19 24 07/02/2023 COMPL ETE BLOOD COUNT W/DIF F absolute monocyte count 0.78 10_3/ uL 0.1-0. 8 normal Not Available [address] [place], [address] 07/02/2023 12:30:06 07/02/19 24 07/02/2023 COMPL ETE BLOOD COUNT W/DIF F absolute eosinophil count 1.27 10_3/ uL 0.0-0. 7 high Not Available [address] [place], [address] 07/02/2023 12:30:06 07/02/19 24 07/02/2023 COMPL ETE BLOOD COUNT W/DIF F absolute basophil count 0.10 10_3/ uL 0.0-0. 2 normal Not Available [address] [place], [address] 07/02/2023 12:30:06 07/02/19 24 07/02/2023 BASIC METAB OLIC PANEL calcium 9.8 mg/dL 8.5-10 .1 normal Not Available [address] [place], [address] 07/02/2023 12:47:07 07/02/19 24 07/02/2023 BASIC METAB OLIC PANEL glucose 113 mg/dL 74-106 high Not Available Medardo tarango [address] [place], [address] 07/02/2023 12:47:07 07/02/19 24 07/02/2023 BASIC METAB OLIC PANEL BUN 11 mg/dL 7-18 normal Not Available Medardo tarango [address] [place], [address] 07/02/2023 12:47:07 07/02/19 24 07/02/2023 BASIC METAB OLIC PANEL creatinine 0.8 mg/dL 0.55-1 .02 normal Not Available [address] [place], [address] 07/02/2023 12:47:07 07/02/19 24 07/02/2023 BASIC METAB OLIC PANEL estimated GFR 82.74 mL/min /1.73m 2 The eGFR is calcu lated from a serum creat inine using the CKD-E PI 2020 equat ion. Other varia bles requi red for the equat ion are gende r and age; this equat ion does not inclu de a race coeff icien t. This equat ion has simil ar overa ll perfo rmanc e to previ ous equat ions excep t value s may diffe r, in parti cular , in patie nts with highe r value s of eGFR and young er-ag ed adult s. Not Available [address] [place], [address] 07/02/2023 12:47:07 07/02/19 24 07/02/2023 BASIC METAB OLIC PANEL sodium 142 mmol/ L 136-14 5 normal Not Available [address] [place], [address] 07/02/2023 12:47:07 07/02/19 24 07/02/2023 BASIC METAB OLIC PANEL potassium 4.5 mmol/ L 3.5-5. 1 normal Not Available [address] [place], [address] 07/02/2023 12:47:07 07/02/19 24 07/02/2023 BASIC METAB OLIC PANEL chloride 102 mmol/ L 98-107 normal Not Available [address] [place], [address] 07/02/2023 12:47:07 07/02/19 24 07/02/2023 BASIC METAB OLIC PANEL CO2 31.4 mmol/ L 21.0-3 2.0 normal Not Available [address] [place], [address] 07/02/2023 12:47:07 07/02/19 24 07/02/2023 BASIC METAB OLIC PANEL anion gap 8.6 mmol/ L 3-11 normal Not Available [address] [place], [address] 07/02/2023 12:47:07 07/02/19 24 07/02/2023 CARDI AC TROPO MONI I cardiac troponin I 203 NG/L < or =60 panic high Criti tonya value repor gabbie to and readb ack from LYUDMILA VEGA ,KATI at 1243 07/02 by LAB.G ERJ An eleva gabbie/a bnorm al tropo moni value above 60ng/ L (whic h is the 99th perce ntile cutof f of a aminta l, healt hy refer ence popul ation ) must be inter prete d in the delfina xt of the clini tonya prese ntati on. Clini tonya and labor atory corre latio n is requi red to evalu ate for an acute myoca rdial infar ction . The resul ts of this assay can be false ly lower ed due to the consu mptio n of Biotvianey n (Paola min B7). Not Available [address] [place], [address] 07/02/2023 12:47:08 07/02/19 24 07/02/2023 COVID /FLU/ RSV PCR source Nasoph arynx Not Available [address] [place], [address] 07/02/2023 13:22:12 07/02/19 24 07/02/2023 COVID /FLU/ RSV PCR covid-19 PCR Negati ve negati ve This test has not been FDA clear ed or appro sonia. This test has been autho rized by the FDA under an Emerg ency Use Autho rizat ion for use by autho rized labor atori es. This test has been autho rized only for detec tion of nucle ic acid from the 2019 novel coron a virus (2019 -nCoV ), influ marco A, influ marco B, and respi rator y syncy tial virus (RSV) , and not for the detec tion of any other virus es or patho gens. This test is only autho rized for the durat ion of the decla ratio n that circu mstan dov exist justi fying the autho rizat ion of emerg ency use of in vitro diagn ostic tests for detec tion and/o r diagn osis of 2018- nCoV under secti on 564(b )(1) of Act, 21 U.S.C ??? 360bb b-3(b )(1), unles s the autho rizat ion is termi nated or revok ed soone r. Negat yissel resul ts do not precl ude 2019- nCoV, influ marco, and/o r RSV infec tion and shoul d not be used as the sole basis for treat ment or other patie nt manag ement decis ions. Negat yissel resul ts must be combi david with clini tonya obser vatio ns, patie nt histo ry, and epide miolo gical infor francesca nYisel Testi ng perfo rmed at [facility] (CLIA #[id number]) on the Cephe id GeneX pert. Not Available [address] [place], [address] 07/02/2023 13:22:12 07/02/19 24 07/02/2023 COVID /FLU/ RSV PCR influenza A PCR Negati ve negati ve Not Available [address] [place], [address] 07/02/2023 13:22:12 07/02/19 24 07/02/2023 COVID /FLU/ RSV PCR influenza B PCR Negati ve negati ve Not Available [address] [place], [address] 07/02/2023 13:22:12 07/02/19 24 07/02/2023 COVID /FLU/ RSV PCR RSV PCR Negati ve negati ve Not Available [address] [place], [address] 07/02/2023 13:22:12 07/02/19 24 07/02/2023 VENOU S BLOOD GAS pH (venous) 7.31 7.31-7 .41 normal Not Available [address] [place], [address] 07/02/2023 14:51:21 07/02/19 24 07/02/2023 VENOU S BLOOD GAS pCO2 (venous) 58 mmHg 41-51 high Not Available [address] [place], [address] 07/02/2023 14:51:21 07/02/19 24 07/02/2023 VENOU S BLOOD GAS pO2 (venous) 42 mmHg Not Available [address] [place], [address] 07/02/2023 14:51:21 07/02/19 24 07/02/2023 VENOU S BLOOD GAS TCO2 (venous) 26 mmol/ L 24-29 normal Not Available [address] [place], [address] 07/02/2023 14:51:21 07/02/19 24 07/02/2023 VENOU S BLOOD GAS HCO3 (venous) 29 mmol/ L 23-28 high Not Available [address] [place], [address] 07/02/2023 14:51:21 07/02/19 24 07/02/2023 VENOU S BLOOD GAS BE (venous) 2 mmol/ L -2-3 normal Not Available [address] [place], [address] 07/02/2023 14:51:21 07/02/19 24 07/02/2023 VENOU S BLOOD GAS O2 sat (venous) 72 % Not Available [facility] [address] [place], [address] 07/02/2023 14:51:21 07/02/19 24 07/02/2023 CARDI AC TROPO MONI I cardiac troponin I 434 NG/L < or =60 panic high Criti tonya value repor gabbie to and readb ack from ERIN PRIEST (EATING DISORDER SPECIALIST), ER at 1508 07/02 by LAB.I JESSICA An eleva gabbie/a bnorm al tropo moni value above 60ng/ L (whic h is the 99th perce ntile cutof f of a aminta l, healt hy refer ence popul ation ) must be inter prete d in the delfina xt of the clini tonya prese ntati on. Clini tonya and labor atory corre latio n is requi red to evalu ate for an acute myoca rdial infar ction . The resul ts of this assay can be false ly lower ed due to the consu mptio n of Bioti n (Paola min B7). Not Available [address] [place], [address] 07/02/2023 15:14:23 07/02/19 24 07/02/2023 CARDI AC TROPO MONI I cardiac troponin I 504 NG/L < or =60 panic high Criti tonya value repor gabbie to and readb ack from CELY TRUJILLO (ICU) , RN at 1754 07/02 by LAB.I JESSICA An eleva gabbie/a bnorm al tropo moni value above 60ng/ L (whic h is the 99th perce ntile cutof f of a aminta l, healt hy refer ence popul ation ) must be inter prete d in the delfina xt of the clini tonya prese ntati on. Clini tonya and labor atory corre latio n is requi red to evalu ate for an acute myoca rdial infar ction . The resul ts of this assay can be false ly lower ed due to the consu mptio n of Bioti n (Paola min B7). Not Available [address] [place], [address] 07/02/2023 18:00:48 07/02/19 24 07/02/2023 GRAM STAIN gram stain Gram Stain GRAM STAIN (REPO RT) Few White Blood Cells Rare Epith elial Cells Few Mixed Gram Posit yissel Travis ; None Predo minan t Not Available [address] [place], [address] 07/02/2023 20:36:09 07/02/19 24 07/02/2023 CARDI AC TROPO MONI I cardiac troponin I 500 NG/L < or =60 panic high Criti tonya value TROPO MONI repor gabbie to and readb ack from KURTIS MARCOS, RN M/S at 07/02 by LAB.M ARC An eleva gabbie/a bnorm al tropo moni value above 60ng/ L (whic h is the 99th perce ntile cutof f of a aminta l, healt hy refer ence popul ation ) must be inter prete d in the delfina xt of the clini tonya prese ntati on. Clini tonya and labor atory corre latio n is requi red to evalu ate for an acute myoca rdial infar ction . The resul ts of this assay can be false ly lower ed due to the consu mptio n of Bioti n (Paola min B7). Not Available [address] [place], [address] 07/02/2023 21:01:00 07/02/19 24 07/02/2023 LAB ADD ON TEST lab add on test DONE Not Available [address] [place], [address] 07/02/2023 21:49:06 07/02/19 24 07/02/2023 PROCA LCITO MONI procalcitoni n < 0.1 NG/mL PCT Value (ng/m L): Inter preta tion: <0.5 Low risk for sever e sepsi s/sep tic shock >or=0 .5 and <2.0 Sever e sepsi s/sep tic shock is possi ble >or=2 .0 High risk for sever e sepsi s/sep tic shock Note: Decis ions regar ding antib iotic thera py shoul d NOT be based solel y on proca lcito moni real ntrat ions. A proca lcito moni real ntrat ion of <0.5 ng/mL does not entir joe exclu de syste chavo bacte rial infec tion/ sepsi s. Corre latio n with the full clini tonya, imagi ng, and labor atory findi ngs is requi red for a compl ete sepsi s evalu ation . Addit ional ly, eleva gabbie proca lcito moni real ntrat ions may not alway s be relat ed to syste chavo bacte rial infec tion and can be seen in the setti ng of sever e amador , major traum a, major surge ry, pancr eatit is, bowel ische contreras, asept ic syste chavo shock (anap hylac tic, hemor rhagi c, or cardi ogeni c), renal insuf ficie ncy, medul stew thyro id cance r, small cell lung cance r, drugs stimu latin g pro-i nflam mator y cytok elis, invas yissel funga l infec tions , Kaw[place] dean disea se, among other cause s. Not Available [address] [place], [address] 07/02/2023 22:37:10 07/02/19 24 07/03/2023 SPUTU M AEROB IC CULTU RE sputum aerobic culture Sputu m Aerob ic Cultu re APPEA RYLAN Aminta l Travis GROWT H(REP ORT) RARE GROWT H Day 1 Resul t ISOLA MARIANELA BELOW O:NF (ORGA NISM ID: 1.1) - AMINTA L TRAVIS Sputu m Aerob ic Cultu re (ORGA NISM ID: 1.1) - GROWT H(REP ORT) (ORGA NISM ID: 1.1) - RARE GROWT H Not Available [address] [place], [address] 07/03/2023 08:51:17 07/02/19 24 07/04/2023 SPUTU M AEROB IC CULTU RE sputum aerobic culture Sputu m Aerob ic Cultu re Presu mptiv e ident ifica tion of EZEKIEL DA ALBIC ANS based on colon y morph ology . APPEA RYLAN Aminta l Travis APPEA RYLAN Aminta l Travis APPEA RYLAN Yeast GROWT H(REP ORT) RARE GROWT H GROWT H(REP ORT) RARE GROWT H GROWT H(REP ORT) RARE GROWT H Day 1 Resul t ISOLA MARIANELA BELOW Day 2 Resul t ISOLA MARIANELA BELOW O:NF (ORGA NISM ID: 1.1) - AMINTA L TRAVIS Sputu m Aerob ic Cultu re (ORGA NISM ID: 1.1) - GROWT H(REP ORT) (ORGA NISM ID: 1.1) - RARE GROWT H O:CAN ALB (ORGA NISM ID: 1.2) - EZEKIEL DA ALBIC ANS Sputu m Aerob ic Cultu re (ORGA NISM ID: 1.2) - GROWT H(REP ORT) (ORGA NISM ID: 1.2) - RARE GROWT H Not Available [facility] [address], [place], [address] 07/04/2023 11:01:16 07/02/19 24 07/05/2023 SPUTU M AEROB IC CULTU RE sputum aerobic culture Sputu m Aerob ic Cultu re Presu mptiv e ident ifica tion of EZEKIEL DA ALBIC ANS based on colon y morph ology . APPEA RYLAN Aminta l Travis APPEA RYLAN Aminta l Travis APPEA RYLAN Yeast APPEA RYLAN Aminta l Travis APPEA RYLAN Yeast GROWT H(REP ORT) RARE GROWT H GROWT H(REP ORT) RARE GROWT H GROWT H(REP ORT) RARE GROWT H GROWT H(REP ORT) RARE GROWT H GROWT H(REP ORT) RARE GROWT H Day 1 Resul t ISOLA MARIANELA BELOW Day 2 Resul t ISOLA MARIANELA BELOW Day 3 Resul t ISOLA MARIANELA BELOW O:NF (ORGA NISM ID: 1.1) - AMINTA L TRAVIS Sputu m Aerob ic Cultu re (ORGA NISM ID: 1.1) - GROWT H(REP ORT) (ORGA NISM ID: 1.1) - RARE GROWT H O:CAN ALB (ORGA NISM ID: 1.2) - EZEKIEL DA ALBIC ANS Sputu m Aerob ic Cultu re (ORGA NISM ID: 1.2) - GROWT H(REP ORT) (ORGA NISM ID: 1.2) - RARE GROWT H Not Available [address] [place], [address] 07/05/2023 09:10:04 07/02/19 24 07/07/2023 MYCOP LASMA PNEUM ONIAE , PCR specimen source sputum Not Available [facility] [address] [place], [address] 07/07/2023 16:28:33 07/02/19 24 07/07/2023 MYCOP LASMA PNEUM ONIAE , PCR mycoplasma pneumoniae PCR Negati ve negati ve ----- ----- ----- ----A DDITI ONAL INFOR MATIO N---- ----- ----- ----- This test was devel oped and its perfo rmanc e misty cteri stics deter mined by [facility] in a arie r consi stent with JARETT yuan ts. This test has not been clear ed or appro sonia by the U.S. Food and Drug Admin istra tion. Test Perfo rmed by: [facility] [place] [facility] [address] , [place] [address] Lab Direc tor: Noel Lorenz. Ph.D. ; CLIA# [id number] Not Available [address] [place], [address] 07/07/2023 16:28:33 07/02/19 24 07/07/2023 STREP TOCOC CUS PNEUM ONIAE AG, U streptococcu s pneumoniae Ag, U Negati ve negati ve Negat yissel for pneum ococc al pneum onia, sugge sting no curre nt or recen t infec tion. Infec tion due to S. pneum oniae canno t be ruled out since the antig en prese nt in the sampl e may be below detec tion limit of the test. ----- ----- ----- ----A DDITI ONAL INFOR MATIO N---- ----- ----- ----- This assay was perfo rmed using the FDA-c leare d Binax NOW Strep tococ cus pneum oniae Antig en test, a rapid immun ochro matog raphi c assay . Test Perfo rmed by: [facility] [place] [address], [place] [address] Lab Direc tor: Noel Kunz Ph.D. ; CLIA# [id number] Not Available [address] [place], [address] 07/08/2023 08:43:22 07/02/19 24 07/03/2023 LEGIO SHANNON AG DETEC TION URINE legionella Ag detection urine Negati ve negati ve Test perfo rmed or refer red by [facility] [address], [place] [address] Not Available [address] [place], [address] 07/08/2023 08:43:22 07/03/19 24 07/03/2023 COMPL ETE BLOOD COUNT W/DIF F WBC 11.19 10_3/ uL 4.4-10 .8 high Not Available [address] [place], [address] 07/03/2023 07:26:12 07/03/19 24 07/03/2023 COMPL ETE BLOOD COUNT W/DIF F RBC 4.71 10_6/ uL 3.93-5 .22 normal Not Available [address] [place], [address] 07/03/2023 07:26:12 07/03/19 24 07/03/2023 COMPL ETE BLOOD COUNT W/DIF F HGB 13.3 g/dL 11.2-1 5.7 normal Not Available [address] [place], [address] 07/03/2023 07:26:12 07/03/1907/03/2023 COMPL ETE BLOOD COUNT W/DIF F HCT 40.7 % 36.0-4 6.0 normal Not Available [address] [place], [address] 07/03/2023 07:26:12 07/03/1907/03/2023 COMPL ETE BLOOD COUNT W/DIF F MCV 86 fL 80-95 normal Not Available Medardo tarango [address] [place], [address] 07/03/2023 07:26:12 07/03/1907/03/2023 COMPL ETE BLOOD COUNT W/DIF F MCH 28.2 pg 27.0-3 3.0 normal Not Available [address] [place], [address] 07/03/2023 07:26:12 07/03/19 24 07/03/2023 COMPL ETE BLOOD COUNT W/DIF F MCHC 32.7 % 32.0-3 6.0 normal Not Available [address] [place], [address] 07/03/2023 07:26:12 07/03/19 24 07/03/2023 COMPL ETE BLOOD COUNT W/DIF F RDW 15.4 % 11.7-1 4.6 high Not Available [address] [place], [address] 07/03/2023 07:26:12 07/03/1907/03/2023 COMPL ETE BLOOD COUNT W/DIF F platelet count 275 10_3/ uL 130-40 0 normal Not Available [address] [place], [address] 07/03/2023 07:26:12 07/03/1907/03/2023 COMPL ETE BLOOD COUNT W/DIF F MPV 11.3 fL 8.0-11 .0 high Not Available [address] [place], [address] 07/03/2023 07:26:12 07/03/19 24 07/03/2023 COMPL ETE BLOOD COUNT W/DIF F neutrophils % 74.2 Not Available [address] [place], [address] 07/03/2023 07:26:12 07/03/1907/03/2023 COMPL ETE BLOOD COUNT W/DIF F lymphocytes % 16.6 Not Available [address] [place], [address] 07/03/2023 07:26:12 07/03/1907/03/2023 COMPL ETE BLOOD COUNT W/DIF F monocytes % 8.0 Not Available [address] [place], [address] 07/03/2023 07:26:12 07/03/1907/03/2023 COMPL ETE BLOOD COUNT W/DIF F eosinophils % 0.3 Not Available [address] [place], [address] 07/03/2023 07:26:12 07/03/1907/03/2023 COMPL ETE BLOOD COUNT W/DIF F basophils % 0.5 Not Available [address] [place], [address] 07/03/2023 07:26:12 07/03/1907/03/2023 COMPL ETE BLOOD COUNT W/DIF F immature grans % 0.4 Not Available [address] [place], [address] 07/03/2023 07:26:12 07/03/1907/03/2023 COMPL ETE BLOOD COUNT W/DIF F nucleated RBC 0.0 % 0.0-0. 3 normal Not Available [address] [place], [address] 07/03/2023 07:26:12 07/03/1907/03/2023 COMPL ETE BLOOD COUNT W/DIF F absolute neutrophil count 8.30 10_3/ uL 1.2-6. 7 high Not Available [address] [place], [address] 07/03/2023 07:26:12 07/03/19 24 07/03/2023 COMPL ETE BLOOD COUNT W/DIF F absolute lymphocyte count 1.86 10_3/ uL 1.2-3. 4 normal Not Available [address] [place], [address] 07/03/2023 07:26:12 07/03/19 24 07/03/2023 COMPL ETE BLOOD COUNT W/DIF F absolute monocyte count 0.90 10_3/ uL 0.1-0. 8 high Not Available [address] [place], [address] 07/03/2023 07:26:12 07/03/1907/03/2023 COMPL ETE BLOOD COUNT W/DIF F absolute eosinophil count 0.03 10_3/ uL 0.0-0. 7 normal Not Available [address] [place], [address] 07/03/2023 07:26:12 07/03/19 24 07/03/2023 COMPL ETE BLOOD COUNT W/DIF F absolute basophil count 0.06 10_3/ uL 0.0-0. 2 normal Not Available [address] [place], [address] 07/03/2023 07:26:12 07/03/19 24 07/03/2023 BASIC METAB OLIC PANEL calcium 9.7 mg/dL 8.5-10 .1 normal Not Available [address] [place], [address] 07/03/2023 07:28:10 07/03/19 24 07/03/2023 BASIC METAB OLIC PANEL glucose 107 mg/dL 74-106 high Not Available Medardo tarango [address] [place], [address] 07/03/2023 07:28:10 07/03/1907/03/2023 BASIC METAB OLIC PANEL BUN 17 mg/dL 7-18 normal Not Available Medardo tarango [address] [place], [address] 07/03/2023 07:28:10 07/03/1907/03/2023 BASIC METAB OLIC PANEL creatinine 1.0 mg/dL 0.55-1 .02 normal Not Available [address] [place], [address] 07/03/2023 07:28:10 07/03/1907/03/2023 BASIC METAB OLIC PANEL estimated GFR 63.30 mL/min /1.73m 2 The eGFR is calcu lated from a serum creat inine using the CKD-E PI 2020 equat ion. Other varia bles requi red for the equat ion are gende r and age; this equat ion does not inclu de a race coeff icien t. This equat ion has simil ar overa ll perfo rmanc e to previ ous equat ions excep t value s may diffe r, in parti cular , in patie nts with highe r value s of eGFR and young er-ag ed adult s. Not Available [address] [place], [address] 07/03/2023 07:28:10 07/03/19 24 07/03/2023 BASIC METAB OLIC PANEL sodium 139 mmol/ L 136-14 5 normal Not Available [address] [place], [address] 07/03/2023 07:28:10 07/03/19 24 07/03/2023 BASIC METAB OLIC PANEL potassium 4.5 mmol/ L 3.5-5. 1 normal Not Available [address] [place], [address] 07/03/2023 07:28:10 07/03/19 24 07/03/2023 BASIC METAB OLIC PANEL chloride 102 mmol/ L 98-107 normal Not Available [address] [place], [address] 07/03/2023 07:28:10 07/03/1907/03/2023 BASIC METAB OLIC PANEL CO2 26.2 mmol/ L 21.0-3 2.0 normal Not Available [address] [place], [address] 07/03/2023 07:28:10 07/03/19 24 07/03/2023 BASIC METAB OLIC PANEL anion gap 10.8 mmol/ L 3-11 normal Not Available [address] [place], [address] 07/03/2023 07:28:10 07/03/1907/03/2023 MAGNE SIUM magnesium 1.9 mg/dL 1.8-2. 4 normal Not Available [address] [place], [address] 07/03/2023 07:28:10 07/04/1907/04/2023 VENOU S BLOOD GAS pH (venous) 7.53 7.31-7 .41 high Not Available [address] [place], [address] 07/04/2023 02:56:01 07/04/1907/04/2023 VENOU S BLOOD GAS pCO2 (venous) 34 mmHg 41-51 low Not Available [facility] [address] [place], [address] 07/04/2023 02:56:01 07/04/19 24 07/04/2023 VENOU S BLOOD GAS pO2 (venous) 60 mmHg Not Available [address] [place], [address] 07/04/2023 02:56:01 07/04/19 24 07/04/2023 VENOU S BLOOD GAS TCO2 (venous) 25 mmol/ L 24-29 normal Not Available [address] [place], [address] 07/04/2023 02:56:01 07/04/19 24 07/04/2023 VENOU S BLOOD GAS HCO3 (venous) 28 mmol/ L 23-28 normal Not Available [address] [place], [address] 07/04/2023 02:56:01 07/04/19 24 07/04/2023 VENOU S BLOOD GAS BE (venous) 6 mmol/ L -2-3 high Not Available [address] [place], [address] 07/04/2023 02:56:01 07/04/19 24 07/04/2023 VENOU S BLOOD GAS O2 sat (venous) 93 % Not Available [place] [address] [facility] [place], [address] 07/04/2023 02:56:01 07/04/1907/04/2023 CARDI AC TROPO MONI I cardiac troponin I 192 NG/L < or =60 panic high Criti tonya value repor gabbie TROPO MONI to and readb ack from AMINA CHASE RN MS/S at 07/04 by LAB.M ARC An eleva gabbie/a bnorm al tropo moni value above 60ng/ L (whic h is the 99th perce ntile cutof f of a aminta l, healt hy refer ence popul ation ) must be inter prete d in the delfina xt of the clini tonya prese ntati on. Clini tonya and labor atory corre latio n is requi red to evalu ate for an acute myoca rdial infar ction . The resul ts of this assay can be false ly lower ed due to the consu mptio n of Bioti n (Paola min B7). Not Available [address] [place], [address] 07/04/2023 03:20:02 07/04/19 24 07/04/2023 COMPL ETE BLOOD COUNT W/DIF F WBC 8.91 10_3/ uL 4.4-10 .8 normal Not Available [address] [place], [address] 07/04/2023 06:19:05 07/04/19 24 07/04/2023 COMPL ETE BLOOD COUNT W/DIF F RBC 4.07 10_6/ uL 3.93-5 .22 normal Not Available [address] [place], [address] 07/04/2023 06:19:05 07/04/19 24 07/04/2023 COMPL ETE BLOOD COUNT W/DIF F HGB 11.4 g/dL 11.2-1 5.7 normal Not Available [address] [place], [address] 07/04/2023 06:19:05 07/04/19 24 07/04/2023 COMPL ETE BLOOD COUNT W/DIF F HCT 34.8 % 36.0-4 6.0 low Not Available [address] [place], [address] 07/04/2023 06:19:05 07/04/1907/04/2023 COMPL ETE BLOOD COUNT W/DIF F MCV 86 fL 80-95 normal Not Available Medardo [address] [place], [address] 07/04/2023 06:19:05 07/04/1907/04/2023 COMPL ETE BLOOD COUNT W/DIF F MCH 28.0 pg 27.0-3 3.0 normal Not Available [address] [place], [address] 07/04/2023 06:19:05 07/04/1907/04/2023 COMPL ETE BLOOD COUNT W/DIF F MCHC 32.8 % 32.0-3 6.0 normal Not Available [address] [place], [address] 07/04/2023 06:19:05 07/04/19 24 07/04/2023 COMPL ETE BLOOD COUNT W/DIF F RDW 16.0 % 11.7-1 4.6 high Not Available [address] [place], [address] 07/04/2023 06:19:05 07/04/19 24 07/04/2023 COMPL ETE BLOOD COUNT W/DIF F platelet count 200 10_3/ uL 130-40 0 normal Not Available [address] [place], [address] 07/04/2023 06:19:05 07/04/19 24 07/04/2023 COMPL ETE BLOOD COUNT W/DIF F MPV 11.3 fL 8.0-11 .0 high Not Available [address] [place], [address] 07/04/2023 06:19:05 07/04/19 24 07/04/2023 COMPL ETE BLOOD COUNT W/DIF F neutrophils % 57.8 Not Available Puja burris [address] [place], [address] 07/04/2023 06:19:05 07/04/19 24 07/04/2023 COMPL ETE BLOOD COUNT W/DIF F lymphocytes % 31.2 Not Available [address] [place], [address] 07/04/2023 06:19:05 07/04/19 24 07/04/2023 COMPL ETE BLOOD COUNT W/DIF F monocytes % 8.9 Not Available [address] [place], [address] 07/04/2023 06:19:05 07/04/1907/04/2023 COMPL ETE BLOOD COUNT W/DIF F eosinophils % 1.2 Not Available [address] [place], [address] 07/04/2023 06:19:05 07/04/1907/04/2023 COMPL ETE BLOOD COUNT W/DIF F basophils % 0.7 Not Available [address] [place], [address] 07/04/2023 06:19:05 07/04/1907/04/2023 COMPL ETE BLOOD COUNT W/DIF F immature grans % 0.2 Not Available [address] [place], [address] 07/04/2023 06:19:05 07/04/1907/04/2023 COMPL ETE BLOOD COUNT W/DIF F nucleated RBC 0.0 % 0.0-0. 3 normal Not Available [address] [place], [address] 07/04/2023 06:19:05 07/04/1907/04/2023 COMPL ETE BLOOD COUNT W/DIF F absolute neutrophil count 5.15 10_3/ uL 1.2-6. 7 normal Not Available [address] [place], [address] 07/04/2023 06:19:05 07/04/1907/04/2023 COMPL ETE BLOOD COUNT W/DIF F absolute lymphocyte count 2.78 10_3/ uL 1.2-3. 4 normal Not Available [address] [place], [address] 07/04/2023 06:19:05 07/04/19 24 07/04/2023 COMPL ETE BLOOD COUNT W/DIF F absolute monocyte count 0.79 10_3/ uL 0.1-0. 8 normal Not Available [address] [place], [address] 07/04/2023 06:19:05 07/04/19 24 07/04/2023 COMPL ETE BLOOD COUNT W/DIF F absolute eosinophil count 0.11 10_3/ uL 0.0-0. 7 normal Not Available [address] [place], [address] 07/04/2023 06:19:05 07/04/19 24 07/04/2023 COMPL ETE BLOOD COUNT W/DIF F absolute basophil count 0.06 10_3/ uL 0.0-0. 2 normal Not Available [address] [place], [address] 07/04/2023 06:19:05 07/04/19 24 07/04/2023 BASIC METAB OLIC PANEL calcium 9.4 mg/dL 8.5-10 .1 normal Not Available [address] [place], [address] 07/04/2023 06:31:05 07/04/19 24 07/04/2023 BASIC METAB OLIC PANEL glucose 152 mg/dL 74-106 high Not Available Medardo tarango [address] [place], [address] 07/04/2023 06:31:05 07/04/19 24 07/04/2023 BASIC METAB OLIC PANEL BUN 31 mg/dL 7-18 high Not Available Medardo tarango [address] [place], [address] 07/04/2023 06:31:05 07/04/19 24 07/04/2023 BASIC METAB OLIC PANEL creatinine 0.8 mg/dL 0.55-1 .02 normal Not Available [address] [place], [address] 07/04/2023 06:31:05 07/04/19 24 07/04/2023 BASIC METAB OLIC PANEL estimated GFR 82.74 mL/min /1.73m 2 The eGFR is calcu lated from a serum creat inine using the CKD-E PI 2020 equat ion. Other varia bles requi red for the equat ion are gende r and age; this equat ion does not inclu de a race coeff icien t. This equat ion has simil ar overa ll perfo rmanc e to previ ous equat ions excep t value s may diffe r, in parti cular , in patie nts with highe r value s of eGFR and young er-ag ed adult s. Not Available [address] [place], [address] 07/04/2023 06:31:05 07/04/1907/04/2023 BASIC METAB OLIC PANEL sodium 140 mmol/ L 136-14 5 normal Not Available [address] [place], [address] 07/04/2023 06:31:05 07/04/19 24 07/04/2023 BASIC METAB OLIC PANEL potassium 3.8 mmol/ L 3.5-5. 1 normal Not Available [address] [place], [address] 07/04/2023 06:31:05 07/04/19 24 07/04/2023 BASIC METAB OLIC PANEL chloride 104 mmol/ L 98-107 normal Not Available [address] [place], [address] 07/04/2023 06:31:05 07/04/19 24 07/04/2023 BASIC METAB OLIC PANEL CO2 29.8 mmol/ L 21.0-3 2.0 normal Not Available [address] [place], [address] 07/04/2023 06:31:05 07/04/19 24 07/04/2023 BASIC METAB OLIC PANEL anion gap 6.2 mmol/ L 3-11 normal Not Available [address] [place], [address] 07/04/2023 06:31:05 07/04/19 24 07/04/2023 MAGNE SIUM magnesium 1.9 mg/dL 1.8-2. 4 normal Not Available [address] [place], [address] 07/04/2023 06:31:05 07/04/19 24 07/04/2023 CARDI AC TROPO MONI I cardiac troponin I 162 NG/L < or =60 panic high Criti tonya value TROPO MONI repor gabbie to and readb ack from DANNA BYRD RN M/S at 0641 07/04 by LAB.M ARC An eleva gabbie/a bnorm al tropo moni value above 60ng/ L (whic h is the 99th perce ntile cutof f of a aminta l, healt hy refer ence popul ation ) must be inter prete d in the delfina xt of the clini tonya prese ntati on. Clini tonya and labor atory corre latio n is requi red to evalu ate for an acute myoca rdial infar ction . The resul ts of this assay can be false ly lower ed due to the consu mptio n of Bioti n (Paola min B7). Not Available [address] [place], [address] 07/04/2023 06:45:04 07/05/19 24 07/05/2023 LAB ADD ON TEST lab add on test DONE Not Available [address] [place], [address] 07/05/2023 09:53:08 07/05/19 24 07/05/2023 C-MICHELINE CTIVE PROTE IN C-reactive protein < 0.50 mg/dL <or=0. 5 Not Available [address] [facility] [place], [address] 07/05/2023 11:32:23 07/05/19 24 07/05/2023 PROCA LCITO MONI procalcitoni n < 0.1 NG/mL PCT Value (ng/m L): Inter preta tion: <0.5 Low risk for sever e sepsi s/sep tic shock >or=0 .5 and <2.0 Sever e sepsi s/sep tic shock is possi ble >or=2 .0 High risk for sever e sepsi s/sep tic shock Note: Decis ions regar ding antib iotic thera py shoul d NOT be based solel y on proca lcito moni real ntrat ions. A proca lcito moni real ntrat ion of <0.5 ng/mL does not entir joe exclu de syste chavo bacte rial infec tion/ sepsi s. Corre latio n with the full clini tonya, imagi ng, and labor atory findi ngs is requi red for a compl ete sepsi s evalu ation . Addit ional ly, eleva gabbie proca lcito moni real ntrat ions may not alway s be relat ed to syste chavo bacte rial infec tion and can be seen in the setti ng of sever e amador , major traum a, major surge ry, pancr eatit is, bowel ische contreras, asept ic syste chavo shock (anap hylac tic, hemor rhagi c, or cardi ogeni c), renal insuf ficie ncy, medul stew thyro id cance r, small cell lung cance r, drugs stimu latin g pro-i nflam mator y cytok elis, invas yissel funga l infec tions , Kawas dean disea se, among other cause s. Not Available [address] [place], [address] 07/05/2023 11:57:31 07/30/19 24 07/30/2023 hemog lobin A1C, finge rstic k hemoglobin A1C 6.4 % <5.7 Not Available [address], [address], 07/30/2023 11:23:08 12/03/19 24 12/03/2023 VAGIN AL PATHO GEN SCREE N vaginal pathogen screen Vagin al Patho gen Scree n EZEKIEL DA NEGAT YISSEL GARDN ERELL A NEGAT YISSEL TRICH OMONA S NEGAT YISSEL Not Available [facility] (Registration ) [address] [place] [address] [place], [address], 12/03/2023 19:23:28 12/03/19 24 12/03/2023 hemog lobin A1C, finge rstic k hemoglobin A1C 5.6 % <5.7 Not Available [facility] [address], [place], [address], 12/03/2023 11:17:58 07/02/19 24 07/02/2023 elect agnes jones am EKG NONI Rodríguez NAME: Arley Norman UNIT #: [id number] [facility] ER: Moustapha Baker M.D. ACCOUN T #: [id number] PRIMAR Y CARE PROVID ER: JADEN STILL,ABB Y DATE/T JULI OF SERVIC E: 1126 : 1960 PERFOR HEREBRT LOCATI ON: ER ------ ------ --- APPROV ED REPORT ------ ------ -- Exam: Restin g ECG Reason for Exam: sob Patiela t Locati on: E HR:113 bpm ECG Measur ements Heart Rate 113 AXIS NJ 143 P 64 QRSd 89 QRS 84 [...] ------ - E-Sign Date: E-Sign Time: 1135 [id number] [facility] [address] [facility] [place], [address] 07/02/2023 12:23:00 07/02/19 24 07/02/2023 elect agnes jones am EKG NONI Rodríguez NAME: Arley Norman anitra Orlando UNIT #: [id number] [facility] ER: Homer rodríguez,Moustapha JUDD T #: [id number] PRIMAR Y [facility] ER: JADEN STILL,SHE Y DATE/T JULI OF SERVIC E: 1127 : 1960 PERFOR HERBERT LOCATI ON: ER ------ ------ --- APPROV ED REPORT ------ ------ -- Exam: Restin g ECG Reason for Exam: sob Sayraela rodríguez Locati on: E HR:113 bpm ECG Measur ements Heart Rate 113 AXIS NJ 143 P 64 QRSd 89 QRS 84 [...] APPROV ED REPORT ------ ------ -- Exam: Calli sandoval ECG Reason for Exam: sob Noni rodríguez Locati on: E HR:113 bpm ECG Measur ements Heart Rate 113 AXIS NJ 143 P 64 QRSd 89 QRS 84 [...] s new. No acute injury patter n. I have review ed and interp reted ECG and agree with kristine cartwright interp retati on. Electr onical ly signed by: [id number] Cosign ed by: [email or web address] [facility] [address] [place] [address] [place], [address] 07/02/2023 12:23:00 07/02/19 24 07/02/2023 x-ray imagi ng repor t Patien t Name: Arley Norman Unit #: [id number] Loc: ER Orderi ng [facility] er: Moustapha Baker M.D. [place] t #: [id number] Status : REG ER Primar [...] REPOSI TORY: RADIAT ION DOSE DELIVE RED: Erin smith By: Moustapha Baker M.D. CC: ------ ------ [...] this report in error, please notify us immjyotsna vicente at and return the origin al report to us at the addres s above. Thank- you. [facility] [address] [facility] [place], [address] 07/02/2023 13:39:28 07/02/19 24 07/02/2023 elect agnes jones am EKG PATIELA T NAME: Arley Norman UNIT #: [id number] ORDERI NG PROVID ER: Moustapha Baker M.D. ACCOUN T #: [id number] PRIMAR Y CARE PROVID ER: SHE STANLEY NP Y DATE/T JULI OF SERVIC E: 1608 : 1960 PERFOR HERBERT LOCATI ON: ER ------ ------ --- APPROV ED REPORT ------ ------ -- Exam: Restin g ECG Reason for Exam: trop + Noni t Locati on: E HR:109 bpm ECG Measur ements Heart Rate 109 AXIS NJ 159 P 69 QRSd 76 QRS 84 [...] in aVL. Compar ed to prior dated earlrico r today no acute change s. T wave flatte oly in aVL is persis tent. Low voltag e is also persis tent. ------ ------ ------ ------ ------ ------ ------ ------ ------ ------ ------ ------ ------ ------ ------ ------ ---- ------ - E-Sign Date: E-Sign Time: 1655 [facility] [address] [place], [address] 07/03/2023 06:42:41 07/02/19 24 07/02/2023 histo ry physi tonya exami natio n HISTOR Y PHYSIC AL EXAMIN ATION PATIEN T NAME: Arley Norman UNIT #: [id number] ADMITT ING PROVID ER: Erin Ward M.D. ACCOUN T #: [id number] PRIMAR Y CARE PROVID ER: JADEN STILL,ABB [...] a cardia c cathet erizat ion at [facility] when she first presen gabbie with the [...] al floor. 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 On repeat , it was 434. [facility] cardio logy was consul gabbie and felt that this is likely demand ischem ia and did not recomm end hepari nizati on or plavix . The patien t did get aspiri n in the ED. Hospit alist admiss ion to the ICU was reques gabbie; eliseo r, upon arriva l to the ICU, the patien t is off of BiPAP and is doing better . She is being downgr aded to the medica l surgic al floor. Review of System s All system s review ed are unrema rkable except as noted in HPI and below PFSH All Active Proble ms (Updat ed @ 20:30 by Erin Ward MD) Discha rge planni ng issues (Acute [...] y (Updat ed @ 20:30 by Erin Ward MD) Esopha geal strict ure Chroni c systol ic (conge stive) heart failur e Aspira tion pneumo manisha Stress -induc ed cardio myopat hy acute onset manage d at [facility] 08/30 presso rs, EF 25%, has since [...] @ 05:25 by Richard suggs) Smokin g/Toba account consultant Use Status : Never Smokin g risk assess ment perfor med?: Yes Alcoho l Intake : never Drug use: Never Substa nce use type: does not use Househ old member s: spouse Housin g: apartm ent Number of Childr en: 2 curren t occupa tion: Caregi elvie What is your relati onship status ?: marrie luis Panel score (0-1 are the most social [...] (Humul in N NPH U-100 Insuli n ElyikPe n) ibupro fen 100 mg/5 mL oral [...] tube Q8H PRN Histor y Exam Narrat yissel Exam Narrat yissel: Tony price: A pleasa nt middle -aged Caucas laureen female on 1L of O2, coughi ng incess antly, A Ox3, AMBLER Neurol ogical : A Ox3, tremul ous, AMBLER, no focal defici ts Psychi atric: Approp [...] % 74.3 Lympho cytes % 10.8 Monocy marianela % 5.3 Eosino phils % 8.6 Basoph ils % 0.7 Nuclea gabbie RBC % 0.0 Absolu te Neutro phils 10.99 H Absolu te Lympho cytes 1.60 Absolu te Monocy marianela 0.78 Absolu te Eosino phils 1.27 H [...] 203 H* 434 H* COVID- 19 Source Nasjd thorpex SARS-C oV-2 (PCR) Negati ve Influe nza [...] prepar ing to see the patien t(eg.r uchew tests) , obtain ing and/or review ing separa leeann smith hiisto ry, orderi ng medica tions, tests, proced ures, referr ing, commun icajames g with other health care profes sional s, indepe ntentl y interp reting result s, counse ling the patien t and care [facility] [place] cc: JADEN STILL,SHE Y ------ ------ ------ ------ ------ ------ ------ ------ ------ ------ ------ --- Dictat ed by: FAUSTO WARD MD Dictat ed: Time: 162 6 Date: 2030 Date: Date: Transc ribed Date: Transc ribed Time: 1625 By: SYED This is privil eged, confid [...] at the addres s above. Thank you. [facility] [address], [place], [address] 07/03/2023 06:43:46 07/02/19 24 07/02/2023 ED visit note ED Visit Note PATIEN T NAME: Arley Norman UNIT #: [id number] ADMITT ING PROVID ER: Moustapha Baker M.D. ACCOUN T #: [id number] PRIMAR Y CARE PROVID ER: SHE STANLEY NP DATE OF ADMIT: 0 4 : 1960 Discha rge Plan Dispos ition Patien t Dispos ition: Admit to [facility] Discha rge Detail s Clinic al Impres clotilde: Acute respir atory failur e with hypoxi a and hyperc arbia, Myocar dial injury , COPD with acute exacer bation Admit Date/T juli: 16:21 Admit Provid er: Erin Ward Attend ing Provid er: Erin Ward Primar y Care Provid er: Chris Stanley ED Provid er: Moustapha Baker Data Dischdarrius howard Date/T juli-TO BE ENTERE D AT DEPART URE: 17:38 HPI Genera l Date/T juli Provid er Initia gabbie middletontio n: 11:28 . HPI Narrat yissel: MDM This is a wheezi ng and [...] manisha. I consid ered PE and DVT howeve r noin rodríguez has no leg pain and no [...] hypote nsive nor a dialys is patiela t to sugges t tampon alvin. No histor y of emesis to sugges t esopha geal ruptur e. No tearin g qualit y to sugges t aortic dissec tion. Given increa sed oxygen use antici fofana noni rordíguez will requir e hospit alizat ion. No [...] Basic metabo lic panel showin g no DEAN and no anion gap normal bicarb dorothea?n [...] 324mg. 1:45 PM I spoke with Dr. Ward who reques gabbie repeat venous gas and tropon in and rescue BiPAP. 3:03 PM RT placed pt on BiPAP and she pulled good tidal volume s. Repeat venous blood gas showin g resolv ed acidem ia and improv ed hyperc arbia. Tropon in nearly double d. I spoke with Dr. Ward who reques gabbie cards consul [facility]. 4pm I spoke to Dr. Aiden rizo from cards at [facility]. He was not concer david for ACS and felt that patiela t's presen tation was more consis tent w/smiley [...] Low voltag e is also persis tent. Patien t accept ed to the hospit alist team. 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 Ward Treatm ent/in terven tions consid ered: N/A Respon se to therap ies provid ed: Improv ed sympto ms follow ing rescue BiPAP HPI This is a 63-yea r-old female with histor y of reacti ve airway diseas e arrive d to the emerge ncy depart ment via EMS in the settin g of cough shortn ess of breath and wheezi ng. Noni rodríguez report renay was treate d as an [...] and person al hygien e are approp riate. Relate d Data Home Medica tions Medica tion Instru ctions Record ed Confir med sucral fate 1 gram tablet 1 g PO QID folic acid 1 mg tablet 1 mg PO DAILY #0 tabs atorva statin 80 mg tablet 80 mg PO DAILY empagl iflozi n 10 mg tablet 10 mg PO DAILY (Jarsowmya ancrowan) gabape ntin 300 mg capsul e 900 [...] ms (Updat ed @ 20:30 by Erin Ward MD) Discha rge planni ng issues (Acute [...] y (Updat ed @ 20:30 by Erin Ward MD) Esopha geal strict ure Chroni c systol ic (conge stive) heart failur e Aspira tion pneumo manisha Stress -induc ed cardio myopat hy acute onset manage d at [facility] 08/30 presso rs, EF 25%, has since [...] @ 05:25 by Richard suggs) Smokin g/Toba account consultant Use Status : Never Smokin g risk [...] in your relati onship ?: Yes cc: SHE STANLEY NP Y ------ ------ ------ ------ ------ ------ [...] at the addres s above. Thank you. [email or web address] [facility] [address], [place], [address] 07/03/2023 06:43:47 07/03/19 24 07/03/2023 progr ess note PROGRE SS NOTE NONI Rodríguez NAME: Arley Norman UNIT #: [id number] ADMITT ING PROVID ER: Erin Ward M.D. ACCNEIL T #: [id number] PRIMAR Y CARE PROVID ER: JADEN STILLSHE Beebe DATE OF ADMIT: 0 4 : 1960 [...] diseas e and bronch ioliti s. The noni t now states that COVID- 19 was [...] antitu ssives . Sputum sample with normal travis. Wean O2 as tolera gabbie. Check exerci [...] a cardia c cathet erizat ion at [facility] when she first presen gabbie with the [...] al histor y since last seen: Ms Hutton dsgracy is satura ting 92% on RA. She is normal ly on 2L of O2 at night. She wants to go home, but unders tands that she is still coughi ng a lot and is not quite ready. She is very wheezy as well. Denies dizzin ess, CP, n/v. Exam Narrat yissel Exam Narrat yissel: Genera l: A pleasa nt middle -aged Caucas laureen female on RA, coughi ng is better , A Ox3, AMBLER HEENT: EOMI, MMM Cardio vascul ar: RRR, no m/r/g Lungs: expira tory wheezi ng B, a little better Gastro intest inal: soft, nonten doreen, nondis tended ; gastro stomy tube in place Extrem ities: trace edema, no clubbi ng/cya nosis Object yissel Last Vital Signs Temp 36.5 C 14:59 Pulse 99 H 14:59 Resp 19 14:59 BP 100/61 14:59 Pulse Ox 89 L 15:40 Labora tory Result s - last 24 hr 17:32 20:30 Unknow n WBC RBC Hgb Hct MCV MCH MCHC RDW Plt Count MPV Immatu re Gran % Neutro phils % Lympho cytes % Monocy marianela % Eosino phils % Basoph ils % Nuclea gabbie RBC % Absolu te Neutro phils Absolu te Lympho cytes Absolu te Monocy marianela Absolu te Eosino phils Absolu te Basoph [...] % 74.2 Lympho cytes % 16.6 Monocy marianela % 8.0 Eosino phils % 0.3 Basoph ils % 0.5 Nuclea gabbie RBC % 0.0 Absolu te Neutro phils 8.30 H Absolu te Lympho cytes 1.86 Absolu te Monocy marianela 0.90 H Absolu te Eosino phils 0.03 [...] obtain ing and/or review ing separa leeann mcneillisto ry, orderi ng medica tions, tests, proced ures, referr ing, commun icatin g with other health care profes sional s, indepe ntentl y interp reting result s, counse ling the patien t and care [facility] [place] cc: ------ ------ ------ ------ ------ ------ ------ ------ ------ ------ ------ --- Dictat ed by: FAUSTO WARD MD Dictat ed: Time: 162 5 Date: 1648 Date: Date: Transc ribed Date: Transc ribed Time: 1624 By: SYED This is privil eged, confid ential inform ation, intend ed only for the provid er named. Any use or distri bution by any person other than this [facility] er is strict ly prohib ited. If you receiv e this report in error, please notify us immedi ately at and return the origin al report to us at the addres s above. Thank you. [email or web address] [address] [place], [address] 07/06/2023 06:41:39 07/04/19 24 07/04/2023 progr ess note PROGRE SS NOTE PATIEN T NAME: Arley Norman UNIT #: [id number] ADMITT ING PROVID ER: Erin Ward M.D. 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 Discus sed with cardio logy at [facility]. When the patien t was origin ally [...] Wean predni sone. Sputum sample with normal travis. Encour age pulmon giovanny toilet . Needs [...] a calciu m score of 0 at [facility]. The EF did improv e on the [...] histor y since last seen: Benigno peralta, develo ped flipp ed T-wave s on the teleme [...] downtr end. Case was discus sed with [facility] cardio logy, who recomm ended keepin g the patien t benigno peralta for furthe r monito ring and an echoca rdiogr am in am. Her husban d (Yazan yuan) is upset by this, but Bridge t unders tands and is agreea ble. I also discus sed this with Richard, the son, per Campos 's reques t. Exam Narrat yissel Exam Narrat yissel: Genera l: A pleasa nt middle -aged Caucas laureen female on RA, not coughi ng, A Ox3, sittin g up comfor tably in a chair HEENT: EOMI, MMM Cardio vascul ar: RRR, no m/r/g Lungs: CTAB Gastro intest inal: soft, nonten doreen, nondis tended ; gastro stomy tube in place Extrem ities: trace edema, no clubbi ng/cya nosis Object yissel Last Vital Signs Temp 37.5 C 11:07 [...] % 57.8 Lympho cytes % 31.2 Monocy marianela % 8.9 Eosino phils % 1.2 Basoph ils % 0.7 Nuclea gabbie RBC % 0.0 Absolu te Neutro phils 5.15 Absolu te Lympho cytes 2.78 Absolu te Monocy marianela 0.79 Absolu te Eosino phils 0.11 Absolu [...] in I 192 H* 162 H* Object yissel Narrat yissel Object yissel Narrat yissel: EKG 07:23: HR 72, sienna latera l T wave invers ions, unchan ged from 02:34 and 5:21 am, but new from EKG in the ED on 4. Time Spent with Patien t Time Spent with Patien t: 35-49 minute s Time was spent: prepar ing to see the patien t(eg.r eview tests) , obtain ing and/or review ing separa leeann mcneillisto ry, orderi ng medica tions, tests, proced ures, referr ing, commun aline g with other health care profes sistanislaw s, indepe ntentl y interp reting result s, counse ling the patien t and care [facility] [place] cc: ------ ------ ------ ------ ------ ------ ------ ------ ------ ------ ------ --- Dictat ed by: FAUSTO WARD MD Dictat ed: Time: 142 8 Date: 1552 Date: Date: Transc ribed Date: Transc ribed Time: 1428 By: SYED This is privil eged, confid [...] at the addres s above. Thank you. [email or web address] [address], [place], [address] 07/06/2023 06:41:39 07/04/19 24 07/03/2023 initi al care manag ement asses s Initia l Care Manage ment Assess PATIEN T NAME: Arley Norman UNIT #: [id number] ADMITT ING PROVID ER: Ahmet Hensley #: [id number] PRIMAR Y CARE PROVID ER: JADEN EATING DISORDER SPECIALIST,ABB Y DATE OF ADMIT: 0 4 : 1960 Date of servic e: Time of Servic e: 09:49 Care Manage ment Initia l Assmt Initia l Assess ment REASON FOR HOSPIT ALIZAT ION:: Bronci olitis , Acute Hypoxi c Hyperc apnic Respir atory Failur e PREVIO US FUNCTI ONAL STATUS /SOCIA L/FAMI LY SUPPOR TS:: Binta rodríguez reside s in [facility] with her jojo Gasca . 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 She and her jojo smith have two adult sons, Richard and Carlton, one of whom [facility] and is suppor tive of the couple . Binta rodríguez is indepe ndent with her ADLs at [facility]. CHUY Rodríguez FUNCTI ONAL STATUS :: Binta rodríguez was lying in bed, jojo smith at bedsid e. Jojo smith, Campos strugg ling to regula te emotio ns, weepin g and janina abreu Binta rodríguez will return home after ECHO preet cartwright on Wednesday , per . JULIANA Kent DIRECT AGATA:: None on file. Has noni rodríguez been provid ed with info about the portal /API?: Yes Did the noni rodríguez sign up for the portal ?: Yes CODE STATUS :: Full Code INSURA NCE COVERA GE / FINANC IAL ISSUES :: NGOZI Rodríguez HOME/C OMMUNI TY SERVIC ES/EQU IPMENT [...] e by her jojo smith. PLAN:: Janina Judd t will return home once medica lindsay smith. Her jojo smith will drive her home via privat e vehicl e when ready. She will follow up with her PCP and discha rge plan of care. CM will contin ue to follow . 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 Thank you. [email or web address] [facility] [address], [place], [address] 07/06/2023 06:41:40 07/05/1907/05/2023 elect agnes jones am EKG PATIELA T NAME: Arley Norman UNIT #: [id number] ORDERI NG PROVID ER: Surinder suggs,Da vid ACCOUN T #: [id number] PRIMAR Y CARE PROVID ER: JADEN STILL,ABB Y DATE/T JULI OF SERVIC E: 0723 : 1960 PERFOR HERBERT LOCATI ON: MS ------ ------ --- APPROV ED REPORT ------ ------ -- Exam: Restin g ECG Reason for Exam: previo us EKG was done withou t V2 Patien t Locati on: I HR:72 bpm ECG Measur ements Heart Rate 72 AXIS NJ 150 P 48 QRSd 80 QRS 88 [...] ------ - E-Sign Date: E-Sign Time: 820 [facility] [address] [place], [address] 07/06/2023 06:41:38 07/05/19 24 07/05/2023 elect agnes jones am EKG PATIEN T NAME: Arley Norman UNIT #: [id number] ORDERI NG [facility] ER: Vernon Dick ACCOUN T #: [id number] PRIMAR Y CARE PROVID ER: JADEN STILL,SHE Y DATE/T JULI OF [employer] E: 51 : 1960 PERFOR HERBERT LOCATI ON: MS ------ ------ --- APPROV ED REPORT ------ ------ -- Exam: Restin g ECG Reason for Exam: Latera l ischem ia with hypoxe contreras rodríguez Locati on: I HR:69 bpm ECG Measur ements Heart Rate 69 AXIS NJ 156 P 60 QRSd 73 QRS 85 [...] Prolon ged QT interv al...Q Tc >500mS Leslye g lead(s ): V2 ------ ------ ------ ------ ------ ------ ------ ------ ------ ------ ------ ------ ------ ------ ------ ------ ---- ------ - E-Sign Date: E-Sign Time: 08 [email or web address] [facility] [address], [address] 07/06/2023 06:41:37 07/05/19 24 07/05/2023 caterina jones am EKG NONI T NAME: Arley oNrman UNIT #: [id number] ORDERI NG PROVID ER: Vernon Dick ACCOUN T #: [id number] PRIMAR Y CARE PROVID ER: SHE STANLEY NP Y DATE/T JULI OF SERVIC E: 233 : 1960 RADHA HERBERT LOCATI ON: MS ------ ------ --- APPROV ED REPORT ------ ------ -- Exam: Restin g ECG Reason for Exam: t wave change s Patiela t Locati on: I HR:81 bpm ECG Measur ements Heart Rate 81 AXIS NJ 143 P 56 QRSd 87 QRS 92 [...] ------ - E-Sign Date: E-Sign Time: 820 [facility] [address] [place] [address], [address] 07/06/2023 06:41:36 07/05/19 24 07/02/2023 elect agnes jones am EKG NONI Rodríguez NAME: Arley Norman UNIT #: [id number] [facility] [facility] ER: Moustapha Baker M.D. ACCOUN T #: [id number] PRIMAR Y CARE [facility] ER: JADEN STILL,SHE Y DATE/T JULI OF SERVIC E: 1609 : 1960 RADHA HERBERT LOCATI ON: MS ------ ------ --- APPROV ED REPORT ------ ------ -- Exam: Restin g ECG Reason for Exam: trop + Noni rodríguez Locati on: E HR:109 bpm ECG Measur ements Heart Rate 109 AXIS NJ 159 P 69 QRSd 76 QRS 84 [...] E-Sign Time: 1656 ------ ------ --- ADDEND [facility] ED REPORT ------ ------ -- Exam: Restin g ECG Reason for Exam: trop + Patien t Locati on: E HR:109 bpm ECG Measur ements Heart Rate 109 AXIS NJ 159 P 69 QRSd 76 QRS 84 [...] retati on. Electr onical ly signed by: [id number] Cosign ed by: [email or web address] [facility] [address] [place], [address] 07/06/2023 06:41:41 07/05/1907/05/2023 ultra sound imagi ng repor t Noni rodríguez Name: Arley Norman Unit #: [id number] Loc: MS Jerman contreras Provid er: Erin Ward M.D. Accoun t #: [id number] Status : ADM IN [facility] er: Chris Stanley Date of Exam: Sex: [...] (TR) 23.1 mmHg Ordere d By: Erin Ward M.D. CC: ------ ------ ------ ------ ------ [...] at the addres s above. Thank- you. [email or web address] [facility] [address], [place], [address] 07/06/2023 06:41:35 07/05/19 24 07/05/2023 cardi ology consu ltati on CARDIO LOGY CONSUL DEVIKA Rodríguez NAME: Arley Norman UNIT #: [id number] ORDERI NG PROVID ER: ACCNEIL T #: [id number] PRIMAR Y CARE PROVID ER: JADEN STILL,ABB Y DATE/T JULI OF SERVIC E: : 1960 Date of servic e: 02/26/ 24 Time of Servic e: 12:29 Assess ment [...] y of Truong rodríguez Illnes s Narrat yissel: This is a 63-yea r-old woman who presen gabbie to the hospit al over the with diffic ulty breath ing. She has [...] abnorm ality Review of System s Narrat yissel: Noni rodríguez was not interv iewed or [...] ) Erosiv e esopha gitis (Acute ) Tiherno t's esopha jayna determ ined by endosc [...] myopat hy acute onset manage d at [facility] 08/30 presso rs, EF 25%, has since [...] 12:35 by Chiquis Leblanc MD) Smokin g/Toba account consultant Use Status : Never Smokin g risk [...] your relati onship ?: Yes Exam Narrat yissel Exam Narrat yissel: Patiela t was not examin ed Result s Last Vital Signs Temp 36.6 C 11:21 Pulse 61 11:21 Resp 16 11:21 BP 93/58 L 11:21 Pulse Ox 93 11:21 Labs 05:48 05:48 Labs: Labora tory Result s - last 24 hr 18:28 10:31 Unknow n C-Reac tive Protei n < 0.50 Procal citoni n < 0.1 Urine Legion mikala Ag Negati ve Add-On Test Reques t DONE CC: ------ ------ ------ ------ ------ ------ ------ ------ ------ ------ ------ ------ ------ ------ ------ ------ ---- -- Dictat ed by: RUKHSANA LEBLANC MD Dictat ed:: 4 1229 1237 Transc ribed Date: Transc ribed Time: 1229 By: VIRAJ This is privil eged, confid ential inform ation, intend ed only for the [facility] er named. Any use or distri bution by any person other than this [facility] er is strict ly prohib ited. If you receiv e this report in error, please notify us immedi ately at and return the origin al report to us at the addres s above. Thank you. 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 Noni rodríguez/Fami ly Educat ion Needs: Review discha rge [...] at the addres s above. Thank you. [email or web address] [address], [place], [address] 07/06/2023 06:41:33 07/06/19 24 07/05/2023 disch arge summa ry DISCHA RGE SUMMAR Y PATIEN T NAME: Arley Norman UNIT #: [id number] ADMITT ING PROVID ER: CHIP MARTINEZ MD, ALEXI CLAIRE ACCNEIL T #: [id number] PRIMAR Y CARE PROVID ER: JADEN [...] per echo 3 who [facility] ed to [facility] w/ one week of cough [...] and doxycy jaramillo. Sputum grew normal oral travis. Steroi ds were begun. She improv e [...] hypoxe contreras and hyperc arbia and the noni t is exhibi ting [employer] cardio myopat hy. Eliseo r, noin rodríguez should have a follow up stress MPI study. The patien t's jojo cartwright that he will call the patien t's cardio logist , Dr. Hernandez at [facility] and get her an expedi gabbie outpat ient follow up. (2) Myocar dial injury : Status : Acute Discha rge Plan Dispos ition Patien t Dispos ition: Home Condit ion: Improv ing Discha rge Hailey s Reason For Visit: Bronch ioliti s,Acut e Hypoxi c Hyperc apnic Respir ator Admit Date/T juli: 16:21 Admit Provid er: Erin Ward Attend ing Provid er: Erin Ward Primar y Care Provid er: JadenChris Home Meds and New Rx's Prescr iption [...] cream 1 applic TOPICA L TID PRN Patien t Commen ts: APPLY A SMALL AMOUNT TO AFFECT ED AREA(S ) ON BUTTOC KS THREE TIMES A DAY NEEDED melato moni 3 mg tablet 9 mg feedin g tube HS Patien t Commen ts: TAKE THREE TABLET S VIA G-TUBE EVERY NIGHT DIRECT ED insuli n glargi ne [Lantu s Solost ar U-100 Insuli n] 100 unit/m L (3 mL) insuli n pen 10 unit SUBCUT QPM Pati t Commen ts: INJECT 10 UNITS UNDER THE SKIN NIGHTL Y DIRECT ED ondans etron HCl 4 mg tablet 8 mg feedin g tube Q8H PRN Patien t Commen ts: TAKE ONE TABLET VIA [...] . You should follow up w/ your [facility] cardio logist and discus s having a [...] n of hospit al visit Status at Discha rge Functi onal status at discha rge: uses cane/w alker Overal l status at discha rge: patien t is progre ssing back to baseli ne Mental Status : mental status grossl y normal Speech and Moveme nt: speech and moveme nt normal Mood: congru ent mood Affect : normal affect Qualit y:SDOH Health Relate d Social Needs: No Data to Displa y Exam Narrat yissel Exam Narrat yissel: Middle -aged white female sittin g up in her chair talkin g [...] Fracti on of Inspir ed Oxygen (FIO2) 24 07:33 Pain Level 0 11:21 Commen t [...] e Commod e Data Comple gabbie and Maritza g Labs on day of discha rge: Labs from last 24 hours Unknow n 10:31 18:28 C-Reac tive Protei n < 0.50 Procal citoni n < 0.1 Urine Legion mikala Ag Negati ve Add-On Test Reques t DONE PFS All Active Proble ms (Revie wed @ [...] Pneumo nitis (Acute ) Aspira tion pneumo mnaisha (Acute ) Gastro stomy tube obstru ction [...] myopat hy acute onset manage d at [facility] 08/30 presso rs, EF 25%, has since [...] 15:32 by Rory martinez MD) Smokin g/Toba account consultant Use Status : Never Smokin g risk [...] patien t (And patien t's son and husban d) and care [facility] [place] CC: ------ ------ ------ ------ ------ ------ ------ ------ ------ ------ ------ --- Dictat ed by: CHIP MARTINEZ MD, [facility] Dictat ed: Time: 153 Date: 07/06 Time: 180 Transc ribed Date: Transc ribed Time: 153 By: [facility] This is privil eged, confid ential inform ation, intend ed only for the provid er named. Any use or distri bution by any person other than this provid er is strict ly prohib ited. If you receiv e this report in error, please notify us immjyotsna vicente at [phone] and return the origin al report to us at the addres s above. Thank you. [email or web address] [address], [place], [address] 07/07/2023 10:42:01/24/2001/24/2024 x-ray imagi ng repor t Patien t Name: Arley Norman Unit #: [id number] Loc: DIORS Orderi ng Provid er: Bhargav Syed M.D. Accoun t #: [id number] Status : PRE CLI Primar y Care Provid er: Chris Stanley Date of Exam: Sex: F Admiss ion Date: : 1960 Age: 63 Exam(s ) XR HIP LT AP LAT ONLY EXAM: XR HIP LT AP LAT ONLY CLINIC AL HISTOR Y: ANNUAL F/U L KYUNG. TECHNI QUE: 2D digita l imagin g was perfor med. COMPAR ASHLEY: CR XR HIP LT COMPLE TE AP PELVIS from 2022 FINDIN GS: Two views Stable positi on alignm ent of the compon ents of the prosth esis. No fractu re or loosen ing eviden t. IMPRES CLOTILDE: Stable satisf actory appear ance DATA REPOSI TORY: RADIAT ION DOSE DELIVE RED: Ordere d By: Bhargav Syed M.D. CC: ------ ------ ------ ------ ------ ------ ------ ------ ------ ------ ------ ------ - Dictat ed By: Rober Stanton M.D. 1139 1139 Transc ribed By: Maximino MARTE,Tawanna jose 1139 This is privil eged, confid ential inform ation intend ed only for the provid er named. Any use or distri bution by any person other than this provid er is strict ly prohib ited. If you receiv e this report in error, please notify us immedi ately at [phone] and return the origin al report to us at the addres s above. Thank- you. INTERFACE [address], [place], [address] 01/24/2024 11:53:52 01/24/20 24 04/22/2021 imagi ng/di agnos tic resul t No observ ation record ed. Not Available 01/23 17:43:04 01/24/20 24 04/22/2021 imagi ng/di agnos tic resul t No observ ation record ed. Not Available 01/23 17:43:06 01/24/20 24 02/18/2022 imagi ng/di agnos tic resul t No observ ation record ed. Not Available 01/23 17:43:33 01/24/20 24 04/04/2023 imagi ng/di agnos tic resul t No observ ation record ed. Not Available 01/23 17:43:58 01/24/20 24 01/31/2023 imagi ng/di agnos tic resul t No observ ation record ed. Not Available 01/23 17:43:59 01/24/20 24 02/26/2023 imagi ng/di agnos tic resul t No observ ation record ed. Not Available 01/23 17:44:00 01/24/20 24 08/08/2022 imagi ng/di agnos tic resul t No observ ation record ed. Not Available 01/23 17:44:01 01/24/20 24 08/08/2022 imagi ng/di agnos tic resul t No observ ation record ed. Not Available 01/23 17:44:02 01/24/20 24 08/08/2022 imagi ng/di agnos tic resul t No observ ation record ed. Not Available 01/23 17:44:04 01/24/20 24 08/08/2022 imagi ng/di agnos tic resul t No observ ation record ed. Not Available 01/23 17:44:04 01/24/20 24 08/14/2022 imagi ng/di agnos tic resul t No observ ation record ed. Not Available 01/23 17:44:05 01/24/20 24 08/14/2022 imagi ng/di agnos tic resul t No observ ation record ed. Not Available 01/23 17:44:06 01/24/20 24 09/27/2022 imagi ng/di agnos tic resul t No observ ation record ed. Not Available 01/23 17:44:07 01/24/20 24 03/03/2021 CT, head + neck No observ ation record ed. Not Available 01/23 17:44:10 01/24/20 24 03/08/2021 NM, gastr ic empty ing scan No observ ation record ed. Not Available 01/23 17:44:13 01/24/20 24 06/11/2021 NM, gastr ic empty ing scan No observ ation record ed. Not Available 01/23 17:44:14 01/24/20 24 05/07/2021 NM, hepat obili giovanny scan No observ ation record ed. Not Available 01/23 17:44:16 01/24/20 24 11/05/2020 imagi ng/di agnos tic resul t No observ ation record ed. Not Available 01/23 17:44:18 01/24/20 24 03/04/2021 XR, chest No observ ation record ed. Not Available 01/23 17:44:44 01/24/20 24 04/23/2021 XR, chest No observ ation record ed. Not Available 01/23 17:44:45 01/24/20 24 04/05/2023 imagi ng/di agnos tic resul t No observ ation record ed. Not Available 01/23 17:44:52 01/24/20 24 02/15/2023 imagi ng/di agnos tic resul t No observ ation record ed. Not Available 01/23 17:44:53 01/24/20 24 02/27/2023 imagi ng/di agnos tic resul t No observ ation record ed. Not Available 01/23 17:44:54 01/24/20 24 01/19/2023 imagi ng/di agnos tic resul t No observ ation record ed. Not Available 01/23 17:44:55 01/24/20 24 09/27/2022 imagi ng/di agnos tic resul t No observ ation record ed. Not Available 01/23 17:44:56 01/24/20 24 12/17/2022 imagi ng/di agnos tic resul t No observ ation record ed. Not Available 01/23 17:44:57 01/24/20 24 08/08/2022 imagi ng/di agnos tic resul t No observ ation record ed. Not Available 01/23 17:44:58 01/24/20 24 08/08/2022 imagi ng/di agnos tic resul t No observ ation record ed. Not Available 01/23 17:44:59 01/24/20 24 08/08/2022 imagi ng/di agnos tic resul t No observ ation record ed. Not Available 01/23 17:45:00 01/24/20 24 08/09/2022 imagi ng/di agnos tic resul t No observ ation record ed. Not Available 01/23 17:45:02 01/24/20 24 08/10/2022 imagi ng/di agnos tic resul t No observ ation record ed. Not Available 01/23 17:45:03 01/24/20 24 08/12/2022 imagi ng/di agnos tic resul t No observ ation record ed. Not Available 01/23 17:45:04 01/24/20 24 08/14/2022 imagi ng/di agnos tic resul t No observ ation record ed. Not Available 01/23 17:45:05 01/24/20 24 08/15/2022 imagi ng/di agnos tic resul t No observ ation record ed. Not Available 01/23 17:45:06 01/24/20 24 11/16/2022 imagi ng/di agnos tic resul t No observ ation record ed. Not Available 01/23 17:45:07 01/24/20 24 03/03/2021 CT, abdom en No observ ation record ed. Not Available 01/23 17:45:08 01/24/20 24 04/23/2021 CT, abdom en No observ ation record ed. Not Available 01/23 17:45:09 01/24/20 24 07/17/2021 CT, abdom en No observ ation record ed. Not Available 01/23 17:45:10 01/24/20 24 04/22/2021 CT, abdom en + pelvi s No observ ation record ed. Not Available 01/23 17:45:11 01/24/20 24 12/17/2022 bone densi ty No observ ation record ed. Not Available 01/23 17:45:13 01/24/20 24 11/05/2020 XR, chest No observ ation record ed. Not Available 01/23 17:45:27 01/24/20 24 03/03/2021 XR, chest No observ ation record ed. Not Available 01/23 17:45:28 01/24/20 24 07/17/2021 XR, chest No observ ation record ed. Not Available 01/23 17:45:29 01/24/20 24 07/27/2019 MAMMO , scree oly No observ ation record ed. Not Available 01/23 17:45:33 01/24/20 24 12/08/2021 marla DUMONT No observ ation record ed. Not Available 01/23 17:45:37 01/24/20 24 03/04/2021 US, zehra mahmood No observ ation record ed. Not Available 01/23 17:45:38 01/24/20 24 01/07/2023 US, derick x, nicole s, ariella dayy No observ ation record ed. Not Available 01/23 17:45:49 01/24/20 24 02/01/2023 imagi ng/di agnos tic resul t No observ ation record ed. Not Available 01/23 17:46:46 01/24/20 24 01/07/2023 imagi ng/di agnos tic resul t No observ ation record ed. Not Available 01/23 17:46:47 01/24/20 24 08/08/2022 imagi ng/di agnos tic resul t No observ ation record ed. Not Available 01/23 17:46:49 01/24/20 24 08/12/2022 imagi ng/di agnos tic resul t No observ ation record ed. Not Available 01/23 17:46:50 01/24/20 24 08/13/2022 imagi ng/di agnos tic resul t No observ ation record ed. Not Available 01/23 17:46:51 01/24/20 24 02/01/2023 imagi ng/di agnos tic resul t No observ ation record ed. Not Available 01/23 17:46:52 01/24/20 24 01/31/2023 imagi ng/di agnos tic resul t No observ ation record ed. Not Available 01/23 17:47:21 01/24/20 24 02/27/2023 imagi ng/di agnos tic resul t No observ ation record ed. Not Available 01/23 17:47:49 01/24/20 24 12/21/2022 imagi ng/di agnos tic resul t No observ ation record ed. Not Available 01/23 17:48:22 01/24/20 24 11/20/2022 imagi ng/di agnos tic resul t No observ ation record ed. Not Available 01/23 17:48:23 01/24/20 24 08/12/2022 imagi ng/di agnos tic resul t No observ ation record ed. Not Available 01/23 17:50:27 01/24/20 24 08/08/2022 imagi ng/di agnos tic resul t No observ ation record ed. Not Available 01/23 17:50:28 01/24/20 24 08/17/2022 imagi ng/di agnos tic resul t No observ ation record ed. Not Available 01/23 17:50:39 01/24/20 24 11/05/2020 imagi ng/di agnos tic resul t No observ ation record ed. Not Available 01/23 17:51:03 01/24/20 24 03/04/2021 imagi ng/di agnos tic resul t No observ ation record ed. Not Available 01/23 17:51:18 01/24/20 24 03/04/2021 imagi ng/di agnos tic resul t No observ ation record ed. Not Available 01/23 17:51:19 01/24/20 24 03/03/2021 imagi ng/di agnos tic resul t No observ ation record ed. Not Available 01/23 17:51:20 01/24/20 24 04/22/2021 imagi ng/di agnos tic resul t No observ ation record ed. Not Available 01/23 17:51:45 01/24/20 24 04/22/2021 imagi ng/di agnos tic resul t No observ ation record ed. Not Available 01/23 17:51:46 01/24/20 24 05/15/2019 imagi ng/di agnos tic resul t No observ ation record ed. Not Available 01/23 17:51:54 01/24/20 24 08/14/2022 imagi ng/di agnos tic resul t No observ ation record ed. Not Available 01/23 17:52:02 01/24/20 24 08/15/2022 imagi ng/di agnos tic resul t No observ ation record ed. Not Available 01/23 17:52:03 01/24/20 24 12/09/2022 imagi ng/di agnos tic resul t No observ ation record ed. Not Available 01/23 17:52:15 Result Notes None recorded. 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 5051966345 49381 Active [address], [place], [address], [facility] 4 10:46:42 Bipolar disorder 54022888 Active 2012 Orlin Alicea [facility] 4 18:49:12 Hyperlip idemia 72939765 Active [address], [facility] [id number] [place] [address] 4 10:49:59 Diaphrag matic hernia 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 Active 2013 Orlin Alicea [facility] 4 18:49:50 Shoulder joint pain 428208623 Completed 201403/31/2023 Problem Code: M25.519; Problem Code Type: ICD-10; MA[address], [facility] [id number] [place] [address] 3 13:43:54 Acute sinusiti s 95679672 Completed 201506/26/2015 Problem Code: J01.90; Problem Code Type: ICD-10; MA[address], [facility] [address] [place] [address] 3 13:53:21 Acquired absence of cervix and uterus 150383838 Completed 201507/15/2023 Problem Code: Z90.710; Problem Code Type: ICD-10; Orlin Alicea [facility] 4 18:48:56 Pain in thoracic spine 263095078 Completed 201803/31/2023 Problem Code: M54.9; Problem Code Type: ICD-10; [address], [facility] [address] [place] [address] 3 13:44:02 Vitamin D deficien cy 87624267 Active 2019 Orlinlexx [facility] 4 18:52:57 Generali zed anxiety disorder 15865950 Active 2019 Orlin Alicea [facility] 4 18:50:32 Cholelit hiasis without obstruct ion 01397708 Active 2020 [facility] 4 18:49:27 Insomnia 840347165 Active 2020 [facility] 4 18:51:51 Hernia of anterior abdomina l wall 676317355 Active 2021 [facility] 4 18:51:22 Polyneur opathy 15491674 Active 2022 [facility] 4 18:52:04 Pain of left hip joint 7328276820 97060 Completed 202203/31/2023 Problem Code: M25.552; Problem Code Type: ICD-10; MAIDA [address], [facility] [address], [facility] 3 13:44:40 Respirat ory crackles 78419081 Active 2022 MAIDA [address], [facility] [address], [facility] 3 14:48:31 Edema 391036378 Active 2022 [facility] 4 18:50:11 Proteinu maggi 32082176 Active 2022 [facility] 4 18:52:16 Senile osteopor osis 55380023 Active 2022 [address], [place], [address], [facility] 4 10:53:05 Blood in urine 58345152 Active 2022 [facility] 4 18:49:21 Tremor 86257460 Active 2019 facial movement s Orlinlexx pantoja, [facility] 4 18:52:51 Incoordi nation 488907841 Completed 202003/31/2023 06/09/19 23 - Comments only - Chris BEY - Reported as signific antly improved after completi ng PT. Problem Code: R27.9; Problem Code Type: ICD-10; [address], [place], [address], [facility] 3 13:45:29 Anemia 263999449 Completed 202007/03/2021 Problem Code: D64.9; Problem Code Type: ICD-10; Not Available [facility] 3 04:28:58 Nausea and vomiting 84737329 Completed 202007/03/2021 Problem Code: R11.2; Problem Code Type: ICD-10; Not Available [facility] 3 04:28:59 Mixed bipolar I disorder in partial remissio n 01164058 Completed 201912/10/2022 Problem Code: F31.77; Problem Code Type: ICD-10; Not Available [facility] 3 04:29:00 Enterost ghassan joe ion 51984884 Completed 202202/03/2023 Problem Code: K94.13; Problem Code Type: ICD-10; Not Available [facility] 3 04:29:00 Gastroes ophageal reflux disease 509228918 Completed 200202/03/2023 Problem Code: 530.81; Problem Code Type: ICD-9; [address], [place], [address], [facility] 3 14:48:31 Pain of right shoulder joint 5829209656 6206175 Completed 201402/03/2023 Problem Code: M25.511; Problem Code Type: ICD-10; Not Available [facility] 3 04:29:00 Tobacco user 555501507 Completed 201102/03/2023 Not Available [facility] 3 04:29:01 Left heart failure 14276451 Completed 202212/10/2022 Problem Code: I50.1; Problem Code Type: ICD-10; Not Available [facility] 3 04:29:01 Hiatal hernia 57374962 Completed 201302/03/2023 Not Available [facility] 3 04:29:02 Melena 7718152 Completed 202007/03/2021 Problem Code: K92.1; Problem Code Type: ICD-10; Not Available [facility] 3 04:29:03 Left heart failure 00564819 Completed 202212/10/2022 Problem Code: I50.1; Problem Code Type: ICD-10; Not Available [facility] 3 04:29:03 Secondar y parkinso nism 484857352 Completed 202112/10/2022 Problem Code: G21.19; Problem Code Type: ICD-10; Not Available [facility] 3 04:29:05 Noninfla mmatory disorder of the vagina 65511036 Completed 202007/03/2021 Problem Code: N89.8; Problem Code Type: ICD-10; [address], [place], [address], [facility]. 3 12:50:12 Bypass gastroje junostom y Active [address], [place], [address], [facility]. 3 11:27:02 Cyst of vagina 00884804 Completed 202203/31/[address], [place], [address], [facility]. 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 337429998 Completed 202203/31/[address], [place], [address], [facility] 3 13:52:25 Farrell' s esophagu s 185445504 Active [address], [place], [address], [facility] 3 14:48:31 Gastroes ophageal reflux disease 846925503 Active [address], [place], [address], [facility] 3 14:48:31 History of atrial flutter 270701075 Active [address], [place], [address], [facility] 4 10:50:21 History of cardiomy opathy 3097969397 77511 Active 2022 Stress induced [address], [place], [address], [facility] 4 10:48:26 Hearing loss 80085903 Active [address], [place], [address], [facility] 4 10:52:32 Hearing loss 37532154 Active [address], [place], [address], [facility] 3 14:51:27 Cough 69944316 Completed 202207/15/2023 Orlin pantoja, [facility] 4 18:53:36 Hip pain 70270183 Active 2022 Farideh Massey RN null, [facility] 3 15:18:22 Prosthet ic arthropl asty of hip Active 2022 Farideh Massey RN null, [facility] 3 15:18:56 Strictur e of esophagu s 94759650 Active [address] [place] [address] , [place], [address], [facility] 4 13:06:33 Acute upper respirat ory infectio n 88040759 Completed 202307/15/2023 [facility] 4 18:53:17 Atrial flutter 9024263 Active 2022 Orlin Alicea [facility] 4 18:54:59 Low blood pressure 02235764 Active 2022 Orlin Alicea [facility] 4 18:55:17 Aftercar e Completed 202207/15/2023 02/25/20 23 - Comments only - Chris DUDLEYP - Minimal dehiscen ce of hip incision today. I do not think there is presence of infectio n at this time, but due to location within skin fold I think she is high risk. Recommen ded covering with Mepilex to prevent skin over skin macerati on and irritati on. Recommen ded dressing every other day. Problem Code: Z51.89; Problem Code Type: ICD-10; [facility] 18:54:42 Pneumoni tis caused by inhaled substanc e 085637711 Completed 202207/15/2023 Problem Code: J69.0; Problem Code Type: ICD-10; Orlin pantoja, [facility] 4 18:54:15 Candidia sis of skin 41584121 Active [address], [address] 4 15:24:45 Hypoxia 055771937 Active [address], [address] 4 15:26:49 Muscle weakness 40829738 Active [address], [address] 4 15:33:20 Type 2 diabetes mellitus 19424406 Active [address], [address] 4 13:39:04 Aspirati on pneumoni a 207057816 Completed 202307/15/2023 Orlin [facility]ole[facility] 4 18:53:31 Total abdomina l hysterec yady Active [address], [address] 4 10:48:57 History of gallston es 161779363 Active 2020 [facility] 4 18:56:20 Pressure injury of buttock 876505172 Active [address], [address] 4 09:34:51 Candidia sis of vagina 93054827 Active [address], [place] [address], [facility] 4 09:36:38 Pruritus of vagina 36034806 Active [address], [place], [address], [facility] 4 09:48:28 History of pancreat itis 6568057639 9107 Active 2023 TYRON DRAPER MA null, [facility] 4 09:52:28 Problem Notes None recorded. Procedures Surgical History Date Name Laterality Status Provider Name and Address Organization Details Recorded Time 3 Most Recent Mammogram completed Prachi Blancas RN [facility] 04/23/2023 14:35:47 3 Most Recent Bone Density completed RUBIO VALDIVIA [facility] 07/06/2023 11:40:24 2 Date of Last Colonoscopy completed RUBIO VALDIVIA [facility] 07/06/2023 11:45:32 Imaging Results Imaging Date Name Status LastModified by Organization Details LastModified Time 07/02/2023 electrocardiogram completed [id number] [address] [place], [address] 07/02/2023 12:23:00 07/02/2023 electrocardiogram completed [address] [place], [address] 07/02/2023 12:23:00 07/02/2023 x-ray imaging report completed [email or web address] Jonatan tyson [address] [place], [address] 07/02/2023 13:39:28 07/02/2023 electrocardiogram completed [email or web address] [place] [address] [place], [address] 07/03/2023 06:42:41 07/02/2023 history physical examination completed [id number] [address] [place], [address] 07/03/2023 06:43:46 07/02/2023 ED visit note completed [id number] [address] [place], [address] 07/03/2023 06:43:47 07/03/2023 progress note completed [address] [place], [address] 07/06/2023 06:41:39 07/04/2023 progress note completed [address] [place], [address] 07/06/2023 06:41:39 07/03/2023 initial care management assess completed [address] [place], [address] 07/06/2023 06:41:40 07/05/2023 electrocardiogram completed [address] [place], [address] 07/06/2023 06:41:38 07/05/2023 electrocardiogram completed [address] [place], [address] 07/06/2023 06:41:37 07/05/2023 electrocardiogram completed [address] [place], [address] 07/06/2023 06:41:36 07/02/2023 electrocardiogram completed [address] [place], [address] 07/06/2023 06:41:41 07/05/2023 ultrasound imaging report completed [id number] [place], [address] 07/06/2023 06:41:35 07/05/2023 cardiology consultation completed [address] [place], [address] 07/06/2023 06:41:34 07/05/2023 care management discharge completed [address] [place], [address] 07/06/2023 06:41:33 07/05/2023 discharge summary completed [facility] [address] [place], [address] 07/07/2023 10:42:01 01/24/2024 x-ray imaging report completed [place] [address] [facility] [place], [address] 01/24/2024 11:53:52 04/22/2021 imaging/diagnostic result completed Information not available 01/24/2024 17:43:04 04/22/2021 imaging/diagnostic result completed Information not available 01/24/2024 17:43:06 02/18/2022 imaging/diagnostic result completed Information not available 01/24/2024 17:43:33 04/04/2023 imaging/diagnostic result completed Information not available 01/24/2024 17:43:58 01/31/2023 imaging/diagnostic result completed Information not available 01/24/2024 17:43:59 02/26/2023 imaging/diagnostic result completed Information not available 01/24/2024 17:44:00 08/08/2022 imaging/diagnostic result completed Information not available 01/24/2024 17:44:01 08/08/2022 imaging/diagnostic result completed Information not available 01/24/2024 17:44:02 08/08/2022 imaging/diagnostic result completed Information not available 01/24/2024 17:44:04 08/08/2022 imaging/diagnostic result completed Information not available 01/24/2024 17:44:04 08/14/2022 imaging/diagnostic result completed Information not available 01/24/2024 17:44:05 08/14/2022 imaging/diagnostic result completed Information not available 01/24/2024 17:44:06 09/27/2022 imaging/diagnostic result completed Information not available 01/24/2024 17:44:07 03/03/2021 CT, head + neck completed Informati on not available 01/24/2024 17:44:10 03/08/2021 NM, gastric emptying scan completed Information not available 01/24/2024 17:44:13 06/11/2021 NM, gastric emptying scan completed Information not available 01/24/2024 17:44:14 05/07/2021 NM, hepatobiliary scan completed Information not available 01/24/2024 17:44:16 11/05/2020 imaging/diagnostic result completed Information not available 01/24/2024 17:44:18 03/04/2021 XR, chest completed Information no t available 01/24/2024 17:44:44 04/23/2021 XR, chest completed Information no t available 01/24/2024 17:44:45 04/05/2023 imaging/diagnostic result completed Information not available 01/24/2024 17:44:52 02/15/2023 imaging/diagnostic result completed Information not available 01/24/2024 17:44:53 02/27/2023 imaging/diagnostic result completed Information not available 01/24/2024 17:44:54 01/19/2023 imaging/diagnostic result completed Information not available 01/24/2024 17:44:55 09/27/2022 imaging/diagnostic result completed Information not available 01/24/2024 17:44:56 12/17/2022 imaging/diagnostic result completed Information not available 01/24/2024 17:44:57 08/08/2022 imaging/diagnostic result completed Information not available 01/24/2024 17:44:58 08/08/2022 imaging/diagnostic result completed Information not available 01/24/2024 17:44:59 08/08/2022 imaging/diagnostic result completed Information not available 01/24/2024 17:45:00 08/09/2022 imaging/diagnostic result completed Information not available 01/24/2024 17:45:02 08/10/2022 imaging/diagnostic result completed Information not available 01/24/2024 17:45:03 08/12/2022 imaging/diagnostic result completed Information not available 01/24/2024 17:45:04 08/14/2022 imaging/diagnostic result completed Information not available 01/24/2024 17:45:05 08/15/2022 imaging/diagnostic result completed Information not available 01/24/2024 17:45:06 11/16/2022 imaging/diagnostic result completed Information not available 01/24/2024 17:45:07 03/03/2021 CT, abdomen completed Information n ot available 01/24/2024 17:45:08 04/23/2021 CT, abdomen completed Information n ot available 01/24/2024 17:45:09 07/17/2021 CT, abdomen completed Information n ot available 01/24/2024 17:45:10 04/22/2021 CT, abdomen + pelvis completed Info rmation not available 01/24/2024 17:45:11 12/17/2022 bone density completed Information not available 01/24/2024 17:45:13 11/05/2020 XR, chest completed Information no t available 01/24/2024 17:45:27 03/03/2021 XR, chest completed Information no t available 01/24/2024 17:45:28 07/17/2021 XR, chest completed Information no t available 01/24/2024 17:45:29 07/27/2019 MAMMO, screening completed Informat ion not available 01/24/2024 17:45:33 12/08/2021 MAMMO, screening completed Informat ion not available 01/24/2024 17:45:37 03/04/2021 US, abdomen completed Information n ot available 01/24/2024 17:45:38 01/07/2023 US, duplex, venous, extremity completed Information not available 01/24/2024 17:45:49 02/01/2023 imaging/diagnostic result completed Information not available 01/24/2024 17:46:46 01/07/2023 imaging/diagnostic result completed Information not available 01/24/2024 17:46:47 08/08/2022 imaging/diagnostic result completed Information not available 01/24/2024 17:46:49 08/12/2022 imaging/diagnostic result completed Information not available 01/24/2024 17:46:50 08/13/2022 imaging/diagnostic result completed Information not available 01/24/2024 17:46:51 02/01/2023 imaging/diagnostic result completed Information not available 01/24/2024 17:46:52 01/31/2023 imaging/diagnostic result completed Information not available 01/24/2024 17:47:21 02/27/2023 imaging/diagnostic result completed Information not available 01/24/2024 17:47:49 12/21/2022 imaging/diagnostic result completed Information not available 01/24/2024 17:48:22 11/20/2022 imaging/diagnostic result completed Information not available 01/24/2024 17:48:23 08/12/2022 imaging/diagnostic result completed Information not available 01/24/2024 17:50:27 08/08/2022 imaging/diagnostic result completed Information not available 01/24/2024 17:50:28 08/17/2022 imaging/diagnostic result completed Information not available 01/24/2024 17:50:39 11/05/2020 imaging/diagnostic result completed Information not available 01/24/2024 17:51:03 03/04/2021 imaging/diagnostic result completed Information not available 01/24/2024 17:51:18 03/04/2021 imaging/diagnostic result completed Information not available 01/24/2024 17:51:19 03/03/2021 imaging/diagnostic result completed Information not available 01/24/2024 17:51:20 04/22/2021 imaging/diagnostic result completed Information not available 01/24/2024 17:51:45 04/22/2021 imaging/diagnostic result completed Information not available 01/24/2024 17:51:46 05/15/2019 imaging/diagnostic result completed Information not available 01/24/2024 17:51:54 08/14/2022 imaging/diagnostic result completed Information not available 01/24/2024 17:52:02 08/15/2022 imaging/diagnostic result completed Information not available 01/24/2024 17:52:03 12/09/2022 imaging/diagnostic result completed Information not available 01/24/2024 17:52:15 Procedure Notes None recorded. Medical Equipment None Reported. Allergies Allergen ID Allergen Name Allergen Category Reaction Reaction Severity Criticality Documentation Date Start Date Code Code System Note Provider Name and Address Organization Details Recorded Time 31377 metformin hydrochlo ride medicatio n diarrhea moderate Not available 03/19/20232019 50324 3 RxNorm Diarr hea Not Available [facility] 3 16:31:03 81964 Demerol medicatio n vomiting mild Not available 03/19/20232005 61856 1 RxNorm [facility] 4 18:45:52 Medications Name Sig Start Date Stop Date Status Note LastModified by Organization Details LastModified Time Prescript ion - Renewal active DME Not Available Not Available Not Available atorvasta tin 40 mg tablet Take 1 [...] t Available trazodone 50 mg tablet 1/2-1 QHS 05/14 completed Not Available Not Available Not [...] ous solution 10 units nightly 03/31 completed [facility] Endocrin ology 10/2022 Not Available Not Available [...] by mouth once a day 03/31 completed [facility] D/C 09/25/22 Not Available Not Available Not [...] 250 mg/5 mL oral solution TAKE 6ML THREE TIMES A DAY VIA G-TUBE active Not Available Not Available No t Available fluconazo le 10 mg/mL oral suspensio n TAKE 16MLS VIA G-TUBE ONCE THE REPEAT IN 3 DAYS IF NEEDED 07/29 completed Not Available Not Available Not Available OneTouch Ultra Test strips TEST FOUR TIMES A [...] day as directed 09/29 completed Changed per [facility] d/c summary 07/19/21 Not Available Not Available [...] completed Not Available Not Available Not Available clotrimaz ole 1 % topical cream APPLY TO AFFECTED AND SURROUND ING AREAS OF SKIN TWICE EVERY DAY IN THE MORNING AND EVENING UNTIL RESOLVED active Not Available Not Available No t Available sertralin e 50 mg tablet Take [...] as needed For nausea 02/24 completed Per [facility] d/c summary 07/19/21 Not Available Not Available [...] 10 % topical cream Apply a thin gold layer to 4 times a day as needed. 06/25 completed Not Available Not Available Not Available duloxetin e 20 mg capsule,d elayed release Take 1 capsules per day via g-tube in the evening, this is in addition to 60 mg capsule in the AM. 2023 active Not Available Not Available Not Avai lable duloxetin e 60 mg capsule,d elayed release [...] e Short Pen Needle 31 gauge x 09/22 Use 1 needle subcutan eously once a [...] AM and 1000mg at HS 04/14 completed [facility] D/C 09/25/22 Not Available Not Available Not [...] 6 mL three times daily 05/13 completed [facility] D/C 09/25/22 Not Available Not Available Not [...] by mouth once a day 03/31 completed [facility] D/C 09/25/22 Not Available Not Available Not [...] completed Not Available Not Available Not Available Likmez 500 mg/5 mL oral suspensio n ADMINIST ER 5ML TWICE DAILY VIA JG TUBE FOR 7 DAYS active Not Available Not Available No t Available Vitals Date Recorded Body height Body temperature Oxygen saturation Oxygen saturation in Arterial blood by Pulse oximetry Heart rate Body mass index (BMI) Body weight Systolic blood pressure Diastolic blood pressure Provider Name and Address Organization Details Last Updated DateTime 4 154.94 cm 98 [degF] 96 % 96 % 90 /min 28.9 kg/m2 18703.6 3 g 110 mm[Hg] 68 mm[Hg] Prachi Blancas RN [facility] 4 09:54:18 Date Recorded Body height Body mass index (BMI) Body weight Body temperature Oxygen saturation Oxygen saturation in Arterial blood by Pulse oximetry Heart rate Systolic blood pressure Diastolic blood pressure Provider Name and Address Organization Details Last Updated DateTime 4 154.94 cm 28.3 kg/m2 95696.1 4 g 96.9 [degF] 99 % 99 % 69 /min 90 mm[Hg] 62 mm[Hg] Prachi Blancas RN [facility] 4 09:02:42 Date Recorded Body height Body temperature Oxygen saturation Oxygen saturation in Arterial blood by Pulse oximetry Heart rate Body mass index (BMI) Body weight Systolic blood pressure Diastolic blood pressure Provider Name and Address Organization Details Last Updated DateTime 4 154.94 cm 96.6 [degF] 96 % 96 % 57 /min 28.4 kg/m2 47242.5 7 g 102 mm[Hg] 60 mm[Hg] Prachi Blancas RN [facility] 4 10:51:36 Date Recorded Body height Body mass index (BMI) Body weight Body temperature Oxygen saturation Oxygen saturation in Arterial blood by Pulse oximetry Heart rate Systolic blood pressure Diastolic blood pressure Provider Name and Address Organization Details Last Updated DateTime 4 154.94 cm 26.9 kg/m2 61329.5 5 g 96.3 [degF] 99 % 99 % 61 /min 110 mm[Hg] 62 mm[Hg] Prachi Blancas RN [facility] 4 10:54:49 Date Recorded Body height Body mass index (BMI) Body weight Body temperature Oxygen saturation Oxygen saturation in Arterial blood by Pulse oximetry Heart rate Systolic blood pressure Diastolic blood pressure Provider Name and Address Organization Details Last Updated DateTime 4 154.94 cm 26.5 kg/m2 24676.6 5 g 97.3 [degF] 99 % 99 % 54 /min 112 mm[Hg] 64 mm[Hg] Prachi Blancas RN [facility] 4 11:11:58 Social History Question Answer Notes LastModified by Organizat ion Details LastModified Time Tobacco Smoking Status Former Smoker ETSHER YANG RN [facility], [facility] 05/13/2023 11:38:26 When Did You Quit Smoking? 1-5yearssin celastciatif ette [id number] Information not available 05/13/2023 Date Care Plan Printed: 11/18/2023 Information not available 11/18/2023 Assigned Vice President Financial: Aggie Mae [email or web address] Information not available 11/18/2023 Is [facility] The Lead Vice President Financial? Yes Information not available 11/18/2023 Level Of Intensity: Bi-Annually And As Needed. Will Call Me Information not available 11/18/2023 Team Based Care: No Information not available 11/18/2023 Social Barrier Yes Informatio n not available 11/18/2023 Other Barriers To Care (See Note) Yes Pt Has Anxiety And Depression Which Worsens At Times Information not available 11/18/2023 Financial Barrier Yes Information not available 11/18/2023 [employer] Supervisor Yes Information not available 11/18/2023 Diabetes Education [...] recorded. Mental Status None recorded. Family History Nothing Reported Notes:*Problem: Mother: aliv e , AlzheimersNo Heart Disease, DM, or Cancer. Father: age 69 cause of internal bleeding - ? aneurysm. [place] age 60s, HTN, hyperlipidemia Had late onset [...] preservative free, adsorbed 07/12/2019 completed Not Available [facility] 03/19/2023 06:16:19 Tdap 01/09/2009 completed Not Available [facility] 06:16:20 Influenza, split virus, trivalent, preservative 01/31/2015 completed Not Available [facility] 03/19/2023 06:16:20 Influenza, split virus, trivalent, preservative 03/26/2016 completed Not Available [facility] 03/19/2023 06:16:20 Influenza, split virus, quadrivalent, PF 05/15/2019 completed Not Available [facility] 03/19/2023 06:16:20 Influenza, split virus, quadrivalent, PF 01/12/2020 completed Not Available [facility] 03/19/2023 06:16:20 Influenza, split virus, quadrivalent, PF 02/24/2022 completed Not Available [facility] 03/19/2023 06:16:20 Influenza, split virus, quadrivalent, PF 03/14/2021 completed Not Available [facility] 03/19/2023 06:16:20 Influenza, split virus, quadrivalent, preservative 02/04/2017 completed Not Available [facility] 03/19/2023 06:16:20 zoster recombinant 07/03/2021 completed Not Available [facility] 03/19/2023 06:16:20 zoster recombinant 11/06/2021 completed Not Available [facility] 03/19/2023 06:16:20 COVID-19, mRNA, LNP-S, PF, 100 mcg/0.5mL dose or 50 mcg/0.25mL dose 07/18/2020 completed Not Available [facility] 03/19/2023 06:16:21 COVID-19, mRNA, LNP-S, PF, 100 mcg/0.5mL dose or 50 mcg/0.25mL dose 08/15/2020 completed Not Available [facility] 03/19/2023 06:16:21 COVID-19, mRNA, LNP-S, PF, 100 mcg/0.5mL dose or 50 mcg/0.25mL dose 11/06/2021 completed Not Available [facility] 03/19/2023 06:16:21 COVID-19, mRNA, LNP-S, PF, 100 mcg/0.5mL dose or 50 mcg/0.25mL dose 03/14/2021 completed Not Available [facility] 03/19/2023 06:16:21 Pneumococcal conjugate PCV20, polysaccharide [id number] conjugate, adjuvant, PF 02/24/2022 completed Not Available [facility] 03/19/2023 06:16:21 COVID-19, mRNA, LNP-S, bivalent, PF, 30 mcg/0.3 mL dose 02/24/2022 completed Not Available [facility] 03/19/20 06:16:21 pneumococcal polysaccharide PPV23 01/09/2009 completed Not Available [facility] 2022 06:16:21 Influenza, split virus, quadrivalent, PF 02/24/2023 completed Not Available [facility] 05/21/2023 05:31:34 COVID-19, mRNA, LNP-S, PF, daniela-sucrose, 30 mcg/0.3 mL 02/24/2023 completed Not Available [facility] 05/21/2023 05:31:35 Past Encounters Encounter ID Performer Location Encounter Start Date Encounter Closed Date Diagnosis/Indication Diagnosis SNOMED-CT Code Diagnosis ICD10 Code [id number] CHRIS STANLEY [address] [address] 03/31/2023 13:52:55 03/31/2023 14:48:07 Hyperglycemia due to type 2 diabetes mellitus 1007972895 39478 E11.65 Senile osteoporosis 1804 0001 M81.0 History of heart failure 298586135 Z86.79 History of hematuria 161 703483 Z87.448 Hearing loss 41129771 H9 1.91 Cough 97234777 R05.9 [id number] CHRIS STANLEY [address] [address] 05/13/2023 11:24:56 05/13/2023 12:21:08 Bipolar disorder 57000054 F31.9 Stricture of esophagus 23759655 K22.2 [id number] CHRIS STANLEY [address] [address] 05/21/2023 11:10:39 05/21/2023 14:11:27 Skin lesion 25531424 L98.9 Candidiasis of skin 4988 3006 B37.2 Hypoxia 234531646 R09.02 Muscle weakness 34508573 M62.81 History of cardiomyopathy 2701829862 84177 Z86.79 Stricture of esophagus 35392295 K22.2 [id number] CHRIS STANLEY [address] [address] 05/25/2023 09:23:39 05/25/2023 10:42:06 Candidiasis of skin 80984575 B37.2 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 [id number] Prachi Blancas RN [address] [address] 06/25/2023 09:34:23 06/25/2023 10:46:13 Aspiration pneumonia 204980131 J69.0 Upper resp iratory infection 78594457 J06.9 [id number] CHRIS STANLEY [address] [address] 06/30/2023 09:21:07 06/30/2023 10:45:05 Hip pain 10175642 M25.559 Aspiration pneumonia 422 238087 J69.0 Candidiasis of skin 4988 3006 B37.2 [id number] CHRIS STANLEY [address] [address] 07/16/2023 08:26:14 07/16/2023 10:18:19 Pressure injury of buttock 951551164 L89.309 Candidiasis of vagina 72 620873 B37.31 [id number] CHRIS STANLEY [address] [address] 07/30/2023 10:18:16 07/30/2023 11:16:51 Polyneuropathy 76135774 G62.9 Hyperglyce contreras due to type 2 diabetes mellitus 2003290936 92996 E11.65 [id number] CHRIS STANLEY [address] [address] 09/01/2023 10:33:38 09/01/2023 11:21:31 Stricture of esophagus 50390089 K22.2 History of cardiomyopathy 1838174618 86251 Z86.79 Polyneuropathy 92077782 G62.9 [id number] MAIDA TOSCANO [facility] [address] [place] [address] 12/03/2023 10:35:02 12/03/2023 11:43:48 Hyperglycemia due to type 2 diabetes mellitus 6056535880 56186 E11.65 Pruritus of vagina 92236 003 L29.3 Polyneuropathy 27285719 G62.9 Goals Section Goal Description Status Start Date LastModified by Organization Details LastModified Time Pt's Polyneuropathy will show improvement. None Recorded Goal not achieved AGGIE MAE Information not available 11/18/2023 15:22:57 Pt's quality of life will improve. None Recorded Goal not achieved AGGIE MAE Information not available 11/18/2023 15:27:32 Health Concerns Section Related Observation LastModified by Organization Detai ls LastModified Time None Recorded Concern Status LastModified by Organization Details LastModified Time None Recorded Advance Directives Directive None Recorded Payers Encounter Date Sequence Insurance Name Policy Number Policy Camargo Covered Member ID Camargo Member ID Guarantor Name 06/30/2023 1 [employer] (MEDICAID) Jennifer Johanny Aristides [id number] Jennifer Johanny Aristides 07/16/2023 1 [employer] (MEDICAID) Jennifer Johanny Irving [id number] Jennifer Johanny Aristides 07/30/2023 1 [employer] ([employer]ICAID) Jennifer Johanny Irving [id number] Jennifer Johanny Irving 09/01/2023 1 [employer] (MEDICAID) Jennifer Johanny Irving [id number] Jennifer Johanny Irving 12/03/2023 1 [facility] (MEDICAID) [facility] [id number] [facility] Notes Date Note Type Note Provider Name and Address Organization Details Recorded Time 06/30/2023 text/html HPI Notes: Jamaal oh is here to follow-up regarding recent respiratory illness. She reports that she is feeling better and stronger. She is using her nebulizer less. She has been wearing her oxygen some during the day. She normally only wears at night. MA[address], [place], [address], [facility]. 07/01/2023 07:32:33 07/16/2023 text/html HPI Notes: Alber mejia hospitalized with pneumonia. She has no respiratory concerns today. She is most concerned with vaginal itching. She denies dysuria or vaginal discharge. She believes she has a yeast infection. She is also concerned that she has skin breakdown that occured while in the hospital on her buttocks. MAIDA TOS[address], [place], [address], [facility]. 07/16/2023 15:31:21 07/30/2023 text/html HPI Notes: Sherry marc would like to discuss transitioning off of gabapentin and onto Cymbalta. She finds gabapentin to be minimally effective for lower extremity neuropathy and finds it to be sedating. She is hoping that the Cymbalta would help with neuropathy and also help with her mood. [address]IDA [address], [place], [address], [facility] 07/30/2023 12:20:23 09/01/2023 text/html HPI Notes: Has [...] for stricture of esophagus. MAIDA [address]OS[address], [place], [address], [facility]. 09/01/2023 11:42:46 12/03/2023 text/html HPI Notes: Jamaal oh is here today with her . They would like to increase cymbalta too see if that might help with lingering neuropathy in Jennifer's feet. They have found the medication to be beneficial overall. Jennifer is most concerned about excessive vaginal irritation that has been present for about 1 week. She describes copious amounts of clear discharge with vaginal itching. Overall she has been doing well, she has not had any episodes of low glucose. The only things that she is eating orally is tomato soup and ice cream. She has a consultation next week with a thoracic surgeon for consideration for surgical removal of esophageal stricture. She is not walking without a walker or cane (for the past month). CHRIS STANLEY, MAIDA [address], [place], [address], [facility]. 12/04/2023 09:49:38 OBGyn Episode No OBEpisode recorded.
--- OUTSIDE RECORDS SUMMARY | 2024-02-05 12:43 | XMS_ITS | Encounter Summary ---
Author Organization [facility] Address [facility] [place] [address] Care Team Providers Care Electronic Assembly Name Role Phone Ana Gillespie VAUGHN Primary Care Provider [phone] Encounter Details Date Type Department Care Team (Late st Contact Info) Description 11/05/2023 8:30 AM EDT - 11/05/2023 9:00 AM EDT Surgery [place] [address] David Dejesus MD [facility] [place] [address] EGD-DILATATION BY SOUND OR BOUGIE, SINGLE OR [...] better as expected. Wednesday-Wednesday Same Day Endo [phone] Otherwise contact [phone] and ask to speak to the ice cream vendor group leader semiconductor processing Follow-up care is a fam part of [...] 180 tablet 3 10/20/2021 Blood Sugar Diagnostic (VIP ParkingTOUCH ULTRA TEST) StripIndications:Type 2 diabetes mellitus, uncontrolled [...] meter kit. 1 each 0 12/14/2014 Insulin [place], Disposable, (BD INSULIN PEN NEEDLE UF MINI) 31 x 3/16 NeedleIndications:Josefina betallison mellitus type 2, uncontrolled 1 Device by [facility]Non-Drug; Combo Route) route 3 times daily as needed. 100 each 11 12/13/2014 documented as of this encounter Progress Notes * Valerie Johnson RN - 11/05/2023 9:45 AM EDT Patient alert and oriented, vital signs stable. Reviewed discharge instructions; patient and verbalized understanding. Copy of instruction sheet with contact numbers for questions/concerns. Pain assessment documented. Patient escorted out of department via wheelchair with /spike driver. documented in this encounter H&P Notes [...] glucose meter kit. 1 each 0 Insulin [place], Disposable, (BD INSULIN PEN NEEDLE UF MINI) 31 x 3/16 Needle 1 Device by [facility].(Non-Drug; Combo Route) route 3 times daily as [...] 4:00 PM EDT Office Visit Cardiology at [address] [address] Milagros Hernandez MD [facility] [place] [address] Scheduled Procedures Name Priority Associated Diagnoses Date/Ti me EGD, UPPER GI ENDOSCOPY (WRV U 2.09) Peptic stricture of esophagus documented as of this encounter Procedures Procedure Name Priority Date/Time Associated Diagnosis Comments Up Gi Endoscopy, Dilatn W Guide (16990) 11/05/2023 8:34 AM EDT Peptic stricture of esophagus Dilate Esophagus (94266) 11/05/2023 8:34 AM EDT Peptic stricture of esophagus POCT GLUCOSE Routine 11/05/2023 7:50 AM EDT documented in this encounter Results * POCT Glucose (11/05/2023 7:50 AM EDT) Glucose, POC 86 65 - 199 mg/dL [facility] Comment: Supplemental ranges: <140 mg/dL before meals <180 mg/dL all other times of the day Blood 11/05/2023 7:50 AM EDT 11/05/2023 7:50 AM EDT David Dejesus MD POINT OF CARE TEST ORDERABLES [facility] [place] [address] documented in this encounter Visit Diagnoses Diagnosis [...] CRNA) documented in this encounter Care Teams Electronic Assembly Relationship Specialty Start Date End Date Ana Gillespie APRN [address] [place] [address] PCP - General Family Medicine 02/03/19 documented as of this encounter
--- OUTSIDE RECORDS SUMMARY | 2024-02-05 12:43 | XMS_ITS | Encounter Summary ---
Author Organization [facility] [place] [address] Care Team Providers Care Wastewater Treatment Plant Operator Name Role Phone Ana Gillespie APRN Primary Care Provider [phone] Encounter Details Date Type Department Care Team [...] 4:00 PM EDT Office Visit Cardiology at [address] [address] Milagros Hernandez MD [facility] [address] Scheduled Procedures Name Priority Associated Diagnoses Date/Ti me EGD, UPPER GI ENDOSCOPY (WRV U 2.09) Peptic stricture of esophagus documented as of this encounter Visit Diagnoses Not on filedocumented in this encounter Care Teams Wastewater Treatment Plant Operator Relationship Specialty Start Date End Date Ana Gillespie APRN [address] [place] [address] PCP - General Family Medicine 02/03/19 documented as of this encounter
--- OUTSIDE RECORDS SUMMARY | 2024-02-05 12:43 | XMS_ITS | Encounter Summary ---
Author Organization [facility] [place] [address] Care Team Providers Care Dishwasher Busser Name Role Phone Ana Gillespie APRN Primary Care Provider [phone] Encounter Details Date Type Department Care Team [...] 4:00 PM EDT Office Visit Cardiology at [address] [address] Milagros Hernandez MD [facility] [place] [address] Scheduled Procedures Name Priority Associated Diagnoses Date/Ti me EGD, UPPER GI ENDOSCOPY (WRV U 2.09) Peptic stricture of esophagus documented as of this encounter Visit Diagnoses Not on filedocumented in this encounter Care Teams Dishwasher Busser Relationship Specialty Start Date End Date Ana Gillespie APRN [address] [place] [address] PCP - General Family Medicine 02/03/19 documented as of this encounter
--- OUTSIDE RECORDS SUMMARY | 2024-02-05 12:43 | XMS_ITS | Encounter Summary ---
Author Organization [facility] Address [facility] [place] [address] Care Team Providers Care Rail Assembler Name Role Phone Ana Gillespie APRN Primary Care Provider [phone] Encounter Details Date Type Department Care Team (Late Contact Info) Description 01/19/2024 Telephone [place] [address] Chiquita James, RN Social History [...] Telephone Encounter - Chiquita James, RN - 01/19/2024 1:24 PM EDT Incoming VM from Jennifer Gasca's , regarding her tube feed. States he called [facility] today for supplies for her and was told her case has been closed requestingan order for her tube feed to resume be sent to [facility]. Forwarded documented in this encounter Plan of Treatment Upcoming Encounters Date Type Department Care Team (Late Contact Info) Description 03/10/2024 4:00 PM EDT Office Visit Cardiology at [address] [address] Milagros Hernandez MD [facility] [place] [address] Scheduled Procedures Name Priority Associated Diagnoses Date/Ti me EGD, UPPER GI ENDOSCOPY (WRV U 2.09) Peptic stricture of esophagus documented as of this encounter Visit Diagnoses Not on filedocumented in this encounter Care Teams Rail Assembler Relationship Specialty Start Date End Date Ana Gillespie APRN [address] [place] [address] PCP - General Family Medicine 02/03/19 documented as of this encounter
--- OUTSIDE RECORDS SUMMARY | 2024-02-05 12:43 | XMS_ITS | Encounter Summary ---
Author Organization [facility] [place] [address] Care Team Providers Care Supervisor Joiners Name Role Phone Ana Gillespie APRN Primary Care Provider [phone] Encounter Details Date Type Department Care Team (Late st Contact Info) Description 10/12/2023 Telephone [place] [phone] Niru Mary Social History Tobacco Use Types [...] - 10/12/2023 2:45 PM EDT Copied from [facility] #[id number]. Topic: Specialty Dept CRMs - Generic Call >> Aug 20, 2023 8:14 AM Crispin Reeves wrote: Specialist: Bang Relationship (if other than patient-full name): Spouse, Campos Irving Reason for Call: Campos canceled 08/20/23 PFT and FUV, due to illness. Campos declined having this report writer reschedule. Please call Campos to coordinate rescheduling [id number] appointments with Campos. documented in this encounter Plan of Treatment Upcoming Encounters Date Type Department Care Team (Late st Contact Info) Description 03/10/2024 4:00 PM EDT Office Visit Cardiology at [address] [address] Milagros Hernandez MD [facility] [place] [address] Scheduled Procedures Name Priority Associated Diagnoses Date/Ti me EGD, UPPER GI ENDOSCOPY (WRV U 2.09) Peptic stricture of esophagus documented as of this encounter Visit Diagnoses Not on filedocumented in this encounter Care Teams Supervisor Joiners Relationship Specialty Start Date End Date Ana Gillespie APRN [address] [place] [address] PCP - General Family Medicine 02/03/19 documented as of this encounter
--- OUTSIDE RECORDS SUMMARY | 2024-02-05 12:43 | XMS_ITS | Encounter Summary ---
Author Organization [facility] Address [facility] [place] [address] Care Team Providers Care District Scout Executive Name Role Phone Ana Gillespie APRN Primary Care Provider [phone] Encounter Details Date Type Department Care Team (Late st Contact Info) Description 10/07/2023 Orders [place] [address] David Dejesus MD [facility] [place] [address] Social History Tobacco Use Types Packs/Day Years [...] 4:00 PM EDT Office Visit Cardiology at [address] [phone] Milagros Hernandez MD [facility] [place] [address] Scheduled Procedures Name Priority Associated Diagnoses Date/Ti me EGD, UPPER GI ENDOSCOPY (WRV U 2.09) Peptic stricture of esophagus documented as of this encounter Visit Diagnoses Not on filedocumented in this encounter Care Teams District Scout Executive Relationship Specialty Start Date End Date Ana Gillespie APRN [address] [place] [address] PCP - General Family Medicine 02/03/19 documented as of this encounter
--- OUTSIDE RECORDS SUMMARY | 2024-02-05 12:43 | XMS_ITS | Encounter Summary ---
Author Organization [facility] Address [facility] [place] [address] Care Team Providers Care Manager Travel Name Role Phone Ana Gillespie VAUGHN Primary Care Provider [phone] Reason for Visit * Reason Comments Establish Care Dysphagia Encounter Details Date Type Department Care Team (Late st Contact Info) Description 12/07/2023 2:00 PM EDT Office [place] [address] Richard Diallo MD [facility] [place] [address] History of chronic pancreatitis; Esophageal stricture Social History Tobacco Use Types Packs/Day Years Used Date Smoking Tobacco: Former Cigarettes 1 - 02/26/2021 Smokeless Tobacco: Never Tobacco Cessation:Counseling Given: Not Answered Comments:1PPD x 40 years, quit 4 yearaago Alcohol Use Standard Drinks/Week Comments Not Currently 0 (1 standard drink = 0.6 oz pur e alcohol) Sex and Gender Information Value Date Recorded Sex Assigned at Not on file Gender Identity Not on file Sexual Orientation Not on file documented as of this encounter Last Filed Vital Signs Vital Sign Reading Time Taken Comments Blood Pressure 115/67 12/07/2023 11:43 AM EDT Pulse 56 12/07/2023 11:43 AM EDT Temperature 36.4 ??C (97.5 ??F) 12/07/2023 1 1:43 AM EDT Respiratory Rate 17 12/07/2023 11:4 3 AM EDT Oxygen Saturation 99% 12/07/2023 11: 43 AM EDT Inhaled Oxygen Concentration - - Weight 63.4 kg (139 lb 12.4 oz) 024 11:43 AM EDT Height 155 cm (5' 1.02) 12/07/2023 11: 43 AM EDT Body Mass Index 26.39 12/07/2023 11:43 AM EDT documented in this encounter H&P Notes * Richard Diallo MD - 12/07/2023 2:00 PM EDT Images from the original note were not included. Thoracic Surgery Attending Outpatient Consultation Note MD Alla Kirk PA-C [place] [address] FAX: Date of Consultation: 12/07/2023 This consultation has been requested by PCP: Ana Gillespie APRN Referring Physician: Ana Gillespie APRN [address] [place] [id number] Purpose for Consultation: esophageal stricture HPI: Jenniferanne Irving is a 63 y.o. female with PMHx of stress (Takotsubo) cardiomyopathy complicated by acute HFrEF (now recovered with EF 55%) and cardiogenic shock in the setting of aspiration pneumonia with hypoxic respiratory failure in 08/2022, BPAD with neuroleptic induced Parkinsonism, IDD M2, iron deficiency anemia, COPD with most recent exacerbation in 06/2023 c/b NSTEMI, chronic aspiration 2/2 severe oropharyngeal dysphagia s/p G tube placement as well as multiple exchanges, GERD c/besophagitis, Farrell's esophagus and esophageal stricture (s/p serial EGD with dilations) who present to discuss therapeutic options. Per chart review, she underwent operative fixation of her left femoral neck fracture in early 2022 and was discharged home. At home, she was found obtunded at home by her with hypoxia, evidence of aspiration pneumonia bilaterally on CT scan and with a reduced LVEF and shock, felt multifactorial cardiogenic and distributive. She had a complicated hospital course (admitted for ~6 weeks). During this time, she underwent CT coronaries which excluded an ischemic cause of her cardiomyopathy. She also underwent placement of G tube due to esophageal stricture/dysmotility and severe oropharyngeal dysphagia felt to be underlying severe chronic aspiration leading to pneumonia. She was ultimately discharged in mid-september. Following her discharge, she began undergoing serial EGD with dilations per GI. Most recently, on 11/05/23 her endoscopy was notable for severe stricturing at ~ 25cm from the incisors with inability to pass the ultra slim scope and dilation using savory dilators 6mm-7mm-8mm at which time a proximal rent was noted and further dilation was not pursued. Today she reports she is only able to take liquids including water and tomato soup. She is otherwise using her G-tube to maintain her weight. She has not been able to eat normal food and almost a year and is very frustrated by this. She denies dyspnea, cough, hemoptysis, wheeze, chest pain, fever, chills, nausea, vomiting, dysphagia to liquids, weight loss. She is a former smoker with an approximate 13-[id number]-[id number] history, quit 4 years ago. She adamantly denies alcohol use or history of alcohol use and denies recreational drug use despite the documentation throughout her chart. 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 She states she is active during the day via chores (dishs, laundry,etc), sit to stands exercises however she would not be able to climb 2 flights or walk a mile on the flat 2/2 leg weakness. Past Medical History: Patient Active Problem List Diagnosis Date Noted Stress-induced cardiomyopathy 01/15/2023 Neuroleptic-induced parkinsonism 02/24/2022 Bipolar disorder 02/12/2022 BMI 37.0-37.9, adult 12/13/2014 T2DM (type 2 diabetes mellitus) 12/12/2014 GERD (gastroesophageal reflux disease) 03/15/2013 Farrell's esophagus 03/15/2013 Past Medical History: Diagnosis Date Aspiration, chronic pulmonary Bipolar disorder 02/12/2022 COPD (chronic obstructive pulmonary disease) DM (diabetes mellitus) Esophageal stricture Neuroleptic induced parkinsonism NSTEMI (non-ST elevated myocardial infarction) Oropharyngeal dysphagia Takotsubo cardiomyopathy 2022 Past Surgical History: Past Surgical History: Procedure Laterality Date HIP ARTHROPLASTY Left IR G-TUBE CHECK/CHANGE 11/27/2022 IR G-Tube Check/Change 11/27/2022 Hang Cooper, ROSLYN [facility] RAD IR G-TUBE CHECK/CHANGE 03/10/2023 IR G-Tube Check/Change 03/10/2023 Richard Chambers DO [facility] IR G-TUBE CHECK/CHANGE 04/06/2023 IR G-Tube Check/Change 04/06/2023 Gavin Carrillo MD [facility] IR G-TUBE CHECK/CHANGE 05/09/2023 IR G-Tube Check/Change [facility] IR G-TUBE CHECK/CHANGE 07/09/2023 IR G-Tube Check/Change [facility] RAD IR G-TUBE CHECK/CHANGE 09/17/2023 IR G-Tube Check/Change 09/17/2023 Hang Cooper PA [facility] IR G-TUBE CHECK/CHANGE 10/14/2023 IR G-Tube Check/Change 10/14/2023 Moustapha Hart MD [facility] IR G-TUBE PLACEMENT 09/11/2022 IR G-Tube Placement 09/11/2022 Moustapha Hart MD [facility] IR SUTURE RELEASE 09/25/2022 IR Suture Release 09/25/2022 Yoselin Ghosh PA [facility] PERCUTANEOUS GASTROSTOMY N/A 09/11/2022 PERCUTANEOUS GASTROSTOMY performed by Aiden Flores MD at [facility] CATY PRO COLONOSCOPY, BIOPSY N/A 03/20/2016 COLONOSCOPY FLEXIBLE, WITH BX performed by David Dejesus MD at [facility] ENDOSCOPY PRO COLONOSCOPY, DIAGNOSTIC N/A 03/01/2020 COLONOSCOPY, DIAGNOSTIC performed by David Dejesus MD at [facility] ENDOSCOPY PRO DILATE ESOPHAGUS N/A 11/05/2023 EGD-DILATATION BY SOUND OR BOUGIE, SINGLE OR MULTIPLE PASSES (WRVU 1.28) performed by David Dejesus MD at [facility] ENDOSCOPY PRO ENDOSCOPIC US EXAM, ESOPH N/A 03/31/2022 UPPER EUS- ENDOSCOPIC ULTRASOUND performed by aDvid Dejesus MD at [facility] ENDOSCOPY PRO UP GI ENDOSCOPY, BALL DIL, 30MM N/A 12/24/2022 EGD,WITH DILATION ESOPHAGUS WITH BALLOON,< 30 MM (WRVU 2.67) performed by David Dejesus MDat [facility] ENDOSCOPY PRO UP GI ENDOSCOPY, BALL DIL, 30MM N/A 01/12/2023 EGD,WITH DILATION ESOPHAGUS WITH BALLOON,< 30 MM (WRVU 2.67) performed by David Dejesus [facility] ENDOSCOPY PRO UP GI ENDOSCOPY, BALL DIL, 30MM N/A 02/26/2023 EGD,WITH DILATION ESOPHAGUS WITH BALLOON,< 30 MM (WRVU 2.67) performed by David Dejesus [facility] ENDOSCOPY PRO UP GI ENDOSCOPY, BALL DIL, 30MM N/A 03/16/2023 EGD,WITH DILATION ESOPHAGUS WITH BALLOON,< 30 MM (WRVU 2.67) performed by David Dejesus [facility] ENDOSCOPY PRO UP GI ENDOSCOPY, BALL DIL, 30MM N/A 03/30/2023 EGD,WITH DILATION ESOPHAGUS WITH BALLOON,< 30 MM (WRVU 2.67) performed by David Dejesus [facility] ENDOSCOPY PRO UP GI ENDOSCOPY, BALL DIL, 30MM N/A 04/30/2023 EGD,WITH DILATION ESOPHAGUS WITH BALLOON,< 30 MM (WRVU 2.67) performed by David Dejesus [facility] ENDOSCOPY PRO UP GI ENDOSCOPY, BALL DIL, 30MM N/A 06/01/2023 EGD,WITH DILATION ESOPHAGUS WITH BALLOON,< 30 MM (WRVU 2.67) performed by David Dejesus [facility] ENDOSCOPY PRO UP GI ENDOSCOPY, BALL DIL, 30MM N/A 08/02/2023 EGD,WITH DILATION ESOPHAGUS WITH BALLOON,< 30 MM (WRVU 2.67) performed by David Dejesus [facility] ENDOSCOPY PRO UP GI ENDOSCOPY, DILATN W GUIDE N/A 10/07/2023 EGD-ESOPHOGEAL DILATATION OVER GUIDE WIRE (WRVU 2.91) performed by David Dejesus MD at [facility] ENDOSCOPY PRO UP GI ENDOSCOPY, DILATN W GUIDE N/A 11/05/2023 EGD-ESOPHOGEAL DILATATION OVER GUIDE WIRE (WRVU 2.91) performed by David Dejesus MD at [facility] ENDOSCOPY PRO UPPER GI ENDOSCOPY, BIOPSY N/A 04/03/2014 UPPER GASTROINTESTINAL ENDOSCOPY,WITH BIOPSY SINGLE OR MULTIPLE performed by David Dejesus [facility] ENDOSCOPY PRO UPPER GI ENDOSCOPY, BIOPSY N/A 03/20/2016 EGD WITH BIOPSY performed by David Dejesus MD at [facility] ENDOSCOPY PRO UPPER GI ENDOSCOPY, BIOPSY N/A 11/22/2018 EGD WITH BIOPSY (WRVU 2.49) performed by David Dejesus MD at [facility] ENDOSCOPY PRO UPPER GI ENDOSCOPY, BIOPSY N/A 03/01/2020 UPPER GASTROINTESTINAL ENDOSCOPY,WITH BIOPSY SINGLE OR MULTIPLE (WRVU 2.49) performed by David Dejesus MD at [facility] ENDOSCOPY PRO UPPER GI ENDOSCOPY, BIOPSY N/A 09/23/2021 EGD WITH BIOPSY (WRVU 2.49) performed by David Dejesus MD at [facility] ENDOSCOPY PRO UPPER GI ENDOSCOPY, BIOPSY N/A 03/31/2022 EGD WITH BIOPSY (WRVU 2.49) performed by David Dejesus MD at [facility] ENDOSCOPY PRO UPPER GI ENDOSCOPY, BIOPSY N/A 07/03/2022 EGD WITH BIOPSY (WRVU 2.49) performed by David Dejesus MD at [facility] ENDOSCOPY PRO UPPER GI ENDOSCOPY, DIAGNOSTIC N/A 04/03/2014 EGD, UPPER GI ENDOSCOPY performed by David Dejesus MD at [facility] ENDOSCOPY PRO UPPER GI ENDOSCOPY, DIAGNOSTIC N/A 03/01/2020 EGD, UPPER GI ENDOSCOPY performed by David Dejesus MD at [facility] ENDOSCOPY PRO UPPER GI ENDOSCOPY, DIAGNOSTIC N/A 09/09/2022 EGD, UPPER GI ENDOSCOPY (WRVU 2.09) performed by Ayo Russ MD at [facility] MAIN OR Medications: Outpatient Medications Marked as Taking for the 12/07/23 encounter (Office Visit) with Raissa Diallo MD Medication Sig Dispense Refill DULoxetine DR (Cymbalta) [...] glucose meter kit. 1 each 0 Insulin Ada, Disposable, (BD INSULIN PEN NEEDLE UF MINI) 31 x 3/16 Needle 1 Device by [facility]Non-Drug; Combo Route) route 3 times daily as needed. 100 each 11 Allergies: Allergies Allergen Reactions Meperidine Hcl Nausea And Vomiting CIS - violently ill Metformin Other (See Comments) Severe diarrhea Family History: Family History Problem Relation Age of Onset Esophageal Cancer Mother Cancer Father unknown type Social History: Social History Socioeconomic History Marital status: Spouse name: Not on file Number of children: Not on file Years of education: Not on file Highest education level: Not on file Occupational History Not on file Tobacco Use Smoking status: Former Current packs/day: 0.00 Types: Cigarettes Start date: 02/26/2010 Quit date: 02/26/2021 Years since quittin.7 Smokeless tobacco: Never Tobacco comments: 1PPD x 40 years, quit 4 yearaago Substance and Sexual Activity Alcohol use: Not [...] on file Housing Stability: Not on file REVIEW OF SYSTEMS: General: Denies fatigue, weight loss, chills, night sweats Neuro: Denies seizure, TIA, CVA, DAVIS, visual changes, diplopia. +baseline weakness in extremities Psychiatric: Denies psychiatric diagnoses Cardiovascular: Denies arrythmias, CAD, HTN, family history of cardiac disease, CHF, hyperlipidemia. +h/o stress induced cardiomyopathy, NSTEMI Respiratory: Denies asthma, cough, dyspnea, wheezing, stridor, hemoptysis, TB or exposure to TB. COPD with most recent exacerbation in 06/2023, h/o hypoxic hypercarbic respiratory failure in the setting of chronic aspiration GI: denies change in bowel habits- : denies change in voiding habits Hematologic: Denies history of DVT, PE Endocrine: denies thyroid disease. +IDDM Musculoskeletal: Denies fractures, arthritis Integument: Denies skin cancer. Other: patient adamantly denies alcohol use disorder or history of as well as pancreatitis- howeverthis is stated multiple times throughout her chart Physical Exam: BP 115/67 (Patient Position: Sitting) Pulse 56 Temp 36.4 ??C (97.5 ??F) (Temporal) Resp 17 Ht 155 cm (5' 1.02) Wt 63.4 kg (139 lb 12.4 oz) SpO2 99% BMI 26.39 kg/m?? General Appearance: Alert, cooperative, no distress, appears stated age, difficulty stepping onto exam table HEENT: PERRL, MMM, non-icteric Neck: Supple, symmetrical, trachea midline, no palpable cervical adenopathy; thyroid: not enlarged,symmetric, no tenderness/mass/nodules; no carotid bruit or JVD Lungs: Clear to auscultation b/l, respirations unlabored, no wheezes, crackles or ronchi. Heart: Regular rate and rhythm, S1 and S2 normal, no murmur, rub, or gallop Abdomen: Soft, non-tender, bowel sounds normo-active in all four quadrants, no masses or organomegaly on limited exam. G tube in place Extremities: Extremities normal, no cyanosis, clubbing. no edema Neurologic: A+Ox3, cranial nerves II-XII grossly intact Musculoskeletal: 5/5 throughout with normal gait Diagnostics: I have independently visualized all relevant imaging studies, including: EGD (11/05/23): The examined esophagus was normal until 25 cm where the patient's known stricture was virtualized. We could not pass the Ultraslim scope through the stricture. We placed a Savary dilator under direct visualization through the stricture and then dilated using a 6-7-8 mm dilator. We then evaluated again endoscopically and there was a proximal rent and we decided not to pursue further dilation. ECHO (07/05/23); PFT (12/07/23): Assessment: This is a 63 y.o. female with significant cardiac history and severe esophageal stricturing undergoing serial EGD with dilation per GI. She is possibly a surgical candidate pending additional cardiac eval/workup and improvement in functional status. Plan of Management: Follow up with Dr. Hernandez for formal cardiac risk stratification 2. Discussed multiple approach possibilities including patch Esophagoplasty (Porcine extracellular matrix (review papers from ), esophagectomy and Heineke-Mikulicz closure. Patient interested in operative fixation if able 3. Discuss EGD results/findings with Dr. Dejesus (any other areas of stricturing) 4. CMP/lipase/amylase- eval liver and pancreatic function given conflicting information in chart versus patient reports regarding history of ETOH use and chronic pancreatitis 5. Follow up with all other appt as scheduled 6. 30 minutes of aerobic exercise daily, at minimum. Start slow and work up- 10 minutes 3x daily and work toward full 30 minutes straight. Continue sit to stands, chair aerobic exercises, arm exercises (can use cans of food to start), for every 10 minutes, do 2 minutes of exercise/walking 7. Patient instructed to call us once she feels her functional status has improved 8. Call with any questions Alla Bowden PA-C 12/07/2023 Thoracic Surgery [facility] I have seen the patient and reviewed the PA/resident's above history and I agree with the details as written. The assessment and plan were formulated in discussion with me and I agree with them as documented. Assessment: This is a 63 y.o. female with significant cardiac history and severe esophageal stricturing undergoing serial EGD with dilation per GI with inability to make any progress. She is possiblya surgical candidate pending additional cardiac eval/workup and improvement in functional status. Plan of Management: 1. Follow up with Dr. Hernandez for formal cardiac risk stratification -- she will need to either have a stricturoplasty with patch or an esophagectomy, both of which will be high risk surgeries. 2. Discussed multiple approach possibilities including patch Esophagoplasty (Porcine extracellular matrix (review papers from ), esophagectomy or Heineke-Mikulicz closure. Patient interestedin operative fixation if able. She is not a candidate currently as her functional status would makeher too high risk 3. Discuss EGD results/findings with Dr. Dejesus (any other areas of stricturing distal to where hehas dilated as that would change surgical approach) 4. CMP/lipase/amylase- eval liver and pancreatic function given conflicting information in chart versus patient reports regarding history of ETOH use and chronic pancreatitis 5. Follow up with all other appt as scheduled 6. 30 minutes of aerobic exercise daily, at minimum. Start slow and work up- 10 minutes 3x daily and work toward full 30 minutes straight. Continue sit to stands, chair aerobic exercises, arm exercises (can use cans of food to start), for every 10 minutes, do 2 minutes of exercise/walking 7. Patient instructed to call us once she feels her functional status has improved -- I would expect at least 8 weeks of a formal exercise program as well as increasing her overall activity before she will be able to tolerate this type of surgery 8. Call with any questions RICHARD DIALLO MD documented in this encounter Plan of Treatment Upcoming Encounters Date Type Department Care Team (Late st Contact Info) Description 03/10/2024 4:00 PM EDT Office Visit Cardiology at [address] [phone] Milagros Hernandez MD [facility] [address] Scheduled Orders Name Type Priority Associated Diagnoses Orde r Schedule Comprehensive metabolic panel (non-fasting) Lab Routine History of chronic pancreatitis Expected: 12/07/2023, Expires: 03/06/2024 Lipase Lab Routine History of chronic pancreatitis Expected: 12/07/2023, Expires: 2024 Amylase Lab Routine History of chronic pancreatitis Expected: 12/07/2023, Expires: 2024 Scheduled Procedures Name Priority Associated Diagnoses Date/Ti pa EGD, UPPER GI ENDOSCOPY (WRV U 2.09) Peptic stricture of esophagus documented as of this encounter Visit Diagnoses Diagnosis History of chronic pancreatitis Personal history of other diseases of digestive system Esophageal stricture Stricture and stenosis of esophagus documented in this encounter Care Teams Manager Travel Relationship Specialty Start Date End Date Ana Gillespie APRN [address] [place] [address] PCP - General Family Medicine 02/03/19 documented as of this encounter
--- OUTSIDE RECORDS SUMMARY | 2024-02-05 12:43 | XMS_ITS | Clinical Summary ---
Author Organization [facility] Address [facility] [place] [address] Care Team Providers Care Repertoire Manager Name Role Phone Ana Gillespie VAUGHN Primary Care Provider [phone] Allergies Active Allergy Reactions Criticality Noted Date Comments Meperidine Hcl Nausea And Vomiting Low CIS - violently ill Metformin Other (See Comments) Low 09/23/2021 Severe diarrhea Medications Medication Sig Dispensed Refills Start Date End Date Status Insulin [place], Disposable, (BD INSULIN PEN NEEDLE UF [...] adjustable rolling walker 1 kit 05/25/2023 Active Additional Information Patient not taking.Reported on 12/07/2023 ciprofloxacin (Cipro) 500 mg tablet Take 1 [...] Active Problems Problem Noted Date Diagnosed Date History of chronic pancreatitis 12/09/2023 Esophageal stricture 12/09/2023 Overview (12/09/2023): Very tight at 25 cm per EGD Stress-induced cardiomyopathy 01/15/2023 Neuroleptic-induced parkinsonism 02/24/2022 Assessment [...] Encounters Date Type Department Care Team Description 01/19/2024 Telephone Gastroenterology at [place] [phone] Chiquita James, RN 12/20/2023 Orders Only Thoracic Surgery at [place] [phone] Deborah Gallo, PA Esophageal stricture; Gastroesophageal reflux disease, unspecified whether esophagitis present; Farrell's esophagus without dysplasia 12/13/2023 Telephone Endocrinology at [place] [phone] Kiko Ashley 12/13/2023 Refill [place] [address] Elsie Erickson APRN 12/07/2023 2:00 PM EDT Office Visit Thoracic Surgery at [place] [phone] Geronimo Mojica MD History of chronic pancreatitis; Esophageal stricture 12/07/2023 12:24 PM EDT - 12/07/2023 11:59 PM EDT Hospital Encounter Pulmonology at [place] [phone] Hypoxemia Discharge Disposition: Home 12/07/2023 Travel 11/17/2023 8:40 AM EDT Office Visit Cardiology at [place] [phone] Milagros Hernandez MD Stress-induced cardiomyopathy 11/17/2023 Travel 11/05/2023 8:36 AM EDT Anesthesia Event [place] [address] Daryl Carmona MD 11/05/2023 8:30 AM EDT - 11/05/2023 9:00 AM EDT Surgery Gastroenterology at [place] [phone] David Dejesus MD EGD-DILATATION BY SOUND OR BOUGIE, SINGLE OR MULTIPLE PASSES (WRVU 1.28) 11/05/2023 6:41 AM EDT - 11/05/2023 9:54 AM EDT Hospital Encounter Gastroenterology at [place] [phone] David Dejesus MD Discharge Disposition: Home 11/05/2023 Orders Only Gastroenterology at [place] [phone] David Dejesus MD Peptic stricture of esophagus 11/05/2023 Orders Only Gastroenterology at [place] [phone] David Dejesus MD Peptic stricture of esophagus from Last 3 Months Family History Medical History Relation Comments Cancer Father unknown type Esophageal Cancer Mother Relation Status Comments Father Mother Social History Tobacco Use Types Packs/Day Years [...] Mass Index 26.39 12/07/2023 11:43 AM EDT Plan of Treatment Upcoming Encounters Date Type Department Care Team (Late st Contact Info) Description 03/10/2024 4:00 PM EDT Office Visit Cardiology at [address] [phone] Milagros Hernandez MD [facility] [place] [address] Scheduled Procedures Name Priority Associated Diagnoses Date/Ti me EGD, UPPER GI ENDOSCOPY (WRV U 2.09) Peptic stricture of esophagus Health Maintenance Due Date Last Done Comments CT Colonography 1960 FIT DNA 1960 FIT 1960 Sigmoidoscopy 1960 Pneumococcal Vaccine: At-Ris k 5-64yrs (1 of 2 - PCV) 1966 DM Opthalmology Exam 1970 HIV screen 1978 Hepatitis C Screening 1978 Tetanus/Diphtheria/Pertussis Vaccines (1 - Tdap) 1979 HPV test 1990 PAP Smear 1990 Breast Cancer Share Decision Needed 2000 Zoster vaccine (1 of 2) 2010 DM Urine Microalbumin yearly 12/14/2015 12/13/2014 Breast Cancer screening 07/02/2016 07/02/2014 DM Hemoglobin A1c 6 month 02/14/2023 08/15/2022, 10/2014 DM Creatinine yearly 09/26/2023 09/25/2022, 09/24/2022, 09/23/2022, Additional history exists Influenza (Flu) vaccine (1 o f 1 - Influenza standard series) 01/09/2024 Colonoscopy 03/01/2025 03/01/2020, 02/08, 03/20/2016, Additional history exists Colorectal Cancer Screening 03/01/2025 Sigmoidoscopy (10 year) with FIT yearly 03/01/2030 03/01/2020, 03/01/2020, 03/20/2016, Additional history exists Lipid Screening Discontinued 08/29/2022 Covid-19 Vaccine Completed 02/24/2023, , 11/06/2021, Additional history exists Medical Devices Implanted Type Area Trade [employer] Secretary Device Identifier Shelf Expiration Date Model / Serial / Lot Other Implanted:Qty: 3 Other Left: Hip Description:three screws lef t hip Procedures Procedure Name Priority Date/Time Associated Diagnosis Comments COMMON PULMONARY FUNCTION TEST Routine 12/07/2023 12:35 PM EDT Hypoxemia Up Gi Endoscopy, Dilatn W Guide (09804) 11/05/2023 8:34 AM EDT Peptic stricture of esophagus Dilate Esophagus (31599) 11/05/2023 8:34 AM EDT Peptic stricture of esophagus POCT GLUCOSE Routine 11/05/2023 7:50 AM EDT UPPER GI ENDOSCOPY Routine 11/05/2023 6: 55 AM EDT BASIC METABOLIC PANEL Routine 09/25/2022 3:11 AM EDT LIPID PANEL (REFLEX DIRECT LDL) Routine 08/29/2022 4:48 AM EDT HEMOGLOBIN A1C Routine 08/15/2022 3:05 AM EDT COLONOSCOPY Routine 03/01/2020 7:22 AM EDT U ALBUMIN/CRE RATIO STAT 12/13/2014 1 2:33 PM EDT Diabetes mellitus type 2, uncontrolled MAMMO 2D DIGITAL SCREEN EDUARD BILATERAL Routine 07/02/2014 1:12 PM EST from Last 3 Months or Most Recently Relevant to Health Maintenance Results * Common Pulmonary Function Test (12/07/2023 12:35 PM EDT) FVC Actual Pre-BD 2.29 L COMPAS PFT FVC Pre-BD % of Predicted 86 % COMPAS PFT FVC Predicted 2.65 L COMPAS PFT FVC Lower Limits of Normal 1.98 L COMPAS PFT FVC Pre-BD Z-Score -0.88 COMPAS PFT FEV1 Actual Pre-BD 1.80 L COMPAS PFT FEV1 Pre-BD % of Predicted 86 % COMPAS PFT FEV1 Predicted 2.1 L COMPAS PFT FEV1 Lower Limits of Normal 1.57 L COMPAS PFT FEV1 Pre-BD Z-Score -0.94 COMPAS PFT FEV1 / FVC Actual Pre-BD 79 % COMPAS PFT FEV1/FVC Pre-BD Z-Score -0.14 COMPAS PFT JSM59-08 Actual Pre-BD 1.66 % COMPAS PFT PKA19-43 Predicted 1.94 % COMPAS PFT ZFK58-32 Pre-BD % of Predicted 86 % COMPAS PFT NLD78-76 Pre-BD Z-Score -0.41 COMPAS PFT DLCO Hb Actual Pre-BD 10.02 mL/min/mmHg COMPAS PFT DLCO Hb Pre-BD % of Predicted 57 % COMPAS PFT DLCO Hb Predicted 17.58 mL/min/mmHg COMPAS PFT DLCO Hb Pre-BD Z-Score -3.29 COMPAS PFT DLCO [facility] ACT PRE-BD 10.17 mL/min/mmHg COMPAS PFT DLCO UNC PRE-BD % of PRED 58 % COMPAS PFT DLCO [facility] Predicted 17.58 mL/min/mmHg COMPAS PFT DLCO [facility]C PRE-BD Z-SCORE -3.21 COMPAS PFT Narrative COMPAS PFT - 12/07/2023 12:35 PM EDT FINDINGS: FEV1, FVC, and FEV1/VC are within normal limits. Diffusion capacity not adjusted for hemoglobin is reduced. IMPRESSION: Normal spirometry. Moderate reduction in diffusing capacity (DLCO 40 to 60%). Isolated reduced DLCO suggests the possibility of disease of the pulmonary vasculature, early emphysema, early interstitial disease, anemia, or carboxyhemoglobinemia/heavy tobacco smoking. There is no significant desaturation with ambulation. Procedure Note Liana Kam MD - 12/07/2023 FINDINGS: FEV1, FVC, and FEV1/VC are within normal limits. Diffusioncapacity not adjusted for hemoglobin is reduced. IMPRESSION: Normal spirometry. Moderate reduction in diffusing capacity(DLCO 40 to 60%). Isolated reduced DLCO suggests the possibility of disease of the pulmonaryvasculature, early emphysema, early interstitial disease, anemia, orcarboxyhemoglobinemia/heavy tobacco smoking. There is no significant desaturation with ambulation. Noe Meredith MD PFT ORDERABLES Performing Organization Address City/[facility] Co de Phone Number COMPAS PFT * POCT Glucose (11/05/2023 7:50 AM EDT) [facility] Glucose, POC 86 65 - 199 mg/dL [facility] Comment: Supplemental ranges: <140 mg/dL before meals <180 mg/dL all other times of the day Blood 11/05/2023 7:50 AM EDT 11/05/2023 7:50 AM EDT David Dejesus MD POINT OF CARE TEST ORDERABLES Performing Organization Address [facility] de Phone Number [facility] [place] [address] * UPPER GI ENDOSCOPY (11/05/2023 6:55 AM EDT) [facility] UPPER GI ENDOSCOPY [facility] Endoscopy Procedure Date: 11/05/2023 6:55 AM ? Patient Name: Jennifer Irving ? Date of : 1960 ? Age: 63 ? Order #: [id number] ? Instrument Name: [id number] ? Procedure: ? Upper GI endoscopy Indications: [...] APRN GENERAL SURGICAL ORD ERABLES [employer]ATION * (ABNORMAL) Basic Metabolic Panel (non-fasting) (09/25/2022 3:11 AM EDT) Glucose 187 65 - 199 mg/dL [facility] Comment:Diabetes: >=200 mg/d L plus symptoms Blood Urea Nitrogen 32(H) 8 - 18 mg/dL [facility] Creatinine 0.62(L) 0.70 - 1.20 mg/dL [facility] Sodium 142 135 - 145 mmol/L [facility] Potassium 4.6 3.5 - 5.0 mmol/L [facility] Comment: Please note: ??Patients with WBC >100,000 may have falsely elevated Potassium levels. ??For accurate Potassium quantification in these patients send serum separator tube (gold top) for subsequent determinations. ??Contact the Clinical Chemistry Laboratory if there are any questions. Chloride 103 98 - 107 mmol/L [facility] Carbon Dioxide 31 22 - 31 mmol/L [facility] Anion Gap 8 5 - 15 mmol/L [facility] Calcium 9.8 8.5 - 10.5 mg/dL [facility] Est Glomerular Filtration Rate 101 >=60 mL/min/1. 73 m?? [facility] Comment: This patient's estimated GFR [...] In Lab Geronimo Pascal MD CHEMISTRY ORDERABLES [facility] [address] * Lipid Panel (Reflex Direct LDL) (08/29/2022 4:48 AM EDT) Cholesterol, Total 110 mg/dL [facility] Comment: Lower Risk: <200 mg/dL Average Risk: 200-239 mg/dL Higher Risk: >pc=756 mg/dL Triglyceride 127 mg/dL [facility] Comment: Average Risk/Lower Risk: <150 mg/dL Borderline High Risk: 150-199 mg/dL High Risk: 200-499 mg/dL Very High Risk: >oy=758 mg/dL HDL Cholesterol 34 mg/dL [facility] Comment: Males: ?? Higher Risk: <40 mg/dL Females: ?? Higher Risk: <50 mg/dL LDL Cholesterol 51 mg/dL [facility] Comment: Lowest Risk: <100 mg/dL Lower Risk: 100-129 mg/dL Borderline High Risk: 130-159 mg/dL High Risk: 160-189 mg/dL Very High Risk: >rc=702 mg/dL Cholesterol/HDL Ratio 3.2 ratio [facility] Lipid Interpretation See Note [facility] Comment: Lipid management should be guided by a patient? s ASCVD risk, goals and preferences. ACC/AHA Guidelines recommend high intensity statin if clinical ASCVD or LDL greater than or equal to 190 mg/dL. http://tinyurl.com/IHH-FLW-Bdiwutyem Adults aged 40-75 with LDL 70-189 mg/dL should have their 10 year ASCVD risk estimated with the ACC/AHA ASCVD risk slip cover estimator http://tools.acc.org/HCYCU-Wxmb-Mcjdzacvf/ Statin should be discussed if risk greater [...] In Lab Milagros Hernandez MD CHEMISTRY ORDERABLES [facility] [place] [address] * (ABNORMAL) Hemoglobin A1c (08/15/2022 3:05 AM EDT) Hemoglobin A1c 6.2(H) 4.3 - 5.6 % [facility] Comment: Reference Range: 4.3 - 5.6% [...] Mellitus, Diabetes Care 2013; 36: Suppl. 1, Y76-62 Estimated Average Glucose 130 mg/dL [facility] Comment: eAG equivalents for HbA1c percentages: [...] into estimated average glucose values. ??Diabetes Care 2008:31(8):9057-7784. Blood 08/15/2022 3:05 AM EDT 08/15/2022 3:16 AM EDT Narrative Resulting Agency Comment Spec In Lab Carlos Terry MD CHEMISTRY ORDERABLES [facility] [place] [address] * COLONOSCOPY (03/01/2020 7:22 AM EDT) COLONOSCOPY [facility] Endoscopy Procedure Date: 03/01/2020 7:22 AM ? Patient Name: Jennifer Irving ? Date of : 1960 ? Age: 59 ? Order #: [id number] ? Instrument Name: [id number] ? Procedure: ? Colonoscopy Indications: ? Screening for colorectal malignant ? neoplasm Providers: ? David Dejesus MD, Elizabeth Celis, ? RN, Eligio Sadler RN Referring : ?Ana Gillespie Medicines: ? Monitored Anesthesia Care [...] GENERAL SURGICAL ORD ERABLES Performing Organization Address City/[facility] Co de Phone Number [employer]OVATION * Microalbumin, urine, random (12/13/2014 12:33 PM EDT) Creatinine, Urine 284 mg/dL [facility] RNER MILLENNIUM Albumin, Urine 258.4 mg/L CERNE R MILLENNIUM Albumin / Creatinin Ratio, Urine 91 mcg/mg Cr [facility]ERNER MILLENNIUM Comment: Reference Range* Random collection (mcg/mg creatinine) Normal ?<30 Microalbuminuria ?? 30 - 300 Clinical Albuminuria ?? >300 *[place] Diabetes Association. Diabetic Nephropathy. Diabetes Care 1997;(Suppl 1):S24-S27 Exercise within 24 hour, infection, fever, CHF, marked hyperglycemia, and marked hypertension may elevate urinary albumin excretion over baseline values. Urine specimen (specimen) 12/13/2014 12:33 PM EDT 12/13/2014 12:39 PM EDT Narrative Resulting Agency Comment Spec In Lab Moustapha Agosto MD URINE ORDERABLES Performing Organization Address City/[facility] Co de Phone Number DARCY BARNETT * Mammography Screen Eduard 2D Bilateral (07/02/2014 [...] Documents on File Type Date Recorded Patient Energy Trading Analyst Expl anation Advance Directives and Dominic sandoval Will 09/11/2022 11:52 AM 09/11/2022 * Attempt [...] Status decision made by: Patient Care Teams Repertoire Manager Relationship Specialty Start Date End Date Ana Gillespie APRN [address] [place] [phone] PCP - General Family Medicine 02/03/19
--- OUTSIDE RECORDS SUMMARY | 2024-02-05 12:43 | XMS_ITS | Encounter Summary ---
Author Organization [place] [address] Care Team Providers Care Crew Truck Driver Name Role Phone Ana Gillespie VAUGHN Primary Care Provider [phone] Reason for Referral * Diagnostic Test (Routine) - Closed Specialty Diagnoses / Procedures Referred By Esperanza t Referred To Contact Radiology Diagnoses Problem with gastrostomy tube Farrell's esophagus with high grade dysplasia Farrell's esophagus with low grade dysplasia Procedures IR G-Tube Check/Change Hang Cooper PA [facility] DR [place]VENTION[place] [address] [place] [address] Referral ID Status Reason Start Date Expiration Date V isits Requested Visits Authorized [id number] Closed Specialty Service Requested 09/23/2023 03/25/2025 1 1 Reason for Visit * Diagnostic Test (Routine) - Closed Specialty Diagnoses / Procedures Referred By Esperanza t Referred To Contact Radiology Diagnoses Problem with gastrostomy tube Farrell's esophagus with high grade dysplasia Farrell's esophagus with low grade dysplasia Procedures IR G-Tube Check/Change Hang Cooper PA [facility] [place] [address] [place] [address] Referral ID Status Reason Start Date Expiration Date V isits Requested Visits Authorized [id number] Closed Specialty Service Requested 09/23/2023 03/25/2025 1 1 Encounter Details Date Type Department Care Team (Latest Contact Info) Description 10/14/2023 10:11 AM EDT - 10/14/2023 11:59 PM EDT Hospital [place] [address] Geronimo Chambers, [facility] [place] [address] Problem with gastrostomy tube; Farrell's esophagus with [...] meter kit. 1 each 0 12/14/2014 Insulin [place], Disposable, (BD INSULIN PEN NEEDLE UF MINI) 31 x 3/16 NeedleIndications:Josefina betes mellitus type 2, uncontrolled 1 Device by Misc.(Non-Drug; Combo Route) route 3 times daily as needed. 100 each 11 12/13/2014 documented as of this encounter Progress Notes * Sergey Moraes RN - 10/10/2023 10:50 AM EDT [facility] NURSING DATABASE Name: Jennifer Irving Date of : 1960 AGE: 63 y.o. Address: [address] [address] (home) Mobile: Telephone Information: Referring Provider: Hang Cooper REASON FOR VISIT: Order Questions Answers Where will study be performed? [facility] Radiology [120] To be scheduled Next available [...] Patient's reports that she was evaluated at [facility] for possible PNA, and [...] on 09/16 due to occlusion. [place]ed to [place] where tube could not be flushed. Exchanged [...] IR G-Tube Check/Change 11/27/2022 Hang Cooper PA [facility] INTERVENTIONL RAD IR G-TUBE CHECK/CHANGE 03/10/2023 IR G-Tube Check/Change 03/10/2023 Geronimo Chambers DO [facility] INTERVENTIONL RAD IR G-TUBE CHECK/CHANGE 04/06/2023 IR G-Tube Check/Change 04/06/2023 Gavin Carrillo MD [facility] INTERVENTIONL RAD IR G-TUBE CHECK/CHANGE 05/09/2023 IR G-Tube Check/Change [facility] INTERVENTIONL RAD IR G-TUBE CHECK/CHANGE 07/09/2023 IR G-Tube Check/Change [facility] INTERVENTIONL RAD IR G-TUBE CHECK/CHANGE 09/17/2023 IR G-Tube Check/Change 09/17/2023 Hang Cooper PA [facility] INTERVENTIONL RAD IR G-TUBE PLACEMENT 09/11/2022 IR G-Tube Placement 09/11/2022 Moustapha Hart MD [facility] INTERVENTIONL RAD IR SUTURE RELEASE 09/25/2022 IR Suture Release 09/25/2022 Yoselin Ghosh PA [facility] INTERVENTIONL RAD PERCUTANEOUS GASTROSTOMY N/A 09/11/2022 PERCUTANEOUS GASTROSTOMY performed by Aiden Flores MD at [facility] CATY PRO COLONOSCOPY, BIOPSY N/A 03/20/2016 COLONOSCOPY FLEXIBLE, WITH BX performed by David Dejesus MD at [facility] ENDOSCOPY PRO COLONOSCOPY, DIAGNOSTIC N/A 03/01/2020 COLONOSCOPY, DIAGNOSTIC performed by David Dejesus MD at [facility] ENDOSCOPY PRO ENDOSCOPIC US EXAM, ESOPH N/A 03/31/2022 UPPER EUS- ENDOSCOPIC ULTRASOUND performed by David Dejesus MD at [facility] ENDOSCOPY PRO UP GI ENDOSCOPY, BALL DIL, 30MM N/A 12/24/2022 EGD,WITH DILATION ESOPHAGUS WITH BALLOON,< 30 MM (WRVU 2.67) performed by David Dejesus MDat [facility] ENDOSCOPY PRO UP GI ENDOSCOPY, BALL DIL, 30MM N/A 01/12/2023 EGD,WITH DILATION ESOPHAGUS WITH BALLOON,< 30 MM (WRVU 2.67) performed by David Dejesus [facility] ENDOSCOPY PRO UP GI ENDOSCOPY, BALL DIL, 30MM N/A 02/26/2023 EGD,WITH DILATION ESOPHAGUS WITH BALLOON,< 30 MM (WRVU 2.67) performed by David Dejesus [facility] ENDOSCOPY PRO UP GI ENDOSCOPY, BALL DIL, 30MM N/A 03/16/2023 EGD,WITH DILATION ESOPHAGUS WITH BALLOON,< 30 MM (WRVU 2.67) performed by David Dejesus [facility] ENDOSCOPY PRO UP GI ENDOSCOPY, BALL DIL, 30MM N/A 03/30/2023 EGD,WITH DILATION ESOPHAGUS WITH BALLOON,< 30 MM (WRVU 2.67) performed by David Dejesus [facility] ENDOSCOPY PRO UP GI ENDOSCOPY, BALL DIL, 30MM N/A 04/30/2023 EGD,WITH DILATION ESOPHAGUS WITH BALLOON,< 30 MM (WRVU 2.67) performed by David Dejesus [facility] ENDOSCOPY PRO UP GI ENDOSCOPY, BALL DIL, 30MM N/A 06/01/2023 EGD,WITH DILATION ESOPHAGUS WITH BALLOON,< 30 MM (WRVU 2.67) performed by David Dejesus [facility] ENDOSCOPY PRO UP GI ENDOSCOPY, BALL DIL, 30MM N/A 08/02/2023 EGD,WITH DILATION ESOPHAGUS WITH BALLOON,< 30 MM (WRVU 2.67) performed by David Dejesus [facility] ENDOSCOPY PRO UP GI ENDOSCOPY, DILATN W GUIDE N/A 10/07/2023 EGD-ESOPHOGEAL DILATATION OVER GUIDE WIRE (WRVU 2.91) performed by David Dejesus MD at [facility] ENDOSCOPY PRO UPPER GI ENDOSCOPY, BIOPSY N/A 04/03/2014 UPPER GASTROINTESTINAL ENDOSCOPY,WITH BIOPSY SINGLE OR MULTIPLE performed by David Dejesus [facility] ENDOSCOPY PRO UPPER GI ENDOSCOPY, BIOPSY N/A 03/20/2016 EGD WITH BIOPSY performed by David Dejesus MD at [facility] ENDOSCOPY PRO UPPER GI ENDOSCOPY, BIOPSY N/A 11/22/2018 EGD WITH BIOPSY (WRVU 2.49) performed by David Dejesus MD at [facility] ENDOSCOPY PRO UPPER GI ENDOSCOPY, BIOPSY N/A 03/01/2020 UPPER GASTROINTESTINAL ENDOSCOPY,WITH BIOPSY SINGLE OR MULTIPLE (WRVU 2.49) performed by David Dejesus MD at [facility] ENDOSCOPY PRO UPPER GI ENDOSCOPY, BIOPSY N/A 09/23/2021 EGD WITH BIOPSY (WRVU 2.49) performed by David Dejesus MD at [facility] ENDOSCOPY PRO UPPER GI ENDOSCOPY, BIOPSY N/A 03/31/2022 EGD WITH BIOPSY (WRVU 2.49) performed by David Dejesus MD at [facility] ENDOSCOPY PRO UPPER GI ENDOSCOPY, BIOPSY N/A 07/03/2022 EGD WITH BIOPSY (WRVU 2.49) performed by David Dejesus MD at [facility] ENDOSCOPY PRO UPPER GI ENDOSCOPY, DIAGNOSTIC N/A 04/03/2014 EGD, UPPER GI ENDOSCOPY performed by David Dejesus MD at [facility] ENDOSCOPY PRO UPPER GI ENDOSCOPY, DIAGNOSTIC N/A 03/01/2020 EGD, UPPER GI ENDOSCOPY performed by David Dejesus MD at [facility] ENDOSCOPY PRO UPPER GI ENDOSCOPY, DIAGNOSTIC N/A 09/09/2022 EGD, UPPER GI ENDOSCOPY (WRVU 2.09) performed by Ayo Russ MD at [facility] MAIN OR Medications: Current Outpatient Medications [...] daily. 180 tablet 3 Blood Sugar Diagnostic (GIDEEN ULTRA TEST) Strip 1 each by Other [...] glucose meter kit. 1 each 0 Insulin [place], Disposable, (BD INSULIN PEN NEEDLE UF MINI) 31 x 3/16 Needle 1 Device by [facility]Non-Drug; Combo Route) route 3 times daily as [...] Patient's reports that she was evaluated at [facility] for possible PNA, and [...] on 09/16 due to occlusion. [place]traveled to [place] where tube could not be flushed. Exchanged [...] tube removed over the wire. A new16 Faroese balloon retained nonlow-profile gastrostomy tube was then [...] 4:00 PM EDT Office Visit Cardiology at [address] [phone] Milagros Hernandez MD [facility] [place] [address] Scheduled Procedures Name Priority Associated Diagnoses Date/Ti [...] Patient's reports that she was evaluated at [facility] for possible PNA, and [...] 09/16 due to occlusion. Patient traveled to [place] where tube could not be flushed. Exchanged [...] removed over the wire. ??A new 16 Faroese balloon retained nonlow-profile gastrostomy tube was then [...] esophagus Farrell's esophagus with low grade dysplasia Farerll's esophagus documented in this encounter Administered Medications [...] mLs documented in this encounter Care Teams Crew Truck Driver Relationship Specialty Start Date End Date Ana Gillespie APRN [address] [place] [address] PCP - General Family Medicine 02/03/19 documented as of this encounter
--- OUTSIDE RECORDS SUMMARY | 2024-02-05 12:43 | XMS_ITS | Encounter Summary ---
Author Organization [facility] Address [facility] [place] [address] Care Team Providers Care Fitter Placer Name Role Phone Ana Gillespie VAUGHN Primary Care Provider [phone] Reason for Referral * Consultation (Routine) - Closed Specialty Diagnoses / Procedures Referred By Esperanza rodríguez Referred To Contact Thoracic Surgery Diagnoses Peptic stricture of esophagus Peptic stricture of esophagus David Dejseus MD [facility] [place] [address] Geronimo Mojica MD [facility] [place] [address] Referral ID Status Reason Start Date Expiration Date V isits Requested Visits Authorized [id number] Closed Consult, Test & Treat 11/05/2023 11/04/2024 1 1 Encounter Details Date Type Department Care Team (Late st Contact Info) Description 11/05/2023 Orders Only Gastroenterology at [place] [phone] David Dejesus MD [facility] [place] [address] Peptic stricture of esophagus Social History Tobacco [...] 4:00 PM EDT Office Visit Cardiology at [address] [phone] Milagros Hernandez MD [facility] [place] [address] Scheduled Procedures Name Priority Associated Diagnoses Date/Ti [...] esophagus documented in this encounter Care Teams Fitter Placer Relationship Specialty Start Date End Date Ana Gillespie APRN [address] [place] [address] PCP - General Family Medicine 02/03/19 documented as of this encounter
--- OUTSIDE RECORDS SUMMARY | 2024-02-05 12:43 | XMS_ITS | Encounter Summary ---
Author Organization [facility] Address [facility] [place] [address] Care Team Providers Care Gi Tech Name Role Phone Ana Gillespie APRN Primary Care Provider Encounter Details Date Type Department Care Team (Late st Contact Info) Description 12/13/2023 Telephone [place] [phone] Kiko Ashley Social History Tobacco Use Types Packs/Day Years [...] 4:00 PM EDT Office Visit Cardiology at [address] [phone] Milagros Hernandez MD [facility] [place] [address] Scheduled Procedures Name Priority Associated Diagnoses Date/Ti me EGD, UPPER GI ENDOSCOPY (WRV U 2.09) Peptic stricture of esophagus documented as of this encounter Visit Diagnoses Not on filedocumented in this encounter Care Teams Gi Tech Relationship Specialty Start Date End Date Ana Gillespie APRN [address] [place] [address] PCP - General Family Medicine 02/03/19 documented as of this encounter
--- OUTSIDE RECORDS SUMMARY | 2024-02-05 12:43 | XMS_ITS | Encounter Summary ---
Author Organization [facility] Address [facility] [place] [address] Care Team Providers Care Drum Builder Name Role Phone Ana Gillespie VAUGHN Primary Care Provider [phone] Encounter Details Date Type Department Care Team (Latest Contact Info) Description 12/07/2023 12:24 PM EDT - 12/07/2023 11:59 PM EDT Hospital En[place] [phone] Hypoxemia Discharge Disposition: Home Social History Tobacco Use [...] Sig Dispensed Refills Start Date End Date DULoxetine DR (Cymbalta) [address] capsule Take 80 mg by mouth daily. ciprofloxacin (Cipro) 500 mg tablet Take 1 [...] meter kit. 1 each 0 12/14/2014 Insulin [place], Disposable, (BD INSULIN PEN NEEDLE UF MINI) 31 x 3/16 NeedleIndications:Josefina betes mellitus type 2, uncontrolled 1 Device by Misc.(Non-Drug; Combo Route) route 3 times daily as needed. 100 each 11 12/13/2014 documented as of this encounter Plan of Treatment Upcoming Encounters Date Type Department Care Team (Late st Contact Info) Description 03/10/2024 4:00 PM EDT Office Visit Cardiology at [address] [phone] Milagros Hernandez MD [facility] [place] [address] Scheduled Procedures Name Priority Associated Diagnoses Date/Ti me EGD, UPPER GI ENDOSCOPY (WRV U 2.09) Peptic stricture of esophagus documented as of this encounter Procedures Procedure Name Priority Date/Time Associated Diagnosis Comments COMMON PULMONARY FUNCTION TEST Routine 12/07/2023 12:35 PM EDT Hypoxemia documented in this encounter Results * Common Pulmonary Function Test (12/07/2023 [...] PFT FEV1/FVC Pre-BD Z-Score -0.14 COMPAS PFT BXG77-18 Actual Pre-BD 1.66 % COMPAS PFT [id number] Predicted 1.94 % COMPAS PFT JIC05-08 Pre-BD % of Predicted 86 % COMPAS PFT URJ04-79 Pre-BD Z-Score -0.41 COMPAS PFT DLCO Hb [...] with ambulation. Noe Meredith MD PFT ORDERABLES COMPAS PFT documented in this encounter Visit Diagnoses Diagnosis Hypoxemia documented in this encounter Care Teams Drum Builder Relationship Specialty Start Date End Date Ana Gillespie APRN [address] [place] [address] PCP - General Family Medicine 02/03/19 documented as of this encounter
--- OUTSIDE RECORDS SUMMARY | 2024-02-05 12:43 | XMS_ITS | Encounter Summary ---
Author Organization [facility] [place] [address] Care Team Providers Care Labor Representative Name Role Phone Ana Gillespie APRN Primary Care Provider [phone] Encounter Details Date Type Department Care Team (Late Contact Info) Description 11/05/2023 Orders [place] [phone] David Dejesus MD [facility] [place] [address] Peptic stricture of esophagus Social History Tobacco [...] PM EDT Office Visit Cardiology at [address] [phone] Milagros Hernandez MD [facility] [address] Scheduled Orders Name Type Priority Associated Diagnoses [...] esophagus documented in this encounter Care Teams Labor Representative Relationship Specialty Start Date End Date Ana Gillespie APRN [address] [place] [address] PCP - General Family Medicine 02/03/19 documented as of this encounter
--- OUTSIDE RECORDS SUMMARY | 2024-02-05 12:43 | XMS_ITS | Encounter Summary ---
Author Organization [facility] Address [facility] [place] [address] Care Team Providers Care Hamper Maker Name Role Phone Ana Gillespie VAUGHN Primary Care Provider [phone] Reason for Referral * Consultation (Routine) - Authorized Specialty Diagnoses / Procedures Referred By Esperanza t Referred To Contact Cardiology Diagnoses Esophageal stricture Gastroesophageal reflux disease, unspecified whether esophagitis present Farrell's esophagus without dysplasia Patient of Dr. Milagros Hernandez with possible complex surgery pending, eval for risk stratification Geronimo Mojica MD [facility] [place] [address] Milagros Hernandez MD [facility] [place] [address] Referral ID Status Reason Start Date Expiration Date Visits Requested Visits Authorized [id number] Authorized Consult Only 12/20/2023 12/19/2024 1 1 Encounter Details Date Type Department Care Team (Late st Contact Info) Description 12/20/2023 Orders [place] [address] Deborah Gallo PA [facility] [place] [address] Esophageal stricture; Gastroesophageal reflux disease, unspecified whether esophagitis present; Farrell's esophagus without dysplasia Social History Tobacco [...] 4:00 PM EDT Office Visit Cardiology at [address] [phone] Milagros Hernandez MD [facility] [place] [address] Scheduled Procedures Name Priority Associated Diagnoses Date/Ti me EGD, UPPER GI ENDOSCOPY (WRV U 2.09) Peptic stricture of esophagus Scheduled Referrals Name Type Priority Associated Diagnoses Orde r Schedule Referral to Cardiology Outpatient Referral Routine Esophageal stricture Gastroesophageal reflux disease, unspecified whether esophagitis present Farrell's esophagus without dysplasia Ordered: 12/20/2023 documented as of this encounter Visit Diagnoses Diagnosis Esophageal stricture Stricture and stenosis of esophagus Gastroesophageal reflux disease, unspecified whether esophagitis present Farrell's esophagus without dysplasia Farrell's esophagus documented in this encounter Care Teams Hamper Maker Relationship Specialty Start Date End Date Ana Gillespie APRN [address] [place] [address] PCP - General Family Medicine 02/03/19 documented as of this encounter
--- OUTSIDE RECORDS SUMMARY | 2024-02-05 12:43 | XMS_ITS | Encounter Summary ---
Author Organization [facility] Address [facility] [place] [address] Care Team Providers Care Cash Register Balancer Name Role Phone Ana Gillespie APRN Primary Care Provider [phone] Encounter Details Date Type Department Care Team (Latest Contact Info) Description 11/17/2023 8:40 AM EDT Office Visit Cardiology at [address] [phone] Milagros Hernandez MD [facility] [address] Stress-induced cardiomyopathy Social History Tobacco Use Types [...] from the original note were not included. [facility] [place] [address] CARDIOLOGY OUTPATIENT NOTE PRIMARY CARE PROVIDER: Ana [...] glucose meter kit. 1 each 0 Insulin [place], Disposable, (BD INSULIN PEN NEEDLE UF MINI) 31 x 3/16 Needle 1 Device by [facility].(Non-Drug; Combo Route) route 3 times daily as [...] stricture dilations and unfortunately was admitted to [facility] at the end of February shortly after [...] in April, she had another admission to [facility] in June 2023 for COPD which was complicated by a Type II NSTEMI. The transmitter supervisor assistant professor of economics here was contacted and recommended a TTE, [...] There is no evidence that providers at [facility] reached back out to Cardiology here so [...] Sinus bradycardia, low voltage, otherwise normal TTE ([facility], 11/20/22): TTE (08/19/22): Interpretation Summary -Left ventricular [...] to obtain her echo from June at [facility] which I do not have the results [...] most recent echocardiogram results from June at [facility] - Patient to reach out once surgical [...] next visit. Milagros Hernandez MD Cardiovascular Medicine [facility] 11/17/2023 documented in this encounter Plan of Treatment Upcoming Encounters Date Type Department Care Team (Late st Contact Info) Description 03/10/2024 4:00 PM EDT Office Visit Cardiology at [address] [phone] Milagros Hernandez MD [facility] [place] [place] [address] Scheduled Procedures Name Priority Associated Diagnoses Date/Ti me EGD, UPPER GI ENDOSCOPY (WRV U 2.09) Peptic stricture of esophagus documented as of this encounter Visit Diagnoses Diagnosis Stress-induced cardiomyopathy Takotsubo syndrome documented in this encounter Care Teams Cash Register Balancer Relationship Specialty Start Date End Date Ana Gillespie APRN [address] [place] [address] PCP - General Family Medicine 02/03/19 documented as of this encounter
--- OUTSIDE RECORDS SUMMARY | 2024-02-05 12:44 | XMS_ITS | Encounter Summary ---
[place] [address] Care Team Providers Care Fondant Machine Operator Name Role Phone Ana Gillespie VAUGHN Primary Care Provider [phone] Reason for Referral * Diagnostic Test (Routine) - Closed Specialty Diagnoses / Procedures Referred By Esperanza rodríguez Referred To Contact Radiology Diagnoses Problem with gastrostomy tube Procedures IR Site Check In Recovery Room Fannie Conde PA [facility] [place] [address] [facility] [place] [address] Referral ID Status Reason Start Date Expiration Date V isits Requested Visits Authorized [id number] Closed Specialty Service Requested 09/17/2023 03/19/2025 1 1 Reason for Visit * Diagnostic Test (Routine) - Closed Specialty Diagnoses / Procedures Referred By Esperanza rodríguez Referred To Contact Radiology Diagnoses Problem with gastrostomy tube Procedures IR Site Check In Recovery Room Fannie Conde PA [facility] [place] [address] [facility] [place] [address] Referral ID Status Reason Start Date Expiration Date V isits Requested Visits Authorized [id number] Closed Specialty Service Requested 09/17/2023 03/19/2025 1 1 Encounter Details Date Type Department Care Team (Latest Contact Info) Description 09/17/2023 11:00 AM EDT - 09/17/2023 11:54 AM EDT Hospital [place] [phone] Geronimo Chambers, [facility] [address] Problem with gastrostomy tube Discharge Disposition: Home [...] 180 tablet 3 10/20/2021 Blood Sugar Diagnostic (Next Jump ULTRA TEST) StripIndications:Type 2 diabetes mellitus, uncontrolled [...] meter kit. 1 each 0 12/14/2014 Insulin [place], Disposable, (BD INSULIN PEN NEEDLE UF MINI) [...] 4:00 PM EDT Office Visit Cardiology at [address] [phone] Milagros Hernandez MD [facility] [place] [address] Scheduled Procedures Name Priority Associated Diagnoses Date/Ti [...] Recovery Room (09/17/2023 1:00 PM EDT) Narrative [facility] - 09/17/2023 1:00 PM EDT This exam is auto-finalizing. No interpretation was done. Geronimo [place] IR ORDERABLES [place], [place] * IR G-Tube Check/Change (09/17/2023 12:51 [...] external disk positioned at 4 cm marker. tufting machine operator single needle: Hang Cooper PA-C Attending of record: Geronimo Chambers DO. I was not present. ?? 09/17/2023 Geronimo Chambers DO [facility] IR ORDERABLES documented in this encounter Visit Diagnoses Diagnosis Problem with gastrostomy tube documented in this encounter Care Teams Fondant Machine Operator Relationship Specialty Start Date End Date Ana Gillespie APRN [address] [place] [address] PCP - General Family Medicine 02/03/19 documented as of this encounter
--- OUTSIDE RECORDS SUMMARY | 2024-02-05 12:44 | XMS_ITS | Encounter Summary ---
Author Organization [facility] Address [facility] [place] [address] Care Team Providers Care Nursing Education Specialist Name Role Phone Ana Gillespie APRN Primary Care Provider [phone] Encounter Details Date Type Department Care Team (Late st Contact Info) Description 06/01/2023 9:02 AM EST Anesthesia [place] [phone] Kit Dutta MD [facility] DR [place] [address] Nichelle Dodson MD [facility] [place] [address] Anesthesia Record Procedure Summary Procedure Name Responsible [...] by Sergey Jordan RN PIV 06/01/23; 0836; zcin-fxe-tmdliu catheter system; 22 gauge, 1 in length; [...] Procedure Summary Date: 06/01/23 Room / Location: [facility] ENDO 2 / [facility] ENDOSCOPY Anesthesia Start: 901 Anesthesia Stop: 951 Procedure: EGD,WITH DILATION ESOPHAGUS WITH BALLOON,< 30 MM (WRVU 2.67) (Trunk) Diagnosis: Peptic stricture of esophagus (repeat petic stricture dilation - please schedule within two weeks) Surgeons: David Dejesus MD Responsible Provider: Kit Dutta MD Anesthesia Type: MAC ASA Status: 3 All Anesthesia Providers: Anesthesiologist: Kit Dutta MD CONTROL ELECTRICIAN: Cristine Gomez CRNA Vitals Value Taken Time BP 107/45 06/01/23 1020 Temp Pulse Resp 18 06/01/23 1020 SpO2 94 % 06/01/23 1021 Pain Level 0 06/01/23 1020 Vitals shown include unfiled device data. Patient Location: PACU/[facility] Level of Consciousness: Conscious but Sleepy Pain [...] IR G-Tube Check/Change 11/27/2022 Hang Cooper, [facility] INTERVENTION[facility] RAD ??? IR G-TUBE CHECK/CHANGE 03/10/2023 IR G-Tube Check/Change 03/10/2023 Geronimo Chambers, [facility] RAD ??? IR G-TUBE CHECK/CHANGE 04/06/2023 IR G-Tube Check/Change 04/06/2023 Gavin Carrillo MD [facility] RAD ??? IR G-TUBE CHECK/CHANGE 05/09/2023 IR G-Tube Check/Change [facility] RAD ??? IR G-TUBE PLACEMENT 09/11/2022 IR G-Tube Placement 09/11/2022 Moustapha Hart MD [facility] INTER[facility] RAD ??? IR SUTURE RELEASE 09/25/2022 IR Suture Release 09/25/2022 Yoselin Ghosh, [facility] INTER[facility] RAD ??? PERCUTANEOUS GASTROSTOMY N/A 09/11/2022 PERCUTANEOUS GASTROSTOMY performed by Aiden Flores MD at [facility] CATY ??? PRO COLONOSCOPY, BIOPSY N/A 03/20/2016 [facility] ??? PRO UP GI ENDOSCOPY, BALL DIL, 30MM N/A 12/24/2022 EGD,WITH DILATION ESOPHAGUS WITH BALLOON,< 30 MM (WRVU 2.67) performed by David Dejesus MDat [facility] ENDOSCOPY ??? PRO UP GI ENDOSCOPY, BALL DIL, 30MM N/A 01/12/2023 EGD,WITH DILATION ESOPHAGUS WITH BALLOON,< 30 MM (WRVU 2.67) performed by David Dejesus MDat [facility] ENDOSCOPY ??? PRO UP GI ENDOSCOPY, BALL DIL, 30MM N/A 02/26/2023 EGD,WITH DILATION ESOPHAGUS WITH BALLOON,< 30 MM (WRVU 2.67) [facility]?? PRO UP GI ENDOSCOPY, BALL DIL, 30MM N/A 03/16/2023 EGD,WITH DILATION ESOPHAGUS WITH BALLOON,< 30 MM (WRVU 2.67) performed by David Dejesus [facility] ENDOSCOPY ??? PRO UP GI ENDOSCOPY, BALL DIL, 30MM N/A 03/30/2023 EGD,WITH DILATION ESOPHAGUS WITH BALLOON,< 30 MM (WRVU 2.67) performed by David Dejesus [facility] ENDOSCOPY ??? PRO UP GI ENDOSCOPY, BALL DIL, 30MM N/A 04/30/2023 EGD,WITH DILATION ESOPHAGUS WITH BALLOON,< 30 MM (WRVU 2.67) performed by David Dejesus [facility] ENDOSCOPY ??? PRO UPPER GI ENDOSCOPY, BIOPSY N/A 04/03/2014 UPPER GASTROINTESTINAL ENDOSCOPY,WITH BIOPSY SINGLE OR MULTIPLE performed by David Dejesus [facility] ENDOSCOPY ??? PRO UPPER GI ENDOSCOPY, BIOPSY [...] - Other Informed Consent: Plan discussed with CONTROL ELECTRICIAN. Anesthesia Screening documented in this encounter Plan of Treatment Upcoming Encounters Date Type Department Care Team (Late st Contact Info) Description 03/10/2024 4:00 PM EDT Office Visit Cardiology at [address] [phone] Milagros Hernandez MD [facility] [address] Scheduled Procedures Name Priority Associated Diagnoses Date/Ti [...] mg documented in this encounter Care Teams Nursing Education Specialist Relationship Specialty Start Date End Date Ana Gillespie APRN [address] [place] [address] PCP - General Family Medicine 02/03/19 documented as of this encounter
--- OUTSIDE RECORDS SUMMARY | 2024-02-05 12:44 | XMS_ITS | Encounter Summary ---
[facility] Address [facility] [place] [address] Care Team Providers Care Formulation Scientist Name Role Phone Ana Gillespie VAUGHN Primary Care Provider [phone] Encounter Details Date Type Department Care Team (Late st Contact Info) Description 06/01/2023 9:00 AM EST - 06/01/2023 9:45 AM EST Surgery Gastroenterology at [facility] [place] [address] David Dejesus MD [facility] [place] [address] EGD,WITH DILATION ESOPHAGUS WITH BALLOON,< 30 MM [...] the day after the procedure, use an orby-zhq-ecxyhbg spray to numb your throat. Sucking on [...] occurs, please contact your Doctor. Please call [phone] before 8pm Mon-Fri with problems, questions or concerns. If you call after 8pm or on weekends, call the Hospital at [phone] and ask to speak to the Fence Machine Operator adult basic education teacher and the pipe smoker machine operator will contact that person for you. When should you call for help? Call [phone] anytime you think you may need emergency [...] any problems. Where can you learn more? [facility] View your After Visit Summary and more online at [email or web address] If you would like to provide feedback about your hospital experience, please call the Office of Patient and Family Relations at . If you have received this After Visit Summary in error, please immediately return it in person to the department, or notify the [facility] Privacy Office by calling toll free at between the hours of 8AM and 5PM to arrange for our retrieval of the documents at no cost to you. Content Version: 12.2 ?? 4084-4266 [employer]itemasher. Care instructions adapted under license by [facility]. If you have questions about a medical condition or this instruction, always ask your healthcare professional. [employer] disclaims any warranty or liability for your [...] meter kit. 1 each 0 12/14/2014 Insulin [place], Disposable, (BD INSULIN PEN NEEDLE UF MINI) 31 x 07/23 NeedleIndications:Di abetes mellitus type 2, uncontrolled 1 Device by [facility]Non-Drug; Combo Route) route 3 times daily as [...] glucose meter kit. 1 each 0 Insulin [place], Disposable, (BD INSULIN PEN NEEDLE UF MINI) 31 x 3/16 Needle 1 Device by [facility].(Non-Drug; Combo Route) route 3 times daily as [...] Dejesus MD - 06/01/2023 9:15 AM EST [facility] Operative Note Patient Name: Jennifer Irving : [id number] MR#: [id number] Case Date: 06/01/2023 This note was entered in error documented in this encounter Plan of Treatment Upcoming Encounters Date Type Department Care Team (Late st Contact Info) Description 03/10/2024 4:00 PM EDT Office Visit Cardiology at [address] [address] Milagros Hernandez MD [facility] [place] [address] Scheduled Procedures Name Priority Associated Diagnoses Date/Ti me EGD, UPPER GI ENDOSCOPY (WRV U 2.09) Peptic stricture of esophagus documented as of this encounter Procedures Procedure Name Priority Date/Time Associated Diagnosis Comments Up Gi Endoscopy, Ball Dil, 30Mm (22430) 06/01/2023 9:06 AM EST Peptic stricture of esophagus UPPER GI ENDOSCOPY Routine 06/01/2023 8: 54 AM EST POCT GLUCOSE Routine 06/01/2023 8:32 AM EST documented in this encounter Results * UPPER GI ENDOSCOPY (06/01/2023 8:54 AM EST) Pathologist [facility] UPPER GI ENDOSCOPY [facility] Endoscopy Procedure Date: 06/01/2023 8:54 AM ? Patient Name: Jennifer Irving ? Date of : 1960 ? Age: 62 ? Order #: [id number] ? Instrument Name: [id number] ? Procedure: ? Upper GI endoscopy Indications: ? Stricture dilation Providers: ? David Dejesus MD, Gaby ? Rylee, Kenna Barbosa Referring : ?Ana Gillespie Medicines: ? General Anesthesia Complications: ? No [...] Procedure Code(s): ? --- Professional --- ? 35390, Esophagogastroduod enoscopy, ? flexible, transoral; diagnostic, ? including collection of specimen(s) ? by brushing or washing, when ? performed (separate procedure) CPT copyright 2022 [employer]. All rights reserved. The codes documented in this report are preliminary and upon junior account manager review may be revised to meet current compliance requirements. Attending Participation: ? I personally performed the entire procedure. ? ___ David Dejesus MD 06/01/2023 9:37:18 AM This report has been signed electronically. Number of Addenda: 0 Note Initiated On: 06/01/2023 8:54 AM PROVATION 06/01/2023 8:54 AM EST Ana Gillespie SALES APPLICATIONS ENGINEER GENERAL SURGICAL ORD ERABLES Performing Organization Address [facility] Co de Phone Number PROVATION * POCT Glucose (06/01/2023 8:32 AM EST) Glucose, POC 102 65 - 199 mg/dL [facility] Comment: Supplemental ranges: <140 mg/dL before meals <180 mg/dL all other times of the day Blood 06/01/2023 8:32 AM EST 06/01/2023 8:32 AM EST David Dejesus MD POINT OF CARE TEST ORDERABLES Performing Organization Address [facility] Co de Phone Number [facility] [place] [address] documented in this encounter Visit Diagnoses Diagnosis [...] 1025, Endoscopy (Day of Procedure) 0837 ([facility] ider: Mary Peace RN) documented in this encounter Care Teams Formulation Scientist Relationship Specialty Start Date End Date Ana Gillespie APRN [address] [place] [address] PCP - General Family Medicine 02/03/19 documented as of this encounter
--- OUTSIDE RECORDS SUMMARY | 2024-02-05 12:44 | XMS_ITS | Encounter Summary ---
Author Organization [facility] Address [facility] [place] [address] Care Team Providers Care Information Systems Security Developer Name Role Phone Ana Gillespie APRN Primary Care Provider [phone] Encounter Details Date Type Department Care Team (Late st Contact Info) Description 06/18/2023 Telephone [place] [phone] Niru Mary Social History Tobacco Use Types [...] 4:00 PM EDT Office Visit Cardiology at [address] [phone] Milagros Hernandez MD [facility] CARDIOLOGY [place] [phone] Scheduled Procedures Name Priority Associated Diagnoses Date/Ti me EGD, UPPER GI ENDOSCOPY (WRV U 2.09) Peptic stricture of esophagus documented as of this encounter Visit Diagnoses Not on filedocumented in this encounter Care Teams Information Systems Security Developer Relationship Specialty Start Date End Date Ana Gillespie APRN [address] [place] [address] PCP - General Family Medicine 02/03/19 documented as of this encounter
--- OUTSIDE RECORDS SUMMARY | 2024-02-05 12:44 | XMS_ITS | Encounter Summary ---
Author Organization [facility] Address [facility] [place] [address] Care Team Providers Care Typesetting Supervisor Name Role Phone Ana Gillespie APRN Primary Care Provider [phone] Encounter Details Date Type Department Care Team (Late st Contact Info) Description 08/02/2023 11:03 AM EDT Anesthesia [place] [phone] Maddie Hughes MD [facility] [place] [address] Anesthesia Record Procedure Summary Procedure Name Responsible [...] for questions and acknowledgement of understanding claire COUNTY EXTENSION AGENT 1137 Extubation/LMA Out 1139 an stop data [...] Procedure Summary Date: 08/02/23 Room / Location: [facility] ENDO 2 / [facility] ENDOSCOPY Anesthesia Start: 1103 Anesthesia Stop: 1148 Procedure: EGD,WITH DILATION ESOPHAGUS WITH BALLOON,< 30 MM (WRVU 2.67) Diagnosis: Peptic stricture of esophagus (covington's esophagus - stricyture - 45 minutes - schedule july 2023) Surgeons: David Dejesus MD Responsible Provider: Maddie Hughes MD Anesthesia Type: general ASA Status: 3 All Anesthesia Providers: Anesthesiologist: Maddie Hughes MD COUNTY EXTENSION AGENT: Ede Hughes CRNA Vitals Value Taken Time [...] performed was the same as planned.) Comments: Maddei Hughes MD * Anesthesia Preprocedure Evaluation - [...] IR G-Tube Check/Change 11/27/2022 Hang Cooper PA [facility] INTERVENTIONL RAD ??? IR G-TUBE CHECK/CHANGE 03/10/2023 IR G-Tube Check/Change 03/10/2023 Geronimo Chambers, [facility] INTERVENTIONL RAD ??? IR G-TUBE CHECK/CHANGE 04/06/2023 IR G-Tube Check/Change 04/06/2023 Gavin Carrillo MD [facility] INTERVENTIONL RAD ??? IR G-TUBE CHECK/CHANGE 05/09/2023 IR G-Tube Check/Change [facility] INTERVENTIONL RAD ??? IR G-TUBE CHECK/CHANGE 07/09/2023 IR G-Tube Check/Change [facility] INTERVENTIONL RAD ??? IR G-TUBE PLACEMENT 09/11/2022 IR G-Tube Placement 09/11/2022 Moustapha Hart MD [facility] INTERVENTIONL RAD ??? IR SUTURE RELEASE 09/25/2022 IR Suture Release 09/25/2022 Yoselin Ghosh PA [facility] INTERVENTIONL RAD ??? PERCUTANEOUS GASTROSTOMY N/A 09/11/2022 PERCUTANEOUS GASTROSTOMY performed by Aiden Flores MD at [facility] CATY ??? PRO COLONOSCOPY, BIOPSY N/A 03/20/2016 COLONOSCOPY FLEXIBLE, WITH BX performed by David Dejesus MD at [facility] ENDOSCOPY ??? PRO COLONOSCOPY, DIAGNOSTIC N/A 03/01/2020 COLONOSCOPY, DIAGNOSTIC performed by David Dejesus MD at [facility] ENDOSCOPY ??? PRO ENDOSCOPIC US EXAM, ESOPH N/A 03/31/2022 UPPER EUS- ENDOSCOPIC ULTRASOUND performed by David Dejesus MD at [facility] ENDOSCOPY ??? PRO UP GI ENDOSCOPY, BALL DIL, 30MM N/A 12/24/2022 EGD,WITH DILATION ESOPHAGUS WITH BALLOON,< 30 MM (WRVU 2.67) performed by David Dejesus [facility] ENDOSCOPY ??? PRO UP GI ENDOSCOPY, BALL DIL, 30MM N/A 01/12/2023 EGD,WITH DILATION ESOPHAGUS WITH BALLOON,< 30 MM (WRVU 2.67) performed by David Dejesus MDat [facility] ENDOSCOPY ??? PRO UP GI ENDOSCOPY, BALL DIL, 30MM N/A 02/26/2023 EGD,WITH DILATION ESOPHAGUS WITH BALLOON,< 30 MM (WRVU 2.67) performed by David Dejesus [facility] ENDOSCOPY ??? PRO UP GI ENDOSCOPY, BALL DIL, 30MM N/A 03/16/2023 EGD,WITH DILATION ESOPHAGUS WITH BALLOON,< 30 MM (WRVU 2.67) performed by David Dejesus [facility] ENDOSCOPY ??? PRO UP GI ENDOSCOPY, BALL DIL, 30MM N/A 03/30/2023 EGD,WITH DILATION ESOPHAGUS WITH BALLOON,< 30 MM (WRVU 2.67) performed by David Dejesus [facility] ENDOSCOPY ??? PRO UP GI ENDOSCOPY, BALL DIL, 30MM N/A 04/30/2023 EGD,WITH DILATION ESOPHAGUS WITH BALLOON,< 30 MM (WRVU 2.67) performed by David Dejesus [facility] ENDOSCOPY ??? PRO UP GI ENDOSCOPY, BALL DIL, 30MM N/A 06/01/2023 EGD,WITH DILATION ESOPHAGUS WITH BALLOON,< 30 MM (WRVU 2.67) performed by David Dejesus [facility] ENDOSCOPY ??? PRO UPPER GI ENDOSCOPY, BIOPSY N/A 04/03/2014 UPPER GASTROINTESTINAL ENDOSCOPY,WITH BIOPSY SINGLE OR MULTIPLE performed by David Dejesus [facility] ENDOSCOPY ??? PRO UPPER GI ENDOSCOPY, BIOPSY N/A 03/20/2016 EGD WITH BIOPSY performed by David Dejesus MD at [facility] ENDOSCOPY ??? PRO UPPER GI ENDOSCOPY, BIOPSY N/A 11/22/2018 EGD WITH BIOPSY (WRVU 2.49) performed by David Dejesus MD at [facility] ENDOSCOPY ??? PRO UPPER GI ENDOSCOPY, BIOPSY N/A 03/01/2020 UPPER GASTROINTESTINAL ENDOSCOPY,WITH BIOPSY SINGLE OR MULTIPLE (WRVU 2.49) performed by David Dejesus MD at [facility] ENDOSCOPY ??? PRO UPPER GI ENDOSCOPY, BIOPSY N/A 09/23/2021 EGD WITH BIOPSY (WRVU 2.49) performed by aDvid Dejesus MD at [facility] ENDOSCOPY ??? PRO UPPER GI ENDOSCOPY, BIOPSY N/A 03/31/2022 EGD WITH BIOPSY (WRVU 2.49) performed by David Dejesus MD at [facility] ENDOSCOPY ??? PRO UPPER GI ENDOSCOPY, BIOPSY N/A 07/03/2022 EGD WITH BIOPSY (WRVU 2.49) performed by David Dejesus MD at [facility] ENDOSCOPY ??? PRO UPPER GI ENDOSCOPY, DIAGNOSTIC N/A 04/03/2014 EGD, UPPER GI ENDOSCOPY performed by David Dejesus MD at [facility] ENDOSCOPY ??? PRO UPPER GI ENDOSCOPY, DIAGNOSTIC N/A 03/01/2020 EGD, UPPER GI ENDOSCOPY performed by David Dejesus MD at [facility] ENDOSCOPY ??? PRO UPPER GI ENDOSCOPY, DIAGNOSTIC N/A 09/09/2022 EGD, UPPER GI ENDOSCOPY (WRVU 2.09) performed by Ayo Russ MD at [facility] MAIN OR Social History Tobacco Use [...] with patient and spouse. Plan discussed with COUNTY EXTENSION AGENT and attending. Anesthesia Screening documented in this encounter Plan of Treatment Upcoming Encounters Date Type Department Care Team (Late st Contact Info) Description 03/10/2024 4:00 PM EDT Office Visit Cardiology at [address] [address] Milagros Hernandez MD [facility] [place] [address] Scheduled Procedures Name Priority Associated Diagnoses Date/Ti [...] mg documented in this encounter Care Teams Typesetting Supervisor Relationship Specialty Start Date End Date Ana Gillespie APRN [address] [place] [address] PCP - General Family Medicine 02/03/19 documented as of this encounter
--- OUTSIDE RECORDS SUMMARY | 2024-02-05 12:44 | XMS_ITS | Encounter Summary ---
Author Organization [facility] [place] [address] Care Team Providers Care Elevator Repairer Name Role Phone Ana Gillespie APRN Primary Care Provider [phone] Encounter Details Date Type Department Care Team [...] 4:00 PM EDT Office Visit Cardiology at [address] [address] Milagros Hernandez MD [facility] [place] [address] Scheduled Procedures Name Priority Associated Diagnoses Date/Ti me EGD, UPPER GI ENDOSCOPY (WRV U 2.09) Peptic stricture of esophagus documented as of this encounter Visit Diagnoses Not on filedocumented in this encounter Care Teams Elevator Repairer Relationship Specialty Start Date End Date Ana Gillespie APRN [address] [place] [address] PCP - General Family Medicine 02/03/19 documented as of this encounter
--- OUTSIDE RECORDS SUMMARY | 2024-02-05 12:44 | XMS_ITS | Encounter Summary ---
[place] [address] Care Team Providers Care Lever Operator Name Role Phone Ana Gillespie VAUGHN Primary Care Provider [phone] Reason for Referral * Diagnostic Test (Routine) - Closed Specialty Diagnoses / Procedures Referred By Esperanza t Referred To Contact Radiology Diagnoses Neuroleptic-induced parkinsonism Procedures IR G-Tube Check/Change LexingtonFannie merritt PA [facility] [place] [address] [facility] [place] [address] Referral ID Status Reason Start Date Expiration Date V isits Requested Visits Authorized [id number] Closed Specialty Service Requested 07/06/2023 01/03/2025 1 1 Reason for Visit * Diagnostic Test (Routine) - Closed Specialty Diagnoses / Procedures Referred By Contjovani t Referred To Contact Radiology Diagnoses Neuroleptic-induced parkinsonism Procedures IR G-Tube Check/Change LexingtonFannie merritt PA [facility] [place] [address] [facility] [place] [address] Referral ID Status Reason Start Date Expiration Date V isits Requested Visits Authorized [id number] Closed Specialty Service Requested 07/06/2023 01/03/2025 1 1 Encounter Details Date Type Department Care Team (Latest Contact Info) Description 07/09/2023 12:21 PM EST - 07/09/2023 11:59 PM EST Hospital Encounter Radiology at [facility] [place] [address] Moustapha Hart MD [facility] [place] [address] Neuroleptic-induced parkinsonism Discharge Disposition: Home Social History [...] or its attachments. INTERVENTIONAL RADIOLOGY PHONE NUMBERS [phone] If you have a NON Low profile feeding tube, call with any questions or concerns. During regular office hours call: [phone]. If it is after regular office hours, weekends or holidays, please call [phone] and ask to speak to the Gas Pumping Station Supervisor incident response specialist for Interventional Radiology. If you have a low profile ???ESTRELLITA-BARLOW?? feeding tube, please call Dejah Stauffer RN for any issues: [phone]. Revised 02/23/19 documented in this encounter Medications [...] meter kit. 1 each 0 12/14/2014 Insulin [place], Disposable, (BD INSULIN PEN NEEDLE UF MINI) [...] of : 1960 AGE: 63 y.o. Address: [address] [address] (home) Mobile: Telephone Information: Referring Provider: Fannie Conde REASON FOR VISIT: Order Questions Answers Where will study be performed? [facility] Radiology [120] Is the patient [...] 4:00 PM EDT Office Visit Cardiology at [address] [address] Milagros Hernandez MD [facility] [place] [address] Scheduled Procedures Name Priority Associated Diagnoses Date/Ti [...] procedure was performed under fluoroscopic guidance. ??A head bucker fluoroscopic image was obtained. ??Contrast was injected through the gastrostomy catheter and another fluoroscopic image was obtained. ??Through the catheter, an 0.035 Amplatz wire was advanced. ??The catheter was removed. ??Over the wire, a new 16-Fr zkz-gso-rreclvx (ESTRELLITA) gastrostomy catheter was advanced. ??The retention [...] freely than typical. Exchange for new 16-Fr uap-cvf-fefyypa (ESTRELLITA) gastrostomy catheter within the stomach; retention [...] mLs documented in this encounter Care Teams Lever Operator Relationship Specialty Start Date End Date Ana Gillespie APRN [address] [place], [place] [address] PCP - General Family Medicine 02/03/19 documented as of this encounter
--- OUTSIDE RECORDS SUMMARY | 2024-02-05 12:44 | XMS_ITS | Encounter Summary ---
Author Organization [facility] [place] [address] Care Team Providers Care Terrazzo Helper Name Role Phone Ana Gillespie WEB CONTENT EDITOR Primary Care Provider [phone] Encounter Details Date Type Department Care Team (Late st Contact Info) Description 08/11/2023 Telephone Gastroenterology at [facility] [place] [address] Parris Maravilla Social History Tobacco Use Types [...] - 08/11/2023 12:09 PM EDT Jennifer Irving [id number] Diagnosis/Indication: shedule one month - peptic stricture [...] your procedure. Who will likely be your regional flatbed truck driver for the procedure? *Please Verify [...] 4:00 PM EDT Office Visit Cardiology at [address] [address] Milagros Hernandez MD [facility] [place] [address] Scheduled Procedures Name Priority Associated Diagnoses Date/Ti me EGD, UPPER GI ENDOSCOPY (WRV U 2.09) Peptic stricture of esophagus documented as of this encounter Visit Diagnoses Not on filedocumented in this encounter Care Teams Terrazzo Helper Relationship Specialty Start Date End Date Ana Gillespie APRN [address] [place] [address] PCP - General Family Medicine 02/03/19 documented as of this encounter
--- OUTSIDE RECORDS SUMMARY | 2024-02-05 12:44 | XMS_ITS | Encounter Summary ---
Author Organization [facility] [place] [address] Care Team Providers Care Side Seam Machine Operator Name Role Phone Ana Gillespie APRN Primary Care Provider [phone] Encounter Details Date Type Department Care Team (Late st Contact Info) Description 06/01/2023 Orders [place] [phone] David Dejesus MD [facility] [place] [address] Peptic stricture of esophagus Social History Tobacco [...] PM EDT Office Visit Cardiology at [address] [phone] Milagros Hernandez MD [facility] [place] [address] Scheduled Procedures Name Priority Associated Diagnoses Date/Ti me EGD, UPPER GI ENDOSCOPY (WRV U 2.09) Peptic stricture of esophagus documented as of this encounter Visit Diagnoses Diagnosis Peptic stricture of esophagus Stricture and stenosis of esophagus documented in this encounter Care Teams Side Seam Machine Operator Relationship Specialty Start Date End Date Ana Gillespie APRN [address] [place] [address] PCP - General Family Medicine 02/03/19 documented as of this encounter
--- OUTSIDE RECORDS SUMMARY | 2024-02-05 12:44 | XMS_ITS | Encounter Summary ---
Author Organization [facility] [place] [address] Care Team Providers Care Concrete Floater Name Role Phone Ana Gillespie APRN Primary Care Provider [phone] Encounter Details Date Type Department Care Team (Late st Contact Info) Description 08/02/2023 Orders [place] [phone] David Dejesus MD [facility] [place] [address] Peptic stricture of esophagus Social History Tobacco [...] 4:00 PM EDT Office Visit Cardiology at [address] [phone] Milagros Hernandez MD [facility] [place] [address] Scheduled Procedures Name Priority Associated Diagnoses Date/Ti me EGD, UPPER GI ENDOSCOPY (WRV U 2.09) Peptic stricture of esophagus documented as of this encounter Visit Diagnoses Diagnosis Peptic stricture of esophagus Stricture and stenosis of esophagus documented in this encounter Care Teams Concrete Floater Relationship Specialty Start Date End Date Ana Gillespie APRN [address] [place] [address] PCP - General Family Medicine 02/03/19 documented as of this encounter
--- OUTSIDE RECORDS SUMMARY | 2024-02-05 12:44 | XMS_ITS | Encounter Summary ---
Author Organization [facility] Address [facility] [place] [address] Care Team Providers Care Hand Collator Name Role Phone Ana Gillespie APRN Primary Care Provider [phone] Encounter Details Date Type Department Care Team (Late st Contact Info) Description 07/02/2023 Tele[place] [phone] Zhang Pope MD [facility] [place] [address] Social History Tobacco Use Types Packs/Day Years [...] Referring Provider: Dr. Tae Abrams Patient Location: [facility] Presenting Symptoms per OSH: Jennifer Irving [...] Jan 2023. The patient presented today to [facility] with cough and shortness of breath. The working diagnosis at [facility] is a COPD exacerbation. Cardiology was contacted as the patient's troponin had increased over three hours from 203 to 434. The patient has sharp generalized chest pain that occurs when she coughs but does not have chest pressure. ECG is similar to previous. The patient is on BiPAP and the provider at [facility] plans to admit her locally with [...] had a TTE performed November 2022 at [facility] with LVEF that nearly completely recovered. [...] in the patient condition. Zhang Pope MD Reference Test Clerk documented in this encounter Plan of Treatment Upcoming Encounters Date Type Department Care Team (Late st Contact Info) Description 03/10/2024 4:00 PM EDT Office Visit Cardiology at [address] [address] Milagros Hernandez MD [facility] [place] [address] Scheduled Procedures Name Priority Associated Diagnoses Date/Ti me EGD, UPPER GI ENDOSCOPY (WRV U 2.09) Peptic stricture of esophagus documented as of this encounter Visit Diagnoses Not on filedocumented in this encounter Care Teams Hand Collator Relationship Specialty Start Date End Date Ana Gillespie APRN [address] [place] [address] PCP - General Family Medicine 02/03/19 documented as of this encounter
--- OUTSIDE RECORDS SUMMARY | 2024-02-05 12:44 | XMS_ITS | Encounter Summary ---
Author Organization [facility] Address [facility] [place] [address] Care Team Providers Care Radiology Director Name Role Phone Ana Gillespie VAUGHN Primary Care Provider [phone] Encounter Details Date Type Department Care Team (Latest Contact Info) Description 08/02/2023 8:59 AM EDT - 08/02/2023 12:45 PM EDT Hospital En[place] [phone] David Dejesus MD [facility] [place] [address] Discharge Disposition: Home Social History Tobacco Use [...] the day after the procedure, use an guof-syi-cnoajti spray to numb your throat. Sucking on [...] occurs, please contact your Doctor. Please call [phone] before 8pm Mon-Fri with problems, questions or concerns. If you call after 8pm or on weekends, call the Hospital at [phone] and ask to speak to the Imaging Tech classroom instructional aide and the concrete pump operator will contact that person for you. When should you call for help? Call [phone] anytime you think you may need emergency [...] Where can you learn more? [facility] View your After Visit Summary and more online at [email or web address] If you would like to provide feedback about your hospital experience, please call the Office of Patient and Family Relations at . If you have received this After Visit Summary in error, please immediately return it in person to the department, or notify the [facility] Privacy Office by calling toll free at between the hours of 8AM and 5PM to arrange for our retrieval of the documents at no cost to you. Content Version: 12.2 ?? 3193-4457 [employer]. Care instructions adapted under license by [facility]. If you have questions about a medical condition or this instruction, always ask your healthcare professional. [employer] disclaims any warranty or liability for your [...] the day after the procedure, use an fzfj-xuu-voanruc spray to numb your throat. Sucking on [...] occurs, please contact your Doctor. Please call [phone] before 8pm Mon-Fri with problems, questions or concerns. If you call after 8pm or on weekends, call the Hospital at [phone] and ask to speak to the Imaging Tech classroom instructional aide and the concrete pump operator will contact that person for you. When should you call for help? Call [phone] anytime you think you may need emergency [...] Where can you learn more? [facility] View your After Visit Summary and more online at [email or web address] If you would like to provide feedback about your hospital experience, please call the Office of Patient and Family Relations at . If you have received this After Visit Summary in error, please immediately return it in person to the department, or notify the [facility] Privacy Office by calling toll free at between the hours of 8AM and 5PM to arrange for our retrieval of the documents at no cost to you. Content Version: 12.2 ?? 7698-7757 [employer]ocal[employer]. Care instructions adapted under license by [facility]. If you have questions about a medical condition or this instruction, always ask your healthcare professional. [employer] disclaims any warranty or liability for your [...] meter kit. 1 each 0 12/14/2014 Insulin [place], Disposable, (BD INSULIN PEN NEEDLE UF MINI) 31 x /16 NeedleIndications:Josefina betes mellitus type 2, uncontrolled 1 Device by [facility].(Non-Drug; Combo Route) route 3 times [...] 4:00 PM EDT Office Visit Cardiology at [address] [address] Milagros Hernandez MD [facility] [place] [address] Scheduled Procedures Name Priority Associated Diagnoses Date/Ti me EGD, UPPER GI ENDOSCOPY (WRV U 2.09) Peptic stricture of esophagus documented as of this encounter Procedures Procedure Name Priority Date/Time Associated Diagnosis Comments Up Gi Endoscopy, Ball Dil, 30Mm ([id number]) 08/02/2023 11:01 AM EDT Peptic stricture of esophagus UPPER GI ENDOSCOPY Routine 08/02/2023 10 :49 AM EDT POCT GLUCOSE Routine 08/02/2023 9:54 AM EDT documented in this encounter Results * UPPER GI ENDOSCOPY (08/02/2023 10:49 AM EDT) UPPER GI ENDOSCOPY [facility] Endoscopy Procedure Date: 08/02/2023 10:49 AM ? Patient Name: Jennifer Irving ? Date of : 1960 ? Age: 63 ? Order #: [id number] ? Instrument Name: [id number] ? Procedure: ? Upper GI endoscopy Indications: ? Peptic Stricture Providers: ? David Dejesus MD, Parminder Craig ? Ayo Mao, ? Tapan Camargo Referring MD: ?Ana Keith: ? General Anesthesia Complications: [...] GENERAL SURGICAL ORD ERABLES Performing Organization Address [facility] de Phone Number PROVATION * POCT Glucose (08/02/2023 9:54 AM EDT) Glucose, POC 81 65 - 199 mg/dL [facility] Comment: Supplemental ranges: <140 mg/dL before meals <180 mg/dL all other times of the day Blood 08/02/2023 9:54 AM EDT 08/02/2023 9:54 AM EDT David Dejesus MD POINT OF CARE TEST ORDERABLES Performing Organization Address [facility] de Phone Number [facility] [place] [address] documented in this encounter Visit Diagnoses Not [...] CRNA) documented in this encounter Care Teams Radiology Director Relationship Specialty Start Date End Date Ana Gillespie APRN [address] [place] [address] PCP - General Family Medicine 02/03/19 documented as of this encounter
--- OUTSIDE RECORDS SUMMARY | 2024-02-05 12:44 | XMS_ITS | Encounter Summary ---
Author Organization [facility] Address [facility] [place] [address] Care Team Providers Care Precision Honing Machine Operator Name Role Phone Ana Gillespie PR SPECIALIST Primary Care Provider [phone] Encounter Details Date Type Department Care Team (Late st Contact Info) Description 09/20/2023 [place] [address] Juice Maxwell RN Social History [...] placed for pt failed while visiting in [place]. Pt is currently at an Urgent Care in [place] to manage situation. Rogelio is calling [facility] IR to hopefully schedule apt for pt this coming . Forwarded. documented in this encounter Plan of Treatment Upcoming Encounters Date Type Department Care Team (Late st Contact Info) Description 03/10/2024 4:00 PM EDT Office Visit Cardiology at [address] [phone] Milagros Hernandez MD [facility] [place] [address] Scheduled Procedures Name Priority Associated Diagnoses Date/Ti me EGD, UPPER GI ENDOSCOPY (WRV U 2.09) Peptic stricture of esophagus documented as of this encounter Visit Diagnoses Not on filedocumented in this encounter Care Teams Precision Honing Machine Operator Relationship Specialty Start Date End Date Ana Gillespie APRN [address] [place] [address] PCP - General Family Medicine 02/03/19 documented as of this encounter
--- OUTSIDE RECORDS SUMMARY | 2024-02-05 12:44 | XMS_ITS | Encounter Summary ---
Author Organization [facility] [place] [address] Care Team Providers Care Air Carrier Operations Inspector Name Role Phone Jose Miguel Ana MENDES Primary Care Provider [phone] Encounter Details Date Type Department Care Team (Late st Contact Info) Description 07/12/2023 Telephone Cardiology at [address] [phone] Chiquis Jean, RN Social History Tobacco Use [...] 07/12/2023 10:29 AM EST TC to [facility] in [facility], and spoke with Pharmacist to clarify [...] that the Entresto has been called to [employer] in [facility]. Reviewing his chart the last DH prescription refill from [facility] Cardiology was 09/24/2022, for [...] 4:00 PM EDT Office Visit Cardiology at [address] [address] Milagros Hernandez MD [facility] [place] [address] Scheduled Procedures Name Priority Associated Diagnoses Date/Ti me EGD, UPPER GI ENDOSCOPY (WRV U 2.09) Peptic stricture of esophagus documented as of this encounter Visit Diagnoses Not on filedocumented in this encounter Care Teams Air Carrier Operations Inspector Relationship Specialty Start Date End Date Ana Gillespie APRN [address] [place] [address] PCP - General Family Medicine 02/03/19 documented as of this encounter
--- OUTSIDE RECORDS SUMMARY | 2024-02-05 12:44 | XMS_ITS | Encounter Summary ---
Author Organization [facility] [place] [address] Care Team Providers Care Apartment Property Manager Name Role Phone Ana Gillespie APRN Primary Care Provider [phone] Encounter Details Date Type Department Care Team (Late st Contact Info) Description 07/06/2023 Telephone Cardiology at [address] [phone] Chiquis Jean, RN Social History Tobacco Use [...] message stating Mrs Irving was admitted to [facility] over this past weekend. He states an [...] PM EDT Office Visit Cardiology at [address] [address] Milagros Hernandez MD [facility] [place] [address] Scheduled Procedures Name Priority Associated Diagnoses Date/Ti me EGD, UPPER GI ENDOSCOPY (WRV U 2.09) Peptic stricture of esophagus documented as of this encounter Visit Diagnoses Not on filedocumented in this encounter Care Teams Apartment Property Manager Relationship Specialty Start Date End Date Ana Gillespie APRN [address] [place] [address] PCP - General Family Medicine 02/03/19 documented as of this encounter
--- OUTSIDE RECORDS SUMMARY | 2024-02-05 12:44 | XMS_ITS | Encounter Summary ---
Author Organization [facility] [place] [address] Care Team Providers Care De Ionizer Operator Name Role Phone Ana Gillespie VAUGHN Primary Care Provider [phone] Reason for Referral * Diagnostic Test (Routine) - Closed Specialty Diagnoses / Procedures Referred By Esperanza rodríguez Referred To Contact Radiology Diagnoses Problem with gastrostomy tube Farrell's esophagus with high grade dysplasia Farrell's esophagus with low grade dysplasia Procedures IR G-Tube Check/Change Hang Cooper PA [facility] [place] [address] [place] [address] Referral ID Status Reason Start Date Expiration Date V isits Requested Visits Authorized [id number] Closed Specialty Service Requested 09/23/2023 03/25/2025 1 1 * Diagnostic Test (Routine) - Closed Specialty Diagnoses / Procedures Referred By Esperanza rodríguez Referred To Contact Radiology Diagnoses Problem with gastrostomy tube 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 Procedures IR Site Check In Recovery Room Hang Cooper PA [facility] [place] [address] [place] [address] Referral ID Status Reason Start Date Expiration Date V isits Requested Visits Authorized [id number] Closed Specialty Service Requested 09/20/2023 03/22/2025 1 1 Reason for Visit * Diagnostic Test (Routine) - Closed Specialty Diagnoses / Procedures Referred By Esperanza rodríguez Referred To Contact Radiology Diagnoses Problem with gastrostomy tube 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 Procedures IR Site Check In Recovery Room Hang Cooper PA [facility] [place] [address] [place] [address] Referral ID Status Reason Start Date Expiration Date V isits Requested Visits Authorized [id number] Closed Specialty Service Requested 09/20/2023 03/22/2025 1 1 Encounter Details Date Type Department Care Team (Latest Contact Info) Description 09/23/2023 9:47 AM EDT - 09/23/2023 11:59 PM EDT Hospital [place] [address] Geronimo Chambers, [facility] [address] Problem with gastrostomy tube; Neuroleptic-induced parkinsonism; Farrell's [...] meter kit. 1 each 0 12/14/2014 Insulin [place], Disposable, (BD INSULIN PEN NEEDLE UF MINI) 31 x 07/23 NeedleIndications:Josefina betes mellitus type 2, uncontrolled 1 Device by [facility].(Non-Drug; Combo Route) route 3 times daily as needed. 100 each 11 12/13/2014 documented as of this encounter Progress Notes * Hang Cooper PA - 09/23/2023 12:56 PM EDT Interventional Radiology - Progress Note Patient Name: Jennifer Irving : 1960 MR#: [id number] Seen in IR recovery in followup to G-tube issues. Exchanged by IR on 09/16 due to occlusion. [place] where tube could not be flushed. Exchanged [...] daily. 180 tablet 3 Blood Sugar Diagnostic ([employer] ULTRA TEST) Strip 1 each by Other [...] glucose meter kit. 1 each 0 Insulin [place], Disposable, (BD INSULIN PEN NEEDLE UF MINI) 31 x 3/16 Needle 1 Device by [facility].(Non-Drug; Combo Route) route 3 times daily as [...] IR G-Tube Check/Change 11/27/2022 Hang Cooper PA [facility] IR G-TUBE CHECK/CHANGE 03/10/2023 IR G-Tube Check/Change 03/10/2023 Geronimo Chambers, [facility] IR G-TUBE CHECK/CHANGE 04/06/2023 IR G-Tube Check/Change 04/06/2023 Gavin Carrillo MD [facility] IR G-TUBE CHECK/CHANGE 05/09/2023 IR G-Tube Check/Change [facility] IR G-TUBE CHECK/CHANGE 07/09/2023 IR G-Tube Check/Change [facility] IR G-TUBE CHECK/CHANGE 09/17/2023 IR G-Tube Check/Change 09/17/2023 Hang Cooper PA [facility] IR G-TUBE PLACEMENT 09/11/2022 IR G-Tube Placement 09/11/2022 Moustapha Hart MD [facility] IR SUTURE RELEASE 09/25/2022 IR Suture Release 09/25/2022 Yoselin Ghosh PA [facility] PERCUTANEOUS GASTROSTOMY N/A 09/11/2022 PERCUTANEOUS GASTROSTOMY performed by Aiden Flores MD at [facility] CATY PRO COLONOSCOPY, BIOPSY N/A 03/20/2016 COLONOSCOPY FLEXIBLE, WITH BX performed by David Dejesus MD at [facility] ENDOSCOPY PRO COLONOSCOPY, DIAGNOSTIC N/A 03/01/2020 COLONOSCOPY, DIAGNOSTIC performed by David Dejesus MD at [facility] ENDOSCOPY PRO ENDOSCOPIC US EXAM, ESOPH N/A 03/31/2022 UPPER EUS- ENDOSCOPIC ULTRASOUND performed by David Dejesus MD at [facility] ENDOSCOPY PRO UP GI ENDOSCOPY, BALL DIL, 30MM N/A 12/24/2022 EGD,WITH DILATION ESOPHAGUS WITH BALLOON,< 30 MM (WRVU 2.67) performed by David Dejesus [facility] ENDOSCOPY PRO UP GI ENDOSCOPY, BALL DIL, 30MM N/A 01/12/2023 EGD,WITH DILATION ESOPHAGUS WITH BALLOON,< 30 MM (WRVU 2.67) performed by David Dejesus [facility] ENDOSCOPY PRO UP GI ENDOSCOPY, BALL DIL, 30MM N/A 02/26/2023 EGD,WITH DILATION ESOPHAGUS WITH BALLOON,< 30 MM (WRVU 2.67) performed by David Dejesus [facility] ENDOSCOPY PRO UP GI ENDOSCOPY, BALL DIL, 30MM N/A 03/16/2023 EGD,WITH DILATION ESOPHAGUS WITH BALLOON,< 30 MM (WRVU 2.67) performed by David Dejesus [facility] ENDOSCOPY PRO UP GI ENDOSCOPY, BALL DIL, 30MM N/A 03/30/2023 EGD,WITH DILATION ESOPHAGUS WITH BALLOON,< 30 MM (WRVU 2.67) performed by David Dejesus [facility] ENDOSCOPY PRO UP GI ENDOSCOPY, BALL DIL, 30MM N/A 04/30/2023 EGD,WITH DILATION ESOPHAGUS WITH BALLOON,< 30 MM (WRVU 2.67) performed by David Dejesus [facility] ENDOSCOPY PRO UP GI ENDOSCOPY, BALL DIL, 30MM N/A 06/01/2023 EGD,WITH DILATION ESOPHAGUS WITH BALLOON,< 30 MM (WRVU 2.67) performed by David Dejesus MDat [facility] ENDOSCOPY PRO UP GI ENDOSCOPY, BALL DIL, 30MM N/A 08/02/2023 EGD,WITH DILATION ESOPHAGUS WITH BALLOON,< 30 MM (WRVU 2.67) performed by David Dejesus MDat [facility] ENDOSCOPY PRO UPPER GI ENDOSCOPY, BIOPSY N/A 04/03/2014 UPPER GASTROINTESTINAL ENDOSCOPY,WITH BIOPSY SINGLE OR MULTIPLE performed by David Dejesus MDat [facility] ENDOSCOPY PRO UPPER GI ENDOSCOPY, BIOPSY N/A 03/20/2016 EGD WITH BIOPSY performed by David Dejesus MD at [facility] ENDOSCOPY PRO UPPER GI ENDOSCOPY, BIOPSY N/A 11/22/2018 EGD WITH BIOPSY (WRVU 2.49) performed by David Dejesus MD at [facility] ENDOSCOPY PRO UPPER GI ENDOSCOPY, BIOPSY N/A 03/01/2020 UPPER GASTROINTESTINAL ENDOSCOPY,WITH BIOPSY SINGLE OR MULTIPLE (WRVU 2.49) performed by David Dejesus MD at [facility] ENDOSCOPY PRO UPPER GI ENDOSCOPY, BIOPSY N/A 09/23/2021 EGD WITH BIOPSY (WRVU 2.49) performed by David Dejesus MD at [facility] ENDOSCOPY PRO UPPER GI ENDOSCOPY, BIOPSY N/A 03/31/2022 EGD WITH BIOPSY (WRVU 2.49) performed by David Dejesus MD at [facility] ENDOSCOPY PRO UPPER GI ENDOSCOPY, BIOPSY N/A 07/03/2022 EGD WITH BIOPSY (WRVU 2.49) performed by David Dejesus MD at [facility] ENDOSCOPY PRO UPPER GI ENDOSCOPY, DIAGNOSTIC N/A 04/03/2014 EGD, UPPER GI ENDOSCOPY performed by David Dejesus MD at [facility] ENDOSCOPY PRO UPPER GI ENDOSCOPY, DIAGNOSTIC N/A 03/01/2020 EGD, UPPER GI ENDOSCOPY performed by David Dejesus MD at [facility] ENDOSCOPY PRO UPPER GI ENDOSCOPY, DIAGNOSTIC N/A 09/09/2022 EGD, UPPER GI ENDOSCOPY (WRVU 2.09) performed by Ayo Russ MD at [facility] Social history and habits: Social [...] 4:00 PM EDT Office Visit Cardiology at [address] [phone] Milagros Hernandez MD [facility] [place] [address] Scheduled Orders Name Type Priority Associated Diagnoses [...] Patient's reports that she was evaluated at [facility] for possible PNA, and the G-tube became [...] 09/16 due to occlusion. Patient traveled to [place] where tube could not be flushed. Exchanged [...] removed over the wire. ??A new 16 [place] balloon retained nonlow-profile gastrostomy tube was then [...] esophagus documented in this encounter Care Teams De Ionizer Operator Relationship Specialty Start Date End Date Ana Gillespie APRN [address] [place] [address] PCP - General Family Medicine 02/03/19 documented as of this encounter
--- OUTSIDE RECORDS SUMMARY | 2024-02-05 12:44 | XMS_ITS | Encounter Summary ---
Author Organization [facility] Address [facility] [address] Care Team Providers Care Amphibious Operations Officer Name Role Phone Ana Gillespie APRN Primary Care Provider Encounter Details Date Type Department Care Team (Late st Contact Info) Description 06/15/2023 Telephone [place] [phone] Niru Mary Social History Tobacco Use Types [...] PM EDT Office Visit Cardiology at [address] [phone] Milagros Hernandez MD [facility] CARDIOLOGY [place] [phone] Scheduled Procedures Name Priority Associated Diagnoses Date/Ti me EGD, UPPER GI ENDOSCOPY (WRV U 2.09) Peptic stricture of esophagus documented as of this encounter Visit Diagnoses Not on filedocumented in this encounter Care Teams Amphibious Operations Officer Relationship Specialty Start Date End Date Ana Gillespie APRN [address] [place] [address] PCP - General Family Medicine 02/03/19 documented as of this encounter
--- OUTSIDE RECORDS SUMMARY | 2024-02-05 12:44 | XMS_ITS | Encounter Summary ---
Author Organization [facility] [place] [address] Care Team Providers Care Electric Powerline Examiner Name Role Phone Ana Gillespie APRN Primary Care Provider [phone] Encounter Details Date Type Department Care Team [...] PM EDT Office Visit Cardiology at [address] [address] Milagros Hernandez MD [facility] [place] [address] Scheduled Procedures Name Priority Associated Diagnoses Date/Ti me EGD, UPPER GI ENDOSCOPY (WRV U 2.09) Peptic stricture of esophagus documented as of this encounter Visit Diagnoses Not on filedocumented in this encounter Care Teams Electric Powerline Examiner Relationship Specialty Start Date End Date Ana Gillespie APRN [address] [place] [address] PCP - General Family Medicine 02/03/19 documented as of this encounter
--- OUTSIDE RECORDS SUMMARY | 2024-02-05 12:44 | XMS_ITS | Encounter Summary ---
Author Organization [facility] [place] [address] Care Team Providers Care Developer Programmer Name Role Phone Ana Gillespie VAUGHN Primary Care Provider [phone] Encounter Details Date Type Department Care Team (Late st Contact Info) Description 08/10/2023 [place] [address] Chiquita James, RN Social History [...] 4:00 PM EDT Office Visit Cardiology at [address] [phone] Milagros Hernandez MD [facility] [place] [address] Scheduled Procedures Name Priority Associated Diagnoses Date/Ti me EGD, UPPER GI ENDOSCOPY (WRV U 2.09) Peptic stricture of esophagus documented as of this encounter Visit Diagnoses Not on filedocumented in this encounter Care Teams Developer Programmer Relationship Specialty Start Date End Date Ana Gillespie APRN [address] [place] [address] PCP - General Family Medicine 02/03/19 documented as of this encounter
--- OUTSIDE RECORDS SUMMARY | 2024-02-05 12:44 | XMS_ITS | Encounter Summary ---
Author Organization [facility] Address [facility] [place] [address] Care Team Providers Care Ball Shagger Name Role Phone Ana Gillespie APRN Primary Care Provider [phone] Encounter Details Date Type Department Care Team (Late st Contact Info) Description 08/25/2023 [place] [phone] Niru Mary Social History Tobacco Use Types [...] 4:00 PM EDT Office Visit Cardiology at [address] [phone] Milagros Hernandez MD [facility] [place] [address] Scheduled Procedures Name Priority Associated Diagnoses Date/Ti me EGD, UPPER GI ENDOSCOPY (WRV U 2.09) Peptic stricture of esophagus documented as of this encounter Visit Diagnoses Not on filedocumented in this encounter Care Teams Ball Shagger Relationship Specialty Start Date End Date Ana Gillespie APRN [address] [place] [address] PCP - General Family Medicine 02/03/19 documented as of this encounter
--- OUTSIDE RECORDS SUMMARY | 2024-02-05 12:44 | XMS_ITS | Encounter Summary ---
Author Organization [facility] Address [facility] [place] [address] Care Team Providers Care Small Animal Veterinarian Name Role Phone Ana Gillespie VAUGHN Primary Care Provider [phone] Encounter Details Date Type Department Care Team (Late st Contact Info) Description 07/04/2023 Telephone Cardiology at [address] [place] [phone] Gaby Lockett APRN [facility] [place] [address] Social History Tobacco Use Types Packs/Day Years [...] received a call from Dr. Trimble from [facility] through the . Per Dr. Trimble: Overnight [...] 4:00 PM EDT Office Visit Cardiology at [address] [phone] Milagros Hernandez MD [facility] [place] [address] Scheduled Procedures Name Priority Associated Diagnoses Date/Ti me EGD, UPPER GI ENDOSCOPY (WRV U 2.09) Peptic stricture of esophagus documented as of this encounter Visit Diagnoses Not on filedocumented in this encounter Care Teams Small Animal Veterinarian Relationship Specialty Start Date End Date Ana Gillespie APRN [address] [place] [address] PCP - General Family Medicine 02/03/19 documented as of this encounter
--- OUTSIDE RECORDS SUMMARY | 2024-02-05 12:44 | XMS_ITS | Encounter Summary ---
Author Organization [facility] [place] [address] Care Team Providers Care Station Chief Name Role Phone Ana Gillespie APRN Primary Care Provider [phone] Encounter Details Date Type Department Care Team (Late st Contact Info) Description 07/04/2023 External [place] [phone] Social History Tobacco Use Types Packs/Day Years [...] PM EDT Office Visit Cardiology at [address] [phone] Milagros Hernandez MD [facility] [place] [address] Scheduled Procedures Name Priority Associated Diagnoses Date/Ti me EGD, UPPER GI ENDOSCOPY (WRV U 2.09) Peptic stricture of esophagus documented as of this encounter Procedures Procedure Name Priority Date/Time Associated Diagnosis Comments ECG SCAN Routine 07/04/2023 8:56 AM EST documented in this encounter Results * Scan Doc: ECG (07/04/2023 8:56 AM EST) Historical Provider MD MEDIA MGR SCAN EX T ORDR/RSLT documented in this encounter Visit Diagnoses Not on filedocumented in this encounter Care Teams Station Chief Relationship Specialty Start Date End Date Ana Gillespie APRN [address] [place] [address] PCP - General Family Medicine 02/03/19 documented as of this encounter
--- OUTSIDE RECORDS SUMMARY | 2024-02-05 12:44 | XMS_ITS | Encounter Summary ---
Author Organization [facility] [address] Care Team Providers Care General Internist And Physician Leader Name Role Phone Ana Gillespie VAUGHN Primary Care Provider [phone] Reason for Referral * Diagnostic Test (Routine) - Closed Specialty Diagnoses / Procedures Referred By Contjovani t Referred To Contact Radiology Diagnoses Problem with gastrostomy tube 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 Procedures IR Site Check In Recovery Room Hang Cooper PA [facility] [place] [address] [facility] [place] [address] Referral ID Status Reason Start Date Expiration Date V isits Requested Visits Authorized [id number] Closed Specialty Service Requested 09/20/2023 03/22/2025 1 1 Encounter Details Date Type Department Care Team (Late st Contact Info) Description 09/20/2023 Notes [place] [address] Hang Cooper PA [facility] [place] [address] Social History Tobacco Use Types [...] PM EDT Office Visit Cardiology at [address] [address] Milagros Hernandez MD [facility] [place] [address] Scheduled Orders Name Type Priority Associated Diagnoses [...] esophagus documented in this encounter Care Teams General Internist And Physician Leader Relationship Specialty Start Date End Date Ana Gillespie APRN [address] [place] [address] PCP - General Family Medicine 02/03/19 documented as of this encounter
--- OUTSIDE RECORDS SUMMARY | 2024-02-05 12:44 | XMS_ITS | Encounter Summary ---
Author Organization [facility] Address [facility] [place] [address] Care Team Providers Care Garbage Stoker Name Role Phone Ana Gillespie APRN Primary Care Provider [phone] Encounter Details Date Type Department Care Team (Late st Contact Info) Description 07/22/2023 Telephone [place] [phone] Niru Mary Social History Tobacco Use Types [...] PM EDT Office Visit Cardiology at [address] [phone] Milagros Hernandez MD [facility] CARDIOLOGY [place] [phone] Scheduled Procedures Name Priority Associated Diagnoses Date/Ti me EGD, UPPER GI ENDOSCOPY (WRV U 2.09) Peptic stricture of esophagus documented as of this encounter Visit Diagnoses Not on filedocumented in this encounter Care Teams Garbage Stoker Relationship Specialty Start Date End Date Ana Gillespie APRN [address] [place] [address] PCP - General Family Medicine 02/03/19 documented as of this encounter
--- OUTSIDE RECORDS SUMMARY | 2024-02-05 12:44 | XMS_ITS | Encounter Summary ---
Author Organization [facility] [place] [address] Care Team Providers Care Manager Eligibility Name Role Phone Ana Gillespie VAUGHN Primary Care Provider [phone] Encounter Details Date Type Department Care Team (Late st Contact Info) Description 06/11/2023 Telephone [place] [address] Chiquita James, RN Social History [...] PM EDT Office Visit Cardiology at [address] [phone] Milagros Hernandez MD [facility] [place] [address] Scheduled Procedures Name Priority Associated Diagnoses Date/Ti me EGD, UPPER GI ENDOSCOPY (WRV U 2.09) Peptic stricture of esophagus documented as of this encounter Visit Diagnoses Not on filedocumented in this encounter Care Teams Manager Eligibility Relationship Specialty Start Date End Date Ana Gillespie APRN [address] [place] [address] PCP - General Family Medicine 02/03/19 documented as of this encounter
--- OUTSIDE RECORDS SUMMARY | 2024-02-05 12:44 | XMS_ITS | Encounter Summary ---
Author Organization [facility] Address [facility] [place] [address] Care Team Providers Care Drafting Layout Man Name Role Phone Ana Gillespie APRN Primary Care Provider [phone] Reason for Visit * Reason Onset Date Comments Medication Refill 07/12/2023 Encounter Details Date Type Department Care Team (Late st Contact Info) Description 07/12/2023 Refill Cardiology at [address] [phone] Milagros Hernandez MD [facility] [place] [address] Medication Refill Social History Tobacco Use Types [...] 4:00 PM EDT Office Visit Cardiology at [address] [phone] Milagros Hernandez MD [facility] [place] [address] Scheduled Procedures Name Priority Associated Diagnoses Date/Ti me EGD, UPPER GI ENDOSCOPY (WRV U 2.09) Peptic stricture of esophagus documented as of this encounter Visit Diagnoses Diagnosis HFrEF (heart failure with reduced ejection fraction) documented in this encounter Care Teams Drafting Layout Man Relationship Specialty Start Date End Date Ana Gillespie APRN [address] [place] [address] PCP - General Family Medicine 02/03/19 documented as of this encounter
--- OUTSIDE RECORDS SUMMARY | 2024-02-05 12:44 | XMS_ITS | Encounter Summary ---
Author Organization [facility] [place] [address] Care Team Providers Care Ultimate Hoops Referee Name Role Phone Ana Gillespie VAUGHN Primary Care Provider [phone] Encounter Details Date Type Department Care Team (Late st Contact Info) Description 09/08/2023 Telephone [place] [phone] Parris Maravilla Social History Tobacco Use Types [...] returned, it can be handled by: Endo Room Attendants please park to me documented in this encounter Plan of Treatment Upcoming Encounters Date Type Department Care Team (Late st Contact Info) Description 03/10/2024 4:00 PM EDT Office Visit Cardiology at [address] [address] Milagros Hernandez MD [facility] [place] [address] Scheduled Procedures Name Priority Associated Diagnoses Date/Ti me EGD, UPPER GI ENDOSCOPY (WRV U 2.09) Peptic stricture of esophagus documented as of this encounter Visit Diagnoses Not on filedocumented in this encounter Care Teams Ultimate Hoops Referee Relationship Specialty Start Date End Date Ana Gillespie APRN [address] [place] [address] PCP - General Family Medicine 02/03/19 documented as of this encounter
--- OUTSIDE RECORDS SUMMARY | 2024-02-05 12:44 | XMS_ITS | Encounter Summary ---
Author Organization [facility] Address [facility] [place] [address] Care Team Providers Care Evp Marketing Name Role Phone Ana Gillespie VAUGHN Primary Care Provider [phone] Encounter Details Date Type Department Care Team (Late st Contact Info) Description 08/02/2023 11:00 AM EDT - 08/02/2023 12:00 PM EDT Surgery [place] [phone] David Dejesus MD [facility] [place] [address] EGD,WITH DILATION ESOPHAGUS WITH BALLOON,< 30 MM [...] the day after the procedure, use an zlku-bzc-zwekqvp spray to numb your throat. Sucking on [...] occurs, please contact your Doctor. Please call [phone] before 8pm Mon-Fri with problems, questions or concerns. If you call after 8pm or on weekends, call the Hospital at [phone] and ask to speak to the Insole Department Worker computer console operator and the twister operator will contact that person for you. When should you call for help? Call [phone] anytime you think you may need emergency [...] After Visit Summary and more online at [email or web address] If you would like to provide feedback about your hospital experience, please call the Office of Patient and Family Relations at . If you have received this After Visit Summary in error, please immediately return it in person to the department, or notify the [facility] Privacy Office by calling toll free at between the hours of 8AM and 5PM to arrange for our retrieval of the documents at no cost to you. Content Version: 12.2 ?? 3007-1936 [employer]. Care instructions adapted under license by [facility]. If you have questions about a medical condition or this instruction, always ask your healthcare professional. [employer] disclaims any warranty or liability for your [...] the day after the procedure, use an ughi-yuu-hfhtwda spray to numb your throat. Sucking on [...] occurs, please contact your Doctor. Please call [phone] before 8pm Mon-Fri with problems, questions or concerns. If you call after 8pm or on weekends, call the Hospital at [phone] and ask to speak to the Insole Department Worker computer console operator and the twister operator will contact that person for you. When should you call for help? Call [phone] anytime you think you may need emergency [...] After Visit Summary and more online at [email or web address] If you would like to provide feedback about your hospital experience, please call the Office of Patient and Family Relations at . If you have received this After Visit Summary in error, please immediately return it in person to the department, or notify the [facility] Privacy Office by calling toll free at between the hours of 8AM and 5PM to arrange for our retrieval of the documents at no cost to you. Content Version: 12.2 ?? 4259-3580 [employer]. Care instructions adapted under license by [facility]. If you have questions about a medical condition or this instruction, always ask your healthcare professional. [employer] disclaims any warranty or liability for your [...] meter kit. 1 each 0 12/14/2014 Insulin [place], Disposable, (BD INSULIN PEN NEEDLE UF MINI) 31 x 07/23 NeedleIndications:Josefina betes mellitus type 2, uncontrolled 1 Device by [facility].(Non-Drug; Combo Route) route [...] 4:00 PM EDT Office Visit Cardiology at [address] [address] Milagros Hernandez MD [facility] [place] [address] Scheduled Procedures Name Priority Associated Diagnoses Date/Ti ri EGD, UPPER GI ENDOSCOPY (WRV U 2.09) Peptic stricture of esophagus documented as of this encounter Procedures Procedure Name Priority Date/Time Associated Diagnosis Comments Up Gi Endoscopy, Ball Dil, 30Mm (35675) 08/02/2023 11:01 AM EDT Peptic stricture of esophagus UPPER GI ENDOSCOPY Routine 08/02/2023 10 :49 AM EDT POCT GLUCOSE Routine 08/02/2023 9:54 AM EDT documented in this encounter Results * UPPER GI ENDOSCOPY (08/02/2023 10:49 AM EDT) [facility] UPPER GI ENDOSCOPY [facility] Endoscopy Procedure Date: 08/02/2023 10:49 AM ? Patient Name: Jennifer Irving ? Date of : 1960 ? Age: 63 ? Order #: [id number] ? Instrument Name: [id number] ? Procedure: ? Upper GI endoscopy Indications: ? Peptic Stricture Providers: ? David Dejesus MD, aPrminder Craig ? Ayo Mao, ? Tapan Camargo Referring MD: ?Ana Young Medicines: ? General Anesthesia [...] GENERAL SURGICAL ORD ERABLES Performing Organization Address [facility] de Phone Number PROVATION * POCT Glucose (08/02/2023 9:54 AM EDT) Glucose, POC 81 65 - 199 mg/dL [facility] Comment: Supplemental ranges: <140 mg/dL before meals <180 mg/dL all other times of the day Blood 08/02/2023 9:54 AM EDT 08/02/2023 9:54 AM EDT David Dejesus MD POINT OF CARE TEST ORDERABLES Performing Organization Address [facility] Co de Phone Number [facility] [place] [address] documented in this encounter Visit Diagnoses Diagnosis [...] CRNA) documented in this encounter Care Teams Evp Marketing Relationship Specialty Start Date End Date Ana Gillespie APRN [address] [place] [address] PCP - General Family Medicine 02/03/19 documented as of this encounter
--- OUTSIDE RECORDS SUMMARY | 2024-02-05 12:44 | XMS_ITS | Encounter Summary ---
Author Organization [facility] [address] Care Team Providers Care Mechanical Systems Engineer Name Role Phone Ana Gillespie VAUGHN Primary Care Provider [phone] Encounter Details Date Type Department Care Team (Late st Contact Info) Description 09/02/2023 Telephone [place] [phone] Chiquita James, RN Social History Tobacco Use [...] PM EDT Office Visit Cardiology at [address] [phone] Milagros Hernandez MD [facility] [place] [address] Scheduled Procedures Name Priority Associated Diagnoses Date/Ti me EGD, UPPER GI ENDOSCOPY (WRV U 2.09) Peptic stricture of esophagus documented as of this encounter Visit Diagnoses Not on filedocumented in this encounter Care Teams Mechanical Systems Engineer Relationship Specialty Start Date End Date Ana Gillespie APRN [address] [place] [address] PCP - General Family Medicine 02/03/19 documented as of this encounter
--- OUTSIDE RECORDS SUMMARY | 2024-02-05 12:44 | XMS_ITS | Encounter Summary ---
[place] [address] Care Team Providers Care Salesperson Automobiles Name Role Phone Ana Gillespie APRN Primary Care Provider [phone] Reason for Visit * Reason Onset Date Comments Prior Authorization 07/21/2023 Encounter Details Date Type Department Care Team (Late st Contact Info) Description 07/21/2023 Telephone [place] [address] Radha Urena Prior Authorization Social History Tobacco [...] PM EDT Office Visit Cardiology at [address] [address] [facility] [place] [address] Scheduled Procedures Name Priority Associated Diagnoses Date/Ti me EGD, UPPER GI ENDOSCOPY (WRV U 2.09) Peptic stricture of esophagus documented as of this encounter Visit Diagnoses Not on filedocumented in this encounter Care Teams Salesperson Automobiles Relationship Specialty Start Date End Date Ana Gillespie APRN [address] [place] [address] PCP - General Family Medicine 02/03/19 documented as of this encounter
--- OUTSIDE RECORDS SUMMARY | 2024-02-05 12:44 | XMS_ITS | Encounter Summary ---
Author Organization [facility] [place] [address] Care Team Providers Care Railroad Operator Name Role Phone Ana Gillespie VAUGHN Primary Care Provider [phone] Encounter Details Date Type Department Care Team (Late st Contact Info) Description 07/28/2023 [place] [phone] Niru Mary Social History Tobacco Use Types [...] - 07/28/2023 5:13 PM EDT Copied from [facility] #[id number]. Topic: Specialty Dept CRMs - Generic Call [...] 4:00 PM EDT Office Visit Cardiology at [address] [address] Milagros Hernandez MD [facility] [place] [address] Scheduled Procedures Name Priority Associated Diagnoses Date/Ti me EGD, UPPER GI ENDOSCOPY (WRV U 2.09) Peptic stricture of esophagus documented as of this encounter Visit Diagnoses Not on filedocumented in this encounter Care Teams Railroad Operator Relationship Specialty Start Date End Date Ana Gillespie APRN [address] [place] [address] PCP - General Family Medicine 02/03/19 documented as of this encounter
--- OUTSIDE RECORDS SUMMARY | 2024-02-05 12:44 | XMS_ITS | Encounter Summary ---
Author Organization [facility] Address [facility] [place] [address] Care Team Providers Care Rejogger Name Role Phone Ana Gillespie APRN Primary Care Provider [phone] Encounter Details Date Type Department Care Team (Late st Contact Info) Description 10/05/2023 Telephone [place] [phone] Niru Mary Social History Tobacco Use Types [...] 4:00 PM EDT Office Visit Cardiology at [address] [phone] Milagros Hernandez MD [facility] [place] [address] Scheduled Procedures Name Priority Associated Diagnoses Date/Ti me EGD, UPPER GI ENDOSCOPY (WRV U 2.09) Peptic stricture of esophagus documented as of this encounter Visit Diagnoses Not on filedocumented in this encounter Care Teams Rejogger Relationship Specialty Start Date End Date Ana Gillespie APRN [address] [place] [address] PCP - General Family Medicine 02/03/19 documented as of this encounter
--- OUTSIDE RECORDS SUMMARY | 2024-02-05 12:44 | XMS_ITS | Encounter Summary ---
Author Organization Formerly [facility] [place] [address] Care Team Providers Care Metal Container Maker Name Role Phone Ana Gillespie VAUGHN Primary Care Provider [phone] Reason for Referral * Diagnostic Test (Routine) - Closed Specialty Diagnoses / Procedures Referred By Esperanza rodríguez Referred To Contact Radiology Diagnoses Neuroleptic-induced parkinsonism Procedures IR G-Tube Check/Change Fannie Conde PA [facility] [place] [address] [place] [address] Referral ID Status Reason Start Date Expiration Date V isits Requested Visits Authorized [id number] Closed Specialty Service Requested 07/06/2023 01/03/2025 1 1 Encounter Details Date Type Department Care Team (Late st Contact Info) Description 07/06/2023 [place] [address] Fannie Conde PA [facility] [place] [address] Social History Tobacco Use Types Packs/Day Years [...] catheter with tube feeds, who presents to Interv Radiology to undergo check/exchange of G-tube. Patient's [...] glucose meter kit. 1 each 0 Insulin [place], Disposable, (BD INSULIN PEN NEEDLE UF MINI) 31 x 3/16 Needle 1 Device by [facility] [place] [facility].(Non-Drug; Combo Route) route 3 [...] IR G-Tube Check/Change 11/27/2022 Hang Cooper PA [facility] RAD IR G-TUBE CHECK/CHANGE 03/10/2023 IR G-Tube Check/Change 03/10/2023 Geronimo Chambers DO [facility] RAD IR G-TUBE CHECK/CHANGE 04/06/2023 IR G-Tube Check/Change 04/06/2023 Gavin Carrillo MD [facility] RAD IR G-TUBE CHECK/CHANGE 05/09/2023 IR G-Tube Check/Change [facility] IR G-TUBE PLACEMENT 09/11/2022 IR G-Tube Placement 09/11/2022 Moustapha Hart MD [facility] RAD IR SUTURE RELEASE 09/25/2022 IR Suture Release 09/25/2022 Yoselin Ghosh PA [facility] RAD PERCUTANEOUS GASTROSTOMY N/A 09/11/2022 PERCUTANEOUS GASTROSTOMY performed by Aiden Flores MD at [facility] CATY PRO COLONOSCOPY, BIOPSY N/A 03/20/2016 COLONOSCOPY FLEXIBLE, WITH BX performed by David Dejesus MD at [facility] ENDOSCOPY PRO COLONOSCOPY, DIAGNOSTIC N/A 03/01/2020 COLONOSCOPY, DIAGNOSTIC performed by David Dejesus MD at [facility] ENDOSCOPY PRO ENDOSCOPIC US EXAM, ESOPH N/A 03/31/2022 UPPER EUS- ENDOSCOPIC ULTRASOUND performed by David Dejesus MD at [facility] ENDOSCOPY PRO UP GI ENDOSCOPY, BALL DIL, 30MM N/A 12/24/2022 EGD,WITH DILATION ESOPHAGUS WITH BALLOON,< 30 MM (WRVU 2.67) performed by David Dejesus MDat [facility] ENDOSCOPY PRO UP GI ENDOSCOPY, BALL DIL, 30MM N/A 01/12/2023 EGD,WITH DILATION ESOPHAGUS WITH BALLOON,< 30 MM (WRVU 2.67) performed by David Dejesus [facility] ENDOSCOPY PRO UP GI ENDOSCOPY, BALL DIL, 30MM N/A 02/26/2023 EGD,WITH DILATION ESOPHAGUS WITH BALLOON,< 30 MM (WRVU 2.67) performed by David Dejesus [facility] ENDOSCOPY PRO UP GI ENDOSCOPY, BALL DIL, 30MM N/A 03/16/2023 EGD,WITH DILATION ESOPHAGUS WITH BALLOON,< 30 MM (WRVU 2.67) performed by David Dejesus [facility] ENDOSCOPY PRO UP GI ENDOSCOPY, BALL DIL, 30MM N/A 03/30/2023 EGD,WITH DILATION ESOPHAGUS WITH BALLOON,< 30 MM (WRVU 2.67) performed by David Dejesus [facility] ENDOSCOPY PRO UP GI ENDOSCOPY, BALL DIL, 30MM N/A 04/30/2023 EGD,WITH DILATION ESOPHAGUS WITH BALLOON,< 30 MM (WRVU 2.67) performed by David Dejesus [facility] ENDOSCOPY PRO UP GI ENDOSCOPY, BALL DIL, 30MM N/A 06/01/2023 EGD,WITH DILATION ESOPHAGUS WITH BALLOON,< 30 MM (WRVU 2.67) performed by David Dejesus [facility] ENDOSCOPY PRO UPPER GI ENDOSCOPY, BIOPSY N/A 04/03/2014 UPPER GASTROINTESTINAL ENDOSCOPY,WITH BIOPSY SINGLE OR MULTIPLE performed by David Dejesus [facility] ENDOSCOPY PRO UPPER GI ENDOSCOPY, BIOPSY N/A 03/20/2016 EGD WITH BIOPSY performed by David Dejesus MD at [facility] ENDOSCOPY PRO UPPER GI ENDOSCOPY, BIOPSY N/A 11/22/2018 EGD WITH BIOPSY (WRVU 2.49) performed by David Dejesus MD at [facility] ENDOSCOPY PRO UPPER GI ENDOSCOPY, BIOPSY N/A 03/01/2020 UPPER GASTROINTESTINAL ENDOSCOPY,WITH BIOPSY SINGLE OR MULTIPLE (WRVU 2.49) performed by David Dejesus MD at [facility] ENDOSCOPY PRO UPPER GI ENDOSCOPY, BIOPSY N/A 09/23/2021 EGD WITH BIOPSY (WRVU 2.49) performed by David Dejesus MD at [facility] ENDOSCOPY PRO UPPER GI ENDOSCOPY, BIOPSY N/A 03/31/2022 EGD WITH BIOPSY (WRVU 2.49) performed by David Dejesus MD at [facility] ENDOSCOPY PRO UPPER GI ENDOSCOPY, BIOPSY N/A 07/03/2022 EGD WITH BIOPSY (WRVU 2.49) performed by David Dejesus MD at [facility] ENDOSCOPY PRO UPPER GI ENDOSCOPY, DIAGNOSTIC N/A 04/03/2014 EGD, UPPER GI ENDOSCOPY performed by David Dejesus MD at [facility] ENDOSCOPY PRO UPPER GI ENDOSCOPY, DIAGNOSTIC N/A 03/01/2020 EGD, UPPER GI ENDOSCOPY performed by David Dejesus MD at [facility] ENDOSCOPY PRO UPPER GI ENDOSCOPY, DIAGNOSTIC N/A 09/09/2022 EGD, UPPER GI ENDOSCOPY (WRVU 2.09) performed by Ayo Russ MD at [facility] MAIN OR Social History and Habits: [...] PM EDT Office Visit Cardiology at [address] [address] Milagros Hernandez MD [facility] [place] [address] Scheduled Procedures Name Priority Associated Diagnoses Date/Ti ms EGD, UPPER GI ENDOSCOPY (WRV U 2.09) [...] procedure was performed under fluoroscopic guidance. ??A painter tumbling barrel fluoroscopic image was obtained. ??Contrast was injected through the gastrostomy catheter and another fluoroscopic image was obtained. ??Through the catheter, an 0.035 Amplatz wire was advanced. ??The catheter was removed. ??Over the wire, a new 16-Fr pzm-fmb-vbxzkdj (ESTRELLITA) gastrostomy catheter was advanced. ??The retention [...] freely than typical. Exchange for new 16-Fr pnj-yqd-piqkjkt (ESTRELLITA) gastrostomy catheter within the stomach; retention [...] Parkinsonism documented in this encounter Care Teams Metal Container Maker Relationship Specialty Start Date End Date Ana Gillespie APRN [address] [place] [address] PCP - General Family Medicine 02/03/19 documented as of this encounter
--- OUTSIDE RECORDS SUMMARY | 2024-02-05 12:44 | XMS_ITS | Encounter Summary ---
Author Organization Pending Sale To [facility] Address [facility] [place] [address] Care Team Providers Care Weight Clerk Name Role Phone Ana Gillespie VAUGHN Primary Care Provider [phone] Encounter Details Date Type Department Care Team (Latest Contact Info) Description 10/07/2023 9:20 AM EDT - 10/07/2023 12:03 PM EDT Hospital Encounter [place] [address] David Dejesus MD [facility] [place] [address] Discharge Disposition: Home Social History Tobacco Use [...] the day after the procedure, use an vngz-oqb-lrmhfph spray to numb your throat. Sucking on [...] occurs, please contact your Doctor. Please call [phone] before 8pm Mon-Fri with problems, questions or concerns. If you call after 8pm or on weekends, call the Hospital at [phone] and ask to speak to the Corner Former farm operations manager and the slurry tank operator will contact that person for you. When should you call for help? Call [phone] anytime you think you may need emergency [...] any problems. Where can you learn more? [facility] View your After Visit Summary and more online at [email or web address] If you would like to provide feedback about your hospital experience, please call the Office of Patient and Family Relations at . If you have received this After Visit Summary in error, please immediately return it in person to the department, or notify the [facility] Privacy Office by calling toll free at between the hours of 8AM and 5PM to arrange for our retrieval of the documents at no cost to you. Content Version: 12.2 ?? [phone] [email or web address]. Care instructions adapted under license by [facility]. If you have questions about a medical condition or this instruction, always ask your healthcare professional. paOnde disclaims any warranty or liability for your [...] the day after the procedure, use an nyzr-ezb-ykdiciv spray to numb your throat. Sucking on [...] occurs, please contact your Doctor. Please call [phone] before 8pm Mon-Fri with problems, questions or concerns. If you call after 8pm or on weekends, call the Hospital at [phone] and ask to speak to the Corner Former farm operations manager and the slurry tank operator will contact that person for you. [...] any problems. Where can you learn more? [facility] View your After Visit Summary and more online at [email or web address] If you would like to provide feedback about your hospital experience, please call the Office of Patient and Family Relations at . If you have received this After Visit Summary in error, please immediately return it in person to the department, or notify the [facility] Privacy Office by calling toll free at between the hours of 8AM and 5PM to arrange for our retrieval of the documents at no cost to you. Content Version: 12.2 ?? [phone] paOnde. Care instructions adapted under license by [facility]. If you have questions about a medical condition or this instruction, always ask your healthcare professional. paOnde disclaims any warranty or liability for your [...] meter kit. 1 each 0 12/14/2014 Insulin [place], Disposable, (BD INSULIN PEN NEEDLE UF MINI) 31 x 07/23 NeedleIndications:Josefina betes mellitus type 2, uncontrolled [address] [facility] [...] glucose meter kit. 1 each 0 Insulin [place], Disposable, (BD INSULIN PEN NEEDLE UF MINI) [...] PM EDT Office Visit Cardiology at [address] [address] Milagros Hernandez MD [facility] [place] [place] [address] Scheduled Procedures Name Priority Associated Diagnoses Date/Ti me EGD, UPPER GI ENDOSCOPY (WRV U 2.09) Peptic stricture of esophagus documented as of this encounter Procedures Procedure Name Priority Date/Time Associated Diagnosis Comments Up Gi Endoscopy, Jes W Guide (67005) 10/07/2023 10:44 AM EDT Peptic stricture of esophagus UPPER GI ENDOSCOPY Routine 10/07/2023 10 :34 AM EDT documented in this encounter Results * UPPER GI ENDOSCOPY (10/07/2023 10:34 AM EDT) UPPER GI ENDOSCOPY [facility] Endoscopy Procedure Date: 10/07/2023 10:34 AM ? Patient Name: Jennifer Irving ? Date of : 1960 ? Age: 63 ? Order #: [id number] ? Instrument Name: [id number] ? Procedure: ? Upper GI endoscopy Indications: [...] RN) documented in this encounter Care Teams Weight Clerk Relationship Specialty Start Date End Date Ana Gillespie APRN [address] [place] [address] PCP - General Family Medicine 02/03/19 documented as of this encounter
--- OUTSIDE RECORDS SUMMARY | 2024-02-05 12:44 | XMS_ITS | Encounter Summary ---
Author Organization Formerly [facility] [place] [address] Care Team Providers Care Fiber Optics Supervisor Name Role Phone Aan Gillespie VAUGHN Primary Care Provider [phone] Encounter Details Date Type Department Care Team (Latest Contact Info) Description 09/17/2023 11:55 AM EDT - 09/17/2023 11:59 PM EDT Hospital [place] [phone] Geronimo Chambers, [facility] [place] [address] Discharge Disposition: Home Social History Tobacco Use [...] meter kit. 1 each 0 12/14/2014 Insulin [place], Disposable, (BD INSULIN PEN NEEDLE UF MINI) 31 x 07/23 NeedleIndications:Josefina betes mellitus type 2, uncontrolled 1 Device by [facility]Non-Drug; Combo Route) route 3 times daily as needed. 100 each 11 12/13/2014 documented as of this encounter Progress Notes * Jamar Parsons RN - 09/17/2023 12:09 PM EDT ANGIO NURSING DATABASE Name: Jennifer Irving Date of : 1960 AGE: 63 y.o. Address: [address] [address] (home) Mobile: Telephone Information: Referring Provider: Geronimo [...] PM EDT Office Visit Cardiology at [address] [address] Milagros Hernandez MD [facility] [place] [address] Scheduled Procedures Name Priority Associated Diagnoses Date/Ti [...] mLs documented in this encounter Care Teams Fiber Optics Supervisor Relationship Specialty Start Date End Date Ana Gillespie APRN [address] [place] [address] PCP - General Family Medicine 02/03/19 documented as of this encounter
--- OUTSIDE RECORDS SUMMARY | 2024-02-05 12:44 | XMS_ITS | Encounter Summary ---
Author Organization [facility] [place] [address] Care Team Providers Care Electromagnet Crane Operator Name Role Phone Ana Gillespie APRN Primary Care Provider [phone] Encounter Details Date Type Department Care Team (Late st Contact Info) Description 06/18/2023 Orders [place] [phone] Noe Cuenca MD [facility] [place] [address] Hypoxemia (Primary Dx) Social History Tobacco Use [...] PM EDT Office Visit Cardiology at [address] [phone] Milagros Hernandez MD [facility] [place] [address] Scheduled Procedures Name Priority Associated Diagnoses Date/Ti me EGD, UPPER GI ENDOSCOPY (WRV U 2.09) Peptic stricture of esophagus documented as of this encounter Results * Common Pulmonary Function [...] PFT FEV1/FVC Pre-BD Z-Score -0.14 COMPAS PFT HAU08-84 Actual Pre-BD 1.66 % COMPAS PFT JBZ41-63 Predicted 1.94 % COMPAS PFT IGV89-92 Pre-BD % of Predicted 86 % COMPAS PFT ZAR32-37 Pre-BD Z-Score -0.41 COMPAS PFT DLCO Hb [...] documented in this encounter Visit Diagnoses Diagnosis Hypoxemia- Primary Hypoxemia documented in this encounter Care Teams Electromagnet Crane Operator Relationship Specialty Start Date End Date Ana Gillespie APRN [address] [place] [address] PCP - General Family Medicine 02/03/19 documented as of this encounter
--- OUTSIDE RECORDS SUMMARY | 2024-02-05 12:44 | XMS_ITS | Encounter Summary ---
Author Organization [facility] [place] [address] Care Team Providers Care Carburizer Name Role Phone Ana Gillespie CARBON PAPER MACHINE OPERATOR Primary Care Provider [phone] Encounter Details Date Type Department Care Team (Late st Contact Info) Description 09/02/2023 Telephone [place] [address] Parris Maravilla Social History Tobacco [...] returned, it can be handled by: Endo [facility] Hospitalist please park to me documented in this encounter Plan of Treatment Upcoming Encounters Date Type Department Care Team (Late st Contact Info) Description 03/10/2024 4:00 PM EDT Office Visit Cardiology at [address] [phone] Milagros Hernandez MD [facility] [place] [address] Scheduled Procedures Name Priority Associated Diagnoses Date/Ti me EGD, UPPER GI ENDOSCOPY (WRV U 2.09) Peptic stricture of esophagus documented as of this encounter Visit Diagnoses Not on filedocumented in this encounter Care Teams Carburizer Relationship Specialty Start Date End Date Ana Gillespie APRN [address] [place] [address] PCP - General Family Medicine 02/03/19 documented as of this encounter
--- OUTSIDE RECORDS SUMMARY | 2024-02-05 12:44 | XMS_ITS | Encounter Summary ---
Author Organization Formerly [facility] [place] [address] Care Team Providers Care Autocad Technician Name Role Phone Ana Gillespie APRN Primary Care Provider [phone] Encounter Details Date Type Department Care Team [...] 4:00 PM EDT Office Visit Cardiology at [address] [address] Milagros Hernandez MD [facility] [place] [address] Scheduled Procedures Name Priority Associated Diagnoses Date/Ti me EGD, UPPER GI ENDOSCOPY (WRV U 2.09) Peptic stricture of esophagus documented as of this encounter Visit Diagnoses Not on filedocumented in this encounter Care Teams Autocad Technician Relationship Specialty Start Date End Date Ana Gillespie APRN [address] [place] [address] PCP - General Family Medicine 02/03/19 documented as of this encounter
--- OUTSIDE RECORDS SUMMARY | 2024-02-05 12:44 | XMS_ITS | Encounter Summary ---
Author Organization [facility] Address [facility] [place] [address] Care Team Providers Care Transitions Manager Rn Name Role Phone Ana Gillespie APRN Primary Care Provider [phone] Encounter Details Date Type Department Care Team (Late st Contact Info) Description 08/11/2023 Telephone [place] [address] Parris Maravilla Social History Tobacco [...] it can be handled by: Any Endoscopy Processing Archivist documented in this encounter Plan of Treatment Upcoming Encounters Date Type Department Care Team (Late st Contact Info) Description 03/10/2024 4:00 PM EDT Office Visit Cardiology at [address] [address] Milagros Hernandez MD [facility] [place] [address] Scheduled Procedures Name Priority Associated Diagnoses Date/Ti me EGD, UPPER GI ENDOSCOPY (WRV U 2.09) Peptic stricture of esophagus documented as of this encounter Visit Diagnoses Not on filedocumented in this encounter Care Teams Transitions Manager Rn Relationship Specialty Start Date End Date Ana Gillespie APRN [address] [place] [address] PCP - General Family Medicine 02/03/19 documented as of this encounter
--- OUTSIDE RECORDS SUMMARY | 2024-02-05 12:44 | XMS_ITS | Encounter Summary ---
Author Organization [facility] [place] [address] Care Team Providers Care Pipe Manufacture Supervisor Name Role Phone Ana Gillespie APRN Primary Care Provider [phone] Encounter Details Date Type Department Care Team (Late st Contact Info) Description 10/07/2023 10:41 AM EDT Anesthesia [place] [address] [facility] [place] [address] [facility] [place] [address] Anesthesia Record Procedure Summary Procedure Name Responsible [...] by Sergey Jordan RN PIV 10/07/23; 1041; gzfk-pst-juznaw catheter system; 20 gauge, 1 in length; [...] Procedure Summary Date: 10/07/23 Room / Location: [facility] ENDO 1 / [facility] ENDOSCOPY Anesthesia Start: 1041 Anesthesia Stop: 112 Procedure: EGD-ESOPHOGEAL DILATATION OVER GUIDE WIRE (WRVU 2.91) (Trunk) Diagnosis: Peptic stricture of esophagus (shedule one month - peptic stricture dilation) Surgeons: David Dejesus MD Responsible Provider: Anesthesia Type: MAC ASA Status: 3 All Anesthesia Providers: Student Nurse Sales Driver: Zenia Montiel Vitals Value Taken Time BP 148/72 10/07/23 1140 Temp Pulse Resp 15 10/07/23 1140 SpO2 100 % 10/07/23 1148 Pain Level 0 10/07/23 1140 Vitals shown include unfiled device data. Patient Location: PACU/[facility] Level of Consciousness: Conscious but Sleepy [...] IR G-Tube Check/Change 11/27/2022 Hang Cooper, PA [facility] INTERVENTIONL RAD ??? IR G-TUBE CHECK/CHANGE 03/10/2023 IR G-Tube Check/Change 03/10/2023 Geronimo Chambers, DO [facility] INTERVENTIONL RAD ??? IR G-TUBE CHECK/CHANGE 04/06/2023 IR G-Tube Check/Change 04/06/2023 Gavin Carrillo MD [facility] INTERVENTIONL RAD ??? IR G-TUBE CHECK/CHANGE 05/09/2023 IR G-Tube Check/Change [facility] INTERVENTIONL RAD ??? IR G-TUBE CHECK/CHANGE 07/09/2023 IR G-Tube Check/Change [facility] INTERVENTIONL RAD ??? IR G-TUBE CHECK/CHANGE 09/17/2023 IR G-Tube Check/Change 09/17/2023 Hang Cooper PA [facility] [...] MM (WRVU 2.67) [facility]?? PRO UP GI ENDOSCOPY, BALL DIL, 30MM N/A 01/12/2023 EGD,WITH DILATION ESOPHAGUS WITH BALLOON,< 30 MM (WRVU 2.67) performed by David Dejesus MDat [facility] ENDOSCOPY ??? PRO UP GI ENDOSCOPY, BALL DIL, 30MM N/A 02/26/2023 EGD,WITH DILATION ESOPHAGUS WITH BALLOON,< 30 MM (WRVU 2.67) performed by David Dejesus [facility] ENDOSCOPY ??? PRO UP GI ENDOSCOPY, BALL DIL, 30MM N/A 03/16/2023 EGD,WITH DILATION ESOPHAGUS WITH BALLOON,< 30 MM (WRVU 2.67) performed by David Dejesus [facility] ENDOSCOPY ??? PRO UP GI ENDOSCOPY, BALL DIL, 30MM N/A 03/30/2023 EGD,WITH DILATION ESOPHAGUS WITH BALLOON,< 30 MM (WRVU 2.67) performed by David Dejesus [facility] ENDOSCOPY ??? PRO UP GI ENDOSCOPY, BALL DIL, 30MM N/A 04/30/2023 EGD,WITH DILATION ESOPHAGUS WITH BALLOON,< 30 MM (WRVU 2.67) performed by David Dejesus [facility] ENDOSCOPY ??? PRO UP GI ENDOSCOPY, BALL DIL, 30MM N/A 06/01/2023 EGD,WITH DILATION ESOPHAGUS WITH BALLOON,< 30 MM (WRVU 2.67) performed by David Dejesus [facility] ENDOSCOPY ??? PRO UP GI ENDOSCOPY, BALL DIL, 30MM N/A 08/02/2023 EGD,WITH DILATION ESOPHAGUS WITH BALLOON,< 30 MM (WRVU 2.67) performed by David Dejesus [facility] ENDOSCOPY ??? PRO UPPER GI ENDOSCOPY, BIOPSY N/A 04/03/2014 UPPER GASTROINTESTINAL ENDOSCOPY,WITH BIOPSY SINGLE OR MULTIPLE performed by David Dejesus [facility] ENDOSCOPY ??? PRO UPPER GI ENDOSCOPY, [...] risks discussed with patient. Plan discussed with FOUNTAIN SERVER. Anesthesia Screening * Anesthesia Preprocedure Evaluation - Adrianna Barron MD - 09/13/2023 6:11 PM EDT Pre-Anesthesia Evaluation for: Jennifer Irving a 63 y.o. female. Procedure(s): EGD, UPPER GI [facility]OSCOPY ([facility] Patient Active Problem List Diagnosis Date [...] IR G-Tube Check/Change 11/27/2022 Hang Cooper, ROSLYN [facility] INTERVENTIONL RAD ??? IR G-TUBE CHECK/CHANGE 03/10/2023 IR G-Tube Check/Change 03/10/2023 Geronimo Chambers, DO [facility] INTERVENTIONL RAD ??? IR G-TUBE CHECK/CHANGE 04/06/2023 IR G-Tube Check/Change 04/06/2023 Gavin Carrillo MD [facility] INTERVENTIONL RAD ??? IR G-TUBE CHECK/CHANGE 05/09/2023 IR G-Tube Check/Change [facility] INTERVENTIONL RAD ??? IR G-TUBE CHECK/CHANGE 07/09/2023 IR G-Tube Check/Change [facility] INTERVENTIONL RAD ??? [...] MM (WRVU 2.67) performed by David Dejesus [facility] ENDOSCOPY ??? PRO UP GI ENDOSCOPY, BALL DIL, 30MM N/A 01/12/2023 EGD,WITH DILATION ESOPHAGUS WITH BALLOON,< 30 MM (WRVU 2.67) performed by David Dejesus [facility] ENDOSCOPY ??? PRO UP GI ENDOSCOPY, BALL DIL, 30MM N/A 02/26/2023 EGD,WITH DILATION ESOPHAGUS WITH BALLOON,< 30 MM (WRVU 2.67) performed by David Dejesus [facility] ENDOSCOPY ??? PRO UP GI ENDOSCOPY, BALL DIL, 30MM N/A 03/16/2023 EGD,WITH DILATION ESOPHAGUS WITH BALLOON,< 30 MM (WRVU 2.67) performed by David Dejesus [facility] ENDOSCOPY ??? PRO UP GI ENDOSCOPY, BALL DIL, 30MM N/A 03/30/2023 EGD,WITH DILATION ESOPHAGUS WITH BALLOON,< 30 MM (WRVU 2.67) performed by David Dejesus [facility] ENDOSCOPY ??? PRO UP GI ENDOSCOPY, BALL DIL, 30MM N/A 04/30/2023 EGD,WITH DILATION ESOPHAGUS WITH BALLOON,< 30 MM (WRVU 2.67) performed by David Dejesus [facility] ENDOSCOPY ??? PRO UP GI ENDOSCOPY, BALL DIL, 30MM N/A 06/01/2023 EGD,WITH DILATION ESOPHAGUS WITH BALLOON,< 30 MM (WRVU 2.67) performed by David Dejesus [facility] ENDOSCOPY ??? PRO UP GI ENDOSCOPY, BALL DIL, 30MM N/A 08/02/2023 EGD,WITH DILATION ESOPHAGUS WITH BALLOON,< 30 MM (WRVU 2.67) performed by David Dejesus [facility] ENDOSCOPY ??? PRO UPPER GI ENDOSCOPY, BIOPSY N/A 04/03/2014 UPPER GASTROINTESTINAL ENDOSCOPY,WITH BIOPSY SINGLE OR MULTIPLE [facility] ??? PRO UPPER GI ENDOSCOPY, BIOPSY [...] 4:00 PM EDT Office Visit Cardiology at [address] [address] [facility] [place] [address] Scheduled Procedures Name Priority Associated Diagnoses Date/Ti [...] 2% injection syringe Intravenous, PRN, Starting on Btety 10/07/23 at 1052, Until Betty 10/07/23 at [...] Starting on Betty 10/07/23 at 1052, Until Betyt 10/07/23 at 1126, Anesthesia Intra-op Given 10/07/2023 10:52 AM EDT 150 mg succinylcholine (Anectine;Quelicin) (20 mg/mL) injection Intravenous, PRN, Starting on Betty 10/07/23 at 1054, Until Betty 10/07/23 at 1126, Anesthesia Intra-op, Routine Given 10/07/2023 10:53 AM EDT 80 mg documented in this encounter Care Teams Pipe Manufacture Supervisor Relationship Specialty Start Date End Date Ana Gillespie APRN [address] [place] [address] PCP - General Family Medicine 02/03/19 documented as of this encounter
--- OUTSIDE RECORDS SUMMARY | 2024-02-05 12:45 | XMS_ITS | Encounter Summary ---
Author Organization [facility] [place] [address] Care Team Providers Care Maintenance Person Name Role Phone Ana Gillespie APRN Primary Care Provider [phone] Encounter Details Date Type Department Care Team (Latest Contact Info) Description 04/12/2023 9:20 AM EST TH Visit (TeleHealth) Cardiology at [address] [place] [address] Milagros Hernandez MD [facility] [place] [address] Stress-induced cardiomyopathy Social History Tobacco Use Types [...] from the original note were not included. Formerly [facility] [place] [address] CARDIOLOGY OUTPATIENT NOTE PRIMARY CARE PROVIDER: Ana [...] glucose meter kit. 1 each 0 Insulin [place], Disposable, (BD INSULIN PEN NEEDLE UF MINI) 31 x 3/16 Needle 1 Device by [facility].(Non-Drug; Combo Route) route 3 times daily as [...] esophagus and esophageal stricture. She established with hi in Cardiology clinic in Jan 2023 and presents today for planned follow up. This visit is a Telehealth Visit as the patient was unable to safely make the visit in person due to inclement weather. The patient was located in [place] at the time of the visit. We [...] stricture dilations and unfortunately was [facility] the end of February shortly [...] next visit. Milagros Hernandez MD Cardiovascular Medicine [facility] 04/12/2023 documented in this encounter Plan of Treatment Upcoming Encounters Date Type Department Care Team (Late st Contact Info) Description 03/10/2024 4:00 PM EDT Office Visit Cardiology at [address] [address] Milagros Hernandez MD [facility] [place] [address] Scheduled Procedures Name Priority Associated Diagnoses Date/Ti me EGD, UPPER GI ENDOSCOPY (WRV U 2.09) Peptic stricture of esophagus documented as of this encounter Visit Diagnoses Diagnosis Stress-induced cardiomyopathy Takotsubo syndrome documented in this encounter Care Teams Maintenance Person Relationship Specialty Start Date End Date Ana Gillespie APRN [address] [place] [address] PCP - General Family Medicine 02/03/19 documented as of this encounter
--- OUTSIDE RECORDS SUMMARY | 2024-02-05 12:45 | XMS_ITS | Encounter Summary ---
Author Organization [facility] Address [facility] [place] [address] Care Team Providers Care Sap Portal Architect Name Role Phone Ana Gillespie VAUGHN Primary Care Provider [phone] Reason for Visit * Reason Onset Date Comments Questions 04/13/2023 Low BP reading Encounter Details Date Type Department Care Team (Late st Contact Info) Description 04/13/2023 Telephone Cardiology at [address] [phone] Chela Walsh, RN Questions (Low BP reading) [...] 4:00 PM EDT Office Visit Cardiology at [address] [address] Milagros Hernandez MD [facility] [place] [address] Scheduled Procedures Name Priority Associated Diagnoses Date/Ti me EGD, UPPER GI ENDOSCOPY (WRV U 2.09) Peptic stricture of esophagus documented as of this encounter Visit Diagnoses Not on filedocumented in this encounter Care Teams Sap Portal Architect Relationship Specialty Start Date End Date Ana Gillespie APRN [address] [place] [address] PCP - General Family Medicine 02/03/19 documented as of this encounter
--- OUTSIDE RECORDS SUMMARY | 2024-02-05 12:45 | XMS_ITS | Encounter Summary ---
Author Organization [facility] Address [facility] [place] [address] Care Team Providers Care Steam Pipe Fitter Name Role Phone Ana Gillespie INVESTIGATIONS CHIEF Primary Care Provider [phone] Encounter Details Date Type Department Care Team (Late st Contact Info) Description 05/25/2023 Telephone [place] [address] Chiquita James, RN Social History [...] 4:00 PM EDT Office Visit Cardiology at [address] [address] Milagros Hernandez MD [facility] [place] [address] Scheduled Procedures Name Priority Associated Diagnoses Date/Ti me EGD, UPPER GI ENDOSCOPY (WRV U 2.09) Peptic stricture of esophagus documented as of this encounter Visit Diagnoses Not on filedocumented in this encounter Care Teams Steam Pipe Fitter Relationship Specialty Start Date End Date Ana Gillespie APRN [address] [place] [address] PCP - General Family Medicine 02/03/19 documented as of this encounter
--- OUTSIDE RECORDS SUMMARY | 2024-02-05 12:45 | XMS_ITS | Encounter Summary ---
Author Organization [facility] Address [facility] [place] [address] Care Team Providers Care Spinner Tender Name Role Phone Ana Gillespie VAUGHN Primary Care Provider [phone] Encounter Details Date Type Department Care Team (Late st Contact Info) Description 04/19/2023 Telephone [place] [address] Juice Maxwell RN Social History [...] is requesting a call back to reschedule. [phone] Forwarded to scheduling. documented in this encounter Plan of Treatment Upcoming Encounters Date Type Department Care Team (Late st Contact Info) Description 03/10/2024 4:00 PM EDT Office Visit Cardiology at [address] [phone] Milagros Hernandez MD [facility] [place] [address] Scheduled Procedures Name Priority Associated Diagnoses Date/Ti me EGD, UPPER GI ENDOSCOPY (WRV U 2.09) Peptic stricture of esophagus documented as of this encounter Visit Diagnoses Not on filedocumented in this encounter Care Teams Spinner Tender Relationship Specialty Start Date End Date Ana Gillespie APRN [address] [place] [address] PCP - General Family Medicine 02/03/19 documented as of this encounter
--- OUTSIDE RECORDS SUMMARY | 2024-02-05 12:45 | XMS_ITS | Encounter Summary ---
Author Organization [facility] [place] [address] Care Team Providers Care Slab Conditioner Supervisor Name Role Phone Ana Gillespie APRN Primary Care Provider [phone] Encounter Details Date Type Department Care Team (Late Contact Info) Description 03/16/2023 Orders Only [place] [phone] David Dejesus MD [facility] [place] [address] Peptic stricture of esophagus Social History Tobacco [...] PM EDT Office Visit Cardiology at [address] [phone] Milagros Hernandez MD [facility] [place] [address] Scheduled Orders Name Type Priority Associated Diagnoses [...] esophagus documented in this encounter Care Teams Slab Conditioner Supervisor Relationship Specialty Start Date End Date Ana Gillespie APRN [address] [place] [address] PCP - General Family Medicine 02/03/19 documented as of this encounter
--- OUTSIDE RECORDS SUMMARY | 2024-02-05 12:45 | XMS_ITS | Encounter Summary ---
Author Organization [facility] [place] [address] Care Team Providers Care Home Health Outreach Coordinator Name Role Phone Ana Gillespie APRN Primary Care Provider [phone] Encounter Details Date Type Department Care Team (Casimiro shetty Contact Info) Description 04/15/2023 Telephone Cardiology at [address] [phone] Chela Walsh, RN Social History Tobacco Use Types [...] PM EDT Office Visit Cardiology at [address] [address] Milagros Hernandez MD [facility] [place] [address] Scheduled Procedures Name Priority Associated Diagnoses Date/Ti me EGD, UPPER GI ENDOSCOPY (WRV U 2.09) Peptic stricture of esophagus documented as of this encounter Visit Diagnoses Not on filedocumented in this encounter Care Teams Home Health Outreach Coordinator Relationship Specialty Start Date End Date Ana Gillespie APRN [address] [place] [address] PCP - General Family Medicine 02/03/19 documented as of this encounter
--- OUTSIDE RECORDS SUMMARY | 2024-02-05 12:45 | XMS_ITS | Encounter Summary ---
Author Organization [facility] Address [facility] [place] [address] Care Team Providers Care Baseball Inspector Name Role Phone Ana Gillespie VAUGHN Primary Care Provider [phone] Encounter Details Date Type Department Care Team (Late st Contact Info) Description 04/30/2023 3:00 PM EST - 04/30/2023 3:45 PM EST Surgery Gastroenterology at [facility] [place] [address] David Dejesus MD [facility] [place] [address] EGD,WITH DILATION ESOPHAGUS WITH BALLOON,< 30 MM [...] the day after the procedure, use an zflv-zer-fvobpsg spray to numb your throat. Sucking on [...] occurs, please contact your Doctor. Please call [phone] before 8pm Mon-Fri with problems, questions or concerns. If you call after 8pm or on weekends, call the Hospital at [phone] and ask to speak to the Continuous Mining Machine Lode Miner medication coordinator and the combiner operator will contact that person for you. When should you call for help? Call [phone] anytime you think you may need emergency [...] more? Visit our health information library at [email or web address] You can also view health information on [employer], your personal patient account. Log in or sign uptoday. Enter J014 in the search box to learn more about Esophageal Dilation: What to Expect at Home. Current as of: December 18, 2018Content Version: 12.4 ?? 4010-6187 [employer]. Care instructions adapted under license by [facility]. If you have questions about a medical condition or this instruction, always ask your healthcare professional. [employer] disclaims any warranty or liability for your [...] meter kit. 1 each 0 12/14/2014 Insulin [place], Disposable, (BD INSULIN PEN NEEDLE UF MINI) [...] PM EDT Office Visit Cardiology at [address] [phone] Milagros Hernanedz MD [facility] [address] Scheduled Procedures Name Priority Associated Diagnoses Date/Ti me EGD, UPPER GI ENDOSCOPY (WRV U 2.09) Peptic stricture of esophagus documented as of this encounter Procedures Procedure Name Priority Date/Time Associated Diagnosis Comments POCT GLUCOSE Routine 04/30/2023 4:13 PM EST Up Gi Endoscopy, Ball Dil, 30Mm (35422) 04/30/2023 3:25 PM EST Peptic stricture of esophagus UPPER GI ENDOSCOPY Routine 04/30/2023 3: 14 PM EST POCT GLUCOSE Routine 04/30/2023 2:09 PM EST documented in this encounter Results * POCT Glucose (04/30/2023 4:13 PM EST) Glucose, POC 81 65 - 199 mg/dL [facility] Comment: Supplemental ranges: <140 mg/dL before meals <180 mg/dL all other times of the day Blood 04/30/2023 4:13 PM EST 04/30/2023 4:13 PM EST David Dejesus MD POINT OF CARE TEST ORDERABLES Performing Organization Address City/State/[facility] Co de Phone Number [facility] [place] [place] [address] * UPPER GI ENDOSCOPY (04/30/2023 3:14 PM EST) [facility] UPPER GI ENDOSCOPY [facility] Endoscopy Procedure Date: 04/30/2023 3:14 PM ? Patient Name: Jennifer Irving ? Date of : 1960 ? Age: 62 ? Order #: [id number] ? Instrument Name: [id number] ? Procedure: ? Upper GI endoscopy Indications: [...] PROVATION 04/30/2023 3:14 PM EST Ana Gillespie STORM DOOR MAKER GENERAL SURGICAL ORD ERABLES PROVATION * POCT Glucose (04/30/2023 2:09 PM EST) Glucose, POC 75 65 - 199 mg/dL [facility] Comment: Supplemental ranges: <140 mg/dL before meals <180 mg/dL all other times of the day Blood 04/30/2023 2:09 PM EST 04/30/2023 2:09 PM EST David Dejesus MD POINT OF CARE TEST ORDERABLES [facility] [place] [address] documented in this encounter Visit Diagnoses Diagnosis [...] RN) documented in this encounter Care Teams Baseball Inspector Relationship Specialty Start Date End Date Ana Gillespie APRN [address] [place] [address] PCP - General Family Medicine 02/03/19 documented as of this encounter
--- OUTSIDE RECORDS SUMMARY | 2024-02-05 12:45 | XMS_ITS | Encounter Summary ---
Author Organization [facility] [place] [address] Care Team Providers Care Bill Cutter Name Role Phone Ana Gillespie APRN Primary Care Provider [phone] Encounter Details Date Type Department Care Team [...] PM EDT Office Visit Cardiology at [address] [phone] Milagros Hernandez MD [facility] [place] [address] Scheduled Procedures Name Priority Associated Diagnoses Date/Ti me EGD, UPPER GI ENDOSCOPY (WRV U 2.09) Peptic stricture of esophagus documented as of this encounter Visit Diagnoses Not on filedocumented in this encounter Care Teams Bill Cutter Relationship Specialty Start Date End Date Ana Gillespie APRN [address] [place] [address] PCP - General Family Medicine 02/03/19 documented as of this encounter
--- OUTSIDE RECORDS SUMMARY | 2024-02-05 12:45 | XMS_ITS | Encounter Summary ---
Author Organization [facility] [place] [address] Care Team Providers Care Animal Breeder Name Role Phone Ana Gillespie APRN Primary Care Provider [phone] Encounter Details Date Type Department Care Team (Late st Contact Info) Description 03/16/2023 1:02 PM EST Anesthesia Event [place] [phone] Rio Aceves MD [facility] [place] [address] Beti Cisneros CRNA [facility] [place] [address] Anesthesia Record Procedure Summary Procedure Name Responsible [...] by Sergey Jordan RN PIV 03/16/23; 1221; xcyb-cxv-xzglze catheter system; 22 gauge; metacarpal vein (top [...] Procedure Summary Date: 03/16/23 Room / Location: [facility] ENDO 2 / [facility] ENDOSCOPY Anesthesia Start: 1302 Anesthesia Stop: 1343 Procedure: EGD,WITH DILATION ESOPHAGUS WITH BALLOON,< 30 MM (WRVU 2.67) (Trunk) Diagnosis: Peptic stricture of esophagus (stricture dilation) Surgeons: David Dejesus MD Responsible Provider: Rio Aceves MD Anesthesia Type: general ASA Status: 3 All Anesthesia Providers: Anesthesiologist: Rio Aceves MD GEOLOGIST: Beti Cisneros CRNA Vitals Value Taken Time BP 110/60 03/16/23 1420 Temp Pulse Resp 18 03/16/23 1420 SpO2 96 % 03/16/23 1423 Pain Level 0 03/16/23 1420 Vitals shown include unfiled device data. Patient Location: PACU/[facility] Level of Consciousness: Awake and Alert [...] IR G-Tube Check/Change 11/27/2022 Hang Cooper PA [facility] RAD ??? IR G-TUBE CHECK/CHANGE 03/10/2023 IR G-Tube Check/Change 03/10/2023 Geronimo Chambers, DO [facility] RAD ??? IR G-TUBE PLACEMENT 09/11/2022 IR G-Tube Placement 09/11/2022 Moustapha Hart MD [facility] RAD ??? IR SUTURE RELEASE 09/25/2022 IR Suture Release 09/25/2022 Yoselin Ghosh, ROSLYN [facility] RAD ??? PERCUTANEOUS GASTROSTOMY N/A 09/11/2022 PERCUTANEOUS GASTROSTOMY performed by Aiden Flores MD at [facility] CATY ??? PRO COLONOSCOPY, BIOPSY N/A 03/20/2016 COLONOSCOPY FLEXIBLE, WITH BX performed by David Dejesus MD at [facility] ENDOSCOPY ??? PRO COLONOSCOPY, DIAGNOSTIC N/A 03/01/2020 COLONOSCOPY, DIAGNOSTIC performed by David Dejesus MD at [facility] ENDOSCOPY ??? PRO ENDOSCOPIC US EXAM, ESOPH N/A 03/31/2022 UPPER EUS- ENDOSCOPIC ULTRASOUND performed by David Dejesus MD at [facility] ENDOSCOPY ??? PRO UP GI ENDOSCOPY, BALL DIL, 30MM N/A 12/24/2022 EGD,WITH DILATION ESOPHAGUS WITH BALLOON,< 30 MM (WRVU 2.67) performed by David Dejesus [facility] ENDOSCOPY ??? PRO UP GI ENDOSCOPY, BALL DIL, 30MM N/A 01/12/2023 EGD,WITH DILATION ESOPHAGUS WITH BALLOON,< 30 MM (WRVU 2.67) performed by David Dejesus [facility] ENDOSCOPY ??? PRO UP GI ENDOSCOPY, BALL DIL, 30MM N/A 02/26/2023 EGD,WITH DILATION ESOPHAGUS WITH BALLOON,< 30 MM (WRVU 2.67) performed by David Dejesus [facility] ENDOSCOPY ??? PRO UPPER GI ENDOSCOPY, BIOPSY N/A 04/03/2014 UPPER GASTROINTESTINAL ENDOSCOPY,WITH BIOPSY SINGLE OR MULTIPLE performed by David Dejesus [facility] ENDOSCOPY ??? PRO UPPER GI ENDOSCOPY, BIOPSY N/A 03/20/2016 EGD WITH BIOPSY performed by David Dejesus MD at [facility] ENDOSCOPY ??? PRO UPPER GI ENDOSCOPY, BIOPSY N/A 11/22/2018 EGD WITH BIOPSY (WRVU 2.49) performed by David Dejesus MD at [facility] ENDOSCOPY ??? PRO UPPER GI ENDOSCOPY, BIOPSY N/A 03/01/2020 UPPER GASTROINTESTINAL ENDOSCOPY,WITH BIOPSY SINGLE OR MULTIPLE (WRVU 2.49) performed by David Dejesus MD at [facility] ENDOSCOPY ??? PRO UPPER GI ENDOSCOPY, BIOPSY N/A 09/23/2021 EGD WITH BIOPSY (WRVU 2.49) performed by David Dejesus MD at [facility] ENDOSCOPY ??? PRO UPPER GI ENDOSCOPY, BIOPSY N/A 03/31/2022 EGD WITH BIOPSY (WRVU 2.49) performed by David Dejesus MD at [facility] ENDOSCOPY ??? PRO UPPER GI ENDOSCOPY, BIOPSY N/A 07/03/2022 EGD WITH BIOPSY (WRVU 2.49) performed by David Dejesus MD at [facility] ENDOSCOPY ??? PRO UPPER GI ENDOSCOPY, DIAGNOSTIC N/A 04/03/2014 EGD, UPPER GI ENDOSCOPY performed by David Dejesus MD at [facility] ENDOSCOPY ??? PRO UPPER GI ENDOSCOPY, DIAGNOSTIC N/A 03/01/2020 EGD, UPPER GI ENDOSCOPY performed by David Dejesus MD at [facility] ENDOSCOPY ??? PRO UPPER GI ENDOSCOPY, DIAGNOSTIC N/A 09/09/2022 EGD, UPPER GI ENDOSCOPY (WRVU 2.09) performed by Ayo Russ MD at [facility] MAIN OR Social History Tobacco Use [...] with patient and spouse. Plan discussed with GEOLOGIST and attending. Anesthesia Screening documented in this encounter Plan of Treatment Upcoming Encounters Date Type Department Care Team (Late st Contact Info) Description 03/10/2024 4:00 PM EDT Office Visit Cardiology at [address] [address] Milagros Hernandez MD [facility] [place] [address] Scheduled Procedures Name Priority Associated Diagnoses Date/Ti [...] mg documented in this encounter Care Teams Animal Breeder Relationship Specialty Start Date End Date Ana Gillespie APRN [address] [place] [address] PCP - General Family Medicine 02/03/19 documented as of this encounter
--- OUTSIDE RECORDS SUMMARY | 2024-02-05 12:45 | XMS_ITS | Encounter Summary ---
Author Organization [facility] Address [facility] [place] [address] Care Team Providers Care Partner Integration Planner Name Role Phone Ana Gillespie VAUGHN Primary Care Provider [phone] Encounter Details Date Type Department Care Team (Late st Contact Info) Description 05/08/2023 Notes [place] [phone] Nisha Chavez MD [facility] [place] [address] Social History Tobacco Use Types Packs/Day Years [...] tube was dislodged andcare was sought at [facility]. A barba catheter was placed into the [...] through the barba.He should be able to picker a compatible syringe at his closest [...] PM EDT Office Visit Cardiology at [address] [address] Milagros Hernandez MD [facility] [place] [address] Scheduled Procedures Name Priority Associated Diagnoses Date/Ti me EGD, UPPER GI ENDOSCOPY (WRV U 2.09) Peptic stricture of esophagus documented as of this encounter Visit Diagnoses Not on filedocumented in this encounter Care Teams Partner Integration Planner Relationship Specialty Start Date End Date Ana Gillespie APRN [address] [place] [address] PCP - General Family Medicine 02/03/19 documented as of this encounter
--- OUTSIDE RECORDS SUMMARY | 2024-02-05 12:45 | XMS_ITS | Encounter Summary ---
Author Organization [facility] [place] [address] Care Team Providers Care Spiral Machine Operator Name Role Phone Ana Gillespie VAUGHN Primary Care Provider [phone] Encounter Details Date Type Department Care Team (Late st Contact Info) Description 04/19/2023 [place] [phone] Meka Vera Social History Tobacco Use Types [...] 4:00 PM EDT Office Visit Cardiology at [address] [phone] Milagros Hernandez MD [facility] [place] [address] Scheduled Procedures Name Priority Associated Diagnoses Date/Ti me EGD, UPPER GI ENDOSCOPY (WRV U 2.09) Peptic stricture of esophagus documented as of this encounter Visit Diagnoses Not on filedocumented in this encounter Care Teams Spiral Machine Operator Relationship Specialty Start Date End Date Ana Gillespie APRN [address] [place] [address] PCP - General Family Medicine 02/03/19 documented as of this encounter
--- OUTSIDE RECORDS SUMMARY | 2024-02-05 12:45 | XMS_ITS | Encounter Summary ---
Author Organization [facility] Address [facility] [place] [address] Care Team Providers Care Corporate Strategy Analyst Name Role Phone Ana Gillespie APRN Primary Care Provider [phone] Encounter Details Date Type Department Care Team (Late st Contact Info) Description 03/09/2023 Notes [place] [phone] Masha Adkins MD [facility] [place] [address] Social History Tobacco Use Types Packs/Day Years [...] agreement with plan. Masha Teran) Lucille MARTE Copy Director PGY4 documented in this encounter Plan of Treatment Upcoming Encounters Date Type Department Care Team (Late st Contact Info) Description 03/10/2024 4:00 PM EDT Office Visit Cardiology at [address] [address] Milagros Hernandez MD [facility] [place] [address] Scheduled Orders Name Type Priority Associated Diagnoses [...] esophagus documented in this encounter Care Teams Corporate Strategy Analyst Relationship Specialty Start Date End Date Ana Gillespie APRN [address] [place] [address] PCP - General Family Medicine 02/03/19 documented as of this encounter
--- OUTSIDE RECORDS SUMMARY | 2024-02-05 12:45 | XMS_ITS | Encounter Summary ---
Author Organization [facility] Address [facility] [place] [address] Care Team Providers Care Grinding Wheel Dresser Name Role Phone Ana Gillespie VAUGHN Primary Care Provider [phone] Encounter Details Date Type Department Care Team (Latest Contact Info) Description 03/30/2023 2:12 PM EST - 03/30/2023 7:04 PM EST Hospital Encounter Gastroenterology at [facility] [place] [address] David Dejesus MD [facility] [place] [address] Discharge Disposition: Home Social History Tobacco Use [...] the day after the procedure, use an qbsr-kko-vhydaxu spray to numb your throat. Sucking on [...] occurs, please contact your Doctor. Please call [phone] before 8pm Mon-Fri with problems, questions or concerns. If you call after 8pm or on weekends, call the Hospital at [phone] and ask to speak to the Car Dealer union steward and the vulcanizer operator will contact that person for you. When should you call for help? Call [phone] anytime you think you may need emergency [...] any problems. Where can you learn more? [facility] View your After Visit Summary and more online at [email or web address] If you would like to provide feedback about your hospital experience, please call the Office of Patient and Family Relations at . If you have received this After Visit Summary in error, please immediately return it in person to the department, or notify the [facility] Privacy Office by calling toll free at between the hours of 8AM and 5PM to arrange for our retrieval of the documents at no cost to you. Content Version: 12.2 ?? 3283-7751 [employer]AN. Care instructions adapted under license by [facility]. If you have questions about a medical condition or this instruction, always ask your healthcare professional. [employer] disclaims any warranty or liability for your [...] the day after the procedure, use an dkmp-oyb-efjymnu spray to numb your throat. Sucking on [...] occurs, please contact your Doctor. Please call [phone] before 8pm Mon-Fri with problems, questions or concerns. If you call after 8pm or on weekends, call the Hospital at [phone] and ask to speak to the Car Dealer union steward and the vulcanizer operator will contact that person for you. [...] any problems. Where can you learn more? [facility] View your After Visit Summary and more online at [email or web address] If you would like to provide feedback about your hospital experience, please call the Office of Patient and Family Relations at . If you have received this After Visit Summary in error, please immediately return it in person to the department, or notify the [facility] Privacy Office by calling toll free at between the hours of 8AM and 5PM to arrange for our retrieval of the documents at no cost to you. Content Version: 12.2 ?? [id number] EDAN. Care instructions adapted under license by [facility]. If you have questions about a medical condition or this instruction, always ask your healthcare professional. [employer] disclaims any warranty or liability for your [...] meter kit. 1 each 0 12/14/2014 Insulin Poth, Disposable, (BD INSULIN PEN NEEDLE UF MINI) [...] 4:00 PM EDT Office Visit Cardiology at [address] [address] Milagros Hernandez MD [facility] [place] [address] Scheduled Procedures Name Priority Associated Diagnoses Date/Ti me EGD, UPPER GI ENDOSCOPY (WRV U 2.09) Peptic stricture of esophagus documented as of this encounter Procedures Procedure Name Priority Date/Time Associated Diagnosis Comments Up Gi Endoscopy, Ball Dil, 30Mm (32795) 03/30/2023 6:02 PM EST Peptic stricture of esophagus UPPER GI ENDOSCOPY Routine 03/30/2023 5: 58 PM EST documented in this encounter Results * UPPER GI ENDOSCOPY (03/30/2023 5:58 PM EST) UPPER GI ENDOSCOPY [facility] Endoscopy Procedure Date: 03/30/2023 5:58 PM ? Patient Name: Jennifer Irving ? Date of : 1960 ? Age: 62 ? Order #: [id number] ? Instrument Name: [id number] ? Procedure: ? Upper GI endoscopy Indications: ? Stenosis of the esophagus Providers: ? David Dejesus MD, Jennifer E. ? Theodora Garibay, ? Training Representative Referring MD: ?Ana eKith: ? Propofol per Anesthesia Complications: ? No [...] PROVATION 03/30/2023 5:58 PM EST Ana Gillespie APRN GENERAL SURGICAL [...] CRNA) documented in this encounter Care Teams Grinding Wheel Dresser Relationship Specialty Start Date End Date Ana Gillespie APRN [address] [place] [id number] PCP - General Family Medicine 02/03/19 documented as of this encounter
--- OUTSIDE RECORDS SUMMARY | 2024-02-05 12:45 | XMS_ITS | Encounter Summary ---
Author Organization [facility] [place] [address] Care Team Providers Care Sheeter Operator Name Role Phone Ana Gillespie APRN Primary Care Provider [phone] Encounter Details Date Type Department Care Team [...] PM EDT Office Visit Cardiology at [address] [address] Milagros Hernandez MD [facility] [place] [address] Scheduled Procedures Name Priority Associated Diagnoses Date/Ti me EGD, UPPER GI ENDOSCOPY (WRV U 2.09) Peptic stricture of esophagus documented as of this encounter Visit Diagnoses Not on filedocumented in this encounter Care Teams Sheeter Operator Relationship Specialty Start Date End Date Ana Gillespie APRN [address] [place] [address] PCP - General Family Medicine 02/03/19 documented as of this encounter
--- OUTSIDE RECORDS SUMMARY | 2024-02-05 12:45 | XMS_ITS | Encounter Summary ---
[place] [address] Care Team Providers Care Instrument Assembly Supervisor Name Role Phone Ana Gillespie VAUGHN Primary Care Provider [phone] Encounter Details Date Type Department Care Team (Late st Contact Info) Description 05/18/2023 Telephone [place] [phone] Chiquita James, RN Social History Tobacco Use [...] 4:00 PM EDT Office Visit Cardiology at [address] [phone] Milagros Hernandez MD [facility] [place] [address] Scheduled Procedures Name Priority Associated Diagnoses Date/Ti me EGD, UPPER GI ENDOSCOPY (WRV U 2.09) Peptic stricture of esophagus documented as of this encounter Visit Diagnoses Not on filedocumented in this encounter Care Teams Instrument Assembly Supervisor Relationship Specialty Start Date End Date Ana Gillespie APRN [address] [place] [address] PCP - General Family Medicine 02/03/19 documented as of this encounter
--- OUTSIDE RECORDS SUMMARY | 2024-02-05 12:45 | XMS_ITS | Encounter Summary ---
Author Organization [facility] [place] [address] Care Team Providers Care Auto Transmission Specialist Name Role Phone Ana Gillespie APRN Primary Care Provider [phone] Encounter Details Date Type Department Care Team (Late st Contact Info) Description 05/14/2023 Telephone [place] [phone] Chiquita James, RN Social History Tobacco Use [...] 4:00 PM EDT Office Visit Cardiology at [address] [address] Milagros Hernandez MD [facility] [place] [address] Scheduled Procedures Name Priority Associated Diagnoses Date/Ti me EGD, UPPER GI ENDOSCOPY (WRV U 2.09) Peptic stricture of esophagus documented as of this encounter Visit Diagnoses Not on filedocumented in this encounter Care Teams Auto Transmission Specialist Relationship Specialty Start Date End Date Ana Gillespie APRN [address] [place] [address] PCP - General Family Medicine 02/03/19 documented as of this encounter
--- OUTSIDE RECORDS SUMMARY | 2024-02-05 12:45 | XMS_ITS | Encounter Summary ---
Author Organization [facility] [place] [address] Care Team Providers Care Mail Forwarding System Markup Clerk Name Role Phone Ana Gillespie CHLORINATOR OPERATOR Primary Care Provider [phone] Encounter Details Date Type Department Care Team (Late st Contact Info) Description 05/05/2023 Telephone Gastroenterology at [facility] [place] [address] Parris Maravilla Social History Tobacco Use Types [...] - 05/05/2023 10:15 AM EST Jennifer Irving [id number] Diagnosis/Indication: repeat petic stricture dilation - please [...] 3 procedures You must have a responsible constitution party who will drive you to your procedure, stay on campus for the entire duration of your procedure, and drive you home from your procedure. Who will likely be your after school driver for the procedure? *Please Verify the [...] 4:00 PM EDT Office Visit Cardiology at [address] [address] Milagros Hernandez MD [facility] [place] [address] Scheduled Procedures Name Priority Associated Diagnoses Date/Ti me EGD, UPPER GI ENDOSCOPY (WRV U 2.09) Peptic stricture of esophagus documented as of this encounter Visit Diagnoses Not on filedocumented in this encounter Care Teams Mail Forwarding System Markup Clerk Relationship Specialty Start Date End Date Ana Gillespie APRN [address] [place] [address] PCP - General Family Medicine 02/03/19 documented as of this encounter
--- OUTSIDE RECORDS SUMMARY | 2024-02-05 12:45 | XMS_ITS | Encounter Summary ---
[place] [address] Care Team Providers Care Horse Wrangler Name Role Phone Ana Gillespie VAUGHN Primary Care Provider [phone] Reason for Referral * Diagnostic Test (Routine) - Closed Specialty Diagnoses / Procedures Referred By Contjovani t Referred To Contact Radiology Diagnoses Neuroleptic-induced parkinsonism Procedures IR G-Tube Check/Change OrlandFannie merritt PA [facility] [place] [address] [facility] [place] [address] Referral ID Status Reason Start Date Expiration Date V isits Requested Visits Authorized [id number] Closed Specialty Service Requested 04/05/2023 10/03/2024 1 1 Reason for Visit * Diagnostic Test (Routine) - Closed Specialty Diagnoses / Procedures Referred By Contjovani t Referred To Contact Radiology Diagnoses Neuroleptic-induced parkinsonism Procedures IR G-Tube Check/Change OrlandFannie merritt PA [facility] [place] [address] [facility] [place] [address] Referral ID Status Reason Start Date Expiration Date V isits Requested Visits Authorized [id number] Closed Specialty Service Requested 04/05/2023 10/03/2024 1 1 Encounter Details Date Type Department Care Team (Latest Contact Info) Description 04/06/2023 1:11 PM EST - 04/06/2023 11:59 PM EST Hospital Encounter Radiology at [facility] [place] [address] Moustapha Hart MD [facility] [address] [place] [address] Neuroleptic-induced parkinsonism Discharge Disposition: Home Social History [...] or its attachments. INTERVENTIONAL RADIOLOGY PHONE NUMBERS [phone] If you have a NON Low profile feeding tube, call with any questions or concerns. During regular office hours call: [phone]. If it is after regular office hours, weekends or holidays, please call [phone] and ask to speak to the Lodging House Keeper prn occupational therapist for Interventional Radiology. If you have a low profile ???ESTRELLITA-FAM?? feeding tube, please call Dejah Stauffer RN for any issues: [phone]. Revised 02/23/19 documented in this encounter Medications [...] meter kit. 1 each 0 12/14/2014 Insulin Oscar, Disposable, (BD INSULIN PEN NEEDLE UF MINI) [...] of : 1960 AGE: 62 y.o. Address: [address] [address] (home) Mobile: Telephone Information: Referring Provider: Fannie Conde REASON FOR VISIT: Order Questions Answers Where will study be performed? [facility] Radiology [120] Is the patient on anticoagulant / antiplatelet therapy ? No Reason for exam and clinical history: 62F with G-tube (last exchanged 03/10), 16- Fr coc-vgn-mmpozse (ESTRELLITA). G-tube locked up overnight 04/04 - [facility] pulled the g tube and the balloon [...] Questions Answers Where will study be performed? [facility] Radiology [120] Is the patient on anticoagulant / antiplatelet therapy ? No Reason for exam and clinical history: 62F with G-tube (last exchanged 03/10), 16- Fr pei-gbr-edoiaep (ESTRELLITA). G-tube locked up overnight 04/04 - [facility] pulled the g tube and the balloon exploded in her. They put a barba cath in History of Present Illness: Per chart review, Jennifer Irving is a 62 y.o. female presenting to Interventional Radiology to undergo G-tube check/exchange in the setting of dislodged catheter. Per report, patient presented to [facility] and they pulled the catheter and the [...] glucose meter kit. 1 each 0 Insulin Oscar, Disposable, (BD INSULIN PEN NEEDLE UF MINI) 31 x 3/16 Needle 1 Device by [facility].(Non-Drug; Combo Route) route 3 times daily as [...] IR G-Tube Check/Change 11/27/2022 Hang Cooper PA [facility] INTERVENTIONL RAD IR G-TUBE CHECK/CHANGE 03/10/2023 IR G-Tube Check/Change 03/10/2023 Geronimo Chambers DO [facility] INTERVENTIONL RAD IR G-TUBE PLACEMENT 09/11/2022 IR G-Tube Placement 09/11/2022 Moustapha Hart MD [facility] INTERVENTIONL RAD IR SUTURE RELEASE 09/25/2022 IR Suture Release 09/25/2022 Yoselin Ghosh PA [facility] INTERVENTIONL RAD PERCUTANEOUS GASTROSTOMY N/A 09/11/2022 PERCUTANEOUS GASTROSTOMY performed by Aiden Flores MD at [facility] CATY PRO COLONOSCOPY, BIOPSY N/A 03/20/2016 COLONOSCOPY FLEXIBLE, WITH BX performed by David Dejesus MD at [facility] ENDOSCOPY PRO COLONOSCOPY, DIAGNOSTIC N/A 03/01/2020 COLONOSCOPY, DIAGNOSTIC performed by David Dejesus MD at [facility] ENDOSCOPY PRO ENDOSCOPIC US EXAM, ESOPH N/A 03/31/2022 UPPER EUS- ENDOSCOPIC ULTRASOUND performed by David Dejesus MD at [facility] ENDOSCOPY PRO UP GI ENDOSCOPY, BALL DIL, 30MM N/A 12/24/2022 EGD,WITH DILATION ESOPHAGUS WITH BALLOON,< 30 MM (WRVU 2.67) performed by David Dejesus MDat [facility] ENDOSCOPY PRO UP GI ENDOSCOPY, BALL DIL, 30MM N/A 01/12/2023 EGD,WITH DILATION ESOPHAGUS WITH BALLOON,< 30 MM (WRVU 2.67) performed by David Dejesus MDat [facility] ENDOSCOPY PRO UP GI ENDOSCOPY, BALL DIL, 30MM N/A 02/26/2023 EGD,WITH DILATION ESOPHAGUS WITH BALLOON,< 30 MM (WRVU 2.67) performed by David Dejesus MDat [facility] ENDOSCOPY PRO UP GI ENDOSCOPY, BALL DIL, 30MM N/A 03/16/2023 EGD,WITH DILATION ESOPHAGUS WITH BALLOON,< 30 MM (WRVU 2.67) performed by David Dejesus [facility] ENDOSCOPY PRO UP GI ENDOSCOPY, BALL DIL, 30MM N/A 03/30/2023 EGD,WITH DILATION ESOPHAGUS WITH BALLOON,< 30 MM (WRVU 2.67) performed by David Dejesus [facility] ENDOSCOPY PRO UPPER GI ENDOSCOPY, BIOPSY N/A 04/03/2014 UPPER GASTROINTESTINAL ENDOSCOPY,WITH BIOPSY SINGLE OR MULTIPLE performed by David Dejesus [facility] ENDOSCOPY PRO UPPER GI ENDOSCOPY, BIOPSY N/A 03/20/2016 EGD WITH BIOPSY performed by David Dejesus MD at [facility] ENDOSCOPY PRO UPPER GI ENDOSCOPY, BIOPSY N/A 11/22/2018 EGD WITH BIOPSY (WRVU 2.49) performed by David Dejesus MD at [facility] ENDOSCOPY PRO UPPER GI ENDOSCOPY, BIOPSY N/A 03/01/2020 UPPER GASTROINTESTINAL ENDOSCOPY,WITH BIOPSY SINGLE OR MULTIPLE (WRVU 2.49) performed by David Dejesus MD at [facility] ENDOSCOPY PRO UPPER GI ENDOSCOPY, BIOPSY N/A 09/23/2021 EGD WITH BIOPSY (WRVU 2.49) performed by David Dejesus MD at [facility] ENDOSCOPY PRO UPPER GI ENDOSCOPY, BIOPSY N/A 03/31/2022 EGD WITH BIOPSY (WRVU 2.49) performed by David Dejesus MD at [facility] ENDOSCOPY PRO UPPER GI ENDOSCOPY, BIOPSY N/A 07/03/2022 EGD WITH BIOPSY (WRVU 2.49) performed by David Dejesus MD at [facility] ENDOSCOPY PRO UPPER GI ENDOSCOPY, DIAGNOSTIC N/A 04/03/2014 EGD, UPPER GI ENDOSCOPY performed by David Dejesus MD at [facility] ENDOSCOPY PRO UPPER GI ENDOSCOPY, DIAGNOSTIC N/A 03/01/2020 EGD, UPPER GI ENDOSCOPY performed by David Dejesus MD at [facility] ENDOSCOPY PRO UPPER GI ENDOSCOPY, DIAGNOSTIC N/A 09/09/2022 EGD, UPPER GI ENDOSCOPY (WRVU 2.09) performed by Aoy Russ MD at [facility] MAIN OR Social History and Habits: [...] PM EDT Office Visit Cardiology at [address] [address] Milagros Hernandez MD [facility] [place] [address] Scheduled Procedures Name Priority Associated Diagnoses Date/Ti [...] procedure was performed under fluoroscopic guidance. ??A senior data scientist fluoroscopic image was obtained. ??Contrast was injected through the barba catheter and another fluoroscopic image was obtained. ??Through the catheter, an 0.035 stiff angled glide wire was advanced. ??The catheter was removed. ??Over the wire, a new 16-Fr adm-fvu-wqztrzo (ESTRELLITA) gastrostomy catheter was advanced. ??The retention balloon was inflated with 5 cc of sterile water. ??The gastrostomy was injected with contrast and repeat fluoroscopic image was obtained. ??A sterile dressing was applied. ?? Medications: 2% Lidocaine Jelly Topically Contrast: 10 cc Omnipaque 350, intra-enteric. Fluoroscopic Time: 0.2 minutes. Estimated Blood Loss: < 5 cc. Complications: ??No immediate. Findings: Placement of new 16-Fr azh-hri-emjvqbe (ESTRELLITA) catheter positioned within the stomach. ?? [...] mLs documented in this encounter Care Teams Horse Wrangler Relationship Specialty Start Date End Date Ana Gillespie APRN [address] [place] [address] PCP - General Family Medicine 02/03/19 documented as of this encounter
--- OUTSIDE RECORDS SUMMARY | 2024-02-05 12:45 | XMS_ITS | Encounter Summary ---
[place] [address] Care Team Providers Care Hand Trimmer Name Role Phone Ana Gillespie VAUGHN Primary Care Provider [phone] Reason for Referral * Diagnostic Test (Routine) - Closed Specialty Diagnoses / Procedures Referred By Esperanza rodríguez Referred To Contact Radiology Diagnoses Problem with gastrostomy tube Procedures IR G-Tube Check/Change Nisha Chavez MD [facility] [address] INTERVENTIONAL [place] [address] [place] [address] Referral ID Status Reason Start Date Expiration Date V isits Requested Visits Authorized [id number] Closed Specialty Service Requested 05/09/2023 11/06/2024 1 1 Reason for Visit * Diagnostic Test (Routine) - Closed Specialty Diagnoses / Procedures Referred By Esperanza rodríguez Referred To Contact Radiology Diagnoses Problem with gastrostomy tube Procedures IR G-Tube Check/Change Nisha Chavez MD [facility] INTERVENTIONAL [place] [address] [place] [address] Referral ID Status Reason Start Date Expiration Date V isits Requested Visits Authorized [id number] Closed Specialty Service Requested 05/09/2023 11/06/2024 1 1 Encounter Details Date Type Department Care Team (Latest Contact Info) Description 05/09/2023 11:00 AM EST - 05/09/2023 11:59 PM EST Hospital Encounter Radiology at [facility] [place] [phone] Azeem Alarcon MD [facility] [address] DIAGNOSTIC [place] [address] Problem with gastrostomy tube Discharge Disposition: Home [...] meter kit. 1 each 0 12/14/2014 Insulin Stuart, Disposable, (BD INSULIN PEN NEEDLE UF MINI) [...] 4:00 PM EDT Office Visit Cardiology at [address] [address] Milagros Hernandez MD [facility] [place] [address] Scheduled Procedures Name Priority Associated Diagnoses Date/Ti [...] mLs documented in this encounter Care Teams Hand Trimmer Relationship Specialty Start Date End Date Ana Gillespie APRN [address] [place] [address] PCP - General Family Medicine 02/03/19 documented as of this encounter
--- OUTSIDE RECORDS SUMMARY | 2024-02-05 12:45 | XMS_ITS | Encounter Summary ---
Author Organization [facility] [place] [address] Care Team Providers Care Hi Low Truck Driver Name Role Phone Ana Gillespie APRN Primary Care Provider [phone] Encounter Details Date Type Department Care Team (Late Contact Info) Description 04/30/2023 Orders [place] [phone] David Dejesus MD [facility] [place] [address] Peptic stricture of esophagus Social History Tobacco [...] PM EDT Office Visit Cardiology at [address] [phone] Milagros Hernandez MD [facility] [place] [address] Scheduled Orders Name Type Priority Associated Diagnoses [...] esophagus documented in this encounter Care Teams Hi Low Truck Driver Relationship Specialty Start Date End Date Ana Gillespie APRN [address] [place] [address] PCP - General Family Medicine 02/03/19 documented as of this encounter
--- OUTSIDE RECORDS SUMMARY | 2024-02-05 12:45 | XMS_ITS | Encounter Summary ---
Author Organization [facility] Address [facility] [place] [address] Care Team Providers Care Job Interviewer Name Role Phone Ana Gillespie VAUGHN Primary Care Provider [phone] Reason for Referral * Diagnostic Test (Routine) - Closed Specialty Diagnoses / Procedures Referred By Esperanza rodríguez Referred To Contact Radiology Diagnoses Problem with gastrostomy tube Procedures IR G-Tube Check/Change Jaime Chavez MD [facility] [place] [address] [place] [address] Referral ID Status Reason Start Date Expiration Date V isits Requested Visits Authorized [id number] Closed Specialty Service Requested 05/09/2023 11/06/2024 1 1 Encounter Details Date Type Department Care Team (Late st Contact Info) Description 05/09/2023 Orders [place] [address] Jaime Chavez MD [facility] [place] [address] Encounter for screening mammogram for breast cancer; [...] out for which they sought treatment at [facility]. A barba was placed into the tract. [...] IR G-Tube Check/Change 11/27/2022 Hang Cooper PA [facility] INTERVENTIONL RAD IR G-TUBE CHECK/CHANGE 03/10/2023 IR G-Tube Check/Change 03/10/2023 Geronimo Chambers DO [facility] INTERVENTIONL RAD IR G-TUBE CHECK/CHANGE 04/06/2023 IR G-Tube Check/Change 04/06/2023 Gavin Carrillo MD [facility] INTERVENTIONL RAD IR G-TUBE PLACEMENT 09/11/2022 IR G-Tube Placement 09/11/2022 Moustapha Hart MD [facility] INTERVENTIONL RAD IR SUTURE RELEASE 09/25/2022 IR Suture Release 09/25/2022 Yoselin Ghosh PA [facility] INTERVENTIONL RAD PERCUTANEOUS GASTROSTOMY N/A 09/11/2022 PERCUTANEOUS GASTROSTOMY performed by Aiden Flores MD at [facility] CATY PRO COLONOSCOPY, BIOPSY N/A 03/20/2016 COLONOSCOPY FLEXIBLE, WITH BX performed by David Dejesus MD at [facility] ENDOSCOPY PRO COLONOSCOPY, DIAGNOSTIC N/A 03/01/2020 COLONOSCOPY, DIAGNOSTIC performed by David Dejesus MD at [facility] ENDOSCOPY PRO ENDOSCOPIC US EXAM, ESOPH N/A 03/31/2022 UPPER EUS- ENDOSCOPIC ULTRASOUND performed by David Dejesus MD at [facility] ENDOSCOPY PRO UP GI ENDOSCOPY, BALL DIL, 30MM N/A 12/24/2022 EGD,WITH DILATION ESOPHAGUS WITH BALLOON,< 30 MM (WRVU 2.67) performed by David Dejesus [facility] ENDOSCOPY PRO UP GI ENDOSCOPY, BALL DIL, 30MM N/A 01/12/2023 EGD,WITH DILATION ESOPHAGUS WITH BALLOON,< 30 MM (WRVU 2.67) performed by David Dejesus [facility] ENDOSCOPY PRO UP GI ENDOSCOPY, BALL DIL, 30MM N/A 02/26/2023 EGD,WITH DILATION ESOPHAGUS WITH BALLOON,< 30 MM (WRVU 2.67) performed by David Dejesus [facility] ENDOSCOPY PRO UP GI ENDOSCOPY, BALL DIL, 30MM N/A 03/16/2023 EGD,WITH DILATION ESOPHAGUS WITH BALLOON,< 30 MM (WRVU 2.67) performed by David Dejesus [facility] ENDOSCOPY PRO UP GI ENDOSCOPY, BALL DIL, 30MM N/A 03/30/2023 EGD,WITH DILATION ESOPHAGUS WITH BALLOON,< 30 MM (WRVU 2.67) performed by David Dejesus [facility] ENDOSCOPY PRO UP GI ENDOSCOPY, BALL DIL, 30MM N/A 04/30/2023 EGD,WITH DILATION ESOPHAGUS WITH BALLOON,< 30 MM (WRVU 2.67) performed by David Dejesus [facility] ENDOSCOPY PRO UPPER GI ENDOSCOPY, BIOPSY N/A 04/03/2014 UPPER GASTROINTESTINAL ENDOSCOPY,WITH BIOPSY SINGLE OR MULTIPLE performed by David Dejesus [facility] ENDOSCOPY PRO UPPER GI ENDOSCOPY, BIOPSY N/A 03/20/2016 EGD WITH BIOPSY performed by David Dejesus MD at [facility] ENDOSCOPY PRO UPPER GI ENDOSCOPY, BIOPSY N/A 11/22/2018 EGD WITH BIOPSY (WRVU 2.49) performed by David Dejesus MD at [facility] ENDOSCOPY PRO UPPER GI ENDOSCOPY, BIOPSY N/A 03/01/2020 UPPER GASTROINTESTINAL ENDOSCOPY,WITH BIOPSY SINGLE OR MULTIPLE (WRVU 2.49) performed by David Dejesus MD at [facility] ENDOSCOPY PRO UPPER GI ENDOSCOPY, BIOPSY N/A 09/23/2021 EGD WITH BIOPSY (WRVU 2.49) performed by David Dejesus MD at [facility] ENDOSCOPY PRO UPPER GI ENDOSCOPY, BIOPSY N/A 03/31/2022 EGD WITH BIOPSY (WRVU 2.49) performed by David Dejesus MD at [facility] ENDOSCOPY PRO UPPER GI ENDOSCOPY, BIOPSY N/A 07/03/2022 EGD WITH BIOPSY (WRVU 2.49) performed by David Dejesus MD at [facility] ENDOSCOPY PRO UPPER GI ENDOSCOPY, DIAGNOSTIC N/A 04/03/2014 EGD, UPPER GI ENDOSCOPY performed by David Dejesus MD at [facility] ENDOSCOPY PRO UPPER GI ENDOSCOPY, DIAGNOSTIC N/A 03/01/2020 EGD, UPPER GI ENDOSCOPY performed by David Dejesus MD at [facility] ENDOSCOPY PRO UPPER GI ENDOSCOPY, DIAGNOSTIC N/A 09/09/2022 EGD, UPPER GI ENDOSCOPY (WRVU 2.09) performed by Ayo Russ MD at [facility] MAIN OR Medications: Current Outpatient Medications on [...] daily. 180 tablet 3 Blood Sugar Diagnostic (Brandicted ULTRA TEST) Strip 1 each by Other [...] glucose meter kit. 1 each 0 Insulin Avalon, Disposable, (BD INSULIN PEN NEEDLE UF MINI) [...] 4:00 PM EDT Office Visit Cardiology at [address] [address] Milagros Hernandez MD [facility] [address] Scheduled Procedures Name Priority Associated Diagnoses Date/Ti [...] tube documented in this encounter Care Teams Job Interviewer Relationship Specialty Start Date End Date Ana Gillespie, VAUGHN [address] [place] [address] PCP - General Family Medicine 02/03/19 documented as of this encounter
--- OUTSIDE RECORDS SUMMARY | 2024-02-05 12:45 | XMS_ITS | Encounter Summary ---
Author Organization [facility] [place] [address] Care Team Providers Care Antique Furniture Restorer Name Role Phone Ana Gillespie VAUGHN Primary Care Provider [phone] Reason for Referral * Diagnostic Test (Routine) - Closed Specialty Diagnoses / Procedures Referred By Esperanza rodríguez Referred To Contact Radiology Diagnoses Neuroleptic-induced parkinsonism Procedures IR G-Tube Check/Change Fannie Conde PA [facility] [place] [address] [place] [address] Referral ID Status Reason Start Date Expiration Date V isits Requested Visits Authorized [id number] Closed Specialty Service Requested 04/05/2023 10/03/2024 1 1 Encounter Details Date Type Department Care Team (Late st Contact Info) Description 04/05/2023 [place] [address] Fannie Conde PA [facility] [place] [address] Social History Tobacco Use Types Packs/Day Years [...] 4:00 PM EDT Office Visit Cardiology at [address] [address] Milagros Hernandez MD [facility] [place] [address] Scheduled Procedures Name Priority Associated Diagnoses Date/Ti [...] procedure was performed under fluoroscopic guidance. ??A hospice home care coordinator fluoroscopic image was obtained. ??Contrast was injected through the barba catheter and another fluoroscopic image was obtained. ??Through the catheter, an 0.035 stiff angled glide wire was advanced. ??The catheter was removed. ??Over the wire, a new 16-Fr qfz-gpr-wznrjdv (ESTRELLITA) gastrostomy catheter was advanced. ??The retention balloon was inflated with 5 cc of sterile water. ??The gastrostomy was injected with contrast and repeat fluoroscopic image was obtained. ??A sterile dressing was applied. ?? Medications: 2% Lidocaine Jelly Topically Contrast: 10 cc Omnipaque 350, intra-enteric. Fluoroscopic Time: 0.2 minutes. Estimated Blood Loss: < 5 cc. Complications: ??No immediate. Findings: Placement of new 16-Fr qht-hic-bsadgia (ESTRELLITA) catheter positioned within the stomach. ?? [...] Parkinsonism documented in this encounter Care Teams Antique Furniture Restorer Relationship Specialty Start Date End Date Ana Gillespie APRN [address] [place] [address] PCP - General Family Medicine 02/03/19 documented as of this encounter
--- OUTSIDE RECORDS SUMMARY | 2024-02-05 12:45 | XMS_ITS | Encounter Summary ---
Author Organization [facility] Address [facility] [place] [address] Care Team Providers Care Elevator Repair Mechanic Name Role Phone Ana Gillespie APRN Primary Care Provider [phone] Reason for Visit * Reason Onset Date Comments Medication Refill 03/03/2023 Metoprolol Suc cinate, instruction change. Encounter Details Date Type Department Care Team (Late st Contact Info) Description 03/03/2023 Refill Cardiology at [address] [phone] Milagros Hernandez MD [facility] [place] [address] Medication Refill (Metoprolol Succinate, instruction change.) Social [...] PM EDT Office Visit Cardiology at [address] [address] Milagros Hernandez MD [facility] [place] [address] Scheduled Procedures Name Priority Associated Diagnoses Date/Ti me EGD, UPPER GI ENDOSCOPY (WRV U 2.09) Peptic stricture of esophagus documented as of this encounter Visit Diagnoses Diagnosis HFrEF (heart failure with reduced ejection fraction) documented in this encounter Care Teams Elevator Repair Mechanic Relationship Specialty Start Date End Date Ana Gillespie APRN [address] [place] [address] PCP - General Family Medicine 02/03/19 documented as of this encounter
--- OUTSIDE RECORDS SUMMARY | 2024-02-05 12:45 | XMS_ITS | Encounter Summary ---
Author Organization [facility] Address [facility] [place] [address] Care Team Providers Care Differential Repairer Name Role Phone Ana Gillespie APRN Primary Care Provider [phone] Reason for Referral * Consultation (Routine) - Authorized Specialty Diagnoses / Procedures Referred By Esperanza rodríguez Referred To Contact Pulmonology Diagnoses Hypoxemia Ana Gillespie APRN [address] [place] [address] Noe Cuenca MD [facility] [address] Referral ID Status Reason Start Date Expiration Date Visits Requested Visits Authorized [id number] Authorized Consult, Test & Treat PCP Updated and/or Approved 05/27/2023 05/26/2024 6 6 Encounter Details Date Type Department Care Team (Late Contact Info) Description 05/27/2023 Transcribe Orders eD Incoming Referrals [phone] Ana Gillespie APRN [address] [place], [place] [address] Hypoxemia Social History Tobacco Use Types Packs/Day [...] PM EDT Office Visit Cardiology at [address] [address] Milagros Hernandez MD [facility] [place] [address] Scheduled Procedures Name Priority Associated Diagnoses Date/Ti me EGD, UPPER GI ENDOSCOPY (WRV U 2.09) Peptic stricture of esophagus Scheduled Referrals Name Type Priority Associated Diagnoses Order Schedule Referral to Pulmonology Outpatient Referral Routine Hypoxemia Ordered: 05/27/2023 documented as of this encounter Visit Diagnoses Diagnosis Hypoxemia documented in this encounter Care Teams Differential Repairer Relationship Specialty Start Date End Date Ana Gillespie APRN [address] [place] [address] PCP - General Family Medicine 02/03/19 documented as of this encounter
--- OUTSIDE RECORDS SUMMARY | 2024-02-05 12:45 | XMS_ITS | Encounter Summary ---
Author Organization [facility] [place] [address] Care Team Providers Care Pharmacy Technician Program Director Name Role Phone Ana Gillespie APRN Primary Care Provider [phone] Encounter Details Date Type Department Care Team (Late Contact Info) Description 03/30/2023 Orders [place] [phone] David Dejesus MD [facility] [place] [address] Peptic stricture of esophagus Social History Tobacco [...] PM EDT Office Visit Cardiology at [address] [phone] Milagros Hernandez MD [facility] [place] [address] Scheduled Orders Name Type Priority Associated Diagnoses [...] esophagus documented in this encounter Care Teams Pharmacy Technician Program Director Relationship Specialty Start Date End Date Ana Gillespie APRN [address] [place] [address] PCP - General Family Medicine 02/03/19 documented as of this encounter
--- OUTSIDE RECORDS SUMMARY | 2024-02-05 12:45 | XMS_ITS | Encounter Summary ---
Author Organization [facility] [place] [address] Care Team Providers Care Marketing Technology Coordinator Name Role Phone Ana Gillespie APRN Primary Care Provider [phone] Encounter Details Date Type Department Care Team [...] 4:00 PM EDT Office Visit Cardiology at [address] [address] Milagros Hernandez MD [facility] [address] Scheduled Procedures Name Priority Associated Diagnoses Date/Ti me EGD, UPPER GI ENDOSCOPY (WRV U 2.09) Peptic stricture of esophagus documented as of this encounter Visit Diagnoses Not on filedocumented in this encounter Care Teams Marketing Technology Coordinator Relationship Specialty Start Date End Date Ana Gillespie APRN [address] [place] [address] PCP - General Family Medicine 02/03/19 documented as of this encounter
--- OUTSIDE RECORDS SUMMARY | 2024-02-05 12:45 | XMS_ITS | Encounter Summary ---
Author Organization [facility] Address [facility] [place] [address] Care Team Providers Care Sales And Production Manager Name Role Phone Ana Gillespie VAUGHN Primary Care Provider [phone] Encounter Details Date Type Department Care Team (Latest Contact Info) Description 04/30/2023 1:29 PM EST - 04/30/2023 4:43 PM EST Hospital Encounter Gastroenterology at [facility] [place] [address] David Dejesus MD [facility] [place] [address] Discharge Disposition: Home Social History Tobacco Use [...] the day after the procedure, use an asvv-pdf-aargots spray to numb your throat. Sucking on [...] occurs, please contact your Doctor. Please call [phone] before 8pm Mon-Fri with problems, questions or concerns. If you call after 8pm or on weekends, call the Hospital at [phone] and ask to speak to the Middle School Volleyball Coach irrigation service technician and the nuclear station operator will contact that person for you. When should you call for help? Call 411 anytime you think you may need emergency [...] more? Visit our health information library at [email or web address] [email or web address] Modernao You can also view health information on AnaBios, your personal patient account. Log in or sign uptoday. Enter J014 in the search box to learn more about Esophageal Dilation: What to Expect at Home. Current as of: December 18, 2018Content Version: 12.4 ?? 5334-1737 FlyData. Care instructions adapted under license by [facility]. If you have questions about a medical condition or this instruction, always ask your healthcare professional. FlyData disclaims any warranty or liability for your [...] strips. 300 each 3 12/14/2014 Blood-Glucose Meter (ShootHomeTOUCH ULTRA2) KitIndications:Type 2 diabetes mellitus, uncontrolled by Other route. 1 = one blood glucose meter kit. 1 each 0 12/14/2014 Insulin [place], Disposable, (BD INSULIN PEN NEEDLE UF [...] PM EDT Office Visit Cardiology at [address] [address] Milagros Hernandez MD [facility] [place] [address] Scheduled Procedures Name Priority Associated Diagnoses Date/Ti sc EGD, UPPER GI ENDOSCOPY (WRV U 2.09) Peptic stricture of esophagus documented as of this encounter Procedures Procedure Name Priority Date/Time Associated Diagnosis Comments POCT GLUCOSE Routine 04/30/2023 4:13 PM EST Up Gi Endoscopy, Ball Dil, 30Mm (89766) 04/30/2023 3:25 PM EST Peptic stricture of esophagus UPPER GI ENDOSCOPY Routine 04/30/2023 3: 14 PM EST POCT GLUCOSE Routine 04/30/2023 2:09 PM EST documented in this encounter Results * POCT Glucose (04/30/2023 4:13 PM EST) Glucose, POC 81 65 - 199 mg/dL [facility] Comment: Supplemental ranges: <140 mg/dL before meals <180 mg/dL all other times of the day Blood 04/30/2023 4:13 PM EST 04/30/2023 4:13 PM EST David Dejesus MD POINT OF CARE TEST ORDERABLES Performing Organization Address City/State/[facility] Co de Phone Number [facility] [place] [address] * UPPER GI ENDOSCOPY (04/30/2023 3:14 PM EST) [facility] UPPER GI ENDOSCOPY [facility] Endoscopy Procedure Date: 04/30/2023 3:14 PM ? Patient Name: Jennifer Irving ? N: [id number] ? Date of : 1960 ? Age: 62 ? Order #: [id number] ? Instrument Name: [id number] ? Procedure: ? Upper GI endoscopy Indications: [...] PROVATION 04/30/2023 3:14 PM EST Ana Gillespie TELEPHONE OPERATORS SUPERVISOR GENERAL SURGICAL ORD ERABLES PROVATION * POCT Glucose (04/30/2023 2:09 PM EST) Glucose, POC 75 65 - 199 mg/dL [facility] Comment: Supplemental ranges: <140 mg/dL before meals <180 mg/dL all other times of the day Blood 04/30/2023 2:09 PM EST 04/30/2023 2:09 PM EST David Dejesus MD POINT OF CARE TEST ORDERABLES [facility] [place] [address] documented in this encounter Visit Diagnoses Not [...] RN) documented in this encounter Care Teams Sales And Production Manager Relationship Specialty Start Date End Date Ana Gillespie APRN [address] [place] [address] PCP - General Family Medicine 02/03/19 documented as of this encounter
--- OUTSIDE RECORDS SUMMARY | 2024-02-05 12:45 | XMS_ITS | Encounter Summary ---
Author Organization [facility] Address [facility] [place] [address] Care Team Providers Care Frame Builder Name Role Phone Ana Gillespie VAUGHN Primary Care Provider [phone] Encounter Details Date Type Department Care Team (Late st Contact Info) Description 03/16/2023 1:00 PM EST - 03/16/2023 1:30 PM EST Surgery Gastroenterology at [facility] [place] [address] David Dejesus MD [facility] [place] [address] EGD,WITH DILATION ESOPHAGUS WITH BALLOON,< 30 MM [...] the day after the procedure, use an lbka-ivj-pzucldl spray to numb your throat. Sucking on [...] occurs, please contact your Doctor. Please call [phone] before 8pm Mon-Fri with problems, questions or concerns. If you call after 8pm or on weekends, call the Hospital at [phone] and ask to speak to the Business System Manager vehicle sales professional and the seismograph operator helper will contact that person for you. When should you call for help? Call [phone] anytime you think you may need emergency [...] more? Visit our health information library at [email or web address] Life Pluso You can also view health information on Simply Pasta & More, your personal patient account. Log in or sign uptoday. Enter J014 in the search box to learn more about Esophageal Dilation: What to Expect at Home. Current as of: December 18, 2018Content Version: 12.4 ?? [id number] Onavo. Care instructions adapted under license by [facility]. If you have questions about a medical condition or this instruction, always ask your healthcare professional. Onavo disclaims any warranty or liability for your [...] meter kit. 1 each 0 12/14/2014 Insulin [place], Disposable, (BD INSULIN PEN NEEDLE UF MINI) [...] 4:00 PM EDT Office Visit Cardiology at [address] [address] Milagros Hernandez MD [facility] [place] [address] Scheduled Procedures Name Priority Associated Diagnoses Date/Ti wy EGD, UPPER GI ENDOSCOPY (WRV U 2.09) Peptic stricture of esophagus documented as of this encounter Procedures Procedure Name Priority Date/Time Associated Diagnosis Comments Up Gi Endoscopy, Ball Dil, 30Mm (22302) 03/16/2023 1:03 PM EST Peptic stricture of esophagus UPPER GI ENDOSCOPY Routine 03/16/2023 12 :23 PM EST POCT GLUCOSE Routine 03/16/2023 12:05 PM EST documented in this encounter Results * UPPER GI ENDOSCOPY (03/16/2023 12:23 PM EST) Pathologist [facility] UPPER GI ENDOSCOPY [facility] Endoscopy Procedure Date: 03/16/2023 12:23 PM ? Patient Name: Jennifer Irving ? Date of : 1960 ? Age: 62 ? Order #: [id number] ? Instrument Name: [id number]- [id number] ? Procedure: ? Upper GI endoscopy Providers: ? David Dejesus MD, Parminder Craig ? Ayo Mao, Ayo ? Tanja Vargas Referring MD: ?Ana Keith: ? Monitored Anesthesia [...] 03/16/2023 12:2 3 PM EST Ana Gillespie APRN GENERAL SURGICAL ORD ERABLES PROVATION * POCT Glucose (03/16/2023 12:05 PM EST) Glucose, POC 104 65 - 199 mg/dL [facility] Comment: Supplemental ranges: <140 mg/dL before meals <180 mg/dL all other times of the day Blood 03/16/2023 12:0 5 PM EST 03/16/2023 12:05 PM EST David Dejesus MD POINT OF CARE TEST ORDERABLES Performing Organization Address [facility]/ZIP Co de Phone Number [facility] [place] [address] documented in this encounter Visit Diagnoses Diagnosis [...] RN) documented in this encounter Care Teams Frame Builder Relationship Specialty Start Date End Date Ana Gillespie APRN [address] [place] [address] PCP - General Family Medicine 02/03/19 documented as of this encounter
--- OUTSIDE RECORDS SUMMARY | 2024-02-05 12:45 | XMS_ITS | Encounter Summary ---
[place] [address] Care Team Providers Care Gas Regulator Repairer Helper Name Role Phone Ana Gillespie VAUGHN Primary Care Provider [phone] Reason for Referral * Diagnostic Test (Routine) - Closed Specialty Diagnoses / Procedures Referred By Contjovani t Referred To Contact Radiology Diagnoses Farrell's esophagus with high grade dysplasia Gastrostomy tube in place Procedures IR G-Tube Check/Change Steven Harding MD [facility] [place] [address] [place] [address] Referral ID Status Reason Start Date Expiration Date V isits Requested Visits Authorized [id number] Closed Specialty Service Requested 03/09/2023 09/06/2024 1 1 Encounter Details Date Type Department Care Team (Late st Contact Info) Description 03/09/2023 [place] [address] Steven Harding MD [facility] [place] [address] Farrell's esophagus with high grade dysplasia; Gastrostomy [...] at which time a balloon retrained 16 Romansh EnFit G-tube was placed. Date/Procedure Meds Given/Comments [...] IR G-Tube Check/Change 11/27/2022 Hang Cooper PA [facility] INTERVENTIONL RAD IR G-TUBE PLACEMENT 09/11/2022 IR G-Tube Placement 09/11/2022 Moustapha Hart MD [facility] INTERVENTIONL RAD IR SUTURE RELEASE 09/25/2022 IR Suture Release 09/25/2022 Yoselin Ghosh PA [facility] INTERVENTIONL RAD PERCUTANEOUS GASTROSTOMY N/A 09/11/2022 PERCUTANEOUS GASTROSTOMY performed by Aiden Flores MD at [facility] CATY PRO COLONOSCOPY, BIOPSY N/A 03/20/2016 COLONOSCOPY FLEXIBLE, WITH BX performed by David Dejesus MD at [facility] ENDOSCOPY PRO COLONOSCOPY, DIAGNOSTIC N/A 03/01/2020 COLONOSCOPY, DIAGNOSTIC performed by David Dejesus MD at [facility] ENDOSCOPY PRO ENDOSCOPIC US EXAM, ESOPH N/A 03/31/2022 UPPER EUS- ENDOSCOPIC ULTRASOUND performed by David Dejesus MD at [facility] ENDOSCOPY PRO UP GI ENDOSCOPY, BALL DIL, 30MM N/A 12/24/2022 EGD,WITH DILATION ESOPHAGUS WITH BALLOON,< 30 MM (WRVU 2.67) [facility] ENDOSCOPY, BALL DIL, 30MM N/A 01/12/2023 EGD,WITH DILATION ESOPHAGUS WITH BALLOON,< 30 MM (WRVU 2.67) performed by David Dejesus MDat [facility] ENDOSCOPY PRO UP GI ENDOSCOPY, BALL DIL, 30MM N/A 02/26/2023 EGD,WITH DILATION ESOPHAGUS WITH BALLOON,< 30 MM (WRVU 2.67) [facility] ENDOSCOPY PRO UPPER GI ENDOSCOPY, BIOPSY N/A 04/03/2014 UPPER GASTROINTESTINAL ENDOSCOPY,WITH BIOPSY SINGLE OR MULTIPLE performed by David Dejesus MDat [facility] ENDOSCOPY PRO UPPER GI ENDOSCOPY, BIOPSY N/A 03/20/2016 EGD WITH BIOPSY performed by David Dejesus MD at [facility] ENDOSCOPY PRO UPPER GI ENDOSCOPY, BIOPSY N/A 11/22/2018 EGD WITH BIOPSY (WRVU 2.49) performed by David Dejesus MD at [facility] ENDOSCOPY PRO UPPER GI ENDOSCOPY, BIOPSY N/A 03/01/2020 UPPER GASTROINTESTINAL ENDOSCOPY,WITH BIOPSY SINGLE OR MULTIPLE (WRVU 2.49) performed by David Dejesus MD at [facility] ENDOSCOPY PRO UPPER GI ENDOSCOPY, BIOPSY N/A 09/23/2021 EGD WITH BIOPSY (WRVU 2.49) performed by David Dejesus MD at [facility] ENDOSCOPY PRO UPPER GI ENDOSCOPY, BIOPSY N/A 03/31/2022 EGD WITH BIOPSY (WRVU 2.49) performed by David Dejesus MD at [facility] ENDOSCOPY PRO UPPER GI ENDOSCOPY, BIOPSY N/A 07/03/2022 EGD WITH BIOPSY (WRVU 2.49) performed by David Dejesus MD at [facility] ENDOSCOPY PRO UPPER GI ENDOSCOPY, DIAGNOSTIC N/A 04/03/2014 EGD, UPPER GI ENDOSCOPY performed by David Dejesus MD at [facility] ENDOSCOPY PRO UPPER GI ENDOSCOPY, DIAGNOSTIC N/A 03/01/2020 EGD, UPPER GI ENDOSCOPY performed by David Dejesus MD at [facility] ENDOSCOPY PRO UPPER GI ENDOSCOPY, DIAGNOSTIC N/A 09/09/2022 EGD, UPPER GI ENDOSCOPY (WRVU 2.09) performed by Ayo Russ MD at [facility] MAIN OR Medications: Current Outpatient Medications [...] 3 lancets (ONE TOUCH DELICA) 33 [facility] 1 each by Other route 3 times daily. by Other route. 1 box= 100 test strips; 3 boxes = 300 test strips. 300 each 3 Blood-Glucose Meter (ONETOUCH ULTRA2) Kit by Other route. 1 = one blood glucose meter kit. 1 each 0 Insulin [place], Disposable, (BD INSULIN PEN NEEDLE UF MINI) [...] 4:00 PM EDT Office Visit Cardiology at [address] [address] Milagros Hernandez MD [facility] [place] [address] Scheduled Procedures Name Priority Associated Diagnoses Date/Ti [...] procedure was performed under fluoroscopic guidance. ??A stock analyst fluoroscopic image was obtained. ??Contrast was injected through the gastrostomy catheter and another fluoroscopic image was obtained. ??Through the catheter, an 0.035 Amplatz wire was advanced. ??The catheter was removed. ??Over the wire, a new 16-Fr mkz-ohq-krndrgf (ESTRELLITA) gastrostomy catheter was advanced. ??The retention [...] gastric lumen. ?? Exchange for new 16-Fr ksn-qiu-zumrufg (ESTRELLITA) catheter positioned within the stomach. ?? Impression: Successful gastrostomy catheter exchange. ??The catheter may be used immediately. Resident/Fellow: None. Attending: Dr. Geronimo Chmabers. I, Dr. Chambers, was present throughout the procedure. Azeem Alarcon MD IMG IR ORDERABLES documented in this encounter Visit Diagnoses Diagnosis Farrell's esophagus with high grade dysplasia Farrell's esophagus Gastrostomy tube in place Farrell's esophagus with high grade dysplasia Farrell's esophagus Gastrostomy tube in place documented in this encounter Care Teams Gas Regulator Repairer Helper Relationship Specialty Start Date End Date Ana Gillespie APRN [address] [place] [address] PCP - General Family Medicine 02/03/19 documented as of this encounter
--- OUTSIDE RECORDS SUMMARY | 2024-02-05 12:45 | XMS_ITS | Encounter Summary ---
Author Organization [facility] [place] [address] Care Team Providers Care Combine Inspector Name Role Phone Ana Gillespie VAUGHN Primary Care Provider [phone] Encounter Details Date Type Department Care Team (Late st Contact Info) Description 05/27/2023 Telephone [place] [phone] Chiquita James, RN Social History Tobacco Use [...] PM EDT Office Visit Cardiology at [address] [phone] Milagros Hernandez MD [facility] [place] [address] Scheduled Procedures Name Priority Associated Diagnoses Date/Ti me EGD, UPPER GI ENDOSCOPY (WRV U 2.09) Peptic stricture of esophagus documented as of this encounter Visit Diagnoses Not on filedocumented in this encounter Care Teams Combine Inspector Relationship Specialty Start Date End Date Ana Gillespie APRN [address] [place] [address] PCP - General Family Medicine 02/03/19 documented as of this encounter
--- OUTSIDE RECORDS SUMMARY | 2024-02-05 12:45 | XMS_ITS | Encounter Summary ---
Author Organization [facility] [place] [address] Care Team Providers Care Eggs Inspector Name Role Phone Ana Gillespie APRN Primary Care Provider [phone] Encounter Details Date Type Department Care Team (Late st Contact Info) Description 05/25/2023 Orders [place] [phone] David Dejesus MD [facility] [place] [address] Primary parkinsonism Social History Tobacco Use Types [...] PM EDT Office Visit Cardiology at [address] [address] Milagros Hernandez MD [facility] [place] [address] Scheduled Procedures Name Priority Associated Diagnoses Date/Ti me EGD, UPPER GI ENDOSCOPY (WRV U 2.09) Peptic stricture of esophagus documented as of this encounter Visit Diagnoses Diagnosis Primary parkinsonism Paralysis agitans documented in this encounter Care Teams Eggs Inspector Relationship Specialty Start Date End Date Ana Gillespie APRN [address] [place] [address] PCP - General Family Medicine 02/03/19 documented as of this encounter
--- OUTSIDE RECORDS SUMMARY | 2024-02-05 12:45 | XMS_ITS | Encounter Summary ---
[place] [address] Care Team Providers Care Security Compliance Specialist Name Role Phone Ana Gillespie VAUGHN Primary Care Provider [phone] Reason for Referral * Diagnostic Test (Routine) - Closed Specialty Diagnoses / Procedures Referred By Esperanza rodríguez Referred To Contact Radiology Diagnoses Farrell's esophagus with high grade dysplasia Gastrostomy tube in place Procedures IR G-Tube Check/Change Steevn Harding MD [facility] [place] [address] [place] [address] Referral ID Status Reason Start Date Expiration Date V isits Requested Visits Authorized [id number] Closed Specialty Service Requested 03/09/2023 09/06/2024 1 1 Reason for Visit * Diagnostic Test (Routine) - Closed Specialty Diagnoses / Procedures Referred By Esperanza rodríguez Referred To Contact Radiology Diagnoses Farrell's esophagus with high grade dysplasia Gastrostomy tube in place Procedures IR G-Tube Check/Change Steven Harding MD [facility] [place] [address] [place] [address] Referral ID Status Reason Start Date Expiration Date V isits Requested Visits Authorized [id number] Closed Specialty Service Requested 03/09/2023 09/06/2024 1 1 Encounter Details Date Type Department Care Team (Latest Contact Info) Description 03/10/2023 12:57 PM EDT - 03/10/2023 11:59 PM EDT Hospital [place] [address] Azeem Alarcon MD [facility] [place] [address] Farrell's esophagus with high grade dysplasia; Gastrostomy [...] Jordan RN - 03/10/2023 4:17 PM EDT [facility] Interventional Radiology Discharge Instructions for Feeding Tube [...] or its attachments. INTERVENTIONAL RADIOLOGY PHONE NUMBERS [phone] If you have a NON Low profile feeding tube, call with any questions or concerns. During regular office hours call: [phone]. If it is after regular office hours, weekends or holidays, please call [phone] and ask to speak to the Fish Net Maker fire protection equipment technician for Interventional Radiology. If you have a low profile ???ESTRELLITA-BARLOW?? feeding tube, please call Dejah Stauffer RN for any issues: [phone]. Revised 02/23/19 documented in this encounter Medications [...] meter kit. 1 each 0 12/14/2014 Insulin [place], Disposable, (BD INSULIN PEN NEEDLE UF MINI) [...] of : 1960 AGE: 62 y.o. Address: [address] [address] Phone: There are no phone numbers on [...] 4:00 PM EDT Office Visit Cardiology at [address] [address] Milagros Hernandez MD [facility] [place] [address] Scheduled Procedures Name Priority Associated Diagnoses Date/Ti [...] procedure was performed under fluoroscopic guidance. ??A computer engineering technologist fluoroscopic image was obtained. ??Contrast was injected through the gastrostomy catheter and another fluoroscopic image was obtained. ??Through the catheter, an 0.035 Amplatz wire was advanced. ??The catheter was removed. ??Over the wire, a new 16-Fr dpw-jzm-cojjqkf (ESTRELLITA) gastrostomy catheter was advanced. ??The retention [...] gastric lumen. ?? Exchange for new 16-Fr kme-uwo-ysoogqg (ESTRELLITA) catheter positioned within the stomach. ?? Impression: Successful gastrostomy catheter exchange. ??The catheter may be used immediately. Resident/Fellow: None. Attending: Dr. Geronimo Chambers. I, Dr. Chambers, was present throughout the procedure. Azeem Alarcon MD IMG IR ORDERABLES * POCT Glucose (03/10/2023 3:25 PM EDT) Glucose, POC 76 65 - 199 mg/dL [facility] Comment: Supplemental ranges: <140 mg/dL before meals <180 mg/dL all other times of the day Blood 03/10/2023 3:25 PM EDT 03/10/2023 3:25 PM EDT Azeem Alarcon MD POINT OF CARE TEST O RDERABLES [facility] [place] [address] documented in this encounter Visit Diagnoses Diagnosis [...] mLs documented in this encounter Care Teams Security Compliance Specialist Relationship Specialty Start Date End Date Ana Gillespie APRN [address] [place] [address] PCP - General Family Medicine 02/03/19 documented as of this encounter
--- OUTSIDE RECORDS SUMMARY | 2024-02-05 12:45 | XMS_ITS | Encounter Summary ---
Author Organization [facility] Marly petersen [place] [id number] Care Team Providers Care Cement Kiln Operator Name Role Phone Ana Gillespie APRN Primary Care Provider [phone] Encounter Details Date Type Department Care Team (Late st Contact Info) Description 04/30/2023 3:26 PM EST Anesthesia [place] [phone] Leigh Carter MD [facility] [address] ANESTHESIOLOGY DEPT [place] [id number] Cristine Gomez CRNA [facility] [place] [address] Anesthesia Record Procedure Summary Procedure Name Responsible [...] questions and acknowledgement of understanding Susy Juárez MANAGER ANALYTICAL 1550 Procedure Stop 1555 Break/Relief Out 1557 [...] Procedure Summary Date: 04/30/23 Room / Location: [facility] ENDO 2 / [facility] ENDOSCOPY Anesthesia Start: 1526 Anesthesia Stop: 1600 Procedure: EGD,WITH DILATION ESOPHAGUS WITH BALLOON,< 30 MM (WRVU 2.67) (Trunk) Diagnosis: Peptic stricture of esophagus (peptic striture - schedule in two weeks) Surgeons: David Dejesus MD Responsible Provider: Leigh Carter MD Anesthesia Type: general ASA Status: 3 All Anesthesia Providers: Anesthesiologist: Leigh Carter MD MANAGER ANALYTICAL: Tapan Simpson CRNA Vitals Value Taken Time BP 102/57 04/30/23 1620 Temp Pulse Resp SpO2 96 % 04/30/23 1623 Pain Level 0 04/30/23 1620 Vitals shown include unfiled device data. Patient Location: PACU/[facility] Level of Consciousness: Awake and Alert [...] IR G-Tube Check/Change 11/27/2022 Hang Cooper, ROSLYN [facility] INTERVENTIONL RAD ??? IR G-TUBE CHECK/CHANGE 03/10/2023 IR G-Tube Check/Change 03/10/2023 Geronimo Chambers, [facility] INTERVENTIONL RAD ??? IR G-TUBE CHECK/CHANGE 04/06/2023 IR G-Tube Check/Change 04/06/[address] [facility] INTERVENTIONL RAD ??? IR G-TUBE PLACEMENT 09/11/2022 IR G-Tube Placement 09/11/[address] [facility] INTERVENTIONL RAD ??? IR SUTURE RELEASE 09/25/2022 IR Suture Release 09/25/[address] [facility] INTERVENTIONL RAD ??? PERCUTANEOUS GASTROSTOMY N/A 09/11/2022 PERCUTANEOUS GASTROSTOMY performed by Aiden Flores MD at [facility] CATY ??? PRO COLONOSCOPY, BIOPSY N/A 03/20/2016 COLONOSCOPY FLEXIBLE, WITH BX performed by David Dejesus MD at [facility] ENDOSCOPY ??? PRO COLONOSCOPY, DIAGNOSTIC N/A 03/01/2020 COLONOSCOPY, DIAGNOSTIC performed by David Dejesus MD at [facility] ENDOSCOPY ??? PRO ENDOSCOPIC US EXAM, ESOPH N/A 03/31/2022 UPPER EUS- ENDOSCOPIC ULTRASOUND performed by David Dejesus MD at [facility] ENDOSCOPY ??? PRO UP GI ENDOSCOPY, BALL DIL, 30MM N/A 12/24/2022 EGD,WITH DILATION ESOPHAGUS WITH BALLOON,< 30 MM (WRVU 2.67) performed by David Dejesus MDat [facility] ENDOSCOPY ??? PRO UP GI ENDOSCOPY, BALL DIL, 30MM N/A 01/12/2023 EGD,WITH DILATION ESOPHAGUS WITH BALLOON,< 30 MM (WRVU 2.67) [facility] ??? PRO UP GI ENDOSCOPY, BALL DIL, 30MM N/A 02/26/2023 EGD,WITH DILATION ESOPHAGUS WITH BALLOON,< 30 MM (WRVU 2.67) performed by David Dejesus [facility] ENDOSCOPY ??? PRO UP GI ENDOSCOPY, BALL DIL, 30MM N/A 03/16/2023 EGD,WITH DILATION ESOPHAGUS WITH BALLOON,< 30 MM (WRVU 2.67) performed by David Dejesus [facility] ENDOSCOPY ??? PRO UP GI ENDOSCOPY, BALL DIL, 30MM N/A 03/30/2023 EGD,WITH DILATION ESOPHAGUS WITH BALLOON,< 30 MM (WRVU 2.67) performed by David Dejesus [facility] ENDOSCOPY ??? PRO UPPER GI ENDOSCOPY, BIOPSY N/A 04/03/2014 UPPER GASTROINTESTINAL ENDOSCOPY,WITH BIOPSY SINGLE OR MULTIPLE performed by David Dejesus [facility] ENDOSCOPY ??? PRO UPPER GI ENDOSCOPY, BIOPSY N/A 03/20/2016 EGD WITH BIOPSY performed by David Dejesus MD at [facility] ENDOSCOPY ??? PRO UPPER GI ENDOSCOPY, BIOPSY N/A 11/22/2018 EGD WITH BIOPSY (WRVU 2.49) performed by David Dejesus MD at [facility] ENDOSCOPY ??? PRO UPPER GI ENDOSCOPY, BIOPSY N/A 03/01/2020 UPPER GASTROINTESTINAL ENDOSCOPY,WITH BIOPSY SINGLE OR MULTIPLE (WRVU 2.49) performed by David Dejesus MD at [facility] ENDOSCOPY ??? PRO UPPER GI ENDOSCOPY, BIOPSY N/A 09/23/2021 EGD WITH BIOPSY (WRVU 2.49) performed by David Dejesus MD at [facility] ENDOSCOPY ??? PRO UPPER GI ENDOSCOPY, BIOPSY N/A 03/31/2022 EGD WITH BIOPSY (WRVU 2.49) performed by David Dejesus MD at [facility] ENDOSCOPY ??? PRO UPPER GI ENDOSCOPY, BIOPSY N/A 07/03/2022 EGD WITH BIOPSY (WRVU 2.49) performed by David Dejesus MD at [facility] ENDOSCOPY ??? PRO UPPER GI ENDOSCOPY, DIAGNOSTIC N/A 04/03/2014 EGD, UPPER GI ENDOSCOPY performed by David Dejesus MD at [facility] ENDOSCOPY ??? PRO UPPER GI ENDOSCOPY, DIAGNOSTIC N/A 03/01/2020 EGD, UPPER GI ENDOSCOPY performed by David Dejesus MD at [facility] ENDOSCOPY ??? PRO UPPER GI ENDOSCOPY, DIAGNOSTIC N/A 09/09/2022 EGD, UPPER GI ENDOSCOPY (WRVU 2.09) performed by Ayo Russ MD at [facility] MAIN OR Social History Tobacco Use ??? [...] risks discussed with patient. Plan discussed with MANAGER ANALYTICAL and attending. Anesthesia Screening documented in this encounter Plan of Treatment Upcoming Encounters Date Type Department Care Team (Late st Contact Info) Description 03/10/2024 4:00 PM EDT Office Visit Cardiology at [address] [phone] Milagros Hernandez MD [facility] [place] [address] Scheduled Procedures Name Priority Associated Diagnoses Date/Ti [...] mg documented in this encounter Care Teams Cement Kiln Operator Relationship Specialty Start Date End Date Ana Gillespie APRN [address] [place] [address] PCP - General Family Medicine 02/03/19 documented as of this encounter
--- OUTSIDE RECORDS SUMMARY | 2024-02-05 12:45 | XMS_ITS | Encounter Summary ---
Author Organization [facility] Address [facility] [place] [address] Care Team Providers Care Manufacturing Area Manager Name Role Phone Ana Gillespie VAUGHN Primary Care Provider [phone] Encounter Details Date Type Department Care Team (Late st Contact Info) Description 03/30/2023 4:30 PM EST - 03/30/2023 5:00 PM EST Surgery Gastroenterology at [facility] [address] David Dejesus MD [facility] [place] [address] EGD,WITH DILATION ESOPHAGUS WITH BALLOON,< 30 MM [...] the day after the procedure, use an ufjg-rlc-yydezro spray to numb your throat. Sucking on [...] occurs, please contact your Doctor. Please call [phone] before 8pm Mon-Fri with problems, questions or concerns. If you call after 8pm or on weekends, call the Hospital at [phone] and ask to speak to the Senior Electronics Design Engineer network operations analyst and the pocket grinder operator will contact that person for you. [...] any problems. Where can you learn more? [facility] View your After Visit Summary and more online at [email or web address] If you would like to provide feedback about your hospital experience, please call the Office of Patient and Family Relations at . If you have received this After Visit Summary in error, please immediately return it in person to the department, or notify the [facility] Privacy Office by calling toll free at between the hours of 8AM and 5PM to arrange for our retrieval of the documents at no cost to you. Content Version: 12.2 ?? 0046-7754 [employer]. Care instructions adapted under license by [facility]. If you have questions about a medical condition or this instruction, always ask your healthcare professional. [employer] disclaims any warranty or liability for your [...] the day after the procedure, use an ygxg-kwv-awhcopi spray to numb your throat. Sucking on [...] occurs, please contact your Doctor. Please call [phone] before 8pm Mon-Fri with problems, questions or concerns. If you call after 8pm or on weekends, call the Hospital at [phone] and ask to speak to the Senior Electronics Design Engineer network operations analyst and the pocket grinder operator will contact that person for you. [...] any problems. Where can you learn more? [facility] View your After Visit Summary and more online at [email or web address] If you would like to provide feedback about your hospital experience, please call the Office of Patient and Family Relations at . If you have received this After Visit Summary in error, please immediately return it in person to the department, or notify the [facility] Privacy Office by calling toll free at between the hours of 8AM and 5PM to arrange for our retrieval of the documents at no cost to you. Content Version: 12.2 ?? 7416-6546 [employer]. Care instructions adapted under license by [facility]. If you have questions about a medical condition or this instruction, always ask your healthcare professional. [employer] disclaims any warranty or liability for your [...] meter kit. 1 each 0 12/14/2014 Insulin [place], Disposable, (BD INSULIN PEN NEEDLE UF MINI) [...] PM EDT Office Visit Cardiology at [address] [address] Milagros Hernandez MD [facility] [place] [address] Scheduled Procedures Name Priority Associated Diagnoses Date/Ti va EGD, UPPER GI ENDOSCOPY (WRV U 2.09) Peptic stricture of esophagus documented as of this encounter Procedures Procedure Name Priority Date/Time Associated Diagnosis Comments Up Gi Endoscopy, Ball Dil, 30Mm (22445) 03/30/2023 6:02 PM EST Peptic stricture of esophagus UPPER GI ENDOSCOPY Routine 03/30/2023 5: 58 PM EST documented in this encounter Results * UPPER GI ENDOSCOPY (03/30/2023 5:58 PM EST) UPPER GI ENDOSCOPY [facility] Endoscopy Procedure Date: 03/30/2023 5:58 PM ? Patient Name: Jennifer Irving ? Date of : 1960 ? Age: 62 ? Order #: [id number] ? Instrument Name: [id number]- [id number] ? Procedure: ? Upper GI endoscopy Indications: ? Stenosis of the esophagus Providers: ? David Dejesus MD, Jennifer Howell ? Theodora Garibay, ? Green Building Materials Designer Referring MD: ?Ana Keith: ? Propofol per Anesthesia Complications: [...] PROVATION 03/30/2023 5:58 PM EST Ana Gillespie PARTS SALES MANAGER GENERAL SURGICAL ORD ERABLES PROVATION documented [...] CRNA) documented in this encounter Care Teams Manufacturing Area Manager Relationship Specialty Start Date End Date Ana Gillespie APRN [address] [place] [address] PCP - General Family Medicine 02/03/19 documented as of this encounter
--- OUTSIDE RECORDS SUMMARY | 2024-02-05 12:45 | XMS_ITS | Encounter Summary ---
Author Organization [facility] Address [facility] [place] [address] Care Team Providers Care Sales And Marketing Professional Name Role Phone Ana Gillespie VAUGHN Primary Care Provider [phone] Encounter Details Date Type Department Care Team (Latest Contact Info) Description 03/16/2023 11:29 AM EST - 03/16/2023 2:40 PM EST Hospital Encounter Gastroenterology at [facility] [place] [address] David Dejesus MD [facility] [place] [address] Discharge Disposition: Home Social History Tobacco Use [...] the day after the procedure, use an ysqo-adz-kfpurii spray to numb your throat. Sucking on [...] occurs, please contact your Doctor. Please call [phone] before 8pm Mon-Fri with problems, questions or concerns. If you call after 8pm or on weekends, call the Hospital at [phone] and ask to speak to the Photovoltaic Panel Installer hazard mitigation officer and the washerette machine operator will contact that person for you. When should you call for help? Call [phone] anytime you think you may need emergency [...] more? Visit our health information library at [email or web address] You can also view health information on [employer] your personal patient account. Log in or sign uptoday. Enter J014 in the search box to learn more about Esophageal Dilation: What to Expect at Home. Current as of: December 18, 2018Content Version: 12.4 ?? 6420-9507 [employer]. Care instructions adapted under license by [facility]. If you have questions about a medical condition or this instruction, always ask your healthcare professional. [employer] disclaims any warranty or liability for your [...] meter kit. 1 each 0 12/14/2014 Insulin [place], Disposable, (BD INSULIN PEN NEEDLE UF MINI) [...] 4:00 PM EDT Office Visit Cardiology at [address] [address] Milagros Hernandez MD [facility] [place] [address] Scheduled Procedures Name Priority Associated Diagnoses Date/Ti tn EGD, UPPER GI ENDOSCOPY (WRV U 2.09) Peptic stricture of esophagus documented as of this encounter Procedures Procedure Name Priority Date/Time Associated Diagnosis Comments Up Gi Endoscopy, Ball Dil, 30Mm (99609) 03/16/2023 1:03 PM EST Peptic stricture of esophagus UPPER GI ENDOSCOPY Routine 03/16/2023 12 :23 PM EST POCT GLUCOSE Routine 03/16/2023 12:05 PM EST documented in this encounter Results * UPPER GI ENDOSCOPY (03/16/2023 12:23 PM EST) UPPER GI ENDOSCOPY [facility] Endoscopy Procedure Date: 03/16/2023 12:23 PM ? Patient Name: Jennifer Irving ? Date of : 1960 ? Age: 62 ? Order #: [id number] ? Instrument Name: [id number]- [id number] ? Procedure: ? Upper GI endoscopy Providers: [...] Glucose, POC 104 65 - 199 mg/dL [facility] Comment: Supplemental ranges: <140 mg/dL before meals <180 mg/dL all other times of the day Blood 03/16/2023 12:0 5 PM EST 03/16/2023 12:05 PM EST David Dejesus MD POINT OF CARE TEST ORDERABLES [facility] [place] [address] documented in this encounter Visit Diagnoses Not [...] in this encounter Care Teams Sales And Marketing Professional Relationship Specialty Start Date End Date Ana Gillespie APRN [address] [place] [address] PCP - General Family Medicine 02/03/19 documented as of this encounter
--- OUTSIDE RECORDS SUMMARY | 2024-02-05 12:45 | XMS_ITS | Encounter Summary ---
Author Organization [facility] Address [facility] [place] [address] Care Team Providers Care Trucking Contractor Name Role Phone Ana Gillespie VAUGHN Primary Care Provider [phone] Encounter Details Date Type Department Care Team (Latest Contact Info) Description 06/01/2023 7:00 AM EST - 06/01/2023 10:36 AM EST Hospital Encounter Gastroenterology at [facility] [place] [address] David Dejesus MD [facility] [place] [address] Discharge Disposition: Home Social History Tobacco Use [...] the day after the procedure, use an ypdt-uko-kvbjmgn spray to numb your throat. Sucking on [...] occurs, please contact your Doctor. Please call [phone] before 8pm Mon-Fri with problems, questions or concerns. If you call after 8pm or on weekends, call the Hospital at [phone] and ask to speak to the Mandarin Speaking Nanny vocational horticulture instructor and the hot saw operator will contact that person for you. When should you call for help? Call [phone] anytime you think you may need emergency [...] any problems. Where can you learn more? [facility] View your After Visit Summary and more online at [email or web address] If you would like to provide feedback about your hospital experience, please call the Office of Patient and Family Relations at . If you have received this After Visit Summary in error, please immediately return it in person to the department, or notify the [facility] Privacy Office by calling toll free at between the hours of 8AM and 5PM to arrange for our retrieval of the documents at no cost to you. Content Version: 12.2 ?? 5864-3973 [employer]. Care instructions adapted under license by [facility]. If you have questions about a medical condition or this instruction, always ask your healthcare professional. [employer] disclaims any warranty or liability for your [...] meter kit. 1 each 0 12/14/2014 Insulin [place], Disposable, (BD INSULIN PEN NEEDLE UF MINI) [...] glucose meter kit. 1 each 0 Insulin [place], Disposable, (BD INSULIN PEN NEEDLE UF MINI) 31 x 3/16 Needle 1 Device by [facility].(Non-Drug; Combo Route) route 3 [...] Dejesus MD - 06/01/2023 9:15 AM EST [facility] Operative Note Patient Name: Jennifer Irving : [id number] MR#: [id number] Case Date: 06/01/2023 This note was entered in error documented in this encounter Plan of Treatment Upcoming Encounters Date Type Department Care Team (Late st Contact Info) Description 03/10/2024 4:00 PM EDT Office Visit Cardiology at [address] [address] Milagros Hernandez MD [facility] [place] [address] Scheduled Procedures Name Priority Associated Diagnoses Date/Ti al EGD, UPPER GI ENDOSCOPY (WRV U 2.09) Peptic stricture of esophagus documented as of this encounter Procedures Procedure Name Priority Date/Time Associated Diagnosis Comments Up Gi Endoscopy, Ball Dil, 30Mm (30787) 06/01/2023 9:06 AM EST Peptic stricture of esophagus UPPER GI ENDOSCOPY Routine 06/01/2023 8: 54 AM EST POCT GLUCOSE Routine 06/01/2023 8:32 AM EST documented in this encounter Results * UPPER GI ENDOSCOPY (06/01/2023 8:54 AM EST) Pathologist [facility] UPPER GI ENDOSCOPY [facility] Endoscopy Procedure Date: 06/01/2023 8:54 AM ? Patient Name: Jennifer Irving ? Date of : 1960 ? Age: 62 ? Order #: [id number] ? Instrument Name: [id number] ? Procedure: ? Upper GI endoscopy Indications: ? Stricture dilation Providers: ? David Dejesus MD, Gaby ? Kenna Mckee Referring : ?Ana Keith: ? General Anesthesia [...] Procedure Code(s): ? --- Professional --- ? 53480, Esophagogastroduod enoscopy, ? flexible, transoral; diagnostic, ? including collection of specimen(s) ? by brushing or washing, when ? performed (separate procedure) CPT copyright 2022 [employer]. All rights reserved. The codes documented in this report are preliminary and upon dictionary editor review may be revised to meet current compliance requirements. Attending Participation: ? I personally performed the entire procedure. ? ___ David Dejesus MD 06/01/2023 9:37:18 AM This report has been signed electronically. Number of Addenda: 0 Note Initiated On: 06/01/2023 8:54 AM PROVATION 06/01/2023 8:54 AM EST Ana Gillespie APRN GENERAL SURGICAL ORD ERABLES PROVATION * POCT Glucose (06/01/2023 8:32 AM EST) Glucose, POC 102 65 - 199 mg/dL [facility] Comment: Supplemental ranges: <140 mg/dL before meals <180 mg/dL all other times of the day Blood 06/01/2023 8:32 AM EST 06/01/2023 8:32 AM EST David Dejesus MD POINT OF CARE TEST ORDERABLES Performing Organization Address City/[facility] Co de Phone Number [facility] [address] documented in this encounter Visit Diagnoses Not [...] RN) documented in this encounter Care Teams Trucking Contractor Relationship Specialty Start Date End Date Ana Gillespie APRN [address] [place] [address] PCP - General Family Medicine 02/03/19 documented as of this encounter
--- OUTSIDE RECORDS SUMMARY | 2024-02-05 12:45 | XMS_ITS | Encounter Summary ---
Author Organization [facility] [place] [address] Care Team Providers Care Mold Capper Helper Name Role Phone Ana Gillespie APRN Primary Care Provider [phone] Encounter Details Date Type Department Care Team (Late st Contact Info) Description 03/30/2023 6:01 PM EST Anesthesia [place] [phone] Betty Bhagat MD [facility] [place] [address] Cristine Gomez CRNA [facility] [place] [address] Anesthesia Record Procedure Summary Procedure Name Responsible [...] Procedure Summary Date: 03/30/23 Room / Location: [facility] ENDO 2 / [facility] ENDOSCOPY Anesthesia Start: 1800 Anesthesia Stop: Procedure: EGD,WITH DILATION ESOPHAGUS WITH BALLOON,< 30 MM (WRVU 2.67) (Trunk) Diagnosis: Peptic stricture of esophagus (peptic stricture dilation - please schedule Wednesday before ) Surgeons: David Dejesus MD Responsible Provider: Betty Bhagat MD Anesthesia Type: general ASA Status: 3 All Anesthesia Providers: Anesthesiologist: Betty Bhagat MD CHINCHILLA FARMER: Cristine Gomez CRNA Vitals Value Taken Time BP 114/57 03/30/23 1833 Temp Pulse Resp 16 03/30/23 1833 SpO2 99 % 03/30/23 1839 Pain Level 0 03/30/231832 Vitals shown include unfiled device data. Patient [facility] Level of Consciousness: Conscious but [...] [facility] Patient Active Problem List Diagnosis Date [...] IR G-Tube Check/Change 11/27/2022 Hang Cooper PA [facility] INTERVENTIONL RAD ??? IR G-TUBE CHECK/CHANGE 03/10/2023 IR G-Tube Check/Change 03/10/2023 Geronimo Chambers, [facility] INTERVENTIONL RAD ??? IR G-TUBE PLACEMENT 09/11/2022 IR G-Tube Placement 09/11/2022 Moustapha Hart MD [facility] INTERVENTIONL RAD ??? IR SUTURE RELEASE 09/25/2022 IR Suture Release 09/25/2022 Yoselin Ghosh PA [facility] INTERVENTIONL RAD ??? PERCUTANEOUS GASTROSTOMY N/A 09/11/2022 PERCUTANEOUS GASTROSTOMY performed by Aiden Flores MD at [facility] CATY ??? PRO COLONOSCOPY, BIOPSY N/A 03/20/2016 COLONOSCOPY FLEXIBLE, WITH BX performed by David Dejesus MD at [facility] ENDOSCOPY ??? PRO COLONOSCOPY, DIAGNOSTIC N/A 03/01/2020 COLONOSCOPY, DIAGNOSTIC performed by David Dejesus MD at [facility] ENDOSCOPY ??? PRO ENDOSCOPIC US EXAM, ESOPH N/A 03/31/2022 UPPER EUS- ENDOSCOPIC ULTRASOUND performed by David Dejesus MD at [facility] ENDOSCOPY ??? PRO UP GI ENDOSCOPY, BALL DIL, 30MM N/A 12/24/2022 EGD,WITH DILATION ESOPHAGUS WITH BALLOON,< 30 MM (WRVU 2.67) performed by David Dejesus [facility] ENDOSCOPY ??? PRO UP GI ENDOSCOPY, BALL DIL, 30MM N/A 01/12/2023 EGD,WITH DILATION ESOPHAGUS WITH BALLOON,< 30 MM (WRVU 2.67) performed by David Dejesus [facility] ENDOSCOPY ??? PRO UP GI ENDOSCOPY, BALL DIL, 30MM N/A 02/26/2023 EGD,WITH DILATION ESOPHAGUS WITH BALLOON,< 30 MM (WRVU 2.67) [facility]?? PRO UP GI ENDOSCOPY, BALL DIL, 30MM N/A 03/16/2023 EGD,WITH DILATION ESOPHAGUS WITH BALLOON,< 30 MM (WRVU 2.67) performed by David Dejesus [facility] ENDOSCOPY ??? PRO UPPER GI ENDOSCOPY, BIOPSY N/A 04/03/2014 UPPER GASTROINTESTINAL ENDOSCOPY,WITH BIOPSY SINGLE OR MULTIPLE [facility] ??? PRO UPPER GI ENDOSCOPY, BIOPSY N/A 03/20/2016 EGD WITH BIOPSY performed by David Dejesus MD at [facility] ENDOSCOPY ??? PRO UPPER GI ENDOSCOPY, BIOPSY N/A 11/22/2018 EGD WITH BIOPSY (WRVU 2.49) performed by David Dejesus MD at [facility] ENDOSCOPY ??? PRO UPPER GI ENDOSCOPY, BIOPSY N/A 03/01/2020 UPPER GASTROINTESTINAL ENDOSCOPY,WITH BIOPSY SINGLE OR MULTIPLE (WRVU 2.49) performed by David Dejesus MD at [facility] ENDOSCOPY ??? PRO UPPER GI ENDOSCOPY, BIOPSY N/A 09/23/2021 EGD WITH BIOPSY (WRVU 2.49) performed by David Dejesus MD at [facility] ENDOSCOPY ??? PRO UPPER GI ENDOSCOPY, BIOPSY N/A 03/31/2022 EGD WITH BIOPSY (WRVU 2.49) performed by David Dejesus MD at [facility] ENDOSCOPY ??? PRO UPPER GI ENDOSCOPY, BIOPSY N/A 07/03/2022 EGD WITH BIOPSY (WRVU 2.49) performed by David Dejesus MD at [facility] ENDOSCOPY ??? PRO UPPER GI ENDOSCOPY, DIAGNOSTIC N/A 04/03/2014 EGD, UPPER GI ENDOSCOPY performed by David Dejesus MD at [facility] ENDOSCOPY ??? PRO UPPER GI ENDOSCOPY, DIAGNOSTIC N/A 03/01/2020 EGD, UPPER GI ENDOSCOPY performed by David Dejesus MD at [facility] ENDOSCOPY ??? PRO UPPER GI ENDOSCOPY, DIAGNOSTIC N/A 09/09/2022 EGD, UPPER GI ENDOSCOPY (WRVU 2.09) performed by Ayo Russ MD at [facility] MAIN OR Social History Tobacco Use [...] risks discussed with patient. Plan discussed with CHINCHILLA FARMER and attending. Anesthesia Screening documented in this encounter Plan of Treatment Upcoming Encounters Date Type Department Care Team (Late st Contact Info) Description 03/10/2024 4:00 PM EDT Office Visit Cardiology at [address] [phone] Milagros Hernandez MD [facility] [place] [address] Scheduled Procedures Name Priority Associated Diagnoses Date/Ti [...] 2% injection syringe Intravenous, PRN, Starting on 03/30/23 at 1806, Until 03/30/23 at 1840, Anesthesia Intra-op, Routine Given 03/30/2023 6:06 PM EST 60 mg propofoL (Diprivan) (10 mg/mL) infusion Intravenous, CONTINUOUS PRN, Starting on 03/30/23 at 1806, Until 03/30/23 at 1840, Anesthesia Intra-op, Routine New Bag 03/30/2023 6:06 PM EST 150 mcg/kg/min 59.58 mL/hr propofoL (Diprivan) 10 mg/mL bolus injection (Anesthesia) Intravenous, PRN, Starting on 03/30/23 at 1806, Until Tu03/30/23 at 1840, Anesthesia Intra-op Given 03/30/2023 6:06 PM EST 50 mg documented in this encounter Care Teams Mold Capper Helper Relationship Specialty Start Date End Date Ana Gillespie APRN [address] [place] [address] PCP - General Family Medicine 02/03/19 documented as of this encounter
--- OUTSIDE RECORDS SUMMARY | 2024-02-05 12:46 | XMS_ITS | Encounter Summary ---
Author Organization [facility] Address [facility] [place] [address] Care Team Providers Care Plant Breeder Scientist Name Role Phone Ana Gillespie APRN Primary Care Provider [phone] Encounter Details Date Type Department Care Team (Latest Contact Info) Description 02/26/2023 12:03 PM EDT - 02/26/2023 3:41 PM EDT Hospital Encounter [place] [phone] David Dejesus MD [facility] [place] [address] Discharge Disposition: Home Social History Tobacco Use [...] the day after the procedure, use an majb-taz-qrlboru spray to numb your throat. Sucking on [...] occurs, please contact your Doctor. Please call [phone] before 8pm Mon-Fri with problems, questions or concerns. If you call after 8pm or on weekends, call the Hospital at [phone] and ask to speak to the Math Interventionist construction materials tester and the multigraph operator will contact that person for you. [...] any problems. Where can you learn more? [facility] View your After Visit Summary and more online at [email or web address] If you would like to provide feedback about your hospital experience, please call the Office of Patient and Family Relations at . If you have received this After Visit Summary in error, please immediately return it in person to the department, or notify the [facility] Privacy Office by calling toll free at between the hours of 8AM and 5PM to arrange for our retrieval of the documents at no cost to you. Content Version: 12.2 ?? [id number] [employer]. Care instructions adapted under license by [facility]. If you have questions about a medical condition or this instruction, always ask your healthcare professional. [employer] disclaims any warranty or liability for your [...] PM EDT Office Visit Cardiology at [address] [address] Milagros Hernandez MD [facility] [place] [address] Scheduled Procedures Name Priority Associated Diagnoses Date/Ti me EGD, UPPER GI ENDOSCOPY (WRV U 2.09) Peptic stricture of esophagus documented as of this encounter Procedures Procedure Name Priority Date/Time Associated Diagnosis Comments Up Gi Endoscopy, Ball Dil, 30Mm (97[address]) 02/26/2023 2:09 PM EDT Peptic stricture of esophagus POCT GLUCOSE Routine 02/26/2023 1:28 PM EDT documented in this encounter Results * POCT Glucose (02/26/2023 1:28 PM EDT) Glucose, POC 71 65 - 199 mg/dL [facility] Comment: Supplemental ranges: <140 mg/dL before meals <180 mg/dL all other times of the day Blood 02/26/2023 1:28 PM EDT 02/26/2023 1:28 PM EDT David Dejesus MD POINT OF CARE TEST ORDERABLES [facility] [place] [address] documented in this encounter Visit Diagnoses Not [...] 1337 (New Bag - Prov ider: Gaby oDan RN) documented in this encounter Care Teams Plant Breeder Scientist Relationship Specialty Start Date End Date Ana Gillespie APRN [address] [place] [address] PCP - General Family Medicine 02/03/19 documented as of this encounter
--- OUTSIDE RECORDS SUMMARY | 2024-02-05 12:46 | XMS_ITS | Encounter Summary ---
Author Organization [facility] Address [facility] [place] [address] Care Team Providers Care Graining Machine Operator Name Role Phone Ana Gillespie COMPLAINT ANALYST Primary Care Provider [phone] Reason for Visit * Reason Onset Date Comments Medication Refill 10/22/2022 Encounter Details Date Type Department Care Team (Late st Contact Info) Description 10/22/2022 Ref[place] [phone] David Dejesus MD [facility] [address] Social History Tobacco Use Types Packs/Day Years [...] PM EDT Office Visit Cardiology at [address] [phone] Milagros Hernandez MD [facility] [place] [address] Scheduled Procedures Name Priority Associated Diagnoses Date/Ti me EGD, UPPER GI ENDOSCOPY (WRV U 2.09) Peptic stricture of esophagus documented as of this encounter Visit Diagnoses Not on filedocumented in this encounter Care Teams Graining Machine Operator Relationship Specialty Start Date End Date Ana Gillespie APRN [address] [place] [address] PCP - General Family Medicine 02/03/19 documented as of this encounter
--- OUTSIDE RECORDS SUMMARY | 2024-02-05 12:46 | XMS_ITS | Encounter Summary ---
Author Organization [facility] [place] [address] Care Team Providers Care Instrument Mechanic Weapons System Name Role Phone Ana Gillespie VAUGHN Primary Care Provider [phone] Encounter Details Date Type Department Care Team (Late st Contact Info) Description 03/01/2023 Telephone [place] [phone] Jessica Beckman Social History Tobacco Use Types [...] Campos rtnd call. Msg sent to Urgent Room Server to call him back to sched pt. documented in this encounter Plan of Treatment Upcoming Encounters Date Type Department Care Team (Late st Contact Info) Description 03/10/2024 4:00 PM EDT Office Visit Cardiology at [address] [phone] Milagros Hernandez MD [facility] [place] [address] Scheduled Procedures Name Priority Associated Diagnoses Date/Ti me EGD, UPPER GI ENDOSCOPY (WRV U 2.09) Peptic stricture of esophagus documented as of this encounter Visit Diagnoses Not on filedocumented in this encounter Care Teams Instrument Mechanic Weapons System Relationship Specialty Start Date End Date Ana Gillespie APRN [address] [place] [address] PCP - General Family Medicine 02/03/19 documented as of this encounter
--- OUTSIDE RECORDS SUMMARY | 2024-02-05 12:46 | XMS_ITS | Encounter Summary ---
Author Organization [facility] Address [facility] [place] [address] Care Team Providers Care Numerical Control Operator Name Role Phone Ana Gillespie APRN Primary Care Provider [phone] Encounter Details Date Type Department Care Team (Late st Contact Info) Description 11/23/2022 Notes Only Radiology at [facility] [place] [address] Hang Cooper PA [facility] [place] [address] Social History Tobacco Use Types Packs/Day Years [...] mg by mouth daily. Blood Sugar Diagnostic (Turnip Truck II ULTRA TEST) Strip 1 each by Other [...] glucose meter kit. 1 each 0 Insulin [place], Disposable, (BD INSULIN PEN NEEDLE UF MINI) [...] IR G-Tube Placement 09/11/2022 Moustapha Hart MD [facility] INTERVENTIONL RAD IR SUTURE RELEASE 09/25/2022 IR Suture Release 09/25/2022 Yoselin Ghosh PA [facility] INTERVENTIONL RAD PERCUTANEOUS GASTROSTOMY N/A 09/11/2022 PERCUTANEOUS GASTROSTOMY performed by Aiden Flores MD at [facility] CATY PRO COLONOSCOPY, BIOPSY N/A 03/20/2016 COLONOSCOPY FLEXIBLE, WITH BX performed by David Dejesus MD at [facility] ENDOSCOPY PRO COLONOSCOPY, DIAGNOSTIC N/A 03/01/2020 COLONOSCOPY, DIAGNOSTIC performed by David Dejesus MD at [facility] ENDOSCOPY PRO ENDOSCOPIC US EXAM, ESOPH N/A 03/31/2022 UPPER EUS- ENDOSCOPIC ULTRASOUND performed by David Dejesus MD at [facility] ENDOSCOPY PRO UPPER GI ENDOSCOPY, BIOPSY N/A 04/03/2014 UPPER GASTROINTESTINAL ENDOSCOPY,WITH BIOPSY SINGLE OR MULTIPLE performed by David Dejesus MDat [facility] ENDOSCOPY PRO UPPER GI ENDOSCOPY, BIOPSY N/A 03/20/2016 EGD WITH BIOPSY performed by David Dejesus MD at [facility] ENDOSCOPY PRO UPPER GI ENDOSCOPY, BIOPSY N/A 11/22/2018 EGD WITH BIOPSY (WRVU 2.49) performed by David Dejesus MD at [facility] ENDOSCOPY PRO UPPER GI ENDOSCOPY, BIOPSY N/A 03/01/2020 UPPER GASTROINTESTINAL ENDOSCOPY,WITH BIOPSY SINGLE OR MULTIPLE (WRVU 2.49) performed by David Dejesus MD at [facility] ENDOSCOPY PRO UPPER GI ENDOSCOPY, BIOPSY N/A 09/23/2021 EGD WITH BIOPSY (WRVU 2.49) performed by David Dejesus MD at [facility] ENDOSCOPY PRO UPPER GI ENDOSCOPY, BIOPSY N/A 03/31/2022 EGD WITH BIOPSY (WRVU 2.49) performed by David Dejesus MD at [facility] ENDOSCOPY PRO UPPER GI ENDOSCOPY, BIOPSY N/A 07/03/2022 EGD WITH BIOPSY (WRVU 2.49) performed by David Dejesus MD at [facility] ENDOSCOPY PRO UPPER GI ENDOSCOPY, DIAGNOSTIC N/A 04/03/2014 EGD, UPPER GI ENDOSCOPY performed by David Dejesus MD at [facility] ENDOSCOPY PRO UPPER GI ENDOSCOPY, DIAGNOSTIC N/A 03/01/2020 EGD, UPPER GI ENDOSCOPY performed by David Dejesus MD at [facility] ENDOSCOPY PRO UPPER GI ENDOSCOPY, DIAGNOSTIC N/A 09/09/2022 EGD, UPPER GI ENDOSCOPY (WRVU 2.09) performed by Ayo Russ MD at [facility] MAIN OR Social history and habits: Social [...] PM EDT Office Visit Cardiology at [address] [phone] Milagros Hernandez MD [facility] [place] [address] Scheduled Procedures Name Priority Associated Diagnoses Date/Ti me EGD, UPPER GI ENDOSCOPY (WRV U 2.09) Peptic stricture of esophagus documented as of this encounter Visit Diagnoses Not on filedocumented in this encounter Care Teams Numerical Control Operator Relationship Specialty Start Date End Date Ana Gillespie APRN [address] [place] [address] PCP - General Family Medicine 02/03/19 documented as of this encounter
--- OUTSIDE RECORDS SUMMARY | 2024-02-05 12:46 | XMS_ITS | Encounter Summary ---
Author Organization [facility] Address [facility] [place] [address] Care Team Providers Care Bakery Associate Name Role Phone Ana Gillespie VAUGHN Primary Care Provider [phone] Reason for Visit * Reason Onset Date Comments Medication Refill 12/08/2022 Jennifer is out of her NPH. Dose has been higher than originally prescribed. Using 20 units at start of feed and now 6 hours into feed. Updated prescription today, Will plan to transfer prescription to PCP moving forward. Encounter Details Date Type Department Care Team (Late Contact Info) Description 12/08/2022 Telephone [place] [phone] Elsie Erickson APRN [facility] [place] [address] Medication Refill (Jennifer is out of her [...] PM EDT Office Visit Cardiology at [address] [phone] Milagros Hernandez MD [facility] [place] [address] Scheduled Procedures Name Priority Associated Diagnoses Date/Ti me EGD, UPPER GI ENDOSCOPY (WRV U 2.09) Peptic stricture of esophagus documented as of this encounter Visit Diagnoses Not on filedocumented in this encounter Care Teams Bakery Associate Relationship Specialty Start Date End Date Ana Gillespie APRN [address] [place] [address] PCP - General Family Medicine 02/03/19 documented as of this encounter
--- OUTSIDE RECORDS SUMMARY | 2024-02-05 12:46 | XMS_ITS | Encounter Summary ---
Author Organization [facility] [place] [address] Care Team Providers Care Pinsetter Mechanic Automatic Name Role Phone Ana Gillespie EXPLOSIVES HANDLER Primary Care Provider [phone] Encounter Details Date Type Department Care Team (Late st Contact Info) Description 03/01/2023 Telephone Gastroenterology at [facility] [place] [address] Parris Maravilla Social History Tobacco Use Types [...] - 03/01/2023 4:20 PM EDT Jennifer [place] [id number] Diagnosis/Indication: stricture dilation Please review patient chart [...] your procedure. Who will likely be your bung driver for the procedure? *Please Verify the [...] PM EDT Office Visit Cardiology at [address] [address] Milagros Hernandez MD [facility] [place] [address] Scheduled Procedures Name Priority Associated Diagnoses Date/Ti me EGD, UPPER GI ENDOSCOPY (WRV U 2.09) Peptic stricture of esophagus documented as of this encounter Visit Diagnoses Not on filedocumented in this encounter Care Teams Pinsetter Mechanic Automatic Relationship Specialty Start Date End Date Ana Gillespie APRN [address] [place] [address] PCP - General Family Medicine 02/03/19 documented as of this encounter
--- OUTSIDE RECORDS SUMMARY | 2024-02-05 12:46 | XMS_ITS | Encounter Summary ---
Author Organization [facility] [place] [address] Care Team Providers Care Aerospace Project Engineer Name Role Phone Ana Gillespie SUPPORT SERVICE TECH Primary Care Provider [phone] Reason for Visit * Reason Onset Date Comments Medication Refill 11/13/2022 Encounter Details Date Type Department Care Team (Late st Contact Info) Description 11/13/2022 [place] [address] Alyce Vogt RN Social History Tobacco Use [...] 4:00 PM EDT Office Visit Cardiology at [address] [phone] Milagros Hernandez MD [facility] [place] [address] Scheduled Procedures Name Priority Associated Diagnoses Date/Ti me EGD, UPPER GI ENDOSCOPY (WRV U 2.09) Peptic stricture of esophagus documented as of this encounter Visit Diagnoses Not on filedocumented in this encounter Care Teams Aerospace Project Engineer Relationship Specialty Start Date End Date Ana Gillespie APRN [address] [place] [address] PCP - General Family Medicine 02/03/19 documented as of this encounter
--- OUTSIDE RECORDS SUMMARY | 2024-02-05 12:46 | XMS_ITS | Encounter Summary ---
Author Organization [facility] Address [facility] [place] [address] Care Team Providers Care Filling Layer Up Name Role Phone Ana Gillespie APRN Primary Care Provider [phone] Encounter Details Date Type Department Care Team (Late st Contact Info) Description 11/23/2022 [place] [phone] Fannie Conde PA [facility] DR [place] [address] Social History Tobacco Use Types Packs/Day Years [...] 4:00 PM EDT Office Visit Cardiology at [address] [phone] Milagros Hernandez MD [facility] [address] Scheduled Procedures Name Priority Associated Diagnoses Date/Ti me EGD, UPPER GI ENDOSCOPY (WRV U 2.09) Peptic stricture of esophagus documented as of this encounter Visit Diagnoses Diagnosis Neuroleptic-induced parkinsonism Secondary Parkinsonism documented in this encounter Care Teams Filling Layer Up Relationship Specialty Start Date End Date Ana Gillespie APRN [address] [place] [address] PCP - General Family Medicine 02/03/19 documented as of this encounter
--- OUTSIDE RECORDS SUMMARY | 2024-02-05 12:46 | XMS_ITS | Encounter Summary ---
Author Organization [facility] [place] [place] [address] Care Team Providers Care Equal Opportunity Assistant Name Role Phone Ana Gillespie MOTION GRAPHICS DESIGNER Primary Care Provider [phone] Encounter Details Date Type Department Care Team (Late st Contact Info) Description 03/01/2023 Telephone [place] [address] Parris Maravilla Social History Tobacco [...] PM EDT Office Visit Cardiology at [address] [phone] Milagros Hernandez MD [facility] [place] [address] Scheduled Procedures Name Priority Associated Diagnoses Date/Ti me EGD, UPPER GI ENDOSCOPY (WRV U 2.09) Peptic stricture of esophagus documented as of this encounter Visit Diagnoses Not on filedocumented in this encounter Care Teams Equal Opportunity Assistant Relationship Specialty Start Date End Date Ana Gillespie APRN [address] [place] [address] PCP - General Family Medicine 02/03/19 documented as of this encounter
--- OUTSIDE RECORDS SUMMARY | 2024-02-05 12:46 | XMS_ITS | Encounter Summary ---
Author Organization [facility] Address [facility] [place] [address] Care Team Providers Care Transit Vehicle Inspector Name Role Phone Ana Gillespie VAUGHN Primary Care Provider [phone] Encounter Details Date Type Department Care Team (Late st Contact Info) Description 12/21/2022 Telephone [place] [phone] Jessica Beckman Social History Tobacco Use Types [...] PM EDT Office Visit Cardiology at [address] [phone] Milagros Hernandez MD [facility] [place] [address] Scheduled Procedures Name Priority Associated Diagnoses Date/Ti me EGD, UPPER GI ENDOSCOPY (WRV U 2.09) Peptic stricture of esophagus documented as of this encounter Visit Diagnoses Not on filedocumented in this encounter Care Teams Transit Vehicle Inspector Relationship Specialty Start Date End Date Ana Gillespie APRN [address] [place] [address] PCP - General Family Medicine 02/03/19 documented as of this encounter
--- OUTSIDE RECORDS SUMMARY | 2024-02-05 12:46 | XMS_ITS | Encounter Summary ---
Author Organization [facility] Address [facility] [place] [address] Care Team Providers Care Song Plugger Name Role Phone Ana Gillespie APRN Primary Care Provider [phone] Encounter Details Date Type Department Care Team (Late st Contact Info) Description 02/26/2023 2:00 PM EDT - 02/26/2023 2:30 PM EDT [place] [phone] David Dejesus MD [facility] [place] [address] EGD,WITH DILATION ESOPHAGUS WITH BALLOON,< 30 MM [...] the day after the procedure, use an gybs-hrk-izscvli spray to numb your throat. Sucking on [...] occurs, please contact your Doctor. Please call [phone] before 8pm Mon-Fri with problems, questions or concerns. If you call after 8pm or on weekends, call the Hospital at [phone] and ask to speak to the First Aid Officer operations administrative assistant and the hook and eye sewing machine operator will contact that person for you. When should you call for help? Call [phone] anytime you think you may need emergency [...] any problems. Where can you learn more? [facility] View your After Visit Summary and more online at [email or web address] If you would like to provide feedback about your hospital experience, please call the Office of Patient and Family Relations at . If you have received this After Visit Summary in error, please immediately return it in person to the department, or notify the [facility] Privacy Office by calling toll free at between the hours of 8AM and 5PM to arrange for our retrieval of the documents at no cost to you. Content Version: 12.2 ?? [id number] [employer]. Care instructions adapted under license by [facility]. If you have questions about a medical condition or this instruction, always ask your healthcare professional. [employer] disclaims any warranty or liability for your [...] meter kit. 1 each 0 12/14/2014 Insulin [place], Disposable, (BD INSULIN PEN NEEDLE UF MINI) [...] glucose meter kit. 1 each 0 Insulin [place], Disposable, (BD INSULIN PEN NEEDLE UF MINI) [...] 4:00 PM EDT Office Visit Cardiology at [address] [address] Milagros Hernandez MD [facility] [place] [address] Scheduled Procedures Name Priority Associated Diagnoses Date/Ti me EGD, UPPER GI ENDOSCOPY (WRV U 2.09) Peptic stricture of esophagus documented as of this encounter Procedures Procedure Name Priority Date/Time Associated Diagnosis Comments Up Gi Endoscopy, Ball Dil, 30Mm ([id number]) 02/26/2023 2:09 PM EDT Peptic stricture of esophagus POCT GLUCOSE Routine 02/26/2023 1:28 PM EDT documented in this encounter Results * POCT Glucose (02/26/2023 1:28 PM EDT) Glucose, POC 71 65 - 199 mg/dL [facility] Comment: Supplemental ranges: <140 mg/dL before meals <180 mg/dL all other times of the day Blood 02/26/2023 1:28 PM EDT 02/26/2023 1:28 PM EDT David Dejesus MD POINT OF CARE TEST ORDERABLES [facility] [place] [address] documented in this encounter Visit Diagnoses Diagnosis [...] RN) documented in this encounter Care Teams Song Plugger Relationship Specialty Start Date End Date Ana Gillespie APRN [address] [place] [address] PCP - General Family Medicine 02/03/19 documented as of this encounter
--- OUTSIDE RECORDS SUMMARY | 2024-02-05 12:46 | XMS_ITS | Encounter Summary ---
Author Organization [facility] [place] [address] Care Team Providers Care Securities Teller Name Role Phone Ana Gillespie VUAGHN Primary Care Provider [phone] Encounter Details Date Type Department Care Team (Late st Contact Info) Description 01/27/2023 Telephone [place] [phone] Parris Maravilla Social History Tobacco Use Types [...] 4:00 PM EDT Office Visit Cardiology at [address] [phone] Milagros Hernandez MD [facility] [place] [address] Scheduled Procedures Name Priority Associated Diagnoses Date/Ti me EGD, UPPER GI ENDOSCOPY (WRV U 2.09) Peptic stricture of esophagus documented as of this encounter Visit Diagnoses Not on filedocumented in this encounter Care Teams Securities Teller Relationship Specialty Start Date End Date Ana Gillespie APRN [address] [place] [address] PCP - General Family Medicine 02/03/19 documented as of this encounter
--- OUTSIDE RECORDS SUMMARY | 2024-02-05 12:46 | XMS_ITS | Encounter Summary ---
Author Organization [facility] [place] [address] Care Team Providers Care Transfer Driver Name Role Phone Ana Gillespie APRN Primary Care Provider [phone] Encounter Details Date Type Department Care Team [...] PM EDT Office Visit Cardiology at [address] [address] [facility] [place] [address] Scheduled Procedures Name Priority Associated Diagnoses Date/Ti me EGD, UPPER GI ENDOSCOPY (WRV U 2.09) Peptic stricture of esophagus documented as of this encounter Visit Diagnoses Not on filedocumented in this encounter Care Teams Transfer Driver Relationship Specialty Start Date End Date Ana Gillespie APRN [address] [place] [address] PCP - General Family Medicine 02/03/19 documented as of this encounter
--- OUTSIDE RECORDS SUMMARY | 2024-02-05 12:46 | XMS_ITS | Encounter Summary ---
Author Organization [facility] [place] [address] Care Team Providers Care Power And Recovery Supervisor Name Role Phone Ana Gillespie APRN Primary Care Provider [phone] Encounter Details Date Type Department Care Team (Late st Contact Info) Description 01/12/2023 Orders [place] [phone] David Dejesus MD [facility] [place] [address] Peptic stricture of esophagus Social History Tobacco [...] PM EDT Office Visit Cardiology at [address] [phone] Milagros Hernandez MD [facility] [place] [address] Scheduled Procedures Name Priority Associated Diagnoses Date/Ti me EGD, UPPER GI ENDOSCOPY (WRV U 2.09) Peptic stricture of esophagus documented as of this encounter Visit Diagnoses Diagnosis Peptic stricture of esophagus Stricture and stenosis of esophagus documented in this encounter Care Teams Power And Recovery Supervisor Relationship Specialty Start Date End Date Ana Gillespie APRN [address] [place] [address] PCP - General Family Medicine 02/03/19 documented as of this encounter
--- OUTSIDE RECORDS SUMMARY | 2024-02-05 12:46 | XMS_ITS | Encounter Summary ---
Author Organization [facility] [place] [address] Care Team Providers Care Nuclear Station Operator Name Role Phone Ana Gillespie VAUGHN Primary Care Provider [phone] Encounter Details Date Type Department Care Team (Late st Contact Info) Description 12/21/2022 Telephone [place] [phone] Jessica Beckman Social History Tobacco Use Types [...] 12/21/2022 8:07 AM EDT Called pt to [facility] MAC EGD 12/24 at 11:30am per Dr Dejesus-had to [facility] documented in this encounter Plan of Treatment Upcoming Encounters Date Type Department Care Team (Late st Contact Info) Description 03/10/2024 4:00 PM EDT Office Visit Cardiology at [address] [phone] Milagros Hernandez MD [facility] [place] [address] Scheduled Procedures Name Priority Associated Diagnoses Date/Ti me EGD, UPPER GI ENDOSCOPY (WRV U 2.09) Peptic stricture of esophagus documented as of this encounter Visit Diagnoses Not on filedocumented in this encounter Care Teams Nuclear Station Operator Relationship Specialty Start Date End Date Ana Gillespie APRN [address] [place] [address] PCP - General Family Medicine 02/03/19 documented as of this encounter
--- OUTSIDE RECORDS SUMMARY | 2024-02-05 12:46 | XMS_ITS | Encounter Summary ---
Author Organization [facility] Address [facility] [place] [address] Care Team Providers Care Morning Caregiver Name Role Phone Ana Gillespie PLASTIC TECHNICIAN Primary Care Provider [phone] Encounter Details Date Type Department Care Team (Late st Contact Info) Description 11/18/2022 Orders [place] [phone] Dixie Tadeo MD [facility] [place] [address] Social History Tobacco Use Types Packs/Day Years [...] PM EDT Office Visit Cardiology at [address] [phone] Milagors Hernandez MD [facility] [place] [address] Scheduled Procedures Name Priority Associated Diagnoses Date/Ti me EGD, UPPER GI ENDOSCOPY (WRV U 2.09) Peptic stricture of esophagus documented as of this encounter Visit Diagnoses Not on filedocumented in this encounter Care Teams Morning Caregiver Relationship Specialty Start Date End Date Ana Gillespie APRN [address] [place] [address] PCP - General Family Medicine 02/03/19 documented as of this encounter
--- OUTSIDE RECORDS SUMMARY | 2024-02-05 12:46 | XMS_ITS | Encounter Summary ---
Author Organization [facility] [place] [address] Care Team Providers Care Cook Vegetable Name Role Phone Ana Gillespie APRN Primary Care Provider [phone] Encounter Details Date Type Department Care Team (Late st Contact Info) Description 12/08/2022 Telephone [place] [phone] Alyce Vogt RN Social History Tobacco Use [...] 12/08/2022 1:08 PM EDT Copied from CRM #[id number]. Topic: Specialty Dept CRMs - Generic Call [...] PM EDT Office Visit Cardiology at [address] [phone] Milagros Hernandez MD [facility] [place] [address] Scheduled Procedures Name Priority Associated Diagnoses Date/Ti me EGD, UPPER GI ENDOSCOPY (WRV U 2.09) Peptic stricture of esophagus documented as of this encounter Visit Diagnoses Not on filedocumented in this encounter Care Teams Cook Vegetable Relationship Specialty Start Date End Date Ana Gillespie APRN [address] [place] [address] PCP - General Family Medicine 02/03/19 documented as of this encounter
--- OUTSIDE RECORDS SUMMARY | 2024-02-05 12:46 | XMS_ITS | Encounter Summary ---
Author Organization [facility] [place] [address] Care Team Providers Care Occupancy Specialist Name Role Phone Ana Gillespie OUTSIDE RIGGER Primary Care Provider [phone] Encounter Details Date Type Department Care Team (Late st Contact Info) Description 12/10/2022 Telephone [place] [phone] Jessica Beckman Social History Tobacco [...] Office Visit Cardiology at [address] [phone] Milagros Hernandez MD [facility] [place] [address] Scheduled Procedures Name Priority Associated Diagnoses Date/Ti me EGD, UPPER GI ENDOSCOPY (WRV U 2.09) Peptic stricture of esophagus documented as of this encounter Visit Diagnoses Not on filedocumented in this encounter Care Teams Occupancy Specialist Relationship Specialty Start Date End Date Ana Gillespie APRN [address] [place] [address] PCP - General Family Medicine 02/03/19 documented as of this encounter
--- OUTSIDE RECORDS SUMMARY | 2024-02-05 12:46 | XMS_ITS | Encounter Summary ---
Author Organization [facility] [place] [address] Care Team Providers Care Industrial Plant Custodian Name Role Phone Ana Gillespie VAUGHN Primary Care Provider [phone] Encounter Details Date Type Department Care Team (Late st Contact Info) Description 11/13/2022 Telephone [place] [address] Alyce Vogt RN Social History [...] PM EDT Office Visit Cardiology at [address] [phone] Milagros Hernandez MD [facility] [place] [address] Scheduled Procedures Name Priority Associated Diagnoses Date/Ti me EGD, UPPER GI ENDOSCOPY (WRV U 2.09) Peptic stricture of esophagus documented as of this encounter Visit Diagnoses Not on filedocumented in this encounter Care Teams Industrial Plant Custodian Relationship Specialty Start Date End Date Ana Gillespie APRN [address] [place] [address] PCP - General Family Medicine 02/03/19 documented as of this encounter
--- OUTSIDE RECORDS SUMMARY | 2024-02-05 12:46 | XMS_ITS | Encounter Summary ---
Author Organization [facility] Address [facility] [place] [address] Care Team Providers Care High School Social Studies Teacher Name Role Phone Ana Gillespie APRN Primary Care Provider [phone] Encounter Details Date Type Department Care Team (Late st Contact Info) Description 01/12/2023 8:06 AM EDT Anesthesia [place] [address] Bogdan Song MD [facility] [place] [address] Cristine Gomez CRNA [facility] [place] [address] Anesthesia Record Procedure Summary Procedure Name Responsible [...] dorsal arch vein (top of foot), left; dwgu-lil-eohruz catheter system; Anatomical Landmarks; US Not Used; [...] Procedure Summary Date: 01/12/23 Room / Location: [facility] ENDO 2 / [facility] ENDOSCOPY Anesthesia Start: 805 Anesthesia Stop: 919 Procedure: EGD,WITH DILATION ESOPHAGUS WITH BALLOON,< 30 MM (WRVU 2.67) (Trunk) Diagnosis: Peptic stricture of esophagus (peptic stricture - needs dilation under anestheszi in 10-14 days) Surgeons: David Dejesus MD Responsible Provider: Bogdan Song MD Anesthesia Type: MAC ASA Status: 2 All Anesthesia Providers: Anesthesiologist: Bogdan Song MD DATA SUPPORT SPECIALIST: Chiquis Burnham CRNA Student Nurse Warehouse Puller: Irwin Novak Vitals Value Taken Time BP 113/54 01/12/23 0955 Temp Pulse Resp 17 01/12/23 0955 SpO2 97 % 01/12/23 0955 Pain Level 0 01/12/23 0940 Patient Location: PACU/[facility] Level of Consciousness: Awake and Alert Pain [...] y.o. female. Procedure(s): E[facility], [facility] Patient Active Problem List [...] IR G-Tube Check/Change 11/27/2022 Hang Cooper PA [facility] INTERVENTIONL RAD ??? IR G-TUBE PLACEMENT 09/11/2022 IR G-Tube Placement 09/11/2022 Moustapha Hart MD [facility] INTERVENTIONL RAD ??? IR SUTURE RELEASE 09/25/2022 IR Suture Release 09/25/2022 Yoselin Ghosh PA [facility] INTERVENTIONL RAD ??? PERCUTANEOUS GASTROSTOMY N/A 09/11/2022 PERCUTANEOUS GASTROSTOMY performed by Aiden Flores MD at [facility] CATY ??? PRO COLONOSCOPY, BIOPSY N/A 03/20/2016 COLONOSCOPY FLEXIBLE, WITH BX performed by David Dejesus MD at [facility] ENDOSCOPY ??? PRO COLONOSCOPY, DIAGNOSTIC N/A 03/01/2020 COLONOSCOPY, DIAGNOSTIC performed by David Dejesus MD at [facility] ENDOSCOPY ??? PRO ENDOSCOPIC US EXAM, ESOPH N/A 03/31/2022 UPPER EUS- ENDOSCOPIC ULTRASOUND performed by David Dejesus MD at [facility] ENDOSCOPY ??? PRO UP GI ENDOSCOPY, BALL DIL, 30MM N/A 12/24/2022 EGD,WITH DILATION ESOPHAGUS WITH BALLOON,< 30 MM (WRVU 2.67) performed by David Dejesus [facility] ENDOSCOPY ??? PRO UPPER GI ENDOSCOPY, BIOPSY N/A 04/03/2014 UPPER GASTROINTESTINAL ENDOSCOPY,WITH BIOPSY SINGLE OR MULTIPLE performed by David Dejesus [facility] ENDOSCOPY ??? PRO UPPER GI ENDOSCOPY, BIOPSY N/A 03/20/2016 EGD WITH BIOPSY performed by David Dejesus MD at [facility] ENDOSCOPY ??? PRO UPPER GI ENDOSCOPY, BIOPSY N/A 11/22/2018 EGD WITH BIOPSY (WRVU 2.49) performed by David Dejesus MD at [facility] ENDOSCOPY ??? PRO UPPER GI ENDOSCOPY, BIOPSY N/A 03/01/2020 UPPER GASTROINTESTINAL ENDOSCOPY,WITH BIOPSY SINGLE OR MULTIPLE (WRVU 2.49) performed by David Dejesus MD at [facility] ENDOSCOPY ??? PRO UPPER GI ENDOSCOPY, BIOPSY N/A 09/23/2021 EGD WITH BIOPSY (WRVU 2.49) performed by David Dejesus MD at [facility] ENDOSCOPY ??? PRO UPPER GI ENDOSCOPY, BIOPSY N/A 03/31/2022 EGD WITH BIOPSY (WRVU 2.49) performed by David Dejesus MD at [facility] ENDOSCOPY ??? PRO UPPER GI ENDOSCOPY, BIOPSY N/A 07/03/2022 EGD WITH BIOPSY (WRVU 2.49) performed by David Dejesus MD at [facility] ENDOSCOPY ??? PRO UPPER GI ENDOSCOPY, DIAGNOSTIC N/A 04/03/2014 EGD, UPPER GI ENDOSCOPY performed by David Dejesus MD at [facility] ENDOSCOPY ??? PRO UPPER GI ENDOSCOPY, DIAGNOSTIC N/A 03/01/2020 EGD, UPPER GI ENDOSCOPY performed by David Dejesus MD at [facility] ENDOSCOPY ??? PRO UPPER GI ENDOSCOPY, DIAGNOSTIC N/A 09/09/2022 EGD, UPPER GI ENDOSCOPY (WRVU 2.09) performed by Ayo Russ MD at [facility] MAIN OR Social History Tobacco [...] risks discussed with patient. Plan discussed with DATA SUPPORT SPECIALIST and attending. Anesthesia Screening documented in this encounter Plan of Treatment Upcoming Encounters Date Type Department Care Team (Late st Contact Info) Description 03/10/2024 4:00 PM EDT Office Visit Cardiology at [address] [address] Milagros Hernandez MD [facility] [place] [address] Scheduled Procedures Name Priority Associated Diagnoses Date/Ti [...] PRN, Starting on Wed01/12/23 at 0812, Until Wed01/12/23 at 1145, Anesthesia Intra-op, Routine Given 01/12/2023 8:19 AM EDT 10 mg Given 01/12/2023 8:12 AM EDT 5 mg lactated ringers infusion 100 mL/hr, Intravenous, CONTINUOUS, Starting on Wed01/12/23 at 0745, Until 01/12/23 at 1008, Endoscopy (Day of Procedure) Restarted 01/12/2023 9:15 AM EDT New Bag 01/12/2023 7:45 AM EDT 100 mL/hr 100 mL/hr lidocaine (pf) (Xylocaine) (20 mg/mL) 2% injection syringe Intravenous, PRN, Starting on Wed01/12/23 at 0811, Until 01/12/23 at 1145, Anesthesia Intra-op, Routine Given 01/12/2023 8:11 AM EDT 70 mg PHENYLephrine in NS (PF) (ROBY-SYNEPHRINE) 0.8 mg/10 mL (80 mcg/mL) multi-dose injection Syringe Intravenous, PRN, Starting on 01/12/23 at 0835, Until 01/12/23 at 1145, Anesthesia Intra-op, Routine Given 01/12/2023 9:13 AM EDT 80 mcg Given 01/12/2023 9:07 AM EDT 80 mcg Given 01/12/2023 9:02 AM EDT 160 mcg propofoL (Diprivan) (10 mg/mL) infusion Intravenous, CONTINUOUS PRN, Starting on e 01/12/23 at 0810, Until Wed01/12/23 at 1145, Anesthesia Intra-op, Routine Rate/Dose Change 01/12/2023 8:48 AM EDT 225 mcg/kg/min 88.155 mL/hr Rate/Dose Change 01/12/2023 8:30 AM EDT 150 mcg/kg/min 58. 77 mL/hr New Bag 01/12/2023 8:10 AM EDT 250 mcg/kg/min 97.95 mL/ hr propofoL (Diprivan) 10 mg/mL bolus injection (Anesthesia) Intravenous, PRN, Starting on e 01/12/23 at 0810, Until Wed01/12/23 at 1145, Anesthesia Intra-op Given 01/12/2023 9:02 AM EDT 30 mg Given 01/12/2023 8:54 AM EDT 30 mg Given 01/12/2023 8:48 AM EDT 30 mg succinylcholine (Anectine;Quelicin) (20 mg/mL) injection Intravenous, PRN, Starting on Wed01/12/23 at 0829, Until 01/12/23 at 1145, Anesthesia Intra-op, Routine Given 01/12/2023 8:29 AM EDT 100 mg documented in this encounter Care Teams High School Social Studies Teacher Relationship Specialty Start Date End Date Ana Gillespie APRN [address] [place] [address] PCP - General Family Medicine 02/03/19 documented as of this encounter
--- OUTSIDE RECORDS SUMMARY | 2024-02-05 12:46 | XMS_ITS | Encounter Summary ---
[place] [address] Care Team Providers Care Senior Architectural Designer Name Role Phone Ana Gillespie APRN Primary Care Provider Reason for Referral * Consultation (Routine) - Closed Specialty Diagnoses / Procedures Referred By Esperanza t Referred To Contact Diagnoses Gastrojejunostomy tube status Ana Gillespie APRN [address] [place] [address] [facility] [address] [place] [phone] Referral ID Status Reason Start Date Expiration Date V isits Requested Visits Authorized [id number] Closed Continuity of Care PCP Updated and/or Approved 11/17/2022 11/17/2023 12 12 Encounter Details Date Type Department Care Team (Latest Contact Info) Description 11/17/2022 Transcribe Orders eDH Incoming Referrals [phone] Ana Gillespie APRN [address] [place], [place] [id number] Gastrojejunostomy tube status Social History Tobacco Use [...] 4:00 PM EDT Office Visit Cardiology at [address] [phone] Milagros Hernandez MD [facility] [place] [address] Scheduled Procedures Name Priority Associated Diagnoses Date/Ti me EGD, UPPER GI ENDOSCOPY (WRV U 2.09) Peptic stricture of esophagus Scheduled Referrals Name Type Priority Associated Diagnoses Orde r Schedule Referral to Nutrition Services Outpatient Referral Routine Gastrojejunostomy tube status Ordered: 11/17/2022 documented as of this encounter Visit Diagnoses Diagnosis Gastrojejunostomy tube status Intestinal bypass or anastomosis status documented in this encounter Care Teams Senior Architectural Designer Relationship Specialty Start Date End Date Ana Gillespie APRN [address] [place] [address] PCP - General Family Medicine 02/03/19 documented as of this encounter
--- OUTSIDE RECORDS SUMMARY | 2024-02-05 12:46 | XMS_ITS | Encounter Summary ---
Author Organization [facility] Address [facility] [place] [address] Care Team Providers Care Cosmetics Counter Manager Name Role Phone Ana Gillespie VAUGHN Primary Care Provider [phone] Encounter Details Date Type Department Care Team (Late st Contact Info) Description 12/24/2022 12:00 PM EDT - 12/24/2022 12:30 PM EDT [place] [phone] David Dejesus MD [facility] [place] [address] EGD,WITH DILATION ESOPHAGUS WITH BALLOON,< 30 MM [...] 180 tablet 3 10/20/2021 Blood Sugar Diagnostic (Autobase ULTRA TEST) StripIndications:Typ e 2 diabetes mellitus, [...] mellitus type 2, uncontrolled 1 Device by [facility].(Non-Drug; Combo Route) route 3 [...] 36.2 ??C (97.2 ??F), temperature source Tympanic, NpK192 %. GEN: Alert, cooperative. Pleasant. 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 Patient Name: Jennifer Irving ? Date of : 1960 ? Age: 62 ? Order #: [id number] ? Instrument Name: [id number] ? Procedure: ? Upper GI endoscopy Indications: [...] EDT Unknown GENERAL SURGICAL ORD ERABLES PROVATION * POCT Glucose (12/24/2022 11:02 AM EDT) Glucose, POC 123 65 - 199 mg/dL [facility] Comment: Supplemental ranges: <140 mg/dL before meals <180 mg/dL all other times of the day Blood 12/24/2022 11:0 2 AM EDT 12/24/2022 11:02 AM EDT David Dejesus MD POINT OF CARE TEST ORDERABLES Performing Organization Address City/[facility] Co de Phone Number [facility] [place] [address] documented in this encounter Visit Diagnoses Diagnosis [...] CRNA) documented in this encounter Care Teams Cosmetics Counter Manager Relationship Specialty Start Date End Date Ana Gillespie APRN [address] [place] [address] PCP - General Family Medicine 02/03/19 documented as of this encounter
--- OUTSIDE RECORDS SUMMARY | 2024-02-05 12:46 | XMS_ITS | Encounter Summary ---
Author Organization [facility] Address [facility] [place] [address] Care Team Providers Care Air Traffic Instructor Name Role Phone Ana Gillespie VAUGHN Primary Care Provider [phone] Reason for Visit * Diagnostic Test (Routine) - Closed Specialty Diagnoses / Procedures Referred By Esperanza rodríguez Referred To Contact Radiology Diagnoses Neuroleptic-induced parkinsonism Procedures IR G-Tube Check/Change IR GJ-Tube Check/Change Fannie Conde PA [facility] [place]VENT[place] [address] [facility] [place] [address] Referral ID Status Reason Start Date Expiration Date V isits Requested Visits Authorized [id number] Closed Specialty Service Requested 11/23/2022 05/26/2024 1 1 Encounter Details Date Type Department Care Team (Latest Contact Info) Description 11/27/2022 1:04 PM EDT - 11/27/2022 11:59 PM EDT Hospital [place] [address] Azeem Alarcon MD [facility] DIAGNOST[place] [address] Neuroleptic-induced parkinsonism Discharge Disposition: Home Social History [...] meter kit. 1 each 0 12/14/2014 Insulin [place], Disposable, (BD INSULIN PEN NEEDLE UF MINI) [...] of : 1960 AGE: 62 y.o. Address: [address] [address] (home) Mobile: Telephone Information: Referring Provider: Fannie Conde REASON FOR VISIT: Order Questions Answers Where will study be performed? [facility] Radiology [120] Is the patient [...] of : 1960 AGE: 62 y.o. Address: [address] [address] (home) Mobile: Telephone Information: Referring Provider: Fannie Conde REASON FOR VISIT: Order Questions Answers Where will study be performed? [facility] Radiology [120] Is the patient [...] PM EDT Office Visit Cardiology at [address] [address] Milagros Hernandez MD [facility] [place] [address] Scheduled Procedures Name Priority Associated Diagnoses Date/Ti [...] monitored. Technique: The patient was positioned supine. Technical Sourcing Recruiter imaging was performed with air injection through [...] Gavin Carrillo MD 11/27/2022 Azeem Alarcon MD IMG IR ORDERABLES * POCT Glucose (11/27/2022 1:25 PM EDT) Glucose, POC 128 65 - 199 mg/dL [facility] Comment: Supplemental ranges: <140 mg/dL before meals <180 mg/dL all other times of the day Blood 11/27/2022 1:25 PM EDT 11/27/2022 1:25 PM EDT Azeem Alarcon MD POINT OF CARE TEST O RDERABLES [facility] [place] [address] documented in this encounter Visit Diagnoses Diagnosis Neuroleptic-induced parkinsonism Secondary Parkinsonism documented in this encounter Care Teams Air Traffic Instructor Relationship Specialty Start Date End Date Ana Gillespie APRN [address] [place] [address] PCP - General Family Medicine 02/03/19 documented as of this encounter
--- OUTSIDE RECORDS SUMMARY | 2024-02-05 12:46 | XMS_ITS | Encounter Summary ---
Author Organization [facility] [place] [address] Care Team Providers Care Associate Designer Name Role Phone Ana Gillespie SUPPLIER QUALITY ENGINEER Primary Care Provider [phone] Encounter Details Date Type Department Care Team (Late st Contact Info) Description 12/25/2022 Telephone [place] [address] Parris Maravilla Social History Tobacco [...] PM EDT Office Visit Cardiology at [address] [phone] Milagros Hernandez MD [facility] [address] Scheduled Procedures Name Priority Associated Diagnoses Date/Ti me EGD, UPPER GI ENDOSCOPY (WRV U 2.09) Peptic stricture of esophagus documented as of this encounter Visit Diagnoses Not on filedocumented in this encounter Care Teams Associate Designer Relationship Specialty Start Date End Date Ana Gillespie APRN [address] [place] [address] PCP - General Family Medicine 02/03/19 documented as of this encounter
--- OUTSIDE RECORDS SUMMARY | 2024-02-05 12:46 | XMS_ITS | Encounter Summary ---
Author Organization [facility] Address [facility] [place] [address] Care Team Providers Care Product Operations Associate Name Role Phone Ana Gillespie APRN Primary Care Provider [phone] Encounter Details Date Type Department Care Team (Late st Contact Info) Description 02/26/2023 2:07 PM EDT Anesthesia [place] [phone] Rio Aceves MD [facility] [place] [address] Adrianna Barron MD [facility] [place] [address] Anesthesia Record Procedure Summary Procedure Name Responsible [...] Procedure Summary Date: 02/26/23 Room / Location: [facility] ENDO 2 / [facility] ENDOSCOPY Anesthesia Start: 1407 Anesthesia Stop: 1439 Procedure: EGD,WITH DILATION ESOPHAGUS WITH BALLOON,< 30 MM (WRVU 2.67) (Trunk) Diagnosis: Peptic stricture of esophagus (peptic stricture dilation - within two weeks) Surgeons: David Dejesus MD Responsible Provider: Rio Aceves MD Anesthesia Type: MAC ASA Status: 3 All Anesthesia Providers: Anesthesiologist: Rio Aceves MD HOSE FINISHER: Tapan Simpson CRNA Vitals Value Taken Time BP 115/50 02/26/23 1503 Temp Pulse Resp 16 02/26/23 1435 SpO2 95 % 02/26/23 1505 Pain Level 0 02/26/23 1435 Vitals shown include unfiled device data. Patient Location: PACU/[facility] Level of Consciousness: Awake and Alert [...] IR G-Tube Check/Change 11/27/2022 Hang Cooper PA [facility] INTERVENTIONL RAD ??? IR G-TUBE PLACEMENT 09/11/2022 IR G-Tube Placement 09/11/2022 Moustapha Hart MD [facility] INTERVENTIONL RAD ??? IR SUTURE RELEASE 09/25/2022 IR Suture Release 09/25/2022 Yoselin Ghosh PA [facility] INTERVENTIONL RAD ??? PERCUTANEOUS GASTROSTOMY N/A 09/11/2022 PERCUTANEOUS GASTROSTOMY performed by Aiden Flores MD at [facility] CATY ??? PRO COLONOSCOPY, BIOPSY N/A 03/20/2016 COLONOSCOPY FLEXIBLE, WITH BX performed by David Deejsus MD at [facility] ENDOSCOPY ??? PRO COLONOSCOPY, DIAGNOSTIC N/A 03/01/2020 COLONOSCOPY, DIAGNOSTIC performed by David Dejesus MD at [facility] ENDOSCOPY ??? PRO ENDOSCOPIC US EXAM, ESOPH N/A 03/31/2022 UPPER EUS- ENDOSCOPIC ULTRASOUND performed by David Dejesus MD at [facility] ENDOSCOPY ??? PRO UP GI ENDOSCOPY, BALL DIL, 30MM N/A 12/24/2022 EGD,WITH DILATION ESOPHAGUS WITH BALLOON,< 30 MM (WRVU 2.67) performed by David Dejesus MDat [facility] ENDOSCOPY ??? PRO UP GI ENDOSCOPY, BALL DIL, 30MM N/A 01/12/2023 EGD,WITH DILATION ESOPHAGUS WITH BALLOON,< 30 MM (WRVU 2.67) [facility]?? PRO UPPER GI ENDOSCOPY, BIOPSY N/A 04/03/2014 UPPER GASTROINTESTINAL ENDOSCOPY,WITH BIOPSY SINGLE OR MULTIPLE performed by David Dejesus MDat [facility] ENDOSCOPY ??? PRO UPPER GI ENDOSCOPY, BIOPSY N/A 03/20/2016 EGD WITH BIOPSY performed by David Dejesus MD at [facility] ENDOSCOPY ??? PRO UPPER GI ENDOSCOPY, BIOPSY N/A 11/22/2018 EGD WITH BIOPSY (WRVU 2.49) performed by David Dejesus MD at [facility] ENDOSCOPY ??? PRO UPPER GI ENDOSCOPY, BIOPSY N/A 03/01/2020 UPPER GASTROINTESTINAL ENDOSCOPY,WITH BIOPSY SINGLE OR MULTIPLE (WRVU 2.49) performed by David Dejesus MD at [facility] ENDOSCOPY ??? PRO UPPER GI ENDOSCOPY, BIOPSY N/A 09/23/2021 EGD WITH BIOPSY (WRVU 2.49) performed by David Dejesus MD at [facility] ENDOSCOPY ??? PRO UPPER GI ENDOSCOPY, BIOPSY N/A 03/31/2022 EGD WITH BIOPSY (WRVU 2.49) performed by David Dejesus MD at [facility] ENDOSCOPY ??? PRO UPPER GI ENDOSCOPY, BIOPSY N/A 07/03/2022 EGD WITH BIOPSY (WRVU 2.49) performed by David Dejesus MD at [facility] ENDOSCOPY ??? PRO UPPER GI ENDOSCOPY, DIAGNOSTIC N/A 04/03/2014 EGD, UPPER GI ENDOSCOPY performed by David Dejesus MD at [facility] ENDOSCOPY ??? PRO UPPER GI ENDOSCOPY, DIAGNOSTIC N/A 03/01/2020 EGD, UPPER GI ENDOSCOPY performed by David Dejesus MD at [facility] ENDOSCOPY ??? PRO UPPER GI ENDOSCOPY, DIAGNOSTIC N/A 09/09/2022 EGD, UPPER GI ENDOSCOPY (WRVU 2.09) performed by Ayo Russ MD at [facility] MAIN OR Social History Tobacco Use [...] with patient and spouse. Plan discussed with HOSE FINISHER and attending. Anesthesia Screening documented in this encounter Plan of Treatment Upcoming Encounters Date Type Department Care Team (Late st Contact Info) Description 03/10/2024 4:00 PM EDT Office Visit Cardiology at [address] [address] Milagros Hernandez MD [facility] [place] [address] Scheduled Procedures Name Priority Associated Diagnoses Date/Ti [...] hr documented in this encounter Care Teams Product Operations Associate Relationship Specialty Start Date End Date Ana Gillespie APRN [address] [place] [address] PCP - General Family Medicine 02/03/19 documented as of this encounter
--- OUTSIDE RECORDS SUMMARY | 2024-02-05 12:46 | XMS_ITS | Encounter Summary ---
Author Organization [facility] [place] [address] Care Team Providers Care Transit Mix Operator Name Role Phone Ana Gillespie APRN Primary Care Provider Encounter Details Date Type Department Care Team (Late Contact Info) Description 12/24/2022 Orders [place] [phone] David Dejesus MD [facility] [place] [address] Peptic stricture of esophagus Social History Tobacco [...] 4:00 PM EDT Office Visit Cardiology at [address] [phone] Milagros Hernandez MD [facility] [place] [address] Scheduled Orders Name Type Priority Associated Diagnoses [...] esophagus documented in this encounter Care Teams Transit Mix Operator Relationship Specialty Start Date End Date Ana Gillespie APRN [address] [place] [address] PCP - General Family Medicine 02/03/19 documented as of this encounter
--- OUTSIDE RECORDS SUMMARY | 2024-02-05 12:46 | XMS_ITS | Encounter Summary ---
Author Organization [facility] Address [facility] [place] [address] Care Team Providers Care Hydropress Operator Name Role Phone Ana Gillespie VAUGHN Primary Care Provider [phone] Encounter Details Date Type Department Care Team (Late st Contact Info) Description 01/12/2023 7:30 AM EDT - 01/12/2023 8:00 AM EDT Surgery [place] [phone] David Dejesus MD [facility] [place] [address] EGD,WITH DILATION ESOPHAGUS WITH BALLOON,< 30 MM [...] the day after the procedure, use an vglu-rcg-evopvqq spray to numb your throat. Sucking on [...] occurs, please contact your Doctor. Please call [phone] before 8pm Mon-Fri with problems, questions or concerns. If you call after 8pm or on weekends, call the Hospital at [phone] and ask to speak to the Credit Risk Modeler contact representative and the epitaxial reactor operator will contact that person for you. When should you call for help? Call [phone] anytime you think you may need emergency [...] any problems. Where can you learn more? [facility] View your After Visit Summary and more online at [email or web address] If you would like to provide feedback about your hospital experience, please call the Office of Patient and Family Relations at . If you have received this After Visit Summary in error, please immediately return it in person to the department, or notify the [facility] Privacy Office by calling toll free at between the hours of 8AM and 5PM to arrange for our retrieval of the documents at no cost to you. Content Version: 12.2 ?? 8685-9403 [employer]. Care instructions adapted under license by [facility]. If you have questions about a medical condition or this instruction, always ask your healthcare professional. [employer], [employer] disclaims any warranty or liability for your [...] strips. 300 each 3 12/14/2014 Blood-Glucose Meter (DigitalTangibleTOUCH ULTRA2) KitIndications:Type 2 diabetes mellitus, uncontrolled by Other route. 1 = one blood glucose meter kit. 1 each 0 12/14/2014 Insulin [place], Disposable, (BD INSULIN PEN NEEDLE UF MINI) [...] 4:00 PM EDT Office Visit Cardiology at [address] [address] Milagros Hernandez MD [facility] [place] [address] Scheduled Procedures Name Priority Associated Diagnoses Date/Ti me EGD, UPPER GI ENDOSCOPY (WRV U 2.09) Peptic stricture of esophagus documented as of this encounter Procedures Procedure Name Priority Date/Time Associated Diagnosis Comments Up Gi Endoscopy, Ball Dil, 30Mm ([id number]) 01/12/2023 8:06 AM EDT Peptic stricture of esophagus POCT GLUCOSE Routine 01/12/2023 7:31 AM EDT documented in this encounter Results * POCT Glucose (01/12/2023 7:31 AM EDT) Glucose, POC 115 65 - 199 mg/dL [facility] Comment: Supplemental ranges: <140 mg/dL before meals <180 mg/dL all other times of the day Blood 01/12/2023 7:31 AM EDT 01/12/2023 7:31 AM EDT David Dejesus MD POINT OF CARE TEST ORDERABLES [facility] [place] [address] documented in this encounter Visit Diagnoses Diagnosis [...] CRNA) documented in this encounter Care Teams Hydropress Operator Relationship Specialty Start Date End Date Ana Gillespie APRN [address] [place] [address] PCP - General Family Medicine 02/03/19 documented as of this encounter
--- OUTSIDE RECORDS SUMMARY | 2024-02-05 12:46 | XMS_ITS | Encounter Summary ---
Author Organization [facility] [place] [address] Care Team Providers Care Administrative Office Specialist Name Role Phone Ana Gillespie APRN Primary Care Provider [phone] Encounter Details Date Type Department Care Team [...] PM EDT Office Visit Cardiology at [address] [address] Milagros Hernandez MD [facility] [place] [address] Scheduled Procedures Name Priority Associated Diagnoses Date/Ti me EGD, UPPER GI ENDOSCOPY (WRV U 2.09) Peptic stricture of esophagus documented as of this encounter Visit Diagnoses Not on filedocumented in this encounter Care Teams Administrative Office Specialist Relationship Specialty Start Date End Date Ana Gillespie APRN [address] [place] [address] PCP - General Family Medicine 02/03/19 documented as of this encounter
--- OUTSIDE RECORDS SUMMARY | 2024-02-05 12:46 | XMS_ITS | Encounter Summary ---
[place] [address] Care Team Providers Care Senior Hr Generalist Name Role Phone Ana Gillespie APRN Primary Care Provider [phone] Reason for Referral * Consultation (Urgent) - Closed Specialty Diagnoses / Procedures Referred By Contac t Referred To Contact Cardiology Diagnoses Cardiac LV ejection fraction 30-35% Ana Gillespie APRN [address] [place] [address] [facility] [address] [place] [phone] Referral ID Status Reason Start Date Expiration Date V isits Requested Visits Authorized [id number] Closed Consult, Test & Treat PCP Updated and/or Approved 11/23/2022 11/23/2023 12 12 Encounter Details Date Type Department Care Team (Latest Contact Info) Description 11/23/2022 Transcribe Orders eDH Incoming Referrals [phone] Ana Gillespie APRN [address] [place] [address] Cardiac LV ejection fraction 30-35% Social History [...] PM EDT Office Visit Cardiology at [address] [address] Milagros Hernandez MD [facility] [place] [address] Scheduled Procedures Name Priority Associated Diagnoses Date/Ti [...] system documented in this encounter Care Teams Senior Hr Generalist Relationship Specialty Start Date End Date Ana Gillespie APRN [address] [place] [address] PCP - General Family Medicine 02/03/19 documented as of this encounter
--- OUTSIDE RECORDS SUMMARY | 2024-02-05 12:46 | XMS_ITS | Encounter Summary ---
[place] [address] Care Team Providers Care Offset Assistant Press Operator Name Role Phone Ana Gillespie VAUGHN Primary Care Provider Encounter Details Date Type Department Care Team (Late Contact Info) Description 01/14/2023 Telephone [place] [address] Juice Maxwell RN Social History [...] PM EDT Office Visit Cardiology at [address] [address] Milagros Hernandez MD [facility] [place] [address] Scheduled Procedures Name Priority Associated Diagnoses Date/Ti me EGD, UPPER GI ENDOSCOPY (WRV U 2.09) Peptic stricture of esophagus documented as of this encounter Visit Diagnoses Not on filedocumented in this encounter Care Teams Offset Assistant Press Operator Relationship Specialty Start Date End Date Ana Gillespie APRN [address] [place] [address] PCP - General Family Medicine 02/03/19 documented as of this encounter
--- OUTSIDE RECORDS SUMMARY | 2024-02-05 12:46 | XMS_ITS | Encounter Summary ---
Author Organization [facility] Address [facility] [place] [address] Care Team Providers Care Circuit Designer Name Role Phone Ana Gillespie VAUGHN Primary Care Provider [phone] Encounter Details Date Type Department Care Team (Latest Contact Info) Description 01/12/2023 6:17 AM EDT - 01/12/2023 10:54 AM EDT Hospital Encounter [place] [address] David Dejesus MD [facility] [place] [address] Discharge Disposition: Home Social History Tobacco Use [...] the day after the procedure, use an odyb-ncr-tzcugwu spray to numb your throat. Sucking on [...] occurs, please contact your Doctor. Please call [phone] before 8pm Mon-Fri with problems, questions or concerns. If you call after 8pm or on weekends, call the Hospital at [phone] and ask to speak to the Agronomy Professor concrete truck driver and the alodize machine operator will contact that person for [...] After Visit Summary and more online at [email or web address] If you would like to provide feedback about your hospital experience, please call the Office of Patient and Family Relations at . If you have received this After Visit Summary in error, please immediately return it in person to the department, or notify the [facility] Privacy Office by calling toll free at between the hours of 8AM and 5PM to arrange for our retrieval of the documents at no cost to you. Content Version: 12.2 ?? [id number] [employer]. Care instructions adapted under license by [facility]. If you have questions about a medical condition or this instruction, always ask your healthcare professional. [employer], [employer] disclaims any warranty or liability for your [...] strips. 300 each 3 12/14/2014 Blood-Glucose Meter (Leapfrog OnlineTOUCH ULTRA2) KitIndications:Type 2 diabetes mellitus, uncontrolled by Other route. 1 = one blood glucose meter kit. 1 each 0 12/14/2014 Insulin [place], Disposable, (BD INSULIN PEN NEEDLE UF MINI) 31 x 3/16 NeedleIndications:Di abetes mellitus type 2, uncontrolled 1 Device by [facility]Non-Drug; Combo Route) route 3 times [...] PM EDT Office Visit Cardiology at [address] [address] Milagros Hernandez MD [facility] [place] [address] Scheduled Procedures Name Priority Associated Diagnoses Date/Ti me EGD, UPPER GI ENDOSCOPY (WRV U 2.09) Peptic stricture of esophagus documented as of this encounter Procedures Procedure Name Priority Date/Time Associated Diagnosis Comments Up Gi Endoscopy, Ball Dil, 30Mm ([id number]) 01/12/2023 8:06 AM EDT Peptic stricture of esophagus POCT GLUCOSE Routine 01/12/2023 7:31 AM EDT documented in this encounter Results * POCT Glucose (01/12/2023 7:31 AM EDT) Glucose, POC 115 65 - 199 mg/dL [facility] Comment: Supplemental ranges: <140 mg/dL before meals <180 mg/dL all other times of the day Blood 01/12/2023 7:31 AM EDT 01/12/2023 7:31 AM EDT David Dejesus MD POINT OF CARE TEST ORDERABLES [facility] [address] [facility] [place] [address] documented in this encounter Visit Diagnoses Not [...] (CANCELED) 100 mL/hr, Intravenous, CONTINUOUS, Starting on Tu01/12/23 at 0745, Until Wed01/12/23 at 1008, Endoscopy (Day of Procedure) 0745 (New Bag - Prov ider: Mckenzie Ricardo RN)0914 (Paused - Provider: Chiquis Burnham CRNA - Comment: Switch to gravity)0915 (Restarted - Provider: Chiquis Burnham CRNA) documented in this encounter Care Teams Circuit Designer Relationship Specialty Start Date End Date Ana Gillespie APRN [address] [place] [address] PCP - General Family Medicine 02/03/19 documented as of this encounter
--- OUTSIDE RECORDS SUMMARY | 2024-02-05 12:46 | XMS_ITS | Encounter Summary ---
Author Organization [facility] [place] [address] Care Team Providers Care Plastics Fabricator And Assembler Name Role Phone Ana Gillespie APRN Primary Care Provider [phone] Reason for Visit * Reason Onset Date Comments Questions 03/02/2023 Med changes at [facility] visit Encounter Details Date Type Department Care Team (Late st Contact Info) Description 03/02/2023 Telephone Cardiology at [address] [phone] Chela Walsh RN Questions (Med changes at [...] the hospital over the past weekend at [facility] for pneumonia. While there they restarted the [...] PM EDT Office Visit Cardiology at [address] [phone] Milagros Hernandez MD [facility] [place] [address] Scheduled Procedures Name Priority Associated Diagnoses Date/Ti pr EGD, UPPER GI ENDOSCOPY (WRV U 2.09) Peptic stricture of esophagus documented as of this encounter Visit Diagnoses Not on filedocumented in this encounter Care Teams Plastics Fabricator And Assembler Relationship Specialty Start Date End Date Ana Gillespie APRN [address] [place] [address] PCP - General Family Medicine 02/03/19 documented as of this encounter
--- OUTSIDE RECORDS SUMMARY | 2024-02-05 12:46 | XMS_ITS | Encounter Summary ---
Author Organization [facility] [place] [address] Care Team Providers Care Center Administrator Name Role Phone Ana Gillespie APRN Primary Care Provider [phone] Encounter Details Date Type Department Care Team (Late Contact Info) Description 02/26/2023 Orders [place] [phone] David Dejesus MD [facility] [place] [address] Peptic stricture of esophagus Social History Tobacco [...] PM EDT Office Visit Cardiology at [address] [phone] Milagros Hernandez MD [facility] [place] [address] Scheduled Orders Name Type Priority Associated Diagnoses [...] esophagus documented in this encounter Care Teams Center Administrator Relationship Specialty Start Date End Date Ana Gillespie APRN [address] [place] [address] PCP - General Family Medicine 02/03/19 documented as of this encounter
--- OUTSIDE RECORDS SUMMARY | 2024-02-05 12:46 | XMS_ITS | Encounter Summary ---
Author Organization [facility] [place] [address] Care Team Providers Care English Faculty Member Name Role Phone Ana Gillespie VAUGHN Primary Care Provider [phone] Encounter Details Date Type Department Care Team (Late Contact Info) Description 10/29/2022 Telephone [place] [phone] Elsie Erickson APRN [facility] [place] [address] Social History Tobacco Use Types Packs/Day Years [...] her blood sugars. She attempted to find Campos for details though he was unavailable. Will attempt to call back tomorrow. documented in this encounter Plan of Treatment Upcoming Encounters Date Type Department Care Team (Late st Contact Info) Description 03/10/2024 4:00 PM EDT Office Visit Cardiology at [address] [address] Milagros Hernandez MD [facility] [place] [address] Scheduled Procedures Name Priority Associated Diagnoses Date/Ti me EGD, UPPER GI ENDOSCOPY (WRV U 2.09) Peptic stricture of esophagus documented as of this encounter Visit Diagnoses Not on filedocumented in this encounter Care Teams English Faculty Member Relationship Specialty Start Date End Date Ana Gillespie APRN [address] [place] [address] PCP - General Family Medicine 02/03/19 documented as of this encounter
--- OUTSIDE RECORDS SUMMARY | 2024-02-05 12:46 | XMS_ITS | Encounter Summary ---
Author Organization [facility] Address [facility] [place] [address] Care Team Providers Care Retail Area Manager Name Role Phone Ana Gillespie APRN Primary Care Provider [phone] Encounter Details Date Type Department Care Team (Late st Contact Info) Description 01/13/2023 Telephone [place] [phone] Parris Maravilla Social History Tobacco Use Types [...] 4:00 PM EDT Office Visit Cardiology at [address] [phone] Milagros Hernandez MD [facility] [place] [address] Scheduled Procedures Name Priority Associated Diagnoses Date/Ti me EGD, UPPER GI ENDOSCOPY (WRV U 2.09) Peptic stricture of esophagus documented as of this encounter Visit Diagnoses Not on filedocumented in this encounter Care Teams Retail Area Manager Relationship Specialty Start Date End Date Ana Gillespie APRN [address] [place] [address] PCP - General Family Medicine 02/03/19 documented as of this encounter
--- OUTSIDE RECORDS SUMMARY | 2024-02-05 12:46 | XMS_ITS | Encounter Summary ---
Author Organization [facility] Address [facility] [place] [address] Care Team Providers Care Mud Logger Name Role Phone Ana Gillespie APRN Primary Care Provider [phone] Encounter Details Date Type Department Care Team (Late st Contact Info) Description 12/24/2022 11:54 AM EDT Anesthesia [place] [phone] Tim Wagner MD [facility] [place] [address] Jeanette Hutchins CRNA [facility] [place] [address] Anesthesia Record Procedure Summary Procedure Name Responsible [...] 218.4 mg Dexmedetomidine 8 mcg Benzocaine 20% [place] 1 spray PHENYLephrine 720 mcg ePHEDrine 40 mg lactated ringers infusion 600 mL * Agents Name O2 Air N2O O2 Auxiliary Flowmeter 1 * Blood No blood administrations on file. 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 Patient Location: PACU/NJP Level of Consciousness: Conscious but Sleepy Pain [...] y.o. female. 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 Bipolar disorder 02/12/2022 BMI 37.0-37.9, adult 12/13/2014 T2DM (type 2 diabetes mellitus) 12/12/2014 GERD (gastroesophageal reflux disease) 03/15/2013 Covington's esophagus 03/15/2013 Past Medical History: Diagnosis Date Bipolar disorder 02/12/2022 Past Surgical History: Procedure Laterality Date IR G-TUBE CHECK/CHANGE 11/27/2022 IR G-Tube Check/Change 11/27/2022 Hang Cooper PA [facility] IR G-TUBE PLACEMENT 09/11/2022 IR G-Tube Placement 09/11/2022 Moustapha Hart MD [facility] IR SUTURE RELEASE 09/25/2022 IR Suture Release 09/25/2022 Yoselin Ghosh PA [facility] PERCUTANEOUS GASTROSTOMY N/A 09/11/2022 PERCUTANEOUS GASTROSTOMY performed by Aiden Flores MD at [facility] PRO COLONOSCOPY, BIOPSY N/A 03/20/2016 COLONOSCOPY FLEXIBLE, WITH BX performed by David Dejesus MD at [facility] PRO COLONOSCOPY, DIAGNOSTIC N/A 03/01/2020 COLONOSCOPY, DIAGNOSTIC performed by David Dejesus MD at [facility] PRO ENDOSCOPIC US EXAM, ESOPH N/A 03/31/2022 UPPER EUS- ENDOSCOPIC ULTRASOUND performed by David Dejesus MD at [facility] PRO UPPER GI ENDOSCOPY, BIOPSY N/A 04/03/2014 UPPER GASTROINTESTINAL ENDOSCOPY,WITH BIOPSY SINGLE OR MULTIPLE performed by David Dejesus MDat [facility] PRO UPPER GI ENDOSCOPY, BIOPSY N/A 03/20/2016 EGD WITH BIOPSY performed by David Dejesus MD at [facility] PRO UPPER GI ENDOSCOPY, BIOPSY N/A 11/22/2018 EGD WITH BIOPSY (WRVU 2.49) performed by David Dejesus MD at [facility] PRO UPPER GI ENDOSCOPY, BIOPSY N/A 03/01/2020 UPPER GASTROINTESTINAL ENDOSCOPY,WITH BIOPSY SINGLE OR MULTIPLE (WRVU 2.49) performed by David Dejesus MD at [facility] PRO UPPER GI ENDOSCOPY, BIOPSY N/A 09/23/2021 EGD WITH BIOPSY (WRVU 2.49) performed by David Dejesus MD at [facility] PRO UPPER GI ENDOSCOPY, BIOPSY N/A 03/31/2022 EGD WITH BIOPSY (WRVU 2.49) performed by David Dejesus MD at [facility] PRO UPPER GI ENDOSCOPY, BIOPSY N/A 07/03/2022 EGD WITH BIOPSY (WRVU 2.49) performed by David Dejesus MD at [facility] PRO UPPER GI ENDOSCOPY, DIAGNOSTIC N/A 04/03/2014 EGD, UPPER GI ENDOSCOPY performed by David Dejesus MD at [facility] PRO UPPER GI ENDOSCOPY, DIAGNOSTIC N/A 03/01/2020 EGD, UPPER GI ENDOSCOPY performed by David Dejesus MD at [facility] PRO UPPER GI ENDOSCOPY, DIAGNOSTIC N/A 09/09/2022 EGD, UPPER GI ENDOSCOPY (WRVU 2.09) performed by Ayo Russ MD at [facility] Social History Tobacco Use Smoking [...] risks discussed with patient. Plan discussed with HEAVY THREADER and attending. Anesthesia Screening documented in this encounter Plan of Treatment Upcoming Encounters Date Type Department Care Team (Late st Contact Info) Description 03/10/2024 4:00 PM EDT Office Visit Cardiology at [address] [phone] Milagros Hernandez MD [facility] [place] [address] Scheduled Procedures Name Priority Associated Diagnoses Date/Ti [...] mg documented in this encounter Care Teams Mud Logger Relationship Specialty Start Date End Date Ana Gillespie APRN [address] [place] [address] PCP - General Family Medicine 02/03/19 documented as of this encounter
--- OUTSIDE RECORDS SUMMARY | 2024-02-05 12:46 | XMS_ITS | Encounter Summary ---
Author Organization [facility] [place] [address] Care Team Providers Care Head Of Sales Promotion Name Role Phone Ana Gillespie VAUGHN Primary Care Provider [phone] Encounter Details Date Type Department Care Team (Late st Contact Info) Description 12/10/2022 Telephone Gastroenterology at [facility] [place] [address] Jessica Beckman Social History Tobacco Use Types [...] - 12/10/2022 10:00 AM EDT Jennifer Irving [id number] Diagnosis/Indication: Dysphagia, Follow-up of Farrell's esophagus Please [...] a/an Upper Endoscopy before? Yes: Date 09/10/22 [facility] If yes, did you have any problems [...] your procedure. Who will likely be your electric lift truck driver for the procedure? *Please Verify [...] PM EDT Office Visit Cardiology at [address] [phone] Milagros Hernandez MD [facility] [place] [address] Scheduled Procedures Name Priority Associated Diagnoses Date/Ti me EGD, UPPER GI ENDOSCOPY (WRV U 2.09) Peptic stricture of esophagus documented as of this encounter Visit Diagnoses Not on filedocumented in this encounter Care Teams Head Of Sales Promotion Relationship Specialty Start Date End Date Ana Gillespie APRN [address] [place] [address] PCP - General Family Medicine 02/03/19 documented as of this encounter
--- OUTSIDE RECORDS SUMMARY | 2024-02-05 12:46 | XMS_ITS | Encounter Summary ---
Author Organization [facility] Address [facility] [place] [address] Care Team Providers Care Cash Room Clerk Name Role Phone Ana Gillespie APRN Primary Care Provider [phone] Encounter Details Date Type Department Care Team (Late st Contact Info) Description 11/12/2022 11:30 AM EDT Office [place] [phone] Dixie Tadeo MD [facility] [place] [address] Type 2 diabetes mellitus with diabetic polyneuropathy, [...] mg 250mg x4 per TF can [] 6053-0442 mg [] 1707-7212 mg [] Above 1500 mg Medications: Current [...] glucose meter kit. 1 each 0 Insulin [place], Disposable, (BD INSULIN PEN NEEDLE UF MINI) [...] 30 ng/ml and above. Was started on [id number],000 U Q weekly when inpatient. C. Will order BMD by DXA now, will be done at [facility] D. If 25 Vit D at good [...] 4:00 PM EDT Office Visit Cardiology at [address] [address] Milagros Hernandez MD [facility] [address] Scheduled Procedures Name Priority Associated Diagnoses Date/Ti me EGD, UPPER GI ENDOSCOPY (WRV U 2.09) Peptic stricture of esophagus documented as of this encounter Visit Diagnoses Diagnosis Type 2 diabetes mellitus with diabetic polyneuropathy, with long-term current use of insulin Osteoporosis, unspecified osteoporosis type, unspecified pathological fracture presence documented in this encounter Care Teams Cash Room Clerk Relationship Specialty Start Date End Date Ana Gillespie APRN [address] [place] [address] PCP - General Family Medicine 02/03/19 documented as of this encounter
--- OUTSIDE RECORDS SUMMARY | 2024-02-05 12:46 | XMS_ITS | Encounter Summary ---
Author Organization [facility] Address [facility] [place] [address] Care Team Providers Care Radio Director Name Role Phone Ana Gillespie VAUGHN Primary Care Provider [phone] Encounter Details Date Type Department Care Team (Latest Contact Info) Description 12/24/2022 9:38 AM EDT - 12/24/2022 1:43 PM EDT Hospital Encounter [place] [phone] David Dejesus MD [facility] [place] [address] Discharge Disposition: Home Social History Tobacco Use [...] 180 tablet 3 10/20/2021 Blood Sugar Diagnostic ([employer] ULTRA TEST) StripIndications:Typ e 2 diabetes mellitus, [...] meter kit. 1 each 0 12/14/2014 Insulin [place], Disposable, (BD INSULIN PEN NEEDLE UF MINI) 31 x 07/23 NeedleIndications:Di abetes mellitus type 2, uncontrolled 1 Device by [facility].(Non-Drug; Combo Route) route 3 times daily as [...] glucose meter kit. 1 each 0 Insulin [place], Disposable, (BD INSULIN PEN NEEDLE UF MINI) 31 x 3/16 Needle 1 Device by Misc.(Non-Drug; Combo Route) route 3 times daily as needed. 100 each 11 PHYSICAL EXAM: Blood pressure 110/57, pulse 62, temperature 36.2 ??C (97.2 ??F), temperature source Tympanic, DxX454 %. GEN: Alert, cooperative. Pleasant. In NAD [...] PM EDT Office Visit Cardiology at [address] [phone] Milagros Hernandez MD [facility] [place] [address] Scheduled Procedures Name Priority Associated Diagnoses Date/Ti me EGD, UPPER GI ENDOSCOPY (WRV U 2.09) Peptic stricture of esophagus documented as of this encounter Procedures Procedure Name Priority Date/Time Associated Diagnosis Comments Up Gi Endoscopy, Rick Chavez, 30Mm (11558) 12/24/2022 11:56 AM EDT Farrell's esophagus without dysplasia UPPER GI ENDOSCOPY Routine 12/24/2022 11 :46 AM EDT POCT GLUCOSE Routine 12/24/2022 11:02 AM EDT documented in this encounter Results * UPPER GI ENDOSCOPY (12/24/2022 11:46 AM EDT) UPPER GI ENDOSCOPY [facility] Endoscopy Procedure Date: 12/24/2022 11:46 AM ? Patient Name: Jennifer Irving ? Date of : 1960 ? Age: 62 ? Order #: [id number] ? Instrument Name: [id number] ? Procedure: ? Upper GI endoscopy Indications: [...] GENERAL SURGICAL ORD ERABLES Performing Organization Address City/[facility] Co de Phone Number [employer] * POCT Glucose (12/24/2022 11:02 AM EDT) Glucose, POC 123 65 - 199 mg/dL [facility] Comment: Supplemental ranges: <140 mg/dL before meals <180 mg/dL all other times of the day Blood 12/24/2022 11:0 2 AM EDT 12/24/2022 11:02 AM EDT David Dejesus MD POINT OF CARE TEST ORDERABLES Performing Organization Address [facility] Co de Phone Number [facility] [place] [address] documented in this encounter Visit Diagnoses Not [...] CRNA) documented in this encounter Care Teams Radio Director Relationship Specialty Start Date End Date Ana Gillespie APRN [address] [place] [address] PCP - General Family Medicine 02/03/19 documented as of this encounter
--- OUTSIDE RECORDS SUMMARY | 2024-02-05 12:46 | XMS_ITS | Encounter Summary ---
Author Organization [facility] [place] [address] Care Team Providers Care Body Die Maker Name Role Phone Ana Gillespie VAUGHN Primary Care Provider [phone] Reason for Visit * Reason Onset Date Comments Triage 02/24/2023 hypotension Encounter Details Date Type Department Care Team (Late st Contact Info) Description 02/24/2023 Telephone Cardiology at [address] [phone] Chela Inman set up operator tool (hypotension) Social History Tobacco Use Types Packs/Day [...] BP med(s). She can be reached at [phone]. Call placed to Campos, spouse & career discovery teacher to get more information for Dr Hernandez. [...] PM EDT Office Visit Cardiology at [address] [phone] Milagros Hernandez MD [facility] [place] [address] Scheduled Procedures Name Priority Associated Diagnoses Date/Ti me EGD, UPPER GI ENDOSCOPY (WRV U 2.09) Peptic stricture of esophagus documented as of this encounter Visit Diagnoses Not on filedocumented in this encounter Care Teams Body Die Maker Relationship Specialty Start Date End Date Ana Gillespie APRN [address] [place] [address] PCP - General Family Medicine 02/03/19 documented as of this encounter
--- OUTSIDE RECORDS SUMMARY | 2024-02-05 12:46 | XMS_ITS | Encounter Summary ---
Author Organization [facility] [address] Care Team Providers Care Motor Boss Name Role Phone Ana Gillespie APRN Primary Care Provider [phone] Encounter Details Date Type Department Care Team [...] PM EDT Office Visit Cardiology at [address] [address] Milagros Hernandez MD [facility] [place] [address] Scheduled Procedures Name Priority Associated Diagnoses Date/Ti me EGD, UPPER GI ENDOSCOPY (WRV U 2.09) Peptic stricture of esophagus documented as of this encounter Visit Diagnoses Not on filedocumented in this encounter Care Teams Motor Boss Relationship Specialty Start Date End Date Ana Gillespie APRN [address] [place] [address] PCP - General Family Medicine 02/03/19 documented as of this encounter
--- OUTSIDE RECORDS SUMMARY | 2024-02-05 12:46 | XMS_ITS | Encounter Summary ---
Author Organization [facility] [place] [address] Care Team Providers Care Special Education Kindergarten Teacher Name Role Phone Ana Gillespie FARM CREW MEMBER Primary Care Provider [phone] Reason for Visit * Reason Onset Date Comments Medication Refill 11/19/2022 Encounter Details Date Type Department Care Team (Late st Contact Info) Description 11/19/2022 [place] [address] Alyce Vogt RN Social History Tobacco Use [...] PM EDT Office Visit Cardiology at [address] [phone] Milagros Hernandez MD [facility] [place] [address] Scheduled Procedures Name Priority Associated Diagnoses Date/Ti me EGD, UPPER GI ENDOSCOPY (WRV U 2.09) Peptic stricture of esophagus documented as of this encounter Visit Diagnoses Not on filedocumented in this encounter Care Teams Special Education Kindergarten Teacher Relationship Specialty Start Date End Date Ana Gillespie APRN [address] [place] [address] PCP - General Family Medicine 02/03/19 documented as of this encounter
--- OUTSIDE RECORDS SUMMARY | 2024-02-05 12:46 | XMS_ITS | Encounter Summary ---
Author Organization [facility] Address [facility] [place] [address] Care Team Providers Care Director Of Maintenance Name Role Phone Ana Gillespie APRN Primary Care Provider [phone] Reason for Visit * Consultation (Urgent) - Closed Specialty Diagnoses / Procedures Referred By Esperanza t Referred To Contact Cardiology Diagnoses Cardiac LV ejection fraction 30-35% Ana Gillespie APRN [address] [place] [address] [facility] Cardiology [address]a [address] [place] [phone] Referral ID Status Reason Start Date Expiration Date V isits Requested Visits Authorized [id number] Closed Consult, Test & Treat PCP Updated and/or Approved 11/23/2022 11/23/2023 12 12 Encounter Details Date Type Department Care Team (Latest Contact Info) Description 01/15/2023 11:20 AM EDT Office Visit Cardiology at [address] [phone] Milagros Hernandez MD [facility] [place] [address] Stress-induced cardiomyopathy (Primary Dx); HFrEF (heart failure [...] from the original note were not included. [facility] [place] [address] CARDIOLOGY OUTPATIENT NOTE PRIMARY CARE PROVIDER: Ana [...] glucose meter kit. 1 each 0 Insulin [place], Disposable, (BD INSULIN PEN NEEDLE UF MINI) 31 x 3/16 Needle 1 Device by [facility]Non-Drug; Combo Route) route 3 times daily as [...] putting in new L hip replacement at [facility] next week due to inadequate healing form [...] 450 QTC Calculated (Bezet) 426 Calculated P [place] 55 Calculated R [place] 56 Calculated T [place] 49 INTERPRETATION Sinus bradycardia Low voltage QRS [...] Sinus bradycardia, low voltage, otherwise normal TTE ([facility], 11/20/22): TTE (08/19/22): Interpretation Summary -Left [...] personal interpretation of testing results, medication reconciliation, [id number] interview, examination and counseling of the patient, coordination of care and documentation of the above. Thank you for the opportunity to participate in this patient's cardiovascular care. All questions were answered and I look forward to the next visit. Milagros Hernandez MD Cardiovascular Medicine [facility] 01/15/2023 documented in this encounter Plan of Treatment Upcoming Encounters Date Type Department Care Team (Late st Contact Info) Description 03/10/2024 4:00 PM EDT Office Visit Cardiology at [address] [phone] Milagros Hernandez MD [facility] [place] [address] Scheduled Procedures Name Priority Associated Diagnoses Date/Ti [...] (Bezet) 426 ms MUSE SYSTEM Calculated P [place] 55 degrees MUSE SYSTEM Calculated R [place] 56 degrees MUSE SYSTEM Calculated T [place] 49 degrees MUSE SYSTEM INTERPRETATION Sinus bradycardia [...] fraction) documented in this encounter Care Teams Director Of Maintenance Relationship Specialty Start Date End Date Ana Gillespie APRN [address] [place] [address] PCP - General Family Medicine 02/03/19 documented as of this encounter
--- OUTSIDE RECORDS SUMMARY | 2024-02-05 12:47 | XMS_ITS | Encounter Summary ---
Author Organization [facility] [place] [address] Care Team Providers Care Psychological Stress Evaluator Name Role Phone Jose MiguelAna VAUGHN Primary Care Provider [phone] Reason for Visit * Reason Onset Date Comments Diabetes 09/30/2022 Encounter Details Date Type Department Care Team (Late st Contact Info) Description 09/30/2022 Telephone [place] [address] Elsie Erickson COURTROOM REPORTER [facility] [place] [address] Diabetes Social History Tobacco Use Types Packs/Day [...] PM EDT Office Visit Cardiology at [address] [phone] Milagros Hernandez MD [facility] [place] [address] Scheduled Procedures Name Priority Associated Diagnoses Date/Ti me EGD, UPPER GI ENDOSCOPY (WRV U 2.09) Peptic stricture of esophagus documented as of this encounter Visit Diagnoses Not on filedocumented in this encounter Care Teams Psychological Stress Evaluator Relationship Specialty Start Date End Date Ana Gillespie APRN [address] [place] [address] PCP - General Family Medicine 02/03/19 documented as of this encounter
--- OUTSIDE RECORDS SUMMARY | 2024-02-05 12:47 | XMS_ITS | Encounter Summary ---
Author Organization [facility] Address [facility] [place] [address] Care Team Providers Care C Iron Worker Name Role Phone Ana Gillespie APRN Primary Care Provider [phone] Encounter Details Date Type Department Care Team (Late st Contact Info) Description 09/29/2022 Telephone [place] [phone] Elsie Erickson APRN [facility] [place] [address] Social History Tobacco Use Types Packs/Day Years [...] 4:00 PM EDT Office Visit Cardiology at [address] [phone] Milagros Hernandez MD [facility] [place] [address] Scheduled Procedures Name Priority Associated Diagnoses Date/Ti me EGD, UPPER GI ENDOSCOPY (WRV U 2.09) Peptic stricture of esophagus documented as of this encounter Visit Diagnoses Not on filedocumented in this encounter Care Teams C Iron Worker Relationship Specialty Start Date End Date Ana Gillespie APRN [address] [place] [address] PCP - General Family Medicine 02/03/19 documented as of this encounter
--- OUTSIDE RECORDS SUMMARY | 2024-02-05 12:47 | XMS_ITS | Encounter Summary ---
Author Organization [facility] [place] [address] Care Team Providers Care Filter Press Supervisor Name Role Phone Ana Gillespie VAUGHN Primary Care Provider [phone] Reason for Visit * Reason Onset Date Comments Diabetes 09/30/2022 Encounter Details Date Type Department Care Team (Late st Contact Info) Description 09/30/2022 Telephone [place] [phone] Elsie Erickson APRN [facility] [place] [address] Diabetes Social History Tobacco Use Types Packs/Day [...] PM EDT Office Visit Cardiology at [address] [phone] Milagros Hernandez MD [facility] [place] [address] Scheduled Procedures Name Priority Associated Diagnoses Date/Ti me EGD, UPPER GI ENDOSCOPY (WRV U 2.09) Peptic stricture of esophagus documented as of this encounter Visit Diagnoses Not on filedocumented in this encounter Care Teams Filter Press Supervisor Relationship Specialty Start Date End Date Ana Gillespie APRN [address] [place] [address] PCP - General Family Medicine 02/03/19 documented as of this encounter
--- OUTSIDE RECORDS SUMMARY | 2024-02-05 12:47 | XMS_ITS | Encounter Summary ---
Author Organization [facility] [place] [address] Care Team Providers Care Supervisor Detasseling Crew Name Role Phone Ana Gillespie VAUGHN Primary Care Provider [phone] Reason for Visit * Reason Onset Date Comments Diabetes 09/29/2022 Encounter Details Date Type Department Care Team (Late st Contact Info) Description 09/29/2022 [place] [phone] Elsie Erickson APRN [facility] [place] [address] Diabetes Social History Tobacco Use Types Packs/Day [...] 4:00 PM EDT Office Visit Cardiology at [address] [phone] Milagros Hernandez MD [facility] [place] [address] Scheduled Procedures Name Priority Associated Diagnoses Date/Ti me EGD, UPPER GI ENDOSCOPY (WRV U 2.09) Peptic stricture of esophagus documented as of this encounter Visit Diagnoses Not on filedocumented in this encounter Care Teams Supervisor Detasseling Crew Relationship Specialty Start Date End Date Ana Gillespie APRN [address] [place] [address] PCP - General Family Medicine 02/03/19 documented as of this encounter
--- OUTSIDE RECORDS SUMMARY | 2024-02-05 12:47 | XMS_ITS | Encounter Summary ---
Author Organization [facility] [place] [address] Care Team Providers Care Airflight Attendants Supervisor Name Role Phone Ana Gillespie VAUGHN Primary Care Provider [phone] Encounter Details Date Type Department Care Team (Latest Contact Info) Description 10/16/2022 Unscheduled Encounter Endocrinology at [facility] [place] [phone] Elsie Erickson APRN [facility] [place] [address] Type 2 diabetes mellitus with hyperglycemia, with [...] PM EDT Office Visit Cardiology at [address] [phone] Milagros Hernandez MD [facility] [address] Scheduled Procedures Name Priority Associated Diagnoses Date/Ti me EGD, UPPER GI ENDOSCOPY (WRV U 2.09) Peptic stricture of esophagus documented as of this encounter Visit Diagnoses Diagnosis Type 2 diabetes mellitus with hyperglycemia, with long-term current use of insulin documented in this encounter Care Teams Airflight Attendants Supervisor Relationship Specialty Start Date End Date Ana Gillespie APRN [address] [place] [address] PCP - General Family Medicine 02/03/19 documented as of this encounter
--- OUTSIDE RECORDS SUMMARY | 2024-02-05 12:47 | XMS_ITS | Encounter Summary ---
Author Organization [facility] Address [facility] [place] [address] Care Team Providers Care Bag Machine Operator Name Role Phone Ana Gillespie APRN Primary Care Provider Reason for Visit * Reason Onset Date Comments Disability Paperwork 10/09/2022 Completed [facility] Medicaid Intake Interview with Jennifer over the phone with Nery Potter from [place] [employer] [facility] Encounter Details Date Type Department Care Team (Late st Contact Info) Description 10/09/2022 Telephone [place] [address] Alicia Gillis Disability Paperwork (Completed Senior Living [facility] Medicaid Intake Interview with Jennifer over the phone with Nery Potter from [place] [employer] [facility] ) Social History Tobacco Use Types Packs/Day [...] PM EDT Office Visit Cardiology at [address] [phone] Milagros Hernandez MD [facility] [place] [address] Scheduled Procedures Name Priority Associated Diagnoses Date/Ti me EGD, UPPER GI ENDOSCOPY (WRV U 2.09) Peptic stricture of esophagus documented as of this encounter Visit Diagnoses Not on filedocumented in this encounter Care Teams Bag Machine Operator Relationship Specialty Start Date End Date Ana Gillespie APRN [address] [place] [address] PCP - General Family Medicine 02/03/19 documented as of this encounter
--- OUTSIDE RECORDS SUMMARY | 2024-02-05 12:47 | XMS_ITS | Encounter Summary ---
[place] [address] Care Team Providers Care Branch Associate Teller Name Role Phone Ana Gillespie VAUGHN Primary Care Provider [phone] Reason for Referral * Diagnostic Test (Routine) - Closed Specialty Diagnoses / Procedures Referred By Esperanza rodríguez Referred To Contact Radiology Diagnoses Gastrostomy tube in place Procedures IR Suture Release Moustapha Hart MD [facility] [place] [address] [place] [address] Referral ID Status Reason Start Date Expiration Date V isits Requested Visits Authorized [id number] Closed Specialty Service Requested 09/11/2022 03/14/2024 1 1 Reason for Visit * Auth/Cert (Routine) Specialty Diagnoses / Procedures Referred By Esperanza rodríguez Referred To Contact Diagnoses Shock CARDIOGENIC PULMONARY EDEMA Procedures ER Carlos Melton MD [facility] [place] [address] [facility] Referral ID Status Reason Start Date Expiration Date Visits Re quested Visits Authorized [id number] 1 1 Encounter Details Date Type Department Care Team (Latest Contact Info) Description 09/25/2022 9:00 AM EDT - 09/25/2022 11:59 PM EDT Hospital [place] [address] Discharge [...] 180 tablet 3 10/20/2021 Blood Sugar Diagnostic ([facility]) StripIndications:Typ e 2 diabetes mellitus, [...] meter kit. 1 each 0 12/14/2014 Insulin [place], Disposable, (BD INSULIN PEN NEEDLE UF MINI) [...] to AVS in admission encounter and below. [facility] INTERVENTIONAL RADIOLOGY NURSES NOTE FOR GASTROPEXY [...] is during regular office hours, please call [phone]. If it is after regular office hours, or on weekends or holidays, please call [phone] and ask to speak to the Clerical Proofreader superintendent division for Interventional Radiology. Revised 02/23/19 documented in this encounter Plan of Treatment Upcoming Encounters Date Type Department Care Team (Late st Contact Info) Description 03/10/2024 4:00 PM EDT Office Visit Cardiology at [address] [phone] Milagros Hernandez MD [facility] [place] [address] Scheduled Procedures Name Priority Associated Diagnoses Date/Ti me EGD, UPPER GI ENDOSCOPY (WRV U 2.09) Peptic stricture of esophagus documented as of this encounter Procedures Procedure Name Priority Date/Time Associated Diagnosis Comments IR SUTURE RELEASE Routine 09/25/2022 9:5 6 AM EDT Gastrostomy tube in place documented in this encounter Results * IR Suture Release (09/25/2022 9:56 AM EDT) Narrative RAD - 09/25/2022 10:16 AM EDT This exam is auto-finalizing. No interpretation was done. Moustapha Hart MD IMG IR ORDERABLES [place], [place] documented in this encounter Visit Diagnoses Diagnosis Gastrostomy tube in place documented in this encounter Care Teams Branch Associate Teller Relationship Specialty Start Date End Date Ana Gillespie APRN [address] [place] [address] PCP - General Family Medicine 02/03/19 documented as of this encounter
--- OUTSIDE RECORDS SUMMARY | 2024-02-05 12:47 | XMS_ITS | Encounter Summary ---
Author Organization [facility] Address [facility] [place] [address] Care Team Providers Care Chief Strategy Officer Name Role Phone Jose MiguelAna VAUGHN Primary Care Provider [phone] Encounter Details Date Type Department Care Team (Late st Contact Info) Description 10/06/2022 Telephone [place] [phone] Elsie Erickson APRN [facility] [place] [address] Social History Tobacco Use Types Packs/Day Years [...] not had tube feeds since last week, [facility] having computer system issues so unable to ship supplies. Campos has been using Ensure boluses 2 x daily as he was directed. He has not noted elevation of her blood sugars with this. BGs in 120s-140s. [facility]. He has no questions and we will check back in the next few days. documented in this encounter Plan of Treatment Upcoming Encounters Date Type Department Care Team (Late st Contact Info) Description 03/10/2024 4:00 PM EDT Office Visit Cardiology at [address] [phone] Milagros Hernandez MD [facility] [place] [address] Scheduled Procedures Name Priority Associated Diagnoses Date/Ti me EGD, UPPER GI ENDOSCOPY (WRV U 2.09) Peptic stricture of esophagus documented as of this encounter Visit Diagnoses Not on filedocumented in this encounter Care Teams Chief Strategy Officer Relationship Specialty Start Date End Date Ana Gillespie APRN [address] [place] [address] PCP - General Family Medicine 02/03/19 documented as of this encounter
--- OUTSIDE RECORDS SUMMARY | 2024-02-05 12:51 | XMS_ITS | Encounter Summary ---
Author Organization [facility] Address [facility] [place] [address] Care Team Providers Care Pit Operator Name Role Phone Chris Stanley VAUGHN Primary Care Provider [phone] Reason for Referral * Home Health Care (Routine) - Denied Specialty Diagnoses / Procedures Referred By Esperanza rodríguez Referred To Contact Diagnoses Neuroleptic-induced parkinsonism Jose Mcleod MD [facility] [place] [address] [address] Referral ID Status Reason Start Date Expiration Date V isits Requested Visits Authorized [id number] Denied Consult, Test & Treat 09/25/2022 09/25/2023 999 0 * Diagnostic Test (Routine) - Closed Specialty Diagnoses / Procedures Referred By Esperanza rodríguez Referred To Contact Radiology Diagnoses Gastrostomy tube in place Procedures IR Suture Release Moustapha Hart MD [facility] [place] [address] [facility] [place] [address] Referral ID Status Reason Start Date Expiration Date V isits Requested Visits Authorized [id number] Closed Specialty Service Requested 09/11/2022 03/14/2024 1 1 * Consultation (Routine) - Canceled Specialty Diagnoses / Procedures Referred By Contac t Referred To Contact Cardiology Diagnoses Stress-induced cardiomyopathy Stress cardiomyopathy. Jigar Streeter MD [facility] [place] [address] [facility] Cardiology [address] [place] [phone] Referral ID Status Reason Start Date Expiration Date V isits Requested Visits Authorized [id number] Canceled Consult, Test & Treat 09/25/2022 09/25/2023 1 1 Reason for Visit * Auth/Cert (Routine) Specialty Diagnoses / Procedures Referred By Contac t Referred To Contact Diagnoses Shock CARDIOGENIC PULMONARY EDEMA Procedures ER IPI Carlos Terry MD [facility] [place] [address] [facility] Referral ID Status Reason Start Date Expiration Date Visits Re quested Visits Authorized [id number] 1 1 Encounter Details Date Type Department Care Team (Late st Contact Info) Description 08/14/2022 11:11 PM EDT - 09/25/2022 11:21 AM EDT Hospital Encounter Medical Specialites Unit Level 1 [place] [address] Carlos Terry MD [facility] CARDIOLOGY [place] [id number] Milagros Hernandez MD [facility] [place] [address] Roland Pruett MD [facility] [place] [address] Alfonso Navarrete MD [facility] [place] [address] Tenisha Sandy MD [facility] [place] [address] [place] [address] [place] [address] [place] [address] [place] [address] [place] [address] [place] [address] [place] [address] Shock; Closed fracture of neck of left femur, initial encounter; Bradycardia; Farrell's esophagus with dysplasia; Gastrostomy tube in place; Esophageal stricture; Cardiomyopathy, unspecified type; Neuroleptic-induced parkinsonism Discharge Disposition: Home with [facility] Social History Tobacco Use Types Packs/Day Years [...] Sign Reading Time Taken Comments Blood Pressure 107/50 09/25/2022 7:20 AM EDT Pulse 74 09/24/2022 7:16 AM EDT Temperature 36.5 ??C (97.7 ??F) 09/25/2022 7:20 AM ED T Respiratory Rate 16 09/24/2022 8:44 PM EDT Oxygen Saturation 96% 09/25/2022 7:20 AM EDT Inhaled Oxygen Concentration - - Weight 63.1 kg (139 lb 1.6 oz) 09/25/2022 6:26 A M EDT Height 152.4 cm (5') 08/16/2022 4:00 AM EDT Body Mass Index 27.17 08/19/2022 3:07 PM EDT documented in this encounter Discharge Summaries * Jose Mcleod MD - 08/29/2022 11:40 AM EDT Images from the original note were not included. Hospital Discharge Summary Patient Name: Ishan Irving Patient Age: 62 y.o. Birthdate: 1960 Admit date: 08/14/2022 Discharge date and time: 09/25/2022 Attending Physician: Jose Mcleod MD ID: Ishan Irving is a 62 year old female with a medical history notable for??recent L femoralneck fracture,??bipolar disorder, resolving medication- induced Parkinsonism, insulin-dependent diabetes mellitus,??hx of alcohol use disorder (reported to be in remission for 1.5 years) c/b chronic pancreatitis, iron deficiency anemia,??GERD??c/b??esophagitis &??Farrell's esophagus??presenting in transfer from [facility], suspected to be in cardiogenic shock and found to be in mixed shock with concern for stress cardiomyopathy. Follow-up Recommendations for Providers: #Type II NSTEMI #Mixed cardiogenic and distributive shock #Acute HFrEF 2/2 stress cardiomyopathy ?? Once out of the [facility] she was started on GDMT including ASA 81mg, Entresto, metoprolol, spironolactone, and empagliflozin. ?? She will require a repeat TTE in ~3 months after discharge. A referral to Cardiology was sent ondischarge. #Bipolar Disorder #Hospital Associated Delirium ?? The patient was discharged on liquid valproate to replace her home valproate #History of Drug-Induced Parkinsonism #Severe Oropharyngeal Dysphagia #Distal Esophageal Dysmotility #GERD complicated by Farrell's Esophagus and Esophagitis ?? Patient underwent G-tube placement with IR and was continued on an tube feeding regimen at the time of discharge #DMII, Insulin Dependent ?? The patient patient's discharge insulin regimen consisted of insulin glargine 10 units daily, NPH 15 units at the beginning of and 6 hours into her tube feed with a correction scale with short-acting insulin #Iron Deficiency Anemia #Anemia of Chronic Disease ?? She was started on an iron supplement which was continued on discharge #Severe Vitamin D Deficiency #Fragility Fracture ?? Endocrinology recommended a calcium citrate 1900mg supplement plus vitamin D twice daily. ?? She was started on ergocalciferol 50,000 units weekly for 8 weeks. ?? A DEXA scan was ordered upon discharge. ?? She was scheduled for Endocrine follow up in November. Pending results at time of discharge: None Discharge Diagnoses (Hospital Problems) and Secondary Diagnoses (Chronic Problems): Active Hospital Problems Diagnosis ??? Bipolar disorder ??? T2DM (type 2 diabetes mellitus) Resolved Hospital Problems Diagnosis Date Resolved ??? Shock 08/22/2022 Active Non-Hospital Problems Diagnosis ??? Neuroleptic-induced parkinsonism ??? BMI 37.0-37.9, adult ??? GERD (gastroesophageal reflux disease) ??? Farrell's esophagus History of Presentation (per 08/14/2022 Admission H&P): Ms. Irving underwent operative fixation of a left femoral neck fracture five days prior, for which she was given opiates for pain control. Per report from , the patient has not been takingthese. The patient was found to be unresponsive at home, therefore prompting EMS call by her . Given her recent prescription of opiates, that patient was given NRcan with mild improvement in her mental status. She was hemodynamically stable but hypoxic to 70s, which improved to 90s on a non-rebreather mask, which was consequently de- escalated to 4L NC. On arrival to [facility], the patient was given further doses of narcan without significant effect on her mental status. ?? OSH workup: ?? Labs: - ABG: pH 7.43, pCO2 34, pO2 68 on 4L NC - CBC: WBC 15, Hb 11, PLT 254 - BMP: Na 139, K 4.1, Cr 1.1, AST 14, ALT 13 - Cardiac: Troponin I <50, proBNP 1041, EKG sinus tachycardia - Procalcitonin: 0.5 - Infectious: Blood cultures NGTD, respiratory panel negative for Covid, Flu, RSV ?? Imaging: - CTA chest: No evidence of pulmonary embolism. Severe bilateral pneumonia. Marked diffuse esophageal wall thickening. Findings could be inflammatory however malignancy not excluded. - CT head w/o contrast: No acute intracranial findings. ?? The patient was initially treated for pneumonia w/ vancomycin & zosyn (later switched to cefepime & azithromycin), steroids (solumedrol -> hydrocortisone) as well as lorazepam CIWA scale for potential alcohol withdrawal. However, over the course of two days, her respiratory status continued to worsen, eventually requiring today. There were increasing concerns over the patient's abilityto protect her airway, given her periods of somnolence & agitation as well as her worsening hypoxia, and therefore the patient was intubated. TTE performed demonstrated severely reduced LV function EF 25%), with intact RV function without WMA. On recheck, her EKG did not demonstrate any ST or T-wave changes, however troponin-I levels had now increased 1686 & pro-BNP >25k. She was started on a heparin gtt, loaded w/ ASA 300 mg, initiated on IV diuresis (80 lasix) & dobutamine withconsequent transfer to [facility]. ?? On arrival, the patient was requiring requiring roughly NE 30, dobutamine 2.5, and epinephrine of 5. Hospital Course: Ishan Irving was admitted to the Cardiology Service on 08/14/2022 and transferred to [facility] on 08/30/2022. The following acute and chronic medical issues were identified during this phase of their hospitalization, and managed as summarized below by problem: #Type II NSTEMI #Mixed cardiogenic and distributive shock #Acute HFrEF 2/2 stress cardiomyopathy Following admission to the CV, a [place] catheter was placed for monitoring of hemodynamic parameters. She initially required epinephrine, norepinephrine, and dobutamine. The following day, her cardiac index decreased and SVR increased, then more consistent with cardiogenic shock than a mixed picture. TTE demonstrated new HFrEF with EF 25% with akinesis of the apex and septum thought to represent a stress cardiomyopathy. Troponin continued to downtrend. A CT coronary scan was completed and did not detect any calcified atherosclerotic plaque burden at which time a LHC was officially deferred. Pressors and dobutamine were eventually downtitrated and stopped. Once out of the [facility] she was started on GDMT including ASA 81mg, Entresto, metoprolol, spironolactone, and empagliflozin. She willrequire a repeat TTE in ~3 months after discharge. A referral to Cardiology was sent on discharge. #Multifocal pneumonia Given continuing coarse breath sounds and volume control ventilation, Zosyn was started. Blood cultures at the OSH did not demonstrate any growth. She completed a course of Zosyn for aspiration pneumonia. Her respiratory status improved over time and she did well on pressure support ventilation. She was noted to have persistent, low grade fevers and leukocytosis. Infectious disease was consulted, and a CT chest was ordered which showed possible cavitating lesions in the left upper posterior lobe. Fungitell was ordered and eventually resulted positive, and bronchoscopy was ordered with BAL fungal cultures growing jacky. However, she had continued to improve off antibiotics and the decisionwas made to defer treatment. Despite persistently depressed mental status, she was extubated to [facility] on 08/23, which she tolerated well. #Bipolar Disorder #Hospital Associated Delirium During her [facility] stay, Ishan remained only intermittently responsive, occasionally moving in response to pain but quite sedated. Neurology was consulted and a workup including CT Head, MRI, and EEG was performed without demonstrating abnormality. Once extubated she remained with some AMS, thought to be secondary to hospital-associated delirium. Patient transferred to [facility] team on 08/30 with stable cardiac condition but ongoing limitations in her responsiveness and demonstrating marked psychomotor slowing. Psychiatry was consulted and patient was started on bupropion for bipolar disorder associated depression which resulted in a dramatic improvement in psychomotor slowing [id number] hours. Her mental status improved significantly over her course and she was discharged fully oriented. She was continued on her home Depakote and Seroquel. #History of Drug-Induced Parkinsonism #Severe Oropharyngeal Dysphagia #Distal Esophageal Dysmotility #GERD complicated by Farrell's Esophagus and Esophagitis Ishan demonstrated severe dysphagia on an MBS obtained by [employer] after extubation. While it was suspected initially that this was parkinsonian in nature given her history of drug-induced parkinsonism,her examination demonstrated no tremor and only very slight cog-wheeling of her upper extremities, raising suspicion for other etiologies. Patient underwent another MBS with dobhoff tube removed after improvement in her psychomotor slowing which demonstrated improvement but ongoing aspiration and accumulation of residue in the distal esophagus that was subsequently refluxed and aspirated, suggesting distal esophageal dysmotility. This corresponds with history from patient and , Antonio, of recurrent food regurgitation at home. GI was consulted however opted to defer repeat endoscopy dueto recent EGD demonstrated known stable stricture. Patient has known history of esophageal stricture for which she is followed by GI. Her Dobhoff was replaced after the second failed MBS. She went for gastrostomy tube placement with IR on 09/11. #DMII, Insulin Dependent Ishan's diabetes proved difficult to control with her tube feeds. Diabetes Management was consulted. At discharge her insulin regimen was 10 units of insulin glargine nightly with NPH 15 units at the start and 6 hours into tube feeds with an aspart sliding scale. Gabapentin was restarted for peripheral neuropathy. #Iron Deficiency Anemia #Anemia of Chronic Disease Ishan was anemic throughout hospitalization. Iron studies showed a mixed picture of anemia of chronic disease as well as iron deficiency. She received a dose of Venofer 300mg and was started on an iron supplement. She required one blood transfusion. #Severe Vitamin D Deficiency #Fragility Fracture Given her recent hip fracture, Endocrinology was consulted. She has many risk factors for future fractures including DMII, history of smoking, alcohol use, PPI use, SSRI use, and a previous fracture.When it is deemed safe for her to swallow, Endocrinology recommends a calcium citrate 1900mg supplement plus vitamin D twice daily. She was started on ergocalciferol 50,000 units weekly for 8 weeks. A DEXA scan was ordered upon discharge. They recommended initiation of an anabolic agent at follow up; zoledronic acid would be contraindicated in the setting of her severe vitamin D deficiency. She was scheduled for Endocrine follow up in November. Procedures: Pertinent diagnostic studies: TTE 08/19: -Left ventricular systolic function is moderately reduced. [...] 08/15/22 there has been no significant change. CT Angiogram Coronary Arteries, 08/27: Coronary calcium score: Left main: Agatston score: 0 Left anterior descending: Agatston score: 0 Left circumflex: Agatston score: 0 Right coronary: Agatston score: 0 TOTAL: Agatston score: 0 Pertinent radiology studies: Results for orders placed or performed during the hospital encounter of 08/14/22 XR Chest One View (Exam End: 08/15/2022 1:00 AM) Narrative EXAMINATION: XR CHEST ONE VIEW CLINICAL HISTORY: 62 yo F w/ suspected PNA vs volume overload, assess for presence of both TECHNIQUE: 1 view of the chest portable supine rotated COMPARISON: None Impression FINDINGS/IMPRESSION: * Moderate pulmonary edema. * No confluent airspace opacity otherwise seen. * Cannot exclude small pleural effusions. * Cardiomediastinal contours appear within normal limits. * Endotracheal tube tip projects 3.8 cm above the consuelo. * RIGHT neck central catheter, distal catheter coiled over the region of the RIGHT ventricle and pulmonary trunk. Thank you for letting us participate in the care of this patient. If you are a health care provider and have any questions regarding this report, please contact the number below. For patients who have questions please contact the health acute care physician that requested your imaging first. Abdomen 1 view (Generic) (Exam End: 08/15/2022 8:33 AM) Narrative EXAMINATION: XR ABDOMEN 1 VIEW (GENERIC) CLINICAL HISTORY: 62 yo F w/ shock, confirm NG tube placement TECHNIQUE: Single radiograph of the lower chest and upper abdomen for purposes of enteric tube verification and otherwise nondiagnostic. The lower abdomen is excluded from [id number]. COMPARISON: Abdominal radiograph 08/15/2022 FINDINGS: * An enteric tube courses below the diaphragm with tip in the expected region of the stomach. Sidehole is not definitively subdiaphragmatic. * Unchanged position of right neck central catheter terminating over the region of the pulmonary trunk. * Endotracheal tube terminates 3.1 cm above the consuelo. Patchy and hazy bilateral airspace opacities compatible with ongoing pulmonary edema. Impression The enteric tube sidehole is not definitively subdiaphragmatic. Recommend advancement. Preliminary report signed by: Carlos Wolff at 08/15/2022 9:00 AM I have personally reviewed the image(s) and the resident's interpretation and agree with the findings, Liliane Adams MD at 08/15/2022 9:05 AM Thank you for letting us participate in the care of this patient. If you are a health care provider and have any questions regarding this report, please contact the number below. For patients who have questions please contact the health acute care physician that requested your imaging first. Electronically signed by: Liliane Adams MD, [facility] ([phone]), at 08/15/2022 9:05 AM XR Chest One View (Exam End: 08/15/2022 1:14 AM) Narrative EXAMINATION: XR CHEST ONE VIEW CLINICAL HISTORY: confirm [place] placement TECHNIQUE: 1 view of the chest COMPARISON: 08/15/2022 Impression FINDINGS/IMPRESSION: * RIGHT neck central catheter redemonstrated terminating over the region of the pulmonary trunk, now uncoiled distally although the tip is looped. * Moderate pulmonary edema redemonstrated. * ET tube projects similar. Thank you for letting us participate in the care of this patient. If you are a health care provider and have any questions regarding this report, please contact the number below. For patients who have questions please contact the health acute care physician that requested your imaging first. Abdomen 1 view (Generic) (Exam End: 08/15/2022 6:38 AM) Narrative EXAMINATION: XR ABDOMEN 1 VIEW (GENERIC) CLINICAL HISTORY: 62 yo F w/ rising lactate, assess for acute intra-abdominal process TECHNIQUE: Supine frontal abdomen COMPARISON: None FINDINGS: Large stool burden within the RIGHT hemiabdomen and pelvis. Overall paucity with scattered bowel air noted within the LEFT hemiabdomen. No abnormally air-dilated bowel loops identified. Cannot assess for potential air fluid levels and or intra-abdominal free air given supine positioning. Lung findings as reported on earlier same day chest radiograph. Impression Nonspecific/nondiagnostic appearance of the abdomen, with large stool burden in the RIGHT hemiabdomen and pelvis. Thank you for letting us participate in the care of this patient. If you are a health care provider and have any questions regarding this report, please contact the number below. For patients who have questions please contact the health acute care physician that requested your imaging first. Chest One View (Exam End: 08/16/2022 10:31 AM) Narrative EXAMINATION: XR CHEST ONE VIEW CLINICAL HISTORY: pa catheter verification, comparison to prior TECHNIQUE: 1 view of the chest COMPARISON: 08/15/2022 FINDINGS: Similar appearance of the right IJ PA catheter, with a loop near the tip. Endotracheal tube is 2.0 cm above the consuelo. Enteric tube in the stomach. Lungs are well-inflated. Interval improvement in previously visualized patchy alveolar opacities, mild persistence primarily at the left base. Cardiac and mediastinal contours unchanged. Impression PA catheter has a persistent loop near the tip, similar to the prior comparison study. Improved pulmonary edema. Thank you for letting us participate in the care of this patient. If you are a health care provider and have any questions regarding this report, please contact the number below. For patients who have questions please contact the health acute care physician that requested your imaging first. Electronically signed by: Alfonso Adams MD, [facility] ([phone]), at 08/16/2022 10:[address] Head wo Contrast (Generic) (Exam End: 08/16/2022 10:44 PM) Narrative EXAMINATION: CT HEAD WO CONTRAST (GENERIC) CLINICAL HISTORY: intubated, minimal responsiveness off sedation TECHNIQUE: CT head performed without intravenous contrast administration. COMPARISON: 08/13/[address] FINDINGS: Review of bone windows demonstrates clear appearance visualized mastoid air cells and middle ear cavities. There is minimal mucosal thickening lateral margin left maxillary antrum. No lytic or blastic disease calvarium. Skull base soft tissues and orbits are unremarkable. There is no intracranial hemorrhage, mass, mass effect, midline shift or extra-axial fluid collection. No cortical infarctions or ventriculomegaly. Impression No acute intracranial abnormality and no change from prior Thank you for letting us participate in the care of this patient. If you are a health care provider and have any questions regarding this report, please contact the number below. For patients who have questions please contact the health acute care physician that requested your imaging first. Electronically signed by: Moustapha Correa MD, [facility] ([phone]), at 08/16/2022 11:19 PM XR Abdomen 1 view (Generic) (Exam End: 08/17/2022 12:09 PM) Narrative EXAMINATION: XR ABDOMEN 1 VIEW (GENERIC) CLINICAL HISTORY: verify DHT placement TECHNIQUE: Single AP portable semiupright radiograph of the abdomen COMPARISON: Radiographs of the abdomen 08/15/2022 FINDINGS: An enteric tube descends below the diaphragm with radiopaque catheter tip in the region of greater curvature. A right approach central catheter terminating in the region of the pulmonary trunk is unchanged in position with a loop is seen.. No dilated loops of large or small bowel. Persistent hazy opacities in the lung bases, slightly worse on the left. No suspicious osseous lesion. No soft tissue abnormalities. Impression Status post Dobbhoff tube placement with catheter tip terminating at the approximate position of greater curvature. I have personally reviewed the image(s) and the resident's interpretation and agree with the findings, Jenn Pina MD at 08/17/2022 2:31 PM Thank you for letting us participate in the care of this patient. If you are a health care provider and have any questions regarding this report, please contact the number below. For patients who have questions please contact the health acute care physician that requested your imaging first. Head wo Contrast (Generic) (Exam End: 08/18/2022 3:14 PM) Narrative EXAMINATION: CT HEAD WO CONTRAST (GENERIC) CLINICAL HISTORY: Mental status change, unknown cause TECHNIQUE: CT Head was performed without contrast COMPARISON: 08/16/2022 FINDINGS: The calvarium is remarkable for hyperostosis frontalis interna, normal variation. Enteric tube extends to the nose. ET tube is seen in the oral cavity. No fractures are identified. No aggressive bone lesions are seen. Mild sinusitis is noted in the sphenoid air cells. Age related atrophy is noted. Ventricular caliber is normal. No intracranial mass, hemorrhage or infarct is identified. No hydrocephalus. Impression No acute intracranial process. Thank you for letting us participate in the care of this patient. If you are a health care provider and have any questions regarding this report, please contact the number below. For patients who have questions please contact the health acute care physician that requested your imaging first. Electronically signed by: Antonio Jordan MD, [facility] ([phone]), at 08/18/2022 3:18 PM XR Chest One View (Exam End: 08/19/2022 12:30 PM) Narrative EXAMINATION: XR CHEST ONE VIEW CLINICAL HISTORY: febrile, altered, leukocytosis TECHNIQUE: 1 view of the chest ; AP portable 20 degrees upright COMPARISON: Chest radiograph 08/16/2022 FINDINGS: ET tube tip measures 3.0 cm above consuelo. Enteric catheter descends below the diaphragm and below the [id number]. Interval removal of right IJ approach PA catheter and sheath. Round external device projects over the upper mediastinum. Patchy bibasilar airspace opacities partially obscuring the hemidiaphragms, increased when compared to 08/16/2022. Overall improved aeration of the upper lungs. No pneumothorax. Small bilateral layering pleural effusions. The cardiomediastinal silhouette and pulmonary vascular markings are within normal limits. Impression 1. Increased bibasilar airspace opacities compared to radiograph 08/16/2022, concerning for an infectious/inflammatory process. A component of edema not excluded. 2. Overall decreased pulmonary edema. I have personally reviewed the image(s) and the resident's interpretation and agree with the findings, Alan De Guzman MD at 08/19/2022 3:14 PM Thank you for letting us participate in the care of this patient. If you are a health care provider and have any questions regarding this report, please contact the number below. For patients who have questions please contact the health acute care physician that requested your imaging first. Electronically signed by: Alan De Guzman MD, [facility] ([phone]), at 08/19/2022 3:14 PM MRI Brain wo Contrast (Exam End: 08/19/2022 10:15 PM) Narrative EXAMINATION: MRI BRAIN WO CONTRAST CLINICAL HISTORY: Mental status change, unknown cause; Not waking up off sedation Mental status change, unknown cause; Not waking up off sedation TECHNIQUE: MRI of the brain performed without intravenous contrast administration. COMPARISON: Head CT 08/18/2022 FINDINGS: Ventricles are normal in size. Basal cisterns are patent. No mass or mass effect. No abnormal restricted diffusion. No evidence of acute cortical infarction. Small areas of T2 prolongation in the periventricular white matter, likely sequela of small vessel disease. No susceptibility related signal loss to suggest microhemorrhage. Normal intracranial intravascular flow voids. The orbits are unremarkable. No abnormal signal in the paranasal sinuses. Trace fluid in the inferior mastoid air cells bilaterally. Partial visualized enteric tube. There is hyperostosis frontalis interna. Normal marrow space signal. Impression No acute infarction, mass or mass effect. Thank you for letting us participate in the care of this patient. If you are a health care provider and have any questions regarding this report, please contact the number below. For patients who have questions please contact the health acute care physician that requested your imaging first. Chest for Verifying Vascular Access PICC Placement At Bedside (Exam End: 08/19/2022 4:36 PM) Narrative EXAMINATION: XR CHEST FOR VERIFYING VASCULAR ACCESS PICC PLACEMENT AT BEDSIDE CLINICAL HISTORY: verify PICC placement TECHNIQUE: AP view COMPARISON: Chest x-ray same date at 12:30 FINDINGS: Right arm approach PICC line with tip in the superior right atrium. Support apparatus otherwise unchanged. Patchy bilateral airspace opacities are unchanged from earlier today. No new pulmonary pathology. Impression PICC tip is in the superior vena cava above the right atrium. Thank you for letting us participate in the care of this patient. If you are a health care provider and have any questions regarding this report, please contact the number below. For patients who have questions please contact the health acute care physician that requested your imaging first. Electronically signed by: Alan De Guzman MD, [facility] ([phone]), at 08/19/2022 4:[address] Hip w Contrast Left (Exam End: 08/20/2022 11:04 PM) Narrative EXAMINATION: CT HIP W CONTRAST LEFT CLINICAL HISTORY: Soft tissue infection suspected, hip, xray done fever of unknown origin, recent hip trauma, r/o infection (per history entered by ordering provider).. TECHNIQUE: CT of the left hip performed after administration of 110 mL Omnipaque 350. Coronal and sagittal reformats were obtained. COMPARISON: CT left left lower extremity 08/08/22. Hip radiograph 09/06/2022, intraprocedural radiograph 08-30. FINDINGS: Bones/joints: Status post left femoral neck fracture ORIF. Hardware is intact with no associated lucency. Femoral neck fracture lines remain faintly visible. Left hip alignment is maintained. No additional fractures. No osseous destruction or osseous erosion. There is marginal osteophyte formation of the left hip, though the left hip joint space is preserved. Unchanged appearance of the pubic symphysis, without widening. Musculature/subcutaneous: Moderate subcutaneous stranding and cutaneous thickening about the lateral left hip, with a focus of more coalescent fluid attenuation measuring 2.3 x 1.6 x 1.8 cm (series 9, image 251 and series 15, image 46), without rim enhancement to suggest an organized abscess. This finding is located roughly at the level of the proximal femoral fixation screw heads. Additionally, there is mild fascial thickening and intramuscular edema about the lateral mid left thigh (example series 8 image 82). Diffuse fatty atrophy, most pronounced about the hamstrings and gluteus asya. No loculated fluid collection or subcutaneous air. Non-musculoskeletal structures: Mcrae catheter and rectal tube in situ. Moderate presacral coalescent edema versus free fluid and in the rectovesical space (series 15, image 241). There is also a large stool ball within the rectum. Normal major vessel enhancement. Impression 1. Uncomplicated left femoral neck ORIF with unchanged postoperative alignment. 2. Moderate skin thickening and subcutaneous stranding about the lateral left hip with lateral left thigh intramuscular edema and fascial thickening. These findings are nonspecific and may be seen in the routine postoperative setting. Underlying soft tissue infection with infectious or inflammatory myositis may also have this appearance. Correlation with physical examination, clinical symptoms, and laboratory findings is recommended. 3. 2.3 x 1.6 x 1.8 cm focus of more coalescent fluid attenuation centered in the subcutaneous fat of the posterolateral thigh roughly at the level of the proximal femoral fixation screw heads. There is no rim-enhancing to suggest a mature, organized abscess at this time. However, this finding could represent phlegmon in appropriate clinical context, or it could represent a postsurgical collection, the contents of which may be sterile or infected. 4. There is a rectal tube in place. However, there remains a large stool ball in the rectum with free fluid versus coalescent edema on both the anterior and posterior margins of the distended rectum. In appropriate clinical context, these findings could represent proctocolitis or stercoral colitis. I have personally reviewed the image(s) and the resident's interpretation and agree with the findings, Aicha Chowdhury MD at 08/21/2022 9:34 AM Thank you for letting us participate in the care of this patient. If you are a health care provider and have any questions regarding this report, please contact the number below. For patients who have questions please contact the health acute care physician that requested your imaging first. Electronically signed by: Aicha Chowdhury MD, [facility] ([phone]), at 08/21/2022 9:[address] Chest w Contrast (Exam End: 08/20/2022 11:04 PM) Narrative EXAMINATION: CT CHEST W CONTRAST CLINICAL HISTORY: Pneumonia, unresolved fever of unknown origin, previous bilateral opacities on cxr, r/o infection TECHNIQUE: Helical CT of the chest after the intravenous administration of contrast, 110 cc of Omnipaque 350 was administered. Thin-section reconstructions as well as coronal and sagittal reformatted images were generated. COMPARISON: Chest radiograph 08/19/2022. CT chest 08/12/2022 FINDINGS: Pulmonary parenchyma: There are patchy and consolidated airspace opacities within the right lower lobe and left lower lobe and to a lesser extent the posterior aspect of the left upper lobe and right upper lobe. These are decreased in size number and extent compared to the prior exam. Interval development of small cavitary lesions within the left lingular segment, posterior left upper lobe and left lower lobe, measuring less than 1 cm in size. Airways: Endotracheal tube tip terminates above the consuelo. Bronchial wall thickening of the bilateral lower lobes. Pleura: No pneumothorax. No pleural effusions. Lymph nodes: Prominent subcarinal and hilar lymph nodes, likely reactive. Heart and vasculature: Normal cardiac size. No pericardial effusion. Normal caliber of the thoracic aorta with widely patent arch origins. No central pulmonary emboli. Right PICC tip terminates at the superior cavoatrial junction. Other mediastinal structures: Enteric tube courses below the diaphragm with tip not included the [id number]. There is some wall thickening of the esophagus. No pneumomediastinum. No mediastinal collections. Lower neck and chest wall soft tissues: No significant findings. Upper abdomen: Curvilinear low-attenuation lesions within the spleen (axial series 4 image 228 and image 264 are new. Unchanged 4 mm low-attenuation lesion in the right liver dome, probable cyst. Partially visualized dilated gallbladder. Enteric tubing is seen within the first portion the duodenum, not fully included in the [id number]. Skeletal structures: No acute osseous findings. No suspicious osseous lesions. Impression 1. Multifocal lower lobe predominant consolidative opacities with additional upper lobe opacities consistent with multifocal pneumonia. Compared to the prior CT of 08/12/2022 the number and size of the opacities has decreased. Recommend follow-up imaging in 3-6 months to document complete resolution. 2. New small, sub-1 cm early cavitation of multiple opacities predominantly within the posterior left upper lobe and left lower lobe. 3. New curvilinear splenic lesions could represent infarct versus late arterial phase splenic arterial opacification. Thank you for letting us participate in the care of this patient. If you are a health care provider and have any questions regarding this report, please contact the number below. For patients who have questions please contact the health acute care physician that requested your imaging first. Ultrasound in IR (Exam End: 08/21/2022 3:09 PM) Narrative IR PROCEDURE NOTE: US-guided drain placement Indication : recent ORIF, now w/ leukocytosis and fever with fluid collection seen lateral to hip on CT Technique: After discussing risks (including infection and hemorrhage), and benefits, patient consented to the procedure. Due to the painful nature of the procedure, split doses of fentanyl were administered by the IR nurse during continuous monitoring of pulse, blood pressure and oxygen saturation. Lesion was localized with US. After sterile preparation of the overlying skin, 6cc 1% lidocaine SQ was administered for anesthesia, and an 18 ga needle was advanced under US guidance into the collection. Scant bloody fluid aspirated, submitted for culture. Patient tolerated the procedure well. There were no immediate complications. Fluoro time: 0 min. Contrast: 0 cc Omni 350. EBL : 0 cc Findings: burgendy 6 cc fluid collection Impression: Technically successful aspiration left hip 2 x 3 cm collection. Attending: I, Dr. Alarcon, was present throughout the procedure. I was present during the intraservice time as documented by the IR Nurse. XR Hip 2-3 Views Left (Exam End: 08/22/2022 12:19 AM) Narrative EXAMINATION: XR HIP 2-3 VIEWS LEFT CLINICAL HISTORY: Concern for hip infection s/p ORIF TECHNIQUE: Left hip AP and lateral COMPARISON: June 12, 2022 FINDINGS: There are three partially threaded cannulated screws in the left femoral neck. Deformity of the neck is secondary to a previous fracture. The fracture line is not clearly seen. There is no destructive lesion of the femur. The joint space of the left hip is intact. No lucency has developed surrounding the screws. There is no adjacent soft tissue gas. There is a large amount of stool in the rectum. A temperature probe is present. Impression No radiographic evidence of infection. Thank you for letting us participate in the care of this patient. If you are a health care provider and have any questions regarding this report, please contact the number below. For patients who have questions please contact the health acute care physician that requested your imaging first. Electronically signed by: Viktor Cervantes MD, [facility] ([phone]), at 08/22/2022 12:43 PM XR Pelvis (Generic) (Exam End: 08/22/2022 12:19 AM) Narrative EXAMINATION: XR PELVIS (GENERIC) CLINICAL HISTORY: concern for hip infection s/p orif TECHNIQUE: 1 views of the pelvis COMPARISON: CT from 08/20/2022 FINDINGS: Unchanged appearance of prior left femoral neck ORIF with slight protrusion of the 3 fixation screws. The fracture alignment and hip joint alignments are unchanged. No abnormal soft tissue density. No osseous erosion. A Mcrae catheter projects in the pelvis. Large dense rectal stool burden. Impression No radiographic evidence of infection status post left hip ORIF. Thank you for letting us participate in the care of this patient. If you are a health care provider and have any questions regarding this report, please contact the number below. For patients who have questions please contact the health acute care physician that requested your imaging first. Electronically signed by: Richard Billings MD, [facility] ([phone]), at 08/22/2022 10:[address] Angiogram Coronary Arteries (Exam End: 08/27/2022 8:58 AM) Narrative EXAMINATION: CT ANGIOGRAM CORONARY ARTERIES CLINICAL HISTORY: Heart failure, known or suspected, initial workup COMPARISON: Chest CT 08/20/2022 TECHNIQUE: 3 mm thick axial contiguous sections through the heart were obtained via ECG-gated axial mode acquisition without intravenous contrast. After time bolus, 0.625 mm thick axial contiguous sections were obtained through the heart via ECG-gated helical acquisition during intravenous administration of 93 cc Omnipaque 350. Post-processing was performed on an independent computer workstation including curved multiplanar reformats, coronary calcium scoring, and 3D reconstructions. FINDINGS: Coronary calcium score: Left main: Agatston score: 0 Left anterior descending: Agatston score: 0 Left circumflex: Agatston score: 0 Right coronary: Agatston score: 0 TOTAL: Agatston score: 0 Atherosclerotic plaque burden, based on Agatston score: No detectable calcified atherosclerotic plaque. Percentile rank, based on age, race/ethnicity, and gender: N/A Reference: Maty RL, Vera H, Amirah R, et al. ??Distribution of coronary artery calcium by race, gender, and age: results from the Multi-Ethnic Study of Atherosclerosis (AVENDANO). Circulation. 2006;113(1):30-37. Coronary arteries: Right dominant coronary circulation. Left main: Normal origin. No demonstrable plaque or stenosis. Left anterior descending: No demonstrable plaque or stenosis. Diagonal branches: No demonstrable plaque or stenosis. Left Circumflex: No demonstrable plaque or stenosis. Obtuse marginal branches: No demonstrable plaque or stenosis. Right coronary: Normal origin. No demonstrable plaque or stenosis. Posterior descending: No demonstrable plaque or stenosis. Posterolateral branch: No demonstrable plaque or stenosis. Cardiac chambers: Central venous catheter ends at the superior cavoatrial junction. Great vessels: No significant findings. Pulmonary parenchyma, airways, pleura: The lungs are incompletely included on this coronary CTA and are better evaluated on chest CT. Of note are persistent consolidative changes in the bilateral lungs, specifically in the left lower lobe. Small amount of mucus in the trachea. Upper abdomen: Incompletely visualized feeding tube along the esophagus and stomach. Very small hiatal hernia. Subcentimeter liver cyst at the dome. Skeletal Structures: No significant findings. Impression Coronary calcium score of 0, consistent with no detectable calcified atherosclerotic plaque burden. No evidence of stenosing soft plaque on the coronary CT arteriogram. CAD RADS 0 Ongoing bilateral pulmonary infectious/inflammatory changes with persistent consolidative opacity especially in the left lower lobe. This could represent a multifocal pneumonia. Recommend follow-up CT in 3 months to assess for resolution. Thank you for letting us participate in the care of this patient. If you are a health care provider and have any questions regarding this report, please contact the number below. For patients who have questions please contact the health acute care physician that requested your imaging first. Electronically signed by: Arlette Mays MD, [facility] ([phone]), at 08/27/2022 11:[address] Chest wo Contrast (Generic) (Exam End: 08/27/2022 8:58 AM) Narrative EXAMINATION: CT CHEST WO CONTRAST (GENERIC) CLINICAL HISTORY: Pneumonia, unresolved Looking to see resolution of multifocal PNA. Please time with coronary CTA if possible TECHNIQUE: Helical CT of the chest without intravenous contrast administration. Thin-section reconstructions as well as coronal and sagittal reformatted images were generated. COMPARISON: CT chest 08/20/2022 FINDINGS: Pulmonary parenchyma: Multifocal patchy and consolidative airspace opacities greatest in the bilateral lower lobes are stable from the previous exam. No new or enlarging opacities. The small cavitary areas are less conspicuous. Airways: Adherent mucus throughout the trachea. Pleura: No effusion. Lymph nodes: Stable mediastinal lymph nodes which are likely reactive. Heart and vasculature: Normal size of the heart. No significant pericardial effusion. Normal caliber of the thoracic aorta. Right upper extremity PICC with tip at the superior cavoatrial junction. Other mediastinal structures: Small hiatal hernia. Unchanged esophageal wall thickening, recently evaluated by endoscopy which demonstrated inflammation. Upper abdomen: Partially imaged enteric catheter reaching the duodenum. Cholelithiasis. Stable hepatic cyst. Skeletal structures: No significant findings. Impression Stable findings of multifocal pneumonia. No interval abnormality. Thank you for letting us participate in the care of this patient. If you are a health care provider and have any questions regarding this report, please contact the number below. For patients who have questions please contact the health acute care physician that requested your imaging first. Electronically signed by: MINH QUIROGA MD, [facility] ([phone]), at 08/27/2022 10:48 AM XR Fluoro Barium Swallow (Modified/Video Swallow Pharynx) (Exam End: 08/31/2022 11:23 AM) Narrative EXAMINATION: XR FLUORO BARIUM SWALLOW (MODIFIED/VIDEO SWALLOW PHARYNX) CLINICAL HISTORY: recently intubated, f/u concern for aspiration TECHNIQUE: The examination was performed in conjunction with speech pathology. Varying consistencies of barium were administered under lateral fluoroscopic observation. Fluoro time: 2.32 minutes. COMPARISON: None FINDINGS: A feeding tube is present. The oral phase of swallowing is normal. The swallow is globally, subjectively weak. There is delayed elevation of the larynx long term between the vallecula and piriform sinuses. It is a bit more timely with pudding consistency then with thin or nectar. The epiglottis does not fully invert with thin or nectar consistency but does invert with pudding thick although delayed. There is laryngeal penetration and aspiration with thin consistency. There is penetration and pooling with nectar consistency. With pudding consistency there is more complete epiglottic inversion and a slightly more rapid swallow trigger but there is pooling with delayed aspiration of the pooled material. Impression Abnormal modified barium swallow as above. Please see speech pathology report for further discussion. Thank you for letting us participate in the care of this patient. If you are a health care provider and have any questions regarding this report, please contact the number below. For patients who have questions please contact the health acute care physician that requested your imaging first. Electronically signed by: Aron Billings MD, [facility] ([phone]), at 08/31/2022 12:02 PM XR Fluoro Barium Swallow (Modified/Video Swallow Pharynx) (Exam End: 09/04/2022 10:25 AM) Narrative EXAMINATION: XR FLUORO BARIUM SWALLOW (MODIFIED/VIDEO SWALLOW PHARYNX) CLINICAL HISTORY: Previous MBS demonstrated significant oropharyngeal dysphagia, clinical condition improved markeldy, reassess Is dysphagia improving? TECHNIQUE: The examination was performed in conjunction with speech pathology. Varying consistencies of barium were administered under lateral fluoroscopic observation. Fluoro time: 2.48 minutes COMPARISON: Modified barium swallow 09/01/2019 FINDINGS: The oral phase of swallowing is normal. There is normal elevation of the larynx and slight delay in epiglottic inversion with swallowing. There is penetration of the airway and aspiration with thin liquids. This is especially apparent with rapid sips of thin barium. There is also flash penetration of the airway with nectar thick liquids from a straw. There is pooling of barium within the valleculae which does not fully clear with dry swallows. Residual barium within the esophagus is seen refluxing with swallows toward the end of the study. Impression 1. Penetration of the airway and aspiration with thin liquids, especially with rapid sips of thin barium. 2. Flash penetration of nectar thick liquids from a straw. 3. Reflux of residual barium within the esophagus on multiple swallows. I have personally reviewed the image(s) and the resident's interpretation and agree with the findings, Alfonso Adams MD at 09/04/2022 10:57 AM Thank you for letting us participate in the care of this patient. If you are a health care provider and have any questions regarding this report, please contact the number below. For patients who have questions please contact the health acute care physician that requested your imaging first. Electronically signed by: Alfonso Adams MD, [facility] ([phone]), at 09/04/2022 10:57 AM XR Abdomen 1 view (Generic) (Exam End: 09/04/2022 9:47 PM) Narrative EXAMINATION: XR CHEST ONE VIEW, XR ABDOMEN 1 VIEW (GENERIC) CLINICAL HISTORY: For mid NGT check, verify NG tube placement TECHNIQUE: 1 view of the chest , single image at 2136 hours. Portable abdominal radiograph single image at 2139 hours COMPARISON: CT chest 08/27/2022. Chest radiograph 08/19/2022 FINDINGS: Chest radiograph: Enteric tube is present with tip projecting superior to the consuelo with coiled appearance likely within the esophagus given the course of the tube lateral to the tracheal air column. Right PICC tip projects over the superior cavoatrial junction. EKG leads project over the thorax. There is mild elevation of the right hemidiaphragm. Decreased conspicuity of reticular and small patchy opacities throughout the lungs compared to prior radiograph 08/19/2022. There are persistent small patchy opacities at the left lung base and streaky opacities at the right lung base. No overt edema. No pneumothorax. No pleural effusions. Normal size of the cardiomediastinal silhouette and [place]. No acute osseous findings. Abdominal radiograph: Enteric tube projects below the diaphragm with tip partially visualized projecting over the mid abdomen. No gaseous distention of the stomach. Contrast material within nondilated large bowel. Impression 1. On the chest radiograph at 2136 hours the enteric tube projects over the mid esophagus. On the abdominal radiograph at 2139 hours the enteric tube now projects below the diaphragm with tip partially visualized projecting over the left mid abdomen. 2. Lower lobe predominant patchy and reticular airspace opacities consistent with sequela of multifocal pneumonia. The appearance is improved compared to prior radiograph. Thank you for letting us participate in the care of this patient. If you are a health care provider and have any questions regarding this report, please contact the number below. For patients who have questions please contact the health acute care physician that requested your imaging first. Chest One View (Exam End: 09/04/2022 9:47 PM) Narrative EXAMINATION: XR CHEST ONE VIEW, XR ABDOMEN 1 VIEW (GENERIC) CLINICAL HISTORY: For mid NGT check, verify NG tube placement TECHNIQUE: 1 view of the chest , single image at 2136 hours. Portable abdominal radiograph single image at 2139 hours COMPARISON: CT chest 08/27/2022. Chest radiograph 08/19/2022 FINDINGS: Chest radiograph: Enteric tube is present with tip projecting superior to the consuelo with coiled appearance likely within the esophagus given the course of the tube lateral to the tracheal air column. Right PICC tip projects over the superior cavoatrial junction. EKG leads project over the thorax. There is mild elevation of the right hemidiaphragm. Decreased conspicuity of reticular and small patchy opacities throughout the lungs compared to prior radiograph 08/19/2022. There are persistent small patchy opacities at the left lung base and streaky opacities at the right lung base. No overt edema. No pneumothorax. No pleural effusions. Normal size of the cardiomediastinal silhouette and [place]. No acute osseous findings. Abdominal radiograph: Enteric tube projects below the diaphragm with tip partially visualized projecting over the mid abdomen. No gaseous distention of the stomach. Contrast material within nondilated large bowel. Impression 1. On the chest radiograph at 2136 hours the enteric tube projects over the mid esophagus. On the abdominal radiograph at 2139 hours the enteric tube now projects below the diaphragm with tip partially visualized projecting over the left mid abdomen. 2. Lower lobe predominant patchy and reticular airspace opacities consistent with sequela of multifocal pneumonia. The appearance is improved compared to prior radiograph. Thank you for letting us participate in the care of this patient. If you are a health care provider and have any questions regarding this report, please contact the number below. For patients who have questions please contact the health acute care physician that requested your imaging first. Chest One View (Exam End: 09/05/2022 9:24 AM) Narrative EXAMINATION: XR CHEST ONE VIEW CLINICAL HISTORY: aspiration suspected aspiration suspected with placement of feeding tube, please eval for evidence of such TECHNIQUE: 1 view of the chest COMPARISON: Chest x-ray 08/27/2022 FINDINGS: Right PICC line tip difficult to visualize though followed into the region of the distal SVC as on prior. Repositioning of enteric tube now extending below the diaphragm and included [id number]. Similar appearance of mild elevation of the right hemidiaphragm with streaky right basilar opacities and some mild patchy opacities at the left lung base. No new focal airspace opacity. No appreciable pleural fluid collection. No pneumothorax. Cardiomediastinal silhouette is unchanged. No evidence of pulmonary edema. No acute osseous abnormality. Impression 1. Reposition enteric tube now extending below the diaphragm and included [id number]. 2. Similar appearance of elevated right hemidiaphragm and linear/patchy bibasilar opacities which may represent atelectasis or possibly aspiration. Thank you for letting us participate in the care of this patient. If you are a health care provider and have any questions regarding this report, please contact the number below. For patients who have questions please contact the health acute care physician that requested your imaging first. Electronically signed by: AUDI PERDOMO MD, [facility] ([phone]), at 09/05/2022 3:43 PM XR Abdomen 1 view (Generic) (Exam End: 09/10/2022 1:04 AM) Narrative EXAMINATION: XR ABDOMEN 1 VIEW (GENERIC) CLINICAL HISTORY: confirm dobhoff tube placement TECHNIQUE: Single supine abdominal radiograph COMPARISON: 08/27/2022, 08/17/2022 FINDINGS: Double with tip projecting over the pyloric region. Enteric contrast opacifies the colon, reaching the level of the mid descending colon. Partially visualized left femoral neck fixation screws. No acute osseous abnormality. Impression Dobbhoff with tip at the level of the pyloric region. I have personally reviewed the image(s) and the resident's interpretation and agree with the findings, Camille Garcia MD at 09/10/2022 1:16 AM Thank you for letting us participate in the care of this patient. If you are a health care provider and have any questions regarding this report, please contact the number below. For patients who have questions please contact the health acute care physician that requested your imaging first. Electronically signed by: Camille Garcia MD, [facility] ([phone]), at 09/10/2022 1:16 AM IR G-Tube Placement (Exam End: 09/11/2022 5:19 PM) Narrative IR PROCEDURE NOTE ?? Procedure: Gastrostomy tube placement. ?? Indication for Procedure:Per Ishan Zarate??is a 62 y.o.??female??with history of left femoral neck fracture, bipolar, alcohol use disorder, chronic pancreatitis, GERD complicated by esophagitis and Farrell's esophagus admitted with mixed shock with concern for stress cardiomyopathy with dysphagia noted postintubation failing modified barium swallow tests. ??Patient referred for percutaneous gastrostomy catheter placement with IR after failed endoscopic attempt due to esophageal stricture. ?? Procedure events and findings:??Patient was positioned supine on the procedure table under anesthesia. Prophylactic antibiotic Ancef 2g IV was administered. ??The epigastrium was prepared in sterile fashion after U/S to determine the left lateral and caudal??extent of the liver. ??Maximum sterile barrier technique was used throughout. ??A 4 Bulgarian glide catheter??was placed??as a??nasoenteric tube??under fluoroscopy with the aid of a Glidewire. ??Catheter was??used for insufflation of the stomach. ?? The skin over the stomach was infiltrated with 1% lidocaine for local anesthesia. ??An 18 ga needle was advanced under fluoroscopic guidance into the stomach with return of air and contrast injection showing gastric folds. ??A T anchor was deployed. ??Two additional T anchors were placed in the same manner. ??In the triangle formed by the T anchors, an 18ga needle was directed into the gastric lumen, confirmed with aspiration and contrast injection. ? Over an 0.035?guidewire, the tract was dilated using an 8 mm angioplasty balloon. A 16 Fr balloon retained gastrostomy tube was then placed. ??The retention balloon of the gastrostomy tube was filled with 5 cc of sterile water and contrast injection via the gastrostomy tube??confirmed location within the gastric lumen. ?? Medications: 1% Lidocaine 20ccs subcutaneous, and as per Anesthesia. Antibiotic Prophylaxis: Ancef 2 g IV. ?? Est Blood Loss: <5cc. ?? Complications: No immediate. ?? Impression: ?? 1. Placement of 16 Fr balloon retained nonlow-profile gastrostomy tube, ready for use. ?? 2. Gastric retention anchors to be released in 7 to 10 days. ?? Resident/Fellow: None. ?? Attending: Dr. Hailey Meredith performed this procedure. XR Hip 2-3 Views Left (Exam End: 09/14/2022 10:02 PM) Narrative EXAMINATION: XR HIP 2-3 VIEWS LEFT CLINICAL HISTORY: Please include entire implant, s/p CMN TECHNIQUE: 2 views of the LEFT hip COMPARISON: Radiographs of the left hip 08/21/2022 FINDINGS: Unchanged appearance of 3 partially threaded cannulated screws in the femoral neck. Hardware is intact . No periprosthetic lucency or fracture. Remainder of the visualized bones are intact. Short femoral neck is redemonstrated. No collapse of femoral head. The hip joint space is preserved. No soft tissue abnormalities. Impression 1. Healed left femoral neck fracture with short femoral neck 2. Maintained post reduction alignment and no hardware complications. I have personally reviewed the image(s) and the resident's interpretation and agree with the findings, Jeny Ken MD at 09/15/2022 9:44 AM Thank you for letting us participate in the care of this patient. If you are a health care provider and have any questions regarding this report, please contact the number below. For patients who have questions please contact the health acute care physician that requested your imaging first. Film Library- Storage Only CT Chest (Exam End: 08/12/2022 12:00 AM) Narrative This exam is auto-finalizing. It's purpose is for storage only. Film Library- Storage Only CT Head (Exam End: 08/13/2022 12:00 AM) Narrative This exam is auto-finalizing. It's purpose is for storage only. Film Library- Storage Only DX Chest (Exam End: 08/12/2022 12:05 AM) Narrative This exam is auto-finalizing. It's purpose is for storage only. Film Library- Storage Only DX Lower Extremity (Exam End: 08/08/2022 12:05 AM) Narrative This exam is auto-finalizing. It's purpose is for storage only. Film Library- Storage Only DX Pelvis (Exam End: 08/08/2022 12:10 AM) Narrative This exam is auto-finalizing. It's purpose is for storage only. Film Library- Storage Only DX Chest (Exam End: 08/14/2022 12:00 AM) Narrative This exam is auto-finalizing. It's purpose is for storage only. Film Library- Storage Only DX Chest (Exam End: 08/08/2022 12:15 AM) Narrative This exam is auto-finalizing. It's purpose is for storage only. Microbiology: BAL Fungal culture, 08/21: rare jacky albicans. Positive fungitell. Negative blood cultures x2, 08/19. Discharge Conditions/Prognosis: Upon discharge the pt is hemodynamically stable, fully ambulatory without requiring supplemental oxygen, afebrile and pain free controlled with stable oral regimen. Discharge to: rehab Discharge Medications: Your Medications New Medications Dose Details atorvastatin 80 mg tablet Commonly known as: Lipitor 1 tablet by Per G Tube route every evening. 80 mg Quantity: 90 tablet Refills: 3 buPROPion 100 mg tablet Commonly known as: Wellbutrin 1 tablet by Per G Tube route daily. 100 mg Quantity: 90 tablet Refills: 3 empagliflozin 10 mg tablet Commonly known as: Jardiance Take 1 tablet by mouth daily. 10 mg Quantity: 90 tablet Refills: 3 ergocalciferoL (vitamin D2) 200 mcg/mL (8,000 unit/mL) Drops Commonly known as: vitamin D2 6.25 mLs by Per G Tube route once a week for 3 doses. Start taking on: September 29, 2022 50,000 Units Quantity: 18.75 mL Refills: 0 ferrous sulfate 300 mg (60 mg iron)/5 mL Liquid 5 mLs by Per G Tube route every other day. Start taking on: September 26, 2022 300 mg Quantity: 150 mL Refills: 12 folic acid 1 mg tablet Commonly known as: Vitamin B9 1 tablet by Per G Tube route daily. 1,000 mcg Quantity: 90 tablet Refills: 3 gabapentin 300 mg capsule Commonly known as: Neurontin 1 capsule by Per G Tube route 3 times daily. 300 mg Quantity: 90 capsule Refills: 12 insulin glargine-yfgn 100 unit/mL Solution Commonly known as: Semglee Inject 10 Units subcutaneously nightly. 10 Units Quantity: 5 mL Refills: 3 metoprolol succinate XL 50 mg ER 24 hr tablet Commonly known as: Toprol-XL Take 1 tablet by mouth daily. 50 mg Quantity: 30 tablet Refills: 12 sacubitriL-valsartan 24-26 mg tablet Commonly known as: Entresto 1 tablet by Per G Tube route 2 times daily. 1 tablet Quantity: 60 tablet Refills: 3 spironolactone 25 mg tablet Commonly known as: Aldactone Take 0.5 tablets by mouth daily. 12.5 mg Quantity: 45 tablet Refills: 3 valproate 250 mg/5 mL (5 mL) Solution Commonly known as: Depakene 6 mLs by Per G Tube route every 6 hours. 300 mg Quantity: 600 mL Refills: 3 Continued medications with new dosing Dose Details insulin aspart U-100 100 unit/mL (3 mL) Insulin Pen Commonly known as: NovoLOG FlexPen U-100 Insulin Check your blood sugar 6 hours and 12 hours into your feed. If your blood sugars are elevated, givenovolog based on the following scale: 150-170: 1 unit; 171-190 GIVE 2 units; 191-210 GIVE 3 units; 211- 230 GIVE 4 units; 231-250 GIVE 5 units; >250 GIVE 6 units What changed: ?? how much to take ?? how to take this ?? when to take this ?? additional instructions Quantity: 12 mL Refills: 12 insulin isophane- NPH 100 unit/mL (3 mL) Insulin Pen Administer 15 units at start of your feed and 15 units 6 hours into your feed What changed: ?? how much to take ?? how to take this ?? when to take this ?? additional instructions Quantity: 10 mL Refills: 12 Continued medications, unchanged Dose Details blood sugar diagnostic strips Strip Commonly known as: OneTouch Ultra Test 1 each by Other route 3 times daily. by Other route. 1 box = 100 test strips; 3 boxes = 300 test strips. 1 each Quantity: 300 each Refills: 3 blood-glucose meter Kit Commonly known as: OneTouch Ultra2 Meter by Other route. 1 = one blood glucose meter kit. Quantity: 1 each Refills: 0 insulin needles (disposable) 31 gauge x 3/16 Needle Commonly known as: BD Ultra-Fine Mini Pen Needle 1 Device by [facility]Non-Drug; Combo Route) route 3 times daily as needed. 1 Device Quantity: 100 each Refills: 11 lancets 33 gauge Mis Commonly known as: One Touch Delica 1 each by Other route 3 times daily. by Other route. 1 box = 100 test strips; 3 boxes = 300 test strips. 1 each Quantity: 300 each Refills: 3 pantoprazole EC [address] tablet Commonly known as: Protonix Take 1 tablet by mouth 2 times daily. 40 mg Quantity: 180 tablet Refills: 3 QUEtiapine 50 mg tablet Commonly known as: SEROquel Take 50 mg by mouth daily. 50 mg Refills: 0 sucralfate 1 gram tablet Commonly known as: Carafate Take 1 tablet by mouth 4 times daily. 1 g Quantity: 360 tablet Refills: 3 STOPPED Medications divalproex ER 250 mg ER 24 hr tablet Commonly known as: Depakote ER divalproex ER 500 mg ER 24 hr tablet Commonly known as: Depakote ER Instructions Given to Patient at Discharge: Patient Instructions Instruction after leaving the hospital Why you were hospitalized: You came into the hospital for shock secondary to decreased heart function. After a prolonged hospitalization, and the placement of a G tube to ensure you can maintain yournutrition, you were discharged home to family support. - please start the medications the medications prescribed at discharge. These will help keep your heart healthy. You will be scheduled for a follow up appointment with cardiology - continue your tube feeds - follow the insulin regimen noted below Call your doctor or seek medical attention if you develop the following: Call your doctor or seek medical attention if you experience any alarming symptoms. This may include, but is not limited to, fever, chest pain, severe shortness of breath, nausea with vomiting, persistent decrease in your urinary output, severe pain, or any other concerning symptoms. Activity level: As tolerated. Shower/Bath: No new restrictions. Home Oxygen therapy: N/A Changes in Your Medications: New Medications: Medication dose changes: Stop these medications: Follow-Up Appointments Future Appointments Date Time Provider Department Center 11/12/2022 11:30 AM Dixie Tadeo MD [facility] ENDO [facility] Date and Time Provider and Specialty Location Need to be scheduled Chris Stanley APRN , PCP [address] / [facility] [address] Your Inpatient Doctor(s) at [facility]: Jose Mcleod MD Your Primary Care Provider: Chris Stanley APRN [address] / [facility] [address] For questions regarding this document or issues relating to this hospitalization on the Medical Service, please contact your inpatient physician through the [facility] Hat [employer] Machine Feeder . Issues afterhours and on weekends will be handled by the Hospitalist staff on-call. General Instructions Discharge Instructions for Feeding Tube Care You [...] the tube and injury to your intestine. __X * If you have the NON Low [...] or its attachments. INTERVENTIONAL RADIOLOGY PHONE NUMBERS [phone] ___X___ If you have a NON Low profile feeding tube, call with any questions or concerns. During regular office hours call: [phone]. If it is after regular office hours, weekends or holidays, please call [phone] and ask to speak to the Bank Officer compressor station operator for Interventional Radiology. Revised 02/23/19 YOU ARE SCHEDULED FOR A FOLLOW UP APPOINTMENT WITH YOUR PRIMARY CARE PROVIDER, CHRIS STANLEY APRN, ON 10/02/2022 AT 11:00AM PLAN FOR BLOOD SUGAR MANAGEMENT AT DISCHARGE 1. A member from the glucose [...] to cover the carbohydrates in your feed. HOLD NPH IFFEED IS HELD. Administer 15 units at start of your [...] avoid another low BG in the future. [facility] INTERVENTIONAL RADIOLOGY NURSES NOTE FOR GASTROPEXY [...] may involve one or more the following: ??? Temperature equal to or greater than 101 degrees Fahrenheit. ??? Swelling and redness in or around the wound. ??? Red streaks on your skin near the wound. ??? Foul smelling or purulent drainage from the wound. ??? Shaking chills. ??? If you suspect an infection related to your procedure please contact your healthcare provider. When to call the Interventional Radiology Department: Please call with any questions or concerns. If it is during regular office hours, please call [phone]. If it is after regular office hours, or on weekends or holidays, please call [phone] and ask to speak to the Bank Officer compressor station operator for Interventional Radiology. Revised 02/23/19 Future Appointments and Orders Future Appointments and Orders Future Appointments Provider Department Dept Phone 11/12/2022 11:30 AM Dixie Tadeo MD Endocrinology at [facility] Arrive at: Newspaper Editor Managing Area 3A [phone] Future Orders Complete By Expires XR Pelvis and Hip 2 Views Left [48498 Custom] 09/09/2022 (Approximate) 03/11/2023 Process Instructions: Scheduling Instructions: Comments: Questions: Where will study be performed?: [facility] Radiology Portable exam?: Reason for exam and clinical history: s/p perc fixation L FNF @[facility], being referred to arthroplasty team for consideration of KYUNG Clinical information / fam questions for radiologist: Stat read required?: Date of injury if applicable: Requested Time: Referral for Home Tube feeds [[id number] CPT(R)] As directed Process Instructions: Scheduling Instructions: Comments: Ishan Irving [address] [place] [phone] (home) - Telephone Information: Medicaid Yes/No Medicaid Number: [id number] Narrative: Patient has a feeding tube and requires tube feedings and supplies necessary to maintainnutritional support . VENDOR: [employer] Supporting Diagnosis: esophageal stricture Length of Need: indefinitely Number of Refills :12 ( needs to be a number from 0-12) Patient's: Hgt: Ht Readings from Last 1 Encounters: 08/16/22 : 152.4 cm (5') ? Wgt: Wt Readings from Last 1 Encounters: 09/17/22 : 64.4 kg (142 lb) Formula Ordered:Nutren Formula Volume/Rate/Feeding Schedule:72 ml per hour for 14 hours from 0600 - 2000 Kcal/ day provided: 1512 ( must show Kcal for feed and Kcals for Modular additives ) Choose one of the following and delete the others ResourceBeneProtein Other: 2 #scoops/day Free Water, if applicable: 770 Feeding Tube Flushes: normal saline, four times daily after medications, 30 ml Dressings at Tube site: Yes Feeding Tube Type: G tube Connection Type: Standard Method of Administration: Pump w/IV pole Questions: Vendor / contact information: [facility] Patient location post discharge: home Service requested: Tube feeds Start date: Responsible MD post discharge contact info: PCP Referral to Cardiology [REF12 Custom] As directed Process Instructions: If no progress note charted, please enter Clinical details in comments. Scheduling Instructions: Questions: My question or request is: 62F with stress cardiomyopathy Referral to Home Health [REF34 Custom] As directed Process Instructions: If no progress note charted, please enter Clinical details in comments. Scheduling Instructions: Comments: Please evaluate Ishan Irving for admission to Home Health. [address] [facility] [id number] Date of : 1960 Inpatient DOCUMENTATION FOR VNA SERVICES (INCLUDING THOSE PATIENTS WITH MEDICARE COVERAGE REQUIRING HOME VNA SERVICES AND/OR HOSPICE SERVICES) PATIENT'S LOCATION: Ishan Irving [address] [facility] [id number] (home) Cell: Telephone Information: Orchard Sprayer's Name: Lee Gasca In discussion with the attending physician, it is certified that this patient is under their care and that they, or a Nurse Practitioner,Clinical Nurse specialist or Physician Summer Intern who is working directly with them, had a face to face encounter that meets the physician face to face encounter requirements with this patient on 09/25/22 (MD please enter DC date here) The encounter with the patient was in whole, or in part, for the following medical condition, whichis the primary reason for home health care services: cardiogenic shock In discussion with the provider, it is certified that, based on their findings, the following services are medically necessary for home health services. To provide the following care/treatments with the clinical findings supporting the need for services as follows: HOME CARE ORDERS: Please add SW. RN ORDERS:Assess wound or incision, vital signs, cardiopulmonary status, nutrition, hydration, elimination, meds effectiveness and management; reinforce education re health issues PT ORDERS: Continue rehab for endurance, gait stability and strength with mobility and transfers. Home safety evaluation. Home exercise program if appropriate. OT: assess and continue rehab for managing ADL's. HOME HEALTH CARE AGENCY: [facility]. [address] [place] [id number] Start of care: 24-48 hours post DC FOR MEDICARE ONLY: (please delete this section if not Medicare) In discussion with the attending physician, it is certified that the clinical findings support thatthis patient is homebound because absences from home require considerable and taxing effort due to:Patient is unable to leave home without assistance and ambulation is severely limited by pain, decreased strength and/or endurance., Patient is unable to leave home unassisted and experiences shortness of breath and fatigue severely limiting ambulation distance., and Medically contraindicated due to immunosuppression and increased risk of infection Please note that any additional orders needs or changes will need to be obtained from this patient's PCP: Chris Stanley APRN [address] / [facility] [address] All VNA agencies which cover the area of patient's residence have been reviewed, either verbally terrence writing, and patient/family have chosen the home health care agency noted Questions: Disciplines Requested: Physical Therapy Occupational Therapy Nursing Provider Contact Information: Chris Stanley APRN [address] / [facility] [address] Discharge References/Attachments: Discharge References/Attachments None documented in this encounter Discharge Instructions * Discharge Instructions* Abby Peter RN - 09/11/2022 4:51 PM EDT Discharge Instructions for Feeding Tube Care You [...] the tube and injury to your intestine. __X * If you have the NON Low [...] or its attachments. INTERVENTIONAL RADIOLOGY PHONE NUMBERS [phone] ___X___ If you have a NON Low profile feeding tube, call with any questions or concerns. During regular office hours call: [phone]. If it is after regular office hours, weekends or holidays, please call [phone] and ask to speak to the Bank Officer compressor station operator for Interventional Radiology. Revised 02/23/19 YOU ARE SCHEDULED FOR A FOLLOW UP APPOINTMENT WITH YOUR PRIMARY CARE PROVIDER, CHRIS STANLEY APRN, ON 10/02/2022 AT 11:00AM PLAN FOR BLOOD SUGAR MANAGEMENT AT DISCHARGE 1. A member from the glucose [...] to cover the carbohydrates in your feed. HOLD NPH IFFEED IS HELD. Administer 15 units at start of your [...] avoid another low BG in the future. [facility] INTERVENTIONAL RADIOLOGY NURSES NOTE FOR GASTROPEXY [...] is during regular office hours, please call [phone]. If it is after regular office hours, or on weekends or holidays, please call [phone] and ask to speak to the Bank Officer compressor station operator for Interventional Radiology. Revised 02/23/19 * Patient Instructions* Jose Mcleod MD - 09/25/2022 10:53 AM EDT Instruction after leaving the hospital Why you were hospitalized: You came into the hospital for shock secondary to decreased heart function. After a prolonged hospitalization, and the placement of a G tube to ensure you can maintain yournutrition, you were discharged home to family support. - please start the medications the medications prescribed at discharge. These will help keep your heart healthy. You will be scheduled for a follow up appointment with cardiology - continue your tube feeds - follow the insulin regimen noted below Call your doctor or seek medical attention if you develop the following: Call your doctor or seek medical attention if you experience any alarming symptoms. This may include, but is not limited to, fever, chest pain, severe shortness of breath, nausea with vomiting, persistent decrease in your urinary output, severe pain, or any other concerning symptoms. Activity level: As tolerated. Shower/Bath: No new restrictions. Home Oxygen therapy: N/A Changes in Your Medications: New Medications: Medication dose changes: Stop these medications: Follow-Up Appointments Future Appointments Date Time Provider Department Center 11/12/2022 11:30 AM Dixie Tadeo MD [facility] ENDO [facility] Date and Time Provider and Specialty Location Need to be scheduled Chris Stanley APRN , PCP [address] / [facility] [id number] Your Inpatient Doctor(s) at [facility]: Jose Mcleod MD Your Primary Care Provider: Chris Stanley APRN [address] / [facility] [id number] For questions regarding this document or issues relating to this hospitalization on the Medical Service, please contact your inpatient physician through the [facility] Hat Forming Machine Feeder . Issues afterhours and on weekends will be handled by the Hospitalist staff on-call. documented in this encounter Medications at Time [...] meter kit. 1 each 0 12/14/2014 Insulin Sidney, Disposable, (BD INSULIN PEN NEEDLE UF MINI) [...] as of this encounter Progress Notes * Leann Harding RN - 09/25/2022 11:21 AM EDT Reviewed all discharge instructions/paperwork with patient and of patient. All belongings taken home PEG tube intact and tube feeds stopped and water flush 50 mls and capped. Patient assistedto dress and transferred to W/C with push to discharge lounge. Assisted to personal vehicle for family to transport her home. VSS and WNL and patient denies any discomfort at time of D/C. Only open skin area is PEG site with C/D/I split gauze to site. Left hip surgical site newly healed and scar tosite. PIV site asymptomatic with 2x2 and tape to site. Medical equipment for tube feeds and belongings taken to personal vehicle. Room inspected one last time for any belongings. denies any qu estions and has contact augie phillipsin the event he has any questions or concerns once home. * Jose Mcleod MD - 09/25/2022 10:44 AM EDT Hospital Medicine - Attending Day of Discharge Documentation Discharge diagnosis Active Hospital Problems Diagnosis ??? Bipolar disorder ??? T2DM (type 2 diabetes mellitus) Resolved Hospital Problems Diagnosis Date Resolved ??? Shock 08/22/2022 Secondary Issues Active Non-Hospital Problems Diagnosis ??? Neuroleptic-induced parkinsonism ??? BMI 37.0-37.9, adult ??? GERD (gastroesophageal reflux disease) ??? Farrell's esophagus I have personally seen and examined the patient and they are ready for discharge. I spent >30 minutes (Day of Discharge Code 43880) involved in the final examination of the patient, discussion of the hospital stay, instructions for continuing care to all relevant caregivers, and preparation of discharge records, prescriptions and referral forms. Plans ? Discharge to home ? Follow-up scheduled with PCP ? Please see the Discharge Summary for complete details of any medication changes and additional plans. * Elsie Erickson APRN - 09/25/2022 7:40 AM EDT Follow Up Diabetes Consult Patient Interview Blood glucose values and insulin use reviewed. Discharging to home today on Cycled tube feed, current formula Nutren 1.5 cycled for 14 hours during the day. She has sips and chips for comfort. Since transitioning to this tube feed, with 176 grams CHO per L, and a total of 177 grams CHO, lantus has been added back for blood glucose control. For the last 2 days she has required close to 40 units ofinsulin. Scheduled for IR this am for removal of retention anchors for her G tube prior to discharge. Objective Temp: [36.4 ??C (97.5 ??F)-36.9 ??C (98.4 ??F)] Heart Rate: -- Resp: [15-16] BP: (110-117)/(50-59) SpO2: [92 %-95 %] Heart Rate from SpO2: [63 bpm-78 bpm] Current Regimen from previous note Lantus:10 units pm Lispro for correction q 4 hours based on a correction factor of 20 Diet TF Nutren 1.5 running at 72mls/hr x 14 hrs Monitoring: Q4 ?? Recent Glucose Levels Recent Labs 09/25/22 0626 09/24/22 2044 09/24/22 1603 09/24/22 1144 09/24/22 0621 09/23/22 1958 09/23/22 1640 09/23/22 1400 09/23/22 1314 09/23/22 1137 09/23/22 0624 09/22/222022 POCGLU 155 218* 243* 272* 186 226* 94 276* 324* 291* 191 185 ASSESSMENT Ishan Irving is a 62 year old female with a medical history notable for??recent L femoral neck fracture,??bipolar disorder, resolving medication- induced Parkinsonism, insulin-dependent diabetesmellitus,??hx of alcohol use disorder (reported to be in remission for 1.5 years) c/b chronic pancreatitis, iron deficiency anemia,??GERD??c/b??esophagitis &??Farrell's esophagus??presenting in transfer from [facility], suspected to be in cardiogenic shock and found to be in mixed shock with concern for stress cardiomyopathy.??A1C of 6.2% upon admission suggesting an average BG of??131??mg/dL for the past 6-8 weeks. Currently has variability of blood glucose levels while hospitalized requiring adjustment of insulin regimen and DM medications. ?? Patient discharging to home on cycled feed. Lantus only recently added back with rising BG baseline. Transitioning lantus dosing back to morning today at 10 units and will discharge with NPH to coverfeeds as patient requiring close to 40 units of insulin daily on current feed to keep blood sugars in range. ? PLAN TODAY Lantus:10 units in am Lispro for correction q 4 hours based on a correction factor of 15 Diet TF Nutren 1.5 running at 72mls/hr x 14 hrs Monitoring: Q4 ? PLAN FOR DISCHARGE 1. A member from [...] avoid another low BG in the future. Elsie Erickson APRN [facility] Endocrinology Diabetes Management Pager [phone] minutes of 50 minutes was spent evaluating diabetes and treatment plan, reviewing all glucose and insulin data as well as relevant laboratory results, in discharge planning and coordination of care on the inpatient unit including nursing and primary team. * Nubia Greenwood RN - 09/25/2022 4:11 AM EDT OUTCOME SUMMARY: Pt A&Ox4, VSS, afebrile, no pain, no shortness of breath, and no chest pain reported. O2@RA. BG checks and insulin given per JUL. External cath in place, working properly. BMx1 on this shift-incontinence provided. Pt remained free from falls during this shift. Assessment as filled, bed in lowest position, all belongings and call light within reach. PLAN MOVING FORWARD: Vitals/Labs Diet restrictions Falls prevention D/C INDIVIDUALIZED FALL PREVENTION INTERVENTIONS: Patient-specific fall risk factors per assessment: [current deficits]: High fall risk, IV tubing, weakness. Assistance [level of assistance required for transfers and ambulation]: 1 person w/walker Supervision [direct monitoring required during toileting and ADLs]: Hands on Surveillance [continuous indirect monitoring]: [facility] Bed alarm Room near nurses' station Rounding Patient-specific fall prevention interventions for sensory deficits provided, if applicable: [X] No * Jose Mcleod MD - 09/24/2022 4:21 PM EDT Hospital Medicine Attending Daily Progress Note Admit Date: 08/14/2022 Hospital Day 41 days Active Hospital Problems Diagnosis ??? Bipolar disorder ??? T2DM (type 2 diabetes mellitus) Resolved Hospital Problems Diagnosis Date Resolved ??? Shock 08/22/2022 [facility] Active Non-Hospital Problems Diagnosis ??? Neuroleptic-induced parkinsonism ??? BMI 37.0-37.9, adult ??? GERD (gastroesophageal reflux disease) ??? Farrell's esophagus Inpatient Medications: Scheduled ??? insulin glargine (Lantus;Semglee) (100 unit/mL) subcutaneous injection 10 Units Subcutaneous Nightly ??? gabapentin 300 mg Per G Tube TID ? ? insulin lispro 1-10 Units Subcutaneous 4 Times Daily AC & HS ??? acetaminophen 650 mg Per G Tube 4 Times Daily ??? protein powder 2 Scoop Per G Tube Daily ??? pantoprazole DR 40 mg Per G Tube BID ??? spironolactone 12.5 mg Per G Tube Daily ??? metoproloL tartrate 25 mg Per G Tube 2 times per day ??? atorvastatin 80 mg Per G Tube QPM ??? buPROPion 100 mg Per G Tube Daily ??? ergocalciferoL (vitamin D2) 50,000 Units Per G Tube Weekly ??? ferrous sulfate 300 mg Per G Tube Every Other Day ??? folic acid 1,000 mcg Per G Tube Daily ??? melatonin 6 mg Per G Tube Nightly ??? QUEtiapine 100 mg Per G Tube Nightly ??? sacubitriL-valsartan 1 tablet Per G Tube BID ??? valproic acid 300 mg Per G Tube Q6H ??? thiamine 100 mg Per G Tube Daily ??? empagliflozin 10 mg Oral Daily ??? enoxaparin 40 mg Subcutaneous Daily ??? chlorhexidine 15 mL Oral BID ??? sodium chloride 0.9 % (flush) 5 mL Intravenous BID Continuous infusions: ??? tube feeding diet 1,008 mL (09/24/22 0616) PRN: prochlorperazine, ondansetron, polyethylene glycoL, diclofenac, senna, bisacodyL, sodium chloride 0.9 % (flush), lidocaine, glucose 40% oral geL OR dextrose 10% OR glucagon Interval History: - no acute overnight events - no acute complaints other than her chronic LE neuropathy - excited to go home tomorrow ROS: negative except as noted above Physical Exam Vitals Range last 24 hrs Temperature Temp: [36.4 ??C (97.5 ??F)-36.9 ??C (98.4 ??F)] Heart Rate Heart Rate: [74-88] Blood Pressure BP: (98-122)/(48-64) Respiratory Rate Resp: [15-16] SpO2 SpO2: [92 %-97 %] Intake/Output Summary (Last 24 hours) at 09/24/2022 1621 Last data filed at 09/24/2022 1200 Gross per 24 hour Intake 1126 ml Output 350 ml Net 776 ml Patient Vitals for the past 168 hrs: Weight 09/22/22 0642 63.2 kg (139 lb 6.4 oz) 09/21/22 0543 67.7 kg (149 lb 3.2 oz) 09/20/22 0541 65.1 kg (143 lb 8.3 oz) 09/19/22 0554 67 kg (147 lb 9.6 oz) 09/18/22 0543 66.7 kg (147 lb 0.8 oz) Body mass index is 27.22 kg/m??. GEN: chronically ill appearing woman, sitting up in chair HEENT: MMM PULM: no increased work of breathing NEURO: awake and alert with logical answers to questions Studies reviewed in eDH. Remarkable for the following: LABS: Last 3 wbc, hgb, hct plt Recent Labs 09/23/22 0502 09/20/22 0506 09/16/22 0308 WBC 6.8 6.5 6.7 HGB 11.5* 11.1* 10.7* HCT 38.4 36.8 35.6* PLATELET 222 232 242 Last 3 Lytes Recent Labs 09/24/22 0531 09/23/22 0502 09/22/22 0544 NA 139 139 139 K 4.5 4.6 4.7 CL 100 101 101 CO2 30 30 28 BUN 31* 28* 24* CREATININE 0.69* 0.57* 0.56* Last 3 LFTs Recent Labs 08/20/22 1400 08/15/22 0950 08/15/22 0305 AST 39* 21 25 ALT 20 12 13 ALKPHOS 213* 102 99 BILITOT <0.2* <0.2* 0.2 BILIDIR 0.1 0.1 0.1 FSBG Trend Recent Labs 09/24/22 1603 09/24/22 1144 09/24/22 0621 09/23/22 1958 09/23/22 1640 09/23/22 1400 09/23/22 1314 09/23/22 1137 09/23/22 0624 09/22/222022 POCGLU 243* 272* 186 226* 94 276* 324* 291* 191 185 MICRO: No results for input(s): URINECULTURE in the last 720 hours. No results for input(s): GRAMSTAIN, BFCX, LOWERRESPCX, TISSUECX in the last 720 hours. No results for input(s): BLOODCX in the last 720 hours. ECG: Recent Labs 09/07/22 0635 DIAGLINE Normal sinus rhythm with sinus arrhythmia Low voltage QRS T wave abnormality, consider anterolateral ischemia Abnormal ECG When compared with ECG of 01-SEP-2022 02:24, No significant change was found I personally reviewed the tracing and edited the fellows interpretation Confirmed by fellow Niurka Rose ([id number]) on 09/07/2022 8:45:34 AM Confirmed by MD ALEJANDRA, RICHARD ([id number]) on 09/07/2022 1:55:43 PM QTCCALC 455 VASCULAR: No results for input(s): VBTEXTRPT in the last 720 hours. IMAGING: No recent imaging Assessment: Ms Irving is a 62 y.o. woman with a history of L femoral neck fracture,??bipolar disorder, resolving medication-induced Parkinsonism, insulin- dependent diabetes mellitus,??hx of alcohol use disorder (reported to be in remission for 1.5 years) c/b chronic pancreatitis, iron deficiency anemia,??GERD??c/b??esophagitis &??Farrell's esophagus, who was admitted to [facility] on 08/14/2022??for mixed shock and stress cardiomyopathy who transferred to Hospital Medicine due to persistent dysphagia. ?? Patient remains clinically stable. Patient reports that she would like to go home as soon as possible and not go to rehab. reports being anxious that she is not receiving the amount of physical therapy that she needs while inpatient and feels that they would be able to provide 24/7 care forpatient with his son and patient's sister present next week. Will try to see how patient's functionimproves over the next few days. ?? #Medication-induced Parkinsonism #Dysphagia #Esophageal stricture?? #GERD c/b Farrell's esophagus & esophagitis - f/u with GI outpatient for severe stricture - G tube in place as of 09/11 - Continue tube feeds via G tube - Will need retention anchors out in 7-10 days??postplacement, ordered by IR, scheduled for 09/25 at9 AM ?? #Acute hypoxic respiratory failure, resolved #Bilateral airspace opacities/multifocal pneumonia, resolved -??Respiratory support with LFNC PRN - Antibiotics: Status post zosyn for pneumonia - Fungitell and Fungal Cx positive, no change in management per ID - CT Chest showed persistent pneumonia; ID followed, patient completed course of antibiotics ?? #Distributive Shock, resolved #NSTEMI Type I vs Type II, resolved #HFrEF (EF 25%) #Stress Cardiomyopathy - Will not perform LHC given results of CTA coronary arteries - ASA 81mg - Entresto 24-26 1 tab BID -??Continue metoprolol tartrate 25 mg twice daily -??Continue spironolactone 12.5 mg daily - Empagliflozin 10mg as part of GDT - She will need a repeat TTE after 3 months (~11/18) - Mg >1, K >4 ?? #Constipation- resolved #Rectal wall edema 2/2 stool ball - Has Miralax, senna, dulcolax PRN ordered - Continue home pantoprazole 40 BID ?? #Insulin-dependent diabetes -??Diabetes Management consulted, appreciate recs - poorly controlled over the last 24 hours. Will reach out to DM management, consider adding long acting insulin ?? #Mixed JERRICA and ACD - Oral iron supplementation started 08/21 ?>??s/p 1 dose of Venofer - Ferritin, Iron, TIBC resulted; mixed picture - Transfuse for Hb <8 - S/p 1u pRBC 08/22 ?? #Septic shock #Bilateral airspace opacities/multifocal pneumonia #L Hip Fluid Collection #Subcentimeter left posterior upper lobe cavitary lesions - Infectious work-up initially did not yield any clear causative organisms - S/p BAL 08/21 without any growth to date. - IR, orthopedic surgery consulted for evaluation of L hip fluid collection. No intervention/drainable target. - Stopped zosyn as per ID (08/14- 08/23) - Fungal testing positive no change in management at this time per ID ?? #Severe Vitamin D Deficiency #Fragility Fracture - ergocalciferol 50,000U weekly x8 weeks (to end 10/13) - calcium via tube feed - Endocrinology consult ?>??will follow up when d/c from hospital - DXA after discharge - future anabolic agent after recovery from vitamin D deficiency ?? #Bilateral lower extremity neuropathic pain -Continue gabapentin. Increase to 300 mg TID on 09/21 DIET: NPO, tube feeds ACCESS: PIV LINES/TUBES: G tube, external Mcrae catheter Ppx: LMWH CODE: full FAMILY UPDATE: spoke with at the bedside 09/21, 09/22, 09/23 LABS: daily BMP DISPO: plan for home with family 09/25 Team Pager( Coverage 30/11): #[phone] PCP: Chris Stanley, CELL OPERATION SUPERVISOR [phone] Attestation: Attending Attestation and Certification I have examined the patient myself and personally reviewed all studies. In addition, I certify thatI am a [facility] credentialed attending provider with admitting privileges and that the patient meets or has met medical necessity to require an inpatient IPI level of care meeting a minimum of two midnights or is on the [facility] inpatient only procedure list (status C) due to: the patient has met Inpatient IPI criteria and is awaiting rehabilitation or [facility] facility placement with active referrals in process Jose Mcleod MD 09/24/2022 * Alicia Glez OTA - 09/24/2022 3:10 PM EDT Occupational Therapy Note Document Type: (P) contact Total Minutes, Occupational Therapy: (P) 0 Reason: Pt will be d/c tomorrow with family, therapy checking in with pt for any questions or needsprior to d/c. Pt encouraged to get all her questions answered by medical team and nursing prior to d/c. Therapist provided a written daily schedule to patient engaging pt in d/c schedule for continued ADL's, toileting, mobilizing with FWW, exercising, resting, medications, and leisure activities. Patient receptive and verbalizing understanding of mobility and importance to continue to progress athome. Pager: [phone] DANIELA Montes 09/24/2022 Occupational Therapy Rehabilitation Department * Margret Moreno RN - 09/24/2022 1:55 PM EDT [facility] Follow up Note: Referral to : LINNEA Confirmed with Wallace HERRERA that patient will be seen day after discharge Hospital teaching occurred at 10AM 09-24-22 Delivery of IV supplies will occur 09-24-22 @ 5pm . To be delivered to patients room in the hospital. [facility] [phone] * Alicia Gillis - 09/24/2022 10:38 AM EDT Assisted patient and with online social security disability application. * Sofia Montoya RN - 09/23/2022 9:59 PM EDT OUTCOME EVALUATION NOTE: ?? OUTCOME SUMMARY: ?? Pt A&Ox4. VSS on RA. Pt endorsed 10/10 pain in feet along with numbness/tingling (L>R). Scheduled Gabapentin and Tylenol given via PEG. Cyclic tube feed of Nutren 1.5 stopped at 2200 and restarted at 0600 per order. BG monitored q4h and insulin given per JUL. External catheter in place. Pt slept between care. Assessment as filed. Safety maintained. Will continue to monitor. ?? PLAN MOVING FORWARD: ?? PEG Sips and chips BG QID VS q6h WA PT/OT D/c planning- Wednesday home w/ PEG ?? INDIVIDUALIZED FALL PREVENTION INTERVENTIONS: ?? Bed alarm set, wheels locked and bed in lowest position, side rails up x3, call marshall/personal itemswithin reach, non-skid socks when OOB, purposeful hourly rounding, room near nurse's station ?? Patient-specific fall risk factors per assessment: [current deficits]: IV site, Hx of fall w/ injury, generalized weakness ?? Assistance [level of assistance required for transfers and ambulation]: 1 Assist in bed ?? Supervision [direct monitoring required during toileting and ADLs]: Hands on ?? Surveillance [continuous indirect monitoring]: Masimo on ?? Patient-specific fall prevention interventions for sensory deficits provided, if applicable: [X] Yes ? CPG GOAL OUTCOME EVALUATION: * Elsie Erickson APRN - 09/23/2022 3:41 PM EDT Follow Up Diabetes Consult Patient Interview Blood glucose values and insulin use reviewed. Ishan is ready to leave and plan is for D/C on Wednesday. Blood sugars have been rising and we have been asked to reenage in Ishan's care. Review of notes indicate that Tube feed formula was changed last week. BGs were controlled prior to change to higher carb Nutren 1.5 feed (176 g/CHO per L). Discussed adding lantus back at 10 units and for discharge with lantus if this is the feed she will discharge with. Dieticians believe this will be her d/cfeed though there have been supply issues resulting in required substitutions so we will not know for sure until her discharge. Objective Temp: [36.3 ??C (97.3 ??F)-36.7 ??C (98.1 ??F)] Heart Rate: [68] Resp: [16] BP: (102-133)/(51-63) SpO2: [93 %-95 %] Heart Rate from SpO2: [67 bpm-80 bpm] Current Regimen from previous note CHANGE Lispro for correction q 4 hours based on a correction factor of 40 Diet TF: Peptamen AF 90 mls/hr x 14 hours. Monitoring: decrease to 4 x daily with stable overnight blood sugars ?? Recent Glucose Levels Recent Labs 09/23/22 1400 09/23/22 1314 09/23/22 1137 09/23/22 0624 09/22/22202209/22/22 1635 09/22/22 1124 09/22/22 0638 09/21/22 2005 09/21/22 1628 09/21/22 1127 09/21/22 0700 POCGLU 276* 324* 291* 191 185 220* 304* 188 168 258* 221* 211* ASSESSMENT Ishan Irving is a 62 year old female with a medical history notable for??recent L femoral neck fracture,??bipolar disorder, resolving medication- induced Parkinsonism, insulin-dependent diabetesmellitus,??hx of alcohol use disorder (reported to be in remission for 1.5 years) c/b chronic pancreatitis, iron deficiency anemia,??GERD??c/b??esophagitis &??Farrell's esophagus??presenting in transfer from [facility], suspected to be in cardiogenic shock and found to be in mixed shock with concern for stress cardiomyopathy.??A1C of 6.2% upon admission suggesting an average BG of??131??mg/dL for the past 6-8 weeks. Currently has variability of blood glucose levels while hospitalized requiring adjustment of insulin regimen and DM medications. Lantus was discontinued previously when pt was receiving Peptamen TF, she required minimal insulin prior to change last week to Nutren 1.5 with 176 grams CHO per L, running at 72mls/hr x 14 hrs for 177 grams CHO. Discussed with primary team adding back lantus 10 units. Correction should be loosenedto moderate. TF formula for discharge will likely be similar to current Nutren 1.5. Will monitor while Ishan is still here, may need to increase lantus if BGS remain elevated. PLAN Lantus:10 units Lispro for correction q 4 hours based on a correction factor of 20 Diet TF Nutren 1.5 running at 72mls/hr x 14 hrs Monitoring: Q4 Elsie Erickson APRN [facility] Endocrinology Diabetes Management Pager [phone] minutes of this 50 minute visit was spent evaluating diabetes and treatment plan, reviewing all glucose and insulin data as well as relevant laboratory results , and coordination of care on the inpatient unit including nursing and primary team * Jose Mcleod MD - 09/23/2022 3:12 PM EDT Hospital Medicine Attending Daily Progress Note Admit Date: 08/14/2022 Hospital Day 40 days Active Hospital Problems Diagnosis ??? Bipolar disorder ??? T2DM (type 2 diabetes mellitus) Resolved Hospital Problems Diagnosis Date Resolved ??? Shock 08/22/2022 [facility] Active Non-Hospital Problems Diagnosis ??? Neuroleptic-induced parkinsonism ??? BMI 37.0-37.9, adult ??? GERD (gastroesophageal reflux disease) ??? Farrell's esophagus Inpatient Medications: Scheduled ??? gabapentin 300 mg Per G Tube TID ? ? insulin lispro 1-10 Units Subcutaneous 4 Times Daily AC & HS ??? acetaminophen 650 mg Per G Tube 4 Times Daily ??? protein powder 2 Scoop Per G Tube Daily ??? pantoprazole DR 40 mg Per G Tube BID ??? spironolactone 12.5 mg Per G Tube Daily ??? metoproloL tartrate 25 mg Per G Tube 2 times per day ??? atorvastatin 80 mg Per G Tube QPM ??? buPROPion 100 mg Per G Tube Daily ??? ergocalciferoL (vitamin D2) 50,000 Units Per G Tube Weekly ??? ferrous sulfate 300 mg Per G Tube Every Other Day ??? folic acid 1,000 mcg Per G Tube Daily ??? melatonin 6 mg Per G Tube Nightly ??? QUEtiapine 100 mg Per G Tube Nightly ??? sacubitriL-valsartan 1 tablet Per G Tube BID ??? valproic acid 300 mg Per G Tube Q6H ??? thiamine 100 mg Per G Tube Daily ??? empagliflozin 10 mg Oral Daily ??? enoxaparin 40 mg Subcutaneous Daily ??? chlorhexidine 15 mL Oral BID ??? sodium chloride 0.9 % (flush) 5 mL Intravenous BID Continuous infusions: ??? tube feeding diet 1,008 mL (09/23/22 0600) ??? tube feeding diet Stopped (09/17/22 2219) PRN: prochlorperazine, ondansetron, polyethylene glycoL, diclofenac, senna, bisacodyL, sodium chloride 0.9 % (flush), lidocaine, glucose 40% oral geL OR dextrose 10% OR glucagon Interval History: - no acute overnight events - no acute complaints. ready for tube feed teaching tomorrow 09/24 ROS: negative except as noted above Physical Exam Vitals Range last 24 hrs Temperature Temp: [36.3 ??C (97.3 ??F)-36.7 ??C (98.1 ??F)] Heart Rate Heart Rate: [68] Blood Pressure BP: (102-133)/(51-63) Respiratory Rate Resp: [16] SpO2 SpO2: [93 %-95 %] Intake/Output Summary (Last 24 hours) at 09/23/2022 1513 Last data filed at 09/23/2022 1200 Gross per 24 hour Intake 1145 ml Output 1250 ml Net -105 ml Patient Vitals for the past 168 hrs: Weight 09/22/22 0642 63.2 kg (139 lb 6.4 oz) 09/21/22 0543 67.7 kg (149 lb 3.2 oz) 09/20/22 0541 65.1 kg (143 lb 8.3 oz) 09/19/22 0554 67 kg (147 lb 9.6 oz) 09/18/22 0543 66.7 kg (147 lb 0.8 oz) 09/17/22 0540 64.4 kg (142 lb) 09/16/22 1557 67.6 kg (149 lb) Body mass index is 27.22 kg/m??. GEN: chronically ill appearing woman, lying in bed HEENT: MMM PULM: no increased work of breathing NEURO: awake and alert with logical answers to questions Studies reviewed in eDH. Remarkable for the following: LABS: Last 3 wbc, hgb, hct plt Recent Labs 09/23/22 0502 09/20/22 0506 09/16/22 0308 WBC 6.8 6.5 6.7 HGB 11.5* 11.1* 10.7* HCT 38.4 36.8 35.6* PLATELET 222 232 242 Last 3 Lytes Recent Labs 09/23/22 0502 09/22/22 0544 09/21/22 0554 NA 139 139 137 K 4.6 4.7 4.6 CL 101 101 101 CO2 30 28 27 BUN 28* 24* 23* CREATININE 0.57* 0.56* 0.51* Last 3 LFTs Recent Labs 08/20/22 1400 08/15/22 0950 08/15/22 0305 AST 39* 21 25 ALT 20 12 13 ALKPHOS 213* 102 99 BILITOT <0.2* <0.2* 0.2 BILIDIR 0.1 0.1 0.1 FSBG Trend Recent Labs 09/23/22 1400 09/23/22 1314 09/23/22 1137 09/23/22 0624 09/22/22202209/22/22 1635 09/22/22 1124 09/22/22 0638 09/21/22200409/21/22 1628 POCGLU 276* 324* 291* 191 185 220* 304* 188 168 258* MICRO: No results for input(s): URINECULTURE in the last 720 hours. No results for input(s): GRAMSTAIN, BFCX, LOWERRESPCX, TISSUECX in the last 720 hours. No results for input(s): BLOODCX in the last 720 hours. ECG: Recent Labs 09/07/22 0635 DIAGLINE Normal sinus rhythm with sinus arrhythmia Low voltage QRS T wave abnormality, consider anterolateral ischemia Abnormal ECG When compared with ECG of 01-SEP-2022 02:24, No significant change was found I personally reviewed the tracing and edited the fellows interpretation Confirmed by fellow Niurka Rose ([id number]) on 09/07/2022 8:45:34 AM Confirmed by MD ROBERTS DAVID ([id number]) on 09/07/2022 1:55:43 PM QTCCALC 455 VASCULAR: No results for input(s): VBTEXTRPT in the last 720 hours. IMAGING: No recent imaging Assessment: Ms Irving is a 62 y.o. woman with a history of L femoral neck fracture,??bipolar disorder, resolving medication-induced Parkinsonism, insulin- dependent diabetes mellitus,??hx of alcohol use disorder (reported to be in remission for 1.5 years) c/b chronic pancreatitis, iron deficiency anemia,??GERD??c/b??esophagitis &??Farrell's esophagus, who was admitted to [facility] on 08/14/2022??for mixed shock and stress cardiomyopathy who transferred to Hospital Medicine due to persistent dysphagia. ?? Patient remains clinically stable. Patient reports that she would like to go home as soon as possible and not go to rehab. reports being anxious that she is not receiving the amount of physical therapy that she needs while inpatient and feels that they would be able to provide 24/7 care forpatient with his son and patient's sister present next week. Will try to see how patient's functionimproves over the next few days. ?? #Medication-induced Parkinsonism #Dysphagia #Esophageal stricture?? #GERD c/b Farrell's esophagus & esophagitis - f/u with GI outpatient for severe stricture - G tube in place as of 09/11 - Continue tube feeds via G tube - Will need retention anchors out in 7-10 days??postplacement, ordered by IR, scheduled for 09/25 at9 AM ?? #Acute hypoxic respiratory failure, resolved #Bilateral airspace opacities/multifocal pneumonia, resolved -??Respiratory support with LFNC PRN - Antibiotics: Status post zosyn for pneumonia - Fungitell and Fungal Cx positive, no change in management per ID - CT Chest showed persistent pneumonia; ID followed, patient completed course of antibiotics ?? #Distributive Shock, resolved #NSTEMI Type I vs Type II, resolved #HFrEF (EF 25%) #Stress Cardiomyopathy - Will not perform LHC given results of CTA coronary arteries - ASA 81mg - Entresto 24-26 1 tab BID -??Continue metoprolol tartrate 25 mg twice daily -??Continue spironolactone 12.5 mg daily - Empagliflozin 10mg as part of GDT - She will need a repeat TTE after 3 months (~11/18) - Mg >1, K >4 ?? #Constipation- resolved #Rectal wall edema 2/2 stool ball - Has Miralax, senna, dulcolax PRN ordered - Continue home pantoprazole 40 BID ?? #Insulin-dependent diabetes -??Diabetes Management consulted, appreciate recs - poorly controlled over the last 24 hours. Will reach out to DM management, consider adding long acting insulin ?? #Mixed JRERICA and ACD - Oral iron supplementation started 08/21 ?>??s/p 1 dose of Venofer - Ferritin, Iron, TIBC resulted; mixed picture - Transfuse for Hb <8 - S/p 1u pRBC 08/22 ?? #Septic shock #Bilateral airspace opacities/multifocal pneumonia #L Hip Fluid Collection #Subcentimeter left posterior upper lobe cavitary lesions - Infectious work-up initially did not yield any clear causative organisms - S/p BAL 08/21 without any growth to date. - IR, orthopedic surgery consulted for evaluation of L hip fluid collection. No intervention/drainable target. - Stopped zosyn as per ID (08/14- 08/23) - Fungal testing positive no change in management at this time per ID ?? #Severe Vitamin D Deficiency #Fragility Fracture - ergocalciferol 50,000U weekly x8 weeks (to end 10/13) - calcium via tube feed - Endocrinology consult ?>??will follow up when d/c from hospital - DXA after discharge - future anabolic agent after recovery from vitamin D deficiency ?? #Bilateral lower extremity neuropathic pain -Continue gabapentin. Increase to 300 mg TID on 09/21 DIET: NPO, tube feeds ACCESS: PIV LINES/TUBES: G tube, external Mcrae catheter Ppx: LMWH CODE: full FAMILY UPDATE: spoke with at the bedside 09/21, 09/22, 09/23 LABS: daily BMP DISPO: plan for home with family 09/25 Team Pager( Coverage 30/11): #[phone] PCP: Chris Stanley APRN [phone] Attestation: Attending Attestation and Certification I have examined the patient myself and personally reviewed all studies. In addition, I certify thatI am a [facility] credentialed attending provider with admitting privileges and that the patient meets or has met medical necessity to require an inpatient IPI level of care meeting a minimum of two midnights or is on the CMS inpatient only procedure list (status C) due to: the patient has met Inpatient IPI criteria and is awaiting rehabilitation or [facility] facility placement with active referrals in process Jose Mcleod MD 09/23/2022 * Feroz Portillo, STONE BREAKER - 09/23/2022 1:55 PM EDT Physical Therapy Note Treatment Number PT: 14 Patient profile: Ishan Irving is a 62 y.o. female admitted on 08/14/2022 with a medical history notable for??recent L femoral neck fracture,??bipolar disorder, resolving medication-induced Parkinsonism, insulin-dependent diabetes mellitus,??hx of alcohol use disorder (reported to be in remission for 1.5 years) c/b chronic pancreatitis, iron deficiency anemia,??GERD??c/b??esophagitis &??Farrell's esophagus??presenting in transfer from [facility], suspected to be in cardiogenic shock and found to be in mixed shock with concern for stress cardiomyopathy. She is s/p ORIF left femoral neck fracture ~ 08/08 at OSH. Interval History: Uneventful Social History: single level home w ramp to enter. 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 Pt drives, does all community chores. Does have a RW avail at home which she had been using since ORIF. Fall Hx: Spouse reports that pt slipped in a puddle of water left by the dog which is the cause of her hip fx Precautions/Special Considerations: WBAT L leg, Fall risk Mobility and Positioning Recommendations: ?? Pt able to stand pivot transfer and ambulate room distances with FWW and 1 assist ?? Encourage short distance ambulation with FWW, 1 assist ?? Please encourage up to chair for meal times as able. Subjective: Are you going to sign off on me, that I can go home? Objective: Patient seen for physical therapy and demonstrated the following: Pain: no c/o pain Vital Signs: stable on room air. ?? Pt in recliner chair, agreeable to therapy ?? Sit to stand to FWW, UE push off, Min A, pulled up brief and underwear in standing ?? Ambulated 10 ft to wheelchair with FWW and CGA, cues for turning around fully and slow controlled descent when sitting ?? Brought up to in-pt gym ?? Stand pivot transfer to and from Nu step, FWW, Min A, cues for UE push off and one hand on walker, count to three ?? Nu step for 5 minutes, steady pacing, monitor not working ?? Sit<->stand from Nu step to FWW, CGA ?? Ambulated 40 ft with FWW and CGA, step through gait, steady, slow gait speed ?? Seated rest breaks ?? Sit<->stand x 3 from low black chair, UE push off, count to three, CGA, extra time required ?? 2 stairs x 2, B UE's on right railing, CGA, ascended with step to gait forward and step to gait backward to descend. Steady, no knee buckling, increased anxiety ?? Ambulated 25 ft back to wheelchair, FWW, CGA, slow step through gait, steady ?? Sit<->stand x 5 from w/c to FWW, UE push off, CGA progressing to Min A as she fatigued ?? Brought back to pt's room ?? Stand pivot transfer from w/c to bed, FWW and Min A ?? Sit to supine, supervision ?? Pt left supine in bed with bed alarm on, all needs met, following visit. Education: Progressing ambulation distances, using UE's to assist with standing and working on stairs Assessment: Ishan Liuson was seen today for physical therapy treatment session for continuation of POC. Pt is able to manage basic mobility tasks with 1 person assist, flat bed mobility, transfers from low surfaces, short ambulation distances and 2 stairs with one railing. Pt will have several people at home to assist with mobility 30/11. Improved anxiety with short distance mobility, doesnot ask to sit and safely turns around fully before attempting to sit. [facility] when medically ready. Discharge Recommendations: Based on the current findings, Anticipated Discharge Disposition (PT): home with home health, home with supervision (30/11 assist) when medically ready for hospital discharge. Consult Recommendations: No other consults recommended at this time. Equipment needs: none Anticipated Equipment Needs at Discharge (PT): None Physical Therapy Goals: To be achieved by 09/24/22: Met ?? 1. Pt. will demonstrate understanding of appropriate exercises and perform them independently or with family. 2. Pt. will perform bed mobility with modified independence. 3. Pt. will perform sit to stand transfers with min A using a front wheeled walker. 4. Pt. Will perform sit to stand transfers with CGA using a front wheeled walker. 5. Pt. will ambulate 10 feet with mod A using a front wheeled walker. 6. Pt. Will ambulate 25 with CGA using a front wheeled walker. 7. Pt. will ascend/descend step/stairs sufficient for home using rail and assist of 1 Plan: Therapy Frequency (PT): 2-4 times/wk for skilled PT rx as outlined in initial evaluation. Patient agrees with plan as stated. Time IN / OUT: 13:25-13:55 Total Minutes, Physical Therapy: 30 Billing Code: TE-F x 2 FEROZ PORTILLO TEMITOPE Pager: [phone] Physical Therapy Inpatient Rehabilitation Department * Amaris Alicia Johanny, DANIELA - 09/23/2022 10:14 AM EDT Occupational Therapy Treatment Note Treatment Number OT: 8 Patient Dx: Ishan Irving??is a 62 y.o.??female??admitted on 08/14/2022??with a medical history notable for??recent L femoral neck fracture,??bipolar disorder, resolving medication-induced Parkinsonism, insulin- dependent diabetes mellitus,??hx of alcohol use disorder (reported to be in remission for 1.5 years) c/b chronic pancreatitis, iron deficiency anemia,??GERD??c/b??esophagitis &??Farrell's esophagus??presenting in transfer from [facility], suspected to be in cardiogenic shock and foundto be in mixed shock with concern for stress cardiomyopathy.??She is s/p ORIF left femoral neck frac ture. ?? Precautions/Special Considerations: aspiration, skin breakdown, falls, LLE WBAT, Dobhoff tube, Mcrae Interval History: Pr MD 09/22 no acute overnight events - this morning she denies any significant complaints other than ongoing paresthesias of the bilateral feet, L>R - is at the bedside and is advocating for patient to return home with family support on Monday 09/25 S: I have to go to the BR! Where is that Nurse? O: Patient seen for skilled OT treatment, and demonstrated the following: Pt is more engaged in therapy and continuing to progress with her activity tolerance for activitiesof daily living Spouse present during session, Pt and spouse reporting that they will be doing tube feeding training tomorrow at 10:00a.m. Pt and spouse education on decreasing pure wick during the day to increase pt's mobility and strength, pt and spouse acknowledging pt's goals Self care & functional mobility: ?? Diet:??NPO, May offer individual ice chips for pleasure / practice as per MD ?? Bathing: seated At sink In bathroom pt requires VC and set assist, pt able to bath UB ?? Pt requiring VC to wash legs, Max assist washing back ?? Dressing: Pt was able to doff gown today with no cues ?? Pt was able to marck gown with CGA ?? Grooming: oral care seated at sink, requires set up assist ?? Mobility: Pt was able to perform bed mobility with no assist to transition to EOB and place her feet on the floor ?? Pt requiring Min A for sit to stand from bed with FWW for support ?? Pt mobilized to sink, requesting chair seated at sink for ADL's ?? Pt mobilized from sink to toilet with CGA/ close supervision, void and perform hygiene and clothing management ?? Pt CGA to descend on/off toilet with VC for use of Grab bar for stability ?? Spouse reporting no grab bars at home, therapy encouraging ?? Pt transferred to sink for ADL's with CGA and FWW ?? Pt mobilized from BR to recliner, pt was able to weight shift hips and boost self back in chair today ?? Pt remained in recliner,call marshall, chair alarm and needs met ice water ?? Cognition: ?? Behavior / Mood: alert, cooperative and flat affect, anxious during transfer ?? Alert and oriented to: person, place, time and situation ?? Follows commands: 1 step and 100% of the time, does not attend to cues when anxious ?? Attention: WFL ?? Safety awareness: mild impairment ?? Vision: Glasses have been brought in by spouse; wears corrective lenses at all times ?? Endurance: fair improving ?? Vitals: Pt on RA stable Pain: Pt did not c/o pain this session Education: Pt/family/caregiver education ongoing regarding: Role of occupational therapy/rehabilitation, Transfers, Assistive device/technique, ADL, Exercise, Breathing exercises, Positioning, Safety, Precautions/Protocol, Functional Mobility, Activity pacing/Energy conservation and Balance. Staff Communication: Patient status, treatment, and mobility recommendations discussed with nursing/other staff. Please assist pt to BR/commode for toileting during the day to increase functional mobility, strength and activity tolerance. ASSESSMENT: Pt seen for continuation of therapy POC. Pt motivated today to mobilize to BR and batheat sink. Pt continues to have anxiety during transitions with FWW, however is demonstrating in crease activity tolerance for ADL's and functional mobility with FWW. Pt and spouse are deferring rehabilitation facilities at this time and are planning for home at end of week. Therapy continues to encourage no pure wick as pt will not have this device at home. Pt continues to be anxious standing during functional task, encouraging pt and spouse to continue t work towards that goal. Education on safety strategies, placing chairs where pt my sit during functional mobility at home. Pt continues to spitting up mucous with a cough. Therapy recommends discharge to acute rehab to improve functional mobility and safety. If patient is to return home she will need 24/7 supervision and assist with ADL's/medication and tube feedings until pt is able to do self tube feeds. Pt will benefit from home health services to include OT. Pt will benefit from ongoing therapeutic interventions to achieve therapygoals. ?? Equipment needs at discharge: to be determined( if pt is to return home she would benefit from a shower chair with arms, and commode over toilet due to no grab bars at present.) Anticipated Discharge Disposition: acute rehabilitation facility ( Patient and spouse are requesting home vs rehab) Daily schedule / Staff Recommendations: ? ? Encourage use of coping & calming strategies ??? Give choices when possible to support feelings of autonomy ? ? Frequent orientation verbally & visually with calendars/clocks/whiteboard ? ? Keep glasses, hearing aides, etc within reach & offer to pt as appropriate ??? Facilitate a normal sleep-wake cycle ??? Provide brief, clear instruction and direction from one source at a time ??? Provide calming music, favorite TV programs, magazines or newspapers ??? Utilize upright chair position using bed features or transfer to recliner chair as appropriate ??? Encourage participation in ADL's by providing set up A on tray table and physical assist only as needed ??? Please assist pt to commode for toileting during the day to increase functional mobility, strength and activity tolerance. ??? Encourage OOB daily Occupational Therapy Goals: to be reached by 09/23/22 -Patient will complete toileting tasks (hygiene, clothing management, transfers)??with Mod A and??with AE, as needed requires A after BM -Patient will ambulate household distances??with Mod A and??with AD, as needed progressing - Therapy Frequency (OT): 2-3 times/wk Total Minutes, Occupational Therapy: 44 (x3 schm [id number]) Pager: [phone] DANIELA Montes 09/23/2022 Occupational Therapy Rehabilitation Department * Aleshia Esparza, RN - 09/22/2022 5:51 PM EDT OUTCOME EVALUATION NOTE: OUTCOME SUMMARY: Pt is A&Ox4. VSS, on RA. Meds admin'd via PEG per order. TF's admin'd per order. Pt continues with persistent low grade nausea. OOB to chair with 1A and FWW. Continues to endorse N/T to bilateralfeet. Pt looking forward to d/c home on Wednesday. Education provided on TF's. Purewick in place. Bed alarm on for safety. Call marshall within reach. Rings approp. PLAN MOVING FORWARD: TF's Enc activity D/c planning INDIVIDUALIZED FALL PREVENTION INTERVENTIONS: Patient-specific fall risk factors per assessment: [current deficits]: Gen weakness, hospital environment, Assistance [level of assistance required for transfers and ambulation]: 1A FWW Supervision [direct monitoring required during toileting and ADLs]: Hands on, Eyes on Surveillance [continuous indirect monitoring]: Purposeful rounding, room near nursing station, calllight within reach Patient-specific fall prevention interventions for sensory deficits provided, if applicable: [X] N/A * Jose Mcleod MD - 09/22/2022 4:38 PM EDT Hospital Medicine Attending Daily Progress Note Admit Date: 08/14/2022 Hospital Day 39 days Active Hospital Problems Diagnosis ??? Bipolar disorder ??? T2DM (type 2 diabetes mellitus) Resolved Hospital Problems Diagnosis Date Resolved ??? Shock 08/22/2022 PMH Active Non-Hospital Problems Diagnosis ??? Neuroleptic-induced parkinsonism ??? BMI 37.0-37.9, adult ??? GERD (gastroesophageal reflux disease) ??? Farrell's esophagus Inpatient Medications: Scheduled ??? gabapentin 300 mg Per G Tube TID ? ? insulin lispro 1-10 Units Subcutaneous 4 Times Daily AC & HS ??? acetaminophen 650 mg Per G Tube 4 Times Daily ??? protein powder 2 Scoop Per G Tube Daily ??? pantoprazole DR 40 mg Per G Tube BID ??? spironolactone 12.5 mg Per G Tube Daily ??? metoproloL tartrate 25 mg Per G Tube 2 times per day ??? atorvastatin 80 mg Per G Tube QPM ??? buPROPion 100 mg Per G Tube Daily ??? ergocalciferoL (vitamin D2) 50,000 Units Per G Tube Weekly ??? ferrous sulfate 300 mg Per G Tube Every Other Day ??? folic acid 1,000 mcg Per G Tube Daily ??? melatonin 6 mg Per G Tube Nightly ??? QUEtiapine 100 mg Per G Tube Nightly ??? sacubitriL-valsartan 1 tablet Per G Tube BID ??? valproic acid 300 mg Per G Tube Q6H ??? thiamine 100 mg Per G Tube Daily ??? empagliflozin 10 mg Oral Daily ??? enoxaparin 40 mg Subcutaneous Daily ??? chlorhexidine 15 mL Oral BID ??? sodium chloride 0.9 % (flush) 5 mL Intravenous BID Continuous infusions: ??? tube feeding diet 1,008 mL (09/22/22 1000) ??? tube feeding diet Stopped (09/17/222218) PRN: prochlorperazine, ondansetron, polyethylene glycoL, diclofenac, senna, bisacodyL, sodium chloride 0.9 % (flush), lidocaine, glucose 40% oral geL OR dextrose 10% OR glucagon Interval History: - no acute overnight events - this morning she denies any significant complaints other than ongoing paresthesias of the bilateral feet, L>R - is at the bedside and is advocating for patient to return home with family support on Monday 09/25 ROS: negative except as noted above Physical Exam Vitals Range last 24 hrs Temperature Temp: [36.7 ??C (98.1 ??F)] Heart Rate Heart Rate: -- Blood Pressure BP: (103-125)/(53-64) Respiratory Rate Resp: [16-17] SpO2 SpO2: [91 %-94 %] Intake/Output Summary (Last 24 hours) at 09/22/2022 1639 Last data filed at 09/22/2022 1200 Gross per 24 hour Intake 971 ml Output 500 ml Net 471 ml Patient Vitals for the past 168 hrs: Weight 09/22/22 0642 63.2 kg (139 lb 6.4 oz) 09/21/22 0543 67.7 kg (149 lb 3.2 oz) 09/20/22 0541 65.1 kg (143 lb 8.3 oz) 09/19/22 0554 67 kg (147 lb 9.6 oz) 09/18/22 0543 66.7 kg (147 lb 0.8 oz) 09/17/22 0540 64.4 kg (142 lb) 09/16/22 1557 67.6 kg (149 lb) 09/16/22 0500 64.8 kg (142 lb 14.4 oz) Body mass index is 27.22 kg/m??. GEN: chronically ill appearing woman, lying in bed HEENT: MMM PULM: no increased work of breathing EXT: full strength at the bilateral knees and hips. 4/5 with bilateral ankle dorsiflexion and plantar flexion Studies reviewed in eDH. Remarkable for the following: LABS: Last 3 wbc, hgb, hct plt Recent Labs 09/20/22 0506 09/16/22 0308 09/15/22 0300 WBC 6.5 6.7 5.9 HGB 11.1* 10.7* 10.2* HCT 36.8 35.6* 34.4* PLATELET 232 242 252 Last 3 Lytes Recent Labs 09/22/22 0544 09/21/22 0554 09/20/22 0506 NA 139 137 135 K 4.7 4.6 4.9 CL 101 101 99 CO2 28 27 26 BUN 24* 23* 23* CREATININE 0.56* 0.51* 0.50* Last 3 LFTs Recent Labs 08/20/22 1400 08/15/22 0950 08/15/22 0305 AST 39* 21 25 ALT 20 12 13 ALKPHOS 213* 102 99 BILITOT <0.2* <0.2* 0.2 BILIDIR 0.1 0.1 0.1 FSBG Trend Recent Labs 09/22/22 1635 09/22/22 1124 09/22/22 0638 09/21/22200409/21/22 1628 09/21/22 1127 09/21/22 0700 09/20/22 2325 09/20/22 2119 09/20/22 1609 POCGLU 220* 304* 188 168 258* 221* 211* 166 291* 221* MICRO: No results for input(s): URINECULTURE in the last 720 hours. No results for input(s): GRAMSTAIN, BFCX, LOWERRESPCX, TISSUECX in the last 720 hours. No results for input(s): BLOODCX in the last 720 hours. ECG: Recent Labs 09/07/22 0635 DIAGLINE Normal sinus rhythm with sinus arrhythmia Low voltage QRS T wave abnormality, consider anterolateral ischemia Abnormal ECG When compared with ECG of 01-SEP-2022 02:24, No significant change was found I personally reviewed the tracing and edited the fellows interpretation Confirmed by fellow Niurka Rose ([id number]) on 09/07/2022 8:45:34 AM Confirmed by MD ALEJANDRA, RICHARD ([id number] on 09/07/2022 1:55:43 PM QTCCALC 455 VASCULAR: No results for input(s): VBTEXTRPT in the last 720 hours. IMAGING: No recent imaging Assessment: Ms Irving is a 62 y.o. woman with a history of L femoral neck fracture,??bipolar disorder, resolving medication-induced Parkinsonism, insulin- dependent diabetes mellitus,??hx of alcohol use disorder (reported to be in remission for 1.5 years) c/b chronic pancreatitis, iron deficiency anemia,??GERD??c/b??esophagitis &??Farrell's esophagus, who was admitted to [facility] on 08/14/2022??for mixed shock and stress cardiomyopathy who transferred to Hospital Medicine due to persistent dysphagia. ?? Patient remains clinically stable. Patient reports that she would like to go home as soon as possible and not go to rehab. reports being anxious that she is not receiving the amount of physical therapy that she needs while inpatient and feels that they would be able to provide 24/7 care forpatient with his son and patient's sister present next week. Will try to see how patient's functionimproves over the next few days. ?? #Medication-induced Parkinsonism #Dysphagia #Esophageal stricture?? #GERD c/b Farrell's esophagus & esophagitis - f/u with GI outpatient for severe stricture - G tube in place as of 09/11 - Continue tube feeds via G tube - Will need retention anchors out in 7-10 days??postplacement, ordered by IR, scheduled for 09/25 at9 AM ?? #Acute hypoxic respiratory failure, resolved #Bilateral airspace opacities/multifocal pneumonia, resolved -??Respiratory support with LFNC PRN - Antibiotics: Status post zosyn for pneumonia - Fungitell and Fungal Cx positive, no change in management per ID - CT Chest showed persistent pneumonia; ID followed, patient completed course of antibiotics ?? #Distributive Shock, resolved #NSTEMI Type I vs Type II, resolved #HFrEF (EF 25%) #Stress Cardiomyopathy - Will not perform LHC given results of CTA coronary arteries - ASA 81mg - Entresto 24-26 1 tab BID -??Continue metoprolol tartrate 25 mg twice daily -??Continue spironolactone 12.5 mg daily - Empagliflozin 10mg as part of GDT - She will need a repeat TTE after 3 months (~11/18) - Mg >1, K >4 ?? #Constipation- resolved #Rectal wall edema 2/2 stool ball - Has Miralax, senna, dulcolax PRN ordered - Continue home pantoprazole 40 BID ?? #Insulin-dependent diabetes -??Diabetes Management consulted, appreciate recs ?? #Mixed JERRICA and ACD - Oral iron supplementation started 08/21 ?>??s/p 1 dose of Venofer - Ferritin, Iron, TIBC resulted; mixed picture - Transfuse for Hb <8 - S/p 1u pRBC 08/22 ?? #Septic shock #Bilateral airspace opacities/multifocal pneumonia #L Hip Fluid Collection #Subcentimeter left posterior upper lobe cavitary lesions - Infectious work-up initially did not yield any clear causative organisms - S/p BAL 08/21 without any growth to date. - IR, orthopedic surgery consulted for evaluation of L hip fluid collection. No intervention/drainable target. - Stopped zosyn as per ID (08/14- 08/23) - Fungal testing positive no change in management at this time per ID ?? #Severe Vitamin D Deficiency #Fragility Fracture - ergocalciferol 50,000U weekly x8 weeks (to end 10/13) - calcium via tube feed - Endocrinology consult ?>??will follow up when d/c from hospital - DXA after discharge - future anabolic agent after recovery from vitamin D deficiency ?? #Bilateral lower extremity neuropathic pain -Continue gabapentin. Increase to 300 mg TID on 09/21 DIET: NPO, tube feeds ACCESS: PIV LINES/TUBES: G tube, external Mcrae catheter Ppx: LMWH CODE: full FAMILY UPDATE: spoke with at the bedside 09/21, 09/22 LABS: daily BMP DISPO: plan for home with family 09/25 Team Pager( Coverage 30/11): #[phone] PCP: Chris Stanley APRN [phone] Attestation: Attending Attestation and Certification I have examined the patient myself and personally reviewed all studies. In addition, I certify thatI am a D-H credentialed attending provider with admitting privileges and that the patient meets or has met medical necessity to require an inpatient IPI level of care meeting a minimum of two midnights or is on the CMS inpatient only procedure list (status C) due to: the patient has met Inpatient IPI criteria and is awaiting rehabilitation or [facility] facility placement with active referrals in process Jose Mcleod MD 09/22/2022 * Jenn Staples PA - 09/22/2022 7:46 AM EDT ORTHOPAEDIC SURGERY INPATIENT PROGRESS NOTE Patient Name: Ishan Irving Age: 62 y.o. Surgery/Issue: concern for septic arthritis s/p ORIF of the L Hip Fx at [facility] Attending: David Lynne MD Date of surgery: 08/09/2022 SUBJECTIVE / INTERVAL HISTORY: Ms Irving is a 62 y.o. woman with a history of L femoral neck fracture,??bipolar disorder, resolving medication-induced Parkinsonism, insulin- dependent diabetes mellitus,??hx of alcohol use disorder (reported to be in remission for 1.5 years) c/b chronic pancreatitis, iron deficiency anemia,??GE RD??c/b??esophagitis &??Farrell's esophagus, who was admitted to [facility] on 08/14/2022??for mixed shock and stress cardiomyopathy who transferred to Hospital Medicine due to persistent dysphagia. Per primary team patient remains clinically stable. Ms Irving is being seen today by orthopedics for 1 month surveillance check of possible septic arthritis s/p ORIF of Right hip performed by Dr. Lynne at [facility] on 08/09/2022. Today Patient reports thatshe is doing well and is going home on Wednesday. Per primary team PT/OT are recommending Rehab but family may be able to provide 30/11 care. Primary team states they will continue to monitor how patient's function improves over the next few days for consideration of possible DC home. No issues overnight. Pt is afebrile and WBC of 6.5 on 09/20. Patient reports ambulating with PT. Shestates hip is not painful. She is reporting bilateral peripheral numbness and tingling in her feet that is new during this admission. Taking gabapentin with limited effect. Patient offers no other complaints. Pain is well controlled, denies CP or SOB. FOCUSED REVIEW OF SYSTEMS: as above. Active Hospital Problems Diagnosis ??? Bipolar disorder ??? T2DM (type 2 diabetes mellitus) Resolved Hospital Problems Diagnosis Date Resolved ??? Shock 08/22/2022 Active Non-Hospital Problems Diagnosis ??? Neuroleptic-induced parkinsonism ??? BMI 37.0-37.9, adult ??? GERD (gastroesophageal reflux disease) ??? Farrell's esophagus MEDICATIONS: ??? insulin glargine-ygfn (Semglee) (100 unit/mL) subcutaneous injection vial 10 Units ??? gabapentin (Neurontin) capsule 300 mg ??? prochlorperazine (Compazine) tablet 10 mg ??? POCT Fingerstick Glucose AND insulin lispro (HumaLOG;Admelog) (100 unit/mL) subcutaneous injection vial 1-10 Units ??? acetaminophen (Tylenol) tablet 650 mg ??? tube feeding diet ??? protein powder ??? ondansetron (Zofran) tablet 8 mg ??? pantoprazole DR (Protonix) granules 40 mg ??? polyethylene glycoL (Miralax) packet 17 g ??? spironolactone (Aldactone) (2 mg/mL) oral liquid 12.5 mg ??? metoproloL tartrate (Lopressor) tablet 25 mg ??? atorvastatin (Lipitor) tablet 80 mg ??? buPROPion (Wellbutrin) tablet 100 mg ??? ergocalciferoL (vitamin D2) (8,000 units/mL) oral liquid 50,000 Units ??? ferrous sulfate (60 mg/mL) oral liquid 300 mg ??? folic acid (Vitamin B9) tablet 1,000 mcg ??? melatonin tablet 6 mg ??? QUEtiapine (SEROquel) tablet 100 mg ??? sacubitriL-valsartan (Entresto) 24-26 mg per tablet 1 tablet ??? Valproate (Depakene) (50 mg/mL) oral liquid 300 mg ??? thiamine (Vitamin B1) tablet 100 mg ??? empagliflozin (Jardiance) tablet 10 mg ??? diclofenac (Voltaren) gel ??? senna (Senokot) tablet 8.6 mg ??? bisacodyL (Dulcolax) suppository 10 mg ??? enoxaparin (Lovenox) (40 mg/0.4 mL) subcutaneous injection 40 mg ??? chlorhexidine (Peridex) 0.12 % oral solution 15 mL ??? sodium chloride 0.9 % (flush) (BD PosiFlush Normal Saline 0.9) flush 5 mL ??? sodium chloride 0.9 % (flush) (BD PosiFlush Normal Saline 0.9) flush 5-20 mL ??? lidocaine (Xylocaine) 1% (10 mg/mL) injection 3 mg ??? glucose (Glutose) 40% oral geL OR dextrose 10% infusion OR glucagon (Glucagen) (1 mg/mL) injection solution 1 mg ??? tube feeding diet 1,008 mL (09/24/22 0616) OBJECTIVE: Temp: [36.4 ??C (97.5 ??F)-36.9 ??C (98.4 ??F)] Heart Rate: [74-88] Resp: [15-16] BP: (98-122)/(48-64) Intake/Output Summary (Last 24 hours) at 09/24/2022 1307 Last data filed at 09/24/2022 1200 Gross per 24 hour Intake 1126 ml Output 350 ml Net 776 ml BMI: Weight: 63.2 kg (139 lb 6.4 oz) (09/22/22 0642) BMI (Calculated): 31.77 BMI Classification: Obese Body mass index is 27.22 kg/m??. PE: General: awake/alert, responds to questions, flat affect CV: RRR assessed peripherally Resp: Breathing comfortably on RA LLE: Incision is well healed. Skin is c/d/i. Hip is NTTP. Sensory intact to light touch in lat fem cut/fem/sural/saph/SP/DP/T Motor intact to FHL/EHL/TA, knee extension/flexion, hip extension/flexion Brisk capillary refill distally, foot warm/well-perfused Lab Results Component Value Date NA 139 09/24/2022 K 4.5 09/24/2022 CL 100 09/24/2022 CO2 30 09/24/2022 BUN 31 (H) 09/24/2022 CREATININE 0.69 (L) 09/24/2022 GLUCOSE 188 09/24/2022 CALCIUM 10.0 09/24/2022 Lab Results Component Value Date WBC 6.8 09/23/2022 HGB 11.5 (L) 09/23/2022 HCT 38.4 09/23/2022 MCV 80.3 (L) 09/23/2022 PLATELET 222 09/23/2022 Lab Results Component Value Date INR 2.0 08/15/2022 IMAGIN09/14/2022: Radiographs including AP and lateral images of the left hip show internal fixation of a femoral neck fracture. Overall alignment is unchanged however there is mild shortening of the femoral neck appreciated. ASSESSMENT / PLAN: Ishan Irving is a 62 y.o. female 6 weeks s/p ORIF of right femoral neck fracture being seen today for follow up to question of septic arthritis on 08/21/22. On 08/27/22 patient's hip pain had resolved and patient was afebrile. Pt continues to have minimal/no hip pain and isafebrile with WBC of 6.5 most recently. Pt continues to not show evidence of infection. Recommend patient follow up with Orthopedic surgeon at [facility] for continued surveillance of fracture healing. No further follow up with Orthopedics at [facility] is necessary. Orthopedics will sign off at this time. Please page [phone] with any questions or concerns that may arise. - Activity: WBAT LLE - DVT prophylaxis: Per primary - Antibiotics: Per primary - Diet: Per primary Jenn Staples PA-C 09/24/2022 Future Appointments Date Time Provider Department Center 09/25/2022 9:00 AM [facility] IR RECOVERY MH IR [facility] Rad 11/12/2022 11:30 AM Dixie Tadeo MD [facility] * Xochitl Brooks RN - 09/22/2022 5:03 AM EDT OUTCOME EVALUATION NOTE: OUTCOME SUMMARY: Pt A&O X4. VS as charted on RA. Meds given per JUL, crushed through the PEG tube. Tube feed Nutren 1.5 cyclic 9437-8461. Pt c/o of tenderness in her L foot. No acute changes over shift. Continue monitor. PLAN MOVING FORWARD: Tube feeding BG monitoring D/C planning Daily weight ?? INDIVIDUALIZED FALL PREVENTION INTERVENTIONS: Patient-specific fall risk factors per assessment: [current deficits]: gen weakness, pain, IV sites Assistance [level of assistance required for transfers and ambulation]: 2 A w walker Supervision [direct monitoring required during toileting and ADLs]: Hands on/eyes on Surveillance [continuous indirect monitoring]: Purposeful rounding, room near nursing station, calllight within reach Patient-specific fall prevention interventions for sensory deficits provided, if applicable: yes CARE PLAN GOAL OUTCOME EVALUATION: * Jose Mcleod MD - 09/21/2022 2:59 PM EDT Hospital Medicine Attending Daily Progress Note Admit Date: 08/14/2022 Hospital Day 38 days Active Hospital Problems Diagnosis ??? Bipolar disorder ??? T2DM (type 2 diabetes mellitus) Resolved Hospital Problems Diagnosis Date Resolved ??? Shock 08/22/2022 PMH Active Non-Hospital Problems Diagnosis ??? Neuroleptic-induced parkinsonism ??? BMI 37.0-37.9, adult ??? GERD (gastroesophageal reflux disease) ??? Farrell's esophagus Inpatient Medications: Scheduled ? ? insulin lispro 1-10 Units Subcutaneous 4 Times Daily AC & HS ??? acetaminophen 650 mg Per G Tube 4 Times Daily ??? protein powder 2 Scoop Per G Tube Daily ??? pantoprazole DR 40 mg Per G Tube BID ??? spironolactone 12.5 mg Per G Tube Daily ??? metoproloL tartrate 25 mg Per G Tube 2 times per day ??? gabapentin 100 mg Per G Tube TID ??? atorvastatin 80 mg Per G Tube QPM ??? buPROPion 100 mg Per G Tube Daily ??? ergocalciferoL (vitamin D2) 50,000 Units Per G Tube Weekly ??? ferrous sulfate 300 mg Per G Tube Every Other Day ??? folic acid 1,000 mcg Per G Tube Daily ??? melatonin 6 mg Per G Tube Nightly ??? QUEtiapine 100 mg Per G Tube Nightly ??? sacubitriL-valsartan 1 tablet Per G Tube BID ??? valproic acid 300 mg Per G Tube Q6H ??? thiamine 100 mg Per G Tube Daily ??? empagliflozin 10 mg Oral Daily ??? enoxaparin 40 mg Subcutaneous Daily ??? chlorhexidine 15 mL Oral BID ??? sodium chloride 0.9 % (flush) 5 mL Intravenous BID Continuous infusions: ??? tube feeding diet 72 mL/hr at 09/21/22 0619 ??? tube feeding diet Stopped (09/17/222218) PRN: prochlorperazine, ondansetron, polyethylene glycoL, diclofenac, senna, bisacodyL, sodium chloride 0.9 % (flush), lidocaine, glucose 40% oral geL OR dextrose 10% OR glucagon Interval History: - no acute overnight events - this morning she denies any significant complaints other than ongoing paresthesias of the bilateral feet, L>R - is at the bedside and is advocating for patient to return home with family support on Monday 09/25 ROS: negative except as noted above Physical Exam Vitals Range last 24 hrs Temperature Temp: [36.6 ??C (97.9 ??F)-37 ??C (98.6 ??F)] Heart Rate Heart Rate: [78] Blood Pressure BP: (110-115)/(53-57) Respiratory Rate Resp: [16] SpO2 SpO2: [94 %-99 %] Intake/Output Summary (Last 24 hours) at 09/21/2022 1459 Last data filed at 09/21/2022 0800 Gross per 24 hour Intake 220 ml Output 1051 ml Net -831 ml Patient Vitals for the past 168 hrs: Weight 09/21/22 0543 67.7 kg (149 lb 3.2 oz) 09/20/22 0541 65.1 kg (143 lb 8.3 oz) 09/19/22 0554 67 kg (147 lb 9.6 oz) 09/18/22 0543 66.7 kg (147 lb 0.8 oz) 09/17/22 0540 64.4 kg (142 lb) 09/16/22 1557 67.6 kg (149 lb) 09/16/22 0500 64.8 kg (142 lb 14.4 oz) Body mass index is 29.14 kg/m??. GEN: chronically ill appearing woman, lying in bed HEENT: MMM PULM: no increased work of breathing EXT: full strength at the bilateral knees and hips. 4/5 with bilateral ankle dorsiflexion and plantar flexion Studies reviewed in eDH. Remarkable for the following: LABS: Last 3 wbc, hgb, hct plt Recent Labs 09/20/22 0506 09/16/22 0308 09/15/22 0300 WBC 6.5 6.7 5.9 HGB 11.1* 10.7* 10.2* HCT 36.8 35.6* 34.4* PLATELET 232 242 252 Last 3 Lytes Recent Labs 09/21/22 0554 09/20/22 0506 09/19/22 0439 NA 137 135 134* K 4.6 4.9 4.6 CL 101 99 98 CO2 27 26 27 BUN 23* 23* 21* CREATININE 0.51* 0.50* 0.52* Last 3 LFTs Recent Labs 08/20/22 1400 08/15/22 0950 08/15/22 0305 AST 39* 21 25 ALT 20 12 13 ALKPHOS 213* 102 99 BILITOT <0.2* <0.2* 0.2 BILIDIR 0.1 0.1 0.1 FSBG Trend Recent Labs 09/21/22 1127 09/21/22 0700 09/20/22 2325 09/20/22 2119 09/20/22 1609 09/20/22 1106 09/20/22 0539 09/19/22 2253 09/19/22 2051 09/19/221956 POCGLU 221* 211* 166 291* 221* 221* 187 209* 329* 275* MICRO: No results for input(s): URINECULTURE in the last 720 hours. No results for input(s): GRAMSTAIN, BFCX, LOWERRESPCX, TISSUECX in the last 720 hours. No results for input(s): BLOODCX in the last 720 hours. ECG: Recent Labs 09/07/22 0635 DIAGLINE Normal sinus rhythm with sinus arrhythmia Low voltage QRS T wave abnormality, consider anterolateral ischemia Abnormal ECG When compared with ECG of 01-SEP-2022 02:24, No significant change was found I personally reviewed the tracing and edited the fellows interpretation Confirmed by fellow Niurka Rose ([id number]) on 09/07/2022 8:45:34 AM Confirmed by MD ALEJANDRA, RICHARD ([id number]) on 09/07/2022 1:55:43 PM QTCCALC 455 VASCULAR: No results for input(s): VBTEXTRPT in the last 720 hours. IMAGING: No recent imaging Assessment: Ms Irving is a 62 y.o. woman with a history of L femoral neck fracture,??bipolar disorder, resolving medication-induced Parkinsonism, insulin- dependent diabetes mellitus,??hx of alcohol use disorder (reported to be in remission for 1.5 years) c/b chronic pancreatitis, iron deficiency anemia,??GERD??c/b??esophagitis &??Farrell's esophagus, who was admitted to [facility] on 08/14/2022??for mixed shock and stress cardiomyopathy who transferred to Hospital Medicine due to persistent dysphagia. ?? Patient remains clinically stable. Patient reports that she would like to go home as soon as possible and not go to rehab. reports being anxious that she is not receiving the amount of physical therapy that she needs while inpatient and feels that they would be able to provide 24/7 care forpatient with his son and patient's sister present next week. Will try to see how patient's functionimproves over the next few days. ?? #Medication-induced Parkinsonism #Dysphagia #Esophageal stricture?? #GERD c/b Farrell's esophagus & esophagitis - f/u with GI outpatient for severe stricture - G tube in place as of 09/11 - Continue tube feeds via G tube - Will need retention anchors out in 7-10 days??postplacement, ordered by IR, scheduled for 09/25 at9 AM ?? #Acute hypoxic respiratory failure, resolved #Bilateral airspace opacities/multifocal pneumonia, resolved -??Respiratory support with LFNC PRN - Antibiotics: Status post zosyn for pneumonia - Fungitell and Fungal Cx positive, no change in management per ID - CT Chest showed persistent pneumonia; ID followed, patient completed course of antibiotics ?? #Distributive Shock, resolved #NSTEMI Type I vs Type II, resolved #HFrEF (EF 25%) #Stress Cardiomyopathy - Will not perform LHC given results of CTA coronary arteries - ASA 81mg - Entresto 24-26 1 tab BID -??Continue metoprolol tartrate 25 mg twice daily -??Continue spironolactone 12.5 mg daily - Empagliflozin 10mg as part of GDT - She will need a repeat TTE after 3 months (~11/18) - Mg >1, K >4 ?? #Constipation- resolved #Rectal wall edema 2/2 stool ball - Has Miralax, senna, dulcolax PRN ordered - Continue home pantoprazole 40 BID ?? #Insulin-dependent diabetes -??Diabetes Management consulted, appreciate recs ?? #Mixed JERRICA and ACD - Oral iron supplementation started 08/21 ?>??s/p 1 dose of Venofer - Ferritin, Iron, TIBC resulted; mixed picture - Transfuse for Hb <8 - S/p 1u pRBC 08/22 ?? #Septic shock #Bilateral airspace opacities/multifocal pneumonia #L Hip Fluid Collection #Subcentimeter left posterior upper lobe cavitary lesions - Infectious work-up initially did not yield any clear causative organisms - S/p BAL 08/21 without any growth to date. - IR, orthopedic surgery consulted for evaluation of L hip fluid collection. No intervention/drainable target. - Stopped zosyn as per ID (08/14- 08/23) - Fungal testing positive no change in management at this time per ID ?? #Severe Vitamin D Deficiency #Fragility Fracture - ergocalciferol 50,000U weekly x8 weeks (to end 10/13) - calcium via tube feed - Endocrinology consult ?>??will follow up when d/c from hospital - DXA after discharge - future anabolic agent after recovery from vitamin D deficiency ?? #Bilateral lower extremity neuropathic pain -Continue gabapentin. Increase to 300 mg TID on 09/21 DIET: NPO, tube feeds ACCESS: PIV LINES/TUBES: G tube, external Mcrae catheter Ppx: LMWH CODE: full FAMILY UPDATE: spoke with at the bedside 09/21 LABS: daily BMP DISPO: plan for home with family 09/25 Team Pager(MD Coverage 30/11): #[phone] PCP: Chris Stanley, CELL OPERATION SUPERVISOR [phone] Attestation: Attending Attestation and Certification Please see Jose Mcleod MD's note for details of the patient history of presentation and data. I have discussed, reviewed and agree with the documented History, Physical findings, Assessment and Plan of care. I have examined the patient myself and personally reviewed all studies. In addition, I certify thatI am a D-H credentialed attending provider with admitting privileges and that the patient meets or has met medical necessity to require an inpatient IPI level of care meeting a minimum of two midnights or is on the CMS inpatient only procedure list (status C) due to: the patient has met Inpatient IPI criteria and is awaiting rehabilitation or [facility] facility placement with active referrals in process Jose Mcleod MD 09/21/2022 * Feroz Portillo, STONE BREAKER - 09/21/2022 1:50 PM EDT Physical Therapy Note Treatment Number PT: 13 Patient profile: Ishan Irving is a 62 y.o. female admitted on 08/14/2022 with a medical history notable for??recent L femoral neck fracture,??bipolar disorder, resolving medication-induced Parkinsonism, insulin-dependent diabetes mellitus,??hx of alcohol use disorder (reported to be in remission for 1.5 years) c/b chronic pancreatitis, iron deficiency anemia,??GERD??c/b??esophagitis &??Farrell's esophagus??presenting in transfer from [facility], suspected to be in cardiogenic shock and found to be in mixed shock with concern for stress cardiomyopathy. She is s/p ORIF left femoral neck fracture ~ 08/08 at OSH. Interval History: Uneventful Social History: single level home w ramp to enter. 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 Pt drives, does all community chores. Does have a RW avail at home which she had been using since ORIF. Fall Hx: Spouse reports that pt slipped in a puddle of water left by the dog which is the cause of her hip fx Precautions/Special Considerations: WBAT L leg, Fall risk Mobility and Positioning Recommendations: ?? Pt able to stand pivot transfer and ambulate room distances with FWW and 1 assist ?? Encourage short distance ambulation with FWW, 1 assist ?? Please encourage up to chair for meal times as able. Subjective: I'm feeling a little nauseous after ambulating 35 ft Objective: Patient seen for physical therapy and demonstrated the following: Pain: no c/o pain Vital Signs: stable on room air. ?? Pt in recliner chair, agreeable to therapy ?? Nursing donning brief and mesh underwear in sitting ?? Sit to stand to FWW, UE push off, Min A, pulled up brief and underwear in standing ?? Ambulated 10 ft to wheelchair with FWW and CGA, cues for turning around fully and slow controlled descent when sitting ?? Brought up to in-pt gym ?? Stand pivot transfer to and from Nu step, FWW, Min A, cues for UE push off and one hand on walker, count to three ?? Nu step for 5 minutes, steady pacing, monitor not working ?? Sit<->stand x 3 in the // bars, Min A, cues for anterior weight shifting ?? Step up/down x 2 on 6 inch step, three reps, seated rest break in between each rep ?? Sit<->stand x 4 from w/c to FWW, UE push off and one hand on walker, Min A, count to three ?? Ambulated 15 ft x 2, 20 ft, 35 ft, FWW, CGA, short steps, no chair follow provided, encouraged and reassured pt she could make the distances ?? Seated rest breaks in between walks ?? Brought back to pt's room ?? Stand pivot transfer from w/c to bed, FWW and Min A, doffed brief in standing ?? Pt left supine in bed with bed alarm on, all needs met, following visit. Education: Progressing ambulation distances, using UE's to assist with standing and working on stairs Assessment: Ishan Irving was seen today for physical therapy treatment session for continuation of POC. Improved gait distances and did not provide chair follow today. Benefits from reassurance and encouragement for longer distance walks but is demonstrating safe and steady room distances at this time. present and reports pt has many chairs at home to sit and rest in when ambulating and will have / assist available on Monday 09/25. Will follow up with pt one more time to practice stairs and household ambulation distances, but pt will be safe to d/c home with /7 family assist and home PT/OT/RN services. Pt will benefit from ongoing therapeutic interventions to achieve therapy goals. Discharge Recommendations: Based on the current findings, Anticipated Discharge Disposition (PT): home with home health, home with supervision (/ assist) when medically ready for hospital discharge. Consult Recommendations: No other consults recommended at this time. Equipment needs: none Anticipated Equipment Needs at Discharge (PT): None Physical Therapy Goals: To be achieved by 09/24/22: Ongoing ?? 1. Pt. will demonstrate understanding of appropriate exercises and perform them independently or with family. 2. Pt. will perform bed mobility with modified independence. 3. Pt. will perform sit to stand transfers with min A using a front wheeled walker. Met 4. Pt. Will perform sit to stand transfers with CGA using a front wheeled walker. 5. Pt. will ambulate 10 feet with mod A using a front wheeled walker. Met 6. Pt. Will ambulate 25 with CGA using a front wheeled walker. Met 7. Pt. will ascend/descend step/stairs sufficient for home using rail and assist of 1 Plan: Therapy Frequency (PT): 2-4 times/wk for skilled PT rx as outlined in initial evaluation. Patient agrees with plan as stated. Time IN / OUT: 13:05-13:50 Total Minutes, Physical Therapy: 45 Billing Code: TE-F x 3 FEROZ PORTILLO PTA Pager: [phone] Physical Therapy Inpatient Rehabilitation Department * Wilda Blankenship, RD - 09/21/2022 12:11 PM EDT Nutrition Progress Note Ishan M Irving??is a 62 y.o.??female??with h/o bipolar, DM, EtOH, esophagitis, who presented to [facility] 3 days ago after being found unresponsive at home.?Patient found to have likely pneumonia+/- aspiration, newly reduced EF. Reason for Assessment: Tube Feeding, Follow-up Nutrition Recommendations: Suggest Cyclic Nutren 1.5 at 72 ml per hour plus 2 scoops of protein powder 14 hrs from 1182-2599 -pended At goal, this will provide: Nutren 1.5 Total Volume Per Day: 1008 mL Calories per Day: 1512 Protein per Day: 69 g Free Water mL per Day: 770 % RDI: 101 % Plus additional 12 g protein from Beneprotein scoops Monitor hydration status on above TFs as they are concentrated. Pt may need additional fluids depending on IVFs, med flushes, p.o. Intake, etc. ?? Po diet per [employer] (recs 09/04 NPO s/p MBS) ?? Continue 50,000 units vitamin D weekly; 1000 mcg folic acid and 100 mg thiamine daily. Recheck vitamin D in November Current Nutrition Regimen: Active Orders Diet Sips and Chips (Hold Meds) Frequency: Effective Now Number of Occurrences: Until Specified Order Comments: Sips and chips for comfort. Administer meds via G tube All Active TF Orders: Tubefeeding Orders (From admission, onward) Start Dose/Rate Route Frequency Ordered Stop 09/18/22 0600 tube feeding diet 1,008 mL 72 mL/hr Per G Tube Cyclic-(Tube feed) 09/17/22 1427 09/12/22 1330 tube feeding diet 1,260 mL 90 mL/hr Per G Tube Cyclic-(Tube feed) 09/12/22 1236 Average tube feeding provision over past 3 days: I/o not consistently completed TF volume ?? Tolerance or barriers to meeting needs: tolerating Assessment: Lab Results Component Value Date NA 137 09/21/2022 K 4.6 09/21/2022 CL 101 09/21/2022 CO2 27 09/21/2022 BUN 23 (H) 09/21/2022 CREATININE 0.51 (L) 09/21/2022 ESTGFR 105 09/21/2022 MAGNESIUM 0.84 09/21/2022 CALCIUM 9.8 09/21/2022 PHOS 4.0 09/21/2022 AST 39 (H) 08/20/2022 ALT 20 08/20/2022 ALKPHOS 213 (H) 08/20/2022 BILITOT <0.2 (L) 08/20/2022 BILIDIR 0.1 08/20/2022 TRIG 127 08/29/2022 CRP 19.4 (H) 08/21/2022 HA1C 6.2 (H) 08/15/2022 25OHVITD 12 (L) 08/24/2022 IRON 25 (L) 08/21/2022 Lab Results Component Value Date POCGLU 221 (H) 09/21/2022 POCGLU 211 (H) 09/21/2022 POCGLU 166 09/20/2022 POCGLU 291 (H) 09/20/2022 POCGLU 221 (H) 09/20/2022 Patient Lines/Drains/Airways Status Active Nutritional LDAs Name Placement date Placement time Site Days Enterostomy Tube 09/11/221651 gastrostomy tube with balloon LUQ (left upper quadrant) feeding 09/11/221651 -- 10 Peripheral IV Line - Single Lumen 09/21/22 0248 cephalic vein (lateral side of arm), right -- less than 1 External Catheter 09/13/22 2344 09/13/22 234 -- 8 Physical Findings Gastrointestinal: feeding tube Oxygen Therapy / Airway Device: None (Room air) Shift Pressure Injury Prevention Occiput: No Injury Thoracic Spine: No Injury Sacral: No Injury Ischial - left: No Injury Ischial - right: No Injury Heel - left: No Injury Heel - right: No Injury Elbow - left: No Injury Elbow - right: No Injury Device Sites: O2 sat monitor Other Sites: PEG Last Bowel Movement: 09/20/22 Intake/Output Summary (Last 24 hours) at 09/21/2022 1212 Last data filed at 09/21/2022 0800 Gross per 24 hour Intake 220 ml Output 1051 ml Net -831 ml Relevant medications: viatmin D2, ferrous sulfate, folic acid, insulin: correction, protoinx, aldactone, thimain, valporate Anthropometrics: Admit Weight: 69 kg Estimated body mass index is 29.14 kg/m?? as calculated from the following: Height as of 08/19/22: 152.4 cm (5'). Weight as of this encounter: 67.7 kg (149 lb 3.2 oz). [place] Body Weight (IBW) (kg): 45.45 Usual Body Weight: 70.3 kg (155 lb) Weight Loss: unintentional Duration of Weight Loss: 1 Month (since admission) Weight Lost: 4.7kg % of Weight Lost: 6.8% Wt Readings from Last 10 Encounters: 09/21/22 67.7 kg (149 lb 3.2 oz) 08/19/22 73.1 kg (161 lb 2.5 oz) 07/03/22 69.9 kg (154 lb) 03/31/22 74.4 kg (164 lb) 02/12/22 78.7 kg (173 lb 9.6 oz) 09/23/21 78.5 kg (173 lb) 03/01/20 79.4 kg (175 lb) 11/22/18 80.3 kg (177 lb) 12/13/14 86.5 kg (190 lb 12.8 oz) 03/20/14 94 kg (207 lb 3.7 oz) Patient Vitals for the past 168 hrs: Weight 09/21/22 0543 67.7 kg (149 lb 3.2 oz) 09/20/22 0541 65.1 kg (143 lb 8.3 oz) 09/19/22 0554 67 kg (147 lb 9.6 oz) 09/18/22 0543 66.7 kg (147 lb 0.8 oz) 09/17/22 0540 64.4 kg (142 lb) 09/16/22 1557 67.6 kg (149 lb) 09/16/22 0500 64.8 kg (142 lb 14.4 oz) Weight Source: Bed Estimated / Assessed Needs: Kcal / K - 1737.5 Kcal (20 Kcal/Kg - 25 Kcal/Kg) Estimated Protein Needs: 83.4 - 104.25 g (1.2 g/Kg - 1.5 g/Kg) Nutrition intake and intake history / interview: 09/21: Met with Ishan and . tolerating TF without reported issues. All questions answered at this time 09/17: Pt w/ clinically significant wt loss since admission, but seems to be relatively stable in the last 2 weeks. Pt does report constant mild nausea while TF is running and while they are off, but patient does not want to have feeds stopped d/t this. Will transition to standard formula w/ pendingdischarge. 09/14: Met with Ishan and at bedside, tolerating TF with no reported concerns. All questionregarding TF/ nutrition answered at this time. Nutrition Focused Physical Exam: Not performed Malnutrition Diagnosis: Not enough data to assess (Andrea, JPEN J Parenteral Enteral Nutr. 2011; 36(3): 273-83) Nutrition to continue to follow up while inpatient THANKS Wilad Blankenship RD Pager #:[phone] * Siobhan Harper LPN - 09/20/2022 11:27 PM EDT Patient alert Ox4, complained of foot pain, elevated feet with pillows. Offered her gabbie stocking, she stated she will try them tomorrow. Fs- 2118 was 291, insulin was given per MAR orders. Rechecked insulin in 2hrs per orders. Fs- 2219 was 166. 0600 Nutren 1.5 started, incontinent of urine (purewick placed), powder was placed. Repositioned independently. * Olamide Stallings MD - 09/20/2022 8:14 AM EDT Hospital Medicine Attending Daily Progress Note Date of Admission: 08/14/2022 ( Hospital Day 37 days ) ID: 62 y.o. female with PMH of L femoral neck fracture,??bipolar disorder, resolving medication-induced Parkinsonism, insulin-dependent diabetes mellitus,??hx of alcohol use disorder (reported to be in remission for 1.5 years) c/b chronic pancreatitis, iron deficiency anemia,??GERD??c/b??esophagitis &??Farrell's esophagus, who was admitted to [facility] on 08/14/2022 (now on Hospital Day #23)??for mixed shock and stress cardiomyopathy who transferred to Hospital Medicine due to persistent dysphagia. Hospital Problem List: Active Hospital Problems Diagnosis ??? Bipolar disorder ??? T2DM (type 2 diabetes mellitus) Resolved Hospital Problems Diagnosis Date Resolved ??? Shock 08/22/2022 PMH: Past Medical History: Diagnosis Date ??? Bipolar disorder 02/12/2022 24 Hour Events/Subjective: - No acute events overnight - Reports that numbness in left foot is stable from yesterday - Denies chest pain, palpitations, shortness of breath Inpatient Medications: Scheduled Meds: ? ? insulin lispro 1-10 Units Subcutaneous 4 Times Daily AC & HS ??? acetaminophen 650 mg Per G Tube 4 Times Daily ??? protein powder 2 Scoop Per G Tube Daily ??? pantoprazole DR 40 mg Per G Tube BID ??? spironolactone 12.5 mg Per G Tube Daily ??? metoproloL tartrate 25 mg Per G Tube 2 times per day ??? gabapentin 100 mg Per G Tube TID ??? atorvastatin 80 mg Per G Tube QPM ??? buPROPion 100 mg Per G Tube Daily ??? ergocalciferoL (vitamin D2) 50,000 Units Per G Tube Weekly ??? ferrous sulfate 300 mg Per G Tube Every Other Day ??? folic acid 1,000 mcg Per G Tube Daily ??? melatonin 6 mg Per G Tube Nightly ??? QUEtiapine 100 mg Per G Tube Nightly ??? sacubitriL-valsartan 1 tablet Per G Tube BID ??? valproic acid 300 mg Per G Tube Q6H ??? thiamine 100 mg Per G Tube Daily ??? empagliflozin 10 mg Oral Daily ??? enoxaparin 40 mg Subcutaneous Daily ??? chlorhexidine 15 mL Oral BID ??? sodium chloride 0.9 % (flush) 5 mL Intravenous BID Continuous Infusions: ??? tube feeding diet 1,008 mL (09/20/22 0602) ??? tube feeding diet Stopped (09/17/222218) PRN Meds: ondansetron, polyethylene glycoL, prochlorperazine, ondansetron, diclofenac, senna, bisacodyL, sodium chloride 0.9 % (flush), lidocaine, glucose 40% oral geL OR dextrose 10% OR glucagon Vitals: Last value Range last 24 hrs Temperature Temp: 36.9 ??C (98.4 ??F) Temp: [36.9 ??C (98.4 ??F)] Heart Rate Heart Rate: 82 Heart Rate: -- Blood Pressure BP: 114/62 BP: (114-128)/(62-64) Respiratory Rate Resp: 18 Resp: [18] SpO2 SpO2: 95 % SpO2: [94 %-95 %] Ins/Outs: Intake/Output Summary (Last 24 hours) at 09/20/2022 0814 Last data filed at 09/20/2022 0400 Gross per 24 hour Intake 0 ml Output -- Net 0 ml Physical Exam: Gen: WDWN woman lying in bed in NAD HEENT: NCAT, EOMI CV: Regular rate and rhythm, no murmurs/rubs/gallops Pulm: Normal respiratory effort, speaking normally, no audible respiratory sounds, clear to auscultation bilaterally, normal expiratory phase, no rales/rhonchi/wheezes Abd: +BS, soft, non-tender/distended, no HSM Ext: No pedal edema, 2+ peripheral pulses Skin: Warm, dry, no rashes Neuro: Awake, alert, answers questions appropriately Labs: CBC: Recent Labs 09/20/22 0506 09/16/22 0308 09/15/22 0300 WBC 6.5 6.7 5.9 HGB 11.1* 10.7* 10.2* PLATELET 232 242 252 Chemistry: Recent Labs 09/20/22 0506 09/19/22 0439 09/18/22 0453 NA 135 134* 136 K 4.9 4.6 4.5 CL 99 98 100 CO2 26 27 27 BUN 23* 21* 18 CREATININE 0.50* 0.52* 0.53* GLUCOSE 206* 194 197 Recent Labs 09/20/22 0506 09/19/22 0439 09/18/22 0453 CALCIUM 9.6 9.3 9.5 MAGNESIUM 0.83 0.82 0.79 PHOS 3.5 3.3 3.2 LFT's: Recent Labs 08/20/22 1400 08/15/22 0950 08/15/22 0305 BILITOT <0.2* <0.2* 0.2 BILIDIR 0.1 0.1 0.1 ALBUMIN 2.5* 2.4* 2.4* ALKPHOS 213* 102 99 ALT 20 12 13 AST 39* 21 25 Microbiology: None new Pertinent Radiology/Diagnostic Studies: CT Chest wo Contrast (08/27/2022) Stable findings of multifocal pneumonia. No interval abnormality. CT Chest w Contrast (08/21/2022) 1. Multifocal lower lobe predominant consolidative opacities with additional upper lobe opacities consistent with multifocal pneumonia. Compared to the prior CT of 08/12/2022 the number and size of theopacities has decreased. Recommend follow-up imaging in 3-6 months to document complete resolution.2. New small, sub-1 cm early cavitation of multiple opacities predominantly within the posterior left upper lobe and left lower lobe. 3. New curvilinear splenic lesions could represent infarct versuslate arterial phase splenic arterial opacification. XR Abdomen 1 view (09/10/2022) Dobbhoff with tip at the level of the pyloric region. XR Abdomen 1 view (09/04/2022) 1. On the chest radiograph at 2136 hours the enteric tube projects over the mid esophagus. On the abdominal radiograph at 2139 hours the enteric tube now projects below the diaphragm with tip partially visualized projecting over the left mid abdomen. 2. Lower lobe predominant patchy and reticular airspace opacities consistent with sequela of multifocal pneumonia. The appearance is improved compared to prior radiograph. XR Fluoro Barium Swallow (09/04/2022) 1. Penetration of the airway and aspiration with thin liquids, especially with rapid sips of thin barium. 2. Flash penetration of nectar thick liquids from a straw. 3. Reflux of residual barium within the esophagus on multiple swallows. CT Angiogram Coronary Arteries (08/27/2022) Coronary calcium score of 0, consistent with no detectable calcified atherosclerotic plaque burden.No evidence of stenosing soft plaque on the coronary CT arteriogram. CAD RADS 0 Ongoing bilateral pulmonary infectious/inflammatory changes with persistent consolidative opacity especially in the left lower lobe. This could represent a multifocal pneumonia. Recommend follow-up CT in 3 months to assess for resolution. XR Pelvis (08/22/2022) No radiographic evidence of infection status post left hip ORIF. IR G-Tube Placement (09/11/2022) IR PROCEDURE NOTE ?? Procedure: Gastrostomy tube placement. ?? Indication for Procedure:Per Ishan Zarate??is a 62 y.o.??female??with history of left femoral neck fracture, bipolar, alcohol use disorder, chronic pancreatitis, GERD complicated by esophagitis and Farrell's esophagus admitted with mixed shock with concern for stress cardiomyopathy with dysphagia noted postintubation failing modified barium swallow tests. ??Patient referred for percutaneous gastrostomy catheter placement with IR after failed endoscopic attempt due to esophageal stricture. ?? Procedure events and findings:??Patient was positioned supine on the procedure table under anesthesia. Prophylactic antibiotic Ancef 2g IV was administered. ??The epigastrium was prepared in sterile fashion after U/S to determine the left lateral and caudal??extent of the liver. ??Maximum sterile barrier technique was used throughout. ??A 4 Bulgarian glide catheter??was placed??as a??nasoenteric tube??under fluoroscopy with the aid of a Glidewire. ??Catheter was??used for insufflation of the stomach. ?? The skinover the stomach was infiltrated with 1% lidocaine for local anesthesia. ??An 18 ga needle was advanced under fluoroscopic guidance into the stomach with return of air and contrast injection showing gastric folds. ??A T anchor was deployed. ??Two additional T anchors were placed in the same manner.??In the triangle formed by the T anchors, an 18ga needle was directed into the gastric lumen, confirmed with aspiration and contrast injection. ? Over an 0.035?guidewire, the tract was dilated using an 8 mm angioplasty balloon. A 16 Fr balloon retained gastrostomy tube was then placed. ??The retention balloon of the gastrostomy tube was filled with 5 cc of sterile water and contrast injec tion via the gastrostomy tube??confirmed location within the gastric lumen. ?? Medications: 1% Lidocaine 20ccs subcutaneous, and as per Anesthesia. Antibiotic Prophylaxis: Ancef 2 g IV. ?? Est Blood Loss: <5cc. ?? Complications: No immediate. ?? Impression: ?? 1. Placement of 16 Fr balloon retained nonlow- profile gastrostomy tube, ready for use. ?? 2. Gastric retention anchors to be released in 7 to 10 days. ?? Resident/Fellow: None. ?? Attending: Dr. Hailey Meredith performed this procedure. XR Hip 2-3 Views Left (09/15/2022) 1. Healed left femoral neck fracture with short femoral neck 2. Maintained post reduction alignmentand no hardware complications. XR Hip 2-3 Views Left (08/22/2022) No radiographic evidence of infection. XR Chest One View (09/05/2022) 1. Reposition enteric tube now extending below the diaphragm and included [id number]. 2. Similarappearance of elevated right hemidiaphragm and linear/patchy bibasilar opacities which may represent atelectasis or possibly aspiration. XR Chest One View (09/04/2022) 1. On the chest radiograph at 2136 hours the enteric tube projects over the mid esophagus. On the abdominal radiograph at 2139 hours the enteric tube now projects below the diaphragm with tip partially visualized projecting over the left mid abdomen. 2. Lower lobe predominant patchy and reticular airspace opacities consistent with sequela of multifocal pneumonia. The appearance is improved compared to prior radiograph. CT Hip w Contrast Left (08/21/2022) 1. Uncomplicated left femoral neck ORIF with unchanged postoperative alignment. 2. Moderate skin thickening and subcutaneous stranding about the lateral left hip with lateral left thigh intramuscularedema and fascial thickening. These findings are nonspecific and may be seen in the routine postoperative setting. Underlying soft tissue infection with infectious or inflammatory myositis may also have this appearance. Correlation with physical examination, clinical symptoms, and laboratory findings is recommended. 3. 2.3 x 1.6 x 1.8 cm focus of more coalescent fluid attenuation centered in the subcutaneous fat of the posterolateral thigh roughly at the level of the proximal femoral fixation screw heads. There is no rim-enhancing to suggest a mature, organized abscess at this time. However, this finding could represent phlegmon in appropriate clinical context, or it could represent a postsurgical collection, the contents of which may be sterile or infected. 4. There is a rectal tube in place. However, there remains a large stool ball in the rectum with free fluid versus coalescent edema on both the anterior and posterior margins of the distended rectum. In appropriate clinical context, these findings could represent proctocolitis or stercoral colitis. Assessment/Plan: 62 y.o. female w/ PMH of L femoral neck fracture,??bipolar disorder, resolving medication-induced Parkinsonism, insulin-dependent diabetes mellitus,??hx of alcohol use disorder (reported to be in remission for 1.5 years) c/b chronic pancreatitis, iron deficiency anemia,??GERD??c/b??esophagitis &??Farrell's esophagus, who was admitted to [facility] on 08/14/2022 (now on Hospital Day #23)??for mixed shock and stress cardiomyopathy who transferred to Hospital Medicine due to persistent dysphagia. ?? Patient remains clinically stable. Patient reports that she would like to go home as soon as possible and not go to rehab. reports being anxious that she is not receiving the amount of physical therapy that she needs while inpatient and feels that they would be able to provide 24/7 care forpatient with his son and patient's sister present next week. Will try to see how patient's functionimproves over the next few days. ?? #Medication-induced Parkinsonism #Dysphagia #Esophageal stricture?? #GERD c/b Farrell's esophagus & esophagitis - f/u with GI outpatient for severe stricture - G tube in place as of 09/11 - Continue tube feeds via G tube - Will need retention anchors out in 7-10 days postplacement, ordered by IR, scheduled for 09/25 at 9 AM ?? #Acute hypoxic respiratory failure, resolved #Bilateral airspace opacities/multifocal pneumonia, resolved -??Respiratory support with LFNC PRN - Antibiotics: Status post zosyn for pneumonia - Fungitell and Fungal Cx positive, no change in management per ID - CT Chest showed persistent pneumonia; ID followed, patient completed course of antibioitics ?? #Distributive Shock, resolved #NSTEMI Type I vs Type II, resolved #HFrEF (EF 25%) #Stress Cardiomyopathy - Will not perform LHC given results of CTA coronary arteries - ASA 81mg - Entresto 24-26 1 tab BID -??Continue metoprolol tartrate 25 mg twice daily -??Continue spironolactone 12.5 mg daily - Empagliflozin 10mg as part of GDT - She will need a repeat TTE after 3 months (~11/18) - Mg >1, K >4 ?? #Constipation- resolved #Rectal wall edema 2/2 stool ball - Has Miralax, senna, dulcolax PRN ordered - Continue home pantoprazole 40 BID ?? #Insulin-dependent diabetes -??Diabetes Management consulted, appreciate recs ?? #Mixed JERRICA and ACD - Oral iron supplementation started 08/21 ?>??s/p 1 dose of Venofer - Ferritin, Iron, TIBC resulted; mixed picture - Transfuse for Hb <8 - S/p 1u pRBC 08/22 ?? #Septic shock #Bilateral airspace opacities/multifocal pneumonia #L Hip Fluid Collection #Subcentimeter left posterior upper lobe cavitary lesions - Infectious work-up initially did not yield any clear causative organisms - S/p BAL 08/21 without any growth to date. - IR, orthopedic surgery consulted for evaluation of L hip fluid collection. No intervention/drainable target. - Stopped zosyn as per ID (08/14- 08/23) - Fungal testing positive no change in management at this time per ID ?? #Severe Vitamin D Deficiency #Fragility Fracture - ergocalciferol 50,000U weekly x8 weeks (to end 10/13) - calcium via tube feed - Endocrinology consult ?>??will follow up when d/c from hospital - DXA after discharge - future anabolic agent after recovery from vitamin D deficiency ?? #Bilateral lower extremity neuropathic pain -Continue gabapentin #Housekeeping: - DVT PPx: Enoxaparin - GI PPx: PPI - Diet: Sips and Chips (Hold Meds), tube feeds - IV/Tubes/Drains: PIV - Code status: Attempt Cardiopulmonary Resuscitation - Inpatient - Dispo: pending course - Contact: Rogelio last updated at bedside on 09/19/2022 IPI Certification I certify that I am a [facility] credentialed attending provider with admitting privileges and that the patient meets or has met medical necessity to require an inpatient IPI level of care meeting a minimumof two midnights or is on the [facility] inpatient only procedure list (status C) due to: the patient has met Inpatient IPI criteria and is awaiting rehabilitation or [facility] facility placement withactive referrals in process Team Pager (MD Coverage 30/11): #[phone] PCP: VAUGHN Whyte MD 09/20/22 * Shirley Thibodeaux RN - 09/20/2022 5:21 AM EDT OUTCOME EVALUATION NOTE: OUTCOME SUMMARY: Pt is A/OX4, VSS on . Pt denies SOB,NVD, chest pain. 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 Pt C/O of acid reflux, PRN Tums given with some positive effect Assessment as documented (see flow sheet). BG monitored and insulin coverage given per JUL. Pt is resting between care. Will continue to monitor and notify MD of any changes. PLAN MOVING FORWARD Tube feeding BG monitoring D/C planning Daily weight INDIVIDUALIZED FALL PREVENTION INTERVENTIONS: Patient-specific fall risk factors per assessment: [current deficits]: Generalized weakness, IV sites, hospital environment Assistance [level of assistance required for transfers and ambulation]: 2 FWW Supervision [direct monitoring required during toileting and ADLs]: Hands on/Eyes on Surveillance [continuous indirect monitoring]: Masimo, room near nursing station, call marshall within reach, purposeful rounding. Patient-specific fall prevention interventions for sensory deficits provided, if applicable: N/A CARE PLAN GOAL OUTCOME EVALUATION: * Xochitl Brooks RN - 09/19/2022 6:46 PM EDT OUTCOME EVALUATION NOTE: ?? OUTCOME SUMMARY: ?? VSS on RA. A&Ox4. Flat affect. Pt c/o nausea and had episode of small vomit of clear color. PRNZofran given. Endorses left foot pain/tingling. MD aware. Incontinent of stool x2 today. Voiding adequate amounts of urine via external catheter. Cyclic TF. Call marshall within reach. at bedside. Safety measures maintained. ?? PLAN MOVING FORWARD: ?? Encourage activity and ambulation PT/OT Discharge planning ?? INDIVIDUALIZED FALL PREVENTION INTERVENTIONS: ?? Patient-specific fall risk factors per assessment: [current deficits]: Weakness, impulsive ?? Assistance [level of assistance required for transfers and ambulation]: 2A with walker ?? Supervision [direct monitoring required during toileting and ADLs]: Hands on ?? Surveillance [continuous indirect monitoring]: Masimo, hourly rounding ?? Patient-specific fall prevention interventions for sensory deficits provided, if applicable: [X] N/A ?? * Olamide Stallings MD - 09/19/2022 8:24 AM EDT Hospital Medicine Attending Daily Progress Note Date of Admission: 08/14/2022 ( Hospital Day 36 days ) ID: 62 y.o. female with PMH of L femoral neck fracture,??bipolar disorder, resolving medication-induced Parkinsonism, insulin-dependent diabetes mellitus,??hx of alcohol use disorder (reported to be in remission for 1.5 years) c/b chronic pancreatitis, iron deficiency anemia,??GERD??c/b??esophagitis &??Farrell's esophagus, who was admitted to [facility] on 08/14/2022 (now on Hospital Day #23)??for mixed shock and stress cardiomyopathy who transferred to Hospital Medicine due to persistent dysphagia. Hospital Problem List: Active Hospital Problems Diagnosis ??? Bipolar disorder ??? T2DM (type 2 diabetes mellitus) Resolved Hospital Problems Diagnosis Date Resolved ??? Shock 08/22/2022 PMH: Past Medical History: Diagnosis Date ??? Bipolar disorder 02/12/2022 24 Hour Events/Subjective: - No acute events overnight - Reports that numbness in left foot is stable from yesterday - Denies chest pain, palpitations, shortness of breath Inpatient Medications: Scheduled Meds: ??? protein powder 2 Scoop Per G Tube Daily ??? pantoprazole DR 40 mg Per G Tube BID ??? spironolactone 12.5 mg Per G Tube Daily ??? metoproloL tartrate 25 mg Per G Tube 2 times per day ??? gabapentin 100 mg Per G Tube TID ??? acetaminophen 650 mg Per G Tube Q6H ??? atorvastatin 80 mg Per G Tube QPM ??? buPROPion 100 mg Per G Tube Daily ??? ergocalciferoL (vitamin D2) 50,000 Units Per G Tube Weekly ??? ferrous sulfate 300 mg Per G Tube Every Other Day ??? folic acid 1,000 mcg Per G Tube Daily ??? melatonin 6 mg Per G Tube Nightly ??? QUEtiapine 100 mg Per G Tube Nightly ??? sacubitriL-valsartan 1 tablet Per G Tube BID ??? valproic acid 300 mg Per G Tube Q6H ??? thiamine 100 mg Per G Tube Daily ??? empagliflozin 10 mg Oral Daily ??? insulin lispro 1-10 Units Subcutaneous Q4H LAZARUS ??? lidocaine 3 patch Transdermal Q24H ??? enoxaparin 40 mg Subcutaneous Daily ??? chlorhexidine 15 mL Oral BID ??? sodium chloride 0.9 % (flush) 5 mL Intravenous BID Continuous Infusions: ??? tube feeding diet 1,008 mL (09/19/22 3193) ??? tube feeding diet Stopped (09/17/22 8627) PRN Meds: ondansetron, polyethylene glycoL, prochlorperazine, ondansetron, diclofenac, senna, bisacodyL, sodium chloride 0.9 % (flush), lidocaine, glucose 40% oral geL OR dextrose 10% OR glucagon Vitals: Last value Range last 24 hrs Temperature Temp: 36.3 ??C (97.3 ??F) Temp: [36.3 ??C (97.3 ??F)-36.9 ??C (98.4 ??F)] Heart Rate Heart Rate: 82 Heart Rate: [82] Blood Pressure BP: 93/50 BP: (93-130)/(50-63) Respiratory Rate Resp: 16 Resp: [15-16] SpO2 SpO2: 94 % SpO2: [94 %-98 %] Ins/Outs: Intake/Output Summary (Last 24 hours) at 09/19/2022 0824 Last data filed at 09/19/2022 0000 Gross per 24 hour Intake 0 ml Output 800 ml Net -800 ml Physical Exam: Gen: WDWN woman lying in bed in NAD HEENT: NCAT, EOMI CV: Regular rate and rhythm, no murmurs/rubs/gallops Pulm: Normal respiratory effort, speaking normally, no audible respiratory sounds, clear to auscultation bilaterally, normal expiratory phase, no rales/rhonchi/wheezes Abd: +BS, soft, non-tender/distended, no HSM Ext: No pedal edema, 2+ peripheral pulses Skin: Warm, dry, no rashes Neuro: Awake, alert, answers questions appropriately Labs: CBC: Recent Labs 09/16/22 0308 09/15/22 0300 09/14/22 0333 WBC 6.7 5.9 5.5 HGB 10.7* 10.2* 10.1* PLATELET 242 252 246 Chemistry: Recent Labs 09/19/22 0439 09/18/22 0453 09/16/22 0308 NA 134* 136 140 K 4.6 4.5 4.0 CL 98 100 103 CO2 27 27 29 BUN 21* 18 15 CREATININE 0.52* 0.53* 0.47* GLUCOSE 194 197 161 Recent Labs 09/19/22 0439 09/18/22 0453 09/16/22 0308 CALCIUM 9.3 9.5 9.4 MAGNESIUM 0.82 0.79 0.80 PHOS 3.3 3.2 3.0 LFT's: Recent Labs 08/20/22 1400 08/15/22 0950 08/15/22 0305 BILITOT <0.2* <0.2* 0.2 BILIDIR 0.1 0.1 0.1 ALBUMIN 2.5* 2.4* 2.4* ALKPHOS 213* 102 99 ALT 20 12 13 AST 39* 21 25 Microbiology: None new Pertinent Radiology/Diagnostic Studies: CT Chest wo Contrast (08/27/2022) Stable findings of multifocal pneumonia. No interval abnormality. CT Chest w Contrast (08/21/2022) 1. Multifocal lower lobe predominant consolidative opacities with additional upper lobe opacities consistent with multifocal pneumonia. Compared to the prior CT of 08/12/2022 the number and size of theopacities has decreased. Recommend follow-up imaging in 3-6 months to document complete resolution.2. New small, sub-1 cm early cavitation of multiple opacities predominantly within the posterior left upper lobe and left lower lobe. 3. New curvilinear splenic lesions could represent infarct versuslate arterial phase splenic arterial opacification. XR Abdomen 1 view (09/10/2022) Dobbhoff with tip at the level of the pyloric region. XR Abdomen 1 view (09/04/2022) 1. On the chest radiograph at 2136 hours the enteric tube projects over the mid esophagus. On the abdominal radiograph at 2139 hours the enteric tube now projects below the diaphragm with tip partially visualized projecting over the left mid abdomen. 2. Lower lobe predominant patchy and reticular airspace opacities consistent with sequela of multifocal pneumonia. The appearance is improved compared to prior radiograph. XR Fluoro Barium Swallow (09/04/2022) 1. Penetration of the airway and aspiration with thin liquids, especially with rapid sips of thin barium. 2. Flash penetration of nectar thick liquids from a straw. 3. Reflux of residual barium within the esophagus on multiple swallows. CT Angiogram Coronary Arteries (08/27/2022) Coronary calcium score of 0, consistent with no detectable calcified atherosclerotic plaque burden.No evidence of stenosing soft plaque on the coronary CT arteriogram. CAD RADS 0 Ongoing bilateral pulmonary infectious/inflammatory changes with persistent consolidative opacity especially in the left lower lobe. This could represent a multifocal pneumonia. Recommend follow-up CT in 3 months to assess for resolution. XR Pelvis (08/22/2022) No radiographic evidence of infection status post left hip ORIF. IR G-Tube Placement (09/11/2022) IR PROCEDURE NOTE ?? Procedure: Gastrostomy tube placement. ?? Indication for Procedure:Per Ishan Zarate??is a 62 y.o.??female??with history of left femoral neck fracture, bipolar, alcohol use disorder, chronic pancreatitis, GERD complicated by esophagitis and Farrell's esophagus admitted with mixed shock with concern for stress cardiomyopathy with dysphagia noted postintubation failing modified barium swallow tests. ??Patient referred for percutaneous gastrostomy catheter placement with IR after failed endoscopic attempt due to esophageal stricture. ?? Procedure events and findings:??Patient was positioned supine on the procedure table under anesthesia. Prophylactic antibiotic Ancef 2g IV was administered. ??The epigastrium was prepared in sterile fashion after U/S to determine the left lateral and caudal??extent of the liver. ??Maximum sterile barrier technique was used throughout. ??A 4 Bulgarian glide catheter??was placed??as a??nasoenteric tube??under fluoroscopy with the aid of a Glidewire. ??Catheter was??used for insufflation of the stomach. ?? The skinover the stomach was infiltrated with 1% lidocaine for local anesthesia. ??An 18 ga needle was advanced under fluoroscopic guidance into the stomach with return of air and contrast injection showing gastric folds. ??A T anchor was deployed. ??Two additional T anchors were placed in the same manner.??In the triangle formed by the T anchors, an 18ga needle was directed into the gastric lumen, confirmed with aspiration and contrast injection. ? Over an 0.035?guidewire, the tract was dilated using an 8 mm angioplasty balloon. A 16 Fr balloon retained gastrostomy tube was then placed. ??The retention balloon of the gastrostomy tube was filled with 5 cc of sterile water and contrast injec tion via the gastrostomy tube??confirmed location within the gastric lumen. ?? Medications: 1% Lidocaine 20ccs subcutaneous, and as per Anesthesia. Antibiotic Prophylaxis: Ancef 2 g IV. ?? Est Blood Loss: <5cc. ?? Complications: No immediate. ?? Impression: ?? 1. Placement of 16 Fr balloon retained nonlow- profile gastrostomy tube, ready for use. ?? 2. Gastric retention anchors to be released in 7 to 10 days. ?? Resident/Fellow: None. ?? Attending: Dr. Hailey Meredith performed this procedure. XR Hip 2-3 Views Left (09/15/2022) 1. Healed left femoral neck fracture with short femoral neck 2. Maintained post reduction alignmentand no hardware complications. XR Hip 2-3 Views Left (08/22/2022) No radiographic evidence of infection. XR Chest One View (09/05/2022) 1. Reposition enteric tube now extending below the diaphragm and included [id number]. 2. Similarappearance of elevated right hemidiaphragm and linear/patchy bibasilar opacities which may represent atelectasis or possibly aspiration. XR Chest One View (09/04/2022) 1. On the chest radiograph at 2136 hours the enteric tube projects over the mid esophagus. On the abdominal radiograph at 2139 hours the enteric tube now projects below the diaphragm with tip partially visualized projecting over the left mid abdomen. 2. Lower lobe predominant patchy and reticular airspace opacities consistent with sequela of multifocal pneumonia. The appearance is improved compared to prior radiograph. CT Hip w Contrast Left (08/21/2022) 1. Uncomplicated left femoral neck ORIF with unchanged postoperative alignment. 2. Moderate skin thickening and subcutaneous stranding about the lateral left hip with lateral left thigh intramuscularedema and fascial thickening. These findings are nonspecific and may be seen in the routine postoperative setting. Underlying soft tissue infection with infectious or inflammatory myositis may also have this appearance. Correlation with physical examination, clinical symptoms, and laboratory findings is recommended. 3. 2.3 x 1.6 x 1.8 cm focus of more coalescent fluid attenuation centered in the subcutaneous fat of the posterolateral thigh roughly at the level of the proximal femoral fixation screw heads. There is no rim-enhancing to suggest a mature, organized abscess at this time. However, this finding could represent phlegmon in appropriate clinical context, or it could represent a postsurgical collection, the contents of which may be sterile or infected. 4. There is a rectal tube in place. However, there remains a large stool ball in the rectum with free fluid versus coalescent edema on both the anterior and posterior margins of the distended rectum. In appropriate clinical context, these findings could represent proctocolitis or stercoral colitis. Assessment/Plan: 62 y.o. female w/ PMH of L femoral neck fracture,??bipolar disorder, resolving medication-induced Parkinsonism, insulin-dependent diabetes mellitus,??hx of alcohol use disorder (reported to be in remission for 1.5 years) c/b chronic pancreatitis, iron deficiency anemia,??GERD??c/b??esophagitis &??Farrell's esophagus, who was admitted to [facility] on 08/14/2022 (now on Hospital Day #23)??for mixed shock and stress cardiomyopathy who transferred to Hospital Medicine due to persistent dysphagia. ?? Patient remains clinically stable. Patient reports that she would like to go home as soon as possible and not go to rehab. reports being anxious that she is not receiving the amount of physical therapy that she needs while inpatient and feels that they would be able to provide 24/7 care forpatient with his son and patient's sister present next week. Will try to see how patient's functionimproves over the next few days. ?? # Medication-induced Parkinsonism # Dysphagia # Esophageal stricture?? # GERD c/b Farrell's esophagus & esophagitis - f/u with GI outpatient for severe stricture - G tube in place as of 09/11 - Continue tube feeds via G tube - Will need retention anchors out in 7-10 days postplacement, ordered by IR, scheduled for 09/25 at 9 AM ?? # Acute hypoxic respiratory failure, resolved # Bilateral airspace opacities/multifocal pneumonia, resolved -??Respiratory support with LFNC PRN - Antibiotics: Status post zosyn for pneumonia - Fungitell and Fungal Cx positive, no change in management per ID - CT Chest showed persistent pneumonia; ID followed, patient completed course of antibioitics ?? # Distributive Shock, resolved # NSTEMI Type I vs Type II, resolved # HFrEF (EF 25%) #Stress Cardiomyopathy - Will not perform LHC given results of CTA coronary arteries - ASA 81mg - Entresto 24-26 1 tab BID -??Continue metoprolol tartrate 25 mg twice daily -??Continue spironolactone 12.5 mg daily - Empagliflozin 10mg as part of GDT - She will need a repeat TTE after 3 months (~11/18) - Mg >1, K >4 ?? # Constipation- resolved # Rectal wall edema 2/2 stool ball - Has Miralax, senna, dulcolax PRN ordered - Continue home pantoprazole 40 BID ?? # Insulin-dependent diabetes -??Diabetes Management consulted, appreciate recs ?? # Mixed JERRICA and ACD - Oral iron supplementation started 08/21 ?>??s/p 1 dose of Venofer - Ferritin, Iron, TIBC resulted; mixed picture - Transfuse for Hb <8 - S/p 1u pRBC 08/22 ?? # Septic shock # Bilateral airspace opacities/multifocal pneumonia # L Hip Fluid Collection # Subcentimeter left posterior upper lobe cavitary lesions - Infectious work-up initially did not yield any clear causative organisms - S/p BAL 08/21 without any growth to date. - IR, orthopedic surgery consulted for evaluation of L hip fluid collection. No intervention/drainable target. - Stopped zosyn as per ID (08/14- 08/23) - Fungal testing positive no change in management at this time per ID ?? #Severe Vitamin D Deficiency #Fragility Fracture - ergocalciferol 50,000U weekly x8 weeks (to end 10/13) - calcium via tube feed - Endocrinology consult ?>??will follow up when d/c from hospital - DXA after discharge - future anabolic agent after recovery from vitamin D deficiency ?? #Bilateral lower extremity neuropathic pain -Continue gabapentin #Housekeeping: - DVT PPx: Enoxaparin - GI PPx: PPI - Diet: Sips and Chips (Hold Meds), tube feeds - IV/Tubes/Drains: PIV - Code status: Attempt Cardiopulmonary Resuscitation - Inpatient - Dispo: pending course - Contact: Lee Mercado last updated at bedside on 09/19/2022 IPI Certification I certify that I am a [facility] credentialed attending provider with admitting privileges and that the patient meets or has met medical necessity to require an inpatient IPI level of care meeting a minimumof two midnights or is on the [facility] inpatient only procedure list (status C) due to: the patient has met Inpatient IPI criteria and is awaiting rehabilitation or [facility] facility placement withactive referrals in process Team Pager ( Coverage 30/11): #[phone] PCP: VAUGHN Whyte MD 09/19/22 * Shirley Thibodeaux RN - 09/19/2022 4:47 AM EDT OUTCOME EVALUATION NOTE: OUTCOME SUMMARY: Pt is A/OX4, VSS on RA. Pt denies SOB,NVD, chest pain. 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 Pt C/O of nausea, PRN Zofran admin Assessment as documented (see flow sheet). BG monitored and insulin coverage given per JUL. Pt is resting between care. Will continue to monitor and notify MD of any changes. PLAN MOVING FORWARD Tube feeding BG monitoring D/C planning Daily weight INDIVIDUALIZED FALL PREVENTION INTERVENTIONS: Patient-specific fall risk factors per assessment: [current deficits]: Generalized weakness, IV sites, hospital environment Assistance [level of assistance required for transfers and ambulation]: 2 FWW Supervision [direct monitoring required during toileting and ADLs]: Hands on/Eyes on Surveillance [continuous indirect monitoring]: Masimo, room near nursing station, call marshall within reach, purposeful rounding. Patient-specific fall prevention interventions for sensory deficits provided, if applicable: N/A CARE PLAN GOAL OUTCOME EVALUATION: * Alan Hunt MD - 09/18/2022 10:52 AM EDT Hospital Medicine Attending Daily Progress Note Admit Date: 08/14/2022 ( Hospital Day 35 days ) Active Hospital Problems Diagnosis ??? Bipolar disorder ??? T2DM (type 2 diabetes mellitus) Resolved Hospital Problems Diagnosis Date Resolved ??? Shock 08/22/2022 Assessment: 62 y.o. female w/ PMH of L femoral neck fracture,??bipolar disorder, resolving medication-induced Parkinsonism, insulin-dependent diabetes mellitus,??hx of alcohol use disorder (reported to be in remission for 1.5 years) c/b chronic pancreatitis, iron deficiency anemia,??GERD??c/b??esophagitis &??Farrell's esophagus, who was admitted to [facility] on 08/14/2022 (now on Hospital Day #23) for mixed shock and stress cardiomyopathy who transferred to Hospital Medicine due to persistent dysphagia. Patient remains clinically stable. Tingling in her left foot is about the same today. I discussed discharge plans at length with the patient and her who was present at the bedside. Rogelio expressed a strong desire to bring his home. However, he ensured that he would not do this if he did not think it was safe to take her home. He notes his son is coming home from college early next week and he has additional family coming up. They will be able to provide 24/7 care and monitoring, assisting with medications, tube feeds, mobility. He states that Ishan helped him recover from a significant surgery as well, and he is confident that he will be able to take care of her. He feels up to the technical and physical demands and feels he has experience managing the things (including tube feeds) that she will need, as he has had to manage this for himself. He notes that it is very important to him to reciprocate the care his provided to him when he was recovering from his surgery, and it is very meaningful for him to be able to take care of his , whom he loves very much. He does not want her to languish in the hospital and feels she will make a better recovery at home. I explained that I am hopeful she will continue to make progress with PT/OT and that we can establish a plan for her safe discharge home. However, I emphasized that if PT/OT does not feel she is safe for discharge home, and she/he still wants to discharge home despite this recommendation,that it would be an AMA discharge, but I emphasized that we would still maximize home services and look to minimize any risks as we can. Ishan and Rogelio voiced understanding and agreement with this. Plan: # Medication-induced Parkinsonism # Dysphagia # Esophageal stricture # GERD c/b Farrell's esophagus & esophagitis - f/u with GI outpatient for severe stricture - G tube in place as of 09/11 - Continue tube feeds via G tube - Will need retention anchors out in 7-10 days postplacement, ordered by IR, scheduled for 09/25 at 9 AM ?? # Acute hypoxic respiratory failure, resolved # Bilateral airspace opacities/multifocal pneumonia, resolved -??Respiratory support with LFNC PRN - Antibiotics: Status post zosyn for pneumonia - Fungitell and Fungal Cx positive, no change in management per ID - CT Chest showed persistent pneumonia; ID followed, patient completed course of antibioitics ?? # Distributive Shock, resolved # NSTEMI Type I vs Type II, resolved # HFrEF (EF 25%) #Stress Cardiomyopathy - Will not perform LHC given results of CTA coronary arteries - ASA 81mg - Entresto 24-26 1 tab BID - Continue metoprolol tartrate 25 mg twice daily - Continue spironolactone 12.5 mg daily - Empagliflozin 10mg as part of GDT - She will need a repeat TTE after 3 months (~11/18) - Mg >1, K >4 ?? # Constipation- resolved # Rectal wall edema 2/2 stool ball - Has Miralax, senna, dulcolax PRN ordered - Continue home pantoprazole 40 BID ?? # Insulin-dependent diabetes -??Diabetes Management consulted, appreciate recs ?? # Mixed JERRICA and ACD - Oral iron supplementation started 08/21 > s/p 1 dose of Venofer - Ferritin, Iron, TIBC resulted; mixed picture - Transfuse for Hb <8 - S/p 1u pRBC 08/22 ?? # Septic shock # Bilateral airspace opacities/multifocal pneumonia # L Hip Fluid Collection # Subcentimeter left posterior upper lobe cavitary lesions - Infectious work-up initially did not yield any clear causative organisms - S/p BAL 08/21 without any growth to date. - IR, orthopedic surgery consulted for evaluation of L hip fluid collection. No intervention/drainable target. - Stopped zosyn as per ID (08/14- 08/23) - Fungal testing positive no change in management at this time per ID ?? #Severe Vitamin D Deficiency #Fragility Fracture - ergocalciferol 50,000U weekly x8 weeks (to end 10/13) - calcium via tube feed - Endocrinology consult > will follow up when d/c from hospital - DXA after discharge - future anabolic agent after recovery from vitamin D deficiency ?? #Bilateral lower extremity neuropathic pain -Continue gabapentin #Routine: -DVT Prophylaxis: Enoxaparin -Diet: Sips and chips for recreation only. No medications by mouth. All medications through the G-tube -Bowel meds ordered -Lines/Drain/Mcrae: PIV, G-tube -Code Status: Full -Family updates -been at bedside 09/18 answer, went to Alan Hunt MD Attending, Hospital Medicine Service Pager #[phone] 09/18/2022 24 Hour Events: None Subjective: Doing okay. Foot tingling is about the same today.. No chest pain or dyspnea. No feversor chills. Physical Exam Vitals Range last 24 hrs Temperature Temp: [35.9 ??C (96.6 ??F)-36.8 ??C (98.2 ??F)] Heart Rate Heart Rate: [82] Blood Pressure BP: (99-143)/(54-75) Respiratory Rate Resp: [16-18] SpO2 SpO2: [95 %-97 %] Intake/Output Summary (Last 24 hours) at 09/18/2022 1052 Last data filed at 09/18/2022 0400 Gross per 24 hour Intake 929 ml Output 225 ml Net 704 ml Patient Vitals for the past 168 hrs: Weight 09/18/22 0543 66.7 kg (147 lb 0.8 oz) 09/17/22 0540 64.4 kg (142 lb) 09/16/22 1557 67.6 kg (149 lb) 09/16/22 0500 64.8 kg (142 lb 14.4 oz) 09/13/22 0638 67.2 kg (148 lb 1.6 oz) Weight: Last Weight: 66.7 kg (147 lb 0.8 oz) Admit Weight: 69 kg Body mass index is 28.72 kg/m??. Gen: well-appearing, no acute distress, interactive HEENT: normocephalic, anicteric, nares patent Neck: supple CV: JVP not elevated, regular rate and rhythm with normal s1/2, no murmurs, rubs, or gallops; radial and dorsalis pedis pulses are 2+ bilaterally Pulm: normal work of breathing, lungs are clear to auscultation bilaterally without focal wheezes, rales, or rhonchi Abd: soft, non-distended, non-tender to palpation with normoactive bowel sounds MSK: No midline T or L-spine tenderness to palpation. Tenderness over the left sciatic notch reproducing patient's complaint of pain in her foot Ext: no cyanosis or clubbing, no lower extremity edema bilaterally Skin: warm, well-perfused without rashes Neuro: Slightly masked facies, alert and oriented to person; moving all extremities grossly with symmetric facies, fluent language Psych: Appropriate affect, logical thinking Studies reviewed in eDH. Remarkable for the following: Labs: Recent Labs 09/16/22 0308 09/15/22 0300 09/14/22 0333 WBC 6.7 5.9 5.5 HGB 10.7* 10.2* 10.1* PLATELET 242 252 246 Recent Labs 09/18/22 0453 09/16/22 0308 09/15/22 0300 NA 136 140 140 K 4.5 4.0 4.0 CL 100 103 102 CO2 27 29 27 BUN 18 15 11 CREATININE 0.53* 0.47* 0.44* Recent Labs 09/18/22 0453 09/16/22 0308 09/15/22 0300 CALCIUM 9.5 9.4 9.2 MAGNESIUM 0.79 0.80 0.77 PHOS 3.2 3.0 2.6 No results for input(s): AST, ALT, ALKPHOS, BILITOT, BILIDIR in the last 168 hours. No results for input(s): TROPONINT, CK in the last 168 hours. No results for input(s): PHART, BBJ4JRA, PO2ART, PSM3URU in the last 168 hours. Micro: No results found for: URINECULTURE Lab Results Component Value Date/Time GRAMSTAIN 08/21/2022 1650 Few Neutrophils seen No squamous epithelial cells seen No microorganisms seen. GRAMSTAIN 08/21/2022 1645 Moderate Neutrophils seen No squamous epithelial cells seen No microorganisms seen. GRAMSTAIN 08/19/2022 1451 Many Neutrophils seen Few squamous epithelial cells seen No microorganisms seen. LOWERRESPCX 08/21/2022 1650 Rare mixed bacterial morphotypes suggestive of normal upper respiratory wiley Lab Results Component Value Date/Time BLOODCX No growth at 5 days. 08/19/2022 1720 BLOODCX No growth at 5 days. 08/19/2022 1330 ECG: none recent Imaging: none recent Inpatient Medications: Scheduled ??? protein powder 2 Scoop Per G Tube Daily ??? pantoprazole DR 40 mg Per G Tube BID ??? spironolactone 12.5 mg Per G Tube Daily ??? metoproloL tartrate 25 mg Per G Tube 2 times per day ??? gabapentin 100 mg Per G Tube TID ??? acetaminophen 650 mg Per G Tube Q6H ??? atorvastatin 80 mg Per G Tube QPM ??? buPROPion 100 mg Per G Tube Daily ??? ergocalciferoL (vitamin D2) 50,000 Units Per G Tube Weekly ??? ferrous sulfate 300 mg Per G Tube Every Other Day ??? folic acid 1,000 mcg Per G Tube Daily ??? melatonin 6 mg Per G Tube Nightly ??? QUEtiapine 100 mg Per G Tube Nightly ??? sacubitriL-valsartan 1 tablet Per G Tube BID ??? valproic acid 300 mg Per G Tube Q6H ??? thiamine 100 mg Per G Tube Daily ??? empagliflozin 10 mg Oral Daily ??? insulin lispro 1-10 Units Subcutaneous Q4H LAZARUS ??? lidocaine 3 patch Transdermal Q24H ??? enoxaparin 40 mg Subcutaneous Daily ??? chlorhexidine 15 mL Oral BID ??? sodium chloride 0.9 % (flush) 5 mL Intravenous BID Continuous infusions: ??? tube feeding diet 1,008 mL (09/18/22 0600) ??? tube feeding diet Stopped (09/17/222218) PRN: ondansetron, polyethylene glycoL, prochlorperazine, ondansetron, diclofenac, senna, bisacodyL,sodium chloride 0.9 % (flush), lidocaine, glucose 40% oral geL OR dextrose 10% OR glucagon IPI Certification I certify that I am a D-H credentialed attending provider with admitting privileges and that the patient meets or has met medical necessity to require an inpatient IPI level of care meeting a minimumof two midnights or is on the [facility] inpatient only procedure list (status C) due to: the patient has met Inpatient IPI criteria and is awaiting rehabilitation or mcc facility placement withactive referrals in process Alan Hunt MD * Alicia Glez OTA - 09/18/2022 10:45 AM EDT Occupational Therapy Treatment Note Treatment Number OT: 7 Patient Dx: Ishan Irving??is a 62 y.o.??female??admitted on 08/14/2022??with a medical history notable for??recent L femoral neck fracture,??bipolar disorder, resolving medication-induced Parkinsonism, insulin- dependent diabetes mellitus,??hx of alcohol use disorder (reported to be in remission for 1.5 years) c/b chronic pancreatitis, iron deficiency anemia,??GERD??c/b??esophagitis &??Farrell's esophagus??presenting in transfer from [facility], suspected to be in cardiogenic shock and foundto be in mixed shock with concern for stress cardiomyopathy.??She is s/p ORIF left femoral neck frac ture. ?? Precautions/Special Considerations: aspiration, skin breakdown, falls, LLE WBAT, Dobhoff tube, Mcrae Interval History: 09/18 SATISH S: yes I can. pt referring to mobilizing to BR O: Patient seen for skilled OT treatment, and demonstrated the following: Spouse present during session Pt and spouse discussion on goals and pt's need to be more independent to progress home Education on need for tube feedings, toileting, personal care and social interactions vs being in bed Pt and spouse education on decreasing pure wick during the day to increase pt's mobility and strength, pt and spouse acknowledging pt's goals Self care & functional mobility: ?? Diet:??NPO, May offer individual ice chips for pleasure / practice as per MD ?? Bathing: seated at EOB and in recliner pt requires VC and set assist with UB with wash wipes. ?? Pt requiring VC to wash legs, Max assist washing back ?? Dressing: Pt was able to doff gown today with no cues ?? Pt was able to marck gown with CGA ?? Grooming: oral care, standing at sink initially with FWW and CGA, then requiring an seated rest to complete task ?? Seated in chair Pt requiring cues to brush her hair therapist assisting with de tangle and styling up in ponytail ?? Pt was able to perform bed mobility with no assist to transition to EOB and place her feet on the floor ?? Pt requiring Mod A for sit to stand from bed ?? Pt with stool incontinence upon standing from bed ?? Pt mobilized from bed to toilet with CGA/ close supervision, pt unsteady with FWW swaying ?? Max A with posterior hygiene, once in BR pt was able to void and perform hygiene and clothing management ?? Pt CGA to descend on/off toilet with slight LOB reaching for grab bar ?? Pt transferred to sink for ADL's with CGA dependent for line and IV pole management ?? Pt returned to recliner, pt was able to weight shift hips however due to short stature required Max A x2 to boost back in chair ?? Pt remained in recliner,call marshall, chair alarm and needs met ?? Cognition: ?? Behavior / Mood: alert, cooperative and flat affect, anxious prior and during transfer, tearful,admits to feeling discouraged by upcoming PEG placement ?? Alert and oriented to: person, place, time and situation ?? Follows commands: 1 step and 100% of the time, does not attend to cues when anxious ?? Attention: WFL ?? Safety awareness: mild impairment ?? Vision: Glasses have been brought in by spouse; wears corrective lenses at all times ?? Endurance: Poor. Fatigues quickly ?? Vitals: Stable on RA during seated task Pain: Pt did not c/o pain this session Education: Pt/family/caregiver education ongoing regarding: Role of occupational therapy/rehabilitation, Transfers, Assistive device/technique, ADL, Exercise, Breathing exercises, Positioning, Safety, Precautions/Protocol, Functional Mobility, Activity pacing/Energy conservation and Balance. Staff Communication: Patient status, treatment, and mobility recommendations discussed with nursing/other staff. Please assist pt to BR/commode for toileting during the day to increase functional mobility, strength and activity tolerance. ASSESSMENT: Pt seen for continuation of therapy POC. Pt remains quiet and reserved with anxiety. Pteducation and review of her goals and D/C planning discussion on patient role. Pt and spouse verbalizing understanding. Pt and spouse are deferring rehabilitation facilities at this time. Pt and spouse educated on the benefits of d/cing the pure wick during the day to progress functional mobility. Pt demonstrating progress with mobility today mobilizing to/from BR, and attempting to perform some ADL's at the sink. How ever pt with slight LOB and unsteadiness. Pt became anxious standing at sink requiring a seated rest and the with emesis and dry heaves, pt did have a small amount of clear mucus. Therapy continues to recommended discharge to acute rehab to improve functional mobility and safety. Pt will benefit from ongoing therapeutic interventions to achieve therapy goals. ?? Equipment needs at discharge: to be determined Anticipated Discharge Disposition: acute rehabilitation facility Daily schedule / Staff Recommendations: ? ? Encourage use of coping & calming strategies ??? Give choices when possible to support feelings of autonomy ? ? Frequent orientation verbally & visually with calendars/clocks/whiteboard ? ? Keep glasses, hearing aides, etc within reach & offer to pt as appropriate ??? Facilitate a normal sleep-wake cycle ??? Provide brief, clear instruction and direction from one source at a time ??? Provide calming music, favorite TV programs, magazines or newspapers ??? Utilize upright chair position using bed features or transfer to recliner chair as appropriate ??? Encourage participation in ADL's by providing set up A on tray table and physical assist only as needed ??? Please assist pt to commode for toileting during the day to increase functional mobility, strength and activity tolerance. ??? Encourage OOB daily Occupational Therapy Goals: to be reached by 09/23/22 -Patient will complete toileting tasks (hygiene, clothing management, transfers)??with Mod A and??with AE, as needed -Patient will ambulate household distances??with Mod A and??with AD, as needed -Patient will complete grooming task (comb hair, brush teeth)??with supervision, seated EOB??(in supported sitting) Therapy Frequency (OT): 2-3 times/wk Total Minutes, Occupational Therapy: 48 (x3 [facility] 1045-11:[phone]) Pager: [phone] DANIELA Montes 09/18/2022 Occupational Therapy Rehabilitation Department * Shirley Thibodeaux RN - 09/18/2022 3:01 AM EDT OUTCOME EVALUATION NOTE: OUTCOME SUMMARY: Pt is A/OX4, VSS on RA. Pt denies SOB,NVD, chest pain. 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 Pt C/O of nausea, PRN Zofran admin, Pt stated intervention had positive effect. Assessment as documented (see flow sheet). BG monitored and insulin coverage given per JUL. Pt is resting between care. Will continue to monitor and notify MD of any changes. PLAN MOVING FORWARD Tube feeding BG monitoring D/C planning Daily weight INDIVIDUALIZED FALL PREVENTION INTERVENTIONS: Patient-specific fall risk factors per assessment: [current deficits]: Generalized weakness, IV sites, hospital environment Assistance [level of assistance required for transfers and ambulation]: 2 FWW Supervision [direct monitoring required during toileting and ADLs]: Hands on/Eyes on Surveillance [continuous indirect monitoring]: Masimo, room near nursing station, call marshall within reach, purposeful rounding. Patient-specific fall prevention interventions for sensory deficits provided, if applicable: N/A CARE PLAN GOAL OUTCOME EVALUATION: * Aicha Sharma RN - 09/17/2022 6:45 PM EDT OUTCOME EVALUATION NOTE: OUTCOME SUMMARY: Assumed care at 0700. VSS on RA. A&Ox4. Flat affect. Endorses left foot pain/tingling. MD aware. No med changes at this time. OOB to chair with 2A and a walker. Incontinent of stool x2 today. Voiding adequate amounts of urine via external catheter. Cyclic TF. Small amount of emesis x2 this shift. Clear in color. Call marshall within reach. Safety measures maintained. PLAN MOVING FORWARD: Encourage activity and ambulation PT/OT Discharge planning INDIVIDUALIZED FALL PREVENTION INTERVENTIONS: Patient-specific fall risk factors per assessment: [current deficits]: Weakness, impulsive Assistance [level of assistance required for transfers and ambulation]: 2A with walker Supervision [direct monitoring required during toileting and ADLs]: Hands on Surveillance [continuous indirect monitoring]: Masimo, hourly rounding Patient-specific fall prevention interventions for sensory deficits provided, if applicable: [X] N/A CPG GOAL OUTCOME EVALUATION: * Alan Hunt MD - 09/17/2022 1:58 PM EDT Hospital Medicine Attending Daily Progress Note Admit Date: 08/14/2022 ( Hospital Day 34 days ) Active Hospital Problems Diagnosis ??? Bipolar disorder ??? T2DM (type 2 diabetes mellitus) Resolved Hospital Problems Diagnosis Date Resolved ??? Shock 08/22/2022 Assessment: 62 y.o. female w/ PMH of L femoral neck fracture,??bipolar disorder, resolving medication-induced Parkinsonism, insulin-dependent diabetes mellitus,??hx of alcohol use disorder (reported to be in remission for 1.5 years) c/b chronic pancreatitis, iron deficiency anemia,??GERD??c/b??esophagitis &??Farrell's esophagus, who was admitted to [facility] on 08/14/2022 (now on Hospital Day #23) for mixed shock and stress cardiomyopathy who transferred to Hospital Medicine due to persistent dysphagia. Patient remains clinically stable. Hip pain is better today. Reports persistent left foot numbness/tingling. Tender over the sciatic notch. Recommend conservative management and PT/OT. Patient and family are currently declining recommendation for rehab placement. We will continue to work with PT/OT here and discuss possibility of discharge home, though at this time, this seems to be a concerning/high risk decision and would require AMA discharge. Plan: # Medication-induced Parkinsonism # Dysphagia # Esophageal stricture # GERD c/b Farrell's esophagus & esophagitis - f/u with GI outpatient for severe stricture - G tube in place as of 09/11 - Continue tube feeds via G tube - Will need retention anchors out in 7-10 days, ordered by IR ?? # Acute hypoxic respiratory failure, resolved # Bilateral airspace opacities/multifocal pneumonia, resolved -??Respiratory support with LFNC PRN - Antibiotics: Status post zosyn for pneumonia - Fungitell and Fungal Cx positive, no change in management per ID - CT Chest showed persistent pneumonia; ID followed, patient completed course of antibioitics ?? # Distributive Shock, resolved # NSTEMI Type I vs Type II, resolved # HFrEF (EF 25%) #Stress Cardiomyopathy - Will not perform LHC given results of CTA coronary arteries - ASA 81mg - Entresto 24-26 1 tab BID - Continue metoprolol tartrate 25 mg twice daily - Continue spironolactone 12.5 mg daily - Empagliflozin 10mg as part of GDT - She will need a repeat TTE after 3 months (~11/18) - Mg >1, K >4 ?? # Constipation- resolved # Rectal wall edema 2/2 stool ball - Has Miralax, senna, dulcolax PRN ordered - Continue home pantoprazole 40 BID ?? # Insulin-dependent diabetes -??Diabetes Management consulted, appreciate recs ?? # Mixed JERRICA and ACD - Oral iron supplementation started 08/21 > s/p 1 dose of Venofer - Ferritin, Iron, TIBC resulted; mixed picture - Transfuse for Hb <8 - S/p 1u pRBC 08/22 ?? # Septic shock # Bilateral airspace opacities/multifocal pneumonia # L Hip Fluid Collection # Subcentimeter left posterior upper lobe cavitary lesions - Infectious work-up initially did not yield any clear causative organisms - S/p BAL 08/21 without any growth to date. - IR, orthopedic surgery consulted for evaluation of L hip fluid collection. No intervention/drainable target. - Stopped zosyn as per ID (08/14- 08/23) - Fungal testing positive no change in management at this time per ID ?? #Severe Vitamin D Deficiency #Fragility Fracture - ergocalciferol 50,000U weekly x8 weeks (to end 10/13) - calcium via tube feed - Endocrinology consult > will follow up when d/c from hospital - DXA after discharge - future anabolic agent after recovery from vitamin D deficiency ?? #Bilateral lower extremity neuropathic pain -Continue gabapentin #Routine: -DVT Prophylaxis: Enoxaparin -Diet: Sips and chips for recreation only. No medications by mouth. All medications through the G-tube -Bowel meds ordered -Lines/Drain/Mcrae: PIV, G-tube -Code Status: Full -Family updates - called 09/17 @3:45 as requested - no answer, went to Alan Hunt MD Attending, Hospital Medicine Service Pager #[phone] 09/17/2022 24 Hour Events: None Subjective: Doing okay. Main complaint is of left foot pain, numbness/tingling which has been present since her hip fracture repair. No chest pain or dyspnea. No fevers or chills. Physical Exam Vitals Range last 24 hrs Temperature Temp: [35.9 ??C (96.6 ??F)-36.7 ??C (98.1 ??F)] Heart Rate Heart Rate: [76] Blood Pressure BP: (111-138)/(58-76) Respiratory Rate Resp: [14-18] SpO2 SpO2: [92 %-97 %] Intake/Output Summary (Last 24 hours) at 09/17/2022 1358 Last data filed at 09/17/2022 1200 Gross per 24 hour Intake 0 ml Output 700 ml Net -700 ml Patient Vitals for the past 168 hrs: Weight 09/17/22 0540 64.4 kg (142 lb) 09/16/22 1557 67.6 kg (149 lb) 09/16/22 0500 64.8 kg (142 lb 14.4 oz) 09/13/22 0638 67.2 kg (148 lb 1.6 oz) Weight: Last Weight: 64.4 kg (142 lb) Admit Weight: 69 kg Body mass index is 27.73 kg/m??. Gen: well-appearing, no acute distress, interactive HEENT: normocephalic, anicteric, nares patent Neck: supple CV: JVP not elevated, regular rate and rhythm with normal s1/2, no murmurs, rubs, or gallops; radial and dorsalis pedis pulses are 2+ bilaterally Pulm: normal work of breathing, lungs are clear to auscultation bilaterally without focal wheezes, rales, or rhonchi Abd: soft, non-distended, non-tender to palpation with normoactive bowel sounds MSK: No midline T or L-spine tenderness to palpation. Tenderness over the left sciatic notch reproducing patient's complaint of pain in her foot Ext: no cyanosis or clubbing, no lower extremity edema bilaterally Skin: warm, well-perfused without rashes Neuro: Slightly masked facies, alert and oriented to person; moving all extremities grossly with symmetric facies, fluent language Psych: Appropriate affect, logical thinking Studies reviewed in eDH. Remarkable for the following: Labs: Recent Labs 09/16/2230709/15/220 09/14/22 0333 WBC 6.7 5.9 5.5 HGB 10.7* 10.2* 10.1* PLATELET 242 252 246 Recent Labs 09/16/2230709/15/22 0300 09/14/22 0333 NA 140 140 140 K 4.0 4.0 4.1 CL 103 102 102 CO2 29 27 28 BUN 15 11 10 CREATININE 0.47* 0.44* 0.45* Recent Labs 09/16/2230709/15/22 0300 09/14/22 0333 CALCIUM 9.4 9.2 9.1 MAGNESIUM 0.80 0.77 0.74 PHOS 3.0 2.6 2.9 No results for input(s): AST, ALT, ALKPHOS, BILITOT, BILIDIR in the last 168 hours. No results for input(s): TROPONINT, CK in the last 168 hours. No results for input(s): PHART, XSZ1VGM, PO2ART, WLV3XIE in the last 168 hours. Micro: No results found for: URINECULTURE Lab Results Component Value Date/Time GRAMSTAIN 08/21/2022 1650 Few Neutrophils seen No squamous epithelial cells seen No microorganisms seen. GRAMSTAIN 08/21/2022 1645 Moderate Neutrophils seen No squamous epithelial cells seen No microorganisms seen. GRAMSTAIN 08/19/2022 1451 Many Neutrophils seen Few squamous epithelial cells seen No microorganisms seen. LOWERRESPCX 08/21/2022 1650 Rare mixed bacterial morphotypes suggestive of normal upper respiratory wiley Lab Results Component Value Date/Time BLOODCX No growth at 5 days. 08/19/2022 1720 BLOODCX No growth at 5 days. 08/19/2022 1330 ECG: none recent Imaging: none recent Inpatient Medications: Scheduled ??? pantoprazole DR 40 mg Per G Tube BID ??? spironolactone 12.5 mg Per G Tube Daily ??? metoproloL tartrate 25 mg Per G Tube 2 times per day ??? gabapentin 100 mg Per G Tube TID ??? acetaminophen 650 mg Per G Tube Q6H ??? atorvastatin 80 mg Per G Tube QPM ??? buPROPion 100 mg Per G Tube Daily ??? ergocalciferoL (vitamin D2) 50,000 Units Per G Tube Weekly ??? ferrous sulfate 300 mg Per G Tube Every Other Day ??? folic acid 1,000 mcg Per G Tube Daily ??? melatonin 6 mg Per G Tube Nightly ??? QUEtiapine 100 mg Per G Tube Nightly ??? sacubitriL-valsartan 1 tablet Per G Tube BID ??? valproic acid 300 mg Per G Tube Q6H ??? thiamine 100 mg Per G Tube Daily ??? empagliflozin 10 mg Oral Daily ??? insulin lispro 1-10 Units Subcutaneous Q4H LAZARUS ??? lidocaine 3 patch Transdermal Q24H ??? enoxaparin 40 mg Subcutaneous Daily ??? chlorhexidine 15 mL Oral BID ??? sodium chloride 0.9 % (flush) 5 mL Intravenous BID Continuous infusions: ??? tube feeding diet 1,260 mL (09/17/22 0726) PRN: polyethylene glycoL, prochlorperazine, ondansetron, diclofenac, senna, bisacodyL, sodium chloride 0.9 % (flush), lidocaine, glucose 40% oral geL OR dextrose 10% OR glucagon IPI Certification I certify that I am a D-H credentialed attending provider with admitting privileges and that the patient meets or has met medical necessity to require an inpatient IPI level of care meeting a minimumof two midnights or is on the [facility] inpatient only procedure list (status C) due to: the patient has met Inpatient IPI criteria and is awaiting rehabilitation or mcc facility placement withactive referrals in process Alan Hunt MD * Nancy Ernst, RD - 09/17/2022 12:38 PM EDT Nutrition Progress Note Ishan Orlando Irving??is a 62 y.o.??female??with h/o bipolar, DM, EtOH, esophagitis, who presented to [facility] 3 days ago after being found unresponsive at home.?Patient found to have likely pneumonia+/- aspiration, newly reduced EF. Reason for Assessment: Tube Feeding, Follow-up Nutrition Recommendations: Suggest Cyclic Nutren 1.5 at 72 ml per hour plus 2 scoops of protein powder 14 hrs from [id number] -pended At goal, this will provide: Nutren 1.5 Total Volume Per Day: 1012 mL Calories per Day: 1518 Protein per Day: 69 g Free Water mL per Day: 773 % RDI: 101 % Monitor hydration status on above TFs as they are concentrated. Pt may need additional fluids depending on IVFs, med flushes, p.o. Intake, etc. ?? Po diet per [employer] (recs 09/04 NPO s/p MBS) ?? Continue 50,000 units vitamin D weekly; 1000 mcg folic acid and 100 mg thiamine daily. Recheck vitamin D in November I was able to discuss plan with provider German Hunt MD. Current Nutrition Regimen: Active Orders Diet Sips and Chips (Hold Meds) Frequency: Effective Now Number of Occurrences: Until Specified Order Comments: Sips and chips for comfort. Administer meds via G tube All Active TF Orders: Tubefeeding Orders (From admission, onward) Start Dose/Rate Route Frequency Ordered Stop 09/12/22 1330 tube feeding diet 1,260 mL 90 mL/hr Per G Tube Cyclic-(Tube feed) 09/12/22 1236 Average tube feeding provision over past 3 days: I/o not consistently completed TF volume ?? Tolerance or barriers to meeting needs: tolerating Assessment: Lab Results Component Value Date NA 140 09/16/2022 K 4.0 09/16/2022 CL 103 09/16/2022 CO2 29 09/16/2022 BUN 15 09/16/2022 CREATININE 0.47 (L) 09/16/2022 ESTGFR 108 09/16/2022 MAGNESIUM 0.80 09/16/2022 CALCIUM 9.4 09/16/2022 PHOS 3.0 09/16/2022 AST 39 (H) 08/20/2022 ALT 20 08/20/2022 ALKPHOS 213 (H) 08/20/2022 BILITOT <0.2 (L) 08/20/2022 BILIDIR 0.1 08/20/2022 TRIG 127 08/29/2022 CRP 19.4 (H) 08/21/2022 HA1C 6.2 (H) 08/15/2022 25OHVITD 12 (L) 08/24/2022 IRON 25 (L) 08/21/2022 Lab Results Component Value Date POCGLU 181 09/17/2022 POCGLU 146 09/17/2022 POCGLU 149 09/17/2022 POCGLU 174 09/17/2022 POCGLU 139 09/16/2022 POCGLU 155 09/16/2022 Patient Lines/Drains/Airways Status Active Nutritional LDAs Name Placement date Placement time Site Days Enterostomy Tube 09/11/221651 gastrostomy tube with balloon LUQ (left upper quadrant) feeding 09/11/221651 -- 6 External Catheter 09/13/22 2344 09/13/22 2344 -- 4 Physical Findings Gastrointestinal: feeding tube Oxygen Therapy / Airway Device: None (Room air) Shift Pressure Injury Prevention Occiput: No Injury Thoracic Spine: No Injury Sacral: Redness, Blanchable Ischial - left: No Injury Ischial - right: No Injury Heel - left: No Injury Heel - right: No Injury Elbow - left: No Injury Elbow - right: No Injury Device Sites: O2 sat monitor Other Sites: PEG Last Bowel Movement: 09/16/22 Intake/Output Summary (Last 24 hours) at 09/17/2022 1238 Last data filed at 09/17/2022 1200 Gross per 24 hour Intake 0 ml Output 700 ml Net -700 ml Relevant medications: Jardiance, Lovenox, Vit D2, ferrous sulfate, folic acid, insulin; correction,protonix, spironolactone, thiamine, others noted Anthropometrics: Admit Weight: 69 kg Estimated body mass index is 27.73 kg/m?? as calculated from the following: Height as of 08/19/22: 152.4 cm (5'). Weight as of this encounter: 64.4 kg (142 lb). [place] Body Weight (IBW) (kg): 45.45 Usual Body Weight: 70.3 kg (155 lb) Weight Loss: unintentional Duration of Weight Loss: 1 Month (since admission) Weight Lost: 4.7kg % of Weight Lost: 6.8% Wt Readings from Last 10 Encounters: 09/17/22 64.4 kg (142 lb) 08/19/22 73.1 kg (161 lb 2.5 oz) 07/03/22 69.9 kg (154 lb) 03/31/22 74.4 kg (164 lb) 02/12/22 78.7 kg (173 lb 9.6 oz) 09/23/21 78.5 kg (173 lb) 03/01/20 79.4 kg (175 lb) 11/22/18 80.3 kg (177 lb) 12/13/14 86.5 kg (190 lb 12.8 oz) 03/20/14 94 kg (207 lb 3.7 oz) Patient Vitals for the past 168 hrs: Weight 09/17/22 0540 64.4 kg (142 lb) 09/16/22 1557 67.6 kg (149 lb) 09/16/22 0500 64.8 kg (142 lb 14.4 oz) 09/13/22 0638 67.2 kg (148 lb 1.6 oz) Weight Source: Bed Estimated / Assessed Needs: Kcal / K - 1737.5 Kcal (20 Kcal/Kg - 25 Kcal/Kg) Estimated Protein Needs: 83.4 - 104.25 g (1.2 g/Kg - 1.5 g/Kg) Nutrition intake and intake history / interview: 09/17: Pt w/ clinically significant wt loss since admission, but seems to be relatively stable in the last 2 weeks. Pt does report constant mild nausea while TF is running and while they are off, but patient does not want to have feeds stopped d/t this. Will transition to standard formula w/ pendingdischarge. 09/14: Met with Ishan and at bedside, tolerating TF with no reported concerns. All questionregarding TF/ nutrition answered at this time. Nutrition Focused Physical Exam: Not performed Malnutrition Diagnosis: Not enough data to assess (Andrea, JPEN J Parenteral Enteral Nutr. 2011; 36(3): 273-83) Nutrition to continue to follow up while inpatient Nancy Ernst RD Pager #:[phone] * Shirley Thibodeaux RN - 09/17/2022 3:42 AM EDT OUTCOME EVALUATION NOTE: OUTCOME SUMMARY: Pt is A/OX4, VSS on RA. Pt denies SOB,NVD, chest pain. 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 Assessment as documented (see flow sheet). BG monitored and insulin coverage per JUL orders Pt is resting between care. Will continue to monitor and notify MD of any changes. PLAN MOVING FORWARD Tube feeding BG monitoring D/C planning INDIVIDUALIZED FALL PREVENTION INTERVENTIONS: Patient-specific fall risk factors per assessment: [current deficits]: Generalized weakness, IV sites, hospital environment Assistance [level of assistance required for transfers and ambulation]: 2 FWW Supervision [direct monitoring required during toileting and ADLs]: Hands on/Eyes on Surveillance [continuous indirect monitoring]: Masimo, room near nursing station, call marshall within reach, purposeful rounding. Patient-specific fall prevention interventions for sensory deficits provided, if applicable: N/A CARE PLAN GOAL OUTCOME EVALUATION: * Feroz Portillo, STONE BREAKER - 09/16/2022 2:05 PM EDT Physical Therapy Note Treatment Number PT: 12 Patient profile: Ishan Irving is a 62 y.o. female admitted on 08/14/2022 with a medical history notable for??recent L femoral neck fracture,??bipolar disorder, resolving medication-induced Parkinsonism, insulin-dependent diabetes mellitus,??hx of alcohol use disorder (reported to be in remission for 1.5 years) c/b chronic pancreatitis, iron deficiency anemia,??GERD??c/b??esophagitis &??Farrell's esophagus??presenting in transfer from [facility], suspected to be in cardiogenic shock and found to be in mixed shock with concern for stress cardiomyopathy. She is s/p ORIF left femoral neck fracture ~ 08/08 at OSH. Interval History: Uneventful Social History: single level home w ramp to enter. 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 Pt drives, does all community chores. Does have a RW avail at home which she had been using since ORIF. Fall Hx: Spouse reports that pt slipped in a puddle of water left by the dog which is the cause of her hip fx Precautions/Special Considerations: WBAT L leg, Fall risk Mobility and Positioning Recommendations: ?? Pt able to stand pivot transfer with FWW and 1 assist ?? Encourage short distance ambulation with FWW, 1 assist and chair follow ?? Please encourage up to chair for meal times as able. Subjective: That felt different regarding step up/down Objective: Patient seen for physical therapy and demonstrated the following: Pain: no c/o pain Vital Signs: stable on room air. ?? Pt in recliner chair, agreeable to therapy ?? Stand pivot transfer from recliner to wheelchair, FWW, Mod A ?? Brought up to in-pt gym ?? Stand pivot transfer to and from Nu step, FWW, Mod A, cues for UE push off and one hand on walker, count to three ?? Nu step for 5 minutes, steady pacing, monitor not working ?? Sit<->stand x 3 in the // bars, Min A, cues for anterior weight shifting ?? Step up/down x 3 on 3 inch step, then step up/down x 4 on 5 inch step, cues for sequencing, CGA,no LOB, requesting to sit after 1-2 steps each time ?? Sit<->stand x 4 from w/c to FWW, UE push off and one hand on walker, Min-Mod A, count to three ?? Ambulated 10 ft x 4, FWW, CGA, chair follow, short steps, greater step length on L LE, set conesout at 10 ft intervals, pt made each goal without requesting to sit early ?? Attempted to have pt ambulate one more time, instructed her to go as far as she could, pt ambulated 5 ft then requested to sit ?? Brought back to pt's room ?? Stand pivot transfer from w/c to bed, FWW and Min A ?? Pt left supine in bed with bed alarm on, all needs met, following visit. Education: Progressing ambulation distances, using UE's to assist with standing and working on stairs Assessment: Ishan Irving was seen today for physical therapy treatment session for continuation of POC. Slowly progressing activity tolerance, gait distances limited by anxiety and fear of falling. Moderately good functional strength, occasionally needs cues for technique. Encourage more frequent transfers and room distance gait with nursing and mobility tech to progress independence withhousehold ambulation distances. Pt will benefit from ongoing therapeutic interventions to achieve therapy goals. Discharge Recommendations: Based on the current findings, Anticipated Discharge Disposition (PT): [facility] facility when medically ready for hospital discharge. Consult Recommendations: No other consults recommended at this time. Equipment needs: none Anticipated Equipment Needs at Discharge (PT): to be determined Physical Therapy Goals: To be achieved by 09/24/22: Ongoing ?? 1. Pt. will demonstrate understanding of appropriate exercises and perform them independently or with family. 2. Pt. will perform bed mobility with modified independence. 3. Pt. will perform sit to stand transfers with min A using a front wheeled walker. 4. Pt. Will perform sit to stand transfers with CGA using a front wheeled walker. 5. Pt. will ambulate 10 feet with mod A using a front wheeled walker. Met 6. Pt. Will ambulate 25 with CGA using a front wheeled walker. 7. Pt. will ascend/descend step/stairs sufficient for home using rail and assist of 1 Plan: Therapy Frequency (PT): 2-4 times/wk for skilled PT rx as outlined in initial evaluation. Patient agrees with plan as stated. Time IN / OUT: 13:20- 14:05 Total Minutes, Physical Therapy: 45 Billing Code: TE-F x 3 FEROZ PORTILLO PTA Pager: [phone] Physical Therapy Inpatient Rehabilitation Department * Alan Hunt MD - 09/16/2022 12:41 PM EDT Hospital Medicine Attending Daily Progress Note Admit Date: 08/14/2022 ( Hospital Day 33 days ) Active Hospital Problems Diagnosis ??? Bipolar disorder ??? T2DM (type 2 diabetes mellitus) Resolved Hospital Problems Diagnosis Date Resolved ??? Shock 08/22/2022 Assessment: 62 y.o. female w/ PMH of L femoral neck fracture,??bipolar disorder, resolving medication-induced Parkinsonism, insulin-dependent diabetes mellitus,??hx of alcohol use disorder (reported to be in remission for 1.5 years) c/b chronic pancreatitis, iron deficiency anemia,??GERD??c/b??esophagitis &??Farrell's esophagus, who was admitted to [facility] on 08/14/2022 (now on Hospital Day #23) for mixed shock and stress cardiomyopathy who transferred to Hospital Medicine due to persistent dysphagia. Patient remains clinically stable. Awaiting disposition. Continue to work with PT/OT. Pain control is fair but suboptimal. We will schedule Tylenol and encourage use of diclofenac gel. Details of plan otherwise as below Plan: # Medication-induced Parkinsonism # Dysphagia # Esophageal stricture # GERD c/b Farrell's esophagus & esophagitis - f/u with GI outpatient for severe stricture - G tube in place as of 09/11 - Continue tube feeds via G tube - Will need retention anchors out in 7-10 days, ordered by IR ?? # Acute hypoxic respiratory failure, resolved # Bilateral airspace opacities/multifocal pneumonia, resolved -??Respiratory support with LFNC PRN - Antibiotics: Status post zosyn for pneumonia - Fungitell and Fungal Cx positive, no change in management per ID - CT Chest showed persistent pneumonia; ID followed, patient completed course of antibioitics ?? # Distributive Shock, resolved # NSTEMI Type I vs Type II, resolved # HFrEF (EF 25%) #Stress Cardiomyopathy - Will not perform LHC given results of CTA coronary arteries - ASA 81mg - Entresto 24-26 1 tab BID - Continue metoprolol tartrate 25 mg twice daily - Continue spironolactone 12.5 mg daily - Empagliflozin 10mg as part of GDT - She will need a repeat TTE after 3 months (~11/18) - Mg >1, K >4 ?? # Constipation- resolved # Rectal wall edema 2/2 stool ball - Has Miralax, senna, dulcolax PRN ordered - Continue home pantoprazole 40 BID ?? # Insulin-dependent diabetes -??Diabetes Management consulted, appreciate recs ?? # Mixed JERRICA and ACD - Oral iron supplementation started 08/21 > s/p 1 dose of Venofer - Ferritin, Iron, TIBC resulted; mixed picture - Transfuse for Hb <8 - S/p 1u pRBC 08/22 ?? # Septic shock # Bilateral airspace opacities/multifocal pneumonia # L Hip Fluid Collection # Subcentimeter left posterior upper lobe cavitary lesions - Infectious work-up initially did not yield any clear causative organisms - S/p BAL 08/21 without any growth to date. - IR, orthopedic surgery consulted for evaluation of L hip fluid collection. No intervention/drainable target. - Stopped zosyn as per ID (08/14- 08/23) - Fungal testing positive no change in management at this time per ID ?? #Severe Vitamin D Deficiency #Fragility Fracture - ergocalciferol 50,000U weekly x8 weeks (to end 10/13) - calcium via tube feed - Endocrinology consult > will follow up when d/c from hospital - DXA after discharge - future anabolic agent after recovery from vitamin D deficiency ?? #Bilateral lower extremity neuropathic pain -Continue gabapentin #Routine: -DVT Prophylaxis: Enoxaparin -Diet: Sips and chips for recreation only. No medications by mouth. All medications through the G-tube -Bowel meds ordered -Lines/Drain/Mcrae: PIV, G-tube -Code Status: Full Alan Hunt MD Attending, Hospital Medicine Service Pager #[phone] 09/16/2022 24 Hour Events: None Subjective: Doing okay. Main complaint is of left hip pain which is intermittent and chronic since her fracture. No chest pain or dyspnea. No fevers or chills. Physical Exam Vitals Range last 24 hrs Temperature Temp: [36.2 ??C (97.2 ??F)-36.7 ??C (98.1 ??F)] Heart Rate Heart Rate: -- Blood Pressure BP: (97-141)/(51-75) Respiratory Rate Resp: [16] SpO2 SpO2: [92 %-96 %] Intake/Output Summary (Last 24 hours) at 09/16/2022 1241 Last data filed at 09/16/2022 1130 Gross per 24 hour Intake 180 ml Output 500 ml Net -320 ml Patient Vitals for the past 168 hrs: Weight 09/16/22 0500 64.8 kg (142 lb 14.4 oz) 09/13/22 0638 67.2 kg (148 lb 1.6 oz) Weight: Last Weight: 64.8 kg (142 lb 14.4 oz) Admit Weight: 69 kg Body mass index is 27.91 kg/m??. Gen: well-appearing, no acute distress, interactive HEENT: normocephalic, anicteric, nares patent Neck: supple CV: JVP not elevated, regular rate and rhythm with normal s1/2, no murmurs, rubs, or gallops; radial and dorsalis pedis pulses are 2+ bilaterally Pulm: normal work of breathing, lungs are clear to auscultation bilaterally without focal wheezes, rales, or rhonchi Abd: soft, non-distended, non-tender to palpation with normoactive bowel sounds Ext: no cyanosis or clubbing, no lower extremity edema bilaterally Skin: warm, well-perfused without rashes Neuro: Slightly masked facies, alert and oriented to person; moving all extremities grossly with symmetric facies, fluent language Psych: Appropriate affect, logical thinking Studies reviewed in eDH. Remarkable for the following: Labs: Recent Labs 09/16/2230709/15/2229909/14/22 033 WBC 6.7 5.9 5.5 HGB 10.7* 10.2* 10.1* PLATELET 242 252 246 Recent Labs 09/16/22 03009/15/2229909/14/22 0333 NA 140 140 140 K 4.0 4.0 4.1 CL 103 102 102 CO2 29 27 28 BUN 15 11 10 CREATININE 0.47* 0.44* 0.45* Recent Labs 09/16/22 0308 09/15/22 0300 09/14/22 0333 CALCIUM 9.4 9.2 9.1 MAGNESIUM 0.80 0.77 0.74 PHOS 3.0 2.6 2.9 No results for input(s): AST, ALT, ALKPHOS, BILITOT, BILIDIR in the last 168 hours. No results for input(s): TROPONINT, CK in the last 168 hours. No results for input(s): PHART, UNI8OAW, PO2ART, XKY3HQB in the last 168 hours. Micro: No results found for: URINECULTURE Lab Results Component Value Date/Time GRAMSTAIN 08/21/2022 1650 Few Neutrophils seen No squamous epithelial cells seen No microorganisms seen. GRAMSTAIN 08/21/2022 1645 Moderate Neutrophils seen No squamous epithelial cells seen No microorganisms seen. GRAMSTAIN 08/19/2022 1451 Many Neutrophils seen Few squamous epithelial cells seen No microorganisms seen. LOWERRESPCX 08/21/2022 1650 Rare mixed bacterial morphotypes suggestive of normal upper respiratory wiley Lab Results Component Value Date/Time BLOODCX No growth at 5 days. 08/19/2022 1720 BLOODCX No growth at 5 days. 08/19/2022 1330 ECG: none recent Imaging: none recent Inpatient Medications: Scheduled ??? pantoprazole DR 40 mg Per G Tube BID ??? spironolactone 12.5 mg Per G Tube Daily ??? metoproloL tartrate 25 mg Per G Tube 2 times per day ??? gabapentin 100 mg Per G Tube TID ??? acetaminophen 650 mg Per G Tube Q6H ??? atorvastatin 80 mg Per G Tube QPM ??? buPROPion 100 mg Per G Tube Daily ??? ergocalciferoL (vitamin D2) 50,000 Units Per G Tube Weekly ??? ferrous sulfate 300 mg Per G Tube Every Other Day ??? folic acid 1,000 mcg Per G Tube Daily ??? melatonin 6 mg Per G Tube Nightly ??? QUEtiapine 100 mg Per G Tube Nightly ??? sacubitriL-valsartan 1 tablet Per G Tube BID ??? valproic acid 300 mg Per G Tube Q6H ??? thiamine 100 mg Per G Tube Daily ??? empagliflozin 10 mg Oral Daily ??? insulin lispro 1-10 Units Subcutaneous Q4H LAZARUS ??? lidocaine 3 patch Transdermal Q24H ??? enoxaparin 40 mg Subcutaneous Daily ??? chlorhexidine 15 mL Oral BID ??? sodium chloride 0.9 % (flush) 5 mL Intravenous BID Continuous infusions: ??? tube feeding diet 90 mL/hr at 09/16/22 1130 PRN: polyethylene glycoL, prochlorperazine, ondansetron, diclofenac, senna, bisacodyL, sodium chloride 0.9 % (flush), lidocaine, glucose 40% oral geL OR dextrose 10% OR glucagon IPI Certification I certify that I am a [facility] credentialed attending provider with admitting privileges and that the patient meets or has met medical necessity to require an inpatient IPI level of care meeting a minimumof two midnights or is on the [facility] inpatient only procedure list (status C) due to: the patient has met Inpatient IPI criteria and is awaiting rehabilitation or [facility] facility placement withactive referrals in process Alan Hunt MD * Alicia Glez OTA - 09/16/2022 11:38 AM EDT Occupational Therapy Treatment Note Treatment Number OT: 6 Patient Dx: Ishan Irving??is a 62 y.o.??female??admitted on 08/14/2022??with a medical history notable for??recent L femoral neck fracture,??bipolar disorder, resolving medication-induced Parkinsonism, insulin- dependent diabetes mellitus,??hx of alcohol use disorder (reported to be in remission for 1.5 years) c/b chronic pancreatitis, iron deficiency anemia,??GERD??c/b??esophagitis &??Farrell's esophagus??presenting in transfer from [facility], suspected to be in cardiogenic shock and foundto be in mixed shock with concern for stress cardiomyopathy.??She is s/p ORIF left femoral neck frac ture. ?? Precautions/Special Considerations: aspiration, skin breakdown, falls, LLE WBAT, Dobhoff tube, Mcrae Interval History: Yesterday: ??? Doing well with G-tube. Continuing tube feeds. Overnight: No acute events overnight.Today AM: The patient reports doing well and denies any acute medical complaints. S: I am walking with PT at 1 pm O: Patient seen for skilled OT treatment, and demonstrated the following: Pt up in recliner upon arrival assisted by MT Self care & functional mobility: ?? Diet:??NPO, May offer individual ice chips for pleasure / practice as per MD ?? Bathing: Min A requires extra time, encouragement, pt completed bathing seated in chair, therapist assisting with wash cloth, towel, and wash wipes. Pt able to bath UB and LB with Max assist washing back and VC for gavin area ?? Dressing: CGA doffing and donning gown requires A with un tieing and tieing gown with VC ?? Grooming: in supported sitting set up assist required, brushing hair independent ?? Pt remained in recliner,call marshall, chair alarm and needs met ?? Pt and spouse deferring functional mobility due to having PT at 1pm today ?? Cognition: ?? Behavior / Mood: alert, cooperative and flat affect, anxious prior and during transfer, tearful,admits to feeling discouraged by upcoming PEG placement ?? Alert and oriented to: person, place, time and situation ?? Follows commands: 1 step and 100% of the time, does not attend to cues when anxious ?? Attention: WFL ?? Safety awareness: mild impairment ?? Vision: Glasses have been brought in by spouse; wears corrective lenses at all times ?? Endurance: Poor. Fatigues quickly ?? Vitals: Stable on RA during seated task Pain: 8/10 Education: Pt/family/caregiver education ongoing regarding: Role of occupational therapy/rehabilitation, Transfers, Assistive device/technique, ADL, Exercise, Breathing exercises, Positioning, Safety, Precautions/Protocol, Functional Mobility, Activity pacing/Energy conservation and Balance. Staff Communication: Patient status, treatment, and mobility recommendations discussed with nursing/other staff. Please assist pt to commode for toileting during the day to increase functional mobility, strength and activity tolerance. ASSESSMENT: Pt seen for continuation of therapy POC. Pt presents less anxious today, however differing functional mobility. Pt with flat affect and low voice, pt is able to follow commands. Pt will benefit from toileting commode/BR use during the day vs pur wick to increase functional mobility, strength and activity tolerance. Therapy continues to recommended discharge to SNF to improve functional mobility and safety. Pt will benefit from ongoing therapeutic interventions to achieve therapy goals. ?? Equipment needs at discharge: to be determined Anticipated Discharge Disposition: acute rehabilitation facility Daily schedule / Staff Recommendations: ? ? Encourage use of coping & calming strategies ??? Give choices when possible to support feelings of autonomy ? ? Frequent orientation verbally & visually with calendars/clocks/whiteboard ? ? Keep glasses, hearing aides, etc within reach & offer to pt as appropriate ??? Facilitate a normal sleep-wake cycle ??? Provide brief, clear instruction and direction from one source at a time ??? Provide calming music, favorite TV programs, magazines or newspapers ??? Utilize upright chair position using bed features or transfer to recliner chair as appropriate ??? Encourage participation in ADL's by providing set up A on tray table and physical assist only as needed ??? Please assist pt to commode for toileting during the day to increase functional mobility, strength and activity tolerance. ??? Encourage OOB daily Occupational Therapy Goals: to be reached by 09/23/22 -Patient will complete toileting tasks (hygiene, clothing management, transfers)??with Mod A and??with AE, as needed -Patient will ambulate household distances??with Mod A and??with AD, as needed -Patient will complete grooming task (comb hair, brush teeth)??with supervision, seated EOB??(in supported sitting) Therapy Frequency (OT): 2-3 times/wk Total Minutes, Occupational Therapy: 24 (x2 [facility] [id number]) Pager: [phone] DANIELA Montes 09/16/2022 Occupational Therapy Rehabilitation Department * Jane Howe - 09/16/2022 9:54 AM EDTSumizzy: Clinical Notes Submitted to [facility] Medicaid Program for Review 09/16/22 0954 Contract Sheltered Workshop Supervisor Care Medicaid Date Clinical Application Filed 09/16/22 State Application Filed in [place] Farideh Kirby RN [facility] from [place] [facility] Medicaid Program requested clinical notes for Ishan gabriel level of need. Hospitalist Program Director sent Ishan's most recent MDs, PT/OT/GAS STATION SUPERVISOR, RNCM and nursing notes. Along with Ishan's H&P and therapy evaluation notes. Will follow up when clinical determination is complete. * Simba Elizondo RN - 09/16/2022 9:35 AM EDT Patient Guidelines for Self-Care after PICC (Peripherally Inserted Central Catheter) Removal Your PICC was removed on 09-16 at 0930 AM. A Petroleum ointment was applied to the insertion site (where the PICC went into your skin). The nurse applied gauze and a transparent (see-through) dressing over the insertion site. To help your PICC insertion site heal: *Avoid heavy lifting (for example, no more than a gallon of milk) or vigorous activities for 24 hours * Keep the dressing over the insertion site dry for 24 hours * You can remove the dressing after 24 hours. Call your doctor after your PICC has been removed if you experience any of the following: * Fever (temperature over 100.1F) * Chills * Drainage from the insertion site ( including bleeding). *Redness, warmth, pain, swelling, or a pink/red streak going up your arm *A knot at the insertion site or anywhere in the arm *If bleeding should occur, hold firm pressure for 3-5 minutes. Do not remove the dressing that the nurse put on when the PICC was removed. If needed, apply another dressing over the first dressing. If bleeding does not stop, call or seek medical attention. * Elsie Erickson APRN - 09/15/2022 3:40 PM EDT Follow Up Diabetes Consult Patient Interview Blood glucose values and insulin use reviewed. No recent changes with only minimal insulin requirements. Continues on empagliflozin 10mg, continues on cycled tube feeds with insulin for correction. We will sign off on this patient for now. Please feel free to contact us with questions or if you would like us back involved in her care. Objective Temp: [36.5 ??C (97.7 ??F)-36.8 ??C (98.2 ??F)] Heart Rate: [83-85] Resp: [16] BP: (108-148)/(51-75) SpO2: [93 %-95 %] Heart Rate from SpO2: [61 bpm-88 bpm] Current Regimen from previous note Lantus:10??units?? Humalog??75/25??mixed insulin: HOLD until TFs at goal and pt is tolerating.?? Lispro for correction q 4 hours based on a correction factor of??20?? Diet: NPO for OR Monitoring:??Q4 Recent Glucose Levels Recent Labs 09/15/22 1115 09/15/22 0630 09/15/22 0258 09/14/22 2329 09/14/22 1922 09/14/22 1538 09/14/22 1101 09/14/22 0633 09/14/22 0329 09/13/22 2330 09/13/22 1924 09/13/22 1540 POCGLU 133 95 114 124 120 132 128 94 109 147 149 126 ASSESSMENT Ishan Irving is a 62 year old female with a medical history notable for??recent L femoral neck fracture,??bipolar disorder, resolving medication- induced Parkinsonism, insulin-dependent diabetesmellitus,??hx of alcohol use disorder (reported to be in remission for 1.5 years) c/b chronic pancreatitis, iron deficiency anemia,??GERD??c/b??esophagitis &??Farrell's esophagus??presenting in transfer from [facility], suspected to be in cardiogenic shock and found to be in mixed shock with concern for stress cardiomyopathy.??A1C of 6.2% upon admission suggesting an average BG of??131??mg/dL for the past 6-8 weeks. Currently has variability of blood glucose levels while hospitalized requiring adjustment of insulin regimen and DM medications. TFs continue, minimal insulin requirements, lantus has been discontinued with BGs trending lower, continues on empgaliflozin 10mg. Glucose management signing off at this time. Reached out to primary team to sign off for now. I feel at this time correction could be changed to a sensitive scale and monitoring could be decreased to 4 x daily with her pattern of stable overnight blood sugars. PLAN CHANGE Lispro for correction q 4 hours based on a correction factor of 40 Diet TF: Peptamen AF 90 mls/hr x 14 hours. Monitoring: decrease to 4 x daily with stable overnight blood sugars Elsie Erickson APRN [facility] Endocrinology Diabetes Management Pager [phone] * Briana Bryant, BRAYDON - 09/15/2022 8:38 AM EDT Speech Therapy Note Patient Profile: Ishan Irving is a 62 year old female with a medical history notable for??recent L femoral neck fracture,??bipolar disorder, resolving medication-induced Parkinsonism, insulin-dependent diabetes mellitus,??hx of alcohol use disorder (reported to be in remission for 1.5 years) c/b chronic pancreatitis, iron deficiency anemia,??GERD??c/b??esophagitis &??Farrell's esophagus??presenting in transfer from [facility]??on 08/14/2022, suspected to be in cardiogenic shock and found to be in mixed shock with concern for stress cardiomyopathy.??GAS STATION SUPERVISOR following for swallow, cognitive tx. MBS completed 08/31/22 noting moderate-severe oropharyngeal dysphagia. Strong clinical s/s esophageal dysphagia. Interval History: 09/11/22: Gtube placed. Pt has been tolerating TF well since then. Intermittent nausea, some small amounts emesis, pt taking small amounts ice chips for comfort Subjective: ?? I don't want anything else right now. Pt declining offers of trials of liquids at this time. Taking small amounts ice chips. ?? Family present, states that GI MD will not pursue esophageal dilitation during this admission. Wants pt to gain wt and tolerate Gtube well. Will plan for OP procedure in future. Objective: Pt seen for dysphagia management and demonstrated the following: Pain: no complaints, pt resting in bed Respiratory Status: Room air Current Diet: NPO diet (Give Meds); Gtube TF Feeding / Oral Care Status: Pt is independent Cognitive-Linguistic Status: Fully Conscious: Awake, alert, oriented x3, comprehends spoken or written words, follows commands Orientation Lo/30 Command Following: Follows single step commands Positioning: HOB at 80 degrees Oral / Laryngeal Mechanism Clinical Assessment: grossly intact, some generalized weakness persists Bolus Presentation(s): ?? Ice chips Oral Preparatory Phase: WFL Pharyngeal Phase: WFL Esophageal Phase: pt w/ intermittent emesis, known esophageal stenosis Education: Educated pt/family on benefit of continuing w/ small amounts ice chips, water, thin liquids as tolerated, as well as excellent oral care, in order to maintain oropharyngeal swallow ability, in hopes that esophageal dilitation in the future may allow for functional PO intake again. Discussed w/ RN. Assessment: Pt was seen today for a follow-up [employer] visit. Oral and pharyngeal swallow function appear grossly intact clinically, however, severe esophageal stenosis limiting pt's ability to tolerate even small amounts of oral intake w/o some n/v. Encouraging pt to continue w/ small amounts ice chips/ sips water- clears, to maintain swallow function. GI plan to attempt dilitation in future as OP asper family. Pt will benefit from continued therapeutic interventions to achieve therapy goals. Diagnosis: esophageal dysphagia Recommendations: Diet: Sips / chips for comfort / swallow maintenance; Gtube feeds for nutrition, hydration, medications Aspiration Precautions: Upright position during any oral intake, maintain upright for 30 min after Excellent oral care Plan: Therapy Frequency ([employer] Eval): Monitor while hospitalized Pt./family are in agreement with treatment plan. Total Minutes (Speech Language Pathology): 10 Briana Bryant MA, [facility] Pager: [phone] Speech-Language Pathology Inpatient Rehabilitation Medicine * Chau Keith MD - 09/15/2022 6:34 AM EDT Images from the original note were not included. Inpatient Hospital Medicine Progress Note 09/15/2022 Patient Name: ISHAN IRVING Date of : 1960 Age: 62 y.o. Hospital Admit Date: 08/14/2022 Hospital Day: 32 Inpatient Attending: Balaji Mayer MD PCP: Chris Stanley APRN ([phone]) ID: Ishan Irving is a 62 y.o. 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.5 years) c/b chronic pancreatitis, iron deficiency anemia, ??GERD??c/b??esophagitis &??Farrell's esophagus, who was admitted to [facility] on 08/14/2022 (now on Hospital Day #32) for mixed shock and stress cardiomyopathy who transferred to Hospital Medicine due to persistent dysphagia. 24 HOUR EVENTS & SUBJECTIVE: Yesterday: ?? Doing well with G-tube. ?? Continuing tube feeds. Overnight: ?? No acute events overnight. Today AM: ?? The patient reports doing well and denies any acute medical complaints. OBJECTIVE: Vitals: Last value Range last 24 hrs Temperature Temp: 36.6 ??C (97.9 ??F) Temp: [36.5 ??C (97.7 ??F)-36.8 ??C (98.2 ??F)] Heart Rate Heart Rate: 85 Heart Rate: [85] Blood Pressure BP: 108/51 BP: (108-141)/(51-71) Art Line BP BP (Arterial Line): 111/70 BP (Arterial Line): -- MAP (NBP): [70 mmHg-94 mmHg] Respiratory Rate Resp: 16 Resp: [16] SpO2 SpO2: 95 % SpO2: [93 %-95 %] Oxygen Delivery Oxygen Therapy O2 Device: None (Room air) O2 Flow Rate (L/min): 6 L/min FiO2 (%): 21 % Reason for Oxygen: Patient currently on room air Intake/Output Summary (Last 24 hours) at 09/15/2022 0915 Last data filed at 09/14/2022 2335 Gross per 24 hour Intake 807 ml Output 300 ml Net 507 ml I/O last 3 completed shifts: In: 1277 [I.V.:10; NG/GT:1237] Out: 905 [Urine:900; Other:5] Last Bowel Movement: 09/13/22 (per pt report) Body mass index is 28.92 kg/m??. Patient Vitals for the past 168 hrs: Weight 09/13/22 0638 67.2 kg (148 lb 1.6 oz) 09/09/22 0354 64.5 kg (142 lb 1.6 oz) Admit wt: 69 kg Physical Exam: GENERAL: Awake, no acute distress HEENT: Anicteric, no conjunctival injection CV: RRR, no murmurs/rubs/gallops, WWP PULM: Normal respiratory effort, CTA with good air entry bilaterally, coarse bibasilar breath sounds minimal ABDOMEN: Soft, non-tender, non-distended, no masses, no guarding EXTREMITIES: No lower extremity edema. No clubbing or cyanosis PSYCH/NEURO: Intact cognition, no tremor. Intermittent soft smiles. SKIN: Warm, dry, no rashes LABS: CBC: Recent Labs 09/15/22 0300 09/14/22 0333 09/13/22 0315 09/12/22 0325 09/11/22 0405 WBC 5.9 5.5 5.2 5.3 4.5 HGB 10.2* 10.1* 9.2* 9.6* 9.0* HCT 34.4* 33.7* 30.9* 32.4* 30.2* PLATELET 252 246 239 241 219 NEUTROABS 2.78 2.69 2.31 4.22 2.39 Chemistry: Recent Labs 09/15/22 0300 09/14/22 0333 09/13/22 1238 09/13/22 0315 09/12/22 1540 NA 140 140 140 141 140 K 4.0 4.1 3.8 3.6 4.0 CL 102 102 101 103 102 CO2 27 28 26 29 24 BUN 11 10 8 8 7* CREATININE 0.44* 0.45* 0.50* 0.52* 0.53* GLUCOSE 121 Not Perf 115 87 103 ANIONGAP 11 10 13 9 14 Recent Labs 09/15/22 0300 09/14/22 0333 09/13/22 1238 09/13/22 0315 09/12/22 1540 09/12/22 0325 09/11/22 0405 CALCIUM 9.2 9.1 9.1 8.8 9.4 9.2 8.9 MAGNESIUM 0.77 0.74 -- 0.78 0.93 0.76 -- PHOS 2.6 2.9 -- 3.0 -- 3.6 2.8 LFT's: Recent Labs 08/20/22 1400 08/15/22 0950 08/15/22 0305 BILITOT <0.2* <0.2* 0.2 BILIDIR 0.1 0.1 0.1 ALBUMIN 2.5* 2.4* 2.4* ALKPHOS 213* 102 99 ALT 20 12 13 AST 39* 21 25 Cardiac enzymes: Recent Labs 08/19/22 0120 08/14/22 2355 CK 32 -- PROBNP -- >35,000* Endocrine: Recent Labs 08/20/22 1400 08/15/22 0000 TSH 1.90 0.28 Recent Labs 08/15/22 0305 HA1C 6.2* CRP, Sed Rate Recent Labs 08/21/22 1200 CRP 19.4* SEDRATE >119* Lipids: Lab Results Component Value Date CHLPL 110 08/29/2022 HDL 34 08/29/2022 CHOLHDL 3.2 08/29/2022 TRIG 127 08/29/2022 LDLCHOL 51 08/29/2022 EKG: Lab Results Component Value Date/Time DIAGLINE 09/07/2022 0635 Normal sinus rhythm with sinus arrhythmia Low voltage QRS T wave abnormality, consider anterolateral ischemia Abnormal ECG When compared with ECG of 01-SEP-2022 02:24, No significant change was found I personally reviewed the tracing and edited the fellows interpretation Confirmed by fellow Niurka Rose ([id number]) on 09/07/2022 8:45:34 AM Confirmed by MD ALEJANDRA, RICHARD ([id number]) on 09/07/2022 1:55:43 PM QTCCALC 455 09/07/2022 0635 Microbiology: No results found for: URINECULTURE Lab Results Component Value Date/Time BLOODCX No growth at 5 days. 08/19/2022 1720 BLOODCX No growth at 5 days. 08/19/2022 1330 Microbiology Results (Last 30 days) Procedure Component Value Units Date/Time Lower Respiratory Culture Bronchial Alveolar Lavage [[id number]] Collected: 08/21/22 1650 Lab Status: Final result Specimen: Bronchial Alveolar Lavage Updated: 08/23/22 0741 Lower Respiratory Culture Rare mixed bacterial morphotypes suggestive of normal upper respiratory wiley Gram Stain -- Few Neutrophils seen No squamous epithelial cells seen No microorganisms seen. Fungus Culture & Calc Stain Bronchial Alveolar Lavage [[id number]] (Abnormal) Collected: 08/21/221649 Lab Status: Preliminary result Specimen: Bronchial Alveolar Lavage Updated: 08/24/22 1452 AFB culture Bronchial Alveolar Lavage [[id number]] Collected: 08/21/221649 Lab Status: Preliminary result Specimen: Bronchial Alveolar Lavage Updated: 08/24/22 2219 Acid Fast Bacilli Culture -- No Acid Fast Bacilli isolated to date If active tuberculosis is suspected, the patient should be on [employer] PRECAUTIONS. Call Infection Prevention for assistance if needed. Acid Fast Stain No Acid Fast Bacilli seen Fungus culture [[id number]] (Abnormal) Collected: 08/21/221649 Lab Status: Preliminary result Specimen: Bronchial Alveolar Lavage Updated: 08/24/22 145 Fungus Culture Rare Jacky albicans Calcofluor White Stain [[id number]] Collected: 08/21/221649 Lab Status: Final result Specimen: Bronchial Alveolar Lavage Updated: 08/21/22 2016 Calcofluor Stain Calcofluor White Preparation: Negative Lower Respiratory Culture Bronchial Alveolar Lavage [[id number]] Collected: 08/21/221644 Lab Status: Final result Specimen: Bronchial Alveolar Lavage Updated: 08/23/22 0741 Lower Respiratory Culture Rare mixed bacterial morphotypes suggestive of normal upper respiratory wiley Gram Stain -- Moderate Neutrophils seen No squamous epithelial cells seen No microorganisms seen. Fungus Culture & Calc Stain Bronchial Alveolar Lavage [[id number]] (Abnormal) Collected: 08/21/221644 Lab Status: Preliminary result Specimen: Bronchial Alveolar Lavage Updated: 08/24/22 145 AFB culture Bronchial Alveolar Lavage [[id number]] Collected: 08/21/221644 Lab Status: Preliminary result Specimen: Bronchial Alveolar Lavage Updated: 08/24/22 2221 Acid Fast Bacilli Culture -- No Acid Fast Bacilli isolated to date If active tuberculosis is suspected, the patient should be on [employer]BORNE PRECAUTIONS. Call Infection Prevention for assistance if needed. Acid Fast Stain No Acid Fast Bacilli seen Fungus culture [[id number]] (Abnormal) Collected: 08/21/221644 Lab Status: Preliminary result Specimen: Bronchial Alveolar Lavage Updated: 08/24/221452 Fungus Culture Rare Jacky albicans Calcofluor White Stain [[id number]] Collected: 08/21/22 1645 Lab Status: Final result Specimen: Bronchial Alveolar Lavage Updated: 08/21/22 2017 Calcofluor Stain Calcofluor White Preparation: Negative Blood culture [[id number]] Collected: 08/19/22 1720 Lab Status: Final result Specimen: Blood Updated: 08/24/22 2301 Blood Culture No growth at 5 days. Lower Respiratory Culture Sputum Induced [[id number]] Collected: 08/19/22 1451 Lab Status: Final result Specimen: Sputum Induced Updated: 08/21/22 0948 Lower Respiratory Culture Rare mixed bacterial morphotypes suggestive of normal upper respiratory wiley Gram Stain -- Many Neutrophils seen Few squamous epithelial cells seen No microorganisms seen. Blood culture [[id number]] Collected: 08/19/22 1330 Lab Status: Final result Specimen: Blood Updated: 08/24/22 1501 Blood Culture No growth at 5 days. Legionella Urinary Antigen [[id number]] Collected: 08/18/22 1013 Lab Status: Final result Specimen: Urine Updated: 08/18/22 2252 Legionella Urinary Antigen Negative Comment: A negative Legionella Urinary Antigen by EIA suggests no recent or current infection with L. pneumophila Serogroup 1. Antigen may not be present in urine in early infection, and the level of antigen present in the urine may be below the detection limit of the test. Sensitivity: 95% Specificity 95%. Imaging/Diagnostics: Results for orders placed or performed during the hospital encounter of 08/14/22 XR Chest One View (Exam End: 08/15/2022 1:00 AM) Impression FINDINGS/IMPRESSION: * Moderate pulmonary edema. * No confluent airspace opacity otherwise seen. * Cannot exclude small pleural effusions. * Cardiomediastinal contours appear within normal limits. * Endotracheal tube tip projects 3.8 cm above the consuelo. * RIGHT neck central catheter, distal catheter coiled over the region of the RIGHT ventricle and pulmonary trunk. Thank you for letting us participate in the care of this patient. If you are a health care provider and have any questions regarding this report, please contact the number below. For patients who have questions please contact the health acute care physician that requested your imaging first. Abdomen 1 view (Generic) (Exam End: 08/15/2022 8:33 AM) Impression The enteric tube sidehole is not definitively subdiaphragmatic. Recommend advancement. Preliminary report signed by: Carlos Wolff at 08/15/2022 9:00 AM I have personally reviewed the image(s) and the resident's interpretation and agree with the findings, Liliane Adams MD at 08/15/2022 9:05 AM Thank you for letting us participate in the care of this patient. If you are a health care provider and have any questions regarding this report, please contact the number below. For patients who have questions please contact the health acute care physician that requested your imaging first. Electronically signed by: Liliane Adams MD, [facility] ([phone]), at 08/15/2022 9:05 AM XR Chest One View (Exam End: 08/15/2022 1:14 AM) Impression FINDINGS/IMPRESSION: * RIGHT neck central catheter redemonstrated terminating over the region of the pulmonary trunk, now uncoiled distally although the tip is looped. * Moderate pulmonary edema redemonstrated. * ET tube projects similar. Thank you for letting us participate in the care of this patient. If you are a health care provider and have any questions regarding this report, please contact the number below. For patients who have questions please contact the health acute care physician that requested your imaging first. Abdomen 1 view (Generic) (Exam End: 08/15/2022 6:38 AM) Impression Nonspecific/nondiagnostic appearance of the abdomen, with large stool burden in the RIGHT hemiabdomen and pelvis. Thank you for letting us participate in the care of this patient. If you are a health care provider and have any questions regarding this report, please contact the number below. For patients who have questions please contact the health acute care physician that requested your imaging first. Chest One View (Exam End: 08/16/2022 10:31 AM) Impression PA catheter has a persistent loop near the tip, similar to the prior comparison study. Improved pulmonary edema. Thank you for letting us participate in the care of this patient. If you are a health care provider and have any questions regarding this report, please contact the number below. For patients who have questions please contact the health acute care physician that requested your imaging first. Electronically signed by: Alfonso Adams MD, [facility] ([phone]), at 08/16/2022 10:[address] Head wo Contrast (Generic) (Exam End: 08/16/2022 10:44 PM) Impression No acute intracranial abnormality and no change from prior Thank you for letting us participate in the care of this patient. If you are a health care provider and have any questions regarding this report, please contact the number below. For patients who have questions please contact the health acute care physician that requested your imaging first. Electronically signed by: Moustapha Correa MD, [facility] ([phone]), at 08/16/2022 11:19 PM XR Abdomen 1 view (Generic) (Exam End: 08/17/2022 12:09 PM) Impression Status post Dobbhoff tube placement with catheter tip terminating at the approximate position of greater curvature. I have personally reviewed the image(s) and the resident's interpretation and agree with the findings, Jenn Pina MD at 08/17/2022 2:31 PM Thank you for letting us participate in the care of this patient. If you are a health care provider and have any questions regarding this report, please contact the number below. For patients who have questions please contact the health acute care physician that requested your imaging first. Head wo Contrast (Generic) (Exam End: 08/18/2022 3:14 PM) Impression No acute intracranial process. Thank you for letting us participate in the care of this patient. If you are a health care provider and have any questions regarding this report, please contact the number below. For patients who have questions please contact the health acute care physician that requested your imaging first. Electronically signed by: Antonio Jordan MD, [facility] ([phone]), at 08/18/2022 3:18 PM XR Chest One View (Exam End: 08/19/2022 12:30 PM) Impression 1. Increased bibasilar airspace opacities compared to radiograph 08/16/2022, concerning for an infectious/inflammatory process. A component of edema not excluded. 2. Overall decreased pulmonary edema. I have personally reviewed the image(s) and the resident's interpretation and agree with the findings, Alan De Guzman MD at 08/19/2022 3:14 PM Thank you for letting us participate in the care of this patient. If you are a health care provider and have any questions regarding this report, please contact the number below. For patients who have questions please contact the health acute care physician that requested your imaging first. Electronically signed by: Alan De Guzman MD, [facility] ([phone]), at 08/19/2022 3:14 PM MRI Brain wo Contrast (Exam End: 08/19/2022 10:15 PM) Impression No acute infarction, mass or mass effect. Thank you for letting us participate in the care of this patient. If you are a health care provider and have any questions regarding this report, please contact the number below. For patients who have questions please contact the health acute care physician that requested your imaging first. Chest for Verifying Vascular Access PICC Placement At Bedside (Exam End: 08/19/2022 4:36 PM) Impression PICC tip is in the superior vena cava above the right atrium. Thank you for letting us participate in the care of this patient. If you are a health care provider and have any questions regarding this report, please contact the number below. For patients who have questions please contact the health acute care physician that requested your imaging first. Electronically signed by: Alan De Guzman MD, [facility] ([phone]), at 08/19/2022 4:[address] Hip w Contrast Left (Exam End: 08/20/2022 11:04 PM) Impression 1. Uncomplicated left femoral neck ORIF with unchanged postoperative alignment. 2. Moderate skin thickening and subcutaneous stranding about the lateral left hip with lateral left thigh intramuscular edema and fascial thickening. These findings are nonspecific and may be seen in the routine postoperative setting. Underlying soft tissue infection with infectious or inflammatory myositis may also have this appearance. Correlation with physical examination, clinical symptoms, and laboratory findings is recommended. 3. 2.3 x 1.6 x 1.8 cm focus of more coalescent fluid attenuation centered in the subcutaneous fat of the posterolateral thigh roughly at the level of the proximal femoral fixation screw heads. There is no rim-enhancing to suggest a mature, organized abscess at this time. However, this finding could represent phlegmon in appropriate clinical context, or it could represent a postsurgical collection, the contents of which may be sterile or infected. 4. There is a rectal tube in place. However, there remains a large stool ball in the rectum with free fluid versus coalescent edema on both the anterior and posterior margins of the distended rectum. In appropriate clinical context, these findings could represent proctocolitis or stercoral colitis. I have personally reviewed the image(s) and the resident's interpretation and agree with the findings, Aicha Chowdhury MD at 08/21/2022 9:34 AM Thank you for letting us participate in the care of this patient. If you are a health care provider and have any questions regarding this report, please contact the number below. For patients who have questions please contact the health acute care physician that requested your imaging first. Electronically signed by: Aicha Chowdhury MD, [facility] ([phone]), at 08/21/2022 9:[address] Chest w Contrast (Exam End: 08/20/2022 11:04 PM) Impression 1. Multifocal lower lobe predominant consolidative opacities with additional upper lobe opacities consistent with multifocal pneumonia. Compared to the prior CT of 08/12/2022 the number and size of the opacities has decreased. Recommend follow-up imaging in 3-6 months to document complete resolution. 2. New small, sub-1 cm early cavitation of multiple opacities predominantly within the posterior left upper lobe and left lower lobe. 3. New curvilinear splenic lesions could represent infarct versus late arterial phase splenic arterial opacification. Thank you for letting us participate in the care of this patient. If you are a health care provider and have any questions regarding this report, please contact the number below. For patients who have questions please contact the health acute care physician that requested your imaging first. Hip 2-3 Views Left (Exam End: 08/22/2022 12:19 AM) Impression No radiographic evidence of infection. Thank you for letting us participate in the care of this patient. If you are a health care provider and have any questions regarding this report, please contact the number below. For patients who have questions please contact the health acute care physician that requested your imaging first. Electronically signed by: Viktor Cervantes MD, [facility] ([phone]), at 08/22/2022 12:43 PM XR Pelvis (Generic) (Exam End: 08/22/2022 12:19 AM) Impression No radiographic evidence of infection status post left hip ORIF. Thank you for letting us participate in the care of this patient. If you are a health care provider and have any questions regarding this report, please contact the number below. For patients who have questions please contact the health acute care physician that requested your imaging first. Electronically signed by: Richard Billings MD, [facility] ([phone]), at 08/22/2022 10:[address] Angiogram Coronary Arteries (Exam End: 08/27/2022 8:58 AM) Impression Coronary calcium score of 0, consistent with no detectable calcified atherosclerotic plaque burden. No evidence of stenosing soft plaque on the coronary CT arteriogram. CAD RADS 0 Ongoing bilateral pulmonary infectious/inflammatory changes with persistent consolidative opacity especially in the left lower lobe. This could represent a multifocal pneumonia. Recommend follow-up CT in 3 months to assess for resolution. Thank you for letting us participate in the care of this patient. If you are a health care provider and have any questions regarding this report, please contact the number below. For patients who have questions please contact the health acute care physician that requested your imaging first. Electronically signed by: Arlette Mays MD, [facility] ([phone]), at 08/27/2022 11:[address] Chest wo Contrast (Generic) (Exam End: 08/27/2022 8:58 AM) Impression Stable findings of multifocal pneumonia. No interval abnormality. Thank you for letting us participate in the care of this patient. If you are a health care provider and have any questions regarding this report, please contact the number below. For patients who have questions please contact the health acute care physician that requested your imaging first. Electronically signed by: MINH QUIROGA MD, [facility] ([phone]), at 08/27/2022 10:48 AM XR Fluoro Barium Swallow (Modified/Video Swallow Pharynx) (Exam End: 08/31/2022 11:23 AM) Impression Abnormal modified barium swallow as above. Please see speech pathology report for further discussion. Thank you for letting us participate in the care of this patient. If you are a health care provider and have any questions regarding this report, please contact the number below. For patients who have questions please contact the health acute care physician that requested your imaging first. Electronically signed by: Aron Billings MD, [facility] ([phone]), at 08/31/2022 12:02 PM XR Fluoro Barium Swallow (Modified/Video Swallow Pharynx) (Exam End: 09/04/2022 10:25 AM) Impression 1. Penetration of the airway and aspiration with thin liquids, especially with rapid sips of thin barium. 2. Flash penetration of nectar thick liquids from a straw. 3. Reflux of residual barium within the esophagus on multiple swallows. I have personally reviewed the image(s) and the resident's interpretation and agree with the findings, Alfonso Adams MD at 09/04/2022 10:57 AM Thank you for letting us participate in the care of this patient. If you are a health care provider and have any questions regarding this report, please contact the number below. For patients who have questions please contact the health acute care physician that requested your imaging first. Electronically signed by: Alfonso Adams MD, [facility] ([phone]), at 09/04/2022 10:57 AM XR Abdomen 1 view (Generic) (Exam End: 09/04/2022 9:47 PM) Impression 1. On the chest radiograph at 2136 hours the enteric tube projects over the mid esophagus. On the abdominal radiograph at 2139 hours the enteric tube now projects below the diaphragm with tip partially visualized projecting over the left mid abdomen. 2. Lower lobe predominant patchy and reticular airspace opacities consistent with sequela of multifocal pneumonia. The appearance is improved compared to prior radiograph. Thank you for letting us participate in the care of this patient. If you are a health care provider and have any questions regarding this report, please contact the number below. For patients who have questions please contact the health acute care physician that requested your imaging first. Chest One View (Exam End: 09/04/2022 9:47 PM) Impression 1. On the chest radiograph at 2136 hours the enteric tube projects over the mid esophagus. On the abdominal radiograph at 2139 hours the enteric tube now projects below the diaphragm with tip partially visualized projecting over the left mid abdomen. 2. Lower lobe predominant patchy and reticular airspace opacities consistent with sequela of multifocal pneumonia. The appearance is improved compared to prior radiograph. Thank you for letting us participate in the care of this patient. If you are a health care provider and have any questions regarding this report, please contact the number below. For patients who have questions please contact the health acute care physician that requested your imaging first. Chest One View (Exam End: 09/05/2022 9:24 AM) Impression 1. Reposition enteric tube now extending below the diaphragm and included [id number]. 2. Similar appearance of elevated right hemidiaphragm and linear/patchy bibasilar opacities which may represent atelectasis or possibly aspiration. Thank you for letting us participate in the care of this patient. If you are a health care provider and have any questions regarding this report, please contact the number below. For patients who have questions please contact the health acute care physician that requested your imaging first. Electronically signed by: AUDI PERDOMO MD, [facility] ([phone]), at 09/05/2022 3:43 PM XR Abdomen 1 view (Generic) (Exam End: 09/10/2022 1:04 AM) Impression Dobbhoff with tip at the level of the pyloric region. I have personally reviewed the image(s) and the resident's interpretation and agree with the findings, Camille Garcia MD at 09/10/2022 1:16 AM Thank you for letting us participate in the care of this patient. If you are a health care provider and have any questions regarding this report, please contact the number below. For patients who have questions please contact the health acute care physician that requested your imaging first. Electronically signed by: Camille Garcia MD, [facility] ([phone]), at 09/10/2022 1:16 AM Medications: Scheduled: ??? gabapentin 100 mg Oral TID ??? atorvastatin 80 mg Per G Tube QPM ??? buPROPion 100 mg Per G Tube Daily ??? ergocalciferoL (vitamin D2) 50,000 Units Per G Tube Weekly ??? ferrous sulfate 300 mg Per G Tube Every Other Day ??? folic acid 1,000 mcg Per G Tube Daily ??? melatonin 6 mg Per G Tube Nightly ??? metoprolol tartrate 12.5 mg Per G Tube 2 times per day ??? QUEtiapine 100 mg Per G Tube Nightly ??? sacubitriL-valsartan 1 tablet Per G Tube BID ??? valproic acid 300 mg Per G Tube Q6H ??? thiamine 100 mg Per G Tube Daily ??? empagliflozin 10 mg Oral Daily ??? insulin lispro 1-10 Units Subcutaneous Q4H LAZARUS ??? miconazole nitrate Topical (Top) BID ??? lidocaine 3 patch Transdermal Q24H ??? enoxaparin 40 mg Subcutaneous Daily ??? chlorhexidine 15 mL Oral BID ??? pantoprazole 40 mg Intravenous BID ??? sodium chloride 0.9 % (flush) 5 mL Intravenous BID Continuous: ??? tube feeding diet 1,260 mL (09/15/22 0629) PRN: acetaminophen, prochlorperazine, ondansetron, diclofenac, polyethylene glycoL, senna, bisacodyL, sodium chloride 0.9 % (flush), lidocaine, glucose 40% oral geL OR dextrose 10% OR glucagon ASSESSMENT and PLAN: Ishan Irving is a 62 y.o. 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.5 years) c/b chronic pancreatitis, iron deficiency anemia,??GE RD??c/b??esophagitis &??Farrell's esophagus, who was admitted to [facility] on 08/14/2022 (now on Hospital Day #23) for mixed shock and stress cardiomyopathy who transferred to Hospital Medicine due to persistent dysphagia. 09/15/22 Ishan continues to do well today status post G-tube placement. Will need retention increased in 7to 10 days following placement. Otherwise, the patient is medically ready for discharge pending rehab placement. Unfortunately her disposition is complicated by her insurance that lacks rehab coverage requiring detention care medicaid. Her application has been submitted. Otherwise, she is awaiting rehab placement. However, may consider home with services if the patient continues to improve and placement does not become available. Otherwise, we will uptitrate the patient's GDMT today and remove her PICC line. Today's plan: - Continue tube feeds via G tube - Adjust insulin regimen as appropriate and monitor for refeeding syndrome - Will need retention anchors out in the next week - Consider removing PICC line - Start metoprolol tartrate 25 mg twice daily - Start spironolactone 12.5 mg daily # Bipolar Disorder - Continue Seroquel 100mg nightly - C/w valproate 300mg q6h - [employer] following, NPO at present - Psychiatry Consult, appreciate recs - Continue Wellbutrin IR 100mg qD as other formulations cannot be crushed # Medication-induced Parkinsonism # Dysphagia # Esophageal stricture # GERD c/b Farrell's esophagus & esophagitis - f/u with GI outpatient for severe stricture - G tube in place as of 09/11 - Continue tube feeds via G tube - Will need retention anchors out in 7-10 days # Acute hypoxic respiratory failure, resolved # Bilateral airspace opacities/multifocal pneumonia, resolved -??Respiratory support with LFNC PRN - Antibiotics: Status post zosyn for pneumonia - Fungitell and Fungal Cx positive, no change in management per ID - CT Chest showed persistent pneumonia; ID followed, patient completed course of antibioitics ?? # Distributive Shock, resolved # NSTEMI Type I vs Type II, resolved # HFrEF (EF 25%) #Stress Cardiomyopathy - Will not perform LHC given results of CTA coronary arteries - ASA 81mg - Entresto 24-26 1 tab BID - Start metoprolol tartrate 25 mg twice daily - Start spironolactone 12.5 mg daily - Empagliflozin 10mg as part of GDT - She will need a repeat TTE after 3 months (~11/18) - Mg >1, K >4 ?? # Constipation- resolved # Rectal wall edema 2/2 stool ball - Has Miralax, senna, dulcolax PRN ordered - Continue home pantoprazole 40 BID ?? # Insulin-dependent diabetes -??Diabetes Management consulted, appreciate recs # Mixed JERRICA and ACD - Oral iron supplementation started 08/21 > s/p 1 dose of Venofer - Ferritin, Iron, TIBC resulted; mixed picture - Transfuse for Hb <8 - S/p 1u pRBC 08/22 ?? # Septic shock # Bilateral airspace opacities/multifocal pneumonia # L Hip Fluid Collection # Subcentimeter left posterior upper lobe cavitary lesions - Infectious work-up initially did not yield any clear causative organisms - S/p BAL 08/21 without any growth to date. - IR, orthopedic surgery consulted for evaluation of L hip fluid collection. No intervention/drainable target. - Stopped zosyn as per ID (08/14- 08/23) - Fungal testing positive no change in management at this time per ID #Severe Vitamin D Deficiency #Fragility Fracture - ergocalciferol 50,000U weekly x8 weeks (to end 10/13) - calcium via tube feed - Endocrinology consult > will follow up when d/c from hospital - DXA after discharge - future anabolic agent after recovery from vitamin D deficiency #Bilateral lower extremity neuropathic pain ?? Continue gabapentin #Housekeeping: DVT PPx: LMWH GI PPx: N/a Diet: NPO diet (Give Meds) Lines: PICC Line - Double Lumen 08/19/22 1655 basilic vein (medial side of arm), right 5 Fr (Active) Number of days: 26 D/c planning: Acute rehab Code status: Attempt Cardiopulmonary Resuscitation - Inpatient Chau Keith MD Internal Medicine PGY1 Medicine Team: Jose Juan, Pager #[phone] Date: 09/15/2022 Associated attestation - Balaji Fraga MD - 09/15/2022 12:54 PM EDT Attending Attestation and Certification Please see Chau Keith MD's note for details of the patient history of presentation and data. I have discussed, reviewed and agree with the documented History, Physical findings, Assessment and Plan of care. I have not examined the patient myself, however, I have personally reviewed the pertinent studies and am intimately involved in the patient's care. In addition I certify that I am a [facility] credentialed attending provider with admitting privileges and that the patient meets or has met medical necessityrequiring an inpatient IPI level of care meeting a minimum of two midnights or is on the [facility] inpatient only procedure list (status C) due to: the patient has met Inpatient IPI criteria and is awaiting rehabilitation or [facility] facility placement with active referrals in process * Wilda Blankenship, RD - 09/14/2022 3:04 PM EDT Nutrition Progress Note Ishan Irving is a 62 y.o.??female??with h/o bipolar, DM, EtOH, esophagitis, who presented to [facility] 3 days ago after being found unresponsive at home.?Patient found to have likely pneumonia +/- aspiration, newly reduced EF. Reason for Assessment: Tube Feeding, Follow-up Nutrition Recommendations: Continue current Tube feeding Cyclic Peptamen AF at 90ml/hr for 14 hrs from [id number] At goal, this will provide: Peptamen AF Total Volume Per Day: 1260 mL Scoops of Protein: 0 Calories per Day: 1512 Protein per Day: 96 g Free Water mL per Day: 1023 % RDI: 101 % Monitor hydration status on above TFs as they are concentrated. Pt may need additional fluids depending on IVFs, med flushes, p.o. Intake, etc. Po diet per [employer] (recs 09/04 NPO s/p MBS) Continue 50,000 units vitamin D weekly; 1000 mcg folic acid and 100 mg thiamine daily. Recheck vitamin D in November Current Nutrition Regimen: Active Orders Diet NPO diet (Give Meds) Frequency: Effective Now Number of Occurrences: Until Specified All Active TF Orders: Tubefeeding Orders (From admission, onward) Start Dose/Rate Route Frequency Ordered Stop 09/12/22 1330 tube feeding diet 1,260 mL 90 mL/hr Per G Tube Cyclic-(Tube feed) 09/12/22 1236 Average tube feeding provision over past 3 days: I/o not consistently completed TF volume Tolerance or barriers to meeting needs: holds due to PEG scheduling Assessment: Lab Results Component Value Date NA 140 09/14/2022 K 4.1 09/14/2022 CL 102 09/14/2022 CO2 28 09/14/2022 BUN 10 09/14/2022 CREATININE 0.45 (L) 09/14/2022 ESTGFR 109 09/14/2022 MAGNESIUM 0.74 09/14/2022 CALCIUM 9.1 09/14/2022 PHOS 2.9 09/14/2022 AST 39 (H) 08/20/2022 ALT 20 08/20/2022 ALKPHOS 213 (H) 08/20/2022 BILITOT <0.2 (L) 08/20/2022 BILIDIR 0.1 08/20/2022 TRIG 127 08/29/2022 CRP 19.4 (H) 08/21/2022 HA1C 6.2 (H) 08/15/2022 25OHVITD 12 (L) 08/24/2022 IRON 25 (L) 08/21/2022 Lab Results Component Value Date POCGLU 128 09/14/2022 POCGLU 94 09/14/2022 POCGLU 109 09/14/2022 POCGLU 147 09/13/2022 POCGLU 149 09/13/2022 POCGLU 126 09/13/2022 Patient Lines/Drains/Airways Status Active Nutritional LDAs Name Placement date Placement time Site Days Enterostomy Tube 09/11/22 1652 gastrostomy tube with balloon LUQ (left upper quadrant) feeding 09/11/22 1652 -- 3 PICC Line - Double Lumen 08/19/22 1655 basilic vein (medial side of arm), right 5 Fr 08/19/22 1655 -- 26 External Catheter 09/13/22 2344 09/13/22 2344 -- 1 Physical Findings Gastrointestinal: feeding tube Oxygen Therapy / Airway Device: None (Room air) Shift Pressure Injury Prevention Occiput: No Injury Thoracic Spine: No Injury Sacral: No Injury Ischial - left: No Injury Ischial - right: No Injury Heel - left: No Injury Heel - right: No Injury Elbow - left: No Injury Elbow - right: No Injury Device Sites: O2 sat monitor, IV sites Other Sites: idb Last Bowel Movement: 09/13/22 Intake/Output Summary (Last 24 hours) at 09/14/2022 1504 Last data filed at 09/14/2022 1021 Gross per 24 hour Intake 1090 ml Output 605 ml Net 485 ml Relevant medications: Vitamin D2, ferrous sulfate, folic acid, insulin:correction, protonix, thiamin Anthropometrics: Admit Weight: 69 kg Estimated body mass index is 28.92 kg/m?? as calculated from the following: Height as of 08/19/22: 152.4 cm (5'). Weight as of this encounter: 67.2 kg (148 lb 1.6 oz). [place] Body Weight (IBW) (kg): 45.45 Usual Body Weight: 70.3 kg (155 lb) Wt Readings from Last 10 Encounters: 09/13/22 67.2 kg (148 lb 1.6 oz) 08/19/22 73.1 kg (161 lb 2.5 oz) 07/03/22 69.9 kg (154 lb) 03/31/22 74.4 kg (164 lb) 02/12/22 78.7 kg (173 lb 9.6 oz) 09/23/21 78.5 kg (173 lb) 03/01/20 79.4 kg (175 lb) 11/22/18 80.3 kg (177 lb) 12/13/14 86.5 kg (190 lb 12.8 oz) 03/20/14 94 kg (207 lb 3.7 oz) Patient Vitals for the past 168 hrs: Weight 09/13/22 0638 67.2 kg (148 lb 1.6 oz) 09/09/22 0354 64.5 kg (142 lb 1.6 oz) 09/08/22 0621 64.8 kg (142 lb 14.4 oz) Weight Source: Bed Estimated / Assessed Needs: Kcal / K - 1737.5 Kcal (20 Kcal/Kg - 25 Kcal/Kg) Estimated Protein Needs: 83.4 - 104.25 g (1.2 g/Kg - 1.5 g/Kg) Nutrition intake and intake history / interview: Met with Ishan and at bedside, tolerating TF with no reported concerns. All question regarding TF/ nutrition answered at this time. Nutrition Focused Physical Exam: Not performed Malnutrition Diagnosis: Not identified (Andrea, JPEN J Parenteral Enteral Nutr. 2011; 36(3): 273-83) Nutrition to continue to follow up while inpatient THANKS Wilda Blankenship RD Pager #[phone] * Feroz Portillo PTA - 09/14/2022 2:05 PM EDT Physical Therapy Note Treatment Number PT: 11 Patient profile: Ishan Irving is a 62 y.o. female admitted on 08/14/2022 with a medical history notable for??recent L femoral neck fracture,??bipolar disorder, resolving medication-induced Parkinsonism, insulin-dependent diabetes mellitus,??hx of alcohol use disorder (reported to be in remission for 1.5 years) c/b chronic pancreatitis, iron deficiency anemia,??GERD??c/b??esophagitis &??Farrell's esophagus??presenting in transfer from [facility], suspected to be in cardiogenic shock and found to be in mixed shock with concern for stress cardiomyopathy. She is s/p ORIF left femoral neck fracture ~ 08/08 at OSH. Interval History: G tube placed /, tolerating tube feeds Social History: single level home w ramp to enter. 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 Pt drives, does all community chores. Does have a RW avail at home which she had been using since ORIF. Fall Hx: Spouse reports that pt slipped in a puddle of water left by the dog which is the cause of her hip fx Precautions/Special Considerations: WBAT L leg, Fall risk Mobility and Positioning Recommendations: ?? Pt able to stand pivot transfer with FWW and 2 assist ?? Please encourage up to chair for meal times as able. Subjective: I know I need to work on it re: sitting frequently Objective: Patient seen for physical therapy and demonstrated the following: Pain: no c/o pain Vital Signs: stable on room air. ?? Pt supine in bed, agreeable to therapy ?? Nursing assisted pt to edge of bed ?? Steady sitting edge of bed, able to scoot forward with supervision ?? Sit<->stand x 3, FWW, count to three, Min A ?? Stand pivot transfer from bed to wheelchair, FWW, Mod A ?? Brought up to in-pt gym ?? Stand pivot transfer to and from Nu step, FWW, Mod A, cues for UE push off and one hand on walker, count to three ?? Nu step for 5 minutes, steady pacing, monitor not working ?? Sit<->stand x 3 in the // bars, Mod A, cues for anterior weight shifting ?? Ambulated 7 ft x 3 in the // bars, step through gait, steady, CGA and chair follow ?? Sit<->stand x 4 from w/c to FWW, UE push off and one hand on walker, Min-Mod A, count to three ?? Ambulated 5 ft x 2, 8 ft x 2, 10 ft, FWW, CGA, chair follow, short steps, greater step length onL LE, setting progressive goals for pt to reach after first walk ?? Propelled w/c backwards with LE's and supervision, ~20 ft ?? Brought back to pt's room ?? Stand pivot transfer from w/c to bed, FWW and Min A ?? Pt left supine in bed with bed alarm on, all needs met, following visit. Education: Pt educated on sit <> stand mechanics, safety, PT goals, PT plan of care. Assessment: Ishan Orlando Aristides was seen today for physical therapy treatment session for continuation of POC. Motivated to work with therapy today, pt able to tolerate increased overall activity but continues to limit her gait distances due to anxiety. Variable assist required on transfers, pt reluctant to lean forward when standing. Encourage more frequent transfers, ambulation or wheelchair mobility to progress strength and activity tolerance. Pt will benefit from ongoing therapeutic interventions to achieve therapy goals. Discharge Recommendations: Based on the current findings, Anticipated Discharge Disposition (PT): [facility] facility when medically ready for hospital discharge. Consult Recommendations: No other consults recommended at this time. Equipment needs: none Anticipated Equipment Needs at Discharge (PT): to be determined Physical Therapy Goals: To be achieved by 09/24/22: Ongoing ?? 1. Pt. will demonstrate understanding of appropriate exercises and perform them independently or with family. 2. Pt. will perform bed mobility with modified independence. 3. Pt. will perform sit to stand transfers with min A using a front wheeled walker. 4. Pt. Will perform sit to stand transfers with CGA using a front wheeled walker. 5. Pt. will ambulate 10 feet with mod A using a front wheeled walker. Met 6. Pt. Will ambulate 25 with CGA using a front wheeled walker. 7. Pt. will ascend/descend step/stairs sufficient for home using rail and assist of 1 Plan: Therapy Frequency (PT): 2-4 times/wk for skilled PT rx as outlined in initial evaluation. Patient agrees with plan as stated. Time IN / OUT: 13:20- 14:05 Total Minutes, Physical Therapy: 45 Billing Code: TE-F x 3 FEROZ PORTILLO PTA Pager: [phone] Physical Therapy Inpatient Rehabilitation Department * Alicia Gillis - 09/14/2022 10:46 AM EDT Application submitted via [employer] portal 09/14/2022 Any further documentation to be given to state upon request. * Chau Keith MD - 09/14/2022 6:06 AM EDT Images from the original note were not included. Inpatient Hospital Medicine Progress Note 09/14/2022 Patient Name: ISHAN IRVING Date of : 1960 Age: 62 y.o. Hospital Admit Date: 08/14/2022 Hospital Day: 31 Inpatient Attending: Chong Chao MD PCP: Chris Stanley APRN ([phone]) ID: Ishan Irving is a 62 y.o. 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.5 years) c/b chronic pancreatitis, iron deficiency anemia, ??GERD??c/b??esophagitis &??Farrell's esophagus, who was admitted to [facility] on 08/14/2022 (now on Hospital Day #31) for mixed shock and stress cardiomyopathy who transferred to Hospital Medicine due to persistent dysphagia. 24 HOUR EVENTS & SUBJECTIVE: Yesterday: ?? Doing well with G-tube. ?? Continuing tube feeds. ?? Restarted home gabapentin at low-dose given persistent peripheral neuropathic pain. Overnight: ?? No acute events overnight. Today AM: ?? The patient reports doing well and denies any acute medical complaints. OBJECTIVE: Vitals: Last value Range last 24 hrs Temperature Temp: 36.5 ??C (97.7 ??F) Temp: [36.3 ??C (97.3 ??F)-36.8 ??C (98.2 ??F)] Heart Rate Heart Rate: 87 Heart Rate: -- Blood Pressure BP: 136/63 BP: (93-153)/(55-77) Art Line BP BP (Arterial Line): 111/70 BP (Arterial Line): -- MAP (NBP): [76 mmHg-97 mmHg] Respiratory Rate Resp: 15 Resp: [15-16] SpO2 SpO2: 95 % SpO2: [92 %-96 %] Oxygen Delivery Oxygen Therapy O2 Device: None (Room air) O2 Flow Rate (L/min): 6 L/min FiO2 (%): 21 % Reason for Oxygen: Patient currently on room air Intake/Output Summary (Last 24 hours) at 09/14/2022 0606 Last data filed at 09/14/2022 0337 Gross per 24 hour Intake 1124 ml Output 805 ml Net 319 ml I/O last 3 completed shifts: In: 1264.5 [P.O.:90; I.V.:50; NG/GT:824.5] Out: 910 [Urine:900; Blood:10] Last Bowel Movement: 09/13/22 Body mass index is 28.92 kg/m??. Patient Vitals for the past 168 hrs: Weight 09/13/22 0638 67.2 kg (148 lb 1.6 oz) 09/09/22 0354 64.5 kg (142 lb 1.6 oz) 09/08/22 0621 64.8 kg (142 lb 14.4 oz) 09/07/22 0617 64.1 kg (141 lb 5 oz) Admit wt: 69 kg Physical Exam: GENERAL: Awake, no acute distress HEENT: Anicteric, no conjunctival injection CV: RRR, no murmurs/rubs/gallops, WWP PULM: Normal respiratory effort, CTA with good air entry bilaterally, coarse bibasilar breath sounds minimal ABDOMEN: Soft, non-tender, non-distended, no masses, no guarding EXTREMITIES: No lower extremity edema. No clubbing or cyanosis PSYCH/NEURO: Intact cognition, no tremor. Intermittent soft smiles. SKIN: Warm, dry, no rashes LABS: CBC: Recent Labs 09/14/22 0333 09/13/22 0315 09/12/22 0325 09/11/22 0405 09/10/22 0920 WBC 5.5 5.2 5.3 4.5 5.7 HGB 10.1* 9.2* 9.6* 9.0* 9.2* HCT 33.7* 30.9* 32.4* 30.2* 31.4* PLATELET 246 239 241 219 229 NEUTROABS 2.69 2.31 4.22 2.39 3.39 Chemistry: Recent Labs 09/14/22 0333 09/13/22 1238 09/13/22 0315 09/12/22 1540 09/12/22 0325 NA 140 140 141 140 139 K 4.1 3.8 3.6 4.0 4.5 CL 102 101 103 102 104 CO2 28 26 29 24 26 BUN 10 8 8 7* 8 CREATININE 0.45* 0.50* 0.52* 0.53* 0.49* GLUCOSE Not Perf 115 87 103 123 ANIONGAP 10 13 9 14 9 Recent Labs 09/14/22 0333 09/13/22 1238 09/13/22 0315 09/12/22 1540 09/12/22 0325 09/11/22 0405 09/10/22 0600 CALCIUM 9.1 9.1 8.8 9.4 9.2 8.9 9.1 MAGNESIUM 0.74 -- 0.78 0.93 0.76 -- 0.67* PHOS 2.9 -- 3.0 -- 3.6 2.8 3.3 LFT's: Recent Labs 08/20/22 1400 08/15/22 0950 08/15/22 0305 BILITOT <0.2* <0.2* 0.2 BILIDIR 0.1 0.1 0.1 ALBUMIN 2.5* 2.4* 2.4* ALKPHOS 213* 102 99 ALT 20 12 13 AST 39* 21 25 Cardiac enzymes: Recent Labs 08/19/22 0120 08/14/22 2355 CK 32 -- PROBNP -- >35,000* Endocrine: Recent Labs 08/20/22 1400 08/15/22 0000 TSH 1.90 0.28 Recent Labs 08/15/22 0305 HA1C 6.2* CRP, Sed Rate Recent Labs 08/21/22 1200 CRP 19.4* SEDRATE >119* Lipids: Lab Results Component Value Date CHLPL 110 08/29/2022 HDL 34 08/29/2022 CHOLHDL 3.2 08/29/2022 TRIG 127 08/29/2022 LDLCHOL 51 08/29/2022 EKG: Lab Results Component Value Date/Time DIAGLINE 09/07/2022 0635 Normal sinus rhythm with sinus arrhythmia Low voltage QRS T wave abnormality, consider anterolateral ischemia Abnormal ECG When compared with ECG of 01-SEP-2022 02:24, No significant change was found I personally reviewed the tracing and edited the fellows interpretation Confirmed by fellow Niurka Rose ([id number]) on 09/07/2022 8:45:34 AM Confirmed by MD ALEJANDRA, RICHARD ([id number]) on 09/07/2022 1:55:43 PM QTCCALC 455 09/07/2022 0635 Microbiology: Lab Results Component Value Date/Time URINECULTURE 1,000-9,000 cfu/ml Insignificant growth 08/15/2022 1225 Lab Results Component Value Date/Time BLOODCX No growth at 5 days. 08/19/2022 1720 BLOODCX No growth at 5 days. 08/19/2022 1330 Microbiology Results (Last 30 days) Procedure Component Value Units Date/Time Lower Respiratory Culture Bronchial Alveolar Lavage [[id number]] Collected: 08/21/221649 Lab Status: Final result Specimen: Bronchial Alveolar Lavage Updated: 08/23/22 0741 Lower Respiratory Culture Rare mixed bacterial morphotypes suggestive of normal upper respiratory wiley Gram Stain -- Few Neutrophils seen No squamous epithelial cells seen No microorganisms seen. Fungus Culture & Calc Stain Bronchial Alveolar Lavage [[id number]] (Abnormal) Collected: 08/21/221649 Lab Status: Preliminary result Specimen: Bronchial Alveolar Lavage Updated: 08/24/22 145 AFB culture Bronchial Alveolar Lavage [[id number]] Collected: 08/21/221649 Lab Status: Preliminary result Specimen: Bronchial Alveolar Lavage Updated: 08/24/222218 Acid Fast Bacilli Culture -- No Acid Fast Bacilli isolated to date If active tuberculosis is suspected, the patient should be on [employer]. Call Infection Prevention for assistance if needed. Acid Fast Stain No Acid Fast Bacilli seen Fungus culture [[id number]] (Abnormal) Collected: 08/21/221649 Lab Status: Preliminary result Specimen: Bronchial Alveolar Lavage Updated: 08/24/22 145 Fungus Culture Rare Jacky albicans Calcofluor White Stain [[id number]] Collected: 08/21/221649 Lab Status: Final result Specimen: Bronchial Alveolar Lavage Updated: 08/21/22 2016 Calcofluor Stain Calcofluor White Preparation: Negative Lower Respiratory Culture Bronchial Alveolar Lavage [[id number]] Collected: 08/21/221644 Lab Status: Final result Specimen: Bronchial Alveolar Lavage Updated: 08/23/22 0741 Lower Respiratory Culture Rare mixed bacterial morphotypes suggestive of normal upper respiratory wiley Gram Stain -- Moderate Neutrophils seen No squamous epithelial cells seen No microorganisms seen. Fungus Culture & Calc Stain Bronchial Alveolar Lavage [[id number]] (Abnormal) Collected: 08/21/221644 Lab Status: Preliminary result Specimen: Bronchial Alveolar Lavage Updated: 08/24/22 145 AFB culture Bronchial Alveolar Lavage [[id number]] Collected: 04/14/23 1645 Lab Status: Preliminary result Specimen: Bronchial Alveolar Lavage Updated: 08/24/22 2221 Acid Fast Bacilli Culture -- No Acid Fast Bacilli isolated to date If active tuberculosis is suspected, the patient should be on [employer]. Call Infection Prevention for assistance if needed. Acid Fast Stain No Acid Fast Bacilli seen Fungus culture [[id number]] (Abnormal) Collected: 08/21/22 1645 Lab Status: Preliminary result Specimen: Bronchial Alveolar Lavage Updated: 08/24/22 1453 Fungus Culture Rare Ajcky albicans Calcofluor White Stain [[id number]] Collected: 08/21/22 164 Lab Status: Final result Specimen: Bronchial Alveolar Lavage Updated: 08/21/22 2017 Calcofluor Stain Calcofluor White Preparation: Negative Blood culture [[id number]] Collected: 08/19/22 1720 Lab Status: Final result Specimen: Blood Updated: 08/24/22 2301 Blood Culture No growth at 5 days. Lower Respiratory Culture Sputum Induced [[id number]] Collected: 08/19/22 1451 Lab Status: Final result Specimen: Sputum Induced Updated: 08/21/22 0948 Lower Respiratory Culture Rare mixed bacterial morphotypes suggestive of normal upper respiratory wiley Gram Stain -- Many Neutrophils seen Few squamous epithelial cells seen No microorganisms seen. Blood culture [[id number]] Collected: 08/19/22 1330 Lab Status: Final result Specimen: Blood Updated: 08/24/22 1501 Blood Culture No growth at 5 days. Legionella Urinary Antigen [[id number]] Collected: 08/18/22 1013 Lab Status: Final result Specimen: Urine Updated: 08/18/22 2252 Legionella Urinary Antigen Negative Comment: A negative Legionella Urinary Antigen by EIA suggests no recent or current infection with L. pneumophila Serogroup 1. Antigen may not be present in urine in early infection, and the level of antigen present in the urine may be below the detection limit of the test. Sensitivity: 95% Specificity 95%. Urine culture Indwelling Catheter Urine; Other; sepsis, bacteria on UA [[id number]] Collected: 08/15/22 1225 Lab Status: Final result Specimen: Indwelling Catheter Urine Updated: 08/16/22 0804 Urine Culture 1,000-9,000 cfu/ml Insignificant growth COVID-19 PCR [[id number]] Collected: 08/15/22 1150 Lab Status: Final result Specimen: Nasopharyngeal Swab Updated: 08/15/22 1501 SARS-CoV-2 RNA PCR Not Detected Comment: This result should be interpreted in combination with the clinical observations, patient history and epidemiological information. For testing of asymptomatic individuals, assay performance characteristics and clinical utility have not been evaluated. Testing for SARS-CoV-2 (Severe acute respiratory syndrome coronavirus 2, formerly known as 2019 novel coronavirus or 2019-nCoV) to aid in the diagnosis of COVID-19 is performed using the Simplexa COVID-19 Direct Assay by [employer] as authorized by the FDA issued Emergency Use Authorization (EUA). This assay is intended for In-vitro Diagnostic (IVD) use with nasopharyngeal swabs collected from individuals meeting the CDC criteria for testing. The assay is performed based on the instructions for use and additional guidance provided by the FDA. Testing is performed in the Microbiology Laboratory within the Department of Pathology and Laboratory Medicine at [facility], certified under the Clinical Laboratory Improvement Amendments of 1988 (CLIA), 42 U.S.C. section 263a, to perform high complexity tests. Assay performance has been verified according to clinical laboratory regulatory requirements. Test results are provided above. A result of Not Detected indicates that the viral RNA target is not present but does not preclude SARS-CoV-2 infection. False negative results may occur if a specimen is improperly collected, transported or handled; if amplification inhibitors are present; or if inadequate numbers of viral particles are present in the specimen. A result of Detected suggests a current or recent infection and the patient is presumed to be infected. Positive and negative predictive values for this test are highly dependent on disease prevalence. A result of Invalid indicates the inability to conclusively determine the presence or absence of SARS-CoV-2 RNA in the sample which can be due to a variety of factors. Recollection is recommended in the case of an invalid result. CDC COVID-19 criteria for testing on human specimens and clinical management guidance information are available at the CDC Coronavirus Disease 2019 (COVID-19) webpage under Information for Healthcare Professionals (https://www.cdc.gov/coronavirus/2019-ncov/hcp/index.html). Additional information about this and other EUA tests can be found in provider and patient fact sheets at the following FDA website: https://www.fda.gov/medical-devices/abftpkqdggt-qhzuifs-7036-sapvl-64-vgkijyqze- pxh-zkoizihvoashnx-qvxpwfp-devices/vvbkx-tcnjxwjqxkz-cjyi SARS-CoV-2 Source PLANT [employer]PER[employer]OR Swab Lower Respiratory Culture Sputum Induced [[id number]] Collected: 08/15/22 0740 Lab Status: Final result Specimen: Sputum Induced Updated: 08/17/22 1015 Lower Respiratory Culture Rare normal upper respiratory wiley Gram Stain -- Many Neutrophils Few squamous epithelial cells Rare mixed bacterial morphotypes suggestive of normal upper respiratory wiley Imaging/Diagnostics: Results for orders placed or performed during the hospital encounter of 08/14/22 XR Chest One View (Exam End: 08/15/2022 1:00 AM) Impression FINDINGS/IMPRESSION: * Moderate pulmonary edema. * No confluent airspace opacity otherwise seen. * Cannot exclude small pleural effusions. * Cardiomediastinal contours appear within normal limits. * Endotracheal tube tip projects 3.8 cm above the consuelo. * RIGHT neck central catheter, distal catheter coiled over the region of the RIGHT ventricle and pulmonary trunk. Thank you for letting us participate in the care of this patient. If you are a health care provider and have any questions regarding this report, please contact the number below. For patients who have questions please contact the health acute care physician that requested your imaging first. Abdomen 1 view (Generic) (Exam End: 08/15/2022 8:33 AM) Impression The enteric tube sidehole is not definitively subdiaphragmatic. Recommend advancement. Preliminary report signed by: Carlos Wolff at 08/15/2022 9:00 AM I have personally reviewed the image(s) and the resident's interpretation and agree with the findings, Liliane Adams MD at 08/15/2022 9:05 AM Thank you for letting us participate in the care of this patient. If you are a health care provider and have any questions regarding this report, please contact the number below. For patients who have questions please contact the health acute care physician that requested your imaging first. Electronically signed by: Liliane Adams MD, [facility] ([phone]), at 08/15/2022 9:05 AM XR Chest One View (Exam End: 08/15/2022 1:14 AM) Impression FINDINGS/IMPRESSION: * RIGHT neck central catheter redemonstrated terminating over the region of the pulmonary trunk, now uncoiled distally although the tip is looped. * Moderate pulmonary edema redemonstrated. * ET tube projects similar. Thank you for letting us participate in the care of this patient. If you are a health care provider and have any questions regarding this report, please contact the number below. For patients who have questions please contact the health acute care physician that requested your imaging first. Abdomen 1 view (Generic) (Exam End: 08/15/2022 6:38 AM) Impression Nonspecific/nondiagnostic appearance of the abdomen, with large stool burden in the RIGHT hemiabdomen and pelvis. Thank you for letting us participate in the care of this patient. If you are a health care provider and have any questions regarding this report, please contact the number below. For patients who have questions please contact the health acute care physician that requested your imaging first. Chest One View (Exam End: 08/16/2022 10:31 AM) Impression PA catheter has a persistent loop near the tip, similar to the prior comparison study. Improved pulmonary edema. Thank you for letting us participate in the care of this patient. If you are a health care provider and have any questions regarding this report, please contact the number below. For patients who have questions please contact the health acute care physician that requested your imaging first. Electronically signed by: Alfonso Adams MD, [facility] ([phone]), at 08/16/2022 10:[address] Head wo Contrast (Generic) (Exam End: 08/16/2022 10:44 PM) Impression No acute intracranial abnormality and no change from prior Thank you for letting us participate in the care of this patient. If you are a health care provider and have any questions regarding this report, please contact the number below. For patients who have questions please contact the health acute care physician that requested your imaging first. Electronically signed by: Moustapha Correa MD, [facility] ([phone]), at 08/16/2022 11:19 PM XR Abdomen 1 view (Generic) (Exam End: 08/17/2022 12:09 PM) Impression Status post Dobbhoff tube placement with catheter tip terminating at the approximate position of greater curvature. I have personally reviewed the image(s) and the resident's interpretation and agree with the findings, Jenn Pina MD at 08/17/2022 2:31 PM Thank you for letting us participate in the care of this patient. If you are a health care provider and have any questions regarding this report, please contact the number below. For patients who have questions please contact the health acute care physician that requested your imaging first. Head wo Contrast (Generic) (Exam End: 08/18/2022 3:14 PM) Impression No acute intracranial process. Thank you for letting us participate in the care of this patient. If you are a health care provider and have any questions regarding this report, please contact the number below. For patients who have questions please contact the health acute care physician that requested your imaging first. Electronically signed by: Antonio Jordan MD, [facility] ([phone]), at 08/18/2022 3:18 PM XR Chest One View (Exam End: 08/19/2022 12:30 PM) Impression 1. Increased bibasilar airspace opacities compared to radiograph 08/16/2022, concerning for an infectious/inflammatory process. A component of edema not excluded. 2. Overall decreased pulmonary edema. I have personally reviewed the image(s) and the resident's interpretation and agree with the findings, Alan De Guzman MD at 08/19/2022 3:14 PM Thank you for letting us participate in the care of this patient. If you are a health care provider and have any questions regarding this report, please contact the number below. For patients who have questions please contact the health acute care physician that requested your imaging first. Electronically [facility]: [facility] ([phone]), at 08/19/2022 3:14 PM MRI Brain wo Contrast (Exam End: 08/19/2022 10:15 PM) Impression No acute infarction, mass or mass effect. Thank you for letting us participate in the care of this patient. If you are a health care provider and have any questions regarding this report, please contact the number below. For patients who have questions please contact the health acute care physician that requested your imaging first. Chest for Verifying Vascular Access PICC Placement At Bedside (Exam End: 08/19/2022 4:36 PM) Impression PICC tip is in the superior vena cava above the right atrium. Thank you for letting us participate in the care of this patient. If you are a health care provider and have any questions regarding this report, please contact the number below. For patients who have questions please contact the health acute care physician that requested your imaging first. Electronically signed by: Alan De Guzman MD, [facility] ([phone]), at 08/19/2022 4:[address] Hip w Contrast Left (Exam End: 08/20/2022 11:04 PM) Impression 1. Uncomplicated left femoral neck ORIF with unchanged postoperative alignment. 2. Moderate skin thickening and subcutaneous stranding about the lateral left hip with lateral left thigh intramuscular edema and fascial thickening. These findings are nonspecific and may be seen in the routine postoperative setting. Underlying soft tissue infection with infectious or inflammatory myositis may also have this appearance. Correlation with physical examination, clinical symptoms, and laboratory findings is recommended. 3. 2.3 x 1.6 x 1.8 cm focus of more coalescent fluid attenuation centered in the subcutaneous fat of the posterolateral thigh roughly at the level of the proximal femoral fixation screw heads. There is no rim-enhancing to suggest a mature, organized abscess at this time. However, this finding could represent phlegmon in appropriate clinical context, or it could represent a postsurgical collection, the contents of which may be sterile or infected. 4. There is a rectal tube in place. However, there remains a large stool ball in the rectum with free fluid versus coalescent edema on both the anterior and posterior margins of the distended rectum. In appropriate clinical context, these findings could represent proctocolitis or stercoral colitis. I have personally reviewed the image(s) and the resident's interpretation and agree with the findings, Aicha Chowdhury MD at 08/21/2022 9:34 AM Thank you for letting us participate in the care of this patient. If you are a health care provider and have any questions regarding this report, please contact the number below. For patients who have questions please contact the health acute care physician that requested your imaging first. Electronically signed by: Aicha Chowdhury MD, [facility] ([phone]), at 08/21/2022 9:[address] Chest w Contrast (Exam End: 08/20/2022 11:04 PM) Impression 1. Multifocal lower lobe predominant consolidative opacities with additional upper lobe opacities consistent with multifocal pneumonia. Compared to the prior CT of 08/12/2022 the number and size of the opacities has decreased. Recommend follow-up imaging in 3-6 months to document complete resolution. 2. New small, sub-1 cm early cavitation of multiple opacities predominantly within the posterior left upper lobe and left lower lobe. 3. New curvilinear splenic lesions could represent infarct versus late arterial phase splenic arterial opacification. Thank you for letting us participate in the care of this patient. If you are a health care provider and have any questions regarding this report, please contact the number below. For patients who have questions please contact the health acute care physician that requested your imaging first. Hip 2-3 Views Left (Exam End: 08/22/2022 12:19 AM) Impression No radiographic evidence of infection. Thank you for letting us participate in the care of this patient. If you are a health care provider and have any questions regarding this report, please contact the number below. For patients who have questions please contact the health acute care physician that requested your imaging first. Electronically signed by: Viktor Cervantes MD, [facility] ([phone]), at 08/22/2022 12:43 PM XR Pelvis (Generic) (Exam End: 08/22/2022 12:19 AM) Impression No radiographic evidence of infection status post left hip ORIF. Thank you for letting us participate in the care of this patient. If you are a health care provider and have any questions regarding this report, please contact the number below. For patients who have questions please contact the health acute care physician that requested your imaging first. Electronically signed by: Richard Billings MD, [facility] ([phone]), at 08/22/2022 10:[address] Angiogram Coronary Arteries (Exam End: 08/27/2022 8:58 AM) Impression Coronary calcium score of 0, consistent with no detectable calcified atherosclerotic plaque burden. No evidence of stenosing soft plaque on the coronary CT arteriogram. CAD RADS 0 Ongoing bilateral pulmonary infectious/inflammatory changes with persistent consolidative opacity especially in the left lower lobe. This could represent a multifocal pneumonia. Recommend follow-up CT in 3 months to assess for resolution. Thank you for letting us participate in the care of this patient. If you are a health care provider and have any questions regarding this report, please contact the number below. For patients who have questions please contact the health acute care physician that requested your imaging first. Electronically signed by: Arlette Mays MD, [facility] ([phone]), at 08/27/2022 11:[address] Chest wo Contrast (Generic) (Exam End: 08/27/2022 8:58 AM) Impression Stable findings of multifocal pneumonia. No interval abnormality. Thank you for letting us participate in the care of this patient. If you are a health care provider and have any questions regarding this report, please contact the number below. For patients who have questions please contact the health acute care physician that requested your imaging first. Electronically signed by: MINH QUIROGA MD, [facility] ([phone]), at 08/27/2022 10:48 AM XR Fluoro Barium Swallow (Modified/Video Swallow Pharynx) (Exam End: 08/31/2022 11:23 AM) Impression Abnormal modified barium swallow as above. Please see speech pathology report for further discussion. Thank you for letting us participate in the care of this patient. If you are a health care provider and have any questions regarding this report, please contact the number below. For patients who have questions please contact the health acute care physician that requested your imaging first. Electronically signed by: Aron Billings MD, [facility] ([phone]), at 08/31/2022 12:02 PM XR Fluoro Barium Swallow (Modified/Video Swallow Pharynx) (Exam End: 09/04/2022 10:25 AM) Impression 1. Penetration of the airway and aspiration with thin liquids, especially with rapid sips of thin barium. 2. Flash penetration of nectar thick liquids from a straw. 3. Reflux of residual barium within the esophagus on multiple swallows. I have personally reviewed the image(s) and the resident's interpretation and agree with the findings, Alfonso Adams MD at 09/04/2022 10:57 AM Thank you for letting us participate in the care of this patient. If you are a health care provider and have any questions regarding this report, please contact the number below. For patients who have questions please contact the health acute care physician that requested your imaging first. Electronically signed by: Alfonso Adams MD, [facility] ([phone]), at 09/04/2022 10:57 AM XR Abdomen 1 view (Generic) (Exam End: 09/04/2022 9:47 PM) Impression 1. On the chest radiograph at 2136 hours the enteric tube projects over the mid esophagus. On the abdominal radiograph at 2139 hours the enteric tube now projects below the diaphragm with tip partially visualized projecting over the left mid abdomen. 2. Lower lobe predominant patchy and reticular airspace opacities consistent with sequela of multifocal pneumonia. The appearance is improved compared to prior radiograph. Thank you for letting us participate in the care of this patient. If you are a health care provider and have any questions regarding this report, please contact the number below. For patients who have questions please contact the health acute care physician that requested your imaging first. Chest One View (Exam End: 09/04/2022 9:47 PM) Impression 1. On the chest radiograph at 2136 hours the enteric tube projects over the mid esophagus. On the abdominal radiograph at 2139 hours the enteric tube now projects below the diaphragm with tip partially visualized projecting over the left mid abdomen. 2. Lower lobe predominant patchy and reticular airspace opacities consistent with sequela of multifocal pneumonia. The appearance is improved compared to prior radiograph. Thank you for letting us participate in the care of this patient. If you are a health care provider and have any questions regarding this report, please contact the number below. For patients who have questions please contact the health acute care physician that requested your imaging first. Chest One View (Exam End: 09/05/2022 9:24 AM) Impression 1. Reposition enteric tube now extending below the diaphragm and included [id number]. 2. Similar appearance of elevated right hemidiaphragm and linear/patchy bibasilar opacities which may represent atelectasis or possibly aspiration. Thank you for letting us participate in the care of this patient. If you are a health care provider and have any questions regarding this report, please contact the number below. For patients who have questions please contact the health acute care physician that requested your imaging first. Electronically signed by: AUDI PERDOMO MD, [facility] ([phone]), at 09/05/2022 3:43 PM XR Abdomen 1 view (Generic) (Exam End: 09/10/2022 1:04 AM) Impression Dobbhoff with tip at the level of the pyloric region. I have personally reviewed the image(s) and the resident's interpretation and agree with the findings, Camille Garcia MD at 09/10/2022 1:16 AM Thank you for letting us participate in the care of this patient. If you are a health care provider and have any questions regarding this report, please contact the number below. For patients who have questions please contact the health acute care physician that requested your imaging first. Electronically signed by: Camille Garcia MD, [facility] ([phone]), at 09/10/2022 1:16 AM Medications: Scheduled: ??? gabapentin 100 mg Oral TID ??? atorvastatin 80 mg Per G Tube QPM ??? buPROPion 100 mg Per G Tube Daily ??? [START ON 09/15/2022] ergocalciferoL (vitamin D2) 50,000 Units Per G Tube Weekly ??? ferrous sulfate 300 mg Per G Tube Every Other Day ??? folic acid 1,000 mcg Per G Tube Daily ??? melatonin 6 mg Per G Tube Nightly ??? metoprolol tartrate 12.5 mg Per G Tube 2 times per day ??? QUEtiapine 100 mg Per G Tube Nightly ??? sacubitriL-valsartan 1 tablet Per G Tube BID ??? valproic acid 300 mg Per G Tube Q6H ??? thiamine 100 mg Per G Tube Daily ??? empagliflozin 10 mg Oral Daily ??? insulin lispro 1-10 Units Subcutaneous Q4H LAZARUS ??? miconazole nitrate Topical (Top) BID ??? lidocaine 3 patch Transdermal Q24H ??? enoxaparin 40 mg Subcutaneous Daily ??? chlorhexidine 15 mL Oral BID ??? pantoprazole 40 mg Intravenous BID ??? sodium chloride 0.9 % (flush) 5 mL Intravenous BID Continuous: ??? tube feeding diet 70 mL/hr at 09/13/22 1500 PRN: acetaminophen, prochlorperazine, ondansetron, diclofenac, polyethylene glycoL, senna, bisacodyL, sodium chloride 0.9 % (flush), lidocaine, glucose 40% oral geL OR dextrose 10% OR glucagon ASSESSMENT and PLAN: Ishan Irving is a 62 y.o. 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.5 years) c/b chronic pancreatitis, iron deficiency anemia,??GE RD??c/b??esophagitis &??Farrell's esophagus, who was admitted to [facility] on 08/14/2022 (now on Hospital Day #23) for mixed shock and stress cardiomyopathy who transferred to Hospital Medicine due to persistent dysphagia. 09/14/22 Ishan continues to do well today status post G-tube placement. Will need retention increased in 7to 10 days following placement. Otherwise, the patient is medically ready for discharge pending rehab placement. Unfortunately her disposition is complicated by her insurance that lacks rehab coverage requiring detention care medicaid. Her application has been submitted. Otherwise, she is awaiting rehab placement. However, may consider home with services if the patient continues to improve and placement does not become available. Today's plan: - Continue tube feeds via G tube - Adjust insulin regimen as appropriate and monitor for refeeding syndrome - Will need retention anchors out in the next week - Consider removing PICC line # Bipolar Disorder - Continue Seroquel 100mg nightly - C/w valproate 300mg q6h - [employer] following, NPO at present - Psychiatry Consult, appreciate recs - Continue Wellbutrin IR 100mg qD as other formulations cannot be crushed # Medication-induced Parkinsonism # Dysphagia # Esophageal stricture # GERD c/b Farrell's esophagus & esophagitis - f/u with GI outpatient for severe stricture - G tube in place as of 09/11 - Continue tube feeds via G tube - Will need retention anchors out in 7-10 days # Acute hypoxic respiratory failure, resolved # Bilateral airspace opacities/multifocal pneumonia, resolved -??Respiratory support with LFNC PRN - Antibiotics: Status post zosyn for pneumonia - Fungitell and Fungal Cx positive, no change in management per ID - CT Chest showed persistent pneumonia; ID followed, patient completed course of antibioitics ?? # Distributive Shock, resolved # NSTEMI Type I vs Type II, resolved # HFrEF (EF 25%) #Stress Cardiomyopathy - Will not perform LHC given results of CTA coronary arteries - ASA 81mg - Entresto 24-26 1 tab BID - Metoprolol tartrate 12.5mg BID - Spironolactone 12.5mg QD (held starting 08/30 in setting of NPO status) - Empagliflozin 10mg as part of GDT - She will need a repeat TTE after 3 months (~11/18) - Mg >1, K >4 ?? # Constipation- resolved # Rectal wall edema 2/2 stool ball - Has Miralax, senna, dulcolax PRN ordered - Continue home pantoprazole 40 BID ?? # Insulin-dependent diabetes -??Diabetes Management consulted, appreciate recs # Mixed JERRICA and ACD - Oral iron supplementation started 08/21 > s/p 1 dose of Venofer - Ferritin, Iron, TIBC resulted; mixed picture - Transfuse for Hb <8 - S/p 1u pRBC 08/22 ?? # Septic shock # Bilateral airspace opacities/multifocal pneumonia # L Hip Fluid Collection # Subcentimeter left posterior upper lobe cavitary lesions - Infectious work-up initially did not yield any clear causative organisms - S/p BAL 08/21 without any growth to date. - IR, orthopedic surgery consulted for evaluation of L hip fluid collection. No intervention/drainable target. - Stopped zosyn as per ID (08/14- 08/23) - Fungal testing positive no change in management at this time per ID #Severe Vitamin D Deficiency #Fragility Fracture - ergocalciferol 50,000U weekly x8 weeks (to end 10/13) - calcium via tube feed - Endocrinology consult > will follow up when d/c from hospital - DXA after discharge - future anabolic agent after recovery from vitamin D deficiency #Bilateral lower extremity neuropathic pain ?? Continue gabapentin #Housekeeping: DVT PPx: LMWH GI PPx: N/a Diet: NPO diet (Give Meds) Lines: PICC Line - Double Lumen 08/19/22 1655 basilic vein (medial side of arm), right 5 Fr (Active) Number of days: 25 D/c planning: Acute rehab Code status: Attempt Cardiopulmonary Resuscitation - Inpatient Chau Keith MD Internal Medicine PGY1 Medicine Team: Jose Juan, Pager #[phone] Date: 09/14/2022 Associated attestation - Balaji Fraga MD - 09/14/2022 8:49 PM EDT Attending Attestation and Certification Please see Chau Keith MD's note for details of the patient history of presentation and data. I have discussed, reviewed and agree with the documented History, Physical findings, Assessment and Plan of care. I have examined the patient myself and personally reviewed all studies. In addition, I certify thatI am a [facility] credentialed attending provider with admitting privileges and that the patient meets or has met medical necessity to require an inpatient IPI level of care meeting a minimum of two midnights or is on the CMS inpatient only procedure list (status C) due to: the patient has met Inpatient IPI criteria and is awaiting rehabilitation or [facility] facility placement with active referrals in process * Chau Keith MD - 09/13/2022 6:09 AM EDT Images from the original note were not included. Inpatient Hospital Medicine Progress Note 09/13/2022 Patient Name: ISHAN IRVING Date of : 1960 Age: 62 y.o. Hospital Admit Date: 08/14/2022 Hospital Day: 30 Inpatient Attending: Chong Chao MD PCP: Chris Stanley APRN ([phone]) ID: Ishan Irving is a 62 y.o. 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.5 years) c/b chronic pancreatitis, iron deficiency anemia, ??GERD??c/b??esophagitis &??Farrell's esophagus, who was admitted to [facility] on 08/14/2022 (now on Hospital Day #30) for mixed shock and stress cardiomyopathy who transferred to Hospital Medicine due to persistent dysphagia. 24 HOUR EVENTS & SUBJECTIVE: Yesterday: ?? Doing well with G-tube. ?? Started tube feeds. Overnight: ?? No acute events overnight. Today AM: ?? The patient reports doing well and denies any acute medical complaints. OBJECTIVE: Vitals: Last value Range last 24 hrs Temperature Temp: 36.5 ??C (97.7 ??F) Temp: [36.5 ??C (97.7 ??F)-36.8 ??C (98.2 ??F)] Heart Rate Heart Rate: 87 Heart Rate: [87] Blood Pressure BP: 117/59 BP: (101-129)/(50-85) Art Line BP BP (Arterial Line): 111/70 BP (Arterial Line): -- MAP (NBP): [67 mmHg-100 mmHg] Respiratory Rate Resp: 18 Resp: [16-20] SpO2 SpO2: 92 % SpO2: [92 %-98 %] Oxygen Delivery Oxygen Therapy O2 Device: None (Room air) O2 Flow Rate (L/min): 6 L/min FiO2 (%): 21 % Reason for Oxygen: Patient currently on room air Intake/Output Summary (Last 24 hours) at 09/13/2022 0609 Last data filed at 09/13/2022 0300 Gross per 24 hour Intake 580.5 ml Output 710 ml Net -129.5 ml I/O last 3 completed shifts: In: 313 [I.V.:50; NG/GT:133; IV Piggyback:10] Out: 760 [Urine:750; Blood:10] Last Bowel Movement: 09/12/22 Body mass index is 27.75 kg/m??. Patient Vitals for the past 168 hrs: Weight 09/09/22 0354 64.5 kg (142 lb 1.6 oz) 09/08/22 0621 64.8 kg (142 lb 14.4 oz) 09/07/22 0617 64.1 kg (141 lb 5 oz) Admit wt: 69 kg Physical Exam: GENERAL: Awake, no acute distress HEENT: Anicteric, no conjunctival injection CV: RRR, no murmurs/rubs/gallops, WWP PULM: Normal respiratory effort, CTA with good air entry bilaterally, coarse bibasilar breath sounds minimal ABDOMEN: Soft, non-tender, non-distended, no masses, no guarding EXTREMITIES: No lower extremity edema. No clubbing or cyanosis PSYCH/NEURO: Intact cognition, no tremor. Intermittent soft smiles. SKIN: Warm, dry, no rashes LABS: CBC: Recent Labs 09/13/22 0315 09/12/22 0325 09/11/22 0405 09/10/22 0920 09/09/22 0400 WBC 5.2 5.3 4.5 5.7 6.9 HGB 9.2* 9.6* 9.0* 9.2* 9.8* HCT 30.9* 32.4* 30.2* 31.4* 33.4* PLATELET 239 241 219 229 264 NEUTROABS 2.31 4.22 2.39 3.39 3.43 Chemistry: Recent Labs 09/13/22 0315 09/12/22 1540 09/12/22 0325 09/11/22 0405 09/10/22 0600 NA 141 140 139 143 140 K 3.6 4.0 4.5 3.4* 3.7 CL 103 102 104 107 105 CO2 29 24 26 28 27 BUN 8 7* 8 6* 11 CREATININE 0.52* 0.53* 0.49* 0.44* 0.48* GLUCOSE 87 103 123 195 158 ANIONGAP 9 14 9 8 8 Recent Labs 09/13/22 0315 09/12/22 1540 09/12/22 0325 09/11/22 0405 09/10/22 0600 09/09/22 0400 CALCIUM 8.8 9.4 9.2 8.9 9.1 10.1 MAGNESIUM 0.78 0.93 0.76 -- 0.67* 0.86 PHOS 3.0 -- 3.6 2.8 3.3 4.2 LFT's: Recent Labs 08/20/22 1400 08/15/22 0950 08/15/22 0305 BILITOT <0.2* <0.2* 0.2 BILIDIR 0.1 0.1 0.1 ALBUMIN 2.5* 2.4* 2.4* ALKPHOS 213* 102 99 ALT 20 12 13 AST 39* 21 25 Cardiac enzymes: Recent Labs 08/19/22 0120 08/14/22 2355 CK 32 -- PROBNP -- >35,000* Endocrine: Recent Labs 08/20/22 1400 08/15/22 0000 TSH 1.90 0.28 Recent Labs 08/15/22 0305 HA1C 6.2* CRP, Sed Rate Recent Labs 08/21/22 1200 CRP 19.4* SEDRATE >119* Lipids: Lab Results Component Value Date CHLPL 110 08/29/2022 HDL 34 08/29/2022 CHOLHDL 3.2 08/29/2022 TRIG 127 08/29/2022 LDLCHOL 51 08/29/2022 EKG: Lab Results Component Value Date/Time DIAGLINE 09/07/2022 0635 Normal sinus rhythm with sinus arrhythmia Low voltage QRS T wave abnormality, consider anterolateral ischemia Abnormal ECG When compared with ECG of 01-SEP-2022 02:24, No significant change was found I personally reviewed the tracing and edited the fellows interpretation Confirmed by fellow Niurka Rose ([id number]) on 09/07/2022 8:45:34 AM Confirmed by MD ALEJANDRA, RICHARD ([id number]) on 09/07/2022 1:55:43 PM QTCCALC 455 09/07/2022 0635 Microbiology: Lab Results Component Value Date/Time URINECULTURE 1,000-9,000 cfu/ml Insignificant growth 08/15/2022 1225 Lab Results Component Value Date/Time BLOODCX No growth at 5 days. 08/19/2022 1720 BLOODCX No growth at 5 days. 08/19/2022 1330 BLOODCX No growth at 5 days. 08/15/2022 0110 BLOODCX No growth at 5 days. 08/14/2022 2355 Microbiology Results (Last 30 days) Procedure Component Value Units Date/Time Lower Respiratory Culture Bronchial Alveolar Lavage [[id number]] Collected: 08/21/221649 Lab Status: Final result Specimen: Bronchial Alveolar Lavage Updated: 08/23/22 0741 Lower Respiratory Culture Rare mixed bacterial morphotypes suggestive of normal upper respiratory wiley Gram Stain -- Few Neutrophils seen No squamous epithelial cells seen No microorganisms seen. Fungus Culture & Calc Stain Bronchial Alveolar Lavage [[id number]] (Abnormal) Collected: 08/21/221649 Lab Status: Preliminary result Specimen: Bronchial Alveolar Lavage Updated: 08/24/22 1452 AFB culture Bronchial Alveolar Lavage [[id number]] Collected: 08/21/221649 Lab Status: Preliminary result Specimen: Bronchial Alveolar Lavage Updated: 08/24/22 2219 Acid Fast Bacilli Culture -- No Acid Fast Bacilli isolated to date If active tuberculosis is suspected, the patient should be on [employer] PRECAUTIONS. Call Infection Prevention for assistance if needed. Acid Fast Stain No Acid Fast Bacilli seen Fungus culture [[id number]] (Abnormal) Collected: 08/21/221649 Lab Status: Preliminary result Specimen: Bronchial Alveolar Lavage Updated: 08/24/22 145 Fungus Culture Rare Jacky albicans Calcofluor White Stain [[id number]] Collected: 08/21/221649 Lab Status: Final result Specimen: Bronchial Alveolar Lavage Updated: 08/21/22 2016 Calcofluor Stain Calcofluor White Preparation: Negative Lower Respiratory Culture Bronchial Alveolar Lavage [[id number]] Collected: 08/21/22 164 Lab Status: Final result Specimen: Bronchial Alveolar Lavage Updated: 08/23/22 0741 Lower Respiratory Culture Rare mixed bacterial morphotypes suggestive of normal upper respiratory wiley Gram Stain -- Moderate Neutrophils seen No squamous epithelial cells seen No microorganisms seen. Fungus Culture & Calc Stain Bronchial Alveolar Lavage [[id number]] (Abnormal) Collected: 08/21/221644 Lab Status: Preliminary result Specimen: Bronchial Alveolar Lavage Updated: 08/24/22 145 AFB culture Bronchial Alveolar Lavage [[id number]] Collected: 08/21/221644 Lab Status: Preliminary result Specimen: Bronchial Alveolar Lavage Updated: 08/24/22 222 Acid Fast Bacilli Culture -- No Acid Fast Bacilli isolated to date If active tuberculosis is suspected, the patient should be on [employer] PRECAUTIONS. Call Infection Prevention for assistance if needed. Acid Fast Stain No Acid Fast Bacilli seen Fungus culture [[id number]] (Abnormal) Collected: 08/21/221644 Lab Status: Preliminary result Specimen: Bronchial Alveolar Lavage Updated: 08/24/22 145 Fungus Culture Rare Jacky albicans Calcofluor White Stain [[id number]] Collected: 08/21/221644 Lab Status: Final result Specimen: Bronchial Alveolar Lavage Updated: 08/21/22 2017 Calcofluor Stain Calcofluor White Preparation: Negative Blood culture [[id number]] Collected: 08/19/22 1720 Lab Status: Final result Specimen: Blood Updated: 08/24/22 2301 Blood Culture No growth at 5 days. Lower Respiratory Culture Sputum Induced [[id number]] Collected: 08/19/22 1451 Lab Status: Final result Specimen: Sputum Induced Updated: 08/21/22 0948 Lower Respiratory Culture Rare mixed bacterial morphotypes suggestive of normal upper respiratory wiley Gram Stain -- Many Neutrophils seen Few squamous epithelial cells seen No microorganisms seen. Blood culture [[id number]] Collected: 08/19/22 1330 Lab Status: Final result Specimen: Blood Updated: 08/24/22 1501 Blood Culture No growth at 5 days. Legionella Urinary Antigen [[id number]] Collected: 08/18/22 1013 Lab Status: Final result Specimen: Urine Updated: 08/18/22 2252 Legionella Urinary Antigen Negative Comment: A negative Legionella Urinary Antigen by EIA suggests no recent or current infection with L. pneumophila Serogroup 1. Antigen may not be present in urine in early infection, and the level of antigen present in the urine may be below the detection limit of the test. Sensitivity: 95% Specificity 95%. Urine culture Indwelling Catheter Urine; Other; sepsis, bacteria on UA [[id number]] Collected: 08/15/22 1225 Lab Status: Final result Specimen: Indwelling Catheter Urine Updated: 08/16/22 0804 Urine Culture 1,000-9,000 cfu/ml Insignificant growth COVID-19 PCR [[id number]] Collected: 08/15/22 1150 Lab Status: Final result Specimen: Nasopharyngeal Swab Updated: 08/15/22 1501 SARS-CoV-2 RNA PCR Not Detected Comment: This result should be interpreted in combination with the clinical observations, patient history and epidemiological information. For testing of asymptomatic individuals, assay performance characteristics and clinical utility have not been evaluated. Testing for SARS-CoV-2 (Severe acute respiratory syndrome coronavirus 2, formerly known as 2019 novel coronavirus or 2019-nCoV) to aid in the diagnosis of COVID-19 is performed using the Simplexa COVID-19 Direct Assay by [employer] as authorized by the FDA issued Emergency Use Authorization (EUA). This assay is intended for In-vitro Diagnostic (IVD) use with nasopharyngeal swabs collected from individuals meeting the CDC criteria for testing. The assay is performed based on the instructions for use and additional guidance provided by the FDA. Testing is performed in the Microbiology Laboratory within the Department of Pathology and Laboratory Medicine at [facility], certified under the Clinical Laboratory Improvement Amendments of 1988 (CLIA), 42 U.S.C. section 263a, to perform high complexity tests. Assay performance has been verified according to clinical laboratory regulatory requirements. Test results are provided above. A result of Not Detected indicates that the viral RNA target is not present but does not preclude SARS-CoV-2 infection. False negative results may occur if a specimen is improperly collected, transported or handled; if amplification inhibitors are present; or if inadequate numbers of viral particles are present in the specimen. A result of Detected suggests a current or recent infection and the patient is presumed to be infected. Positive and negative predictive values for this test are highly dependent on disease prevalence. A result of Invalid indicates the inability to conclusively determine the presence or absence of SARS-CoV-2 RNA in the sample which can be due to a variety of factors. Recollection is recommended in the case of an invalid result. CDC COVID-19 criteria for testing on human specimens and clinical management guidance information are available at the CDC Coronavirus Disease 2019 (COVID-19) webpage under Information for Healthcare Professionals (https://www.cdc.gov/coronavirus/2019-ncov/hcp/index.html). Additional information about this and other EUA tests can be found in provider and patient fact sheets at the following FDA website: https://www.fda.gov/medical-devices/ctjcpdyfzgf-fsdbrot-2927-asnyg-73-xngzuttus- tnx-yacdiidvfofgav-cqcpwpe-devices/kryms-fzogxcdyyiw-gnew SARS-CoV-2 Source PLANT SUPERVISOR Swab Lower Respiratory Culture Sputum Induced [[id number]] Collected: 08/15/22 0740 Lab Status: Final result Specimen: Sputum Induced Updated: 08/17/22 1015 Lower Respiratory Culture Rare normal upper respiratory wiley Gram Stain -- Many Neutrophils Few squamous epithelial cells Rare mixed bacterial morphotypes suggestive of normal upper respiratory wiley Blood culture [[id number]] Collected: 08/15/22 0110 Lab Status: Final result Specimen: Blood Updated: 08/20/22 0701 Blood Culture No growth at 5 days. MRSA PCR Screen ([facility]/CGP/APD/NLH) [[id number]] Collected: 08/15/22 0050 Lab Status: Final result Specimen: Nasopharyngeal Swab Updated: 08/17/22 1419 MRSA Result Negative MRSA Interp -- Methicillin-resistant Staphylococcus aureus (MRSA) is NOT DETECTED The MRSA target DNA sequences (mec and SCC) were not detected within the acceptable ranges using the Xpert MRSA NxG on the GeneXpert Dx System ([employer]). This suggests the absence of MRSA in the patient specimen submitted for testing. This test is cleared by the U.S. Food and Drug Administration for clinical use and its performance characteristics have been verified by the [facility] at [facility]. This result does not rule out the presence of any other organisms. Rare false negative results may occur if MRSA is present at low concentrations with much higher concentrations of other organisms including MRSE or S. aureus with an empty SCC cassette. Comment: [VERIFIED DATE]08.17.22 Verified By:Shannon Smiley (Electronic Signature) Blood culture [[id number]] Collected: 08/14/22 5082 Lab Status: Final result Specimen: Blood Updated: 08/20/22700 Blood Culture No growth at 5 days. Imaging/Diagnostics: Results for orders placed or performed during the hospital encounter of 08/14/22 XR Chest One View (Exam End: 08/15/2022 1:00 AM) Impression FINDINGS/IMPRESSION: * Moderate pulmonary edema. * No confluent airspace opacity otherwise seen. * Cannot exclude small pleural effusions. * Cardiomediastinal contours appear within normal limits. * Endotracheal tube tip projects 3.8 cm above the consuelo. * RIGHT neck central catheter, distal catheter coiled over the region of the RIGHT ventricle and pulmonary trunk. Thank you for letting us participate in the care of this patient. If you are a health care provider and have any questions regarding this report, please contact the number below. For patients who have questions please contact the health acute care physician that requested your imaging first. Abdomen 1 view (Generic) (Exam End: 08/15/2022 8:33 AM) Impression The enteric tube sidehole is not definitively subdiaphragmatic. Recommend advancement. Preliminary report signed by: Carlos Wolff at 08/15/2022 9:00 AM I have personally reviewed the image(s) and the resident's interpretation and agree with the findings, Liliane Adams MD at 08/15/2022 9:05 AM Thank you for letting us participate in the care of this patient. If you are a health care provider and have any questions regarding this report, please contact the number below. For patients who have questions please contact the health acute care physician that requested your imaging first. Chest One View (Exam End: 08/15/2022 1:14 AM) Impression FINDINGS/IMPRESSION: * RIGHT neck central catheter redemonstrated terminating over the region of the pulmonary trunk, now uncoiled distally although the tip is looped. * Moderate pulmonary edema redemonstrated. * ET tube projects similar. Thank you for letting us participate in the care of this patient. If you are a health care provider and have any questions regarding this report, please contact the number below. For patients who have questions please contact the health acute care physician that requested your imaging first. Abdomen 1 view (Generic) (Exam End: 08/15/2022 6:38 AM) Impression Nonspecific/nondiagnostic appearance of the abdomen, with large stool burden in the RIGHT hemiabdomen and pelvis. Thank you for letting us participate in the care of this patient. If you are a health care provider and have any questions regarding this report, please contact the number below. For patients who have questions please contact the health acute care physician that requested your imaging first. Chest One View (Exam End: 08/16/2022 10:31 AM) Impression PA catheter has a persistent loop near the tip, similar to the prior comparison study. Improved pulmonary edema. Thank you for letting us participate in the care of this patient. If you are a health care provider and have any questions regarding this report, please contact the number below. For patients who have questions please contact the health acute care physician that requested your imaging first. Electronically signed by: Alfonso Adams MD, [facility] ([phone]), at 08/16/2022 10:[address] Head wo Contrast (Generic) (Exam End: 08/16/2022 10:44 PM) Impression No acute intracranial abnormality and no change from prior Thank you for letting us participate in the care of this patient. If you are a health care provider and have any questions regarding this report, please contact the number below. For patients who have questions please contact the health acute care physician that requested your imaging first. Electronically signed by: Moustapha Correa MD, [facility] ([phone]), at 08/16/2022 11:19 PM XR Abdomen 1 view (Generic) (Exam End: 08/17/2022 12:09 PM) Impression Status post Dobbhoff tube placement with catheter tip terminating at the approximate position of greater curvature. I have personally reviewed the image(s) and the resident's interpretation and agree with the findings, Jenn Pina MD at 08/17/2022 2:31 PM Thank you for letting us participate in the care of this patient. If you are a health care provider and have any questions regarding this report, please contact the number below. For patients who have questions please contact the health acute care physician that requested your imaging first. Head wo Contrast (Generic) (Exam End: 08/18/2022 3:14 PM) Impression No acute intracranial process. Thank you for letting us participate in the care of this patient. If you are a health care provider and have any questions regarding this report, please contact the number below. For patients who have questions please contact the health acute care physician that requested your imaging first. Electronically signed by: Antonio Jordan MD, [facility] ([phone]), at 08/18/2022 3:18 PM XR Chest One View (Exam End: 08/19/2022 12:30 PM) Impression 1. Increased bibasilar airspace opacities compared to radiograph 08/16/2022, concerning for an infectious/inflammatory process. A component of edema not excluded. 2. Overall decreased pulmonary edema. I have personally reviewed the image(s) and the resident's interpretation and agree with the findings, Alan De Guzman MD at 08/19/2022 3:14 PM Thank you for letting us participate in the care of this patient. If you are a health care provider and have any questions regarding this report, please contact the number below. For patients who have questions please contact the health acute care physician that requested your imaging first. Electronically signed by: Alan De Guzman MD, [facility] ([phone]), at 08/19/2022 3:14 PM MRI Brain wo Contrast (Exam End: 08/19/2022 10:15 PM) Impression No acute infarction, mass or mass effect. Thank you for letting us participate in the care of this patient. If you are a health care provider and have any questions regarding this report, please contact the number below. For patients who have questions please contact the health acute care physician that requested your imaging first. Chest for Verifying Vascular Access PICC Placement At Bedside (Exam End: 08/19/2022 4:36 PM) Impression PICC tip is in the superior vena cava above the right atrium. Thank you for letting us participate in the care of this patient. If you are a health care provider and have any questions regarding this report, please contact the number below. For patients who have questions please contact the health acute care physician that requested your imaging first. Electronically signed by: Alan De Guzman MD, [facility] ([phone]), at 08/19/2022 4:[address] Hip w Contrast Left (Exam End: 08/20/2022 11:04 PM) Impression 1. Uncomplicated left femoral neck ORIF with unchanged postoperative alignment. 2. Moderate skin thickening and subcutaneous stranding about the lateral left hip with lateral left thigh intramuscular edema and fascial thickening. These findings are nonspecific and may be seen in the routine postoperative setting. Underlying soft tissue infection with infectious or inflammatory myositis may also have this appearance. Correlation with physical examination, clinical symptoms, and laboratory findings is recommended. 3. 2.3 x 1.6 x 1.8 cm focus of more coalescent fluid attenuation centered in the subcutaneous fat of the posterolateral thigh roughly at the level of the proximal femoral fixation screw heads. There is no rim-enhancing to suggest a mature, organized abscess at this time. However, this finding could represent phlegmon in appropriate clinical context, or it could represent a postsurgical collection, the contents of which may be sterile or infected. 4. There is a rectal tube in place. However, there remains a large stool ball in the rectum with free fluid versus coalescent edema on both the anterior and posterior margins of the distended rectum. In appropriate clinical context, these findings could represent proctocolitis or stercoral colitis. I have personally reviewed the image(s) and the resident's interpretation and agree with the findings, Aicha Chowdhury MD at 08/21/2022 9:34 AM Thank you for letting us participate in the care of this patient. If you are a health care provider and have any questions regarding this report, please contact the number below. For patients who have questions please contact the health acute care physician that requested your imaging first. Electronically signed by: Aicha Chowdhury MD, [facility] ([phone]), at 08/21/2022 9:[address] Chest w Contrast (Exam End: 08/20/2022 11:04 PM) Impression 1. Multifocal lower lobe predominant consolidative opacities with additional upper lobe opacities consistent with multifocal pneumonia. Compared to the prior CT of 08/12/2022 the number and size of the opacities has decreased. Recommend follow-up imaging in 3-6 months to document complete resolution. 2. New small, sub-1 cm early cavitation of multiple opacities predominantly within the posterior left upper lobe and left lower lobe. 3. New curvilinear splenic lesions could represent infarct versus late arterial phase splenic arterial opacification. Thank you for letting us participate in the care of this patient. If you are a health care provider and have any questions regarding this report, please contact the number below. For patients who have questions please contact the health acute care physician that requested your imaging first. Hip 2-3 Views Left (Exam End: 08/22/2022 12:19 AM) Impression No radiographic evidence of infection. Thank you for letting us participate in the care of this patient. If you are a health care provider and have any questions regarding this report, please contact the number below. For patients who have questions please contact the health acute care physician that requested your imaging first. Electronically signed by: Viktor Cervantes MD, [facility] ([phone]), at 08/22/2022 12:43 PM XR Pelvis (Generic) (Exam End: 08/22/2022 12:19 AM) Impression No radiographic evidence of infection status post left hip ORIF. Thank you for letting us participate in the care of this patient. If you are a health care provider and have any questions regarding this report, please contact the number below. For patients who have questions please contact the health acute care physician that requested your imaging first. Electronically signed by: Richard Billings MD, [facility] ([phone]), at 08/22/2022 10:[address] Angiogram Coronary Arteries (Exam End: 08/27/2022 8:58 AM) Impression Coronary calcium score of 0, consistent with no detectable calcified atherosclerotic plaque burden. No evidence of stenosing soft plaque on the coronary CT arteriogram. CAD RADS 0 Ongoing bilateral pulmonary infectious/inflammatory changes with persistent consolidative opacity especially in the left lower lobe. This could represent a multifocal pneumonia. Recommend follow-up CT in 3 months to assess for resolution. Thank you for letting us participate in the care of this patient. If you are a health care provider and have any questions regarding this report, please contact the number below. For patients who have questions please contact the health acute care physician that requested your imaging first. Electronically signed by: Arlette Mays MD, [facility] ([phone]), at 08/27/2022 11:[address] Chest wo Contrast (Generic) (Exam End: 08/27/2022 8:58 AM) Impression Stable findings of multifocal pneumonia. No interval abnormality. Thank you for letting us participate in the care of this patient. If you are a health care provider and have any questions regarding this report, please contact the number below. For patients who have questions please contact the health acute care physician that requested your imaging first. Electronically signed by: MINH QUIROGA MD, [facility] ([phone]), at 08/27/2022 10:48 AM XR Fluoro Barium Swallow (Modified/Video Swallow Pharynx) (Exam End: 08/31/2022 11:23 AM) Impression Abnormal modified barium swallow as above. Please see speech pathology report for further discussion. Thank you for letting us participate in the care of this patient. If you are a health care provider and have any questions regarding this report, please contact the number below. For patients who have questions please contact the health acute care physician that requested your imaging first. Electronically signed by: Aron Billings MD, [facility] ([phone]), at 08/31/2022 12:02 PM XR Fluoro Barium Swallow (Modified/Video Swallow Pharynx) (Exam End: 09/04/2022 10:25 AM) Impression 1. Penetration of the airway and aspiration with thin liquids, especially with rapid sips of thin barium. 2. Flash penetration of nectar thick liquids from a straw. 3. Reflux of residual barium within the esophagus on multiple swallows. I have personally reviewed the image(s) and the resident's interpretation and agree with the findings, Alfonso Adams MD at 09/04/2022 10:57 AM Thank you for letting us participate in the care of this patient. If you are a health care provider and have any questions regarding this report, please contact the number below. For patients who have questions please contact the health acute care physician that requested your imaging first. Electronically signed by: Alfonso Adams MD, [facility] ([phone]), at 09/04/2022 10:57 AM XR Abdomen 1 view (Generic) (Exam End: 09/04/2022 9:47 PM) Impression 1. On the chest radiograph at 2136 hours the enteric tube projects over the mid esophagus. On the abdominal radiograph at 2139 hours the enteric tube now projects below the diaphragm with tip partially visualized projecting over the left mid abdomen. 2. Lower lobe predominant patchy and reticular airspace opacities consistent with sequela of multifocal pneumonia. The appearance is improved compared to prior radiograph. Thank you for letting us participate in the care of this patient. If you are a health care provider and have any questions regarding this report, please contact the number below. For patients who have questions please contact the health acute care physician that requested your imaging first. Chest One View (Exam End: 09/04/2022 9:47 PM) Impression 1. On the chest radiograph at 2136 hours the enteric tube projects over the mid esophagus. On the abdominal radiograph at 2139 hours the enteric tube now projects below the diaphragm with tip partially visualized projecting over the left mid abdomen. 2. Lower lobe predominant patchy and reticular airspace opacities consistent with sequela of multifocal pneumonia. The appearance is improved compared to prior radiograph. Thank you for letting us participate in the care of this patient. If you are a health care provider and have any questions regarding this report, please contact the number below. For patients who have questions please contact the health acute care physician that requested your imaging first. Chest One View (Exam End: 09/05/2022 9:24 AM) Impression 1. Reposition enteric tube now extending below the diaphragm and included [id number]. 2. Similar appearance of elevated right hemidiaphragm and linear/patchy bibasilar opacities which may represent atelectasis or possibly aspiration. Thank you for letting us participate in the care of this patient. If you are a health care provider and have any questions regarding this report, please contact the number below. For patients who have questions please contact the health acute care physician that requested your imaging first. Electronically signed by: AUDI PERDOMO MD, [facility] ([phone]), at 09/05/2022 3:43 PM XR Abdomen 1 view (Generic) (Exam End: 09/10/2022 1:04 AM) Impression Dobbhoff with tip at the level of the pyloric region. I have personally reviewed the image(s) and the resident's interpretation and agree with the findings, Camille Garcia MD at 09/10/2022 1:16 AM Thank you for letting us participate in the care of this patient. If you are a health care provider and have any questions regarding this report, please contact the number below. For patients who have questions please contact the health acute care physician that requested your imaging first. Electronically signed by: Camille Garcia MD, [facility] ([phone]), at 09/10/2022 1:16 AM Medications: Scheduled: ??? atorvastatin 80 mg Per G Tube QPM ??? buPROPion 100 mg Per G Tube Daily ??? [START ON 09/15/2022] ergocalciferoL (vitamin D2) 50,000 Units Per G Tube Weekly ??? ferrous sulfate 300 mg Per G Tube Every Other Day ??? folic acid 1,000 mcg Per G Tube Daily ??? melatonin 6 mg Per G Tube Nightly ??? metoprolol tartrate 12.5 mg Per G Tube 2 times per day ??? QUEtiapine 100 mg Per G Tube Nightly ??? sacubitriL-valsartan 1 tablet Per G Tube BID ??? valproic acid 300 mg Per G Tube Q6H ??? thiamine 100 mg Per G Tube Daily ??? empagliflozin 10 mg Oral Daily ??? insulin lispro 1-10 Units Subcutaneous Q4H LAZARUS ??? miconazole nitrate Topical (Top) BID ??? lidocaine 3 patch Transdermal Q24H ??? enoxaparin 40 mg Subcutaneous Daily ??? chlorhexidine 15 mL Oral BID ??? pantoprazole 40 mg Intravenous BID ??? sodium chloride 0.9 % (flush) 5 mL Intravenous BID Continuous: ??? tube feeding diet Stopped (09/12/222027) PRN: acetaminophen, prochlorperazine, ondansetron, diclofenac, polyethylene glycoL, senna, bisacodyL, sodium chloride 0.9 % (flush), lidocaine, glucose 40% oral geL OR dextrose 10% OR glucagon ASSESSMENT and PLAN: Ishan Irving is a 62 y.o. 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.5 years) c/b chronic pancreatitis, iron deficiency anemia,??GE RD??c/b??esophagitis &??Farrell's esophagus, who was admitted to [facility] on 08/14/2022 (now on Hospital Day #23) for mixed shock and stress cardiomyopathy who transferred to Hospital Medicine due to persistent dysphagia. 09/13/22 Ishan continues to do well today. She has received intermittent tube feeds over the last few daysduring delays in her surgical care and was on dextrose 5% LR for a few days so I do not believe refeeding is likely. She will be medically ready after a consistent tube feed regimen is established, likely in the next 1- 2 days. Will need to additionally adjust her insulin regimen as appropriate for her tube feed regimen. 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 Her application has been submitted. Otherwise, she is awaiting rehab placement. However, may consider home with services if the patient continues to improve andplacement does not become available. Today's plan: - Continue tube feeds via G tube - Adjust insulin regimen as appropriate and monitor for refeeding syndrome - Will need retention anchors out in 7-10 days # Bipolar Disorder - Continue Seroquel 100mg nightly - C/w valproate 300mg q6h - [employer]PER[employer]OR following, NPO at present - Psychiatry Consult, appreciate recs - Continue Wellbutrin IR 100mg qD as other formulations cannot be crushed # Medication-induced Parkinsonism # Dysphagia # Esophageal stricture # GERD c/b Farrell's esophagus & esophagitis - f/u with GI outpatient for severe stricture - G tube in place as of 09/11 - Continue tube feeds via G tube - Will need retention anchors out in 7-10 days # Acute hypoxic respiratory failure, resolved # Bilateral airspace opacities/multifocal pneumonia, resolved -??Respiratory support with LFNC PRN - Antibiotics: Status post zosyn for pneumonia - Fungitell and Fungal Cx positive, no change in management per ID - CT Chest showed persistent pneumonia; ID followed, patient completed course of antibioitics ?? # Distributive Shock, resolved # NSTEMI Type I vs Type II, resolved # HFrEF (EF 25%) #Stress Cardiomyopathy - Will not perform LHC given results of CTA coronary arteries - ASA 81mg - Entresto 24-26 1 tab BID - Metoprolol tartrate 12.5mg BID - Spironolactone 12.5mg QD (held starting 08/30 in setting of NPO status) - Empagliflozin 10mg as part of GDT - She will need a repeat TTE after 3 months (~11/18) - Mg >1, K >4 ?? # Constipation- resolved # Rectal wall edema 2/2 stool ball - Has Miralax, senna, dulcolax PRN ordered - Continue home pantoprazole 40 BID ?? # Insulin-dependent diabetes -??Diabetes Management consulted, appreciate recs # Mixed JERRICA and ACD - Oral iron supplementation started 08/21 > s/p 1 dose of Venofer - Ferritin, Iron, TIBC resulted; mixed picture - Transfuse for Hb <8 - S/p 1u pRBC 08/22 ?? # Septic shock # Bilateral airspace opacities/multifocal pneumonia # L Hip Fluid Collection # Subcentimeter left posterior upper lobe cavitary lesions - Infectious work-up initially did not yield any clear causative organisms - S/p BAL 08/21 without any growth to date. - IR, orthopedic surgery consulted for evaluation of L hip fluid collection. No intervention/drainable target. - Stopped zosyn as per ID (08/14- 08/23) - Fungal testing positive no change in management at this time per ID #Severe Vitamin D Deficiency #Fragility Fracture - ergocalciferol 50,000U weekly x8 weeks (to end 10/13) - calcium via tube feed - Endocrinology consult > will follow up when d/c from hospital - DXA after discharge - future anabolic agent after recovery from vitamin D deficiency #Housekeeping: DVT PPx: LMWH GI PPx: N/a Diet: NPO diet (Give Meds) Lines: PICC Line - Double Lumen 08/19/22 1655 basilic vein (medial side of arm), right 5 Fr (Active) Number of days: 24 D/c planning: Acute rehab Code status: Attempt Cardiopulmonary Resuscitation - Inpatient Chau Keith MD Internal Medicine PGY1 Medicine Team: Jose Juan, Pager #[phone] Date: 09/13/2022 Associated attestation - Chong Chao MD - 09/13/2022 7:55 PM EDT Hospital Medicine Service Attending Documentation I certify that I am a [facility] credentialed attending provider with admitting privileges and that the patient meets or has met medical necessity to require an inpatient IPI level of care meeting a minimumof two midnights or is on the CMS inpatient only procedure list (status C) due to mixed shock, stress cardiomyopathy, aspiration pneumonia with underlying persistent dysphagia 2/2 stenosis at the Farrell esophagus site; LOS > [address] Keith's note for details of the patient history of presentation and data. I have discussed, reviewed and agree with the documented History, Physical findings, Assessment and Plan of care. I have examined the patient myself and personally reviewed all studies. Discussed plan with patient and she is in agreement. Additions to the history, physical, assessment and plan include the following: G tube placed Wednesday evening; advancing TFs. Will need retention anchors out in 7-10 days. PICC in setting difficult access; consider removing. Awaiting placement rehab; patient consider home with services if continues to improve and unable charity placed this week; consider lateralization after IDRs early this week. CHONG CHAO MD * Juliette Rizzo RN - 09/12/2022 6:40 PM EDT OUTCOME EVALUATION NOTE: OUTCOME SUMMARY: Patient A&O x4. VSS stable on RA. Meds administered per JUL via G tube. Tele discontinued.Tube feeding started at 20 ml/hr. Tolerated well.Titrated up to 30 ml/hr with goal of 90 ml/hr. CHG bath done. Hip incision dry and intact. Up in chair. PLAN MOVING FORWARD: Administer meds as ordered. Titrate tube feeding to 90ml/hr as goal rate. Vitals Q4h BG Q4h Mobility/ PT/OT INDIVIDUALIZED FALL PREVENTION INTERVENTIONS: Patient-specific fall risk factors per assessment: [current deficits]: Meds, tube feeding, generalized weakness Assistance [level of assistance required for transfers and ambulation]: 2 person assist Supervision [direct monitoring required during toileting and ADLs]: One assist Surveillance [continuous indirect monitoring]: Masimo, purposeful hourly rounding, call marshall within reach, rings appropriately Patient-specific fall prevention interventions for sensory deficits provided, if applicable: [X] N/A CPG GOAL OUTCOME EVALUATION: * Rayray Platt DO - 09/12/2022 4:05 PM EDT INTERVENTIONAL RADIOLOGY Inpatient Progress Note Admitted 08/14/2022 Procedure(s): Gastrostomy tube e placement Post-procedure day: #1 Time of patient encounter: 1600 24 Hour Events: No acute overnight events. Gastrostomy tube placed /. Minimal pain at percutaneous access site. Started tube feeds this afternoon without issue. Last Value 24 Hour Range Temperature 36.6 ??C (97.9 ??F) Temp: [36.3 ??C (97.3 ??F)-37 ??C (98.6 ??F)] Heart Rate 87 Heart Rate: [62-94] Blood Pressure 116/80 BP: (96-147)/(50-85) Respiratory Rate 18 Resp: [13-20] SpO2 98 % SpO2: [90 %-100 %] Physical Exam GEN No distress, A&O CARDS acyanotic LUNGS unlabored ABD Non tender, nondistended. Left paracentral gastrostomy tube with dressing that is clean dry andintact. Drains/Tubes: Gastrostomy tube on 20 mL/h Labs: Reviewed Assessment: 62 y.o. female history of left femoral neck fracture, bipolar, chronic pancreatitis, GERD complicated by esophagitis and Farrell's esophagus admitted with mixed shock. Dysphagia postprocedure day #1 s/p gastrostomy tube placement Plan: Gastrostomy tube functioning appropriately. -Continue to use gastrostomy tube as needed. -Gastric retention anchors to be released in 7-10 days postprocedure, this has been ordered. IR will sign off at this time. Page [phone] with questions/concerns Rayray Platt DO * Jigar Streeter MD - 09/12/2022 7:29 AM EDT Images from the original note were not included. Inpatient Hospital Medicine Progress Note 09/12/2022 Patient Name: ISHAN IRVING Date of : 1960 Age: 62 y.o. Hospital Admit Date: 08/14/2022 Hospital Day: 29 Inpatient Attending: Molina Flores MD PCP: Chris Stanley APRN ([phone]) ID: Ishan Irving is a 62 y.o. 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.5 years) c/b chronic pancreatitis, iron deficiency anemia, ??GERD??c/b??esophagitis &??Farrell's esophagus, who was admitted to [facility] on 08/14/2022 (now on Hospital Day #29) for mixed shock and stress cardiomyopathy who transferred to Hospital Medicine due to persistent dysphagia. 24 HOUR EVENTS & SUBJECTIVE: Yesterday: ?? IR placed G tube. Overnight: ?? NAONE Today AM: ?? Ishan is fatigued this morning after her procedure yesterday however is happy that the G tube is placed and the NG was removed. No other acute complaints. OBJECTIVE: Vitals: Last value Range last 24 hrs Temperature Temp: 36.5 ??C (97.7 ??F) Temp: [36.3 ??C (97.3 ??F)-37 ??C (98.6 ??F)] Heart Rate Heart Rate: 74 Heart Rate: [62-94] Blood Pressure BP: 110/58 BP: (96-154)/(50-74) Art Line BP BP (Arterial Line): 111/70 BP (Arterial Line): -- MAP (NBP): [60 mmHg-84 mmHg] Respiratory Rate Resp: 16 Resp: [13-18] SpO2 SpO2: 94 % SpO2: [90 %-100 %] Oxygen Delivery Oxygen Therapy O2 Device: None (Room air) O2 Flow Rate (L/min): 6 L/min FiO2 (%): 21 % Reason for Oxygen: Patient currently on room air Intake/Output Summary (Last 24 hours) at 09/12/2022 0729 Last data filed at 09/12/2022 0300 Gross per 24 hour Intake 10 ml Output 450 ml Net -440 ml I/O last 3 completed shifts: In: 966 [I.V.:956; IV Piggyback:10] Out: 750 [Urine:750] Last Bowel Movement: 09/11/22 Body mass index is 27.75 kg/m??. Patient Vitals for the past 168 hrs: Weight 09/09/22 0354 64.5 kg (142 lb 1.6 oz) 09/08/22 0621 64.8 kg (142 lb 14.4 oz) 09/07/22 0617 64.1 kg (141 lb 5 oz) Admit wt: 69 kg Physical Exam: GENERAL: Awake, no acute distress HEENT: Anicteric, no conjunctival injection CV: RRR, no murmurs/rubs/gallops, WWP PULM: Normal respiratory effort, CTA with good air entry bilaterally, coarse bibasilar breath sounds minimal ABDOMEN: Soft, non-tender, non-distended, no masses, no guarding EXTREMITIES: No lower extremity edema. No clubbing or cyanosis PSYCH/NEURO: Intact cognition, no tremor. Intermittent soft smiles. SKIN: Warm, dry, no rashes LABS: CBC: Recent Labs 09/12/2232409/11/22 0405 09/10/22 0920 09/09/22 0400 09/08/22 0200 WBC 5.3 4.5 5.7 6.9 6.9 HGB 9.6* 9.0* 9.2* 9.8* 9.8* HCT 32.4* 30.2* 31.4* 33.4* 32.6* PLATELET 241 219 229 264 300 NEUTROABS 4.22 2.39 3.39 3.43 3.42 Chemistry: Recent Labs 09/12/2232409/11/22 0405 09/10/22 0600 09/09/22 0400 09/08/22 0200 NA 139 143 140 140 142 K 4.5 3.4* 3.7 4.3 4.6 CL 104 107 105 102 103 CO2 26 28 27 28 30 BUN 8 6* 11 24* 25* CREATININE 0.49* 0.44* 0.48* 0.56* 0.52* GLUCOSE 123 195 158 139 142 ANIONGAP 9 8 8 10 9 Recent Labs 09/12/22 0325 09/11/22 0405 09/10/22 0600 09/09/22 0400 09/08/22 0200 09/07/22 0030 CALCIUM 9.2 8.9 9.1 10.1 10.0 9.4 MAGNESIUM 0.76 -- 0.67* 0.86 0.90 0.86 PHOS 3.6 2.8 3.3 4.2 3.2 3.0 LFT's: Recent Labs 08/20/22 1400 08/15/22 0950 08/15/22 0305 BILITOT <0.2* <0.2* 0.2 BILIDIR 0.1 0.1 0.1 ALBUMIN 2.5* 2.4* 2.4* ALKPHOS 213* 102 99 ALT 20 12 13 AST 39* 21 25 Cardiac enzymes: Recent Labs 08/19/22 0120 08/14/22 2355 CK 32 -- PROBNP -- >35,000* Endocrine: Recent Labs 08/20/22 1400 08/15/22 0000 TSH 1.90 0.28 Recent Labs 08/15/22 0305 HA1C 6.2* CRP, Sed Rate Recent Labs 08/21/22 1200 CRP 19.4* SEDRATE >119* Lipids: Lab Results Component Value Date CHLPL 110 08/29/2022 HDL 34 08/29/2022 CHOLHDL 3.2 08/29/2022 TRIG 127 08/29/2022 LDLCHOL 51 08/29/2022 EKG: Lab Results Component Value Date/Time DIAGLINE 09/07/2022 0635 Normal sinus rhythm with sinus arrhythmia Low voltage QRS T wave abnormality, consider anterolateral ischemia Abnormal ECG When compared with ECG of 01-SEP-2022 02:24, No significant change was found I personally reviewed the tracing and edited the fellows interpretation Confirmed by fellow Niurka Rose ([id number]) on 09/07/2022 8:45:34 AM Confirmed by MD ALEJANDRA, RICHARD ([id number]) on 09/07/2022 1:55:43 PM [facility]ALC 455 09/07/2022 0635 Microbiology: Lab Results Component Value Date/Time URINECULTURE 1,000-9,000 cfu/ml Insignificant growth 08/15/2022 1225 Lab Results Component Value Date/Time BLOODCX No growth at 5 days. 08/19/2022 1720 BLOODCX No growth at 5 days. 08/19/2022 1330 BLOODCX No growth at 5 days. 08/15/2022 0110 BLOODCX No growth at 5 days. 08/14/2022 2355 Microbiology Results (Last 30 days) Procedure Component Value Units Date/Time Lower Respiratory Culture Bronchial Alveolar Lavage [[id number]] Collected: 08/21/221649 Lab Status: Final result Specimen: Bronchial Alveolar Lavage Updated: 08/23/22 0741 Lower Respiratory Culture Rare mixed bacterial morphotypes suggestive of normal upper respiratory wiley Gram Stain -- Few Neutrophils seen No squamous epithelial cells seen No microorganisms seen. Fungus Culture & Calc Stain Bronchial Alveolar Lavage [[id number]] (Abnormal) Collected: 08/21/221649 Lab Status: Preliminary result Specimen: Bronchial Alveolar Lavage Updated: 08/24/22 145 AFB culture Bronchial Alveolar Lavage [[id number]] Collected: 08/21/221649 Lab Status: Preliminary result Specimen: Bronchial Alveolar Lavage Updated: 08/24/22 221 Acid Fast Bacilli Culture -- No Acid Fast Bacilli isolated to date If active tuberculosis is suspected, the patient should be on [employer] PRECA[employer]IONS. Call Infection Prevention for assistance if needed. Acid Fast Stain No Acid Fast Bacilli seen Fungus culture [[id number]] (Abnormal) Collected: 08/21/221649 Lab Status: Preliminary result Specimen: Bronchial Alveolar Lavage Updated: 08/24/22 145 Fungus Culture Rare Jacky albicans Calcofluor White Stain [[id number]] Collected: 08/21/221649 Lab Status: Final result Specimen: Bronchial Alveolar Lavage Updated: 08/21/222015 Calcofluor Stain Calcofluor White Preparation: Negative Lower Respiratory Culture Bronchial Alveolar Lavage [[id number]] Collected: 08/21/221644 Lab Status: Final result Specimen: Bronchial Alveolar Lavage Updated: 08/23/2241 Lower Respiratory Culture Rare mixed bacterial morphotypes suggestive of normal upper respiratory wiley Gram Stain -- Moderate Neutrophils seen No squamous epithelial cells seen No microorganisms seen. Fungus Culture & Calc Stain Bronchial Alveolar Lavage [[id number]] (Abnormal) Collected: 08/21/221644 Lab Status: Preliminary result Specimen: Bronchial Alveolar Lavage Updated: 08/24/22 145 AFB culture Bronchial Alveolar Lavage [[id number]] Collected: 08/21/221644 Lab Status: Preliminary result Specimen: Bronchial Alveolar Lavage Updated: 08/24/222220 Acid Fast Bacilli Culture -- No Acid Fast Bacilli isolated to date If active tuberculosis is suspected, the patient should be on [employer]CA[employer]IONS. Call Infection Prevention for assistance if needed. Acid Fast Stain No Acid Fast Bacilli seen Fungus culture [[id number]] (Abnormal) Collected: 08/21/22 1645 Lab Status: Preliminary result Specimen: Bronchial Alveolar Lavage Updated: 08/24/22 1453 Fungus Culture Rare Jacky albicans Calcofluor White Stain [[id number]] Collected: 08/21/22 164 Lab Status: Final result Specimen: Bronchial Alveolar Lavage Updated: 08/21/22 2017 Calcofluor Stain Calcofluor White Preparation: Negative Blood culture [[id number]] Collected: 08/19/22 1720 Lab Status: Final result Specimen: Blood Updated: 08/24/22 2301 Blood Culture No growth at 5 days. Lower Respiratory Culture Sputum Induced [[id number]] Collected: 08/19/22 1451 Lab Status: Final result Specimen: Sputum Induced Updated: 08/21/22 0948 Lower Respiratory Culture Rare mixed bacterial morphotypes suggestive of normal upper respiratory wiley Gram Stain -- Many Neutrophils seen Few squamous epithelial cells seen No microorganisms seen. Blood culture [[id number]] Collected: 08/19/22 1330 Lab Status: Final result Specimen: Blood Updated: 08/24/22 1501 Blood Culture No growth at 5 days. Legionella Urinary Antigen [[id number]] Collected: 08/18/22 1013 Lab Status: Final result Specimen: Urine Updated: 08/18/22 2252 Legionella Urinary Antigen Negative Comment: A negative Legionella Urinary Antigen by EIA suggests no recent or current infection with L. pneumophila Serogroup 1. Antigen may not be present in urine in early infection, and the level of antigen present in the urine may be below the detection limit of the test. Sensitivity: 95% Specificity 95%. Urine culture Indwelling Catheter Urine; Other; sepsis, bacteria on UA [[id number]] Collected: 08/15/22 1225 Lab Status: Final result Specimen: Indwelling Catheter Urine Updated: 08/16/22 0804 Urine Culture 1,000-9,000 cfu/ml Insignificant growth COVID-19 PCR [[id number]] Collected: 08/15/22 1150 Lab Status: Final result Specimen: Nasopharyngeal Swab Updated: 08/15/22 1501 SARS-CoV-2 RNA PCR Not Detected Comment: This result should be interpreted in combination with the clinical observations, patient history and epidemiological information. For testing of asymptomatic individuals, assay performance characteristics and clinical utility have not been evaluated. Testing for SARS-CoV-2 (Severe acute respiratory syndrome coronavirus 2, formerly known as 2019 novel coronavirus or 2019-nCoV) to aid in the diagnosis of COVID-19 is performed using the Simplexa COVID-19 Direct Assay by [employer] as authorized by the FDA issued Emergency Use Authorization (EUA). This assay is intended for In-vitro Diagnostic (IVD) use with nasopharyngeal swabs collected from individuals meeting the CDC criteria for testing. The assay is performed based on the instructions for use and additional guidance provided by the FDA. Testing is performed in the Microbiology Laboratory within the Department of Pathology and Laboratory Medicine at [facility], certified under the Clinical Laboratory Improvement Amendments of 1988 (CLIA), 42 U.S.C. section 263a, to perform high complexity tests. Assay performance has been verified according to clinical laboratory regulatory requirements. Test results are provided above. A result of Not Detected indicates that the viral RNA target is not present but does not preclude SARS-CoV-2 infection. False negative results may occur if a specimen is improperly collected, transported or handled; if amplification inhibitors are present; or if inadequate numbers of viral particles are present in the specimen. A result of Detected suggests a current or recent infection and the patient is presumed to be infected. Positive and negative predictive values for this test are highly dependent on disease prevalence. A result of Invalid indicates the inability to conclusively determine the presence or absence of SARS-CoV-2 RNA in the sample which can be due to a variety of factors. Recollection is recommended in the case of an invalid result. CDC COVID-19 criteria for testing on human specimens and clinical management guidance information are available at the CDC Coronavirus Disease 2019 (COVID-19) webpage under Information for Healthcare Professionals (https://www.cdc.gov/coronavirus/2019-ncov/hcp/index.html). Additional information about this and other EUA tests can be found in provider and patient fact sheets at the following FDA website: https://www.fda.gov/medical-devices/wwkdmzqiabw-ucuxyyz-9782-dencb-95-dumrbdzia- ghc-xawytwjialmccd-brxwiwt-devices/bwnil-yitxwyqqxyg-gwtb SARS-CoV-2 Source PLANT [employer]PER[employer] Swab Lower Respiratory Culture Sputum Induced [[id number]] Collected: 08/15/22 0740 Lab Status: Final result Specimen: Sputum Induced Updated: 08/17/22 1015 Lower Respiratory Culture Rare normal upper respiratory wiley Gram Stain -- Many Neutrophils Few squamous epithelial cells Rare mixed bacterial morphotypes suggestive of normal upper respiratory wiley Blood culture [[id number]] Collected: 08/15/22 0110 Lab Status: Final result Specimen: Blood Updated: 08/20/22 0701 Blood Culture No growth at 5 days. MRSA PCR Screen ([facility] [place]/CGP/APD/NLH) [[id number]] Collected: 08/15/22 0050 Lab Status: Final result Specimen: Nasopharyngeal Swab Updated: 08/17/22 1419 MRSA Result Negative MRSA Interp -- Methicillin-resistant Staphylococcus aureus (MRSA) is NOT DETECTED The MRSA target DNA sequences (mec and SCC) were not detected within the acceptable ranges using the Xpert MRSA NxG on the GeneXpert Dx System ([employer]). This suggests the absence of MRSA in the patient specimen submitted for testing. This test is cleared by the U.S. Food and Drug Administration for clinical use and its performance characteristics have been verified by the [facility] at [facility]. This result does not rule out the presence of any other organisms. Rare false negative results may occur if MRSA is present at low concentrations with much higher concentrations of other organisms including MRSE or S. aureus with an empty SCC cassette. Comment: [VERIFIED DATE]08.17.22 Verified By:Shannon Smiley (Electronic Signature) Blood culture [[id number]] Collected: 08/14/22 2355 Lab Status: Final result Specimen: Blood Updated: 08/20/22 07 Blood Culture No growth at 5 days. Imaging/Diagnostics: Results for orders placed or performed during the hospital encounter of 08/14/22 XR Chest One View (Exam End: 08/15/2022 1:00 AM) Impression FINDINGS/IMPRESSION: * Moderate pulmonary edema. * No confluent airspace opacity otherwise seen. * Cannot exclude small pleural effusions. * Cardiomediastinal contours appear within normal limits. * Endotracheal tube tip projects 3.8 cm above the consuelo. * RIGHT neck central catheter, distal catheter coiled over the region of the RIGHT ventricle and pulmonary trunk. Thank you for letting us participate in the care of this patient. If you are a health care provider and have any questions regarding this report, please contact the number below. For patients who have questions please contact the health acute care physician that requested your imaging first. Abdomen 1 view (Generic) (Exam End: 08/15/2022 8:33 AM) Impression The enteric tube sidehole is not definitively subdiaphragmatic. Recommend advancement. Preliminary report signed by: Carlos Wolff at 08/15/2022 9:00 AM I have personally reviewed the image(s) and the resident's interpretation and agree with the findings, Liliane Adams MD at 08/15/2022 9:05 AM Thank you for letting us participate in the care of this patient. If you are a health care provider and have any questions regarding this report, please contact the number below. For patients who have questions please contact the health acute care physician that requested your imaging first. Electronically signed by: Liliane Adams MD, [facility] ([phone]), at 08/15/2022 9:05 AM XR Chest One View (Exam End: 08/15/2022 1:14 AM) Impression FINDINGS/IMPRESSION: * RIGHT neck central catheter redemonstrated terminating over the region of the pulmonary trunk, now uncoiled distally although the tip is looped. * Moderate pulmonary edema redemonstrated. * ET tube projects similar. Thank you for letting us participate in the care of this patient. If you are a health care provider and have any questions regarding this report, please contact the number below. For patients who have questions please contact the health acute care physician that requested your imaging first. Abdomen 1 view (Generic) (Exam End: 08/15/2022 6:38 AM) Impression Nonspecific/nondiagnostic appearance of the abdomen, with large stool burden in the RIGHT hemiabdomen and pelvis. Thank you for letting us participate in the care of this patient. If you are a health care provider and have any questions regarding this report, please contact the number below. For patients who have questions please contact the health acute care physician that requested your imaging first. Chest One View (Exam End: 08/16/2022 10:31 AM) Impression PA catheter has a persistent loop near the tip, similar to the prior comparison study. Improved pulmonary edema. Thank you for letting us participate in the care of this patient. If you are a health care provider and have any questions regarding this report, please contact the number below. For patients who have questions please contact the health acute care physician that requested your imaging first. Electronically signed by: Alfonso Adams MD, [facility] ([phone]), at 08/16/2022 10:[address] Head wo Contrast (Generic) (Exam End: 08/16/2022 10:44 PM) Impression No acute intracranial abnormality and no change from prior Thank you for letting us participate in the care of this patient. If you are a health care provider and have any questions regarding this report, please contact the number below. For patients who have questions please contact the health acute care physician that requested your imaging first. Electronically signed by: Moustapha Correa MD, [facility] ([phone]), at 08/16/2022 11:19 PM XR Abdomen 1 view (Generic) (Exam End: 08/17/2022 12:09 PM) Impression Status post Dobbhoff tube placement with catheter tip terminating at the approximate position of greater curvature. I have personally reviewed the image(s) and the resident's interpretation and agree with the findings, Jenn Pina MD at 08/17/2022 2:31 PM Thank you for letting us participate in the care of this patient. If you are a health care provider and have any questions regarding this report, please contact the number below. For patients who have questions please contact the health acute care physician that requested your imaging first. Head wo Contrast (Generic) (Exam End: 08/18/2022 3:14 PM) Impression No acute intracranial process. Thank you for letting us participate in the care of this patient. If you are a health care provider and have any questions regarding this report, please contact the number below. For patients who have questions please contact the health acute care physician that requested your imaging first. Electronically signed by: Antonio Jordan MD, [facility] ([phone]), at 08/18/2022 3:18 PM XR Chest One View (Exam End: 08/19/2022 12:30 PM) Impression 1. Increased bibasilar airspace opacities compared to radiograph 08/16/2022, concerning for an infectious/inflammatory process. A component of edema not excluded. 2. Overall decreased pulmonary edema. I have personally reviewed the image(s) and the resident's interpretation and agree with the findings, Alan De Guzman MD at 08/19/2022 3:14 PM Thank you for letting us participate in the care of this patient. If you are a health care provider and have any questions regarding this report, please contact the number below. For patients who have questions please contact the health acute care physician that requested your imaging first. Electronically signed by: Alan De Guzman MD, [facility] ([phone]), at 08/19/2022 3:14 PM MRI Brain wo Contrast (Exam End: 08/19/2022 10:15 PM) Impression No acute infarction, mass or mass effect. Thank you for letting us participate in the care of this patient. If you are a health care provider and have any questions regarding this report, please contact the number below. For patients who have questions please contact the health acute care physician that requested your imaging first. Chest for Verifying Vascular Access PICC Placement At Bedside (Exam End: 08/19/2022 4:36 PM) Impression PICC tip is in the superior vena cava above the right atrium. Thank you for letting us participate in the care of this patient. If you are a health care provider and have any questions regarding this report, please contact the number below. For patients who have questions please contact the health acute care physician that requested your imaging first. Electronically signed by: Alan De Guzman MD, [facility] ([phone]), at 08/19/2022 4:[address] Hip w Contrast Left (Exam End: 08/20/2022 11:04 PM) Impression 1. Uncomplicated left femoral neck ORIF with unchanged postoperative alignment. 2. Moderate skin thickening and subcutaneous stranding about the lateral left hip with lateral left thigh intramuscular edema and fascial thickening. These findings are nonspecific and may be seen in the routine postoperative setting. Underlying soft tissue infection with infectious or inflammatory myositis may also have this appearance. Correlation with physical examination, clinical symptoms, and laboratory findings is recommended. 3. 2.3 x 1.6 x 1.8 cm focus of more coalescent fluid attenuation centered in the subcutaneous fat of the posterolateral thigh roughly at the level of the proximal femoral fixation screw heads. There is no rim-enhancing to suggest a mature, organized abscess at this time. However, this finding could represent phlegmon in appropriate clinical context, or it could represent a postsurgical collection, the contents of which may be sterile or infected. 4. There is a rectal tube in place. However, there remains a large stool ball in the rectum with free fluid versus coalescent edema on both the anterior and posterior margins of the distended rectum. In appropriate clinical context, these findings could represent proctocolitis or stercoral colitis. I have personally reviewed the image(s) and the resident's interpretation and agree with the findings, Aicha Chowdhury MD at 08/21/2022 9:34 AM Thank you for letting us participate in the care of this patient. If you are a health care provider and have any questions regarding this report, please contact the number below. For patients who have questions please contact the health acute care physician that requested your imaging first. Electronically signed by: Aicha Chowdhury MD, [facility] ([phone]), at 08/21/2022 9:[address] Chest w Contrast (Exam End: 08/20/2022 11:04 PM) Impression 1. Multifocal lower lobe predominant consolidative opacities with additional upper lobe opacities consistent with multifocal pneumonia. Compared to the prior CT of 08/12/2022 the number and size of the opacities has decreased. Recommend follow-up imaging in 3-6 months to document complete resolution. 2. New small, sub-1 cm early cavitation of multiple opacities predominantly within the posterior left upper lobe and left lower lobe. 3. New curvilinear splenic lesions could represent infarct versus late arterial phase splenic arterial opacification. Thank you for letting us participate in the care of this patient. If you are a health care provider and have any questions regarding this report, please contact the number below. For patients who have questions please contact the health acute care physician that requested your imaging first. Hip 2-3 Views Left (Exam End: 08/22/2022 12:19 AM) Impression No radiographic evidence of infection. Thank you for letting us participate in the care of this patient. If you are a health care provider and have any questions regarding this report, please contact the number below. For patients who have questions please contact the health acute care physician that requested your imaging first. Electronically signed by: Viktor Cervantes MD, [facility] ([phone]), at 08/22/2022 12:43 PM XR Pelvis (Generic) (Exam End: 08/22/2022 12:19 AM) Impression No radiographic evidence of infection status post left hip ORIF. Thank you for letting us participate in the care of this patient. If you are a health care provider and have any questions regarding this report, please contact the number below. For patients who have questions please contact the health acute care physician that requested your imaging first. Electronically signed by: Richard Billings MD, [facility] ([phone]), at 08/22/2022 10:[address] Angiogram Coronary Arteries (Exam End: 08/27/2022 8:58 AM) Impression Coronary calcium score of 0, consistent with no detectable calcified atherosclerotic plaque burden. No evidence of stenosing soft plaque on the coronary CT arteriogram. CAD RADS 0 Ongoing bilateral pulmonary infectious/inflammatory changes with persistent consolidative opacity especially in the left lower lobe. This could represent a multifocal pneumonia. Recommend follow-up CT in 3 months to assess for resolution. Thank you for letting us participate in the care of this patient. If you are a health care provider and have any questions regarding this report, please contact the number below. For patients who have questions please contact the health acute care physician that requested your imaging first. Electronically signed by: Arlette Mays MD, [facility] ([phone]), at 08/27/2022 11:[address] Chest wo Contrast (Generic) (Exam End: 08/27/2022 8:58 AM) Impression Stable findings of multifocal pneumonia. No interval abnormality. Thank you for letting us participate in the care of this patient. If you are a health care provider and have any questions regarding this report, please contact the number below. For patients who have questions please contact the health acute care physician that requested your imaging first. Electronically signed by: MINH QUIROGA MD, [facility] ([phone]), at 08/27/2022 10:48 AM XR Fluoro Barium Swallow (Modified/Video Swallow Pharynx) (Exam End: 08/31/2022 11:23 AM) Impression Abnormal modified barium swallow as above. Please see speech pathology report for further discussion. Thank you for letting us participate in the care of this patient. If you are a health care provider and have any questions regarding this report, please contact the number below. For patients who have questions please contact the health acute care physician that requested your imaging first. Electronically signed by: Aron Billings MD, [facility] ([phone]), at 08/31/2022 12:02 PM XR Fluoro Barium Swallow (Modified/Video Swallow Pharynx) (Exam End: 09/04/2022 10:25 AM) Impression 1. Penetration of the airway and aspiration with thin liquids, especially with rapid sips of thin barium. 2. Flash penetration of nectar thick liquids from a straw. 3. Reflux of residual barium within the esophagus on multiple swallows. I have personally reviewed the image(s) and the resident's interpretation and agree with the findings, Alfonso Adams MD at 09/04/2022 10:57 AM Thank you for letting us participate in the care of this patient. If you are a health care provider and have any questions regarding this report, please contact the number below. For patients who have questions please contact the health acute care physician that requested your imaging first. Electronically signed by: Alfonso Adams MD, [facility] ([phone]), at 09/04/2022 10:57 AM XR Abdomen 1 view (Generic) (Exam End: 09/04/2022 9:47 PM) Impression 1. On the chest radiograph at 2136 hours the enteric tube projects over the mid esophagus. On the abdominal radiograph at 2139 hours the enteric tube now projects below the diaphragm with tip partially visualized projecting over the left mid abdomen. 2. Lower lobe predominant patchy and reticular airspace opacities consistent with sequela of multifocal pneumonia. The appearance is improved compared to prior radiograph. Thank you for letting us participate in the care of this patient. If you are a health care provider and have any questions regarding this report, please contact the number below. For patients who have questions please contact the health acute care physician that requested your imaging first. Chest One View (Exam End: 09/04/2022 9:47 PM) Impression 1. On the chest radiograph at 2136 hours the enteric tube projects over the mid esophagus. On the abdominal radiograph at 2139 hours the enteric tube now projects below the diaphragm with tip partially visualized projecting over the left mid abdomen. 2. Lower lobe predominant patchy and reticular airspace opacities consistent with sequela of multifocal pneumonia. The appearance is improved compared to prior radiograph. Thank you for letting us participate in the care of this patient. If you are a health care provider and have any questions regarding this report, please contact the number below. For patients who have questions please contact the health acute care physician that requested your imaging first. Chest One View (Exam End: 09/05/2022 9:24 AM) Impression 1. Reposition enteric tube now extending below the diaphragm and included [id number]. 2. Similar appearance of elevated right hemidiaphragm and linear/patchy bibasilar opacities which may represent atelectasis or possibly aspiration. Thank you for letting us participate in the care of this patient. If you are a health care provider and have any questions regarding this report, please contact the number below. For patients who have questions please contact the health acute care physician that requested your imaging first. Electronically signed by: AUDI PERDOMO MD, [facility] ([phone]), at 09/05/2022 3:43 PM XR Abdomen 1 view (Generic) (Exam End: 09/10/2022 1:04 AM) Impression Dobbhoff with tip at the level of the pyloric region. I have personally reviewed the image(s) and the resident's interpretation and agree with the findings, Camille Garcia MD at 09/10/2022 1:16 AM Thank you for letting us participate in the care of this patient. If you are a health care provider and have any questions regarding this report, please contact the number below. For patients who have questions please contact the health acute care physician that requested your imaging first. Electronically signed by: Camille Garcia MD, [facility] ([phone]), at 09/10/2022 1:16 AM Medications: Scheduled: ??? atorvastatin 80 mg Per G Tube QPM ??? buPROPion 100 mg Per G Tube Daily ??? [START ON 09/15/2022] ergocalciferoL (vitamin D2) 50,000 Units Per G Tube Weekly ??? ferrous sulfate 300 mg Per G Tube Every Other Day ??? folic acid 1,000 mcg Per G Tube Daily ??? melatonin 6 mg Per G Tube Nightly ??? metoprolol tartrate 12.5 mg Per G Tube 2 times per day ??? QUEtiapine 100 mg Per G Tube Nightly ??? sacubitriL-valsartan 1 tablet Per G Tube BID ??? valproic acid 300 mg Per G Tube Q6H ??? magnesium sulfate 2 g Intravenous Once ??? empagliflozin 10 mg Oral Daily ??? insulin lispro 1-10 Units Subcutaneous Q4H LAZARUS ??? miconazole nitrate Topical (Top) BID ??? lidocaine 3 patch Transdermal Q24H ??? enoxaparin 40 mg Subcutaneous Daily ??? chlorhexidine 15 mL Oral BID ??? pantoprazole 40 mg Intravenous BID ??? sodium chloride 0.9 % (flush) 5 mL Intravenous BID ??? thiamine 100 mg Intravenous Daily Continuous: ??? tube feeding diet Stopped (09/08/222025) PRN: acetaminophen, prochlorperazine, ondansetron, diclofenac, polyethylene glycoL, senna, bisacodyL, sodium chloride 0.9 % (flush), lidocaine, glucose 40% oral geL OR dextrose 10% OR glucagon ASSESSMENT and PLAN: Ishan Irving is a 62 y.o. 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.5 years) c/b chronic pancreatitis, iron deficiency anemia,??GE RD??c/b??esophagitis &??Farrell's esophagus, who was admitted to [facility] on 08/14/2022 (now on Hospital Day #23) for mixed shock and stress cardiomyopathy who transferred to Hospital Medicine due to persistent dysphagia. 09/12/22 Ishan continues to do well today; she and her are very happy that her G tube is in place now. Will switch all meds to the G tube and begin tube feeds. She has received intermittent tube feeds over the last few days during delays in her surgical care and was on dextrose 5% LR for a few days so I do not believe refeeding is likely. Nonetheless will recheck lytes later this afternoon after feeds via the G tube are initiated. She will be medically ready after a consistent tube feed regimen is established, likely in the next 1-2 days. Will need to additionally adjust her insulin regimen as appropriate for her tube feed regimen. 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 Her application has been submitted. Today's plan: - restart tube feeds via G tube - transition medications to G tube - adjust insulin regimen as appropriate and monitor for refeeding syndrome # Bipolar Disorder - Continue Seroquel 100mg nightly - C/w valproate 300mg q6h - GAS STATION SUPERVISOR following, NPO at present - Psychiatry Consult, appreciate recs - Continue Wellbutrin IR 100mg qD as other formulations cannot be crushed # Medication-induced Parkinsonism # Dysphagia # Esophageal stricture # GERD c/b Farrell's esophagus & esophagitis - f/u with GI outpatient for severe stricture - G tube in place as of 09/11 # Acute hypoxic respiratory failure, resolved # Bilateral airspace opacities/multifocal pneumonia, resolved -??Respiratory support with LFNC PRN - Antibiotics: Status post zosyn for pneumonia - Fungitell and Fungal Cx positive, no change in management per ID - CT Chest showed persistent pneumonia; ID followed, patient completed course of antibioitics ?? # Distributive Shock, resolved # NSTEMI Type I vs Type II, resolved # HFrEF (EF 25%) #Stress Cardiomyopathy - Will not perform LHC given results of CTA coronary arteries - ASA 81mg - Entresto 24-26 1 tab BID - Metoprolol tartrate 12.5mg BID - Spironolactone 12.5mg QD (held starting 08/30 in setting of NPO status) - Empagliflozin 10mg as part of GDT - She will need a repeat TTE after 3 months (~11/18) - Mg >1, K >4 ?? # Constipation- resolved # Rectal wall edema 2/2 stool ball - Has Miralax, senna, dulcolax PRN ordered - Continue home pantoprazole 40 BID ?? # Insulin-dependent diabetes -??Diabetes Management consulted, appreciate recs # Mixed JERRICA and ACD - Oral iron supplementation started 08/21 > s/p 1 dose of Venofer - Ferritin, Iron, TIBC resulted; mixed picture - Transfuse for Hb <8 - S/p 1u pRBC 08/22 ?? # Septic shock # Bilateral airspace opacities/multifocal pneumonia # L Hip Fluid Collection # Subcentimeter left posterior upper lobe cavitary lesions - Infectious work-up initially did not yield any clear causative organisms - S/p BAL 08/21 without any growth to date. - IR, orthopedic surgery consulted for evaluation of L hip fluid collection. No intervention/drainable target. - Stopped zosyn as per ID (08/14- 08/23) - Fungal testing positive no change in management at this time per ID #Severe Vitamin D Deficiency #Fragility Fracture - ergocalciferol 50,000U weekly x8 weeks (to end 10/13) - calcium via tube feed - Endocrinology consult > will follow up when d/c from hospital - DXA after discharge - future anabolic agent after recovery from vitamin D deficiency #Housekeeping: DVT PPx: LMWH GI PPx: N/a Diet: NPO diet (Give Meds) Lines: PICC Line - Double Lumen 08/19/22 1655 basilic vein (medial side of arm), right 5 Fr (Active) Number of days: 23 D/c planning: Acute rehab Code status: Attempt Cardiopulmonary Resuscitation - Inpatient Jigar Streeter MD Internal Medicine PGY2 Medicine Team: Jose Juan, Pager #[phone] Date: 09/12/2022 Associated attestation - Chong Chao MD - 09/12/2022 9:10 PM EDT Hospital Medicine Service Attending Documentation I certify that I am a D-H credentialed attending provider with admitting privileges and that the patient meets or has met medical necessity to require an inpatient IPI level of care meeting a minimumof two midnights or is on the [facility] inpatient only procedure list (status C) due to mixed shock, stress cardiomyopathy, aspiration pneumonia with underlying persistent dysphagia 2/2 stenosis at the Farrell esophagus site; LOS > [address] Streeter's note for details of the patient history of presentation and data. I have discussed, reviewed and agree with the documented History, Physical findings, Assessment and Plan of care. I have examined the patient myself and personally reviewed all studies. Discussed plan with patient and she is in agreement. Additions to the history, physical, assessment and plan include the following: G tube placed yesterday evening; advancing TFs. Will need retention anchors out in 7-10 days. Awaiting placement rehab; patient consider home with services if continues to improve and unable charity placed this week; consider lateralization after IDRs early this week. CHONG CHAO MD * AnnmarieRosie RN - 09/12/2022 1:54 AM EDT OUTCOME EVALUATION NOTE: ?? OUTCOME SUMMARY: A/O x4 with flat affect, VSS on RA. Tele maintained. G tube inserted today, gauze covered - C/D/I, no drainage. C/o pain in L hip, PRN Tylenol given through G tube. Tube feeding held but meds only via G tube per MD order. Bilat UE tremors. BG obtained Q4, insulin given per JUL. Incision in L greater trochanter, open to air with steri-strips - no drainage, no redness, CDI. External cath maintained, incontinence care provided (see Flowsheets). 2A with walker. Assessment as filed. Safety maintained. Will continue to monitor. ?? PLAN MOVING FORWARD: ?? G tube Tele VS Q4h BG Q4h NPO - hold tube feeding per MD order Pain mgmt PT/OT ?? INDIVIDUALIZED FALL PREVENTION INTERVENTIONS: Bed alarm set, wheels locked and bed in lowest position, side rails up x3, call marshall/personal itemswithin reach, purposeful hourly rounding, room near nurse's station ?? Patient-specific fall risk factors per assessment: [current deficits]: Generalized weakness, medication, O2 tubing ?? Assistance [level of assistance required for transfers and ambulation]: 2A w/ walker ?? Supervision [direct monitoring required during toileting and ADLs]: Hands-on, eyes-on ?? Surveillance [continuous indirect monitoring]: Tele, Masimo ?? Patient-specific fall prevention interventions for sensory deficits provided, if applicable: [X] N/A ? CPG GOAL OUTCOME EVALUATION: ? * Wilda Blankenship RD - 09/11/2022 3:12 PM EDT Nutrition Brief Note Ishan Irving??is a 62 y.o.??female??with h/o bipolar, DM, EtOH, esophagitis, who presented to [facility] 3 days ago after being found unresponsive at home.?Patient found to have likely pneumonia+/- aspiration, newly reduced EF. Reason for intervention: Follow up Nutrition Recommendations: ?? S/p PEG placement, resume current TF: Cyclic Peptamen AF??at 90ml/hr for 14 hrs from [id number] (pended). At goal, this will provide: Peptamen AF Total Volume Per Day: 1260 mL Scoops of Protein: 0 Calories per Day: 1512 Protein per Day: 96 g Free Water mL per Day: 1023 % RDI: 101 % Monitor hydration status on above TFs as they are concentrated. Pt may need additional fluids depending on IVFs, med flushes, p.o. Intake, etc. ?? Po diet per GAS STATION SUPERVISOR (recs 09/04 NPO s/p MBS) ?? Continue 50,000 units vitamin D weekly; 1000 mcg folic acid and 100 mg thiamine daily. ?? Off unit in IR for PEG placement at time of my visit. THANKS Wilda Blankenship RD Pager #:[phone] * Mary Penny RN - 09/11/2022 1:35 PM EDT Called to see Ishan Irving who is a 62 y.o., female by nursing machine shop supervisor RM at the requestof charge nurse on unit. Referring provider: Chau Keith MD Date of Referral: 09/10 (unable to get done 09/10 therefore done 09/11) for a small bore insertion team consult. Admission Date/Time: 08/14/22 Hospital Day:28 Admitting Diagnosis:shock, multifocal pneumonia, and a newly reduced LVEF. Ordering Physician: Chau Keith MD Indication:Tube feeding, director medical safety Weighted or Not Weighted: weighted Ordered destination: stomach Attempted placement to Left nare. Patient experienced pain and started repeatedly saying Stop stop, then was gagging and spitting out moderate amount of saliva at 10cm. During this time Masimo monitor heart rate alarming for 220 and radial pulse pulse feeling rapid, denied chest pain, sob, skin warm and dry. Tube removed, placed on bedside monitor heart rate was NSR 90-98.(Vitals filed in EDH see doc flow for full set). Primary nurse notified provider and at this time DHT will not be attempted-pt is possibly going to IR for G-tube later today as this was the plan even prior to attempting DHT however team wanted DHT in the event she did not go to IR. Encouraged primary nurse to notify [employer] regarding bedside events however at time of leaving room pt alert, oriented, speaking full sentences and reports no further discomfort from DHT attempt. * Alicia Gillis - 09/11/2022 11:10 AM EDTSumemanuely: Senior Living Care Medicaid [place] Contract Sheltered Workshop Supervisor Care application (Form 202LTC) completed on 09/11/2022 Authorized Injector Assembler Form (Form 139REP) completed and designated to Antonio Irving and Alicia Gillis Copy made of all application documents. Statement of Understand for Choices for Care Senior Living Medicaid provided to patient/family. Submitted all documents to [place] DCF/ESD Application and Document Processing Center via [place]'s [employer] pte Uploader on 09/11/2022 for submission and processing. Anticipated Timeline: ??? LTC application should be acknowledged by [place]'s Department [facility] Access and Disabilities, Aging and Independent Living ([facility]) within 1-10 business days dependent on method of the application's submission. ??? Then, the [place] manufacturers representative aka [facility] RN assigned will contact [facility] to request clinicaldocumentation to submit to them for the clinical assessment they will complete. ??? The results from the clinical assessment by the [facility] RN assigned will be forwarded to the [facility] Financial Embedded Linux Developer (FBS) assigned to conduct the application intake process with date & time for the mandatory Phone Eligibility Interview. ??? Next, the FBS will conduct the intake interview with the applicant or applicant's Authorized Injector Assembler and generate a list of proofs or verifications required for [facility] to move through the application process for a Notice of Decision. These proofs are due within 14 days of the Phone Eligibility Interview date, with a second verification request to follow for an additional 14 days post thefirst due date. ??? After, the FBS will need to review and potentially request additional proofs before the applicant can have a final review for financial clearance. ??? Notice of Decisions are presented when the applicant's application is financially and medicallycleared by [facility] at the time the applicant has been discharged from [facility] for which outcomes can vary between 1 to 4 months based on individual case complexities. * Alicia Glez, DANIELA - 09/11/2022 10:50 AM EDT Occupational Therapy Treatment Note Treatment Number OT: 5 Patient Dx: Ishan Irving??is a 62 y.o.??female??admitted on 08/14/2022??with a medical history notable for??recent L femoral neck fracture,??bipolar disorder, resolving medication-induced Parkinsonism, insulin- dependent diabetes mellitus,??hx of alcohol use disorder (reported to be in remission for 1.5 years) c/b chronic pancreatitis, iron deficiency anemia,??GERD??c/b??esophagitis &??Farrell's esophagus??presenting in transfer from [facility], suspected to be in cardiogenic shock and foundto be in mixed shock with concern for stress cardiomyopathy.??She is s/p ORIF left femoral neck frac ture. ?? Precautions/Special Considerations: aspiration, skin breakdown, falls, LLE WBAT, Dobhoff tube, Mcrae Interval History: 09/11 pr MD BIRD, J-G tube pending, Yesterday: ??? Surgery could not place PEG tube due to esophageal stricture; recommended G- J tube to allow venting due to degree of stricture. Consulted IR for placement. ??? Unable to replace Dobbhoff tube due to scheduling. Overnight: ??? Night team paged around 10 PM for insomnia so they gave 10 mg of IV Benadryl. ??? Paged again around 3 AM for left hip pain, patient was given IV morphine.Today AM: Patient denies having any acute medical complaints. However, she reports being frustrated with waiting for Dobbhoff tube placement as well as GJ tube placement r stress cardiomyopathy.??She is s/p ORIF left femoral neck fracture. S: My left leg is numb its hard to walk O: Patient seen for skilled OT treatment, and demonstrated the following: MT assisting with pt mobility Self care & functional mobility: ?? Diet:??NPO, May offer individual ice chips for pleasure / practice as per MD ?? Pt is coughing up large amounts of clear liquids ?? Pt in bed upon OT arrival. ?? Supine to sit at EOB independently using railings for self-assist ?? Pt was unable to stand on first attempt to stand from bed ?? Sit to stand with Mod A x 2 with FWW required bed to be elevated for assist. ?? Pt and spouse education on visually scanning and knowing where her L PAVAN is during mobilizing ?? Pt requires multimodal cues for safety with reaching back for chair arm rest and making sure sheis aligned with chair prior to sitting ?? Pt stood with Min/mod A x 2 with FWW and took 4 steps requesting to sit VC for reaching for armrest prior to sittings Pt participated in a total of 4 short distance 4 ft, 5 ft, 3 ft 2 ft 1 foot. mobilizing in room with FWW and CGA with assist with chair follow and IV pole management ?? Pt requiring Mod A and encouragement to engage at times ?? Bathing: seated in chair with set up and extra time UB ?? Dressing: CGA with doffing/donning due to lines and equipment management pt deferring pant due to pain in hip ?? Grooming: set up assist for oral care seated in chair ?? Pt left with hair brush and de tangle spray to work on brushing her hair out ?? Pt provided with warm blanket, chair alar, call marshall and needs met nurse present upon exit ?? Cognition: ?? Behavior / Mood: alert, cooperative and flat affect, anxious prior and during transfer, tearful,admits to feeling discouraged by upcoming PEG placement ?? Alert and oriented to: person, place, time and situation ?? Follows commands: 1 step and 100% of the time, does not attend to cues when anxious ?? Attention: WFL ?? Safety awareness: mild impairment ?? Vision: Glasses have been brought in by spouse; wears corrective lenses at all times ?? Endurance: Poor. Fatigues quickly ?? Vitals: Spo2 97%, HR 125-140, BP 146/87 Pain: 01/17 Education: Pt/family/caregiver education ongoing regarding: Role of occupational therapy/rehabilitation, Transfers, Assistive device/technique, ADL, Exercise, Breathing exercises, Positioning, Safety, Precautions/Protocol, Functional Mobility, Activity pacing/Energy conservation and Balance. Staff Communication: Patient status, treatment, and mobility recommendations discussed with nursing/other staff. Please assist pt to commode for toileting during the day to increase functional mobility, strength and activity tolerance. ASSESSMENT: Pt seen for continuation of therapy POC. Upon supine to sit pt requesting assistance totransition to EOB. Pt was able to perform this task with extra tome and encouragement. Pt is able to weight shift to EOB and place feet on floor. Pt was able to participate in mobilizing with FWW in her room from opposite side of bed to almost the doorway of her room ~ 15ft with x4 seated rest. Pt continues to be anxious with mobilizing and requires multimodal cues for safety awareness, limb placement in chair arm rest prior to descending. Pt continue to sit prematurely requiring CGA for safety. Pt continues to be anxious with mobilizing. Pt requires mod A x2 for sit to stand and more assist as she fatigues with close chair follow. Due to patients current presentation she remains a high fall risk. Pt will benefit from commode use for toileting during the day vs pur wick to increase functional mobility, strength and activity tolerance. Recommended discharge to SNF to improve functional mobility and safety. Pt will benefit from ongoing therapeutic interventions to achieve therapy goals. ?? Equipment needs at discharge: to be determined Anticipated Discharge Disposition: acute rehabilitation facility Daily schedule / Staff Recommendations: ? ? Encourage use of coping & calming strategies ??? Give choices when possible to support feelings of autonomy ? ? Frequent orientation verbally & visually with calendars/clocks/whiteboard ? ? Keep glasses, hearing aides, etc within reach & offer to pt as appropriate ??? Facilitate a normal sleep-wake cycle ??? Provide brief, clear instruction and direction from one source at a time ??? Provide calming music, favorite TV programs, magazines or newspapers ??? Utilize upright chair position using bed features or transfer to recliner chair as appropriate ??? Encourage participation in ADL's by providing set up A on tray table and physical assist only as needed ??? Please assist pt to commode for toileting during the day to increase functional mobility, strength and activity tolerance. ??? Encourage OOB daily Occupational Therapy Goals: to be reached by 09/23/22 -Patient will complete toileting tasks (hygiene, clothing management, transfers)??with Mod A and??with AE, as needed -Patient will ambulate household distances??with Mod A and??with AD, as needed -Patient will complete UB/LB sponge bathing tasks??with Min A, while seated with AE, as needed (only UB bathing) Patient will complete grooming task (comb hair, brush teeth)??with supervision, seated EOB??(in supported sitting) Therapy Frequency (OT): 2-4 times/wk Total Minutes, Occupational Therapy: 48 (x2 schm, x1 thera act [id number]) Pager: [phone] DANIELA Montes 09/11/2022 Occupational Therapy Rehabilitation Department * Briana Bryant, GAS STATION SUPERVISOR - 09/11/2022 10:13 AM EDT Speech-Language Pathology Consult Note Ishan Irving is a 62 year old female with a medical history notable for??recent L femoral neck fracture,??bipolar disorder, resolving medication- induced Parkinsonism, insulin-dependent diabetesmellitus,??hx of alcohol use disorder (reported to be in remission for 1.5 years) c/b chronic pancreatitis, iron deficiency anemia,??GERD??c/b??esophagitis &??Farrell's esophagus??presenting in transfer from [facility]??on 08/14/2022, suspected to be in cardiogenic shock and found to be in mixed shock with concern for stress cardiomyopathy.??GAS STATION SUPERVISOR following for swallow, cognitive tx. MBS completed 08/31/22 noting moderate-severe oropharyngeal dysphagia. Strong clinical s/s esophageal dysphagia. As per today's Medicine Note: 24 HOUR EVENTS & SUBJECTIVE: Yesterday: ??? Surgery could not place PEG tube due to esophageal stricture; recommended G- J tube to allow venting due to degree of stricture. Consulted IR for placement. ??? Unable to replace Dobbhoff tube due to scheduling. Overnight: ??? Night team paged around 10 PM for insomnia so they gave 10 mg of IV Benadryl. ??? Paged again around 3 AM for left hip pain, patient was given IV morphine. Today AM: ??? Patient denies having any acute medical complaints. However, she reports being frustrated with waiting for Dobbhoff tube placement as well as GJ tube placement. GAS STATION SUPERVISOR team has been following pt for dysphagia in ICU. Transferred to floor on 09/07/22. GAS STATION SUPERVISOR have been unable to work w/ Pt on PO trials due to NPO for potential PEG, and now GJ tube. Was cleared to takesmall amounts of ice chips yesterday, pt seen, however had emesis episode w/ ice chips at that time. RN states pt NPO for potential surgery again today, DHT to be replaced for medication passes in mean time as per RN.. GAS STATION SUPERVISOR team will continue to monitor. Briana Bryant MA [facility]-GAS STATION SUPERVISOR Inpatient Rehabilitation Medicine pager:# [phone] * Chau Keith MD - 09/11/2022 6:15 AM EDT Images from the original note were not included. Inpatient Hospital Medicine Progress Note 09/11/2022 Patient Name: ISHAN IRVING Date of : 1960 Age: 62 y.o. Hospital Admit Date: 08/14/2022 Hospital Day: 28 Inpatient Attending: Molina Flores MD PCP: Chris Stanley APRN ([phone]) ID: Ishan Irving is a 62 y.o. 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.5 years) c/b chronic pancreatitis, iron deficiency anemia, ??GERD??c/b??esophagitis &??Farrell's esophagus, who [facility] [facility] [place] [facility] (now on Hospital Day #28) for mixed shock and stress cardiomyopathy who transferred to Hospital Medicine due to persistent dysphagia. 24 HOUR EVENTS & SUBJECTIVE: Yesterday: ?? Surgery could not place PEG tube due to esophageal stricture; recommended G-J tube to allow venting due to degree of stricture. Consulted IR for placement. ?? Unable to replace Dobbhoff tube due to scheduling. Overnight: ?? Night team paged around 10 PM for insomnia so they gave 10 mg of IV Benadryl. ?? Paged again around 3 AM for left hip pain, patient was given IV morphine. Today AM: ?? Patient denies having any acute medical complaints. However, she reports being frustrated with waiting for Dobbhoff tube placement as well as GJ tube placement. OBJECTIVE: Vitals: Last value Range last 24 hrs Temperature Temp: 36.5 ??C (97.7 ??F) Temp: [36.3 ??C (97.3 ??F)-36.9 ??C (98.4 ??F)] Heart Rate Heart Rate: 84 Heart Rate: [84] Blood Pressure BP: 123/61 BP: (99-130)/(50-61) Art Line BP BP (Arterial Line): 111/70 BP (Arterial Line): -- MAP (NBP): [66 mmHg-82 mmHg] Respiratory Rate Resp: 18 Resp: [16-18] SpO2 SpO2: 92 % SpO2: [89 %-100 %] Oxygen Delivery Oxygen Therapy O2 Device: None (Room air) O2 Flow Rate (L/min): 2 L/min FiO2 (%): 21 % Reason for Oxygen: Patient currently on room air Intake/Output Summary (Last 24 hours) at 09/11/2022 0615 Last data filed at 09/10/2022 2252 Gross per 24 hour Intake 986 ml Output 300 ml Net 686 ml I/O last 3 completed shifts: In: 3907 [I.V.:3547; NG/GT:330] Out: 2049 [Urine:2049] Last Bowel Movement: 09/10/22 Body mass index is 27.75 kg/m??. Patient Vitals for the past 168 hrs: Weight 09/09/22 0354 64.5 kg (142 lb 1.6 oz) 09/08/22 0621 64.8 kg (142 lb 14.4 oz) 09/07/22 0617 64.1 kg (141 lb 5 oz) Admit wt: 69 kg Physical Exam: GENERAL: Awake, no acute distress, dobhoff in place w/tape HEENT: Anicteric, no conjunctival injection CV: RRR, no murmurs/rubs/gallops, 2+ radial/DP pulses PULM: Normal respiratory effort, CTA with good air entry bilaterally, coarse bibasilar breath sounds minimal ABDOMEN: Soft, non-tender, non-distended, no masses, no guarding EXTREMITIES: No lower extremity edema. No clubbing or cyanosis PSYCH/NEURO: Intact cognition, no tremor SKIN: Warm, dry, no rashes LABS: CBC: Recent Labs 09/11/22 0405 09/10/22 0920 09/09/22 0400 09/08/22 0200 09/07/22 0030 WBC 4.5 5.7 6.9 6.9 6.2 HGB 9.0* 9.2* 9.8* 9.8* 9.1* HCT 30.2* 31.4* 33.4* 32.6* 30.5* PLATELET 219 229 264 300 286 NEUTROABS 2.39 3.39 3.43 3.42 2.71 Chemistry: Recent Labs 09/11/22 0405 09/10/22 0600 09/09/22 0400 09/08/22 0200 09/07/22 0030 NA 143 140 140 142 138 K 3.4* 3.7 4.3 4.6 4.6 CL 107 105 102 103 103 CO2 28 27 28 30 29 BUN 6* 11 24* 25* 22* CREATININE 0.44* 0.48* 0.56* 0.52* 0.53* GLUCOSE 195 158 139 142 144 ANIONGAP 8 8 10 9 6 Recent Labs 09/11/22 0405 09/10/22 0600 09/09/22 0400 09/08/22 0200 09/07/22 0030 09/06/22 0100 CALCIUM 8.9 9.1 10.1 10.0 9.4 9.5 MAGNESIUM -- 0.67* 0.86 0.90 0.86 0.81 PHOS 2.8 3.3 4.2 3.2 3.0 3.6 LFT's: Recent Labs 08/20/22 1400 08/15/22 0950 08/15/22 0305 BILITOT <0.2* <0.2* 0.2 BILIDIR 0.1 0.1 0.1 ALBUMIN 2.5* 2.4* 2.4* ALKPHOS 213* 102 99 ALT 20 12 13 AST 39* 21 25 Cardiac enzymes: Recent Labs 08/19/22 0120 08/14/22 2355 CK 32 -- PROBNP -- >35,000* Endocrine: Recent Labs 08/20/22 1400 08/15/22 0000 TSH 1.90 0.28 Recent Labs 08/15/22 0305 HA1C 6.2* CRP, Sed Rate Recent Labs 08/21/22 1200 CRP 19.4* SEDRATE >119* Lipids: Lab Results Component Value Date CHLPL 110 08/29/2022 HDL 34 08/29/2022 CHOLHDL 3.2 08/29/2022 TRIG 127 08/29/2022 LDLCHOL 51 08/29/2022 EKG: Lab Results Component Value Date/Time DIAGLINE 09/07/2022 0635 Normal sinus rhythm with sinus arrhythmia Low voltage QRS T wave abnormality, consider anterolateral ischemia Abnormal ECG When compared with ECG of 01-SEP-2022 02:24, No significant change was found I personally reviewed the tracing and edited the fellows interpretation Confirmed by fellow Niurka Rose ([id number]) on 09/07/2022 8:45:34 AM Confirmed by MD ALEJANDRA, RICHARD ([id number]) on 09/07/2022 1:55:43 PM QTCCALC 455 09/07/2022 0635 Microbiology: Lab Results Component Value Date/Time URINECULTURE 1,000-9,000 cfu/ml Insignificant growth 08/15/2022 1225 Lab Results Component Value Date/Time BLOODCX No growth at 5 days. 08/19/2022 1720 BLOODCX No growth at 5 days. 08/19/2022 1330 BLOODCX No growth at 5 days. 08/15/2022 0110 BLOODCX No growth at 5 days. 08/14/2022 2355 Microbiology Results (Last 30 days) Procedure Component Value Units Date/Time Lower Respiratory Culture Bronchial Alveolar Lavage [[id number]] Collected: 08/21/221649 Lab Status: Final result Specimen: Bronchial Alveolar Lavage Updated: 08/23/22 0741 Lower Respiratory Culture Rare mixed bacterial morphotypes suggestive of normal upper respiratory wiley Gram Stain -- Few Neutrophils seen No squamous epithelial cells seen No microorganisms seen. Fungus Culture & Calc Stain Bronchial Alveolar Lavage [[id number]] (Abnormal) Collected: 08/21/221649 Lab Status: Preliminary result Specimen: Bronchial Alveolar Lavage Updated: 08/24/22 1452 AFB culture Bronchial Alveolar Lavage [[id number]] Collected: 08/21/221649 Lab Status: Preliminary result Specimen: Bronchial Alveolar Lavage Updated: 08/24/22 2219 Acid Fast Bacilli Culture -- No Acid Fast Bacilli isolated to date If active tuberculosis is suspected, the patient should be on AIR[employer] PRECAUTIONS. Call Infection Prevention for assistance if needed. Acid Fast Stain No Acid Fast Bacilli seen Fungus culture [[id number]] (Abnormal) Collected: 08/21/221649 Lab Status: Preliminary result Specimen: Bronchial Alveolar Lavage Updated: 08/24/22 145 Fungus Culture Rare Jacky albicans Calcofluor White Stain [[id number]] Collected: 08/21/221649 Lab Status: Final result Specimen: Bronchial Alveolar Lavage Updated: 08/21/222015 Calcofluor Stain Calcofluor White Preparation: Negative Lower Respiratory Culture Bronchial Alveolar Lavage [[id number]] Collected: 08/21/221644 Lab Status: Final result Specimen: Bronchial Alveolar Lavage Updated: 08/23/22 0741 Lower Respiratory Culture Rare mixed bacterial morphotypes suggestive of normal upper respiratory wiley Gram Stain -- Moderate Neutrophils seen No squamous epithelial cells seen No microorganisms seen. Fungus Culture & Calc Stain Bronchial Alveolar Lavage [[id number]] (Abnormal) Collected: 08/21/221644 Lab Status: Preliminary result Specimen: Bronchial Alveolar Lavage Updated: 08/24/22 1453 AFB culture Bronchial Alveolar Lavage [[id number]] Collected: 08/21/221644 Lab Status: Preliminary result Specimen: Bronchial Alveolar Lavage Updated: 08/24/22 2221 Acid Fast Bacilli Culture -- No Acid Fast Bacilli isolated to date If active tuberculosis is suspected, the patient should be on AIRB[employer]NE PRECAUTIONS. Call Infection Prevention for assistance if needed. Acid Fast Stain No Acid Fast Bacilli seen Fungus culture [[id number]] (Abnormal) Collected: 08/21/221644 Lab Status: Preliminary result Specimen: Bronchial Alveolar Lavage Updated: 08/24/22 145 Fungus Culture Rare Jacky albicans Calcofluor White Stain [[id number]] Collected: 08/21/221644 Lab Status: Final result Specimen: Bronchial Alveolar Lavage Updated: 08/21/222016 Calcofluor Stain Calcofluor White Preparation: Negative Blood culture [[id number]] Collected: 08/19/22 1720 Lab Status: Final result Specimen: Blood Updated: 08/24/22 2301 Blood Culture No growth at 5 days. Lower Respiratory Culture Sputum Induced [[id number]] Collected: 08/19/22 1451 Lab Status: Final result Specimen: Sputum Induced Updated: 08/21/22 0948 Lower Respiratory Culture Rare mixed bacterial morphotypes suggestive of normal upper respiratory wiley Gram Stain -- Many Neutrophils seen Few squamous epithelial cells seen No microorganisms seen. Blood culture [[id number]] Collected: 08/19/22 1330 Lab Status: Final result Specimen: Blood Updated: 08/24/22 1501 Blood Culture No growth at 5 days. Legionella Urinary Antigen [[id number]] Collected: 08/18/22 1013 Lab Status: Final result Specimen: Urine Updated: 08/18/22 2252 Legionella Urinary Antigen Negative Comment: A negative Legionella Urinary Antigen by EIA suggests no recent or current infection with L. pneumophila Serogroup 1. Antigen may not be present in urine in early infection, and the level of antigen present in the urine may be below the detection limit of the test. Sensitivity: 95% Specificity 95%. Urine culture Indwelling Catheter Urine; Other; sepsis, bacteria on UA [[id number]] Collected: 08/15/22 1225 Lab Status: Final result Specimen: Indwelling Catheter Urine Updated: 08/16/22 0804 Urine Culture 1,000-9,000 cfu/ml Insignificant growth COVID-19 PCR [[id number]] Collected: 08/15/22 1150 Lab Status: Final result Specimen: Nasopharyngeal Swab Updated: 08/15/22 1501 SARS-CoV-2 RNA PCR Not Detected Comment: This result should be interpreted in combination with the clinical observations, patient history and epidemiological information. For testing of asymptomatic individuals, assay performance characteristics and clinical utility have not been evaluated. Testing for SARS-CoV-2 (Severe acute respiratory syndrome coronavirus 2, formerly known as 2019 novel coronavirus or 2019-nCoV) to aid in the diagnosis of COVID-19 is performed using the Simplexa COVID-19 Direct Assay by [employer] as authorized by the FDA issued Emergency Use Authorization (EUA). This assay is intended for In-vitro Diagnostic (IVD) use with nasopharyngeal swabs collected from individuals meeting the CDC criteria for testing. The assay is performed based on the instructions for use and additional guidance provided by the FDA. Testing is performed in the Microbiology Laboratory within the Department of Pathology and Laboratory Medicine at [facility], certified under the Clinical Laboratory Improvement Amendments of 1988 (CLIA), 42 U.S.C. section 263a, to perform high complexity tests. Assay performance has been verified according to clinical laboratory regulatory requirements. Test results are provided above. A result of Not Detected indicates that the viral RNA target is not present but does not preclude SARS-CoV-2 infection. False negative results may occur if a specimen is improperly collected, transported or handled; if amplification inhibitors are present; or if inadequate numbers of viral particles are present in the specimen. A result of Detected suggests a current or recent infection and the patient is presumed to be infected. Positive and negative predictive values for this test are highly dependent on disease prevalence. A result of Invalid indicates the inability to conclusively determine the presence or absence of SARS-CoV-2 RNA in the sample which can be due to a variety of factors. Recollection is recommended in the case of an invalid result. CDC COVID-19 criteria for testing on human specimens and clinical management guidance information are available at the CDC Coronavirus Disease 2019 (COVID-19) webpage under Information for Healthcare Professionals (https://www.cdc.gov/coronavirus/2019-ncov/hcp/index.html). 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 MRSA PCR Screen ([facility] [place]/CGP/APD/NLH) [[id number]] Collected: 08/15/22 0050 Lab Status: Final result Specimen: Nasopharyngeal Swab Updated: 08/17/22 1419 MRSA Result Negative MRSA Interp -- Methicillin-resistant Staphylococcus aureus (MRSA) is NOT DETECTED The MRSA target DNA sequences (mec and SCC) were not detected within the acceptable ranges using the Xpert MRSA NxG on the GeneXpert Dx System ([employer]). This suggests the absence of MRSA in the patient specimen submitted for testing. This test is cleared by the U.S. Food and Drug Administration for clinical use and its performance characteristics have been verified by the [facility] at [facility]. This result does not rule out the presence of any other organisms. Rare false negative results may occur if MRSA is present at low concentrations with much higher concentrations of other organisms including MRSE or S. aureus with an empty SCC cassette. Comment: [VERIFIED DATE]08.17.22 Verified By:Shannon Smiley (Electronic Signature) Blood culture [[id number]] Collected: 08/14/22 8847 Lab Status: Final result Specimen: Blood Updated: 08/20/22 0701 Blood Culture No growth at 5 days. Imaging/Diagnostics: Results for orders placed or performed during the hospital encounter of 08/14/22 XR Chest One View (Exam End: 08/15/2022 1:00 AM) Impression FINDINGS/IMPRESSION: * Moderate pulmonary edema. * No confluent airspace opacity otherwise seen. * Cannot exclude small pleural effusions. * Cardiomediastinal contours appear within normal limits. * Endotracheal tube tip projects 3.8 cm above the consuelo. * RIGHT neck central catheter, distal catheter coiled over the region of the RIGHT ventricle and pulmonary trunk. Thank you for letting us participate in the care of this patient. If you are a health care provider and have any questions regarding this report, please contact the number below. For patients who have questions please contact the health acute care physician that requested your imaging first. Abdomen 1 view (Generic) (Exam End: 08/15/2022 8:33 AM) Impression The enteric tube sidehole is not definitively subdiaphragmatic. Recommend advancement. Preliminary report signed by: Carlos Wolff at 08/15/2022 9:00 AM I have personally reviewed the image(s) and the resident's interpretation and agree with the findings, Liliane Adams MD at 08/15/2022 9:05 AM Thank you for letting us participate in the care of this patient. If you are a health care provider and have any questions regarding this report, please contact the number below. For patients who have questions please contact the health acute care physician that requested your imaging first. Electronically signed by: Liliane Adams MD, [facility] ([phone]), at 08/15/2022 9:05 AM XR Chest One View (Exam End: 08/15/2022 1:14 AM) Impression FINDINGS/IMPRESSION: * RIGHT neck central catheter redemonstrated terminating over the region of the pulmonary trunk, now uncoiled distally although the tip is looped. * Moderate pulmonary edema redemonstrated. * ET tube projects similar. Thank you for letting us participate in the care of this patient. If you are a health care provider and have any questions regarding this report, please contact the number below. For patients who have questions please contact the health acute care physician that requested your imaging first. Abdomen 1 view (Generic) (Exam End: 08/15/2022 6:38 AM) Impression Nonspecific/nondiagnostic appearance of the abdomen, with large stool burden in the RIGHT hemiabdomen and pelvis. Thank you for letting us participate in the care of this patient. If you are a health care provider and have any questions regarding this report, please contact the number below. For patients who have questions please contact the health acute care physician that requested your imaging first. Chest One View (Exam End: 08/16/2022 10:31 AM) Impression PA catheter has a persistent loop near the tip, similar to the prior comparison study. Improved pulmonary edema. Thank you for letting us participate in the care of this patient. If you are a health care provider and have any questions regarding this report, please contact the number below. For patients who have questions please contact the health acute care physician that requested your imaging first. Electronically signed by: Alfonso Adams MD, [facility] ([phone]), at 08/16/2022 10:[address] Head wo Contrast (Generic) (Exam End: 08/16/2022 10:44 PM) Impression No acute intracranial abnormality and no change from prior Thank you for letting us participate in the care of this patient. If you are a health care provider and have any questions regarding this report, please contact the number below. For patients who have questions please contact the health acute care physician that requested your imaging first. Electronically signed by: Moustapha Correa MD, [facility] ([phone]), at 08/16/2022 11:19 PM XR Abdomen 1 view (Generic) (Exam End: 08/17/2022 12:09 PM) Impression Status post Dobbhoff tube placement with catheter tip terminating at the approximate position of greater curvature. I have personally reviewed the image(s) and the resident's interpretation and agree with the findings, Jenn Pina MD at 08/17/2022 2:31 PM Thank you for letting us participate in the care of this patient. If you are a health care provider and have any questions regarding this report, please contact the number below. For patients who have questions please contact the health acute care physician that requested your imaging first. Head wo Contrast (Generic) (Exam End: 08/18/2022 3:14 PM) Impression No acute intracranial process. Thank you for letting us participate in the care of this patient. If you are a health care provider and have any questions regarding this report, please contact the number below. For patients who have questions please contact the health acute care physician that requested your imaging first. Electronically signed by: Antonio Jordan MD, [facility] ([phone]), at 08/18/2022 3:18 PM XR Chest One View (Exam End: 08/19/2022 12:30 PM) Impression 1. Increased bibasilar airspace opacities compared to radiograph 08/16/2022, concerning for an infectious/inflammatory process. A component of edema not excluded. 2. Overall decreased pulmonary edema. I have personally reviewed the image(s) and the resident's interpretation and agree with the findings, Alan De Guzman MD at 08/19/2022 3:14 PM Thank you for letting us participate in the care of this patient. If you are a health care provider and have any questions regarding this report, please contact the number below. For patients who have questions please contact the health acute care physician that requested your imaging first. Electronically signed by: Alan De Guzman MD, [facility] ([phone]), at 08/19/2022 3:14 PM MRI Brain wo Contrast (Exam End: 08/19/2022 10:15 PM) Impression No acute infarction, mass or mass effect. Thank you for letting us participate in the care of this patient. If you are a health care provider and have any questions regarding this report, please contact the number below. For patients who have questions please contact the health acute care physician that requested your imaging first. Chest for Verifying Vascular Access PICC Placement At Bedside (Exam End: 08/19/2022 4:36 PM) Impression PICC tip is in the superior vena cava above the right atrium. Thank you for letting us participate in the care of this patient. If you are a health care provider and have any questions regarding this report, please contact the number below. For patients who have questions please contact the health acute care physician that requested your imaging first. Electronically signed by: Alan De Guzman MD, [facility] ([phone]), at 08/19/2022 4:[address] Hip w Contrast Left (Exam End: 08/20/2022 11:04 PM) Impression 1. Uncomplicated left femoral neck ORIF with unchanged postoperative alignment. 2. Moderate skin thickening and subcutaneous stranding about the lateral left hip with lateral left thigh intramuscular edema and fascial thickening. These findings are nonspecific and may be seen in the routine postoperative setting. Underlying soft tissue infection with infectious or inflammatory myositis may also have this appearance. Correlation with physical examination, clinical symptoms, and laboratory findings is recommended. 3. 2.3 x 1.6 x 1.8 cm focus of more coalescent fluid attenuation centered in the subcutaneous fat of the posterolateral thigh roughly at the level of the proximal femoral fixation screw heads. There is no rim-enhancing to suggest a mature, organized abscess at this time. However, this finding could represent phlegmon in appropriate clinical context, or it could represent a postsurgical collection, the contents of which may be sterile or infected. 4. There is a rectal tube in place. However, there remains a large stool ball in the rectum with free fluid versus coalescent edema on both the anterior and posterior margins of the distended rectum. In appropriate clinical context, these findings could represent proctocolitis or stercoral colitis. I have personally reviewed the image(s) and the resident's interpretation and agree with the findings, Aicha Chowdhury MD at 08/21/2022 9:34 AM Thank you for letting us participate in the care of this patient. If you are a health care provider and have any questions regarding this report, please contact the number below. For patients who have questions please contact the health acute care physician that requested your imaging first. Electronically signed by: Aicha Chowdhury MD, [facility] ([phone]), at 08/21/2022 9:[address] Chest w Contrast (Exam End: 08/20/2022 11:04 PM) Impression 1. Multifocal lower lobe predominant consolidative opacities with additional upper lobe opacities consistent with multifocal pneumonia. Compared to the prior CT of 08/12/2022 the number and size of the opacities has decreased. Recommend follow-up imaging in 3-6 months to document complete resolution. 2. New small, sub-1 cm early cavitation of multiple opacities predominantly within the posterior left upper lobe and left lower lobe. 3. New curvilinear splenic lesions could represent infarct versus late arterial phase splenic arterial opacification. Thank you for letting us participate in the care of this patient. If you are a health care provider and have any questions regarding this report, please contact the number below. For patients who have questions please contact the health acute care physician that requested your imaging first. Hip 2-3 Views Left (Exam End: 08/22/2022 12:19 AM) Impression No radiographic evidence of infection. Thank you for letting us participate in the care of this patient. If you are a health care provider and have any questions regarding this report, please contact the number below. For patients who have questions please contact the health acute care physician that requested your imaging first. Electronically signed by: Viktor Cervantes MD, [facility] ([phone]), at 08/22/2022 12:43 PM XR Pelvis (Generic) (Exam End: 08/22/2022 12:19 AM) Impression No radiographic evidence of infection status post left hip ORIF. Thank you for letting us participate in the care of this patient. If you are a health care provider and have any questions regarding this report, please contact the number below. For patients who have questions please contact the health acute care physician that requested your imaging first. Electronically signed by: Richard Billings MD, [facility] ([phone]), at 08/22/2022 10:[address] Angiogram Coronary Arteries (Exam End: 08/27/2022 8:58 AM) Impression Coronary calcium score of 0, consistent with no detectable calcified atherosclerotic plaque burden. No evidence of stenosing soft plaque on the coronary CT arteriogram. CAD RADS 0 Ongoing bilateral pulmonary infectious/inflammatory changes with persistent consolidative opacity especially in the left lower lobe. This could represent a multifocal pneumonia. Recommend follow-up CT in 3 months to assess for resolution. Thank you for letting us participate in the care of this patient. If you are a health care provider and have any questions regarding this report, please contact the number below. For patients who have questions please contact the health acute care physician that requested your imaging first. Electronically signed by: Arlette Mays MD, [facility] ([phone]), at 08/27/2022 11:[address] Chest wo Contrast (Generic) (Exam End: 08/27/2022 8:58 AM) Impression Stable findings of multifocal pneumonia. No interval abnormality. Thank you for letting us participate in the care of this patient. If you are a health care provider and have any questions regarding this report, please contact the number below. For patients who have questions please contact the health acute care physician that requested your imaging first. Electronically signed by: MINH QUIROGA MD, [facility] ([phone]), at 08/27/2022 10:48 AM XR Fluoro Barium Swallow (Modified/Video Swallow Pharynx) (Exam End: 08/31/2022 11:23 AM) Impression Abnormal modified barium swallow as above. Please see speech pathology report for further discussion. Thank you for letting us participate in the care of this patient. If you are a health care provider and have any questions regarding this report, please contact the number below. For patients who have questions please contact the health acute care physician that requested your imaging first. Electronically signed by: Aron Billings MD, [facility] ([phone]), at 08/31/2022 12:02 PM XR Fluoro Barium Swallow (Modified/Video Swallow Pharynx) (Exam End: 09/04/2022 10:25 AM) Impression 1. Penetration of the airway and aspiration with thin liquids, especially with rapid sips of thin barium. 2. Flash penetration of nectar thick liquids from a straw. 3. Reflux of residual barium within the esophagus on multiple swallows. I have personally reviewed the image(s) and the resident's interpretation and agree with the findings, Alfonso Adams MD at 09/04/2022 10:57 AM Thank you for letting us participate in the care of this patient. If you are a health care provider and have any questions regarding this report, please contact the number below. For patients who have questions please contact the health acute care physician that requested your imaging first. Electronically signed by: Alfonso Adams MD, [facility] ([phone]), at 09/04/2022 10:57 AM XR Abdomen 1 view (Generic) (Exam End: 09/04/2022 9:47 PM) Impression 1. On the chest radiograph at 2136 hours the enteric tube projects over the mid esophagus. On the abdominal radiograph at 2139 hours the enteric tube now projects below the diaphragm with tip partially visualized projecting over the left mid abdomen. 2. Lower lobe predominant patchy and reticular airspace opacities consistent with sequela of multifocal pneumonia. The appearance is improved compared to prior radiograph. Thank you for letting us participate in the care of this patient. If you are a health care provider and have any questions regarding this report, please contact the number below. For patients who have questions please contact the health acute care physician that requested your imaging first. Chest One View (Exam End: 09/04/2022 9:47 PM) Impression 1. On the chest radiograph at 2136 hours the enteric tube projects over the mid esophagus. On the abdominal radiograph at 2139 hours the enteric tube now projects below the diaphragm with tip partially visualized projecting over the left mid abdomen. 2. Lower lobe predominant patchy and reticular airspace opacities consistent with sequela of multifocal pneumonia. The appearance is improved compared to prior radiograph. Thank you for letting us participate in the care of this patient. If you are a health care provider and have any questions regarding this report, please contact the number below. For patients who have questions please contact the health acute care physician that requested your imaging first. Chest One View (Exam End: 09/05/2022 9:24 AM) Impression 1. Reposition enteric tube now extending below the diaphragm and included [id number]. 2. Similar appearance of elevated right hemidiaphragm and linear/patchy bibasilar opacities which may represent atelectasis or possibly aspiration. Thank you for letting us participate in the care of this patient. If you are a health care provider and have any questions regarding this report, please contact the number below. For patients who have questions please contact the health acute care physician that requested your imaging first. Electronically signed by: AUDI PERDOMO MD, [facility] ([phone]), at 09/05/2022 3:43 PM XR Abdomen 1 view (Generic) (Exam End: 09/10/2022 1:04 AM) Impression Dobbhoff with tip at the level of the pyloric region. I have personally reviewed the image(s) and the resident's interpretation and agree with the findings, Camille Garcia MD at 09/10/2022 1:16 AM Thank you for letting us participate in the care of this patient. If you are a health care provider and have any questions regarding this report, please contact the number below. For patients who have questions please contact the health acute care physician that requested your imaging first. Electronically signed by: Camille Garcia MD, [facility] ([phone]), at 09/10/2022 1:16 AM Medications: Scheduled: ??? potassium chloride 10 mEq Intravenous Q1H ??? buPROPion 100 mg Per NG tube Daily ??? melatonin 6 mg Per NG tube Nightly ??? metoprolol tartrate 12.5 mg Per NG tube 2 times per day ??? QUEtiapine 100 mg Per NG tube Nightly ??? sacubitriL-valsartan 1 tablet Per NG tube BID ??? valproic acid 300 mg Per NG tube Q6H ??? insulin lispro 1-10 Units Subcutaneous Q4H LAZARUS ??? miconazole nitrate Topical (Top) BID ??? lidocaine 3 patch Transdermal Q24H ??? ergocalciferoL (vitamin D2) 50,000 Units Per NG tube Weekly ??? enoxaparin 40 mg Subcutaneous Daily ??? atorvastatin 80 mg Per NG tube QPM ??? folic acid 1,000 mcg Per NG tube Daily ??? ferrous sulfate 300 mg Per NG tube Every Other Day ??? chlorhexidine 15 mL Oral BID ??? pantoprazole 40 mg Intravenous BID ??? sodium chloride 0.9 % (flush) 5 mL Intravenous BID ??? thiamine 100 mg Intravenous Daily Continuous: ??? dextrose 5% lactated ringers 100 mL/hr (09/10/222251) ??? tube feeding diet Stopped (09/08/222025) PRN: prochlorperazine, ondansetron, diclofenac, acetaminophen, polyethylene glycoL, senna, bisacodyL, sodium chloride 0.9 % (flush), lidocaine, glucose 40% oral geL OR dextrose 10% OR glucagon ASSESSMENT and PLAN: Ishan Irving is a 62 y.o. 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.5 years) c/b chronic pancreatitis, iron deficiency anemia,??GE RD??c/b??esophagitis &??Farrell's esophagus, who was admitted to [facility] on 08/14/2022 (now on Hospital Day #23) for mixed shock and stress cardiomyopathy who transferred to Hospital Medicine due to persistent dysphagia. 09/11/22 Ishan is doing well today and is happy to be in a different room. Given recent episode of prior aspiration event and ongoing dysphagia, attempted PEG placement with surgery. However, during the procedure, general surgery was unable to pass the EGD scope into the stomach secondary to a tight esophageal stricture. Therefore, will involve IR for fluoroscopic GJ-tube placement per surgery recommendations. Also reengage GI given likely worsening esophageal stricture and they will see the patient in the outpatient setting for esophageal dilation. Ishan's continues to ask about the possibility that she be rehabbed in placed enough to potentially go home; encouraged them that she should continue to work with PT/OT/GAS STATION SUPERVISOR/nursing but that the most recent assessments still recommended discharge to SNF. Today's plan: - Replace Dobbhoff tube since current Dobbhoff is not flushing - Diabetes Team aware and titrating insulin accordingly - Surgery could not place PEG tube due to esophageal stricture - IR involved for fluoroscopic GJ-tube placement per general surgery recommendations - Reengage GI for worsening esophageal stricture, they will see her in the outpatient setting # Bipolar Disorder - Continue Seroquel 100mg nightly for now, patient and want it uptitrated before discharge - C/w valproate 300mg q6h - GAS STATION SUPERVISOR following, NPO at present - Psychiatry Consult, appreciate recs, recommended - Continue Wellbutrin 100mg IR as other formulations cannot be crushed for NG # Medication-induced Parkinsonism # Dysphagia # Esophageal stricture - Replace Dobbhoff tube since current Dobbhoff is not flushing - Diabetes Team aware and titrating insulin accordingly - Surgery could not place PEG tube due to esophageal stricture - IR involved for fluoroscopic GJ-tube placement per general surgery recommendations - Reengage GI for worsening esophageal stricture, they will see her in the outpatient setting # Acute hypoxic respiratory failure, resolved # Bilateral airspace opacities/multifocal pneumonia, resolved -??Respiratory support with LFNC PRN - Antibiotics: Status post zosyn for pneumonia, stopped per ID - Fungitell and Fungal Cx positive, no change in management at this time per ID - CT Chest showed persistent pneumonia; ID followed, patient completed course of antibioitics ?? # Distributive Shock, resolved # NSTEMI Type I vs Type II, resolved # HFrEF (EF 25%) #Stress Cardiomyopathy - Will not perform LHC given results of CTA coronary arteries. - ASA 81mg - Entresto 24-26 1 tab BID - Metoprolol 25mg daily, starting 08/30 as tartrate for Dobhoff - Spironolactone 12.5mg QD (held starting 08/30 in setting of NPO status) - Empagliflozin 10mg as part of GDT - She will need a repeat TTE at some point to assess for resolution/improvement of presumed stress induced cardiomyopathy - Mg >1, K >4 ?? # GERD c/b Farrell's esophagus & esophagitis # Constipation- resolved # Rectal wall edema 2/2 stool ball - Has Miralax, senna, dulcolax PRN ordered - Continue home pantoprazole 40 BID - We will reengage GI given presence of likely worsening stricture ?? # Insulin-dependent diabetes -??Diabetes Management consulted, appreciate recs # Mixed JERRICA and ACD - Oral iron supplementation started 08/21 > s/p 1 dose of Venofer - Ferritin, Iron, TIBC resulted; mixed picture - Transfuse for Hb <8 - S/p 1u pRBC 08/22 ?? # Septic shock # Bilateral airspace opacities/multifocal pneumonia # L Hip Fluid Collection # Subcentimeter left posterior upper lobe cavitary lesions - Infectious work-up initially did not yield any clear causative organisms - S/p BAL 08/21 without any growth to date. - IR, orthopedic surgery consulted for evaluation of L hip fluid collection. No intervention/drainable target. - Stopped zosyn as per ID (08/14- 08/23) - Fungal testing positive no change in management at this time per ID #Housekeeping: DVT PPx: LMWH GI PPx: N/a Diet: NPO diet (Give Meds) Lines: PICC Line - Double Lumen 08/19/22 1655 basilic vein (medial side of arm), right 5 Fr (Active) Number of days: 22 D/c planning: Acute rehab Code status: Attempt Cardiopulmonary Resuscitation - Inpatient Chau Keith MD Internal Medicine PGY1 Medicine Team: Jose Juan, Pager #[phone] Date: 09/11/2022 Associated attestation - Molina Flores MD - 09/11/2022 12:04 PM EDT Attending Attestation and Certification Please see Chau Keith MD's note for details of the patient history of presentation and data. I have discussed, reviewed and agree with the documented History, Physical findings, Assessment and Plan of care. I have examined the patient myself and personally reviewed all studies. In addition, I certify thatI am a [facility] credentialed attending provider with admitting privileges and that the patient meets or has met medical necessity to require an inpatient IPI level of care meeting a minimum of two midnights or is on the [facility] inpatient only procedure list (status C) due to: mixed shock, stress cardiomyopathy, aspiration pneumonia with underlying persistent dysphagia 2/2 stenosis at the Farrell esophagussite. Pt awaiting GJ tube placement per general surgery team recommendations with the IR service. Dobshoff tube not working and thus not able to get medications overnight causing lack of sleep. Will replace Dobbhoff tube today in coordination with the ICU nurses. * Duncan Almaguer, ERI - 09/10/2022 6:06 PM EDT OUTCOME EVALUATION NOTE: OUTCOME SUMMARY: Pt alert & Oriented X4, on RA. VSS stable except for intermittent tachycardia on exertion- during PT and transfer from chair to bed. C/O nausea , x2 episodes of clear emesis given PRN IV Zofran 4mg this am and 5mg IV Compazine this pm. Per NG tube med's held, care team aware. Will continue to monitor. PLAN MOVING FORWARD: Encourage ambulation Plan for J-G tube placement BG monitoring INDIVIDUALIZED FALL PREVENTION INTERVENTIONS: Patient-specific fall risk factors per assessment: [current deficits]: Generalized weakness, hospital environment , IV/devices Assistance [level of assistance required for transfers and ambulation]: X2 assist + walker Supervision [direct monitoring required during toileting and ADLs]: Eyes on, hands on Surveillance [continuous indirect monitoring]: Room close to unit station, Masimo, ID band Patient-specific fall prevention interventions for sensory deficits provided, if applicable: [X] N/A CARE PLAN GOAL OUTCOME EVALUATION: * Briana Bryant, GAS STATION SUPERVISOR - 09/10/2022 12:44 PM EDT Speech Therapy Note Patient Profile:??Ishan Irving is a 62 year old female with a medical history notable for??recent L femoral neck fracture,??bipolar disorder, resolving medication-induced Parkinsonism, insulin-dependent diabetes mellitus,??hx of alcohol use disorder (reported to be in remission for 1.5 years)c/b chronic pancreatitis, iron deficiency anemia,??GERD??c/b??esophagitis &??Farrell's esophagus??presenting in transfer from [facility]on 08/14/2022, suspected to be in cardiogenic shock and found to be in mixed shock with concern for stress cardiomyopathy.??GAS STATION SUPERVISOR following for swallow, cognitive tx. MBS completed 08/31/22 noting moderate-severe oropharyngeal dysphagia. ?? Interval History:??DHT, J-G tube pending. Subjective: Pt up to chair, asking RN for ice chips; pt w/ recurrent episodes of regurgitation of clear phlegm liquid Objective: Pt seen for dysphagia management and demonstrated the following: Pain: No overt s/sx pain or discomfort Respiratory Status: Room air Current Diet: NPO diet (Give Meds); RN notes that MD's OK'd small amounts ice chips for comfort forpt Feeding / Oral Care Status: Pt requires cues and / or assistance Cognitive-Linguistic Status:Fully conscious, awake/alert; oriented x4 Olo/30 Command Following: Follows single step commands Positioning: Pt up to chair Oral / Laryngeal Mechanism Clinical Assessment: Unchanged from previous session. Bolus Presentation(s) ?? Ice chips x8 Oral Preparatory Phase: WFL for minimal ice chip trials Pharyngeal Phase: no overt s/sx aspiration noted w/ ice chips (no changes in vocal quality, cough/throat clear, or changes in respiratory status noted); pt denied globus sensation Esophageal Observations: pt w/ recurrent regurgitation episodes this morning and x1 of 8 ice chip trials w/ GAS STATION SUPERVISOR; refer to Gastroenterology note for further information. Education: Pt educated on results and recommendations, discussed with nursing. Assessment: Pt was seen today for a follow-up GAS STATION SUPERVISOR visit. Pt w/ ongoing moderate- severe dysphagia asseen on the results of 09/04/22 MBS, awaiting J-G tube placement. Pt appears to tolerate small amounts of ice chips with no overt s/sx aspiration at bedside. However, pt has been having reoccuring episodes of regurgitation w/ unclear eitiology causing her to cough up large amounts of clear liquids; suspect this is unrelated to PO intake at this time as pt has been NPO for multiple days. Recommend allowing small amounts of ice chips for pt pleasure/comfort and swallow practice. Nursing to use discretion if PO ice chips becomes unsafe and pt demonstrates overt s/sx aspiration. Pt will benefit from continued therapeutic interventions to achieve therapy goals. Diagnosis: Oropharyngeal dysphagia, acute on chronic Recommendations: Diet:??NPO, May offer individual ice chips for pleasure / practice as per MD; Tube Feed for maximalnutrition (on hold currently for ? G-J placement) PO medications:??IV or other alternative means only ?? Aspiration Precautions:? Excellent oral care?? Speech Therapy Goals: Swallow: Pt will tolerate least restrictive diet without evidence of dysphagia / aspiration. Pt / caregiver will be independent with aspiration precautions, diet modifications, and ??safe swallowing strategies. Pt will demonstrate effortful swallows with good execution Pt will independently demonstrate lingual, labial, buccal, facial exercises with good execution Pt will maintain hydration / nutrition with optimal safety and efficiency.? Pt will participate in Modified Barium Swallow Study. Met ?? Delirium:?? Pt will improve orientation to x4 consistently with use of frequent re- orientations and visual aides in room as able. Met Pt will participate in simple reasoning and memory tasks to promote cognitive simulation and reducerisk of delirium Pt/caregivers will follow anti-delirium precautions independently with assist from??staff as needed Plan: Therapy Frequency (GAS STATION SUPERVISOR Eval): 2-4 times/wk Pt./family are in agreement with treatment plan. Total Minutes (Speech Language Pathology): 12 Thank you for this consult with this patient. Please feel free to message me with any questions or concerns. Doe Juarez Tele Marketing Executive Clinician Speech-Language Pathology Patient status, treatment interventions, and goals discussed with student. I am in agreement with note as documented and was present for all aspects of the patient treatment session. Briana Bryant MA, [facility]-GAS STATION SUPERVISOR Pager: [phone] Speech-Language Pathology Inpatient Rehabilitation Medicine * Marybeth Shelley RN - 09/10/2022 11:29 AM EDTSummary: [facility] Medicaid Referral Identification of Senior Living Care Medicaid insurance coverage IS required to facilitate this hospital discharge and was determined due to the following circumstances: Patient is in need of rehab at discharge prior to returning home with . Current insurance plan is [place] Medicaid Primary Care Plus, this plan does not have rehab coverage. Confirmed with spouse that they DO NOT have [employer] [place] Medicaid coverage for [place] residents or [employer] [place] Medicaid coverage for [place] residents and that an application for these specific Contract Sheltered Workshop Supervisor Care Medicaid programs HAVE NOT been submitted to their State of Residence to date for enrollment. Conversation with patient and/or patient advocate regarding the need for Senior Living Care Medicaid insurance coverage was conducted on 09/10/2022 and a referral has been made to the Care Management Hospitalist Program Director for Senior Living Care Medicaid insurance assistance and/or enrollment on 09/10/2022. Marybeth Shelley RN, BSN Deck Engine Operator - Medicine Office of Care Management Office: Pager: [phone] * Minh Cantu MD - 09/10/2022 11:00 AM EDT General Surgery Consultation Note Date of Consultation: 09/10/2022 Consult Service: General Surgery History of Present Illness: Ishan Irving is a 62 y.o. 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.5 years) c/b chronic pancreatitis, iron deficiency anemia,??GE RD??c/b??esophagitis &??Farrell's esophagus, who was admitted to [facility] on 08/14/2022 (now on Hospital Day #21), and transferred to Hospital Medicine team from Cardiology on 08/30 for mixed shock withconcern for stress cardiomyopathy (Takotsubo Cardiomyopathy). Due to her history of GERD, and intubation during this hospital stay, she consequently suffered dysphagia, failing a modified barium swallow. Prior to the MBS, she had a Dobbhoff tube in place for enteral access. Enteral access is urgent within 24 hours for this patient because she experienced catatonic bipolar episodes during this hospitalization which only bupropion were able to alleviate, withno IV alternative. The patient reports that her last off tube was very uncomfortable and that she does not wish to repeat the experience. However she is amenable to PEG. She has a number of documented scopes for GERD but no documented surgeries. She is not on anticoagulation or steroids. Procedures: 09/09: Status post attempted PEG tube placement; but encountered significant esophageal stricture with about 0.5 cm lumen. PEG procedure aborted on DHT tube placed. 24 hr events. -No acute events overnight. -Patient denies any chest pain or abdominal pain currently Physical Exam: Last Set of Vitals and Range over past 24 hours: Last value Range last 24 hrs Temperature Temp: 36.9 ??C (98.4 ??F) Temp: [36.4 ??C (97.5 ??F)-37 ??C (98.6 ??F)] Heart Rate Heart Rate: 91 Heart Rate: [78-94] Blood Pressure BP: 110/53 BP: (92-130)/(50-59) Respiratory Rate Resp: 18 Resp: [17-28] SpO2 SpO2: 94 % SpO2: [90 %-100 %] BMI: Weight: 64.5 kg (142 lb 1.6 oz) (09/09/22 0354) BMI (Calculated): 31.77 BMI Classification: Obese Physical Exam General: NAD, resting comfortably HEENT: NCAT , SBDHT to right nare. CVS: RR Pulm: NWOB Abd: Non-distended, soft, nontender. Ext: WWP Neuro: Grossly intact to conversation with slowed affect Laboratory (Last 24 Hours): Recent Labs 09/10/22 0920 WBC 5.7 HGB 9.2* HCT 31.4* PLATELET 229 Lab Results Component Value Date INR 2.0 08/15/2022 Radiology: N/A Assessment: Ishan Irving is a 62 y.o. Female in need of durable enteral access as well as urgent enteral access for PO medications due to dysphagia. She was amenable to an NG tube to bridge her to a morepermanent solution next week as it appears her dysphagia will be chronic. NAEON. With stricture encountered during PEG placement, will defer to IR for GJ tube placement. Would also recommend GI consult for possible serial dilatations of esophagus. Recommendations: -Recommend IR placement of GJ tube. -GI consult for management of esophageal stricture. Plan communicated to primary team. Consult service will continue to follow patient. Discussed with Dr. Isidro Cantu MD 09/10/2022 * Trell Sanford, PT - 09/10/2022 9:41 AM EDT Physical Therapy Note Treatment Number PT: 10 Patient profile: sIhan Irving is a 62 y.o. female admitted on 08/14/2022 with a medical history notable for??recent L femoral neck fracture,??bipolar disorder, resolving medication-induced Parkinsonism, insulin-dependent diabetes mellitus,??hx of alcohol use disorder (reported to be in remission for 1.5 years) c/b chronic pancreatitis, iron deficiency anemia,??GERD??c/b??esophagitis &??Farrell's esophagus??presenting in transfer from [facility], suspected to be in cardiogenic shock and found to be in mixed shock with concern for stress cardiomyopathy. She is s/p ORIF left femoral neck fracture ~ 4/ at OSH. Interval History: Transferred to [facility], attempted PEG placement 09/09, unsuccessful d/t esophageal stricture. Plan for IR involvement to place Social History: single level home w ramp to enter. 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 Pt drives, does all community chores. Does have a RW avail at home which she had been using since ORIF. Fall Hx: Spouse reports that pt slipped in a puddle of water left by the dog which is the cause of her hip fx Precautions/Special Considerations: WBAT L leg, Fall risk, dobhoff Mobility and Positioning Recommendations: ?? Pt able to stand pivot transfer with FWW and 2 assist ?? Please encourage up to chair for meal times as able. Subjective: My left foot is numb I need to sit! Objective: Patient seen for physical therapy and demonstrated the following: Pain: no c/o pain, did not L foot/ distal LE (from mid calf distally) numbness Vital Signs: stable on room air. ?? Pt supine in bed, agreeable to therapy after discussion and encouragement from , Antonio, at bedside ?? Supine to sit, HOB slightly elevated, Min A for trunk via hand hold to patient's left ?? Steady sitting edge of bed, extra time required to scoot toward the edge ?? Sit > stand: Mod-MaxAx1 from EOB x1, low black visitor chair x5 during session. Initially attempted w/ BUE on FWW unsuccessfully. Cued for LUE on armrest, RUE on FWW and for trunk momentum withfair effect, however patient requiring significant assistance and encouragement to perform at timesrequiring multiple attempts. ?? Stand > sit: Mod-MaxAx1 to bedside recliner, low black visitor chair x5 during session. Patient with tendency to sit abruptly and when not square to surface requiring assistance to safely guideto seated. Unable to follow cues to reach back with UE prior to sitting. ?? Ambulation: 5', 10' x3, 12' with FWW and Min A, chair follow. Patient demonstrating step to pattern leading with LLE w/ foot flat contact. Moderate UE assist on FWW. Short rest breaks in between each walk, frequently setting short distance goals for pt to meet throughout the ambulation task withfair effect. ?? Pt left in bedside recliner chair with chair alarm on, all needs met, in room following visit. Education: Pt educated on sit <> stand mechanics, safety, PT goals, PT plan of care. Assessment: Ishan Irving was seen today for physical therapy treatment session for continuation of POC. Patient tolerated session today fairly, however continues to be quite anxious with ambulation and demonstrates poor safety awareness. She required significant assistance in transition from sit <> stand with max multimodal cues, and necessitated a close chair follow due to her often quickly moving to seated w/o advance warning over short ambulatory distances. Recommended discharge to SNF to improve functional mobility and safety. Pt will benefit from ongoing therapeutic interventions to achieve therapy goals. Discharge Recommendations: Based on the current findings, Anticipated Discharge Disposition (PT): [facility] facility when medically ready for hospital discharge. Consult Recommendations: No other consults recommended at this time. Equipment needs: none Anticipated Equipment Needs at Discharge (PT): to be determined Physical Therapy Goals: To be achieved by 09/24/22: Ongoing ?? 1. Pt. will demonstrate understanding of appropriate exercises and perform them independently or with family. 2. Pt. will perform bed mobility with modified independence. 3. Pt. will perform sit to stand transfers with min A using a front wheeled walker. 4. Pt. Will perform sit to stand transfers with CGA using a front wheeled walker. 5. Pt. will ambulate 10 feet with mod A using a front wheeled walker. Met 6. Pt. Will ambulate 25 with CGA using a front wheeled walker. 7. Pt. will ascend/descend step/stairs sufficient for home using rail and assist of 1 Plan: Therapy Frequency (PT): 2-4 times/wk for skilled PT rx as outlined in initial evaluation. Patient agrees with plan as stated. Time IN / OUT: 2454-5909 Total Minutes, Physical Therapy: 42 Billing Code: TA x3 Trell Sanford, PT, DPT Pager: [phone] Physical Therapy Inpatient Rehabilitation Department * Lucia Oneal RN - 09/10/2022 8:27 AM EDT Interventional Radiology Nursing and/or providers have determined that this patient is not a candidate for moderate sedation based on one or more of the following criteria listed below: 1. Mallampati of 4 2. Patient with ALS or MS and questionable airway 3. Inability to clear own secretions/on aspiration precautions. 4. Recent ENT surgery within 1 week (neck dissections, glossectomies). Should be on a case by case basis after review of chart. 5. Combative/inability to hold still for procedure/unable to follow commands or communicate needs. 6. Inability to lay flat. 7. Patient refused moderate sedation. 8. Unstable vital signs. 9. Pt is not NPO per protocol. 10. Pt. is on a ventilator. 11. Previous inability to tolerate procedure with IV sedation. 12. PT ON CPAP OR BIPAP or any documented history of Obstructive Sleep Apnea (MRI ONLY) 13. Tremors (MRI ONLY) PLEASE WRITE A NOTE AND/OR CORRESPONDING STATING REASON: Last revised on 03/10/22 #3, per recent GAS STATION SUPERVISOR note on 09/04 - Addendum: GAS STATION SUPERVISOR returned to pt's room at 1230 to discuss results and recommendations. Informed pt ofrecommendation to maintain NPO status d/t regurgitation pending GI re-involvement. Plan to continuewith swallow therapy for oropharyngeal dysphagia, but will defer recommending an oral diet at this t juli d/t pharyngoesophageal retention and subsequent reflux resulting in suspected aspiration. She endorsed recent PNA associated with her dysphagia. Pt verbalized understanding and agreement with thetreatment plan and informed GAS STATION SUPERVISOR of her continued goal to resume consuming a regular diet. Results and recommendations discussed with RN. * Chau Keith MD - 09/10/2022 6:18 AM EDT Images from the original note were not included. Inpatient Hospital Medicine Progress Note 09/10/2022 Patient Name: ISHAN IRVING Date of : 1960 Age: 62 y.o. Hospital Admit Date: 08/14/2022 Hospital Day: 27 Inpatient Attending: Molina Flores MD PCP: Chris Stanley APRN ([phone]) ID: Ishan Irving is a 62 y.o. 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.5 years) c/b chronic pancreatitis, iron deficiency anemia, ??GERD??c/b??esophagitis &??Farrell's esophagus, who was admitted to [facility] on 08/14/2022 (now on Hospital Day #27) for mixed shock and stress cardiomyopathy who transferred to Hospital Medicine due to persistent dysphagia. 24 HOUR EVENTS & SUBJECTIVE: Yesterday: ?? Doing okay. ?? Bumped from OR schedule. Overnight: ?? 0200 - Found out that [facility] were unable to get the EGD scope into the stomach due to tight esophageal stricture. They placed a dobhoff tube. ?? 0300 - Dobhoff very difficult to flush, not using Today AM: ?? Continues to report mild nausea without any vomiting. ?? Otherwise denies any other acute medical complaints. OBJECTIVE: Vitals: Last value Range last 24 hrs Temperature Temp: 36.4 ??C (97.5 ??F) Temp: [36.4 ??C (97.5 ??F)-37 ??C (98.6 ??F)] Heart Rate Heart Rate: 91 Heart Rate: [78-94] Blood Pressure BP: 110/53 BP: (92-131)/(51-63) Art Line BP BP (Arterial Line): 111/70 BP (Arterial Line): -- MAP (NBP): [65 mmHg-86 mmHg] Respiratory Rate Resp: 17 Resp: [16-28] SpO2 SpO2: 100 % SpO2: [90 %-100 %] Oxygen Delivery Oxygen Therapy O2 Device: Nasal cannula O2 Flow Rate (L/min): 1 L/min FiO2 (%): 21 % Reason for Oxygen: Patient currently on room air Intake/Output Summary (Last 24 hours) at 09/10/2022 0618 Last data filed at 09/10/2022 0343 Gross per 24 hour Intake 3877 ml Output 2050 ml Net 1827 ml I/O last 3 completed shifts: In: 1450 [I.V.:1010; NG/GT:260] Out: 2100 [Urine:2100] Last Bowel Movement: 09/09/22 Body mass index is 27.75 kg/m??. Patient Vitals for the past 168 hrs: Weight 09/09/22 0354 64.5 kg (142 lb 1.6 oz) 09/08/22 0621 64.8 kg (142 lb 14.4 oz) 09/07/22 0617 64.1 kg (141 lb 5 oz) 09/04/22 0554 68.9 kg (152 lb) Admit wt: 69 kg Physical Exam: GENERAL: Awake, no acute distress, dobhoff in place w/tape HEENT: Anicteric, no conjunctival injection CV: RRR, no murmurs/rubs/gallops, 2+ radial/DP pulses PULM: Normal respiratory effort, CTA with good air entry bilaterally, coarse bibasilar breath sounds minimal ABDOMEN: Soft, non-tender, non-distended, no masses, no guarding EXTREMITIES: No lower extremity edema. No clubbing or cyanosis PSYCH/NEURO: Intact cognition, no tremor SKIN: Warm, dry, no rashes LABS: CBC: Recent Labs 09/09/220 09/08/220 09/07/220 09/06/220 09/05/22 0106 WBC 6.9 6.9 6.2 6.3 4.9 HGB 9.8* 9.8* 9.1* 8.6* 8.7* HCT 33.4* 32.6* 30.5* 29.0* 29.0* PLATELET 264 300 286 297 314 NEUTROABS 3.43 3.42 2.71 2.64 1.88 Chemistry: Recent Labs 09/09/22 0400 09/08/22 0200 09/07/220 09/06/22 0100 09/05/22 0106 NA 140 142 138 139 140 K 4.3 4.6 4.6 4.3 3.8 CL 102 103 103 104 103 CO2 28 30 29 28 28 BUN 24* 25* 22* 21* 21* CREATININE 0.56* 0.52* 0.53* 0.49* 0.49* GLUCOSE 139 142 144 95 95 ANIONGAP 10 9 6 7 9 Recent Labs 09/09/22 0400 09/08/22 0200 09/07/22 0030 09/06/22 0100 09/05/22 0106 CALCIUM 10.1 10.0 9.4 9.5 9.5 MAGNESIUM 0.86 0.90 0.86 0.81 0.91 PHOS 4.2 3.2 3.0 3.6 3.9 LFT's: Recent Labs 08/20/22 1400 08/15/22 0950 08/15/22 0305 BILITOT <0.2* <0.2* 0.2 BILIDIR 0.1 0.1 0.1 ALBUMIN 2.5* 2.4* 2.4* ALKPHOS 213* 102 99 ALT 20 12 13 AST 39* 21 25 Cardiac enzymes: Recent Labs 08/19/22 0120 08/14/22 2355 CK 32 -- PROBNP -- >35,000* Endocrine: Recent Labs 08/20/22 1400 08/15/22 0000 TSH 1.90 0.28 Recent Labs 08/15/22 0305 HA1C 6.2* CRP, Sed Rate Recent Labs 08/21/22 1200 CRP 19.4* SEDRATE >119* Lipids: Lab Results Component Value Date CHLPL 110 08/29/2022 HDL 34 08/29/2022 CHOLHDL 3.2 08/29/2022 TRIG 127 08/29/2022 LDLCHOL 51 08/29/2022 EKG: Lab Results Component Value Date/Time DIAGLINE 09/07/2022 0635 Normal sinus rhythm with sinus arrhythmia Low voltage QRS T wave abnormality, consider anterolateral ischemia Abnormal ECG When compared with ECG of 01-SEP-2022 02:24, No significant change was found I personally reviewed the tracing and edited the fellows interpretation Confirmed by fellow Niurka Rose ([id number]) on 09/07/2022 8:45:34 AM Confirmed by MD ALEJANDRA, RICHARD ([id number]) on 09/07/2022 1:55:43 PM QTCCALC 455 09/07/2022 0635 Microbiology: Lab Results Component Value Date/Time URINECULTURE 1,000-9,000 cfu/ml Insignificant growth 08/15/2022 1225 Lab Results Component Value Date/Time BLOODCX No growth at 5 days. 08/19/2022 1720 BLOODCX No growth at 5 days. 08/19/2022 1330 BLOODCX No growth at 5 days. 08/15/2022 0110 BLOODCX No growth at 5 days. 08/14/2022 2355 Microbiology Results (Last 30 days) Procedure Component Value Units Date/Time Lower Respiratory Culture Bronchial Alveolar Lavage [[id number]] Collected: 08/21/221649 Lab Status: Final result Specimen: Bronchial Alveolar Lavage Updated: 08/23/22 0741 Lower Respiratory Culture Rare mixed bacterial morphotypes suggestive of normal upper respiratory wiley Gram Stain -- Few Neutrophils seen No squamous epithelial cells seen No microorganisms seen. Fungus Culture & Calc Stain Bronchial Alveolar Lavage [[id number]] (Abnormal) Collected: 08/21/221649 Lab Status: Preliminary result Specimen: Bronchial Alveolar Lavage Updated: 08/24/22 1452 AFB culture Bronchial Alveolar Lavage [[id number]] Collected: 08/21/221649 Lab Status: Preliminary result Specimen: Bronchial Alveolar Lavage Updated: 08/24/22 2219 Acid Fast Bacilli Culture -- No Acid Fast Bacilli isolated to date If active tuberculosis is suspected, the patient should be on [employer] PRECAUTIONS. Call Infection Prevention for assistance if needed. Acid Fast Stain No Acid Fast Bacilli seen Fungus culture [[id number]] (Abnormal) Collected: 08/21/221649 Lab Status: Preliminary result Specimen: Bronchial Alveolar Lavage Updated: 08/24/22 145 Fungus Culture Rare Jacky albicans Calcofluor White Stain [[id number]] Collected: 08/21/221649 Lab Status: Final result Specimen: Bronchial Alveolar Lavage Updated: 08/21/222015 Calcofluor Stain Calcofluor White Preparation: Negative Lower Respiratory Culture Bronchial Alveolar Lavage [[id number]] Collected: 08/21/221644 Lab Status: Final result Specimen: Bronchial Alveolar Lavage Updated: 08/23/2241 Lower Respiratory Culture Rare mixed bacterial morphotypes suggestive of normal upper respiratory wiley Gram Stain -- Moderate Neutrophils seen No squamous epithelial cells seen No microorganisms seen. Fungus Culture & Calc Stain Bronchial Alveolar Lavage [[id number]] (Abnormal) Collected: 08/21/221644 Lab Status: Preliminary result Specimen: Bronchial Alveolar Lavage Updated: 08/24/22 1453 AFB culture Bronchial Alveolar Lavage [[id number]] Collected: 08/21/221644 Lab Status: Preliminary result Specimen: Bronchial Alveolar Lavage Updated: 08/24/22 222 Acid Fast Bacilli Culture -- No Acid Fast Bacilli isolated to date If active tuberculosis is suspected, the patient should be on [employer] PRECAUTIONS. Call Infection Prevention for assistance if needed. Acid Fast Stain No Acid Fast Bacilli seen Fungus culture [[id number]] (Abnormal) Collected: 08/21/22 1645 Lab Status: Preliminary result Specimen: Bronchial Alveolar Lavage Updated: 08/24/22 1453 Fungus Culture Rare Jacky albicans Calcofluor White Stain [[id number]] Collected: 08/21/22 164 Lab Status: Final result Specimen: Bronchial Alveolar Lavage Updated: 08/21/22 2017 Calcofluor Stain Calcofluor White Preparation: Negative Blood culture [[id number]] Collected: 08/19/22 1720 Lab Status: Final result Specimen: Blood Updated: 08/24/22 2301 Blood Culture No growth at 5 days. Lower Respiratory Culture Sputum Induced [[id number]] Collected: 08/19/22 1451 Lab Status: Final result Specimen: Sputum Induced Updated: 08/21/22 0948 Lower Respiratory Culture Rare mixed bacterial morphotypes suggestive of normal upper respiratory wiley Gram Stain -- Many Neutrophils seen Few squamous epithelial cells seen No microorganisms seen. Blood culture [[id number]] Collected: 08/19/22 1330 Lab Status: Final result Specimen: Blood Updated: 08/24/22 1501 Blood Culture No growth at 5 days. Legionella Urinary Antigen [[id number]] Collected: 08/18/22 1013 Lab Status: Final result Specimen: Urine Updated: 08/18/22 2252 Legionella Urinary Antigen Negative Comment: A negative Legionella Urinary Antigen by EIA suggests no recent or current infection with L. pneumophila Serogroup 1. Antigen may not be present in urine in early infection, and the level of antigen present in the urine may be below the detection limit of the test. Sensitivity: 95% Specificity 95%. Urine culture Indwelling Catheter Urine; Other; sepsis, bacteria on UA [[id number]] Collected: 08/15/22 1225 Lab Status: Final result Specimen: Indwelling Catheter Urine Updated: 08/16/22 0804 Urine Culture 1,000-9,000 cfu/ml Insignificant growth COVID-19 PCR [[id number]] Collected: 08/15/22 1150 Lab Status: Final result Specimen: Nasopharyngeal Swab Updated: 08/15/22 1501 SARS-CoV-2 RNA PCR Not Detected Comment: This result should be interpreted in combination with the clinical observations, patient history and epidemiological information. For testing of asymptomatic individuals, assay performance characteristics and clinical utility have not been evaluated. Testing for SARS-CoV-2 (Severe acute respiratory syndrome coronavirus 2, formerly known as 2019 novel coronavirus or 2019-nCoV) to aid in the diagnosis of COVID-19 is performed using the Simplexa COVID-19 Direct Assay by [employer] as authorized by the FDA issued Emergency Use Authorization (EUA). This assay is intended for In-vitro Diagnostic (IVD) use with nasopharyngeal swabs collected from individuals meeting the CDC criteria for testing. The assay is performed based on the instructions for use and additional guidance provided by the FDA. Testing is performed in the Microbiology Laboratory within the Department of Pathology and Laboratory Medicine at [facility], certified under the Clinical Laboratory Improvement Amendments of 1988 (CLIA), 42 U.S.C. section 263a, to perform high complexity tests. Assay performance has been verified according to clinical laboratory regulatory requirements. Test results are provided above. A result of Not Detected indicates that the viral RNA target is not present but does not preclude SARS-CoV-2 infection. False negative results may occur if a specimen is improperly collected, transported or handled; if amplification inhibitors are present; or if inadequate numbers of viral particles are present in the specimen. A result of Detected suggests a current or recent infection and the patient is presumed to be infected. Positive and negative predictive values for this test are highly dependent on disease prevalence. A result of Invalid indicates the inability to conclusively determine the presence or absence of SARS-CoV-2 RNA in the sample which can be due to a variety of factors. Recollection is recommended in the case of an invalid result. CDC COVID-19 criteria for testing on human specimens and clinical management guidance information are available at the CDC Coronavirus Disease 2019 (COVID-19) webpage under Information for Healthcare Professionals (https://www.cdc.gov/coronavirus/2019-ncov/hcp/index.html). Additional information about this and other EUA tests can be found in provider and patient fact sheets at the following FDA website: https://www.fda.gov/medical-devices/gpcsjzwmehp-kgujzzl-1969-uvhoh-28-ythnbfhrg- xjv-amjixubevedbjo-iwdwccu-devices/uvrwx-onibqbhggot-luks SARS-CoV-2 Source PLANT SUPERVISOR Swab Lower Respiratory Culture Sputum Induced [[id number]] Collected: 08/15/22 0740 Lab Status: Final result Specimen: Sputum Induced Updated: 08/17/22 1015 Lower Respiratory Culture Rare normal upper respiratory wiley Gram Stain -- Many Neutrophils Few squamous epithelial cells Rare mixed bacterial morphotypes suggestive of normal upper respiratory wiley Blood culture [[id number]] Collected: 08/15/22 0110 Lab Status: Final result Specimen: Blood Updated: 08/20/22 0701 Blood Culture No growth at 5 days. MRSA PCR Screen ([facility]/CGP/APD/NLH) [[id number]] Collected: 08/15/22 0050 Lab Status: Final result Specimen: Nasopharyngeal Swab Updated: 08/17/22 1419 MRSA Result Negative MRSA Interp -- Methicillin-resistant Staphylococcus aureus (MRSA) is NOT DETECTED The MRSA target DNA sequences (mec and SCC) were not detected within the acceptable ranges using the Xpert MRSA NxG on the GeneXpert Dx System ([employer]). This suggests the absence of MRSA in the patient specimen submitted for testing. This test is cleared by the U.S. Food and Drug Administration for clinical use and its performance characteristics have been verified by the [facility] at [facility]. This result does not rule out the presence of any other organisms. Rare false negative results may occur if MRSA is present at low concentrations with much higher concentrations of other organisms including MRSE or S. aureus with an empty SCC cassette. Comment: [VERIFIED DATE]08.17.22 Verified By:Shannon Smiley (Electronic Signature) Blood culture [[id number]] Collected: 08/14/22 2355 Lab Status: Final result Specimen: Blood Updated: 08/20/22700 Blood Culture No growth at 5 days. Imaging/Diagnostics: Results for orders placed or performed during the hospital encounter of 08/14/22 XR Chest One View (Exam End: 08/15/2022 1:00 AM) Impression FINDINGS/IMPRESSION: * Moderate pulmonary edema. * No confluent airspace opacity otherwise seen. * Cannot exclude small pleural effusions. * Cardiomediastinal contours appear within normal limits. * Endotracheal tube tip projects 3.8 cm above the consuelo. * RIGHT neck central catheter, distal catheter coiled over the region of the RIGHT ventricle and pulmonary trunk. Thank you for letting us participate in the care of this patient. If you are a health care provider and have any questions regarding this report, please contact the number below. For patients who have questions please contact the health acute care physician that requested your imaging first. Abdomen 1 view (Generic) (Exam End: 08/15/2022 8:33 AM) Impression The enteric tube sidehole is not definitively subdiaphragmatic. Recommend advancement. Preliminary report signed by: Carlos Wolff at 08/15/2022 9:00 AM I have personally reviewed the image(s) and the resident's interpretation and agree with the findings, Liliane Adams MD at 08/15/2022 9:05 AM Thank you for letting us participate in the care of this patient. If you are a health care provider and have any questions regarding this report, please contact the number below. For patients who have questions please contact the health acute care physician that requested your imaging first. Electronically signed by: Liliane Adams MD, [facility] ([phone]), at 08/15/2022 9:05 AM XR Chest One View (Exam End: 08/15/2022 1:14 AM) Impression FINDINGS/IMPRESSION: * RIGHT neck central catheter redemonstrated terminating over the region of the pulmonary trunk, now uncoiled distally although the tip is looped. * Moderate pulmonary edema redemonstrated. * ET tube projects similar. Thank you for letting us participate in the care of this patient. If you are a health care provider and have any questions regarding this report, please contact the number below. For patients who have questions please contact the health acute care physician that requested your imaging first. Abdomen 1 view (Generic) (Exam End: 08/15/2022 6:38 AM) Impression Nonspecific/nondiagnostic appearance of the abdomen, with large stool burden in the RIGHT hemiabdomen and pelvis. Thank you for letting us participate in the care of this patient. If you are a health care provider and have any questions regarding this report, please contact the number below. For patients who have questions please contact the health acute care physician that requested your imaging first. Chest One View (Exam End: 08/16/2022 10:31 AM) Impression PA catheter has a persistent loop near the tip, similar to the prior comparison study. Improved pulmonary edema. Thank you for letting us participate in the care of this patient. If you are a health care provider and have any questions regarding this report, please contact the number below. For patients who have questions please contact the health acute care physician that requested your imaging first. Electronically signed by: Alfonso Adams MD, [facility] ([phone]), at 08/16/2022 10:[address] Head wo Contrast (Generic) (Exam End: 08/16/2022 10:44 PM) Impression No acute intracranial abnormality and no change from prior Thank you for letting us participate in the care of this patient. If you are a health care provider and have any questions regarding this report, please contact the number below. For patients who have questions please contact the health acute care physician that requested your imaging first. Electronically signed by: Moustapha Correa MD, [facility] ([phone]), at 08/16/2022 11:19 PM XR Abdomen 1 view (Generic) (Exam End: 08/17/2022 12:09 PM) Impression Status post Dobbhoff tube placement with catheter tip terminating at the approximate position of greater curvature. I have personally reviewed the image(s) and the resident's interpretation and agree with the findings, Jenn iPna MD at 08/17/2022 2:31 PM Thank you for letting us participate in the care of this patient. If you are a health care provider and have any questions regarding this report, please contact the number below. For patients who have questions please contact the health acute care physician that requested your imaging first. Head wo Contrast (Generic) (Exam End: 08/18/2022 3:14 PM) Impression No acute intracranial process. Thank you for letting us participate in the care of this patient. If you are a health care provider and have any questions regarding this report, please contact the number below. For patients who have questions please contact the health acute care physician that requested your imaging first. Electronically signed by: Antonio Jordan MD, [facility] ([phone]), at 08/18/2022 3:18 PM XR Chest One View (Exam End: 08/19/2022 12:30 PM) Impression 1. Increased bibasilar airspace opacities compared to radiograph 08/16/2022, concerning for an infectious/inflammatory process. A component of edema not excluded. 2. Overall decreased pulmonary edema. I have personally reviewed the image(s) and the resident's interpretation and agree with the findings, Alan De Guzman MD at 08/19/2022 3:14 PM Thank you for letting us participate in the care of this patient. If you are a health care provider and have any questions regarding this report, please contact the number below. For patients who have questions please contact the health acute care physician that requested your imaging first. Electronically signed by: Alan De Guzman MD, [facility] ([phone]), at 08/19/2022 3:14 PM MRI Brain wo Contrast (Exam End: 08/19/2022 10:15 PM) Impression No acute infarction, mass or mass effect. Thank you for letting us participate in the care of this patient. If you are a health care provider and have any questions regarding this report, please contact the number below. For patients who have questions please contact the health acute care physician that requested your imaging first. Chest for Verifying Vascular Access PICC Placement At Bedside (Exam End: 08/19/2022 4:36 PM) Impression PICC tip is in the superior vena cava above the right atrium. Thank you for letting us participate in the care of this patient. If you are a health care provider and have any questions regarding this report, please contact the number below. For patients who have questions please contact the health acute care physician that requested your imaging first. Electronically signed by: Alan De Guzman MD, [facility] ([phone]), at 08/19/2022 4:[address] Hip w Contrast Left (Exam End: 08/20/2022 11:04 PM) Impression 1. Uncomplicated left femoral neck ORIF with unchanged postoperative alignment. 2. Moderate skin thickening and subcutaneous stranding about the lateral left hip with lateral left thigh intramuscular edema and fascial thickening. These findings are nonspecific and may be seen in the routine postoperative setting. Underlying soft tissue infection with infectious or inflammatory myositis may also have this appearance. Correlation with physical examination, clinical symptoms, and laboratory findings is recommended. 3. 2.3 x 1.6 x 1.8 cm focus of more coalescent fluid attenuation centered in the subcutaneous fat of the posterolateral thigh roughly at the level of the proximal femoral fixation screw heads. There is no rim-enhancing to suggest a mature, organized abscess at this time. However, this finding could represent phlegmon in appropriate clinical context, or it could represent a postsurgical collection, the contents of which may be sterile or infected. 4. There is a rectal tube in place. However, there remains a large stool ball in the rectum with free fluid versus coalescent edema on both the anterior and posterior margins of the distended rectum. In appropriate clinical context, these findings could represent proctocolitis or stercoral colitis. I have personally reviewed the image(s) and the resident's interpretation and agree with the findings, Aicha Chowdhury MD at 08/21/2022 9:34 AM Thank you for letting us participate in the care of this patient. If you are a health care provider and have any questions regarding this report, please contact the number below. For patients who have questions please contact the health acute care physician that requested your imaging first. Electronically signed by: Aicha Chowdhury MD, [facility] ([phone]), at 08/21/2022 9:[address] Chest w Contrast (Exam End: 08/20/2022 11:04 PM) Impression 1. Multifocal lower lobe predominant consolidative opacities with additional upper lobe opacities consistent with multifocal pneumonia. Compared to the prior CT of 08/12/2022 the number and size of the opacities has decreased. Recommend follow-up imaging in 3-6 months to document complete resolution. 2. New small, sub-1 cm early cavitation of multiple opacities predominantly within the posterior left upper lobe and left lower lobe. 3. New curvilinear splenic lesions could represent infarct versus late arterial phase splenic arterial opacification. Thank you for letting us participate in the care of this patient. If you are a health care provider and have any questions regarding this report, please contact the number below. For patients who have questions please contact the health acute care physician that requested your imaging first. Hip 2-3 Views Left (Exam End: 08/22/2022 12:19 AM) Impression No radiographic evidence of infection. Thank you for letting us participate in the care of this patient. If you are a health care provider and have any questions regarding this report, please contact the number below. For patients who have questions please contact the health acute care physician that requested your imaging first. Electronically signed by: Viktor Cervantes MD, [facility] ([phone]), at 08/22/2022 12:43 PM XR Pelvis (Generic) (Exam End: 08/22/2022 12:19 AM) Impression No radiographic evidence of infection status post left hip ORIF. Thank you for letting us participate in the care of this patient. If you are a health care provider and have any questions regarding this report, please contact the number below. For patients who have questions please contact the health acute care physician that requested your imaging first. Electronically signed by: Richard Billings MD, [facility] ([phone]), at 08/22/2022 10:[address] Angiogram Coronary Arteries (Exam End: 08/27/2022 8:58 AM) Impression Coronary calcium score of 0, consistent with no detectable calcified atherosclerotic plaque burden. No evidence of stenosing soft plaque on the coronary CT arteriogram. CAD RADS 0 Ongoing bilateral pulmonary infectious/inflammatory changes with persistent consolidative opacity especially in the left lower lobe. This could represent a multifocal pneumonia. Recommend follow-up CT in 3 months to assess for resolution. Thank you for letting us participate in the care of this patient. If you are a health care provider and have any questions regarding this report, please contact the number below. For patients who have questions please contact the health acute care physician that requested your imaging first. Electronically signed by: Arlette Mays MD, [facility] ([phone]), at 08/27/2022 11:[address] Chest wo Contrast (Generic) (Exam End: 08/27/2022 8:58 AM) Impression Stable findings of multifocal pneumonia. No interval abnormality. Thank you for letting us participate in the care of this patient. If you are a health care provider and have any questions regarding this report, please contact the number below. For patients who have questions please contact the health acute care physician that requested your imaging first. Electronically signed by: MINH QUIROGA MD, [facility] ([phone]), at 08/27/2022 10:48 AM XR Fluoro Barium Swallow (Modified/Video Swallow Pharynx) (Exam End: 08/31/2022 11:23 AM) Impression Abnormal modified barium swallow as above. Please see speech pathology report for further discussion. Thank you for letting us participate in the care of this patient. If you are a health care provider and have any questions regarding this report, please contact the number below. For patients who have questions please contact the health acute care physician that requested your imaging first. Electronically signed by: Aron Billings MD, [facility] ([phone]), at 08/31/2022 12:02 PM XR Fluoro Barium Swallow (Modified/Video Swallow Pharynx) (Exam End: 09/04/2022 10:25 AM) Impression 1. Penetration of the airway and aspiration with thin liquids, especially with rapid sips of thin barium. 2. Flash penetration of nectar thick liquids from a straw. 3. Reflux of residual barium within the esophagus on multiple swallows. I have personally reviewed the image(s) and the resident's interpretation and agree with the findings, Alfonso Adams MD at 09/04/2022 10:57 AM Thank you for letting us participate in the care of this patient. If you are a health care provider and have any questions regarding this report, please contact the number below. For patients who have questions please contact the health acute care physician that requested your imaging first. Electronically signed by: Alfonso Adams MD, [facility] ([phone]), at 09/04/2022 10:57 AM XR Abdomen 1 view (Generic) (Exam End: 09/04/2022 9:47 PM) Impression 1. On the chest radiograph at 2136 hours the enteric tube projects over the mid esophagus. On the abdominal radiograph at 2139 hours the enteric tube now projects below the diaphragm with tip partially visualized projecting over the left mid abdomen. 2. Lower lobe predominant patchy and reticular airspace opacities consistent with sequela of multifocal pneumonia. The appearance is improved compared to prior radiograph. Thank you for letting us participate in the care of this patient. If you are a health care provider and have any questions regarding this report, please contact the number below. For patients who have questions please contact the health acute care physician that requested your imaging first. Chest One View (Exam End: 09/04/2022 9:47 PM) Impression 1. On the chest radiograph at 2136 hours the enteric tube projects over the mid esophagus. On the abdominal radiograph at 2139 hours the enteric tube now projects below the diaphragm with tip partially visualized projecting over the left mid abdomen. 2. Lower lobe predominant patchy and reticular airspace opacities consistent with sequela of multifocal pneumonia. The appearance is improved compared to prior radiograph. Thank you for letting us participate in the care of this patient. If you are a health care provider and have any questions regarding this report, please contact the number below. For patients who have questions please contact the health acute care physician that requested your imaging first. Chest One View (Exam End: 09/05/2022 9:24 AM) Impression 1. Reposition enteric tube now extending below the diaphragm and included [id number]. 2. Similar appearance of elevated right hemidiaphragm and linear/patchy bibasilar opacities which may represent atelectasis or possibly aspiration. Thank you for letting us participate in the care of this patient. If you are a health care provider and have any questions regarding this report, please contact the number below. For patients who have questions please contact the health acute care physician that requested your imaging first. Electronically signed by: AUDI PERDOMO MD, [facility] ([phone]), at 09/05/2022 3:43 PM XR Abdomen 1 view (Generic) (Exam End: 09/10/2022 1:04 AM) Impression Dobbhoff with tip at the level of the pyloric region. I have personally reviewed the image(s) and the resident's interpretation and agree with the findings, Camille Garcia MD at 09/10/2022 1:16 AM Thank you for letting us participate in the care of this patient. If you are a health care provider and have any questions regarding this report, please contact the number below. For patients who have questions please contact the health acute care physician that requested your imaging first. Electronically signed by: Camille Garcia MD, [facility] ([phone]), at 09/10/2022 1:16 AM Medications: Scheduled: ??? buPROPion 100 mg Per NG tube Daily ??? melatonin 6 mg Per NG tube Nightly ??? metoprolol tartrate 12.5 mg Per NG tube 2 times per day ??? QUEtiapine 100 mg Per NG tube Nightly ??? sacubitriL-valsartan 1 tablet Per NG tube BID ??? valproic acid 300 mg Per NG tube Q6H ??? insulin lispro 1-10 Units Subcutaneous Q4H LAZARUS ??? miconazole nitrate Topical (Top) BID ??? lidocaine 3 patch Transdermal Q24H ??? ergocalciferoL (vitamin D2) 50,000 Units Per NG tube Weekly ??? enoxaparin 40 mg Subcutaneous Daily ??? atorvastatin 80 mg Per NG tube QPM ??? folic acid 1,000 mcg Per NG tube Daily ??? ferrous sulfate 300 mg Per NG tube Every Other Day ??? chlorhexidine 15 mL Oral BID ??? pantoprazole 40 mg Intravenous BID ??? sodium chloride 0.9 % (flush) 5 mL Intravenous BID ??? thiamine 100 mg Intravenous Daily Continuous: ??? dextrose 5% lactated ringers 100 mL/hr (09/10/22 0241) ??? tube feeding diet Stopped (09/08/222025) PRN: prochlorperazine, ondansetron, diclofenac, acetaminophen, polyethylene glycoL, senna, bisacodyL, sodium chloride 0.9 % (flush), lidocaine, glucose 40% oral geL OR dextrose 10% OR glucagon ASSESSMENT and PLAN: Ishan Irving is a 62 y.o. 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.5 years) c/b chronic pancreatitis, iron deficiency anemia,??GE RD??c/b??esophagitis &??Farrell's esophagus, who was admitted to [facility] on 08/14/2022 (now on Hospital Day #23) for mixed shock and stress cardiomyopathy who transferred to Hospital Medicine due to persistent dysphagia. 09/10/22 Ishan is doing well today and is happy to be in a different room. Given recent episode of prior aspiration event and ongoing dysphagia, attempted PEG placement with surgery. However, during the procedure general surgery was unable to pass the EGD scope into the stomach secondary to a tight esophageal stricture. Therefore, will involve IR for fluoroscopic G-tube placement. We will also reengage GI given likely worsening esophageal stricture. 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 Today's plan: - Continue tube feeds - Diabetes Team aware and titrating insulin accordingly - Surgery could not place PEG tube due to esophageal stricture - IR involved for fluoroscopic G-tube placement - We will reengage GI given presence of likely worsening esophageal stricture # Bipolar Disorder - Continue Seroquel 100mg nightly for now, patient and want it uptitrated before discharge - C/w valproate 300mg q6h - [employer] following, NPO at present - Psychiatry Consult, appreciate recs, recommended starting Wellbutrin - Continue Wellbutrin 100mg IR as other formulations cannot be crushed for NG # Medication-induced Parkinsonism # Dysphagia - Continue tube feeds - Diabetes Team aware and titrating insulin accordingly - Surgery could not place PEG tube due to esophageal stricture - IR involved for fluoroscopic G-tube placement # Acute hypoxic respiratory failure, resolved # Bilateral airspace opacities/multifocal pneumonia, resolved -??Respiratory support with LFNC PRN - Antibiotics: Status post zosyn for pneumonia, stopped per ID - Fungitell and Fungal Cx positive, no change in management at this time per ID - CT Chest showed persistent pneumonia; ID followed, patient completed course of antibioitics ?? # Distributive Shock, resolved # NSTEMI Type I vs Type II, resolved # HFrEF (EF 25%) #Stress Cardiomyopathy - Will not perform LHC given results of CTA coronary arteries. - ASA 81mg - Entresto 24-26 1 tab BID - Metoprolol 25mg daily, starting 08/30 as tartrate for Dobhoff - Spironolactone 12.5mg QD (held starting 08/30 in setting of NPO status) - Empagliflozin 10mg as part of GDT - She will need a repeat TTE at some point to assess for resolution/improvement of presumed stress induced cardiomyopathy - Mg >1, K >4 ?? # GERD c/b Farrell's esophagus & esophagitis # Constipation- resolved # Rectal wall edema 2/2 stool ball - Has Miralax, senna, dulcolax PRN ordered - Continue home pantoprazole 40 BID - We will reengage GI given presence of likely worsening stricture ?? # Insulin-dependent diabetes -??Diabetes Management consulted, appreciate recs # Mixed JERRICA and ACD - Oral iron supplementation started 08/21 > s/p 1 dose of Venofer - Ferritin, Iron, TIBC resulted; mixed picture - Transfuse for Hb <8 - S/p 1u pRBC 08/22 ?? # Septic shock # Bilateral airspace opacities/multifocal pneumonia # L Hip Fluid Collection # Subcentimeter left posterior upper lobe cavitary lesions - Infectious work-up initially did not yield any clear causative organisms - S/p BAL 08/21 without any growth to date. - IR, orthopedic surgery consulted for evaluation of L hip fluid collection. No intervention/drainable target. - Stopped zosyn as per ID (08/14- 08/23) - Fungal testing positive no change in management at this time per ID #Housekeeping: DVT PPx: LMWH GI PPx: N/a Diet: NPO diet (Give Meds) Lines: PICC Line - Double Lumen 08/19/22 1655 basilic vein (medial side of arm), right 5 Fr (Active) Number of days: 21 D/c planning: Acute rehab Code status: Attempt Cardiopulmonary Resuscitation - Inpatient Chau Keith MD Internal Medicine PGY1 Medicine Team: Jose Juan, Pager #[phone] Date: 09/10/2022 Associated attestation - Molina Flores MD - 09/11/2022 12:02 PM EDT Attending Attestation and Certification Please see Chau Keith MD's note for details of the patient history of presentation and data. I have discussed, reviewed and agree with the documented History, Physical findings, Assessment and Plan of care. I have examined the patient myself and personally reviewed all studies. In addition, I certify thatI am a [facility] credentialed attending provider with admitting privileges and that the patient meets or has met medical necessity to require an inpatient IPI level of care meeting a minimum of two midnights or is on the [facility] inpatient only procedure list (status C) due to: mixed shock , stress cardiomyopathy, aspiration pneumonia with underlying persistent dysphagia 2/2 stenosis at the Farrell esophagus site. Pt awaiting GJ tube placement per general surgery team recommendations. * Chaka Ortiz MD - 09/10/2022 5:26 AM EDT Surgery Post Op Check Operation/Procedure: 09/09/2022 - 09/10/2022 Surgeon(s) and Role: * Audi Russ MD - Primary * Ede De Dios MD - Resident - Assisting: Procedure(s): EGD, UPPER GI ENDOSCOPY (WRVU 2.09) Findings: - Procedure was performed in the OR - Flexible esophagogastroduodenoscope was utilized for direct internal procedural guidance and visualization - A tight stricture was encountered at ~25 cm. Mucosa was grossly inflamed at this location. The opening measured ~5 mm. The EGD scope could not traverse. A bronchoscope set up with oxygen flow couldnot traverse. The PEG snare could be passed through but the scope would not follow over the wire. - SBFT was replaced and bridled. The EGD scope was used to visualize passage into the stricture opening. - EBL: nil - wound class: 2 (clean/contaminated) ID: Ishan Irving is a 62 y.o. female status post above procedure. Subjective/Events: Patient denies nausea, vomiting, chest pain, shortness of breath, numbness/weakness. Pain well controlled. Offers no complaints. Objective: Temp: [36.4 ??C (97.5 ??F)-36.5 ??C (97.7 ??F)] Heart Rate: [86-94] Resp: [17-28] BP: (92-117)/(53-59) SpO2: [90 %-100 %] Heart Rate from SpO2: [82 bpm-89 bpm] I/O last 3 completed shifts: In: 1450 [I.V.:1010; NG/GT:260] Out: 2100 [Urine:2100] I/O this shift: In: 2637 [I.V.:2547; NG/GT:90] Out: 200 [Urine:200] Physical Exam GEN: resting comfortably in bed, conversant, NAD HEENT: normocephalic, atraumatic. DHT in place. CV: regular rate CHEST: comfortable work of breathing on 1L NC ABD: soft, non tender, nondistended. EXTR: WWP, moving all extremities spontaneously, no edema NEURO: awake and alert, grossly intact, nonfocal, follows commands Assessment and Plan: Ishan Irving is a 62 y.o. female status post above procedure, currently in stable conditionand recovering well - Patient is doing well postoperatively - Hemodynamically stable - Pain adequately controlled - Continue post-op plan per primary team. Chaka Ortiz MD 09/10/2022 General Surgery * Rober Bergeron RN - 09/10/2022 12:54 AM EDT 0043- Pt arrived in PACU 6L simple mask Coughing suctioned clear sputum, VSS, pain tolerable, xray paged for KUB 0105- KUB done * Wilda Blankenship RD - 09/09/2022 1:09 PM EDT Nutrition Progress Note Ishan Irving is a 62 y.o.??female??with h/o bipolar, DM, EtOH, esophagitis, who presented to [facility] 3 days ago after being found unresponsive at home.?Patient found to have likely pneumonia +/- aspiration, newly reduced EF. Reason for Assessment: Tube Feeding, Follow-up Nutrition Recommendations: S/p PEG placement, resume current TF: Cyclic Peptamen AF at 90ml/hr for 14 hrs from [id number] (pended). At goal, this will provide: Peptamen AF Total Volume Per Day: 1260 mL Scoops of Protein: 0 Calories per Day: 1512 Protein per Day: 96 g Free Water mL per Day: 1023 % RDI: 101 % Monitor hydration status on above TFs as they are concentrated. Pt may need additional fluids depending on IVFs, med flushes, p.o. Intake, etc. Po diet per [employer] (recs 09/04 NPO s/p MBS) Continue 50,000 units vitamin D weekly; 1000 mcg folic acid and 100 mg thiamine daily. Current Nutrition Regimen: Active Orders Diet NPO diet (Give Meds) Frequency: Effective Now Number of Occurrences: Until Specified All Active TF Orders: Tubefeeding Orders (From admission, onward) Start Dose/Rate Route Frequency Ordered Stop 09/07/22 1545 tube feeding diet 1,260 mL 90 mL/hr Per NG tube Cyclic-(Tube feed) 09/07/22 1445 Cyclic Peptamen AF at 110ml/hr for 12hrs from 2276-2582 (see updated order above as of 09/07). Average tube feeding provision over past 3 days: I/o not completed but from 09/07- 09/08 appears to havegotten full dose Tolerance or barriers to meeting needs: holds due to PEG scheduling Assessment: Lab Results Component Value Date NA 140 09/09/2022 K 4.3 09/09/2022 CL 102 09/09/2022 CO2 28 09/09/2022 BUN 24 (H) 09/09/2022 CREATININE 0.56 (L) 09/09/2022 ESTGFR 103 09/09/2022 MAGNESIUM 0.86 09/09/2022 CALCIUM 10.1 09/09/2022 PHOS 4.2 09/09/2022 AST 39 (H) 08/20/2022 ALT 20 08/20/2022 ALKPHOS 213 (H) 08/20/2022 BILITOT <0.2 (L) 08/20/2022 BILIDIR 0.1 08/20/2022 TRIG 127 08/29/2022 CRP 19.4 (H) 08/21/2022 HA1C 6.2 (H) 08/15/2022 25OHVITD 12 (L) 08/24/2022 IRON 25 (L) 08/21/2022 Lab Results Component Value Date POCGLU 167 09/09/2022 POCGLU 150 09/09/2022 POCGLU 140 09/09/2022 POCGLU 116 09/08/2022 POCGLU 182 09/08/2022 POCGLU 119 09/08/2022 Patient Lines/Drains/Airways Status Active Nutritional LDAs Name Placement date Placement time Site Days Naso/Oral Tube 09/04/222049 small bore;nasogastric right nostril 09/04/222049 right nostril 5 PICC Line - Double Lumen 08/19/22 165 basilic vein (medial side of arm), right 5 Fr 08/19/22 1655 -- 21 External Catheter 08/23/22 1100 08/23/22 1100 -- 17 Physical Findings Gastrointestinal: feeding tube Oxygen Therapy / Airway Device: None (Room air) Shift Pressure Injury Prevention Occiput: No Injury Thoracic Spine: No Injury Sacral: No Injury Ischial - left: No Injury Ischial - right: No Injury Heel - left: No Injury Heel - right: No Injury Elbow - left: No Injury Elbow - right: No Injury Device Sites: O2 sat monitor, IV sites, ECG Leads, NGT Other Sites: EFC Last Bowel Movement: 09/04/22 Intake/Output Summary (Last 24 hours) at 09/09/2022 1309 Last data filed at 09/09/2022 1208 Gross per 24 hour Intake 270 ml Output 800 ml Net -530 ml Relevant medications: Vitamin D2, ferrous sulfate, folic acid, insulin:correction, protonix, thiamin Anthropometrics: Admit Weight: 69 kg Estimated body mass index is 27.75 kg/m?? as calculated from the following: Height as of 08/19/22: 152.4 cm (5'). Weight as of this encounter: 64.5 kg (142 lb 1.6 oz). [place] Body Weight (IBW) (kg): 45.45 Usual Body Weight: 70.3 kg (155 lb) Wt Readings from Last 10 Encounters: 09/09/22 64.5 kg (142 lb 1.6 oz) 08/19/22 73.1 kg (161 lb 2.5 oz) 07/03/22 69.9 kg (154 lb) 03/31/22 74.4 kg (164 lb) 02/12/22 78.7 kg (173 lb 9.6 oz) 09/23/21 78.5 kg (173 lb) 03/01/20 79.4 kg (175 lb) 11/22/18 80.3 kg (177 lb) 12/13/14 86.5 kg (190 lb 12.8 oz) 03/20/14 94 kg (207 lb 3.7 oz) Patient Vitals for the past 168 hrs: Weight 09/09/22 0354 64.5 kg (142 lb 1.6 oz) 09/08/22 0621 64.8 kg (142 lb 14.4 oz) 09/07/22 0617 64.1 kg (141 lb 5 oz) 09/04/22 0554 68.9 kg (152 lb) 09/03/22 0600 69.9 kg (154 lb) Weight Source: Bed Estimated / Assessed Needs: Fluid Requirements (mL/day): 2562 mL Olga Kcal / K - 1737.5 Kcal (20 Kcal/Kg - 25 Kcal/Kg) Estimated Protein Needs: 83.4 - 104.25 g (1.2 g/Kg - 1.5 g/Kg) Nutrition intake and intake history / interview: 09/09: no tolerance concerns per RN today. TF on hold due to possible for PEG today 09/07: TF f/u - nausea and vomiting noted yesterday, TF held. Pt seen at bedside and reports feeling bloated. Per RN, pt w/ another episode of emesis this afternoon (~75 mL). Updated TF order pended - increasing cyclic feeds to 14 hours for reduced rate, ~60 mL less total volume that previous order, still meeting calorie and protein goals. Wt hx reflects 9# wt loss x 3 days - question accuracy. 09/03: Second MBS scheduled for Wednesday. Pending results will transition to oral diet or to a standard formula. Wt stable and tolerating formula so far. 08/31: Pending MBS results diet will advance or will continue w/ TF. No intolerance noted and pt notcurrently experiencing hunger. Wt trending down, below admit wt and UBW, will increase TF provision. 08/27: Pt had 7 BM on 08/25 r/t liquid tylenol, d/c per this proposal lead writer's request as liquid tylenol acts as a purgative. BM have slowed and formed since then. Adjusted EN to allow for pt to lay flat at night and increased kcal as pt is now floor status. 08/24: Phos continues to trend low but above 2.0. Pt reports no feelings of hunger at this time, will continue EN at current rate. Wt trending down, but appears consistent w/ wts from 06/2022. Pt does have some wt loss since 02/2022 but is not clinically significant. Will continue to monitor. 08/21: Phos continues to trend low but above 2.0 today (2.4). More responsive than in previous days,but still intubated. Attempting SBT today. Wt relatively stable at this time. Had 1st BM since admit 08/20, will continue to monitor BM and consistency. If stool remain liquid should dc liquid tylenolas it can cause loose stools. 08/18: Phos <2.0 since 08/18 w/ 60mmol of repletion since then, phos 1.4 this AM. EN advanced to goal this AM w/o signs of intolerance. Wt up 4kg since admission and intermittently receiving diuretics, -0.5L since admission 08/17: TF recs as above. Nutrition Focused Physical Exam: Not performed Malnutrition Diagnosis: Not identified (NOLAN Mendez J Parenteral Enteral Nutr. 2011; 36(3): 273-83) Nutrition to continue to follow up while inpatient THANKS Wilda Blankenship RD Pager #:[phone] * Eliseo Cookmy Yesi, OT - 09/09/2022 9:30 AM EDT Occupational Therapy Treatment Note Treatment Number OT: 6 Patient Dx: Ishan Irving??is a 62 y.o.??female??admitted on 08/14/2022??with a medical history notable for??recent L femoral neck fracture,??bipolar disorder, resolving medication-induced Parkinsonism, insulin- dependent diabetes mellitus,??hx of alcohol use disorder (reported to be in remission for 1.5 years) c/b chronic pancreatitis, iron deficiency anemia,??GERD??c/b??esophagitis &??Farrell's esophagus??presenting in transfer from [facility], suspected to be in cardiogenic shock and foundto be in mixed shock with concern for stress cardiomyopathy.??She is s/p ORIF left femoral neck frac ture. ?? Precautions/Special Considerations: aspiration, skin breakdown, falls, LLE WBAT, Dobhoff tube, Mcrae Interval History: Yesterday: 09/08 - Doing okay. - Bumped from OR schedule. ?? Overnight: 09/08 - No acute events overnight. - Paged at 0015 for soft BP, added mivf ?? Today AM: 09/09 - Continues to report mild nausea without any vomiting. - Otherwise denies any other acute medical complaints. ?? S: Are you going to hold onto me?- pt with high anxiety around transfering O: Patient seen for skilled OT treatment, and demonstrated the following: ?? Pt in bed upon OT arrival. Using Purewick to urinate. OT reminded pt that there is a commode that could be placed at bedside. ?? Supine to sit at EOB independently using railings for self-assist ?? Sit to stand with Min A of 2 with FWW. Did not come to full stand on first attempt. Anxious and fearful of falling. Crying out I can't! I can't! I can't! and sitting immediately after buttocks left bed ?? 1:1 provided and pt made second attempt to stand ?? Pt stood with Min A of 2 with FWW and took 3-4 steps toward recliner before sitting quickly on the edge of the recliner. ?? Scoot back in chair with min A ?? Discussed safety concern with pnt sitting without warning ?? Oral-hygiene completed in sitting. More thorough today. ?? Brushed hair while seated with assist to style. More thorough with this task as well ?? Cognition: ?? Behavior / Mood: alert, cooperative and flat affect, anxious prior and during transfer, tearful,admits to feeling discouraged by upcoming PEG placement ?? Alert and oriented to: person, place, time and situation ?? Follows commands: 1 step and 100% of the time, does not attend to cues when anxious ?? Attention: WFL ?? Safety awareness: mild impairment ?? Vision: Glasses have been brought in by spouse; wears corrective lenses at all times ?? Endurance: Poor. Fatigues quickly ?? Vitals: VSS Pain: No c/o at rest, spouse points out small blood blister on L anterior [place]. Pt reports this area is sore with palpation Education: Pt/family/caregiver education ongoing regarding: Transfers, ADL and Functional Mobility. Staff Communication: Patient status, treatment, and mobility recommendations discussed with nursing/other staff. ASSESSMENT: Pt continues to demonstrate anxiety and fear during transfers which is impacting safety, though this behavior is not demonstrated consistently with all staff. Pt performed a bed to recliner transfer with min A of 2 for safety with pt sitting prematurely on edge of chair and then participated in grooming tasks. Pt with high risk for falls. It may be helpful to discontinue daytime use of Purewick to encourage use of commode and increase frequency of transfers to improve pt comfort with this activity. Pt will benefit from ongoing therapeutic interventions to achieve pt's and therapy goals Equipment needs at discharge: to be determined Anticipated Discharge Disposition: acute rehabilitation facility Daily schedule / Staff Recommendations: ? ? Encourage use of coping & calming strategies ??? Give choices when possible to support feelings of autonomy ? ? Frequent orientation verbally & visually with calendars/clocks/whiteboard ? ? Keep glasses, hearing aides, etc within reach & offer to pt as appropriate ??? Facilitate a normal sleep-wake cycle ??? Provide brief, clear instruction and direction from one source at a time ??? Provide calming music, favorite TV programs, magazines or newspapers ??? Utilize upright chair position using bed features or transfer to recliner chair as appropriate with??mechanical lift? Encourage participation in ADL's by providing set up A on tray table and physical assist only as needed Occupational Therapy Goals: to be reached by 09/23/22 -Patient will complete toileting tasks (hygiene, clothing management, transfers)??with Mod A and??with AE, as needed -Patient will ambulate household distances??with Mod A and??with AD, as needed -Patient will complete UB/LB sponge bathing tasks??with Min A, while seated with AE, as needed (only UB bathing) Patient will complete grooming task (comb hair, brush teeth)??with supervision, seated EOB??(in supported sitting) Therapy Frequency (OT): 2-4 times/wk Total Minutes, Occupational Therapy: 37 (2 TA, [id number]) Pager: [phone] Alicia Cook, OT 09/09/2022 Occupational Therapy Rehabilitation Department * Gt Pyle, RN - 09/09/2022 8:00 AM EDT OUTCOME EVALUATION NOTE: OUTCOME SUMMARY: This RN received Ishan lying asleep in bed, awakened easily and not in apparent distress. AOx4 Blood pressure 131/63, pulse 82, temperature 36.4 ??C (97.5 ??F), temperature source Oral, resp. rate 16, height 152.4 cm (5'), weight 64.5 kg (142 lb 1.6 oz), SpO2 97 %. on RA PLAN MOVING FORWARD: Q4h VS and POC BG TF held pending potential PEG placement today IVF D/C planning per CM INDIVIDUALIZED FALL PREVENTION INTERVENTIONS: Patient-specific fall risk factors per assessment: Medical devices, generalized weakness, hospital environment Assistance: 2 assist, FWW Supervision: Arms reach, Hands on Surveillance: Bed locked in low position, call marshall within reach, purposeful hourly rounding, clutter free environment, bed/chair alarm on, family at bedside Patient-specific fall prevention interventions for sensory deficits provided: Yes CPG GOAL OUTCOME EVALUATION: Continue care plan as documented. Gt Pyle RN * Liz Farias MD - 09/09/2022 6:40 AM EDT General Surgery Consultation Note Date of Consultation: 09/09/2022 Consult Service: General Surgery History of Present Illness: Ishan Irving is a 62 y.o. 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.5 years) c/b chronic pancreatitis, iron deficiency anemia,??GE RD??c/b??esophagitis &??Farrell's esophagus, who was admitted to [facility] on 08/14/2022 (now on Hospital Day #21), and transferred to Hospital Medicine team from Cardiology on 08/30 for mixed shock withconcern for stress cardiomyopathy (Takotsubo Cardiomyopathy). Due to her history of GERD, and intubation during this hospital stay, she consequently suffered dysphagia, failing a modified barium swallow. Prior to the MBS, she had a Dobbhoff tube in place for enteral access. Enteral access is urgent within 24 hours for this patient because she experienced catatonic bipolar episodes during this hospitalization which only bupropion were able to alleviate, withno IV alternative. The patient reports that her last off tube was very uncomfortable and that she does not wish to repeat the experience. However she is amenable to PEG. She has a number of documented scopes for GERD but no documented surgeries. She is not on anticoagulation or steroids. 24 hr events. -NAEON - NPO Physical Exam: Last Set of Vitals and Range over past 24 hours: Last value Range last 24 hrs Temperature Temp: 36.4 ??C (97.5 ??F) Temp: [36.4 ??C (97.5 ??F)-36.8 ??C (98.2 ??F)] Heart Rate Heart Rate: 82 Heart Rate: [64-94] Blood Pressure BP: 105/51 BP: (90-131)/(47-63) Respiratory Rate Resp: 18 Resp: [16-18] SpO2 SpO2: 97 % SpO2: [93 %-97 %] BMI: Weight: 64.5 kg (142 lb 1.6 oz) (09/09/22 0354) BMI (Calculated): 31.77 BMI Classification: Obese Physical Exam General: NAD, resting comfortably HEENT: NCAT , DHT to right nare. CVS: RR Pulm: NWOB Abd: Non-distended, soft, nontender. Ext: WWP Neuro: Grossly intact to conversation with slowed affect Laboratory (Last 24 Hours): Recent Labs 09/09/22 0400 WBC 6.9 HGB 9.8* HCT 33.4* PLATELET 264 Lab Results Component Value Date INR 2.0 08/15/2022 Radiology: N/A Assessment: Ishan Irving is a 62 y.o. Female in need of durable enteral access as well as urgent enteral access for PO medications due to dysphagia. She was amenable to an NG tube to bridge her to a morepermanent solution next week as it appears her dysphagia will be chronic. NAEON. Recommendations: - planned for PEG today. Consult service will continue to follow patient. Discussed with Dr. Isidro Farias MD 09/09/2022 * Chau Keith MD - 09/09/2022 6:31 AM EDT Images from the original note were not included. Inpatient Hospital Medicine Progress Note 09/09/2022 Patient Name: ISHAN IRVING Date of : 1960 Age: 62 y.o. Hospital Admit Date: 08/14/2022 Hospital Day: 26 Inpatient Attending: Molina Flores MD PCP: Chris Stanley APRN ([phone]) ID: Ishan Irving is a 62 y.o. 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.5 years) c/b chronic pancreatitis, iron deficiency anemia, ??GERD??c/b??esophagitis &??Farrell's esophagus, who was admitted to [facility] on 08/14/2022 (now on Hospital Day #26) for mixed shock and stress cardiomyopathy who transferred to Hospital Medicine due to persistent dysphagia. 24 HOUR EVENTS & SUBJECTIVE: Yesterday: - Doing okay. - Bumped from OR schedule. Overnight: - No acute events overnight. - Paged at 0015 for soft BP, added mivf Today AM: - Continues to report mild nausea without any vomiting. - Otherwise denies any other acute medical complaints. OBJECTIVE: Vitals: Last value Range last 24 hrs Temperature Temp: 36.5 ??C (97.7 ??F) Temp: [36.5 ??C (97.7 ??F)-37 ??C (98.6 ??F)] Heart Rate Heart Rate: 67 Heart Rate: [64-94] Blood Pressure BP: 109/58 BP: (90-118)/(47-67) Art Line BP BP (Arterial Line): 111/70 BP (Arterial Line): -- MAP (NBP): [61 mmHg-88 mmHg] Respiratory Rate Resp: 16 Resp: [16-20] SpO2 SpO2: 94 % SpO2: [92 %-95 %] Oxygen Delivery Oxygen Therapy O2 Device: None (Room air) O2 Flow Rate (L/min): 2 L/min FiO2 (%): 21 % Reason for Oxygen: Patient currently on room air Intake/Output Summary (Last 24 hours) at 09/09/2022 0631 Last data filed at 09/09/2022 0355 Gross per 24 hour Intake 210 ml Output 550 ml Net -340 ml I/O last 3 completed shifts: In: 1413 [NG/GT:1058] Out: 1325 [Urine:1200; Emesis/NG output:125] Last Bowel Movement: 09/04/22 Body mass index is 27.75 kg/m??. Patient Vitals for the past 168 hrs: Weight 09/09/22 0354 64.5 kg (142 lb 1.6 oz) 09/08/22 0621 64.8 kg (142 lb 14.4 oz) 09/07/22 0617 64.1 kg (141 lb 5 oz) 09/04/22 0554 68.9 kg (152 lb) 09/03/22 0600 69.9 kg (154 lb) Admit wt: 69 kg Physical Exam: GENERAL: Awake, no acute distress, dobhoff in place w/tape HEENT: Anicteric, no conjunctival injection CV: RRR, no murmurs/rubs/gallops, 2+ radial/DP pulses PULM: Normal respiratory effort, CTA with good air entry bilaterally, coarse bibasilar breath sounds minimal ABDOMEN: Soft, non-tender, non-distended, no masses, no guarding EXTREMITIES: No lower extremity edema. No clubbing or cyanosis PSYCH/NEURO: morose affect, intact cognition, no tremor SKIN: Warm, dry, no rashes LABS: CBC: Recent Labs 09/09/220 09/08/220 09/07/220 09/06/220 09/05/22 0106 WBC 6.9 6.9 6.2 6.3 4.9 HGB 9.8* 9.8* 9.1* 8.6* 8.7* HCT 33.4* 32.6* 30.5* 29.0* 29.0* PLATELET 264 300 286 297 314 NEUTROABS 3.43 3.42 2.71 2.64 1.88 Chemistry: Recent Labs 09/09/220 09/08/22 0200 09/07/220 09/06/22 0100 09/05/22 0106 NA 140 142 138 139 140 K 4.3 4.6 4.6 4.3 3.8 CL 102 103 103 104 103 CO2 28 30 29 28 28 BUN 24* 25* 22* 21* 21* CREATININE 0.56* 0.52* 0.53* 0.49* 0.49* GLUCOSE 139 142 144 95 95 ANIONGAP 10 9 6 7 9 Recent Labs 09/09/220 09/08/22 0200 09/07/22 0030 09/06/22 0100 09/05/22 0106 CALCIUM 10.1 10.0 9.4 9.5 9.5 MAGNESIUM 0.86 0.90 0.86 0.81 0.91 PHOS 4.2 3.2 3.0 3.6 3.9 LFT's: Recent Labs 08/20/22 1400 08/15/22 0950 08/15/22 0305 BILITOT <0.2* <0.2* 0.2 BILIDIR 0.1 0.1 0.1 ALBUMIN 2.5* 2.4* 2.4* ALKPHOS 213* 102 99 ALT 20 12 13 AST 39* 21 25 Cardiac enzymes: Recent Labs 08/19/22 0120 08/14/22 2355 CK 32 -- PROBNP -- >35,000* Endocrine: Recent Labs 08/20/22 1400 08/15/22 0000 TSH 1.90 0.28 Recent Labs 08/15/22 0305 HA1C 6.2* CRP, Sed Rate Recent Labs 08/21/22 1200 CRP 19.4* SEDRATE >119* Lipids: Lab Results Component Value Date CHLPL 110 08/29/2022 HDL 34 08/29/2022 CHOLHDL 3.2 08/29/2022 TRIG 127 08/29/2022 LDLCHOL 51 08/29/2022 EKG: Lab Results Component Value Date/Time DIAGLINE 09/07/2022 0635 Normal sinus rhythm with sinus arrhythmia Low voltage QRS T wave abnormality, consider anterolateral ischemia Abnormal ECG When compared with ECG of 01-SEP-2022 02:24, No significant change was found I personally reviewed the tracing and edited the fellows interpretation Confirmed by fellow Niurka Rose ([id number]) on 09/07/2022 8:45:34 AM Confirmed by MD ALEJANDRA, RICHARD ([id number]) on 09/07/2022 1:55:43 PM QTCCALC 455 09/07/2022 0635 Microbiology: Lab Results Component Value Date/Time URINECULTURE 1,000-9,000 cfu/ml Insignificant growth 08/15/2022 1225 Lab Results Component Value Date/Time BLOODCX No growth at 5 days. 08/19/2022 1720 BLOODCX No growth at 5 days. 08/19/2022 1330 BLOODCX No growth at 5 days. 08/15/2022 0110 BLOODCX No growth at 5 days. 08/14/2022 2355 Microbiology Results (Last 30 days) Procedure Component Value Units Date/Time Lower Respiratory Culture Bronchial Alveolar Lavage [[id number]] Collected: 08/21/221649 Lab Status: Final result Specimen: Bronchial Alveolar Lavage Updated: 08/23/22 0741 Lower Respiratory Culture Rare mixed bacterial morphotypes suggestive of normal upper respiratory wiley Gram Stain -- Few Neutrophils seen No squamous epithelial cells seen No microorganisms seen. Fungus Culture & Calc Stain Bronchial Alveolar Lavage [[id number]] (Abnormal) Collected: 08/21/221649 Lab Status: Preliminary result Specimen: Bronchial Alveolar Lavage Updated: 08/24/22 1452 AFB culture Bronchial Alveolar Lavage [[id number]] Collected: 08/21/221649 Lab Status: Preliminary result Specimen: Bronchial Alveolar Lavage Updated: 08/24/22 2219 Acid Fast Bacilli Culture -- No Acid Fast Bacilli isolated to date If active tuberculosis is suspected, the patient should be on AIRBORNE PRECAUTIONS. Call Infection Prevention for assistance if needed. Acid Fast Stain No Acid Fast Bacilli seen Fungus culture [[id number]] (Abnormal) Collected: 08/21/221649 Lab Status: Preliminary result Specimen: Bronchial Alveolar Lavage Updated: 08/24/22 145 Fungus Culture Rare Jacky albicans Calcofluor White Stain [[id number]] Collected: 08/21/221649 Lab Status: Final result Specimen: Bronchial Alveolar Lavage Updated: 08/21/222015 Calcofluor Stain Calcofluor White Preparation: Negative Lower Respiratory Culture Bronchial Alveolar Lavage [[id number]] Collected: 08/21/221644 Lab Status: Final result Specimen: Bronchial Alveolar Lavage Updated: 08/23/22 0741 Lower Respiratory Culture Rare mixed bacterial morphotypes suggestive of normal upper respiratory wiley Gram Stain -- Moderate Neutrophils seen No squamous epithelial cells seen No microorganisms seen. Fungus Culture & Calc Stain Bronchial Alveolar Lavage [[id number]] (Abnormal) Collected: 08/21/221644 Lab Status: Preliminary result Specimen: Bronchial Alveolar Lavage Updated: 08/24/22 1453 AFB culture Bronchial Alveolar Lavage [[id number]] Collected: 08/21/221644 Lab Status: Preliminary result Specimen: Bronchial Alveolar Lavage Updated: 08/24/22 222 Acid Fast Bacilli Culture -- No Acid Fast Bacilli isolated to date If active tuberculosis is suspected, the patient should be on AIRBORNE PRECAUTIONS. Call Infection Prevention for assistance if needed. Acid Fast Stain No Acid Fast Bacilli seen Fungus culture [[id number]] (Abnormal) Collected: 08/21/22 1645 Lab Status: Preliminary result Specimen: Bronchial Alveolar Lavage Updated: 08/24/22 1453 Fungus Culture Rare Jacky albicans Calcofluor White Stain [[id number]] Collected: 08/21/22 164 Lab Status: Final result Specimen: Bronchial Alveolar Lavage Updated: 08/21/22 2017 Calcofluor Stain Calcofluor White Preparation: Negative Blood culture [[id number]] Collected: 08/19/22 1720 Lab Status: Final result Specimen: Blood Updated: 08/24/22 2301 Blood Culture No growth at 5 days. Lower Respiratory Culture Sputum Induced [[id number]] Collected: 08/19/22 1451 Lab Status: Final result Specimen: Sputum Induced Updated: 08/21/22 0948 Lower Respiratory Culture Rare mixed bacterial morphotypes suggestive of normal upper respiratory wiley Gram Stain -- Many Neutrophils seen Few squamous epithelial cells seen No microorganisms seen. Blood culture [[id number]] Collected: 08/19/22 1330 Lab Status: Final result Specimen: Blood Updated: 08/24/22 1501 Blood Culture No growth at 5 days. Legionella Urinary Antigen [[id number]] Collected: 08/18/22 1013 Lab Status: Final result Specimen: Urine Updated: 08/18/22 2252 Legionella Urinary Antigen Negative Comment: A negative Legionella Urinary Antigen by EIA suggests no recent or current infection with L. pneumophila Serogroup 1. Antigen may not be present in urine in early infection, and the level of antigen present in the urine may be below the detection limit of the test. Sensitivity: 95% Specificity 95%. Urine culture Indwelling Catheter Urine; Other; sepsis, bacteria on UA [[id number]] Collected: 08/15/22 1225 Lab Status: Final result Specimen: Indwelling Catheter Urine Updated: 08/16/22 0804 Urine Culture 1,000-9,000 cfu/ml Insignificant growth COVID-19 PCR [[id number]] Collected: 08/15/22 1150 Lab Status: Final result Specimen: Nasopharyngeal Swab Updated: 08/15/22 1501 SARS-CoV-2 RNA PCR Not Detected Comment: This result should be interpreted in combination with the clinical observations, patient history and epidemiological information. For testing of asymptomatic individuals, assay performance characteristics and clinical utility have not been evaluated. Testing for SARS-CoV-2 (Severe acute respiratory syndrome coronavirus 2, formerly known as 2019 novel coronavirus or 2019-nCoV) to aid in the diagnosis of COVID-19 is performed using the Simplexa COVID-19 Direct Assay by [employer] as authorized by the FDA issued Emergency Use Authorization (EUA). This assay is intended for In-vitro Diagnostic (IVD) use with nasopharyngeal swabs collected from individuals meeting the CDC criteria for testing. The assay is performed based on the instructions for use and additional guidance provided by the FDA. Testing is performed in the Microbiology Laboratory within the Department of Pathology and Laboratory Medicine at [facility], certified under the Clinical Laboratory Improvement Amendments of 1988 (CLIA), 42 U.S.C. section 263a, to perform high complexity tests. Assay performance has been verified according to clinical laboratory regulatory requirements. Test results are provided above. A result of Not Detected indicates that the viral RNA target is not present but does not preclude SARS-CoV-2 infection. False negative results may occur if a specimen is improperly collected, transported or handled; if amplification inhibitors are present; or if inadequate numbers of viral particles are present in the specimen. A result of Detected suggests a current or recent infection and the patient is presumed to be infected. Positive and negative predictive values for this test are highly dependent on disease prevalence. A result of Invalid indicates the inability to conclusively determine the presence or absence of SARS-CoV-2 RNA in the sample which can be due to a variety of factors. Recollection is recommended in the case of an invalid result. CDC COVID-19 criteria for testing on human specimens and clinical management guidance information are available at the CDC Coronavirus Disease 2019 (COVID-19) webpage under Information for Healthcare Professionals (https://www.cdc.gov/coronavirus/2019-ncov/hcp/index.html). Additional information about this and other EUA tests can be found in provider and patient fact sheets at the following FDA website: https://www.fda.gov/medical-devices/iynrmtlvqux-iwkmvgw-5233-jvbcl-02-kifujtbbq- kxb-llqdpjkibteccc-nwyjbxz-devices/tkvyp-bvystuezwow-jtfj SARS-CoV-2 Source PLANT SUPERVISOR Swab Lower Respiratory Culture Sputum Induced [[id number]] Collected: 08/15/22 0740 Lab Status: Final result Specimen: Sputum Induced Updated: 08/17/22 1015 Lower Respiratory Culture Rare normal upper respiratory wiley Gram Stain -- Many Neutrophils Few squamous epithelial cells Rare mixed bacterial morphotypes suggestive of normal upper respiratory wiley Blood culture [[id number]] Collected: 08/15/22 0110 Lab Status: Final result Specimen: Blood Updated: 08/20/22 0701 Blood Culture No growth at 5 days. MRSA PCR Screen ([facility]/CGP/APD/NLH) [[id number]] Collected: 08/15/22 0050 Lab Status: Final result Specimen: Nasopharyngeal Swab Updated: 08/17/22 1419 MRSA Result Negative MRSA Interp -- Methicillin-resistant Staphylococcus aureus (MRSA) is NOT DETECTED The MRSA target DNA sequences (mec and SCC) were not detected within the acceptable ranges using the Xpert MRSA NxG on the GeneXpert Dx System ([employer]). This suggests the absence of MRSA in the patient specimen submitted for testing. This test is cleared by the U.S. Food and Drug Administration for clinical use and its performance characteristics have been verified by the [facility] at [facility]. This result does not rule out the presence of any other organisms. Rare false negative results may occur if MRSA is present at low concentrations with much higher concentrations of other organisms including MRSE or S. aureus with an empty SCC cassette. Comment: [VERIFIED DATE]08.17.22 Verified By:Shannon Smiley (Electronic Signature) Blood culture [[id number]] Collected: 08/14/22 0760 Lab Status: Final result Specimen: Blood Updated: 08/20/22700 Blood Culture No growth at 5 days. Imaging/Diagnostics: Results for orders placed or performed during the hospital encounter of 08/14/22 XR Chest One View (Exam End: 08/15/2022 1:00 AM) Impression FINDINGS/IMPRESSION: * Moderate pulmonary edema. * No confluent airspace opacity otherwise seen. * Cannot exclude small pleural effusions. * Cardiomediastinal contours appear within normal limits. * Endotracheal tube tip projects 3.8 cm above the consuelo. * RIGHT neck central catheter, distal catheter coiled over the region of the RIGHT ventricle and pulmonary trunk. Thank you for letting us participate in the care of this patient. If you are a health care provider and have any questions regarding this report, please contact the number below. For patients who have questions please contact the health acute care physician that requested your imaging first. Abdomen 1 view (Generic) (Exam End: 08/15/2022 8:33 AM) Impression The enteric tube sidehole is not definitively subdiaphragmatic. Recommend advancement. Preliminary report signed by: Carlos Wolff at 08/15/2022 9:00 AM I have personally reviewed the image(s) and the resident's interpretation and agree with the findings, Liliane Adams MD at 08/15/2022 9:05 AM Thank you for letting us participate in the care of this patient. If you are a health care provider and have any questions regarding this report, please contact the number below. For patients who have questions please contact the health acute care physician that requested your imaging first. Electronically signed by: Liliane Adams MD, [facility] ([phone]), at 08/15/2022 9:05 AM XR Chest One View (Exam End: 08/15/2022 1:14 AM) Impression FINDINGS/IMPRESSION: * RIGHT neck central catheter redemonstrated terminating over the region of the pulmonary trunk, now uncoiled distally although the tip is looped. * Moderate pulmonary edema redemonstrated. * ET tube projects similar. Thank you for letting us participate in the care of this patient. If you are a health care provider and have any questions regarding this report, please contact the number below. For patients who have questions please contact the health acute care physician that requested your imaging first. Abdomen 1 view (Generic) (Exam End: 08/15/2022 6:38 AM) Impression Nonspecific/nondiagnostic appearance of the abdomen, with large stool burden in the RIGHT hemiabdomen and pelvis. Thank you for letting us participate in the care of this patient. If you are a health care provider and have any questions regarding this report, please contact the number below. For patients who have questions please contact the health acute care physician that requested your imaging first. Chest One View (Exam End: 08/16/2022 10:31 AM) Impression PA catheter has a persistent loop near the tip, similar to the prior comparison study. Improved pulmonary edema. Thank you for letting us participate in the care of this patient. If you are a health care provider and have any questions regarding this report, please contact the number below. For patients who have questions please contact the health acute care physician that requested your imaging first. Electronically signed by: Alfonso Adams MD, [facility] ([phone]), at 08/16/2022 10:[address] Head wo Contrast (Generic) (Exam End: 08/16/2022 10:44 PM) Impression No acute intracranial abnormality and no change from prior Thank you for letting us participate in the care of this patient. If you are a health care provider and have any questions regarding this report, please contact the number below. For patients who have questions please contact the health acute care physician that requested your imaging first. Electronically signed by: Moustapha Correa MD, [facility] ([phone]), at 08/16/2022 11:19 PM XR Abdomen 1 view (Generic) (Exam End: 08/17/2022 12:09 PM) Impression Status post Dobbhoff tube placement with catheter tip terminating at the approximate position of greater curvature. I have personally reviewed the image(s) and the resident's interpretation and agree with the findings, Jenn Pina MD at 08/17/2022 2:31 PM Thank you for letting us participate in the care of this patient. If you are a health care provider and have any questions regarding this report, please contact the number below. For patients who have questions please contact the health acute care physician that requested your imaging first. Head wo Contrast (Generic) (Exam End: 08/18/2022 3:14 PM) Impression No acute intracranial process. Thank you for letting us participate in the care of this patient. If you are a health care provider and have any questions regarding this report, please contact the number below. For patients who have questions please contact the health acute care physician that requested your imaging first. Electronically signed by: Antonio Jordan MD, [facility] ([phone]), at 08/18/2022 3:18 PM XR Chest One View (Exam End: 08/19/2022 12:30 PM) Impression 1. Increased bibasilar airspace opacities compared to radiograph 08/16/2022, concerning for an infectious/inflammatory process. A component of edema not excluded. 2. Overall decreased pulmonary edema. I have personally reviewed the image(s) and the resident's interpretation and agree with the findings, Alan De Guzman MD at 08/19/2022 3:14 PM Thank you for letting us participate in the care of this patient. If you are a health care provider and have any questions regarding this report, please contact the number below. For patients who have questions please contact the health acute care physician that requested your imaging first. Electronically signed by: Alan De Guzman MD, [facility] ([phone]), at 08/19/2022 3:14 PM MRI Brain wo Contrast (Exam End: 08/19/2022 10:15 PM) Impression No acute infarction, mass or mass effect. Thank you for letting us participate in the care of this patient. If you are a health care provider and have any questions regarding this report, please contact the number below. For patients who have questions please contact the health acute care physician that requested your imaging first. Chest for Verifying Vascular Access PICC Placement At Bedside (Exam End: 08/19/2022 4:36 PM) Impression PICC tip is in the superior vena cava above the right atrium. Thank you for letting us participate in the care of this patient. If you are a health care provider and have any questions regarding this report, please contact the number below. For patients who have questions please contact the health acute care physician that requested your imaging first. Electronically signed by: Alan De Guzman MD, [facility] ([phone]), at 08/19/2022 4:[address] Hip w Contrast Left (Exam End: 08/20/2022 11:04 PM) Impression 1. Uncomplicated left femoral neck ORIF with unchanged postoperative alignment. 2. Moderate skin thickening and subcutaneous stranding about the lateral left hip with lateral left thigh intramuscular edema and fascial thickening. These findings are nonspecific and may be seen in the routine postoperative setting. Underlying soft tissue infection with infectious or inflammatory myositis may also have this appearance. Correlation with physical examination, clinical symptoms, and laboratory findings is recommended. 3. 2.3 x 1.6 x 1.8 cm focus of more coalescent fluid attenuation centered in the subcutaneous fat of the posterolateral thigh roughly at the level of the proximal femoral fixation screw heads. There is no rim-enhancing to suggest a mature, organized abscess at this time. However, this finding could represent phlegmon in appropriate clinical context, or it could represent a postsurgical collection, the contents of which may be sterile or infected. 4. There is a rectal tube in place. However, there remains a large stool ball in the rectum with free fluid versus coalescent edema on both the anterior and posterior margins of the distended rectum. In appropriate clinical context, these findings could represent proctocolitis or stercoral colitis. I have personally reviewed the image(s) and the resident's interpretation and agree with the findings, Aicha Chowdhury MD at 08/21/2022 9:34 AM Thank you for letting us participate in the care of this patient. If you are a health care provider and have any questions regarding this report, please contact the number below. For patients who have questions please contact the health acute care physician that requested your imaging first. Electronically signed by: Aicha Chowdhury MD, [facility] ([phone]), at 08/21/2022 9:[address] Chest w Contrast (Exam End: 08/20/2022 11:04 PM) Impression 1. Multifocal lower lobe predominant consolidative opacities with additional upper lobe opacities consistent with multifocal pneumonia. Compared to the prior CT of 08/12/2022 the number and size of the opacities has decreased. Recommend follow-up imaging in 3-6 months to document complete resolution. 2. New small, sub-1 cm early cavitation of multiple opacities predominantly within the posterior left upper lobe and left lower lobe. 3. New curvilinear splenic lesions could represent infarct versus late arterial phase splenic arterial opacification. Thank you for letting us participate in the care of this patient. If you are a health care provider and have any questions regarding this report, please contact the number below. For patients who have questions please contact the health acute care physician that requested your imaging first. Hip 2-3 Views Left (Exam End: 08/22/2022 12:19 AM) Impression No radiographic evidence of infection. Thank you for letting us participate in the care of this patient. If you are a health care provider and have any questions regarding this report, please contact the number below. For patients who have questions please contact the health acute care physician that requested your imaging first. Electronically signed by: Viktor Cervantes MD, [facility] ([phone]), at 08/22/2022 12:43 PM XR Pelvis (Generic) (Exam End: 08/22/2022 12:19 AM) Impression No radiographic evidence of infection status post left hip ORIF. Thank you for letting us participate in the care of this patient. If you are a health care provider and have any questions regarding this report, please contact the number below. For patients who have questions please contact the health acute care physician that requested your imaging first. Electronically signed by: Richard Billings MD, [facility] ([phone]), at 08/22/2022 10:[address] Angiogram Coronary Arteries (Exam End: 08/27/2022 8:58 AM) Impression Coronary calcium score of 0, consistent with no detectable calcified atherosclerotic plaque burden. No evidence of stenosing soft plaque on the coronary CT arteriogram. CAD RADS 0 Ongoing bilateral pulmonary infectious/inflammatory changes with persistent consolidative opacity especially in the left lower lobe. This could represent a multifocal pneumonia. Recommend follow-up CT in 3 months to assess for resolution. Thank you for letting us participate in the care of this patient. If you are a health care provider and have any questions regarding this report, please contact the number below. For patients who have questions please contact the health acute care physician that requested your imaging first. Electronically signed by: Arlette Mays MD, [facility] ([phone]), at 08/27/2022 11:[address] Chest wo Contrast (Generic) (Exam End: 08/27/2022 8:58 AM) Impression Stable findings of multifocal pneumonia. No interval abnormality. Thank you for letting us participate in the care of this patient. If you are a health care provider and have any questions regarding this report, please contact the number below. For patients who have questions please contact the health acute care physician that requested your imaging first. Electronically signed by: MINH QUIROGA MD, [facility] ([phone]), at 08/27/2022 10:48 AM XR Fluoro Barium Swallow (Modified/Video Swallow Pharynx) (Exam End: 08/31/2022 11:23 AM) Impression Abnormal modified barium swallow as above. Please see speech pathology report for further discussion. Thank you for letting us participate in the care of this patient. If you are a health care provider and have any questions regarding this report, please contact the number below. For patients who have questions please contact the health acute care physician that requested your imaging first. Electronically signed by: Aron Billings MD, [facility] ([phone]), at 08/31/2022 12:02 PM XR Fluoro Barium Swallow (Modified/Video Swallow Pharynx) (Exam End: 09/04/2022 10:25 AM) Impression 1. Penetration of the airway and aspiration with thin liquids, especially with rapid sips of thin barium. 2. Flash penetration of nectar thick liquids from a straw. 3. Reflux of residual barium within the esophagus on multiple swallows. I have personally reviewed the image(s) and the resident's interpretation and agree with the findings, Alfonso Adams MD at 09/04/2022 10:57 AM Thank you for letting us participate in the care of this patient. If you are a health care provider and have any questions regarding this report, please contact the number below. For patients who have questions please contact the health acute care physician that requested your imaging first. Electronically signed by: Alfonso Adams MD, [facility] ([phone]), at 09/04/2022 10:57 AM XR Abdomen 1 view (Generic) (Exam End: 09/04/2022 9:47 PM) Impression 1. On the chest radiograph at 2136 hours the enteric tube projects over the mid esophagus. On the abdominal radiograph at 2139 hours the enteric tube now projects below the diaphragm with tip partially visualized projecting over the left mid abdomen. 2. Lower lobe predominant patchy and reticular airspace opacities consistent with sequela of multifocal pneumonia. The appearance is improved compared to prior radiograph. Thank you for letting us participate in the care of this patient. If you are a health care provider and have any questions regarding this report, please contact the number below. For patients who have questions please contact the health acute care physician that requested your imaging first. Chest One View (Exam End: 09/04/2022 9:47 PM) Impression 1. On the chest radiograph at 2136 hours the enteric tube projects over the mid esophagus. On the abdominal radiograph at 2139 hours the enteric tube now projects below the diaphragm with tip partially visualized projecting over the left mid abdomen. 2. Lower lobe predominant patchy and reticular airspace opacities consistent with sequela of multifocal pneumonia. The appearance is improved compared to prior radiograph. Thank you for letting us participate in the care of this patient. If you are a health care provider and have any questions regarding this report, please contact the number below. For patients who have questions please contact the health acute care physician that requested your imaging first. Chest One View (Exam End: 09/05/2022 9:24 AM) Impression 1. Reposition enteric tube now extending below the diaphragm and included [id number]. 2. Similar appearance of elevated right hemidiaphragm and linear/patchy bibasilar opacities which may represent atelectasis or possibly aspiration. Thank you for letting us participate in the care of this patient. If you are a health care provider and have any questions regarding this report, please contact the number below. For patients who have questions please contact the health acute care physician that requested your imaging first. Electronically signed by: AUDI PERDOMO MD, [facility] ([phone]), at 09/05/2022 3:43 PM Medications: Scheduled: ??? buPROPion 100 mg Per NG tube Daily ??? melatonin 6 mg Per NG tube Nightly ??? metoprolol tartrate 12.5 mg Per NG tube 2 times per day ??? QUEtiapine 100 mg Per NG tube Nightly ??? sacubitriL-valsartan 1 tablet Per NG tube BID ??? valproic acid 300 mg Per NG tube Q6H ??? insulin lispro 1-10 Units Subcutaneous Q4H LAZARUS ??? miconazole nitrate Topical (Top) BID ??? empagliflozin 10 mg Oral Daily ??? lidocaine 3 patch Transdermal Q24H ??? ergocalciferoL (vitamin D2) 50,000 Units Per NG tube Weekly ??? enoxaparin 40 mg Subcutaneous Daily ??? atorvastatin 80 mg Per NG tube QPM ??? folic acid 1,000 mcg Per NG tube Daily ??? ferrous sulfate 300 mg Per NG tube Every Other Day ??? chlorhexidine 15 mL Oral BID ??? pantoprazole 40 mg Intravenous BID ??? sodium chloride 0.9 % (flush) 5 mL Intravenous BID ??? thiamine 100 mg Intravenous Daily Continuous: ??? dextrose 5% lactated ringers 100 mL/hr (09/09/22 0030) ??? tube feeding diet Stopped (09/08/222025) PRN: prochlorperazine, ondansetron, diclofenac, acetaminophen, polyethylene glycoL, senna, bisacodyL, sodium chloride 0.9 % (flush), lidocaine, glucose 40% oral geL OR dextrose 10% OR glucagon ASSESSMENT and PLAN: Ishan Irving is a 62 y.o. 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.5 years) c/b chronic pancreatitis, iron deficiency anemia,??GE RD??c/b??esophagitis &??Farrell's esophagus, who was admitted to [facility] on 08/14/2022 (now on Hospital Day #23) for mixed shock and stress cardiomyopathy who transferred to Hospital Medicine due to persistent dysphagia. 09/09/22 Ishan is doing well today and is happy to be in a different room. Given recent episode of prior aspiration event and ongoing dysphagia, will plan for PEG placement with surgery today (as patient was bumped from the OR schedule yesterday). 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 Today's plan: - Continue tube feeds - Diabetes Team aware and titrating insulin accordingly - Surgery consulted for PEG placement today # Bipolar Disorder - Continue Seroquel 100mg nightly for now, patient and want it uptitrated before discharge - C/w valproate 300mg q6h - G[employer]PER[employer]OR following, NPO at present - Psychiatry Consult, appreciate recs, recommended starting Wellbutrin - Continue Wellbutrin 100mg IR as other formulations cannot be crushed for NG # Medication-induced Parkinsonism # Dysphagia - Continue tube feeds - Diabetes Team aware and titrating insulin accordingly - Surgery consulted for PEG placement today?? # Acute hypoxic respiratory failure, resolved # Bilateral airspace opacities/multifocal pneumonia, resolved -??Respiratory support with LFNC PRN - Antibiotics: Status post zosyn for pneumonia, stopped per ID - Fungitell and Fungal Cx positive, no change in management at this time per ID - CT Chest showed persistent pneumonia; ID followed, patient completed course of antibioitics ?? # Distributive Shock, resolved # NSTEMI Type I vs Type II, resolved # HFrEF (EF 25%) #Stress Cardiomyopathy - Will not perform LHC given results of CTA coronary arteries. - ASA 81mg - Entresto 24-26 1 tab BID - Metoprolol 25mg daily, starting 08/30 as tartrate for Dobhoff - Spironolactone 12.5mg QD (held starting 08/30 in setting of NPO status) - Empagliflozin 10mg as part of GDT - She will need a repeat TTE at some point to assess for resolution/improvement of presumed stress induced cardiomyopathy - Mg >1, K >4 ?? # GERD c/b Farrell's esophagus & esophagitis # Constipation- resolved # Rectal wall edema 2/2 stool ball - Has Miralax, senna, dulcolax PRN ordered - Continue home pantoprazole 40 BID - As discussed with GI, EGD is not indicated at this time as she has had one done in the recent past. ?? # Insulin-dependent diabetes -??Diabetes Management consulted, appreciate recs # Mixed JERRICA and ACD - Oral iron supplementation started 08/21 > s/p 1 dose of Venofer - Ferritin, Iron, TIBC resulted; mixed picture - Transfuse for Hb <8 - S/p 1u pRBC 08/22 ?? # Septic shock # Bilateral airspace opacities/multifocal pneumonia # L Hip Fluid Collection # Subcentimeter left posterior upper lobe cavitary lesions - Infectious work-up initially did not yield any clear causative organisms - S/p BAL 08/21 without any growth to date. - IR, orthopedic surgery consulted for evaluation of L hip fluid collection. No intervention/drainable target. - Stopped zosyn as per ID (08/14- 08/23) - Fungal testing positive no change in management at this time per ID #Housekeeping: DVT PPx: LMWH GI PPx: N/a Diet: NPO diet (Give Meds) Lines: PICC Line - Double Lumen 08/19/22 1655 basilic vein (medial side of arm), right 5 Fr (Active) Number of days: 20 D/c planning: Acute rehab Code status: Attempt Cardiopulmonary Resuscitation - Inpatient Chau Keith MD Internal Medicine PGY1 Medicine Team: Jose Juan, Pager #[phone] Date: 09/09/2022 Associated attestation - Molina Flores MD - 09/11/2022 12:05 PM EDT Attending Attestation and Certification Please see Chau Keith MD's note for details of the patient history of presentation and data. I have discussed, reviewed and agree with the documented History, Physical findings, Assessment and Plan of care. I have examined the patient myself and personally reviewed all studies. In addition, I certify thatI am a [facility] credentialed attending provider with admitting privileges and that the patient meets or has met medical necessity to require an inpatient IPI level of care meeting a minimum of two midnights or is on the [facility] inpatient only procedure list (status C) due to: mixed shock , stress cardiomyopathy, aspiration pneumonia with underlying persistent dysphagia 2/2 stenosis at the Farrell esophagus site. * Alicia Glez OTA - 09/08/2022 11:01 AM EDT Occupational Therapy Treatment Note Treatment Number OT: 5 Patient Dx: Ishan Irving is a 62 y.o. female admitted on 08/14/2022 with a medical history notable for??recent L femoral neck fracture,??bipolar disorder, resolving medication-induced Parkinsonism, insulin-dependent diabetes mellitus,??hx of alcohol use disorder (reported to be in remission for 1.5 years) c/b chronic pancreatitis, iron deficiency anemia,??GERD??c/b??esophagitis &??Farrell's esophagus??presenting in transfer from [facility], suspected to be in cardiogenic shock and found to be in mixed shock with concern for stress cardiomyopathy. She is s/p ORIF left femoral neck fracture. Precautions/Special Considerations: aspiration, skin breakdown, falls, LLE WBAT, Dobhoff tube, Cmrae Interval History: 09/08 Yesterday: - Doing okay. - Continue tube feeds intermittently at goal. - IR consulted for PEG placement this week. ??Overnight: - No acute events overnight. Today AM: - Continues to report mild nausea without any vomiting. - Otherwise denies any other acute medical complaints. S: I can not stand I need to sit! O: Patient seen for skilled OT treatment, and demonstrated the following: ?? Pt seated in bed upon arrival, spouse reporting pt incontinence ?? Pt able to roll R>L with VC and Min A ?? Max A with removal of pure wick and gavin care, Chux pad changed ?? Max A with incontinence care, pure wick applied at end of session ?? Pt with continued fungal infection gavin area and buttocks remain red with rash ?? Therapy explained the plan to pt and spouse ?? Pt agreed to sit EOB ?? Pt required Mod A with supine to sit EOB, pt with good unsupported sitting at EOB ?? Pt able to weight shift to EOB and place feet on floor with supervision and VC ?? Dependent to marck socks, Pt Min A with changing gown and max A with managing tubs and lines ?? Sit to stand min A x2 with FWW and gait belt, pt reporting fear of falls limiting her mobility ?? Stand step transfer with FWW from bed to recliner, pt requiring VC for safety awareness during transitions pt trying to sit premature before in front of chair. Pt requires education and VC for limb position during transfers ?? Pt was able to stand from recliner x3 with FWW, gait belt and Min A x2, pt demonstrating the need for less support with each stand ?? Pt standing tolerance ~ 15-20 sec before requesting to sit, pt requires max encouragement to participate in functional mobility ?? Grooming: seated set up with hair brush, pt able to brush her hair, Max A with putting in pony tail ?? Set up for oral hygiene pt declined oral care. ?? Pt and spouse education on pacing and EC for improved participation in activities of daily living and functional mobility ?? Cognition: ?? Behavior / Mood: alert, cooperative and flat affect ?? Alert and oriented to: person, place, time and situation ?? Follows commands: 1 step, 100% of the time and requires increased time ?? Attention: WFL ?? Safety awareness: WFL, aware of L femur Fx ?? Vision: Glasses have been brought in by spouse; wears corrective lenses at all times ?? Endurance: Poor ?? Vitals: VSS Pain: pt did not c/o pain but reminded therapist that her leg was fractured Education: Pt/family/caregiver education ongoing regarding: ADL, Exercise, Positioning, Recommendations and Discharge planning. Staff Communication: Patient status, treatment, and mobility recommendations discussed with nursing/other staff. Pt aware of need to urinate, yet was incontinent.Pt will benefit from not using purewick during theday to progress functional mobility. Please encourage pt to engage in OOB activities through out the day. ASSESSMENT: Pt seen for continuation of therapy POC. Pt quiet and reserved, spouse speaking for pt.P requires encouragement with coping and participating in OOB activities during the day. Pt was able to participate in multiple stands with rest breat in between, pt with BUE weakness with visual shaking during standing, Pt was able to transfer stand step transfer from bed to chair. Pt deferred mobilizing to BR with FWW gait belt and A x2. Pt is progressing slow and remains deconditioned, with low activity tolerance. Pt remains below her base line for ADL's and mobility, pt continues to be appropriate and excellent rehab candidate. An acute rehab stay remains appropriate for a discharge plan. Equipment needs at discharge: to be determined Anticipated Discharge Disposition: acute rehabilitation facility Daily schedule / Staff Recommendations: ? ? Encourage use of coping & calming strategies ??? Give choices when possible to support feelings of autonomy ? ? Frequent orientation verbally & visually with calendars/clocks/whiteboard ? ? Keep glasses, hearing aides, etc within reach & offer to pt as appropriate ??? Facilitate a normal sleep-wake cycle ??? Provide brief, clear instruction and direction from one source at a time ??? Provide calming music, favorite TV programs, magazines or newspapers ??? Utilize upright chair position using bed features or transfer to recliner chair as appropriate with mechanical lift ??? Encourage participation in ADL's by providing set up A on tray table and physical assist only as needed Occupational Therapy Goals: To be achieved by 09/08/22: ?? Patient will complete toileting tasks (hygiene, clothing management, transfers) with Mod A and withAE, as needed Patient will ambulate household distances with Mod A and with AD, as needed Patient will complete UB/LB sponge bathing tasks with Min A, while seated with AE, as needed (only UB bathing) Patient will complete grooming task (comb hair, brush teeth) with supervision, seated EOB (in supported sitting) Goal met Therapy Frequency (OT): 2-4 times/wk Total Minutes, Occupational Therapy: 45 (x3 [facility] [phone]) Pager: [phone] DANIELA Montes 09/08/2022 Occupational Therapy Rehabilitation Department * Elsie Erickson APRN - 09/08/2022 10:53 AM EDT Follow Up Diabetes Consult Patient Interview Blood glucose values and insulin use reviewed. TF adjusted for pt, cycled at 90 mls/hr last night with improved tolerance. Currently Held with plan for PEG placement, OR schedule now pushed to later this evening, Lantus was held this morning though BGs remain within normal range. Patient to continue with correction insulin (vs dose of mixed insulin to cover carbs in 14 hour cycle) until she tolerates cycled feed at determined rate. Objective Temp: [36.8 ??C (98.2 ??F)-36.9 ??C (98.4 ??F)] Heart Rate: [66-95] Resp: [18-21] BP: (106-136)/(48-69) SpO2: [91 %-100 %] Heart Rate from SpO2: -- Current Regimen from previous note Lantus:10??units?? Humalog??75/25??mixed insulin: HOLD until TFs at goal and pt is tolerating.?? Lispro for correction q 4 hours based on a correction factor of??20?? Diet??sips and chips and Peptamen AF with goal of??110??mls/hr Monitoring:??Q4 ?? Recent Glucose Levels Recent Labs 09/08/22 0653 09/08/22 0357 09/07/22 2306 09/07/22 2021 09/07/22 1554 09/07/22 1126 09/07/22 0746 09/07/22 0408 09/07/22 0029 09/06/22 2154 09/06/22 1646 09/06/22 1257 POCGLU 134 165 189 143 182 153 150 135 127 184 177 176 ASSESSMENT Ishan Irving is a 62 year old female with a medical history notable for??recent L femoral neck fracture,??bipolar disorder, resolving medication- induced Parkinsonism, insulin-dependent diabetesmellitus,??hx of alcohol use disorder (reported to be in remission for 1.5 years) c/b chronic pancreatitis, iron deficiency anemia,??GERD??c/b??esophagitis &??Farrell's esophagus??presenting in transfer from [facility], suspected to be in cardiogenic shock and found to be in mixed shock with concern for stress cardiomyopathy.??A1C of 6.2% upon admission suggesting an average BG of??131??mg/dL for the past 6-8 weeks. Currently has variability of blood glucose levels while hospitalized requiring adjustment of insulin regimen and DM medications. ?? Awaiting OR for PEG placement. Tube feeds held, Lantus held. She should continue on moderate correction once nutrition starts, will continue to work to identify a dose of mixed insulin to initiate atstart of future feed cycle to cover carbs. Previously managed with a 1:4 ICR with cycled feed. PLAN Lantus:10??units?? Humalog??75/25??mixed insulin: HOLD until TFs at goal and pt is tolerating.?? Lispro for correction q 4 hours based on a correction factor of??20?? Diet: NPO for OR Monitoring:??Q4 Elsie Erickson APRN [facility] Endocrinology Diabetes Management Pager [phone] 20 minutes of this 35 minute visit was spent with the patient in counseling on diabetes and treatment plan, reviewing all glucose and insulin data as well as relevant laboratory results with the patient, and coordination of care on the inpatient unit including nursing and primary team. * Briana Bryant, BRAYDON - 09/08/2022 8:47 AM EDT Speech-Language Pathology Consult Note Ishan Irving??is a 62 y.o.??female??admitted on 08/14/2022??with a medical history notable for??recent L femoral neck fracture,??bipolar disorder, resolving medication-induced Parkinsonism, insulin-dependent diabetes mellitus,??hx of alcohol use disorder (reported to be in remission for 1.5 ye ars) c/b chronic pancreatitis, iron deficiency anemia,??GERD??c/b??esophagitis &??Farrell's esophagus??presenting in transfer from [facility], suspected to be in cardiogenic shock and found to be in mixed shock with concern for stress cardiomyopathy.??She is s/p ORIF left femoral neck fracture ~ 4 at OSH. ?? Interval History: Dobhoff placed, Moved from ISCU to floor status, plan for PEG today. [employer] team will continue to follow for swallowing and cognition. Briana Bryant MA [facility] Inpatient Rehabilitation Medicine pager:# [phone] * Chau Keith MD - 09/08/2022 6:11 AM EDT Images from the original note were not included. Inpatient Hospital Medicine Progress Note 09/08/2022 Patient Name: ISHAN IRVING Date of : 1960 Age: 62 y.o. Hospital Admit Date: 08/14/2022 Hospital Day: 25 Inpatient Attending: Richard Pascal MD PCP: Chris Stanley APRN ([phone]) ID: Ishan Irving is a 62 y.o. 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.5 years) c/b chronic pancreatitis, iron deficiency anemia, ??GERD??c/b??esophagitis &??Farrell's esophagus, who was admitted to [facility] on 08/14/2022 (now on Hospital Day #25) for mixed shock and stress cardiomyopathy who transferred to Hospital Medicine due to persistent dysphagia. 24 HOUR EVENTS & SUBJECTIVE: Yesterday: - Doing okay. - Continue tube feeds intermittently at goal. - IR consulted for PEG placement this week. Overnight: - No acute events overnight. Today AM: - Continues to report mild nausea without any vomiting. - Otherwise denies any other acute medical complaints. OBJECTIVE: Vitals: Last value Range last 24 hrs Temperature Temp: 36.8 ??C (98.2 ??F) Temp: [36.8 ??C (98.2 ??F)-36.9 ??C (98.4 ??F)] Heart Rate Heart Rate: 71 Heart Rate: [60-95] Blood Pressure BP: 136/69 BP: (105-136)/(48-69) Art Line BP BP (Arterial Line): 111/70 BP (Arterial Line): -- MAP (NBP): [67 mmHg-91 mmHg] Respiratory Rate Resp: 18 Resp: [18-22] SpO2 SpO2: 91 % SpO2: [91 %-100 %] Oxygen Delivery Oxygen Therapy O2 Device: None (Room air) O2 Flow Rate (L/min): 2 L/min FiO2 (%): 21 % Reason for Oxygen: Patient currently on room air Intake/Output Summary (Last 24 hours) at 09/08/2022 0837 Last data filed at 09/08/2022 0654 Gross per 24 hour Intake 1293 ml Output 1325 ml Net -32 ml I/O last 3 completed shifts: In: 2949 [NG/GT:2714] Out: 1575 [Urine:1450; Emesis/NG output:125] Last Bowel Movement: 09/04/22 Body mass index is 27.91 kg/m??. Patient Vitals for the past 168 hrs: Weight 09/08/22 0621 64.8 kg (142 lb 14.4 oz) 09/07/22 0617 64.1 kg (141 lb 5 oz) 09/04/22 0554 68.9 kg (152 lb) 09/03/22 0600 69.9 kg (154 lb) 09/02/22 0550 70.1 kg (154 lb 8 oz) Admit wt: 69 kg Physical Exam: GENERAL: Awake, no acute distress, dobhoff in place w/tape HEENT: Anicteric, no conjunctival injection CV: RRR, no murmurs/rubs/gallops, 2+ radial/DP pulses PULM: Normal respiratory effort, CTA with good air entry bilaterally, coarse bibasilar breath sounds minimal ABDOMEN: Soft, non-tender, non-distended, no masses, no guarding EXTREMITIES: No lower extremity edema. No clubbing or cyanosis PSYCH/NEURO: morose affect, intact cognition, no tremor SKIN: Warm, dry, no rashes LABS: CBC: Recent Labs 09/08/22 0200 09/07/22 0030 09/06/22 0100 09/05/22 0106 09/04/22 0026 WBC 6.9 6.2 6.3 4.9 6.7 HGB 9.8* 9.1* 8.6* 8.7* 8.5* HCT 32.6* 30.5* 29.0* 29.0* 28.1* PLATELET 300 286 297 314 300 NEUTROABS 3.42 2.71 2.64 1.88 4.05 Chemistry: Recent Labs 09/08/22 0200 09/07/22 0030 09/06/22 0100 09/05/22 0106 09/04/22 0026 NA 142 138 139 140 141 K 4.6 4.6 4.3 3.8 4.3 CL 103 103 104 103 104 CO2 30 29 28 28 29 BUN 25* 22* 21* 21* 30* CREATININE 0.52* 0.53* 0.49* 0.49* 0.53* GLUCOSE 142 144 95 95 131 ANIONGAP 9 6 7 9 8 Recent Labs 09/08/22 0200 09/07/22 0030 09/06/22 0100 09/05/22 0106 09/04/22 0026 CALCIUM 10.0 9.4 9.5 9.5 9.4 MAGNESIUM 0.90 0.86 0.81 0.91 0.88 PHOS 3.2 3.0 3.6 3.9 3.2 LFT's: Recent Labs 08/20/22 1400 08/15/22 0950 08/15/22 0305 BILITOT <0.2* <0.2* 0.2 BILIDIR 0.1 0.1 0.1 ALBUMIN 2.5* 2.4* 2.4* ALKPHOS 213* 102 99 ALT 20 12 13 AST 39* 21 25 Cardiac enzymes: Recent Labs 08/19/22 0120 08/14/22 2355 CK 32 -- PROBNP -- >35,000* Endocrine: Recent Labs 08/20/22 1400 08/15/22 0000 TSH 1.90 0.28 Recent Labs 08/15/22 0305 HA1C 6.2* CRP, Sed Rate Recent Labs 08/21/22 1200 CRP 19.4* SEDRATE >119* Lipids: Lab Results Component Value Date CHLPL 110 08/29/2022 HDL 34 08/29/2022 CHOLHDL 3.2 08/29/2022 TRIG 127 08/29/2022 LDLCHOL 51 08/29/2022 EKG: Lab Results Component Value Date/Time DIAGLINE 09/07/2022 0635 Normal sinus rhythm with sinus arrhythmia Low voltage QRS T wave abnormality, consider anterolateral ischemia Abnormal ECG When compared with ECG of 01-SEP-2022 02:24, No significant change was found I personally reviewed the tracing and edited the fellows interpretation Confirmed by fellow Niurka Rose ([id number]) on 09/07/2022 8:45:34 AM Confirmed by MD ROBERTS DAVID ([id number]) on 09/07/2022 1:55:43 PM QTCCALC 455 09/07/2022 0635 Microbiology: Lab Results Component Value Date/Time URINECULTURE 1,000-9,000 cfu/ml Insignificant growth 08/15/2022 1225 Lab Results Component Value Date/Time BLOODCX No growth at 5 days. 08/19/2022 1720 BLOODCX No growth at 5 days. 08/19/2022 1330 BLOODCX No growth at 5 days. 08/15/2022 0110 BLOODCX No growth at 5 days. 08/14/2022 2355 Microbiology Results (Last 30 days) Procedure Component Value Units Date/Time Lower Respiratory Culture Bronchial Alveolar Lavage [[id number]] Collected: 08/21/221649 Lab Status: Final result Specimen: Bronchial Alveolar Lavage Updated: 08/23/22 0741 Lower Respiratory Culture Rare mixed bacterial morphotypes suggestive of normal upper respiratory wiley Gram Stain -- Few Neutrophils seen No squamous epithelial cells seen No microorganisms seen. Fungus Culture & Calc Stain Bronchial Alveolar Lavage [[id number]] (Abnormal) Collected: 08/21/221649 Lab Status: Preliminary result Specimen: Bronchial Alveolar Lavage Updated: 08/24/22 1452 AFB culture Bronchial Alveolar Lavage [[id number]] Collected: 08/21/221649 Lab Status: Preliminary result Specimen: Bronchial Alveolar Lavage Updated: 08/24/22 2219 Acid Fast Bacilli Culture -- No Acid Fast Bacilli isolated to date If active tuberculosis is suspected, the patient should be on [employer] PRECAUTIONS. Call Infection Prevention for assistance if needed. Acid Fast Stain No Acid Fast Bacilli seen Fungus culture [[id number]] (Abnormal) Collected: 08/21/221649 Lab Status: Preliminary result Specimen: Bronchial Alveolar Lavage Updated: 08/24/22 145 Fungus Culture Rare Jacky albicans Calcofluor White Stain [[id number]] Collected: 08/21/221649 Lab Status: Final result Specimen: Bronchial Alveolar Lavage Updated: 08/21/22 2016 Calcofluor Stain Calcofluor White Preparation: Negative Lower Respiratory Culture Bronchial Alveolar Lavage [[id number]] Collected: 08/21/22 164 Lab Status: Final result Specimen: Bronchial Alveolar Lavage Updated: 08/23/22 0741 Lower Respiratory Culture Rare mixed bacterial morphotypes suggestive of normal upper respiratory wiley Gram Stain -- Moderate Neutrophils seen No squamous epithelial cells seen No microorganisms seen. Fungus Culture & Calc Stain Bronchial Alveolar Lavage [[id number]] (Abnormal) Collected: 08/21/221644 Lab Status: Preliminary result Specimen: Bronchial Alveolar Lavage Updated: 08/24/22 1453 AFB culture Bronchial Alveolar Lavage [[id number]] Collected: 08/21/221644 Lab Status: Preliminary result Specimen: Bronchial Alveolar Lavage Updated: 08/24/22 222 Acid Fast Bacilli Culture -- No Acid Fast Bacilli isolated to date If active tuberculosis is suspected, the patient should be on [employer] PRECAUTIONS. Call Infection Prevention for assistance if needed. Acid Fast Stain No Acid Fast Bacilli seen Fungus culture [[id number]] (Abnormal) Collected: 08/21/221644 Lab Status: Preliminary result Specimen: Bronchial Alveolar Lavage Updated: 08/24/22 1453 Fungus Culture Rare Jacky albicans Calcofluor White Stain [[id number]] Collected: 08/21/221644 Lab Status: Final result Specimen: Bronchial Alveolar Lavage Updated: 08/21/22 2017 Calcofluor Stain Calcofluor White Preparation: Negative Blood culture [[id number]] Collected: 08/19/22 1720 Lab Status: Final result Specimen: Blood Updated: 08/24/22 2301 Blood Culture No growth at 5 days. Lower Respiratory Culture Sputum Induced [[id number]] Collected: 08/19/22 1451 Lab Status: Final result Specimen: Sputum Induced Updated: 08/21/22 0948 Lower Respiratory Culture Rare mixed bacterial morphotypes suggestive of normal upper respiratory wiley Gram Stain -- Many Neutrophils seen Few squamous epithelial cells seen No microorganisms seen. Blood culture [[id number]] Collected: 08/19/22 1330 Lab Status: Final result Specimen: Blood Updated: 08/24/22 1501 Blood Culture No growth at 5 days. Legionella Urinary Antigen [[id number]] Collected: 08/18/22 1013 Lab Status: Final result Specimen: Urine Updated: 08/18/22 2252 Legionella Urinary Antigen Negative Comment: A negative Legionella Urinary Antigen by EIA suggests no recent or current infection with L. pneumophila Serogroup 1. Antigen may not be present in urine in early infection, and the level of antigen present in the urine may be below the detection limit of the test. Sensitivity: 95% Specificity 95%. Urine culture Indwelling Catheter Urine; Other; sepsis, bacteria on UA [[id number]] Collected: 08/15/22 1225 Lab Status: Final result Specimen: Indwelling Catheter Urine Updated: 08/16/22 0804 Urine Culture 1,000-9,000 cfu/ml Insignificant growth COVID-19 PCR [[id number]] Collected: 08/15/22 1150 Lab Status: Final result Specimen: Nasopharyngeal Swab Updated: 08/15/22 1501 SARS-CoV-2 RNA PCR Not Detected Comment: This result should be interpreted in combination with the clinical observations, patient history and epidemiological information. For testing of asymptomatic individuals, assay performance characteristics and clinical utility have not been evaluated. Testing for SARS-CoV-2 (Severe acute respiratory syndrome coronavirus 2, formerly known as 2019 novel coronavirus or 2019-nCoV) to aid in the diagnosis of COVID-19 is performed using the Simplexa COVID-19 Direct Assay by [employer] as authorized by the FDA issued Emergency Use Authorization (EUA). This assay is intended for In-vitro Diagnostic (IVD) use with nasopharyngeal swabs collected from individuals meeting the CDC criteria for testing. The assay is performed based on the instructions for use and additional guidance provided by the FDA. Testing is performed in the Microbiology Laboratory within the Department of Pathology and Laboratory Medicine at [facility], certified under the Clinical Laboratory Improvement Amendments of 1988 (CLIA), 42 U.S.C. section 263a, to perform high complexity tests. Assay performance has been verified according to clinical laboratory regulatory requirements. Test results are provided above. A result of Not Detected indicates that the viral RNA target is not present but does not preclude SARS-CoV-2 infection. False negative results may occur if a specimen is improperly collected, transported or handled; if amplification inhibitors are present; or if inadequate numbers of viral particles are present in the specimen. A result of Detected suggests a current or recent infection and the patient is presumed to be infected. Positive and negative predictive values for this test are highly dependent on disease prevalence. A result of Invalid indicates the inability to conclusively determine the presence or absence of SARS-CoV-2 RNA in the sample which can be due to a variety of factors. Recollection is recommended in the case of an invalid result. CDC COVID-19 criteria for testing on human specimens and clinical management guidance information are available at the CDC Coronavirus Disease 2019 (COVID-19) webpage under Information for Healthcare Professionals (https://www.cdc.gov/coronavirus/2019-ncov/hcp/index.html). Additional information about this and other EUA tests can be found in provider and patient fact sheets at the following FDA website: https://www.fda.gov/medical-devices/kisxtansgyd-hxefmxu-6444-pnvma-59-bmefxmwth- aic-elejaxenturwwp-benlvlm-devices/eazxe-gjnmcvswrmc-cqhe SARS-CoV-2 Source PLANT SUPERVISOR Swab Lower Respiratory Culture Sputum Induced [[id number]] Collected: 08/15/22 0740 Lab Status: Final result Specimen: Sputum Induced Updated: 08/17/22 1015 Lower Respiratory Culture Rare normal upper respiratory wiley Gram Stain -- Many Neutrophils Few squamous epithelial cells Rare mixed bacterial morphotypes suggestive of normal upper respiratory wiley Blood culture [[id number]] Collected: 08/15/22 0110 Lab Status: Final result Specimen: Blood Updated: 08/20/22 0701 Blood Culture No growth at 5 days. MRSA PCR Screen ([facility]/CGP/APD/NL) [[id number]] Collected: 08/15/22 0050 Lab Status: Final result Specimen: Nasopharyngeal Swab Updated: 08/17/22 1419 MRSA Result Negative MRSA Interp -- Methicillin-resistant Staphylococcus aureus (MRSA) is NOT DETECTED The MRSA target DNA sequences (mec and SCC) were not detected within the acceptable ranges using the Xpert MRSA NxG on the GeneXpert Dx System ([employer]). This suggests the absence of MRSA in the patient specimen submitted for testing. This test is cleared by the U.S. Food and Drug Administration for clinical use and its performance characteristics have been verified by the [facility] at [facility]. This result does not rule out the presence of any other organisms. Rare false negative results may occur if MRSA is present at low concentrations with much higher concentrations of other organisms including MRSE or S. aureus with an empty SCC cassette. Comment: [VERIFIED DATE]08.17.22 Verified By:Shannon Smiley (Electronic Signature) Blood culture [[id number]] Collected: 08/14/22 2354 Lab Status: Final result Specimen: Blood Updated: 08/20/22 07 Blood Culture No growth at 5 days. Imaging/Diagnostics: Results for orders placed or performed during the hospital encounter of 08/14/22 XR Chest One View (Exam End: 08/15/2022 1:00 AM) Impression FINDINGS/IMPRESSION: * Moderate pulmonary edema. * No confluent airspace opacity otherwise seen. * Cannot exclude small pleural effusions. * Cardiomediastinal contours appear within normal limits. * Endotracheal tube tip projects 3.8 cm above the consuelo. * RIGHT neck central catheter, distal catheter coiled over the region of the RIGHT ventricle and pulmonary trunk. Thank you for letting us participate in the care of this patient. If you are a health care provider and have any questions regarding this report, please contact the number below. For patients who have questions please contact the health acute care physician that requested your imaging first. Abdomen 1 view (Generic) (Exam End: 08/15/2022 8:33 AM) Impression The enteric tube sidehole is not definitively subdiaphragmatic. Recommend advancement. Preliminary report signed by: Carlos Wolff at 08/15/2022 9:00 AM I have personally reviewed the image(s) and the resident's interpretation and agree with the findings, Liliane Adams MD at 08/15/2022 9:05 AM Thank you for letting us participate in the care of this patient. If you are a health care provider and have any questions regarding this report, please contact the number below. For patients who have questions please contact the health acute care physician that requested your imaging first. Electronically signed by: Liliane Adams MD, [facility] ([phone]), at 08/15/2022 9:05 AM XR Chest One View (Exam End: 08/15/2022 1:14 AM) Impression FINDINGS/IMPRESSION: * RIGHT neck central catheter redemonstrated terminating over the region of the pulmonary trunk, now uncoiled distally although the tip is looped. * Moderate pulmonary edema redemonstrated. * ET tube projects similar. Thank you for letting us participate in the care of this patient. If you are a health care provider and have any questions regarding this report, please contact the number below. For patients who have questions please contact the health acute care physician that requested your imaging first. Abdomen 1 view (Generic) (Exam End: 08/15/2022 6:38 AM) Impression Nonspecific/nondiagnostic appearance of the abdomen, with large stool burden in the RIGHT hemiabdomen and pelvis. Thank you for letting us participate in the care of this patient. If you are a health care provider and have any questions regarding this report, please contact the number below. For patients who have questions please contact the health acute care physician that requested your imaging first. Chest One View (Exam End: 08/16/2022 10:31 AM) Impression PA catheter has a persistent loop near the tip, similar to the prior comparison study. Improved pulmonary edema. Thank you for letting us participate in the care of this patient. If you are a health care provider and have any questions regarding this report, please contact the number below. For patients who have questions please contact the health acute care physician that requested your imaging first. Electronically signed by: Alfonso Adams MD, [facility] ([phone]), at 08/16/2022 10:[address] Head wo Contrast (Generic) (Exam End: 08/16/2022 10:44 PM) Impression No acute intracranial abnormality and no change from prior Thank you for letting us participate in the care of this patient. If you are a health care provider and have any questions regarding this report, please contact the number below. For patients who have questions please contact the health acute care physician that requested your imaging first. Electronically signed by: Moustapha Correa MD, [facility] ([phone]), at 08/16/2022 11:19 PM XR Abdomen 1 view (Generic) (Exam End: 08/17/2022 12:09 PM) Impression Status post Dobbhoff tube placement with catheter tip terminating at the approximate position of greater curvature. I have personally reviewed the image(s) and the resident's interpretation and agree with the findings, Jenn Pina MD at 08/17/2022 2:31 PM Thank you for letting us participate in the care of this patient. If you are a health care provider and have any questions regarding this report, please contact the number below. For patients who have questions please contact the health acute care physician that requested your imaging first. Head wo Contrast (Generic) (Exam End: 08/18/2022 3:14 PM) Impression No acute intracranial process. Thank you for letting us participate in the care of this patient. If you are a health care provider and have any questions regarding this report, please contact the number below. For patients who have questions please contact the health acute care physician that requested your imaging first. Electronically signed by: Antonio Jordan MD, [facility] ([phone]), at 08/18/2022 3:18 PM XR Chest One View (Exam End: 08/19/2022 12:30 PM) Impression 1. Increased bibasilar airspace opacities compared to radiograph 08/16/2022, concerning for an infectious/inflammatory process. A component of edema not excluded. 2. Overall decreased pulmonary edema. I have personally reviewed the image(s) and the resident's interpretation and agree with the findings, Alan De Guzman MD at 08/19/2022 3:14 PM Thank you for letting us participate in the care of this patient. If you are a health care provider and have any questions regarding this report, please contact the number below. For patients who have questions please contact the health acute care physician that requested your imaging first. Electronically signed by: lAan De Guzman MD, [facility] ([phone]), at 08/19/2022 3:14 PM MRI Brain wo Contrast (Exam End: 08/19/2022 10:15 PM) Impression No acute infarction, mass or mass effect. Thank you for letting us participate in the care of this patient. If you are a health care provider and have any questions regarding this report, please contact the number below. For patients who have questions please contact the health acute care physician that requested your imaging first. Chest for Verifying Vascular Access PICC Placement At Bedside (Exam End: 08/19/2022 4:36 PM) Impression PICC tip is in the superior vena cava above the right atrium. Thank you for letting us participate in the care of this patient. If you are a health care provider and have any questions regarding this report, please contact the number below. For patients who have questions please contact the health acute care physician that requested your imaging first. Electronically signed by: Alan De Guzman MD, [facility] ([phone]), at 08/19/2022 4:[address] Hip w Contrast Left (Exam End: 08/20/2022 11:04 PM) Impression 1. Uncomplicated left femoral neck ORIF with unchanged postoperative alignment. 2. Moderate skin thickening and subcutaneous stranding about the lateral left hip with lateral left thigh intramuscular edema and fascial thickening. These findings are nonspecific and may be seen in the routine postoperative setting. Underlying soft tissue infection with infectious or inflammatory myositis may also have this appearance. Correlation with physical examination, clinical symptoms, and laboratory findings is recommended. 3. 2.3 x 1.6 x 1.8 cm focus of more coalescent fluid attenuation centered in the subcutaneous fat of the posterolateral thigh roughly at the level of the proximal femoral fixation screw heads. There is no rim-enhancing to suggest a mature, organized abscess at this time. However, this finding could represent phlegmon in appropriate clinical context, or it could represent a postsurgical collection, the contents of which may be sterile or infected. 4. There is a rectal tube in place. However, there remains a large stool ball in the rectum with free fluid versus coalescent edema on both the anterior and posterior margins of the distended rectum. In appropriate clinical context, these findings could represent proctocolitis or stercoral colitis. I have personally reviewed the image(s) and the resident's interpretation and agree with the findings, Aicha Chowdhury MD at 08/21/2022 9:34 AM Thank you for letting us participate in the care of this patient. If you are a health care provider and have any questions regarding this report, please contact the number below. For patients who have questions please contact the health acute care physician that requested your imaging first. Electronically signed by: Aicha Chowdhury MD, [facility] ([phone]), at 08/21/2022 9:[address] Chest w Contrast (Exam End: 08/20/2022 11:04 PM) Impression 1. Multifocal lower lobe predominant consolidative opacities with additional upper lobe opacities consistent with multifocal pneumonia. Compared to the prior CT of 08/12/2022 the number and size of the opacities has decreased. Recommend follow-up imaging in 3-6 months to document complete resolution. 2. New small, sub-1 cm early cavitation of multiple opacities predominantly within the posterior left upper lobe and left lower lobe. 3. New curvilinear splenic lesions could represent infarct versus late arterial phase splenic arterial opacification. Thank you for letting us participate in the care of this patient. If you are a health care provider and have any questions regarding this report, please contact the number below. For patients who have questions please contact the health acute care physician that requested your imaging first. Hip 2-3 Views Left (Exam End: 08/22/2022 12:19 AM) Impression No radiographic evidence of infection. Thank you for letting us participate in the care of this patient. If you are a health care provider and have any questions regarding this report, please contact the number below. For patients who have questions please contact the health acute care physician that requested your imaging first. Electronically signed by: Viktor Cervantes MD, [facility] ([phone]), at 08/22/2022 12:43 PM XR Pelvis (Generic) (Exam End: 08/22/2022 12:19 AM) Impression No radiographic evidence of infection status post left hip ORIF. Thank you for letting us participate in the care of this patient. If you are a health care provider and have any questions regarding this report, please contact the number below. For patients who have questions please contact the health acute care physician that requested your imaging first. Electronically signed by: Richard Billings MD, [facility] ([phone]), at 08/22/2022 10:[address] Angiogram Coronary Arteries (Exam End: 08/27/2022 8:58 AM) Impression Coronary calcium score of 0, consistent with no detectable calcified atherosclerotic plaque burden. No evidence of stenosing soft plaque on the coronary CT arteriogram. CAD RADS 0 Ongoing bilateral pulmonary infectious/inflammatory changes with persistent consolidative opacity especially in the left lower lobe. This could represent a multifocal pneumonia. Recommend follow-up CT in 3 months to assess for resolution. Thank you for letting us participate in the care of this patient. If you are a health care provider and have any questions regarding this report, please contact the number below. For patients who have questions please contact the health acute care physician that requested your imaging first. Electronically signed by: Arlette Mays MD, [facility] ([phone]), at 08/27/2022 11:[address] Chest wo Contrast (Generic) (Exam End: 08/27/2022 8:58 AM) Impression Stable findings of multifocal pneumonia. No interval abnormality. Thank you for letting us participate in the care of this patient. If you are a health care provider and have any questions regarding this report, please contact the number below. For patients who have questions please contact the health acute care physician that requested your imaging first. Electronically signed by: MINH QUIROGA MD, [facility] ([phone]), at 08/27/2022 10:48 AM XR Fluoro Barium Swallow (Modified/Video Swallow Pharynx) (Exam End: 08/31/2022 11:23 AM) Impression Abnormal modified barium swallow as above. Please see speech pathology report for further discussion. Thank you for letting us participate in the care of this patient. If you are a health care provider and have any questions regarding this report, please contact the number below. For patients who have questions please contact the health acute care physician that requested your imaging first. Electronically signed by: Aron Billings MD, [facility] ([phone]), at 08/31/2022 12:02 PM XR Fluoro Barium Swallow (Modified/Video Swallow Pharynx) (Exam End: 09/04/2022 10:25 AM) Impression 1. Penetration of the airway and aspiration with thin liquids, especially with rapid sips of thin barium. 2. Flash penetration of nectar thick liquids from a straw. 3. Reflux of residual barium within the esophagus on multiple swallows. I have personally reviewed the image(s) and the resident's interpretation and agree with the findings, Alfonso Adams MD at 09/04/2022 10:57 AM Thank you for letting us participate in the care of this patient. If you are a health care provider and have any questions regarding this report, please contact the number below. For patients who have questions please contact the health acute care physician that requested your imaging first. Electronically signed by: Alfonso Adams MD, [facility] ([phone]), at 09/04/2022 10:57 AM XR Abdomen 1 view (Generic) (Exam End: 09/04/2022 9:47 PM) Impression 1. On the chest radiograph at 2136 hours the enteric tube projects over the mid esophagus. On the abdominal radiograph at 2139 hours the enteric tube now projects below the diaphragm with tip partially visualized projecting over the left mid abdomen. 2. Lower lobe predominant patchy and reticular airspace opacities consistent with sequela of multifocal pneumonia. The appearance is improved compared to prior radiograph. Thank you for letting us participate in the care of this patient. If you are a health care provider and have any questions regarding this report, please contact the number below. For patients who have questions please contact the health acute care physician that requested your imaging first. Chest One View (Exam End: 09/04/2022 9:47 PM) Impression 1. On the chest radiograph at 2136 hours the enteric tube projects over the mid esophagus. On the abdominal radiograph at 2139 hours the enteric tube now projects below the diaphragm with tip partially visualized projecting over the left mid abdomen. 2. Lower lobe predominant patchy and reticular airspace opacities consistent with sequela of multifocal pneumonia. The appearance is improved compared to prior radiograph. Thank you for letting us participate in the care of this patient. If you are a health care provider and have any questions regarding this report, please contact the number below. For patients who have questions please contact the health acute care physician that requested your imaging first. Chest One View (Exam End: 09/05/2022 9:24 AM) Impression 1. Reposition enteric tube now extending below the diaphragm and included [id number]. 2. Similar appearance of elevated right hemidiaphragm and linear/patchy bibasilar opacities which may represent atelectasis or possibly aspiration. Thank you for letting us participate in the care of this patient. If you are a health care provider and have any questions regarding this report, please contact the number below. For patients who have questions please contact the health acute care physician that requested your imaging first. Electronically signed by: AUDI PERDOMO MD, [facility] ([phone]), at 09/05/2022 3:43 PM Medications: Scheduled: ??? buPROPion 100 mg Per NG tube Daily ??? melatonin 6 mg Per NG tube Nightly ??? metoprolol tartrate 12.5 mg Per NG tube 2 times per day ??? QUEtiapine 100 mg Per NG tube Nightly ??? sacubitriL-valsartan 1 tablet Per NG tube BID ??? valproic acid 300 mg Per NG tube Q6H ??? insulin glargine (Lantus;Semglee) (100 unit/mL) subcutaneous injection 10 Units Subcutaneous Daily ??? insulin lispro 1-10 Units Subcutaneous Q4H LAZARUS ??? miconazole nitrate Topical (Top) BID ??? empagliflozin 10 mg Oral Daily ??? lidocaine 3 patch Transdermal Q24H ??? ergocalciferoL (vitamin D2) 50,000 Units Per NG tube Weekly ??? enoxaparin 40 mg Subcutaneous Daily ??? atorvastatin 80 mg Per NG tube QPM ??? folic acid 1,000 mcg Per NG tube Daily ??? ferrous sulfate 300 mg Per NG tube Every Other Day ??? chlorhexidine 15 mL Oral BID ??? pantoprazole 40 mg Intravenous BID ??? sodium chloride 0.9 % (flush) 5 mL Intravenous BID ??? thiamine 100 mg Intravenous Daily Continuous: ??? tube feeding diet Stopped (09/07/222146) PRN: prochlorperazine, ondansetron, diclofenac, acetaminophen, polyethylene glycoL, senna, bisacodyL, sodium chloride 0.9 % (flush), lidocaine, glucose 40% oral geL OR dextrose 10% OR glucagon ASSESSMENT and PLAN: Ishan Irving is a 62 y.o. 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.5 years) c/b chronic pancreatitis, iron deficiency anemia,??GE RD??c/b??esophagitis &??Farrell's esophagus, who was admitted to [facility] on 08/14/2022 (now on Hospital Day #23) for mixed shock and stress cardiomyopathy who transferred to Hospital Medicine due to persistent dysphagia. 09/08/22 Ishan is doing well today and is happy to be in a different room. Given recent episode of prior aspiration event and ongoing dysphagia, will plan for PEG placement with surgery today. 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 Today's plan: - Continue tube feeds - Diabetes Team aware and titrating insulin accordingly - Surgery consulted for PEG placement today # Bipolar Disorder - Continue Seroquel 100mg nightly for now, patient and want it uptitrated before discharge - C/w valproate 300mg q6h - GAS STATION SUPERVISOR following, NPO at present - Psychiatry Consult, appreciate recs, recommended starting Wellbutrin - Continue Wellbutrin 100mg IR as other formulations cannot be crushed for NG # Medication-induced Parkinsonism # Dysphagia - Continue tube feeds - Diabetes Team aware and titrating insulin accordingly - Surgery consulted for PEG placement today?? # Acute hypoxic respiratory failure, resolved # Bilateral airspace opacities/multifocal pneumonia, resolved -??Respiratory support with LFNC PRN - Antibiotics: Status post zosyn for pneumonia, stopped per ID - Fungitell and Fungal Cx positive, no change in management at this time per ID - CT Chest showed persistent pneumonia; ID followed, patient completed course of antibioitics ?? # Distributive Shock, resolved # NSTEMI Type I vs Type II, resolved # HFrEF (EF 25%) #Stress Cardiomyopathy - Will not perform LHC given results of CTA coronary arteries. - ASA 81mg - Entresto 24-26 1 tab BID - Metoprolol 25mg daily, starting 08/30 as tartrate for Dobhoff - Spironolactone 12.5mg QD (held starting 08/30 in setting of NPO status) - Empagliflozin 10mg as part of GDT - She will need a repeat TTE at some point to assess for resolution/improvement of presumed stress induced cardiomyopathy - Mg >1, K >4 ?? # GERD c/b Farrell's esophagus & esophagitis # Constipation- resolved # Rectal wall edema 2/2 stool ball - Has Miralax, senna, dulcolax PRN ordered - Continue home pantoprazole 40 BID - As discussed with GI, EGD is not indicated at this time as she has had one done in the recent past. ?? # Insulin-dependent diabetes -??Diabetes Management consulted, appreciate recs # Mixed JERRICA and ACD - Oral iron supplementation started 08/21 > s/p 1 dose of Venofer - Ferritin, Iron, TIBC resulted; mixed picture - Transfuse for Hb <8 - S/p 1u pRBC 08/22 ?? # Septic shock # Bilateral airspace opacities/multifocal pneumonia # L Hip Fluid Collection # Subcentimeter left posterior upper lobe cavitary lesions - Infectious work-up initially did not yield any clear causative organisms - S/p BAL 08/21 without any growth to date. - IR, orthopedic surgery consulted for evaluation of L hip fluid collection. No intervention/drainable target. - Stopped zosyn as per ID (08/14- 08/23) - Fungal testing positive no change in management at this time per ID #Housekeeping: DVT PPx: LMWH GI PPx: Diet: NPO diet (Give Meds) Lines: PICC Line - Double Lumen 04/12/23 1655 basilic vein (medial side of arm), right 5 Fr (Active) Number of days: 19 D/c planning: Acute rehab Code status: Attempt Cardiopulmonary Resuscitation - Inpatient Chau Keith MD Internal Medicine PGY1 Medicine Team: Joes Juan, Pager #[phone] Date: 09/08/2022 Associated attestation - Molina Flores MD - 09/11/2022 12:05 PM EDT Attending Attestation and Certification Please see Chau Keith MD's note for details of the patient history of presentation and data. I have discussed, reviewed and agree with the documented History, Physical findings, Assessment and Plan of care. I have examined the patient myself and personally reviewed all studies. In addition, I certify thatI am a [facility] credentialed attending provider with admitting privileges and that the patient meets or has met medical necessity to require an inpatient IPI level of care meeting a minimum of two midnights or is on the [facility] inpatient only procedure list (status C) due to: mixed shock , stress cardiomyopathy, aspiration pneumonia with underlying persistent dysphagia 2/2 stenosis at the Farrell esophagus site. * Crissy Barker RN - 09/07/2022 9:57 PM EDT OUTCOME EVALUATION NOTE: OUTCOME SUMMARY: Patient AO x 4, VSS on RA. No complains of pain. No episode of N/V. Medications given. DHT noted intact and patent taped on tip of the nose. Hold TF as cyclic and endorse to the RN. BG checked as ordered with insulin coverage per JUL. For transfer to floor, report given to L1WC RN. * Petty Mccullough SLP - 09/07/2022 4:51 PM EDT Speech-Language Pathology Contact Note: GAS STATION SUPERVISOR following for swallow, cognitive intervention. Discussed with nursing this AM, pending potential PEG today and NPO with TF held. TF restarted this PM but I was unable to return due to scheduling limitations. G[employer] STATION SUPERVISOR team will follow up at later date for ongoing therapy, please secure chat/page withquestions/concerns. Thank you. Petty Mccullough M.S., [facility] STATION SUPERVISOR Inpatient Speech-Pathology Pager: [phone] * Feroz Portillo, [employer] - 09/07/2022 2:50 PM EDT Physical Therapy Note Treatment Number PT: 9 Patient profile: Ishan Irving is a 62 y.o. female admitted on 08/14/2022 with a medical history notable for??recent L femoral neck fracture,??bipolar disorder, resolving medication-induced Parkinsonism, insulin-dependent diabetes mellitus,??hx of alcohol use disorder (reported to be in remission for 1.5 years) c/b chronic pancreatitis, iron deficiency anemia,??GERD??c/b??esophagitis &??Farrell's esophagus??presenting in transfer from [facility], suspected to be in cardiogenic shock and found to be in mixed shock with concern for stress cardiomyopathy. She is s/p ORIF left femoral neck fracture ~ 08/08 at [facility]. Interval History: Moved to [facility], dost. [facility] placed Social History: single level home w ramp to enter. 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 Pt drives, does all community chores. Does have a RW avail at home which she had been using since ORIF. Fall Hx: Spouse reports that pt slipped in a puddle of water left by the dog which is the cause of her hip fx Precautions/Special Considerations: WBAT L leg, Fall risk, dobhoff Mobility and Positioning Recommendations: ?? Pt able to stand pivot transfer with FWW and 2 assist ?? Please encourage up to chair for meal times as able. Subjective: I'm motivated by completing goals Objective: Patient seen for physical therapy and demonstrated the following: Pain: no c/o pain Vital Signs: stable on room air. ?? Pt supine in bed, agreeable to therapy ?? Performed LE exercises, heel slides, manually resisted leg extension, ankle pumps/circles, hip abd/add and resisted abd/add, bridging ?? Supine to sit, HOB slightly elevated, Min A for trunk ?? Steady sitting edge of bed, extra time required to scoot toward the edge ?? Stand pivot transfer from bed to recliner chair, FWW, Min A x 2, cues for walker management, pt sits prematurely on the edge of the chair, able to scoot her hips backward ?? Brought recliner into hallway to ambulation ?? Sit<->Stand x 10 from recliner chair to FWW, Min A x 2 ?? Ambulated ~35 ft with FWW and Min A, chair follow, multiple short walks occasionally sitting without warning, distances ranged from 3 ft to 12 ft, extra time required ?? Short rest breaks in between each walk, frequently setting short distance goals for pt to meet throughout the ambulation task ?? Pt left supine in bed, with all needs met and with call marshall in reach following visit. Education: Pt edu re: goals of rx, activity progression Assessment: Ishan Irving was seen today for physical therapy treatment session for continuation of POC. Motivated for therapy today and performed multiple stands and short distance walks. Able to walk ~12 ft at the longest with chair follow and Min A for balance, unsteady but slowly increasing confidence. Moderate functional strength with transfers, and required only short rest breaks in between walks. Continues to be appropriate for acute rehab to progress mobility, anticipate greater gains with more frequent mobility. Pt will benefit from ongoing therapeutic interventions to achievetherapy goals. Discharge Recommendations: Based on the current findings, Anticipated Discharge Disposition (PT): acute rehabilitation facility when medically ready for hospital discharge. Consult Recommendations: No other consults recommended at this time. Equipment needs: none Anticipated Equipment Needs at Discharge (PT): to be determined Physical Therapy Goals: To be achieved by 09/07/22: Ongoing ?? 1. Pt. will demonstrate understanding of appropriate exercises and perform them independently or with family. 2. Pt. will perform bed mobility with modified independence. 3. Pt. will perform sit to stand transfers with min A using a front wheeled walker. 4. Pt. will ambulate 10 feet with mod A using a a front wheeled walker. Met Pt. will ascend/descend step/stairs sufficient for home using rail and assist of 1 Plan: Therapy Frequency (PT): 2-4 times/wk for skilled PT rx as outlined in initial evaluation. Patient agrees with plan as stated. Time IN / OUT: 14:05-14:50 Total Minutes, Physical Therapy: 45 Billing Code: TE-F x 3 FEROZ PORTILLO PTA Pager: [phone] Physical Therapy Inpatient Rehabilitation Department * Shanice Carrera, RD - 09/07/2022 2:38 PM EDT Nutrition Progress Note Ishan Irving is a 62 y.o.??female??with h/o bipolar, DM, EtOH, esophagitis, who presented to [facility] 3 days ago after being found unresponsive at home.?Patient found to have likely pneumonia +/- aspiration, newly reduced EF. Reason for Assessment: Tube Feeding, Follow-up Nutrition Recommendations: Enteral Nutrition: New: Cyclic Peptamen AF at 90ml/hr for 14 hrs from 1251-9196 (pended). At goal, this will provide: Peptamen AF Total Volume Per Day: 1260 mL Scoops of Protein: 0 Calories per Day: 1512 Protein per Day: 96 g Free Water mL per Day: 1023 % RDI: 101 % Monitor hydration status on above TFs as they are concentrated. Pt may need additional fluids depending on IVFs, med flushes, p.o. Intake, etc. Diet per G[employer]ATION SUPERVISOR Continue 50,000 units vitamin D weekly; 1000 mcg folic acid and 100 mg thiamine daily. Monitor lytes. Replete as indicated Monitor BM. Goal of one every 24-48hrs while on EN Monitor weight to trend I was able to discuss plan with provider Murphy Manzano [id number] Current Nutrition Regimen: Active Orders Diet NPO diet (Give Meds) Frequency: Effective Now Number of Occurrences: Until Specified All Active TF Orders: Tubefeeding Orders (From admission, onward) Start Dose/Rate Route Frequency Ordered Stop 08/31/22 1745 tube feeding diet 1,320 mL 110 mL/hr Per NG tube Cyclic-(Tube feed) 08/31/221650 Cyclic Peptamen AF at 110ml/hr for 12hrs from 8034-5404 (see updated order above as of 09/07). Average tube feeding provision over past 3 days: 60% of goal. Tolerance or barriers to meeting needs: Intermittent holds r/t nausea & vomiting. Assessment: Lab Results Component Value Date NA 138 09/07/2022 K 4.6 09/07/2022 CL 103 09/07/2022 CO2 29 09/07/2022 BUN 22 (H) 09/07/2022 CREATININE 0.53 (L) 09/07/2022 ESTGFR 105 09/07/2022 MAGNESIUM 0.86 09/07/2022 CALCIUM 9.4 09/07/2022 PHOS 3.0 09/07/2022 AST 39 (H) 08/20/2022 ALT 20 08/20/2022 ALKPHOS 213 (H) 08/20/2022 BILITOT <0.2 (L) 08/20/2022 BILIDIR 0.1 08/20/2022 TRIG 127 08/29/2022 CRP 19.4 (H) 08/21/2022 HA1C 6.2 (H) 08/15/2022 25OHVITD 12 (L) 08/24/2022 IRON 25 (L) 08/21/2022 Lab Results Component Value Date POCGLU 153 09/07/2022 POCGLU 150 09/07/2022 POCGLU 135 09/07/2022 POCGLU 127 09/07/2022 POCGLU 184 09/06/2022 POCGLU 177 09/06/2022 Patient Lines/Drains/Airways Status Active Nutritional LDAs Name Placement date Placement time Site Days Naso/Oral Tube 09/04/222049 small bore;nasogastric right nostril 09/04/222049 right nostril 3 PICC Line - Double Lumen 08/19/221654 basilic vein (medial side of arm), right 5 Fr 08/19/22 1655 -- 19 External Catheter 08/23/22 1100 08/23/22 1100 -- 15 Physical Findings Gastrointestinal: feeding tube Oxygen Therapy / Airway Device: None (Room air) Shift Pressure Injury Prevention Occiput: No Injury Thoracic Spine: No Injury Sacral: No Injury Ischial - left: No Injury Ischial - right: No Injury Heel - left: No Injury Heel - right: No Injury Elbow - left: No Injury Elbow - right: No Injury Device Sites: NGT, O2 sat monitor, oxygen tubing, IV sites, ECG Leads, BP Cuff Other Sites: external catheter Last Bowel Movement: 10/05/22 Intake/Output Summary (Last 24 hours) at 09/07/2022 1438 Last data filed at 09/07/2022 1323 Gross per 24 hour Intake 2545 ml Output 725 ml Net 1820 ml Relevant medications: Jardiance, Lovenox, Vitamin D2, Ferrous Sulfate, Folic Acid, Insulin, Protonix, Thiamine, Zofran Anthropometrics: Admit Weight: 69 kg Estimated body mass index is 27.6 kg/m?? as calculated from the following: Height as of 08/19/22: 152.4 cm (5'). Weight as of this encounter: 64.1 kg (141 lb 5 oz). [place] Body Weight (IBW) (kg): 45.45 Usual Body Weight: 70.3 kg (155 lb) Wt Readings from Last 10 Encounters: 09/07/22 64.1 kg (141 lb 5 oz) 08/19/22 73.1 kg (161 lb 2.5 oz) 07/03/22 69.9 kg (154 lb) 03/31/22 74.4 kg (164 lb) 02/12/22 78.7 kg (173 lb 9.6 oz) 09/23/21 78.5 kg (173 lb) 03/01/20 79.4 kg (175 lb) 11/22/18 80.3 kg (177 lb) 12/13/14 86.5 kg (190 lb 12.8 oz) 03/20/14 94 kg (207 lb 3.7 oz) Patient Vitals for the past 168 hrs: Weight 09/07/22 0617 64.1 kg (141 lb 5 oz) 09/04/22 0554 68.9 kg (152 lb) 09/03/22 0600 69.9 kg (154 lb) 09/02/22 0550 70.1 kg (154 lb 8 oz) 09/01/22 0600 68.1 kg (150 lb 3.2 oz) Weight Source: Bed Estimated / Assessed Needs: Fluid Requirements (mL/day): 2562 mL [place] Kcal / K - 1737.5 Kcal (20 Kcal/Kg - 25 Kcal/Kg) Estimated Protein Needs: 83.4 - 104.25 g (1.2 g/Kg - 1.5 g/Kg) Nutrition intake and intake history / interview: 09/07: TF f/u - nausea and vomiting noted yesterday, TF held. Pt seen at bedside and reports feeling bloated. Per RN, pt w/ another episode of emesis this afternoon (~75 mL). Updated TF order pended - increasing cyclic feeds to 14 hours for reduced rate, ~60 mL less total volume that previous order, still meeting calorie and protein goals. Wt hx reflects 9# wt loss x 3 days - question accuracy. 09/03: Second MBS scheduled for Wednesday. Pending results will transition to oral diet or to a standard formula. Wt stable and tolerating formula so far. 08/31: Pending MBS results diet will advance or will continue w/ TF. No intolerance noted and pt notcurrently experiencing hunger. Wt trending down, below admit wt and UBW, will increase TF provision. 08/27: Pt had 7 BM on 08/25 r/t liquid tylenol, d/c per this proposal lead writer's request as liquid tylenol acts as a purgative. BM have slowed and formed since then. Adjusted EN to allow for pt to lay flat at night and increased kcal as pt is now floor status. 08/24: Phos continues to trend low but above 2.0. Pt reports no feelings of hunger at this time, will continue EN at current rate. Wt trending down, but appears consistent w/ wts from 06/2022. Pt does have some wt loss since 02/2022 but is not clinically significant. Will continue to monitor. 08/21: Phos continues to trend low but above 2.0 today (2.4). More responsive than in previous days,but still intubated. Attempting SBT today. Wt relatively stable at this time. Had 1st BM since admit 08/20, will continue to monitor BM and consistency. If stool remain liquid should dc liquid tylenolas it can cause loose stools. 08/18: Phos <2.0 since 08/18 w/ 60mmol of repletion since then, phos 1.4 this AM. EN advanced to goal this AM w/o signs of intolerance. Wt up 4kg since admission and intermittently receiving diuretics, -0.5L since admission 08/17: TF recs as above. Nutrition Focused Physical Exam: Not performed Malnutrition Diagnosis: Not identified (NOLAN Mendez J Parenteral Enteral Nutr. 2011; 36(3): 273-83) Nutrition to continue to follow up while inpatient Shanice Carrera RD Pager #:[phone] * Elsie Erickson, CELL OPERATION SUPERVISOR - 09/07/2022 1:39 PM EDT Follow Up Diabetes Consult Patient Interview Blood glucose values and insulin use reviewed. Annalee has not been able to tolerate the TF at increased rate, I think its just too much volume for me. RN reports emesis 3x yesterday requiring that the TF be paused. Today, also an episode of emesis and she reports nausea. Primary team did reach out earlier for recs regarding a mixed insulin dose to be administered at start of TF. Objective Temp: [36.4 ??C (97.5 ??F)-36.8 ??C (98.2 ??F)] Heart Rate: [60-98] Resp: [16-22] BP: (98-133)/(51-75) SpO2: [90 %-100 %] Heart Rate from SpO2: -- Current Regimen from previous note Lantus:10??units?? Humalog??75/25??mixed insulin: HOLD until TFs at goal and pt is tolerating. Lispro for correction q 4 hours based on a correction factor of??20?? Diet??sips and chips and Peptamen AF with goal of 110 mls/hr Monitoring:??Q4 Recent Glucose Levels Recent Labs 09/07/22 1126 09/07/22 0746 09/07/22 0408 09/07/22 0029 09/06/22 2154 09/06/22 1646 09/06/22 1257 09/06/22 0906 09/06/22 0339 09/05/22 2329 09/05/22 2220 04/29/23 1917 POCGLU 153 150 135 127 184 177 176 162 102 94 106 225* ASSESSMENT Ishan Irving is a 62 year old female with a medical history notable for??recent L femoral neck fracture,??bipolar disorder, resolving medication- induced Parkinsonism, insulin-dependent diabetesmellitus,??hx of alcohol use disorder (reported to be in remission for 1.5 years) c/b chronic pancreatitis, iron deficiency anemia,??GERD??c/b??esophagitis &??Farrell's esophagus??presenting in transfer from [facility], suspected to be in cardiogenic shock and found to be in mixed shock with concern for stress cardiomyopathy.??A1C of 6.2% upon admission suggesting an average BG of??131??mg/dL for the past 6-8 weeks. Currently has variability of blood glucose levels while hospitalized requiring adjustment of insulin regimen and DM medications. ?? Patient still has not tolerated TF at goal. Nutrition has been contacted to trouble shoot issues that seem to be related to volume. She received 9 units of correction insulin yesterday. According to nursing she did receive the entire feed just over an extended period, could not tolerate over 12 hours cycled 6 a to 6p. In a full feed she is receiving 148 grams of carbohydrates. When feed was running at 98mls she was receiving mixed insulin based on a 1:4 ICR with good control. I think we need tocontinue with correction and hold off on mixed insulin until she is tolerating the feed to prevent hypoglycemia that would result if TF were to be held after mixed insulin administered. PLAN Lantus:10??units?? Humalog??75/25??mixed insulin: HOLD until TFs at goal and pt is tolerating. Lispro for correction q 4 hours based on a correction factor of??20?? Diet??sips and chips and Peptamen AF with goal of 110 mls/hr Monitoring:??Q4 Elsie Erickson APRN [facility] Endocrinology Diabetes Management Pager [phone] 20 minutes of this 35 minute visit was spent with the patient in counseling on diabetes and treatment plan, reviewing all glucose and insulin data as well as relevant laboratory results with the patient, and coordination of care on the inpatient unit including nursing and primary team. * Richard Felix MD - 09/07/2022 8:30 AM EDT General Surgery Consultation Note Date of Consultation: 09/07/2022 Consult Service: General Surgery History of Present Illness: Ishan Irving is a 62 y.o. 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.5 years) c/b chronic pancreatitis, iron deficiency anemia,??GE RD??c/b??esophagitis &??Farrell's esophagus, who was admitted to [facility] on 08/14/2022 (now on Hospital Day #21), and transferred to Hospital Medicine team from Cardiology on 08/30 for mixed shock withconcern for stress cardiomyopathy (Takotsubo Cardiomyopathy). Due to her history of GERD, and intubation during this hospital stay, she consequently suffered dysphagia, failing a modified barium swallow. Prior to the MBS, she had a Dobbhoff tube in place for enteral access. Enteral access is urgent within 24 hours for this patient because she experienced catatonic bipolar episodes during this hospitalization which only bupropion were able to alleviate, withno IV alternative. The patient reports that her last off tube was very uncomfortable and that she does not wish to repeat the experience. However she is amenable to PEG. She has a number of documented scopes for GERD but no documented surgeries. She is not on anticoagulation or steroids. 24 hr events. -NAEON, unable to bridle DHT - tolerating TF. Physical Exam: Last Set of Vitals and Range over past 24 hours: Last value Range last 24 hrs Temperature Temp: 36.4 ??C (97.5 ??F) Temp: [36.4 ??C (97.5 ??F)-36.9 ??C (98.4 ??F)] Heart Rate Heart Rate: 77 Heart Rate: [68-98] Blood Pressure BP: 124/65 BP: (98-133)/(48-75) Respiratory Rate Resp: 18 Resp: [16-22] SpO2 SpO2: 97 % SpO2: [90 %-97 %] BMI: Weight: 64.1 kg (141 lb 5 oz) (09/07/22 0617) BMI (Calculated): 31.77 BMI Classification: Obese Physical Exam General: NAD, resting comfortably HEENT: NCAT , DHT to right nare. CVS: RR Pulm: NWOB Abd: Non-distended, soft, nontender. Ext: WWP Neuro: Grossly intact to conversation with slowed affect Laboratory (Last 24 Hours): Recent Labs 09/07/22 0030 WBC 6.2 HGB 9.1* HCT 30.5* PLATELET 286 Lab Results Component Value Date INR 2.0 08/15/2022 Radiology: N/A Assessment: Ishan Irving is a 62 y.o. Female in need of durable enteral access as well as urgent enteral access for PO medications due to dysphagia. She was amenable to an NG tube to bridge her to a morepermanent solution next week as it appears her dysphagia will be chronic. NAEON. Recommendations: - planned for PEG tomorrow. NPO past midnight. Consult service will continue to follow patient. Discussed with Dr. Isidro Cantu MD 09/07/2022 Attending Addendum I have seen and examined the patient and reviewed the history documented above and I agree with thedetails as written. I have reviewed the laboratory data and viewed the pertinent imaging. The assessment and plan were formulated in discussion with me and I agree with them as documented. 62 yo female in need of durable enteral access. Will plan to move forward with PEG this week pending OR availability. Ricardo Felix MD * Chau Keith MD - 09/07/2022 6:53 AM EDT Images from the original note were not included. Inpatient Hospital Medicine Progress Note 09/07/2022 Patient Name: ISHAN IRVING Date of : 1960 Age: 62 y.o. Hospital Admit Date: 08/14/2022 Hospital Day: 24 Inpatient Attending: Molina Flores MD PCP: Chris Stanley APRN ([phone]) ID: Ishan Irving is a 62 y.o. 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.5 years) c/b chronic pancreatitis, iron deficiency anemia, ??GERD??c/b??esophagitis &??Farrell's esophagus, who was admitted to [facility] on 08/14/2022 (now on Hospital Day #24) for mixed shock and stress cardiomyopathy who transferred to Hospital Medicine due to persistent dysphagia. 24 HOUR EVENTS & SUBJECTIVE: Yesterday: - Doing okay. - Planning for PEG in coming days. - Did have an episode of vomiting in the afternoon with unclear cause. Overnight: - No acute events overnight Today AM: - Reports mild nausea with tube feeds - Denies any other acute complaints OBJECTIVE: Vitals: Last value Range last 24 hrs Temperature Temp: 36.4 ??C (97.5 ??F) Temp: [36.4 ??C (97.5 ??F)-36.9 ??C (98.4 ??F)] Heart Rate Heart Rate: 77 Heart Rate: [68-98] Blood Pressure BP: 124/65 BP: (98-133)/(48-75) Art Line BP BP (Arterial Line): 111/70 BP (Arterial Line): -- MAP (NBP): [67 mmHg-92 mmHg] Respiratory Rate Resp: 18 Resp: [16-21] SpO2 SpO2: 97 % SpO2: [90 %-97 %] Oxygen Delivery Oxygen Therapy O2 Device: None (Room air) O2 Flow Rate (L/min): 2 L/min FiO2 (%): 21 % Reason for Oxygen: Patient currently on room air Intake/Output Summary (Last 24 hours) at 09/07/2022 1130 Last data filed at 09/07/2022 1039 Gross per 24 hour Intake 2196 ml Output 650 ml Net 1546 ml I/O last 3 completed shifts: In: 2336 [I.V.:500; NG/GT:1776] Out: 950 [Urine:850; Emesis/NG output:100] Last Bowel Movement: 10/05/22 Body mass index is 27.6 kg/m??. Patient Vitals for the past 168 hrs: Weight 09/07/22 0617 64.1 kg (141 lb 5 oz) 09/04/22 0554 68.9 kg (152 lb) 09/03/22 0600 69.9 kg (154 lb) 09/02/22 0550 70.1 kg (154 lb 8 oz) 09/01/22 0600 68.1 kg (150 lb 3.2 oz) Admit wt: 69 kg Physical Exam: GENERAL: Awake, no acute distress, dobhoff in place w/tape HEENT: Anicteric, no conjunctival injection CV: RRR, no murmurs/rubs/gallops, 2+ radial/DP pulses PULM: Normal respiratory effort, CTA with good air entry bilaterally, coarse bibasilar breath sounds minimal ABDOMEN: Soft, non-tender, non-distended, no masses, no guarding EXTREMITIES: No lower extremity edema. No clubbing or cyanosis PSYCH/NEURO: morose affect, intact cognition, no tremor SKIN: Warm, dry, no rashes LABS: CBC: Recent Labs 09/07/22 0030 09/06/220 09/05/2210509/04/22 0026 09/03/22 0040 WBC 6.2 6.3 4.9 6.7 5.1 HGB 9.1* 8.6* 8.7* 8.5* 8.4* HCT 30.5* 29.0* 29.0* 28.1* 27.1* PLATELET 286 297 314 300 305 NEUTROABS 2.71 2.64 1.88 4.05 2.19 Chemistry: Recent Labs 09/07/22 0030 09/06/22 0100 09/05/2210509/04/22 0026 09/03/22 0040 NA 138 139 140 141 138 K 4.6 4.3 3.8 4.3 4.1 CL 103 104 103 104 102 CO2 29 28 28 29 29 BUN 22* 21* 21* 30* 28* CREATININE 0.53* 0.49* 0.49* 0.53* 0.49* GLUCOSE 144 95 95 131 107 ANIONGAP 6 7 9 8 7 Recent Labs 09/07/22 0030 09/06/22 0100 09/05/22 0106 09/04/22 0026 09/03/22 0040 CALCIUM 9.4 9.5 9.5 9.4 9.2 MAGNESIUM 0.86 0.81 0.91 0.88 0.96 PHOS 3.0 3.6 3.9 3.2 3.4 LFT's: Recent Labs 08/20/22 1400 08/15/22 0950 08/15/22 0305 BILITOT <0.2* <0.2* 0.2 BILIDIR 0.1 0.1 0.1 ALBUMIN 2.5* 2.4* 2.4* ALKPHOS 213* 102 99 ALT 20 12 13 AST 39* 21 25 Cardiac enzymes: Recent Labs 08/19/22 0120 08/14/22 2355 CK 32 -- PROBNP -- >35,000* Endocrine: Recent Labs 08/20/22 1400 08/15/22 0000 TSH 1.90 0.28 Recent Labs 08/15/22 0305 HA1C 6.2* CRP, Sed Rate Recent Labs 08/21/22 1200 CRP 19.4* SEDRATE >119* Lipids: Lab Results Component Value Date CHLPL 110 08/29/2022 HDL 34 08/29/2022 CHOLHDL 3.2 08/29/2022 TRIG 127 08/29/2022 LDLCHOL 51 08/29/2022 EKG: Lab Results Component Value Date/Time DIAGLINE 09/07/2022 0635 Normal sinus rhythm with sinus arrhythmia Low voltage QRS T wave abnormality, consider inferior ischemia T wave abnormality, consider anterolateral ischemia Abnormal ECG When compared with ECG of 01-SEP-2022 02:24, No significant change was found QTCCALC 455 09/07/2022 0635 Microbiology: Lab Results Component Value Date/Time URINECULTURE 1,000-9,000 cfu/ml Insignificant growth 08/15/2022 1225 Lab Results Component Value Date/Time BLOODCX No growth at 5 days. 08/19/2022 1720 BLOODCX No growth at 5 days. 08/19/2022 1330 BLOODCX No growth at 5 days. 08/15/2022 0110 BLOODCX No growth at 5 days. 08/14/2022 2355 Microbiology Results (Last 30 days) Procedure Component Value Units Date/Time Lower Respiratory Culture Bronchial Alveolar Lavage [[id number]] Collected: 08/21/22 1650 Lab Status: Final result Specimen: Bronchial Alveolar Lavage Updated: 08/23/22 0741 Lower Respiratory Culture Rare mixed bacterial morphotypes suggestive of normal upper respiratory wiley Gram Stain -- Few Neutrophils seen No squamous epithelial cells seen No microorganisms seen. Fungus Culture & Calc Stain Bronchial Alveolar Lavage [[id number]] (Abnormal) Collected: 08/21/221649 Lab Status: Preliminary result Specimen: Bronchial Alveolar Lavage Updated: 08/24/22 1452 AFB culture Bronchial Alveolar Lavage [[id number]] Collected: 08/21/221649 Lab Status: Preliminary result Specimen: Bronchial Alveolar Lavage Updated: 08/24/22 2219 Acid Fast Bacilli Culture -- No Acid Fast Bacilli isolated to date If active tuberculosis is suspected, the patient should be on [employer] PRECAUTIONS. Call Infection Prevention for assistance if needed. Acid Fast Stain No Acid Fast Bacilli seen Fungus culture [[id number]] (Abnormal) Collected: 08/21/221649 Lab Status: Preliminary result Specimen: Bronchial Alveolar Lavage Updated: 08/24/22 145 Fungus Culture Rare Jacky albicans Calcofluor White Stain [[id number]] Collected: 08/21/221649 Lab Status: Final result Specimen: Bronchial Alveolar Lavage Updated: 08/21/222015 Calcofluor Stain Calcofluor White Preparation: Negative Lower Respiratory Culture Bronchial Alveolar Lavage [[id number]] Collected: 08/21/221644 Lab Status: Final result Specimen: Bronchial Alveolar Lavage Updated: 08/23/22 0741 Lower Respiratory Culture Rare mixed bacterial morphotypes suggestive of normal upper respiratory wiley Gram Stain -- Moderate Neutrophils seen No squamous epithelial cells seen No microorganisms seen. Fungus Culture & Calc Stain Bronchial Alveolar Lavage [[id number]] (Abnormal) Collected: 08/21/221644 Lab Status: Preliminary result Specimen: Bronchial Alveolar Lavage Updated: 08/24/22 1453 AFB culture Bronchial Alveolar Lavage [[id number]] Collected: 08/21/221644 Lab Status: Preliminary result Specimen: Bronchial Alveolar Lavage Updated: 08/24/22 2221 Acid Fast Bacilli Culture -- No Acid Fast Bacilli isolated to date If active tuberculosis is suspected, the patient should be on [employer] PRECAUTIONS. Call Infection Prevention for assistance if needed. Acid Fast Stain No Acid Fast Bacilli seen Fungus culture [[id number]] (Abnormal) Collected: 08/21/221644 Lab Status: Preliminary result Specimen: Bronchial Alveolar Lavage Updated: 08/24/22 145 Fungus Culture Rare Jacky albicans Calcofluor White Stain [[id number]] Collected: 08/21/22 1645 Lab Status: Final result Specimen: Bronchial Alveolar Lavage Updated: 08/21/22 2017 Calcofluor Stain Calcofluor White Preparation: Negative Blood culture [[id number]] Collected: 08/19/22 1720 Lab Status: Final result Specimen: Blood Updated: 08/24/22 2301 Blood Culture No growth at 5 days. Lower Respiratory Culture Sputum Induced [[id number]] Collected: 08/19/22 1451 Lab Status: Final result Specimen: Sputum Induced Updated: 08/21/22 0948 Lower Respiratory Culture Rare mixed bacterial morphotypes suggestive of normal upper respiratory wiley Gram Stain -- Many Neutrophils seen Few squamous epithelial cells seen No microorganisms seen. Blood culture [[id number]] Collected: 08/19/22 1330 Lab Status: Final result Specimen: Blood Updated: 08/24/22 1501 Blood Culture No growth at 5 days. Legionella Urinary Antigen [[id number]] Collected: 08/18/22 1013 Lab Status: Final result Specimen: Urine Updated: 08/18/22 2252 Legionella Urinary Antigen Negative Comment: A negative Legionella Urinary Antigen by EIA suggests no recent or current infection with L. pneumophila Serogroup 1. Antigen may not be present in urine in early infection, and the level of antigen present in the urine may be below the detection limit of the test. Sensitivity: 95% Specificity 95%. Urine culture Indwelling Catheter Urine; Other; sepsis, bacteria on UA [[id number]] Collected: 08/15/22 1225 Lab Status: Final result Specimen: Indwelling Catheter Urine Updated: 08/16/22 0804 Urine Culture 1,000-9,000 cfu/ml Insignificant growth COVID-19 PCR [[id number]] Collected: 08/15/22 1150 Lab Status: Final result Specimen: Nasopharyngeal Swab Updated: 08/15/22 1501 SARS-CoV-2 RNA PCR Not Detected Comment: This result should be interpreted in combination with the clinical observations, patient history and epidemiological information. For testing of asymptomatic individuals, assay performance characteristics and clinical utility have not been evaluated. Testing for SARS-CoV-2 (Severe acute respiratory syndrome coronavirus 2, formerly known as 2019 novel coronavirus or 2019-nCoV) to aid in the diagnosis of COVID-19 is performed using the Simplexa COVID-19 Direct Assay by [employer] as authorized by the FDA issued Emergency Use Authorization (EUA). This assay is intended for In-vitro Diagnostic (IVD) use with nasopharyngeal swabs collected from individuals meeting the CDC criteria for testing. The assay is performed based on the instructions for use and additional guidance provided by the FDA. Testing is performed in the Microbiology Laboratory within the Department of Pathology and Laboratory Medicine at [facility], certified under the Clinical Laboratory Improvement Amendments of 1988 (CLIA), 42 U.S.C. section 263a, to perform high complexity tests. Assay performance has been verified according to clinical laboratory regulatory requirements. Test results are provided above. A result of Not Detected indicates that the viral RNA target is not present but does not preclude SARS-CoV-2 infection. False negative results may occur if a specimen is improperly collected, transported or handled; if amplification inhibitors are present; or if inadequate numbers of viral particles are present in the specimen. A result of Detected suggests a current or recent infection and the patient is presumed to be infected. Positive and negative predictive values for this test are highly dependent on disease prevalence. A result of Invalid indicates the inability to conclusively determine the presence or absence of SARS-CoV-2 RNA in the sample which can be due to a variety of factors. Recollection is recommended in the case of an invalid result. CDC COVID-19 criteria for testing on human specimens and clinical management guidance information are available at the CDC Coronavirus Disease 2019 (COVID-19) webpage under Information for Healthcare Professionals (https://www.cdc.gov/coronavirus/2019-ncov/hcp/index.html). Additional information about this and other EUA tests can be found in provider and patient fact sheets at the following FDA website: https://www.fda.gov/medical-devices/tagzclstmci-mrngnry-8329-puvtz-85-eesljfafo- ydi-bzbxszkhbaspdt-nphjcbk-devices/hqgbu-embulhrhdty-cmwe SARS-CoV-2 Source [employer] Swab Lower Respiratory Culture Sputum Induced [[id number]] Collected: 08/15/22 0740 Lab Status: Final result Specimen: Sputum Induced Updated: 08/17/22 1015 Lower Respiratory Culture Rare normal upper respiratory wiley Gram Stain -- Many Neutrophils Few squamous epithelial cells Rare mixed bacterial morphotypes suggestive of normal upper respiratory wiley Blood culture [[id number]] Collected: 08/15/22 0110 Lab Status: Final result Specimen: Blood Updated: 08/20/22 0701 Blood Culture No growth at 5 days. MRSA PCR Screen ([facility]/CGP/APD/NLH) [[id number]] Collected: 08/15/22 0050 Lab Status: Final result Specimen: Nasopharyngeal Swab Updated: 08/17/22 1419 MRSA Result Negative MRSA Interp -- Methicillin-resistant Staphylococcus aureus (MRSA) is NOT DETECTED The MRSA target DNA sequences (mec and SCC) were not detected within the acceptable ranges using the Xpert MRSA NxG on the GeneXpert Dx System ([employer]). This suggests the absence of MRSA in the patient specimen submitted for testing. This test is cleared by the U.S. Food and Drug Administration for clinical use and its performance characteristics have been verified by the [facility] at [facility]. This result does not rule out the presence of any other organisms. Rare false negative results may occur if MRSA is present at low concentrations with much higher concentrations of other organisms including MRSE or S. aureus with an empty SCC cassette. Comment: [VERIFIED DATE]08.17.22 Verified By:Shannon Smiley (Electronic Signature) Blood culture [[id number]] Collected: 08/14/22 2355 Lab Status: Final result Specimen: Blood Updated: 08/20/22700 Blood Culture No growth at 5 days. Imaging/Diagnostics: Results for orders placed or performed during the hospital encounter of 08/14/22 XR Chest One View (Exam End: 08/15/2022 1:00 AM) Impression FINDINGS/IMPRESSION: * Moderate pulmonary edema. * No confluent airspace opacity otherwise seen. * Cannot exclude small pleural effusions. * Cardiomediastinal contours appear within normal limits. * Endotracheal tube tip projects 3.8 cm above the consuelo. * RIGHT neck central catheter, distal catheter coiled over the region of the RIGHT ventricle and pulmonary trunk. Thank you for letting us participate in the care of this patient. If you are a health care provider and have any questions regarding this report, please contact the number below. For patients who have questions please contact the health acute care physician that requested your imaging first. Abdomen 1 view (Generic) (Exam End: 08/15/2022 8:33 AM) Impression The enteric tube sidehole is not definitively subdiaphragmatic. Recommend advancement. Preliminary report signed by: Carlos Wolff at 08/15/2022 9:00 AM I have personally reviewed the image(s) and the resident's interpretation and agree with the findings, Liliane Adams MD at 08/15/2022 9:05 AM Thank you for letting us participate in the care of this patient. If you are a health care provider and have any questions regarding this report, please contact the number below. For patients who have questions please contact the health acute care physician that requested your imaging first. Electronically signed by: Liliane Adams MD, [facility] ([phone]), at 08/15/2022 9:05 AM XR Chest One View (Exam End: 08/15/2022 1:14 AM) Impression FINDINGS/IMPRESSION: * RIGHT neck central catheter redemonstrated terminating over the region of the pulmonary trunk, now uncoiled distally although the tip is looped. * Moderate pulmonary edema redemonstrated. * ET tube projects similar. Thank you for letting us participate in the care of this patient. If you are a health care provider and have any questions regarding this report, please contact the number below. For patients who have questions please contact the health acute care physician that requested your imaging first. Abdomen 1 view (Generic) (Exam End: 08/15/2022 6:38 AM) Impression Nonspecific/nondiagnostic appearance of the abdomen, with large stool burden in the RIGHT hemiabdomen and pelvis. Thank you for letting us participate in the care of this patient. If you are a health care provider and have any questions regarding this report, please contact the number below. For patients who have questions please contact the health acute care physician that requested your imaging first. Chest One View (Exam End: 08/16/2022 10:31 AM) Impression PA catheter has a persistent loop near the tip, similar to the prior comparison study. Improved pulmonary edema. Thank you for letting us participate in the care of this patient. If you are a health care provider and have any questions regarding this report, please contact the number below. For patients who have questions please contact the health acute care physician that requested your imaging first. Electronically signed by: Alfonso Adams MD, [facility] ([phone]), at 08/16/2022 10:[address] Head wo Contrast (Generic) (Exam End: 08/16/2022 10:44 PM) Impression No acute intracranial abnormality and no change from prior Thank you for letting us participate in the care of this patient. If you are a health care provider and have any questions regarding this report, please contact the number below. For patients who have questions please contact the health acute care physician that requested your imaging first. Electronically signed by: Moustapha Correa MD, [facility] ([phone]), at 08/16/2022 11:19 PM XR Abdomen 1 view (Generic) (Exam End: 08/17/2022 12:09 PM) Impression Status post Dobbhoff tube placement with catheter tip terminating at the approximate position of greater curvature. I have personally reviewed the image(s) and the resident's interpretation and agree with the findings, Jenn Pina MD at 08/17/2022 2:31 PM Thank you for letting us participate in the care of this patient. If you are a health care provider and have any questions regarding this report, please contact the number below. For patients who have questions please contact the health acute care physician that requested your imaging first. Head wo Contrast (Generic) (Exam End: 08/18/2022 3:14 PM) Impression No acute intracranial process. Thank you for letting us participate in the care of this patient. If you are a health care provider and have any questions regarding this report, please contact the number below. For patients who have questions please contact the health acute care physician that requested your imaging first. Electronically signed by: Antonio Jordan MD, [facility] ([phone]), at 08/18/2022 3:18 PM XR Chest One View (Exam End: 08/19/2022 12:30 PM) Impression 1. Increased bibasilar airspace opacities compared to radiograph 08/16/2022, concerning for an infectious/inflammatory process. A component of edema not excluded. 2. Overall decreased pulmonary edema. I have personally reviewed the image(s) and the resident's interpretation and agree with the findings, Alan De Guzman MD at 08/19/2022 3:14 PM Thank you for letting us participate in the care of this patient. If you are a health care provider and have any questions regarding this report, please contact the number below. For patients who have questions please contact the health acute care physician that requested your imaging first. Electronically signed by: Alan De Guzman MD, [facility] ([phone]), at 08/19/2022 3:14 PM MRI Brain wo Contrast (Exam End: 08/19/2022 10:15 PM) Impression No acute infarction, mass or mass effect. Thank you for letting us participate in the care of this patient. If you are a health care provider and have any questions regarding this report, please contact the number below. For patients who have questions please contact the health acute care physician that requested your imaging first. Chest for Verifying Vascular Access PICC Placement At Bedside (Exam End: 08/19/2022 4:36 PM) Impression PICC tip is in the superior vena cava above the right atrium. Thank you for letting us participate in the care of this patient. If you are a health care provider and have any questions regarding this report, please contact the number below. For patients who have questions please contact the health acute care physician that requested your imaging first. Electronically signed by: Alan De Guzman MD, [facility] ([phone]), at 08/19/2022 4:[address] Hip w Contrast Left (Exam End: 08/20/2022 11:04 PM) Impression 1. Uncomplicated left femoral neck ORIF with unchanged postoperative alignment. 2. Moderate skin thickening and subcutaneous stranding about the lateral left hip with lateral left thigh intramuscular edema and fascial thickening. These findings are nonspecific and may be seen in the routine postoperative setting. Underlying soft tissue infection with infectious or inflammatory myositis may also have this appearance. Correlation with physical examination, clinical symptoms, and laboratory findings is recommended. 3. 2.3 x 1.6 x 1.8 cm focus of more coalescent fluid attenuation centered in the subcutaneous fat of the posterolateral thigh roughly at the level of the proximal femoral fixation screw heads. There is no rim-enhancing to suggest a mature, organized abscess at this time. However, this finding could represent phlegmon in appropriate clinical context, or it could represent a postsurgical collection, the contents of which may be sterile or infected. 4. There is a rectal tube in place. However, there remains a large stool ball in the rectum with free fluid versus coalescent edema on both the anterior and posterior margins of the distended rectum. In appropriate clinical context, these findings could represent proctocolitis or stercoral colitis. I have personally reviewed the image(s) and the resident's interpretation and agree with the findings, Aicha Chowdhury MD at 08/21/2022 9:34 AM Thank you for letting us participate in the care of this patient. If you are a health care provider and have any questions regarding this report, please contact the number below. For patients who have questions please contact the health acute care physician that requested your imaging first. Electronically signed by: Aicha Chowdhury MD, [facility] ([phone]), at 08/21/2022 9:[address] Chest w Contrast (Exam End: 08/20/2022 11:04 PM) Impression 1. Multifocal lower lobe predominant consolidative opacities with additional upper lobe opacities consistent with multifocal pneumonia. Compared to the prior CT of 08/12/2022 the number and size of the opacities has decreased. Recommend follow-up imaging in 3-6 months to document complete resolution. 2. New small, sub-1 cm early cavitation of multiple opacities predominantly within the posterior left upper lobe and left lower lobe. 3. New curvilinear splenic lesions could represent infarct versus late arterial phase splenic arterial opacification. Thank you for letting us participate in the care of this patient. If you are a health care provider and have any questions regarding this report, please contact the number below. For patients who have questions please contact the health acute care physician that requested your imaging first. Hip 2-3 Views Left (Exam End: 08/22/2022 12:19 AM) Impression No radiographic evidence of infection. Thank you for letting us participate in the care of this patient. If you are a health care provider and have any questions regarding this report, please contact the number below. For patients who have questions please contact the health acute care physician that requested your imaging first. Electronically signed by: [facility] ([phone]), at 08/22/2022 12:43 PM XR Pelvis (Generic) (Exam End: 08/22/2022 12:19 AM) Impression No radiographic evidence of infection status post left hip ORIF. Thank you for letting us participate in the care of this patient. If you are a health care provider and have any questions regarding this report, please contact the number below. For patients who have questions please contact the health acute care physician that requested your imaging first. Electronically signed by: Richard Billings MD, [facility] ([phone]), at 08/22/2022 10:[address] Angiogram Coronary Arteries (Exam End: 08/27/2022 8:58 AM) Impression Coronary calcium score of 0, consistent with no detectable calcified atherosclerotic plaque burden. No evidence of stenosing soft plaque on the coronary CT arteriogram. CAD RADS 0 Ongoing bilateral pulmonary infectious/inflammatory changes with persistent consolidative opacity especially in the left lower lobe. This could represent a multifocal pneumonia. Recommend follow-up CT in 3 months to assess for resolution. Thank you for letting us participate in the care of this patient. If you are a health care provider and have any questions regarding this report, please contact the number below. For patients who have questions please contact the health acute care physician that requested your imaging first. Electronically signed by: Arlette Mays MD, [facility] ([phone]), at 08/27/2022 11:[address] Chest wo Contrast (Generic) (Exam End: 08/27/2022 8:58 AM) Impression Stable findings of multifocal pneumonia. No interval abnormality. Thank you for letting us participate in the care of this patient. If you are a health care provider and have any questions regarding this report, please contact the number below. For patients who have questions please contact the health acute care physician that requested your imaging first. Electronically signed by: MINH QUIROGA MD, [facility] ([phone]), at 08/27/2022 10:48 AM XR Fluoro Barium Swallow (Modified/Video Swallow Pharynx) (Exam End: 08/31/2022 11:23 AM) Impression Abnormal modified barium swallow as above. Please see speech pathology report for further discussion. Thank you for letting us participate in the care of this patient. If you are a health care provider and have any questions regarding this report, please contact the number below. For patients who have questions please contact the health acute care physician that requested your imaging first. Electronically signed by: Aron Billings MD, [facility] ([phone]), at 08/31/2022 12:02 PM XR Fluoro Barium Swallow (Modified/Video Swallow Pharynx) (Exam End: 09/04/2022 10:25 AM) Impression 1. Penetration of the airway and aspiration with thin liquids, especially with rapid sips of thin barium. 2. Flash penetration of nectar thick liquids from a straw. 3. Reflux of residual barium within the esophagus on multiple swallows. I have personally reviewed the image(s) and the resident's interpretation and agree with the findings, Alfonso Adams MD at 09/04/2022 10:57 AM Thank you for letting us participate in the care of this patient. If you are a health care provider and have any questions regarding this report, please contact the number below. For patients who have questions please contact the health acute care physician that requested your imaging first. Electronically signed by: Alfonso Adams MD, [facility] ([phone]), at 09/04/2022 10:57 AM XR Abdomen 1 view (Generic) (Exam End: 09/04/2022 9:47 PM) Impression 1. On the chest radiograph at 2136 hours the enteric tube projects over the mid esophagus. On the abdominal radiograph at 2139 hours the enteric tube now projects below the diaphragm with tip partially visualized projecting over the left mid abdomen. 2. Lower lobe predominant patchy and reticular airspace opacities consistent with sequela of multifocal pneumonia. The appearance is improved compared to prior radiograph. Thank you for letting us participate in the care of this patient. If you are a health care provider and have any questions regarding this report, please contact the number below. For patients who have questions please contact the health acute care physician that requested your imaging first. Chest One View (Exam End: 09/04/2022 9:47 PM) Impression 1. On the chest radiograph at 2136 hours the enteric tube projects over the mid esophagus. On the abdominal radiograph at 2139 hours the enteric tube now projects below the diaphragm with tip partially visualized projecting over the left mid abdomen. 2. Lower lobe predominant patchy and reticular airspace opacities consistent with sequela of multifocal pneumonia. The appearance is improved compared to prior radiograph. Thank you for letting us participate in the care of this patient. If you are a health care provider and have any questions regarding this report, please contact the number below. For patients who have questions please contact the health acute care physician that requested your imaging first. Chest One View (Exam End: 09/05/2022 9:24 AM) Impression 1. Reposition enteric tube now extending below the diaphragm and included [id number]. 2. Similar appearance of elevated right hemidiaphragm and linear/patchy bibasilar opacities which may represent atelectasis or possibly aspiration. Thank you for letting us participate in the care of this patient. If you are a health care provider and have any questions regarding this report, please contact the number below. For patients who have questions please contact the health acute care physician that requested your imaging first. Electronically signed by: AUDI PERDOMO MD, [facility] ([phone]), at 09/05/2022 3:43 PM Medications: Scheduled: ??? buPROPion 100 mg Per NG tube Daily ??? melatonin 6 mg Per NG tube Nightly ??? metoprolol tartrate 12.5 mg Per NG tube 2 times per day ??? QUEtiapine 100 mg Per NG tube Nightly ??? sacubitriL-valsartan 1 tablet Per NG tube BID ??? valproic acid 300 mg Per NG tube Q6H ??? insulin glargine (Lantus;Semglee) (100 unit/mL) subcutaneous injection 10 Units Subcutaneous Daily ??? insulin lispro 1-10 Units Subcutaneous Q4H LAZARUS ??? miconazole nitrate Topical (Top) BID ??? empagliflozin 10 mg Oral Daily ??? lidocaine 3 patch Transdermal Q24H ??? ergocalciferoL (vitamin D2) 50,000 Units Per NG tube Weekly ??? enoxaparin 40 mg Subcutaneous Daily ??? atorvastatin 80 mg Per NG tube QPM ??? folic acid 1,000 mcg Per NG tube Daily ??? ferrous sulfate 300 mg Per NG tube Every Other Day ??? chlorhexidine 15 mL Oral BID ??? pantoprazole 40 mg Intravenous BID ??? sodium chloride 0.9 % (flush) 5 mL Intravenous BID ??? thiamine 100 mg Intravenous Daily Continuous: ??? tube feeding diet 110 mL/hr at 09/07/22 0839 PRN: ondansetron, diclofenac, acetaminophen, polyethylene glycoL, senna, bisacodyL, sodium chloride0.9 % (flush), lidocaine, glucose 40% oral geL OR dextrose 10% OR glucagon ASSESSMENT and PLAN: Ishan Irving is a 62 y.o. 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.5 years) c/b chronic pancreatitis, iron deficiency anemia,??GE RD??c/b??esophagitis &??Farrell's esophagus, who was admitted to [facility] on 08/14/2022 (now on Hospital Day #23) for mixed shock and stress cardiomyopathy who transferred to Hospital Medicine due to persistent dysphagia. 09/07/22 Ishan is doing well today although is looking forward to getting a different room as she finds itdifficult to sleep in her current room. Given recent episode of prior aspiration event and ongoing dysphagia, will plan for PEG placement with IR this week. 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 Today's plan: - Continue tube feeds - Diabetes Team aware and titrating insulin accordingly - IR consulted for PEG placement this week # Bipolar Disorder - Continue Seroquel 100mg nightly for now, patient and want it uptitrated before discharge - C/w valproate 300mg q6h - [employer] following, NPO at present - Psychiatry Consult, appreciate recs, recommended starting Wellbutrin - Continue Wellbutrin 100mg IR as other formulations cannot be crushed for NG # Medication-induced Parkinsonism # Dysphagia - Continue tube feeds - Diabetes Team aware and titrating insulin accordingly - IR consulted for PEG placement this week ?? # Acute hypoxic respiratory failure, resolved # Bilateral airspace opacities/multifocal pneumonia, resolved -??Respiratory support with LFNC PRN - Antibiotics: Status post zosyn for pneumonia, stopped per ID - Fungitell and Fungal Cx positive, no change in management at this time per ID - CT Chest showed persistent pneumonia; ID followed, patient completed course of antibioitics ?? # Distributive Shock, resolved # NSTEMI Type I vs Type II, resolved # HFrEF (EF 25%) #Stress Cardiomyopathy - Will not perform LHC given results of CTA coronary arteries. - ASA 81mg - Entresto 24-26 1 tab BID - Metoprolol 25mg daily, starting 08/30 as tartrate for Dobhoff - Spironolactone 12.5mg QD (held starting 08/30 in setting of NPO status) - Empagliflozin 10mg as part of GDT - She will need a repeat TTE at some point to assess for resolution/improvement of presumed stress induced cardiomyopathy - Mg >1, K >4 ?? # GERD c/b Farrell's esophagus & esophagitis # Constipation- resolved # Rectal wall edema 2/2 stool ball - Has Miralax, senna, dulcolax PRN ordered - Continue home pantoprazole 40 BID - As discussed with GI, EGD is not indicated at this time as she has had one done in the recent past. ?? # Insulin-dependent diabetes -??Diabetes Management consulted, appreciate recs # Mixed JERRICA and ACD - Oral iron supplementation started 08/21 > s/p 1 dose of Venofer - Ferritin, Iron, TIBC resulted; mixed picture - Transfuse for Hb <8 - S/p 1u pRBC 08/22 ?? # Septic shock # Bilateral airspace opacities/multifocal pneumonia # L Hip Fluid Collection # Subcentimeter left posterior upper lobe cavitary lesions - Infectious work-up initially did not yield any clear causative organisms - S/p BAL 08/21 without any growth to date. - IR, orthopedic surgery consulted for evaluation of L hip fluid collection. No intervention/drainable target. - Stopped zosyn as per ID (08/14- 08/23) - Fungal testing positive no change in management at this time per ID #Housekeeping: DVT PPx: LMWH GI PPx: Diet: NPO diet (Give Meds) Lines: PICC Line - Double Lumen 08/19/22 1655 basilic vein (medial side of arm), right 5 Fr (Active) Number of days: 18 D/c planning: Acute rehab Code status: Attempt Cardiopulmonary Resuscitation - Inpatient Chau Keith MD Internal Medicine PGY1 Medicine Team: Jose Juan, Pager #[phone] Date: 09/07/2022 Associated attestation - Molina Flores MD - 09/11/2022 12:05 PM EDT Attending Attestation and Certification Please see Chau Keith MD's note for details of the patient history of presentation and data. I have discussed, reviewed and agree with the documented History, Physical findings, Assessment and Plan of care. I have examined the patient myself and personally reviewed all studies. In addition, I certify thatI am a [facility]-H credentialed attending provider with admitting privileges and that the patient meets or has met medical necessity to require an inpatient IPI level of care meeting a minimum of two midnights or is on the [facility] inpatient only procedure list (status C) due to: mixed shock , stress cardiomyopathy, aspiration pneumonia with underlying persistent dysphagia 2/2 stenosis at the Farrell esophagus site. * Parris Bowens RN - 09/06/2022 8:27 PM EDT 62 year old female seen and cared for today. Remains alert and oriented x4. Has had intermittent complaints of nausea today and at time tube feed was held for up to one hour until nausea subsided. Medicated with zofran which was fairly effective. Was able to complete tube feed, but at least one hour later than expected due to frequent holds for complaints of nausea. Vomited clear slimy liquid x2.Denied other distress and remain stable. Continue current treatment plan * Jigar Streeter MD - 09/06/2022 7:54 AM EDT Images from the original note were not included. Inpatient [facility] Medicine Progress Note 09/06/2022 Patient Name: ISHAN IRVING Date of : 1960 Age: 62 y.o. Hospital Admit Date: 08/14/2022 Hospital Day: 23 Inpatient Attending: Richard Pascal MD PCP: Chris Stanley APRN ([phone]) ID: Ishan Irving is a 62 y.o. 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.5 years) c/b chronic pancreatitis, iron deficiency anemia, ??GERD??c/b??esophagitis &??Farrell's esophagus, who was admitted to [facility] on 08/14/2022 (now on Hospital Day #23) for mixed shock and stress cardiomyopathy who transferred to Hospital Medicine due to persistent dysphagia. 24 HOUR EVENTS & SUBJECTIVE: Yesterday: Poor performance on MBS on Wednesday; organizing with surgery for PEG placement. Replaced her Dobhoff.Patient perhaps aspirated with dobhoff replacement, was transferred briefly to ISCU, then doing great and transferred back from ISCU to floor. Overnight: - 2200: episode of word salad that lasted 5 minutes. Language nonsensical such as pickles are turning on the TV but also said at one point I'm sorry I'm not making any sense right now. Because ofthis, seems less likely TIA/stroke- did not scan her head. Resolved within 5 minutes and she was back to baseline. BP was a little soft (SBP 90s), but otherwise VSS (No bradycardia). Giving a small 500 cc bolus of LR. Today AM: pt reports the following: Patient reports she feels tired today from poor sleep overnight but otherwise well. Looking forwardto leaving her current room. OBJECTIVE: Vitals: Last value Range last 24 hrs Temperature Temp: 36.4 ??C (97.5 ??F) Temp: [36.4 ??C (97.5 ??F)-36.7 ??C (98.1 ??F)] Heart Rate Heart Rate: 61 Heart Rate: [61-84] Blood Pressure BP: 111/58 BP: (92-118)/(50-61) Art Line BP BP (Arterial Line): 111/70 BP (Arterial Line): -- MAP (NBP): [67 mmHg-75 mmHg] Respiratory Rate Resp: 16 Resp: [16-22] SpO2 SpO2: 99 % SpO2: [92 %-99 %] Oxygen Delivery Oxygen Therapy O2 Device: Nasal cannula O2 Flow Rate (L/min): 2 L/min FiO2 (%): 21 % Reason for Oxygen: New documented hypoxia Intake/Output Summary (Last 24 hours) at 09/06/2022 0754 Last data filed at 09/06/2022 0543 Gross per 24 hour Intake 958.33 ml Output 600 ml Net 358.33 ml I/O last 3 completed shifts: In: 1691.3 [I.V.:500; NG/GT:1091.3] Out: 800 [Urine:800] Last Bowel Movement: 09/04/22 Body mass index is 29.69 kg/m??. Patient Vitals for the past 168 hrs: Weight 09/04/22 0554 68.9 kg (152 lb) 09/03/22 0600 69.9 kg (154 lb) 09/02/22 0550 70.1 kg (154 lb 8 oz) 09/01/22 0600 68.1 kg (150 lb 3.2 oz) 08/31/22 0600 67.7 kg (149 lb 4.8 oz) Admit wt: 69 kg Physical Exam: GENERAL: Awake, no acute distress, dobhoff in place w/tape HEENT: Anicteric, no conjunctival injection CV: RRR, no murmurs/rubs/gallops, 2+ radial/DP pulses PULM: Normal respiratory effort, CTA with good air entry bilaterally, coarse bibasilar breath sounds minimal ABDOMEN: Soft, non-tender, non-distended, no masses, no guarding EXTREMITIES: No lower extremity edema. No clubbing or cyanosis PSYCH/NEURO: morose affect, intact cognition, no tremor SKIN: Warm, dry, no rashes LABS: CBC: Recent Labs 09/06/22 0100 09/05/22 0106 09/04/22 0026 09/03/22 0040 09/02/22 0105 WBC 6.3 4.9 6.7 5.1 5.9 HGB 8.6* 8.7* 8.5* 8.4* 8.3* HCT 29.0* 29.0* 28.1* 27.1* 27.7* PLATELET 297 314 300 305 344 NEUTROABS 2.64 1.88 4.05 2.19 2.83 Retic count 09/02: 2.2% (high normal), Retic hgb 22.9% (low), immature Retic 45% (very high), absolute 0.08 (normal range) Chemistry: Recent Labs 09/06/220 09/05/22 0106 09/04/22 0026 09/03/22 0040 09/02/22 0105 NA 139 140 141 138 136 K 4.3 3.8 4.3 4.1 4.4 CL 104 103 104 102 100 CO2 28 28 29 29 30 BUN 21* 21* 30* 28* 30* CREATININE 0.49* 0.49* 0.53* 0.49* 0.52* GLUCOSE 95 95 131 107 114 ANIONGAP 7 9 8 7 6 Recent Labs 09/06/22 0100 09/05/22 0106 09/04/22 0026 09/03/22 0040 09/02/22 0105 CALCIUM 9.5 9.5 9.4 9.2 9.5 MAGNESIUM 0.81 0.91 0.88 0.96 0.87 PHOS 3.6 3.9 3.2 3.4 3.9 LFT's: Recent Labs 08/20/22 1400 08/15/22 0950 08/15/22 0305 BILITOT <0.2* <0.2* 0.2 BILIDIR 0.1 0.1 0.1 ALBUMIN 2.5* 2.4* 2.4* ALKPHOS 213* 102 99 ALT 20 12 13 AST 39* 21 25 Cardiac enzymes: Recent Labs 08/19/22 0120 08/14/22 2355 CK 32 -- PROBNP -- >35,000* Endocrine: Recent Labs 08/20/22 1400 08/15/22 0000 TSH 1.90 0.28 Recent Labs 08/15/22 0305 HA1C 6.2* CRP, Sed Rate Recent Labs 08/21/22 1200 CRP 19.4* SEDRATE >119* Lipids: Lab Results Component Value Date CHLPL 110 08/29/2022 HDL 34 08/29/2022 CHOLHDL 3.2 08/29/2022 TRIG 127 08/29/2022 LDLCHOL 51 08/29/2022 EKG: Lab Results Component Value Date/Time DIAGLINE 09/01/2022223 Normal sinus rhythm T wave abnormality, consider inferior ischemia T wave abnormality, consider anterolateral ischemia Prolonged QT Abnormal ECG When compared with ECG of 16-AUG-2022 03:24, Criteria for Septal infarct are no longer Present T wave inversion less evident in Inferior leads Confirmed by MD Amada, Tae ([id number]) on 09/01/2022 4:28:11 PM QTCCALC 475 09/01/2022223 Microbiology: Lab Results Component Value Date/Time URINECULTURE 1,000-9,000 cfu/ml Insignificant growth 08/15/2022 1225 Lab Results Component Value Date/Time BLOODCX No growth at 5 days. 08/19/2022 1720 BLOODCX No growth at 5 days. 08/19/2022 1330 BLOODCX No growth at 5 days. 08/15/2022 0110 BLOODCX No growth at 5 days. 08/14/2022 2355 Microbiology Results (Last 30 days) Procedure Component Value Units Date/Time Lower Respiratory Culture Bronchial Alveolar Lavage [[id number]] Collected: 08/21/221649 Lab Status: Final result Specimen: Bronchial Alveolar Lavage Updated: 08/23/22 0741 Lower Respiratory Culture Rare mixed bacterial morphotypes suggestive of normal upper respiratory wiley Gram Stain -- Few Neutrophils seen No squamous epithelial cells seen No microorganisms seen. Fungus Culture & Calc Stain Bronchial Alveolar Lavage [[id number]] (Abnormal) Collected: 08/21/221649 Lab Status: Preliminary result Specimen: Bronchial Alveolar Lavage Updated: 08/24/22 145 AFB culture Bronchial Alveolar Lavage [[id number]] Collected: 08/21/221649 Lab Status: Preliminary result Specimen: Bronchial Alveolar Lavage Updated: 08/24/222218 Acid Fast Bacilli Culture -- No Acid Fast Bacilli isolated to date If active tuberculosis is suspected, the patient should be on [employer] PRECAUTIONS. Call Infection Prevention for assistance if needed. Acid Fast Stain No Acid Fast Bacilli seen Fungus culture [[id number]] (Abnormal) Collected: 08/21/221649 Lab Status: Preliminary result Specimen: Bronchial Alveolar Lavage Updated: 08/24/22 145 Fungus Culture Rare Jacky albicans Calcofluor White Stain [[id number]] Collected: 08/21/221649 Lab Status: Final result Specimen: Bronchial Alveolar Lavage Updated: 08/21/22 2016 Calcofluor Stain Calcofluor White Preparation: Negative Lower Respiratory Culture Bronchial Alveolar Lavage [[id number]] Collected: 08/21/221644 Lab Status: Final result Specimen: Bronchial Alveolar Lavage Updated: 08/23/2241 Lower Respiratory Culture Rare mixed bacterial morphotypes suggestive of normal upper respiratory wiley Gram Stain -- Moderate Neutrophils seen No squamous epithelial cells seen No microorganisms seen. Fungus Culture & Calc Stain Bronchial Alveolar Lavage [[id number]] (Abnormal) Collected: 08/21/221644 Lab Status: Preliminary result Specimen: Bronchial Alveolar Lavage Updated: 08/24/22 145 AFB culture Bronchial Alveolar Lavage [[id number]] Collected: 04/14/23 1645 Lab Status: Preliminary result Specimen: Bronchial Alveolar Lavage Updated: 08/24/22 2221 Acid Fast Bacilli Culture -- No Acid Fast Bacilli isolated to date If active tuberculosis is suspected, the patient should be on [employer] PRECAUTIONS. Call Infection Prevention for assistance if needed. Acid Fast Stain No Acid Fast Bacilli seen Fungus culture [[id number]] (Abnormal) Collected: 08/21/22 1645 Lab Status: Preliminary result Specimen: Bronchial Alveolar Lavage Updated: 08/24/22 1453 Fungus Culture Rare Jacky albicans Calcofluor White Stain [[id number]] Collected: 08/21/22 164 Lab Status: Final result Specimen: Bronchial Alveolar Lavage Updated: 08/21/22 2017 Calcofluor Stain Calcofluor White Preparation: Negative Blood culture [[id number]] Collected: 08/19/22 1720 Lab Status: Final result Specimen: Blood Updated: 08/24/22 2301 Blood Culture No growth at 5 days. Lower Respiratory Culture Sputum Induced [[id number]] Collected: 08/19/22 1451 Lab Status: Final result Specimen: Sputum Induced Updated: 08/21/22 0948 Lower Respiratory Culture Rare mixed bacterial morphotypes suggestive of normal upper respiratory wiley Gram Stain -- Many Neutrophils seen Few squamous epithelial cells seen No microorganisms seen. Blood culture [[id number]] Collected: 08/19/22 1330 Lab Status: Final result Specimen: Blood Updated: 08/24/22 1501 Blood Culture No growth at 5 days. Legionella Urinary Antigen [[id number]] Collected: 08/18/22 1013 Lab Status: Final result Specimen: Urine Updated: 08/18/22 2252 Legionella Urinary Antigen Negative Comment: A negative Legionella Urinary Antigen by EIA suggests no recent or current infection with L. pneumophila Serogroup 1. Antigen may not be present in urine in early infection, and the level of antigen present in the urine may be below the detection limit of the test. Sensitivity: 95% Specificity 95%. Urine culture Indwelling Catheter Urine; Other; sepsis, bacteria on UA [[id number]] Collected: 08/15/22 1225 Lab Status: Final result Specimen: Indwelling Catheter Urine Updated: 08/16/22 0804 Urine Culture 1,000-9,000 cfu/ml Insignificant growth COVID-19 PCR [[id number]] Collected: 08/15/22 1150 Lab Status: Final result Specimen: Nasopharyngeal Swab Updated: 08/15/22 1501 SARS-CoV-2 RNA PCR Not Detected Comment: This result should be interpreted in combination with the clinical observations, patient history and epidemiological information. For testing of asymptomatic individuals, assay performance characteristics and clinical utility have not been evaluated. Testing for SARS-CoV-2 (Severe acute respiratory syndrome coronavirus 2, formerly known as 2019 novel coronavirus or 2019-nCoV) to aid in the diagnosis of COVID-19 is performed using the Simplexa COVID-19 Direct Assay by [employer] as authorized by the FDA issued Emergency Use Authorization (EUA). This assay is intended for In-vitro Diagnostic (IVD) use with nasopharyngeal swabs collected from individuals meeting the CDC criteria for testing. The assay is performed based on the instructions for use and additional guidance provided by the FDA. Testing is performed in the Microbiology Laboratory within the Department of Pathology and Laboratory Medicine at [facility], certified under the Clinical Laboratory Improvement Amendments of 1988 (CLIA), 42 U.S.C. section 263a, to perform high complexity tests. Assay performance has been verified according to clinical laboratory regulatory requirements. Test results are provided above. A result of Not Detected indicates that the viral RNA target is not present but does not preclude SARS-CoV-2 infection. False negative results may occur if a specimen is improperly collected, transported or handled; if amplification inhibitors are present; or if inadequate numbers of viral particles are present in the specimen. A result of Detected suggests a current or recent infection and the patient is presumed to be infected. Positive and negative predictive values for this test are highly dependent on disease prevalence. A result of Invalid indicates the inability to conclusively determine the presence or absence of SARS-CoV-2 RNA in the sample which can be due to a variety of factors. Recollection is recommended in the case of an invalid result. CDC COVID-19 criteria for testing on human specimens and clinical management guidance information are available at the CDC Coronavirus Disease 2019 (COVID-19) webpage under Information for Healthcare Professionals (https://www.cdc.gov/coronavirus/2019-ncov/hcp/index.html). 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 MRSA PCR Screen ([facility]/CGP/APD/NLH) [[id number]] Collected: 08/15/22 0050 Lab Status: Final result Specimen: Nasopharyngeal Swab Updated: 08/17/22 1419 MRSA Result Negative MRSA Interp -- Methicillin-resistant Staphylococcus aureus (MRSA) is NOT DETECTED The MRSA target DNA sequences (mec and SCC) were not detected within the acceptable ranges using the Xpert MRSA NxG on the GeneXpert Dx System ([employer]). This suggests the absence of MRSA in the patient specimen submitted for testing. This test is cleared by the U.S. Food and Drug Administration for clinical use and its performance characteristics have been verified by the [facility] at [facility]. This result does not rule out the presence of any other organisms. Rare false negative results may occur if MRSA is present at low concentrations with much higher concentrations of other organisms including MRSE or S. aureus with an empty SCC cassette. Comment: [VERIFIED DATE]08.17.22 Verified By:Shannon Smiley (Electronic Signature) Blood culture [[id number]] Collected: 08/14/22 2867 Lab Status: Final result Specimen: Blood Updated: 08/20/22700 Blood Culture No growth at 5 days. Imaging/Diagnostics: Results for orders placed or performed during the hospital encounter of 08/14/22 XR Chest One View (Exam End: 08/15/2022 1:00 AM) Impression FINDINGS/IMPRESSION: * Moderate pulmonary edema. * No confluent airspace opacity otherwise seen. * Cannot exclude small pleural effusions. * Cardiomediastinal contours appear within normal limits. * Endotracheal tube tip projects 3.8 cm above the consuelo. * RIGHT neck central catheter, distal catheter coiled over the region of the RIGHT ventricle and pulmonary trunk. Thank you for letting us participate in the care of this patient. If you are a health care provider and have any questions regarding this report, please contact the number below. For patients who have questions please contact the health acute care physician that requested your imaging first. Abdomen 1 view (Generic) (Exam End: 08/15/2022 8:33 AM) Impression The enteric tube sidehole is not definitively subdiaphragmatic. Recommend advancement. Preliminary report signed by: Carlos Wolff at 08/15/2022 9:00 AM I have personally reviewed the image(s) and the resident's interpretation and agree with the findings, Liliane Adams MD at 08/15/2022 9:05 AM Thank you for letting us participate in the care of this patient. If you are a health care provider and have any questions regarding this report, please contact the number below. For patients who have questions please contact the health acute care physician that requested your imaging first. Electronically signed by: Liliane Adams MD, [facility] ([phone]), at 08/15/2022 9:05 AM XR Chest One View (Exam End: 08/15/2022 1:14 AM) Impression FINDINGS/IMPRESSION: * RIGHT neck central catheter redemonstrated terminating over the region of the pulmonary trunk, now uncoiled distally although the tip is looped. * Moderate pulmonary edema redemonstrated. * ET tube projects similar. Thank you for letting us participate in the care of this patient. If you are a health care provider and have any questions regarding this report, please contact the number below. For patients who have questions please contact the health acute care physician that requested your imaging first. Abdomen 1 view (Generic) (Exam End: 08/15/2022 6:38 AM) Impression Nonspecific/nondiagnostic appearance of the abdomen, with large stool burden in the RIGHT hemiabdomen and pelvis. Thank you for letting us participate in the care of this patient. If you are a health care provider and have any questions regarding this report, please contact the number below. For patients who have questions please contact the health acute care physician that requested your imaging first. Chest One View (Exam End: 08/16/2022 10:31 AM) Impression PA catheter has a persistent loop near the tip, similar to the prior comparison study. Improved pulmonary edema. Thank you for letting us participate in the care of this patient. If you are a health care provider and have any questions regarding this report, please contact the number below. For patients who have questions please contact the health acute care physician that requested your imaging first. Electronically signed by: Alfonso Adams MD, [facility] ([phone]), at 08/16/2022 10:[address] Head wo Contrast (Generic) (Exam End: 08/16/2022 10:44 PM) Impression No acute intracranial abnormality and no change from prior Thank you for letting us participate in the care of this patient. If you are a health care provider and have any questions regarding this report, please contact the number below. For patients who have questions please contact the health acute care physician that requested your imaging first. Electronically signed by: Moustapha Correa MD, [facility] ([phone]), at 08/16/2022 11:19 PM XR Abdomen 1 view (Generic) (Exam End: 08/17/2022 12:09 PM) Impression Status post Dobbhoff tube placement with catheter tip terminating at the approximate position of greater curvature. I have personally reviewed the image(s) and the resident's interpretation and agree with the findings, Jenn Pina MD at 08/17/2022 2:31 PM Thank you for letting us participate in the care of this patient. If you are a health care provider and have any questions regarding this report, please contact the number below. For patients who have questions please contact the health acute care physician that requested your imaging first. Head wo Contrast (Generic) (Exam End: 08/18/2022 3:14 PM) Impression No acute intracranial process. Thank you for letting us participate in the care of this patient. If you are a health care provider and have any questions regarding this report, please contact the number below. For patients who have questions please contact the health acute care physician that requested your imaging first. Electronically signed by: Antonio Jordan MD, [facility] ([phone]), at 08/18/2022 3:18 PM XR Chest One View (Exam End: 08/19/2022 12:30 PM) Impression 1. Increased bibasilar airspace opacities compared to radiograph 08/16/2022, concerning for an infectious/inflammatory process. A component of edema not excluded. 2. Overall decreased pulmonary edema. I have personally reviewed the image(s) and the resident's interpretation and agree with the findings, Alan De Guzman MD at 08/19/2022 3:14 PM Thank you for letting us participate in the care of this patient. If you are a health care provider and have any questions regarding this report, please contact the number below. For patients who have questions please contact the health acute care physician that requested your imaging first. Electronically signed by: Alan De Guzman MD, [facility] ([phone]), at 08/19/2022 3:14 PM MRI Brain wo Contrast (Exam End: 08/19/2022 10:15 PM) Impression No acute infarction, mass or mass effect. Thank you for letting us participate in the care of this patient. If you are a health care provider and have any questions regarding this report, please contact the number below. For patients who have questions please contact the health acute care physician that requested your imaging first. Chest for Verifying Vascular Access PICC Placement At Bedside (Exam End: 08/19/2022 4:36 PM) Impression PICC tip is in the superior vena cava above the right atrium. Thank you for letting us participate in the care of this patient. If you are a health care provider and have any questions regarding this report, please contact the number below. For patients who have questions please contact the health acute care physician that requested your imaging first. Electronically signed by: Alan De Guzman MD, [facility] ([phone]), at 08/19/2022 4:[address] Hip w Contrast Left (Exam End: 08/20/2022 11:04 PM) Impression 1. Uncomplicated left femoral neck ORIF with unchanged postoperative alignment. 2. Moderate skin thickening and subcutaneous stranding about the lateral left hip with lateral left thigh intramuscular edema and fascial thickening. These findings are nonspecific and may be seen in the routine postoperative setting. Underlying soft tissue infection with infectious or inflammatory myositis may also have this appearance. Correlation with physical examination, clinical symptoms, and laboratory findings is recommended. 3. 2.3 x 1.6 x 1.8 cm focus of more coalescent fluid attenuation centered in the subcutaneous fat of the posterolateral thigh roughly at the level of the proximal femoral fixation screw heads. There is no rim-enhancing to suggest a mature, organized abscess at this time. However, this finding could represent phlegmon in appropriate clinical context, or it could represent a postsurgical collection, the contents of which may be sterile or infected. 4. There is a rectal tube in place. However, there remains a large stool ball in the rectum with free fluid versus coalescent edema on both the anterior and posterior margins of the distended rectum. In appropriate clinical context, these findings could represent proctocolitis or stercoral colitis. I have personally reviewed the image(s) and the resident's interpretation and agree with the findings, Aicha Chowdhury MD at 08/21/2022 9:34 AM Thank you for letting us participate in the care of this patient. If you are a health care provider and have any questions regarding this report, please contact the number below. For patients who have questions please contact the health acute care physician that requested your imaging first. Electronically signed by: Aicha Chowdhury MD, [facility] ([phone]), at 08/21/2022 9:[address] Chest w Contrast (Exam End: 08/20/2022 11:04 PM) Impression 1. Multifocal lower lobe predominant consolidative opacities with additional upper lobe opacities consistent with multifocal pneumonia. Compared to the prior CT of 08/12/2022 the number and size of the opacities has decreased. Recommend follow-up imaging in 3-6 months to document complete resolution. 2. New small, sub-1 cm early cavitation of multiple opacities predominantly within the posterior left upper lobe and left lower lobe. 3. New curvilinear splenic lesions could represent infarct versus late arterial phase splenic arterial opacification. Thank you for letting us participate in the care of this patient. If you are a health care provider and have any questions regarding this report, please contact the number below. For patients who have questions please contact the health acute care physician that requested your imaging first. Hip 2-3 Views Left (Exam End: 08/22/2022 12:19 AM) Impression No radiographic evidence of infection. Thank you for letting us participate in the care of this patient. If you are a health care provider and have any questions regarding this report, please contact the number below. For patients who have questions please contact the health acute care physician that requested your imaging first. Electronically signed by: Viktor Cervantes MD, [facility] ([phone]), at 08/22/2022 12:43 PM XR Pelvis (Generic) (Exam End: 08/22/2022 12:19 AM) Impression No radiographic evidence of infection status post left hip ORIF. Thank you for letting us participate in the care of this patient. If you are a health care provider and have any questions regarding this report, please contact the number below. For patients who have questions please contact the health acute care physician that requested your imaging first. Electronically signed by: Richard Billings MD, [facility] ([phone]), at 08/22/2022 10:[address] Angiogram Coronary Arteries (Exam End: 08/27/2022 8:58 AM) Impression Coronary calcium score of 0, consistent with no detectable calcified atherosclerotic plaque burden. No evidence of stenosing soft plaque on the coronary CT arteriogram. CAD RADS 0 Ongoing bilateral pulmonary infectious/inflammatory changes with persistent consolidative opacity especially in the left lower lobe. This could represent a multifocal pneumonia. Recommend follow-up CT in 3 months to assess for resolution. Thank you for letting us participate in the care of this patient. If you are a health care provider and have any questions regarding this report, please contact the number below. For patients who have questions please contact the health acute care physician that requested your imaging first. Electronically signed by: Arlette Mays MD, [facility] ([phone]), at 08/27/2022 11:[address] Chest wo Contrast (Generic) (Exam End: 08/27/2022 8:58 AM) Impression Stable findings of multifocal pneumonia. No interval abnormality. Thank you for letting us participate in the care of this patient. If you are a health care provider and have any questions regarding this report, please contact the number below. For patients who have questions please contact the health acute care physician that requested your imaging first. Electronically signed by: MINH QUIROGA MD, [facility] ([phone]), at 08/27/2022 10:48 AM XR Fluoro Barium Swallow (Modified/Video Swallow Pharynx) (Exam End: 08/31/2022 11:23 AM) Impression Abnormal modified barium swallow as above. Please see speech pathology report for further discussion. Thank you for letting us participate in the care of this patient. If you are a health care provider and have any questions regarding this report, please contact the number below. For patients who have questions please contact the health acute care physician that requested your imaging first. Electronically signed by: Aron Billings MD, [facility] ([phone]), at 08/31/2022 12:02 PM XR Fluoro Barium Swallow (Modified/Video Swallow Pharynx) (Exam End: 09/04/2022 10:25 AM) Impression 1. Penetration of the airway and aspiration with thin liquids, especially with rapid sips of thin barium. 2. Flash penetration of nectar thick liquids from a straw. 3. Reflux of residual barium within the esophagus on multiple swallows. I have personally reviewed the image(s) and the resident's interpretation and agree with the findings, Alfonso Adams MD at 09/04/2022 10:57 AM Thank you for letting us participate in the care of this patient. If you are a health care provider and have any questions regarding this report, please contact the number below. For patients who have questions please contact the health acute care physician that requested your imaging first. Electronically signed by: Alfonso Adams MD, [facility] ([phone]), at 09/04/2022 10:57 AM XR Abdomen 1 view (Generic) (Exam End: 09/04/2022 9:47 PM) Impression 1. On the chest radiograph at 2136 hours the enteric tube projects over the mid esophagus. On the abdominal radiograph at 2139 hours the enteric tube now projects below the diaphragm with tip partially visualized projecting over the left mid abdomen. 2. Lower lobe predominant patchy and reticular airspace opacities consistent with sequela of multifocal pneumonia. The appearance is improved compared to prior radiograph. Thank you for letting us participate in the care of this patient. If you are a health care provider and have any questions regarding this report, please contact the number below. For patients who have questions please contact the health acute care physician that requested your imaging first. Chest One View (Exam End: 09/04/2022 9:47 PM) Impression 1. On the chest radiograph at 2136 hours the enteric tube projects over the mid esophagus. On the abdominal radiograph at 2139 hours the enteric tube now projects below the diaphragm with tip partially visualized projecting over the left mid abdomen. 2. Lower lobe predominant patchy and reticular airspace opacities consistent with sequela of multifocal pneumonia. The appearance is improved compared to prior radiograph. Thank you for letting us participate in the care of this patient. If you are a health care provider and have any questions regarding this report, please contact the number below. For patients who have questions please contact the health acute care physician that requested your imaging first. Chest One View (Exam End: 09/05/2022 9:24 AM) Impression 1. Reposition enteric tube now extending below the diaphragm and included [id number]. 2. Similar appearance of elevated right hemidiaphragm and linear/patchy bibasilar opacities which may represent atelectasis or possibly aspiration. Thank you for letting us participate in the care of this patient. If you are a health care provider and have any questions regarding this report, please contact the number below. For patients who have questions please contact the health acute care physician that requested your imaging first. Electronically signed by: AUDI PERDOMO MD, [facility] ([phone]), at 09/05/2022 3:43 PM Medications: Scheduled: ??? insulin glargine (Lantus;Semglee) (100 unit/mL) subcutaneous injection 14 Units Subcutaneous Daily ??? insulin lispro 1-6 Units Subcutaneous Q4H LAZARUS ??? metoprolol tartrate 12.5 mg Oral 2 times per day ??? buPROPion 100 mg Oral Daily ??? valproic acid 300 mg Oral Q6H ??? melatonin 6 mg Oral Nightly ??? miconazole nitrate Topical (Top) BID ??? sacubitriL-valsartan 1 tablet Oral BID ??? empagliflozin 10 mg Oral Daily ??? QUEtiapine 100 mg Oral Nightly ??? lidocaine 3 patch Transdermal Q24H ??? ergocalciferoL (vitamin D2) 50,000 Units Per NG tube Weekly ??? enoxaparin 40 mg Subcutaneous Daily ??? atorvastatin 80 mg Per NG tube QPM ??? folic acid 1,000 mcg Per NG tube Daily ??? ferrous sulfate 300 mg Per NG tube Every Other Day ??? chlorhexidine 15 mL Oral BID ??? pantoprazole 40 mg Intravenous BID ??? sodium chloride 0.9 % (flush) 5 mL Intravenous BID ??? thiamine 100 mg Intravenous Daily Continuous: ??? tube feeding diet 1,320 mL (09/06/22 0543) PRN: diclofenac, barium sulfate, acetaminophen, ondansetron, iohexoL, polyethylene glycoL, senna, bisacodyL, potassium chloride in water OR potassium chloride in water OR potassium chloride in water, sodium chloride 0.9 % (flush), lidocaine, nitroGLYcerin, glucose 40% oral geL OR dextrose 10% OR glucagon ASSESSMENT and PLAN: Ishan Irving is a 62 y.o. 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.5 years) c/b chronic pancreatitis, iron deficiency anemia,??GE RD??c/b??esophagitis &??Farrell's esophagus, who was admitted to [facility] on 08/14/2022 (now on Hospital Day #23) for mixed shock and stress cardiomyopathy who transferred to Hospital Medicine due to persistent dysphagia. 09/06/22 Ishan is doing well today although is looking forward to getting a different room as she finds itdifficult to sleep in her current room. Her transient episode was word salad overnight is interesting but unlikely to represent an ischemic event. It seems likely that she had a transient moment of co nfusion/delirium in the setting of her room change that resolved quickly. She is saturating well on2L today; will likely be able to down-titrate oxygen quickly as she improves from her pneumonitis. Will ask for her NG to be bridled to avoid having to replace her NG prior to a PEG placement given her episode of aspiration with placement on Wednesday evening. Ishan's asked about the possibility that she has rehabbed in placed enough to potentially go home; encouraged them that she should continue to work with PT/OT/GAS STATION SUPERVISOR/nursing but that the most recent assessments still recommended acute rehab. Today's plan: - Tube feeds at goal - Diabetes Team aware and titrating insulin accordingly - bridle NG tube to ensure do not need to replace NG before PEG # Bipolar Disorder - Continue Seroquel 100mg nightly - C/w valproate 300mg q6h > level 25mg/L 08/29 - GAS STATION SUPERVISOR following, NPO at present - Psychiatry Consult, appreciate recs, recommended starting wellbutrin - Started Wellbutrin 100mg IR as other formulations cannot be crushed for NG ?? # Acute hypoxic respiratory failure, resolved # Bilateral airspace opacities/multifocal pneumonia, resolved -??Respiratory support with LFNC PRN - Antibiotics: zosyn for pneumonia, stopped per ID - Fungitell and Fungal Cx positive, no change in management at this time per ID - CT Chest showed persistent pneumonia; ID followed, patient completed course of antibioitics ?? # Distributive Shock, resolved # NSTEMI Type I vs Type II, resolved # HFrEF (EF 25%) #Stress Cardiomyopathy - Will not perform LHC given results of CTA coronary arteries. - ASA 81mg - Entresto 24-26 1 tab BID - Metoprolol 25mg daily, starting 08/30 as tartrate for Dobhoff - Spironolactone 12.5mg QD (held starting 08/30 in setting of NPO status) - Start empagliflozin 10mg as part of GDT - Mg >1, K >4 ?? GI: # GERD c/b Farrell's esophagus & esophagitis # Constipation- resolved # Rectal wall edema 2/2 stool ball - Has Miralax, senna, dulcolax PRN ordered - Continue home pantoprazole 40 BID ?? Endocrine: # Insulin-dependent diabetes -??Diabetes Management consulted, appreciate recs - Glargine 10U qAM -??Humalog 75/25 30 units before tube feeds. - Moderate SSI ?? Hematology/oncology: # Mixed JERRICA and ACD - Oral iron supplementation started 08/21 > s/p 1 dose of Venofer - Ferritin, Iron, TIBC resulted; mixed picture - Transfuse for Hb <8 - S/p 1u pRBC 08/22 ?? Infectious disease:?? # Septic shock # Bilateral airspace opacities/multifocal pneumonia # L Hip Fluid Collection # Subcentimeter left posterior upper lobe cavitary lesions - Infectious work-up initially did not yield any clear causative organisms - S/p BAL 08/21 without any growth to date. - IR, orthopedic surgery consulted for evaluation of L hip fluid collection. No intervention/drainable target. - Stopped zosyn as per ID (08/14- 08/23) - Fungal testing positive no change in management at this time per ID #Housekeeping: DVT PPx: LMWH SCD GI PPx: Diet: NPO diet (Give Meds) Lines: PICC Line - Double Lumen 08/19/22 1655 basilic vein (medial side of arm), right 5 Fr (Active) Number of days: 17 D/c planning: Acute rehab Code status: Attempt Cardiopulmonary Resuscitation - Inpatient Jigar Streeter MD Internal Medicine PGY2 Medicine Team: Jose Juan, Pager #[phone] Date: 09/06/2022 Associated attestation - Richard Pascal MD - 09/06/2022 12:50 PM EDT Attending Attestation and Certification Please see Jigar Streeter MD's note for details of the patient history of presentation and data.I have discussed, reviewed and agree with the documented History, Physical findings, Assessment andPlan of care. I have examined the patient myself and personally reviewed all studies. In addition, I certify thatI am a [facility] credentialed attending provider with admitting privileges and that the patient meets or has met medical necessity to require an inpatient IPI level of care meeting a minimum of two midnights or is on the [facility] inpatient only procedure list (status C) due to: monitoring of fluid status given an inability to regulate fluid balance and the need for administration or restriction of fluids and acute respiratory compromise and/or hypoxia requiring assessment every 4 hours and the ability to respond immediately to the patient's need Wean oxygen as tolerated. CXR showed right lower lobe opacity, POCUS exam on 09/05 was negative for pleural effusion but did show ultrasonographic consolidation, which in the clinical context is likely atelectasis. NG tube remains in place, tube feeds increasing to goal. Nasal bridal not done yesterd ay, ensure this is done so enteric access remains intact. Pending PEG tube placement early next week. We suspect ongoing swallowing difficulty is related moreso to chronic GERD/Barretts rather than any Parkinsonian muscular dysfunction, given ongoing improvement in this per outpatient neurology notes. As discussed with GI last week, EGD is not indicated at this time as she has had one done in therecent past. She will need a repeat TTE at some point to assess for resolution/improvement of presumed stress induced cardiomyopathy. * Richard Pascal MD - 09/05/2022 9:24 PM EDT Bedside Ultrasound During Visit: Point of Care Limited Thoracic Ultrasound Indication: Shortness of breath Procedure Detail: Using a Transducers: Curvilinear transducer, the bilateral hemithoraces were evaluated independently at three positions: R lateral- posterior. There was Absence of pleural effusion right hemithorax. Other findings or limitations: Consolidation, likely atelectasis, in the RLL. Impression: Point of care limited thoracic ultrasound without evidence of pleural effusion. This study was performed by an ultrasound credentialed hospital medicine physician. These images were archived digitally in [employer] and I independently interpreted the images at the bedside. * Simba Saha MD - 09/05/2022 11:06 AM EDT General Surgery Consultation Note Date of Consultation: 09/05/2022 Consult Service: General Surgery History of Present Illness: Ishan Irving is a 62 y.o. 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.5 years) c/b chronic pancreatitis, iron deficiency anemia,??GE RD??c/b??esophagitis &??Farrell's esophagus, who was admitted to [facility] on 08/14/2022 (now on Hospital Day #21), and transferred to Hospital Medicine team from Cardiology on 08/30 for mixed shock withconcern for stress cardiomyopathy (Takotsubo Cardiomyopathy). Due to her history of GERD, and intubation during this hospital stay, she consequently suffered dysphagia, failing a modified barium swallow. Prior to the MBS, she had a Dobbhoff tube in place for enteral access. Enteral access is urgent within 24 hours for this patient because she experienced catatonic bipolar episodes during this hospitalization which only bupropion were able to alleviate, withno IV alternative. The patient reports that her last off tube was very uncomfortable and that she does not wish to repeat the experience. However she is amenable to PEG. She has a number of documented scopes for GERD but no documented surgeries. She is not on anticoagulation or steroids. 24 hr events. -And nonweighted Dobbhoff tube was placed overnight. -Otherwise denies any acute events. Physical Exam: Last Set of Vitals and Range over past 24 hours: Last value Range last 24 hrs Temperature Temp: 36.6 ??C (97.9 ??F) Temp: [36.2 ??C (97.2 ??F)-36.8 ??C (98.2 ??F)] Heart Rate Heart Rate: 69 Heart Rate: [62-91] Blood Pressure BP: 116/61 BP: (95-116)/(50-67) Respiratory Rate Resp: 21 Resp: [17-21] SpO2 SpO2: 94 % SpO2: [84 %-98 %] BMI: Weight: 68.9 kg (152 lb) (09/04/22 0554) BMI (Calculated): 31.77 BMI Classification: Obese Physical Exam General: NAD, resting comfortably HEENT: NCAT CVS: RR Pulm: NWOB Abd: Non-distended, soft, nontender. Ext: WWP Neuro: Grossly intact to conversation with slowed affect Laboratory (Last 24 Hours): Recent Labs 09/05/22 0106 WBC 4.9 HGB 8.7* HCT 29.0* PLATELET 314 Lab Results Component Value Date INR 2.0 08/15/2022 Radiology: N/A Assessment: Ishan Irving is a 62 y.o. Female in need of durable enteral access as well as urgent enteral access for PO medications due to dysphagia. She was amenable to an NG tube to bridge her to a morepermanent solution next week as it appears her dysphagia will be chronic. NAEON. 10F soft bore feeding tube placed overnight , cleared radiographically and okay to use for medications. Recommendations: - please bridle NGT. - will consider for PEG next week. Consult service will continue to follow patient. Minh Cantu MD 09/05/2022 I have independently reviewed the relevant laboratory and radiographic studies. I have edited the above note and agree with the details as written. My physical examination confirms the resident's findings. The assessment and plan were formulated in discussion with me at the time of the visit and I agree with them as documented. Simba Saha MD * Irwin Jones MD - 09/05/2022 7:37 AM EDT Images from the original note were not included. Inpatient Hospital Medicine Progress Note 09/05/2022 Patient Name: ISHAN IRVING Date of : 1960 Age: 62 y.o. Hospital Admit Date: 08/14/2022 Hospital Day: 22 Inpatient Attending: Richard Pascal MD PCP: Chris Stanley APRN ([phone]) No chief complaint on file. ID: Ishan Irving is a 62 y.o. 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.5 years) c/b chronic pancreatitis, iron deficiency anemia, ??GERD??c/b??esophagitis &??Farrell's esophagus, who was admitted to [facility] on 08/14/2022 (now on Hospital Day #22), and transferred to Hospital Medicine team from Cardiology on 08/30 for mixed shock with concern for stress cardiomyopathy (Takotsubo Cardiomyopathy). 24 HOUR EVENTS & SUBJECTIVE: Yesterday: - MBS, improved compared to prior but PO intake ultimately deemed not safe after bedside trial - Patient consented to percutaneous feed tube, Surgery and IR unable to place until Wednesday - Dobhoff ordered, unable to be placed until Wednesday - NG tube ordered, patient destting and coughing though imaging confirmed placement, transferred toISCU for closer obs Overnight: - NAEO - Mag repleted at shift change per goal >1 Today AM: pt reports the following: Patient reports she feels tired today from poor sleep overnight but otherwise well. Mood remains markedly improved. No new fevers, chills, myalgias, arthralgias. No pain at present. No other concernsthis AM. OBJECTIVE: Vitals: Last value Range last 24 hrs Temperature Temp: 36.6 ??C (97.9 ??F) Temp: [36.2 ??C (97.2 ??F)-36.8 ??C (98.2 ??F)] Heart Rate Heart Rate: 64 Heart Rate: [62-91] Blood Pressure BP: 109/61 BP: (87-109)/(46-67) Art Line BP BP (Arterial Line): 111/70 BP (Arterial Line): -- MAP (NBP): [59 mmHg-78 mmHg] Respiratory Rate Resp: 20 Resp: [17-20] SpO2 SpO2: 92 % SpO2: [84 %-98 %] Oxygen Delivery Oxygen Therapy O2 Device: Nasal cannula O2 Flow Rate (L/min): 2 L/min FiO2 (%): 21 % Reason for Oxygen: New documented hypoxia Intake/Output Summary (Last 24 hours) at 09/05/2022 0737 Last data filed at 09/05/2022 0604 Gross per 24 hour Intake 733 ml Output 200 ml Net 533 ml I/O last 3 completed shifts: In: 909 [NG/GT:779] Out: 550 [Urine:550] Last Bowel Movement: 09/04/22 Body mass index is 29.69 kg/m??. Patient Vitals for the past 168 hrs: Weight 09/04/22 0554 68.9 kg (152 lb) 09/03/22 0600 69.9 kg (154 lb) 09/02/22 0550 70.1 kg (154 lb 8 oz) 09/01/22 0600 68.1 kg (150 lb 3.2 oz) 08/31/22 0600 67.7 kg (149 lb 4.8 oz) 08/30/22 0600 67.8 kg (149 lb 6.4 oz) Admit wt: 69 kg Physical Exam: GENERAL: Awake, moderately somnolent, no acute distress, dobhoff in place w/tape HEENT: Anicteric, no conjunctival injection CV: RRR, no murmurs/rubs/gallops, 2+ radial/DP pulses PULM: Normal respiratory effort, CTA with good air entry bilaterally, coarse bibasilar breath sounds minimal ABDOMEN: Soft, non-tender, non-distended, no masses, no guarding EXTREMITIES: No lower extremity edema. No clubbing or cyanosis PSYCH/NEURO: morose affect, intact cognition, no tremor SKIN: Warm, dry, no rashes POCUS performed with no clear signs of pleural effusion LABS: CBC: Recent Labs 09/05/22 0106 09/04/22 0026 09/03/22 0040 09/02/22 0105 09/01/22 0210 WBC 4.9 6.7 5.1 5.9 5.5 HGB 8.7* 8.5* 8.4* 8.3* 8.7* HCT 29.0* 28.1* 27.1* 27.7* 28.5* PLATELET 314 300 305 344 361* NEUTROABS 1.88 4.05 2.19 2.83 2.52 Retic count 09/02: 2.2% (high normal), Retic hgb 22.9% (low), immature Retic 45% (very high), absolute 0.08 (normal range) Chemistry: Recent Labs 09/05/22 0106 09/04/22 0026 09/03/22 0040 09/02/22 0105 09/01/22 0210 NA 140 141 138 136 140 K 3.8 4.3 4.1 4.4 4.6 CL 103 104 102 100 104 CO2 28 29 29 30 29 BUN 21* 30* 28* 30* 29* CREATININE 0.49* 0.53* 0.49* 0.52* 0.51* GLUCOSE 95 131 107 114 86 ANIONGAP 9 8 7 6 7 Recent Labs 09/05/22 0106 09/04/22 0026 09/03/22 0040 09/02/22 0105 09/01/22 0210 CALCIUM 9.5 9.4 9.2 9.5 9.4 MAGNESIUM 0.91 0.88 0.96 0.87 0.94 PHOS 3.9 3.2 3.4 3.9 4.3 LFT's: Recent Labs 08/20/22 1400 08/15/22 0950 08/15/22 0305 BILITOT <0.2* <0.2* 0.2 BILIDIR 0.1 0.1 0.1 ALBUMIN 2.5* 2.4* 2.4* ALKPHOS 213* 102 99 ALT 20 12 13 AST 39* 21 25 Coags: No results for input(s): PT, INR, PTT, FIBRINOGEN, DDIMER in the last 168 hours. Invalid input(s): THROMBIN TIME No results for input(s): INR in the last 168 hours. Cardiac enzymes: Recent Labs 08/19/22 0120 08/14/22 2355 CK 32 -- PROBNP -- >35,000* Endocrine: Recent Labs 08/20/22 1400 08/15/22 0000 TSH 1.90 0.28 Recent Labs 08/15/22 0305 HA1C 6.2* CRP, Sed Rate Recent Labs 08/21/22 1200 CRP 19.4* SEDRATE >119* Lipids: Lab Results Component Value Date CHLPL 110 08/29/2022 HDL 34 08/29/2022 CHOLHDL 3.2 08/29/2022 TRIG 127 08/29/2022 LDLCHOL 51 08/29/2022 Heme: No results for input(s): LDH, HAPTOGLOBIN, URICACID in the last 168 hours. ABG (Arterial Blood Gas): No results found for: PHART, PO2ART, AGH2MVG, IIZ1IIZ VBG (Venous Blood Gas): No results for input(s): PHVEN, NOR6XPK, PO2VEN, OPF8FQJ, BEVEN, PAQ0TAA in the last 72 hours. EKG: Lab Results Component Value Date/Time DIAGLINE 09/01/2022 0224 Normal sinus rhythm T wave abnormality, consider inferior ischemia T wave abnormality, consider anterolateral ischemia Prolonged QT Abnormal ECG When compared with ECG of 16-AUG-2022 03:24, Criteria for Septal infarct are no longer Present T wave inversion less evident in Inferior leads Confirmed by MD Amada, Tae ([id number]) on 09/01/2022 4:28:11 PM QTCCALC 475 09/01/2022 0224 Vascular: No results found for: VBTEXTRPT Microbiology: Date Type Result Lab Results Component Value Date/Time URINECULTURE 1,000-9,000 cfu/ml Insignificant growth 08/15/2022 1225 Lab Results Component Value Date/Time GRAMSTAIN 08/21/2022 1650 Few Neutrophils seen No squamous epithelial cells seen No microorganisms seen. GRAMSTAIN 08/21/2022 1645 Moderate Neutrophils seen No squamous epithelial cells seen No microorganisms seen. GRAMSTAIN 08/19/2022 1451 Many Neutrophils seen Few squamous epithelial cells seen No microorganisms seen. LOWERRESPCX 08/21/2022 1650 Rare mixed bacterial morphotypes suggestive of normal upper respiratory wiley Lab Results Component Value Date/Time BLOODCX No growth at 5 days. 08/19/2022 1720 BLOODCX No growth at 5 days. 08/19/2022 1330 BLOODCX No growth at 5 days. 08/15/2022 0110 BLOODCX No growth at 5 days. 08/14/2022 2355 Microbiology Results (Last 30 days) Procedure Component Value Units Date/Time Lower Respiratory Culture Bronchial Alveolar Lavage [[id number]] Collected: 08/21/221649 Lab Status: Final result Specimen: Bronchial Alveolar Lavage Updated: 08/23/22 0741 Lower Respiratory Culture Rare mixed bacterial morphotypes suggestive of normal upper respiratory wiley Gram Stain -- Few Neutrophils seen No squamous epithelial cells seen No microorganisms seen. Fungus Culture & Calc Stain Bronchial Alveolar Lavage [[id number]] (Abnormal) Collected: 08/21/221649 Lab Status: Preliminary result Specimen: Bronchial Alveolar Lavage Updated: 08/24/22 145 AFB culture Bronchial Alveolar Lavage [[id number]] Collected: 08/21/221649 Lab Status: Preliminary result Specimen: Bronchial Alveolar Lavage Updated: 08/24/22 221 Acid Fast Bacilli Culture -- No Acid Fast Bacilli isolated to date If active tuberculosis is suspected, the patient should be on [employer] PRECA[employer]IONS. Call Infection Prevention for assistance if needed. Acid Fast Stain No Acid Fast Bacilli seen Fungus culture [[id number]] (Abnormal) Collected: 08/21/221649 Lab Status: Preliminary result Specimen: Bronchial Alveolar Lavage Updated: 08/24/22 145 Fungus Culture Rare Jacky albicans Calcofluor White Stain [[id number]] Collected: 08/21/221649 Lab Status: Final result Specimen: Bronchial Alveolar Lavage Updated: 08/21/222015 Calcofluor Stain Calcofluor White Preparation: Negative Lower Respiratory Culture Bronchial Alveolar Lavage [[id number]] Collected: 08/21/221644 Lab Status: Final result Specimen: Bronchial Alveolar Lavage Updated: 08/23/2241 Lower Respiratory Culture Rare mixed bacterial morphotypes suggestive of normal upper respiratory wiley Gram Stain -- Moderate Neutrophils seen No squamous epithelial cells seen No microorganisms seen. Fungus Culture & Calc Stain Bronchial Alveolar Lavage [[id number]] (Abnormal) Collected: 08/21/221644 Lab Status: Preliminary result Specimen: Bronchial Alveolar Lavage Updated: 08/24/22 145 AFB culture Bronchial Alveolar Lavage [[id number]] Collected: 08/21/221644 Lab Status: Preliminary result Specimen: Bronchial Alveolar Lavage Updated: 08/24/22 2221 Acid Fast Bacilli Culture -- No Acid Fast Bacilli isolated to date If active tuberculosis is suspected, the patient should be on [employer]CA[employer]IONS. Call Infection Prevention for assistance if needed. Acid Fast Stain No Acid Fast Bacilli seen Fungus culture [[id number]] (Abnormal) Collected: 08/21/22 1645 Lab Status: Preliminary result Specimen: Bronchial Alveolar Lavage Updated: 08/24/22 1453 Fungus Culture Rare Jacky albicans Calcofluor White Stain [[id number]] Collected: 08/21/22 164 Lab Status: Final result Specimen: Bronchial Alveolar Lavage Updated: 08/21/22 2017 Calcofluor Stain Calcofluor White Preparation: Negative Blood culture [[id number]] Collected: 08/19/22 1720 Lab Status: Final result Specimen: Blood Updated: 08/24/22 2301 Blood Culture No growth at 5 days. Lower Respiratory Culture Sputum Induced [[id number]] Collected: 08/19/22 1451 Lab Status: Final result Specimen: Sputum Induced Updated: 08/21/22 0948 Lower Respiratory Culture Rare mixed bacterial morphotypes suggestive of normal upper respiratory wiley Gram Stain -- Many Neutrophils seen Few squamous epithelial cells seen No microorganisms seen. Blood culture [[id number]] Collected: 08/19/22 1330 Lab Status: Final result Specimen: Blood Updated: 08/24/22 1501 Blood Culture No growth at 5 days. Legionella Urinary Antigen [[id number]] Collected: 08/18/22 1013 Lab Status: Final result Specimen: Urine Updated: 08/18/22 2252 Legionella Urinary Antigen Negative Comment: A negative Legionella Urinary Antigen by EIA suggests no recent or current infection with L. pneumophila Serogroup 1. Antigen may not be present in urine in early infection, and the level of antigen present in the urine may be below the detection limit of the test. Sensitivity: 95% Specificity 95%. Urine culture Indwelling Catheter Urine; Other; sepsis, bacteria on UA [[id number]] Collected: 08/15/22 1225 Lab Status: Final result Specimen: Indwelling Catheter Urine Updated: 08/16/22 0804 Urine Culture 1,000-9,000 cfu/ml Insignificant growth COVID-19 PCR [[id number]] Collected: 08/15/22 1150 Lab Status: Final result Specimen: Nasopharyngeal Swab Updated: 08/15/22 1501 SARS-CoV-2 RNA PCR Not Detected Comment: This result should be interpreted in combination with the clinical observations, patient history and epidemiological information. For testing of asymptomatic individuals, assay performance characteristics and clinical utility have not been evaluated. Testing for SARS-CoV-2 (Severe acute respiratory syndrome coronavirus 2, formerly known as 2019 novel coronavirus or 2019-nCoV) to aid in the diagnosis of COVID-19 is performed using the Simplexa COVID-19 Direct Assay by [employer] as authorized by the FDA issued Emergency Use Authorization (EUA). This assay is intended for In-vitro Diagnostic (IVD) use with nasopharyngeal swabs collected from individuals meeting the CDC criteria for testing. The assay is performed based on the instructions for use and additional guidance provided by the FDA. Testing is performed in the Microbiology Laboratory within the Department of Pathology and Laboratory Medicine at [facility], certified under the Clinical Laboratory Improvement Amendments of 1988 (CLIA), 42 U.S.C. section 263a, to perform high complexity tests. Assay performance has been verified according to clinical laboratory regulatory requirements. Test results are provided above. A result of Not Detected indicates that the viral RNA target is not present but does not preclude SARS-CoV-2 infection. False negative results may occur if a specimen is improperly collected, transported or handled; if amplification inhibitors are present; or if inadequate numbers of viral particles are present in the specimen. A result of Detected suggests a current or recent infection and the patient is presumed to be infected. Positive and negative predictive values for this test are highly dependent on disease prevalence. A result of Invalid indicates the inability to conclusively determine the presence or absence of SARS-CoV-2 RNA in the sample which can be due to a variety of factors. Recollection is recommended in the case of an invalid result. CDC COVID-19 criteria for testing on human specimens and clinical management guidance information are available at the CDC Coronavirus Disease 2019 (COVID-19) webpage under Information for Healthcare Professionals (https://www.cdc.gov/coronavirus/2019-ncov/hcp/index.html). 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 MRSA PCR Screen ([facility] [place]/CGP/APD/NLH) [[id number]] Collected: 08/15/22 0050 Lab Status: Final result Specimen: Nasopharyngeal Swab Updated: 08/17/22 1419 MRSA Result Negative MRSA Interp -- Methicillin-resistant Staphylococcus aureus (MRSA) is NOT DETECTED The MRSA target DNA sequences (mec and SCC) were not detected within the acceptable ranges using the Xpert MRSA NxG on the GeneXpert Dx System ([employer]). This suggests the absence of MRSA in the patient specimen submitted for testing. This test is cleared by the U.S. Food and Drug Administration for clinical use and its performance characteristics have been verified by the [facility] at [facility]. This result does not rule out the presence of any other organisms. Rare false negative results may occur if MRSA is present at low concentrations with much higher concentrations of other organisms including MRSE or S. aureus with an empty SCC cassette. Comment: [VERIFIED DATE]08.17.22 Verified By:Shannon Smiley (Electronic Signature) Blood culture [[id number]] Collected: 08/14/22 2355 Lab Status: Final result Specimen: Blood Updated: 08/20/22 0701 Blood Culture No growth at 5 days. Imaging/Diagnostics: Results for orders placed or performed during the hospital encounter of 08/14/22 XR Chest One View (Exam End: 08/15/2022 1:00 AM) Impression FINDINGS/IMPRESSION: * Moderate pulmonary edema. * No confluent airspace opacity otherwise seen. * Cannot exclude small pleural effusions. * Cardiomediastinal contours appear within normal limits. * Endotracheal tube tip projects 3.8 cm above the consuelo. * RIGHT neck central catheter, distal catheter coiled over the region of the RIGHT ventricle and pulmonary trunk. Thank you for letting us participate in the care of this patient. If you are a health care provider and have any questions regarding this report, please contact the number below. For patients who have questions please contact the health acute care physician that requested your imaging first. Abdomen 1 view (Generic) (Exam End: 08/15/2022 8:33 AM) Impression The enteric tube sidehole is not definitively subdiaphragmatic. Recommend advancement. Preliminary report signed by: Carlos Wolff at 08/15/2022 9:00 AM I have personally reviewed the image(s) and the resident's interpretation and agree with the findings, Liliane Adams MD at 08/15/2022 9:05 AM Thank you for letting us participate in the care of this patient. If you are a health care provider and have any questions regarding this report, please contact the number below. For patients who have questions please contact the health acute care physician that requested your imaging first. Electronically signed by: Liliane Adams MD, [facility] ([phone]), at 08/15/2022 9:05 AM XR Chest One View (Exam End: 08/15/2022 1:14 AM) Impression FINDINGS/IMPRESSION: * RIGHT neck central catheter redemonstrated terminating over the region of the pulmonary trunk, now uncoiled distally although the tip is looped. * Moderate pulmonary edema redemonstrated. * ET tube projects similar. Thank you for letting us participate in the care of this patient. If you are a health care provider and have any questions regarding this report, please contact the number below. For patients who have questions please contact the health acute care physician that requested your imaging first. Abdomen 1 view (Generic) (Exam End: 08/15/2022 6:38 AM) Impression Nonspecific/nondiagnostic appearance of the abdomen, with large stool burden in the RIGHT hemiabdomen and pelvis. Thank you for letting us participate in the care of this patient. If you are a health care provider and have any questions regarding this report, please contact the number below. For patients who have questions please contact the health acute care physician that requested your imaging first. Chest One View (Exam End: 08/16/2022 10:31 AM) Impression PA catheter has a persistent loop near the tip, similar to the prior comparison study. Improved pulmonary edema. Thank you for letting us participate in the care of this patient. If you are a health care provider and have any questions regarding this report, please contact the number below. For patients who have questions please contact the health acute care physician that requested your imaging first. Electronically signed by: Alfonso Adams MD, [facility] ([phone]), at 08/16/2022 10:[address] Head wo Contrast (Generic) (Exam End: 08/16/2022 10:44 PM) Impression No acute intracranial abnormality and no change from prior Thank you for letting us participate in the care of this patient. If you are a health care provider and have any questions regarding this report, please contact the number below. For patients who have questions please contact the health acute care physician that requested your imaging first. Electronically signed by: Moustapha Correa MD, [facility] ([phone]), at 08/16/2022 11:19 PM XR Abdomen 1 view (Generic) (Exam End: 08/17/2022 12:09 PM) Impression Status post Dobbhoff tube placement with catheter tip terminating at the approximate position of greater curvature. I have personally reviewed the image(s) and the resident's interpretation and agree with the findings, Jenn Pina MD at 08/17/2022 2:31 PM Thank you for letting us participate in the care of this patient. If you are a health care provider and have any questions regarding this report, please contact the number below. For patients who have questions please contact the health acute care physician that requested your imaging first. Head wo Contrast (Generic) (Exam End: 08/18/2022 3:14 PM) Impression No acute intracranial process. Thank you for letting us participate in the care of this patient. If you are a health care provider and have any questions regarding this report, please contact the number below. For patients who have questions please contact the health acute care physician that requested your imaging first. Electronically signed by: Antonio Jordan MD, [facility] ([phone]), at 08/18/2022 3:18 PM XR Chest One View (Exam End: 08/19/2022 12:30 PM) Impression 1. Increased bibasilar airspace opacities compared to radiograph 08/16/2022, concerning for an infectious/inflammatory process. A component of edema not excluded. 2. Overall decreased pulmonary edema. I have personally reviewed the image(s) and the resident's interpretation and agree with the findings, Alan De Guzman MD at 08/19/2022 3:14 PM Thank you for letting us participate in the care of this patient. If you are a health care provider and have any questions regarding this report, please contact the number below. For patients who have questions please contact the health acute care physician that requested your imaging first. Electronically signed by: Alan De Guzman MD, [facility] ([phone]), at 08/19/2022 3:14 PM MRI Brain wo Contrast (Exam End: 08/19/2022 10:15 PM) Impression No acute infarction, mass or mass effect. Thank you for letting us participate in the care of this patient. If you are a health care provider and have any questions regarding this report, please contact the number below. For patients who have questions please contact the health acute care physician that requested your imaging first. Chest for Verifying Vascular Access PICC Placement At Bedside (Exam End: 08/19/2022 4:36 PM) Impression PICC tip is in the superior vena cava above the right atrium. Thank you for letting us participate in the care of this patient. If you are a health care provider and have any questions regarding this report, please contact the number below. For patients who have questions please contact the health acute care physician that requested your imaging first. Electronically signed by: Alan De Guzman MD, [facility] ([phone]), at 08/19/2022 4:[address] Hip w Contrast Left (Exam End: 08/20/2022 11:04 PM) Impression 1. Uncomplicated left femoral neck ORIF with unchanged postoperative alignment. 2. Moderate skin thickening and subcutaneous stranding about the lateral left hip with lateral left thigh intramuscular edema and fascial thickening. These findings are nonspecific and may be seen in the routine postoperative setting. Underlying soft tissue infection with infectious or inflammatory myositis may also have this appearance. Correlation with physical examination, clinical symptoms, and laboratory findings is recommended. 3. 2.3 x 1.6 x 1.8 cm focus of more coalescent fluid attenuation centered in the subcutaneous fat of the posterolateral thigh roughly at the level of the proximal femoral fixation screw heads. There is no rim-enhancing to suggest a mature, organized abscess at this time. However, this finding could represent phlegmon in appropriate clinical context, or it could represent a postsurgical collection, the contents of which may be sterile or infected. 4. There is a rectal tube in place. However, there remains a large stool ball in the rectum with free fluid versus coalescent edema on both the anterior and posterior margins of the distended rectum. In appropriate clinical context, these findings could represent proctocolitis or stercoral colitis. I have personally reviewed the image(s) and the resident's interpretation and agree with the findings, Aicha Chowdhury MD at 08/21/2022 9:34 AM Thank you for letting us participate in the care of this patient. If you are a health care provider and have any questions regarding this report, please contact the number below. For patients who have questions please contact the health acute care physician that requested your imaging first. Electronically signed by: Aicha Chowdhury MD, [facility] ([phone]), at 08/21/2022 9:[address] Chest w Contrast (Exam End: 08/20/2022 11:04 PM) Impression 1. Multifocal lower lobe predominant consolidative opacities with additional upper lobe opacities consistent with multifocal pneumonia. Compared to the prior CT of 08/12/2022 the number and size of the opacities has decreased. Recommend follow-up imaging in 3-6 months to document complete resolution. 2. New small, sub-1 cm early cavitation of multiple opacities predominantly within the posterior left upper lobe and left lower lobe. 3. New curvilinear splenic lesions could represent infarct versus late arterial phase splenic arterial opacification. Thank you for letting us participate in the care of this patient. If you are a health care provider and have any questions regarding this report, please contact the number below. For patients who have questions please contact the health acute care physician that requested your imaging first. Hip 2-3 Views Left (Exam End: 08/22/2022 12:19 AM) Impression No radiographic evidence of infection. Thank you for letting us participate in the care of this patient. If you are a health care provider and have any questions regarding this report, please contact the number below. For patients who have questions please contact the health acute care physician that requested your imaging first. Electronically signed by: Viktor Cervantes MD, [facility] ([phone]), at 08/22/2022 12:43 PM XR Pelvis (Generic) (Exam End: 08/22/2022 12:19 AM) Impression No radiographic evidence of infection status post left hip ORIF. Thank you for letting us participate in the care of this patient. If you are a health care provider and have any questions regarding this report, please contact the number below. For patients who have questions please contact the health acute care physician that requested your imaging first. Electronically signed by: Richard Billings MD, [facility] ([phone]), at 08/22/2022 10:[address] Angiogram Coronary Arteries (Exam End: 08/27/2022 8:58 AM) Impression Coronary calcium score of 0, consistent with no detectable calcified atherosclerotic plaque burden. No evidence of stenosing soft plaque on the coronary CT arteriogram. CAD RADS 0 Ongoing bilateral pulmonary infectious/inflammatory changes with persistent consolidative opacity especially in the left lower lobe. This could represent a multifocal pneumonia. Recommend follow-up CT in 3 months to assess for resolution. Thank you for letting us participate in the care of this patient. If you are a health care provider and have any questions regarding this report, please contact the number below. For patients who have questions please contact the health acute care physician that requested your imaging first. Electronically signed by: Arlette Mays MD, [facility] ([phone]), at 08/27/2022 11:[address] Chest wo Contrast (Generic) (Exam End: 08/27/2022 8:58 AM) Impression Stable findings of multifocal pneumonia. No interval abnormality. Thank you for letting us participate in the care of this patient. If you are a health care provider and have any questions regarding this report, please contact the number below. For patients who have questions please contact the health acute care physician that requested your imaging first. Electronically signed by: MINH QUIROGA MD, [facility] ([phone]), at 08/27/2022 10:48 AM XR Fluoro Barium Swallow (Modified/Video Swallow Pharynx) (Exam End: 08/31/2022 11:23 AM) Impression Abnormal modified barium swallow as above. Please see speech pathology report for further discussion. Thank you for letting us participate in the care of this patient. If you are a health care provider and have any questions regarding this report, please contact the number below. For patients who have questions please contact the health acute care physician that requested your imaging first. Electronically signed by: rAon Billings MD, [facility] ([phone]), at 08/31/2022 12:02 PM XR Fluoro Barium Swallow (Modified/Video Swallow Pharynx) (Exam End: 09/04/2022 10:25 AM) Impression 1. Penetration of the airway and aspiration with thin liquids, especially with rapid sips of thin barium. 2. Flash penetration of nectar thick liquids from a straw. 3. Reflux of residual barium within the esophagus on multiple swallows. I have personally reviewed the image(s) and the resident's interpretation and agree with the findings, Alfonso Adams MD at 09/04/2022 10:57 AM Thank you for letting us participate in the care of this patient. If you are a health care provider and have any questions regarding this report, please contact the number below. For patients who have questions please contact the health acute care physician that requested your imaging first. Electronically signed by: Alfonso Adams MD, [facility] ([phone]), at 09/04/2022 10:57 AM XR Abdomen 1 view (Generic) (Exam End: 09/04/2022 9:47 PM) Impression 1. On the chest radiograph at 2136 hours the enteric tube projects over the mid esophagus. On the abdominal radiograph at 2139 hours the enteric tube now projects below the diaphragm with tip partially visualized projecting over the left mid abdomen. 2. Lower lobe predominant patchy and reticular airspace opacities consistent with sequela of multifocal pneumonia. The appearance is improved compared to prior radiograph. Thank you for letting us participate in the care of this patient. If you are a health care provider and have any questions regarding this report, please contact the number below. For patients who have questions please contact the health acute care physician that requested your imaging first. Chest One View (Exam End: 09/04/2022 9:47 PM) Impression 1. On the chest radiograph at 2136 hours the enteric tube projects over the mid esophagus. On the abdominal radiograph at 2139 hours the enteric tube now projects below the diaphragm with tip partially visualized projecting over the left mid abdomen. 2. Lower lobe predominant patchy and reticular airspace opacities consistent with sequela of multifocal pneumonia. The appearance is improved compared to prior radiograph. Thank you for letting us participate in the care of this patient. If you are a health care provider and have any questions regarding this report, please contact the number below. For patients who have questions please contact the health acute care physician that requested your imaging first. Medications: Scheduled: ??? metoprolol tartrate 12.5 mg Oral 2 times per day ??? buPROPion 100 mg Oral Daily ??? valproic acid 300 mg Oral Q6H ??? insulin lispro 1-4 Units Subcutaneous Q4H LAZARUS ??? insulin glargine (Lantus;Semglee) (100 unit/mL) subcutaneous injection 7 Units Subcutaneous Daily ??? LORazepam 0.3 mg Intravenous Once ??? lidocaine 15 mL Subcutaneous Once ??? melatonin 6 mg Oral Nightly ??? insulin lispro protamine-insulin lispro 75/25 33 Units Subcutaneous Daily ??? miconazole nitrate Topical (Top) BID ??? sacubitriL-valsartan 1 tablet Oral BID ??? empagliflozin 10 mg Oral Daily ??? QUEtiapine 100 mg Oral Nightly ??? lidocaine 3 patch Transdermal Q24H ??? ergocalciferoL (vitamin D2) 50,000 Units Per NG tube Weekly ??? enoxaparin 40 mg Subcutaneous Daily ??? atorvastatin 80 mg Per NG tube QPM ??? folic acid 1,000 mcg Per NG tube Daily ??? ferrous sulfate 300 mg Per NG tube Every Other Day ??? chlorhexidine 15 mL Oral BID ??? pantoprazole 40 mg Intravenous BID ??? sodium chloride 0.9 % (flush) 5 mL Intravenous BID ??? thiamine 100 mg Intravenous Daily Continuous: ??? tube feeding diet Stopped (09/05/22 0604) PRN: diclofenac, barium sulfate, acetaminophen, ondansetron, iohexoL, polyethylene glycoL, senna, bisacodyL, potassium chloride in water OR potassium chloride in water OR potassium chloride in water, sodium chloride 0.9 % (flush), lidocaine, nitroGLYcerin, glucose 40% oral geL OR dextrose 10% OR glucagon ASSESSMENT and PLAN: Ishan Irving is a 62 y.o. female w/ PMH of L femoral neck fracture (s/p fixation early August),??bipolar disorder, resolving medication-induced Parkinsonism, insulin-dependent diabetes mellitus,??hx of alcohol use disorder (reported to be in remission for 1.5 years) c/b chronic pancreatitis,iron deficiency anemia,??GERD??c/b??esophagitis &??Farrell's esophagus, who was admitted to [facility] on 08/14/2022 (now on Hospital Day #22) for mixed shock with concern for stress cardiomyopathy (Takotsubo Cardiomyopathy) suspected to have been secondary to large volume aspiration from worsening dysphagia leading to aspiration pneumonia/pneumonitis. 09/05: Patient continues to be more interactive today than prior to starting bupropion and overall clinical status is similar to yesterday. Her affect is a bit morose, she continues to be dismayed today by setback experienced with needing FT replacement. While CXR prior to formal read seems to have a right sided pleural effusion, POCUS would suggest otherwise with some hepatization of lung base and otherwise no clear fluid collection. Will monitor closely with low threshold for antibiotics if new fever. Today's plan: - Titrate tube feeds today to 55ml/hr, plan to increase to goal of 110/hr tomorrow if well tolerated - Diabetes Team aware and titrating insulin accordingly - Chest X-ray today given concern for possible aspiration yesterday - POCUS - low threshold to start diuresis if new O2 requirement or antibiotics if fever Neuro: # Bipolar Disorder - Depakote 300 mg oral liquid per Dobhoff tube q6hr. - Continue Seroquel 100mg nightly - Will check VPA trough level 08/29. 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 - Psychiatry Consult, appreciate recs, recommended starting wellbutrin - Started Wellbutrin 100mg IR as other formulations cannot be crushed ?? Pulmonary: # Acute hypoxic respiratory failure, resolved. # Bilateral airspace opacities/multifocal pneumonia -??Respiratory support with LFNC PRN; currently on RA - Antibiotics: zosyn for pneumonia, stopped per ID - Fungitell and Fungal Cx positive, no change in management at this time per ID - CT Chest showed persistent pneumonia; ID followed, patient completed course of antibioitics ?? Cardiac: # Distributive Shock # NSTEMI Type I vs Type II # HFrEF (EF 25%) # C/f Stress Cardiomyopathy - Will not perform LHC given results of CTA coronary arteries. - ASA 81mg, Plavix 75mg, stopped today given low suspicion for CAD. - initially Losartan 25mg daily, now on entresto - Metoprolol 25mg daily, starting 08/30 as tartrate for Dobhoff - Spironolactone 12.5mg QD (held starting 08/30 in setting of NPO status) - Start entresto 24-26mg as part of GDT - Start empagliflozin 10mg as part of GDT - Continue Lovenox - Mg >1, K >4 ?? GI: # GERD c/b Farrell's esophagus & esophagitis # Constipation- resolved # Rectal wall edema 2/2 stool ball - Has Miralax, senna, dulcolax PRN ordered - Continue home pantoprazole 40 BID ?? Endocrine: # Insulin-dependent diabetes -??Diabetes Management consulted, appreciate recs - Continue Glargine 23u daily UNTIL 08/31 - hypoglycemic in AM intermittently, changed to 20u 08/31 -??Humalog 75/25 30 units before tube feeds. - Moderate SSI ?? Hematology/oncology: # Mixed JERRICA and ACD - Oral iron supplementation started 08/21. - Ferritin, Iron, TIBC resulted; mixed picture - Transfuse for Hb <8 - S/p 1u pRBC 08/22 ?? Infectious disease:?? # Septic shock # Bilateral airspace opacities/multifocal pneumonia # L Hip Fluid Collection # Subcentimeter left posterior upper lobe cavitary lesions - Infectious work-up initially did not yield any clear causative organisms - S/p BAL 08/21 without any growth to date. - IR, orthopedic surgery consulted for evaluation of L hip fluid collection. No intervention/drainable target. - Stopped zosyn as per ID (08/14- 08/23) - Fungal testing positive no change in management at this time per ID #Housekeeping: DVT PPx: LMWH SCD GI PPx: Diet: Full Liquid; Thick Liquid (Pudding) Lines: PICC Line - Double Lumen 08/19/22 1655 basilic vein (medial side of arm), right 5 Fr (Active) Number of days: 16 D/c planning: TBD pending clinical course Code status: Attempt Cardiopulmonary Resuscitation - Inpatient Irwin Jones MD Internal Medicine PGY1 Medicine Team: Jose Juan, Pager #[phone] Date: 09/05/2022 Associated attestation - Richard Pascal MD - 09/05/2022 9:24 PM EDT Attending Attestation and Certification Please see Irwin Jones MD's note for details of the patient history of presentation and data. I have discussed, reviewed and agree with the documented History, Physical findings, Assessment and Plan of care. I have examined the patient myself and personally reviewed all studies. In addition, I certify thatI am a [facility] credentialed attending provider with admitting privileges and that the patient meets or has met medical necessity to require an inpatient IPI level of care meeting a minimum of two midnights or is on the [facility] inpatient only procedure list (status C) due to: monitoring of fluid status given an inability to regulate fluid balance and the need for administration or restriction of fluids and acute respiratory compromise and/or hypoxia requiring assessment every 4 hours and the ability to respond immediately to the patient's need Wean oxygen as tolerated. CXR showed right lower lobe opacity, POCUS exam was negative for pleural effusion but did show ultrasonographic consolidation, which in the clinical context is likely atelectasis. NG tube placed, tube feeds increasing to goal. Insulin decreased given change in tube feeds, anticipate need for increased dose of insulin once tube feeds are at goal. Pending PEG tube placement early next week. We suspect ongoing swallowing difficulty is related moreso to chronic GERD/Barretts rather than any Parkinsonian muscular dysfunction, given ongoing improvement in this per outpatient neurology notes. As discussed with GI last week, EGD is not indicated at this time as she has had one done in the recent past. * Elsie Erickson APRN - 09/05/2022 7:10 AM EDT Follow Up Diabetes Consult Patient Interview Blood glucose values and insulin use reviewed. Minimal PO intake yesterday with MBS. Low blood sugars resulting in setting of held tube feeds. TFs started back at 20mls/hr now at 55mls/hr, goal for 110mls at 6pm tonight. TF is ordered as cyclic, RN clarifying timing. Will likely have PEG placed Wednesday. Objective Temp: [36.2 ??C (97.2 ??F)-36.8 ??C (98.2 ??F)] Heart Rate: [62-91] Resp: [16-20] BP: (87-109)/(46-67) SpO2: [84 %-98 %] Heart Rate from SpO2: -- Current Regimen from previous note Lantus:14??units?? Humalog??75/25??mixed insulin??33 units??administered 10-15 minutes before starting peptamen AF at 98mls/hr x 12 hours To cover 130 grams carbs in 12 hour cycle Lispro for correction q 4 hours based on a correction factor of??20?? Diet??sips and chips and Peptamen AF with goal of 98mls/hr Monitoring:??Q4 Recent Glucose Levels Recent Labs 09/05/22 0410 09/05/22 0118 09/04/22 2216 09/04/22 2049 09/04/22 1720 09/04/22 1639 09/04/22 1521 09/04/22 1107 09/04/22 0718 09/04/22 0335 09/04/22 0019 09/03/22 1930 POCGLU 162 98 138 73 136 64* 68 107 106 107 125 166 ASSESSMENT Ishan Irving is a 62 year old female with a medical history notable for??recent L femoral neck fracture,??bipolar disorder, resolving medication- induced Parkinsonism, insulin-dependent diabetesmellitus,??hx of alcohol use disorder (reported to be in remission for 1.5 years) c/b chronic pancreatitis, iron deficiency anemia,??GERD??c/b??esophagitis &??Farrell's esophagus??presenting in transfer from [facility], suspected to be in cardiogenic shock and found to be in mixed shock with concern for stress cardiomyopathy.??A1C of 6.2% upon admission suggesting an average BG of??131??mg/dL for the past 6-8 weeks. Currently has variability of blood glucose levels while hospitalized requiring adjustment of insulin regimen and DM medications. TFs held yesterday for MBS resulting in low blood sugars, lantus decreased by 50% this am. TFs Ordered as cycled 6am to 6pm though at this time rate is increasing to goal of 110mls/hr. RN confirming timing for cycle with primary team. Reviewed with nursing that mixed insulin will be held until TF at goal, then can be administered based on a 1:4 ICR. Lantus will be increased back to 14units now that TFs are running and correction adjusted to moderate scale. PLAN Lantus:14??units?? Humalog??75/25??mixed insulin: HOLD until TFs at goal and pt is tolerating. Lispro for correction q 4 hours based on a correction factor of??20?? Diet??sips and chips and Peptamen AF with goal of 110 mls/hr Monitoring:??Q4 Elsie Erickson APRN [facility] Endocrinology Diabetes Management Pager [phone] 20 minutes of this 35 minute visit was spent with the patient in counseling on diabetes and treatment plan, reviewing all glucose and insulin data as well as relevant laboratory results with the patient, and coordination of care on the inpatient unit including nursing and primary team. * Feroz Portillo, STONE BREAKER - 09/04/2022 1:50 PM EDT Physical Therapy Note Treatment Number PT: 8 Patient profile: Ishan Irving is a 62 y.o. female admitted on 08/14/2022 with a medical history notable for??recent L femoral neck fracture,??bipolar disorder, resolving medication-induced Parkinsonism, insulin-dependent diabetes mellitus,??hx of alcohol use disorder (reported to be in remission for 1.5 years) c/b chronic pancreatitis, iron deficiency anemia,??GERD??c/b??esophagitis &??Farrell's esophagus??presenting in transfer from [facility], suspected to be in cardiogenic shock and found to be in mixed shock with concern for stress cardiomyopathy. She is s/p ORIF left femoral neck fracture ~ 08/08 at OSH. Interval History: Uneventful Social History: single level home w ramp to enter. 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 Pt drives, does all community chores. Does have a RW avail at home which she had been using since ORIF. Fall Hx: Spouse reports that pt slipped in a puddle of water left by the dog which is the cause of her hip fx Precautions/Special Considerations: WBAT L leg, Fall risk, dobhoff Mobility and Positioning Recommendations: ?? Pt transfers bed to chair w RW and Ax 2 and fww, ?? Please encourage up to chair for meal times as able. Subjective: Why am I so scared of falling? Objective: Patient seen for physical therapy and demonstrated the following: Pain: no c/o pain Vital Signs: stable on room air. ?? Pt supine in bed, agreeable to therapy ?? Supine to sit, HOB slightly elevated, Min A for trunk ?? Steady sitting edge of bed, extra time required to scoot toward the edge ?? Stand pivot transfer from bed to wheelchair, FWW, Min A x 2, cues for walker management, pt sitsprematurely on the edge of the chair, able to scoot her hips backward ?? Brought down to in-pt gym ?? Stand pivot transfer to and from Nu step, FWW and Min A x 2 ?? Nu step for 5 minutes, no resistance, occasional rest breaks, display not working for distance or speed ?? Brought to // bars ?? Sit<->stand x 4 in the // bars, Min A x 2 ?? Ambulated 3 ft x 2 and 7 ft x 2 in the // bars, chair follow, CGA x 2, mulitple rest breaks, anxious and fearful of falling, able to take multiple steps in a row without sitting ?? Sit<->stand x 2 to FWW, Min-Mod A x 2 ?? Ambulated 3 steps forward x 2 with FWW and chair follow, Min A x 2, anxious and requesting to sit quickly ?? Brought back to pt's room ?? Stand pivot wheelchair to bed, FWW and Min A x 2, ?? Sit to supine, Min A for LE's ?? Pt left supine in bed, with all needs met and with call rolando in reach following visit. Education: Pt edu re: goals of rx, activity progression Assessment: Ishan Irving was seen today for physical therapy treatment session for continuation of POC. Improved engagement during PT session, verbalizing more and smiling occasionally. Continues to be anxious with transfers and using the walker, sits early but makes it to her destination. Able to ambulate further distances in the // bars today, pt reports feeling more secure while in the// bars. Tolerating longer PT sessions and motivated to progress back to prior level of function, good acute rehab candidate. Pt will benefit from ongoing therapeutic interventions to achieve therapygoals. Discharge Recommendations: Based on the current findings, Anticipated Discharge Disposition (PT): acute rehabilitation facility when medically ready for hospital discharge. Consult Recommendations: No other consults recommended at this time. Equipment needs: none Anticipated Equipment Needs at Discharge (PT): to be determined Physical Therapy Goals: To be achieved by 09/07/22: Ongoing ?? 1. Pt. will demonstrate understanding of appropriate exercises and perform them independently or with family. 2. Pt. will perform bed mobility with modified independence. 3. Pt. will perform sit to stand transfers with min A using a front wheeled walker. 4. Pt. will ambulate 10 feet with mod A using a a front wheeled walker. Pt. will ascend/descend step/stairs sufficient for home using rail and assist of 1 Plan: Therapy Frequency (PT): 2-4 times/wk for skilled PT rx as outlined in initial evaluation. Patient agrees with plan as stated. Time IN / OUT: 13:05-13:50 Total Minutes, Physical Therapy: 45 Billing Code: TE-F x 3 FEROZ PORTILLO PTA Pager: [phone] Physical Therapy Inpatient Rehabilitation Department * Micheline Long, GAS STATION SUPERVISOR - 09/04/2022 9:48 AM EDT Speech-Language Pathology Modified Barium Swallow Re-Evaluation ?? Patient Profile:??Ishan Irving is a 62 year old female with a medical history notable for??recent L femoral neck fracture,??bipolar disorder, resolving medication-induced Parkinsonism, insulin-dependent diabetes mellitus,??hx of alcohol use disorder (reported to be in remission for 1.5 years)c/b chronic pancreatitis, iron deficiency anemia,??GERD??c/b??esophagitis &??Farrell's esophagus??presenting in transfer from [facility]??on 08/14/2022, suspected to be in cardiogenic shock and found to be in mixed shock with concern for stress cardiomyopathy.??GAS STATION SUPERVISOR service was consulted to assess oropharyngeal swallow function post-extubation. Service continues to follow for dysphagia. ?? Prior Level of Swallow Function: Concern for regurgitation and aspiration prior to admission, knownhx of Farrell's esophagus and GERD. Pt was pending barium swallow prior to admission as well. Reason for Testing: Concern for oropharyngeal dysphagia; Re-testing for improvements in swallowing function Previous Instrumental Swallow Testing (MBSS/FEES?): MBS completed 08/31/2022 Relevant Imaging: Modified Barium Swallow Study (08/31/2022) - Petty Mccullough, GAS STATION SUPERVISOR ??? Audible aspiration with thin liquids by straw, cough was ineffective at clearing airway. ??? Silent aspiration with puree solids occurred after the swallow on pharyngeal residue during subsequent follow-up swallow. ??? Moderate pharyngeal residue did not fully clear with strategies, eventually resulted in aspiration. ??? Presence of Dobhoff tube did negatively impact epiglottic inversion and airway protection- however I suspect even with DHT removed Pt would still have impaired pharyngeal clearance and subsequentaspiration. ??? I am hopeful that Pt's swallow function will improve with time + swallow therapy and improvements in physical mobility and cognitive status. At this time, swallow function is very inefficient andPt requires max assist to use safety strategies. ??? Consider long-term means of nutrition/hydration to provide nutrition during rehab course. GAS STATION SUPERVISOR will f/u for ongoing swallow intervention and therapeutic trials. Barium swallow (esophagram) will be helpful at later date, however Pt is at high potential for aspiration during study d/t positioning requirements for barium swallow. Subjective: Pt was encountered in radiology. She was pleasant and engaged throughout this evaluation. Objective: Pt seen for evaluation today. Radiologist was present for entire study. Pain: Did not appear to be in acute distress at the time of this evaluation. Current Diet: NPO- DHT pulled this morning pending MBS re-evaluation Feeding / Oral Care Status: Pt is dependent Cognitive-Linguistic Status: delayed processing per primary GAS STATION SUPERVISOR; Pt presented today with a flat affect, but was able to follow single-step commands and employ compensatory strategies. Positioning: Sitting in Haustead chair at approximately 85 degrees hip flexion. Oral / Laryngeal Mechanism Clinical Assessment: ?? Lingual: Adequate range and rate of motion ?? Labial / Buccal: Adequate pucker-smile, no overt asymmetry ?? Velar: Elevates bilaterally ?? Sensation: Denies numbness/tingling ?? Vocal fold function and airway protection: Appears adequate, strong volitional cough ?? Speech Intelligibility: 100% intelligible ?? Mucosa: Dry ?? Dentition: multiple missing teeth Bolus Presentation(s): (all mixed with Barium) Thin liquid [place] consistency thickened liquid Puree Regular consistency Oral Preparatory Phase Lip closure: No labial escape Tongue control during bolus hold: Posterior escape of less than half the bolus Bolus preparation/mastication: Timely and efficient chewing and mashing Bolus transport/Lingual motion: Repetitive / disorganized tongue motion w/ lingual pumping Oral residue: Residue collection on oral structures (base of tongue) Initiation of pharyngeal swallow: Bolus head in the, Thin liquid: pyriform sinuses [place] thick liquid: valleculae Puree: valleculae Regular: valleculae The oral phase was characterized by inability to complete a bolus hold, premature posterior spillage to the pyriform sinuses for thin liquids and valleculae for all other consistencies, and mild baseof tongue residue. Pharyngeal Phase: Soft palate elevation: No bolus between soft palate / pharyngeal wall Laryngeal elevation: Partial superior movement of thyroid cartilage / partial approximation of arytenoids to epiglottic petiole Anterior hyoid excursion: Partial anterior movement Epiglottic movement: Complete inversion Laryngeal vestibule closure: Incomplete; narrow column air / contrast in laryngeal vestibule Pharyngeal stripping wave: Present - complete Pharyngeal contraction: Unable to assess A/P view d/t pt positioning PE segment opening: Complete distension and complete duration; no obstruction of flow Tongue base retraction: Trace column of contrast between tongue base and posterior pharyngeal wall Pharyngeal residue: Collection of residue within or on pharyngeal structures The pharyngeal phase was characterized by adequate laryngeal elevation and epiglottic inversion, but limited anterior movement of the hyoid and incomplete laryngeal vestibule closure. Collection of residue in the valleculae remained for all consistencies resulting in penetration and aspiration occurring after the swallow for the following trials. Thin liquids: via tsp- no penetration/aspiration, via straw (single sip)- flash penetration, via straw (sequential sips)- audible aspiration [place] thick liquids: via straw (single and sequential sips)- flash penetration x1, no aspiration Puree: via spoon (single bite)- no penetration/aspiration, (sequential bites)- flash penetration Regular: single bite- no penetration/aspiration Esophageal Phase: Esophageal clearance upright position: Unable to assess A/P view d/t pt positioning Suspect possible esophageal phase dysphagia d/t GERD??c/b??esophagitis &??Farrell's esophagus Able to see the bolus come back into the pharynx concerning for esophageal retention. See radiologist's note for details. After the study pt was noted to have two eisodes of regurgitation of the bolus that she expectorated. Modifications Attempted: Multiple swallows: required verbal cueing for each swallow; effective in clearing vallecular residue Liquid assist: minimally effective in clearing vallecular residue, often required cue for dry swallow regardless Aspiration / Penetration Scale Score (Stefania Hale et al. Dysphagia, 111995) 1 = no material enters the airway 2 = material enters the airway, does not touch the vocal cords, and is completely ejected 3 = material enters the airway, does not touch the vocal cords, but is not ejected 4 = material enters the airway, contacts the vocal cords, but is ejected 5 = material enters the airway, contacts the vocal cords, but is not ejected 6 = material enters the airway, passes below the vocal cords, and is ejected 7 = material passes below the vocal cords, is not ejected, but there is effort made to expel material 8 = material passes below the vocal cords, and there is no attempt to eject it Dysphagia Outcome Severity Scale (MIGUEL ANGEL): Level 3: Moderate dysphagia: Total assist, supervision, or strategies, two or more diet consistencies restricted May exhibit one or more of the following: -Moderate retention in pharynx, cleared with cue -Moderate retention in oral cavity, cleared with cue -Airway penetration to the level of the vocal cords without cough with two or more consistencies -Or aspiration with two consistencies, with weak or no reflexive cough -Or aspiration with one consistency, no cough and airway penetration to cords with one, no cough RISK FACTORS FOR ASPIRATION PNEUMONIA X (Drug-induced Parkinsonism) Stroke or other neurological disease + number decayed teeth, poor oral hygiene COPD, CHF X Dependency for oral care and/or feeding X GI disease, especially esophageal dismotility Reduced mobility, bed bound Active tobacco use X Use of tube feed, especially via NGT/DHT (removed for this study; ? PEG placement pending) Immunocompromised HOB below 30 degrees Use of sedating medications or PPI UTI X Reduced level of alertness and/or delirium Advanced age Education: GAS STATION SUPERVISOR informed pt that she would return to talk to her about the results and updated recommendations. Results and recommendations relayed to Irwin Jones MD via secure chat. Addendum: GAS STATION SUPERVISOR returned to pt's room at 1230 to discuss results and recommendations. Informed pt of recommendation to maintain NPO status d/t regurgitation pending GI re-involvement. Plan to continue with swallow therapy for oropharyngeal dysphagia, but will defer recommending an oral diet at this ti me d/t pharyngoesophageal retention and subsequent reflux resulting in suspected aspiration. She endorsed recent PNA associated with her dysphagia. Pt verbalized understanding and agreement with the treatment plan and informed GAS STATION SUPERVISOR of her continued goal to resume consuming a regular diet. Results and recommendations discussed with RN. Assessment: Ishan Irving was seen on 09/04/2022 for a repeat MBS d/t reports of improving swallowing function bringing pt close to baseline level of functioning. Results of this study reveal the following: Pt presents with moderate oropharyngeal phase dysphagiacharacterized by audible aspiration of thin liquids and flash penetration of nectar thick and pureed consistencies all occurring after the swallow. Mild-moderate retention in the valleculae was notedfor all consistencies, generally cleared with a cue for a dry swallow (trace residue remaining). She was unable to independently sense and clear retention. Notably, for all trials after puree and regular consistencies were introduced, the bolus could be seen coming back through the UES into the pharynx before clearing again. While no regurgitation was seen on imaging, immediately after the study p t had two episodes of regurgitation into the oral cavity and expectorated the bolus. This compares to the previous study dated 08/31/2022 where audible aspiration of thin liquids also occurred with an ineffective cough. Pharyngeal residue appears to be unchanged as compared to the previous study and continues to be concerning for subsequent aspiration. Swallow function continues to be inefficient and pt requires max verbal cueing to use swallow strategies. While aspiration only occurred on thin liquid trials during this study, pt's overall presentation does not appear significantly improved since the previous study where she silently aspirated onpurees. Additionally, the regurgitation of the bolus that occurred after the study was completed isconcerning for bottom-up aspiration as pt was noted to cough after this occurred. It is important to note that this regurgitation was also witnessed by primary GAS STATION SUPERVISOR Petty Mccullough in the most recent treatment session and was reported to the primary GAS STATION SUPERVISOR to be consistent with her baseline for the past year. In considering all of this evidence, it seems that her swallowing function fluctuates moment to moment. Implementation of an oral diet and/or PEG placement both are likely to result in an aspiration event due to this regurgitation. Prognosis for ability to safely maintain/nutrition/hydration by mouth is poor at this time. Potential for aspiration-related pulmonary compromise is high based on MBS findings including fluctuating swallowing function and significant regurgitation. Strongly recommend further GI involvement for work-up of esophageal phase dysphagia. Recommend NPO with trials of nectar thick liquids with GAS STATION SUPERVISOR only. As pt's mental status continues to improve, she may benefit from swallow exercises targeting the pharyngeal phase of the swallow. However, swallow safety and efficiency appear significantly impacted by the esophageal phase of the swallow. Pt will require alternative means of nutrition to meet nutritional needs. Pt would benefit from skilled GAS STATION SUPERVISOR services to maximize swallow function and safety to address limitations as noted above. Primary GAS STATION SUPERVISOR Petty Mccullough will continue to follow. Diagnosis: Moderate oropharyngeal dysphagia; esophageal phase dysphagia Recommendations: Diet: NPO PO Medications: IV or alternative means only Aspiration precautions: Excellent oral care Speech Therapy Goals: (To be met by discharge) Swallow: Pt will tolerate least restrictive diet without evidence of dysphagia / aspiration. Pt / caregiver will be independent with aspiration precautions, diet modifications, and ??safe swallowing strategies. Pt will demonstrate effortful swallows with good execution Pt will independently demonstrate lingual, labial, buccal, facial exercises with good execution Pt will maintain hydration / nutrition with optimal safety and efficiency.? Pt will participate in Modified Barium Swallow Study. ?? Delirium:?? Pt will improve orientation to x4 consistently with use of frequent re- orientations and visual aides in room as able. Pt will participate in simple reasoning and memory tasks to promote cognitive simulation and reducerisk of delirium Pt/caregivers will follow anti-delirium precautions independently with assist from??staff as needed Pt will participate in ongoing cognitive-linguistic evaluation. Plan: Therapy Frequency (GAS STATION SUPERVISOR Eval): 3-5x/wk Pt unable to give informed agreement with plan at this time due to decreased MS. Total Minutes (Speech Language Pathology): 30 Thank you for this consult with this patient. Please feel free to page me with any questions or concerns. Micheline Long, MS, [facility]-GAS STATION SUPERVISOR Speech-Language Pathologist Pager # [phone] * Alla Gonzalez RN - 09/04/2022 9:30 AM EDT NGT tube removed per MD. Pt is okay to travel off unit for MBS per MD order * Irwin Jones MD - 09/04/2022 7:24 AM EDT Images from the original note were not included. Inpatient Hospital Medicine Progress Note 09/04/2022 Patient Name: ISHAN IRVING Date of : 1960 Age: 62 y.o. Hospital Admit Date: 08/14/2022 Hospital Day: 21 Inpatient Attending: Tenisha Sandy MD PCP: Chris Stanley APRN ([phone]) No chief complaint on file. ID: Ishan Irving is a 62 y.o. 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.5 years) c/b chronic pancreatitis, iron deficiency anemia, ??GERD??c/b??esophagitis &??Farrell's esophagus, who was admitted to [facility] on 08/14/2022 (now on Hospital Day #21), and transferred to Hospital Medicine team from Cardiology on 08/30 for mixed shock with concern for stress cardiomyopathy (Takotsubo Cardiomyopathy). 24 HOUR EVENTS & SUBJECTIVE: Yesterday: - GAS STATION SUPERVISOR evaluated, NPO, ice chips for pleasure recommended yesterday, plan for MBS without FT tomorrow - Palliative Care consulted and met with patient - OT met with patient, recommend acute rehab facility - Psych met with patient, recommended continuing once daily dosing of Bupropion IR - GI consulted and recommends patient continue working w/GAS STATION SUPERVISOR, can consider PEG if inadequate improvement - Given Venofer x 1 dose Overnight: - NAEO - Mag repleted at shift change per goal >1 Today AM: pt reports the following: Patient reports she feels tired today from poor sleep overnight but otherwise well. Mood remains markedly improved. No new fevers, chills, myalgias, arthralgias. No pain at present. No other concernsthis AM. OBJECTIVE: Vitals: Last value Range last 24 hrs Temperature Temp: 36.8 ??C (98.2 ??F) Temp: [36.5 ??C (97.7 ??F)-36.9 ??C (98.4 ??F)] Heart Rate Heart Rate: 78 Heart Rate: [65-89] Blood Pressure BP: 128/58 BP: (101-128)/(50-84) Art Line BP BP (Arterial Line): 111/70 BP (Arterial Line): -- MAP (NBP): [66 mmHg-95 mmHg] Respiratory Rate Resp: 16 Resp: [14-18] SpO2 SpO2: 98 % SpO2: [93 %-98 %] Oxygen Delivery Oxygen Therapy O2 Device: None (Room air) O2 Flow Rate (L/min): 3 L/min FiO2 (%): 21 % Reason for Oxygen: Patient currently on room air Intake/Output Summary (Last 24 hours) at 09/04/2022 0724 Last data filed at 09/04/2022 0547 Gross per 24 hour Intake 1516 ml Output 600 ml Net 916 ml I/O last 3 completed shifts: In: 1756 [P.O.:25; NG/GT:1416] Out: 850 [Urine:850] Last Bowel Movement: 09/03/22 Body mass index is 29.69 kg/m??. Patient Vitals for the past 168 hrs: Weight 09/04/22 0554 68.9 kg (152 lb) 09/03/22 0600 69.9 kg (154 lb) 09/02/22 0550 70.1 kg (154 lb 8 oz) 09/01/22 0600 68.1 kg (150 lb 3.2 oz) 08/31/22 0600 67.7 kg (149 lb 4.8 oz) 08/30/22 0600 67.8 kg (149 lb 6.4 oz) 08/29/22 0451 70.4 kg (155 lb 3.2 oz) Admit wt: 69 kg Physical Exam: GENERAL: Awake, moderately somnolent, no acute distress, dobhoff in place w/well-fitting bridle HEENT: Anicteric, no conjunctival injection CV: RRR, no murmurs/rubs/gallops, 2+ radial/DP pulses PULM: Normal respiratory effort, CTA with good air entry bilaterally, coarse bibasilar breath sounds improved versus yesterday ABDOMEN: Soft, non-tender, non-distended, no masses, no guarding EXTREMITIES: No lower extremity edema. No clubbing or cyanosis PSYCH/NEURO: flattened affect and intact cognition, no tremor, minimal cogwheeling UEs SKIN: Warm, dry, no rashes LABS: CBC: Recent Labs 09/04/22 0026 09/03/22 0040 09/02/22 0105 09/01/22 0210 08/31/22 0430 WBC 6.7 5.1 5.9 5.5 6.7 HGB 8.5* 8.4* 8.3* 8.7* 8.7* HCT 28.1* 27.1* 27.7* 28.5* 29.2* PLATELET 300 305 344 361* 330 NEUTROABS 4.05 2.19 2.83 2.52 4.03 Retic count 09/02: 2.2% (high normal), Retic hgb 22.9% (low), immature Retic 45% (very high), absolute 0.08 (normal range) Chemistry: Recent Labs 09/04/22 0026 09/03/22 0040 09/02/22 0105 09/01/22 0210 08/30/22 0405 NA 141 138 136 140 140 K 4.3 4.1 4.4 4.6 4.1 CL 104 102 100 104 104 CO2 29 29 30 29 28 BUN 30* 28* 30* 29* 19* CREATININE 0.53* 0.49* 0.52* 0.51* 0.50* GLUCOSE 131 107 114 86 133 ANIONGAP 8 7 6 7 8 Recent Labs 09/04/22 0026 09/03/22 0040 09/02/22 0105 09/01/22 0210 08/31/22 0430 08/30/22 0405 CALCIUM 9.4 9.2 9.5 9.4 -- 9.4 MAGNESIUM 0.88 0.96 0.87 0.94 0.81 0.90 PHOS 3.2 3.4 3.9 4.3 3.4 3.7 LFT's: Recent Labs 08/20/22 1400 08/15/22 0950 08/15/22 0305 BILITOT <0.2* <0.2* 0.2 BILIDIR 0.1 0.1 0.1 ALBUMIN 2.5* 2.4* 2.4* ALKPHOS 213* 102 99 ALT 20 12 13 AST 39* 21 25 Coags: No results for input(s): PT, INR, PTT, FIBRINOGEN, DDIMER in the last 168 hours. Invalid input(s): THROMBIN TIME No results for input(s): INR in the last 168 hours. Cardiac enzymes: Recent Labs 08/19/22 0120 08/14/22 2355 CK 32 -- PROBNP -- >35,000* Endocrine: Recent Labs 08/20/22 1400 08/15/22 0000 TSH 1.90 0.28 Recent Labs 08/15/22 0305 HA1C 6.2* CRP, Sed Rate Recent Labs 08/21/22 1200 CRP 19.4* SEDRATE >119* Lipids: Lab Results Component Value Date CHLPL 110 08/29/2022 HDL 34 08/29/2022 CHOLHDL 3.2 08/29/2022 TRIG 127 08/29/2022 LDLCHOL 51 08/29/2022 Heme: No results for input(s): LDH, HAPTOGLOBIN, URICACID in the last 168 hours. ABG (Arterial Blood Gas): No results found for: PHART, PO2ART, HWH6VFJ, HHY8XOD VBG (Venous Blood Gas): No results for input(s): PHVEN, YNU7YVX, PO2VEN, ZIX8NSO, BEVEN, VYT5UFL in the last 72 hours. EKG: Lab Results Component Value Date/Time DIAGLINE 09/01/2022223 Normal sinus rhythm T wave abnormality, consider inferior ischemia T wave abnormality, consider anterolateral ischemia Prolonged QT Abnormal ECG When compared with ECG of 16-AUG-2022 03:24, Criteria for Septal infarct are no longer Present T wave inversion less evident in Inferior leads Confirmed by MD Amada, Tae ([id number]) on 09/01/2022 4:28:11 PM QTCCALC 475 09/01/2022223 Vascular: No results found for: VBTEXTRPT Microbiology: Date Type Result Lab Results Component Value Date/Time URINECULTURE 1,000-9,000 cfu/ml Insignificant growth 08/15/2022 1225 Lab Results Component Value Date/Time GRAMSTAIN 08/21/2022 1650 Few Neutrophils seen No squamous epithelial cells seen No microorganisms seen. GRAMSTAIN 08/21/2022 1645 Moderate Neutrophils seen No squamous epithelial cells seen No microorganisms seen. GRAMSTAIN 08/19/2022 1451 Many Neutrophils seen Few squamous epithelial cells seen No microorganisms seen. LOWERRESPCX 08/21/2022 1650 Rare mixed bacterial morphotypes suggestive of normal upper respiratory wiley Lab Results Component Value Date/Time BLOODCX No growth at 5 days. 08/19/2022 1720 BLOODCX No growth at 5 days. 08/19/2022 1330 BLOODCX No growth at 5 days. 08/15/2022 0110 BLOODCX No growth at 5 days. 08/14/2022 2355 Microbiology Results (Last 30 days) Procedure Component Value Units Date/Time Lower Respiratory Culture Bronchial Alveolar Lavage [[id number]] Collected: 08/21/221649 Lab Status: Final result Specimen: Bronchial Alveolar Lavage Updated: 08/23/22 0741 Lower Respiratory Culture Rare mixed bacterial morphotypes suggestive of normal upper respiratory wiley Gram Stain -- Few Neutrophils seen No squamous epithelial cells seen No microorganisms seen. Fungus Culture & Calc Stain Bronchial Alveolar Lavage [[id number]] (Abnormal) Collected: 08/21/221649 Lab Status: Preliminary result Specimen: Bronchial Alveolar Lavage Updated: 08/24/22 1452 AFB culture Bronchial Alveolar Lavage [[id number]] Collected: 08/21/221649 Lab Status: Preliminary result Specimen: Bronchial Alveolar Lavage Updated: 08/24/22 2219 Acid Fast Bacilli Culture -- No Acid Fast Bacilli isolated to date If active tuberculosis is suspected, the patient should be on [employer] PRECA[employer]IONS. Call Infection Prevention for assistance if needed. Acid Fast Stain No Acid Fast Bacilli seen Fungus culture [[id number]] (Abnormal) Collected: 08/21/221649 Lab Status: Preliminary result Specimen: Bronchial Alveolar Lavage Updated: 08/24/22 145 Fungus Culture Rare Jacky albicans Calcofluor White Stain [[id number]] Collected: 08/21/221649 Lab Status: Final result Specimen: Bronchial Alveolar Lavage Updated: 08/21/22 2016 Calcofluor Stain Calcofluor White Preparation: Negative Lower Respiratory Culture Bronchial Alveolar Lavage [[id number]] Collected: 08/21/22 164 Lab Status: Final result Specimen: Bronchial Alveolar Lavage Updated: 08/23/22 0741 Lower Respiratory Culture Rare mixed bacterial morphotypes suggestive of normal upper respiratory wiley Gram Stain -- Moderate Neutrophils seen No squamous epithelial cells seen No microorganisms seen. Fungus Culture & Calc Stain Bronchial Alveolar Lavage [[id number]] (Abnormal) Collected: 08/21/221644 Lab Status: Preliminary result Specimen: Bronchial Alveolar Lavage Updated: 08/24/22 1453 AFB culture Bronchial Alveolar Lavage [[id number]] Collected: 08/21/221644 Lab Status: Preliminary result Specimen: Bronchial Alveolar Lavage Updated: 08/24/22 222 Acid Fast Bacilli Culture -- No Acid Fast Bacilli isolated to date If active tuberculosis is suspected, the patient should be on [employer] PRECAUTIONS. Call Infection Prevention for assistance if needed. Acid Fast Stain No Acid Fast Bacilli seen Fungus culture [[id number]] (Abnormal) Collected: 08/21/22 164 Lab Status: Preliminary result Specimen: Bronchial Alveolar Lavage Updated: 08/24/22 1453 Fungus Culture Rare Jacky albicans Calcofluor White Stain [[id number]] Collected: 08/21/221644 Lab Status: Final result Specimen: Bronchial Alveolar Lavage Updated: 08/21/22 2017 Calcofluor Stain Calcofluor White Preparation: Negative Blood culture [[id number]] Collected: 08/19/22 1720 Lab Status: Final result Specimen: Blood Updated: 08/24/22 2301 Blood Culture No growth at 5 days. Lower Respiratory Culture Sputum Induced [[id number]] Collected: 08/19/22 1451 Lab Status: Final result Specimen: Sputum Induced Updated: 08/21/22 0948 Lower Respiratory Culture Rare mixed bacterial morphotypes suggestive of normal upper respiratory wiley Gram Stain -- Many Neutrophils seen Few squamous epithelial cells seen No microorganisms seen. Blood culture [[id number]] Collected: 08/19/22 1330 Lab Status: Final result Specimen: Blood Updated: 08/24/22 1501 Blood Culture No growth at 5 days. Legionella Urinary Antigen [[id number]] Collected: 08/18/22 1013 Lab Status: Final result Specimen: Urine Updated: 08/18/22 2252 Legionella Urinary Antigen Negative Comment: A negative Legionella Urinary Antigen by EIA suggests no recent or current infection with L. pneumophila Serogroup 1. Antigen may not be present in urine in early infection, and the level of antigen present in the urine may be below the detection limit of the test. Sensitivity: 95% Specificity 95%. Urine culture Indwelling Catheter Urine; Other; sepsis, bacteria on UA [[id number]] Collected: 08/15/22 1225 Lab Status: Final result Specimen: Indwelling Catheter Urine Updated: 08/16/22 0804 Urine Culture 1,000-9,000 cfu/ml Insignificant growth COVID-19 PCR [[id number]] Collected: 08/15/22 1150 Lab Status: Final result Specimen: Nasopharyngeal Swab Updated: 08/15/22 1501 SARS-CoV-2 RNA PCR Not Detected Comment: This result should be interpreted in combination with the clinical observations, patient history and epidemiological information. For testing of asymptomatic individuals, assay performance characteristics and clinical utility have not been evaluated. Testing for SARS-CoV-2 (Severe acute respiratory syndrome coronavirus 2, formerly known as 2019 novel coronavirus or 2019-nCoV) to aid in the diagnosis of COVID-19 is performed using the Simplexa COVID-19 Direct Assay by [employer] as authorized by the FDA issued Emergency Use Authorization (EUA). This assay is intended for In-vitro Diagnostic (IVD) use with nasopharyngeal swabs collected from individuals meeting the CDC criteria for testing. The assay is performed based on the instructions for use and additional guidance provided by the FDA. Testing is performed in the Microbiology Laboratory within the Department of Pathology and Laboratory Medicine at [facility], certified under the Clinical Laboratory Improvement Amendments of 1988 (CLIA), 42 U.S.C. section 263a, to perform high complexity tests. Assay performance has been verified according to clinical laboratory regulatory requirements. Test results are provided above. A result of Not Detected indicates that the viral RNA target is not present but does not preclude SARS-CoV-2 infection. False negative results may occur if a specimen is improperly collected, transported or handled; if amplification inhibitors are present; or if inadequate numbers of viral particles are present in the specimen. A result of Detected suggests a current or recent infection and the patient is presumed to be infected. Positive and negative predictive values for this test are highly dependent on disease prevalence. A result of Invalid indicates the inability to conclusively determine the presence or absence of SARS-CoV-2 RNA in the sample which can be due to a variety of factors. Recollection is recommended in the case of an invalid result. CDC COVID-19 criteria for testing on human specimens and clinical management guidance information are available at the CDC Coronavirus Disease 2019 (COVID-19) webpage under Information for Healthcare Professionals (https://www.cdc.gov/coronavirus/2019-ncov/hcp/index.html). 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 MRSA PCR Screen ([facility]/CG/APD/NL) [[id number]] Collected: 08/15/22 0050 Lab Status: Final result Specimen: Nasopharyngeal Swab Updated: 08/17/22 1419 MRSA Result Negative MRSA Interp -- Methicillin-resistant Staphylococcus aureus (MRSA) is NOT DETECTED The MRSA target DNA sequences (mec and SCC) were not detected within the acceptable ranges using the Xpert MRSA NxG on the GeneXpert Dx System ([employer]). This suggests the absence of MRSA in the patient specimen submitted for testing. This test is cleared by the U.S. Food and Drug Administration for clinical use and its performance characteristics have been verified by the Clinical Gen[facility] Laboratory at [facility]. This result does not rule out the presence of any other organisms. Rare false negative results may occur if MRSA is present at low concentrations with much higher concentrations of other organisms including MRSE or S. aureus with an empty SCC cassette. Comment: [VERIFIED DATE]08.17.22 Verified By:Shannon Smiley (Electronic Signature) Blood culture [[id number]] Collected: 08/14/22 2353 Lab Status: Final result Specimen: Blood Updated: 08/20/22 07 Blood Culture No growth at 5 days. Imaging/Diagnostics: Results for orders placed or performed during the hospital encounter of 08/14/22 XR Chest One View (Exam End: 08/15/2022 1:00 AM) Impression FINDINGS/IMPRESSION: * Moderate pulmonary edema. * No confluent airspace opacity otherwise seen. * Cannot exclude small pleural effusions. * Cardiomediastinal contours appear within normal limits. * Endotracheal tube tip projects 3.8 cm above the consuelo. * RIGHT neck central catheter, distal catheter coiled over the region of the RIGHT ventricle and pulmonary trunk. Thank you for letting us participate in the care of this patient. If you are a health care provider and have any questions regarding this report, please contact the number below. For patients who have questions please contact the health acute care physician that requested your imaging first. Abdomen 1 view (Generic) (Exam End: 08/15/2022 8:33 AM) Impression The enteric tube sidehole is not definitively subdiaphragmatic. Recommend advancement. Preliminary report signed by: Carlos Wolff at 08/15/2022 9:00 AM I have personally reviewed the image(s) and the resident's interpretation and agree with the findings, Liliane Adams MD at 08/15/2022 9:05 AM Thank you for letting us participate in the care of this patient. If you are a health care provider and have any questions regarding this report, please contact the number below. For patients who have questions please contact the health acute care physician that requested your imaging first. Electronically signed by: Liliane Adams MD, [facility] ([phone]), at 08/15/2022 9:05 AM XR Chest One View (Exam End: 08/15/2022 1:14 AM) Impression FINDINGS/IMPRESSION: * RIGHT neck central catheter redemonstrated terminating over the region of the pulmonary trunk, now uncoiled distally although the tip is looped. * Moderate pulmonary edema redemonstrated. * ET tube projects similar. Thank you for letting us participate in the care of this patient. If you are a health care provider and have any questions regarding this report, please contact the number below. For patients who have questions please contact the health acute care physician that requested your imaging first. Abdomen 1 view (Generic) (Exam End: 08/15/2022 6:38 AM) Impression Nonspecific/nondiagnostic appearance of the abdomen, with large stool burden in the RIGHT hemiabdomen and pelvis. Thank you for letting us participate in the care of this patient. If you are a health care provider and have any questions regarding this report, please contact the number below. For patients who have questions please contact the health acute care physician that requested your imaging first. Chest One View (Exam End: 08/16/2022 10:31 AM) Impression PA catheter has a persistent loop near the tip, similar to the prior comparison study. Improved pulmonary edema. Thank you for letting us participate in the care of this patient. If you are a health care provider and have any questions regarding this report, please contact the number below. For patients who have questions please contact the health acute care physician that requested your imaging first. Electronically signed by: Alfonso Adams MD, [facility] ([phone]), at 08/16/2022 10:[address] Head wo Contrast (Generic) (Exam End: 08/16/2022 10:44 PM) Impression No acute intracranial abnormality and no change from prior Thank you for letting us participate in the care of this patient. If you are a health care provider and have any questions regarding this report, please contact the number below. For patients who have questions please contact the health acute care physician that requested your imaging first. Electronically signed by: Moustapha Correa MD, [facility] ([phone]), at 08/16/2022 11:19 PM XR Abdomen 1 view (Generic) (Exam End: 08/17/2022 12:09 PM) Impression Status post Dobbhoff tube placement with catheter tip terminating at the approximate position of greater curvature. I have personally reviewed the image(s) and the resident's interpretation and agree with the findings, Jenn Pina MD at 08/17/2022 2:31 PM Thank you for letting us participate in the care of this patient. If you are a health care provider and have any questions regarding this report, please contact the number below. For patients who have questions please contact the health acute care physician that requested your imaging first. Head wo Contrast (Generic) (Exam End: 08/18/2022 3:14 PM) Impression No acute intracranial process. Thank you for letting us participate in the care of this patient. If you are a health care provider and have any questions regarding this report, please contact the number below. For patients who have questions please contact the health acute care physician that requested your imaging first. Electronically signed by: Antonio Jordan MD, [facility] ([phone]), at 08/18/2022 3:18 PM XR Chest One View (Exam End: 08/19/2022 12:30 PM) Impression 1. Increased bibasilar airspace opacities compared to radiograph 08/16/2022, concerning for an infectious/inflammatory process. A component of edema not excluded. 2. Overall decreased pulmonary edema. I have personally reviewed the image(s) and the resident's interpretation and agree with the findings, Alan De Guzman MD at 08/19/2022 3:14 PM Thank you for letting us participate in the care of this patient. If you are a health care provider and have any questions regarding this report, please contact the number below. For patients who have questions please contact the health acute care physician that requested your imaging first. Electronically signed by: Alan De Guzman MD, [facility] ([phone]), at 08/19/2022 3:14 PM MRI Brain wo Contrast (Exam End: 08/19/2022 10:15 PM) Impression No acute infarction, mass or mass effect. Thank you for letting us participate in the care of this patient. If you are a health care provider and have any questions regarding this report, please contact the number below. For patients who have questions please contact the health acute care physician that requested your imaging first. Chest for Verifying Vascular Access PICC Placement At Bedside (Exam End: 08/19/2022 4:36 PM) Impression PICC tip is in the superior vena cava above the right atrium. Thank you for letting us participate in the care of this patient. If you are a health care provider and have any questions regarding this report, please contact the number below. For patients who have questions please contact the health acute care physician that requested your imaging first. Electronically signed by: Alan De Guzman MD, [facility] ([phone]), at 08/19/2022 4:[address] Hip w Contrast Left (Exam End: 08/20/2022 11:04 PM) Impression 1. Uncomplicated left femoral neck ORIF with unchanged postoperative alignment. 2. Moderate skin thickening and subcutaneous stranding about the lateral left hip with lateral left thigh intramuscular edema and fascial thickening. These findings are nonspecific and may be seen in the routine postoperative setting. Underlying soft tissue infection with infectious or inflammatory myositis may also have this appearance. Correlation with physical examination, clinical symptoms, and laboratory findings is recommended. 3. 2.3 x 1.6 x 1.8 cm focus of more coalescent fluid attenuation centered in the subcutaneous fat of the posterolateral thigh roughly at the level of the proximal femoral fixation screw heads. There is no rim-enhancing to suggest a mature, organized abscess at this time. However, this finding could represent phlegmon in appropriate clinical context, or it could represent a postsurgical collection, the contents of which may be sterile or infected. 4. There is a rectal tube in place. However, there remains a large stool ball in the rectum with free fluid versus coalescent edema on both the anterior and posterior margins of the distended rectum. In appropriate clinical context, these findings could represent proctocolitis or stercoral colitis. I have personally reviewed the image(s) and the resident's interpretation and agree with the findings, Aicha Chowdhury MD at 08/21/2022 9:34 AM Thank you for letting us participate in the care of this patient. If you are a health care provider and have any questions regarding this report, please contact the number below. For patients who have questions please contact the health acute care physician that requested your imaging first. Electronically signed by: Aicha Chowdhury MD, [facility] ([phone]), at 08/21/2022 9:[address] Chest w Contrast (Exam End: 08/20/2022 11:04 PM) Impression 1. Multifocal lower lobe predominant consolidative opacities with additional upper lobe opacities consistent with multifocal pneumonia. Compared to the prior CT of 08/12/2022 the number and size of the opacities has decreased. Recommend follow-up imaging in 3-6 months to document complete resolution. 2. New small, sub-1 cm early cavitation of multiple opacities predominantly within the posterior left upper lobe and left lower lobe. 3. New curvilinear splenic lesions could represent infarct versus late arterial phase splenic arterial opacification. Thank you for letting us participate in the care of this patient. If you are a health care provider and have any questions regarding this report, please contact the number below. For patients who have questions please contact the health acute care physician that requested your imaging first. Hip 2-3 Views Left (Exam End: 08/22/2022 12:19 AM) Impression No radiographic evidence of infection. Thank you for letting us participate in the care of this patient. If you are a health care provider and have any questions regarding this report, please contact the number below. For patients who have questions please contact the health acute care physician that requested your imaging first. Electronically signed by: Viktor Cervantes MD, [facility] ([phone]), at 08/22/2022 12:43 PM XR Pelvis (Generic) (Exam End: 08/22/2022 12:19 AM) Impression No radiographic evidence of infection status post left hip ORIF. Thank you for letting us participate in the care of this patient. If you are a health care provider and have any questions regarding this report, please contact the number below. For patients who have questions please contact the health acute care physician that requested your imaging first. Electronically signed by: Richard Billings MD, [facility] ([phone]), at 08/22/2022 10:[address] Angiogram Coronary Arteries (Exam End: 08/27/2022 8:58 AM) Impression Coronary calcium score of 0, consistent with no detectable calcified atherosclerotic plaque burden. No evidence of stenosing soft plaque on the coronary CT arteriogram. CAD RADS 0 Ongoing bilateral pulmonary infectious/inflammatory changes with persistent consolidative opacity especially in the left lower lobe. This could represent a multifocal pneumonia. Recommend follow-up CT in 3 months to assess for resolution. Thank you for letting us participate in the care of this patient. If you are a health care provider and have any questions regarding this report, please contact the number below. For patients who have questions please contact the health acute care physician that requested your imaging first. Electronically signed by: Arlette Mays MD, [facility] ([phone]), at 08/27/2022 11:[address] Chest wo Contrast (Generic) (Exam End: 08/27/2022 8:58 AM) Impression Stable findings of multifocal pneumonia. No interval abnormality. Thank you for letting us participate in the care of this patient. If you are a health care provider and have any questions regarding this report, please contact the number below. For patients who have questions please contact the health acute care physician that requested your imaging first. Electronically signed by: MINH QUIROGA MD, [facility] ([phone]), at 08/27/2022 10:48 AM XR Fluoro Barium Swallow (Modified/Video Swallow Pharynx) (Exam End: 08/31/2022 11:23 AM) Impression Abnormal modified barium swallow as above. Please see speech pathology report for further discussion. Thank you for letting us participate in the care of this patient. If you are a health care provider and have any questions regarding this report, please contact the number below. For patients who have questions please contact the health acute care physician that requested your imaging first. Electronically signed by: Aron Billings MD, [facility] ([phone]), at 08/31/2022 12:02 PM Medications: Scheduled: ??? melatonin 6 mg Oral Nightly ??? insulin glargine (Lantus;Semglee) (100 unit/mL) subcutaneous injection 14 Units Subcutaneous Daily ??? buPROPion 100 mg Per NG tube Daily ??? insulin lispro protamine-insulin lispro 75/25 33 Units Subcutaneous Daily ??? miconazole nitrate Topical (Top) BID ??? metoproloL tartrate 12.5 mg Oral 2 times per day ??? sacubitriL-valsartan 1 tablet Oral BID ??? empagliflozin 10 mg Oral Daily ??? valproic acid 300 mg Per NG tube Q6H ??? QUEtiapine 100 mg Oral Nightly ??? lidocaine 3 patch Transdermal Q24H ??? insulin lispro 1-5 Units Subcutaneous Q4H LAZARUS ??? ergocalciferoL (vitamin D2) 50,000 Units Per NG tube Weekly ??? enoxaparin 40 mg Subcutaneous Daily ??? atorvastatin 80 mg Per NG tube QPM ??? folic acid 1,000 mcg Per NG tube Daily ??? ferrous sulfate 300 mg Per NG tube Every Other Day ??? chlorhexidine 15 mL Oral BID ??? pantoprazole 40 mg Intravenous BID ??? sodium chloride 0.9 % (flush) 5 mL Intravenous BID ??? acetaminophen 1,000 mg Oral Q8H LAZARUS ??? thiamine 100 mg Intravenous Daily Continuous: ??? tube feeding diet 1,320 mL (09/03/22 1626) PRN: ondansetron, iohexoL, polyethylene glycoL, senna, bisacodyL, potassium chloride in water OR potassium chloride in water OR potassium chloride in water, sodium chloride 0.9 % (flush), lidocaine, nitroGLYcerin, glucose 40% oral geL OR dextrose 10% OR glucagon ASSESSMENT and PLAN: Ishan Irving is a 62 y.o. female w/ PMH of L femoral neck fracture (s/p fixation early August),??bipolar disorder, resolving medication-induced Parkinsonism, insulin-dependent diabetes mellitus,??hx of alcohol use disorder (reported to be in remission for 1.5 years) c/b chronic pancreatitis,iron deficiency anemia,??GERD??c/b??esophagitis &??Farrell's esophagus, who was admitted to [facility] on 08/14/2022 (now on Hospital Day #21) for mixed shock with concern for stress cardiomyopathy (Takotsubo Cardiomyopathy) suspected to have been secondary to large volume aspiration from worsening dysphagia leading to aspiration pneumonia/pneumonitis. 09/04: Patient appears moderately fatigued today but otherwise continues to demonstrate marked improvementversus several days ago in her mood and level of interactivity. MBS today following removal of dobhoff with hopes that patient can tolerate some degree of PO intake and stave off requirement for a per cutaneous feeding tube. Otherwise plan to continue current medication regimen including newly addedbupropion. Today's plan: - MBS today - Continue therapy with PT, OT, and GAS STATION SUPERVISOR - Diet pending MBS results milvia Neuro: # Bipolar Disorder - Depakote 300 mg oral liquid per Dobhoff tube q6hr. - Continue Seroquel 100mg nightly - Will check VPA trough level 08/29. 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 - Psychiatry Consult, appreciate recs, recommended starting wellbutrin - Started Wellbutrin 100mg IR as other formulations cannot be crushed ?? Pulmonary: # Acute hypoxic respiratory failure, resolved. # Bilateral airspace opacities/multifocal pneumonia -??Respiratory support with LFNC PRN; currently on RA - Antibiotics: zosyn for pneumonia, stopped per ID - Fungitell and Fungal Cx positive, no change in management at this time per ID - CT Chest showed persistent pneumonia; ID followed, patient completed course of antibioitics ?? Cardiac: # Distributive Shock # NSTEMI Type I vs Type II # HFrEF (EF 25%) # C/f Stress Cardiomyopathy - Will not perform LHC given results of CTA coronary arteries. - ASA 81mg, Plavix 75mg, stopped today given low suspicion for CAD. - initially Losartan 25mg daily, now on entresto - Metoprolol 25mg daily, starting 08/30 as tartrate for Dobhoff - Spironolactone 12.5mg QD (held starting 08/30 in setting of NPO status) - Start entresto 24-26mg as part of GDT - Start empagliflozin 10mg as part of GDT - Continue Lovenox - Mg >1, K >4 ?? GI: # GERD c/b Farrell's esophagus & esophagitis # Constipation- resolved # Rectal wall edema 2/2 stool ball - Has Miralax, senna, dulcolax PRN ordered - Continue home pantoprazole 40 BID ?? Endocrine: # Insulin-dependent diabetes -??Diabetes Management consulted, appreciate recs - Continue Glargine 23u daily UNTIL 08/31 - hypoglycemic in AM intermittently, changed to 20u 08/31 -??Humalog 75/25 30 units before tube feeds. - Moderate SSI ?? Hematology/oncology: # Mixed JERRICA and ACD - Oral iron supplementation started 08/21. - Ferritin, Iron, TIBC resulted; mixed picture - Transfuse for Hb <8 - S/p 1u pRBC 08/22 ?? Infectious disease:?? # Septic shock # Bilateral airspace opacities/multifocal pneumonia # L Hip Fluid Collection # Subcentimeter left posterior upper lobe cavitary lesions - Infectious work-up initially did not yield any clear causative organisms - S/p BAL 08/21 without any growth to date. - IR, orthopedic surgery consulted for evaluation of L hip fluid collection. No intervention/drainable target. - Stopped zosyn as per ID (08/14- 08/23) - Fungal testing positive no change in management at this time per ID #Housekeeping: DVT PPx: LMWH SCD GI PPx: Diet: NPO diet (Give Meds) Lines: PICC Line - Double Lumen 08/19/22 1655 basilic vein (medial side of arm), right 5 Fr (Active) Number of days: 15 D/c planning: TBD pending clinical course Code status: Attempt Cardiopulmonary Resuscitation - Inpatient Irwin Jones MD Internal Medicine PGY1 Medicine Team: Jose Juan, Pager #[phone] Date: 09/04/2022 Associated attestation - Tenisha Sandy MD - 09/04/2022 9:35 PM EDT Attending Attestation and Certification Please see Irwin Jones MD's note for details of the patient history of presentation and data. I have discussed, reviewed and agree with the documented History, Physical findings, Assessment and Plan of care. I have examined the patient myself and personally reviewed all studies. In addition, I certify thatI am a [facility] credentialed attending provider with admitting privileges and that the patient meets or has met medical necessity to require an inpatient IPI level of care meeting a minimum of two midnights or is on the [facility] inpatient only procedure list (status C) due to: acute metabolic encephalopathy,management of nstemi/stress cardiomyopathy, s/p treatment of sepsis. Also management of IV fluids as patient is not able to tolerate any PO intake. MBS showed some improvement in swallowing, but still unsafe for any consistency. She is awaiting a PEG tube which cannot occur until Wednesday. She will have an NG tube until that time for med management. Overall mental status is improved with use of wellbutrin. Will continue GAS STATION SUPERVISOR and consider trial ofnectar thick with speech. * Alicia Cook, OT - 09/03/2022 1:40 PM EDT Occupational Therapy Treatment Note Treatment Number OT: 4 Patient Dx: Ishan Irving is a 62 y.o. female admitted on 08/14/2022 with a medical history notable for??recent L femoral neck fracture,??bipolar disorder, resolving medication-induced Parkinsonism, insulin-dependent diabetes mellitus,??hx of alcohol use disorder (reported to be in remission for 1.5 years) c/b chronic pancreatitis, iron deficiency anemia,??GERD??c/b??esophagitis &??Farrell's esophagus??presenting in transfer from [facility], suspected to be in cardiogenic shock and found to be in mixed shock with concern for stress cardiomyopathy. She is s/p ORIF left femoral neck fracture. Precautions/Special Considerations: aspiration, skin breakdown, falls, LLE WBAT, Dobhoff tube, Mcrae Interval History: NAEON. Intermittently disoriented, but stable overnight. S: My three goals are to get this feeding tube out, go to rehab, and then go home O: Patient seen for skilled OT treatment, and demonstrated the following: ?? Pt in bed upon OT arrival. Agrees to get OOB to [facility]. ?? States she has a fungal infection. Skin at gavin-area inspected. Pt red in gavin-area and has yunior buttocks. Nurse aware. ?? Supine to sit at EOB under supervision with HOB elevated to 45* for aspiration precautions ?? Independent sitting balance at EOB ?? Donned both slipper socks independently with legs on bed ?? [facility] brought bedside bed for stand pivot transfer. ?? Sit to stand from bed (low position) with min A of 2. Sat down immediately. Pt yelling, my feetare slipping. Pt reassured fit are firmly on floor. ?? Sit to stand again with min A of 2 at FWW. Cues for postural correction. Good balance with device and CG. ?? Min A to navigate with FWW for stand-step transfer to [facility]. I need to sit. I'm going to fall? Pt sat on commode quickly. ?? Sit to stand attempted twice from [facility]. Pt immediately sitting out of fear. ?? Discussed pt's fear of falling and recent accomplishments in terms of mobility. 1:1 provided. Pttearful. ?? Set up for oral hygiene. Declined to bathe or brush/wash hair. ?? Pt participated in UE ther ex with yellow t-band. 6-8 reps for triceps, biceps, lat pull-downs ?? Stand-step transfer back to bed with Min A of 2. ?? Stood and side stepped to HOB ?? Dependent to scoot up in bed ?? Min A for gavin-hygiene in bed. OT applied anti-fungal cream to gavin-area. ?? Cognition: ?? Behavior / Mood: alert, cooperative and flat affect ?? Alert and oriented to: person, place, time and situation ?? Follows commands: 1 step, 100% of the time and requires increased time ?? Attention: WFL ?? Safety awareness: WFL, aware of L femur Fx ?? Vision: Glasses have been brought in by spouse; wears corrective lenses at all times ?? Endurance: Poor ?? Vitals: VSS Pain: Denies Education: Pt/family/caregiver education ongoing regarding: ADL, Exercise, Positioning, Recommendations and Discharge planning. Staff Communication: Patient status, treatment, and mobility recommendations discussed with nursing/other staff. Pt aware of need to urinate. ASSESSMENT: Pt more engaged in session. Able to verbalize clear and appropriate goals. Capable of transferring OOB to commode with min A of 2 but is limited by fear of falling. Anticipate this will resolve with continued exposure/practice. Participated in UE strengthening exercises. Pt is far belowpre-hospital status for mobility and ADLs and is an excellent rehab candidate. An acute rehab stay r emains appropriate for a discharge plan. Equipment needs at discharge: to be determined Anticipated Discharge Disposition: acute rehabilitation facility Daily schedule / Staff Recommendations: ? ? Encourage use of coping & calming strategies ??? Give choices when possible to support feelings of autonomy ? ? Frequent orientation verbally & visually with calendars/clocks/whiteboard ? ? Keep glasses, hearing aides, etc within reach & offer to pt as appropriate ??? Facilitate a normal sleep-wake cycle ??? Provide brief, clear instruction and direction from one source at a time ??? Provide calming music, favorite TV programs, magazines or newspapers ??? Utilize upright chair position using bed features or transfer to recliner chair as appropriate with mechanical lift ??? Encourage participation in ADL's by providing set up A on tray table and physical assist only as needed Occupational Therapy Goals: To be achieved by 09/08/22: ?? Patient will complete toileting tasks (hygiene, clothing management, transfers) with Mod A and withAE, as needed Patient will ambulate household distances with Mod A and with AD, as needed Goal met Patient will complete UB/LB sponge bathing tasks with Min A, while seated with AE, as needed Patient will complete grooming task (comb hair, brush teeth) with supervision, seated EOB Goal met Therapy Frequency (OT): 2-4 times/wk Total Minutes, Occupational Therapy: 44 ([phone] 3 TA) Pager: [phone] Alicia Cook OT 09/03/2022 Occupational Therapy Rehabilitation Department * Shashi Young - 09/03/2022 10:36 AM EDT Marketing Automation Analyst Encounter Note Patient Name: Ishan rIving : [id number] MR#: [id number] Admit Date: 08/14/2022 11:11 PM Hospital Day 20 days Narrative: A response to a referral from patient's nurse/A follow up visit to patient. Patient's nurse saw me trying to visit a patient in room 450 and told me to visit room 453 also. Assessment: Patient is awake, alert and oriented. I visited patient in the presence of her Antonio. Patient and her Antonio are very friendly and receptive. Patient looks bright and cheerful. Patient is feeling good. Patient's Antonio says, patient did 15 steps around the loop today. Patient is looking forward to removing the tube in her nose. Patient wants prayer. Intervention and Outcome: I offered patient Pastoral presence, Empathetic listening, Spiritual/Emotional support and encouragement. I brought to patient and her Antonio peace, comfort, compassion and consolation. Patient's shared patient's progress so far and patient expressed her goal of expecting the removal of the tube in her nose. I prayed with patient and her Antonio holding hands. Patient and her expressed appreciation. Follow-up: It Quality Analyst will continue to offer support to patient as needed. Time in Direct Care: Nydia Young 09/03/2022 * Nancy Ernst RD - 09/03/2022 8:27 AM EDT Nutrition Progress Note Ishan Irving is a 62 y.o.??female??with h/o bipolar, DM, EtOH, esophagitis, who presented to [facility] 3 days ago after being found unresponsive at home.?Patient found to have likely pneumonia +/- aspiration, newly reduced EF. Reason for Assessment: Follow-up, Tube Feeding Nutrition Recommendations: Enteral Nutrition: Cyclic Peptamen AF at 110ml/hr for 12hrs from 2404-8121 At goal, this will provide: Peptamen AF Total Volume Per Day: 1320 mL Scoops of Protein: 0 Calories per Day: 1584 Protein per Day: 100 g Free Water mL per Day: 1072 % RDI: 106 % Monitor hydration status on above TFs as they are concentrated. Pt may need additional fluids depending on IVFs, med flushes, p.o. Intake, etc. Diet per GAS STATION SUPERVISOR Monitor weight to trend Monitor BM. Goal of one every 24-48hrs while on EN Monitor lytes. Replete as indicated I was able to discuss plan with provider Medicine Jose Juan Jones MD. Current Nutrition Regimen: Active Orders Diet Sips and Chips (Give Meds) Frequency: Effective Now Number of Occurrences: Until Specified All Active TF Orders: Tubefeeding Orders (From admission, onward) Start Dose/Rate Route Frequency Ordered Stop 08/31/22 1745 tube feeding diet 1,320 mL 110 mL/hr Per NG tube Cyclic-(Tube feed) 08/31/22 1651 Cyclic Peptamen AF at 110ml/hr for 12hrs from 6066-0126 Average tube feeding provision over past 3 days; 1117mL vs daily goal volume of 1176 formula (95% of goal) Tolerance or barriers to meeting needs: tolerating so far Assessment: Lab Results Component Value Date NA 138 09/03/2022 K 4.1 09/03/2022 CL 102 09/03/2022 CO2 29 09/03/2022 BUN 28 (H) 09/03/2022 CREATININE 0.49 (L) 09/03/2022 ESTGFR 106 09/03/2022 MAGNESIUM 0.96 09/03/2022 CALCIUM 9.2 09/03/2022 PHOS 3.4 09/03/2022 AST 39 (H) 08/20/2022 ALT 20 08/20/2022 ALKPHOS 213 (H) 08/20/2022 BILITOT <0.2 (L) 08/20/2022 BILIDIR 0.1 08/20/2022 TRIG 127 08/29/2022 CRP 19.4 (H) 08/21/2022 HA1C 6.2 (H) 08/15/2022 25OHVITD 12 (L) 08/24/2022 IRON 25 (L) 08/21/2022 Lab Results Component Value Date POCGLU 173 09/03/2022 POCGLU 91 09/03/2022 POCGLU 106 09/02/2022 POCGLU 107 09/02/2022 POCGLU 183 09/02/2022 POCGLU 194 09/02/2022 Patient Lines/Drains/Airways Status Active Nutritional LDAs Name Placement date Placement time Site Days Naso/Oral Tube 08/17/22 1142 small bore weighted (Dobhoff) right nostril 08/17/22 1142 right nostril 17 PICC Line - Double Lumen 08/19/22 1655 basilic vein (medial side of arm), right 5 Fr 08/19/22 1655 -- 15 External Catheter 08/23/22 1100 08/23/22 1100 -- 11 Physical Findings Gastrointestinal: feeding tube Oxygen Therapy / Airway Device: None (Room air) Shift Pressure Injury Prevention Occiput: No Injury Thoracic Spine: No Injury Sacral: Redness, Blanchable Ischial - left: No Injury Ischial - right: No Injury Heel - left: No Injury Heel - right: No Injury Elbow - left: No Injury Elbow - right: No Injury Device Sites: O2 sat monitor, ECG Leads, BP Cuff Other Sites: ID band Last Bowel Movement: 09/02/22 Intake/Output Summary (Last 24 hours) at 09/03/2022 0827 Last data filed at 09/03/2022 0602 Gross per 24 hour Intake 1870 ml Output 925 ml Net 945 ml Relevant medications: jardiance, lovenox, Vit D2, ferrous sulfate, folic acid, glargine, lispro, protonix, thamine, others noted Anthropometrics: Admit Weight: 69 kg Estimated body mass index is 30.08 kg/m?? as calculated from the following: Height as of 08/19/22: 152.4 cm (5'). Weight as of this encounter: 69.9 kg (154 lb). [place] Body Weight (IBW) (kg): 45.45 Usual Body Weight: 70.3 kg (155 lb) Wt Readings from Last 10 Encounters: 09/03/22 69.9 kg (154 lb) 08/19/22 73.1 kg (161 lb 2.5 oz) 07/03/22 69.9 kg (154 lb) 03/31/22 74.4 kg (164 lb) 02/12/22 78.7 kg (173 lb 9.6 oz) 09/23/21 78.5 kg (173 lb) 03/01/20 79.4 kg (175 lb) 11/22/18 80.3 kg (177 lb) 12/13/14 86.5 kg (190 lb 12.8 oz) 03/20/14 94 kg (207 lb 3.7 oz) Patient Vitals for the past 168 hrs: Weight 09/03/22 0600 69.9 kg (154 lb) 09/02/22 0550 70.1 kg (154 lb 8 oz) 09/01/22 0600 68.1 kg (150 lb 3.2 oz) 08/31/22 0600 67.7 kg (149 lb 4.8 oz) 08/30/22 0600 67.8 kg (149 lb 6.4 oz) 08/29/22 0451 70.4 kg (155 lb 3.2 oz) Weight Source: Bed Estimated / Assessed Needs: Fluid Requirements (mL/day): 2562 mL Olga Kcal / K - 1737.5 Kcal (20 Kcal/Kg - 25 Kcal/Kg) Estimated Protein Needs: 83.4 - 104.25 g (1.2 g/Kg - 1.5 g/Kg) Nutrition intake and intake history / interview: 09/03: Second MBS scheduled for Wednesday. Pending results will transition to oral diet or to a standard formula. Wt stable and tolerating formula so far. 08/31: Pending MBS results diet will advance or will continue w/ TF. No intolerance noted and pt notcurrently experiencing hunger. Wt trending down, below admit wt and UBW, will increase TF provision. 08/27: Pt had 7 BM on 08/25 r/t liquid tylenol, d/c per this proposal lead writer's request as liquid tylenol acts as a purgative. BM have slowed and formed since then. Adjusted EN to allow for pt to lay flat at night and increased kcal as pt is now floor status. 08/24: Phos continues to trend low but above 2.0. Pt reports no feelings of hunger at this time, will continue EN at current rate. Wt trending down, but appears consistent w/ wts from 06/2022. Pt does have some wt loss since 02/2022 but is not clinically significant. Will continue to monitor. 08/21: Phos continues to trend low but above 2.0 today (2.4). More responsive than in previous days,but still intubated. Attempting SBT today. Wt relatively stable at this time. Had 1st BM since admit 08/20, will continue to monitor BM and consistency. If stool remain liquid should dc liquid tylenolas it can cause loose stools. 08/18: Phos <2.0 since 08/18 w/ 60mmol of repletion since then, phos 1.4 this AM. EN advanced to goal this AM w/o signs of intolerance. Wt up 4kg since admission and intermittently receiving diuretics, -0.5L since admission 08/17: TF recs as above. Nutrition Focused Physical Exam: Not performed Malnutrition Diagnosis: Not identified (Andrea, JPALISSA J Parenteral Enteral Nutr. 2011; 36(3): [phone]) Nutrition to continue to follow up while inpatient Nancy Ernst RD Pager #:[phone] * Petty Mccullough SLP - 09/03/2022 8:20 AM EDT Speech Therapy Note Patient Profile:??Ishan Irving is a 62 year old female with a medical history notable for??recent L femoral neck fracture,??bipolar disorder, resolving medication-induced Parkinsonism, insulin-dependent diabetes mellitus,??hx of alcohol use disorder (reported to be in remission for 1.5 years)c/b chronic pancreatitis, iron deficiency anemia,??GERD??c/b??esophagitis &??Farrell's esophagus??presenting in transfer from [facility]on 08/14/2022, suspected to be in cardiogenic shock and found to be in mixed shock with concern for stress cardiomyopathy.??[employer]PER[employer]OR following for swallow, cognitive tx. MBS completed 08/31/22 noting moderate-severe oropharyngeal dysphagia. ?? Lines/Drains: DHT(08/17/22), PICC Precautions: Fall risk, Aspiration risk, Delirium and High risk skin breakdown Continuous Interventions: ??? tube feeding diet 1,320 mL (09/03/22 0602) Interval History: Continues to demonstrate overall improvement with Wellbutrin. Discussed Pt with Dr. Jones and need for repeat MBS due to silent aspiration with purees on previous exam. In agreement for repeat MBS and to remove DHT prior to testing. Pt continues to improve with mental status/interactiveness per nursing, also physically improving needing less assistance for stand/pivot to chair today. Subjective: Pt resting in bed, uncomfortable, repositioned up to chair for session with nursing assist. Spouse Antonio at bedside. Objective: Pt seen for dysphagia management and demonstrated the following: Vital Signs During Session: WFL Pain: Denies once up in chair Respiratory Status: Room air Current Diet: Sips and Chips (Give Meds) Feeding / Oral Care Status: Pt requires cues and / or assistance Cognitive-Linguistic Status:Fully conscious, awake/alert. Still some delayed processing time/flat affect however this is significantly improving since my first session with Ishan on Wednesday 08/30. Command Following: Follows single step commands Positioning: Pt up to chair Oral / Laryngeal Mechanism Clinical Assessment: Unchanged from previous session. Bolus Presentation(s) ?? Ice chips x1 ?? Thin liquid via cup (20 mL) ?? Puree (2 oz) Oral Preparatory Phase ?? Mastication: DNT hard solids ?? Oral Transit: Delayed/prolonged ?? Labial Seal / Loss: Good oral acceptance and No anterior loss ?? Oral Stasis: Trace, cleared spontaneously Pharyngeal Phase ?? Delay in swallow initiation suspected?: Yes 2-3 seconds per bolus ?? Vocal quality: Clear and No changes ?? Multiple Swallows per bolus: Yes x1-2 with purees ?? Cough / throat clear: Yes, report of globus sensation in lower throat/chest with delayed cough that brought up entire bolus of applesauce each time. Not noted with single controlled bites with break in between but consistently noted with consecutive + large bites of puree. ?? Pt. complaint of food getting stuck: Yes with purees ?? Fatigue across trials: Yes ?? Respiratory rate and respiratory swallow pattern: Increase in WOB after coughing episodes, otherwise WFL Esophageal Observations: ? If expectoration of applesauce bolus was 2/2 pharyngeal residue coughed up into oral cavity vs. Esophageal retention and eventual regurgitation. Will test more consecutive puree trials during MBS tomorrow to further evaluate source. Pt and spouse both note that coughing up solids to this degree is her swallow baseline for the lastyear. No significant weight loss (maybe a small amount per spouse), however eating was very difficulty and often resulted in Pt gagging or coughing foods back up. Reviewed images from first MBS with spouse who verbalized good understanding, all questions/concerns addressed. Discussed plan in detail with Pt who is in agreement with plan, nursing and physician updated. Assessment: Pt was seen today for a follow-up G[employer] SUPERVISOR visit. ??? Oropharyngeal swallow function is reportedly close to Pt's baseline this date: Characterized bycoughing/gagging and bringing up entire solid bolus with puree by spoon. ??? No desaturation or change in vital signs during coughing episodes, just slight increase in WOB.Pt confirms globus sensation in lower throat/upper chest and confirms it is effortful/uncomfortable. ??? These symptoms have not been noted previously in admission, suspect Pt's laryngeal/phrayngeal sensation is improving alongside Pt's ability to take more volume by mouth. ??? Repeat MBS tentatively scheduled for tomorrow, 09/04/22 at 1015 to further evaluate oropharyngeal swallow function and assist with decision making. Pt will benefit from continued therapeutic interventions to achieve therapy goals. Diagnosis: Oropharyngeal dysphagia, acute on chronic Recommendations: Diet:??NPO, May offer individual ice chips for pleasure / practice. *Consider long-term means of nutrition/hydration pending Pt/family wishes* PO medications:??IV or other alternative means only ?? Aspiration Precautions:? Excellent oral care? 1:1 assist with ice chips Speech Therapy Goals: Swallow: Pt will tolerate least restrictive diet without evidence of dysphagia / aspiration. Pt / caregiver will be independent with aspiration precautions, diet modifications, and ??safe swallowing strategies. Pt will demonstrate effortful swallows with good execution Pt will independently demonstrate lingual, labial, buccal, facial exercises with good execution Pt will maintain hydration / nutrition with optimal safety and efficiency.? Pt will participate in Modified Barium Swallow Study. ?? Delirium:?? Pt will improve orientation to x4 consistently with use of frequent re- orientations and visual aides in room as able. Pt will participate in simple reasoning and memory tasks to promote cognitive simulation and reducerisk of delirium Pt/caregivers will follow anti-delirium precautions independently with assist from??staff as needed Pt will participate in ongoing cognitive-linguistic evaluation. Plan: Therapy Frequency (G[employer] SUPERVISOR Eval): 3-5 times/wk Pt./family are in agreement with treatment plan. Total Minutes (Speech Language Pathology): 40 Petty Mccullough M.S., [facility]-[employer] SUPERVISOR Inpatient Speech-Pathology Pager: [phone] * Irwin Jones MD - 09/03/2022 7:13 AM EDT Images from the original note were not included. Inpatient Hospital Medicine Progress Note 09/03/2022 Patient Name: ISHAN IRVING Date of : 1960 Age: 62 y.o. Hospital Admit Date: 08/14/2022 Hospital Day: 20 Inpatient Attending: Tenisha Sandy MD PCP: Chris Stanley APRN ([phone]) No chief complaint on file. ID: Ishan Irving is a 62 y.o. 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.5 years) c/b chronic pancreatitis, iron deficiency anemia, ??GERD??c/b??esophagitis &??Farrell's esophagus, who was admitted to [facility] on 08/14/2022 (now on Hospital Day #20), and transferred to Hospital Medicine team from Cardiology on 08/30 for mixed shock with concern for stress cardiomyopathy (Takotsubo Cardiomyopathy). 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 is at bedside, tearful, notes he is joyous at the medrano change in her appearance. Patient otherwise denies pain, fevers, chills, myalgias, arthra lgias, and indicates that she would like to discharge home as soon as possible. OBJECTIVE: Vitals: Last value Range last 24 hrs Temperature Temp: 36.7 ??C (98.1 ??F) Temp: [36.5 ??C (97.7 ??F)-36.7 ??C (98.1 ??F)] Heart Rate Heart Rate: 81 Heart Rate: [71-87] Blood Pressure BP: 107/54 BP: (107-120)/(49-87) Art Line BP BP (Arterial Line): 111/70 BP (Arterial Line): -- MAP (NBP): [69 mmHg-95 mmHg] Respiratory Rate Resp: 14 Resp: [14-16] SpO2 SpO2: 94 % SpO2: [94 %-97 %] Oxygen Delivery Oxygen Therapy O2 Device: None (Room air) O2 Flow Rate (L/min): 3 L/min FiO2 (%): 21 % Reason for Oxygen: Patient currently on room air Intake/Output Summary (Last 24 hours) at 09/03/2022 0713 Last data filed at 09/03/2022 0602 Gross per 24 hour Intake 1870 ml Output 925 ml Net 945 ml I/O last 3 completed shifts: In: 2085 [I.V.:60; NG/GT:1816] Out: 1974 [Urine:1974] Last Bowel Movement: 09/02/22 Body mass index is 30.08 kg/m??. Patient Vitals for the past 168 hrs: Weight 09/03/22 0600 69.9 kg (154 lb) 09/02/22 0550 70.1 kg (154 lb 8 oz) 09/01/22 0600 68.1 kg (150 lb 3.2 oz) 08/31/22 0600 67.7 kg (149 lb 4.8 oz) 08/30/22 0600 67.8 kg (149 lb 6.4 oz) 08/29/22 0451 70.4 kg (155 lb 3.2 oz) Admit wt: 69 kg Physical Exam: GENERAL: Awake, moderately somnolent, no acute distress, dobhoff in place w/well-fitting bridle HEENT: Anicteric, no conjunctival injection CV: RRR, no murmurs/rubs/gallops, 2+ radial/DP pulses PULM: Normal respiratory effort, CTA with good air entry bilaterally, coarse bibasilar breath sounds improved versus yesterday ABDOMEN: Soft, non-tender, non-distended, no masses, no guarding EXTREMITIES: No lower extremity edema. No clubbing or cyanosis PSYCH/NEURO: flattened affect and intact cognition, no tremor, minimal cogwheeling UEs SKIN: Warm, dry, no rashes LABS: CBC: Recent Labs 09/03/22 00409/02/2210409/01/2220908/31/22 0430 08/30/22 0405 WBC 5.1 5.9 5.5 6.7 7.0 HGB 8.4* 8.3* 8.7* 8.7* 8.4* HCT 27.1* 27.7* 28.5* 29.2* 27.8* PLATELET 305 344 361* 330 407* NEUTROABS 2.19 2.83 2.52 4.03 4.26 Retic count yesterday: 2.2% (high normal), Retic hgb 22.9% (low), immature Retic 45% (very high), absolute 0.08 (normal range) Chemistry: Recent Labs 09/03/223909/02/2210409/01/220 08/30/22 0405 08/29/22 0930 NA 138 136 140 140 137 K 4.1 4.4 4.6 4.1 4.4 CL 102 100 104 104 103 CO2 29 30 29 28 25 BUN 28* 30* 29* 19* 19* CREATININE 0.49* 0.52* 0.51* 0.50* 0.47* GLUCOSE 107 114 86 133 289* ANIONGAP 7 6 7 8 9 Recent Labs 09/03/223909/02/2210409/01/220 08/31/22 0430 08/30/22 0405 08/29/22 0930 CALCIUM 9.2 9.5 9.4 -- 9.4 9.2 MAGNESIUM 0.96 0.87 0.94 0.81 0.90 0.81 PHOS 3.4 3.9 4.3 3.4 3.7 3.4 LFT's: Recent Labs 08/20/22 1400 08/15/22 0950 08/15/22 0305 BILITOT <0.2* <0.2* 0.2 BILIDIR 0.1 0.1 0.1 ALBUMIN 2.5* 2.4* 2.4* ALKPHOS 213* 102 99 ALT 20 12 13 AST 39* 21 25 Coags: No results for input(s): PT, INR, PTT, FIBRINOGEN, DDIMER in the last 168 hours. Invalid input(s): THROMBIN TIME No results for input(s): INR in the last 168 hours. Cardiac enzymes: Recent Labs 08/19/22 0120 08/14/22 2355 CK 32 -- PROBNP -- >35,000* Endocrine: Recent Labs 08/20/22 1400 08/15/22 0000 TSH 1.90 0.28 Recent Labs 08/15/22 0305 HA1C 6.2* CRP, Sed Rate Recent Labs 08/21/22 1200 CRP 19.4* SEDRATE >119* Lipids: Lab Results Component Value Date CHLPL 110 08/29/2022 HDL 34 08/29/2022 CHOLHDL 3.2 08/29/2022 TRIG 127 08/29/2022 LDLCHOL 51 08/29/2022 Heme: No results for input(s): LDH, HAPTOGLOBIN, URICACID in the last 168 hours. ABG (Arterial Blood Gas): No results found for: PHART, PO2ART, KFX1WFJ, RAJ1CNP VBG (Venous Blood Gas): No results for input(s): PHVEN, SPX2ODF, PO2VEN, AMM8PBO, BEVEN, TWS1DVS in the last 72 hours. EKG: Lab Results Component Value Date/Time DIAGLINE 09/01/2022223 Normal sinus rhythm T wave abnormality, consider inferior ischemia T wave abnormality, consider anterolateral ischemia Prolonged QT Abnormal ECG When compared with ECG of 16-AUG-2022 03:24, Criteria for Septal infarct are no longer Present T wave inversion less evident in Inferior leads Confirmed by MD Amada, Tae ([id number]) on 09/01/2022 4:28:11 PM QTCCALC 475 09/01/2022223 Vascular: No results found for: VBTEXTRPT Microbiology: Date Type Result Lab Results Component Value Date/Time URINECULTURE 1,000-9,000 cfu/ml Insignificant growth 08/15/2022 1225 Lab Results Component Value Date/Time GRAMSTAIN 08/21/2022 1650 Few Neutrophils seen No squamous epithelial cells seen No microorganisms seen. GRAMSTAIN 08/21/2022 1645 Moderate Neutrophils seen No squamous epithelial cells seen No microorganisms seen. GRAMSTAIN 08/19/2022 1451 Many Neutrophils seen Few squamous epithelial cells seen No microorganisms seen. LOWERRESPCX 08/21/2022 1650 Rare mixed bacterial morphotypes suggestive of normal upper respiratory wiley Lab Results Component Value Date/Time BLOODCX No growth at 5 days. 08/19/2022 1720 BLOODCX No growth at 5 days. 08/19/2022 1330 BLOODCX No growth at 5 days. 08/15/2022 0110 BLOODCX No growth at 5 days. 08/14/2022 2355 Microbiology Results (Last 30 days) Procedure Component Value Units Date/Time Lower Respiratory Culture Bronchial Alveolar Lavage [[id number]] Collected: 08/21/221649 Lab Status: Final result Specimen: Bronchial Alveolar Lavage Updated: 08/23/22 0741 Lower Respiratory Culture Rare mixed bacterial morphotypes suggestive of normal upper respiratory wiley Gram Stain -- Few Neutrophils seen No squamous epithelial cells seen No microorganisms seen. Fungus Culture & Calc Stain Bronchial Alveolar Lavage [[id number]] (Abnormal) Collected: 08/21/221649 Lab Status: Preliminary result Specimen: Bronchial Alveolar Lavage Updated: 08/24/22 145 AFB culture Bronchial Alveolar Lavage [[id number]] Collected: 08/21/221649 Lab Status: Preliminary result Specimen: Bronchial Alveolar Lavage Updated: 08/24/22 221 Acid Fast Bacilli Culture -- No Acid Fast Bacilli isolated to date If active tuberculosis is suspected, the patient should be on [employer] PRECAUTIONS. Call Infection Prevention for assistance if needed. Acid Fast Stain No Acid Fast Bacilli seen Fungus culture [[id number]] (Abnormal) Collected: 08/21/221649 Lab Status: Preliminary result Specimen: Bronchial Alveolar Lavage Updated: 08/24/221451 Fungus Culture Rare Jacky albicans Calcofluor White Stain [[id number]] Collected: 08/21/221649 Lab Status: Final result Specimen: Bronchial Alveolar Lavage Updated: 08/21/222015 Calcofluor Stain Calcofluor White Preparation: Negative Lower Respiratory Culture Bronchial Alveolar Lavage [[id number]] Collected: 08/21/22 164 Lab Status: Final result Specimen: Bronchial Alveolar Lavage Updated: 08/23/22 0741 Lower Respiratory Culture Rare mixed bacterial morphotypes suggestive of normal upper respiratory wiley Gram Stain -- Moderate Neutrophils seen No squamous epithelial cells seen No microorganisms seen. Fungus Culture & Calc Stain Bronchial Alveolar Lavage [[id number]] (Abnormal) Collected: 08/21/221644 Lab Status: Preliminary result Specimen: Bronchial Alveolar Lavage Updated: 08/24/22 145 AFB culture Bronchial Alveolar Lavage [[id number]] Collected: 08/21/221644 Lab Status: Preliminary result Specimen: Bronchial Alveolar Lavage Updated: 08/24/22 222 Acid Fast Bacilli Culture -- No Acid Fast Bacilli isolated to date If active tuberculosis is suspected, the patient should be on [employer] PRECAUTIONS. Call Infection Prevention for assistance if needed. Acid Fast Stain No Acid Fast Bacilli seen Fungus culture [[id number]] (Abnormal) Collected: 08/21/221644 Lab Status: Preliminary result Specimen: Bronchial Alveolar Lavage Updated: 08/24/22 1453 Fungus Culture Rare Jacky albicans Calcofluor White Stain [[id number]] Collected: 08/21/221644 Lab Status: Final result Specimen: Bronchial Alveolar Lavage Updated: 08/21/22 2017 Calcofluor Stain Calcofluor White Preparation: Negative Blood culture [[id number]] Collected: 08/19/22 1720 Lab Status: Final result Specimen: Blood Updated: 08/24/22 2301 Blood Culture No growth at 5 days. Lower Respiratory Culture Sputum Induced [[id number]] Collected: 08/19/22 1451 Lab Status: Final result Specimen: Sputum Induced Updated: 08/21/22 0948 Lower Respiratory Culture Rare mixed bacterial morphotypes suggestive of normal upper respiratory wiley Gram Stain -- Many Neutrophils seen Few squamous epithelial cells seen No microorganisms seen. Blood culture [[id number]] Collected: 08/19/22 1330 Lab Status: Final result Specimen: Blood Updated: 08/24/22 1501 Blood Culture No growth at 5 days. Legionella Urinary Antigen [[id number]] Collected: 08/18/22 1013 Lab Status: Final result Specimen: Urine Updated: 08/18/22 2252 Legionella Urinary Antigen Negative Comment: A negative Legionella Urinary Antigen by EIA suggests no recent or current infection with L. pneumophila Serogroup 1. Antigen may not be present in urine in early infection, and the level of antigen present in the urine may be below the detection limit of the test. Sensitivity: 95% Specificity 95%. Urine culture Indwelling Catheter Urine; Other; sepsis, bacteria on UA [[id number]] Collected: 08/15/22 1225 Lab Status: Final result Specimen: Indwelling Catheter Urine Updated: 08/16/22 0804 Urine Culture 1,000-9,000 cfu/ml Insignificant growth COVID-19 PCR [[id number]] Collected: 08/15/22 1150 Lab Status: Final result Specimen: Nasopharyngeal Swab Updated: 08/15/22 1501 SARS-CoV-2 RNA PCR Not Detected Comment: This result should be interpreted in combination with the clinical observations, patient history and epidemiological information. For testing of asymptomatic individuals, assay performance characteristics and clinical utility have not been evaluated. Testing for SARS-CoV-2 (Severe acute respiratory syndrome coronavirus 2, formerly known as 2019 novel coronavirus or 2019-nCoV) to aid in the diagnosis of COVID-19 is performed using the Simplexa COVID-19 Direct Assay by [employer] as authorized by the FDA issued Emergency Use Authorization (EUA). This assay is intended for In-vitro Diagnostic (IVD) use with nasopharyngeal swabs collected from individuals meeting the CDC criteria for testing. The assay is performed based on the instructions for use and additional guidance provided by the FDA. Testing is performed in the Microbiology Laboratory within the Department of Pathology and Laboratory Medicine at [facility], certified under the Clinical Laboratory Improvement Amendments of 1988 (CLIA), 42 U.S.C. section 263a, to perform high complexity tests. Assay performance has been verified according to clinical laboratory regulatory requirements. Test results are provided above. A result of Not Detected indicates that the viral RNA target is not present but does not preclude SARS-CoV-2 infection. False negative results may occur if a specimen is improperly collected, transported or handled; if amplification inhibitors are present; or if inadequate numbers of viral particles are present in the specimen. A result of Detected suggests a current or recent infection and the patient is presumed to be infected. Positive and negative predictive values for this test are highly dependent on disease prevalence. A result of Invalid indicates the inability to conclusively determine the presence or absence of SARS-CoV-2 RNA in the sample which can be due to a variety of factors. Recollection is recommended in the case of an invalid result. CDC COVID-19 criteria for testing on human specimens and clinical management guidance information are available at the CDC Coronavirus Disease 2019 (COVID-19) webpage under Information for Healthcare Professionals (https://www.cdc.gov/coronavirus/2019-ncov/hcp/index.html). Additional information about this and other EUA tests can be found in provider and patient fact sheets at the following FDA website: https://www.fda.gov/medical-devices/xgnfisfvrfj-zhdmcnd-1884-fimzl-15-oysvrwylt- okp-sayvyebhpylfnz-lyxsacd-devices/weowy-zunzrgqljic-horh SARS-CoV-2 Source PLANT SUPERVISOR Swab Lower Respiratory Culture Sputum Induced [[id number]] Collected: 08/15/22 0740 Lab Status: Final result Specimen: Sputum Induced Updated: 08/17/22 1015 Lower Respiratory Culture Rare normal upper respiratory wiley Gram Stain -- Many Neutrophils Few squamous epithelial cells Rare mixed bacterial morphotypes suggestive of normal upper respiratory wiley Blood culture [[id number]] Collected: 08/15/22 0110 Lab Status: Final result Specimen: Blood Updated: 08/20/22 0701 Blood Culture No growth at 5 days. MRSA PCR Screen ([facility]/CGP/APD/[place]) [[id number]] Collected: 08/15/22 0050 Lab Status: Final result Specimen: Nasopharyngeal Swab Updated: 08/17/22 1419 MRSA Result Negative MRSA Interp -- Methicillin-resistant Staphylococcus aureus (MRSA) is NOT DETECTED The MRSA target DNA sequences (mec and SCC) were not detected within the acceptable ranges using the Xpert MRSA NxG on the GeneXpert Dx System ([employer]). This suggests the absence of MRSA in the patient specimen submitted for testing. This test is cleared by the U.S. Food and Drug Administration for clinical use and its performance characteristics have been verified by the [facility] at [facility]. This result does not rule out the presence of any other organisms. Rare false negative results may occur if MRSA is present at low concentrations with much higher concentrations of other organisms including MRSE or S. aureus with an empty SCC cassette. Comment: [VERIFIED DATE]08.17.22 Verified By:Shannon Smiley (Electronic Signature) Blood culture [[id number]] Collected: 08/14/22 2351 Lab Status: Final result Specimen: Blood Updated: 08/20/22 0701 Blood Culture No growth at 5 days. Imaging/Diagnostics: Results for orders placed or performed during the hospital encounter of 08/14/22 XR Chest One View (Exam End: 08/15/2022 1:00 AM) Impression FINDINGS/IMPRESSION: * Moderate pulmonary edema. * No confluent airspace opacity otherwise seen. * Cannot exclude small pleural effusions. * Cardiomediastinal contours appear within normal limits. * Endotracheal tube tip projects 3.8 cm above the consuelo. * RIGHT neck central catheter, distal catheter coiled over the region of the RIGHT ventricle and pulmonary trunk. Thank you for letting us participate in the care of this patient. If you are a health care provider and have any questions regarding this report, please contact the number below. For patients who have questions please contact the health acute care physician that requested your imaging first. Abdomen 1 view (Generic) (Exam End: 08/15/2022 8:33 AM) Impression The enteric tube sidehole is not definitively subdiaphragmatic. Recommend advancement. Preliminary report signed by: Carlos Wolff at 08/15/2022 9:00 AM I have personally reviewed the image(s) and the resident's interpretation and agree with the findings, Liliane Adams MD at 08/15/2022 9:05 AM Thank you for letting us participate in the care of this patient. If you are a health care provider and have any questions regarding this report, please contact the number below. For patients who have questions please contact the health acute care physician that requested your imaging first. Electronically signed by: Liliane Adams MD, [facility] ([phone]), at 08/15/2022 9:05 AM XR Chest One View (Exam End: 08/15/2022 1:14 AM) Impression FINDINGS/IMPRESSION: * RIGHT neck central catheter redemonstrated terminating over the region of the pulmonary trunk, now uncoiled distally although the tip is looped. * Moderate pulmonary edema redemonstrated. * ET tube projects similar. Thank you for letting us participate in the care of this patient. If you are a health care provider and have any questions regarding this report, please contact the number below. For patients who have questions please contact the health acute care physician that requested your imaging first. Abdomen 1 view (Generic) (Exam End: 08/15/2022 6:38 AM) Impression Nonspecific/nondiagnostic appearance of the abdomen, with large stool burden in the RIGHT hemiabdomen and pelvis. Thank you for letting us participate in the care of this patient. If you are a health care provider and have any questions regarding this report, please contact the number below. For patients who have questions please contact the health acute care physician that requested your imaging first. Chest One View (Exam End: 08/16/2022 10:31 AM) Impression PA catheter has a persistent loop near the tip, similar to the prior comparison study. Improved pulmonary edema. Thank you for letting us participate in the care of this patient. If you are a health care provider and have any questions regarding this report, please contact the number below. For patients who have questions please contact the health acute care physician that requested your imaging first. Electronically signed by: Alfonso Adams MD, [facility] ([phone]), at 08/16/2022 10:[address] Head wo Contrast (Generic) (Exam End: 08/16/2022 10:44 PM) Impression No acute intracranial abnormality and no change from prior Thank you for letting us participate in the care of this patient. If you are a health care provider and have any questions regarding this report, please contact the number below. For patients who have questions please contact the health acute care physician that requested your imaging first. Electronically signed by: Moustapha Correa MD, [facility] ([phone]), at 08/16/2022 11:19 PM XR Abdomen 1 view (Generic) (Exam End: 08/17/2022 12:09 PM) Impression Status post Dobbhoff tube placement with catheter tip terminating at the approximate position of greater curvature. I have personally reviewed the image(s) and the resident's interpretation and agree with the findings, Jenn Pina MD at 08/17/2022 2:31 PM Thank you for letting us participate in the care of this patient. If you are a health care provider and have any questions regarding this report, please contact the number below. For patients who have questions please contact the health acute care physician that requested your imaging first. Head wo Contrast (Generic) (Exam End: 08/18/2022 3:14 PM) Impression No acute intracranial process. Thank you for letting us participate in the care of this patient. If you are a health care provider and have any questions regarding this report, please contact the number below. For patients who have questions please contact the health acute care physician that requested your imaging first. Electronically signed by: Antonio Jordan MD, [facility] ([phone]), at 08/18/2022 3:18 PM XR Chest One View (Exam End: 08/19/2022 12:30 PM) Impression 1. Increased bibasilar airspace opacities compared to radiograph 08/16/2022, concerning for an infectious/inflammatory process. A component of edema not excluded. 2. Overall decreased pulmonary edema. I have personally reviewed the image(s) and the resident's interpretation and agree with the findings, Alan De Guzman MD at 08/19/2022 3:14 PM Thank you for letting us participate in the care of this patient. If you are a health care provider and have any questions regarding this report, please contact the number below. For patients who have questions please contact the health acute care physician that requested your imaging first. Electronically signed by: Alan De Guzman MD, [facility] ([phone]), at 08/19/2022 3:14 PM MRI Brain wo Contrast (Exam End: 08/19/2022 10:15 PM) Impression No acute infarction, mass or mass effect. Thank you for letting us participate in the care of this patient. If you are a health care provider and have any questions regarding this report, please contact the number below. For patients who have questions please contact the health acute care physician that requested your imaging first. Chest for Verifying Vascular Access PICC Placement At Bedside (Exam End: 08/19/2022 4:36 PM) Impression PICC tip is in the superior vena cava above the right atrium. Thank you for letting us participate in the care of this patient. If you are a health care provider and have any questions regarding this report, please contact the number below. For patients who have questions please contact the health acute care physician that requested your imaging first. Electronically signed by: Alan De Guzman MD, [facility] ([phone]), at 08/19/2022 4:[address] Hip w Contrast Left (Exam End: 08/20/2022 11:04 PM) Impression 1. Uncomplicated left femoral neck ORIF with unchanged postoperative alignment. 2. Moderate skin thickening and subcutaneous stranding about the lateral left hip with lateral left thigh intramuscular edema and fascial thickening. These findings are nonspecific and may be seen in the routine postoperative setting. Underlying soft tissue infection with infectious or inflammatory myositis may also have this appearance. Correlation with physical examination, clinical symptoms, and laboratory findings is recommended. 3. 2.3 x 1.6 x 1.8 cm focus of more coalescent fluid attenuation centered in the subcutaneous fat of the posterolateral thigh roughly at the level of the proximal femoral fixation screw heads. There is no rim-enhancing to suggest a mature, organized abscess at this time. However, this finding could represent phlegmon in appropriate clinical context, or it could represent a postsurgical collection, the contents of which may be sterile or infected. 4. There is a rectal tube in place. However, there remains a large stool ball in the rectum with free fluid versus coalescent edema on both the anterior and posterior margins of the distended rectum. In appropriate clinical context, these findings could represent proctocolitis or stercoral colitis. I have personally reviewed the image(s) and the resident's interpretation and agree with the findings, Aicha Chowdhury MD at 08/21/2022 9:34 AM Thank you for letting us participate in the care of this patient. If you are a health care provider and have any questions regarding this report, please contact the number below. For patients who have questions please contact the health acute care physician that requested your imaging first. Electronically signed by: Aicha Chowdhury MD, [facility] ([phone]), at 08/21/2022 9:[address] Chest w Contrast (Exam End: 08/20/2022 11:04 PM) Impression 1. Multifocal lower lobe predominant consolidative opacities with additional upper lobe opacities consistent with multifocal pneumonia. Compared to the prior CT of 08/12/2022 the number and size of the opacities has decreased. Recommend follow-up imaging in 3-6 months to document complete resolution. 2. New small, sub-1 cm early cavitation of multiple opacities predominantly within the posterior left upper lobe and left lower lobe. 3. New curvilinear splenic lesions could represent infarct versus late arterial phase splenic arterial opacification. Thank you for letting us participate in the care of this patient. If you are a health care provider and have any questions regarding this report, please contact the number below. For patients who have questions please contact the health acute care physician that requested your imaging first. Hip 2-3 Views Left (Exam End: 08/22/2022 12:19 AM) Impression No radiographic evidence of infection. Thank you for letting us participate in the care of this patient. If you are a health care provider and have any questions regarding this report, please contact the number below. For patients who have questions please contact the health acute care physician that requested your imaging first. Electronically signed by: Viktor Cervantes MD, [facility] ([phone]), at 08/22/2022 12:43 PM XR Pelvis (Generic) (Exam End: 08/22/2022 12:19 AM) Impression No radiographic evidence of infection status post left hip ORIF. Thank you for letting us participate in the care of this patient. If you are a health care provider and have any questions regarding this report, please contact the number below. For patients who have questions please contact the health acute care physician that requested your imaging first. Electronically signed by: Richard Billings MD, [facility] ([phone]), at 08/22/2022 10:[address] Angiogram Coronary Arteries (Exam End: 08/27/2022 8:58 AM) Impression Coronary calcium score of 0, consistent with no detectable calcified atherosclerotic plaque burden. No evidence of stenosing soft plaque on the coronary CT arteriogram. CAD RADS 0 Ongoing bilateral pulmonary infectious/inflammatory changes with persistent consolidative opacity especially in the left lower lobe. This could represent a multifocal pneumonia. Recommend follow-up CT in 3 months to assess for resolution. Thank you for letting us participate in the care of this patient. If you are a health care provider and have any questions regarding this report, please contact the number below. For patients who have questions please contact the health acute care physician that requested your imaging first. Electronically signed by: Arlette Mays MD, [facility] ([phone]), at 08/27/2022 11:[address] Chest wo Contrast (Generic) (Exam End: 08/27/2022 8:58 AM) Impression Stable findings of multifocal pneumonia. No interval abnormality. Thank you for letting us participate in the care of this patient. If you are a health care provider and have any questions regarding this report, please contact the number below. For patients who have questions please contact the health acute care physician that requested your imaging first. Electronically signed by: MINH QUIROGA MD, [facility] ([phone]), at 08/27/2022 10:48 AM XR Fluoro Barium Swallow (Modified/Video Swallow Pharynx) (Exam End: 08/31/2022 11:23 AM) Impression Abnormal modified barium swallow as above. Please see speech pathology report for further discussion. Thank you for letting us participate in the care of this patient. If you are a health care provider and have any questions regarding this report, please contact the number below. For patients who have questions please contact the health acute care physician that requested your imaging first. Electronically signed by: Aron Billings MD, [facility] ([phone]), at 08/31/2022 12:02 PM Medications: Scheduled: ??? insulin glargine (Lantus;Semglee) (100 unit/mL) subcutaneous injection 14 Units Subcutaneous Daily ??? buPROPion 100 mg Per NG tube Daily ??? insulin lispro protamine-insulin lispro 75/25 33 Units Subcutaneous Daily ??? miconazole nitrate Topical (Top) BID ??? metoproloL tartrate 12.5 mg Oral 2 times per day ??? sacubitriL-valsartan 1 tablet Oral BID ??? empagliflozin 10 mg Oral Daily ??? valproic acid 300 mg Per NG tube Q6H ??? QUEtiapine 100 mg Oral Nightly ??? lidocaine 3 patch Transdermal Q24H ??? insulin lispro 1-5 Units Subcutaneous Q4H LAZARUS ??? ergocalciferoL (vitamin D2) 50,000 Units Per NG tube Weekly ??? enoxaparin 40 mg Subcutaneous Daily ??? atorvastatin 80 mg Per NG tube QPM ??? folic acid 1,000 mcg Per NG tube Daily ??? ferrous sulfate 300 mg Per NG tube Every Other Day ??? chlorhexidine 15 mL Oral BID ??? pantoprazole 40 mg Intravenous BID ??? sodium chloride 0.9 % (flush) 5 mL Intravenous BID ??? acetaminophen 1,000 mg Oral Q8H LAZARUS ??? thiamine 100 mg Intravenous Daily Continuous: ??? tube feeding diet 1,320 mL (09/03/22 0602) PRN: ondansetron, iohexoL, melatonin, polyethylene glycoL, senna, bisacodyL, potassium chloride in water OR potassium chloride in water OR potassium chloride in water, sodium chloride 0.9 % (flush), lidocaine, nitroGLYcerin, glucose 40% oral geL OR dextrose 10% OR glucagon ASSESSMENT and PLAN: Ishan Irving is a 62 y.o. female w/ PMH of L femoral neck fracture (s/p fixation early August),??bipolar disorder, resolving medication-induced Parkinsonism, insulin-dependent diabetes mellitus,??hx of alcohol use disorder (reported to be in remission for 1.5 years) c/b chronic pancreatitis,iron deficiency anemia,??GERD??c/b??esophagitis &??Farrell's esophagus, who was admitted to [facility] on 08/14/2022 (now on Hospital Day #20) for mixed shock with concern for stress cardiomyopathy (Takotsubo Cardiomyopathy) suspected to have been secondary to large volume aspiration from worsening dysphagia leading to aspiration pneumonia/pneumonitis. 09/03: Patient appears dramatically improved today, with such an overwhelming change in her cognitive status that her was weeping tears of homero at her bedside. This strongly suggests that her profound psychomotor slowing over the previous days is at least largely in part due to depressive (perhaps borderline catatonic) symptoms from her depression. Will plan to continue bupropion IR AM only per Psychiatry recs. I suspect that with a dramatic change in her psychomotor slowing, her dysphagia may also be improved, thus negating the need for a percutaneous feeding tube, discussed with GAS STATION SUPERVISOR and plan for MBS tomorrow, will remove dobhoff prior to minimize other factors worsening dysphagia. Today's plan: - Discuss wellbutrin dose with Yg - Consider dose of IV iron for additional supplementation to low stores - Ongoing therapy with PT, OT, and GAS STATION SUPERVISOR - Venofer x 1 to supplement oral iron for iron deficiency anemia milvia Neuro: # Bipolar Disorder - Depakote 300 mg oral liquid per Dobhoff tube q6hr. - Continue Seroquel 100mg nightly - Will check VPA trough level 08/29. 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 - Psychiatry Consult, appreciate recs, recommended starting wellbutrin - Started Wellbutrin 100mg IR as other formulations cannot be crushed ?? Pulmonary: # Acute hypoxic respiratory failure, resolved. # Bilateral airspace opacities/multifocal pneumonia -??Respiratory support with LFNC PRN; currently on RA - Antibiotics: zosyn for pneumonia, stopped per ID - Fungitell and Fungal Cx positive, no change in management at this time per ID - CT Chest showed persistent pneumonia; ID followed, patient completed course of antibioitics ?? Cardiac: # Distributive Shock # NSTEMI Type I vs Type II # HFrEF (EF 25%) # C/f Stress Cardiomyopathy - Will not perform LHC given results of CTA coronary arteries. - ASA 81mg, Plavix 75mg, stopped today given low suspicion for CAD. - initially Losartan 25mg daily, now on entresto - Metoprolol 25mg daily, starting 08/30 as tartrate for Dobhoff - Spironolactone 12.5mg QD (held starting 08/30 in setting of NPO status) - Start entresto 24-26mg as part of GDT - Start empagliflozin 10mg as part of GDT - Continue Lovenox - Mg >1, K >4 ?? GI: # GERD c/b Farrell's esophagus & esophagitis # Constipation- resolved # Rectal wall edema 2/2 stool ball - Has Miralax, senna, dulcolax PRN ordered - Continue home pantoprazole 40 BID ?? Endocrine: # Insulin-dependent diabetes -??Diabetes Management consulted, appreciate recs - Continue Glargine 23u daily UNTIL 08/31 - hypoglycemic in AM intermittently, changed to 20u 08/31 -??Humalog 75/25 30 units before tube feeds. - Moderate SSI ?? Hematology/oncology: # Mixed JERRICA and ACD - Oral iron supplementation started 08/21. - Ferritin, Iron, TIBC resulted; mixed picture - Transfuse for Hb <8 - S/p 1u pRBC 08/22 ?? Infectious disease:?? # Septic shock # Bilateral airspace opacities/multifocal pneumonia # L Hip Fluid Collection # Subcentimeter left posterior upper lobe cavitary lesions - Infectious work-up initially did not yield any clear causative organisms - S/p BAL 08/21 without any growth to date. - IR, orthopedic surgery consulted for evaluation of L hip fluid collection. No intervention/drainable target. - Stopped zosyn as per ID (08/14- 08/23) - Fungal testing positive no change in management at this time per ID #Housekeeping: DVT PPx: LMWH SCD GI PPx: Diet: Sips and Chips (Give Meds) Lines: PICC Line - Double Lumen 08/19/22 1655 basilic vein (medial side of arm), right 5 Fr (Active) Number of days: 14 D/c planning: TBD pending clinical course Code status: Attempt Cardiopulmonary Resuscitation - Inpatient Irwin Jones MD Internal Medicine PGY1 Medicine Team: Jose Juan, Pager #[phone] Date: 09/03/2022 Associated attestation - Tenisha Sandy MD - 09/04/2022 9:34 PM EDT Attending Attestation and Certification Please see Irwin Jones MD's note for details of the patient history of presentation and data. I have discussed, reviewed and agree with the documented History, Physical findings, Assessment and Plan of care. I have examined the patient myself and personally reviewed all studies. In addition, I certify thatI am a [facility] credentialed attending provider with admitting privileges and that the patient meets or has met medical necessity to require an inpatient IPI level of care meeting a minimum of two midnights or is on the [facility] inpatient only procedure list (status C) due to: acute metabolic encephalopathy,management of nstemi/stress cardiomyopathy, s/p treatment of sepsis. Also management of IV fluids as patient is not able to tolerate any PO intake. Awaiting MBS. * Feroz Portillo, STONE BREAKER - 09/02/2022 3:10 PM EDT Physical Therapy Note Treatment Number PT: 7 Patient profile: Ishan Irving is a 62 y.o. female admitted on 08/14/2022 with a medical history notable for??recent L femoral neck fracture,??bipolar disorder, resolving medication-induced Parkinsonism, insulin-dependent diabetes mellitus,??hx of alcohol use disorder (reported to be in remission for 1.5 years) c/b chronic pancreatitis, iron deficiency anemia,??GERD??c/b??esophagitis &??Farrell's esophagus??presenting in transfer from [facility], suspected to be in cardiogenic shock and found to be in mixed shock with concern for stress cardiomyopathy. She is s/p ORIF left femoral neck fracture ~ 08/08 at OSH. Interval History: Uneventful Social History: single level home w ramp to enter. 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 Pt drives, does all community chores. Does have a RW avail at home which she had been using since ORIF. Fall Hx: Spouse reports that pt slipped in a puddle of water left by the dog which is the cause of her hip fx Precautions/Special Considerations: WBAT L leg, Fall risk, dobhoff Mobility and Positioning Recommendations: ?? Pt. Transfers bed to chair w RW and Ax 2 and fww, ?? Please encourage up to chair for meal times as able. Subjective: Pt responding yes/no to most inquiries, minimal additional comments Objective: Patient seen for physical therapy and demonstrated the following: Pain: no c/o pain Vital Signs: stable on room air. ?? Pt supine in bed, agreeable to therapy ?? Supine to sit, HOB slightly elevated, Mod A for trunk ?? Steady sitting edge of bed, extra time required to scoot toward the edge ?? Performed ankle pumps/circles, heel/toe raises and seated marching ?? Sit<->stand to FWW, Min A x 2, asks to sit shortly after standing ?? Stand pivot transfer from bed to wheelchair, FWW, Min A x 2, cues for walker management, pt sitsprematurely on the edge of the chair, able to scoot her hips backward ?? Brought down to in-pt gym ?? Stand pivot transfer to and from Nu step, FWW and Min A x 2 ?? Nu step for 5 minutes, no resistance, occasional rest breaks, display not working for distance or speed ?? Brought to // bars ?? Sit<->stand x 9 in the // bars, Min A x 2 ?? Ambulated 7 ft x 2 in the // bars, chair follow, CGA x 2, variable distance, a few steps to a couple feet each time, mulitple rest breaks, anxious and fearful of falling ?? Brought back to pt's room ?? Stand pivot wheelchair to bed, FWW and Min A x 2, ?? Sit to supine, Min A for LE's, then Max A x 2 to boost in bed ?? Pt left supine in bed, with all needs met and with call marshall in reach following visit. Education: Pt edu re: goals of rx, activity progression Assessment: Ishan Irving was seen today for physical therapy treatment session for continuation of POC. Quiet but participatory throughout session. Multiple sit<->stand transfers with good LE strength. Ambulation limited by anxiety and fear of falling, pt frequently requests to sit. Fatigues easily as well but able t tolerate a longer PT session today. Good rehab candidate. Pt will benefit from ongoing therapeutic interventions to achieve therapy goals. Discharge Recommendations: Based on the current findings, Anticipated Discharge Disposition (PT): acute rehabilitation facility, swing bed rehabilitation facility when medically ready for hospital discharge. Consult Recommendations: No other consults recommended at this time. Equipment needs: none Anticipated Equipment Needs at Discharge (PT): to be determined Physical Therapy Goals: To be achieved by 09/07/22: Ongoing ?? 1. Pt. will demonstrate understanding of appropriate exercises and perform them independently or with family. 2. Pt. will perform bed mobility with modified independence. 3. Pt. will perform sit to stand transfers with min A using a front wheeled walker. 4. Pt. will ambulate 10 feet with mod A using a a front wheeled walker. Pt. will ascend/descend step/stairs sufficient for home using rail and assist of 1 Plan: Therapy Frequency (PT): 2-4 times/wk for skilled PT rx as outlined in initial evaluation. Patient agrees with plan as stated. Time IN / OUT: 14:25-1510 Total Minutes, Physical Therapy: 45 Billing Code: TE-F x 3 FEROZ PORTILLO PTA Pager: [phone] Physical Therapy Inpatient Rehabilitation Department * Tanya Figueroa, GAS STATION SUPERVISOR - 09/02/2022 2:09 PM EDT Speech Therapy Note Patient Profile:??Ishan Irving is a 62 year old female with a medical history notable for??recent L femoral neck fracture,??bipolar disorder, resolving medication-induced Parkinsonism, insulin-dependent diabetes mellitus,??hx of alcohol use disorder (reported to be in remission for 1.5 years)c/b chronic pancreatitis, iron deficiency anemia,??GERD??c/b??esophagitis &??Farrell's esophagus??presenting in transfer from [facility]on 08/14/2022, suspected to be in cardiogenic shock and found to be in mixed shock with concern for stress cardiomyopathy.??GAS STATION SUPERVISOR following for swallow, cognitive tx. MBS completed 08/31/22 noting moderate-severe oropharyngeal dysphagia. Lines/Drains: DHT(08/17/22), PICC Precautions: Fall risk, Aspiration risk, Delirium and High risk skin breakdown Continuous Interventions: ??? tube feeding diet 110 mL/hr at 09/02/22 1200 Interval History: No significant changes. Per Resident notes, - PT evaluated and recommends swing bed - GI consulted and recommends patient continue working w/GAS STATION SUPERVISOR, can consider PEG if inadequate improvement Subjective: Awake/alert, reports I am good that (back) hurts with HOB >45 degrees today. Flat affect remains but continues to be more conversant and engaged each day. No signs of hypoactive delirium this date, overall mental status continues to be gradually improving. RN reports Pt identified RN from Wednesday's shift. Objective: Pt seen for dysphagia management and demonstrated the following: Vital Signs During Session: SpO2 95-97% RR DNT, appeared functional HR 80-90 Pain: Back Pain, improved with HOB <45 degree Respiratory Status: Room air Current Diet: Sips and Chips (Give Meds), DHT Feeding / Oral Care Status: Pt requires cues and / or assistance Cognitive-Linguistic Status: ?? Fully Conscious: Awake, alert, oriented to self, month/year/date GAYAT[place] with calendar, correctly selected hospital name given 2 choices. Comprehends spoken or written words, follows commands ?? Orientation Log Score: 27 (Improving from score of 21 last week) ?? Expresses interest in word soto puzzle, joining dot drawings. ?? Attempts to [place] words using word soto puzzles - denies any assistance form GAS STATION SUPERVISOR during this task. Searches 9 words independently and expresses interest in continuing with similar tasks. ?? Continues to have flat affect ?? Asks questions during session ?? Object naming 100% accuracy ?? Auditory comprehension 100% accuracy Command Following: Follows single step commands Positioning: HOB at <45 degrees Oral / Laryngeal Mechanism Clinical Assessment: Unchanged from previous session. Bolus Presentation(s) ?? Ice chip - 1 piece x5 trials Oral Preparatory Phase ?? Mastication: Delayed/prolonged pattern with ice ?? Oral Transit: Delayed/prolonged ?? Labial Seal / Loss: Good oral acceptance and No anterior loss ?? Oral Stasis: No pooling with liquids in oral cavity Pharyngeal Phase ?? Delay in swallow initiation suspected?: Yes 3-4 seconds per bolus ?? Vocal quality: Clear and No changes ?? Multiple Swallows per bolus: noted with ice chips to clear oral residue given verbal cues ?? Cough / throat clear: No overt cough noted with ice chips, delayed cough noted after PO ice chipcompleted ?? Pt. complaint of food getting stuck: Negative per Pt report ?? Fatigue across trials: Yes ?? Respiratory rate and respiratory swallow pattern: WFL Esophageal Observations: No belching noted today, has hx of GERD Swallow exercises: Trialed effortful swallow to fatigue x10- fair utilization noted, difficulty initiating second follow-up swallow. Lingual ROM/strengthening completed x10 each side with max cues. Education: Patient educated on results and recommendations, and verbalized understanding. No followup questions were asked by Pt. Patient status, treatment and swallow recommendations were discussedwith nursing. Assessment: ??? Pt willing to work on word puzzles along with swallow exercises. ??? Pt continues to demonstrate good airway protection with ice chips in limited PO trials, good participation in swallowing exercises with max cues/education today. ??? Gradual improvement in swallow function noted w/ increase in cognition. At this time, swallow function is inefficient and Pt requires max assist to use safety strategies. ??? Consider long-term means of nutrition/hydration to provide nutrition during rehab course. GAS STATION SUPERVISOR will f/u for ongoing swallow and cognitive intervention. ?? Barium swallow (esophagram) will be helpful at later date (due to hx of Farrell's esophagus/GERD), however Pt is at high potential for aspiration during study d/t positioning requirements for this test. Likely will need a repeat MBS prior to ordering of barium swallow. ?? Pt would benefit from skilled GAS STATION SUPERVISOR services to maximize swallow function and safety to address limitations as noted above. ?? Diagnosis: Dysphagia Outcome and Severity Scale (MIGUEL ANGEL): Level 2: Moderate-severe dysphagia ?? Recommendations: Diet: NPO, May offer individual ice chips for pleasure / practice. *Consider long-term means of nutrition/hydration pending Pt/family wishes* PO medications: IV or other alternative means only Aspiration Precautions: ??? Excellent oral care ??? 1:1 assist with ice chips Speech Therapy Goals: (To be met by discharge) Pt will tolerate least restrictive diet without evidence of dysphagia / aspiration. Pt / caregiver will be independent with aspiration precautions, diet modifications, and safe swallowing strategies. Pt will demonstrate effortful swallows with good execution Pt will independently demonstrate lingual, labial, buccal, facial exercises with good execution Pt will maintain hydration / nutrition with optimal safety and efficiency. Delirium: Pt will improve orientation to x4 consistently with use of frequent re- orientations and visual aides in room as able. Pt will participate in simple reasoning and memory tasks to promote cognitive simulation and reducerisk of delirium Pt/caregivers will follow anti-delirium precautions independently with assist from staff as needed Pt will participate in ongoing cognitive-linguistic evaluation. Plan: Therapy Frequency (GAS STATION SUPERVISOR Eval): 2-4 times/wk Pt./family are in agreement with treatment plan. Total Minutes (Speech Language Pathology): 24 Thank you for this consult with this patient. Please feel free to page me with any questions or concerns. Tanya Figueroa MS, GAS STATION SUPERVISOR-CF Pager #[phone] Speech Language Pathology Inpatient Rehabilitation Medicine * Ghulam Torres MD - 09/02/2022 12:10 PM EDT Palliative super quick note Ran to catch antonio at bedside with Ishan. Introduced myself and palliative. Family welcoming to the support and visit. Antonio has to get home to [facility] to take care of their house, their dog Xeda (great Humberto little one). Very open to connecting tomorrow between 7-12noon. I hear there's is worry about dysphagia, the need for PEG etc and am happy to help in anyway. Will followup with team today and family tomorrow AM. If a more urgent need for decision making is needed for this afternoon, please reach out to me and I can make phone calls. Ghulam Torres MD Palliative No billing. * Alicia Gillis - 09/02/2022 12:09 PM EDT Assisted patient and to make a call to [employer] to submit claim for health related reasons. Patient gave verbal permission for me to speak with unemployment and we proceeded to walk through the process together. Patients will provide this proposal lead writer with documentation for the physician to fill out once it has been received in the mail. * Irwin Jones MD - 09/02/2022 7:19 AM EDT Images from the original note were not included. Inpatient Hospital Medicine Progress Note 09/02/2022 Patient Name: ISHAN IRVING Date of : 1960 Age: 62 y.o. Hospital Admit Date: 08/14/2022 Hospital Day: 19 Inpatient Attending: Tenisha Sandy MD PCP: Chris Stanley APRN ([phone]) No chief complaint on file. ID: Ishan Irving is a 62 y.o. 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.5 years) c/b chronic pancreatitis, iron deficiency anemia, ??GERD??c/b??esophagitis &??Farrell's esophagus, who was admitted to [facility] on 08/14/2022 (now on Hospital Day #19), and transferred to Hospital Medicine team from Cardiology on 08/30 for mixed shock with concern for stress cardiomyopathy (Takotsubo Cardiomyopathy). 24 HOUR EVENTS & SUBJECTIVE: Yesterday: - Psychiatry consult, recommend starting Wellbutrin for presumed depression versus hypoactive delirium - PT evaluated and recommends swing bed - GI consulted and recommends patient continue working w/GAS STATION SUPERVISOR, can consider PEG if inadequate improvement Overnight: - NAEO - Wellbutrin could not be given as XL formulation cannot be crushed - Changed to 100mg IR formulation q12h Today AM: pt reports the following: Patient reports she feels well today, reports no constitutional symptoms and no other complaints orconcerns. Patient's Antonio at bedside this AM, notes he had a perc G-tube in the past and would feel very comfortable performing the required maintenance of it if Ihsan were to have one placed. Patient's in agreement with theory that patient's current psychomotor slowing may be rel ated to depression symptoms. OBJECTIVE: Vitals: Last value Range last 24 hrs Temperature Temp: 36.7 ??C (98.1 ??F) Temp: [36.4 ??C (97.5 ??F)-36.7 ??C (98.1 ??F)] Heart Rate Heart Rate: 75 Heart Rate: [73-97] Blood Pressure BP: 103/65 BP: (93-126)/(52-71) Art Line BP BP (Arterial Line): 111/70 BP (Arterial Line): -- MAP (NBP): [68 mmHg-85 mmHg] Respiratory Rate Resp: 14 Resp: [14-16] SpO2 SpO2: 97 % SpO2: [95 %-97 %] Oxygen Delivery Oxygen Therapy O2 Device: None (Room air) O2 Flow Rate (L/min): 3 L/min FiO2 (%): 21 % Reason for Oxygen: Patient currently on room air Intake/Output Summary (Last 24 hours) at 09/02/2022 0719 Last data filed at 09/02/2022 0603 Gross per 24 hour Intake 456 ml Output 1450 ml Net -994 ml I/O last 3 completed shifts: In: 646 [I.V.:10; NG/GT:516] Out: 1650 [Urine:1650] Last Bowel Movement: 09/02/22 Body mass index is 30.17 kg/m??. Patient Vitals for the past 168 hrs: Weight 09/02/22 0550 70.1 kg (154 lb 8 oz) 09/01/22 0600 68.1 kg (150 lb 3.2 oz) 08/31/22 0600 67.7 kg (149 lb 4.8 oz) 08/30/22 0600 67.8 kg (149 lb 6.4 oz) 08/29/22 0451 70.4 kg (155 lb 3.2 oz) 08/27/22 0512 69.6 kg (153 lb 6.4 oz) Admit wt: 69 kg Physical Exam: GENERAL: Awake, moderately somnolent, no acute distress, dobhoff in place w/well-fitting bridle HEENT: Anicteric, no conjunctival injection CV: RRR, no murmurs/rubs/gallops, 2+ radial/DP pulses PULM: Normal respiratory effort, CTA with good air entry bilaterally, coarse bibasilar breath sounds improved versus yesterday ABDOMEN: Soft, non-tender, non-distended, no masses, no guarding EXTREMITIES: No lower extremity edema. No clubbing or cyanosis PSYCH/NEURO: flattened affect and intact cognition, no tremor, minimal cogwheeling UEs SKIN: Warm, dry, no rashes LABS: CBC: Recent Labs 09/02/22 0105 09/01/22 0210 08/31/22 0430 08/30/22 0405 08/29/22 0930 WBC 5.9 5.5 6.7 7.0 7.5 HGB 8.3* 8.7* 8.7* 8.4* 8.7* HCT 27.7* 28.5* 29.2* 27.8* 28.5* PLATELET 344 361* 330 407* 448* NEUTROABS 2.83 2.52 4.03 4.26 5.42 Chemistry: Recent Labs 09/02/22 0105 09/01/22 0210 08/30/22 0405 08/29/22 0930 08/28/22 0700 NA 136 140 140 137 141 K 4.4 4.6 4.1 4.4 4.2 CL 100 104 104 103 105 CO2 30 29 28 25 27 BUN 30* 29* 19* 19* 15 CREATININE 0.52* 0.51* 0.50* 0.47* 0.46* GLUCOSE 114 86 133 289* 113 ANIONGAP 6 7 8 9 9 Recent Labs 09/02/22 0105 09/01/22 0210 08/31/22 0430 08/30/22 0405 08/29/22 0930 08/28/22 0700 CALCIUM 9.5 9.4 -- 9.4 9.2 9.4 MAGNESIUM 0.87 0.94 0.81 0.90 0.81 0.87 PHOS 3.9 4.3 3.4 3.7 3.4 4.6* LFT's: Recent Labs 08/20/22 1400 08/15/22 0950 08/15/22 0305 BILITOT <0.2* <0.2* 0.2 BILIDIR 0.1 0.1 0.1 ALBUMIN 2.5* 2.4* 2.4* ALKPHOS 213* 102 99 ALT 20 12 13 AST 39* 21 25 Coags: No results for input(s): PT, INR, PTT, FIBRINOGEN, DDIMER in the last 168 hours. Invalid input(s): THROMBIN TIME No results for input(s): INR in the last 168 hours. Cardiac enzymes: Recent Labs 08/19/22 0120 08/14/22 2355 CK 32 -- PROBNP -- >35,000* Endocrine: Recent Labs 08/20/22 1400 08/15/22 0000 TSH 1.90 0.28 Recent Labs 08/15/22 0305 HA1C 6.2* CRP, Sed Rate Recent Labs 08/21/22 1200 CRP 19.4* SEDRATE >119* Lipids: Lab Results Component Value Date CHLPL 110 08/29/2022 HDL 34 08/29/2022 CHOLHDL 3.2 08/29/2022 TRIG 127 08/29/2022 LDLCHOL 51 08/29/2022 Heme: No results for input(s): LDH, HAPTOGLOBIN, URICACID in the last 168 hours. ABG (Arterial Blood Gas): No results found for: PHART, PO2ART, BOO8QWQ, HHQ7GJP VBG (Venous Blood Gas): No results for input(s): PHVEN, XCM6GSW, PO2VEN, KLK0OYZ, BEVEN, VCS7UVF in the last 72 hours. EKG: Lab Results Component Value Date/Time DIAGLINE 09/01/2022 0224 Normal sinus rhythm T wave abnormality, consider inferior ischemia T wave abnormality, consider anterolateral ischemia Prolonged QT Abnormal ECG When compared with ECG of 16-AUG-2022 03:24, Criteria for Septal infarct are no longer Present T wave inversion less evident in Inferior leads Confirmed by MD Amada, Tae ([id number]) on 09/01/2022 4:28:11 PM QTCCALC 475 09/01/2022 022 Vascular: No results found for: VBTEXTRPT Microbiology: Date Type Result Lab Results Component Value Date/Time URINECULTURE 1,000-9,000 cfu/ml Insignificant growth 08/15/2022 1225 Lab Results Component Value Date/Time GRAMSTAIN 08/21/2022 1650 Few Neutrophils seen No squamous epithelial cells seen No microorganisms seen. GRAMSTAIN 08/21/2022 1645 Moderate Neutrophils seen No squamous epithelial cells seen No microorganisms seen. GRAMSTAIN 08/19/2022 1451 Many Neutrophils seen Few squamous epithelial cells seen No microorganisms seen. LOWERRESPCX 08/21/2022 165 Rare mixed bacterial morphotypes suggestive of normal upper respiratory wliey Lab Results Component Value Date/Time BLOODCX No growth at 5 days. 08/19/2022 1720 BLOODCX No growth at 5 days. 08/19/2022 1330 BLOODCX No growth at 5 days. 08/15/2022 0110 BLOODCX No growth at 5 days. 08/14/2022 2355 Microbiology Results (Last 30 days) Procedure Component Value Units Date/Time Lower Respiratory Culture Bronchial Alveolar Lavage [[id number]] Collected: 08/21/221649 Lab Status: Final result Specimen: Bronchial Alveolar Lavage Updated: 08/23/22740 Lower Respiratory Culture Rare mixed bacterial morphotypes suggestive of normal upper respiratory wiley Gram Stain -- Few Neutrophils seen No squamous epithelial cells seen No microorganisms seen. Fungus Culture & Calc Stain Bronchial Alveolar Lavage [[id number]] (Abnormal) Collected: 08/21/221649 Lab Status: Preliminary result Specimen: Bronchial Alveolar Lavage Updated: 08/24/22 145 AFB culture Bronchial Alveolar Lavage [[id number]] Collected: 08/21/221649 Lab Status: Preliminary result Specimen: Bronchial Alveolar Lavage Updated: 08/24/222218 Acid Fast Bacilli Culture -- No Acid Fast Bacilli isolated to date If active tuberculosis is suspected, the patient should be on [employer] PRECAUTIONS. Call Infection Prevention for assistance if needed. Acid Fast Stain No Acid Fast Bacilli seen Fungus culture [[id number]] (Abnormal) Collected: 08/21/221649 Lab Status: Preliminary result Specimen: Bronchial Alveolar Lavage Updated: 08/24/221451 Fungus Culture Rare Jacky albicans Calcofluor White Stain [[id number]] Collected: 08/21/221649 Lab Status: Final result Specimen: Bronchial Alveolar Lavage Updated: 08/21/222015 Calcofluor Stain Calcofluor White Preparation: Negative Lower Respiratory Culture Bronchial Alveolar Lavage [[id number]] Collected: 08/21/221644 Lab Status: Final result Specimen: Bronchial Alveolar Lavage Updated: 08/23/22740 Lower Respiratory Culture Rare mixed bacterial morphotypes suggestive of normal upper respiratory wiley Gram Stain -- Moderate Neutrophils seen No squamous epithelial cells seen No microorganisms seen. Fungus Culture & Calc Stain Bronchial Alveolar Lavage [[id number]] (Abnormal) Collected: 08/21/221644 Lab Status: Preliminary result Specimen: Bronchial Alveolar Lavage Updated: 08/24/22 1453 AFB culture Bronchial Alveolar Lavage [[id number]] Collected: 08/21/221644 Lab Status: Preliminary result Specimen: Bronchial Alveolar Lavage Updated: 08/24/22 2221 Acid Fast Bacilli Culture -- No Acid Fast Bacilli isolated to date If active tuberculosis is suspected, the patient should be on [employer] PRECAUTIONS. Call Infection Prevention for assistance if needed. Acid Fast Stain No Acid Fast Bacilli seen Fungus culture [[id number]] (Abnormal) Collected: 08/21/221644 Lab Status: Preliminary result Specimen: Bronchial Alveolar Lavage Updated: 08/24/22 145 Fungus Culture Rare Jacky albicans Calcofluor White Stain [[id number]] Collected: 08/21/221644 Lab Status: Final result Specimen: Bronchial Alveolar Lavage Updated: 08/21/22 2017 Calcofluor Stain Calcofluor White Preparation: Negative Blood culture [[id number]] Collected: 08/19/22 1720 Lab Status: Final result Specimen: Blood Updated: 08/24/22 2301 Blood Culture No growth at 5 days. Lower Respiratory Culture Sputum Induced [[id number]] Collected: 08/19/22 1451 Lab Status: Final result Specimen: Sputum Induced Updated: 08/21/22 0948 Lower Respiratory Culture Rare mixed bacterial morphotypes suggestive of normal upper respiratory wiley Gram Stain -- Many Neutrophils seen Few squamous epithelial cells seen No microorganisms seen. Blood culture [[id number]] Collected: 08/19/22 1330 Lab Status: Final result Specimen: Blood Updated: 08/24/22 1501 Blood Culture No growth at 5 days. Legionella Urinary Antigen [[id number]] Collected: 08/18/22 1013 Lab Status: Final result Specimen: Urine Updated: 08/18/22 2252 Legionella Urinary Antigen Negative Comment: A negative Legionella Urinary Antigen by EIA suggests no recent or current infection with L. pneumophila Serogroup 1. Antigen may not be present in urine in early infection, and the level of antigen present in the urine may be below the detection limit of the test. Sensitivity: 95% Specificity 95%. Urine culture Indwelling Catheter Urine; Other; sepsis, bacteria on UA [[id number]] Collected: 08/15/22 1225 Lab Status: Final result Specimen: Indwelling Catheter Urine Updated: 08/16/22 0804 Urine Culture 1,000-9,000 cfu/ml Insignificant growth COVID-19 PCR [[id number]] Collected: 08/15/22 1150 Lab Status: Final result Specimen: Nasopharyngeal Swab Updated: 08/15/22 1501 SARS-CoV-2 RNA PCR Not Detected Comment: This result should be interpreted in combination with the clinical observations, patient history and epidemiological information. For testing of asymptomatic individuals, assay performance characteristics and clinical utility have not been evaluated. Testing for SARS-CoV-2 (Severe acute respiratory syndrome coronavirus 2, formerly known as 2019 novel coronavirus or 2019-nCoV) to aid in the diagnosis of COVID-19 is performed using the Simplexa COVID-19 Direct Assay by [employer] as authorized by the FDA issued Emergency Use Authorization (EUA). This assay is intended for In-vitro Diagnostic (IVD) use with nasopharyngeal swabs collected from individuals meeting the CDC criteria for testing. The assay is performed based on the instructions for use and additional guidance provided by the FDA. Testing is performed in the Microbiology Laboratory within the Department of Pathology and Laboratory Medicine at [facility], certified under the Clinical Laboratory Improvement Amendments of 1988 (CLIA), 42 U.S.C. section 263a, to perform high complexity tests. Assay performance has been verified according to clinical laboratory regulatory requirements. Test results are provided above. A result of Not Detected indicates that the viral RNA target is not present but does not preclude SARS-CoV-2 infection. False negative results may occur if a specimen is improperly collected, transported or handled; if amplification inhibitors are present; or if inadequate numbers of viral particles are present in the specimen. A result of Detected suggests a current or recent infection and the patient is presumed to be infected. Positive and negative predictive values for this test are highly dependent on disease prevalence. A result of Invalid indicates the inability to conclusively determine the presence or absence of SARS-CoV-2 RNA in the sample which can be due to a variety of factors. Recollection is recommended in the case of an invalid result. CDC COVID-19 criteria for testing on human specimens and clinical management guidance information are available at the CDC Coronavirus Disease 2019 (COVID-19) webpage under Information for Healthcare Professionals (https://www.cdc.gov/coronavirus/2019-ncov/hcp/index.html). Additional information about this and other EUA tests can be found in provider and patient fact sheets at the following FDA website: https://www.fda.gov/medical-devices/yxazflbdhkt-kturbxp-2100-lhylx-25-axmufkabv- uzz-ysgsgknanenhfb-fstbzhh-devices/rwraf-bcoraidrvlh-canl SARS-CoV-2 Source PLANT SUPERVISOR Swab Lower Respiratory Culture Sputum Induced [[id number]] Collected: 08/15/22 0740 Lab Status: Final result Specimen: Sputum Induced Updated: 08/17/22 1015 Lower Respiratory Culture Rare normal upper respiratory wiley Gram Stain -- Many Neutrophils Few squamous epithelial cells Rare mixed bacterial morphotypes suggestive of normal upper respiratory wiley Blood culture [[id number]] Collected: 08/15/22 0110 Lab Status: Final result Specimen: Blood Updated: 08/20/22 0701 Blood Culture No growth at 5 days. MRSA PCR Screen ([facility]/CGP/APD/NLH) [[id number]] Collected: 08/15/22 0050 Lab Status: Final result Specimen: Nasopharyngeal Swab Updated: 08/17/22 1419 MRSA Result Negative MRSA Interp -- Methicillin-resistant Staphylococcus aureus (MRSA) is NOT DETECTED The MRSA target DNA sequences (mec and SCC) were not detected within the acceptable ranges using the Xpert MRSA NxG on the GeneXpert Dx System ([employer]). This suggests the absence of MRSA in the patient specimen submitted for testing. This test is cleared by the U.S. Food and Drug Administration for clinical use and its performance characteristics have been verified by the [facility] at [facility]. This result does not rule out the presence of any other organisms. Rare false negative results may occur if MRSA is present at low concentrations with much higher concentrations of other organisms including MRSE or S. aureus with an empty SCC cassette. Comment: [VERIFIED DATE]08.17.22 Verified By:Shannon Smiley (Electronic Signature) Blood culture [[id number]] Collected: 08/14/22 2288 Lab Status: Final result Specimen: Blood Updated: 08/20/22 0701 Blood Culture No growth at 5 days. Imaging/Diagnostics: Results for orders placed or performed during the hospital encounter of 08/14/22 XR Chest One View (Exam End: 08/15/2022 1:00 AM) Impression FINDINGS/IMPRESSION: * Moderate pulmonary edema. * No confluent airspace opacity otherwise seen. * Cannot exclude small pleural effusions. * Cardiomediastinal contours appear within normal limits. * Endotracheal tube tip projects 3.8 cm above the consuelo. * RIGHT neck central catheter, distal catheter coiled over the region of the RIGHT ventricle and pulmonary trunk. Thank you for letting us participate in the care of this patient. If you are a health care provider and have any questions regarding this report, please contact the number below. For patients who have questions please contact the health acute care physician that requested your imaging first. Abdomen 1 view (Generic) (Exam End: 08/15/2022 8:33 AM) Impression The enteric tube sidehole is not definitively subdiaphragmatic. Recommend advancement. Preliminary report signed by: Carlos Wolff at 08/15/2022 9:00 AM I have personally reviewed the image(s) and the resident's interpretation and agree with the findings, Liliane Adams MD at 08/15/2022 9:05 AM Thank you for letting us participate in the care of this patient. If you are a health care provider and have any questions regarding this report, please contact the number below. For patients who have questions please contact the health acute care physician that requested your imaging first. Electronically signed by: Liliane Adams MD, [facility] ([phone]), at 08/15/2022 9:05 AM XR Chest One View (Exam End: 08/15/2022 1:14 AM) Impression FINDINGS/IMPRESSION: * RIGHT neck central catheter redemonstrated terminating over the region of the pulmonary trunk, now uncoiled distally although the tip is looped. * Moderate pulmonary edema redemonstrated. * ET tube projects similar. Thank you for letting us participate in the care of this patient. If you are a health care provider and have any questions regarding this report, please contact the number below. For patients who have questions please contact the health acute care physician that requested your imaging first. Abdomen 1 view (Generic) (Exam End: 08/15/2022 6:38 AM) Impression Nonspecific/nondiagnostic appearance of the abdomen, with large stool burden in the RIGHT hemiabdomen and pelvis. Thank you for letting us participate in the care of this patient. If you are a health care provider and have any questions regarding this report, please contact the number below. For patients who have questions please contact the health acute care physician that requested your imaging first. Chest One View (Exam End: 08/16/2022 10:31 AM) Impression PA catheter has a persistent loop near the tip, similar to the prior comparison study. Improved pulmonary edema. Thank you for letting us participate in the care of this patient. If you are a health care provider and have any questions regarding this report, please contact the number below. For patients who have questions please contact the health acute care physician that requested your imaging first. Electronically signed by: Alofnso Adams MD, [facility] ([phone]), at 08/16/2022 10:[address] Head wo Contrast (Generic) (Exam End: 08/16/2022 10:44 PM) Impression No acute intracranial abnormality and no change from prior Thank you for letting us participate in the care of this patient. If you are a health care provider and have any questions regarding this report, please contact the number below. For patients who have questions please contact the health acute care physician that requested your imaging first. Electronically signed by: Moustapha Correa MD, [facility] ([phone]), at 08/16/2022 11:19 PM XR Abdomen 1 view (Generic) (Exam End: 08/17/2022 12:09 PM) Impression Status post Dobbhoff tube placement with catheter tip terminating at the approximate position of greater curvature. I have personally reviewed the image(s) and the resident's interpretation and agree with the findings, Jenn Pina MD at 08/17/2022 2:31 PM Thank you for letting us participate in the care of this patient. If you are a health care provider and have any questions regarding this report, please contact the number below. For patients who have questions please contact the health acute care physician that requested your imaging first. Head wo Contrast (Generic) (Exam End: 08/18/2022 3:14 PM) Impression No acute intracranial process. Thank you for letting us participate in the care of this patient. If you are a health care provider and have any questions regarding this report, please contact the number below. For patients who have questions please contact the health acute care physician that requested your imaging first. Electronically signed by: Antonio Jordan MD, [facility] ([phone]), at 08/18/2022 3:18 PM XR Chest One View (Exam End: 08/19/2022 12:30 PM) Impression 1. Increased bibasilar airspace opacities compared to radiograph 08/16/2022, concerning for an infectious/inflammatory process. A component of edema not excluded. 2. Overall decreased pulmonary edema. I have personally reviewed the image(s) and the resident's interpretation and agree with the findings, Alan De Guzman MD at 08/19/2022 3:14 PM Thank you for letting us participate in the care of this patient. If you are a health care provider and have any questions regarding this report, please contact the number below. For patients who have questions please contact the health acute care physician that requested your imaging first. Electronically signed by: Alan De Guzman MD, [facility] ([phone]), at 08/19/2022 3:14 PM MRI Brain wo Contrast (Exam End: 08/19/2022 10:15 PM) Impression No acute infarction, mass or mass effect. Thank you for letting us participate in the care of this patient. If you are a health care provider and have any questions regarding this report, please contact the number below. For patients who have questions please contact the health acute care physician that requested your imaging first. Chest for Verifying Vascular Access PICC Placement At Bedside (Exam End: 08/19/2022 4:36 PM) Impression PICC tip is in the superior vena cava above the right atrium. Thank you for letting us participate in the care of this patient. If you are a health care provider and have any questions regarding this report, please contact the number below. For patients who have questions please contact the health acute care physician that requested your imaging first. Electronically signed by: Alan De Guzman MD, [facility] ([phone]), at 08/19/2022 4:[address] Hip w Contrast Left (Exam End: 08/20/2022 11:04 PM) Impression 1. Uncomplicated left femoral neck ORIF with unchanged postoperative alignment. 2. Moderate skin thickening and subcutaneous stranding about the lateral left hip with lateral left thigh intramuscular edema and fascial thickening. These findings are nonspecific and may be seen in the routine postoperative setting. Underlying soft tissue infection with infectious or inflammatory myositis may also have this appearance. Correlation with physical examination, clinical symptoms, and laboratory findings is recommended. 3. 2.3 x 1.6 x 1.8 cm focus of more coalescent fluid attenuation centered in the subcutaneous fat of the posterolateral thigh roughly at the level of the proximal femoral fixation screw heads. There is no rim-enhancing to suggest a mature, organized abscess at this time. However, this finding could represent phlegmon in appropriate clinical context, or it could represent a postsurgical collection, the contents of which may be sterile or infected. 4. There is a rectal tube in place. However, there remains a large stool ball in the rectum with free fluid versus coalescent edema on both the anterior and posterior margins of the distended rectum. In appropriate clinical context, these findings could represent proctocolitis or stercoral colitis. I have personally reviewed the image(s) and the resident's interpretation and agree with the findings, Aicha Chowdhury MD at 08/21/2022 9:34 AM Thank you for letting us participate in the care of this patient. If you are a health care provider and have any questions regarding this report, please contact the number below. For patients who have questions please contact the health acute care physician that requested your imaging first. Electronically signed by: Aicha Chowdhury MD, [facility] ([phone]), at 08/21/2022 9:[address] Chest w Contrast (Exam End: 08/20/2022 11:04 PM) Impression 1. Multifocal lower lobe predominant consolidative opacities with additional upper lobe opacities consistent with multifocal pneumonia. Compared to the prior CT of 08/12/2022 the number and size of the opacities has decreased. Recommend follow-up imaging in 3-6 months to document complete resolution. 2. New small, sub-1 cm early cavitation of multiple opacities predominantly within the posterior left upper lobe and left lower lobe. 3. New curvilinear splenic lesions could represent infarct versus late arterial phase splenic arterial opacification. Thank you for letting us participate in the care of this patient. If you are a health care provider and have any questions regarding this report, please contact the number below. For patients who have questions please contact the health acute care physician that requested your imaging first. Hip 2-3 Views Left (Exam End: 08/22/2022 12:19 AM) Impression No radiographic evidence of infection. Thank you for letting us participate in the care of this patient. If you are a health care provider and have any questions regarding this report, please contact the number below. For patients who have questions please contact the health acute care physician that requested your imaging first. Electronically signed by: Viktor Cervantes MD, [facility] ([phone]), at 08/22/2022 12:43 PM XR Pelvis (Generic) (Exam End: 08/22/2022 12:19 AM) Impression No radiographic evidence of infection status post left hip ORIF. Thank you for letting us participate in the care of this patient. If you are a health care provider and have any questions regarding this report, please contact the number below. For patients who have questions please contact the health acute care physician that requested your imaging first. Electronically signed by: Richard Billings MD, [facility] ([phone]), at 08/22/2022 10:[address] Angiogram Coronary Arteries (Exam End: 08/27/2022 8:58 AM) Impression Coronary calcium score of 0, consistent with no detectable calcified atherosclerotic plaque burden. No evidence of stenosing soft plaque on the coronary CT arteriogram. CAD RADS 0 Ongoing bilateral pulmonary infectious/inflammatory changes with persistent consolidative opacity especially in the left lower lobe. This could represent a multifocal pneumonia. Recommend follow-up CT in 3 months to assess for resolution. Thank you for letting us participate in the care of this patient. If you are a health care provider and have any questions regarding this report, please contact the number below. For patients who have questions please contact the health acute care physician that requested your imaging first. Electronically signed by: Arlette Mays MD, [facility] ([phone]), at 08/27/2022 11:[address] Chest wo Contrast (Generic) (Exam End: 08/27/2022 8:58 AM) Impression Stable findings of multifocal pneumonia. No interval abnormality. Thank you for letting us participate in the care of this patient. If you are a health care provider and have any questions regarding this report, please contact the number below. For patients who have questions please contact the health acute care physician that requested your imaging first. Electronically signed by: MINH QUIROGA MD, [facility] ([phone]), at 08/27/2022 10:48 AM XR Fluoro Barium Swallow (Modified/Video Swallow Pharynx) (Exam End: 08/31/2022 11:23 AM) Impression Abnormal modified barium swallow as above. Please see speech pathology report for further discussion. Thank you for letting us participate in the care of this patient. If you are a health care provider and have any questions regarding this report, please contact the number below. For patients who have questions please contact the health acute care physician that requested your imaging first. Electronically signed by: Aron Billings MD, [facility] ([phone]), at 08/31/2022 12:02 PM Medications: Scheduled: ??? insulin glargine (Lantus;Semglee) (100 unit/mL) subcutaneous injection 16 Units Subcutaneous Daily ??? insulin lispro protamine-insulin lispro 75/25 33 Units Subcutaneous Daily ??? buPROPion XL 150 mg Oral Daily ??? miconazole nitrate Topical (Top) BID ??? metoproloL tartrate 12.5 mg Oral 2 times per day ??? sacubitriL-valsartan 1 tablet Oral BID ??? empagliflozin 10 mg Oral Daily ??? valproic acid 300 mg Per NG tube Q6H ??? QUEtiapine 100 mg Oral Nightly ??? lidocaine 3 patch Transdermal Q24H ??? insulin lispro 1-5 Units Subcutaneous Q4H LAZARUS ??? ergocalciferoL (vitamin D2) 50,000 Units Per NG tube Weekly ??? enoxaparin 40 mg Subcutaneous Daily ??? atorvastatin 80 mg Per NG tube QPM ??? folic acid 1,000 mcg Per NG tube Daily ??? ferrous sulfate 300 mg Per NG tube Every Other Day ??? chlorhexidine 15 mL Oral BID ??? pantoprazole 40 mg Intravenous BID ??? sodium chloride 0.9 % (flush) 5 mL Intravenous BID ??? acetaminophen 1,000 mg Oral Q8H LAZARUS ??? thiamine 100 mg Intravenous Daily Continuous: ??? tube feeding diet 1,320 mL (09/02/22 0604) PRN: ondansetron, iohexoL, melatonin, polyethylene glycoL, senna, bisacodyL, potassium chloride in water OR potassium chloride in water OR potassium chloride in water, sodium chloride 0.9 % (flush), lidocaine, nitroGLYcerin, glucose 40% oral geL OR dextrose 10% OR glucagon ASSESSMENT and PLAN: Ishan Irving is a 62 y.o. female w/ PMH of L femoral neck fracture (s/p fixation early August),??bipolar disorder, resolving medication-induced Parkinsonism, insulin-dependent diabetes mellitus,??hx of alcohol use disorder (reported to be in remission for 1.5 years) c/b chronic pancreatitis,iron deficiency anemia,??GERD??c/b??esophagitis &??Farrell's esophagus, who was admitted to [facility] on 08/14/2022 (now on Hospital Day #19) for mixed shock with concern for stress cardiomyopathy (Takotsubo Cardiomyopathy) suspected to have been secondary to large volume aspiration from worsening dysphagia leading to aspiration pneumonia/pneumonitis. 09/02: Patient appears overall clinically similar to yesterday with no significant changes in clinical or cognitive status versus yesterday. Given Psychiatry team's low concern for hypoactive delirium and concern for her psychomotor slowing being due to depressive symptoms, will start bupropion in a formulation compatible with NG-tube. GI team suspects her regurgitation symptoms are not related to stricture as it would be very unlikely to have progressed significantly since last upper GI endoscopy with Dr. Marquis in June. Anticipate further GAS STATION SUPERVISOR intervention with hope that patient is able to discharge with PO nutrition, percutaneous G-tube remains a possibility. Patient's profound psychomotor slowing raises some concern for catatonia. May consider trial of benzodiazepines if response is not seen to wellbutrin. Today's plan: - Start wellbutrin today - Ongoing therapy with PT, OT, and GAS STATION SUPERVISOR - Replete mag w/2gm for goal >1 - reticulocyte count (further interrogation of microcytic anemia) Neuro: # Bipolar Disorder - Depakote 300 mg oral liquid per Dobhoff tube q6hr. - Continue Seroquel 100mg nightly - Will check VPA trough level 08/29. 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 - Psychiatry Consult, appreciate recs, recommended starting wellbutrin - Started Wellbutrin 100mg IR as other formulations cannot be crushed ?? Pulmonary: # Acute hypoxic respiratory failure, resolved. # Bilateral airspace opacities/multifocal pneumonia -??Respiratory support with LFNC PRN; currently on RA - Antibiotics: zosyn for pneumonia, stopped per ID - Fungitell and Fungal Cx positive, no change in management at this time per ID - CT Chest showed persistent pneumonia; ID followed, patient completed course of antibioitics ?? Cardiac: # Distributive Shock # NSTEMI Type I vs Type II # HFrEF (EF 25%) # C/f Stress Cardiomyopathy - Will not perform LHC given results of CTA coronary arteries. - ASA 81mg, Plavix 75mg, stopped today given low suspicion for CAD. - initially Losartan 25mg daily, now on entresto - Metoprolol 25mg daily, starting 08/30 as tartrate for Dobhoff - Spironolactone 12.5mg QD (held starting 08/30 in setting of NPO status) - Start entresto 24-26mg as part of GDT - Start empagliflozin 10mg as part of GDT - Continue Lovenox - Mg >1, K >4 ?? GI: # GERD c/b Farrell's esophagus & esophagitis # Constipation- resolved # Rectal wall edema 2/2 stool ball - Has Miralax, senna, dulcolax PRN ordered - Continue home pantoprazole 40 BID ?? Endocrine: # Insulin-dependent diabetes -??Diabetes Management consulted, appreciate recs - Continue Glargine 23u daily UNTIL 08/31 - hypoglycemic in AM intermittently, changed to 20u 08/31 -??Humalog 75/25 30 units before tube feeds. - Moderate SSI ?? Hematology/oncology: # Mixed JERRICA and ACD - Oral iron supplementation started 08/21. - Ferritin, Iron, TIBC resulted; mixed picture - Transfuse for Hb <8 - S/p 1u pRBC 08/22 ?? Infectious disease:?? # Septic shock # Bilateral airspace opacities/multifocal pneumonia # L Hip Fluid Collection # Subcentimeter left posterior upper lobe cavitary lesions - Infectious work-up initially did not yield any clear causative organisms - S/p BAL 08/21 without any growth to date. - IR, orthopedic surgery consulted for evaluation of L hip fluid collection. No intervention/drainable target. - Stopped zosyn as per ID (08/14- 08/23) - Fungal testing positive no change in management at this time per ID #Housekeeping: DVT PPx: LMWH SCD GI PPx: Diet: Sips and Chips (Give Meds) Lines: PICC Line - Double Lumen 08/19/22 1655 basilic vein (medial side of arm), right 5 Fr (Active) Number of days: 13 D/c planning: TBD pending clinical course Code status: Attempt Cardiopulmonary Resuscitation - Inpatient Irwin Jones MD Internal Medicine PGY1 Medicine Team: Jose Juan, Pager #[phone] Date: 09/02/2022 Associated attestation - Tenisha Sandy MD - 09/02/2022 9:06 PM EDT Attending Attestation and Certification Please see Irwin Jones MD's note for details of the patient history of presentation and data. I have discussed, reviewed and agree with the documented History, Physical findings, Assessment and Plan of care. I have examined the patient myself and personally reviewed all studies. In addition, I certify thatI am a [facility] credentialed attending provider with admitting privileges and that the patient meets or has met medical necessity to require an inpatient IPI level of care meeting a minimum of two midnights or is on the [facility] inpatient only procedure list (status C) due to: acute metabolic encephalopathy,management of nstemi/stress cardiomyopathy, s/p treatment of sepsis. Also management of IV fluids as patient is not able to tolerate any PO intake. * Shashi Young - 09/01/2022 5:29 PM EDT Marketing Automation Analyst Encounter Note Patient Name: Ishan Irving : [id number] MR#: [id number] Admit Date: 08/14/2022 11:11 PM Hospital Day 18 days Narrative: Self initiated follow up visit to patient for Spiritual support in a regular unit rounds. I visitedpatient with ERI Orozco - a Residency nurse shadowing me. Assessment: Patient is awake, alert, oriented and responsive lying in bed. Patient is very open, friendly and receptive. Patient sounds positive and hopeful. Patient says, I will be going out of here very soon. Patient doesn't know how soon though. Patient's family is struggling with concern about their mom being in the hospital per patient. Patient wants prayer and blessing. Intervention and Outcome: I offered patient Pastoral presence, Empathetic listening, Spiritual/Emotional support and encouragement. I brought to patient peace, comfort, compassion and consolation. I prayed for patient and blessed her. Patient expressed appreciation. Follow-up: As needed. Time in Direct Care: 15 Shashi Young 09/01/2022 * Petty Mccullough, G[employer] STATION SUPERVISOR - 09/01/2022 1:56 PM EDT Speech Therapy Note Patient Profile:??Ishan Irving is a 62 year old female with a medical history notable for??recent L femoral neck fracture,??bipolar disorder, resolving medication-induced Parkinsonism, insulin-dependent diabetes mellitus,??hx of alcohol use disorder (reported to be in remission for 1.5 years)c/b chronic pancreatitis, iron deficiency anemia,??GERD??c/b??esophagitis &??Farrell's esophagus??presenting in transfer from [facility]on 08/14/2022, suspected to be in cardiogenic shock and found to be in mixed shock with concern for stress cardiomyopathy.??G[employer] STATION SUPERVISOR following for swallow, cognitive tx. MBS completed 08/31/22 noting moderate-severe oropharyngeal dysphagia. Lines/Drains: DHT, PICC Precautions: Fall risk, Aspiration risk, Delirium and High risk skin breakdown Continuous Interventions: ??? tube feeding diet 110 mL/hr at 09/01/22 0600 Interval History: No significant changes. Some bradycardia and desaturation overnight resolved today. Subjective: Awake/alert, reports Very tired today. Flat affect remains but continues to be more conversant and engaged each day. No signs of hypoactive delirium this date, overall mental status continues to be gradually improving. Objective: Pt seen for dysphagia management and demonstrated the following: Vital Signs During Session: SpO2 98-100% RR DNT, appeared functional HR 80-90 Pain: Pain in bottom, improved with repositioning Respiratory Status: Room air Current Diet: Sips and Chips (Give Meds), DHT Feeding / Oral Care Status: Pt requires cues and / or assistance Cognitive-Linguistic Status: Fully Conscious: Awake, alert, oriented to self, month/year/date [facility] with calendar, correctly selected hospital name given 2 choices. Comprehends spoken or written words,follows commands Command Following: Follows single step commands Positioning: HOB at 85 degrees Oral / Laryngeal Mechanism Clinical Assessment: Unchanged from previous session. Bolus Presentation(s) ?? Ice chip x1 ?? Thin liquid via cup (3 oz) Oral Preparatory Phase ?? Mastication: Delayed/prolonged pattern with ice ?? Oral Transit: Delayed/prolonged ?? Labial Seal / Loss: Good oral acceptance and No anterior loss ?? Oral Stasis: No pooling with liquids in oral cavity Pharyngeal Phase ?? Delay in swallow initiation suspected?: Yes 3-4 seconds per bolus ?? Vocal quality: Clear and No changes ?? Multiple Swallows per bolus: Delayed spontaneous f/u swallow x1 with water, similar to MBS. Difficulty initiating second spontaneous swallow in context of swallow tx, states Theres nothing there. ?? Cough / throat clear: Cough with water in 1/4 trials, none with ice chip ?? Pt. complaint of food getting stuck: Yes notes discomfort/difficulty swallowing all consistencies ?? Fatigue across trials: Yes ?? Respiratory rate and respiratory swallow pattern: WFL Esophageal Observations: Intermittent belching noted today, consistent with hx of GERD Trialed effortful swallow to fatigue x10- fair utilization noted, difficulty initiating second follow-up swallow. Lingual ROM/strengthening completed x10 each side with max cues. Orientation Log Score: 24 (Improving from score of 21 last week) Education: Detailed education completed this date re: yesterdays MBS, recommendations for hospital admission/rehab course and rec to consider G-tube placement while Pt gets stronger. Pt asked How long until swallow improves- I suspect few weeks to a few months depending on her gains in physical strength, cough response, and overall clinical improvement. Pt states this is reasonable and would beagreeable to G-tube if needed for short period of time. All questions/concerns addressed. Assessment: ??? Follow-up swallow intervention completed following yesterdays (08/31) MBS. Pt continues to demonstrate inconsistent s/s of aspiration with ice chips and water, good participation in swallowing exercises with max cues/education today. ??? I am hopeful that Pt's swallow function will improve with time + swallow therapy and improvements in physical mobility and cognitive status. At this time, swallow function is very inefficient andPt requires max assist to use safety strategies. ??? Consider long-term means of nutrition/hydration to provide nutrition during rehab course. GAS STATION SUPERVISOR will f/u for ongoing swallow and cognitive intervention. ?? Barium swallow (esophagram) will be helpful at later date (due to hx of Farrell's esophagus/GERD), however Pt is at high potential for aspiration during study d/t positioning requirements for this test. Likely will need a repeat MBS prior to ordering of barium swallow. ?? Pt would benefit from skilled GAS STATION SUPERVISOR services to maximize swallow function and safety to address limitations as noted above. ?? Diagnosis: Dysphagia Outcome and Severity Scale (MIGUEL ANGEL): Level 2: Moderate-severe dysphagia ?? Recommendations: Diet: NPO, May offer individual ice chips for pleasure / practice. *Consider long-term means of nutrition/hydration pending Pt/family wishes* PO medications: IV or other alternative means only Aspiration Precautions: ??? Excellent oral care ??? 1:1 assist with ice chips Speech Therapy Goals: (To be met by discharge) Pt will tolerate least restrictive diet without evidence of dysphagia / aspiration. Pt / caregiver will be independent with aspiration precautions, diet modifications, and safe swallowing strategies. Pt will demonstrate effortful swallows with good execution Pt will independently demonstrate lingual, labial, buccal, facial exercises with good execution Pt will maintain hydration / nutrition with optimal safety and efficiency. Delirium: Pt will improve orientation to x4 consistently with use of frequent re- orientations and visual aides in room as able. Pt will participate in simple reasoning and memory tasks to promote cognitive simulation and reducerisk of delirium Pt/caregivers will follow anti-delirium precautions independently with assist from staff as needed Pt will participate in ongoing cognitive-linguistic evaluation. Plan: Therapy Frequency (GAS STATION SUPERVISOR Eval): 2-4 times/wk Pt./family are in agreement with treatment plan. Total Minutes (Speech Language Pathology): 26 Petty Mccullough M.S., [facility]-GAS STATION SUPERVISOR Inpatient Speech-Pathology Pager: [phone] * Alicia Cook OT - 09/01/2022 1:38 PM EDT Occupational Therapy Treatment Note Treatment Number OT: 3 Patient Dx: Ishan Irving is a 62 y.o. female admitted on 08/14/2022 with a medical history notable for??recent L femoral neck fracture,??bipolar disorder, resolving medication-induced Parkinsonism, insulin-dependent diabetes mellitus,??hx of alcohol use disorder (reported to be in remission for 1.5 years) c/b chronic pancreatitis, iron deficiency anemia,??GERD??c/b??esophagitis &??Farrell's esophagus??presenting in transfer from [facility], suspected to be in cardiogenic shock and found to be in mixed shock with concern for stress cardiomyopathy. She is s/p ORIF left femoral neck fracture. Precautions/Special Considerations: aspiration, skin breakdown, falls, LLE WBAT, Dobhoff tube, Mcrae Interval History: NAEON. Intermittently disoriented, but stable overnight. S: Can I have the phone by me? O: Patient seen for skilled OT treatment, and demonstrated the following: ?? Self-care: - Mod A to brush hair using R UE. Encouraged to sustain participation in this task. Assisted to complete and to style - Commode placed in room. Purewick remains in place but leaked onto bed. Board updated to notify nursing staff that pt is able to transfer to commode with 2 assist and FWW - Max A to wash gavin-anal area in standing at FWW with CG - Dependent to don both sneakers ?? Mobility: - Supine to sit using abdominal strategy (sitting in long-sitting and pulling to sit using lower bed rails) - Able to swing both legs off side of bed - Good unsupported sitting balance at EOB. - Sit to stand with Min A of 2 to FWW - Ambulated with slow reciprocal gait with Min A of 1 and SBA of another/line management 6-8' x 2 with rest break - Uncontrolled descent to chair both times d/t fatigue and fear of falling I'm going to fall. I need to sit - Pt up in recliner chair at end of session with call light in reach, chair alarm, spouse in room ?? Cognition: ?? Behavior / Mood: alert, cooperative and flat affect ?? Alert and oriented to: person, place, time and situation ?? Follows commands: 1 step, 100% of the time and requires increased time ?? Attention: WFL ?? Safety awareness: WFL, aware of L femur Fx ?? Vision: Glasses have been brought in by spouse and pt wearing today; wears corrective lenses at all times ?? Endurance: Poor ?? Vitals: VSS ?? Strength/ROM: - Yellow T Band for triceps x 10 reps. Pt encouraged to count reps with no follow-through - Tactile cues at sternum and low back for postural correction while seated with good initial response but could not sustain for greater than a few seconds. - Active shoulder flexion in unsupported sitting to about 90 degrees (within limitations of kyphotic posture) Pain: Denies Education: Pt/family/caregiver education ongoing regarding: ADL, Exercise, Positioning, Recommendations and Discharge planning. Staff Communication: Patient status, treatment, and mobility recommendations discussed with nursing/other staff. Pt aware of need to urinate. ASSESSMENT: Pt mobility has improved to allow commode to be placed in room today. Pt able to transfer and ambulate with two assist for safety. Min A x 2 sit to stand with FWW and gait in room. Pt is fearful of falling and fatigues quickly. Affect remains flat. Pt requires encouragement to sustain participation in ADL tasks. Equipment needs at discharge: to be determined Anticipated Discharge Disposition: acute rehabilitation facility, [facility] facility Daily schedule / Staff Recommendations: ? ? Encourage use of coping & calming strategies ??? Give choices when possible to support feelings of autonomy ? ? Frequent orientation verbally & visually with calendars/clocks/whiteboard ? ? Keep glasses, hearing aides, etc within reach & offer to pt as appropriate ??? Facilitate a normal sleep-wake cycle ??? Provide brief, clear instruction and direction from one source at a time ??? Provide calming music, favorite TV programs, magazines or newspapers ??? Utilize upright chair position using bed features or transfer to recliner chair as appropriate with mechanical lift ??? Encourage participation in ADL's by providing set up A on tray table and physical assist only as needed Occupational Therapy Goals: To be achieved by 09/08/22: ?? Patient will complete toileting tasks (hygiene, clothing management, transfers) with Mod A and withAE, as needed Patient will ambulate household distances with Mod A and with AD, as needed Patient will be consistently A&Ox4 with external cues Patient will complete UB/LB sponge bathing tasks with Min A, while seated with AE, as needed Patient will complete grooming task (comb hair, brush teeth) with supervision, seated EOB Pt will follow 2 step motor command 5/5 times during session Therapy Frequency (OT): 2-4 times/wk Total Minutes, Occupational Therapy: 38 (2 TA) Pager: [phone] Alicia Cook, OT 09/01/2022 Occupational Therapy Rehabilitation Department * Gene Young, PT - 09/01/2022 9:48 AM EDT Physical Therapy Note Treatment Number PT: 6 Patient profile: Ishan Irving is a 62 y.o. female admitted on 08/14/2022 with a medical history notable for??recent L femoral neck fracture,??bipolar disorder, resolving medication-induced Parkinsonism, insulin-dependent diabetes mellitus,??hx of alcohol use disorder (reported to be in remission for 1.5 years) c/b chronic pancreatitis, iron deficiency anemia,??GERD??c/b??esophagitis &??Farrell's esophagus??presenting in transfer from [facility], suspected to be in cardiogenic shock and found to be in mixed shock with concern for stress cardiomyopathy. She is s/p ORIF left femoral neck fracture ~ 08/08 at OSH. Interval History: NPO except for ice chips after modified barriam swallow yesterday. Social History: single level home w ramp to enter. 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 Pt drives, does all community chores. Does have a RW avail at home which she had been using since ORIF. Fall Hx: Spouse reports that pt slipped in a puddle of water left by the dog which is the cause of her hip fx Precautions/Special Considerations: WBAT L leg, Fall risk, dobhoff Mobility and Positioning Recommendations: ?? Pt. Transfers bed to chair w RW and Ax 2 and fww, ?? Please encourage up to chair for meal times as able. Subjective: Pt not very interactive today. Soft voice Objective: Patient seen for physical therapy and demonstrated the following: , Antonio was present for session today and encouraging. Pain: no pain behaviors today. Vital Signs: stable on room air. ?? Exercises performed prior to mobility: elbow ext with yellow theraband x 10; long sitting upright from reclined with use of UE's and rails x10; ankle pumps active; in sitting hip flexion x 10; knee flexion/extension with yellow theraband x 10. ?? Supine to sit with only min assist for left leg today and HOB elevated. ?? Good sitting balance at the EOB for OT tasks and grooming. ?? Mod assist needed to scoot forward on the bed. ?? Walker was placed in front of pt. ?? She stood to walker with min assist of 2 from bed at higher level. ?? Pt walked 4' x 2 with mod assist of 2 and max encouragement. Very fearful of falling. Poor LE motor control although improving. ?? Sit to stand again from visitor chair with max assist of 1 due to fatigue. She took a few steps to pivot to cc. ?? Pt left in bedside recliner chair, with all needs met, with call marshall in reach and with family at the bedside following visit. Education: Pt edu re: goals of rx, activity progression Assessment: Ishan Irving was seen today for physical therapy treatment session for continuation of POC. Pt was able to take for steps today and quality of movement and control was improved. Improved activity tolerance. She is making slow gains. Needs a lot of encouragement. Good rehab candidate. Pt will benefit from ongoing therapeutic interventions to achieve therapy goals. Discharge Recommendations: Based on the current findings, Anticipated Discharge Disposition (PT): swing bed rehabilitation facility when medically ready for hospital discharge. Consult Recommendations: No other consults recommended at this time. Equipment needs: none Anticipated Equipment Needs at Discharge (PT): to be determined Physical Therapy Goals: ongoing To be achieved by 09/07/22: ?? 1. Pt. will demonstrate understanding of appropriate exercises and perform them independently or with family. 2. Pt. will perform bed mobility with modified independence. 3. Pt. will perform sit to stand transfers with min A using a front wheeled walker. 4. Pt. will ambulate 10 feet with mod A using a a front wheeled walker. Pt. will ascend/descend step/stairs sufficient for home using rail and assist of 1 Plan: Therapy Frequency (PT): 2-4 times/wk for skilled PT rx as outlined in initial evaluation. Patient agrees with plan as stated. Time IN / OUT: 918-948 Total Minutes, Physical Therapy: 30 Billing Code: TA x 1 (seeb with OT) GENE YOUNG, PT Pager: [phone] Physical Therapy Inpatient Rehabilitation Department * Elsie Erickson, CELL OPERATION SUPERVISOR - 09/01/2022 7:30 AM EDT Follow Up Diabetes Consult Patient Interview Blood glucose values and insulin use reviewed. Objective Temp: [36.6 ??C (97.9 ??F)-36.8 ??C (98.2 ??F)] Heart Rate: [81-93] Resp: [14-25] BP: (106-135)/(60-69) SpO2: [94 %-97 %] Heart Rate from SpO2: -- Current Regimen from previous note Lantus: 20 units Humalog??75/25??mixed insulin 31 units administered 10-15 minutes before starting peptamen AF at 98mls/hr x 12 hours To cover 130 grams carbs in 12 hour cycle Lispro for correction q 4 hours based on a correction factor of??20?? Diet??sips and chips and Peptamen AF with goal of 98mls/hr Monitoring:??Q4 Recent Glucose Levels Recent Labs 09/01/22 0329 08/31/22 2346 08/31/22201108/31/22 1632 08/31/22 1142 08/31/22 0736 08/31/22 0408 08/31/22 0003 08/30/22 1958 08/30/22 1659 08/30/22 1129 08/30/22 0859 POCGLU 87 93 110 206* 163 116 88 98 131 169 168 160 ASSESSMENT Ishan Irving is a 62 year old female with a medical history notable for??recent L femoral neck fracture,??bipolar disorder, resolving medication- induced Parkinsonism, insulin-dependent diabetesmellitus,??hx of alcohol use disorder (reported to be in remission for 1.5 years) c/b chronic pancreatitis, iron deficiency anemia,??GERD??c/b??esophagitis &??Farrell's esophagus??presenting in transfer from [facility], suspected to be in cardiogenic shock and found to be in mixed shock with concern for stress cardiomyopathy.??A1C of 6.2% upon admission suggesting an average BG of??131??mg/dL for the past 6-8 weeks. Currently has variability of blood glucose levels while hospitalized requiring adjustment of insulin regimen and DM medications. ?? Peptamen AF??TFs continue, now cycled 6am to 6pm. ??Running currently at 55mls/hr with goal rate 98mls/hr cycled over these 12 hours. Peptamen AF running at 98mls/hr (112 CHO per 1000cc) delivers 10.9 grams carbs/hr and 131 grams carbs over a 12 hour period of time.?Humalog 75/25 ??mixed insulin??31??units (based on ICR 4) was administered before start of feed to cover the carbohydrates in the12 hour cycle of feed. She required 4 units of correction insulin. Lantus decreased 20% to 16 unitswith evidence of lower BGs when TFs not running. This reflects her weight based dosing. Mixed insulin dose increased to address corrections. ?? PLAN Lantus:16 units Humalog??75/25??mixed insulin 33 units administered 10-15 minutes before starting peptamen AF at 98mls/hr x 12 hours To cover 130 grams carbs in 12 hour cycle Lispro for correction q 4 hours based on a correction factor of??20?? Diet??sips and chips and Peptamen AF with goal of 98mls/hr Monitoring:??Q4 Elsie Erickson APRN [facility] Endocrinology Diabetes Management Pager [phone] * Irwin Jones MD - 09/01/2022 7:19 AM EDT Images from the original note were not included. Inpatient Hospital Medicine Progress Note 09/01/2022 Patient Name: ISHAN IRVING Date of : 1960 Age: 62 y.o. Hospital Admit Date: 08/14/2022 Hospital Day: 18 Inpatient Attending: Tenisha Sandy MD PCP: Chris Stanley APRN ([phone]) No chief complaint on file. ID: Ishan Irivng is a 62 y.o. 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.5 years) c/b chronic pancreatitis, iron deficiency anemia, ??GERD??c/b??esophagitis &??Farrell's esophagus, who was admitted to [facility] on 08/14/2022 (now on Hospital Day #18), and transferred to Hospital Medicine team from Cardiology on 08/30 for mixed shock with concern for stress cardiomyopathy (Takotsubo Cardiomyopathy). 24 HOUR EVENTS & SUBJECTIVE: Yesterday: - MBS performed, GAS STATION SUPERVISOR recommend NPO with ice chips for pleasure - Per Diabetes Management Team - lantus decreased to 20 units, humalog 75/25 to 31 units daily for tube feeds coverage, continue w/ current SS correction. Glucose 87-289 over last 24 hours - PT evaluated and recommends swing bed Overnight: - NAEO - Bradycardic into 30s-40s briefly, remained asymptomatic, EKG unremarkable Today AM: pt reports the following: Patient reports she feels well today, no fevers/chills/myalgias/arthralgias. Patient denies pain orother acute concerns. Collateral obtained from today who indicates that patient is near cognitive baseline but appears overall slowed and concerned that this may represent medication side effect. Olanzapine was discontinued many months ago with parkinsonian features immediately disappearing. OBJECTIVE: Vitals: Last value Range last 24 hrs Temperature Temp: 36.8 ??C (98.2 ??F) Temp: [36.6 ??C (97.9 ??F)-36.8 ??C (98.2 ??F)] Heart Rate Heart Rate: 81 Heart Rate: [81-103] Blood Pressure BP: 118/69 BP: (91-135)/(55-69) Art Line BP BP (Arterial Line): 111/70 BP (Arterial Line): -- MAP (NBP): [66 mmHg-81 mmHg] Respiratory Rate Resp: 16 Resp: [14-25] SpO2 SpO2: 94 % SpO2: [94 %-97 %] Oxygen Delivery Oxygen Therapy O2 Device: None (Room air) O2 Flow Rate (L/min): 3 L/min FiO2 (%): 21 % Reason for Oxygen: New documented hypoxia Intake/Output Summary (Last 24 hours) at 09/01/2022 0719 Last data filed at 09/01/2022 0600 Gross per 24 hour Intake 190 ml Output 600 ml Net -410 ml I/O last 3 completed shifts: In: 390 [Other:200; NG/GT:190] Out: 1300 [Urine:1300] Last Bowel Movement: 08/31/22 Body mass index is 29.33 kg/m??. Patient Vitals for the past 168 hrs: Weight 09/01/22 0600 68.1 kg (150 lb 3.2 oz) 08/31/22 0600 67.7 kg (149 lb 4.8 oz) 08/30/22 0600 67.8 kg (149 lb 6.4 oz) 08/29/22 0451 70.4 kg (155 lb 3.2 oz) 08/27/22 0512 69.6 kg (153 lb 6.4 oz) 08/26/22 0500 71.5 kg (157 lb 11.2 oz) Admit wt: 69 kg Physical Exam: GENERAL: Awake, moderately somnolent, no acute distress, dobhoff in place w/well-fitting bridle HEENT: Anicteric, no conjunctival injection CV: RRR, no murmurs/rubs/gallops, 2+ radial/DP pulses PULM: Normal respiratory effort, CTA with good air entry bilaterally, coarse bibasilar breath sounds improved versus yesterday ABDOMEN: Soft, non-tender, non-distended, no masses, no guarding EXTREMITIES: No lower extremity edema. No clubbing or cyanosis PSYCH/NEURO: flattened affect and intact cognition, no tremor, minimal cogwheeling UEs SKIN: Warm, dry, no rashes LABS: CBC: Recent Labs 09/01/22 0210 08/31/22 0430 08/30/22 0405 08/29/22 0930 08/28/22 0700 WBC 5.5 6.7 7.0 7.5 9.0 HGB 8.7* 8.7* 8.4* 8.7* 8.6* HCT 28.5* 29.2* 27.8* 28.5* 27.4* PLATELET 361* 330 407* 448* 464* NEUTROABS 2.52 4.03 4.26 5.42 5.85 Chemistry: Recent Labs 09/01/22 0210 08/30/22 0405 08/29/22 0930 08/28/22 0700 08/27/22 1800 08/27/22 0950 08/27/22 0540 NA 140 140 137 141 -- -- 139 K 4.6 4.1 4.4 4.2 4.0 < > 4.4 CL 104 104 103 105 -- -- 106 CO2 29 28 25 27 -- -- 27 BUN 29* 19* 19* 15 -- -- 15 CREATININE 0.51* 0.50* 0.47* 0.46* -- -- 0.44* GLUCOSE 86 133 289* 113 -- -- 130 ANIONGAP 7 8 9 9 -- -- 6 < > = values in this interval not displayed. Recent Labs 09/01/22 0210 08/31/22 0430 08/30/22 0405 08/29/22 0930 08/28/22 0700 08/27/22 0540 CALCIUM 9.4 -- 9.4 9.2 9.4 9.3 MAGNESIUM 0.94 0.81 0.90 0.81 0.87 0.85 PHOS 4.3 3.4 3.7 3.4 4.6* 3.7 LFT's: Recent Labs 08/20/22 1400 08/15/22 0950 08/15/22 0305 BILITOT <0.2* <0.2* 0.2 BILIDIR 0.1 0.1 0.1 ALBUMIN 2.5* 2.4* 2.4* ALKPHOS 213* 102 99 ALT 20 12 13 AST 39* 21 25 Coags: No results for input(s): PT, INR, PTT, FIBRINOGEN, DDIMER in the last 168 hours. Invalid input(s): THROMBIN TIME No results for input(s): INR in the last 168 hours. Cardiac enzymes: Recent Labs 08/19/22 0120 08/14/22 2355 CK 32 -- PROBNP -- >35,000* Endocrine: Recent Labs 08/20/22 1400 08/15/22 0000 TSH 1.90 0.28 Recent Labs 08/15/22 0305 HA1C 6.2* CRP, Sed Rate Recent Labs 08/21/22 1200 CRP 19.4* SEDRATE >119* Lipids: Lab Results Component Value Date CHLPL 110 08/29/2022 HDL 34 08/29/2022 CHOLHDL 3.2 08/29/2022 TRIG 127 08/29/2022 LDLCHOL 51 08/29/2022 Heme: No results for input(s): LDH, HAPTOGLOBIN, URICACID in the last 168 hours. ABG (Arterial Blood Gas): No results found for: PHART, PO2ART, ATH6XXY, XWL2MIK VBG (Venous Blood Gas): No results for input(s): PHVEN, WSN6RDU, PO2VEN, XFH5ZYZ, BEVEN, CNQ2VSA in the last 72 hours. EKG: Lab Results Component Value Date/Time DIAGLINE 08/16/2022 0324 Normal sinus rhythm Low voltage QRS T wave abnormality, consider inferior ischemia T wave abnormality, consider anterolateral ischemia Abnormal ECG When compared with ECG of 15-AUG-2022 07:36, No significant change was found Confirmed by MD Ty, Jagdeep Gamble ([id number]) on 08/16/2022 11:52:27 AM QTCCALC 454 08/16/2022 0324 Vascular: No results found for: VBTEXTRPT Microbiology: Date Type Result Lab Results Component Value Date/Time URINECULTURE 1,000-9,000 cfu/ml Insignificant growth 08/15/2022 1225 Lab Results Component Value Date/Time GRAMSTAIN 08/21/2022 1650 Few Neutrophils seen No squamous epithelial cells seen No microorganisms seen. GRAMSTAIN 08/21/2022 1645 Moderate Neutrophils seen No squamous epithelial cells seen No microorganisms seen. GRAMSTAIN 08/19/2022 1451 Many Neutrophils seen Few squamous epithelial cells seen No microorganisms seen. LOWERRESPCX 08/21/2022 1650 Rare mixed bacterial morphotypes suggestive of normal upper respiratory wiley Lab Results Component Value Date/Time BLOODCX No growth at 5 days. 08/19/2022 1720 BLOODCX No growth at 5 days. 08/19/2022 1330 BLOODCX No growth at 5 days. 08/15/2022 0110 BLOODCX No growth at 5 days. 08/14/2022 2355 Microbiology Results (Last 30 days) Procedure Component Value Units Date/Time Lower Respiratory Culture Bronchial Alveolar Lavage [[id number]] Collected: 08/21/22 1650 Lab Status: Final result Specimen: Bronchial Alveolar Lavage Updated: 08/23/22 0741 Lower Respiratory Culture Rare mixed bacterial morphotypes suggestive of normal upper respiratory wiley Gram Stain -- Few Neutrophils seen No squamous epithelial cells seen No microorganisms seen. Fungus Culture & Calc Stain Bronchial Alveolar Lavage [[id number]] (Abnormal) Collected: 08/21/221649 Lab Status: Preliminary result Specimen: Bronchial Alveolar Lavage Updated: 08/24/22 1452 AFB culture Bronchial Alveolar Lavage [[id number]] Collected: 08/21/221649 Lab Status: Preliminary result Specimen: Bronchial Alveolar Lavage Updated: 08/24/22 2219 Acid Fast Bacilli Culture -- No Acid Fast Bacilli isolated to date If active tuberculosis is suspected, the patient should be on [employer]. Call Infection Prevention for assistance if needed. Acid Fast Stain No Acid Fast Bacilli seen Fungus culture [[id number]] (Abnormal) Collected: 08/21/221649 Lab Status: Preliminary result Specimen: Bronchial Alveolar Lavage Updated: 08/24/22 145 Fungus Culture Rare Jacky albicans Calcofluor White Stain [[id number]] Collected: 08/21/221649 Lab Status: Final result Specimen: Bronchial Alveolar Lavage Updated: 08/21/222015 Calcofluor Stain Calcofluor White Preparation: Negative Lower Respiratory Culture Bronchial Alveolar Lavage [[id number]] Collected: 08/21/221644 Lab Status: Final result Specimen: Bronchial Alveolar Lavage Updated: 08/23/22 0741 Lower Respiratory Culture Rare mixed bacterial morphotypes suggestive of normal upper respiratory wiley Gram Stain -- Moderate Neutrophils seen No squamous epithelial cells seen No microorganisms seen. Fungus Culture & Calc Stain Bronchial Alveolar Lavage [[id number]] (Abnormal) Collected: 08/21/221644 Lab Status: Preliminary result Specimen: Bronchial Alveolar Lavage Updated: 08/24/22 1453 AFB culture Bronchial Alveolar Lavage [[id number]] Collected: 08/21/221644 Lab Status: Preliminary result Specimen: Bronchial Alveolar Lavage Updated: 08/24/22 2221 Acid Fast Bacilli Culture -- No Acid Fast Bacilli isolated to date If active tuberculosis is suspected, the patient should be on [employer]. Call Infection Prevention for assistance if needed. Acid Fast Stain No Acid Fast Bacilli seen Fungus culture [[id number]] (Abnormal) Collected: 08/21/221644 Lab Status: Preliminary result Specimen: Bronchial Alveolar Lavage Updated: 08/24/22 145 Fungus Culture Rare Jacky albicans Calcofluor White Stain [[id number]] Collected: 08/21/221644 Lab Status: Final result Specimen: Bronchial Alveolar Lavage Updated: 08/21/22 2017 Calcofluor Stain Calcofluor White Preparation: Negative Blood culture [[id number]] Collected: 08/19/22 1720 Lab Status: Final result Specimen: Blood Updated: 08/24/22 2301 Blood Culture No growth at 5 days. Lower Respiratory Culture Sputum Induced [[id number]] Collected: 08/19/22 1451 Lab Status: Final result Specimen: Sputum Induced Updated: 08/21/22 0948 Lower Respiratory Culture Rare mixed bacterial morphotypes suggestive of normal upper respiratory wiley Gram Stain -- Many Neutrophils seen Few squamous epithelial cells seen No microorganisms seen. Blood culture [[id number]] Collected: 08/19/22 1330 Lab Status: Final result Specimen: Blood Updated: 08/24/22 1501 Blood Culture No growth at 5 days. Legionella Urinary Antigen [[id number]] Collected: 08/18/22 1013 Lab Status: Final result Specimen: Urine Updated: 08/18/22 2252 Legionella Urinary Antigen Negative Comment: A negative Legionella Urinary Antigen by EIA suggests no recent or current infection with L. pneumophila Serogroup 1. Antigen may not be present in urine in early infection, and the level of antigen present in the urine may be below the detection limit of the test. Sensitivity: 95% Specificity 95%. Urine culture Indwelling Catheter Urine; Other; sepsis, bacteria on UA [[id number]] Collected: 08/15/22 1225 Lab Status: Final result Specimen: Indwelling Catheter Urine Updated: 08/16/22 0804 Urine Culture 1,000-9,000 cfu/ml Insignificant growth COVID-19 PCR [[id number]] Collected: 08/15/22 1150 Lab Status: Final result Specimen: Nasopharyngeal Swab Updated: 08/15/22 1501 SARS-CoV-2 RNA PCR Not Detected Comment: This result should be interpreted in combination with the clinical observations, patient history and epidemiological information. For testing of asymptomatic individuals, assay performance characteristics and clinical utility have not been evaluated. Testing for SARS-CoV-2 (Severe acute respiratory syndrome coronavirus 2, formerly known as 2019 novel coronavirus or 2019-nCoV) to aid in the diagnosis of COVID-19 is performed using the Simplexa COVID-19 Direct Assay by [employer] as authorized by the FDA issued Emergency Use Authorization (EUA). This assay is intended for In-vitro Diagnostic (IVD) use with nasopharyngeal swabs collected from individuals meeting the CDC criteria for testing. The assay is performed based on the instructions for use and additional guidance provided by the FDA. Testing is performed in the Microbiology Laboratory within the Department of Pathology and Laboratory Medicine at [facility], certified under the Clinical Laboratory Improvement Amendments of 1988 (CLIA), 42 U.S.C. section 263a, to perform high complexity tests. Assay performance has been verified according to clinical laboratory regulatory requirements. Test results are provided above. A result of Not Detected indicates that the viral RNA target is not present but does not preclude SARS-CoV-2 infection. False negative results may occur if a specimen is improperly collected, transported or handled; if amplification inhibitors are present; or if inadequate numbers of viral particles are present in the specimen. A result of Detected suggests a current or recent infection and the patient is presumed to be infected. Positive and negative predictive values for this test are highly dependent on disease prevalence. A result of Invalid indicates the inability to conclusively determine the presence or absence of SARS-CoV-2 RNA in the sample which can be due to a variety of factors. Recollection is recommended in the case of an invalid result. CDC COVID-19 criteria for testing on human specimens and clinical management guidance information are available at the CDC Coronavirus Disease 2019 (COVID-19) webpage under Information for Healthcare Professionals (https://www.cdc.gov/coronavirus/2019-ncov/hcp/index.html). Additional information about this and other EUA tests can be found in provider and patient fact sheets at the following FDA website: https://www.fda.gov/medical-devices/tlkddbfqnvz-funugbe-5882-mmbzb-37-jmbzaylro- ywh-zrxtmkjsdueogk-tqbnhvj-devices/nwdwt-sapgogbuyzx-gdcy SARS-CoV-2 Source PLANT SUPERVISOR Swab Lower Respiratory Culture Sputum Induced [[id number]] Collected: 08/15/22 0740 Lab Status: Final result Specimen: Sputum Induced Updated: 08/17/22 1015 Lower Respiratory Culture Rare normal upper respiratory wiley Gram Stain -- Many Neutrophils Few squamous epithelial cells Rare mixed bacterial morphotypes suggestive of normal upper respiratory wiley Blood culture [[id number]] Collected: 08/15/22 0110 Lab Status: Final result Specimen: Blood Updated: 08/20/22 0701 Blood Culture No growth at 5 days. MRSA PCR Screen ([facility]/CGP/APD/NLH) [[id number]] Collected: 08/15/22 0050 Lab Status: Final result Specimen: Nasopharyngeal Swab Updated: 08/17/22 1419 MRSA Result Negative MRSA Interp -- Methicillin-resistant Staphylococcus aureus (MRSA) is NOT DETECTED The MRSA target DNA sequences (mec and SCC) were not detected within the acceptable ranges using the Xpert MRSA NxG on the GeneXpert Dx System ([employer]). This suggests the absence of MRSA in the patient specimen submitted for testing. This test is cleared by the U.S. Food and Drug Administration for clinical use and its performance characteristics have been verified by the [facility] at [facility]. This result does not rule out the presence of any other organisms. Rare false negative results may occur if MRSA is present at low concentrations with much higher concentrations of other organisms including MRSE or S. aureus with an empty SCC cassette. Comment: [VERIFIED DATE]08.17.22 Verified By:Shannon Smiley (Electronic Signature) Blood culture [[id number]] Collected: 08/14/22 2355 Lab Status: Final result Specimen: Blood Updated: 08/20/22 0701 Blood Culture No growth at 5 days. Imaging/Diagnostics: Results for orders placed or performed during the hospital encounter of 08/14/22 XR Chest One View (Exam End: 08/15/2022 1:00 AM) Impression FINDINGS/IMPRESSION: * Moderate pulmonary edema. * No confluent airspace opacity otherwise seen. * Cannot exclude small pleural effusions. * Cardiomediastinal contours appear within normal limits. * Endotracheal tube tip projects 3.8 cm above the consuelo. * RIGHT neck central catheter, distal catheter coiled over the region of the RIGHT ventricle and pulmonary trunk. Thank you for letting us participate in the care of this patient. If you are a health care provider and have any questions regarding this report, please contact the number below. For patients who have questions please contact the health acute care physician that requested your imaging first. Abdomen 1 view (Generic) (Exam End: 08/15/2022 8:33 AM) Impression The enteric tube sidehole is not definitively subdiaphragmatic. Recommend advancement. Preliminary report signed by: Carlos Wolff at 08/15/2022 9:00 AM I have personally reviewed the image(s) and the resident's interpretation and agree with the findings, Liliane Adams MD at 08/15/2022 9:05 AM Thank you for letting us participate in the care of this patient. If you are a health care provider and have any questions regarding this report, please contact the number below. For patients who have questions please contact the health acute care physician that requested your imaging first. Electronically signed by: Liliane Adams MD, [facility] ([phone]), at 08/15/2022 9:05 AM XR Chest One View (Exam End: 08/15/2022 1:14 AM) Impression FINDINGS/IMPRESSION: * RIGHT neck central catheter redemonstrated terminating over the region of the pulmonary trunk, now uncoiled distally although the tip is looped. * Moderate pulmonary edema redemonstrated. * ET tube projects similar. Thank you for letting us participate in the care of this patient. If you are a health care provider and have any questions regarding this report, please contact the number below. For patients who have questions please contact the health acute care physician that requested your imaging first. Abdomen 1 view (Generic) (Exam End: 08/15/2022 6:38 AM) Impression Nonspecific/nondiagnostic appearance of the abdomen, with large stool burden in the RIGHT hemiabdomen and pelvis. Thank you for letting us participate in the care of this patient. If you are a health care provider and have any questions regarding this report, please contact the number below. For patients who have questions please contact the health acute care physician that requested your imaging first. Chest One View (Exam End: 08/16/2022 10:31 AM) Impression PA catheter has a persistent loop near the tip, similar to the prior comparison study. Improved pulmonary edema. Thank you for letting us participate in the care of this patient. If you are a health care provider and have any questions regarding this report, please contact the number below. For patients who have questions please contact the health acute care physician that requested your imaging first. Electronically signed by: Alfonso Adams MD, [facility] ([phone]), at 08/16/2022 10:[address] Head wo Contrast (Generic) (Exam End: 08/16/2022 10:44 PM) Impression No acute intracranial abnormality and no change from prior Thank you for letting us participate in the care of this patient. If you are a health care provider and have any questions regarding this report, please contact the number below. For patients who have questions please contact the health acute care physician that requested your imaging first. Electronically signed by: Moustapha Correa MD, [facility] ([phone]), at 08/16/2022 11:19 PM XR Abdomen 1 view (Generic) (Exam End: 08/17/2022 12:09 PM) Impression Status post Dobbhoff tube placement with catheter tip terminating at the approximate position of greater curvature. I have personally reviewed the image(s) and the resident's interpretation and agree with the findings, Jenn Pina MD at 08/17/2022 2:31 PM Thank you for letting us participate in the care of this patient. If you are a health care provider and have any questions regarding this report, please contact the number below. For patients who have questions please contact the health acute care physician that requested your imaging first. Head wo Contrast (Generic) (Exam End: 08/18/2022 3:14 PM) Impression No acute intracranial process. Thank you for letting us participate in the care of this patient. If you are a health care provider and have any questions regarding this report, please contact the number below. For patients who have questions please contact the health acute care physician that requested your imaging first. Electronically signed by: Antonio Jordan MD, [facility] ([phone]), at 08/18/2022 3:18 PM XR Chest One View (Exam End: 08/19/2022 12:30 PM) Impression 1. Increased bibasilar airspace opacities compared to radiograph 08/16/2022, concerning for an infectious/inflammatory process. A component of edema not excluded. 2. Overall decreased pulmonary edema. I have personally reviewed the image(s) and the resident's interpretation and agree with the findings, Alan De Guzman MD at 08/19/2022 3:14 PM Thank you for letting us participate in the care of this patient. If you are a health care provider and have any questions regarding this report, please contact the number below. For patients who have questions please contact the health acute care physician that requested your imaging first. Electronically signed by: Alan De Guzman MD, [facility] ([phone]), at 08/19/2022 3:14 PM MRI Brain wo Contrast (Exam End: 08/19/2022 10:15 PM) Impression No acute infarction, mass or mass effect. Thank you for letting us participate in the care of this patient. If you are a health care provider and have any questions regarding this report, please contact the number below. For patients who have questions please contact the health acute care physician that requested your imaging first. Chest for Verifying Vascular Access PICC Placement At Bedside (Exam End: 08/19/2022 4:36 PM) Impression PICC tip is in the superior vena cava above the right atrium. Thank you for letting us participate in the care of this patient. If you are a health care provider and have any questions regarding this report, please contact the number below. For patients who have questions please contact the health acute care physician that requested your imaging first. Electronically signed by: Alan De Guzman MD, [facility] ([phone]), at 08/19/2022 4:[address] Hip w Contrast Left (Exam End: 08/20/2022 11:04 PM) Impression 1. Uncomplicated left femoral neck ORIF with unchanged postoperative alignment. 2. Moderate skin thickening and subcutaneous stranding about the lateral left hip with lateral left thigh intramuscular edema and fascial thickening. These findings are nonspecific and may be seen in the routine postoperative setting. Underlying soft tissue infection with infectious or inflammatory myositis may also have this appearance. Correlation with physical examination, clinical symptoms, and laboratory findings is recommended. 3. 2.3 x 1.6 x 1.8 cm focus of more coalescent fluid attenuation centered in the subcutaneous fat of the posterolateral thigh roughly at the level of the proximal femoral fixation screw heads. There is no rim-enhancing to suggest a mature, organized abscess at this time. However, this finding could represent phlegmon in appropriate clinical context, or it could represent a postsurgical collection, the contents of which may be sterile or infected. 4. There is a rectal tube in place. However, there remains a large stool ball in the rectum with free fluid versus coalescent edema on both the anterior and posterior margins of the distended rectum. In appropriate clinical context, these findings could represent proctocolitis or stercoral colitis. I have personally reviewed the image(s) and the resident's interpretation and agree with the findings, Aicha Chowdhury MD at 08/21/2022 9:34 AM Thank you for letting us participate in the care of this patient. If you are a health care provider and have any questions regarding this report, please contact the number below. For patients who have questions please contact the health acute care physician that requested your imaging first. Electronically signed by: Aicha Chowdhury MD, [facility] ([phone]), at 08/21/2022 9:[address] Chest w Contrast (Exam End: 08/20/2022 11:04 PM) Impression 1. Multifocal lower lobe predominant consolidative opacities with additional upper lobe opacities consistent with multifocal pneumonia. Compared to the prior CT of 08/12/2022 the number and size of the opacities has decreased. Recommend follow-up imaging in 3-6 months to document complete resolution. 2. New small, sub-1 cm early cavitation of multiple opacities predominantly within the posterior left upper lobe and left lower lobe. 3. New curvilinear splenic lesions could represent infarct versus late arterial phase splenic arterial opacification. Thank you for letting us participate in the care of this patient. If you are a health care provider and have any questions regarding this report, please contact the number below. For patients who have questions please contact the health acute care physician that requested your imaging first. Hip 2-3 Views Left (Exam End: 08/22/2022 12:19 AM) Impression No radiographic evidence of infection. Thank you for letting us participate in the care of this patient. If you are a health care provider and have any questions regarding this report, please contact the number below. For patients who have questions please contact the health acute care physician that requested your imaging first. Electronically signed by: Viktor Cervantes MD, [facility] ([phone]), at 08/22/2022 12:43 PM XR Pelvis (Generic) (Exam End: 08/22/2022 12:19 AM) Impression No radiographic evidence of infection status post left hip ORIF. Thank you for letting us participate in the care of this patient. If you are a health care provider and have any questions regarding this report, please contact the number below. For patients who have questions please contact the health acute care physician that requested your imaging first. Electronically signed by: Richard Billings MD, [facility] ([phone]), at 08/22/2022 10:[address] Angiogram Coronary Arteries (Exam End: 08/27/2022 8:58 AM) Impression Coronary calcium score of 0, consistent with no detectable calcified atherosclerotic plaque burden. No evidence of stenosing soft plaque on the coronary CT arteriogram. CAD RADS 0 Ongoing bilateral pulmonary infectious/inflammatory changes with persistent consolidative opacity especially in the left lower lobe. This could represent a multifocal pneumonia. Recommend follow-up CT in 3 months to assess for resolution. Thank you for letting us participate in the care of this patient. If you are a health care provider and have any questions regarding this report, please contact the number below. For patients who have questions please contact the health acute care physician that requested your imaging first. Electronically signed by: Arlette Mays MD, [facility] ([phone]), at 08/27/2022 11:[address] Chest wo Contrast (Generic) (Exam End: 08/27/2022 8:58 AM) Impression Stable findings of multifocal pneumonia. No interval abnormality. Thank you for letting us participate in the care of this patient. If you are a health care provider and have any questions regarding this report, please contact the number below. For patients who have questions please contact the health acute care physician that requested your imaging first. Electronically signed by: MINH QUIROGA MD, [facility] ([phone]), at 08/27/2022 10:48 AM XR Fluoro Barium Swallow (Modified/Video Swallow Pharynx) (Exam End: 08/31/2022 11:23 AM) Impression Abnormal modified barium swallow as above. Please see speech pathology report for further discussion. Thank you for letting us participate in the care of this patient. If you are a health care provider and have any questions regarding this report, please contact the number below. For patients who have questions please contact the health acute care physician that requested your imaging first. Electronically signed by: Aron Billings MD, [facility] ([phone]), at 08/31/2022 12:02 PM Medications: Scheduled: ??? insulin glargine (Lantus;Semglee) (100 unit/mL) subcutaneous injection 20 Units Subcutaneous Daily ??? insulin lispro protamine-insulin lispro 75/25 31 Units Subcutaneous Daily ??? nystatin Topical (Top) BID ??? metoproloL tartrate 12.5 mg Oral 2 times per day ??? sacubitriL-valsartan 1 tablet Oral BID ??? empagliflozin 10 mg Oral Daily ??? valproic acid 300 mg Per NG tube Q6H ??? QUEtiapine 100 mg Oral Nightly ??? lidocaine 3 patch Transdermal Q24H ??? insulin lispro 1-5 Units Subcutaneous Q4H LAZARUS ??? ergocalciferoL (vitamin D2) 50,000 Units Per NG tube Weekly ??? enoxaparin 40 mg Subcutaneous Daily ??? atorvastatin 80 mg Per NG tube QPM ??? folic acid 1,000 mcg Per NG tube Daily ??? ferrous sulfate 300 mg Per NG tube Every Other Day ??? chlorhexidine 15 mL Oral BID ??? pantoprazole 40 mg Intravenous BID ??? sodium chloride 0.9 % (flush) 5 mL Intravenous BID ??? acetaminophen 1,000 mg Oral Q8H LAZARUS ??? thiamine 100 mg Intravenous Daily Continuous: ??? tube feeding diet 110 mL/hr at 09/01/22 0600 PRN: ondansetron, iohexoL, melatonin, polyethylene glycoL, senna, bisacodyL, potassium chloride in water OR potassium chloride in water OR potassium chloride in water, sodium chloride 0.9 % (flush), lidocaine, nitroGLYcerin, glucose 40% oral geL OR dextrose 10% OR glucagon ASSESSMENT and PLAN: Ishan Irving is a 62 y.o. female w/ PMH of L femoral neck fracture (s/p fixation early August),??bipolar disorder, resolving medication-induced Parkinsonism, insulin-dependent diabetes mellitus,??hx of alcohol use disorder (reported to be in remission for 1.5 years) c/b chronic pancreatitis,iron deficiency anemia,??GERD??c/b??esophagitis &??Farrell's esophagus, who was admitted to [facility] on 08/14/2022 (now on Hospital Day #18) for mixed shock with concern for stress cardiomyopathy (Takotsubo Cardiomyopathy) suspected to have been secondary to large volume aspiration from worsening dysphagia leading to aspiration pneumonia/pneumonitis. 09/01: Patient appears overall clinically similar to yesterday with no significant changes in clinical or cognitive status versus yesterday, though perhaps slightly more somnolent this AM while speaking with patient and at bedside. Overall, her current presentation is concerning for hypoactive delirium versus possible side effect from medications versus depressive symptoms as a manifestation of her bipolar disorder. Will discus with Pysch team today. Additionally, will plan to discuss with GI team role for further GI team evaluation for stricture/dysphagia as this will be a barrier to discharge and would prefer to avoid percutaneous feeding tube if at all possible. Today's plan: - Discuss with Psych concerns for AMS - GI consult Neuro: # Bipolar Disorder - Depakote 300 mg oral liquid per Dobhoff tube q6hr. - Continue Seroquel 100mg nightly - Will check VPA trough level 08/29. 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 ?? Pulmonary: # Acute hypoxic respiratory failure, resolved. # Bilateral airspace opacities/multifocal pneumonia -??Respiratory support with LFNC PRN; currently on RA - Antibiotics: zosyn for pneumonia, stopped per ID - Fungitell and Fungal Cx positive, no change in management at this time per ID - CT Chest showed persistent pneumonia; ID followed, patient completed course of antibioitics ?? Cardiac: # Distributive Shock # NSTEMI Type I vs Type II # HFrEF (EF 25%) # C/f Stress Cardiomyopathy - Will not perform LHC given results of CTA coronary arteries. - ASA 81mg, Plavix 75mg, stopped today given low suspicion for CAD. - initially Losartan 25mg daily, now on entresto - Metoprolol 25mg daily, starting 08/30 as tartrate for Dobhoff - Spironolactone 12.5mg QD (held starting 08/30 in setting of NPO status) - Start entresto 24-26mg as part of GDT - Start empagliflozin 10mg as part of GDT - Continue Lovenox - Mg >1, K >4 ?? GI: # GERD c/b Farrell's esophagus & esophagitis # Constipation- resolved # Rectal wall edema 2/2 stool ball - Has Miralax, senna, dulcolax PRN ordered - Continue home pantoprazole 40 BID ?? Endocrine: # Insulin-dependent diabetes -??Diabetes Management consulted, appreciate recs - Continue Glargine 23u daily UNTIL 08/31 - hypoglycemic in AM intermittently, changed to 20u 08/31 -??Humalog 75/25 30 units before tube feeds. - Moderate SSI ?? Hematology/oncology: # Mixed JERRICA and ACD - Oral iron supplementation started 08/21. - Ferritin, Iron, TIBC resulted; mixed picture - Transfuse for Hb <8 - S/p 1u pRBC 08/22 ?? Infectious disease:?? # Septic shock # Bilateral airspace opacities/multifocal pneumonia # L Hip Fluid Collection # Subcentimeter left posterior upper lobe cavitary lesions - Infectious work-up initially did not yield any clear causative organisms - S/p BAL 08/21 without any growth to date. - IR, orthopedic surgery consulted for evaluation of L hip fluid collection. No intervention/drainable target. - Stopped zosyn as per ID (08/14- 08/23) - Fungal testing positive no change in management at this time per ID #Housekeeping: DVT PPx: LMWH SCD GI PPx: Diet: Sips and Chips (Give Meds) Lines: PICC Line - Double Lumen 08/19/22 1655 basilic vein (medial side of arm), right 5 Fr (Active) Number of days: 12 D/c planning: TBD pending clinical course Code status: Attempt Cardiopulmonary Resuscitation - Inpatient Irwin Jones MD Internal Medicine PGY1 Medicine Team: Jose Juan, Pager #[phone] Date: 09/01/2022 Associated attestation - Tenisha Sandy MD - 09/02/2022 8:51 PM EDT Attending Attestation and Certification Please see Irwin Jones MD's note for details of the patient history of presentation and data. I have discussed, reviewed and agree with the documented History, Physical findings, Assessment and Plan of care. I have examined the patient myself and personally reviewed all studies. In addition, I certify thatI am a D-H credentialed attending provider with admitting privileges and that the patient meets or has met medical necessity to require an inpatient IPI level of care meeting a minimum of two midnights or is on the [facility] inpatient only procedure list (status C) due to: acute metabolic encephalopathy,management of nstemi/stress cardiomyopathy, s/p treatment of sepsis. Also management of IV fluids as patient is not able to tolerate any PO intake. * Mirella Velazco RN - 09/01/2022 5:55 AM EDT Pt had two noted bradycardic events from HR from 70s to high 30s-low 40s with desaturation events. Regular RR even without dyspnea , recovery to baseline without intervention. Md notified with EKG ordered, no change from previous EKG. Schedule lab work sent down with no change in pt trends. 2L BNC placed and desaturation events improved. Pt occasional removed O2, education provided on importance.No c/o pain. * Elsie Erickson, CELL OPERATION SUPERVISOR - 08/31/2022 3:07 PM EDT Follow Up Diabetes Consult Patient Interview Blood glucose values and insulin use reviewed. Cycled TFs running 6 am to 6pm. Blood sugars are being controlled with a dose of mixed insulin at start of tube feed based on a ICR of 1:4. She required3 units of correction last night. BGs dropped to 88 when no TF on board so lantus further decreasedto 20 units. Her weight based lantus calculates to range of 13 to 23 units. Ishan says the feeds are going well. She is working on some ice [employer]. Objective Temp: [36.5 ??C (97.7 ??F)-37.2 ??C (99 ??F)] Heart Rate: [75-103] Resp: [16-25] BP: (91-114)/(48-71) SpO2: [92 %-97 %] Heart Rate from SpO2: -- Current Regimen from previous note Lantus:Decrease to 23 units Humalog 75/25 mixed insulin 30 units administered 10-15 minutes before starting peptamen AF at 98mls/hr x 12 hours To cover 130 grams carbs in 12 hour cycle Lispro for correction q 4 hours based on a correction factor of 20 Diet sips and chips and Peptamen AF with goal of 98mls/hr Monitoring: Q4 Recent Glucose Levels Recent Labs 08/31/22 1142 08/31/22 0736 08/31/22 0408 08/31/22 0003 08/30/22 1958 08/30/22 1659 08/30/22 1129 08/30/22 0859 08/30/22 0400 08/29/22 2358 08/29/22 2016 08/29/22 1608 POCGLU 163 116 88 98 131 169 168 160 128 155 146 194 ASSESSMENT Ishan Irving is a 62 year old female with a medical history notable for??recent L femoral neck fracture,??bipolar disorder, resolving medication- induced Parkinsonism, insulin-dependent diabetesmellitus,??hx of alcohol use disorder (reported to be in remission for 1.5 years) c/b chronic pancreatitis, iron deficiency anemia,??GERD??c/b??esophagitis &??Farrell's esophagus??presenting in transfer from [facility], suspected to be in cardiogenic shock and found to be in mixed shock with concern for stress cardiomyopathy.??A1C of 6.2% upon admission suggesting an average BG of??131??mg/dL for the past 6-8 weeks. Currently has variability of blood glucose levels while hospitalized requiring adjustment of insulin regimen and DM medications. ?? Peptamen AF TFs continue, now cycled 6am to 6pm. Running currently at 55mls/hr with goal rate 98mls/hr cycled over these 12 hours. Peptamen AF running at 98mls/hr (112 CHO per 1000cc) delivers 10.9 grams carbs/hr and 131 grams carbs over a 12 hour period of time. Humalog 75/25 mixed insulin 30 units (based on ICR 4) is being administered 10-15 minutes before start of feed to cover the carbohydrates in the 12 hour cycle of feed. She is still requiring between 1-3 units of correction insulin. Lantus decreased slightly with evidence of lower BGs when TFs not running, may need to be decreased further and if she requires additional correction overnight, mixed insulin dose should be increased to a ddress corrections. ?? PLAN Lantus: 20 units Humalog 75/25 mixed insulin 31 units administered 10-15 minutes before starting peptamen AF at 98mls/hr x 12 hours To cover 130 grams carbs in 12 hour cycle Lispro for correction q 4 hours based on a correction factor of 20 Diet sips and chips and Peptamen AF with goal of 98mls/hr Monitoring: Q4 Elsie Erickson APRN [facility] Endocrinology Diabetes Management Pager [phone] 20 minutes of this 35 minute visit was spent reviewing diabetes and treatment plan, reviewing all glucose and insulin data as well as relevant laboratory results with the patient, and coordination ofcare on the inpatient unit including nursing and primary team. * Petty Mccullough, GAS STATION SUPERVISOR - 08/31/2022 10:16 AM EDT Speech-Language Pathology Modified Barium Swallow Evaluation Patient Profile:??Ishan Irving is a 62 year old female with a medical history notable for??recent L femoral neck fracture,??bipolar disorder, resolving medication-induced Parkinsonism, insulin-dependent diabetes mellitus,??hx of alcohol use disorder (reported to be in remission for 1.5 years)c/b chronic pancreatitis, iron deficiency anemia,??GERD??c/b??esophagitis &??Farrell's esophagus??presenting in transfer from [facility]??on 08/14/2022, suspected to be in cardiogenic shock and found to be in mixed shock with concern for stress cardiomyopathy.??GAS STATION SUPERVISOR service was consulted to assess oropharyngeal swallow function post-extubation. Service continues to follow for dysphagia. Prior Level of Swallow Function: Concern for regurgitation and aspiration prior to admission, knownhx of Farrell's esophagus and GERD. Pt was pending barium swallow prior to admission as well. Reason for Testing: Concern for oropharyngeal dysphagia Previous Instrumental Swallow Testing (MBSS/FEES?): None noted in record Subjective: Doing fine. Reports feeling fatigued today, good participation in study but did demonstrate delayed auditory processing and no spontaneous verbalizations. Objective: Pt seen for evaluation today. Radiologist was present for entire study. Pain: Denies Current Diet: NPO, DHT present in R nare Feeding / Oral Care Status: Pt is dependent Cognitive-Linguistic Status: Delayed processing Respiratory Status: Room air Positioning: Sitting in Haustead chair at approximately 85 degrees hip flexion. Oral / Laryngeal Mechanism Clinical Assessment: Lingual: Generalized weakness Labial: Mildly reduced seal with spoon Velar: DNT Sensation: Intact with aspiration of thin liquids Vocal fold function: Decreased vocal volume, mild hoarseness, no wet vocal quality at rest Mucosa: WFL Dentition: WFL Bolus Presentation(s): (all mixed with Barium) Thin liquids by single cup, by straw with attempted chin tuck. [place] consistency thickened liquid by spoon x1, by cup x1, by straw x1 Puree x2 Solids and tablet not trialed for Pt safety Oral Preparatory Phase Lip closure: No labial escape Tongue control during bolus hold: Cohesive bolus between tongue to palatal seal with liquids, sub-lingual loss with purees Bolus preparation/mastication: DNT solid for safety d/t deep penetration with purees Bolus transport/Lingual motion: Slowed tongue motion with some repetitive lingual pumping with purees. Oral residue: Residue collection on oral structures Initiation of pharyngeal swallow: ??? Valleculae: Puree x2 ??? Posterior laryngeal portion of epiglottis: [place]-thick by spoon ??? Pyriform Sinuses: Thin liquids by cup, [place]-thick liquids by strawe ??? Airway: Thin liquids by straw w/ chin tuck Pharyngeal Phase: Soft palate elevation: No bolus between soft palate / pharyngeal wall Laryngeal elevation: Partial superior movement of thyroid cartilage / partial approximation of arytenoids to epiglottic petiole Anterior hyoid excursion: Partial anterior movement Epiglottic movement: Partial inversion, with liquids, negatively affected by DHT. Complete with puree (weighted bolus) Laryngeal vestibule closure: Incomplete; narrow column air / contrast in laryngeal vestibule Pharyngeal stripping wave: Present - diminished Pharyngeal contraction: DNT A/P PE segment opening: Complete distension and complete duration; no obstruction of flow Tongue base retraction: Narrow column of contrast between tongue base and posterior pharyngeal wall Pharyngeal residue: Collection of residue within or on pharyngeal structures. Greatest at valleculae with puree solids x2, did not fully clear with cued f/u swallow. Esophageal Phase: Esophageal clearance upright position: Please see radiology note for review of esophageal phase. Modifications Attempted: Chin tuck: Trialed with thin liquids by straw, Pt with poor utilization of chin forward movement throuhgout swallow sequence Multiple swallows: Cued, decreased but did not fully lear pharyngeal residue. Upper-airway penetration and aspiration tended to occur on pharyngeal residue on subsequent swallows. Volitional cough/throat clear: Effortful, non-productive Aspiration / Penetration Scale Score (RosenStefania galvan et al. Dysphagia, 111995) 1 = no material enters the airway 2 = material enters the airway, does not touch the vocal cords, and is completely ejected 3 = material enters the airway, does not touch the vocal cords, but is not ejected: [place]-thick liquids 4 = material enters the airway, contacts the vocal cords, but is ejected 5 = material enters the airway, contacts the vocal cords, but is not ejected 6 = material enters the airway, passes below the vocal cords, and is ejected 7 = material passes below the vocal cords, is not ejected, but there is effort made to expel material: Thin liquids by straw 8 = material passes below the vocal cords, and there is no attempt to eject it: Puree #2 Dysphagia Outcome Severity Scale (MIGUEL ANGEL): Level 2: Moderately-severe dysphagia: Maximum assistance or use of strategies with partial P.O. only (tolerates at least one consistency safely with total use of strategies) -Severe retention in pharynx, unable to clear or needs multiple cues -Aspiration with two or more consistencies, no reflexive cough, weak volitional cough Education: patient has been briefly educated on results and recommendations, and verbalized fair understanding. Will f/u for further education with family and Pt at later date. Assessment: MBS completed this date revealing: ?? Audible aspiration with thin liquids by straw, cough was ineffective at clearing airway. ?? Silent aspiration with puree solids occurred after the swallow on pharyngeal residue during subsequent follow-up swallow. ?? Moderate pharyngeal residue did not fully clear with strategies, eventually resulted in aspiration. ?? Presence of Dobhoff tube did negatively impact epiglottic inversion and airway protection- however I suspect even with DHT removed Pt would still have impaired pharyngeal clearance and subsequent aspiration. ?? I am hopeful that Pt's swallow function will improve with time + swallow therapy and improvements in physical mobility and cognitive status. At this time, swallow function is very inefficient and Pt requires max assist to use safety strategies. ?? Consider long-term means of nutrition/hydration to provide nutrition during rehab course. GAS STATION SUPERVISOR will f/u for ongoing swallow intervention and therapeutic trials. Barium swallow (esophagram) will be helpful at later date, however Pt is at high potential for aspiration during study d/t positioning requirements for barium swallow. Pt would benefit from skilled GAS STATION SUPERVISOR services to maximize swallow function and safety to address limitations as noted above. Diagnosis: Dysphagia Outcome and Severity Scale (MIGUEL ANGEL): Level 2: Moderate-severe dysphagia Recommendations: Diet: NPO, May offer individual ice chips for pleasure / practice. *Consider long-term means of nutrition/hydration pending Pt/family wishes* PO medications: IV or other alternative means only Aspiration Precautions: ?? Excellent oral care ?? 1:1 assist with ice chips Speech Therapy Goals: (To be met by discharge) Pt will tolerate least restrictive diet without evidence of dysphagia / aspiration. Pt / caregiver will be independent with aspiration precautions, diet modifications, and safe swallowing strategies. Pt will demonstrate effortful swallows with good execution Pt will independently demonstrate lingual, labial, buccal, facial exercises with good execution Pt will maintain hydration / nutrition with optimal safety and efficiency. Plan: Pt unable to give informed agreement with plan at this time due to decreased MS. Thank you for this consult with this patient. Please feel free to page me with any questions or concerns. Petty Mccullough, BRAYDON MS, CCC-GAS STATION SUPERVISOR Pager: [phone] Speech-Language Pathology Inpatient Rehabilitation Department * Gene Young, PT - 08/31/2022 9:30 AM EDT Physical Therapy Note Treatment Number PT: 5 Patient profile: Ishan Irving is a 62 y.o. female admitted on 08/14/2022 with a medical history notable for??recent L femoral neck fracture,??bipolar disorder, resolving medication-induced Parkinsonism, insulin-dependent diabetes mellitus,??hx of alcohol use disorder (reported to be in remission for 1.5 years) c/b chronic pancreatitis, iron deficiency anemia,??GERD??c/b??esophagitis &??Farrell's esophagus??presenting in transfer from [facility], suspected to be in cardiogenic shock and found to be in mixed shock with concern for stress cardiomyopathy. She is s/p ORIF left femoral neck fracture 5 days ago at OSH. Interval History: Swallow study at 11:00 today. Moved to a new room. Social History: single level home w ramp to enter. 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 Pt drives, does all community chores. Does have a RW avail at home which she had been using since ORIF. Fall Hx: Spouse reports that pt slipped in a puddle of water left by the dog which is the cause of her hip fx Precautions/Special Considerations: WBAT L leg, Fall risk, dobhoff Mobility and Positioning Recommendations: ?? Pt. Transfers bed to chair w RW and Ax 2 and fww, ?? Please encourage up to chair for meal times as able. Subjective: Pt not very interactive today. Objective: Patient seen for physical therapy and demonstrated the following: Pain: no pain behaviors, seemed less anxious Vital Signs: stable on room air. ?? Pt was more sleepy today. ?? Ankle pumps, sh ff, SAQ, hip abd with assist performed in supine x 10 reps ?? Supine to sit with only min assist for left leg today and min assist for trunk and cues. ?? Good sitting balance at the EOB. ?? Mod assist needed to scoot forward on the bed. ?? Walker was placed in front of pt. ?? She stood to walker with min assist of 2. ?? Pt was able to take a few steps to the cc with fww and cg of 1. She stood a second time for BM clean up. Stood for only about 20 seconds the second time due to fatigue. ?? Pt left in bedside recliner chair, with all needs met, with call marshall in reach and with family at the bedside following visit. Education: Pt edu re: goals of rx, activity progression Assessment: Ishan Irving was seen today for physical therapy treatment session for continuation of POC. Pt was more tired today, but following commands and able to participate. Decreased assist need for bed mobility and standing. Still needs mod assist to take steps. Good rehab candidate. Pt will benefit from ongoing therapeutic interventions to achieve therapy goals. Discharge Recommendations: Based on the current findings, Anticipated Discharge Disposition (PT): swing bed rehabilitation facility when medically ready for hospital discharge. Consult Recommendations: No other consults recommended at this time. Equipment needs: none Anticipated Equipment Needs at Discharge (PT): to be determined Physical Therapy Goals: ongoing To be achieved by 09/07/22: ?? 1. Pt. will demonstrate understanding of appropriate exercises and perform them independently or with family. 2. Pt. will perform bed mobility with modified independence. 3. Pt. will perform sit to stand transfers with min A using a front wheeled walker. 4. Pt. will ambulate 10 feet with mod A using a a front wheeled walker. Pt. will ascend/descend step/stairs sufficient for home using rail and assist of 1 Plan: Therapy Frequency (PT): 2-4 times/wk for skilled PT rx as outlined in initial evaluation. Patient agrees with plan as stated. Time IN / OUT: 930-10 Total Minutes, Physical Therapy: 25 Billing Code: TA x 2 GENE YOUNG, PT Pager: [phone] Physical Therapy Inpatient Rehabilitation Department * Nancy Ernst, RD - 08/31/2022 8:21 AM EDT Nutrition Progress Note Ishan Irving is a 62 y.o.??female??with h/o bipolar, DM, EtOH, esophagitis, who presented to [facility] 3 days ago after being found unresponsive at home.?Patient found to have likely pneumonia +/- aspiration, newly reduced EF. Reason for Assessment: Follow-up, Tube Feeding Nutrition Recommendations: Enteral Nutrition: Cyclic Peptamen AF at 110ml/hr for 12hrs from [id number] At goal, this will provide: Peptamen AF Total Volume Per Day: 1320 mL Scoops of Protein: 0 Calories per Day: 1584 Protein per Day: 100 g Free Water mL per Day: 1072 % RDI: 106 % Monitor hydration status on above TFs as they are concentrated. Pt may need additional fluids depending on IVFs, med flushes, p.o. Intake, etc. Diet per GAS STATION SUPERVISOR Monitor weight to trend Monitor BM. Goal of one every 24-48hrs while on EN Monitor lytes. Replete as indicated I was able to discuss plan with provider Medicine Jose Jaun Jones MD. Current Nutrition Regimen: Active Orders Diet Sips and Chips (Give Meds) Frequency: Effective Now Number of Occurrences: Until Specified All Active TF Orders: Tubefeeding Orders (From admission, onward) Start Dose/Rate Route Frequency Ordered Stop 08/27/22 1200 tube feeding diet 1,176 mL 98 mL/hr Per NG tube Cyclic-(Tube feed) 08/27/22 1042 Average tube feeding provision over past 3 days; 1669mL vs daily goal volume of 1176 formula (>100% of goal) Tolerance or barriers to meeting needs: tolerating so far Assessment: Lab Results Component Value Date NA 140 08/30/2022 K 4.1 08/30/2022 CL 104 08/30/2022 CO2 28 08/30/2022 BUN 19 (H) 08/30/2022 CREATININE 0.50 (L) 08/30/2022 ESTGFR 106 08/30/2022 MAGNESIUM 0.81 08/31/2022 CALCIUM 9.4 08/30/2022 PHOS 3.4 08/31/2022 AST 39 (H) 08/20/2022 ALT 20 08/20/2022 ALKPHOS 213 (H) 08/20/2022 BILITOT <0.2 (L) 08/20/2022 BILIDIR 0.1 08/20/2022 TRIG 127 08/29/2022 CRP 19.4 (H) 08/21/2022 HA1C 6.2 (H) 08/15/2022 25OHVITD 12 (L) 08/24/2022 IRON 25 (L) 08/21/2022 Lab Results Component Value Date POCGLU 163 08/31/2022 POCGLU 116 08/31/2022 POCGLU 88 08/31/2022 POCGLU 98 08/31/2022 POCGLU 131 08/30/2022 POCGLU 169 08/30/2022 Patient Lines/Drains/Airways Status Active Nutritional LDAs Name Placement date Placement time Site Days Naso/Oral Tube 08/17/22 1142 small bore weighted (Dobhoff) right nostril 08/17/22 1142 right nostril 14 PICC Line - Double Lumen 08/19/22 1655 basilic vein (medial side of arm), right 5 Fr 08/19/22 1655 -- 12 External Catheter 08/23/22 1100 08/23/22 1100 -- 8 Physical Findings Gastrointestinal: feeding tube Tubes: nasogastric tube Oxygen Therapy / Airway Device: None (Room air) Shift Pressure Injury Prevention Occiput: No Injury Thoracic Spine: No Injury Sacral: Redness, Blanchable Ischial - left: No Injury Ischial - right: No Injury Heel - left: No Injury Heel - right: No Injury Elbow - left: No Injury Elbow - right: No Injury Device Sites: O2 sat monitor, ECG Leads, IV sites, NGT Other Sites: ID band Last Bowel Movement: 08/30/22 Intake/Output Summary (Last 24 hours) at 08/31/2022 1257 Last data filed at 08/31/2022 1200 Gross per 24 hour Intake 200 ml Output 1300 ml Net -1100 ml Relevant medications: lovenox, Vit D2, ferrous sulfate, folic acid, glargine, lispro, protonix, thamine, others noted Anthropometrics: Admit Weight: 69 kg Estimated body mass index is 29.16 kg/m?? as calculated from the following: Height as of 08/19/22: 152.4 cm (5'). Weight as of this encounter: 67.7 kg (149 lb 4.8 oz). [place] Body Weight (IBW) (kg): 45.45 Usual Body Weight: 70.3 kg (155 lb) Wt Readings from Last 10 Encounters: 08/31/22 67.7 kg (149 lb 4.8 oz) 08/19/22 73.1 kg (161 lb 2.5 oz) 07/03/22 69.9 kg (154 lb) 03/31/22 74.4 kg (164 lb) 02/12/22 78.7 kg (173 lb 9.6 oz) 09/23/21 78.5 kg (173 lb) 03/01/20 79.4 kg (175 lb) 11/22/18 80.3 kg (177 lb) 12/13/14 86.5 kg (190 lb 12.8 oz) 03/20/14 94 kg (207 lb 3.7 oz) Patient Vitals for the past 168 hrs: Weight 08/31/22 0600 67.7 kg (149 lb 4.8 oz) 08/30/22 0600 67.8 kg (149 lb 6.4 oz) 08/29/22 0451 70.4 kg (155 lb 3.2 oz) 08/27/22 0512 69.6 kg (153 lb 6.4 oz) 08/26/22 0500 71.5 kg (157 lb 11.2 oz) 08/25/22 0600 70 kg (154 lb 5.2 oz) Weight Source: Bed Estimated / Assessed Needs: Fluid Requirements (mL/day): 2562 mL Shine-Cookie Kcal / K - 1737.5 Kcal (20 Kcal/Kg - 25 Kcal/Kg) Estimated Protein Needs: 83.4 - 104.25 g (1.2 g/Kg - 1.5 g/Kg) Nutrition intake and intake history / interview: 08/31: Pending MBS results diet will advance or will continue w/ TF. No intolerance noted and pt notcurrently experiencing hunger. Wt trending down, below admit wt and UBW, will increase TF provision. 4/20: Pt had 7 BM on 08/25 r/t liquid tylenol, d/c per this proposal lead writer's request as liquid tylenol acts as a purgative. BM have slowed and formed since then. Adjusted EN to allow for pt to lay flat at night and increased kcal as pt is now floor status. 08/24: Phos continues to trend low but above 2.0. Pt reports no feelings of hunger at this time, will continue EN at current rate. Wt trending down, but appears consistent w/ wts from 06/2022. Pt does have some wt loss since 02/2022 but is not clinically significant. Will continue to monitor. 08/21: Phos continues to trend low but above 2.0 today (2.4). More responsive than in previous days,but still intubated. Attempting SBT today. Wt relatively stable at this time. Had 1st BM since admit 08/20, will continue to monitor BM and consistency. If stool remain liquid should dc liquid tylenolas it can cause loose stools. 08/18: Phos <2.0 since 08/18 w/ 60mmol of repletion since then, phos 1.4 this AM. EN advanced to goal this AM w/o signs of intolerance. Wt up 4kg since admission and intermittently receiving diuretics, -0.5L since admission 08/17: TF recs as above. Nutrition Focused Physical Exam: Not performed Malnutrition Diagnosis: Not identified (Andrea, JPEN J Parenteral Enteral Nutr. 2011; 36(3): 273-83) Nutrition to continue to follow up while inpatient Nancy Ernst RD Pager #:[phone] * Irwin Jones MD - 08/31/2022 7:09 AM EDT Images from the original note were not included. Inpatient Hospital Medicine Progress Note 08/31/2022 Patient Name: ISHAN IRVING Date of : 1960 Age: 62 y.o. Hospital Admit Date: 08/14/2022 Hospital Day: 17 Inpatient Attending: Alfonso Navarrete MD PCP: Chris Stanley APRN ([phone]) No chief complaint on file. ID: Ishan Irving is a 62 y.o. 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.5 years) c/b chronic pancreatitis, iron deficiency anemia, ??GERD??c/b??esophagitis &??Farrell's esophagus, who was admitted to [facility] on 08/14/2022 (now on Hospital Day #17), and transferred to Hospital Medicine team from Cardiology on 08/30 for mixed shock with concern for stress cardiomyopathy (Takotsubo Cardiomyopathy). 24 HOUR EVENTS & SUBJECTIVE: Yesterday: - Patient transferred from [facility] as cardiomyopathy is now stabilized on goal directed therapy - Patient, per [employer] eval, is strict NPO given HIGH concern for aspiration (what may have precipitated hospitalization) - Dobhoff in place, can't crush spirinolactone, will hold for now as EF on last TTE (08/19) > 30 (32%) - Can obtain liquid aldactone if patient begins to worsen - metoprolol succinate converted to split BID tartrate - MBS planned - hopefully today Overnight: - NAEO - Repleted mag with 2gm IV at shift change as goal >1 Today AM: pt reports the following: Patient reports overall feeling okay with no acute concerns today, though provides minimal history without direct prompting. Denies fever, chills, myalgias, arthralgias, pain (though ng tube is notedto be uncomfortable). No other acute concerns today. OBJECTIVE: Vitals: Last value Range last 24 hrs Temperature Temp: 36.5 ??C (97.7 ??F) Temp: [36.2 ??C (97.2 ??F)-37.2 ??C (99 ??F)] Heart Rate Heart Rate: 90 Heart Rate: [71-91] Blood Pressure BP: 98/57 BP: (93-115)/(48-71) Art Line BP BP (Arterial Line): 111/70 BP (Arterial Line): -- MAP (NBP): [62 mmHg-86 mmHg] Respiratory Rate Resp: 18 Resp: [16-18] SpO2 SpO2: 95 % SpO2: [92 %-97 %] Oxygen Delivery Oxygen Therapy O2 Device: None (Room air) O2 Flow Rate (L/min): 3 L/min FiO2 (%): 21 % Reason for Oxygen: Patient currently on room air Intake/Output Summary (Last 24 hours) at 08/31/2022 0709 Last data filed at 08/31/2022 0600 Gross per 24 hour Intake 675 ml Output 1700 ml Net -1025 ml I/O last 3 completed shifts: In: 675 [Other:200; NG/GT:474; IV Piggyback:1] Out: 2350 [Urine:2350] Last Bowel Movement: 08/30/22 Body mass index is 29.16 kg/m??. Patient Vitals for the past 168 hrs: Weight 08/31/22 0600 67.7 kg (149 lb 4.8 oz) 08/30/22 0600 67.8 kg (149 lb 6.4 oz) 08/29/22 0451 70.4 kg (155 lb 3.2 oz) 08/27/22 0512 69.6 kg (153 lb 6.4 oz) 08/26/22 0500 71.5 kg (157 lb 11.2 oz) 08/25/22 0600 70 kg (154 lb 5.2 oz) Admit wt: 69 kg Physical Exam: GENERAL: Awake, mildly somnolent, no acute distress, dobhoff in place w/well- fitting bridle HEENT: Anicteric, no conjunctival injection CV: RRR, no murmurs/rubs/gallops, 2+ radial/DP pulses PULM: Normal respiratory effort, CTA with good air entry bilaterally, coarse bibasilar breath sounds improved versus yesterday ABDOMEN: Soft, non-tender, non-distended, no masses, no guarding EXTREMITIES: No lower extremity edema. No clubbing or cyanosis PSYCH/NEURO: flattened affect and intact cognition, no tremor, minimal cogwheeling UEs SKIN: Warm, dry, no rashes LABS: CBC: Recent Labs 08/31/22 0430 08/30/22 0405 08/29/22 0930 08/28/22 0700 08/27/22 0540 WBC 6.7 7.0 7.5 9.0 9.5 HGB 8.7* 8.4* 8.7* 8.6* 8.6* HCT 29.2* 27.8* 28.5* 27.4* 27.7* PLATELET 330 407* 448* 464* 528* NEUTROABS 4.03 4.26 5.42 5.85 6.61* Chemistry: Recent Labs 08/30/22 0405 08/29/22 0930 08/28/22 0700 08/27/22 1800 08/27/22 1355 08/27/22 0950 08/27/22 0540 08/26/22 0022 NA 140 137 141 -- -- -- 139 137 K 4.1 4.4 4.2 4.0 4.3 < > 4.4 4.0 CL 104 103 105 -- -- -- 106 105 CO2 28 25 27 -- -- -- 27 25 BUN 19* 19* 15 -- -- -- 15 12 CREATININE 0.50* 0.47* 0.46* -- -- -- 0.44* 0.38* GLUCOSE 133 289* 113 -- -- -- 130 195 ANIONGAP 8 9 9 -- -- -- 6 7 < > = values in this interval not displayed. Recent Labs 08/31/22 0430 08/30/22 0405 08/29/22 0930 08/28/22 0700 08/27/22 0540 08/26/22 0022 CALCIUM -- 9.4 9.2 9.4 9.3 9.0 MAGNESIUM 0.81 0.90 0.81 0.87 0.85 0.76 PHOS 3.4 3.7 3.4 4.6* 3.7 2.8 LFT's: Recent Labs 08/20/22 1400 08/15/22 0950 08/15/22 0305 BILITOT <0.2* <0.2* 0.2 BILIDIR 0.1 0.1 0.1 ALBUMIN 2.5* 2.4* 2.4* ALKPHOS 213* 102 99 ALT 20 12 13 AST 39* 21 25 Coags: No results for input(s): PT, INR, PTT, FIBRINOGEN, DDIMER in the last 168 hours. Invalid input(s): THROMBIN TIME No results for input(s): INR in the last 168 hours. Cardiac enzymes: Recent Labs 08/19/22 0120 08/14/22 2355 CK 32 -- PROBNP -- >35,000* Endocrine: Recent Labs 08/20/22 1400 08/15/22 0000 TSH 1.90 0.28 Recent Labs 08/15/22 0305 HA1C 6.2* CRP, Sed Rate Recent Labs 08/21/22 1200 CRP 19.4* SEDRATE >119* Lipids: Lab Results Component Value Date CHLPL 110 08/29/2022 HDL 34 08/29/2022 CHOLHDL 3.2 08/29/2022 TRIG 127 08/29/2022 LDLCHOL 51 08/29/2022 Heme: No results for input(s): LDH, HAPTOGLOBIN, URICACID in the last 168 hours. ABG (Arterial Blood Gas): No results found for: PHART, PO2ART, UHF2SOC, GEW2ODP VBG (Venous Blood Gas): No results for input(s): PHVEN, KEH6SEG, PO2VEN, QJA0VLX, BEVEN, TYT8QDM in the last 72 hours. EKG: Lab Results Component Value Date/Time DIAGLINE 08/16/2022 0324 Normal sinus rhythm Low voltage QRS T wave abnormality, consider inferior ischemia T wave abnormality, consider anterolateral ischemia Abnormal ECG When compared with ECG of 15-AUG-2022 07:36, No significant change was found Confirmed by MD Ty, Jagdeep Gamble ([id number]) on 08/16/2022 11:52:27 AM QTCCALC 454 08/16/2022 0324 Vascular: No results found for: VBTEXTRPT Microbiology: Date Type Result Lab Results Component Value Date/Time URINECULTURE 1,000-9,000 cfu/ml Insignificant growth 08/15/2022 1225 Lab Results Component Value Date/Time GRAMSTAIN 08/21/2022 1650 Few Neutrophils seen No squamous epithelial cells seen No microorganisms seen. GRAMSTAIN 08/21/2022 1645 Moderate Neutrophils seen No squamous epithelial cells seen No microorganisms seen. GRAMSTAIN 08/19/2022 1451 Many Neutrophils seen Few squamous epithelial cells seen No microorganisms seen. LOWERRESPCX 08/21/2022 1650 Rare mixed bacterial morphotypes suggestive of normal upper respiratory wiley Lab Results Component Value Date/Time BLOODCX No growth at 5 days. 08/19/2022 1720 BLOODCX No growth at 5 days. 08/19/2022 1330 BLOODCX No growth at 5 days. 08/15/2022 0110 BLOODCX No growth at 5 days. 08/14/2022 2355 Microbiology Results (Last 30 days) Procedure Component Value Units Date/Time Lower Respiratory Culture Bronchial Alveolar Lavage [[id number]] Collected: 08/21/221649 Lab Status: Final result Specimen: Bronchial Alveolar Lavage Updated: 08/23/22 0741 Lower Respiratory Culture Rare mixed bacterial morphotypes suggestive of normal upper respiratory wiley Gram Stain -- Few Neutrophils seen No squamous epithelial cells seen No microorganisms seen. Fungus Culture & Calc Stain Bronchial Alveolar Lavage [[id number]] (Abnormal) Collected: 08/21/221649 Lab Status: Preliminary result Specimen: Bronchial Alveolar Lavage Updated: 08/24/22 145 AFB culture Bronchial Alveolar Lavage [[id number]] Collected: 08/21/221649 Lab Status: Preliminary result Specimen: Bronchial Alveolar Lavage Updated: 08/24/22 221 Acid Fast Bacilli Culture -- No Acid Fast Bacilli isolated to date If active tuberculosis is suspected, the patient should be on [employer] PRECAUTIONS. Call Infection Prevention for assistance if needed. Acid Fast Stain No Acid Fast Bacilli seen Fungus culture [[id number]] (Abnormal) Collected: 08/21/221649 Lab Status: Preliminary result Specimen: Bronchial Alveolar Lavage Updated: 08/24/22 145 Fungus Culture Rare Jacky albicans Calcofluor White Stain [[id number]] Collected: 08/21/221649 Lab Status: Final result Specimen: Bronchial Alveolar Lavage Updated: 08/21/22 2016 Calcofluor Stain Calcofluor White Preparation: Negative Lower Respiratory Culture Bronchial Alveolar Lavage [[id number]] Collected: 08/21/221644 Lab Status: Final result Specimen: Bronchial Alveolar Lavage Updated: 08/23/22 0741 Lower Respiratory Culture Rare mixed bacterial morphotypes suggestive of normal upper respiratory wiley Gram Stain -- Moderate Neutrophils seen No squamous epithelial cells seen No microorganisms seen. Fungus Culture & Calc Stain Bronchial Alveolar Lavage [[id number]] (Abnormal) Collected: 08/21/221644 Lab Status: Preliminary result Specimen: Bronchial Alveolar Lavage Updated: 08/24/22 145 AFB culture Bronchial Alveolar Lavage [[id number]] Collected: 04/14/23 1645 Lab Status: Preliminary result Specimen: Bronchial Alveolar Lavage Updated: 08/24/22 2221 Acid Fast Bacilli Culture -- No Acid Fast Bacilli isolated to date If active tuberculosis is suspected, the patient should be on [employer] PRECAUTIONS. Call Infection Prevention for assistance if needed. Acid Fast Stain No Acid Fast Bacilli seen Fungus culture [[id number]] (Abnormal) Collected: 08/21/22 1645 Lab Status: Preliminary result Specimen: Bronchial Alveolar Lavage Updated: 08/24/22 1453 Fungus Culture Rare Jacky albicans Calcofluor White Stain [[id number]] Collected: 08/21/22 164 Lab Status: Final result Specimen: Bronchial Alveolar Lavage Updated: 08/21/22 2017 Calcofluor Stain Calcofluor White Preparation: Negative Blood culture [[id number]] Collected: 08/19/22 1720 Lab Status: Final result Specimen: Blood Updated: 08/24/22 2301 Blood Culture No growth at 5 days. Lower Respiratory Culture Sputum Induced [[id number]] Collected: 08/19/22 1451 Lab Status: Final result Specimen: Sputum Induced Updated: 08/21/22 0948 Lower Respiratory Culture Rare mixed bacterial morphotypes suggestive of normal upper respiratory wiley Gram Stain -- Many Neutrophils seen Few squamous epithelial cells seen No microorganisms seen. Blood culture [[id number]] Collected: 08/19/22 1330 Lab Status: Final result Specimen: Blood Updated: 08/24/22 1501 Blood Culture No growth at 5 days. Legionella Urinary Antigen [[id number]] Collected: 08/18/22 1013 Lab Status: Final result Specimen: Urine Updated: 08/18/22 2252 Legionella Urinary Antigen Negative Comment: A negative Legionella Urinary Antigen by EIA suggests no recent or current infection with L. pneumophila Serogroup 1. Antigen may not be present in urine in early infection, and the level of antigen present in the urine may be below the detection limit of the test. Sensitivity: 95% Specificity 95%. Urine culture Indwelling Catheter Urine; Other; sepsis, bacteria on UA [[id number]] Collected: 08/15/22 1225 Lab Status: Final result Specimen: Indwelling Catheter Urine Updated: 08/16/22 0804 Urine Culture 1,000-9,000 cfu/ml Insignificant growth COVID-19 PCR [[id number]] Collected: 08/15/22 1150 Lab Status: Final result Specimen: Nasopharyngeal Swab Updated: 08/15/22 1501 SARS-CoV-2 RNA PCR Not Detected Comment: This result should be interpreted in combination with the clinical observations, patient history and epidemiological information. For testing of asymptomatic individuals, assay performance characteristics and clinical utility have not been evaluated. Testing for SARS-CoV-2 (Severe acute respiratory syndrome coronavirus 2, formerly known as 2019 novel coronavirus or 2019-nCoV) to aid in the diagnosis of COVID-19 is performed using the Simplexa COVID-19 Direct Assay by [employer] as authorized by the FDA issued Emergency Use Authorization (EUA). This assay is intended for In-vitro Diagnostic (IVD) use with nasopharyngeal swabs collected from individuals meeting the CDC criteria for testing. The assay is performed based on the instructions for use and additional guidance provided by the FDA. Testing is performed in the Microbiology Laboratory within the Department of Pathology and Laboratory Medicine at [facility], certified under the Clinical Laboratory Improvement Amendments of 1988 (CLIA), 42 U.S.C. section 263a, to perform high complexity tests. Assay performance has been verified according to clinical laboratory regulatory requirements. Test results are provided above. A result of Not Detected indicates that the viral RNA target is not present but does not preclude SARS-CoV-2 infection. False negative results may occur if a specimen is improperly collected, transported or handled; if amplification inhibitors are present; or if inadequate numbers of viral particles are present in the specimen. A result of Detected suggests a current or recent infection and the patient is presumed to be infected. Positive and negative predictive values for this test are highly dependent on disease prevalence. A result of Invalid indicates the inability to conclusively determine the presence or absence of SARS-CoV-2 RNA in the sample which can be due to a variety of factors. Recollection is recommended in the case of an invalid result. CDC COVID-19 criteria for testing on human specimens and clinical management guidance information are available at the CDC Coronavirus Disease 2019 (COVID-19) webpage under Information for Healthcare Professionals (https://www.cdc.gov/coronavirus/2019-ncov/hcp/index.html). Additional information about this and other EUA tests can be found in provider and patient fact sheets at the following FDA website: https://www.fda.gov/medical-devices/pdwpyyucuri-vwxwrkk-1502-fgbmr-80-blnwosqav- tvu-hctwxudcdrctrd-ngsjova-devices/wzbfm-fndbkocdovs-zpzn SARS-CoV-2 Source [employer] Swab Lower Respiratory Culture Sputum Induced [[id number]] Collected: 08/15/22 0740 Lab Status: Final result Specimen: Sputum Induced Updated: 08/17/22 1015 Lower Respiratory Culture Rare normal upper respiratory wiley Gram Stain -- Many Neutrophils Few squamous epithelial cells Rare mixed bacterial morphotypes suggestive of normal upper respiratory wiley Blood culture [[id number]] Collected: 08/15/22 0110 Lab Status: Final result Specimen: Blood Updated: 08/20/22 0701 Blood Culture No growth at 5 days. MRSA PCR Screen ([facility]/CGP/APD/NLH) [[id number]] Collected: 08/15/22 0050 Lab Status: Final result Specimen: Nasopharyngeal Swab Updated: 08/17/22 1419 MRSA Result Negative MRSA Interp -- Methicillin-resistant Staphylococcus aureus (MRSA) is NOT DETECTED The MRSA target DNA sequences (mec and SCC) were not detected within the acceptable ranges using the Xpert MRSA NxG on the GeneXpert Dx System ([employer]). This suggests the absence of MRSA in the patient specimen submitted for testing. This test is cleared by the U.S. Food and Drug Administration for clinical use and its performance characteristics have been verified by the [facility] at [facility]. This result does not rule out the presence of any other organisms. Rare false negative results may occur if MRSA is present at low concentrations with much higher concentrations of other organisms including MRSE or S. aureus with an empty SCC cassette. Comment: [VERIFIED DATE]08.17.22 Verified By:Shannon Smiley (Electronic Signature) Blood culture [[id number]] Collected: 08/14/22 8585 Lab Status: Final result Specimen: Blood Updated: 08/20/22700 Blood Culture No growth at 5 days. Imaging/Diagnostics: Results for orders placed or performed during the hospital encounter of 08/14/22 XR Chest One View (Exam End: 08/15/2022 1:00 AM) Impression FINDINGS/IMPRESSION: * Moderate pulmonary edema. * No confluent airspace opacity otherwise seen. * Cannot exclude small pleural effusions. * Cardiomediastinal contours appear within normal limits. * Endotracheal tube tip projects 3.8 cm above the consuelo. * RIGHT neck central catheter, distal catheter coiled over the region of the RIGHT ventricle and pulmonary trunk. Thank you for letting us participate in the care of this patient. If you are a health care provider and have any questions regarding this report, please contact the number below. For patients who have questions please contact the health acute care physician that requested your imaging first. Abdomen 1 view (Generic) (Exam End: 08/15/2022 8:33 AM) Impression The enteric tube sidehole is not definitively subdiaphragmatic. Recommend advancement. Preliminary report signed by: Carlos Wolff at 08/15/2022 9:00 AM I have personally reviewed the image(s) and the resident's interpretation and agree with the findings, Liliane Adams MD at 08/15/2022 9:05 AM Thank you for letting us participate in the care of this patient. If you are a health care provider and have any questions regarding this report, please contact the number below. For patients who have questions please contact the health acute care physician that requested your imaging first. Electronically signed by: Liliane Adams MD, [facility] ([phone]), at 08/15/2022 9:05 AM XR Chest One View (Exam End: 08/15/2022 1:14 AM) Impression FINDINGS/IMPRESSION: * RIGHT neck central catheter redemonstrated terminating over the region of the pulmonary trunk, now uncoiled distally although the tip is looped. * Moderate pulmonary edema redemonstrated. * ET tube projects similar. Thank you for letting us participate in the care of this patient. If you are a health care provider and have any questions regarding this report, please contact the number below. For patients who have questions please contact the health acute care physician that requested your imaging first. Abdomen 1 view (Generic) (Exam End: 08/15/2022 6:38 AM) Impression Nonspecific/nondiagnostic appearance of the abdomen, with large stool burden in the RIGHT hemiabdomen and pelvis. Thank you for letting us participate in the care of this patient. If you are a health care provider and have any questions regarding this report, please contact the number below. For patients who have questions please contact the health acute care physician that requested your imaging first. Chest One View (Exam End: 08/16/2022 10:31 AM) Impression PA catheter has a persistent loop near the tip, similar to the prior comparison study. Improved pulmonary edema. Thank you for letting us participate in the care of this patient. If you are a health care provider and have any questions regarding this report, please contact the number below. For patients who have questions please contact the health acute care physician that requested your imaging first. Electronically signed by: Alfonso Adams MD, [facility] ([phone]), at 08/16/2022 10:[address] Head wo Contrast (Generic) (Exam End: 08/16/2022 10:44 PM) Impression No acute intracranial abnormality and no change from prior Thank you for letting us participate in the care of this patient. If you are a health care provider and have any questions regarding this report, please contact the number below. For patients who have questions please contact the health acute care physician that requested your imaging first. Electronically signed by: Moustapha Correa MD, [facility] ([phone]), at 08/16/2022 11:19 PM XR Abdomen 1 view (Generic) (Exam End: 08/17/2022 12:09 PM) Impression Status post Dobbhoff tube placement with catheter tip terminating at the approximate position of greater curvature. I have personally reviewed the image(s) and the resident's interpretation and agree with the findings, Jenn Pina MD at 08/17/2022 2:31 PM Thank you for letting us participate in the care of this patient. If you are a health care provider and have any questions regarding this report, please contact the number below. For patients who have questions please contact the health acute care physician that requested your imaging first. Head wo Contrast (Generic) (Exam End: 08/18/2022 3:14 PM) Impression No acute intracranial process. Thank you for letting us participate in the care of this patient. If you are a health care provider and have any questions regarding this report, please contact the number below. For patients who have questions please contact the health acute care physician that requested your imaging first. Electronically signed by: Antonio Jordan MD, [facility] ([phone]), at 08/18/2022 3:18 PM XR Chest One View (Exam End: 08/19/2022 12:30 PM) Impression 1. Increased bibasilar airspace opacities compared to radiograph 08/16/2022, concerning for an infectious/inflammatory process. A component of edema not excluded. 2. Overall decreased pulmonary edema. I have personally reviewed the image(s) and the resident's interpretation and agree with the findings, Alan De Guzman MD at 08/19/2022 3:14 PM Thank you for letting us participate in the care of this patient. If you are a health care provider and have any questions regarding this report, please contact the number below. For patients who have questions please contact the health acute care physician that requested your imaging first. Electronically signed by: Alan De Guzman MD, [facility] ([phone]), at 08/19/2022 3:14 PM MRI Brain wo Contrast (Exam End: 08/19/2022 10:15 PM) Impression No acute infarction, mass or mass effect. Thank you for letting us participate in the care of this patient. If you are a health care provider and have any questions regarding this report, please contact the number below. For patients who have questions please contact the health acute care physician that requested your imaging first. Chest for Verifying Vascular Access PICC Placement At Bedside (Exam End: 08/19/2022 4:36 PM) Impression PICC tip is in the superior vena cava above the right atrium. Thank you for letting us participate in the care of this patient. If you are a health care provider and have any questions regarding this report, please contact the number below. For patients who have questions please contact the health acute care physician that requested your imaging first. Electronically signed by: Alan De Guzman MD, [facility] ([phone]), at 08/19/2022 4:[address] Hip w Contrast Left (Exam End: 08/20/2022 11:04 PM) Impression 1. Uncomplicated left femoral neck ORIF with unchanged postoperative alignment. 2. Moderate skin thickening and subcutaneous stranding about the lateral left hip with lateral left thigh intramuscular edema and fascial thickening. These findings are nonspecific and may be seen in the routine postoperative setting. Underlying soft tissue infection with infectious or inflammatory myositis may also have this appearance. Correlation with physical examination, clinical symptoms, and laboratory findings is recommended. 3. 2.3 x 1.6 x 1.8 cm focus of more coalescent fluid attenuation centered in the subcutaneous fat of the posterolateral thigh roughly at the level of the proximal femoral fixation screw heads. There is no rim-enhancing to suggest a mature, organized abscess at this time. However, this finding could represent phlegmon in appropriate clinical context, or it could represent a postsurgical collection, the contents of which may be sterile or infected. 4. There is a rectal tube in place. However, there remains a large stool ball in the rectum with free fluid versus coalescent edema on both the anterior and posterior margins of the distended rectum. In appropriate clinical context, these findings could represent proctocolitis or stercoral colitis. I have personally reviewed the image(s) and the resident's interpretation and agree with the findings, Aicha Chowdhury MD at 08/21/2022 9:34 AM Thank you for letting us participate in the care of this patient. If you are a health care provider and have any questions regarding this report, please contact the number below. For patients who have questions please contact the health acute care physician that requested your imaging first. Electronically signed by: Aicha Chowdhury MD, [facility] ([phone]), at 08/21/2022 9:[address] Chest w Contrast (Exam End: 08/20/2022 11:04 PM) Impression 1. Multifocal lower lobe predominant consolidative opacities with additional upper lobe opacities consistent with multifocal pneumonia. Compared to the prior CT of 08/12/2022 the number and size of the opacities has decreased. Recommend follow-up imaging in 3-6 months to document complete resolution. 2. New small, sub-1 cm early cavitation of multiple opacities predominantly within the posterior left upper lobe and left lower lobe. 3. New curvilinear splenic lesions could represent infarct versus late arterial phase splenic arterial opacification. Thank you for letting us participate in the care of this patient. If you are a health care provider and have any questions regarding this report, please contact the number below. For patients who have questions please contact the health acute care physician that requested your imaging first. Hip 2-3 Views Left (Exam End: 08/22/2022 12:19 AM) Impression No radiographic evidence of infection. Thank you for letting us participate in the care of this patient. If you are a health care provider and have any questions regarding this report, please contact the number below. For patients who have questions please contact the health acute care physician that requested your imaging first. Electronically signed by: Viktor Cervantes MD, [facility] ([phone]), at 08/22/2022 12:43 PM XR Pelvis (Generic) (Exam End: 08/22/2022 12:19 AM) Impression No radiographic evidence of infection status post left hip ORIF. Thank you for letting us participate in the care of this patient. If you are a health care provider and have any questions regarding this report, please contact the number below. For patients who have questions please contact the health acute care physician that requested your imaging first. Electronically signed by: Richard Billings MD, [facility] ([phone]), at 08/22/2022 10:[address] Angiogram Coronary Arteries (Exam End: 08/27/2022 8:58 AM) Impression Coronary calcium score of 0, consistent with no detectable calcified atherosclerotic plaque burden. No evidence of stenosing soft plaque on the coronary CT arteriogram. CAD RADS 0 Ongoing bilateral pulmonary infectious/inflammatory changes with persistent consolidative opacity especially in the left lower lobe. This could represent a multifocal pneumonia. Recommend follow-up CT in 3 months to assess for resolution. Thank you for letting us participate in the care of this patient. If you are a health care provider and have any questions regarding this report, please contact the number below. For patients who have questions please contact the health acute care physician that requested your imaging first. Electronically signed by: Arlette Mays MD, [facility] ([phone]), at 08/27/2022 11:[address] Chest wo Contrast (Generic) (Exam End: 08/27/2022 8:58 AM) Impression Stable findings of multifocal pneumonia. No interval abnormality. Thank you for letting us participate in the care of this patient. If you are a health care provider and have any questions regarding this report, please contact the number below. For patients who have questions please contact the health acute care physician that requested your imaging first. Electronically signed by: MINH QUIROGA MD, [facility] ([phone]), at 08/27/2022 10:48 AM Medications: Scheduled: ??? metoproloL tartrate 12.5 mg Oral 2 times per day ??? miconazole Topical (Top) BID ??? insulin glargine (Lantus;Semglee) (100 unit/mL) subcutaneous injection 23 Units Subcutaneous Daily ??? sacubitriL-valsartan 1 tablet Oral BID ??? empagliflozin 10 mg Oral Daily ??? insulin lispro protamine-insulin lispro 75/25 30 Units Subcutaneous Daily ??? valproic acid 300 mg Per NG tube Q6H ??? QUEtiapine 100 mg Oral Nightly ??? lidocaine 3 patch Transdermal Q24H ??? insulin lispro 1-5 Units Subcutaneous Q4H LAZARUS ??? ergocalciferoL (vitamin D2) 50,000 Units Per NG tube Weekly ??? enoxaparin 40 mg Subcutaneous Daily ??? atorvastatin 80 mg Per NG tube QPM ??? folic acid 1,000 mcg Per NG tube Daily ??? ferrous sulfate 300 mg Per NG tube Every Other Day ??? chlorhexidine 15 mL Oral BID ??? pantoprazole 40 mg Intravenous BID ??? sodium chloride 0.9 % (flush) 5 mL Intravenous BID ??? acetaminophen 1,000 mg Oral Q8H LAZARUS ??? thiamine 100 mg Intravenous Daily Continuous: ??? tube feeding diet 1,176 mL (08/31/22 3561) PRN: ondansetron, iohexoL, melatonin, polyethylene glycoL, senna, bisacodyL, potassium chloride in water OR potassium chloride in water OR potassium chloride in water, sodium chloride 0.9 % (flush), lidocaine, nitroGLYcerin, glucose 40% oral geL OR dextrose 10% OR glucagon ASSESSMENT and PLAN: Ishan Irving is a 62 y.o. female w/ PMH of L femoral neck fracture (s/p fixation early August),??bipolar disorder, resolving medication-induced Parkinsonism, insulin-dependent diabetes mellitus,??hx of alcohol use disorder (reported to be in remission for 1.5 years) c/b chronic pancreatitis,iron deficiency anemia,??GERD??c/b??esophagitis &??Farrell's esophagus, who was admitted to [facility] on 08/14/2022 (now on Hospital Day #17) for mixed shock with concern for stress cardiomyopathy (Takotsubo Cardiomyopathy) suspected to have been secondary to large volume aspiration from worsening dysphagia leading to aspiration pneumonia/pneumonitis. 08/31: Patient appears overall clinically similar to yesterday with no significant changes in clinical or cognitive status versus yesterday. Patient demonstrates waxing and waning levels of interaction withmedical staff at bedside, while VPA level is not high will plan to discuss with Psychiatry whether this changing degree of cognition may be due to VPA. Plan to obtain collateral from in days to come. MBS will hopefully be elucidating as to nature of dysphagia. May consider trial of sinemet,however in setting of known history of Bipolar disorder, this would carry high risk for causing manic switch. Today's plan: - TB with Psych regarding VPA level and goal - MBS - reduce glargine to 20 - Consider GI consult Neuro: # Bipolar Disorder - Depakote 300 mg oral liquid per Dobhoff tube q6hr. - Continue Seroquel 100mg nightly - Will check VPA trough level 08/29. 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 ?? Pulmonary: # Acute hypoxic respiratory failure, resolved. # Bilateral airspace opacities/multifocal pneumonia -??Respiratory support with LFNC PRN; currently on RA - Antibiotics: zosyn for pneumonia, stopped per ID - Fungitell and Fungal Cx positive, no change in management at this time per ID - CT Chest showed persistent pneumonia; ID followed, patient completed course of antibioitics ?? Cardiac: # Distributive Shock # NSTEMI Type I vs Type II # HFrEF (EF 25%) # C/f Stress Cardiomyopathy - Will not perform LHC given results of CTA coronary arteries. - ASA 81mg, Plavix 75mg, stopped today given low suspicion for CAD. - initially Losartan 25mg daily, now on entresto - Metoprolol 25mg daily, starting 08/30 as tartrate for Dobhoff - Spironolactone 12.5mg QD (held starting 08/30 in setting of NPO status) - Start entresto 24-26mg as part of GDT - Start empagliflozin 10mg as part of GDT - Continue Lovenox - Mg >1, K >4 ?? GI: # GERD c/b Farrell's esophagus & esophagitis # Constipation- resolved # Rectal wall edema 2/2 stool ball - Has Miralax, senna, dulcolax PRN ordered - Continue home pantoprazole 40 BID ?? Endocrine: # Insulin-dependent diabetes -??Diabetes Management consulted, appreciate recs - Continue Glargine 23u daily UNTIL 08/31 - hypoglycemic in AM intermittently, changed to 20u 08/31 -??Humalog 75/25 30 units before tube feeds. - Moderate SSI ?? Hematology/oncology: # Mixed JERRICA and ACD - Oral iron supplementation started 08/21. - Ferritin, Iron, TIBC resulted; mixed picture - Transfuse for Hb <8 - S/p 1u pRBC 08/22 ?? Infectious disease:?? # Septic shock # Bilateral airspace opacities/multifocal pneumonia # L Hip Fluid Collection # Subcentimeter left posterior upper lobe cavitary lesions - Infectious work-up initially did not yield any clear causative organisms - S/p BAL 08/21 without any growth to date. - IR, orthopedic surgery consulted for evaluation of L hip fluid collection. No intervention/drainable target. - Stopped zosyn as per ID (08/14- 08/23) - Fungal testing positive no change in management at this time per ID #Housekeeping: DVT PPx: LMWH SCD GI PPx: Diet: Sips and Chips (Give Meds) Lines: PICC Line - Double Lumen 08/19/22 1655 basilic vein (medial side of arm), right 5 Fr (Active) Number of days: 11 D/c planning: TBD pending clinical course Code status: Attempt Cardiopulmonary Resuscitation - Inpatient Irwin Jones MD Internal Medicine PGY1 Medicine Team: Jose Juan, Pager #[phone] Date: 08/31/2022 Associated attestation - Tenisha Sandy MD - 08/31/2022 8:10 PM EDT Attending Attestation and Certification Please see Irwin Jones MD's note for details of the patient history of presentation and data. I have discussed, reviewed and agree with the documented History, Physical findings, Assessment and Plan of care. I have examined the patient myself and personally reviewed all studies. In addition, I certify thatI am a D-H credentialed attending provider with admitting privileges and that the patient meets or has met medical necessity to require an inpatient IPI level of care meeting a minimum of two midnights or is on the CMS inpatient only procedure list (status C) due to: acute metabolic encephalopathy,management of nstemi/stress cardiomyopathy, s/p treatment of sepsis. * Reynaldo Avila MD - 08/29/2022 8:10 AM EDT Images from the original note were not included. Cardiology Progress Note ID: Ishan Irving is a 62 year old female with a medical history notable for recent L femoral neck fracture, bipolar disorder, resolving medication- induced Parkinsonism, insulin-dependent diabetes mellitus, hx of alcohol use disorder (reported to be in remission for 1.5 years) c/b chronic pancreatitis, iron deficiency anemia, GERD c/b esophagitis & Farrell's esophagus presenting in transfer from [facility], suspected to be in cardiogenic shock and found to be in mixed shock with concern for stress cardiomyopathy. 24 Hour Events/Subjective: Overnight: - NAEON. This AM: - Appears mildly less responsive this morning than prior; still opening eyes to voice, but does notengage further. Vasoactive & Sedating Medications: Infusions: Continuous Infusions: ??? tube feeding diet 1,176 mL (08/29/22 0626) Objective: Vitals Last value Range last 24 hrs Temperature Temp: 36.8 ??C (98.2 ??F) Temp: [36.4 ??C (97.5 ??F)-36.8 ??C (98.2 ??F)] Heart Rate Heart Rate: 75 Heart Rate: [52-116] Blood Pressure BP: 116/47 BP: (116-138)/(47-74) Art Line BP BP (Arterial Line): 111/70 BP (Arterial Line): -- MAP (NBP): [65 mmHg-88 mmHg] Respiratory Rate Resp: 18 Resp: [16-18] SpO2 SpO2: 98 % SpO2: [95 %-100 %] Oxygen Delivery Oxygen Therapy O2 Device: None (Room air) O2 Flow Rate (L/min): 3 L/min FiO2 (%): 21 % Reason for Oxygen: Patient currently on room air Intake/Output Summary (Last 24 hours) at 08/29/2022 0847 Last data filed at 08/29/2022 0331 Gross per 24 hour Intake 1379 ml Output 0 ml Net 1379 ml Patient Vitals for the past 168 hrs: Weight 08/29/22 0451 70.4 kg (155 lb 3.2 oz) 08/27/22 0512 69.6 kg (153 lb 6.4 oz) 08/26/22 0500 71.5 kg (157 lb 11.2 oz) 08/25/22 0600 70 kg (154 lb 5.2 oz) 08/24/22 0500 69.3 kg (152 lb 12.5 oz) 08/23/22 0500 70.6 kg (155 lb 10.3 oz) Admit wt: 69 kg Physical Exam: Gen: Resting comfortably in NAD. Patient appearing muted/very reserved overall. Able to move all extremities but lies very still CV: RRR, no murmurs or gallops noted. Resp: No increased work of breathing. Coarse breath sounds. Abd: Normoactive bowel sounds in all 4 quadrants. Abdomen soft, non-tender, and non-distended. Ext: 2+ distal pulses, no pedal edema. Feet warm to touch. No erythema or swelling surrounding the left hip incision. No observable tenderness to deep palpation of the left hip. Neuro: AOx3, CN grossly intact Moves all extremities. No focal deficits. Labs: Recent Labs 08/28/22 0700 08/27/22 0540 08/26/22 0022 08/25/22 0114 08/24/22 0153 WBC 9.0 9.5 8.9 11.4* 13.8* HGB 8.6* 8.6* 8.3* 8.6* 8.7* HCT 27.4* 27.7* 26.6* 27.9* 28.1* PLATELET 464* 528* 456* 501* 504* MCV 70.3* 70.7* 70.0* 69.8* 69.4* Recent Labs 08/28/22 0700 08/27/22 1800 08/27/22 1355 08/27/22 0950 08/27/22 0540 08/26/22 0022 08/25/22 0114 08/24/22 1421 08/24/22 0153 NA 141 -- -- -- 139 137 138 -- 141 CL 105 -- -- -- 106 105 106 -- 106 CO2 27 -- -- -- 27 25 24 -- 27 K 4.2 4.0 4.3 4.4 4.4 4.0 4.1 < > 3.7 MAGNESIUM 0.87 -- -- -- 0.85 0.76 0.82 -- 0.90 PHOS 4.6* -- -- -- 3.7 2.8 2.3* -- 2.3* CALCIUM 9.4 -- -- -- 9.3 9.0 8.6 -- 8.6 BUN 15 -- -- -- 15 12 15 -- 17 CREATININE 0.46* -- -- -- 0.44* 0.38* 0.38* -- 0.45* < > = values in this interval not displayed. LFTs No results for input(s): PROT, ALBUMIN, AST, ALT, ALKPHOS, BILITOT, BILIDIR in the last 168 hours. Coags No results for input(s): INR, PT, PTT, FIBRINOGEN, DDIMER in the last 168 hours. Invalid input(s): THROMBIN TIME Cardiac Enzymes No results for input(s): CK, TROPONINT, PROBNP in the last 168 hours. Endocrine Recent Labs 08/20/22 1400 08/15/22 0000 TSH 1.90 0.28 Recent Labs 08/29/22 0353 08/29/22 0013 08/28/22 1938 08/28/22 1633 08/28/22 1206 08/28/22 0459 08/28/22 0008 08/27/22 2150 08/27/22 1655 08/27/22 1132 08/27/22 0738 08/27/22 0519 POCGLU 152 153 211* 196 221* 96 91 140 149 141 114 124 Microbiology: 08/24 Fungitell positive 08/24 BAL Fungal culture positive 08/21 BAL Lower Resp culture NGTD, no microorganisms on gram stain. TTE: 08/19: -Left ventricular systolic function is moderately reduced. The left ventricular ejection fraction is 32% by Dahl's biplane. The apical portions of the LV remain akinetic with preservation of the basal segments. There is no apical thrombus seen with echo enhancing agent. Imaging: CT Chest 08/27: Stable findings of multifocal pneumonia. No interval abnormality. CT Angiogram Coronary Arteries 08/27: Coronary calcium score of 0, consistent with no detectable calcified atherosclerotic plaque burden. Assessment & Plan: Ms. Irving is a 62 year old female with a medical history notable for insulin-dependent diabetes mellitus, bipolar disorder, alcohol use disorder in remission, iron deficiency anemia, and recent L femoral neck fracture s/p surgical fixation presenting in transfer with acute hypoxic respiratory failure, pneumonia, and newly identified heart failure. Mrs. Irving remains stable from a cardiac perspective. CT coronary arteries performed 08/27 showed coronary calcium score of 0; given appropriate pressures and good tolerance of losartan, we will add entresto and empagliflozin today. Otherwise, stable from respiratory/infectious perspectives currently. Barriers to discharge currently are non-cardiac, as she remains minimally interactive. We will plan to work with psychiatry to clarify if her depakote or bipolar disorder could be contributingto this. She was seen by speech language pathology yesterday who recommended chips/sips diet, as well as modified barium swallow early next week. Given her continuing reliance on NG tube here in the hospital, will require discussion of possible G-tube placement prior to discharge. Neuro: # Bipolar Disorder - Depakote 300 mg oral liquid per Dobhoff tube q6hr. - Continue Seroquel 100mg nightly - Will check VPA trough level 08/29. - GAS STATION SUPERVISOR to evaluate. - Reach out to neurology, psychiatry regarding medication regimen and parkinsonism. Pulmonary: # Acute hypoxic respiratory failure, resolved. # Bilateral airspace opacities/multifocal pneumonia - Respiratory support with LFNC PRN; currently on RA - Antibiotics: zosyn, stopped per ID - Fungitell and Fungal Cx positive, no change in management at this time per ID - CT Chest showing persistent pneumonia; appreciate ID assistance. ?? Cardiac: # Distributive Shock # NSTEMI Type I vs Type II # HFrEF (EF 25%) # C/f Stress Cardiomyopathy - Will not perform LHC given results of CTA coronary arteries. - ASA 81mg, Plavix 75mg, stopped today given low suspicion for CAD. - Continue Losartan 25mg daily - Continue Metoprolol Tartrate 25mg QD - Spironolactone 12.5mg QD. - Start entresto 24-26mg today. - Start empagliflozin 10mg today. - Continue Lovenox - Mg >1, K >4 ?? GI: # GERD c/b Farrell's esophagus & esophagitis # Constipation- resolved # Rectal wall edema 2/2 stool ball - Has Miralax, senna, dulcolax PRN ordered - Continue home pantoprazole 40 BID ?? Endocrine: # Insulin-dependent diabetes - Diabetes Management consulted, appreciate recs - Continue Glargine 23u daily - Humalog 75/25 30 units before tube feeds. - Moderate SSI ?? Hematology/oncology: # Mixed JERRICA and ACD - Oral iron supplementation started 08/21. - Ferritin, Iron, TIBC resulted; mixed picture - Transfuse for Hb <8 - S/p 1u pRBC 08/22 ?? Infectious disease: # Septic shock # Bilateral airspace opacities/multifocal pneumonia # L Hip Fluid Collection # Subcentimeter left posterior upper lobe cavitary lesions - Infectious work-up has not yielded any organisms - S/p BAL 08/21 without any growth to date. - IR, orthopedic surgery consulted for evaluation of L hip fluid collection. No intervention/drainable target. - Stopped zosyn as per ID (08/14- 08/23) - Fungal testing positive no change in management at this time per ID #Routine Diet: Sips and Chips (Give Meds) DVT prophylaxis: LMWH SCD GI Prophylaxis: home PPI Code Status: Attempt Cardiopulmonary Resuscitation - Inpatient Alternative Medical Decision Maker: zac Avila MD Internal Medicine, PGY-1 Cardiology [facility] #[id number] Associated attestation - Roland Pruett MD - 08/29/2022 11:49 AM EDT CARDIOLOGY ATTENDING NOTE Patient: Ishan Irving Date of Service: 08/29/2022 Date of Admission: 08/14/2022 Length of Stay Hospital Day 15 days Please see the above note by Dr. Avila for details. I have interviewed and examined the patient independently and I concur with the assessment and plan. The case was discussed on cardiology roundsand we reviewed the plan of care with the team and patient. In addition, I certify that I am a D-H credentialed attending provider with admitting privileges and that the patient meets or has met medical necessity to require an inpatient IPI level of care meeting a minimum of two midnights. Mrs. Irving is a 62 year old woman with history of bipolar disorder, diabetes who presented with cardiogenic shock in the setting of stress cardiomyopathy and chronic aspiration. Ischemic work-upnegative with coronary calcium score of 0. GDMT for HFrEF. Appreciate psychiatry and GAS STATION SUPERVISOR consultation. Rest per Dr. Avila. Roland Pruett MD, MPH, RPVI, FACC, FARYAN, SHERI, FS Pager [phone] Cardiovascular Transportation Operations ManagerPatient Placement Coordinatorelectronic [place] [address] * Petty Mccullough, GAS STATION SUPERVISOR - 08/28/2022 3:49 PM EDT Speech Therapy Note Patient Profile: Ishan Irving is a 62 year old female with a medical history notable for??recent L femoral neck fracture,??bipolar disorder, resolving medication-induced Parkinsonism, insulin-dependent diabetes mellitus,??hx of alcohol use disorder (reported to be in remission for 1.5 years) c/b chronic pancreatitis, iron deficiency anemia,??GERD??c/b??esophagitis &??Farrell's esophagus??presenting in transfer from [facility] on 08/14/2022, suspected to be in cardiogenic shock and found to bein mixed shock with concern for stress cardiomyopathy. GAS STATION SUPERVISOR service was consulted to assess oropharyngeal swallow function post-extubation. Service continues to follow for dysphagia. Lines/Drains: Dobhoff, midline, PICC, catheter Precautions: Fall risk, Aspiration risk, Delirium and High risk skin breakdown Continuous Interventions: ??? tube feeding diet 1,176 mL (08/28/22 0655) Interval History: No acute events noted. Dispo planning in the works, unable to d/c with DHT. Subjective: Awake/alert, needing to use the restroom. Assisted RN in cleaning and repositioning Pt.Pt states she is not very hungry or thirsty but agreeable to PO trials. Flat affect, delayed processing but with good participation. Objective: Pt seen for dysphagia management and demonstrated the following: Vital Signs During Session: SpO2 96-100% Pain: Denies Respiratory Status: Room air Current Diet: Sips and Chips (Give Meds) Feeding / Oral Care Status: Pt requires cues and / or assistance. Brushed teeth with set-up. Very dried secretions on outer lips. Cognitive-Linguistic Status: Confused: Disoriented to person, place, time, difficulty following commands, shortened attention span, irritable, restless Command Following: Follows single step commands Positioning: HOB at 85 degrees Oral / Laryngeal Mechanism Clinical Assessment: Reduced vocal intensity, intermittently noted to improve after PO trials for single words. Generalized oropharyngeal weakness suspected. Cough effortful, non-productive. Bolus Presentation(s) ?? Ice chips ?? [place] thickened liquid via cup ?? Puree Oral Preparatory Phase ?? Mastication: DNT hard solids ?? Oral Transit: Delayed/prolonged ?? Labial Seal / Loss: Weak labial seal but with no anterior loss ?? Oral Stasis: Trace, cleared spontaneously with purees Pharyngeal Phase ?? Delay in swallow initiation suspected?: Yes 2-5 seconds- variable ?? Vocal quality: Clear and No changes ?? Multiple Swallows per bolus: Yes x2-3 per bolus may indicate incoordination of pharyngeal musculature or impaired pharyngeal clearance ?? Cough / throat clear: Yes x1 single cough after all PO rials ?? Pt. complaint of food getting stuck: No but did confirm That pudding is thick. ?? Fatigue across trials: Yes ?? Respiratory rate and respiratory swallow pattern: WF Esophageal Observations: Infrequent belching with liquids Confusion Assessment Method (CAM) Adapted from Bowen et al., 1990 Essential/Core Scoring: Acute Onset: Yes Inattention: ??? Did the patient have difficulty focusing attention?: Present at some time during interview, butin mild form ??? (If present or abnormal) Did this behavior fluctuate during the interview?: No Disorganized Thinking: Yes (Rambling or irrelevant conversation, unclear or illogical flow of ideas, or unpredictable, switching from subject to subject) Altered Level of Consciousness: Alert (normal) Additional/Supplemental Scoring: Disorientation: Yes Memory Impairment: Yes Perceptual Disturbances: Uncertain (Hallucinations, illusions or misinterpretations). Psychomotor Agitation: No (Restlessness, picking at bedclothes, tapping fingers or making frequent, sudden changes in position). Psychomotor Retardation: Yes (Sluggishness, staring into space, staying in one position for a long time, or moving very slowly?) Altered Sleep-Wake Cycle: Uncertain (Excessive daytime sleepiness with insomnia at night) Scoring: For diagnosis of delirium by CAM, must display: 1. Presence of acute onset and fluctuating discourse AND 2. Inattention AND EITHER 3. Disorganized thinking OR 4. Altered level of consciousness [x] [x] [x] [] Orientation Log Score: 21 Education: GAS STATION SUPERVISOR educated re: plan of care, recs for MBS at later date. Pt in agreement, stating she would like DHT out but understands she is not ready to eat/drink yet. Assessment: Pt was seen today for a follow-up GAS STATION SUPERVISOR visit. ??? Oropharyngeal swallow function characterized by suspected delayed swallow initiation and cough response with all PO trials this date. Cough appears effortful, non-productive. ??? Based on Pt's complicated medical history and current debility, recommend MBS prior to diet initiation. Orders received, will try to order for next week (08/31-09/04) ??? Orientation log score of , does require frequent extended processing time to answer questions and follow commands. Showing some signs of hypoactive delirium per CAM screener, will continue to monitor. Pt will benefit from continued therapeutic interventions to achieve therapy goals. Diagnosis: Suspected oropharyngeal dysphagia + suspected esophageal component Recommendations: Diet: NPO, May offer individual ice chips for pleasure / practice PO medications: IV or other alternative means only Aspiration Precautions: Excellent oral care Delirium Precautions: Orientation: ? Provide visual and hearing aids ? Utilize cues such as calendars and clocks ? Encourage communication and reorient patient repeatedly ? Have familiar objects from patient's home in room ? Attempt consistency in Nursing Staff ? Allow television during the day with daily news ? Non-verbal music Environment: ? Sleep hygiene (dim light at nighttime, bright during the day) ? Limit excess noise (staff, equipment, visitors at night) ? Ambulate or mobilize patient early and often Speech Therapy Goals: Swallow: To be determined by results of Modified Barium Swallow study Pt will tolerate least restrictive diet without evidence of dysphagia / aspiration. Pt / caregiver will be independent with aspiration precautions, diet modifications, and safe swallowing strategies. Pt will maintain hydration / nutrition with optimal safety and efficiency. Delirium: Pt will improve orientation to x4 consistently with use of frequent re- orientations and visual aides in room as able. Pt will participate in simple reasoning and memory tasks to promote cognitive simulation and reducerisk of delirium Pt/caregivers will follow anti-delirium precautions independently with assist from staff as needed Plan: Therapy Frequency (GAS STATION SUPERVISOR Eval): 2-4 times/wk Pt./family are in agreement with treatment plan. Total Minutes (Speech Language Pathology): 30 Petty Mccullough M.S., [facility]-GAS STATION SUPERVISOR Inpatient Speech-Pathology Pager: [phone] * Elsie Erickson APRN - 08/28/2022 3:49 PM EDT Follow Up Diabetes Consult Patient Interview Blood glucose values and insulin use reviewed. Ishan is awake, reports feeling constipated. Peptamen AF TFs continue, now cycled 6pm- 6am. Running currently at 55mls/hr with goal rate 98mls/hr cycled over these 12 hours. Objective Temp: [36.4 ??C (97.5 ??F)-36.8 ??C (98.2 ??F)] Heart Rate: [56-116] Resp: [16-18] BP: (113-121)/(63-75) SpO2: [92 %-100 %] Heart Rate from SpO2: -- Current Regimen from previous note 1. Lantus??25 units? 2.??Tube feed associated??Lispro: 5 units Q 4 hours to cover 20 grams carbohydrates in her PeptamenAF running at 45 mls hr continuous. ??IF tube feed stops, this needs to be held. ??If formula or rate changes, please call for new orders, this is based on a 1:4 insulin to carb ratio 3. Correction Lispro, ISF??moderate?? 4. Diet: Peptamen AF at 45mls/hr continuous.?? 5. Monitoring: Q4?? Recent Glucose Levels Recent Labs 08/28/22 1206 08/28/22 0459 08/28/22 0008 08/27/22 2150 08/27/22 1655 08/27/22 1132 08/27/22 0738 08/27/22 0519 08/26/22 2327 08/26/22 2005 08/26/22 1651 08/26/22 1313 POCGLU 221* 96 91 140 149 141 114 124 162 138 111 151 ASSESSMENT Ishan Irving is a 62 year old female with a medical history notable for??recent L femoral neck fracture,??bipolar disorder, resolving medication- induced Parkinsonism, insulin-dependent diabetesmellitus,??hx of alcohol use disorder (reported to be in remission for 1.5 years) c/b chronic pancreatitis, iron deficiency anemia,??GERD??c/b??esophagitis &??Farrell's esophagus??presenting in transfer from [facility], suspected to be in cardiogenic shock and found to be in mixed shock with concern for stress cardiomyopathy.??A1C of 6.2% upon admission suggesting an average BG of??131??mg/dL for the past 6-8 weeks. Currently has variability of blood glucose levels while hospitalized requiring adjustment of insulin regimen and DM medications. ?? Peptamen AF TFs continue, now cycled 6pm- 6am. Running currently at 55mls/hr with goal rate 98mls/hr cycled over these 12 hours. Q 4 hour lispro was previously ordered to cover carbpohydrates delivered over 4 hour period based on a 1:5 and then a 1:4 ICR ( 4 units adjusted to 5 units Q 4 hours to cover 20 grams CHO at 45mls/hr.) We can use this same carb ratio in a mixed insulin dose administeredat the start of the TF once rate is at goal. 98mls/hr of peptamen AF with 112 CHO per 1000cc therefore delivering 10.9 grams carbs/hr and 131 grams carbs over a 12 hour period of time. Humalog 75/25 mixed insulin 30 units (based on ICR 4) couldbe administered 10-15 minutes before start of feed to cover the carbohydrates in the 12 hour cycle of feed. The moderate correction should be maintained, Lantus decreased slightly with evidence of lower BGs when TFs not running at goal. No orders changed. Alerted team to consider. PLAN Lantus:Decrease to 23 units Humalog 75/25 mixed insulin 30 units administered 10-15 minutes before starting peptamen AF at 98mls/hr x 12 hours To cover 130 grams carbs in 12 hour cycle Lispro for correction q 4 hours based on a correction factor of 20 Diet sips and chips and Peptamen AF with goal of 98mls/hr Monitoring: Q4 Elsie Erickson APRN [facility] Endocrinology Diabetes Management Pager [phone] minutes of this 50 minute visit was spent evaluating diabetes and treatment plan, reviewing all glucose and insulin data as well as relevant laboratory results , and coordination of care on the inpatient unit including nursing and primary team. * Shashi Young - 08/28/2022 2:46 PM EDT Marketing Automation Analyst Encounter Note Patient Name: Ishan Irving : [id number] MR#: [id number] Admit Date: 08/14/2022 11:11 PM Hospital Day 14 days Narrative: A follow up visit to patient for Spiritual support per referral. Assessment: Patient is awake, alert, oriented and responsive. Patient is calm and peaceful. Patient is very friendly and receptive. Patient is soft spoken. Patient is feeling better. Patient says, I think I am doing okay. Patient had a broken hip from a fall. Patient sounds hopeful. Patient wants prayer and blessing. Intervention and Outcome: I offered patient non-judgmental Pastoral presence, Empathetic listening, Spiritual/Emotional support and encouragement. I prayed for patient and blessed her. Patient expressed appreciation. Follow-up: Spiritual Health is available per request. Time in Direct Care: Stephanie Young 08/28/2022 * Shashi Young - 08/28/2022 11:45 AM EDT Marketing Automation Analyst Encounter Note Patient Name: Ishan Irving : [id number] MR#: [id number] Admit Date: 08/14/2022 11:11 PM Hospital Day 14 days Narrative: A response to a referral from Abby via voicemail for Spiritual support to patient and her Antonio Almonte from Care Management. Assessment: I visited, patient is being dressed up by a nurse. Patient's has left at the time of this visit and will be back tomorrow. Intervention and Outcome: Patient is being attended to by another Caregiver. Not a good time for Spiritual support. Follow-up: At patient's availability. Time in Direct Care: Shashi Young 08/28/2022 * Alicia Cook OT - 08/28/2022 11:30 AM EDT Occupational Therapy Treatment Note Treatment Number OT: 2 Patient Dx: Ishan Irving is a 62 y.o. female admitted on 08/14/2022 with a medical history notable for??recent L femoral neck fracture,??bipolar disorder, resolving medication-induced Parkinsonism, insulin-dependent diabetes mellitus,??hx of alcohol use disorder (reported to be in remission for 1.5 years) c/b chronic pancreatitis, iron deficiency anemia,??GERD??c/b??esophagitis &??Farrell's esophagus??presenting in transfer from [facility], suspected to be in cardiogenic shock and found to be in mixed shock with concern for stress cardiomyopathy. She is s/p ORIF left femoral neck fracture5 days ago. Precautions/Special Considerations: aspiration, skin breakdown, falls, LLE WBAT, Dobhoff tube, Mcrae Interval History: NAEON. Intermittently disoriented, but stable overnight. S: I have to go to the bathroom O: Patient seen for skilled OT treatment, and demonstrated the following: ?? Self-care: - Pt up in recliner chair upon OT arrival, positioned with pillows. Spouse in room visiting - Completed oral care with mod A assist for thoroughness. Able to hold toothbrush in R hand independently - Initiation cues for washing face, hands, arms, and chest. Assisted for thoroughness with mod A - Brushed hair using R hand, left side of head only for about 10 strokes. Assisted to brush and style remainder. - Intermittent cues throughout session for forward leaning to engage trunk. Sustains for about 10-15 seconds before sitting back - Left up in recliner chair at end of session. Call light in reach. Nurse made aware. ?? Cognition: ?? Behavior / Mood: alert, cooperative and flat affect ?? Alert and oriented to: person, place, time and situation ?? Follows commands: 1 step, 100% of the time and requires increased time ?? Attention: WFL ?? Safety awareness: WFL, aware of L femur Fx ?? Able to ID button to call nurse ?? Vision: Glasses not present; report she wears most of the time ?? Endurance: Poor. Fatigued after 5 reps of shoulder flexion ex to 90* ?? Vitals: VSS ?? Strength/ROM: 5 reps each with initiation cue - Finger flexion/ext - Elbow flexion/ext - Shoulder flexion/ext Pain: Denies Education: Pt/family/caregiver education ongoing regarding: ADL, Exercise, Positioning, Recommendations and Discharge planning. Staff Communication: Patient status, treatment, and mobility recommendations discussed with nursing/other staff. Pt aware of need to urinate. ASSESSMENT: Pt with increased participation today in self-care activities of bathing and grooming. A & O x 4. Requiring mod A for oral hygiene, hair brushing, and upper body bathing while seated in recliner. Generalized UE and core strength and impaired endurance impacting mobility and ADLs. Ptwill benefit from ongoing therapeutic interventions to achieve pt's and therapy goals. Recommend SNF or Acute rehab stay to maximize independence. Equipment needs at discharge: to be determined Anticipated Discharge Disposition: [facility] facility, acute rehabilitation facility Daily schedule / Staff Recommendations: ? ? Encourage use of coping & calming strategies ??? Give choices when possible to support feelings of autonomy ? ? Frequent orientation verbally & visually with calendars/clocks/whiteboard ? ? Keep glasses, hearing aides, etc within reach & offer to pt as appropriate ??? Facilitate a normal sleep-wake cycle ??? Provide brief, clear instruction and direction from one source at a time ??? Provide calming music, favorite TV programs, magazines or newspapers ??? Utilize upright chair position using bed features or transfer to recliner chair as appropriate with mechanical lift ??? Encourage participation in ADL's by providing set up A on tray table and physical assist only as needed Occupational Therapy Goals: To be achieved by 09/08/22: ?? Patient will complete toileting tasks (hygiene, clothing management, transfers) with Mod A and withAE, as needed Patient will ambulate household distances with Mod A and with AD, as needed Patient will be consistently A&Ox4 with external cues Patient will complete UB/LB sponge bathing tasks with Min A, while seated with AE, as needed Patient will complete grooming task (comb hair, brush teeth) with supervision, seated EOB Pt will follow 2 step motor command 5/5 times during session Therapy Frequency (OT): 2-4 times/wk Total Minutes, Occupational Therapy: 28 (1 [phone] [phone]) Pager: [phone] Alicia Cook OT 08/28/2022 Occupational Therapy Rehabilitation Department * Gene Young, PT - 08/28/2022 11:30 AM EDT Physical Therapy Note Treatment Number PT: 5 Patient profile: Ishan Irving is a 62 y.o. female admitted on 08/14/2022 with a medical history notable for??recent L femoral neck fracture,??bipolar disorder, resolving medication-induced Parkinsonism, insulin-dependent diabetes mellitus,??hx of alcohol use disorder (reported to be in remission for 1.5 years) c/b chronic pancreatitis, iron deficiency anemia,??GERD??c/b??esophagitis &??Farrell's esophagus??presenting in transfer from [facility], suspected to be in cardiogenic shock and found to be in mixed shock with concern for stress cardiomyopathy. She is s/p ORIF left femoral neck fracture 5 days ago at OSH. Interval History: Nothing new, in room 436 with Antonio present most of the time. Social History: single level home w ramp to enter. 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 Pt drives, does all community chores. Does have a RW avail at home which she had been using since ORIF. Fall Hx: Spouse reports that pt slipped in a puddle of water left by the dog which is the cause of her hip fx Precautions/Special Considerations: WBAT L leg, Fall risk, dobhoff Mobility and Positioning Recommendations: ?? Pt. Transfers bed to chair w RW and Ax 2 and fww, ?? Please encourage up to chair for meal times as able. Subjective: Pt smiled today, still with weak vocalization. Her Antonio was present and encouraging. Objective: Patient seen for physical therapy and demonstrated the following: Pain: no pain behaviors Vital Signs: stable on room air. ?? Pt in supine upon arrival, she demonstrated how she was able to use UE's on bilateral rails to independently sit fully upright today to long sit. She did this 5 times for exercise independently but slowly. ?? Ankle pumps, sh ff, SAQ, hip abd with assist performed in supine x 10 reps ?? Supine to sit with only min assist for left leg today and min assist for trunk and cues. ?? Good sitting balance at the EOB. ?? Mod assist needed to scoot forward on the bed. She is short so needs to sit forward to get feet to the floor ?? Walker was placed in front of pt. ?? She stood to walker with min assist of 1 and mod of another, improved use of UE's today on the walker. ?? She walked about 4' forward ~7 steps with chair follow. Poor LE motor control with decreased step width and variable step length. ?? Fear of falling was evident and impeded her progress. She started crying and could not go farther. When asked about it she stated she is fearful of falling. ?? She rested in the visitor chair for ~5 mins. ?? Sit to stand pivot from visitor chair to cc with max assist of 2. ?? Pt left in bedside recliner chair, with all needs met, with call marshall in reach and with family at the bedside following visit. Education: Pt edu re: goals of rx, activity progression Assessment: Ishan Irving was seen today for physical therapy treatment session for continuation of POC. Pt demonstrated improved participation and communication today. Pt was able to take more steps today and her UE and LE strength is improving. Limited by weakness and significant fear of falling. Pt will benefit from ongoing therapeutic interventions to achieve therapy goals. Discharge Recommendations: Based on the current findings, Anticipated Discharge Disposition (PT): swing bed rehabilitation facility when medically ready for hospital discharge. Consult Recommendations: No other consults recommended at this time. Equipment needs: none Anticipated Equipment Needs at Discharge (PT): to be determined Physical Therapy Goals: ongoing To be achieved by 09/07/22: ?? 1. Pt. will demonstrate understanding of appropriate exercises and perform them independently or with family. 2. Pt. will perform bed mobility with modified independence. 3. Pt. will perform sit to stand transfers with min A using a front wheeled walker. 4. Pt. will ambulate 10 feet with mod A using a a front wheeled walker. Pt. will ascend/descend step/stairs sufficient for home using rail and assist of 1 Plan: Therapy Frequency (PT): 2-4 times/wk for skilled PT rx as outlined in initial evaluation. Patient agrees with plan as stated. Time IN / OUT: 11-1130 Total Minutes, Physical Therapy: 25 Billing Code: TAx2 GENE YOUNG, PT Pager: [phone] Physical Therapy Inpatient Rehabilitation Department * Avani Ayala RN - 08/28/2022 10:02 AM EDT Office of Care Management (OCM /[place] (CM)Discharge planning ) Service : S1 Pager #[phone] e- reviewed. Report received from [facility] Patient plan of care discussed with Team and Nursing to assessment for continuing care and discharge needs. [facility]: 14 DECISION MAKER: Attempt Cardiopulmonary Resuscitation - Inpatient, <no information> Ongoing Issues: This proposal lead writer had a message to give Antonio a call . He has reqyested that [facility] be the referral of choice . He is aware his is not medically ready at this time but is hoping for a bed close to home. Current Referral in place: Based on discussions with the multi-disciplinary healthcare team, the patient would benefit from SNF / Swing level of care at discharge. I have met with the patient- to: ?? discuss discharge planning needs. ?? provide the [facility], Office of Care Management letter from the New Media Strategist pertaining to rehabreferrals. ?? provide a letter describing our affiliations within the [facility] and educate about their right to choose where referrals are sent. ?? provide the [facility] Star Quality Rating handout. ?? review the different levels of rehab including SNF, swing, and acute. ?? provide a list of facilities within their preferred geographic area. ?? request that they provide at least three choices for referral. They have requested referrals to: [facility] [place] [facility] [address] [place] [id number] P: [phone] F: [phone] Does patient have COVID vaccine card: No Note routed to a Hospitalist Program Director who will communicate referrals to facilities and provide any required information. Barriers to Discharge: Patient has Dobbhoff tube providing nutrition . Team has been made aware placement to facility can not happen with Dobbhoff tube in place. Family Concerns: None voiced at this time Anticipate Transport at time of discharge: Ambulance Plan: CM will continue to follow for coordination of care and to facilitate discharge planning. Avani Ayala RN, CM Pager # [phone] * Reynaldo Avila MD - 08/28/2022 7:43 AM EDT Images from the original note were not included. Cardiology Progress Note ID: Ishan Irving is a 62 year old female with a medical history notable for recent L femoral neck fracture, bipolar disorder, resolving medication- induced Parkinsonism, insulin-dependent diabetes mellitus, hx of alcohol use disorder (reported to be in remission for 1.5 years) c/b chronic pancreatitis, iron deficiency anemia, GERD c/b esophagitis & Farrell's esophagus presenting in transfer from [facility], suspected to be in cardiogenic shock and found to be in mixed shock with concern for stress cardiomyopathy. 24 Hour Events/Subjective: Overnight: - NAEON. Intermittently disoriented, but stable overnight. This AM: - Appears slightly more interactive today; talking briefly. Does not verbalize complaints includingshortness of breath, chest pain, etc. Vasoactive & Sedating Medications: Infusions: Continuous Infusions: ??? tube feeding diet 1,176 mL (08/27/221742) Objective: Vitals Last value Range last 24 hrs Temperature Temp: 36.8 ??C (98.2 ??F) Temp: [35.9 ??C (96.6 ??F)-36.8 ??C (98.2 ??F)] Heart Rate Heart Rate: 87 Heart Rate: [58-96] Blood Pressure BP: 121/75 BP: (106-121)/(52-75) Art Line BP BP (Arterial Line): 111/70 BP (Arterial Line): -- MAP (NBP): [77 mmHg-90 mmHg] Respiratory Rate Resp: 18 Resp: [16-18] SpO2 SpO2: 96 % SpO2: [95 %-100 %] Oxygen Delivery Oxygen Therapy O2 Device: None (Room air) O2 Flow Rate (L/min): 3 L/min FiO2 (%): 21 % Reason for Oxygen: Patient currently on room air Intake/Output Summary (Last 24 hours) at 08/28/2022 0743 Last data filed at 08/27/2022 1748 Gross per 24 hour Intake 1235 ml Output 800 ml Net 435 ml Patient Vitals for the past 168 hrs: Weight 08/27/22 0512 69.6 kg (153 lb 6.4 oz) 08/26/22 0500 71.5 kg (157 lb 11.2 oz) 08/25/22 0600 70 kg (154 lb 5.2 oz) 08/24/22 0500 69.3 kg (152 lb 12.5 oz) 08/23/22 0500 70.6 kg (155 lb 10.3 oz) 08/22/22 0400 72 kg (158 lb 11.7 oz) Admit wt: 69 kg Physical Exam: Gen: Resting comfortably in NAD. Patient appearing muted/very reserved overall. Able to move all extremities but lies very still CV: RRR, no murmurs or gallops noted. Resp: No increased work of breathing. Coarse breath sounds. Abd: Normoactive bowel sounds in all 4 quadrants. Abdomen soft, non-tender, and non-distended. Ext: 2+ distal pulses, no pedal edema. Feet warm to touch. No erythema or swelling surrounding the left hip incision. No observable tenderness to deep palpation of the left hip. Neuro: AOx3, CN grossly intact Moves all extremities. No focal deficits. Labs: Recent Labs 08/28/22 0700 08/27/22 0540 08/26/22 0022 08/25/22 0114 08/24/22 0153 WBC 9.0 9.5 8.9 11.4* 13.8* HGB 8.6* 8.6* 8.3* 8.6* 8.7* HCT 27.4* 27.7* 26.6* 27.9* 28.1* PLATELET 464* 528* 456* 501* 504* MCV 70.3* 70.7* 70.0* 69.8* 69.4* Recent Labs 08/28/22 0700 08/27/22 1800 08/27/22 1355 08/27/22 0950 08/27/22 0540 08/26/22 0022 08/25/22 0114 08/24/22 1421 08/24/22 0153 NA 141 -- -- -- 139 137 138 -- 141 CL 105 -- -- -- 106 105 106 -- 106 CO2 27 -- -- -- 27 25 24 -- 27 K 4.2 4.0 4.3 4.4 4.4 4.0 4.1 < > 3.7 MAGNESIUM 0.87 -- -- -- 0.85 0.76 0.82 -- 0.90 PHOS 4.6* -- -- -- 3.7 2.8 2.3* -- 2.3* CALCIUM 9.4 -- -- -- 9.3 9.0 8.6 -- 8.6 BUN 15 -- -- -- 15 12 15 -- 17 CREATININE 0.46* -- -- -- 0.44* 0.38* 0.38* -- 0.45* < > = values in this interval not displayed. LFTs No results for input(s): PROT, ALBUMIN, AST, ALT, ALKPHOS, BILITOT, BILIDIR in the last 168 hours. Coags No results for input(s): INR, PT, PTT, FIBRINOGEN, DDIMER in the last 168 hours. Invalid input(s): THROMBIN TIME Cardiac Enzymes No results for input(s): CK, TROPONINT, PROBNP in the last 168 hours. Endocrine Recent Labs 08/20/22 1400 08/15/22 0000 TSH 1.90 0.28 Recent Labs 08/28/22 0459 08/28/22 0008 08/27/22 2150 08/27/22 1655 08/27/22 1132 08/27/22 0738 08/27/22 0519 08/26/22 2327 08/26/22 2005 08/26/22 1651 08/26/22 1313 08/26/22 1128 POCGLU 96 91 140 149 141 114 124 162 138 111 151 130 Microbiology: 08/24 Fungitell positive 08/24 BAL Fungal culture positive 08/21 BAL Lower Resp culture NGTD, no microorganisms on gram stain. TTE: 08/19: -Left ventricular systolic function is moderately reduced. The left ventricular ejection fraction is 32% by Dalh's biplane. The apical portions of the LV remain akinetic with preservation of the basal segments. There is no apical thrombus seen with echo enhancing agent. Imaging: CT Chest 08/27: Stable findings of multifocal pneumonia. No interval abnormality. CT Angiogram Coronary Arteries 08/27: Coronary calcium score of 0, consistent with no detectable calcified atherosclerotic plaque burden. Assessment & Plan: Ms. Irving is a 62 year old female with a medical history notable for insulin-dependent diabetes mellitus, bipolar disorder, alcohol use disorder in remission, iron deficiency anemia, and recent L femoral neck fracture s/p surgical fixation presenting in transfer with acute hypoxic respiratory failure, pneumonia, and newly identified heart failure. Stable without significant changes from preceding days, though slightly more interactive. CT chest and CT angiogram coronary arteries performed yesterday, showing stable pneumonia and coronary calcium score of 0. We will continue to monitor off antibiotics, as she has been improving despite previous positive fungal cultures/fungitell. No need for LHC given CTA results, and will stop DAPT today. Increasing depakote to 300mg q6hr via Dobhoff tube and will continue seroquel to 100mg tonight. Will reach out to neurology and psychiatry for thoughts on parkinsonism/medication regimen contributing to overall slow recovery. GAS STATION SUPERVISOR consulted, appreciate recs. Neuro: # Bipolar Disorder - Depakote 300 mg oral liquid per Dobhoff tube q6hr. - Continue Seroquel 100mg nightly - Will check VPA trough level 08/29. - GAS STATION SUPERVISOR to evaluate. - Reach out to neurology, psychiatry regarding medication regimen and parkinsonism. Pulmonary: # Acute hypoxic respiratory failure, resolved. # Bilateral airspace opacities/multifocal pneumonia - Respiratory support with LFNC PRN; currently on RA - Antibiotics: zosyn, stopped per ID - Fungitell and Fungal Cx positive, no change in management at this time per ID - CT Chest showing persistent pneumonia; appreciate ID assistance. ?? Cardiac: # Distributive Shock # NSTEMI Type I vs Type II # HFrEF (EF 25%) # C/f Stress Cardiomyopathy - Will not perform LHC given results of CTA coronary arteries. - ASA 81mg, Plavix 75mg, stopped today given low suspicion for CAD. - Continue Losartan 25mg daily - Continue Metoprolol Tartrate 12.5mg BID - Spironolactone 12.5mg QD. - Continue Lovenox - Mg >1, K >4 ?? GI: # GERD c/b Farrell's esophagus & esophagitis # Constipation- resolved # Rectal wall edema 2/2 stool ball - Has Miralax, senna, dulcolax PRN ordered - Continue home pantoprazole 40 BID ?? Endocrine: # Insulin-dependent diabetes - Diabetes Management consulted, appreciate recs - Continue Glargine 25u daily - Continue Lispro 5u q4h - Moderate SSI ?? Hematology/oncology: # Mixed JERRICA and ACD - Oral iron supplementation started 08/21. - Ferritin, Iron, TIBC resulted; mixed picture - Transfuse for Hb <8 - S/p 1u pRBC 08/22 ?? Infectious disease: # Septic shock # Bilateral airspace opacities/multifocal pneumonia # L Hip Fluid Collection # Subcentimeter left posterior upper lobe cavitary lesions - Infectious work-up has not yielded any organisms - S/p BAL 08/21 without any growth to date. - IR, orthopedic surgery consulted for evaluation of L hip fluid collection. No intervention/drainable target. - Stopped zosyn as per ID (08/14- 08/23) - Fungal testing positive no change in management at this time per ID #Routine Diet: Sips and Chips (Give Meds) DVT prophylaxis: LMWH SCD GI Prophylaxis: home PPI Code Status: Attempt Cardiopulmonary Resuscitation - Inpatient Alternative Medical Decision Maker: zac Avila MD Internal Medicine, PGY-1 Cardiology [facility] #[id number] Associated attestation - Roland Pruett MD - 08/28/2022 12:52 PM EDT CARDIOLOGY ATTENDING NOTE Patient: Ishan Irving Date of Service: 08/28/2022 Date of Admission: 08/14/2022 Length of Stay Hospital Day 14 days Please see the above note by Dr. Avila for details. I have interviewed and examined the patient independently and I concur with the assessment and plan. The case was discussed on cardiology roundsand we reviewed the plan of care with the team and patient. In addition, I certify that I am a D-H credentialed attending provider with admitting privileges and that the patient meets or has met medical necessity to require an inpatient IPI level of care meeting a minimum of two midnights. Mrs. Irving is a 62 year old woman with history of bipolar disorder, diabetes who presented with cardiogenic shock in the setting of stress cardiomyopathy and chronic aspiration. Ischemic work-upnegative with coronary calcium score of 0. GDMT for HFrEF. Appreciate psychiatry and GAS STATION SUPERVISOR consultation. Roland Pruett MD, MPH, RPVI, FACC, FAHA, FASE, FS Pager [phone] Cardiovascular Transportation Operations ManagerPatient Placement Coordinatorelectronic [place] [address] * Cydney Moses, RN - 08/28/2022 7:00 AM EDT Pt was able to sleep most of the shift and woke up intermittently for basic need request. Tube feeding restarted per protocol at 45ml/hr. * Nvea Zhao MSW - 08/27/2022 11:52 AM EDT This JUVENILE JUSTICE SPECIALIST received a message this morning from Ishan's spouse, Antonio, asking for a gas card. ThisMSW and transportation RS went to talk to Antonio about his request and provide him with informationon Medicaid rides. Antonio said he is familiar with Medicaid rides, but he is not interested in using those services at this time. This JUVENILE JUSTICE SPECIALIST then explained that the hospital is unable to provide gas cards if Medicaid rides are available. Antonio expressed understanding of this. Antonio then expressed frustration around the lack of support available from the state of [place], sharing that he continues to be unable to find any type of emergency assistance to help with bills and other expenses. Antonio thentalked about his support system, including their two sons that live in [place], as well as his sister and mother in [place]. Antonio said their sons plan to help when their mother returns from the hospital or rehab. RS to follow up and explore other possible options for assistance. * Gene Young, PT - 08/27/2022 10:30 AM EDT Physical Therapy Note Treatment Number PT: 4 Patient profile: Ishan Irving is a 62 y.o. female admitted on 08/14/2022 with a medical history notable for??recent L femoral neck fracture,??bipolar disorder, resolving medication-induced Parkinsonism, insulin-dependent diabetes mellitus,??hx of alcohol use disorder (reported to be in remission for 1.5 years) c/b chronic pancreatitis, iron deficiency anemia,??GERD??c/b??esophagitis &??Farrell's esophagus??presenting in transfer from [facility], suspected to be in cardiogenic shock and found to be in mixed shock with concern for stress cardiomyopathy. She is s/p ORIF left femoral neck fracture 5 days ago at OSH. Interval History: transferred to [facility]; mcrae removed; dobhoff remains Social History: single level home w ramp to enter. 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 Pt drives, does all community chores. Does have a RW avail at home which she had been using since ORIF. Fall Hx: Spouse reports that pt slipped in a puddle of water left by the dog which is the cause of her hip fx Precautions/Special Considerations: WBAT L leg, Fall risk, variable mental status Mobility and Positioning Recommendations: ?? Pt. Transfers bed to chair w RW and Ax 2 and fww, ?? Please encourage up to chair for meal times as able. Subjective: Pt was more alert and interactive today. Her Antonio was present and encouraging. Objective: Patient seen for physical therapy and demonstrated the following: Pain: no pain behaviors Vital Signs: stable on room air. ?? Supine to sit w min assist for LE's and mod assist for trunk and cues. Cues to use bed rail. ?? Good sitting balance at the EOB. ?? Walker was placed in front of pt. ?? She stood x 3 with mod assist , cues for hand placement on the walker. She was able to lean forward, but mod assist of 2 to stand. ?? Fear of falling was evident and impeded her progress. ?? On 3rd stand with fww and assist of 2, pt was able to take very slow and labored steps bed to cc. 6 very small steps with poor hip and knee extension. ?? She needed max assist of 2 to lift and scoot back in the chair. ?? She performed, ankle pumps; sh ff with assist x 10 bilaterally; LAQ, hip flexion x 10, slow reps, but ind. ?? Pt left in bedside recliner chair, with all needs met, with call marshall in reach and with family at the bedside following visit. Education: Pt edu re: goals of rx, activity progression Assessment: Ishan Irving was seen today for physical therapy treatment session for continuation of POC. Pt demonstrated improved participation and communication today. She was able to take steps with less assist from bed to chair and participated in ex's. Pt will benefit from ongoing therapeutic interventions to achieve therapy goals. Discharge Recommendations: Based on the current findings, Anticipated Discharge Disposition (PT): swing bed rehabilitation facility when medically ready for hospital discharge. Consult Recommendations: No other consults recommended at this time. Equipment needs: none Anticipated Equipment Needs at Discharge (PT): to be determined Physical Therapy Goals: ongoing To be achieved by 09/07/22: ?? 1. Pt. will demonstrate understanding of appropriate exercises and perform them independently or with family. 2. Pt. will perform bed mobility with modified independence. 3. Pt. will perform sit to stand transfers with min A using a front wheeled walker. 4. Pt. will ambulate 10 feet with mod A using a a front wheeled walker. Pt. will ascend/descend step/stairs sufficient for home using rail and assist of 1 Plan: Therapy Frequency (PT): 2-4 times/wk for skilled PT rx as outlined in initial evaluation. Patient agrees with plan as stated. Time IN / OUT: 10-1030 Total Minutes, Physical Therapy: 25 Billing Code: TA x 2 GENE YOUNG, PT Pager: [phone] Physical Therapy Inpatient Rehabilitation Department * Reynaldo Avila MD - 08/27/2022 10:28 AM EDT Images from the original note were not included. Cardiology Progress Note ID: Ishan Irving is a 62 year old female with a medical history notable for recent L femoral neck fracture, bipolar disorder, resolving medication- induced Parkinsonism, insulin-dependent diabetes mellitus, hx of alcohol use disorder (reported to be in remission for 1.5 years) c/b chronic pancreatitis, iron deficiency anemia, GERD c/b esophagitis & Farrell's esophagus presenting in transfer from [facility], suspected to be in cardiogenic shock and found to be in mixed shock with concern for stress cardiomyopathy. 24 Hour Events/Subjective: Overnight: - NAEON. Intermittently disoriented, but stable overnight. This AM: - Stable from prior without significant change. Vasoactive & Sedating Medications: Infusions: Continuous Infusions: ??? tube feeding diet 900 mL (08/26/22 1713) Objective: Vitals Last value Range last 24 hrs Temperature Temp: 36.6 ??C (97.9 ??F) Temp: [36.3 ??C (97.3 ??F)-36.6 ??C (97.9 ??F)] Heart Rate Heart Rate: 81 Heart Rate: [58-133] Blood Pressure BP: 107/52 BP: (106-127)/(52-78) Art Line BP BP (Arterial Line): 111/70 BP (Arterial Line): -- MAP (NBP): [74 mmHg-92 mmHg] Respiratory Rate Resp: 15 Resp: [15-18] SpO2 SpO2: 98 % SpO2: [86 %-100 %] Oxygen Delivery Oxygen Therapy O2 Device: None (Room air) O2 Flow Rate (L/min): 3 L/min FiO2 (%): 21 % Reason for Oxygen: Subjective dyspnea with no hypoxia Intake/Output Summary (Last 24 hours) at 08/27/2022 1028 Last data filed at 08/27/2022 0516 Gross per 24 hour Intake 1587.67 ml Output 500 ml Net 1087.67 ml Patient Vitals for the past 168 hrs: Weight 08/27/22 0512 69.6 kg (153 lb 6.4 oz) 08/26/22 0500 71.5 kg (157 lb 11.2 oz) 08/25/22 0600 70 kg (154 lb 5.2 oz) 08/24/22 0500 69.3 kg (152 lb 12.5 oz) 08/23/22 0500 70.6 kg (155 lb 10.3 oz) 08/22/22 0400 72 kg (158 lb 11.7 oz) 08/21/22 0400 72.5 kg (159 lb 13.3 oz) Admit wt: 69 kg Physical Exam: Gen: Resting comfortably in NAD. Patient appearing muted/very reserved overall. Able to move all extremities but lies very still CV: RRR, no murmurs or gallops noted. Resp: No increased work of breathing. Coarse breath sounds. Abd: Normoactive bowel sounds in all 4 quadrants. Abdomen soft, non-tender, and non-distended. Ext: 2+ distal pulses, no pedal edema. Feet warm to touch. No erythema or swelling surrounding the left hip incision. No observable tenderness to deep palpation of the left hip. Neuro: AOx3, CN grossly intact Moves all extremities. No focal deficits. Labs: Recent Labs 08/27/22 0540 08/26/22 0022 08/25/22 0114 08/24/22 0153 08/23/22 1055 WBC 9.5 8.9 11.4* 13.8* 16.4* HGB 8.6* 8.3* 8.6* 8.7* 8.6* HCT 27.7* 26.6* 27.9* 28.1* 27.2* PLATELET 528* 456* 501* 504* Not Measured MCV 70.7* 70.0* 69.8* 69.4* 69.9* Recent Labs 08/27/22 0540 08/26/22 0022 08/25/22 0114 08/24/22 1421 08/24/22 0153 08/23/22 0230 NA 139 137 138 -- 141 142 CL 106 105 106 -- 106 107 CO2 27 25 24 -- 27 27 K 4.4 4.0 4.1 4.4 3.7 4.2 MAGNESIUM 0.85 0.76 0.82 -- 0.90 0.80 PHOS 3.7 2.8 2.3* -- 2.3* 2.8 CALCIUM 9.3 9.0 8.6 -- 8.6 8.5 BUN 15 12 15 -- 17 16 CREATININE 0.44* 0.38* 0.38* -- 0.45* 0.53* LFTs Recent Labs 08/20/22 1400 PROT 5.6* ALBUMIN 2.5* AST 39* ALT 20 ALKPHOS 213* BILITOT <0.2* BILIDIR 0.1 Coags No results for input(s): INR, PT, PTT, FIBRINOGEN, DDIMER in the last 168 hours. Invalid input(s): THROMBIN TIME Cardiac Enzymes No results for input(s): CK, TROPONINT, PROBNP in the last 168 hours. Endocrine Recent Labs 08/20/22 1400 08/15/22 0000 TSH 1.90 0.28 Recent Labs 08/27/22 0738 08/27/22 0519 08/26/22 2327 08/26/22200408/26/22 1651 08/26/22 1313 08/26/22 1128 08/26/22 0758 08/26/22 0442 08/26/22 0019 08/25/22 1947 08/25/22 1631 POCGLU 114 124 162 138 111 151 130 202* 160 188 182 156 Microbiology: 08/24 Fungitell positive 08/24 BAL Fungal culture positive 08/21 BAL Lower Resp culture NGTD, no microorganisms on gram stain. TTE: 08/19: -Left ventricular systolic function is moderately reduced. The left ventricular ejection fraction is 32% by Dahl's biplane. The apical portions of the LV remain akinetic with preservation of the basal segments. There is no apical thrombus seen with echo enhancing agent. Imaging: CT Chest 08/27: Stable findings of multifocal pneumonia. No interval abnormality. CT Angiogram Coronary Arteries 08/27: Coronary calcium score of 0, consistent with no detectable calcified atherosclerotic plaque burden. Assessment & Plan: Ms. Irving is a 62 year old female with a medical history notable for insulin-dependent diabetes mellitus, bipolar disorder, alcohol use disorder in remission, iron deficiency anemia, and recent L femoral neck fracture s/p surgical fixation presenting in transfer with acute hypoxic respiratory failure, pneumonia, and newly identified heart failure. Stable today without significant changes from preceding days. CT chest and CT angiogram coronary arteries performed today, showing stable pneumonia and coronary calcium score of 0. We will continue to monitor off antibiotics, as she has been improving despite previous positive fungal cultures/fungitell. Will likely defer LHC given results of CT coronary arteries, but will discuss further. Increasing depakote to 250mg q6hr via Dobhoff tube and will also increase seroquel to 100mg tonight. Given stable pressures, will also initiate spironolactone 12.5mg today. Neuro: # Bipolar Disorder - Depakote 250 mg oral liquid per Dobhoff tube. - Continue Seroquel 100mg nightly - Plan to increase depakote to 300mg q6hr tomorrow 08/28, and will check VPA level 08/29. - GAS STATION SUPERVISOR to evaluate, pending recs Pulmonary: # Acute hypoxic respiratory failure, resolved. # Bilateral airspace opacities/multifocal pneumonia - Respiratory support with LFNC PRN; currently on RA - Antibiotics: zosyn, stopped per ID - Fungitell and Fungal Cx positive, no change in management at this time per ID - CT Chest showing persistent pneumonia; appreciate ID assistance. ?? Cardiac: # Distributive Shock # NSTEMI Type I vs Type II # HFrEF (EF 25%) # C/f Stress Cardiomyopathy - LHC potentially this week pending CTA coronaries - D/c DAPT if no indication for LHC or low suspicion for CAD. - ASA 81mg, Plavix 75mg. - Continue Losartan 25mg daily - Continue Metoprolol Tartrate 12.5mg BID - Continue Lovenox - Mg >1, K >4 ?? GI: # GERD c/b Farrell's esophagus & esophagitis # Constipation- resolved # Rectal wall edema 2/2 stool ball - Has Miralax, senna, dulcolax PRN ordered - Continue home pantoprazole 40 BID ?? Endocrine: # Insulin-dependent diabetes - Diabetes Management consulted, appreciate recs - Continue Glargine 25u daily - Continue Lispro 5u q4h - Moderate SSI ?? Hematology/oncology: # Mixed JERRICA and ACD - Oral iron supplementation started 08/21. - Ferritin, Iron, TIBC resulted; mixed picture - Transfuse for Hb <8 - S/p 1u pRBC 08/22 ?? Infectious disease: # Septic shock # Bilateral airspace opacities/multifocal pneumonia # L Hip Fluid Collection # Subcentimeter left posterior upper lobe cavitary lesions - Infectious work-up has not yielded any organisms - S/p BAL 08/21 without any growth to date. - IR, orthopedic surgery consulted for evaluation of L hip fluid collection. No intervention/drainable target. - Stopped zosyn as per ID (08/14- 08/23) - Fungal testing positive no change in management at this time per ID #Routine Diet: Sips and Chips (Give Meds) DVT prophylaxis: LMWH SCD GI Prophylaxis: home PPI Code Status: Attempt Cardiopulmonary Resuscitation - Inpatient Alternative Medical Decision Maker: zac Avila MD Internal Medicine, PGY-1 Cardiology [facility] #[id number] Associated attestation - Milagros Hernandez MD - 08/27/2022 6:25 PM EDT CARDIOLOGY ATTENDING NOTE Patient: Ishan Irving Date of Service: 08/27/2022 Date of Admission: 08/14/2022 Length of Stay Hospital Day 13 days Please see the below note by Dr. Avila for details. I have interviewed and examined the patient independently and I concur with the assessment and plan as documented, with exceptions/additions/emphases as noted below. The case was discussed on cardiology rounds and we reviewed the plan of care with the team and patient. Irritable today; doesn't want to be in the hospital. Hemodynamics stable. Still NPO per GAS STATION SUPERVISOR with enteral nutrition through DHT. Proceeding with CTA coronaries which was not able to be done yesterday.GDMT as tolerated. Attending Attestation and Certification Please see Reynaldo Avila MD's note for details of the patient history of presentation and data. I have discussed, reviewed and agree with the documented History, Physical findings, Assessment and Plan of care. I have examined the patient myself and personally reviewed all studies. In addition, I certify thatI am a D-H credentialed attending provider with admitting privileges and that the patient meets or has met medical necessity to require an inpatient IPI level of care meeting a minimum of two midnights or is on the [facility] inpatient only procedure list (status C) due to: decompensated congestive heart failure requiring IV medication and fluid monitoring and aspiration pneumonia unable to advance oralintake. Milagros Hernandez MD Cardiovascular Medicine Personal Pager [phone] 08/27/2022 6:22 PM * Rober Mensah MD - 08/27/2022 10:28 AM EDT Brief orthopaedic note: Saw pt for tertiary exam and repeat hip exam today. Patient is afebrile stable vitals and WBC continuing to trend down to 9.5 today 08/27/2022. Patient is interactive and conversing well this morning.She denies any pain in her left hip. She has been working with physical therapy and was able to take several steps when ambulating from bed to chair. Exam below: Constitutional: AOx3, NAD Cardiovascular: RRR assessed peripherally Respiratory: Breathing comfortably on RA RUE: Skin is intact. No swelling or erythema. Full painless ROM shoulder/elbow/wrist. No TTP diffusely. Motor intact to deltoid/biceps/triceps/WE/WF/EPL/FPL/IO. Sensation intact to ax/m/r/u nerve dist ributions. 2+ radial pulse. Hand is warm and well perfused. LUE: Skin is intact. No swelling or erythema. Full painless ROM shoulder/elbow/wrist. No TTP diffusely. Motor intact to deltoid/biceps/triceps/WE/WF/EPL/FPL/IO. Sensation intact to ax/m/r/u nerve dist ributions. 2+ radial pulse. Hand is warm and well perfused. RLE: Skin is intact. No swelling or erythema. Full painless ROM hip/knee/ankle. No TTP diffusely. Motor intact to hip flexion/quad/ham/TA/GS/EHL. Sensation intact to DP/SP/T/saphenous/sural nerve nerve distributions. 2+ DP pulse. Foot is warm and well perfused. LLE: Skin is intact. No swelling or erythema. Full painless ROM hip/knee/ankle. No TTP diffusely. Motor intact to hip flexion/quad/ham/TA/GS/EHL. Sensation intact to DP/SP/T/saphenous/sural nerve nerve distributions. 2+ DP pulse. Foot is warm and well perfused. Continued low concern for infectious process in the left hip contributing to her now resolved fevers and elevated WBC. Patient has follow-up with orthopedics as scheduled on 09/16/2022 and we will reevaluate her at that time. Orthopedics to sign off. Please page [phone] with any questions or concerns. Rober Mensah MD 08/27/22 * Nancy Ernst RD - 08/27/2022 8:16 AM EDT Nutrition Progress Note Ishan Irving is a 62 y.o.??female??with h/o bipolar, DM, EtOH, esophagitis, who presented to [facility] 3 days ago after being found unresponsive at home.?Patient found to have likely pneumonia +/- aspiration, newly reduced EF. Reason for Assessment: Follow-up, Tube Feeding Nutrition Recommendations: Enteral Nutrition: Cyclic Peptamen AF at 98ml/hr for 12hrs from [id number] At goal, this will provide: Peptamen AF Total Volume Per Day: 1176 mL Scoops of Protein: 2 Calories per Day: 1411 Protein per Day: 89 g Free Water mL per Day: 955 % RDI: 94 % Can discontinue MVI w/ minerals as En provides >85% of RDI Monitor hydration status on above TFs as they are concentrated. Pt may need additional fluids depending on IVFs, med flushes, p.o. Intake, etc. Monitor weight to trend Monitor BM. Goal of one every 24-48hrs while on EN Monitor lytes. Replete as indicated I was able to discuss plan with provider Cardiology S1 [id number] Mavis Avila MD. Current Nutrition Regimen: Active Orders Diet Sips and Chips (Give Meds) Frequency: Effective Now Number of Occurrences: Until Specified All Active TF Orders: Tubefeeding Orders (From admission, onward) Start Dose/Rate Route Frequency Ordered Stop 08/17/22 1730 tube feeding diet 900 mL 45 mL/hr Per NG tube CONTINUOUS 08/17/22 1641 Average tube feeding provision over past 3 days; 943mL vs daily goal volume of 900 formula (>100% of goal) Average protein powder provision over the past 2 days; 2 scoops vs daily goal of 2 scoops (100% of goal) Tolerance or barriers to meeting needs: increased BM on liquid tylenol Assessment: Lab Results Component Value Date NA 139 08/27/2022 K 4.4 08/27/2022 CL 106 08/27/2022 CO2 27 08/27/2022 BUN 15 08/27/2022 CREATININE 0.44 (L) 08/27/2022 ESTGFR 109 08/27/2022 MAGNESIUM 0.85 08/27/2022 CALCIUM 9.3 08/27/2022 PHOS 3.7 08/27/2022 AST 39 (H) 08/20/2022 ALT 20 08/20/2022 ALKPHOS 213 (H) 08/20/2022 BILITOT <0.2 (L) 08/20/2022 BILIDIR 0.1 08/20/2022 CRP 19.4 (H) 08/21/2022 HA1C 6.2 (H) 08/15/2022 25OHVITD 12 (L) 08/24/2022 IRON 25 (L) 08/21/2022 Lab Results Component Value Date POCGLU 114 08/27/2022 POCGLU 124 08/27/2022 POCGLU 162 08/26/2022 POCGLU 138 08/26/2022 POCGLU 111 08/26/2022 POCGLU 151 08/26/2022 POCGLU 130 08/26/2022 Patient Lines/Drains/Airways Status Active Nutritional LDAs Name Placement date Placement time Site Days Naso/Oral Tube 08/17/22 1142 small bore weighted (Dobhoff) right nostril 08/17/22 1142 right nostril 10 Midline Catheter - Single Lumen 08/14/22 cephalic vein (lateral side of arm), left 08/14/22 -- -- 13 PICC Line - Double Lumen 08/19/22 1655 basilic vein (medial side of arm), right 5 Fr 08/19/22 1655 -- 8 External Catheter 08/23/22 1100 08/23/22 1100 -- 4 Physical Findings Gastrointestinal: feeding tube Tubes: nasogastric tube Oxygen Therapy / Airway Device: None (Room air) Shift Pressure Injury Prevention Occiput: No Injury Thoracic Spine: No Injury Sacral: Redness, Blanchable Ischial - left: No Injury Ischial - right: No Injury Heel - left: No Injury Heel - right: No Injury Elbow - left: No Injury Elbow - right: No Injury Device Sites: ECG Leads, IV sites, O2 sat monitor Last Bowel Movement: 08/27/22 Intake/Output Summary (Last 24 hours) at 08/27/2022 1001 Last data filed at 08/27/2022 0516 Gross per 24 hour Intake 1587.67 ml Output 500 ml Net 1087.67 ml Relevant medications: lovenox, Vit D2, ferrous sulfate, folic acid, lispro, MVI w/ minerals, protonix, thamine, others noted Anthropometrics: Admit Weight: 69 kg Estimated body mass index is 29.96 kg/m?? as calculated from the following: Height as of 08/19/22: 152.4 cm (5'). Weight as of this encounter: 69.6 kg (153 lb 6.4 oz). [place] Body Weight (IBW) (kg): 45.45 Usual Body Weight: 70.3 kg (155 lb) Wt Readings from Last 10 Encounters: 08/27/22 69.6 kg (153 lb 6.4 oz) 08/19/22 73.1 kg (161 lb 2.5 oz) 07/03/22 69.9 kg (154 lb) 03/31/22 74.4 kg (164 lb) 02/12/22 78.7 kg (173 lb 9.6 oz) 09/23/21 78.5 kg (173 lb) 03/01/20 79.4 kg (175 lb) 11/22/18 80.3 kg (177 lb) 12/13/14 86.5 kg (190 lb 12.8 oz) 03/20/14 94 kg (207 lb 3.7 oz) Patient Vitals for the past 168 hrs: Weight 08/27/22 0512 69.6 kg (153 lb 6.4 oz) 08/26/22 0500 71.5 kg (157 lb 11.2 oz) 08/25/22 0600 70 kg (154 lb 5.2 oz) 08/24/22 0500 69.3 kg (152 lb 12.5 oz) 08/23/22 0500 70.6 kg (155 lb 10.3 oz) 08/22/22 0400 72 kg (158 lb 11.7 oz) 08/21/22 0400 72.5 kg (159 lb 13.3 oz) Weight Source: Bed Estimated / Assessed Needs: Fluid Requirements (mL/day): 2562 mL ShineCookie Kcal / K - 1737.5 Kcal (20 Kcal/Kg - 25 Kcal/Kg) Estimated Protein Needs: 83.4 - 104.25 g (1.2 g/Kg - 1.5 g/Kg) Over the last 72hrs Calories Evaluation Enteral Calories (kcal): 1123 Parenteral Calories (kcal): 0 Oral Calories (kcal): 0 Other Calories (kcal): 0 Total Calories (Kcal): 1123 % of Kcal Needs (Kcal/Kg): 123.54 % Nutrition intake and intake history / interview: 08/27: Pt had 7 BM on 08/25 r/t liquid tylenol, d/c per this proposal lead writer's request as liquid tylenol acts as a purgative. BM have slowed and formed since then. Adjusted EN to allow for pt to lay flat at night and increased kcal as pt is now floor status. 4/17: Phos continues to trend low but above 2.0. Pt reports no feelings of hunger at this time, will continue EN at current rate. Wt trending down, but appears consistent w/ wts from 06/2022. Pt does have some wt loss since 02/2022 but is not clinically significant. Will continue to monitor. 08/21: Phos continues to trend low but above 2.0 today (2.4). More responsive than in previous days,but still intubated. Attempting SBT today. Wt relatively stable at this time. Had 1st BM since admit 08/20, will continue to monitor BM and consistency. If stool remain liquid should dc liquid tylenolas it can cause loose stools. 08/18: Phos <2.0 since 08/18 w/ 60mmol of repletion since then, phos 1.4 this AM. EN advanced to goal this AM w/o signs of intolerance. Wt up 4kg since admission and intermittently receiving diuretics, -0.5L since admission 08/17: TF recs as above. Nutrition Focused Physical Exam: Not performed Malnutrition Diagnosis: Not identified (Andrea, JPEN J Parenteral Enteral Nutr. 2011; 36(3): 273-83) Nutrition to continue to follow up while inpatient Nancy Ernst RD Pager #:[phone] * Cydney Moses RN - 08/27/2022 7:44 AM EDT Pt has been confused to situation during shift but easy to re-orient. Pt has a doboff running and wanted to keep the head of her bed flat. Had to remind pt of aspiration precaution and the importanceof keeping the HOB up. Pt has been ringing call marshall consistently but with no basic need request. Bed alarms on for safety. Continue to monitor pt's mental status and reorient as needed. * Shalini Rush RN - 08/26/2022 5:38 PM EDT Patient arrived via bed from [facility] this afternoon in stable condition. VSS. Denies any chest pain/SOB. Feeding tube running at goal (45mL/hr). Patient A+Ox2-3. C/O of mild lower back pain. External female catheter in place d/t frequency and incontinence. Safety maintained, bed alarm on. Call light within reach. Pt oriented to room. * Neva Zhao MSW - 08/26/2022 2:30 PM EDT JUVENILE JUSTICE SPECIALIST received message stating that Ishan's , Antonio, is requesting social work support. Antonio shared that they have been denied support through economic services due to his disability income. 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 Antonio became emotional during conversation, sharing that he is concerned they will lose their home if theycan't pay their bills. JUVENILE JUSTICE SPECIALIST provided support and promised to follow up with resources this afternoon. UPDATE: This JUVENILE JUSTICE SPECIALIST called [facility] to provide information for [facility], [facility], [facility], and the local food pantry. Antonio appreciativeof support and resources. * Afia Bergeron SLP - 08/26/2022 11:53 AM EDT Speech Therapy Note Patient Profile: Ishan Irving is a 62 year old female with a medical history notable for??recent L femoral neck fracture,??bipolar disorder, resolving medication-induced Parkinsonism, insulin-dependent diabetes mellitus,??hx of alcohol use disorder (reported to be in remission for 1.5 years) c/b chronic pancreatitis, iron deficiency anemia,??GERD??c/b??esophagitis &??Farrell's esophagus??presenting in transfer from [facility] on 08/14/2022, suspected to be in cardiogenic shock and found to bein mixed shock with concern for stress cardiomyopathy. GAS STATION SUPERVISOR service was consulted to assess oropharyngeal swallow function post-extubation. Service continues to follow for dysphagia. ?? 24 Hour Events/Subjective: Overnight: -Patient received Seroquel to help sleep -NAEON ?? This AM: - Patient doing fine this AM. Subjective: I want to get back to bed! I just want to get back to bed - eyes start to tear up. Objective: Pt seen for dysphagia management and demonstrated the following: Pain: my feet are pins and needles, I want to get back into the bed now!; denies any other pain Respiratory Status: Room air Current Diet: NPO diet (Give Meds) Feeding / Oral Care Status: Patient requires cues and / or assistance ; min A to hold cup and will raise to mouth to take sip independently (while clinician moves DHT out of way) Cognitive-Linguistic Status: awake/alert, identifies her Jamie at the bedside today; overall flat affect, delayed response time answering questions/following commands; overall requires much encouragement to participate at times, repeatedly asking to just get back yojana bed Command Following: Follows single step commands Requires increased time to complete Positioning: Patient up to chair Oral / Laryngeal Mechanism Clinical Assessment: dry oral mucosa/lingual blade, benefits/allows someoral care (swab to mouth/lips) and ice chips; missing some upper posterior teeth, adequate lower; gross lingual/labial ROM slow but adequate range; vocal quality remains somewhat hypophonic (reportedhoarse at baseline, baseline sig GERD/Farrell's esophagus), likely further impacted by reduced respiratory drive, pt requires much cueing to take larger breath to project voice; volitional and reflexive cough audible but quiet and informally judged reduced productivity as a result Bolus Presentation(s): ?? Ice chips ?? Thin liquid via spoon ?? [place] thickened liquid via spoon ?? via cup ?? Puree Oral Preparatory Phase: reduced acceptance of bolus, slow labial seal around spoon to strip resultsin some dumping of liquid/solid into oral cavity/lingual blade; mildly reduced oral manipulation of bolus, although audible crunching of ice chips; no anterior loss; no oral residue Pharyngeal Phase: appears to initiate pharyngeal swallow in somewhat delayed manner, laryngeal elevation/drive mildly blunted on external palpation, not super robust; cough on initial ice chip, but then no further coughing with additional ice chips x5; reflexive cough after 2/2 thin liquid sips viaspoon, 1/1 nectar thick liquid via cup, and 1/2 applesauce trial via tsp; no cough after 3/3 nectarthick liquid trial via tsp; cough appears to be consistency and volume related in the setting of delayed swallow Esophageal Phase: baseline Farrell's esophagus with reports of post-prandial regurgitation and reflux (per pt's Antonio at the bedside today; Antonio reports pt was being followed closely by Cotton Gr[employer] and was supposed to go for a barium swallow sometime soon so they could look at her esophagus) Education: Pt and pt's , Antonio, verbally educated by this clinician to GAS STATION SUPERVISOR role, results ofthis bedside reassessment, pt current swallow status/function, aspiration risks, safe swallow technique (optimizing upright positioning) and impact of baseline esophageal history on function. Discussed plan as outlined below. Antonio verbalizes understanding and agreement; pt reports I guess so when asked if she understands. Assessment: Pt was seen today for a follow-up GAS STATION SUPERVISOR visit/reassessment. Pt sitting upright in chair today but clearly unhappy with this, requesting multiple times to go back to bed. Somewhat flat affect throughout but will engage with verbal encouragement. Continues to demonstrate overt signs of aspiration (v/s ? Post- prandial aspiration) including reflexive cough after most trials. Suspect positi oning challenges (pt very resistant to sitting upright, in chair or with HOB raised in bed) as wellas baseline esophageal dysfunction (Farrell's esophagus, GERD/regurgitation) likely to place pt at significant risk for aspiration, both potentially during and AFTER swallow - could be a longstandingissue. For now, pt describes the idea of resuming po's as daunting and is encouraged to at least try some ice chips in small amounts with RN supervision while she is awake/alert, sitting upright to stimulate/strengthen swallow mechanism. Pt reports she was to have a barium swallow at baseline (via grain blender) at some point to further assess esophageal function in the settingof known Farrell's esophagus. At this time I suspect would be at significant risk for aspiration during a barium swallow given need for near supine position. Could possibly consider a modified bariumswallow study while in-house, but would like to see her first tolerate longer period of time upright in chair for completion of study. Pt pending transfer to floor per RN/MD. Pt will benefit from continued therapeutic interventions to achieve therapy goals. Diagnosis: oropharyngeal dysphagia, + likely baseline esophageal component given hx Recommendations: Diet: May offer individual ice chips for pleasure or practice w/1:1 RN assistance, only when pt awake/alert, sitting upright PO medications: IV or other alternative means only Continue alternative access (currently with [facility]) for primary nutrition/meds Consider GI input given baseline esophageal history? Aspiration Precautions: Excellent oral care Speech Therapy Goals: Pt will tolerate least restrictive diet without evidence of dysphagia / aspiration. Pt / caregiver will be independent with aspiration precautions, diet modifications, and safe swallowing strategies. Pt will maintain hydration / nutrition with optimal safety and efficiency. Plan: Therapy Frequency (GAS STATION SUPERVISOR Eval): 2-4 times/wk Patient / family are in agreement with treatment plan. Total Minutes (Speech Language Pathology): 25 Thank you for this consult with this patient. Please feel free to page me with any questions or concerns. Afia Bergeron M.S., [facility]-GAS STATION SUPERVISOR Pager: [phone] Speech-Language Pathology Inpatient Rehabilitation Medicine * Moustapha Gallegos MD - 08/26/2022 10:02 AM EDT Images from the original note were not included. Cardiology ICU Progress Note ID: Ishan Irving is a 62 year old female with a medical history notable for recent L femoral neck fracture, bipolar disorder, resolving medication- induced Parkinsonism, insulin-dependent diabetes mellitus, hx of alcohol use disorder (reported to be in remission for 1.5 years) c/b chronic pancreatitis, iron deficiency anemia, GERD c/b esophagitis & Farrell's esophagus presenting in transfer from [facility], suspected to be in cardiogenic shock and found to be in mixed shock with concern for stress cardiomyopathy. 24 Hour Events/Subjective: Overnight: -Patient received Seroquel to help sleep -NAEON This AM: - Patient doing fine this AM. Vasoactive & Sedating Medications: Infusions: Continuous Infusions: ??? tube feeding diet 45 mL/hr at 08/26/22 1000 Objective: Vitals Last value Range last 24 hrs Temperature Temp: 36.7 ??C (98.1 ??F) Temp: [36.2 ??C (97.2 ??F)-36.7 ??C (98.1 ??F)] Heart Rate Heart Rate: 91 Heart Rate: [56-107] Blood Pressure BP: 135/66 BP: (99-135)/(45-73) Art Line BP BP (Arterial Line): 111/70 BP (Arterial Line): -- MAP (NBP): [60 mmHg-88 mmHg] Respiratory Rate Resp: 26 Resp: [15-26] SpO2 SpO2: 97 % SpO2: [95 %-98 %] Oxygen Delivery Oxygen Therapy O2 Device: None (Room air) O2 Flow Rate (L/min): 3 L/min FiO2 (%): 21 % Reason for Oxygen: Titration down from previous higher respiratory or O2 need Intake/Output Summary (Last 24 hours) at 08/26/2022 1147 Last data filed at 08/26/2022 1000 Gross per 24 hour Intake 1619.43 ml Output 450 ml Net 1169.43 ml Patient Vitals for the past 168 hrs: Weight 08/26/22 0500 71.5 kg (157 lb 11.2 oz) 08/25/22 0600 70 kg (154 lb 5.2 oz) 08/24/22 0500 69.3 kg (152 lb 12.5 oz) 08/23/22 0500 70.6 kg (155 lb 10.3 oz) 08/22/22 0400 72 kg (158 lb 11.7 oz) 08/21/22 0400 72.5 kg (159 lb 13.3 oz) 08/20/22 0233 72.3 kg (159 lb 6.3 oz) Admit wt: 69 kg Physical Exam: Gen: Resting comfortably in NAD. Patient appearing muted/very reserved overall. Able to move all extremities but lies very still CV: RRR, no murmurs or gallops noted. Resp: No increased work of breathing. Coarse breath sounds. Abd: Normoactive bowel sounds in all 4 quadrants. Abdomen soft, non-tender, and non-distended. Ext: 2+ distal pulses, no pedal edema. Feet warm to touch. No erythema or swelling surrounding the left hip incision. No observable tenderness to deep palpation of the left hip. Neuro: AOx3, CN grossly intact Moves all extremities. No focal deficits. Labs: Recent Labs 08/26/22 0022 08/25/22 0114 08/24/22 0153 08/23/22 1055 08/23/22 0230 WBC 8.9 11.4* 13.8* 16.4* 16.7* HGB 8.3* 8.6* 8.7* 8.6* 8.7* HCT 26.6* 27.9* 28.1* 27.2* 27.6* PLATELET 456* 501* 504* Not Measured Not Measured MCV 70.0* 69.8* 69.4* 69.9* 69.3* Recent Labs 08/26/22 0022 08/25/22 0114 08/24/22 1421 08/24/22 0153 08/23/22 0230 08/22/22 0339 NA 137 138 -- 141 142 145 CL 105 106 -- 106 107 111* CO2 25 24 -- 27 27 27 K 4.0 4.1 4.4 3.7 4.2 4.1 MAGNESIUM 0.76 0.82 -- 0.90 0.80 0.86 PHOS 2.8 2.3* -- 2.3* 2.8 2.4* CALCIUM 9.0 8.6 -- 8.6 8.5 8.7 BUN 12 15 -- 17 16 20* CREATININE 0.38* 0.38* -- 0.45* 0.53* 0.56* LFTs Recent Labs 08/20/22 1400 PROT 5.6* ALBUMIN 2.5* AST 39* ALT 20 ALKPHOS 213* BILITOT <0.2* BILIDIR 0.1 Coags No results for input(s): INR, PT, PTT, FIBRINOGEN, DDIMER in the last 168 hours. Invalid input(s): THROMBIN TIME Cardiac Enzymes No results for input(s): CK, TROPONINT, PROBNP in the last 168 hours. Endocrine Recent Labs 08/20/22 1400 08/15/22 0000 TSH 1.90 0.28 Recent Labs 08/26/22 1128 08/26/22 0758 08/26/22 0442 08/26/22 0019 08/25/22 1947 08/25/22 1631 08/25/22 1508 08/25/22 1409 08/25/22 1244 08/25/22 1225 08/25/22 1109 08/25/22 0952 POCGLU 130 202* 160 188 182 156 113 146 197 212* 185 162 Microbiology: 08/24 Fungitell positive 08/24 BAL Fungal culture positive 08/21 BAL Lower Resp culture NGTD, no microorganisms on gram stain. 08/21 Fungal, AFB cultures NGTD 08/19 blood cx: NGTD 08/19 lower resp cx: normal upper respiratory wiley 08/19 BCx NGTD 08/18 legionella urinary antigen: neg 08/15 urine cx: insignificant growth 08/15 Covid 19 PCR: neg 08/15 lower resp cx: rare normal upper resp wiley 08/15 blood cx: NGTD 08/15 MRSA: neg 08/14 blood cx: NGTD TTE: 08/19: -Left ventricular systolic function is moderately reduced. The left ventricular ejection fraction is 32% by Dahl's biplane. The apical portions of the LV remain akinetic with preservation of the basal segments. There is no apical thrombus seen with echo enhancing agent. Imaging: CT Chest 08/20: 1. Multifocal lower lobe predominant consolidative opacities with additional upper lobe opacities consistent with multifocal pneumonia. Compared to the prior CT of 08/12/2022 the number and size of the opacities has decreased. Recommend follow-up imaging in 3-6 months to document complete resolution. 2. New small, sub-1 cm early cavitation of multiple opacities predominantly within the posterior left upper lobe and left lower lobe. 3. New curvilinear splenic lesions could represent infarct versus late arterial phase splenic arterial opacification. CT Left Hip 08/20: 1. Uncomplicated left femoral neck ORIF with unchanged postoperative alignment. ?? 2. Moderate skin thickening and subcutaneous stranding about the lateral left hip with lateral left thigh intramuscular edema and fascial thickening. These findings are nonspecific and may be seen in the routine postoperative setting. Underlying soft tissue infection with infectious or inflammatory myositis may also have this appearance. Correlation with physical examination, clinical symptoms, and laboratory findings is recommended. ?? 3. 2.3 x 1.6 x 1.8 cm focus of more coalescent fluid attenuation centered in the subcutaneous fat of the posterolateral thigh roughly at the level of the proximal femoral fixation screw heads. There is no rim-enhancing to suggest a mature, organized abscess at this time. However, this finding could represent phlegmon in appropriate clinical context, or it could represent a postsurgical collection, the contents of which may be sterile or infected. ?? 4. There is a rectal tube in place. However, there remains a large stool ball in the rectum with free fluid versus coalescent edema on both the anterior and posterior margins of the distended rectum. In appropriate clinical context, these findings could represent proctocolitis or stercoral colitis. Assessment & Plan: Ms. Irving is a 62 year old female with a medical history notable for insulin-dependent diabetes mellitus, bipolar disorder, alcohol use disorder in remission, iron deficiency anemia, and recent L femoral neck fracture s/p surgical fixation presenting in transfer with acute hypoxic respiratory failure, pneumonia, and newly identified heart failure. Patient doing fine now s/p antibiotics and extubation. Received Seroquel last night without significant change in mentation this AM. She has been working with GAS STATION SUPERVISOR/PT/OT and would benefit from continuation. Plan to obtain CT chest and CTA Coronaries today/tomorrow. Neuro: # Bipolar Disorder - Depakote 190 mg oral liquid per Dobhoff - Continue Seroquel 25mg nightly - Plan to increase to full home regimen (250mg QPM / 1g Q3PM) by 08/24. - GAS STATION SUPERVISOR to evaluate, pending recs Pulmonary: # Acute hypoxic respiratory failure, resolved. # Bilateral airspace opacities/multifocal pneumonia - Respiratory support with LFNC PRN; currently on RA - Antibiotics: zosyn, stopped per ID - Obtain CT Chest per ID - Fungitell and Fungal Cx positive, no change in management at this time per ID ?? Cardiac: # Distributive Shock # NSTEMI Type I vs Type II # HFrEF (EF 25%) # C/f Stress Cardiomyopathy - C potentially this week pending CTA coronaries - Obtain Coronary CTA when getting CT chest - ASA 81mg, Plavix 75mg. - Continue Losartan 25mg daily - Continue Metoprolol Tartrate 12.5mg BID - Continue Lovenox - Ischemic workup when more stable - Mg >1, K >4 ?? Renal/Fluids/Electrolytes: # MARILIN, resolved. - Likely in setting of low perfusion state, interventions to improve her perfusion as above ?? GI: # GERD c/b Farrell's esophagus & esophagitis # Constipation- resolved # Rectal wall edema 2/2 stool ball - Holding Bowel reg in setting of ~7 BMs yesterday - Has Miralax, senna, dulcolax PRN ordered - Continue home pantoprazole 40 BID ?? Endocrine: # Insulin-dependent diabetes - Diabetes Management consulted, appreciate recs - Continue Glargine 25u daily - Continue Lispro 5u q4h - Moderate SSI ?? Hematology/oncology: # Mixed JERRICA and ACD - Oral iron supplementation started 08/21. - Ferritin, Iron, TIBC resulted; mixed picture - Transfuse for Hb <8 - S/p 1u pRBC 08/22 ?? Infectious disease: # Septic shock # Bilateral airspace opacities/multifocal pneumonia # L Hip Fluid Collection # Subcentimeter left posterior upper lobe cavitary lesions - Infectious work-up has not yielded any organisms - S/p BAL 08/21 without any growth to date. - IR, orthopedic surgery consulted for evaluation of L hip fluid collection. No intervention/drainable target. - Stopped zosyn as per ID (08/14- 08/23) - Fungal testing positive no change in management at this time per ID #Routine Diet: NPO diet (Give Meds) DVT prophylaxis: LMWH SCD GI Prophylaxis: home PPI Code Status: Attempt Cardiopulmonary Resuscitation - Inpatient Alternative Medical Decision Maker: zac Gallegos MD Internal Medicine, PGY-1 Cardiology [facility] #[id number] Associated attestation - Milagros Hernandez MD - 08/26/2022 5:37 PM EDT CARDIOLOGY ATTENDING NOTE Patient: Ishan Irving Date of Service: 08/26/2022 Date of Admission: 08/14/2022 Length of Stay Hospital Day 12 days Please see the below note by Dr. Gallegos for details. I have interviewed and examined the patient independently and I concur with the assessment and plan as documented, with exceptions/additions/emphases as noted below. The case was discussed on cardiology rounds and we reviewed the plan of care withthe team and patient. Ishan is continuing to make progress. She is more mobile and interactive each day, although remains reserved. She has been vitally stable. She is still unsafe for any oral intake and we continue TFs via NGT pending further improvement. She needs aggressive rehabilitation in multiple areas. Will proceed with CT chest /CTA coronaries for assessment of interval change in her cavitary pneumonia (cur rently off antibiotics with stable respiratory status, no fever and resolved leukocytosis) and for obstructive ASCVD underlying her cardiomyopathy. Seroquel to be added back (home med) scheduled at areduced dose this evening, with slow up-titration. She is appropriate for transfer out to a step down bed; she still requires extensive nursing care/attention. Attending Attestation and Certification Please see Moustapha Gallegos MD's note for details of the patient history of presentation and data. I have discussed, reviewed and agree with the documented History, Physical findings, Assessment and Plan of care. I have examined the patient myself and personally reviewed all studies. In addition, I certify thatI am a [facility] credentialed attending provider with admitting privileges and that the patient meets or has met medical necessity to require an inpatient IPI level of care meeting a minimum of two midnights or is on the [facility] inpatient only procedure list (status C) due to: acute respiratory compromise and/or hypoxia requiring assessment every 4 hours and the ability to respond immediately to the patient's needs and acute cardiomyopathy requiring further evaluation and therapy and acute toxic metabolic encephalopathy. Milagros Hernandez MD Cardiovascular Medicine Personal Pager [phone] 08/26/2022 5:28 PM * Gene Young, PT - 08/26/2022 10:00 AM EDT Physical Therapy Note Treatment Number PT: 3 Patient profile: Ishan Irving is a 62 y.o. female admitted on 08/14/2022 with a medical history notable for??recent L femoral neck fracture,??bipolar disorder, resolving medication-induced Parkinsonism, insulin-dependent diabetes mellitus,??hx of alcohol use disorder (reported to be in remission for 1.5 years) c/b chronic pancreatitis, iron deficiency anemia,??GERD??c/b??esophagitis &??Farrell's esophagus??presenting in transfer from [facility], suspected to be in cardiogenic shock and found to be in mixed shock with concern for stress cardiomyopathy. She is s/p ORIF left femoral neck fracture 5 days ago at OSH. Interval History: remains in [facility], non verbal during the session. Social History: single level home w ramp to enter. 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 Pt drives, does all community chores. Does have a RW avail at home which she had been using since ORIF. Fall Hx: Spouse reports that pt slipped in a puddle of water left by the dog which is the cause of her hip fx Precautions/Special Considerations: WBAT L hip, Fall risk, variable mental status Mobility and Positioning Recommendations: ?? Pt. Transfers bed to chair w RW and Ax 2 with therapy, recommend nursing staff utilize Mechanical Lift for OOB transfers. ?? Please encourage up to chair for meal times as able. Subjective: Pt's eyes were open, she did not attempt to communicate at all. Objective: Patient seen for physical therapy and demonstrated the following: Pain: no pain behaviors Vital Signs: on room air. ?? Supine to sit w max assist of 2, she did not assist. ?? Once positioned in sitting and feel on the floor, sitting balance was fair to good. She did not need assist to maintain sitting. ?? Sit to stand w Max A x 2. ?? 4 steps EOB to chair w max assist of 2 and verbal cues. She did take a few very small steps to the chair. ?? She needed max assist of 2 to lift and scoot back in the chair. ?? She refused ex's in sitting. aa sh ff, passive ankle pumps performed. X 10 ?? Pt left in bedside recliner chair, with all needs met, with call marshall in reach and with family at the bedside following visit. Education: Pt edu re: goals of rx, activity progression Assessment: Ishan Irving was seen today for physical therapy treatment session for continuation of POC. Pt was not very interactive today, but willing to get to the chair with encouragement. Pt required max assist for bed mobility and to stand. not able to reliably use a walker sot stand pivot with assist of 2 was needed. Poor stepping quality and initiative. Pt will benefit from ongoing t herapeutic interventions to achieve therapy goals. Discharge Recommendations: Based on the current findings, Anticipated Discharge Disposition (PT): swing bed rehabilitation facility when medically ready for hospital discharge. Consult Recommendations: No other consults recommended at this time. Equipment needs: none Anticipated Equipment Needs at Discharge (PT): to be determined Physical Therapy Goals: ongoing To be achieved by 09/07/22: ?? 1. Pt. will demonstrate understanding of appropriate exercises and perform them independently or with family. 2. Pt. will perform bed mobility with modified independence. 3. Pt. will perform sit to stand transfers with min A using a front wheeled walker. 4. Pt. will ambulate 10 feet with mod A using a a front wheeled walker. Pt. will ascend/descend step/stairs sufficient for home using rail and assist of 1 Plan: Therapy Frequency (PT): 2-4 times/wk for skilled PT rx as outlined in initial evaluation. Patient agrees with plan as stated. Time IN / OUT: 0902-3816 Total Minutes, Physical Therapy: 20 Billing Code: TA x 1 GENE YOUNG, PT Pager: [phone] Physical Therapy Inpatient Rehabilitation Department * Elsie Erickson, CELL OPERATION SUPERVISOR - 08/26/2022 8:37 AM EDT Follow Up Diabetes Consult Patient Interview Blood glucose values and insulin use reviewed. Objective Temp: [36.1 ??C (97 ??F)-36.5 ??C (97.7 ??F)] Heart Rate: [56-107] Resp: [15-26] BP: (99-135)/(45-84) SpO2: [95 %-99 %] Heart Rate from SpO2: -- Current Regimen from previous note 1. Lantus 25 units Please keep Insulin IV drip running for at least 2 hours after patient receives Lantus bolus. Drip should be running at less than 3 units per hour and glucose less than 200mg/dl prior to discontinuing the drip. ?? 2. Tube feed associated Lispro: 4 units Q 4 hours to cover 20 grams carbohydrates in her Peptamen AF running at 45 mls hr continuous. IF tube feed stops, this needs to be held. If formula or rate changes, please call for new orders, this is based on a 1:5 insulin to carb ratio 3. Correction Lispro, ISF moderate 4. Diet: Peptamen AF at 45mls/hr continuous. 5. Monitoring: Q1--> Q4 Recent Glucose Levels Recent Labs 08/26/22 0758 08/26/22 0442 08/26/22 0019 08/25/22 1947 08/25/22 1631 08/25/22 1508 08/25/22 1409 08/25/22 1244 08/25/22 1225 08/25/22 1109 08/25/22 0952 08/25/22 0859 POCGLU 202* 160 188 182 156 113 146 197 212* 185 162 137 ASSESSMENT Ishan Irving is a 62 year old female with a medical history notable for??recent L femoral neck fracture,??bipolar disorder, resolving medication- induced Parkinsonism, insulin-dependent diabetesmellitus,??hx of alcohol use disorder (reported to be in remission for 1.5 years) c/b chronic pancreatitis, iron deficiency anemia,??GERD??c/b??esophagitis &??Farrell's esophagus??presenting in transfer from [facility], suspected to be in cardiogenic shock and found to be in mixed shock with concern for stress cardiomyopathy. A1C of 6.2% upon admission suggesting an average BG of 131 mg/dL for the past 6-8 weeks. Currently has variability of blood glucose levels while hospitalized requiring adjustment of insulin regimen and DM medications. ?? Patient remains on a tube feeding diet Peptamen AF by NG tube continuous at 45mls/hr. Lispro 4 units currently ordered based on a a 1:5 insulin to carb ratio to cover the 20 grams carbohydrates she is receiving with this feed at this rate. Given continued corrections will increased Q 4 hour lispro to 5 units, this adjusts carb ratio to 1:4. ?? Plan: 1. Lantus 25 units ?? 2. Tube feed associated Lispro: 5 units Q 4 hours to cover 20 grams carbohydrates in her Peptamen AF running at 45 mls hr continuous. IF tube feed stops, this needs to be held. If formula or rate changes, please call for new orders, this is based on a 1:4 insulin to carb ratio 3. Correction Lispro, ISF moderate 4. Diet: Peptamen AF at 45mls/hr continuous. 5. Monitoring: Q4 ?? Discharge Considerations: Medications - Outpatient treatment regimen recommendations pending based on the hospital course. okay with transition to Lantus, he is unclear why she is on NPH Monitoring - continue BG tid ac & hs Elsie Erickson APRN [facility] Endocrinology Diabetes Management Pager [phone] * Chiquita Mukherjee, PT - 08/25/2022 5:24 PM EDT Physical Therapy Note Treatment Number PT: 2 Patient profile: Ishan Irving is a 62 y.o. female admitted on 08/14/2022 with a medical history notable for??recent L femoral neck fracture,??bipolar disorder, resolving medication-induced Parkinsonism, insulin-dependent diabetes mellitus,??hx of alcohol use disorder (reported to be in remission for 1.5 years) c/b chronic pancreatitis, iron deficiency anemia,??GERD??c/b??esophagitis &??Farrell's esophagus??presenting in transfer from [facility], suspected to be in cardiogenic shock and found to be in mixed shock with concern for stress cardiomyopathy. She is s/p ORIF left femoral neck fracture 5 days ago at OSH. Interval History: NKAE Social History: single level home w ramp to enter. 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 Pt drives, does all community chores. Does have a RW avail at home which she had been using since ORIF. Fall Hx: Spouse reports that pt slipped in a puddle of water left by the dog which is the cause of her hip fx Precautions/Special Considerations: WBAT L hip, Fall risk, variable mental status Mobility and Positioning Recommendations: ?? Pt. Transfers bed to chair w RW and Ax 2 with therapy, recommend nursing staff utilize Mechanical Lift for OOB transfers. ?? Please encourage up to chair for meal times as able. Subjective: I dont want to fall. I'm afraid I'll fall Objective: Patient seen for physical therapy and demonstrated the following: Pain: no rating on VAS; denies in supine, 6/10 per FACES with initial transfer to EOB sitting and initial standing; 4/10 per faces on 2nd trial Vital Signs: stable t.o rx, see flowrow for specifics ?? Supine to sit w mod - max A x2 w max cues ?? Min - mod A for static sitting at EOB ?? Sit to stand w Max A x 2 and RW w max cues ?? 4 steps EOB to chair w RW and Max A x 2 ?? Pt left in bedside recliner chair, with all needs met, with call marshall in reach and with family at the bedside following visit. Education: Pt edu re: goals of rx, activity progression Assessment: Ishan Irving was seen today for physical therapy treatment session for continuation of POC. Pt tolerated rx well this date hemodynamically and was able to make appropriate functional progress. Pt continues to minimally verbal, but does follow simple single step commands with increased time. Of note, pt spouse does note that pt is customarily non-verbal when she is annoyed/angry/upset and he does not find her behavior to be out of her ordinary. Pt will benefit from ongoing therapeutic interventions to achieve therapy goals. Discharge Recommendations: Based on the current findings, Anticipated Discharge Disposition (PT): swing bed rehabilitation facility when medically ready for hospital discharge. Consult Recommendations: No other consults recommended at this time. Equipment needs: none Physical Therapy Goals: To be achieved by 09/07/22: ?? 1. Pt. will demonstrate understanding of appropriate exercises and perform them independently or with family. 2. Pt. will perform bed mobility with modified independence. 3. Pt. will perform sit to stand transfers with min A using a front wheeled walker. 4. Pt. will ambulate 10 feet with mod A using a a front wheeled walker. Pt. will ascend/descend step/stairs sufficient for home using rail and assist of 1 Plan: Therapy Frequency (PT): 2-4 times/wk for skilled PT rx as outlined in initial evaluation. Patient agrees with plan as stated. Time IN / OUT: 1045 - 1126 Total Minutes, Physical Therapy: 41 Billing Code: ta x 3 CHIQUITA MUKHERJEE PT Pager: [phone] Physical Therapy Inpatient Rehabilitation Department * Shea Wilkinson - 08/25/2022 4:15 PM EDT Yony Encounter Note Patient Name: Ishan Irving : [id number] MR#: [id number] Admit Date: 08/14/2022 11:11 PM Hospital Day 11 days Narrative: On unit rounds patient makes eye contact and waves at me repeatedly. I enter room and ask if she wanted me. She says she needs help when asked what for, she stated tomorrow. She repeatedly asked me for help. I ask if she wants any spiritual support, she says yes and then yes again when asked ifshe would like a short prayer. She then shared that she wants to go home and is visibly in distress. After a long silence, she says that she has a great humberto. We talk about her dog a little bit. After another silence I ask if there is anything else I can help with before I go and she asks me to hold her hand. Assessment: The patient is struggling with her hospital stay and it appears difficult for her to communicate. She is visibly upset and wants to leave and at one point was trying to get up. Intervention and Outcome: Offered compassionate presence, reflective listening and short prayer. The patient asked for hand holding at one point and shared a few things with me. Communication was difficult. Follow-up: Available if requested. Time in Direct Care: 11 min. Shea Wilkinson 08/25/2022 * Shashi Young - 08/25/2022 1:30 PM EDT Marketing Automation Analyst Encounter Note Patient Name: Ishan Irving : [id number] MR#: [id number] Admit Date: 08/14/2022 11:11 PM Hospital Day 11 days Narrative: Self initiate visit to patient for Spiritual support in a regular unit rounds. Assessment: Patient is awake, alert, oriented and could respond. Patient is not feeling great at the time of this visit. Patient says, she is feeling tired. Patient's nurse is trying to to transfer a phone call to patient. I assisted patient in receiving the phone call. Intervention and Outcome: I offered patient Pastoral presence, Empathetic listening, Spiritual/Emotional support and encouragement. I helped patient pick her transferred phone call. Follow-up: As needed. Time in Direct Care: Yessenia Young 08/25/2022 * Adrienne Adler, OT - 08/25/2022 12:58 PM EDT Occupational Therapy Evaluation Patient profile: Ishan Irving is a 62 y.o. female admitted on 08/14/2022 with a medical history notable for??recent L femoral neck fracture,??bipolar disorder, resolving medication-induced Parkinsonism, insulin-dependent diabetes mellitus,??hx of alcohol use disorder (reported to be in remission for 1.5 years) c/b chronic pancreatitis, iron deficiency anemia,??GERD??c/b??esophagitis &??Farrell's esophagus??presenting in transfer from [facility], suspected to be in cardiogenic shock and found to be in mixed shock with concern for stress cardiomyopathy. She is s/p ORIF left femoral neck fracture 5 days ago. Past Medical History: Diagnosis Date ??? Bipolar disorder 02/12/2022 Past Surgical History: Procedure Laterality Date ??? PRO COLONOSCOPY, BIOPSY N/A 03/20/2016 COLONOSCOPY FLEXIBLE, WITH BX performed by David Dejesus MD at [facility] ??? PRO COLONOSCOPY, DIAGNOSTIC N/A 03/01/2020 COLONOSCOPY, DIAGNOSTIC performed by David Dejesus MD at [facility] ??? PRO ENDOSCOPIC US EXAM, ESOPH N/A 03/31/2022 UPPER EUS- ENDOSCOPIC ULTRASOUND performed by David Dejesus MD at [facility] ??? PRO UPPER GI ENDOSCOPY, BIOPSY N/A 04/03/2014 UPPER GASTROINTESTINAL ENDOSCOPY,WITH BIOPSY SINGLE OR MULTIPLE performed by [facility] MDat [facility] ??? PRO UPPER GI ENDOSCOPY, BIOPSY N/A 03/20/2016 EGD WITH BIOPSY performed by David Dejesus MD at [facility] ??? PRO UPPER GI ENDOSCOPY, BIOPSY N/A 11/22/2018 EGD WITH BIOPSY (WRVU 2.49) performed by David Dejesus MD at [facility] ??? PRO UPPER GI ENDOSCOPY, BIOPSY N/A 03/01/2020 UPPER GASTROINTESTINAL ENDOSCOPY,WITH BIOPSY SINGLE OR MULTIPLE (WRVU 2.49) performed by David Dejesus MD at [facility] ??? PRO UPPER GI ENDOSCOPY, BIOPSY N/A 09/23/2021 EGD WITH BIOPSY (WRVU 2.49) performed by David Dejesus MD at [facility] ??? PRO UPPER GI ENDOSCOPY, BIOPSY N/A 03/31/2022 EGD WITH BIOPSY (WRVU 2.49) performed by David Dejesus MD at [facility] ??? PRO UPPER GI ENDOSCOPY, BIOPSY N/A 07/03/2022 EGD WITH BIOPSY (WRVU 2.49) performed by David Dejesus MD at [facility] ??? PRO UPPER GI ENDOSCOPY, DIAGNOSTIC N/A 04/03/2014 EGD, UPPER GI ENDOSCOPY performed by David Dejesus MD at [facility] ??? PRO UPPER GI ENDOSCOPY, DIAGNOSTIC N/A 03/01/2020 EGD, UPPER GI ENDOSCOPY performed by David Dejesus MD at [facility] Social History: Patient lives with her in a private home Home Setup: 3 HATTIE, then single floor DME: RW, rollator Baseline ADL/Mobility: Independent all ADL/IADL tasks. Drives. Ambulates w/o any AD. Her didier disability and she is his primary caregiver Precautions/Special Considerations: Fall; LLE WBAT; Dobhoff tube; Mcrae Subjective: Tj Re: When asked where she was Objective: Seen today for OT evaluation. Cognitive Status/Behavior: ?? Behavior / Mood: Flat affect, requires encouragement to participate, Alert ?? Alert and oriented to: Oriented to self, place, month. Stated it was 2020 ?? Follows commands: 1 step, 50% of the time, requires increased time and requires repetition ?? Attention: difficulty attending to task/directions and requires cues to redirect ?? Safety awareness: decreased insight into deficits and moderate impairment Vision & Perception: ?? Glasses not present; report she wears most of the time Communication: Responded 1 word to questions Range of motion, strength, coordination: Hand dominance: right Bilateral shoulders 3-/5, elbow 3/5, hands 3/5. R hand edema noted Sensation: Intact Activities of Daily Living: Self-feeding: Currently NPO Grooming: Completed oral care & hair styling with Mod A seated in her bedside chair Dressing: Dependent Bathing: Washed face with Mod A and use of RUE, seated in her bedside chair. Dependent for LB Toileting: Transfer: N/A Hygiene: N/A Functional Mobility: Supine to sit: Max A x 2 to R side of the bed with HOB elevated Sit to stand: Max A x 2 with use of a RW and knee blocking Ambulation: Few steps from bed to chair with Max A x 2, use of a RW Stand to sit: Max A x 2 Sit to supine: N/A Balance: Sitting balance: Fair; Required CGA Standing balance: Poor; Max A x 2 Vitals: BP 115/62; Sp02 98%; HR 80 Pain: Did not rate, noted pain to L hip upon standing Skin: Not formally assessed; L hip incision noted Education: patient/ have been educated on Role of occupational therapy/rehabilitation, Transfers, Assistive device/technique, ADL, Positioning, Safety, Functional Mobility, Balance, Recommendations and Discharge planning and verbalizes understanding. Patient status, treatment, and mobility recommendations discussed with nursing. Assessment: Pt has been seen for occupational therapy evaluation. Ishan Irving presents with the following performance skill deficits and client factors: increased pain, decreased activity tolerance, decreased flexibility/ROM, decreased strength, decreased sitting/standing balance, visual deficits, cognitive deficits, communication deficits, deconditioning, compromised mobility status andcoping. These performance deficits have led to activity limitations and participation restrictions in the following areas of occupation: dressing, bathing, grooming, toileting, self-feeding, transfers /mobility, rest/sleep, home management, work, leisure, driving, community mobility, communication and social participation. Patient presented as alert, with a flat affect. She noted to respond 1 wordanswers and follow 1 step commands on her terms. She required Max A x 2 to transfer from bed to chair with use of a RW. Once seated, she required Mod/Max A for UB and Dependent for LB ADLs. She will require a rehab stay. Pt would benefit from further inpatient OT interventions to address performance deficits and maximize participation and independence with occupations of daily living. Equipment Needs Upon Discharge (OT): to be determined Anticipated Discharge Disposition (OT): [facility] facility Activity Recommendations: ?? Encourage use of coping & calming strategies ?? Give choices when possible to support feelings of autonomy ?? Frequent orientation verbally & visually with calendars/clocks/whiteboard ?? Keep glasses, hearing aides, etc within reach & offer to pt as appropriate ?? Facilitate a normal sleep-wake cycle ?? Provide brief, clear instruction and direction from one source at a time ?? Provide calming music, favorite TV programs, magazines or newspapers ?? Utilize upright chair position using bed features or transfer to recliner chair as appropriate with mechanical lift ?? Encourage participation in ADL's by providing set up A on tray table and physical assist only asneeded Goals: To be achieved by 09/08/22: Patient will complete toileting tasks (hygiene, clothing management, transfers) with Mod A and withAE, as needed Patient will ambulate household distances with Mod A and with AD, as needed Patient will be consistently A&Ox4 with external cues Patient will complete UB/LB sponge bathing tasks with Min A, while seated with AE, as needed Patient will complete grooming task (comb hair, brush teeth) with supervision, seated EOB Pt will follow 2 step motor command 5/5 times during session Plan: OT: Therapy Frequency (OT): 2-4 times/wk Planned OT interventions: Role of occupational therapy/rehabilitation, Transfers, Assistive device/technique, Adaptive equipment training, ADL, Exercise, Breathing exercises, Positioning, Safety, Precautions/Protocol, Functional Mobility, Activity pacing/Energy conservation, Home Management, Balance, Recommendations, Family training and Discharge planning. Total Minutes, Occupational Therapy: 39 (10:45-11:24) OT Evaluation Code Rationale: ?? Diagnosis & Pertinent Co-Morbidities affecting Plan of Care: see PMHx ?? Occupational Profile & Client History: Brief Expanded Extensive x ?? Assessment of Occupational Performance: 1-3 performance deficits 3-5 performance deficits 5 + performance deficits x ?? Clinical Decision Making: Low Moderate High x Clinical decision making of high complexity using standardized patient assessment instrument and measurable assessment of functional outcome. Pager: [phone] ADRIENNE ADLER OT 08/25/2022 Occupational Therapy Rehabilitation Department * Danielito Oswald MD - 08/25/2022 11:03 AM EDT CARDIAC CRITICAL CARE ATTENDING STAFF PROGRESS NOTE Patient seen and examined. Ishan Irving is a 62 y.o. female with: Active Hospital Problems Diagnosis ??? Bipolar disorder ??? T2DM (type 2 diabetes mellitus) Resolved Hospital Problems Diagnosis Date Resolved ??? Shock 08/22/2022 ASSESSMENT, MANAGEMENT, and DECISION MAKING: Neuro: Pain controlled, neuro intact. Continuing to reintroduce home depakote. Holding Seroquel fornow given prolonged emergence. PT/OT/Rehab continues. CV: HDs off pressors. Continuing BB, statin. Add ARB. Consider further coronary evaluation with either coronary CT of cath. LVEF 32%. Resp: Oxygenation adequate on NC. Would benefit from ambulation. Will plan for chest CT tomorrow for interval changes given multilobular pneumonia. Endo: Insulin per diabetes team. GI: TFs, appreciate speech input. PPI. Renal: Monitor UOP, replete lytes as appropriate. Cr Heme: ASA, plavix, lovenox. Continuing precursors to erythropoiesis. ID: Afebrile. Jacky in BAL, Fungitell positive. ID re-engaged. EXAM: Patient Vitals for the past 168 hrs: Weight 08/25/22 0600 70 kg (154 lb 5.2 oz) 08/24/22 0500 69.3 kg (152 lb 12.5 oz) 08/23/22 0500 70.6 kg (155 lb 10.3 oz) 08/22/22 0400 72 kg (158 lb 11.7 oz) 08/21/22 0400 72.5 kg (159 lb 13.3 oz) 08/20/22 0233 72.3 kg (159 lb 6.3 oz) 08/19/22 0206 73.1 kg (161 lb 2.5 oz) Temp: [36.1 ??C (97 ??F)-36.6 ??C (97.9 ??F)] Heart Rate: [71-100] Resp: [12-27] BP: (96-141)/(47-81) SpO2: [94 %-100 %] Heart Rate from SpO2: -- Physical Exam Awake when prompted Mildly coarse bilaterally RRR, no m S/NT WWP Recent Results (from the past 24 hour(s)) POCT Glucose Result Value Ref Range POC Glucose 183 65 - 199 mg/dL PTH Result Value Ref Range PTH 60 15 - 65 pg/mL Vitamin D, 25-Hydroxy Result Value Ref Range 25-OH Vit D Total 12 (L) 21 - 100 ng/mL 25-OH Vit D Interp Deficient POCT Glucose Result Value Ref Range POC Glucose 185 65 - 199 mg/dL POCT Glucose Result Value Ref Range POC Glucose 166 65 - 199 mg/dL POCT Glucose Result Value Ref Range POC Glucose 168 65 - 199 mg/dL Potassium Result Value Ref Range Potassium 4.4 3.5 - 5.0 mmol/L POCT Glucose Result Value Ref Range POC Glucose 160 65 - 199 mg/dL POCT Glucose Result Value Ref Range POC Glucose 147 65 - 199 mg/dL POCT Glucose Result Value Ref Range POC Glucose 131 65 - 199 mg/dL POCT Glucose Result Value Ref Range POC Glucose 136 65 - 199 mg/dL POCT Glucose Result Value Ref Range POC Glucose 185 65 - 199 mg/dL POCT Glucose Result Value Ref Range POC Glucose 195 65 - 199 mg/dL POCT Glucose Result Value Ref Range POC Glucose 188 65 - 199 mg/dL POCT Glucose Result Value Ref Range POC Glucose 198 65 - 199 mg/dL POCT Glucose Result Value Ref Range POC Glucose 186 65 - 199 mg/dL Magnesium Result Value Ref Range Magnesium 0.82 0.69 - 1.07 mmol/L Phosphorus Result Value Ref Range Phosphorus 2.3 (L) 2.5 - 4.5 mg/dL Basic Metabolic Panel (non-fasting) Result Value Ref Range Glucose Lvl 186 65 - 199 mg/dL BUN 15 8 - 18 mg/dL Creatinine 0.38 (L) 0.70 - 1.20 mg/dL Sodium 138 135 - 145 mmol/L Potassium 4.1 3.5 - 5.0 mmol/L Chloride 106 98 - 107 mmol/L CO2 24 22 - 31 mmol/L Anion Gap 8 5 - 15 mmol/L Calcium 8.6 8.5 - 10.5 mg/dL Estimated GFR 113 >=60 mL/min/1.73 m?? Hemogram Result Value Ref Range WBC 11.4 (H) 4.0 - 9.5 x10(3)/mcL RBC 4.00 4.00 - 5.21 x10(6)/mcL Hemoglobin 8.6 (L) 11.7 - 15.5 g/dL Hematocrit 27.9 (L) 35.7 - 45.8 % MCV 69.8 (L) 82.6 - 94.4 fL MCH 21.5 (L) 27.1 - 32.0 pg MCHC 30.8 (L) 31.7 - 35.0 g/dL Platelets 501 (H) 145 - 357 x10(3)/mcL RDWSD Not Measured 37.0 - 46.0 fL RDWCV Not Measured 11.5 - 14.1 % MPV 9.8 7.6 - 12.9 fL nRBC % Auto 0.0 % nRBC Abs Auto 0.000 0.000 - 0.000 x10(3)/mcL Differential, Automated Result Value Ref Range Neutrophils % 72.4 % Neutr Abs (ANC) 8.27 (H) 1.70 - 6.10 x10(3)/mcL Lymphocytes % 15.6 % Lymphocytes Abs 1.8 0.9 - 3.2 x10(3)/mcL Monocytes % 8.5 % Monocyte Abs 1.0 (H) 0.3 - 0.9 x10(3)/mcL Eosinophils % 2.3 % Eosinophils Abs 0.3 0.0 - 0.4 x10(3)/mcL Basophils % 0.4 % Basophils Abs 0.0 0.0 - 0.1 x10(3)/mcL Immature Gran % 0.80 % Almaz Gran Abs 0.09 (H) 0.00 - 0.04 x10(3)/mcL Scan, Peripheral Blood Result Value Ref Range Plat Estimate Increased RBC Morphology Abnormal Macrocytes 1-5 /HPF Microcytes 6-10 /HPF Hypochromia Slight Polychromasia Present >5/HPF Ovalocytes 1-5 /HPF Target Cells 1-5 /HPF Connor Cells 1-5 /HPF POCT Glucose Result Value Ref Range POC Glucose 163 65 - 199 mg/dL POCT Glucose Result Value Ref Range POC Glucose 157 65 - 199 mg/dL POCT Glucose Result Value Ref Range POC Glucose 169 65 - 199 mg/dL POCT Glucose Result Value Ref Range POC Glucose 202 (H) 65 - 199 mg/dL POCT Glucose Result Value Ref Range POC Glucose 137 65 - 199 mg/dL POCT Glucose Result Value Ref Range POC Glucose 162 65 - 199 mg/dL IS PATIENT CRITICALLY ILL ? Is there a high potential of sudden, clinically significant, or life threatening deterioration? No Is there a need for direct personal assessment and management to treat/prevent multiple vital organfailure/deterioration? No * Rober Mensah MD - 08/25/2022 8:30 AM EDT Brief orthopaedic note: Saw patient this morning to attempt tertiary exam. She is afebrile with stable vitals on RA. Her WBC continues trending down to 11.4 today (13.8). She is extubated and per her who is at bedside has been conversing and responding to questions. She worked with PT yesterday and was able to stand at bedside at bedside and transfer to bedside chair. On my exam this morning she was not responding to any questions. She was alert and tracking. She did occasionally nod yes/no when asked regarding pain in her extremities. She did not appear to have significant discomfort when I ranged her hip fully. Will reattempt tertiary exam and left hip exam when patient is more interactive and participatory. Rober Mensah MD 08/25/22 * Moustapha Gallegos MD - 08/25/2022 6:38 AM EDT Images from the original note were not included. Cardiology ICU Progress Note ID: Ishan Irving is a 62 year old female with a medical history notable for recent L femoral neck fracture, bipolar disorder, resolving medication- induced Parkinsonism, insulin-dependent diabetes mellitus, hx of alcohol use disorder (reported to be in remission for 1.5 years) c/b chronic pancreatitis, iron deficiency anemia, GERD c/b esophagitis & Farrell's esophagus presenting in transfer from [facility], suspected to be in cardiogenic shock and found to be in mixed shock with concern for stress cardiomyopathy. 24 Hour Events/Subjective: Overnight: -Patient received trazodone x1 to help sleep -NAEON This AM: - Patient doing fine this AM. Vasoactive & Sedating Medications: Infusions: Continuous Infusions: ??? tube feeding diet 45 mL/hr at 08/25/22 1000 ??? insulin regular human 1.75 Units/hr (08/25/22 1110) Objective: Vitals Last value Range last 24 hrs Temperature Temp: 36.1 ??C (97 ??F) Temp: [36.1 ??C (97 ??F)-36.6 ??C (97.9 ??F)] Heart Rate Heart Rate: 75 Heart Rate: [71-100] Blood Pressure BP: 115/62 BP: (96-141)/(47-81) Art Line BP BP (Arterial Line): 111/70 BP (Arterial Line): (111)/(70) MAP (NBP): [62 mmHg-92 mmHg] Respiratory Rate Resp: 21 Resp: [12-27] SpO2 SpO2: 99 % SpO2: [94 %-100 %] Oxygen Delivery Oxygen Therapy O2 Device: None (Room air) O2 Flow Rate (L/min): 3 L/min FiO2 (%): 21 % Reason for Oxygen: Titration down from previous higher respiratory or O2 need Intake/Output Summary (Last 24 hours) at 08/25/2022 1111 Last data filed at 08/25/2022 1000 Gross per 24 hour Intake 1572.81 ml Output 1 ml Net 1571.81 ml Patient Vitals for the past 168 hrs: Weight 08/25/22 0600 70 kg (154 lb 5.2 oz) 08/24/22 0500 69.3 kg (152 lb 12.5 oz) 08/23/22 0500 70.6 kg (155 lb 10.3 oz) 08/22/22 0400 72 kg (158 lb 11.7 oz) 08/21/22 0400 72.5 kg (159 lb 13.3 oz) 08/20/22 0233 72.3 kg (159 lb 6.3 oz) 08/19/22 0206 73.1 kg (161 lb 2.5 oz) Admit wt: 69 kg Physical Exam: Gen: Resting comfortably in NAD. Patient appearing muted/very reserved overall. Able to move all extremities but lies very still CV: RRR, no murmurs or gallops noted. Resp: No increased work of breathing. Coarse breath sounds. Abd: Normoactive bowel sounds in all 4 quadrants. Abdomen soft, non-tender, and non-distended. Ext: 2+ distal pulses, no pedal edema. Feet warm to touch. No erythema or swelling surrounding the left hip incision. No observable tenderness to deep palpation of the left hip. Neuro: AOx3, CN grossly intact Moves all extremities. No focal deficits. Labs: Recent Labs 08/25/22 0114 08/24/22 0153 08/23/22 1055 08/23/22 0230 08/22/22 0339 WBC 11.4* 13.8* 16.4* 16.7* 16.6* HGB 8.6* 8.7* 8.6* 8.7* 7.1* HCT 27.9* 28.1* 27.2* 27.6* 23.7* PLATELET 501* 504* Not Measured Not Measured 445* MCV 69.8* 69.4* 69.9* 69.3* 66.9* Recent Labs 08/25/22 0114 08/24/22 1421 08/24/22 0153 08/23/22 0230 08/22/22 0339 08/21/22 1000 08/21/22 0346 NA 138 -- 141 142 145 -- 145 CL 106 -- 106 107 111* -- 107 CO2 24 -- 27 27 27 -- 31 K 4.1 4.4 3.7 4.2 4.1 < > 3.7 MAGNESIUM 0.82 -- 0.90 0.80 0.86 -- 0.87 PHOS 2.3* -- 2.3* 2.8 2.4* -- 2.4* CALCIUM 8.6 -- 8.6 8.5 8.7 -- 8.7 BUN 15 -- 17 16 20* -- 22* CREATININE 0.38* -- 0.45* 0.53* 0.56* -- 0.60* < > = values in this interval not displayed. LFTs Recent Labs 08/20/22 1400 PROT 5.6* ALBUMIN 2.5* AST 39* ALT 20 ALKPHOS 213* BILITOT <0.2* BILIDIR 0.1 Coags No results for input(s): INR, PT, PTT, FIBRINOGEN, DDIMER in the last 168 hours. Invalid input(s): THROMBIN TIME Cardiac Enzymes Recent Labs 08/19/22 0120 CK 32 Endocrine Recent Labs 08/20/22 1400 08/15/22 0000 TSH 1.90 0.28 Recent Labs 08/25/22 1109 08/25/22 0952 08/25/22 0859 08/25/22 0732 08/25/22 0550 08/25/22 0323 08/25/22 0235 08/25/22 0100 08/24/22 2326 08/24/22 2216 08/24/22 2120 08/24/22 1941 POCGLU 185 162 137 202* 169 157 163 186 198 188 195 185 Microbiology: 08/24 Fungitell positive 08/24 BAL Fungal culture positive 08/21 BAL Lower Resp culture NGTD, no microorganisms on gram stain. 08/21 Fungal, AFB cultures NGTD 08/19 blood cx: NGTD 08/19 lower resp cx: normal upper respiratory wiley 08/19 BCx NGTD 08/18 legionella urinary antigen: neg 08/15 urine cx: insignificant growth 08/15 Covid 19 PCR: neg 08/15 lower resp cx: rare normal upper resp wiley 08/15 blood cx: NGTD 08/15 MRSA: neg 08/14 blood cx: NGTD TTE: 08/19: -Left ventricular systolic function is moderately reduced. The left ventricular ejection fraction is 32% by Dahl's biplane. The apical portions of the LV remain akinetic with preservation of the basal segments. There is no apical thrombus seen with echo enhancing agent. Imaging: CT Chest 08/20: 1. Multifocal lower lobe predominant consolidative opacities with additional upper lobe opacities consistent with multifocal pneumonia. Compared to the prior CT of 08/12/2022 the number and size of the opacities has decreased. Recommend follow-up imaging in 3-6 months to document complete resolution. 2. New small, sub-1 cm early cavitation of multiple opacities predominantly within the posterior left upper lobe and left lower lobe. 3. New curvilinear splenic lesions could represent infarct versus late arterial phase splenic arterial opacification. CT Left Hip 08/20: 1. Uncomplicated left femoral neck ORIF with unchanged postoperative alignment. ?? 2. Moderate skin thickening and subcutaneous stranding about the lateral left hip with lateral left thigh intramuscular edema and fascial thickening. These findings are nonspecific and may be seen in the routine postoperative setting. Underlying soft tissue infection with infectious or inflammatory myositis may also have this appearance. Correlation with physical examination, clinical symptoms, and laboratory findings is recommended. ?? 3. 2.3 x 1.6 x 1.8 cm focus of more coalescent fluid attenuation centered in the subcutaneous fat of the posterolateral thigh roughly at the level of the proximal femoral fixation screw heads. There is no rim-enhancing to suggest a mature, organized abscess at this time. However, this finding could represent phlegmon in appropriate clinical context, or it could represent a postsurgical collection, the contents of which may be sterile or infected. ?? 4. There is a rectal tube in place. However, there remains a large stool ball in the rectum with free fluid versus coalescent edema on both the anterior and posterior margins of the distended rectum. In appropriate clinical context, these findings could represent proctocolitis or stercoral colitis. Assessment & Plan: Ms. Irving is a 62 year old female with a medical history notable for insulin-dependent diabetes mellitus, bipolar disorder, alcohol use disorder in remission, iron deficiency anemia, and recent L femoral neck fracture s/p surgical fixation presenting in transfer with acute hypoxic respiratory failure, pneumonia, and newly identified heart failure. Patient was extubated 08/21 in the evening. She continues to improve with regard to mentation and cognition but slowly. Leukocytosis improving but fungitell and fungal cultures positive, we discussed with ID who said that given her improvement overall there is no need to treat at this time. Patient successfully passed stool burden seen on prior imaging. Will continue to plan for potential LHC whenmedically optimized but will obtain Coronary CTA when we acquire CT chest this week per ID recommendations. Neuro: # Bipolar Disorder - Depakote 190 mg oral liquid per Dobhoff - Holding home Seroquel - Plan to increase to full home regimen (250mg QPM / 1g Q3PM) by 08/24. 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 # Bilateral airspace opacities/multifocal pneumonia - Respiratory support with LFNC PRN; currently on RA - Antibiotics: zosyn, stopped per ID - Obtain CT Chest per ID - Follow infectious work-up - Fungitell and Fungal Cx positive, no change in management at this time per ID ?? Cardiac: # Distributive Shock # NSTEMI Type I vs Type II # HFrEF (EF 25%) # C/f Stress Cardiomyopathy - LHC this week - Obtain Coronary CTA when getting CT chest - ASA 81mg, Plavix 75mg. - Therapeutic heparin converted to subQ prophylactic today. - Ischemic workup when more stable - Mg >1, K >4 ?? Renal/Fluids/Electrolytes: # MARILIN, resolved. - Likely in setting of low perfusion state, interventions to improve her perfusion as above ?? GI: # GERD c/b Farrell's esophagus & esophagitis # Constipation # Rectal wall edema 2/2 stool ball - Bowel regimen including miralax, dulcolax PRN - Continue Milk of Magnesia PRN - Continue Senna PRN - Continue home pantoprazole 40 BID ?? Endocrine: # Insulin-dependent diabetes - Regular insulin gtt w/ tube feeding. ?? Hematology/oncology: # Mixed JERRICA and ACD - Oral iron supplementation started 08/21. - Ferritin, Iron, TIBC resulted; mixed picture - Transfuse for Hb <8 - S/p 1u pRBC 08/22 ?? Infectious disease: # Septic shock # Bilateral airspace opacities/multifocal pneumonia # L Hip Fluid Collection # Subcentimeter left posterior upper lobe cavitary lesions - Infectious work-up has not yielded any organisms - S/p BAL 08/21 without any growth to date. - IR, orthopedic surgery consulted for evaluation of L hip fluid collection. No intervention/drainable target. - Stopped zosyn as per ID (08/14- 08/23) - Fungal testing positive no change in management at this time per ID #Routine Diet: NPO diet (Give Meds) DVT prophylaxis: heparin sc GI Prophylaxis: home PPI Code Status: Attempt Cardiopulmonary Resuscitation - Inpatient Alternative Medical Decision Maker: zac Gallegos MD Internal Medicine, PGY-1 Cardiology [facility] #[id number] Associated attestation - Milagros Hernandez MD - 08/25/2022 2:01 PM EDT CARDIOLOGY ATTENDING NOTE Patient: Ishan Irving Date of Service: 08/25/2022 Date of Admission: 08/14/2022 Length of Stay Hospital Day 11 days Please see the below note by Dr. Gallegos for details. I have interviewed and examined the patient independently and I concur with the assessment and plan as documented, with exceptions/additions/emphases as noted below. The case was discussed on cardiology rounds and we reviewed the plan of care withthe team and patient. Steady but slow improvement. Thankfully did pass her constipated stool. Received trazodone last night; does not want her to receive again as he felt she was too sedated when he came in this morning. also concerned that we have not done the barium swallow study; we discussed that sheis not safe for a barium swallow at this point and that GAS STATION SUPERVISOR is evaluating her regularly. Will plan for CTA cors and chest tomorrow rather than cath- discussed with . Transition from insulin gtt to basal/bolus, appreciate assistance of DM team. Milagros Hernandez MD Cardiovascular Medicine Personal Pager [phone] 08/25/2022 1:51 PM * Afia Bergeron, GAS STATION SUPERVISOR - 08/24/2022 5:57 PM EDT Speech Therapy Note Patient Profile: Briefly, Ishan Irving is a 62 y.o. woman with a medical history notable for insulin-dependent diabetes mellitus, bipolar disorder, resolving medication induced Parkinson's, alcohol use disorder in remission, iron deficiency anemia, and recent L femoral neck fracture s/p surgical fixation ~ 2 weeks ago presenting in transfer on 08/14/2022 with acute hypoxic respiratory failure, pneumonia, and newly identified heart failure. She has been seen by orthopedics, neurology and ID and was extubated 08/21. ??She is stable on room air and mentation is gradually improving though she remains reserved and soft spoken. Antibiotics were discontinued per ID recommendations. Leukocytosis improving. Increasing??aggressive bowel regimen for findings of stool ball on CT. Plan is for [facility] medically optimized. GAS STATION SUPERVISOR service consulted 08/22/22 to assess oropharyngeal swallow post-extubation. 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 Interval History: -PVR 540- straight cath x1. -No other overnight events Subjective: I don't want to sit up that far! Objective: Pt seen for dysphagia management and demonstrated the following: Pain: denies Respiratory Status: Room air Current Diet: NPO diet (Give Meds) Feeding / Oral Care Status: Patient requires cues and / or assistance Cognitive-Linguistic Status: confused Command Following: Follows single step commands Requires cueing Requires increased time to complete Positioning: HOB at 45 degrees (pt adamantly refusing to sit up any higher) Oral / Laryngeal Mechanism Clinical Assessment: missing some upper posterior teeth, adequate lower;adequate lingual/labial ROM, dry oral mucosa/lips but cleaned with oral swabbing with good effect; vocal quality remains somewhat hypophonic/hoarse Bolus Presentation(s): ?? Ice chips ?? Thin liquid via spoon Oral Preparatory Phase: slow but organized oral prep, masticates ice chip, no anterior loss, adequate containment; no oral residue Pharyngeal Phase: slight delayed initiation of pharyngeal swallow, laryngeal elevation/drive mildlyreduced on external palpation during the swallow; immediate cough with sip thin liquid/water; reflexive cough after approx 50% ice chip trials, improved timeliness after few ice chips noted, however,pt fatigues easily Esophageal Phase: known baseline esophageal dysfunction Education: Pt verbally educated to GAS STATION SUPERVISOR role, results of this bedside reasesssment, and plan as outlined below. Pt verbalizes understanding and agreement with plan. Assessment: Pt was seen today for a follow-up GAS STATION SUPERVISOR visit/reassessment. Continues to demonstrate oropharyngeal dysphagia and overt signs of aspiration with trials at the bedside today. Suboptimal positioning likely contributing as pt refuses to sit upright > 30/40 degrees today, also easy to fatigue. For now will suggest ice chips in moderation with RN for oral comfort and swallow stimulation when she is awake/alert and agrees to sit more upright. GAS STATION SUPERVISOR will continue to follow with team. Pt will benefit from continued therapeutic interventions to achieve therapy goals. Diagnosis: strong clinical s/s pharyngeal and likely esophageal dysphagia given pt's hx, dysphonia,AMS ?? Recommendations: Diet: NPO * ok for few ice chips in moderation with RN supervision when awake/alert and sitting upright for comfort/swallow stimulation PO medications: IV or other alternative means only Aspiration precautions: Excellent oral care Patient is dependent for oral care and is a good candidate for the current oral care barge pilot program taking place on specific units at [facility]. Please use LE oral suction toothbrushes to perform oral care 2-4x daily. ?? Pt will benefit from continued GAS STATION SUPERVISOR services while hospitalized Speech Therapy Goals: Pt will tolerate least restrictive diet without evidence of dysphagia / aspiration. Pt / caregiver will be independent with aspiration precautions, diet modifications, and safe swallowing strategies. Pt will maintain hydration / nutrition with optimal safety and efficiency. Plan: Therapy Frequency (GAS STATION SUPERVISOR Eval): 2-3 times/wk Patient / family are in agreement with treatment plan. Total Minutes (Speech Language Pathology): 25 Thank you for this consult with this patient. Please feel free to page me with any questions or concerns. Afia Bergeron M.S., CCC-GAS STATION SUPERVISOR Pager: [phone] Speech-Language Pathology Inpatient Rehabilitation Medicine * Danielito Oswald MD - 08/24/2022 12:16 PM EDT CARDIAC CRITICAL CARE ATTENDING STAFF PROGRESS NOTE Patient seen and examined. Ishan Irving is a 62 y.o. female with: Active Hospital Problems Diagnosis ??? Bipolar disorder ??? T2DM (type 2 diabetes mellitus) Resolved Hospital Problems Diagnosis Date Resolved ??? Shock 08/22/2022 ASSESSMENT, MANAGEMENT, and DECISION MAKING: Neuro: Pain controlled, neuro intact. Continuing to reintroduce home depakote. Holding Seroquel fornow given prolonged emergence. PT/OT. CV: HDs off pressors. Continuing BB, statin. Consider further coronary evaluation with either coronary CT of cath. LVEF 32%. Resp: Oxygenation adequate on NC. Would benefit from ambulation. Will plan for chest CT for interval changes given multilobular pneumonia. Endo: Insulin gtt. GI: TFs, appreciate speech input. PPI. Renal: Monitor UOP, replete lytes as appropriate Heme: ASA, plavix, lovenox. Continuing precursors to erythropoiesis. ID: Afebrile. EXAM: Patient Vitals for the past 168 hrs: Weight 08/24/22 0500 69.3 kg (152 lb 12.5 oz) 08/23/22 0500 70.6 kg (155 lb 10.3 oz) 08/22/22 0400 72 kg (158 lb 11.7 oz) 08/21/22 0400 72.5 kg (159 lb 13.3 oz) 08/20/22 0233 72.3 kg (159 lb 6.3 oz) 08/19/22 0206 73.1 kg (161 lb 2.5 oz) 08/18/22 0400 69.7 kg (153 lb 10.6 oz) Temp: [36.1 ??C (97 ??F)-36.5 ??C (97.7 ??F)] Heart Rate: [73-100] Resp: [13-27] BP: (92-132)/(50-79) SpO2: [93 %-98 %] Heart Rate from SpO2: -- Physical Exam Awake, lethargic but speaking Mildly coarse bilaterally RRR, no m S/NT WWP Recent Results (from the past 24 hour(s)) POCT Glucose Result Value Ref Range POC Glucose 166 65 - 199 mg/dL POCT Glucose Result Value Ref Range POC Glucose 158 65 - 199 mg/dL POCT Glucose Result Value Ref Range POC Glucose 214 (H) 65 - 199 mg/dL POCT Glucose Result Value Ref Range POC Glucose 194 65 - 199 mg/dL POCT Glucose Result Value Ref Range POC Glucose 189 65 - 199 mg/dL POCT Glucose Result Value Ref Range POC Glucose 200 (H) 65 - 199 mg/dL POCT Glucose Result Value Ref Range POC Glucose 180 65 - 199 mg/dL POCT Glucose Result Value Ref Range POC Glucose 174 65 - 199 mg/dL POCT Glucose Result Value Ref Range POC Glucose 151 65 - 199 mg/dL Magnesium Result Value Ref Range Magnesium 0.90 0.69 - 1.07 mmol/L Phosphorus Result Value Ref Range Phosphorus 2.3 (L) 2.5 - 4.5 mg/dL Basic Metabolic Panel (non-fasting) Result Value Ref Range Glucose Lvl 155 65 - 199 mg/dL BUN 17 8 - 18 mg/dL Creatinine 0.45 (L) 0.70 - 1.20 mg/dL Sodium 141 135 - 145 mmol/L Potassium 3.7 3.5 - 5.0 mmol/L Chloride 106 98 - 107 mmol/L CO2 27 22 - 31 mmol/L Anion Gap 8 5 - 15 mmol/L Calcium 8.6 8.5 - 10.5 mg/dL Estimated GFR 109 >=60 mL/min/1.73 m?? Hemogram Result Value Ref Range WBC 13.8 (H) 4.0 - 9.5 x10(3)/mcL RBC 4.05 4.00 - 5.21 x10(6)/mcL Hemoglobin 8.7 (L) 11.7 - 15.5 g/dL Hematocrit 28.1 (L) 35.7 - 45.8 % MCV 69.4 (L) 82.6 - 94.4 fL MCH 21.5 (L) 27.1 - 32.0 pg MCHC 31.0 (L) 31.7 - 35.0 g/dL Platelets 504 (H) 145 - 357 x10(3)/mcL RDWSD 71.8 (H) 37.0 - 46.0 fL RDWCV 31.0 (H) 11.5 - 14.1 % MPV 9.7 7.6 - 12.9 fL nRBC % Auto 0.1 % nRBC Abs Auto 0.020 (H) 0.000 - 0.000 x10(3)/mcL Differential, Automated Result Value Ref Range Neutrophils % 77.0 % Neutr Abs (ANC) 10.61 (H) 1.70 - 6.10 x10(3)/mcL Lymphocytes % 11.1 % Lymphocytes Abs 1.5 0.9 - 3.2 x10(3)/mcL Monocytes % 8.2 % Monocyte Abs 1.1 (H) 0.3 - 0.9 x10(3)/mcL Eosinophils % 2.2 % Eosinophils Abs 0.3 0.0 - 0.4 x10(3)/mcL Basophils % 0.4 % Basophils Abs 0.1 0.0 - 0.1 x10(3)/mcL Immature Gran % 1.10 % Almaz Gran Abs 0.15 (H) 0.00 - 0.04 x10(3)/mcL Scan, Peripheral Blood Result Value Ref Range Plat Estimate Increased RBC Morphology Abnormal Microcytes 1-5 /HPF Hypochromia Slight Ovalocytes 1-5 /HPF Randolph Cells 1-5 /HPF Platelet Clumps Present POCT Glucose Result Value Ref Range POC Glucose 135 65 - 199 mg/dL POCT Glucose Result Value Ref Range POC Glucose 145 65 - 199 mg/dL POCT Glucose Result Value Ref Range POC Glucose 183 65 - 199 mg/dL POCT Glucose Result Value Ref Range POC Glucose 224 (H) 65 - 199 mg/dL POCT Glucose Result Value Ref Range POC Glucose 171 65 - 199 mg/dL POCT Glucose Result Value Ref Range POC Glucose 193 65 - 199 mg/dL POCT Glucose Result Value Ref Range POC Glucose 183 65 - 199 mg/dL POCT Glucose Result Value Ref Range POC Glucose 185 65 - 199 mg/dL IS PATIENT CRITICALLY ILL ? Is there a high potential of sudden, clinically significant, or life threatening deterioration? No Is there a need for direct personal assessment and management to treat/prevent multiple vital organfailure/deterioration? No * Gene Young, PT - 08/24/2022 11:15 AM EDT Physical Therapy evaluation 1 Patient profile: Ishan Irving is a 62 y.o. woman with a medical history notable for insulin-dependent diabetes mellitus, bipolar disorder, resolving medication induced Parkinson's, alcohol use disorder in remission, iron deficiency anemia, and recent L femoral neck fracture s/p surgical fixation ~ 2 weeks ago presenting in transfer with acute hypoxic respiratory failure, pneumonia, and newly identified heart failure. She has been seen by orthopedics, neurology and ID and was extubated 08/21.. She is stable on room air and mentation is gradually improving though she remains reserved andsoft spoken. Antibiotics were discontinued per ID recommendations. Leukocytosis improving. Increasing aggressive bowel regimen for findings of stool ball on CT. Plan is for C when medically optimized. Referred to PT for evaluation. Patient with the following active problems: Past Medical History: Diagnosis Date ??? Bipolar disorder 02/12/2022 Past Surgical History: Procedure Laterality Date ??? PRO COLONOSCOPY, BIOPSY N/A 03/20/2016 COLONOSCOPY FLEXIBLE, WITH BX performed by David Dejesus MD at [facility] ??? PRO COLONOSCOPY, DIAGNOSTIC N/A 03/01/2020 COLONOSCOPY, DIAGNOSTIC performed by David Dejesus MD at [facility] ??? PRO ENDOSCOPIC US EXAM, ESOPH N/A 03/31/2022 UPPER EUS- ENDOSCOPIC ULTRASOUND performed by David Dejesus MD at [facility] ??? PRO UPPER GI ENDOSCOPY, BIOPSY N/A 04/03/2014 UPPER GASTROINTESTINAL ENDOSCOPY,WITH BIOPSY SINGLE OR MULTIPLE performed by David Dejesus MDat [facility] ??? PRO UPPER GI ENDOSCOPY, BIOPSY N/A 03/20/2016 EGD WITH BIOPSY performed by David Dejesus MD at [facility] ??? PRO UPPER GI ENDOSCOPY, BIOPSY N/A 11/22/2018 EGD WITH BIOPSY (WRVU 2.49) performed by David Dejesus MD at [facility] ??? PRO UPPER GI ENDOSCOPY, BIOPSY N/A 03/01/2020 UPPER GASTROINTESTINAL ENDOSCOPY,WITH BIOPSY SINGLE OR MULTIPLE (WRVU 2.49) performed by David Dejesus MD at [facility] ??? PRO UPPER GI ENDOSCOPY, BIOPSY N/A 09/23/2021 EGD WITH BIOPSY (WRVU 2.49) performed by David Dejesus MD at [facility] ??? PRO UPPER GI ENDOSCOPY, BIOPSY N/A 03/31/2022 EGD WITH BIOPSY (WRVU 2.49) performed by David Dejesus MD at [facility] ??? PRO UPPER GI ENDOSCOPY, BIOPSY N/A 07/03/2022 EGD WITH BIOPSY (WRVU 2.49) performed by David Dejesus MD at [facility] ??? PRO UPPER GI ENDOSCOPY, DIAGNOSTIC N/A 04/03/2014 EGD, UPPER GI ENDOSCOPY performed by David Dejesus MD at [facility] ??? PRO UPPER GI ENDOSCOPY, DIAGNOSTIC N/A 03/01/2020 EGD, UPPER GI ENDOSCOPY performed by David Dejesus MD at [facility] Social History: Pt was not able to reliably answer questions about home set up. She did say that she was independent and walking without a walker, but when asked about mobility after her hip fracture, she did not answer. Precautions/Special Considerations: NPO due to dysphasia, NG tube in place, wbat left leg, bed alarm, PICC line Mobility and Positioning Recommendations: ?? Pt should utilize sling ceiling lift to get to cc. Subjective: ???I have to shit.?? Hospital (when asked where she is , but she could not tell me the name of the hospital) Five foot (when I asked her how tall she is.) I can't (when asked to move her head side to side.) Objective: Pt seen for evaluation today in [facility]. Upon arrival, pt lying in bed with head rotated right, not moving spontaneously. Pain: c/o pain in left hip with rolling and transfers to get sitting EOB. Vital Signs / Cardiopulmonary: On room air ? SpO2: 99% ? BP: 127/63 ? HR: 84 Mental Status: slow to respond, occasionally speaks spontaneously. Follows commands 50% of the time. Vision: nt, she was tracking during the session and opens eyes to voice Skin: healed incision left hip. Musculoskeletal: ROM: wfl, right shoulder slightly stiff compared to left. Strength: difficult to assess due to poor initiation / effort on pt's part. Grossly 2/5 throughout. Sensation: nt Bed Mobility: Roll side to side x 4 for clean up with max assist of 2 of RN and PT. Pt was able to reach for rail with each arm with max prompting. Supine to Sit: with max assist of 2. Sit to Supine: max assist of 2 using linens. Pt was not able to assist. Transfers: Sit to Stand: x 4 with max assist of 2 and fww. Min assist to guard knees. Poor LE strength and poor ability to hold onto the walker. Stand to Sit: with mod assist of 2. Bed to Chair: nt due to pt's continual stooling and need for clean up. Gait: N/a, pt not yet ready Balance: pt was able to sit at the EOB unsupported, but with close supervision. Assist for foot placement on the floor and seat deflate. Education/Exercise Instruction: Discussed with pt the importance of mobility and ex's. She is not able to perform ex's on her own yet due to weakness and poor initiation. Exercises performed: ankle pumps with assist, LAQ in sitting x 3 reps actively, SAQ with min assistin supine, sh ff with assist Assessment: Ishan Irving was seen today for physical therapy evaluation. Pt presents with severe generalized deconditioning, left hip pain and impaired cognitive status resulting in deficits in bed mobility, transfers, standing, gait and balance. She was able to sit unsupported and vital signs were stable. She should hopefully make functional gains with continued PT to reach goals. Will most likely benefit from rehab placement prior to home when ready for d/c from . Plan: 2-4 times/wk Patient/family understand and agree with plan as stated above. Discharge Recommendations: Based on current functional status- swing bed rehabilitation facility Consult Recommendations: Occupational therapy consult Equipment needs for home at d/c: to be determined Goals: To be achieved by 09/07/22: 1. Pt. will demonstrate understanding of appropriate exercises and perform them independently or with family. 2. Pt. will perform bed mobility with modified independence. 3. Pt. will perform sit to stand transfers with min A using a front wheeled walker. 4. Pt. will ambulate 10 feet with mod A using a a front wheeled walker. 5. Pt. will ascend/descend step/stairs sufficient for home using rail and assist of 1 Patient status, treatment, and mobility recommendations have been discussed with nursing. Thank you for this consult. GENE YOUNG, PT Pager: [phone] Physical Therapy Inpatient Rehabilitation Department Time IN / OUT: 1521-7450 Total Time: (P) 40 (([id number])) minutes, GNEE YOUNG, PT Pager: [phone] Physical Therapy Inpatient Rehabilitation Department 2016 PT Evaluation Code Rationale: ?? Diagnosis & Pertinent Co-Morbidities, personal factors, and present illness affecting Plan of Care: (see above); Additional personal factors or co- morbidities that impact plan: ?? Total # of Factors: 0 1-2 3+ x ?? Examination of body system impairments, functional limitations and behaviors, and/or participation restrictions. Addressing 1-2 elements Addressing 3 + elements x Addressing 4 + elements ?? Clinical presentation: See assessment above. Stable/Uncomplicated Evolving/Fluctuating Symptoms Unstable/Unpredictable x ?? Clinical decision making of moderate complexity based on pt's functional performance as outlinedin this evaluation. * Nancy Ernst, RD - 08/24/2022 8:46 AM EDT Nutrition Progress Note Ishan Irving is a 62 y.o.??female??with h/o bipolar, DM, EtOH, esophagitis, who presented to [facility] 3 days ago after being found unresponsive at home.?Patient found to have likely pneumonia +/- aspiration, newly reduced EF. Reason for Assessment: ICU Tube Feeding, Follow-up Nutrition Recommendations: Enteral Nutrition: Continue Peptamen AF with a goal rate of 45 ml per hour plus 2 scoop(s) of protein powder daily. This rate is calculated to compensate for unplanned time off feedings due to potential procedures, etc. At goal, this will provide: Peptamen AF Total Volume Per Day: 900 mL Scoops of Protein: 2 Calories per Day: 1130 Protein per Day: 80 g Free Water mL per Day: 831 % RDI: 72 % Continue MVI w/ minerals as EN meets <85% of RDI Monitor hydration status on above TFs as they are concentrated. Pt may need additional fluids depending on IVFs, med flushes, p.o. Intake, etc. Monitor weight to trend Liquid tylenol contains sugar alcohol(s) (sorbitol) that acts as a purgative. If stool output is excessive, consider switching to crushed tablet form. Monitor BM. Goal of one every 24-48hrs while on EN Monitor lytes. Replete as indicated Replete Phos <2.0 I was able to discuss plan with provider [facility] [id number]. Current Nutrition Regimen: Active Orders Diet NPO diet (Give Meds) Frequency: Effective Now Number of Occurrences: Until Specified All Active TF Orders: Tubefeeding Orders (From admission, onward) Start Dose/Rate Route Frequency Ordered Stop 08/17/22 1730 tube feeding diet 900 mL 45 mL/hr Per NG tube CONTINUOUS 08/17/22 1641 Average tube feeding provision over past 2 days; 1080mL vs daily goal volume of 900 formula (>100% of goal) Average protein powder provision over the past 2 days; 2 scoops vs daily goal of 2 scoops (100% of goal) Tolerance or barriers to meeting needs: tolerating so far Assessment: Lab Results Component Value Date NA 141 08/24/2022 K 3.7 08/24/2022 CL 106 08/24/2022 CO2 27 08/24/2022 BUN 17 08/24/2022 CREATININE 0.45 (L) 08/24/2022 ESTGFR 109 08/24/2022 MAGNESIUM 0.90 08/24/2022 CALCIUM 8.6 08/24/2022 PHOS 2.3 (L) 08/24/2022 AST 39 (H) 08/20/2022 ALT 20 08/20/2022 ALKPHOS 213 (H) 08/20/2022 BILITOT <0.2 (L) 08/20/2022 BILIDIR 0.1 08/20/2022 CRP 19.4 (H) 08/21/2022 HA1C 6.2 (H) 08/15/2022 25OHVITD 12 (L) 08/24/2022 IRON 25 (L) 08/21/2022 Lab Results Component Value Date POCGLU 168 08/24/2022 POCGLU 166 08/24/2022 POCGLU 185 08/24/2022 POCGLU 183 08/24/2022 POCGLU 193 08/24/2022 POCGLU 171 08/24/2022 POCGLU 224 (H) 08/24/2022 POCGLU 183 08/24/2022 POCGLU 145 08/24/2022 POCGLU 135 08/24/2022 POCGLU 151 08/24/2022 POCGLU 174 08/24/2022 Patient Lines/Drains/Airways Status Active Nutritional LDAs Name Placement date Placement time Site Days Naso/Oral Tube 08/17/22 1142 small bore weighted (Dobhoff) right nostril 08/17/22 1142 right nostril 7 Peripheral IV Line - Single Lumen 08/14/22 median vein (underside of arm), left 08/14/22 -- -- 10 PICC Line - Double Lumen 08/19/22 1655 basilic vein (medial side of arm), right 5 Fr 08/19/22 1655 -- 5 External Catheter 08/23/22 1100 08/23/22 1100 -- 1 Physical Findings Gastrointestinal: feeding tube Tubes: nasogastric tube Oxygen Therapy / Airway Device: None (Room air) Shift Pressure Injury Prevention Occiput: No Injury Thoracic Spine: No Injury Sacral: Redness, Blanchable Ischial - left: No Injury Ischial - right: No Injury Heel - left: No Injury Heel - right: No Injury Elbow - left: No Injury Elbow - right: No Injury Device Sites: O2 sat monitor, IV sites, mcrae, ECG Leads, BP Cuff Last Bowel Movement: 08/22/22 Intake/Output Summary (Last 24 hours) at 08/24/2022 1426 Last data filed at 08/24/2022 1400 Gross per 24 hour Intake 1771.24 ml Output 850 ml Net 921.24 ml Relevant medications: liquid tylenol, lovenox, ferrous sulfate, folic acid, lispro, MVI w/ minerals, protonix, senna, thamine, insulin gtt, KCl repletion Anthropometrics: Admit Weight: 69 kg Estimated body mass index is 29.84 kg/m?? as calculated from the following: Height as of 08/19/22: 152.4 cm (5'). Weight as of this encounter: 69.3 kg (152 lb 12.5 oz). [place] Body Weight (IBW) (kg): 45.45 Wt Readings from Last 10 Encounters: 08/24/22 69.3 kg (152 lb 12.5 oz) 08/19/22 73.1 kg (161 lb 2.5 oz) 07/03/22 69.9 kg (154 lb) 03/31/22 74.4 kg (164 lb) 02/12/22 78.7 kg (173 lb 9.6 oz) 09/23/21 78.5 kg (173 lb) 03/01/20 79.4 kg (175 lb) 11/22/18 80.3 kg (177 lb) 12/13/14 86.5 kg (190 lb 12.8 oz) 03/20/14 94 kg (207 lb 3.7 oz) Patient Vitals for the past 168 hrs: Weight 08/24/22 0500 69.3 kg (152 lb 12.5 oz) 08/23/22 0500 70.6 kg (155 lb 10.3 oz) 08/22/22 0400 72 kg (158 lb 11.7 oz) 08/21/22 0400 72.5 kg (159 lb 13.3 oz) 08/20/22 0233 72.3 kg (159 lb 6.3 oz) 08/19/22 0206 73.1 kg (161 lb 2.5 oz) 08/18/22 0400 69.7 kg (153 lb 10.6 oz) Weight Source: Bed Estimated / Assessed Needs: Fluid Requirements (mL/day): 2562 mL Kcal / K - 1136.25 Kcal (20 Kcal/Kg - 25 Kcal/Kg IBW) Estimated Protein Needs: 68.18 - 90.9 g (1.5 g/Kg - 2.0 g/Kg IBW) Nutrition intake and intake history / interview: 08/24: Phos continues to trend low but above 2.0. Pt reports no feelings of hunger at this time, will continue EN at current rate. Wt trending down, but appears consistent w/ wts from 06/2022. Pt does have some wt loss since 02/2022 but is not clinically significant. Will continue to monitor. 08/21: Phos continues to trend low but above 2.0 today (2.4). More responsive than in previous days,but still intubated. Attempting SBT today. Wt relatively stable at this time. Had 1st BM since admit 08/20, will continue to monitor BM and consistency. If stool remain liquid should dc liquid tylenolas it can cause loose stools. 08/18: Phos <2.0 since 08/18 w/ 60mmol of repletion since then, phos 1.4 this AM. EN advanced to goal this AM w/o signs of intolerance. Wt up 4kg since admission and intermittently receiving diuretics, -0.5L since admission 08/17: TF recs as above. Nutrition Focused Physical Exam: Not performed Malnutrition Diagnosis: Not identified (Andrea, NOLAN J Parenteral Enteral Nutr. 2011; 36(3): 273-83) Nutrition to continue to follow up while inpatient Nancy Ernst RD Pager #:[phone] * Moustapha Gallegos MD - 08/24/2022 6:09 AM EDT Images from the original note were not included. Cardiology ICU Progress Note ID: Ishan Irving is a 62 year old female with a medical history notable for recent L femoral neck fracture, bipolar disorder, resolving medication- induced Parkinsonism, insulin-dependent diabetes mellitus, hx of alcohol use disorder (reported to be in remission for 1.5 years) c/b chronic pancreatitis, iron deficiency anemia, GERD c/b esophagitis & Farrell's esophagus presenting in transfer from [facility], suspected to be in cardiogenic shock and found to be in mixed shock with concern for stress cardiomyopathy. 24 Hour Events/Subjective: Overnight: -PVR 540- straight cath x1. -No other overnight events This AM: - Patient has no complaints. Reports feeling okay, responding to questions Vasoactive & Sedating Medications: Infusions: Continuous Infusions: ??? tube feeding diet 45 mL/hr at 08/24/22 1000 ??? insulin regular human 2.25 Units/hr (08/24/22 1027) Objective: Vitals Last value Range last 24 hrs Temperature Temp: 36.3 ??C (97.3 ??F) Temp: [36.1 ??C (97 ??F)-36.5 ??C (97.7 ??F)] Heart Rate Heart Rate: 84 Heart Rate: [73-100] Blood Pressure BP: 127/63 BP: (92-132)/(50-79) Art Line BP BP (Arterial Line): 124/70 BP (Arterial Line): -- MAP (NBP): [62 mmHg-86 mmHg] Respiratory Rate Resp: 22 Resp: [13-27] SpO2 SpO2: 98 % SpO2: [93 %-98 %] Oxygen Delivery Oxygen Therapy O2 Device: None (Room air) O2 Flow Rate (L/min): 3 L/min FiO2 (%): 21 % Reason for Oxygen: Titration down from previous higher respiratory or O2 need Intake/Output Summary (Last 24 hours) at 08/24/2022 1037 Last data filed at 08/24/2022 1000 Gross per 24 hour Intake 1398.54 ml Output 865 ml Net 533.54 ml Patient Vitals for the past 168 hrs: Weight 08/24/22 0500 69.3 kg (152 lb 12.5 oz) 08/23/22 0500 70.6 kg (155 lb 10.3 oz) 08/22/22 0400 72 kg (158 lb 11.7 oz) 08/21/22 0400 72.5 kg (159 lb 13.3 oz) 08/20/22 0233 72.3 kg (159 lb 6.3 oz) 08/19/22 0206 73.1 kg (161 lb 2.5 oz) 08/18/22 0400 69.7 kg (153 lb 10.6 oz) Admit wt: 69 kg Physical Exam: Gen: Resting comfortably in NAD. Patient appearing muted/very reserved overall. Able to move all extremities but lies very still CV: RRR, no murmurs or gallops noted. Resp: No increased work of breathing. Coarse breath sounds. Abd: Normoactive bowel sounds in all 4 quadrants. Abdomen soft, non-tender, and non-distended. Ext: 2+ distal pulses, no pedal edema. Feet warm to touch. No erythema or swelling surrounding the left hip incision. No observable tenderness to deep palpation of the left hip. Neuro: Alert and oriented x 2 (year slightly off). Moves all extremities. No focal deficits. Labs: Recent Labs 08/24/22 0153 08/23/22 1055 08/23/22 0230 08/22/22 0339 08/21/22 0346 WBC 13.8* 16.4* 16.7* 16.6* 20.9* HGB 8.7* 8.6* 8.7* 7.1* 7.4* HCT 28.1* 27.2* 27.6* 23.7* 24.2* PLATELET 504* Not Measured Not Measured 445* 381* MCV 69.4* 69.9* 69.3* 66.9* 65.8* Recent Labs 08/24/22 0153 08/23/22 0230 08/22/22 0339 08/21/22 1545 08/21/22 1000 08/21/22 0346 08/20/22 0030 NA 141 142 145 -- -- 145 144 CL 106 107 111* -- -- 107 107 CO2 27 27 27 -- -- 31 28 K 3.7 4.2 4.1 3.9 4.4 3.7 4.1 MAGNESIUM 0.90 0.80 0.86 -- -- 0.87 0.94 PHOS 2.3* 2.8 2.4* -- -- 2.4* 1.7* CALCIUM 8.6 8.5 8.7 -- -- 8.7 8.5 BUN 17 16 20* -- -- 22* 21* CREATININE 0.45* 0.53* 0.56* -- -- 0.60* 0.55* LFTs Recent Labs 08/20/22 1400 PROT 5.6* ALBUMIN 2.5* AST 39* ALT 20 ALKPHOS 213* BILITOT <0.2* BILIDIR 0.1 Coags No results for input(s): INR, PT, PTT, FIBRINOGEN, DDIMER in the last 168 hours. Invalid input(s): THROMBIN TIME Cardiac Enzymes Recent Labs 08/19/22 0120 CK 32 Endocrine Recent Labs 08/20/22 1400 08/15/22 0000 TSH 1.90 0.28 Recent Labs 08/24/22 1027 08/24/22 0912 08/24/22 0800 08/24/22 0616 08/24/22 0449 08/24/22 0408 08/24/22 0151 08/24/22 0001 08/23/22 2303 08/23/22 2110 08/23/22 1901 08/23/22 1809 POCGLU 193 171 224* 183 145 135 151 174 180 200* 189 194 Microbiology: 08/21 BAL Lower Resp culture NGTD, no microorganisms on gram stain. 08/21 Fungal, AFB cultures NGTD 08/19 blood cx: NGTD 08/19 lower resp cx: normal upper respiratory wiley 08/19 BCx NGTD 08/18 legionella urinary antigen: neg 08/15 urine cx: insignificant growth 08/15 Covid 19 PCR: neg 08/15 lower resp cx: rare normal upper resp wiley 08/15 blood cx: NGTD 08/15 MRSA: neg 08/14 blood cx: NGTD TTE: 08/19: -Left ventricular systolic function is moderately reduced. The left ventricular ejection fraction is 32% by Dahl's biplane. The apical portions of the LV remain akinetic with preservation of the basal segments. There is no apical thrombus seen with echo enhancing agent. Imaging: CT Chest 08/20: 1. Multifocal lower lobe predominant consolidative opacities with additional upper lobe opacities consistent with multifocal pneumonia. Compared to the prior CT of 08/12/2022 the number and size of the opacities has decreased. Recommend follow-up imaging in 3-6 months to document complete resolution. 2. New small, sub-1 cm early cavitation of multiple opacities predominantly within the posterior left upper lobe and left lower lobe. 3. New curvilinear splenic lesions could represent infarct versus late arterial phase splenic arterial opacification. CT Left Hip 08/20: 1. Uncomplicated left femoral neck ORIF with unchanged postoperative alignment. ?? 2. Moderate skin thickening and subcutaneous stranding about the lateral left hip with lateral left thigh intramuscular edema and fascial thickening. These findings are nonspecific and may be seen in the routine postoperative setting. Underlying soft tissue infection with infectious or inflammatory myositis may also have this appearance. Correlation with physical examination, clinical symptoms, and laboratory findings is recommended. ?? 3. 2.3 x 1.6 x 1.8 cm focus of more coalescent fluid attenuation centered in the subcutaneous fat of the posterolateral thigh roughly at the level of the proximal femoral fixation screw heads. There is no rim-enhancing to suggest a mature, organized abscess at this time. However, this finding could represent phlegmon in appropriate clinical context, or it could represent a postsurgical collection, the contents of which may be sterile or infected. ?? 4. There is a rectal tube in place. However, there remains a large stool ball in the rectum with free fluid versus coalescent edema on both the anterior and posterior margins of the distended rectum. In appropriate clinical context, these findings could represent proctocolitis or stercoral colitis. Assessment & Plan: Ms. Irving is a 62 year old female with a medical history notable for insulin-dependent diabetes mellitus, bipolar disorder, alcohol use disorder in remission, iron deficiency anemia, and recent L femoral neck fracture s/p surgical fixation presenting in transfer with acute hypoxic respiratory failure, pneumonia, and newly identified heart failure. Patient was extubated 08/21 in the evening. She is stable on room air and mentation is gradually improving though she remains reserved and soft spoken. Antibiotics were discontinued per ID recommendations. Leukocytosis improving. Increasing aggressive bowel regimen for findings of stool ball on CT. Will continue to plan for LHC when medically optimized. Neuro: # Bipolar Disorder - Depakote 190 mg oral liquid per Dobhoff - Holding home Seroquel - Plan to increase to full home regimen (250mg QPM / 1g Q3PM) by 08/24. - 72 hours following first dose, check VPA level (08/24) - [employer]PER[employer]OR to evaluate Pulmonary: # Acute hypoxic respiratory failure, resolved. # Bilateral airspace opacities/multifocal pneumonia - Respiratory support with LFNC PRN; currently on RA - Antibiotics: zosyn, stopped per ID - Obtain CT Chest per ID - Follow infectious work-up - Galactomannan, fungitell pending. ?? Cardiac: # Distributive Shock # NSTEMI Type I vs Type II # HFrEF (EF 25%) # C/f Stress Cardiomyopathy - LHC this week - Obtain Coronary CTA when getting CT chest - ASA 81mg, Plavix 75mg. - Therapeutic heparin converted to subQ prophylactic today. - Ischemic workup when more stable - Mg >1, K >4 ?? Renal/Fluids/Electrolytes: # MARILIN, resolved. - Likely in setting of low perfusion state, interventions to improve her perfusion as above ?? GI: # GERD c/b Farrell's esophagus & esophagitis # Constipation # Rectal wall edema 2/2 stool ball - Bowel regimen including miralax, dulcolax PRN - Start Milk of Magnesia - Start Senna - Continue home pantoprazole 40 BID ?? Endocrine: # Insulin-dependent diabetes - Regular insulin gtt w/ tube feeding. ?? Hematology/oncology: # Mixed JERRICA and ACD - Oral iron supplementation started 08/21. - Ferritin, Iron, TIBC resulted; mixed picture - Transfuse for Hb <8 - S/p 1u pRBC 08/22 ?? Infectious disease: # Septic shock # Bilateral airspace opacities/multifocal pneumonia # L Hip Fluid Collection # Subcentimeter left posterior upper lobe cavitary lesions - Infectious work-up has not yielded any organisms - S/p BAL 08/21 without any growth to date. - IR, orthopedic surgery consulted for evaluation of L hip fluid collection. No intervention/drainable target. - Stopped zosyn as per ID (08/14- 08/23) #Routine Diet: NPO diet (Give Meds) DVT prophylaxis: heparin sc GI Prophylaxis: home PPI Code Status: Attempt Cardiopulmonary Resuscitation - Inpatient Alternative Medical Decision Maker: zac Gallegos MD Internal Medicine, PGY-1 Cardiology [facility] #[id number] Associated attestation - Milagros Hernandez MD - 08/24/2022 2:35 PM EDT CARDIOLOGY ATTENDING NOTE Patient: Ishan Irving Date of Service: 08/24/2022 Date of Admission: 08/14/2022 Length of Stay Hospital Day 10 days Please see the below note by Dr. Gallegos for details. I have interviewed and examined the patient independently and I concur with the assessment and plan as documented, with exceptions/additions/emphases as noted below. The case was discussed on cardiology rounds and we reviewed the plan of care withthe team and patient. Obvious improvement in mental status today. She is answering questions consistently, and with less delay. She is moving her upper extremities independently and purposefully and moves her lower extremities to command. She has no specific symptomatic complaints at this time. Mcrae removed yesterday, h ad retention and we straight cath'd her overnight. Will resist replacing and continue scheduled bladder scans with CIC for now. Will ask [employer] SUPERVISOR to reassess and consult PT/OT for mobilization today. If she continues to progress, can move out of the ICU. Risk of aspiration remains of significant concern. Per ID recs, abx stopped and we will reassess her lungs with CT later this week. In order to be judicious, and to limit her risk of aspiration in the process of assessing her cardiomyopathy, we willplan to perform a CTA coronary arteries for coronary assessment and to take another look at the lungs. Attending Attestation and Certification Please see Moustapha Gallegos MD's note for details of the patient history of presentation and data. I have discussed, reviewed and agree with the documented History, Physical findings, Assessment and Plan of care. I have examined the patient myself and personally reviewed all studies. In addition, I certify thatI am a [facility] credentialed attending provider with admitting privileges and that the patient meets or has met medical necessity to require an inpatient IPI level of care meeting a minimum of two midnights or is on the [facility] inpatient only procedure list (status C) due to: decompensated congestive heart failure requiring IV medication and fluid monitoring and acute respiratory compromise and/or hypoxiarequiring assessment every 4 hours and the ability to respond immediately to the patient's needs Milagros Hernandez MD Cardiovascular Medicine Personal Pager [phone] 08/24/2022 2:26 PM * Aileen Mayorga MD - 08/23/2022 1:21 PM EDT CRITICAL CARE ATTENDING PROGRESS NOTE ASSESSMENT, MANAGEMENT, and DECISION MAKING: NEURO: Continue home medications for depression. RESP: Stable. CV: Continues DAPT, metoprolol, statin. Consider ischemia evaluation when stabilizes further. ID: Appreciate ID, ortho, IR input. Following recommendations. BAL data negative to date, results still pending. Continue antibiotic coverage. GI: Appreciate speech input. Continues on enteral nutrition. HEME: Hemoglobin stable. Also on oral iron. Physical therapy post hip surgery needed. Patient seen and examined. Ishan Irving is a 62 y.o. female has issues that include: Active Hospital Problems Diagnosis ??? Bipolar disorder ??? T2DM (type 2 diabetes mellitus) Resolved Hospital Problems Diagnosis Date Resolved ??? Shock 08/22/2022 Active Non-Hospital Problems Diagnosis ??? Neuroleptic-induced parkinsonism ??? BMI 37.0-37.9, adult ??? GERD (gastroesophageal reflux disease) ??? Farrell's esophagus EXAM: Temp: [36.7 ??C (98.1 ??F)-37.7 ??C (99.9 ??F)] Heart Rate: [63-89] Resp: [15-27] BP: (94-134)/(46-79) SpO2: [90 %-100 %] Heart Rate from SpO2: -- Physical Exam Constitutional: General: She is not in acute distress. Appearance: She is not ill-appearing. Cardiovascular: Rate and Rhythm: Normal rate. Pulmonary: Effort: Pulmonary effort is normal. Breath sounds: Normal breath sounds. Body mass index is 30.4 kg/m??. IS PATIENT CRITICALLY ILL ? Is there a high potential of sudden, clinically significant, or life threatening deterioration? No * Parris Leyva MD - 08/23/2022 12:22 PM EDT Infectious Disease Follow-Up Antimicrobials: Piperacillin-tazobactam Events: - Extubated on 08/21/22, now stable on RA - IR attempt at left hip aspiration was unsuccessful - Failed speech eval Subjective: I saw Ishan today with partner at bedside. She nodded no when asked if she had any complaints. Nurse and partner at bedside noted good clinical progress since extubation. Physical Exam: BP 116/57 Pulse 83 Temp 36.3 ??C (97.3 ??F) Resp 15 Ht 152.4 cm (5') Wt 70.6 kg (155 lb 10.3 oz) SpO2 96% BMI 30.40 kg/m?? General: chronically ill-appearing female in no acute distress, appears fatigued CV: regular rate and rhythm, no obvious murmurs Resp: mildly tachypneic without use of accessory muscles, coarse breath sounds bilaterally Abd: soft, non-distended, non-tender on palpation Ext: warm to touch, left hip incision C/D/I without local signs or infection or tenderness noted onpalpation Skin: no visible rashes Pertinent labs, microbiology, imaging and procedures: Reviewed Impression and Recommendations: Happily, Ishan is successfully extubated with now good O2 saturations on RA. There continues to be issues with secretion management, and she has, unsurprisingly, failed her speech evaluation. She has been afebrile for about 48h, and her leukocytosis is steadily improving. Extensive infectious workup including BAL studies is negative. The cause for her acute decompensation remains unclear, though we postulated that aspiration likelyhad some contribution given respiratory failure in the setting of altered mentation, impressive chest CT findings with multifocal opacities (some of which were cavitary), known risk from Farrell's esophagus with persistent esophageal stricture (noted on EGD 07/03/22), and reported opiate use for pain control of recent hip surgery. We were initially tempted to relate her hip surgery to recent events due to temporal association, however it seems less likely now based on the benign appearance of her hip incision without any local signs of infection and limited fluid available for sampling on IR ev aluation. We therefore suggest stopping antibiotics today as she has completed a sufficient course for possible aspiration pneumonia. She will need repeat CT chest at some point to ensure resolution of her radiographic abnormalities. We will sign off. Please call with questions. Discussed with attending, Dr. Gordon Dos Santos, DO ID Fellow Red Team Pager: [phone] ID ATTENDING I agree with assessment and recommendations above. I reviewed the data set and guided decision-making but did not re-examine the patient today. Parris Leyva MD Page [phone] * Neva Tomlin MD - 08/23/2022 7:09 AM EDT Images from the original note were not included. Cardiology ICU Progress Note ID: Ishan Irving is a 62 year old female with a medical history notable for recent L femoral neck fracture, bipolar disorder, resolving medication- induced Parkinsonism, insulin-dependent diabetes mellitus, hx of alcohol use disorder (reported to be in remission for 1.5 years) c/b chronic pancreatitis, iron deficiency anemia, GERD c/b esophagitis & Farrell's esophagus presenting in transfer from [facility], suspected to be in cardiogenic shock and found to be in mixed shock with concern for stress cardiomyopathy. 24 Hour Events/Subjective: Overnight: - 19 beat run of NSVT. Received 2g IV mg. This AM: - Patient has no complaints. She appears fatigued. Voice is soft but she is responding appropriately to questions. Denies any pain or dyspnea. Vasoactive & Sedating Medications: Infusions: Continuous Infusions: ??? tube feeding diet 45 mL/hr at 08/23/22 1200 ??? insulin regular human 1.5 Units/hr (08/23/22 1200) Objective: Vitals Last value Range last 24 hrs Temperature Temp: 37.1 ??C (98.8 ??F) Temp: [36.7 ??C (98.1 ??F)-37.7 ??C (99.9 ??F)] Heart Rate Heart Rate: 82 Heart Rate: [63-89] Blood Pressure BP: 114/57 BP: (94-134)/(46-79) Art Line BP BP (Arterial Line): 124/70 BP (Arterial Line): -- MAP (NBP): [63 mmHg-90 mmHg] Respiratory Rate Resp: 20 Resp: [15-27] SpO2 SpO2: 96 % SpO2: [90 %-100 %] Oxygen Delivery Oxygen Therapy O2 Device: None (Room air) O2 Flow Rate (L/min): 3 L/min FiO2 (%): 21 % Reason for Oxygen: Titration down from previous higher respiratory or O2 need Intake/Output Summary (Last 24 hours) at 08/23/2022 1314 Last data filed at 08/23/2022 1200 Gross per 24 hour Intake 2060.78 ml Output 2190 ml Net -129.22 ml Patient Vitals for the past 168 hrs: Weight 08/23/22 0500 70.6 kg (155 lb 10.3 oz) 08/22/22 0400 72 kg (158 lb 11.7 oz) 08/21/22 0400 72.5 kg (159 lb 13.3 oz) 08/20/22 0233 72.3 kg (159 lb 6.3 oz) 08/19/22 0206 73.1 kg (161 lb 2.5 oz) 08/18/22 0400 69.7 kg (153 lb 10.6 oz) 08/17/22 0500 71.9 kg (158 lb 8 oz) Admit wt: 69 kg Physical Exam: Gen: Resting comfortably in NAD. CV: RRR, no murmurs or gallops noted. Resp: No increased work of breathing. Coarse breath sounds. Abd: Normoactive bowel sounds in all 4 quadrants. Abdomen soft, non-tender, and non-distended. Ext: 2+ distal pulses, no pedal edema. Feet warm to touch. No erythema or swelling surrounding the left hip incision. No observable tenderness to deep palpation of the left hip. Neuro: Alert and oriented x 2 (year slightly off). Moves all extremities. No focal deficits. Labs: Recent Labs 08/23/22 1055 08/23/22 0230 08/22/22 0339 08/21/22 0346 08/20/22 0030 WBC 16.4* 16.7* 16.6* 20.9* 28.0* HGB 8.6* 8.7* 7.1* 7.4* 8.2* HCT 27.2* 27.6* 23.7* 24.2* 26.4* PLATELET Not Measured Not Measured 445* 381* 351 MCV 69.9* 69.3* 66.9* 65.8* 64.7* Recent Labs 08/23/22 0230 08/22/22 0339 08/21/22 1545 08/21/22 1000 08/21/22 0346 08/20/22 0030 08/19/22 1345 08/19/22 0120 NA 142 145 -- -- 145 144 145 142 CL 107 111* -- -- 107 107 106 108* CO2 27 27 -- -- 31 28 29 25 K 4.2 4.1 3.9 4.4 3.7 4.1 4.1 3.8 MAGNESIUM 0.80 0.86 -- -- 0.87 0.94 -- 0.83 PHOS 2.8 2.4* -- -- 2.4* 1.7* 2.9 1.4* CALCIUM 8.5 8.7 -- -- 8.7 8.5 8.6 8.4* BUN 16 20* -- -- 22* 21* 20* 18 CREATININE 0.53* 0.56* -- -- 0.60* 0.55* 0.59* 0.50* LFTs Recent Labs 08/20/22 1400 PROT 5.6* ALBUMIN 2.5* AST 39* ALT 20 ALKPHOS 213* BILITOT <0.2* BILIDIR 0.1 Coags No results for input(s): INR, PT, PTT, FIBRINOGEN, DDIMER in the last 168 hours. Invalid input(s): THROMBIN TIME Cardiac Enzymes Recent Labs 08/19/22 0120 CK 32 Endocrine Recent Labs 08/20/22 1400 08/15/22 0000 TSH 1.90 0.28 Recent Labs 08/23/22 1206 08/23/22 1109 08/23/22 0801 08/23/22 0422 08/23/22 0232 08/23/22 0111 08/23/22 0028 08/22/22 2215 08/22/22 2111 08/22/22 1847 08/22/22 1814 08/22/22 1737 POCGLU 171 153 210* 173 181 137 136 194 162 181 193 202* Microbiology: 08/21 BAL Lower Resp culture NGTD, no microorganisms on gram stain. 08/21 Fungal, AFB cultures NGTD 08/19 blood cx: NGTD 08/19 lower resp cx: normal upper respiratory wiley 08/19 BCx NGTD 08/18 legionella urinary antigen: neg 08/15 urine cx: insignificant growth 08/15 Covid 19 PCR: neg 08/15 lower resp cx: rare normal upper resp wiley 08/15 blood cx: NGTD 08/15 MRSA: neg 08/14 blood cx: NGTD TTE: 08/19: -Left ventricular systolic function is moderately reduced. The left ventricular ejection fraction is 32% by Dahl's biplane. The apical portions of the LV remain akinetic with preservation of the basal segments. There is no apical thrombus seen with echo enhancing agent. Imaging: CT Chest 08/20: 1. Multifocal lower lobe predominant consolidative opacities with additional upper lobe opacities consistent with multifocal pneumonia. Compared to the prior CT of 08/12/2022 the number and size of the opacities has decreased. Recommend follow-up imaging in 3-6 months to document complete resolution. 2. New small, sub-1 cm early cavitation of multiple opacities predominantly within the posterior left upper lobe and left lower lobe. 3. New curvilinear splenic lesions could represent infarct versus late arterial phase splenic arterial opacification. CT Left Hip 08/20: 1. Uncomplicated left femoral neck ORIF with unchanged postoperative alignment. ?? 2. Moderate skin thickening and subcutaneous stranding about the lateral left hip with lateral left thigh intramuscular edema and fascial thickening. These findings are nonspecific and may be seen in the routine postoperative setting. Underlying soft tissue infection with infectious or inflammatory myositis may also have this appearance. Correlation with physical examination, clinical symptoms, and laboratory findings is recommended. ?? 3. 2.3 x 1.6 x 1.8 cm focus of more coalescent fluid attenuation centered in the subcutaneous fat of the posterolateral thigh roughly at the level of the proximal femoral fixation screw heads. There is no rim-enhancing to suggest a mature, organized abscess at this time. However, this finding could represent phlegmon in appropriate clinical context, or it could represent a postsurgical collection, the contents of which may be sterile or infected. ?? 4. There is a rectal tube in place. However, there remains a large stool ball in the rectum with free fluid versus coalescent edema on both the anterior and posterior margins of the distended rectum. In appropriate clinical context, these findings could represent proctocolitis or stercoral colitis. Assessment & Plan: Ms. Irving is a 62 year old female with a medical history notable for insulin-dependent diabetes mellitus, bipolar disorder, alcohol use disorder in remission, iron deficiency anemia, and recent L femoral neck fracture s/p surgical fixation presenting in transfer with acute hypoxic respiratory failure, pneumonia, and newly identified heart failure. Patient was extubated 08/21 in the evening. She is stable on room air and mentation is gradually improving. We are continuing antibiotics to cover for infection. Ortho was not concerned for hip infection and per IR, there was not a good target for drainage. Unfortunately bronchoscopy did not isolateany organisms either, however, leukocytosis and fevers do seem to be improving regardless. Continuing with aggressive bowel regimen for findings of stool ball on CT. Will continue to plan for LHC when medically optimized. Neuro: # Bipolar Disorder - Depakote 190 mg oral liquid per Dobhoff - Plan to increase to full home regimen (250mg QPM / 1g Q3PM) by 08/24. - 72 hours following first dose, check VPA level (08/24) Pulmonary: # Acute hypoxic respiratory failure, resolved. # Bilateral airspace opacities/multifocal pneumonia - Respiratory support with LFNC PRN; currently on RA - Antibiotics: zosyn, continuing. - Follow infectious work-up - Galactomannan, fungitell pending. ?? Cardiac: # Distributive Shock # NSTEMI Type I vs Type II # HFrEF (EF 25%) # C/f Stress Cardiomyopathy - ASA 81mg, Plavix 75mg. - Therapeutic heparin converted to subQ prophylactic today. - Ischemic workup when more stable - Mg >1, K >4 ?? Renal/Fluids/Electrolytes: # MARILIN, resolved. - Likely in setting of low perfusion state, interventions to improve her perfusion as above ?? GI: # GERD c/b Farrell's esophagus & esophagitis # Constipation # Rectal wall edema 2/2 stool ball - Bowel regimen including miralax, dulcolax PRN - Continue home pantoprazole 40 BID ?? Endocrine: # Insulin-dependent diabetes - Regular insulin gtt w/ tube feeding. ?? Hematology/oncology: # Mixed JERRICA and ACD - Oral iron supplementation started 08/21. - Ferritin, Iron, TIBC resulted; mixed picture - Transfuse for Hb <8 - S/p 1u pRBC 08/22 ?? Infectious disease: # Septic shock # Bilateral airspace opacities/multifocal pneumonia # L Hip Fluid Collection # Subcentimeter left posterior upper lobe cavitary lesions - Infectious work-up has not yielded any organisms - S/p BAL 08/21 without any growth to date. - IR, orthopedic surgery consulted for evaluation of L hip fluid collection. No intervention/drainable target. - C/w zosyn as per ID (08/14- ) #Routine Diet: NPO diet (Give Meds) DVT prophylaxis: heparin sc GI Prophylaxis: home PPI Code Status: Attempt Cardiopulmonary Resuscitation - Inpatient Alternative Medical Decision Maker: zac Tomlin MD Internal Medicine, PGY-2 Cardiology [facility] #[id number] Associated attestation - Milagros Hernandez MD - 08/23/2022 8:46 PM EDT CARDIOLOGY ATTENDING NOTE Patient: Ishan Irving Date of Service: 08/23/2022 Date of Admission: 08/14/2022 Length of Stay Hospital Day 9 days Please see the below note by Dr. Tomlin for details. I have interviewed and examined the patient independently and I concur with the assessment and plan as documented, with exceptions/additions/emphases as noted below. The case was discussed on cardiology rounds and we reviewed the plan of care withthe team and patient. Continued slow improvement in mental status. More interactive by report from although she continues to be minimally interactive with the medical team. Hemodynamics and respiratory status remain stable. 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 We will remove her Mcrae today. Attending Attestation and Certification Please see Neva Tomlin MD's note for details of the patient history of presentation and data. I have discussed, reviewed and agree with the documented History, Physical findings, Assessment and Plan of care. I have examined the patient myself and personally reviewed all studies. In addition, I certify thatI am a [facility] credentialed attending provider with admitting privileges and that the patient meets or has met medical necessity to require an inpatient IPI level of care meeting a minimum of two midnights or is on the [facility] inpatient only procedure list (status C) due to: acute myocardial infarction requiring titration of IV medication and fluid monitoring and acute encephalopathy, severe dysphagia. Milagros Hernandez MD Cardiovascular Medicine Personal Pager [phone] 08/23/2022 8:44 PM * Briana Bryant, GAS STATION SUPERVISOR - 08/22/2022 12:30 PM EDT Speech Therapy Bedside Swallow Evaluation Patient Profile: Ishan Irving is a 62 y.o. female admitted on 08/14/2022 From today's Cardiology Note, Ishan Irving is a 62 year old female with a medical history notable for??recent L femoral neck fracture,??bipolar disorder, resolving medication-induced Parkinsonism, insulin-dependent diabetes mellitus,??hx of alcohol use disorder (reported to be in remission for 1.5 years) c/b chronic pancreatitis, iron deficiency anemia,??GERD??c/b??esophagitis &??Farrell's esophagus??presenting in transfer from [facility], suspected to be in cardiogenic shock and found to be in mixed shock with concern for stress cardiomyopathy. Intubated after being found unresponsive at home. Patient found to have likely pneumonia +/- aspiration, newly reduced EF. 24 Hour Events/Subjective: Overnight: - Extubated, tolerating very well. No acute events overnight. Prior Level of Swallow Function: Has a hx of severe GERD Last EGD 07/03/22 noted, Impression: ??- Persistent esophageal stricture ?from 25-30 cm with C8M8 Farrell's ?esophagus and some ulceration - ?likely inflammatory which was ?biopsied Has had many EGD's and Colonoscopy Procedures prior tothis for ongoing GI concerns. Subjective: RN notes that he tried some ice chips this AM and that did not go well, he reports this also occurred yesterday. He asks me to tread lightly w/ her. RN notes her severe hx of GERD andstates he is afraid to put HOB down for fear of reflux / emesis. RN feels pt needs BA swallow, however, given severity of her current s/s; I do not believe she could safely or actively participate on one at this time. Objective: Pt seen for evaluation today. Pain: pt c/o dry mouth and sore throat Respiratory Status: Room air Vision: WFL per pt Hearing: WFL Current Diet: NPO diet (Give Meds); DHT Feeding Status: Pt is dependent Dependent for Oral Care? Yes Cognitive-Linguistic Status: Slow and groggy appearing, w/ consistent but delayed, minimal responses, some ? Delirium / confusion as well. Orientation Log Follows Commands: Follows single step commands, Requires increased time to complete, Requires repetition Positioning: HOB at 80 degrees Oral / Laryngeal Mechanism Clinical Assessment: ?? Lingual: ROM intact, reduced agility ?? Labial / Buccal: WFL ?? Velar: limited elevation noted w/ phonation ?? Sensation: WFL for facial, pt w/o gag when using Yankauer to suction repeatedly well past base of tongue to clear thick secretions ?? Vocal fold function and airway protection: Weak, dysphonic voice; weak, wet sounding cough, reduced breath support, only 2-4 words per breath group ?? Speech Intelligibility: reduced by low volume, breathy quality ?? Mucosa: Moist, thick secretions noted in back of throat, repeatedly suctioned outt to clear ?? Dentition: present and adequate Bolus Presentation(s) ?? Ice chips ?? moist swabs Oral Preparatory Phase ?? Mastication: NA, pt sucking on ice, not chewing ?? Oral Transit: Delayed (pt appearing to want to savor having ice in mouth, rather than due to tongue weakness) ?? Bolus Cohesion: Not noted given limited trials / sonsistencies ?? Labial Seal / Loss: Adequate lip seal around swab and spoon, no anterior spillage ?? Oral Stasis: Not noted Pharyngeal Phase ?? Laryngeal Elevation: Appears reduced, effortful ?? Vocal quality change: Yes ?? Cough / throat clear: Yes, 5-10 seconds after almost every trial, productive coughing up to backof throat, thick white mucous, requiring repeated deep oral suctioning to past faucil pillars (no gag noted) ?? Pt. complaint of food getting stuck: Pt nods in agreement ?? Fatigue across trials: Yes ?? Respiratory rate and respiratory swallow pattern: Yes, during weak coughing Esophageal Phase ?? Suspected esophageal dysphagia secondary to: reports of extensive esophageal dysfunction Compensatory Techniques: Pt was unable to return demonstrate effective use of strategies secondary to current mental status, fatigue, and weakness. Education: Pt educated on results and recommendations, and verbalized some understanding. Patient status, treatment and swallow recommendations were discussed with nursing. Assessment: During very limited trials, oral phase of swallow appeared functional, however, pharyngeal dysphagia and likely esophageal dysphagia strongly suspected given delayed, deep, wet, congested, productive coughing was noted w/ almost every trial small ice chip and even at times w/ moist swabs. Copious thick white secretions repeated brought up w/ coughing to base of tongue and repeatedly suctioned out, w/o producing any gag reflex. AMS and moderate- severe dysphonia also noted. Diagnosis: strong clinical s/s pharyngeal and likely esophageal dysphagia given pt's hx, dysphonia,AMS Recommendations: Diet: NPO PO medications: IV or other alternative means only Aspiration precautions: Excellent oral care Patient is dependent for oral care and is a good candidate for the current oral care barge pilot program taking place on specific units at [facility]. Please use LE oral suction toothbrushes to perform oral care 2-4x daily. Pt will benefit from continued GAS STATION SUPERVISOR services while hospitalized Speech Therapy Goals: (To be met by discharge) Pt will tolerate least restrictive diet without evidence of dysphagia / aspiration. Pt / caregiver will be independent with aspiration precautions, diet modifications, and safe swallowing strategies. Pt will initiate swallows within 1-2 sec given thermal / gustatory stimulation Pt will demonstrate effortful swallows with good execution Pt will improve orientation to x4 consistently with use of frequent re- orientations and visual aides in room as able. , Pt will participate in simple reasoning and memory tasks to promote cognitive simulation and reduce risk of delirium in ICU setting. and Pt/caregivers will follow anti-delirium precautions independently with assist from staff as needed Plan: Pt to be seen 2-3 times/week Pt./family are in agreement with treatment plan. G[employer] STATION SUPERVISOR session: 24 min Thank you for this consult with this patient. Please feel free to page me with any questions or concerns. Briana Bryant MA, [facility]-[employer]ATION SUPERVISOR Pager: [phone] Speech-Language Pathology Inpatient Rehabilitation Medicine * Aileen Mayorga MD - 08/22/2022 8:37 AM EDT CRITICAL CARE ATTENDING PROGRESS NOTE ASSESSMENT, MANAGEMENT, and DECISION MAKING: NEURO: Would resume home medications for depression. RESP: Stable s/p extubation yesterday. CV: Continues DAPT, metoprolol, statin. Consider ischemia evaluation when stabilizes further. ID: Appreciate ID, ortho, IR input. Following recommendations. BAL data negative to date, results still pending. Continue antibiotic coverage. GI: Ask speech to do bedside swallow. Continues on enteral nutrition. HEME: Given clinical course and drifting hemoglobin, would transfuse today and follow results. Alsoon oral iron. Physical therapy post hip surgery needed. Patient seen and examined. Ishan Irving is a 62 y.o. female has issues that include: Active Hospital Problems Diagnosis ??? Shock ??? Bipolar disorder ??? T2DM (type 2 diabetes mellitus) Resolved Hospital Problems No resolved problems to display. Active Non-Hospital Problems Diagnosis ??? Neuroleptic-induced parkinsonism ??? BMI 37.0-37.9, adult ??? GERD (gastroesophageal reflux disease) ??? Farrell's esophagus EXAM: Temp: [37.2 ??C (99 ??F)-37.8 ??C (100 ??F)] Heart Rate: [61-107] Resp: [13-29] BP: (83-127)/(44-94) SpO2: [94 %-100 %] Heart Rate from SpO2: -- Physical Exam Constitutional: General: She is not in acute distress. Appearance: She is not ill-appearing. Cardiovascular: Rate and Rhythm: Normal rate. Pulmonary: Effort: Pulmonary effort is normal. Breath sounds: Normal breath sounds. Body mass index is 31 kg/m??. IS PATIENT CRITICALLY ILL ? Is there a high potential of sudden, clinically significant, or life threatening deterioration? No * Reynaldo Avila MD - 08/22/2022 8:29 AM EDT Images from the original note were not included. Cardiology ICU Progress Note ID: Ishan Irving is a 62 year old female with a medical history notable for recent L femoral neck fracture, bipolar disorder, resolving medication- induced Parkinsonism, insulin-dependent diabetes mellitus, hx of alcohol use disorder (reported to be in remission for 1.5 years) c/b chronic pancreatitis, iron deficiency anemia, GERD c/b esophagitis & Farrell's esophagus presenting in transfer from [facility], suspected to be in cardiogenic shock and found to be in mixed shock with concern for stress cardiomyopathy. 24 Hour Events/Subjective: Overnight: - Extubated, tolerating very well. No acute events overnight. This AM: - Appears well with 2L NC, tracking around room and responding verbally, though voice does sound soft/mildly hoarse. Vasoactive & Sedating Medications: Infusions: Continuous Infusions: ??? tube feeding diet 45 mL/hr at 08/22/22 0800 ??? insulin regular human 3 Units/hr (08/22/22 0800) Objective: Vitals Last value Range last 24 hrs Temperature Temp: 37.5 ??C (99.5 ??F) Temp: [37.2 ??C (99 ??F)-37.8 ??C (100 ??F)] Heart Rate Heart Rate: 80 Heart Rate: [61-107] Blood Pressure BP: 102/62 BP: (83-127)/(44-94) Art Line BP BP (Arterial Line): 124/70 BP (Arterial Line): -- MAP (NBP): [59 mmHg-103 mmHg] Respiratory Rate Resp: 22 Resp: [13-29] SpO2 SpO2: 98 % SpO2: [94 %-100 %] Oxygen Delivery Oxygen Therapy O2 Device: Nasal cannula O2 Flow Rate (L/min): 2 L/min FiO2 (%): 21 % Reason for Oxygen: Titration down from previous higher respiratory or O2 need Intake/Output Summary (Last 24 hours) at 08/22/2022 0829 Last data filed at 08/22/2022 0800 Gross per 24 hour Intake 1120.63 ml Output 1120 ml Net 0.63 ml Patient Vitals for the past 168 hrs: Weight 08/22/22 0400 72 kg (158 lb 11.7 oz) 08/21/22 0400 72.5 kg (159 lb 13.3 oz) 08/20/22 0233 72.3 kg (159 lb 6.3 oz) 08/19/22 0206 73.1 kg (161 lb 2.5 oz) 08/18/22 0400 69.7 kg (153 lb 10.6 oz) 08/17/22 0500 71.9 kg (158 lb 8 oz) 08/16/22 0400 73.8 kg (162 lb 11.2 oz) Admit wt: 69 kg Physical Exam: Gen: Chronically ill-appearing woman. CV: Tachycardic, no murmurs or gallops noted. Resp: Coarse breath sounds bilaterally. Abd: BS+, no rebound tenderness Ext: 2+ distal pulses, no pedal edema. Feet warm to touch. No erythema or swelling surrounding the left hip incision. No observable tenderness to deep palpation of the left hip. Neuro: RASS 0 Labs: Recent Labs 08/22/22 0339 08/21/22 0346 08/20/22 0030 08/19/22 0120 08/18/22 0230 WBC 16.6* 20.9* 28.0* 28.3* 24.3* HGB 7.1* 7.4* 8.2* 8.7* 9.0* HCT 23.7* 24.2* 26.4* 27.9* 28.2* PLATELET 445* 381* 351 301 226 MCV 66.9* 65.8* 64.7* 64.1* 64.2* Recent Labs 08/22/22 0339 08/21/22 1545 08/21/22 1000 08/21/22 0346 08/20/22 0030 08/19/22 1345 08/19/22 0120 08/18/22 0230 NA 145 -- -- 145 144 145 142 139 CL 111* -- -- 107 107 106 108* 104 CO2 27 -- -- 31 28 29 25 25 K 4.1 3.9 4.4 3.7 4.1 4.1 3.8 4.2 MAGNESIUM 0.86 -- -- 0.87 0.94 -- 0.83 1.02 PHOS 2.4* -- -- 2.4* 1.7* 2.9 1.4* 1.2* CALCIUM 8.7 -- -- 8.7 8.5 8.6 8.4* 8.4* BUN 20* -- -- 22* 21* 20* 18 25* CREATININE 0.56* -- -- 0.60* 0.55* 0.59* 0.50* 0.67* LFTs Recent Labs 08/20/22 1400 08/15/22 0950 PROT 5.6* 5.6* ALBUMIN 2.5* 2.4* AST 39* 21 ALT 20 12 ALKPHOS 213* 102 BILITOT <0.2* <0.2* BILIDIR 0.1 0.1 Coags No results for input(s): INR, PT, PTT, FIBRINOGEN, DDIMER in the last 168 hours. Invalid input(s): THROMBIN TIME Cardiac Enzymes Recent Labs 08/19/22 0120 CK 32 Endocrine Recent Labs 08/20/22 1400 08/15/22 0000 TSH 1.90 0.28 Recent Labs 08/22/22 0800 08/22/22 0553 08/22/22 0340 08/22/22 0215 08/22/22 0043 08/21/22 2226 08/21/22 1948 08/21/22 1759 08/21/22 1706 08/21/22 1524 08/21/22 1334 08/21/22 1258 POCGLU 156 154 182 232* 233* 226* 123 138 152 148 191 196 Microbiology: 08/21 BAL Lower Resp culture NGTD, no microorganisms on gram stain. 08/21 Fungal, AFB cultures NGTD. 08/19, BCx NGTD TTE: 08/19: -Left ventricular systolic function is moderately reduced. The left ventricular ejection fraction is 32% by Dahl's biplane. The apical portions of the LV remain akinetic with preservation of the basal segments. There is no apical thrombus seen with echo enhancing agent. Imaging: CT Chest 08/20: 1. Multifocal lower lobe predominant consolidative opacities with additional upper lobe opacities consistent with multifocal pneumonia. Compared to the prior CT of 08/12/2022 the number and size of the opacities has decreased. Recommend follow-up imaging in 3-6 months to document complete resolution. 2. New small, sub-1 cm early cavitation of multiple opacities predominantly within the posterior left upper lobe and left lower lobe. 3. New curvilinear splenic lesions could represent infarct versus late arterial phase splenic arterial opacification. CT Left Hip 08/20: 1. Uncomplicated left femoral neck ORIF with unchanged postoperative alignment. ?? 2. Moderate skin thickening and subcutaneous stranding about the lateral left hip with lateral left thigh intramuscular edema and fascial thickening. These findings are nonspecific and may be seen in the routine postoperative setting. Underlying soft tissue infection with infectious or inflammatory myositis may also have this appearance. Correlation with physical examination, clinical symptoms, and laboratory findings is recommended. ?? 3. 2.3 x 1.6 x 1.8 cm focus of more coalescent fluid attenuation centered in the subcutaneous fat of the posterolateral thigh roughly at the level of the proximal femoral fixation screw heads. There is no rim-enhancing to suggest a mature, organized abscess at this time. However, this finding could represent phlegmon in appropriate clinical context, or it could represent a postsurgical collection, the contents of which may be sterile or infected. ?? 4. There is a rectal tube in place. However, there remains a large stool ball in the rectum with free fluid versus coalescent edema on both the anterior and posterior margins of the distended rectum. In appropriate clinical context, these findings could represent proctocolitis or stercoral colitis. Assessment & Plan: Ms. Irving is a 62 year old female with a medical history notable for insulin-dependent diabetes mellitus, bipolar disorder, alcohol use disorder in remission, iron deficiency anemia, and recent L femoral neck fracture s/p surgical fixation presenting in transfer with acute hypoxic respiratory failure, pneumonia, and newfound heart failure. Appears well today following extubation yesterday evening. No significant events following extubation, and now stable on 2L NC. Infectious workup ongoing, though she has remained afebrile for over 24hours now with improving leukocytosis. Orthopedics and IR saw Ishan yesterday and were not concerned about her left hip as a source of infection; IR did not feel that there was a good target for drainage. Will continue zosyn for now given unclear source. Aggressive bowel regimen including suppository, enema, and other supportive medications were given overnight without significant solid bowel movement. BAL also performed, cultures pending. Now re-initiating depakote at 500mg Q3PM / 250mg QPM with plans to increase to full dose 1mg Q3PM with follow-up VPA level 72 hours after initiation. Will also transfuse for Hgb 7.1 this morning given recent cardiac history; will continue to plan for LHC when medically optimized. Neuro: #Bipolar Disorder - Starting depakote 500mg Q3PM, 250mg QPM today 08/22. Currently liquid with Dobhoff tube. - Plan to increase to full home regimen (250mg QPM / 1g Q3PM) by 08/24. - 72 hours following first dose, check VPA level. Pulmonary: #Acute hypoxic respiratory failure, resolved. #Bilateral airspace opacities/multifocal pneumonia - Respiratory support with LFNC PRN. - Antibiotics: zosyn, continuing. - Follow BCx. - Goal net even today. - Galactomannan, fungitell pending. - BAL cultures pending. ?? Cardiac: #Distributive Shock #NSTEMI Type I vs Type II #HFrEF (EF 25%) #C/f Stress Cardiomyopathy - ASA 81mg, Plavix 75mg. - Therapeutic heparin converted to subQ prophylactic today. - Ischemic workup when more stable - Mg >1, K >4 ?? Renal/Fluids/Electrolytes: #MARILIN, resolved. - Likely in setting of low perfusion state, interventions to improve her perfusion as above - QD BMP. ?? GI: #GERD c/b Farrell's esophagus & esophagitis #Constipation #Rectal wall edema 2/2 stool ball - Flexiseal removed yesterday. - Bowel regimen including miralax, pericolace, dulcolax. - Continue home PPI 40 qd ?? Endocrine: #Insulin-dependent diabetes - Regular insulin w/ tube feeding. ?? #Metabolic acidosis - Likely in setting of shock, will trend gas ?? Hematology/oncology: #Mixed JERRICA and AOCD - Oral iron supplementation started 08/21. - Ferritin, Iron, TIBC resulted; mixed picture - Transfuse for Hb <8 - Transfusing 1u pRBC 08/22. ?? #Leukocytosis - Suspect 2/2 infection vs shock state vs steroid effect - Abx as below ?? Infectious disease: #Septic shock #Bilateral airspace opacities/multifocal pneumonia #L Hip Fluid Collection #Subcentimeter left posterior upper lobe cavitary lesions - Repeat blood cultures, UA, sputum cultures, follow. - BAL performed yesterday, follow cultures. - IR, orthopedic surgery consulted for evaluation of L hip fluid collection. No intervention/drainable target. - Abx: Zosyn #Routine Diet: NPO diet (Give Meds) DVT prophylaxis: heparin gtt GI Prophylaxis: home PPI Code Status: Attempt Cardiopulmonary Resuscitation - Inpatient Alternative Medical Decision Maker: zac Avila MD Internal Medicine, PGY-1 Cardiology [facility] #[id number] Associated attestation - Milagros Hernandez MD - 08/22/2022 4:18 PM EDT CARDIOLOGY ATTENDING NOTE Patient: Ishan Irving Date of Service: 08/22/2022 Date of Admission: 08/14/2022 Length of Stay Hospital Day 8 days Please see the below note by Dr. Avila for details. I have interviewed and examined the patient independently and I concur with the assessment and plan as documented, with exceptions/additions/emphases as noted below. The case was discussed on cardiology rounds and we reviewed the plan of care with the team and patient. Somewhat eventful day yesterday. Initial c/f infected left hip based on imaging; Ortho assessment not consistent with this. Underwent bronchoscopy (diagnostic) and extubated yesterday afternoon. She has done well since then in terms of hemodynamics and respiratory status, although has clear troublemanaging her secretions and overtly failed her [employer]ATION SUPERVISOR evaluation as expected. She is being maintained strict NPO with meds and feeding through her DHT for now. Incidentally discovered stool ball with like stercoral colitis on imaging yesterday as well; escalating bowel regimen today. We are also addding back her home Depakote as per recs from Psych with slow uptitration. Continue empiric antibiotic therapy pending culture data and further input from ID regarding duration of therapy. Attending Attestation and Certification Please see Reynaldo Avila MD's note for details of the patient history of presentation and data. I have discussed, reviewed and agree with the documented History, Physical findings, Assessment and Plan of care. I have examined the patient myself and personally reviewed all studies. In addition, I certify thatI am a D-H credentialed attending provider with admitting privileges and that the patient meets or has met medical necessity to require an inpatient IPI level of care meeting a minimum of two midnights or is on the [facility] inpatient only procedure list (status C) due to: multifocal aspiration pneumoniawith respiratory compromise, altered mental status/ toxic metabolic encephalopathy, severe protein calorie malnutrition, stercoral colitis, acute anemia requiring transfusion. Milagros Hernandez MD Cardiovascular Medicine Personal Pager [phone] 08/22/2022 4:13 PM * Rock Purcell, RT - 08/21/2022 10:32 AM EDT AMV Protocol: Yes SBT Protocol: Yes SBT: Passed Vent Settings: Ventilator Mode: PS/CPAP PEEP Set: 8 FiO2: 21 % PSV: 10 Ventilator Measurements: Resp: 29 Vt Spontaneous: 400 Ve: 7 SpO2: 98 % EtCO2: 34 mmHg Airway: 7.0 @ 23 cm at the Teeth. Skin Integrity: WDL Breath Sounds: Coarse Secretions: Moderate, Thin, Clear/White Assessment / Events: Received patient in PSV 10/8 21%, alert oriented and following commands. [id number]: SBT Passed on CPAP +5 21%, Pre SBT Vitals BP 119/51,HR 62,RR 23,Sp 98,Et 33,MVe 7.2,Vt 300 End SBT Vitals: BP 126/94,HR 95,RR 28,Sp 96,Et 31,MVe 8.9,Vt 335 1102: Returned to PSV 5/5 21% 1109: Returned to PSV 8/8 21%, per continued tachypnea/pending bedside procedure. 1625: Placed in VCV, Bedside Bronch performed, sputum samples of JACQUI & LLL sent to lab. 1645: Per less sedation on board patient returned to PSV 02/11 1708: FiO2 weaned to 21%, per SpO2. 1742: Per plan, with a positive cuff leak, extubated and placed patient on 5L NC, patient having a coughing fit and expectorating a moderate amount of thin clear/white secretions, able to faintly phonate. NARD noted. Patient stble on NC at change of shift. Plan: Continue to support patient with supplemental O2 wean as tolerated. Rock Purcell, * Neva Zhao MSW - 08/21/2022 10:03 AM EDT Social Work Response to Consult Consult: Nursing consult to Social Work Ordered at: 08/17/22 1023 Reason for Consult? finanacial concerns Social Work Response: JUVENILE JUSTICE SPECIALIST met with Ishan's , Antonio, and their son to offer support and follow up on social work consult. JUVENILE JUSTICE SPECIALIST encouraged Antonio to reach out to their Choices for Care liaisonfor questions related to caregiver benefits, including short term disability. JUVENILE JUSTICE SPECIALIST also provided Antonio with information for Emergency/General Assistance and [place] [phone]. This JUVENILE JUSTICE SPECIALIST provided contact information for the Office of Care Management and encouraged Antonio to reach out for additional social work support, if needed. Antonio appreciative of support and information. Follow Up Needed: Ongoing support * Reynaldo Avila MD - 08/21/2022 8:43 AM EDT Images from the original note were not included. Cardiology ICU Progress Note ID: Ishan Irving is a 62 year old female with a medical history notable for recent L femoral neck fracture, bipolar disorder, resolving medication- induced Parkinsonism, insulin-dependent diabetes mellitus, hx of alcohol use disorder (reported to be in remission for 1.5 years) c/b chronic pancreatitis, iron deficiency anemia, GERD c/b esophagitis & Farrell's esophagus presenting in transfer from [facility], suspected to be in cardiogenic shock and found to be in mixed shock with concern for stress cardiomyopathy. 24 Hour Events/Subjective: Overnight: - NAEON. Vent settings PS 21% FiO2 18/8, ~400TV. SBT trialed, stopped d/t patient anxiety. Liquid/water-y diarrhea overnight. This AM: - Now significantly more responsive, awake at baseline and tracking throughout room. Squeezing handto command. Vasoactive & Sedating Medications: Infusions: Continuous Infusions: ??? tube feeding diet Stopped (08/21/22 0401) ??? insulin regular human 1.5 Units/hr (08/21/22 0800) Ventilator Settings: Mode: Servo U Ventilator Mode: PS/CPAP, SET RR: TV: PEEP: FiO2: VARIABLES Tidal Volume Set: 360 Set PEEP (cm H2O): 8 Set FiO2: 21 % PATIENT RR: PIP: Pplateau: SpO2: OUTPUT Resp: 19 Peak Inspiratory Pressure: 19 Plateau Pressure (cm H2O): 20 SpO2: 97 % ABG (Arterial Blood Gas) Recent Labs 08/20/22 0541 08/19/22 1445 08/19/22 0507 08/18/2261408/16/22200808/16/22 1759 PHART 7.56* -- 7.54* 7.51* 7.48* 7.53* [id number] 31* -- 31* 30* 34* 26* PO2ART 92 -- 73* 62* 78* 48* [id number] 27.3* -- 25.7 23.2 25.0 21.2 LACTATEVEN 1.6 1.6 1.2 1.6 1.5 1.3 [id number] 30 -- 30 30 30 21 PFRATIOART2 307 -- 243 207 260 229 VBG (Venous Blood Gas) Recent Labs 08/20/22 0541 08/19/22 1445 08/19/22 0507 08/18/2261408/16/222008 LACTATEVEN 1.6 1.6 1.2 1.6 1.5 Mixed Venous Sat Recent Labs 08/16/22201108/16/22 1558 08/16/22 1211 08/16/22 1117 08/16/22 0948 [id number] 56.6 50.5 56.0 49.3 56.5 Objective: Vitals Last value Range last 24 hrs Temperature Temp: 37.5 ??C (99.5 ??F) Temp: [37.5 ??C (99.5 ??F)-38.4 ??C (101.1 ??F)] Heart Rate Heart Rate: 82 Heart Rate: [76-120] Blood Pressure BP: (!) 112/35 BP: (99-131)/(35-71) Art Line BP BP (Arterial Line): 124/70 BP (Arterial Line): -- MAP (NBP): [54 mmHg-85 mmHg] Respiratory Rate Resp: 19 Resp: [18-31] SpO2 SpO2: 97 % SpO2: [93 %-100 %] Oxygen Delivery Oxygen Therapy O2 Device: Ventilator O2 Flow Rate (L/min): 21 L/min FiO2 (%): 21 % Reason for Oxygen: Acute clinical labored breathing Intake/Output Summary (Last 24 hours) at 08/21/2022 0843 Last data filed at 08/21/2022 0600 Gross per 24 hour Intake 1431.94 ml Output 2390 ml Net -958.06 ml Patient Vitals for the past 168 hrs: Weight 08/21/22 0400 72.5 kg (159 lb 13.3 oz) 08/20/22 0233 72.3 kg (159 lb 6.3 oz) 08/19/22 0206 73.1 kg (161 lb 2.5 oz) 08/18/22 0400 69.7 kg (153 lb 10.6 oz) 08/17/22 0500 71.9 kg (158 lb 8 oz) 08/16/22 0400 73.8 kg (162 lb 11.2 oz) 08/15/22 0200 69.1 kg (152 lb 5.4 oz) 08/14/22 2322 69 kg (152 lb 1.9 oz) Admit wt: 69 kg Physical Exam: Gen: Intubated, critically-ill appearing woman. CV: Tachycardic, no murmurs or gallops noted. Resp: Ventilated breath sounds with rhonchi bilaterally Abd: BS+, no rebound tenderness Ext: 2+ distal pulses, no pedal edema. Feet warm to touch. No erythema or swelling surrounding the left hip incision. No observable tenderness to deep palpation of the left hip. Neuro: RASS -2 Labs: Recent Labs 08/21/22 0346 08/20/22 0030 08/19/22 0120 08/18/22 0230 08/17/22 0045 WBC 20.9* 28.0* 28.3* 24.3* 18.6* HGB 7.4* 8.2* 8.7* 9.0* 8.2* HCT 24.2* 26.4* 27.9* 28.2* 26.0* PLATELET 381* 351 301 226 176 MCV 65.8* 64.7* 64.1* 64.2* 65.0* Recent Labs 08/21/22 0346 08/20/22 0030 08/19/22 1345 08/19/22 0120 08/18/22 0230 08/17/22 1515 08/17/22 0045 NA 145 144 145 142 139 -- 136 CL 107 107 106 108* 104 -- 101 CO2 31 28 29 25 25 -- Not Perf K 3.7 4.1 4.1 3.8 4.2 < > Not Perf 4.6 MAGNESIUM 0.87 0.94 -- 0.83 1.02 -- 0.89 PHOS 2.4* 1.7* 2.9 1.4* 1.2* -- 2.2* CALCIUM 8.7 8.5 8.6 8.4* 8.4* -- 8.3* BUN 22* 21* 20* 18 25* -- 36* CREATININE 0.60* 0.55* 0.59* 0.50* 0.67* -- 1.10 < > = values in this interval not displayed. LFTs Recent Labs 08/20/22 1400 08/15/22 0950 08/15/22 0305 PROT 5.6* 5.6* 5.6* ALBUMIN 2.5* 2.4* 2.4* AST 39* 21 25 ALT 20 12 13 ALKPHOS 213* 102 99 BILITOT <0.2* <0.2* 0.2 BILIDIR 0.1 0.1 0.1 Coags Recent Labs 08/15/22 0000 INR 2.0 PT 22.3* PTT 154* Cardiac Enzymes Recent Labs 08/19/22 0120 08/14/22 2355 CK 32 -- PROBNP -- >35,000* Endocrine Recent Labs 08/20/22 1400 08/15/22 0000 TSH 1.90 0.28 Recent Labs 08/21/22 0828 08/21/22 0750 08/21/22 0606 08/21/22 0348 08/21/22 0157 08/20/22 2355 08/20/22 2154 08/20/22 2046 08/20/22 1821 08/20/22 1627 08/20/22 1411 08/20/22 1213 POCGLU 118 130 141 187 167 221* 195 118 164 180 150 163 Heme No results for input(s): LDH, HAPTOGLOBIN, URICACID in the last 168 hours. ABG (Arterial Blood Gas) Recent Labs 08/20/22 0541 08/19/22 1445 08/19/22 0507 08/18/22 0615 08/16/22200808/16/22 1759 PHART 7.56* -- 7.54* 7.51* 7.48* 7.53* [id number] 31* -- 31* 30* 34* 26* PO2ART 92 -- 73* 62* 78* 48* [id number] 27.3* -- 25.7 23.2 25.0 21.2 LACTATEVEN 1.6 1.6 1.2 1.6 1.5 1.3 [id number] 30 -- 30 30 30 21 PFRATIOART2 307 -- 243 207 260 229 VBG (Venous Blood Gas) Recent Labs 08/20/22 0541 08/19/22 1445 08/19/22 0507 08/18/22 0615 08/16/222008 LACTATEVEN 1.6 1.6 1.2 1.6 1.5 Mixed Venous Sat Recent Labs 08/16/22201108/16/22 1558 08/16/22 1211 08/16/22 1117 08/16/22 0948 [id number] 56.6 50.5 56.0 49.3 56.5 Microbiology: 08/19, BCx NGTD 08/15, UCx growing 1-9k colonies. 08/15, sputum culture NGTD. 08/17, MRSA nares PCR negative. Negative legionella antigen. TTE: 08/15: Interpretation Summary -Left ventricle is mildly dilated. [...] on today's date, LVEF is slightly improved. ?? Imaging: CT Chest 08/20: 1. Multifocal lower lobe predominant consolidative opacities with additional upper lobe opacities consistent with multifocal pneumonia. Compared to the prior CT of 08/12/2022 the number and size of the opacities has decreased. Recommend follow-up imaging in 3-6 months to document complete resolution. 2. New small, sub-1 cm early cavitation of multiple opacities predominantly within the posterior left upper lobe and left lower lobe. 3. New curvilinear splenic lesions could represent infarct versus late arterial phase splenic arterial opacification. CT Left Hip 08/20: Read pending. Assessment & Plan: Ms. Irving is a 62 year old female with a medical history notable for insulin-dependent diabetes mellitus, bipolar disorder, alcohol use disorder in remission, iron deficiency anemia, and recent L femoral neck fracture s/p surgical fixation presenting in transfer with acute hypoxic respiratory failure, pneumonia, and newfound heart failure. Appearing overall improved overnight without fever, improving leukocytosis, and better mental status. However, CT Chest ordered following ID consult yesterday now noting small sub-centimeter cavitarylesions. Ordered fungitell, galactomannan. CT L Hip has findings concern for possible infection (vspost- surgical changes); reached out to orthopedics/IR for possible drainage, and will defer bronchoscopy in the mean time given likely alternate source. CT L hip also noted stool ball with surrounding edema of the rectum, which per ID could also be a reasonable source of ongoing infectious process.Removed flexiseal and now attempting soap suds enema. Splenic infarcts were noted on chest CT, but will defer BRENDEN now given low suspicion for endocarditis. Plan for extubation should results of IR drainage of L Hip fluid collection obviate need for bronchoscopy. Will need LHC following extubation. Neuro: #Sedation/analgesia - Normal CTH 08/18, EEG w/ generalized slowing. - MRI performed 08/19, unremarkable. Pulmonary: #Acute hypoxic respiratory failure #Bilateral airspace opacities/multifocal pneumonia - Mechanical ventilation, ARDSnet protocol - Antibiotics: zosyn, continuing. - Follow BCx. - Goal net even today. - Galactomannan, fungitell pending. - Consider BAL in future, deferring for now. ?? Cardiac: #Distributive Shock #NSTEMI Type I vs Type II #HFrEF (EF 25%) #C/f Stress Cardiomyopathy - ASA 81mg - Therapeutic heparin converted to subQ prophylactic today. - Consider ischemic workup when more stable - Mg >1, K >4 ?? Renal/Fluids/Electrolytes: #MARILIN, resolved. - Likely in setting of low perfusion state, interventions to improve her perfusion as above - Trend BMP BID to assess renal function & electrolytes ?? GI: #GERD c/b Farrell's esophagus & esophagitis - Continue home PPI 40 qd ?? Endocrine: #Insulin-dependent diabetes - Insulin gtt ?? #Metabolic acidosis - Likely in setting of shock, will trend gas ?? Hematology/oncology: #Iron deficiency anemia - Consider iron supplementation once out of critical illness - Transfuse for Hb <8 ?? #Leukocytosis - Suspect 2/2 infection vs shock state vs steroid effect - Abx as below ?? Infectious disease: #Septic shock #Bilateral airspace opacities/multifocal pneumonia #L Hip Fluid Collection #Subcentimeter left posterior upper lobe cavitary lesions - Repeat blood cultures, UA, sputum cultures, follow. - Deferring BAL for now. - Consulted orthopedics regarding L hip. - Consulting IR for possible drainage. - Abx: Zosyn #Routine Diet: NPO diet (Give Meds) DVT prophylaxis: heparin gtt GI Prophylaxis: home PPI Code Status: Attempt Cardiopulmonary Resuscitation - Inpatient Alternative Medical Decision Maker: zac Avila MD Internal Medicine, PGY-1 Cardiology [facility] #[id number] Associated attestation - Milagros Hernandez MD - 08/21/2022 3:44 PM EDT CARDIOLOGY ATTENDING NOTE Patient: Ishan Irving Date of Service: 08/21/2022 Date of Admission: 08/14/2022 Length of Stay Hospital Day 7 days Please see the below note by Dr. Avila for details. I have interviewed and examined the patient independently and I concur with the assessment and plan as documented, with exceptions/additions/emphases as noted below. The case was discussed on cardiology rounds and we reviewed the plan of care with the team and patient. Improving mental status overnight and this morning. Purposefully responding and intermittently following commands. Failed SBT but due to what appeared to be anxiety rather than respiratory issues. CTchest obtained at the request of ID showing small cavitations in the setting of her multifocal pneumonia. Will bronch in an attempt to identify an organism and narrow antibiotic therapy. CT of the hip also at ID's recommendation with some concern for infection, however, orthopedics consult not concerned and reports findings consistent with normal post-surgical changes/findings. Incidentally likely stercoral colitis which we will need to continue to monitor. Following bronch we will assess approp riateness for extubation. Ischemic evaluation remains pending but will defer this until patient extubated and clinically stable. Continue supportive care. Appreciate input from [employer] consultant services. Attending Attestation and Certification Please see Reynaldo Avila MD's note for details of the patient history of presentation and data. I have discussed, reviewed and agree with the documented History, Physical findings, Assessment and Plan of care. I have examined the patient myself and personally reviewed all studies. In addition, I certify thatI am a D-H credentialed attending provider with admitting privileges and that the patient meets or has met medical necessity to require an inpatient IPI level of care meeting a minimum of two midnights or is on the [facility] inpatient only procedure list (status C) due to: decompensated congestive heart failure requiring IV medication and fluid monitoring, acute respiratory compromise and/or hypoxia requiring assessment every 4 hours and the ability to respond immediately to the patient's needs, and multifocal pneumonia requiring IV antibiotic therapy. Milagros Hernandez MD Cardiovascular Medicine Personal Pager [phone] 08/21/2022 3:38 PM * Parris Leyva MD - 08/21/2022 8:14 AM EDT Active ID issues: Fever in ICU Bilateral Pneumonia ?? SUBJECTIVE Intubated Opens eyes to verbal commands 24 HOUR EVENTS: -Tmax 38.3 @ 1600 OBJECTIVE I reviewed vital signs from the past 24 hours: Temperature 37.5, heart rate 52, blood pressure 112/35, mechanically ventilated Exam: General: intubated and Mechanically Ventilated CV: Sinus tachycardia Resp: clear to auscultation bilaterally; no wheezing, crackles, or rhonchi Abd: soft, non-distended, non-tender on palpation Ext: Left lateral hip sutures in place, No redness or erythema seen Neuro: Opens eyes to verbal commands ROS: 10 point review of system negative except as above I have reviewed Labs: WBC 20.9, hemoglobin 7.4, platelets 381 Creatinine 0.6, sodium 145, potassium 3.7 Lipase 178 Antibiotics: Pip/tazo( 08/15-) ?? Azithromycin 08/18 Vancomycin( 08/15-08/17) ?? Microbiology: 08/14 blood culture ngtd at 5 days 08/15 MRSA nasal PCR negative 08/15 Blood cultures no growth at 5 days 08/15 Urine culture negatice 08/19 blood culture ngtd 08/19 induced sputum GS shows no micro organisms 08/19 Blood culture no growth Lines/Mcrae: Peripheral IV PICC line(08/19) Urethral Catheter(08/15) Imaging: reviewed IMPRESSION: Ishan Irving is a 62 y.o. female with recent left femoral neck fracture s/p ORIF who was admitted with unresponsiveness. CT chest consistent with bilateral pneumonia, intubated and requiring vasopressors, with persistent fevers while she has been on Zosyn and vancomycin (stopped 08/17). Repeat CT chest shows improving bilateral consolidations but new small cavitations in JACQUI/LLL and new splenic lesions, CT left hips shows left hip intramuscular edema, Fluid collection at the left lateral thigh and large rectal stool ball with free fluid vs edema at the anterior and posterior margins of the distended rectum. It could be postulated that patient had post operative left hip infection leading to sepsis and altered mentation followed by aspiration leading to multiple focal pneumonia with hypoxic respiratory failure compounded by poor EF secondary to Taktasubo's cardiomyopathy. We recommend consulting Orthopedic surgery/IR to assess hip fluid collection and sampling. Surgicalconsultation may help assess for stercoral colitis Currently is on pip/tazo which will cover anaerobes and Staph(not MRSA), Strep and GNRs. Will need follow up imaging to assess for lung cavitations. In absence of documented bacteremia its appears unlikely that patient had endocarditis(TTE did not show vegetation or valvular regurgitation) leading to bilateral multifocal pneumonia and splenic infarcts(splenic findings could be explained by arterial phase splenic opacification). Does not need BRENDEN at this time since the clinical syndrome is explained by findings documented above. RECOMMENDATIONS: Continue Zosyn 3.375 g IV every 8 hours Consult Orthopedic surgery/IR for left hip fluid aspiration Check daily CBC and CMP I have discussed this case with ID attending Dr. Parris Garsia MD Infectious Diseases Fellow- [email or web address] Pager: [phone] 08/21/2022 8:14 AM ID ATTENDING I agree with assessment and recommendations above. I reviewed the data set and guided decision-making but did not re-examine the patient today. We discussed extensively the possible pathophysiology of her presentation and hospital course (as above). Aspiration seems likely now with the formation ofthese abscesses, although it is unexpected to have negative sputum, and as above the evolution of these should be followed. Parris Leyva MD Page [phone] All of this 35 minute visit were spent on the unit in coordination of care for the patient, regarding treatment of infection as detailed in note above. * Nancy Ernst RD - 08/21/2022 8:10 AM EDT Nutrition Progress Note Ishan Irving is a 62 y.o.??female??with h/o bipolar, DM, EtOH, esophagitis, who presented to [facility] 3 days ago after being found unresponsive at home.?Patient found to have likely pneumonia +/- aspiration, newly reduced EF. Reason for Assessment: ICU Tube Feeding, Follow-up Nutrition Recommendations: Enteral Nutrition: Continue Peptamen AF with a goal rate of 45 ml per hour plus 2 scoop(s) of protein powder daily. This rate is calculated to compensate for unplanned time off feedings due to potential procedures, etc. At goal, this will provide: Peptamen AF Total Volume Per Day: 900 mL Scoops of Protein: 2 Calories per Day: 1130 Protein per Day: 80 g Free Water mL per Day: 831 % RDI: 72 % Continue MVI w/ minerals as EN meets <85% of RDI Monitor hydration status on above TFs as they are concentrated. Pt may need additional fluids depending on IVFs, med flushes, p.o. Intake, etc. Liquid tylenol contains sugar alcohol(s) (sorbitol) that acts as a purgative. If stool output is excessive, consider switching to crushed tablet form. Monitor BM. Goal of one every 24-48hrs while on EN Monitor lytes. Replete as indicated Replete Phos <2.0 I was able to discuss plan with provider [facility] [id number]. Current Nutrition Regimen: Active Orders Diet NPO diet (Give Meds) Frequency: Effective Now Number of Occurrences: Until Specified All Active TF Orders: Tubefeeding Orders (From admission, onward) Start Dose/Rate Route Frequency Ordered Stop 08/17/22 1730 tube feeding diet 900 mL 45 mL/hr Per NG tube CONTINUOUS 08/17/22 1641 Average tube feeding provision over past 2 days; 993mL vs daily goal volume of 900 formula (>100% of goal) Average protein powder provision over the past 2 days; 2 scoops vs daily goal of 2 scoops (100% of goal) Tolerance or barriers to meeting needs: held for SBT Assessment: Lab Results Component Value Date NA 145 08/21/2022 K 3.7 08/21/2022 CL 107 08/21/2022 CO2 31 08/21/2022 BUN 22 (H) 08/21/2022 CREATININE 0.60 (L) 08/21/2022 ESTGFR 101 08/21/2022 MAGNESIUM 0.87 08/21/2022 CALCIUM 8.7 08/21/2022 PHOS 2.4 (L) 08/21/2022 AST 39 (H) 08/20/2022 ALT 20 08/20/2022 ALKPHOS 213 (H) 08/20/2022 BILITOT <0.2 (L) 08/20/2022 BILIDIR 0.1 08/20/2022 HA1C 6.2 (H) 08/15/2022 Lab Results Component Value Date POCGLU 130 08/21/2022 POCGLU 141 08/21/2022 POCGLU 187 08/21/2022 POCGLU 167 08/21/2022 POCGLU 221 (H) 08/20/2022 POCGLU 195 08/20/2022 POCGLU 118 08/20/2022 POCGLU 164 08/20/2022 POCGLU 180 08/20/2022 POCGLU 150 08/20/2022 POCGLU 163 08/20/2022 POCGLU 196 08/20/2022 Patient Lines/Drains/Airways Status Active Nutritional LDAs Name Placement date Placement time Site Days Naso/Oral Tube 08/17/22 1142 small bore weighted ([place]) right nostril 08/17/22 1142 right nostril 4 Peripheral IV Line - Single Lumen 08/14/22 median vein (underside of arm), left 08/14/22 -- -- 7 PICC Line - Double Lumen 08/19/22 165 basilic vein (medial side of arm), right 5 Fr 08/19/225 -- 2 Rectal Tube 08/20/222099 rectal tube with balloon (specify mL) 08/20/222099 -- 1 Urethral Catheter 08/15/22135 100% silicone 14 10 10 08/15/22135 -- 6 Physical Findings Gastrointestinal: feeding tube Tubes: nasogastric tube Oxygen Therapy / Airway Device: Ventilator Shift Pressure Injury Prevention Occiput: No Injury Thoracic Spine: No Injury Sacral: No Injury Ischial - left: No Injury Ischial - right: No Injury Heel - left: No Injury Heel - right: No Injury Elbow - left: No Injury Elbow - right: No Injury Device Sites: NGT, ETT, wrist restraints, IV sites, mcrae, ECG Leads, BP Cuff, Flexiseal Last Bowel Movement: 08/20/22 Intake/Output Summary (Last 24 hours) at 08/21/2022 0810 Last data filed at 08/21/2022 0600 Gross per 24 hour Intake 1431.94 ml Output 2390 ml Net -958.06 ml Relevant medications: liquid tylenol, ferrous sulfate, folic acid, lispro, protonix, Thera M, thamine, insulin gtt, KCl repletion Anthropometrics: Admit Weight: 69 kg Estimated body mass index is 31.22 kg/m?? as calculated from the following: Height as of 08/19/22: 152.4 cm (5'). Weight as of this encounter: 72.5 kg (159 lb 13.3 oz). [place] Body Weight (IBW) (kg): 45.45 Wt Readings from Last 10 Encounters: 08/21/22 72.5 kg (159 lb 13.3 oz) 08/19/22 73.1 kg (161 lb 2.5 oz) 07/03/22 69.9 kg (154 lb) 03/31/22 74.4 kg (164 lb) 02/12/22 78.7 kg (173 lb 9.6 oz) 09/23/21 78.5 kg (173 lb) 03/01/20 79.4 kg (175 lb) 11/22/18 80.3 kg (177 lb) 12/13/14 86.5 kg (190 lb 12.8 oz) 03/20/14 94 kg (207 lb 3.7 oz) Patient Vitals for the past 168 hrs: Weight 08/21/22 0400 72.5 kg (159 lb 13.3 oz) 08/20/22 0233 72.3 kg (159 lb 6.3 oz) 08/19/22 0206 73.1 kg (161 lb 2.5 oz) 08/18/22 0400 69.7 kg (153 lb 10.6 oz) 08/17/22 0500 71.9 kg (158 lb 8 oz) 08/16/22 0400 73.8 kg (162 lb 11.2 oz) 08/15/22 0200 69.1 kg (152 lb 5.4 oz) 08/14/22 2322 69 kg (152 lb 1.9 oz) Weight Source: Bed Estimated / Assessed Needs: Fluid Requirements (mL/day): 2562 mL Kcal / K.95 - 1136.25 Kcal (11 Kcal/Kg - 25 Kcal/Kg IBW) for first 7-10 day in the ICU Estimated Protein Needs: 68.18 - 90.9 g (1.5 g/Kg - 2.0 g/Kg IBW) Nutrition intake and intake history / interview: 08/21: Phos continues to trend low but above 2.0 today (2.4). More responsive than in previous days,but still intubated. Attempting SBT today. Wt relatively stable at this time. Had 1st BM since admit 08/20, will continue to monitor BM and consistency. If stool remain liquid should dc liquid tylenolas it can cause loose stools. 08/18: Phos <2.0 since 08/18 w/ 60mmol of repletion since then, phos 1.4 this AM. EN advanced to goal this AM w/o signs of intolerance. Wt up 4kg since admission and intermittently receiving diuretics, -0.5L since admission 08/17: TF recs as above. Nutrition Focused Physical Exam: Not performed Malnutrition Diagnosis: Not identified (NOLAN Mendez J Parenteral Enteral Nutr. 2011; 36(3): 273-83) Nutrition to continue to follow up while inpatient Nancy Ernst RD Pager #:[phone] * Graciela Mcleod RCP - 08/21/2022 6:09 AM EDT AMV Protocol: Yes SBT Protocol: Yes SBT: Vent Settings: Ventilator Mode: PS/CPAP PEEP Set: 8 FiO2: 21 % PSV: 10 Ventilator Measurements: Resp: 20 Vt Spontaneous: 400 Ve: 7 SpO2: 98 % EtCO2: 33 mmHg Airway: 7.0 @ 23 cm at the Teeth. Skin Integrity: WDL Breath Sounds: rhonchi Secretions: moderate thick white/pale Assessment / Events / Plan of the Day: Pt remains intubated on above vent settings. No changes madethis shift. 0550 attempted SBT. PT very anxious. SBT stopped will repeat later. GRACIELA MCLEOD RCP * Kvng Lombardi - 08/20/2022 3:59 PM EDT AMV Protocol: Yes SBT Protocol: Yes SBT: Passed Vent Settings: Ventilator Mode: PS/CPAP PEEP Set: 8 FiO2: 21 % PSV: 10 Ventilator Measurements: Resp: 25 Vt Spontaneous: 400 Ve: 10.2 SpO2: 96 % EtCO2: 33 mmHg Airway: 7.0 @ 23 cm at the Teeth. Skin Integrity: WDL Breath Sounds: Coarse Secretions: Copious, thin, white & clear Assessment / Events / Plan of the Day: Ms. Irving was received this morning on PS 10/8 30%. Titrated to 21% per SpO2. Patient remains intubated pending improvement in mental status. Kvng Lombardi * Neva Zhao MSW - 08/20/2022 11:35 AM EDT Social Work Response to Consult Consult: Nursing consult to Social Work Ordered at: 08/17/22 1023 Reason for Consult? finanacial concerns Social Work Response: JUVENILE JUSTICE SPECIALIST called Ishan's , Antonio, to offer support. There was no answer, so this proposal lead writer left voicemail with contact information. UPDATE: MACY received call back from Ishan's , Antonio, this afternoon. This JUVENILE JUSTICE SPECIALIST and Antonio plan to meet when he is at the hospital tomorrow to discuss his questions related to disability benefits. Follow Up Needed: Follow for SW support * Alfonso Blackwood MD - 08/20/2022 8:26 AM EDT Critical Care Medicine Staff Progress Note 62 y.o. female with h/o bipolar, DM, EtOH, esophagitis, who presented to [facility] 3 days ago after being found unresponsive at home. Patient found to have likely pneumonia +/- aspiration, newly reduced EF. 24 hr events/subjective: -on beta blockers -afebrile, high WBC -Secretions - moderate -I/Os positive last 24 hours -now following commands. -MRI results reviewed. ASSESSMENT, MANAGEMENT, and DECISION MAKING: Patient is a 62 yo female with h/o bipolar, EtOH who presented to [facility] 08/12 after being found unresponsive by . She was found to have pneumonia- possibilities include aspiration, viral vs. CAP.This is complicated by newly reduced EF. This could be c/w stress cardiomyopathy or NSTEMI. Now sheis slow to emerge from sedation and has increased secretions. This week has been complicated by persistent stupor that has slowly improved, and certainly not to her reported baseline of active with independent activities of daily living Neuro consult much appreciated, more awake but does not follow commands, will plan for MRI. Just not in a position to trial extubation given her neuro status. ID consult for persistent elevated WBC and fevers. Starting diuresis. PICC line, Enteral feeds underway. She needs to have a left heart cath when her acute issues are more resolved. PE Temp: [37.4 ??C (99.3 ??F)-38.2 ??C (100.8 ??F)] Heart Rate: [90-117] Resp: [18-33] BP: (91-130)/(47-76) SpO2: [92 %-100 %] Heart Rate from SpO2: -- Vent settings: PSV 8/5/30% Gen: intubated, not following commands CVS: reg rhythm, no murmurs Lungs: coarse Abd: soft, nontender Ext: warm without edema Skin: no rashes Labs Last 3 wbc, hgb, hct plt Recent Labs 08/20/22 0030 08/19/22 0120 08/18/22 0230 WBC 28.0* 28.3* 24.3* HGB 8.2* 8.7* 9.0* HCT 26.4* 27.9* 28.2* PLATELET 351 301 226 Last 3 Lytes Recent Labs 08/20/22 0030 08/19/22 1345 08/19/22 0120 NA 144 145 142 K 4.1 4.1 3.8 CL 107 106 108* CO2 28 29 25 BUN 21* 20* 18 CREATININE 0.55* 0.59* 0.50* Last 3 LFTs Recent Labs 08/15/22 0950 08/15/22 0305 AST 21 25 ALT 12 13 ALKPHOS 102 99 BILITOT <0.2* 0.2 BILIDIR 0.1 0.1 Last Ca, Mg, Phos Recent Labs 08/20/22 0030 CALCIUM 8.5 PHOS 1.7* MAGNESIUM 0.94 Last 3 Coags Recent Labs 08/15/22 0000 PT 22.3* INR 2.0 PTT 154* Last 3 ProBNP, Trop, CK Recent Labs 08/19/22 0120 08/14/22 2355 CK 32 -- PROBNP -- >35,000* ABG (Arterial Blood Gas) Lab Results Component Value Date pH Art 7.56 (H) 08/20/2022 pO2 Art 92 08/20/2022 pCO2 Art 31 (L) 08/20/2022 Studies CXR 08/16/2022 IMPRESSION PA catheter has a persistent loop near the tip, similar to the prior comparison study. Improved pulmonary edema. Head CT 08/16/2022 IMPRESSION No acute intracranial abnormality and no change from prior I/O overnight: I/O this shift: In: 114.6 [I.V.:24.6; NG/GT:90] Out: - Weight: Patient Vitals for the past 168 hrs: Weight 08/20/22 0233 72.3 kg (159 lb 6.3 oz) 08/19/22 0206 73.1 kg (161 lb 2.5 oz) 08/18/22 0400 69.7 kg (153 lb 10.6 oz) 08/17/22 0500 71.9 kg (158 lb 8 oz) 08/16/22 0400 73.8 kg (162 lb 11.2 oz) 08/15/22 0200 69.1 kg (152 lb 5.4 oz) 08/14/22 2322 69 kg (152 lb 1.9 oz) Micro: Recent Labs 08/15/22 1225 URINECULTURE 1,000-9,000 cfu/ml Insignificant growth Recent Labs 08/15/22 0740 08/19/22 1451 GRAMSTAIN Many Neutrophils Few squamous epithelial cells Rare mixed bacterial morphotypes suggestive of normal upper respiratory wiley Many Neutrophils seen Few squamous epithelial cells seen No microorganisms seen. LOWERRESPCX Rare normal upper respiratory wiley -- Recent Labs 08/14/22 2355 08/15/22 0110 BLOODCX No growth at 5 days. No growth at 5 days. Lab Results Component Value Date GRAMSTAIN 08/19/2022 Many Neutrophils seen Few squamous epithelial cells seen No microorganisms seen. ABG (Arterial Blood Gas) Lab Results Component Value Date pH Art 7.56 (H) 08/20/2022 pO2 Art 92 08/20/2022 pCO2 Art 31 (L) 08/20/2022 IS PATIENT CRITICALLY ILL ? Is there a high potential of sudden, clinically significant, or life threatening deterioration? Yes Is there a need for direct personal assessment and management to treat/prevent multiple vital organfailure/deterioration? Yes PATIENT IS CRITICALLY ILL WITH THESE DIAGNOSES BEING MANAGED BY [facility] TEAM: Congestive Heart Failure Systolic Acute Hypotension Arterial Intubated for airway protection secondary to hemodynamic instability, inability to protect airway Sepsis Severe w/ organ failure & septic shock Shock Cardiogenic Stupor ?? I personally performed 45 minutes of aggregate critical care time exclusive of procedures and teaching. This includes time during direct patient evaluation and reassessment, interpreting labs and studies, directing life and/or organ supporting organ interventions, and documentation on the unit. * Carlos Terry MD - 08/20/2022 8:10 AM EDT Images from the original note were not included. Cardiology ICU Progress Note ID: Ishan Irving is a 62 year old female with a medical history notable for recent L femoral neck fracture, bipolar disorder, resolving medication- induced Parkinsonism, insulin-dependent diabetes mellitus, hx of alcohol use disorder (reported to be in remission for 1.5 years) c/b chronic pancreatitis, iron deficiency anemia, GERD c/b esophagitis & Farrell's esophagus presenting in transfer from [facility], suspected to be in cardiogenic shock and found to be in mixed shock with concern for stress cardiomyopathy. 24 Hour Events/Subjective: Overnight: - NAEON. Vent settings PS 30% FiO2 20/12, ~400, though mildly tachypneic 23-28RR. Passed SBT. Last ABG 7.56/. Started metoprolol 12.5mg BID yesterday, tolerating well. This AM: - Resting comfortably in no apparent distress. Now tracking throughout room, responding to pain andintermittently squeezing hand to voice. Vasoactive & Sedating Medications: Infusions: Continuous Infusions: ??? tube feeding diet 45 mL/hr at 08/20/22 1000 ??? vasopressin Stopped (08/17/22 0849) ??? DOBUTamine Stopped (08/17/22 1430) ??? insulin regular human 3.25 Units/hr (08/20/22 1000) ??? fentaNYL Stopped (08/17/22 1356) ??? propofoL Stopped (08/17/22 1325) ??? NORepinephrine 0 mcg/min (08/19/22 1614) ??? EPINEPHrine Stopped (08/16/22 1230) Ventilator Settings: Mode: Servo U Ventilator Mode: PS/CPAP, SET RR: TV: PEEP: FiO2: VARIABLES Tidal Volume Set: 360 Set PEEP (cm H2O): 8 Set FiO2: 21 % PATIENT RR: PIP: Pplateau: SpO2: OUTPUT Resp: 22 Peak Inspiratory Pressure: 20 Plateau Pressure (cm H2O): 20 SpO2: 95 % ABG (Arterial Blood Gas) Recent Labs 08/20/22 0541 08/19/22 1445 08/19/22 0507 08/18/2261408/16/22200808/16/22 1759 PHART 7.56* -- 7.54* 7.51* 7.48* 7.53* [id number] 31* -- 31* 30* 34* 26* PO2ART 92 -- 73* 62* 78* 48* [id number] 27.3* -- 25.7 23.2 25.0 21.2 LACTATEVEN 1.6 1.6 1.2 1.6 1.5 1.3 [id number] 30 -- 30 30 30 21 PFRATIOART2 307 -- 243 207 260 229 VBG (Venous Blood Gas) Recent Labs 08/20/22 0541 08/19/22 1445 08/19/22 0507 08/18/2261408/16/222008 LACTATEVEN 1.6 1.6 1.2 1.6 1.5 Mixed Venous Sat Recent Labs 08/16/22 2012 08/16/22 1558 08/16/22 1211 08/16/22 1117 08/16/22 0948 [id number] 56.6 50.5 56.0 49.3 56.5 Objective: Vitals Last value Range last 24 hrs Temperature Temp: (!) 38 ??C (100.4 ??F) Temp: [37.4 ??C (99.3 ??F)-38.1 ??C (100.6 ??F)] Heart Rate Heart Rate: 82 Heart Rate: [82-117] Blood Pressure BP: 119/54 BP: (91-130)/(47-76) Art Line BP BP (Arterial Line): 124/70 BP (Arterial Line): (91-131)/(51-75) MAP (NBP): [57 mmHg-90 mmHg] Respiratory Rate Resp: 22 Resp: [18-30] SpO2 SpO2: 95 % SpO2: [92 %-100 %] Oxygen Delivery Oxygen Therapy O2 Device: Ventilator O2 Flow Rate (L/min): 21 L/min FiO2 (%): 30 % Reason for Oxygen: Acute clinical labored breathing Intake/Output Summary (Last 24 hours) at 08/20/2022 1206 Last data filed at 08/20/2022 1000 Gross per 24 hour Intake 1714.2 ml Output 1065 ml Net 649.2 ml Patient Vitals for the past 168 hrs: Weight 08/20/22 0233 72.3 kg (159 lb 6.3 oz) 08/19/22 0206 73.1 kg (161 lb 2.5 oz) 08/18/22 0400 69.7 kg (153 lb 10.6 oz) 08/17/22 0500 71.9 kg (158 lb 8 oz) 08/16/22 040 73.8 kg (162 lb 11.2 oz) 08/15/22 0200 69.1 kg (152 lb 5.4 oz) 08/14/22 2322 69 kg (152 lb 1.9 oz) Admit wt: 69 kg Physical Exam: Gen: Intubated, critically-ill appearing woman. CV: Tachycardic, no murmurs or gallops noted. Resp: Ventilated breath sounds with rhonchi bilaterally Abd: BS+, no rebound tenderness Ext: 2+ distal pulses, no pedal edema. Feet warm to touch. No erythema or swelling surrounding the left hip incision. No observable tenderness to deep palpation of the left hip. Neuro: RASS -2 Labs: Recent Labs 08/20/22 0030 08/19/22 0120 08/18/22 0230 08/17/22 0045 08/16/22 0336 WBC 28.0* 28.3* 24.3* 18.6* 29.8* HGB 8.2* 8.7* 9.0* 8.2* 9.3* HCT 26.4* 27.9* 28.2* 26.0* 29.8* PLATELET 351 301 226 176 295 MCV 64.7* 64.1* 64.2* 65.0* 64.4* Recent Labs 08/20/22 0030 08/19/22 1345 08/19/22 0120 08/18/22 0230 08/17/22 2129 08/17/22 1515 08/17/22 0045 08/16/22 0810 08/16/22 0336 NA 144 145 142 139 -- -- 136 < > 138 CL 107 106 108* 104 -- -- 101 < > 103 CO2 28 29 25 25 -- -- Not Perf < > 24 K 4.1 4.1 3.8 4.2 3.5 < > Not Perf 4.6 < > 4.1 MAGNESIUM 0.94 -- 0.83 1.02 -- -- 0.89 -- 0.99 PHOS 1.7* 2.9 1.4* 1.2* -- -- 2.2* -- 2.7 CALCIUM 8.5 8.6 8.4* 8.4* -- -- 8.3* < > 8.1* BUN 21* 20* 18 25* -- -- 36* < > 37* CREATININE 0.55* 0.59* 0.50* 0.67* -- -- 1.10 < > 1.42* < > = values in this interval not displayed. LFTs Recent Labs 08/15/22 0950 08/15/22 0305 PROT 5.6* 5.6* ALBUMIN 2.4* 2.4* AST 21 25 ALT 12 13 ALKPHOS 102 99 BILITOT <0.2* 0.2 BILIDIR 0.1 0.1 Coags Recent Labs 08/15/22 0000 INR 2.0 PT 22.3* PTT 154* Cardiac Enzymes Recent Labs 08/19/22 0120 08/14/22 2355 CK 32 -- PROBNP -- >35,000* Endocrine Recent Labs 08/15/22 0000 TSH 0.28 Recent Labs 08/20/22 1005 08/20/22 0726 08/20/22 0631 08/20/22 0429 08/20/22 0353 08/20/22 0205 08/20/22 0027 08/19/22 2334 08/19/22 2232 08/19/22 1908 08/19/22 1803 08/19/22 1708 POCGLU 196 233* 190 114 114 140 177 200* 200* 165 172 154 Heme No results for input(s): LDH, HAPTOGLOBIN, URICACID in the last 168 hours. ABG (Arterial Blood Gas) Recent Labs 08/20/22 0541 08/19/22 1445 08/19/22 0507 08/18/2215 08/16/22200808/16/22 1759 PHART 7.56* -- 7.54* 7.51* 7.48* 7.53* [id number] 31* -- 31* 30* 34* 26* PO2ART 92 -- 73* 62* 78* 48* [id number] 27.3* -- 25.7 23.2 25.0 21.2 LACTATEVEN 1.6 1.6 1.2 1.6 1.5 1.3 [id number] 30 -- 30 30 30 21 PFRATIOART2 307 -- 243 207 260 229 VBG (Venous Blood Gas) Recent Labs 08/20/22 0541 08/19/22 1445 08/19/22 0507 08/18/22 0615 08/16/222008 LACTATEVEN 1.6 1.6 1.2 1.6 1.5 Mixed Venous Sat Recent Labs 08/16/22201108/16/22 1558 08/16/22 1211 08/16/22 1117 08/16/22 0948 [id number] 56.6 50.5 56.0 49.3 56.5 Microbiology: 08/14, BCx NGTD 08/15, UCx growing 1-9k colonies. 08/15, sputum culture NGTD. 08/17, MRSA nares PCR negative. Negative legionella antigen. TTE: 08/15: Interpretation Summary -Left ventricle is mildly dilated. [...] on today's date, LVEF is slightly improved. ?? Imaging: CXR 08/16: PA catheter has a persistent loop near the tip, similar to the prior comparison study. Improved pulmonary edema. KUB 08/15: Nonspecific/nondiagnostic appearance of the abdomen, with large stool burden in the RIGHT hemiabdomen and pelvis. Assessment & Plan: Ms. Irving is a 62 year old female with a medical history notable for insulin-dependent diabetes mellitus, bipolar disorder, alcohol use disorder in remission, iron deficiency anemia, and recent L femoral neck fracture s/p surgical fixation presenting in transfer with acute hypoxic respiratory failure, pneumonia, and newfound heart failure. Remains improved from hemodynamic and respiratory perspectives, off pressors and on minimal ventilatory support. Making some progress with respect to mental status: patient intermittently responding to commands overnight and this morning, though still not awake enough for trial of extubation. Neurowork-up continued overnight, with MRI now complete and not concerning for acute process, inflammatory/infectious change, or hypoxic injury. Has had persistent leukocytosis (28) and low grade fever (100.6 overnight). Blood cultures were obtained yesterday, and she remains on zosyn. No clear potential sources identified. Low overall suspicion for MESSAGE CLERK infection given recent MRI and improvement in mental status. Will continue to monitor for mental status improvement today, as well as furosemide with goal net even and phosphorus repletion. Will eventually need LHC following extubation. Neuro: #Sedation/analgesia - Propofol & fentanyl - Normal CTH 08/18, EEG w/ generalized slowing. - MRI performed 08/19, unremarkable. Pulmonary: #Acute hypoxic respiratory failure #Bilateral airspace opacities/multifocal pneumonia - Mechanical ventilation, ARDSnet protocol - Antibiotics: zosyn. - Follow BCx. - Goal net even today, dosed 40mg IV lasix this AM. ?? Cardiac: #Distributive Shock #NSTEMI Type I vs Type II #HFrEF (EF 25%) #C/f Stress Cardiomyopathy - ASA 81mg - Therapeutic heparin converted to subQ prophylactic today. - Consider ischemic workup when more stable - Mg >1, K >4 ?? Renal/Fluids/Electrolytes: #MARILIN, resolved. - Likely in setting of low perfusion state, interventions to improve her perfusion as above - Trend BMP BID to assess renal function & electrolytes ?? GI: #GERD c/b Farrell's esophagus & esophagitis - Continue home PPI 40 qd ?? Endocrine: #Insulin-dependent diabetes - Insulin gtt ?? #Metabolic acidosis - Likely in setting of shock, will trend gas ?? Hematology/oncology: #Iron deficiency anemia - Consider iron supplementation once out of critical illness - Transfuse for Hb <8 ?? #Leukocytosis - Suspect 2/2 infection vs shock state vs steroid effect - Abx as below ?? Infectious disease: #Septic shock #Bilateral airspace opacities/multifocal pneumonia - Repeat blood cultures, UA, sputum cultures, follow. - Abx: Vancomycin & zosyn #Routine Diet: NPO diet (Give Meds) DVT prophylaxis: heparin gtt GI Prophylaxis: home PPI Code Status: Attempt Cardiopulmonary Resuscitation - Inpatient Alternative Medical Decision Maker: zac Avila MD Internal Medicine, PGY-1 Cardiology [facility] #[id number] Cardiology Staff Addendum ?? Ishan Irving??is a 62 y.o.??female??whom I saw today with Dr. Avila. ??I have personallyinterviewed and examined the patient and reviewed appropriate data, including labs, ECGs, and otherdiagnostic studies. I agree with the principal findings documented above, with additions and exceptions as below. ??The assessment and plan were formulated in discussion with me. ?? Hemodynamic and respiratory status remain markedly improved. Off pressors, on minimal vent settingsand passed SBT for past several days. However, after more than 24 hours off sedation, patient remains unresponsive. This is likely sedation related based on normal head CT and MRI, and EEG c/w toxic metabolic. Continuing broad spectrum antibiotics. Continue DAPT, now off heparin. For cath once extubated. ?? Carlos Terry MD, MARYAN, FACC, FACP, FASE Cardiovascular Medicine * Daryn Ghosh - 08/20/2022 2:33 AM EDT AMV Protocol: Yes SBT Protocol: Yes SBT: Passed Vent Settings: Ventilator Mode: PS/CPAP PEEP Set: 8 FiO2: 30 % PSV: 10 Ventilator Measurements: Resp: 26 Vt Spontaneous: 386 Ve: 10.6 SpO2: 99 % EtCO2: 34 mmHg Airway: 7.0 @ 23 cm at the Teeth. Skin Integrity: WDL Breath Sounds: diminished Secretions: small amount thin yellow Assessment / Events / Plan of the Day: received patient on PSV passed SBT intubated for airway protection Daryn Ghosh * Shashi Young - 08/19/2022 1:25 PM EDT Marketing Automation Analyst Encounter Note Patient Name: Ishan Irving : [id number] MR#: [id number] Admit Date: 08/14/2022 11:11 PM Hospital Day 5 days Narrative: Self initiated visit to patient for Spiritual support in a regular unit rounds. Assessment: Patient is very busy with nurses. Not a good time for It Quality Analyst visit. Intervention and Outcome: An attempted visit to patient. Patient is very busy with other caregivers. Not a good time for Spiritual support. Follow-up: Some other time. Time in Direct Care: Shashi Young 08/19/2022 * Neva Zhao MSW - 08/19/2022 12:17 PM EDT Social Work Response to Consult Consult: Nursing consult to Social Work Ordered at: 08/17/22 1023 Reason for Consult? finanacial concerns Social Work Response: JUVENILE JUSTICE SPECIALIST attempted to contact Ishan's , Antonio, to offer support. No one picked up, so JUVENILE JUSTICE SPECIALIST left message with contact information. Follow Up Needed: Follow for continued support. * Neva Erazo PT - 08/19/2022 11:37 AM EDT PT Note Pt remains intubated and not yet approp for PT evaluation. Will follow-up when approp. Neva Erazo PT Pager [phone] * Adeola Russo RCP - 08/19/2022 9:19 AM EDT AMV Protocol: Yes SBT Protocol: Yes Vent Settings: Ventilator Mode: PS/CPAP PEEP Set: 8 FiO2: 30 % PSV: 10 Ventilator Measurements: Resp: 25 Vt Spontaneous: 413 Ve: 9.2 SpO2: 99 % EtCO2: 33 mmHg Airway: 7.0 @ 23 cm at the Teeth. Skin Integrity: WDL Assessment / Events / Plan of the Day: Pt received on PSV 8/5 and 30% with RR in the low 30s. Throughout the day she required increase support due to pt agitation and biting ETT (bite block at bedside). Moderate amounts of thin secretions produced with strong cough also noted. She is now resting comfortably in above noted settings-wean as tolerated. Extubation pending mental status. Adeola Russo RCP * Nancy Ernst, RD - 08/19/2022 8:33 AM EDT Nutrition Progress Note Ishan Irving is a 62 y.o.??female??with h/o bipolar, DM, EtOH, esophagitis, who presented to [facility] 3 days ago after being found unresponsive at home.?Patient found to have likely pneumonia +/- aspiration, newly reduced EF. Reason for Assessment: ICU Tube Feeding, Follow-up Nutrition Recommendations: Enteral Nutrition: Peptamen AF with a goal rate of 45 ml per hour plus 2 scoop(s) of protein powder daily. This rate is calculated to compensate for unplanned time off feedings due to potential procedures, etc. At goal, this will provide: Peptamen AF Total Volume Per Day: 900 mL Scoops of Protein: 2 Calories per Day: 1130 Protein per Day: 80 g Free Water mL per Day: 831 % RDI: 72 % Continue MVI w/ minerals as EN meets <85% of RDI Monitor hydration status on above EN as they are concentrated. Pt may need additional 1731ml of fluids depending on IVFs, med flushes, p.o. Intake, etc. ?? Consider 2x 200ml FWB QID to provide 1600ml Liquid tylenol contains sugar alcohol(s) (sorbitol) that acts as a purgative. If stool output is excessive, consider switching to crushed tablet form. Monitor BM. Goal of one every 24-48hrs while on EN Monitor lytes. Replete as indicated Replete Phos <2.0 I was able to discuss plan with provider [facility] [id number]. Current Nutrition Regimen: Active Orders Diet NPO diet (Give Meds) Frequency: Effective Now Number of Occurrences: Until Specified All Active TF Orders: Tubefeeding Orders (From admission, onward) Start Dose/Rate Route Frequency Ordered Stop 08/17/22 1730 tube feeding diet 900 mL 45 mL/hr Per NG tube CONTINUOUS 08/17/22 1641 Average tube feeding provision over past 2 days; 633mL vs daily goal volume of 900 formula (70% of goal) Average protein powder provision over the past 2 days; 2 scoops vs daily goal of 2 scoops (100% of goal) Tolerance or barriers to meeting needs: tolerating at goal so far Assessment: Lab Results Component Value Date NA 142 08/19/2022 K 3.8 08/19/2022 CL 108 (H) 08/19/2022 CO2 25 08/19/2022 BUN 18 08/19/2022 CREATININE 0.50 (L) 08/19/2022 ESTGFR 106 08/19/2022 MAGNESIUM 0.83 08/19/2022 CALCIUM 8.4 (L) 08/19/2022 PHOS 1.4 (CRIT) 08/19/2022 AST 21 08/15/2022 ALT 12 08/15/2022 ALKPHOS 102 08/15/2022 BILITOT <0.2 (L) 08/15/2022 BILIDIR 0.1 08/15/2022 HA1C 6.2 (H) 08/15/2022 Lab Results Component Value Date POCGLU 229 (H) 08/19/2022 POCGLU 215 (H) 08/19/2022 POCGLU 176 08/19/2022 POCGLU 169 08/19/2022 POCGLU 171 08/18/2022 POCGLU 148 08/18/2022 POCGLU 144 08/18/2022 POCGLU 175 08/18/2022 POCGLU 166 08/18/2022 POCGLU 207 (H) 08/18/2022 POCGLU 194 08/18/2022 POCGLU 174 08/18/2022 Patient Lines/Drains/Airways Status Active Nutritional LDAs Name Placement date Placement time Site Days Naso/Oral Tube 08/17/22 1142 small bore weighted ([place]) right nostril 08/17/22 1142 right nostril 2 Peripheral IV Line - Single Lumen 08/14/22 median vein (underside of arm), left 08/14/22 -- -- 5 Peripheral IV Line - Single Lumen 08/14/22 dorsal arch vein (top of hand), left 20 gauge 08/14/22 -- -- 5 Peripheral IV Line - Single Lumen 08/14/22 metacarpal vein (top of hand), right 20 gauge 08/14/22 -- -- 5 Percutaneous Central Line - Single Lumen 08/15/22 0018 internal jugular vein, right 08/15/22 0018 -- 4 Urethral Catheter 08/15/22135 100% silicone 14 10 10 08/15/22 0136 -- 4 Physical Findings Gastrointestinal: feeding tube Tubes: nasogastric tube Oxygen Therapy / Airway Device: Ventilator Shift Pressure Injury Prevention Occiput: No Injury Thoracic Spine: No Injury Sacral: No Injury Ischial - left: No Injury Ischial - right: No Injury Heel - left: No Injury Heel - right: No Injury Elbow - left: No Injury Elbow - right: No Injury Device Sites: O2 sat monitor, ETT, NGT, A line sites - tubing, A line Board, wrist restraints, IV sites, mcrae, ECG Leads, BP Cuff Last Bowel Movement: 08/18/22 Intake/Output Summary (Last 24 hours) at 08/19/2022 0833 Last data filed at 08/19/2022 0600 Gross per 24 hour Intake 2496.23 ml Output 785 ml Net 1711.23 ml Relevant medications: liquid tylenol, folic acid, lasix, lispro, protonix, Thera M, miralax, KPhos 15mmol (repletion), pericolace, thiamine, levo (stopped), propofol (stopped), vaso (stopped), insulin gtt Anthropometrics: Admit Weight: 69 kg Estimated body mass index is 31.47 kg/m?? as calculated from the following: Height as of this encounter: 152.4 cm (5'). Weight as of this encounter: 73.1 kg (161 lb 2.5 oz). [place] Body Weight (IBW) (kg): 45.45 Wt Readings from Last 10 Encounters: 08/19/22 73.1 kg (161 lb 2.5 oz) 07/03/22 69.9 kg (154 lb) 03/31/22 74.4 kg (164 lb) 02/12/22 78.7 kg (173 lb 9.6 oz) 09/23/21 78.5 kg (173 lb) 03/01/20 79.4 kg (175 lb) 11/22/18 80.3 kg (177 lb) 12/13/14 86.5 kg (190 lb 12.8 oz) 03/20/14 94 kg (207 lb 3.7 oz) 03/15/13 87.1 kg (192 lb) Patient Vitals for the past 168 hrs: Weight 08/19/22 0206 73.1 kg (161 lb 2.5 oz) 08/18/22 0400 69.7 kg (153 lb 10.6 oz) 08/17/22 0500 71.9 kg (158 lb 8 oz) 08/16/22 0400 73.8 kg (162 lb 11.2 oz) 08/15/22 0200 69.1 kg (152 lb 5.4 oz) 08/14/22 2322 69 kg (152 lb 1.9 oz) Weight Source: Bed Estimated / Assessed Needs: Fluid Requirements (mL/day): 2562 mL Kcal / K.95 - 1136.25 Kcal (11 Kcal/Kg - 25 Kcal/Kg IBW) for first 7-10 day in the ICU Estimated Protein Needs: 68.18 - 90.9 g (1.5 g/Kg - 2.0 g/Kg IBW) Nutrition intake and intake history / interview: 08/18: Phos <2.0 since 08/18 w/ 60mmol of repletion since then, phos 1.4 this AM. EN advanced to goal this AM w/o signs of intolerance. Wt up 4kg since admission and intermittently receiving diuretics, -0.5L since admission 08/17: TF recs as above. Nutrition Focused Physical Exam: Not performed Malnutrition Diagnosis: Not identified (Andrea JPEN J Parenteral Enteral Nutr. 2012 September; 36(3): 273-52) Nutrition to continue to follow up while inpatient Nancy Ernst RD Pager #:[phone] * Carlos Terry MD - 08/19/2022 8:13 AM EDT Images from the original note were not included. Cardiology ICU Progress Note ID: Ishan Irving is a 62 year old female with a medical history notable for recent L femoral neck fracture, bipolar disorder, resolving medication- induced Parkinsonism, insulin-dependent diabetes mellitus, hx of alcohol use disorder (reported to be in remission for 1.5 years) c/b chronic pancreatitis, iron deficiency anemia, GERD c/b esophagitis & Farrell's esophagus presenting in transfer from [facility], suspected to be in cardiogenic shock and found to be in mixed shock with concern for stress cardiomyopathy. 24 Hour Events/Subjective: Overnight: - NAEON. Vent settings PS 30% FiO2 13/8, 376Tv, though mildly tachypneic 23- 28RR. Passed SBT. Last ABG 7.54. Started metoprolol 12.5mg BID, tolerating well. This AM: - Resting comfortably in no apparent distress. Now opening eyes to voice but no purposeful movements to command. Vasoactive & Sedating Medications: Infusions: Continuous Infusions: ??? tube feeding diet 45 mL/hr at 08/19/22 0600 ??? vasopressin Stopped (08/17/22 0849) ??? DOBUTamine Stopped (08/17/22 1430) ??? insulin regular human 3 Units/hr (08/19/22 0758) ??? fentaNYL Stopped (08/17/22 1356) ??? propofoL Stopped (08/17/22 1325) ??? NORepinephrine Stopped (08/17/22 0500) ??? EPINEPHrine Stopped (08/16/22 1230) Ventilator Settings: Mode: Servo U Ventilator Mode: PS/CPAP, SET RR: TV: PEEP: FiO2: VARIABLES Tidal Volume Set: 360 Set PEEP (cm H2O): 5 Set FiO2: 30 % PATIENT RR: PIP: Pplateau: SpO2: OUTPUT Resp: 29 Peak Inspiratory Pressure: 15 Plateau Pressure (cm H2O): 20 SpO2: 98 % ABG (Arterial Blood Gas) Recent Labs 08/19/22 0507 08/18/22 0608/16/22200808/16/22175808/16/22 1602 PHART 7.54* 7.51* 7.48* 7.53* 7.53* [id number] 31* 30* 34* 26* 30* PO2ART 73* 62* 78* 48* 55* [id number] 25.7 23.2 25.0 21.2 24.9 LACTATEVEN 1.2 1.6 1.5 1.3 1.5 [id number] 30 30 30 21 21 PFRATIOART2 243 207 260 229 262 VBG (Venous Blood Gas) Recent Labs 08/19/22 05008/18/2261408/16/22200808/16/22175808/16/22 1602 LACTATEVEN 1.2 1.6 1.5 1.3 1.5 Mixed Venous Sat Recent Labs 08/16/22201108/16/22 1558 08/16/22 1211 08/16/22 1117 08/16/22 0948 [id number] 56.6 50.5 56.0 49.3 56.5 Objective: Vitals Last value Range last 24 hrs Temperature Temp: 37.8 ??C (100 ??F) Temp: [37.4 ??C (99.3 ??F)-37.9 ??C (100.2 ??F)] Heart Rate Heart Rate: (!) 114 Heart Rate: [82-118] Blood Pressure BP: 110/57 BP: (110)/(57) Art Line BP BP (Arterial Line): 134/70 BP (Arterial Line): (102-148)/(50-70) MAP (NBP): -- Respiratory Rate Resp: 29 Resp: [21-29] SpO2 SpO2: 98 % SpO2: [96 %-100 %] Oxygen Delivery Oxygen Therapy O2 Device: Ventilator O2 Flow Rate (L/min): 21 L/min FiO2 (%): 30 % Reason for Oxygen: Titration down from previous higher respiratory or O2 need (pt intubated) Intake/Output Summary (Last 24 hours) at 08/19/2022 0813 Last data filed at 08/19/2022 0600 Gross per 24 hour Intake 2496.23 ml Output 785 ml Net 1711.23 ml Patient Vitals for the past 168 hrs: Weight 08/19/22 0206 73.1 kg (161 lb 2.5 oz) 08/18/22 0400 69.7 kg (153 lb 10.6 oz) 08/17/22 0500 71.9 kg (158 lb 8 oz) 08/16/22 0400 73.8 kg (162 lb 11.2 oz) 08/15/22 0200 69.1 kg (152 lb 5.4 oz) 08/14/22 2322 69 kg (152 lb 1.9 oz) Admit wt: 69 kg Physical Exam: Gen: Intubated, critically-ill appearing woman. CV: Tachycardic, no murmurs or gallops noted. Resp: Ventilated breath sounds with rhonchi bilaterally Abd: BS+, no rebound tenderness Ext: 2+ distal pulses, no pedal edema. Feet warm to touch. No erythema or swelling surrounding the left hip incision. No observable tenderness to deep palpation of the left hip. Neuro: RASS -3 Labs: Recent Labs 08/19/22 0120 08/18/22 0230 08/17/22 0045 08/16/22 0336 08/15/22 0305 WBC 28.3* 24.3* 18.6* 29.8* 39.8* HGB 8.7* 9.0* 8.2* 9.3* 10.2* HCT 27.9* 28.2* 26.0* 29.8* 34.4* PLATELET 301 226 176 295 350 MCV 64.1* 64.2* 65.0* 64.4* 67.7* Recent Labs 08/19/22 0120 08/18/22 0230 08/17/22 2129 08/17/22 1515 08/17/22 0045 08/16/22 1800 08/16/22 0810 08/16/22 0336 08/15/22 0950 08/15/22 0305 NA 142 139 -- -- 136 136 -- 138 < > 140 CL 108* 104 -- -- 101 100 -- 103 < > 104 CO2 25 25 -- -- Not Perf 24 -- 24 < > Not Perf K 3.8 4.2 3.5 3.6 Not Perf 4.6 4.4 < > 4.1 < > 3.7 MAGNESIUM 0.83 1.02 -- -- 0.89 -- -- 0.99 -- 0.90 PHOS 1.4* 1.2* -- -- 2.2* -- -- 2.7 -- 5.3* CALCIUM 8.4* 8.4* -- -- 8.3* 8.4* -- 8.1* < > 8.3* BUN 18 25* -- -- 36* 37* -- 37* < > 38* CREATININE 0.50* 0.67* -- -- 1.10 1.15 -- 1.42* < > 1.42* < > = values in this interval not displayed. LFTs Recent Labs 08/15/22 0950 08/15/22 0305 PROT 5.6* 5.6* ALBUMIN 2.4* 2.4* AST 21 25 ALT 12 13 ALKPHOS 102 99 BILITOT <0.2* 0.2 BILIDIR 0.1 0.1 Coags Recent Labs 08/15/22 0000 INR 2.0 PT 22.3* PTT 154* Cardiac Enzymes Recent Labs 08/14/22 2355 PROBNP >35,000* Endocrine Recent Labs 08/15/22 0000 TSH 0.28 Recent Labs 08/19/22 0757 08/19/22 0658 08/19/22 0308 08/19/22 0119 08/18/22 2303 08/18/22 2105 08/18/22 1951 08/18/22 1831 08/18/22 1656 08/18/22 1535 08/18/22 1438 08/18/22 1353 POCGLU 229* 215* 176 169 171 148 144 175 166 207* 194 174 Heme No results for input(s): LDH, HAPTOGLOBIN, URICACID in the last 168 hours. ABG (Arterial Blood Gas) Recent Labs 08/19/22 0507 08/18/22 0615 08/16/22 2009 08/16/22 1759 08/16/22 1602 PHART 7.54* 7.51* 7.48* 7.53* 7.53* [id number] 31* 30* 34* 26* 30* PO2ART 73* 62* 78* 48* 55* [id number] 25.7 23.2 25.0 21.2 24.9 LACTATEVEN 1.2 1.6 1.5 1.3 1.5 [id number] 30 30 30 21 21 PFRATIOART2 243 207 260 229 262 VBG (Venous Blood Gas) Recent Labs 08/19/22 0507 08/18/22 0615 08/16/22200808/16/22 1759 08/16/22 1602 LACTATEVEN 1.2 1.6 1.5 1.3 1.5 Mixed Venous Sat Recent Labs 08/16/22201108/16/22 1558 08/16/22 1211 08/16/22 1117 08/16/22 0948 [id number] 56.6 50.5 56.0 49.3 56.5 Microbiology: 08/14, BCx NGTD 08/15, UCx growing 1-9k colonies. 08/15, sputum culture NGTD. 08/17, MRSA nares PCR negative. Negative legionella antigen. TTE: 08/15: Interpretation Summary -Left ventricle is mildly dilated. [...] on today's date, LVEF is slightly improved. ?? Imaging: CXR 08/16: PA catheter has a persistent loop near the tip, similar to the prior comparison study. Improved pulmonary edema. KUB 08/15: Nonspecific/nondiagnostic appearance of the abdomen, with large stool burden in the RIGHT hemiabdomen and pelvis. Assessment & Plan: Ms. Irving is a 62 year old female with a medical history notable for insulin-dependent diabetes mellitus, bipolar disorder, alcohol use disorder in remission, iron deficiency anemia, and recent L femoral neck fracture s/p surgical fixation presenting in transfer with acute hypoxic respiratory failure, pneumonia, and newfound heart failure. Remains stable from hemodynamic perspective, off dobutamine/pressors and with [place] now removed. Still intubated with minimal support, but unfortunately mental status continues to preclude extubation despite sedation now being held for 48 hours. Neurology was consulted yesterday given continued altered mental status, and recommended CTH/EEG. CT Head was unremarkable, and EEG demonstrated findings consistent with toxic metabolic encephalopathy. Will reach out to neurology today regarding possibleneed for MRI vs. MESSAGE CLERK infection workup. Will diurese given net positivity +1.7L in last 24 hours. Neuro: #Sedation/analgesia - Propofol & fentanyl - Normal CTH 08/18, EEG w/ generalized slowing. Pulmonary: #Acute hypoxic respiratory failure #Bilateral airspace opacities/multifocal pneumonia - Mechanical ventilation, ARDSnet protocol - Antibiotics: Vancomycin & zosyn; pending MRSA swab, discontinue vancomycin - Goal net negative 1L today, dosed 80mg IV lasix this AM. ?? Cardiac: #Distributive Shock #NSTEMI Type I vs Type II #HFrEF (EF 25%) #C/f Stress Cardiomyopathy - ASA 81mg - Therapeutic heparin converted to subQ prophylactic today. - Consider ischemic workup when more stable - Mg >1, K >4 ?? Renal/Fluids/Electrolytes: #MARILIN, resolved. - Likely in setting of low perfusion state, interventions to improve her perfusion as above - Trend BMP BID to assess renal function & electrolytes ?? GI: #GERD c/b Farrell's esophagus & esophagitis - Continue home PPI 40 qd ?? Endocrine: #Insulin-dependent diabetes - Insulin gtt ?? #Metabolic acidosis - Likely in setting of shock, will trend gas ?? Hematology/oncology: #Iron deficiency anemia - Consider iron supplementation once out of critical illness - Transfuse for Hb <8 ?? #Leukocytosis - Suspect 2/2 infection vs shock state vs steroid effect - Abx as below ?? Infectious disease: #Septic shock #Bilateral airspace opacities/multifocal pneumonia - Repeat blood cultures, UA, sputum cultures, follow. - Abx: Vancomycin & zosyn #Routine Diet: NPO diet (Give Meds) DVT prophylaxis: heparin gtt GI Prophylaxis: home PPI Code Status: Attempt Cardiopulmonary Resuscitation - Inpatient Alternative Medical Decision Maker: zac Avila MD Internal Medicine, PGY-1 Cardiology [facility] #[id number] Cardiology Staff Addendum ?? Ishan Irving is a 62 y.o. female whom I saw today with Dr. Avila. ??I have personally interviewed and examined the patient and reviewed appropriate data, including labs, ECGs, and other diagnostic studies. I agree with the principal findings documented above, with additions and exceptions as below. ??The assessment and plan were formulated in discussion with me. ?? Hemodynamic and respiratory status remain markedly improved. Off pressors, on minimal vent settingsand passed SBT yesterday morning. However, after more than 24 hours off sedation, patient remains unresponsive. This is likely sedation related based on normal head CT and EEG c/w toxic metabolic. Continuing broad spectrum antibiotics. Limited TTE for LVEF. Continue DAPT, now off heparin. For cath once extubated. ?? Carlos Terry MD, MARYAN, FACC, FACP, FASE Cardiovascular Medicine * Alfonso Blackwood MD - 08/19/2022 8:13 AM EDT Critical Care Medicine Staff Progress Note 62 y.o. female with h/o bipolar, DM, EtOH, esophagitis, who presented to [facility] 3 days ago after being found unresponsive at home. Patient found to have likely pneumonia +/- aspiration, newly reduced EF. 24 hr events/subjective: -on beta blockers -afebrile, high WBC -Secretions - moderate -I/Os positive last 24 hours -still not following commands. ASSESSMENT, MANAGEMENT, and DECISION MAKING: Patient is a 62 yo female with h/o bipolar, EtOH who presented to [facility] 08/12 after being found unresponsive by . She was found to have pneumonia- possibilities include aspiration, viral vs. CAP.This is complicated by newly reduced EF. This could be c/w stress cardiomyopathy or NSTEMI. Now sheis slow to emerge from sedation and has increased secretions. Neuro consult much appreciated, more awake but does not follow commands, will plan for MRI. Just not in a position to trial extubation given her neuro status. Stop the vanco; adding azithromycin for atypicals and urine for legionella negative. Continue pip/tazo She is now off pressors & inotropes, PA line removed yesterday. Remove central line today. Starting diuresis. Plan for PICC line, Enteral feeds underway. She needs to have a left heart cath when her acute issues are more resolved. PE Temp: [37.4 ??C (99.3 ??F)-37.9 ??C (100.2 ??F)] Heart Rate: [82-118] Resp: [21-29] BP: (110)/(57) SpO2: [96 %-100 %] Heart Rate from SpO2: -- Vent settings: PSV 8/5/30% Gen: intubated, not following commands CVS: reg rhythm, no murmurs Lungs: coarse Abd: soft, nontender Ext: warm without edema Skin: no rashes Labs Last 3 wbc, hgb, hct plt Recent Labs 08/19/22 0120 08/18/22 0230 08/17/22 0045 WBC 28.3* 24.3* 18.6* HGB 8.7* 9.0* 8.2* HCT 27.9* 28.2* 26.0* PLATELET 301 226 176 Last 3 Lytes Recent Labs 08/19/22 0120 08/18/22 0230 08/17/22 2129 08/17/22 1515 08/17/22 0045 NA 142 139 -- -- 136 K 3.8 4.2 3.5 < > Not Perf 4.6 CL 108* 104 -- -- 101 CO2 25 25 -- -- Not Perf BUN 18 25* -- -- 36* CREATININE 0.50* 0.67* -- -- 1.10 < > = values in this interval not displayed. Last 3 LFTs Recent Labs 08/15/22 0950 08/15/22 0305 AST 21 25 ALT 12 13 ALKPHOS 102 99 BILITOT <0.2* 0.2 BILIDIR 0.1 0.1 Last Ca, Mg, Phos Recent Labs 08/19/22 0120 CALCIUM 8.4* PHOS 1.4* MAGNESIUM 0.83 Last 3 Coags Recent Labs 08/15/22 0000 PT 22.3* INR 2.0 PTT 154* Last 3 ProBNP, Trop, CK Recent Labs 04/07/23 2355 PROBNP >35,000* ABG (Arterial Blood Gas) Lab Results Component Value Date pH Art 7.54 (H) 08/19/2022 pO2 Art 73 (L) 08/19/2022 pCO2 Art 31 (L) 08/19/2022 Studies CXR 08/16/2022 IMPRESSION PA catheter has a persistent loop near the tip, similar to the prior comparison study. Improved pulmonary edema. Head CT 08/16/2022 IMPRESSION No acute intracranial abnormality and no change from prior I/O overnight: No intake/output data recorded. Weight: Patient Vitals for the past 168 hrs: Weight 08/19/22 0206 73.1 kg (161 lb 2.5 oz) 08/18/22 0400 69.7 kg (153 lb 10.6 oz) 08/17/22 0500 71.9 kg (158 lb 8 oz) 08/16/22 0400 73.8 kg (162 lb 11.2 oz) 08/15/22 0200 69.1 kg (152 lb 5.4 oz) 08/14/22 2322 69 kg (152 lb 1.9 oz) Micro: Recent Labs 08/15/22 1225 URINECULTURE 1,000-9,000 cfu/ml Insignificant growth Recent Labs 08/15/22 0740 GRAMSTAIN Many Neutrophils Few squamous epithelial cells Rare mixed bacterial morphotypes suggestive of normal upper respiratory wiley LOWERRESPCX Rare normal upper respiratory wiley Recent Labs 08/14/22 2355 08/15/22 0110 BLOODCX No growth at 4 days. No growth at 4 days. Lab Results Component Value Date GRAMSTAIN 08/15/2022 Many Neutrophils Few squamous epithelial cells Rare mixed bacterial morphotypes suggestive of normal upper respiratory wiley ABG (Arterial Blood Gas) Lab Results Component Value Date pH Art 7.54 (H) 08/19/2022 pO2 Art 73 (L) 08/19/2022 pCO2 Art 31 (L) 08/19/2022 IS PATIENT CRITICALLY ILL ? Is there a high potential of sudden, clinically significant, or life threatening deterioration? Yes Is there a need for direct personal assessment and management to treat/prevent multiple vital organfailure/deterioration? Yes PATIENT IS CRITICALLY ILL WITH THESE DIAGNOSES BEING MANAGED BY CCS TEAM: Congestive Heart Failure Systolic Acute Hypotension Arterial Intubated for airway protection secondary to hemodynamic instability, inability to protect airway Sepsis Severe w/ organ failure & septic shock Shock Cardiogenic Stupor ?? I personally performed 45 minutes of aggregate critical care time exclusive of procedures and teaching. This includes time during direct patient evaluation and reassessment, interpreting labs and studies, directing life and/or organ supporting organ interventions, and documentation on the unit. * Daryn Ghosh - 08/19/2022 2:54 AM EDT AMV Protocol: Yes SBT Protocol: Yes SBT: Passed Vent Settings: Ventilator Mode: PS/CPAP PEEP Set: 5 FiO2: 30 % PSV: 8 Ventilator Measurements: Resp: 25 Vt Spontaneous: 350 Ve: 7.3 SpO2: 96 % EtCO2: 31 mmHg Airway: 7.0 @ 21 cm at the Teeth. Skin Integrity: WDL Breath Sounds: coarse Secretions: small amount thin yellow Assessment / Events / Plan of the Day: received patient on PSV passed SBT intubated for airway protection Daryn Ghosh * Alfonso Blackwood MD - 08/18/2022 9:43 AM EDT Critical Care Medicine Staff Progress Note 62 y.o. female with h/o bipolar, DM, EtOH, esophagitis, who presented to [facility] 3 days ago after being found unresponsive at home. Patient found to have likely pneumonia +/- aspiration, newly reduced EF. 24 hr events/subjective: -Not waking up off sedation for 24 hours. -PSV vent mode this AM & passed SBT again this am. -Insulin drip -Secretions - large amounts overnight -Increased WBC 24 today. -plts back up today. ASSESSMENT, MANAGEMENT, and DECISION MAKING: Patient is a 62 yo female with h/o bipolar, EtOH who presented to [facility] 08/12 after being found unresponsive by . She was found to have pneumonia- possibilities include aspiration, viral vs. CAP.This is complicated by newly reduced EF. This could be c/w stress cardiomyopathy or NSTEMI. Now show is slow to emerge from sedation and has increased secretions. Neuro consult, check EEG today, plan for a repeat head CT Stop the vanco; adding azithromycin for atypicals and checking a urine for legionella. Continue pip/tazo She is now off pressors & inotropes, will look to remove PA line today. Enteral feeds underway. She needs to have a left heart cath when her acute issues are more resolved. PE Temp: [36.3 ??C (97.3 ??F)-37.6 ??C (99.7 ??F)] Heart Rate: [84-117] Resp: [10-28] BP: (113)/(62) SpO2: [93 %-100 %] Heart Rate from SpO2: [84 bpm-108 bpm] Vent settings: PSV 8/5/30% PAP: 31/19 CI 2.0 CVP 6 Gen: intubated, not following commands CVS: reg rhythm, no murmurs Lungs: coarse Abd: soft, nontender Ext: warm without edema Skin: no rashes Labs Last 3 wbc, hgb, hct plt Recent Labs 08/18/22 0230 08/17/22 0045 08/16/22 0336 WBC 24.3* 18.6* 29.8* HGB 9.0* 8.2* 9.3* HCT 28.2* 26.0* 29.8* PLATELET 226 176 295 Last 3 Lytes Recent Labs 08/18/22 0230 08/17/22 2129 08/17/22 1515 08/17/22 0045 08/16/22 1800 NA 139 -- -- 136 136 K 4.2 3.5 3.6 Not Perf 4.6 4.4 CL 104 -- -- 101 100 CO2 25 -- -- Not Perf 24 BUN 25* -- -- 36* 37* CREATININE 0.67* -- -- 1.10 1.15 Last 3 LFTs Recent Labs 08/15/22 0950 08/15/22 0305 AST 21 25 ALT 12 13 ALKPHOS 102 99 BILITOT <0.2* 0.2 BILIDIR 0.1 0.1 Last Ca, Mg, Phos Recent Labs 08/18/22 0230 CALCIUM 8.4* PHOS 1.2* MAGNESIUM 1.02 Last 3 Coags Recent Labs 08/15/22 0000 PT 22.3* INR 2.0 PTT 154* Last 3 ProBNP, Trop, CK Recent Labs 08/14/225 PROBNP >35,000* ABG (Arterial Blood Gas) Lab Results Component Value Date pH Art 7.51 (H) 08/18/2022 pO2 Art 62 (L) 08/18/2022 pCO2 Art 30 (L) 08/18/2022 Studies CXR 08/16/2022 IMPRESSION PA catheter has a persistent loop near the tip, similar to the prior comparison study. Improved pulmonary edema. Head CT 08/16/2022 IMPRESSION No acute intracranial abnormality and no change from prior I/O overnight: I/O this shift: In: 44.7 [I.V.:44.7] Out: 80 [Urine:80] Weight: Patient Vitals for the past 168 hrs: Weight 08/18/22 0400 69.7 kg (153 lb 10.6 oz) 08/17/22 0500 71.9 kg (158 lb 8 oz) 08/16/22 0400 73.8 kg (162 lb 11.2 oz) 08/15/22 0200 69.1 kg (152 lb 5.4 oz) 08/14/22 2322 69 kg (152 lb 1.9 oz) Micro: Recent Labs 08/15/22 1225 URINECULTURE 1,000-9,000 cfu/ml Insignificant growth Recent Labs 08/15/22 0740 GRAMSTAIN Many Neutrophils Few squamous epithelial cells Rare mixed bacterial morphotypes suggestive of normal upper respiratory wiley LOWERRESPCX Rare normal upper respiratory wiley Recent Labs 08/14/22 2355 08/15/22 0110 BLOODCX No growth at 3 days. No growth at 3 days. Lab Results Component Value Date GRAMSTAIN 08/15/2022 Many Neutrophils Few squamous epithelial cells Rare mixed bacterial morphotypes suggestive of normal upper respiratory wiley ABG (Arterial Blood Gas) Lab Results Component Value Date pH Art 7.51 (H) 08/18/2022 pO2 Art 62 (L) 08/18/2022 pCO2 Art 30 (L) 08/18/2022 PF 260 on 30% PSV 6/5 IS PATIENT CRITICALLY ILL ? Is there a high potential of sudden, clinically significant, or life threatening deterioration? Yes Is there a need for direct personal assessment and management to treat/prevent multiple vital organfailure/deterioration? Yes PATIENT IS CRITICALLY ILL WITH THESE DIAGNOSES BEING MANAGED BY CCS TEAM: Congestive Heart Failure Systolic Acute Hypotension Arterial Intubated for airway protection secondary to hemodynamic instability, inability to protect airway Sepsis Severe w/ organ failure & septic shock Shock Cardiogenic Stupor ?? I personally performed 35 minutes of aggregate critical care time exclusive of procedures and teaching. This includes time during direct patient evaluation and reassessment, interpreting labs and studies, directing life and/or organ supporting organ interventions, and documentation on the unit. * Carlos Terry MD - 08/18/2022 8:30 AM EDT Images from the original note were not included. Cardiology ICU Progress Note ID: Ishan Irving is a 62 year old female with a medical history notable for recent L femoral neck fracture, bipolar disorder, resolving medication- induced Parkinsonism, insulin-dependent diabetes mellitus, hx of alcohol use disorder (reported to be in remission for 1.5 years) c/b chronic pancreatitis, iron deficiency anemia, GERD c/b esophagitis & Farrell's esophagus presenting in transfer from [facility], suspected to be in cardiogenic shock and found to be in mixed shock with concern for stress cardiomyopathy. 24 Hour Events/Subjective: Overnight: - NAEON. Vent settings PS 30% FiO2 13/8, 376Tv, though mildly tachypneic 23- 28RR. Passed SVT. Cardiac numbers CI 2.8, SVR 1500, PA 31/15, 20 this AM off pressors and dobutamine. Sedation off. Last ABG 7.51/. This AM: - Resting comfortably in no apparent distress. Still not responding to commands. Vasoactive & Sedating Medications: Infusions: Continuous Infusions: ??? tube feeding diet Stopped (08/18/22 0400) ??? vasopressin Stopped (08/17/22 0849) ??? DOBUTamine Stopped (08/17/22 1430) ??? insulin regular human 1.5 Units/hr (08/18/22 0800) ??? fentaNYL Stopped (08/17/22 1356) ??? propofoL Stopped (08/17/22 1325) ??? NORepinephrine Stopped (08/17/22 0500) ??? EPINEPHrine Stopped (08/16/22 1230) Ventilator Settings: Mode: Servo U Ventilator Mode: PS/CPAP, SET RR: TV: PEEP: FiO2: VARIABLES Tidal Volume Set: 360 Set PEEP (cm H2O): 5 Set FiO2: 30 % PATIENT RR: PIP: Pplateau: SpO2: OUTPUT Resp: 22 Peak Inspiratory Pressure: 15 Plateau Pressure (cm H2O): 20 SpO2: 99 % ABG (Arterial Blood Gas) Recent Labs 08/18/22 0615 08/16/22200808/16/22175808/16/22 1602 08/16/22 1216 PHART 7.51* 7.48* 7.53* 7.53* 7.52* [id number] 30* 34* 26* 30* 30* PO2ART 62* 78* 48* 55* 59* [id number] 23.2 25.0 21.2 24.9 24.2 LACTATEVEN 1.6 1.5 1.3 1.5 1.8 [id number] 30 30 21 21 21 PFRATIOART2 207 260 229 262 281 VBG (Venous Blood Gas) Recent Labs 08/18/22 0615 08/16/22200808/16/22175808/16/22 1602 08/16/22 1216 LACTATEVEN 1.6 1.5 1.3 1.5 1.8 Mixed Venous Sat Recent Labs 08/16/22201108/16/22 1558 08/16/22 1211 08/16/22 1117 08/16/22 0948 [id number] 56.6 50.5 56.0 49.3 56.5 PA Catheter #'s PA Catheter PAP (mmHg): 31/15 (08/18/22799) PAP (mean): 20 (08/18/22799) PCWP (mmHg): 6 mmHg (08/16/222014) CO (l/min): 4.8 l/min (08/18/22430) CI (l/min/m2): 2.8 l/min/m2 (08/18/22430) SVR (dyne*sec)/cm2: 1481 (dyne*sec)/cm2 (08/18/22430) SVRI (dyne*sec)/cm2: 2474 (dyne*sec)/cm5 (08/18/22430) Stroke Volume (ml): 42.8 ml (08/18/22 0431) PVR (dyne*sec)/cm2: 215 (dyne*sec)/cm2 (08/16/222014) SVO2 (%): 56.6 % (08/16/222014) CVP (mmHg): 1 mmHg (08/18/22 0800) Objective: Vitals Last value Range last 24 hrs Temperature Temp: 37.5 ??C (99.5 ??F) Temp: [36.3 ??C (97.3 ??F)-37.6 ??C (99.7 ??F)] Heart Rate Heart Rate: 100 Heart Rate: [84-117] Blood Pressure BP: 113/62 BP: (113)/(62) Art Line BP BP (Arterial Line): 103/78 BP (Arterial Line): (101-154)/(49-79) MAP (NBP): [77 mmHg] Respiratory Rate Resp: 22 Resp: [10-28] SpO2 SpO2: 99 % SpO2: [93 %-100 %] Oxygen Delivery Oxygen Therapy O2 Device: Ventilator O2 Flow Rate (L/min): 21 L/min FiO2 (%): 30 % Reason for Oxygen: New documented hypoxia (patient intubated) Intake/Output Summary (Last 24 hours) at 08/18/2022 0942 Last data filed at 08/18/2022 0800 Gross per 24 hour Intake 1129.07 ml Output 2795 ml Net -1665.93 ml Patient Vitals for the past 168 hrs: Weight 08/18/22 0400 69.7 kg (153 lb 10.6 oz) 08/17/22 0500 71.9 kg (158 lb 8 oz) 08/16/22 0400 73.8 kg (162 lb 11.2 oz) 08/15/22 0200 69.1 kg (152 lb 5.4 oz) 08/14/22 2322 69 kg (152 lb 1.9 oz) Admit wt: 69 kg Physical Exam: Gen: Intubated, critically-ill appearing woman. CV: Tachycardic, no murmurs or gallops noted. Resp: Ventilated breath sounds with rhonchi bilaterally Abd: BS+, no rebound tenderness Ext: 2+ distal pulses, no pedal edema. Feet warm to touch. No erythema or swelling surrounding the left hip incision. No observable tenderness to deep palpation of the left hip. Neuro: RASS -5 Labs: Recent Labs 08/18/22 0230 08/17/22 0045 08/16/22 0336 08/15/22 0305 08/14/22 2355 WBC 24.3* 18.6* 29.8* 39.8* 36.7* HGB 9.0* 8.2* 9.3* 10.2* 10.7* HCT 28.2* 26.0* 29.8* 34.4* 35.9 PLATELET 226 176 295 350 370* MCV 64.2* 65.0* 64.4* 67.7* 68.0* Recent Labs 08/18/2222908/17/22212808/17/22 1515 08/17/22 0045 08/16/22 1800 08/16/22 0810 08/16/22 0336 08/15/22 2140 08/15/22 1620 08/15/22 0950 08/15/22 0305 08/14/22 2355 NA 139 -- -- 136 136 -- 138 -- 138 -- 140 141 CL 104 -- -- 101 100 -- 103 -- 103 -- 104 107 CO2 25 -- -- Not Perf 24 -- 24 -- Not Perf -- Not Perf 17* K 4.2 3.5 3.6 Not Perf 4.6 4.4 < > 4.1 < > 5.0 5.0 < > 3.7 4.0 MAGNESIUM 1.02 -- -- 0.89 -- -- 0.99 -- -- -- 0.90 0.97 PHOS 1.2* -- -- 2.2* -- -- 2.7 -- -- -- 5.3* 5.9* CALCIUM 8.4* -- -- 8.3* 8.4* -- 8.1* -- 8.4* -- 8.3* 8.5 BUN 25* -- -- 36* 37* -- 37* -- 39* -- 38* 36* CREATININE 0.67* -- -- 1.10 1.15 -- 1.42* -- 1.50* -- 1.42* 1.40* < > = values in this interval not displayed. LFTs Recent Labs 08/15/22 0950 08/15/22 0305 PROT 5.6* 5.6* ALBUMIN 2.4* 2.4* AST 21 25 ALT 12 13 ALKPHOS 102 99 BILITOT <0.2* 0.2 BILIDIR 0.1 0.1 Coags Recent Labs 08/15/22 0000 INR 2.0 PT 22.3* PTT 154* Cardiac Enzymes Recent Labs 08/14/22 2355 PROBNP >35,000* Endocrine Recent Labs 08/15/22 0000 TSH 0.28 Recent Labs 08/18/22 0736 08/18/22 0231 08/18/22 0115 08/17/22 2304 08/17/22 2006 08/17/22 1847 08/17/22 1742 08/17/22 1644 08/17/22 1510 08/17/22 1341 08/17/22 1131 08/17/22 0927 POCGLU 175 176 168 188 161 169 189 195 140 130 146 170 Heme No results for input(s): LDH, HAPTOGLOBIN, URICACID in the last 168 hours. ABG (Arterial Blood Gas) Recent Labs 08/18/22 0615 08/16/22200808/16/22175808/16/22 1602 08/16/22 1216 PHART 7.51* 7.48* 7.53* 7.53* 7.52* [id number] 30* 34* 26* 30* 30* PO2ART 62* 78* 48* 55* 59* [id number] 23.2 25.0 21.2 24.9 24.2 LACTATEVEN 1.6 1.5 1.3 1.5 1.8 [id number] 30 30 21 21 21 PFRATIOART2 207 260 229 262 281 VBG (Venous Blood Gas) Recent Labs 08/18/22 0615 08/16/22200808/16/22 17508/16/22 1602 08/16/22 1216 LACTATEVEN 1.6 1.5 1.3 1.5 1.8 Mixed Venous Sat Recent Labs 08/16/22201108/16/22 1558 08/16/22 1211 08/16/22 1117 08/16/22 0948 [id number] 56.6 50.5 56.0 49.3 56.5 Microbiology: 08/14, BCx NGTD 08/15, UCx growing 1-9k colonies. 08/15, sputum culture NGTD. 08/17, MRSA nares PCR negative. TTE: 08/15: Interpretation Summary -Left ventricle is mildly dilated. [...] on today's date, LVEF is slightly improved. ?? Imaging: CXR 08/16: PA catheter has a persistent loop near the tip, similar to the prior comparison study. Improved pulmonary edema. KUB 08/15: Nonspecific/nondiagnostic appearance of the abdomen, with large stool burden in the RIGHT hemiabdomen and pelvis. Assessment & Plan: Ms. Irving is a 62 year old female with a medical history notable for insulin-dependent diabetes mellitus, bipolar disorder, alcohol use disorder in remission, iron deficiency anemia, and recent L femoral neck fracture s/p surgical fixation presenting in transfer with acute hypoxic respiratory failure, pneumonia, and newfound heart failure. Off pressor/inotrope support today and thus will remove [place] catheter. She is also on minimal ventilator support. Unfortunately, she continues to be unresponsive despite holding sedation for over 24 hours at this time[address] Head was last performed 08/16 and was unremarkable. Reached out to neurology today who recommended CT Head and EEG today for further evaluation. Stopped vancomycin given negative MRSA nares PCR. Otherwise, continuing zosyn while running net even until extubation, contingent on mental status improvement. Cath to follow extubation. Neuro: #Sedation/analgesia - Propofol & fentanyl ?? #Hx of alcohol use disorder - Little clinical concern for current withdrawal, however on propofol so minimal/no risk of withdrawal ?? Pulmonary: #Acute hypoxic respiratory failure #Bilateral airspace opacities/multifocal pneumonia - Mechanical ventilation, ARDSnet protocol - Antibiotics: Vancomycin & zosyn; pending MRSA swab, discontinue vancomycin - Net even today. ?? Cardiac: #Distributive Shock #NSTEMI Type I vs Type II #HFrEF (EF 25%) #C/f Stress Cardiomyopathy - ASA 81mg - Therapeutic heparin converted to subQ prophylactic today. - Consider ischemic workup when more stable - Mg >1, K >4 ?? Renal/Fluids/Electrolytes: #MARILIN - Likely in setting of low perfusion state, interventions to improve her perfusion as above - Trend BMP BID to assess renal function & electrolytes ?? GI: #GERD c/b Farrell's esophagus & esophagitis - Continue home PPI 40 qd ?? Endocrine: #Insulin-dependent diabetes - Insulin gtt ?? #Metabolic acidosis - Likely in setting of shock, will trend gas ?? Hematology/oncology: #Iron deficiency anemia - Consider iron supplementation once out of critical illness - Transfuse for Hb <8 ?? #Leukocytosis - Suspect 2/2 infection vs shock state vs steroid effect - Abx as below ?? Infectious disease: #Septic shock #Bilateral airspace opacities/multifocal pneumonia - Repeat blood cultures, UA, sputum cultures, follow. - Abx: Vancomycin & zosyn #Routine Diet: NPO diet (Give Meds) DVT prophylaxis: heparin gtt GI Prophylaxis: home PPI Code Status: Attempt Cardiopulmonary Resuscitation - Inpatient Alternative Medical Decision Maker: zac Avila MD Internal Medicine, PGY-1 Cardiology [facility] #[id number] Cardiology Staff Addendum Ishan Irving is a 62 y.o. female whom I saw today with Dr. Avila. I have personally interviewed and examined the patient and reviewed appropriate data, including labs, ECGs, and other diagnostic studies. I agree with the principal findings documented above, with additions and exceptions as below. The assessment and plan were formulated in discussion with me. Hemodynamic and respiratory status remain markedly improved. Off pressors, on minimal vent settingsand passed SBT yesterday morning. However, after more than 24 hours off sedation, patient remains unresponsive. This is likely sedation related, but will perform head CT and EEG. Continuing broad spectrum antibiotics. Limited TTE for LVEF. Continue DAPT, now off heparin. For cath once extubated. Carlos Terry MD, MARYAN, FACC, FACP, FASE Cardiovascular Medicine * Ariadne Fuentes RCP - 08/18/2022 8:13 AM EDT AMV Protocol: Yes SBT Protocol: Yes SBT: Passed Vent Settings: Ventilator Mode: PS/CPAP PEEP Set: 5 FiO2: 30 % PSV: 8 Ventilator Measurements: Resp: 22 Vt Spontaneous: 368 Ve: 9.1 SpO2: 99 % EtCO2: 31 mmHg Airway: 7.0 @ 23 cm at the Teeth. Skin Integrity: WDL Breath Sounds: Coarse Rhonchi , clears Secretions: Moderate to large amounts of thin pale yellow secretions Assessment / Events / Plan of the Day: Pt received on documented vent settings on PS 8 PEEP 5 and 30% No vent changes made this shift she remains on PS 8/5 and 30 % FO2 Pt transported to CT scan no issues during transport Plan: Remains on mechanical ventilation for Airway protecting due to Current mental status Ariadne Fuentes RCP * Daryn Ghosh - 08/18/2022 2:40 AM EDT AMV Protocol: Yes SBT Protocol: Yes SBT: Passed Vent Settings: Ventilator Mode: PS/CPAP PEEP Set: 5 FiO2: 30 % PSV: 5 Ventilator Measurements: Resp: 22 Vt Spontaneous: 351 Ve: 8.4 SpO2: 97 % EtCO2: 31 mmHg Airway: 7.0 @ 23 cm at the teeth. Skin Integrity: WDL Breath Sounds: diminished Secretions: moderate amount thin yellow Assessment / Events / Plan of the Day: received patient on PSV placed on SBT and passed intubated for airway protection Daryn Ghosh * Nancy Ernst RD - 08/17/2022 3:22 PM EDT Nutrition Consult Note Ishan Irving is a 62 y.o.??female??with h/o bipolar, DM, EtOH, esophagitis, who presented to [facility] 3 days ago after being found unresponsive at home. Patient found to have likely pneumonia +/-aspiration, newly reduced EF. Reason for intervention: ICU Tube-feeding Nutrition Recommendations: Peptamen AF with a goal rate of 45 ml per hour plus 2 scoop(s) of protein powder daily. This rate is calculated to compensate for unplanned time off feedings due to potential procedures, etc. At goal, this will provide 900 ml formula, 1130 calories, 80 grams protein, 730 ml water from formula + 100 ml water from protein powder administration and 72% of RDI's for vitamins and minerals. Suggest MVI w/ minerals as EN will meet <85% of RDI - pended Liquid tylenol contains sugar alcohol(s) (sorbitol) that acts as a purgative. If stool output is excessive, consider switching to crushed tablet form. I was able to discuss plan with provider [facility] [id number]. All Active TF Orders: Tubefeeding Orders (From admission, onward) None Enteral access: DHT Oxygen Therapy/airway: O2 Device: Ventilator Lab Results Component Value Date NA 136 08/17/2022 K 4.6 08/17/2022 K Not Perf 08/17/2022 CL 101 08/17/2022 CO2 Not Perf 08/17/2022 BUN 36 (H) 08/17/2022 CREATININE 1.10 08/17/2022 ESTGFR 57 (L) 08/17/2022 MAGNESIUM 0.89 08/17/2022 CALCIUM 8.3 (L) 08/17/2022 PHOS 2.2 (L) 08/17/2022 AST 21 08/15/2022 ALT 12 08/15/2022 ALKPHOS 102 08/15/2022 BILITOT <0.2 (L) 08/15/2022 BILIDIR 0.1 08/15/2022 HA1C 6.2 (H) 08/15/2022 Lab Results Component Value Date POCGLU 140 08/17/2022 POCGLU 130 08/17/2022 POCGLU 146 08/17/2022 POCGLU 170 08/17/2022 POCGLU 158 08/17/2022 POCGLU 155 08/17/2022 POCGLU 166 08/17/2022 POCGLU 165 08/17/2022 POCGLU 128 08/17/2022 POCGLU 129 08/17/2022 POCGLU 144 08/17/2022 POCGLU 147 08/17/2022 Skin Status: Shift Pressure Injury Prevention Occiput: No Injury Thoracic Spine: No Injury Sacral: No Injury Ischial - left: No Injury Ischial - right: No Injury Heel - left: No Injury Heel - right: No Injury Elbow - left: No Injury Elbow - right: No Injury Device Sites: ETT, OG, A line sites - tubing, A line Board, IV sites, mcrae, ECG Leads, BP Cuff, O2sat monitor, oxygen tubing Relevant medications: liquid tylenol, folic acid, lispro, protonix, miralax, pericolace, thiamine, vancomycin, epinephrine (stopped) , levo (stopped), propofol, stopped, vaso (stopped), insulin gtt Last Bowel Movement: 08/17/22 I/O from last 2 shifts: Intake/Output Summary (Last 24 hours) at 08/17/2022 1522 Last data filed at 08/17/2022 1504 Gross per 24 hour Intake 2111.38 ml Output 2300 ml Net -188.62 ml Admit Weight: 69 kg Estimated body mass index is 30.95 kg/m?? as calculated from the following: Height as of this encounter: 152.4 cm (5'). Weight as of this encounter: 71.9 kg (158 lb 8 oz). [place] Body Weight: 45.5 kg Usual Body Weight: see below Wt Readings from Last 10 Encounters: 08/17/22 71.9 kg (158 lb 8 oz) 07/03/22 69.9 kg (154 lb) 03/31/22 74.4 kg (164 lb) 02/12/22 78.7 kg (173 lb 9.6 oz) 09/23/21 78.5 kg (173 lb) 03/01/20 79.4 kg (175 lb) 11/22/18 80.3 kg (177 lb) 12/13/14 86.5 kg (190 lb 12.8 oz) 03/20/14 94 kg (207 lb 3.7 oz) 03/15/13 87.1 kg (192 lb) Patient Vitals for the past 168 hrs: Weight 08/17/22 0500 71.9 kg (158 lb 8 oz) 08/16/22 0400 73.8 kg (162 lb 11.2 oz) 08/15/22 0200 69.1 kg (152 lb 5.4 oz) 08/14/22 2322 69 kg (152 lb 1.9 oz) Assessment: Nutrition intake and intake history/Interview: TF recs as above. Estimated needs: Calories: 546-1137 (12-25 kcal/kg IBW) for first 7-10 day in the ICU Protein: 68-91 grams (1.5-2 g/kg IBW) Tolerance or barriers to meeting needs: tbd Nutrition Focused Physical Exam (NFPE): Not performed Protein-calorie Malnutrition: Not identified (Andrea, JPEN J Parenteral Enteral Nutr. 2011; 36(3): 273-83) Nutrition to continue to follow up while inpatient Nancy Ernst RD Pager #:[phone] * Jigar Cherry RN - 08/17/2022 10:09 AM EDT Called to see Ishan Irving who is a 62 y.o. female for a small bore insertion team consult. Admission Date/Time: 08/14/2022 11:11 PM Hospital Day: 3 Admitting Diagnosis: shock Ordering Provider: Socorro Avila Indication: feeds, meds Weighted or Not Weighted: weighted Ordered destination: stomach Attempted placement to right nares and pt experienced coughing and desat to 88% with resistance at 30cm. tube removed and pt was bolused with propofol and fentanyl. Left nare attempted and met significant resistance at 30cm again. Tube removed. Will reach out to another [facility] member for placement. Primary RNs at bedside during insertion attempts. Jigar Cherry RN August 17, 2022 * Ariadne Fuentes RCP - 08/17/2022 8:58 AM EDT AMV Protocol: Yes SBT Protocol: Yes SBT: Passed Vent Settings: Ventilator Mode: PS/CPAP PEEP Set: (S) 5 (weaned SPO2 98% on minimal FIO2) FiO2: 30 % PSV: 8 Ventilator Measurements: Resp: 15 Vt Spontaneous: 413 Ve: 6.6 SpO2: 99 % EtCO2: 34 mmHg ETT Airway: 7.0 @ 23 cm at the Teeth. Skin Integrity: WDL Breath Sounds: Diminished bilaterally Secretions: moderate amounts of white, pale yellow secretions Assessment / Events / Plan of the Day: Pt received on documented vent settings PSV 8/8 and 30% FIO2 Per RT report pt passed her SBT remains intubated for airway protection due to current mental status Vent changes made: PEEP weaned to 5 SPO2 98% Prior to wean , on 30% FIO2 Plan: remains intubated for airway protection due to mental status, cont Daily SBT /AMV protocol Ariadne Fuentes RCP * Alfonso Blackwood MD - 08/17/2022 8:54 AM EDT Critical Care Medicine Staff Progress Note 62 y.o. female with h/o bipolar, DM, EtOH, esophagitis, who presented to [facility] 3 days ago after being found unresponsive at home. Patient found to have likely pneumonia +/- aspiration, newly reduced EF. 24 hr events/subjective: -PSV vent mode this AM -passed SBP -not yet following commands -remains on vasopressin off; dobutamine 5 to 2.5; - heparin drip -Insulin drip -Low dose propofol RIJ PA line 3 peripherals Volume status - PAD 19 CI 3.4 I/Os - -830 Secretions - minimal at this time, were more extensive on admission PE Temp: [36.8 ??C (98.2 ??F)-37.5 ??C (99.5 ??F)] Heart Rate: [78-115] Resp: [11-31] BP: (97)/(52) SpO2: [93 %-100 %] Heart Rate from SpO2: [78 bpm-114 bpm] Vent settings: PSV 8/5/30% PAP: 31/19 CI 2.0 CVP 6 Gen: middle aged female, intubated, sedated CVS: tachycardic, reg rhythm, no murmurs Lungs: coarse throughout Abd: soft, NT, ND, BS hypoactive Ext: WWP, incision c/d/i Skin: no rashes Neuro: sedated, pupils equal, responsive Labs Last 3 wbc, hgb, hct plt Recent Labs 08/17/22 0045 08/16/22 0336 08/15/22 0305 WBC 18.6* 29.8* 39.8* HGB 8.2* 9.3* 10.2* HCT 26.0* 29.8* 34.4* PLATELET 176 295 350 Last 3 Lytes Recent Labs 08/17/22 0045 08/16/22 1800 08/16/22 0810 08/16/22 0336 08/15/22 2140 08/15/22 1620 NA -- 136 -- 138 -- 138 K 4.6 4.4 3.7 4.1 < > 5.0 5.0 CL -- 100 -- 103 -- 103 CO2 -- 24 -- 24 -- Not Perf BUN -- 37* -- 37* -- 39* CREATININE -- 1.15 -- 1.42* -- 1.50* < > = values in this interval not displayed. Last 3 LFTs Recent Labs 08/15/22 0950 08/15/22 0305 AST 21 25 ALT 12 13 ALKPHOS 102 99 BILITOT <0.2* 0.2 BILIDIR 0.1 0.1 Last Ca, Mg, Phos Recent Labs 08/17/22 0045 08/16/22 1800 CALCIUM -- 8.4* PHOS 2.2* -- MAGNESIUM 0.89 -- Last 3 Coags Recent Labs 08/15/22 0000 PT 22.3* INR 2.0 PTT 154* Last 3 ProBNP, Trop, CK Recent Labs 08/14/22 2355 PROBNP >35,000* Studies CXR 08/16/2022 IMPRESSION PA catheter has a persistent loop near the tip, similar to the prior comparison study. Improved pulmonary edema. Head CT 08/16/2022 IMPRESSION No acute intracranial abnormality and no change from prior I/O overnight: No intake/output data recorded. Weight: Patient Vitals for the past 168 hrs: Weight 08/17/22 0500 71.9 kg (158 lb 8 oz) 08/16/22 0400 73.8 kg (162 lb 11.2 oz) 08/15/22 0200 69.1 kg (152 lb 5.4 oz) 08/14/22 2322 69 kg (152 lb 1.9 oz) Micro: Recent Labs 08/15/22 1225 URINECULTURE 1,000-9,000 cfu/ml Insignificant growth Recent Labs 08/15/22 0740 GRAMSTAIN Many Neutrophils Few squamous epithelial cells Rare mixed bacterial morphotypes suggestive of normal upper respiratory wiley LOWERRESPCX Rare normal upper respiratory wiley Recent Labs 08/14/22 2355 08/15/22 0110 BLOODCX No growth at 2 days. No growth at 2 days. Lab Results Component Value Date GRAMSTAIN 08/15/2022 Many Neutrophils Few squamous epithelial cells Rare mixed bacterial morphotypes suggestive of normal upper respiratory wiley ABG (Arterial Blood Gas) Lab Results Component Value Date pH Art 7.48 (H) 08/16/2022 pO2 Art 78 (L) 08/16/2022 pCO2 Art 34 (L) 08/16/2022 PF 260 on 30% PSV 6/5 T/L/D Mcrae 08/15 ETT 08/14 CVL 08/15 Elida 08/15 ASSESSMENT, MANAGEMENT, and DECISION MAKING: Patient is a 62 yo female with h/o bipolar, EtOH who presented to [facility] 08/12 after being found unresponsive by . She was found to have pneumonia- possibilities include aspiration, viral vs. CAP.This is complicated by newly reduced EF. This could be c/w stress cardiomyopathy or NSTEMI. Stop heparin Awakening Trial and then as feasible a Trial of extubation Wean dobutamine as feasible Antibiotics Enteral tube prior to extubation Will start enteral feeds IS PATIENT CRITICALLY ILL ? Is there a high potential of sudden, clinically significant, or life threatening deterioration? Yes Is there a need for direct personal assessment and management to treat/prevent multiple vital organfailure/deterioration? Yes PATIENT IS CRITICALLY ILL WITH THESE DIAGNOSES BEING MANAGED BY [facility] TEAM: Congestive Heart Failure Systolic Acute Hypotension Arterial Intubated for airway protection secondary to hemodynamic instability, inability to protect airway Sepsis Severe w/ organ failure & septic shock Shock Cardiogenic Stupor ?? I personally performed 35 minutes of aggregate critical care time exclusive of procedures and teaching. This includes time during direct patient evaluation and reassessment, interpreting labs and studies, directing life and/or organ supporting organ interventions, and documentation on the unit. * Carlos Terry MD - 08/17/2022 7:48 AM EDT Images from the original note were not included. Cardiology ICU Progress Note ID: Ishan Irving is a 62 year old female with a medical history notable for recent L femoral neck fracture, bipolar disorder, resolving medication- induced Parkinsonism, insulin-dependent diabetes mellitus, hx of alcohol use disorder (reported to be in remission for 1.5 years) c/b chronic pancreatitis, iron deficiency anemia, GERD c/b esophagitis & Farrell's esophagus presenting in transfer from [facility], suspected to be in cardiogenic shock and found to be in mixed shock with concern for stress cardiomyopathy. 24 Hour Events/Subjective: Overnight: - NAEON. Briefly back to VC overnight with worsening respiratory alkalosis, tachypnea, but since back to PS. This AM: - Doing well on PS, 13/8, 30% FiO2 with 15RR, 413 TV. On 20 propofol. Dobutamine @ 5. PA 35/15, mean 22. CI 2.7 / SVR 1183. Resting comfortably in no apparent distress. Vasoactive & Sedating Medications: Infusions: Continuous Infusions: ??? vasopressin Stopped (08/17/22 0849) ??? DOBUTamine 2.5 mcg/kg/min (08/17/22 1000) ??? insulin regular human 0.5 Units/hr (08/17/22 1000) ??? fentaNYL 25 mcg/hr (08/17/22 1000) ??? propofoL 20 mcg/kg/min (08/17/22 1030) ??? NORepinephrine Stopped (08/17/22 0500) ??? EPINEPHrine Stopped (08/16/22 1230) Ventilator Settings: Mode: Servo U Ventilator Mode: PS/CPAP, SET RR: TV: PEEP: FiO2: VARIABLES Tidal Volume Set: 360 Set PEEP (cm H2O): (S) 5 (weaned SPO2 98% on minimal FIO2) Set FiO2: 55 % PATIENT RR: PIP: Pplateau: SpO2: OUTPUT Resp: 18 Peak Inspiratory Pressure: 14 Plateau Pressure (cm H2O): 20 SpO2: 100 % ABG (Arterial Blood Gas) Recent Labs 08/16/22200808/16/22175808/16/22 16008/16/22 1216 08/16/22 0817 PHART 7.48* 7.53* 7.53* 7.52* 7.46* [id number] 34* 26* 30* 30* 36 PO2ART 78* 48* 55* 59* 68* [id number] 25.0 21.2 24.9 24.2 24.8 LACTATEVEN 1.5 1.3 1.5 1.8 2.2 [id number] 30 21 21 21 21 PFRATIOART2 260 229 262 281 324 VBG (Venous Blood Gas) Recent Labs 08/16/22200808/16/22175808/16/22160108/16/22 1216 08/16/22 0817 LACTATEVEN 1.5 1.3 1.5 1.8 2.2 Mixed Venous Sat Recent Labs 08/16/22201108/16/22 1558 08/16/22 1211 08/16/22 1117 08/16/22 0948 [id number] 56.6 50.5 56.0 49.3 56.5 PA Catheter #'s PA Catheter PAP (mmHg): 64/38 (08/17/22999) PAP (mean): 50 (08/17/22999) PCWP (mmHg): 6 mmHg (08/16/222014) CO (l/min): 5.7 l/min (08/17/22844) CI (l/min/m2): 3.4 l/min/m2 (08/17/22844) SVR (dyne*sec)/cm2: 776 (dyne*sec)/cm2 (08/17/22844) SVRI (dyne*sec)/cm2: 1295 (dyne*sec)/cm5 (08/17/22844) Stroke Volume (ml): 62.3 ml (08/17/22844) PVR (dyne*sec)/cm2: 215 (dyne*sec)/cm2 (08/16/222014) SVO2 (%): 56.6 % (08/16/222014) CVP (mmHg): 39 mmHg (08/17/22 1000) Objective: Vitals Last value Range last 24 hrs Temperature Temp: 36.3 ??C (97.3 ??F) Temp: [36.3 ??C (97.3 ??F)-37.5 ??C (99.5 ??F)] Heart Rate Heart Rate: (!) 106 Heart Rate: [78-110] Blood Pressure BP: 97/52 BP: (97)/(52) Art Line BP BP (Arterial Line): 137/79 BP (Arterial Line): (76-137)/(42-79) MAP (NBP): [67 mmHg] Respiratory Rate Resp: 18 Resp: [11-31] SpO2 SpO2: 100 % SpO2: [93 %-100 %] Oxygen Delivery Oxygen Therapy O2 Device: Ventilator O2 Flow Rate (L/min): 21 L/min FiO2 (%): 30 % Intake/Output Summary (Last 24 hours) at 08/17/2022 1119 Last data filed at 08/17/2022 1000 Gross per 24 hour Intake 2151.14 ml Output 1940 ml Net 211.14 ml Patient Vitals for the past 168 hrs: Weight 08/17/22 0500 71.9 kg (158 lb 8 oz) 08/16/22 0400 73.8 kg (162 lb 11.2 oz) 08/15/22 0200 69.1 kg (152 lb 5.4 oz) 08/14/22 2322 69 kg (152 lb 1.9 oz) Admit wt: 69 kg Physical Exam: Gen: Intubated, critically-ill appearing woman. CV: Tachycardic, no murmurs or gallops noted. Resp: Ventilated breath sounds with rhonchi bilaterally Abd: BS+, no rebound tenderness Ext: 2+ distal pulses, no pedal edema. Feet warm to touch. No erythema or swelling surrounding the left hip incision. No observable tenderness to deep palpation of the left hip. Neuro: RASS -5 Labs: Recent Labs 08/17/22 0045 08/16/22 0336 08/15/22 0305 08/14/22 2355 08/14/22 2232 WBC 18.6* 29.8* 39.8* 36.7* -- HGB 8.2* 9.3* 10.2* 10.7* -- HCT 26.0* 29.8* 34.4* 35.9 36.0 PLATELET 176 295 350 370* -- MCV 65.0* 64.4* 67.7* 68.0* -- Recent Labs 08/17/22 0045 08/16/22 1800 08/16/22 0810 08/16/22 0336 08/15/22 2140 08/15/22 1620 08/15/22 0950 08/15/22 0305 08/14/22 2355 NA -- 136 -- 138 -- 138 -- 140 141 CL -- 100 -- 103 -- 103 -- 104 107 CO2 -- 24 -- 24 -- Not Perf -- Not Perf 17* K 4.6 4.4 3.7 4.1 3.5 5.0 5.0 < > 3.7 4.0 MAGNESIUM 0.89 -- -- 0.99 -- -- -- 0.90 0.97 PHOS 2.2* -- -- 2.7 -- -- -- 5.3* 5.9* CALCIUM -- 8.4* -- 8.1* -- 8.4* -- 8.3* 8.5 BUN -- 37* -- 37* -- 39* -- 38* 36* CREATININE -- 1.15 -- 1.42* -- 1.50* -- 1.42* 1.40* < > = values in this interval not displayed. LFTs Recent Labs 08/15/22 0950 08/15/22 0305 PROT 5.6* 5.6* ALBUMIN 2.4* 2.4* AST 21 25 ALT 12 13 ALKPHOS 102 99 BILITOT <0.2* 0.2 BILIDIR 0.1 0.1 Coags Recent Labs 08/15/22 0000 INR 2.0 PT 22.3* PTT 154* Cardiac Enzymes Recent Labs 08/14/225 PROBNP >35,000* Endocrine Recent Labs 08/15/22 0000 TSH 0.28 Recent Labs 08/17/22 0927 08/17/22 0750 08/17/22 0653 08/17/22 0618 08/17/22 0520 08/17/22 0419 08/17/22 0251 08/17/22 0205 08/17/22 0136 08/17/22 0107 08/17/22 0002 08/16/22 2313 POCGLU 170 158 155 166 165 128 129 144 147 134 147 154 Heme No results for input(s): LDH, HAPTOGLOBIN, URICACID in the last 168 hours. ABG (Arterial Blood Gas) Recent Labs 08/16/22200808/16/22175808/16/22 1602 08/16/22 1216 08/16/22 0817 PHART 7.48* 7.53* 7.53* 7.52* 7.46* [id number] 34* 26* 30* 30* 36 PO2ART 78* 48* 55* 59* 68* [id number] 25.0 21.2 24.9 24.2 24.8 LACTATEVEN 1.5 1.3 1.5 1.8 2.2 [id number] 30 21 21 21 21 PFRATIOART2 260 229 262 281 324 VBG (Venous Blood Gas) Recent Labs 08/16/22200808/16/22175808/16/22 1602 08/16/22 1216 08/16/22 0817 LACTATEVEN 1.5 1.3 1.5 1.8 2.2 Mixed Venous Sat Recent Labs 08/16/22201108/16/22 1558 08/16/22 1211 08/16/22 1117 08/16/22 0948 [id number] 56.6 50.5 56.0 49.3 56.5 Troponin - 316 @0336, 251 @0810. Microbiology: 08/14, BCx NGTD 08/15, UCx growing 1-9k colonies. 08/15, sputum culture NGTD. TTE: 08/15: Interpretation Summary -Left ventricle is mildly dilated. [...] on today's date, LVEF is slightly improved. ?? Imaging: CXR 08/16: PA catheter has a persistent loop near the tip, similar to the prior comparison study. Improved pulmonary edema. KUB /8: Nonspecific/nondiagnostic appearance of the abdomen, with large stool burden in the RIGHT hemiabdomen and pelvis. Assessment & Plan: Ms. Irving is a 62 year old female with a medical history notable for insulin-dependent diabetes mellitus, bipolar disorder, alcohol use disorder in remission, iron deficiency anemia, and recent L femoral neck fracture s/p surgical fixation presenting in transfer with acute hypoxic respiratory failure, pneumonia, and newfound heart failure. Overnight, seen to have increase in SVR and decrease in cardiac index, consistent with mild cardiogenic shock rather than previous mixed picture including distributive shock. Etiology of cardiogenic shock appears to be stress cardiomyopathy, though anterior infarct cannot be excluded. Will defer LHC unless she develops new STEMI or significant ventricular arrhythmia. Troponins downtrending, will stop checking for now. Dobutamine was started overnight (now 5mcg/min) with significant improvement in cardiac index. Contacted [facility] this morning, 72hr BCx remain NGTD. However, given suspicion of sepsis as primary inciting event, will continue vancomycin/zosyn for now. Appears euvolemic with PAD of13, goal net even today. Doing quite well this AM from respiratory and hemodynamic perspectives, on pressure support at 30% FiO2. Goal today to lighten sedation and trial extubation, though it is unclear if the likely primary insult leading to her intubation (possible aspiration pneumonia) has been fully managed. Given concern for prior aspiration and recent intubation, will place NGT prior to extubation. Recent CVP/PAD elevated with low urine output for last 24 hours, will dose 40mg IV lasix. Otherwise, will proceed with extubation, continue broad spectrum, and plan for LHC at some point prior to discharge. Neuro: #Sedation/analgesia - Propofol & fentanyl ?? #Hx of alcohol use disorder - Little clinical concern for current withdrawal, however on propofol so minimal/no risk of withdrawal ?? Pulmonary: #Acute hypoxic respiratory failure #Bilateral airspace opacities/multifocal pneumonia - Mechanical ventilation, ARDSnet protocol - Antibiotics: Vancomycin & zosyn; pending MRSA swab, discontinue vancomycin - Net even today. ?? Cardiac: #Distributive Shock #NSTEMI Type I vs Type II #HFrEF (EF 25%) #C/f Stress Cardiomyopathy - ASA 81mg - Therapeutic heparin converted to subQ prophylactic today. - Consider ischemic workup when more stable - Mg >1, K >4 ?? Renal/Fluids/Electrolytes: #MARILIN - Likely in setting of low perfusion state, interventions to improve her perfusion as above - Trend BMP BID to assess renal function & electrolytes ?? GI: #GERD c/b Farrell's esophagus & esophagitis - Continue home PPI 40 qd ?? Endocrine: #Insulin-dependent diabetes - Insulin gtt ?? #Metabolic acidosis - Likely in setting of shock, will trend gas ?? Hematology/oncology: #Iron deficiency anemia - Consider iron supplementation once out of critical illness - Transfuse for Hb <8 ?? #Leukocytosis - Suspect 2/2 infection vs shock state vs steroid effect - Abx as below ?? Infectious disease: #Septic shock #Bilateral airspace opacities/multifocal pneumonia - Repeat blood cultures, UA, sputum cultures, follow. - Abx: Vancomycin & zosyn #Routine Diet: NPO diet (Give Meds) DVT prophylaxis: heparin gtt GI Prophylaxis: home PPI Code Status: Attempt Cardiopulmonary Resuscitation - Inpatient Alternative Medical Decision Maker: zac Avila MD Internal Medicine, PGY-1 Cardiology [facility] #[id number] Cardiology Staff Addendum ?? Ishan Irving??is a 62 y.o.??female??whom I saw today with ??Margarita. ??I have personally interviewed and examined the patient and reviewed appropriate data, including labs, ECGs, and other diagnostic studies. I agree with the principal findings documented above, with additions and exceptions as below. ??The assessment and plan were formulated in discussion with me. ?? PATIENT IS CRITICALLY ILL WITH THESE DIAGNOSES BEING MANAGED BY [facility] TEAM: #Shock, mixed cardiogenic and distributive/septic, now resolved #Multifocal pneumonia #Acute hypoxic respiratory failure due to above #Acute on chronic HFrEF, index LVEF ~30%, potential etiologies includes stress cardiomyopathy or LAD infarct, likely the former ?? Patient with chronic metabolic disease (diabetes, obesity), bipolar disorder, alcohol use disorder??documented to be??in remission, iron deficiency anemia, and recent left femoral neck fracture status post??surgical fixation transferred for critical care management in the setting of shock, multifocal pneumonia, and a newly reduced LVEF. ??PE ruled out by CTA. ??ACS unlikely - the patient does nothave STEMI, hsTnT steadily downtrending and not initially markedly elevated. Appearance of the echo, which includes LV apical dilation and akinesis, a hyperdynamic base, and RV apical akinesis would seem to favor stress cardiomyopathy. Hemodynamics now markedly improved, with more than adequate CI o n dobutamine 5, no pressors. Vent on pressure support. Passed SBT. ?? Plan: -Reduce dobutamine to 2.5, with likely titration to off. -Extubate. -Continue abx. -Stop herpain. Continue DAPT, high-intensity statin. -Plan for cath this admission. ?? IS PATIENT CRITICALLY ILL? Is there a high potential of sudden, clinically significant, or life threatening deterioration? Yes Is there a need for direct personal assessment and management to treat/prevent multiple vital organfailure/deterioration? ??Yes ?? TIME spent on the unit excluding procedures:?35??mins. ??This includes time spent during direct patient evaluation and reassessment, interpretation of diagnostic tests, and direction of life and/or organ supporting interventions. ?? Carlos Terry MD, MARYAN, FACC, FACP, [facility] Cardiovascular Medicine * Richard Alva, OFFC SPEC - 08/16/2022 10:32 PM EDT AMV Protocol: Yes SBT Protocol: Yes SBT: Passed Vent Settings: Ventilator Mode: VC Tidal Volume Set: 360 Resp Rate Set: 15 PEEP Set: 8 FiO2: 30 % Ventilator Measurements: Resp: 22 Vt Exhaled: 360 PIP: 22 MAP: 9 Plateau Press: 20 Ve: 7.9 PEEP: 9 cmH20 SpO2: 98 % EtCO2: 33 mmHg Airway:??7.0??@ 23??cm at the Teeth. ??Skin Integrity:??WDL ?? Breath Sounds:??Coarse?Secretions:??Moderate thick kirby yellow ?? Assessment / Events / Plan of the Day: Patient received orally intubated and mechanically ventilated on above noted vent settings. 22:27 Patient went down to CT scan on vent tolerated well without event. 23:42 Patient waking up, transitioned to PS 8 PEEP + 8 and 30% FIO2 for pt. comfort. ?? Tolerated well overnight without event. 08/17/22 Passed SBT on CPAP +5 and 30% FIO2??but has AMS at this time. Plan to continue to manage per AMV/SBT protocol. RICHARD ALVA RRT * Adi Luo RCP - 08/16/2022 3:59 PM EDT AMV Protocol: Yes SBT Protocol: Yes SBT: Vent Settings: Ventilator Mode: VC Tidal Volume Set: 360 Resp Rate Set: 20 PEEP Set: 8 FiO2: 21 % Ventilator Measurements: Resp: 23 Vt Exhaled: 360 PIP: 24 MAP: 11 Plateau Press: 20 Ve: 8 PEEP: 10 cmH20 SpO2: 97 % EtCO2: 28 mmHg Airway: 7.0 @ 22 cm at the Teeth. Skin Integrity: WDL Breath Sounds: diminished and coarse Secretions: small creamy Assessment / Events / Plan of the Day: pt remains on vent on above settings Peep decreased to [address] Will continue to monitor pt 08/16 cxr Lungs are well-inflated. Interval improvement in previously visualized patchy alveolar opacities, mild persistence primarily at the left base. Cardiac and mediastinal contours unchanged. Improved pulmonary edema ADI LUO RCP * Vanessa Escalona MD - 08/16/2022 1:12 PM EDT Critical Care Medicine Staff Progress Note 62 y.o. female with h/o bipolar, DM, EtOH, esophagitis, who presented to [facility] 3 days ago after being found unresponsive at home. Patient found to have likely pneumonia +/- aspiration, newly reduced EF. 24 hr events/subjective: - remains on epinephrine/ levophed/ vaso - dobutamine added due to increasing SVR - levophed weaned off this am Drips: Epinephrine 2mcg/ min Vasopressin 0.04u/ min Dobutamine 5 PE Temp: [36.9 ??C (98.4 ??F)-38.2 ??C (100.8 ??F)] Heart Rate: [66-115] Resp: [20-24] BP: -- SpO2: [95 %-100 %] Heart Rate from SpO2: [64 bpm-114 bpm] Vent settings: 360 x 20 10 30% PAP: 31/19 CI 2.0 CVP 6 Gen: middle aged female, intubated, sedated CVS: tachycardic, reg rhythm, no murmurs Lungs: coarse throughout Abd: soft, NT, ND, BS hypoactive Ext: WWP, incision c/d/i Skin: no rashes Neuro: sedated, pupils equal, responsive Labs Last 3 wbc, hgb, hct plt Recent Labs 08/16/22 0336 08/15/22 0305 08/14/22 2355 WBC 29.8* 39.8* 36.7* HGB 9.3* 10.2* 10.7* HCT 29.8* 34.4* 35.9 PLATELET 295 350 370* Last 3 Lytes Recent Labs 08/16/22 0810 08/16/22 0336 08/15/22 2140 08/15/22 1620 08/15/22 0950 08/15/22 0305 NA -- 138 -- 138 -- 140 K 3.7 4.1 3.5 5.0 5.0 < > 3.7 CL -- 103 -- 103 -- 104 CO2 -- 24 -- Not Perf -- Not Perf BUN -- 37* -- 39* -- 38* CREATININE -- 1.42* -- 1.50* -- 1.42* < > = values in this interval not displayed. Last 3 LFTs Recent Labs 08/15/22 0950 08/15/22 0305 AST 21 25 ALT 12 13 ALKPHOS 102 99 BILITOT <0.2* 0.2 BILIDIR 0.1 0.1 Last Ca, Mg, Phos Recent Labs 08/16/22 0336 CALCIUM 8.1* PHOS 2.7 MAGNESIUM 0.99 Last 3 Coags Recent Labs 08/15/22 0000 PT 22.3* INR 2.0 PTT 154* Last 3 ProBNP, Trop, CK Recent Labs 08/14/22 2355 PROBNP >35,000* Studies CXR: PA catheter has a persistent loop near the tip, similar to the prior comparison Study. Improved pulmonary edema I/O overnight: I/O this shift: In: 455.7 [I.V.:355.7; NG/GT:100] Out: 740 [Urine:240; Other:500] Weight: Patient Vitals for the past 168 hrs: Weight 08/16/22 0400 73.8 kg (162 lb 11.2 oz) 08/15/22 0200 69.1 kg (152 lb 5.4 oz) 08/14/22 2322 69 kg (152 lb 1.9 oz) Micro: Recent Labs 08/15/22 1225 URINECULTURE 1,000-9,000 cfu/ml Insignificant growth Recent Labs 08/15/22 0740 GRAMSTAIN Many Neutrophils Few squamous epithelial cells Rare mixed bacterial morphotypes suggestive of normal upper respiratory wiley LOWERRESPCX Rare normal upper respiratory wiley Recent Labs 08/14/22 2355 08/15/22 0110 BLOODCX No growth at 1 day. No growth at 1 day. Lab Results Component Value Date GRAMSTAIN 08/15/2022 Many Neutrophils Few squamous epithelial cells Rare mixed bacterial morphotypes suggestive of normal upper respiratory wiley T/L/D Mcrae 08/15 ETT 08/14 CVL 08/15 Elida 08/15 ASSESSMENT, MANAGEMENT, and DECISION MAKING: Patient is a 62 yo female with h/o bipolar, EtOH who presented to [facility] 08/12 after being found unresponsive by . She was found to have pneumonia- possibilities include aspiration, viral vs. CAP.This is complicated by newly reduced EF. This could be c/w stress cardiomyopathy or NSTEMI. - continue dobutamine/ vasopressin - wean levophed/ epinephrine - q4h CI/ mixed venous - continue vanc/zosyn- check MRSA swab - sedation holiday - consider extubation tomorrow if patient remains stable on dobutamine/ vaso - ??start TF if unable to extubate tomorrow - MARILIN stable - cont net even Ppx: - scd's - HOB >30 - mouth care - hep gtt - PPI Code status: FULL CODE. Discussed with her , Rogelio over the phone. IS PATIENT CRITICALLY ILL ? Is there a high potential of sudden, clinically significant, or life threatening deterioration? Yes Is there a need for direct personal assessment and management to treat/prevent multiple vital organfailure/deterioration? Yes If this patient is not critically ill, the reason for continued hospitalization is [] PATIENT IS CRITICALLY ILL WITH THESE DIAGNOSES BEING MANAGED BY [facility] TEAM: Congestive Heart Failure Systolic Acute Hypotension Arterial Intubated for airway protection secondary to hemodynamic instability, inability to protect airway Sepsis Severe w/ organ failure & septic shock Shock Cardiogenic ?? I personally performed 65 minutes of aggregate critical care time exclusive of procedures and teaching. This includes time during direct patient evaluation and reassessment, interpreting labs and studies, directing life and/or organ supporting organ interventions, and documentation on the unit. * Carlos Terry MD - 08/16/2022 8:00 AM EDT Images from the original note were not included. Cardiology ICU Progress Note Patient info: Name: Ishan Irving : 1960 PCP: Chris Stanley APRN PCP phone number: [phone] Date of Admission: 08/14/2022 ( Hospital Day 2 days ) Attending:Carlos Terry MD ID: Ishan Irving is a 62 year old female with a medical history notable for recent L femoral neck fracture, bipolar disorder, resolving medication- induced Parkinsonism, insulin-dependent diabetes mellitus, hx of alcohol use disorder (reported to be in remission for 1.5 years) c/b chronic pancreatitis, iron deficiency anemia, GERD c/b esophagitis & Farrell's esophagus presenting in transfer from [facility], suspected to be in cardiogenic shock and found to be in mixed shock with concern for stress cardiomyopathy. 24 Hour Events/Subjective: Overnight: - Rising SVR, decreasing CI overnight. Dobutamine started @2.5mcg/min with appropriate increase in CI from 1.5 -> 2.4. Now on 2 epi / 4 norepi. Vent settings TV 360 / PEEP 10 / FiO2 21%. -> - Also seen to have cloudy urine; UA showing many bacteria but negative nitrite/trace leukocytes. This AM: - Seen intubated in no clear distress. Vasoactive & Sedating Medications: Infusions: Continuous Infusions: ??? insulin regular human 2 Units/hr (08/16/22822) ??? vasopressin 0.04 Units/min (08/16/22848) ??? DOBUTamine 5 mcg/kg/min (08/16/22 08) ??? fentaNYL Stopped (08/16/22804) ??? propofoL 20 mcg/kg/min (08/16/22212) ??? NORepinephrine Stopped (08/16/22918) ??? EPINEPHrine 2 mcg/min (08/16/22620) ??? heparin (porcine) infusion 650 Units/hr (08/15/22 1800) Ventilator Settings: Mode: Servo U Ventilator Mode: VC, SET RR: TV: PEEP: FiO2: VARIABLES Tidal Volume Set: 360 Set PEEP (cm H2O): (S) 8 Set FiO2: 21 % PATIENT RR: PIP: Pplateau: SpO2: OUTPUT Resp: 24 Peak Inspiratory Pressure: 12 Plateau Pressure (cm H2O): 20 SpO2: (S) 96 % ABG (Arterial Blood Gas) Recent Labs 08/16/22 0817 08/16/2244008/15/22235808/15/22200708/15/22 1616 PHART 7.46* 7.47* 7.46* 7.44 7.38 [id number] 36 34* 36 30* 36 PO2ART 68* 71* 75* 78* 78* [id number] 24.8 24.5 24.7 19.7* 20.8 LACTATEVEN 2.2 1.7 2.2 1.6 1.8 [id number] 21 25 25 25 30 PFRATIOART2 324 284 300 312 260 VBG (Venous Blood Gas) Recent Labs 08/16/22 0817 08/16/2244008/15/22235808/15/22200708/15/22 1616 LACTATEVEN 2.2 1.7 2.2 1.6 1.8 Mixed Venous Sat Recent Labs 08/16/22 0820 08/16/22 0444 08/16/223 08/16/22 0004 08/15/222009 [id number] 48.7 54.2 51.3 46.3 49.8 PA Catheter #'s PA Catheter PAP (mmHg): 30/17 (08/16/22599) PAP (mean): 22 (08/16/22599) CO (l/min): 3 l/min (08/16/22799) CI (l/min/m2): 1.8 l/min/m2 (08/16/22799) SVR (dyne*sec)/cm2: 1680 (dyne*sec)/cm2 (08/16/22799) SVRI (dyne*sec)/cm2: 2587 (dyne*sec)/cm5 (08/15/221154) Stroke Volume (ml): 30.5 ml (08/15/221154) SVO2 (%): 48.7 % (08/16/22799) CVP (mmHg): 5 mmHg (08/16/22599) Objective: Vitals Last value Range last 24 hrs Temperature Temp: 36.9 ??C (98.4 ??F) Temp: [36.9 ??C (98.4 ??F)-38.2 ??C (100.8 ??F)] Heart Rate Heart Rate: 95 Heart Rate: [66-109] Blood Pressure BP: (!) 89/73 BP: -- Art Line BP BP (Arterial Line): 121/53 BP (Arterial Line): (97-129)/(46-61) MAP (NBP): -- Respiratory Rate Resp: 24 Resp: [20-24] SpO2 SpO2: (S) 96 % SpO2: [95 %-100 %] Oxygen Delivery Oxygen Therapy O2 Device: Ventilator FiO2 (%): 25 % Intake/Output Summary (Last 24 hours) at 08/16/2022 0950 Last data filed at 08/16/2022 0800 Gross per 24 hour Intake 3531.1 ml Output 4525 ml Net -993.9 ml Patient Vitals for the past 168 hrs: Weight 08/16/22 0400 73.8 kg (162 lb 11.2 oz) 08/15/22 0200 69.1 kg (152 lb 5.4 oz) 08/14/22 2322 69 kg (152 lb 1.9 oz) Admit wt: 69 kg Physical Exam: Gen: Intubated, critically-ill appearing woman. CV: Tachycardic, no murmurs or gallops noted. Resp: Ventilated breath sounds with rhonchi bilaterally Abd: BS+, no rebound tenderness Ext: 2+ distal pulses, no pedal edema. Feet warm to touch. No erythema or swelling surrounding the left hip incision. No observable tenderness to deep palpation of the left hip. Neuro: RASS -5 Labs: Recent Labs 08/16/22 0336 08/15/22 0305 08/14/222354 WBC 29.8* 39.8* 36.7* HGB 9.3* 10.2* 10.7* HCT 29.8* 34.4* 35.9 PLATELET 295 350 370* MCV 64.4* 67.7* 68.0* Recent Labs 08/16/22 0810 08/16/22 0336 08/15/22 2140 08/15/22 1620 08/15/22 0950 08/15/22 0305 08/14/22 2355 NA -- 138 -- 138 -- 140 141 CL -- 103 -- 103 -- 104 107 CO2 -- 24 -- Not Perf -- Not Perf 17* K 3.7 4.1 3.5 5.0 5.0 3.2* 3.7 4.0 MAGNESIUM -- 0.99 -- -- -- 0.90 0.97 PHOS -- 2.7 -- -- -- 5.3* 5.9* CALCIUM -- 8.1* -- 8.4* -- 8.3* 8.5 BUN -- 37* -- 39* -- 38* 36* CREATININE -- 1.42* -- 1.50* -- 1.42* 1.40* LFTs Recent Labs 08/15/22 0950 08/15/22 030 PROT 5.6* 5.6* ALBUMIN 2.4* 2.4* AST 21 25 ALT 12 13 ALKPHOS 102 99 BILITOT <0.2* 0.2 BILIDIR 0.1 0.1 Coags Recent Labs 08/15/22 0000 INR 2.0 PT 22.3* PTT 154* Cardiac Enzymes Recent Labs 08/14/222354 PROBNP >35,000* Endocrine Recent Labs 08/15/22 0000 TSH 0.28 Recent Labs 08/16/22 0947 08/16/22 0554 08/16/22 0334 08/16/22 0138 08/16/22 0101 08/15/22 2146 08/15/22 1803 08/15/22 1651 08/15/22 1401 08/15/22 1316 08/15/22 1300 08/15/22 1159 POCGLU 159 194 207* 165 136 211* 186 210* 94 89 69 83 Heme No results for input(s): LDH, HAPTOGLOBIN, URICACID in the last 168 hours. ABG (Arterial Blood Gas) Recent Labs 08/16/22 0817 08/16/22 0441 08/15/22235808/15/22200708/15/22 1616 PHART 7.46* 7.47* 7.46* 7.44 7.38 KVC3LUS 36 34* 36 30* 36 PO2ART 68* 71* 75* 78* 78* [id number] 24.8 24.5 24.7 19.7* 20.8 LACTATEVEN 2.2 1.7 2.2 1.6 1.8 [id number] 21 25 25 25 30 PFRATIOART2 324 284 300 312 260 VBG (Venous Blood Gas) Recent Labs 08/16/22 0817 08/16/22 04408/15/22235808/15/22200708/15/22 1616 LACTATEVEN 2.2 1.7 2.2 1.6 1.8 Mixed Venous Sat Recent Labs 08/16/22 0820 08/16/22 0444 08/16/22 0213 08/16/22 0004 08/15/222009 [id number] 48.7 54.2 51.3 46.3 49.8 Troponin - 316 @0336, 251 @0810. Microbiology: 08/14, BCx NGTD 08/15, UCx growing 1-9k colonies. 08/15, sputum culture NGTD. TTE: 08/15: Interpretation Summary -Left ventricle is mildly dilated. [...] on today's date, LVEF is slightly improved. ?? Imaging: CXR 08/16: PA catheter has a persistent loop near the tip, similar to the prior comparison study. Improved pulmonary edema. KUB 08/15: Nonspecific/nondiagnostic appearance of the abdomen, with large stool burden in the RIGHT hemiabdomen and pelvis. Assessment & Plan: Ms. Irving is a 62 year old female with a medical history notable for insulin-dependent diabetes mellitus, bipolar disorder, alcohol use disorder in remission, iron deficiency anemia, and recent L femoral neck fracture s/p surgical fixation presenting in transfer with acute hypoxic respiratory failure, pneumonia, and newfound heart failure. Overnight, seen to have increase in SVR and decrease in cardiac index, consistent with mild cardiogenic shock rather than previous mixed picture including distributive shock. Etiology of cardiogenic shock appears to be stress cardiomyopathy, though anterior infarct cannot be excluded. Will defer LHC unless she develops new STEMI or significant ventricular arrhythmia. Troponins downtrending, will stop checking for now. Dobutamine was started overnight (now 5mcg/min) with significant improvement in cardiac index. Contacted [facility] this morning, 72hr BCx remain NGTD. However, given suspicion of sepsis as primary inciting event, will continue vancomycin/zosyn for now. Appears euvolemic with PAD of13, goal net even today. Neuro: #Sedation/analgesia - Propofol & fentanyl ?? #Hx of alcohol use disorder - Little clinical concern for current withdrawal, however on propofol so minimal/no risk of withdrawal ?? Pulmonary: #Acute hypoxic respiratory failure #Bilateral airspace opacities/multifocal pneumonia - Mechanical ventilation, ARDSnet protocol - Antibiotics: Vancomycin & zosyn; pending MRSA swab, discontinue vancomycin - Net even today. ?? Cardiac: #Distributive Shock #NSTEMI Type I vs Type II #HFrEF (EF 25%) #C/f Stress Cardiomyopathy - ASA 81mg - Heparin gtt - Consider ischemic workup when more stable - Mg >1, K >4 - trend troponins to peak ?? Renal/Fluids/Electrolytes: #MARILIN - Likely in setting of low perfusion state, interventions to improve her perfusion as above - Trend BMP BID to assess renal function & electrolytes ?? GI: #GERD c/b Farrell's esophagus & esophagitis - Continue home PPI 40 qd ?? Endocrine: #Insulin-dependent diabetes - Insulin gtt ?? #Metabolic acidosis - Likely in setting of shock, will trend gas ?? Hematology/oncology: #Iron deficiency anemia - Consider iron supplementation once out of critical illness - Transfuse for Hb <8 ?? #Leukocytosis - Suspect 2/2 infection vs shock state vs steroid effect - Abx as below ?? Infectious disease: #Septic shock #Bilateral airspace opacities/multifocal pneumonia - Repeat blood cultures, UA, sputum cultures, follow. - Abx: Vancomycin & zosyn #Routine Diet: NPO diet (Give Meds) DVT prophylaxis: heparin gtt GI Prophylaxis: home PPI Code Status: Attempt Cardiopulmonary Resuscitation - Inpatient Alternative Medical Decision Maker: zac Avila MD Internal Medicine, PGY-1 Cardiology [facility] #[id number] Cardiology Staff Addendum ?? Ishan Irving??is a 62 y.o.??female??whom I saw today with Dr. Avila. ??I have personallyinterviewed and examined the patient and reviewed appropriate data, including labs, ECGs, and otherdiagnostic studies. I agree with the principal findings documented above, with additions and exceptions as below. ??The assessment and plan were formulated in discussion with me. ?? PATIENT IS CRITICALLY ILL WITH THESE DIAGNOSES BEING MANAGED BY [facility] TEAM: #Shock, mixed cardiogenic and distributive/septic, now predominantly cardiogenic #Multifocal pneumonia #Acute hypoxic respiratory failure due to above #Acute on chronic HFrEF, index LVEF ~30%, potential etiologies includes stress cardiomyopathy or LAD infarct, likely the former ?? Patient with chronic metabolic disease (diabetes, obesity), bipolar disorder, alcohol use disorder??documented to be??in remission, iron deficiency anemia, and recent left femoral neck fracture status post??surgical fixation transferred for critical care management in the setting of shock, multifocal pneumonia, and a newly reduced LVEF. ??PE ruled out by CTA. ??ACS unlikely - the patient does nothave STEMI, hsTnT steadily downtrending and not initially markedly elevated. Appearance of the echo, which includes LV apical dilation and akinesis, a hyperdynamic base, and RV apical akinesis would seem to favor stress cardiomyopathy. ??Over past 24 hours, patient's hemodynamics shifted from distri butive to cardiogenic shock as we have continued to adequately treat PNA. Adequate MAP with evidence of good end-organ perfusion, euvolemic. Patient on minimal vent settings. ?? Plan: -Titrate dobutamine to achieve CI of 2.0 or greater; stop epinephrine; continue vasopressin; q4hrs TD and mixed venous sat -Broad spectrum abx. -Follow up. -SBT tomorrow morning with possible extubation. -No emergent indication for invasive angiography, but plan for cath this admission. ?? IS PATIENT CRITICALLY ILL? Is there a high potential of sudden, clinically significant, or life threatening deterioration? Yes Is there a need for direct personal assessment and management to treat/prevent multiple vital organfailure/deterioration? Yes TIME spent on the unit excluding procedures: 35 mins. This includes time spent during direct patient evaluation and reassessment, interpretation of diagnostic tests, and direction of life and/or organ supporting interventions. ?? Carlos Terry MD, MARYAN, FACC, FACP, FASE Cardiovascular Medicine * Richard Alva, OFFC SPEC - 08/15/2022 9:04 PM EDT AMV Protocol: Yes SBT Protocol: Yes SBT: Not performed/Excluded: Predefined weaning plan Vent Settings: Ventilator Mode: VC Tidal Volume Set: 360 Resp Rate Set: 20 PEEP Set: 10 FiO2: 25 % Ventilator Measurements: Resp: 20 Vt Exhaled: 360 PIP: 25 MAP: 15 Plateau Press: 20 Ve: 7.2 PEEP: 11 cmH20 SpO2: 98 % EtCO2:33 mmHg Airway:??7.0??@ 23??cm at the Teeth. ??Skin Integrity:??WDL Breath Sounds:??Coarse?Secretions:??Moderate thick kirby yellow Assessment / Events / Plan of the Day: Patient received orally intubated and mechanically ventilated on above noted vent settings. Plan to rest on current VCV settings overnight. Tolerated well overnight without event. Plan to manage per AMV protocol. RICHARD ALVA RRT * Adi Luo RCP - 08/15/2022 5:19 PM EDT AMV Protocol: Yes SBT Protocol: Yes SBT: Vent Settings: Ventilator Mode: VC Tidal Volume Set: 360 Resp Rate Set: 20 PEEP Set: 10 FiO2: 30 % Ventilator Measurements: Resp: 22 Vt Exhaled: 346 PIP: 19 MAP: 9.3 Plateau Press: 20 Ve: 7.9 PEEP: 11 cmH20 SpO2: 99 % EtCO2: 33 mmHg Airway: 7.0 @ 23 cm at the Teeth. Skin Integrity: WDL Breath Sounds: diminished Secretions: small kirby yellow Assessment / Events / Plan of the Day: pt remains on vent on above settings ramiro well ET hughes changed Pt has no treatments ordered at this time sputem sample sent to lab Will continue to monitor pt cxr 08/15 IMPRESSION FINDINGS/IMPRESSION: * RIGHT neck central catheter redemonstrated terminating over the region of the pulmonary trunk, now uncoiled distally although the tip is looped. * Moderate pulmonary edema redemonstrated. * ET tube projects similar. ADI LUO RCP * Vanessa Escalona MD - 08/15/2022 2:25 PM EDT Discussed history with family at bedside. Patient had left hip ORIF 08/08 and was discharged to home 08/09. She was doing well at home for the first two days postop. On postop day 3, her found her less responsive in bed after sleeping. He placed his pulse oximeter on her and found her HR was 180bpm and her O2 sat was 76% on RA. He called 911, and patient was transferred to the ED at [facility]. Per the patient she was following simple commands while at [facility]. Discussed her current status with the family at the bedside. * Vanessa Escalona MD - 08/15/2022 10:28 AM EDT Critical Care Medicine Staff Progress Note 62 y.o. female with h/o bipolar, DM, EtOH, esophagitis, who presented to [facility] 3 days ago after being found unresponsive at home. She is s/p ORIF left femoral neck fracture 5 days ago. She was initially treated with narcan and oxygen. Her respiratory status continued to decline, and increasing concerns over patient's ability to protect her airway. She was intubated on HD #3. TTE demonstrated severely reduced LV function with apical abnormalities, normal RV function. ECG demonstrated poor R wave progression and her Trop I levels were elevated. She was started on dobutamine, heparin, ASA and Lasix. En route to [facility] her pressor requirement increased to include Levophed and Epinephrine. 24 hr events/subjective: - swan placed - TTE repeated with evidence of WMA, apex> base - antibiotics broadened - lactate downtrended this am - OGT placed Drips: Epinephrine 2mcg/ min NE 16 mcg/ min Propofol Fentanyl PE Temp: [36.9 ??C (98.4 ??F)-37.4 ??C (99.3 ??F)] Heart Rate: [96-120] Resp: [18-34] BP: (75-97)/(58-73) SpO2: [85 %-100 %] Heart Rate from SpO2: [56 bpm-119 bpm] Vent settings: 360 x 20 10 30% PAP: 31/19 CI 2.0 CVP 6 Gen: middle aged female, intubated, sedated CVS: tachycardic, reg rhythm, no murmurs Lungs: coarse throughout Abd: soft, NT, ND, BS hypoactive Ext: WWP, incision c/d/i Skin: no rashes Neuro: sedated, pupils equal, responsive Labs Last 3 wbc, hgb, hct plt Recent Labs 08/15/22 0305 08/14/22 2355 WBC 39.8* 36.7* HGB 10.2* 10.7* HCT 34.4* 35.9 PLATELET 350 370* Last 3 Lytes Recent Labs 08/15/22 0950 08/15/22 0305 08/14/22 2355 NA -- 140 141 K 3.2* 3.7 4.0 CL -- 104 107 CO2 -- Not Perf 17* BUN -- 38* 36* CREATININE -- 1.42* 1.40* Last 3 LFTs Recent Labs 08/15/22 0950 08/15/22 0305 AST 21 25 ALT 12 13 ALKPHOS 102 99 BILITOT <0.2* 0.2 BILIDIR 0.1 0.1 Last Ca, Mg, Phos Recent Labs 08/15/22 0305 CALCIUM 8.3* PHOS 5.3* MAGNESIUM 0.90 Last 3 Coags Recent Labs 08/15/22 0000 PT 22.3* INR 2.0 PTT 154* Last 3 ProBNP, Trop, CK Recent Labs 08/14/22 2355 PROBNP >35,000* Studies AXR: * An enteric tube courses below the diaphragm with tip in the expected region of the stomach. Sidehole is not definitively subdiaphragmatic. * Unchanged position of right neck central catheter terminating over the region of the pulmonary trunk. * Endotracheal tube terminates 3.1 cm above the consuelo. CXR: * RIGHT neck central catheter redemonstrated terminating over the region of the pulmonary trunk, now uncoiled distally although the tip is looped. * Moderate pulmonary edema redemonstrated. * ET tube projects similar. I/O overnight: No intake/output data recorded. Weight: Patient Vitals for the past 168 hrs: Weight 08/15/22 0200 69.1 kg (152 lb 5.4 oz) 08/14/22 2322 69 kg (152 lb 1.9 oz) Micro: No results for input(s): URINECULTURE in the last 720 hours. No results for input(s): GRAMSTAIN, BFCX, LOWERRESPCX, TISSUECX in the last 720 hours. No results for input(s): BLOODCX in the last 720 hours. T/L/D [place] 08/15 ETT 08/14 CVL 08/15 [place] 08/15 ASSESSMENT, MANAGEMENT, and DECISION MAKING: Patient is a 62 yo female with h/o bipolar, EtOH who presented to [facility] 08/12 after being found unresponsive by . She was hypoxemic, with altered mental status that minimally improved with narcan. Her CXR at that time was concerning for right PNA. She was treated for CAP. Her clinical course would be consistent with aspiration or CAP with worsening status over several days c/b stress cardiomyopathy vs. NSTEMI. Neuro: CT head normal, responding to pain - cont prop/ fent for sedation and pain - wean as tolerated to RASS -3 Pulm: CT chest with evidence of bilateral PNA vs. Aspiration vs volume overload - filling pressures high normal, less likely to be volume overload - continue vanc/ zosyn - send sputum sample if able - wean PEEP to 8 CV: newly depressed EF - repeat TTE today - trend troponin - daily ECG - wean NE to MAP > 60 - wean Epi to CI >2 - continue asa/ heparin GI: increased stool burden - bowel regimen - monitor exam ID: Distributive shock picture- most likely source PNA - f/u cultures - continue current antibiotics - if no improvement will contact ortho due to recent hip fx, no evidence of infection at that site - recheck COVID 19 Renal: MARILIN - MARILIN in the setting of recent dye load, shock - good UOP - continue lasix for net even - many bacteria on UA, f/u culture Ppx: - scd's - HOB >30 - mouth care - hep gtt - PPI Code status: FULL CODE IS PATIENT CRITICALLY ILL ? Is there a high potential of sudden, clinically significant, or life threatening deterioration? Yes Is there a need for direct personal assessment and management to treat/prevent multiple vital organfailure/deterioration? Yes If this patient is not critically ill, the reason for continued hospitalization is [] PATIENT IS CRITICALLY ILL WITH THESE DIAGNOSES BEING MANAGED BY [facility] TEAM: Congestive Heart Failure Systolic Acute Hypotension Arterial and With Shock Cardiogenic Septic Intubated for airway protection secondary to hemodynamic instability, inability to protect airway Sepsis Severe w/ organ failure & septic shock Shock Cardiogenic Septic I personally performed 65 minutes of aggregate critical care time exclusive of procedures and teaching. This includes time during direct patient evaluation and reassessment, interpreting labs and studies, directing life and/or organ supporting organ interventions, and documentation on the unit. * Carlos Terry MD - 08/15/2022 7:19 AM EDT Images from the original note were not included. Cardiology ICU Progress Note Patient info: Name: Ishan Irving : 1960 PCP: Chris Stanley APRN PCP phone number: [phone] Date of Admission: 08/14/2022 ( Hospital Day 1 day ) Attending:Carlos Terry MD ID: Ishan Irving is a 62 year old female with a medical history notable for recent L femoral neck fracture, bipolar disorder, resolving medication- induced Parkinsonism, insulin-dependent diabetes mellitus, hx of alcohol use disorder (reported to be in remission for 1.5 years) c/b chronic pancreatitis, iron deficiency anemia, GERD c/b esophagitis & Farrell's esophagus presenting in transfer from [facility], suspected to be in cardiogenic shock and found to be in mixed shock with concern for stress cardiomyopathy. 24 Hour Events/Subjective: Yesterday: -- Overnight: - [place] was floated - now off dobutamine and on lower pressors overall - lasix gtt - no enteral access so unable to receive ASA or Plavix; multiple attempts at NG overnight were unsuccessful -- Vasoactive & Sedating Medications: Infusions: Continuous Infusions: ??? furosemide 5 mg/hr (08/15/22 0235) ??? insulin regular human 7 Units/hr (08/15/22 0753) ??? DOBUTamine Stopped (08/15/22 0130) ??? fentaNYL 25 mcg/hr (08/15/22 0207) ??? propofoL 20 mcg/kg/min (08/15/22 0246) ??? NORepinephrine 16 mcg/min (08/15/22 0520) ??? EPINEPHrine 2 mcg/min (08/15/22 0317) ??? heparin (porcine) infusion 650 Units/hr (08/15/22 0328) Ventilator Settings: Mode: Servo U Ventilator Mode: VC, SET RR: TV: PEEP: FiO2: VARIABLES Tidal Volume Set: 360 Set PEEP (cm H2O): 10 Set FiO2: (S) 30 % PATIENT RR: PIP: Pplateau: SpO2: OUTPUT Resp: (!) 34 Peak Inspiratory Pressure: 23 Plateau Pressure (cm H2O): 20 SpO2: 100 % ABG (Arterial Blood Gas) Recent Labs 08/15/22 0555 08/15/22 0531 08/15/2231008/14/222356 PHART -- 7.30* 7.25* 7.25* UVT0NCI -- 41 38 42 PO2ART -- 117* 112* 242* [id number] -- 19.6* 16.0* 17.9* LACTATEVEN 3.1* 3.6* 1.9 2.6* [id number] -- 40 40 60 PFRATIOART2 -- 292 280 403 VBG (Venous Blood Gas) Recent Labs 08/15/22 0555 08/15/22 0531 08/15/2231008/14/222356 LACTATEVEN 3.1* 3.6* 1.9 2.6* Mixed Venous Sat Recent Labs 08/15/22 0533 08/15/22 0113 [id number] 63.7 63.3 PA Catheter #'s PA Catheter PAP (mmHg): 31/19 (08/15/22599) PAP (mean): 24 (08/15/22599) CO (l/min): 5.1 l/min (quincy) (08/15/22546) CI (l/min/m2): 3 l/min/m2 (quincy) (08/15/22546) SVR (dyne*sec)/cm2: 988 (dyne*sec)/cm2 (quincy) (08/15/22546) SVRI (dyne*sec)/cm2: 2178 (dyne*sec)/cm5 (08/15/22313) Stroke Volume (ml): 38.8 ml (08/15/22313) SVO2 (%): 63.7 % (08/15/22546) CVP (mmHg): 6 mmHg (08/15/22599) Objective: Vitals Last value Range last 24 hrs Temperature Temp: 37.4 ??C (99.3 ??F) Temp: [36.9 ??C (98.4 ??F)-37.4 ??C (99.3 ??F)] Heart Rate Heart Rate: (!) 110 Heart Rate: [109-120] Blood Pressure BP: (!) 89/73 BP: (75-97)/(58-73) Art Line BP BP (Arterial Line): 95/52 BP (Arterial Line): (95-112)/(52-57) MAP (NBP): [65 mmHg-80 mmHg] Respiratory Rate Resp: (!) 34 Resp: [18-34] SpO2 SpO2: 100 % SpO2: [85 %-100 %] Oxygen Delivery Oxygen Therapy O2 Device: Ventilator FiO2 (%): 40 % Intake/Output Summary (Last 24 hours) at 08/15/2022 0847 Last data filed at 08/15/2022 0600 Gross per 24 hour Intake 1246.81 ml Output 1045 ml Net 201.81 ml Patient Vitals for the past 168 hrs: Weight 08/15/22 0200 69.1 kg (152 lb 5.4 oz) 08/14/22 2322 69 kg (152 lb 1.9 oz) Admit wt: 69 kg Physical Exam: Gen: Intubated, critically-ill appearing woman. CV: Tachycardic, no murmurs or gallops noted. Resp: Ventilated breath sounds with rhonchi bilaterally Abd: BS+, no rebound tenderness Ext: 2+ distal pulses, no pedal edema. Feet warm to touch. No erythema or swelling surrounding the left hip incision. No observable tenderness to deep palpation of the left hip. Neuro: RASS -5 Labs: Recent Labs 08/15/22 0305 08/14/22 2355 WBC 39.8* 36.7* HGB 10.2* 10.7* HCT 34.4* 35.9 PLATELET 350 370* MCV 67.7* 68.0* Recent Labs 08/15/22 0305 08/14/22 2355 NA 140 141 CL 104 107 CO2 Not Perf 17* K 3.7 4.0 MAGNESIUM 0.90 0.97 PHOS 5.3* 5.9* CALCIUM 8.3* 8.5 BUN 38* 36* CREATININE 1.42* 1.40* LFTs Recent Labs 08/15/22 0305 PROT 5.6* ALBUMIN 2.4* AST 25 ALT 13 ALKPHOS 99 BILITOT 0.2 BILIDIR 0.1 Coags Recent Labs 08/15/22 0000 INR 2.0 PT 22.3* PTT 154* Cardiac Enzymes Recent Labs 08/14/22 2355 PROBNP >35,000* Endocrine Recent Labs 08/15/22 0000 TSH 0.28 Recent Labs 08/15/22 0751 08/15/22 0638 08/15/22 0500 POCGLU 189 219* 280* Heme No results for input(s): LDH, HAPTOGLOBIN, URICACID in the last 168 hours. ABG (Arterial Blood Gas) Recent Labs 08/15/22 0555 08/15/22 0531 08/15/22 0311 08/14/22 2357 PHART -- 7.30* 7.25* 7.25* [id number] -- 41 38 42 PO2ART -- 117* 112* 242* NOB0CSF -- 19.6* 16.0* 17.9* LACTATEVEN 3.1* 3.6* 1.9 2.6* OMY2ICN -- 40 40 60 PFRATIOART2 -- 292 280 403 VBG (Venous Blood Gas) Recent Labs 08/15/22 0555 08/15/22 0531 08/15/22 0311 08/14/22 2357 LACTATEVEN 3.1* 3.6* 1.9 2.6* Mixed Venous Sat Recent Labs 08/15/22 0533 08/15/22 0113 [id number] 63.7 63.3 Troponin HS: 617 at midnight Microbiology: - 08/15 blood cultures: pending TTE: 08/14: - anteroseptal and RV/LV apex akinesis - EF ~25% Imaging: CXR: * RIGHT neck central catheter redemonstrated terminating over the region of the pulmonary trunk, now uncoiled distally although the tip is looped. * Moderate pulmonary edema redemonstrated. * ET tube projects similar. KUB: Nonspecific/nondiagnostic appearance of the abdomen, with large stool burden in the RIGHT hemiabdomen and pelvis. Assessment & Plan: Ms. Irving is a 62 year old female with a medical history notable for insulin-dependent diabetes mellitus, bipolar disorder, alcohol use disorder in remission, iron deficiency anemia, and recent L femoral neck fracture s/p surgical fixation presenting in transfer with acute hypoxic respiratory failure, pneumonia, and newfound heart failure. The current thought is that Ishan's presentation is secondary to likely aspiration that caused anacute decline in her respiratory status. She is decidedly in distributive shock with a low SVR regardless of norepi, likely secondary to her pulmonary infection that likely resulted from aspiration. A spiration may have occurred during/after her surgery 6 days ago however more likely occurred at home and the worsened over the first few days of hospitalization at [facility]. Will keep her on broad spectrum antibiotics. Will monitor blood cultures obtained here as well as those obtained at [facility] prior to transfer. Her TTE appears to be most likely a stress cardiomyopathy with poor movement at the apex of both ventricles. It is possible that her presentation represents ACS with some T waves inversions in her anterior leads this does not seem the most likely explanation at this juncture. Will continue on a heparin gtt and consider cardiac cath when she is more stable. She is slightly volume up in the settingof likely fluids over the last few days for sepsis and her EF of 25%. Will aim for gentle diuresis with boluses of Lasix to aim for 500-1L NN over 24h. Will make additional attempts to reach her today. Neuro: #Sedation/analgesia - Propofol & fentanyl ?? #Hx of alcohol use disorder - Little clinical concern for current withdrawal, however on propofol so minimal/no risk of withdrawal ?? Pulmonary: #Acute hypoxic respiratory failure #Bilateral airspace opacities/multifocal pneumonia - Mechanical ventilation, ARDSnet protocol - Antibiotics: Vancomycin & zosyn; pending MRSA swab, discontinue vancomycin - Diuresis as below ?? Cardiac: #Distributive Shock #NSTEMI Type I vs Type II #HFrEF (EF 25%) #C/f Stress Cardiomyopathy - Formal TTE pending - ASA 81mg - heparin gtt - hold off on Plavix load - lasix prn for NN 500-1L - Consider ischemic workup when more stable - Mg >1, K >4 - trend troponins to peak ?? Renal/Fluids/Electrolytes: #MARILIN - Likely in setting of low perfusion state, interventions to improve her perfusion as above - Trend BMP BID to assess renal function & electrolytes ?? GI: #GERD c/b Farrell's esophagus & esophagitis - Continue home PPI 40 qd ?? Endocrine: #Insulin-dependent diabetes - Insulin gtt ?? #Metabolic acidosis - Likely in setting of shock, will trend gas ?? Hematology/oncology: #Iron deficiency anemia - Consider iron supplementation once out of critical illness - Transfuse for Hb <8 ?? #Leukocytosis - Suspect 2/2 infection vs shock state vs steroid effect - Abx as below ?? Infectious disease: #Septic shock #Bilateral airspace opacities/multifocal pneumonia - Repeat blood cultures, UA, sputum cultures - Abx: Vancomycin & zosyn - Call [facility] in AM to inquire about blood culture results #Routine Diet: NPO diet (Give Meds) DVT prophylaxis: heparin gtt GI Prophylaxis: home PPI Code Status: Attempt Cardiopulmonary Resuscitation - Inpatient Alternative Medical Decision Maker: son Jigar Streeter MD Internal Medicine, PGY-2 Cardiology [facility] #[id number] Cardiology Staff Addendum ?? Ishan Irving is a 62 y.o. female whom I saw today with Dr. Streeter. ??I have personally interviewed and examined the patient and reviewed appropriate data, including labs, ECGs, and other diagnostic studies. I agree with the principal findings documented above, with additions and exceptions as below. ??The assessment and plan were formulated in discussion with me. ?? PATIENT IS CRITICALLY ILL WITH THESE DIAGNOSES BEING MANAGED BY [facility] TEAM: #Shock, distributive/septic #Multifocal pneumonia leading to above #Acute hypoxic respiratory failure due to above #Acute on chronic HFrEF, index LVEF ~30%potential etiologies includes stress cardiomyopathy or LAD infarct, likely the former ?? Patient with chronic metabolic disease (diabetes, obesity), bipolar disorder, alcohol use disorder documented to be in remission, iron deficiency anemia, and recent L femoral neck fracture status post surgical fixation transferred for critical care management in the setting of shock, multifocal pneumonia, and a newly reduced LVEF. PE ruled out by CTA. Although ACS is possible, the patient does not have STEMI, hsTnT is flat, and the appearance of the echo, which includes LV apical dilation and akinesis, a hyperdynamic base, and RV apical akinesis would seem to favor stress cardiomyopathy. Despite low LVEF, PA cathter findings are consistent with distributive shock, only mildly elevated filling pressures. ?? Plan: -Broad spectrum abx. -Cultures. -Continue vent support. -Gentle diuresis, 500-1000 mL net over next 24 hours for preload optimization. -No emergent indication for invasive angiography, but plan for cath this admission. IS PATIENT CRITICALLY ILL? Is there a high potential of sudden, clinically significant, or life threatening deterioration? Yes Is there a need for direct personal assessment and management to treat/prevent multiple vital organfailure/deterioration? Yes TIME spent on the unit excluding procedures: 35 mins. This includes time spent during direct patient evaluation and reassessment, interpretation of diagnostic tests, and direction of life and/or organ supporting interventions. Carlos Terry MD, MARYAN, FACC, FACP, FASE Cardiovascular Medicine * Richard Alva RRT - 08/15/2022 6:00 AM EDT AMV Protocol: Yes SBT Protocol: No SBT: Not performed/Excluded: Predefined weaning plan and PEEP at 10. Vent Settings: Ventilator Mode: VC Tidal Volume Set: 360 Resp Rate Set: 20 PEEP Set: 10 FiO2: 40 % Ventilator Measurements: Resp: 20 Vt Exhaled: 360 PIP: 25 MAP: 14 Plateau Press: 20 Ve: 7.2 PEEP: 11 cmH20 SpO2: 98 % EtCO2:38 mmHg Airway: 7.0 @ 23 cm at the Teeth. Skin Integrity: WDL Chest X-Ray Endotracheal tube tip projects 3.8 cm above the consuelo. ?? Breath Sounds: Coarse Secretions: Moderate thick kirby yellow ?? Assessment / Events / Plan of the Day: 23:30 Pt received from [facility] on VC 30 270 +10 60% ARDS settings at 6 cc/kg ?? 23:57 AB.25 42 243 18 ?? 00:04 FIO2 weaned to 40% post ABG ?? Chest X-Ray looked more like pulmonary edema transition back to (8 cc/kg) on noted vent settings VC20 360 40% +10 CCS and RN aware. ?? 05:31 Repeat AB.30 41 117 20 Plan to rest on current VCV settings overnight and possible wean per protocol during day. RICHARD ALVA RRT documented in this encounter H&P Notes * Jane Rangel RN - 09/11/2022 5:37 PM EDT 1722: Ishan Irving arrived from IR in a bed to PACU 6. Pt was attached to monitors, alarms set appropriately & audible. NSR on conveyor monitor. Lungs are clear. Blood sugar 156. G tube siteis clean & dry. 1755: Report given to 1 East RN Juliette. 1800: Phase 2 criteria met. * Aron Quinones MD - 09/10/2022 8:20 AM EDT Images from the original note were not included. INTERVENTIONAL RADIOLOGY FOCUSED H&P and PRE-PROCEDURE NOTE: PCP: Chris Stanley APRN Referring Provider: Dr. Keith Planned Procedure: Planned procedure: G tube placement Procedure Indication: Dysphagia Procedure Request: Procedure request received through the Interventional Radiology eDH order queue. Presenting Diagnosis/ Complaint: Ishan Irving is a 62 y.o. female with history of left femoral neck fracture, bipolar, alcohol use disorder, chronic pancreatitis, GERD complicated by esophagitis and Farrell's esophagus admitted with mixed shock with concern for stress cardiomyopathy with dysphagia noted postintubation failing modified barium swallow tests. Patient referred for percutaneous gastrostomy catheter placement with IR after failed endoscopic attempt due to esophageal stricture. Patient has Dobbhoff catheter in place for enteral access. Past Medical/Surgical History: Patient Active Problem List Diagnosis Code ??? GERD (gastroesophageal reflux disease) K21.9 ??? Farrell's esophagus K22.70 ??? T2DM (type 2 diabetes mellitus) E11.9 ??? BMI 37.0-37.9, adult Z68.37 ??? Bipolar disorder F31.9 ??? Neuroleptic-induced parkinsonism G21.11 Past Medical History: Diagnosis Date ??? Bipolar disorder 02/12/2022 Past Surgical History: Procedure Laterality Date ??? PRO COLONOSCOPY, BIOPSY N/A 03/20/2016 COLONOSCOPY FLEXIBLE, WITH BX performed by David Dejesus MD at [facility] ??? PRO COLONOSCOPY, DIAGNOSTIC N/A 03/01/2020 COLONOSCOPY, DIAGNOSTIC performed by David Dejesus MD at [facility] ??? PRO ENDOSCOPIC US EXAM, ESOPH N/A 03/31/2022 UPPER EUS- ENDOSCOPIC ULTRASOUND performed by David Dejesus MD at [facility] ??? PRO UPPER GI ENDOSCOPY, BIOPSY N/A 04/03/2014 UPPER GASTROINTESTINAL ENDOSCOPY,WITH BIOPSY SINGLE OR MULTIPLE performed by [facility] MDat [facility] ??? PRO UPPER GI ENDOSCOPY, BIOPSY N/A 03/20/2016 EGD WITH BIOPSY performed by David Dejesus MD at [facility] ??? PRO UPPER GI ENDOSCOPY, BIOPSY N/A 11/22/2018 EGD WITH BIOPSY (WRVU 2.49) performed by David Dejesus MD at [facility] ??? PRO UPPER GI ENDOSCOPY, BIOPSY N/A 03/01/2020 UPPER GASTROINTESTINAL ENDOSCOPY,WITH BIOPSY SINGLE OR MULTIPLE (WRVU 2.49) performed by David Dejesus MD at [facility] ??? PRO UPPER GI ENDOSCOPY, BIOPSY N/A 09/23/2021 EGD WITH BIOPSY (WRVU 2.49) performed by David Dejesus MD at [facility] ??? PRO UPPER GI ENDOSCOPY, BIOPSY N/A 03/31/2022 EGD WITH BIOPSY (WRVU 2.49) performed by David Dejesus MD at [facility] ??? PRO UPPER GI ENDOSCOPY, BIOPSY N/A 07/03/2022 EGD WITH BIOPSY (WRVU 2.49) performed by David Dejesus MD at [facility] ??? PRO UPPER GI ENDOSCOPY, DIAGNOSTIC N/A 04/03/2014 EGD, UPPER GI ENDOSCOPY performed by David Dejesus MD at [facility] ??? PRO UPPER GI ENDOSCOPY, DIAGNOSTIC N/A 03/01/2020 EGD, UPPER GI ENDOSCOPY performed by David Dejesus MD at [facility] Medications: No current facility-administered medications on file prior to encounter. Current Outpatient Medications on File Prior to Encounter Medication Sig Dispense Refill ??? divalproex ER (Depakote ER) 500 mg ER 24 hr tablet Take 1,000 mg by mouth daily. Take two tablets every afternoon ??? divalproex ER (Depakote ER) 250 mg ER 24 hr tablet Take 250 mg by mouth nightly. ??? pantoprazole EC (Protonix) 40 mg Tablet, [...] Take 50 mg by mouth daily. ??? Blood Sugar [...] for dosing. 15 mL 11 ??? Insulin Sidney, Disposable, (BD INSULIN PEN NEEDLE UF MINI) 31 x 3/16 Needle 1 Device by [facility]Non-Drug; Combo Route) route 3 times daily as needed. 100 each 11 Allergies: Meperidine hcl and Metformin Social History and Habits: Social History Socioeconomic History ??? Marital status: Spouse name: Not on file ??? Number of children: Not on file ??? Years of education: Not on file ??? Highest education level: Not on file Occupational History ??? Not on file Tobacco Use ??? Smoking status: Former Years: 11. Types: Cigarettes Quit date: 02/26/2021 Years since quittin.5 ??? Smokeless tobacco: Never Substance and Sexual Activity ??? Alcohol use: Not Currently Alcohol/week: 1.0 standard drink Types: 1 Glasses of wine per week ??? Drug use: Never ??? Sexual activity: Yes Partners: Male Other Topics Concern ??? Not on file Social History Narrative ??? Not on file Social Determinants of Health Financial Resource Strain: Not on file Food Insecurity: Not on file Transportation Needs: Not on file Physical Activity: Not on file Housing Stability: Not on file Significant Family History: No family history on file. Pertinent ROS: as per HPI Labs: Lab Results Component Value Date WBC 6.9 09/09/2022 HCT 33.4 (L) 09/09/2022 PLATELET 264 09/09/2022 INR 2.0 08/15/2022 BUN 11 09/10/2022 CREATININE 0.48 (L) 09/10/2022 ALKPHOS 213 (H) 08/20/2022 AST 39 (H) 08/20/2022 ALBUMIN 2.5 (L) 08/20/2022 BILIDIR 0.1 08/20/2022 BILITOT <0.2 (L) 08/20/2022 ALT 20 08/20/2022 PROT 5.6 (L) 08/20/2022 K 3.7 09/10/2022 Imaging: Physical Exam: Pending (to be performed in angio the day of procedure) ASA: Pending (to be assessed in angio the day of procedure) Mallampati Class: Pending (to be assessed in angio the day of procedure) Assessment: 62 y.o. female with esophagitis and esophageal stricture with dysphagia status post failed attempt at endoscopic G-tube placement due to esophageal stricture referred for percutaneous gastrostomy catheter placement. Plan: Planned procedure: G tube placement Labs to be performed day of procedure: None Sedation: Anesthesia Prophylactic antibiotic : Ancef Contrast: Omnipaque Additional medications for procedure: Lidocaine Position: Supine Consent: Pending Medications to discontinue (and days held): None Case Urgency:: E- Elective IN-patient intervention within 3 days 09/10/2022 * Irwin Jones MD - 08/30/2022 10:20 AM EDT Images from the original note were not included. Inpatient Hospital Medicine Admission H&P 08/30/2022 Patient Name: ISHAN IRVING Date of : 1960 Age: 62 y.o. Hospital Admit Date: 08/14/2022 Hospital Day: 16 Inpatient Attending: Roland Pruett MD PCP: Chris Stanley APRN ([phone]) No chief complaint on file. ID: Ishan Irving is a 62 y.o. female w/ PMH of ??recent L femoral neck fracture,??bipolar disorder, resolving medication-induced Parkinsonism, insulin- dependent diabetes mellitus,??hx of alcohol use disorder (reported to be in remission for 1.5 years) c/b chronic pancreatitis, iron deficiency anemia,??GERD??c/b??esophagitis &??Farrell's esophagus, transferred from [facility] to [facility] on 08/14/2022, now on Hospital Day #16, for mixed shock with concern for stress cardiomyopathy (Takotsubo Cardiomyopathy). SUBJECTIVE History of Present Illness: Ishan Irving is a 62 y.o. female with PMH of L femoral neck fracture,??bipolar disorder, resolving medication-induced Parkinsonism, insulin- dependent diabetes mellitus,??hx of alcohol use disorder (reported to be in remission for 1.5 years) c/b chronic pancreatitis, iron deficiency anemia,?? GERD??c/b??esophagitis &??Farrell's esophagus, admitted to [facility] on 08/14/2022, now on Hospital Day #16, for for mixed shock with concern for stress cardiomyopathy (Takotsubo Cardiomyopathy). Five days prior to initial presentation, patient underwent femoral neck fracture fixation and was discharged home on opioids. Patient was found unresponsive at home and hypoxic to 70s, improved to 90s with NRB mask given by EMS. Was given narcan with minimal response. Brought to [facility] and given additional narcan with no response. OSH Labs prior to transfer to [facility] Cardiology Team: Labs: - ABG: pH 7.43, pCO2 34, pO2 68 on 4L NC - CBC: WBC 15, Hb 11, PLT 254 - BMP: Na 139, K 4.1, Cr 1.1, AST 14, ALT 13 - Cardiac: Troponin I <50, proBNP 1041, EKG sinus tachycardia - Procalcitonin: 0.5 - Infectious: Blood cultures NGTD, respiratory panel negative for Covid, Flu, RSV ?? Imaging: - CTA chest: No evidence of pulmonary embolism. Severe bilateral pneumonia. Marked diffuse esophageal wall thickening. Findings could be inflammatory however malignancy not excluded. - CT head w/o contrast: No acute intracranial findings. Patient found to have bilateral pneumonia that was initially treated with van/zosyn and later switched to cefepime and azithromycin. Patient started on CIWA protocol, had gradually worsening somnolence and concern that she would not be able to protect her airway. Patient was intubated. TTE performed and patient found to have severely reduced LF function (EF 25%), intact RV function without WMA. Patient was found to have increased troponin levels and Pro-BNP. Patient started on heparin gtt, loaded w/ASA, initiated on diuresis with lasix and transferred to [facility] on 08/14. Patient arrived to [facility] requiring approximately NE30, dobutamine 2.5, and epi 5. Patient was started on goal directed therapy with losartan, metoprolol 25mg daily, spirinolactone 25mg daily, [id number] daily and additionally started on empagliflozin 10mg daily. Patient being followed by [employer] and recommend NPO given significant dysphagia. Patient was weaned from pressors and remained hemodynamically stable. Patient transferred from Cardiology team today with ongoing concerns of dysphagia that team suspected may be related to Parkinson's. Additional history obtained from patient and at bedside reveals that dysphagia with regurgitation has been ongoing for months prior to presentation, and suspects she aspirated prior to presentation. This AM patient reports that she feels generally well with no chest pain, tamara SOB at rest, fevers, chills, myalgias, arthralgias. She notes no Parkinson's symptoms at present ( notes parkinsonian symptoms were secondary to olanzapine which patient has long since d/c-ed with no remaining tremors. Review of Systems (Positives in Bold): General: chills, fatigue, fever or night sweats Eye: blurry vision, double vision, loss of vision or photophobia HENT: headaches, sore throat or vertigo, difficulty swallowing Heme/Lymph: Bleeding/bruising, blood clots, jaundice, pallor or swollen lymph nodes Resp: cough, hemoptysis, orthopnea, shortness of breath or wheezing Cardio: chest pain, dyspnea on exertion, edema, loss of consciousness, palpitations, paroxysmal nocturnal dyspnea or shortness of breath Gastro: abdominal pain, blood in stools, constipation, diarrhea, heartburn, hematemesis, melena or nausea/vomiting : dysuria, hematuria or urinary frequency/urgency MSK: joint pain, joint stiffness, joint swelling, muscle pain or muscular weakness Neuro: dizziness, gait disturbance, impaired coordination/balance, memory loss, numbness/tingling, seizures, speech problems, tremors or visual changes Derm: lumps or rash As recorded in the EMR: Past Medical History: Past Medical History: Diagnosis Date ??? Bipolar disorder 02/12/2022 Patient Active Problem List Diagnosis Code ??? GERD (gastroesophageal reflux disease) K21.9 ??? Farrell's esophagus K22.70 ??? T2DM (type 2 diabetes mellitus) E11.9 ??? BMI 37.0-37.9, adult Z68.37 ??? Bipolar disorder F31.9 ??? Neuroleptic-induced parkinsonism G21.11 Past Surgical History: Past Surgical History: Procedure Laterality Date ??? PRO COLONOSCOPY, BIOPSY N/A 03/20/2016 COLONOSCOPY FLEXIBLE, WITH BX performed by David Dejesus MD at [facility] ??? PRO COLONOSCOPY, DIAGNOSTIC N/A 03/01/2020 COLONOSCOPY, DIAGNOSTIC performed by David Dejesus MD at [facility] ??? PRO ENDOSCOPIC US EXAM, ESOPH N/A 03/31/2022 UPPER EUS- ENDOSCOPIC ULTRASOUND performed by David Dejesus MD at [facility] ??? PRO UPPER GI ENDOSCOPY, BIOPSY N/A 04/03/2014 UPPER GASTROINTESTINAL ENDOSCOPY,WITH BIOPSY SINGLE OR MULTIPLE performed by David [facility]us MDat [facility] ??? PRO UPPER GI ENDOSCOPY, BIOPSY N/A 03/20/2016 EGD WITH BIOPSY performed by David Dejesus MD at [facility] ??? PRO UPPER GI ENDOSCOPY, BIOPSY N/A 11/22/2018 EGD WITH BIOPSY (WRVU 2.49) performed by David Dejesus MD at [facility] ??? PRO UPPER GI ENDOSCOPY, BIOPSY N/A 03/01/2020 UPPER GASTROINTESTINAL ENDOSCOPY,WITH BIOPSY SINGLE OR MULTIPLE (WRVU 2.49) performed by David Dejesus MD at [facility] ??? PRO UPPER GI ENDOSCOPY, BIOPSY N/A 09/23/2021 EGD WITH BIOPSY (WRVU 2.49) performed by David Dejesus MD at [facility] ??? PRO UPPER GI ENDOSCOPY, BIOPSY N/A 03/31/2022 EGD WITH BIOPSY (WRVU 2.49) performed by David Dejesus MD at [facility] ??? PRO UPPER GI ENDOSCOPY, BIOPSY N/A 07/03/2022 EGD WITH BIOPSY (WRVU 2.49) performed by David Dejesus MD at [facility] ??? PRO UPPER GI ENDOSCOPY, DIAGNOSTIC N/A 04/03/2014 EGD, UPPER GI ENDOSCOPY performed by David Dejesus MD at [facility] ??? PRO UPPER GI ENDOSCOPY, DIAGNOSTIC N/A 03/01/2020 EGD, UPPER GI ENDOSCOPY performed by David Dejesus MD at [facility] Social History: Social History Socioeconomic History ??? Marital status: Spouse name: Not on file ??? Number of children: Not on file ??? Years of education: Not on file ??? Highest education level: Not on file Occupational History ??? Not on file Tobacco Use ??? Smoking status: Former Years: . Types: Cigarettes Quit date: 02/26/2021 Years since quittin.5 ??? Smokeless tobacco: Never Substance and Sexual Activity ??? Alcohol use: Not Currently Alcohol/week: 1.0 standard drink Types: 1 Glasses of wine per week ??? Drug use: Never ??? Sexual activity: Yes Partners: Male Other Topics Concern ??? Not on file Social History Narrative ??? Not on file Social Determinants of Health Financial Resource Strain: Not on file Food Insecurity: Not on file Transportation Needs: Not on file Physical Activity: Not on file Housing Stability: Not on file Family History: No family history on file. Allergies: Allergies Allergen Reactions ??? Meperidine Hcl CIS - violently ill ??? Metformin Other (See Comments) Severe diarrhea Prior To Admission Medications: Medications Prior to Admission Medication Sig Dispense Refill Last Dose ??? divalproex ER (Depakote ER) 500 mg ER 24 hr tablet Take 1,000 mg by mouth daily. Take two tablets every afternoon ??? divalproex ER (Depakote ER) 250 mg ER 24 hr tablet Take 250 mg by mouth nightly. ??? pantoprazole EC (Protonix) 40 mg Tablet, [...] Take 50 mg by mouth daily. ??? Blood Sugar [...] for dosing. 15 mL 11 ??? Insulin Sidney, Disposable, (BD INSULIN PEN NEEDLE UF MINI) 31 x 3/16 Needle 1 Device by [facility].(Non-Drug; Combo Route) route 3 times daily as needed. 100 each 11 Immunizations: There is no immunization history on file for this patient. OBJECTIVE: Vitals: Last value Range last 24 hrs Temperature Temp: 36.2 ??C (97.2 ??F) Temp: [36 ??C (96.8 ??F)-36.7 ??C (98.1 ??F)] Heart Rate Heart Rate: 80 Heart Rate: [70-98] Blood Pressure BP: 95/50 BP: (95-125)/(50-61) Art Line BP BP (Arterial Line): 111/70 BP (Arterial Line): -- MAP (NBP): [62 mmHg-78 mmHg] Respiratory Rate Resp: 18 Resp: [16-18] SpO2 SpO2: 95 % SpO2: [94 %-100 %] Oxygen Delivery Oxygen Therapy O2 Device: None (Room air) O2 Flow Rate (L/min): 3 L/min FiO2 (%): 21 % Reason for Oxygen: Patient currently on room air Intake/Output Summary (Last 24 hours) at 08/30/2022 1020 Last data filed at 08/30/2022 0400 Gross per 24 hour Intake 0 ml Output 1750 ml Net -1750 ml I/O last 3 completed shifts: In: 934 [I.V.:5; NG/GT:929] Out: 1750 [Urine:1750] Last Bowel Movement: 08/29/22 Body mass index is 29.18 kg/m??. Patient Vitals for the past 168 hrs: Weight 08/30/22 0600 67.8 kg (149 lb 6.4 oz) 08/29/22 0451 70.4 kg (155 lb 3.2 oz) 08/27/22 0512 69.6 kg (153 lb 6.4 oz) 08/26/22 0500 71.5 kg (157 lb 11.2 oz) 08/25/22 0600 70 kg (154 lb 5.2 oz) 08/24/22 0500 69.3 kg (152 lb 12.5 oz) Admit wt: 69 kg Physical Exam: GENERAL: Awake, mildly somnolent, no acute distress, dobhoff in place w/well- fitting bridle HEENT: Anicteric, no conjunctival injection CV: RRR, no murmurs/rubs/gallops, 2+ radial/DP pulses PULM: Normal respiratory effort, CTA with good air entry bilaterally, coarse bibasilar breath sounds ABDOMEN: Soft, non-tender, non-distended, no masses, no guarding EXTREMITIES: No lower extremity edema. No clubbing or cyanosis PSYCH/NEURO: flattened affect and intact cognition, no tremor, minimal cogwheeling UEs SKIN: Warm, dry, no rashes LABS: CBC: Recent Labs 08/30/22 0405 08/29/22 0930 08/28/22 0700 08/27/22 0540 08/26/22 0022 WBC 7.0 7.5 9.0 9.5 8.9 HGB 8.4* 8.7* 8.6* 8.6* 8.3* HCT 27.8* 28.5* 27.4* 27.7* 26.6* PLATELET 407* 448* 464* 528* 456* NEUTROABS 4.26 5.42 5.85 6.61* 6.01 Chemistry: Recent Labs 08/30/22 0405 08/29/22 0930 08/28/22 0700 08/27/22 1800 08/27/22 1355 08/27/22 0950 08/27/22 0540 08/26/22 0022 NA 140 137 141 -- -- -- 139 137 K 4.1 4.4 4.2 4.0 4.3 < > 4.4 4.0 CL 104 103 105 -- -- -- 106 105 CO2 28 25 27 -- -- -- 27 25 BUN 19* 19* 15 -- -- -- 15 12 CREATININE 0.50* 0.47* 0.46* -- -- -- 0.44* 0.38* GLUCOSE 133 289* 113 -- -- -- 130 195 ANIONGAP 8 9 9 -- -- -- 6 7 < > = values in this interval not displayed. Recent Labs 08/30/22 0405 08/29/22 0930 08/28/22 0700 08/27/22 0540 08/26/22 0022 CALCIUM 9.4 9.2 9.4 9.3 9.0 MAGNESIUM 0.90 0.81 0.87 0.85 0.76 PHOS 3.7 3.4 4.6* 3.7 2.8 LFT's: Recent Labs 08/20/22 1400 08/15/22 0950 08/15/22 0305 BILITOT <0.2* <0.2* 0.2 BILIDIR 0.1 0.1 0.1 ALBUMIN 2.5* 2.4* 2.4* ALKPHOS 213* 102 99 ALT 20 12 13 AST 39* 21 25 Coags: No results for input(s): PT, INR, PTT, FIBRINOGEN, DDIMER in the last 168 hours. Invalid input(s): THROMBIN TIME No results for input(s): INR in the last 168 hours. Cardiac enzymes: Recent Labs 08/19/22 0120 08/14/22 2355 CK 32 -- PROBNP -- >35,000* Endocrine: Recent Labs 08/20/22 1400 08/15/22 0000 TSH 1.90 0.28 Recent Labs 08/15/22 0305 HA1C 6.2* CRP, Sed Rate Recent Labs 08/21/22 1200 CRP 19.4* SEDRATE >119* Lipids: Lab Results Component Value Date CHLPL 110 08/29/2022 HDL 34 08/29/2022 CHOLHDL 3.2 08/29/2022 TRIG 127 08/29/2022 LDLCHOL 51 08/29/2022 Heme: No results for input(s): LDH, HAPTOGLOBIN, URICACID in the last 168 hours. ABG (Arterial Blood Gas): No results found for: PHART, PO2ART, EMY1FNB, STH1EVY VBG (Venous Blood Gas): No results for input(s): PHVEN, RVV6HRA, PO2VEN, AEA2KSZ, BEVEN, JJM5QOI in the last 72 hours. EKG: Lab Results Component Value Date/Time DIAGLINE 08/16/2022 0324 Normal sinus rhythm Low voltage QRS T wave abnormality, consider inferior ischemia T wave abnormality, consider anterolateral ischemia Abnormal ECG When compared with ECG of 15-AUG-2022 07:36, No significant change was found Confirmed by MD Ty, Jagdeep Gamble ([id number]) on 08/16/2022 11:52:27 AM QTCCALC 454 08/16/2022 0324 Vascular: No results found for: VBTEXTRPT Microbiology: Date Type Result Lab Results Component Value Date/Time URINECULTURE 1,000-9,000 cfu/ml Insignificant growth 08/15/2022 1225 Lab Results Component Value Date/Time GRAMSTAIN 08/21/2022 1650 Few Neutrophils seen No squamous epithelial cells seen No microorganisms seen. GRAMSTAIN 08/21/2022 1645 Moderate Neutrophils seen No squamous epithelial cells seen No microorganisms seen. GRAMSTAIN 08/19/2022 1451 Many Neutrophils seen Few squamous epithelial cells seen No microorganisms seen. LOWERRESPCX 08/21/2022 1650 Rare mixed bacterial morphotypes suggestive of normal upper respiratory wiley Lab Results Component Value Date/Time BLOODCX No growth at 5 days. 08/19/2022 1720 BLOODCX No growth at 5 days. 08/19/2022 1330 BLOODCX No growth at 5 days. 08/15/2022 0110 BLOODCX No growth at 5 days. 08/14/2022 2355 Imaging/Diagnostics: Results for orders placed or performed during the hospital encounter of 08/14/22 XR Chest One View (Exam End: 08/15/2022 1:00 AM) Impression FINDINGS/IMPRESSION: * Moderate pulmonary edema. * No confluent airspace opacity otherwise seen. * Cannot exclude small pleural effusions. * Cardiomediastinal contours appear within normal limits. * Endotracheal tube tip projects 3.8 cm above the consuelo. * RIGHT neck central catheter, distal catheter coiled over the region of the RIGHT ventricle and pulmonary trunk. Thank you for letting us participate in the care of this patient. If you are a health care provider and have any questions regarding this report, please contact the number below. For patients who have questions please contact the health acute care physician that requested your imaging first. Abdomen 1 view (Generic) (Exam End: 08/15/2022 8:33 AM) Impression The enteric tube sidehole is not definitively subdiaphragmatic. Recommend advancement. Preliminary report signed by: Carlos Wolff at 08/15/2022 9:00 AM I have personally reviewed the image(s) and the resident's interpretation and agree with the findings, Liliane Adams MD at 08/15/2022 9:05 AM Thank you for letting us participate in the care of this patient. If you are a health care provider and have any questions regarding this report, please contact the number below. For patients who have questions please contact the health acute care physician that requested your imaging first. Electronically signed by: Liliane Adams MD, [facility] ([phone]), at 08/15/2022 9:05 AM XR Chest One View (Exam End: 08/15/2022 1:14 AM) Impression FINDINGS/IMPRESSION: * RIGHT neck central catheter redemonstrated terminating over the region of the pulmonary trunk, now uncoiled distally although the tip is looped. * Moderate pulmonary edema redemonstrated. * ET tube projects similar. Thank you for letting us participate in the care of this patient. If you are a health care provider and have any questions regarding this report, please contact the number below. For patients who have questions please contact the health acute care physician that requested your imaging first. Abdomen 1 view (Generic) (Exam End: 08/15/2022 6:38 AM) Impression Nonspecific/nondiagnostic appearance of the abdomen, with large stool burden in the RIGHT hemiabdomen and pelvis. Thank you for letting us participate in the care of this patient. If you are a health care provider and have any questions regarding this report, please contact the number below. For patients who have questions please contact the health acute care physician that requested your imaging first. Chest One View (Exam End: 08/16/2022 10:31 AM) Impression PA catheter has a persistent loop near the tip, similar to the prior comparison study. Improved pulmonary edema. Thank you for letting us participate in the care of this patient. If you are a health care provider and have any questions regarding this report, please contact the number below. For patients who have questions please contact the health acute care physician that requested your imaging first. Electronically signed by: Alfonso Adams MD, [facility] ([phone]), at 08/16/2022 10:[address] Head wo Contrast (Generic) (Exam End: 08/16/2022 10:44 PM) Impression No acute intracranial abnormality and no change from prior Thank you for letting us participate in the care of this patient. If you are a health care provider and have any questions regarding this report, please contact the number below. For patients who have questions please contact the health acute care physician that requested your imaging first. Electronically signed by: Moustapha Correa MD, [facility] ([phone]), at 08/16/2022 11:19 PM XR Abdomen 1 view (Generic) (Exam End: 08/17/2022 12:09 PM) Impression Status post Dobbhoff tube placement with catheter tip terminating at the approximate position of greater curvature. I have personally reviewed the image(s) and the resident's interpretation and agree with the findings, Jenn Pina MD at 08/17/2022 2:31 PM Thank you for letting us participate in the care of this patient. If you are a health care provider and have any questions regarding this report, please contact the number below. For patients who have questions please contact the health acute care physician that requested your imaging first. Head wo Contrast (Generic) (Exam End: 08/18/2022 3:14 PM) Impression No acute intracranial process. Thank you for letting us participate in the care of this patient. If you are a health care provider and have any questions regarding this report, please contact the number below. For patients who have questions please contact the health acute care physician that requested your imaging first. Electronically signed by: Antonio Jordan MD, [facility] ([phone]), at 08/18/2022 3:18 PM XR Chest One View (Exam End: 08/19/2022 12:30 PM) Impression 1. Increased bibasilar airspace opacities compared to radiograph 08/16/2022, concerning for an infectious/inflammatory process. A component of edema not excluded. 2. Overall decreased pulmonary edema. I have personally reviewed the image(s) and the resident's interpretation and agree with the findings, Alan De Guzman MD at 08/19/2022 3:14 PM Thank you for letting us participate in the care of this patient. If you are a health care provider and have any questions regarding this report, please contact the number below. For patients who have questions please contact the health acute care physician that requested your imaging first. Electronically signed by: Alan De Guzman MD, [facility] ([phone]), at 08/19/2022 3:14 PM MRI Brain wo Contrast (Exam End: 08/19/2022 10:15 PM) Impression No acute infarction, mass or mass effect. Thank you for letting us participate in the care of this patient. If you are a health care provider and have any questions regarding this report, please contact the number below. For patients who have questions please contact the health acute care physician that requested your imaging first. Chest for Verifying Vascular Access PICC Placement At Bedside (Exam End: 08/19/2022 4:36 PM) Impression PICC tip is in the superior vena cava above the right atrium. Thank you for letting us participate in the care of this patient. If you are a health care provider and have any questions regarding this report, please contact the number below. For patients who have questions please contact the health acute care physician that requested your imaging first. Electronically signed by: Alan De Guzman MD, [facility] ([phone]), at 08/19/2022 4:[address] Hip w Contrast Left (Exam End: 08/20/2022 11:04 PM) Impression 1. Uncomplicated left femoral neck ORIF with unchanged postoperative alignment. 2. Moderate skin thickening and subcutaneous stranding about the lateral left hip with lateral left thigh intramuscular edema and fascial thickening. These findings are nonspecific and may be seen in the routine postoperative setting. Underlying soft tissue infection with infectious or inflammatory myositis may also have this appearance. Correlation with physical examination, clinical symptoms, and laboratory findings is recommended. 3. 2.3 x 1.6 x 1.8 cm focus of more coalescent fluid attenuation centered in the subcutaneous fat of the posterolateral thigh roughly at the level of the proximal femoral fixation screw heads. There is no rim-enhancing to suggest a mature, organized abscess at this time. However, this finding could represent phlegmon in appropriate clinical context, or it could represent a postsurgical collection, the contents of which may be sterile or infected. 4. There is a rectal tube in place. However, there remains a large stool ball in the rectum with free fluid versus coalescent edema on both the anterior and posterior margins of the distended rectum. In appropriate clinical context, these findings could represent proctocolitis or stercoral colitis. I have personally reviewed the image(s) and the resident's interpretation and agree with the findings, Aicha Chowdhury MD at 08/21/2022 9:34 AM Thank you for letting us participate in the care of this patient. If you are a health care provider and have any questions regarding this report, please contact the number below. For patients who have questions please contact the health acute care physician that requested your imaging first. Electronically signed by: Aicha Chowdhury MD, [facility] ([phone]), at 08/21/2022 9:[address] Chest w Contrast (Exam End: 08/20/2022 11:04 PM) Impression 1. Multifocal lower lobe predominant consolidative opacities with additional upper lobe opacities consistent with multifocal pneumonia. Compared to the prior CT of 08/12/2022 the number and size of the opacities has decreased. Recommend follow-up imaging in 3-6 months to document complete resolution. 2. New small, sub-1 cm early cavitation of multiple opacities predominantly within the posterior left upper lobe and left lower lobe. 3. New curvilinear splenic lesions could represent infarct versus late arterial phase splenic arterial opacification. Thank you for letting us participate in the care of this patient. If you are a health care provider and have any questions regarding this report, please contact the number below. For patients who have questions please contact the health acute care physician that requested your imaging first. Hip 2-3 Views Left (Exam End: 08/22/2022 12:19 AM) Impression No radiographic evidence of infection. Thank you for letting us participate in the care of this patient. If you are a health care provider and have any questions regarding this report, please contact the number below. For patients who have questions please contact the health acute care physician that requested your imaging first. Electronically signed by: Viktor Cervantes MD, [facility] ([phone]), at 08/22/2022 12:43 PM XR Pelvis (Generic) (Exam End: 08/22/2022 12:19 AM) Impression No radiographic evidence of infection status post left hip ORIF. Thank you for letting us participate in the care of this patient. If you are a health care provider and have any questions regarding this report, please contact the number below. For patients who have questions please contact the health acute care physician that requested your imaging first. Electronically signed by: Richard Billings MD, [facility] ([phone]), at 08/22/2022 10:[address] Angiogram Coronary Arteries (Exam End: 08/27/2022 8:58 AM) Impression Coronary calcium score of 0, consistent with no detectable calcified atherosclerotic plaque burden. No evidence of stenosing soft plaque on the coronary CT arteriogram. CAD RADS 0 Ongoing bilateral pulmonary infectious/inflammatory changes with persistent consolidative opacity especially in the left lower lobe. This could represent a multifocal pneumonia. Recommend follow-up CT in 3 months to assess for resolution. Thank you for letting us participate in the care of this patient. If you are a health care provider and have any questions regarding this report, please contact the number below. For patients who have questions please contact the health acute care physician that requested your imaging first. Electronically signed by: Arlette Mays MD, [facility] ([phone]), at 08/27/2022 11:[address] Chest wo Contrast (Generic) (Exam End: 08/27/2022 8:58 AM) Impression Stable findings of multifocal pneumonia. No interval abnormality. Thank you for letting us participate in the care of this patient. If you are a health care provider and have any questions regarding this report, please contact the number below. For patients who have questions please contact the health acute care physician that requested your imaging first. Electronically signed by: MINH QUIROGA MD, [facility] ([phone]), at 08/27/2022 10:48 AM Medications: Scheduled: ??? insulin glargine (Lantus;Semglee) (100 unit/mL) subcutaneous injection 23 Units Subcutaneous Daily ??? sacubitriL-valsartan 1 tablet Oral BID ??? empagliflozin 10 mg Oral Daily ??? insulin lispro protamine-insulin lispro 75/25 30 Units Subcutaneous Daily ??? valproic acid 300 mg Per NG tube Q6H ??? metoprolol succinate XL 25 mg Oral Daily ??? spironolactone 12.5 mg Oral Daily ??? QUEtiapine 100 mg Oral Nightly ??? lidocaine 3 patch Transdermal Q24H ??? insulin lispro 1-5 Units Subcutaneous Q4H LAZARUS ??? ergocalciferoL (vitamin D2) 50,000 Units Per NG tube Weekly ??? enoxaparin 40 mg Subcutaneous Daily ??? atorvastatin 80 mg Per NG tube QPM ??? folic acid 1,000 mcg Per NG tube Daily ??? ferrous sulfate 300 mg Per NG tube Every Other Day ??? chlorhexidine 15 mL Oral BID ??? pantoprazole 40 mg Intravenous BID ??? sodium chloride 0.9 % (flush) 5 mL Intravenous BID ??? acetaminophen 1,000 mg Oral Q8H LAZARUS ??? thiamine 100 mg Intravenous Daily Continuous: ??? tube feeding diet 1,176 mL (08/30/22 0603) PRN: ondansetron, iohexoL, melatonin, polyethylene glycoL, senna, bisacodyL, potassium chloride in water OR potassium chloride in water OR potassium chloride in water, sodium chloride 0.9 % (flush), lidocaine, nitroGLYcerin, glucose 40% oral geL OR dextrose 10% OR glucagon ASSESSMENT and PLAN: Ishan Irving is a 62 y.o. female w/ PMH of insulin-dependent diabetes mellitus, bipolar disorder, alcohol use disorder in remission (1.5 years), iron deficiency anemia, GERD??c/b??esophagitis&??Farrell's esophagus, and recent L femoral neck fracture s/p surgical fixation , admitted to [facility] on 08/14/2022, now on Hospital Day #16, for mixed shock with concern for stress cardiomyopathy (Ta kotsubo Cardiomyopathy). 08/30 Patient is hemodynamically stable and seemingly markedly improved clinically versus time of presentation. From a cardiac standpoint, patient is stabilized, may consider repeat TTE prior to discharge to further evaluate degree of recovery from stress cardiomyopathy. In the meantime, patient's largest gordon to discharge home is likely her marked dysphagia and regurgitation which sounds to have been present for some time prior to presentation and may have been the underlying factor that ultimately precipitated her aspiration pneumonia and resulting stress cardiomyopathy. Will plan for further workup with MBS. Changes for Today: - Continue tube feeds, NPO - MBS - discontinue spirinolactone for now, cannot be used w/feeding tube - transition metoprolol to tartrate BID as succinate cannot be crushed Neuro: # Bipolar Disorder - Depakote 300 mg oral liquid per Dobhoff tube q6hr. - Continue Seroquel 100mg nightly - Will check VPA trough level 08/29. - level 25mg/L 08/29 - G[employer] SUPERVISOR to evaluate. - Reach out to neurology, psychiatry regarding medication regimen and parkinsonism. ?? Pulmonary: # Acute hypoxic respiratory failure, resolved. # Bilateral airspace opacities/multifocal pneumonia -??Respiratory support with LFNC PRN; currently on RA - Antibiotics: zosyn, stopped per ID - Fungitell and Fungal Cx positive, no change in management at this time per ID - CT Chest showing persistent pneumonia; appreciate ID assistance. ?? Cardiac: # Distributive Shock # NSTEMI Type I vs Type II # HFrEF (EF 25%) # C/f Stress Cardiomyopathy - Will not perform LHC given results of CTA coronary arteries. - ASA 81mg, Plavix 75mg, stopped today given low suspicion for CAD. - Continue Losartan 25mg daily - Continue Metoprolol Tartrate 25mg QD - Spironolactone 12.5mg QD. - Start entresto 24-26mg today. - Start empagliflozin 10mg today. - Continue Lovenox - Mg >1, K >4 ?? GI: # GERD c/b Farrell's esophagus & esophagitis # Constipation- resolved # Rectal wall edema 2/2 stool ball - Has Miralax, senna, dulcolax PRN ordered - Continue home pantoprazole 40 BID ?? Endocrine: # Insulin-dependent diabetes -??Diabetes Management consulted, appreciate recs - Continue Glargine 23u daily - Humalog 75/25 30 units before tube feeds. - Moderate SSI ?? Hematology/oncology: # Mixed JERRICA and ACD - Oral iron supplementation started 08/21. - Ferritin, Iron, TIBC resulted; mixed picture - Transfuse for Hb <8 - S/p 1u pRBC 08/22 ?? Infectious disease:?? # Septic shock # Bilateral airspace opacities/multifocal pneumonia # L Hip Fluid Collection # Subcentimeter left posterior upper lobe cavitary lesions - Infectious work-up has not yielded any organisms - S/p BAL 08/21 without any growth to date. - IR, orthopedic surgery consulted for evaluation of L hip fluid collection. No intervention/drainable target. - Stopped zosyn as per ID (08/14- 08/23) - Fungal testing positive no change in management at this time per ID ?? #Housekeeping: DVT PPx: LMWH SCD GI PPx: Diet: Sips and Chips (Give Meds) Lines: PICC Line - Double Lumen 08/19/22 1655 basilic vein (medial side of arm), right 5 Fr (Active) Number of days: 10 D/c planning: TBD pending clinical course Code status: Attempt Cardiopulmonary Resuscitation - Inpatient Irwin Jones MD Internal Medicine PGY1 Medicine Team: [place], Pager #[phone] Date: 08/30/2022 Associated attestation - Alfonso Navarrete MD - 08/30/2022 9:19 PM EDT [address] Medicine Service Attending Documentation I certify that the patient requires: [X] inpatient care status due to stress cardiomyopathy and dysphagia requiring tube feeds Please see Dr. Jones's note for details of the patient history of presentation and data. I have discussed, reviewed and agree with the documented History, Physical findings, Assessment and Plan ofcare. I have examined the patient myself and personally reviewed all studies. Additions to the history, physical, assessment and plan include the following: #progressive dysphagia and inability to maintain PO intake -continue tube feeds via DHT -plan for [employer] SUPER[employer]OR evaluation and MBS tomorrow #stress cardiomyopathy -holding spironolactone as it cannot be crushed -continue empagliflozin, metoprolol, losartan and entresto -follow volume status and renal function * Yoselin Ghosh PA - 08/21/2022 12:56 PM EDT Images from the original note were not included. Interventional Radiology Focused Pre-procedure H&P: PCP: Chris Stanley APRN Referring Provider: Niurka Ayala Planned procedure: Left hip aspiration Procedure indication: Left hip fluid collection, fever, leukocytosis IR workflow: Procedure request received through Interventional Radiology eDH order queue. There are no answered order specific questions. History of Present Illness: Per chart review, Ishan Irving is a 62 y.o. female with PMH of recent L femoral neck fracture s/p L hip ORIF at OSH 2 weeks ago currently admitted to ICU for mixedshock with concern for stress cardiomyopathy with leukocytosis, fever and CT L hip 08/20 showing possible phlegmon vs postsurgical fluid collection who presents to Interventional Radiology to undergo L hip aspiration. Patient is intubated. Case discussed with IR doctor of the day, Dr. Flores. IR will attempt at bedside. There is a possibility there is no fluid collection. Remainder of patient's medical and surgical history, allergies, medications, and social/family history obtained below as previously outlined in patient's medical record. IR History: No prior procedures. Imagin08/20/22 Assessment: 62 y.o. female with possible L hip fluid collection presenting to Interventional Radiology for L hip aspiration. Plan Planned procedure: Left hip aspiration Labs to be performed day of procedure: No labs Sedation: No Sedation Prophylactic antibiotic : None Contrast: No contrast Additional medications for procedure: Lidocaine Position: Supine Consent: Pending Medications to discontinue (and days held): None Cytopathology presence needed: No Case Urgency:: D- Intervention within 24 hrs Labs: Lab Results Component Value Date HGB 7.4 (L) 08/21/2022 HCT 24.2 (L) 08/21/2022 WBC 20.9 (H) 08/21/2022 PLATELET 381 (H) 08/21/2022 INR 2.0 08/15/2022 BUN 22 (H) 08/21/2022 CREATININE 0.60 (L) 08/21/2022 ALBUMIN 2.5 (L) 08/20/2022 BILIDIR 0.1 08/20/2022 BILITOT <0.2 (L) 08/20/2022 AST 39 (H) 08/20/2022 ALT 20 08/20/2022 ALKPHOS 213 (H) 08/20/2022 Allergies: Meperidine hcl and Metformin Medications: No current facility-administered medications on file prior [...] for dosing. 15 mL 11 ??? Insulin Sidney, Disposable, (BD INSULIN PEN NEEDLE UF MINI) 31 x 3/16 Needle 1 Device by Mis.(Non-Drug; Combo Route) route 3 times daily as needed. 100 each 11 Past Medical/Surgical history: Patient Active Problem List Diagnosis Code ??? GERD (gastroesophageal reflux disease) K21.9 ??? Farrell's esophagus K22.70 ??? T2DM (type 2 diabetes mellitus) E11.9 ??? BMI 37.0-37.9, adult Z68.37 ??? Bipolar disorder F31.9 ??? Neuroleptic-induced parkinsonism G21.11 ??? Shock R57.9 Past Medical History: Diagnosis Date ??? Bipolar disorder 02/12/2022 Past Surgical History: Procedure Laterality Date ??? PRO COLONOSCOPY, BIOPSY N/A 03/20/2016 COLONOSCOPY FLEXIBLE, WITH BX performed by David Dejesus MD at [facility] ??? PRO COLONOSCOPY, DIAGNOSTIC N/A 03/01/2020 COLONOSCOPY, DIAGNOSTIC performed by David Dejesus MD at [facility] ??? PRO ENDOSCOPIC US EXAM, ESOPH N/A 03/31/2022 UPPER EUS- ENDOSCOPIC ULTRASOUND performed by David Dejesus MD at [facility] ??? PRO UPPER GI ENDOSCOPY, BIOPSY N/A 04/03/2014 UPPER GASTROINTESTINAL ENDOSCOPY,WITH BIOPSY SINGLE OR MULTIPLE performed by David [facility]jesus MDat [facility] ??? PRO UPPER GI ENDOSCOPY, BIOPSY N/A 03/20/2016 EGD WITH BIOPSY performed by David Dejesus MD at [facility] ??? PRO UPPER GI ENDOSCOPY, BIOPSY N/A 11/22/2018 EGD WITH BIOPSY (WRVU 2.49) performed by David Dejesus MD at [facility] ??? PRO UPPER GI ENDOSCOPY, BIOPSY N/A 03/01/2020 UPPER GASTROINTESTINAL ENDOSCOPY,WITH BIOPSY SINGLE OR MULTIPLE (WRVU 2.49) performed by David Dejesus MD at [facility] ??? PRO UPPER GI ENDOSCOPY, BIOPSY N/A 09/23/2021 EGD WITH BIOPSY (WRVU 2.49) performed by David Dejesus MD at [facility] ??? PRO UPPER GI ENDOSCOPY, BIOPSY N/A 03/31/2022 EGD WITH BIOPSY (WRVU 2.49) performed by David Dejesus MD at [facility] ??? PRO UPPER GI ENDOSCOPY, BIOPSY N/A 07/03/2022 EGD WITH BIOPSY (WRVU 2.49) performed by David Dejesus MD at [facility] ??? PRO UPPER GI ENDOSCOPY, DIAGNOSTIC N/A 04/03/2014 EGD, UPPER GI ENDOSCOPY performed by David Dejesus MD at [facility] ??? PRO UPPER GI ENDOSCOPY, DIAGNOSTIC N/A 03/01/2020 EGD, UPPER GI ENDOSCOPY performed by David Dejesus MD at [facility] Social History and Habits: Social History Tobacco Use ??? Smoking status: Former Years: 11. Types: Cigarettes Quit date: 02/26/2021 Years since quittin.4 ??? Smokeless tobacco: Never Substance Use Topics ??? Alcohol use: Not Currently Alcohol/week: 1.0 standard drink Types: 1 Glasses of wine per week ??? Drug use: Never Significant Family History: No family history on file. Pertinent ROS: as per HPI Physical Exam: Pending (to be performed in IR the day of procedure) ASA: Pending (to be assessed in IR the day of procedure) Mallampati class: Pending (to be assessed in IR the day of procedure) 08/21/2022 Yoselin Ghosh PA-C * Carlos Terry MD - 08/15/2022 12:13 AM EDT Images from the original note were not included. Cardiology H&P Patient info: Name: Ishan Irving : 1960 PCP: Chris Stanley APRN PCP phone number: [phone] Date of Admission: 08/14/2022 ( Hospital Day 1 day ) Attending:Carlos Terry MD ID: Ishan Irving is a 62 year old female with a medical history notable for recent L femoral neck fracture, bipolar disorder, resolving medication- induced Parkinsonism, insulin-dependent diabetes mellitus, hx of alcohol use disorder (reported to be in remission for 1.5 years) c/b chronic pancreatitis, iron deficiency anemia, GERD c/b esophagitis & Farrell's esophagus presenting in transfer from [facility], suspected to be in cardiogenic shock. Ms. Irving underwent operative fixation of a left femoral neck fracture five days prior, for which she was given opiates for pain control. Per report from , the patient has not been takingthese. The patient was found to be unresponsive at home, therefore prompting EMS call by her . Given her recent prescription of opiates, that patient was given NRcan with mild improvement in her mental status. She was hemodynamically stable but hypoxic to 70s, which improved to 90s on a non-rebreather mask, which was consequently de- escalated to 4L NC. On arrival to [facility], the patient was given further doses of narcan without significant effect on her mental status. OSH workup: Labs: - ABG: pH 7.43, pCO2 34, pO2 68 on 4L NC - CBC: WBC 15, Hb 11, PLT 254 - BMP: Na 139, K 4.1, Cr 1.1, AST 14, ALT 13 - Cardiac: Troponin I <50, proBNP 1041, EKG sinus tachycardia - Procalcitonin: 0.5 - Infectious: Blood cultures NGTD, respiratory panel negative for Covid, Flu, RSV Imaging: - CTA chest: No evidence of pulmonary embolism. Severe bilateral pneumonia. Marked diffuse esophageal wall thickening. Findings could be inflammatory however malignancy not excluded. - CT head w/o contrast: No acute intracranial findings. The patient was initially treated for pneumonia w/ vancomycin & zosyn (later switched to cefepime & azithromycin), steroids (solumedrol -> hydrocortisone) as well as lorazepam CIAL scale for potential alcohol withdrawal. However, over the course of two days, her respiratory status continued to worsen, eventually requiring today. There were increasing concerns over the patient's abilityto protect her airway, given her periods of somnolence & agitation as well as her worsening hypoxia, and therefore the patient was intubated. TTE performed demonstrated severely reduced LV function EF 25%), with intact RV function without WMA. On recheck, her EKG did not demonstrate any ST or T-wave changes, however troponin-I levels had now increased 1686 & pro-BNP >25k. She was started on a heparin gtt, loaded w/ ASA 300 mg, initiated on IV diuresis (80 lasix) & dobutamine withconsequent transfer to [facility]. On arrival, the patient was requiring requiring roughly NE 30, dobutamine 2.5, and epinephrine of 5. Objective: Vitals Last value Range last 24 hrs Temperature Temp: 37.1 ??C (98.8 ??F) Temp: [37.1 ??C (98.8 ??F)] Heart Rate Heart Rate: (!) 120 Heart Rate: [118-120] Blood Pressure BP: (!) 89/73 BP: (75-97)/(58-73) Art Line BP BP (Arterial Line): 99/54 BP (Arterial Line): (99)/(54) MAP (NBP): [65 mmHg-80 mmHg] Respiratory Rate Resp: 30 Resp: [18-34] SpO2 SpO2: 98 % SpO2: [85 %-100 %] Oxygen Delivery Oxygen Therapy O2 Device: Ventilator FiO2 (%): 40 % Vasoactive medications: NE 30, dobutamine 2.5, epi 5 Sedation/analgesia: Propofol, fentanyl 50 Hemodynamics: CVP 13, CI 2.6, CO 4.4, SVR 1106, Svo2 63 Intake/Output Summary (Last 24 hours) at 08/15/2022 0114 Last data filed at 08/14/2022 2300 Gross per 24 hour Intake -- Output 200 ml Net -200 ml Patient Vitals for the past 168 hrs: Weight 08/14/22 2322 69 kg (152 lb 1.9 oz) Admit wt: 69 kg Physical Exam: Gen: Intubated, critically-ill appearing woman. CV: Tachycardic, no murmurs or gallops noted. Resp: Ventilated breath sounds with rhonchi bilaterally Abd: BS+, no rebound tenderness Ext: 2+ distal pulses, no pedal edema. Feet cool to touch. Neuro: RASS -5 Lines/Drains/Airways Lines: [place], A line, central line EKG (08/15/22): Sinus tachycardia, no significant ST or T wave changes noted. Labs: Recent Labs 08/14/22 2355 WBC 36.7* HGB 10.7* HCT 35.9 PLATELET 370* MCV 68.0* Recent Labs 08/14/22 2355 NA 141 CL 107 CO2 17* K 4.0 MAGNESIUM 0.97 PHOS 5.9* CALCIUM 8.5 BUN 36* CREATININE 1.40* LFTs No results for input(s): PROT, ALBUMIN, AST, ALT, ALKPHOS, BILITOT, BILIDIR in the last 168 hours. Coags Recent Labs 08/15/22 0000 INR 2.0 PT 22.3* PTT 154* Cardiac Enzymes Recent Labs 08/14/22 2355 PROBNP >35,000* Endocrine No results for input(s): TSH, CORTISOL in the last 7068 hours. Invalid input(s): [id number] No results for input(s): POCGLU in the last 168 hours. Heme No results for input(s): LDH, HAPTOGLOBIN, URICACID in the last 168 hours. ABG (Arterial Blood Gas) No results found for: PHART, PO2ART, GNH1EQP, OLB5KIU Microbiology: Microbiology Results (Last 30 days) No results found for the last 720 hours. Imaging: No results found for this visit on 08/14/22. Medications Scheduled Meds: divalproex, folic acid, PPI 40, zosyn, vanc, thiamine Continuous Infusions: Heparin gtt, NE, Epi, dobutamine, fentanyl, propofol Assessment & Plan: Ms. Irving is a 62 year old female with a medical history notable for insulin-dependent diabetes mellitus, bipolar disorder, alcohol use disorder in remission, iron deficiency anemia, and recent L femoral neck fracture s/p surgical fixation presenting in transfer with acute hypoxic respiratory failure, pneumonia, and newfound heart failure. Between pneumonia and heart failure, it remains unclear which is leading to her current presentation. Given chart review and the patients story, it is very possible that her respiratory failure is due to a combination of both infiltrative process/pneumonia as well as more likely a volume-overloaded state. While her EKG was without signs of ischemia and her initial troponin was negative, she did have an elevated pro-BNP to 1000s on presentation, suggestive of heart failure at a baseline on presentation. She did undergo infectious workup which was negative to date, including blood cultures, however her CT was reported/interpreted as multifocal pneumonia, and in a patient found down, aspiration is a concern. Therefore will continue to broadly cover for now w/ vanc & zosyn. Her more recent increase in troponin & pro-BNP may represent a type II NSTEMI, as her EKG continues to demonstrate a lack of ST or T wave changes suggestive of a type I NSTEMI. However, given the level of elevation of her troponin and acute increase in her pro-BNP, will treat as type I NSTEMI until proven otherwise. Patient will likely need ischemic workup in the near future when more stable. Her situation additionally warrants formal echocardiogram to bettercharacterize her cardiac function, as well as needs inotrope-assisted diuresis, coverage for sepsis/pneumonia, and potential ischemic workup when she is more stable. Remainder of plan as below: Neuro: #Sedation/analgesia - Propofol & fentanyl #Hx of alcohol use disorder - Little clinical concern for current withdrawal, however on propofol so minimal/no risk of withdrawal Pulmonary: #Acute hypoxic respiratory failure #Bilateral airspace opacities/multifocal pneumonia - Mechanical ventilation, ARDSnet protocol - Antibiotics: Vancomycin & zosyn; pending MRSA swab, discontinue vancomycin - Diuresis as below Cardiac: #Suspect mixed cardiogenic/septic shock #NSTEMI #HFrEF (EF 25%) - Formal TTE in AM - NSTEMI: Load w/ clopidogrel 300 mg (s/p ASA load), then ASA 81 & clopidogrel 75 qd; continue heparin gtt - HF/cardiogenic shock: Preload reduction: IV lasix 80 mg bolus, lasix gtt at 10 mg/hr Inotropic support: Dobutamine (wean off), epinephrine w/ MAP goal >65; consider balloon pump if hemodynamics demonstrate significant cardiogenic shock Afterload reduction: On hold due to mixed shock picture (w/ exception of dobutamine effect) until further stabilization of her BP (currently on NE titrated to MAP >65) - Consider ischemic workup when more stable - Mg >1, K >4 Renal/Fluids/Electrolytes: #MARILIN - Likely in setting of low perfusion state, interventions to improve her perfusion as above - Trend BMP BID to assess renal function & electrolytes GI: #GERD c/b Farrell's esophagus & esophagitis - Continue home PPI 40 qd Endocrine: #Insulin-dependent diabetes - Insulin gtt #Metabolic acidosis - Likely in setting of shock, will trend gas Hematology/oncology: #Iron deficiency anemia - Consider iron supplementation once out of critical illness - Transfuse for Hb <8 #Leukocytosis - Suspect 2/2 infection vs shock state vs steroid effect - Abx as below Infectious disease: #Septic shock #Bilateral airspace opacities/multifocal pneumonia - Repeat blood cultures, UA, sputum cultures - Abx: Vancomycin & zosyn - Call [facility] in AM to inquire about blood culture results #Routine Diet: NPO diet (Give Meds) DVT Prophylaxis: Heparin gtt GI Prophylaxis: PPI 40 qd Code Status: Attempt Cardiopulmonary Resuscitation - Inpatient; update Dispo: Pending clinical course Tyler Cobb MD Internal Medicine, PGY-2 [facility] 08/15/22 1:14 AM Cardiology Staff Addendum Ishan Irving is a 62 y.o. female whom I saw today with Dr. Cobb. I have personally interviewed and examined the patient and reviewed appropriate data, including labs, ECGs, and other diagnostic studies. I agree with the principal findings documented above, with additions and exceptions asbelow. The assessment and plan were formulated in discussion with me. Assessment: #Shock, distributive/septic #Multifocal pneumonia leading to above #Acute hypoxic respiratory failure due to above #Acute on chronic HFrEF, index LVEF ~30%potential etiologies includes stress cardiomyopathy or LAD infarct, likely the former Patient with chronic metabolic disease (diabetes, obesity), bipolar disorder, alcohol use disorder documented to be in remission, iron deficiency anemia, and recent L femoral neck fracture status post surgical fixation transferred for critical care management in the setting of shock, multifocal pneumonia, and a newly reduced LVEF. PE ruled out by CTA. Although ACS is possible, the patient does not have STEMI, hsTnT is flat, and the appearance of the echo, which includes LV apical dilation and akinesis, a hyperdynamic base, and RV apical akinesis would seem to favor stress cardiomyopathy. Despite low LVEF, PA cathter findings are consistent with distributive shock, only mildly elevated filling pressures. Plan: -Broad spectrum abx. -Cultures. -Continue vent support. -Gentle diuresis, 500-1000 mL net over next 24 hours for preload optimization. -No emergent indication for invasive angiography, but plan for cath this admission. Carlos Terry MD, MARYAN, FACC, FACP, [facility] Cardiovascular Medicine documented in this encounter Procedure Notes * Moustapha Hart MD - 09/11/2022 5:12 PM EDT IR PROCEDURE NOTE Procedure: Gastrostomy tube placement. Indication for Procedure:Per Ishan Zarate Aristides is a 62 y.o. female with history of left femoral neck fracture, bipolar, alcohol use disorder, chronic pancreatitis, GERD complicated by esophagitis and Farrell's esophagus admitted with mixed shock with concern for stress cardiomyopathy with dysphagia noted postintubation failing modified barium swallow tests. Patient referred for percutaneous gastrostomy catheter placement with IR after failed endoscopic attempt due to esophageal stricture. Procedure events and findings: Patient was positioned supine on the procedure table under anesthesia. Prophylactic antibiotic Ancef 2g IV was administered. The epigastrium was prepared in sterile fashion after U/S to determine the left lateral and caudal extent of the liver. Maximum sterile barriertechnique was used throughout. A 4 Bulgarian glide catheter was placed as a nasoenteric tube under fluoroscopy with the aid of a Glidewire. Catheter was used for insufflation of the stomach. The skin over the stomach was infiltrated with 1% lidocaine for local anesthesia. An 18 ga needle was advanced under fluoroscopic guidance into the stomach with return of air and contrast injection showing gastric folds. A T anchor was deployed. Two additional T anchors were placed in the same manner. In the triangle formed by the T anchors, an 18ga needle was directed into the gastric lumen, confirmed with aspiration and contrast injection. Over an 0.035?? guidewire, the tract was dilated using an 8 mm angioplasty balloon. A 16 Fr balloon retained gastrostomy tube was then placed. The retention balloon of the gastrostomy tube was filled with 5 cc of sterile water and contrast injection via the gastrostomy tube confirmed location within the gastric lumen. Medications: 1% Lidocaine 20ccs subcutaneous, and as per Anesthesia. Antibiotic Prophylaxis: Ancef 2 g IV. Est Blood Loss: <5cc. Complications: No immediate. Impression: 1. Placement of 16 Fr balloon retained nonlow-profile gastrostomy tube, ready for use. 2. Gastric retention anchors to be released in 7 to 10 days. Resident/Fellow: None. Attending: Dr. Hailey Meredith performed this procedure. * Aileen Mayorga MD - 08/21/2022 4:51 PM EDTProcedure(s): BRONCHOSCOPY Bronchoscopy Procedure Note Date of Operation: 08/21/2022 Pre-op Diagnosis: pneumonia Post-op Diagnosis: pnemonia Surgeon: AILEEN MAYORGA MD Assistants: Anesthesia: Propofol ongoing sedation Operation: Flexible fiberoptic bronchoscopy, with lavage Findings: no abnormalities, see below Specimen: BALx2 Estimated Blood Loss: 0 Drains: 0 Complications: none Description of Procedure: A time-out was conducted just before the start of the procedure to verify the correct patient and procedure, procedure location, and all relevant critical information. The scope was advanced through the indwelling endotracheal tube. Due to the size of the ETT, a pediatric scope was used, limiting lavage to some degree Endobronchial findings: Normal anatomy Trachea: Normal mucosa Consuelo: Normal mucosa Right main bronchus: Normal mucosa Right upper lobe bronchus: Normal mucosa Right middle lobe bronchus: Normal mucosa Right lower lobe bronchus: Normal mucosa Left main bronchus: Normal mucosa Left upper lobe bronchus: Normal mucosa Left lower lobe bronchus: Normal mucosa Lavage of a total of 80 ml in two locations performed at the left upper and left lower lobe segmental bronchi. A total of approximately 20 ml returned, sent for appropriate studies. * Carlos Arnold RN - 08/19/2022 4:51 PM EDTAssociated Order(s): PLACE BEDSIDE PICC LINE PICC/Midline Insertion Procedure Note Indications: Medication Administration This insertion was not to replace a malfunctioning catheter. This insertion was not due to a suspected line-associated infection. Location of Procedure: [facility] Risks and Benefits: The risks and benefits of this procedure were reviewed and informed consent was obtained obtained. Time Out: Prior to the start of the procedure, the patient's identity, intended procedure, site/side, correctpatient positioning and presence of the site allen was confirmed as applicable. The medical history and chart were reviewed to rule out potential contraindications to the planned procedure. Hand Hygiene: The cad manager did perform hand hygiene prior to line insertion. Catheter type: PICC Lot number: [id number] Procedure Technique: Skin was prepped with chlorhexidine. Skin preparation agent was completely dry at the time of first skin puncture. The following barrier precaution methods were used:large sterile drape, maske/eye shield, large sterile gown, sterile gloves and cap. 3 ml of 1% Lidocaine was used for skin wheal. Ultrasound was used for guidance. Radiographic contrast agent was not injected for vein identification. Procedure Details: Order received for catheter placement. A 5 Fr. double lumen Bard Power catheter was placed into theright basilic vein over a 0.018 inch guidewire using modified seldinger technique and fluoroscopy. Arm circumference was 32 cm at 2 cm above the insertion site. Final catheter length (with trimming): 33 cm Internal: 33 cm External: 0 cm Tip in SVC per Gab The line was not placed over a guidewire. Post Procedure: Diagnosis: Shock Blood return noted on aspiration of line after placement confirmed. 5 mls of normal saline infused free flowing to gravity via PICC after insertion. Sterile dressing applied: CHG Impregnated Tegaderm. Findings: The patient did tolerate the procedure well. No Complications. Procedure Comments: Placed at bedside CARLOS ARNOLD RN 08/19/2022 * Tyree Martin MD - 08/18/2022 2:19 PM EDTAssociated Order(s): EEG ROUTINE Procedure(s): EEG ROUTINE - PROCDOC Pre-Procedure Diagnose(s): Encephalopathy [facility] Department of Neurology Inpatient Routine EEG Report Name of the Patient: Ishan Irving Date of : 1960 Date of Service: 08/18/2022 Referring physician: Neva Tomlin MD Reading Resident/Fellow: Cedric Gilbert MD Reading Attending: Dr. Martin Routine EEG start time: 11:23 on 08/18/22 Routine EEG end time: 12:25 on 08/18/22 Total time recorded: 62 minutes Indication for EEG: Encephalopathy/Altered mental status BRIEF HISTORY: Ishan Irving is a 62 y.o. female with h/o bipolar, DM, EtOH, esophagitis, who presented to [facility] 3 days ago after being found unresponsive at home. Patient found to have likely pneumonia +/- aspiration, newly reduced EF. Patient not on any sedation, not waking up. MEDICATIONS: -Depakote 500 mg x1 dose -Fentanyl gtt stopped 08/17 -Propofol gtt stopped 08/17 PRIOR EEG(s): -N/A METHODS: A 21 channel digitized electroencephalogram was performed in the [facility]. The 10/20 international system of electrode placement was used and bipolar and referential electrode montages were recorded. In addition to EEG the patient was monitored for EKGand lateral/vertical eye movements. Video was recorded during the session. SENIOR SOLUTIONS CONSULTANT'S REPORT: Performed by: Glendy MARCUS Patient was not sleep deprived. Sleep was not attained. Photic stimulation was not performed. Hyperventilation was not performed. Effort was not adequate. Movement and other artifact was not significant. Comments: ELECTROENCEPHALOGRAPHER'S REPORT Background: The background was continuous and spontaneously reactive composed of normal voltage, 10 to 60 ??V. There was a poorly organized anterior to posterior gradient with faster frequencies anteriorly. Background consisted of mostly delta slowing admixed with occasional theta, without a posterior dominantrhythm. Focal Asymmetries: There were no focal asymmetries. Sleep: Sleep was not seen distinctively from wakefulness. Interictal Activity: Frequent generalized periodic discharges, bifrontal predominant with biphasic vs triphasic morphology, 60-80 uV, occurring every several seconds at times. Ictal Activity: No electrographic seizures were recorded. Patient Events: -N/A Provocative Maneuvers: Hyperventilation and photic stimulation were not performed. EKG: Single-lead EKG was low amplitude and cardiac rhythm was not well interpreted in the current study. Technical Limitations: None INTERPRETATION: This 62-minute routine EEG was abnormal due to the presence of: 1.) Frequent generalized periodic discharges with biphasic/triphasic morphology 2.) Moderate diffuse continuous slowing CLINICAL CORRELATION: The overall pattern of this EEG suggests a moderate global cerebral dysfunction of nonspecific etiology. No epileptogenic patterns or discharges were identified. Generalized periodic discharges are anon-specific marker of encephalopathy and may be seen in toxo-metabolic and infectious etiologies. Cedric Gilbert MD 08/18/2022 Attending Attestation I reviewed the EEG with the resident/fellow, made appropriate changes to the EEG report as needed, and I agree with the final interpretation as written. Tyree Martin MD [facility] Department of Neurology * Cedric Gilbert - 08/18/2022 12:57 PM EDT Preliminary EEG Report: This EEG is abnormal due to continuous generalized delta slowing. There are generalized periodic discharges with triphasic morphology which are not epileptiform in nature and are a marker of toxic metabolic encephalopathy. No seizures or epileptiform discharges seen. Full report to follow. Cedric Gilbert MD Epilepsy Fellow P. [phone] * Jesenia Mejía MD - 08/15/2022 12:47 AM EDT Pulmonary Arterial Line Placement Procedure Note Indications: Catheter placed for diagnosis and treatment of instability. This insertion was not to replace a malfunctioning catheter. This insertion was not due to a suspected line-associated infection. Location of Procedure: [facility] Risks and Benefits: The risks and benefits of this procedure were not reviewed and informed consent was not obtained obtained. Informed consent was waived due to the emergent nature of the procedure. Time Out: Prior to the start of the procedure, the patient's identity, intended procedure, site/side, correctpatient positioning and presence of the site allen was confirmed as applicable. The medical history and chart were reviewed to rule out potential contraindications to the planned procedure. Hand Hygiene: The cad manager did perform hand hygiene prior to line insertion. Procedure Details: Insertion Site:internal jugular side:right Confirmation of Venous Placement: Venous placement was confirmed by transducing the pressure. Introducer Insertion Attempts: 1 Comments: See separate note Floating the [place] Catheter Attempts: 1 Sterile Dressing: CHG Impregnated Tegaderm Findings: Pressure (torr): RV: 45/15 PA: 45/30 PAOP: Could not wedge CVP: 15 Complications: No complications. Post Procedure: Chest X-ray ordered. Associated attestation - Vanessa Escalona MD - 12/23/2022 2:43 PM EDT I was not present for this procedure * Jesenia Mejía MD - 08/15/2022 12:44 AM EDT Patient Name: Ishan Irving Patient Age: 62 y.o. Birthdate: 1960 Admit date: 08/14/2022 Discharge date and time: No discharge date for patient encounter. Attending Physician: Carlos Terry MD Central Line Placement Procedure Note Procedure Diagnosis: Hypotension Risks and Benefits reviewed: no. Informed Consent obtained: no Informed consent was waived due to the emergent nature of the procedure. Reason for insertion: new central line Time out performed and documented: yes Hand Hygiene performed: Yes Skin prepped with: chlorhexidine Skin prep agent completely dry at time of first puncture: yes Sterile drape: large sterile drape used Mask/eye shield: mask/eye shield used Large sterile gown: large sterile gown used Sterile gloves: sterile gloves used Cap worn: cap worn Ultrasound guidance used for insertion: Yes Catheter type: CVL Tunneled/Non Tunneled: non tunneled Insertion Site: jugular (internal) Insertion Side: right Number of attempts: 1 Insertion successful: Yes Catheter sutured at the skin at: 10 cm . Sterile dressing: Chlorhexidine Tegaderm Findings: Patient tolerated procedure well. Complications: No Complications. Chest X-ray ordered: yes Patient location at time of insertion: CVCC Jesenia Mejía MD Associated attestation - Vanessa Escalona MD - 12/23/2022 2:43 PM EDT I was not present for this procedure * Jesenia Mejía MD - 08/15/2022 12:42 AM EDT Patient Name: Ishan Irving Patient Age: 62 y.o. Birthdate: 1960 Admit date: 08/14/2022 Discharge date and time: No discharge date for patient encounter. Attending Physician: Carlos Terry MD Arterial Line Placement Procedure Note Indication for Procedure: Arterial line was placed for invasive blood pressure monitoring. Procedure Diagnosis: Hypotension Location of Procedure: Critical Care. Risks and Benefits: The risks and benefits of this procedure were not reviewed and informed consentwas not obtained. Informed consent was waived due to the emergent nature of the proccedure. Time Out: Prior to the start of the procedure, the patient's identity, intended procedure, site/side, correct patient positioning and presence of the site allen was confirmed as applicable. The medical history and chart were reviewed to rule out potential contraindications to the planned procedure. Hand Hygiene: The cad manager did perform hand hygiene prior to arterial line insertion. Procedure Prep: Sterile draping was applied. Skin was prepped with chlorhexidine. Full barrier precautions were used. Procedure Details: A 20 gauge, 0.75 inch catheter was placed in the right radial artery and securedwith steri-strips. Tegaderm was applied.. There were 2 attempts. Findings: There were no procedure complications. Associated attestation - Vanessa Escalona MD - 12/23/2022 2:44 PM EDT I was not present for this procedure documented in this encounter Miscellaneous Notes * Plan of Care - Leann Harding RN - 09/25/2022 10:25 AM EDT Patient discharged home. Medical feeding pump and feeding tube supplies taken per family. PEG site C/D/I and new split gauze placed. Pericare provided and brief and mesh underwear applied with skin barrier ointment applied to periarea and bottom. Patient refused need for bath this morning. PIV removed from right forearm and 2x2s and tape to site. No redness, swelling nor drainage from site. aware of how to do tube feeds, administer meds and flushes to feeding tube. Education material reviewed and given to family. HH to start this weekend for ongoing home care. Patient assisted to get dressed and belongings packed per family to take home. Problem: Adult Inpatient Plan of Care Goal: Plan of Care Review Outcome: Outcome (s) achieved Goal: Patient-Specific Goal (Individualized) Outcome: Outcome (s) achieved Goal: Absence of Hospital-Acquired Illness or Injury Outcome: Outcome (s) achieved Goal: Optimal Comfort and Wellbeing Outcome: Outcome (s) achieved Goal: Readiness for Transition of Care Outcome: Outcome (s) achieved Problem: Oral Intake Inadequate Goal: Improved Oral Intake Outcome: Outcome (s) achieved * Care Management Discharge - Ashlee Miramontes RN - 09/24/2022 4:10 PM EDT CARE MANAGEMENT FINAL DISCHARGE NOTE Chart reviewed, care reviewed with primary team and at interdisciplinary rounds. Patient is medically ready and anticipated to discharge home with family with [facility] and 24/7 care 09/25/22. Medical team has cleared Ishan to return home with [facility]. Patient will discharge with [facility] with a SOC 09/26/22. [facility] has done education on administration of tube feeds and has stated they did well. Delivery of formulas was done 09/24/22 at 1700. Needs for Transition of Care: Plan for discharge is: Home w/ Services Outpatient Agency/Support Group Needs: None Home Health Services: Occupational Therapy, Physical Therapy, Medication checks, Registered Nurse, Home Health Aide, [employer] Agency Referrals & Follow-up Care: Contact information for follow-up Infusion Therapy, [address] [address] [facility], [place] [address] [place] [address] Transportation: ambulance family or friend will provide Wheelchair van/Ambulance? No Functional status prior to admission: Independent (was using a walker per spouse for her post hip surgery recovery) Home Environment: Others in the home: spouse, pet(s) (dog). Current Living Arrangements: home/apartment/condo. Accessibility Concerns:one level and BM; 3 steps to enter. Current Functional Ability: Assistive Person and Equipment *2 assist with FWW/gait belt DME used at home: walker - rolling (for hip recovery) DME Needed at Discharge: none Patient is insured through: Primary Insurance: [place] Pay[place] / Plan: [place] PRIMARY CARE [place] / Product Type: *No Product type* / Secondary Insurance: N/A Prescription Coverage: Yes This plan was formulated with input from patient, Ishan and Antonio and team. All are in agreement with plan. Ashlee Miramontes RN [phone] Pager [phone] * Plan of Care - Leann Harding RN - 09/24/2022 10:16 AM EDT Patient resting in bed. Denies any discomfort at present time. very involved in care and visits throughout the day. Masimo sensor changed as sensor defective. Patient with hand tremors that at times triggers a maggi heart rate alarm. Works with PT/OT ongoing and patient uses walker with oneassist for ambulation and ADLs. Lylewick present and changed this morning with incontinent event. Plans for D/C home Wednesday with services. Tolerates tube feed without complication. IV saline flushes without complication and SL. Call marshall in reach, family at bedside and side rails up x 3. Problem: Adult Inpatient Plan of Care Goal: Plan of Care Review Outcome: Ongoing (Interventions Implemented as Appropriate) Goal: Patient-Specific Goal (Individualized) Outcome: Ongoing (Interventions Implemented as Appropriate) Goal: Absence of Hospital-Acquired Illness or Injury Outcome: Ongoing (Interventions Implemented as Appropriate) Goal: Optimal Comfort and Wellbeing Outcome: Ongoing (Interventions Implemented as Appropriate) Goal: Readiness for Transition of Care Outcome: Ongoing (Interventions Implemented as Appropriate) Problem: Oral Intake Inadequate Goal: Improved Oral Intake Outcome: Ongoing (Interventions Implemented as Appropriate) * Care Management - Ashlee Miramontes RN - 09/23/2022 1:11 PM EDT OFFICE OF CARE MANAGEMENT PROGRESS NOTE LOS: Hospital Day 40 days Chart reviewed, care reviewed with primary team and at interdisciplinary rounds. Patient is medically ready for discharge. Per medical team, plan for patient to discharge 09/26/[address] [facility] and24/ care. Plan for [facility] to do a teach with patient and family regarding administration of tube feeds , 09/24/22. Decision Maker: Self Functional status prior to admission: Independent (was using a walker per spouse for her post hip surgery recovery) Home Environment: Others in the home: spouse, pet(s) (dog). Current Living Arrangements: home/apartment/condo. Accessibility Concerns: one level and BM; 3 steps to enter. Current Functional Ability: Assistive Person and Equipment *2 assist with FWW/gait belt DME used at home: walker - rolling (for hip recovery) DME Needed at Discharge: No Patient is insured through: Primary Insurance: [place] / Plan[place] PRIMARY [place]ARE [place] / Product Type: *No Product type* / Secondary Insurance: N/A Long-term Medicaid Needs: New Referral Status: In Process *Application submitted 09/14 Referral Placed: 09/10/2022 Last Physical Therapy Recommendation: home with home health, home with supervision (30/11 assist) with None Last Occupational Therapy Recommendation: acute rehabilitation facility with to be determined Plan for discharge is: Home w/ Services Outpatient Agency/Support Group Needs: None Agency Referrals: Several SNF referrals have been submitted, patient and family prefer to discharge home with [facility] and30/11 care. Medical team is aware of patient and family preference. [facility] Transportation: ambulance vs family Barriers to discharge: Discharge planning Supports: Caregiver support Financial: LTC Medicaid *Submitted 09/14 Plan going forward: Care Management will continue to follow and assist with discharge planning and coordination of care as indicated. Anticipated Date of Discharge: 09/25/2022 Ashlee Miramontes RN [phone] Pager [phone] * Plan of Care - Leann Harding RN - 09/23/2022 11:06 AM EDT Patient resting up in recliner. No discomfort at present time. involved in care remains at bedside. VSS and WNL. OT assists patient OOB and to BR to bath and use BR. Uses walker with one assist OOB. Also uses call marshall for any needs/assistance. Tube feeds ongoing to day and PEG site with C/D/I split gauze present to site. Small BM this AM and pericare provided. Masimo resent and RA with O2 sats WNL. Plan to discharge home with HHRN and therapy. familiar on how to manage PEG tube. Problem: Adult Inpatient Plan of Care Goal: Plan of Care Review Outcome: Ongoing (Interventions Implemented as Appropriate) Goal: Patient-Specific Goal (Individualized) Outcome: Ongoing (Interventions Implemented as Appropriate) Goal: Absence of Hospital-Acquired Illness or Injury Outcome: Ongoing (Interventions Implemented as Appropriate) Goal: Optimal Comfort and Wellbeing Outcome: Ongoing (Interventions Implemented as Appropriate) Goal: Readiness for Transition of Care Outcome: Ongoing (Interventions Implemented as Appropriate) Problem: Oral Intake Inadequate Goal: Improved Oral Intake Outcome: Ongoing (Interventions Implemented as Appropriate) * Plan of Care - Sofia Montoya RN - 09/22/2022 10:24 PM EDT OUTCOME EVALUATION NOTE: OUTCOME SUMMARY: Pt A&Ox4. VSS on RA. Pt denied pain but endorsed discomfort in feet along with numbness/tingling. Scheduled Gabapentin and Tylenol given via PEG. Cyclic tube feed of Nutren 1.5 stopped at 2200 and restarted at 0600 per order. BG monitored q4h and insulin given per JUL. External catheter in place. Pt slept between care. Assessment as filed. Safety maintained. Will continue to monitor. PLAN MOVING FORWARD: PEG Sips and chips BG QID VS q6h WA PT/OT D/c planning- Wednesday home w/ PEG INDIVIDUALIZED FALL PREVENTION INTERVENTIONS: Bed alarm set, wheels locked and bed in lowest position, side rails up x3, call marshall/personal itemswithin reach, non-skid socks when OOB, purposeful hourly rounding, room near nurse's station Patient-specific fall risk factors per assessment: [current deficits]: IV site, Hx of fall w/ injury, generalized weakness Assistance [level of assistance required for transfers and ambulation]: 1 Assist in bed Supervision [direct monitoring required during toileting and ADLs]: Hands on Surveillance [continuous indirect monitoring]: Coryo on Patient-specific fall prevention interventions for sensory deficits provided, if applicable: [X] Yes CPG GOAL OUTCOME EVALUATION: * Plan of Care - Alla Gama RN - 09/21/2022 5:37 PM EDT OUTCOME EVALUATION NOTE: OUTCOME SUMMARY: Patient AAOx4, VSS on RA, c/o pain to her feet, MD aware. BG monitored and treated as ordered. G tube remains patent, tube feeding running as ordered. Patient was up in the chair for part of the day,she worked with PT in the gym. Medications given as ordered via G tube. PLAN MOVING FORWARD Tube feeding BG monitoring D/C planning Daily weight INDIVIDUALIZED FALL PREVENTION INTERVENTIONS: Patient-specific fall risk factors per assessment: [current deficits]: Generalized weakness, IV sites, hospital environment Assistance [level of assistance required for transfers and ambulation]: 2 FWW Supervision [direct monitoring required during toileting and ADLs]: Hands on/Eyes on Surveillance [continuous indirect monitoring]: Masimo, room near nursing station, call marshall within reach, purposeful rounding. Patient-specific fall prevention interventions for sensory deficits provided, if applicable: N/A CARE PLAN GOAL OUTCOME EVALUATION: * Plan of Care - Radha Lockett RN - 09/20/2022 6:46 PM EDT OUTCOME EVALUATION NOTE: OUTCOME SUMMARY: Pt A/O x4. VSS on RA. Pt denies dizziness, h/a, pain, SOB. Pt does endorse nausea continuously and vomiting intermittently (small amounts of emesis.) Pt using bedpan to have BM. Purewick in place. Good output. Pt endorses pain in L leg, as well as pain and N/T in L foot. BS checks and insulin coverage provided per order. Family at bedside this AM for Mother's Day; pt expressed that this lifted her spirits. All medications administered per order (see MAR) by CAROLEE Oviedo. Assessment as documented (see flowsheet.) Safety maintained. PLAN MOVING FORWARD: TF BG monitoring D/C planning INDIVIDUALIZED FALL PREVENTION INTERVENTIONS: Patient-specific fall risk factors per assessment: [current deficits]: Generalized weakness, equipment in room, IV sites, TF, hospital environment Assistance [level of assistance required for transfers and ambulation]: 2A, FWW Supervision [direct monitoring required during toileting and ADLs]: Hands on, eyes on Surveillance [continuous indirect monitoring]: Masimo, purposeful hourly rounding, call marshall withinreach, bed alarm set, room near nurse's station Patient-specific fall prevention interventions for sensory deficits provided, if applicable: [X] N/A CPG GOAL OUTCOME EVALUATION: Ongoing * Plan of Care - Maddie Pop RN - 09/18/2022 5:03 PM EDT OUTCOME EVALUATION NOTE: ?? OUTCOME SUMMARY: ?? Pt is A/OX4, pleasant and cooperative with care. VSS on RA. Pt tolerating TF with very little nausea. Able to work with OT for a lengthy session today and complete much of her own care. Sat in chair for several hours, transferred from chair to bed with minimal assist and a RW. BG monitored and insulin coverage per [facility] orders ?? PLAN MOVING FORWARD Tube feeding BG monitoring D/C planning ? INDIVIDUALIZED FALL PREVENTION INTERVENTIONS: ?? Patient-specific fall risk factors per assessment: [current deficits]: Generalized weakness, IV sites, hospital environment Assistance [level of assistance required for transfers and ambulation]: 2 FWW ?? Supervision [direct monitoring required during toileting and ADLs]: Hands on/Eyes on ?? Surveillance [continuous indirect monitoring]: Masimo, room near nursing station, call marshall within reach, purposeful rounding. ?? Patient-specific fall prevention interventions for sensory deficits provided, if applicable: N/A ? CARE PLAN GOAL OUTCOME EVALUATION: * Care Management - Ashlee Miramontes RN - 09/17/2022 11:57 AM EDT Therapy recommendations are for Ishan to go to rehab prior to going home. RUPAL spoke to Antonio anaya, who stated Ishan does not want to go to rehab, she wants to go home. RUPAL spoke to Ishan regarding discharge planning. RUPAL and anime designer attempted to give education on importance of utilizing rehab to ensure a safe discharge home. Patient is adamantly refusing rehab at this time. Medical team is aware of family wishes. Ashlee Miramontes RN, CM [phone] Pager [phone] ADDENDUM 1348: Message received from Antonio anaya, expressing extreme frustration regarding needfor rehab before returning home. Family preference is for Ishan to return home with HHS despite therapy recommendations for rehab. Antonio requesting a return call from RUPAL and . has been notified. RUPAL left a message with and is currently awaiting a return call. Referrals submitted per Antonio anaya's request. The Injector Assembler, Antonio anaya has been provided a list of Home Health Agencies/DME vendors which serve their preferred geographic area. A letter describing our affiliations was reviewed with them and they were educated about their right to choose where referrals are placed. CM Provided patient with [facility] Star Quality Rating for Home care hand out. Patient requests referral to : [facility] [address] [place] [address] Expected date of discharge: 09/25/22. Referral routed to the Hospitalist Program Director for matching with agency/vendor and to provide any required information. New Tube Feeds: [facility] [address] , [place] [address] Toll Free: Nursing Pharmacy Ashlee Miramontes RN [phone] Pager [phone] * Plan of Care - Radha Lockett RN - 09/16/2022 5:25 PM EDT OUTCOME EVALUATION NOTE: OUTCOME SUMMARY: Pt A/O x4. VSS on RA. While asleep this AM, O2 sat dropped to 70's x2. Pt found to be asleep, encouraged to take deep breaths. O2 sat improved to >90%. at bedside until 1200. Pt denies??dizziness, h/a, pain, SOB. Pt endorses pain 5/10 in hip, N/T in bilateral feet. Provider at bedside, ordered scheduled acetaminophen 650mg, which was administered. Diclofenac gel applied to L hip for pain as well. TF at 90 ml/hr per provider. Endorses nausea continuously and vomiting intermittently (small amounts of emesis.) Vascular access at bedside for PICC removal, pt tolerated well. MT at bedside; sit to stands done at edge of bed, and pt walked in room. PT at bedside to take pt to the gym. Per PT, pt up to toilet to void. Purewick in place on return to room. Pt requested ice chips at 1400.BS checks and insulin coverage provided per order. All medications administered per order (see MAR.) Assessment as documented (see flowsheet.) Safety maintained. PLAN MOVING FORWARD: Monitor for skin breakdown TF; 90ml/hr Placement and D/C planning INDIVIDUALIZED FALL PREVENTION INTERVENTIONS: Patient-specific fall risk factors per assessment: [current deficits]: Generalized weakness, IV sites, hospital environment, equipment in room, TF?? Assistance [level of assistance required for transfers and ambulation]: 2A, FWW Supervision [direct monitoring required during toileting and ADLs]: Hands on, eyes on Surveillance [continuous indirect monitoring]: Purposeful hourly rounding, bed near nurse's station, masimo, bed alarm set Patient-specific fall prevention interventions for sensory deficits provided, if applicable: [X] N/A CPG GOAL OUTCOME EVALUATION: Ongoing * Care Management - Ashlee Miramontes RN - 09/16/2022 3:06 PM EDT OFFICE OF CARE MANAGEMENT PROGRESS NOTE LOS: Hospital Day 33 days Chart reviewed, care reviewed with primary team and at interdisciplinary rounds. Patient is medically ready for discharge pending bed availability. Decision Maker: Self Functional status prior to admission: Independent (was using a walker per spouse for her post hip surgery recovery) Home Environment: Others in the home: spouse, pet(s) (dog). Current Living Arrangements: home/apartment/condo. Accessibility Concerns: one level and BM; 3 steps to enter. Current Functional Ability: Assistive Person and Equipment *2 assist with FWW/gait belt DME used at home: walker - rolling (for hip recovery) DME Needed at Discharge: No Patient is insured through: Primary Insurance: [place] / Plan[place] PRIMARY CARE [place] / Product Type: *No Product type* / Secondary Insurance: N/A Long-term Medicaid Needs: New Referral Status: In Process *Application submitted 09/14 Referral Placed: 09/10/2022 Last Physical Therapy Recommendation: [facility] facility with to be determined Last Occupational Therapy Recommendation: acute rehabilitation facility with to be determined Plan for discharge is: Nursing Home Facility / Swing Outpatient Agency/Support Group Needs: None Agency Referrals: Diane - pending decision [facility] - declined, no payer source. Ongoing discussion regarding possible contract. Tawanda Moreno - pending response ?? Transportation: ambulance Barriers to discharge: Discharge planning Supports: Caregiver support Financial: LTC Medicaid *Submitted 09/14 Plan going forward: Care Management will continue to follow and assist with discharge planning and coordination of care as indicated. Anticipated Date of Discharge: 09/21/2022 Ashlee Miramontes RN [phone] Pager [phone] * Plan of Care - Ama Mckoy RN - 09/16/2022 12:40 AM EDT OUTCOME EVALUATION NOTE: OUTCOME SUMMARY: Patient A&O x4. VSS stable on RA. Meds administered per MAR via G tube.Patient denies SOB &Chest pain, only reports pain at G-Tube incision site and L. Hip. G- tube dressing is clean, dry, and intact. Hip incision dry and intact. PRN tylenol administered with good effect. Need for incontinence care monitored with hourly rounding and patient more agreeable tonight for turning and reposition ing. Patient was encouraged to use commode overnight or bedpan over the purewick. Resting between care, safety maintained. PLAN MOVING FORWARD: Gastric retention anchor release next week Placement vs. Home with services PICC Removal? Monitor incontinence care and ski-administer cream/ointments as ordered. INDIVIDUALIZED FALL PREVENTION INTERVENTIONS: Patient-specific fall risk factors per assessment: [current deficits]: high Assistance [level of assistance required for transfers and ambulation]: x2 w/walker Supervision [direct monitoring required during toileting and ADLs]: hands on Surveillance [continuous indirect monitoring]: purposeful hourly rounding, bed alarm on, call marshall within reach, bed in lowest position. Patient-specific fall prevention interventions for sensory deficits provided, if applicable: [X] Yes CARE PLAN GOAL OUTCOME EVALUATION: * Plan of Care - Radha Lockett RN - 09/15/2022 7:34 PM EDT OUTCOME EVALUATION NOTE: OUTCOME SUMMARY: Pt A/O x4. VSS on RA. Pt denies dizziness, h/a, pain, SOB. Pt does endorse nausea continuously and vomiting intermittently (small amounts of emesis.) D/t N/V, TF was not advanced to 90ml/hr, remainedat 70ml/hr. Pt using bedpan frequently to void, and had one small BM, however c/o bedpan causing pain on sacrum. Pt requested purewick, which was placed. Pt requested to walk with MT. C/O pain in feet and got back into bed, discouraged. BS checks and insulin coverage provided per order. All medications administered per order (see MAR.) Assessment as documented (see flowsheet.) Safety maintained. PLAN MOVING FORWARD: Monitor for skin breakdown TF; goal 90ml/hr D/C planning ?? INDIVIDUALIZED FALL PREVENTION INTERVENTIONS: Patient-specific fall risk factors per assessment: [current deficits]: Generalized weakness, IV sites, hospital environment, equipment in room, TF ?? Assistance [level of assistance required for transfers and ambulation]: 2A, FWW Supervision [direct monitoring required during toileting and ADLs]: Hands on, eyes on Surveillance [continuous indirect monitoring]: Purposeful hourly rounding, bed near nurse's station, masimo, bed alarm set Patient-specific fall prevention interventions for sensory deficits provided, if applicable: [X] N/A CPG GOAL OUTCOME EVALUATION: Ongoing * Consult Note - Khadra Lou RN - 09/15/2022 1:42 PM EDT Images from the original note were not included. Certified Wound Care Nurse Note Situation: Follow up to see Ishan Irving for IAD with candidiasis. Background: eD-H notes reviewed for history, admitting diagnosis and active problem list. Wound Assessment and Care Provided: Patient seen this morning in room 132-A in bed, reason for visit explained to patient, permission received to assess skin. RN in attendance with student giving care. Brief on patient, recommended not using the brief in bed as it holds moisture in against the skin. RN states patient does not like the Primafit and bedpans have been difficult and painful for the patient to use. Discussed using a bedside commode which will also facilitate mobility for the patient. Brief removed, the rash and satellite lesions are much improved. Dajuan Score: 16 Last Pressure Ulcer Prevention assessment: Shift Pressure Injury Prevention Occiput: No Injury Thoracic Spine: No Injury Sacral: No Injury Ischial - left: No Injury Ischial - right: No Injury Heel - left: Redness, Blanchable Heel - right: Redness, Blanchable Elbow - left: No Injury Elbow - right: No Injury Device Sites: O2 sat monitor, IV sites Other Sites: idb Nutritional Status Wt Readings from Last 1 Encounters: 09/13/22 67.2 kg (148 lb 1.6 oz) Body mass index is 28.92 kg/m??. Labs Lab Results Component Value Date ALBUMIN 2.5 (L) 08/20/2022 ALBUMIN 2.4 (L) 08/15/2022 ALBUMIN 2.4 (L) 08/15/2022 HA1C 6.2 (H) 08/15/2022 HA1C 10.6 (H) 12/13/2014 WBC 5.9 09/15/2022 WBC 5.5 09/14/2022 WBC 5.2 09/13/2022 HGB 10.2 (L) 09/15/2022 HGB 10.1 (L) 09/14/2022 HGB 9.2 (L) 09/13/2022 HCT 34.4 (L) 09/15/2022 HCT 33.7 (L) 09/14/2022 HCT 30.9 (L) 09/13/2022 PLATELET 252 09/15/2022 PLATELET 246 09/14/2022 PLATELET 239 09/13/2022 INR 2.0 08/15/2022 PT 22.3 (H) 08/15/2022 Nutritional Intake Nutrition Diet/Nutrition Received: tube feeding Diet/Feeding Assistance: total feed Intake (%): 0% Nutrition Risk Screen: tube feeding or parenteral nutrition Current bed: Assessment: Patient is with much improved incontinence associated dermatitis. To prevent recurrence recommend not using briefs in bed and using commode as much as possible. Wound Care Recommendations: Use of a bedside commode for toileting. Perineal, gluteal region: 2% Miconazole Remedy Phytoplex Ointment BID for 2 weeks per MAR Do not apply mepilex dressing over area of ointment application, as it will trap unwanted moisture and increase skin breakdown. ?? Refer to adult/pediatric pressure ulcer prevention job aid in the clinical policy library highlighting the following points: Mepilex Border Sacrum dressing to sacrum-Assess beneath the dressing daily and reapply, sealing edges with skin prep. Change every 3 days and PRN: 1. 1. Cleanse skin with dermal wound cleanser. 2. 2. Apply Mepilex Border Sacrum dressing making sure to apply directly against the skin. 3. 3. Seal edges with skin prep. If the Mepilex Border Sacrum needs to be changed more than once a day due to soiling then discontinue and use shield barrier wipes and apply zinc barrier cream to denuded skin ?? Mobility: Turn and reposition every 2 hours and document in ED-H. Place a pillow above and below sacral area to off load pressure to the sacrum Offload pressure from heels by placing pillows lengthwise beneath legs while in bed. Offload pressure from heels by adjusting length of foot of bed. ?? Activity: Implement reminder system for repositioning every two hours while in bed Limit time OOB to the chair to 2 hour intervals. (Including placing bed in chair position, or having HOB higher than 30 degrees) Use a [employer] chair cushion beneath patient at all times while in the chair. Reinforce teaching to shift weight every 15 minutes while in the chair. This can be done by shifting weight side to side to off load pressure to ischial tuberosities. Place a pillow at the lumbar spine to off load pressure to the sacral spine. ?? Friction and Shear: Reposition avoiding shear forces, utilizing maxislide, trendelenberg and max inflate (boost) feature on beds to assist with repositioning. Position hips at triangle icon on bed. Use skin prep on heels and elbows bid. Keep HOB less than or equal to 30 degrees. Use Nourishing Skin Cream after baths for extra dry skin ?? Follow hospital standard for pressure injury prevention and skin care. Refer to adult/pediatric pressure injury prevention job aid in the clinical policy library. ? Wound Care will follow in two weeks Discussed plan with: ERI: Radha Please contact KHADRA LOU RN on pager [phone] or the wound care team at [phone] or pager [phone] with skin and wound care concerns or questions. * Plan of Care - Ama Mckoy RN - 09/15/2022 1:18 AM EDT OUTCOME EVALUATION NOTE: OUTCOME SUMMARY: Patient A&O x4. VSS stable on RA. Meds administered per MAR via G tube.Patient denies SOB &Chest pain, only reports pain at G-Tube incision site and L. Hip. Patient did go for hip xra, results pending. G-tube dressing is clean, dry, and intact. Hip incision dry and intact. PRN tylenol administered with good effect. Groin and vagina area reddened, pt agreeable to avoid purewick-skin monitored with hourly rounding and incontinence care offered. Resting between care, safety maintained. PLAN MOVING FORWARD: Discharge planning Monitor skin INDIVIDUALIZED FALL PREVENTION INTERVENTIONS: Patient-specific fall risk factors per assessment: [current deficits]: high Assistance [level of assistance required for transfers and ambulation]: x2 w/walker Supervision [direct monitoring required during toileting and ADLs]: hands on Surveillance [continuous indirect monitoring]: purposeful hourly rounding, bed alarm on, call marshall within reach, bed in lowest position. Patient-specific fall prevention interventions for sensory deficits provided, if applicable: [X] Yes CARE PLAN GOAL OUTCOME EVALUATION: Problem: Adult Inpatient Plan of Care Goal: Plan of Care Review Outcome: Ongoing (Interventions Implemented as Appropriate) Goal: Patient-Specific Goal (Individualized) Outcome: Ongoing (Interventions Implemented as Appropriate) Goal: Absence of Hospital-Acquired Illness or Injury Outcome: Ongoing (Interventions Implemented as Appropriate) Goal: Optimal Comfort and Wellbeing Outcome: Ongoing (Interventions Implemented as Appropriate) Goal: Readiness for Transition of Care Outcome: Ongoing (Interventions Implemented as Appropriate) Problem: Oral Intake Inadequate Goal: Improved Oral Intake Outcome: Ongoing (Interventions Implemented as Appropriate) * Plan of Care - Radha Lockett RN - 09/14/2022 5:39 PM EDT OUTCOME EVALUATION NOTE: OUTCOME SUMMARY: Pt A/O x4. VSS on RA. Pt denies dizziness, h/a, pain, SOB. Pt does endorse nausea continuously and vomiting intermittently (small amounts of emesis.) D/t N/V, TF was not advanced to 90ml/hr, remainedat 70ml/hr. Team notified. Pt using bedpan frequently to void, however by end of shift c/o bedpan causing pain on sacrum. Pt requested purewick, which was placed. Good output. No BM today. BS checks and insulin coverage provided per order. All medications administered per order (see MAR.) Assessment as documented (see flowsheet.) Safety maintained. PLAN MOVING FORWARD: Monitor for skin breakdown TF; goal 90ml/hr D/C planning INDIVIDUALIZED FALL PREVENTION INTERVENTIONS: Patient-specific fall risk factors per assessment: [current deficits]: Generalized weakness, IV sites, hospital environment, equipment in room, TF Assistance [level of assistance required for transfers and ambulation]: 2A, FWW Supervision [direct monitoring required during toileting and ADLs]: Hands on, eyes on Surveillance [continuous indirect monitoring]: Purposeful hourly rounding, bed near nurse's station, masimo, bed alarm set Patient-specific fall prevention interventions for sensory deficits provided, if applicable: [X] N/A CPG GOAL OUTCOME EVALUATION: Ongoing * Care Management - Marybeth Shelley RN - 09/14/2022 12:40 PM EDT OFFICE OF CARE MANAGEMENT PROGRESS NOTE LOS: Hospital Day 31 days Chart reviewed, care reviewed with primary team and at interdisciplinary rounds. Patient continues to be medically ready for discharge, pending rehab bed offer. Decision Maker: Self Functional status prior to admission: Independent (was using a walker per spouse for her post hip surgery recovery) Home Environment: Others in the home: spouse, pet(s) (dog). Current Living Arrangements: home/apartment/condo. Accessibility Concerns: one level and BM; 3 steps to enter. Current Functional Ability: Assistive Person and Equipment *2 assist with FWW/gait belt DME used at home: walker - rolling (for hip recovery) DME Needed at Discharge: No Patient is insured through: Primary Insurance: [place]ID [place] Payor: [place] / Plan: [place] PRIMARY CARE PLUS / Product Type: *No Product type* / Secondary Insurance: N/A Long-term Medicaid Needs: New Referral Status: In Process *Application submitted 09/14 Referral Placed: 09/10/2022 Last Physical Therapy Recommendation: [facility] facility with to be determined Last Occupational Therapy Recommendation: acute rehabilitation facility with to be determined Plan for discharge is: Nursing Home Facility / Swing Outpatient Agency/Support Group Needs: None Agency Referrals: [place] - pending decision [facility] - declined, no payer source. Ongoing discussion regarding possible contract. [facility] [place] - pending response Transportation: ambulance Barriers to discharge: Discharge planning Supports: Caregiver support Financial: [facility] Medicaid *Submitted 09/14 Plan going forward: G-tube successfully placed 09/11, patient tolerating tube feeds at this time. Remains NPO. She is s/p ORIF for left femur fracture, currently requiring 2 assist FWW/gait belt for mobility. [place] [facility] Medicaid application has been submitted 09/14. Care Management will continue to follow and assist with discharge planning and coordination of care as indicated. Anticipated Date of Discharge: 09/18/2022 Marybeth Shelley RN, BSN Deck Engine Operator - Medicine Office of Care Management Office: Pager: [phone] * Plan of Care - Ama Mckoy RN - 09/14/2022 4:01 AM EDT OUTCOME EVALUATION NOTE: OUTCOME SUMMARY: Patient A&O x4. VSS stable on RA. Meds administered per MAR via G tube.Patient denies SOB &Chest pain, only reports pain at G-Tube incision site. Dressing is clean, dry, and intact. Hip incision dry and intact. PRN tylenol administered with good effect. Groin and vagina area reddened, encouraged pt not to wear purewick. Patient became emotional and requested to wear purewick overnight, re moved around 0200 and pt was agreeable.Resting between care, safety maintained. 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 4 Siderails up per pt request Patient-specific fall prevention interventions for sensory deficits provided, if applicable: [X] Yes CARE PLAN GOAL OUTCOME EVALUATION: Problem: Adult Inpatient Plan of Care Goal: Plan of Care Review Outcome: Ongoing (Interventions Implemented as Appropriate) Goal: Patient-Specific Goal (Individualized) Outcome: Ongoing (Interventions Implemented as Appropriate) Goal: Absence of Hospital-Acquired Illness or Injury Outcome: Ongoing (Interventions Implemented as Appropriate) Goal: Optimal Comfort and Wellbeing Outcome: Ongoing (Interventions Implemented as Appropriate) Goal: Readiness for Transition of Care Outcome: Ongoing (Interventions Implemented as Appropriate) Problem: Oral Intake Inadequate Goal: Improved Oral Intake Outcome: Ongoing (Interventions Implemented as Appropriate) * Plan of Care - Ama Mckoy RN - 09/13/2022 3:25 AM EDT OUTCOME EVALUATION NOTE: OUTCOME SUMMARY: Patient A&O x4. VSS stable on RA. Meds administered per MAR via G tube.Patient denies SOB &Chest pain, only reports pain at G-Tube incision site. Dressing is clean, dry, and intact. Hip incision dry and intact. PRN tylenol administered with good effect. Purewick in place, pt resting between care, safety maintained. 0700 bed alarm is on. TF started at 30. Patient aware to ring for any discomfort or pain. PLAN MOVING FORWARD: Tube feeding Gastric retention anchors released in 7-10 days Placement vs home w/services Insurance pending for medicaid buttermilk drier operator care. INDIVIDUALIZED FALL PREVENTION INTERVENTIONS: Patient-specific fall risk factors per assessment: [current deficits]: high Assistance [level of assistance required for transfers and ambulation]: x2 OOB w/walker Supervision [direct monitoring required during toileting and ADLs]: hands on/eyes on Surveillance [continuous indirect monitoring]: purposeful hourly rounding, bed alarm on, call marsahll within reach, bed in lowest position. Patient-specific fall prevention interventions for sensory deficits provided, if applicable: [X] Yes CARE PLAN GOAL OUTCOME EVALUATION: * Plan of Care - Beti Bal RN - 09/11/2022 2:00 PM EDT OUTCOME EVALUATION NOTE: Patient will demonstrate an improved oral intake this shift. OUTCOME SUMMARY: Patient NPO, tube feed on hold awaiting G- tube placement. Non-functioning Dobbhoff in place, attempts made to exchange x2 unsuccessfully. No med or tube feed at this time. D5LR in place, infusing [id number]/hr. Plan for IR to place G- tube around 1500. Speech and Lead Slot Technician to floor, deferred assessment at that time d/t NPO status. PLAN MOVING FORWARD: Maintain NPO status, Provide hydration support measures. Collaborate with IR. Notify MD of any new adventitious findings. Document all assessments and interventions. INDIVIDUALIZED FALL PREVENTION INTERVENTIONS: Patient-specific fall risk factors per assessment: [current deficits]: Impaired mobility. Assistance [level of assistance required for transfers and ambulation]: Heavy two assist with walker Supervision [direct monitoring required during toileting and ADLs]: Moderate assist 1 Surveillance [continuous indirect monitoring]: Masimo, alarms, tele Patient-specific fall prevention interventions for sensory deficits provided, if applicable: [X] No CPG GOAL OUTCOME EVALUATION: Goal ongoing: pending rehab * Plan of Care - Rosie Anguiano RN - 09/11/2022 4:28 AM EDT OUTCOME EVALUATION NOTE: OUTCOME SUMMARY: A/O x4 with flat affect, VSS on RA. Tele maintained. Bilat UE tremors. C/o 9/10 pain in L hip, applied Voltargen gel without effect. One time dose of IV Morphine given, MD aware (see MAR). Emesis x1 with nausea, given PRN IV Compazine. Pt remains NPO d/t not able to use Dobhoff per MD order. K 3.4,IV KCL given. IV D5LR infusing @100ml/hr. BG obtained Q4, insulin given per JUL. Incision in L greater trochanter, open to air with steri-strips - no drainage, no redness, CDI. External cath changed,incontinence care provided (see Flowsheets). 2A with walker. Assessment as filed. Safety maintained. Will continue to monitor. PLAN MOVING FORWARD: Tele KCL Continuous IVF VS Q4h BG Q4h NPO - not use Dobhoff per MD order GJ tube planning INDIVIDUALIZED FALL PREVENTION INTERVENTIONS: Bed alarm set, wheels locked and bed in lowest position, side rails up x3, call marshall/personal itemswithin reach, purposeful hourly rounding, room near nurse's station Patient-specific fall risk factors per assessment: [current deficits]: Generalized weakness, medication, O2 tubing Assistance [level of assistance required for transfers and ambulation]: 2A w/ walker Supervision [direct monitoring required during toileting and ADLs]: Hands-on, eyes-on Surveillance [continuous indirect monitoring]: Tele, Masimo Patient-specific fall prevention interventions for sensory deficits provided, if applicable: [X] N/A CPG GOAL OUTCOME EVALUATION: * Consult Note - David Dejesus MD - 09/10/2022 8:44 AM EDT Images from the original note were not included. DIVISION OF GASTROENTEROLOGY & HEPATOLOGY INITIAL CONSULT REQUESTING PROVIDER: Molina Flores MD NAME: Ishan M Aristides : 1960 HPI: Ishan Irving 62 y.o./ w/ PMH of BE with esophageal stricture, bipolar disorder, T2DM, hx alcohol use c/b chronic pancreatitis (now sober), recent admission for femoral neck fracture s/p surgical fixation adm 08/14/2022 11:11 PM after found her down/unresponsive at home. GI is consulted for dysphagia. Initially saw her at beginning of admission after she was brought in for unresponsiveness - she wasgiven narcan with improvement and was brought in for tx of PNA. She was transferred to medicine forfurther mgmt of dysphagia and regurgitation. When we evaluated her, suspicion was lower for rapidlyprogressive stricture in 2 mo (scoped Jun 2022) and was not intervened on. Barium swallow obtained showing . She is maintained on Pantoprazole 40mg BID, Carafate 1g QID. Based on our notes, she has not had this esophageal stricture dilated. We are re-engaged, as surgery was to place G tube yesterday and performed EGD - this showed tight stricture at 25cm, grossly inflamed mucosa and inability to pass scope through. PEG snare passed but scope could not follow. Prior EGDs: - 07/03/22: persistent esophageal stricture from 25-30cm with C8M8 BE and some ulceration; pathologyBE negative for dysplasia with villous transformation of the cardia-type mucosa - 03/31/22: long segment BE with associated stricture - 09/23/21: severe esophagitis with BE and distal esophageal ulcer BARIUM SWALLOW 08/31 A feeding tube is present. The oral phase of swallowing is normal. The swallow is globally, subjectively weak. There is delayed elevation of the larynx long term between the vallecula and piriform sinuses. It is a bit more timely with pudding consistency then with thin or nectar. The epiglottis does not fully invert with thin or nectar consistency but does invert with pudding thick although delayed. There is laryngeal penetration and aspiration with thin consistency. There is penetration and pooling with nectar consistency. With pudding consistency there is more complete epiglottic inversion and a slightly more rapid swallow trigger but there is pooling with delayed aspiration of the pooled material. BARIUM SWALLOW 09/04 IMPRESSION 1. Penetration of the airway and aspiration with thin liquids, especially with rapid sips of thin barium. 2. Flash penetration of nectar thick liquids from a straw. 3. Reflux of residual barium within the esophagus on multiple swallows. ?? ROS: 10-system ROS negative other than that noted above PAST MEDICAL: Past Medical History: Diagnosis Date ??? Bipolar disorder 02/12/2022 PAST SURGICAL HX: Past Surgical History: Procedure Laterality Date ??? PRO COLONOSCOPY, BIOPSY N/A 03/20/2016 COLONOSCOPY FLEXIBLE, WITH BX performed by David Dejesus MD at [facility] ??? PRO COLONOSCOPY, DIAGNOSTIC N/A 03/01/2020 COLONOSCOPY, DIAGNOSTIC performed by David Dejesus MD at [facility] ??? PRO ENDOSCOPIC US EXAM, ESOPH N/A 03/31/2022 UPPER EUS- ENDOSCOPIC ULTRASOUND performed by David Dejesus MD at [facility] ??? PRO UPPER GI ENDOSCOPY, BIOPSY N/A 04/03/2014 UPPER GASTROINTESTINAL ENDOSCOPY,WITH BIOPSY SINGLE OR MULTIPLE performed by [facility] MDat [facility] ??? PRO UPPER GI ENDOSCOPY, BIOPSY N/A 03/20/2016 EGD WITH BIOPSY performed by David Dejesus MD at [facility] ??? PRO UPPER GI ENDOSCOPY, BIOPSY N/A 11/22/2018 EGD WITH BIOPSY (WRVU 2.49) performed by David Dejesus MD at [facility] ??? PRO UPPER GI ENDOSCOPY, BIOPSY N/A 03/01/2020 UPPER GASTROINTESTINAL ENDOSCOPY,WITH BIOPSY SINGLE OR MULTIPLE (WRVU 2.49) performed by David Dejesus MD at [facility] ??? PRO UPPER GI ENDOSCOPY, BIOPSY N/A 09/23/2021 EGD WITH BIOPSY (WRVU 2.49) performed by David Dejesus MD at [facility] ??? PRO UPPER GI ENDOSCOPY, BIOPSY N/A 03/31/2022 EGD WITH BIOPSY (WRVU 2.49) performed by David Dejesus MD at [facility] ??? PRO UPPER GI ENDOSCOPY, BIOPSY N/A 07/03/2022 EGD WITH BIOPSY (WRVU 2.49) performed by David Dejesus MD at [facility] ??? PRO UPPER GI ENDOSCOPY, DIAGNOSTIC N/A 04/03/2014 EGD, UPPER GI ENDOSCOPY performed by David Dejesus MD at [facility] ??? PRO UPPER GI ENDOSCOPY, DIAGNOSTIC N/A 03/01/2020 EGD, UPPER GI ENDOSCOPY performed by David Dejesus MD at [facility] SOCIAL HX: Social History Socioeconomic History ??? Marital status: Spouse name: Not on file ??? Number of children: Not on file ??? Years of education: Not on file ??? Highest education level: Not on file Occupational History ??? Not on file Tobacco Use ??? Smoking status: Former Years: 11. Types: Cigarettes Quit date: 02/26/2021 Years since quittin.5 ??? Smokeless tobacco: Never Substance and Sexual Activity ??? Alcohol use: Not Currently Alcohol/week: 1.0 standard drink Types: 1 Glasses of wine per week ??? Drug use: Never ??? Sexual activity: Yes Partners: Male Other Topics Concern ??? Not on file Social History Narrative ??? Not on file Social Determinants of Health Financial Resource Strain: Not on file Food Insecurity: Not on file Transportation Needs: Not on file Physical Activity: Not on file Housing Stability: Not on file FAMILY HX: No family history on file. MEDICATIONS Medication list personally reviewed Home Meds: Medications Prior to Admission Medication Sig Dispense Refill Last Dose ??? divalproex ER (Depakote ER) 500 mg ER 24 hr tablet Take 1,000 mg by mouth daily. Take two tablets every afternoon ??? divalproex ER (Depakote ER) 250 mg ER 24 hr tablet Take 250 mg by mouth nightly. ??? pantoprazole EC (Protonix) 40 mg Tablet, [...] Take 50 mg by mouth daily. ??? Blood Sugar [...] for dosing. 15 mL 11 ??? Insulin [place], Disposable, (BD INSULIN PEN NEEDLE UF MINI) 31 x 3/16 Needle 1 Device by [facility].(Non-Drug; Combo Route) route 3 times daily as needed. 100 each 11 Current Meds: Scheduled: ??? magnesium sulfate 2 g Intravenous Once ??? potassium bicarbonate 40 mEq Per NG tube Once ??? buPROPion 100 mg Per NG tube Daily ??? melatonin 6 mg Per NG tube Nightly ??? metoprolol tartrate 12.5 mg Per NG tube 2 times per day ??? QUEtiapine 100 mg Per NG tube Nightly ??? sacubitriL-valsartan 1 tablet Per NG tube BID ??? valproic acid 300 mg Per NG tube Q6H ??? insulin lispro 1-10 Units Subcutaneous Q4H LAZARUS ??? miconazole nitrate Topical (Top) BID ??? lidocaine 3 patch Transdermal Q24H ??? ergocalciferoL (vitamin D2) 50,000 Units Per NG tube Weekly ??? enoxaparin 40 mg Subcutaneous Daily ??? atorvastatin 80 mg Per NG tube QPM ??? folic acid 1,000 mcg Per NG tube Daily ??? ferrous sulfate 300 mg Per NG tube Every Other Day ??? chlorhexidine 15 mL Oral BID ??? pantoprazole 40 mg Intravenous BID ??? sodium chloride 0.9 % (flush) 5 mL Intravenous BID ??? thiamine 100 mg Intravenous Daily Drips: ??? dextrose 5% lactated ringers 100 mL/hr (09/10/22240) ??? tube feeding diet Stopped (09/08/222025) PRN: prochlorperazine, ondansetron, diclofenac, acetaminophen, polyethylene glycoL, senna, bisacodyL, sodium chloride 0.9 % (flush), lidocaine, glucose 40% oral geL OR dextrose 10% OR glucagon Allergies: Allergies Allergen Reactions ??? Meperidine Hcl CIS - violently ill ??? Metformin Other (See Comments) Severe diarrhea OBJECTIVE Vitals: T Temp: [36.4 ??C (97.5 ??F)-37 ??C (98.6 ??F)] HR Heart Rate: [78-94] BP BP: (92-130)/(50-59) RR Resp: [17-28] SpO2 SpO2: [90 %-100 %] IO 09/09 07 - 09/10 07 In: 3877 [I.V.:3547] Out: 2049 [Urine:2049] Wt Last 64.5 kg (142 lb 1.6 oz) Admit 69 kg Physical Exam: CONST: Awake, alert, no acute distress, working with PT outside the room HEENT: sclerae anicteric, DHT in place MSK: legs warm SKIN: No jaundice NEURO: Grossly intact PSYCH: Pleasant, appropriate affect Labs: Labs personally reviewed in eDH CBC: Recent Labs 09/09/22 0400 09/08/22 0200 09/07/22 0030 09/06/22 0100 09/05/22 0106 09/04/22 0026 WBC 6.9 6.9 6.2 6.3 4.9 6.7 HGB 9.8* 9.8* 9.1* 8.6* 8.7* 8.5* PLATELET 264 300 286 297 314 300 MCV 76.4* 75.1* 74.2* 74.0* 73.8* 73.4* RDWCV 30.7* Not Measured Not Measured Not Measured Not Measured Not Measured COAG: No results for input(s): PTT, INR, PT in the last 168 hours. CHEM: Recent Labs 09/10/22 0600 09/09/22 0400 09/08/22 0200 09/07/22 0030 09/06/22 0100 09/05/22 0106 09/04/22 0026 CREATININE 0.48* 0.56* 0.52* 0.53* 0.49* 0.49* 0.53* BUN 11 24* 25* 22* 21* 21* 30* NA 140 140 142 138 139 140 141 K 3.7 4.3 4.6 4.6 4.3 3.8 4.3 CL 105 102 103 103 104 103 104 CO2 27 28 30 29 28 28 29 MAGNESIUM 0.67* 0.86 0.90 0.86 0.81 0.91 0.88 CALCIUM 9.1 10.1 10.0 9.4 9.5 9.5 9.4 HEPATIC: No results for input(s): BILITOT, BILIDIR, ALKPHOS, AST, ALT, ALBUMIN, LIPASE in the last 168 hours. Invalid input(s): TPROT INFLAMM: No results for input(s): CRP in the last 168 hours. IMAGING: Reports and images personally reviewed in eDH. Images independently interpreted. XR Abdomen 1 view (Generic) Final Result Dobbhoff with tip at the level of the pyloric region. I have personally reviewed the image(s) and the resident's interpretation and agree with the findings, Camille Garcia MD at 09/10/2022 1:16 AM Thank you for letting us participate in the care of this patient. If you are a health care provider and have any questions regarding this report, please contact the number below. For patients who have questions please contact the health acute care physician that requested your imaging first. Electronically signed by: Camille Garcia MD, [facility] ([phone]), at 09/10/2022 1:16 AM XR Chest One View Final Result 1. Reposition enteric tube now extending below the diaphragm and included [id number]. 2. Similar appearance of elevated right hemidiaphragm and linear/patchy bibasilar opacities which may represent atelectasis or possibly aspiration. Thank you for letting us participate in the care of this patient. If you are a health care provider and have any questions regarding this report, please contact the number below. For patients who have questions please contact the health acute care physician that requested your imaging first. Electronically signed by: AUDI PERDOMO MD, [facility] ([phone]), at 09/05/2022 3:43 PM XR Abdomen 1 view (Generic) Final Result 1. On the chest radiograph at 2136 hours the enteric tube projects over the mid esophagus. On the abdominal radiograph at 2139 hours the enteric tube now projects below the diaphragm with tip partially visualized projecting over the left mid abdomen. 2. Lower lobe predominant patchy and reticular airspace opacities consistent with sequela of multifocal pneumonia. The appearance is improved compared to prior radiograph. Thank you for letting us participate in the care of this patient. If you are a health care provider and have any questions regarding this report, please contact the number below. For patients who have questions please contact the health acute care physician that requested your imaging first. Chest One View Final Result 1. On the chest radiograph at 2136 hours the enteric tube projects over the mid esophagus. On the abdominal radiograph at 2139 hours the enteric tube now projects below the diaphragm with tip partially visualized projecting over the left mid abdomen. 2. Lower lobe predominant patchy and reticular airspace opacities consistent with sequela of multifocal pneumonia. The appearance is improved compared to prior radiograph. Thank you for letting us participate in the care of this patient. If you are a health care provider and have any questions regarding this report, please contact the number below. For patients who have questions please contact the health acute care physician that requested your imaging first. Fluoro Barium Swallow (Modified/Video Swallow Pharynx) Final Result 1. Penetration of the airway and aspiration with thin liquids, especially with rapid sips of thin barium. 2. Flash penetration of nectar thick liquids from a straw. 3. Reflux of residual barium within the esophagus on multiple swallows. I have personally reviewed the image(s) and the resident's interpretation and agree with the findings, Alfonso Adams MD at 09/04/2022 10:57 AM Thank you for letting us participate in the care of this patient. If you are a health care provider and have any questions regarding this report, please contact the number below. For patients who have questions please contact the health acute care physician that requested your imaging first. Electronically signed by: Alfonso Adams MD, [facility] ([phone]), at 09/04/2022 10:57 AM XR Fluoro Barium Swallow (Modified/Video Swallow Pharynx) Final Result Abnormal modified barium swallow as above. Please see speech pathology report for further discussion. Thank you for letting us participate in the care of this patient. If you are a health care provider and have any questions regarding this report, please contact the number below. For patients who have questions please contact the health acute care physician that requested your imaging first. Electronically signed by: Aron Billings MD, [facility] ([phone]), at 08/31/2022 12:[address] Angiogram Coronary Arteries Final Result Coronary calcium score of 0, consistent with no detectable calcified atherosclerotic plaque burden. No evidence of stenosing soft plaque on the coronary CT arteriogram. CAD RADS 0 Ongoing bilateral pulmonary infectious/inflammatory changes with persistent consolidative opacity especially in the left lower lobe. This could represent a multifocal pneumonia. Recommend follow-up CT in 3 months to assess for resolution. Thank you for letting us participate in the care of this patient. If you are a health care provider and have any questions regarding this report, please contact the number below. For patients who have questions please contact the health acute care physician that requested your imaging first. Electronically signed by: Arlette Mays MD, [facility] ([phone]), at 08/27/2022 11:[address] Chest wo Contrast (Generic) Final Result Stable findings of multifocal pneumonia. No interval abnormality. Thank you for letting us participate in the care of this patient. If you are a health care provider and have any questions regarding this report, please contact the number below. For patients who have questions please contact the health acute care physician that requested your imaging first. Electronically signed by: MINH QUIROGA MD, [facility] ([phone]), at 08/27/2022 10:48 AM XR Hip 2-3 Views Left Final Result No radiographic evidence of infection. Thank you for letting us participate in the care of this patient. If you are a health care provider and have any questions regarding this report, please contact the number below. For patients who have questions please contact the health acute care physician that requested your imaging first. Electronically signed by: Viktor Cervantes MD, [facility] ([phone]), at 08/22/2022 12:43 PM XR Pelvis (Generic) Final Result No radiographic evidence of infection status post left hip ORIF. Thank you for letting us participate in the care of this patient. If you are a health care provider and have any questions regarding this report, please contact the number below. For patients who have questions please contact the health acute care physician that requested your imaging first. Electronically signed by: Richard Billings MD, [facility] ([phone]), at 08/22/2022 10:[address] Hip w Contrast Left Final Result 1. Uncomplicated left femoral neck ORIF with unchanged postoperative alignment. 2. Moderate skin thickening and subcutaneous stranding about the lateral left hip with lateral left thigh intramuscular edema and fascial thickening. These findings are nonspecific and may be seen in the routine postoperative setting. Underlying soft tissue infection with infectious or inflammatory myositis may also have this appearance. Correlation with physical examination, clinical symptoms, and laboratory findings is recommended. 3. 2.3 x 1.6 x 1.8 cm focus of more coalescent fluid attenuation centered in the subcutaneous fat of the posterolateral thigh roughly at the level of the proximal femoral fixation screw heads. There is no rim-enhancing to suggest a mature, organized abscess at this time. However, this finding could represent phlegmon in appropriate clinical context, or it could represent a postsurgical collection, the contents of which may be sterile or infected. 4. There is a rectal tube in place. However, there remains a large stool ball in the rectum with free fluid versus coalescent edema on both the anterior and posterior margins of the distended rectum. In appropriate clinical context, these findings could represent proctocolitis or stercoral colitis. I have personally reviewed the image(s) and the resident's interpretation and agree with the findings, Aicha Chowdhury MD at 08/21/2022 9:34 AM Thank you for letting us participate in the care of this patient. If you are a health care provider and have any questions regarding this report, please contact the number below. For patients who have questions please contact the health acute care physician that requested your imaging first. Electronically signed by: Aicha Chowdhury MD, [facility] ([phone]), at 08/21/2022 9:[address] Chest w Contrast Final Result 1. Multifocal lower lobe predominant consolidative opacities with additional upper lobe opacities consistent with multifocal pneumonia. Compared to the prior CT of 08/12/2022 the number and size of the opacities has decreased. Recommend follow-up imaging in 3-6 months to document complete resolution. 2. New small, sub-1 cm early cavitation of multiple opacities predominantly within the posterior left upper lobe and left lower lobe. 3. New curvilinear splenic lesions could represent infarct versus late arterial phase splenic arterial opacification. Thank you for letting us participate in the care of this patient. If you are a health care provider and have any questions regarding this report, please contact the number below. For patients who have questions please contact the health acute care physician that requested your imaging first. Brain wo Contrast Final Result No acute infarction, mass or mass effect. Thank you for letting us participate in the care of this patient. If you are a health care provider and have any questions regarding this report, please contact the number below. For patients who have questions please contact the health acute care physician that requested your imaging first. Chest for Verifying Vascular Access PICC Placement At Bedside Final Result PICC tip is in the superior vena cava above the right atrium. Thank you for letting us participate in the care of this patient. If you are a health care provider and have any questions regarding this report, please contact the number below. For patients who have questions please contact the health acute care physician that requested your imaging first. Electronically signed by: Alan De Guzman MD, [facility] ([phone]), at 08/19/2022 4:39 PM XR Chest One View Final Result 1. Increased bibasilar airspace opacities compared to radiograph 08/16/2022, concerning for an infectious/inflammatory process. A component of edema not excluded. 2. Overall decreased pulmonary edema. I have personally reviewed the image(s) and the resident's interpretation and agree with the findings, Alan De Guzman MD at 08/19/2022 3:14 PM Thank you for letting us participate in the care of this patient. If you are a health care provider and have any questions regarding this report, please contact the number below. For patients who have questions please contact the health acute care physician that requested your imaging first. Electronically signed by: Alan De Guzman MD, [facility] ([phone]), at 08/19/2022 3:[address] Head wo Contrast (Generic) Final Result No acute intracranial process. Thank you for letting us participate in the care of this patient. If you are a health care provider and have any questions regarding this report, please contact the number below. For patients who have questions please contact the health acute care physician that requested your imaging first. Electronically signed by: Antonio Jordan MD, [facility] ([phone]), at 08/18/2022 3:18 PM XR Abdomen 1 view (Generic) Final Result Status post Dobbhoff tube placement with catheter tip terminating at the approximate position of greater curvature. I have personally reviewed the image(s) and the resident's interpretation and agree with the findings, Jenn Pina MD at 08/17/2022 2:31 PM Thank you for letting us participate in the care of this patient. If you are a health care provider and have any questions regarding this report, please contact the number below. For patients who have questions please contact the health acute care physician that requested your imaging first. Head wo Contrast (Generic) Final Result No acute intracranial abnormality and no change from prior Thank you for letting us participate in the care of this patient. If you are a health care provider and have any questions regarding this report, please contact the number below. For patients who have questions please contact the health acute care physician that requested your imaging first. Electronically signed by: Moustapha Correa MD, [facility] ([phone]), at 08/16/2022 11:19 PM XR Chest One View Final Result PA catheter has a persistent loop near the tip, similar to the prior comparison study. Improved pulmonary edema. Thank you for letting us participate in the care of this patient. If you are a health care provider and have any questions regarding this report, please contact the number below. For patients who have questions please contact the health acute care physician that requested your imaging first. Electronically signed by: Alfonso Adams MD, [facility] ([phone]), at 08/16/2022 10:56 AM XR Abdomen 1 view (Generic) Final Result The enteric tube sidehole is not definitively subdiaphragmatic. Recommend advancement. Preliminary report signed by: Carlos Wolff at 08/15/2022 9:00 AM I have personally reviewed the image(s) and the resident's interpretation and agree with the findings, Liliane Adams MD at 08/15/2022 9:05 AM Thank you for letting us participate in the care of this patient. If you are a health care provider and have any questions regarding this report, please contact the number below. For patients who have questions please contact the health acute care physician that requested your imaging first. Electronically signed by: Liliane Adams MD, [facility] ([phone]), at 08/15/2022 9:05 AM XR Abdomen 1 view (Generic) Final Result Nonspecific/nondiagnostic appearance of the abdomen, with large stool burden in the RIGHT hemiabdomen and pelvis. Thank you for letting us participate in the care of this patient. If you are a health care provider and have any questions regarding this report, please contact the number below. For patients who have questions please contact the health acute care physician that requested your imaging first. Chest One View Final Result FINDINGS/IMPRESSION: * RIGHT neck central catheter redemonstrated terminating over the region of the pulmonary trunk, now uncoiled distally although the tip is looped. * Moderate pulmonary edema redemonstrated. * ET tube projects similar. Thank you for letting us participate in the care of this patient. If you are a health care provider and have any questions regarding this report, please contact the number below. For patients who have questions please contact the health acute care physician that requested your imaging first. Chest One View Final Result FINDINGS/IMPRESSION: * Moderate pulmonary edema. * No confluent airspace opacity otherwise seen. * Cannot exclude small pleural effusions. * Cardiomediastinal contours appear within normal limits. * Endotracheal tube tip projects 3.8 cm above the consuelo. * RIGHT neck central catheter, distal catheter coiled over the region of the RIGHT ventricle and pulmonary trunk. Thank you for letting us participate in the care of this patient. If you are a health care provider and have any questions regarding this report, please contact the number below. For patients who have questions please contact the health acute care physician that requested your imaging first. Film Library- Storage Only DX Chest Final Result Film Library- Storage Only CT Head Final Result Film Library- Storage Only DX Chest Final Result Film Library- Storage Only CT Chest Final Result Film Library- Storage Only DX Chest Final Result Film Library- Storage Only DX Pelvis Final Result Film Library- Storage Only DX Lower Extremity Final Result IR Ultrasound in IR (Results Pending) XR Pelvis and Hip 2 Views Left (Results Pending) IR G-Tube Placement (Results Pending) ENDOSCOPY: Reports and images personally reviewed in eDH ASSESSMENT & PLAN: Ishan Irving 62 y.o./ w/ PMH of BE with esophageal stricture, bipolar disorder, T2DM, hx alcohol use c/b chronic pancreatitis (now sober), recent admission for femoral neck fracture s/p surgical fixation adm after found her down/unresponsive at home. Her hospital course has been complicated by acute hypoxic respiratory failure and somnolence requiring intubation. She was also found to have a newly reduced EF that is felt to be Takotsubo cardiomyopathy now on goal-directed medical therapy for heart failure with reduced ejection fraction and now ongoing dysphagia. She is s/p EGDw/gen surg yesterday with impassible stricture for which we are re-engaged. Discussed and seen with her outpatient grain blender, Dr. Dejesus. Agree with placement of PEGw/IR for nutrition and sustenance. Will plan to have close f/u as an outpt with Dr. Dejesus. Patient seen with Dr. Oleg Young MD PGY-4, Gastroenterology ADDENDUM: I examined Mr. Huang who I know well as an outpatient with Dr. Young and I agree withthe assessment and plan as outlined. She will need to have by IR to an IR guided PEG tube placementand started on tube feeds. We will see her as an outpatient to help dilate her esophagus due to hersevere peptic stricture. * Plan of Care - Rosie Anguiano RN - 09/10/2022 4:05 AM EDT OUTCOME EVALUATION NOTE: OUTCOME SUMMARY: A/Ox4 with flat affect. C/o pain in L leg. VSS on tele & 1LNC. Bilat UE tremors. Pt went to OR to have PEG placed. Per report, unable to place PEG d/t obstruction and Dobhoff inserted instead. KUB obtained prior to returning to floor (see results). MD placed nursing communication that ok to use. However, difficult to flush when administering meds- MD aware & changed the status to do not use Dobhoff (see nursing communication). Pt remains NPO rest of shift with plan to reassess during day shift. IV D5LR infusing @100ml/hr. BG obtained Q4, insulin given per JUL. Incision in L greater trochanter, open to air with angélica -C/D/I, no drainage, no redness. External cath changed, incontinence care provided (see Flowsheets). 2A w/ walker. Assessment as filed. Safety maintained. Will continue to monitor. PLAN MOVING FORWARD: Tele NPO- Do not use Dobhoff Continuous IVF VS Q4 BG Q4 DC planning per CM INDIVIDUALIZED FALL PREVENTION INTERVENTIONS: Bed alarm set, wheels locked and bed in lowest position, side rails up x3, call marshall/personal itemswithin reach, purposeful hourly rounding, room near nurse's station Patient-specific fall risk factors per assessment: [current deficits]: Generalized weakness, medication, O2 tubing Assistance [level of assistance required for transfers and ambulation]: 2A with walker Supervision [direct monitoring required during toileting and ADLs]: Hands-on Surveillance [continuous indirect monitoring]: Catrachito Mckoy Patient-specific fall prevention interventions for sensory deficits provided, if applicable: [X] N/A CPG GOAL OUTCOME EVALUATION: * Op Note - Audi Russ MD - 09/10/2022 12:40 AM EDT [facility] Operative Note Name: Ishan Irving : 1960 Date of surgery: 09/10/2022 Surgeon: Audi Russ MD assistant professor of marine biology: Ede De Dios MD Preoperative dx: 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 year old female with a PMHx of L femoral neck fracture,??bipolar disorder with catatonic episodes, resolving medication- induced Parkinsonism, IDDM,??h/o alcoholism and chronic pancreatitis, iron deficiency anemia,??and GERD??c/b??esophagitis &??Farrell's esophagus. She was admitted to [facility] on 08/14/2022 with mixed shock and stress cardiomyopathy. Dysphagia was noted after extubation and she failed a modified barium swallow. She has a small bore feeding tube in place for enteral access. An EGD 07/03/2023 noted a strictured region at ~25-30 cm, which was biopsiedand able to be traversed. Pathology returned benign, consistent with Farrell's esophagus. CT chest 08/27/22 noted stable appearing esophageal wall thickening. After discussion, it was decided to proceed with PEG attempt. Findings: - Procedure was performed in the OR - Flexible esophagogastroduodenoscope was utilized for direct internal procedural guidance and visualization - A tight stricture was encountered at ~25 cm. Mucosa was grossly inflamed at this location. The opening measured ~5 mm. The EGD scope could not traverse. A bronchoscope set up with oxygen flow couldnot traverse. The PEG snare could be passed through but the scope would not follow over the wire. - SBFT was replaced and bridled. The EGD scope was used to visualize passage into the stricture opening. - EBL: nil - wound class: 2 (clean/contaminated) Anesthesia: G-OETT Specimen removed: none Operative narrative: Patient was positioned and secured. Mechanical and pharmacologic DVT prophylaxis was utilized. An EGD scope was introduced per os. The esophagus was successfully intubated under direct vision. The SBFT was removed. The scope was advanced to a tight stricture. This was at ~25 cm. The mucosa was grossly inflamed at this location. The opening measured ~5 mm and would not dilate with scope pressure. The EGD scope could not traverse. No smaller enteroscopes were available. A bronchoscope was set up with oxygen high flow fto provide insufflation. This could not traverse. The PEG snare could be passed out of the working channel and through the stricture but the scope would not follow over the wire. A new SBFT was obtained and passed via the L nares without difficulty. It was bridled in position after the EGD scope was used to visualize passage directly into the stricture opening. Thank you for allowing me to participate in the care of your patient. Audi Russ MD 09/10/2022 12:40 AM Attestation: Case Date: 09/09/2022 - 09/10/2022 I was present and I participated during the entire procedure (does not need to include opening and closing). Audi Russ MD 09/10/2022 * Care Management - Marybeth Shelley RN - 09/09/2022 8:12 AM EDT OFFICE OF CARE MANAGEMENT PROGRESS NOTE LOS: Hospital Day 26 days Chart reviewed, care reviewed with primary team and at interdisciplinary rounds. Patient continues to meet inpatient level of care related to: pending PEG placement Decision Maker: Self Functional status prior to admission: Independent (was using a walker per spouse for her post hip surgery recovery) Home Environment: Others in the home: spouse, pet(s) (dog). Current Living Arrangements: home/apartment/condo. Accessibility Concerns: one level and BM; 3 steps to enter. Current Functional Ability: Assistive Person and Equipment *2 assist with FWW/gait belt DME used at home: walker - rolling (for hip recovery) DME Needed at Discharge: No Patient is insured through: Primary Insurance: [place] Payor: [place] / Plan: [place] PRIMARY CARE PLUS / Product Type: *No Product type* / Secondary Insurance: N/A Last Physical Therapy Recommendation: acute rehabilitation facility with to be determined Last Occupational Therapy Recommendation: acute rehabilitation facility with to be determined Plan for discharge is: Nursing Home Facility / Swing Outpatient Agency/Support Group Needs: None Agency Referrals: [facility] - no response [facility] - declined, high cost medication and would need to absorb cost of rehab [facility] - no response Transportation: Barriers to discharge: Discharge planning Supports: Caregiver support Plan going forward: Plan for PEG today, continues to have DHT/cyclic TF for nutritional support. S/p ORIF for left femur fracture, currently requiring 2 assist FWW/gait belt for mobility. Spouse and patient gave rehab choices, current barrier is TF via [facility]GT and that patient current insurance does not have a rehab benefit. Patient will need to be applied for LT Medicaid. Discussed with patient/spouse. Referral sent to [facility]. Care Management will continue to follow and assist with discharge planning and coordination of care as indicated. Anticipated Date of Discharge: 09/10/2022 Marybeth Shelley RN, BSN Deck Engine Operator - Medicine Office of Care Management Office: Pager: [phone] * Plan of Care - Mac Mcmillan RN - 09/09/2022 2:12 AM EDT ?? OUTCOME EVALUATION NOTE: ?? OUTCOME SUMMARY: ?? Pt AAO4. Pt voiced I'm feeling I'm wasting my time in here, emotional support given, offered BIT but pt refused, will attempt to ask again. DHT in place and patent, taped to nose. Cyclic TF stoppedat around 09/08 per JUL and held in morning per Tapan Ernst MD as planned for PEG on 09/09. VSSon RA, except BP soft 90/47, notified, IVF D5 LR ordered and running @ 100mL/hr. Rechecked BP was 108/51. Denied any pains, CP, SOB, N/V, DVAIS. Meds given per JUL. BG monitored and insulin given perMAR. Voiding w/o issue using purewick. No BM. Assessment as filed. Safety maintained. No other issues. Will CTM and notify of any changes. ?? PLAN MOVING FORWARD: ?? VS Q4 BG Q4 Cyclic TF/ NGT care/ Plan for PEG IVF D/c planning ?? INDIVIDUALIZED FALL PREVENTION INTERVENTIONS: ?? Patient-specific fall risk factors per assessment: [current deficits]: gen weakness, medical equipment ?? Assistance [level of assistance required for transfers and ambulation]: 2A w/ gait marshall/ 1A in bed ?? Supervision [direct monitoring required during toileting and ADLs]: Hands/eyes on ?? Surveillance [continuous indirect monitoring]: Bed alarm, call marshall w/in reach, masimo, purposeful rounding, room close to nursing station ?? Patient-specific fall prevention interventions for sensory deficits provided, if applicable: [X] N/A ? CARE PLAN GOAL OUTCOME EVALUATION: ? * Consult Note - Gaby Matos RN - 09/08/2022 8:00 AM EDT Consult received for PICC line removal and PIV insertion. Introduced myself to patient and explained that md would like to DC PICC line and replace with PIV. Educated that I would look with US beforepulling PICC line. Patient refused this RN to place PIV and pull PICC. PICC line due to patient inadequate access. Recommend leaving PICC until DC. * Plan of Care - Mac Mcmillan RN - 09/08/2022 2:43 AM EDT OUTCOME EVALUATION NOTE: OUTCOME SUMMARY: Pt arrived from ISCU, report received from ISCU RN. AAO4, VSS on RA. Pt oriented to room and instructed how to use call marshall. Bed alarm on, in low position, locked w/ 3 side rails up. No complaints at this time. Been resting well in bed overnight. Denied any pains, CP, SOB, N/V. DHT in place and patent, taped to nose. Cyclic TF held in morning per Tapan Ernst MD request as planned for PEG on 09/08. Meds given per JUL. BG monitored and insulin given per JUL. Voiding w/o issue using purewick, see I/O. No BM. Assessment as filed. Safety maintained. No other issues. Will CTM and notify of any changes. PLAN MOVING FORWARD: VS Q4 BG Q4 Cyclic TF/ NGT care/ Plan for PEG D/c planning INDIVIDUALIZED FALL PREVENTION INTERVENTIONS: Patient-specific fall risk factors per assessment: [current deficits]: gen weakness, medical equipment Assistance [level of assistance required for transfers and ambulation]: 2A w/ gait marshall/ 1A in bed Supervision [direct monitoring required during toileting and ADLs]: Hands/eyes on Surveillance [continuous indirect monitoring]: Bed alarm, call marshall w/in reach, masimo, purposeful rounding, room close to nursing station Patient-specific fall prevention interventions for sensory deficits provided, if applicable: [X] N/A CARE PLAN GOAL OUTCOME EVALUATION: * Plan of Care - Gaby Carrington RN - 09/07/2022 6:51 PM EDT OUTCOME EVALUATION NOTE: OUTCOME SUMMARY: Patient reports not sleeping well at night and that the lack of windows in her room is contributingnegatively to her mental health. Patient's expressed similar concerns this morning when visiting. Patient does have transfer orders, charge poster notified of patient's and her husbands request to transfer to a floor. Tube feeds continued through DHT, patient reports feeling of fullness, then later had multiple episiodes of nausea and vomiting. PRN zofran given, and orders received for PRN compazine as well; geospatial program management officer aware and tube feeding orders adjusted. External catheter in place andreplaced this shift as needed. Patient worked with PT today. CHG bath given. PLAN MOVING FORWARD: Transfer to floor when bed available PT/OT BG q4 PEG placement this week * Plan of Care - Virginie Riggs RN - 09/07/2022 4:18 AM EDT OUTCOME EVALUATION NOTE: OUTCOME SUMMARY: Pt AAOx4, VSS on RA. Cyclic TF finished around 20:00 after pauses during dayshift. External cath changed, 2x unmeasured urine output. q4BG maintained. AM labs sent. SICU charge attempted to bridle DHT, unsuccessful. Sutures in place on L hip from previous surgery. Pt NPO give meds. Due for floor bed. PLAN MOVING FORWARD: Downgrade when bed available, promote sleep, awaiting PEG placement INDIVIDUALIZED FALL PREVENTION INTERVENTIONS: Patient-specific fall risk factors per assessment: [current deficits]: Lines, Ivs, generalized weakness Assistance [level of assistance required for transfers and ambulation]: Ax2 Supervision [direct monitoring required during toileting and ADLs]: Direct Surveillance [continuous indirect monitoring]: Renteria monitor, room near RN station, call marshall answered in person, bed alarm set Patient-specific fall prevention interventions for sensory deficits provided, if applicable: [X] No CPG GOAL OUTCOME EVALUATION: * Plan of Care - Merly Garcia RN - 09/06/2022 5:08 AM EDT OUTCOME EVALUATION NOTE: OUTCOME SUMMARY: Ishan is A&O x4, flat affect. Noted to be confused with word salad @ ~2215, paged. Neuro assessment WDL, pt A&O x4. VSS on RA, required 2 L NC while asleep. Pt noted to be hypotensive, paged, 500 ml bolus admin per orders. Intermittently bradycardic, as low as 40s, not sustaining, aware. DHT in R nostril taped to nostril center & cheek. Ext cath in place, AUOP, incontinence care provided PRN. No BM this shift. BUE hand tremors intermittently noted on assessment, MD aware.Left hip pain, PRN tylenol & diclofenac given. Labs drawn, pt rested between care. PLAN MOVING FORWARD: Bridle DHT Cyclic TF Monitor BP Mobilize OOB Downgrade? INDIVIDUALIZED FALL PREVENTION INTERVENTIONS: Patient-specific fall risk factors per assessment: [current deficits]: Left hip fx, hypotension Assistance [level of assistance required for transfers and ambulation]: 1-2A Supervision [direct monitoring required during toileting and ADLs]: Hands on Surveillance [continuous indirect monitoring]: Renteria ISCU monitoring, call light within reach, purposeful rounding, environmental modifications, bed alarm set Patient-specific fall prevention interventions for sensory deficits provided, if applicable: [X] N/A CPG GOAL OUTCOME EVALUATION: * Plan of Care - Merly Garcia RN - 09/05/2022 5:18 AM EDT Assumed care of pt @ 0100 from [facility]. A&Ox4, VSS on 2 L NC. TF restarted per orders in [facility], turned off per MD verbal order at 0600. Intermittent cough nonproductive, no S/S of aspiration. Externalcath in place, incontinence care provided PRN. 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 C/oleft hip pain, PRN tylenol, diclofenac gel given with reported minimal relief, PRN toradol given x1. Q4h FSBG completed, SSI admin per JUL. Pt rested between care. * Consult Note - Shea Lainez MD - 09/04/2022 10:29 PM EDT General Surgery Consultation Note Date of Consultation: 09/04/2022 Consult Service: General Surgery Responsible Attending: Migel Place of Service: Inpatient Unit Reason for Consult: We are seeing Ishan Irving at the request of Tenisha Miller of the medicine service for the evaluation of enteral access. I have reviewed the available records, interviewed, and examined the patient. Active Problem List: Active Hospital Problems Diagnosis ??? Bipolar disorder ??? T2DM (type 2 diabetes mellitus) Resolved Hospital Problems Diagnosis Date Resolved ??? Shock 08/22/2022 Active Non-Hospital Problems Diagnosis ??? Neuroleptic-induced parkinsonism ??? BMI 37.0-37.9, adult ??? GERD (gastroesophageal reflux disease) ??? Farrell's esophagus History of Present Illness: Ishan Irving is a 62 y.o. 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.5 years) c/b chronic pancreatitis, iron deficiency anemia,??GE RD??c/b??esophagitis &??Farrell's esophagus, who was admitted to [facility] on 08/14/2022 (now on Hospital Day #21), and transferred to Hospital Medicine team from Cardiology on 08/30 for mixed shock withconcern for stress cardiomyopathy (Takotsubo Cardiomyopathy). Due to her history of GERD, and intubation during this hospital stay, she consequently suffered dysphagia, failing a modified barium swallow. Prior to the MBS, she had a Dobbhoff tube in place for enteral access. Enteral access is urgent within 24 hours for this patient because she experienced catatonic bipolar episodes during this hospitalization which only bupropion were able to alleviate, withno IV alternative. The patient reports that her last off tube was very uncomfortable and that she does not wish to repeat the experience. However she is amenable to PEG. She has a number of documented scopes for GERD but no documented surgeries. She is not on anticoagulation or steroids. Review of Systems: ROS per HPI Past Medical and Surgical History: Past Medical History: Diagnosis Date ??? Bipolar disorder 02/12/2022 Past Surgical History: Procedure Laterality Date ??? PRO COLONOSCOPY, BIOPSY N/A 03/20/2016 COLONOSCOPY FLEXIBLE, WITH BX performed by David Dejesus MD at [facility] ??? PRO COLONOSCOPY, DIAGNOSTIC N/A 03/01/2020 COLONOSCOPY, DIAGNOSTIC performed by David Dejesus MD at [facility] ??? PRO ENDOSCOPIC US EXAM, ESOPH N/A 03/31/2022 UPPER EUS- ENDOSCOPIC ULTRASOUND performed by David Dejesus MD at [facility] ??? PRO UPPER GI ENDOSCOPY, BIOPSY N/A 04/03/2014 UPPER GASTROINTESTINAL ENDOSCOPY,WITH BIOPSY SINGLE OR MULTIPLE performed by David Dejesus MDat [facility] ??? PRO UPPER GI ENDOSCOPY, BIOPSY N/A 03/20/2016 EGD WITH BIOPSY performed by David Dejesus MD at [facility] ??? PRO UPPER GI ENDOSCOPY, BIOPSY N/A 11/22/2018 EGD WITH BIOPSY (WRVU 2.49) performed by David Dejesus MD at [facility] ??? PRO UPPER GI ENDOSCOPY, BIOPSY N/A 03/01/2020 UPPER GASTROINTESTINAL ENDOSCOPY,WITH BIOPSY SINGLE OR MULTIPLE (WRVU 2.49) performed by David Dejesus MD at [facility] ??? PRO UPPER GI ENDOSCOPY, BIOPSY N/A 09/23/2021 EGD WITH BIOPSY (WRVU 2.49) performed by David Dejesus MD at [facility] ??? PRO UPPER GI ENDOSCOPY, BIOPSY N/A 03/31/2022 EGD WITH BIOPSY (WRVU 2.49) performed by David Dejesus MD at [facility] ??? PRO UPPER GI ENDOSCOPY, BIOPSY N/A 07/03/2022 EGD WITH BIOPSY (WRVU 2.49) performed by David Dejesus MD at [facility] ??? PRO UPPER GI ENDOSCOPY, DIAGNOSTIC N/A 04/03/2014 EGD, UPPER GI ENDOSCOPY performed by David Dejesus MD at [facility] ??? PRO UPPER GI ENDOSCOPY, DIAGNOSTIC N/A 03/01/2020 EGD, UPPER GI ENDOSCOPY performed by David Dejesus MD at [facility] Medications: Current Facility-Administered Medications: ??? barium sulfate (E-Z Disk) tablet 0-700 mg, 0-700 mg, Oral, Once PRN, Low Miller MD ??? metoprolol tartrate (Lopressor) tablet 12.5 mg, 12.5 mg, Oral, 2 times per day, Irwin Jones MD ??? acetaminophen (Tylenol) suppository 650 mg, 650 mg, Rectal, Q6H PRN, Irwin Jones MD ??? [START ON 09/05/2022] buPROPion (Wellbutrin) tablet 100 mg, 100 mg, Oral, Daily, Irwin Jones MD ??? Valproate (Depakene) (50 mg/mL) oral liquid 300 mg, 300 mg, Oral, Q6H, Irwin Jones MD ??? POCT Fingerstick Glucose, , , Q4H AND insulin lispro (HumaLOG;Admelog) (100 unit/mL) subcutaneous injection vial 1-4 Units, 1-4 Units, Subcutaneous, Q4H LAZARUS, Elsie Erickson, CELL OPERATION SUPERVISOR ??? [START ON 09/05/2022] insulin glargine-ygfn (Semglee) (100 unit/mL) subcutaneous injection vial 7 Units, 7 Units, Subcutaneous, Daily, Elsie Erickson, CELL OPERATION SUPERVISOR ??? LORazepam (Ativan) (2 mg/mL) injection 0.3 mg, 0.3 mg, Intravenous, Once, Liz Farias MD ??? lidocaine (Glydo) 2 % gel 11 mL, 11 mL, Topical (Top), Once, Liz Farias MD ??? lidocaine (Xylocaine) 1% (10 mg/mL) injection 150 mg, 15 mL, Subcutaneous, Once, Liz Farias MD ??? melatonin tablet 6 mg, 6 mg, Oral, Nightly, Irwin Jones MD, 6 mg at 09/03/22 2136 ??? insulin lispro protamine-insulin lispro (HumaLOG MIX 75/25) (100 units/mL) subcutaneous injection vial 33 Units, 33 Units, Subcutaneous, Daily, Elsie Erickson APRN, 33 Units at 09/03/22 0552 ??? miconazole nitrate (Remedy Phytoplex) 2 % ointment, , Topical (Top), BID, Irwin Jones MD, Given at 09/04/22 0900 ??? tube feeding diet, 1,320 mL, Per NG tube, Cyclic, Irwin Jones MD, Last Rate: 110 mL/hrat 09/03/22 1626, 1,320 mL at 09/03/22 1626 ??? sacubitriL-valsartan (Entresto) 24-26 mg per tablet 1 tablet, 1 tablet, Oral, BID, Irwin Jones MD, 1 tablet at 09/04/22 0817 ??? empagliflozin (Jardiance) tablet 10 mg, 10 mg, Oral, Daily, Irwin Jones MD, 10 mg at 09/04/22 0810 ??? ondansetron (pf) (Zofran) (2 mg/mL) injection 4 mg, 4 mg, Intravenous, Q8H PRN, Reynaldo Avila MD, 4 mg at 09/04/22 0341 ??? iohexoL (Omnipaque) (350 mg/mL) solution 0-200 mL, 0-200 mL, Intravenous, Once PRN, Sonny Pearson, ??? QUEtiapine (SEROquel) tablet 100 mg, 100 mg, Oral, Nightly, Irwin Jones MD, 100 mg at 09/03/22 2136 ??? lidocaine (Lidoderm) 5% patch 3 patch, 3 patch, Transdermal, Q24H, Neva Tomlin MD, 3 patch at 08/29/22 1102 ??? polyethylene glycoL (Miralax) packet 17 g, 17 g, Per NG tube, Daily PRN, Moustapha Gallegos MD, 17 g at 08/30/22 1116 ??? senna (Senokot) tablet 8.6 mg, 8.6 mg, Oral, BID PRN, Moustapha Gallegos MD ??? bisacodyL (Dulcolax) suppository 10 mg, 10 mg, Rectal, Daily PRN, Moustapha Gallegos MD ??? ergocalciferoL (vitamin D2) (8,000 units/mL) oral liquid 50,000 Units, 50,000 Units, Per NG tube, Weekly, Neva Tomlin MD, 50,000 Units at 09/01/22 0850 ??? enoxaparin (Lovenox) (40 mg/0.4 mL) subcutaneous injection 40 mg, 40 mg, Subcutaneous, Daily, Neva Tomlin MD, 40 mg at 09/04/22 0812 ??? atorvastatin (Lipitor) tablet 80 mg, 80 mg, Per NG tube, QPM, Reynaldo Avila MD, 80 mg at 09/03/22 1607 ??? folic acid (Vitamin B9) tablet 1,000 mcg, 1,000 mcg, Per NG tube, Daily, Reynaldo Avila MD, 1,000 mcg at 09/04/22 0812 ??? ferrous sulfate (60 mg/mL) oral liquid 300 mg, 300 mg, Per NG tube, Every Other Day, Reynaldo Avila MD, 300 mg at 09/04/22 0812 ??? potassium chloride 20 mEq in sterile water 100 mL infusion, 20 mEq, Intravenous, Q1H PRN, Stopped at 08/21/22 1808 OR potassium chloride 20 mEq in sterile water 100 mL infusion, 20 mEq, Intravenous, Q1H PRN, Stopped at 08/21/22 0543 OR potassium chloride 20 mEq in sterile water 100 mL infusion, 20 mEq, Intravenous, Q1H PRN, Tyler Cobb MD, Stopped at 08/24/22 0531 ??? chlorhexidine (Peridex) 0.12 % oral solution 15 mL, 15 mL, Oral, BID, Jigar Streeter MD, 15 mL at 09/04/22 0809 ??? pantoprazole (Protonix) injection 40 mg, 40 mg, Intravenous, BID, Jigar Streeter MD, 40 mg at 09/04/22 0816 ??? sodium chloride 0.9 % (flush) (BD PosiFlush Normal Saline 0.9) flush 5 mL, 5 mL, Intravenous, BID, Tyler Cobb MD, 5 mL at 09/04/22 0817 ??? sodium chloride 0.9 % (flush) (BD PosiFlush Normal Saline 0.9) flush 5-20 mL, 5-20 mL, Intravenous, Q1 Min PRN, Tyler Cobb MD ??? lidocaine (Xylocaine) 1% (10 mg/mL) injection 3 mg, 0.3 mL, Subcutaneous, Once PRN, Tyler Cobb MD ??? nitroGLYcerin (Nitrostat) disintegrating tablet 0.4 mg, 0.4 mg, Sublingual, Q5 Min PRN, Tyler Cobb MD ??? glucose (Glutose) 40% oral geL, 15-30 g of glucose, Buccal, Q30 Min PRN OR dextrose 10% infusion, 250 mL, Intravenous, Q30 Min PRN, Stopped at 09/04/226 OR glucagon (Glucagen) (1 mg/mL) injection solution 1 mg, 1 mg, Intramuscular, Q30 Min PRN, Tyler Cobb MD ??? thiamine (Vitamin B-1) (100 mg/mL) injection 100 mg, 100 mg, Intravenous, Daily, Tyler Cobb MD, 100 mg at 09/04/22 0817 Prior To Admission Medications: Medications Prior to Admission Medication Sig Dispense Refill Last Dose ??? divalproex ER (Depakote ER) 500 mg ER 24 hr tablet Take 1,000 mg by mouth daily. Take two tablets every afternoon ??? divalproex ER (Depakote ER) 250 mg ER 24 hr tablet Take 250 mg by mouth nightly. ??? pantoprazole EC (Protonix) 40 mg Tablet, [...] Take 50 mg by mouth daily. ??? Blood Sugar [...] for dosing. 15 mL 11 ??? Insulin Sidney, Disposable, (BD INSULIN PEN NEEDLE UF MINI) 31 x 3/16 Needle 1 Device by [facility].(Non-Drug; Combo Route) route 3 times daily as needed. 100 each 11 Allergies: Allergies Allergen Reactions ??? Meperidine Hcl CIS - violently ill ??? Metformin Other (See Comments) Severe diarrhea Family History: No family history on file. Social History and Habits: Social History Socioeconomic History ??? Marital status: Spouse name: Not on file ??? Number of children: Not on file ??? Years of education: Not on file ??? Highest education level: Not on file Occupational History ??? Not on file Tobacco Use ??? Smoking status: Former Years: Types: Cigarettes Quit date: 02/26/2021 Years since quittin.5 ??? Smokeless tobacco: Never Substance and Sexual Activity ??? Alcohol use: Not Currently Alcohol/week: 1.0 standard drink Types: 1 Glasses of wine per week ??? Drug use: Never ??? Sexual activity: Yes Partners: Male Other Topics Concern ??? Not on file Social History Narrative ??? Not on file Social Determinants of Health Financial Resource Strain: Not on file Food Insecurity: Not on file Transportation Needs: Not on file Physical Activity: Not on file Housing Stability: Not on file Physical Exam: Last Set of Vitals and Range over past 24 hours: Last value Range last 24 hrs Temperature Temp: 36.7 ??C (98.1 ??F) Temp: [36.2 ??C (97.2 ??F)-36.8 ??C (98.2 ??F)] Heart Rate Heart Rate: 77 Heart Rate: [63-87] Blood Pressure BP: 106/67 BP: (87-128)/(46-67) Respiratory Rate Resp: 18 Resp: [14-18] SpO2 SpO2: 96 % SpO2: [93 %-98 %] BMI: Weight: 68.9 kg (152 lb) (09/04/22 0554) BMI (Calculated): 31.77 BMI Classification: Obese Physical Exam General: NAD, resting comfortably HEENT: NCAT CVS: RR Pulm: NWOB Abd: Non-distended Ext: WWP Neuro: Grossly intact to conversation with slowed affect Laboratory (Last 24 Hours): Recent Labs 09/04/22 0026 WBC 6.7 HGB 8.5* HCT 28.1* PLATELET 300 Lab Results Component Value Date INR 2.0 08/15/2022 Radiology: N/A Assessment: Ishan Irving is a 62 y.o. Female in need of durable enteral access as well as urgent enteral access for PO medications due to dysphagia. She was amenable to an NG tube to bridge her to a morepermanent solution next week as it appears her dysphagia will be chronic. Recommendations: - 10F soft bore feeding tube placed, cleared radiographically and okay to use for medications. Placement well tolerated, no anxiolysis or sedatives required. - will consider for PEG next week. Consult service will continue to follow patient. Liz Farias MD 09/04/2022 ACS Attending Addendum I have seen the patient in person and reviewed the above history and I agree with the details as written. The assessment and plan were formulated in discussion with me and I agree with them as documented. Shea Lainez MD * Plan of Care - Colleen Arreguin RN - 09/04/2022 6:59 PM EDT Shift EVALUATION NOTE: Shift Summary: Pt AAOx4. Bed alarm maintained for high fall risk. VSS on RA. Pt denies CP and SOB. NGT removed perMD order prior to MBS. NSR on tele, see scanned documents. Pt upgraded to honey thick liquid diet, attempted to correct BG of 68 with thickened juice, and pudding. Pt regurgitated every attempt. 10% IV Dextrose infused to correct BG, 136 on recheck. See flow sheets for I&O. 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 PT worked with patient in gym. Aspiration precautions initiated and maintaining HOB elevated in locked position. Call marshall within reach. Plan Moving Forward: Upgrade to ISCU? Replace NGT for the weekend? CPG Outcome Evaluation: Problem: Adult Inpatient Plan of Care Goal: Plan of Care Review Outcome: Ongoing (Interventions Implemented as Appropriate) Goal: Patient-Specific Goal (Individualized) Outcome: Ongoing (Interventions Implemented as Appropriate) Goal: Absence of Hospital-Acquired Illness or Injury Outcome: Ongoing (Interventions Implemented as Appropriate) Goal: Optimal Comfort and Wellbeing Outcome: Ongoing (Interventions Implemented as Appropriate) Goal: Readiness for Transition of Care Outcome: Ongoing (Interventions Implemented as Appropriate) * Plan of Care - Nery Ott MD - 09/04/2022 6:46 PM EDT Brief GI Note: We saw and discussed the recent MBS and GAS STATION SUPERVISOR concerns. Based on Ishan's history, we know she has longstanding, severe gastroesophageal reflux disease, as noted on most recent EGD about 2 months ago.This is supported by today's study. Given this is chronic and she had a recent EGD without new or inter rudi pathology, we do not feel she needs additional endoscopic evaluation at this time. We are happy to further discuss endoscopically placing PEG if indicated pending her clinical course. While hospitalized, we agree with strict aspiration precautions and anti-reflux precautions (elevation of head of bed, anti reflux diet, continuing PPI etc) as reflux is often acutely worsened in patients who are hospitalized. Please re-consult GI with any questions/concerns or if PEG is felt to be a reasonable next intervention to discuss. Nery Ott MD PGY-4, Gastroenterology Fellow * Plan of Care - Colleen Arreguin RN - 09/03/2022 7:00 PM EDT Shift EVALUATION NOTE: Shift Summary: Pt AAOx4. Bed alarm maintained for high fall risk. VSS on RA. Pt denies CP and SOB. NSR w/ freq. PVCs on tele, see scanned documents. X1 episode of 10 beat run [place] - MD aware. Up to commode with OT, GAS STATION SUPERVISOR consulted. NGT maintained per protocol. Q2 turns maintained. PRN Zofran given X1. See flow sheetsfor I&O. L. 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 Spouse at bedside, call marshall within reach. Plan Moving Forward: MBS Dobhoff removal SNF placement CPG Outcome Evaluation: Problem: Adult Inpatient Plan of Care Goal: Plan of Care Review Outcome: Ongoing (Interventions Implemented as Appropriate) Goal: Patient-Specific Goal (Individualized) Outcome: Ongoing (Interventions Implemented as Appropriate) Goal: Absence of Hospital-Acquired Illness or Injury Outcome: Ongoing (Interventions Implemented as Appropriate) Goal: Optimal Comfort and Wellbeing Outcome: Ongoing (Interventions Implemented as Appropriate) Goal: Readiness for Transition of Care Outcome: Ongoing (Interventions Implemented as Appropriate) * Care Management - Marybeth Shelley RN - 09/03/2022 2:36 PM EDT OFFICE OF CARE MANAGEMENT PROGRESS NOTE LOS: Hospital Day 20 days Chart reviewed, care reviewed with primary team and at interdisciplinary rounds. Patient continues to meet inpatient level of care related to: acute metabolic encephalopathy, management of nstemi/stress cardiomyopathy, s/p treatment of sepsis. Also management of IV fluids as patient is not able to tolerate any PO intake. Decision Maker: Self Functional status prior to admission: Independent (was using a walker per spouse for her post hip surgery recovery) Home Environment: Others in the home: spouse, pet(s) (dog). Current Living Arrangements: home/apartment/condo. Accessibility Concerns: one level and BM; 3 steps to enter. Current Functional Ability: Assistive Person and Equipment *2 assist with FWW DME used at home: walker - rolling (for hip recovery) DME Needed at Discharge: No Patient is insured through: Primary Insurance: [place] Payor: [place] / Plan: [place] PRIMARY CARE PLUS / Product Type: *No Product type* / Secondary Insurance: N/A Last Physical Therapy Recommendation: acute rehabilitation facility, swing bed rehabilitation facility with to be determined Last Occupational Therapy Recommendation: acute rehabilitation facility, [facility] facility with to be determined Plan for discharge is: Nursing Home Facility / Swing Outpatient Agency/Support Group Needs: None Agency Referrals: Based on discussions with the multi-disciplinary healthcare team, the patient would benefit from SNF level of care at discharge. I have met with the manufacturers representative to: ?? discuss discharge planning needs. ?? provide the [facility], Office of Care Management letter from the New Media Strategist pertaining to rehabreferrals. ?? provide a letter describing our affiliations within the [facility] and educate about their right to choose where referrals are sent. ?? provide the CMS Star Quality Rating handout. ?? review the different levels of rehab including SNF, swing, and acute. ?? provide a list of facilities within their preferred geographic area. ?? request that they provide at least three choices for referral. They have requested referrals to: [facility] [address] [place] [address] [facility] (Previously [facility]) [address] [place] [address] [facility] [address] [place] [address] Does patient have COVID vaccine card: Yes; Copy obtained: No Note routed to a Hospitalist Program Director who will communicate referrals to facilities and provide any required information. Transportation: Ambulance or Family Barriers to discharge: Discharge planning Supports: Caregiver support Plan going forward: Patient transferred to Medicine. Palliative involved in ongoing GOC discussionswith patient/spouse . Currently receiving TF via NGT for nutrition, considering a PEG placement. Spouse and patient gave rehab choices, current barrier is TF via NGT. Care Management will continue tofollow and assist with discharge planning and coordination of care as indicated. Anticipated Date of Discharge: 09/07/2022 Marybeth Shelley RN, BSN Deck Engine Operator - Medicine Office of Care Management Office: Pager: [phone] * Consult Note - Aicha Mckeon MD - 09/03/2022 10:25 AM EDT Psychiatric Inpatient Consultation Follow Up Note Time of Consultation: 8:30 AM Reason for consultation: Concern for hypoactive delirium versus depression Information Sources: Patient. Family. Relationship to patient: . Electronic Medical Record. Chief Complaint (in patient's own words): I feel good today Interim History: Patient received 100 mg of IR formulation of Wellbutrin yesterday due to needing feeding tube. She still currently remains NPO. Patient denies any side effects this morning. She reports that her moodis improved, and that she feels like Wellbutrin is a good medication for her. She is able to spell WORLD for this examiner in the forwards order, however not backwards. She is able to spell CAT backwards. She is orientated to place, time, and her last name. Denies any current suicidal ideations, orhomicidal ideations. Patient is not seen with pressured speech, and she is linear on examination. Independent Collateral: N/A, reported that he was always available for collateral Review of Systems: Psychiatric: See above Physical Exam: Last value Range last 24 hrs Temperature Temp: 36.5 ??C (97.7 ??F) Temp: [36.5 ??C (97.7 ??F)-36.7 ??C (98.1 ??F)] Heart Rate Heart Rate: 89 Heart Rate: [71-89] Blood Pressure BP: 101/57 BP: (101-120)/(49-87) Respiratory Rate Resp: 14 Resp: [14-16] SpO2 SpO2: 95 % SpO2: [94 %-97 %] Mental Status Examination: Musculoskeletal System: ??? Muscle Strength/Tone (note atrophy, abnormal movements): No abnormal movements seen ??? Gait and Station: Not formally tested Psychiatric: Patient is sitting in hospital bed with tube feeds in place. She is orientated to place, time, and self. Her speech remains soft and slowed. She is linear and easy to follow. Mood is good, affect remains mainly flat, however, is slightly brighter compared to prior. She denies any suicidal ideations, homicidal ideations. She has not seen responding to internal stimuli. Assessment: 62F with bipolar disorder on seroquel and depakote (was previously on olanzapine but stopped in context of increased Parkinsonian sx), recent hip fracture s/p sx with related complications, admitted for stress cardiomyopathy to cardiology, then transferred to medicine for management of other/ongoing issues (sepsis, weakness, unable to eat on her own). ?? As of 09/03, patient is denying any side effects to the Wellbutrin, and noting improvement. We willcontinue at the 100 mg short release acting while on tube feeds, and eventually transition her to the 150 mg XL when she is able to take oral medications. At this time no medication changes recommended. Low concern for a bipolar switch with Wellbutrin, and patient remains linear and logical on examination without signs of deanna. Reports that she already has an outpatient psychiatric provider. Diagnoses (chronic, acute, include progression/severity): Depression in the context of a bipolar diagnosis Plan/Recommendations: - Please continue with Wellbutrin 100 mg daily and switch to 150 mg XL once able to take oral medications Patient on IEA Status? IEA: NO, patient is not on IEA and does not have any psychiatric contraindication to discharge at the time of this assessment. Recommendations were communicated to primary felt hat steamer. Aicha Mckeon MD 09/03/2022 Coding Determination 1. Problems/Diagnosis (check one): High Minimal refers to a single minor problem. Example: Poor sleep due to noise in the hospital room. Low refers to two minor problems, or one stable/uncomplicated illness. Examples: Major depression in remission; adjustment disorder with depressed mood. Moderate refers to one illness with new onset, progression, exacerbation, complication, or side effects; or two stable problems. Examples: Recurrent major depression with exacerbation or progression or side effects of treatment; stable schizophrenia and alcohol use disorder; acute alcohol withdrawal; anorexia with systemic symptoms such as bradycardia. High refers to one chronic problem with severe progression, exacerbation, or side effects; or one problem with threat to life or bodily function. Examples: any psychiatric illness with suicidal or homicidal ideation or thoughts of self- harm; delirium; any eating disorder with severe medical consequences; major depression with significant functional decline; any severe side effects of psychiatric interventions (NMS, hyponatremia, lithium toxicity syndrome, etc); any psychiatric illness meeting the severe specifier. 2. Data Review/Analysis (check one): Moderate Low refers to (1) review of notes and test results or (2) assessment from a collateral source. Moderate requires one of the following: ??? All three of the following: review of notes, review of test results, assessment from a collateral source. ??? Discussion of test interpretation or management with an external physician/provider (primary team included). High requires both of the following (same options from Moderate above): ??? All three of the following: review of notes, review of test results, assessment from a collateral source. ??? Discussion of test interpretation or management with an external physician/provider (primary team included). 3. Patient Risk (check one): High Minimal refers to minimal risk from additional testing/treatment. Example: Bereavement. No medications recommended. Low refers to low risk from additional testing/treatment. Example: only interventions are minimallyinvasive or otherwise low risk (serum labs, melatonin, continuing an SSRI). Moderate refers to moderate risk from additional testing/treatment. Examples: starting prescriptionmedication with only moderate risk. Moderate also includes diagnosis or treatment significantly limited by social determinants of health such as food/housing insecurity, transportation issues, financial limitations, etc. High refers to high risk from additional testing/treatment. Examples: therapies requiring monitoring of serum level (lithium, valproate), medications with specific identified risks (QTc-prolonging medications in certain patients, SSRIs in patients with risk of bleeding). Discussions of higher levels of psychiatric intervention/care (1:1 sitter, voluntary psychiatric hospitalization, IEA, ECT). Patients who may require medical interventions against their wishes when they lack capacity to refuse those interventions; patients who lack capacity to choose to leave the hospital AMA. Discussion of high risk interventions that may be necessary to ensure safety (parenteral medications for managementof agitation; restraints; security presence). Risk of acute withdrawal. Complexity of MDM Determination: Choose the appropriate level in the first 3 columns based upon what you indicated above. Then 2 outof 3 elements must be met to qualify for the highest appropriate level of complexity. Problems/Diagnosis Data Review/Analysis Patient Risk Complexity of Medical Decision-Making CPT CODE [] Minimal/Low [] Low [] Minimal/Low [] Low 74658 [] Moderate [x] Moderate [] Moderate [] Moderate 09029 [x] High [] High [x] High [x] High 78557 Final Coding Determination: High Associated attestation - Keenan Rey MD - 09/18/2022 1:06 PM EDT Psychiatry Attending Note I discussed this patient's situation with the resident but did not see the patient. I contributed to the formulation and treatment planning as documented in the resident's note. Keenan Rey MD Psychiatry Consultation Pager: [phone] * Consult Note - Ghulam Torres MD - 09/03/2022 10:18 AM EDT Serious Illness Conversation Date of Conversation: 09/03/2022 Discussion with: Patient + Agent/Surrogate ?? Understanding of illness: Accurate understanding of prognosis or disease trajectory I met with Ishan and her Antonio at bedside. They've been 25 years. Met on [employer] online 25 years ago. He went onto a chat group, made a lot of jokes and Ishan private messaged him. It's been love ever since. Ishan moved out here to [place] to be with Antonio from [place]. They have 2boys together (Estiven 23 in [employer] - Broker In Charge; and Richard 19 studying at [employer] in politics economics). They are so proud of them. Their joys include their boys and their home and dog Xeda (Great Humberto). Their strengths are family and sara (self described recovering catholics :)) they are spiritual. ?? Per Ishan, prior to this she had a fall that broke her left femoral neck. She got it fixed, went home and then the next day or so Antonio said she looked ashen and had an oximeter that showed a HR of 190 and a o2 sat of 76%. It's been 3 weeks since then and she's been in the hospital with significant deconditioning, and stress cardiomyopathy. Life prior to this was good. ADLs were completely independent. ?? Emotionally, Ishan has dealt with depression however she feels motivated at this time. Antonio relays to me there is the fire in her eyes to do what's needed. ?? I shared my understanding that nutrition/dysphagia/rehab are the big topic issues. We're trying to see if dobhoff can be removed or if a PEG is needed. In this, Ishan and Antonio are willing to do what is needed. They are communicating with their sons and are all supportive of each other. ?? Information preferences: All available information, including time-based prognosis Ishan and antonio feel well heard and have gotten clear information/communication from the medicalteams. ?? Prognostic information given: Function-based prognosis this is as strong as you will feel I shared that Ishan has a journey to recovery still. 3 weeks in bed amounts to months of rehab totry to get back to her prior strength. Again, she is ready and willing to do what is needed. ?? Goals: ?? Fears and worries: Other (describe in free text box) No major worries at this time. Just really figuring out this eating and drinking and nutrition aspect. ? Strengths: Family Sara or spirituality As above. [place] family. 2 sons Richard and Estiven. Self describe recovering Catholics with a smile. Will engage Marketing Automation Analyst for prayers of healing and support alongside Healing arts. ?? Critical abilities: Cognitive ability (eg, meaningfully interact with loved ones - describe necessary abilities below) Physical ability (eg, toileting/bathing self-describe necessary abilities below) ?? Trade-offs: At present, given the severity of illnesses and prior joys and quality of life, Ishan is willing to endure what it takes to see what is possible to get back home. Time in the hospital, rehab and even consideration of a PEG. ?? Family/Agent/Surrogate awareness: DPOA/Surrogate present for discussion ?? Recommendations made: # Press forward # Ishan is ready too # Well supported by loving family # Full Code is aligned with goals # PEG if needed # Rehab rojelio # Healing arts engaged # Marketing Automation Analyst referral made # Pet Therapy if they are around # Depression seems controlled and managed per psychiatry # Please reach out if any concerns or worries come up! No advance directives on file; but no red flags at this point warranting rapid completion of such. Ghulam Torres MD Palliative 60 minutes were spent over the course of the day on this patient encounter including time spent in chart review, assessment of and counseling with the patient, counseling with the patient's pediatric care coordinator(s), coordination with the consulting service, coordination with palliative IDT members and in doc umentation. * ACP (Advance Care Planning) - Ghulam Torres MD - 09/03/2022 10:18 AM EDT Serious Illness Conversation Date of Conversation: 09/03/2022 Discussion with: Patient + Agent/Surrogate Understanding of illness: Accurate understanding of prognosis or disease trajectory I met with Ishan and her Antonio at bedside. They've been 25 years. Met on [employer] online 25 years ago. He went onto a chat group, made a lot of jokes and Ishan private messaged him. It's been love ever since. Ishan moved out here to [place] to be with Antonio from [place]. They have 2boys together (Estiven 23 in [employer] - Broker In Charge; and Richard 19 studying at [employer] in politics economics). They are so proud of them. Their joys include their boys and their home and dog Xeda (Great [place]to). Their strengths are family and sara (self described recovering catholics :)) they are spiritual. Per Ishan, prior to this she had a fall that broke her left femoral neck. She got it fixed, went home and then the next day or so Antonio said she looked ashen and had an oximeter that showed a HR of 190 and a o2 sat of 76%. It's been 3 weeks since then and she's been in the hospital with significant deconditioning, and stress cardiomyopathy. Life prior to this was good. ADLs were completely independent. Emotionally, Ishan has dealt with depression however she feels motivated at this time. Antonio relays to me there is the fire in her eyes to do what's needed. I shared my understanding that nutrition/dysphagia/rehab are the big topic issues. We're trying to see if dobhoff can be removed or if a PEG is needed. In this, Ishan and Antonio are willing to do what is needed. They are communicating with their sons and are all supportive of each other. Information preferences: All available information, including time-based prognosis Ishan and antonio feel well heard and have gotten clear information/communication from the medicalteams. Prognostic information given: Function-based prognosis this is as strong as you will feel I shared that Ishan has a journey to recovery still. 3 weeks in bed amounts to months of rehab totry to get back to her prior strength. Again, she is ready and willing to do what is needed. Goals: Fears and worries: Other (describe in free text box) No major worries at this time. Just really figuring out this eating and drinking and nutrition aspect. Strengths: Family Sara or spirituality As above. [place] family. 2 sons Richard and Estiven. Self describe recovering Catholics with a smile. Will engage Marketing Automation Analyst for prayers of healing and support alongside Healing arts. Critical abilities: Cognitive ability (eg, meaningfully interact with loved ones - describe necessary abilities below) Physical ability (eg, toileting/bathing self-describe necessary abilities below) Trade-offs: At present, given the severity of illnesses and prior joys and quality of life, Ishan is willing to endure what it takes to see what is possible to get back home. Time in the hospital, rehab and even consideration of a PEG. Family/Agent/Surrogate awareness: DPOA/Surrogate present for discussion Recommendations made: # Press forward # Ishan is ready too # Well supported by loving family # Full Code is aligned with goals # PEG if needed # Rehab rojelio # Healing arts engaged # Marketing Automation Analyst referral made # Pet Therapy if they are around # Depression seems controlled and managed per psychiatry # Please reach out if any concerns or worries come up! No advance directives on file; but no red flags at this point warranting rapid completion of such. * Consult Note - Aicha Mckeon MD - 09/02/2022 3:48 PM EDT Psychiatric Inpatient Consultation Follow Up Note Time of Consultation: 8:30 AM Reason for consultation: Concern for hypoactive delirium versus depression Information Sources: Patient. Family. Relationship to patient: . Electronic Medical Record. Chief Complaint (in patient's own words): Im OK Interim History: Per nursing staff no acute overnight events. Patient denies any current SI or HI. She denies a history of seizure or eating disorder. She is OK with starting the Wellbutrin today. She had not yet received her first dose when psychiatry assessed her this morning, thus unsure about side effects. Independent Collateral: N/A, reported that he was always available for collateral Review of Systems: Psychiatric: See above Physical Exam: Last value Range last 24 hrs Temperature Temp: 36.5 ??C (97.7 ??F) Temp: [36.5 ??C (97.7 ??F)-36.7 ??C (98.1 ??F)] Heart Rate Heart Rate: 82 Heart Rate: [73-87] Blood Pressure BP: 116/69 BP: (93-126)/(49-71) Respiratory Rate Resp: 14 Resp: [14-16] SpO2 SpO2: 97 % SpO2: [94 %-97 %] Mental Status Examination: Musculoskeletal System: ??? Muscle Strength/Tone (note atrophy, abnormal movements): No abnormal movements seen ??? Gait and Station: Not formally tested Psychiatric: ?? Appearance: age appropriate Behavior: cooperative with the interview and calm ?? Speech: soft and slowed. ?? Language: fluent in amharic and without paraphasic errors ?? Mood: I am doing OK Affect: flat ?? Thought Process: linear and logical ?? Associations: intact ?? Thought Content: no homicidal ideation no suicidal ideation Perception: not observed responding to internal stimuli ?? Orientation: grossly intact by interview ?? Attention/Concentration: Able to focus on conversation Cognition: grossly intact by interview ?? Memory: recent and remote memory grossly intact ?? Fund of Knowledge: appropriate for age and level of functioning ?? Insight: fair ?? Judgment: fair Assessment: 62F with bipolar disorder on seroquel and depakote (was previously on olanzapine but stopped in context of increased Parkinsonian sx), recent hip fracture s/p sx with related complications, admitted for stress cardiomyopathy to cardiology, then transferred to medicine for management of other/ongoing issues (sepsis, weakness, unable to eat on her own). ?? As of 09/02, we continue to be concerned for a depressive episode. Patient is agreeable to start Wellbutrin. Denies history of seizure or eating disorder. Denies any acute SI or HI. Diagnoses (chronic, acute, include progression/severity): Depression in the context of a bipolar diagnosis Plan/Recommendations: - Please switch the Wellbutrin to just once daily dosing to avoid difficulty with sleep or over-activating her Patient on IEA Status? IEA: NO, patient is not on IEA and does not have any psychiatric contraindication to discharge at the time of this assessment. Recommendations were communicated to primary felt hat steamer. Aicha Mckeon MD 09/02/2022 Coding Determination 1. Problems/Diagnosis (check one): High Minimal refers to a single minor problem. Example: Poor sleep due to noise in the hospital room. Low refers to two minor problems, or one stable/uncomplicated illness. Examples: Major depression in remission; adjustment disorder with depressed mood. Moderate refers to one illness with new onset, progression, exacerbation, complication, or side effects; or two stable problems. Examples: Recurrent major depression with exacerbation or progression or side effects of treatment; stable schizophrenia and alcohol use disorder; acute alcohol withdrawal; anorexia with systemic symptoms such as bradycardia. High refers to one chronic problem with severe progression, exacerbation, or side effects; or one problem with threat to life or bodily function. Examples: any psychiatric illness with suicidal or homicidal ideation or thoughts of self- harm; delirium; any eating disorder with severe medical consequences; major depression with significant functional decline; any severe side effects of psychiatric interventions (NMS, hyponatremia, lithium toxicity syndrome, etc); any psychiatric illness meeting the severe specifier. 2. Data Review/Analysis (check one): Moderate Low refers to (1) review of notes and test results or (2) assessment from a collateral source. Moderate requires one of the following: ??? All three of the following: review of notes, review of test results, assessment from a collateral source. ??? Discussion of test interpretation or management with an external physician/provider (primary team included). High requires both of the following (same options from Moderate above): ??? All three of the following: review of notes, review of test results, assessment from a collateral source. ??? Discussion of test interpretation or management with an external physician/provider (primary team included). 3. Patient Risk (check one): High Minimal refers to minimal risk from additional testing/treatment. Example: Bereavement. No medications recommended. Low refers to low risk from additional testing/treatment. Example: only interventions are minimallyinvasive or otherwise low risk (serum labs, melatonin, continuing an SSRI). Moderate refers to moderate risk from additional testing/treatment. Examples: starting prescriptionmedication with only moderate risk. Moderate also includes diagnosis or treatment significantly limited by social determinants of health such as food/housing insecurity, transportation issues, financial limitations, etc. High refers to high risk from additional testing/treatment. Examples: therapies requiring monitoring of serum level (lithium, valproate), medications with specific identified risks (QTc-prolonging medications in certain patients, SSRIs in patients with risk of bleeding). Discussions of higher levels of psychiatric intervention/care (1:1 sitter, voluntary psychiatric hospitalization, IEA, ECT). Patients who may require medical interventions against their wishes when they lack capacity to refuse those interventions; patients who lack capacity to choose to leave the hospital AMA. Discussion of high risk interventions that may be necessary to ensure safety (parenteral medications for managementof agitation; restraints; security presence). Risk of acute withdrawal. Complexity of MDM Determination: Choose the appropriate level in the first 3 columns based upon what you indicated above. Then 2 outof 3 elements must be met to qualify for the highest appropriate level of complexity. Problems/Diagnosis Data Review/Analysis Patient Risk Complexity of Medical Decision-Making CPT CODE [] Minimal/Low [] Low [] Minimal/Low [] Low 72948 [] Moderate [x] Moderate [] Moderate [] Moderate 76375 [x] High [] High [x] High [x] High 04806 Final Coding Determination: High Associated attestation - Keenan Rey MD - 09/18/2022 1:05 PM EDT Psychiatry Attending Note I discussed this patient's situation with the resident but did not see the patient. I contributed to the formulation and treatment planning as documented in the resident's note. Keenan Rey MD Psychiatry Consultation Pager: [phone] * Consult Note - Dipak Chiang RN - 09/01/2022 4:02 PM EDT Images from the original note were not included. Certified Wound Care Nurse Note Situation: Asked to see Ishan Irving by ERI Zhang for Incontinence. Rash and skin breakdown in perineal area. Please advise. Background: eD-H notes reviewed for history, admitting diagnosis and active problem list. Patient seen in C453,RN present for positioning and care. Introduced self; explained reason for visit/consultation. Patient agreed to assessment and care. Wound Assessment and Care Provided: Patient turned onto her right side for assessment; incontinent of stool and urine on chux with external catheter in place. Incontinence care provided by RN. Patient with scattered erythematous satellite lesions on perinuem, buttocks and posterior proximal thighs.Per RN Nystatin cream is being applied twice daily. Dajuan Score: 14 Last Pressure Ulcer Prevention assessment: Shift Pressure Injury Prevention Occiput: No Injury Thoracic Spine: No Injury Sacral: Redness, Blanchable Ischial - left: No Injury Ischial - right: No Injury Heel - left: No Injury Heel - right: No Injury Elbow - left: No Injury Elbow - right: No Injury Device Sites: O2 sat monitor, ECG Leads, IV sites Other Sites: ID band Nutritional Status Wt Readings from Last 1 Encounters: 09/01/22 68.1 kg (150 lb 3.2 oz) Body mass index is 29.33 kg/m??. Labs Lab Results Component Value Date ALBUMIN 2.5 (L) 08/20/2022 ALBUMIN 2.4 (L) 08/15/2022 ALBUMIN 2.4 (L) 08/15/2022 HA1C 6.2 (H) 08/15/2022 HA1C 10.6 (H) 12/13/2014 WBC 5.5 09/01/2022 WBC 6.7 08/31/2022 WBC 7.0 08/30/2022 HGB 8.7 (L) 09/01/2022 HGB 8.7 (L) 08/31/2022 HGB 8.4 (L) 08/30/2022 HCT 28.5 (L) 09/01/2022 HCT 29.2 (L) 08/31/2022 HCT 27.8 (L) 08/30/2022 Nutritional Intake Nutrition Diet/Nutrition Received: ice chips, sips of water, tube feeding Intake (%): 0% Current bed: [facility] Assessment:Patient appears with fungal rash at perineal area; 2% Miconazole Remedy will act as a barrier to incontinence as well as provide antifungal component. Wound Care Recommendations: Perineal, gluteal region: 2% Miconazole Remedy Phytoplex Ointment BID for 2 weeks per MAR Do not apply mepilex dressing over area of ointment application, as it will trap unwanted moisture and increase skin breakdown. Refer to adult/pediatric pressure ulcer prevention job aid in the clinical policy library highlighting the following points: Mepilex Border Sacrum dressing to sacrum-Assess beneath the dressing daily and reapply, sealing edges with skin prep. Change every 3 days and PRN: 1. Cleanse skin with dermal wound cleanser. 2. Apply Mepilex Border Sacrum dressing making sure to apply directly against the skin. 3. Seal edges with skin prep. If the Mepilex Border Sacrum needs to be changed more than once a day due to soiling then discontinue and use shield barrier wipes and apply zinc barrier cream to denuded skin Mobility: Turn and reposition every 2 hours and document in ED-H. Place a pillow above and below sacral area to off load pressure to the sacrum Offload pressure from heels by placing pillows lengthwise beneath legs while in bed. Offload pressure from heels by adjusting length of foot of bed. Activity: Implement reminder system for repositioning every two hours while in bed Limit time OOB to the chair to 2 hour intervals. (Including placing bed in chair position, or having HOB higher than 30 degrees) Use a [employer] chair cushion beneath patient at all times while in the chair. Reinforce teaching to shift weight every 15 minutes while in the chair. This can be done by shifting weight side to side to off load pressure to ischial tuberosities. Place a pillow at the lumbar spine to off load pressure to the sacral spine. Friction and Shear: Reposition avoiding shear forces, utilizing maxislide, trendelenberg and max inflate (boost) feature on beds to assist with repositioning. Position hips at triangle icon on bed. Use skin prep on heels and elbows bid. Keep HOB less than or equal to 30 degrees. Use Nourishing Skin Cream after baths for extra dry skin Follow hospital standard for pressure injury prevention and skin care. Refer to adult/pediatric pressure injury prevention job aid in the clinical policy library. Wound Care will follow in two weeks Discussed plan with: /SCOTTY/PA: Robert RN: Vicente Please contact Dipak Chiang RN on secure chat, pager [phone] or the wound care team at [phone] or pager [phone] with skin and wound care concerns or questions. * Consult Note - Keenan Rey MD - 09/01/2022 3:45 PM EDT Psychiatric Initial Inpatient Consultation Note Time of Consultation: 2:45 Information Sources: Patient. Other: primary team, primary RN. Electronic Medical Record. Reason for consultation: I have been asked by attending physician Du to see Ishan Irving for recommendations regarding the management of decreased interaction, poor engagement, fatigue, and I have outlined my findings and recommendations in this report. Chief Complaint (in patient's own words): I want to go home; I wish I could walk History of Present Illness: 62-year-old woman with history of bipolar disorder previously on olanzapine, quetiapine, Depakote, admitted for stress cardiomyopathy in context of recent hip fracture, surgery, and complications related to this. During her stay, pt has made progress especially from cardiac perspective, and sepsis which has been treated, but there is ongoing concern for reduced interactions possibly due to hypoactive delirium. Pt has also had limited mobility (2-assist currently) andis not yet cleared by GAS STATION SUPERVISOR for diet. Of note, neurology was involved due to concern for Parkinsonian symptoms which improved after they stopped olanzapine. Per my evaluation, pt denies subjective confusion. She reports feeling depressed, wanting to go home, I wish I could walk. She feels guilty about being in the hospital, because her is having to take care of everything at home (though intellectually, she understands that none of this is her fault). Similarly, she feels guilty about her daughter's from cancer a few years ago (thoughroxana also understands that she did nothing wrong there either). She agrees with the team's concerns about her limited interaction. She feels tired/fatigued, thoughroxana denies daytime sedation. She feels hungry sometimes, and would be willing to eat when clearedto do so. Despite fatigue, she feels working with PT is going okay and she reports that she feelsmotivated to keep working with them. She sleeps okay, because of her meds, and does not want to stop/reduce any of her meds for bipolar disorder. She denies any auditory or visual hallucinations. Denies any suicidal or homicidal ideation. No paranoia. Psychiatric Review of Systems: Sustained Depressed Mood: yes Sustained Elevated Mood: no Sustained Irritable Mood: no Flashbacks: no Nightmares: no Panic Attacks: no Chronic Worry: no Psychotic Symptoms: no Obsessions/compulsions: no Violence: no Self Harm: no Past Psychiatric History: Diagnoses: bipolar disorder Current treatment: Depakote, seroquel as per PCP. Was on olanzapine but this was stopped (see above). Past hospitalizations: denies Suicide attempts: denies Past psychiatric medications (include dose, length of use, response, reason for stopping): pt has difficulty recalling this, but did recall being on Prozac and on Wellbutrin in the past, and they were okay Substance Use History/Treatment: denies Saw a therapist about 20 years ago when she lived in [place]. Problem List: Patient Active Problem List Diagnosis Code ??? GERD (gastroesophageal reflux disease) K21.9 ??? Farrell's esophagus K22.70 ??? T2DM (type 2 diabetes mellitus) E11.9 ??? BMI 37.0-37.9, adult Z68.37 ??? Bipolar disorder F31.9 ??? Neuroleptic-induced parkinsonism G21.11 Past Medical/Surgical History: Past Medical History: Diagnosis Date ??? Bipolar disorder 02/12/2022 Past Surgical History: Procedure Laterality Date ??? PRO COLONOSCOPY, BIOPSY N/A 03/20/2016 COLONOSCOPY FLEXIBLE, WITH BX performed by David Dejesus MD at [facility] ??? PRO COLONOSCOPY, DIAGNOSTIC N/A 03/01/2020 COLONOSCOPY, DIAGNOSTIC performed by David Dejesus MD at [facility] ??? PRO ENDOSCOPIC US EXAM, ESOPH N/A 03/31/2022 UPPER EUS- ENDOSCOPIC ULTRASOUND performed by David Dejesus MD at [facility] ??? PRO UPPER GI ENDOSCOPY, BIOPSY N/A 04/03/2014 UPPER GASTROINTESTINAL ENDOSCOPY,WITH BIOPSY SINGLE OR MULTIPLE performed by David [facility]jesus MDat [facility] ??? PRO UPPER GI ENDOSCOPY, BIOPSY N/A 03/20/2016 EGD WITH BIOPSY performed by David Dejesus MD at [facility] ??? PRO UPPER GI ENDOSCOPY, BIOPSY N/A 11/22/2018 EGD WITH BIOPSY (WRVU 2.49) performed by David Dejesus MD at [facility] ??? PRO UPPER GI ENDOSCOPY, BIOPSY N/A 03/01/2020 UPPER GASTROINTESTINAL ENDOSCOPY,WITH BIOPSY SINGLE OR MULTIPLE (WRVU 2.49) performed by David Dejesus MD at [facility] ??? PRO UPPER GI ENDOSCOPY, BIOPSY N/A 09/23/2021 EGD WITH BIOPSY (WRVU 2.49) performed by David Dejesus MD at [facility] ??? PRO UPPER GI ENDOSCOPY, BIOPSY N/A 03/31/2022 EGD WITH BIOPSY (WRVU 2.49) performed by David Dejesus MD at [facility] ??? PRO UPPER GI ENDOSCOPY, BIOPSY N/A 07/03/2022 EGD WITH BIOPSY (WRVU 2.49) performed by David Dejesus MD at [facility] ??? PRO UPPER GI ENDOSCOPY, DIAGNOSTIC N/A 04/03/2014 EGD, UPPER GI ENDOSCOPY performed by David Dejesus MD at [facility] ??? PRO UPPER GI ENDOSCOPY, DIAGNOSTIC N/A 03/01/2020 EGD, UPPER GI ENDOSCOPY performed by David Dejesus MD at [facility] Inpatient Medications: Current Facility-Administered Medications Medication Dose Route Frequency Provider Last Rate Last Admin ??? insulin glargine-ygfn (Semglee) (100 unit/mL) subcutaneous injection vial 16 Units 16 Units Subcutaneous Daily Elsie Erickson CELL OPERATION SUPERVISOR 16 Units at 09/01/22 0841 ??? [START ON 09/02/2022] insulin lispro protamine-insulin lispro (HumaLOG MIX 75/25) (100 units/mL)subcutaneous injection vial 33 Units 33 Units Subcutaneous Daily Elsie Erickson, CELL OPERATION SUPERVISOR ??? tube feeding diet 1,320 mL Per NG tube Cyclic Irwin Jones MD 110 mL/hr at 09/01/22 0600 Rate Verify at 09/01/22 0600 ??? nystatin (Mycostatin) cream Topical (Top) BID Irwin Jones MD Given at 09/01/22 0851 ??? metoprolol tartrate (Lopressor) tablet 12.5 mg 12.5 mg Oral 2 times per day Irwin Jones MD 12.5 mg at 09/01/22 0839 ??? sacubitriL-valsartan (Entresto) 24-26 mg per tablet 1 tablet 1 tablet Oral BID Azucena Avila MD 1 tablet at 09/01/22 0853 ??? empagliflozin (Jardiance) tablet 10 mg 10 mg Oral Daily Reynaldo Avila MD 10 mg at 09/01/22 0839 ??? ondansetron (pf) (Zofran) (2 mg/mL) injection 4 mg 4 mg Intravenous Q8H PRN Reynaldo Avila MD 4 mg at 09/01/22 1444 ??? iohexoL (Omnipaque) (350 mg/mL) solution 0-200 mL 0-200 mL Intravenous Once PRN Sonny Pearson, ??? Valproate (Depakene) (50 mg/mL) oral liquid 300 mg 300 mg Per NG tube Q6H Yoselin Avalos MD 300 mg at 09/01/22 1131 ??? QUEtiapine (SEROquel) tablet 100 mg 100 mg Oral Nightly Yoselin Avalos MD 100 mg at 08/31/222053 ??? melatonin tablet 6 mg 6 mg Oral Nightly PRN Yoselin Avalos MD 6 mg at 08/31/222053 ??? lidocaine (Lidoderm) 5% patch 3 patch 3 patch Transdermal Q24H Neva Tomlin MD 3 patch at 08/29/22 1102 ??? insulin lispro (HumaLOG;Admelog) (100 unit/mL) subcutaneous injection vial 1-5 Units 1-5 Units Subcutaneous Q4H lEsie Dang G, CELL OPERATION SUPERVISOR 1 Units at 09/01/22 1134 ??? polyethylene glycoL (Miralax) packet 17 g 17 g Per NG tube Daily PRN Moustapha Gallegos MD 17 g at 08/30/22 1116 ??? senna (Senokot) tablet 8.6 mg 8.6 mg Oral BID PRN Moustapha Gallegos MD ??? bisacodyL (Dulcolax) suppository 10 mg 10 mg Rectal Daily PRN Moustapha Gallegos MD ??? ergocalciferoL (vitamin D2) (8,000 units/mL) oral liquid 50,000 Units 50,000 Units Per NG tube Weekly Neva Tomlin MD 50,000 Units at 09/01/22 0850 ??? enoxaparin (Lovenox) (40 mg/0.4 mL) subcutaneous injection 40 mg 40 mg Subcutaneous Daily Neva Tomlin MD 40 mg at 09/01/22 0851 ??? atorvastatin (Lipitor) tablet 80 mg 80 mg Per NG tube QPM Reynaldo Avila MD 80 mg at 08/31/22 1702 ??? folic acid (Vitamin B9) tablet 1,000 mcg 1,000 mcg Per NG tube Daily Reynaldo Avila MD 1,000 mcg at 09/01/22 0839 ??? ferrous sulfate (60 mg/mL) oral liquid 300 mg 300 mg Per NG tube Every Other Day Reynaldo Avila MD 300 mg at 08/31/22 0836 ??? potassium chloride 20 mEq in sterile water 100 mL infusion 20 mEq Intravenous Q1H PRTyler Reyez MD Stopped at 08/21/22 1808 Or ??? potassium chloride 20 mEq in sterile water 100 mL infusion 20 mEq Intravenous Q1H Tyler Barajas MD Stopped at 08/21/22 0552 Or ??? potassium chloride 20 mEq in sterile water 100 mL infusion 20 mEq Intravenous Q1H Tyler Barajas MD Stopped at 08/24/22 0531 ??? chlorhexidine (Peridex) 0.12 % oral solution 15 mL 15 mL Oral BID Jigar Streeter MD 15 mL at09/01/22 0850 ??? pantoprazole (Protonix) injection 40 mg 40 mg Intravenous BID Jigar Streeter MD 40 mg at 09/01/22 0850 ??? sodium chloride 0.9 % (flush) (BD PosiFlush Normal Saline 0.9) flush 5 mL 5 mL Intravenous BID Tyler Cobb MD 5 mL at 09/01/22 0852 ??? sodium chloride 0.9 % (flush) (BD PosiFlush Normal Saline 0.9) flush 5-20 mL 5-20 mL Intravenous Q1 Min PRTyler Reyez MD ??? lidocaine (Xylocaine) 1% (10 mg/mL) injection 3 mg 0.3 mL Subcutaneous Once PRN Tyler Cobb MD ??? nitroGLYcerin (Nitrostat) disintegrating tablet 0.4 mg 0.4 mg Sublingual Q5 Min PRTyler Reyez MD ??? acetaminophen (Tylenol) tablet 1,000 mg 1,000 mg Oral Q8H LAZARUS Tyler Cobb MD 1,000 mg at 09/01/22 1344 ??? glucose (Glutose) 40% oral geL 15-30 g of glucose Buccal Q30 Min PRN Tyler Cobb MD Or ??? dextrose 10% infusion 250 mL Intravenous Q30 Min PRN Tyler Cobb MD Or ??? glucagon (Glucagen) (1 mg/mL) injection solution 1 mg 1 mg Intramuscular Q30 Min PRN Tyler Cobb MD ??? thiamine (Vitamin B-1) (100 mg/mL) injection 100 mg 100 mg Intravenous Daily Tyler Cobb MD100 mg at 09/01/22 0850 Pertinent Medical Review of Systems: Social History: lives with her ; has two adult sons (one at [facility], one lives with friends somewhere relatively locally); daughter from cancer a few years ago Family Medical/Psychiatric History: daughter had bipolar d/o Physical Exam: Last value Range last 24 hrs Temperature Temp: 36.4 ??C (97.5 ??F) Temp: [36.4 ??C (97.5 ??F)-36.8 ??C (98.2 ??F)] Heart Rate Heart Rate: 94 Heart Rate: [73-97] Blood Pressure BP: 126/58 BP: (100-135)/(52-69) Respiratory Rate Resp: 14 Resp: [14-20] SpO2 SpO2: 96 % SpO2: [94 %-97 %] Mental Status Examination: Musculoskeletal System: ??? Muscle Strength/Tone (note atrophy, abnormal movements): No tremor or other abnl movements. Psychiatric: ?? Appearance: age appropriate and in hospital clothing; had NG tube running tube feeds Behavior: cooperative with the interview, calm, psychomotor retardation and good eye contact ?? Speech: normal pitch, normal rate, normal rhythm and soft ?? Language: fluent in amharic ?? Mood: depressed Affect: constricted and mood-congruent ?? Thought Process: linear and logical ?? Associations: intact ?? Thought Content: no homicidal ideation no suicidal ideation ; no PI/delusions Perception: denied auditory hallucinations denied visual hallucinations not observed responding to internal stimuli ?? Orientation: oriented to self; oriented to month/day/year; oriented to [facility] and being in ahospital but could not name DH ?? Attention/Concentration: intact to interview and could give DOTW backwards Cognition: grossly intact by interview ?? Memory: memory for remote history mostly intact except some difficulty with remote details (suchas past med trials from many years ago); more significant impairment grossly observed with recent events, but this is mild ?? Fund of Knowledge: appropriate for age and level of functioning ?? Insight: fair ?? Judgment: fair Pertinent Diagnostic Testing (include your own review/interpretation of results): Last wbc, hgb, hct plt Recent Labs 09/01/22 0210 WBC 5.5 HGB 8.7* HCT 28.5* Last 3 Lytes Recent Labs 09/01/22 0210 08/30/22 0405 08/29/22 0930 NA 140 140 137 K 4.6 4.1 4.4 CL 104 104 103 CO2 29 28 25 BUN 29* 19* 19* CREATININE 0.51* 0.50* 0.47* Last Ca, Mg, Phos Recent Labs 09/01/22 0210 CALCIUM 9.4 PHOS 4.3 MAGNESIUM 0.94 VPA level on 08/29: 29 at 04:48, 25 at 11:35 External Record Review (include your own review of external notes from any unique sources): n/a Assessment: 62F with bipolar disorder on seroquel and depakote (was previously on olanzapine but stopped in context of increased Parkinsonian sx), recent hip fracture s/p sx with related complications, admitted for stress cardiomyopathy to cardiology, then transferred to medicine for management of other/ongoing issues (sepsis, weakness, unable to eat on her own). Diagnoses (chronic, acute, include progression/severity): mild hypoactive delirium (appears to be resolving); bipolar I disorder, currently depressed, with depression/fatigue/amotivation affecting ability to engage fully in care Plan/Recommendations: -Continue valproate 300 mg q6h per NGT. Could switch to oral when pt can take PO. Given depakote level in 20s, she is not toxic. Would not increase dose at this time due to concern for sedation/fatigue, but also would not taper/stop as pt has been stable on this medication for years. -Continue seroquel 100 mg qhs, but if concern for daytime sedation, could temporarily decrease thisto 50 mg qhs. Pt is reluctant to do this, but further discussion may be warranted as benefits may outweight risks. -Overall, per my evaluation at this point in time, hypoactive delirium seems very mild / resolving,and pt's presentation more consistent with depression. Suggest starting Wellbutrin XL 150 mg daily.Would monitor for any psychosis/delirium as this is a theoretical risk, but advantages of Wellbutrin are: less likely to induce deanna in a pt with known bipolar d/o (compared to medications that are more serotonergic) and pt reported a history of tolerating Wellbutrin. Patient on IEA Status? IEA: NO, patient is not on IEA and does not have any psychiatric contraindication to discharge at the time of this assessment. Recommendations were communicated to primary felt hat steamer Irwin Jones. KEENAN REY MD 09/01/2022 Coding Determination 1. Problems/Diagnosis (check one): High Minimal refers to a single minor problem. Example: Poor sleep due to noise in the hospital room. Low refers to two minor problems, or one stable/uncomplicated illness. Examples: Major depression in remission; adjustment disorder with depressed mood. Moderate refers to one illness with new onset, progression, exacerbation, complication, or side effects; or two stable problems. Examples: Recurrent major depression with exacerbation or progression or side effects of treatment; stable schizophrenia and alcohol use disorder; acute alcohol withdrawal; anorexia with systemic symptoms such as bradycardia. High refers to one chronic problem with severe progression, exacerbation, or side effects; or one problem with threat to life or bodily function. Examples: any psychiatric illness with suicidal or homicidal ideation or thoughts of self- harm; delirium; any eating disorder with severe medical consequences; major depression with significant functional decline; any severe side effects of psychiatric interventions (NMS, hyponatremia, lithium toxicity syndrome, etc); any psychiatric illness meeting the severe specifier. 2. Data Review/Analysis (check one): Moderate Low refers to (1) review of notes and test results or (2) assessment from a collateral source. Moderate requires one of the following: ??? All three of the following: review of notes, review of test results, assessment from a collateral source. ??? Discussion of test interpretation or management with an external physician/provider (primary team included). High requires both of the following (same options from Moderate above): ??? All three of the following: review of notes, review of test results, assessment from a collateral source. ??? Discussion of test interpretation or management with an external physician/provider (primary team included). 3. Patient Risk (check one): High Minimal refers to minimal risk from additional testing/treatment. Example: Bereavement. No medications recommended. Low refers to low risk from additional testing/treatment. Example: only interventions are minimallyinvasive or otherwise low risk (serum labs, melatonin, continuing an SSRI). Moderate refers to moderate risk from additional testing/treatment. Examples: starting prescriptionmedication with only moderate risk. Moderate also includes diagnosis or treatment significantly limited by social determinants of health such as food/housing insecurity, transportation issues, financial limitations, etc. High refers to high risk from additional testing/treatment. Examples: therapies requiring monitoring of serum level (lithium, valproate), medications with specific identified risks (QTc-prolonging medications in certain patients, SSRIs in patients with risk of bleeding). Discussions of higher levels of psychiatric intervention/care (1:1 sitter, voluntary psychiatric hospitalization, IEA, ECT). Patients who may require medical interventions against their wishes when they lack capacity to refuse those interventions; patients who lack capacity to choose to leave the hospital AMA. Discussion of high risk interventions that may be necessary to ensure safety (parenteral medications for managementof agitation; restraints; security presence). Risk of acute withdrawal. Complexity of MDM Determination: Choose the appropriate level in the first 3 columns based upon what you indicated above. Then 2 outof 3 elements must be met to qualify for the highest appropriate level of complexity. Problems/Diagnosis Data Review/Analysis Patient Risk Complexity of Medical Decision-Making CPT CODE [] Minimal - [] Minimal [] Straightforward 06724 [] Low [] Low [] Low [] Low 70974 [] Moderate [x] Moderate [] Moderate [] Moderate 58061 [x] High [] High [x] High [x] High 12806 Final Coding Determination: High: 28796 * Consult Note - Nery Ott MD - 09/01/2022 11:22 AM EDT Images from the original note were not included. DIVISION OF GASTROENTEROLOGY & HEPATOLOGY INITIAL CONSULT REQUESTING PROVIDER: Tenisha Sandy MD NAME: Ishan Irving : 1960 HPI: Ishan Irving 62 y.o./ w/ PMH of BE with esophageal stricture, bipolar disorder, T2DM, hx alcohol use c/b chronic pancreatitis (now sober), recent admission for femoral neck fracture s/p surgical fixation adm 08/14/2022 11:11 PM after found her down/unresponsive at home. GI is consulted for dysphagia. Per chart review, the patient was hospitalized with femoral neck fracture s/p surgical fixation anddischarged with opiates for pain control. A few days after discharge, she was found unresponsive athome and her called EMS. She was given Narcan with some improvement in mental status. She was noted to be hypoxemic to the 70s, improved to 90s on NRB. She was initially brought to [facility]. There labs showed WBC 15, Hgb 11, PLT 254, normal CMP, negative troponin, normal EKG, respiratory panel negative. CTA chest showed No evidence of pulmonary embolism. Severe bilateral pneumonia. Marked diffuse esophageal wall thickening. Findings could be inflammatory however malignancy not excluded. CT head showed no acute findings. She was treated for PNA with Vanc/Zosyn, steroids, and was on CIWA for potential alcohol withdrawal. Her respiratory status worsened over a few days + she was becomingmore somnolent so she was intubated. TTE at that time showed newly reduced EF to 25%, no WMA and atthis time troponin was 1600 and proBNP >25,000. She was started on hep gtt, loaded with Aspirin,started on BUSHER HELPER, diuresed, and sent to [facility] for Cardiology workup. This was ultimately felt to be [place] cardiomyopathy and she was medically managed. She was transferred to the medical service yesterday for further evaluation as she is having dysphagia and regurgitation. Per report, she has a dobhoff in place. She was seen by GAS STATION SUPERVISOR today who note inconsistent symptoms/signs of aspiration with ice chips and water - they are hopeful her swallowing function will improve with time and therapy. They recc considering long-term means of nutrition/hydration to provide nutrition during rehab course. The notes also mention wanting to obtain barium swallow, though worry about aspiration with contrastat this time. Of note, she had an EGD in June notable for esophageal stricture from 25- 30cm with C8M8 BE and some ulceration. She is maintained on Pantoprazole 40mg BID, Carafate 1g QID. Based on our notes, she has not had this esophageal stricture dilated. Prior EGDs: - 07/03/22: persistent esophageal stricture from 25-30cm with C8M8 BE and some ulceration; pathologyBE negative for dysplasia with villous transformation of the cardia-type mucosa - 03/31/22: long segment BE with associated stricture - 09/23/21: severe esophagitis with BE and distal esophageal ulcer ROS: 10-system ROS negative other than that noted above PAST MEDICAL: Past Medical History: Diagnosis Date ??? Bipolar disorder 02/12/2022 PAST SURGICAL HX: Past Surgical History: Procedure Laterality Date ??? PRO COLONOSCOPY, BIOPSY N/A 03/20/2016 COLONOSCOPY FLEXIBLE, WITH BX performed by David Dejesus MD at [facility] ??? PRO COLONOSCOPY, DIAGNOSTIC N/A 03/01/2020 COLONOSCOPY, DIAGNOSTIC performed by David Dejesus MD at [facility] ??? PRO ENDOSCOPIC US EXAM, ESOPH N/A 03/31/2022 UPPER EUS- ENDOSCOPIC ULTRASOUND performed by David Dejesus MD at [facility] ??? PRO UPPER GI ENDOSCOPY, BIOPSY N/A 04/03/2014 UPPER GASTROINTESTINAL ENDOSCOPY,WITH BIOPSY SINGLE OR MULTIPLE performed by David [facility]us MDat [facility] ??? PRO UPPER GI ENDOSCOPY, BIOPSY N/A 03/20/2016 EGD WITH BIOPSY performed by David Dejesus MD at [facility] ??? PRO UPPER GI ENDOSCOPY, BIOPSY N/A 11/22/2018 EGD WITH BIOPSY (WRVU 2.49) performed by David Dejesus MD at [facility] ??? PRO UPPER GI ENDOSCOPY, BIOPSY N/A 03/01/2020 UPPER GASTROINTESTINAL ENDOSCOPY,WITH BIOPSY SINGLE OR MULTIPLE (WRVU 2.49) performed by David Dejesus MD at [facility] ??? PRO UPPER GI ENDOSCOPY, BIOPSY N/A 09/23/2021 EGD WITH BIOPSY (WRVU 2.49) performed by David Dejesus MD at [facility] ??? PRO UPPER GI ENDOSCOPY, BIOPSY N/A 03/31/2022 EGD WITH BIOPSY (WRVU 2.49) performed by David Dejesus MD at [facility] ??? PRO UPPER GI ENDOSCOPY, BIOPSY N/A 07/03/2022 EGD WITH BIOPSY (WRVU 2.49) performed by David Dejesus MD at [facility] ??? PRO UPPER GI ENDOSCOPY, DIAGNOSTIC N/A 04/03/2014 EGD, UPPER GI ENDOSCOPY performed by David Dejesus MD at [facility] ??? PRO UPPER GI ENDOSCOPY, DIAGNOSTIC N/A 03/01/2020 EGD, UPPER GI ENDOSCOPY performed by David Dejesus MD at [facility] SOCIAL HX: Social History Socioeconomic History ??? Marital status: Spouse name: Not on file ??? Number of children: Not on file ??? Years of education: Not on file ??? Highest education level: Not on file Occupational History ??? Not on file Tobacco Use ??? Smoking status: Former Years: Types: Cigarettes Quit date: 02/26/2021 Years since quittin.5 ??? Smokeless tobacco: Never Substance and Sexual Activity ??? Alcohol use: Not Currently Alcohol/week: 1.0 standard drink Types: 1 Glasses of wine per week ??? Drug use: Never ??? Sexual activity: Yes Partners: Male Other Topics Concern ??? Not on file Social History Narrative ??? Not on file Social Determinants of Health Financial Resource Strain: Not on file Food Insecurity: Not on file Transportation Needs: Not on file Physical Activity: Not on file Housing Stability: Not on file FAMILY HX: No family history on file. MEDICATIONS Medication list personally reviewed Home Meds: Medications Prior to Admission Medication Sig Dispense Refill Last Dose ??? divalproex ER (Depakote ER) 500 mg ER 24 hr tablet Take 1,000 mg by mouth daily. Take two tablets every afternoon ??? divalproex ER (Depakote ER) 250 mg ER 24 hr tablet Take 250 mg by mouth nightly. ??? pantoprazole EC (Protonix) 40 mg Tablet, [...] Take 50 mg by mouth daily. ??? Blood Sugar [...] for dosing. 15 mL 11 ??? Insulin [place], Disposable, (BD INSULIN PEN NEEDLE UF MINI) 31 x 3/16 Needle 1 Device by [facility].(Non-Drug; Combo Route) route 3 times daily as needed. 100 each 11 Current Meds: Scheduled: ??? insulin glargine (Lantus;Semglee) (100 unit/mL) subcutaneous injection 16 Units Subcutaneous Daily ??? [START ON 09/02/2022] insulin lispro protamine-insulin lispro 75/25 33 Units Subcutaneous Daily ??? nystatin Topical (Top) BID ??? metoproloL tartrate 12.5 mg Oral 2 times per day ??? sacubitriL-valsartan 1 tablet Oral BID ??? empagliflozin 10 mg Oral Daily ??? valproic acid 300 mg Per NG tube Q6H ??? QUEtiapine 100 mg Oral Nightly ??? lidocaine 3 patch Transdermal Q24H ??? insulin lispro 1-5 Units Subcutaneous Q4H LAZARUS ??? ergocalciferoL (vitamin D2) 50,000 Units Per NG tube Weekly ??? enoxaparin 40 mg Subcutaneous Daily ??? atorvastatin 80 mg Per NG tube QPM ??? folic acid 1,000 mcg Per NG tube Daily ??? ferrous sulfate 300 mg Per NG tube Every Other Day ??? chlorhexidine 15 mL Oral BID ??? pantoprazole 40 mg Intravenous BID ??? sodium chloride 0.9 % (flush) 5 mL Intravenous BID ??? acetaminophen 1,000 mg Oral Q8H LAZARUS ??? thiamine 100 mg Intravenous Daily Drips: ??? tube feeding diet 110 mL/hr at 09/01/22 0600 PRN: ondansetron, iohexoL, melatonin, polyethylene glycoL, senna, bisacodyL, potassium chloride in waterOR potassium chloride in water OR potassium chloride in water, sodium chloride 0.9 % (flush), lidocaine, nitroGLYcerin, glucose 40% oral geL OR dextrose 10% OR glucagon Allergies: Allergies Allergen Reactions ??? Meperidine Hcl CIS - violently ill ??? Metformin Other (See Comments) Severe diarrhea OBJECTIVE Vitals: T Temp: [36.4 ??C (97.5 ??F)-36.8 ??C (98.2 ??F)] HR Heart Rate: [81-97] BP BP: (101-135)/(56-69) RR Resp: [14-25] SpO2 SpO2: [94 %-97 %] 08/31 0701 - 09/01 0700 In: 190 Out: 600 [Urine:600] Wt Last 68.1 kg (150 lb 3.2 oz) Admit 69 kg Physical Exam: CONST: Awake, alert, no acute distress HEENT: sclerae anicteric, DHT in place RESP: normal RR CARDIAC: RRR GI: abdomen soft, non-tender, non-distended MSK: legs warm SKIN: No jaundice NEURO: Grossly intact PSYCH: Pleasant, appropriate affect Labs: Labs personally reviewed in eDH CBC: Recent Labs 09/01/22 0210 08/31/22 0430 08/30/22 0405 08/29/22 0930 08/28/22 0700 08/27/22 0540 08/26/22 0022 WBC 5.5 6.7 7.0 7.5 9.0 9.5 8.9 HGB 8.7* 8.7* 8.4* 8.7* 8.6* 8.6* 8.3* PLATELET 361* 330 407* 448* 464* 528* 456* MCV 72.2* 73.6* 73.0* 71.1* 70.3* 70.7* 70.0* RDWCV Not Measured Not Measured Not Measured Not Measured Not Measured Not Measured Not Measured COAG: No results for input(s): PTT, INR, PT in the last 168 hours. CHEM: Recent Labs 09/01/22 0210 08/31/22 0430 08/30/22 0405 08/29/22 0930 08/28/22 0700 08/27/22 1800 08/27/22 1355 08/27/22 0950 08/27/22 0540 08/26/22 0022 CREATININE 0.51* -- 0.50* 0.47* 0.46* -- -- -- 0.44* 0.38* BUN 29* -- 19* 19* 15 -- -- -- 15 12 NA 140 -- 140 137 141 -- -- -- 139 137 K 4.6 -- 4.1 4.4 4.2 4.0 4.3 4.4 4.4 4.0 CL 104 -- 104 103 105 -- -- -- 106 105 CO2 29 -- 28 25 27 -- -- -- 27 25 MAGNESIUM 0.94 0.81 0.90 0.81 0.87 -- -- -- 0.85 0.76 CALCIUM 9.4 -- 9.4 9.2 9.4 -- -- -- 9.3 9.0 HEPATIC: No results for input(s): BILITOT, BILIDIR, ALKPHOS, AST, ALT, ALBUMIN, LIPASE in the last 168 hours. Invalid input(s): TPROT INFLAMM: No results for input(s): CRP in the last 168 hours. IMAGING: Reports and images personally reviewed in eD. Images independently interpreted. XR Fluoro Barium Swallow (Modified/Video Swallow Pharynx) Final Result Abnormal modified barium swallow as above. Please see speech pathology report for further discussion. Thank you for letting us participate in the care of this patient. If you are a health care provider and have any questions regarding this report, please contact the number below. For patients who have questions please contact the health acute care physician that requested your imaging first. Electronically signed by: Aron Billings MD, [facility] ([phone]), at 08/31/2022 12:[address] Angiogram Coronary Arteries Final Result Coronary calcium score of 0, consistent with no detectable calcified atherosclerotic plaque burden. No evidence of stenosing soft plaque on the coronary CT arteriogram. CAD RADS 0 Ongoing bilateral pulmonary infectious/inflammatory changes with persistent consolidative opacity especially in the left lower lobe. This could represent a multifocal pneumonia. Recommend follow-up CT in 3 months to assess for resolution. Thank you for letting us participate in the care of this patient. If you are a health care provider and have any questions regarding this report, please contact the number below. For patients who have questions please contact the health acute care physician that requested your imaging first. Electronically signed by: Arlette Mays MD, [facility] ([phone]), at 08/27/2022 11:[address] Chest wo Contrast (Generic) Final Result Stable findings of multifocal pneumonia. No interval abnormality. Thank you for letting us participate in the care of this patient. If you are a health care provider and have any questions regarding this report, please contact the number below. For patients who have questions please contact the health acute care physician that requested your imaging first. Electronically signed by: MINH QUIROGA MD, [facility] ([phone]), at 08/27/2022 10:48 AM XR Hip 2-3 Views Left Final Result No radiographic evidence of infection. Thank you for letting us participate in the care of this patient. If you are a health care provider and have any questions regarding this report, please contact the number below. For patients who have questions please contact the health acute care physician that requested your imaging first. Electronically signed by: Vitkor Cervantes MD, [facility] ([phone]), at 08/22/2022 12:43 PM XR Pelvis (Generic) Final Result No radiographic evidence of infection status post left hip ORIF. Thank you for letting us participate in the care of this patient. If you are a health care provider and have any questions regarding this report, please contact the number below. For patients who have questions please contact the health acute care physician that requested your imaging first. Electronically signed by: Richard Billings MD, [facility] ([phone]), at 08/22/2022 10:[address] Hip w Contrast Left Final Result 1. Uncomplicated left femoral neck ORIF with unchanged postoperative alignment. 2. Moderate skin thickening and subcutaneous stranding about the lateral left hip with lateral left thigh intramuscular edema and fascial thickening. These findings are nonspecific and may be seen in the routine postoperative setting. Underlying soft tissue infection with infectious or inflammatory myositis may also have this appearance. Correlation with physical examination, clinical symptoms, and laboratory findings is recommended. 3. 2.3 x 1.6 x 1.8 cm focus of more coalescent fluid attenuation centered in the subcutaneous fat of the posterolateral thigh roughly at the level of the proximal femoral fixation screw heads. There is no rim-enhancing to suggest a mature, organized abscess at this time. However, this finding could represent phlegmon in appropriate clinical context, or it could represent a postsurgical collection, the contents of which may be sterile or infected. 4. There is a rectal tube in place. However, there remains a large stool ball in the rectum with free fluid versus coalescent edema on both the anterior and posterior margins of the distended rectum. In appropriate clinical context, these findings could represent proctocolitis or stercoral colitis. I have personally reviewed the image(s) and the resident's interpretation and agree with the findings, Aicha Chowdhury MD at 08/21/2022 9:34 AM Thank you for letting us participate in the care of this patient. If you are a health care provider and have any questions regarding this report, please contact the number below. For patients who have questions please contact the health acute care physician that requested your imaging first. Electronically signed by: Aicha Chowdhury MD, [facility] ([phone]), at 08/21/2022 9:[address] Chest w Contrast Final Result 1. Multifocal lower lobe predominant consolidative opacities with additional upper lobe opacities consistent with multifocal pneumonia. Compared to the prior CT of 08/12/2022 the number and size of the opacities has decreased. Recommend follow-up imaging in 3-6 months to document complete resolution. 2. New small, sub-1 cm early cavitation of multiple opacities predominantly within the posterior left upper lobe and left lower lobe. 3. New curvilinear splenic lesions could represent infarct versus late arterial phase splenic arterial opacification. Thank you for letting us participate in the care of this patient. If you are a health care provider and have any questions regarding this report, please contact the number below. For patients who have questions please contact the health acute care physician that requested your imaging first. Brain wo Contrast Final Result No acute infarction, mass or mass effect. Thank you for letting us participate in the care of this patient. If you are a health care provider and have any questions regarding this report, please contact the number below. For patients who have questions please contact the health acute care physician that requested your imaging first. Chest for Verifying Vascular Access PICC Placement At Bedside Final Result PICC tip is in the superior vena cava above the right atrium. Thank you for letting us participate in the care of this patient. If you are a health care provider and have any questions regarding this report, please contact the number below. For patients who have questions please contact the health acute care physician that requested your imaging first. Electronically signed by: Alan De Guzman MD, [facility] ([phone]), at 08/19/2022 4:39 PM XR Chest One View Final Result 1. Increased bibasilar airspace opacities compared to radiograph 08/16/2022, concerning for an infectious/inflammatory process. A component of edema not excluded. 2. Overall decreased pulmonary edema. I have personally reviewed the image(s) and the resident's interpretation and agree with the findings, Alan De Guzman MD at 08/19/2022 3:14 PM Thank you for letting us participate in the care of this patient. If you are a health care provider and have any questions regarding this report, please contact the number below. For patients who have questions please contact the health acute care physician that requested your imaging first. Electronically signed by: Alan De Guzman MD, [facility] ([phone]), at 08/19/2022 3:[address] Head wo Contrast (Generic) Final Result No acute intracranial process. Thank you for letting us participate in the care of this patient. If you are a health care provider and have any questions regarding this report, please contact the number below. For patients who have questions please contact the health acute care physician that requested your imaging first. Electronically signed by: Antonio Jordan MD, [facility] ([phone]), at 08/18/2022 3:18 PM XR Abdomen 1 view (Generic) Final Result Status post Dobbhoff tube placement with catheter tip terminating at the approximate position of greater curvature. I have personally reviewed the image(s) and the resident's interpretation and agree with the findings, Jenn Pina MD at 08/17/2022 2:31 PM Thank you for letting us participate in the care of this patient. If you are a health care provider and have any questions regarding this report, please contact the number below. For patients who have questions please contact the health acute care physician that requested your imaging first. Head wo Contrast (Generic) Final Result No acute intracranial abnormality and no change from prior Thank you for letting us participate in the care of this patient. If you are a health care provider and have any questions regarding this report, please contact the number below. For patients who have questions please contact the health acute care physician that requested your imaging first. Electronically signed by: Moustapha Correa MD, [facility] ([phone]), at 08/16/2022 11:19 PM XR Chest One View Final Result PA catheter has a persistent loop near the tip, similar to the prior comparison study. Improved pulmonary edema. Thank you for letting us participate in the care of this patient. If you are a health care provider and have any questions regarding this report, please contact the number below. For patients who have questions please contact the health acute care physician that requested your imaging first. Electronically signed by: Alfonso Adams MD, [facility] ([phone]), at 08/16/2022 10:56 AM XR Abdomen 1 view (Generic) Final Result The enteric tube sidehole is not definitively subdiaphragmatic. Recommend advancement. Preliminary report signed by: Carlos Wolff at 08/15/2022 9:00 AM I have personally reviewed the image(s) and the resident's interpretation and agree with the findings, Liliane Adams MD at 08/15/2022 9:05 AM Thank you for letting us participate in the care of this patient. If you are a health care provider and have any questions regarding this report, please contact the number below. For patients who have questions please contact the health acute care physician that requested your imaging first. Electronically signed by: Liliane Adams MD, [facility] ([phone]), at 08/15/2022 9:05 AM XR Abdomen 1 view (Generic) Final Result Nonspecific/nondiagnostic appearance of the abdomen, with large stool burden in the RIGHT hemiabdomen and pelvis. Thank you for letting us participate in the care of this patient. If you are a health care provider and have any questions regarding this report, please contact the number below. For patients who have questions please contact the health acute care physician that requested your imaging first. Chest One View Final Result FINDINGS/IMPRESSION: * RIGHT neck central catheter redemonstrated terminating over the region of the pulmonary trunk, now uncoiled distally although the tip is looped. * Moderate pulmonary edema redemonstrated. * ET tube projects similar. Thank you for letting us participate in the care of this patient. If you are a health care provider and have any questions regarding this report, please contact the number below. For patients who have questions please contact the health acute care physician that requested your imaging first. Chest One View Final Result FINDINGS/IMPRESSION: * Moderate pulmonary edema. * No confluent airspace opacity otherwise seen. * Cannot exclude small pleural effusions. * Cardiomediastinal contours appear within normal limits. * Endotracheal tube tip projects 3.8 cm above the consuelo. * RIGHT neck central catheter, distal catheter coiled over the region of the RIGHT ventricle and pulmonary trunk. Thank you for letting us participate in the care of this patient. If you are a health care provider and have any questions regarding this report, please contact the number below. For patients who have questions please contact the health acute care physician that requested your imaging first. Film Library- Storage Only DX Chest Final Result Film Library- Storage Only CT Head Final Result Film Library- Storage Only DX Chest Final Result Film Library- Storage Only CT Chest Final Result Film Library- Storage Only DX Chest Final Result Film Library- Storage Only DX Pelvis Final Result Film Library- Storage Only DX Lower Extremity Final Result XR PICC Placement Over 5 Years with Imaging Guidance (IV Team) (Results Pending) IR Ultrasound in IR (Results Pending) XR Pelvis and Hip 2 Views Left (Results Pending) ENDOSCOPY: Reports and images personally reviewed in eDH OSH RECORDS: Obtained and personally reviewed ASSESSMENT & PLAN: Ishan Irving 62 y.o./ w/ PMH of BE with esophageal stricture, bipolar disorder, T2DM, hx alcohol use c/b chronic pancreatitis (now sober), recent admission for femoral neck fracture s/p surgical fixation adm after found her down/unresponsive at home. Her hospital course has been complicated by acute hypoxic respiratory failure and somnolence requiring intubation. She was also found to have a newly reduced EF that is felt to be Takotsubo cardiomyopathy now on goal-directed medical therapy for heart failure with reduced ejection fraction and now ongoing dysphagia. Per report julius had a Dobbhoff since this admission for nutrition supplementation. She had a modified barium swallow with GAS STATION SUPERVISOR yesterday that showed tamara oropharyngeal aspiration. I suspect this is in the setting of her critical, severe illness and not necessarily a sequelae of her known esophageal disease. She had an upper endoscopy in June of this year that noted a stable esophageal stricture that has never required dilation, so my suspicion that this is suddenly narrowed and causing or exacerbating her new oral pharyngeal dysphagia is very low. In that sense, do not think an EGD for esophageal dysphagia is warranted and we will consider twice daily PPI while inpatient. If she does not have meaningful improvement in swallowing over the coming days to weeks, could consider PEG as an alternate means of nutrition while she continues to rehab outside of the hospital. Recommendations: -Continue working with GAS STATION SUPERVISOR -If no meaningful improvement in oropharyngeal dysphagia can consider endoscopically placed PEG Patient seen with Dr. Cervantes. Thank you for involving us in the care of this patient. Please call/page should any further questions arise. Nery Ott MD PGY-4, Gastroenterology Associated attestation - Cesar Cervantes MD - 09/01/2022 8:47 PM EDT I have seen and evaluated the patient with Dr. Ott. I have reviewed the fellow's history during the encounter and I agree with the details as written above. My physical examination confirms the above findings. The assessment and plan were formulated in discussion with me at the time of the encounter and I agree with them as documented. Cesar Cervantes MD, MS electronic prepress operator Container Crane Operator, Gastroenterology and Hepatology * Plan of Care - Vicente Zarco RN - 08/31/2022 6:10 PM EDT OUTCOME EVALUATION NOTE: OUTCOME SUMMARY: Ishan Irving, A&Ox 4. VSS. Pt went to her barium swallow test. Nausea and vomiting after arriving back to unit. IV zofran given. No reports of CP or SOB. Pt had no c/o pain today. Pt pivoted with PT to the chair and to the stretcher prior to procedure (2A w/ FWW). Incontinent of urine x2 this shift. Call marshall within reach. PLAN MOVING FORWARD: Continue to actively monitor. Discharge planning as appropriate. INDIVIDUALIZED FALL PREVENTION INTERVENTIONS: Patient-specific fall risk factors per assessment: [current deficits]: Unfamiliar environment, wires and equipment, generalized weakness. Assistance [level of assistance required for transfers and ambulation]: 2A Pivot & FWW equipment Supervision [direct monitoring required during toileting and ADLs]: Mini Lopez turns Surveillance [continuous indirect monitoring]: Tele and SpO2. CARE PLAN GOAL OUTCOME EVALUATION: Ongoing. * Care Management - Flavio Urena RN - 08/31/2022 11:36 AM EDT OFFICE OF CARE MANAGEMENT PROGRESS NOTE LOS: Hospital Day 17 days Chart reviewed, care reviewed with primary team and at interdisciplinary rounds. Patient continues to meet inpatient level of care related to: stress cardiomyopathy and dysphagia requiring tube feeds Decision Maker: Self Functional status prior to admission: Independent (was using a walker per spouse for her post hip surgery recovery) Home Environment: Others in the home: spouse, pet(s) (dog). Current Living Arrangements: home/apartment/condo. Accessibility Concerns: one level and BM; 3 steps to enter. Current Functional Ability: Assistive Person and Equipment *2 assist with FWW DME used at home: walker - rolling (for hip recovery) DME Needed at Discharge: No Patient is insured through: Primary Insurance: [place] Payor: [place] / Plan: [place] PRIMARY CARE [place] / Product Type: *No Product type* / Secondary Insurance: N/A Last Physical Therapy Recommendation: swing bed rehabilitation facility with to be determined Last Occupational Therapy Recommendation: [facility] facility, acute rehabilitation facility with to be determined Plan for discharge is: Pending Hospital Course and PT/OT Recommendations Outpatient Agency/Support Group Needs: Other *TBD- Swing vs SNF vs acute rehab Agency Referrals: Pending recommendation from hospital course and PT/OT Transportation: ambulance vs family Barriers to discharge: Discharge planning Supports: Caregiver support Plan going forward: MBS today, continuing tube feeds via Dobhoff. Follow volume status and renal function. Care Management will continue to follow and assist with discharge planning and coordination of care as indicated. Anticipated Date of Discharge: 09/04/2022 Flavio ROLAND sql server consultant- Medicine Office of Care Management Office# [phone] Pager: [phone] * Plan of Care - Vicente Zarco RN - 08/30/2022 6:21 PM EDT OUTCOME EVALUATION NOTE: OUTCOME SUMMARY: Pt had an uneventful day. Pt A&Ox 4. Pt transitioned from cardiology to medicine team. Pt's visited with her in the morning. Absent of CP or SOB, no reported pain. Pt was repositioned every 2 hours with assistance. Meds given through NG tube and feed ran from 0600 until 1800 at 98 ml per hour. Pt awaiting possible swallow study procedure. Continuing to monitor on tele and SpO2. Sating 95-98% O2 on RA, HR in the 70s-80s NSR with flipped T-wave (no change in rhythm). Call marshall within reach. PLAN MOVING FORWARD: Continue to actively monitor. Dysphagia and regurgitation are main barriers to discharge. Dischargeplanning as appropriate. INDIVIDUALIZED FALL PREVENTION INTERVENTIONS: Patient-specific fall risk factors per assessment: [current deficits]: generalized weakness, tube feed diet Assistance [level of assistance required for transfers and ambulation]: 2A Q2h turns Supervision [direct monitoring required during toileting and ADLs]: 1A. HOB >30 degrees during tube feeds Surveillance [continuous indirect monitoring]: tele spO2 CARE PLAN GOAL OUTCOME EVALUATION: Ongoing. * Plan of Care - Jigar Harding RN - 08/29/2022 5:38 PM EDT OUTCOME EVALUATION NOTE: OUTCOME SUMMARY: Pt is alert, but withdrawn. VSS. No reports of CP or SOB. Denies pain. Stand pivotwith 2 assist . NSR with occ PVCs on tele- see scanned docs. Tube feed stopped at 1800, to be restarted at 0600. Callbell within reach. PLAN MOVING FORWARD: Discharge planning as appropriate INDIVIDUALIZED FALL PREVENTION INTERVENTIONS: Patient-specific fall risk factors per assessment: [current deficits]: O2 monitor, tele wires, unfamiliar environment, weakness, tube feed Assistance [level of assistance required for transfers and ambulation]: 2 assist, stand pivot Supervision [direct monitoring required during toileting and ADLs]: 2 assist, stand pivot Surveillance [continuous indirect monitoring]: O2 monitor, purposeful rounding, telemetry Patient-specific fall prevention interventions for sensory deficits provided, if applicable: lighting adjusted for specific tasks/activities, nonskid socks/shoes on, bed in lowest/locked position CARE PLAN GOAL OUTCOME EVALUATION: Ongoing. * Consult Note - Dixie Tadeo MD - 08/28/2022 8:54 PM EDT Images from the original note were not included. Division of Endocrinology We are asked to consult on Mrs Ishan Irving 62yo women who was found down and with L femoral neck fracture/severe osteoporosis. This is her 1st minimal trauma fracture. Has not had BMD done by DXA. Other risk factors for fracture/osteoporosis are: [x] Yes [] No Smoking, if yes, how long stopped 2020 [x] Yes [] No Drinking alcohol. If yes, how much, not in last year Daily calcium intake: [] 0-100 mg [] 101-200 mg [] 201-300 mg [] 301-400 mg [x] 401-500 mg was taking at home from diet [] 501-600 mg [] 601-700 mg [] 701-900 mg [] 901-1100 mg [] 8058-2151 mg [] 5469-7192 mg [] Above 1500 mg Medications: No current facility-administered medications on file prior to encounter. Current Outpatient Medications on File Prior to Encounter Medication Sig Dispense Refill ??? divalproex ER (Depakote ER) 500 mg ER 24 hr tablet Take 1,000 mg by mouth daily. Take two tablets every afternoon ??? divalproex ER (Depakote ER) 250 mg ER 24 hr tablet Take 250 mg by mouth nightly. ??? pantoprazole EC (Protonix) 40 mg Tablet, [...] Take 50 mg by mouth daily. ??? Blood Sugar [...] for dosing. 15 mL 11 ??? Insulin Sidney, Disposable, (BD INSULIN PEN NEEDLE UF MINI) 31 x 3/16 Needle 1 Device by [facility]Non-Drug; Combo Route) route 3 times daily as needed. 100 each 11 [] Yes [] No Glucocorticoid dose. When first prescribed? [] Yes [] No Cyclosporine dose. When first prescribed? [] Yes [] No Phenobarbital and phenytoin. When first prescribed? [] Yes [] No Rosiglitazone, pioglitazone. When first prescribed? [] Yes [x] No PPI. When first prescribed? [] Yes [x] No SSRI. When first prescribed? [] Yes [] No Thiaizdes, loop diuretics. When first prescribed? [] Yes [] No Estrogens, testosterone. When first prescribed? [] Yes [] No Calcitonin. When first prescribed? [] Yes [] No Aromatase inhibitors (breast CA). When first prescribed? [] Yes [] No Androgen deprivation therapy (prostate CA). When first prescribed? [] Yes [] No Alendronate, risedronate, ibandronate. When first prescribed? PMH: Patient Active Problem List Diagnosis Code ??? GERD (gastroesophageal reflux disease) K21.9 ??? Farrell's esophagus K22.70 ??? T2DM (type 2 diabetes mellitus) E11.9 ??? BMI 37.0-37.9, adult Z68.37 ??? Bipolar disorder F31.9 ??? Neuroleptic-induced parkinsonism G21.11 Allergies Allergen Reactions ??? Meperidine Hcl CIS - violently ill ??? Metformin Other (See Comments) Severe diarrhea Social History Socioeconomic History ??? Marital status: Spouse name: Not on file ??? Number of children: Not on file ??? Years of education: Not on file ??? Highest education level: Not on file Occupational History ??? Not on file Tobacco Use ??? Smoking status: Former Years: 11.00 Types: Cigarettes Quit date: 02/26/2021 Years since quittin.5 ??? Smokeless tobacco: Never Substance and Sexual Activity ??? Alcohol use: Not Currently Alcohol/week: 1.0 standard drink Types: 1 Glasses of wine per week ??? Drug use: Never ??? Sexual activity: Yes Partners: Male Other Topics Concern ??? Not on file Social History Narrative ??? Not on file Social Determinants of Health Financial Resource Strain: Not on file Food Insecurity: Not on file Transportation Needs: Not on file Physical Activity: Not on file Housing Stability: Not on file Physical Examination: Spine: without kyphosis, without pain on palpation. Skin: tamayo face, acne, Appearance: has dopoff tube in nose, oriented x 3, in nad. Labs 08/28 HCT 27.4, Ca 9.4, Ph 4.6 08/24 PTH 60, 25-D 12 08/2012 TSH 1.9 Assessment and Plan 1. S/p hip fracture/severe osteoporosis/severe vitamin D def: Her risk of future fractures are high. She has hx of Parkinsonism (drug induced), DM, hx of smoking, ETOH use, PPI use, SSRIs use, all increase risk of fractures. A. As patient's Ca intake is from Peptamen, about 200mg from 250ml, per nutrition goal is 1170ml, would provide almost 1000 mg a day. When she is deemed safe to swallow, as she is on PPIs, would start Ca citrate 1900 mg (21% elemental Ca) plus Vitamin D twice a day. B. Patient does have severe Vitamin D deficiency; goal is 30 ng/ml and above. Has been started on Ergoclaciferol 50,000 U Q weekly, would continue for 8 weeks. Will recheck 25, Vit D at [facility] outpatient follow up appointment. C. Will order BMD by DXA after dc from hospital D. As she has had hip fracture at such a young age, best treatment as outpatient would be with one of anabolic agents. zolendronic acid can not be used due to severe vit D def. E. I will schedule patient for outpatient visit in concert with ortho follow-up Thank you for allowing me to participate in the care of this very pleasant patient. Sincerely, Dixie Tadeo MD [facility] Osteopor[facility] Service * Plan of Care - Jigar Harding RN - 08/27/2022 6:08 PM EDT OUTCOME EVALUATION NOTE: OUTCOME SUMMARY: Pt A&O x4. VSS. No reports of CP or SOB. C/o pain on buttock. Sacrum is red, barrier cream applied. Ambulated with 2 assist (heavy). NSR on tele- see scanned docs. Continuous tube feeding. Pt continues to have loose BMs. Call marshall within reach. PLAN MOVING FORWARD: Continue tube feeding Discharge planning as appropriate INDIVIDUALIZED FALL PREVENTION INTERVENTIONS: Patient-specific fall risk factors per assessment: [current deficits]: O2 monitor, weakness, tele wires, unfamiliar environment Assistance [level of assistance required for transfers and ambulation]: Heavy 2 assist Supervision [direct monitoring required during toileting and ADLs]: Heavy 2 assist Surveillance [continuous indirect monitoring]: O2 monitor, purposeful rounding, telemetry Patient-specific fall prevention interventions for sensory deficits provided, if applicable: lighting adjusted for specific tasks/activities, nonskid socks/shoes on, bed in lowest/locked position CARE PLAN GOAL OUTCOME EVALUATION: Ongoing. * Care Management - Avani Ayala RN - 08/27/2022 11:58 AM EDT OFFICE OF CARE MANAGEMENT PROGRESS NOTE LOS: Hospital Day 13 days Chart reviewed, care reviewed with primary team and at interdisciplinary rounds. Patient continues to meet inpatient level of care related to: still receiving feeds through Dobhoff tube / Working with PT Current assist of two. Decision Maker: Self Functional status prior to admission: Independent (was using a walker per spouse for her post hip surgery recovery) Home Environment: Others in the home: spouse, pet(s) (dog). Current Living Arrangements: home/apartment/condo. Accessibility Concerns: one level and BM; 3 steps to enter. Current Functional Ability: Completely Dependent *intubated currently DME used at home: walker - rolling (for hip recovery) DME Needed at Discharge: No Patient is insured through: Primary Insurance: [place] Pay[place] / Plan: [place] PRIMARY CARE [place] / Product Type: *No Product type* / Secondary Insurance: N/A Last Physical Therapy Recommendation: swing bed rehabilitation facility with to be determined Last Occupational Therapy Recommendation: [facility] facility with to be determined Plan for discharge is: Pending Hospital Course and PT/OT Recommendations Outpatient Agency/Support Group Needs: Other *TBD Agency Referrals: Family has requested [facility] for rehab. Pt still with Dobbhoff tube andthey do not take that form of feeding at SNF. Awaiting team to have feeding tube conversation before sending referral Transportation: Ambulance Barriers to discharge: Discharge planning Plan going forward: Care Management will continue to follow and assist with discharge planning and coordination of care as indicated. Anticipated Date of Discharge: 08/31/2022 Office of Care Management Surgery Team Deck Engine Operator ERI Pager #[phone] * Consult Note - Elsie Erickson APRN - 08/24/2022 4:20 PM EDT Diabetes Management Team Inpatient Consult Date of Consultation: 08/24/2022 Consult Requested by: Cardiology Reason for Consultation: Ishan Irving is a 62 year old female with a medical history notable for??recent L femoral neck fracture,??bipolar disorder, resolving medication- induced Parkinsonism, insulin-dependent diabetesmellitus,??hx of alcohol use disorder (reported to be in remission for 1.5 years) c/b chronic pancreatitis, iron deficiency anemia,??GERD??c/b??esophagitis &??Farrell's esophagus??presenting in transfer from [facility], suspected to be in cardiogenic shock and found to be in mixed shock with concern for stress cardiomyopathy. We are being consulted to assist with transitioning this patient off of her drip. Patient remains on a tube feeding diet Peptamen AF by NG tube continuous at 45mls/hr. Diabetes History: Ishan Irving has had diabetes since diagnosed with gestational diabetes in 2002 and then [id number]. Current outpatient diabetes regimen: Diabetes Provider: PCP Medications: at home Humalin 40 units am and corrects with novolog before meals. Rarely requires correction, will use 1-2 units prn per her Monitoring is done 3-4 times a day - finger sticks Most recent A1C: Recent Labs 08/15/22 0305 HA1C 6.2* suggesting an average glucose of 131 mg/dL for the past 6-8 weeks. Typical diet is: per her - meals are pretty simple and bland due to reflux issues Breakfast- 1/2 a banana or toast, not a big breakfast fan Lunch- soups, scrambled eggs Supper-chicken fish, meatloaf, pasta. No alcohol, last drink per her thanks2021 a sip of wine Typical exercise regimen is walks, some PT exercises, Trouble with hypoglycemia rare Diabetes education: previously Insulin administration site: stomach and arms Compliance with insulin: good Diabetes Complications Status:not reviewed today Last urine protein measurement: Lab Results Component Value Date MICROALBUR 258.4 12/13/2014 Last Kidney function: Lab Results Component Value Date CREATININE 0.45 (L) 08/24/2022 Last lipid panel: Lipid Panel Current Hospital Diabetes Care: Medications:insulin drip per protocol Monitoring: q 1 hr Diet: tube feeding diet REVIEW OF SYSTEMS: All 12 systems reviewed and negative except as noted per HPI. PMH Past Medical History: Diagnosis Date ??? Bipolar disorder 02/12/2022 Current Hospital Medications: ??? senna 8.6 mg Oral BID ??? enoxaparin 40 mg Subcutaneous Daily ??? metoproloL tartrate 12.5 mg Per NG tube 2 times per day ??? aspirin 81 mg Per NG tube Daily ??? atorvastatin 80 mg Per NG tube QPM ??? clopidogreL 75 mg Per NG tube Daily ??? folic acid 1,000 mcg Per NG tube Daily ??? ferrous sulfate 300 mg Per NG tube Every Other Day ??? valproic acid 190 mg Per NG tube Q6H ??? protein powder 2 Scoop Per NG tube Daily ??? multivitamin with minerals 1 tablet Per NG tube Daily ??? insulin lispro 3-6 Units Subcutaneous TID WC ??? chlorhexidine 15 mL Oral BID ??? pantoprazole 40 mg Intravenous BID ??? sodium chloride 0.9 % (flush) 5 mL Intravenous BID ??? acetaminophen 1,000 mg Oral Q8H LAZARUS Or ??? acetaminophen 1,000 mg Oral Q8H LAZARUS Or ??? acetaminophen 650 mg Rectal Q8H LAZARUS ??? thiamine 100 mg Intravenous Daily Infusions: ??? tube feeding diet 45 mL/hr at 08/24/22 1600 ??? insulin regular human 2.75 Units/hr (08/24/22 1600) PRN: magnesium hydroxide, polyethylene glycoL, bisacodyL, insulin regular human, potassium chloride in water OR potassium chloride in water OR potassium chloride in water, sodium chloride 0.9 % (flush), lidocaine, nitroGLYcerin, glucose 40% oral geL OR dextrose 10% OR glucagon Allergy: Allergies Allergen Reactions ??? Meperidine Hcl CIS - violently ill ??? Metformin Other (See Comments) Severe diarrhea Social history: Social History Tobacco Use ??? Smoking status: Former Years: Types: Cigarettes Quit date: 02/26/2021 Years since quittin.4 ??? Smokeless tobacco: Never Substance Use Topics ??? Alcohol use: Not Currently Alcohol/week: 1.0 standard drink Types: 1 Glasses of wine per week ??? Drug use: Never Family history: No family history on file. Vitals BP 116/81 (BP Location (NBP): Left arm, Patient Position: Lying) Pulse 89 Temp 36.6 ??C (97.9 ??F) (Oral) Resp 12 Ht 152.4 cm (5') Wt 69.3 kg (152 lb 12.5 oz) SpO2 98% BMI 29.84 kg/m?? Physical Exam: Gen: appears mildly uncomfortable everything hurts poor historian. Laying in bed, Respiratory: breathing non-labored Abd: deferred SKIN: No open areas, bruising appreciated or redness to both feet Extremities: sensation intact, unable to palpate Distal pulses Neuro: Moving all extremities. Grossly non-focal Labs: Lab Results Component Value Date BUN 17 08/24/2022 CREATININE 0.45 (L) 08/24/2022 GLUCOSE 155 08/24/2022 ESTGFR 109 08/24/2022 Lab Results Component Value Date HA1C 6.2 (H) 08/15/2022 Lab Results Component Value Date MICROALBUR 258.4 12/13/2014 Assessment: Ishan Irving is a 62 year old female with a medical history notable for??recent L femoral neck fracture,??bipolar disorder, resolving medication- induced Parkinsonism, insulin-dependent diabetesmellitus,??hx of alcohol use disorder (reported to be in remission for 1.5 years) c/b chronic pancreatitis, iron deficiency anemia,??GERD??c/b??esophagitis &??Farrell's esophagus??presenting in transfer from [facility], suspected to be in cardiogenic shock and found to be in mixed shock with concern for stress cardiomyopathy. A1C of 6.2% upon admission suggesting an average BG of 131 mg/dL for the past 6-8 weeks. Currently has variability of blood glucose levels while hospitalized requiring adjustment of insulin regimen and DM medications. We are being consulted to assist with transitioning this patient off of her drip. Patient remains on a tube feeding diet Peptamen AF by NG tube continuous at 45mls/hr. This provides her with 20 gramscarbohydrates Q 4 hours. On the insulin drip she required 51 units of insulin over the last 24 hours. If we consider 50% of these insulin requirements basal requirements, and 50% prandial or tube feed requirements, lantus at 25 units could be administered to transition her off of the drip with the addition of Q 4 hour lispro to cover the 20 grams of carbohydrates that she receives during 4 hours of her tube feed. Since this is a continuous tube feed she would need 4 units Q 4 hours, this calculates to a 1:5 insulin to carbohydrate ratio. Her weight based lantus dosing calculates to a range of 24 to 28 units. Her home insulin regimen isNPH 40 units daily. Plan: 1. Lantus 25 units Please keep Insulin IV drip running for at least 2 hours after patient receives Lantus bolus. Drip should be running at less than 3 units per hour and glucose less than 200mg/dl prior to discontinuing the drip. 2. Tube feed associated Lispro: 4 units Q 4 hours to cover 20 grams carbohydrates in her Peptamen AF running at 45 mls hr continuous. IF tube feed stops, this needs to be held. If formula or rate changes, please call for new orders, this is based on a 1:5 insulin to carb ratio 3. Correction Lispro, ISF moderate 4. Diet: Peptamen AF at 45mls/hr continuous. 5. Monitoring: Q1--> Q4 Discharge Considerations: Medications - Outpatient treatment regimen recommendations pending based on the hospital course. okay with transition to Lantus, he is unclear why she is on NPH Monitoring - continue BG tid ac & hs Diet - low fat/low carb diet Exercise - weight-bearing exercise 30 min/day, as tolerated Thank you for allowing us to provide care for your patient Elsie Erickson APRN Endocrinology Diabetes Management Service Pager: [phone] 70 minutes of this 80 minute visit was spent in counseling on diabetes and treatment plan, reviewing all glucose and insulin data as well as relevant laboratory results with the patient and in the coordination of care on the inpatient unit. * Consult Note - Rober Mensah MD - 08/21/2022 11:32 AM EDT Orthopaedic Surgery Consult Note Attending: Dr. Santamaria We are seeing Ishan Irving at the request of Milagros Hernandez. Chief Complaint: c/f L hip infection History of Present Illness: Ishan Irving is a 62 y.o. female with recent L femoral neck fracture,??bipolar disorder, resolving medication-induced Parkinsonism, insulin-dependent diabetes mellitus,??hx of alcohol use disorder (reported to be in remission for 1.5 years) c/b chronic pancreatitis, iron deficiency anemia,??GERD??c/b??esophagitis &??Farrell's esophagus??presented as transfer from [facility] 08/15/22 suspected to be in cardiogenic shock and found to be in mixed shock with concern for stress cardiomyopathy. Cardiology primary team has reached out out of concern for left hip infection as the cause of pt's recent fevers and elevated WBC, which have both now improved. Pt had an ORIF of the L Hip at OSH ~2 wks ago. Pt had a CT of the L hip done which showed uncomplicated L femoral neck ORIF with unchangedalignment, as well as subcutaneous fluid collection of unclear etiology which may represent normal postsurgical findings per the radiology read. Notably a CT of the chest was done as part of this workup for her fevers/WBC which showed bilateral pneumonia and a cavitary lesion in the left upper and left lower lobes of the lung. Pt is intubated and unable to provide a history currently, but reportedly has had no recent injuries or accidents in the interval since her L hip surgery. She is on SQH. Pt with fluctuating attention on exam but was alert and able to nod yes and no and follow commands. Past Medical History: Patient Active Problem List Diagnosis Code ??? GERD (gastroesophageal reflux disease) K21.9 ??? Farrell's esophagus K22.70 ??? T2DM (type 2 diabetes mellitus) E11.9 ??? BMI 37.0-37.9, adult Z68.37 ??? Bipolar disorder F31.9 ??? Neuroleptic-induced parkinsonism G21.11 ??? Shock R57.9 Past Surgical History: Past Surgical History: Procedure Laterality Date ??? PRO COLONOSCOPY, BIOPSY N/A 03/20/2016 COLONOSCOPY FLEXIBLE, WITH BX performed by David Dejesus MD at [facility] ??? PRO COLONOSCOPY, DIAGNOSTIC N/A 03/01/2020 COLONOSCOPY, DIAGNOSTIC performed by David Dejesus MD at [facility] ??? PRO ENDOSCOPIC US EXAM, ESOPH N/A 03/31/2022 UPPER EUS- ENDOSCOPIC ULTRASOUND performed by David Dejesus MD at [facility] ??? PRO UPPER GI ENDOSCOPY, BIOPSY N/A 04/03/2014 UPPER GASTROINTESTINAL ENDOSCOPY,WITH BIOPSY SINGLE OR MULTIPLE performed by David [facility]us MDat [facility] ??? PRO UPPER GI ENDOSCOPY, BIOPSY N/A 03/20/2016 EGD WITH BIOPSY performed by David Dejesus MD at [facility] ??? PRO UPPER GI ENDOSCOPY, BIOPSY N/A 11/22/2018 EGD WITH BIOPSY (WRVU 2.49) performed by David Dejesus MD at [facility] ??? PRO UPPER GI ENDOSCOPY, BIOPSY N/A 03/01/2020 UPPER GASTROINTESTINAL ENDOSCOPY,WITH BIOPSY SINGLE OR MULTIPLE (WRVU 2.49) performed by David Dejesus MD at [facility] ??? PRO UPPER GI ENDOSCOPY, BIOPSY N/A 09/23/2021 EGD WITH BIOPSY (WRVU 2.49) performed by David Dejesus MD at [facility] ??? PRO UPPER GI ENDOSCOPY, BIOPSY N/A 03/31/2022 EGD WITH BIOPSY (WRVU 2.49) performed by David Dejesus MD at [facility] ??? PRO UPPER GI ENDOSCOPY, BIOPSY N/A 07/03/2022 EGD WITH BIOPSY (WRVU 2.49) performed by David Dejesus MD at [facility] ??? PRO UPPER GI ENDOSCOPY, DIAGNOSTIC N/A 04/03/2014 EGD, UPPER GI ENDOSCOPY performed by David Dejesus MD at [facility] ??? PRO UPPER GI ENDOSCOPY, DIAGNOSTIC N/A 03/01/2020 EGD, UPPER GI ENDOSCOPY performed by David Dejesus MD at [facility] Allergies Allergen Reactions ??? Meperidine Hcl CIS - violently ill ??? Metformin Other (See Comments) Severe diarrhea No current facility-administered medications on file prior [...] for dosing. 15 mL 11 ??? Insulin Sidney, Disposable, (BD INSULIN PEN NEEDLE UF MINI) 31 x 3/16 Needle 1 Device by [facility].(Non-Drug; Combo Route) route 3 times daily as needed. 100 each 11 Family History: Negative for bleeding/clotting disorders or anesthetic complications. Social History: Social History Occupational History ??? Not on file Tobacco Use ??? Smoking status: Former Years: .00 Types: Cigarettes Quit date: 02/26/2021 Years since quittin.4 ??? Smokeless tobacco: Never Substance and Sexual Activity ??? Alcohol use: Not Currently Alcohol/week: 1.0 standard drink Types: 1 Glasses of wine per week ??? Drug use: Never ??? Sexual activity: Yes Partners: Male Review of Systems: As per HPI, otherwise negative Objective: Temp: [37.2 ??C (99 ??F)-38.4 ??C (101.1 ??F)] Heart Rate: [67-120] Resp: [18-31] BP: (99-131)/(35-93) SpO2: [93 %-100 %] Heart Rate from SpO2: -- Gen: Intubated and sedated HEENT: NC, AT. CV: Regular rate assessed peripherally Pulm: Normal respiratory effort on vent Right Upper Extremity Exam: No ecchymosis, erythema, or overlying skin changes No effusion in shoulder / elbow / wrist No obvious TTP clavicle, shoulder, humerus, elbow, forearm, wrist, hand Apparent painless range of motion of shoulder / elbow / wrist / fingers Sensation appears intact to light touch in M/R/U distributions Motor intact wrist flexion/extension, station mechanic helper Brisk capillary refill distally Left Upper Extremity Exam: No ecchymosis, erythema, or overlying skin changes No effusion in shoulder / elbow / wrist No obvious TTP clavicle, shoulder, humerus, elbow, forearm, wrist, hand Apparent painless range of motion of shoulder / elbow / wrist / fingers Sensation appears intact to light touch in M/R/U distributions Motor intact wrist flexion/extension, station mechanic helper Brisk capillary refill distally Right Lower Extremity Exam: No ecchymosis, erythema, or overlying skin changes No effusion in knee / ankle No TTP pelvis, hip, femur, knee, tib/fib, ankle, foot Painless range of motion of Hip / knee / ankle Sensation appears intact to light touch in Saphenous/Sural/LFC/Femoral/MP/LP/T/DP/SP distributions Brisk capillary refill distally Left Lower Extremity Exam: L hip incision appears well healing without erythema No ecchymosis, erythema, or overlying skin changes No effusion in knee / ankle No obvious TTP pelvis, hip, femur, knee, tib/fib, ankle, foot Apparent painless range of motion of Hip / knee / ankle Sensation appears intact to light touch in Saphenous/Sural/LFC/Femoral/MP/LP/T/DP/SP distributions Brisk capillary refill distally Labs: Last 3 wbc, hgb, hct plt Recent Labs 08/21/22 0346 08/20/22 0030 08/19/22 0120 WBC 20.9* 28.0* 28.3* HGB 7.4* 8.2* 8.7* HCT 24.2* 26.4* 27.9* PLATELET 381* 351 301 Last 3 Lytes Recent Labs 08/21/22 0346 08/20/22 0030 08/19/22 1345 NA 145 144 145 K 3.7 4.1 4.1 CL 107 107 106 CO2 31 28 29 BUN 22* 21* 20* CREATININE 0.60* 0.55* 0.59* Imaging: Xray L hip/pelvis (08/21/22): pending CT L Hip (08/21/22): Multiple foci of subcutaneous nonloculated fluid collections potentially representing normal postsurgical changes/seroma, infectious etiology cannot be excluded Assessment/Plan: 62 y.o. female multiply comorbid IDDDM, chronic pancreatitis as above currently admitted as a transfer from outside hospital with cardiogenic shock which is now improved with the patient hemodynamically stable off pressors, as well as persistent fevers and elevated WBC while an inpatient in the setting ORIF L hip 2 weeks ago. Orthopaedics has been consulted out of concern for L hip infection as the cause of her infectious presentation after a CT of the L hip was ordered by the primary team which showed multiple foci of subcutaneous fluid collections of unclear etiology. Overall, I have a low concern for acute postsurgical infection as a cause of the patient's elevatedWBC and fevers, both of which have now improved on IV antibiotics. She is now afebrile today 08/21/2022 with WBC trending down to 20.9 (28.0), ESR and CRP are pending. Patient had a CT of the chest done which showed multifocal pneumonia with a cavitary lesion in the left upper and lower lobes of thelung, which is a more likely cause of the signs of systemic infection that she has had. Findings onCT of her left hip are more likely consistent with normal postsurgical changes and seroma rather than abscess or acute postsurgical infection. On exam, she was intubated and sedated which did limit exam, however she was responding yes/no and following commands albeit intermittently. She was alert during exam of the left hip and did not appear to have any pain with passive range of motion of the joint, which is reassuring against septic arthritis. Her left hip incision appears very well-healing without any surrounding erythema. Attempting to aspirate the left hip or the fluid collection seen on CT would most likely be low yield given the above and would pose unnecessary risk and potentially introduce infection to recently implanted hardware. Overall, there is not currently an indication for orthopedic intervention with regards to the left hip. Recommend continuing IV antibiotics and medical management of pt's other known sources of systemic infection. Orthopaedics will sign off. Please page [phone] when the patient is extubated and examinable for more reliable exam of the L hip. We will f/u the pending XR and ESR/CRP and reach out as needed. - Activity: WBAT LLE - DVT prophylaxis: Per primary, on SQH - Antibiotics: Per primary, on Zosyn - Diet: Per primary - Imaging needed: XR L hip and pelvis Rober Mensah MD Orthopaedic Surgery, [phone] * Consult Note - Parris Leyva MD - 08/20/2022 3:35 PM EDT INFECTIOUS DISEASE INITIAL CONSULT NOTE Reason for Consult: Fever in ICU Bilateral Pneumonia Consulting Service: Cardiology Consulting Attending: Carlos Terry MD Admission Date: 08/14/2022 History of Present Illness:The patient is a 62 y.o. female with a history of Left femoral neck fracture, mood disorder, IDDM, Hx of alcohol dependence, Hx of chronic pancreatitis, GERD/Barrets esophagitis who was transferred from [facility] with cardiogenic shock. Patient fell on August 08 and had a femoral head fracture and underwent fixation with screws and discharged home on 08/10. She was doing well postoperatively and walking around the house with a walker. Patient went to sleep Wednesday night and was unresponsive Wednesday morning. She had taken one 5 mg dose of oxycodone prior to sleep. EMS called, Hypoxic on arrival, Mildly responsive to narcan. OSH Labs: - ABG: pH 7.43, pCO2 34, pO2 68 on 4L NC - CBC: WBC 15, Hb 11, PLT 254 - BMP: Na 139, K 4.1, Cr 1.1, AST 14, ALT 13 - Cardiac: Troponin I <50, proBNP 1041, EKG sinus tachycardia - Procalcitonin: 0.5 - Infectious: Blood cultures NGTD, respiratory panel negative for Covid, Flu, RSV ?? Imaging: - CTA chest: No evidence of pulmonary embolism. Severe bilateral pneumonia. Marked diffuse esophageal wall thickening. Findings could be inflammatory however malignancy not excluded. - CT head w/o contrast: No acute intracranial findings. ?? Patient was started on vancomycin and Zosyn,Was switched to cefepime and azithromycin. Solu-Medrol.Respiratory status worsened eventually requiring intubation. TTE showed EF of 25% without WMA. Troponin increased, was started on heparin infusion and transferred to [facility] on 08/15. Vasopressor requirement on admission. Pip/tazo and Vancomycin continued. 08/18 MRSA Nasal PCR negative, Azithromycin added for atypical coverage EEG showed generalized periodic discharges with triphasic morphology, no epileptiform discharges seen Patient remained unresponsive, neurology consulted Review of Systems: Pertinent positives and negatives noted in HPI. All other systems reviewed and found negative. Medications: Aspirin, Lipitor, chlorhexidine, Plavix, heparin, metoprolol, pantoprazole, potassium chloride Past Medical and Surgical History: Reviewed Family History: Reviewed Social History and Habits: lives with Travel History: No recent travel Labs: WBC 28, hemoglobin 8.2, platelet 351 Na 144, K 4.1, Cr 0.55 ALT 20, AST 39, Cr 0.55 UA occasional yeast, WBC 3 Antibiotics: Pip/tazo( 08/15-) Azithromycin 08/18 Vancomycin( 08/15-08/17) Microbiology: 08/14 blood culture ngtd at 5 days 08/15 MRSA nasal PCR negative 08/15 Blood cultures no growth at 5 days 08/15 Urine culture negatice 08/19 blood culture ngtd 08/19 induced sputum Allergies: No known antibiotic allergies Lines/Mcrae/Hardware: PICC line/12 Peripheral IV Urethral catheter 08/15 Echo: Left ventricular systolic function is moderately reduced. The left ventricular ejection fraction is 32% by Dahl's biplane. The apical portions of the LV remain akinetic with preservation of the basal segments. There is no apical thrombus seen with echo enhancing agent. -RV systolic function is preserved. -There is no significant valve disease I have independently visualized and interpreted the following studies and my comments are Radiology/Studies/Procedures: Personally reviewed EKG: QTc 454 Msec Imaging: reviewed Vital Signs: Temperature 38.3, heart rate 101, blood pressure 124/63, mechanically ventilated, 21% FiO2, PS 10, tidal volume 450 Physical Exam: Physical Exam Vitals and nursing note reviewed. Constitutional: General: She is not in acute distress. Comments: intubated HENT: Head: Normocephalic and atraumatic. Right Ear: External ear normal. Left Ear: External ear normal. Nose: Comments: NG tube in place, ET tube Eyes: Extraocular Movements: Extraocular movements intact. Pupils: Pupils are equal, round, and reactive to light. Cardiovascular: Rate and Rhythm: Regular rhythm. Tachycardia present. Heart sounds: Normal heart sounds. No murmur heard. Pulmonary: Effort: No respiratory distress. Breath sounds: Normal breath sounds. No wheezing. Comments: Appears dyspneic Absent breath sounds in lung bases Abdominal: General: Bowel sounds are normal. There is no distension. Palpations: Abdomen is soft. Tenderness: There is no abdominal tenderness. Musculoskeletal: Right lower leg: No edema. Left lower leg: No edema. Comments: Left lateral thigh incision covered with dressing Skin: General: Skin is warm. Neurological: Comments: Follow commands Able to squeeze my hand with left hand Assessment: Ishan Irving is a 62 y.o. female with recent left femoral neck fracture s/p ORIF who was admitted with unresponsiveness. CT chest consistent with bilateral pneumonia, intubated and requiring vasopressors, with persistent fevers gradually uptrending while she has been on Zosyn and vancomycin(stopped 08/17). Infectious disease consulted for persistent fevers. Etiology of fever in ICU settings is broad and in this case would include -Infectious causes: bilateral pneumonia(on treatment), left hip postsurgical infection(clinically no signs of cellulitis). VAP less likely given improving respiratory status. Sinusitis a possibility since she has a NG tube and is intubated, Negative blood cultures, Normal bilirubin, LFTs, negative C. difficile screen and normal UA essentially rules out other infectious etiologies -Non infectious etiologies could include drug fever, PE(negative CTA on admission), thrombophlebitis, AMI. Normal TSH, weaned off pressors, EEG negative for seizures are reassuring and rule out non infectious etiologies of fever. We would recommend checking CT chest with contrast(to rule out empyema or abscess development), left hip CT(to rule out post operative infection/abscess) and lipase(history of chronic pancreatitis). If initial work-up remains negative sinus x-ray to rule out sinusitis would be warranted Recommendations: Continue Zosyn 3.375 g IV every [address] chest with contrast Check CT left hip with contrast Check lipase Check daily CBC and BMP Patient discussed with ID attending Dr. Parris Leyva Recommendations discussed with primary treating team. ID consult service will continue to follow. Please page ID Red team (pager [phone]) with questions or concerns. Stefan Garsia MD 08/20/2022 3:35 PM Pager: [phone] Infectious Diseases Attending I saw the patient with the infectious diseases fellow. I have made some modifications and agree with the presentation of data and the assessment and plan as outlined above. Parris Leyva MD Professor, Department of Medicine Page [phone] minutes of this 80 minute visit were spent on the unit in coordination of care with the patient,regarding treatment of infection as detailed in note above. * Care Management - Valerie Dick RN - 08/20/2022 3:24 PM EDT OFFICE OF CARE MANAGEMENT PROGRESS NOTE LOS: Hospital Day 6 days Chart reviewed, care reviewed with primary team and at interdisciplinary rounds. Patient continues to meet inpatient level of care related to: shock. Per note by Dr. Terry on 08/20/2022: Assessment & Plan: Ms. Irving is a 62 year old female with a medical history notable for insulin-dependent diabetes mellitus, bipolar disorder, alcohol use disorder in remission, iron deficiency anemia, and recent L femoral neck fracture s/p surgical fixation presenting in transfer with acute hypoxic respiratory failure, pneumonia, and newfound heart failure. ?? Remains improved from hemodynamic and respiratory perspectives, off pressors and on minimal ventilatory support. Making some progress with respect to mental status: patient intermittently responding to commands overnight and this morning, though still not awake enough for trial of extubation. Neurowork-up continued overnight, with MRI now complete and not concerning for acute process, inflammatory/infectious change, or hypoxic injury. Has had persistent leukocytosis (28) and low grade fever (100.6 overnight). Blood cultures were obtained yesterday, and she remains on zosyn. No clear potential sources identified. Low overall suspicion for MESSAGE CLERK infection given recent MRI and improvement in mental status. Will continue to monitor for mental status improvement today, as well as furosemide with goal net even and phosphorus repletion. Will eventually need LHC following extubation. Decision Maker: Self Functional status prior to admission: Independent (was using a walker per spouse for her post hip surgery recovery) Home Environment: Others in the home: spouse, pet(s) (dog). Current Living Arrangements: home/apartment/condo. Accessibility Concerns: one level and BM; 3 steps to enter. Current Functional Ability: Completely Dependent *intubated currently DME used at home: walker - rolling (for hip recovery) DME Needed at Discharge: No Patient is insured through: Primary Insurance: [place] Payor: [place] / Plan: [place] PRIMARY CARE PLUS / Product Type: *No Product type* / Secondary Insurance: N/A Last Physical Therapy Recommendation: with Last Occupational Therapy Recommendation: with Plan for discharge is: Pending Hospital Course and PT/OT Recommendations Outpatient Agency/Support Group Needs: Other *TBD Agency Referrals: Not Applicable - pending hospital course. Transportation: TBD Barriers to discharge: Discharge planning ICU Needs: ICU specific devices / therapies, mechanically ventilated, vasoactive medications Plan going forward: Care Management will continue to follow and assist with discharge planning and coordination of care as indicated. Anticipated Date of Discharge: 08/24/2022 * Consult Note - Tim Emmanuel MD - 08/20/2022 7:50 AM EDT Neurology Consultation Patient name: Ishan Irving Date of : 1960 PCP: Chris Stanley APRN CC: Somnolence We have been asked to see Ishan Irving by Niurka Ayala HPI: Ishan Irving is a 62 y.o. female with PMHx of bipolar disorder, etOH, DM, esophagitis who presented to OSH 3 days ago after being found unresponsive at home. Pt found to have likely pneumonia+/- aspiration, newly reduced EF. Pt was at baseline functioning before this episode. History limited due to patient's mental status;additional history obtained from at bedside. Pt apparently fell on August 08 - had a clear break through the femoral head; she subsequently underwent orthopedic fixation with three screws and was sent home on WednesdayAugust 10. Pt was apparently doing well for the first two days postop, walking around the house with a walker, and had full cognition intact. However, pt and her went to sleep Wednesday night and he found her to be unresponsive on Wednesday morning. According to , she had taken one 5 mg dose of oxycodone for pain before bed. She was given narcan in the field with a slight improvement in mental status, however, no improvement with additional doses. At outside hospital she was found to have severe pneumonia (aspiration vs viral vs CAP) complicated by severley depressed LVEF (~25%). Her respiratory status worsened requiring intubation, sedation and pressor support, and she was transferred to [facility] on 08/14/22. Over the course of several days she had improvements in respiratory and hemodynamic status, and she wasweaned off of pressors and sedation. By 08/18, she had been off of sedation for 24 hours and remained unresponsive, at which point neurology was consulted. Initial workup included EEG and CTH. 24h events: - Pt now opening eyes and blinking - Intemittently following commands today as per (squeezing fingers, wiggling toes) - Continues having some spontaneous movements of the arms and legs. - Hemodynamic status and respiratory status continuing to improve - routine EEG with triphasic spikes and generalized delta slowing - CTH with no acute intracranial process - MRI completed yesterday without significant findings Past Medical History: Past Medical History: Diagnosis Date ??? Bipolar disorder 02/12/2022 Medications: Current Outpatient Medications Medication Instructions ??? Blood Sugar Diagnostic (ONETOUCH ULTRA TEST) Strip 1 each, Other, 3 TIMES DAILY, by Other route. 1 box = 100 test strips; 3 boxes = 300 test strips. ??? Blood-Glucose Meter (ONETOUCH ULTRA2) Kit by Other route. 1 = one blood glucose meter kit. ??? divalproex EC (DEPAKOTE) 500 mg, Oral, 2 TIMES DAILY ??? HumuLIN N NPH Insulin KwikPen 20 Units, Subcutaneous, DAILY ??? insulin aspart U-100 (NOVOLOG FLEXPEN U-100 INSULIN) 10-20 Units, Subcutaneous, 3 TIMES DAILY BEFORE MEALS, Refer to correction factor scale for dosing. ??? Insulin [place], Disposable, (BD INSULIN PEN NEEDLE UF MINI) 31 x 3/16 Needle 1 Device, Misc.(Non-Drug; Combo Route), 3 TIMES DAILY PRN ??? lancets (ONE TOUCH DELICA) 33 gauge Misc 1 each, Other, 3 TIMES DAILY, by Other route. 1 box = 100 test strips; 3 boxes = 300 test strips. ??? pantoprazole EC (PROTONIX) 40 mg, Oral, 2 TIMES DAILY ??? QUEtiapine (SEROQUEL) 50 mg, Oral, DAILY ??? sucralfate (CARAFATE) 1 g, Oral, 4 TIMES DAILY Allergy: Allergies Allergen Reactions ??? Meperidine Hcl CIS - violently ill ??? Metformin Other (See Comments) Severe diarrhea Family History: No family history on file. Social History: Social History Social History Narrative ??? Not on file Review of systems: Unable to assess d/t mental status Physical Exam: Patient Vitals for the past 24 hrs: Temp Pulse Resp BP SpO2 FiO2 (%) O2 Device 08/19/22 0800 37.9 ??C (100.2 ??F) (Abnormal) 110 27 no documentation 97 % 30 % Ventilator 08/19/22 1000 37.8 ??C (100 ??F) (Abnormal) 115 (Abnormal) 31 no documentation 94 % 30 % Ventilator 08/19/22 1135 (Abnormal) 38.1 ??C (100.6 ??F) (Abnormal) 112 (Abnormal) 33 no documentation 94 % nodocumentation no documentation 08/19/22 1136 37.6 ??C (99.6 ??F) no documentation no documentation no documentation no documentation no documentation no documentation 08/19/22 1143 (Abnormal) 38.2 ??C (100.8 ??F) (Abnormal) 113 30 no documentation 100 % no documentation no documentation 08/19/22 1200 (Abnormal) 38.1 ??C (100.6 ??F) (Abnormal) 116 30 no documentation 96 % 30 % Ventilator 08/19/22 1233 no documentation no documentation 30 no documentation 92 % no documentation no documentation 08/19/22 1400 (Abnormal) 38.1 ??C (100.6 ??F) 100 22 no documentation 100 % 30 % Ventilator 08/19/22 1527 no documentation no documentation 25 no documentation 99 % no documentation no documentation 08/19/22 1600 (Abnormal) 38 ??C (100.4 ??F) 97 19 no documentation 99 % 30 % Ventilator 08/19/22 1800 (Abnormal) 38 ??C (100.4 ??F) (Abnormal) 107 22 no documentation 98 % 30 % Ventilator 08/19/22 1942 no documentation no documentation 29 no documentation 92 % no documentation no documentation 08/19/22 2000 (Abnormal) 38 ??C (100.4 ??F) (Abnormal) 108 22 no documentation 96 % 30 % Ventilator 08/19/22 2001 37.4 ??C (99.3 ??F) no documentation no documentation no documentation no documentation no documentation no documentation 08/19/22 2200 (Abnormal) 38 ??C (100.4 ??F) (Abnormal) 110 25 no documentation 97 % 30 % Ventilator 08/19/22 2227 no documentation (Abnormal) 117 no documentation 110/60 no documentation no documentation no documentation 08/19/22 2239 (Abnormal) 38 ??C (100.4 ??F) (Abnormal) 109 22 no documentation 99 % no documentation no documentation 08/20/22 0016 (Abnormal) 38 ??C (100.4 ??F) (Abnormal) 101 24 117/62 98 % 30 % Ventilator 08/20/22 0100 (Abnormal) 38.1 ??C (100.6 ??F) (Abnormal) 101 20 91/47 98 % no documentation no documentation 08/20/22 0140 no documentation no documentation 26 no documentation 99 % no documentation no documentation 08/20/22 0200 (Abnormal) 38 ??C (100.4 ??F) (Abnormal) 112 28 123/64 99 % 30 % Ventilator 08/20/22 0355 37.8 ??C (100 ??F) 90 20 123/68 98 % no documentation no documentation 08/20/22 0400 37.8 ??C (100 ??F) 92 20 120/76 98 % 30 % Ventilator 08/20/22 0500 37.7 ??C (99.9 ??F) 93 18 94/58 98 % no documentation no documentation 08/20/22 0600 37.7 ??C (99.9 ??F) 91 18 118/76 99 % no documentation no documentation 08/20/22 0631 37.7 ??C (99.9 ??F) (Abnormal) 102 26 130/72 98 % 30 % Ventilator HEENT: On vent Abd: soft, nontender, nondistended Ext: no edema, adequate pulses Neuro exam: MSE: unable to arouse, not responsive to noxious stimuli CN: Pupils equal, round, reactive to light and accommodation; unable to evaluate full CN function due to mental status Motor: Unable to assess strength; some spontaneous movements noted Reflexes Areflexic bilat biceps, brachioradialis, trace triceps reflex intact Areflexic bilat patella, achilles VOR absent Corneal and pupillary reflexes intact Sensation: Unable to assess due to mental status Coordination: Deferred Gait: Deferred Labs: Recent Results (from the past 24 hour(s)) POCT Glucose Result Value Ref Range POC Glucose 229 (H) 65 - 199 mg/dL POCT Glucose Result Value Ref Range POC Glucose 189 65 - 199 mg/dL POCT Glucose Result Value Ref Range POC Glucose 186 65 - 199 mg/dL Basic Metabolic Panel (non-fasting) Result Value Ref Range Glucose Lvl 224 (H) 65 - 199 mg/dL BUN 20 (H) 8 - 18 mg/dL Creatinine 0.59 (L) 0.70 - 1.20 mg/dL Sodium 145 135 - 145 mmol/L Potassium 4.1 3.5 - 5.0 mmol/L Chloride 106 98 - 107 mmol/L CO2 29 22 - 31 mmol/L Anion Gap 10 5 - 15 mmol/L Calcium 8.6 8.5 - 10.5 mg/dL Estimated GFR 102 >=60 mL/min/1.73 m?? Phosphorus Result Value Ref Range Phosphorus 2.9 2.5 - 4.5 mg/dL Urinalysis with reflex Culture Specimen: Indwelling Catheter Urine Result Value Ref Range Glucose UA 100 (A) Negative mg/dL Protein UA 30 (A) Negative mg/dL Bilirubin UA Negative Negative mg/dL Urobilinogen UA Normal Normal mg/dL pH UA 5.5 5.0 - 8.0 Blood UA Large (A) Negative mg/dL Ketones UA Negative Negative mg/dL Nitrite UA Negative Negative Leukocytes UA Trace (A) Negative mcL Appearance UA Clear Clear Spec [place] Pos UA 1.018 1.005 - 1.030 Color UA Yellow Yellow Culture Reflexed No Urinalysis Microscopic Exam Result Value Ref Range RBC UA 1 0 - 4 /HPF WBC UA 3 0 - 5 /HPF Bacteria UA Rare (A) None /HPF Yeast [place] UA Occasional (A) None /HPF Yeast Hyph UA Occasional (A) None /HPF Squam Epith UA 1 <=4 /HPF Hyaline Cast UA 2 0 - 2 /LPF Lactate, whole blood, send to lab ([facility] Result Value Ref Range Lactate WB 1.6 0.5 - 2.2 mmol/L Lower Respiratory Culture Sputum Induced Specimen: Sputum Induced Result Value Ref Range Gram Stain Many Neutrophils seen Few squamous epithelial cells seen No microorganisms seen. POCT Glucose Result Value Ref Range POC Glucose 177 65 - 199 mg/dL POCT Glucose Result Value Ref Range POC Glucose 154 65 - 199 mg/dL POCT Glucose Result Value Ref Range POC Glucose 172 65 - 199 mg/dL POCT Glucose Result Value Ref Range POC Glucose 165 65 - 199 mg/dL POCT Glucose Result Value Ref Range POC Glucose 200 (H) 65 - 199 mg/dL POCT Glucose Result Value Ref Range POC Glucose 200 (H) 65 - 199 mg/dL POCT Glucose Result Value Ref Range POC Glucose 177 65 - 199 mg/dL Magnesium Result Value Ref Range Magnesium 0.94 0.69 - 1.07 mmol/L Phosphorus Result Value Ref Range Phosphorus 1.7 (L) 2.5 - 4.5 mg/dL Basic Metabolic Panel (non-fasting) Result Value Ref Range Glucose Lvl 188 65 - 199 mg/dL BUN 21 (H) 8 - 18 mg/dL Creatinine 0.55 (L) 0.70 - 1.20 mg/dL Sodium 144 135 - 145 mmol/L Potassium 4.1 3.5 - 5.0 mmol/L Chloride 107 98 - 107 mmol/L CO2 28 22 - 31 mmol/L Anion Gap 9 5 - 15 mmol/L Calcium 8.5 8.5 - 10.5 mg/dL Estimated GFR 104 >=60 mL/min/1.73 m?? Hemogram Result Value Ref Range WBC 28.0 (H) 4.0 - 9.5 x10(3)/mcL RBC 4.08 4.00 - 5.21 x10(6)/mcL Hemoglobin 8.2 (L) 11.7 - 15.5 g/dL Hematocrit 26.4 (L) 35.7 - 45.8 % MCV 64.7 (L) 82.6 - 94.4 fL MCH 20.1 (L) 27.1 - 32.0 pg MCHC 31.1 (L) 31.7 - 35.0 g/dL Platelets 351 145 - 357 x10(3)/mcL RDWSD 63.9 (H) 37.0 - 46.0 fL RDWCV 29.8 (H) 11.5 - 14.1 % MPV 10.1 7.6 - 12.9 fL nRBC % Auto 0.8 % nRBC Abs Auto 0.230 (H) 0.000 - 0.000 x10(3)/mcL Differential, Automated Result Value Ref Range Neutrophils % 77.6 % Neutr Abs (ANC) 21.72 (H) 1.70 - 6.10 x10(3)/mcL Lymphocytes % 8.3 % Lymphocytes Abs 2.3 0.9 - 3.2 x10(3)/mcL Monocytes % 6.5 % Monocyte Abs 1.8 (H) 0.3 - 0.9 x10(3)/mcL Eosinophils % 0.2 % Eosinophils Abs 0.0 0.0 - 0.4 x10(3)/mcL Basophils % 0.3 % Basophils Abs 0.1 0.0 - 0.1 x10(3)/mcL Immature Gran % 7.10 % Almaz Gran Abs 2.00 (H) 0.00 - 0.04 x10(3)/mcL Scan, Peripheral Blood Result Value Ref Range Plat Estimate Normal RBC Morphology Abnormal Macrocytes 1-5 /HPF Microcytes gtr than 10 /HPF Hypochromia Moderate Polychromasia Present >5/HPF Ovalocytes 1-5 /HPF Target Cells 1-5 /HPF POCT Glucose Result Value Ref Range POC Glucose 140 65 - 199 mg/dL POCT Glucose Result Value Ref Range POC Glucose 114 65 - 199 mg/dL POCT Glucose Result Value Ref Range POC Glucose 114 65 - 199 mg/dL BLOOD GAS 2 ARTERIAL Result Value Ref Range pH Art 7.56 (H) 7.35 - 7.45 pCO2 Art 31 (L) 35 - 45 mmHg pO2 Art 92 85 - 104 mmHg HCO3 Art 27.3 (H) 20.0 - 26.0 mmol/L BE Art 5.0 (H) -3.0 - 3.0 mmol/L Hgb Blood Gas 8.5 (L) 11.7 - 15.5 g/dL O2HB Art 96.0 94.0 - 97.0 % COHB Art 0.3 % METHB Art 0.9 <=1.5 % Na Whole Blood 141 135 - 145 mmol/L K Whole Blood 3.6 3.5 - 5.0 mmol/L ICa Whole Blood 1.15 1.15 - 1.33 mmol/L CL Whole Blood 110 (H) 98 - 107 mmol/L Gluc Whole Bld 160 65 - 199 mg/dL Lactate WB 1.6 0.5 - 2.2 mmol/L FIO2 Art 30 % PF Ratio Art 307 POCT Glucose Result Value Ref Range POC Glucose 190 65 - 199 mg/dL POCT Glucose Result Value Ref Range POC Glucose 233 (H) 65 - 199 mg/dL Diagnostic Tests and Imaging: CT head from 08/16/22 IMPRESSION No acute intracranial abnormality and no change from prior CTH from 08/18/22 IMPRESSION No acute intracranial process MRI brain wo contrast 08/19/22 No acute infarction, mass or mass effect Assessment and plan: Pt is a 62 y/o female with hx of bipolar, etOH, who presented to OSH 08/12 after being found unresponsive by her . She was found to have severe bilateral pneumonia; aspiration vs viral, vs CAP. This is complicated by newly reduced EF. This could be consistent with stress cardiomyopathy or NSTEMI. Now she is slow to emerge from sedation (off of fentanyl and propofol for more than 24 hours) and has increased secretions. Routine EEG showed continuous generalized delta slowing and generalized periodic discharges with triphasic morphology which are not epileptiform in nature and are likely a marker of toxic metabolic encephalopathy.??No seizures or epileptiform discharges seen. Physical exam is improving. CTH with noacute intracranial process, but MRI may help further evaluate presence hypoxic injury. Hemodynamic and respiratory status remain markedly improved; however, labs showing continued metabolic derangements. A repeat routine EEG may be helpful after these derangements improve to further characterize encephalopathy. However, neurological exam and her improvement in the neurological exam will guide us. Further workup may be considered if patient doesn't keep improving. Recommendations - MRI brain wo evidence of infarction, mass or mass effect - Routine EEG may be helpful once metabolic derangements improve - Neuro will sign off for now - please contact with additional questions or concerns ?? []??? Consult service will continue to follow patient. ? Shanell Cabrera, MS4 Neurology Attending ?? I saw and evaluated the patient with the neurology team. I have reviewed the resident's history during the visit and I agree with the details as written. My physical examination confirms the resident's findings. The assessment and plan were formulated in discussion with me at the time of the visit and I agree with them as documented. ?? Major issues addressed and plan: ?? History: The patient is a 62-year-old woman who following hip fracture appears to have had an acute cardiopulmonary insult with aspiration pneumonia and cardiogenic shock with low ejection fraction. She is now very slow to wake up often extubation and discontinuation of sedating drugs ?? Exam: Patient is on ventilator. She opens eyes but does not consistently blink to threat. She is startingto follow directions. She is moving all 4 extremities occasionally. Pupils are round and reactive. Corneal reflexes are present and doll's eye reflex is now present. Reflexes are hypoactive. There isno Babinski sign. She is starting to withdraw bilaterally ?? Data: EEG showed slowing. CT scan is unremarkable ?? Impression and plan: It seems most likely that she has sustained a significant hypoxic ischemic injury. She is showing some signs of improvement, with recovery of both cortical and brainstem dysfunction. Unremarkable MRIscan is reassuring. I would repeat an EEG in 48 hours. ? Tim Emmanuel MD [place] [address] Pager #[phone] Email: [email or web address] ?? * Plan of [facility], Carlos Reeves RN - 08/19/2022 4:50 PM EDT Peripherally Inserted Central Catheter (PICC) Teaching Sheet Peripherally inserted central catheters ([id number]) (PICC) are used when you need IV (intravenous) medicines and fluids. A catheter is a small flexible plastic tube. The catheter is put in througha vein under your skin. A vein is a tube inside your body that carries blood from the body to the heart. The catheter is usually put into a vein on the inside of your upper arm. Then it is threaded up this vein and ends in the blood vessel near your heart. The PICC catheter may be used for taking blood for laboratory tests. You may also get IV fluids andmedicines quickly and easily. Having the catheter may keep your arm from being stuck many times with a needle. The catheter will have 1-3 small tails (tubes) coming from your arm where the catheter was put in. Why do I need a PICC line or midline catheter? PICC lines are used for buttermilk drier operator treatments. PICC lines may be used for up to a year. They are often put in to give you IV medicines at home. You may need a PICC catheter because caregivers cannot use smaller veins in your body. Smaller veins may be damaged, or they may have poor blood flow. Catheters are also used in case of emergency when you would need medicines or fluids very quickly. The following are medicines and treatments you may get when you have a PICC line. ?? Antibiotics. These are medicines to prevent infection. ?? Frequent blood sample collection. ?? IV medicines that would make your smaller veins sore or damaged. ?? Receiving IV fluids for a long period of time. ?? Pain medicine. ?? Total Parenteral Nutrition: This is also called TPN. TPN is a special liquid food that goes directly into your veins. ?? Blood ?? Chemotherapy (Medicine for cancer) What are the benefits of having a PICC line put in? Having a PICC line may keep your arm from being stuck many times with a needle to draw blood or start an IV (intravenous catheter) . Through a PICC catheter, you may have blood taken for tests. You may also get IV fluids and medicines quickly and easily. Small veins can be damaged or irritated by certain drugs or nutritional solutions. A PICC line helps to decrease vein irritation from antibiotics, IV pain drugs, or IV cancer drugs. A PICC line can be left in place when you go home. If you go home with a PICC line in place, home care can be set up via the nurse Deck Engine Operator to help you. What are possible complications of having a PICC line put in? Some possible complications are: bruising, swelling, or infection in the arm with the PICC line mal-positioned catheter (catheter tip in wrong place) occlusion (blocked catheter) mechanical phlebitis (vein irritation) and thrombosis (clot) Your doctor is the person you should talk to if you have questions about what would happen if you do not choose to have a PICC line put in. Your doctor can talk to you about other choices you may have. What should I expect when it is put in? A written consent that gives your ok to have it put in needs to be signed after you understand thatyou are going to have a PICC put in, and all your questions about the procedure have been answered to your satisfaction. This is a safety feature that the hospital practices before doing procedures. An experienced nurse who has been through special training and education will be putting this catheter in. The procedure is done in a specially equipped room in Interventional Radiology on the third floor. The PICC nurse will first talk to you about any questions that you may have. The PICC nurse will explain to you what is going to be done before starting. Once you arrive in the procedure room in Interventional Radiology, the PICC nurse will then set up for the procedure. She will unwrap the sterile kit and open the needed supplies. A gown and mask andgloves will be worn while putting it in. An ultrasound machine will be used to help guide the catheter in the right place. This machine uses a handle with sound waves to find the vein. The area on your arm where the catheter will be put in is then numbed with a medicine put under your skin with a tiny needle. The nurse will then put in the catheter using fluoroscopy (a type of x-ray) as a guide. Once the catheter is in your vein, it will be threaded up your arm to the area beforeyour heart. While it is being threaded, you may be asked to turn your head. When the catheter is in, the nurse will place a small dressing on the site along with a little hughes which will help keep the catheter in place. After the procedure is done, a radiologist (doctor in x-ray department) will look at your x-ray to make sure that the end of the catheter is in proper position to give your fluids and/or medications. What should I expect in the care of my PICC? A dressing that is specially made to prevent infections will be put on. After this, the dressing will only be changed once a week unless it needs it sooner. If you go home with the catheter in, you may take a shower as long as you keep the site dry. You can do this by wearing a specially fitted PICC protector that will be provided to you before dischargefrom the hospital. The dressing at the site must be kept clean and dry. It is important that you watch for signs of infection at the site. Your healthcare provider should be notified if these occur: Redness Swelling Pus Pain at the site Other reasons to notify your healthcare provider are: Catheter becomes partially or totally removed Unable to infuse medication/fluid Unable to draw back blood from the catheter. This may be an early sign that a clot is forming on the end of the catheter. If this occurs, a medicine called Cathflo may be used to dissolve this clot. Ask the PICC nurse or your doctor, any questions you may have so you feel secure in consenting to having a PICC line. References: Vascular Access Device Selection, Insertion, and Management, [employer] 02/11. A Review of the Efficacy, Safety, Use, and Administration of Cathflo, [employer] 2005 * Consult Note - Tim Emmanuel MD - 08/19/2022 7:02 AM EDT Neurology Consultation Patient name: Ishan Irving Date of : 1960 PCP: Chris Stanley APRN CC: Somnolence We have been asked to see Ishan Irving by Niurka Ayala HPI: Ishan Irving is a 62 y.o. female with PMHx of bipolar disorder, etOH, DM, esophagitis who presented to OSH 3 days ago after being found unresponsive at home. Pt found to have likely pneumonia+/- aspiration, newly reduced EF. Pt was at baseline functioning before this episode. History limited due to patient's mental status;additional history obtained from at bedside. Pt apparently fell on August 08 - had a clear break through the femoral head; she subsequently underwent orthopedic fixation with three screws and was sent home on WednesdayAugust 10. Pt was apparently doing well for the first two days postop, walking around the house with a walker, and had full cognition intact. However, pt and her went to sleep Wednesday night and he found her to be unresponsive on Wednesday morning. According to , she had taken one 5 mg dose of oxycodone for pain before bed. She was given narcan in the field with a slight improvement in mental status, however, no improvement with additional doses. At outside hospital she was found to have severe pneumonia (aspiration vs viral vs CAP) complicated by severley depressed LVEF (~25%). Her respiratory status worsened requiring intubation, sedation and pressor support, and she was transferred to [facility] on 08/14/22. Over the course of several days she had improvements in respiratory and hemodynamic status, and she wasweaned off of pressors and sedation. By 08/18, she had been off of sedation for 24 hours and remained unresponsive, at which point neurology was consulted. Initial workup included EEG and CTH. 24h events: - Pt now opening eyes and blinking - Still not following commands but does have some spontaneous movements of the arms and legs. - Hemodynamic status and respiratory status continuing to improve - routine EEG with triphasic spikes and generalized delta slowing - CTH with no acute intracranial process - C diff sent today Past Medical History: Past Medical History: Diagnosis Date ??? Bipolar disorder 02/12/2022 Medications: Current Outpatient Medications Medication Instructions ??? Blood Sugar Diagnostic (ONETOUCH ULTRA TEST) Strip 1 each, Other, 3 TIMES DAILY, by Other route. 1 box = 100 test strips; 3 boxes = 300 test strips. ??? Blood-Glucose Meter (ONETOUCH ULTRA2) Kit by Other route. 1 = one blood glucose meter kit. ??? divalproex EC (DEPAKOTE) 500 mg, Oral, 2 TIMES DAILY ??? HumuLIN N NPH Insulin KwikPen 20 Units, Subcutaneous, DAILY ??? insulin aspart U-100 (NOVOLOG FLEXPEN U-100 INSULIN) 10-20 Units, Subcutaneous, 3 TIMES DAILY BEFORE MEALS, Refer to correction factor scale for dosing. ??? Insulin Sidney, Disposable, (BD INSULIN PEN NEEDLE UF MINI) 31 x 3/16 Needle 1 Device, Misc.(Non-Drug; Combo Route), 3 TIMES DAILY PRN ??? lancets (ONE TOUCH DELICA) 33 gauge Misc 1 each, Other, 3 TIMES DAILY, by Other route. 1 box = 100 test strips; 3 boxes = 300 test strips. ??? pantoprazole EC (PROTONIX) 40 mg, Oral, 2 TIMES DAILY ??? QUEtiapine (SEROQUEL) 50 mg, Oral, DAILY ??? sucralfate (CARAFATE) 1 g, Oral, 4 TIMES DAILY Allergy: Allergies Allergen Reactions ??? Meperidine Hcl CIS - violently ill ??? Metformin Other (See Comments) Severe diarrhea Family History: No family history on file. Social History: Social History Social History Narrative ??? Not on file Review of systems: Unable to assess d/t mental status Physical Exam: Patient Vitals for the past 24 hrs: Temp Pulse Resp BP SpO2 FiO2 (%) O2 Device 08/18/22 1600 37.7 ??C (99.9 ??F) (Abnormal) 112 24 no documentation no documentation 30 % Ventilator 08/18/22 1800 37.8 ??C (100 ??F) (Abnormal) 109 21 no documentation 99 % 30 % Ventilator 08/18/22 1900 no documentation no documentation 22 no documentation 96 % no documentation no documentation 08/18/22 2000 37.8 ??C (100 ??F) (Abnormal) 117 23 no documentation 96 % 30 % Ventilator 08/18/22 2012 no documentation (Abnormal) 110 no documentation 110/57 no documentation no documentation no documentation 08/18/22 2100 37.8 ??C (100 ??F) 82 21 no documentation 98 % no documentation no documentation 08/18/22 2102 37.8 ??C (100 ??F) 90 no documentation no documentation 98 % no documentation no documentation 08/18/22 2200 37.8 ??C (100 ??F) (Abnormal) 105 22 no documentation 96 % 30 % Ventilator 08/18/22 2300 37.8 ??C (100 ??F) (Abnormal) 107 23 no documentation 96 % no documentation no documentation 08/19/22 0004 37.8 ??C (100 ??F) (Abnormal) 106 21 no documentation 97 % 30 % Ventilator 08/19/22 0142 no documentation no documentation 24 no documentation 97 % no documentation no documentation 08/19/22 0200 37.9 ??C (100.2 ??F) (Abnormal) 107 25 no documentation 96 % 30 % Ventilator 08/19/22 0400 37.7 ??C (99.9 ??F) (Abnormal) 102 25 no documentation 97 % 30 % Ventilator 08/19/22 0500 37.8 ??C (100 ??F) (Abnormal) 112 21 no documentation 97 % no documentation no documentation 08/19/22 0600 37.8 ??C (100 ??F) (Abnormal) 114 28 no documentation 96 % 30 % Ventilator 08/19/22 0733 no documentation no documentation 29 no documentation 98 % no documentation no documentation 08/19/22 0800 37.9 ??C (100.2 ??F) (Abnormal) 110 27 no documentation 97 % 30 % Ventilator 08/19/22 1000 37.8 ??C (100 ??F) (Abnormal) 115 (Abnormal) 31 no documentation 94 % 30 % Ventilator 08/19/22 1135 (Abnormal) 38.1 ??C (100.6 ??F) (Abnormal) 112 (Abnormal) 33 no documentation 94 % nodocumentation no documentation 08/19/22 1136 37.6 ??C (99.6 ??F) no documentation no documentation no documentation no documentation no documentation no documentation 08/19/22 1143 (Abnormal) 38.2 ??C (100.8 ??F) (Abnormal) 113 30 no documentation 100 % no documentation no documentation 08/19/22 1200 (Abnormal) 38.1 ??C (100.6 ??F) (Abnormal) 116 30 no documentation 96 % 30 % Ventilator 08/19/22 1233 no documentation no documentation 30 no documentation 92 % no documentation no documentation 08/19/22 1400 (Abnormal) 38.1 ??C (100.6 ??F) 100 22 no documentation 100 % 30 % Ventilator HEENT: On vent Abd: soft, nontender, nondistended Ext: no edema, adequate pulses Neuro exam: MSE: unable to arouse, not responsive to noxious stimuli CN: Pupils equal, round, reactive to light and accommodation; unable to evaluate full CN function due to mental status Motor: Unable to assess strength; some spontaneous movements noted Reflexes Areflexic bilat biceps, brachioradialis, trace triceps reflex intact Areflexic bilat patella, achilles VOR absent Corneal and pupillary reflexes intact Sensation: Unable to assess due to mental status Coordination: Deferred Gait: Deferred Labs: Recent Results (from the past 24 hour(s)) POCT Glucose Result Value Ref Range POC Glucose 207 (H) 65 - 199 mg/dL POCT Glucose Result Value Ref Range POC Glucose 166 65 - 199 mg/dL POCT Glucose Result Value Ref Range POC Glucose 175 65 - 199 mg/dL POCT Glucose Result Value Ref Range POC Glucose 144 65 - 199 mg/dL POCT Glucose Result Value Ref Range POC Glucose 148 65 - 199 mg/dL POCT Glucose Result Value Ref Range POC Glucose 171 65 - 199 mg/dL POCT Glucose Result Value Ref Range POC Glucose 169 65 - 199 mg/dL Magnesium Result Value Ref Range Magnesium 0.83 0.69 - 1.07 mmol/L Phosphorus Result Value Ref Range Phosphorus 1.4 (CRIT) 2.5 - 4.5 mg/dL Basic Metabolic Panel (non-fasting) Result Value Ref Range Glucose Lvl 187 65 - 199 mg/dL BUN 18 8 - 18 mg/dL Creatinine 0.50 (L) 0.70 - 1.20 mg/dL Sodium 142 135 - 145 mmol/L Potassium 3.8 3.5 - 5.0 mmol/L Chloride 108 (H) 98 - 107 mmol/L CO2 25 22 - 31 mmol/L Anion Gap 9 5 - 15 mmol/L Calcium 8.4 (L) 8.5 - 10.5 mg/dL Estimated GFR 106 >=60 mL/min/1.73 m?? Hemogram Result Value Ref Range WBC 28.3 (H) 4.0 - 9.5 x10(3)/mcL RBC 4.35 4.00 - 5.21 x10(6)/mcL Hemoglobin 8.7 (L) 11.7 - 15.5 g/dL Hematocrit 27.9 (L) 35.7 - 45.8 % MCV 64.1 (L) 82.6 - 94.4 fL MCH 20.0 (L) 27.1 - 32.0 pg MCHC 31.2 (L) 31.7 - 35.0 g/dL Platelets 301 145 - 357 x10(3)/mcL RDWSD 63.6 (H) 37.0 - 46.0 fL RDWCV 29.2 (H) 11.5 - 14.1 % MPV Not Measured 7.6 - 12.9 fL nRBC % Auto 1.0 % nRBC Abs Auto 0.290 (H) 0.000 - 0.000 x10(3)/mcL Differential, Automated Result Value Ref Range Neutrophils % 68.0 % Neutr Abs (ANC) 19.24 (H) 1.70 - 6.10 x10(3)/mcL Lymphocytes % 10.4 % Lymphocytes Abs 2.9 0.9 - 3.2 x10(3)/mcL Monocytes % 8.1 % Monocyte Abs 2.3 (H) 0.3 - 0.9 x10(3)/mcL Eosinophils % 0.4 % Eosinophils Abs 0.1 0.0 - 0.4 x10(3)/mcL Basophils % 0.6 % Basophils Abs 0.2 (H) 0.0 - 0.1 x10(3)/mcL Immature Gran % 12.50 % [place]z Gran Abs 3.52 (H) 0.00 - 0.04 x10(3)/mcL CK Result Value Ref Range CK, Total 32 0 - 160 unit/L POCT Glucose Result Value Ref Range POC Glucose 176 65 - 199 mg/dL BLOOD GAS 2 ARTERIAL Result Value Ref Range pH Art 7.54 (H) 7.35 - 7.45 pCO2 Art 31 (L) 35 - 45 mmHg pO2 Art 73 (L) 85 - 104 mmHg HCO3 Art 25.7 20.0 - 26.0 mmol/L BE Art 3.1 (H) -3.0 - 3.0 mmol/L Hgb Blood Gas 9.3 (L) 11.7 - 15.5 g/dL O2HB Art 94.1 94.0 - 97.0 % COHB Art 0.2 % METHB Art 0.9 <=1.5 % Na Whole Blood 142 135 - 145 mmol/L K Whole Blood 3.7 3.5 - 5.0 mmol/L ICa Whole Blood 1.14 (L) 1.15 - 1.33 mmol/L CL Whole Blood 111 (H) 98 - 107 mmol/L Gluc Whole Bld 178 65 - 199 mg/dL Lactate WB 1.2 0.5 - 2.2 mmol/L FIO2 Art 30 % PF Ratio Art 243 POCT Glucose Result Value Ref Range POC Glucose 215 (H) 65 - 199 mg/dL POCT Glucose Result Value Ref Range POC Glucose 229 (H) 65 - 199 mg/dL POCT Glucose Result Value Ref Range POC Glucose 189 65 - 199 mg/dL POCT Glucose Result Value Ref Range POC Glucose 186 65 - 199 mg/dL Basic Metabolic Panel (non-fasting) Result Value Ref Range Glucose Lvl 224 (H) 65 - 199 mg/dL BUN 20 (H) 8 - 18 mg/dL Creatinine 0.59 (L) 0.70 - 1.20 mg/dL Sodium 145 135 - 145 mmol/L Potassium 4.1 3.5 - 5.0 mmol/L Chloride 106 98 - 107 mmol/L CO2 29 22 - 31 mmol/L Anion Gap 10 5 - 15 mmol/L Calcium 8.6 8.5 - 10.5 mg/dL Estimated GFR 102 >=60 mL/min/1.73 m?? Phosphorus Result Value Ref Range Phosphorus 2.9 2.5 - 4.5 mg/dL Lactate, whole blood, send to lab ([facility] Result Value Ref Range Lactate WB 1.6 0.5 - 2.2 mmol/L POCT Glucose Result Value Ref Range POC Glucose 177 65 - 199 mg/dL Diagnostic Tests and Imaging: CT head from 08/16/22 IMPRESSION No acute intracranial abnormality and no change from prior Assessment and plan: Pt is a 62 y/o female with hx of bipolar, etOH, who presented to OSH 08/12 after being found unresponsive by her . She was found to have severe bilateral pneumonia; aspiration vs viral, vs CAP. This is complicated by newly reduced EF. This could be consistent with stress cardiomyopathy or NSTEMI. Now she is slow to emerge from sedation (off of fentanyl and propofol for more than 24 hours) and has increased secretions. Routine EEG showed continuous generalized delta slowing and generalized periodic discharges with triphasic morphology which are not epileptiform in nature and are likely a marker of toxic metabolic encephalopathy.??No seizures or epileptiform discharges seen. Physical exam is improving. CTH with noacute intracranial process, but MRI may help further evaluate presence hypoxic injury. Hemodynamic and respiratory status remain markedly improved; however, labs showing continued metabolic derangements. A repeat routine EEG may be helpful after these derangements improve to further characterize encephalopathy. However, neurological exam and her improvement in the neurological exam will guide us. Further workup may be considered if patient doesn't keep improving. Recommendations - May consider MRI with and without contrast to evaluate other causes such as hypoxic brain injury,not urgent - Routine EEG may be helpful once metabolic derangements improve ?? [x]??? Consult service will continue to follow patient. ? Shanell Cabrera, MS4 ?? Yvan Bianchi MD PGY3 Neurology Neurology Attending I saw and evaluated the patient with the neurology team. I have reviewed the resident's history during the visit and I agree with the details as written. My physical examination confirms the resident's findings. The assessment and plan were formulated in discussion with me at the time of the visit and I agree with them as documented. Major issues addressed and plan: History: The patient is a 62-year-old woman who following hip fracture appears to have had an acute cardiopulmonary insult with aspiration pneumonia and cardiogenic shock with low ejection fraction. She is now very slow to wake up often extubation and discontinuation of sedating drugs Exam: Patient is on ventilator. She opens eyes but does not consistently blink to threat. She does not follow directions. She is moving all 4 extremities occasionally. Pupils are round and reactive. Corneal reflexes are present but doll's eye reflex is not. Reflexes are hypoactive. There is no Babinski sign. There are noes sensory withdrawal responses. Data: EEG showed slowing. CT scan is unremarkable Impression and plan: It seems most likely that she has sustained a significant hypoxic ischemic injury. She is showing some signs of improvement, but at present has both cortical and brainstem dysfunction. When she is medically stable it would be desirable to obtain an MRI scan to see whether there is objective evidence of hypoxic ischemic injury. I would repeat an EEG in 48 hours. Tim Emmanuel MD [place] [address] Pager #[phone] Email: [email or web address] Consult Note - Nichelle Barrett MD - 08/18/2022 12:32 PM EDT Neurology Consultation Patient name: Ishan Irving Date of : 1960 PCP: Chris Stanley APRN CC: Somnolence We have been asked to see Ishan Irving by Niurka Ayala HPI: Ishan Irving is a 62 y.o. female with PMHx of bipolar disorder, etOH, DM, esophagitis who presented to OSH 3 days ago after being found unresponsive at home. Pt found to have likely pneumonia+/- aspiration, newly reduced EF. Pt was at baseline functioning before this episode. History limited due to patient's mental status. 24h events: - pt not waking up off sedation for ~ 24 hrs (propofol x fentanyl) - not responsive on exam Past Medical History: Past Medical History: Diagnosis Date ??? Bipolar disorder 02/12/2022 Medications: Current Outpatient Medications Medication Instructions ??? Blood Sugar Diagnostic (ONETOUCH ULTRA TEST) Strip 1 each, Other, 3 TIMES DAILY, by Other route. 1 box = 100 test strips; 3 boxes = 300 test strips. ??? Blood-Glucose Meter (ONETOUCH ULTRA2) Kit by Other route. 1 = one blood glucose meter kit. ??? divalproex EC (DEPAKOTE) 500 mg, Oral, 2 TIMES DAILY ??? HumuLIN N NPH Insulin KwikPen 20 Units, Subcutaneous, DAILY ??? insulin aspart U-100 (NOVOLOG FLEXPEN U-100 INSULIN) 10-20 Units, Subcutaneous, 3 TIMES DAILY BEFORE MEALS, Refer to correction factor scale for dosing. ??? Insulin Sidney, Disposable, (BD INSULIN PEN NEEDLE UF MINI) 31 x 3/16 Needle 1 Device, Misc.(Non-Drug; Combo Route), 3 TIMES DAILY PRN ??? lancets (ONE TOUCH DELICA) 33 gauge Misc 1 each, Other, 3 TIMES DAILY, by Other route. 1 box = 100 test strips; 3 boxes = 300 test strips. ??? pantoprazole EC (PROTONIX) 40 mg, Oral, 2 TIMES DAILY ??? QUEtiapine (SEROQUEL) 50 mg, Oral, DAILY ??? sucralfate (CARAFATE) 1 g, Oral, 4 TIMES DAILY Allergy: Allergies Allergen Reactions ??? Meperidine Hcl CIS - violently ill ??? Metformin Other (See Comments) Severe diarrhea Family History: No family history on file. Social History: Social History Social History Narrative ??? Not on file Review of systems: Unable to assess d/t mental status Physical Exam: Patient Vitals for the past 24 hrs: Temp Heart Rate From SP02 Pulse Resp BP SpO2 FiO2 (%) O2 Device 08/17/22 1300 36.7 ??C (98.1 ??F) 93 bpm 93 10 no documentation 98 % no documentation no documentation 08/17/22 1354 no documentation no documentation no documentation 22 no documentation 100 % no documentation no documentation 08/17/22 1400 36.8 ??C (98.2 ??F) (Abnormal) 104 bpm (Abnormal) 104 13 no documentation 98 % 30 % Ventilator 08/17/22 1423 36.9 ??C (98.4 ??F) 94 bpm (Abnormal) 107 16 no documentation 98 % no documentation no documentation 08/17/22 1500 37 ??C (98.6 ??F) (Abnormal) 107 bpm (Abnormal) 106 17 no documentation 100 % no documentation no documentation 08/17/22 1510 37 ??C (98.6 ??F) (Abnormal) 103 bpm (Abnormal) 101 17 no documentation 99 % no documentation no documentation 08/17/22 1600 37.2 ??C (99 ??F) (Abnormal) 108 bpm (Abnormal) 108 19 no documentation 95 % 30 % Ventilator 08/17/22 1700 37.2 ??C (99 ??F) no documentation (Abnormal) 108 19 no documentation 99 % no documentation no documentation 08/17/22 1800 37.3 ??C (99.1 ??F) no documentation (Abnormal) 106 19 no documentation 99 % 30 % Ventilator 08/17/22 1840 37.3 ??C (99.1 ??F) no documentation (Abnormal) 117 23 113/62 94 % no documentation no documentation 08/17/22 1900 37.3 ??C (99.1 ??F) no documentation (Abnormal) 106 24 no documentation 96 % no documentation no documentation 08/17/22 2000 37.3 ??C (99.1 ??F) no documentation (Abnormal) 105 22 no documentation 97 % 30 % Ventilator 08/17/22 2200 37.3 ??C (99.1 ??F) no documentation (Abnormal) 111 22 no documentation 97 % 30 % Ventilator 08/17/22 2304 37.4 ??C (99.3 ??F) no documentation (Abnormal) 105 22 no documentation 97 % no documentation Ventilator 08/18/22 0000 37.4 ??C (99.3 ??F) no documentation (Abnormal) 108 24 no documentation 96 % 30 % Ventilator 08/18/22 0200 37.6 ??C (99.7 ??F) no documentation (Abnormal) 102 23 no documentation 98 % 30 % Ventilator 08/18/22 0213 no documentation no documentation no documentation 22 no documentation 97 % no documentation no documentation 08/18/22 0400 37.5 ??C (99.5 ??F) no documentation (Abnormal) 109 23 no documentation 100 % 30 % Ventilator 08/18/22 0600 37.3 ??C (99.1 ??F) no documentation (Abnormal) 116 28 no documentation 93 % 30 % Ventilator 08/18/22 0728 no documentation no documentation no documentation 25 no documentation 100 % no documentation no documentation 08/18/22 0800 37.5 ??C (99.5 ??F) no documentation 100 22 no documentation 99 % 30 % Ventilator 08/18/22 1000 37.4 ??C (99.3 ??F) no documentation (Abnormal) 108 23 no documentation 100 % 30 % Ventilator 08/18/22 1200 37.5 ??C (99.5 ??F) no documentation (Abnormal) 104 22 no documentation no documentation 30 % Ventilator HEENT: On vent Abd: soft, nontender, nondistended Ext: no edema, adequate pulses Neuro exam: MSE: unable to arouse, not responsive to noxious stimuli CN: Pupils equal, round, reactive to light and accommodation; unable to assess due to mental status Motor: Unable to assess strength; some spontaneous movements Reflexes Areflexic bilat biceps, brachioradialis, triceps Areflexic bilat patella, achilles downgoing toes bilaterally Sensation: Unable to assess due to mental status Coordination: Deferred Gait: Deferred Labs: Recent Results (from the past 24 hour(s)) POCT Glucose Result Value Ref Range POC Glucose 130 65 - 199 mg/dL POCT Glucose Result Value Ref Range POC Glucose 140 65 - 199 mg/dL Vancomycin Level, Random Result Value Ref Range Vanco Lvl 6-14 hr Post 19.2 mg/L Potassium Result Value Ref Range Potassium 3.6 3.5 - 5.0 mmol/L POCT Glucose Result Value Ref Range POC Glucose 195 65 - 199 mg/dL POCT Glucose Result Value Ref Range POC Glucose 189 65 - 199 mg/dL POCT Glucose Result Value Ref Range POC Glucose 169 65 - 199 mg/dL POCT Glucose Result Value Ref Range POC Glucose 161 65 - 199 mg/dL Potassium Result Value Ref Range Potassium 3.5 3.5 - 5.0 mmol/L POCT Glucose Result Value Ref Range POC Glucose 188 65 - 199 mg/dL POCT Glucose Result Value Ref Range POC Glucose 168 65 - 199 mg/dL Magnesium Result Value Ref Range Magnesium 1.02 0.69 - 1.07 mmol/L Phosphorus Result Value Ref Range Phosphorus 1.2 (CRIT) 2.5 - 4.5 mg/dL Basic Metabolic Panel (non-fasting) Result Value Ref Range Glucose Lvl 178 65 - 199 mg/dL BUN 25 (H) 8 - 18 mg/dL Creatinine 0.67 (L) 0.70 - 1.20 mg/dL Sodium 139 135 - 145 mmol/L Potassium 4.2 3.5 - 5.0 mmol/L Chloride 104 98 - 107 mmol/L CO2 25 22 - 31 mmol/L Anion Gap 10 5 - 15 mmol/L Calcium 8.4 (L) 8.5 - 10.5 mg/dL Estimated GFR 99 >=60 mL/min/1.73 m?? Hemogram Result Value Ref Range WBC 24.3 (H) 4.0 - 9.5 x10(3)/mcL RBC 4.39 4.00 - 5.21 x10(6)/mcL Hemoglobin 9.0 (L) 11.7 - 15.5 g/dL Hematocrit 28.2 (L) 35.7 - 45.8 % MCV 64.2 (L) 82.6 - 94.4 fL MCH 20.5 (L) 27.1 - 32.0 pg MCHC 31.9 31.7 - 35.0 g/dL Platelets 226 145 - 357 x10(3)/mcL RDWSD 63.0 (H) 37.0 - 46.0 fL RDWCV 29.1 (H) 11.5 - 14.1 % MPV Not Measured 7.6 - 12.9 fL nRBC % Auto 0.2 % nRBC Abs Auto 0.050 (H) 0.000 - 0.000 x10(3)/mcL Differential, Automated Result Value Ref Range Neutrophils % 69.7 % Neutr Abs (ANC) 16.91 (H) 1.70 - 6.10 x10(3)/mcL Lymphocytes % 8.7 % Lymphocytes Abs 2.1 0.9 - 3.2 x10(3)/mcL Monocytes % 8.4 % Monocyte Abs 2.0 (H) 0.3 - 0.9 x10(3)/mcL Eosinophils % 0.5 % Eosinophils Abs 0.1 0.0 - 0.4 x10(3)/mcL Basophils % 0.7 % Basophils Abs 0.2 (H) 0.0 - 0.1 x10(3)/mcL Immature Gran % 12.00 % Almaz Gran Abs 2.90 (H) 0.00 - 0.04 x10(3)/mcL Scan, Peripheral Blood Result Value Ref Range Plat Estimate Normal RBC Morphology Abnormal Microcytes 6-10 /HPF Hypochromia Moderate Ovalocytes 1-5 /HPF Randolph Cells 6-10 /HPF Giant Platelets Less than 1 /HPF POCT Glucose Result Value Ref Range POC Glucose 176 65 - 199 mg/dL BLOOD GAS 2 ARTERIAL Result Value Ref Range pH Art 7.51 (H) 7.35 - 7.45 pCO2 Art 30 (L) 35 - 45 mmHg pO2 Art 62 (L) 85 - 104 mmHg HCO3 Art 23.2 20.0 - 26.0 mmol/L BE Art 0.2 -3.0 - 3.0 mmol/L Hgb Blood Gas 10.2 (L) 11.7 - 15.5 g/dL O2HB Art 91.5 (L) 94.0 - 97.0 % COHB Art 0.5 % METHB Art 0.7 <=1.5 % Na Whole Blood 136 135 - 145 mmol/L K Whole Blood 3.7 3.5 - 5.0 mmol/L ICa Whole Blood 1.16 1.15 - 1.33 mmol/L CL Whole Blood 104 98 - 107 mmol/L Gluc Whole Bld 219 (H) 65 - 199 mg/dL Lactate WB 1.6 0.5 - 2.2 mmol/L FIO2 Art 30 % PF Ratio Art 207 POCT Glucose Result Value Ref Range POC Glucose 175 65 - 199 mg/dL POCT Glucose Result Value Ref Range POC Glucose 121 65 - 199 mg/dL POCT Glucose Result Value Ref Range POC Glucose 113 65 - 199 mg/dL POCT Glucose Result Value Ref Range POC Glucose 129 65 - 199 mg/dL Diagnostic Tests and Imaging: CT head from 08/16/22 IMPRESSION No acute intracranial abnormality and no change from prior Assessment and plan: Pt is a 62 y/o female with hx of bipolar, etOH, who presented to OSH 08/12 after being found unresponsive by her . She was found to have pneumonia- possibilities include aspiration, viral, vs CAP. This is complicated by newly reduced EF. This could be consistent with stress cardiomyopathy or NSTEMI. Now she is slow to emerge from sedation (off of fentanyl and propofol x 24 hours) and has increased secretions. Pt is on antibiotics for presumed pneunomia and enteral feeds underway. Routine EEG showing continuous generalized delta slowing, and generalized periodic discharges with triphasic morphology which are not epileptiform in nature and are a marker of toxic metabolic encephalopathy.??No seizures or epileptiform discharges seen. Pending full report. Etiology is likely a toxic metabolic encephalopathy complicated by cardiogenic shock. Recommend - CT head for updated imaging - MRI pending CT results ?? ATTENDING NOTE: I reviewed the pertinent aspects of the history and overnight events with the team and the patient and agree with the history as outlined in the resident's note. I repeated the pertinent aspects of the physical examination and agree with it as documented in the resident's note. I reviewed the impression and plan with the resident and agree with it as documented. Nichelle Barrett MD Associate Prof Neurol Neuromuscular Medicine & Clinical Neurophysiology * Consult Note - Veena King, [facility] - 08/18/2022 9:59 AM EDT ?? The pharmacist-managed vancomycin consult service will sign-off and vancomycin therapy, if it isto be continued, must be ordered by the responsible prescriber. ?? Pharmacists??? therapeutic drug monitoring will continue for patients receiving vancomycin. Should specific assistance be needed regarding re- initation or continuation of vancomycin therapy, please page the care area pharmacist with any questions you may have. Alternately, during off-hours you niurka hallman call [phone] to contact a pharmacist. * Consult Note - Lorene Michelle [facility] - 08/17/2022 4:53 PM EDT [facility] Pharmacokinetics Note Drug: Vancomycin Pharmacokinetic target: AUC24 (range) 400-600 mg/L.hr Current regimen: 750 mg IV every 24 hours Ishan Irving is a(n) 62 years old female receiving Vancomycin 750 mg IV every 24 hours for pneumonia Recent measured serum creatinine values: 08/17/2022 00:45 1.1 mg/dL 08/16/2022 18:00 1.15 mg/dL 08/16/2022 03:36 1.42 mg/dL Assessment: Analysis of the most recent level(s) using [employer] gives the following patient-specific pharmacokinetic parameters: CL: 1.86 L/hr V: 44.2 L T1/2: 19.4 hours Using these values, the current regimen of Vancomycin 750 mg IV every 24 hours is predicted to result in a steady-state trough of 12 mg/L and AUC24 of 407 mg/L.hr. At this time we recommend a regimenof 1000 mg IV every 24 hours, which is predicted to result in a steady-state trough of 15.9 mg/L and AUC24 of 534 mg/L.hr. Recommendations: - Vancomycin 1000 mg IV every 24 hours - Obtain Vancomycin level with morning labs on 08/19/22 - Continue to monitor serum creatinine Lorene Michelle * Initial Assessments - Moustapha Jacobsen RN - 08/17/2022 3:06 PM EDT Office of Care Management Initial Assessment Moustapha Jacobsen RN reviewed record and discussed patient with Care Team. Source of Information: Team, bedside nurse, medical record, and Spouse, Chart Review. Introduced self/reviewed role; services accepted. Reason for Hospitalization: shock Covid Vaccination Status: 1st, 2nd & booster (spouse reports that pt has been vaccinated and boosted x 3) Last COVID test: Lab Results Component Value Date [id number] Not Detected 08/15/2022 Past medical History: Past Medical History: Diagnosis Date ??? Bipolar disorder 02/12/2022 Hospitalizations Within the Past 30 Days: no previous admission in last 30 days Current Decision-Making Capacity: Other (spouse is decision maker based on surrogacy; no AD in place) If AD's have not been completed the following surrogate would be surrogate decision maker per [place] decision making law. (Only good for 180 days) Any patient receiving care in [place] must abide by [place] law. The hierarchy for surrogate decision making is: (a) Patient???s spouse, or civil union partner or common law spouse unless there is a divorce proceeding, separation agreement, or restraining order limiting that person???s relationship with the patient. (b) Any adult son or daughter of the patient. (c) Either parent of the patient. (d) Any adult brother or sister of the patient. (e) Any adult grandchild of the patient. (f) Any grandparent of the patient. (g) Any adult aunt, uncle, niece, or nephew of the patient. (h) A close friend of the patient. (i) The agent with financial power of tax associate attorney or a conservator appointed in accordance with RSA 464-A. (j) The guardian of the patient???s estate. Advance Care Planning: Attempt Cardiopulmonary Resuscitation - Inpatient <no information> -Advanced Directive: No, need to discuss Current Coping/Education/Information Needs: follow for needs Current Functional Ability: Completely Dependent (intubated) Functional Status Prior to Admission: Independent (was using a walker per spouse for her post hip surgery recovery) Prior ADLs & IADLs: Independent with all ADLs & IADLs Home Environment: Others in the home: spouse, pet(s) (dog). Current Living Arrangements: home/apartment/condo. Accessibility Concerns:one level and BM; 3 steps to enter. Resource / Environmental Concerns: Resource/Environmental Concerns: none Current DME: walker - rolling (for hip recovery) Home Address confirmed as: [address] [facility] [id number] Social & Family Supports: All names listed below confirmed with patient as current and correct Extended Emergency Contact Information Primary Emergency Contact: Antonio Irving Mobile Relation: Spouse Current Care Provided by: self Provides Primary Care For: spouse Caregiver if needed: spouse, child(laura), adult Quality of Family relationships: helpful, involved, supportive Community Resources being provided currently: none Behavioral Health History: bipolar per spouse; states she takes depakote and seraquil qd Substance Use/Abuse confirmed: Social History Tobacco Use Smoking Status Former ??? Years: 11.00 ??? Types: Cigarettes ??? Quit date: 02/26/2021 ??? 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 Health/Prescription Coverage: Primary Insurance: [place] Payor: [place] / Plan: [place] PRIMARY CARE PLUS / Product Type: *No Product type* / Secondary Insurance: N/A ; Prescription Coverage: Yes Preferred Pharmacy: [facility] [address] [place] Status: Patient is a : No Primary Care Provider confirmed: Chris Stanley APRN [phone] Patient/Caregiver Goals of Treatment: to be determined based on hospital course Potential Needs for Transition of Care: other (see comments) (TBD) Agency Referrals: TBD Transportation: other (see comments) (TBD) Transportation Anticipated: other (see comments) (TBD based on course) Concerns to be Addressed: discharge planning Assessment: Patient is admitted to Cardiology service for Shock Plan: To be determined by hospital course. A member of the Care Management team will continue to monitor progress, follow for continuity of care and assist with transition of care planning. Moustapha Dessaint RN * Consult Note - Tapan Hastings RPH - 08/15/2022 1:05 AM EDT Clinical Pharmacist Note - VancFD Ishan Irving [id number] Ishan Irving is a 62 y.o. female who is starting antibiotic therapy which includes intravenous vancomycin. Based on a review of the patient???s chart and/or conversation with the patient???s providers vancomycin is being used for empiric coverage of septic shock with a targeted goal of 15 -20 mcg/mL. The following Pharmacokinetic data has been evaluated: Wt Readings from Last 1 Encounters: 08/14/22 69 kg (152 lb 1.9 oz) Ht Readings from Last 1 Encounters: 08/14/22 152.4 cm (5') Labs: Creatinine clearance: Creatinine (mg/dL) Date Value 08/14/2022 1.40 (H) Dosing recommendations: ??? Patient previously on vanco from OSH. Potentially discontinued this AM. Random level 12.1. Probable MARILIN. Will give vancomycin 1000 mg IV x1 and follow with intermittent dosing. No levels scheduled at this time. ??? A full dosing regimen will be ordered upon complete pharmacist consultation to follow. We will continue to monitor the patient as long as she remains on vancomycin therapy. Thank you forthis consult and please page the care area pharmacist with any questions you may have. Alternately,during off-hours (9p-) you may call [phone] to contact a pharmacist. Tapan Hastings RPH documented in this encounter Plan of Treatment Upcoming Encounters Date Type Department Care Team (Late st Contact Info) Description 03/10/2024 4:00 PM EDT Office Visit Cardiology at [address] [phone] Milagros Hernanedz MD [facility] [place] [address] Pending Results Name Type Priority Associated Diagnoses Date /Time Transfuse RBC Blood Bank Routine 08/22/2022 1:23 PM EDT Transfuse RBC Blood Bank Routine 08/22/2022 1:15 PM EDT Scheduled Procedures Name Priority Associated Diagnoses Date/Ti me EGD, UPPER GI ENDOSCOPY (WRV U 2.09) Peptic stricture of esophagus Scheduled Referrals Name Type Priority Associated Diagnoses Orde r Schedule Referral to Cardiology Outpatient Referral Routine Cardiomyopathy, unspecified type Ordered: 09/25/2022 Referral to Home Health Outpatient Referral Routine Neuroleptic-induced parkinsonism Ordered: 09/25/2022 documented as of this encounter Procedures Procedure Name Priority Date/Time Associated Diagnosis Comments LAB SCAN 09/28/2022 12:00 AM EDT POCT GLUCOSE Routine 09/25/2022 6:26 AM EDT PHOSPHORUS Routine 09/25/2022 3:11 AM EDT MAGNESIUM Routine 09/25/2022 3:11 AM EDT BASIC METABOLIC PANEL Routine 09/25/2022 3:11 AM EDT POCT GLUCOSE Routine 09/24/2022 8:44 PM EDT POCT GLUCOSE Routine 09/24/2022 4:03 PM EDT POCT GLUCOSE Routine 09/24/2022 11:44 AM EDT POCT GLUCOSE Routine 09/24/2022 6:21 AM EDT LAVENDER TUBE HOLD Routine 09/24/2022 5: 31 AM EDT PHOSPHORUS Routine 09/24/2022 5:31 AM EDT MAGNESIUM Routine 09/24/2022 5:31 AM EDT BASIC METABOLIC PANEL Routine 09/24/2022 5:31 AM EDT POCT GLUCOSE Routine 09/23/2022 7:58 PM EDT POCT GLUCOSE Routine 09/23/2022 4:40 PM EDT POCT GLUCOSE Routine 09/23/2022 2:00 PM EDT POCT GLUCOSE Routine 09/23/2022 1:14 PM EDT POCT GLUCOSE Routine 09/23/2022 11:37 AM EDT POCT GLUCOSE Routine 09/23/2022 6:24 AM EDT SCAN, PERIPHERAL BLOOD Routine 5:02 AM EDT HEMOGRAM Routine 09/23/2022 5:02 AM EDT DIFFERENTIAL, AUTOMATED Routine 09/23/2022 5:02 AM EDT CBC (WITH DIFF) Routine 09/23/2022 5:02 AM EDT PHOSPHORUS Routine 09/23/2022 5:02 AM EDT MAGNESIUM Routine 09/23/2022 5:02 AM EDT BASIC METABOLIC PANEL Routine 09/23/2022 5:02 AM EDT POCT GLUCOSE Routine 09/22/2022 8:23 PM EDT POCT GLUCOSE Routine 09/22/2022 4:35 PM EDT POCT GLUCOSE Routine 09/22/2022 11:24 AM EDT POCT GLUCOSE Routine 09/22/2022 6:38 AM EDT PHOSPHORUS Routine 09/22/2022 5:44 AM EDT MAGNESIUM Routine 09/22/2022 5:44 AM EDT BASIC METABOLIC PANEL Routine 09/22/2022 5:44 AM EDT POCT GLUCOSE Routine 09/21/2022 8:05 PM EDT POCT GLUCOSE Routine 09/21/2022 4:28 PM EDT POCT GLUCOSE Routine 09/21/2022 11:27 AM EDT POCT GLUCOSE Routine 09/21/2022 7:00 AM EDT PHOSPHORUS Routine 09/21/2022 5:54 AM EDT MAGNESIUM Routine 09/21/2022 5:54 AM EDT BASIC METABOLIC PANEL Routine 09/21/2022 5:54 AM EDT POCT GLUCOSE Routine 09/20/2022 11:25 PM EDT POCT GLUCOSE Routine 09/20/2022 9:19 PM EDT POCT GLUCOSE Routine 09/20/2022 4:09 PM EDT POCT GLUCOSE Routine 09/20/2022 11:06 AM EDT POCT GLUCOSE Routine 09/20/2022 5:39 AM EDT HEMOGRAM Routine 09/20/2022 5:06 AM EDT DIFFERENTIAL, AUTOMATED Routine 09/20/2022 5:06 AM EDT HC CBC,PLT & AUTO DIFF Routine 5:06 AM EDT PHOSPHORUS Routine 09/20/2022 5:06 AM EDT MAGNESIUM Routine 09/20/2022 5:06 AM EDT BASIC METABOLIC PANEL Routine 09/20/2022 5:06 AM EDT POCT GLUCOSE Routine 09/19/2022 10:53 PM EDT POCT GLUCOSE Routine 09/19/2022 8:51 PM EDT POCT GLUCOSE Routine 09/19/2022 7:57 PM EDT POCT GLUCOSE Routine 09/19/2022 4:02 PM EDT POCT GLUCOSE Routine 09/19/2022 11:50 AM EDT POCT GLUCOSE Routine 09/19/2022 6:45 AM EDT PHOSPHORUS Routine 09/19/2022 4:39 AM EDT MAGNESIUM Routine 09/19/2022 4:39 AM EDT BASIC METABOLIC PANEL Routine 09/19/2022 4:39 AM EDT POCT GLUCOSE Routine 09/19/2022 3:49 AM EDT POCT GLUCOSE Routine 09/18/2022 11:54 PM EDT POCT GLUCOSE Routine 09/18/2022 9:07 PM EDT POCT GLUCOSE Routine 09/18/2022 4:32 PM EDT POCT GLUCOSE Routine 09/18/2022 2:14 PM EDT POCT GLUCOSE Routine 09/18/2022 11:45 AM EDT POCT GLUCOSE Routine 09/18/2022 6:47 AM EDT PHOSPHORUS Routine 09/18/2022 4:53 AM EDT MAGNESIUM Routine 09/18/2022 4:53 AM EDT BASIC METABOLIC PANEL Routine 09/18/2022 4:53 AM EDT POCT GLUCOSE Routine 09/18/2022 4:06 AM EDT POCT GLUCOSE Routine 09/17/2022 11:02 PM EDT POCT GLUCOSE Routine 09/17/2022 9:14 PM EDT POCT GLUCOSE Routine 09/17/2022 4:14 PM EDT POCT GLUCOSE Routine 09/17/2022 11:34 AM EDT POCT GLUCOSE Routine 09/17/2022 6:57 AM EDT POCT GLUCOSE Routine 09/17/2022 3:07 AM EDT POCT GLUCOSE Routine 09/17/2022 12:59 AM EDT POCT GLUCOSE Routine 09/16/2022 8:03 PM EDT POCT GLUCOSE Routine 09/16/2022 4:22 PM EDT POCT GLUCOSE Routine 09/16/2022 11:21 AM EDT POCT GLUCOSE Routine 09/16/2022 6:33 AM EDT HEMOGRAM Routine 09/16/2022 3:08 AM EDT DIFFERENTIAL, AUTOMATED Routine 09/16/2022 3:08 AM EDT HC CBC,PLT & AUTO DIFF Routine 3:08 AM EDT PHOSPHORUS Routine 09/16/2022 3:08 AM EDT MAGNESIUM Routine 09/16/2022 3:08 AM EDT BASIC METABOLIC PANEL Routine 09/16/2022 3:08 AM EDT POCT GLUCOSE Routine 09/16/2022 2:59 AM EDT POCT GLUCOSE Routine 09/15/2022 11:15 PM EDT POCT GLUCOSE Routine 09/15/2022 7:17 PM EDT POCT GLUCOSE Routine 09/15/2022 3:46 PM EDT POCT GLUCOSE Routine 09/15/2022 11:15 AM EDT POCT GLUCOSE Routine 09/15/2022 6:30 AM EDT HEMOGRAM Routine 09/15/2022 3:00 AM EDT DIFFERENTIAL, AUTOMATED Routine 09/15/2022 3:00 AM EDT HC CBC,PLT & AUTO DIFF Routine 3:00 AM EDT PHOSPHORUS Routine 09/15/2022 3:00 AM EDT MAGNESIUM Routine 09/15/2022 3:00 AM EDT BASIC METABOLIC PANEL Routine 09/15/2022 3:00 AM EDT POCT GLUCOSE Routine 09/15/2022 2:58 AM EDT POCT GLUCOSE Routine 09/14/2022 11:29 PM EDT XR HIP 2-3 VIEWS LEFT Routine 09/14/2022 10:02 PM EDT POCT GLUCOSE Routine 09/14/2022 7:22 PM EDT POCT GLUCOSE Routine 09/14/2022 3:38 PM EDT POCT GLUCOSE Routine 09/14/2022 11:01 AM EDT POCT GLUCOSE Routine 09/14/2022 6:33 AM EDT HEMOGRAM Routine 09/14/2022 3:33 AM EDT DIFFERENTIAL, AUTOMATED Routine 09/14/2022 3:33 AM EDT HC CBC,PLT & AUTO DIFF Routine 3:33 AM EDT PHOSPHORUS Routine 09/14/2022 3:33 AM EDT MAGNESIUM Routine 09/14/2022 3:33 AM EDT BASIC METABOLIC PANEL Routine 09/14/2022 3:33 AM EDT POCT GLUCOSE Routine 09/14/2022 3:29 AM EDT POCT GLUCOSE Routine 09/13/2022 11:30 PM EDT POCT GLUCOSE Routine 09/13/2022 7:24 PM EDT POCT GLUCOSE Routine 09/13/2022 3:40 PM EDT BASIC METABOLIC PANEL Routine 09/13/2022 12:38 PM EDT POCT GLUCOSE Routine 09/13/2022 12:08 PM EDT POCT GLUCOSE Routine 09/13/2022 6:31 AM EDT POCT GLUCOSE Routine 09/13/2022 3:16 AM EDT HEMOGRAM Routine 09/13/2022 3:15 AM EDT DIFFERENTIAL, AUTOMATED Routine 09/13/2022 3:15 AM EDT HC CBC,PLT & AUTO DIFF Routine 3:15 AM EDT PHOSPHORUS Routine 09/13/2022 3:15 AM EDT MAGNESIUM Routine 09/13/2022 3:15 AM EDT BASIC METABOLIC PANEL Routine 09/13/2022 3:15 AM EDT POCT GLUCOSE Routine 09/12/2022 11:29 PM EDT POCT GLUCOSE Routine 09/12/2022 7:24 PM EDT MAGNESIUM Routine 09/12/2022 3:40 PM EDT BASIC METABOLIC PANEL Routine 09/12/2022 3:40 PM EDT POCT GLUCOSE Routine 09/12/2022 3:36 PM EDT POCT GLUCOSE Routine 09/12/2022 11:37 AM EDT POCT GLUCOSE Routine 09/12/2022 6:33 AM EDT HEMOGRAM Routine 09/12/2022 3:25 AM EDT DIFFERENTIAL, AUTOMATED Routine 09/12/2022 3:25 AM EDT HC CBC,PLT & AUTO DIFF Routine 3:25 AM EDT PHOSPHORUS Routine 09/12/2022 3:25 AM EDT MAGNESIUM Routine 09/12/2022 3:25 AM EDT BASIC METABOLIC PANEL Routine 09/12/2022 3:25 AM EDT POCT GLUCOSE Routine 09/12/2022 3:07 AM EDT POCT GLUCOSE Routine 09/11/2022 11:30 PM EDT POCT GLUCOSE Routine 09/11/2022 7:59 PM EDT POCT GLUCOSE Routine 09/11/2022 5:25 PM EDT IR G-TUBE PLACEMENT Routine 09/11/2022 5 :19 PM EDT PERCUTANEOUS GASTROSTOMY 09/11/2022 4:10 PM EDT DYSPHAGIA POCT GLUCOSE Routine 09/11/2022 11:35 AM EDT POCT GLUCOSE Routine 09/11/2022 6:47 AM EDT HEMOGRAM Routine 09/11/2022 4:05 AM EDT DIFFERENTIAL, AUTOMATED Routine 09/11/2022 4:05 AM EDT HC CBC,PLT & AUTO DIFF Routine 4:05 AM EDT PHOSPHORUS Routine 09/11/2022 4:05 AM EDT BASIC METABOLIC PANEL Routine 09/11/2022 4:05 AM EDT POCT GLUCOSE Routine 09/11/2022 3:56 AM EDT POCT GLUCOSE Routine 09/11/2022 12:03 AM EDT POCT GLUCOSE Routine 09/10/2022 7:45 PM EDT POCT GLUCOSE Routine 09/10/2022 4:21 PM EDT POCT GLUCOSE Routine 09/10/2022 3:23 PM EDT POCT GLUCOSE Routine 09/10/2022 2:07 PM EDT POCT GLUCOSE Routine 09/10/2022 11:59 AM EDT HEMOGRAM Routine 09/10/2022 9:20 AM EDT DIFFERENTIAL, AUTOMATED Routine 09/10/2022 9:20 AM EDT HC CBC,PLT & AUTO DIFF Routine 9:20 AM EDT POCT GLUCOSE Routine 09/10/2022 8:07 AM EDT POCT GLUCOSE Routine 09/10/2022 6:57 AM EDT PHOSPHORUS Routine 09/10/2022 6:00 AM EDT MAGNESIUM Routine 09/10/2022 6:00 AM EDT BASIC METABOLIC PANEL Routine 09/10/2022 6:00 AM EDT POCT GLUCOSE Routine 09/10/2022 3:40 AM EDT POCT GLUCOSE Routine 09/10/2022 1:44 AM EDT XR ABDOMEN 1 VIEW STAT 09/10/2022 1:0 4 AM EDT UPPER GI ENDOSCOPY Routine 09/10/2022 12 :13 AM EDT Upper GI Endoscopy, Diagnostic (46209) 09/09/2022 11:35 PM EDT failed MBS with aspitration risk POCT GLUCOSE Routine 09/09/2022 8:09 PM EDT POCT GLUCOSE Routine 09/09/2022 5:20 PM EDT POCT GLUCOSE Routine 09/09/2022 1:18 PM EDT POCT GLUCOSE Routine 09/09/2022 10:10 AM EDT POCT GLUCOSE Routine 09/09/2022 6:41 AM EDT HEMOGRAM Routine 09/09/2022 4:00 AM EDT DIFFERENTIAL, AUTOMATED Routine 09/09/2022 4:00 AM EDT HC CBC,PLT & AUTO DIFF Routine 4:00 AM EDT PHOSPHORUS Routine 09/09/2022 4:00 AM EDT MAGNESIUM Routine 09/09/2022 4:00 AM EDT BASIC METABOLIC PANEL Routine 09/09/2022 4:00 AM EDT POCT GLUCOSE Routine 09/09/2022 3:49 AM EDT POCT GLUCOSE Routine 09/08/2022 11:53 PM EDT POCT GLUCOSE Routine 09/08/2022 7:54 PM EDT POCT GLUCOSE Routine 09/08/2022 4:57 PM EDT POCT GLUCOSE Routine 09/08/2022 6:53 AM EDT POCT GLUCOSE Routine 09/08/2022 3:57 AM EDT HEMOGRAM Routine 09/08/2022 2:00 AM EDT DIFFERENTIAL, AUTOMATED Routine 09/08/2022 2:00 AM EDT HC CBC,PLT & AUTO DIFF Routine 2:00 AM EDT PHOSPHORUS Routine 09/08/2022 2:00 AM EDT MAGNESIUM Routine 09/08/2022 2:00 AM EDT BASIC METABOLIC PANEL Routine 09/08/2022 2:00 AM EDT POCT GLUCOSE Routine 09/07/2022 11:06 PM EDT POCT GLUCOSE Routine 09/07/2022 8:21 PM EDT POCT GLUCOSE Routine 09/07/2022 3:54 PM EDT POCT GLUCOSE Routine 09/07/2022 11:26 AM EDT POCT GLUCOSE Routine 09/07/2022 7:46 AM EDT EKG 12-LEAD Routine 09/07/2022 6:35 AM EDT Farrell's esophagus with dysplasia POCT GLUCOSE Routine 09/07/2022 4:08 AM EDT HEMOGRAM Routine 09/07/2022 12:30 AM EDT DIFFERENTIAL, AUTOMATED Routine 09/07/2022 12:30 AM EDT HC CBC,PLT & AUTO DIFF Routine 12:30 AM EDT HC PHOSPHORUS, SERUM Routine 09/07/2022 12:30 AM EDT HC MAGNESIUM, SERUM Routine 09/07/2022 1 2:30 AM EDT BASIC METABOLIC PANEL Routine 09/07/2022 12:30 AM EDT POCT GLUCOSE Routine 09/07/2022 12:29 AM EDT POCT GLUCOSE Routine 09/06/2022 9:54 PM EDT POCT GLUCOSE Routine 09/06/2022 4:46 PM EDT POCT GLUCOSE Routine 09/06/2022 12:57 PM EDT POCT GLUCOSE Routine 09/06/2022 9:06 AM EDT POCT GLUCOSE Routine 09/06/2022 3:39 AM EDT HEMOGRAM Routine 09/06/2022 1:00 AM EDT DIFFERENTIAL, AUTOMATED Routine 09/06/2022 1:00 AM EDT HC CBC,PLT & AUTO DIFF Routine 1:00 AM EDT HC PHOSPHORUS, SERUM Routine 09/06/2022 1:00 AM EDT HC MAGNESIUM, SERUM Routine 09/06/2022 1 :00 AM EDT BASIC METABOLIC PANEL Routine 09/06/2022 1:00 AM EDT POCT GLUCOSE Routine 09/05/2022 11:29 PM EDT POCT GLUCOSE Routine 09/05/2022 10:20 PM EDT POCT GLUCOSE Routine 09/05/2022 7:17 PM EDT POCT GLUCOSE Routine 09/05/2022 3:54 PM EDT POCT GLUCOSE Routine 09/05/2022 12:44 PM EDT POCT GLUCOSE Routine 09/05/2022 9:51 AM EDT XR CHEST ONE VIEW Routine 09/05/2022 9:2 4 AM EDT POCT GLUCOSE Routine 09/05/2022 4:10 AM EDT POCT GLUCOSE Routine 09/05/2022 1:18 AM EDT HEMOGRAM Routine 09/05/2022 1:06 AM EDT DIFFERENTIAL, AUTOMATED Routine 09/05/2022 1:06 AM EDT HC CBC,PLT & AUTO DIFF Routine 1:06 AM EDT HC PHOSPHORUS, SERUM Routine 09/05/2022 1:06 AM EDT HC MAGNESIUM, SERUM Routine 09/05/2022 1 :06 AM EDT BASIC METABOLIC PANEL Routine 09/05/2022 1:06 AM EDT POCT GLUCOSE Routine 09/04/2022 10:16 PM EDT XR ABDOMEN 1 VIEW Routine 09/04/2022 9:4 7 PM EDT XR CHEST ONE VIEW STAT 09/04/2022 9:4 7 PM EDT POCT GLUCOSE Routine 09/04/2022 8:49 PM EDT POCT GLUCOSE Routine 09/04/2022 5:20 PM EDT POCT GLUCOSE Routine 09/04/2022 4:39 PM EDT POCT GLUCOSE Routine 09/04/2022 3:21 PM EDT POCT GLUCOSE Routine 09/04/2022 11:07 AM EDT XR FLUORO BARIUM SWALLOW (MODIFIED/VIDEO SWALLOW PHARYNX) Routine 09/04/2022 10:25 AM EDT POCT GLUCOSE Routine 09/04/2022 7:18 AM EDT POCT GLUCOSE Routine 09/04/2022 3:35 AM EDT HEMOGRAM Routine 09/04/2022 12:26 AM EDT DIFFERENTIAL, AUTOMATED Routine 09/04/2022 12:26 AM EDT HC CBC,PLT & AUTO DIFF Routine 12:26 AM EDT HC PHOSPHORUS, SERUM Routine 09/04/2022 12:26 AM EDT HC MAGNESIUM, SERUM Routine 09/04/2022 1 2:26 AM EDT BASIC METABOLIC PANEL Routine 09/04/2022 12:26 AM EDT POCT GLUCOSE Routine 09/04/2022 12:19 AM EDT POCT GLUCOSE Routine 09/03/2022 7:30 PM EDT POCT GLUCOSE Routine 09/03/2022 4:00 PM EDT POCT GLUCOSE Routine 09/03/2022 12:43 PM EDT POCT GLUCOSE Routine 09/03/2022 7:48 AM EDT POCT GLUCOSE Routine 09/03/2022 4:52 AM EDT HEMOGRAM Routine 09/03/2022 12:40 AM EDT DIFFERENTIAL, AUTOMATED Routine 09/03/2022 12:40 AM EDT HC CBC,PLT & AUTO DIFF Routine 12:40 AM EDT HC PHOSPHORUS, SERUM Routine 09/03/2022 12:40 AM EDT HC MAGNESIUM, SERUM Routine 09/03/2022 1 2:40 AM EDT BASIC METABOLIC PANEL Routine 09/03/2022 12:40 AM EDT POCT GLUCOSE Routine 09/02/2022 11:05 PM EDT POCT GLUCOSE Routine 09/02/2022 8:05 PM EDT POCT GLUCOSE Routine 09/02/2022 4:22 PM EDT POCT GLUCOSE Routine 09/02/2022 12:22 PM EDT POCT GLUCOSE Routine 09/02/2022 7:49 AM EDT POCT GLUCOSE Routine 09/02/2022 5:43 AM EDT POCT GLUCOSE Routine 09/02/2022 3:44 AM EDT HEMOGRAM Routine 09/02/2022 1:05 AM EDT DIFFERENTIAL, AUTOMATED Routine 09/02/2022 1:05 AM EDT RETICULOCYTE COUNT Routine 09/02/2022 1: 05 AM EDT HC CBC,PLT & AUTO DIFF Routine 1:05 AM EDT HC PHOSPHORUS, SERUM Routine 09/02/2022 1:05 AM EDT HC MAGNESIUM, SERUM Routine 09/02/2022 1 :05 AM EDT BASIC METABOLIC PANEL Routine 09/02/2022 1:05 AM EDT POCT GLUCOSE Routine 09/02/2022 12:51 AM EDT POCT GLUCOSE Routine 09/01/2022 8:11 PM EDT POCT GLUCOSE Routine 09/01/2022 5:41 PM EDT POCT GLUCOSE Routine 09/01/2022 11:33 AM EDT POCT GLUCOSE Routine 09/01/2022 7:55 AM EDT POCT GLUCOSE Routine 09/01/2022 3:29 AM EDT EKG 12-LEAD STAT 09/01/2022 2:24 AM EDT Bradycardia SCAN, PERIPHERAL BLOOD Routine 2:10 AM EDT HEMOGRAM Routine 09/01/2022 2:10 AM EDT DIFFERENTIAL, AUTOMATED Routine 09/01/2022 2:10 AM EDT HC CBC,PLT & AUTO DIFF Routine 3 2:10 AM EDT HC PHOSPHORUS, SERUM Routine 09/01/2022 2:10 AM EDT HC MAGNESIUM, SERUM Routine 09/01/2022 2 :10 AM EDT BASIC METABOLIC PANEL Routine 09/01/2022 2:10 AM EDT POCT GLUCOSE Routine 08/31/2022 11:46 PM EDT POCT GLUCOSE Routine 08/31/2022 8:12 PM EDT POCT GLUCOSE Routine 08/31/2022 4:32 PM EDT POCT GLUCOSE Routine 08/31/2022 11:42 AM EDT XR FLUORO BARIUM SWALLOW (MODIFIED/VIDEO SWALLOW PHARYNX) Routine 08/31/2022 11:23 AM EDT POCT GLUCOSE Routine 08/31/2022 7:36 AM EDT HEMOGRAM Routine 08/31/2022 4:30 AM EDT DIFFERENTIAL, AUTOMATED Routine 08/31/2022 4:30 AM EDT HC CBC,PLT & AUTO DIFF Routine 4:30 AM EDT HC PHOSPHORUS, SERUM Routine 08/31/2022 4:30 AM EDT HC MAGNESIUM, SERUM Routine 08/31/2022 4 :30 AM EDT POCT GLUCOSE Routine 08/31/2022 4:08 AM EDT POCT GLUCOSE Routine 08/31/2022 12:03 AM EDT POCT GLUCOSE Routine 08/30/2022 7:58 PM EDT POCT GLUCOSE Routine 08/30/2022 4:59 PM EDT POCT GLUCOSE Routine 08/30/2022 11:29 AM EDT POCT GLUCOSE Routine 08/30/2022 8:59 AM EDT HEMOGRAM Routine 08/30/2022 4:05 AM EDT DIFFERENTIAL, AUTOMATED Routine 08/30/2022 4:05 AM EDT HC CBC,PLT & AUTO DIFF Routine 4:05 AM EDT HC PHOSPHORUS, SERUM Routine 08/30/2022 4:05 AM EDT HC MAGNESIUM, SERUM Routine 08/30/2022 4 :05 AM EDT BASIC METABOLIC PANEL Routine 08/30/2022 4:05 AM EDT POCT GLUCOSE Routine 08/30/2022 4:00 AM EDT POCT GLUCOSE Routine 08/29/2022 11:58 PM EDT POCT GLUCOSE Routine 08/29/2022 8:16 PM EDT POCT GLUCOSE Routine 08/29/2022 4:08 PM EDT HC VALPROIC ACID Routine 08/29/2022 11:3 5 AM EDT POCT GLUCOSE Routine 08/29/2022 11:34 AM EDT HEMOGRAM Routine 08/29/2022 9:30 AM EDT DIFFERENTIAL, AUTOMATED Routine 08/29/2022 9:30 AM EDT HC CBC,PLT & AUTO DIFF Routine 9:30 AM EDT HC PHOSPHORUS, SERUM Routine 08/29/2022 9:30 AM EDT HC MAGNESIUM, SERUM Routine 08/29/2022 9 :30 AM EDT BASIC METABOLIC PANEL Routine 08/29/2022 9:30 AM EDT POCT GLUCOSE Routine 08/29/2022 9:13 AM EDT HC VALPROIC ACID Timed 08/29/2022 4:48 AM EDT LIPID PANEL (REFLEX DIRECT LDL) Routine 08/29/2022 4:48 AM EDT POCT GLUCOSE Routine 08/29/2022 3:53 AM EDT POCT GLUCOSE Routine 08/29/2022 12:13 AM EDT POCT GLUCOSE Routine 08/28/2022 7:38 PM EDT POCT GLUCOSE Routine 08/28/2022 4:33 PM EDT POCT GLUCOSE Routine 08/28/2022 12:06 PM EDT HEMOGRAM Routine 08/28/2022 7:00 AM EDT DIFFERENTIAL, AUTOMATED Routine 08/28/2022 7:00 AM EDT HC CBC,PLT & AUTO DIFF Routine 7:00 AM EDT HC PHOSPHORUS, SERUM Routine 08/28/2022 7:00 AM EDT HC MAGNESIUM, SERUM Routine 08/28/2022 7 :00 AM EDT BASIC METABOLIC PANEL Routine 08/28/2022 7:00 AM EDT POCT GLUCOSE Routine 08/28/2022 4:59 AM EDT POCT GLUCOSE Routine 08/28/2022 12:08 AM EDT POCT GLUCOSE Routine 08/27/2022 9:50 PM EDT HC POTASSIUM Routine 08/27/2022 6:00 PM EDT POCT GLUCOSE Routine 08/27/2022 4:55 PM EDT HC POTASSIUM Routine 08/27/2022 1:55 PM EDT POCT GLUCOSE Routine 08/27/2022 11:32 AM EDT HC POTASSIUM Routine 08/27/2022 9:[address] ANGIOGRAM CORONARY ARTERIES Routine 08/27/2022 8:[address] CHEST WO CONTRAST (GENERIC) Routine 08/27/2022 8:58 AM EDT POCT GLUCOSE Routine 08/27/2022 7:38 AM EDT HEMOGRAM Routine 08/27/2022 5:40 AM EDT DIFFERENTIAL, AUTOMATED Routine 08/27/2022 5:40 AM EDT HC CBC,PLT & AUTO DIFF Routine 5:40 AM EDT HC PHOSPHORUS, SERUM Routine 08/27/2022 5:40 AM EDT HC MAGNESIUM, SERUM Routine 08/27/2022 5 :40 AM EDT BASIC METABOLIC PANEL Routine 08/27/2022 5:40 AM EDT POCT GLUCOSE Routine 08/27/2022 5:19 AM EDT POCT GLUCOSE Routine 08/26/2022 11:27 PM EDT POCT GLUCOSE Routine 08/26/2022 8:05 PM EDT POCT GLUCOSE Routine 08/26/2022 4:51 PM EDT POCT GLUCOSE Routine 08/26/2022 1:13 PM EDT POCT GLUCOSE Routine 08/26/2022 11:28 AM EDT POCT GLUCOSE Routine 08/26/2022 7:58 AM EDT POCT GLUCOSE Routine 08/26/2022 4:42 AM EDT HEMOGRAM Routine 08/26/2022 12:22 AM EDT DIFFERENTIAL, AUTOMATED Routine 08/26/2022 12:22 AM EDT HC CBC,PLT & AUTO DIFF Routine 12:22 AM EDT HC PHOSPHORUS, SERUM Routine 08/26/2022 12:22 AM EDT HC MAGNESIUM, SERUM Routine 08/26/2022 1 2:22 AM EDT BASIC METABOLIC PANEL Routine 08/26/2022 12:22 AM EDT POCT GLUCOSE Routine 08/26/2022 12:19 AM EDT POCT GLUCOSE Routine 08/25/2022 7:47 PM EDT POCT GLUCOSE Routine 08/25/2022 4:31 PM EDT POCT GLUCOSE Routine 08/25/2022 3:08 PM EDT POCT GLUCOSE Routine 08/25/2022 2:09 PM EDT POCT GLUCOSE Routine 08/25/2022 12:44 PM EDT POCT GLUCOSE Routine 08/25/2022 12:25 PM EDT HC VALPROIC ACID Routine 08/25/2022 11:2 8 AM EDT POCT GLUCOSE Routine 08/25/2022 11:09 AM EDT POCT GLUCOSE Routine 08/25/2022 9:52 AM EDT POCT GLUCOSE Routine 08/25/2022 8:59 AM EDT POCT GLUCOSE Routine 08/25/2022 7:32 AM EDT POCT GLUCOSE Routine 08/25/2022 5:50 AM EDT POCT GLUCOSE Routine 08/25/2022 3:23 AM EDT POCT GLUCOSE Routine 08/25/2022 2:35 AM EDT SCAN, PERIPHERAL BLOOD Routine 1:14 AM EDT HEMOGRAM Routine 08/25/2022 1:14 AM EDT DIFFERENTIAL, AUTOMATED Routine 08/25/2022 1:14 AM EDT HC CBC,PLT & AUTO DIFF Routine 1:14 AM EDT HC PHOSPHORUS, SERUM Routine 08/25/2022 1:14 AM EDT HC MAGNESIUM, SERUM Routine 08/25/2022 1 :14 AM EDT BASIC METABOLIC PANEL Routine 08/25/2022 1:14 AM EDT POCT GLUCOSE Routine 08/25/2022 1:00 AM EDT POCT GLUCOSE Routine 08/24/2022 11:26 PM EDT POCT GLUCOSE Routine 08/24/2022 10:16 PM EDT POCT GLUCOSE Routine 08/24/2022 9:20 PM EDT POCT GLUCOSE Routine 08/24/2022 7:41 PM EDT POCT GLUCOSE Routine 08/24/2022 6:38 PM EDT POCT GLUCOSE Routine 08/24/2022 6:00 PM EDT POCT GLUCOSE Routine 08/24/2022 4:21 PM EDT POCT GLUCOSE Routine 08/24/2022 3:14 PM EDT HC POTASSIUM Routine 08/24/2022 2:21 PM EDT POCT GLUCOSE Routine 08/24/2022 2:16 PM EDT POCT GLUCOSE Routine 08/24/2022 1:10 PM EDT POCT GLUCOSE Routine 08/24/2022 12:12 PM EDT HC PARATHYROID HORMONE(PTH INTACT Routine 08/24/2022 11:29 AM EDT HC VITAMIN D TOTAL-25 HYDROXY Routine 08/24/2022 11:29 AM EDT POCT GLUCOSE Routine 08/24/2022 11:22 AM EDT POCT GLUCOSE Routine 08/24/2022 10:27 AM EDT POCT GLUCOSE Routine 08/24/2022 9:12 AM EDT POCT GLUCOSE Routine 08/24/2022 8:00 AM EDT POCT GLUCOSE Routine 08/24/2022 6:16 AM EDT POCT GLUCOSE Routine 08/24/2022 4:49 AM EDT POCT GLUCOSE Routine 08/24/2022 4:08 AM EDT SCAN, PERIPHERAL BLOOD Routine 1:53 AM EDT HEMOGRAM Routine 08/24/2022 1:53 AM EDT DIFFERENTIAL, AUTOMATED Routine 08/24/2022 1:53 AM EDT HC CBC,PLT & AUTO DIFF Routine 1:53 AM EDT HC PHOSPHORUS, SERUM Routine 08/24/2022 1:53 AM EDT HC MAGNESIUM, SERUM Routine 08/24/2022 1 :53 AM EDT BASIC METABOLIC PANEL Routine 08/24/2022 1:53 AM EDT POCT GLUCOSE Routine 08/24/2022 1:51 AM EDT POCT GLUCOSE Routine 08/24/2022 12:01 AM EDT POCT GLUCOSE Routine 08/23/2022 11:03 PM EDT POCT GLUCOSE Routine 08/23/2022 9:10 PM EDT POCT GLUCOSE Routine 08/23/2022 7:01 PM EDT POCT GLUCOSE Routine 08/23/2022 6:09 PM EDT POCT GLUCOSE Routine 08/23/2022 4:26 PM EDT POCT GLUCOSE Routine 08/23/2022 2:56 PM EDT POCT GLUCOSE Routine 08/23/2022 1:32 PM EDT POCT GLUCOSE Routine 08/23/2022 12:06 PM EDT POCT GLUCOSE Routine 08/23/2022 11:09 AM EDT SCAN, PERIPHERAL BLOOD Routine 10:55 AM EDT HEMOGRAM Routine 08/23/2022 10:55 AM EDT DIFFERENTIAL, AUTOMATED Routine 08/23/2022 10:55 AM EDT HC CBC,PLT & AUTO DIFF Routine 10:55 AM EDT POCT GLUCOSE Routine 08/23/2022 8:01 AM EDT POCT GLUCOSE Routine 08/23/2022 4:22 AM EDT POCT GLUCOSE Routine 08/23/2022 2:32 AM EDT SCAN, PERIPHERAL BLOOD Routine 2:30 AM EDT HEMOGRAM Routine 08/23/2022 2:30 AM EDT DIFFERENTIAL, AUTOMATED Routine 08/23/2022 2:30 AM EDT HC CBC,PLT & AUTO DIFF Routine 2:30 AM EDT HC PHOSPHORUS, SERUM Routine 08/23/2022 2:30 AM EDT HC MAGNESIUM, SERUM Routine 08/23/2022 2 :30 AM EDT BASIC METABOLIC PANEL Routine 08/23/2022 2:30 AM EDT POCT GLUCOSE Routine 08/23/2022 1:11 AM EDT POCT GLUCOSE Routine 08/23/2022 12:28 AM EDT POCT GLUCOSE Routine 08/22/2022 10:15 PM EDT POCT GLUCOSE Routine 08/22/2022 9:11 PM EDT POCT GLUCOSE Routine 08/22/2022 6:47 PM EDT POCT GLUCOSE Routine 08/22/2022 6:14 PM EDT POCT GLUCOSE Routine 08/22/2022 5:37 PM EDT POCT GLUCOSE Routine 08/22/2022 4:17 PM EDT POCT GLUCOSE Routine 08/22/2022 2:01 PM EDT TRANSFUSE RED BLOOD CELLS Routine 08/22/2022 1:15 PM EDT POCT GLUCOSE Routine 08/22/2022 12:10 PM EDT PREPARE RBC Routine 08/22/2022 11:15 AM EDT POCT GLUCOSE Routine 08/22/2022 10:03 AM EDT TYPE AND SCREEN VALIDITY Routine 08/22/2022 9:00 AM EDT ABORH RECHECK STATUS Routine 08/22/2022 9:00 AM EDT ABO/RH TYPING Routine 08/22/2022 9:00 AM EDT ANTIBODY SCREEN Routine 08/22/2022 9:00 AM EDT TYPE AND SCREEN ([facility]/CGP/RABIA) Routine 08/22/2022 9:00 AM EDT POCT GLUCOSE Routine 08/22/2022 8:00 AM EDT POCT GLUCOSE Routine 08/22/2022 5:53 AM EDT POCT GLUCOSE Routine 08/22/2022 3:40 AM EDT HEMOGRAM Routine 08/22/2022 3:39 AM EDT DIFFERENTIAL, AUTOMATED Routine 08/22/2022 3:39 AM EDT HC CBC,PLT & AUTO DIFF Routine 3:39 AM EDT HC PHOSPHORUS, SERUM Routine 08/22/2022 3:39 AM EDT HC MAGNESIUM, SERUM Routine 08/22/2022 3 :39 AM EDT BASIC METABOLIC PANEL Routine 08/22/2022 3:39 AM EDT POCT GLUCOSE Routine 08/22/2022 2:15 AM EDT POCT GLUCOSE Routine 08/22/2022 12:43 AM EDT XR HIP 2-3 VIEWS LEFT Routine 08/22/2022 12:19 AM EDT XR PELVIS Routine 08/22/2022 12:19 AM EDT POCT GLUCOSE Routine 08/21/2022 10:26 PM EDT POCT GLUCOSE Routine 08/21/2022 7:48 PM EDT POCT GLUCOSE Routine 08/21/2022 5:59 PM EDT EXTUBATE Routine 08/21/2022 5:34 PM EDT POCT GLUCOSE Routine 08/21/2022 5:06 PM EDT HC BODY FLUID CELL CT W/DIFF Routine 08/21/2022 4:50 PM EDT HC CALCOFLUOR FUNGAL STAIN Routine 08/21/2022 4:50 PM EDT HC MYCOBACTERIA CULTURE Routine 08/21/2022 4:50 PM EDT FUNGAL STAIN Routine 08/21/2022 4:50 PM EDT LOWER RESPIRATORY CULTURE Routine 08/21/2022 4:50 PM EDT FUNGUS CULTURE Routine 08/21/2022 4:50 PM EDT HC BODY FLUID CELL CT W/DIFF Routine 08/21/2022 4:45 PM EDT HC CALCOFLUOR FUNGAL STAIN Routine 08/21/2022 4:45 PM EDT HC MYCOBACTERIA CULTURE Routine 08/21/2022 4:45 PM EDT FUNGAL STAIN Routine 08/21/2022 4:45 PM EDT LOWER RESPIRATORY CULTURE Routine 08/21/2022 4:45 PM EDT FUNGUS CULTURE Routine 08/21/2022 4:45 PM EDT HC POTASSIUM Routine 08/21/2022 3:45 PM EDT POCT GLUCOSE Routine 08/21/2022 3:24 PM EDT IR ULTRASOUND IN IR Routine 08/21/2022 3 :09 PM EDT POCT GLUCOSE Routine 08/21/2022 1:34 PM EDT POCT GLUCOSE Routine 08/21/2022 12:58 PM EDT CRP, ACUTE INFLAMMATION Routine 08/21/2022 12:00 PM EDT SEDIMENTATION RATE Routine 08/21/2022 12 :00 PM EDT POCT GLUCOSE Routine 08/21/2022 11:56 AM EDT HC IRON BINDING CAPACITY Routine 08/21/2022 10:00 AM EDT HC PCH HISTOPLASMA ANTIGEN Routine 08/21/2022 10:00 AM EDT POTASSIUM Routine 08/21/2022 10:00 AM EDT FERRITIN Routine 08/21/2022 10:00 AM EDT POCT GLUCOSE Routine 08/21/2022 9:57 AM EDT HC PCH ASPERGILLUS (GALACTOMANNAN) ANTIGEN Routine 08/21/2022 8:30 AM EDT POCT GLUCOSE Routine 08/21/2022 8:28 AM EDT HC PCH FUNGITELL; (1, 3) [id number] Routine 08/21/2022 8:00 AM EDT POCT GLUCOSE Routine 08/21/2022 7:50 AM EDT POCT GLUCOSE Routine 08/21/2022 6:06 AM EDT POCT GLUCOSE Routine 08/21/2022 3:48 AM EDT HEMOGRAM Routine 08/21/2022 3:46 AM EDT DIFFERENTIAL, AUTOMATED Routine 08/21/2022 3:46 AM EDT HC CBC,PLT & AUTO DIFF Routine 3:46 AM EDT HC PHOSPHORUS, SERUM Routine 08/21/2022 3:46 AM EDT HC MAGNESIUM, SERUM Routine 08/21/2022 3 :46 AM EDT HC LIPASE Routine 08/21/2022 3:46 AM EDT BASIC METABOLIC PANEL Routine 08/21/2022 3:46 AM EDT POCT GLUCOSE Routine 08/21/2022 1:57 AM EDT POCT GLUCOSE Routine 08/20/2022 11:[address] HIP W CONTRAST LEFT Routine 11:[address] CHEST W CONTRAST Routine 08/20/2022 1 1:04 PM EDT POCT GLUCOSE Routine 08/20/2022 9:54 PM EDT POCT GLUCOSE Routine 08/20/2022 8:46 PM EDT POCT GLUCOSE Routine 08/20/2022 6:21 PM EDT POCT GLUCOSE Routine 08/20/2022 4:27 PM EDT POCT GLUCOSE Routine 08/20/2022 2:11 PM EDT HC THYROID STIMULATING HORMONE, SERUM Routine 08/20/2022 2:00 PM EDT HEPATIC FUNCTION PANEL STAT 2:00 PM EDT POCT GLUCOSE Routine 08/20/2022 12:13 PM EDT POCT GLUCOSE Routine 08/20/2022 10:05 AM EDT POCT GLUCOSE Routine 08/20/2022 7:26 AM EDT POCT GLUCOSE Routine 08/20/2022 6:31 AM EDT BLOOD GAS ARTERIAL POC Routine 5:41 AM EDT POCT GLUCOSE Routine 08/20/2022 4:29 AM EDT POCT GLUCOSE Routine 08/20/2022 3:53 AM EDT POCT GLUCOSE Routine 08/20/2022 2:05 AM EDT SCAN, PERIPHERAL BLOOD Routine 12:30 AM EDT HEMOGRAM Routine 08/20/2022 12:30 AM EDT DIFFERENTIAL, AUTOMATED Routine 08/20/2022 12:30 AM EDT HC CBC,PLT & AUTO DIFF Routine 12:30 AM EDT HC PHOSPHORUS, SERUM Routine 08/20/2022 12:30 AM EDT HC MAGNESIUM, SERUM Routine 08/20/2022 1 2:30 AM EDT BASIC METABOLIC PANEL Routine 08/20/2022 12:30 AM EDT POCT GLUCOSE Routine 08/20/2022 12:27 AM EDT POCT GLUCOSE Routine 08/19/2022 11:34 PM EDT POCT GLUCOSE Routine 08/19/2022 10:32 PM EDT MRI BRAIN WO CONTRAST Routine 08/19/2022 10:15 PM EDT POCT GLUCOSE Routine 08/19/2022 7:08 PM EDT POCT GLUCOSE Routine 08/19/2022 6:03 PM EDT HC BLOOD CULTURE- STAT 08/19/2022 5:2 0 PM EDT POCT GLUCOSE Routine 08/19/2022 5:[address] BEDSIDE PICC LINE Routine 08/19/2022 4:51 PM EDT XR CHEST FOR VERIFYING VASCULAR ACCESS PICC PLACEMENT AT BEDSIDE Routine 08/19/2022 4:36 PM EDT POCT GLUCOSE Routine 08/19/2022 3:15 PM EDT HC GRAM STAIN FOR BACTERIA Routine 08/19/2022 2:51 PM EDT HC L-LACTATE Routine 08/19/2022 2:45 PM EDT URINALYSIS MICROSCOPIC EXAM Routine 08/19/2022 2:30 PM EDT URINALYSIS WITH REFLEX CULTURE Routine 08/19/2022 2:30 PM EDT PHOSPHORUS Routine 08/19/2022 1:45 PM EDT BASIC METABOLIC PANEL Routine 08/19/2022 1:45 PM EDT HC BLOOD CULTURE- STAT 08/19/2022 1:3 0 PM EDT XR CHEST ONE VIEW Routine 08/19/2022 12: 30 PM EDT POCT GLUCOSE Routine 08/19/2022 11:35 AM EDT ECHO LMTD W CONTRAST W LMTD SPEC DOPP COLOR DOPP Routine 08/19/2022 11:30 AM EDT Shock POCT GLUCOSE Routine 08/19/2022 9:49 AM EDT POCT GLUCOSE Routine 08/19/2022 7:57 AM EDT POCT GLUCOSE Routine 08/19/2022 6:58 AM EDT BLOOD GAS ARTERIAL POC Routine 5:07 AM EDT POCT GLUCOSE Routine 08/19/2022 3:08 AM EDT HEMOGRAM Routine 08/19/2022 1:20 AM EDT DIFFERENTIAL, AUTOMATED Routine 08/19/2022 1:20 AM EDT HC CBC,PLT & AUTO DIFF Routine 1:20 AM EDT HC PHOSPHORUS, SERUM Routine 08/19/2022 1:20 AM EDT HC MAGNESIUM, SERUM Routine 08/19/2022 1 :20 AM EDT CK Routine 08/19/2022 1:20 AM EDT BASIC METABOLIC PANEL Routine 08/19/2022 1:20 AM EDT POCT GLUCOSE Routine 08/19/2022 1:19 AM EDT POCT GLUCOSE Routine 08/18/2022 11:03 PM EDT POCT GLUCOSE Routine 08/18/2022 9:05 PM EDT POCT GLUCOSE Routine 08/18/2022 7:51 PM EDT POCT GLUCOSE Routine 08/18/2022 6:31 PM EDT POCT GLUCOSE Routine 08/18/2022 4:56 PM EDT POCT GLUCOSE Routine 08/18/2022 3:[address] HEAD WO CONTRAST (GENERIC) STAT 08/18/2022 3:14 PM EDT POCT GLUCOSE Routine 08/18/2022 2:38 PM EDT EEG Routine 08/18/2022 2:19 PM EDT POCT GLUCOSE Routine 08/18/2022 1:53 PM EDT POCT GLUCOSE Routine 08/18/2022 12:30 PM EDT POCT GLUCOSE Routine 08/18/2022 11:12 AM EDT POCT GLUCOSE Routine 08/18/2022 10:37 AM EDT HC LEGIONELLA URINARY ANTIGEN Routine 08/18/2022 10:13 AM EDT POCT GLUCOSE Routine 08/18/2022 7:36 AM EDT BLOOD GAS ARTERIAL POC Routine 6:15 AM EDT POCT GLUCOSE Routine 08/18/2022 2:31 AM EDT SCAN, PERIPHERAL BLOOD Routine 2:30 AM EDT HEMOGRAM Routine 08/18/2022 2:30 AM EDT DIFFERENTIAL, AUTOMATED Routine 08/18/2022 2:30 AM EDT HC CBC,PLT & AUTO DIFF Routine 2:30 AM EDT HC PHOSPHORUS, SERUM Routine 08/18/2022 2:30 AM EDT HC MAGNESIUM, SERUM Routine 08/18/2022 2 :30 AM EDT BASIC METABOLIC PANEL Routine 08/18/2022 2:30 AM EDT POCT GLUCOSE Routine 08/18/2022 1:15 AM EDT POCT GLUCOSE Routine 08/17/2022 11:04 PM EDT HC POTASSIUM Routine 08/17/2022 9:29 PM EDT POCT GLUCOSE Routine 08/17/2022 8:06 PM EDT POCT GLUCOSE Routine 08/17/2022 6:47 PM EDT POCT GLUCOSE Routine 08/17/2022 5:42 PM EDT POCT GLUCOSE Routine 08/17/2022 4:44 PM EDT HC VANCOMYCIN Timed 08/17/2022 3:15 PM EDT HC POTASSIUM Routine 08/17/2022 3:15 PM EDT POCT GLUCOSE Routine 08/17/2022 3:10 PM EDT POCT GLUCOSE Routine 08/17/2022 1:41 PM EDT XR ABDOMEN 1 VIEW Routine 08/17/2022 12: 09 PM EDT POCT GLUCOSE Routine 08/17/2022 11:31 AM EDT POCT GLUCOSE Routine 08/17/2022 9:27 AM EDT POCT GLUCOSE Routine 08/17/2022 7:50 AM EDT POCT GLUCOSE Routine 08/17/2022 6:53 AM EDT POCT GLUCOSE Routine 08/17/2022 6:18 AM EDT HC UNFRACTIONATED HEPARIN (HEP UFH) Timed 08/17/2022 6:15 AM EDT POCT GLUCOSE Routine 08/17/2022 5:20 AM EDT POCT GLUCOSE Routine 08/17/2022 4:19 AM EDT POCT GLUCOSE Routine 08/17/2022 2:51 AM EDT POCT GLUCOSE Routine 08/17/2022 2:05 AM EDT POCT GLUCOSE Routine 08/17/2022 1:36 AM EDT POCT GLUCOSE Routine 08/17/2022 1:07 AM EDT HC UNFRACTIONATED HEPARIN (HEP UFH) Timed 08/17/2022 12:45 AM EDT HEMOGRAM Routine 08/17/2022 12:45 AM EDT DIFFERENTIAL, AUTOMATED Routine 08/17/2022 12:45 AM EDT HC CBC,PLT & AUTO DIFF Routine 12:45 AM EDT POTASSIUM Routine 08/17/2022 12:45 AM EDT HC PHOSPHORUS, SERUM Routine 08/17/2022 12:45 AM EDT HC MAGNESIUM, SERUM Routine 08/17/2022 1 2:45 AM EDT BASIC METABOLIC PANEL Routine 08/17/2022 12:45 AM EDT POCT GLUCOSE Routine 08/17/2022 12:02 AM EDT POCT GLUCOSE Routine 08/16/2022 11:[address] HEAD WO CONTRAST (GENERIC) Routine 08/16/2022 10:44 PM EDT POCT GLUCOSE Routine 08/16/2022 10:12 PM EDT POCT GLUCOSE Routine 08/16/2022 9:23 PM EDT COOX, POC Routine 08/16/2022 8:12 PM EDT BLOOD GAS ARTERIAL POC Routine 8:09 PM EDT BASIC METABOLIC PANEL Routine 08/16/2022 6:00 PM EDT BLOOD GAS ARTERIAL POC Routine 5:59 PM EDT BLOOD GAS ARTERIAL POC Routine 4:02 PM EDT COOX, POC Routine 08/16/2022 3:58 PM EDT POCT GLUCOSE Routine 08/16/2022 2:15 PM EDT POCT GLUCOSE Routine 08/16/2022 1:11 PM EDT BLOOD GAS ARTERIAL POC Routine 12:16 PM EDT COOX, POC Routine 08/16/2022 12:11 PM EDT COOX, POC Routine 08/16/2022 11:17 AM EDT XR CHEST ONE VIEW Routine 08/16/2022 10: 31 AM EDT COOX, POC Routine 08/16/2022 9:48 AM EDT POCT GLUCOSE Routine 08/16/2022 9:47 AM EDT COOX, POC Routine 08/16/2022 8:20 AM EDT BLOOD GAS ARTERIAL POC Routine 8:17 AM EDT HC TROPONIN T STAT 08/16/2022 8:10 AM EDT HC POTASSIUM Routine 08/16/2022 8:10 AM EDT POCT GLUCOSE Routine 08/16/2022 5:54 AM EDT COOX, POC Routine 08/16/2022 4:44 AM EDT BLOOD GAS ARTERIAL POC Routine 4:41 AM EDT HC TROPONIN T STAT 08/16/2022 3:36 AM EDT HC UNFRACTIONATED HEPARIN (HEP UFH) Timed 08/16/2022 3:36 AM EDT SCAN, PERIPHERAL BLOOD Routine 3:36 AM EDT HEMOGRAM Routine 08/16/2022 3:36 AM EDT DIFFERENTIAL, AUTOMATED Routine 08/16/2022 3:36 AM EDT HC CBC,PLT & AUTO DIFF Routine 3:36 AM EDT HC PHOSPHORUS, SERUM Routine 08/16/2022 3:36 AM EDT HC MAGNESIUM, SERUM Routine 08/16/2022 3 :36 AM EDT BASIC METABOLIC PANEL Routine 08/16/2022 3:36 AM EDT POCT GLUCOSE Routine 08/16/2022 3:34 AM EDT EKG 12-LEAD STAT 08/16/2022 3:24 AM EDT Shock COOX, POC Routine 08/16/2022 2:13 AM EDT POCT GLUCOSE Routine 08/16/2022 1:38 AM EDT POCT GLUCOSE Routine 08/16/2022 1:01 AM EDT COOX, POC Routine 08/16/2022 12:04 AM EDT BLOOD GAS ARTERIAL POC Routine 11:59 PM EDT POCT GLUCOSE Routine 08/15/2022 9:46 PM EDT HC VANCOMYCIN Timed 08/15/2022 9:40 PM EDT HC POTASSIUM Routine 08/15/2022 9:40 PM EDT COOX, POC Routine 08/15/2022 8:10 PM EDT BLOOD GAS ARTERIAL POC Routine 8:08 PM EDT POCT GLUCOSE Routine 08/15/2022 6:03 PM EDT POCT GLUCOSE Routine 08/15/2022 4:51 PM EDT HC UNFRACTIONATED HEPARIN (HEP UFH) Timed 08/15/2022 4:50 PM EDT COOX, POC Routine 08/15/2022 4:24 PM EDT VANCOMYCIN LEVEL, RANDOM Routine 08/15/2022 4:20 PM EDT HC UNFRACTIONATED HEPARIN (HEP UFH) Timed 08/15/2022 4:20 PM EDT HC POTASSIUM Routine 08/15/2022 4:20 PM EDT BASIC METABOLIC PANEL Routine 08/15/2022 4:20 PM EDT BLOOD GAS ARTERIAL POC Routine 4:16 PM EDT POCT GLUCOSE Routine 08/15/2022 2:01 PM EDT POCT GLUCOSE Routine 08/15/2022 1:16 PM EDT POCT GLUCOSE Routine 08/15/2022 1:00 PM EDT HC URINE CULTURE Routine 08/15/2022 12:2 5 PM EDT BLOOD GAS ARTERIAL POC Routine 12:18 PM EDT COOX, POC Routine 08/15/2022 12:13 PM EDT POCT GLUCOSE Routine 08/15/2022 11:59 AM EDT RAPID COVID-19 PCR ([facility]) Routine 08/15/2022 11:50 AM EDT POCT GLUCOSE Routine 08/15/2022 11:22 AM EDT POCT GLUCOSE Routine 08/15/2022 10:13 AM EDT ECHO COMPLETE Routine 08/15/2022 10:04 AM EDT Shock HC TROPONIN T STAT 08/15/2022 9:50 AM EDT HC POTASSIUM Routine 08/15/2022 9:50 AM EDT HEPATIC FUNCTION PANEL STAT 9:50 AM EDT HC UNFRACTIONATED HEPARIN (HEP UFH) Timed 08/15/2022 8:50 AM EDT BLOOD GAS ARTERIAL POC Routine 8:49 AM EDT XR ABDOMEN 1 VIEW Routine 08/15/2022 8:3 3 AM EDT POCT GLUCOSE Routine 08/15/2022 7:51 AM EDT HC SPUTUM CULTURE Routine 08/15/2022 7:4 0 AM EDT EKG 12-LEAD Routine 08/15/2022 7:36 AM EDT Shock XR ABDOMEN 1 VIEW STAT 08/15/2022 6:3 8 AM EDT POCT GLUCOSE Routine 08/15/2022 6:38 AM EDT HC L-LACTATE STAT 08/15/2022 5:55 AM EDT COOX, POC Routine 08/15/2022 5:33 AM EDT BLOOD GAS ARTERIAL POC Routine 5:31 AM EDT POCT GLUCOSE Routine 08/15/2022 5:00 AM EDT BLOOD GAS ARTERIAL POC Routine 3:11 AM EDT HC UNFRACTIONATED HEPARIN (HEP UFH) Timed 08/15/2022 3:05 AM EDT SCAN, PERIPHERAL BLOOD Routine 3:05 AM EDT HEMOGRAM Routine 08/15/2022 3:05 AM EDT DIFFERENTIAL, AUTOMATED Routine 08/15/2022 3:05 AM EDT HC CBC,PLT & AUTO DIFF Routine 3:05 AM EDT HC PHOSPHORUS, SERUM Routine 08/15/2022 3:05 AM EDT HC MAGNESIUM, SERUM Routine 08/15/2022 3 :05 AM EDT HEMOGLOBIN A1C Routine 08/15/2022 3:05 AM EDT HEPATIC FUNCTION PANEL Routine 3:05 AM EDT BASIC METABOLIC PANEL Routine 08/15/2022 3:05 AM EDT URINALYSIS MICROSCOPIC EXAM Routine 08/15/2022 1:50 AM EDT URINALYSIS WITH REFLEX CULTURE Routine 08/15/2022 1:50 AM EDT XR CHEST ONE VIEW Routine 08/15/2022 1:1 4 AM EDT COOX, POC Routine 08/15/2022 1:13 AM EDT HC BLOOD CULTURE- STAT 08/15/2022 1:1 0 AM EDT XR CHEST ONE VIEW Routine 08/15/2022 1:0 0 AM EDT HC MRSA DETECTION BY PCR Routine 08/15/2022 12:50 AM EDT TSH CASCADE Routine 08/15/2022 12:00 AM EDT GOLD TUBE HOLD Routine 08/15/2022 12:00 AM EDT HC PARTIAL THROMBOPLASTIN TIME Routine 08/15/2022 12:00 AM EDT HC PROTHROMBIN TIME Routine 08/15/2022 1 2:00 AM EDT BLOOD GAS ARTERIAL POC Routine 11:57 PM EDT VANCOMYCIN LEVEL, RANDOM Routine 08/14/2022 11:55 PM EDT HC TROPONIN T STAT 08/14/2022 11:55 PM EDT SCAN, PERIPHERAL BLOOD Routine 11:55 PM EDT HEMOGRAM Routine 08/14/2022 11:55 PM EDT DIFFERENTIAL, AUTOMATED Routine 08/14/2022 11:55 PM EDT HC BLOOD CULTURE- STAT 08/14/2022 11: 55 PM EDT HC CBC,PLT & AUTO DIFF Routine 11:55 PM EDT HC PHOSPHORUS, SERUM Routine 08/14/2022 11:55 PM EDT HC PROBNP Routine 08/14/2022 11:55 PM EDT HC MAGNESIUM, SERUM Routine 08/14/2022 1 1:55 PM EDT BASIC METABOLIC PANEL Routine 08/14/2022 11:55 PM EDT POINT OF CARE BLOOD GAS HISTORICAL Routine 08/14/2022 10:32 PM EDT FILM LIBRARY STORAGE ONLY DX CHEST Routine 08/14/2022 12:00 AM EDT FILM LIBRARY STORAGE ONLY CT HEAD Routine 08/13/2022 12:00 AM EDT FILM LIBRARY STORAGE ONLY DX CHEST Routine 08/12/2022 12:05 AM EDT FILM LIBRARY STORAGE ONLY CT CHEST Routine 08/12/2022 12:00 AM EDT FILM LIBRARY STORAGE ONLY DX CHEST Routine 08/08/2022 12:15 AM EDT FILM LIBRARY STORAGE ONLY DX PELVIS Routine 08/08/2022 12:10 AM EDT FILM LIBRARY STORAGE ONLY DX LOWER EXTREMITY Routine 08/08/2022 12:05 AM EDT documented in this encounter Results * SCAN DOC: LAB (09/28/2022 12:00 AM EDT) Narrative 09/28/2022 12:00 AM EDT Ordered by an unspecified provider. Scanning Provider MEDIA MGR SCAN EXT O RDR/RSLT * IR Suture Release (09/25/2022 9:56 AM EDT) Narrative RAD - 09/25/2022 10:16 AM EDT This exam is auto-finalizing. No interpretation was done. Moustapha Hart MD IMG IR ORDERABLES Performing Organization Address City/[facility]/ZIP Co de Phone Number [place], [place] * POCT Glucose (09/25/2022 6:26 AM EDT) Glucose, POC 155 65 - 199 mg/dL [facility] Comment: Supplemental ranges: <140 mg/dL before meals <180 mg/dL all other times of the day Blood 09/25/2022 6:26 AM EDT 09/25/2022 6:26 AM EDT Jose Mcleod MD POINT OF CARE TEST O RDERABLES Performing Organization Address [facility]/[place] Co de Phone Number [facility] [place] [address] * (ABNORMAL) Basic Metabolic Panel (non-fasting) (09/25/2022 3:11 AM EDT) Glucose 187 65 - 199 mg/dL [facility] Comment:Diabetes: >=200 mg/d L plus symptoms Blood Urea Nitrogen 32(H) 8 - 18 mg/dL [facility] Creatinine 0.62(L) 0.70 - 1.20 mg/dL [facility] Sodium 142 135 - 145 mmol/L [facility] Potassium 4.6 3.5 - 5.0 mmol/L [facility] Comment: Please note: ??Patients with WBC >100,000 may have falsely elevated Potassium levels. ??For accurate Potassium quantification in these patients send serum separator tube (gold top) for subsequent determinations. ??Contact the Clinical Chemistry Laboratory if there are any questions. Chloride 103 98 - 107 mmol/L [facility] Carbon Dioxide 31 22 - 31 mmol/L [facility] Anion Gap 8 5 - 15 mmol/L [facility] Calcium 9.8 8.5 - 10.5 mg/dL [facility] Est Glomerular Filtration Rate 101 >=60 mL/min/1. 73 m?? [facility] Comment: This patient's estimated [...] Narrative Resulting Agency Comment Spec In Lab Richard Pascal MD CHEMISTRY ORDERABLES Performing Organization Address [facility] Co de Phone Number [facility] [place] [address] * Phosphorus (09/25/2022 3:11 AM EDT) Phosphorus 4.0 2.5 - 4.5 mg/dL [facility] Blood 09/25/2022 3:11 AM EDT 09/25/2022 3:54 AM EDT Narrative Resulting Agency Comment Spec In Lab Richard Pascal MD CHEMISTRY ORDERABLES Performing Organization Address [facility] Co de Phone Number [facility] [place] [address] * Magnesium (09/25/2022 3:11 AM EDT) Magnesium 0.95 0.69 - 1.07 mmol/L [facility] Blood 09/25/2022 3:11 AM EDT 09/25/2022 3:54 AM EDT Narrative Resulting Agency Comment Spec In Lab Richard Pascal MD CHEMISTRY ORDERABLES Performing Organization Address [facility] Co de Phone Number [facility] [place] [address] * (ABNORMAL) POCT Glucose (09/24/2022 8:44 PM EDT) Glucose, POC 218(H) 65 - 199 mg/dL [facility] Comment: Supplemental ranges: <140 mg/dL before meals <180 mg/dL all other times of the day Blood 09/24/2022 8:44 PM EDT 09/24/2022 8:44 PM EDT Jose Mcleod MD POINT OF CARE TEST O RDERABLES [facility] [place] [address] * (ABNORMAL) POCT Glucose (09/24/2022 4:03 PM EDT) Glucose, POC 243(H) 65 - 199 mg/dL [facility] Comment: Supplemental ranges: <140 mg/dL before meals <180 mg/dL all other times of the day Blood 09/24/2022 4:03 PM EDT 09/24/2022 4:03 PM EDT Jose Mcleod MD POINT OF CARE TEST O RDERABLES Performing Organization Address [facility]/ZIP Co de Phone Number [facility] [place] [address] * (ABNORMAL) POCT Glucose (09/24/2022 11:44 AM EDT) Glucose, POC 272(H) 65 - 199 mg/dL [facility] Comment: Supplemental ranges: <140 mg/dL before meals <180 mg/dL all other times of the day Blood 09/24/2022 11:4 4 AM EDT 09/24/2022 11:44 AM EDT Jose Mcleod MD POINT OF CARE TEST O RDERABLES Performing Organization Address City/[facility]/[place] Co de Phone Number [facility] [place] [address] * POCT Glucose (09/24/2022 6:21 AM EDT) Glucose, POC 186 65 - 199 mg/dL [facility] Comment: Supplemental ranges: <140 mg/dL before meals <180 mg/dL all other times of the day Blood 09/24/2022 6:21 AM EDT 09/24/2022 6:21 AM EDT Jose Mcleod MD POINT OF CARE TEST O RDERABLES Performing Organization Address City/[facility]/ZIP Co de Phone Number [facility] [place] [address] * Lavender Tube HOLD (09/24/2022 5:31 AM EDT) Lavender Hold Sample in lab. [facility] Blood Venous Draw / Unknown 09/24/2022 5:31 AM EDT 09/24/2022 5:48 AM EDT Jigar Streeter MD HEMATOLOGY ORDERABLE S Performing Organization Address [facility] Co de Phone Number [facility] [place] [address] * (ABNORMAL) Basic Metabolic Panel (non-fasting) (09/24/2022 5:31 AM EDT) Glucose 188 65 - 199 mg/dL [facility] Comment:Diabetes: >=200 mg/d L plus symptoms Blood Urea Nitrogen 31(H) 8 - 18 mg/dL [facility] Creatinine 0.69(L) 0.70 - 1.20 mg/dL [facility] Sodium 139 135 - 145 mmol/L [facility] Potassium 4.5 3.5 - 5.0 mmol/L [facility] Comment: Please note: ??Patients with WBC >100,000 may have falsely elevated Potassium levels. ??For accurate Potassium quantification in these patients send serum separator tube (gold top) for subsequent determinations. ??Contact the Clinical Chemistry Laboratory if there are any questions. Chloride 100 98 - 107 mmol/L [facility] Carbon Dioxide 30 22 - 31 mmol/L [facility] Anion Gap 9 5 - 15 mmol/L [facility] Calcium 10.0 8.5 - 10.5 mg/dL [facility] Est Glomerular Filtration Rate 98 >=60 mL/min/1. 73 m?? [facility] Comment: This patient's estimated GFR was calculated using the 2021 CKD-EPI equation. The estimated GFR can vary [...] and symptoms in addition to eGFR. Blood 09/24/2022 5:31 AM EDT 09/24/2022 5:48 AM EDT Narrative Resulting Agency Comment Spec In Lab Richard Pascal MD CHEMISTRY ORDERABLES Performing Organization Address City/[facility]/ZIP Co de Phone Number [facility] [place] [address] * (ABNORMAL) Phosphorus (09/24/2022 5:31 AM EDT) Phosphorus 4.6(H) 2.5 - 4.5 mg/dL [facility] Blood 09/24/2022 5:31 AM EDT 09/24/2022 5:48 AM EDT Narrative Resulting Agency Comment Spec In Lab Richard Pascal MD CHEMISTRY ORDERABLES Performing Organization Address [facility] Co de Phone Number [facility] [place] [address] * Magnesium (09/24/2022 5:31 AM EDT) Magnesium 0.95 0.69 - 1.07 mmol/L [facility] Blood 09/24/2022 5:31 AM EDT 09/24/2022 5:48 AM EDT Narrative Resulting Agency Comment Spec In Lab Richard Pascal MD CHEMISTRY ORDERABLES Performing Organization Address City/[facility]/ZIP Co de Phone Number [facility] [place] [address] * (ABNORMAL) POCT Glucose (09/23/2022 7:58 PM EDT) Glucose, POC 226(H) 65 - 199 mg/dL [facility] Comment: Supplemental ranges: <140 mg/dL before meals <180 mg/dL all other times of the day Blood 09/23/2022 7:58 PM EDT 09/23/2022 7:58 PM EDT Jose Mcleod MD POINT OF CARE TEST O GABRIELLA Performing Organization Address City/[facility]/[place] Co de Phone Number [facility] [place] [address] * POCT Glucose (09/23/2022 4:40 PM EDT) Glucose, POC 94 65 - 199 mg/dL [facility] Comment: Supplemental ranges: <140 mg/dL before meals <180 mg/dL all other times of the day Blood 09/23/2022 4:40 PM EDT 09/23/2022 4:40 PM EDT Jose Mcleod MD POINT OF CARE TEST O GABRIELLA Performing Organization Address [facility] Co de Phone Number [facility] [place] [address] * (ABNORMAL) POCT Glucose (09/23/2022 2:00 PM EDT) Glucose, POC 276(H) 65 - 199 mg/dL [facility] Comment: Supplemental ranges: <140 mg/dL before meals <180 mg/dL all other times of the day Blood 09/23/2022 2:00 PM EDT 09/23/2022 2:00 PM EDT Jose Mcleod MD POINT OF CARE TEST O RDERAREYMUNDO Performing Organization Address City/[facility] Co de Phone Number [facility] [place] [address] * (ABNORMAL) POCT Glucose (09/23/2022 1:14 PM EDT) Glucose, POC 324(H) 65 - 199 mg/dL [facility] Comment: Supplemental ranges: <140 mg/dL before meals <180 mg/dL all other times of the day Blood 09/23/2022 1:14 PM EDT 09/23/2022 1:14 PM EDT Jose Mcleod MD POINT OF CARE TEST O RDERABLES Performing Organization Address City/[facility]/ZIP Co de Phone Number [facility] [place] [address] * (ABNORMAL) POCT Glucose (09/23/2022 11:37 AM EDT) Glucose, POC 291(H) 65 - 199 mg/dL [facility] Comment: Supplemental ranges: <140 mg/dL before meals <180 mg/dL all other times of the day Blood 09/23/2022 11:3 7 AM EDT 09/23/2022 11:37 AM EDT Jose Mcleod MD POINT OF CARE TEST O RDERAREYMUNDO Performing Organization Address [facility] Co de Phone Number [facility] [place] [address] * POCT Glucose (09/23/2022 6:24 AM EDT) Glucose, POC 191 65 - 199 mg/dL [facility] Comment: Supplemental ranges: <140 mg/dL before meals <180 mg/dL all other times of the day Blood 09/23/2022 6:24 AM EDT 09/23/2022 6:24 AM EDT Jose Mcleod MD POINT OF CARE TEST O RDERABLES Performing Organization Address City/[facility]/ZIP Co de Phone Number [facility] [place] [address] * Scan, Peripheral Blood (09/23/2022 5:02 AM EDT) Plat estimate Normal [facility] RBC Morphology Abnormal [facility] Microcyte 6-10 /HPF [facility] Hypochromia Moderate [facility] Ovalocytes 1-5 /HPF [facility] Target Cells 1-5 /HPF [facility] Blood 09/23/2022 5:02 AM EDT 09/23/2022 5:23 AM EDT Narrative Resulting Agency Comment Spec In Lab Alan Hunt MD HEMATOLOGY ORDERABLE S [facility] [place] [address] * (ABNORMAL) Differential, Automated (09/23/2022 5:02 AM EDT) Neutrophil % 51.8 % [facility] Neutrophil Absolute 3.50 1.70 - 6.10 x10(3)/mc L [facility] Lymph % 32.8 % [facility] Lymphocytes Abs 2.2 0.9 - 3.2 x10(3)/mc L [facility] Monocyte % 10.3 % [facility] Monocyte Abs 0.7 0.3 - 0.9 x10(3)/mc L [facility] Eos % 2.8 % [facility] Eosinophils Abs 0.2 0.0 - 0.4 x10(3)/mc L [facility] Basophil % 1.6 % [facility] Baso Absolute 0.1 0.0 - 0.1 x10(3)/mc L [facility] Immature Gran % 0.70 % [facility] Comment: Immature granulocytes(IG's)percentage and absolute count will include metamyelocytes, myelocytes, and promyelocytes. Blood smears from CBCs yielding IG's will be scanned manually for concordance. If this scan disagrees with the automated IG or if promyelocytes are noted, a manual differential will be performed. Immature Gran Absolute 0.05(H) 0.00 - 0.04 x10(3)/mc L [facility] Blood 09/23/2022 5:02 AM EDT 09/23/2022 5:23 AM EDT Narrative Resulting Agency Comment Spec In Lab Alan Hunt MD HEMATOLOGY ORDERABLE S [facility] [place] [address] * (ABNORMAL) Hemogram (09/23/2022 5:02 AM EDT) White Blood Cell 6.8 4.0 - 9.5 x10(3)/mc L [facility] Red Blood Cell 4.78 4.00 - 5.21 x10(6)/mc L [facility] Hemoglobin 11.5(L) 11.7 - 15.5 g/dL [facility] Hematocrit 38.4 35.7 - 45.8 % [facility] Mean Cell Volume 80.3(L) 82.6 - 94.4 fL [facility] Mean Cell Hemoglobin 24.1(L) 27.1 - 32.0 pg [facility] Mean Cell Hemoglobin Concentration 29.9(L) 31.7 - 35.0 g/dL [facility] Platelet 222 145 - 357 x10(3)/mc L [facility] RDW Standard Deviation 81.1(H) 37.0 - 46.0 fL [facility] RDW coefficient of variation 28.9(H) 11.5 - 14.1 % [facility] Mean Platelet Volume Not Measured 7.6 - 12.9 fL [facility] NRBC% auto 0.0 % [facility] NRBC Absolute 0.000 0.000 - 0.000 x10(3)/ L [facility] Blood 09/23/2022 5:02 AM EDT 09/23/2022 5:23 AM EDT Narrative Resulting Agency Comment Spec In Lab Alan Hunt MD HEMATOLOGY ORDERABLE S [facility] [place] [address] * (ABNORMAL) Basic Metabolic Panel (non-fasting) (09/23/2022 5:02 AM EDT) Glucose 203(H) 65 - 199 mg/dL [facility] Comment:Diabetes: >=200 mg/d L plus symptoms Blood Urea Nitrogen 28(H) 8 - 18 mg/dL [facility] Creatinine 0.57(L) 0.70 - 1.20 mg/dL [facility] Sodium 139 135 - 145 mmol/L [facility] Potassium 4.6 3.5 - 5.0 mmol/L [facility] Comment: Please note: ??Patients with WBC >100,000 may have falsely elevated Potassium levels. ??For accurate Potassium quantification in these patients send serum separator tube (gold top) for subsequent determinations. ??Contact the Clinical Chemistry Laboratory if there are any questions. Chloride 101 98 - 107 mmol/L [facility] Carbon Dioxide 30 22 - 31 mmol/L [facility] Anion Gap 8 5 - 15 mmol/L [facility] Calcium 10.0 8.5 - 10.5 mg/dL [facility] Est Glomerular Filtration Rate 103 >=60 mL/min/1. 73 m?? [facility] Comment: This patient's estimated GFR was [...] and symptoms in addition to eGFR. Blood 09/23/2022 5:02 AM EDT 09/23/2022 5:23 AM EDT Narrative Resulting Agency Comment Spec In Lab Richard Pascal MD CHEMISTRY ORDERABLES Performing Organization Address City/State/[place] Co de Phone Number [facility] [place] [address] * Phosphorus (09/23/2022 5:02 AM EDT) Phosphorus 4.4 2.5 - 4.5 mg/dL [facility] Blood 09/23/2022 5:02 AM EDT 09/23/2022 5:23 AM EDT Narrative Resulting Agency Comment Spec In Lab Richard Pascal MD CHEMISTRY ORDERABLES Performing Organization Address City/[facility]/ZIP Co de Phone Number [facility] [place] [address] * Magnesium (09/23/2022 5:02 AM EDT) Magnesium 0.91 0.69 - 1.07 mmol/L [facility] Blood 09/23/2022 5:02 AM EDT 09/23/2022 5:23 AM EDT Narrative Resulting Agency Comment Spec In Lab Richard Pascal MD CHEMISTRY ORDERABLES Performing Organization Address [facility]/[place] Co de Phone Number [facility] [place] [address] * POCT Glucose (09/22/2022 8:23 PM EDT) Glucose, POC 185 65 - 199 mg/dL [facility] Comment: Supplemental ranges: <140 mg/dL before meals <180 mg/dL all other times of the day Blood 09/22/2022 8:23 PM EDT 09/22/2022 8:23 PM EDT Jose Mcleod MD POINT OF CARE TEST O RDERABLES Performing Organization Address [facility]/[place] Co de Phone Number [facility] [place] [address] * (ABNORMAL) POCT Glucose (09/22/2022 4:35 PM EDT) Glucose, POC 220(H) 65 - 199 mg/dL [facility] Comment: Supplemental ranges: <140 mg/dL before meals <180 mg/dL all other times of the day Blood 09/22/2022 4:35 PM EDT 09/22/2022 4:35 PM EDT Jose Mcleod MD POINT OF CARE TEST O RDERABLES Performing Organization Address City/[facility]/[place] Co de Phone Number [facility] [place] [id number] * (ABNORMAL) POCT Glucose (09/22/2022 11:24 AM EDT) Glucose, POC 304(H) 65 - 199 mg/dL [facility] Comment: Supplemental ranges: <140 mg/dL before meals <180 mg/dL all other times of the day Blood 09/22/2022 11:2 4 AM EDT 09/22/2022 11:24 AM EDT Jose Mcleod MD POINT OF CARE TEST O RDERAREYMUNDO Performing Organization Address City/[facility]/[place] Co de Phone Number [facility] [place] [address] * POCT Glucose (09/22/2022 6:38 AM EDT) Glucose, POC 188 65 - 199 mg/dL [facility] Comment: Supplemental ranges: <140 mg/dL before meals <180 mg/dL all other times of the day Blood 09/22/2022 6:38 AM EDT 09/22/2022 6:38 AM EDT Jose Mcleod MD POINT OF CARE TEST O GABRIELLA Performing Organization Address [facility] Co de Phone Number [facility] [place] [address] * (ABNORMAL) Basic Metabolic Panel (non-fasting) (09/22/2022 5:44 AM EDT) Glucose Not Perf 65 - 199 [facility] Comment: Sample improperly processed prior to receipt. Diabetes: >=200 mg/dL plus symptoms Blood Urea Nitrogen 24(H) 8 - 18 mg/dL [facility] Creatinine 0.56(L) 0.70 - 1.20 mg/dL [facility] Sodium 139 135 - 145 mmol/L [facility] Potassium 4.7 3.5 - 5.0 mmol/L [facility] Comment: Please note: ??Patients with WBC >100,000 may have falsely elevated Potassium levels. ??For accurate Potassium quantification in these patients send serum separator tube (gold top) for subsequent determinations. ??Contact the Clinical Chemistry Laboratory if there are any questions. Chloride 101 98 - 107 mmol/L [facility] Carbon Dioxide 28 22 - 31 mmol/L [facility] Anion Gap 10 5 - 15 mmol/L [facility] Calcium 10.3 8.5 - 10.5 mg/dL [facility] Est Glomerular Filtration Rate 103 >=60 mL/min/1. 73 m?? [facility] Comment: This patient's estimated GFR was [...] and symptoms in addition to eGFR. Blood 09/22/2022 5:44 AM EDT 09/22/2022 7:46 AM EDT Narrative Resulting Agency Comment Spec In Lab Richard Pascal MD CHEMISTRY ORDERABLES Performing Organization Address City/[facility]/ZIP Co de Phone Number [facility] [place] [address] * Phosphorus (09/22/2022 5:44 AM EDT) Phosphorus 4.0 2.5 - 4.5 mg/dL [facility] Blood 09/22/2022 5:44 AM EDT 09/22/2022 7:46 AM EDT Narrative Resulting Agency Comment Spec In Lab Richard Pascal MD CHEMISTRY ORDERABLES Performing Organization Address [facility]/ZIP Co de Phone Number [facility] [place] [address] * Magnesium (09/22/2022 5:44 AM EDT) Magnesium 0.89 0.69 - 1.07 mmol/L [facility] Blood 09/22/2022 5:44 AM EDT 09/22/2022 7:46 AM EDT Narrative Resulting Agency Comment Spec In Lab Richard Pascal MD CHEMISTRY ORDERABLES Performing Organization Address [facility] Co de Phone Number [facility] [place] [address] * POCT Glucose (09/21/2022 8:05 PM EDT) Glucose, POC 168 65 - 199 mg/dL [facility] Comment: Supplemental ranges: <140 mg/dL before meals <180 mg/dL all other times of the day Blood 09/21/2022 8:05 PM EDT 09/21/2022 8:05 PM EDT Jose Mcleod MD POINT OF CARE TEST O RDERABLES Performing Organization Address [facility] Co de Phone Number [facility] [place] [address] * (ABNORMAL) POCT Glucose (09/21/2022 4:28 PM EDT) Glucose, POC 258(H) 65 - 199 mg/dL [facility] Comment: Supplemental ranges: <140 mg/dL before meals <180 mg/dL all other times of the day Blood 09/21/2022 4:28 PM EDT 09/21/2022 4:28 PM EDT Jose Mcleod MD POINT OF CARE TEST O RDERABLES Performing Organization Address [facility]/[place] Co de Phone Number [facility] [place] [address] * (ABNORMAL) POCT Glucose (09/21/2022 11:27 AM EDT) Glucose, POC 221(H) 65 - 199 mg/dL [facility] Comment: Supplemental ranges: <140 mg/dL before meals <180 mg/dL all other times of the day Blood 09/21/2022 11:2 7 AM EDT 09/21/2022 11:27 AM EDT Jose Mcleod MD POINT OF CARE TEST O RDERABLES Performing Organization Address [facility]/ZIP Co de Phone Number [facility] [place] [address] * (ABNORMAL) POCT Glucose (09/21/2022 7:00 AM EDT) Glucose, POC 211(H) 65 - 199 mg/dL [facility] Comment: Supplemental ranges: <140 mg/dL before meals <180 mg/dL all other times of the day Blood 09/21/2022 7:00 AM EDT 09/21/2022 7:00 AM EDT Olamide Stallings MD POINT OF CARE TEST O RDERABLES Performing Organization Address [facility] Co de Phone Number [facility] [place] [address] * (ABNORMAL) Basic Metabolic Panel (non-fasting) (09/21/2022 5:54 AM EDT) Glucose 203(H) 65 - 199 mg/dL [facility] Comment:Diabetes: >=200 mg/d L plus symptoms Blood Urea Nitrogen 23(H) 8 - 18 mg/dL [facility] Creatinine 0.51(L) 0.70 - 1.20 mg/dL [facility] Sodium 137 135 - 145 mmol/L [facility] Potassium 4.6 3.5 - 5.0 mmol/L [facility] Comment: Please note: ??Patients with WBC >100,000 may have falsely elevated Potassium levels. ??For accurate Potassium quantification in these patients send serum separator tube (gold top) for subsequent determinations. ??Contact the Clinical Chemistry Laboratory if there are any questions. Chloride 101 98 - 107 mmol/L [facility] Carbon Dioxide 27 22 - 31 mmol/L [facility] Anion Gap 9 5 - 15 mmol/L [facility] Calcium 9.8 8.5 - 10.5 mg/dL [facility] Est Glomerular Filtration Rate 105 >=60 mL/min/1. 73 m?? [facility] Comment: This patient's estimated GFR was [...] and symptoms in addition to eGFR. Blood 09/21/2022 5:54 AM EDT 09/21/2022 6:10 AM EDT Narrative Resulting Agency Comment Spec In Lab Richard Pascal MD CHEMISTRY ORDERABLES Performing Organization Address [facility] Co de Phone Number [facility] [place] [address] * Phosphorus (09/21/2022 5:54 AM EDT) Phosphorus 4.0 2.5 - 4.5 mg/dL [facility] Blood 09/21/2022 5:54 AM EDT 09/21/2022 6:10 AM EDT Narrative Resulting Agency Comment Spec In Lab Richard Pascal MD CHEMISTRY ORDERABLES Performing Organization Address [facility]/[place] Co de Phone Number [facility] [place] [address] * Magnesium (09/21/2022 5:54 AM EDT) Magnesium 0.84 0.69 - 1.07 mmol/L [facility] Blood 09/21/2022 5:54 AM EDT 09/21/2022 6:10 AM EDT Narrative Resulting Agency Comment Spec In Lab Richard Pascal MD CHEMISTRY ORDERABLES Performing Organization Address [facility] Co de Phone Number [facility] [place] [address] * POCT Glucose (09/20/2022 11:25 PM EDT) Glucose, POC 166 65 - 199 mg/dL [facility] Comment: Supplemental ranges: <140 mg/dL before meals <180 mg/dL all other times of the day Blood 09/20/2022 11:2 5 PM EDT 09/20/2022 11:25 PM EDT Olamide Stallings MD POINT OF CARE TEST O GABRIELLA [facility] [place] [address] * (ABNORMAL) POCT Glucose (09/20/2022 9:19 PM EDT) Glucose, POC 291(H) 65 - 199 mg/dL [facility] Comment: Supplemental ranges: <140 mg/dL before meals <180 mg/dL all other times of the day Blood 09/20/2022 9:19 PM EDT 09/20/2022 9:19 PM EDT Olamide Stallings MD POINT OF CARE TEST O GABRIELLA Performing Organization Address [facility]/ZIP Co de Phone Number [facility] [place] [address] * (ABNORMAL) POCT Glucose (09/20/2022 4:09 PM EDT) Glucose, POC 221(H) 65 - 199 mg/dL [facility] Comment: Supplemental ranges: <140 mg/dL before meals <180 mg/dL all other times of the day Blood 09/20/2022 4:09 PM EDT 09/20/2022 4:09 PM EDT Olamide Stallings MD POINT OF CARE TEST O RDERAREYMUNDO Performing Organization Address [facility]/ZIP Co de Phone Number [facility] [place] [address] * (ABNORMAL) POCT Glucose (09/20/2022 11:06 AM EDT) Glucose, POC 221(H) 65 - 199 mg/dL [facility] Comment: Supplemental ranges: <140 mg/dL before meals <180 mg/dL all other times of the day Blood 09/20/2022 11:0 6 AM EDT 09/20/2022 11:06 AM EDT Olamide Stallings MD POINT OF CARE TEST O RDERABLES [facility] [place] [address] * POCT Glucose (09/20/2022 5:39 AM EDT) Glucose, POC 187 65 - 199 mg/dL [facility] Comment: Supplemental ranges: <140 mg/dL before meals <180 mg/dL all other times of the day Blood 09/20/2022 5:39 AM EDT 09/20/2022 5:39 AM EDT Olamide Stallings MD POINT OF CARE TEST O RDERABLES Performing Organization Address [facility] Co de Phone Number [facility] [place] [address] * (ABNORMAL) Differential, Automated (09/20/2022 5:06 AM EDT) Neutrophil % 43.5 % [facility] Neutrophil Absolute 2.83 1.70 - 6.10 x10(3)/mc L [facility] Lymph % 40.2 % [facility] Lymphocytes Abs 2.6 0.9 - 3.2 x10(3)/mc L [facility] Monocyte % 11.1 % [facility] Monocyte Abs 0.7 0.3 - 0.9 x10(3)/mc L [facility] Eos % 2.8 % [facility] Eosinophils Abs 0.2 0.0 - 0.4 x10(3)/mc L [facility] Basophil % 1.5 % [facility] Baso Absolute 0.1 0.0 - 0.1 x10(3)/mc L [facility] Immature Gran % 0.90 % [facility] Comment: Immature granulocytes(IG's)percentage and absolute count will include metamyelocytes, myelocytes, and promyelocytes. Blood smears from CBCs yielding IG's will be scanned manually for concordance. If this scan disagrees with the automated IG or if promyelocytes are noted, a manual differential will be performed. Immature Gran Absolute 0.06(H) 0.00 - 0.04 x10(3)/mc L [facility] Blood 09/20/2022 5:06 AM EDT 09/20/2022 5:29 AM EDT Narrative Resulting Agency Comment Spec In Lab Alan Hunt MD HEMATOLOGY ORDERABLE S Performing Organization Address City/State/[place] Co de Phone Number [facility] [place] [address] * (ABNORMAL) Hemogram (09/20/2022 5:06 AM EDT) White Blood Cell 6.5 4.0 - 9.5 x10(3)/ L [facility] Red Blood Cell 4.68 4.00 - 5.21 x10(6)/[facility] Hemoglobin 11.1(L) 11.7 - 15.5 g/dL [facility] Hematocrit 36.8 35.7 - 45.8 % [facility] Mean Cell Volume 78.6(L) 82.6 - 94.4 fL [facility] Mean Cell Hemoglobin 23.7(L) 27.1 - 32.0 pg [facility] Mean Cell Hemoglobin Concentration 30.2(L) 31.7 - 35.0 g/dL [facility] Platelet 232 145 - 357 x10(3)/mc L [facility] RDW Standard Deviation 78.3(H) 37.0 - 46.0 fL [facility] RDW coefficient of variation 29.0(H) 11.5 - 14.1 % [facility] Mean Platelet Volume Not Measured 7.6 - 12.9 fL [facility] NRBC% auto 0.0 % [facility] NRBC Absolute 0.000 0.000 - 0.000 x10(3)/ L [facility] Blood 09/20/2022 5:06 AM EDT 09/20/2022 5:29 AM EDT Narrative Resulting Agency Comment Spec In Lab Alan Hunt MD HEMATOLOGY ORDERABLE S Performing Organization Address City/[facility]/ZIP Co de Phone Number [facility] [place] [address] * (ABNORMAL) Basic Metabolic Panel (non-fasting) (09/20/2022 5:06 AM EDT) Glucose 206(H) 65 - 199 mg/dL [facility] Comment:Diabetes: >=200 mg/d L plus symptoms Blood Urea Nitrogen 23(H) 8 - 18 mg/dL [facility] Creatinine 0.50(L) 0.70 - 1.20 mg/dL [facility] Sodium 135 135 - 145 mmol/L [facility] Potassium 4.9 3.5 - 5.0 mmol/L [facility] Comment: Please note: ??Patients with WBC >100,000 may have falsely elevated Potassium levels. ??For accurate Potassium quantification in these patients send serum separator tube (gold top) for subsequent determinations. ??Contact the Clinical Chemistry Laboratory if there are any questions. Chloride 99 98 - 107 mmol/L [facility] Carbon Dioxide 26 22 - 31 mmol/L [facility] Anion Gap 10 5 - 15 mmol/L [facility] Calcium 9.6 8.5 - 10.5 mg/dL [facility] Est Glomerular Filtration Rate 106 >=60 mL/min/1. 73 m?? [facility] Comment: This patient's estimated GFR was [...] and symptoms in addition to eGFR. Blood 09/20/2022 5:06 AM EDT 09/20/2022 5:29 AM EDT Narrative Resulting Agency Comment Spec In Lab Richard Pascal MD CHEMISTRY ORDERABLES Performing Organization Address [facility]/ZIP Co de Phone Number [facility] [place] [address] * Phosphorus (09/20/2022 5:06 AM EDT) Phosphorus 3.5 2.5 - 4.5 mg/dL [facility] Blood 09/20/2022 5:06 AM EDT 09/20/2022 5:29 AM EDT Narrative Resulting Agency Comment Spec In Lab Richard Pascal MD CHEMISTRY ORDERABLES Performing Organization Address City/[facility]/[place] Co de Phone Number [facility] [place] [address] * Magnesium (09/20/2022 5:06 AM EDT) Magnesium 0.83 0.69 - 1.07 mmol/L [facility] Blood 09/20/2022 5:06 AM EDT 09/20/2022 5:29 AM EDT Narrative Resulting Agency Comment Spec In Lab Richard Pascal MD CHEMISTRY ORDERABLES Performing Organization Address [facility] Co de Phone Number [facility] [place] [address] * (ABNORMAL) POCT Glucose (09/19/2022 10:53 PM EDT) Glucose, POC 209(H) 65 - 199 mg/dL [facility] Comment: Supplemental ranges: <140 mg/dL before meals <180 mg/dL all other times of the day Blood 09/19/2022 10:5 3 PM EDT 09/19/2022 10:53 PM EDT Olamide Stallings MD POINT OF CARE TEST O RDERABLES Performing Organization Address [facility] Co de Phone Number [facility] [place] [address] * (ABNORMAL) POCT Glucose (09/19/2022 8:51 PM EDT) Glucose, POC 329(H) 65 - 199 mg/dL [facility] Comment: Supplemental ranges: <140 mg/dL before meals <180 mg/dL all other times of the day Blood 09/19/2022 8:51 PM EDT 09/19/2022 8:51 PM EDT Olamide Stallings MD POINT OF CARE TEST O RDERAREYMUNDO Performing Organization Address City/[facility]/ZIP Co de Phone Number [facility] [place] [address] * (ABNORMAL) POCT Glucose (09/19/2022 7:57 PM EDT) Glucose, POC 275(H) 65 - 199 mg/dL [facility] Comment: Supplemental ranges: <140 mg/dL before meals <180 mg/dL all other times of the day Blood 09/19/2022 7:57 PM EDT 09/19/2022 7:57 PM EDT Olamide Stallings MD POINT OF CARE TEST O RDERAREYMUNDO Performing Organization Address [facility]/ZIP Co de Phone Number [facility] [place] [address] * (ABNORMAL) POCT Glucose (09/19/2022 4:02 PM EDT) Glucose, POC 221(H) 65 - 199 mg/dL [facility] Comment: Supplemental ranges: <140 mg/dL before meals <180 mg/dL all other times of the day Blood 09/19/2022 4:02 PM EDT 09/19/2022 4:02 PM EDT Olamide Stallings MD POINT OF CARE TEST O RDERAREYMUNDO Performing Organization Address City/[facility]/[place] Co de Phone Number [facility] [place] [address] * POCT Glucose (09/19/2022 11:50 AM EDT) Glucose, POC 194 65 - 199 mg/dL [facility] Comment: Supplemental ranges: <140 mg/dL before meals <180 mg/dL all other times of the day Blood 09/19/2022 11:5 0 AM EDT 09/19/2022 11:50 AM EDT Olamide Stallings MD POINT OF CARE TEST O RDERABLES [facility] [place] [address] * (ABNORMAL) POCT Glucose (09/19/2022 6:45 AM EDT) Glucose, POC 219(H) 65 - 199 mg/dL [facility] Comment: Supplemental ranges: <140 mg/dL before meals <180 mg/dL all other times of the day Blood 09/19/2022 6:45 AM EDT 09/19/2022 6:45 AM EDT Alan Hunt MD POINT OF CARE TEST O HUGHERAREYMUNDO Performing Organization Address City/[facility]/[place] Co de Phone Number [facility] [place] [address] * (ABNORMAL) Basic Metabolic Panel (non-fasting) (09/19/2022 4:39 AM EDT) Glucose 194 65 - 199 mg/dL [facility] Comment:Diabetes: >=200 mg/d L plus symptoms Blood Urea Nitrogen 21(H) 8 - 18 mg/dL [facility] Creatinine 0.52(L) 0.70 - 1.20 mg/dL [facility] Sodium 134(L) 135 - 145 mmol/L [facility] Potassium 4.6 3.5 - 5.0 mmol/L [facility] Comment: Please note: ??Patients with WBC >100,000 may have falsely elevated Potassium levels. ??For accurate Potassium quantification in these patients send serum separator tube (gold top) for subsequent determinations. ??Contact the Clinical Chemistry Laboratory if there are any questions. Chloride 98 98 - 107 mmol/L [facility] Carbon Dioxide 27 22 - 31 mmol/L [facility] Anion Gap 9 5 - 15 mmol/L [facility] Calcium 9.3 8.5 - 10.5 mg/dL [facility] Est Glomerular Filtration Rate 105 >=60 mL/min/1. 73 m?? [facility] Comment: This patient's estimated GFR [...] and symptoms in addition to eGFR. Blood 09/19/2022 4:39 AM EDT 09/19/2022 4:51 AM EDT Narrative Resulting Agency Comment Spec In Lab Richard Pascal MD CHEMISTRY ORDERABLES Performing Organization Address [facility] Co de Phone Number [facility] [place] [address] * Phosphorus (09/19/2022 4:39 AM EDT) Phosphorus 3.3 2.5 - 4.5 mg/dL [facility] Blood 09/19/2022 4:39 AM EDT 09/19/2022 4:51 AM EDT Narrative Resulting Agency Comment Spec In Lab Richard Pascal MD CHEMISTRY ORDERABLES Performing Organization Address [facility]/[place] Co de Phone Number [facility] [place] [address] * Magnesium (09/19/2022 4:39 AM EDT) Magnesium 0.82 0.69 - 1.07 mmol/L [facility] Blood 09/19/2022 4:39 AM EDT 09/19/2022 4:51 AM EDT Narrative Resulting Agency Comment Spec In Lab Richard Pascal MD CHEMISTRY ORDERABLES Performing Organization Address [facility]/ZIP Co de Phone Number [facility] [place] [address] * POCT Glucose (09/19/2022 3:49 AM EDT) Glucose, POC 184 65 - 199 mg/dL [facility] Comment: Supplemental ranges: <140 mg/dL before meals <180 mg/dL all other times of the day Blood 09/19/2022 3:49 AM EDT 09/19/2022 3:49 AM EDT Alan Hunt MD POINT OF CARE TEST O RDERABLES [facility] [place] [address] * POCT Glucose (09/18/2022 11:54 PM EDT) Glucose, POC 175 65 - 199 mg/dL [facility] Comment: Supplemental ranges: <140 mg/dL before meals <180 mg/dL all other times of the day Blood 09/18/2022 11:5 4 PM EDT 09/18/2022 11:54 PM EDT Alan Hunt MD POINT OF CARE TEST O RDERABLES Performing Organization Address City/[facility]/[place] Co de Phone Number [facility] [place] [address] * (ABNORMAL) POCT Glucose (09/18/2022 9:07 PM EDT) Glucose, POC 242(H) 65 - 199 mg/dL [facility] Comment: Supplemental ranges: <140 mg/dL before meals <180 mg/dL all other times of the day Blood 09/18/2022 9:07 PM EDT 09/18/2022 9:07 PM EDT Alan Hunt MD POINT OF CARE TEST O RDERABLES Performing Organization Address City/[facility]/[place] Co de Phone Number [facility] [place] [address] * POCT Glucose (09/18/2022 4:32 PM EDT) Glucose, POC 175 65 - 199 mg/dL [facility] Comment: Supplemental ranges: <140 mg/dL before meals <180 mg/dL all other times of the day Blood 09/18/2022 4:32 PM EDT 09/18/2022 4:32 PM EDT Alan Hunt MD POINT OF CARE TEST O RDERABLES [facility] [place] [address] * POCT Glucose (09/18/2022 2:14 PM EDT) Glucose, POC 188 65 - 199 mg/dL [facility] Comment: Supplemental ranges: <140 mg/dL before meals <180 mg/dL all other times of the day Blood 09/18/2022 2:14 PM EDT 09/18/2022 2:14 PM EDT Alan Hunt MD POINT OF CARE TEST O RDERABLES Performing Organization Address [facility]/[place] Co de Phone Number [facility] [place] [address] * (ABNORMAL) POCT Glucose (09/18/2022 11:45 AM EDT) Glucose, POC 247(H) 65 - 199 mg/dL [facility] Comment: Supplemental ranges: <140 mg/dL before meals <180 mg/dL all other times of the day Blood 09/18/2022 11:4 5 AM EDT 09/18/2022 11:45 AM EDT Alan Hunt MD POINT OF CARE TEST O RDERABLES Performing Organization Address City/[facility]/[place] Co de Phone Number [facility] [place] [address] * POCT Glucose (09/18/2022 6:47 AM EDT) Glucose, POC 197 65 - 199 mg/dL [facility] Comment: Supplemental ranges: <140 mg/dL before meals <180 mg/dL all other times of the day Blood 09/18/2022 6:47 AM EDT 09/18/2022 6:47 AM EDT Alan Hunt MD POINT OF CARE TEST O RDERABLES [facility] [place] [address] * (ABNORMAL) Basic Metabolic Panel (non-fasting) (09/18/2022 4:53 AM EDT) Glucose 197 65 - 199 mg/dL [facility] Comment:Diabetes: >=200 mg/d L plus symptoms Blood Urea Nitrogen 18 8 - 18 mg/dL [facility] Creatinine 0.53(L) 0.70 - 1.20 mg/dL [facility] Sodium 136 135 - 145 mmol/L [facility] Potassium 4.5 3.5 - 5.0 mmol/L [facility] Comment: Please note: ??Patients with WBC >100,000 may have falsely elevated Potassium levels. ??For accurate Potassium quantification in these patients send serum separator tube (gold top) for subsequent determinations. ??Contact the Clinical Chemistry Laboratory if there are any questions. Chloride 100 98 - 107 mmol/L [facility] Carbon Dioxide 27 22 - 31 mmol/L [facility] Anion Gap 9 5 - 15 mmol/L [facility] Calcium 9.5 8.5 - 10.5 mg/dL [facility] Est Glomerular Filtration Rate 105 >=60 mL/min/1. 73 m?? [facility] Comment: This patient's estimated GFR was [...] and symptoms in addition to eGFR. Blood 09/18/2022 4:53 AM EDT 09/18/2022 5:46 AM EDT Narrative Resulting Agency Comment Spec In Lab Richard Pascal MD CHEMISTRY ORDERABLES Performing Organization Address [facility] Co de Phone Number [facility] [place] [address] * Phosphorus (09/18/2022 4:53 AM EDT) Phosphorus 3.2 2.5 - 4.5 mg/dL [facility] Blood 09/18/2022 4:53 AM EDT 09/18/2022 5:46 AM EDT Narrative Resulting Agency Comment Spec In Lab Richard Pascal MD CHEMISTRY ORDERABLES Performing Organization Address [facility] de Phone Number [facility] [place] [address] * Magnesium (09/18/2022 4:53 AM EDT) Magnesium 0.79 0.69 - 1.07 mmol/L [facility] Blood 09/18/2022 4:53 AM EDT 09/18/2022 5:46 AM EDT Narrative Resulting Agency Comment Spec In Lab Richard Pascal MD CHEMISTRY ORDERABLES Performing Organization Address [facility] Co de Phone Number [facility] [place] [address] * POCT Glucose (09/18/2022 4:06 AM EDT) Glucose, POC 159 65 - 199 mg/dL [facility] Comment: Supplemental ranges: <140 mg/dL before meals <180 mg/dL all other times of the day Blood 09/18/2022 4:06 AM EDT 09/18/2022 4:06 AM EDT Alan Hunt MD POINT OF CARE TEST O RDERABLES Performing Organization Address City/[facility]/[place] Co de Phone Number [facility] [place] [address] * POCT Glucose (09/17/2022 11:02 PM EDT) Glucose, POC 141 65 - 199 mg/dL [facility] Comment: Supplemental ranges: <140 mg/dL before meals <180 mg/dL all other times of the day Blood 09/17/2022 11:0 2 PM EDT 09/17/2022 11:02 PM EDT Alan Hunt MD POINT OF CARE TEST O RDERAREYMUNDO [facility] [place] [address] * (ABNORMAL) POCT Glucose (09/17/2022 9:14 PM EDT) Glucose, POC 201(H) 65 - 199 mg/dL [facility] Comment: Supplemental ranges: <140 mg/dL before meals <180 mg/dL all other times of the day Blood 09/17/2022 9:14 PM EDT 09/17/2022 9:14 PM EDT Alan Hunt MD POINT OF CARE TEST O GABRIELLA [facility] [place] [address] * POCT Glucose (09/17/2022 4:14 PM EDT) Glucose, POC 173 65 - 199 mg/dL [facility] Comment: Supplemental ranges: <140 mg/dL before meals <180 mg/dL all other times of the day Blood 09/17/2022 4:14 PM EDT 09/17/2022 4:14 PM EDT Alan Hunt MD POINT OF CARE TEST O RDERAREYMUNDO [facility] [place] [address] * POCT Glucose (09/17/2022 11:34 AM EDT) Glucose, POC 181 65 - 199 mg/dL [facility] Comment: Supplemental ranges: <140 mg/dL before meals <180 mg/dL all other times of the day Blood 09/17/2022 11:3 4 AM EDT 09/17/2022 11:34 AM EDT Alan Hunt MD POINT OF CARE TEST O RDERABLES Performing Organization Address City/[facility]/ZIP Co de Phone Number [facility] [place] [address] * POCT Glucose (09/17/2022 6:57 AM EDT) Glucose, POC 146 65 - 199 mg/dL [facility] Comment: Supplemental ranges: <140 mg/dL before meals <180 mg/dL all other times of the day Blood 09/17/2022 6:57 AM EDT 09/17/2022 6:57 AM EDT Alan Hunt MD POINT OF CARE TEST O GABRIELLA Performing Organization Address [facility]/[place] Co de Phone Number [facility] [place] [address] * POCT Glucose (09/17/2022 3:07 AM EDT) Glucose, POC 149 65 - 199 mg/dL [facility] Comment: Supplemental ranges: <140 mg/dL before meals <180 mg/dL all other times of the day Blood 09/17/2022 3:07 AM EDT 09/17/2022 3:07 AM EDT Alan Hunt MD POINT OF CARE TEST O RDERABLES Performing Organization Address City/[facility]/[place] Co de Phone Number [facility] [place] [address] * POCT Glucose (09/17/2022 12:59 AM EDT) Glucose, POC 174 65 - 199 mg/dL [facility] Comment: Supplemental ranges: <140 mg/dL before meals <180 mg/dL all other times of the day Blood 09/17/2022 12:5 9 AM EDT 09/17/2022 12:59 AM EDT Alan Hunt MD POINT OF CARE TEST O GABRIELLA [facility] [place] [address] * POCT Glucose (09/16/2022 8:03 PM EDT) Glucose, POC 139 65 - 199 mg/dL [facility] Comment: Supplemental ranges: <140 mg/dL before meals <180 mg/dL all other times of the day Blood 09/16/2022 8:03 PM EDT 09/16/2022 8:03 PM EDT Alan Hunt MD POINT OF CARE TEST O GABRIELLA Performing Organization Address [facility]/ZIP Co de Phone Number [facility] [place] [address] * POCT Glucose (09/16/2022 4:22 PM EDT) Glucose, POC 155 65 - 199 mg/dL [facility] Comment: Supplemental ranges: <140 mg/dL before meals <180 mg/dL all other times of the day Blood 09/16/2022 4:22 PM EDT 09/16/2022 4:22 PM EDT Alan Hunt MD POINT OF CARE TEST O HUGHERAREYMUNDO Performing Organization Address City/[facility]/[place] Co de Phone Number [facility] [place] [address] * POCT Glucose (09/16/2022 11:21 AM EDT) Glucose, POC 170 65 - 199 mg/dL [facility] Comment: Supplemental ranges: <140 mg/dL before meals <180 mg/dL all other times of the day Blood 09/16/2022 11:2 1 AM EDT 09/16/2022 11:21 AM EDT Alan Hunt MD POINT OF C[place] [address] * POCT Glucose (09/16/2022 6:33 AM EDT) Glucose, POC 111 65 - 199 mg/dL [facility] Comment: Supplemental ranges: <140 mg/dL before meals <180 mg/dL all other times of the day Blood 09/16/2022 6:33 AM EDT 09/16/2022 6:33 AM EDT Balaji Mayer MD POINT OF CARE TEST O RDERABLES Performing Organization Address [facility] [address] * (ABNORMAL) Differential, Automated (09/16/2022 3:08 AM EDT) Neutrophil % 54.3 % [facility] Neutrophil Absolute 3.63 1.70 - 6.10 x10(3)/mc L [facility] Lymph % 28.2 % [facility] Lymphocytes Abs 1.9 0.9 - 3.2 x10(3)/mc L [facility] Monocyte % 12.4 % [facility] Monocyte Abs 0.8 0.3 - 0.9 x10(3)/mc L [facility] Eos % 2.8 % [facility] Eosinophils Abs 0.2 0.0 - 0.4 x10(3)/mc L [facility] Basophil % 1.3 % [facility] Baso Absolute 0.1 0.0 - 0.1 x10(3)/mc L [facility] Immature Gran % 1.00 % [facility] Comment: Immature granulocytes(IG's)percentage and absolute count will include metamyelocytes, myelocytes, and promyelocytes. Blood smears from CBCs yielding IG's will be scanned manually for concordance. If this scan disagrees with the automated IG or if promyelocytes are noted, a manual differential will be performed. Immature Gran Absolute 0.07(H) 0.00 - 0.04 x10(3)/mc L [facility] Blood 09/16/2022 3:08 AM EDT 09/16/2022 3:12 AM EDT Narrative Resulting Agency Comment Spec In Lab Jigar Streeter MD HEMATOLOGY ORDERABLE S Performing Organization Address City/[facility]/ZIP Co de Phone Number [facility] [place] [address] * (ABNORMAL) Hemogram (09/16/2022 3:08 AM EDT) White Blood Cell 6.7 4.0 - 9.5 x10(3)/[facility] Red Blood Cell 4.64 4.00 - 5.21 x10(6)/[facility] Hemoglobin 10.7(L) 11.7 - 15.5 g/dL [facility] Hematocrit 35.6(L) 35.7 - 45.8 % [facility] Mean Cell Volume 76.7(L) 82.6 - 94.4 fL [facility] Mean Cell Hemoglobin 23.1(L) 27.1 - 32.0 pg [facility] Mean Cell Hemoglobin Concentration 30.1(L) 31.7 - 35.0 g/dL [facility] Platelet 242 145 - 357 x10(3)/ L [facility] RDW Standard Deviation 74.3(H) 37.0 - 46.0 fL [facility] RDW coefficient of variation 28.6(H) 11.5 - 14.1 % [facility] Mean Platelet Volume 9.8 7.6 - 12.9 fL [facility] NRBC% auto 0.0 % [facility] NRBC Absolute 0.000 0.000 - 0.000 x10(3)/mc L [facility] Blood 09/16/2022 3:08 AM EDT 09/16/2022 3:12 AM EDT Narrative Resulting Agency Comment Spec In Lab Jigar Streeter MD HEMATOLOGY ORDERABLE S Performing Organization Address City/[facility]/ZIP Co de Phone Number [facility] [place] [address] * Phosphorus (09/16/2022 3:08 AM EDT) Phosphorus 3.0 2.5 - 4.5 mg/dL [facility] Blood 09/16/2022 3:08 AM EDT 09/16/2022 3:12 AM EDT Narrative Resulting Agency Comment Spec In Lab Richard Pascal MD CHEMISTRY ORDERABLES [facility] [place] [address] * Magnesium (09/16/2022 3:08 AM EDT) Magnesium 0.80 0.69 - 1.07 mmol/L [facility] Blood 09/16/2022 3:08 AM EDT 09/16/2022 3:12 AM EDT Narrative Resulting Agency Comment Spec In Lab Richard Pascal MD CHEMISTRY ORDERABLES Performing Organization Address [facility] Co de Phone Number [facility] [place] [address] * (ABNORMAL) Basic Metabolic Panel (non-fasting) (09/16/2022 3:08 AM EDT) Glucose 161 65 - 199 mg/dL [facility] Comment:Diabetes: >=200 mg/d L plus symptoms Blood Urea Nitrogen 15 8 - 18 mg/dL [facility] Creatinine 0.47(L) 0.70 - 1.20 mg/dL [facility] Sodium 140 135 - 145 mmol/L [facility] Potassium 4.0 3.5 - 5.0 mmol/L [facility] Comment: Please note: ??Patients with WBC >100,000 may have falsely elevated Potassium levels. ??For accurate Potassium quantification in these patients send serum separator tube (gold top) for subsequent determinations. ??Contact the Clinical Chemistry Laboratory if there are any questions. Chloride 103 98 - 107 mmol/L [facility] Carbon Dioxide 29 22 - 31 mmol/L [facility] Anion Gap 8 5 - 15 mmol/L [facility] Calcium 9.4 8.5 - 10.5 mg/dL [facility] Est Glomerular Filtration Rate 108 >=60 mL/min/1. 73 m?? [facility] Comment: This patient's estimated GFR was [...] and symptoms in addition to eGFR. Blood 09/16/2022 3:08 AM EDT 09/16/2022 3:12 AM EDT Narrative Resulting Agency Comment Spec In Lab Richard Pascal MD CHEMISTRY ORDERABLES Performing Organization Address City/[facility]/ZIP Co de Phone Number [facility] [place] [address] * POCT Glucose (09/16/2022 2:59 AM EDT) Glucose, POC 157 65 - 199 mg/dL [facility] Comment: Supplemental ranges: <140 mg/dL before meals <180 mg/dL all other times of the day Blood 09/16/2022 2:59 AM EDT 09/16/2022 2:59 AM EDT Balaji Mayer MD POINT OF CARE TEST O RDERABLES [facility] [place] [address] * POCT Glucose (09/15/2022 11:15 PM EDT) Glucose, POC 169 65 - 199 mg/dL [facility] Comment: Supplemental ranges: <140 mg/dL before meals <180 mg/dL all other times of the day Blood 09/15/2022 11:1 5 PM EDT 09/15/2022 11:15 PM EDT Balaji Mayer MD POINT OF CARE TEST O GABRIELLA Performing Organization Address City/[facility]/[place] Co de Phone Number [facility] [place] [address] * POCT Glucose (09/15/2022 7:17 PM EDT) Glucose, POC 153 65 - 199 mg/dL [facility] Comment: Supplemental ranges: <140 mg/dL before meals <180 mg/dL all other times of the day Blood 09/15/2022 7:17 PM EDT 09/15/2022 7:17 PM EDT Balaji Mayer MD POINT OF CARE TEST O GABRIELLA Performing Organization Address [facility] Co de Phone Number [facility] [place] [address] * POCT Glucose (09/15/2022 3:46 PM EDT) Glucose, POC 136 65 - 199 mg/dL [facility] Comment: Supplemental ranges: <140 mg/dL before meals <180 mg/dL all other times of the day Blood 09/15/2022 3:46 PM EDT 09/15/2022 3:46 PM EDT Balaji Mayer MD POINT OF CARE TEST O GABRIELLA Performing Organization Address [facility] Co de Phone Number [facility] [place] [address] * POCT Glucose (09/15/2022 11:15 AM EDT) Glucose, POC 133 65 - 199 mg/dL [facility] Comment: Supplemental ranges: <140 mg/dL before meals <180 mg/dL all other times of the day Blood 09/15/2022 11:1 5 AM EDT 09/15/2022 11:15 AM EDT Balaji Mayer MD POINT OF CARE TEST O RDERAREYMUNDO Performing Organization Address City/[facility]/ZIP Co de Phone Number [facility] [place] [address] * POCT Glucose (09/15/2022 6:30 AM EDT) Glucose, POC 95 65 - 199 mg/dL [facility] Comment: Supplemental ranges: <140 mg/dL before meals <180 mg/dL all other times of the day Blood 09/15/2022 6:30 AM EDT 09/15/2022 6:30 AM EDT Balaji Mayer MD POINT OF CARE TEST O GABRIELLA Performing Organization Address [facility]/[place] Co de Phone Number [facility] [place] [address] * (ABNORMAL) Differential, Automated (09/15/2022 3:00 AM EDT) [facility] Neutrophil % 46.9 % [facility] Neutrophil Absolute 2.78 1.70 - 6.10 x10(3)/mc L [facility] Lymph % 34.9 % [facility] Lymphocytes Abs 2.1 0.9 - 3.2 x10(3)/mc L [facility] Monocyte % 12.1 % [facility] Monocyte Abs 0.7 0.3 - 0.9 x10(3)/mc L [facility] Eos % 3.7 % [facility] Eosinophils Abs 0.2 0.0 - 0.4 x10(3)/mc L [facility] Basophil % 1.2 % [facility] Baso Absolute 0.1 0.0 - 0.1 x10(3)/mc L [facility] Immature Gran % 1.20 % [facility] Comment: Immature granulocytes(IG's)percentage and absolute count will include metamyelocytes, myelocytes, and promyelocytes. Blood smears from CBCs yielding IG's will be scanned manually for concordance. If this scan disagrees with the automated IG or if promyelocytes are noted, a manual differential will be performed. Immature Gran Absolute 0.07(H) 0.00 - 0.04 x10(3)/mc L [facility] Blood 09/15/2022 3:00 AM EDT 09/15/2022 3:07 AM EDT Narrative Resulting Agency Comment Spec In Lab Jigar Streeter MD HEMATOLOGY ORDERABLE S Performing Organization Address City/[facility]/ZIP Co de Phone Number [facility] [place] [address] * (ABNORMAL) Hemogram (09/15/2022 3:00 AM EDT) White Blood Cell 5.9 4.0 - 9.5 x10(3)/[facility] LAB[facility] Red Blood Cell 4.43 4.00 - 5.21 x10(6)/ L [facility] Hemoglobin 10.2(L) 11.7 - 15.5 g/dL [facility] Hematocrit 34.4(L) 35.7 - 45.8 % [facility] Mean Cell Volume 77.7(L) 82.6 - 94.4 fL [facility] Mean Cell Hemoglobin 23.0(L) 27.1 - 32.0 pg [facility] Mean Cell Hemoglobin Concentration 29.7(L) 31.7 - 35.0 g/dL [facility] Platelet 252 145 - 357 x10(3)/ L [facility] RDW Standard Deviation 76.5(H) 37.0 - 46.0 fL [facility] RDW coefficient of variation 29.1(H) 11.5 - 14.1 % [facility] Mean Platelet Volume 9.7 7.6 - 12.9 fL [facility] NRBC% auto 0.0 % [facility] NRBC Absolute 0.000 0.000 - 0.000 x10(3)/mc L [facility] Blood 09/15/2022 3:00 AM EDT 09/15/2022 3:07 AM EDT Narrative Resulting Agency Comment Spec In Lab Jigar Streeter MD HEMATOLOGY ORDERABLE S Performing Organization Address City/[facility]/ZIP Co de Phone Number [facility] [place] [address] * Phosphorus (09/15/2022 3:00 AM EDT) Phosphorus 2.6 2.5 - 4.5 mg/dL [facility] Blood 09/15/2022 3:00 AM EDT 09/15/2022 3:07 AM EDT Narrative Resulting Agency Comment Spec In Lab Richard Pascal MD CHEMISTRY ORDERABLES Performing Organization Address [facility]/[place] Co de Phone Number [facility] [place] [address] * Magnesium (09/15/2022 3:00 AM EDT) Magnesium 0.77 0.69 - 1.07 mmol/L [facility] Blood 09/15/2022 3:00 AM EDT 09/15/2022 3:07 AM EDT Narrative Resulting Agency Comment Spec In Lab Richard Pascal MD CHEMISTRY ORDERABLES Performing Organization Address [facility] de Phone Number [facility] [place] [address] * (ABNORMAL) Basic Metabolic Panel (non-fasting) (09/15/2022 3:00 AM EDT) Glucose 121 65 - 199 mg/dL [facility] Comment:Diabetes: >=200 mg/d L plus symptoms Blood Urea Nitrogen 11 8 - 18 mg/dL [facility] Creatinine 0.44(L) 0.70 - 1.20 mg/dL [facility] Sodium 140 135 - 145 mmol/L [facility] Potassium 4.0 3.5 - 5.0 mmol/L [facility] Comment: Please note: ??Patients with WBC >100,000 may have falsely elevated Potassium levels. ??For accurate Potassium quantification in these patients send serum separator tube (gold top) for subsequent determinations. ??Contact the Clinical Chemistry Laboratory if there are any questions. Chloride 102 98 - 107 mmol/L [facility] Carbon Dioxide 27 22 - 31 mmol/L [facility] Anion Gap 11 5 - 15 mmol/L [facility] Calcium 9.2 8.5 - 10.5 mg/dL [facility] Est Glomerular Filtration Rate 109 >=60 mL/min/1. 73 m?? [facility] Comment: This patient's estimated GFR was [...] and symptoms in addition to eGFR. Blood 09/15/2022 3:00 AM EDT 09/15/2022 3:07 AM EDT Narrative Resulting Agency Comment Spec In Lab Richard Pascal MD CHEMISTRY ORDERABLES Performing Organization Address [facility]/[place] Co de Phone Number [facility] [place] [address] * POCT Glucose (09/15/2022 2:58 AM EDT) Glucose, POC 114 65 - 199 mg/dL [facility] Comment: Supplemental ranges: <140 mg/dL before meals <180 mg/dL all other times of the day Blood 09/15/2022 2:58 AM EDT 09/15/2022 2:58 AM EDT Balaji Mayer MD POINT OF CARE TEST O RDERABLES Performing Organization Address City/[facility]/ZIP Co de Phone Number [facility] [place] [address] * POCT Glucose (09/14/2022 11:29 PM EDT) Glucose, POC 124 65 - 199 mg/dL [facility] Comment: Supplemental ranges: <140 mg/dL before meals <180 mg/dL all other times of the day Blood 09/14/2022 11:2 9 PM EDT 09/14/2022 11:29 PM EDT Balaji Mayer MD POINT OF CARE TEST O RDERABLES [facility] [place] [address] * XR Hip 2-3 Views Left (09/14/2022 10:02 PM EDT) Anatomical Region Laterality Modality Hip Left Digital Radiogra phy Impressions 09/15/2022 9:44 AM EDT 1. ??Healed left femoral neck fracture with short femoral neck 2. ??Maintained post reduction alignment and no hardware complications. I have personally reviewed the image(s) and the resident's interpretation and agree with the findings, Jeny Ken MD at 09/15/2022 9:44 AM Thank you for letting us participate in the care of this patient. ??If you are a health care provider and have any questions regarding this report, please contact the number below. ??For patients who have questions please contact the health acute care physician that requested your imaging first. ? Narrative 09/15/2022 9:44 AM EDT EXAMINATION: XR HIP 2-3 VIEWS LEFT CLINICAL HISTORY: Please include entire implant, s/p CMN TECHNIQUE: 2 views of the LEFT hip COMPARISON: Radiographs of the left hip 08/21/2022 FINDINGS: Unchanged appearance of 3 partially threaded cannulated screws in the femoral neck. Hardware is intact . No periprosthetic lucency or fracture. Remainder of the visualized bones are intact. Short femoral neck is redemonstrated. No collapse of femoral head. The hip joint space is preserved. No soft tissue abnormalities. Procedure Note Jeny Ken MD - 09/15/2022 EXAMINATION: XR HIP 2-3 VIEWS LEFT CLINICAL HISTORY: Please include entire implant, s/p CMN TECHNIQUE: 2 views of the LEFT hip COMPARISON: Radiographs of the left hip 08/21/2022 FINDINGS: Unchanged appearance of 3 partially threaded cannulated screws in thefemoral neck. Hardware is intact . No periprosthetic lucency or fracture.Remainder of the visualized bones are intact. Short femoral neck is redemonstrated. No collapse of femoral head. The hipjoint space is preserved. No soft tissue abnormalities. IMPRESSION 1. Healed left femoral neck fracture with short femoral neck 2. Maintained post reduction alignment and no hardware complications. I have personally reviewed the image(s) and the resident's interpretationand agree with the findings, Jeny Ken MD at 09/15/2022 9:44 AM Thank you for letting us participate in the care of this patient. If youare a health care provider and have any questions regarding this report,please contact the number below. For patients who have questions please contactthe health acute care physician that requested your imaging first. Balaji Mayer MD IMG DX ORDERABLES * POCT Glucose (09/14/2022 7:22 PM EDT) Glucose, POC 120 65 - 199 mg/dL [facility] Comment: Supplemental ranges: <140 mg/dL before meals <180 mg/dL all other times of the day Blood 09/14/2022 7:22 PM EDT 09/14/2022 7:22 PM EDT Balaji Mayer MD POINT OF CARE TEST O RDERABLES [facility] [place] [address] * POCT Glucose (09/14/2022 3:38 PM EDT) Glucose, POC 132 65 - 199 mg/dL [facility] Comment: Supplemental ranges: <140 mg/dL before meals <180 mg/dL all other times of the day Blood 09/14/2022 3:38 PM EDT 09/14/2022 3:38 PM EDT Balaji Mayer MD POINT OF CARE TEST O RDERABLES Performing Organization Address [facility]/[place] Co de Phone Number [facility] [place] [address] * POCT Glucose (09/14/2022 11:01 AM EDT) Glucose, POC 128 65 - 199 mg/dL [facility] Comment: Supplemental ranges: <140 mg/dL before meals <180 mg/dL all other times of the day Blood 09/14/2022 11:0 1 AM EDT 09/14/2022 11:01 AM EDT Blaaji Mayer MD POINT OF CARE TEST O RDERAREYMUNDO Performing Organization Address [facility]/[place] Co de Phone Number [facility] [place] [address] * POCT Glucose (09/14/2022 6:33 AM EDT) Glucose, POC 94 65 - 199 mg/dL [facility] Comment: Supplemental ranges: <140 mg/dL before meals <180 mg/dL all other times of the day Blood 09/14/2022 6:33 AM EDT 09/14/2022 6:33 AM EDT Chong Chao MD POINT OF CARE TEST O RDERABLES Performing Organization Address [facility]/[place] Co de Phone Number [facility] [place] [address] * (ABNORMAL) Differential, Automated (09/14/2022 3:33 AM EDT) Neutrophil % 49.0 % [facility] Neutrophil Absolute 2.69 1.70 - 6.10 x10(3)/mc L [facility] Lymph % 32.4 % [facility] Lymphocytes Abs 1.8 0.9 - 3.2 x10(3)/mc L [facility] Monocyte % 12.4 % [facility] Monocyte Abs 0.7 0.3 - 0.9 x10(3)/ L [facility] Eos % 4.2 % [facility] Eosinophils Abs 0.2 0.0 - 0.4 x10(3)/[facility]ORY Basophil % 1.1 % [facility] Baso Absolute 0.1 0.0 - 0.1 x10(3)/mc L [facility] Immature Gran % 0.90 % [facility] Comment: Immature granulocytes(IG's)percentage and absolute count will include metamyelocytes, myelocytes, and promyelocytes. Blood smears from CBCs yielding IG's will be scanned manually for concordance. If this scan disagrees with the automated IG or if promyelocytes are noted, a manual differential will be performed. Immature Gran Absolute 0.05(H) 0.00 - 0.04 x10(3)/ L [facility] Blood 09/14/2022 3:33 AM EDT 09/14/2022 5:07 AM EDT Narrative Resulting Agency Comment Spec In Lab Jigar Streeter MD HEMATOLOGY ORDERABLE S Performing Organization Address City/State/[place] Co de Phone Number [facility] [place] [address] * (ABNORMAL) Hemogram (09/14/2022 3:33 AM EDT) White Blood Cell 5.5 4.0 - 9.5 x10(3)/mc L [facility] Red Blood Cell 4.39 4.00 - 5.21 x10(6)/ L [facility] Hemoglobin 10.1(L) 11.7 - 15.5 g/dL [facility] Hematocrit 33.7(L) 35.7 - 45.8 % [facility] Mean Cell Volume 76.8(L) 82.6 - 94.4 fL [facility] Mean Cell Hemoglobin 23.0(L) 27.1 - 32.0 pg [facility] Mean Cell Hemoglobin Concentration 30.0(L) 31.7 - 35.0 g/dL [facility] Platelet 246 145 - 357 x10(3)/mc L [facility] RDW Standard Deviation 76.3(H) 37.0 - 46.0 fL [facility] RDW coefficient of variation 29.2(H) 11.5 - 14.1 % [facility] Mean Platelet Volume 10.2 7.6 - 12.9 fL [facility] NRBC% auto 0.0 % [facility] NRBC Absolute 0.000 0.000 - 0.000 x10(3)/mc L [facility] Blood 09/14/2022 3:33 AM EDT 09/14/2022 5:07 AM EDT Narrative Resulting Agency Comment Spec In Lab Jigar Streeter MD HEMATOLOGY ORDERABLE S Performing Organization Address [facility]/[place] [address] * Phosphorus (09/14/2022 3:33 AM EDT) Phosphorus 2.9 2.5 - 4.5 mg/dL [facility] Blood 09/14/2022 3:33 AM EDT 09/14/2022 5:07 AM EDT Narrative Resulting Agency Comment Spec In Lab Richard Pascal MD CHEMISTRY ORDERABLES Performing Organization Address City/[facility]/[place] Co de Phone Number [facility] [place] [id number] * Magnesium (09/14/2022 3:33 AM EDT) Magnesium 0.74 0.69 - 1.07 mmol/L [facility] Blood 09/14/2022 3:33 AM EDT 09/14/2022 5:07 AM EDT Narrative Resulting Agency Comment Spec In Lab Richard Pascal MD CHEMISTRY ORDERABLES Performing Organization Address City/[facility]/[place] Co de Phone Number [facility] [place] [address] * (ABNORMAL) Basic Metabolic Panel (non-fasting) (09/14/2022 3:33 AM EDT) Glucose Not Perf 65 - 199 [facility] Comment: Sample improperly processed prior to receipt. Diabetes: >=200 mg/dL plus symptoms Blood Urea Nitrogen 10 8 - 18 mg/dL [facility] Creatinine 0.45(L) 0.70 - 1.20 mg/dL [facility] Sodium 140 135 - 145 mmol/L [facility] Potassium 4.1 3.5 - 5.0 mmol/L [facility] Comment: Please note: ??Patients with WBC >100,000 may have falsely elevated Potassium levels. ??For accurate Potassium quantification in these patients send serum separator tube (gold top) for subsequent determinations. ??Contact the Clinical Chemistry Laboratory if there are any questions. Chloride 102 98 - 107 mmol/L [facility] Carbon Dioxide 28 22 - 31 mmol/L [facility] Anion Gap 10 5 - 15 mmol/L [facility] Calcium 9.1 8.5 - 10.5 mg/dL [facility] Est Glomerular Filtration Rate 109 >=60 mL/min/1. 73 m?? [facility] Comment: This patient's estimated GFR was [...] and symptoms in addition to eGFR. Blood 09/14/2022 3:33 AM EDT 09/14/2022 5:07 AM EDT Narrative Resulting Agency Comment Spec In Lab Richard Pascal MD CHEMISTRY ORDERABLES [facility] [address] [place] [address] * POCT Glucose (09/14/2022 3:29 AM EDT) Glucose, POC 109 65 - 199 mg/dL [facility] Comment: Supplemental ranges: <140 mg/dL before meals <180 mg/dL all other times of the day Blood 09/14/2022 3:29 AM EDT 09/14/2022 3:29 AM EDT Chong Chao MD POINT OF CARE TEST O GABRIELLA Performing Organization Address City/[facility]/ZIP Co de Phone Number [facility] [place] [address] * POCT Glucose (09/13/2022 11:30 PM EDT) Glucose, POC 147 65 - 199 mg/dL [facility] Comment: Supplemental ranges: <140 mg/dL before meals <180 mg/dL all other times of the day Blood 09/13/2022 11:3 0 PM EDT 09/13/2022 11:30 PM EDT Chong Chao MD POINT OF CARE TEST O GABRIELLA Performing Organization Address [facility] Co de Phone Number [facility] [place] [address] * POCT Glucose (09/13/2022 7:24 PM EDT) Glucose, POC 149 65 - 199 mg/dL [facility] Comment: Supplemental ranges: <140 mg/dL before meals <180 mg/dL all other times of the day Blood 09/13/2022 7:24 PM EDT 09/13/2022 7:24 PM EDT Chong Chao MD POINT OF CARE TEST O GABRIELLA Performing Organization Address City/[facility]/[place] Co de Phone Number [facility] [place] [address] * POCT Glucose (09/13/2022 3:40 PM EDT) Glucose, POC 126 65 - 199 mg/dL [facility] Comment: Supplemental ranges: <140 mg/dL before meals <180 mg/dL all other times of the day Blood 09/13/2022 3:40 PM EDT 09/13/2022 3:40 PM EDT Chong Chao MD POINT OF CARE TEST O RDERABLES [facility] [address] * (ABNORMAL) Basic Metabolic Panel (non-fasting) (09/13/2022 12:38 PM EDT) Pathologist [facility] Glucose 115 65 - 199 mg/dL [facility] Comment:Diabetes: >=200 mg/d L plus symptoms Blood Urea Nitrogen 8 8 - 18 mg/dL [facility] Creatinine 0.50(L) 0.70 - 1.20 mg/dL [facility] Sodium 140 135 - 145 mmol/L [facility] Potassium 3.8 3.5 - 5.0 mmol/L [facility] Comment: Please note: ??Patients with WBC >100,000 may have falsely elevated Potassium levels. ??For accurate Potassium quantification in these patients send serum separator tube (gold top) for subsequent determinations. ??Contact the Clinical Chemistry Laboratory if there are any questions. Chloride 101 98 - 107 mmol/L [facility] Carbon Dioxide 26 22 - 31 mmol/L [facility] Anion Gap 13 5 - 15 mmol/L [facility] Calcium 9.1 8.5 - 10.5 mg/dL [facility] Est Glomerular Filtration Rate 106 >=60 mL/min/1. 73 m?? [facility] Comment: This patient's estimated GFR was [...] and symptoms in addition to eGFR. Blood 09/13/2022 12:3 8 PM EDT 09/13/2022 12:45 PM EDT Narrative Resulting Agency Comment Spec In Lab Richard Pascal MD CHEMISTRY ORDERABLES Performing Organization Address [facility] Co de Phone Number [facility] [place] [address] * POCT Glucose (09/13/2022 12:08 PM EDT) Glucose, POC 113 65 - 199 mg/dL [facility] Comment: Supplemental ranges: <140 mg/dL before meals <180 mg/dL all other times of the day Blood 09/13/2022 12:0 8 PM EDT 09/13/2022 12:08 PM EDT Chong Chao MD POINT OF CARE TEST O RDERABLES Performing Organization Address [facility] Co de Phone Number [facility] [place] [address] * POCT Glucose (09/13/2022 6:31 AM EDT) Glucose, POC 87 65 - 199 mg/dL [facility] Comment: Supplemental ranges: <140 mg/dL before meals <180 mg/dL all other times of the day Blood 09/13/2022 6:31 AM EDT 09/13/2022 6:31 AM EDT Chong Chao MD POINT OF CARE TEST O RDERABLES Performing Organization Address [facility] Co de Phone Number [facility] [place] [address] * POCT Glucose (09/13/2022 3:16 AM EDT) Glucose, POC 90 65 - 199 mg/dL [facility] Comment: Supplemental ranges: <140 mg/dL before meals <180 mg/dL all other times of the day Blood 09/13/2022 3:16 AM EDT 09/13/2022 3:16 AM EDT Chong Caho MD POINT OF CARE [place] [address] * (ABNORMAL) Differential, Automated (09/13/2022 3:15 AM EDT) Neutrophil % 44.0 % [facility] Neutrophil Absolute 2.31 1.70 - 6.10 x10(3)/[facility] Lymph % 39.0 % [facility] Lymphocytes Abs 2.0 0.9 - 3.2 x10(3)/[facility] Monocyte % 10.7 % [facility] Monocyte Abs 0.6 0.3 - 0.9 x10(3)/[facility] Eos % 3.8 % [facility] Eosinophils Abs 0.2 0.0 - 0.4 x10(3)/[facility] Basophil % 1.5 % [facility] Baso Absolute 0.1 0.0 - 0.1 x10(3)/[facility] Immature Gran % 1.00 % [facility] Comment: Immature granulocytes(IG's)percentage and absolute count will include metamyelocytes, myelocytes, and promyelocytes. Blood smears from CBCs yielding IG's will be scanned manually for concordance. If this scan disagrees with the automated IG or if promyelocytes are noted, a manual differential will be performed. Immature Gran Absolute 0.05(H) 0.00 - 0.04 x10(3)/[facility] Blood 09/13/2022 3:15 AM EDT 09/13/2022 3:27 AM EDT Narrative Resulting Agency Comment Spec In Lab Jigar Streeter MD HEMATOLOGY ORDERABLE S Performing Organization Address City/[facility]/[place] [address] * (ABNORMAL) Hemogram (09/13/2022 3:15 AM EDT) White Blood Cell 5.2 4.0 - 9.5 x10(3)/[facility] Red Blood Cell 3.99(L) 4.00 - 5.21 x10(6)/mc L [facility] Hemoglobin 9.2(L) 11.7 - 15.5 g/dL [facility] Hematocrit 30.9(L) 35.7 - 45.8 % [facility] Mean Cell Volume 77.4(L) 82.6 - 94.4 fL [facility] Mean Cell Hemoglobin 23.1(L) 27.1 - 32.0 pg [facility] Mean Cell Hemoglobin Concentration 29.8(L) 31.7 - 35.0 g/dL [facility] Platelet 239 145 - 357 x10(3)/mc L [facility] RDW Standard Deviation 78.1(H) 37.0 - 46.0 fL [facility] RDW coefficient of variation 29.6(H) 11.5 - 14.1 % [facility] Mean Platelet Volume 9.8 7.6 - 12.9 fL [facility] NRBC% auto 0.0 % [facility] NRBC Absolute 0.000 0.000 - 0.000 x10(3)/mc L [facility] Blood 09/13/2022 3:15 AM EDT 09/13/2022 3:27 AM EDT Narrative Resulting Agency Comment Spec In Lab Jigar Streeter MD HEMATOLOGY ORDERABLE S [facility] [place] [address] * Phosphorus (09/13/2022 3:15 AM EDT) Phosphorus 3.0 2.5 - 4.5 mg/dL [facility] Blood 09/13/2022 3:15 AM EDT 09/13/2022 3:27 AM EDT Narrative Resulting Agency Comment Spec In Lab Richard Pascal MD CHEMISTRY ORDERABLES [facility] [place] [address] * Magnesium (09/13/2022 3:15 AM EDT) Magnesium 0.78 0.69 - 1.07 mmol/L [facility] Blood 09/13/2022 3:15 AM EDT 09/13/2022 3:27 AM EDT Narrative Resulting Agency Comment Spec In Lab Richard Pascal MD CHEMISTRY ORDERABLES [facility] [place] [address] * (ABNORMAL) Basic Metabolic Panel (non-fasting) (09/13/2022 3:15 AM EDT) Glucose 87 65 - 199 mg/dL [facility] Comment:Diabetes: >=200 mg/d L plus symptoms Blood Urea Nitrogen 8 8 - 18 mg/dL [facility] Creatinine 0.52(L) 0.70 - 1.20 mg/dL [facility] Sodium 141 135 - 145 mmol/L [facility] Potassium 3.6 3.5 - 5.0 mmol/L [facility] Comment: Please note: ??Patients with WBC >100,000 may have falsely elevated Potassium levels. ??For accurate Potassium quantification in these patients send serum separator tube (gold top) for subsequent determinations. ??Contact the Clinical Chemistry Laboratory if there are any questions. Chloride 103 98 - 107 mmol/L [facility] Carbon Dioxide 29 22 - 31 mmol/L [facility] Anion Gap 9 5 - 15 mmol/L [facility] Calcium 8.8 8.5 - 10.5 mg/dL [facility] Est Glomerular Filtration Rate 105 >=60 mL/min/1. 73 m?? [facility] Comment: This patient's estimated GFR was [...] and symptoms in addition to eGFR. Blood 09/13/2022 3:15 AM EDT 09/13/2022 3:27 AM EDT Narrative Resulting Agency Comment Spec In Lab Molina Flores MD CHEMISTRY ORDERABL ES Performing Organization Address [facility] Co de Phone Number [facility] [place] [address] * POCT Glucose (09/12/2022 11:29 PM EDT) Glucose, POC 105 65 - 199 mg/dL [facility] Comment: Supplemental ranges: <140 mg/dL before meals <180 mg/dL all other times of the day Blood 09/12/2022 11:2 9 PM EDT 09/12/2022 11:29 PM EDT Chong Chao MD POINT OF CARE TEST O RDERABLES Performing Organization Address [facility]/[place] Co de Phone Number [facility] [place] [address] * POCT Glucose (09/12/2022 7:24 PM EDT) Glucose, POC 121 65 - 199 mg/dL [facility] Comment: Supplemental ranges: <140 mg/dL before meals <180 mg/dL all other times of the day Blood 09/12/2022 7:24 PM EDT 09/12/2022 7:24 PM EDT Chong Chao MD POINT OF CARE TEST O RDERAREYMUNDO Performing Organization Address [facility] Co de Phone Number [facility] [place] [address] * (ABNORMAL) Basic Metabolic Panel (non-fasting) (09/12/2022 3:40 PM EDT) Glucose 103 65 - 199 mg/dL [facility] Comment:Diabetes: >=200 mg/d L plus symptoms Blood Urea Nitrogen 7(L) 8 - 18 mg/dL [facility] Creatinine 0.53(L) 0.70 - 1.20 mg/dL [facility] Sodium 140 135 - 145 mmol/L [facility] Potassium 4.0 3.5 - 5.0 mmol/L [facility] Comment: Please note: ??Patients with WBC >100,000 may have falsely elevated Potassium levels. ??For accurate Potassium quantification in these patients send serum separator tube (gold top) for subsequent determinations. ??Contact the Clinical Chemistry Laboratory if there are any questions. Chloride 102 98 - 107 mmol/L [facility] Carbon Dioxide 24 22 - 31 mmol/L [facility] Anion Gap 14 5 - 15 mmol/L [facility] Calcium 9.4 8.5 - 10.5 mg/dL [facility] Est Glomerular Filtration Rate 105 >=60 mL/min/1. 73 m?? [facility] Comment: This patient's estimated GFR was [...] and symptoms in addition to eGFR. Blood Venous Draw / Unknown 09/12/2022 3:40 PM EDT 09/12/2022 3:55 PM EDT Narrative Resulting Agency Comment Spec In Lab Jigar Streeter MD CHEMISTRY ORDERABLES [facility] [place] [address] * Magnesium (09/12/2022 3:40 PM EDT) Magnesium 0.93 0.69 - 1.07 mmol/L [facility] Blood 09/12/2022 3:40 PM EDT 09/12/2022 3:51 PM EDT Narrative Resulting Agency Comment Spec In Lab Richard Pascal MD CHEMISTRY ORDERABLES [facility] [place] [address] * POCT Glucose (09/12/2022 3:36 PM EDT) Glucose, POC 109 65 - 199 mg/dL [facility] Comment: Supplemental ranges: <140 mg/dL before meals <180 mg/dL all other times of the day Blood 09/12/2022 3:36 PM EDT 09/12/2022 3:36 PM EDT Chong Chao MD POINT OF CARE TEST O RDERABLES [facility] [place] [address] * POCT Glucose (09/12/2022 11:37 AM EDT) Glucose, POC 84 65 - 199 mg/dL [facility] Comment: Supplemental ranges: <140 mg/dL before meals <180 mg/dL all other times of the day Blood 09/12/2022 11:3 7 AM EDT 09/12/2022 11:37 AM EDT Chong Chao MD POINT OF CARE TEST O RDERABLES Performing Organization Address City/[facility]/ZIP Co de Phone Number [facility] [place] [address] * POCT Glucose (09/12/2022 6:33 AM EDT) Glucose, POC 98 65 - 199 mg/dL [facility] Comment: Supplemental ranges: <140 mg/dL before meals <180 mg/dL all other times of the day Blood 09/12/2022 6:33 AM EDT 09/12/2022 6:33 AM EDT Molina Flores MD POINT OF CARE TEST ORDERABLES [facility] [place] [address] * (ABNORMAL) Differential, Automated (09/12/2022 3:25 AM EDT) Neutrophil % 79.2 % [facility] Neutrophil Absolute 4.22 1.70 - 6.10 x10(3)/[facility] Lymph % 16.4 % [facility] Lymphocytes Abs 0.9 0.9 - 3.2 x10(3)/ L [facility] Monocyte % 3.2 % [facility] Monocyte Abs 0.2(L) 0.3 - 0.9 x10(3)/[facility] Eos % 0.0 % [facility] Eosinophils Abs 0.0 0.0 - 0.4 x10(3)/[facility] Basophil % 0.6 % [facility] Baso Absolute 0.0 0.0 - 0.1 x10(3)/[facility] Immature Gran % 0.60 % [facility] Comment: Immature granulocytes(IG's)percentage and absolute count will include metamyelocytes, myelocytes, and promyelocytes. Blood smears from CBCs yielding IG's will be scanned manually for concordance. If this scan disagrees with the automated IG or if promyelocytes are noted, a manual differential will be performed. Immature Gran Absolute 0.03 0.00 - 0.04 x10(3)/[facility] Blood 09/12/2022 3:25 AM EDT 09/12/2022 3:33 AM EDT Narrative Resulting Agency Comment Spec In Lab Jigar Streeter MD HEMATOLOGY ORDERABLE S [facility] [place] [address] * (ABNORMAL) Hemogram (09/12/2022 3:25 AM EDT) White Blood Cell 5.3 4.0 - 9.5 x10(3)/[facility] Red Blood Cell 4.23 4.00 - 5.21 x10(6)/[facility] Comment:Dimorphic RBC popula tion. Hemoglobin 9.6(L) 11.7 - 15.5 g/dL [facility] Hematocrit 32.4(L) 35.7 - 45.8 % [facility] Mean Cell Volume 76.6(L) 82.6 - 94.4 fL [facility] Mean Cell Hemoglobin 22.7(L) 27.1 - 32.0 pg [facility] Mean Cell Hemoglobin Concentration 29.6(L) 31.7 - 35.0 g/dL [facility] Platelet 241 145 - 357 x10(3)/mc L [facility] RDW Standard Deviation 78.0(H) 37.0 - 46.0 fL [facility] RDW coefficient of variation 29.6(H) 11.5 - 14.1 % [facility] Mean Platelet Volume 9.9 7.6 - 12.9 fL [facility] NRBC% auto 0.0 % [facility] NRBC Absolute 0.000 0.000 - 0.000 x10(3)/mc L [facility] Blood 09/12/2022 3:25 AM EDT 09/12/2022 3:33 AM EDT Narrative Resulting Agency Comment Spec In Lab Jigar Streeter MD HEMATOLOGY ORDERABLE S [facility] [place] [address] * Phosphorus (09/12/2022 3:25 AM EDT) Phosphorus 3.6 2.5 - 4.5 mg/dL [facility] Blood 09/12/2022 3:25 AM EDT 09/12/2022 3:33 AM EDT Narrative Resulting Agency Comment Spec In Lab Richard Pascal MD CHEMISTRY ORDERABLES Performing Organization Address City/[facility]/ZIP Co de Phone Number [facility] [place] [address] * (ABNORMAL) Basic Metabolic Panel (non-fasting) (09/12/2022 3:25 AM EDT) Glucose 123 65 - 199 mg/dL [facility] Comment:Diabetes: >=200 mg/d L plus symptoms Blood Urea Nitrogen 8 8 - 18 mg/dL [facility] Creatinine 0.49(L) 0.70 - 1.20 mg/dL [facility] Sodium 139 135 - 145 mmol/L [facility] Potassium 4.5 3.5 - 5.0 mmol/L [facility] Comment: result [id number] Please note: ??Patients with WBC >100,000 may have falsely elevated Potassium levels. ??For accurate Potassium quantification in these patients send serum separator tube (gold top) for subsequent determinations. ??Contact the Clinical Chemistry Laboratory if there are any questions. Chloride 104 98 - 107 mmol/L [facility] Carbon Dioxide 26 22 - 31 mmol/L [facility] Anion Gap 9 5 - 15 mmol/L [facility] Calcium 9.2 8.5 - 10.5 mg/dL [facility] Est Glomerular Filtration Rate 106 >=60 mL/min/1. 73 m?? [facility] Comment: This patient's estimated GFR was [...] and symptoms in addition to eGFR. Blood 09/12/2022 3:25 AM EDT 09/12/2022 3:33 AM EDT Narrative Resulting Agency Comment Spec In Lab Richard Pascal MD CHEMISTRY ORDERABLES [facility] [place] [address] * Magnesium (09/12/2022 3:25 AM EDT) Magnesium 0.76 0.69 - 1.07 mmol/L [facility] Blood 09/12/2022 3:25 AM EDT 09/12/2022 3:33 AM EDT Narrative Resulting Agency Comment Spec In Lab Richard Pascal MD CHEMISTRY ORDERABLES [facility] [place] [address] * POCT Glucose (09/12/2022 3:07 AM EDT) Glucose, POC 124 65 - 199 mg/dL [facility] Comment: Supplemental ranges: <140 mg/dL before meals <180 mg/dL all other times of the day Blood 09/12/2022 3:07 AM EDT 09/12/2022 3:07 AM EDT Molina Flores MD POINT OF CARE TEST ORDERABLES [facility] [place] [address] * POCT Glucose (09/11/2022 11:30 PM EDT) Glucose, POC 175 65 - 199 mg/dL [facility] Comment: Supplemental ranges: <140 mg/dL before meals <180 mg/dL all other times of the day Blood 09/11/2022 11:3 0 PM EDT 09/11/2022 11:30 PM EDT Molina Flores MD POINT OF CARE TEST ORDERABLES [facility] [place] [address] * POCT Glucose (09/11/2022 7:59 PM EDT) Glucose, POC 139 65 - 199 mg/dL [facility] Comment: Supplemental ranges: <140 mg/dL before meals <180 mg/dL all other times of the day Blood 09/11/2022 7:59 PM EDT 09/11/2022 7:59 PM EDT Molina Flores MD POINT OF CARE TEST ORDERABLES [facility] [place] [address] * POCT Glucose (09/11/2022 5:25 PM EDT) Glucose, POC 156 65 - 199 mg/dL [facility] Comment: Supplemental ranges: <140 mg/dL before meals <180 mg/dL all other times of the day Blood 09/11/2022 5:25 PM EDT 09/11/2022 5:25 PM EDT Molina Flores MD POINT OF CARE TEST ORDERABLES [facility] [address] [place] [address] * IR G-Tube Placement (09/11/2022 5:19 PM EDT) Anatomical Region Laterality Modality Chest X-Ray Angiograph y Narrative 09/11/2022 5:20 PM EDT IR PROCEDURE NOTE ?? Procedure: Gastrostomy tube placement. ?? Indication for Procedure:Per Ishan Zarate??is a 62 y.o.??female??with history of left femoral neck fracture, bipolar, alcohol use disorder, chronic pancreatitis, GERD complicated by esophagitis and Farrell's esophagus admitted with mixed shock with concern for stress cardiomyopathy with dysphagia noted postintubation failing modified barium swallow tests. ??Patient referred for percutaneous gastrostomy catheter placement with IR after failed endoscopic attempt due to esophageal stricture. ?? Procedure events and findings:??Patient was positioned supine on the procedure table under anesthesia. Prophylactic antibiotic Ancef 2g IV was administered. ??The epigastrium was prepared in sterile fashion after U/S to determine the left lateral and caudal??extent of the liver. ??Maximum sterile barrier technique was used throughout. ??A 4 Bulgarian glide catheter??was placed??as a??nasoenteric tube??under fluoroscopy with the aid of a Glidewire. ??Catheter was??used for insufflation of the stomach. ?? The skin over the stomach was infiltrated with 1% lidocaine for local anesthesia. ??An 18 ga needle was advanced under fluoroscopic guidance into the stomach with return of air and contrast injection showing gastric folds. ??A T anchor was deployed. ??Two additional T anchors were placed in the same manner. ??In the triangle formed by the T anchors, an 18ga needle was directed into the gastric lumen, confirmed with aspiration and contrast injection. ? Over an 0.035? ??guidewire, the tract was dilated using an 8 mm angioplasty balloon. ??A 16 Fr balloon retained gastrostomy tube was then placed. ??The retention balloon of the gastrostomy tube was filled with 5 cc of sterile water and contrast injection via the gastrostomy tube??confirmed location within the gastric lumen. ?? Medications: 1% Lidocaine 20ccs subcutaneous, and as per Anesthesia. ?Antibiotic Prophylaxis: Ancef 2 g IV. ?? Est Blood Loss: <5cc. ?? Complications: ??No immediate. ?? Impression: ?? 1. ??Placement of 16 Fr balloon retained nonlow-profile gastrostomy tube, ready for use. ?? 2. ??Gastric retention anchors to be released in 7 to 10 days. ?? Resident/Fellow: None. ?? Attending: IDr. Hart performed this procedure. Molina Flores MD IMG IR ORDERABLES * POCT Glucose (09/11/2022 11:35 AM EDT) Glucose, POC 154 65 - 199 mg/dL [facility] Comment: Supplemental ranges: <140 mg/dL before meals <180 mg/dL all other times of the day Blood 09/11/2022 11:3 5 AM EDT 09/11/2022 11:35 AM EDT Molina Flores MD POINT OF CARE TEST ORDERABLES [facility] [place] [address] * POCT Glucose (09/11/2022 6:47 AM EDT) Glucose, POC 147 65 - 199 mg/dL [facility] Comment: Supplemental ranges: <140 mg/dL before meals <180 mg/dL all other times of the day Blood 09/11/2022 6:47 AM EDT 09/11/2022 6:47 AM EDT Molina Flores MD POINT OF CARE TEST ORDERABLES Performing Organization Address City/[facility]/[place] [address] * Differential, Automated (09/11/2022 4:05 AM EDT) Neutrophil % 53.0 % [facility] Neutrophil Absolute 2.39 1.70 - 6.10 x10(3)/[facility] Lymph % 26.4 % [facility] Lymphocytes Abs 1.2 0.9 - 3.2 x10(3)/[facility] Monocyte % 12.4 % [facility] Monocyte Abs 0.6 0.3 - 0.9 x10(3)/[facility] Eos % 6.9 % [facility] Eosinophils Abs 0.3 0.0 - 0.4 x10(3)/[facility] Basophil % 0.9 % [facility] [facility] Baso Absolute 0.0 0.0 - 0.1 x10(3)/[facility] LAB[facility]ATORY Immature Gran % 0.40 % [facility] Comment: Immature granulocytes(IG's)percentage and absolute count will include metamyelocytes, myelocytes, and promyelocytes. Blood smears from CBCs yielding IG's will be scanned manually for concordance. If this scan disagrees with the automated IG or if promyelocytes are noted, a manual differential will be performed. Immature Gran Absolute 0.02 0.00 - 0.04 x10(3)/[facility] LABORATORY Blood 09/11/2022 4:05 AM EDT 09/11/2022 4:12 AM EDT Narrative Resulting Agency Comment Spec In Lab Jigar Streeter MD HEMATOLOGY ORDERABLE S Performing Organization Address [facility] [address] * (ABNORMAL) Hemogram (09/11/2022 4:05 AM EDT) White Blood Cell 4.5 4.0 - 9.5 x10(3)/mc L [facility] Red Blood Cell 3.93(L) 4.00 - 5.21 x10(6)/mc L [facility] Hemoglobin 9.0(L) 11.7 - 15.5 g/dL [facility] Hematocrit 30.2(L) 35.7 - 45.8 % [facility] Mean Cell Volume 76.8(L) 82.6 - 94.4 fL [facility] Mean Cell Hemoglobin 22.9(L) 27.1 - 32.0 pg [facility] Mean Cell Hemoglobin Concentration 29.8(L) 31.7 - 35.0 g/dL [facility] Platelet 219 145 - 357 x10(3)/mc L [facility] RDW Standard Deviation 78.3(H) 37.0 - 46.0 fL [facility] RDW coefficient of variation 30.1(H) 11.5 - 14.1 % [facility] Mean Platelet Volume 9.8 7.6 - 12.9 fL [facility] NRBC% auto 0.0 % [facility] NRBC Absolute 0.000 0.000 - 0.000 x10(3)/ L [facility] Blood 09/11/2022 4:05 AM EDT 09/11/2022 4:12 AM EDT Narrative Resulting Agency Comment Spec In Lab Jigar Streeter MD HEMATOLOGY ORDERABLE S Performing Organization Address City/State/[place] Co de Phone Number [facility] [place] [address] * Phosphorus (09/11/2022 4:05 AM EDT) Phosphorus 2.8 2.5 - 4.5 mg/dL [facility] Blood 09/11/2022 4:05 AM EDT 09/11/2022 4:12 AM EDT Narrative Resulting Agency Comment Spec In Lab Richard Pascal MD CHEMISTRY ORDERABLES Performing Organization Address City/[facility]/[place] Co de Phone Number [facility] [place] [address] * (ABNORMAL) Basic Metabolic Panel (non-fasting) (09/11/2022 4:05 AM EDT) Glucose 195 65 - 199 mg/dL [facility] Comment:Diabetes: >=200 mg/d L plus symptoms Blood Urea Nitrogen 6(L) 8 - 18 mg/dL [facility] Creatinine 0.44(L) 0.70 - 1.20 mg/dL [facility] Sodium 143 135 - 145 mmol/L [facility] Potassium 3.4(L) 3.5 - 5.0 mmol/L [facility] Comment: Please note: ??Patients with WBC >100,000 may have falsely elevated Potassium levels. ??For accurate Potassium quantification in these patients send serum separator tube (gold top) for subsequent determinations. ??Contact the Clinical Chemistry Laboratory if there are any questions. Chloride 107 98 - 107 mmol/L [facility] Carbon Dioxide 28 22 - 31 mmol/L [facility] Anion Gap 8 5 - 15 mmol/L [facility] Calcium 8.9 8.5 - 10.5 mg/dL [facility] Est Glomerular Filtration Rate 109 >=60 mL/min/1. 73 m?? [facility] Comment: This patient's estimated GFR was [...] and symptoms in addition to eGFR. Blood 09/11/2022 4:05 AM EDT 09/11/2022 4:12 AM EDT Narrative Resulting Agency Comment Spec In Lab Richard Pascal MD CHEMISTRY ORDERABLES Performing Organization Address [facility]/ZIP Co de Phone Number [facility] [place] [address] * POCT Glucose (09/11/2022 3:56 AM EDT) Glucose, POC 121 65 - 199 mg/dL [facility] Comment: Supplemental ranges: <140 mg/dL before meals <180 mg/dL all other times of the day Blood 09/11/2022 3:56 AM EDT 09/11/2022 3:56 AM EDT Molina Flores MD POINT OF CARE TEST ORDERABLES [facility] [place] [address] * POCT Glucose (09/11/2022 12:03 AM EDT) Glucose, POC 174 65 - 199 mg/dL [facility] Comment: Supplemental ranges: <140 mg/dL before meals <180 mg/dL all other times of the day Blood 09/11/2022 12:0 3 AM EDT 09/11/2022 12:03 AM EDT Molina Flores MD POINT OF CARE TEST ORDERABLES [facility] [place] [address] * POCT Glucose (09/10/2022 7:45 PM EDT) Glucose, POC 142 65 - 199 mg/dL [facility] Comment: Supplemental ranges: <140 mg/dL before meals <180 mg/dL all other times of the day Blood 09/10/2022 7:45 PM EDT 09/10/2022 7:45 PM EDT Molina Flores MD POINT OF CARE TEST ORDERABLES [facility] [place] [address] * POCT Glucose (09/10/2022 4:21 PM EDT) Glucose, POC 141 65 - 199 mg/dL [facility] Comment: Supplemental ranges: <140 mg/dL before meals <180 mg/dL all other times of the day Blood 09/10/2022 4:21 PM EDT 09/10/2022 4:21 PM EDT Molina Flores MD POINT OF CARE TEST ORDERABLES [facility] [place] [address] * POCT Glucose (09/10/2022 3:23 PM EDT) Glucose, POC 188 65 - 199 mg/dL [facility] Comment: Supplemental ranges: <140 mg/dL before meals <180 mg/dL all other times of the day Blood 09/10/2022 3:23 PM EDT 09/10/2022 3:23 PM EDT Molina Flores MD POINT OF CARE TEST ORDERABLES [facility] [place] [address] * POCT Glucose (09/10/2022 2:07 PM EDT) Glucose, POC 166 65 - 199 mg/dL [facility] Comment: Supplemental ranges: <140 mg/dL before meals <180 mg/dL all other times of the day Blood 09/10/2022 2:07 PM EDT 09/10/2022 2:07 PM EDT Molina Flores MD POINT OF CARE TEST ORDERABLES [facility] [place] [address] * POCT Glucose (09/10/2022 11:59 AM EDT) Glucose, POC 165 65 - 199 mg/dL [facility] Comment: Supplemental ranges: <140 mg/dL before meals <180 mg/dL all other times of the day Blood 09/10/2022 11:5 9 AM EDT 09/10/2022 11:59 AM EDT Molina Flores MD POINT OF CARE TEST ORDERABLES Performing Organization Address City/[facility]/[place] [address] * (ABNORMAL) Differential, Automated (09/10/2022 9:20 AM EDT) Neutrophil % 59.6 % [facility] Neutrophil Absolute 3.39 1.70 - 6.10 x10(3)/mc L [facility] Lymph % 21.4 % [facility] Lymphocytes Abs 1.2 0.9 - 3.2 x10(3)/mc L [facility] Monocyte % 11.4 % [facility] Monocyte Abs 0.6 0.3 - 0.9 x10(3)/mc L [facility] Eos % 6.2 % [facility] Eosinophils Abs 0.4 0.0 - 0.4 x10(3)/mc L [facility] Basophil % 0.5 % [facility] Baso Absolute 0.0 0.0 - 0.1 x10(3)/mc L [facility] Immature Gran % 0.90 % [facility] Comment: Immature granulocytes(IG's)percentage and absolute count will include metamyelocytes, myelocytes, and promyelocytes. Blood smears from CBCs yielding IG's will be scanned manually for concordance. If this scan disagrees with the automated IG or if promyelocytes are noted, a manual differential will be performed. Immature Gran Absolute 0.05(H) 0.00 - 0.04 x10(3)/mc L [facility] Blood 09/10/2022 9:20 AM EDT 09/10/2022 10:10 AM EDT Narrative Resulting Agency Comment Spec In Lab Chau Keith MD HEMATOLOGY ORDERABLE S Performing Organization Address City/[facility]/[place] [address] * (ABNORMAL) Hemogram (09/10/2022 9:20 AM EDT) White Blood Cell 5.7 4.0 - 9.5 x10(3)/[facility] LABORATORY Red Blood Cell 4.06 4.00 - 5.21 x10(6)/[facility] LAB[facility]ATORY Comment:Dimorphic RBC popula tion. Hemoglobin 9.2(L) 11.7 - 15.5 g/dL [facility] Hematocrit 31.4(L) 35.7 - 45.8 % [facility] Mean Cell Volume 77.3(L) 82.6 - 94.4 fL [facility] Mean Cell Hemoglobin 22.7(L) 27.1 - 32.0 pg [facility] Mean Cell Hemoglobin Concentration 29.3(L) 31.7 - 35.0 g/dL [facility] Platelet 229 145 - 357 x10(3)/ L [facility] RDW Standard Deviation Not Measured 37.0 - 46.0 fL [facility] RDW coefficient of variation Not Measured 11.5 - 14.1 % [facility] Mean Platelet Volume 10.5 7.6 - 12.9 fL [facility] NRBC% auto 0.0 % [facility] NRBC Absolute 0.000 0.000 - 0.000 x10(3)/[facility] LABORATORY Blood 09/10/2022 9:20 AM EDT 09/10/2022 10:10 AM EDT Narrative Resulting Agency Comment Spec In Lab Chau Keith MD HEMATOLOGY ORDERABLE S [facility] [place] [address] * POCT Glucose (09/10/2022 8:07 AM EDT) Glucose, POC 135 65 - 199 mg/dL [facility] Comment: Supplemental ranges: <140 mg/dL before meals <180 mg/dL all other times of the day Blood 09/10/2022 8:07 AM EDT 09/10/2022 8:07 AM EDT Molina Flores MD POINT OF CARE TEST ORDERABLES Performing Organization Address City/[facility]/[place] Co de Phone Number [facility] [place] [address] * POCT Glucose (09/10/2022 6:57 AM EDT) Glucose, POC 165 65 - 199 mg/dL [facility] Comment: Supplemental ranges: <140 mg/dL before meals <180 mg/dL all other times of the day Blood 09/10/2022 6:57 AM EDT 09/10/2022 6:57 AM EDT Mloina Flores MD POINT OF CARE TEST ORDERABLES Performing Organization Address [facility]/[place] Co de Phone Number [facility] [place] [address] * Phosphorus (09/10/2022 6:00 AM EDT) Phosphorus 3.3 2.5 - 4.5 mg/dL [facility] Blood 09/10/2022 6:00 AM EDT 09/10/2022 6:13 AM EDT Narrative Resulting Agency Comment Spec In Lab Richard Pascal MD CHEMISTRY ORDERABLES Performing Organization Address [facility]/[place] Co de Phone Number [facility] [place] [address] * (ABNORMAL) Magnesium (09/10/2022 6:00 AM EDT) Magnesium 0.67(L) 0.69 - 1.07 mmol/L [facility] Blood 09/10/2022 6:00 AM EDT 09/10/2022 6:13 AM EDT Narrative Resulting Agency Comment Spec In Lab Richard Pascal MD CHEMISTRY ORDERABLES Performing Organization Address [facility]/[place] Co de Phone Number [facility] [place] [address] * (ABNORMAL) Basic Metabolic Panel (non-fasting) (09/10/2022 6:00 AM EDT) Glucose 158 65 - 199 mg/dL [facility] Comment:Diabetes: >=200 mg/d L plus symptoms Blood Urea Nitrogen 11 8 - 18 mg/dL [facility] Creatinine 0.48(L) 0.70 - 1.20 mg/dL [facility] Sodium 140 135 - 145 mmol/L [facility] Potassium 3.7 3.5 - 5.0 mmol/L [facility] Comment: Please note: ??Patients with WBC >100,000 may have falsely elevated Potassium levels. ??For accurate Potassium quantification in these patients send serum separator tube (gold top) for subsequent determinations. ??Contact the Clinical Chemistry Laboratory if there are any questions. Chloride 105 98 - 107 mmol/L [facility] Carbon Dioxide 27 22 - 31 mmol/L [facility] Anion Gap 8 5 - 15 mmol/L [facility] Calcium 9.1 8.5 - 10.5 mg/dL [facility] Est Glomerular Filtration Rate 107 >=60 mL/min/1. 73 m?? [facility] Comment: This patient's estimated GFR was [...] and symptoms in addition to eGFR. Blood 09/10/2022 6:00 AM EDT 09/10/2022 6:13 AM EDT Narrative Resulting Agency Comment Spec In Lab Richard Pascal MD CHEMISTRY ORDERABLES [facility] [place] [address] * POCT Glucose (09/10/2022 3:40 AM EDT) Glucose, POC 160 65 - 199 mg/dL [facility] Comment: Supplemental ranges: <140 mg/dL before meals <180 mg/dL all other times of the day Blood 09/10/2022 3:40 AM EDT 09/10/2022 3:40 AM EDT Molina Flores MD POINT OF CARE TEST ORDERABLES Performing Organization Address [facility]/[place] Co de Phone Number [facility] [place] [address] * POCT Glucose (09/10/2022 1:44 AM EDT) Glucose, POC 145 65 - 199 mg/dL [facility] Comment: Supplemental ranges: <140 mg/dL before meals <180 mg/dL all other times of the day Blood 09/10/2022 1:44 AM EDT 09/10/2022 1:44 AM EDT Molina Flores MD POINT OF CARE TEST ORDERABLES Performing Organization Address [facility] de Phone Number [facility] [place] [address] * XR Abdomen 1 view (Generic) (09/10/2022 1:04 AM EDT) Anatomical Region Laterality Modality Abdomen N/A Digital Radiogra phy Impressions 09/10/2022 1:16 AM EDT Dobbhoff with tip at the level of the pyloric region. I have personally reviewed the image(s) and the resident's interpretation and agree with the findings, Camille Garcia MD at 09/10/2022 1:16 AM Thank you for letting us participate in the care of this patient. ??If you are a health care provider and have any questions regarding this report, please contact the number below. ??For patients who have questions please contact the health acute care physician that requested your imaging first. ? Electronically signed by: Camille Garcia MD, [facility] ([phone]), at 09/10/2022 1:16 AM Narrative 09/10/2022 1:16 AM EDT EXAMINATION: XR ABDOMEN 1 VIEW (GENERIC) CLINICAL HISTORY: confirm dobhoff tube placement TECHNIQUE: Single supine abdominal radiograph COMPARISON: 08/27/2022, 08/17/2022 FINDINGS: Double with tip projecting over the pyloric region. Enteric contrast opacifies the colon, reaching the level of the mid descending colon. Partially visualized left femoral neck fixation screws. No acute osseous abnormality. Procedure Note Camille Garcia MD - 09/10/2022 EXAMINATION: XR ABDOMEN 1 VIEW (GENERIC) CLINICAL HISTORY: confirm dobhoff tube placement TECHNIQUE: Single supine abdominal radiograph COMPARISON: 08/27/2022, 08/17/2022 FINDINGS: Double with tip projecting over the pyloric region. Enteric contrast opacifies the colon, reaching the level of the middescending colon. Partially visualized left femoral neck fixation screws. No acuteosseous abnormality. IMPRESSION Dobbhoff with tip at the level of the pyloric region. I have personally reviewed the image(s) and the resident's interpretationand agree with the findings, Camille Garcia MD at 09/10/2022 1:16 AM Thank you for letting us participate in the care of this patient. If youare a health care provider and have any questions regarding this report,please contact the number below. For patients who have questions please contactthe health acute care physician that requested your imaging first. Electronically signed by: Camille Garcia MD, [facility]([phone]), at 09/10/2022 1:16 AM Molina Flores MD IMG DX ORDERABLES * POCT Glucose (09/09/2022 8:09 PM EDT) [facility] Signature Glucose, POC 153 65 - 199 mg/dL [facility] Comment: Supplemental ranges: <140 mg/dL before meals <180 mg/dL all other times of the day Blood 09/09/2022 8:09 PM EDT 09/09/2022 8:09 PM EDT Mloina Flores MD POINT OF CARE TEST ORDERABLES [facility] [place] [address] * POCT Glucose (09/09/2022 5:20 PM EDT) Glucose, POC 146 65 - 199 mg/dL [facility] Comment: Supplemental ranges: <140 mg/dL before meals <180 mg/dL all other times of the day Blood 09/09/2022 5:20 PM EDT 09/09/2022 5:20 PM EDT Molina Flores MD POINT OF CARE TEST ORDERABLES [facility] [place] [address] * POCT Glucose (09/09/2022 1:18 PM EDT) Glucose, POC 138 65 - 199 mg/dL [facility] Comment: Supplemental ranges: <140 mg/dL before meals <180 mg/dL all other times of the day Blood 09/09/2022 1:18 PM EDT 09/09/2022 1:18 PM EDT Molina Flores MD POINT OF CARE TEST ORDERABLES [facility] [place] [address] * POCT Glucose (09/09/2022 10:10 AM EDT) Glucose, POC 167 65 - 199 mg/dL [facility] Comment: Supplemental ranges: <140 mg/dL before meals <180 mg/dL all other times of the day Blood 09/09/2022 10:1 0 AM EDT 09/09/2022 10:10 AM EDT Molina Flores MD POINT OF CARE TEST ORDERABLES [facility] [place] [address] * POCT Glucose (09/09/2022 6:41 AM EDT) Glucose, POC 150 65 - 199 mg/dL [facility] Comment: Supplemental ranges: <140 mg/dL before meals <180 mg/dL all other times of the day Blood 09/09/2022 6:41 AM EDT 09/09/2022 6:41 AM EDT Molina Flores MD POINT OF CARE TEST ORDERABLES Performing Organization Address City/[facility]/[place] Co de Phone Number [facility] [place] [address] * (ABNORMAL) Differential, Automated (09/09/2022 4:00 AM EDT) Neutrophil % 49.9 % [facility] Neutrophil Absolute 3.43 1.70 - 6.10 x10(3)/mc L [facility] Lymph % 27.9 % [facility] Lymphocytes Abs 1.9 0.9 - 3.2 x10(3)/mc L [facility] Monocyte % 10.2 % [facility] Monocyte Abs 0.7 0.3 - 0.9 x10(3)/mc L [facility] Eos % 10.0 % [facility] Eosinophils Abs 0.7(H) 0.0 - 0.4 x10(3)/mc L [facility] Basophil % 1.0 % [facility] Baso Absolute 0.1 0.0 - 0.1 x10(3)/mc L [facility] Immature Gran % 1.00 % [facility] Comment: Immature granulocytes(IG's)percentage and absolute count will include metamyelocytes, myelocytes, and promyelocytes. Blood smears from CBCs yielding IG's will be scanned manually for concordance. If this scan disagrees with the automated IG or if promyelocytes are noted, a manual differential will be performed. Immature Gran Absolute 0.07(H) 0.00 - 0.04 x10(3)/ L [facility] Blood 09/09/2022 4:00 AM EDT 09/09/2022 4:18 AM EDT Narrative Resulting Agency Comment Spec In Lab Jigar Streeter MD HEMATOLOGY ORDERABLE S [facility] [place] [address] * (ABNORMAL) Hemogram (09/09/2022 4:00 AM EDT) White Blood Cell 6.9 4.0 - 9.5 x10(3)/[facility] LABORATORY Red Blood Cell 4.37 4.00 - 5.21 x10(6)/[facility] LABORATORY Comment:Dimorphic RBC popula tion. Hemoglobin 9.8(L) 11.7 - 15.5 g/dL [facility] Hematocrit 33.4(L) 35.7 - 45.8 % [facility] Mean Cell Volume 76.4(L) 82.6 - 94.4 fL [facility] Mean Cell Hemoglobin 22.4(L) 27.1 - 32.0 pg [facility] Mean Cell Hemoglobin Concentration 29.3(L) 31.7 - 35.0 g/dL [facility] Platelet 264 145 - 357 x10(3)/[facility] LABORATORY RDW Standard Deviation 79.7(H) 37.0 - 46.0 fL [facility] RDW coefficient of variation 30.7(H) 11.5 - 14.1 % [facility] Mean Platelet Volume 10.0 7.6 - 12.9 fL [facility] NRBC% auto 0.0 % [facility] NRBC Absolute 0.000 0.000 - 0.000 x10(3)/[facility] LABORATORY Blood 09/09/2022 4:00 AM EDT 09/09/2022 4:18 AM EDT Narrative Resulting Agency Comment Spec In Lab Jigar Streeter MD HEMATOLOGY ORDERABLE S Performing Organization Address City/[facility]/ZIP Co de Phone Number [facility] [place] [address] * (ABNORMAL) Basic Metabolic Panel (non-fasting) (09/09/2022 4:00 AM EDT) Glucose 139 65 - 199 mg/dL [facility] Comment:Diabetes: >=200 mg/d L plus symptoms Blood Urea Nitrogen 24(H) 8 - 18 mg/dL [facility] Creatinine 0.56(L) 0.70 - 1.20 mg/dL [facility] Sodium 140 135 - 145 mmol/L [facility] Potassium 4.3 3.5 - 5.0 mmol/L [facility] Comment: Please note: ??Patients with WBC >100,000 may have falsely elevated Potassium levels. ??For accurate Potassium quantification in these patients send serum separator tube (gold top) for subsequent determinations. ??Contact the Clinical Chemistry Laboratory if there are any questions. Chloride 102 98 - 107 mmol/L [facility] Carbon Dioxide 28 22 - 31 mmol/L [facility] Anion Gap 10 5 - 15 mmol/L [facility] Calcium 10.1 8.5 - 10.5 mg/dL [facility] Est Glomerular Filtration Rate 103 >=60 mL/min/1. 73 m?? [facility] Comment: This patient's estimated GFR was [...] and symptoms in addition to eGFR. Blood 09/09/2022 4:00 AM EDT 09/09/2022 4:18 AM EDT Narrative Resulting Agency Comment Spec In Lab Richard Pascal MD CHEMISTRY ORDERABLES [facility] [place] [address] * Phosphorus (09/09/2022 4:00 AM EDT) Phosphorus 4.2 2.5 - 4.5 mg/dL [facility] Blood 09/09/2022 4:00 AM EDT 09/09/2022 4:18 AM EDT Narrative Resulting Agency Comment Spec In Lab Richard Pascal MD CHEMISTRY ORDERABLES Performing Organization Address City/[facility]/[place] Co de Phone Number [facility] [place] [address] * Magnesium (09/09/2022 4:00 AM EDT) Magnesium 0.86 0.69 - 1.07 mmol/L [facility] Blood 09/09/2022 4:00 AM EDT 09/09/2022 4:18 AM EDT Narrative Resulting Agency Comment Spec In Lab Richard Pascal MD CHEMISTRY ORDERABLES Performing Organization Address [facility]/[place] Co de Phone Number [facility] [place] [address] * POCT Glucose (09/09/2022 3:49 AM EDT) Glucose, POC 140 65 - 199 mg/dL [facility] Comment: Supplemental ranges: <140 mg/dL before meals <180 mg/dL all other times of the day Blood 09/09/2022 3:49 AM EDT 09/09/2022 3:49 AM EDT Molina Flores MD POINT OF CARE TEST ORDERABLES Performing Organization Address [facility]/[place] Co de Phone Number [facility] [place] [address] * POCT Glucose (09/08/2022 11:53 PM EDT) Glucose, POC 116 65 - 199 mg/dL [facility] Comment: Supplemental ranges: <140 mg/dL before meals <180 mg/dL all other times of the day Blood 09/08/2022 11:5 3 PM EDT 09/08/2022 11:53 PM EDT Molina Flores MD POINT OF CARE TEST ORDERABLES [facility] [place] [address] * POCT Glucose (09/08/2022 7:54 PM EDT) Glucose, POC 182 65 - 199 mg/dL [facility] Comment: Supplemental ranges: <140 mg/dL before meals <180 mg/dL all other times of the day Blood 09/08/2022 7:54 PM EDT 09/08/2022 7:54 PM EDT Molina Flores MD POINT OF CARE TEST ORDERABLES [facility] [place] [address] * POCT Glucose (09/08/2022 4:57 PM EDT) Glucose, POC 119 65 - 199 mg/dL [facility] Comment: Supplemental ranges: <140 mg/dL before meals <180 mg/dL all other times of the day Blood 09/08/2022 4:57 PM EDT 09/08/2022 4:57 PM EDT Molina Flores MD POINT OF CARE TEST ORDERABLES [facility] [place] [address] * POCT Glucose (09/08/2022 6:53 AM EDT) Glucose, POC 134 65 - 199 mg/dL [facility] Comment: Supplemental ranges: <140 mg/dL before meals <180 mg/dL all other times of the day Blood 09/08/2022 6:53 AM EDT 09/08/2022 6:53 AM EDT Richard Pascal MD POINT OF CARE TEST O RDERABLES [facility] [place] [address] * POCT Glucose (09/08/2022 3:57 AM EDT) Glucose, POC 165 65 - 199 mg/dL [facility] Comment: Supplemental ranges: <140 mg/dL before meals <180 mg/dL all other times of the day Blood 09/08/2022 3:57 AM EDT 09/08/2022 3:57 AM EDT Richard Pascal MD POINT OF CARE TEST O RDERABLES Performing Organization Address [facility] Co de Phone Number [facility] [place] [address] * (ABNORMAL) Differential, Automated (09/08/2022 2:00 AM EDT) Neutrophil % 49.5 % [facility] Neutrophil Absolute 3.42 1.70 - 6.10 x10(3)/mc L [facility] Lymph % 28.0 % [facility] Lymphocytes Abs 1.9 0.9 - 3.2 x10(3)/mc L [facility] Monocyte % 12.2 % [facility] Monocyte Abs 0.8 0.3 - 0.9 x10(3)/mc L [facility] Eos % 8.7 % [facility] Eosinophils Abs 0.6(H) 0.0 - 0.4 x10(3)/mc L [facility] Basophil % 0.9 % [facility] Baso Absolute 0.1 0.0 - 0.1 x10(3)/mc L [facility] Immature Gran % 0.70 % [facility] Comment: Immature granulocytes(IG's)percentage and absolute count will include metamyelocytes, myelocytes, and promyelocytes. Blood smears from CBCs yielding IG's will be scanned manually for concordance. If this scan disagrees with the automated IG or if promyelocytes are noted, a manual differential will be performed. Immature Gran Absolute 0.05(H) 0.00 - 0.04 x10(3)/[facility] Blood 09/08/2022 2:00 AM EDT 09/08/2022 2:13 AM EDT Narrative Resulting Agency Comment Spec In Lab Jigar Streeter MD HEMATOLOGY ORDERABLE S [facility] [place] [address] * (ABNORMAL) Hemogram (09/08/2022 2:00 AM EDT) White Blood Cell 6.9 4.0 - 9.5 x10(3)/[facility] LABORATORY Red Blood Cell 4.34 4.00 - 5.21 x10(6)/[facility] Comment:Dimorphic RBC popula tion. Hemoglobin 9.8(L) 11.7 - 15.5 g/dL [facility] Hematocrit 32.6(L) 35.7 - 45.8 % [facility] Mean Cell Volume 75.1(L) 82.6 - 94.4 fL [facility] Mean Cell Hemoglobin 22.6(L) 27.1 - 32.0 pg [facility] Mean Cell Hemoglobin Concentration 30.1(L) 31.7 - 35.0 g/dL [facility] Platelet 300 145 - 357 x10(3)/[facility] LABORATORY RDW Standard Deviation Not Measured 37.0 - 46.0 fL [facility] RDW coefficient of variation Not Measured 11.5 - 14.1 % [facility] Mean Platelet Volume 9.5 7.6 - 12.9 fL [facility] NRBC% auto 0.0 % [facility] NRBC Absolute 0.000 0.000 - 0.000 x10(3)/[facility] Blood 09/08/2022 2:00 AM EDT 09/08/2022 2:13 AM EDT Narrative Resulting Agency Comment Spec In Lab Jigar Streeter MD HEMATOLOGY ORDERABLE S Performing Organization Address [facility] Co de Phone Number [facility] [place] [address] * (ABNORMAL) Basic Metabolic Panel (non-fasting) (09/08/2022 2:00 AM EDT) Glucose 142 65 - 199 mg/dL [facility] Comment:Diabetes: >=200 mg/d L plus symptoms Blood Urea Nitrogen 25(H) 8 - 18 mg/dL [facility] Creatinine 0.52(L) 0.70 - 1.20 mg/dL [facility] Sodium 142 135 - 145 mmol/L [facility] Potassium 4.6 3.5 - 5.0 mmol/L [facility] Comment: Please note: ??Patients with WBC >100,000 may have falsely elevated Potassium levels. ??For accurate Potassium quantification in these patients send serum separator tube (gold top) for subsequent determinations. ??Contact the Clinical Chemistry Laboratory if there are any questions. Chloride 103 98 - 107 mmol/L [facility] Carbon Dioxide 30 22 - 31 mmol/L [facility] Anion Gap 9 5 - 15 mmol/L [facility] Calcium 10.0 8.5 - 10.5 mg/dL [facility] Est Glomerular Filtration Rate 105 >=60 mL/min/1. 73 m?? [facility] Comment: This patient's estimated GFR was [...] and symptoms in addition to eGFR. Blood 09/08/2022 2:00 AM EDT 09/08/2022 2:13 AM EDT Narrative Resulting Agency Comment Spec In Lab Richard Pascal MD CHEMISTRY ORDERABLES Performing Organization Address [facility]/ZIP Co de Phone Number [facility] [place] [address] * Phosphorus (09/08/2022 2:00 AM EDT) Phosphorus 3.2 2.5 - 4.5 mg/dL [facility] Blood 09/08/2022 2:00 AM EDT 09/08/2022 2:13 AM EDT Narrative Resulting Agency Comment Spec In Lab Richard Pascal MD CHEMISTRY ORDERABLES Performing Organization Address City/[facility]/[place] Co de Phone Number [facility] [place] [address] * Magnesium (09/08/2022 2:00 AM EDT) Magnesium 0.90 0.69 - 1.07 mmol/L [facility] Blood 09/08/2022 2:00 AM EDT 09/08/2022 2:13 AM EDT Narrative Resulting Agency Comment Spec In Lab Richard Pascal MD CHEMISTRY ORDERABLES Performing Organization Address [facility]/[place] Co de Phone Number [facility] [place] [address] * POCT Glucose (09/07/2022 11:06 PM EDT) Glucose, POC 189 65 - 199 mg/dL [facility] Comment: Supplemental ranges: <140 mg/dL before meals <180 mg/dL all other times of the day Blood 09/07/2022 11:0 6 PM EDT 09/07/2022 11:06 PM EDT Richard Pascal MD POINT OF CARE TEST O RDERABLES Performing Organization Address City/[facility]/[place] Co de Phone Number [facility] [place] [address] * POCT Glucose (09/07/2022 8:21 PM EDT) Glucose, POC 143 65 - 199 mg/dL [facility] Comment: Supplemental ranges: <140 mg/dL before meals <180 mg/dL all other times of the day Blood 09/07/2022 8:21 PM EDT 09/07/2022 8:21 PM EDT Molina Flores MD POINT OF CARE TEST ORDERABLES [facility] [place] [address] * POCT Glucose (09/07/2022 3:54 PM EDT) Glucose, POC 182 65 - 199 mg/dL [facility] Comment: Supplemental ranges: <140 mg/dL before meals <180 mg/dL all other times of the day Blood 09/07/2022 3:54 PM EDT 09/07/2022 3:54 PM EDT Molina Flores MD POINT OF CARE TEST ORDERABLES Performing Organization Address [facility]/ZIP Co de Phone Number [facility] [place] [address] * POCT Glucose (09/07/2022 11:26 AM EDT) Glucose, POC 153 65 - 199 mg/dL [facility] Comment: Supplemental ranges: <140 mg/dL before meals <180 mg/dL all other times of the day Blood 09/07/2022 11:2 6 AM EDT 09/07/2022 11:26 AM EDT Molina Flores MD POINT OF CARE TEST ORDERABLES [facility] [place] [address] * POCT Glucose (09/07/2022 7:46 AM EDT) Glucose, POC 150 65 - 199 mg/dL [facility] Comment: Supplemental ranges: <140 mg/dL before meals <180 mg/dL all other times of the day Blood 09/07/2022 7:46 AM EDT 09/07/2022 7:46 AM EDT Richard Pascal MD POINT OF CARE TEST O RDERABLES Performing Organization Address [facility]/[place] Co de Phone Number [facility] [place] [address] * EKG 12 Lead (09/07/2022 6:35 AM EDT) Ventricular rate 72 BPM MUSE SYSTEM Atrial Rate 72 BPM MUSE SYSTEM P-R Interval 148 ms MUSE SYSTEM QRS Duration 72 ms MUSE SYSTEM Q-T Interval 416 ms MUSE SYSTEM QTC Calculated (Bezet) 455 ms MUSE SYSTEM Calculated P [place] 53 degrees MUSE SYSTEM Calculated R [place] 86 degrees MUSE SYSTEM Calculated T [place] 149 degrees MUSE SYSTEM INTERPRETATION Normal sinus rhythm with sinus arrhythmia Low voltage QRS T wave abnormality, consider anterolateral ischemia Abnormal ECG When compared with ECG of 01-SEP-2022 02:24, No significant change was found I personally reviewed the tracing and edited the fellows interpretation Confirmed by fellow Niurka Rose ([id number]) on 09/07/2022 8:45:34 AM Confirmed by MD ALEJANDRA, RICHARD ([id number]) on 09/07/2022 1:55:43 PM MUSE SYSTEM 09/07/2022 6:35 AM EDT 09/07/2022 1:55 PM EDT Richard Pascal MD ECG ORDERABLES Performing Organization Address [facility]/[place] Co de Phone Number MUSE SYSTEM * POCT Glucose (09/07/2022 4:08 AM EDT) Glucose, POC 135 65 - 199 mg/dL [facility] Comment: Supplemental ranges: <140 mg/dL before meals <180 mg/dL all other times of the day Blood 09/07/2022 4:08 AM EDT 09/07/2022 4:08 AM EDT Richard Pascal MD POINT OF CARE TEST O RDERABLES Performing Organization Address [facility]/[place] Co de Phone Number [facility] [place] [address] * (ABNORMAL) Differential, Automated (09/07/2022 12:30 AM EDT) Neutrophil % 43.6 % [facility] Neutrophil Absolute 2.71 1.70 - 6.10 x10(3)/[facility] LAB[facility]ATORY Lymph % 33.3 % [facility] Lymphocytes Abs 2.1 0.9 - 3.2 x10(3)/[facility]ORY Monocyte % 11.6 % [facility] Monocyte Abs 0.7 0.3 - 0.9 x10(3)/[facility] Eos % 9.5 % [facility] Eosinophils Abs 0.6(H) 0.0 - 0.4 x10(3)/[facility]ORY Basophil % 1.4 % [facility] Baso Absolute 0.1 0.0 - 0.1 x10(3)/[facility]ATORY Immature Gran % 0.60 % [facility] Comment: Immature granulocytes(IG's)percentage and absolute count will include metamyelocytes, myelocytes, and promyelocytes. Blood smears from CBCs yielding IG's will be scanned manually for concordance. If this scan disagrees with the automated IG or if promyelocytes are noted, a manual differential will be performed. Immature Gran Absolute 0.04 0.00 - 0.04 x10(3)/[facility]ATORY Blood 09/07/2022 12:3 0 AM EDT 09/07/2022 12:54 AM EDT Narrative Resulting Agency Comment Spec In Lab Jigar Streeter MD HEMATOLOGY ORDERABLE S [facility] [place] [address] * (ABNORMAL) Hemogram (09/07/2022 12:30 AM EDT) White Blood Cell 6.2 4.0 - 9.5 x10(3)/[facility]ATORY Red Blood Cell 4.11 4.00 - 5.21 x10(6)/[facility] Hemoglobin 9.1(L) 11.7 - 15.5 g/dL [facility] Hematocrit 30.5(L) 35.7 - 45.8 % [facility] Mean Cell Volume 74.2(L) 82.6 - 94.4 fL [facility] Mean Cell Hemoglobin 22.1(L) 27.1 - 32.0 pg [facility] Mean Cell Hemoglobin Concentration 29.8(L) 31.7 - 35.0 g/dL [facility] Platelet 286 145 - 357 x10(3)/mc L [facility] RDW Standard Deviation Not Measured 37.0 - 46.0 fL [facility] RDW coefficient of variation Not Measured 11.5 - 14.1 % [facility] Mean Platelet Volume 9.6 7.6 - 12.9 fL [facility] NRBC% auto 0.0 % [facility] NRBC Absolute 0.000 0.000 - 0.000 x10(3)/mc L [facility] Blood 09/07/2022 12:3 0 AM EDT 09/07/2022 12:54 AM EDT Narrative Resulting Agency Comment Spec In Lab Jigar Streeter MD HEMATOLOGY ORDERABLE S [facility] [place] [address] * (ABNORMAL) Basic Metabolic Panel (non-fasting) (09/07/2022 12:30 AM EDT) Glucose 144 65 - 199 mg/dL [facility] Comment:Diabetes: >=200 mg/d L plus symptoms Blood Urea Nitrogen 22(H) 8 - 18 mg/dL [facility] Creatinine 0.53(L) 0.70 - 1.20 mg/dL [facility] Sodium 138 135 - 145 mmol/L [facility] Potassium 4.6 3.5 - 5.0 mmol/L [facility] Comment: Please note: ??Patients with WBC >100,000 may have falsely elevated Potassium levels. ??For accurate Potassium quantification in these patients send serum separator tube (gold top) for subsequent determinations. ??Contact the Clinical Chemistry Laboratory if there are any questions. Chloride 103 98 - 107 mmol/L [facility] Carbon Dioxide 29 22 - 31 mmol/L [facility] Anion Gap 6 5 - 15 mmol/L [facility] Calcium 9.4 8.5 - 10.5 mg/dL [facility] Est Glomerular Filtration Rate 105 >=60 mL/min/1. 73 m?? [facility] Comment: This patient's estimated GFR was [...] and symptoms in addition to eGFR. Blood 09/07/2022 12:3 0 AM EDT 09/07/2022 12:54 AM EDT Narrative Resulting Agency Comment Spec In Lab Richard Pascal MD CHEMISTRY ORDERABLES Performing Organization Address [facility] de Phone Number [facility] [place] [address] * Phosphorus (09/07/2022 12:30 AM EDT) Phosphorus 3.0 2.5 - 4.5 mg/dL [facility] Blood 09/07/2022 12:3 0 AM EDT 09/07/2022 12:54 AM EDT Narrative Resulting Agency Comment Spec In Lab Richard Pascal MD CHEMISTRY ORDERABLES Performing Organization Address [facility]/[place] Co de Phone Number [facility] [place] [address] * Magnesium (09/07/2022 12:30 AM EDT) Magnesium 0.86 0.69 - 1.07 mmol/L [facility] Blood 09/07/2022 12:3 0 AM EDT 09/07/2022 12:54 AM EDT Narrative Resulting Agency Comment Spec In Lab Richard Pascal MD CHEMISTRY ORDERABLES [facility] [place] [address] * POCT Glucose (09/07/2022 12:29 AM EDT) Glucose, POC 127 65 - 199 mg/dL [facility] Comment: Supplemental ranges: <140 mg/dL before meals <180 mg/dL all other times of the day Blood 09/07/2022 12:2 9 AM EDT 09/07/2022 12:29 AM EDT Richard Pascal MD POINT OF CARE TEST O RDERABLES Performing Organization Address [facility]/[place] Co de Phone Number [facility] [place] [address] * POCT Glucose (09/06/2022 9:54 PM EDT) Glucose, POC 184 65 - 199 mg/dL [facility] Comment: Supplemental ranges: <140 mg/dL before meals <180 mg/dL all other times of the day Blood 09/06/2022 9:54 PM EDT 09/06/2022 9:54 PM EDT Richard Pascal MD POINT OF CARE TEST O RDERABLES Performing Organization Address [facility]/[place] Co de Phone Number [facility] [place] [address] * POCT Glucose (09/06/2022 4:46 PM EDT) Glucose, POC 177 65 - 199 mg/dL [facility] Comment: Supplemental ranges: <140 mg/dL before meals <180 mg/dL all other times of the day Blood 09/06/2022 4:46 PM EDT 09/06/2022 4:46 PM EDT Richard Pascal MD POINT OF CARE TEST O RDERABLES Performing Organization Address [facility]/[place] Co de Phone Number [facility] [place] [address] * POCT Glucose (09/06/2022 12:57 PM EDT) Glucose, POC 176 65 - 199 mg/dL [facility] Comment: Supplemental ranges: <140 mg/dL before meals <180 mg/dL all other times of the day Blood 09/06/2022 12:5 7 PM EDT 09/06/2022 12:57 PM EDT Richard Pascal MD POINT OF CARE TEST O RDAV [facility] [place] [address] * POCT Glucose (09/06/2022 9:06 AM EDT) Glucose, POC 162 65 - 199 mg/dL [facility] Comment: Supplemental ranges: <140 mg/dL before meals <180 mg/dL all other times of the day Blood 09/06/2022 9:06 AM EDT 09/06/2022 9:06 AM EDT Richard Pascal MD POINT OF CARE TEST O GABRIELLA Performing Organization Address [facility]/[place] Co de Phone Number [facility] [place] [address] * POCT Glucose (09/06/2022 3:39 AM EDT) Glucose, POC 102 65 - 199 mg/dL [facility] Comment: Supplemental ranges: <140 mg/dL before meals <180 mg/dL all other times of the day Blood 09/06/2022 3:39 AM EDT 09/06/2022 3:39 AM EDT Richard Pascal MD POINT OF CARE TEST O RDERAREYMUNDO Performing Organization Address City/[facility]/[place] Co de Phone Number [facility] [place] [address] * (ABNORMAL) Differential, Automated (09/06/2022 1:00 AM EDT) Neutrophil % 41.9 % [facility] Neutrophil Absolute 2.64 1.70 - 6.10 x10(3)/mc L [facility] Lymph % 36.2 % [facility] Lymphocytes Abs 2.3 0.9 - 3.2 x10(3)/ L [facility] Monocyte % 12.5 % [facility] Monocyte Abs 0.8 0.3 - 0.9 x10(3)/[facility] Eos % 7.6 % [facility] Eosinophils Abs 0.5(H) 0.0 - 0.4 x10(3)/[facility] Basophil % 1.3 % [facility] Baso Absolute 0.1 0.0 - 0.1 x10(3)/[facility] Immature Gran % 0.50 % [facility] Comment: Immature granulocytes(IG's)percentage and absolute count will include metamyelocytes, myelocytes, and promyelocytes. Blood smears from CBCs yielding IG's will be scanned manually for concordance. If this scan disagrees with the automated IG or if promyelocytes are noted, a manual differential will be performed. Immature Gran Absolute 0.03 0.00 - 0.04 x10(3)/ L [facility] Blood 09/06/2022 1:00 AM EDT 09/06/2022 1:34 AM EDT Narrative Resulting Agency Comment Spec In Lab Tyler Cobb MD HEMATOLOGY ORDERABLE S [facility] [place] [address] * (ABNORMAL) Hemogram (09/06/2022 1:00 AM EDT) White Blood Cell 6.3 4.0 - 9.5 x10(3)/ L [facility] Red Blood Cell 3.92(L) 4.00 - 5.21 x10(6)/[facility] Comment:Dimorphic RBC popula tion. Hemoglobin 8.6(L) 11.7 - 15.5 g/dL [facility] Hematocrit 29.0(L) 35.7 - 45.8 % [facility] Mean Cell Volume 74.0(L) 82.6 - 94.4 fL [facility] Mean Cell Hemoglobin 21.9(L) 27.1 - 32.0 pg [facility] Mean Cell Hemoglobin Concentration 29.7(L) 31.7 - 35.0 g/dL [facility] Platelet 297 145 - 357 x10(3)/mc L [facility] RDW Standard Deviation Not Measured 37.0 - 46.0 fL [facility] RDW coefficient of variation Not Measured 11.5 - 14.1 % [facility] Mean Platelet Volume 9.8 7.6 - 12.9 fL [facility] NRBC% auto 0.0 % [facility] NRBC Absolute 0.000 0.000 - 0.000 x10(3)/mc L [facility] Blood 09/06/2022 1:00 AM EDT 09/06/2022 1:34 AM EDT Narrative Resulting Agency Comment Spec In Lab Tyler Cobb MD HEMATOLOGY ORDERABLE S Performing Organization Address City/State/[place] Co de Phone Number [facility] [place] [address] * (ABNORMAL) Basic Metabolic Panel (non-fasting) (09/06/2022 1:00 AM EDT) Glucose 95 65 - 199 mg/dL [facility] Comment:Diabetes: >=200 mg/d L plus symptoms Blood Urea Nitrogen 21(H) 8 - 18 mg/dL [facility] Creatinine 0.49(L) 0.70 - 1.20 mg/dL [facility] Sodium 139 135 - 145 mmol/L [facility] Potassium 4.3 3.5 - 5.0 mmol/L [facility] Comment: Please note: ??Patients with WBC >100,000 may have falsely elevated Potassium levels. ??For accurate Potassium quantification in these patients send serum separator tube (gold top) for subsequent determinations. ??Contact the Clinical Chemistry Laboratory if there are any questions. Chloride 104 98 - 107 mmol/L [facility] Carbon Dioxide 28 22 - 31 mmol/L [facility] Anion Gap 7 5 - 15 mmol/L [facility] Calcium 9.5 8.5 - 10.5 mg/dL [facility] Est Glomerular Filtration Rate 106 >=60 mL/min/1. 73 m?? [facility] Comment: This patient's estimated GFR was [...] and symptoms in addition to eGFR. Blood 09/06/2022 1:00 AM EDT 09/06/2022 1:34 AM EDT Narrative Resulting Agency Comment Spec In Lab Richard Pascal MD CHEMISTRY ORDERABLES Performing Organization Address [facility]/[place] Co de Phone Number [facility] [place] [address] * Phosphorus (09/06/2022 1:00 AM EDT) Phosphorus 3.6 2.5 - 4.5 mg/dL [facility] Blood 09/06/2022 1:00 AM EDT 09/06/2022 1:34 AM EDT Narrative Resulting Agency Comment Spec In Lab Richard Pascal MD CHEMISTRY ORDERABLES Performing Organization Address City/[facility]/[place] Co de Phone Number [facility] [place] [address] * Magnesium (09/06/2022 1:00 AM EDT) Magnesium 0.81 0.69 - 1.07 mmol/L [facility] Blood 09/06/2022 1:00 AM EDT 09/06/2022 1:34 AM EDT Narrative Resulting Agency Comment Spec In Lab Richard Pascal MD CHEMISTRY ORDERABLES Performing Organization Address City/[facility]/[place] Co de Phone Number [facility] [place] [address] * POCT Glucose (09/05/2022 11:29 PM EDT) Glucose, POC 94 65 - 199 mg/dL [facility] Comment: Supplemental ranges: <140 mg/dL before meals <180 mg/dL all other times of the day Blood 09/05/2022 11:2 9 PM EDT 09/05/2022 11:29 PM EDT Richard Pascal MD POINT OF CARE TEST O RDERABLES [facility] [place] [address] * POCT Glucose (09/05/2022 10:20 PM EDT) Glucose, POC 106 65 - 199 mg/dL [facility] Comment: Supplemental ranges: <140 mg/dL before meals <180 mg/dL all other times of the day Blood 09/05/2022 10:2 0 PM EDT 09/05/2022 10:20 PM EDT Richard Pascal MD POINT OF CARE TEST O RDERABLES Performing Organization Address City/[facility]/ZIP Co de Phone Number [facility] [place] [address] * (ABNORMAL) POCT Glucose (09/05/2022 7:17 PM EDT) Glucose, POC 225(H) 65 - 199 mg/dL [facility] Comment: Supplemental ranges: <140 mg/dL before meals <180 mg/dL all other times of the day Blood 09/05/2022 7:17 PM EDT 09/05/2022 7:17 PM EDT Richard Pascal MD POINT OF CARE TEST O RDERABLES [facility] [place] [address] * POCT Glucose (09/05/2022 3:54 PM EDT) Glucose, POC 142 65 - 199 mg/dL [facility] Comment: Supplemental ranges: <140 mg/dL before meals <180 mg/dL all other times of the day Blood 09/05/2022 3:54 PM EDT 09/05/2022 3:54 PM EDT Richard Pascal MD POINT OF CARE TEST O GABRIELLA Performing Organization Address City/[facility]/[place] Co de Phone Number [facility] [place] [address] * POCT Glucose (09/05/2022 12:44 PM EDT) Glucose, POC 142 65 - 199 mg/dL [facility] Comment: Supplemental ranges: <140 mg/dL before meals <180 mg/dL all other times of the day Blood 09/05/2022 12:4 4 PM EDT 09/05/2022 12:44 PM EDT Richard Pascal MD POINT OF CARE TEST O GABRIELLA Performing Organization Address [facility]/[place] Co de Phone Number [facility] [place] [address] * POCT Glucose (09/05/2022 9:51 AM EDT) Glucose, POC 173 65 - 199 mg/dL [facility] Comment: Supplemental ranges: <140 mg/dL before meals <180 mg/dL all other times of the day Blood 09/05/2022 9:51 AM EDT 09/05/2022 9:51 AM EDT Richard Pascal MD POINT OF CARE TEST O GABRIELLA Performing Organization Address [facility]/[place] Co de Phone Number [facility] [place] [address] * XR Chest One View (09/05/2022 9:24 AM EDT) Anatomical Region Laterality Modality Chest N/A Digital Radiogra phy Impressions 09/05/2022 3:43 PM EDT 1. Reposition enteric tube now extending below the diaphragm and included [id number]. 2. Similar appearance of elevated right hemidiaphragm and linear/patchy bibasilar opacities which may represent atelectasis or possibly aspiration. Thank you for letting us participate in the care of this patient. ??If you are a health care provider and have any questions regarding this report, please contact the number below. ??For patients who have questions please contact the health acute care physician that requested your imaging first. ? Electronically signed by: AUDI PERDOMO MD, [facility] ??([phone]), at 09/05/2022 3:43 PM Narrative 09/05/2022 3:43 PM EDT EXAMINATION: XR CHEST ONE VIEW CLINICAL HISTORY: aspiration suspected aspiration suspected with placement of feeding tube, please eval for evidence of such TECHNIQUE: 1 view of the chest COMPARISON: Chest x-ray 08/27/2022 FINDINGS: Right PICC line tip difficult to visualize though followed into the region of the distal SVC as on prior. Repositioning of enteric tube now extending below the diaphragm and included [id number]. Similar appearance of mild elevation of the right hemidiaphragm with streaky right basilar opacities and some mild patchy opacities at the left lung base. No new focal airspace opacity. No appreciable pleural fluid collection. No pneumothorax. Cardiomediastinal silhouette is unchanged. No evidence of pulmonary edema. No acute osseous abnormality. Procedure Note Audi Perdomo MD - 09/05/2022 EXAMINATION: XR CHEST ONE VIEW CLINICAL HISTORY: aspiration suspected aspiration suspected with placement of feeding tube, please eval forevidence of such TECHNIQUE: 1 view of the chest COMPARISON: Chest x-ray 08/27/2022 FINDINGS: Right PICC line tip difficult to visualize though followed into the regionof the distal SVC as on prior. Repositioning of enteric tube now extendingbelow the diaphragm and included [id number]. Similar appearance of mild elevation of the right hemidiaphragm withstreaky right basilar opacities and some mild patchy opacities at the left lungbase. No new focal airspace opacity. No appreciable pleural fluid collection. No pneumothorax. Cardiomediastinal silhouette is unchanged. No evidence of pulmonary edema. No acute osseous abnormality. IMPRESSION 1. Reposition enteric tube now extending below the diaphragm andincluded [id number]. 2. Similar appearance of elevated right hemidiaphragm and linear/patchy bibasilar opacities which may represent atelectasis or possiblyaspiration. Thank you for letting us participate in the care of this patient. If youare a health care provider and have any questions regarding this report,please contact the number below. For patients who have questions please contactthe health acute care physician that requested your imaging first. Richard Pascal MD IMG DX ORDERABLES * POCT Glucose (09/05/2022 4:10 AM EDT) Glucose, POC 162 65 - 199 mg/dL [facility] Comment: Supplemental ranges: <140 mg/dL before meals <180 mg/dL all other times of the day Blood 09/05/2022 4:10 AM EDT 09/05/2022 4:10 AM EDT Tenisha Sandy MD POINT OF CARE MARIANELA T ORDERABLES [facility] [place] [address] * POCT Glucose (09/05/2022 1:18 AM EDT) Glucose, POC 98 65 - 199 mg/dL [facility] Comment: Supplemental ranges: <140 mg/dL before meals <180 mg/dL all other times of the day Blood 09/05/2022 1:18 AM EDT 09/05/2022 1:18 AM EDT Tenisha Sandy MD POINT OF CARE MARIANELA T ORDERABLES Performing Organization Address City/[facility]/ZIP Co de Phone Number [facility] [place] [address] * Differential, Automated (09/05/2022 1:06 AM EDT) Neutrophil % 38.7 % [facility] Neutrophil Absolute 1.88 1.70 - 6.10 x10(3)/[facility] Lymph % 35.9 % [facility] Lymphocytes Abs 1.8 0.9 - 3.2 x10(3)/[facility] Monocyte % 14.2 % [facility] Monocyte Abs 0.7 0.3 - 0.9 x10(3)/[facility] LAB[facility] Eos % 9.2 % [facility] Eosinophils Abs 0.4 0.0 - 0.4 x10(3)/[facility] LAB[facility] Basophil % 1.6 % [facility] Baso Absolute 0.1 0.0 - 0.1 x10(3)/[facility] LAB[facility] Immature Gran % 0.40 % [facility] Comment: Immature granulocytes(IG's)percentage and absolute count will include metamyelocytes, myelocytes, and promyelocytes. Blood smears from CBCs yielding IG's will be scanned manually for concordance. If this scan disagrees with the automated IG or if promyelocytes are noted, a manual differential will be performed. Immature Gran Absolute 0.02 0.00 - 0.04 x10(3)/[facility] Blood 09/05/2022 1:06 AM EDT 09/05/2022 1:20 AM EDT Narrative Resulting Agency Comment Spec In Lab Tyler Cobb MD HEMATOLOGY ORDERABLE S Performing Organization Address [facility]/[place] [address] * (ABNORMAL) Hemogram (09/05/2022 1:06 AM EDT) White Blood Cell 4.9 4.0 - 9.5 x10(3)/mc L [facility] Red Blood Cell 3.93(L) 4.00 - 5.21 x10(6)/mc L [facility] Comment:Dimorphic RBC popula tion. Hemoglobin 8.7(L) 11.7 - 15.5 g/dL [facility] Hematocrit 29.0(L) 35.7 - 45.8 % [facility] Mean Cell Volume 73.8(L) 82.6 - 94.4 fL [facility] Mean Cell Hemoglobin 22.1(L) 27.1 - 32.0 pg [facility] Mean Cell Hemoglobin Concentration 30.0(L) 31.7 - 35.0 g/dL [facility] Platelet 314 145 - 357 x10(3)/mc L [facility] RDW Standard Deviation Not Measured 37.0 - 46.0 fL [facility] RDW coefficient of variation Not Measured 11.5 - 14.1 % [facility] Mean Platelet Volume 9.8 7.6 - 12.9 fL [facility] NRBC% auto 0.0 % [facility] NRBC Absolute 0.000 0.000 - 0.000 x10(3)/ L [facility] Blood 09/05/2022 1:06 AM EDT 09/05/2022 1:20 AM EDT Narrative Resulting Agency Comment Spec In Lab Tyler Cobb MD HEMATOLOGY ORDERABLE S Performing Organization Address City/State/[place] Co de Phone Number [facility] [place] [address] * (ABNORMAL) Basic Metabolic Panel (non-fasting) (09/05/2022 1:06 AM EDT) Pathologist [facility] Glucose 95 65 - 199 mg/dL [facility] Comment:Diabetes: >=200 mg/d L plus symptoms Blood Urea Nitrogen 21(H) 8 - 18 mg/dL [facility] Creatinine 0.49(L) 0.70 - 1.20 mg/dL [facility] Sodium 140 135 - 145 mmol/L [facility] Potassium 3.8 3.5 - 5.0 mmol/L [facility] Comment: Please note: ??Patients with WBC >100,000 may have falsely elevated Potassium levels. ??For accurate Potassium quantification in these patients send serum separator tube (gold top) for subsequent determinations. ??Contact the Clinical Chemistry Laboratory if there are any questions. Chloride 103 98 - 107 mmol/L [facility] Carbon Dioxide 28 22 - 31 mmol/L [facility] Anion Gap 9 5 - 15 mmol/L [facility] Calcium 9.5 8.5 - 10.5 mg/dL [facility] Est Glomerular Filtration Rate 106 >=60 mL/min/1. 73 m?? [facility] Comment: This patient's estimated GFR was [...] and symptoms in addition to eGFR. Blood 09/05/2022 1:06 AM EDT 09/05/2022 1:20 AM EDT Narrative Resulting Agency Comment Spec In Lab Richard Pascal MD CHEMISTRY ORDERABLES [facility] [place] [address] * Phosphorus (09/05/2022 1:06 AM EDT) Phosphorus 3.9 2.5 - 4.5 mg/dL [facility] Blood 09/05/2022 1:06 AM EDT 09/05/2022 1:20 AM EDT Narrative Resulting Agency Comment Spec In Lab Richard Pascal MD CHEMISTRY ORDERABLES [facility] [place] [address] * Magnesium (09/05/2022 1:06 AM EDT) Magnesium 0.91 0.69 - 1.07 mmol/L [facility] Blood 09/05/2022 1:06 AM EDT 09/05/2022 1:20 AM EDT Narrative Resulting Agency Comment Spec In Lab Richard Pascal MD CHEMISTRY ORDERABLES Performing Organization Address [facility]/[place] Co de Phone Number [facility] [place] [address] * POCT Glucose (09/04/2022 10:16 PM EDT) Glucose, POC 138 65 - 199 mg/dL [facility] Comment: Supplemental ranges: <140 mg/dL before meals <180 mg/dL all other times of the day Blood 09/04/2022 10:1 6 PM EDT 09/04/2022 10:16 PM EDT Tenisha Sandy MD POINT OF CARE MARIANELA T ORDERABLES Performing Organization Address [facility] de Phone Number [facility] [place] [address] * XR Abdomen 1 view (Generic) (09/04/2022 9:47 PM EDT) Anatomical Region Laterality Modality Abdomen N/A Digital Radiogra phy Impressions 09/04/2022 10:35 PM EDT 1. ??On the chest radiograph at 2136 hours the enteric tube projects over the mid esophagus. On the abdominal radiograph at 2139 hours the enteric tube now projects below the diaphragm with tip partially visualized projecting over the left mid abdomen. 2. ??Lower lobe predominant patchy and reticular airspace opacities consistent with sequela of multifocal pneumonia. The appearance is improved compared to prior radiograph. Thank you for letting us participate in the care of this patient. ??If you are a health care provider and have any questions regarding this report, please contact the number below. ??For patients who have questions please contact the health acute care physician that requested your imaging first. ? Narrative 09/04/2022 10:35 PM EDT EXAMINATION: XR CHEST ONE VIEW, XR ABDOMEN 1 VIEW (GENERIC) CLINICAL HISTORY: For mid NGT check, verify NG tube placement TECHNIQUE: 1 view of the chest , single image at 2136 hours. Portable abdominal radiograph single image at 2139 hours COMPARISON: CT chest 08/27/2022. Chest radiograph 08/19/2022 FINDINGS: Chest radiograph: Enteric tube is present with tip projecting superior to the consuelo with coiled appearance likely within the esophagus given the course of the tube lateral to the tracheal air column. Right PICC tip projects over the superior cavoatrial junction. EKG leads project over the thorax. There is mild elevation of the right hemidiaphragm. Decreased conspicuity of reticular and small patchy opacities throughout the lungs compared to prior radiograph 08/19/2022. There are persistent small patchy opacities at the left lung base and streaky opacities at the right lung base. No overt edema. No pneumothorax. No pleural effusions. Normal size of the cardiomediastinal silhouette and [place]. No acute osseous findings. Abdominal radiograph: Enteric tube projects below the diaphragm with tip partially visualized projecting over the mid abdomen. No gaseous distention of the stomach. Contrast material within nondilated large bowel. Procedure Note Jagdeep Lee MD - 09/04/2022 EXAMINATION: XR CHEST ONE VIEW, XR ABDOMEN 1 VIEW (GENERIC) CLINICAL HISTORY: For mid NGT check, verify NG tube placement TECHNIQUE: 1 view of the chest , single image at 2136 hours. Portable abdominal radiograph single image at 2139 hours COMPARISON: CT chest 08/27/2022. Chest radiograph 08/19/2022 FINDINGS: Chest radiograph: Enteric tube is present with tip projecting superior to the consuelo withcoiled appearance likely within the esophagus given the course of the tubelateral to the tracheal air column. Right PICC tip projects over the superior cavoatrial junction. EKG leads project over the thorax. There is mild elevation of the right hemidiaphragm. Decreased conspicuityof reticular and small patchy opacities throughout the lungs compared toprior radiograph 08/19/2022. There are persistent small patchy opacities at theleft lung base and streaky opacities at the right lung base. No overt edema.No pneumothorax. No pleural effusions. Normal size of the cardiomediastinal silhouette and [place]. No acute osseous findings. Abdominal radiograph: Enteric tube projects below the diaphragm with tip partially visualized projecting over the mid abdomen. No gaseous distention of the stomach.Contrast material within nondilated large bowel. IMPRESSION 1. On the chest radiograph at 2136 hours the enteric tube projects overthe mid esophagus. On the abdominal radiograph at 2139 hours the enteric tubenow projects below the diaphragm with tip partially visualized projecting overthe left mid abdomen. 2. Lower lobe predominant patchy and reticular airspace opacitiesconsistent with sequela of multifocal pneumonia. The appearance is improved comparedto prior radiograph. Thank you for letting us participate in the care of this patient. If youare a health care provider and have any questions regarding this report,please contact the number below. For patients who have questions please contactthe health acute care physician that requested your imaging first. Tenisha Sandy MD IMG DX ORDERABLES * XR Chest One View (09/04/2022 9:47 PM EDT) Anatomical Region Laterality Modality Chest N/A Digital Radiogra phy Impressions 09/04/2022 10:35 PM EDT 1. ??On the chest radiograph at 2136 hours the enteric tube projects over the mid esophagus. On the abdominal radiograph at 2139 hours the enteric tube now projects below the diaphragm with tip partially visualized projecting over the left mid abdomen. 2. ??Lower lobe predominant patchy and reticular airspace opacities consistent with sequela of multifocal pneumonia. The appearance is improved compared to prior radiograph. Thank you for letting us participate in the care of this patient. ??If you are a health care provider and have any questions regarding this report, please contact the number below. ??For patients who have questions please contact the health acute care physician that requested your imaging first. ? Narrative 09/04/2022 10:35 PM EDT EXAMINATION: XR CHEST ONE VIEW, XR ABDOMEN 1 VIEW (GENERIC) CLINICAL HISTORY: For mid NGT check, verify NG tube placement TECHNIQUE: 1 view of the chest , single image at 2136 hours. Portable abdominal radiograph single image at 2139 hours COMPARISON: CT chest 08/27/2022. Chest radiograph 08/19/2022 FINDINGS: Chest radiograph: Enteric tube is present with tip projecting superior to the consuelo with coiled appearance likely within the esophagus given the course of the tube lateral to the tracheal air column. Right PICC tip projects over the superior cavoatrial junction. EKG leads project over the thorax. There is mild elevation of the right hemidiaphragm. Decreased conspicuity of reticular and small patchy opacities throughout the lungs compared to prior radiograph 08/19/2022. There are persistent small patchy opacities at the left lung base and streaky opacities at the right lung base. No overt edema. No pneumothorax. No pleural effusions. Normal size of the cardiomediastinal silhouette and [place]. No acute osseous findings. Abdominal radiograph: Enteric tube projects below the diaphragm with tip partially visualized projecting over the mid abdomen. No gaseous distention of the stomach. Contrast material within nondilated large bowel. Procedure Note Jagdeep Lee MD - 09/04/2022 EXAMINATION: XR CHEST ONE VIEW, XR ABDOMEN 1 VIEW (GENERIC) CLINICAL HISTORY: For mid NGT check, verify NG tube placement TECHNIQUE: 1 view of the chest , single image at 2136 hours. Portable abdominal radiograph single image at 2139 hours COMPARISON: CT chest 08/27/2022. Chest radiograph 08/19/2022 FINDINGS: Chest radiograph: Enteric tube is present with tip projecting superior to the consuelo withcoiled appearance likely within the esophagus given the course of the tubelateral to the tracheal air column. Right PICC tip projects over the superior cavoatrial junction. EKG leads project over the thorax. There is mild elevation of the right hemidiaphragm. Decreased conspicuityof reticular and small patchy opacities throughout the lungs compared toprior radiograph 08/19/2022. There are persistent small patchy opacities at theleft lung base and streaky opacities at the right lung base. No overt edema.No pneumothorax. No pleural effusions. Normal size of the cardiomediastinal silhouette and [place]. No acute osseous findings. Abdominal radiograph: Enteric tube projects below the diaphragm with tip partially visualized projecting over the mid abdomen. No gaseous distention of the stomach.Contrast material within nondilated large bowel. IMPRESSION 1. On the chest radiograph at 2136 hours the enteric tube projects overthe mid esophagus. On the abdominal radiograph at 2139 hours the enteric tubenow projects below the diaphragm with tip partially visualized projecting overthe left mid abdomen. 2. Lower lobe predominant patchy and reticular airspace opacitiesconsistent with sequela of multifocal pneumonia. The appearance is improved comparedto prior radiograph. Thank you for letting us participate in the care of this patient. If youare a health care provider and have any questions regarding this report,please contact the number below. For patients who have questions please contactthe health acute care physician that requested your imaging first. Tenisha Sandy MD IMG DX ORDERABLES * POCT Glucose (09/04/2022 8:49 PM EDT) [facility] Signature Glucose, POC 73 65 - 199 mg/dL [facility] Comment: Supplemental ranges: <140 mg/dL before meals <180 mg/dL all other times of the day Blood 09/04/2022 8:49 PM EDT 09/04/2022 8:49 PM EDT Tenisha Sandy MD POINT OF CARE MARIANELA T ORDERABLES Performing Organization Address City/[facility]/[place] Co de Phone Number [facility] [place] [address] * POCT Glucose (09/04/2022 5:20 PM EDT) Glucose, POC 136 65 - 199 mg/dL [facility] Comment: Supplemental ranges: <140 mg/dL before meals <180 mg/dL all other times of the day Blood 09/04/2022 5:20 PM EDT 09/04/2022 5:20 PM EDT Tenisha Sandy MD POINT OF CARE MARIANELA T ORDERABLES Performing Organization Address City/[facility]/[place] Co de Phone Number [facility] [place] [address] * (ABNORMAL) POCT Glucose (09/04/2022 4:39 PM EDT) Glucose, POC 64(L) 65 - 199 mg/dL [facility] Comment: Supplemental ranges: <140 mg/dL before meals <180 mg/dL all other times of the day Blood 09/04/2022 4:39 PM EDT 09/04/2022 4:39 PM EDT Tenisha Sandy MD POINT OF CARE MARIANELA T ORDERABLES Performing Organization Address City/[facility]/[place] Co de Phone Number [facility] [place] [address] * POCT Glucose (09/04/2022 3:21 PM EDT) Glucose, POC 68 65 - 199 mg/dL [facility] Comment: Supplemental ranges: <140 mg/dL before meals <180 mg/dL all other times of the day Blood 09/04/2022 3:21 PM EDT 09/04/2022 3:21 PM EDT Tenisha Sandy MD POINT OF CARE MARIANELA T ORDERABLES [facility] [place] [address] * POCT Glucose (09/04/2022 11:07 AM EDT) Glucose, POC 107 65 - 199 mg/dL [facility] Comment: Supplemental ranges: <140 mg/dL before meals <180 mg/dL all other times of the day Blood 09/04/2022 11:0 7 AM EDT 09/04/2022 11:07 AM EDT Tenisha Sandy MD POINT OF CARE MARIANELA T ORDERABLES Performing Organization Address [facility] Co de Phone Number [facility] [place] [address] * XR Fluoro Barium Swallow (Modified/Video Swallow Pharynx) (09/04/2022 10:25 AM EDT) Anatomical Region Laterality Modality N/A Radio Fluoroscop y Impressions 09/04/2022 10:57 AM EDT 1. ??Penetration of the airway and aspiration with thin liquids, especially with rapid sips of thin barium. 2. ??Flash penetration of nectar thick liquids from a straw. 3. ??Reflux of residual barium within the esophagus on multiple swallows. I have personally reviewed the image(s) and the resident's interpretation and agree with the findings, Alfonso Adams MD at 09/04/2022 10:57 AM Thank you for letting us participate in the care of this patient. ??If you are a health care provider and have any questions regarding this report, please contact the number below. ??For patients who have questions please contact the health acute care physician that requested your imaging first. ? Electronically signed by: Alfonso Adams MD, [facility] ([phone]), at 09/04/2022 10:57 AM Narrative 09/04/2022 10:57 AM EDT EXAMINATION: XR FLUORO BARIUM SWALLOW (MODIFIED/VIDEO SWALLOW PHARYNX) CLINICAL HISTORY: Previous MBS demonstrated significant oropharyngeal dysphagia, clinical condition improved markeldy, reassess Is dysphagia improving? TECHNIQUE: The examination was performed in conjunction with speech pathology. ??Varying consistencies of barium were administered under lateral fluoroscopic observation. Fluoro time: 2.48 minutes COMPARISON: Modified barium swallow 09/01/2019 FINDINGS: The oral phase of swallowing is normal. There is normal elevation of the larynx and slight delay in epiglottic inversion with swallowing. There is penetration of the airway and aspiration with thin liquids. This is especially apparent with rapid sips of thin barium. There is also flash penetration of the airway with nectar thick liquids from a straw. There is pooling of barium within the valleculae which does not fully clear with dry swallows. Residual barium within the esophagus is seen refluxing with swallows toward the end of the study. Procedure Note Alfonso Adams MD - 09/04/2022 EXAMINATION: XR FLUORO BARIUM SWALLOW (MODIFIED/VIDEO SWALLOW PHARYNX) CLINICAL HISTORY: Previous MBS demonstrated significant oropharyngealdysphagia, clinical condition improved markeldy, reassess Is dysphagia improving? TECHNIQUE: The examination was performed in conjunction with speech pathology.Varying consistencies of barium were administered under lateral fluoroscopic observation. Fluoro time: 2.48 minutes COMPARISON: Modified barium swallow 09/01/2019 FINDINGS: The oral phase of swallowing is normal. There is normal elevation of the larynx and slight delay in epiglotticinversion with swallowing. There is penetration of the airway and aspiration with thin liquids. Thisis especially apparent with rapid sips of thin barium. There is also flash penetration of the airway with nectar thick liquids from a straw. There is pooling of barium within the valleculae which does not fullyclear with dry swallows. Residual barium within the esophagus is seen refluxing with swallowstoward the end of the study. IMPRESSION 1. Penetration of the airway and aspiration with thin liquids, especiallywith rapid sips of thin barium. 2. Flash penetration of nectar thick liquids from a straw. 3. Reflux of residual barium within the esophagus on multiple swallows. I have personally reviewed the image(s) and the resident's interpretationand agree with the findings, Alfonso Adams MD at 09/04/2022 10:57 AM Thank you for letting us participate in the care of this patient. If youare a health care provider and have any questions regarding this report,please contact the number below. For patients who have questions please contactthe health acute care physician that requested your imaging first. Electronically signed by: Alfonso Adams MD, [facility]([phone]), at 09/04/2022 10:57 AM Tenisha Sandy MD IMG FLUORO ORDERA BLES * POCT Glucose (09/04/2022 7:18 AM EDT) Glucose, POC 106 65 - 199 mg/dL [facility] Comment: Supplemental ranges: <140 mg/dL before meals <180 mg/dL all other times of the day Blood 09/04/2022 7:18 AM EDT 09/04/2022 7:18 AM EDT Tenisha Sandy MD POINT OF CARE MARIANELA T ORDERABLES Performing Organization Address [facility]/[place] Co de Phone Number [facility] [place] [address] * POCT Glucose (09/04/2022 3:35 AM EDT) Glucose, POC 107 65 - 199 mg/dL [facility] Comment: Supplemental ranges: <140 mg/dL before meals <180 mg/dL all other times of the day Blood 09/04/2022 3:35 AM EDT 09/04/2022 3:35 AM EDT Tenisha Sandy MD POINT OF CARE MARIANELA T ORDERABLES Performing Organization Address City/State/[place] Co [place] [address] * Differential, Automated (09/04/2022 12:26 AM EDT) Pathologist [facility] Neutrophil % 60.2 % [facility] Neutrophil Absolute 4.05 1.70 - 6.10 x10(3)/[facility] Lymph % 27.4 % [facility] Lymphocytes Abs 1.8 0.9 - 3.2 x10(3)/[facility] Monocyte % 5.4 % [facility] Monocyte Abs 0.4 0.3 - 0.9 x10(3)/[facility] Eos % 5.4 % [facility] Eosinophils Abs 0.4 0.0 - 0.4 x10(3)/[facility] Basophil % 1.3 % [facility] Baso Absolute 0.1 0.0 - 0.1 x10(3)/[facility] Immature Gran % 0.30 % [facility] Comment: Immature granulocytes(IG's)percentage and absolute count will include metamyelocytes, myelocytes, and promyelocytes. Blood smears from CBCs yielding IG's will be scanned manually for concordance. If this scan disagrees with the automated IG or if promyelocytes are noted, a manual differential will be performed. Immature Gran Absolute 0.02 0.00 - 0.04 x10(3)/[facility] LABORATORY Blood 09/04/2022 12:2 6 AM EDT 09/04/2022 12:38 AM EDT Narrative Resulting Agency Comment Spec In Lab Tyler Cobb MD [place] [address] * (ABNORMAL) Hemogram (09/04/2022 12:26 AM EDT) [facility] White Blood Cell 6.7 4.0 - 9.5 x10(3)/mc L [facility] Red Blood Cell 3.83(L) 4.00 - 5.21 x10(6)/mc L [facility] Comment:Dimorphic RBC popula tion. Hemoglobin 8.5(L) 11.7 - 15.5 g/dL [facility] Hematocrit 28.1(L) 35.7 - 45.8 % [facility] Mean Cell Volume 73.4(L) 82.6 - 94.4 fL [facility] Mean Cell Hemoglobin 22.2(L) 27.1 - 32.0 pg [facility] Mean Cell Hemoglobin Concentration 30.2(L) 31.7 - 35.0 g/dL [facility] Platelet 300 145 - 357 x10(3)/mc L [facility] RDW Standard Deviation Not Measured 37.0 - 46.0 fL [facility] RDW coefficient of variation Not Measured 11.5 - 14.1 % [facility] Mean Platelet Volume 9.9 7.6 - 12.9 fL [facility] NRBC% auto 0.0 % [facility] ITAL LABORATORY NRBC Absolute 0.000 0.000 - 0.000 x10(3)/mc L [facility] Blood 09/04/2022 12:2 6 AM EDT 09/04/2022 12:38 AM EDT Narrative Resulting Agency Comment Spec In Lab Tyler Cobb MD HEMATOLOGY ORDERABLE S Performing Organization Address City/State/[place] Co de Phone Number [facility] [place] [address] * (ABNORMAL) Basic Metabolic Panel (non-fasting) (09/04/2022 12:26 AM EDT) Glucose 131 65 - 199 mg/dL [facility] Comment:Diabetes: >=200 mg/d L plus symptoms Blood Urea Nitrogen 30(H) 8 - 18 mg/dL [facility] Creatinine 0.53(L) 0.70 - 1.20 mg/dL [facility] Sodium 141 135 - 145 mmol/L [facility] Potassium 4.3 3.5 - 5.0 mmol/L [facility] Comment: Please note: ??Patients with WBC >100,000 may have falsely elevated Potassium levels. ??For accurate Potassium quantification in these patients send serum separator tube (gold top) for subsequent determinations. ??Contact the Clinical Chemistry Laboratory if there are any questions. Chloride 104 98 - 107 mmol/L [facility] Carbon Dioxide 29 22 - 31 mmol/L [facility] Anion Gap 8 5 - 15 mmol/L [facility] Calcium 9.4 8.5 - 10.5 mg/dL [facility] Est Glomerular Filtration Rate 105 >=60 mL/min/1. 73 m?? [facility] Comment: This patient's estimated GFR was [...] and symptoms in addition to eGFR. Blood 09/04/2022 12:2 6 AM EDT 09/04/2022 12:38 AM EDT Narrative Resulting Agency Comment Spec In Lab Richard Pascal MD CHEMISTRY ORDERABLES [facility] [place] [address] * Phosphorus (09/04/2022 12:26 AM EDT) Phosphorus 3.2 2.5 - 4.5 mg/dL [facility] Blood 09/04/2022 12:2 6 AM EDT 09/04/2022 12:38 AM EDT Narrative Resulting Agency Comment Spec In Lab Richard Pascal MD CHEMISTRY ORDERABLES [facility] [place] [address] * Magnesium (09/04/2022 12:26 AM EDT) Magnesium 0.88 0.69 - 1.07 mmol/L [facility] Blood 09/04/2022 12:2 6 AM EDT 09/04/2022 12:38 AM EDT Narrative Resulting Agency Comment Spec In Lab Richard Pascal MD CHEMISTRY ORDERABLES Performing Organization Address [facility]/[place] Co de Phone Number [facility] [place] [address] * POCT Glucose (09/04/2022 12:19 AM EDT) Glucose, POC 125 65 - 199 mg/dL [facility] Comment: Supplemental ranges: <140 mg/dL before meals <180 mg/dL all other times of the day Blood 09/04/2022 12:1 9 AM EDT 09/04/2022 12:19 AM EDT Tenisha Sandy MD POINT OF CARE MARIANELA T ORDERABLES Performing Organization Address [facility]/[place] Co de Phone Number [facility] [place] [address] * POCT Glucose (09/03/2022 7:30 PM EDT) Glucose, POC 166 65 - 199 mg/dL [facility] Comment: Supplemental ranges: <140 mg/dL before meals <180 mg/dL all other times of the day Blood 09/03/2022 7:30 PM EDT 09/03/2022 7:30 PM EDT Tenisha Sandy MD POINT OF CARE MARIANELA T ORDERABLES Performing Organization Address [facility]/[place] Co de Phone Number [facility] [place] [address] * (ABNORMAL) POCT Glucose (09/03/2022 4:00 PM EDT) Glucose, POC 207(H) 65 - 199 mg/dL [facility] Comment: Supplemental ranges: <140 mg/dL before meals <180 mg/dL all other times of the day Blood 09/03/2022 4:00 PM EDT 09/03/2022 4:00 PM EDT Tenisha Sandy MD POINT OF CARE MARIANELA T ORDERABLES [facility] [place] [address] * (ABNORMAL) POCT Glucose (09/03/2022 12:43 PM EDT) Glucose, POC 207(H) 65 - 199 mg/dL [facility] Comment: Supplemental ranges: <140 mg/dL before meals <180 mg/dL all other times of the day Blood 09/03/2022 12:4 3 PM EDT 09/03/2022 12:43 PM EDT Tenisha Sandy MD POINT OF CARE MARIANELA T ORDERABLES Performing Organization Address [facility]/[place] Co de Phone Number [facility] [place] [address] * POCT Glucose (09/03/2022 7:48 AM EDT) Glucose, POC 173 65 - 199 mg/dL [facility] Comment: Supplemental ranges: <140 mg/dL before meals <180 mg/dL all other times of the day Blood 09/03/2022 7:48 AM EDT 09/03/2022 7:48 AM EDT Tenisha Sandy MD POINT OF CARE MARAINELA T ORDERABLES Performing Organization Address [facility]/[place] Co de Phone Number [facility] [place] [address] * POCT Glucose (09/03/2022 4:52 AM EDT) Glucose, POC 91 65 - 199 mg/dL [facility] Comment: Supplemental ranges: <140 mg/dL before meals <180 mg/dL all other times of the day Blood 09/03/2022 4:52 AM EDT 09/03/2022 4:52 AM EDT Tenisha Sandy MD POINT OF CARE MARIANELA T ORDERABLES Performing Organization Address City/[facility]/ZIP Co de Phone Number [facility] [place] [address] * Differential, Automated (09/03/2022 12:40 AM EDT) Pathologist [facility] Neutrophil % 42.9 % [facility] Neutrophil Absolute 2.19 1.70 - 6.10 x10(3)/[facility] LABORATORY Lymph % 38.0 % [facility] LAB[facility] Lymphocytes Abs 1.9 0.9 - 3.2 x10(3)/[facility] LABORATORY Monocyte % 11.6 % [facility] ITAL LABORATORY Monocyte Abs 0.6 0.3 - 0.9 x10(3)/[facility] LABORATORY Eos % 5.7 % [facility] LAB[facility] Eosinophils Abs 0.3 0.0 - 0.4 x10(3)/[facility] LABORATORY Basophil % 1.6 % [facility] LABORATORY Baso Absolute 0.1 0.0 - 0.1 x10(3)/[facility] LABORATORY Immature Gran % 0.20 % [facility] Comment: Immature granulocytes(IG's)percentage and absolute count will include metamyelocytes, myelocytes, and promyelocytes. Blood smears from CBCs yielding IG's will be scanned manually for concordance. If this scan disagrees with the automated IG or if promyelocytes are noted, a manual differential will be performed. Immature Gran Absolute 0.01 0.00 - 0.04 x10(3)/[facility] LABORATORY Blood 09/03/2022 12:4 0 AM EDT 09/03/2022 12:51 AM EDT Narrative Resulting Agency Comment Spec In Lab Tyler Cobb MD HEMATOLOGY ORDERABLE S [facility] [place] [address] * (ABNORMAL) Hemogram (09/03/2022 12:40 AM EDT) Pathologist [facility] White Blood Cell 5.1 4.0 - 9.5 x10(3)/ L [facility] Red Blood Cell 3.75(L) 4.00 - 5.21 x10(6)/[facility] LABORATORY Comment:Dimorphic RBC popula tion. Hemoglobin 8.4(L) 11.7 - 15.5 g/dL [facility] Hematocrit 27.1(L) 35.7 - 45.8 % [facility] Mean Cell Volume 72.3(L) 82.6 - 94.4 fL [facility] Mean Cell Hemoglobin 22.4(L) 27.1 - 32.0 pg [facility] Mean Cell Hemoglobin Concentration 31.0(L) 31.7 - 35.0 g/dL [facility] Platelet 305 145 - 357 x10(3)/mc L [facility] RDW Standard Deviation Not Measured 37.0 - 46.0 fL [facility] RDW coefficient of variation Not Measured 11.5 - 14.1 % [facility] Mean Platelet Volume 9.8 7.6 - 12.9 fL [facility] NRBC% auto 0.0 % [facility] ITAL LABORATORY NRBC Absolute 0.000 0.000 - 0.000 x10(3)/mc L [facility] Blood 09/03/2022 12:4 0 AM EDT 09/03/2022 12:51 AM EDT Narrative Resulting Agency Comment Spec In Lab Tyler Cobb MD HEMATOLOGY ORDERABLE S [facility] [place] [address] * (ABNORMAL) Basic Metabolic Panel (non-fasting) (09/03/2022 12:40 AM EDT) Glucose 107 65 - 199 mg/dL [facility] Comment:Diabetes: >=200 mg/d L plus symptoms Blood Urea Nitrogen 28(H) 8 - 18 mg/dL [facility] Creatinine 0.49(L) 0.70 - 1.20 mg/dL [facility] Sodium 138 135 - 145 mmol/L [facility] Potassium 4.1 3.5 - 5.0 mmol/L [facility] Comment: Please note: ??Patients with WBC >100,000 may have falsely elevated Potassium levels. ??For accurate Potassium quantification in these patients send serum separator tube (gold top) for subsequent determinations. ??Contact the Clinical Chemistry Laboratory if there are any questions. Chloride 102 98 - 107 mmol/L [facility] Carbon Dioxide 29 22 - 31 mmol/L [facility] Anion Gap 7 5 - 15 mmol/L [facility] Calcium 9.2 8.5 - 10.5 mg/dL [facility] Est Glomerular Filtration Rate 106 >=60 mL/min/1. 73 m?? [facility] Comment: This patient's estimated GFR was [...] and symptoms in addition to eGFR. Blood 09/03/2022 12:4 0 AM EDT 09/03/2022 12:51 AM EDT Narrative Resulting Agency Comment Spec In Lab Richard Pascal MD CHEMISTRY ORDERABLES Performing Organization Address [facility]/[place] Co de Phone Number [facility] [place] [address] * Phosphorus (09/03/2022 12:40 AM EDT) Phosphorus 3.4 2.5 - 4.5 mg/dL [facility] Blood 09/03/2022 12:4 0 AM EDT 09/03/2022 12:51 AM EDT Narrative Resulting Agency Comment Spec In Lab Richard Pascal MD CHEMISTRY ORDERABLES Performing Organization Address [facility]/[place] Co de Phone Number [facility] [place] [address] * Magnesium (09/03/2022 12:40 AM EDT) Magnesium 0.96 0.69 - 1.07 mmol/L [facility] Blood 09/03/2022 12:4 0 AM EDT 09/03/2022 12:51 AM EDT Narrative Resulting Agency Comment Spec In Lab Richard Pascal MD CHEMISTRY ORDERABLES [facility] [place] [address] * POCT Glucose (09/02/2022 11:05 PM EDT) Glucose, POC 106 65 - 199 mg/dL [facility] Comment: Supplemental ranges: <140 mg/dL before meals <180 mg/dL all other times of the day Blood 09/02/2022 11:0 5 PM EDT 09/02/2022 11:05 PM EDT Tenisha Sandy MD POINT OF CARE MARIANELA T ORDERABLES Performing Organization Address [facility]/[place] Co de Phone Number [facility] [place] [address] * POCT Glucose (09/02/2022 8:05 PM EDT) Glucose, POC 107 65 - 199 mg/dL [facility] Comment: Supplemental ranges: <140 mg/dL before meals <180 mg/dL all other times of the day Blood 09/02/2022 8:05 PM EDT 09/02/2022 8:05 PM EDT Tenisha Sandy MD POINT OF CARE MARIANELA T ORDERABLES Performing Organization Address City/[facility]/ZIP Co de Phone Number [facility] [place] [address] * POCT Glucose (09/02/2022 4:22 PM EDT) Glucose, POC 183 65 - 199 mg/dL [facility] Comment: Supplemental ranges: <140 mg/dL before meals <180 mg/dL all other times of the day Blood 09/02/2022 4:22 PM EDT 09/02/2022 4:22 PM EDT Tenisha Sandy MD POINT OF CARE MARIANELA T ORDERABLES [facility] [place] [address] * POCT Glucose (09/02/2022 12:22 PM EDT) Glucose, POC 194 65 - 199 mg/dL [facility] Comment: Supplemental ranges: <140 mg/dL before meals <180 mg/dL all other times of the day Blood 09/02/2022 12:2 2 PM EDT 09/02/2022 12:22 PM EDT Tenisha Sandy MD POINT OF CARE MARIANELA T ORDERABLES [facility] [place] [address] * POCT Glucose (09/02/2022 7:49 AM EDT) Glucose, POC 141 65 - 199 mg/dL [facility] Comment: Supplemental ranges: <140 mg/dL before meals <180 mg/dL all other times of the day Blood 09/02/2022 7:49 AM EDT 09/02/2022 7:49 AM EDT Tenisha Sandy MD POINT OF CARE MARIANELA T ORDERABLES [facility] [place] [address] * POCT Glucose (09/02/2022 5:43 AM EDT) Glucose, POC 102 65 - 199 mg/dL [facility] Comment: Supplemental ranges: <140 mg/dL before meals <180 mg/dL all other times of the day Blood 09/02/2022 5:43 AM EDT 09/02/2022 5:43 AM EDT Tenisha Sandy MD POINT OF CARE MARIANELA T ORDERABLES [facility] [place] [address] * POCT Glucose (09/02/2022 3:44 AM EDT) Glucose, POC 112 65 - 199 mg/dL [facility] Comment: Supplemental ranges: <140 mg/dL before meals <180 mg/dL all other times of the day Blood 09/02/2022 3:44 AM EDT 09/02/2022 3:44 AM EDT Tenisha Sandy MD POINT OF CARE MARIANELA T ORDERABLES Performing Organization Address [facility]/[place] Co de Phone Number [facility] [place] [address] * (ABNORMAL) Reticulocyte Count (09/02/2022 1:05 AM EDT) [facility] Reticulocyte % 2.2 0.7 - 2.5 % [facility] Retic Abs # 0.080 0.020 - 0.110 x10(6)/[facility] LABORATORY Immature Retic% 45.2(H) 0.5 - 13.8 % [facility] Reticulated Hgb 22.9(L) 29.8 - 39.4 pg [facility] Blood Venous Draw / Unknown 09/02/2022 1:05 AM EDT 09/02/2022 1:19 AM EDT Narrative Resulting Agency Comment Spec In Lab Irwin Jones MD HEMATOLOGY ORDERAB LES Performing Organization Address [facility]/[place] Co de Phone Number [facility] [place] [address] * Differential, Automated (09/02/2022 1:05 AM EDT) [facility] Neutrophil % 48.4 % [facility] Neutrophil Absolute 2.83 1.70 - 6.10 x10(3)/[facility] LABORATORY Lymph % 34.6 % [facility] Lymphocytes Abs 2.0 0.9 - 3.2 x10(3)/[facility] LABORATORY Monocyte % 10.4 % [facility] IT[facility] LABORATORY Monocyte Abs 0.6 0.3 - 0.9 x10(3)/[facility] LABORATORY Eos % 4.8 % [facility] Eosinophils Abs 0.3 0.0 - 0.4 x10(3)/[facility] LABORATORY Basophil % 1.5 % [facility] ITAL LABORATORY Baso Absolute 0.1 0.0 - 0.1 x10(3)/[facility] LABORATORY Immature Gran % 0.30 % [facility] Comment: Immature granulocytes(IG's)percentage and absolute count will include metamyelocytes, myelocytes, and promyelocytes. Blood smears from CBCs yielding IG's will be scanned manually for concordance. If this scan disagrees with the automated IG or if promyelocytes are noted, a manual differential will be performed. Immature Gran Absolute 0.02 0.00 - 0.04 x10(3)/[facility] LABORATORY Blood 09/02/2022 1:05 AM EDT 09/02/2022 1:19 AM EDT Narrative Resulting Agency Comment Spec In Lab Tyler Cobb MD HEMATOLOGY ORDERABLE S [facility] [place] [address] * (ABNORMAL) Hemogram (09/02/2022 1:05 AM EDT) White Blood Cell 5.9 4.0 - 9.5 x10(3)/[facility] LABORATORY Red Blood Cell 3.81(L) 4.00 - 5.21 x10(6)/[facility] LABORATORY Comment: CORRECTION: ADDING COMMENT : Dimorphic RBC population. Corrected from 3.81 x10(6)/[facility] [LOW] on 09/02/22 11:26:40 EDT by Jigar Palmer Hemoglobin 8.3(L) 11.7 - 15.5 g/dL [facility] Hematocrit 27.7(L) 35.7 - 45.8 % [facility] Mean Cell Volume 72.7(L) 82.6 - 94.4 fL [facility] Mean Cell Hemoglobin 21.8(L) 27.1 - 32.0 pg [facility] Mean Cell Hemoglobin Concentration 30.0(L) 31.7 - 35.0 g/dL [facility] Platelet 344 145 - 357 x10(3)/ L [facility] RDW Standard Deviation Not Measured 37.0 - 46.0 fL [facility] RDW coefficient of variation Not Measured 11.5 - 14.1 % [facility] Mean Platelet Volume 9.8 7.6 - 12.9 fL [facility] NRBC% auto 0.0 % [facility] ITAL LABORATORY NRBC Absolute 0.000 0.000 - 0.000 x10(3)/mc L [facility] Blood 09/02/2022 1:05 AM EDT 09/02/2022 1:19 AM EDT Narrative Resulting Agency Comment Spec In Lab Tyler Cobb MD HEMATOLOGY ORDERABLE S [facility] [place] [address] * (ABNORMAL) Basic Metabolic Panel (non-fasting) (09/02/2022 1:05 AM EDT) Glucose 114 65 - 199 mg/dL [facility] Comment:Diabetes: >=200 mg/d L plus symptoms Blood Urea Nitrogen 30(H) 8 - 18 mg/dL [facility] Creatinine 0.52(L) 0.70 - 1.20 mg/dL [facility] Sodium 136 135 - 145 mmol/L [facility] Potassium 4.4 3.5 - 5.0 mmol/L [facility] Comment: Please note: ??Patients with WBC >100,000 may have falsely elevated Potassium levels. ??For accurate Potassium quantification in these patients send serum separator tube (gold top) for subsequent determinations. ??Contact the Clinical Chemistry Laboratory if there are any questions. Chloride 100 98 - 107 mmol/L [facility] Carbon Dioxide 30 22 - 31 mmol/L [facility] Anion Gap 6 5 - 15 mmol/L [facility] Calcium 9.5 8.5 - 10.5 mg/dL [facility] Est Glomerular Filtration Rate 105 >=60 mL/min/1. 73 m?? [facility] Comment: This patient's estimated GFR was [...] and symptoms in addition to eGFR. Blood 09/02/2022 1:05 AM EDT 09/02/2022 1:19 AM EDT Narrative Resulting Agency Comment Spec In Lab Richard Pascal MD CHEMISTRY ORDERABLES [facility] [place] [address] * Phosphorus (09/02/2022 1:05 AM EDT) Phosphorus 3.9 2.5 - 4.5 mg/dL [facility] Blood 09/02/2022 1:05 AM EDT 09/02/2022 1:19 AM EDT Narrative Resulting Agency Comment Spec In Lab Richard Pascal MD CHEMISTRY ORDERABLES Performing Organization Address City/[facility]/ZIP Co de Phone Number [facility] [place] [address] * Magnesium (09/02/2022 1:05 AM EDT) Magnesium 0.87 0.69 - 1.07 mmol/L [facility] Blood 09/02/2022 1:05 AM EDT 09/02/2022 1:19 AM EDT Narrative Resulting Agency Comment Spec In Lab Richard Pascal MD CHEMISTRY ORDERABLES Performing Organization Address City/[facility]/ZIP Co de Phone Number [facility] [place] [address] * POCT Glucose (09/02/2022 12:51 AM EDT) Glucose, POC 110 65 - 199 mg/dL [facility] Comment: Supplemental ranges: <140 mg/dL before meals <180 mg/dL all other times of the day Blood 09/02/2022 12:5 1 AM EDT 09/02/2022 12:51 AM EDT Tenisha Sandy MD POINT OF CARE MARIANELA T ORDERABLES Performing Organization Address City/[facility]/[place] Co de Phone Number [facility] [place] [address] * POCT Glucose (09/01/2022 8:11 PM EDT) Glucose, POC 93 65 - 199 mg/dL [facility] Comment: Supplemental ranges: <140 mg/dL before meals <180 mg/dL all other times of the day Blood 09/01/2022 8:11 PM EDT 09/01/2022 8:11 PM EDT Tenisha Sandy MD POINT OF CARE MARIANELA T ORDERABLES Performing Organization Address [facility]/[place] Co de Phone Number [facility] [place] [address] * POCT Glucose (09/01/2022 5:41 PM EDT) Glucose, POC 170 65 - 199 mg/dL [facility] Comment: Supplemental ranges: <140 mg/dL before meals <180 mg/dL all other times of the day Blood 09/01/2022 5:41 PM EDT 09/01/2022 5:41 PM EDT Tenisha Sandy MD POINT OF CARE MARIANELA T ORDERABLES Performing Organization Address City/[facility]/[place] Co de Phone Number [facility] [place] [address] * POCT Glucose (09/01/2022 11:33 AM EDT) Glucose, POC 171 65 - 199 mg/dL [facility] Comment: Supplemental ranges: <140 mg/dL before meals <180 mg/dL all other times of the day Blood 09/01/2022 11:3 3 AM EDT 09/01/2022 11:33 AM EDT Tenisha Sandy MD POINT OF CARE MARIANELA T ORDERABLES Performing Organization Address City/[facility]/ZIP Co de Phone Number [facility] [place] [address] * POCT Glucose (09/01/2022 7:55 AM EDT) Glucose, POC 166 65 - 199 mg/dL [facility] Comment: Supplemental ranges: <140 mg/dL before meals <180 mg/dL all other times of the day Blood 09/01/2022 7:55 AM EDT 09/01/2022 7:55 AM EDT Tenisha Sandy MD POINT OF CARE MARIANELA T ORDERABLES Performing Organization Address [facility]/[place] Co de Phone Number [facility] [place] [address] * POCT Glucose (09/01/2022 3:29 AM EDT) Glucose, POC 87 65 - 199 mg/dL [facility] Comment: Supplemental ranges: <140 mg/dL before meals <180 mg/dL all other times of the day Blood 09/01/2022 3:29 AM EDT 09/01/2022 3:29 AM EDT Tenisha Sandy MD POINT OF CARE MARIANELA T ORDERABLES Performing Organization Address City/[facility]/[place] Co de Phone Number [facility] [place] [address] * EKG 12 Lead (09/01/2022 2:24 AM EDT) Ventricular rate 80 BPM MUSE SYSTEM Atrial Rate 80 BPM MUSE SYSTEM P-R Interval 150 ms MUSE SYSTEM QRS Duration 76 ms MUSE SYSTEM Q-T Interval 412 ms MUSE SYSTEM QTC Calculated (Bezet) 475 ms MUSE SYSTEM Calculated P [place] 50 degrees MUSE SYSTEM Calculated R [place] 70 degrees MUSE SYSTEM Calculated T [place] 174 degrees MUSE SYSTEM INTERPRETATION Normal sinus rhythm T wave abnormality, consider inferior ischemia T wave abnormality, consider anterolateral ischemia Prolonged QT Abnormal ECG When compared with ECG of 16-AUG-2022 03:24, Criteria for Septal infarct are no longer Present T wave inversion less evident in Inferior leads Confirmed by MD Amada, Tae ([id number]) on 09/01/2022 4:28:11 PM MUSE SYSTEM 09/01/2022 2:24 AM EDT 09/01/2022 4:28 PM EDT Tenisha Sandy MD ECG ORDERABLES Performing Organization Address City/[facility]/ZIP Co de Phone Number MUSE SYSTEM * Scan, Peripheral Blood (09/01/2022 2:10 AM EDT) Plat estimate Increased [facility] RBC Morphology Abnormal [facility] Macrocyte 1-5 /HPF [facility] Microcyte 6-10 /HPF [facility] Hypochromia Slight [facility] Polychromasia Present >5/HPF [facility] Ovalocytes 1-5 /HPF [facility] ITAL LABORATORY Target Cells 1-5 /HPF [facility] LABORATORY Randolph Cells 6-10 /HPF [facility] ITAL LABORATORY Plat, Giant Less than 1 /HPF [facility] LAB[facility]ORY Blood 09/01/2022 2:10 AM EDT 09/01/2022 2:15 AM EDT Narrative Resulting Agency Comment Spec In Lab Tyler Cobb MD HEMATOLOGY ORDERABLE S Performing Organization Address City/[facility]/ZIP Co de Phone Number [facility] [place] [address] * Differential, Automated (09/01/2022 2:10 AM EDT) Neutrophil % 46.0 % [facility] SPITAL LABORATORY Neutrophil Absolute 2.52 1.70 - 6.10 x10(3)/[facility] HOSPITAL LABORATORY Lymph % 37.1 % [facility] Lymphocytes Abs 2.0 0.9 - 3.2 x10(3)/[facility] LABORATORY Monocyte % 10.1 % [facility] ITAL LABORATORY Monocyte Abs 0.6 0.3 - 0.9 x10(3)/[facility] LABORATORY Eos % 5.3 % [facility] Eosinophils Abs 0.3 0.0 - 0.4 x10(3)/[facility] LABORATORY Basophil % 1.3 % [facility] HOSP ITAL LABORATORY Baso Absolute 0.1 0.0 - 0.1 x10(3)/[facility] LABORATORY Immature Gran % 0.20 % [facility] Comment: Immature granulocytes(IG's)percentage and absolute count will include metamyelocytes, myelocytes, and promyelocytes. Blood smears from CBCs yielding IG's will be scanned manually for concordance. If this scan disagrees with the automated IG or if promyelocytes are noted, a manual differential will be performed. Immature Gran Absolute 0.01 0.00 - 0.04 x10(3)/[facility] LABORATORY Blood 09/01/2022 2:10 AM EDT 09/01/2022 2:15 AM EDT Narrative Resulting Agency Comment Spec In Lab Tyler Cobb MD HEMATOLOGY ORDERABLE S [facility] [place] [address] * (ABNORMAL) Hemogram (09/01/2022 2:10 AM EDT) White Blood Cell 5.5 4.0 - 9.5 x10(3)/[facility] LABORATORY Red Blood Cell 3.95(L) 4.00 - 5.21 x10(6)/[facility] LABORATORY Comment:Dimorphic RBC popula tion. Hemoglobin 8.7(L) 11.7 - 15.5 g/dL [facility] Hematocrit 28.5(L) 35.7 - 45.8 % [facility] Mean Cell Volume 72.2(L) 82.6 - 94.4 fL [facility] Mean Cell Hemoglobin 22.0(L) 27.1 - 32.0 pg [facility] Mean Cell Hemoglobin Concentration 30.5(L) 31.7 - 35.0 g/dL [facility] Platelet 361(H) 145 - 357 x10(3)/[facility] LABORATORY RDW Standard Deviation Not Measured 37.0 - 46.0 fL [facility] RDW coefficient of variation Not Measured 11.5 - 14.1 % [facility] Mean Platelet Volume 9.5 7.6 - 12.9 fL [facility] HOSPITAL LABORATORY NRBC% auto 0.0 % [facility] HOSP ITAL LABORATORY NRBC Absolute 0.000 0.000 - 0.000 x10(3)/mc L [facility] Blood 09/01/2022 2:10 AM EDT 09/01/2022 2:15 AM EDT Narrative Resulting Agency Comment Spec In Lab Tyler Cobb MD HEMATOLOGY ORDERABLE S [facility] [place] [address] * (ABNORMAL) Basic Metabolic Panel (non-fasting) (09/01/2022 2:10 AM EDT) Glucose 86 65 - 199 mg/dL [facility] Comment:Diabetes: >=200 mg/d L plus symptoms Blood Urea Nitrogen 29(H) 8 - 18 mg/dL [facility] Creatinine 0.51(L) 0.70 - 1.20 mg/dL [facility] Sodium 140 135 - 145 mmol/L [facility] Potassium 4.6 3.5 - 5.0 mmol/L [facility] Comment: Please note: ??Patients with WBC >100,000 may have falsely elevated Potassium levels. ??For accurate Potassium quantification in these patients send serum separator tube (gold top) for subsequent determinations. ??Contact the Clinical Chemistry Laboratory if there are any questions. Chloride 104 98 - 107 mmol/L [facility] Carbon Dioxide 29 22 - 31 mmol/L [facility] Anion Gap 7 5 - 15 mmol/L [facility] Calcium 9.4 8.5 - 10.5 mg/dL [facility] Est Glomerular Filtration Rate 105 >=60 mL/min/1. 73 m?? [facility] Comment: This patient's estimated GFR was [...] and symptoms in addition to eGFR. Blood 09/01/2022 2:10 AM EDT 09/01/2022 2:15 AM EDT Narrative Resulting Agency Comment Spec In Lab Richard Pascal MD CHEMISTRY ORDERABLES Performing Organization Address [facility] Co de Phone Number [facility] [place] [address] * Phosphorus (09/01/2022 2:10 AM EDT) Phosphorus 4.3 2.5 - 4.5 mg/dL [facility] Blood 09/01/2022 2:10 AM EDT 09/01/2022 2:15 AM EDT Narrative Resulting Agency Comment Spec In Lab Richard Pascal MD CHEMISTRY ORDERABLES Performing Organization Address [facility]/[place] Co de Phone Number [facility] [place] [address] * Magnesium (09/01/2022 2:10 AM EDT) Magnesium 0.94 0.69 - 1.07 mmol/L [facility] Blood 09/01/2022 2:10 AM EDT 09/01/2022 2:15 AM EDT Narrative Resulting Agency Comment Spec In Lab Richard Pascal MD CHEMISTRY ORDERABLES Performing Organization Address [facility] Co de Phone Number [facility] [place] [address] * POCT Glucose (08/31/2022 11:46 PM EDT) Glucose, POC 93 65 - 199 mg/dL [facility] Comment: Supplemental ranges: <140 mg/dL before meals <180 mg/dL all other times of the day Blood 08/31/2022 11:4 6 PM EDT 08/31/2022 11:46 PM EDT Tenisha Sandy MD POINT OF CARE MARIANELA T ORDERABLES Performing Organization Address City/[facility] Co de Phone Number [facility] [place] [address] * POCT Glucose (08/31/2022 8:12 PM EDT) Glucose, POC 110 65 - 199 mg/dL [facility] Comment: Supplemental ranges: <140 mg/dL before meals <180 mg/dL all other times of the day Blood 08/31/2022 8:12 PM EDT 08/31/2022 8:12 PM EDT Tenisha Sandy MD POINT OF CARE MARIANELA T ORDERABLES Performing Organization Address [facility] Co de Phone Number [facility] [place] [address] * (ABNORMAL) POCT Glucose (08/31/2022 4:32 PM EDT) Glucose, POC 206(H) 65 - 199 mg/dL [facility] Comment: Supplemental ranges: <140 mg/dL before meals <180 mg/dL all other times of the day Blood 08/31/2022 4:32 PM EDT 08/31/2022 4:32 PM EDT Tenisha Sandy MD POINT OF CARE MARIANELA T ORDERABLES Performing Organization Address [facility] Co de Phone Number [facility] [place] [address] * POCT Glucose (08/31/2022 11:42 AM EDT) Glucose, POC 163 65 - 199 mg/dL [facility] Comment: Supplemental ranges: <140 mg/dL before meals <180 mg/dL all other times of the day Blood 08/31/2022 11:4 2 AM EDT 08/31/2022 11:42 AM EDT Tenisha Sanyd MD POINT OF CARE MARIANELA T ORDERABLES Performing Organization Address City/[facility]/ZIP Co de Phone Number [facility] [place] [address] * XR Fluoro Barium Swallow (Modified/Video Swallow Pharynx) (08/31/2022 11:23 AM EDT) Anatomical Region Laterality Modality N/A Radio Fluoroscop y Impressions 08/31/2022 12:02 PM EDT Abnormal modified barium swallow as above. Please see speech pathology report for further discussion. Thank you for letting us participate in the care of this patient. ??If you are a health care provider and have any questions regarding this report, please contact the number below. ??For patients who have questions please contact the health acute care physician that requested your imaging first. ? Electronically signed by: Aron Billings MD, [facility] ([phone]), at 08/31/2022 12:02 PM Narrative 08/31/2022 12:02 PM EDT EXAMINATION: XR FLUORO BARIUM SWALLOW (MODIFIED/VIDEO SWALLOW PHARYNX) CLINICAL HISTORY: recently intubated, f/u concern for aspiration TECHNIQUE: The examination was performed in conjunction with speech pathology. ??Varying consistencies of barium were administered under lateral fluoroscopic observation. Fluoro time: 2.32 minutes. COMPARISON: None FINDINGS: A feeding tube is present. The oral phase of swallowing is normal. The swallow is globally, subjectively weak. There is delayed elevation of the larynx long term between the vallecula and piriform sinuses. It is a bit more timely with pudding consistency then with thin or nectar. The epiglottis does not fully invert with thin or nectar consistency but does invert with pudding thick although delayed. There is laryngeal penetration and aspiration with thin consistency. There is penetration and pooling with nectar consistency. With pudding consistency there is more complete epiglottic inversion and a slightly more rapid swallow trigger but there is pooling with delayed aspiration of the pooled material. Procedure Note Aron Billings MD - 08/31/2022 EXAMINATION: XR FLUORO BARIUM SWALLOW (MODIFIED/VIDEO SWALLOW PHARYNX) CLINICAL HISTORY: recently intubated, f/u concern for aspiration TECHNIQUE: The examination was performed in conjunction with speech pathology.Varying consistencies of barium were administered under lateral fluoroscopic observation. Fluoro time: 2.32 minutes. COMPARISON: None FINDINGS: A feeding tube is present. The oral phase of swallowing is normal. The swallow is globally, subjectively weak. There is delayed elevation of the larynx long term between the valleculaand piriform sinuses. It is a bit more timely with pudding consistency thenwith thin or nectar. The epiglottis does not fully invert with thin or nectar consistency butdoes invert with pudding thick although delayed. There is laryngeal penetration and aspiration with thin consistency. There is penetration and pooling with nectar consistency. With pudding consistency there is more complete epiglottic inversion mehul slightly more rapid swallow trigger but there is pooling with delayedaspiration of the pooled material. IMPRESSION Abnormal modified barium swallow as above. Please see speech pathology report for further discussion. Thank you for letting us participate in the care of this patient. If youare a health care provider and have any questions regarding this report,please contact the number below. For patients who have questions please contactthe health acute care physician that requested your imaging first. Electronically signed by: Aron Billings MD, [facility]([phone]), at 08/31/2022 12:02 PM Milagros Hernandez MD IMG FLUORO ORDERABLE S * POCT Glucose (08/31/2022 7:36 AM EDT) Glucose, POC 116 65 - 199 mg/dL [facility] Comment: Supplemental ranges: <140 mg/dL before meals <180 mg/dL all other times of the day Blood 08/31/2022 7:36 AM EDT 08/31/2022 7:36 AM EDT Alfonso Navarrete MD POINT OF CARE [place] [address] * Differential, Automated (08/31/2022 4:30 AM EDT) Neutrophil % 59.8 % [facility] SPITAL LABORATORY Neutrophil Absolute 4.03 1.70 - 6.10 x10(3)/[facility] LABORATORY Lymph % 26.3 % [facility] Lymphocytes Abs 1.8 0.9 - 3.2 x10(3)/[facility] LABORATORY Monocyte % 7.9 % [facility] LABORATORY Monocyte Abs 0.5 0.3 - 0.9 x10(3)/[facility] LABORATORY Eos % 4.7 % [facility] LABORATORY Eosinophils Abs 0.3 0.0 - 0.4 x10(3)/[facility] LABORATORY Basophil % 1.0 % [facility] LABORATORY Baso Absolute 0.1 0.0 - 0.1 x10(3)/[facility] LABORATORY Immature Gran % 0.30 % [facility] Comment: Immature granulocytes(IG's)percentage and absolute count will include metamyelocytes, myelocytes, and promyelocytes. Blood smears from CBCs yielding IG's will be scanned manually for concordance. If this scan disagrees with the automated IG or if promyelocytes are noted, a manual differential will be performed. Immature Gran Absolute 0.02 0.00 - 0.04 x10(3)/[facility] LABORATORY Blood 08/31/2022 4:30 AM EDT 08/31/2022 4:36 AM EDT Narrative Resulting Agency Comment Spec In Lab Tyler Cobb MD [place] [address] * (ABNORMAL) Hemogram (08/31/2022 4:30 AM EDT) White Blood Cell 6.7 4.0 - 9.5 x10(3)/mc L [facility] Red Blood Cell 3.97(L) 4.00 - 5.21 x10(6)/mc L [facility] Comment:Dimorphic RBC popula tion. Hemoglobin 8.7(L) 11.7 - 15.5 g/dL [facility] H[facility]PITAL LAB[facility] Hematocrit 29.2(L) 35.7 - 45.8 % [facility] H[facility]PITAL [facility] Mean Cell Volume 73.6(L) 82.6 - 94.4 fL [facility] Mean Cell Hemoglobin 21.9(L) 27.1 - 32.0 pg [facility] Mean Cell Hemoglobin Concentration 29.8(L) 31.7 - 35.0 g/dL [facility] Platelet 330 145 - 357 x10(3)/mc L [facility] RDW Standard Deviation Not Measured 37.0 - 46.0 fL [facility] RDW coefficient of variation Not Measured 11.5 - 14.1 % [facility] Mean Platelet Volume 9.8 7.6 - 12.9 fL [facility] NRBC% auto 0.0 % [facility] ITAL LABORATORY NRBC Absolute 0.000 0.000 - 0.000 x10(3)/mc L [facility] Blood 08/31/2022 4:30 AM EDT 08/31/2022 4:36 AM EDT Narrative Resulting Agency Comment Spec In Lab Tyler Cobb MD HEMATOLOGY ORDERABLE S Performing Organization Address City/[facility]/ZIP Co de Phone Number [facility] [place] [address] * Phosphorus (08/31/2022 4:30 AM EDT) Phosphorus 3.4 2.5 - 4.5 mg/dL [facility] Blood 08/31/2022 4:30 AM EDT 08/31/2022 4:36 AM EDT Narrative Resulting Agency Comment Spec In Lab Richard Pascal MD CHEMISTRY ORDERABLES Performing Organization Address City/[facility]/ZIP Co de Phone Number [facility] [place] [address] * Magnesium (08/31/2022 4:30 AM EDT) Magnesium 0.81 0.69 - 1.07 mmol/L [facility] Blood 08/31/2022 4:30 AM EDT 08/31/2022 4:36 AM EDT Narrative Resulting Agency Comment Spec In Lab Richard Pascal MD CHEMISTRY ORDERABLES Performing Organization Address [facility]/[place] Co de Phone Number [facility] [place] [address] * POCT Glucose (08/31/2022 4:08 AM EDT) Glucose, POC 88 65 - 199 mg/dL [facility] Comment: Supplemental ranges: <140 mg/dL before meals <180 mg/dL all other times of the day Blood 08/31/2022 4:08 AM EDT 08/31/2022 4:08 AM EDT Alfonso Navarrete MD POINT OF CARE TEST O RDERABLES Performing Organization Address [facility] Co de Phone Number [facility] [place] [address] * POCT Glucose (08/31/2022 12:03 AM EDT) Glucose, POC 98 65 - 199 mg/dL [facility] Comment: Supplemental ranges: <140 mg/dL before meals <180 mg/dL all other times of the day Blood 08/31/2022 12:0 3 AM EDT 08/31/2022 12:03 AM EDT Alfonso Navarrete MD POINT OF CARE TEST O RDERABLES Performing Organization Address [facility] Co de Phone Number [facility] [place] [address] * POCT Glucose (08/30/2022 7:58 PM EDT) Glucose, POC 131 65 - 199 mg/dL [facility] Comment: Supplemental ranges: <140 mg/dL before meals <180 mg/dL all other times of the day Blood 08/30/2022 7:58 PM EDT 08/30/2022 7:58 PM EDT Alfonso Navarrete MD POINT OF CARE TEST O RDERABLES Performing Organization Address [facility]/[place] Co de Phone Number [facility] [place] [address] * POCT Glucose (08/30/2022 4:59 PM EDT) Glucose, POC 169 65 - 199 mg/dL [facility] Comment: Supplemental ranges: <140 mg/dL before meals <180 mg/dL all other times of the day Blood 08/30/2022 4:59 PM EDT 08/30/2022 4:59 PM EDT Roland Pruett MD POINT OF CARE TEST O RDERABLES Performing Organization Address [facility] Co de Phone Number [facility] [place] [address] * POCT Glucose (08/30/2022 11:29 AM EDT) Glucose, POC 168 65 - 199 mg/dL [facility] Comment: Supplemental ranges: <140 mg/dL before meals <180 mg/dL all other times of the day Blood 08/30/2022 11:2 9 AM EDT 08/30/2022 11:29 AM EDT Roland Pruett MD POINT OF CARE TEST O RDERABLES Performing Organization Address [facility] Co de Phone Number [facility] [place] [address] * POCT Glucose (08/30/2022 8:59 AM EDT) Glucose, POC 160 65 - 199 mg/dL [facility] Comment: Supplemental ranges: <140 mg/dL before meals <180 mg/dL all other times of the day Blood 08/30/2022 8:59 AM EDT 08/30/2022 8:59 AM EDT Roland Pruett MD POINT OF CARE [place] [address] * Differential, Automated (08/30/2022 4:05 AM EDT) Pathologist [facility] Neutrophil % 61.4 % [facility] LABORATORY Neutrophil Absolute 4.26 1.70 - 6.10 x10(3)/[facility] LABORATORY Lymph % 24.7 % [facility] Lymphocytes Abs 1.7 0.9 - 3.2 x10(3)/[facility] LABORATORY Monocyte % 7.6 % [facility] Monocyte Abs 0.5 0.3 - 0.9 x10(3)/[facility] LABORATORY Eos % 4.7 % [facility] Eosinophils Abs 0.3 0.0 - 0.4 x10(3)/[facility] LABORATORY Basophil % 1.2 % [facility] Baso Absolute 0.1 0.0 - 0.1 x10(3)/[facility] LABORATORY Immature Gran % 0.40 % [facility] Comment: Immature granulocytes(IG's)percentage and absolute count will include metamyelocytes, myelocytes, and promyelocytes. Blood smears from CBCs yielding IG's will be scanned manually for concordance. If this scan disagrees with the automated IG or if promyelocytes are noted, a manual differential will be performed. Immature Gran Absolute 0.03 0.00 - 0.04 x10(3)/[facility] LABORATORY Blood 08/30/2022 4:05 AM EDT 08/30/2022 4:13 AM EDT Narrative Resulting Agency Comment Spec In Lab Roland Pruett MD [place] [address] * (ABNORMAL) Hemogram (08/30/2022 4:05 AM EDT) Pathologist [facility] White Blood Cell 7.0 4.0 - 9.5 x10(3)/mc L [facility] Red Blood Cell 3.81(L) 4.00 - 5.21 x10(6)/mc L [facility] Hemoglobin 8.4(L) 11.7 - 15.5 g/dL [facility] Hematocrit 27.8(L) 35.7 - 45.8 % [facility] H[facility]PITAL [facility] Mean Cell Volume 73.0(L) 82.6 - 94.4 fL [facility] Mean Cell Hemoglobin 22.0(L) 27.1 - 32.0 pg [facility] Mean Cell Hemoglobin Concentration 30.2(L) 31.7 - 35.0 g/dL [facility] Platelet 407(H) 145 - 357 x10(3)/mc L [facility] RDW Standard Deviation Not Measured 37.0 - 46.0 fL [facility] RDW coefficient of variation Not Measured 11.5 - 14.1 % [facility] Mean Platelet Volume 9.4 7.6 - 12.9 fL [facility] NRBC% auto 0.0 % [facility] ITAL LABORATORY NRBC Absolute 0.000 0.000 - 0.000 x10(3)/ L [facility] Blood 08/30/2022 4:05 AM EDT 08/30/2022 4:13 AM EDT Narrative Resulting Agency Comment Spec In Lab Roland Pruett MD HEMATOLOGY ORDERABLE S [facility] [place] [address] * Phosphorus (08/30/2022 4:05 AM EDT) Phosphorus 3.7 2.5 - 4.5 mg/dL [facility] Blood 08/30/2022 4:05 AM EDT 08/30/2022 4:13 AM EDT Narrative Resulting Agency Comment Spec In Lab Roland Pruett MD CHEMISTRY ORDERABLES [facility] [place] [address] * Magnesium (08/30/2022 4:05 AM EDT) Magnesium 0.90 0.69 - 1.07 mmol/L [facility] Blood 08/30/2022 4:05 AM EDT 08/30/2022 4:13 AM EDT Narrative Resulting Agency Comment Spec In Lab Roland Pruett MD CHEMISTRY ORDERABLES [facility] [place] [address] * (ABNORMAL) Basic Metabolic Panel (non-fasting) (08/30/2022 4:05 AM EDT) Glucose 133 65 - 199 mg/dL [facility] Comment:Diabetes: >=200 mg/d L plus symptoms Blood Urea Nitrogen 19(H) 8 - 18 mg/dL [facility] Creatinine 0.50(L) 0.70 - 1.20 mg/dL [facility] Sodium 140 135 - 145 mmol/L [facility] Potassium 4.1 3.5 - 5.0 mmol/L [facility] Comment: Please note: ??Patients with WBC >100,000 may have falsely elevated Potassium levels. ??For accurate Potassium quantification in these patients send serum separator tube (gold top) for subsequent determinations. ??Contact the Clinical Chemistry Laboratory if there are any questions. Chloride 104 98 - 107 mmol/L [facility] Carbon Dioxide 28 22 - 31 mmol/L [facility] Anion Gap 8 5 - 15 mmol/L [facility] Calcium 9.4 8.5 - 10.5 mg/dL [facility] Est Glomerular Filtration Rate 106 >=60 mL/min/1. 73 m?? [facility] Comment: This patient's estimated GFR was [...] and symptoms in addition to eGFR. Blood 08/30/2022 4:05 AM EDT 08/30/2022 4:13 AM EDT Narrative Resulting Agency Comment Spec In Lab Roland Pruett MD CHEMISTRY ORDERABLES Performing Organization Address City/[facility]/ZIP Co de Phone Number [facility] [place] [address] * POCT Glucose (08/30/2022 4:00 AM EDT) Glucose, POC 128 65 - 199 mg/dL [facility] Comment: Supplemental ranges: <140 mg/dL before meals <180 mg/dL all other times of the day Blood 08/30/2022 4:00 AM EDT 08/30/2022 4:00 AM EDT Roland Pruett MD POINT OF CARE TEST O RDERABLES Performing Organization Address City/[facility]/[place] Co de Phone Number [facility] [place] [address] * POCT Glucose (08/29/2022 11:58 PM EDT) Glucose, POC 155 65 - 199 mg/dL [facility] Comment: Supplemental ranges: <140 mg/dL before meals <180 mg/dL all other times of the day Blood 08/29/2022 11:5 8 PM EDT 08/29/2022 11:58 PM EDT Roland Pruett MD POINT OF CARE TEST O RDERABLES Performing Organization Address City/[facility]/ZIP Co de Phone Number [facility] [place] [address] * POCT Glucose (08/29/2022 8:16 PM EDT) Glucose, POC 146 65 - 199 mg/dL [facility] Comment: Supplemental ranges: <140 mg/dL before meals <180 mg/dL all other times of the day Blood 08/29/2022 8:16 PM EDT 08/29/2022 8:16 PM EDT Roland Pruett MD POINT OF CARE TEST O RDERABLES Performing Organization Address City/[facility]/ZIP Co de Phone Number [facility] [place] [address] * POCT Glucose (08/29/2022 4:08 PM EDT) Glucose, POC 194 65 - 199 mg/dL [facility] Comment: Supplemental ranges: <140 mg/dL before meals <180 mg/dL all other times of the day Blood 08/29/2022 4:08 PM EDT 08/29/2022 4:08 PM EDT Roland Pruett MD POINT OF CARE TEST O RDAV Performing Organization Address [facility]/[place] Co de Phone Number [facility] [place] [address] * Valproic Acid Level, Total (08/29/2022 11:35 AM EDT) Valproic Acid 25 mg/L [facility] Comment: Therapeutic Range: Anticonvulsant Therapy: ??50-100 mg/L Manic Episodes Associated with Bipolar Disorder: ??50-125 mg/L Blood 08/29/2022 11:3 5 AM EDT 08/29/2022 11:44 AM EDT Narrative Resulting Agency Comment Spec In Lab Roland Pruett MD CHEMISTRY ORDERABLES Performing Organization Address [facility]/[place] Co de Phone Number [facility] [place] [address] * (ABNORMAL) POCT Glucose (08/29/2022 11:34 AM EDT) Glucose, POC 209(H) 65 - 199 mg/dL [facility] Comment: Supplemental ranges: <140 mg/dL before meals <180 mg/dL all other times of the day Blood 08/29/2022 11:3 4 AM EDT 08/29/2022 11:34 AM EDT Roland Pruett MD POINT OF CARE [place] [address] * Differential, Automated (08/29/2022 9:30 AM EDT) Pathologist [facility] Neutrophil % 72.4 % [facility] Neutrophil Absolute 5.42 1.70 - 6.10 x10(3)/[facility] LABORATORY Lymph % 16.8 % [facility] LABORATORY Lymphocytes Abs 1.3 0.9 - 3.2 x10(3)/[facility] LABORATORY Monocyte % 6.5 % [facility] LABORATORY Monocyte Abs 0.5 0.3 - 0.9 x10(3)/[facility] LABORATORY Eos % 3.2 % [facility] LABORATORY Eosinophils Abs 0.2 0.0 - 0.4 x10(3)/[facility] LABORATORY Basophil % 0.8 % [facility] LABORATORY Baso Absolute 0.1 0.0 - 0.1 x10(3)/[facility] LABORATORY Immature Gran % 0.30 % [facility] Comment: Immature granulocytes(IG's)percentage and absolute count will include metamyelocytes, myelocytes, and promyelocytes. Blood smears from CBCs yielding IG's will be scanned manually for concordance. If this scan disagrees with the automated IG or if promyelocytes are noted, a manual differential will be performed. Immature Gran Absolute 0.02 0.00 - 0.04 x10(3)/[facility] LABORATORY Blood 08/29/2022 9:30 AM EDT 08/29/2022 9:31 AM EDT Narrative Resulting Agency Comment Spec In Lab Tyler Cobb MD HEMATOLOGY ORDERABLE S [facility] [place] [address] * (ABNORMAL) Hemogram (08/29/2022 9:30 AM EDT) Pathologist [facility] White Blood Cell 7.5 4.0 - 9.5 x10(3)/[facility] LABORATORY Red Blood Cell 4.01 4.00 - 5.21 x10(6)/[facility] LABORATORY Comment:Dimorphic RBC popula tion. Hemoglobin 8.7(L) 11.7 - 15.5 g/dL [facility] Hematocrit 28.5(L) 35.7 - 45.8 % [facility] Mean Cell Volume 71.1(L) 82.6 - 94.4 fL [facility] Mean Cell Hemoglobin 21.7(L) 27.1 - 32.0 pg [facility] Mean Cell Hemoglobin Concentration 30.5(L) 31.7 - 35.0 g/dL [facility] Platelet 448(H) 145 - 357 x10(3)/mc L [facility] RDW Standard Deviation Not Measured 37.0 - 46.0 fL [facility] RDW coefficient of variation Not Measured 11.5 - 14.1 % [facility] Mean Platelet Volume 9.5 7.6 - 12.9 fL [facility] NRBC% auto 0.0 % [facility] LABORATORY NRBC Absolute 0.000 0.000 - 0.000 x10(3)/[facility] LABORATORY Blood 08/29/2022 9:30 AM EDT 08/29/2022 9:31 AM EDT Narrative Resulting Agency Comment Spec In Lab Tyler Cobb MD HEMATOLOGY ORDERABLE S [facility] [place] [address] * Phosphorus (08/29/2022 9:30 AM EDT) Phosphorus 3.4 2.5 - 4.5 mg/dL [facility] Blood 08/29/2022 9:30 AM EDT 08/29/2022 9:31 AM EDT Narrative Resulting Agency Comment Spec In Lab Richard Pascal MD CHEMISTRY ORDERABLES Performing Organization Address City/[facility]/ZIP Co de Phone Number [facility] [place] [address] * Magnesium (08/29/2022 9:30 AM EDT) Magnesium 0.81 0.69 - 1.07 mmol/L [facility] Blood 08/29/2022 9:30 AM EDT 08/29/2022 9:31 AM EDT Narrative Resulting Agency Comment Spec In Lab Richard Pascal MD CHEMISTRY ORDERABLES [facility] [place] [address] * (ABNORMAL) Basic Metabolic Panel (non-fasting) (08/29/2022 9:30 AM EDT) Glucose 289(H) 65 - 199 mg/dL [facility] Comment:Diabetes: >=200 mg/d L plus symptoms Blood Urea Nitrogen 19(H) 8 - 18 mg/dL [facility] Creatinine 0.47(L) 0.70 - 1.20 mg/dL [facility] Sodium 137 135 - 145 mmol/L [facility] Potassium 4.4 3.5 - 5.0 mmol/L [facility] Comment: Please note: ??Patients with WBC >100,000 may have falsely elevated Potassium levels. ??For accurate Potassium quantification in these patients send serum separator tube (gold top) for subsequent determinations. ??Contact the Clinical Chemistry Laboratory if there are any questions. Chloride 103 98 - 107 mmol/L [facility] Carbon Dioxide 25 22 - 31 mmol/L [facility] Anion Gap 9 5 - 15 mmol/L [facility] Calcium 9.2 8.5 - 10.5 mg/dL [facility] Est Glomerular Filtration Rate 108 >=60 mL/min/1. 73 m?? [facility] Comment: This patient's estimated GFR was [...] and symptoms in addition to eGFR. Blood 08/29/2022 9:30 AM EDT 08/29/2022 9:31 AM EDT Narrative Resulting Agency Comment Spec In Lab Richard Pascal MD CHEMISTRY ORDERABLES Performing Organization Address City/[facility]/ZIP Co de Phone Number [facility] [place] [address] * (ABNORMAL) POCT Glucose (08/29/2022 9:13 AM EDT) Glucose, POC 279(H) 65 - 199 mg/dL [facility] Comment: Supplemental ranges: <140 mg/dL before meals <180 mg/dL all other times of the day Blood 08/29/2022 9:13 AM EDT 08/29/2022 9:13 AM EDT Roland Pruett MD POINT OF CARE TEST O RDERABLES Performing Organization Address City/[facility]/[place] Co de Phone Number [facility] [place] [address] * Lipid Panel (Reflex Direct LDL) (08/29/2022 4:48 AM EDT) Cholesterol, Total 110 mg/dL [facility] Comment: Lower Risk: <200 mg/dL Average Risk: 200-239 mg/dL Higher Risk: >nf=223 mg/dL Triglyceride 127 mg/dL [facility] Comment: Average Risk/Lower Risk: <150 mg/dL Borderline High Risk: 150-199 mg/dL High Risk: 200-499 mg/dL Very High Risk: >fu=226 mg/dL HDL Cholesterol 34 mg/dL [facility] Comment: Males: ?? Higher Risk: <40 mg/dL Females: ?? Higher Risk: <50 mg/dL LDL Cholesterol 51 mg/dL [facility] Comment: Lowest Risk: <100 mg/dL Lower Risk: 100-129 mg/dL Borderline High Risk: 130-159 mg/dL High Risk: 160-189 mg/dL Very High Risk: >ag=208 mg/dL Cholesterol/HDL Ratio 3.2 ratio [facility] Lipid Interpretation See Note [facility] Comment: Lipid management should be guided by a patient? s ASCVD risk, goals and preferences. ACC/AHA Guidelines recommend high intensity statin if clinical ASCVD or LDL greater than or equal to 190 mg/dL. http://Vivartes.com/OCD-OMM-Dgnlispaz Adults aged 40-75 with LDL 70-189 mg/dL should have their 10 year ASCVD risk estimated with the ACC/AHA ASCVD risk humanities professor http://tools.acc.org/BILMO-Nyas-Ourzbqamp/ Statin should be discussed if risk greater [...] In Lab Milagros Hernandez MD CHEMISTRY ORDERABLES Performing Organization Address City/[facility]/ZIP Co de Phone Number [facility] [place] [address] * Valproic Acid Level, Total (08/29/2022 4:48 AM EDT) Valproic Acid 29 mg/L [facility] Comment: Therapeutic Range: Anticonvulsant Therapy: ??50-100 mg/L Manic Episodes Associated with Bipolar Disorder: ??50-125 mg/L Blood 08/29/2022 4:48 AM EDT 08/29/2022 4:58 AM EDT Narrative Resulting Agency Comment Spec In Lab Milagros Hernandez MD CHEMISTRY ORDERABLES [facility] [place] [address] * POCT Glucose (08/29/2022 3:53 AM EDT) Glucose, POC 152 65 - 199 mg/dL [facility] Comment: Supplemental ranges: <140 mg/dL before meals <180 mg/dL all other times of the day Blood 08/29/2022 3:53 AM EDT 08/29/2022 3:53 AM EDT Milagros Hernandez MD POINT OF CARE TEST O HUGHERAREYMUNDO Performing Organization Address City/[facility]/ZIP Co de Phone Number [facility] [place] [address] * POCT Glucose (08/29/2022 12:13 AM EDT) Glucose, POC 153 65 - 199 mg/dL [facility] Comment: Supplemental ranges: <140 mg/dL before meals <180 mg/dL all other times of the day Blood 08/29/2022 12:1 3 AM EDT 08/29/2022 12:13 AM EDT Milagros Hernandez MD POINT OF CARE TEST O HUGHERAREYMUNDO Performing Organization Address [facility]/ZIP Co de Phone Number [facility] [place] [address] * (ABNORMAL) POCT Glucose (08/28/2022 7:38 PM EDT) Glucose, POC 211(H) 65 - 199 mg/dL [facility] Comment: Supplemental ranges: <140 mg/dL before meals <180 mg/dL all other times of the day Blood 08/28/2022 7:38 PM EDT 08/28/2022 7:38 PM EDT Milagros Hernandez MD POINT OF CARE TEST O GABRIELLA [facility] [place] [address] * POCT Glucose (08/28/2022 4:33 PM EDT) Glucose, POC 196 65 - 199 mg/dL [facility] Comment: Supplemental ranges: <140 mg/dL before meals <180 mg/dL all other times of the day Blood 08/28/2022 4:33 PM EDT 08/28/2022 4:33 PM EDT Milagros Hernandez MD POINT OF CARE TEST O RDAV [facility] [place] [address] * (ABNORMAL) POCT Glucose (08/28/2022 12:06 PM EDT) Glucose, POC 221(H) 65 - 199 mg/dL [facility] Comment: Supplemental ranges: <140 mg/dL before meals <180 mg/dL all other times of the day Blood 08/28/2022 12:0 6 PM EDT 08/28/2022 12:06 PM EDT Milagros Hernandez MD POINT OF CARE TEST O GABRIELLA Performing Organization Address City/[facility]/[place] Co de Phone Number [facility] [place] [address] * Differential, Automated (08/28/2022 7:00 AM EDT) Neutrophil % 65.3 % [facility] Neutrophil Absolute 5.85 1.70 - 6.10 x10(3)/[facility] LABORATORY Lymph % 23.3 % [facility] Lymphocytes Abs 2.1 0.9 - 3.2 x10(3)/[facility] LABORATORY Monocyte % 6.8 % [facility] LABORATORY Monocyte Abs 0.6 0.3 - 0.9 x10(3)/[facility] LABORATORY Eos % 3.3 % [facility] Eosinophils Abs 0.3 0.0 - 0.4 x10(3)/[facility] LABORATORY Basophil % 0.9 % [facility] Baso Absolute 0.1 0.0 - 0.1 x10(3)/[facility] LABORATORY Immature Gran % 0.40 % [facility] Comment: Immature granulocytes(IG's)percentage and absolute count will include metamyelocytes, myelocytes, and promyelocytes. Blood smears from CBCs yielding IG's will be scanned manually for concordance. If this scan disagrees with the automated IG or if promyelocytes are noted, a manual differential will be performed. Immature Gran Absolute 0.04 0.00 - 0.04 x10(3)/mcL [facility] Blood 08/28/2022 7:00 AM EDT 08/28/2022 7:04 AM EDT Narrative Resulting Agency Comment Spec In Lab Tyler Cobb MD HEMATOLOGY ORDERABLE S [facility] [place] [address] * (ABNORMAL) Hemogram (08/28/2022 7:00 AM EDT) White Blood Cell 9.0 4.0 - 9.5 x10(3)/mc L [facility] Red Blood Cell 3.90(L) 4.00 - 5.21 x10(6)/[facility] LABORATORY Comment:Dimorphic RBC popula tion. Hemoglobin 8.6(L) 11.7 - 15.5 g/dL [facility] Hematocrit 27.4(L) 35.7 - 45.8 % [facility] Mean Cell Volume 70.3(L) 82.6 - 94.4 fL [facility] Mean Cell Hemoglobin 22.1(L) 27.1 - 32.0 pg [facility] Mean Cell Hemoglobin Concentration 31.4(L) 31.7 - 35.0 g/dL [facility] Platelet 464(H) 145 - 357 x10(3)/mc L [facility] RDW Standard Deviation Not Measured 37.0 - 46.0 fL [facility] RDW coefficient of variation Not Measured 11.5 - 14.1 % [facility] Mean Platelet Volume 9.5 7.6 - 12.9 fL [facility] NRBC% auto 0.0 % [facility] LABORAT[facility] NRBC Absolute 0.000 0.000 - 0.000 x10(3)/ L [facility] Blood 08/28/2022 7:00 AM EDT 08/28/2022 7:04 AM EDT Narrative Resulting Agency Comment Spec In Lab Tyler Cobb MD HEMATOLOGY ORDERABLE S Performing Organization Address [facility]/[place] Co de Phone Number [facility] [place] [address] * (ABNORMAL) Phosphorus (08/28/2022 7:00 AM EDT) Phosphorus 4.6(H) 2.5 - 4.5 mg/dL [facility] Blood 08/28/2022 7:00 AM EDT 08/28/2022 7:04 AM EDT Narrative Resulting Agency Comment Spec In Lab Richard Pascal MD CHEMISTRY ORDERABLES Performing Organization Address [facility]/[place] Co de Phone Number [facility] [place] [address] * Magnesium (08/28/2022 7:00 AM EDT) Magnesium 0.87 0.69 - 1.07 mmol/L [facility] Blood 08/28/2022 7:00 AM EDT 08/28/2022 7:04 AM EDT Narrative Resulting Agency Comment Spec In Lab Richard Pascal MD CHEMISTRY ORDERABLES Performing Organization Address [facility] de Phone Number [facility] [place] [address] * (ABNORMAL) Basic Metabolic Panel (non-fasting) (08/28/2022 7:00 AM EDT) Glucose 113 65 - 199 mg/dL [facility] Comment:Diabetes: >=200 mg/d L plus symptoms Blood Urea Nitrogen 15 8 - 18 mg/dL [facility] Creatinine 0.46(L) 0.70 - 1.20 mg/dL [facility] Sodium 141 135 - 145 mmol/L [facility] Potassium 4.2 3.5 - 5.0 mmol/L [facility] Comment: Please note: ??Patients with WBC >100,000 may have falsely elevated Potassium levels. ??For accurate Potassium quantification in these patients send serum separator tube (gold top) for subsequent determinations. ??Contact the Clinical Chemistry Laboratory if there are any questions. Chloride 105 98 - 107 mmol/L [facility] Carbon Dioxide 27 22 - 31 mmol/L [facility] Anion Gap 9 5 - 15 mmol/L [facility] Calcium 9.4 8.5 - 10.5 mg/dL [facility] Est Glomerular Filtration Rate 108 >=60 mL/min/1. 73 m?? [facility] Comment: This patient's estimated GFR was [...] and symptoms in addition to eGFR. Blood 08/28/2022 7:00 AM EDT 08/28/2022 7:04 AM EDT Narrative Resulting Agency Comment Spec In Lab Richard Pascal MD CHEMISTRY ORDERABLES Performing Organization Address City/[facility]/ZIP Co de Phone Number [facility] [place] [address] * POCT Glucose (08/28/2022 4:59 AM EDT) Glucose, POC 96 65 - 199 mg/dL [facility] Comment: Supplemental ranges: <140 mg/dL before meals <180 mg/dL all other times of the day Blood 08/28/2022 4:59 AM EDT 08/28/2022 4:59 AM EDT Milagros Hernandez MD POINT OF CARE TEST O RDERABLES Performing Organization Address City/[facility]/ZIP Co de Phone Number [facility] [place] [address] * POCT Glucose (08/28/2022 12:08 AM EDT) Glucose, POC 91 65 - 199 mg/dL [facility] Comment: Supplemental ranges: <140 mg/dL before meals <180 mg/dL all other times of the day Blood 08/28/2022 12:0 8 AM EDT 08/28/2022 12:08 AM EDT Milagros Hernandez MD POINT OF CARE TEST O RDERABLES Performing Organization Address City/[facility]/[place] Co de Phone Number [facility] [place] [address] * POCT Glucose (08/27/2022 9:50 PM EDT) Glucose, POC 140 65 - 199 mg/dL [facility] Comment: Supplemental ranges: <140 mg/dL before meals <180 mg/dL all other times of the day Blood 08/27/2022 9:50 PM EDT 08/27/2022 9:50 PM EDT Milagros Hernandez MD POINT OF CARE TEST O GABRIELLA Performing Organization Address [facility]/[place] Co de Phone Number [facility] [place] [address] * Potassium (08/27/2022 6:00 PM EDT) Potassium 4.0 3.5 - 5.0 mmol/L [facility] Comment: Please note: ??Patients with WBC >100,000 may have falsely elevated Potassium levels. ??For accurate Potassium quantification in these patients send serum separator tube (gold top) for subsequent determinations. ??Contact the Clinical Chemistry Laboratory if there are any questions. Blood 08/27/2022 6:00 PM EDT 08/27/2022 6:05 PM EDT Narrative Resulting Agency Comment Spec In Lab Richard Pascal MD CHEMISTRY ORDERABLES Performing Organization Address [facility]/[place] Co de Phone Number [facility] [place] [address] * POCT Glucose (08/27/2022 4:55 PM EDT) Glucose, POC 149 65 - 199 mg/dL [facility] Comment: Supplemental ranges: <140 mg/dL before meals <180 mg/dL all other times of the day Blood 08/27/2022 4:55 PM EDT 08/27/2022 4:55 PM EDT Milagros Hernandez MD POINT OF CARE TEST O GABRIELLA Performing Organization Address City/[facility]/[place] Co de Phone Number [facility] [place] [address] * Potassium (08/27/2022 1:55 PM EDT) Potassium 4.3 3.5 - 5.0 mmol/L [facility] Comment: Please note: ??Patients with WBC >100,000 may have falsely elevated Potassium levels. ??For accurate Potassium quantification in these patients send serum separator tube (gold top) for subsequent determinations. ??Contact the Clinical Chemistry Laboratory if there are any questions. Blood 08/27/2022 1:55 PM EDT 08/27/2022 2:11 PM EDT Narrative Resulting Agency Comment Spec In Lab Richard Pascal MD CHEMISTRY ORDERABLES Performing Organization Address [facility]/[place] Co de Phone Number [facility] [place] [address] * POCT Glucose (08/27/2022 11:32 AM EDT) Glucose, POC 141 65 - 199 mg/dL [facility] Comment: Supplemental ranges: <140 mg/dL before meals <180 mg/dL all other times of the day Blood 08/27/2022 11:3 2 AM EDT 08/27/2022 11:32 AM EDT Milagros Hernandez MD POINT OF CARE TEST O GABRIELLA Performing Organization Address [facility]/[place] Co de Phone Number [facility] [place] [address] * Potassium (08/27/2022 9:50 AM EDT) Potassium 4.4 3.5 - 5.0 mmol/L [facility] Comment: Please note: ??Patients with WBC >100,000 may have falsely elevated Potassium levels. ??For accurate Potassium quantification in these patients send serum separator tube (gold top) for subsequent determinations. ??Contact the Clinical Chemistry Laboratory if there are any questions. Blood 08/27/2022 9:50 AM EDT 08/27/2022 10:05 AM EDT Narrative Resulting Agency Comment Spec In Lab Richard Pascal MD CHEMISTRY ORDERABLES [facility] [place] [address] * CT Chest wo Contrast (Generic) (08/27/2022 8:58 AM EDT) Anatomical Region Laterality Modality Chest Computed Tomogra phy Impressions 08/27/2022 10:48 AM EDT Stable findings of multifocal pneumonia. No interval abnormality. Thank you for letting us participate in the care of this patient. ??If you are a health care provider and have any questions regarding this report, please contact the number below. ??For patients who have questions please contact the health acute care physician that requested your imaging first. ? Narrative 08/27/2022 10:48 AM EDT EXAMINATION: CT CHEST WO CONTRAST (GENERIC) CLINICAL HISTORY: Pneumonia, unresolved Looking to see resolution of multifocal PNA. Please time with coronary CTA if possible TECHNIQUE: Helical CT of the chest without intravenous contrast administration. Thin-section reconstructions as well as coronal and sagittal reformatted images were generated. COMPARISON: CT chest 08/20/2022 FINDINGS: Pulmonary parenchyma: Multifocal patchy and consolidative airspace opacities greatest in the bilateral lower lobes are stable from the previous exam. No new or enlarging opacities. The small cavitary areas are less conspicuous. Airways: Adherent mucus throughout the trachea. Pleura: No effusion. Lymph nodes: Stable mediastinal lymph nodes which are likely reactive. Heart and vasculature: Normal size of the heart. No significant pericardial effusion. Normal caliber of the thoracic aorta. Right upper extremity PICC with tip at the superior cavoatrial junction. Other mediastinal structures: Small hiatal hernia. Unchanged esophageal wall thickening, recently evaluated by endoscopy which demonstrated inflammation. Upper abdomen: Partially imaged enteric catheter reaching the duodenum. Cholelithiasis. Stable hepatic cyst. Skeletal structures: No significant findings. Procedure Note Minh Quiroga MD - 08/27/2022 EXAMINATION: CT CHEST WO CONTRAST (GENERIC) CLINICAL HISTORY: Pneumonia, unresolved Looking to see resolution of multifocal PNA. Please time with coronary CTAif possible TECHNIQUE: Helical CT of the chest without intravenous contrastadministration. Thin-section reconstructions as well as coronal and sagittal reformattedimages were generated. COMPARISON: CT chest 08/20/2022 FINDINGS: Pulmonary parenchyma: Multifocal patchy and consolidative airspaceopacities greatest in the bilateral lower lobes are stable from the previous exam.No new or enlarging opacities. The small cavitary areas are less conspicuous. Airways: Adherent mucus throughout the trachea. Pleura: No effusion. Lymph nodes: Stable mediastinal lymph nodes which are likely reactive. Heart and vasculature: Normal size of the heart. No significantpericardial effusion. Normal caliber of the thoracic aorta. Right upper extremity PICCwith tip at the superior cavoatrial junction. Other mediastinal structures: Small hiatal hernia. Unchanged esophagealwall thickening, recently evaluated by endoscopy which demonstratedinflammation. Upper abdomen: Partially imaged enteric catheter reaching the duodenum. Cholelithiasis. Stable hepatic cyst. Skeletal structures: No significant findings. IMPRESSION Stable findings of multifocal pneumonia. No interval abnormality. Thank you for letting us participate in the care of this patient. If youare a health care provider and have any questions regarding this report,please contact the number below. For patients who have questions please contactthe health acute care physician that requested your imaging first. Milagros Hernandez MD IMG CT ORDERABLES * CT Angiogram Coronary Arteries (08/27/2022 8:58 AM EDT) Anatomical Region Laterality Modality Cardiac Computed Tomogra phy Impressions 08/27/2022 11:39 AM EDT Coronary calcium score of 0, consistent with no detectable calcified atherosclerotic plaque burden. No evidence of stenosing soft plaque on the coronary CT arteriogram. CAD RADS 0 Ongoing bilateral pulmonary infectious/inflammatory changes with persistent consolidative opacity especially in the left lower lobe. This could represent a multifocal pneumonia. Recommend follow-up CT in 3 months to assess for resolution. Thank you for letting us participate in the care of this patient. ??If you are a health care provider and have any questions regarding this report, please contact the number below. ??For patients who have questions please contact the health acute care physician that requested your imaging first. ? Electronically signed by: Arlette Mays MD, [facility] ([phone]), at 08/27/2022 11:39 AM Narrative 08/27/2022 11:39 AM EDT EXAMINATION: CT ANGIOGRAM CORONARY ARTERIES CLINICAL HISTORY: Heart failure, known or suspected, initial workup COMPARISON: Chest CT 08/20/2022 TECHNIQUE: 3 mm thick axial contiguous sections through the heart were obtained via ECG-gated axial mode acquisition without intravenous contrast. After time bolus, 0.625 mm thick axial contiguous sections were obtained through the heart via ECG-gated helical acquisition during intravenous administration of 93 cc Omnipaque 350. Post-processing was performed on an independent computer workstation including curved multiplanar reformats, coronary calcium scoring, and 3D reconstructions. FINDINGS: Coronary calcium score: Left main: ??Agatston score: 0 Left anterior descending: ??Agatston score: 0 Left circumflex: ??Agatston score: 0 Right coronary: ??Agatston score: 0 TOTAL: ??Agatston score: 0 Atherosclerotic plaque burden, based on Agatston score: No detectable calcified atherosclerotic plaque. Percentile rank, based on age, race/ethnicity, and gender: N/A Reference: Maty RL, Chuy H, Amirah R, et al. ??Distribution of coronary artery calcium by race, gender, and age: results from the Multi-Ethnic Study of Atherosclerosis (AVENDANO). Circulation. 2006;113(1):30-37. Coronary arteries: Right dominant coronary circulation. Left main: Normal origin. No demonstrable plaque or stenosis. Left anterior descending: No demonstrable plaque or stenosis. Diagonal branches: No demonstrable plaque or stenosis. Left Circumflex: No demonstrable plaque or stenosis. Obtuse marginal branches: No demonstrable plaque or stenosis. Right coronary: Normal origin. No demonstrable plaque or stenosis. Posterior descending: No demonstrable plaque or stenosis. Posterolateral branch: No demonstrable plaque or stenosis. Cardiac chambers: Central venous catheter ends at the superior cavoatrial junction. Great vessels: No significant findings. Pulmonary parenchyma, airways, pleura: The lungs are incompletely included on this coronary CTA and are better evaluated on chest CT. Of note are persistent consolidative changes in the bilateral lungs, specifically in the left lower lobe. Small amount of mucus in the trachea. Upper abdomen: Incompletely visualized feeding tube along the esophagus and stomach. Very small hiatal hernia. Subcentimeter liver cyst at the dome. Skeletal Structures: No significant findings. Procedure Note Arlette Wolff MD - 08/27/2022 EXAMINATION: CT ANGIOGRAM CORONARY ARTERIES CLINICAL HISTORY: Heart failure, known or suspected, initial workup COMPARISON: Chest CT 08/20/2022 TECHNIQUE: 3 mm thick axial contiguous sections through the heart wereobtained via ECG-gated axial mode acquisition without intravenous contrast. Aftertime bolus, 0.625 mm thick axial contiguous sections were obtained through theheart via ECG-gated helical acquisition during intravenous administration of 93cc Omnipaque 350. Post-processing was performed on an independent computer workstation including curved multiplanar reformats, coronary calciumscoring, and 3D reconstructions. FINDINGS: Coronary calcium score: Left main: Agatston score: 0 Left anterior descending: Agatston score: 0 Left circumflex: Agatston score: 0 Right coronary: Agatston score: 0 TOTAL: Agatston score: 0 Atherosclerotic plaque burden, based on Agatston score: No detectablecalcified atherosclerotic plaque. Percentile rank, based on age, race/ethnicity, and gender: N/A Reference: Maty URBANO, Chuy H, Amirah R, et al. ??Distribution ofcoronary artery calcium by race, gender, and age: results from the Multi-EthnicStudy of Atherosclerosis (AVENDANO). Circulation. 2006;113(1):30-37. Coronary arteries: Right dominant coronary circulation. Left main: Normal origin. No demonstrable plaque or stenosis. Left anterior descending: No demonstrable plaque or stenosis. Diagonal branches: No demonstrable plaque or stenosis. Left Circumflex: No demonstrable plaque or stenosis. Obtuse marginal branches: No demonstrable plaque or stenosis. Right coronary: Normal origin. No demonstrable plaque or stenosis. Posterior descending: No demonstrable plaque or stenosis. Posterolateral branch: No demonstrable plaque or stenosis. Cardiac chambers: Central venous catheter ends at the superiorcavoatrial junction. Great vessels: No significant findings. Pulmonary parenchyma, airways, pleura: The lungs are incompletely includedon this coronary CTA and are better evaluated on chest CT. Of note arepersistent consolidative changes in the bilateral lungs, specifically in the leftlower lobe. Small amount of mucus in the trachea. Upper abdomen: Incompletely visualized feeding tube along the esophagusand stomach. Very small hiatal hernia. Subcentimeter liver cyst at the dome. Skeletal Structures: No significant findings. IMPRESSION Coronary calcium score of 0, consistent with no detectable calcified atherosclerotic plaque burden. No evidence of stenosing soft plaque on the coronary CT arteriogram. CADRADS 0 Ongoing bilateral pulmonary infectious/inflammatory changes withpersistent consolidative opacity especially in the left lower lobe. This couldrepresent a multifocal pneumonia. Recommend follow-up CT in 3 months to assess for resolution. Thank you for letting us participate in the care of this patient. If youare a health care provider and have any questions regarding this report,please contact the number below. For patients who have questions please contactthe health acute care physician that requested your imaging first. Electronically signed by: Arlette Mays MD, [facility] ([phone]), at 08/27/2022 11:39 AM Milagros Hernandez MD IMG CT ORDERABLES * POCT Glucose (08/27/2022 7:38 AM EDT) Pathologist [facility] Glucose, POC 114 65 - 199 mg/dL [facility] Comment: Supplemental ranges: <140 mg/dL before meals <180 mg/dL all other times of the day Blood 08/27/2022 7:38 AM EDT 08/27/2022 7:38 AM EDT Milagros Hernandez MD POINT OF CARE TEST O RDERABLES [facility] [place] [address] * (ABNORMAL) Differential, Automated (08/27/2022 5:40 AM EDT) [facility] Neutrophil % 69.4 % [facility] Neutrophil Absolute 6.61(H) 1.70 - 6.10 x10(3)/mc [facility] Lymph % 18.6 % [facility] Lymphocytes Abs 1.8 0.9 - 3.2 x10(3)/[facility] Monocyte % 7.7 % [facility] Monocyte Abs 0.7 0.3 - 0.9 x10(3)/mc [facility] Eos % 3.2 % [facility] Eosinophils Abs 0.3 0.0 - 0.4 x10(3)/mc L [facility] Basophil % 0.7 % [facility] Baso Absolute 0.1 0.0 - 0.1 x10(3)/mc L [facility] Immature Gran % 0.40 % [facility] Comment: Immature granulocytes(IG's)percentage and absolute count will include metamyelocytes, myelocytes, and promyelocytes. Blood smears from CBCs yielding IG's will be scanned manually for concordance. If this scan disagrees with the automated IG or if promyelocytes are noted, a manual differential will be performed. Immature Gran Absolute 0.04 0.00 - 0.04 x10(3)/mc L [facility] Blood 08/27/2022 5:40 AM EDT 08/27/2022 5:44 AM EDT Narrative Resulting Agency Comment Spec In Lab Tyler Cobb MD HEMATOLOGY ORDERABLE S [facility] [place] [address] * (ABNORMAL) Hemogram (08/27/2022 5:40 AM EDT) White Blood Cell 9.5 4.0 - 9.5 x10(3)/[facility] Red Blood Cell 3.92(L) 4.00 - 5.21 x10(6)/[facility] Comment:Dimorphic RBC popula tion. Hemoglobin 8.6(L) 11.7 - 15.5 g/dL [facility] Hematocrit 27.7(L) 35.7 - 45.8 % [facility] Mean Cell Volume 70.7(L) 82.6 - 94.4 fL [facility] Mean Cell Hemoglobin 21.9(L) 27.1 - 32.0 pg [facility] Mean Cell Hemoglobin Concentration 31.0(L) 31.7 - 35.0 g/dL [facility] Platelet 528(H) 145 - 357 x10(3)/ L [facility] RDW Standard Deviation Not Measured 37.0 - 46.0 fL [facility] RDW coefficient of variation Not Measured 11.5 - 14.1 % [facility] Mean Platelet Volume 9.7 7.6 - 12.9 fL [facility] NRBC% auto 0.0 % [facility] NRBC Absolute 0.000 0.000 - 0.000 x10(3)/ L [facility] Blood 08/27/2022 5:40 AM EDT 08/27/2022 5:44 AM EDT Narrative Resulting Agency Comment Spec In Lab Tyler Cobb MD HEMATOLOGY ORDERABLE S [facility] [place] [address] * Phosphorus (08/27/2022 5:40 AM EDT) Phosphorus 3.7 2.5 - 4.5 mg/dL [facility] Blood 08/27/2022 5:40 AM EDT 08/27/2022 5:44 AM EDT Narrative Resulting Agency Comment Spec In Lab Richard Pascal MD CHEMISTRY ORDERABLES Performing Organization Address City/[facility] Co de Phone Number [facility] [place] [address] * Magnesium (08/27/2022 5:40 AM EDT) Magnesium 0.85 0.69 - 1.07 mmol/L [facility] Blood 08/27/2022 5:40 AM EDT 08/27/2022 5:44 AM EDT Narrative Resulting Agency Comment Spec In Lab Richard Pascal MD CHEMISTRY ORDERABLES Performing Organization Address [facility] Co de Phone Number [facility] [place] [address] * (ABNORMAL) Basic Metabolic Panel (non-fasting) (08/27/2022 5:40 AM EDT) Glucose 130 65 - 199 mg/dL [facility] Comment:Diabetes: >=200 mg/d L plus symptoms Blood Urea Nitrogen 15 8 - 18 mg/dL [facility] Creatinine 0.44(L) 0.70 - 1.20 mg/dL [facility] Sodium 139 135 - 145 mmol/L [facility] Potassium 4.4 3.5 - 5.0 mmol/L [facility] Comment: Please note: ??Patients with WBC >100,000 may have falsely elevated Potassium levels. ??For accurate Potassium quantification in these patients send serum separator tube (gold top) for subsequent determinations. ??Contact the Clinical Chemistry Laboratory if there are any questions. Chloride 106 98 - 107 mmol/L [facility] Carbon Dioxide 27 22 - 31 mmol/L [facility] Anion Gap 6 5 - 15 mmol/L [facility] Calcium 9.3 8.5 - 10.5 mg/dL [facility] Est Glomerular Filtration Rate 109 >=60 mL/min/1. 73 m?? [facility] Comment: This patient's estimated GFR was [...] and symptoms in addition to eGFR. Blood 08/27/2022 5:40 AM EDT 08/27/2022 5:44 AM EDT Narrative Resulting Agency Comment Spec In Lab Richard Pascal MD CHEMISTRY ORDERABLES Performing Organization Address [facility]/ZIP Co de Phone Number [facility] [place] [address] * POCT Glucose (08/27/2022 5:19 AM EDT) Glucose, POC 124 65 - 199 mg/dL [facility] Comment: Supplemental ranges: <140 mg/dL before meals <180 mg/dL all other times of the day Blood 08/27/2022 5:19 AM EDT 08/27/2022 5:19 AM EDT Milagros Hernandez MD POINT OF CARE TEST O RDERABLES [facility] [place] [address] * POCT Glucose (08/26/2022 11:27 PM EDT) Glucose, POC 162 65 - 199 mg/dL [facility] Comment: Supplemental ranges: <140 mg/dL before meals <180 mg/dL all other times of the day Blood 08/26/2022 11:2 7 PM EDT 08/26/2022 11:27 PM EDT Milagros Hernandez MD POINT OF CARE TEST O RDERAREYMUNDO Performing Organization Address [facility] Co de Phone Number [facility] [place] [address] * POCT Glucose (08/26/2022 8:05 PM EDT) Glucose, POC 138 65 - 199 mg/dL [facility] Comment: Supplemental ranges: <140 mg/dL before meals <180 mg/dL all other times of the day Blood 08/26/2022 8:05 PM EDT 08/26/2022 8:05 PM EDT Milagros Hernandez MD POINT OF CARE TEST O GABRIELLA Performing Organization Address [facility] Co de Phone Number [facility] [place] [address] * POCT Glucose (08/26/2022 4:51 PM EDT) Glucose, POC 111 65 - 199 mg/dL [facility] Comment: Supplemental ranges: <140 mg/dL before meals <180 mg/dL all other times of the day Blood 08/26/2022 4:51 PM EDT 08/26/2022 4:51 PM EDT Milagros Hernandez MD POINT OF CARE TEST O GABRIELLA Performing Organization Address [facility] Co de Phone Number [facility] [place] [address] * POCT Glucose (08/26/2022 1:13 PM EDT) Glucose, POC 151 65 - 199 mg/dL [facility] Comment: Supplemental ranges: <140 mg/dL before meals <180 mg/dL all other times of the day Blood 08/26/2022 1:13 PM EDT 08/26/2022 1:13 PM EDT Milagros Hernandez MD POINT OF CARE TEST O RDERABLES Performing Organization Address [facility]/ZIP Co de Phone Number [facility] [place] [address] * POCT Glucose (08/26/2022 11:28 AM EDT) Glucose, POC 130 65 - 199 mg/dL [facility] Comment: Supplemental ranges: <140 mg/dL before meals <180 mg/dL all other times of the day Blood 08/26/2022 11:2 8 AM EDT 08/26/2022 11:28 AM EDT Milagros Hernandez MD POINT OF CARE TEST O RDAV Performing Organization Address [facility] Co de Phone Number [facility] [place] [address] * (ABNORMAL) POCT Glucose (08/26/2022 7:58 AM EDT) Glucose, POC 202(H) 65 - 199 mg/dL [facility] Comment: Supplemental ranges: <140 mg/dL before meals <180 mg/dL all other times of the day Blood 08/26/2022 7:58 AM EDT 08/26/2022 7:58 AM EDT Milagros Hernandez MD POINT OF CARE TEST O RDERABLES Performing Organization Address [facility] Co de Phone Number [facility] [place] [address] * POCT Glucose (08/26/2022 4:42 AM EDT) Glucose, POC 160 65 - 199 mg/dL [facility] Comment: Supplemental ranges: <140 mg/dL before meals <180 mg/dL all other times of the day Blood 08/26/2022 4:42 AM EDT 08/26/2022 4:42 AM EDT Milagros Hernandez MD POINT OF CARE TEST O RDERABLES Performing Organization Address [facility]/ZIP Co de Phone Number [facility] [place] [address] * (ABNORMAL) Differential, Automated (08/26/2022 12:22 AM EDT) Neutrophil % 67.5 % [facility] Neutrophil Absolute 6.01 1.70 - 6.10 x10(3)/mc L [facility] Lymph % 18.8 % [facility] Lymphocytes Abs 1.7 0.9 - 3.2 x10(3)/ L [facility] Monocyte % 8.9 % [facility] Monocyte Abs 0.8 0.3 - 0.9 x10(3)/[facility] Eos % 3.3 % [facility] Eosinophils Abs 0.3 0.0 - 0.4 x10(3)/[facility] Basophil % 0.7 % [facility] Baso Absolute 0.1 0.0 - 0.1 x10(3)/[facility] Immature Gran % 0.80 % [facility] Comment: Immature granulocytes(IG's)percentage and absolute count will include metamyelocytes, myelocytes, and promyelocytes. Blood smears from CBCs yielding IG's will be scanned manually for concordance. If this scan disagrees with the automated IG or if promyelocytes are noted, a manual differential will be performed. Immature Gran Absolute 0.07(H) 0.00 - 0.04 x10(3)/[facility] Blood 08/26/2022 12:2 2 AM EDT 08/26/2022 12:30 AM EDT Narrative Resulting Agency Comment Spec In Lab Tyler Cobb MD HEMATOLOGY ORDERABLE S [facility] [place] [address] * (ABNORMAL) Hemogram (08/26/2022 12:22 AM EDT) White Blood Cell 8.9 4.0 - 9.5 x10(3)/ L [facility] Red Blood Cell 3.80(L) 4.00 - 5.21 x10(6)/mc L [facility] Comment:Dimorphic RBC popula tion. Hemoglobin 8.3(L) 11.7 - 15.5 g/dL [facility] Hematocrit 26.6(L) 35.7 - 45.8 % [facility] Mean Cell Volume 70.0(L) 82.6 - 94.4 fL [facility] Mean Cell Hemoglobin 21.8(L) 27.1 - 32.0 pg [facility] Mean Cell Hemoglobin Concentration 31.2(L) 31.7 - 35.0 g/dL [facility] Platelet 456(H) 145 - 357 x10(3)/mc L [facility] RDW Standard Deviation Not Measured 37.0 - 46.0 fL [facility] RDW coefficient of variation Not Measured 11.5 - 14.1 % [facility] Mean Platelet Volume 9.9 7.6 - 12.9 fL [facility] NRBC% auto 0.0 % [facility] NRBC Absolute 0.000 0.000 - 0.000 x10(3)/mc L [facility] Blood 08/26/2022 12:2 2 AM EDT 08/26/2022 12:30 AM EDT Narrative Resulting Agency Comment Spec In Lab Tyler Cobb MD HEMATOLOGY ORDERABLE S [facility] [place] [address] * (ABNORMAL) Basic Metabolic Panel (non-fasting) (08/26/2022 12:22 AM EDT) Glucose 195 65 - 199 mg/dL [facility] Comment:Diabetes: >=200 mg/d L plus symptoms Blood Urea Nitrogen 12 8 - 18 mg/dL [facility] Creatinine 0.38(L) 0.70 - 1.20 mg/dL [facility] Sodium 137 135 - 145 mmol/L [facility] Potassium 4.0 3.5 - 5.0 mmol/L [facility] Comment: Please note: ??Patients with WBC >100,000 may have falsely elevated Potassium levels. ??For accurate Potassium quantification in these patients send serum separator tube (gold top) for subsequent determinations. ??Contact the Clinical Chemistry Laboratory if there are any questions. Chloride 105 98 - 107 mmol/L [facility] Carbon Dioxide 25 22 - 31 mmol/L [facility] Anion Gap 7 5 - 15 mmol/L [facility] Calcium 9.0 8.5 - 10.5 mg/dL [facility] Est Glomerular Filtration Rate 113 >=60 mL/min/1. 73 m?? [facility] Comment: This patient's estimated GFR was [...] and symptoms in addition to eGFR. Blood 08/26/2022 12:2 2 AM EDT 08/26/2022 12:30 AM EDT Narrative Resulting Agency Comment Spec In Lab Richard Pascal MD CHEMISTRY ORDERABLES [facility] [place] [address] * Phosphorus (08/26/2022 12:22 AM EDT) Phosphorus 2.8 2.5 - 4.5 mg/dL [facility] Blood 08/26/2022 12:2 2 AM EDT 08/26/2022 12:30 AM EDT Narrative Resulting Agency Comment Spec In Lab Richard Pascal MD CHEMISTRY ORDERABLES [facility] [place] [address] * Magnesium (08/26/2022 12:22 AM EDT) Magnesium 0.76 0.69 - 1.07 mmol/L [facility] Blood 08/26/2022 12:2 2 AM EDT 08/26/2022 12:30 AM EDT Narrative Resulting Agency Comment Spec In Lab Richard Pascal MD CHEMISTRY ORDERABLES Performing Organization Address City/[facility]/ZIP Co de Phone Number [facility] [place] [address] * POCT Glucose (08/26/2022 12:19 AM EDT) Glucose, POC 188 65 - 199 mg/dL [facility] Comment: Supplemental ranges: <140 mg/dL before meals <180 mg/dL all other times of the day Blood 08/26/2022 12:1 9 AM EDT 08/26/2022 12:19 AM EDT Milagros Hernandez MD POINT OF CARE TEST O RDVA Performing Organization Address [facility] Co de Phone Number [facility] [place] [address] * POCT Glucose (08/25/2022 7:47 PM EDT) Glucose, POC 182 65 - 199 mg/dL [facility] Comment: Supplemental ranges: <140 mg/dL before meals <180 mg/dL all other times of the day Blood 08/25/2022 7:47 PM EDT 08/25/2022 7:47 PM EDT Milagros Hernandez MD POINT OF CARE TEST O GABRIELLA Performing Organization Address [facility] Co de Phone Number [facility] [place] [address] * POCT Glucose (08/25/2022 4:31 PM EDT) Glucose, POC 156 65 - 199 mg/dL [facility] Comment: Supplemental ranges: <140 mg/dL before meals <180 mg/dL all other times of the day Blood 08/25/2022 4:31 PM EDT 08/25/2022 4:31 PM EDT Milagros Hernandez MD POINT OF CARE TEST O RDERABLES [facility] [place] [address] * POCT Glucose (08/25/2022 3:08 PM EDT) Glucose, POC 113 65 - 199 mg/dL [facility] Comment: Supplemental ranges: <140 mg/dL before meals <180 mg/dL all other times of the day Blood 08/25/2022 3:08 PM EDT 08/25/2022 3:08 PM EDT Milagros Hernandez MD POINT OF CARE TEST O RDERABLES Performing Organization Address City/[facility]/ZIP Co de Phone Number [facility] [place] [address] * POCT Glucose (08/25/2022 2:09 PM EDT) Glucose, POC 146 65 - 199 mg/dL [facility] Comment: Supplemental ranges: <140 mg/dL before meals <180 mg/dL all other times of the day Blood 08/25/2022 2:09 PM EDT 08/25/2022 2:09 PM EDT Milagros Hernandez MD POINT OF CARE TEST O RDERABLES Performing Organization Address City/[facility]/ZIP Co de Phone Number [facility] [place] [address] * POCT Glucose (08/25/2022 12:44 PM EDT) Glucose, POC 197 65 - 199 mg/dL [facility] Comment: Supplemental ranges: <140 mg/dL before meals <180 mg/dL all other times of the day Blood 08/25/2022 12:4 4 PM EDT 08/25/2022 12:44 PM EDT Milagros Hernandez MD POINT OF CARE TEST O RDERABLES [facility] [place] [address] * (ABNORMAL) POCT Glucose (08/25/2022 12:25 PM EDT) Glucose, POC 212(H) 65 - 199 mg/dL [facility] Comment: Supplemental ranges: <140 mg/dL before meals <180 mg/dL all other times of the day Blood 08/25/2022 12:2 5 PM EDT 08/25/2022 12:25 PM EDT Milagros Hernandez MD POINT OF CARE TEST O RDERABLES Performing Organization Address City/[facility] Co de Phone Number [facility] [place] [address] * Valproic Acid Level, Total (08/25/2022 11:28 AM EDT) Valproic Acid 21 mg/L [facility] Comment: Therapeutic Range: Anticonvulsant Therapy: ??50-100 mg/L Manic Episodes Associated with Bipolar Disorder: ??50-125 mg/L Blood 08/25/2022 11:2 8 AM EDT 08/25/2022 11:34 AM EDT Narrative Resulting Agency Comment Spec In Lab Milagros Hernandez MD CHEMISTRY ORDERABLES Performing Organization Address [facility] Co de Phone Number [facility] [place] [address] * POCT Glucose (08/25/2022 11:09 AM EDT) Glucose, POC 185 65 - 199 mg/dL [facility] Comment: Supplemental ranges: <140 mg/dL before meals <180 mg/dL all other times of the day Blood 08/25/2022 11:0 9 AM EDT 08/25/2022 11:09 AM EDT Milagros Hernandez MD POINT OF CARE TEST O RDERABLES Performing Organization Address City/[facility] Co de Phone Number [facility] [place] [address] * POCT Glucose (08/25/2022 9:52 AM EDT) Glucose, POC 162 65 - 199 mg/dL [facility] Comment: Supplemental ranges: <140 mg/dL before meals <180 mg/dL all other times of the day Blood 08/25/2022 9:52 AM EDT 08/25/2022 9:52 AM EDT Milagros Hernandez MD POINT OF CARE TEST O GABRIELLA Performing Organization Address City/[facility] Co de Phone Number [facility] [place] [address] * POCT Glucose (08/25/2022 8:59 AM EDT) Glucose, POC 137 65 - 199 mg/dL [facility] Comment: Supplemental ranges: <140 mg/dL before meals <180 mg/dL all other times of the day Blood 08/25/2022 8:59 AM EDT 08/25/2022 8:59 AM EDT Milagros Hernandez MD POINT OF CARE TEST O GABRIELLA Performing Organization Address [facility] Co de Phone Number [facility] [place] [address] * (ABNORMAL) POCT Glucose (08/25/2022 7:32 AM EDT) Glucose, POC 202(H) 65 - 199 mg/dL [facility] Comment: Supplemental ranges: <140 mg/dL before meals <180 mg/dL all other times of the day Blood 08/25/2022 7:32 AM EDT 08/25/2022 7:32 AM EDT Milagros Hernandez MD POINT OF CARE TEST O RDERAREYMUNDO Performing Organization Address City/[facility] Co de Phone Number [facility] [place] [address] * POCT Glucose (08/25/2022 5:50 AM EDT) Glucose, POC 169 65 - 199 mg/dL [facility] Comment: Supplemental ranges: <140 mg/dL before meals <180 mg/dL all other times of the day Blood 08/25/2022 5:50 AM EDT 08/25/2022 5:50 AM EDT Milagros Hernandez MD POINT OF CARE TEST O RDERABLES Performing Organization Address City/[facility]/ZIP Co de Phone Number [facility] [place] [address] * POCT Glucose (08/25/2022 3:23 AM EDT) Glucose, POC 157 65 - 199 mg/dL [facility] Comment: Supplemental ranges: <140 mg/dL before meals <180 mg/dL all other times of the day Blood 08/25/2022 3:23 AM EDT 08/25/2022 3:23 AM EDT Milagros Hernandez MD POINT OF CARE TEST O RDERAREYMUNDO Performing Organization Address [facility] Co de Phone Number [facility] [place] [address] * POCT Glucose (08/25/2022 2:35 AM EDT) Glucose, POC 163 65 - 199 mg/dL [facility] Comment: Supplemental ranges: <140 mg/dL before meals <180 mg/dL all other times of the day Blood 08/25/2022 2:35 AM EDT 08/25/2022 2:35 AM EDT Milagros Hernandez MD POINT OF CARE TEST O RDERABLES Performing Organization Address City/[facility]/ZIP Co de Phone Number [facility] [place] [address] * Scan, Peripheral Blood (08/25/2022 1:14 AM EDT) Plat estimate Increased [facility] RBC Morphology Abnormal [facility] Macrocyte 1-5 /HPF [facility] Microcyte 6-10 /HPF [facility] Hypochromia Slight [facility] Polychromasia Present >5/HPF [facility] H OSPITAL LABORATORY Ovalocytes 1-5 /HPF [facility] HOSP ITAL LABORATORY Target Cells 1-5 /HPF [facility]ITAL [facility]OR[facility] Connor Cells 1-5 /HPF [facility] Blood 08/25/2022 1:14 AM EDT 08/25/2022 1:14 AM EDT Narrative Resulting Agency Comment Spec In Lab Tyler Cobb MD HEMATOLOGY ORDERABLE S [facility] [place] [address] * (ABNORMAL) Differential, Automated (08/25/2022 1:14 AM EDT) Neutrophil % 72.4 % [facility] Neutrophil Absolute 8.27(H) 1.70 - 6.10 x10(3)/mc L [facility] Lymph % 15.6 % [facility] Lymphocytes Abs 1.8 0.9 - 3.2 x10(3)/mc L [facility] Monocyte % 8.5 % [facility] Monocyte Abs 1.0(H) 0.3 - 0.9 x10(3)/mc L [facility] Eos % 2.3 % [facility] Eosinophils Abs 0.3 0.0 - 0.4 x10(3)/mc L [facility] Basophil % 0.4 % [facility] Baso Absolute 0.0 0.0 - 0.1 x10(3)/mc L [facility] Immature Gran % 0.80 % [facility] Comment: Immature granulocytes(IG's)percentage and absolute count will include metamyelocytes, myelocytes, and promyelocytes. Blood smears from CBCs yielding IG's will be scanned manually for concordance. If this scan disagrees with the automated IG or if promyelocytes are noted, a manual differential will be performed. Immature Gran Absolute 0.09(H) 0.00 - 0.04 x10(3)/mc L [facility] Blood 08/25/2022 1:14 AM EDT 08/25/2022 1:14 AM EDT Narrative Resulting Agency Comment Spec In Lab Tyler Cobb MD HEMATOLOGY ORDERABLE S [facility] [place] [address] * (ABNORMAL) Hemogram (08/25/2022 1:14 AM EDT) White Blood Cell 11.4(H) 4.0 - 9.5 x10(3)/mc L [facility] Red Blood Cell 4.00 4.00 - 5.21 x10(6)/mc L [facility] Comment:Dimorphic RBC popula tion. Hemoglobin 8.6(L) 11.7 - 15.5 g/dL [facility] Hematocrit 27.9(L) 35.7 - 45.8 % [facility] Mean Cell Volume 69.8(L) 82.6 - 94.4 fL [facility] Mean Cell Hemoglobin 21.5(L) 27.1 - 32.0 pg [facility] Mean Cell Hemoglobin Concentration 30.8(L) 31.7 - 35.0 g/dL [facility] Platelet 501(H) 145 - 357 x10(3)/mc L [facility] RDW Standard Deviation Not Measured 37.0 - 46.0 fL [facility] RDW coefficient of variation Not Measured 11.5 - 14.1 % [facility] Mean Platelet Volume 9.8 7.6 - 12.9 fL [facility] HOSPITAL [facility]ORY NRBC% auto 0.0 % [facility] ITAL LABORATORY NRBC Absolute 0.000 0.000 - 0.000 x10(3)/mc L [facility] Blood 08/25/2022 1:14 AM EDT 08/25/2022 1:14 AM EDT Narrative Resulting Agency Comment Spec In Lab Tyler Cobb MD HEMATOLOGY ORDERABLE S [facility] [place] [address] * (ABNORMAL) Basic Metabolic Panel (non-fasting) (08/25/2022 1:14 AM EDT) Glucose 186 65 - 199 mg/dL [facility] Comment:Diabetes: >=200 mg/d L plus symptoms Blood Urea Nitrogen 15 8 - 18 mg/dL [facility] Creatinine 0.38(L) 0.70 - 1.20 mg/dL [facility] Sodium 138 135 - 145 mmol/L [facility] Potassium 4.1 3.5 - 5.0 mmol/L [facility] Comment: Please note: ??Patients with WBC >100,000 may have falsely elevated Potassium levels. ??For accurate Potassium quantification in these patients send serum separator tube (gold top) for subsequent determinations. ??Contact the Clinical Chemistry Laboratory if there are any questions. Chloride 106 98 - 107 mmol/L [facility] Carbon Dioxide 24 22 - 31 mmol/L [facility] Anion Gap 8 5 - 15 mmol/L [facility] Calcium 8.6 8.5 - 10.5 mg/dL [facility] Est Glomerular Filtration Rate 113 >=60 mL/min/1. 73 m?? [facility] Comment: This patient's estimated GFR was [...] and symptoms in addition to eGFR. Blood 08/25/2022 1:14 AM EDT 08/25/2022 1:14 AM EDT Narrative Resulting Agency Comment Spec In Lab Richard Pascal MD CHEMISTRY ORDERABLES [facility] [place] [address] * (ABNORMAL) Phosphorus (08/25/2022 1:14 AM EDT) Phosphorus 2.3(L) 2.5 - 4.5 mg/dL [facility] Blood 08/25/2022 1:14 AM EDT 08/25/2022 1:14 AM EDT Narrative Resulting Agency Comment Spec In Lab Richard Pascal MD CHEMISTRY ORDERABLES Performing Organization Address [facility] de Phone Number [facility] [place] [address] * Magnesium (08/25/2022 1:14 AM EDT) Magnesium 0.82 0.69 - 1.07 mmol/L [facility] Blood 08/25/2022 1:14 AM EDT 08/25/2022 1:14 AM EDT Narrative Resulting Agency Comment Spec In Lab Richard Pascal MD CHEMISTRY ORDERABLES Performing Organization Address [facility] de Phone Number [facility] [place] [address] * POCT Glucose (08/25/2022 1:00 AM EDT) Glucose, POC 186 65 - 199 mg/dL [facility] Comment: Supplemental ranges: <140 mg/dL before meals <180 mg/dL all other times of the day Blood 08/25/2022 1:00 AM EDT 08/25/2022 1:00 AM EDT Milagros Hernandez MD POINT OF CARE TEST O RDERAREYMUNDO Performing Organization Address [facility] de Phone Number [facility] [place] [address] * POCT Glucose (08/24/2022 11:26 PM EDT) Glucose, POC 198 65 - 199 mg/dL [facility] Comment: Supplemental ranges: <140 mg/dL before meals <180 mg/dL all other times of the day Blood 08/24/2022 11:2 6 PM EDT 08/24/2022 11:26 PM EDT Milagros Hernandez MD POINT OF CARE TEST O RDERABLES [facility] [place] [address] * POCT Glucose (08/24/2022 10:16 PM EDT) Glucose, POC 188 65 - 199 mg/dL [facility] Comment: Supplemental ranges: <140 mg/dL before meals <180 mg/dL all other times of the day Blood 08/24/2022 10:1 6 PM EDT 08/24/2022 10:16 PM EDT Milagros Hernandez MD POINT OF CARE TEST O RDERABLES Performing Organization Address [facility] de Phone Number [facility] [place] [address] * POCT Glucose (08/24/2022 9:20 PM EDT) Glucose, POC 195 65 - 199 mg/dL [facility] Comment: Supplemental ranges: <140 mg/dL before meals <180 mg/dL all other times of the day Blood 08/24/2022 9:20 PM EDT 08/24/2022 9:20 PM EDT Milagros Hernandez MD POINT OF CARE TEST O RDERABLES Performing Organization Address [facility] de Phone Number [facility] [place] [address] * POCT Glucose (08/24/2022 7:41 PM EDT) Glucose, POC 185 65 - 199 mg/dL [facility] Comment: Supplemental ranges: <140 mg/dL before meals <180 mg/dL all other times of the day Blood 08/24/2022 7:41 PM EDT 08/24/2022 7:41 PM EDT Milagros Hernandez MD POINT OF CARE TEST O RDERABLES [facility] [place] [address] * POCT Glucose (08/24/2022 6:38 PM EDT) Glucose, POC 136 65 - 199 mg/dL [facility] Comment: Supplemental ranges: <140 mg/dL before meals <180 mg/dL all other times of the day Blood 08/24/2022 6:38 PM EDT 08/24/2022 6:38 PM EDT Milagros Hernandez MD POINT OF CARE TEST O GABRIELLA [facility] [place] [address] * POCT Glucose (08/24/2022 6:00 PM EDT) Glucose, POC 131 65 - 199 mg/dL [facility] Comment: Supplemental ranges: <140 mg/dL before meals <180 mg/dL all other times of the day Blood 08/24/2022 6:00 PM EDT 08/24/2022 6:00 PM EDT Milagros Hernandez MD POINT OF CARE TEST O GABRIELLA Performing Organization Address [facility] de Phone Number [facility] [place] [address] * POCT Glucose (08/24/2022 4:21 PM EDT) Glucose, POC 147 65 - 199 mg/dL [facility] Comment: Supplemental ranges: <140 mg/dL before meals <180 mg/dL all other times of the day Blood 08/24/2022 4:21 PM EDT 08/24/2022 4:21 PM EDT Milagros Hernandez MD POINT OF CARE TEST O GABRIELLA Performing Organization Address [facility] de Phone Number [facility] [place] [address] * POCT Glucose (08/24/2022 3:14 PM EDT) Glucose, POC 160 65 - 199 mg/dL [facility] Comment: Supplemental ranges: <140 mg/dL before meals <180 mg/dL all other times of the day Blood 08/24/2022 3:14 PM EDT 08/24/2022 3:14 PM EDT Milagros Hernandez MD POINT OF CARE TEST O GABRIELLA Performing Organization Address [facility]IP [facility] de Phone Number [facility] [place] [address] * Potassium (08/24/2022 2:21 PM EDT) Potassium 4.4 3.5 - 5.0 mmol/L [facility] Comment: Please note: ??Patients with WBC >100,000 may have falsely elevated Potassium levels. ??For accurate Potassium quantification in these patients send serum separator tube (gold top) for subsequent determinations. ??Contact the Clinical Chemistry Laboratory if there are any questions. Blood 08/24/2022 2:21 PM EDT 08/24/2022 2:36 PM EDT Narrative Resulting Agency Comment Spec In Lab Richard Pascal MD CHEMISTRY ORDERABLES Performing Organization Address [facility] de Phone Number [facility] [place] [address] * POCT Glucose (08/24/2022 2:16 PM EDT) Glucose, POC 168 65 - 199 mg/dL [facility] Comment: Supplemental ranges: <140 mg/dL before meals <180 mg/dL all other times of the day Blood 08/24/2022 2:16 PM EDT 08/24/2022 2:16 PM EDT Milagros Hernandez MD POINT OF CARE TEST O GABRIELLA Performing Organization Address [facility] de Phone Number [facility] [place] [address] * POCT Glucose (08/24/2022 1:10 PM EDT) Glucose, POC 166 65 - 199 mg/dL [facility] Comment: Supplemental ranges: <140 mg/dL before meals <180 mg/dL all other times of the day Blood 08/24/2022 1:10 PM EDT 08/24/2022 1:10 PM EDT Milagros Hernandez MD POINT OF CARE TEST O RDERAREYMUNDO Performing Organization Address [facility]IP [facility] de Phone Number [facility] [place] [address] * POCT Glucose (08/24/2022 12:12 PM EDT) Glucose, POC 185 65 - 199 mg/dL [facility] Comment: Supplemental ranges: <140 mg/dL before meals <180 mg/dL all other times of the day Blood 08/24/2022 12:1 2 PM EDT 08/24/2022 12:12 PM EDT Milagros Hernandez MD POINT OF CARE TEST O GABRIELLA Performing Organization Address [facility] de Phone Number [facility] [place] [address] * (ABNORMAL) Vitamin D, 25-Hydroxy (08/24/2022 11:29 AM EDT) Vitamin D Total 25 OH 12(L) 21 - 100 ng/mL [facility] HOSPITAL LAB[facility]ORY Vit D Interp Deficient [facility] HO SPITAL LABORATORY Blood 08/24/2022 11:2 9 AM EDT 08/24/2022 11:49 AM EDT Narrative Resulting Agency Comment Spec In Lab Dixie Tadeo MD CHEMISTRY ORDERABLES Performing Organization Address [facility]IP [facility] de Phone Number [facility] [place] [address] * PTH (08/24/2022 11:29 AM EDT) Parathyroid Hormone 60 15 - 65 pg/mL [facility] Blood 08/24/2022 11:2 9 AM EDT 08/24/2022 11:49 AM EDT Narrative Resulting Agency Comment Spec In Lab Dixie Tadeo MD CHEMISTRY ORDERABLES Performing Organization Address [facility]IP [facility] de Phone Number [facility] [place] [address] * POCT Glucose (08/24/2022 11:22 AM EDT) Glucose, POC 183 65 - 199 mg/dL [facility] Comment: Supplemental ranges: <140 mg/dL before meals <180 mg/dL all other times of the day Blood 08/24/2022 11:2 2 AM EDT 08/24/2022 11:22 AM EDT Milagros Hernandez MD POINT OF CARE TEST O RDERABLES Performing Organization Address [facility] de Phone Number [facility] [place] [address] * POCT Glucose (08/24/2022 10:27 AM EDT) Glucose, POC 193 65 - 199 mg/dL [facility] Comment: Supplemental ranges: <140 mg/dL before meals <180 mg/dL all other times of the day Blood 08/24/2022 10:2 7 AM EDT 08/24/2022 10:27 AM EDT Milagros Hernandez MD POINT OF CARE TEST O RDERAREYMUNDO Performing Organization Address [facility] de Phone Number [facility] [place] [address] * POCT Glucose (08/24/2022 9:12 AM EDT) Glucose, POC 171 65 - 199 mg/dL [facility] Comment: Supplemental ranges: <140 mg/dL before meals <180 mg/dL all other times of the day Blood 08/24/2022 9:12 AM EDT 08/24/2022 9:12 AM EDT Milagros Hernandez MD POINT OF CARE TEST O RDERABLES Performing Organization Address [facility]IP [facility] de Phone Number [facility] [place] [address] * (ABNORMAL) POCT Glucose (08/24/2022 8:00 AM EDT) Glucose, POC 224(H) 65 - 199 mg/dL [facility] Comment: Supplemental ranges: <140 mg/dL before meals <180 mg/dL all other times of the day Blood 08/24/2022 8:00 AM EDT 08/24/2022 8:00 AM EDT Milagros Hernandez MD POINT OF CARE TEST O RDERABLES Performing Organization Address [facility] de Phone Number [facility] [place] [address] * POCT Glucose (08/24/2022 6:16 AM EDT) Glucose, POC 183 65 - 199 mg/dL [facility] Comment: Supplemental ranges: <140 mg/dL before meals <180 mg/dL all other times of the day Blood 08/24/2022 6:16 AM EDT 08/24/2022 6:16 AM EDT Milagros Hernandez MD POINT OF CARE TEST O RDERABLES Performing Organization Address [facility] de Phone Number [facility] [place] [address] * POCT Glucose (08/24/2022 4:49 AM EDT) Glucose, POC 145 65 - 199 mg/dL [facility] Comment: Supplemental ranges: <140 mg/dL before meals <180 mg/dL all other times of the day Blood 08/24/2022 4:49 AM EDT 08/24/2022 4:49 AM EDT Milagros Hernandez MD POINT OF CARE TEST O RDERABLES Performing Organization Address [facility]/ZIP Co de Phone Number [facility] [place] [address] * POCT Glucose (08/24/2022 4:08 AM EDT) Pathologist [facility] Glucose, POC 135 65 - 199 mg/dL [facility] Comment: Supplemental ranges: <140 mg/dL before meals <180 mg/dL all other times of the day Blood 08/24/2022 4:08 AM EDT 08/24/2022 4:08 AM EDT Milagros Hernandez MD POINT OF CARE TEST O RDERABLES Performing Organization Address [facility] de Phone Number [facility] [place] [address] * Scan, Peripheral Blood (08/24/2022 1:53 AM EDT) [facility] Plat estimate Increased [facility] OSPITAL LABOR[facility]ORY RBC Morphology Abnormal [facility] Microcyte 1-5 /HPF [facility] Hypochromia Slight [facility] Ovalocytes 1-5 /HPF [facility] Randolph Cells 1-5 /HPF [facility] Platelet Clumps Present [facility] Blood 08/24/2022 1:53 AM EDT 08/24/2022 2:02 AM EDT Narrative Resulting Agency Comment Spec In Lab Tyler Cobb MD HEMATOLOGY ORDERABLE S Performing Organization Address [facility] de Phone Number [facility] [place] [address] * (ABNORMAL) Differential, Automated (08/24/2022 1:53 AM EDT) [facility] Neutrophil % 77.0 % [facility] HO SPITAL LABORATORY Neutrophil Absolute 10.61(H) 1.70 - 6.10 x10(3)/mc L [facility] Lymph % 11.1 % [facility] Lymphocytes Abs 1.5 0.9 - 3.2 x10(3)/mc L [facility] Monocyte % 8.2 % [facility] ITAL LABORATORY Monocyte Abs 1.1(H) 0.3 - 0.9 x10(3)/mc L [facility] Eos % 2.2 % [facility] Eosinophils Abs 0.3 0.0 - 0.4 x10(3)/mc L [facility] Basophil % 0.4 % [facility] ITAL LABORATORY Baso Absolute 0.1 0.0 - 0.1 x10(3)/mc L [facility] Immature Gran % 1.10 % [facility] Comment: Immature granulocytes(IG's)percentage and absolute count will include metamyelocytes, myelocytes, and promyelocytes. Blood smears from CBCs yielding IG's will be scanned manually for concordance. If this scan disagrees with the automated IG or if promyelocytes are noted, a manual differential will be performed. Immature Gran Absolute 0.15(H) 0.00 - 0.04 x10(3)/ L [facility] Blood 08/24/2022 1:53 AM EDT 08/24/2022 2:02 AM EDT Narrative Resulting Agency Comment Spec In Lab Tyler Cobb MD HEMATOLOGY ORDERABLE S Performing Organization Address City/[place] [facility] de Phone Number [facility] [place] [address] * (ABNORMAL) Hemogram (08/24/2022 1:53 AM EDT) White Blood Cell 13.8(H) 4.0 - 9.5 x10(3)/mc L [facility] Red Blood Cell 4.05 4.00 - 5.21 x10(6)/ L [facility] Hemoglobin 8.7(L) 11.7 - 15.5 g/dL [facility] Hematocrit 28.1(L) 35.7 - 45.8 % [facility] Mean Cell Volume 69.4(L) 82.6 - 94.4 fL [facility] Mean Cell Hemoglobin 21.5(L) 27.1 - 32.0 pg [facility] Mean Cell Hemoglobin Concentration 31.0(L) 31.7 - 35.0 g/dL [facility] Platelet 504(H) 145 - 357 x10(3)/mc L [facility] RDW Standard Deviation 71.8(H) 37.0 - 46.0 fL [facility] RDW coefficient of variation 31.0(H) 11.5 - 14.1 % [facility]OSPITAL [facility] Mean Platelet Volume 9.7 7.6 - 12.9 fL [facility] HOSPITAL LAB[facility]ORY NRBC% auto 0.1 % [facility] ITAL LABORATORY NRBC Absolute 0.020(H) 0.000 - 0.000 x10(3)/mc L [facility] Blood 08/24/2022 1:53 AM EDT 08/24/2022 2:02 AM EDT Narrative Resulting Agency Comment Spec In Lab Tyler Cobb MD HEMATOLOGY ORDERABLE S [facility] [place] [address] * (ABNORMAL) Basic Metabolic Panel (non-fasting) (08/24/2022 1:53 AM EDT) Glucose 155 65 - 199 mg/dL [facility] Comment:Diabetes: >=200 mg/d L plus symptoms Blood Urea Nitrogen 17 8 - 18 mg/dL [facility] Creatinine 0.45(L) 0.70 - 1.20 mg/dL [facility] Sodium 141 135 - 145 mmol/L [facility] Potassium 3.7 3.5 - 5.0 mmol/L [facility] Comment: Please note: ??Patients with WBC >100,000 may have falsely elevated Potassium levels. ??For accurate Potassium quantification in these patients send serum separator tube (gold top) for subsequent determinations. ??Contact the Clinical Chemistry Laboratory if there are any questions. Chloride 106 98 - 107 mmol/L [facility] Carbon Dioxide 27 22 - 31 mmol/L [facility] Anion Gap 8 5 - 15 mmol/L [facility] Calcium 8.6 8.5 - 10.5 mg/dL [facility] Est Glomerular Filtration Rate 109 >=60 mL/min/1. 73 m?? [facility] Comment: This patient's estimated GFR was [...] and symptoms in addition to eGFR. Blood 08/24/2022 1:53 AM EDT 08/24/2022 2:02 AM EDT Narrative Resulting Agency Comment Spec In Lab Richard Pascal MD CHEMISTRY ORDERABLES [facility] [place] [address] * (ABNORMAL) Phosphorus (08/24/2022 1:53 AM EDT) Phosphorus 2.3(L) 2.5 - 4.5 mg/dL [facility] Blood 08/24/2022 1:53 AM EDT 08/24/2022 2:02 AM EDT Narrative Resulting Agency Comment Spec In Lab Richard Pascal MD CHEMISTRY ORDERABLES Performing Organization Address [facility] [facility] de Phone Number [facility] [place] [address] * Magnesium (08/24/2022 1:53 AM EDT) Magnesium 0.90 0.69 - 1.07 mmol/L [facility] Blood 08/24/2022 1:53 AM EDT 08/24/2022 2:02 AM EDT Narrative Resulting Agency Comment Spec In Lab Richard Pascal MD CHEMISTRY ORDERABLES Performing Organization Address [facility] [facility] de Phone Number [facility] [place] [address] * POCT Glucose (08/24/2022 1:51 AM EDT) Glucose, POC 151 65 - 199 mg/dL [facility] Comment: Supplemental ranges: <140 mg/dL before meals <180 mg/dL all other times of the day Blood 08/24/2022 1:51 AM EDT 08/24/2022 1:51 AM EDT Milagros Hernandez MD POINT OF CARE TEST O RDERAREYMUNDO Performing Organization Address [facility] [facility] de Phone Number [facility] [place] [address] * POCT Glucose (08/24/2022 12:01 AM EDT) Glucose, POC 174 65 - 199 mg/dL [facility] Comment: Supplemental ranges: <140 mg/dL before meals <180 mg/dL all other times of the day Blood 08/24/2022 12:0 1 AM EDT 08/24/2022 12:01 AM EDT Milagros Hernandez MD POINT OF CARE TEST O GABRIELLA Performing Organization Address [facility] [facility] de Phone Number [facility] [place] [address] * POCT Glucose (08/23/2022 11:03 PM EDT) Glucose, POC 180 65 - 199 mg/dL [facility] Comment: Supplemental ranges: <140 mg/dL before meals <180 mg/dL all other times of the day Blood 08/23/2022 11:0 3 PM EDT 08/23/2022 11:03 PM EDT Milagros Hernandez MD POINT OF CARE TEST O RDERAREYMUNDO Performing Organization Address [facility] de Phone Number [facility] [place] [address] * (ABNORMAL) POCT Glucose (08/23/2022 9:10 PM EDT) Glucose, POC 200(H) 65 - 199 mg/dL [facility] Comment: Supplemental ranges: <140 mg/dL before meals <180 mg/dL all other times of the day Blood 08/23/2022 9:10 PM EDT 08/23/2022 9:10 PM EDT Milagros Hernandez MD POINT OF CARE TEST O HUGHERAREYMUNDO [facility] [place] [address] * POCT Glucose (08/23/2022 7:01 PM EDT) Glucose, POC 189 65 - 199 mg/dL [facility] Comment: Supplemental ranges: <140 mg/dL before meals <180 mg/dL all other times of the day Blood 08/23/2022 7:01 PM EDT 08/23/2022 7:01 PM EDT Milagros Hernandez MD POINT OF CARE TEST O HUGHERAREYMUNDO Performing Organization Address [facility] [facility] de Phone Number [facility] [place] [address] * POCT Glucose (08/23/2022 6:09 PM EDT) Glucose, POC 194 65 - 199 mg/dL [facility] Comment: Supplemental ranges: <140 mg/dL before meals <180 mg/dL all other times of the day Blood 08/23/2022 6:09 PM EDT 08/23/2022 6:09 PM EDT Milagros Hernandez MD POINT OF CARE TEST O GABRIELLA Performing Organization Address [facility] [facility] de Phone Number [facility] [place] [address] * (ABNORMAL) POCT Glucose (08/23/2022 4:26 PM EDT) Glucose, POC 214(H) 65 - 199 mg/dL [facility] Comment: Supplemental ranges: <140 mg/dL before meals <180 mg/dL all other times of the day Blood 08/23/2022 4:26 PM EDT 08/23/2022 4:26 PM EDT Milagros Hernandez MD POINT OF CARE TEST O GABRIELLA [facility] [place] [address] * POCT Glucose (08/23/2022 2:56 PM EDT) Glucose, POC 158 65 - 199 mg/dL [facility] Comment: Supplemental ranges: <140 mg/dL before meals <180 mg/dL all other times of the day Blood 08/23/2022 2:56 PM EDT 08/23/2022 2:56 PM EDT Milagros Hernandez MD POINT OF CARE TEST O RDERABLES [facility] [place] [address] * POCT Glucose (08/23/2022 1:32 PM EDT) Glucose, POC 166 65 - 199 mg/dL [facility] Comment: Supplemental ranges: <140 mg/dL before meals <180 mg/dL all other times of the day Blood 08/23/2022 1:32 PM EDT 08/23/2022 1:32 PM EDT Milagros Hernandez MD POINT OF CARE TEST O RDERABLES Performing Organization Address City/[facility]/ZIP Co de Phone Number [facility] [place] [address] * POCT Glucose (08/23/2022 12:06 PM EDT) Glucose, POC 171 65 - 199 mg/dL [facility] Comment: Supplemental ranges: <140 mg/dL before meals <180 mg/dL all other times of the day Blood 08/23/2022 12:0 6 PM EDT 08/23/2022 12:06 PM EDT Milagros Hernandez MD POINT OF CARE TEST O RDERABLES [facility] [place] [address] * POCT Glucose (08/23/2022 11:09 AM EDT) [facility] Glucose, POC 153 65 - 199 mg/dL [facility] Comment: Supplemental ranges: <140 mg/dL before meals <180 mg/dL all other times of the day Blood 08/23/2022 11:0 9 AM EDT 08/23/2022 11:09 AM EDT Milagros Hernandez MD POINT OF CARE TEST O RDERABLES Performing Organization Address [facility] Co de Phone Number [facility] [place] [address] * Scan, Peripheral Blood (08/23/2022 10:55 AM EDT) [facility] Plat estimate Increased [facility] RBC Morphology Abnormal [facility] Microcyte 1-5 /HPF [facility] Hypochromia Slight [facility] LAB[facility] Ovalocytes 1-5 /HPF [facility] ITAL LABORATORY Connor Cells 1-5 /HPF [facility] Platelet Clumps Present [facility] Blood 08/23/2022 10:5 5 AM EDT 08/23/2022 11:03 AM EDT Narrative Resulting Agency Comment Spec In Lab Neva Tomlin MD HEMATOLOGY ORDERABLE S Performing Organization Address [facility] Co de Phone Number [facility] [place] [address] * (ABNORMAL) Differential, Automated (08/23/2022 10:55 AM EDT) [facility] Neutrophil % 81.2 % [facility] SPITAL LABORATORY Neutrophil Absolute 13.28(H) 1.70 - 6.10 x10(3)/mc L [facility] Lymph % 8.6 % [facility] Lymphocytes Abs 1.4 0.9 - 3.2 x10(3)/mc L [facility] Monocyte % 7.0 % [facility] ITAL LABORATORY Monocyte Abs 1.2(H) 0.3 - 0.9 x10(3)/mc L [facility] Eos % 1.7 % [facility] Eosinophils Abs 0.3 0.0 - 0.4 x10(3)/mc L [facility] Basophil % 0.2 % [facility] HOSP ITAL LABORATORY Baso Absolute 0.0 0.0 - 0.1 x10(3)/mc L [facility] Immature Gran % 1.30 % [facility] Comment: Immature granulocytes(IG's)percentage and absolute count will include metamyelocytes, myelocytes, and promyelocytes. Blood smears from CBCs yielding IG's will be scanned manually for concordance. If this scan disagrees with the automated IG or if promyelocytes are noted, a manual differential will be performed. Immature Gran Absolute 0.22(H) 0.00 - 0.04 x10(3)/ L [facility] Blood 08/23/2022 10:5 5 AM EDT 08/23/2022 11:03 AM EDT Narrative Resulting Agency Comment Spec In Lab Neva Tomlin MD HEMATOLOGY ORDERABLE S Performing Organization Address City/State/[place] Co de Phone Number [facility] [place] [address] * (ABNORMAL) Hemogram (08/23/2022 10:55 AM EDT) White Blood Cell 16.4(H) 4.0 - 9.5 x10(3)/ L [facility] Red Blood Cell 3.89(L) 4.00 - 5.21 x10(6)/ L [facility] Hemoglobin 8.6(L) 11.7 - 15.5 g/dL [facility] Hematocrit 27.2(L) 35.7 - 45.8 % [facility] Mean Cell Volume 69.9(L) 82.6 - 94.4 fL [facility] Mean Cell Hemoglobin 22.1(L) 27.1 - 32.0 pg [facility] Mean Cell Hemoglobin Concentration 31.6(L) 31.7 - 35.0 g/dL [facility] Platelet Not Measured 145 - 357 x10(3)/[facility] LABORATORY Comment: Platelet clumps present. Estimate appears Increased. If numerical platelet count is necessary send both a Sodium Citrate tube and an EDTA tube for future platelet count orders. RDW Standard Deviation Not Measured 37.0 - 46.0 fL [facility] H[facility]PITAL LAB[facility]ORY RDW coefficient of variation Not Measured 11.5 - 14.1 % [facility] Mean Platelet Volume Not Measured 7.6 - 12.9 fL [facility] NRBC% auto 0.2 % [facility] NRBC Absolute 0.030(H) 0.000 - 0.000 x10(3)/mc L [facility] Blood 08/23/2022 10:5 5 AM EDT 08/23/2022 11:03 AM EDT Narrative Resulting Agency Comment Spec In Lab Neva Tomlin MD HEMATOLOGY ORDERABLE S [facility] [place] [address] * (ABNORMAL) POCT Glucose (08/23/2022 8:01 AM EDT) Glucose, POC 210(H) 65 - 199 mg/dL [facility] Comment: Supplemental ranges: <140 mg/dL before meals <180 mg/dL all other times of the day Blood 08/23/2022 8:01 AM EDT 08/23/2022 8:01 AM EDT Milagros Hernandez MD POINT OF CARE TEST O RDERABLES Performing Organization Address City/[facility]/ZIP Co de Phone Number [facility] [place] [address] * POCT Glucose (08/23/2022 4:22 AM EDT) Glucose, POC 173 65 - 199 mg/dL [facility] Comment: Supplemental ranges: <140 mg/dL before meals <180 mg/dL all other times of the day Blood 08/23/2022 4:22 AM EDT 08/23/2022 4:22 AM EDT Milagros Hernandez MD POINT OF CARE TEST O RDERABLES [facility] [place] [address] * POCT Glucose (08/23/2022 2:32 AM EDT) [facility] Glucose, POC 181 65 - 199 mg/dL [facility] Comment: Supplemental ranges: <140 mg/dL before meals <180 mg/dL all other times of the day Blood 08/23/2022 2:32 AM EDT 08/23/2022 2:32 AM EDT Milagros Hernandez MD POINT OF CARE TEST O RDERABLES Performing Organization Address [facility] Co de Phone Number [facility] [place] [address] * Scan, Peripheral Blood (08/23/2022 2:30 AM EDT) [facility] Plat estimate Increased [facility] RBC Morphology Abnormal [facility] Microcyte 1-5 /HPF [facility] HOS[facility]AT[facility] Hypochromia Slight [facility] HOS PITAL LABORATORY Ovalocytes 1-5 /HPF [facility] ITAL LABORATORY Target Cells 1-5 /HPF [facility] SPITAL LABORATORY Platelet Clumps Present [facility] Blood 08/23/2022 2:30 AM EDT 08/23/2022 2:42 AM EDT Narrative Resulting Agency Comment Spec In Lab Tyler Cobb MD HEMATOLOGY ORDERABLE S Performing Organization Address [facility] de Phone Number [facility] [place] [address] * (ABNORMAL) Differential, Automated (08/23/2022 2:30 AM EDT) [facility] Neutrophil % 79.7 % [facility] SPITAL [facility] Neutrophil Absolute 13.27(H) 1.70 - 6.10 x10(3)/mc L [facility] Lymph % 9.2 % [facility] Lymphocytes Abs 1.5 0.9 - 3.2 x10(3)/mc L [facility] Monocyte % 7.8 % [facility] ITAL LABORATORY Monocyte Abs 1.3(H) 0.3 - 0.9 x10(3)/mc L [facility] Eos % 1.6 % [facility] Eosinophils Abs 0.3 0.0 - 0.4 x10(3)/mc L [facility] Basophil % 0.2 % [facility] ITAL LABORATORY Baso Absolute 0.0 0.0 - 0.1 x10(3)/ L [facility] Immature Gran % 1.50 % [facility] Comment: Immature granulocytes(IG's)percentage and absolute count will include metamyelocytes, myelocytes, and promyelocytes. Blood smears from CBCs yielding IG's will be scanned manually for concordance. If this scan disagrees with the automated IG or if promyelocytes are noted, a manual differential will be performed. Immature Gran Absolute 0.25(H) 0.00 - 0.04 x10(3)/ L [facility] Blood 08/23/2022 2:30 AM EDT 08/23/2022 2:42 AM EDT Narrative Resulting Agency Comment Spec In Lab Tyler Cobb MD HEMATOLOGY ORDERABLE S [facility] [place] [address] * (ABNORMAL) Hemogram (08/23/2022 2:30 AM EDT) White Blood Cell 16.7(H) 4.0 - 9.5 x10(3)/ L [facility] Red Blood Cell 3.98(L) 4.00 - 5.21 x10(6)/ L [facility] Hemoglobin 8.7(L) 11.7 - 15.5 g/dL [facility] Hematocrit 27.6(L) 35.7 - 45.8 % [facility] Mean Cell Volume 69.3(L) 82.6 - 94.4 fL [facility] Mean Cell Hemoglobin 21.9(L) 27.1 - 32.0 pg [facility] Mean Cell Hemoglobin Concentration 31.5(L) 31.7 - 35.0 g/dL [facility] Platelet Not Measured 145 - 357 x10(3)/[facility] LABORATORY Comment: Platelet clumps present. Estimate appears Increased. If numerical platelet count is necessary send both a Sodium Citrate tube and an EDTA tube for future platelet count orders. RDW Standard Deviation Not Measured 37.0 - 46.0 fL [facility]ITAL [facility] RDW coefficient of variation Not Measured 11.5 - 14.1 % [facility] Mean Platelet Volume Not Measured 7.6 - 12.9 fL [facility]ITAL [facility] NRBC% auto 0.2 % [facility] ITAL LABORATORY NRBC Absolute 0.040(H) 0.000 - 0.000 x10(3)/mc L [facility] Blood 08/23/2022 2:30 AM EDT 08/23/2022 2:42 AM EDT Narrative Resulting Agency Comment Spec In Lab Tyler Cobb MD HEMATOLOGY ORDERABLE S [facility] [place] [address] * (ABNORMAL) Basic Metabolic Panel (non-fasting) (08/23/2022 2:30 AM EDT) Glucose 195 65 - 199 mg/dL [facility] Comment:Diabetes: >=200 mg/d L plus symptoms Blood Urea Nitrogen 16 8 - 18 mg/dL [facility] Creatinine 0.53(L) 0.70 - 1.20 mg/dL [facility] Sodium 142 135 - 145 mmol/L [facility] Potassium 4.2 3.5 - 5.0 mmol/L [facility] Comment: Please note: ??Patients with WBC >100,000 may have falsely elevated Potassium levels. ??For accurate Potassium quantification in these patients send serum separator tube (gold top) for subsequent determinations. ??Contact the Clinical Chemistry Laboratory if there are any questions. Chloride 107 98 - 107 mmol/L [facility] Carbon Dioxide 27 22 - 31 mmol/L [facility] Anion Gap 8 5 - 15 mmol/L [facility] Calcium 8.5 8.5 - 10.5 mg/dL [facility] Est Glomerular Filtration Rate 105 >=60 mL/min/1. 73 m?? [facility] Comment: This patient's estimated GFR was [...] and symptoms in addition to eGFR. Blood 08/23/2022 2:30 AM EDT 08/23/2022 2:42 AM EDT Narrative Resulting Agency Comment Spec In Lab Richard Pascal MD CHEMISTRY ORDERABLES Performing Organization Address City/[facility]/ZIP Co de Phone Number [facility] [place] [address] * Phosphorus (08/23/2022 2:30 AM EDT) Phosphorus 2.8 2.5 - 4.5 mg/dL [facility] Blood 08/23/2022 2:30 AM EDT 08/23/2022 2:42 AM EDT Narrative Resulting Agency Comment Spec In Lab Richard Pascal MD CHEMISTRY ORDERABLES Performing Organization Address City/[facility]/[place] Co de Phone Number [facility] [place] [address] * Magnesium (08/23/2022 2:30 AM EDT) Magnesium 0.80 0.69 - 1.07 mmol/L [facility] Blood 08/23/2022 2:30 AM EDT 08/23/2022 2:42 AM EDT Narrative Resulting Agency Comment Spec In Lab Richard Pascal MD CHEMISTRY ORDERABLES Performing Organization Address City/[facility]/[place] Co de Phone Number [facility] [place] [address] * POCT Glucose (08/23/2022 1:11 AM EDT) Glucose, POC 137 65 - 199 mg/dL [facility] Comment: Supplemental ranges: <140 mg/dL before meals <180 mg/dL all other times of the day Blood 08/23/2022 1:11 AM EDT 08/23/2022 1:11 AM EDT Milagros Hernandez MD POINT OF CARE TEST O GABRIELLA Performing Organization Address City/[facility]/[place] Co de Phone Number [facility] [place] [address] * POCT Glucose (08/23/2022 12:28 AM EDT) Glucose, POC 136 65 - 199 mg/dL [facility] Comment: Supplemental ranges: <140 mg/dL before meals <180 mg/dL all other times of the day Blood 08/23/2022 12:2 8 AM EDT 08/23/2022 12:28 AM EDT Milagros Hernandez MD POINT OF CARE TEST O GABRIELLA Performing Organization Address [facility] Co de Phone Number [facility] [place] [address] * POCT Glucose (08/22/2022 10:15 PM EDT) Glucose, POC 194 65 - 199 mg/dL [facility] Comment: Supplemental ranges: <140 mg/dL before meals <180 mg/dL all other times of the day Blood 08/22/2022 10:1 5 PM EDT 08/22/2022 10:15 PM EDT Milagros Hernandez MD POINT OF CARE TEST O GABRIELLA Performing Organization Address [facility] Co de Phone Number [facility] [place] [address] * POCT Glucose (08/22/2022 9:11 PM EDT) Glucose, POC 162 65 - 199 mg/dL [facility] Comment: Supplemental ranges: <140 mg/dL before meals <180 mg/dL all other times of the day Blood 08/22/2022 9:11 PM EDT 08/22/2022 9:11 PM EDT Milagros Hernandez MD POINT OF CARE TEST O RDERABLES Performing Organization Address City/[facility]/[place] Co de Phone Number [facility] [place] [address] * POCT Glucose (08/22/2022 6:47 PM EDT) Glucose, POC 181 65 - 199 mg/dL [facility] Comment: Supplemental ranges: <140 mg/dL before meals <180 mg/dL all other times of the day Blood 08/22/2022 6:47 PM EDT 08/22/2022 6:47 PM EDT Milagros Hernandez MD POINT OF CARE TEST O RDERABLES Performing Organization Address [facility] Co de Phone Number [facility] [place] [address] * POCT Glucose (08/22/2022 6:14 PM EDT) Glucose, POC 193 65 - 199 mg/dL [facility] Comment: Supplemental ranges: <140 mg/dL before meals <180 mg/dL all other times of the day Blood 08/22/2022 6:14 PM EDT 08/22/2022 6:14 PM EDT Milagros Hernandez MD POINT OF CARE TEST O RDERABLES Performing Organization Address [facility] Co de Phone Number [facility] [place] [address] * (ABNORMAL) POCT Glucose (08/22/2022 5:37 PM EDT) Glucose, POC 202(H) 65 - 199 mg/dL [facility] Comment: Supplemental ranges: <140 mg/dL before meals <180 mg/dL all other times of the day Blood 08/22/2022 5:37 PM EDT 08/22/2022 5:37 PM EDT Milagros Hernandez MD POINT OF CARE TEST O RDERABLES [facility] [place] [address] * (ABNORMAL) POCT Glucose (08/22/2022 4:17 PM EDT) Glucose, POC 207(H) 65 - 199 mg/dL [facility] Comment: Supplemental ranges: <140 mg/dL before meals <180 mg/dL all other times of the day Blood 08/22/2022 4:17 PM EDT 08/22/2022 4:17 PM EDT Milagros Hernandez MD POINT OF CARE TEST O RDERABLES Performing Organization Address [facility] Co de Phone Number [facility] [place] [address] * POCT Glucose (08/22/2022 2:01 PM EDT) Glucose, POC 147 65 - 199 mg/dL [facility] Comment: Supplemental ranges: <140 mg/dL before meals <180 mg/dL all other times of the day Blood 08/22/2022 2:01 PM EDT 08/22/2022 2:01 PM EDT Milagros Hernandez MD POINT OF CARE TEST O RDERABLES Performing Organization Address [facility] Co de Phone Number [facility] [place] [address] * POCT Glucose (08/22/2022 12:10 PM EDT) Glucose, POC 121 65 - 199 mg/dL [facility] Comment: Supplemental ranges: <140 mg/dL before meals <180 mg/dL all other times of the day Blood 08/22/2022 12:1 0 PM EDT 08/22/2022 12:10 PM EDT Milagros Hernandez MD POINT OF CARE TEST O RDERABLES Performing Organization Address City/[facility]/ZIP Co de Phone Number [facility] [place] [address] * Prepare RBC (08/22/2022 11:15 AM EDT) Dispensed? Yes [facility] Blood 08/22/2022 11:1 5 AM EDT 08/22/2022 11:11 AM EDT Milagros Hernandez MD BLOOD BANK PRODUCT O RDERABLES [facility] [place] [address] * POCT Glucose (08/22/2022 10:03 AM EDT) Glucose, POC 145 65 - 199 mg/dL [facility] Comment: Supplemental ranges: <140 mg/dL before meals <180 mg/dL all other times of the day Blood 08/22/2022 10:0 3 AM EDT 08/22/2022 10:03 AM EDT Milagros Hernandez MD POINT OF CARE TEST O RDERABLES Performing Organization Address [facility]/ZIP Co de Phone Number [facility] [place] [address] * Type and Screen Validity (08/22/2022 9:00 AM EDT) T&S only valid at [facility] LABORATORY Comment:This Type and Screen result is only valid at the [facility] Blood 08/22/2022 9:00 AM EDT 08/22/2022 9:33 AM EDT Narrative Resulting Agency Comment Spec In Lab Reynaldo Avila MD BLOOD BANK LAB SUMI JONES Performing Organization Address City/[facility]/ZIP Co de Phone Number [facility] [place] [address] * ABORH Recheck Status (08/22/2022 9:00 AM EDT) [facility] Recheck Order Order Placed [facility] ABORH Type Recheck Complete [facility] Blood 08/22/2022 9:00 AM EDT 08/22/2022 9:33 AM EDT Narrative Resulting Agency Comment Spec In Lab Reynaldo Avila MD BLOOD BANK LAB ORDYoli JONES [facility] [place] [address] * Antibody screen (08/22/2022 9:00 AM EDT) Ab Screen Interp Negative [facility] Expires at [id number] on: 08/25/2022 [facility] Blood 08/22/2022 9:00 AM EDT 08/22/2022 9:33 AM EDT Narrative Resulting Agency Comment Spec In Lab Reynaldo Avila MD BLOOD BANK LAB SUMI JONES Performing Organization Address [facility]/[place] Co de Phone Number [facility] [place] [address] * ABO/Rh Typing (08/22/2022 9:00 AM EDT) ABORH Type O Pos [facility] Blood 08/22/2022 9:00 AM EDT 08/22/2022 9:33 AM EDT Narrative Resulting Agency Comment Spec In Lab Reynaldo Avila MD BLOOD BANK LAB ORDYoli JONES Performing Organization Address City/[facility]/[place] Co de Phone Number [facility] [place] [address] * POCT Glucose (08/22/2022 8:00 AM EDT) Glucose, POC 156 65 - 199 mg/dL [facility] Comment: Supplemental ranges: <140 mg/dL before meals <180 mg/dL all other times of the day Blood 08/22/2022 8:00 AM EDT 08/22/2022 8:00 AM EDT Milagros Hernandez MD POINT OF CARE TEST O RDERABLES [facility] [place] [address] * POCT Glucose (08/22/2022 5:53 AM EDT) Glucose, POC 154 65 - 199 mg/dL [facility] Comment: Supplemental ranges: <140 mg/dL before meals <180 mg/dL all other times of the day Blood 08/22/2022 5:53 AM EDT 08/22/2022 5:53 AM EDT Milagros Hernandez MD POINT OF CARE TEST O RDERABLES Performing Organization Address City/[facility]/ZIP Co de Phone Number [facility] [place] [address] * POCT Glucose (08/22/2022 3:40 AM EDT) Glucose, POC 182 65 - 199 mg/dL [facility] Comment: Supplemental ranges: <140 mg/dL before meals <180 mg/dL all other times of the day Blood 08/22/2022 3:40 AM EDT 08/22/2022 3:40 AM EDT Milagros Hernandez MD POINT OF CARE TEST O RDERABLES Performing Organization Address City/[facility]/[place] Co de Phone Number [facility] [place] [address] * (ABNORMAL) Differential, Automated (08/22/2022 3:39 AM EDT) Neutrophil % 79.0 % [facility] LAB[facility] Neutrophil Absolute 13.15(H) 1.70 - 6.10 x10(3)/mc L [facility] Lymph % 10.5 % [facility] Lymphocytes Abs 1.7 0.9 - 3.2 x10(3)/[facility] LABORATORY Monocyte % 6.8 % [facility] HOSP ITAL LABORATORY Monocyte Abs 1.1(H) 0.3 - 0.9 x10(3)/mc L [facility] Eos % 0.9 % [facility] Eosinophils Abs 0.2 0.0 - 0.4 x10(3)/mc L [facility] Basophil % 0.2 % [facility] HOSP ITAL LABORATORY Baso Absolute 0.0 0.0 - 0.1 x10(3)/mc L [facility] Immature Gran % 2.60 % [facility] Comment: Immature granulocytes(IG's)percentage and absolute count will include metamyelocytes, myelocytes, and promyelocytes. Blood smears from CBCs yielding IG's will be scanned manually for concordance. If this scan disagrees with the automated IG or if promyelocytes are noted, a manual differential will be performed. Immature Gran Absolute 0.44(H) 0.00 - 0.04 x10(3)/ L [facility] Blood 08/22/2022 3:39 AM EDT 08/22/2022 3:47 AM EDT Narrative Resulting Agency Comment Spec In Lab Tyler Cobb MD HEMATOLOGY ORDERABLE S Performing Organization Address City/State/[place] Co de Phone Number [facility] [place] [address] * (ABNORMAL) Hemogram (08/22/2022 3:39 AM EDT) White Blood Cell 16.6(H) 4.0 - 9.5 x10(3)/ L [facility] Red Blood Cell 3.54(L) 4.00 - 5.21 x10(6)/mc L [facility] Hemoglobin 7.1(L) 11.7 - 15.5 g/dL [facility] Hematocrit 23.7(L) 35.7 - 45.8 % [facility] Mean Cell Volume 66.9(L) 82.6 - 94.4 fL [facility] Mean Cell Hemoglobin 20.1(L) 27.1 - 32.0 pg [facility] Mean Cell Hemoglobin Concentration 30.0(L) 31.7 - 35.0 g/dL [facility] Platelet 445(H) 145 - 357 x10(3)/mc L [facility] RDW Standard Deviation 68.9(H) 37.0 - 46.0 fL [facility] RDW coefficient of variation 31.0(H) 11.5 - 14.1 % [facility] Mean Platelet Volume 10.2 7.6 - 12.9 fL [facility] NRBC% auto 0.2 % [facility] ITAL LABORATORY NRBC Absolute 0.040(H) 0.000 - 0.000 x10(3)/mc L [facility] Blood 08/22/2022 3:39 AM EDT 08/22/2022 3:47 AM EDT Narrative Resulting Agency Comment Spec In Lab Tyler Cobb MD HEMATOLOGY ORDERABLE S [facility] [place] [address] * (ABNORMAL) Basic Metabolic Panel (non-fasting) (08/22/2022 3:39 AM EDT) Glucose 191 65 - 199 mg/dL [facility] Comment:Diabetes: >=200 mg/d L plus symptoms Blood Urea Nitrogen 20(H) 8 - 18 mg/dL [facility] Creatinine 0.56(L) 0.70 - 1.20 mg/dL [facility] Sodium 145 135 - 145 mmol/L [facility] Potassium 4.1 3.5 - 5.0 mmol/L [facility] Comment: Please note: ??Patients with WBC >100,000 may have falsely elevated Potassium levels. ??For accurate Potassium quantification in these patients send serum separator tube (gold top) for subsequent determinations. ??Contact the Clinical Chemistry Laboratory if there are any questions. Chloride 111(H) 98 - 107 mmol/L [facility] Carbon Dioxide 27 22 - 31 mmol/L [facility] Anion Gap 7 5 - 15 mmol/L [facility] Calcium 8.7 8.5 - 10.5 mg/dL [facility] Est Glomerular Filtration Rate 103 >=60 mL/min/1. 73 m?? [facility] Comment: This patient's estimated GFR was [...] and symptoms in addition to eGFR. Blood 08/22/2022 3:39 AM EDT 08/22/2022 3:47 AM EDT Narrative Resulting Agency Comment Spec In Lab Richard Pascal MD CHEMISTRY ORDERABLES Performing Organization Address [facility]/[place] Co de Phone Number [facility] [place] [address] * (ABNORMAL) Phosphorus (08/22/2022 3:39 AM EDT) Phosphorus 2.4(L) 2.5 - 4.5 mg/dL [facility] Blood 08/22/2022 3:39 AM EDT 08/22/2022 3:47 AM EDT Narrative Resulting Agency Comment Spec In Lab Richard Pascal MD CHEMISTRY ORDERABLES Performing Organization Address [facility] Co de Phone Number [facility] [place] [address] * Magnesium (08/22/2022 3:39 AM EDT) [facility] Magnesium 0.86 0.69 - 1.07 mmol/L [facility] Blood 08/22/2022 3:39 AM EDT 08/22/2022 3:47 AM EDT Narrative Resulting Agency Comment Spec In Lab Richard Pascal MD CHEMISTRY ORDERABLES Performing Organization Address [facility] Co de Phone Number [facility] [place] [address] * (ABNORMAL) POCT Glucose (08/22/2022 2:15 AM EDT) Glucose, POC 232(H) 65 - 199 mg/dL [facility] Comment: Supplemental ranges: <140 mg/dL before meals <180 mg/dL all other times of the day Blood 08/22/2022 2:15 AM EDT 08/22/2022 2:15 AM EDT Milagros Hernandez MD POINT OF CARE TEST O GABRIELLA Performing Organization Address City/[facility]/ZIP Co de Phone Number [facility] [place] [address] * (ABNORMAL) POCT Glucose (08/22/2022 12:43 AM EDT) Glucose, POC 233(H) 65 - 199 mg/dL [facility] Comment: Supplemental ranges: <140 mg/dL before meals <180 mg/dL all other times of the day Blood 08/22/2022 12:4 3 AM EDT 08/22/2022 12:43 AM EDT Milagros Hernandez MD POINT OF CARE TEST O GABRIELLA Performing Organization Address [facility]/[place] Co de Phone Number [facility] [place] [address] * XR Pelvis (Generic) (08/22/2022 12:19 AM EDT) Anatomical Region Laterality Modality Pelvis N/A Digital Radiogra phy Impressions 08/22/2022 10:25 AM EDT No radiographic evidence of infection status post left hip ORIF. Thank you for letting us participate in the care of this patient. ??If you are a health care provider and have any questions regarding this report, please contact the number below. ??For patients who have questions please contact the health acute care physician that requested your imaging first. ? Narrative 08/22/2022 10:25 AM EDT EXAMINATION: XR PELVIS (GENERIC) CLINICAL HISTORY: concern for hip infection s/p orif TECHNIQUE: 1 views of the pelvis COMPARISON: CT from 08/20/2022 FINDINGS: Unchanged appearance of prior left femoral neck ORIF with slight protrusion of the 3 fixation screws. The fracture alignment and hip joint alignments are unchanged. No abnormal soft tissue density. No osseous erosion. A Mcrae catheter projects in the pelvis. Large dense rectal stool burden. Procedure Note Richard Billings MD - 08/22/2022 EXAMINATION: XR PELVIS (GENERIC) CLINICAL HISTORY: concern for hip infection s/p orif TECHNIQUE: 1 views of the pelvis COMPARISON: CT from 08/20/2022 FINDINGS: Unchanged appearance of prior left femoral neck ORIF with slightprotrusion of the 3 fixation screws. The fracture alignment and hip joint alignmentsare unchanged. No abnormal soft tissue density. No osseous erosion. A Foleycatheter projects in the pelvis. Large dense rectal stool burden. IMPRESSION No radiographic evidence of infection status post left hip ORIF. Thank you for letting us participate in the care of this patient. If youare a health care provider and have any questions regarding this report,please contact the number below. For patients who have questions please contactthe health acute care physician that requested your imaging first. Electronically signed by: Richard Billings MD, [facility]([phone]), at 08/22/2022 10:25 AM Milagros Hernandez MD IMG DX ORDERABLES * XR Hip 2-3 Views Left (08/22/2022 12:19 AM EDT) Anatomical Region Laterality Modality Hip Left Digital Radiogra phy Impressions 08/22/2022 12:43 PM EDT No radiographic evidence of infection. Thank you for letting us participate in the care of this patient. ??If you are a health care provider and have any questions regarding this report, please contact the number below. ??For patients who have questions please contact the health acute care physician that requested your imaging first. ? Electronically signed by: Viktor Cervantes MD, [facility] ([phone]), at 08/22/2022 12:43 PM Narrative 08/22/2022 12:43 PM EDT EXAMINATION: XR HIP 2-3 VIEWS LEFT CLINICAL HISTORY: Concern for hip infection s/p ORIF TECHNIQUE: Left hip AP and lateral COMPARISON: June 12, 2022 FINDINGS: There are three partially threaded cannulated screws in the left femoral neck. Deformity of the neck is secondary to a previous fracture. The fracture line is not clearly seen. There is no destructive lesion of the femur. The joint space of the left hip is intact. No lucency has developed surrounding the screws. There is no adjacent soft tissue gas. There is a large amount of stool in the rectum. A temperature probe is present. Procedure Note Viktor Cervantes MD - 08/22/2022 EXAMINATION: XR HIP 2-3 VIEWS LEFT CLINICAL HISTORY: Concern for hip infection s/p ORIF TECHNIQUE: Left hip AP and lateral COMPARISON: June 12, 2022 FINDINGS: There are three partially threaded cannulated screws in the left femoralneck. Deformity of the neck is secondary to a previous fracture. The fractureline is not clearly seen. There is no destructive lesion of the femur. The jointspace of the left hip is intact. No lucency has developed surrounding thescrews. There is no adjacent soft tissue gas. There is a large amount of stool in the rectum. A temperature probe ispresent. IMPRESSION No radiographic evidence of infection. Thank you for letting us participate in the care of this patient. If youare a health care provider and have any questions regarding this report,please contact the number below. For patients who have questions please contactthe health acute care physician that requested your imaging first. Electronically signed by: [facility]([phone]), at 08/22/2022 12:43 PM Milagros Hernandez MD IMG DX ORDERABLES * (ABNORMAL) POCT Glucose (08/21/2022 10:26 PM EDT) Glucose, POC 226(H) 65 - 199 mg/dL [facility] Comment: Supplemental ranges: <140 mg/dL before meals <180 mg/dL all other times of the day Blood 08/21/2022 10:2 6 PM EDT 08/21/2022 10:26 PM EDT Milagros Hernandez MD POINT OF CARE TEST O RDERAREYMUNDO [facility] [place] [address] * POCT Glucose (08/21/2022 7:48 PM EDT) Glucose, POC 123 65 - 199 mg/dL [facility] Comment: Supplemental ranges: <140 mg/dL before meals <180 mg/dL all other times of the day Blood 08/21/2022 7:48 PM EDT 08/21/2022 7:48 PM EDT Milagros Hernandez MD POINT OF CARE TEST O RDERAREYMUNDO Performing Organization Address City/[facility]/ZIP Co de Phone Number [facility] [place] [address] * POCT Glucose (08/21/2022 5:59 PM EDT) Glucose, POC 138 65 - 199 mg/dL [facility] Comment: Supplemental ranges: <140 mg/dL before meals <180 mg/dL all other times of the day Blood 08/21/2022 5:59 PM EDT 08/21/2022 5:59 PM EDT Milagros Hernandez MD POINT OF CARE TEST O RDERAREYMUNDO Performing Organization Address City/[facility]/ZIP Co de Phone Number [facility] [place] [address] * POCT Glucose (08/21/2022 5:06 PM EDT) Glucose, POC 152 65 - 199 mg/dL [facility] Comment: Supplemental ranges: <140 mg/dL before meals <180 mg/dL all other times of the day Blood 08/21/2022 5:06 PM EDT 08/21/2022 5:06 PM EDT Milagros Hernandez MD POINT OF CARE TEST O RDERABLES Performing Organization Address City/[facility]/ZIP Co de Phone Number [facility] [place] [address] * Cell Count, Bronchoalveolar Lavage (08/21/2022 4:50 PM EDT) Color BAL White [facility] Appearance, BAL Hazy [facility] NUC, BAL Count 422 mcL [facility] Seg BAL 87 % [facility] Lymph, BAL 10 % [facility] Macrophage BAL 2 % [facility] Eos, BAL 1 % [facility] Total Cells, BAL 200 Cells [facility] Bronchial Alveolar Lavage 08/21/2022 4:50 PM EDT 08/21/2022 5:37 PM EDT Narrative Resulting Agency Comment Spec In Lab Milagros Hernandez MD BODY FLUIDS AND STOO LS ORDERABLES Performing Organization Address [facility]/[place] Co de Phone Number [facility] [place] [address] * Calcofluor White Stain (08/21/2022 4:50 PM EDT) Calcofluor Stain Calcofluor White Preparation: Negative [facility] Bronchial Alveolar Lavage 08/21/2022 4:50 PM EDT 08/21/2022 5:37 PM EDT Comment:JACQUI Narrative Resulting Agency Comment Spec In Lab Reynaldo Avila MD MICROBIOLOGY - GENE RAL ORDERABLES Performing Organization Address [facility] Co de Phone Number [facility] [place] [address] * (ABNORMAL) Fungus culture (08/21/2022 4:50 PM EDT) Fungus Culture Rare Jacky albicans(A) [facility] Organism Jacky albicans(A) [facility] Bronchial Alveolar Lavage 08/21/2022 4:50 PM EDT 08/21/2022 5:37 PM EDT Comment:JACQUI Narrative Resulting Agency Comment Spec In Lab Reynaldo Avila MD MICROBIOLOGY - GENE RAL ORDERABLES Performing Organization Address City/[facility]/[place] Co de Phone Number [facility] [place] [address] * AFB culture Bronchial Alveolar Lavage (08/21/2022 4:50 PM EDT) Acid Fast Bacilli Culture No Acid Fast Bacilli isolated If active tuberculosis is suspected, the patient should be on AIRBORNE PRECAUTIONS. Call Infection Prevention for assistance if needed. [facility] Acid Fast Stain No Acid Fast Bacilli seen [facility] Bronchial Alveolar Lavage 08/21/2022 4:50 PM EDT 08/21/2022 5:37 PM EDT Comment:JACQUI Narrative Resulting Agency Comment Spec In Lab Milagros Hernandez MD MICROBIOLOGY - GENER AL ORDERABLES Performing Organization Address [facility] [address] * Lower Respiratory Culture Bronchial Alveolar Lavage (08/21/2022 4:50 PM EDT) Lower Respiratory Culture Rare mixed bacterial morphotypes suggestive of normal upper respiratory wiley [facility] Gram Stain Few Neutrophils seen No squamous epithelial cells seen No microorganisms seen. [facility] Bronchial Alveolar Lavage 08/21/2022 4:50 PM EDT 08/21/2022 5:37 PM EDT Comment:JACQUI Narrative Resulting Agency Comment Spec In Lab Milagros Hernandez MD MICROBIOLOGY - GENER AL ORDERABLES Performing Organization Address [facility] Co de Phone Number [facility] [place] [address] * Cell Count, Bronchoalveolar Lavage (08/21/2022 4:45 PM EDT) Color BAL White [facility] Appearance, BAL Cloudy [facility] NUC, BAL Count 1,471 mcL [facility] Seg BAL 81 % [facility] Lymph, BAL 17 % [facility] Macrophage BAL 2 % [facility] Total Cells, BAL 200 Cells [facility] Bronchial Alveolar Lavage 08/21/2022 4:45 PM EDT 08/21/2022 5:36 PM EDT Narrative Resulting Agency Comment Spec In Lab Aileen Mayorga MD BODY FLUIDS AND STOO LS ORDERABLES Performing Organization Address City/[facility]/ZIP Co de Phone Number [facility] [place] [address] * Calcofluor White Stain (08/21/2022 4:45 PM EDT) Calcofluor Stain Calcofluor White Preparation: Negative [facility] Bronchial Alveolar Lavage 08/21/2022 4:45 PM EDT 08/21/2022 5:39 PM EDT Narrative Resulting Agency Comment Spec In Lab Reynaldo Avila MD MICROBIOLOGY - GENE RAL ORDERABLES Performing Organization Address [facility]/[place] Co de Phone Number [facility] [place] [address] * (ABNORMAL) Fungus culture (08/21/2022 4:45 PM EDT) Fungus Culture Rare Jacky albicans(A) [facility] Organism Jacky albicans(A) [facility] Bronchial Alveolar Lavage 08/21/2022 4:45 PM EDT 08/21/2022 5:39 PM EDT Narrative Resulting Agency Comment Spec In Lab Reynaldo Avila MD MICROBIOLOGY - GENE RAL ORDERABLES Performing Organization Address City/[facility]/ZIP Co de Phone Number [facility] [place] [address] * AFB culture Bronchial Alveolar Lavage (08/21/2022 4:45 PM EDT) Acid Fast Bacilli Culture No Acid Fast Bacilli isolated If active tuberculosis is suspected, the patient should be on AIR[employer]OR[employer] PRECAUTIONS. Call Infection Prevention for assistance if needed. [facility] Acid Fast Stain No Acid Fast Bacilli seen [facility] Bronchial Alveolar Lavage 08/21/2022 4:45 PM EDT 08/21/2022 5:39 PM EDT Narrative Resulting Agency Comment Spec In Lab Milagros Hernandez MD MICROBIOLOGY - GENER AL ORDERABLES Performing Organization Address City/[facility]/[place] Co de Phone Number [facility] [place] [address] * Lower Respiratory Culture Bronchial Alveolar Lavage (08/21/2022 4:45 PM EDT) Pathologist [facility] Lower Respiratory Culture Rare mixed bacterial morphotypes suggestive of normal upper respiratory wiley [facility] Gram Stain Moderate Neutrophils seen No squamous epithelial cells seen No microorganisms seen. [facility] Bronchial Alveolar Lavage 08/21/2022 4:45 PM EDT 08/21/2022 5:39 PM EDT Narrative Resulting Agency Comment Spec In Lab Milagros Hernandez MD MICROBIOLOGY - GENER AL ORDERABLES Performing Organization Address [facility] Co de Phone Number [facility] [place] [address] * Potassium (08/21/2022 3:45 PM EDT) Potassium 3.9 3.5 - 5.0 mmol/L [facility] Comment: Please note: ??Patients with WBC >100,000 may have falsely elevated Potassium levels. ??For accurate Potassium quantification in these patients send serum separator tube (gold top) for subsequent determinations. ??Contact the Clinical Chemistry Laboratory if there are any questions. Blood 08/21/2022 3:45 PM EDT 08/21/2022 4:09 PM EDT Narrative Resulting Agency Comment Spec In Lab Richard Pascal MD CHEMISTRY ORDERABLES Performing Organization Address City/[facility]/[place] Co de Phone Number [facility] [place] [address] * POCT Glucose (08/21/2022 3:24 PM EDT) Glucose, POC 148 65 - 199 mg/dL [facility] Comment: Supplemental ranges: <140 mg/dL before meals <180 mg/dL all other times of the day Blood 08/21/2022 3:24 PM EDT 08/21/2022 3:24 PM EDT Milagros Hernandez MD POINT OF CARE TEST O RDERABLES [facility] [place] [address] * IR Ultrasound in IR (08/21/2022 3:09 PM EDT) Anatomical Region Laterality Modality Abdomen X-Ray Angiograph y Addenda Addendum by Azeem Alarcon MD on 09/16/2022 6:54 PM EDT Aspiration of collection only, no drain placed. Performed at bedside, local anesthesia only administered. Narrative 09/16/2022 6:51 PM EDT IR PROCEDURE NOTE: ?? US-guided drain placement Indication : recent ORIF, now w/ leukocytosis and fever with fluid collection seen lateral to hip on CT Technique: After discussing risks (including infection and hemorrhage), and benefits, patient consented to the procedure. ??Due to the painful nature of the procedure, split doses of fentanyl were administered by the IR nurse during continuous monitoring of pulse, blood pressure and oxygen saturation. ?? Lesion was localized with US. ??After sterile preparation of the overlying skin, 6cc 1% lidocaine SQ was administered for anesthesia, and an 18 ga needle was advanced under US guidance into the collection. ??Scant bloody fluid aspirated, submitted for culture. ??Patient tolerated the procedure well. ??There were no immediate complications. Fluoro time: ??0 min. ??Contrast: 0 cc Omni 350. ??EBL : 0 cc Findings: burgendy 6 cc fluid collection Impression: Technically successful aspiration left hip 2 x 3 cm collection. Attending: ??I, Dr. Alarcon, was present throughout the procedure. I was present during the intraservice time as documented by the IR Nurse. ?? Milagros Hernandez MD IMG IR ORDERABLES * POCT Glucose (08/21/2022 1:34 PM EDT) Glucose, POC 191 65 - 199 mg/dL [facility] Comment: Supplemental ranges: <140 mg/dL before meals <180 mg/dL all other times of the day Blood 08/21/2022 1:34 PM EDT 08/21/2022 1:34 PM EDT Milagros Hernandez MD POINT OF CARE TEST O RDERABLES Performing Organization Address [facility] Co de Phone Number [facility] [place] [address] * POCT Glucose (08/21/2022 12:58 PM EDT) Glucose, POC 196 65 - 199 mg/dL [facility] Comment: Supplemental ranges: <140 mg/dL before meals <180 mg/dL all other times of the day Blood 08/21/2022 12:5 8 PM EDT 08/21/2022 12:58 PM EDT Milagros Hernandez MD POINT OF CARE TEST O RDERABLES Performing Organization Address [facility]/[place] Co de Phone Number [facility] [place] [address] * (ABNORMAL) CRP, acute inflammation (08/21/2022 12:00 PM EDT) C-Reactive Protein 19.4(H) <=4.9 mg/L [facility] Blood 08/21/2022 12:0 0 PM EDT 08/21/2022 12:24 PM EDT Narrative Resulting Agency Comment Spec In Lab Milagros Hernandez MD CHEMISTRY ORDERABLES Performing Organization Address [facility]/[place] Co de Phone Number [facility] [place] [address] * (ABNORMAL) Sedimentation rate (08/21/2022 12:00 PM EDT) Sedimentation Rate Automated >119(H) 2 - 39 mm/hr [facility] Comment: Effective April 19, 2019 new capillary photometric technology has resulted in a change in reference ranges. It is recommended that each ESR result be reviewed with its own age appropriate reference range. Blood 08/21/2022 12:0 0 PM EDT 08/21/2022 12:24 PM EDT Narrative Resulting Agency Comment Spec In Lab Milagros Hernandez MD HEMATOLOGY ORDERABLE S Performing Organization Address [facility]/[place] Co de Phone Number [facility] [place] [address] * POCT Glucose (08/21/2022 11:56 AM EDT) Pathologist [facility] Glucose, POC 182 65 - 199 mg/dL [facility] Comment: Supplemental ranges: <140 mg/dL before meals <180 mg/dL all other times of the day Blood 08/21/2022 11:5 6 AM EDT 08/21/2022 11:56 AM EDT Milagros Hernandez MD POINT OF CARE TEST O RDERABLES Performing Organization Address [facility] de Phone Number [facility] [place] [address] * Potassium (08/21/2022 10:00 AM EDT) [facility] Potassium 4.4 3.5 - 5.0 mmol/L [facility] Comment: Please note: ??Patients with WBC >100,000 may have falsely elevated Potassium levels. ??For accurate Potassium quantification in these patients send serum separator tube (gold top) for subsequent determinations. ??Contact the Clinical Chemistry Laboratory if there are any questions. Blood Venous Draw / Unknown 08/21/2022 10:00 AM EDT 08/21/2022 10:18 AM EDT Narrative Resulting Agency Comment Spec In Lab Tyler Cobb MD CHEMISTRY ORDERABLES [facility] [place] [address] * Ferritin (08/21/2022 10:00 AM EDT) Ferritin 85 30 - 400 ng/mL [facility] Comment: Pediatric reference ranges not verified at [facility], interpret with caution. Reference ranges for females greater than 50 years of age approach values for men, i.e., 30-400 ng/mL. Blood 08/21/2022 10:0 0 AM EDT 08/21/2022 10:12 AM EDT Narrative Resulting Agency Comment Spec In Lab Carlos Terry MD CHEMISTRY ORDERABLES Performing Organization Address City/[facility]/ZIP Co de Phone Number [facility] [place] [address] * (ABNORMAL) Iron and TIBC (08/21/2022 10:00 AM EDT) Pathologist [facility] Iron 25(L) 30 - 150 mcg/dL [facility] TIBC 203(L) 250 - 450 mcg/dL [facility] Iron Saturation 12(L) 20 - 50 % [facility] Blood 08/21/2022 10:0 0 AM EDT 08/21/2022 10:12 AM EDT Narrative Resulting Agency Comment Spec In Lab Carlos Terry MD CHEMISTRY ORDERABLES Performing Organization Address City/[facility]/ZIP Co de Phone Number [facility] [place] [address] * Histoplasma Antigen, Urine (08/21/2022 10:00 AM EDT) Pathologist [facility] U Histoplasma Ag (MAY) Not Detected Not Detected [facility] Comment: No Histoplasma antigen detected. False negative results may occur. ??Repeat testing on a new specimen should be considered if clinically indicated. Test Performed by: [facility] [address] [place] [id number] Bulldozer Mechanic: Rock Leone M.D. Ph.D.; CLIA# [id number] U Histo Ag Value (MAY) Not Detected ng/mL [facility] Comment: ADDITIONAL INFORMATION This test has been modified from the accounts clerk's instructions. Its performance characteristics were determined by [facility] in a manner consistent with CLIA requirements. This test has not been cleared or approved by the U.S. Food and Drug Administration. Test Performed by: [facility] [address] [place] [address] Bulldozer Mechanic: Rock Leone M.D. Ph.D.; CLIA# [id number] Urine 08/21/2022 10:0 0 AM EDT 08/21/2022 1:15 PM EDT Narrative Resulting Agency Comment Spec In Lab Carlos Terry MD LAB SEND OUT ORDERAB LES Performing Organization Address [facility]/[place] Co de Phone Number [facility] [place] [address] * POCT Glucose (08/21/2022 9:57 AM EDT) Glucose, POC 141 65 - 199 mg/dL [facility] Comment: Supplemental ranges: <140 mg/dL before meals <180 mg/dL all other times of the day Blood 08/21/2022 9:57 AM EDT 08/21/2022 9:57 AM EDT Milagros Hernandez MD POINT OF CARE TEST O RDERABLES Performing Organization Address [facility]/[place] Co de Phone Number [facility] [place] [address] * Aspergillus Antigen (08/21/2022 8:30 AM EDT) Aspergillus Ag (SEPTEMBER) <0.500 <0.5 Index [facility] Comment: ADDITIONAL INFORMATION This is a qualitative test and the resulted index value is not indicative of disease severity. ??Serial testing is recommended for patients at high risk for invasive aspergillosis. This assay was performed using the FDA-cleared [employer] Plat[employer] Aspergillus Galactomannan EIA. Test Performed by: [facility] [address] [address] Bulldozer Mechanic: Rock Leone M.D. Ph.D.; CLIA# [id number] Blood 08/21/2022 8:30 AM EDT 08/21/2022 1:15 PM EDT Narrative Resulting Agency Comment Spec In Lab Carlos Terry MD LAB SEND OUT ORDERAB LES Performing Organization Address City/[facility]/ZIP Co de Phone Number [facility] [place] [address] * POCT Glucose (08/21/2022 8:28 AM EDT) Glucose, POC 118 65 - 199 mg/dL [facility] Comment: Supplemental ranges: <140 mg/dL before meals <180 mg/dL all other times of the day Blood 08/21/2022 8:28 AM EDT 08/21/2022 8:28 AM EDT Carlos Terry MD POINT OF CARE TEST O RDERABLES Performing Organization Address [facility]/[place] Co de Phone Number [facility] [place] [address] * (ABNORMAL) Fungitell (1,0-Eyzd-V-Glucan) (08/21/2022 8:00 AM EDT) Fungitell Quantitative Value (MAY) >500(A) <60 pg/mL pg/mL [facility] Comment: Test Performed by: [facility] - [address] [address] Bulldozer Mechanic: Rock Leone M.D. Ph.D.; CLIA# [id number] Fungitell Qualitative Result (MAY) Positive (A) Negative [facility] Comment: (1, 3) Wnia-V-Lrazbc detected. A single positive result should be interpreted with caution and correlated alongside consideration of patient risk for invasive fungal disease, results of routine laboratory tests (e.g., bacterial and fungal culture, histopathologic evaluation, etc.) and radiologic findings. Repeat testing on a new sample (collected in 3-4 days) is recommended as serially positive samples are associated with a higher diagnostic odds ratio for invasive fungal infection compared to a single positive result. False positive results may occur in patients who have recently undergone hemodialysis, treatment with certain fractionated blood products (e.g., serum albumin, immunoglobulins), and/or those who have had significant exposure to glucan-containing gauze during surgery. This assay does not detect certain fungi, including Cryptococcus species, which produce very low levels of (1, 3) Hexl-V-Ijgiai (BDG) and the Mucorales (e.g., Lichthemia, Mucor and Rhizopus), which are not known to produce BDG. Additionally, the yeast phase of Blastomyces dermatitidis produces little BDG and may not be detected by this assay. ADDITIONAL INFORMATION This assay was performed using the FDA-cleared Fungitell Assay ([facility], [place], [place], [place]), a kinetic DALILA based on modification of the Limulus Amebocyte Lysate pathway. Test Performed by: [address] [address] [employer]ldozer Mechanic: Rock Leone M.D. Ph.D.; CLIA# [id number] Blood 08/21/2022 8:00 AM EDT 08/21/2022 1:15 PM EDT Narrative Resulting Agency Comment Spec In Lab Carlos Terry MD LAB SEND OUT ORDERAB LES [facility] [place] [address] * POCT Glucose (08/21/2022 7:50 AM EDT) Glucose, POC 130 65 - 199 mg/dL [facility] Comment: Supplemental ranges: <140 mg/dL before meals <180 mg/dL all other times of the day Blood 08/21/2022 7:50 AM EDT 08/21/2022 7:50 AM EDT Carlos Terry MD POINT OF CARE TEST O RDERABLES Performing Organization Address [facility] Co de Phone Number [facility] [place] [address] * POCT Glucose (08/21/2022 6:06 AM EDT) Glucose, POC 141 65 - 199 mg/dL [facility] Comment: Supplemental ranges: <140 mg/dL before meals <180 mg/dL all other times of the day Blood 08/21/2022 6:06 AM EDT 08/21/2022 6:06 AM EDT Carlos Terry MD POINT OF CARE TEST O RDERAREYMUNDO Performing Organization Address [facility] de Phone Number [facility] [place] [address] * POCT Glucose (08/21/2022 3:48 AM EDT) Glucose, POC 187 65 - 199 mg/dL [facility] Comment: Supplemental ranges: <140 mg/dL before meals <180 mg/dL all other times of the day Blood 08/21/2022 3:48 AM EDT 08/21/2022 3:48 AM EDT Carlos Terry MD POINT OF CARE TEST O RDERABLES Performing Organization Address [facility] Co de Phone Number [facility] [place] [address] * (ABNORMAL) Differential, Automated (08/21/2022 3:46 AM EDT) Neutrophil % 79.8 % [facility] Neutrophil Absolute 16.69(H) 1.70 - 6.10 x10(3)/mc L [facility] Lymph % 9.2 % [facility] Lymphocytes Abs 1.9 0.9 - 3.2 x10(3)/mc L [facility] Monocyte % 6.2 % [facility] Monocyte Abs 1.3(H) 0.3 - 0.9 x10(3)/ L [facility] Eos % 0.3 % [facility] Eosinophils Abs 0.1 0.0 - 0.4 x10(3)/[facility] Basophil % 0.2 % [facility] Baso Absolute 0.0 0.0 - 0.1 x10(3)/ L [facility] Immature Gran % 4.30 % [facility] Comment: Immature granulocytes(IG's)percentage and absolute count will include metamyelocytes, myelocytes, and promyelocytes. Blood smears from CBCs yielding IG's will be scanned manually for concordance. If this scan disagrees with the automated IG or if promyelocytes are noted, a manual differential will be performed. Immature Gran Absolute 0.89(H) 0.00 - 0.04 x10(3)/ L [facility] Blood 08/21/2022 3:46 AM EDT 08/21/2022 3:58 AM EDT Narrative Resulting Agency Comment Spec In Lab Tyler Cobb MD HEMATOLOGY ORDERABLE S [facility] [place] [address] * (ABNORMAL) Hemogram (08/21/2022 3:46 AM EDT) White Blood Cell 20.9(H) 4.0 - 9.5 x10(3)/mc L [facility] Red Blood Cell 3.68(L) 4.00 - 5.21 x10(6)/ L [facility] Hemoglobin 7.4(L) 11.7 - 15.5 g/dL [facility] Hematocrit 24.2(L) 35.7 - 45.8 % [facility] Mean Cell Volume 65.8(L) 82.6 - 94.4 fL [facility] Mean Cell Hemoglobin 20.1(L) 27.1 - 32.0 pg [facility] Mean Cell Hemoglobin Concentration 30.6(L) 31.7 - 35.0 g/dL [facility] Platelet 381(H) 145 - 357 x10(3)/mc L [facility] RDW Standard Deviation 67.2(H) 37.0 - 46.0 fL [facility] RDW coefficient of variation 30.4(H) 11.5 - 14.1 % [facility] Mean Platelet Volume 10.1 7.6 - 12.9 fL [facility] NRBC% auto 0.5 % [facility] NRBC Absolute 0.110(H) 0.000 - 0.000 x10(3)/mc L [facility] Blood 08/21/2022 3:46 AM EDT 08/21/2022 3:58 AM EDT Narrative Resulting Agency Comment Spec In Lab Tyler Cobb MD HEMATOLOGY ORDERABLE S Performing Organization Address City/State/[place] Co de Phone Number [facility] [place] [address] * (ABNORMAL) Basic Metabolic Panel (non-fasting) (08/21/2022 3:46 AM EDT) Glucose 188 65 - 199 mg/dL [facility] Comment:Diabetes: >=200 mg/d L plus symptoms Blood Urea Nitrogen 22(H) 8 - 18 mg/dL [facility] Creatinine 0.60(L) 0.70 - 1.20 mg/dL [facility] Sodium 145 135 - 145 mmol/L [facility] Potassium 3.7 3.5 - 5.0 mmol/L [facility] Comment: Please note: ??Patients with WBC >100,000 may have falsely elevated Potassium levels. ??For accurate Potassium quantification in these patients send serum separator tube (gold top) for subsequent determinations. ??Contact the Clinical Chemistry Laboratory if there are any questions. Chloride 107 98 - 107 mmol/L [facility] Carbon Dioxide 31 22 - 31 mmol/L [facility] Anion Gap 7 5 - 15 mmol/L [facility] Calcium 8.7 8.5 - 10.5 mg/dL [facility] Est Glomerular Filtration Rate 101 >=60 mL/min/1. 73 m?? [facility] Comment: This patient's estimated [...] and symptoms in addition to eGFR. Blood 08/21/2022 3:46 AM EDT 08/21/2022 3:58 AM EDT Narrative Resulting Agency Comment Spec In Lab Richard Pascal MD CHEMISTRY ORDERABLES Performing Organization Address [facility] Co de Phone Number [facility] [place] [address] * (ABNORMAL) Phosphorus (08/21/2022 3:46 AM EDT) Phosphorus 2.4(L) 2.5 - 4.5 mg/dL [facility] Blood 08/21/2022 3:46 AM EDT 08/21/2022 3:58 AM EDT Narrative Resulting Agency Comment Spec In Lab Richard Pascal MD CHEMISTRY ORDERABLES Performing Organization Address [facility] de Phone Number [facility] [place] [address] * Magnesium (08/21/2022 3:46 AM EDT) Magnesium 0.87 0.69 - 1.07 mmol/L [facility] Blood 08/21/2022 3:46 AM EDT 08/21/2022 3:58 AM EDT Narrative Resulting Agency Comment Spec In Lab Richard Pascal MD CHEMISTRY ORDERABLES Performing Organization Address City/[facility] Co de Phone Number [facility] [place] [address] * (ABNORMAL) Lipase (08/21/2022 3:46 AM EDT) Lipase 178(H) 0 - 60 unit/L [facility] Blood 08/21/2022 3:46 AM EDT 08/21/2022 3:58 AM EDT Narrative Resulting Agency Comment Spec In Lab Carlos Terry MD CHEMISTRY ORDERABLES Performing Organization Address [facility] de Phone Number [facility] [place] [address] * POCT Glucose (08/21/2022 1:57 AM EDT) Glucose, POC 167 65 - 199 mg/dL [facility] Comment: Supplemental ranges: <140 mg/dL before meals <180 mg/dL all other times of the day Blood 08/21/2022 1:57 AM EDT 08/21/2022 1:57 AM EDT Carlos Terry MD POINT OF CARE TEST O RDERABLES Performing Organization Address [facility] de Phone Number [facility] [place] [address] * (ABNORMAL) POCT Glucose (08/20/2022 11:55 PM EDT) Glucose, POC 221(H) 65 - 199 mg/dL [facility] Comment: Supplemental ranges: <140 mg/dL before meals <180 mg/dL all other times of the day Blood 08/20/2022 11:5 5 PM EDT 08/20/2022 11:55 PM EDT Carlos Terry MD POINT OF CARE TEST O RDERAREYMUNDO Performing Organization Address [facility] Co de Phone Number [facility] [place] [address] * CT Chest w Contrast (08/20/2022 11:04 PM EDT) Anatomical Region Laterality Modality Chest Computed Tomogra phy Impressions 08/21/2022 6:56 AM EDT 1. ??Multifocal lower lobe predominant consolidative opacities with additional upper lobe opacities consistent with multifocal pneumonia. Compared to the prior CT of 08/12/2022 the number and size of the opacities has decreased. Recommend follow-up imaging in 3-6 months to document complete resolution. 2. ??New small, sub-1 cm early cavitation of multiple opacities predominantly within the posterior left upper lobe and left lower lobe. 3. ??New curvilinear splenic lesions could represent infarct versus late arterial phase splenic arterial opacification. Thank you for letting us participate in the care of this patient. ??If you are a health care provider and have any questions regarding this report, please contact the number below. ??For patients who have questions please contact the health acute care physician that requested your imaging first. ? Narrative 08/21/2022 6:56 AM EDT EXAMINATION: CT CHEST W CONTRAST CLINICAL HISTORY: Pneumonia, unresolved fever of unknown origin, previous bilateral opacities on cxr, r/o infection TECHNIQUE: Helical CT of the chest after the intravenous administration of contrast, 110 cc of Omnipaque 350 was administered. Thin-section reconstructions as well as coronal and sagittal reformatted images were generated. COMPARISON: Chest radiograph 08/19/2022. CT chest 08/12/2022 FINDINGS: Pulmonary parenchyma: There are patchy and consolidated airspace opacities within the right lower lobe and left lower lobe and to a lesser extent the posterior aspect of the left upper lobe and right upper lobe. These are decreased in size number and extent compared to the prior exam. Interval development of small cavitary lesions within the left lingular segment, posterior left upper lobe and left lower lobe, measuring less than 1 cm in size. Airways: Endotracheal tube tip terminates above the consuelo. Bronchial wall thickening of the bilateral lower lobes. Pleura: No pneumothorax. No pleural effusions. Lymph nodes: Prominent subcarinal and hilar lymph nodes, likely reactive. Heart and vasculature: Normal cardiac size. No pericardial effusion. Normal caliber of the thoracic aorta with widely patent arch origins. No central pulmonary emboli. Right PICC tip terminates at the superior cavoatrial junction. Other mediastinal structures: Enteric tube courses below the diaphragm with tip not included the [id number]. There is some wall thickening of the esophagus. No pneumomediastinum. No mediastinal collections. Lower neck and chest wall soft tissues: No significant findings. Upper abdomen: Curvilinear low-attenuation lesions within the spleen (axial series 4 image 228 and image 264 are new. Unchanged 4 mm low-attenuation lesion in the right liver dome, probable cyst. Partially visualized dilated gallbladder. Enteric tubing is seen within the first portion the duodenum, not fully included in the [id number]. Skeletal structures: No acute osseous findings. No suspicious osseous lesions. Procedure Note Jagdeep Lee MD - 08/21/2022 EXAMINATION: CT CHEST W CONTRAST CLINICAL HISTORY: Pneumonia, unresolved fever of unknown origin, previous bilateral opacities on cxr, r/oinfection TECHNIQUE: Helical CT of the chest after the intravenous administrationof contrast, 110 cc of Omnipaque 350 was administered. Thin-sectionreconstructions as well as coronal and sagittal reformatted images were generated. COMPARISON: Chest radiograph 08/19/2022. CT chest 08/12/2022 FINDINGS: Pulmonary parenchyma: There are patchy and consolidated airspaceopacities within the right lower lobe and left lower lobe and to a lesser extentthe posterior aspect of the left upper lobe and right upper lobe. These are decreased in size number and extent compared to the prior exam. Interval development of small cavitary lesions within the left lingularsegment, posterior left upper lobe and left lower lobe, measuring less than 1 cm insize. Airways: Endotracheal tube tip terminates above the consuelo. Bronchialwall thickening of the bilateral lower lobes. Pleura: No pneumothorax. No pleural effusions. Lymph nodes: Prominent subcarinal and hilar lymph nodes, likelyreactive. Heart and vasculature: Normal cardiac size. No pericardial effusion.Normal caliber of the thoracic aorta with widely patent arch origins. Nocentral pulmonary emboli. Right PICC tip terminates at the superior cavoatrialjunction. Other mediastinal structures: Enteric tube courses below the diaphragmwith tip not included the [id number]. There is some wall thickening of theesophagus. No pneumomediastinum. No mediastinal collections. Lower neck and chest wall soft tissues: No significant findings. Upper abdomen: Curvilinear low-attenuation lesions within the spleen(axial series 4 image 228 and image 264 are new. Unchanged 4 mm low-attenuationlesion in the right liver dome, probable cyst. Partially visualized dilated gallbladder. Enteric tubing is seen within the first portion the duodenum,not fully included in the [id number]. Skeletal structures: No acute osseous findings. No suspicious osseouslesions. IMPRESSION 1. Multifocal lower lobe predominant consolidative opacities withadditional upper lobe opacities consistent with multifocal pneumonia. Compared to theprior CT of 08/12/2022 the number and size of the opacities has decreased.Recommend follow-up imaging in 3-6 months to document complete resolution. 2. New small, sub-1 cm early cavitation of multiple opacitiespredominantly within the posterior left upper lobe and left lower lobe. 3. New curvilinear splenic lesions could represent infarct versus latearterial phase splenic arterial opacification. Thank you for letting us participate in the care of this patient. If youare a health care provider and have any questions regarding this report,please contact the number below. For patients who have questions please contactthe health acute care physician that requested your imaging first. Carlos Terry MD IMG CT ORDERABLES * CT Hip w Contrast Left (08/20/2022 11:04 PM EDT) Anatomical Region Laterality Modality Hip Left Computed Tomogra phy Impressions 08/21/2022 9:34 AM EDT 1. ??Uncomplicated left femoral neck ORIF with unchanged postoperative alignment. 2. ??Moderate skin thickening and subcutaneous stranding about the lateral left hip with lateral left thigh intramuscular edema and fascial thickening. These findings are nonspecific and may be seen in the routine postoperative setting. Underlying soft tissue infection with infectious or inflammatory myositis may also have this appearance. Correlation with physical examination, clinical symptoms, and laboratory findings is recommended. 3. ??2.3 x 1.6 x 1.8 cm focus of more coalescent fluid attenuation centered in the subcutaneous fat of the posterolateral thigh roughly at the level of the proximal femoral fixation screw heads. There is no rim-enhancing to suggest a mature, organized abscess at this time. However, this finding could represent phlegmon in appropriate clinical context, or it could represent a postsurgical collection, the contents of which may be sterile or infected. 4. ??There is a rectal tube in place. However, there remains a large stool ball in the rectum with free fluid versus coalescent edema on both the anterior and posterior margins of the distended rectum. In appropriate clinical context, these findings could represent proctocolitis or stercoral colitis. I have personally reviewed the image(s) and the resident's interpretation and agree with the findings, Aicha Chowdhury MD at 08/21/2022 9:34 AM Thank you for letting us participate in the care of this patient. ??If you are a health care provider and have any questions regarding this report, please contact the number below. ??For patients who have questions please contact the health acute care physician that requested your imaging first. ? Electronically signed by: Aicha Chowdhury MD, [facility] ([phone]), at 08/21/2022 9:34 AM Narrative 08/21/2022 9:34 AM EDT EXAMINATION: CT HIP W CONTRAST LEFT CLINICAL HISTORY: Soft tissue infection suspected, hip, xray done fever of unknown origin, recent hip trauma, r/o infection (per history entered by ordering provider).. TECHNIQUE: CT of the left hip performed after administration of 110 mL Omnipaque 350. Coronal and sagittal reformats were obtained. COMPARISON: CT left left lower extremity 08/08/22. Hip radiograph 09/06/2022, intraprocedural radiograph 08-30. FINDINGS: Bones/joints: Status post left femoral neck fracture ORIF. Hardware is intact with no associated lucency. Femoral neck fracture lines remain faintly visible. Left hip alignment is maintained. No additional fractures. No osseous destruction or osseous erosion. There is marginal osteophyte formation of the left hip, though the left hip joint space is preserved. Unchanged appearance of the pubic symphysis, without widening. Musculature/subcutaneous: Moderate subcutaneous stranding and cutaneous thickening about the lateral left hip, with a focus of more coalescent fluid attenuation measuring 2.3 x 1.6 x 1.8 cm (series 9, image 251 and series 15, image 46), without rim enhancement to suggest an organized abscess. This finding is located roughly at the level of the proximal femoral fixation screw heads. Additionally, there is mild fascial thickening and intramuscular edema about the lateral mid left thigh (example series 8 image 82). Diffuse fatty atrophy, most pronounced about the hamstrings and gluteus asya. No loculated fluid collection or subcutaneous air. Non-musculoskeletal structures: Mcrae catheter and rectal tube in situ. Moderate presacral coalescent edema versus free fluid and in the rectovesical space (series 15, image 241). There is also a large stool ball within the rectum. Normal major vessel enhancement. Procedure Note Aicha Chowdhury MD - 08/21/2022 EXAMINATION: CT HIP W CONTRAST LEFT CLINICAL HISTORY: Soft tissue infection suspected, hip, xray done fever of unknown origin, recent hip trauma, r/o infection (per historyentered by ordering provider).. TECHNIQUE: CT of the left hip performed after administration of 110 mL [id number]. Coronal and sagittal reformats were obtained. COMPARISON: CT left left lower extremity 08/08/22. Hip radiograph 09/06/2022,intraprocedural radiograph 08-30. FINDINGS: Bones/joints: Status post left femoral neck fracture ORIF. Hardware isintact with no associated lucency. Femoral neck fracture lines remain faintlyvisible. Left hip alignment is maintained. No additional fractures. No osseous destruction or osseous erosion. There is marginal osteophyte formation of the left hip, though the lefthip joint space is preserved. Unchanged appearance of the pubic symphysis,without widening. Musculature/subcutaneous: Moderate subcutaneous stranding and cutaneous thickening about the lateral left hip, with a focus of more coalescentfluid attenuation measuring 2.3 x 1.6 x 1.8 cm (series 9, image 251 and [id number], image 46), without rim enhancement to suggest an organized abscess. Thisfinding is located roughly at the level of the proximal femoral fixation screwheads. Additionally, there is mild fascial thickening and intramuscular edemaabout the lateral mid left thigh (example series 8 image 82). Diffuse fatty atrophy,most pronounced about the hamstrings and gluteus asya. No loculated fluid collection or subcutaneous air. Non-musculoskeletal structures: Cmrae catheter and rectal tube in situ. Moderate presacral coalescentedema versus free fluid and in the rectovesical space (series 15, image 241).There is also a large stool ball within the rectum. Normal major vesselenhancement. IMPRESSION 1. Uncomplicated left femoral neck ORIF with unchanged postoperativealignment. 2. Moderate skin thickening and subcutaneous stranding about the lateralleft hip with lateral left thigh intramuscular edema and fascial thickening.These findings are nonspecific and may be seen in the routine postoperativesetting. Underlying soft tissue infection with infectious or inflammatory myositismay also have this appearance. Correlation with physical examination,clinical symptoms, and laboratory findings is recommended. 3. 2.3 x 1.6 x 1.8 cm focus of more coalescent fluid attenuation centeredin the subcutaneous fat of the posterolateral thigh roughly at the level ofthe proximal femoral fixation screw heads. There is no rim-enhancing tosuggest a mature, organized abscess at this time. However, this finding couldrepresent phlegmon in appropriate clinical context, or it could represent apostsurgical collection, the contents of which may be sterile or infected. 4. There is a rectal tube in place. However, there remains a large stoolball in the rectum with free fluid versus coalescent edema on both the anteriorand posterior margins of the distended rectum. In appropriate clinicalcontext, these findings could represent proctocolitis or stercoral colitis. I have personally reviewed the image(s) and the resident's interpretationand agree with the findings, Aicha Chowdhury MD at 08/21/2022 9:34 AM Thank you for letting us participate in the care of this patient. If youare a health care provider and have any questions regarding this report,please contact the number below. For patients who have questions please contactthe health acute care physician that requested your imaging first. Electronically signed by: Aicha Chowdhury MD, [facility]([phone]), at 08/21/2022 9:34 AM Carlos Terry MD IMG CT ORDERABLES * POCT Glucose (08/20/2022 9:54 PM EDT) Glucose, POC 195 65 - 199 mg/dL [facility] Comment: Supplemental ranges: <140 mg/dL before meals <180 mg/dL all other times of the day Blood 08/20/2022 9:54 PM EDT 08/20/2022 9:54 PM EDT Carlos Terry MD POINT OF CARE TEST O RDERABLES Performing Organization Address City/[facility]/ZIP Co de Phone Number [facility] [place] [address] * POCT Glucose (08/20/2022 8:46 PM EDT) Glucose, POC 118 65 - 199 mg/dL [facility] Comment: Supplemental ranges: <140 mg/dL before meals <180 mg/dL all other times of the day Blood 08/20/2022 8:46 PM EDT 08/20/2022 8:46 PM EDT Carlos Terry MD POINT OF CARE TEST O RDERAREYMUNDO [facility] [place] [address] * POCT Glucose (08/20/2022 6:21 PM EDT) Glucose, POC 164 65 - 199 mg/dL [facility] Comment: Supplemental ranges: <140 mg/dL before meals <180 mg/dL all other times of the day Blood 08/20/2022 6:21 PM EDT 08/20/2022 6:21 PM EDT Carlos Terry MD POINT OF CARE TEST O RDERAREYMUNDO Performing Organization Address City/[facility]/ZIP Co de Phone Number [facility] [place] [address] * POCT Glucose (08/20/2022 4:27 PM EDT) Glucose, POC 180 65 - 199 mg/dL [facility] Comment: Supplemental ranges: <140 mg/dL before meals <180 mg/dL all other times of the day Blood 08/20/2022 4:27 PM EDT 08/20/2022 4:27 PM EDT Carlos Terry MD POINT OF CARE TEST O HUGHERAREYMUNDO Performing Organization Address [facility] Co de Phone Number [facility] [place] [address] * POCT Glucose (08/20/2022 2:11 PM EDT) Glucose, POC 150 65 - 199 mg/dL [facility] Comment: Supplemental ranges: <140 mg/dL before meals <180 mg/dL all other times of the day Blood 08/20/2022 2:11 PM EDT 08/20/2022 2:11 PM EDT Carlos Terry MD POINT OF CARE TEST O RDERAREYMUNDO Performing Organization Address [facility] Co de Phone Number [facility] [place] [address] * (ABNORMAL) Hepatic Function Panel (08/20/2022 2:00 PM EDT) Protein, Total 5.6(L) 6.1 - 8.0 g/dL [facility] Albumin 2.5(L) 3.2 - 5.2 g/dL [facility] Aspartate Aminotransferase 39(H) 0 - 30 unit/L [facility] Alanine Aminotransferase 20 0 - 30 unit/L [facility] Alkaline Phosphatase 213(H) 35 - 105 unit/L [facility] Bilirubin, Total <0.2(L) 0.2 - 1.3 mg/dL [facility] Bilirubin, Direct 0.1 0.0 - 0.3 mg/dL [facility] Blood 08/20/2022 2:00 PM EDT 08/20/2022 2:20 PM EDT Narrative Resulting Agency Comment Spec In Lab Carlos Terry MD CHEMISTRY ORDERABLES Performing Organization Address [facility] Co de Phone Number [facility] [place] [address] * TSH [place] (08/20/2022 2:00 PM EDT) Thyroid Stimulating Hormone 1.90 0.27 - 4.20 mcIU/mL [facility] Comment: Reference Interval (mcIU/mL): Females: ??First Trimester: 0.23-3.88 ??Second Trimester: 0.22-3.90 ??Third Trimester: 0.44-4.66 Blood 08/20/2022 2:00 PM EDT 08/20/2022 2:20 PM EDT Narrative Resulting Agency Comment Spec In Lab Carlos Terry MD CHEMISTRY ORDERABLES Performing Organization Address [facility] Co de Phone Number [facility] [place] [address] * POCT Glucose (08/20/2022 12:13 PM EDT) Glucose, POC 163 65 - 199 mg/dL [facility] Comment: Supplemental ranges: <140 mg/dL before meals <180 mg/dL all other times of the day Blood 08/20/2022 12:1 3 PM EDT 08/20/2022 12:13 PM EDT Carlos Terry MD POINT OF CARE TEST O RDERABLES Performing Organization Address City/[facility] Co de Phone Number [facility] [place] [address] * POCT Glucose (08/20/2022 10:05 AM EDT) Glucose, POC 196 65 - 199 mg/dL [facility] Comment: Supplemental ranges: <140 mg/dL before meals <180 mg/dL all other times of the day Blood 08/20/2022 10:0 5 AM EDT 08/20/2022 10:05 AM EDT Carlos Terry MD POINT OF CARE TEST O RDERABLES [facility] [place] [address] * (ABNORMAL) POCT Glucose (08/20/2022 7:26 AM EDT) Glucose, POC 233(H) 65 - 199 mg/dL [facility] Comment: Supplemental ranges: <140 mg/dL before meals <180 mg/dL all other times of the day Blood 08/20/2022 7:26 AM EDT 08/20/2022 7:26 AM EDT Carlos Terry MD POINT OF CARE TEST O RDERABLES [facility] [place] [address] * POCT Glucose (08/20/2022 6:31 AM EDT) Glucose, POC 190 65 - 199 mg/dL [facility] Comment: Supplemental ranges: <140 mg/dL before meals <180 mg/dL all other times of the day Blood 08/20/2022 6:31 AM EDT 08/20/2022 6:31 AM EDT Carlos Terry MD POINT OF CARE TEST O RDERABLES [facility] [place] [address] * (ABNORMAL) BLOOD GAS 2 ARTERIAL (08/20/2022 5:41 AM EDT) pH, Arterial 7.56(H) 7.35 - 7.45 [facility] PCO2, Arterial 31(L) 35 - 45 mmHg [facility] PO2, Arterial 92 85 - 104 mmHg [facility] Bicarbonate, Arterial 27.3(H) 20.0 - 26.0 mmol/L [facility] Base Excess, Arterial 5.0(H) -3.0 - 3.0 mmol/L [facility] Hgb Blood Gas 8.5(L) 11.7 - 15.5 g/dL [facility] Oxyhemoglobin, Arterial 96.0 94.0 - 97.0 % [facility] Carboxyhemoglob in, Arterial 0.3 % [facility] Comment: Nonsmokers: 0.5-1.5% COHB Smokers: Variable, but usually less than 10% Toxic: 20-30% COHB Lethal: Greater than 60% COHB Methemoglobin, Arterial 0.9 <=1.5 % [facility] Na Whole Blood 141 135 - 145 mmol/L [facility] K Whole Blood 3.6 3.5 - 5.0 mmol/L [facility] Comment: Please note: Patients with WBC >100,000 may have falsely elevated Potassium levels. Contact the Clinical Chemistry Laboratory if there are any questions. ICa Whole Blood 1.15 1.15 - 1.33 mmol/L [facility] Comment: Note: ??Total bilirubin higher than 20 mg/dL may lead to falsely low ionized calcium. CL Whole Blood 110(H) 98 - 107 mmol/L [facility] Gluc Whole Bld 160 65 - 199 mg/dL [facility] Comment:Diabetes: >=200 mg/d L plus symptoms. Lactate WB 1.6 0.5 - 2.2 mmol/L [facility] FIO2 Art 30 % [facility] PF Ratio Art 307 [facility] Blood 08/20/2022 5:41 AM EDT 08/20/2022 5:41 AM EDT Carlos Terry MD POINT OF CARE TEST O RDERABLES [facility] [place] [address] * POCT Glucose (08/20/2022 4:29 AM EDT) Glucose, POC 114 65 - 199 mg/dL [facility] Comment: Supplemental ranges: <140 mg/dL before meals <180 mg/dL all other times of the day Blood 08/20/2022 4:29 AM EDT 08/20/2022 4:29 AM EDT Carlos Terry MD POINT OF CARE TEST O RDERABLES [facility] [place] [address] * POCT Glucose (08/20/2022 3:53 AM EDT) Glucose, POC 114 65 - 199 mg/dL [facility] Comment: Supplemental ranges: <140 mg/dL before meals <180 mg/dL all other times of the day Blood 08/20/2022 3:53 AM EDT 08/20/2022 3:53 AM EDT Carlos Terry MD POINT OF CARE TEST O RDERABLES [facility] [place] [address] * POCT Glucose (08/20/2022 2:05 AM EDT) Glucose, POC 140 65 - 199 mg/dL [facility] Comment: Supplemental ranges: <140 mg/dL before meals <180 mg/dL all other times of the day Blood 08/20/2022 2:05 AM EDT 08/20/2022 2:05 AM EDT Carlos Terry MD POINT OF CARE TEST O RDERABLES [facility] [place] [address] * Scan, Peripheral Blood (08/20/2022 12:30 AM EDT) Plat estimate Normal [facility] RBC Morphology Abnormal [facility] Macrocyte 1-5 /HPF [facility] Microcyte gtr than 10 /HPF [facility] Hypochromia Moderate [facility] Polychromasia Present >5/HPF [facility] Ovalocytes 1-5 /HPF [facility] Target Cells 1-5 /HPF [facility] Blood 08/20/2022 12:3 0 AM EDT 08/20/2022 12:32 AM EDT Narrative Resulting Agency Comment Spec In Lab Tyler Cobb MD HEMATOLOGY ORDERABLE S [facility] [place] [address] * (ABNORMAL) Differential, Automated (08/20/2022 12:30 AM EDT) Neutrophil % 77.6 % [facility] Neutrophil Absolute 21.72(H) 1.70 - 6.10 x10(3)/mc L [facility] Lymph % 8.3 % [facility] Lymphocytes Abs 2.3 0.9 - 3.2 x10(3)/mc L [facility] Monocyte % 6.5 % [facility] Monocyte Abs 1.8(H) 0.3 - 0.9 x10(3)/mc L [facility] Eos % 0.2 % [facility] Eosinophils Abs 0.0 0.0 - 0.4 x10(3)/mc L [facility] Basophil % 0.3 % [facility] Baso Absolute 0.1 0.0 - 0.1 x10(3)/mc L [facility] Immature Gran % 7.10 % [facility] Comment: Immature granulocytes(IG's)percentage and absolute count will include metamyelocytes, myelocytes, and promyelocytes. Blood smears from CBCs yielding IG's will be scanned manually for concordance. If this scan disagrees with the automated IG or if promyelocytes are noted, a manual differential will be performed. Immature Gran Absolute 2.00(H) 0.00 - 0.04 x10(3)/mc L [facility] Blood 08/20/2022 12:3 0 AM EDT 08/20/2022 12:32 AM EDT Narrative Resulting Agency Comment Spec In Lab Tyler Cobb MD HEMATOLOGY ORDERABLE S [facility] [place] [address] * (ABNORMAL) Hemogram (08/20/2022 12:30 AM EDT) White Blood Cell 28.0(H) 4.0 - 9.5 x10(3)/ L [facility] Red Blood Cell 4.08 4.00 - 5.21 x10(6)/mc L [facility] Hemoglobin 8.2(L) 11.7 - 15.5 g/dL [facility] Hematocrit 26.4(L) 35.7 - 45.8 % [facility] Mean Cell Volume 64.7(L) 82.6 - 94.4 fL [facility] Mean Cell Hemoglobin 20.1(L) 27.1 - 32.0 pg [facility] Mean Cell Hemoglobin Concentration 31.1(L) 31.7 - 35.0 g/dL [facility] Platelet 351 145 - 357 x10(3)/mc L [facility] RDW Standard Deviation 63.9(H) 37.0 - 46.0 fL [facility] RDW coefficient of variation 29.8(H) 11.5 - 14.1 % [facility] Mean Platelet Volume 10.1 7.6 - 12.9 fL [facility] NRBC% auto 0.8 % [facility] NRBC Absolute 0.230(H) 0.000 - 0.000 x10(3)/mc L [facility] Blood 08/20/2022 12:3 0 AM EDT 08/20/2022 12:32 AM EDT Narrative Resulting Agency Comment Spec In Lab Tyler Cobb MD HEMATOLOGY ORDERABLE S Performing Organization Address City/[facility]/ZIP Co de Phone Number [facility] [place] [address] * (ABNORMAL) Basic Metabolic Panel (non-fasting) (08/20/2022 12:30 AM EDT) Glucose 188 65 - 199 mg/dL [facility] Comment:Diabetes: >=200 mg/d L plus symptoms Blood Urea Nitrogen 21(H) 8 - 18 mg/dL [facility] Creatinine 0.55(L) 0.70 - 1.20 mg/dL [facility] Sodium 144 135 - 145 mmol/L [facility] Potassium 4.1 3.5 - 5.0 mmol/L [facility] Comment: Please note: ??Patients with WBC >100,000 may have falsely elevated Potassium levels. ??For accurate Potassium quantification in these patients send serum separator tube (gold top) for subsequent determinations. ??Contact the Clinical Chemistry Laboratory if there are any questions. Chloride 107 98 - 107 mmol/L [facility] Carbon Dioxide 28 22 - 31 mmol/L [facility] Anion Gap 9 5 - 15 mmol/L [facility] Calcium 8.5 8.5 - 10.5 mg/dL [facility] Est Glomerular Filtration Rate 104 >=60 mL/min/1. 73 m?? [facility] Comment: This patient's estimated GFR was [...] and symptoms in addition to eGFR. Blood 08/20/2022 12:3 0 AM EDT 08/20/2022 12:32 AM EDT Narrative Resulting Agency Comment Spec In Lab Richard Pascal MD CHEMISTRY ORDERABLES Performing Organization Address [facility]/ZIP Co de Phone Number [facility] [place] [address] * (ABNORMAL) Phosphorus (08/20/2022 12:30 AM EDT) Phosphorus 1.7(L) 2.5 - 4.5 mg/dL [facility] Blood 08/20/2022 12:3 0 AM EDT 08/20/2022 12:32 AM EDT Narrative Resulting Agency Comment Spec In Lab Richard Pascal MD CHEMISTRY ORDERABLES Performing Organization Address City/[facility]/[place] Co de Phone Number [facility] [place] [address] * Magnesium (08/20/2022 12:30 AM EDT) Magnesium 0.94 0.69 - 1.07 mmol/L [facility] Blood 08/20/2022 12:3 0 AM EDT 08/20/2022 12:32 AM EDT Narrative Resulting Agency Comment Spec In Lab Richard Pascal MD CHEMISTRY ORDERABLES Performing Organization Address [facility]/[place] Co de Phone Number [facility] [place] [address] * POCT Glucose (08/20/2022 12:27 AM EDT) Glucose, POC 177 65 - 199 mg/dL [facility] Comment: Supplemental ranges: <140 mg/dL before meals <180 mg/dL all other times of the day Blood 08/20/2022 12:2 7 AM EDT 08/20/2022 12:27 AM EDT Carlos Terry MD POINT OF CARE TEST O RDERABLES Performing Organization Address [facility] Co de Phone Number [facility] [place] [address] * (ABNORMAL) POCT Glucose (08/19/2022 11:34 PM EDT) Glucose, POC 200(H) 65 - 199 mg/dL [facility] Comment: Supplemental ranges: <140 mg/dL before meals <180 mg/dL all other times of the day Blood 08/19/2022 11:3 4 PM EDT 08/19/2022 11:34 PM EDT Carlos Terry MD POINT OF CARE TEST O GABRIELLA Performing Organization Address [facility] Co de Phone Number [facility] [place] [address] * (ABNORMAL) POCT Glucose (08/19/2022 10:32 PM EDT) [facility] Signature Glucose, POC 200(H) 65 - 199 mg/dL [facility] Comment: Supplemental ranges: <140 mg/dL before meals <180 mg/dL all other times of the day Blood 08/19/2022 10:3 2 PM EDT 08/19/2022 10:32 PM EDT Carlos Terry MD POINT OF CARE TEST Chepe QUIROZ Performing Organization Address [facility] Co de Phone Number [facility] [place] [address] * MRI Brain wo Contrast (08/19/2022 10:15 PM EDT) Anatomical Region Laterality Modality Head Magnetic Resonan ce Impressions 08/20/2022 3:34 AM EDT No acute infarction, mass or mass effect. Thank you for letting us participate in the care of this patient. ??If you are a health care provider and have any questions regarding this report, please contact the number below. ??For patients who have questions please contact the health acute care physician that requested your imaging first. ? Narrative 08/20/2022 3:34 AM EDT EXAMINATION: MRI BRAIN WO CONTRAST CLINICAL HISTORY: Mental status change, unknown cause; Not waking up off sedation Mental status change, unknown cause; Not waking up off sedation TECHNIQUE: MRI of the brain performed without intravenous contrast administration. COMPARISON: Head CT 08/18/2022 FINDINGS: Ventricles are normal in size. Basal cisterns are patent. No mass or mass effect. No abnormal restricted diffusion. No evidence of acute cortical infarction. Small areas of T2 prolongation in the periventricular white matter, likely sequela of small vessel disease. No susceptibility related signal loss to suggest microhemorrhage. Normal intracranial intravascular flow voids. The orbits are unremarkable. No abnormal signal in the paranasal sinuses. Trace fluid in the inferior mastoid air cells bilaterally. Partial visualized enteric tube. There is hyperostosis frontalis interna. Normal marrow space signal. Procedure Note Jagdepe Lee MD - 08/20/2022 EXAMINATION: MRI BRAIN WO CONTRAST CLINICAL HISTORY: Mental status change, unknown cause; Not waking up off sedation Mental status change, unknown cause; Not waking up off sedation TECHNIQUE: MRI of the brain performed without intravenous contrast administration. COMPARISON: Head CT 08/18/2022 FINDINGS: Ventricles are normal in size. Basal cisterns are patent. No mass ormass effect. No abnormal restricted diffusion. No evidence of acute cortical infarction. Small areas of T2 prolongation in the periventricular whitematter, likely sequela of small vessel disease. No susceptibility related signalloss to suggest microhemorrhage. Normal intracranial intravascular flow voids.The orbits are unremarkable. No abnormal signal in the paranasal sinuses.Trace fluid in the inferior mastoid air cells bilaterally. Partial visualizedenteric tube. There is hyperostosis frontalis interna. Normal marrow spacesignal. IMPRESSION No acute infarction, mass or mass effect. Thank you for letting us participate in the care of this patient. If youare a health care provider and have any questions regarding this report,please contact the number below. For patients who have questions please contactthe health acute care physician that requested your imaging first. Carlos Terry MD IMG MRI ORDERABLES * POCT Glucose (08/19/2022 7:08 PM EDT) Glucose, POC 165 65 - 199 mg/dL [facility] Comment: Supplemental ranges: <140 mg/dL before meals <180 mg/dL all other times of the day Blood 08/19/2022 7:08 PM EDT 08/19/2022 7:08 PM EDT Carlos Terry MD POINT OF CARE TEST O RDERABLES [facility] [place] [id number] * POCT Glucose (08/19/2022 6:03 PM EDT) Glucose, POC 172 65 - 199 mg/dL [facility] Comment: Supplemental ranges: <140 mg/dL before meals <180 mg/dL all other times of the day Blood 08/19/2022 6:03 PM EDT 08/19/2022 6:03 PM EDT Carlos Terry MD POINT OF CARE TEST O RDERABLES [facility] [place] [address] * Blood culture (08/19/2022 5:20 PM EDT) Blood Culture No growth at 5 days. [facility] Blood 08/19/2022 5:20 PM EDT 08/19/2022 6:53 PM EDT Comment:RA Narrative Resulting Agency Comment Spec In Lab Carlos Terry MD MICROBIOLOGY - BLOOD ORDERABLES [facility] [place] [address] * POCT Glucose (08/19/2022 5:08 PM EDT) Glucose, POC 154 65 - 199 mg/dL [facility] Comment: Supplemental ranges: <140 mg/dL before meals <180 mg/dL all other times of the day Blood 08/19/2022 5:08 PM EDT 08/19/2022 5:08 PM EDT Carlos Terry MD POINT OF CARE TEST O RDERABLES [facility] [place] [address] * Place BEDSIDE PICC Line: Contact Vascular Access Page [phone] Is PICC procedure required PRIOR to patients discharge? No (08/19/2022 4:51 PM EDT) Narrative Carlos Arnold RN - 08/19/2022 4:51 PM EDT Carlos Arnold RN ? 08/19/2022 ??4:55 PM PICC/Midline Insertion Procedure Note Indications: Medication Administration This insertion was not to replace a malfunctioning catheter. This insertion was not due to a suspected line-associated infection. Location of Procedure: [facility] Risks and Benefits: The risks and benefits of this procedure were reviewed and informed consent was obtained obtained. Time Out: Prior to the start of the procedure, the patient's identity, intended procedure, site/side, correct patient positioning and presence of the site allen was confirmed as applicable. The medical history and chart were reviewed to rule out potential contraindications to the planned procedure. Hand Hygiene: The cad manager did perform hand hygiene prior to line insertion. Catheter type: PICC Lot number: [id number] Procedure Technique: Skin was prepped with chlorhexidine. Skin preparation agent was completely dry at the time of first skin puncture. The following barrier precaution methods were used:large sterile drape, maske/eye shield, large sterile gown, sterile gloves and cap. 3 ml of 1% Lidocaine was used for skin wheal. Ultrasound was used for guidance. ??Radiographic contrast agent was not injected for vein identification. Procedure Details: Order received for catheter placement. A 5 Fr. double lumen Bard Power catheter was placed into the right basilic vein over a 0.018 inch guidewire using modified seldinger technique and fluoroscopy. Arm circumference was 32 cm at 2 cm above the insertion site. Final catheter length (with trimming): 33 cm Internal: 33 cm External: 0 cm Tip in SVC per Gab The line was not placed over a guidewire. Post Procedure: Diagnosis: Shock Blood return noted on aspiration of line after placement confirmed. 5 mls of normal saline infused free flowing to gravity via PICC after insertion. Sterile dressing applied: CHG Impregnated Tegaderm. Findings: The patient did tolerate the procedure well. No Complications. Procedure Comments: Placed at bedside CARLOS ARNOLD RN 08/19/2022 Carlos Terry MD PROCEDURE/MINOR SURG ICAL ORDERABLES * XR Chest for Verifying Vascular Access PICC Placement At Bedside (08/19/2022 4:36 PM EDT) Anatomical Region Laterality Modality Digital Radiogra phy Impressions 08/19/2022 4:39 PM EDT PICC tip is in the superior vena cava above the right atrium. Thank you for letting us participate in the care of this patient. ??If you are a health care provider and have any questions regarding this report, please contact the number below. ??For patients who have questions please contact the health acute care physician that requested your imaging first. ? Electronically signed by: Alan De Guzman MD, [facility] ([phone]), at 08/19/2022 4:39 PM Narrative 08/19/2022 4:39 PM EDT EXAMINATION: XR CHEST FOR VERIFYING VASCULAR ACCESS PICC PLACEMENT AT BEDSIDE CLINICAL HISTORY: verify PICC placement TECHNIQUE: AP view COMPARISON: Chest x-ray same date at 12:30 FINDINGS: Right arm approach PICC line with tip in the superior right atrium. Support apparatus otherwise unchanged. Patchy bilateral airspace opacities are unchanged from earlier today. No new pulmonary pathology. Procedure Note Alan De Guzman III, MD - 08/19/2022 EXAMINATION: XR CHEST FOR VERIFYING VASCULAR ACCESS PICC PLACEMENT ATBEDSIDE CLINICAL HISTORY: verify PICC placement TECHNIQUE: AP view COMPARISON: Chest x-ray same date at 12:30 FINDINGS: Right arm approach PICC line with tip in the superior right atrium.Support apparatus otherwise unchanged. Patchy bilateral airspace opacities are unchanged from earlier today. Nonew pulmonary pathology. IMPRESSION PICC tip is in the superior vena cava above the right atrium. Thank you for letting us participate in the care of this patient. If youare a health care provider and have any questions regarding this report,please contact the number below. For patients who have questions please contactthe health acute care physician that requested your imaging first. Electronically signed by: Alan De Guzman MD, [facility]([phone]), at 08/19/2022 4:39 PM Carlos Terry MD IMG DX ORDERABLES * POCT Glucose (08/19/2022 3:15 PM EDT) Glucose, POC 177 65 - 199 mg/dL [facility] Comment: Supplemental ranges: <140 mg/dL before meals <180 mg/dL all other times of the day Blood 08/19/2022 3:15 PM EDT 08/19/2022 3:15 PM EDT Carlos Terry MD POINT OF CARE TEST O RDERABLES [facility] [place] [address] * Lower Respiratory Culture Sputum Induced (08/19/2022 2:51 PM EDT) Lower Respiratory Culture Rare mixed bacterial morphotypes suggestive of normal upper respiratory wiley [facility] Gram Stain Many Neutrophils seen Few squamous epithelial cells seen No microorganisms seen. [facility] Sputum Induced 08/19/2022 2: 51 PM EDT 08/19/2022 3:47 PM EDT Narrative Resulting Agency Comment Spec In Lab Carlos Terry MD MICROBIOLOGY - GENER AL ORDERABLES Performing Organization Address City/[facility]/ZIP Co de Phone Number [facility] [place] [address] * Lactate, whole blood, send to lab ([facility]/CG) (08/19/2022 2:45 PM EDT) Lactate WB 1.6 0.5 - 2.2 mmol/L [facility] Blood 08/19/2022 2:45 PM EDT 08/19/2022 2:58 PM EDT Narrative Resulting Agency Comment Spec In Lab Carlos Terry MD CHEMISTRY ORDERABLES Performing Organization Address [facility]/ZIP Co de Phone Number [facility] [place] [address] * (ABNORMAL) Urinalysis Microscopic Exam (08/19/2022 2:30 PM EDT) Pathologist [facility] RBC, Urine 1 0 - 4 /HPF [facility] WBC, Urine 3 0 - 5 /HPF [facility] Bacteria, Urine Rare(A) None /HPF [facility] Budding Yeast, Urine Occasiona l(A) None /HPF [facility] Comment: Interpret results with caution, microscopic results are from suboptimal specimen volume Hyphae Yeast, Urine Occasiona l(A) None /HPF [facility] Squamous Epithelial Cells Raw Data, Urine 1 <=4 /HPF [facility] Hyaline Casts, Urine 2 0 - 2 /LPF [facility] Indwelling Catheter Urine 08/19/2022 2:30 PM EDT 08/19/2022 3:12 PM EDT Narrative Resulting Agency Comment Spec In Lab Neva Tomlin MD URINE ORDERABLES Performing Organization Address City/[facility]/ZIP Co de Phone Number [facility] [place] [address] * (ABNORMAL) Urinalysis with reflex Culture (08/19/2022 2:30 PM EDT) Glucose, Urine Dipstick 100(A) Negative mg/dL [facility] Protein, Urine Dipstick 30(A) Negative mg/dL [facility] Bilirubin, Urine Dipstick Negative Negative mg/dL [facility] Comment: Clinical correlation required for positive Urine Bilirubin results as false positive may occur with some drugs and drug related products. If a false positive is suspected a serum total bilirubin should be considered if clinically indicated. Urobilinogen, Urine Dipstick Normal Normal mg/dL [facility] pH, Urn (dipstick) 5.5 5.0 - 8.0 [facility] Blood, Urine Dipstick Large(A) Negative mg/dL [facility] Ketone, Urine Dipstick Negative Negative mg/dL [facility] Nitrite, Urine Dipstick Negative Negative [facility] Leukocytes, Urine Dipstick Trace(A) Negative mcL [facility] LABORATORY Appearance, Urine Dipstick Clear Clear [facility] Specific [place] Pos Urine Automated 1.018 1.005 - 1.030 [facility] Color, Urine Dipstick Yellow Yellow [facility] Reflex to Culture No [facility] Indwelling Catheter Urine 08/19/2022 2:30 PM EDT 08/19/2022 3:12 PM EDT Narrative Resulting Agency Comment Spec In Lab Carlos Terry MD URINE ORDERABLES Performing Organization Address [facility] Co de Phone Number [facility] [place] [address] * Phosphorus (08/19/2022 1:45 PM EDT) Phosphorus 2.9 2.5 - 4.5 mg/dL [facility] Blood Venous Draw / Unknown 08/19/2022 1:45 PM EDT 08/19/2022 2:05 PM EDT Narrative Resulting Agency Comment Spec In Lab Neva Tomlin MD CHEMISTRY ORDERABLES Performing Organization Address [facility] Co de Phone Number [facility] [place] [address] * (ABNORMAL) Basic Metabolic Panel (non-fasting) (08/19/2022 1:45 PM EDT) Glucose 224(H) 65 - 199 mg/dL [facility] Comment:Diabetes: >=200 mg/d L plus symptoms Blood Urea Nitrogen 20(H) 8 - 18 mg/dL [facility] Creatinine 0.59(L) 0.70 - 1.20 mg/dL [facility] Sodium 145 135 - 145 mmol/L [facility] Potassium 4.1 3.5 - 5.0 mmol/L [facility] Comment: Please note: ??Patients with WBC >100,000 may have falsely elevated Potassium levels. ??For accurate Potassium quantification in these patients send serum separator tube (gold top) for subsequent determinations. ??Contact the Clinical Chemistry Laboratory if there are any questions. Chloride 106 98 - 107 mmol/L [facility] Carbon Dioxide 29 22 - 31 mmol/L [facility] Anion Gap 10 5 - 15 mmol/L [facility] Calcium 8.6 8.5 - 10.5 mg/dL [facility] Est Glomerular Filtration Rate 102 >=60 mL/min/1. 73 m?? [facility] Comment: This patient's estimated GFR was [...] and symptoms in addition to eGFR. Blood 08/19/2022 1:45 PM EDT 08/19/2022 1:58 PM EDT Narrative Resulting Agency Comment Spec In Lab Carlos Terry MD CHEMISTRY ORDERABLES [facility] [place] [address] * Blood culture (08/19/2022 1:30 PM EDT) Blood Culture No growth at 5 days. [facility] Blood 08/19/2022 1:30 PM EDT 08/19/2022 2:15 PM EDT Comment:L Hand Narrative Resulting Agency Comment Spec In Lab Carlos Terry MD MICROBIOLOGY - BLOOD ORDERABLES [facility] [place] [address] * XR Chest One View (08/19/2022 12:30 PM EDT) Anatomical Region Laterality Modality Chest N/A Digital Radiogra phy Impressions 08/19/2022 3:14 PM EDT 1. ??Increased bibasilar airspace opacities compared to radiograph 08/16/2022, concerning for an infectious/inflammatory process. A component of edema not excluded. 2. ??Overall decreased pulmonary edema. I have personally reviewed the image(s) and the resident's interpretation and agree with the findings, Alan De Guzman MD at 08/19/2022 3:14 PM Thank you for letting us participate in the care of this patient. ??If you are a health care provider and have any questions regarding this report, please contact the number below. ??For patients who have questions please contact the health acute care physician that requested your imaging first. ? Electronically signed by: Alan De Guzman MD, [facility] ([phone]), at 08/19/2022 3:14 PM Narrative 08/19/2022 3:14 PM EDT EXAMINATION: XR CHEST ONE VIEW CLINICAL HISTORY: febrile, altered, leukocytosis TECHNIQUE: 1 view of the chest ; AP portable 20 degrees upright COMPARISON: Chest radiograph 08/16/2022 FINDINGS: ET tube tip measures 3.0 cm above consuelo. Enteric catheter descends below the diaphragm and below the [id number]. Interval removal of right IJ approach PA catheter and sheath. Round external device projects over the upper mediastinum. Patchy bibasilar airspace opacities partially obscuring the hemidiaphragms, increased when compared to 08/16/2022. Overall improved aeration of the upper lungs. No pneumothorax. Small bilateral layering pleural effusions. The cardiomediastinal silhouette and pulmonary vascular markings are within normal limits. Procedure Note Alan De Guzman III, MD - 08/19/2022 EXAMINATION: XR CHEST ONE VIEW CLINICAL HISTORY: febrile, altered, leukocytosis TECHNIQUE: 1 view of the chest ; AP portable 20 degrees upright COMPARISON: Chest radiograph 08/16/2022 FINDINGS: ET tube tip measures 3.0 cm above consuelo. Enteric catheter descends below the diaphragm and below [id number]. Interval removal of right IJ approach PA catheter and sheath. Round external device projects over the upper mediastinum. Patchy bibasilar airspace opacities partially obscuring thehemidiaphragms, increased when compared to 08/16/2022. Overall improved aeration of theupper lungs. No pneumothorax. Small bilateral layering pleural effusions. The cardiomediastinal silhouette and pulmonary vascular markings are withinnormal limits. IMPRESSION 1. Increased bibasilar airspace opacities compared to radiograph08/16/2022, concerning for an infectious/inflammatory process. A component of edemanot excluded. 2. Overall decreased pulmonary edema. I have personally reviewed the image(s) and the resident's interpretationand agree with the findings, Alan De Guzman MD at 08/19/2022 3:14 PM Thank you for letting us participate in the care of this patient. If youare a health care provider and have any questions regarding this report,please contact the number below. For patients who have questions please contactthe health acute care physician that requested your imaging first. Electronically signed by: Alan De Guzman MD, [facility]([phone]), at 08/19/2022 3:14 PM Carlos Terry MD IMG DX ORDERABLES * POCT Glucose (08/19/2022 11:35 AM EDT) Glucose, POC 186 65 - 199 mg/dL [facility] Comment: Supplemental ranges: <140 mg/dL before meals <180 mg/dL all other times of the day Blood 08/19/2022 11:3 5 AM EDT 08/19/2022 11:35 AM EDT Carlos Terry MD POINT OF CARE TEST O RDERABLES [facility] [place] [address] * ECHO LMTD W CONTRAST W LMTD SPEC DOPP COLOR DOPP (08/19/2022 11:30 AM EDT) EF 32 HEARTLAB SYSTEM Anatomical Region Laterality Modality Cardiac Other 08/19/2022 10:4 7 AM EDT Narrative 08/19/2022 12:04 PM EDT ? Echocardiogram Report Name: TERRY IRVINGAnne Orlando ? Study Date: 08/19/2022 10:47 AMBP: 110/57 mmHg ? Patient Location: [facility] CV24 A HR: 110 : 1960 ? Height: 152 cm ? Account: [id number] Age: 62 yrs ? Weight: 73 kg Gender: Female ?BSA: 1.7 m2 Ordering Physician: CARLOS TERRY Referring Physician: NIURKA AYALA Performed By: Thu Croft RDCS Reason For Study: Shock Interpreting Fellow: Hang Moreno. Exam Location: [facility]. Interpretation Summary -Left ventricular systolic function is [...] 08/15/22 there has been no significant change. Procedure Limited - 27781. Doppler - 12142. Color Doppler - 89361. Image enhancement Optison was used for left ventricular opacification. Suboptimal quality. Left Ventricle Left ventricle is of normal size. Wall thickness is normal. There is no left ventricular outflow tract obstruction. Left ventricular systolic function is moderately reduced. The left ventricular ejection fraction is 32% by Dahl's biplane. There are segmental wall motion abnormalities. There is no left ventricular thrombus. Right Ventricle The right ventricle is of normal size. Right ventricular systolic function is normal. The right ventricular apex is akinetic. Left Atrium The left atrium is normal. No abnormality of the interatrial septum is identified. Right Atrium The right atrium is normal. Aortic Valve The aortic valve is tricuspid. The aortic valve is mildly thickened. There is no aortic stenosis. There is no aortic regurgitation. Mitral Valve The mitral valve leaflets are thickened. There is no mitral stenosis. There is trace mitral regurgitation. Tricuspid Valve The tricuspid valve is structurally normal. There is trace tricuspid regurgitation. Pulmonic Valve The pulmonic valve appears to be structurally normal. There is trace pulmonic valve regurgitation. Great Arteries The aortic root is of normal size. No abnormalities are identified. The ascending aorta is not well visualized. Venous Inferior vena cava is normal in size. Patient is mechanically ventilated. Pericardium/Pleural There is no pericardial effusion. Hemodynamics The peak right ventricular systolic pressure is 21 mmHg. Plus RA presssure. Left ventricular diastolic function is indeterminate. Left ventricular filling pressure is normal. Ejection Fraction ?2D Measurements ? Volumes EF(MOD-bp): 31.8 % ?IVSd: 1.0 cm ? LAV(MOD- bp) Indexed: ?LVIDd: 4.0 cm ?LVIDs: 2.6 cm ?18.7 ml/m2 ?LVPWd: 1.1 cm ?RA A4Cs_phl: 10.7 cm2 ?LV mass(C)d: 141.4 grams ? EDV (MOD-bp) Index: 61.6 ? ESV (MOD-bp) Index: 42.1 ?LV mass(C)dI: 83.3 grams/m2 ?SV(LVOT): 47.0 ml ?Ao root diam: 2.9 cm ?Ao root diam index: 1.7 ?SI(LVOT): 27.7 ml/m2 ?LVOT diam: 2.0 cm ?TAPSE_phl: 1.7 cm Doppler TR max gurvinder: 229.5 cm/sec LV V1 VTI: 15.2 cm Ao V2 VTI: 19.9 cm Ao Max: 138.9 cm/sec Ao valve max: 7.7 mmHg Ao valve mean: 3.7 mmHg MV E max gurvinder: 60.9 cm/sec MV A max gurvinder: 104.1 cm/sec MV E/A: 0.59 MV dec time: 0.06 sec Lat Peak E' Gurvinder: 16.1 cm/sec E/ e' (lat): 3.8 Med Peak E' Gurvinder: 5.6 cm/sec E/e' (med): 10.8 E/e' Average: 7.3 KAREL(I,D): 2.4 cm2 Dimensionless index Aov: 0.76 I ?WMSI = 2.25 ? % Normal = 38 ?Segments ??Size X - Cannot ?2 - ?4 - ?1-2 ? small Interpret ?1 - Normal ?? Hypokinetic 3 - Akinetic Dyskinetic ?? 3-5 ? moderate 5 - ? 6-14 ?large Aneurysmal ?15-16 ?? diffuse Procedure Note Yojana Dunbar MD - 08/19/2022 Echocardiogram Report Name: ISHAN IRVING Study Date: 0:47 AMBP: 110/57 mmHg Patient Location: [id number] HR: 110 : 1960 Height: 152 cm Account: [id number] Age: 62 yrs Weight: 73 kg Gender: Female BSA: 1.7 m2 Ordering Physician: CARLOS TERRY Referring Physician: NIURKA AYALA Performed By: Thu Croft RDCS Reason For Study: Shock Interpreting Fellow: Hang Moreno. Exam Location: [facility]. Interpretation Summary -Left ventricular systolic function is moderately reduced. The leftventricular ejection fraction is 32% by Dahl's biplane. The apical portions of theLV remain akinetic with preservation of the basal segments. There is noapical thrombus seen with echo enhancing agent. -RV systolic function is preserved. -There is no significant valve disease. - Compared to a study done on 08/15/22 there has been no significantchange. Procedure Limited - 36004. Doppler - 87658. Color Doppler - 97929. Image enhancementOptison was used for left ventricular opacification. Suboptimal quality. Left Ventricle Left ventricle is of normal size. Wall thickness is normal. There is noleft ventricular outflow tract obstruction. Left ventricular systolic functionis moderately reduced. The left ventricular ejection fraction is 32% bySimpson's biplane. There are segmental wall motion abnormalities. There is no left ventricular thrombus. Right Ventricle The right ventricle is of normal size. Right ventricular systolic functionis normal. The right ventricular apex is akinetic. Left Atrium The left atrium is normal. No abnormality of the interatrial septum isidentified. Right Atrium The right atrium is normal. Aortic Valve The aortic valve is tricuspid. The aortic valve is mildly thickened. Thereis no aortic stenosis. There is no aortic regurgitation. Mitral Valve The mitral valve leaflets are thickened. There is no mitral stenosis.There is trace mitral regurgitation. Tricuspid Valve The tricuspid valve is structurally normal. There is trace tricuspid regurgitation. Pulmonic Valve The pulmonic valve appears to be structurally normal. There is tracepulmonic valve regurgitation. Great Arteries The aortic root is of normal size. No abnormalities are identified. Theascending aorta is not well visualized. Venous Inferior vena cava is normal in size. Patient is mechanicallyventilated. Pericardium/Pleural There is no pericardial effusion. Hemodynamics The peak right ventricular systolic pressure is 21 mmHg. Plus RApresssure. Left ventricular diastolic function is indeterminate. Left ventricular fillingpressure is normal. Ejection Fraction 2D Measurements Volumes EF(MOD-bp): 31.8 % IVSd: 1.0 cm LAV(MOD-bp)Indexed: LVIDd: 4.0 cm LVIDs: 2.6 cm 18.7 ml/m2 LVPWd: 1.1 cm RA A4Cs_phl: 10.7cm2 LV mass(C)d: 141.4 grams EDV (MOD-bp)Index: 61.6 ESV (MOD-bp)Index: 42.1 LV mass(C)dI: 83.3 grams/m2 SV(LVOT): 47.0ml Ao root diam: 2.9 cm Ao root diam index: 1.7 SI(LVOT): 27.7ml/m2 LVOT diam: 2.0 cm TAPSE_phl: 1.7 cm Doppler TR max gurvinder: 229.5 cm/sec LV V1 VTI: 15.2 cm Ao V2 VTI: 19.9 cm Ao Max: 138.9 cm/sec Ao valve max: 7.7 mmHg Ao valve mean: 3.7 mmHg MV E max gurvinder: 60.9 cm/sec MV A max gurvinder: 104.1 cm/sec MV E/A: 0.59 MV dec time: 0.06 sec Lat Peak E' Gurvinder: 16.1 cm/sec E/ e' (lat): 3.8 Med Peak E' Gurvinder: 5.6 cm/sec E/e' (med): 10.8 E/e' Average: 7.3 KAREL(I,D): 2.4 cm2 Dimensionless index Aov: 0.76 I WMSI = 2.25 % Normal = 38 SegmentsSize X - Cannot 2 - 4 - 1-2small Interpret 1 - Normal Hypokinetic 3 - Akinetic Dyskinetic 3-5moderate 5 - 6-14large Aneurysmal 15-16diffuse Carlos Terry MD ECHO ORDERABLES * POCT Glucose (08/19/2022 9:49 AM EDT) Glucose, POC 189 65 - 199 mg/dL [facility] Comment: Supplemental ranges: <140 mg/dL before meals <180 mg/dL all other times of the day Blood 08/19/2022 9:49 AM EDT 08/19/2022 9:49 AM EDT Carlos Terry MD POINT OF CARE TEST O RDERABLES [facility] [place] [address] * (ABNORMAL) POCT Glucose (08/19/2022 7:57 AM EDT) Glucose, POC 229(H) 65 - 199 mg/dL [facility] Comment: Supplemental ranges: <140 mg/dL before meals <180 mg/dL all other times of the day Blood 08/19/2022 7:57 AM EDT 08/19/2022 7:57 AM EDT Carlos Terry MD POINT OF CARE TEST O RDERABLES [facility] [place] [address] * (ABNORMAL) POCT Glucose (08/19/2022 6:58 AM EDT) Glucose, POC 215(H) 65 - 199 mg/dL [facility] Comment: Supplemental ranges: <140 mg/dL before meals <180 mg/dL all other times of the day Blood 08/19/2022 6:58 AM EDT 08/19/2022 6:58 AM EDT Carlos Terry MD POINT OF CARE TEST O GABRIELLA Performing Organization Address City/[facility]/[place] Co de Phone Number [facility] [place] [address] * (ABNORMAL) BLOOD GAS 2 ARTERIAL (08/19/2022 5:07 AM EDT) pH, Arterial 7.54(H) 7.35 - 7.45 [facility] PCO2, Arterial 31(L) 35 - 45 mmHg [facility] PO2, Arterial 73(L) 85 - 104 mmHg [facility] Bicarbonate, Arterial 25.7 20.0 - 26.0 mmol/L [facility] Base Excess, Arterial 3.1(H) -3.0 - 3.0 mmol/L [facility] Hgb Blood Gas 9.3(L) 11.7 - 15.5 g/dL [facility] Oxyhemoglobin, Arterial 94.1 94.0 - 97.0 % [facility] Carboxyhemoglob in, Arterial 0.2 % [facility] Comment: Nonsmokers: 0.5-1.5% COHB Smokers: Variable, but usually less than 10% Toxic: 20-30% COHB Lethal: Greater than 60% COHB Methemoglobin, Arterial 0.9 <=1.5 % [facility] Na Whole Blood 142 135 - 145 mmol/L [facility] K Whole Blood 3.7 3.5 - 5.0 mmol/L [facility] Comment: Please note: Patients with WBC >100,000 may have falsely elevated Potassium levels. Contact the Clinical Chemistry Laboratory if there are any questions. ICa Whole Blood 1.14(L) 1.15 - 1.33 mmol/L [facility] Comment: Note: ??Total bilirubin higher than 20 mg/dL may lead to falsely low ionized calcium. CL Whole Blood 111(H) 98 - 107 mmol/L [facility] Gluc Whole Bld 178 65 - 199 mg/dL [facility] Comment:Diabetes: >=200 mg/d L plus symptoms. Lactate WB 1.2 0.5 - 2.2 mmol/L [facility] FIO2 Art 30 % [facility] PF Ratio Art 243 [facility] Blood 08/19/2022 5:07 AM EDT 08/19/2022 5:07 AM EDT Carlos Terry MD POINT OF CARE TEST O GABRIELLA Performing Organization Address City/[facility]/ZIP Co de Phone Number [facility] [place] [address] * POCT Glucose (08/19/2022 3:08 AM EDT) Glucose, POC 176 65 - 199 mg/dL [facility] Comment: Supplemental ranges: <140 mg/dL before meals <180 mg/dL all other times of the day Blood 08/19/2022 3:08 AM EDT 08/19/2022 3:08 AM EDT Carlos Terry MD POINT OF CARE TEST O GABRIELLA [facility] [place] [address] * CK (08/19/2022 1:20 AM EDT) Creatine Kinase 32 0 - 160 unit/L [facility] Blood Venous Draw / Unknown 08/19/2022 1:20 AM EDT 08/19/2022 1:26 AM EDT Narrative Resulting Agency Comment Spec In Lab Neva Tomlin MD [place] [address] * (ABNORMAL) Differential, Automated (08/19/2022 1:20 AM EDT) Neutrophil % 68.0 % [facility] Neutrophil Absolute 19.24(H) 1.70 - 6.10 x10(3)/mc L [facility] Lymph % 10.4 % [facility] Lymphocytes Abs 2.9 0.9 - 3.2 x10(3)/mc L [facility] Monocyte % 8.1 % [facility] Monocyte Abs 2.3(H) 0.3 - 0.9 x10(3)/mc L [facility] Eos % 0.4 % [facility] Eosinophils Abs 0.1 0.0 - 0.4 x10(3)/mc L [facility] Basophil % 0.6 % [facility] Baso Absolute 0.2(H) 0.0 - 0.1 x10(3)/mc L [facility] Immature Gran % 12.50 % [facility] Comment: Immature granulocytes(IG's)percentage and absolute count will include metamyelocytes, myelocytes, and promyelocytes. Blood smears from CBCs yielding IG's will be scanned manually for concordance. If this scan disagrees with the automated IG or if promyelocytes are noted, a manual differential will be performed. Immature Gran Absolute 3.52(H) 0.00 - 0.04 x10(3)/mc L [facility] Blood 08/19/2022 1:20 AM EDT 08/19/2022 1:25 AM EDT Narrative Resulting Agency Comment Spec In Lab Tyler Cobb MD HEMATOLOGY ORDERABLE S [facility] [place] [address] * (ABNORMAL) Hemogram (08/19/2022 1:20 AM EDT) White Blood Cell 28.3(H) 4.0 - 9.5 x10(3)/mc L [facility] Red Blood Cell 4.35 4.00 - 5.21 x10(6)/mc L [facility] Hemoglobin 8.7(L) 11.7 - 15.5 g/dL [facility] Hematocrit 27.9(L) 35.7 - 45.8 % [facility] Mean Cell Volume 64.1(L) 82.6 - 94.4 fL [facility] Mean Cell Hemoglobin 20.0(L) 27.1 - 32.0 pg [facility] Mean Cell Hemoglobin Concentration 31.2(L) 31.7 - 35.0 g/dL [facility] Platelet 301 145 - 357 x10(3)/mc L [facility] RDW Standard Deviation 63.6(H) 37.0 - 46.0 fL [facility] RDW coefficient of variation 29.2(H) 11.5 - 14.1 % [facility] Mean Platelet Volume Not Measured 7.6 - 12.9 fL [facility] NRBC% auto 1.0 % [facility] NRBC Absolute 0.290(H) 0.000 - 0.000 x10(3)/ L [facility] Blood 08/19/2022 1:20 AM EDT 08/19/2022 1:25 AM EDT Narrative Resulting Agency Comment Spec In Lab Tyler Cobb MD HEMATOLOGY ORDERABLE S Performing Organization Address City/State/[place] Co de Phone Number [facility] [place] [address] * (ABNORMAL) Basic Metabolic Panel (non-fasting) (08/19/2022 1:20 AM EDT) Glucose 187 65 - 199 mg/dL [facility] Comment:Diabetes: >=200 mg/d L plus symptoms Blood Urea Nitrogen 18 8 - 18 mg/dL [facility] Creatinine 0.50(L) 0.70 - 1.20 mg/dL [facility] Sodium 142 135 - 145 mmol/L [facility] Potassium 3.8 3.5 - 5.0 mmol/L [facility] Comment: Please note: ??Patients with WBC >100,000 may have falsely elevated Potassium levels. ??For accurate Potassium quantification in these patients send serum separator tube (gold top) for subsequent determinations. ??Contact the Clinical Chemistry Laboratory if there are any questions. Chloride 108(H) 98 - 107 mmol/L [facility] Carbon Dioxide 25 22 - 31 mmol/L [facility] Anion Gap 9 5 - 15 mmol/L [facility] Calcium 8.4(L) 8.5 - 10.5 mg/dL [facility] Est Glomerular Filtration Rate 106 >=60 mL/min/1. 73 m?? [facility] Comment: This patient's estimated GFR was [...] and symptoms in addition to eGFR. Blood 08/19/2022 1:20 AM EDT 08/19/2022 1:25 AM EDT Narrative Resulting Agency Comment Spec In Lab Richard Pascal MD CHEMISTRY ORDERABLES Performing Organization Address City/[facility]/[place] Co de Phone Number [facility] [place] [address] * (ABNORMAL) Phosphorus (08/19/2022 1:20 AM EDT) Phosphorus 1.4(Critic al) 2.5 - 4.5 mg/dL [facility] Comment:Called by: CORTNEY, Read back by: DIOMEDES LOCKHART, Date/Time:08/19/22 02:18. Blood 08/19/2022 1:20 AM EDT 08/19/2022 1:25 AM EDT Narrative Resulting Agency Comment Spec In Lab Richard Pascal MD CHEMISTRY ORDERABLES [facility] [place] [address] * Magnesium (08/19/2022 1:20 AM EDT) Magnesium 0.83 0.69 - 1.07 mmol/L [facility] Blood 08/19/2022 1:20 AM EDT 08/19/2022 1:25 AM EDT Narrative Resulting Agency Comment Spec In Lab Richard Pascal MD CHEMISTRY ORDERABLES Performing Organization Address City/[facility]/[place] Co de Phone Number [facility] [place] [address] * POCT Glucose (08/19/2022 1:19 AM EDT) Glucose, POC 169 65 - 199 mg/dL [facility] Comment: Supplemental ranges: <140 mg/dL before meals <180 mg/dL all other times of the day Blood 08/19/2022 1:19 AM EDT 08/19/2022 1:19 AM EDT Carlos Terry MD POINT OF CARE TEST O RDERABLES Performing Organization Address [facility]/[place] Co de Phone Number [facility] [place] [address] * POCT Glucose (08/18/2022 11:03 PM EDT) Glucose, POC 171 65 - 199 mg/dL [facility] Comment: Supplemental ranges: <140 mg/dL before meals <180 mg/dL all other times of the day Blood 08/18/2022 11:0 3 PM EDT 08/18/2022 11:03 PM EDT Carlos Terry MD POINT OF CARE TEST O RDERABLES Performing Organization Address City/[facility]/ZIP Co de Phone Number [facility] [place] [address] * POCT Glucose (08/18/2022 9:05 PM EDT) Glucose, POC 148 65 - 199 mg/dL [facility] Comment: Supplemental ranges: <140 mg/dL before meals <180 mg/dL all other times of the day Blood 08/18/2022 9:05 PM EDT 08/18/2022 9:05 PM EDT Carlos Terry MD POINT OF CARE TEST O GABRIELLA [facility] [place] [address] * POCT Glucose (08/18/2022 7:51 PM EDT) Glucose, POC 144 65 - 199 mg/dL [facility] Comment: Supplemental ranges: <140 mg/dL before meals <180 mg/dL all other times of the day Blood 08/18/2022 7:51 PM EDT 08/18/2022 7:51 PM EDT Carlos Terry MD POINT OF CARE TEST O GABRIELLA Performing Organization Address [facility] Co de Phone Number [facility] [place] [address] * POCT Glucose (08/18/2022 6:31 PM EDT) Glucose, POC 175 65 - 199 mg/dL [facility] Comment: Supplemental ranges: <140 mg/dL before meals <180 mg/dL all other times of the day Blood 08/18/2022 6:31 PM EDT 08/18/2022 6:31 PM EDT Carlos Terry MD POINT OF CARE TEST O HUGHERAREYMUNDO [facility] [place] [address] * POCT Glucose (08/18/2022 4:56 PM EDT) Glucose, POC 166 65 - 199 mg/dL [facility] Comment: Supplemental ranges: <140 mg/dL before meals <180 mg/dL all other times of the day Blood 08/18/2022 4:56 PM EDT 08/18/2022 4:56 PM EDT Carlos Terry MD POINT OF CARE TEST O GABRIELLA Performing Organization Address [facility] Co de Phone Number [facility] [place] [address] * (ABNORMAL) POCT Glucose (08/18/2022 3:35 PM EDT) [facility] Glucose, POC 207(H) 65 - 199 mg/dL [facility] Comment: Supplemental ranges: <140 mg/dL before meals <180 mg/dL all other times of the day Blood 08/18/2022 3:35 PM EDT 08/18/2022 3:35 PM EDT Carlos Terry MD POINT OF CARE TEST O GABRIELLA Performing Organization Address [facility] Co de Phone Number [facility] [place] [address] * CT Head wo Contrast (Generic) (08/18/2022 3:14 PM EDT) Anatomical Region Laterality Modality Head Computed Tomogra phy Impressions 08/18/2022 3:18 PM EDT No acute intracranial process. Thank you for letting us participate in the care of this patient. ??If you are a health care provider and have any questions regarding this report, please contact the number below. ??For patients who have questions please contact the health acute care physician that requested your imaging first. ? Electronically signed by: Antonio Jordan MD, [facility] ([phone]), at 08/18/2022 3:18 PM Narrative 08/18/2022 3:18 PM EDT EXAMINATION: CT HEAD WO CONTRAST (GENERIC) CLINICAL HISTORY: Mental status change, unknown cause TECHNIQUE: CT Head was performed without contrast COMPARISON: 08/16/2022 FINDINGS: The calvarium is remarkable for hyperostosis frontalis interna, normal variation. Enteric tube extends to the nose. ET tube is seen in the oral cavity. No fractures are identified. No aggressive bone lesions are seen. Mild sinusitis is noted in the sphenoid air cells. Age related atrophy is noted. Ventricular caliber is normal. No intracranial mass, hemorrhage or infarct is identified. No hydrocephalus. Procedure Note Antonio Jordan MD - 08/18/2022 EXAMINATION: CT HEAD WO CONTRAST (GENERIC) CLINICAL HISTORY: Mental status change, unknown cause TECHNIQUE: CT Head was performed without contrast COMPARISON: 08/16/2022 FINDINGS: The calvarium is remarkable for hyperostosis frontalis interna,normal variation. Enteric tube extends to the nose. ET tube is seen in the oral cavity. No fractures are identified. No aggressive bone lesions are seen. Mildsinusitis is noted in the sphenoid air cells. Age related atrophy is noted.Ventricular caliber is normal. No intracranial mass, hemorrhage or infarct isidentified. No hydrocephalus. IMPRESSION No acute intracranial process. Thank you for letting us participate in the care of this patient. If youare a health care provider and have any questions regarding this report,please contact the number below. For patients who have questions please contactthe health acute care physician that requested your imaging first. Carlos Terry MD IMG CT ORDERABLES * POCT Glucose (08/18/2022 2:38 PM EDT) Glucose, POC 194 65 - 199 mg/dL [facility] Comment: Supplemental ranges: <140 mg/dL before meals <180 mg/dL all other times of the day Blood 08/18/2022 2:38 PM EDT 08/18/2022 2:38 PM EDT Carlos Terry MD POINT OF CARE TEST O RDERABLES [facility] [place] [address] * EEG ROUTINE (08/18/2022 2:19 PM EDT) Narrative Tyree Martin MD - 08/18/2022 2:19 PM EDT Tyree Martin MD ? 08/18/2022 ??8:46 PM [facility] Department of Neurology Inpatient Routine EEG Report Name of the Patient: ??Ishan Irving Date of : ?1960 Date of Service: ?08/18/2022 Referring physician: ?Neva Tomlin MD Reading Resident/Fellow: ??Cedric Gilbert MD Reading Attending: Dr. Martin Routine EEG start time: 11:23 on 08/18/22 Routine EEG end time: 12:25 on 08/18/22 Total time recorded: 62 minutes Indication for EEG: Encephalopathy/Altered mental status BRIEF HISTORY: Ishan Irving is a 62 y.o. female with h/o bipolar, DM, EtOH, esophagitis, who presented to [facility] 3 days ago after being found unresponsive at home. ??Patient found to have likely pneumonia +/- aspiration, newly reduced EF. ??Patient not on any sedation, not waking up. MEDICATIONS: -Depakote 500 mg x1 dose -Fentanyl gtt stopped 08/17 -Propofol gtt stopped 08/17 PRIOR EEG(s): -N/A METHODS: A 21 channel digitized electroencephalogram was performed in the [facility] Clinical Neurophysiology Laboratory. The 10/20 international system of electrode placement was used and bipolar and referential electrode montages were recorded. ??In addition to EEG the patient was monitored for EKG and lateral/vertical eye movements. Video was recorded during the session. SENIOR SOLUTIONS CONSULTANT'S REPORT: Performed by: Glendy MARCUS Patient was not sleep deprived. Sleep was not attained. Photic stimulation was not performed. Hyperventilation was not performed. Effort was not adequate. Movement and other artifact was not significant. Comments: ELECTROENCEPHALOGRAPHER'S REPORT Background: The background was continuous and spontaneously reactive composed of normal voltage, 10 to 60 ??V. There was a poorly organized anterior to posterior gradient with faster frequencies anteriorly. Background consisted of mostly delta slowing admixed with occasional theta, without a posterior dominant rhythm. Focal Asymmetries: There were no focal asymmetries. Sleep: Sleep was not seen distinctively from wakefulness. Interictal Activity: Frequent generalized periodic discharges, bifrontal predominant with biphasic vs triphasic morphology, 60-80 uV, occurring every several seconds at times. Ictal Activity: No electrographic seizures were recorded. Patient Events: -N/A Provocative Maneuvers: Hyperventilation and photic stimulation were not performed. EKG: Single-lead EKG was low amplitude and cardiac rhythm was not well interpreted in the current study. Technical Limitations: None INTERPRETATION: This 62-minute routine EEG was abnormal due to the presence of: 1.) Frequent generalized periodic discharges with biphasic/triphasic morphology 2.) Moderate diffuse continuous slowing CLINICAL CORRELATION: The overall pattern of this EEG suggests a moderate global cerebral dysfunction of nonspecific etiology. No epileptogenic patterns or discharges were identified. Generalized periodic discharges are a non-specific marker of encephalopathy and may be seen in toxo-metabolic and infectious etiologies. ?? Cedric Gilbert MD 08/18/2022 Attending Attestation I reviewed the EEG with the resident/fellow, made appropriate changes to the EEG report as needed, and I agree with the final interpretation as written. Tyree Martin MD [facility] Department of Neurology Carlos Terry MD NEUROLOGY ORDERABLES * POCT Glucose (08/18/2022 1:53 PM EDT) Glucose, POC 174 65 - 199 mg/dL [facility] Comment: Supplemental ranges: <140 mg/dL before meals <180 mg/dL all other times of the day Blood 08/18/2022 1:53 PM EDT 08/18/2022 1:53 PM EDT Carlos Terry MD POINT OF CARE TEST O GABRIELLA Performing Organization Address [facility] Co de Phone Number [facility] [place] [address] * POCT Glucose (08/18/2022 12:30 PM EDT) Glucose, POC 129 65 - 199 mg/dL [facility] Comment: Supplemental ranges: <140 mg/dL before meals <180 mg/dL all other times of the day Blood 08/18/2022 12:3 0 PM EDT 08/18/2022 12:30 PM EDT Carlos Terry MD POINT OF CARE TEST O GABRIELLA Performing Organization Address [facility] Co de Phone Number [facility] [place] [address] * POCT Glucose (08/18/2022 11:12 AM EDT) Glucose, POC 113 65 - 199 mg/dL [facility] Comment: Supplemental ranges: <140 mg/dL before meals <180 mg/dL all other times of the day Blood 08/18/2022 11:1 2 AM EDT 08/18/2022 11:12 AM EDT Carlos Terry MD POINT OF CARE TEST O GABRIELLA Performing Organization Address [facility] Co de Phone Number [facility] [place] [address] * POCT Glucose (08/18/2022 10:37 AM EDT) Glucose, POC 121 65 - 199 mg/dL [facility] Comment: Supplemental ranges: <140 mg/dL before meals <180 mg/dL all other times of the day Blood 08/18/2022 10:3 7 AM EDT 08/18/2022 10:37 AM EDT Carlos Terry MD POINT OF CARE TEST O RDERABLES Performing Organization Address [facility] Co de Phone Number [facility] [place] [address] * Legionella Urinary Antigen (08/18/2022 10:13 AM EDT) Legionella Urinary Antigen Negative Negative [facility] Comment: A negative Legionella Urinary Antigen by EIA suggests no recent or current infection with L. pneumophila Serogroup 1. Antigen may not be present in urine in early infection, and the level of antigen present in the urine may be below the detection limit of the test. Sensitivity: 95% Specificity 95%. Urine 08/18/2022 10:1 3 AM EDT 08/18/2022 10:20 PM EDT Narrative Resulting Agency Comment Spec In Lab Carlos Terry MD MICROBIOLOGY - GENER AL ORDERABLES Performing Organization Address [facility] Co de Phone Number [facility] [place] [address] * POCT Glucose (08/18/2022 7:36 AM EDT) Glucose, POC 175 65 - 199 mg/dL [facility] Comment: Supplemental ranges: <140 mg/dL before meals <180 mg/dL all other times of the day Blood 08/18/2022 7:36 AM EDT 08/18/2022 7:36 AM EDT Carlos Terry MD POINT OF CARE TEST O RDERABLES Performing Organization Address [facility] Co de Phone Number [facility] [place] [address] * (ABNORMAL) BLOOD GAS 2 ARTERIAL (08/18/2022 6:15 AM EDT) pH, Arterial 7.51(H) 7.35 - 7.45 [facility] PCO2, Arterial 30(L) 35 - 45 mmHg [facility] PO2, Arterial 62(L) 85 - 104 mmHg [facility] Bicarbonate, Arterial 23.2 20.0 - 26.0 mmol/L [facility] Base Excess, Arterial 0.2 -3.0 - 3.0 mmol/L [facility] Hgb Blood Gas 10.2(L) 11.7 - 15.5 g/dL [facility] Oxyhemoglobin, Arterial 91.5(L) 94.0 - 97.0 % [facility] Carboxyhemoglob in, Arterial 0.5 % [facility] Comment: Nonsmokers: 0.5-1.5% COHB Smokers: Variable, but usually less than 10% Toxic: 20-30% COHB Lethal: Greater than 60% COHB Methemoglobin, Arterial 0.7 <=1.5 % [facility] Na Whole Blood 136 135 - 145 mmol/L [facility] K Whole Blood 3.7 3.5 - 5.0 mmol/L [facility] Comment: Please note: Patients with WBC >100,000 may have falsely elevated Potassium levels. Contact the Clinical Chemistry Laboratory if there are any questions. ICa Whole Blood 1.16 1.15 - 1.33 mmol/L [facility] Comment: Note: ??Total bilirubin higher than 20 mg/dL may lead to falsely low ionized calcium. CL Whole Blood 104 98 - 107 mmol/L [facility] Gluc Whole Bld 219(H) 65 - 199 mg/dL [facility] Comment:Diabetes: >=200 mg/d L plus symptoms. Lactate WB 1.6 0.5 - 2.2 mmol/L [facility] FIO2 Art 30 % [facility] PF Ratio Art 207 [facility] Blood 08/18/2022 6:15 AM EDT 08/18/2022 6:15 AM EDT Carlos Terry MD POINT OF CARE TEST O RDERABLES [facility] [place] [address] * POCT Glucose (08/18/2022 2:31 AM EDT) Glucose, POC 176 65 - 199 mg/dL [facility] Comment: Supplemental ranges: <140 mg/dL before meals <180 mg/dL all other times of the day Blood 08/18/2022 2:31 AM EDT 08/18/2022 2:31 AM EDT Carlos Terry MD POINT OF CARE TEST O RDERABLES Performing Organization Address [facility]/[place] [address] * Scan, Peripheral Blood (08/18/2022 2:30 AM EDT) Plat estimate Normal [facility] RBC Morphology Abnormal [facility] Microcyte 6-10 /HPF [facility] Hypochromia Moderate [facility] Ovalocytes 1-5 /HPF [facility] Connor Cells 6-10 /HPF [facility] Plat, Giant Less than 1 /HPF [facility] Blood 08/18/2022 2:30 AM EDT 08/18/2022 2:36 AM EDT Narrative Resulting Agency Comment Spec In Lab Tyler Cobb MD HEMATOLOGY ORDERABLE S Performing Organization Address [facility] Co de Phone Number [facility] [place] [address] * (ABNORMAL) Differential, Automated (08/18/2022 2:30 AM EDT) Neutrophil % 69.7 % [facility] Neutrophil Absolute 16.91(H) 1.70 - 6.10 x10(3)/mc L [facility] Lymph % 8.7 % [facility] Lymphocytes Abs 2.1 0.9 - 3.2 x10(3)/mc L [facility] Monocyte % 8.4 % [facility] Monocyte Abs 2.0(H) 0.3 - 0.9 x10(3)/mc L [facility] Eos % 0.5 % [facility] Eosinophils Abs 0.1 0.0 - 0.4 x10(3)/mc L [facility] Basophil % 0.7 % [facility] Baso Absolute 0.2(H) 0.0 - 0.1 x10(3)/mc L [facility] Immature Gran % 12.00 % [facility] Comment: Immature granulocytes(IG's)percentage and absolute count will include metamyelocytes, myelocytes, and promyelocytes. Blood smears from CBCs yielding IG's will be scanned manually for concordance. If this scan disagrees with the automated IG or if promyelocytes are noted, a manual differential will be performed. Immature Gran Absolute 2.90(H) 0.00 - 0.04 x10(3)/mc L [facility] Blood 08/18/2022 2:30 AM EDT 08/18/2022 2:36 AM EDT Narrative Resulting Agency Comment Spec In Lab Tyler Cobb MD HEMATOLOGY ORDERABLE S [facility] [place] [address] * (ABNORMAL) Hemogram (08/18/2022 2:30 AM EDT) White Blood Cell 24.3(H) 4.0 - 9.5 x10(3)/mc L [facility] Red Blood Cell 4.39 4.00 - 5.21 x10(6)/mc L [facility] Hemoglobin 9.0(L) 11.7 - 15.5 g/dL [facility] Hematocrit 28.2(L) 35.7 - 45.8 % [facility] Mean Cell Volume 64.2(L) 82.6 - 94.4 fL [facility] Mean Cell Hemoglobin 20.5(L) 27.1 - 32.0 pg [facility] Mean Cell Hemoglobin Concentration 31.9 31.7 - 35.0 g/dL [facility] Platelet 226 145 - 357 x10(3)/mc L [facility] RDW Standard Deviation 63.0(H) 37.0 - 46.0 fL [facility] RDW coefficient of variation 29.1(H) 11.5 - 14.1 % [facility] Mean Platelet Volume Not Measured 7.6 - 12.9 fL [facility] NRBC% auto 0.2 % [facility] NRBC Absolute 0.050(H) 0.000 - 0.000 x10(3)/mc L [facility] Blood 08/18/2022 2:30 AM EDT 08/18/2022 2:36 AM EDT Narrative Resulting Agency Comment Spec In Lab Tyler Cobb MD HEMATOLOGY ORDERABLE S [facility] [place] [address] * (ABNORMAL) Basic Metabolic Panel (non-fasting) (08/18/2022 2:30 AM EDT) Glucose 178 65 - 199 mg/dL [facility] Comment:Diabetes: >=200 mg/d L plus symptoms Blood Urea Nitrogen 25(H) 8 - 18 mg/dL [facility] Creatinine 0.67(L) 0.70 - 1.20 mg/dL [facility] Sodium 139 135 - 145 mmol/L [facility] Potassium 4.2 3.5 - 5.0 mmol/L [facility] Comment: Please note: ??Patients with WBC >100,000 may have falsely elevated Potassium levels. ??For accurate Potassium quantification in these patients send serum separator tube (gold top) for subsequent determinations. ??Contact the Clinical Chemistry Laboratory if there are any questions. Chloride 104 98 - 107 mmol/L [facility] Carbon Dioxide 25 22 - 31 mmol/L [facility] Anion Gap 10 5 - 15 mmol/L [facility] Calcium 8.4(L) 8.5 - 10.5 mg/dL [facility] Est Glomerular Filtration Rate 99 >=60 mL/min/1. 73 m?? [facility] Comment: This patient's estimated GFR was [...] and symptoms in addition to eGFR. Blood 08/18/2022 2:30 AM EDT 08/18/2022 2:36 AM EDT Narrative Resulting Agency Comment Spec In Lab Richard Pascal MD CHEMISTRY ORDERABLES Performing Organization Address [facility] Co de Phone Number [facility] [place] [address] * (ABNORMAL) Phosphorus (08/18/2022 2:30 AM EDT) Phosphorus 1.2(Critic al) 2.5 - 4.5 mg/dL [facility] Comment:Called by: IRMA, Read back by: Conner Kelsey, Date/Time:08/18/22 03:39. Blood 08/18/2022 2:30 AM EDT 08/18/2022 2:36 AM EDT Narrative Resulting Agency Comment Spec In Lab Richard Pascal MD CHEMISTRY ORDERABLES Performing Organization Address [facility] Co de Phone Number [facility] [place] [address] * Magnesium (08/18/2022 2:30 AM EDT) Magnesium 1.02 0.69 - 1.07 mmol/L [facility] Blood 08/18/2022 2:30 AM EDT 08/18/2022 2:36 AM EDT Narrative Resulting Agency Comment Spec In Lab Richard Pascal MD CHEMISTRY ORDERABLES Performing Organization Address [facility] Co de Phone Number [facility] [place] [address] * POCT Glucose (08/18/2022 1:15 AM EDT) Glucose, POC 168 65 - 199 mg/dL [facility] Comment: Supplemental ranges: <140 mg/dL before meals <180 mg/dL all other times of the day Blood 08/18/2022 1:15 AM EDT 08/18/2022 1:15 AM EDT Carlos Terry MD POINT OF CARE TEST O RDERABLES Performing Organization Address [facility] Co de Phone Number [facility] [place] [address] * POCT Glucose (08/17/2022 11:04 PM EDT) Glucose, POC 188 65 - 199 mg/dL [facility] Comment: Supplemental ranges: <140 mg/dL before meals <180 mg/dL all other times of the day Blood 08/17/2022 11:0 4 PM EDT 08/17/2022 11:04 PM EDT Carlos Terry MD POINT OF CARE TEST O RDERAREYMUNDO Performing Organization Address [facility] Co de Phone Number [facility] [place] [address] * Potassium (08/17/2022 9:29 PM EDT) Potassium 3.5 3.5 - 5.0 mmol/L [facility] Comment: Please note: ??Patients with WBC >100,000 may have falsely elevated Potassium levels. ??For accurate Potassium quantification in these patients send serum separator tube (gold top) for subsequent determinations. ??Contact the Clinical Chemistry Laboratory if there are any questions. Blood 08/17/2022 9:29 PM EDT 08/17/2022 9:33 PM EDT Narrative Resulting Agency Comment Spec In Lab Richard Pascal MD CHEMISTRY ORDERABLES Performing Organization Address [facility] Co de Phone Number [facility] [place] [address] * POCT Glucose (08/17/2022 8:06 PM EDT) Glucose, POC 161 65 - 199 mg/dL [facility] Comment: Supplemental ranges: <140 mg/dL before meals <180 mg/dL all other times of the day Blood 08/17/2022 8:06 PM EDT 08/17/2022 8:06 PM EDT Carlos Terry MD POINT OF CARE TEST O RDERABLES [facility] [place] [address] * POCT Glucose (08/17/2022 6:47 PM EDT) Glucose, POC 169 65 - 199 mg/dL [facility] Comment: Supplemental ranges: <140 mg/dL before meals <180 mg/dL all other times of the day Blood 08/17/2022 6:47 PM EDT 08/17/2022 6:47 PM EDT Carlos Terry MD POINT OF CARE TEST O RDERABLES Performing Organization Address [facility] Co de Phone Number [facility] [place] [address] * POCT Glucose (08/17/2022 5:42 PM EDT) Glucose, POC 189 65 - 199 mg/dL [facility] Comment: Supplemental ranges: <140 mg/dL before meals <180 mg/dL all other times of the day Blood 08/17/2022 5:42 PM EDT 08/17/2022 5:42 PM EDT Carlos Terry MD POINT OF CARE TEST O RDERABLES Performing Organization Address City/[facility]/ZIP Co de Phone Number [facility] [place] [address] * POCT Glucose (08/17/2022 4:44 PM EDT) Glucose, POC 195 65 - 199 mg/dL [facility] Comment: Supplemental ranges: <140 mg/dL before meals <180 mg/dL all other times of the day Blood 08/17/2022 4:44 PM EDT 08/17/2022 4:44 PM EDT Carlos Terry MD POINT OF CARE TEST O RDERABLES [facility] [place] [address] * Potassium (08/17/2022 3:15 PM EDT) Potassium 3.6 3.5 - 5.0 mmol/L [facility] Comment: Please note: ??Patients with WBC >100,000 may have falsely elevated Potassium levels. ??For accurate Potassium quantification in these patients send serum separator tube (gold top) for subsequent determinations. ??Contact the Clinical Chemistry Laboratory if there are any questions. Blood 08/17/2022 3:15 PM EDT 08/17/2022 3:25 PM EDT Narrative Resulting Agency Comment Spec In Lab Richard Pascal MD CHEMISTRY ORDERABLES Performing Organization Address [facility] de Phone Number [facility] [place] [address] * Vancomycin Level, Random (08/17/2022 3:15 PM EDT) Vancomycin, Random 19.2 mg/L [facility] Comment: This level is for determination of the patient's vancomycin pyke-egucb-ejl-curve (AUC) value. Contact the inpatient pharmacy for interpretation. Blood 08/17/2022 3:15 PM EDT 08/17/2022 3:25 PM EDT Carlos Terry MD CHEMISTRY ORDERABLES Performing Organization Address [facility] Co de Phone Number [facility] [place] [address] * POCT Glucose (08/17/2022 3:10 PM EDT) Glucose, POC 140 65 - 199 mg/dL [facility] Comment: Supplemental ranges: <140 mg/dL before meals <180 mg/dL all other times of the day Blood 08/17/2022 3:10 PM EDT 08/17/2022 3:10 PM EDT Carlos Terry MD POINT OF CARE TEST O RDERABLES Performing Organization Address [facility] Co de Phone Number [facility] [place] [address] * POCT Glucose (08/17/2022 1:41 PM EDT) Glucose, POC 130 65 - 199 mg/dL [facility] Comment: Supplemental ranges: <140 mg/dL before meals <180 mg/dL all other times of the day Blood 08/17/2022 1:41 PM EDT 08/17/2022 1:41 PM EDT Carlos Terry MD POINT OF CARE TEST O RDERABLES Performing Organization Address [facility] Co de Phone Number [facility] [place] [address] * XR Abdomen 1 view (Generic) (08/17/2022 12:09 PM EDT) Anatomical Region Laterality Modality Abdomen N/A Digital Radiogra phy Impressions 08/17/2022 2:31 PM EDT Status post Dobbhoff tube placement with catheter tip terminating at the approximate position of greater curvature. I have personally reviewed the image(s) and the resident's interpretation and agree with the findings, Jenn Pina MD at 08/17/2022 2:31 PM Thank you for letting us participate in the care of this patient. ??If you are a health care provider and have any questions regarding this report, please contact the number below. ??For patients who have questions please contact the health acute care physician that requested your imaging first. ? Narrative 08/17/2022 2:31 PM EDT EXAMINATION: XR ABDOMEN 1 VIEW (GENERIC) CLINICAL HISTORY: verify DHT placement TECHNIQUE: Single AP portable semiupright radiograph of the abdomen COMPARISON: Radiographs of the abdomen 08/15/2022 FINDINGS: An enteric tube descends below the diaphragm with radiopaque catheter tip in the region of greater curvature. A right approach central catheter terminating in the region of the pulmonary trunk is unchanged in position with a loop is seen.. No dilated loops of large or small bowel. Persistent hazy opacities in the lung bases, slightly worse on the left. No suspicious osseous lesion. No soft tissue abnormalities. Procedure Note Jenn Pina MD - 08/17/2022 EXAMINATION: XR ABDOMEN 1 VIEW (GENERIC) CLINICAL HISTORY: verify DHT placement TECHNIQUE: Single AP portable semiupright radiograph of the abdomen COMPARISON: Radiographs of the abdomen 08/15/2022 FINDINGS: An enteric tube descends below the diaphragm with radiopaque catheter tipin the region of greater curvature. A right approach central catheter terminatingin the region of the pulmonary trunk is unchanged in position with a loop isseen.. No dilated loops of large or small bowel. Persistent hazy opacities in thelung bases, slightly worse on the left. No suspicious osseous lesion. No softtissue abnormalities. IMPRESSION Status post Dobbhoff tube placement with catheter tip terminating at the approximate position of greater curvature. I have personally reviewed the image(s) and the resident's interpretationand agree with the findings, Jenn Pina MD at 08/17/2022 2:31 PM Thank you for letting us participate in the care of this patient. If youare a health care provider and have any questions regarding this report,please contact the number below. For patients who have questions please contactthe health acute care physician that requested your imaging first. Carlos Terry MD IMG DX ORDERABLES * POCT Glucose (08/17/2022 11:31 AM EDT) [facility] Signature Glucose, POC 146 65 - 199 mg/dL [facility] Comment: Supplemental ranges: <140 mg/dL before meals <180 mg/dL all other times of the day Blood 08/17/2022 11:3 1 AM EDT 08/17/2022 11:31 AM EDT Carlos Terry MD POINT OF CARE TEST O RDERAREYMUNDO Performing Organization Address City/[facility]/ZIP Co de Phone Number [facility] [place] [address] * POCT Glucose (08/17/2022 9:27 AM EDT) Glucose, POC 170 65 - 199 mg/dL [facility] Comment: Supplemental ranges: <140 mg/dL before meals <180 mg/dL all other times of the day Blood 08/17/2022 9:27 AM EDT 08/17/2022 9:27 AM EDT Carlos Terry MD POINT OF CARE TEST O GABRIELLA Performing Organization Address [facility]/[place] Co de Phone Number [facility] [place] [address] * POCT Glucose (08/17/2022 7:50 AM EDT) Glucose, POC 158 65 - 199 mg/dL [facility] Comment: Supplemental ranges: <140 mg/dL before meals <180 mg/dL all other times of the day Blood 08/17/2022 7:50 AM EDT 08/17/2022 7:50 AM EDT Carlos Terry MD POINT OF CARE TEST O RDERAREYMUNDO Performing Organization Address City/State/[place] Co de Phone Number [facility] [place] [address] * POCT Glucose (08/17/2022 6:53 AM EDT) Glucose, POC 155 65 - 199 mg/dL [facility] Comment: Supplemental ranges: <140 mg/dL before meals <180 mg/dL all other times of the day Blood 08/17/2022 6:53 AM EDT 08/17/2022 6:53 AM EDT Carlos Terry MD POINT OF CARE TEST O GABRIELLA Performing Organization Address City/[facility]/ZIP Co de Phone Number [facility] [place] [address] * POCT Glucose (08/17/2022 6:18 AM EDT) Glucose, POC 166 65 - 199 mg/dL [facility] Comment: Supplemental ranges: <140 mg/dL before meals <180 mg/dL all other times of the day Blood 08/17/2022 6:18 AM EDT 08/17/2022 6:18 AM EDT Carlos Terry MD POINT OF CARE TEST O GABRIELLA Performing Organization Address [facility]/[place] Co de Phone Number [facility] [place] [address] * Heparin (unfractionated) Level (08/17/2022 6:15 AM EDT) UF Heparin 0.48 IU/mL [facility] Comment: Heparin (anti-Xa) levels should be determined in a plasma sample that has been drawn 6 hours after a dose change to approximate steady-state for continuous heparin infusions. Indication specific Heparin (anti-Xa) levels based on order set selection: Acute DVT or PE treatment: 0.3 ? 0.7 IU/mL Thrombosis Prevention (eg. atrial fibrillation, gavin-procedural bridging, mechanical valves): 0.3 ? 0.7 IU/mL Acute Coronary Syndrome: 0.3 ? 0.7 IU/mL Stroke Indications: 0.3 ? 0.5 IU/mL Ultra-low intensity (select indications in cardiac surgery): 0.1 ? 0.3 IU/mL Blood 08/17/2022 6:15 AM EDT 08/17/2022 6:32 AM EDT Narrative Resulting Agency Comment Spec In Lab Carlos Terry MD HEMATOLOGY ORDERABLE S Performing Organization Address City/[facility]/ZIP Co de Phone Number [facility] [place] [address] * POCT Glucose (08/17/2022 5:20 AM EDT) Glucose, POC 165 65 - 199 mg/dL [facility] Comment: Supplemental ranges: <140 mg/dL before meals <180 mg/dL all other times of the day Blood 08/17/2022 5:20 AM EDT 08/17/2022 5:20 AM EDT Carlos Terry MD POINT OF CARE TEST O RDERABLES Performing Organization Address [facility]/[place] Co de Phone Number [facility] [place] [address] * POCT Glucose (08/17/2022 4:19 AM EDT) Glucose, POC 128 65 - 199 mg/dL [facility] Comment: Supplemental ranges: <140 mg/dL before meals <180 mg/dL all other times of the day Blood 08/17/2022 4:19 AM EDT 08/17/2022 4:19 AM EDT Carlos Terry MD POINT OF CARE TEST O RDERABLES Performing Organization Address [facility]/[place] Co de Phone Number [facility] [place] [address] * POCT Glucose (08/17/2022 2:51 AM EDT) Glucose, POC 129 65 - 199 mg/dL [facility] Comment: Supplemental ranges: <140 mg/dL before meals <180 mg/dL all other times of the day Blood 08/17/2022 2:51 AM EDT 08/17/2022 2:51 AM EDT Carlos Terry MD POINT OF CARE TEST O RDERAREYMUNDO [facility] [place] [address] * POCT Glucose (08/17/2022 2:05 AM EDT) Glucose, POC 144 65 - 199 mg/dL [facility] Comment: Supplemental ranges: <140 mg/dL before meals <180 mg/dL all other times of the day Blood 08/17/2022 2:05 AM EDT 08/17/2022 2:05 AM EDT Carlos Terry MD POINT OF CARE TEST O RDERABLES [facility] [place] [address] * POCT Glucose (08/17/2022 1:36 AM EDT) Glucose, POC 147 65 - 199 mg/dL [facility] Comment: Supplemental ranges: <140 mg/dL before meals <180 mg/dL all other times of the day Blood 08/17/2022 1:36 AM EDT 08/17/2022 1:36 AM EDT Carlos Terry MD POINT OF CARE TEST O RDERABLES Performing Organization Address City/[facility]/ZIP Co de Phone Number [facility] [place] [address] * POCT Glucose (08/17/2022 1:07 AM EDT) Glucose, POC 134 65 - 199 mg/dL [facility] Comment: Supplemental ranges: <140 mg/dL before meals <180 mg/dL all other times of the day Blood 08/17/2022 1:07 AM EDT 08/17/2022 1:07 AM EDT Carlos Terry MD POINT OF CARE TEST O RDERABLES [facility] [place] [address] * (ABNORMAL) Basic Metabolic Panel (non-fasting) (08/17/2022 12:45 AM EDT) Glucose 157 65 - 199 mg/dL [facility] Comment:Diabetes: >=200 mg/d L plus symptoms Blood Urea Nitrogen 36(H) 8 - 18 mg/dL [facility] Creatinine 1.10 0.70 - 1.20 mg/dL [facility] Sodium 136 135 - 145 mmol/L [facility] Potassium Not Perf 3.5 - 5.0 [facility] Comment: Duplicate order Please note: ??Patients with WBC >100,000 may have falsely elevated Potassium levels. ??For accurate Potassium quantification in these patients send serum separator tube (gold top) for subsequent determinations. ??Contact the Clinical Chemistry Laboratory if there are any questions. Chloride 101 98 - 107 mmol/L [facility] Carbon Dioxide Not Perf 22 - 31 [facility] Comment:Add-on request. Samp le too old to perform test. Anion Gap Unable to Calculate 5 - 15 mmol/L [facility] Calcium 8.3(L) 8.5 - 10.5 mg/dL [facility] Est Glomerular Filtration Rate 57(L) >=60 mL/min/1 .73 m?? [facility] Comment: This patient's estimated GFR was [...] and symptoms in addition to eGFR. Blood Venous Draw / Unknown 08/17/2022 12:45 AM EDT 08/17/2022 12:58 AM EDT Narrative Resulting Agency Comment Spec In Lab Tyler Cobb MD CHEMISTRY ORDERABLES [facility] [place] [address] * Potassium (08/17/2022 12:45 AM EDT) Potassium 4.6 3.5 - 5.0 mmol/L [facility] Comment: Please note: ??Patients with WBC >100,000 may have falsely elevated Potassium levels. ??For accurate Potassium quantification in these patients send serum separator tube (gold top) for subsequent determinations. ??Contact the Clinical Chemistry Laboratory if there are any questions. Blood Venous Draw / Unknown 08/17/2022 12:45 AM EDT 08/17/2022 12:58 AM EDT Narrative Resulting Agency Comment Spec In Lab Tyler Cobb MD CHEMISTRY ORDERABLES [facility] [place] [address] * (ABNORMAL) Differential, Automated (08/17/2022 12:45 AM EDT) [facility] Neutrophil % 75.1 % [facility] Neutrophil Absolute 13.95(H) 1.70 - 6.10 x10(3)/mc L [facility] Lymph % 9.5 % [facility] Lymphocytes Abs 1.8 0.9 - 3.2 x10(3)/mc L [facility] Monocyte % 9.5 % [facility] Monocyte Abs 1.8(H) 0.3 - 0.9 x10(3)/mc L [facility] Eos % 0.5 % [facility] Eosinophils Abs 0.1 0.0 - 0.4 x10(3)/mc L [facility] Basophil % 0.4 % [facility] Baso Absolute 0.1 0.0 - 0.1 x10(3)/mc L [facility] Immature Gran % 5.00 % [facility] Comment: Immature granulocytes(IG's)percentage and absolute count will include metamyelocytes, myelocytes, and promyelocytes. Blood smears from CBCs yielding IG's will be scanned manually for concordance. If this scan disagrees with the automated IG or if promyelocytes are noted, a manual differential will be performed. Immature Gran Absolute 0.93(H) 0.00 - 0.04 x10(3)/mc L [facility] Blood 08/17/2022 12:4 5 AM EDT 08/17/2022 12:57 AM EDT Narrative Resulting Agency Comment Spec In Lab Tyler Cobb MD HEMATOLOGY ORDERABLE S [facility] [place] [address] * (ABNORMAL) Hemogram (08/17/2022 12:45 AM EDT) White Blood Cell 18.6(H) 4.0 - 9.5 x10(3)/mc L [facility] Red Blood Cell 4.00 4.00 - 5.21 x10(6)/mc L [facility] Hemoglobin 8.2(L) 11.7 - 15.5 g/dL [facility] Hematocrit 26.0(L) 35.7 - 45.8 % [facility] Mean Cell Volume 65.0(L) 82.6 - 94.4 fL [facility] Mean Cell Hemoglobin 20.5(L) 27.1 - 32.0 pg [facility] Mean Cell Hemoglobin Concentration 31.5(L) 31.7 - 35.0 g/dL [facility] Platelet 176 145 - 357 x10(3)/mc L [facility] RDW Standard Deviation 64.0(H) 37.0 - 46.0 fL [facility] RDW coefficient of variation 29.0(H) 11.5 - 14.1 % [facility] Mean Platelet Volume Not Measured 7.6 - 12.9 fL [facility] NRBC% auto 0.1 % [facility] NRBC Absolute 0.020(H) 0.000 - 0.000 x10(3)/mc L [facility] Blood 08/17/2022 12:4 5 AM EDT 08/17/2022 12:57 AM EDT Narrative Resulting Agency Comment Spec In Lab Tyler Cobb MD HEMATOLOGY ORDERABLE S [facility] [place] [address] * Heparin (unfractionated) Level (08/17/2022 12:45 AM EDT) Pathologist [facility] UF Heparin 0.19 IU/mL [facility] Comment: Heparin (anti-Xa) levels should be determined in a plasma sample that has been drawn 6 hours after a dose change to approximate steady-state for continuous heparin infusions. Indication specific Heparin (anti-Xa) levels based on order set selection: Acute DVT or PE treatment: 0.3 ? 0.7 IU/mL Thrombosis Prevention (eg. atrial fibrillation, gavin-procedural bridging, mechanical valves): 0.3 ? 0.7 IU/mL Acute Coronary Syndrome: 0.3 ? 0.7 IU/mL Stroke Indications: 0.3 ? 0.5 IU/mL Ultra-low intensity (select indications in cardiac surgery): 0.1 ? 0.3 IU/mL Blood 08/17/2022 12:4 5 AM EDT 08/17/2022 12:57 AM EDT Narrative Resulting Agency Comment Spec In Lab Carlos Terry MD HEMATOLOGY ORDERABLE S [facility] [place] [address] * (ABNORMAL) Phosphorus (08/17/2022 12:45 AM EDT) [facility] Phosphorus 2.2(L) 2.5 - 4.5 mg/dL [facility] Blood 08/17/2022 12:4 5 AM EDT 08/17/2022 12:57 AM EDT Narrative Resulting Agency Comment Spec In Lab Richard Pascal MD CHEMISTRY ORDERABLES Performing Organization Address City/[facility]/ZIP Co de Phone Number [facility] [place] [address] * Magnesium (08/17/2022 12:45 AM EDT) [facility] Magnesium 0.89 0.69 - 1.07 mmol/L [facility] Blood 08/17/2022 12:4 5 AM EDT 08/17/2022 12:57 AM EDT Narrative Resulting Agency Comment Spec In Lab Richard Pascal MD CHEMISTRY ORDERABLES Performing Organization Address [facility]/[place] Co de Phone Number [facility] [place] [address] * POCT Glucose (08/17/2022 12:02 AM EDT) Glucose, POC 147 65 - 199 mg/dL [facility] Comment: Supplemental ranges: <140 mg/dL before meals <180 mg/dL all other times of the day Blood 08/17/2022 12:0 2 AM EDT 08/17/2022 12:02 AM EDT Carlos Terry MD POINT OF CARE TEST O RDERABLES Performing Organization Address [facility] Co de Phone Number [facility] [place] [address] * POCT Glucose (08/16/2022 11:13 PM EDT) Glucose, POC 154 65 - 199 mg/dL [facility] Comment: Supplemental ranges: <140 mg/dL before meals <180 mg/dL all other times of the day Blood 08/16/2022 11:1 3 PM EDT 08/16/2022 11:13 PM EDT Carlos Terry MD POINT OF CARE TEST O RDERABLES Performing Organization Address [facility]/[place] Co de Phone Number [facility] [place] [address] * CT Head wo Contrast (Generic) (08/16/2022 10:44 PM EDT) Anatomical Region Laterality Modality Head Computed Tomogra phy Impressions 08/16/2022 11:19 PM EDT No acute intracranial abnormality and no change from prior Thank you for letting us participate in the care of this patient. ??If you are a health care provider and have any questions regarding this report, please contact the number below. ??For patients who have questions please contact the health acute care physician that requested your imaging first. ? Electronically signed by: Moustapha Correa MD, [facility] ([phone]), at 08/16/2022 11:19 PM Narrative 08/16/2022 11:19 PM EDT EXAMINATION: CT HEAD WO CONTRAST (GENERIC) CLINICAL HISTORY: intubated, minimal responsiveness off sedation TECHNIQUE: CT head performed without intravenous contrast administration. COMPARISON: 08/13/[address] FINDINGS: Review of bone windows demonstrates clear appearance visualized mastoid air cells and middle ear cavities. There is minimal mucosal thickening lateral margin left maxillary antrum. No lytic or blastic disease calvarium. Skull base soft tissues and orbits are unremarkable. There is no intracranial hemorrhage, mass, mass effect, midline shift or extra-axial fluid collection. No cortical infarctions or ventriculomegaly. Procedure Note Moustapha Correa MD - 08/16/2022 EXAMINATION: CT HEAD WO CONTRAST (GENERIC) CLINICAL HISTORY: intubated, minimal responsiveness off sedation TECHNIQUE: CT head performed without intravenous contrast administration. COMPARISON: 08/13/[address] FINDINGS: Review of bone windows demonstrates clear appearance visualized mastoidair cells and middle ear cavities. There is minimal mucosal thickeninglateral margin left maxillary antrum. No lytic or blastic disease calvarium. Skull base soft tissues and orbits are unremarkable. There is no intracranial hemorrhage, mass, mass effect, midline shift or extra-axial fluid collection. No cortical infarctions orventriculomegaly. IMPRESSION No acute intracranial abnormality and no change from prior Thank you for letting us participate in the care of this patient. If youare a health care provider and have any questions regarding this report,please contact the number below. For patients who have questions please contactthe health acute care physician that requested your imaging first. Electronically signed by: Moustapha Correa MD, [facility]([phone]), at 08/16/2022 11:19 PM Carlos Terry MD IMG CT ORDERABLES * POCT Glucose (08/16/2022 10:12 PM EDT) Glucose, POC 184 65 - 199 mg/dL [facility] Comment: Supplemental ranges: <140 mg/dL before meals <180 mg/dL all other times of the day Blood 08/16/2022 10:1 2 PM EDT 08/16/2022 10:12 PM EDT Carlos Terry MD POINT OF CARE TEST O RDERABLES [facility] [place] [address] * POCT Glucose (08/16/2022 9:23 PM EDT) Glucose, POC 183 65 - 199 mg/dL [facility] Comment: Supplemental ranges: <140 mg/dL before meals <180 mg/dL all other times of the day Blood 08/16/2022 9:23 PM EDT 08/16/2022 9:23 PM EDT Carlos Terry MD POINT OF CARE TEST O RDERABLES Performing Organization Address City/State/[place] Co de Phone Number [facility] [place] [address] * (ABNORMAL) Coox2 (08/16/2022 8:12 PM EDT) pO2, Coox 29 mmHg [facility] Hgb Blood Gas 9.3(L) 11.7 - 15.5 g/dL [facility] Oxyhemoglobin, Coox 56.6 % [facility] Carboxyhemoglo bin, Coox 0.2 % [facility] Comment: Nonsmokers: 0.5-1.5% COHB Smokers: Variable, but usually less than 10% Toxic: 20-30% COHB Lethal: Greater than 60% COHB Methemoglobin, Coox 1.3 <=1.5 % [facility] Source Coox Mixed Venous [facility] Blood 08/16/2022 8:12 PM EDT 08/16/2022 8:12 PM EDT Carlos Terry MD POINT OF CARE TEST O RDERABLES [facility] [place] [address] * (ABNORMAL) BLOOD GAS 2 ARTERIAL (08/16/2022 8:09 PM EDT) pH, Arterial 7.48(H) 7.35 - 7.45 [facility] PCO2, Arterial 34(L) 35 - 45 mmHg [facility] PO2, Arterial 78(L) 85 - 104 mmHg [facility] Bicarbonate, Arterial 25.0 20.0 - 26.0 mmol/L [facility] Base Excess, Arterial 1.5 -3.0 - 3.0 mmol/L [facility] Hgb Blood Gas 9.4(L) 11.7 - 15.5 g/dL [facility] Oxyhemoglobin, Arterial 94.2 94.0 - 97.0 % [facility] Carboxyhemoglob in, Arterial 0.1 % [facility] Comment: Nonsmokers: 0.5-1.5% COHB Smokers: Variable, but usually less than 10% Toxic: 20-30% COHB Lethal: Greater than 60% COHB Methemoglobin, Arterial 0.9 <=1.5 % [facility] Na Whole Blood 133(L) 135 - 145 mmol/L [facility] K Whole Blood 4.6 3.5 - 5.0 mmol/L [facility] Comment: Please note: Patients with WBC >100,000 may have falsely elevated Potassium levels. Contact the Clinical Chemistry Laboratory if there are any questions. ICa Whole Blood 1.14(L) 1.15 - 1.33 mmol/L [facility] Comment: Note: ??Total bilirubin higher than 20 mg/dL may lead to falsely low ionized calcium. CL Whole Blood 102 98 - 107 mmol/L [facility] Gluc Whole Bld 180 65 - 199 mg/dL [facility] Comment:Diabetes: >=200 mg/d L plus symptoms. Lactate WB 1.5 0.5 - 2.2 mmol/L [facility] FIO2 Art 30 % [facility] PF Ratio Art 260 [facility] Blood 08/16/2022 8:09 PM EDT 08/16/2022 8:09 PM EDT Carlos Terry MD POINT OF CARE TEST O RDERABLES [facility] [place] [address] * (ABNORMAL) Basic Metabolic Panel (non-fasting) (08/16/2022 6:00 PM EDT) Glucose 181 65 - 199 mg/dL [facility] Comment:Diabetes: >=200 mg/d L plus symptoms Blood Urea Nitrogen 37(H) 8 - 18 mg/dL [facility] Creatinine 1.15 0.70 - 1.20 mg/dL [facility] Sodium 136 135 - 145 mmol/L [facility] Potassium 4.4 3.5 - 5.0 mmol/L [facility] Comment: Please note: ??Patients with WBC >100,000 may have falsely elevated Potassium levels. ??For accurate Potassium quantification in these patients send serum separator tube (gold top) for subsequent determinations. ??Contact the Clinical Chemistry Laboratory if there are any questions. Chloride 100 98 - 107 mmol/L [facility] Carbon Dioxide 24 22 - 31 mmol/L [facility] Anion Gap 12 5 - 15 mmol/L [facility] Calcium 8.4(L) 8.5 - 10.5 mg/dL [facility] Est Glomerular Filtration Rate 54(L) >=60 mL/min/1. 73 m?? [facility] Comment: This patient's estimated GFR was [...] and symptoms in addition to eGFR. Blood 08/16/2022 6:00 PM EDT 08/16/2022 6:20 PM EDT Narrative Resulting Agency Comment Spec In Lab Carlos Terry MD CHEMISTRY ORDERABLES [facility] [place] [address] * (ABNORMAL) BLOOD GAS 2 ARTERIAL (08/16/2022 5:59 PM EDT) pH, Arterial 7.53(H) 7.35 - 7.45 [facility] PCO2, Arterial 26(L) 35 - 45 mmHg [facility] PO2, Arterial 48(Critica l) 85 - 104 mmHg [facility] Comment:Noted by electrical and instrument mechanic. Bicarbonate, Arterial 21.2 20.0 - 26.0 mmol/L [facility] Base Excess, Arterial -1.5 -3.0 - 3.0 mmol/L [facility] Hgb Blood Gas 9.5(L) 11.7 - 15.5 g/dL [facility] Oxyhemoglobin, Arterial 86.1(L) 94.0 - 97.0 % [facility] Carboxyhemoglob in, Arterial 0.6 % [facility] Comment: Nonsmokers: 0.5-1.5% COHB Smokers: Variable, but usually less than 10% Toxic: 20-30% COHB Lethal: Greater than 60% COHB Methemoglobin, Arterial 0.8 <=1.5 % [facility] Na Whole Blood 132(L) 135 - 145 mmol/L [facility] K Whole Blood 4.1 3.5 - 5.0 mmol/L [facility] Comment: Please note: Patients with WBC >100,000 may have falsely elevated Potassium levels. Contact the Clinical Chemistry Laboratory if there are any questions. ICa Whole Blood 1.13(L) 1.15 - 1.33 mmol/L [facility] Comment: Note: ??Total bilirubin higher than 20 mg/dL may lead to falsely low ionized calcium. CL Whole Blood 102 98 - 107 mmol/L [facility] Gluc Whole Bld 158 65 - 199 mg/dL [facility] Comment:Diabetes: >=200 mg/d L plus symptoms. Lactate WB 1.3 0.5 - 2.2 mmol/L [facility] FIO2 Art 21 % [facility] PF Ratio Art 229 [facility] Blood 08/16/2022 5:59 PM EDT 08/16/2022 5:59 PM EDT Carlos Terry MD POINT OF CARE TEST O RDERABLES [facility] [place] [address] * (ABNORMAL) BLOOD GAS 2 ARTERIAL (08/16/2022 4:02 PM EDT) pH, Arterial 7.53(H) 7.35 - 7.45 [facility] PCO2, Arterial 30(L) 35 - 45 mmHg [facility] PO2, Arterial 55(L) 85 - 104 mmHg [facility] Bicarbonate, Arterial 24.9 20.0 - 26.0 mmol/L [facility] Base Excess, Arterial 2.1 -3.0 - 3.0 mmol/L [facility] Hgb Blood Gas 9.3(L) 11.7 - 15.5 g/dL [facility] Oxyhemoglobin, Arterial 88.5(L) 94.0 - 97.0 % [facility] Carboxyhemoglob in, Arterial 1.0 % [facility] Comment: Nonsmokers: 0.5-1.5% COHB Smokers: Variable, but usually less than 10% Toxic: 20-30% COHB Lethal: Greater than 60% COHB Methemoglobin, Arterial 0.9 <=1.5 % [facility] Na Whole Blood 133(L) 135 - 145 mmol/L [facility] K Whole Blood 4.7 3.5 - 5.0 mmol/L [facility] Comment: Please note: Patients with WBC >100,000 may have falsely elevated Potassium levels. Contact the Clinical Chemistry Laboratory if there are any questions. ICa Whole Blood 1.15 1.15 - 1.33 mmol/L [facility] Comment: Note: ??Total bilirubin higher than 20 mg/dL may lead to falsely low ionized calcium. CL Whole Blood 102 98 - 107 mmol/L [facility] Gluc Whole Bld 130 65 - 199 mg/dL [facility] Comment:Diabetes: >=200 mg/d L plus symptoms. Lactate WB 1.5 0.5 - 2.2 mmol/L [facility] FIO2 Art 21 % [facility] PF Ratio Art 262 [facility] Blood 08/16/2022 4:02 PM EDT 08/16/2022 4:02 PM EDT Carlos Terry MD POINT OF CARE TEST O RDERAREYMUNDO Performing Organization Address City/State/[place] Co de Phone Number [facility] [place] [address] * (ABNORMAL) Coox2 (08/16/2022 3:58 PM EDT) pO2, Coox 24 mmHg [facility] Hgb Blood Gas 9.4(L) 11.7 - 15.5 g/dL [facility] Oxyhemoglobin, Coox 50.5 % [facility] Carboxyhemoglo bin, Coox 0.5 % [facility] Comment: Nonsmokers: 0.5-1.5% COHB Smokers: Variable, but usually less than 10% Toxic: 20-30% COHB Lethal: Greater than 60% COHB Methemoglobin, Coox 1.1 <=1.5 % [facility] Source Coox Mixed Venous [facility] Blood 08/16/2022 3:58 PM EDT 08/16/2022 3:58 PM EDT Carlos Terry MD POINT OF CARE TEST O RDERAREYMUNDO [facility] [place] [address] * POCT Glucose (08/16/2022 2:15 PM EDT) Glucose, POC 88 65 - 199 mg/dL [facility] Comment: Supplemental ranges: <140 mg/dL before meals <180 mg/dL all other times of the day Blood 08/16/2022 2:15 PM EDT 08/16/2022 2:15 PM EDT Carlos Terry MD POINT OF CARE TEST O GABRIELLA Performing Organization Address City/[facility]/[place] Co de Phone Number [facility] [place] [address] * POCT Glucose (08/16/2022 1:11 PM EDT) Glucose, POC 77 65 - 199 mg/dL [facility] Comment: Supplemental ranges: <140 mg/dL before meals <180 mg/dL all other times of the day Blood 08/16/2022 1:11 PM EDT 08/16/2022 1:11 PM EDT Carlos Terry MD POINT OF CARE TEST O GABRIELLA Performing Organization Address [facility]/[place] Co de Phone Number [facility] [place] [address] * (ABNORMAL) BLOOD GAS 2 ARTERIAL (08/16/2022 12:16 PM EDT) pH, Arterial 7.52(H) 7.35 - 7.45 [facility] PCO2, Arterial 30(L) 35 - 45 mmHg [facility] PO2, Arterial 59(L) 85 - 104 mmHg [facility] Bicarbonate, Arterial 24.2 20.0 - 26.0 mmol/L [facility] Base Excess, Arterial 1.5 -3.0 - 3.0 mmol/L [facility] Hgb Blood Gas 9.6(L) 11.7 - 15.5 g/dL [facility] Oxyhemoglobin, Arterial 91.1(L) 94.0 - 97.0 % [facility] Carboxyhemoglob in, Arterial 1.0 % [facility] Comment: Nonsmokers: 0.5-1.5% COHB Smokers: Variable, but usually less than 10% Toxic: 20-30% COHB Lethal: Greater than 60% COHB Methemoglobin, Arterial 0.7 <=1.5 % [facility] Na Whole Blood 132(L) 135 - 145 mmol/L [facility] K Whole Blood 3.4(L) 3.5 - 5.0 mmol/L [facility] Comment: Please note: Patients with WBC >100,000 may have falsely elevated Potassium levels. Contact the Clinical Chemistry Laboratory if there are any questions. ICa Whole Blood 1.16 1.15 - 1.33 mmol/L [facility] Comment: Note: ??Total bilirubin higher than 20 mg/dL may lead to falsely low ionized calcium. CL Whole Blood 101 98 - 107 mmol/L [facility] Gluc Whole Bld 86 65 - 199 mg/dL [facility] Comment:Diabetes: >=200 mg/d L plus symptoms. Lactate WB 1.8 0.5 - 2.2 mmol/L [facility] FIO2 Art 21 % [facility] PF Ratio Art 281 [facility] Blood 08/16/2022 12:1 6 PM EDT 08/16/2022 12:16 PM EDT Carlos Terry MD POINT OF CARE TEST O RDERABLES [facility] [place] [address] * (ABNORMAL) Coox2 (08/16/2022 12:11 PM EDT) pO2, Coox 27 mmHg [facility] Hgb Blood Gas 9.2(L) 11.7 - 15.5 g/dL [facility] Oxyhemoglobin, Coox 56.0 % [facility] Carboxyhemoglo bin, Coox 0.9 % [facility] Comment: Nonsmokers: 0.5-1.5% COHB Smokers: Variable, but usually less than 10% Toxic: 20-30% COHB Lethal: Greater than 60% COHB Methemoglobin, Coox 0.7 <=1.5 % [facility] Source Coox Mixed Venous [facility] Blood 08/16/2022 12:1 1 PM EDT 08/16/2022 12:11 PM EDT Carlos Terry MD POINT OF CARE TEST O RDERAREYMUNDO Performing Organization Address [facility]/[place] Co de Phone Number [facility] [place] [address] * (ABNORMAL) Coox2 (08/16/2022 11:17 AM EDT) pO2, Coox 24 mmHg [facility] Hgb Blood Gas 9.5(L) 11.7 - 15.5 g/dL [facility] Oxyhemoglobin, Coox 49.3 % [facility] Carboxyhemoglo bin, Coox 0.3 % [facility] Comment: Nonsmokers: 0.5-1.5% COHB Smokers: Variable, but usually less than 10% Toxic: 20-30% COHB Lethal: Greater than 60% COHB Methemoglobin, Coox 0.9 <=1.5 % [facility] Source Coox Mixed Venous [facility] Blood 08/16/2022 11:1 7 AM EDT 08/16/2022 11:17 AM EDT Carlos Terry MD POINT OF CARE TEST O GABRIELLA Performing Organization Address [facility]/[place] Co de Phone Number [facility] [place] [address] * XR Chest One View (08/16/2022 10:31 AM EDT) Anatomical Region Laterality Modality Chest N/A Digital Radiogra phy Impressions 08/16/2022 10:56 AM EDT PA catheter has a persistent loop near the tip, similar to the prior comparison study. Improved pulmonary edema. Thank you for letting us participate in the care of this patient. ??If you are a health care provider and have any questions regarding this report, please contact the number below. ??For patients who have questions please contact the health acute care physician that requested your imaging first. ? Electronically signed by: Alfonso Adams MD, [facility] ([phone]), at 08/16/2022 10:56 AM Narrative 08/16/2022 10:56 AM EDT EXAMINATION: XR CHEST ONE VIEW CLINICAL HISTORY: pa catheter verification, comparison to prior TECHNIQUE: 1 view of the chest COMPARISON: 08/15/2022 FINDINGS: Similar appearance of the right IJ PA catheter, with a loop near the tip. Endotracheal tube is 2.0 cm above the consuelo. Enteric tube in the stomach. Lungs are well-inflated. Interval improvement in previously visualized patchy alveolar opacities, mild persistence primarily at the left base. Cardiac and mediastinal contours unchanged. Procedure Note Alfonso Adams MD - 08/16/2022 EXAMINATION: XR CHEST ONE VIEW CLINICAL HISTORY: pa catheter verification, comparison to prior TECHNIQUE: 1 view of the chest COMPARISON: 08/15/2022 FINDINGS: Similar appearance of the right IJ PA catheter, with a loop near thetip. Endotracheal tube is 2.0 cm above the consuelo. Enteric tube in thestomach. Lungs are well-inflated. Interval improvement in previously visualizedpatchy alveolar opacities, mild persistence primarily at the left base. Cardiacand mediastinal contours unchanged. IMPRESSION PA catheter has a persistent loop near the tip, similar to the priorcomparison study. Improved pulmonary edema. Thank you for letting us participate in the care of this patient. If youare a health care provider and have any questions regarding this report,please contact the number below. For patients who have questions please contactthe health acute care physician that requested your imaging first. Electronically signed by: Alfonso Adams MD, [facility]([phone]), at 08/16/2022 10:56 AM Carlos Terry MD IMG DX ORDERABLES * (ABNORMAL) Coox2 (08/16/2022 9:48 AM EDT) pO2, Coox 27 mmHg [facility] Hgb Blood Gas 10.0(L) 11.7 - 15.5 g/dL [facility] Oxyhemoglobin, Coox 56.5 % [facility] Carboxyhemoglo bin, Coox 0.5 % [facility] Comment: Nonsmokers: 0.5-1.5% COHB Smokers: Variable, but usually less than 10% Toxic: 20-30% COHB Lethal: Greater than 60% COHB Methemoglobin, Coox 0.9 <=1.5 % [facility] Source Coox Mixed Venous [facility] Blood 08/16/2022 9:48 AM EDT 08/16/2022 9:48 AM EDT Carlos Terry MD POINT OF CARE TEST O RDERABLES Performing Organization Address City/[facility]/[place] Co de Phone Number [facility] [place] [address] * POCT Glucose (08/16/2022 9:47 AM EDT) Glucose, POC 159 65 - 199 mg/dL [facility] Comment: Supplemental ranges: <140 mg/dL before meals <180 mg/dL all other times of the day Blood 08/16/2022 9:47 AM EDT 08/16/2022 9:47 AM EDT Carlos Terry MD POINT OF CARE TEST O RDERABLES Performing Organization Address City/[facility]/[place] Co de Phone Number [facility] [place] [address] * (ABNORMAL) Coox2 (08/16/2022 8:20 AM EDT) pO2, Coox 26 mmHg [facility] Hgb Blood Gas 9.9(L) 11.7 - 15.5 g/dL [facility] Oxyhemoglobin, Coox 48.7 % [facility] Carboxyhemoglo bin, Coox 0.6 % [facility] Comment: Nonsmokers: 0.5-1.5% COHB Smokers: Variable, but usually less than 10% Toxic: 20-30% COHB Lethal: Greater than 60% COHB Methemoglobin, Coox 1.0 <=1.5 % [facility] Source Coox Mixed Venous [facility] Blood 08/16/2022 8:20 AM EDT 08/16/2022 8:20 AM EDT Carlos Terry MD POINT OF CARE TEST O RDERABLES [facility] [place] [address] * (ABNORMAL) BLOOD GAS 2 ARTERIAL (08/16/2022 8:17 AM EDT) pH, Arterial 7.46(H) 7.35 - 7.45 [facility] PCO2, Arterial 36 35 - 45 mmHg [facility] PO2, Arterial 68(L) 85 - 104 mmHg [facility] Bicarbonate, Arterial 24.8 20.0 - 26.0 mmol/L [facility] Base Excess, Arterial 1.0 -3.0 - 3.0 mmol/L [facility] Hgb Blood Gas 10.0(L) 11.7 - 15.5 g/dL [facility] Oxyhemoglobin, Arterial 92.7(L) 94.0 - 97.0 % [facility] Carboxyhemoglob in, Arterial 0.3 % [facility] Comment: Nonsmokers: 0.5-1.5% COHB Smokers: Variable, but usually less than 10% Toxic: 20-30% COHB Lethal: Greater than 60% COHB Methemoglobin, Arterial 0.8 <=1.5 % [facility] Na Whole Blood 134(L) 135 - 145 mmol/L [facility] K Whole Blood 3.6 3.5 - 5.0 mmol/L [facility] Comment: Please note: Patients with WBC >100,000 may have falsely elevated Potassium levels. Contact the Clinical Chemistry Laboratory if there are any questions. ICa Whole Blood 1.14(L) 1.15 - 1.33 mmol/L [facility] Comment: Note: ??Total bilirubin higher than 20 mg/dL may lead to falsely low ionized calcium. CL Whole Blood 101 98 - 107 mmol/L [facility] Gluc Whole Bld 168 65 - 199 mg/dL [facility] Comment:Diabetes: >=200 mg/d L plus symptoms. Lactate WB 2.2 0.5 - 2.2 mmol/L [facility] FIO2 Art 21 % [facility] PF Ratio Art 324 [facility] Blood 08/16/2022 8:17 AM EDT 08/16/2022 8:17 AM EDT Carlos Terry MD POINT OF CARE TEST O RDERABLES Performing Organization Address [facility]/[place] Co de Phone Number [facility] [place] [address] * Potassium (08/16/2022 8:10 AM EDT) Potassium 3.7 3.5 - 5.0 mmol/L [facility] Comment: Please note: ??Patients with WBC >100,000 may have falsely elevated Potassium levels. ??For accurate Potassium quantification in these patients send serum separator tube (gold top) for subsequent determinations. ??Contact the Clinical Chemistry Laboratory if there are any questions. Blood 08/16/2022 8:10 AM EDT 08/16/2022 8:28 AM EDT Narrative Resulting Agency Comment Spec In Lab Richard Pascal MD CHEMISTRY ORDERABLES Performing Organization Address [facility]/[place] Co de Phone Number [facility] [place] [address] * (ABNORMAL) Troponin (08/16/2022 8:10 AM EDT) Troponin-T, High Sensitivity 251(H) <=14 ng/L [facility] Comment: This patient's troponin T concentration was determined using the [employer] 5th Generation troponin T assay. The 99th percentile for Troponin T for this test is 14 ng/L for females, and 22 ng/L for males. According to the fourth universal definition of myocardial infarction, the term acute myocardial infarction should be used when there is acute myocardial injury with clinical evidence of acute myocardial ischemia and with detection of a rise and/or fall of cardiac troponin values with at least one value above the 99th percentile and at least one of the following: - Symptoms of myocardial ischemia; - New ischemic ECG changes; - Development of pathological Q waves; - Imaging evidence of new loss of viable myocardium or new regional wall motion abnormality in a pattern consistent with an ischemic etiology; - Identification of a coronary thrombus by angiography or autopsy (not for type 2 or 3 MIs) Serial measurement of troponin and the change in troponin concentration over time (delta) is crucial for the diagnosis of acute myocardial infarction. Guidance on the interpretation of the new 5th Generation Troponin T values and the delta troponin value can be found in the [facility] Test Catalog Troponin - [facility] Test Catalog Reference: Fourth [place] Definition of Myocardial Infarction. Journal of the [place] [employer] 2018;72:1524-2312 Blood 08/16/2022 8:10 AM EDT 08/16/2022 8:28 AM EDT Narrative Resulting Agency Comment Spec In Lab Carlos Terry MD CHEMISTRY ORDERABLES Performing Organization Address [facility]/[place] Co de Phone Number [facility] [place] [address] * POCT Glucose (08/16/2022 5:54 AM EDT) Glucose, POC 194 65 - 199 mg/dL [facility] Comment: Supplemental ranges: <140 mg/dL before meals <180 mg/dL all other times of the day Blood 08/16/2022 5:54 AM EDT 08/16/2022 5:54 AM EDT Carlos Terry MD POINT OF CARE TEST O RDERABLES Performing Organization Address City/[facility]/[place] Co de Phone Number [facility] [place] [address] * (ABNORMAL) Coox2 (08/16/2022 4:44 AM EDT) pO2, Coox 27 mmHg [facility] Hgb Blood Gas 9.8(L) 11.7 - 15.5 g/dL [facility] Oxyhemoglobin, Coox 54.2 % [facility] Carboxyhemoglo bin, Coox 0.8 % [facility] Comment: Nonsmokers: 0.5-1.5% COHB Smokers: Variable, but usually less than 10% Toxic: 20-30% COHB Lethal: Greater than 60% COHB Methemoglobin, Coox 1.0 <=1.5 % [facility] Source Coox Mixed Venous [facility] Blood 08/16/2022 4:44 AM EDT 08/16/2022 4:44 AM EDT Carlos Terry MD POINT OF CARE TEST O RDERABLES [facility] [place] [address] * (ABNORMAL) BLOOD GAS 2 ARTERIAL (08/16/2022 4:41 AM EDT) pH, Arterial 7.47(H) 7.35 - 7.45 [facility] PCO2, Arterial 34(L) 35 - 45 mmHg [facility] PO2, Arterial 71(L) 85 - 104 mmHg [facility] Bicarbonate, Arterial 24.5 20.0 - 26.0 mmol/L [facility] Base Excess, Arterial 0.9 -3.0 - 3.0 mmol/L [facility] Hgb Blood Gas 10.8(L) 11.7 - 15.5 g/dL [facility] Oxyhemoglobin, Arterial 93.2(L) 94.0 - 97.0 % [facility] Carboxyhemoglob in, Arterial 0.7 % [facility] Comment: Nonsmokers: 0.5-1.5% COHB Smokers: Variable, but usually less than 10% Toxic: 20-30% COHB Lethal: Greater than 60% COHB Methemoglobin, Arterial 0.8 <=1.5 % [facility] Na Whole Blood 133(L) 135 - 145 mmol/L [facility] K Whole Blood 3.9 3.5 - 5.0 mmol/L [facility] Comment: Please note: Patients with WBC >100,000 may have falsely elevated Potassium levels. Contact the Clinical Chemistry Laboratory if there are any questions. ICa Whole Blood 1.10(L) 1.15 - 1.33 mmol/L [facility] Comment: Note: ??Total bilirubin higher than 20 mg/dL may lead to falsely low ionized calcium. CL Whole Blood 102 98 - 107 mmol/L [facility] Gluc Whole Bld 216(H) 65 - 199 mg/dL [facility] Comment:Diabetes: >=200 mg/d L plus symptoms. Lactate WB 1.7 0.5 - 2.2 mmol/L [facility] FIO2 Art 25 % [facility] PF Ratio Art 284 [facility] Blood 08/16/2022 4:41 AM EDT 08/16/2022 4:41 AM EDT Carlos Terry MD POINT OF CARE TEST O RDERABLES Performing Organization Address [facility]/[place] Co de Phone Number [facility] [place] [address] * Scan, Peripheral Blood (08/16/2022 3:36 AM EDT) Plat estimate Normal [facility] RBC Morphology Abnormal [facility] Ovalocytes 1-5 /HPF [facility] Connor Cells 6-10 /HPF [facility] Toxic Granulation Present [facility] Dohle Bodies Present [facility] Blood 08/16/2022 3:36 AM EDT 08/16/2022 3:43 AM EDT Narrative Resulting Agency Comment Spec In Lab Tyler Cobb MD HEMATOLOGY ORDERABLE S Performing Organization Address [facility]/[place] Co de Phone Number [facility] [place] [address] * (ABNORMAL) Differential, Automated (08/16/2022 3:36 AM EDT) Neutrophil % 82.1 % [facility] Neutrophil Absolute 24.49(H) 1.70 - 6.10 x10(3)/mc L [facility] Lymph % 6.3 % [facility] Lymphocytes Abs 1.9 0.9 - 3.2 x10(3)/mc L [facility] Monocyte % 7.4 % [facility]AL [facility] Monocyte Abs 2.2(H) 0.3 - 0.9 x10(3)/mc L [facility] Eos % 0.1 % [facility] Eosinophils Abs 0.0 0.0 - 0.4 x10(3)/[facility] LAB[facility] Basophil % 0.5 % [facility]AL [facility] Baso Absolute 0.2(H) 0.0 - 0.1 x10(3)/ L [facility] Immature Gran % 3.60 % [facility] Comment: Immature granulocytes(IG's)percentage and absolute count will include metamyelocytes, myelocytes, and promyelocytes. Blood smears from CBCs yielding IG's will be scanned manually for concordance. If this scan disagrees with the automated IG or if promyelocytes are noted, a manual differential will be performed. Immature Gran Absolute 1.06(H) 0.00 - 0.04 x10(3)/[facility] LAB[facility] Blood 08/16/2022 3:36 AM EDT 08/16/2022 3:43 AM EDT Narrative Resulting Agency Comment Spec In Lab Tyler Cobb MD HEMATOLOGY ORDERABLE S [facility] [place] [address] * (ABNORMAL) Hemogram (08/16/2022 3:36 AM EDT) White Blood Cell 29.8(H) 4.0 - 9.5 x10(3)/ L [facility] Red Blood Cell 4.63 4.00 - 5.21 x10(6)/[facility] LAB[facility]ATORY Hemoglobin 9.3(L) 11.7 - 15.5 g/dL [facility] Hematocrit 29.8(L) 35.7 - 45.8 % [facility] Mean Cell Volume 64.4(L) 82.6 - 94.4 fL [facility] Mean Cell Hemoglobin 20.1(L) 27.1 - 32.0 pg [facility] Mean Cell Hemoglobin Concentration 31.2(L) 31.7 - 35.0 g/dL [facility] Platelet 295 145 - 357 x10(3)/mc L [facility] RDW Standard Deviation 64.3(H) 37.0 - 46.0 fL [facility] RDW coefficient of variation 29.2(H) 11.5 - 14.1 % [facility] Mean Platelet Volume Not Measured 7.6 - 12.9 fL [facility] NRBC% auto 0.5 % [facility] NRBC Absolute 0.150(H) 0.000 - 0.000 x10(3)/mc L [facility] Blood 08/16/2022 3:36 AM EDT 08/16/2022 3:43 AM EDT Narrative Resulting Agency Comment Spec In Lab Tyler Cobb MD HEMATOLOGY ORDERABLE S [facility] [place] [address] * (ABNORMAL) Troponin (08/16/2022 3:36 AM EDT) Troponin-T, High Sensitivity 316(H) <=14 ng/L [facility] Comment: This patient's troponin T concentration was determined using the [employer] 5th Generation troponin T assay. The 99th percentile for Troponin T for this test is 14 ng/L for females, and 22 ng/L for males. According to the fourth universal definition of myocardial infarction, the term acute myocardial infarction should be used when there is acute myocardial injury with clinical evidence of acute myocardial ischemia and with detection of a rise and/or fall of cardiac troponin values with at least one value above the 99th percentile and at least one of the following: - Symptoms of myocardial ischemia; - New ischemic ECG changes; - Development of pathological Q waves; - Imaging evidence of new loss of viable myocardium or new regional wall motion abnormality in a pattern consistent with an ischemic etiology; - Identification of a coronary thrombus by angiography or autopsy (not for type 2 or 3 MIs) Serial measurement of troponin and the change in troponin concentration over time (delta) is crucial for the diagnosis of acute myocardial infarction. Guidance on the interpretation of the new 5th Generation Troponin T values and the delta troponin value can be found in the [facility] Test Catalog Troponin - [facility] Test Catalog Reference: Fourth [place] Definition of Myocardial Infarction. Journal of the [place] [employer] 2018;72:0964-4227 Blood 08/16/2022 3:36 AM EDT 08/16/2022 3:43 AM EDT Narrative Resulting Agency Comment Spec In Lab Carlos Terry MD CHEMISTRY ORDERABLES Performing Organization Address [facility] de Phone Number [facility] [place] [address] * Heparin (unfractionated) Level (08/16/2022 3:36 AM EDT) UF Heparin 0.30 IU/mL [facility] Comment: Heparin (anti-Xa) levels should be determined in a plasma sample that has been drawn 6 hours after a dose change to approximate steady-state for continuous heparin infusions. Indication specific Heparin (anti-Xa) levels based on order set selection: Acute DVT or PE treatment: 0.3 ? 0.7 IU/mL Thrombosis Prevention (eg. atrial fibrillation, gavin-procedural bridging, mechanical valves): 0.3 ? 0.7 IU/mL Acute Coronary Syndrome: 0.3 ? 0.7 IU/mL Stroke Indications: 0.3 ? 0.5 IU/mL Ultra-low intensity (select indications in cardiac surgery): 0.1 ? 0.3 IU/mL Blood 08/16/2022 3:36 AM EDT 08/16/2022 3:43 AM EDT Narrative Resulting Agency Comment Spec In Lab Carlos Terry MD HEMATOLOGY ORDERABLE S Performing Organization Address [facility]/[place] Co de Phone Number [facility] [place] [address] * (ABNORMAL) Basic Metabolic Panel (non-fasting) (08/16/2022 3:36 AM EDT) Glucose 213(H) 65 - 199 mg/dL [facility] Comment:Diabetes: >=200 mg/d L plus symptoms Blood Urea Nitrogen 37(H) 8 - 18 mg/dL [facility] Creatinine 1.42(H) 0.70 - 1.20 mg/dL [facility] Sodium 138 135 - 145 mmol/L [facility] Potassium 4.1 3.5 - 5.0 mmol/L [facility] LABORATORY Comment: Please note: ??Patients with WBC >100,000 may have falsely elevated Potassium levels. ??For accurate Potassium quantification in these patients send serum separator tube (gold top) for subsequent determinations. ??Contact the Clinical Chemistry Laboratory if there are any questions. Chloride 103 98 - 107 mmol/L [facility] Carbon Dioxide 24 22 - 31 mmol/L [facility] Anion Gap 11 5 - 15 mmol/L [facility] Calcium 8.1(L) 8.5 - 10.5 mg/dL [facility] Est Glomerular Filtration Rate 42(L) >=60 mL/min/1. 73 m?? [facility] Comment: This patient's estimated GFR was [...] and symptoms in addition to eGFR. Blood 08/16/2022 3:36 AM EDT 08/16/2022 3:43 AM EDT Narrative Resulting Agency Comment Spec In Lab Carlos Terry MD CHEMISTRY ORDERABLES [facility] [place] [address] * Phosphorus (08/16/2022 3:36 AM EDT) Phosphorus 2.7 2.5 - 4.5 mg/dL [facility] Blood 08/16/2022 3:36 AM EDT 08/16/2022 3:43 AM EDT Narrative Resulting Agency Comment Spec In Lab Richard Pascal MD CHEMISTRY ORDERABLES [facility] [place] [address] * Magnesium (08/16/2022 3:36 AM EDT) Magnesium 0.99 0.69 - 1.07 mmol/L [facility] Blood 08/16/2022 3:36 AM EDT 08/16/2022 3:43 AM EDT Narrative Resulting Agency Comment Spec In Lab Richard Pascal MD CHEMISTRY ORDERABLES Performing Organization Address [facility] Co de Phone Number [facility] [place] [address] * (ABNORMAL) POCT Glucose (08/16/2022 3:34 AM EDT) Pathologist [facility] Glucose, POC 207(H) 65 - 199 mg/dL [facility] Comment: Supplemental ranges: <140 mg/dL before meals <180 mg/dL all other times of the day Blood 08/16/2022 3:34 AM EDT 08/16/2022 3:34 AM EDT Carlos Terry MD POINT OF CARE TEST O RDERABLES Performing Organization Address [facility]/[place] Co de Phone Number [facility] [place] [address] * EKG 12 Lead (08/16/2022 3:24 AM EDT) Ventricular rate 79 BPM MUSE SYSTEM Atrial Rate 79 BPM MUSE SYSTEM P-R Interval 130 ms MUSE SYSTEM QRS Duration 68 ms MUSE SYSTEM Q-T Interval 396 ms MUSE SYSTEM QTC Calculated (Bezet) 454 ms MUSE SYSTEM Calculated P [place] -26 degrees MUSE SYSTEM Calculated R [place] 70 degrees MUSE SYSTEM Calculated T [place] -123 degrees MUSE SYSTEM INTERPRETATION Normal sinus rhythm Low voltage QRS T wave abnormality, consider inferior ischemia T wave abnormality, consider anterolateral ischemia Abnormal ECG When compared with ECG of 15-AUG-2022 07:36, No significant change was found Confirmed by MD Ty, Jagdeep Gamble ([id number]) on 08/16/2022 11:52:27 AM MUSE SYSTEM 08/16/2022 3:24 AM EDT 08/16/2022 11:52 AM EDT Carlos Terry MD ECG ORDERABLES MUSE SYSTEM * (ABNORMAL) Coox2 (08/16/2022 2:13 AM EDT) pO2, Coox 27 mmHg [facility] Hgb Blood Gas 10.6(L) 11.7 - 15.5 g/dL [facility] Oxyhemoglobin, Coox 51.3 % [facility] Carboxyhemoglo bin, Coox 0.3 % [facility] Comment: Nonsmokers: 0.5-1.5% COHB Smokers: Variable, but usually less than 10% Toxic: 20-30% COHB Lethal: Greater than 60% COHB Methemoglobin, Coox 1.0 <=1.5 % [facility] Source Coox Mixed Venous [facility] Blood 08/16/2022 2:13 AM EDT 08/16/2022 2:13 AM EDT Carlos Terry MD POINT OF CARE TEST O RDERABLES Performing Organization Address City/[facility]/ZIP Co de Phone Number [facility] [place] [address] * POCT Glucose (08/16/2022 1:38 AM EDT) Glucose, POC 165 65 - 199 mg/dL [facility] Comment: Supplemental ranges: <140 mg/dL before meals <180 mg/dL all other times of the day Blood 08/16/2022 1:38 AM EDT 08/16/2022 1:38 AM EDT Carlos Terry MD POINT OF CARE TEST O RDERABLES [facility] [place] [address] * POCT Glucose (08/16/2022 1:01 AM EDT) Glucose, POC 136 65 - 199 mg/dL [facility] Comment: Supplemental ranges: <140 mg/dL before meals <180 mg/dL all other times of the day Blood 08/16/2022 1:01 AM EDT 08/16/2022 1:01 AM EDT Carlos Terry MD POINT OF CARE TEST O RDERAREYMUNDO Performing Organization Address City/[facility]/[place] Co de Phone Number [facility] [place] [address] * (ABNORMAL) Coox2 (08/16/2022 12:04 AM EDT) pO2, Coox 24 mmHg [facility] Hgb Blood Gas 10.5(L) 11.7 - 15.5 g/dL [facility] Oxyhemoglobin, Coox 46.3 % [facility] Carboxyhemoglo bin, Coox 0.3 % [facility] Comment: Nonsmokers: 0.5-1.5% COHB Smokers: Variable, but usually less than 10% Toxic: 20-30% COHB Lethal: Greater than 60% COHB Methemoglobin, Coox 1.2 <=1.5 % [facility] Source Coox Mixed Venous [facility] Blood 08/16/2022 12:0 4 AM EDT 08/16/2022 12:04 AM EDT Carlos Terry MD POINT OF CARE TEST O GABRIELLA Performing Organization Address [facility]/[place] Co de Phone Number [facility] [place] [address] * (ABNORMAL) BLOOD GAS 2 ARTERIAL (08/15/2022 11:59 PM EDT) pH, Arterial 7.46(H) 7.35 - 7.45 [facility] PCO2, Arterial 36 35 - 45 mmHg [facility] PO2, Arterial 75(L) 85 - 104 mmHg [facility] Bicarbonate, Arterial 24.7 20.0 - 26.0 mmol/L [facility] Base Excess, Arterial 0.8 -3.0 - 3.0 mmol/L [facility] Hgb Blood Gas 10.5(L) 11.7 - 15.5 g/dL [facility] Oxyhemoglobin, Arterial 94.3 94.0 - 97.0 % [facility] Carboxyhemoglob in, Arterial 0.2 % [facility] Comment: Nonsmokers: 0.5-1.5% COHB Smokers: Variable, but usually less than 10% Toxic: 20-30% COHB Lethal: Greater than 60% COHB Methemoglobin, Arterial 0.9 <=1.5 % [facility] Na Whole Blood 135 135 - 145 mmol/L [facility] K Whole Blood 4.5 3.5 - 5.0 mmol/L [facility] Comment: Please note: Patients with WBC >100,000 may have falsely elevated Potassium levels. Contact the Clinical Chemistry Laboratory if there are any questions. ICa Whole Blood 1.15 1.15 - 1.33 mmol/L [facility] Comment: Note: ??Total bilirubin higher than 20 mg/dL may lead to falsely low ionized calcium. CL Whole Blood 101 98 - 107 mmol/L [facility] Gluc Whole Bld 165 65 - 199 mg/dL [facility] Comment:Diabetes: >=200 mg/d L plus symptoms. Lactate WB 2.2 0.5 - 2.2 mmol/L [facility] FIO2 Art 25 % [facility] PF Ratio Art 300 [facility] Blood 08/15/2022 11:5 9 PM EDT 08/15/2022 11:59 PM EDT Carlos Terry MD POINT OF CARE TEST O RDERABLES Performing Organization Address City/State/[place] Co de Phone Number [facility] [place] [address] * (ABNORMAL) POCT Glucose (08/15/2022 9:46 PM EDT) Glucose, POC 211(H) 65 - 199 mg/dL [facility] Comment: Supplemental ranges: <140 mg/dL before meals <180 mg/dL all other times of the day Blood 08/15/2022 9:46 PM EDT 08/15/2022 9:46 PM EDT Carlos Terry MD POINT OF CARE TEST O RDERABLES Performing Organization Address [facility]/[place] Co de Phone Number [facility] [place] [address] * Potassium (08/15/2022 9:40 PM EDT) Potassium 3.5 3.5 - 5.0 mmol/L [facility] Comment: result rechecked-CORTNEY Please note: ??Patients with WBC >100,000 may have falsely elevated Potassium levels. ??For accurate Potassium quantification in these patients send serum separator tube (gold top) for subsequent determinations. ??Contact the Clinical Chemistry Laboratory if there are any questions. Blood 08/15/2022 9:40 PM EDT 08/15/2022 9:56 PM EDT Narrative Resulting Agency Comment Spec In Lab Richard Pascal MD CHEMISTRY ORDERABLES Performing Organization Address [facility]/[place] Co de Phone Number [facility] [place] [address] * Vancomycin Level, Random (08/15/2022 9:40 PM EDT) Pathologist [facility] Vancomycin, Random 19.5 mg/L [facility] Comment: This level is for determination of the patient's vancomycin ciky-kiluu-ful-curve (AUC) value. Contact the inpatient pharmacy for interpretation. Blood 08/15/2022 9:40 PM EDT 08/15/2022 9:56 PM EDT Carlos Terry MD CHEMISTRY ORDERABLES Performing Organization Address [facility]/[place] Co de Phone Number [facility] [place] [address] * (ABNORMAL) Coox2 (08/15/2022 8:10 PM EDT) pO2, Coox 24 mmHg [facility] Hgb Blood Gas 10.6(L) 11.7 - 15.5 g/dL [facility] Oxyhemoglobin, Coox 49.8 % [facility] Carboxyhemoglo bin, Coox 0.7 % [facility] Comment: Nonsmokers: 0.5-1.5% COHB Smokers: Variable, but usually less than 10% Toxic: 20-30% COHB Lethal: Greater than 60% COHB Methemoglobin, Coox 0.8 <=1.5 % [facility] Source Coox Mixed Venous [facility] Blood 08/15/2022 8:10 PM EDT 08/15/2022 8:10 PM EDT Carlos Terry MD POINT OF CARE TEST O RDERABLES [facility] [place] [address] * (ABNORMAL) BLOOD GAS 2 ARTERIAL (08/15/2022 8:08 PM EDT) pH, Arterial 7.44 7.35 - 7.45 [facility] PCO2, Arterial 30(L) 35 - 45 mmHg [facility] PO2, Arterial 78(L) 85 - 104 mmHg [facility] Bicarbonate, Arterial 19.7(L) 20.0 - 26.0 mmol/L [facility] Base Excess, Arterial -4.4(L) -3.0 - 3.0 mmol/L [facility] Hgb Blood Gas 9.8(L) 11.7 - 15.5 g/dL [facility] Oxyhemoglobin, Arterial 94.4 94.0 - 97.0 % [facility] Carboxyhemoglob in, Arterial 0.6 % [facility] Comment: Nonsmokers: 0.5-1.5% COHB Smokers: Variable, but usually less than 10% Toxic: 20-30% COHB Lethal: Greater than 60% COHB Methemoglobin, Arterial 0.8 <=1.5 % [facility] Na Whole Blood 135 135 - 145 mmol/L [facility] K Whole Blood 3.1(L) 3.5 - 5.0 mmol/L [facility] Comment: Please note: Patients with WBC >100,000 may have falsely elevated Potassium levels. Contact the Clinical Chemistry Laboratory if there are any questions. ICa Whole Blood 1.08(L) 1.15 - 1.33 mmol/L [facility] Comment: Note: ??Total bilirubin higher than 20 mg/dL may lead to falsely low ionized calcium. CL Whole Blood 107 98 - 107 mmol/L [facility] Gluc Whole Bld 178 65 - 199 mg/dL [facility] Comment:Diabetes: >=200 mg/d L plus symptoms. Lactate WB 1.6 0.5 - 2.2 mmol/L [facility] FIO2 Art 25 % [facility] PF Ratio Art 312 [facility] Blood 08/15/2022 8:08 PM EDT 08/15/2022 8:08 PM EDT Carlos Terry MD POINT OF CARE TEST O RDERABLES Performing Organization Address [facility]/[place] Co de Phone Number [facility] [place] [address] * POCT Glucose (08/15/2022 6:03 PM EDT) Glucose, POC 186 65 - 199 mg/dL [facility] Comment: Supplemental ranges: <140 mg/dL before meals <180 mg/dL all other times of the day Blood 08/15/2022 6:03 PM EDT 08/15/2022 6:03 PM EDT Carlos Terry MD POINT OF CARE TEST O RDERAREYMUNDO Performing Organization Address [facility]/[place] Co de Phone Number [facility] [place] [address] * (ABNORMAL) POCT Glucose (08/15/2022 4:51 PM EDT) Glucose, POC 210(H) 65 - 199 mg/dL [facility] Comment: Supplemental ranges: <140 mg/dL before meals <180 mg/dL all other times of the day Blood 08/15/2022 4:51 PM EDT 08/15/2022 4:51 PM EDT Carlos Terry MD POINT OF CARE TEST O RDERABLES Performing Organization Address [facility]/[place] Co de Phone Number [facility] [place] [address] * Heparin (unfractionated) Level (08/15/2022 4:50 PM EDT) UF Heparin 0.37 IU/mL [facility] Comment: Heparin (anti-Xa) levels should be determined in a plasma sample that has been drawn 6 hours after a dose change to approximate steady-state for continuous heparin infusions. Indication specific Heparin (anti-Xa) levels based on order set selection: Acute DVT or PE treatment: 0.3 ? 0.7 IU/mL Thrombosis Prevention (eg. atrial fibrillation, gavin-procedural bridging, mechanical valves): 0.3 ? 0.7 IU/mL Acute Coronary Syndrome: 0.3 ? 0.7 IU/mL Stroke Indications: 0.3 ? 0.5 IU/mL Ultra-low intensity (select indications in cardiac surgery): 0.1 ? 0.3 IU/mL Blood 08/15/2022 4:50 PM EDT 08/15/2022 4:56 PM EDT Narrative Resulting Agency Comment Spec In Lab Carlos Terry MD HEMATOLOGY ORDERABLE S Performing Organization Address [facility]/[place] Co de Phone Number [facility] [place] [address] * (ABNORMAL) Coox2 (08/15/2022 4:24 PM EDT) pO2, Coox 29 mmHg [facility] Hgb Blood Gas 11.1(L) 11.7 - 15.5 g/dL [facility] Oxyhemoglobin, Coox 57.4 % [facility] Carboxyhemoglo bin, Coox 0.5 % [facility] Comment: Nonsmokers: 0.5-1.5% COHB Smokers: Variable, but usually less than 10% Toxic: 20-30% COHB Lethal: Greater than 60% COHB Methemoglobin, Coox 0.8 <=1.5 % [facility] Source Coox Mixed Venous [facility] Blood 08/15/2022 4:24 PM EDT 08/15/2022 4:24 PM EDT Carlos Terry MD POINT OF CARE TEST O RDERABLES [facility] [place] [address] * Vancomycin Level, Random (08/15/2022 4:20 PM EDT) Vancomycin, Random 23.8 mg/L [facility] Comment: This level is for determination of the patient's vancomycin dwfw-gamsz-izc-curve (AUC) value. Contact the inpatient pharmacy for interpretation. Blood Venous Draw / Unknown 08/15/2022 4:20 PM EDT 08/15/2022 4:26 PM EDT Tyler Cobb MD CHEMISTRY ORDERABLES Performing Organization Address City/[facility]/[place] Co de Phone Number [facility] [place] [address] * (ABNORMAL) Basic Metabolic Panel (non-fasting) (08/15/2022 4:20 PM EDT) Glucose 227(H) 65 - 199 mg/dL [facility] Comment:Diabetes: >=200 mg/d L plus symptoms Blood Urea Nitrogen 39(H) 8 - 18 mg/dL [facility] Creatinine 1.50(H) 0.70 - 1.20 mg/dL [facility] Sodium 138 135 - 145 mmol/L [facility] Potassium 5.0 3.5 - 5.0 mmol/L [facility] Comment: Please note: ??Patients with WBC >100,000 may have falsely elevated Potassium levels. ??For accurate Potassium quantification in these patients send serum separator tube (gold top) for subsequent determinations. ??Contact the Clinical Chemistry Laboratory if there are any questions. Chloride 103 98 - 107 mmol/L [facility] Carbon Dioxide Not Perf 22 - 31 [facility] Comment:Add-on request. Samp le too old to perform test. Anion Gap Unable to Calculate 5 - 15 mmol/L [facility] Calcium 8.4(L) 8.5 - 10.5 mg/dL [facility] Est Glomerular Filtration Rate 39(L) >=60 mL/min/1 .73 m?? [facility] Comment: This patient's estimated [...] and symptoms in addition to eGFR. Blood Venous Draw / Unknown 08/15/2022 4:20 PM EDT 08/15/2022 4:26 PM EDT Narrative Resulting Agency Comment Spec In Lab Tyler Cobb MD CHEMISTRY ORDERABLES Performing Organization Address [facility]/[place] Co de Phone Number [facility] [place] [address] * Potassium (08/15/2022 4:20 PM EDT) Potassium 5.0 3.5 - 5.0 mmol/L [facility] Comment: result rechecked-KT Please note: ??Patients with WBC >100,000 may have falsely elevated Potassium levels. ??For accurate Potassium quantification in these patients send serum separator tube (gold top) for subsequent determinations. ??Contact the Clinical Chemistry Laboratory if there are any questions. Blood 08/15/2022 4:20 PM EDT 08/15/2022 4:26 PM EDT Narrative Resulting Agency Comment Spec In Lab Richard Pascal MD CHEMISTRY ORDERABLES Performing Organization Address City/[facility]/ZIP Co de Phone Number [facility] [place] [address] * (ABNORMAL) Heparin (unfractionated) Level (08/15/2022 4:20 PM EDT) UF Heparin 1.17(Crit ical) IU/mL [facility] Comment: Critical Result called by ?? [facility] Results read back by: ? Lisa Glover at 2022-08-15 16:39:12 Heparin (anti-Xa) levels should be determined in a plasma sample that has been drawn 6 hours after a dose change to approximate steady-state for continuous heparin infusions. Indication specific Heparin (anti-Xa) levels based on order set selection: Acute DVT or PE treatment: 0.3 ? 0.7 IU/mL Thrombosis Prevention (eg. atrial fibrillation, gavin-procedural bridging, mechanical valves): 0.3 ? 0.7 IU/mL Acute Coronary Syndrome: 0.3 ? 0.7 IU/mL Stroke Indications: 0.3 ? 0.5 IU/mL Ultra-low intensity (select indications in cardiac surgery): 0.1 ? 0.3 IU/mL Blood 08/15/2022 4:20 PM EDT 08/15/2022 4:26 PM EDT Narrative Resulting Agency Comment Spec In Lab Carlos Terry MD HEMATOLOGY ORDERABLE S Performing Organization Address City/State/[place] Co de Phone Number [facility] [place] [address] * (ABNORMAL) BLOOD GAS 2 ARTERIAL (08/15/2022 4:16 PM EDT) pH, Arterial 7.38 7.35 - 7.45 [facility] PCO2, Arterial 36 35 - 45 mmHg [facility] PO2, Arterial 78(L) 85 - 104 mmHg [facility] Bicarbonate, Arterial 20.8 20.0 - 26.0 mmol/L [facility] Base Excess, Arterial -4.2(L) -3.0 - 3.0 mmol/L [facility] Hgb Blood Gas 11.0(L) 11.7 - 15.5 g/dL [facility] Oxyhemoglobin, Arterial 94.2 94.0 - 97.0 % [facility] Carboxyhemoglob in, Arterial 0.5 % [facility] Comment: Nonsmokers: 0.5-1.5% COHB Smokers: Variable, but usually less than 10% Toxic: 20-30% COHB Lethal: Greater than 60% COHB Methemoglobin, Arterial 0.8 <=1.5 % [facility] Na Whole Blood 135 135 - 145 mmol/L [facility] K Whole Blood 4.5 3.5 - 5.0 mmol/L [facility] Comment: Please note: Patients with WBC >100,000 may have falsely elevated Potassium levels. Contact the Clinical Chemistry Laboratory if there are any questions. ICa Whole Blood 1.14(L) 1.15 - 1.33 mmol/L [facility] Comment: Note: ??Total bilirubin higher than 20 mg/dL may lead to falsely low ionized calcium. CL Whole Blood 105 98 - 107 mmol/L [facility] Gluc Whole Bld 210(H) 65 - 199 mg/dL [facility] Comment:Diabetes: >=200 mg/d L plus symptoms. Lactate WB 1.8 0.5 - 2.2 mmol/L [facility] FIO2 Art 30 % [facility] PF Ratio Art 260 [facility] Blood 08/15/2022 4:16 PM EDT 08/15/2022 4:16 PM EDT Carlos Terry MD POINT OF CARE TEST O RDAV Performing Organization Address [facility]/[place] Co de Phone Number [facility] [place] [address] * POCT Glucose (08/15/2022 2:01 PM EDT) Glucose, POC 94 65 - 199 mg/dL [facility] Comment: Supplemental ranges: <140 mg/dL before meals <180 mg/dL all other times of the day Blood 08/15/2022 2:01 PM EDT 08/15/2022 2:01 PM EDT Carlos Terry MD POINT OF CARE TEST O RDERABLES [facility] [place] [address] * POCT Glucose (08/15/2022 1:16 PM EDT) Glucose, POC 89 65 - 199 mg/dL [facility] Comment: Supplemental ranges: <140 mg/dL before meals <180 mg/dL all other times of the day Blood 08/15/2022 1:16 PM EDT 08/15/2022 1:16 PM EDT Carlos Teryr MD POINT OF CARE TEST O RDERABLES Performing Organization Address [facility]/[place] Co de Phone Number [facility] [place] [address] * POCT Glucose (08/15/2022 1:00 PM EDT) Glucose, POC 69 65 - 199 mg/dL [facility] Comment: Supplemental ranges: <140 mg/dL before meals <180 mg/dL all other times of the day Blood 08/15/2022 1:00 PM EDT 08/15/2022 1:00 PM EDT Carlos Terry MD POINT OF CARE TEST O RDERAREYMUNDO Performing Organization Address [facility]/[place] Co de Phone Number [facility] [place] [address] * Urine culture Indwelling Catheter Urine; Other; sepsis, bacteria on UA (08/15/2022 12:25 PM EDT) Urine Culture 1,000-9,000 cfu/ml Insignificant growth [facility] Indwelling Catheter Urine 08/15/2022 12:25 PM EDT 08/15/2022 12:48 PM EDT Comment:Patient has fever an d at least one of the following clinical symptoms of urinary tract infection (UTI) or additional considerations->Other Narrative Resulting Agency Comment Spec In Lab Carlos Terry MD MICROBIOLOGY - GENER AL ORDERABLES Performing Organization Address [facility]/[place] Co de Phone Number [facility] [place] [address] * (ABNORMAL) BLOOD GAS 2 ARTERIAL (08/15/2022 12:18 PM EDT) pH, Arterial 7.37 7.35 - 7.45 [facility] PCO2, Arterial 39 35 - 45 mmHg [facility] PO2, Arterial 92 85 - 104 mmHg [facility] Bicarbonate, Arterial 22.2 20.0 - 26.0 mmol/L [facility] Base Excess, Arterial -3.0 -3.0 - 3.0 mmol/L [facility] Hgb Blood Gas 10.8(L) 11.7 - 15.5 g/dL [facility] Oxyhemoglobin, Arterial 95.6 94.0 - 97.0 % [facility] Carboxyhemoglob in, Arterial 0.5 % [facility] Comment: Nonsmokers: 0.5-1.5% COHB Smokers: Variable, but usually less than 10% Toxic: 20-30% COHB Lethal: Greater than 60% COHB Methemoglobin, Arterial 0.9 <=1.5 % [facility] Na Whole Blood 137 135 - 145 mmol/L [facility] K Whole Blood 4.0 3.5 - 5.0 mmol/L [facility] Comment: Please note: Patients with WBC >100,000 may have falsely elevated Potassium levels. Contact the Clinical Chemistry Laboratory if there are any questions. ICa Whole Blood 1.15 1.15 - 1.33 mmol/L [facility] Comment: Note: ??Total bilirubin higher than 20 mg/dL may lead to falsely low ionized calcium. CL Whole Blood 107 98 - 107 mmol/L [facility] Gluc Whole Bld 57(L) 65 - 199 mg/dL [facility] Comment:Diabetes: >=200 mg/d L plus symptoms. Lactate WB 1.5 0.5 - 2.2 mmol/L [facility] FIO2 Art 30 % [facility] PF Ratio Art 307 [facility] Blood 08/15/2022 12:1 8 PM EDT 08/15/2022 12:18 PM EDT Carlos Terry MD POINT OF CARE TEST O RDERABLES [facility] [place] [address] * (ABNORMAL) Coox2 (08/15/2022 12:13 PM EDT) pO2, Coox 30 mmHg [facility] Hgb Blood Gas 11.1(L) 11.7 - 15.5 g/dL [facility] Oxyhemoglobin, Coox 59.4 % [facility] Carboxyhemoglo bin, Coox 0.4 % [facility] Comment: Nonsmokers: 0.5-1.5% COHB Smokers: Variable, but usually less than 10% Toxic: 20-30% COHB Lethal: Greater than 60% COHB Methemoglobin, Coox 0.9 <=1.5 % [facility] Source Coox Mixed Venous [facility] Blood 08/15/2022 12:1 3 PM EDT 08/15/2022 12:13 PM EDT Carlos Terry MD POINT OF CARE TEST O RDERAREYMUNDO Performing Organization Address City/[facility] Co de Phone Number [facility] [place], [place] [address] * POCT Glucose (08/15/2022 11:59 AM EDT) Glucose, POC 83 65 - 199 mg/dL [facility] Comment: Supplemental ranges: <140 mg/dL before meals <180 mg/dL all other times of the day Blood 08/15/2022 11:5 9 AM EDT 08/15/2022 11:59 AM EDT Carlos Terry MD POINT OF CARE TEST O GABRIELLA Performing Organization Address City/[facility] Co de Phone Number [facility] [place] [address] * COVID-19 PCR (08/15/2022 11:50 AM EDT) SARS-CoV-2 RNA (Rapid) Not Detected Not Detected [facility] Comment: This result should be interpreted in combination with the clinical observations, patient history and epidemiological information. For testing of asymptomatic individuals, assay performance characteristics and clinical utility have not been evaluated. Testing for SARS-CoV-2 (Severe acute respiratory syndrome coronavirus 2, formerly known as 2019 novel coronavirus or 2019-nCoV) to aid in the diagnosis of COVID-19 is performed using the Simplexa COVID-19 Direct Assay by [employer] as authorized by the FDA issued Emergency Use Authorization (EUA). This assay is intended for In-vitro Diagnostic (IVD) use with nasopharyngeal swabs collected from individuals meeting the CDC criteria for testing. The assay is performed based on the instructions for use and additional guidance provided by the FDA. Testing is performed in the Microbiology Laboratory within the Department of Pathology and Laboratory Medicine at [facility], certified under the Clinical Laboratory Improvement Amendments of 1988 (CLIA), 42 U.S.C. section 263a, to perform high complexity tests. Assay performance has been verified according to clinical laboratory regulatory requirements. Test results are provided above. A result of Not Detected indicates that the viral RNA target is not present but does not preclude SARS-CoV-2 infection. False negative results may occur if a specimen is improperly collected, transported or handled; if amplification inhibitors are present; or if inadequate numbers of viral particles are present in the specimen. A result of Detected suggests a current or recent infection and the patient is presumed to be infected. Positive and negative predictive values for this test are highly dependent on disease prevalence. A result of Invalid indicates the inability to conclusively determine the presence or absence of SARS-CoV-2 RNA in the sample which can be due to a variety of factors. Recollection is recommended in the case of an invalid result. CDC COVID-19 criteria for testing on human specimens and clinical management guidance information are available at the CDC Coronavirus Disease 2019 (COVID-19) webpage under Information for Healthcare Professionals (https://www.cdc.gov/coronavirus/2019-ncov/hcp/index.html). Additional information about this and other EUA tests can be found in provider and patient fact sheets at the following FDA website: https://www.fda.gov/medical-devices/hcfdpujahbr-fzmgldx-7527-bdkvm-03-rxpxuirsa- use-a oupavjccstquu-fpgzrtf-uvrdbrm/rwnmo-mqydivjgslr-axuy SARS-CoV-2 Source [employer] [facility] Nasopharyngeal Swab 08/16/19 11:50 AM EDT 08/15/2022 12:36 PM EDT Comment:Specimen Source->Wili opharyngeal Swab Narrative Resulting Agency Comment Spec In Lab Carlos Terry MD MICROBIOLOGY - GENER AL ORDERABLES Performing Organization Address [facility] Co de Phone Number [facility] [place] [address] * POCT Glucose (08/15/2022 11:22 AM EDT) Glucose, POC 84 65 - 199 mg/dL [facility] Comment: Supplemental ranges: <140 mg/dL before meals <180 mg/dL all other times of the day Blood 08/15/2022 11:2 2 AM EDT 08/15/2022 11:22 AM EDT Carlos Terry MD POINT OF CARE TEST O RDERABLES Performing Organization Address [facility] Co de Phone Number [facility] [place] [address] * POCT Glucose (08/15/2022 10:13 AM EDT) Glucose, POC 123 65 - 199 mg/dL [facility] Comment: Supplemental ranges: <140 mg/dL before meals <180 mg/dL all other times of the day Blood 08/15/2022 10:1 3 AM EDT 08/15/2022 10:13 AM EDT Carlos Terry MD POINT OF CARE TEST O RDERABLES Performing Organization Address [facility] Co de Phone Number [facility] [place] [address] * ECHO COMPLETE (08/15/2022 10:04 AM EDT) Anatomical Region Laterality Modality Cardiac Other 08/15/2022 9:38 AM EDT Narrative 08/15/2022 10:34 AM EDT ? Echocardiogram Report Name: ISHAN IRVING ? Study Date: 08/15/2022 09:38 AMBP: 102/54 mmHg ? Patient Location: 0000 ? HR: 99 : 1960 ? Height: 152 cm ? Account: [id number] Age: 62 yrs ? Weight: 69 kg Gender: Female ?BSA: 1.7 m2 Ordering Physician: HARRISON^CARLOS^M Referring Physician: NIURKA AYALA Performed By: Raissa Bhakta RDCS Reason For Study: Septic shock Exam Location: [facility]. Interpretation Summary -Left ventricle is mildly dilated. [...] today's date, LVEF is slightly improved. Procedure Complete-45945. Satisfactory quality. There is normal sinus rhythm. [...] ?LVOT diam: 1.9 cm Doppler TR max gurvinder: 229.3 cm/sec LV V1 VTI: 9.6 cm LVOT max Velocity: 75.7 cm/sec MV E max gurvinder: 50.5 cm/sec MV A max gurvinder: 90.0 cm/sec MV E/A: 0.56 MV dec time: 0.10 sec Lat Peak E' Gurvinder: 5.4 cm/sec E/ e' (lat): 9.3 Med Peak E' Gurvinder: 4.8 cm/sec E/e' (med): 10.6 E/e' Average: 10.0 I ?WMSI = 1.94 ? % Normal = 31 ?Segments ??Size X - Cannot ?2 - ?4 - ?1-2 ? small Interpret ?1 - Normal ?? Hypokinetic 3 - Akinetic Dyskinetic ?? 3-5 ? moderate 5 - ? 6-14 ?large Aneurysmal ?15-16 ?? diffuse Procedure Note Carlos Terry MD - 08/15/2022 Echocardiogram Report Name: ARISTIDES ISHAN [place] Study Date: 309:38 AMBP: 102/54 mmHg Patient Location: [id number] HR: 99 : 1960 Height: 152 cm Account: [id number] Age: 62 yrs Weight: 69 kg Gender: Female BSA: 1.7 m2 Ordering Physician: HARRISON^DAVIDM Referring Physician: NIURKA AYALA Performed By: Raissa Bhakta RDCS Reason For Study: Septic shock Exam Location: [facility]. Interpretation Summary -Left ventricle is mildly dilated. [...] today's date, LVEF is slightly improved. Procedure Complete-[id number]. Satisfactory quality. There is normal sinus rhythm. [...] LVOT diam: 1.9 cm Doppler TR max gurvinder: 229.3 cm/sec LV V1 VTI: 9.6 cm LVOT max Velocity: 75.7 cm/sec MV E max gurvinder: 50.5 cm/sec MV A max gurvinder: 90.0 cm/sec MV E/A: 0.56 MV dec time: 0.10 sec Lat Peak E' Gurvinder: 5.4 cm/sec E/ e' (lat): 9.3 Med Peak E' Gurvinder: 4.8 cm/sec E/e' (med): 10.6 E/e' Average: 10.0 I WMSI = 1.94 % Normal = 31 SegmentsSize X - Cannot 2 - 4 - 1-2small Interpret 1 - Normal Hypokinetic 3 - Akinetic Dyskinetic 3-5moderate 5 - 6-14large Aneurysmal 15-16diffuse Carlos Terry MD ECHO ORDERABLES * (ABNORMAL) Hepatic Function Panel (08/15/2022 9:50 AM EDT) Protein, Total 5.6(L) 6.1 - 8.0 g/dL [facility] Albumin 2.4(L) 3.2 - 5.2 g/dL [facility] Aspartate Aminotransferase 21 0 - 30 unit/L [facility] Alanine Aminotransferase 12 0 - 30 unit/L [facility] Alkaline Phosphatase 102 35 - 105 unit/L [facility] Bilirubin, Total <0.2(L) 0.2 - 1.3 mg/dL [facility] Bilirubin, Direct 0.1 0.0 - 0.3 mg/dL [facility] Blood Venous Draw / Unknown 08/15/2022 9:50 AM EDT 08/15/2022 10:04 AM EDT Narrative Resulting Agency Comment Spec In Lab Jigar Streeter MD CHEMISTRY ORDERABLES Performing Organization Address City/[facility] Co de Phone Number [facility] [place] [address] * (ABNORMAL) Potassium (08/15/2022 9:50 AM EDT) Potassium 3.2(L) 3.5 - 5.0 mmol/L [facility] Comment: Please note: ??Patients with WBC >100,000 may have falsely elevated Potassium levels. ??For accurate Potassium quantification in these patients send serum separator tube (gold top) for subsequent determinations. ??Contact the Clinical Chemistry Laboratory if there are any questions. Blood 08/15/2022 9:50 AM EDT 08/15/2022 9:59 AM EDT Narrative Resulting Agency Comment Spec In Lab Richard Pascal MD CHEMISTRY ORDERABLES Performing Organization Address [facility] Co de Phone Number [facility] [place] [address] * (ABNORMAL) Troponin (08/15/2022 9:50 AM EDT) Pathologist [facility] Troponin-T, High Sensitivity 575(H) <=14 ng/L [facility] Comment: This patient's troponin T concentration was determined using the [employer] 5th Generation troponin T assay. The 99th percentile for Troponin T for this test is 14 ng/L for females, and 22 ng/L for males. According to the fourth universal definition of myocardial infarction, the term acute myocardial infarction should be used when there is acute myocardial injury with clinical evidence of acute myocardial ischemia and with detection of a rise and/or fall of cardiac troponin values with at least one value above the 99th percentile and at least one of the following: - Symptoms of myocardial ischemia; - New ischemic ECG changes; - Development of pathological Q waves; - Imaging evidence of new loss of viable myocardium or new regional wall motion abnormality in a pattern consistent with an ischemic etiology; - Identification of a coronary thrombus by angiography or autopsy (not for type 2 or 3 MIs) Serial measurement of troponin and the change in troponin concentration over time (delta) is crucial for the diagnosis of acute myocardial infarction. Guidance on the interpretation of the new 5th Generation Troponin T values and the delta troponin value can be found in the [facility] Test Catalog Troponin - [facility] Test Catalog Reference: Fourth [place] Definition of Myocardial Infarction. Journal of the [place] [employer] 2018;72:3190-1033 Blood 08/15/2022 9:50 AM EDT 08/15/2022 9:59 AM EDT Narrative Resulting Agency Comment Spec In Lab Carlos Terry MD CHEMISTRY ORDERABLES Performing Organization Address City/[facility] [address] * Heparin (unfractionated) Level (08/15/2022 8:50 AM EDT) UF Heparin 0.51 IU/mL [facility] Comment: Heparin (anti-Xa) levels should be determined in a plasma sample that has been drawn 6 hours after a dose change to approximate steady-state for continuous heparin infusions. Indication specific Heparin (anti-Xa) levels based on order set selection: Acute DVT or PE treatment: 0.3 ? 0.7 IU/mL Thrombosis Prevention (eg. atrial fibrillation, gavin-procedural bridging, mechanical valves): 0.3 ? 0.7 IU/mL Acute Coronary Syndrome: 0.3 ? 0.7 IU/mL Stroke Indications: 0.3 ? 0.5 IU/mL Ultra-low intensity (select indications in cardiac surgery): 0.1 ? 0.3 IU/mL Blood 08/15/2022 8:50 AM EDT 08/15/2022 8:58 AM EDT Narrative Resulting Agency Comment Spec In Lab Carlos Terry MD HEMATOLOGY ORDERABLE S Performing Organization Address City/[facility]/ZIP Co de Phone Number [facility] [place] [address] * (ABNORMAL) BLOOD GAS 2 ARTERIAL (08/15/2022 8:49 AM EDT) pH, Arterial 7.36 7.35 - 7.45 [facility] PCO2, Arterial 37 35 - 45 mmHg [facility] PO2, Arterial 78(L) 85 - 104 mmHg [facility] Bicarbonate, Arterial 20.3 20.0 - 26.0 mmol/L [facility] Base Excess, Arterial -5.1(L) -3.0 - 3.0 mmol/L [facility] Hgb Blood Gas 11.3(L) 11.7 - 15.5 g/dL [facility] Oxyhemoglobin, Arterial 93.8(L) 94.0 - 97.0 % [facility] Carboxyhemoglob in, Arterial 0.5 % [facility] Comment: Nonsmokers: 0.5-1.5% COHB Smokers: Variable, but usually less than 10% Toxic: 20-30% COHB Lethal: Greater than 60% COHB Methemoglobin, Arterial 0.8 <=1.5 % [facility] Na Whole Blood 137 135 - 145 mmol/L [facility] K Whole Blood 4.0 3.5 - 5.0 mmol/L [facility] Comment: Please note: Patients with WBC >100,000 may have falsely elevated Potassium levels. Contact the Clinical Chemistry Laboratory if there are any questions. ICa Whole Blood 1.21 1.15 - 1.33 mmol/L [facility] Comment: Note: ??Total bilirubin higher than 20 mg/dL may lead to falsely low ionized calcium. CL Whole Blood 106 98 - 107 mmol/L [facility] Gluc Whole Bld 106 65 - 199 mg/dL [facility] Comment:Diabetes: >=200 mg/d L plus symptoms. Lactate WB 2.9(H) 0.5 - 2.2 mmol/L [facility] FIO2 Art 30 % [facility] PF Ratio Art 260 [facility] Blood 08/15/2022 8:49 AM EDT 08/15/2022 8:49 AM EDT Carlos Terry MD POINT OF CARE TEST O RDERABLES [facility] [address] [place] [address] * XR Abdomen 1 view (Generic) (08/15/2022 8:33 AM EDT) Anatomical Region Laterality Modality Abdomen N/A Digital Radiogra phy Impressions 08/15/2022 9:05 AM EDT The enteric tube sidehole is not definitively subdiaphragmatic. Recommend advancement. Preliminary report signed by: Carlos Wolff at 08/15/2022 9:00 AM I have personally reviewed the image(s) and the resident's interpretation and agree with the findings, Liliane Adams MD at 08/15/2022 9:05 AM Thank you for letting us participate in the care of this patient. ??If you are a health care provider and have any questions regarding this report, please contact the number below. ??For patients who have questions please contact the health acute care physician that requested your imaging first. ? Electronically signed by: Liliane Adams MD, [facility] ([phone]), at 08/15/2022 9:05 AM Narrative 08/15/2022 9:05 AM EDT EXAMINATION: XR ABDOMEN 1 VIEW (GENERIC) CLINICAL HISTORY: 62 yo F w/ shock, confirm NG tube placement TECHNIQUE: Single radiograph of the lower chest and upper abdomen for purposes of enteric tube verification and otherwise nondiagnostic. The lower abdomen is excluded from [id number]. COMPARISON: Abdominal radiograph 08/15/2022 FINDINGS: * ??An enteric tube courses below the diaphragm with tip in the expected region of the stomach. Sidehole is not definitively subdiaphragmatic. * ??Unchanged position of right neck central catheter terminating over the region of the pulmonary trunk. * ??Endotracheal tube terminates 3.1 cm above the consuelo. Patchy and hazy bilateral airspace opacities compatible with ongoing pulmonary edema. Procedure Note Liliane Adams MD - 08/15/2022 EXAMINATION: XR ABDOMEN 1 VIEW (GENERIC) CLINICAL HISTORY: 62 yo F w/ shock, confirm NG tube placement TECHNIQUE: Single radiograph of the lower chest and upper abdomen for purposes ofenteric tube verification and otherwise nondiagnostic. The lower abdomen isexcluded from [id number]. COMPARISON: Abdominal radiograph 08/15/2022 FINDINGS: * An enteric tube courses below the diaphragm with tip in the expectedregion of the stomach. Sidehole is not definitively subdiaphragmatic. * Unchanged position of right neck central catheter terminating over theregion of the pulmonary trunk. * Endotracheal tube terminates 3.1 cm above the consuelo. Patchy and hazy bilateral airspace opacities compatible with ongoingpulmonary edema. IMPRESSION The enteric tube sidehole is not definitively subdiaphragmatic.Recommend advancement. Preliminary report signed by: Carlos Wolff at 08/15/2022 9:00 AM I have personally reviewed the image(s) and the resident's interpretationand agree with the findings, Liliane Adams MD at 08/15/2022 9:05 AM Thank you for letting us participate in the care of this patient. If youare a health care provider and have any questions regarding this report,please contact the number below. For patients who have questions please contactthe health acute care physician that requested your imaging first. Electronically signed by: Liliane Adams MD, [facility]([phone]), at 08/15/2022 9:05 AM Carlos Terry MD IMG DX ORDERABLES * POCT Glucose (08/15/2022 7:51 AM EDT) Glucose, POC 189 65 - 199 mg/dL [facility] Comment: Supplemental ranges: <140 mg/dL before meals <180 mg/dL all other times of the day Blood 08/15/2022 7:51 AM EDT 08/15/2022 7:51 AM EDT Carlos Terry MD POINT OF CARE TEST O RDERABLES [facility] [place] [address] * Lower Respiratory Culture Sputum Induced (08/15/2022 7:40 AM EDT) Lower Respiratory Culture Rare normal upper respiratory wiley [facility] Gram Stain Many Neutrophils Few squamous epithelial cells Rare mixed bacterial morphotypes suggestive of normal upper respiratory wiley [facility] Sputum Induced 08/15/2022 7: 40 AM EDT 08/15/2022 10:13 AM EDT Narrative Resulting Agency Comment Spec In Lab Carlos Terry MD MICROBIOLOGY - GENER AL ORDERABLES [facility] [address] [place] [address] * EKG 12 Lead (08/15/2022 7:36 AM EDT) Ventricular rate 106 BPM MUSE SYSTEM Atrial Rate 106 BPM MUSE SYSTEM P-R Interval 128 ms MUSE SYSTEM QRS Duration 70 ms MUSE SYSTEM Q-T Interval 362 ms MUSE SYSTEM QTC Calculated (Bezet) 480 ms MUSE SYSTEM Calculated P [place] 59 degrees MUSE SYSTEM Calculated R [place] 94 degrees MUSE SYSTEM Calculated T [place] 160 degrees MUSE SYSTEM INTERPRETATION Sinus tachycardia Rightward axis Low voltage QRS Septal infarct (cited on or before 14-AUG-2022) T wave abnormality, consider anterolateral ischemia Abnormal ECG When compared with ECG of 14-AUG-2022 23:19, Lateral T wave inversion is more prounced QRS axis Shifted right Confirmed by MD Harrison, Carlos Hand ([id number]) on 08/17/2022 6:16:58 PM MUSE SYSTEM 08/15/2022 7:36 AM EDT 08/17/2022 6:16 PM EDT Carlos Terry MD ECG ORDERABLES Performing Organization Address City/[facility]/ZIP Co de Phone Number M[facility] SYSTEM * XR Abdomen 1 view (Generic) (08/15/2022 6:38 AM EDT) Anatomical Region Laterality Modality Abdomen N/A Digital Radiogra phy Impressions 08/15/2022 6:41 AM EDT Nonspecific/nondiagnostic appearance of the abdomen, with large stool burden in the RIGHT hemiabdomen and pelvis. Thank you for letting us participate in the care of this patient. ??If you are a health care provider and have any questions regarding this report, please contact the number below. ??For patients who have questions please contact the health acute care physician that requested your imaging first. ? Narrative 08/15/2022 6:41 AM EDT EXAMINATION: XR ABDOMEN 1 VIEW (GENERIC) CLINICAL HISTORY: 62 yo F w/ rising lactate, assess for acute intra-abdominal process TECHNIQUE: Supine frontal abdomen COMPARISON: None FINDINGS: Large stool burden within the RIGHT hemiabdomen and pelvis. Overall paucity with scattered bowel air noted within the LEFT hemiabdomen. No abnormally air-dilated bowel loops identified. Cannot assess for potential air fluid levels and or intra-abdominal free air given supine positioning. Lung findings as reported on earlier same day chest radiograph. Procedure Note Davi Terry MD - 08/15/2022 EXAMINATION: XR ABDOMEN 1 VIEW (GENERIC) CLINICAL HISTORY: 62 yo F w/ rising lactate, assess for acuteintra-abdominal process TECHNIQUE: Supine frontal abdomen COMPARISON: None FINDINGS: Large stool burden within the RIGHT hemiabdomen and pelvis. Overallpaucity with scattered bowel air noted within the LEFT hemiabdomen. No abnormallyair-dilated bowel loops identified. Cannot assess for potential air fluid levels andor intra-abdominal free air given supine positioning. Lung findings asreported on earlier same day chest radiograph. IMPRESSION Nonspecific/nondiagnostic appearance of the abdomen, with large stoolburden in the RIGHT hemiabdomen and pelvis. Thank you for letting us participate in the care of this patient. If youare a health care provider and have any questions regarding this report,please contact the number below. For patients who have questions please contactthe health acute care physician that requested your imaging first. Carlos Terry MD IMG DX ORDERABLES * (ABNORMAL) POCT Glucose (08/15/2022 6:38 AM EDT) Pathologist [facility] Glucose, POC 219(H) 65 - 199 mg/dL [facility] Comment: Supplemental ranges: <140 mg/dL before meals <180 mg/dL all other times of the day Blood 08/15/2022 6:38 AM EDT 08/15/2022 6:38 AM EDT Carlos Terry MD POINT OF CARE TEST O RDERABLES Performing Organization Address City/[facility]/ZIP Co de Phone Number [facility] [place] [address] * (ABNORMAL) Lactate, whole blood, send to lab ([facility] (08/15/2022 5:55 AM EDT) [facility] Lactate WB 3.1(H) 0.5 - 2.2 mmol/L [facility] Blood 08/15/2022 5:55 AM EDT 08/15/2022 6:02 AM EDT Narrative Resulting Agency Comment Spec In Lab Carlos Terry MD CHEMISTRY ORDERABLES [facility] [place] [address] * (ABNORMAL) Coox2 (08/15/2022 5:33 AM EDT) pO2, Coox 34 mmHg [facility] Hgb Blood Gas 11.1(L) 11.7 - 15.5 g/dL [facility] Oxyhemoglobin, Coox 63.7 % [facility] Carboxyhemoglo bin, Coox 0.6 % [facility] Comment: Nonsmokers: 0.5-1.5% COHB Smokers: Variable, but usually less than 10% Toxic: 20-30% COHB Lethal: Greater than 60% COHB Methemoglobin, Coox 1.0 <=1.5 % [facility] Source Coox Mixed Venous [facility] Blood 08/15/2022 5:33 AM EDT 08/15/2022 5:33 AM EDT Carlos Terry MD POINT OF CARE TEST O RDERABLES [facility] [address] [place] [address] * (ABNORMAL) BLOOD GAS 2 ARTERIAL (08/15/2022 5:31 AM EDT) pH, Arterial 7.30(L) 7.35 - 7.45 [facility] PCO2, Arterial 41 35 - 45 mmHg [facility] PO2, Arterial 117(H) 85 - 104 mmHg [facility] Bicarbonate, Arterial 19.6(L) 20.0 - 26.0 mmol/L [facility] Base Excess, Arterial -6.9(L) -3.0 - 3.0 mmol/L [facility] Hgb Blood Gas 11.2(L) 11.7 - 15.5 g/dL [facility] Oxyhemoglobin, Arterial 96.8 94.0 - 97.0 % [facility] Carboxyhemoglob in, Arterial 0.2 % [facility] Comment: Nonsmokers: 0.5-1.5% COHB Smokers: Variable, but usually less than 10% Toxic: 20-30% COHB Lethal: Greater than 60% COHB Methemoglobin, Arterial 0.8 <=1.5 % [facility] Na Whole Blood 140 135 - 145 mmol/L [facility] K Whole Blood 2.7(Critic al) 3.5 - 5.0 mmol/L [facility] Comment: Noted by electrical and instrument mechanic. Please note: Patients with WBC >100,000 may have falsely elevated Potassium levels. Contact the Clinical Chemistry Laboratory if there are any questions. ICa Whole Blood 1.16 1.15 - 1.33 mmol/L [facility] Comment: Note: ??Total bilirubin higher than 20 mg/dL may lead to falsely low ionized calcium. CL Whole Blood 109(H) 98 - 107 mmol/L [facility] Gluc Whole Bld 277(H) 65 - 199 mg/dL [facility] Comment:Diabetes: >=200 mg/d L plus symptoms. Lactate WB 3.6(H) 0.5 - 2.2 mmol/L [facility] FIO2 Art 40 % [facility] PF Ratio Art 292 [facility] Blood 08/15/2022 5:31 AM EDT 08/15/2022 5:31 AM EDT Carlos Terry MD POINT OF CARE TEST O GABRIELLA Performing Organization Address City/[facility]/[place] Co de Phone Number [facility] [place] [address] * (ABNORMAL) POCT Glucose (08/15/2022 5:00 AM EDT) Glucose, POC 280(H) 65 - 199 mg/dL [facility] Comment: Supplemental ranges: <140 mg/dL before meals <180 mg/dL all other times of the day Blood 08/15/2022 5:00 AM EDT 08/15/2022 5:00 AM EDT Carlos Terry MD POINT OF CARE TEST O GABRIELLA Performing Organization Address City/[facility] Co de Phone Number [facility] [place] [address] * (ABNORMAL) BLOOD GAS 2 ARTERIAL (08/15/2022 3:11 AM EDT) pH, Arterial 7.25(Criti tonya) 7.35 - 7.45 [facility] Comment:Noted by electrical and instrument mechanic. PCO2, Arterial 38 35 - 45 mmHg [facility] PO2, Arterial 112(H) 85 - 104 mmHg [facility] Bicarbonate, Arterial 16.0(L) 20.0 - 26.0 mmol/L [facility] Base Excess, Arterial -11.2(L) -3.0 - 3.0 mmol/L [facility] Hgb Blood Gas 11.0(L) 11.7 - 15.5 g/dL [facility] Oxyhemoglobin, Arterial 96.4 94.0 - 97.0 % [facility] Carboxyhemoglob in, Arterial 0.1 % [facility] Comment: Nonsmokers: 0.5-1.5% COHB Smokers: Variable, but usually less than 10% Toxic: 20-30% COHB Lethal: Greater than 60% COHB Methemoglobin, Arterial 0.9 <=1.5 % [facility] Na Whole Blood 138 135 - 145 mmol/L [facility] K Whole Blood 3.4(L) 3.5 - 5.0 mmol/L [facility] Comment: Please note: Patients with WBC >100,000 may have falsely elevated Potassium levels. Contact the Clinical Chemistry Laboratory if there are any questions. ICa Whole Blood 1.16 1.15 - 1.33 mmol/L [facility] Comment: Note: ??Total bilirubin higher than 20 mg/dL may lead to falsely low ionized calcium. CL Whole Blood 106 98 - 107 mmol/L [facility] Gluc Whole Bld 324(H) 65 - 199 mg/dL [facility] Comment:Diabetes: >=200 mg/d L plus symptoms. Lactate WB 1.9 0.5 - 2.2 mmol/L [facility] FIO2 Art 40 % [facility] PF Ratio Art 280 [facility] Blood 08/15/2022 3:11 AM EDT 08/15/2022 3:11 AM EDT Carlos Terry MD POINT OF CARE TEST O RDERABLES [facility] [place] [address] * (ABNORMAL) Hepatic Function Panel (08/15/2022 3:05 AM EDT) Protein, Total 5.6(L) 6.1 - 8.0 g/dL [facility] Albumin 2.4(L) 3.2 - 5.2 g/dL [facility] Aspartate Aminotransferase 25 0 - 30 unit/L [facility] Alanine Aminotransferase 13 0 - 30 unit/L [facility] Alkaline Phosphatase 99 35 - 105 unit/L [facility] Bilirubin, Total 0.2 0.2 - 1.3 mg/dL [facility] Bilirubin, Direct 0.1 0.0 - 0.3 mg/dL [facility] Blood Venous Draw / Unknown 08/15/2022 3:05 AM EDT 08/15/2022 3:17 AM EDT Narrative Resulting Agency Comment Spec In Lab Vanessa Escalona MD CHEMISTRY ORDERABLE S [facility] [place] [address] * (ABNORMAL) Basic Metabolic Panel (non-fasting) (08/15/2022 3:05 AM EDT) Glucose 378(H) 65 - 199 mg/dL [facility] Comment:Diabetes: >=200 mg/d L plus symptoms Blood Urea Nitrogen 38(H) 8 - 18 mg/dL [facility] Creatinine 1.42(H) 0.70 - 1.20 mg/dL [facility] Sodium 140 135 - 145 mmol/L [facility] Potassium 3.7 3.5 - 5.0 mmol/L [facility] Comment: Please note: ??Patients with WBC >100,000 may have falsely elevated Potassium levels. ??For accurate Potassium quantification in these patients send serum separator tube (gold top) for subsequent determinations. ??Contact the Clinical Chemistry Laboratory if there are any questions. Chloride 104 98 - 107 mmol/L [facility] Carbon Dioxide Not Perf 22 - 31 [facility] Comment:Add-on request. Samp le too old to perform test. Anion Gap Unable to Calculate 5 - 15 mmol/L [facility] Calcium 8.3(L) 8.5 - 10.5 mg/dL [facility] Est Glomerular Filtration Rate 42(L) >=60 mL/min/1 .73 m?? [facility] Comment: This patient's estimated GFR was [...] and symptoms in addition to eGFR. Blood Venous Draw / Unknown 08/15/2022 3:05 AM EDT 08/15/2022 3:17 AM EDT Narrative Resulting Agency Comment Spec In Lab Tyler Cobb MD CHEMISTRY ORDERABLES Performing Organization Address City/[facility]/[place] [address] * Scan, Peripheral Blood (08/15/2022 3:05 AM EDT) Plat estimate Increased [facility] RBC Morphology Abnormal [facility] Macrocyte 1-5 /HPF [facility] Microcyte 6-10 /HPF [facility] Comment:Corrected from 1-5 / HPF [NA] on 08/15/22 3:54:48 EDT by Cedric Forbes Hypochromia Moderate [facility] Target Cells 1-5 /HPF [facility] Connor Cells gtr than 10 /HPF [facility] Comment:Corrected from 1-5 / HPF [NA] on 08/15/22 3:54:48 EDT by Cedric Forbes Platelet Clumps Present [facility] Blood 08/15/2022 3:05 AM EDT 08/15/2022 3:16 AM EDT Narrative Resulting Agency Comment Spec In Lab Tyler Cobb MD HEMATOLOGY ORDERABLE S Performing Organization Address City/[facility]/[place] [address] * (ABNORMAL) Differential, Automated (08/15/2022 3:05 AM EDT) Neutrophil % 89.8 % [facility] Neutrophil Absolute 35.76(H) 1.70 - 6.10 x10(3)/mc L [facility] Lymph % 2.3 % [facility] Lymphocytes Abs 0.9 0.9 - 3.2 x10(3)/mc L [facility] Monocyte % 4.6 % [facility] Monocyte Abs 1.8(H) 0.3 - 0.9 x10(3)/mc L [facility] Eos % 0.5 % [facility] Eosinophils Abs 0.2 0.0 - 0.4 x10(3)/ L [facility] Basophil % 0.1 % [facility] Baso Absolute 0.0 0.0 - 0.1 x10(3)/ L [facility] Immature Gran % 2.70 % [facility] Comment: Immature granulocytes(IG's)percentage and absolute count will include metamyelocytes, myelocytes, and promyelocytes. Blood smears from CBCs yielding IG's will be scanned manually for concordance. If this scan disagrees with the automated IG or if promyelocytes are noted, a manual differential will be performed. Immature Gran Absolute 1.08(H) 0.00 - 0.04 x10(3)/ L [facility] Blood 08/15/2022 3:05 AM EDT 08/15/2022 3:16 AM EDT Narrative Resulting Agency Comment Spec In Lab Tyler Cobb MD HEMATOLOGY ORDERABLE S [facility] [place] [address] * (ABNORMAL) Hemogram (08/15/2022 3:05 AM EDT) White Blood Cell 39.8(Critica l) 4.0 - 9.5 x10(3)/ L [facility] Comment: This result has been called to MIROSLAVA BERRY by Cedric Forbes on 08 15 2022 at 0341, and has been read back. Red Blood Cell 5.08 4.00 - 5.21 x10(6)/mc L [facility] Hemoglobin 10.2(L) 11.7 - 15.5 g/dL [facility] Hematocrit 34.4(L) 35.7 - 45.8 % [facility] Mean Cell Volume 67.7(L) 82.6 - 94.4 fL [facility] Mean Cell Hemoglobin 20.1(L) 27.1 - 32.0 pg [facility] Mean Cell Hemoglobin Concentration 29.7(L) 31.7 - 35.0 g/dL [facility] Platelet 350 145 - 357 x10(3)/mc L [facility] RDW Standard Deviation 68.0(H) 37.0 - 46.0 fL [facility] RDW coefficient of variation 29.2(H) 11.5 - 14.1 % [facility] Mean Platelet Volume Not Measured 7.6 - 12.9 fL [facility] NRBC% auto 0.3 % [facility] NRBC Absolute 0.130(H) 0.000 - 0.000 x10(3)/mc L [facility] Blood 08/15/2022 3:05 AM EDT 08/15/2022 3:16 AM EDT Narrative Resulting Agency Comment Spec In Lab Tyler Cobb MD HEMATOLOGY ORDERABLE S [facility] [place] [address] * (ABNORMAL) Hemoglobin A1c (08/15/2022 3:05 AM EDT) Hemoglobin A1c 6.2(H) 4.3 - 5.6 % [facility] Comment: Reference Range: 4.3 - 5.6% [...] Mellitus, Diabetes Care 2013; 36: Suppl. 1, Z15-46 Estimated Average Glucose 130 mg/dL [facility] Comment: eAG equivalents for HbA1c percentages: [...] into estimated average glucose values. ??Diabetes Care 2008:31(8):3457-3795. Blood 08/15/2022 3:05 AM EDT 08/15/2022 3:16 AM EDT Narrative Resulting Agency Comment Spec In Lab Carlos Terry MD CHEMISTRY ORDERABLES [facility] [place] [address] * Heparin (unfractionated) Level (08/15/2022 3:05 AM EDT) UF Heparin 0.92 IU/mL [facility] Comment: Heparin (anti-Xa) levels should be determined in a plasma sample that has been drawn 6 hours after a dose change to approximate steady-state for continuous heparin infusions. Indication specific Heparin (anti-Xa) levels based on order set selection: Acute DVT or PE treatment: 0.3 ? 0.7 IU/mL Thrombosis Prevention (eg. atrial fibrillation, gavin-procedural bridging, mechanical valves): 0.3 ? 0.7 IU/mL Acute Coronary Syndrome: 0.3 ? 0.7 IU/mL Stroke Indications: 0.3 ? 0.5 IU/mL Ultra-low intensity (select indications in cardiac surgery): 0.1 ? 0.3 IU/mL Blood 08/15/2022 3:05 AM EDT 08/15/2022 3:16 AM EDT Narrative Resulting Agency Comment Spec In Lab Carlos Terry MD HEMATOLOGY ORDERABLE S Performing Organization Address [facility] Co de Phone Number [facility] [place] [address] * (ABNORMAL) Phosphorus (08/15/2022 3:05 AM EDT) Phosphorus 5.3(H) 2.5 - 4.5 mg/dL [facility] Blood 08/15/2022 3:05 AM EDT 08/15/2022 3:16 AM EDT Narrative Resulting Agency Comment Spec In Lab Richard Pascal MD CHEMISTRY ORDERABLES Performing Organization Address [facility] Co de Phone Number [facility] [place] [address] * Magnesium (08/15/2022 3:05 AM EDT) Magnesium 0.90 0.69 - 1.07 mmol/L [facility] Blood 08/15/2022 3:05 AM EDT 08/15/2022 3:16 AM EDT Narrative Resulting Agency Comment Spec In Lab Richard Pascal MD CHEMISTRY ORDERABLES Performing Organization Address [facility] Co de Phone Number [facility] [place] [address] * (ABNORMAL) Urinalysis Microscopic Exam (08/15/2022 1:50 AM EDT) RBC, Urine 15(H) 0 - 4 /HPF [facility] Comment: Interpret results with caution, microscopic results are from suboptimal specimen volume WBC, Urine 5 0 - 5 /HPF [facility] Comment: Interpret results with caution, microscopic results are from suboptimal specimen volume Bacteria, Urine Many(A) None /HPF [facility] Comment: Interpret results with caution, microscopic results are from suboptimal specimen volume Squamous Epithelial Cells Raw Data, Urine 4 <=4 /HPF [facility] Hyaline Casts, Urine <1 0 - 2 /LPF [facility] Comment: Interpret results with caution, microscopic results are from suboptimal specimen volume Indwelling Catheter Urine 08/15/2022 1:50 AM EDT 08/15/2022 1:55 AM EDT Narrative Resulting Agency Comment Spec In Lab Tyler Cobb MD URINE ORDERABLES [facility] [place] [address] * (ABNORMAL) Urinalysis with reflex Culture (08/15/2022 1:50 AM EDT) Glucose, Urine Dipstick Negative Negative mg/dL [facility] Protein, Urine Dipstick Trace(A) Negative mg/dL [facility] Bilirubin, Urine Dipstick Negative Negative mg/dL [facility] Comment: Clinical correlation required for positive Urine Bilirubin results as false positive may occur with some drugs and drug related products. If a false positive is suspected a serum total bilirubin should be considered if clinically indicated. Urobilinogen, Urine Dipstick Normal Normal mg/dL [facility] pH, Urn (dipstick) 5.5 5.0 - 8.0 [facility] Blood, Urine Dipstick Large(A) Negative mg/dL [facility] Ketone, Urine Dipstick Trace(A) Negative mg/dL [facility] Nitrite, Urine Dipstick Negative Negative [facility] Leukocytes, Urine Dipstick Trace(A) Negative [facility] Appearance, Urine Dipstick Cloudy(A) Clear [facility] Specific [place] Pos Urine Automated 1.015 1.005 - 1.030 [facility] Color, Urine Dipstick Yellow Yellow [facility] Reflex to Culture No [facility] Indwelling Catheter Urine 08/15/2022 1:50 AM EDT 08/15/2022 1:55 AM EDT Narrative Resulting Agency Comment Spec In Lab Carlos Terry MD URINE ORDERABLES [facility] [place] [address] * XR Chest One View (08/15/2022 1:14 AM EDT) Anatomical Region Laterality Modality Chest N/A Digital Radiogra phy Impressions 08/15/2022 3:55 AM EDT FINDINGS/IMPRESSION: * ??RIGHT neck central catheter redemonstrated terminating over the region of the pulmonary trunk, now uncoiled distally although the tip is looped. * ??Moderate pulmonary edema redemonstrated. * ??ET tube projects similar. Thank you for letting us participate in the care of this patient. ??If you are a health care provider and have any questions regarding this report, please contact the number below. ??For patients who have questions please contact the health acute care physician that requested your imaging first. ? Narrative 08/15/2022 3:55 AM EDT EXAMINATION: XR CHEST ONE VIEW CLINICAL HISTORY: confirm [place] placement TECHNIQUE: 1 view of the chest COMPARISON: 08/15/2022 Procedure Note Davi Terry MD - 08/15/2022 EXAMINATION: XR CHEST ONE VIEW CLINICAL HISTORY: confirm [place] placement TECHNIQUE: 1 view of the chest COMPARISON: 08/15/2022 IMPRESSION FINDINGS/IMPRESSION: * RIGHT neck central catheter redemonstrated terminating over the regionof the pulmonary trunk, now uncoiled distally although the tip is looped. * Moderate pulmonary edema redemonstrated. * ET tube projects similar. Thank you for letting us participate in the care of this patient. If youare a health care provider and have any questions regarding this report,please contact the number below. For patients who have questions please contactthe health acute care physician that requested your imaging first. Carlos Terry MD IMG DX ORDERABLES * (ABNORMAL) Coox2 (08/15/2022 1:13 AM EDT) pO2, Coox 36 mmHg [facility] Hgb Blood Gas 11.4(L) 11.7 - 15.5 g/dL [facility] Oxyhemoglobin, Coox 63.3 % [facility] Carboxyhemoglo bin, Coox 0.6 % [facility] Comment: Nonsmokers: 0.5-1.5% COHB Smokers: Variable, but usually less than 10% Toxic: 20-30% COHB Lethal: Greater than 60% COHB Methemoglobin, Coox 0.8 <=1.5 % [facility] Source Coox Mixed Venous [facility] Blood 08/15/2022 1:13 AM EDT 08/15/2022 1:13 AM EDT Carlos Terry MD POINT OF CARE TEST O RDERABLES Performing Organization Address City/[facility]/[place] Co de Phone Number [facility] [place] [address] * Blood culture (08/15/2022 1:10 AM EDT) Blood Culture No growth at 5 days. [facility] Blood 08/15/2022 1:10 AM EDT 08/15/2022 2:05 AM EDT Comment:neck Narrative Resulting Agency Comment Spec In Lab Carlos Terry MD MICROBIOLOGY - BLOOD ORDERABLES Performing Organization Address City/[facility] [address] * XR Chest One View (08/15/2022 1:00 AM EDT) Anatomical Region Laterality Modality Chest N/A Digital Radiogra phy Impressions 08/15/2022 3:53 AM EDT FINDINGS/IMPRESSION: * ??Moderate pulmonary edema. * ??No confluent airspace opacity otherwise seen. * ??Cannot exclude small pleural effusions. * ??Cardiomediastinal contours appear within normal limits. * ??Endotracheal tube tip projects 3.8 cm above the consuelo. * ??RIGHT neck central catheter, distal catheter coiled over the region of the RIGHT ventricle and pulmonary trunk. Thank you for letting us participate in the care of this patient. ??If you are a health care provider and have any questions regarding this report, please contact the number below. ??For patients who have questions please contact the health acute care physician that requested your imaging first. ? Narrative 08/15/2022 3:53 AM EDT EXAMINATION: XR CHEST ONE VIEW CLINICAL HISTORY: 62 yo F w/ suspected PNA vs volume overload, assess for presence of both TECHNIQUE: 1 view of the chest portable supine rotated COMPARISON: None Procedure Note Davi Terry MD - 08/15/2022 EXAMINATION: XR CHEST ONE VIEW CLINICAL HISTORY: 62 yo F w/ suspected PNA vs volume overload, assessfor presence of both TECHNIQUE: 1 view of the chest portable supine rotated COMPARISON: None IMPRESSION FINDINGS/IMPRESSION: * Moderate pulmonary edema. * No confluent airspace opacity otherwise seen. * Cannot exclude small pleural effusions. * Cardiomediastinal contours appear within normal limits. * Endotracheal tube tip projects 3.8 cm above the consuelo. * RIGHT neck central catheter, distal catheter coiled over the region ofthe RIGHT ventricle and pulmonary trunk. Thank you for letting us participate in the care of this patient. If youare a health care provider and have any questions regarding this report,please contact the number below. For patients who have questions please contactthe health acute care physician that requested your imaging first. Carlos Terry MD IMG DX ORDERABLES * MRSA PCR Screen ([facility]/CGP/APD/NLH) (08/15/2022 12:50 AM EDT) MRSA PCR Negative Negative [facility] MRSA (Interp) Methicillin-resist ant Staphylococcus aureus (MRSA) is NOT DETECTED The MRSA target DNA sequences (mec and SCC) were not detected within the acceptable ranges using the Xpert MRSA NxG on the GeneXpert Dx System ([employer]). This suggests the absence of MRSA in the patient specimen submitted for testing. This test is cleared by the U.S. Food and Drug Administration for clinical use and its performance characteristics have been verified by the [facility] at [facility]. This result does not rule out the presence of any other organisms. Rare false negative results may occur if MRSA is present at low concentrations with much higher concentrations of other organisms including MRSE or S. aureus with an empty SCC cassette. [facility] Comment: [VERIFIED DATE]08.17.22 Verified By:Shannon Smiley (Electronic Signature) Nasopharyngeal Swab 08/16/19 12:50 AM EDT 08/17/2022 8:38 AM EDT Comment:Specimen Type->Nasop haryngeal Swab Narrative Resulting Agency Comment Spec In Lab Carlos Terry MD MOLECULAR ORDERABLES [facility] [place] [address] * TSH [place] (08/15/2022 12:00 AM EDT) Thyroid Stimulating Hormone 0.28 0.27 - 4.20 mcIU/mL [facility] Comment: Reference Interval (mcIU/mL): Females: ??First Trimester: 0.23-3.88 ??Second Trimester: 0.22-3.90 ??Third Trimester: 0.44-4.66 Blood Venous Draw / Unknown 08/15/2022 08/15/2022 12:26 AM EDT Narrative Resulting Agency Comment Spec In Lab Jigar Streeter MD CHEMISTRY ORDERABLES Performing Organization Address [facility]/ZIP Co de Phone Number [facility] [place] [address] * Gold Tube HOLD (08/15/2022 12:00 AM EDT) Gold Hold Sample in lab. [facility] Blood Venous Draw / Unknown 08/15/2022 08/15/2022 12:16 AM EDT Tyler Cobb MD CHEMISTRY ORDERABLES Performing Organization Address [facility] Co de Phone Number [facility] [place] [address] * (ABNORMAL) APTT (08/15/2022 12:00 AM EDT) Partial Thromboplastin Time 154(Criti tonya) 25 - 37 sec [facility] Comment: Critical Result called by ?? LIZZETH CRITICAL Results read back by: ? Harley Cason at 2022-08-15 00:41:07 The PTT is NOT appropriate for heparin monitoring. Use the Anti-Xa level for heparin monitoring (HEP UFH) or LMWH monitoring (HEP LMW). A PTT less than 37 seconds generally indicates adequate hemostasis. Blood 08/15/2022 08/15/2022 12: 15 AM EDT Narrative Resulting Agency Comment Spec In Lab Carlos Terry MD HEMATOLOGY ORDERABLE S [facility] [place] [address] * (ABNORMAL) Prothrombin Time (08/15/2022 12:00 AM EDT) Prothrombin Time 22.3(H) 9.4 - 12.5 sec [facility] International Normalization Ratio 2.0 [facility] Comment: An INR <2.0 indicates adequate procoagulant activity for hemostasis in most patients without underlying bleeding disorders, though the INR may not adequately reflect hemostatic capacity in patients with liver disease and synthetic impairment. The recommended target INR range for therapeutic anticoagulation is 2.0 ? 3.0 for most applications, though lower and higher ranges may be appropriate depending on clinical circumstances. Blood 08/15/2022 08/15/2022 12: 15 AM EDT Narrative Resulting Agency Comment Spec In Lab Carlos Terry MD HEMATOLOGY ORDERABLE S Performing Organization Address [facility] Co de Phone Number [facility] [place] [address] * (ABNORMAL) BLOOD GAS 2 ARTERIAL (08/14/2022 11:57 PM EDT) pH, Arterial 7.25(Criti tonya) 7.35 - 7.45 [facility] Comment:Noted by electrical and instrument mechanic. PCO2, Arterial 42 35 - 45 mmHg [facility] PO2, Arterial 242(H) 85 - 104 mmHg [facility] Bicarbonate, Arterial 17.9(L) 20.0 - 26.0 mmol/L [facility] Base Excess, Arterial -9.3(L) -3.0 - 3.0 mmol/L [facility] Hgb Blood Gas 11.2(L) 11.7 - 15.5 g/dL [facility] Oxyhemoglobin, Arterial 98.0(H) 94.0 - 97.0 % [facility] Carboxyhemoglob in, Arterial 0.3 % [facility] Comment: Nonsmokers: 0.5-1.5% COHB Smokers: Variable, but usually less than 10% Toxic: 20-30% COHB Lethal: Greater than 60% COHB Methemoglobin, Arterial 0.9 <=1.5 % [facility] Na Whole Blood 140 135 - 145 mmol/L [facility] K Whole Blood 3.5 3.5 - 5.0 mmol/L [facility] Comment: Please note: Patients with WBC >100,000 may have falsely elevated Potassium levels. Contact the Clinical Chemistry Laboratory if there are any questions. ICa Whole Blood 1.16 1.15 - 1.33 mmol/L [facility] Comment: Note: ??Total bilirubin higher than 20 mg/dL may lead to falsely low ionized calcium. CL Whole Blood 110(H) 98 - 107 mmol/L [facility] Gluc Whole Bld 235(H) 65 - 199 mg/dL [facility] Comment:Diabetes: >=200 mg/d L plus symptoms. Lactate WB 2.6(H) 0.5 - 2.2 mmol/L [facility] FIO2 Art 60 % [facility] PF Ratio Art 403 [facility] Blood 08/14/2022 11:5 7 PM EDT 08/14/2022 11:57 PM EDT Carlos Terry MD POINT OF CARE TEST O RDERABLES Performing Organization Address City/[facility]/ZIP Co de Phone Number [facility] [place] [address] * Scan, Peripheral Blood (08/14/2022 11:55 PM EDT) Plat estimate Increased [facility] RBC Morphology Abnormal [facility] Microcyte 6-10 /HPF [facility] Hypochromia Moderate [facility] Connor Cells gtr than 10 /HPF [facility] Platelet Clumps Present [facility] Blood 08/14/2022 11:5 5 PM EDT 08/15/2022 12:06 AM EDT Narrative Resulting Agency Comment Spec In Lab Tyler Cobb MD HEMATOLOGY ORDERABLE S Performing Organization Address City/[facility]/ZIP Co de Phone Number [facility] [place] [address] * Vancomycin Level, Random (08/14/2022 11:55 PM EDT) Vancomycin, Random 12.1 mg/L [facility] [facility] Comment: This level is for determination of the patient's vancomycin dewh-gjbnl-ftt-curve (AUC) value. Contact the inpatient pharmacy for interpretation. Blood Venous Draw / Unknown 08/14/2022 11:55 PM EDT 08/15/2022 12:11 AM EDT Carlos Terry MD CHEMISTRY ORDERABLES [facility] [place] [address] * (ABNORMAL) Differential, Automated (08/14/2022 11:55 PM EDT) [facility] Neutrophil % 91.3 % [facility] Neutrophil Absolute 33.56(H) 1.70 - 6.10 x10(3)/mc L [facility] Lymph % 1.2 % [facility] Lymphocytes Abs 0.4(L) 0.9 - 3.2 x10(3)/mc L [facility] Monocyte % 4.4 % [facility] Monocyte Abs 1.6(H) 0.3 - 0.9 x10(3)/mc L [facility] Eos % 0.5 % [facility] Eosinophils Abs 0.2 0.0 - 0.4 x10(3)/mc L [facility] Basophil % 0.5 % [facility] Baso Absolute 0.2(H) 0.0 - 0.1 x10(3)/mc L [facility] Immature Gran % 2.10 % [facility] Comment: Immature granulocytes(IG's)percentage and absolute count will include metamyelocytes, myelocytes, and promyelocytes. Blood smears from CBCs yielding IG's will be scanned manually for concordance. If this scan disagrees with the automated IG or if promyelocytes are noted, a manual differential will be performed. Immature Gran Absolute 0.77(H) 0.00 - 0.04 x10(3)/mc L [facility] Blood 08/14/2022 11:5 5 PM EDT 08/15/2022 12:06 AM EDT Narrative Resulting Agency Comment Spec In Lab Tyler Cobb MD HEMATOLOGY ORDERABLE S [facility] [place] [address] * (ABNORMAL) Hemogram (08/14/2022 11:55 PM EDT) White Blood Cell 36.7(Critica l) 4.0 - 9.5 x10(3)/mc L [facility] Comment: This result has been called to HARLEY CASON by Cedric Forbes on 08 15 2022 at 0018, and has been read back. Red Blood Cell 5.28(H) 4.00 - 5.21 x10(6)/mc L [facility] Hemoglobin 10.7(L) 11.7 - 15.5 g/dL [facility] Hematocrit 35.9 35.7 - 45.8 % [facility] Mean Cell Volume 68.0(L) 82.6 - 94.4 fL [facility] Mean Cell Hemoglobin 20.3(L) 27.1 - 32.0 pg [facility] Mean Cell Hemoglobin Concentration 29.8(L) 31.7 - 35.0 g/dL [facility] Platelet 370(H) 145 - 357 x10(3)/mc L [facility] RDW Standard Deviation 68.2(H) 37.0 - 46.0 fL [facility] RDW coefficient of variation 29.3(H) 11.5 - 14.1 % [facility] Mean Platelet Volume Not Measured 7.6 - 12.9 fL [facility] NRBC% auto 0.2 % [facility] NRBC Absolute 0.080(H) 0.000 - 0.000 x10(3)/mc L [facility] Blood 08/14/2022 11:5 5 PM EDT 08/15/2022 12:06 AM EDT Narrative Resulting Agency Comment Spec In Lab Tyler Cobb MD HEMATOLOGY ORDERABLE S [facility] [place] [address] * Blood culture (08/14/2022 11:55 PM EDT) Blood Culture No growth at 5 days. [facility] Blood 08/14/2022 11:5 5 PM EDT 08/15/2022 1:51 AM EDT Comment:R wrist Narrative Resulting Agency Comment Spec In Lab Carlos Terry MD MICROBIOLOGY - BLOOD ORDERABLES [facility] [place] [address] * (ABNORMAL) pro-Brain Natriuretic Peptide (08/14/2022 11:55 PM EDT) NT-proBNP >35,000(H) <=124 pg/mL [facility] Blood 08/14/2022 11:5 5 PM EDT 08/15/2022 12:06 AM EDT Narrative Resulting Agency Comment Spec In Lab Carlos Terry MD CHEMISTRY ORDERABLES Performing Organization Address City/[facility]/ZIP Co de Phone Number [facility] [place] [address] * (ABNORMAL) Phosphorus (08/14/2022 11:55 PM EDT) Phosphorus 5.9(H) 2.5 - 4.5 mg/dL [facility] Blood 08/14/2022 11:5 5 PM EDT 08/15/2022 12:06 AM EDT Narrative Resulting Agency Comment Spec In Lab Carlos Terry MD CHEMISTRY ORDERABLES Performing Organization Address [facility]/[place] Co de Phone Number [facility] [place] [address] * Magnesium (08/14/2022 11:55 PM EDT) Magnesium 0.97 0.69 - 1.07 mmol/L [facility] Blood 08/14/2022 11:5 5 PM EDT 08/15/2022 12:06 AM EDT Narrative Resulting Agency Comment Spec In Lab Carlos Terry MD CHEMISTRY ORDERABLES [facility] [place] [address] * (ABNORMAL) Troponin (08/14/2022 11:55 PM EDT) Troponin-T, High Sensitivity 617(H) <=14 ng/L [facility] Comment: This patient's troponin T concentration was determined using the [employer] 5th Generation troponin T assay. The 99th percentile for Troponin T for this test is 14 ng/L for females, and 22 ng/L for males. According to the fourth universal definition of myocardial infarction, the term acute myocardial infarction should be used when there is acute myocardial injury with clinical evidence of acute myocardial ischemia and with detection of a rise and/or fall of cardiac troponin values with at least one value above the 99th percentile and at least one of the following: - Symptoms of myocardial ischemia; - New ischemic ECG changes; - Development of pathological Q waves; - Imaging evidence of new loss of viable myocardium or new regional wall motion abnormality in a pattern consistent with an ischemic etiology; - Identification of a coronary thrombus by angiography or autopsy (not for type 2 or 3 MIs) Serial measurement of troponin and the change in troponin concentration over time (delta) is crucial for the diagnosis of acute myocardial infarction. Guidance on the interpretation of the new 5th Generation Troponin T values and the delta troponin value can be found in the [facility] Test Catalog Troponin - [facility] Test Catalog Reference: Fourth [place] Definition of Myocardial Infarction. Journal of the [place] [employer] 2018;72:9179-5749 Blood 08/14/2022 11:5 5 PM EDT 08/15/2022 12:06 AM EDT Narrative Resulting Agency Comment Spec In Lab Carlos Terry MD CHEMISTRY ORDERABLES Performing Organization Address City/[facility]/ZIP Co de Phone Number [facility] [place] [address] * (ABNORMAL) Basic Metabolic Panel (non-fasting) (08/14/2022 11:55 PM EDT) Glucose 258(H) 65 - 199 mg/dL [facility] Comment:Diabetes: >=200 mg/d L plus symptoms Blood Urea Nitrogen 36(H) 8 - 18 mg/dL [facility] Creatinine 1.40(H) 0.70 - 1.20 mg/dL [facility] Sodium 141 135 - 145 mmol/L [facility] Potassium 4.0 3.5 - 5.0 mmol/L [facility] Comment: Please note: ??Patients with WBC >100,000 may have falsely elevated Potassium levels. ??For accurate Potassium quantification in these patients send serum separator tube (gold top) for subsequent determinations. ??Contact the Clinical Chemistry Laboratory if there are any questions. Chloride 107 98 - 107 mmol/L [facility] Carbon Dioxide 17(L) 22 - 31 mmol/L [facility] Anion Gap 17(H) 5 - 15 mmol/L [facility] Calcium 8.5 8.5 - 10.5 mg/dL [facility] Est Glomerular Filtration Rate 43(L) >=60 mL/min/1. 73 m?? [facility] Comment: This patient's estimated GFR was [...] and symptoms in addition to eGFR. Blood 08/14/2022 11:5 5 PM EDT 08/15/2022 12:06 AM EDT Narrative Resulting Agency Comment Spec In Lab Carlos Terry MD CHEMISTRY ORDERABLES [facility] [place] [address] * (ABNORMAL) Point of Care Blood Gas Historical (08/14/2022 10:32 PM EDT) pH, POC 7.15(Crit ical) 7.35 - 7.45 [facility] Comment:Critical result OK - DHART pCO2, POC 68(Critic al) 35 - 45 mmHg [facility] Comment:Critical result OK - DHART pO2, POC 47(Critic al) 85 - 104 mmHg [facility] Comment:Critical result OK - DHART Base Excess, POC -5.0(L) -3.0 - 3.0 mmol/L [facility] Bicarbonate, POC 23.9 20.0 - 26.0 mmol/L [facility] Sodium, POC 142 135 - 145 mmol/L [facility] POC Potassium 3.8 3.5 - 5.0 mmol/L [facility] Ionized Calcium, POC 1.21 1.15 - 1.33 mmol/L [facility] POC Hematocrit 36.0 34.0 - 45.0 % [facility] POC Calc Hgb 12.2 11.2 - 15.7 g/dL [facility] Comment:The calculation of h emoglobin from hematocrit assumes a normal MCHC. POC Bgas Loc [facility] Blood 08/14/2022 10:3 2 PM EDT 08/16/2022 12:00 PM EDT Carlos Terry MD CHEMISTRY ORDERABLES [facility] [place] [address] * Film Library- Storage Only DX Chest (08/14/2022 12:00 AM EDT) Narrative Dicom, Auditing User - 08/15/2022 8:43 AM EDT This exam is auto-finalizing. It's purpose is for storage only. Audi Serna MD IMG FILM LIBRARY ORD ERABLES * Film Library- Storage Only CT Head (08/13/2022 12:00 AM EDT) Narrative Dicom, Auditing User - 08/15/2022 8:36 AM EDT This exam is auto-finalizing. It's purpose is for storage only. Audi Serna MD [facility] [place]RARY ORD ERABLES * Film Library- Storage Only DX Chest (08/12/2022 12:05 AM EDT) Narrative Dicom, Auditing User - 08/15/2022 8:37 AM EDT This exam is auto-finalizing. It's purpose is for storage only. Audi Serna MD [facility] [place]M LIBRARY ORD ERABLES * Film Library- Storage Only CT Chest (08/12/2022 12:00 AM EDT) Narrative Dicom, Auditing User - 08/15/2022 8:36 AM EDT This exam is auto-finalizing. It's purpose is for storage only. Audi Serna MD [facility] [place]M [place]RARY ORD ERABLES * Film Library- Storage Only DX Chest (08/08/2022 12:15 AM EDT) Narrative Dicom, Auditing User - 08/15/2022 8:43 AM EDT This exam is auto-finalizing. It's purpose is for storage only. Audi Serna MD [facility] [place]RARY ORD ERABLES * Film Library- Storage Only DX Pelvis (08/08/2022 12:10 AM EDT) Narrative Dicom, Auditing User - 08/15/2022 8:37 AM EDT This exam is auto-finalizing. It's purpose is for storage only. Audi Serna MD [facility] [place]M [place]RARY ORD ERABLES * Film Library- Storage Only DX Lower Extremity (08/08/2022 12:05 AM EDT) Narrative Dicom, Auditing User - 08/15/2022 8:37 AM EDT This exam is auto-finalizing. It's purpose is for storage only. Audi Serna MD [facility] [place]M LIBRARY ORD ERABLES documented in this encounter Visit Diagnoses Diagnosis Shock- Primary Shock, unspecified Shock Shock, unspecified Closed fracture of neck of left femur, initial encounter Bradycardia Other specified cardiac dysrhythmias Farrell's esophagus with dysplasia Farrell's esophagus Gastrostomy tube in place Esophageal stricture Stricture and stenosis of esophagus Cardiomyopathy, unspecified type Neuroleptic-induced parkinsonism Secondary Parkinsonism T2DM (type 2 diabetes mellitus) Type II or unspecified type diabetes mellitus without mention of complication, not stated as uncontrolled Bipolar disorder Bipolar disorder, unspecified Gastrostomy tube in place documented in this encounter Admitting Diagnoses Diagnosis Shock Shock, unspecified documented in this encounter Administered Medications Inactive Administered Medications - up to 3 most recent administrations Medication Order MAR Action Action Date Dose Rate Site acetaminophen (Tylenol) (32.02 mg/mL) oral liquid 1,000 mg 1,000 mg, Oral, EVERY 8 HOURS SCHEDULED, First dose on 08/15/22 at 0030, Until Discontinued, May give PO or Per Tube. Maximum dose of acetaminophen is 4,000 mg from all sources in 24 hours. When ordered for pain, acetaminophen should be given even when other ordered pain medications are indicated., Routine Given 08/26/2022 5:29 AM EDT 1,000 mg Given 08/25/2022 9:03 PM EDT 1,000 mg Given 08/25/2022 2:57 PM EDT 1,000 mg acetaminophen (Tylenol) suppository 650 mg 650 mg, Rectal, EVERY 6 HOURS PRN, Starting on Wed09/04/22 at 1504, Until Wed09/11/22 at 2341, Fever, Pain, Maximum dose of acetaminophen is 4,000 mg from all sources in 24 hours. When ordered for pain, acetaminophen should be given even when other ordered pain medications are indicated. , Routine Given 09/05/2022 8:21 PM EDT 650 mg Given 09/05/2022 2:59 AM EDT 650 mg acetaminophen (Tylenol) tablet 1,000 mg 1,000 mg, Oral, EVERY 8 HOURS SCHEDULED, First dose on 08/15/22 at 0030, Until Discontinued, May give PO or Per Tube. Maximum dose of acetaminophen is 4,000 mg from all sources in 24 hours. When ordered for pain, acetaminophen should be given even when other ordered pain medications are indicated., Routine Given 09/04/2022 5:47 AM EDT 1,000 mg Given 09/03/2022 9:36 PM EDT 1,000 mg Given 09/03/2022 2:32 PM EDT 1,000 mg acetaminophen (Tylenol) tablet 650 mg 650 mg, Per G Tube, EVERY 6 HOURS PRN, Starting on Wed09/11/22 at 2341, Until Wed09/16/22 at 1155, Pain, Maximum dose of acetaminophen is 4,000 mg from all sources in 24 hours. When ordered for pain, acetaminophen should be given even when other ordered pain medications are indicated. , Routine Given 09/16/2022 3:04 AM EDT 650 mg Given 09/15/2022 8:16 PM EDT 650 mg Given 09/15/2022 12:07 AM EDT 650 mg acetaminophen (Tylenol) tablet 650 mg 650 mg, Per G Tube, EVERY 6 HOURS, First dose on Wed09/16/22 at 1245, Until Discontinued, Maximum dose of acetaminophen is 4,000 mg from all sources in 24 hours. When ordered for pain, acetaminophen should be given even when other ordered pain medications are indicated. , Routine Given 09/19/2022 5:48 AM EDT 650 mg Given 09/19/2022 12:00 AM EDT 650 mg Given 09/18/2022 6:35 PM EDT 650 mg acetaminophen (Tylenol) tablet 650 mg 650 mg, Per G Tube, 4 TIMES DAILY, First dose (after last modification) on 09/19/22 at 1300, Until Discontinued, Maximum dose of acetaminophen is 4,000 mg from all sources in 24 hours. When ordered for pain, acetaminophen should be given even when other ordered pain medications are indicated. , Routine Given 09/25/2022 8:23 AM EDT 650 mg Given 09/24/2022 8:46 PM EDT 650 mg Given 09/24/2022 4:46 PM EDT 650 mg aspirin chewable tablet 81 mg 81 mg, Oral, DAILY, First dose on 08/15/22 at 0900, Until Discontinued, Routine Given 08/22/2022 9:11 AM EDT 81 mg Given 08/21/2022 8:14 AM EDT 81 mg Given 08/20/2022 8:48 AM EDT 81 mg aspirin chewable tablet 81 mg 81 mg, Per NG tube, DAILY, First dose (after last modification) on 08/23/22 at 0900, Until Discontinued, Routine Given 08/27/2022 9:16 AM EDT 81 mg Given 08/26/2022 8:13 AM EDT 81 mg Given 08/25/2022 9:02 AM EDT 81 mg atorvastatin (Lipitor) tablet 80 mg 80 mg, Oral, EVERY EVENING, First dose on 08/15/22 at 1700, Until Discontinued, Routine Given 08/21/2022 5:08 PM EDT 80 mg Given 08/20/2022 4:25 PM EDT 80 mg Given 08/19/2022 4:52 PM EDT 80 mg atorvastatin (Lipitor) tablet 80 mg 80 mg, Per NG tube, EVERY EVENING, First dose (after last modification) on 08/22/22 at 1700, Until Discontinued, Routine Given 09/09/2022 5:18 PM EDT 80 mg Given 09/08/2022 4:47 PM EDT 80 mg Given 09/07/2022 5:18 PM EDT 80 mg atorvastatin (Lipitor) tablet 80 mg 80 mg, Per G Tube, EVERY EVENING, First dose (after last modification) on 09/12/22 at 1700, Until Discontinued, Routine Given 09/24/2022 4:46 PM EDT 80 mg Given 09/23/2022 4:49 PM EDT 80 mg Given 09/22/2022 4:04 PM EDT 80 mg azithromycin (Zithromax) 500 mg in sodium chloride 0.9% 255 mL infusion 500 mg 500 mg, Intravenous, EVERY 24 HOURS, First dose on Wed08/18/22 at 1045, Until Discontinued, Administer over 60 Minutes, Indication for (Active or Suspected): Pneumonia ([facility]) New Bag 08/18/2022 10:42 AM EDT 500 mg 255.1 mL/hr barium sulfate (Varibar Thin Liquid) oral powder 0-250 mL 0-250 mL, Oral, ONCE PRN, 1 dose, Starting on Wed08/31/22 at 1123, Until Wed08/31/22 at 1123, Per Protocol, Radiology Contrast, Routine Given 08/31/2022 11:23 AM EDT 70 mLs barium sulfate (Varibar Thin Liquid) oral powder 0-250 mL 0-250 mL, Oral, ONCE PRN, 1 dose, Starting on Wed09/04/22 at 1007, Until Wed09/04/22 at 1022, Per Protocol, Radiology Contrast, Routine Given 09/04/2022 10:22 AM EDT 15 mLs bisacodyL (Dulcolax) suppository 10 mg 10 mg, Rectal, DAILY PRN, Starting on Wed08/21/22 at 1538, Until Wed08/25/22 at 1129, Constipation, Routine Given 08/24/2022 9:41 AM EDT 10 mg Given 08/23/2022 4:24 PM EDT 10 mg Given 08/21/2022 4:39 PM EDT 10 mg bisacodyL (Dulcolax) suppository 10 mg 10 mg, Rectal, DAILY PRN, Starting on Wed08/25/22 at 1129, Until Wed09/25/22 at 1327, Constipation, 3rd line, Routine Given 09/09/2022 2:56 PM EDT 10 mg buPROPion (Wellbutrin) tablet 100 mg 100 mg, Per NG tube, 2 TIMES DAILY, First dose on Wed09/02/22 at 0900, Until Discontinued, Routine Given 09/02/2022 9:53 AM EDT 100 mg buPROPion (Wellbutrin) tablet 100 mg 100 mg, Per NG tube, DAILY, First dose (after last modification) on [place] 09/03/22 at 0900, Until Discontinued, Routine Given 09/04/2022 8:09 AM EDT 100 mg Given 09/03/2022 9:45 AM EDT 100 mg buPROPion (Wellbutrin) tablet 100 mg 100 mg, Oral, DAILY, First dose (after last modification) on 09/05/22 at 0900, Until Discontinued, Please crush and mix with thickened foods/drink, Routine Given 09/05/2022 9:05 AM EDT 100 mg buPROPion (Wellbutrin) tablet 100 mg 100 mg, Per NG tube, DAILY, First dose (after last modification) on Wed09/06/22 at 0900, Until Discontinued, Please crush and mix with thickened foods/drink, Routine Given 09/09/2022 10:05 AM EDT 100 mg Given 09/08/2022 9:57 AM EDT 100 mg Given 09/07/2022 8:43 AM EDT 100 mg buPROPion (Wellbutrin) tablet 100 mg 100 mg, Per G Tube, DAILY, First dose (after last modification) on 09/12/22 at 0900, Until Discontinued, Routine Given 09/25/2022 8:23 AM EDT 100 mg Given 09/24/2022 9:17 AM EDT 100 mg Given 09/23/2022 8:36 AM EDT 100 mg calcium carbonate (TUMS) chewable tablet 500 mg 500 mg, Per G Tube, ONCE, 1 dose, On 09/20/22 at 0000, STAT Given 09/19/2022 11:15 PM EDT 500 mg chlorhexidine (Peridex) 0.12 % oral solution 15 mL 15 mL, Oral, 2 TIMES DAILY, First dose on 08/15/22 at 1000, Until Discontinued, Routine Given 09/25/2022 8:23 AM EDT 15 mLs Given 09/24/2022 8:46 PM EDT 15 mLs Given 09/24/2022 9:14 AM EDT 15 mLs clopidogreL (Plavix) tablet 75 mg 75 mg, Oral, DAILY, First dose on [place] 08/16/22 at 0900, Until Discontinued, Routine Given 08/22/2022 9:11 AM EDT 75 mg Given 08/21/2022 8:14 AM EDT 75 mg Given 08/20/2022 8:48 AM EDT 75 mg clopidogreL (Plavix) tablet 75 mg 75 mg, Per NG tube, DAILY, First dose (after last modification) on 08/23/22 at 0900, Until Discontinued, Routine Given 08/27/2022 9:16 AM EDT 75 mg Given 08/26/2022 8:13 AM EDT 75 mg Given 08/25/2022 9:02 AM EDT 75 mg dextrose 10% infusion 250 mL, at 1,000 mL/hr, Intravenous, EVERY 30 MIN PRN, Starting on Wed08/14/22 at 2345, Until Wed09/25/22 at 1327, For BG 50-70 mg/dL: Oral treatment preferred: If able to drink, give 120 mL Juice or Regular (not diet) soda OR If NPO, give 15 gram glucose 40% oral gel massaged into buccal mucosa OR if unconscious or uncooperative, give 25 gram (250 mL) Dextrose 10% IV over 15 minutes per protocol OR, if no IV access, 1 mg Glucagon IM. For BG less than 50 mg/dL: Oral treatment preferred: If able to drink, give 240 mL Juice or Regular (not diet) soda OR If NPO, give 30 gram glucose 40% oral gel massaged in buccal mucosa OR if unconscious or uncooperative, give 25 gram (250 mL) Dextrose 10% IV over 15 minutes per protocol OR, if no IV access, 1 mg Glucagon IM. Recheck BG in 30 minutes. May repeat juice/soda, gel, dextrose or glucagon once per episode. For persistent hypoglycemia, consider longer-acting treatment for the duration of the active insulin. New Bag 09/04/2022 9:11 PM EDT 250 mLs 1000 mL/hr New Bag 09/04/2022 4:57 PM EDT 250 mLs 1000 mL/hr dextrose 5% and lactated ringers infusion 100 mL/hr, Intravenous, CONTINUOUS, Starting on 09/09/22 at 0115, Until Wed09/11/22 at 1617 New Bag 09/11/2022 9:46 AM EDT 100 mL/hr 100 mL/hr New Bag 09/10/2022 10:52 PM EDT 100 mL/hr 100 mL/hr New Bag 09/10/2022 1:14 PM EDT 100 mL/hr 100 mL/hr diclofenac (Voltaren) gel Topical (Top), 4 TIMES DAILY PRN, Pain, Starting on 09/05/22 at 0155, Until Wed09/25/22 at 1327, Apply topically to hip. Total dose not to exceed 32 grams per day over all affected joints. Doses should be measured using the dosing cards supplied with the product., Where is this medication being applied? Please also specify in administration instructions. Other / Hip, Dose of medication being applied? 4 gram dose Given 09/21/2022 9:13 AM EDT 1 g Given 09/16/2022 4:26 PM EDT 4 g 20 -Other (document in comment section) Given 09/11/2022 2:41 AM EDT 4 g diphenhydrAMINE (Benadryl) (50 mg/mL) injection 10 mg 10 mg, Intravenous, ONCE, 1 dose, On [place] 09/10/22 at 2300, Routine Given 09/10/2022 10:32 PM EDT [address] Sprinkle (Depakote Sprinkle) capsule 500 mg 500 mg, Oral, 2 TIMES DAILY, First dose on 08/18/22 at 1300, Until Discontinued, DO NOT SPLIT OR CRUSH Sprinkle capsules may be opened for administration, Routine Given 08/18/2022 1:22 PM EDT 500 mg divalproex EC (Depakote) tablet 500 mg 500 mg, Oral, 2 TIMES DAILY, First dose on 08/15/22 at 0000, Until Discontinued, DO NOT SPLIT, CRUSH OR OPEN, Routine Given 08/15/2022 9:25 PM EDT 500 mg DOBUTamine (Dobutrex) (4,000 mcg/mL) in dextrose 5% 250 mL infusion 2.5 mcg/kg/min ? 69 kg (2.5875 mL/hr, rounded to 2.6 mL/hr), Intravenous, CONTINUOUS, Starting on 08/15/22 at 0000, Until 08/16/22 at 0956, Titrate to maintain MAP >65. Start at 2.5 mcg/kg/min and adjust by 2.5 mcg/kg/min every 10 minutes. Do not exceed 20 mcg/kg/minute. Warning Vesicant/Irritant Medication Concentration 4000 mcg/mL. Warning Vesicant/Irritant Medication Rate/Dose Change 08/16/2022 8:00 AM EDT 5 mcg/kg/min 5.2 mL/hr New Bag 08/16/2022 3:35 AM EDT 2.5 mcg/kg/min 2.6 mL/hr New Bag 08/14/2022 11:30 PM EDT 2.5 mcg/kg/min 2.6 mL/h r DOBUTamine (Dobutrex) (4,000 mcg/mL) in dextrose 5% 250 mL infusion 0-10 mcg/kg/min ? 73.8 kg (0-11.07 mL/hr, rounded to 0-11.1 mL/hr), Intravenous, CONTINUOUS, Starting on 08/16/22 at 1045, Until Betty 08/20/22 at 1430, Titrate to maintain MAP greater than 65. Start at 2.5 mcg/kg/min and adjust by 2.5 mcg/kg/min every 10 minutes as needed. Do not exceed 20 mcg/kg/minute. Warning Vesicant/Irritant Medication Concentration 4000 mcg/mL. Warning Vesicant/Irritant Medication Rate/Dose Verify 08/17/2022 2:00 PM EDT 2.5 mcg/kg/min 2.8 mL/hr Rate/Dose Verify 08/17/2022 12:00 PM EDT 2.5 mcg/kg/min 2. 8 mL/hr Rate/Dose Verify 08/17/2022 10:00 AM EDT 2.5 mcg/kg/min 2. 8 mL/hr empagliflozin (Jardiance) tablet 10 mg 10 mg, Oral, DAILY, First dose on 08/29/22 at 1100, Until Discontinued, Please crush and give with thickened liquids This medication should not be given with reduced PO intake/fluid loss, severe illness, or in patients with ketonemia or ketouria. , Routine, This medication should be held for 3 days prior to surgery. Is there a planned procedure within 3 days? No, Indication for empagliflozin: heart failure (HFpEF or HFrEF), Is this a new initiation for patients with heart failure (HFpEF or HFrEF) with or without diabetes? Yes, Medication is not always covered by insurance. Will you verify it is covered by insurance prior to discharge? Yes Given 09/08/2022 9:59 AM EDT 10 mg Given 09/07/2022 8:43 AM EDT 10 mg Given 09/06/2022 9:37 AM EDT 10 mg empagliflozin (Jardiance) tablet 10 mg 10 mg, Oral, DAILY, First dose on 09/12/22 at 0900, Until Discontinued, Per G tube This medication should not be given with reduced PO intake/fluid loss, severe illness, or in patients with ketonemia or ketouria. , Routine, This medication should be held for 3 days prior to surgery. Is there a planned procedure within 3 days? No, Indication for empagliflozin: heart failure (HFpEF or HFrEF), Is this a new initiation for patients with heart failure (HFpEF or HFrEF) with or without diabetes? No Given 09/25/2022 8:22 AM EDT 10 mg Given 09/24/2022 9:19 AM EDT 10 mg Given 09/23/2022 8:36 AM EDT 10 mg enoxaparin (Lovenox) (40 mg/0.4 mL) subcutaneous injection 40 mg 40 mg, Subcutaneous, EVERY 24 HOURS SCHEDULED (Daily), First dose on 08/24/22 at 1030, Until Discontinued, Routine Given 09/24/2022 9:15 AM EDT 40 mg Right Lower Quadrant Given 09/23/2022 8:37 AM EDT 40 mg Le ft Lower Quadrant Given 09/22/2022 9:27 AM EDT 40 mg EPINEPHrine (Adrenalin) (8 mcg/mL) in dextrose 5% 250 mL infusion 0-10 mcg/min (0-75 mL/hr), Intravenous, CONTINUOUS, Starting on 08/15/22 at 0030, Until Betty 08/20/22 at 1430, Titrate to keep MAP greater than 65 mmHg. Start at 1 mcg/min and increase by 1 mcg/min every 3 minutes until goal reached. Do not exceed 10 mcg/min. Warning Vesicant/Irritant Medication Concentration: 8 mcg/mL. Warning Vesicant/Irritant Medication Rate/Dose Verify 08/16/2022 12:00 PM EDT 0.5 mcg/min 3.8 mL/hr Rate/Dose Change 08/16/2022 11:35 AM EDT 0.5 mcg/min 3.8 m L/hr Rate/Dose Verify 08/16/2022 10:00 AM EDT 1 mcg/min 7.5 mL /hr ergocalciferoL (vitamin D2) (8,000 units/mL) oral liquid 50,000 Units 50,000 Units, Per NG tube, WEEKLY, 8 doses, First dose on Wed08/25/22 at 1400, Last dose on Wed10/13/22 at 0900, Routine Given 09/08/2022 9:00 AM EDT 50,000 Units Given 09/01/2022 8:50 AM EDT 50,000 Units Given 08/25/2022 2:57 PM EDT 50,000 Units ergocalciferoL (vitamin D2) (8,000 units/mL) oral liquid 50,000 Units 50,000 Units, Per G Tube, WEEKLY, 5 doses, First dose (after last modification) on Wed09/15/22 at 0900, Last dose on Wed10/13/22 at 0900, Routine Given 09/22/2022 9:26 AM EDT 50,000 Units Given 09/15/2022 9:34 AM EDT 50,000 Units fentaNYL (50 mcg/mL) bolus from infusion 25-100 mcg 25-100 mcg, Intravenous, EVERY 15 MIN PRN, Starting on 08/14/22 at 2334, Until Betty 08/20/22 at 1430, Pain, Refer to infusion order for Bolus instructions. Reassess pain 15 minutes after bolus given., Routine Bolus from Infusion 08/17/2022 9:57 AM EDT 25 mcg Bolus from Infusion 08/16/2022 6:22 PM EDT 50 mcg Bolus from Infusion 08/15/2022 3:29 PM EDT 25 mcg fentaNYL (PF) (50 mcg/mL) infusion syringe 50 mL 0-200 mcg/hr (0-4 mL/hr), Intravenous, CONTINUOUS, Starting on 08/15/22 at 0030, Until Betty 08/20/22 at 1430, Titrate to pain scale goal less than or equal to 3, or to patient verbalized goal. Initial infusion rate: 50 mcg/hr. Rate not to exceed 200 mcg/hr. If current range rate is 25-100 mcg/hr: Bolus with 50 mcg for each infusion increase. Titrate infusion by 25 mcg/hr to reach goal. If current range rate is 101-200 mcg/hr: Bolus with 100 mcg for each infusion increase. Titrate infusion by 50 mcg/hr to reach goal. If pain still not controlled at 200 mcg/hr, or increase exceeds the maximum range in the order, contact provider for a new order. Assess pain once, 15-30 minutes after infusion initiation, bolus administrations, or infusion titration. Once stable, assess pain every 1-2 hours. Pain assessment MUST be documented prior to rate change., Routine Rate/Dose Change 08/17/2022 1:25 PM EDT 12.5 mcg/hr 0.3 mL/hr Rate/Dose Verify 08/17/2022 12:00 PM EDT 25 mcg/hr 0.5 mL /hr Rate/Dose Verify 08/17/2022 10:00 AM EDT 25 mcg/hr 0.5 mL /hr ferrous sulfate (60 mg/mL) oral liquid 300 mg 300 mg, Oral, EVERY OTHER DAY, First dose on Wed08/21/22 at 1030, Until Discontinued, Each mL contains 12 mg of elemental iron, Routine Given 08/21/2022 11:30 AM EDT 300 mg ferrous sulfate (60 mg/mL) oral liquid 300 mg 300 mg, Per NG tube, EVERY OTHER DAY, First dose (after last modification) on [place] 08/23/22 at 0900, Until Discontinued, Each mL contains 12 mg of elemental iron, Routine Given 09/08/2022 9:57 AM EDT 30 0 mg Given 09/06/2022 9:31 AM EDT 300 mg Given 09/04/2022 8:12 AM EDT 300 mg ferrous sulfate (60 mg/mL) oral liquid 300 mg 300 mg, Per G Tube, EVERY OTHER DAY, First dose (after last modification) on [facility] 09/12/22 at 0900, Until Discontinued, Each mL contains 12 mg of elemental iron, Routine Given 09/24/2022 9:16 AM EDT 300 mg Given 09/22/2022 9:27 AM EDT 300 mg Given 09/20/2022 9:44 AM EDT 300 mg folic acid (Vitamin B9) tablet 1,000 mcg 1,000 mcg, Oral, DAILY, First dose on [facility] 08/15/22 at 0900, Until Discontinued, Routine Given 08/22/2022 9:11 AM EDT 1,000 mcg Given 08/21/2022 8:14 AM EDT 1,000 mcg Given 08/20/2022 8:48 AM EDT 1,000 mcg folic acid (Vitamin B9) tablet 1,000 mcg 1,000 mcg, Per NG tube, DAILY, First dose (after last modification) on [place] 08/23/22 at 0900, Until Discontinued, Routine Given 09/09/2022 10:06 AM EDT 1,000 mcg Given 09/08/2022 9:57 AM EDT 1,000 mcg Given 09/07/2022 8:42 AM EDT 1,000 mcg folic acid (Vitamin B9) tablet 1,000 mcg 1,000 mcg, Per G Tube, DAILY, First dose (after last modification) on [facility] 09/12/22 at 0900, Until Discontinued, Routine Given 09/25/2022 8:22 AM EDT 1,000 mcg Given 09/24/2022 9:16 AM EDT 1,000 mcg Given 09/23/2022 8:36 AM EDT 1,000 mcg furosemide (Lasix) (1 mg/mL) infusion 100 mg vial attached to sodium chloride 0.9% 100 mL Mini-Bag Plus 5 mg/hr (5 mL/hr), Intravenous, CONTINUOUS, Starting on 08/15/22 at 0145, Until 08/15/22 at 0951, Routine Rate/Dose Change 08/15/2022 2:35 AM EDT 5 mg/hr 5 mL/hr New Bag 08/15/2022 2:22 AM EDT 10 mg/hr 10 mL/hr furosemide (Lasix) (10 mg/mL) injection 40 mg 40 mg, Intravenous, ONCE, 1 dose, On 08/17/22 at 1215 Given 08/17/2022 11:37 AM EDT 40 mg furosemide (Lasix) (10 mg/mL) injection 40 mg 40 mg, Intravenous, ONCE, 1 dose, On [place] 08/20/22 at 1215 Given 08/20/2022 11:51 AM EDT 40 mg furosemide (Lasix) (10 mg/mL) injection 40 mg 40 mg, Intravenous, ONCE, 1 dose, On 08/22/22 at 1800 Given 08/22/2022 5:42 PM EDT 40 mg furosemide (Lasix) (10 mg/mL) injection 40 mg 40 mg, Intravenous, ONCE, 1 dose, On 08/23/22 at 1900 Given 08/23/2022 6:14 PM EDT 40 mg furosemide (Lasix) (10 mg/mL) injection 80 mg 80 mg, Intravenous, ONCE, 1 dose, On 08/15/22 at 0315 Given 08/15/2022 2:34 AM EDT 80 mg furosemide (Lasix) (10 mg/mL) injection 80 mg 80 mg, Intravenous, ONCE, 1 dose, On 08/15/22 at 1045 Given 08/15/2022 10:07 AM EDT 80 mg furosemide (Lasix) (10 mg/mL) injection 80 mg 80 mg, Intravenous, ONCE, 1 dose, On 08/15/22 at 1600 Given 08/15/2022 4:31 PM EDT 80 mg furosemide (Lasix) (10 mg/mL) injection 80 mg 80 mg, Intravenous, ONCE, 1 dose, On 08/19/22 at 0915 Given 08/19/2022 9:19 AM EDT 80 mg gabapentin (Neurontin) capsule 100 mg 100 mg, Oral, 3 TIMES DAILY, First dose on Wed09/13/22 at 1545, Until Discontinued, Routine Given 09/15/2022 8:16 PM EDT 100 mg Given 09/15/2022 3:48 PM EDT 100 mg Given 09/15/2022 8:52 AM EDT 100 mg gabapentin (Neurontin) capsule 100 mg 100 mg, Per G Tube, 3 TIMES DAILY, First dose (after last modification) on Wed09/16/22 at 0900, Until Discontinued, Routine Given 09/21/2022 9:12 AM EDT 100 mg Given 09/20/2022 9:24 PM EDT 100 mg Given 09/20/2022 3:50 PM EDT 100 mg gabapentin (Neurontin) capsule 300 mg 300 mg, Per G Tube, 3 TIMES DAILY, First dose (after last modification) on Wed09/21/22 at 2100, Until Discontinued, Routine Given 09/25/2022 8:22 AM EDT 300 mg Given 09/24/2022 8:46 PM EDT 300 mg Given 09/24/2022 2:24 PM EDT 300 mg glucagon (Glucagen) (1 mg/mL) injection solution 1 mg 1 mg, Intramuscular, EVERY 30 MIN PRN, Starting on Wed08/14/22 at 2345, Until Wed09/25/22 at 1327, Low blood sugar, For BG 50-70 mg/dL: Oral treatment preferred: If able to drink, give 120 mL Juice or Regular (not diet) soda OR If NPO, give 15 gram glucose 40% oral gel massaged into buccal mucosa OR if unconscious or uncooperative, give 25 gram (250 mL) Dextrose 10% IV over 15 minutes per protocol OR, if no IV access, 1 mg Glucagon IM. For BG less than 50 mg/dL: Oral treatment preferred: If able to drink, give 240 mL Juice or Regular (not diet) soda OR If NPO, give 30 gram glucose 40% oral gel massaged in buccal mucosa OR if unconscious or uncooperative, give 25 gram (250 mL) Dextrose 10% IV over 15 minutes per protocol OR, if no IV access, 1 mg Glucagon IM. Recheck BG in 30 minutes. May repeat juice/soda, gel, dextrose or glucagon once per episode. For persistent hypoglycemia, consider longer-acting treatment for the duration of the active insulin., Routine glucose (Glutose) 40% oral geL 15-30 g of glucose, Buccal, EVERY 30 MIN PRN, Starting on Wed08/14/22 at 2345, Until Wed09/25/22 at 1327, Low blood sugar, For BG 50-70 mg/dL: Oral treatment preferred: If able to drink, give 120 mL Juice or Regular (not diet) soda OR If NPO, give 15 gram glucose 40% oral gel massaged into buccal mucosa OR if unconscious or uncooperative, give 25 gram (250 mL) Dextrose 10% IV over 15 minutes per protocol OR, if no IV access, 1 mg Glucagon IM. For BG less than 50 mg/dL: Oral treatment preferred: If able to drink, give 240 mL Juice or Regular (not diet) soda OR If NPO, give 30 gram glucose 40% oral gel massaged in buccal mucosa OR if unconscious or uncooperative, give 25 gram (250 mL) Dextrose 10% IV over 15 minutes per protocol OR, if no IV access, 1 mg Glucagon IM. Recheck BG in 30 minutes. May repeat juice/soda, gel, dextrose or glucagon once per episode. For persistent hypoglycemia, consider longer-acting treatment for the duration of the active insulin. 1 tube of Glutose-15 contains 15 grams of glucose (net weight of tube = 37.5 grams.), Routine heparin (porcine) (1,000 units/mL) injection 0-4,000 Units 0-4,000 Units, Intravenous, BOLUS PER HEPARIN PROTOCOL, Starting on Wed08/14/22 at 2345, Until Wed08/17/22 at 0911, Per Protocol, START ADJUSTMENT SCHEDULE 6 HOURS AFTER STARTING INFUSION Bolus doses are rounded to the nearest 100 units. If Heparin UFH Level is: - Less than 0.1 international unit/mL: Bolus 60 units/kg (Maximum of 4,000 units) = Bolus 4,000 units - 0.1 - 0.19 International unit/mL: Bolus 30 units/kg (Maximum of 2,000 units) = Bolus 2,000 units - Equal to or greater than 0.2 international unit/mL: No Bolus, Routine Given 08/17/2022 1:22 AM EDT 2,000 Units heparin (porcine) (5,000 units/1 mL) subcutaneous injection 5,000 Units 5,000 Units, Subcutaneous, EVERY 12 HOURS SCHEDULED (2 times per day), First dose on Wed08/17/22 at 1100, Until Discontinued, Routine Given 08/23/2022 9:07 PM EDT 5,000 Units Given 08/23/2022 9:44 AM EDT 5,000 Units Given 08/22/2022 9:00 PM EDT 5,000 Units heparin (porcine) 50 units/mL in dextrose 5% 500 mL infusion 0-5,000 Units/hr (0-100 mL/hr), Intravenous, CONTINUOUS, Starting on 08/15/22 at 0045, Until Wed08/17/22 at 0911, Begin infusion at 850 units per hr (12 units/kg/hr). Maximum initial infusion rate is 1,000 units/hr. Infusion doses are rounded to the nearest 50 units. Target Heparin UFH Level (anti-Xa activity) = 0.3 - 0.7 international unit/mL Start adjustment schedule 6 hours after starting infusion. If Heparin UFH Level is: - Less than 0.1 international unit/mL: Administer PRN bolus and increase rate by 300 units per hr (4 units/kg/hr) - 0.1 - 0.19 international unit/mL: Administer PRN bolus and increase rate by 150 units per hr (2 units/kg/hr) - 0.2 - 0.29 international unit/mL: NO BOLUS and increase rate by 150 units per hr (2 units/kg/hr) - 0.3 - 0.7 international unit/mL: No change - 0.71 - 0.79 international unit/mL: NO BOLUS and decrease rate by 50 units per hr (1 units/kg/hr) - 0.8 - 0.99 international unit/mL: NO BOLUS and decrease rate by 150 units per hr (2 units/kg/hr) - Greater than or equal to 1.00 international unit/mL: Hold infusion for 60 minutes then decrease rate by 200 units per hour (3 units/kg/hr) Repeat Heparin UFH Level 6 hours after initiating heparin. Then 6 hours after each dose adjustment. When 2 consecutive Heparin UFH Level within target range of 0.3 - 0.7 international unit/mL, change Heparin UFH Level to once every 24 hours with A.M. labs while on heparin. RN to order required Heparin UFH Level - Per Protocol, Routine Rate/Dose Verify 08/17/2022 8:00 AM EDT 850 Units/hr 17 mL/hr Rate/Dose Verify 08/17/2022 6:11 AM EDT 850 Units/hr 17 mL /hr Rate/Dose Verify 08/17/2022 4:20 AM EDT 850 Units/hr 17 mL /hr HYDROmorphone (Dilaudid) (0.2 mg/1 mL) injection syringe 0.2 mg 0.2 mg, Intravenous, ONCE, 1 dose, On Wed09/21/22 at 0300, STAT Given 09/21/2022 2:17 AM EDT 0.2 mg HYDROmorphone (Dilaudid) tablet 1 mg 1 mg, Oral, ONCE, 1 dose, On Wed08/24/22 at 1330, Routine Given 08/24/2022 1:03 PM EDT 1 mg insulin glargine-ygfn (Semglee) (100 unit/mL) subcutaneous injection vial 10 Units 10 Units, Subcutaneous, DAILY, First dose (after last modification) on Wed09/06/22 at 0915, Until Discontinued, Routine Given 09/07/2022 8:53 AM EDT 10 Units Given 09/06/2022 9:36 AM EDT 10 Units insulin glargine-ygfn (Semglee) (100 unit/mL) subcutaneous injection vial 10 Units 10 Units, Subcutaneous, NIGHTLY, First dose on Wed09/23/22 at 2100, Until Discontinued, Routine Given 09/24/2022 8:47 PM EDT 10 Units Given 09/23/2022 8:18 PM EDT 10 Units insulin glargine-ygfn (Semglee) (100 unit/mL) subcutaneous injection vial 10 Units 10 Units, Subcutaneous, DAILY, First dose (after last modification) on Wed09/25/22 at 0900, Until Discontinued, Routine Given 09/25/2022 8:24 AM EDT 10 Units Right Upper Outer Quadrant insulin glargine-ygfn (Semglee) (100 unit/mL) subcutaneous injection vial 14 Units 14 Units, Subcutaneous, DAILY, First dose (after last modification) on Wed09/02/22 at 0900, Until Discontinued, Routine Given 09/04/2022 8:13 AM EDT 14 Units Given 09/03/2022 9:44 AM EDT 14 Units Given 09/02/2022 8:40 AM EDT 14 Units insulin glargine-ygfn (Semglee) (100 unit/mL) subcutaneous injection vial 16 Units 16 Units, Subcutaneous, DAILY, First dose (after last modification) on Wed09/01/22 at 0900, Until Discontinued, STAT Given 09/01/2022 8:41 AM EDT 16 Units insulin glargine-ygfn (Semglee) (100 unit/mL) subcutaneous injection vial 20 Units 20 Units, Subcutaneous, DAILY, First dose (after last modification) on Wed08/31/22 at 1115, Until Discontinued, STAT Given 08/31/2022 10:26 AM EDT 20 Units insulin glargine-ygfn (Semglee) (100 unit/mL) subcutaneous injection vial 23 Units 23 Units, Subcutaneous, DAILY, First dose (after last modification) on Wed08/29/22 at 0915, Until Discontinued, Routine Given 08/30/2022 9:12 AM EDT 23 Unit s Given 08/29/2022 9:18 AM EDT 23 Units insulin glargine-ygfn (Semglee) (100 unit/mL) subcutaneous injection vial 25 Units 25 Units, Subcutaneous, DAILY, First dose on Wed08/25/22 at 1315, Until Discontinued, Routine Given 08/28/2022 10:16 AM EDT 25 Units Given 08/27/2022 9:19 AM EDT 25 Units Given 08/26/2022 8:39 AM EDT 25 Units insulin glargine-ygfn (Semglee) (100 unit/mL) subcutaneous injection vial 7 Units 7 Units, Subcutaneous, DAILY, First dose (after last modification) on Wed09/05/22 at 0900, Until Discontinued, Routine Given 09/05/2022 9:53 AM EDT 7 Units insulin lispro (HumaLOG;Admelog) (100 unit/mL) subcutaneous injection vial 1-10 Units 1-10 Units, Subcutaneous, EVERY 4 HOURS SCHEDULED, First dose (after last modification) on Wed09/06/22 at 1200, Until Discontinued, CORRECTION BOLUS [1-10 Units] Correction Factor 15 BG 140 - 155 Give 1 units BG 156 - 170 Give 2 units BG 171 - 185 Give 3 units BG 186 - 200 Give 4 units BG 201 - 215 Give 5 units BG 216 - 230 Give 6 units BG 231 - 245 Give 8 units BG greater than 245, give 10 units and recheck BG in 2 hours. If BG remains greater than 245, 10 units (no more than TWO times) & call for new basal insulin orders. If less than 245 after two hours, give no insulin and resume prior schedule. DO NOT hold if NPO, unless specifically directed to do so by written order. Per Blood Glucose Monitoring Policy, re-check a BG of > 240 mg/dL in 2 hours., Routine Given 09/19/2022 7:03 AM EDT 6 Units Given 09/19/2022 3:51 AM EDT 3 Units Given 09/18/2022 11:56 PM EDT 3 Units insulin lispro (HumaLOG;Admelog) (100 unit/mL) subcutaneous injection vial 1-10 Units 1-10 Units, Subcutaneous, 4 TIMES DAILY BEFORE MEALS & NIGHTLY, First dose (after last modification) on 09/19/22 at 1200, Until Discontinued, CORRECTION BOLUS [1-10 Units] Correction Factor 15 BG 140 - 155 Give 1 units BG 156 - 170 Give 2 units BG 171 - 185 Give 3 units BG 186 - 200 Give 4 units BG 201 - 215 Give 5 units BG 216 - 230 Give 6 units BG 231 - 245 Give 8 units BG greater than 245, give 10 units and recheck BG in 2 hours. If BG remains greater than 245, 10 units (no more than TWO times) & call for new basal insulin orders. If less than 245 after two hours, give no insulin and resume prior schedule. DO NOT hold if NPO, unless specifically directed to do so by written order. Per Blood Glucose Monitoring Policy, re-check a BG of > 240 mg/dL in 2 hours., Routine Given 09/25/2022 6:31 AM EDT 1 Units Given 09/24/2022 8:46 PM EDT 6 Units Given 09/24/2022 4:47 PM EDT 8 Units insulin lispro (HumaLOG;Admelog) (100 unit/mL) subcutaneous injection vial 1-4 Units 1-4 Units, Subcutaneous, EVERY 4 HOURS SCHEDULED, First dose (after last modification) on Wed09/04/22 at 1999, Until Discontinued, CORRECTION BOLUS [1-4 Units] Correction Factor 40 1 unit of insulin is expected to lower blood glucose by 40 BG 160 -?200?Give 1 unit? BG?201 - 240?Give 2 units? BG 241 -?280?Give 3 units? BG greater than 280, give 4 units and recheck BG in 2 hours. If BG remains greater than 280, repeat 4 units (no more than three times) & call for new basal insulin orders.?If less than 280 after two hours, give no insulin and resume prior schedule. DO NOT hold if NPO, unless specifically directed to do so by written order. Per Blood Glucose Monitoring Policy, re-check a BG of > 240 mg/dL in 2 hours., Routine Given 09/05/2022 4:11 AM EDT 1 Units insulin lispro (HumaLOG;Admelog) (100 unit/mL) subcutaneous injection vial 1-5 Units 1-5 Units, Subcutaneous, EVERY 4 HOURS SCHEDULED, First dose (after last modification) on Wed08/26/22 at 1999, Until Discontinued, CORRECTION BOLUS [1-5 Units] Moderate Sliding Scale (BG in mg/dL): Correction factor 20 (1 unit of insulin is expected to drop the glucose 20 mg/dL) BG 160 - 180 Give 1 units BG 181 - 200 Give 2 units BG 201 - 220 Give 3 units BG 221 - 240 Give 4 units BG greater than 240, give 5 units and recheck BG in 2 hours. - If recheck BG is LESS than 240, give no insulin and resume schedule. - If recheck BG is GREATER than 240, give 5 units and repeat BG in 2 hours (no more than 3 times) & call for new insulin orders. DO NOT hold if NPO, unless specifically directed to do so by written order. Per Blood Glucose Monitoring Policy, re-check a BG of > 240 mg/dL in 2 hours., Routine Given 09/03/2022 7:33 PM EDT 1 Units Le ft Arm Given 09/03/2022 4:03 PM EDT 3 Units Given 09/03/2022 12:44 PM EDT 3 Units insulin lispro (HumaLOG;Admelog) (100 unit/mL) subcutaneous injection vial 1-6 Units 1-6 Units, Subcutaneous, EVERY 4 HOURS SCHEDULED, First dose on Wed08/25/22 at 1315, Until Discontinued, CORRECTION BOLUS [1-6 Units] Moderate Sliding Scale (BG in mg/dL): Correction factor 20 (1 unit of insulin is expected to drop the glucose 20 mg/dL) BG 140 - 160 Give 1 unit BG 161 - 180 Give 2 units BG 181 - 200 Give 3 units BG 201 - 220 Give 4 units BG 221 - 240 Give 5 units BG greater than 240, give 6 units and recheck BG in 2 hours. - If recheck BG is LESS than 240, give no insulin and resume schedule. - If recheck BG is GREATER than 240, give 6 units and repeat BG in 2 hours (no more than 3 times) & call for new insulin orders. DO NOT hold if NPO, unless specifically directed to do so by written order. Per Blood Glucose Monitoring Policy, re-check a BG of > 240 mg/dL in 2 hours., Routine Given 08/26/2022 8:02 AM EDT 4 Units Given 08/26/2022 4:42 AM EDT 1 Units Given 08/26/2022 12:20 AM EDT 3 Units insulin lispro (HumaLOG;Admelog) (100 unit/mL) subcutaneous injection vial 1-6 Units 1-6 Units, Subcutaneous, EVERY 4 HOURS SCHEDULED, First dose (after last modification) on Wed09/05/22 at 2000, Until Discontinued, CORRECTION BOLUS [1-6 Units] Custom correction factor 20 BG 160 - 180 Give 1 units BG 181 - 200 Give 2 units BG 201 - 220 Give 3 units BG 221 - 240 Give 4 units BG 241 - 260 Give 5 units BG greater than 260, give 6 units and recheck BG in 2 hours. If BG remains GREATER THAN 260, GIVE 6 units (no more than two times) & call for new basal insulin orders. If less than 260 after two hours, give no insulin and resume prior schedule. DO NOT hold if NPO, unless specifically directed to do so by written order. Per Blood Glucose Monitoring Policy, re-check a BG of > 240 mg/dL in 2 hours., Routine Given 09/05/2022 7:41 PM EDT 4 Units insulin lispro (HumaLOG;Admelog) (100 unit/mL) subcutaneous injection vial 4 Units 4 Units, Subcutaneous, EVERY 4 HOURS, First dose on Wed08/25/22 at 1315, Until Discontinued, While on TFs, Routine Given 08/26/2022 4:42 AM EDT 4 Units Given 08/26/2022 12:21 AM EDT 4 Units Given 08/25/2022 9:12 PM EDT 4 Units insulin lispro (HumaLOG;Admelog) (100 unit/mL) subcutaneous injection vial 5 Units 5 Units, Subcutaneous, EVERY 4 HOURS, First dose (after last modification) on Wed08/26/22 at 0930, Until Discontinued, While on TFs, Routine Given 08/27/2022 9:51 PM EDT 5 Units Given 08/27/2022 4:57 PM EDT 5 Units Given 08/27/2022 1:20 PM EDT 5 Units insulin lispro protamine-insulin lispro (HumaLOG MIX 75/25) (100 units/mL) subcutaneous injection vial 30 Units 30 Units, Subcutaneous, USER SPECIFIED (Daily), First dose on Wed08/30/22 at 0545, Until Discontinued, Please give 10-15 mins prior to initiating tube feeds each morning., Routine Given 08/31/2022 5:44 AM EDT 30 Units Given 08/30/2022 5:47 AM EDT 30 Units insulin lispro protamine-insulin lispro (HumaLOG MIX 75/25) (100 units/mL) subcutaneous injection vial 31 Units 31 Units, Subcutaneous, USER SPECIFIED (Daily), First dose (after last modification) on Wed09/01/22 at 0545, Until Discontinued, Please give 10-15 mins prior to initiating tube feeds each morning., Routine Given 09/01/2022 6:28 AM EDT 31 Units insulin lispro protamine-insulin lispro (HumaLOG MIX 75/25) (100 units/mL) subcutaneous injection vial 33 Units 33 Units, Subcutaneous, USER SPECIFIED (Daily), First dose (after last modification) on Wed09/02/22 at 0545, Until Discontinued, Please give 10-15 mins prior to initiating tube feeds each morning., Routine Given 09/03/2022 5:52 AM EDT 33 Units Given 09/02/2022 5:45 AM EDT 33 Units Le ft Arm insulin regular (Myxredlin) (1 unit/mL) bolus from infusion 0-8 Units 0-8 Units, Intravenous, PER INSULIN PROTOCOL, Starting on 08/15/22 at 0327, Until Wed08/25/22 at 1222, Per Protocol, BOLUS order. Type 1 Initial bolus 6 Units. Adjustment bolus per insulin infusion protocol: IV insulin Bolus scale: For BG in mg/dL (250-299 = 4 units, 300-359 = 6 units, greater than 360 = 8 units), Routine Bolus from Bag 08/15/2022 5:43 AM EDT 4 Units Bolus from Bag 08/15/2022 5:01 AM EDT 4 Units Bolus from Bag 08/15/2022 3:52 AM EDT 6 Units insulin regular (Myxredlin) (1 unit/mL) in sodium chloride 0.9% 100 mL infusion 0.5-8 Units/hr (0.5-8 mL/hr), Intravenous, CONTINUOUS, Starting on 08/15/22 at 0415, Until Wed08/25/22 at 1222, Intravenous, CHANGE BAG EVERY EVENING, Instructions Type 1 diabetes. Current blood glucose 300 - 359 Titration- aim for target range of 140 - 180 mg/dL. Check BG every hour. [[ Initial bolus of 6 units, then begin continuous infusion at 5 unit/hr. ]] If BG at the time the infusion is started is outside of the CURRENT BLOOD GLUCOSE range above, contact provider for new starting rate/bolus order. Current BG less than 80 - Stop insulin. If BG less than 70, treat per hypoglycemia protocol. Re-check BG in 30 minutes and as soon as BG is greater than 80, restart with rate 50% of previous rate. If infusion stopped after previous rate had been 0.5 unit/hour, recheck every hour and when BG greater than 100 and higher than last test restart at 0.5 unit/hour. , IF INFUSION IS PAUSED, TURN IT BACK ON SOON POSSIBLE, PER PROTOCOL. Current BG 80 - 139 - If BG dropped 10 mg/dL or more since last test, decrease rate by 50% and re-check in 30 minutes. Otherwise, decrease rate by 0.5 units/hour. Current BG 140 - 180 - If BG dropped 50 mg/dL or more since last test, decrease rate by 1 unit/hour. Otherwise, maintain same rate. Current BG 181 - 220 - If BG is lower than last test, maintain same rate. Otherwise, increase rate by 0.5 units/hour. Current BG 221 - 250 - If BG dropped 30 mg/dL or more since last test, maintain same rate. Otherwise, increase rate by 1 unit/hour. Current BG greater than 250 - Increase rate by 1 unit/hour AND bolus with Regular insulin IV as per IV Bolus Scale. Re-check BG in 30 minutes. THE FIRST DOSE OF SC INSULIN OUGHT TO BE ADMINISTERED BEFORE DISCONTINUING THE INFUSION. AN OVERLAP OF 2-3 HOURS IS RECOMMENDED. Continue to monitor the BG hourly., Routine Rate/Dose Verify 08/25/2022 12:00 PM EDT 1.75 Units/hr 1.8 mL/hr Rate/Dose Change 08/25/2022 11:10 AM EDT 1.75 Units/hr 1.8 mL/hr Rate/Dose Verify 08/25/2022 10:00 AM EDT 1.25 Units/hr 1.3 mL/hr insulin regular (Myxredlin) (1 unit/mL) in sodium chloride 0.9% 100 mL infusion 0.5-16 Units/hr (0.5-16 mL/hr), Intravenous, CONTINUOUS, Starting on Wed08/25/22 at 1330, Until Wed08/26/22 at 1104, Type 2 diabetes. Current blood glucose 180 - 239 Titration- aim for target range of 140 - 180 mg/dL. Check BG every hour unless otherwise indicated. [[ Initial bolus of 4 units, then begin continuous infusion at 3.5 units/hour. ]] If BG at the time the infusion is started outside of the CURRENT BLOOD GLUCOSE range above, contact MD for new starting rate/bolus order. When infusion is paused, turn it back on as soon as possible per protocol. If BG at the time the infusion is started is outside of the CURRENT BLOOD GLUCOSE range above, contact provider for new starting rate/bolus order. Current BG less than 80 - Stop insulin. If BG less than 70, treat per hypoglycemia protocol. Re-check BG in 30 minutes and as soon as BG is greater than 80, restart with rate 50% of previous rate. If infusion stopped after previous rate had been 0.5 unit/hour, recheck every hour and when BG greater than 100 and higher than last test restart at 0.5 unit/hour. IF INFUSION IS PAUSED, TURN IT BACK ON SOON POSSIBLE, PER PROTOCOL. Current BG 80 - 139 - If BG dropped 10 mg/dL or more since last test, decrease rate by 50% and re-check in 30 minutes. Otherwise, decrease rate by 0.5 units/hour. Current BG 140 - 180 - If BG dropped 50 mg/dL or more since last test, decrease rate by 1 unit/hour. Otherwise, maintain same rate. Current BG 181 - 220 - If BG is lower than last test, maintain same rate. Otherwise, increase rate by 0.5 units/hour. Current BG 221 - 250 - If BG dropped 30 mg/dL or more since last test, maintain same rate. Otherwise, increase rate by 1 unit/hour. Current BG greater than 250 - Increase rate by 1 unit/hour AND bolus with Regular insulin IV as per IV Bolus Scale. Re-check BG in 30 minutes. THE FIRST DOSE OF SC INSULIN OUGHT TO BE ADMINISTERED BEFORE DISCONTINUING THE INFUSION. AN OVERLAP OF 2-3 HOURS IS RECOMMENDED. Continue to monitor the BG hourly., Routine Rate/Dose Verify 08/25/2022 2:00 PM EDT 2.75 Units/hr 2.8 mL/hr Continued Bag 08/25/2022 12:22 PM EDT 2.75 Units/hr 2.8 mL /hr iohexoL (Omnipaque) (350 mg/mL) solution 0-200 mL 0-200 mL, Intravenous, ONCE PRN, 1 dose, Starting on Betty 08/20/22 at 2305, Until Betty 08/20/22 at 2302, Per Protocol, Warning Vesicant/Irritant Medication , Radiology Contrast, Routine Given 08/20/2022 11:02 PM EDT 110 mLs iohexoL (Omnipaque) (350 mg/mL) solution 0-200 mL 0-200 mL, Intravenous, ONCE PRN, 1 dose, Starting on Betty 08/27/22 at 0831, Until Betty 08/27/22 at 0857, Per Protocol, Warning Vesicant/Irritant Medication , Radiology Contrast, Routine Given 08/27/2022 8:57 AM EDT 92 mLs iron sucrose (Venofer) 300 mg in sodium chloride 0.9% 115 mL infusion 300 mg, Intravenous, ONCE, 1 dose, On Betty 09/03/22 at 1545, Administer over 90 Minutes, Patients should be closely monitored for signs of hypersensitivity during and for at least 30 min after each administration. The observation period is not needed for patients who have demonstrated tolerability. New Bag 09/03/2022 4:06 PM EDT 300 mg 76.7 mL/hr ketorolac (Toradol) (15 mg/mL) injection 15 mg 15 mg, Intravenous, ONCE, 1 dose, On 09/05/22 at 0500, Routine Given 09/05/2022 5:32 AM EDT 15 mg lactated Ringers 500 mL IV bolus at 250 mL/hr, Intravenous, ONCE, 1 dose, On 09/05/22 at 2330 New Bag 09/05/2022 11:01 PM EDT 250 mL/hr lidocaine (Glydo) 2 % gel 11 mL 11 mL, Topical (Top), ONCE, 1 dose, On Wed09/04/22 at 2145, 11 mL for procedure, STAT Given 09/04/2022 9:45 PM EDT 4 mLs lidocaine (Lidoderm) 5% patch 1 patch 1 patch, Transdermal, Administer over 12 Hours, EVERY 24 HOURS, First dose on Wed08/26/22 at 0945, Until Discontinued, Apply patch(es) for 12 hours, and then remove for 12 hours., Routine Patch Applied 08/26/2022 8:55 AM EDT 1 patch 15- Thigh Anterior (Left) lidocaine (Lidoderm) 5% patch 3 patch 3 patch, Transdermal, Administer over 12 Hours, EVERY 24 HOURS, First dose (after last modification) on Wed08/26/22 at 1130, Until Discontinued, Apply patch(es) for 12 hours, and then remove for 12 hours., Routine Patch Applied 09/07/2022 10:45 AM EDT 3 patches 20-Other (document in comment section) Patch Applied 09/06/2022 12:52 PM EDT 3 patches 20-Other (document in comment section) Patch Applied 08/29/2022 11:02 AM EDT 3 patches 07- Back Lower (Left) losartan (Cozaar) tablet 25 mg 25 mg, Oral, DAILY, First dose on Wed08/25/22 at 1015, Until Discontinued, Routine Given 08/28/2022 10:13 AM EDT 25 mg Given 08/27/2022 9:16 AM EDT 25 mg Given 08/26/2022 8:13 AM EDT 25 mg magnesium hydroxide (Milk of Magnesia) (80mg/mL) oral liquid 30 mL 30 mL, Oral, DAILY PRN, Starting on Wed08/24/22 at 0928, Until Wed08/25/22 at 1129, Constipation, 30 mL regular (400 mg/5 mL) = 10 mL concentrate (2400 mg/10 mL), Routine Given 08/24/2022 9:41 AM EDT 30 mLs magnesium sulfate 1 g in dextrose 5% 100 mL infusion 1 g, Intravenous, ONCE, 1 dose, On Wed08/17/22 at 0300, Administer over 60 Minutes New Bag 08/17/2022 2:26 AM EDT 1 g 100 mL/hr magnesium sulfate 2 g in sterile water 50 mL infusion 2 g, Intravenous, ONCE, 1 dose, On Wed08/15/22 at 0600, Administer over 120 Minutes New Bag 08/15/2022 6:39 AM EDT 2 g 25 mL/hr magnesium sulfate 2 g in sterile water 50 mL infusion 2 g, Intravenous, ONCE, 1 dose, On Wed08/17/22 at 1900, Administer over 120 Minutes Rate/Dose Verify 08/17/2022 8:00 PM EDT 25 mL/hr New Bag 08/17/2022 6:24 PM EDT 2 g 25 mL/hr magnesium sulfate 2 g in sterile water 50 mL infusion 2 g, Intravenous, ONCE, 1 dose, On Wed08/19/22 at 1930, Administer over 120 Minutes Rate/Dose Verify 08/19/2022 8:00 PM EDT 25 mL/hr New Bag 08/19/2022 7:04 PM EDT 2 g 25 mL/hr magnesium sulfate 2 g in sterile water 50 mL infusion 2 g, Intravenous, ONCE, 1 dose, On Wed08/23/22 at 0700, Administer over 120 Minutes Rate/Dose Verify 08/23/2022 8:00 AM EDT 25 mL/hr New Bag 08/23/2022 7:00 AM EDT 2 g 25 mL/hr magnesium sulfate 2 g in sterile water 50 mL infusion 2 g, Intravenous, ONCE, 1 dose, On Wed08/26/22 at 0800, Administer over 120 Minutes Rate/Dose Verify 08/26/2022 10:00 AM EDT 25 mL/hr New Bag 08/26/2022 8:04 AM EDT 2 g 25 mL/hr magnesium sulfate 2 g in sterile water 50 mL infusion 2 g, Intravenous, ONCE, 1 dose, On Wed08/31/22 at 0815, Administer over 120 Minutes New Bag 08/31/2022 8:16 AM EDT 2 g 25 mL/hr magnesium sulfate 2 g in sterile water 50 mL infusion 2 g, Intravenous, ONCE, 1 dose, On Wed09/02/22 at 1100, Administer over 120 Minutes Rate/Dose Verify 09/02/2022 12:00 PM EDT 25 mL/hr New Bag 09/02/2022 10:58 AM EDT 2 g 25 mL/hr magnesium sulfate 2 g in sterile water 50 mL infusion 2 g, Intravenous, ONCE, 1 dose, On Wed09/04/22 at 0815, Administer over 120 Minutes New Bag 09/04/2022 8:04 AM EDT 2 g 25 mL/hr magnesium sulfate 2 g in sterile water 50 mL infusion 2 g, Intravenous, ONCE, 1 dose, On Wed09/10/22 at 0800, Administer over 120 Minutes New Bag 09/10/2022 9:25 AM EDT 2 g 25 mL/hr magnesium sulfate 2 g in sterile water 50 mL infusion 2 g, Intravenous, ONCE, 1 dose, On Wed09/12/22 at 0815, Administer over 120 Minutes New Bag 09/12/2022 11:15 AM EDT 2 g 25 mL/hr melatonin tablet 6 mg 6 mg, Oral, NIGHTLY PRN, Starting on Wed08/27/22 at 1729, Until Wed09/03/22 at 1055, sleep, Routine Given 09/02/2022 11:08 PM EDT 6 mg Given 08/31/2022 8:54 PM EDT 6 mg melatonin tablet 6 mg 6 mg, Oral, NIGHTLY, First dose (after last modification) on Wed09/03/22 at 2100, Until Discontinued, Routine Given 09/05/2022 8:15 PM EDT 6 mg Given 09/04/2022 10:51 PM EDT 6 mg Given 09/03/2022 9:36 PM EDT 6 mg melatonin tablet 6 mg 6 mg, Per NG tube, NIGHTLY, First dose (after last modification) on 09/06/22 at 2100, Until Discontinued, Routine Given 09/11/2022 9:30 PM EDT 6 mg Given 09/09/2022 8:18 PM EDT 6 mg Given 09/08/2022 8:15 PM EDT 6 mg melatonin tablet 6 mg 6 mg, Per G Tube, NIGHTLY, First dose (after last modification) on 09/12/22 at 2100, Until Discontinued, Routine Given 09/24/2022 8:46 PM EDT 6 mg Given 09/23/2022 8:05 PM EDT 6 mg Given 09/22/2022 8:06 PM EDT 6 mg metoprolol succinate XL (Toprol-XL) tablet 25 mg 25 mg, Oral, DAILY, First dose on 08/29/22 at 0900, Until Discontinued, DO NOT CRUSH OR OPEN, Routine Given 08/29/2022 9:27 AM EDT 25 mg metoprolol tartrate (Lopressor) tablet 12.5 mg 12.5 mg, Oral, EVERY 12 HOURS SCHEDULED (2 times per day), First dose on Wed08/18/22 at 2100, Until Discontinued, Routine Given 08/22/2022 9:11 AM EDT 12.5 mg Given 08/21/2022 8:40 PM EDT 12.5 mg Given 08/21/2022 8:14 AM EDT 12.5 mg metoprolol tartrate (Lopressor) tablet 12.5 mg 12.5 mg, Per NG tube, EVERY 12 HOURS SCHEDULED (2 times per day), 13 doses, First dose (after last modification) on Wed08/22/22 at 2100, Last dose on Wed08/28/22 at 2100, Routine Given 08/28/2022 8:35 PM EDT 12.5 mg Given 08/28/2022 10:33 AM EDT 12.5 mg Given 08/27/2022 9:01 PM EDT 12.5 mg metoprolol tartrate (Lopressor) tablet 12.5 mg 12.5 mg, Oral, EVERY 12 HOURS SCHEDULED (2 times per day), First dose on Wed08/30/22 at 1115, Until Discontinued, Routine Given 09/04/2022 8:15 AM EDT 12.5 mg Given 09/03/2022 9:35 PM EDT 12.5 mg Given 09/03/2022 9:45 AM EDT 12.5 mg metoprolol tartrate (Lopressor) tablet 12.5 mg 12.5 mg, Oral, EVERY 12 HOURS SCHEDULED (2 times per day), First dose on Wed09/04/22 at 2100, Until Discontinued, Please crush and give with thickened liquids, Routine Given 09/05/2022 8:15 PM EDT 12.5 mg Given 09/05/2022 9:00 AM EDT 12.5 mg Given 09/04/2022 10:51 PM EDT 12.5 mg metoprolol tartrate (Lopressor) tablet 12.5 mg 12.5 mg, Per NG tube, EVERY 12 HOURS SCHEDULED (2 times per day), First dose (after last modification) on Wed09/06/22 at 0900, Until Discontinued, Please crush and give with thickened liquids, Routine Given 09/11/2022 9:30 PM EDT 12.5 mg Given 09/09/2022 8:17 PM EDT 12.5 mg Given 09/09/2022 10:06 AM EDT 12.5 mg metoprolol tartrate (Lopressor) tablet 12.5 mg 12.5 mg, Per G Tube, EVERY 12 HOURS SCHEDULED (2 times per day), First dose (after last modification) on Wed09/12/22 at 0900, Until Discontinued, Routine Given 09/15/2022 8:51 AM EDT 12.5 mg Given 09/14/2022 8:12 PM EDT 12.5 mg Given 09/14/2022 9:46 AM EDT 12.5 mg metoproloL tartrate (Lopressor) tablet 25 mg 25 mg, Oral, EVERY 12 HOURS SCHEDULED (2 times per day), First dose (after last modification) on Wed09/15/22 at 2100, Until Discontinued, Routine Given 09/15/2022 8:16 PM EDT 25 mg metoproloL tartrate (Lopressor) tablet 25 mg 25 mg, Per G Tube, EVERY 12 HOURS SCHEDULED (2 times per day), First dose (after last modification) on Wed09/16/22 at 0900, Until Discontinued, Routine Given 09/25/2022 8:23 AM EDT 25 mg Given 09/24/2022 8:46 PM EDT 25 mg Given 09/24/2022 9:17 AM EDT 25 mg miconazole (Micotin) 2 % powder Topical (Top), 2 TIMES DAILY, First dose on Wed08/30/22 at 2100, Until Discontinued Given 08/31/2022 8:26 AM EDT Given 08/30/2022 8:46 PM EDT miconazole nitrate (Remedy Phytoplex) 2 % ointment Topical (Top), 2 TIMES DAILY, First dose on Wed09/01/22 at 2100, 28 doses, Last dose on Wed09/15/22 at 0900, Apply to perineal rash BID Given 09/14/2022 8:19 PM EDT Given 09/13/2022 9:00 PM EDT Given 09/13/2022 9:08 AM EDT morphine (4 mg/mL) injection 1.2 mg 1.2 mg (rounded from 1 mg), Intravenous, ONCE, 1 dose, On Wed09/11/22 at 0400, Routine Given 09/11/2022 3:45 AM EDT 1.2 mg multivitamin with minerals (Thera M) tablet 1 tablet 1 tablet, Per NG tube, DAILY, First dose on Wed08/17/22 at 1730, Until Discontinued, Routine Given 08/27/2022 9:16 AM EDT 1 tablet Given 08/26/2022 8:13 AM EDT 1 tablet Given 08/25/2022 9:02 AM EDT 1 tablet NORepinephrine (Levophed) (16 mcg/mL) in dextrose 5% 250 mL infusion 0-100 mcg/min (0-375 mL/hr), Intravenous, CONTINUOUS, Starting on 08/15/22 at 0030, Until Betty 08/20/22 at 1430, Titrate to keep MAP greater than 65 mmHg. Start at 2 mcg/min and increase by 2 mcg/min every 3 minutes until goal reached. Do not exceed 200 mcg/min. Warning Vesicant/Irritant Medication, Routine Rate/Dose Change 08/19/2022 4:14 PM EDT 0 mcg/min 0 mL/hr Rate/Dose Verify 08/19/2022 4:00 PM EDT 2 mcg/min 7.5 mL/ hr Rate/Dose Verify 08/19/2022 2:00 PM EDT 2 mcg/min 7.5 mL/ hr nystatin (Mycostatin) cream Topical (Top), 2 TIMES DAILY, First dose on 08/31/22 at 2100, Until Discontinued, Apply to perineum infection Given 09/01/2022 8:51 AM EDT Given 08/31/2022 8:54 PM EDT ondansetron (pf) (Zofran) (2 mg/mL) injection 4 mg 4 mg, Intravenous, EVERY 8 HOURS PRN, Starting on 08/29/22 at 1439, Until 09/06/22 at 1642, Nausea Given 09/06/2022 2:15 PM EDT 4 mg Given 09/06/2022 8:43 AM EDT 4 mg Given 09/05/2022 7:41 PM EDT 4 mg ondansetron (pf) (Zofran) (2 mg/mL) injection 4 mg 4 mg, Intravenous, ONCE, 1 dose, On 09/06/22 at 1730 Given 09/06/2022 4:56 PM EDT 4 mg ondansetron (pf) (Zofran) (2 mg/mL) injection 4-8 mg 4-8 mg, Intravenous, EVERY 8 HOURS PRN, Starting on 09/06/22 at 1641, Until 09/20/22 at 1236, Nausea, Give 4mg for mild-mod nausea. Give 8mg for mod-severe nausea. If give 4mg and nausea is still present after 30 minutes can give additional 4mg dose. Given 09/15/2022 7:15 PM EDT 4 mg Given 09/13/2022 4:54 PM EDT 4 mg Given 09/11/2022 7:22 PM EDT 4 mg ondansetron (Zofran) tablet 8 mg 8 mg, Per G Tube, EVERY 8 HOURS PRN, Starting on Betty 09/17/22 at 2212, Until 09/25/22 at 1327, Nausea, Vomiting, Routine Given 09/25/2022 8:44 AM EDT 8 mg Given 09/24/2022 9:16 AM EDT 8 mg Given 09/23/2022 11:31 AM EDT 8 mg oxyCODONE (Roxicodone) tablet 5 mg 5 mg, Oral, ONCE, 1 dose, On Wed08/25/22 at 0930, Routine Given 08/25/2022 9:02 AM EDT 5 mg pantoprazole (Protonix) injection 40 mg 40 mg, Intravenous, 2 TIMES DAILY, First dose on 08/15/22 at 1115, Until Discontinued Given 09/15/2022 8:15 PM EDT 40 mg Given 09/15/2022 8:50 AM EDT 40 mg Given 09/14/2022 8:11 PM EDT [address] (Protonix) granules 40 mg 40 mg, Per G Tube, 2 TIMES DAILY, First dose on Wed09/16/22 at 0900, Until Discontinued, Add 10 mL of apple juice to the contents of one packet in a sterile cup and gently stir. Administer with a 60 mL syringe. Add an additional 10 mL of apple juice to rinse until the syringe is clear of granules. Given 09/25/2022 8:22 AM EDT 40 mg Given 09/24/2022 8:46 PM EDT 40 mg Given 09/24/2022 9:16 AM EDT 40 mg perflutren protein-A microsphers (Optison) (0.22 mg/mL) injection 3 mL 3 mL, Intravenous, ONCE PRN, 1 dose, Starting on Wed08/19/22 at 1130, Until Wed08/19/22 at 1030, for enhancement of sub-optimal echo images, Echo Lab (Intra-Procedure), Routine Given 08/19/2022 10:30 AM EDT 3 mLs piperacillin-tazobactam (Zosyn) 3.375 g vial attach to sodium chloride 0.9% 50 mL Mini-Bag Plus 3.375 g, Intravenous, EVERY 8 HOURS, First dose on Wed08/15/22 at 0100, Until Discontinued, Administer over 4 Hours, Warning Vesicant/Irritant Medication Do not administer or Y-site with lactated ringers., Indication for (Active or Suspected): Pneumonia (Community) New Bag 08/23/2022 9:45 AM EDT 3.375 g 12.5 mL/hr New Bag 08/23/2022 12:08 AM EDT 3.375 g 12.5 mL/hr New Bag 08/22/2022 5:42 PM EDT 3.375 g 12.5 mL/hr polyethylene glycoL (Miralax) packet 17 g 17 g, Oral, DAILY, First dose (after last modification) on 08/15/22 at 1000, Until Discontinued, Administer if no bowel movement within 48 hours to achieve: (1) One bowel movement at least every 48 hours, AND (2) without straining. If multiple PRN bowel medications ordered, start with polyethylene glycoL, then lactulose, then oral bisacodyL, then bisacodyL suppository, then magnesium citrate, then tap water enema. Multiple medications may be given concomitantly for constipation., Routine Given 08/16/2022 9:20 AM EDT 17 g Given 08/15/2022 10:08 AM EDT 17 g polyethylene glycoL (Miralax) packet 17 g 17 g, Per NG tube, DAILY PRN, Starting on 08/22/22 at 1029, Until Wed08/25/22 at 1129, Constipation, Administer if no bowel movement within 48 hours to achieve: (1) One bowel movement at least every 48 hours, AND (2) without straining. If multiple PRN bowel medications ordered, start with polyethylene glycoL, then lactulose, then oral bisacodyL, then bisacodyL suppository, then magnesium citrate, then tap water enema. Multiple medications may be given concomitantly for constipation., Routine Given 08/24/2022 9:40 AM EDT 17 g polyethylene glycoL (Miralax) packet 17 g 17 g, Per NG tube, DAILY PRN, Starting on Wed08/25/22 at 1128, Until Wed09/16/22 at 0736, Constipation, 1st line, Administer if no bowel movement within 48 hours to achieve: (1) One bowel movement at least every 48 hours, AND (2) without straining. If multiple PRN bowel medications ordered, start with polyethylene glycoL, then lactulose, then oral bisacodyL, then bisacodyL suppository, then magnesium citrate, then tap water enema. Multiple medications may be given concomitantly for constipation., Routine Given 08/30/2022 11:16 AM EDT 17 g Given 08/27/2022 10:07 AM EDT 17 g polyethylene glycoL (Miralax) packet 17 g 17 g, Per G Tube, DAILY PRN, Starting on Wed09/16/22 at 0736, Until Wed09/25/22 at 1327, Constipation, 1st line, Administer if no bowel movement within 48 hours to achieve: (1) One bowel movement at least every 48 hours, AND (2) without straining. If multiple PRN bowel medications ordered, start with polyethylene glycoL, then lactulose, then oral bisacodyL, then bisacodyL suppository, then magnesium citrate, then tap water enema. Multiple medications may be given concomitantly for constipation., Routine potassium chloride 10 mEq in sterile water 100 mL infusion 10 mEq, Intravenous, EVERY HOUR, 4 doses, First dose on Wed09/11/22 at 0700, Last dose on Wed09/11/22 at 1000, Administer over 60 Minutes, For serum K 3.3 - 3.8 mMol/L - Give 10 mEq IV x four doses (40 mEq total) Warning Vesicant/Irritant Medication New Bag 09/11/2022 11:31 AM EDT 10 mEq 100 mL/hr New Bag 09/11/2022 10:13 AM EDT 10 mEq 100 mL/hr New Bag 09/11/2022 8:35 AM EDT 10 mEq 100 mL/hr potassium chloride 20 mEq in sterile water 100 mL infusion 20 mEq, Intravenous, EVERY 1 HOUR PRN, Starting on 08/15/22 at 0508, Until 09/06/22 at 0944, Administer over 60 Minutes, hypokalemia, Administer for a serum potassium (mMol/L) of 3.9 - 4 See instructions for Potassium Protocol in online policies. New Bag 08/21/2022 5:08 PM EDT 20 mEq 100 mL/h r New Bag 08/15/2022 1:23 PM EDT 20 mEq 100 mL/hr potassium chloride 20 mEq in sterile water 100 mL infusion 20 mEq, Intravenous, EVERY 1 HOUR PRN, Starting on 08/15/22 at 0508, Until 09/06/22 at 0944, Administer over 60 Minutes, hypokalemia, Administer 2 doses for a serum potassium (mMol/L) of 3.3 - 3.8 See instructions for Potassium Protocol in online policies. New Bag 08/21/2022 4:48 AM EDT 20 mEq 100 mL/hr New Bag 08/19/2022 6:34 AM EDT 20 mEq 100 mL/hr New Bag 08/19/2022 5:32 AM EDT 20 mEq 100 mL/hr potassium chloride 20 mEq in sterile water 100 mL infusion 20 mEq, Intravenous, EVERY 1 HOUR PRN, Starting on 08/15/22 at 0508, Until 09/06/22 at 0944, Administer over 60 Minutes, hypokalemia, Administer 3 doses for a serum potassium (mMol/L) of 2.8 - 3.2 See instructions for Potassium Protocol in online policies. New Bag 08/24/2022 5:30 AM EDT 20 mEq 100 mL/hr New Bag 08/24/2022 4:15 AM EDT 20 mEq 100 mL/hr New Bag 08/16/2022 2:19 PM EDT 20 mEq 100 mL/hr potassium phosphate 15 mMol in sodium chloride 0.9% 250 mL infusion 15 mmol, Intravenous, ONCE, 1 dose, On Wed08/18/22 at 0500, Administer over 4 Hours, *10 mMol potassium phosphate contains 14.7 mEq potassium *15 mMol potassium phosphate contains 22 mEq potassium 08/18/2022 5:34 AM EDT 15 mmol 62.5 mL/hr potassium phosphate 15 mMol in sodium chloride 0.9% 250 mL infusion 15 mmol, Intravenous, ONCE, 1 dose, On Wed08/18/22 at 1000, Administer over 4 Hours, *10 mMol potassium phosphate contains 14.7 mEq potassium *15 mMol potassium phosphate contains 22 mEq potassium 08/18/2022 10:27 AM EDT 15 mmol 62.5 mL/hr potassium phosphate 15 mMol in sodium chloride 0.9% 250 mL infusion 15 mmol, Intravenous, EVERY 4 HOURS, 2 doses, First dose (after last reorder) on Wed08/19/22 at 0330, Last dose on Wed08/19/22 at 0730, Administer over 4 Hours, *10 mMol potassium phosphate contains 14.7 mEq potassium *15 mMol potassium phosphate contains 22 mEq potassium New 08/19/2022 8:21 AM EDT 15 mmol 62.5 mL/hr New Bag 08/19/2022 3:53 AM EDT 15 mmol 62.5 mL/hr potassium phosphate 15 mMol in sodium chloride 0.9% 250 mL infusion 15 mmol, Intravenous, ONCE, 1 dose, On Wed08/20/22 at 0915, Administer over 4 Hours, Administer over 4-6 hours New Bag 08/20/2022 10:48 AM EDT 15 mmol 62.5 mL/hr potassium, sodium phosphates (Neutra-Phos) 280-160-250 mg oral packet 3 g 3 g, Oral, 4 TIMES DAILY, 2 doses, First dose on Wed08/24/22 at 0900, Last dose on Wed08/24/22 at 1300, Take with full glass of water, Routine Given 08/24/2022 12:10 PM EDT 3 g Given 08/24/2022 9:41 AM EDT 3 g prochlorperazine (Compazine) (5 mg/mL) injection 5 mg 5 mg, Intravenous, EVERY 6 HOURS PRN, Starting on Wed09/07/22 at 1532, Until Wed09/20/22 at 1236, Nausea, Vomiting, Routine Given 09/10/2022 11:55 PM EDT 5 mg Given 09/10/2022 5:25 PM EDT 5 mg Given 09/07/2022 3:51 PM EDT 5 mg prochlorperazine (Compazine) tablet 10 mg 10 mg, Per G Tube, EVERY 6 HOURS PRN, Starting on 09/20/22 at 1236, Until Wed09/25/22 at 1327, Nausea, Vomiting, Maximum dose: 50 mg / 24 hrs, Routine Given 09/20/2022 12:46 PM EDT 10 mg propofoL (Diprivan) (10 mg/mL) bolus from infusion 10 mg 10 mg, Intravenous, EVERY 10 MIN PRN, Starting on Wed08/14/22 at 2335, Until Betty 08/20/22 at 1430, SAT resedation, Administer bolus dose of propofol of 10 mg. Propofol bolus may be repeated for an additional 10 mg. Wait 5 to 10 minutes to see onset effect from 1st bolus. Do not administer more than 20 mg in a 4 hour period., Routine Bolus from Infusion 08/16/2022 12:57 PM EDT 10 mg propofoL (Diprivan) (10 mg/mL) infusion 0-50 mcg/kg/min ? 69 kg (0-20.7 mL/hr), Intravenous, CONTINUOUS, Starting on 08/15/22 at 0030, Until Betty 08/20/22 at 1430, Titrate to sedation level of RASS Goal (-)1 to 0 . Start at 20 mcg/kg/min, adjust rate by 10 mcg/kg/min every 3 minutes. Once stable, reassess patient every 30 minutes. Rate not to exceed 50 mcg/kg/minute. Change rate only after assessing and documenting RASS. Reassess sedation scores within 30 minutes after every rate change. If under sedated, increase rate by 10 mcg/kg/min. If over sedated, hold sedative until target RASS (-)1 to 0 achieved and then restart at 50% of previous rate. Call warehouse director if goal not achieved at maximum rate. If SAT is ordered and if patient meets criteria for Spontaneous Awakening Trial, titrate per protocol., Routine New Bag 08/17/2022 1:10 PM EDT 15 mcg/kg/min 6.2 mL/hr Rate/Dose Change 08/17/2022 12:35 PM EDT 15 mcg/kg/min 6.2 mL/hr Rate/Dose Verify 08/17/2022 12:00 PM EDT 20 mcg/kg/min 8.3 mL/hr propofoL (Diprivan) (10 mg/mL) infusion 0-50 mcg/kg/min ? 72.5 kg (0-21.75 mL/hr, rounded to 0-21.8 mL/hr), Intravenous, CONTINUOUS, Starting on Wed08/21/22 at 1630, Until Wed08/21/22 at 1735, Titrate to sedation level of RASS Goal (-)1 to 0 . Start at 20 mcg/kg/min, adjust rate by 10 mcg/kg/min every 3 minutes. Once stable, reassess patient every 30 minutes. Rate not to exceed 50 mcg/kg/minute. Change rate only after assessing and documenting RASS. Reassess sedation scores within 30 minutes after every rate change. If under sedated, increase rate by 10 mcg/kg/min. If over sedated, hold sedative until target RASS (-)1 to 0 achieved and then restart at 50% of previous rate. Call warehouse director if goal not achieved at maximum rate. If SAT is ordered and if patient meets criteria for Spontaneous Awakening Trial, titrate per protocol., Routine New Bag 08/21/2022 4:21 PM EDT 50 mcg/kg/min 21.8 mL/hr propofoL (Diprivan) 10 mg/mL infusion 1 dose, Starting on Wed08/21/22 at 1536, Until Wed08/21/22 at 1621, Ute Gamboa: karolyn overrrandy protein powder 2 Scoop, Per NG tube, DAILY, First dose on Wed08/17/22 at 1730, Until Discontinued, Routine Given 08/26/2022 9:00 AM EDT 2 Scoops Given 08/25/2022 9:00 AM EDT 2 Scoops Given 08/24/2022 9:00 AM EDT 2 Scoops protein powder 2 Scoop, Per G Tube, DAILY, First dose on Wed09/18/22 at 0900, Until Discontinued, Routine Given 09/25/2022 9:00 AM EDT 2 Scoops Given 09/24/2022 9:00 AM EDT 2 Scoops Given 09/23/2022 9:00 AM EDT 2 Scoops QUEtiapine (SEROquel) tablet 100 mg 100 mg, Oral, NIGHTLY, First dose (after last modification) on Betty 08/27/22 at 2100, Until Discontinued, Please crush and mix with thickened liquids, Routine Given 09/05/2022 8:15 PM EDT 100 mg Given 09/04/2022 10:52 PM EDT 100 mg Given 09/03/2022 9:36 PM EDT 100 mg QUEtiapine (SEROquel) tablet 100 mg 100 mg, Per NG tube, NIGHTLY, First dose (after last modification) on Wed09/06/22 at 2100, Until Discontinued, Please crush and mix with thickened liquids, Routine Given 09/11/2022 9:30 PM EDT 100 mg Given 09/09/2022 8:17 PM EDT 100 mg Given 09/08/2022 8:15 PM EDT 100 mg QUEtiapine (SEROquel) tablet 100 mg 100 mg, Per G Tube, NIGHTLY, First dose (after last modification) on Wed09/12/22 at 2100, Until Discontinued, Routine Given 09/24/2022 8:46 PM EDT 100 mg Given 09/23/2022 8:05 PM EDT 100 mg Given 09/22/2022 8:06 PM EDT 100 mg QUEtiapine (SEROquel) tablet 25 mg 25 mg, Oral, ONCE, 1 dose, On Wed08/26/22 at 0030, Routine Given 08/25/2022 11:43 PM EDT 25 mg QUEtiapine (SEROquel) tablet 50 mg 50 mg, Oral, NIGHTLY, First dose (after last modification) on Wed08/26/22 at 2230, Until Discontinued, Routine Given 08/26/2022 9:42 PM EDT 50 mg sacubitriL-valsartan (Entresto) 24-26 mg per tablet 1 tablet 1 tablet, Oral, 2 TIMES DAILY, First dose on 08/29/22 at 1100, Until Discontinued, Please crush and mix with thickened liquids, Routine, Is this a continuation of home medication? No, This is a high cost medication that requires prior authorization by insurance.??Will you verify??that it is??approved/authorized by patient's insurance prior to discharge? Yes, For new starts, has the patient been off Yonathan inhibitors for at least 36 hours (due to risk of angioedema)? Yes Given 09/05/2022 8:15 PM EDT 1 tablet Given 09/05/2022 9:09 AM EDT 1 tablet Given 09/04/2022 10:51 PM EDT 1 tablet sacubitriL-valsartan (Entresto) 24-26 mg per tablet 1 tablet 1 tablet, Per NG tube, 2 TIMES DAILY, First dose (after last modification) on 09/06/22 at 0900, Until Discontinued, Please crush and mix with thickened liquids, Routine, Is this a continuation of home medication? No, This is a high cost medication that requires prior authorization by insurance.??Will you verify??that it is??approved/authorized by patient's insurance prior to discharge? Yes, For new starts, has the patient been off Yonathan inhibitors for at least 36 hours (due to risk of angioedema)? Yes Given 09/11/2022 9:30 PM EDT 1 tablet Given 09/09/2022 8:17 PM EDT 1 tablet Given 09/09/2022 10:06 AM EDT 1 tablet sacubitriL-valsartan (Entresto) 24-26 mg per tablet 1 tablet 1 tablet, Per G Tube, 2 TIMES DAILY, First dose (after last modification) on 09/12/22 at 0900, Until Discontinued, Please crush and mix with thickened liquids, Routine, Is this a continuation of home medication? No, This is a high cost medication that requires prior authorization by insurance.??Will you verify??that it is??approved/authorized by patient's insurance prior to discharge? Yes, For new starts, has the patient been off Yonathan inhibitors for at least 36 hours (due to risk of angioedema)? Yes Given 09/25/2022 8:22 AM EDT 1 tablet Given 09/24/2022 8:46 PM EDT 1 tablet Given 09/24/2022 9:16 AM EDT 1 tablet senna (Senokot) tablet 8.6 mg 8.6 mg, Oral, 2 TIMES DAILY, First dose on Wed08/24/22 at 1015, Until Discontinued, Routine Given 08/24/2022 9:40 AM EDT 8.6 mg senna (Senokot) tablet 8.6 mg 8.6 mg, Oral, 2 TIMES DAILY PRN, Starting on Wed08/25/22 at 1128, Until Wed09/25/22 at 1327, Constipation, 2nd line, Routine senna-docusate (Pericolace) 8.6-50 mg per tablet 2 tablet 2 tablet, Oral, 2 TIMES DAILY, First dose on 08/15/22 at 1000, Until Discontinued, Routine Given 08/19/2022 9:20 AM EDT 2 tablets Given 08/16/2022 9:12 PM EDT 2 tablets Given 08/16/2022 9:13 AM EDT 2 tablets sodium chloride 0.9 % (flush) (BD PosiFlush Normal Saline 0.9) flush 5 mL 5 mL, Intravenous, 2 TIMES DAILY, First dose on 08/15/22 at 0000, Until Discontinued, Routine Given 09/25/2022 8:25 AM EDT 5 mLs Given 09/24/2022 8:47 PM EDT 5 mLs Given 09/24/2022 9:17 AM EDT 5 mLs sodium phosphate 15 mMol in sodium chloride 0.9% 150 mL infusion 15 mmol, Intravenous, ONCE, 1 dose, On 08/17/22 at 0300, Administer over 4 Hours, Administer over 4-6 hours New Bag 08/17/2022 3:40 AM EDT 15 mmol 37.5 mL/hr spironolactone (Aldactone) (2 mg/mL) oral liquid 12.5 mg 12.5 mg, Per NG tube, DAILY, First dose on Wed09/15/22 at 1015, Until Discontinued, Routine Given 09/15/2022 10:54 AM EDT 12.5 mg spironolactone (Aldactone) (2 mg/mL) oral liquid 12.5 mg 12.5 mg, Per G Tube, DAILY, First dose (after last modification) on Wed09/16/22 at 0900, Until Discontinued, Routine Given 09/25/2022 8:23 AM EDT 12.5 mg Given 09/24/2022 9:14 AM EDT 12.5 mg Given 09/23/2022 8:39 AM EDT 12.5 mg spironolactone (Aldactone) tablet 12.5 mg 12.5 mg, Oral, DAILY, First dose on Wed08/27/22 at 1200, Until Discontinued, DO NOT SPLIT, CRUSH OR OPEN, Routine Given 08/29/2022 9:27 AM EDT 12.5 mg Given 08/28/2022 10:12 AM EDT 12.5 mg Given 08/27/2022 11:34 AM EDT 12.5 mg thiamine (Vitamin B-1) (100 mg/mL) injection 100 mg 100 mg, Intravenous, DAILY, First dose on Wed08/15/22 at 0900, Until Discontinued, Doses of 100 mg are to be administered as IV push over 5 minutes. Doses of 200 mg or more should be mixed in 50 mL 0.9% Sodium Chloride and infused over 30 minutes. Given 09/11/2022 8:34 AM EDT 100 mg Given 09/10/2022 3:59 PM EDT 100 mg Given 09/09/2022 10:06 AM EDT 100 mg thiamine (Vitamin B1) tablet 100 mg 100 mg, Per G Tube, DAILY, First dose on Wed09/13/22 at 0900, Until Discontinued, Routine Given 09/25/2022 8:22 AM E DT 100 mg Given 09/24/2022 9:16 AM EDT 100 mg Given 09/23/2022 8:37 AM EDT 100 mg traZODone (Desyrel) tablet 25 mg 25 mg, Oral, ONCE, 1 dose, On Wed08/25/22 at 0115, Routine Given 08/25/2022 12:46 AM EDT 25 mg tube feeding diet 900 mL, Per NG tube, at 45 mL/hr, CONTINUOUS, Starting on Wed08/17/22 at 1730, Until Wed08/27/22 at 1042, Administer flushes and check residuals per policy, Which tube feed product? Peptamen AF, Strength: FULL Strength, Initial Rate: (mL/hr): 20, Advance by: (mL): 10, Advance every: Q4H New Bag 08/26/2022 5:13 PM EDT 900 mLs 45 mL/hr Rate/Dose Verify 08/26/2022 12:00 PM EDT 45 mL/ hr Rate/Dose Verify 08/26/2022 10:00 AM EDT 45 mL/ hr tube feeding diet 1,176 mL, Per NG tube, at 98 mL/hr, Cyclic-(Tube feed), Starting on Wed08/27/22 at 1200, Until Wed08/31/22 at 1651, Cycle x12hrs from [id number] Administer flushes and check residuals per policy, Which tube feed product? Peptamen AF, Strength: FULL Strength, Initial Rate: (mL/hr): 45, Advance by: (mL): 10, Advance every: Q4H, Goal final rate: (mL/hr): 98, Additional Information (if any): Cycle x12hrs from [id number] New Bag 08/31/2022 5:54 AM EDT 1,176 mLs 98 mL/hr Rate/Dose Verify 08/30/2022 9:00 AM EDT 98 mL/h r New Bag 08/30/2022 6:03 AM EDT 1,176 mLs 98 mL/hr tube feeding diet 1,320 mL, Per NG tube, at 110 mL/hr, Cyclic-(Tube feed), Starting on Wed08/31/22 at 1745, Until Wed09/07/22 at 1445, Cycle x12hrs from 8169-2582 daily Administer flushes and check residuals per policy, Which tube feed product? Peptamen AF, Strength: FULL Strength, Additional Information (if any): Cycle x12hrs from 4210-2461 daily Rate/Dose Verify 09/07/2022 8:39 AM EDT 110 mL/hr New Bag 09/07/2022 6:11 AM EDT 1,320 mLs 110 mL/hr New Bag 09/06/2022 5:43 AM EDT 1,320 mLs 110 mL/hr tube feeding diet 1,260 mL, Per NG tube, at 90 mL/hr, Cyclic-(Tube feed), Starting on 09/07/22 at 1545, Until 09/12/22 at 1236, Cycle x 14 hrs from 8469-0143 daily Administer flushes and check residuals per policy, Which tube feed product? Peptamen AF, Strength: FULL Strength, Additional Information (if any): Cycle x 14 hrs from 5803-3676 daily Restarted 09/08/2022 5:00 PM EDT 90 mL/hr New Bag 09/07/2022 9:26 PM EDT 1,260 mLs 90 mL/hr New Bag 09/07/2022 5:14 PM EDT 1,260 mLs 90 mL/hr tube feeding diet 1,260 mL, Per G Tube, at 90 mL/hr, Cyclic-(Tube feed), Starting on 09/12/22 at 1330, Until Wed09/23/22 at 2056, Cycle x 14 hrs from [id number] daily Administer flushes and check residuals per policy, Which tube feed product? Peptamen AF, Strength: FULL Strength, Additional Information (if any): Cycle x 14 hrs from 2237-1450 daily New Bag 09/17/2022 9:47 PM EDT 1,260 mLs 90 mL/hr New Bag 09/17/2022 7:26 AM EDT 1,260 mLs 90 mL/hr Rate/Dose Verify 09/16/2022 11:30 AM EDT 90 mL/ hr tube feeding diet 1,008 mL, Per G Tube, at 72 mL/hr, Cyclic-(Tube feed), Starting on Wed09/18/22 at 0600, Until Wed09/25/22 at 1327, Cycle x 14 hrs from 4306-9524 daily Administer flushes and check residuals per policy, Which tube feed product? Nutren 1.5, Additional Information (if any): Cycle x 14 hrs from 6238-3538 daily New Bag 09/24/2022 6:16 AM EDT 1,008 mLs 72 mL/hr New Bag 09/23/2022 8:10 PM EDT 1,008 mLs 72 mL/hr New Bag 09/23/2022 6:00 AM EDT 1,008 mLs 72 mL/hr Valproate (Depakene) (50 mg/mL) oral liquid 190 mg 190 mg, Per NG tube, EVERY 6 HOURS, First dose (after last modification) on 08/22/22 at 1245, Until Discontinued, Routine Given 08/27/2022 5:21 AM EDT 190 mg Given 08/26/2022 11:29 PM EDT 190 mg Given 08/26/2022 5:25 PM EDT 190 mg Valproate (Depakene) (50 mg/mL) oral liquid 250 mg 250 mg, Per NG tube, EVERY 6 HOURS, First dose (after last modification) on Betty 08/27/22 at 1200, Until Discontinued, Routine Given 08/28/2022 6:55 AM EDT 250 mg Given 08/28/2022 12:09 AM EDT 250 mg Given 08/27/2022 6:19 PM EDT 250 mg Valproate (Depakene) (50 mg/mL) oral liquid 300 mg 300 mg, Per NG tube, EVERY 6 HOURS, First dose (after last modification) on Wed08/28/22 at 1200, Until Discontinued, Routine Given 09/04/2022 5:48 AM EDT 300 mg Given 09/04/2022 12:21 AM EDT 300 mg Given 09/03/2022 5:26 PM EDT 300 mg Valproate (Depakene) (50 mg/mL) oral liquid 300 mg 300 mg, Oral, EVERY 6 HOURS, First dose (after last modification) on Wed09/04/22 at 1800, Until Discontinued, Please mix with thickened liquid, Routine Given 09/06/2022 5:36 AM EDT 300 mg Given 09/06/2022 12:59 AM EDT 300 mg Given 09/05/2022 5:02 PM EDT 300 mg Valproate (Depakene) (50 mg/mL) oral liquid 300 mg 300 mg, Per NG tube, EVERY 6 HOURS, First dose (after last modification) on Wed09/06/22 at 1200, Until Discontinued, Please mix with thickened liquid, Routine Given 09/12/2022 3:07 AM EDT 300 mg Given 09/11/2022 9:29 PM EDT 300 mg Given 09/10/2022 2:40 AM EDT 300 mg Valproate (Depakene) (50 mg/mL) oral liquid 300 mg 300 mg, Per G Tube, EVERY 6 HOURS, First dose (after last modification) on 09/12/22 at 0900, Until Discontinued, Routine Given 09/25/2022 8:23 AM EDT 300 mg Given 09/25/2022 3:46 AM EDT 300 mg Given 09/24/2022 8:46 PM EDT 300 mg vancomycin (Vancocin) 1 gram in sodium chloride 0.9% 250 mL infusion 1 g, Intravenous, at 250 mL/hr, ONCE, 1 dose, On 08/15/22 at 0200, Maximum infusion rate is 1 gram/hour. If flushing of the face, neck, upper body, arms, and/or back occurs decrease infusion rate by 50% to reduce the severity of symptoms. This medication may have an associated drug lab level. Please see MAR for scheduled level. Warning Vesicant/Irritant Medication , Routine, Indication for (Active or Suspected): Bacteremia/Sepsis New Bag 08/15/2022 2:35 AM EDT 1 g 250 mL/hr vancomycin (Vancocin) 1 gram in sodium chloride 0.9% 250 mL infusion 1 g, Intravenous, at 250 mL/hr, EVERY 24 HOURS, First dose on Wed08/16/22 at 0200, Until Discontinued, Maximum infusion rate is 1 gram/hour. If flushing of the face, neck, upper body, arms, and/or back occurs decrease infusion rate by 50% to reduce the severity of symptoms. This medication may have an associated drug lab level. Please see MAR for scheduled level. Warning Vesicant/Irritant Medication , Routine, Indication for (Active or Suspected): Bacteremia/Sepsis New Bag 08/16/2022 1:34 AM EDT 1 g 250 mL/hr vancomycin (Vancocin) 1 gram in sodium chloride 0.9% 250 mL infusion 1 g, Intravenous, at 250 mL/hr, EVERY 24 HOURS, First dose (after last modification) on 08/17/22 at 2100, Until Discontinued, Maximum infusion rate is 1 gram/hour. If flushing of the face, neck, upper body, arms, and/or back occurs decrease infusion rate by 50% to reduce the severity of symptoms. This medication may have an associated drug lab level. Please see MAR for scheduled level. Warning Vesicant/Irritant Medication , Routine, Indication for (Active or Suspected): Bacteremia/Sepsis New Bag 08/17/2022 9:18 PM EDT 1 g 250 mL/hr vancomycin (Vancocin) 750 mg in sodium chloride 0.9% 250 mL infusion 750 mg, Intravenous, at 333.3 mL/hr, EVERY 24 HOURS, First dose (after last modification) on 08/17/22 at 0200, Until Discontinued, Maximum infusion rate is 1 gram/hour. If flushing of the face, neck, upper body, arms, and/or back occurs decrease infusion rate by 50% to reduce the severity of symptoms. This medication may have an associated drug lab level. Please see MAR for scheduled level. Warning Vesicant/Irritant Medication , Routine, Indication for (Active or Suspected): Bacteremia/Sepsis New Bag 08/17/2022 2:49 AM EDT 750 mg 333.3 mL/hr vasopressin (Vasostrict) (0.2 units/mL) 100 mL infusion 0.04 Units/min (12 mL/hr), Intravenous, CONTINUOUS, Starting on 08/15/22 at 1245, Until 08/16/22 at 0956, DO NOT TITRATE: Do not exceed 0.04 units/min. Warning Vesicant/Irritant Medication New Bag 08/16/2022 8:49 AM EDT 0.04 Units/min 12 mL/hr Rate/Dose Verify 08/16/2022 8:00 AM EDT 0.04 Units/min 12 mL/hr New Bag 08/16/2022 1:36 AM EDT 0.04 Units/min 12 mL/hr vasopressin (Vasostrict) (0.2 units/mL) 100 mL infusion 0-0.08 Units/min (0-24 mL/hr), Intravenous, CONTINUOUS, Starting on 08/16/22 at 1045, Until Betty 08/20/22 at 1442, Start at 0.04 units/min. Goal MAP 65. Warning Vesicant/Irritant Medication Rate/Dose Verify 08/17/2022 8:00 AM EDT 0.01 Units/min 3 mL/hr New Bag 08/17/2022 7:41 AM EDT 0.01 Units/min 3 mL/hr Continued Bag 08/17/2022 6:48 AM EDT 0.01 Units/min 3 mL/h r documented in this encounter Active and Recently Administered Medications Times are shown in EDT. Scheduled Medication Order 09/23/2022 09/24/2022 09/25/2022 acetaminophen (Tylenol) tablet 650 mg 650 mg, Per G Tube, 4 TIMES DAILY, First dose (after last modification) on 09/19/22 at 1300, Until Discontinued, Maximum dose of acetaminophen is 4,000 mg from all sources in 24 hours. When ordered for pain, acetaminophen should be given even when other ordered pain medications are indicated. , Routine 0835 (Given - Provider: Leann Harding RN)1300 (Given - Provider: Leann Harding RN)1648 (Given - Provider: Leann Harding RN)2005 (Given - Provider: Sofia Montoya RN) 0916 (Given - Provider: Leann Harding RN)1235 (Given - Provider: Leann Harding RN)1646 (Given - Provider: Leann Harding RN)2046 (Given - Provider: Nubia Greenwood RN) 0823 (Given - Provider: Leann Harding RN) atorvastatin (Lipitor) tablet 80 mg 80 mg, Per G Tube, EVERY EVENING, First dose (after last modification) on 09/12/22 at 1700, Until Discontinued, Routine 1649 (Given - Provider: Leann Harding RN) 1646 (Given - Provider: Leann Harding RN) buPROPion (Wellbutrin) tablet 100 mg 100 mg, Per G Tube, DAILY, First dose (after last modification) on 09/12/22 at 0900, Until Discontinued, Routine 0836 (Given - Provider: Leann Harding RN) 0917 (Given - Provider: Leann Harding RN) 0823 (Given - Provider: Leann Harding RN) chlorhexidine (Peridex) 0.12 % oral solution 15 mL 15 mL, Oral, 2 TIMES DAILY, First dose on 08/15/23 at 1000, Until Discontinued, Routine 0837 (Given - Provider: Leann Harding RN)2018 (Given - Provider: Sofia Montoya RN) 0914 (Given - Provider: Leann Harding RN)2045 (Given - Provider: Nubia Greenwood RN) 0823 (Given - Provider: Leann Harding RN) empagliflozin (Jardiance) tablet 10 mg 10 mg, Oral, DAILY, First dose on Wed09/12/22 at 0900, Until Discontinued, Per G tube This medication should not be given with reduced PO intake/fluid loss, severe illness, or in patients with ketonemia or ketouria. , Routine, This medication should be held for 3 days prior to surgery. Is there a planned procedure within 3 days? No, Indication for empagliflozin: heart failure (HFpEF or HFrEF), Is this a new initiation for patients with heart failure (HFpEF or HFrEF) with or without diabetes? No 0836 (Given - Provider: Leann Harding RN) 0919 (Given - Provider: Leann Harding RN) 0822 (Given - Provider: Leann Harding RN) enoxaparin (Lovenox) (40 mg/0.4 mL) subcutaneous injection 40 mg 40 mg, Subcutaneous, EVERY 24 HOURS SCHEDULED (Daily), First dose on Wed08/24/22 at 1030, Until Discontinued, Routine 0837 (Given - Provider: Leann Harding RN) 0915 (Given - Provider: Leann Harding RN) 0900 (Not Given - Provider: Leann Harding RN - Reason: See comment) ergocalciferoL (vitamin D2) (8,000 units/mL) oral liquid 50,000 Units 50,000 Units, Per G Tube, WEEKLY, 5 doses, First dose (after last modification) on Wed09/15/22 at 0900, Last dose on Wed10/13/22 at 0900, Routine ferrous sulfate (60 mg/mL) oral liquid 300 mg 300 mg, Per G Tube, EVERY OTHER DAY, First dose (after last modification) on Wed09/12/22 at 0900, Until Discontinued, Each mL contains 12 mg of elemental iron, Routine 0916 (Given - Provider: Leann Harding RN) folic acid (Vitamin B9) tablet 1,000 mcg 1,000 mcg, Per G Tube, DAILY, First dose (after last modification) on Wed09/12/22 at 0900, Until Discontinued, Routine 0836 (Given - Provider: Leann Harding RN) 0916 (Given - Provider: Leann Harding RN) 08 (Given - Provider: Leann Harding RN) gabapentin (Neurontin) capsule 300 mg 300 mg, Per G Tube, 3 TIMES DAILY, First dose (after last modification) on Wed09/21/22 at 2100, Until Discontinued, Routine 0836 (Given - Provider: Leann Harding RN)1500 (Given - Provider: Leann Harding RN)2005 (Given - Provider: Sofia Montoya, ERI) 0916 (Given - Provider: Leann Harding RN)142 (Given - Provider: Leann Harding RN)2045 (Given - Provider: Nubia Greenwood, ERI) 821 (Given - Provider: Leann Harding RN) insulin glargine-ygfn (Semglee) (100 unit/mL) subcutaneous injection vial 10 Units (CANCELED) 10 Units, Subcutaneous, NIGHTLY, First dose on Wed09/23/22 at 2100, Until Discontinued, Routine 2017 (Given - Provider: Sofia Montoya, ERI) 2046 (Given - Provider: Nubia Greenwood, ERI) insulin glargine-ygfn (Semglee) (100 unit/mL) subcutaneous injection vial 10 Units 10 Units, Subcutaneous, DAILY, First dose (after last modification) on Wed09/25/22 at 0900, Until Discontinued, Routine 823 (Given - Provider: Leann Harding RN) insulin lispro (HumaLOG;Admelog) (100 unit/mL) subcutaneous injection vial 1-10 Units(Linked Group 1) 1-10 Units, Subcutaneous, 4 TIMES DAILY BEFORE MEALS & NIGHTLY, First dose (after last modification) on Wed09/19/22 at 1200, Until Discontinued, CORRECTION BOLUS [1-10 Units] Correction Factor 15 BG 140 - 155 Give 1 units BG 156 - 170 Give 2 units BG 171 - 185 Give 3 units BG 186 - 200 Give 4 units BG 201 - 215 Give 5 units BG 216 - 230 Give 6 units BG 231 - 245 Give 8 units BG greater than 245, give 10 units and recheck BG in 2 hours. If BG remains greater than 245, 10 units (no more than TWO times) & call for new basal insulin orders. If less than 245 after two hours, give no insulin and resume prior schedule. DO NOT hold if NPO, unless specifically directed to do so by written order. Per Blood Glucose Monitoring Policy, re-check a BG of > 240 mg/dL in 2 hours., Routine 0630 (Given - Provider: Marlene Tejeda RN)1138 (Given - Provider: Mel Hernandez RN)1402 (Given - Provider: Elsa Farrell LPN - Comment: 1400 RECHECK IS 276, COVERED PER ORDER)163 (Not Given - Provider: Leann Harding RN - Reason: Order parameters not met - Comment: bg 94)2014 (Given - Provider: Sofia Montoya RN - Comment: BG 226) 0638 (Given - Provider: Sofia Montoya RN - Comment: BG 186)1153 (Given - Provider: Leann Harding RN)164 (Given - Provider: Leann Harding RN)2045 (Given - Provider: Nubia Greenwood RN) 0631 (Given - Provider: Nubia Greenwood RN) melatonin tablet 6 mg 6 mg, Per G Tube, NIGHTLY, First dose (after last modification) on Wed09/12/22 at 2100, Until Discontinued, Routine 2004 (Given - Provider: Sofia Montoya RN) 2045 (Given - Provider: Nubia Greenwood RN) metoproloL tartrate (Lopressor) tablet 25 mg 25 mg, Per G Tube, EVERY 12 HOURS SCHEDULED (2 times per day), First dose (after last modification) on Wed09/16/22 at 0900, Until Discontinued, Routine 835 (Given - Provider: Leann Harding RN)2005 (Given - Provider: Sofia Montoya RN) 916 (Given - Provider: Leann Harding RN)2045 (Given - Provider: Nubia Greenwood RN) 08 (Given - Provider: Leann Harding RN) pantoprazole DR (Protonix) granules 40 mg 40 mg, Per G Tube, 2 TIMES DAILY, First dose on Wed09/16/22 at 0900, Until Discontinued, Add 10 mL of apple juice to the contents of one packet in a sterile cup and gently stir. Administer with a 60 mL syringe. Add an additional 10 mL of apple juice to rinse until the syringe is clear of granules. 0836 (Given - Provider: Leann Harding RN)2004 (Given - Provider: Sofia Montoya RN) 915 (Given - Provider: Leann Harding RN)2045 (Given - Provider: Nubia Greenowod RN) 821 (Given - Provider: Leann Harding RN) protein powder 2 Scoop, Per G Tube, DAILY, First dose on Wed09/18/22 at 0900, Until Discontinued, Routine 09 (Given - Provider: Leann Harding RN) 899 (Given - Provider: Leann Harding RN) 899 (Given - Provider: Leann Harding RN) QUEtiapine (SEROquel) tablet 100 mg 100 mg, Per G Tube, NIGHTLY, First dose (after last modification) on 09/12/22 at 2100, Until Discontinued, Routine 2004 (Given - Provider: Sofia Montoya RN) 2045 (Given - Provider: Nubia Greenwood RN) sacubitriL-valsartan (Entresto) 24-26 mg per tablet 1 tablet 1 tablet, Per G Tube, 2 TIMES DAILY, First dose (after last modification) on 09/12/22 at 0900, Until Discontinued, Please crush and mix with thickened liquids, Routine, Is this a continuation of home medication? No, This is a high cost medication that requires prior authorization by insurance.??Will you verify??that it is??approved/authorized by patient's insurance prior to discharge? Yes, For new starts, has the patient been off Yonathan inhibitors for at least 36 hours (due to risk of angioedema)? Yes 0838 (Given - Provider: Leann Harding RN)2005 (Given - Provider: Sofia Montoya RN) 915 (Given - Provider: Leann Harding RN)2045 (Given - Provider: Nubia Greenwood RN) 821 (Given - Provider: Leann Harding RN) sodium chloride 0.9 % (flush) (BD PosiFlush Normal Saline 0.9) flush 5 mL 5 mL, Intravenous, 2 TIMES DAILY, First dose on 08/15/22 at 0000, Until Discontinued, Routine 0838 (Given - Provider: Leann Harding RN)2018 (Given - Provider: Sofia Montoya RN) 0917 (Given - Provider: Leann Harding RN)2046 (Given - Provider: Nubia Greenwood RN) 0825 (Given - Provider: Leann Harding RN) spironolactone (Aldactone) (2 mg/mL) oral liquid 12.5 mg 12.5 mg, Per G Tube, DAILY, First dose (after last modification) on Wed09/16/22 at 0900, Until Discontinued, Routine 0839 (Given - Provider: Leann Harding RN) 0914 (Given - Provider: Leann Harding RN) 0823 (Given - Provider: Leann Harding RN) thiamine (Vitamin B1) tablet 100 mg 100 mg, Per G Tube, DAILY, First dose on Wed09/13/22 at 0900, Until Discontinued, Routine 0837 (Given - Provider: Leann Harding RN) 0916 (Given - Provider: Leann Harding RN) 0822 (Given - Provider: Leann Harding RN) Valproate (Depakene) (50 mg/mL) oral liquid 300 mg 300 mg, Per G Tube, EVERY 6 HOURS, First dose (after last modification) on 09/12/22 at 0900, Until Discontinued, Routine 0312 (Given - Provider: Sofia Montoya RN)0837 (Given - Provider: Leann Harding RN)1500 (Given - Provider: Leann Harding RN)2008 (Given - Provider: Sofia Montoya, ERI) 0321 (Given - Provider: Sofia Montoya, ERI)0914 (Given - Provider: Leann Harding RN)142 (Given - Provider: Leann Harding RN)2045 (Given - Provider: Nubia Greenwood RN) 0346 (Given - Provider: Nubia Greenwood RN)0823 (Given - Provider: Leann Harding RN) Continuous Medication Order 09/23/2022 09/24/2022 09/25/2022 tube feeding diet 1,008 mL, Per G Tube, at 72 mL/hr, Cyclic-(Tube feed), Starting on Wed09/18/22 at 0600, Until Wed09/25/22 at 1327, Cycle x 14 hrs from 2344-6038 daily Administer flushes and check residuals per policy, Which tube feed product? Nutren 1.5, Additional Information (if any): Cycle x 14 hrs from 8043-1314 daily 0600 (New Bag - Provider: Sofia Montoya, RN)2009 (New Bag - Provider: Sofia Montoya, RN) 615 (New Bag - Provider: Sofia Montoya, RN)2035 (Stopped - Provider: Nubia Greenwood RN) PRN Medication Order 09/23/2022 09/24/2022 09/25/2022 bisacodyL (Dulcolax) suppository 10 mg 10 mg, Rectal, DAILY PRN, Starting on Wed08/25/22 at 1129, Until Wed09/25/22 at 1327, Constipation, 3rd line, Routine dextrose 10% infusion(Linked Group 2) 250 mL, at 1,000 mL/hr, Intravenous, EVERY 30 MIN PRN, Starting on Wed08/14/22 at 2345, Until Wed09/25/22 at 1327, For BG 50-70 mg/dL: Oral treatment preferred: If able to drink, give 120 mL Juice or Regular (not diet) soda OR If NPO, give 15 gram glucose 40% oral gel massaged into buccal mucosa OR if unconscious or uncooperative, give 25 gram (250 mL) Dextrose 10% IV over 15 minutes per protocol OR, if no IV access, 1 mg Glucagon IM. For BG less than 50 mg/dL: Oral treatment preferred: If able to drink, give 240 mL Juice or Regular (not diet) soda OR If NPO, give 30 gram glucose 40% oral gel massaged in buccal mucosa OR if unconscious or uncooperative, give 25 gram (250 mL) Dextrose 10% IV over 15 minutes per protocol OR, if no IV access, 1 mg Glucagon IM. Recheck BG in 30 minutes. May repeat juice/soda, gel, dextrose or glucagon once per episode. For persistent hypoglycemia, consider longer-acting treatment for the duration of the active insulin. diclofenac (Voltaren) gel Topical (Top), 4 TIMES DAILY PRN, Pain, Starting on Wed09/05/22 at 0155, Until Wed09/25/22 at 1327, Apply topically to hip. Total dose not to exceed 32 grams per day over all affected joints. Doses should be measured using the dosing cards supplied with the product., Where is this medication being applied? Please also specify in administration instructions. Other / Hip, Dose of medication being applied? 4 gram dose glucagon (Glucagen) (1 mg/mL) injection solution 1 mg(Linked Group 2) 1 mg, Intramuscular, EVERY 30 MIN PRN, Starting on Wed08/14/22 at 2345, Until Wed09/25/22 at 1327, Low blood sugar, For BG 50-70 mg/dL: Oral treatment preferred: If able to drink, give 120 mL Juice or Regular (not diet) soda OR If NPO, give 15 gram glucose 40% oral gel massaged into buccal mucosa OR if unconscious or uncooperative, give 25 gram (250 mL) Dextrose 10% IV over 15 minutes per protocol OR, if no IV access, 1 mg Glucagon IM. For BG less than 50 mg/dL: Oral treatment preferred: If able to drink, give 240 mL Juice or Regular (not diet) soda OR If NPO, give 30 gram glucose 40% oral gel massaged in buccal mucosa OR if unconscious or uncooperative, give 25 gram (250 mL) Dextrose 10% IV over 15 minutes per protocol OR, if no IV access, 1 mg Glucagon IM. Recheck BG in 30 minutes. May repeat juice/soda, gel, dextrose or glucagon once per episode. For persistent hypoglycemia, consider longer-acting treatment for the duration of the active insulin., Routine glucose (Glutose) 40% oral geL(Linked Group 2) 15-30 g of glucose, Buccal, EVERY 30 MIN PRN, Starting on Wed08/14/22 at 2345, Until Wed09/25/22 at 1327, Low blood sugar, For BG 50-70 mg/dL: Oral treatment preferred: If able to drink, give 120 mL Juice or Regular (not diet) soda OR If NPO, give 15 gram glucose 40% oral gel massaged into buccal mucosa OR if unconscious or uncooperative, give 25 gram (250 mL) Dextrose 10% IV over 15 minutes per protocol OR, if no IV access, 1 mg Glucagon IM. For BG less than 50 mg/dL: Oral treatment preferred: If able to drink, give 240 mL Juice or Regular (not diet) soda OR If NPO, give 30 gram glucose 40% oral gel massaged in buccal mucosa OR if unconscious or uncooperative, give 25 gram (250 mL) Dextrose 10% IV over 15 minutes per protocol OR, if no IV access, 1 mg Glucagon IM. Recheck BG in 30 minutes. May repeat juice/soda, gel, dextrose or glucagon once per episode. For persistent hypoglycemia, consider longer-acting treatment for the duration of the active insulin. 1 tube of Glutose-15 contains 15 grams of glucose (net weight of tube = 37.5 grams.), Routine lidocaine (Xylocaine) 1% (10 mg/mL) injection 3 mg 3 mg (0.3 mL), Subcutaneous, ONCE PRN, 1 dose, Starting on Wed08/14/22 at 2312, Until Wed09/25/22 at 1327, for discomfort with PIV insertion, Routine ondansetron (Zofran) tablet 8 mg 8 mg, Per G Tube, EVERY 8 HOURS PRN, Starting on Wed09/17/22 at 2212, Until Wed09/25/22 at 1327, Nausea, Vomiting, Routine 1131 (Given - Provider: Mel Hernandez RN) 0916 (Given - Provider: Leann Harding RN) 0844 (Given - Provider: Leann Harding RN) polyethylene glycoL (Miralax) packet 17 g 17 g, Per G Tube, DAILY PRN, Starting on Wed09/16/22 at 0736, Until Wed09/25/22 at 1327, Constipation, 1st line, Administer if no bowel movement within 48 hours to achieve: (1) One bowel movement at least every 48 hours, AND (2) without straining. If multiple PRN bowel medications ordered, start with polyethylene glycoL, then lactulose, then oral bisacodyL, then bisacodyL suppository, then magnesium citrate, then tap water enema. Multiple medications may be given concomitantly for constipation., Routine prochlorperazine (Compazine) tablet 10 mg 10 mg, Per G Tube, EVERY 6 HOURS PRN, Starting on 09/20/22 at 1236, Until Wed09/25/22 at 1327, Nausea, Vomiting, Maximum dose: 50 mg / 24 hrs, Routine senna (Senokot) tablet 8.6 mg 8.6 mg, Oral, 2 TIMES DAILY PRN, Starting on Tu08/25/22 at 1128, Until Wed09/25/22 at 1327, Constipation, 2nd line, Routine sodium chloride 0.9 % (flush) (BD PosiFlush Normal Saline 0.9) flush 5-20 mL 5-20 mL, Intravenous, EVERY 1 MIN PRN, Starting on Wed08/14/22 at 2312, Until Wed09/25/22 at 1327, flush, Flush pertains to all indwelling lines. Flush per protocol found in the job aid using the link provided on this medication record., Routine Linked Groups Order Group 1: POCT Fingerstick Glucose (CANCELED) Routine, 4 TIMES DAILY BEFORE MEALS & AT BEDTIME, First occurrence on 09/19/22 at 1115, Until Specified, Consider choosing EVERY 4 HOURS as frequency for: - Type 1 Diabetes - At least 24 hours after coming off an insulin drip - At least 24 hours after admission for DKA - Hypoglycemia unawareness - Patients who are otherwise unstable Select the same frequency for the correction bolus insulin order And insulin lispro (HumaLOG;Admelog) (100 unit/mL) subcutaneous injection vial 1-10 UnitsJump to med 1-10 Units, Subcutaneous, 4 TIMES DAILY BEFORE MEALS & NIGHTLY, First dose (after last modification) on 09/19/22 at 1200, Until Discontinued, CORRECTION BOLUS [1-10 Units] Correction Factor 15 BG 140 - 155 Give 1 units BG 156 - 170 Give 2 units BG 171 - 185 Give 3 units BG 186 - 200 Give 4 units BG 201 - 215 Give 5 units BG 216 - 230 Give 6 units BG 231 - 245 Give 8 units BG greater than 245, give 10 units and recheck BG in 2 hours. If BG remains greater than 245, 10 units (no more than TWO times) & call for new basal insulin orders. If less than 245 after two hours, give no insulin and resume prior schedule. DO NOT hold if NPO, unless specifically directed to do so by written order. Per Blood Glucose Monitoring Policy, re-check a BG of > 240 mg/dL in 2 hours., Routine Group 2: glucose (Glutose) 40% oral geLJump to med 15-30 g of glucose, Buccal, EVERY 30 MIN PRN, Starting on Wed08/14/22 at 2345, Until Wed09/25/22 at 1327, Low blood sugar, For BG 50-70 mg/dL: Oral treatment preferred: If able to drink, give 120 mL Juice or Regular (not diet) soda OR If NPO, give 15 gram glucose 40% oral gel massaged into buccal mucosa OR if unconscious or uncooperative, give 25 gram (250 mL) Dextrose 10% IV over 15 minutes per protocol OR, if no IV access, 1 mg Glucagon IM. For BG less than 50 mg/dL: Oral treatment preferred: If able to drink, give 240 mL Juice or Regular (not diet) soda OR If NPO, give 30 gram glucose 40% oral gel massaged in buccal mucosa OR if unconscious or uncooperative, give 25 gram (250 mL) Dextrose 10% IV over 15 minutes per protocol OR, if no IV access, 1 mg Glucagon IM. Recheck BG in 30 minutes. May repeat juice/soda, gel, dextrose or glucagon once per episode. For persistent hypoglycemia, consider longer-acting treatment for the duration of the active insulin. 1 tube of Glutose-15 contains 15 grams of glucose (net weight of tube = 37.5 grams.), Routine Or dextrose 10% infusionJump to med 250 mL, at 1,000 mL/hr, Intravenous, EVERY 30 MIN PRN, Starting on Wed08/14/22 at 2345, Until Wed09/25/22 at 1327, For BG 50-70 mg/dL: Oral treatment preferred: If able to drink, give 120 mL Juice or Regular (not diet) soda OR If NPO, give 15 gram glucose 40% oral gel massaged into buccal mucosa OR if unconscious or uncooperative, give 25 gram (250 mL) Dextrose 10% IV over 15 minutes per protocol OR, if no IV access, 1 mg Glucagon IM. For BG less than 50 mg/dL: Oral treatment preferred: If able to drink, give 240 mL Juice or Regular (not diet) soda OR If NPO, give 30 gram glucose 40% oral gel massaged in buccal mucosa OR if unconscious or uncooperative, give 25 gram (250 mL) Dextrose 10% IV over 15 minutes per protocol OR, if no IV access, 1 mg Glucagon IM. Recheck BG in 30 minutes. May repeat juice/soda, gel, dextrose or glucagon once per episode. For persistent hypoglycemia, consider longer-acting treatment for the duration of the active insulin. Or glucagon (Glucagen) (1 mg/mL) injection solution 1 mgJump to med 1 mg, Intramuscular, EVERY 30 MIN PRN, Starting on Wed08/14/22 at 2345, Until Wed09/25/22 at 1327, Low blood sugar, For BG 50-70 mg/dL: Oral treatment preferred: If able to drink, give 120 mL Juice or Regular (not diet) soda OR If NPO, give 15 gram glucose 40% oral gel massaged into buccal mucosa OR if unconscious or uncooperative, give 25 gram (250 mL) Dextrose 10% IV over 15 minutes per protocol OR, if no IV access, 1 mg Glucagon IM. For BG less than 50 mg/dL: Oral treatment preferred: If able to drink, give 240 mL Juice or Regular (not diet) soda OR If NPO, give 30 gram glucose 40% oral gel massaged in buccal mucosa OR if unconscious or uncooperative, give 25 gram (250 mL) Dextrose 10% IV over 15 minutes per protocol OR, if no IV access, 1 mg Glucagon IM. Recheck BG in 30 minutes. May repeat juice/soda, gel, dextrose or glucagon once per episode. For persistent hypoglycemia, consider longer-acting treatment for the duration of the active insulin., Routine documented in this encounter Additional Health Concerns Infection Onset Date Last Indicated Resolved Time Rule Out COVID-19 08/15/2022 08/15/2022 08/15/2022 11:30 AM EDT Rule Out COVID-19 08/15/2022 08/15/2022 08/15/2022 3:01 PM EDT Rule Out C. difficile 08/19/2022 08/19/20222022 8:33 PM EDT documented as of this encounter Care Teams Pit Operator Relationship Specialty Start Date End Date Chris Stanley APRN [address] [place] [address] PCP - General Family Medicine 02/03/19 documented as of this encounter
--- OUTSIDE RECORDS SUMMARY | 2024-02-05 12:52 | XMS_ITS | Encounter Summary ---
Author Organization [facility] [place] [address] Care Team Providers Care Framing Consultant Name Role Phone Ana Gillespie VAUGHN Primary Care Provider [phone] Reason for Visit * Auth/Cert (Routine) Specialty Diagnoses / Procedures Referred By Esperanza rodríguez Referred To Contact Diagnoses Shock CARDIOGENIC PULMONARY EDEMA Procedures ER Carlos Melton MD [facility] [place] [address] [facility] Referral ID Status Reason Start Date Expiration Date Visits Re quested Visits Authorized [id number] 1 1 Encounter Details Date Type Department Care Team (Late st Contact Info) Description 09/11/2022 4:10 PM EDT [place] [id number] Gt Urena MD [facility] [place] [address] Anesthesia Record Procedure Summary Procedure Name Responsible [...] expected post-operative course (including disposition.) Gt Lisa GUSSET STITCHER 1723 Recovery or ICU Handoff Sayra ent [...] side of arm), right; pressure injectable catheter ([id number]); 5 Fr; 0 cm; 33 cm; 33 [...] EDT Department of Anesthesiology Post-procedure Note Patient: eJnnifer Irving Procedure Summary Date: 09/11/22 Room / Location: [facility] INTERVENTIONAL RADIOLOGY 2 / [facility] Anesthesia Start: 1610 Anesthesia Stop: 1723 Procedure: PERCUTANEOUS GASTROSTOMY Diagnosis: (DYSPHAGIA) Surgeons: Aiden Flores MD Responsible Provider: Gt Urena MD Anesthesia Type: general ASA Status: 3 All Anesthesia Providers: Anesthesiologist: Gt Urena MD GUSSET STITCHER: Jennifer Salomon CRNA; Gt Lisa CRNA Vitals Value Taken Time BP 117/55 09/11/22 1730 Temp 37 ??C (98.6 ??F) 09/11/22 1725 Pulse 73 09/11/22 1741 Resp 14 09/11/22 1741 SpO2 93 % 09/11/22 1741 Pain Level 0 09/11/22 1730 Vitals shown include unvalidated device data. Patient Location: PACU/[facility] Level of Consciousness: Awake and [...] BX performed by David Dejesus MD at [facility] ENDOSCOPY ??? PRO COLONOSCOPY, DIAGNOSTIC N/A 03/01/2020 COLONOSCOPY, DIAGNOSTIC performed by David Dejesus MD at [facility] ENDOSCOPY ??? PRO ENDOSCOPIC US EXAM, ESOPH N/A 03/31/2022 UPPER EUS- ENDOSCOPIC ULTRASOUND performed by David Deejsus MD at [facility] ENDOSCOPY ??? PRO UPPER GI ENDOSCOPY, BIOPSY N/A 04/03/2014 UPPER GASTROINTESTINAL ENDOSCOPY,WITH BIOPSY SINGLE OR MULTIPLE performed by David Dejesus MDat [facility] ENDOSCOPY ??? PRO UPPER GI ENDOSCOPY, BIOPSY N/A 03/20/2016 EGD WITH BIOPSY performed by David Dejesus MD at [facility] ENDOSCOPY ??? PRO UPPER GI ENDOSCOPY, BIOPSY N/A 11/22/2018 EGD WITH BIOPSY (WRVU 2.49) performed by David Dejesus MD at [facility] ENDOSCOPY ??? PRO UPPER GI ENDOSCOPY, BIOPSY N/A 03/01/2020 UPPER GASTROINTESTINAL ENDOSCOPY,WITH BIOPSY SINGLE OR MULTIPLE (WRVU 2.49) performed by David Dejesus MD at [facility] ENDOSCOPY ??? PRO UPPER GI ENDOSCOPY, BIOPSY N/A 09/23/2021 EGD WITH BIOPSY (WRVU 2.49) performed by David Dejesus MD at [facility] ENDOSCOPY ??? PRO UPPER GI ENDOSCOPY, BIOPSY N/A 03/31/2022 EGD WITH BIOPSY (WRVU 2.49) performed by David Dejesus MD at [facility] ENDOSCOPY ??? PRO UPPER GI ENDOSCOPY, BIOPSY N/A 07/03/2022 EGD WITH BIOPSY (WRVU 2.49) performed by David Dejesus MD at [facility] ENDOSCOPY ??? PRO UPPER GI ENDOSCOPY, DIAGNOSTIC N/A 04/03/2014 EGD, UPPER GI ENDOSCOPY performed by David Dejesus MD at [facility] ENDOSCOPY ??? PRO UPPER GI ENDOSCOPY, DIAGNOSTIC N/A 03/01/2020 EGD, UPPER GI ENDOSCOPY performed by David Dejesus MD at [facility] ENDOSCOPY ??? PRO UPPER GI ENDOSCOPY, DIAGNOSTIC N/A 09/09/2022 EGD, UPPER GI ENDOSCOPY (WRVU 2.09) performed by Ayo Russ MD at [facility] MAIN OR Social History Tobacco Use [...] risks discussed with patient. Plan discussed with GUSSET STITCHER and attending. Anesthesia Screening documented in this encounter Miscellaneous Notes * Addendum Note - Jennifer Salomon CRNA - 09/21/2022 4:11 PM EDT Addendum created 09/21/22 1611 by Jennifer Salomon CRNA Intraprocedure Meds edited documented in this encounter Plan of Treatment Upcoming Encounters Date Type Department Care Team (Late st Contact Info) Description 03/10/2024 4:00 PM EDT Office Visit Cardiology at [address] [phone] Milagros Hernandez MD [facility] [place] [address] Scheduled Procedures Name Priority Associated Diagnoses Date/Ti [...] EDT documented in this encounter Care Teams Framing Consultant Relationship Specialty Start Date End Date Ana Gillespie APRN [address] [place] [address] PCP - General Family Medicine 02/03/19 documented as of this encounter
--- OUTSIDE RECORDS SUMMARY | 2024-02-05 12:56 | XMS_ITS | Encounter Summary ---
Author Organization [facility] [place] [address] Care Team Providers Care Kiln Setter Name Role Phone Chris Stanley VAUGHN Primary Care Provider [phone] Reason for Visit * Auth/Cert (Routine) Specialty Diagnoses / Procedures Referred By Esperanza rodríguez Referred To Contact Diagnoses Shock CARDIOGENIC PULMONARY EDEMA Procedures ER Carlos Melton MD [facility] [place] [address] [facility] Referral ID Status Reason Start Date Expiration Date Visits Re quested Visits Authorized [id number] 1 1 Encounter Details Date Type Department Care Team (Late st Contact Info) Description 09/11/2022 3:30 PM EDT - 09/11/2022 4:50 [place] [address] Aiden Flores MD [facility] [place] [address] PERCUTANEOUS GASTROSTOMY Social History Tobacco Use Types Packs/Day Years [...] Sign Reading Time Taken Comments Blood Pressure 154/72 09/11/2022 12:07 PM EDT Pulse 84 09/11/2022 12:05 AM EDT Temperature 36.7 ??C (98.1 ??F) 09/11/2022 8:33 AM ED T Respiratory Rate 18 09/11/2022 12:07 PM EDT Oxygen Saturation 95% 09/11/2022 12:07 PM EDT Inhaled Oxygen Concentration - - Weight 64.5 kg (142 lb 1.6 oz) 09/09/2022 3:54 A M EDT Height 152.4 cm (5') [...] &??Farrell's esophagus??presenting in transfer from [facility], suspected to be in cardiogenic shock and [...] discharge. [facility] #[facility]ipolar Disorder #Hospital Associated Delirium ?? The [...] 4L NC. On arrival to [facility], the patient was given further doses of [...] (80 lasix) & dobutamine withconsequent transfer to [facility]. ?? On arrival, the patient was requiring requiring roughly NE 30, dobutamine 2.5, and epinephrine of 5. Hospital Course: Ishan Irving was admitted to the Cardiology Service on 08/14/2022 and transferred to [facility] on 08/30/2022. The following acute and chronic medical issues were identified during this phase of their hospitalization, and managed as summarized below by problem: #Type II NSTEMI #Mixed cardiogenic and distributive shock #Acute HFrEF 2/2 stress cardiomyopathy Following admission to the [facility], a [place]-Isabelle catheter was placed for monitoring of hemodynamic [...] depressed mental status, she was extubated to [facility] on 08/23, which she tolerated well. #Bipolar Disorder #Hospital Associated Delirium During her [facility] stay, Ishan remained only intermittently responsive, occasionally moving in response to pain but quite sedated. Neurology was consulted and a workup including CT Head, MRI, and EEG was performed without demonstrating abnormality. Once extubated she remained with some AMS, thought to be secondary to hospital-associated delirium. Patient transferred to Hospital Medicine team on 08/30 with stable cardiac condition but ongoing limitations in her responsiveness and demonstrating marked psychomotor slowing. Psychiatry was consulted and patient was started on bupropion for bipolar disorder associated depression which resulted in a dramatic improvement in psychomotor slowing [id number] hours. Her mental status improved significantly over her course and she was discharged fully oriented. She was continued on her home Depakote and Seroquel. #History of Drug-Induced Parkinsonism #Severe Oropharyngeal Dysphagia #Distal Esophageal Dysmotility #GERD complicated by Farrell's Esophagus and Esophagitis Ishan demonstrated severe dysphagia on an MBS obtained by SHIP RUNNER after extubation. While it was suspected initially [...] who have questions please contact the health pediatric acute care unit nurse that requested your imaging first. Abdomen 1 view (Generic) (Exam End: 08/15/2022 8:33 AM) Narrative EXAMINATION: XR ABDOMEN 1 VIEW (GENERIC) CLINICAL HISTORY: 62 yo F w/ shock, confirm NG tube placement TECHNIQUE: Single radiograph of the lower chest and upper abdomen for purposes of enteric tube verification and otherwise nondiagnostic. The lower abdomen is excluded from khvpe-wv-iymx. COMPARISON: Abdominal radiograph 08/15/2022 FINDINGS: * An [...] who have questions please contact the health pediatric acute care unit nurse that requested your imaging first. Electronically signed by: Liliane Adams MD, [facility] ([phone]), at 08/15/2022 9:05 AM XR Chest One View (Exam End: 08/15/2022 1:14 AM) Narrative EXAMINATION: XR CHEST ONE VIEW CLINICAL HISTORY: confirm [place] placement TECHNIQUE: 1 view of the chest [...] who have questions please contact the health pediatric acute care unit nurse that requested your imaging first. Abdomen 1 [...] who have questions please contact the health pediatric acute care unit nurse that requested your imaging first. Chest One [...] who have questions please contact the health pediatric acute care unit nurse that requested your imaging first. Electronically signed by: Alfonso Adams MD, [facility] ([phone]), at 08/16/2022 10:[address] Head wo [...] who have questions please contact the health pediatric acute care unit nurse that requested your imaging first. Electronically signed by: Moustapha Correa MD, [facility] ([phone]), at 08/16/2022 11:19 PM XR Abdomen 1 [...] who have questions please contact the health pediatric acute care unit nurse that requested your imaging first. Head wo [...] who have questions please contact the health pediatric acute care unit nurse that requested your imaging first. Electronically signed by: Antonio Jordan MD, [facility] ([phone]), at 08/18/2022 3:18 PM XR Chest One View (Exam End: 08/19/2022 12:30 PM) Narrative EXAMINATION: XR CHEST ONE VIEW CLINICAL HISTORY: febrile, altered, leukocytosis TECHNIQUE: 1 view of the chest ; AP portable 20 degrees upright COMPARISON: Chest radiograph 08/16/2022 FINDINGS: ET tube tip measures 3.0 cm above consuelo. Enteric catheter descends below the diaphragm and below the apfka-cd-gyga. Interval removal of right IJ approach PA [...] who have questions please contact the health pediatric acute care unit nurse that requested your imaging first. Electronically signed by: Alan De Guzman MD, [facility] ([phone]), at 08/19/2022 3:14 PM MRI Brain wo [...] who have questions please contact the health pediatric acute care unit nurse that requested your imaging first. Electronically signed by: Jagdeep Lee MD, [facility] ([phone]), at 08/20/2022 3:34 AM XR Chest for Verifying Vascular Access PICC [...] who have questions please contact the health pediatric acute care unit nurse that requested your imaging first. Electronically signed by: Alan De Guzman MD, [facility] ([phone]), at 08/19/2022 4:[address] Hip w [...] who have questions please contact the health pediatric acute care unit nurse that requested your imaging first. Electronically signed by: Aicha Chowdhury MD, [facility] ([phone]), at 08/21/2022 9:[address] Chest w [...] the diaphragm with tip not included the cvzxb-uc-ovtl. There is some wall thickening of the [...] the duodenum, not fully included in the ygqtv-vw-qfkd. Skeletal structures: No acute osseous findings. No [...] who have questions please contact the health pediatric acute care unit nurse that requested your imaging first. Electronically signed by: Jagdeep Lee MD, [facility] ([phone]), at 08/21/2022 6:56 AM IR Ultrasound in IR (Exam End: 08/21/2022 3:09 [...] who have questions please contact the health pediatric acute care unit nurse that requested your imaging first. Electronically signed by: iVktor Cervantes MD, [facility] ([phone]), at 08/22/2022 12:43 PM XR Pelvis (Generic) [...] who have questions please contact the health pediatric acute care unit nurse that requested your imaging first. Electronically signed by: Richard Billings MD, [facility] ([phone]), at 08/22/2022 10:[address] Angiogram Coronary [...] who have questions please contact the health pediatric acute care unit nurse that requested your imaging first. Electronically signed by: Arlette Mays MD, [facility] ([phone]), at 08/27/2022 11:[address] Chest wo [...] who have questions please contact the health pediatric acute care unit nurse that requested your imaging first. Electronically signed by: MINH QUIROGA MD, [facility] ([phone]), at 08/27/2022 10:48 AM XR Fluoro Barium [...] There is delayed elevation of the larynx mcfp between the vallecula and piriform sinuses. It [...] who have questions please contact the health pediatric acute care unit nurse that requested your imaging first. Electronically signed by: Aron Billings MD, [facility] ([phone]), at 08/31/2022 12:02 PM XR Fluoro Barium [...] who have questions please contact the health pediatric acute care unit nurse that requested your imaging first. Electronically signed by: Alfonso Adams MD, [facility] ([phone]), at 09/04/2022 10:57 AM XR Abdomen 1 [...] who have questions please contact the health pediatric acute care unit nurse that requested your imaging first. Electronically signed by: Jagdeep Lee MD, [facility] ([phone]), at 09/04/2022 10:35 PM XR Chest One View (Exam End: 09/04/2022 9:47 [...] who have questions please contact the health pediatric acute care unit nurse that requested your imaging first. Electronically signed by: Jagdeep Lee MD, [facility] ([phone]), at 09/04/2022 10:35 PM XR Chest One View (Exam End: 09/05/2022 9:24 [...] now extending below the diaphragm and included fmzfr-qm-wauh. Similar appearance of mild elevation of the right hemidiaphragm with streaky right basilar opacities and some mild patchy opacities at the left lung base. No new focal airspace opacity. No appreciable pleural fluid collection. No pneumothorax. Cardiomediastinal silhouette is unchanged. No evidence of pulmonary edema. No acute osseous abnormality. Impression 1. Reposition enteric tube now extending below the diaphragm and included nnhba-tj-ifdc. 2. Similar appearance of elevated right hemidiaphragm and linear/patchy bibasilar opacities which may represent atelectasis or possibly aspiration. Thank you for letting us participate in the care of this patient. If you are a health care provider and have any questions regarding this report, please contact the number below. For patients who have questions please contact the health pediatric acute care unit nurse that requested your imaging first. Electronically signed by: AUDI PERDOMO MD, [facility] ([phone]), at 09/05/2022 3:43 PM XR Abdomen 1 [...] who have questions please contact the health pediatric acute care unit nurse that requested your imaging first. Electronically signed by: Camille Garcia MD, [facility] ([phone]), at 09/10/2022 1:16 AM IR G-Tube Placement [...] barrier technique was used throughout. ??A 4 Eritrean glide catheter??was placed??as a??nasoenteric tube??under fluoroscopy with [...] who have questions please contact the health pediatric acute care unit nurse that requested your imaging first. Film Library- [...] Ultra-Fine Mini Pen Needle 1 Device by Misc.(Non-Drug; Combo Route) route 3 times daily as needed. 1 Device Quantity: 100 each Refills: 11 lancets 33 gauge Misc Commonly known as: One Touch Delica 1 [...] Center 11/12/2022 11:30 AM Dixie Tadeo MD [facility] ENDO [facility] Date and Time Provider and Specialty Location Need to be scheduled Chris Stanley APRN , PCP [address] / [facility] [address] Your Inpatient Doctor(s) at [facility]: Jose Mcleod MD Your Primary Care Provider: Chris Stanley APRN [address] / [facility] [address] For questions regarding this document or issues relating to this hospitalization on the Medical Service, please contact your inpatient physician through the [facility] Baker Helper . Issues afterhours and on weekends will [...] or its attachments. INTERVENTIONAL RADIOLOGY PHONE NUMBERS [phone] ___X___ If you have a NON Low profile feeding tube, call with any questions or concerns. During regular office hours call: [phone]. If it is after regular office hours, weekends or holidays, please call [phone] and ask to speak to the Section Leader Screen Printing auto transmission specialist for Interventional Radiology. Revised 02/23/19 YOU ARE [...] avoid another low BG in the future. [facility] INTERVENTIONAL RADIOLOGY NURSES NOTE FOR GASTROPEXY SUTURE [...] is during regular office hours, please call [phone]. If it is after regular office hours, or on weekends or holidays, please call [phone] and ask to speak to the Section Leader Screen Printing auto transmission specialist for Interventional Radiology. Revised 02/23/19 Future Appointments and Orders Future Appointments and Orders Future Appointments Provider Department Dept Phone 11/12/2022 11:30 AM Dixie Tadeo MD Endocrinology at [facility] Arrive at: [facility] [address]A [phone] Future Orders Complete By Expires XR Pelvis and Hip 2 Views Left [[id number] Custom] 09/09/2022 (Approximate) 03/11/2023 Process Instructions: Scheduling Instructions: Comments: Questions: Where will study be performed?: [facility] Radiology Portable exam?: Reason for exam and clinical history: s/p perc fixation L FNF @[facility], being referred to arthroplasty team for consideration of KYUNG Clinical information / fam questions for radiologist: Stat read required?: Date of injury if applicable: Requested Time: Referral for Home Tube feeds [[id number] CPT(R)] As directed Process Instructions: Scheduling Instructions: Comments: Ishan Irving [address] [place] [phone] (home) - Telephone Information: Medicaid Yes/No Medicaid Number: [id number] Narrative: Patient has a feeding tube and requires tube feedings and supplies necessary to maintainnutritional support . VENDOR: [employer] Supporting Diagnosis: esophageal stricture Length of Need: [...] admission to Home Health. [address] [facility] [address] Date of : 1960 Inpatient DOCUMENTATION FOR VNA SERVICES (INCLUDING THOSE PATIENTS WITH MEDICARE COVERAGE REQUIRING HOME VNA SERVICES AND/OR HOSPICE SERVICES) PATIENT'S LOCATION: Ishan Irving [address] [facility] [address] (home) Cell: Telephone Information: Internal Carver's Name: Lee Gasca In discussion with the attending physician, it is certified that this patient is under their care and that they, or a Nurse Practitioner,Clinical Nurse specialist or Physician Fire Alarm Operator who is working directly with them, had [...] for managing ADL's. HOME HEALTH CARE AGENCY: [facility] [address] [address] Start of care: 24-48 hours post DC [...] Chris Stanley APRN [address] / [facility] [address] All VNA agencies which cover the area of patient's residence have been reviewed, either verbally terrence writing, and patient/family have chosen the home health care agency noted Questions: Disciplines Requested: Physical Therapy Occupational Therapy Nursing Provider Contact Information: Chris Stanley APRN [address] [facility] [address] Discharge References/Attachments: Discharge References/Attachments None documented in [...] or its attachments. INTERVENTIONAL RADIOLOGY PHONE NUMBERS [phone] ___X___ If you have a NON Low profile feeding tube, call with any questions or concerns. During regular office hours call: [phone]. If it is after regular office hours, weekends or holidays, please call [phone] and ask to speak to the Section Leader Screen Printing auto transmission specialist for Interventional Radiology. Revised 02/23/19 YOU ARE [...] avoid another low BG in the future. [facility] INTERVENTIONAL RADIOLOGY NURSES NOTE FOR GASTROPEXY SUTURE [...] is during regular office hours, please call [phone]. If it is after regular office hours, or on weekends or holidays, please call [phone] and ask to speak to the Section Leader Screen Printing auto transmission specialist for Interventional Radiology. Revised 02/23/19 * Patient [...] Center 11/12/2022 11:30 AM Dixie Tadeo MD [facility] ENDO [facility] Date and Time Provider and Specialty Location Need to be scheduled Chris Stanley APRN , PCP [address] / [facility] [address] Your Inpatient Doctor(s) at [facility]: Jose Mcleod MD Your Primary Care Provider: Chris Stanley APRN [address] / [facility] [address] For questions regarding this document or issues relating to this hospitalization on the Medical Service, please contact your inpatient physician through the [facility] Baker [employer]per . Issues afterhours and on weekends will [...] meter kit. 1 each 0 12/14/2014 Insulin [place], Disposable, (BD INSULIN PEN NEEDLE UF MINI) 31 x 07/23 NeedleIndications:Di abetes mellitus type 2, uncontrolled 1 Device by [facility].(Non-Drug; Combo Route) route 3 times daily as [...] of this encounter Progress Notes * Leann Harding, RN - 09/25/2022 11:21 AM EDT Reviewed all discharge instructions/paperwork with patient and of patient. All belongings taken home PEG tube intact and tube feeds stopped and water flush 50 mls and capped. Patient assistedto dress and transferred to / with push to discharge lounge. Assisted to [...] spent >30 minutes (Day of Discharge Code 76977) involved in the final examination of the [...] &??Farrell's esophagus??presenting in transfer from [facility], suspected to be in cardiogenic shock and [...] BG in the future. Elsie Erickson APRN [facility] Endocrinology Diabetes Management Pager [phone] minutes of 50 minutes was spent evaluating diabetes and treatment plan, reviewing all glucose and insulin data as well as relevant laboratory results, in discharge planning and coordination of care on the inpatient unit including nursing and primary team. * Nubia Greenwood, RN - 09/25/2022 4:11 AM EDT OUTCOME [...] ADLs]: Hands on Surveillance [continuous indirect monitoring]: [facility] Bed alarm Room near nurses' station Rounding Patient-specific fall prevention interventions for sensory deficits provided, if applicable: [X] No * Jose Mcleod MD - 09/24/2022 4:21 PM EDT Hospital Medicine Attending Daily Progress Note Admit Date: 08/14/2022 Hospital Day 41 days Active Hospital Problems Diagnosis ??? Bipolar disorder ??? T2DM (type 2 diabetes mellitus) Resolved Hospital Problems Diagnosis Date Resolved ??? Shock 08/22/2022 [facility] Active Non-Hospital Problems Diagnosis ??? Neuroleptic-induced parkinsonism [...] fellows interpretation Confirmed by fellow Niurka Rose ([id number]) on 09/07/2022 8:45:34 AM Confirmed by MD ALEJANDAR, RICHARD ([id number]) on 09/07/2022 1:55:43 PM QTCCALC [...] anemia,??GERD??c/b??esophagitis &??Farrell's esophagus, who was admitted to [facility] on 08/14/2022??for mixed shock and stress cardiomyopathy [...] with family 09/25 Team Pager( Coverage 30/11): #[phone] PCP: Chris Stanley, VAUGHN [phone] Attestation: Attending Attestation and Certification I have examined the patient myself and personally reviewed all studies. In addition, I certify thatI am a D-H credentialed attending provider with admitting privileges and that the patient meets or has met medical necessity to require an inpatient IPI level of care meeting a minimum of two midnights or is on the [facility] inpatient only procedure list (status C) due to: the patient has met Inpatient IPI criteria and is awaiting rehabilitation or fci facility placement with active referrals in process [...] importance to continue to progress athome. Pager: [phone] DANIELA Montes 09/24/2022 Occupational Therapy Rehabilitation Department * Margret Moreno RN - 09/24/2022 1:55 PM EDT Infusion Resource Center Follow up Note: Referral to : [facility] Confirmed with Wallace HERRERA that patient will be seen day after discharge Hospital teaching occurred at 10AM 09-24-22 Delivery of IV supplies will occur 09-24-22 @ 5pm . To be delivered to patients room in the hospital. Infusion Resource Center [phone] * Alicia Gillis - 09/24/2022 10:38 AM [...] CPG GOAL OUTCOME EVALUATION: * Elsie Erickson [place], RADIO INTERFERENCE TROUBLE SHOOTER - 09/23/2022 3:41 PM EDT Follow Up [...] 0638 09/21/22200409/21/22 1628 09/21/22 1127 09/21/22 0700 POCGLU [id number]* [...] &??Farrell's esophagus??presenting in transfer from [facility], suspected to be in cardiogenic shock and [...] 14 hrs Monitoring: Q4 Elsie Erickson APRN [facility] Endocrinology Diabetes Management Pager [phone] minutes of this 50 minute visit [...] fellows interpretation Confirmed by fellow Niurka Rose ([id number]) on 09/07/2022 8:45:34 AM Confirmed by MD [...] anemia,??GERD??c/b??esophagitis &??Farrell's esophagus, who was admitted to [facility] on 08/14/2022??for mixed shock and stress cardiomyopathy [...] with family 09/25 Team Pager( Coverage 30/11): #[phone] PCP: Chris Stanley APRN [phone] Attestation: Attending Attestation and Certification I have [...] IPI criteria and is awaiting rehabilitation or fci facility placement with active referrals in process Jose Mcleod MD 09/23/2022 * Feroz Portillo, DATABASE DESIGNER - 09/23/2022 1:55 PM EDT Physical Therapy [...] &??Farrell's esophagus??presenting in transfer from [facility], suspected to be in cardiogenic shock and [...] attempting to sit. [facility] when medically ready. [...] Billing Code: TE-F x 2 FEROZ PORTILLO PTA Pager: [phone] Physical Therapy Inpatient Rehabilitation Department * Alicia Glez, DIVING COACH - 09/23/2022 10:14 AM EDT Occupational Therapy [...] &??Farrell's esophagus??presenting in transfer from [facility], suspected to be in cardiogenic shock and [...] times/wk Total Minutes, Occupational Therapy: 44 (x3 critical [facility] hospital [phone]) Pager: [phone] DANIELA Montes 09/23/2022 Occupational Therapy Rehabilitation Department * Aleshia Esparza RN - 09/22/2022 5:51 PM EDT OUTCOME [...] (09/22/22 1000) ??? tube feeding diet Stopped (09/17/22 2469) PRN: prochlorperazine, ondansetron, polyethylene glycoL, diclofenac, senna, [...] Vitals for the past 168 hrs: Weight 05/16/23 0642 63.2 kg (139 lb 6.4 oz) [...] Labs 09/22/22 1635 09/22/22 1124 09/22/22 0638 09/21/22 2005 09/21/22 1628 09/21/22 1127 09/21/22 0700 09/20/22 2325 [...] fellows interpretation Confirmed by fellow Niurka Rose ([id number]) on 09/07/2022 8:45:34 AM Confirmed by MD [...] anemia,??GERD??c/b??esophagitis &??Farrell's esophagus, who was admitted to [facility] on 08/14/2022??for mixed shock and stress cardiomyopathy [...] with family 09/25 Team Pager(MD Coverage 30/11): #[phone] PCP: Chris Stanley, VAUGHN [phone] Attestation: Attending Attestation and Certification I have examined the patient myself and personally reviewed all studies. In addition, I certify thatI am a D-H credentialed attending provider with admitting privileges and that the patient meets or has met medical necessity to require an inpatient IPI level of care meeting a minimum of two midnights or is on the [facility] inpatient only procedure list (status C) due to: the patient has met Inpatient IPI criteria and is awaiting rehabilitation or fci facility placement with active referrals in process Jose Mcleod MD 09/22/2022 * Jenn Staples PA - 09/22/2022 7:46 AM EDT ORTHOPAEDIC SURGERY INPATIENT PROGRESS NOTE Patient Name: Ishan Irving Age: 62 y.o. Surgery/Issue: concern for septic arthritis s/p ORIF of the L Hip Fx at [facility] Attending: David Lynne MD Date of surgery: 08/09/2022 SUBJECTIVE / INTERVAL HISTORY: Ms Irving is a 62 y.o. 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 Per primary team patient remains clinically stable. Ms Irving is being seen today by orthopedics for 1 month surveillance check of possible septic arthritis s/p ORIF of Right hip performed by Dr. Lynne at [facility] on 08/09/2022. Today Patient reports thatshe is doing well and is going home on Wednesday. Per primary team PT/OT are recommending Rehab but family may be able to provide / care. Primary team states they will continue [...] up with Orthopedic surgeon at [facility] for continued surveillance of fracture healing. No further follow up with Orthopedics at [facility] is necessary. Orthopedics will sign off at this time. Please page [phone] with any questions or concerns that may arise. - Activity: WBAT LLE - DVT prophylaxis: Per primary - Antibiotics: Per primary - Diet: Per primary ROSLYN Potter-Socorro 09/24/2022 Future Appointments Date Time Provider Department Center 09/25/2022 9:00 AM [facility] IR RECOVERY MH IR [facility] Rad 11/12/2022 11:30 AM Dixie Tadeo MD [facility] * Xochitl Brooks RN - 09/22/2022 5:03 AM EDT OUTCOME EVALUATION NOTE: OUTCOME SUMMARY: Pt A&O X4. VS as charted on RA. Meds given per JUL, crushed through the PEG tube. Tube feed Nutren 1.5 cyclic 9160-9693. Pt c/o of tenderness in her L [...] Problems Diagnosis Date Resolved ??? Shock 08/22/2022 PM Active Non-Hospital Problems Diagnosis ??? Neuroleptic-induced parkinsonism [...] 09/21/22 0619 ??? tube feeding diet Stopped (09/17/229) PRN: prochlorperazine, ondansetron, polyethylene glycoL, diclofenac, senna, [...] 1609 09/20/22 1106 09/20/22 0539 09/19/22 2253 09/19/221 09/19/221956 POCGLU 221* 211* 166 291* 221* [...] fellows interpretation Confirmed by fellow Niurka Rose ([id number]) on 09/07/2022 8:45:34 AM Confirmed by MD [...] anemia,??GERD??c/b??esophagitis &??Farrell's esophagus, who was admitted to [facility] on 08/14/2022??for mixed shock and stress cardiomyopathy [...] with family 09/25 Team Pager(MD Coverage 30/11): #[phone] PCP: Chris Stanley, VAUGHN [phone] Attestation: Attending Attestation and Certification Please see [...] of two midnights or is on the [facility] inpatient only procedure list (status C) due to: the patient has met Inpatient IPI criteria and is awaiting rehabilitation or fci facility placement with active referrals in process Jose Mcleod MD 09/21/2022 * Feroz Portillo, DATABASE DESIGNER - 09/21/2022 1:50 PM EDT Physical Therapy [...] &??Farrell's esophagus??presenting in transfer from [facility], suspected to be in cardiogenic shock and [...] rest in when ambulating and will have 24/7 assist available on Monday 09/25. Will follow up with pt one more time to practice stairs and household ambulation distances, but pt will be safe to d/c home with 24/7 family assist and home PT/OT/RN services. Pt will benefit from ongoing therapeutic interventions to achieve therapy goals. Discharge Recommendations: Based on the current findings, Anticipated Discharge Disposition (PT): home with home health, home with supervision (/7 assist) when medically ready for hospital discharge. [...] Billing Code: TE-F x 3 FEROZ PORTILLO DATABASE DESIGNER Pager: [phone] Physical Therapy Inpatient Rehabilitation Department * Wilda Blankenship, RD - 09/21/2022 12:11 PM EDT Nutrition Progress Note Ishan Irving??is a 62 y.o.??female??with h/o bipolar, DM, EtOH, esophagitis, who presented to [facility] 3 days ago after being found unresponsive at home.?Patient found to have likely pneumonia+/- aspiration, newly reduced EF. Reason for Assessment: Tube Feeding, Follow-up Nutrition Recommendations: Suggest Cyclic Nutren 1.5 at 72 ml per hour plus 2 scoops of protein powder 14 hrs from 8841-5962 -pended At goal, this will provide: Nutren [...] p.o. Intake, etc. ?? Po diet per SHIP RUNNER (recs 09/04 NPO s/p MBS) ?? Continue [...] balloon LUQ (left upper quadrant) feeding 09/11/22 165 -- 10 Peripheral IV Line - Single Lumen 09/21/22 0248 cephalic vein (lateral side of arm), right 248 -- less than 1 External Catheter 09/13/22 [...] encounter: 67.7 kg (149 lb 3.2 oz). [place] Body Weight (IBW) (kg): 45.45 Usual Body [...] while inpatient THANKS Wilda Blankenship RD Pager #:[phone] * Siobhan Harper LPN - 09/20/2022 11:27 [...] anemia,??GERD??c/b??esophagitis &??Farrell's esophagus, who was admitted to [facility] on 08/14/2022 (now on Hospital Day #23)??for [...] Infusions: ??? tube feeding diet 1,008 mL (09/20/22601) ??? tube feeding diet Stopped (09/17/222218) PRN [...] barrier technique was used throughout. ??A 4 Eritrean glide catheter??was placed??as a??nasoenteric tube??under fluoroscopy with [...] now extending below the diaphragm and included [id number]. 2. Similarappearance of elevated right hemidiaphragm and [...] anemia,??GERD??c/b??esophagitis &??Farrell's esophagus, who was admitted to [facility] on 08/14/2022 (now on Hospital Day #23)??for [...] IPI criteria and is awaiting rehabilitation or fci facility placement withactive referrals in process Team Pager (MD Coverage 30/11): #[phone] PCP: VAUGHN Whyte MD 09/20/22 * Shirley Thibodeaux RN - 09/20/2022 5:21 AM EDT OUTCOME EVALUATION NOTE: OUTCOME SUMMARY: Pt is A/OX4, VSS on RA. Pt denies SOB,NVD, chest pain. 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 Pt C/O of acid reflux, [...] anemia,??GERD??c/b??esophagitis &??Farrell's esophagus, who was admitted to [facility] on 08/14/2022 (now on Hospital Day #23)??for [...] ??? insulin lispro 1-10 Units Subcutaneous Q4H JARED ??? lidocaine 3 patch Transdermal Q24H ??? enoxaparin 40 mg Subcutaneous Daily ??? chlorhexidine 15 mL Oral BID ??? sodium chloride 0.9 % (flush) 5 mL Intravenous BID Continuous Infusions: ??? tube feeding diet 1,008 mL (09/19/22 9826) ??? tube feeding diet Stopped (09/17/22 9971) PRN Meds: ondansetron, polyethylene glycoL, prochlorperazine, ondansetron, [...] barrier technique was used throughout. ??A 4 Eritrean glide catheter??was placed??as a??nasoenteric tube??under fluoroscopy with [...] ?? Attending: IDr. Hart performed this procedure. XR Hip 2-3 Views Left (09/15/2022) 1. Healed left femoral neck fracture with short femoral neck 2. Maintained post reduction alignmentand no hardware complications. XR Hip 2-3 Views Left (08/22/2022) No radiographic evidence of infection. XR Chest One View (09/05/2022) 1. Reposition enteric tube now extending below the diaphragm and included [id number]. 2. Similarappearance of elevated right hemidiaphragm and [...] anemia,??GERD??c/b??esophagitis &??Farrell's esophagus, who was admitted to [facility] on 08/14/2022 (now on Hospital Day #23)??for [...] minimumof two midnights or is on the [facility] inpatient only procedure list (status C) due to: the patient has met Inpatient IPI criteria and is awaiting rehabilitation or fci facility placement withactive referrals in process Team Pager ( Coverage 30/11): #[phone] PCP: VAUGHN Whyte MD 09/19/22 * Shirley Thibodeaux RN - 09/19/2022 4:47 AM EDT OUTCOME EVALUATION NOTE: OUTCOME SUMMARY: Pt is A/OX4, VSS on RA. Pt denies SOB,NVD, chest pain. 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 Pt C/O of nausea, PRN [...] anemia,??GERD??c/b??esophagitis &??Farrell's esophagus, who was admitted to [facility] on 08/14/2022 (now on Hospital Day #23) [...] Hunt MD Attending, Hospital Medicine Service Pager #[phone] 09/18/2022 24 Hour Events: None Subjective: Doing [...] 168 hours. No results for input(s): PHART, BLN5CVE, PO2ART, IVA6ZGB in the last 168 hours. Micro: No [...] ??? insulin lispro 1-10 Units Subcutaneous Q4H JARED ??? lidocaine 3 patch Transdermal Q24H ??? [...] minimumof two midnights or is on the [facility] inpatient only procedure list (status C) due to: the patient has met Inpatient IPI criteria and is awaiting rehabilitation or fci facility placement withactive referrals in process Alan [...] &??Farrell's esophagus??presenting in transfer from [facility], suspected to be in cardiogenic shock and foundto be in mixed shock with concern for stress cardiomyopathy.??She is s/p ORIF left femoral neck frac mae. ?? Precautions/Special Considerations: aspiration, skin breakdown, falls, [...] times/wk Total Minutes, Occupational Therapy: 48 (x3 critical access hospital 1045-11:[phone]) Pager: [phone] DANIELA Montes 09/18/2022 Occupational Therapy Rehabilitation Department * Shirley Thibodeaux RN - 09/18/2022 3:01 AM EDT OUTCOME EVALUATION NOTE: OUTCOME SUMMARY: Pt is A/OX4, VSS on RA. Pt denies SOB,NVD, chest pain. 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 Pt C/O of nausea, PRN [...] anemia,??GERD??c/b??esophagitis &??Farrell's esophagus, who was admitted to [facility] on 08/14/2022 (now on Hospital Day #23) [...] Hunt MD Attending, Hospital Medicine Service Pager #[phone] 09/17/2022 24 Hour Events: None Subjective: Doing [...] for the following: Labs: Recent Labs 09/16/2230709/15/2229909/14/22 0333 WBC 6.7 5.9 5.5 HGB 10.7* 10.2* 10.1* PLATELET 242 252 246 Recent Labs 09/16/2230709/15/2229909/14/22 0333 NA 140 140 140 K 4.0 4.0 4.1 CL 103 102 102 CO2 29 27 28 BUN 15 11 10 CREATININE 0.47* 0.44* 0.45* Recent Labs 09/16/2230709/15/22 03009/14/22 0333 CALCIUM 9.4 9.2 9.1 MAGNESIUM 0.80 0.77 0.74 PHOS 3.0 2.6 2.9 No results for input(s): AST, ALT, ALKPHOS, BILITOT, BILIDIR in the last 168 hours. No results for input(s): TROPONINT, CK in the last 168 hours. No results for input(s): PHART, MAT0JEZ, PO2ART, FGR9FUF in the last 168 hours. Micro: No [...] ??? insulin lispro 1-10 Units Subcutaneous Q4H JARED ??? lidocaine 3 patch Transdermal Q24H ??? [...] minimumof two midnights or is on the [facility] inpatient only procedure list (status C) due to: the patient has met Inpatient IPI criteria and is awaiting rehabilitation or fci facility placement withactive referrals in process Alan Hunt MD * Nancy Ernst, HUGH - 09/17/2022 12:38 PM EDT Nutrition Progress Note Ishan Irving??is a 62 y.o.??female??with h/o bipolar, DM, EtOH, esophagitis, who presented to [facility] 3 days ago after being found unresponsive at home.?Patient found to have likely pneumonia+/- aspiration, newly reduced EF. Reason for Assessment: Tube Feeding, Follow-up Nutrition Recommendations: Suggest Cyclic Nutren 1.5 at 72 ml per hour plus 2 scoops of protein powder 14 hrs from 4737-0640 -pended At goal, this will provide: Nutren 1.5 Total Volume Per Day: 1012 mL Calories per Day: 1518 Protein per Day: 69 g Free Water mL per Day: 773 % RDI: 101 % Monitor hydration status on above TFs as they are concentrated. Pt may need additional fluids depending on IVFs, med flushes, p.o. Intake, etc. ?? Po diet per SHIP RUNNER (recs 09/04 NPO s/p MBS) ?? Continue [...] Placement time Site Days Enterostomy Tube 09/11/22 165 gastrostomy tube with balloon LUQ (left upper quadrant) feeding 09/11/22 1652 -- 6 External Catheter 09/13/22 2344 09/13/222343 -- 4 Physical Findings Gastrointestinal: feeding tube [...] of this encounter: 64.4 kg (142 lb). [place] Body Weight (IBW) (kg): 45.45 Usual Body [...] Malnutrition Diagnosis: Not enough data to assess (Virgilio et al, JPEN J Parenteral Enteral Nutr. 2011; 36(3): 273-83) Nutrition to continue to follow up while inpatient Nancy Enrst RD Pager #:[phone] * Shirley Thibodeaux RN - 09/17/2022 3:42 AM EDT OUTCOME EVALUATION NOTE: OUTCOME SUMMARY: Pt is A/OX4, VSS on RA. Pt denies SOB,NVD, chest pain. 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 Assessment as documented (see flow sheet). BG monitored and insulin coverage per MAR orders Pt is resting between care. Will [...] CARE PLAN GOAL OUTCOME EVALUATION: * Feroz Portillo PTA - 09/16/2022 2:05 PM EDT Physical Therapy [...] &??Farrell's esophagus??presenting in transfer from [facility], suspected to be in cardiogenic shock and [...] the current findings, Anticipated Discharge Disposition (PT): fci facility when medically ready for hospital discharge. [...] Billing Code: TE-F x 3 FEROZ PORTILLO DATABASE DESIGNER Pager: [phone] Physical Therapy Inpatient Rehabilitation Department * Alan [...] anemia,??GERD??c/b??esophagitis &??Farrell's esophagus, who was admitted to [facility] on 08/14/2022 (now on Hospital Day #23) [...] Hunt MD Attending, Hospital Medicine Service Pager #[phone] 09/16/2022 24 Hour Events: None Subjective: Doing [...] for the following: Labs: Recent Labs 09/16/22 03009/15/22 03009/14/22 033 WBC 6.7 5.9 5.5 HGB 10.7* 10.2* 10.1* PLATELET 242 252 246 Recent Labs 09/16/22 03009/15/22 0300 09/14/22 0333 NA 140 140 140 [...] 168 hours. No results for input(s): PHART, ERV9GUL, PO2ART, DQG6CXB in the last 168 hours. Micro: No [...] ??? insulin lispro 1-10 Units Subcutaneous Q4H JARED ??? lidocaine 3 patch Transdermal Q24H ??? [...] minimumof two midnights or is on the [facility] inpatient only procedure list (status C) due to: the patient has met Inpatient IPI criteria and is awaiting rehabilitation or fci facility placement withactive referrals in process Alan [...] &??Farrell's esophagus??presenting in transfer from [facility], suspected to be in cardiogenic shock and [...] Stable on RA during seated task Pain: 12/17 Education: Pt/family/caregiver education ongoing regarding: Role of [...] 2-3 times/wk Total Minutes, Occupational Therapy: 24 (h0 critical access hospital [phone]) Pager: [phone] DANIELA Montes 09/16/2022 Occupational Therapy Rehabilitation Department * Jane Howe - 09/16/2022 9:54 AM EDTSumizzy: Clinical Notes Submitted to [place] LTC Medicaid Program for Review 09/16/22 0954 [employer] Medicaid Date Clinical Application Filed 09/16/22 State Application Filed in [place] [facility] [place] [facility] Program [facility] Materials Engineer sent Ishan's most recent MDs, PT/OT/SHIP RUNNER, RNCM and nursing notes. Along with Ishan's [...] &??Farrell's esophagus??presenting in transfer from [facility], suspected to be in cardiogenic shock and [...] stable overnight blood sugars Elsie Erickson APRN [facility] Endocrinology Diabetes Management Pager [phone] * Briana Bryant, SHIP RUNNER - 09/15/2022 8:38 AM EDT Speech Therapy Note Patient Profile: Ishan Irving is a 62 year old female with a medical history notable for??recent L femoral neck fracture,??bipolar disorder, resolving medication-induced Parkinsonism, insulin-dependent diabetes mellitus,??hx of alcohol use disorder (reported to be in remission for 1.5 years) c/b chronic pancreatitis, iron deficiency anemia,??GERD??c/b??esophagitis &??Farrell's esophagus??presenting in transfer from [facility]??on 08/14/2022, suspected to be in cardiogenic shock and found to be in mixed shock with concern for stress cardiomyopathy.??SHIP RUNNER following for swallow, cognitive tx. MBS completed [...] Pt was seen today for a follow-up SHIP RUNNER visit. Oral and pharyngeal swallow function appear [...] after Excellent oral care Plan: Therapy Frequency (SHIP RUNNER Eval): Monitor while hospitalized Pt./family are in agreement with treatment plan. Total Minutes (Speech Language Pathology): 10 Briana Bryant MA, [facility]-SHIP RUNNER Pager: [phone] Speech-Language Pathology Inpatient Rehabilitation Medicine * Chau Keith MD - 09/15/2022 6:34 AM EDT Images from the original note were not included. Inpatient Hospital Medicine Progress Note 09/15/2022 Patient Name: ISHAN IRVING Date of : 1960 Age: 62 y.o. Hospital Admit Date: 08/14/2022 Hospital Day: 32 Inpatient Attending: Balaji Mayer MD PCP: Chris Stanley APRN ([phone]) ID: Ishan Irving is a 62 y.o. 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.5 years) c/b chronic pancreatitis, iron deficiency anemia, ??GERD??c/b??esophagitis &??Farrell's esophagus, who was admitted to [facility] on 08/14/2022 (now on Hospital Day #32) [...] fellows interpretation Confirmed by fellow Niurka Rose ([id number]) on 09/07/2022 8:45:34 AM Confirmed by MD ALEJANDRA, RICHARD ([id number]) on 09/07/2022 1:55:43 PM QTCCALC [id number] 09/07/2022 0635 Microbiology: No results found for: URINECULTURE Lab Results Component Value Date/Time BLOODCX No growth at 5 days. 08/19/2022 1720 BLOODCX No growth at 5 days. 08/19/2022 1330 Microbiology Results (Last 30 days) Procedure Component Value Units Date/Time Lower Respiratory Culture Bronchial Alveolar Lavage [[id number]] Collected: 08/21/22 1650 Lab Status: Final result Specimen: Bronchial Alveolar Lavage Updated: 08/23/22 0741 Lower Respiratory Culture Rare mixed bacterial morphotypes suggestive of normal upper respiratory wiley Gram Stain -- Few Neutrophils seen No squamous epithelial cells seen No microorganisms seen. Fungus Culture & Calc Stain Bronchial Alveolar Lavage [[id number]] (Abnormal) Collected: 08/21/221649 Lab Status: Preliminary result Specimen: Bronchial Alveolar Lavage Updated: 08/24/22 1452 AFB culture Bronchial Alveolar Lavage [[id number]] Collected: 08/21/221649 Lab Status: Preliminary result Specimen: Bronchial Alveolar Lavage Updated: 08/24/22 2219 Acid Fast Bacilli Culture -- No Acid Fast Bacilli isolated to date If active tuberculosis is suspected, the patient should be on [employer] PRECAUTIONS. Call Infection Prevention for assistance if needed. Acid Fast Stain No Acid Fast Bacilli seen Fungus culture [[id number]] (Abnormal) Collected: 08/21/221649 Lab Status: Preliminary result Specimen: Bronchial Alveolar Lavage Updated: 08/24/22 145 Fungus Culture Rare Jacky albicans Calcofluor White Stain [[id number]] Collected: 08/21/221649 Lab Status: Final result Specimen: Bronchial Alveolar Lavage Updated: 08/21/222015 Calcofluor Stain Calcofluor White Preparation: Negative Lower Respiratory Culture Bronchial Alveolar Lavage [[id number]] Collected: 08/21/221644 Lab Status: Final result Specimen: Bronchial Alveolar Lavage Updated: 08/23/22 0741 Lower Respiratory Culture Rare mixed bacterial morphotypes suggestive of normal upper respiratory wiley Gram Stain -- Moderate Neutrophils seen No squamous epithelial cells seen No microorganisms seen. Fungus Culture & Calc Stain Bronchial Alveolar Lavage [[id number]] (Abnormal) Collected: 08/21/221644 Lab Status: Preliminary result Specimen: Bronchial Alveolar Lavage Updated: 08/24/22 1453 AFB culture Bronchial Alveolar Lavage [[id number]] Collected: 08/21/221644 Lab Status: Preliminary result Specimen: Bronchial Alveolar Lavage Updated: 08/24/22 2221 Acid Fast Bacilli Culture -- No Acid Fast Bacilli isolated to date If active tuberculosis is suspected, the patient should be on [employer] PRECAUTIONS. Call Infection Prevention for assistance if needed. Acid Fast Stain No Acid Fast Bacilli seen Fungus culture [[id number]] (Abnormal) Collected: 08/21/221644 Lab Status: Preliminary result Specimen: Bronchial Alveolar Lavage Updated: 08/24/22 145 Fungus Culture Rare Jacky albicans Calcofluor White Stain [[id number]] Collected: 08/21/221644 Lab Status: Final result Specimen: Bronchial Alveolar Lavage Updated: 08/21/222016 Calcofluor Stain Calcofluor White Preparation: Negative Blood culture [[id number]] Collected: 08/19/22 1720 Lab Status: Final result Specimen: Blood Updated: 08/24/22 2301 Blood Culture No growth at 5 days. Lower Respiratory Culture Sputum Induced [[id number]] Collected: 08/19/22 1451 Lab Status: Final result Specimen: Sputum Induced Updated: 08/21/22 0948 Lower Respiratory Culture Rare mixed bacterial morphotypes suggestive of normal upper respiratory wiley Gram Stain -- Many Neutrophils seen Few squamous epithelial cells seen No microorganisms seen. Blood culture [[id number]] Collected: 08/19/22 1330 Lab Status: Final result Specimen: Blood Updated: 08/24/22 1501 Blood Culture No growth at 5 days. Legionella Urinary Antigen [[id number]] Collected: 08/18/22 1013 Lab Status: Final result [...] who have questions please contact the health pediatric acute care unit nurse that requested your imaging first. Abdomen 1 [...] who have questions please contact the health pediatric acute care unit nurse that requested your imaging first. Electronically signed by: Liliane Adams MD, [facility] ([phone]), at 08/15/2022 9:05 AM XR Chest One [...] who have questions please contact the health pediatric acute care unit nurse that requested your imaging first. Abdomen 1 [...] who have questions please contact the health pediatric acute care unit nurse that requested your imaging first. Chest One [...] who have questions please contact the health pediatric acute care unit nurse that requested your imaging first. Electronically signed by: Alfonso Adams MD, [facility] ([phone]), at 08/16/2022 10:[address] Head wo [...] who have questions please contact the health pediatric acute care unit nurse that requested your imaging first. Electronically signed by: Moustapha Correa MD, [facility] ([phone]), at 08/16/2022 11:19 PM XR Abdomen 1 [...] who have questions please contact the health pediatric acute care unit nurse that requested your imaging first. Head wo Contrast (Generic) (Exam End: 08/18/2022 3:14 PM) Impression No acute intracranial process. Thank you for letting us participate in the care of this patient. If you are a health care provider and have any questions regarding this report, please contact the number below. For patients who have questions please contact the health pediatric acute care unit nurse that requested your imaging first. Electronically signed by: Antonio Jordan MD, [facility] ([phone]), at 08/18/2022 3:18 PM XR Chest One [...] who have questions please contact the health pediatric acute care unit nurse that requested your imaging first. Electronically signed by: Alan De Guzman MD, [facility] ([phone]), at 08/19/2022 3:14 PM MRI Brain wo Contrast (Exam End: 08/19/2022 10:15 PM) Impression No acute infarction, mass or mass effect. Thank you for letting us participate in the care of this patient. If you are a health care provider and have any questions regarding this report, please contact the number below. For patients who have questions please contact the health pediatric acute care unit nurse that requested your imaging first. Electronically signed by: Jagdeep Lee MD, [facility] ([phone]), at 08/20/2022 3:34 AM XR Chest for Verifying Vascular Access PICC [...] who have questions please contact the health pediatric acute care unit nurse that requested your imaging first. Electronically signed by: Alan De Guzman MD, [facility] ([phone]), at 08/19/2022 4:[address] Hip w [...] who have questions please contact the health pediatric acute care unit nurse that requested your imaging first. Electronically signed by: Aicha Chowdhury MD, [facility] ([phone]), at 08/21/2022 9:[address] Chest w [...] who have questions please contact the health pediatric acute care unit nurse that requested your imaging first. Electronically signed by: Jagdeep Lee MD, [facility] ([phone]), at 08/21/2022 6:56 AM XR Hip 2-3 Views Left (Exam End: 08/22/2022 12:19 AM) Impression No radiographic evidence of infection. Thank you for letting us participate in the care of this patient. If you are a health care provider and have any questions regarding this report, please contact the number below. For patients who have questions please contact the health pediatric acute care unit nurse that requested your imaging first. Electronically signed by: Viktor Cervantes MD, [facility] ([phone]), at 08/22/2022 12:43 PM XR Pelvis (Generic) (Exam End: 08/22/2022 12:19 AM) Impression No radiographic evidence of infection status post left hip ORIF. Thank you for letting us participate in the care of this patient. If you are a health care provider and have any questions regarding this report, please contact the number below. For patients who have questions please contact the health pediatric acute care unit nurse that requested your imaging first. Electronically signed by: Richard Billings MD, [facility] ([phone]), at 08/22/2022 10:[address] Angiogram Coronary [...] who have questions please contact the health pediatric acute care unit nurse that requested your imaging first. Electronically signed by: Arlette Mays MD, [facility] ([phone]), at 08/27/2022 11:[address] Chest wo Contrast (Generic) (Exam End: 08/27/2022 8:58 AM) Impression Stable findings of multifocal pneumonia. No interval abnormality. Thank you for letting us participate in the care of this patient. If you are a health care provider and have any questions regarding this report, please contact the number below. For patients who have questions please contact the health pediatric acute care unit nurse that requested your imaging first. Electronically signed by: MINH QUIROGA MD, [facility] ([phone]), at 08/27/2022 10:48 AM XR Fluoro Barium [...] who have questions please contact the health pediatric acute care unit nurse that requested your imaging first. Electronically signed by: Aron Billings MD, [facility] ([phone]), at 08/31/2022 12:02 PM XR Fluoro Barium [...] who have questions please contact the health pediatric acute care unit nurse that requested your imaging first. Electronically signed by: Alfonso Adams MD, [facility] ([phone]), at 09/04/2022 10:57 AM XR Abdomen 1 [...] who have questions please contact the health pediatric acute care unit nurse that requested your imaging first. Electronically signed by: Jagdeep Lee MD, [facility] ([phone]), at 09/04/2022 10:35 PM XR Chest One View (Exam End: 09/04/2022 9:47 [...] who have questions please contact the health pediatric acute care unit nurse that requested your imaging first. Electronically signed by: Jagdeep Lee MD, [facility] ([phone]), at 09/04/2022 10:35 PM XR Chest One View (Exam End: 09/05/2022 9:24 AM) Impression 1. Reposition enteric tube now extending below the diaphragm and included [id number]. 2. Similar appearance of elevated right hemidiaphragm and linear/patchy bibasilar opacities which may represent atelectasis or possibly aspiration. Thank you for letting us participate in the care of this patient. If you are a health care provider and have any questions regarding this report, please contact the number below. For patients who have questions please contact the health pediatric acute care unit nurse that requested your imaging first. Electronically signed by: AUDI PERDOMO MD, [facility] ([phone]), at 09/05/2022 3:43 PM XR Abdomen 1 [...] who have questions please contact the health pediatric acute care unit nurse that requested your imaging first. Electronically signed by: Camille Garcia MD, [facility] ([phone]), at 09/10/2022 1:16 AM Medications: Scheduled: ??? [...] ??? insulin lispro 1-10 Units Subcutaneous Q4H JARED ??? miconazole nitrate Topical (Top) BID ??? lidocaine 3 patch Transdermal Q24H ??? enoxaparin 40 mg Subcutaneous Daily ??? chlorhexidine 15 mL Oral BID ??? pantoprazole 40 mg Intravenous BID ??? sodium chloride 0.9 % (flush) 5 mL Intravenous BID Continuous: ??? tube feeding diet 1,260 mL (09/15/22628) PRN: acetaminophen, prochlorperazine, ondansetron, diclofenac, polyethylene glycoL, senna, bisacodyL, sodium chloride 0.9 % (flush), lidocaine, glucose 40% oral geL OR dextrose 10% OR glucagon ASSESSMENT and PLAN: Ishan Orlando Irving is a 62 y.o. 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.5 years) c/b chronic pancreatitis, iron deficiency anemia,??GE RD??c/b??esophagitis &??Farrell's esophagus, who was admitted to [facility] on 08/14/2022 (now on Hospital Day #23) [...] her insurance that lacks rehab coverage requiring fdc care medicaid. Her application has been submitted. [...] nightly - C/w valproate 300mg q6h - [facility] following, NPO at present - Psychiatry Consult, [...] Medicine PGY1 Medicine Team: Jose Juan, Pager #[phone] Date: 09/15/2022 Associated attestation - Balaji Fraga [...] of two midnights or is on the [facility] inpatient only procedure list (status C) due to: the patient has met Inpatient IPI criteria and is awaiting rehabilitation or fci facility placement with active referrals in process * Wilda Blankenship, RD - 09/14/2022 3:04 PM EDT Nutrition Progress Note Ishan Irving is a 62 y.o.??female??with h/o bipolar, DM, EtOH, esophagitis, who presented to [facility] 3 days ago after being found unresponsive at home.?Patient found to have likely pneumonia +/- aspiration, newly reduced EF. Reason for Assessment: Tube Feeding, Follow-up Nutrition Recommendations: Continue current Tube feeding Cyclic Peptamen AF at 90ml/hr for 14 hrs from 6212-8636 At goal, this will provide: Peptamen AF Total Volume Per Day: 1260 mL Scoops of Protein: 0 Calories per Day: 1512 Protein per Day: 96 g Free Water mL per Day: 1023 % RDI: 101 % Monitor hydration status on above TFs as they are concentrated. Pt may need additional fluids depending on IVFs, med flushes, p.o. Intake, etc. Po diet per [facility] (recs 09/04 NPO s/p MBS) Continue 50,000 [...] encounter: 67.2 kg (148 lb 1.6 oz). [place] Body Weight (IBW) (kg): 45.45 Usual Body [...] Not performed Malnutrition Diagnosis: Not identified (Andrea, TRAMAINEEN J Parenteral Enteral Nutr. 2011; 36(3): 273-83) Nutrition to continue to follow up while inpatient THANKS Wilda Blankenship RD Pager #:[phone] * Feroz Portillo, DATABASE DESIGNER - 09/14/2022 2:05 PM EDT Physical Therapy [...] &??Farrell's esophagus??presenting in transfer from [facility], suspected to be in cardiogenic shock and [...] the current findings, Anticipated Discharge Disposition (PT): fci facility when medically ready for hospital discharge. [...] TE-F x 3 FEROZ PORTILLO PTA Pager: [phone] Physical Therapy Inpatient Rehabilitation Department * Alicia Gillis - 09/14/2022 10:46 AM EDT Application submitted via [place] Medicaid portal 09/14/2022 Any further documentation to be given to state upon request. * Chau Keith MD - 09/14/2022 6:06 AM EDT Images from the original note were not included. Inpatient Hospital Medicine Progress Note 09/14/2022 Patient Name: ISHAN IRVING Date of : 1960 Age: 62 y.o. Hospital Admit Date: 08/14/2022 Hospital Day: 31 Inpatient Attending: Chong Chao MD PCP: Chris Stanley APRN ([phone]) ID: Ishan Irving is a 62 y.o. 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.5 years) c/b chronic pancreatitis, iron deficiency anemia, ??GERD??c/b??esophagitis &??Farrell's esophagus, who was admitted to [facility] on 08/14/2022 (now on Hospital Day #31) [...] dry, no rashes LABS: CBC: Recent Labs 09/14/223 09/13/22 0315 09/12/22 0325 09/11/22 0405 09/10/22 [...] fellows interpretation Confirmed by fellow Niurka Rose ([id number]) on 09/07/2022 8:45:34 AM Confirmed by MD [...] Date/Time Lower Respiratory Culture Bronchial Alveolar Lavage [[id number]] Collected: 08/21/221649 Lab Status: Final result Specimen: Bronchial Alveolar Lavage Updated: 08/23/22 0741 Lower Respiratory Culture Rare mixed bacterial morphotypes suggestive of normal upper respiratory wiley Gram Stain -- Few Neutrophils seen No squamous epithelial cells seen No microorganisms seen. Fungus Culture & Calc Stain Bronchial Alveolar Lavage [[id number]] (Abnormal) Collected: 08/21/221649 Lab Status: Preliminary result Specimen: Bronchial Alveolar Lavage Updated: 08/24/22 1452 AFB culture Bronchial Alveolar Lavage [[id number]] Collected: 08/21/221649 Lab Status: Preliminary result Specimen: Bronchial Alveolar Lavage Updated: 08/24/22 2219 Acid Fast Bacilli Culture -- No Acid Fast Bacilli isolated to date If active tuberculosis is suspected, the patient should be on [employer] PRECAUTIONS. Call Infection Prevention for assistance if needed. Acid Fast Stain No Acid Fast Bacilli seen Fungus culture [[id number]] (Abnormal) Collected: 08/21/221649 Lab Status: Preliminary result Specimen: Bronchial Alveolar Lavage Updated: 08/24/22 145 Fungus Culture Rare Jacky albicans Calcofluor White Stain [[id number]] Collected: 08/21/221649 Lab Status: Final result Specimen: Bronchial Alveolar Lavage Updated: 08/21/22 2016 Calcofluor Stain Calcofluor White Preparation: Negative Lower Respiratory Culture Bronchial Alveolar Lavage [[id number]] Collected: 08/21/221644 Lab Status: Final result Specimen: Bronchial Alveolar Lavage Updated: 08/23/22 0741 Lower Respiratory Culture Rare mixed bacterial morphotypes suggestive of normal upper respiratory wiley Gram Stain -- Moderate Neutrophils seen No squamous epithelial cells seen No microorganisms seen. Fungus Culture & Calc Stain Bronchial Alveolar Lavage [[id number]] (Abnormal) Collected: 08/21/221644 Lab Status: Preliminary result Specimen: Bronchial Alveolar Lavage Updated: 08/24/22 1453 AFB culture Bronchial Alveolar Lavage [[id number]] Collected: 08/21/221644 Lab Status: Preliminary result Specimen: Bronchial Alveolar Lavage Updated: 08/24/22 2221 Acid Fast Bacilli Culture -- No Acid Fast Bacilli isolated to date If active tuberculosis is suspected, the patient should be on [employer] PRECAUTIONS. Call Infection Prevention for assistance if needed. Acid Fast Stain No Acid Fast Bacilli seen Fungus culture [[id number]] (Abnormal) Collected: 08/21/22 164 Lab Status: Preliminary result Specimen: Bronchial Alveolar Lavage Updated: 08/24/22 1453 Fungus Culture Rare Jacky albicans Calcofluor White Stain [[id number]] Collected: 08/21/22 164 Lab Status: Final result Specimen: Bronchial Alveolar Lavage Updated: 08/21/22 2017 Calcofluor Stain Calcofluor White Preparation: Negative Blood culture [[id number]] Collected: 08/19/22 1720 Lab Status: Final result Specimen: Blood Updated: 08/24/22 2301 Blood Culture No growth at 5 days. Lower Respiratory Culture Sputum Induced [[id number]] Collected: 08/19/22 1451 Lab Status: Final result Specimen: Sputum Induced Updated: 08/21/22 0948 Lower Respiratory Culture Rare mixed bacterial morphotypes suggestive of normal upper respiratory wiley Gram Stain -- Many Neutrophils seen Few squamous epithelial cells seen No microorganisms seen. Blood culture [[id number]] Collected: 08/19/22 1330 Lab Status: Final result Specimen: Blood Updated: 08/24/22 1501 Blood Culture No growth at 5 days. Legionella Urinary Antigen [[id number]] Collected: 08/18/22 1013 Lab Status: Final result [...] Catheter Urine; Other; sepsis, bacteria on UA [[id number]] Collected: 08/15/22 1225 Lab Status: Final result Specimen: Indwelling Catheter Urine Updated: 08/16/22 0804 Urine Culture 1,000-9,000 cfu/ml Insignificant growth COVID-19 PCR [[id number]] Collected: 08/15/22 1150 Lab Status: Final result [...] using the Simplexa COVID-19 Direct Assay by [employer] as authorized by the FDA issued Emergency [...] Department of Pathology and Laboratory Medicine at [facility], certified under the Clinical Laboratory Improvement Amendments [...] fact sheets at the following FDA website: https://www.fda.gov/medical-devices/ecsgfxmuyut-obbhkxu-0842-cehqp-98-cuofnmivq- ikd-tpdardtcnemowz-fjqxwpt-devices/lycrz-bbgbtnoqhjq-frdo SARS-CoV-2 Source INNER DIAMETER GRINDER TOOL Swab Lower Respiratory Culture Sputum Induced [[id number]] Collected: 04/08/23 0740 Lab Status: Final result Specimen: Sputum [...] who have questions please contact the health pediatric acute care unit nurse that requested your imaging first. Abdomen 1 [...] who have questions please contact the health pediatric acute care unit nurse that requested your imaging first. Electronically signed by: Liliane Adams MD, [facility] ([phone]), at 08/15/2022 9:05 AM XR Chest One [...] who have questions please contact the health pediatric acute care unit nurse that requested your imaging first. Electronically signed by: [facility] ([phone]), at 08/15/2022 3:55 AM XR Abdomen 1 view (Generic) (Exam End: 08/15/2022 [...] who have questions please contact the health pediatric acute care unit nurse that requested your imaging first. Chest One [...] who have questions please contact the health pediatric acute care unit nurse that requested your imaging first. Electronically signed by: Alfonso Adams MD, [facility] ([phone]), at 08/16/2022 10:[address] Head wo [...] who have questions please contact the health pediatric acute care unit nurse that requested your imaging first. Electronically signed by: Moustapha Correa MD, [facility] ([phone]), at 08/16/2022 11:19 PM XR Abdomen 1 [...] who have questions please contact the health pediatric acute care unit nurse that requested your imaging first. Head wo Contrast (Generic) (Exam End: 08/18/2022 3:14 PM) Impression No acute intracranial process. Thank you for letting us participate in the care of this patient. If you are a health care provider and have any questions regarding this report, please contact the number below. For patients who have questions please contact the health pediatric acute care unit nurse that requested your imaging first. Electronically signed by: Antonio Jordan MD, [facility] ([phone]), at 08/18/2022 3:18 PM XR Chest One [...] who have questions please contact the health pediatric acute care unit nurse that requested your imaging first. Electronically signed by: Alan De Guzman MD, [facility] ([phone]), at 08/19/2022 3:14 PM MRI Brain wo Contrast (Exam End: 08/19/2022 10:15 PM) Impression No acute infarction, mass or mass effect. Thank you for letting us participate in the care of this patient. If you are a health care provider and have any questions regarding this report, please contact the number below. For patients who have questions please contact the health pediatric acute care unit nurse that requested your imaging first. Electronically signed by: Jagdeep Lee MD, [facility] ([phone]), at 08/20/2022 3:34 AM XR Chest for Verifying Vascular Access PICC [...] who have questions please contact the health pediatric acute care unit nurse that requested your imaging first. Electronically signed by: Alan De Guzman MD, [facility] ([phone]), at 08/19/2022 4:[address] Hip w [...] who have questions please contact the health pediatric acute care unit nurse that requested your imaging first. Electronically signed by: Aicha Chowdhury MD, [facility] ([phone]), at 08/21/2022 9:[address] Chest w [...] who have questions please contact the health pediatric acute care unit nurse that requested your imaging first. Electronically signed by: Jagdeep Lee MD, [facility] ([phone]), at 08/21/2022 6:56 AM XR Hip 2-3 Views Left (Exam End: 08/22/2022 12:19 AM) Impression No radiographic evidence of infection. Thank you for letting us participate in the care of this patient. If you are a health care provider and have any questions regarding this report, please contact the number below. For patients who have questions please contact the health pediatric acute care unit nurse that requested your imaging first. Electronically signed by: Viktor Cervantes MD, [facility] ([phone]), at 08/22/2022 12:43 PM XR Pelvis (Generic) (Exam End: 08/22/2022 12:19 AM) Impression No radiographic evidence of infection status post left hip ORIF. Thank you for letting us participate in the care of this patient. If you are a health care provider and have any questions regarding this report, please contact the number below. For patients who have questions please contact the health pediatric acute care unit nurse that requested your imaging first. Electronically signed by: Richard Billings MD, [facility] ([phone]), at 08/22/2022 10:[address] Angiogram Coronary [...] who have questions please contact the health pediatric acute care unit nurse that requested your imaging first. Electronically signed by: Arlette Mays MD, [facility] ([phone]), at 08/27/2022 11:[address] Chest wo Contrast (Generic) (Exam End: 08/27/2022 8:58 AM) Impression Stable findings of multifocal pneumonia. No interval abnormality. Thank you for letting us participate in the care of this patient. If you are a health care provider and have any questions regarding this report, please contact the number below. For patients who have questions please contact the health pediatric acute care unit nurse that requested your imaging first. Electronically signed by: MINH QUIROGA MD, [facility] ([phone]), at 08/27/2022 10:48 AM XR Fluoro Barium [...] who have questions please contact the health pediatric acute care unit nurse that requested your imaging first. Electronically signed by: Aron Billings MD, [facility] ([phone]), at 08/31/2022 12:02 PM XR Fluoro Barium [...] who have questions please contact the health pediatric acute care unit nurse that requested your imaging first. Electronically signed by: Alfonso Adams MD, [facility] ([phone]), at 09/04/2022 10:57 AM XR Abdomen 1 [...] who have questions please contact the health pediatric acute care unit nurse that requested your imaging first. Electronically signed by: Jagdeep Lee MD, [facility] ([phone]), at 09/04/2022 10:35 PM XR Chest One View (Exam End: 09/04/2022 9:47 [...] who have questions please contact the health pediatric acute care unit nurse that requested your imaging first. Electronically signed by: Jagdeep Lee MD, [facility] ([phone]), at 09/04/2022 10:35 PM XR Chest One View (Exam End: 09/05/2022 9:24 AM) Impression 1. Reposition enteric tube now extending below the diaphragm and included [id number]. 2. Similar appearance of elevated right hemidiaphragm and linear/patchy bibasilar opacities which may represent atelectasis or possibly aspiration. Thank you for letting us participate in the care of this patient. If you are a health care provider and have any questions regarding this report, please contact the number below. For patients who have questions please contact the health pediatric acute care unit nurse that requested your imaging first. Electronically signed by: AUDI PERDOMO MD, [facility] ([phone]), at 09/05/2022 3:43 PM XR Abdomen 1 [...] who have questions please contact the health pediatric acute care unit nurse that requested your imaging first. Electronically signed by: Camille Garcia MD, [facility] ([phone]), at 09/10/2022 1:16 AM Medications: Scheduled: ??? [...] ??? insulin lispro 1-10 Units Subcutaneous Q4H JARED ??? miconazole nitrate Topical (Top) BID ??? [...] RD??c/b??esophagitis &??Farrell's esophagus, who was admitted to [facility] on 08/14/2022 (now on Hospital Day #23) [...] her insurance that lacks rehab coverage requiring [employer] inspector care medicaid. Her application has been submitted. [...] nightly - C/w valproate 300mg q6h - [facility] following, NPO at present - Psychiatry Consult, [...] Medicine PGY1 Medicine Team: Jose Juan, Pager #[phone] Date: 09/14/2022 Associated attestation - Balaji Fraga [...] of two midnights or is on the [facility] inpatient only procedure list (status C) due to: the patient has met Inpatient IPI criteria and is awaiting rehabilitation or fci facility placement with active referrals in process * Chau Keith MD - 09/13/2022 6:09 AM EDT Images from the original note were not included. Inpatient Hospital Medicine Progress Note 09/13/2022 Patient Name: ISHAN IRVING Date of : 1960 Age: 62 y.o. Hospital Admit Date: 08/14/2022 Hospital Day: 30 Inpatient Attending: Chong Chao MD PCP: Chris Stanley APRN ([phone]) ID: Ishan Irving is a 62 y.o. 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.5 years) c/b chronic pancreatitis, iron deficiency anemia, ??GERD??c/b??esophagitis &??Farrell's esophagus, who was admitted to [facility] on 08/14/2022 (now on Hospital Day #30) [...] fellows interpretation Confirmed by fellow Niurka Rose ([id number]) on 09/07/2022 8:45:34 AM Confirmed by MD [...] Date/Time Lower Respiratory Culture Bronchial Alveolar Lavage [[id number]] Collected: 08/21/221649 Lab Status: Final result Specimen: Bronchial Alveolar Lavage Updated: 08/23/22740 Lower Respiratory Culture Rare mixed bacterial morphotypes suggestive of normal upper respiratory wiley Gram Stain -- Few Neutrophils seen No squamous epithelial cells seen No microorganisms seen. Fungus Culture & Calc Stain Bronchial Alveolar Lavage [[id number]] (Abnormal) Collected: 08/21/221649 Lab Status: Preliminary result Specimen: Bronchial Alveolar Lavage Updated: 08/24/22 145 AFB culture Bronchial Alveolar Lavage [[id number]] Collected: 08/21/221649 Lab Status: Preliminary result Specimen: Bronchial Alveolar Lavage Updated: 08/24/22 221 Acid Fast Bacilli Culture -- No Acid Fast Bacilli isolated to date If active tuberculosis is suspected, the patient should be on [employer] PRECAUTIONS. Call Infection Prevention for assistance if needed. Acid Fast Stain No Acid Fast Bacilli seen Fungus culture [[id number]] (Abnormal) Collected: 08/21/221649 Lab Status: Preliminary result Specimen: Bronchial Alveolar Lavage Updated: 08/24/22 145 Fungus Culture Rare Jacky albicans Calcofluor White Stain [[id number]] Collected: 08/21/221649 Lab Status: Final result Specimen: Bronchial Alveolar Lavage Updated: 08/21/222015 Calcofluor Stain Calcofluor White Preparation: Negative Lower Respiratory Culture Bronchial Alveolar Lavage [[id number]] Collected: 08/21/221644 Lab Status: Final result Specimen: Bronchial Alveolar Lavage Updated: 04/16/23 0741 Lower Respiratory Culture Rare mixed bacterial morphotypes suggestive of normal upper respiratory wiley Gram Stain -- Moderate Neutrophils seen No squamous epithelial cells seen No microorganisms seen. Fungus Culture & Calc Stain Bronchial Alveolar Lavage [[id number]] (Abnormal) Collected: 08/21/221644 Lab Status: Preliminary result Specimen: Bronchial Alveolar Lavage Updated: 08/24/22 1453 AFB culture Bronchial Alveolar Lavage [[id number]] Collected: 08/21/221644 Lab Status: Preliminary result Specimen: Bronchial Alveolar Lavage Updated: 08/24/22 222 Acid Fast Bacilli Culture -- No Acid Fast Bacilli isolated to date If active tuberculosis is suspected, the patient should be on [employer] PRECAUTIONS. Call Infection Prevention for assistance if needed. Acid Fast Stain No Acid Fast Bacilli seen Fungus culture [[id number]] (Abnormal) Collected: 08/21/221644 Lab Status: Preliminary result Specimen: Bronchial Alveolar Lavage Updated: 08/24/22 145 Fungus Culture Rare Jacky albicans Calcofluor White Stain [[id number]] Collected: 08/21/221644 Lab Status: Final result Specimen: Bronchial Alveolar Lavage Updated: 08/21/22 2017 Calcofluor Stain Calcofluor White Preparation: Negative Blood culture [[id number]] Collected: 08/19/22 1720 Lab Status: Final result Specimen: Blood Updated: 08/24/22 2301 Blood Culture No growth at 5 days. Lower Respiratory Culture Sputum Induced [[id number]] Collected: 08/19/22 1451 Lab Status: Final result Specimen: Sputum Induced Updated: 08/21/22 0948 Lower Respiratory Culture Rare mixed bacterial morphotypes suggestive of normal upper respiratory wiley Gram Stain -- Many Neutrophils seen Few squamous epithelial cells seen No microorganisms seen. Blood culture [[id number]] Collected: 08/19/22 1330 Lab Status: Final result Specimen: Blood Updated: 08/24/22 1501 Blood Culture No growth at 5 days. Legionella Urinary Antigen [[id number]] Collected: 08/18/22 1013 Lab Status: Final result [...] Catheter Urine; Other; sepsis, bacteria on UA [[id number]] Collected: 08/15/22 1225 Lab Status: Final result Specimen: Indwelling Catheter Urine Updated: 08/16/22 0804 Urine Culture 1,000-9,000 cfu/ml Insignificant growth COVID-19 PCR [[id number]] Collected: 08/15/22 1150 Lab Status: Final result [...] using the [employer]plex[employer] COVID-19 Direct Assay by [employer] as authorized by the FDA issued Emergency [...] Department of Pathology and Laboratory Medicine at [facility], certified under the Clinical Laboratory Improvement Amendments [...] fact sheets at the following FDA website: https://www.fda.gov/medical-devices/jibpdbsnqsj-trcthgp-8788-lavvl-55-tuzgbpzut- tfl-hnxsupmqgtrvbk-wfhrbre-devices/vojzs-uzielqmwqty-iufk SARS-CoV-2 Source INNER DIAMETER GRINDER TOOL Swab Lower Respiratory Culture Sputum Induced [[id number]] Collected: 08/15/22 0740 Lab Status: Final result Specimen: Sputum Induced Updated: 08/17/22 1015 Lower Respiratory Culture Rare normal upper respiratory wiley Gram Stain -- Many Neutrophils Few squamous epithelial cells Rare mixed bacterial morphotypes suggestive of normal upper respiratory wiley Blood culture [[id number]] Collected: 08/15/22 0110 Lab Status: Final result Specimen: Blood Updated: 08/20/22 0701 Blood Culture No growth at 5 days. MRSA PCR Screen ([facility]/CGP/APD/NLH) [[id number]] Collected: 08/15/22 0050 Lab Status: Final result Specimen: Nasopharyngeal Swab Updated: 08/17/22 1419 MRSA Result Negative MRSA Interp -- Methicillin-resistant Staphylococcus aureus (MRSA) is NOT DETECTED The MRSA target DNA sequences (mec and SCC) were not detected within the acceptable ranges using the Xpert MRSA NxG on the GeneXpert Dx System ([employer]). This suggests the absence of MRSA in the patient specimen submitted for testing. This test is cleared by the U.S. Food and Drug Administration for clinical use and its performance characteristics have been verified by the [facility] at [facility]. This result does not rule out the presence of any other organisms. Rare false negative results may occur if MRSA is present at low concentrations with much higher concentrations of other organisms including MRSE or S. aureus with an empty SCC cassette. Comment: [VERIFIED DATE]08.17.22 Verified By:Shannon Smiley (Electronic Signature) Blood culture [[id number]] Collected: 08/14/22 0942 Lab Status: Final result Specimen: Blood Updated: [...] who have questions please contact the health pediatric acute care unit nurse that requested your imaging first. Abdomen 1 [...] who have questions please contact the health pediatric acute care unit nurse that requested your imaging first. Electronically signed by: Liliane Adams MD, [facility] ([phone]), at 08/15/2022 9:05 AM XR Chest One [...] who have questions please contact the health pediatric acute care unit nurse that requested your imaging first. Abdomen 1 [...] who have questions please contact the health pediatric acute care unit nurse that requested your imaging first. Chest One [...] who have questions please contact the health pediatric acute care unit nurse that requested your imaging first. Electronically signed by: Alfonso Adams MD, [facility] ([phone]), at 08/16/2022 10:[address] Head wo [...] who have questions please contact the health pediatric acute care unit nurse that requested your imaging first. Electronically signed by: Moustapha Correa MD, [facility] ([phone]), at 08/16/2022 11:19 PM XR Abdomen 1 [...] who have questions please contact the health pediatric acute care unit nurse that requested your imaging first. Head wo Contrast (Generic) (Exam End: 08/18/2022 3:14 PM) Impression No acute intracranial process. Thank you for letting us participate in the care of this patient. If you are a health care provider and have any questions regarding this report, please contact the number below. For patients who have questions please contact the health pediatric acute care unit nurse that requested your imaging first. Electronically signed by: Antonio Jordan MD, [facility] ([phone]), at 08/18/2022 3:18 PM XR Chest One [...] who have questions please contact the health pediatric acute care unit nurse that requested your imaging first. Electronically signed by: Alan De Guzman MD, [facility] ([phone]), at 08/19/2022 3:14 PM MRI Brain wo Contrast (Exam End: 08/19/2022 10:15 PM) Impression No acute infarction, mass or mass effect. Thank you for letting us participate in the care of this patient. If you are a health care provider and have any questions regarding this report, please contact the number below. For patients who have questions please contact the health pediatric acute care unit nurse that requested your imaging first. Electronically signed by: Jagdeep Lee MD, [facility] ([phone]), at 08/20/2022 3:34 AM XR Chest for Verifying Vascular Access PICC [...] who have questions please contact the health pediatric acute care unit nurse that requested your imaging first. Electronically signed by: Alan De Guzman MD, [facility] ([phone]), at 08/19/2022 4:[address] Hip w [...] who have questions please contact the health pediatric acute care unit nurse that requested your imaging first. Electronically signed by: Aicha Chowdhury MD, [facility] ([phone]), at 08/21/2022 9:[address] Chest w [...] who have questions please contact the health pediatric acute care unit nurse that requested your imaging first. Electronically signed by: Jagdeep Lee MD, [facility] ([phone]), at 08/21/2022 6:56 AM XR Hip 2-3 Views Left (Exam End: 08/22/2022 12:19 AM) Impression No radiographic evidence of infection. Thank you for letting us participate in the care of this patient. If you are a health care provider and have any questions regarding this report, please contact the number below. For patients who have questions please contact the health pediatric acute care unit nurse that requested your imaging first. Electronically signed by: Viktor Cervantes MD, [facility] ([phone]), at 08/22/2022 12:43 PM XR Pelvis (Generic) (Exam End: 08/22/2022 12:19 AM) Impression No radiographic evidence of infection status post left hip ORIF. Thank you for letting us participate in the care of this patient. If you are a health care provider and have any questions regarding this report, please contact the number below. For patients who have questions please contact the health pediatric acute care unit nurse that requested your imaging first. Electronically signed by: Richard Billings MD, [facility] ([phone]), at 08/22/2022 10:[address] Angiogram Coronary [...] who have questions please contact the health pediatric acute care unit nurse that requested your imaging first. Electronically signed by: Arlette Mays MD, [facility] ([phone]), at 08/27/2022 11:[address] Chest wo Contrast (Generic) (Exam End: 08/27/2022 8:58 AM) Impression Stable findings of multifocal pneumonia. No interval abnormality. Thank you for letting us participate in the care of this patient. If you are a health care provider and have any questions regarding this report, please contact the number below. For patients who have questions please contact the health pediatric acute care unit nurse that requested your imaging first. Electronically signed by: MINH QUIROGA MD, [facility] ([phone]), at 08/27/2022 10:48 AM XR Fluoro Barium [...] who have questions please contact the health pediatric acute care unit nurse that requested your imaging first. Electronically signed by: [facility] ([phone]), at 08/31/2022 12:02 PM XR Fluoro Barium [...] who have questions please contact the health pediatric acute care unit nurse that requested your imaging first. Electronically signed by: Alfonso Adams MD, [facility] ([phone]), at 09/04/2022 10:57 AM XR Abdomen 1 [...] who have questions please contact the health pediatric acute care unit nurse that requested your imaging first. Electronically signed by: Jagdeep Lee MD, [facility] ([phone]), at 09/04/2022 10:35 PM XR Chest One View (Exam End: 09/04/2022 9:47 [...] who have questions please contact the health pediatric acute care unit nurse that requested your imaging first. Electronically signed by: Jagdeep Lee MD, [facility] ([phone]), at 09/04/2022 10:35 PM XR Chest One View (Exam End: 09/05/2022 9:24 AM) Impression 1. Reposition enteric tube now extending below the diaphragm and included [id number]. 2. Similar appearance of elevated right hemidiaphragm and linear/patchy bibasilar opacities which may represent atelectasis or possibly aspiration. Thank you for letting us participate in the care of this patient. If you are a health care provider and have any questions regarding this report, please contact the number below. For patients who have questions please contact the health pediatric acute care unit nurse that requested your imaging first. Electronically signed by: AUDI PERDOMO MD, [facility] ([phone]), at 09/05/2022 3:43 PM XR Abdomen 1 [...] who have questions please contact the health pediatric acute care unit nurse that requested your imaging first. Electronically signed by: Camille Garcia MD, [facility] ([phone]), at 09/10/2022 1:16 AM Medications: Scheduled: ??? [...] ??? insulin lispro 1-10 Units Subcutaneous Q4H JARED ??? miconazole nitrate Topical (Top) BID ??? [...] RD??c/b??esophagitis &??Farrell's esophagus, who was admitted to [facility] on 08/14/2022 (now on Hospital Day #23) [...] her insurance that lacks rehab coverage requiring [employer] medicaid. Her application has been submitted. [...] nightly - C/w valproate 300mg q6h - [employer] following, NPO at present - Psychiatry Consult, [...] Medicine PGY1 Medicine Team: Jose Juan, Pager #[phone] Date: 09/13/2022 Associated attestation - Chong Chao MD - 09/13/2022 7:55 PM EDT Hospital Medicine Service Attending Documentation I certify that I am a D-H credentialed attending provider with admitting privileges and that the patient meets or has met medical necessity to require an inpatient IPI level of care meeting a minimumof two midnights or is on the [facility] inpatient only procedure list (status C) [...] No acute overnight events. Gastrostomy tube placed 5/. Minimal pain at percutaneous access site. Started [...] will sign off at this time. Page [phone] with questions/concerns Rayray Platt DO * Jigar Streeter MD - 09/12/2022 7:29 AM EDT Images from the original note were not included. Inpatient Hospital Medicine Progress Note 09/12/2022 Patient Name: ISHAN IRVING Date of : 1960 Age: 62 y.o. Hospital Admit Date: 08/14/2022 Hospital Day: 29 Inpatient Attending: Molina Flores MD PCP: Chris Stanley APRN ([phone]) ID: Ishan Irving is a 62 y.o. 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.5 years) c/b chronic pancreatitis, iron deficiency anemia, ??GERD??c/b??esophagitis &??Farrell's esophagus, who was admitted to [facility] on 08/14/2022 (now on Hospital Day #29) [...] 8 8 10 9 Recent Labs 09/12/22 03209/11/22 0405 09/10/22 0600 09/09/22 0400 09/08/22 0200 [...] fellows interpretation Confirmed by fellow Niurka Rose ([id number]) on 09/07/2022 8:45:34 AM Confirmed by MD [...] Date/Time Lower Respiratory Culture Bronchial Alveolar Lavage [[id number]] Collected: 08/21/22 1650 Lab Status: Final result Specimen: Bronchial Alveolar Lavage Updated: 08/23/22 0741 Lower Respiratory Culture Rare mixed bacterial morphotypes suggestive of normal upper respiratory wiley Gram Stain -- Few Neutrophils seen No squamous epithelial cells seen No microorganisms seen. Fungus Culture & Calc Stain Bronchial Alveolar Lavage [[id number]] (Abnormal) Collected: 08/21/221649 Lab Status: Preliminary result Specimen: Bronchial Alveolar Lavage Updated: 08/24/22 1452 AFB culture Bronchial Alveolar Lavage [[id number]] Collected: 08/21/221649 Lab Status: Preliminary result Specimen: Bronchial Alveolar Lavage Updated: 08/24/22 221 Acid Fast Bacilli Culture -- No Acid Fast Bacilli isolated to date If active tuberculosis is suspected, the patient should be on [employer] PRECAUTIONS. Call Infection Prevention for assistance if needed. Acid Fast Stain No Acid Fast Bacilli seen Fungus culture [[id number]] (Abnormal) Collected: 08/21/221649 Lab Status: Preliminary result Specimen: Bronchial Alveolar Lavage Updated: 08/24/22 145 Fungus Culture Rare Jacky albicans Calcofluor White Stain [[id number]] Collected: 08/21/221649 Lab Status: Final result Specimen: Bronchial Alveolar Lavage Updated: 08/21/222015 Calcofluor Stain Calcofluor White Preparation: Negative Lower Respiratory Culture Bronchial Alveolar Lavage [[id number]] Collected: 08/21/221644 Lab Status: Final result Specimen: Bronchial Alveolar Lavage Updated: 08/23/22 0741 Lower Respiratory Culture Rare mixed bacterial morphotypes suggestive of normal upper respiratory wiley Gram Stain -- Moderate Neutrophils seen No squamous epithelial cells seen No microorganisms seen. Fungus Culture & Calc Stain Bronchial Alveolar Lavage [[id number]] (Abnormal) Collected: 08/21/221644 Lab Status: Preliminary result Specimen: Bronchial Alveolar Lavage Updated: 08/24/22 1453 AFB culture Bronchial Alveolar Lavage [[id number]] Collected: 08/21/221644 Lab Status: Preliminary result Specimen: Bronchial Alveolar Lavage Updated: 08/24/22 222 Acid Fast Bacilli Culture -- No Acid Fast Bacilli isolated to date If active tuberculosis is suspected, the patient should be on [employer] PRECAUTIONS. Call Infection Prevention for assistance if needed. Acid Fast Stain No Acid Fast Bacilli seen Fungus culture [[id number]] (Abnormal) Collected: 08/21/221644 Lab Status: Preliminary result Specimen: Bronchial Alveolar Lavage Updated: 04/17/23 1453 Fungus Culture Rare Jacky albicans Calcofluor White Stain [[id number]] Collected: 08/21/22 1645 Lab Status: Final result Specimen: Bronchial Alveolar Lavage Updated: 08/21/22 2017 Calcofluor Stain Calcofluor White Preparation: Negative Blood culture [[id number]] Collected: 08/19/22 1720 Lab Status: Final result Specimen: Blood Updated: 08/24/22 2301 Blood Culture No growth at 5 days. Lower Respiratory Culture Sputum Induced [[id number]] Collected: 08/19/22 1451 Lab Status: Final result Specimen: Sputum Induced Updated: 08/21/22 0948 Lower Respiratory Culture Rare mixed bacterial morphotypes suggestive of normal upper respiratory wiley Gram Stain -- Many Neutrophils seen Few squamous epithelial cells seen No microorganisms seen. Blood culture [[id number]] Collected: 08/19/22 1330 Lab Status: Final result Specimen: Blood Updated: 08/24/22 1501 Blood Culture No growth at 5 days. Legionella Urinary Antigen [[id number]] Collected: 08/18/22 1013 Lab Status: Final result [...] Catheter Urine; Other; sepsis, bacteria on UA [[id number]] Collected: 08/15/22 1225 Lab Status: Final result Specimen: Indwelling Catheter Urine Updated: 08/16/22 0804 Urine Culture 1,000-9,000 cfu/ml Insignificant growth COVID-19 PCR [[id number]] Collected: 08/15/22 1150 Lab Status: Final result [...] diagnosis of COVID-19 is performed using the [employer] COVID-19 Direct Assay by [employer] as authorized by the FDA issued Emergency [...] Department of Pathology and Laboratory Medicine at [facility], certified under the Clinical Laboratory Improvement Amendments [...] fact sheets at the following FDA website: https://www.fda.gov/medical-devices/xhlzspomwji-nalwemh-7138-gzhfq-65-cfidencrl- xag-eltvfvdarmhnlk-vrlhvez-devices/wcotj-jcfvbeaecnn-tuln SARS-CoV-2 Source INNER DIAMETER GRINDER TOOL Swab Lower Respiratory Culture Sputum Induced [[id number]] Collected: 08/15/22 0740 Lab Status: Final result Specimen: Sputum Induced Updated: 08/17/22 1015 Lower Respiratory Culture Rare normal upper respiratory wiley Gram Stain -- Many Neutrophils Few squamous epithelial cells Rare mixed bacterial morphotypes suggestive of normal upper respiratory wiley Blood culture [[id number]] Collected: 08/15/22 0110 Lab Status: Final result Specimen: Blood Updated: 08/20/22 0701 Blood Culture No growth at 5 days. MRSA PCR Screen ([facility]/CGP/APD/NLH) [[id number]] Collected: 08/15/22 0050 Lab Status: Final result Specimen: Nasopharyngeal Swab Updated: 08/17/22 1419 MRSA Result Negative MRSA Interp -- Methicillin-resistant Staphylococcus aureus (MRSA) is NOT DETECTED The MRSA target DNA sequences (mec and SCC) were not detected within the acceptable ranges using the Xpert MRSA NxG on the GeneXpert Dx System ([employer]). This suggests the absence of MRSA in the patient specimen submitted for testing. This test is cleared by the U.S. Food and Drug Administration for clinical use and its performance characteristics have been verified by the [facility] at [facility]. This result does not rule out the presence of any other organisms. Rare false negative results may occur if MRSA is present at low concentrations with much higher concentrations of other organisms including MRSE or S. aureus with an empty SCC cassette. Comment: [VERIFIED DATE]08.17.22 Verified By:Shannon Smiley (Electronic Signature) Blood culture [[id number]] Collected: 08/14/22 2355 Lab Status: Final result [...] who have questions please contact the health pediatric acute care unit nurse that requested your imaging first. Abdomen 1 [...] who have questions please contact the health pediatric acute care unit nurse that requested your imaging first. Electronically signed by: Liliane Adams MD, [facility] ([phone]), at 08/15/2022 9:05 AM XR Chest One [...] who have questions please contact the health pediatric acute care unit nurse that requested your imaging first. Abdomen 1 [...] who have questions please contact the health pediatric acute care unit nurse that requested your imaging first. Chest One [...] who have questions please contact the health pediatric acute care unit nurse that requested your imaging first. Electronically signed by: Alfonso Adams MD, [facility] ([phone]), at 08/16/2022 10:[address] Head wo [...] who have questions please contact the health pediatric acute care unit nurse that requested your imaging first. Electronically signed by: Moustapha Correa MD, [facility] ([phone]), at 08/16/2022 11:19 PM XR Abdomen 1 [...] who have questions please contact the health pediatric acute care unit nurse that requested your imaging first. Head wo Contrast (Generic) (Exam End: 08/18/2022 3:14 PM) Impression No acute intracranial process. Thank you for letting us participate in the care of this patient. If you are a health care provider and have any questions regarding this report, please contact the number below. For patients who have questions please contact the health pediatric acute care unit nurse that requested your imaging first. Electronically signed by: Antonio Jordan MD, [facility] ([phone]), at 08/18/2022 3:18 PM XR Chest One [...] who have questions please contact the health pediatric acute care unit nurse that requested your imaging first. Electronically signed by: Alan De Guzman MD, [facility] ([phone]), at 08/19/2022 3:14 PM MRI Brain wo Contrast (Exam End: 08/19/2022 10:15 PM) Impression No acute infarction, mass or mass effect. Thank you for letting us participate in the care of this patient. If you are a health care provider and have any questions regarding this report, please contact the number below. For patients who have questions please contact the health pediatric acute care unit nurse that requested your imaging first. Electronically signed by: Jagdeep Lee MD, [facility] ([phone]), at 08/20/2022 3:34 AM XR Chest for Verifying Vascular Access PICC [...] who have questions please contact the health pediatric acute care unit nurse that requested your imaging first. Electronically signed by: Alna De Guzman MD, [facility] ([phone]), at 08/19/2022 4:[address] Hip w [...] who have questions please contact the health pediatric acute care unit nurse that requested your imaging first. Electronically signed by: Aicha Chowdhury MD, [facility] ([phone]), at 08/21/2022 9:[address] Chest w [...] who have questions please contact the health pediatric acute care unit nurse that requested your imaging first. Electronically signed by: Jagdeep Lee MD, [facility] ([phone]), at 08/21/2022 6:56 AM XR Hip 2-3 Views Left (Exam End: 08/22/2022 12:19 AM) Impression No radiographic evidence of infection. Thank you for letting us participate in the care of this patient. If you are a health care provider and have any questions regarding this report, please contact the number below. For patients who have questions please contact the health pediatric acute care unit nurse that requested your imaging first. Electronically signed by: Viktor Cervantes MD, [facility] ([phone]), at 08/22/2022 12:43 PM XR Pelvis (Generic) (Exam End: 08/22/2022 12:19 AM) Impression No radiographic evidence of infection status post left hip ORIF. Thank you for letting us participate in the care of this patient. If you are a health care provider and have any questions regarding this report, please contact the number below. For patients who have questions please contact the health pediatric acute care unit nurse that requested your imaging first. Electronically signed by: Richard Billings MD, [facility] ([phone]), at 08/22/2022 10:[address] Angiogram Coronary [...] who have questions please contact the health pediatric acute care unit nurse that requested your imaging first. Electronically signed by: Arlette Mays MD, [facility] ([phone]), at 08/27/2022 11:[address] Chest wo Contrast (Generic) (Exam End: 08/27/2022 8:58 AM) Impression Stable findings of multifocal pneumonia. No interval abnormality. Thank you for letting us participate in the care of this patient. If you are a health care provider and have any questions regarding this report, please contact the number below. For patients who have questions please contact the health pediatric acute care unit nurse that requested your imaging first. Electronically signed by: MINH QUIROGA MD, [facility] ([phone]), at 08/27/2022 10:48 AM XR Fluoro Barium [...] who have questions please contact the health pediatric acute care unit nurse that requested your imaging first. Electronically signed by: Aron Billings MD, [facility] ([phone]), at 08/31/2022 12:02 PM XR Fluoro Barium [...] who have questions please contact the health pediatric acute care unit nurse that requested your imaging first. Electronically signed by: Alfonso Adams MD, [facility] ([phone]), at 09/04/2022 10:57 AM XR Abdomen 1 [...] who have questions please contact the health pediatric acute care unit nurse that requested your imaging first. Electronically signed by: Jagdeep Lee MD, [facility] ([phone]), at 09/04/2022 10:35 PM XR Chest One View (Exam End: 09/04/2022 9:47 [...] who have questions please contact the health pediatric acute care unit nurse that requested your imaging first. Electronically signed by: Jagdeep Lee MD, [facility] ([phone]), at 09/04/2022 10:35 PM XR Chest One View (Exam End: 09/05/2022 9:24 AM) Impression 1. Reposition enteric tube now extending below the diaphragm and included [id number]-[id number]. 2. Similar appearance of elevated right hemidiaphragm and linear/patchy bibasilar opacities which may represent atelectasis or possibly aspiration. Thank you for letting us participate in the care of this patient. If you are a health care provider and have any questions regarding this report, please contact the number below. For patients who have questions please contact the health pediatric acute care unit nurse that requested your imaging first. Electronically signed by: AUDI PERDOMO MD, [facility] ([phone]), at 09/05/2022 3:43 PM XR Abdomen 1 [...] who have questions please contact the health pediatric acute care unit nurse that requested your imaging first. Electronically signed by: Camille Garcia MD, [facility] ([phone]), at 09/10/2022 1:16 AM Medications: Scheduled: ??? [...] ??? insulin lispro 1-10 Units Subcutaneous Q4H JARED ??? miconazole nitrate Topical (Top) BID ??? [...] RD??c/b??esophagitis &??Farrell's esophagus, who was admitted to [facility] on 08/14/2022 (now on Hospital Day #23) [...] her insurance that lacks rehab coverage requiring fdc care medicaid. Her application has been submitted. Today's plan: - restart tube feeds via G tube - transition medications to G tube - adjust insulin regimen as appropriate and monitor for refeeding syndrome # Bipolar Disorder - Continue Seroquel 100mg nightly - C/w valproate 300mg q6h - [facility]IP [facility]NER following, NPO at present - Psychiatry Consult, [...] Medicine PGY2 Medicine Team: Jose Juan, Pager #[phone] Date: 09/12/2022 Associated attestation - Chong Chao MD - 09/12/2022 9:10 PM EDT Hospital Medicine Service Attending Documentation I certify that I am a D-H credentialed attending provider with admitting privileges and that the patient meets or has met medical necessity to require an inpatient IPI level of care meeting a minimumof two midnights or is on the [facility] inpatient only procedure list (status C) [...] early this week. CHONG CHAO MD * Rosie Anguiano RN - 09/12/2022 1:54 AM EDT OUTCOME [...] CPG GOAL OUTCOME EVALUATION: ? * Wilda Blankenship, RD - 09/11/2022 3:12 PM EDT Nutrition Brief Note Ishan Johanny Irving??is a 62 y.o.??female??with h/o bipolar, DM, EtOH, esophagitis, who presented to [facility] 3 days ago after being found unresponsive at home.?Patient found to have likely pneumonia+/- aspiration, newly reduced EF. Reason for intervention: Follow up Nutrition Recommendations: ?? S/p PEG placement, resume current TF: Cyclic Peptamen AF??at 90ml/hr for 14 hrs from [id number] (pended). At goal, this will provide: Peptamen [...] p.o. Intake, etc. ?? Po diet per SHIP [facility]NER (recs 09/04 NPO s/p MBS) ?? Continue 50,000 units vitamin D weekly; 1000 mcg folic acid and 100 mg thiamine daily. ?? Off unit in IR for PEG placement at time of my visit. THANKS Wilda Blankenship RD Pager #:[phone] * Mary Penny RN - 09/11/2022 1:35 PM EDT Called to see Ishan Johanny Irving who is a 62 y.o., female by nursing janitor supervisor RM at the requestof charge nurse on unit. Referring provider: Chau Keith MD Date of Referral: 09/10 (unable to get done 09/10 therefore done 09/11) for a small bore insertion team consult. Admission Date/Time: 08/14/22 Hospital Day:28 Admitting Diagnosis:shock, multifocal pneumonia, and a newly reduced LVEF. Ordering Physician: Chau Keith MD Indication:Tube feeding, associate professor of library media Weighted or Not Weighted: weighted Ordered destination: [...] discomfort from DHT attempt. * Alicia Gillis T - 09/11/2022 11:10 AM EDTSjasviry: [place] Medicaid [place] Visitor Services Representative Care application (Form 202LTC) completed on 09/11/2022 Authorized Nanoscience Technician Form (Form 139REP) completed and designated to Antonio Irving and Alicia Gillis Copy made of all application documents. Statement of Understand for Choices for Care Visitor Services Representative Medicaid provided to patient/family. Submitted all documents to [place] DCF/ESD Application and Document Processing Center via [place]'s [employer] on 09/11/2022 for submission and processing. Anticipated Timeline: ??? LTC application should be acknowledged by [place]'s Department of [place] Health Access and Disabilities, Aging and Independent Living ([facility]) within 1-10 business days dependent on method of the application's submission. ??? Then, the [facility] sales representative groceries aka [facility] RN assigned will contact [facility] to request clinicaldocumentation to submit to them for the clinical assessment they will complete. ??? The results from the clinical assessment by the [facility] RN assigned will be forwarded to the [facility] Financial Jump Roll Operator (FBS) assigned to conduct the application intake process with date & time for the mandatory Phone Eligibility Interview. ??? Next, the FBS will conduct the intake interview with the applicant or applicant's Authorized Nanoscience Technician and generate a list of proofs or verifications required for [facility] to move through the application process for [...] applicant's application is financially and medicallycleared by [facility] at the time the applicant has been discharged from [facility] for which outcomes can vary between [...] &??Farrell's esophagus??presenting in transfer from [facility], suspected to be in cardiogenic shock and foundto be in mixed shock with concern for stress cardiomyopathy.??She is s/p ORIF left femoral neck frac ture. ?? Precautions/Special Considerations: aspiration, skin breakdown, falls, LLE WBAT, Dobhoff tube, Mcrae Interval History: 09/11 pr DHT, J-G tube pending, Yesterday: ??? Surgery could [...] Therapy: 48 (x2 schm, x1 thera act [id number]) Pager: [phone] DANIELA Montes 09/11/2022 Occupational Therapy Rehabilitation Department * Briana Bryant, [facility] - 09/11/2022 10:13 AM EDT Speech-Language Pathology Consult Note Ishan Irving is a 62 year old female with a medical history notable for??recent L femoral neck fracture,??bipolar disorder, resolving medication- induced Parkinsonism, insulin-dependent diabetesmellitus,??hx of alcohol use disorder (reported to be in remission for 1.5 years) c/b chronic pancreatitis, iron deficiency anemia,??GERD??c/b??esophagitis &??Farrell's esophagus??presenting in transfer from [facility]??on 08/14/2022, suspected to be in cardiogenic shock and found to be in mixed shock with concern for stress cardiomyopathy.??SHIP [facility]NER following for swallow, cognitive tx. MBS completed [...] placement as well as GJ tube placement. SHIP [facility]NER team has been following pt for dysphagia in ICU. Transferred to floor on 09/07/22. SHIP [facility]NER have been unable to work w/ Pt on PO trials due to NPO for potential PEG, and now GJ tube. Was cleared to takesmall amounts of ice chips yesterday, pt seen, however had emesis episode w/ ice chips at that time. RN states pt NPO for potential surgery again today, DHT to be replaced for medication passes in mean time as per RN.. SHIP [facility]NER team will continue to monitor. Briana Bryant MA [facility] Inpatient Rehabilitation Medicine pager:# [phone] * Chau Keith MD - 09/11/2022 6:15 AM EDT Images from the original note were not included. Inpatient Hospital Medicine Progress Note 09/11/2022 Patient Name: ISHAN IRVING Date of : 1960 Age: 62 y.o. Hospital Admit Date: 08/14/2022 Hospital Day: 28 Inpatient Attending: Molina Flores MD PCP: Chris Stanley APRN ([phone]) ID: Ishan Irving is a 62 y.o. 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.5 years) c/b chronic pancreatitis, iron deficiency anemia, ??GERD??c/b??esophagitis &??Farrell's esophagus, who was admitted to [facility] on 08/14/2022 (now on Hospital Day #28) [...] fellows interpretation Confirmed by fellow Niurka Rose ([id number]) on 09/07/2022 8:45:34 AM Confirmed by MD [...] Date/Time Lower Respiratory Culture Bronchial Alveolar Lavage [[id number]] Collected: 08/21/22 1650 Lab Status: Final result Specimen: Bronchial Alveolar Lavage Updated: 08/23/22 0741 Lower Respiratory Culture Rare mixed bacterial morphotypes suggestive of normal upper respiratory wiley Gram Stain -- Few Neutrophils seen No squamous epithelial cells seen No microorganisms seen. Fungus Culture & Calc Stain Bronchial Alveolar Lavage [[id number]] (Abnormal) Collected: 08/21/22 1650 Lab Status: Preliminary result Specimen: Bronchial Alveolar Lavage Updated: 08/24/22 1452 AFB culture Bronchial Alveolar Lavage [[id number]] Collected: 08/21/221649 Lab Status: Preliminary result Specimen: Bronchial Alveolar Lavage Updated: 08/24/22 2219 Acid Fast Bacilli Culture -- No Acid Fast Bacilli isolated to date If active tuberculosis is suspected, the patient should be on [employer] PRECAUTIONS. Call Infection Prevention for assistance if needed. Acid Fast Stain No Acid Fast Bacilli seen Fungus culture [[id number]] (Abnormal) Collected: 08/21/221649 Lab Status: Preliminary result Specimen: Bronchial Alveolar Lavage Updated: 08/24/22 1452 Fungus Culture Rare Jacky albicans Calcofluor White Stain [[id number]] Collected: 08/21/221649 Lab Status: Final result Specimen: Bronchial Alveolar Lavage Updated: 08/21/222015 Calcofluor Stain Calcofluor White Preparation: Negative Lower Respiratory Culture Bronchial Alveolar Lavage [[id number]] Collected: 08/21/221644 Lab Status: Final result Specimen: Bronchial Alveolar Lavage Updated: 08/23/22 0741 Lower Respiratory Culture Rare mixed bacterial morphotypes suggestive of normal upper respiratory wiley Gram Stain -- Moderate Neutrophils seen No squamous epithelial cells seen No microorganisms seen. Fungus Culture & Calc Stain Bronchial Alveolar Lavage [[id number]] (Abnormal) Collected: 08/21/221644 Lab Status: Preliminary result Specimen: Bronchial Alveolar Lavage Updated: 08/24/22 1453 AFB culture Bronchial Alveolar Lavage [[id number]] Collected: 08/21/221644 Lab Status: Preliminary result Specimen: Bronchial Alveolar Lavage Updated: 08/24/22 2221 Acid Fast Bacilli Culture -- No Acid Fast Bacilli isolated to date If active tuberculosis is suspected, the patient should be on AIRBORNE PRECAUTIONS. Call Infection Prevention for assistance if needed. Acid Fast Stain No Acid Fast Bacilli seen Fungus culture [[id number]] (Abnormal) Collected: 08/21/221644 Lab Status: Preliminary result Specimen: Bronchial Alveolar Lavage Updated: 08/24/22 1453 Fungus Culture Rare Jacky albicans Calcofluor White Stain [[id number]] Collected: 08/21/221644 Lab Status: Final result Specimen: Bronchial Alveolar Lavage Updated: 08/21/222016 Calcofluor Stain Calcofluor White Preparation: Negative Blood culture [[id number]] Collected: 08/19/22 1720 Lab Status: Final result Specimen: Blood Updated: 08/24/22 2301 Blood Culture No growth at 5 days. Lower Respiratory Culture Sputum Induced [[id number]] Collected: 08/19/22 1451 Lab Status: Final result Specimen: Sputum Induced Updated: 08/21/22 0948 Lower Respiratory Culture Rare mixed bacterial morphotypes suggestive of normal upper respiratory wiley Gram Stain -- Many Neutrophils seen Few squamous epithelial cells seen No microorganisms seen. Blood culture [[id number]] Collected: 08/19/22 1330 Lab Status: Final result Specimen: Blood Updated: 08/24/22 1501 Blood Culture No growth at 5 days. Legionella Urinary Antigen [[id number]] Collected: 08/18/22 1013 Lab Status: Final result [...] Catheter Urine; Other; sepsis, bacteria on UA [[id number]] Collected: 08/15/22 1225 Lab Status: Final result Specimen: Indwelling Catheter Urine Updated: 08/16/22 0804 Urine Culture 1,000-9,000 cfu/ml Insignificant growth COVID-19 PCR [[id number]] Collected: 08/15/22 1150 Lab Status: Final result [...] using the Simplexa COVID-19 Direct Assay by [employer] as authorized by the FDA issued Emergency [...] Department of Pathology and Laboratory Medicine at [facility], certified under the Clinical Laboratory Improvement Amendments [...] fact sheets at the following FDA website: https://www.fda.gov/medical-devices/ktvftucmttk-lijvtdl-9726-ogkdg-86-jgxbxyomz- xtm-xfcsobfnrbeavz-zzfyinq-devices/hetuo-dxoeuxqxmjj-rwpl SARS-CoV-2 Source INNER DIAMETER GRINDER TOOL Swab Lower Respiratory Culture Sputum Induced [[id number]] Collected: 08/15/22 0740 Lab Status: Final result Specimen: Sputum Induced Updated: 08/17/22 1015 Lower Respiratory Culture Rare normal upper respiratory wiley Gram Stain -- Many Neutrophils Few squamous epithelial cells Rare mixed bacterial morphotypes suggestive of normal upper respiratory wiley Blood culture [[id number]] Collected: 08/15/22 0110 Lab Status: Final result Specimen: Blood Updated: 08/20/22 0701 Blood Culture No growth at 5 days. MRSA PCR Screen ([facility]/CGP/APD/NLH) [[id number]] Collected: 08/15/22 0050 Lab Status: Final result Specimen: Nasopharyngeal Swab Updated: 08/17/22 1419 MRSA Result Negative MRSA Interp -- Methicillin-resistant Staphylococcus aureus (MRSA) is NOT DETECTED The MRSA target DNA sequences (mec and SCC) were not detected within the acceptable ranges using the Xpert MRSA NxG on the GeneXpert Dx System (Page Mage). This suggests the absence of MRSA in the patient specimen submitted for testing. This test is cleared by the U.S. Food and Drug Administration for clinical use and its performance characteristics have been verified by the [facility] at [facility]. This result does not rule out the presence of any other organisms. Rare false negative results may occur if MRSA is present at low concentrations with much higher concentrations of other organisms including MRSE or S. aureus with an empty SCC cassette. Comment: [VERIFIED DATE]08.17.22 Verified By:Shannon Smiley (Electronic Signature) Blood culture [[id number]] Collected: 08/14/22 2192 Lab Status: Final result Specimen: Blood Updated: [...] who have questions please contact the health pediatric acute care unit nurse that requested your imaging first. Abdomen 1 [...] who have questions please contact the health pediatric acute care unit nurse that requested your imaging first. Electronically signed by: Liliane Adams MD, [facility] ([phone]), at 08/15/2022 9:05 AM XR Chest One [...] who have questions please contact the health pediatric acute care unit nurse that requested your imaging first. Abdomen 1 [...] who have questions please contact the health pediatric acute care unit nurse that requested your imaging first. Chest One [...] who have questions please contact the health pediatric acute care unit nurse that requested your imaging first. Electronically signed by: Alfonso Adams MD, [facility] ([phone]), at 08/16/2022 10:[address] Head wo [...] who have questions please contact the health pediatric acute care unit nurse that requested your imaging first. Electronically signed by: Moustapha Correa MD, [facility] ([phone]), at 08/16/2022 11:19 PM XR Abdomen 1 [...] who have questions please contact the health pediatric acute care unit nurse that requested your imaging first. Head wo Contrast (Generic) (Exam End: 08/18/2022 3:14 PM) Impression No acute intracranial process. Thank you for letting us participate in the care of this patient. If you are a health care provider and have any questions regarding this report, please contact the number below. For patients who have questions please contact the health pediatric acute care unit nurse that requested your imaging first. Electronically signed by: Antonio Jordan MD, [facility] ([phone]), at 08/18/2022 3:18 PM XR Chest One [...] who have questions please contact the health pediatric acute care unit nurse that requested your imaging first. Electronically signed by: Alan De Guzman MD, [facility] ([phone]), at 08/19/2022 3:14 PM MRI Brain wo Contrast (Exam End: 08/19/2022 10:15 PM) Impression No acute infarction, mass or mass effect. Thank you for letting us participate in the care of this patient. If you are a health care provider and have any questions regarding this report, please contact the number below. For patients who have questions please contact the health pediatric acute care unit nurse that requested your imaging first. Electronically signed by: Jagdeep Lee MD, [facility] ([phone]), at 08/20/2022 3:34 AM XR Chest for Verifying Vascular Access PICC [...] who have questions please contact the health pediatric acute care unit nurse that requested your imaging first. Electronically signed by: Alan De Guzman MD, [facility] ([phone]), at 08/19/2022 4:[address] Hip w [...] who have questions please contact the health pediatric acute care unit nurse that requested your imaging first. Electronically signed by: Aicha Chowdhury MD, [facility] ([phone]), at 08/21/2022 9:[address] Chest w [...] who have questions please contact the health pediatric acute care unit nurse that requested your imaging first. Electronically signed by: Jagdeep Lee MD, [facility] ([phone]), at 08/21/2022 6:56 AM XR Hip 2-3 Views Left (Exam End: 08/22/2022 12:19 AM) Impression No radiographic evidence of infection. Thank you for letting us participate in the care of this patient. If you are a health care provider and have any questions regarding this report, please contact the number below. For patients who have questions please contact the health pediatric acute care unit nurse that requested your imaging first. Electronically signed by: Viktor Cervantes MD, [facility] ([phone]), at 08/22/2022 12:43 PM XR Pelvis (Generic) (Exam End: 08/22/2022 12:19 AM) Impression No radiographic evidence of infection status post left hip ORIF. Thank you for letting us participate in the care of this patient. If you are a health care provider and have any questions regarding this report, please contact the number below. For patients who have questions please contact the health pediatric acute care unit nurse that requested your imaging first. Electronically signed by: Richard Billings MD, [facility] ([phone]), at 08/22/2022 10:[address] Angiogram Coronary [...] who have questions please contact the health pediatric acute care unit nurse that requested your imaging first. Electronically signed by: Arlette Mays MD, [facility] ([phone]), at 08/27/2022 11:[address] Chest wo Contrast (Generic) (Exam End: 08/27/2022 8:58 AM) Impression Stable findings of multifocal pneumonia. No interval abnormality. Thank you for letting us participate in the care of this patient. If you are a health care provider and have any questions regarding this report, please contact the number below. For patients who have questions please contact the health pediatric acute care unit nurse that requested your imaging first. Electronically signed by: MINH QUIROGA MD, [facility] ([phone]), at 08/27/2022 10:48 AM XR Fluoro Barium [...] who have questions please contact the health pediatric acute care unit nurse that requested your imaging first. Electronically signed by: Aron Billings MD, [facility] ([phone]), at 08/31/2022 12:02 PM XR Fluoro Barium [...] who have questions please contact the health pediatric acute care unit nurse that requested your imaging first. Electronically signed by: Alfonso Adams MD, [facility] ([phone]), at 09/04/2022 10:57 AM XR Abdomen 1 [...] who have questions please contact the health pediatric acute care unit nurse that requested your imaging first. Electronically signed by: Jagdeep Lee MD, [facility] ([phone]), at 09/04/2022 10:35 PM XR Chest One View (Exam End: 09/04/2022 9:47 [...] who have questions please contact the health pediatric acute care unit nurse that requested your imaging first. Electronically signed by: Jagdeep Lee MD, [facility] ([phone]), at 09/04/2022 10:35 PM XR Chest One View (Exam End: 09/05/2022 9:24 AM) Impression 1. Reposition enteric tube now extending below the diaphragm and included rulbq-qj-byic. 2. Similar appearance of elevated right hemidiaphragm and linear/patchy bibasilar opacities which may represent atelectasis or possibly aspiration. Thank you for letting us participate in the care of this patient. If you are a health care provider and have any questions regarding this report, please contact the number below. For patients who have questions please contact the health pediatric acute care unit nurse that requested your imaging first. Electronically signed by: AUDI PERDOMO MD, [facility] ([phone]), at 09/05/2022 3:43 PM XR Abdomen 1 [...] who have questions please contact the health pediatric acute care unit nurse that requested your imaging first. Electronically signed by: Camille Garcia MD, [facility] ([phone]), at 09/10/2022 1:16 AM Medications: Scheduled: ??? [...] ??? insulin lispro 1-10 Units Subcutaneous Q4H JARED ??? miconazole nitrate Topical (Top) BID ??? [...] RD??c/b??esophagitis &??Farrell's esophagus, who was admitted to [facility] on 08/14/2022 (now on Hospital Day #23) [...] that she should continue to work with PT/OT/SHIP RUNNER/nursing but that the most recent assessments still [...] discharge - C/w valproate 300mg q6h - SHIP RUNNER following, NPO at present - Psychiatry Consult, [...] Medicine PGY1 Medicine Team: Jose Juan, Pager #[phone] Date: 09/11/2022 Associated attestation - Molina Flores [...] of two midnights or is on the [facility] inpatient only procedure list (status C) [...] coordination with the ICU nurses. * Duncan Almaguer RN - 09/10/2022 6:06 PM EDT OUTCOME EVALUATION [...] CARE PLAN GOAL OUTCOME EVALUATION: * Briana Bryant SHIP [facility]NER - 09/10/2022 12:44 PM EDT Speech Therapy Note Patient Profile:??Ishan Irving is a 62 year old female with a medical history notable for??recent L femoral neck fracture,??bipolar disorder, resolving medication-induced Parkinsonism, insulin-dependent diabetes mellitus,??hx of alcohol use disorder (reported to be in remission for 1.5 years)c/b chronic pancreatitis, iron deficiency anemia,??GERD??c/b??esophagitis &??Farrell's esophagus??presenting in transfer from [facility]??on 08/14/2022, suspected to be in cardiogenic shock and found to be in mixed shock with concern for stress cardiomyopathy.??SHIP RUNNER following for swallow, cognitive tx. MBS completed [...] x1 of 8 ice chip trials w/ SHIP RUNNER; refer to Gastroenterology note for further information. Education: Pt educated on results and recommendations, discussed with nursing. Assessment: Pt was seen today for a follow-up SHIP RUNNER visit. Pt w/ ongoing moderate- severe dysphagia [...] assist from??staff as needed Plan: Therapy Frequency (SHIP RUNNER Eval): 2-4 times/wk Pt./family are in agreement with treatment plan. Total Minutes (Speech Language Pathology): 12 Thank you for this consult with this patient. Please feel free to message me with any questions or concerns. aSri Juarez. Stock Lifter Clinician Speech-Language Pathology Patient status, treatment interventions, and goals discussed with student. I am in agreement with note as documented and was present for all aspects of the patient treatment session. Briana Bryant MA, [facility]-SHIP RUNNER Pager: [phone] Speech-Language Pathology Inpatient Rehabilitation Medicine * Marybeth Shelley RN - 09/10/2022 11:29 AM EDTSummary: [facility] Medicaid Referral Identification of Visitor Services Representative Care Medicaid insurance coverage IS required to facilitate this hospital discharge and was determined due to the following circumstances: Patient is in need of rehab at discharge prior to returning home with . Current insurance plan is [place] Medicaid Primary Care Plus, this plan does not have rehab coverage. Confirmed with spouse that they DO NOT have [employer] [place] Medicaid coverage for [place] residents or [employer] [place] Medicaid coverage for [place] residents and that an application for these specific [place] Medicaid programs HAVE NOT been submitted to their State of Residence to date for enrollment. Conversation with patient and/or patient advocate regarding the need for Visitor Services Representative Care Medicaid insurance coverage was conducted on 09/10/2022 and a referral has been made to the Care Management Materials Engineer for [place] Medicaid insurance assistance and/or enrollment on 09/10/2022. Marybeth Shelley RN, BSN Metal Grinder - Medicine Office of Care Management Office: Pager: [phone] * Minh Cantu MD - 09/10/2022 11:00 [...] RD??c/b??esophagitis &??Farrell's esophagus, who was admitted to [facility] on 08/14/2022 (now on Hospital Day #21), [...] Note Treatment Number PT: 10 Patient profile: Ishan Irving is a 62 y.o. female admitted on 08/14/2022 with a medical history notable for??recent L femoral neck fracture,??bipolar disorder, resolving medication-induced Parkinsonism, insulin-dependent diabetes mellitus,??hx of alcohol use disorder (reported to be in remission for 1.5 years) c/b chronic pancreatitis, iron deficiency anemia,??GERD??c/b??esophagitis &??Farrell's esophagus??presenting in transfer from [facility], suspected to be in cardiogenic shock and found to be in mixed shock with concern for stress cardiomyopathy. She is s/p ORIF left femoral neck fracture ~ 4/ at OSH. Interval History: Transferred to [facility], attempted PEG placement 5/, unsuccessful d/t esophageal stricture. Plan for IR [...] the current findings, Anticipated Discharge Disposition (PT): [facility] facility when medically ready for hospital discharge. [...] plan as stated. Time IN / OUT: 3302-2109 Total Minutes, Physical Therapy: 42 Billing Code: TA x3 Trell Sanford PT, DPT Pager: [phone] Physical Therapy Inpatient Rehabilitation Department * Lucia [...] Last revised on 03/10/22 #3, per recent SHIP RUNNER note on 09/04 - Addendum: SHIP RUNNER returned to pt's room at 1230 to [...] and agreement with thetreatment plan and informed SHIP RUNNER of her continued goal to resume consuming [...] Molina Flores MD PCP: Chris Stanley APRN ([phone]) ID: Ishan Irving is a 62 y.o. 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.5 years) c/b chronic pancreatitis, iron deficiency anemia, ??GERD??c/b??esophagitis &??Farrell's esophagus, who was admitted to [facility] on 08/14/2022 (now on Hospital Day #27) [...] dry, no rashes LABS: CBC: Recent Labs 09/09/22 0400 09/08/220 09/07/220 09/06/22 0100 09/05/22 0106 WBC 6.9 6.9 6.2 6.3 4.9 HGB 9.8* 9.8* 9.1* 8.6* 8.7* HCT 33.4* 32.6* 30.5* 29.0* 29.0* PLATELET 264 300 286 297 314 NEUTROABS 3.43 3.42 2.71 2.64 1.88 Chemistry: Recent Labs 09/09/22 0400 09/08/22 0200 09/07/22 0030 09/06/22 0100 09/05/22 0106 NA 140 142 [...] fellows interpretation Confirmed by fellow Niurka Rose ([id number]) on 09/07/2022 8:45:34 AM Confirmed by MD [...] Date/Time Lower Respiratory Culture Bronchial Alveolar Lavage [[id number]] Collected: 08/21/22 1650 Lab Status: Final result Specimen: Bronchial Alveolar Lavage Updated: 08/23/22 0741 Lower Respiratory Culture Rare mixed bacterial morphotypes suggestive of normal upper respiratory wiley Gram Stain -- Few Neutrophils seen No squamous epithelial cells seen No microorganisms seen. Fungus Culture & Calc Stain Bronchial Alveolar Lavage [[id number]] (Abnormal) Collected: 08/21/221649 Lab Status: Preliminary result Specimen: Bronchial Alveolar Lavage Updated: 08/24/22 1452 AFB culture Bronchial Alveolar Lavage [[id number]] Collected: 08/21/221649 Lab Status: Preliminary result Specimen: Bronchial Alveolar Lavage Updated: 08/24/22 2219 Acid Fast Bacilli Culture -- No Acid Fast Bacilli isolated to date If active tuberculosis is suspected, the patient should be on AIRBORNE PRECAUTIONS. Call Infection Prevention for assistance if needed. Acid Fast Stain No Acid Fast Bacilli seen Fungus culture [[id number]] (Abnormal) Collected: 08/21/221649 Lab Status: Preliminary result Specimen: Bronchial Alveolar Lavage Updated: 08/24/22 145 Fungus Culture Rare Jacky albicans Calcofluor White Stain [[id number]] Collected: 08/21/221649 Lab Status: Final result Specimen: Bronchial Alveolar Lavage Updated: 08/21/222015 Calcofluor Stain Calcofluor White Preparation: Negative Lower Respiratory Culture Bronchial Alveolar Lavage [[id number]] Collected: 08/21/221644 Lab Status: Final result Specimen: Bronchial Alveolar Lavage Updated: 08/23/22 0741 Lower Respiratory Culture Rare mixed bacterial morphotypes suggestive of normal upper respiratory wiley Gram Stain -- Moderate Neutrophils seen No squamous epithelial cells seen No microorganisms seen. Fungus Culture & Calc Stain Bronchial Alveolar Lavage [[id number]] (Abnormal) Collected: 08/21/221644 Lab Status: Preliminary result Specimen: Bronchial Alveolar Lavage Updated: 08/24/22 1453 AFB culture Bronchial Alveolar Lavage [[id number]] Collected: 08/21/221644 Lab Status: Preliminary result Specimen: Bronchial Alveolar Lavage Updated: 08/24/22 2221 Acid Fast Bacilli Culture -- No Acid Fast Bacilli isolated to date If active tuberculosis is suspected, the patient should be on AIRBORNE PRECAUTIONS. Call Infection Prevention for assistance if needed. Acid Fast Stain No Acid Fast Bacilli seen Fungus culture [[id number]] (Abnormal) Collected: 08/21/221644 Lab Status: Preliminary result Specimen: Bronchial Alveolar Lavage Updated: 08/24/22 1453 Fungus Culture Rare Jacky albicans Calcofluor White Stain [[id number]] Collected: 08/21/22 1645 Lab Status: Final result Specimen: Bronchial Alveolar Lavage Updated: 08/21/22 2017 Calcofluor Stain Calcofluor White Preparation: Negative Blood culture [[id number]] Collected: 08/19/22 1720 Lab Status: Final result Specimen: Blood Updated: 08/24/22 2301 Blood Culture No growth at 5 days. Lower Respiratory Culture Sputum Induced [[id number]] Collected: 08/19/22 1451 Lab Status: Final result Specimen: Sputum Induced Updated: 08/21/22 0948 Lower Respiratory Culture Rare mixed bacterial morphotypes suggestive of normal upper respiratory wiley Gram Stain -- Many Neutrophils seen Few squamous epithelial cells seen No microorganisms seen. Blood culture [[id number]] Collected: 08/19/22 1330 Lab Status: Final result Specimen: Blood Updated: 08/24/22 1501 Blood Culture No growth at 5 days. Legionella Urinary Antigen [[id number]] Collected: 08/18/22 1013 Lab Status: Final result [...] Catheter Urine; Other; sepsis, bacteria on UA [[id number]] Collected: 08/15/22 1225 Lab Status: Final result Specimen: Indwelling Catheter Urine Updated: 08/16/22 0804 Urine Culture 1,000-9,000 cfu/ml Insignificant growth COVID-19 PCR [[id number]] Collected: 08/15/22 1150 Lab Status: Final result [...] using the Simplexa COVID-19 Direct Assay by [employer] as authorized by the FDA issued Emergency [...] Department of Pathology and Laboratory Medicine at [facility], certified under the Clinical Laboratory Improvement Amendments [...] fact sheets at the following FDA website: https://www.fda.gov/medical-devices/hwkzfkceaeh-tnrjdgs-2521-cznlw-62-ocrgdnaip- bdg-kbojallihavjqn-nmoqwgx-devices/jhbuq-wgcvoshrqty-cfiz SARS-CoV-2 Source INNER DIAMETER GRINDER TOOL Swab Lower Respiratory Culture Sputum Induced [[id number]] Collected: 08/15/22 0740 Lab Status: Final result Specimen: Sputum Induced Updated: 08/17/22 1015 Lower Respiratory Culture Rare normal upper respiratory wiley Gram Stain -- Many Neutrophils Few squamous epithelial cells Rare mixed bacterial morphotypes suggestive of normal upper respiratory wiley Blood culture [[id number]] Collected: 08/15/22 0110 Lab Status: Final result Specimen: Blood Updated: 08/20/22 0701 Blood Culture No growth at 5 days. MRSA PCR Screen ([facility]/CGP/APD/NLH) [[id number]] Collected: 08/15/22 0050 Lab Status: Final result Specimen: Nasopharyngeal Swab Updated: 08/17/22 1419 MRSA Result Negative MRSA Interp -- Methicillin-resistant Staphylococcus aureus (MRSA) is NOT DETECTED The MRSA target DNA sequences (mec and SCC) were not detected within the acceptable ranges using the Xpert MRSA NxG on the GeneXpert Dx System (Page Mage). This suggests the absence of MRSA in the patient specimen submitted for testing. This test is cleared by the U.S. Food and Drug Administration for clinical use and its performance characteristics have been verified by the [facility] at [facility]. This result does not rule out the presence of any other organisms. Rare false negative results may occur if MRSA is present at low concentrations with much higher concentrations of other organisms including MRSE or S. aureus with an empty SCC cassette. Comment: [VERIFIED DATE]08.17.22 Verified By:Shannon Smiley (Electronic Signature) Blood culture [[id number]] Collected: 08/14/22 2355 Lab Status: Final result [...] who have questions please contact the health pediatric acute care unit nurse that requested your imaging first. Abdomen 1 [...] who have questions please contact the health pediatric acute care unit nurse that requested your imaging first. Electronically signed by: Liliane Adams MD, [facility] ([phone]), at 08/15/2022 9:05 AM XR Chest One [...] who have questions please contact the health pediatric acute care unit nurse that requested your imaging first. Abdomen 1 [...] who have questions please contact the health pediatric acute care unit nurse that requested your imaging first. Chest One [...] who have questions please contact the health pediatric acute care unit nurse that requested your imaging first. Electronically signed by: Alfonso Adams MD, [facility] ([phone]), at 08/16/2022 10:[address] Head wo [...] who have questions please contact the health pediatric acute care unit nurse that requested your imaging first. Electronically signed by: Moustapha Correa MD, [facility] ([phone]), at 08/16/2022 11:19 PM XR Abdomen 1 [...] who have questions please contact the health pediatric acute care unit nurse that requested your imaging first. Head wo Contrast (Generic) (Exam End: 08/18/2022 3:14 PM) Impression No acute intracranial process. Thank you for letting us participate in the care of this patient. If you are a health care provider and have any questions regarding this report, please contact the number below. For patients who have questions please contact the health pediatric acute care unit nurse that requested your imaging first. Electronically signed by: Antonio Jordan MD, [facility] ([phone]), at 08/18/2022 3:18 PM XR Chest One [...] who have questions please contact the health pediatric acute care unit nurse that requested your imaging first. Electronically signed by: Alan De Guzman MD, [facility] ([phone]), at 08/19/2022 3:14 PM MRI Brain wo Contrast (Exam End: 08/19/2022 10:15 PM) Impression No acute infarction, mass or mass effect. Thank you for letting us participate in the care of this patient. If you are a health care provider and have any questions regarding this report, please contact the number below. For patients who have questions please contact the health pediatric acute care unit nurse that requested your imaging first. Electronically signed by: Jagdeep Lee MD, [facility] ([phone]), at 08/20/2022 3:34 AM XR Chest for Verifying Vascular Access PICC [...] who have questions please contact the health pediatric acute care unit nurse that requested your imaging first. Electronically signed by: Alan De Guzman MD, [facility] ([phone]), at 08/19/2022 4:[address] Hip w [...] who have questions please contact the health pediatric acute care unit nurse that requested your imaging first. Electronically signed by: Aicha Chowdhury MD, [facility] ([phone]), at 08/21/2022 9:[address] Chest w [...] who have questions please contact the health pediatric acute care unit nurse that requested your imaging first. Electronically signed by: Jagdeep Lee MD, [facility] ([phone]), at 08/21/2022 6:56 AM XR Hip 2-3 Views Left (Exam End: 08/22/2022 12:19 AM) Impression No radiographic evidence of infection. Thank you for letting us participate in the care of this patient. If you are a health care provider and have any questions regarding this report, please contact the number below. For patients who have questions please contact the health pediatric acute care unit nurse that requested your imaging first. Electronically signed by: Viktor Cervantes MD, [facility] ([phone]), at 08/22/2022 12:43 PM XR Pelvis (Generic) (Exam End: 08/22/2022 12:19 AM) Impression No radiographic evidence of infection status post left hip ORIF. Thank you for letting us participate in the care of this patient. If you are a health care provider and have any questions regarding this report, please contact the number below. For patients who have questions please contact the health pediatric acute care unit nurse that requested your imaging first. Electronically signed by: Richard Billings MD, [facility] ([phone]), at 08/22/2022 10:[address] Angiogram Coronary [...] who have questions please contact the health pediatric acute care unit nurse that requested your imaging first. Electronically signed by: Arlette Mays MD, [facility] ([phone]), at 08/27/2022 11:[address] Chest wo Contrast (Generic) (Exam End: 08/27/2022 8:58 AM) Impression Stable findings of multifocal pneumonia. No interval abnormality. Thank you for letting us participate in the care of this patient. If you are a health care provider and have any questions regarding this report, please contact the number below. For patients who have questions please contact the health pediatric acute care unit nurse that requested your imaging first. Electronically signed by: MINH QUIROGA MD, [facility] ([phone]), at 08/27/2022 10:48 AM XR Fluoro Barium [...] who have questions please contact the health pediatric acute care unit nurse that requested your imaging first. Electronically signed by: Aron Billings MD, [facility] ([phone]), at 08/31/2022 12:02 PM XR Fluoro Barium [...] who have questions please contact the health pediatric acute care unit nurse that requested your imaging first. Electronically signed by: Alfonso Adams MD, [facility] ([phone]), at 09/04/2022 10:57 AM XR Abdomen 1 [...] who have questions please contact the health pediatric acute care unit nurse that requested your imaging first. Electronically signed by: Jagdeep Lee MD, [facility] ([phone]), at 09/04/2022 10:35 PM XR Chest One View (Exam End: 09/04/2022 9:47 [...] who have questions please contact the health pediatric acute care unit nurse that requested your imaging first. Electronically signed by: Jagdeep Lee MD, [facility] ([phone]), at 09/04/2022 10:35 PM XR Chest One View (Exam End: 09/05/2022 9:24 AM) Impression 1. Reposition enteric tube now extending below the diaphragm and included [id number]. 2. Similar appearance of elevated right hemidiaphragm and linear/patchy bibasilar opacities which may represent atelectasis or possibly aspiration. Thank you for letting us participate in the care of this patient. If you are a health care provider and have any questions regarding this report, please contact the number below. For patients who have questions please contact the health pediatric acute care unit nurse that requested your imaging first. Electronically signed by: AUDI PERDOMO MD, [facility] ([phone]), at 09/05/2022 3:43 PM XR Abdomen 1 [...] who have questions please contact the health pediatric acute care unit nurse that requested your imaging first. Electronically signed by: Camille Garcia MD, [facility] ([phone]), at 09/10/2022 1:16 AM Medications: Scheduled: ??? [...] ??? insulin lispro 1-10 Units Subcutaneous Q4H JARED ??? miconazole nitrate Topical (Top) BID ??? [...] RD??c/b??esophagitis &??Farrell's esophagus, who was admitted to [facility] on 08/14/2022 (now on Hospital Day #23) [...] them that she shouldcontinue to work with PT/OT/SHIP RUNNER/nursing but that the most recent assessments still [...] discharge - C/w valproate 300mg q6h - SHIP RUNNER following, NPO at present - Psychiatry Consult, [...] Medicine PGY1 Medicine Team: Jose Juan, Pager #[phone] Date: 09/10/2022 Associated attestation - Molina Flores [...] of two midnights or is on the [facility] inpatient only procedure list (status C) [...] for KUB 0105- KUB done * Wilda Blankenship, RD - 09/09/2022 1:09 PM EDT Nutrition Progress Note Ishan Irving is a 62 y.o.??female??with h/o bipolar, DM, EtOH, esophagitis, who presented to [facility] 3 days ago after being found unresponsive at home.?Patient found to have likely pneumonia +/- aspiration, newly reduced EF. Reason for Assessment: Tube Feeding, Follow-up Nutrition Recommendations: S/p PEG placement, resume current TF: Cyclic Peptamen AF at 90ml/hr for 14 hrs from [id number] (pended). At goal, this will provide: Peptamen AF Total Volume Per Day: 1260 mL Scoops of Protein: 0 Calories per Day: 1512 Protein per Day: 96 g Free Water mL per Day: 1023 % RDI: 101 % Monitor hydration status on above TFs as they are concentrated. Pt may need additional fluids depending on IVFs, med flushes, p.o. Intake, etc. Po diet per SHIP RUNNER (recs 09/04 NPO s/p MBS) Continue 50,000 [...] Peptamen AF at 110ml/hr for 12hrs from [id number] (see updated order above as of 09/07). [...] 5 PICC Line - Double Lumen 08/19/22 1655 [...] encounter: 64.5 kg (142 lb 1.6 oz). [place] Body Weight (IBW) (kg): 45.45 Usual Body [...] 08/25 r/t liquid tylenol, d/c per this verse writer's request as liquid tylenol acts as [...] while inpatient THANKS Wilda Blankenship RD Pager #:[phone] * Alicia Cook, OT - 09/09/2022 9:30 AM EDT Occupational [...] &??Farrell's esophagus??presenting in transfer from [facility], suspected to be in cardiogenic shock and [...] soft BP, added mivf ?? Today AM: / - Continues to report mild nausea without [...] Total Minutes, Occupational Therapy: 37 (2 TA, 2388-2072) Pager: [phone] Alicia Cook OT 09/09/2022 Occupational Therapy Rehabilitation Department * Gt Pyle RN - 09/09/2022 8:00 AM EDT OUTCOME [...] RD??c/b??esophagitis &??Farrell's esophagus, who was admitted to [facility] on 08/14/2022 (now on Hospital Day #21), [...] it appears her dysphagia will be chronic. SATISH. Recommendations: - planned for PEG today. Consult [...] Molina Flores MD PCP: Chris Stanley APRN ([phone]) ID: Ishan Irving is a 62 y.o. 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..] fellows interpretation Confirmed by fellow Niurka Rose ([id number]) on 09/07/2022 8:45:34 AM Confirmed by MD [...] Date/Time Lower Respiratory Culture Bronchial Alveolar Lavage [[id number]] Collected: 08/21/22 1650 Lab Status: Final result Specimen: Bronchial Alveolar Lavage Updated: 08/23/22 0741 Lower Respiratory Culture Rare mixed bacterial morphotypes suggestive of normal upper respiratory wiley Gram Stain -- Few Neutrophils seen No squamous epithelial cells seen No microorganisms seen. Fungus Culture & Calc Stain Bronchial Alveolar Lavage [[id number]] (Abnormal) Collected: 08/21/221649 Lab Status: Preliminary result Specimen: Bronchial Alveolar Lavage Updated: 08/24/22 1452 AFB culture Bronchial Alveolar Lavage [[id number]] Collected: 08/21/221649 Lab Status: Preliminary result Specimen: Bronchial Alveolar Lavage Updated: 08/24/22 2219 Acid Fast Bacilli Culture -- No Acid Fast Bacilli isolated to date If active tuberculosis is suspected, the patient should be on AIRBORNE PRECAUTIONS. Call Infection Prevention for assistance if needed. Acid Fast Stain No Acid Fast Bacilli seen Fungus culture [[id number]] (Abnormal) Collected: 08/21/221649 Lab Status: Preliminary result Specimen: Bronchial Alveolar Lavage Updated: 08/24/22 145 Fungus Culture Rare Jacky albicans Calcofluor White Stain [[id number]] Collected: 08/21/221649 Lab Status: Final result Specimen: Bronchial Alveolar Lavage Updated: 08/21/222015 Calcofluor Stain Calcofluor White Preparation: Negative Lower Respiratory Culture Bronchial Alveolar Lavage [[id number]] Collected: 08/21/221644 Lab Status: Final result Specimen: Bronchial Alveolar Lavage Updated: 08/23/22 0741 Lower Respiratory Culture Rare mixed bacterial morphotypes suggestive of normal upper respiratory wiley Gram Stain -- Moderate Neutrophils seen No squamous epithelial cells seen No microorganisms seen. Fungus Culture & Calc Stain Bronchial Alveolar Lavage [[id number]] (Abnormal) Collected: 08/21/221644 Lab Status: Preliminary result Specimen: Bronchial Alveolar Lavage Updated: 08/24/22 1453 AFB culture Bronchial Alveolar Lavage [[id number]] Collected: 08/21/221644 Lab Status: Preliminary result Specimen: Bronchial Alveolar Lavage Updated: 08/24/22 2221 Acid Fast Bacilli Culture -- No Acid Fast Bacilli isolated to date If active tuberculosis is suspected, the patient should be on AIRBORNE PRECAUTIONS. Call Infection Prevention for assistance if needed. Acid Fast Stain No Acid Fast Bacilli seen Fungus culture [[id number]] (Abnormal) Collected: 08/21/221644 Lab Status: Preliminary result Specimen: Bronchial Alveolar Lavage Updated: 08/24/22 145 Fungus Culture Rare Jacky albicans Calcofluor White Stain [[id number]] Collected: 08/21/22 1645 Lab Status: Final result Specimen: Bronchial Alveolar Lavage Updated: 08/21/22 2017 Calcofluor Stain Calcofluor White Preparation: Negative Blood culture [[id number]] Collected: 08/19/22 1720 Lab Status: Final result Specimen: Blood Updated: 08/24/22 2301 Blood Culture No growth at 5 days. Lower Respiratory Culture Sputum Induced [[id number]] Collected: 08/19/22 1451 Lab Status: Final result Specimen: Sputum Induced Updated: 08/21/22 0948 Lower Respiratory Culture Rare mixed bacterial morphotypes suggestive of normal upper respiratory wiley Gram Stain -- Many Neutrophils seen Few squamous epithelial cells seen No microorganisms seen. Blood culture [[id number]] Collected: 08/19/22 1330 Lab Status: Final result Specimen: Blood Updated: 08/24/22 1501 Blood Culture No growth at 5 days. Legionella Urinary Antigen [[id number]] Collected: 08/18/22 1013 Lab Status: Final result [...] Catheter Urine; Other; sepsis, bacteria on UA [[id number]] Collected: 08/15/22 1225 Lab Status: Final result Specimen: Indwelling Catheter Urine Updated: 08/16/22 0804 Urine Culture 1,000-9,000 cfu/ml Insignificant growth COVID-19 PCR [[id number]] Collected: 08/15/22 1150 Lab Status: Final result [...] Department of Pathology and Laboratory Medicine at [facility], certified under the Clinical Laboratory Improvement Amendments [...] fact sheets at the following FDA website: https://www.fda.gov/medical-devices/amccckspbhy-ahobmcw-1996-qcojd-99-vrteavrpn- fbg-gsxwsowonourvx-qmwykvl-devices/aclpm-pfbnzrdfrum-uugl SARS-CoV-2 Source INNER DIAMETER GRINDER TOOL Swab Lower Respiratory Culture Sputum Induced [[id number]] Collected: 08/15/22 0740 Lab Status: Final result Specimen: Sputum Induced Updated: 08/17/22 1015 Lower Respiratory Culture Rare normal upper respiratory wiley Gram Stain -- Many Neutrophils Few squamous epithelial cells Rare mixed bacterial morphotypes suggestive of normal upper respiratory wiley Blood culture [[id number]] Collected: 08/15/22 0110 Lab Status: Final result Specimen: Blood Updated: 08/20/22 0701 Blood Culture No growth at 5 days. MRSA PCR Screen ([facility]/CGP/APD/NLH) [[id number]] Collected: 08/15/22 0050 Lab Status: Final result Specimen: Nasopharyngeal Swab Updated: 08/17/22 1419 MRSA Result Negative MRSA Interp -- Methicillin-resistant Staphylococcus aureus (MRSA) is NOT DETECTED The MRSA target DNA sequences (mec and SCC) were not detected within the acceptable ranges using the Xpert MRSA NxG on the GeneXpert Dx System (Page Mage). This suggests the absence of MRSA in the patient specimen submitted for testing. This test is cleared by the U.S. Food and Drug Administration for clinical use and its performance characteristics have been verified by the [facility] at [facility]. This result does not rule out the presence of any other organisms. Rare false negative results may occur if MRSA is present at low concentrations with much higher concentrations of other organisms including MRSE or S. aureus with an empty SCC cassette. Comment: [VERIFIED DATE]08.17.22 Verified By:Shannon Smiley (Electronic Signature) Blood culture [[id number]] Collected: 08/14/22 2355 Lab Status: Final result [...] who have questions please contact the health pediatric acute care unit nurse that requested your imaging first. Abdomen 1 [...] who have questions please contact the health pediatric acute care unit nurse that requested your imaging first. Electronically signed by: Liliane Adams MD, [facility] ([phone]), at 08/15/2022 9:05 AM XR Chest One [...] who have questions please contact the health pediatric acute care unit nurse that requested your imaging first. Abdomen 1 [...] who have questions please contact the health pediatric acute care unit nurse that requested your imaging first. Chest One [...] who have questions please contact the health pediatric acute care unit nurse that requested your imaging first. Electronically signed by: Alfonso Adams MD, [facility] ([phone]), at 08/16/2022 10:[address] Head wo [...] who have questions please contact the health pediatric acute care unit nurse that requested your imaging first. Electronically signed by: Moustapha Correa MD, [facility] ([phone]), at 08/16/2022 11:19 PM XR Abdomen 1 [...] who have questions please contact the health pediatric acute care unit nurse that requested your imaging first. Head wo Contrast (Generic) (Exam End: 08/18/2022 3:14 PM) Impression No acute intracranial process. Thank you for letting us participate in the care of this patient. If you are a health care provider and have any questions regarding this report, please contact the number below. For patients who have questions please contact the health pediatric acute care unit nurse that requested your imaging first. Electronically signed by: Antonio Jordan MD, [facility] ([phone]), at 08/18/2022 3:18 PM XR Chest One [...] who have questions please contact the health pediatric acute care unit nurse that requested your imaging first. Electronically signed by: Alan De Guzman MD, [facility] ([phone]), at 08/19/2022 3:14 PM MRI Brain wo Contrast (Exam End: 08/19/2022 10:15 PM) Impression No acute infarction, mass or mass effect. Thank you for letting us participate in the care of this patient. If you are a health care provider and have any questions regarding this report, please contact the number below. For patients who have questions please contact the health pediatric acute care unit nurse that requested your imaging first. Electronically signed by: Jagdeep Lee MD, [facility] ([phone]), at 08/20/2022 3:34 AM XR Chest for Verifying Vascular Access PICC [...] who have questions please contact the health pediatric acute care unit nurse that requested your imaging first. Electronically signed by: Alan De Guzman MD, [facility] ([phone]), at 08/19/2022 4:[address] Hip w [...] who have questions please contact the health pediatric acute care unit nurse that requested your imaging first. Electronically signed by: Aicha Chowdhury MD, [facility] ([phone]), at 08/21/2022 9:[address] Chest w [...] who have questions please contact the health pediatric acute care unit nurse that requested your imaging first. Electronically signed by: Jagdeep Lee MD, [facility] ([phone]), at 08/21/2022 6:56 AM XR Hip 2-3 Views Left (Exam End: 08/22/2022 12:19 AM) Impression No radiographic evidence of infection. Thank you for letting us participate in the care of this patient. If you are a health care provider and have any questions regarding this report, please contact the number below. For patients who have questions please contact the health pediatric acute care unit nurse that requested your imaging first. Electronically signed by: Viktor Cervantes MD, [facility] ([phone]), at 08/22/2022 12:43 PM XR Pelvis (Generic) (Exam End: 08/22/2022 12:19 AM) Impression No radiographic evidence of infection status post left hip ORIF. Thank you for letting us participate in the care of this patient. If you are a health care provider and have any questions regarding this report, please contact the number below. For patients who have questions please contact the health pediatric acute care unit nurse that requested your imaging first. Electronically signed by: Richard Billings MD, [facility] ([phone]), at 08/22/2022 10:[address] Angiogram Coronary [...] who have questions please contact the health pediatric acute care unit nurse that requested your imaging first. Electronically signed by: Arlette Mays MD, [facility] ([phone]), at 08/27/2022 11:[address] Chest wo Contrast (Generic) (Exam End: 08/27/2022 8:58 AM) Impression Stable findings of multifocal pneumonia. No interval abnormality. Thank you for letting us participate in the care of this patient. If you are a health care provider and have any questions regarding this report, please contact the number below. For patients who have questions please contact the health pediatric acute care unit nurse that requested your imaging first. Electronically signed by: MINH QUIROGA MD, [facility] ([phone]), at 08/27/2022 10:48 AM XR Fluoro Barium [...] who have questions please contact the health pediatric acute care unit nurse that requested your imaging first. Electronically signed by: Aron Billings MD, [facility] ([phone]), at 08/31/2022 12:02 PM XR Fluoro Barium [...] who have questions please contact the health pediatric acute care unit nurse that requested your imaging first. Electronically signed by: Alfonso Adams MD, [facility] ([phone]), at 09/04/2022 10:57 AM XR Abdomen 1 [...] who have questions please contact the health pediatric acute care unit nurse that requested your imaging first. Electronically signed by: Jagdeep Lee MD, [facility] ([phone]), at 09/04/2022 10:35 PM XR Chest One View (Exam End: 09/04/2022 9:47 [...] who have questions please contact the health pediatric acute care unit nurse that requested your imaging first. Electronically signed by: Jagdeep Lee MD, [facility] ([phone]), at 09/04/2022 10:35 PM XR Chest One View (Exam End: 09/05/2022 9:24 AM) Impression 1. Reposition enteric tube now extending below the diaphragm and included [id number]. 2. Similar appearance of elevated right hemidiaphragm and linear/patchy bibasilar opacities which may represent atelectasis or possibly aspiration. Thank you for letting us participate in the care of this patient. If you are a health care provider and have any questions regarding this report, please contact the number below. For patients who have questions please contact the health pediatric acute care unit nurse that requested your imaging first. Electronically signed by: [facility] ([phone]), at 09/05/2022 3:43 PM Medications: Scheduled: ??? [...] ??? insulin lispro 1-10 Units Subcutaneous Q4H JARED ??? miconazole nitrate Topical (Top) BID ??? 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 Today's plan: - Continue tube feeds - Diabetes Team aware and titrating insulin accordingly - Surgery consulted for PEG placement today # Bipolar Disorder - Continue Seroquel 100mg nightly for now, patient and want it uptitrated before discharge - C/w valproate 300mg q6h - [facility] following, NPO at present - Psychiatry Consult, [...] Medicine PGY1 Medicine Team: Jose Juan, Pager #[phone] Date: 09/09/2022 Associated attestation - Molina Flores [...] of two midnights or is on the [facility] inpatient only procedure list (status C) [...] &??Farrell's esophagus??presenting in transfer from [facility], suspected to be in cardiogenic shock and found to be in mixed shock with concern for stress cardiomyopathy. She is s/p ORIF left femoral neck fracture. Precautions/Special Considerations: aspiration, skin breakdown, falls, LLE WBAT, Dobhoff tube, Mcrae Interval History: 09/08 Yesterday: - Doing okay. [...] times/wk Total Minutes, Occupational Therapy: 45 (x3 critical [facility] hospital [phone]) Pager: [phone] DANIELA Montes 09/08/2022 Occupational Therapy Rehabilitation Department * Elsie Erickson, VAUGHN - 09/08/2022 10:53 AM EDT Follow Up [...] &??Farrell's esophagus??presenting in transfer from [facility], suspected to be in cardiogenic shock and [...] NPO for OR Monitoring:??Q4 Elsie Erickson APRN [facility] Endocrinology Diabetes Management Pager [phone] minutes of this 35 minute visit [...] &??Farrell's esophagus??presenting in transfer from [facility], suspected to be in cardiogenic shock and found to be in mixed shock with concern for stress cardiomyopathy.??She is s/p ORIF left femoral neck fracture ~ 08/08 at OSH. ?? Interval History: Dobhoff placed, Moved from ISCU to floor status, plan for PEG today. [facility] team will continue to follow for swallowing and cognition. Briana Bryant MA [facility] Inpatient Rehabilitation Medicine pager:# [phone] * Chau Keith MD - 09/08/2022 6:11 AM EDT Images from the original note were not included. Inpatient Hospital Medicine Progress Note 09/08/2022 Patient Name: ISHAN IRVING Date of : 1960 Age: 62 y.o. Hospital Admit Date: 08/14/2022 Hospital Day: 25 Inpatient Attending: Richard Pascal MD PCP: Chris Stanley APRN ([phone]) ID: Ishan Irving is a 62 y.o. 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.5 years) c/b chronic pancreatitis, iron deficiency anemia, ??GERD??c/b??esophagitis &??Farrell's esophagus, who was admitted to [facility] on 08/14/2022 (now on Hospital Day #25) [...] fellows interpretation Confirmed by fellow Niurka Rose ([id number]) on 09/07/2022 8:45:34 AM Confirmed by MD [...] Date/Time Lower Respiratory Culture Bronchial Alveolar Lavage [[id number]] Collected: 08/21/221649 Lab Status: Final result Specimen: Bronchial Alveolar Lavage Updated: 08/23/22 0741 Lower Respiratory Culture Rare mixed bacterial morphotypes suggestive of normal upper respiratory wiley Gram Stain -- Few Neutrophils seen No squamous epithelial cells seen No microorganisms seen. Fungus Culture & Calc Stain Bronchial Alveolar Lavage [[id number]] (Abnormal) Collected: 08/21/221649 Lab Status: Preliminary result Specimen: Bronchial Alveolar Lavage Updated: 08/24/22 145 AFB culture Bronchial Alveolar Lavage [[id number]] Collected: 08/21/221649 Lab Status: Preliminary result Specimen: Bronchial Alveolar Lavage Updated: 08/24/22 2219 Acid Fast Bacilli Culture -- No Acid Fast Bacilli isolated to date If active tuberculosis is suspected, the patient should be on AIR[employer] PRECAUTIONS. Call Infection Prevention for assistance if needed. Acid Fast Stain No Acid Fast Bacilli seen Fungus culture [[id number]] (Abnormal) Collected: 08/21/221649 Lab Status: Preliminary result Specimen: Bronchial Alveolar Lavage Updated: 08/24/22 145 Fungus Culture Rare Jacky albicans Calcofluor White Stain [[id number]] Collected: 08/21/221649 Lab Status: Final result Specimen: Bronchial Alveolar Lavage Updated: 08/21/22 2016 Calcofluor Stain Calcofluor White Preparation: Negative Lower Respiratory Culture Bronchial Alveolar Lavage [[id number]] Collected: 04/14/23 1645 Lab Status: Final result Specimen: Bronchial Alveolar Lavage Updated: 08/23/22 0741 Lower Respiratory Culture Rare mixed bacterial morphotypes suggestive of normal upper respiratory wiley Gram Stain -- Moderate Neutrophils seen No squamous epithelial cells seen No microorganisms seen. Fungus Culture & Calc Stain Bronchial Alveolar Lavage [[id number]] (Abnormal) Collected: 08/21/22 164 Lab Status: Preliminary result Specimen: Bronchial Alveolar Lavage Updated: 08/24/22 1453 AFB culture Bronchial Alveolar Lavage [[id number]] Collected: 08/21/221644 Lab Status: Preliminary result Specimen: Bronchial Alveolar Lavage Updated: 08/24/22 2221 Acid Fast Bacilli Culture -- No Acid Fast Bacilli isolated to date If active tuberculosis is suspected, the patient should be on AIRBORNE PRECAUTIONS. Call Infection Prevention for assistance if needed. Acid Fast Stain No Acid Fast Bacilli seen Fungus culture [[id number]] (Abnormal) Collected: 08/21/221644 Lab Status: Preliminary result Specimen: Bronchial Alveolar Lavage Updated: 08/24/22 1453 Fungus Culture Rare Jacky albicans Calcofluor White Stain [[id number]] Collected: 08/21/221644 Lab Status: Final result Specimen: Bronchial Alveolar Lavage Updated: 08/21/22 2017 Calcofluor Stain Calcofluor White Preparation: Negative Blood culture [[id number]] Collected: 08/19/22 1720 Lab Status: Final result Specimen: Blood Updated: 08/24/22 2301 Blood Culture No growth at 5 days. Lower Respiratory Culture Sputum Induced [[id number]] Collected: 08/19/22 1451 Lab Status: Final result Specimen: Sputum Induced Updated: 08/21/22 0948 Lower Respiratory Culture Rare mixed bacterial morphotypes suggestive of normal upper respiratory wiley Gram Stain -- Many Neutrophils seen Few squamous epithelial cells seen No microorganisms seen. Blood culture [[id number]] Collected: 08/19/22 1330 Lab Status: Final result Specimen: Blood Updated: 08/24/22 1501 Blood Culture No growth at 5 days. Legionella Urinary Antigen [[id number]] Collected: 08/18/22 1013 Lab Status: Final result [...] Catheter Urine; Other; sepsis, bacteria on UA [[id number]] Collected: 08/15/22 1225 Lab Status: Final result Specimen: Indwelling Catheter Urine Updated: 08/16/22 0804 Urine Culture 1,000-9,000 cfu/ml Insignificant growth COVID-19 PCR [[id number]] Collected: 08/15/22 1150 Lab Status: Final result [...] using the Simplexa COVID-19 Direct Assay by [employer] as authorized by the FDA issued Emergency [...] Department of Pathology and Laboratory Medicine at [facility], certified under the Clinical Laboratory Improvement Amendments [...] fact sheets at the following FDA website: https://www.fda.gov/medical-devices/qzrzeqffsnw-vjcigyp-9833-geuuq-25-cnbhfgnqn- iqn-myyjrmfmyrblbq-nnbejoe-devices/urwpm-arkclfkxotu-jtnh SARS-CoV-2 Source INNER DIAMETER GRINDER TOOL Swab Lower Respiratory Culture Sputum Induced [[id number]] Collected: 08/15/22 0740 Lab Status: Final result Specimen: Sputum Induced Updated: 08/17/22 1015 Lower Respiratory Culture Rare normal upper respiratory wiley Gram Stain -- Many Neutrophils Few squamous epithelial cells Rare mixed bacterial morphotypes suggestive of normal upper respiratory wiley Blood culture [[id number]] Collected: 08/15/22 0110 Lab Status: Final result Specimen: Blood Updated: 08/20/22 0701 Blood Culture No growth at 5 days. MRSA PCR Screen ([facility]/CGP/APD/NLH) [[id number]] Collected: 08/15/22 0050 Lab Status: Final result Specimen: Nasopharyngeal Swab Updated: 08/17/22 1419 MRSA Result Negative MRSA Interp -- Methicillin-resistant Staphylococcus aureus (MRSA) is NOT DETECTED The MRSA target DNA sequences (mec and SCC) were not detected within the acceptable ranges using the Xpert MRSA NxG on the GeneXpert Dx System (Page Mage). This suggests the absence of MRSA in the patient specimen submitted for testing. This test is cleared by the U.S. Food and Drug Administration for clinical use and its performance characteristics have been verified by the [facility] at [facility]. This result does not rule out the presence of any other organisms. Rare false negative results may occur if MRSA is present at low concentrations with much higher concentrations of other organisms including MRSE or S. aureus with an empty SCC cassette. Comment: [VERIFIED DATE]08.17.22 Verified By:Shannon Smiley (Electronic Signature) Blood culture [[id number]] Collected: 08/14/22 9515 Lab Status: Final result Specimen: Blood Updated: [...] who have questions please contact the health pediatric acute care unit nurse that requested your imaging first. Abdomen 1 [...] who have questions please contact the health pediatric acute care unit nurse that requested your imaging first. Electronically signed by: Liliane Adams MD, [facility] ([phone]), at 08/15/2022 9:05 AM XR Chest One [...] who have questions please contact the health pediatric acute care unit nurse that requested your imaging first. Abdomen 1 [...] who have questions please contact the health pediatric acute care unit nurse that requested your imaging first. Chest One [...] who have questions please contact the health pediatric acute care unit nurse that requested your imaging first. Electronically signed by: Alfonso Adams MD, [facility] ([phone]), at 08/16/2022 10:[address] Head wo [...] who have questions please contact the health pediatric acute care unit nurse that requested your imaging first. Electronically signed by: Moustapha Correa MD, [facility] ([phone]), at 08/16/2022 11:19 PM XR Abdomen 1 [...] who have questions please contact the health pediatric acute care unit nurse that requested your imaging first. Head wo Contrast (Generic) (Exam End: 08/18/2022 3:14 PM) Impression No acute intracranial process. Thank you for letting us participate in the care of this patient. If you are a health care provider and have any questions regarding this report, please contact the number below. For patients who have questions please contact the health pediatric acute care unit nurse that requested your imaging first. Electronically signed by: Antonio Jordan MD, [facility] ([phone]), at 08/18/2022 3:18 PM XR Chest One [...] who have questions please contact the health pediatric acute care unit nurse that requested your imaging first. Electronically signed by: Alan De Guzman MD, [facility] ([phone]), at 08/19/2022 3:14 PM MRI Brain wo Contrast (Exam End: 08/19/2022 10:15 PM) Impression No acute infarction, mass or mass effect. Thank you for letting us participate in the care of this patient. If you are a health care provider and have any questions regarding this report, please contact the number below. For patients who have questions please contact the health pediatric acute care unit nurse that requested your imaging first. Electronically signed by: Jagdeep Lee MD, [facility] ([phone]), at 08/20/2022 3:34 AM XR Chest for Verifying Vascular Access PICC [...] who have questions please contact the health pediatric acute care unit nurse that requested your imaging first. Electronically signed by: Alan De Guzman MD, [facility] ([phone]), at 08/19/2022 4:[address] Hip w [...] who have questions please contact the health pediatric acute care unit nurse that requested your imaging first. Electronically signed by: Aicha Chowdhury MD, [facility] ([phone]), at 08/21/2022 9:[address] Chest w [...] who have questions please contact the health pediatric acute care unit nurse that requested your imaging first. Electronically signed by: Jagdeep Lee MD, [facility] ([phone]), at 08/21/2022 6:56 AM XR Hip 2-3 Views Left (Exam End: 08/22/2022 12:19 AM) Impression No radiographic evidence of infection. Thank you for letting us participate in the care of this patient. If you are a health care provider and have any questions regarding this report, please contact the number below. For patients who have questions please contact the health pediatric acute care unit nurse that requested your imaging first. Electronically signed by: Viktor Cervantes MD, [facility] ([phone]), at 08/22/2022 12:43 PM XR Pelvis (Generic) (Exam End: 08/22/2022 12:19 AM) Impression No radiographic evidence of infection status post left hip ORIF. Thank you for letting us participate in the care of this patient. If you are a health care provider and have any questions regarding this report, please contact the number below. For patients who have questions please contact the health pediatric acute care unit nurse that requested your imaging first. Electronically signed by: Richard Billings MD, [facility] ([phone]), at 08/22/2022 10:[address] Angiogram Coronary [...] who have questions please contact the health pediatric acute care unit nurse that requested your imaging first. Electronically signed by: Arlette Mays MD, [facility] ([phone]), at 08/27/2022 11:[address] Chest wo Contrast (Generic) (Exam End: 08/27/2022 8:58 AM) Impression Stable findings of multifocal pneumonia. No interval abnormality. Thank you for letting us participate in the care of this patient. If you are a health care provider and have any questions regarding this report, please contact the number below. For patients who have questions please contact the health pediatric acute care unit nurse that requested your imaging first. Electronically signed by: MINH QUIROGA MD, [facility] ([phone]), at 08/27/2022 10:48 AM XR Fluoro Barium [...] who have questions please contact the health pediatric acute care unit nurse that requested your imaging first. Electronically signed by: Aron Billings MD, [facility] ([phone]), at 08/31/2022 12:02 PM XR Fluoro Barium [...] who have questions please contact the health pediatric acute care unit nurse that requested your imaging first. Electronically signed by: Alfonso Adams MD, [facility] ([phone]), at 09/04/2022 10:57 AM XR Abdomen 1 [...] who have questions please contact the health pediatric acute care unit nurse that requested your imaging first. Electronically signed by: Jagdeep Lee MD, [facility] ([phone]), at 09/04/2022 10:35 PM XR Chest One View (Exam End: 09/04/2022 9:47 [...] who have questions please contact the health pediatric acute care unit nurse that requested your imaging first. Electronically signed by: Jagdeep Lee MD, [facility] ([phone]), at 09/04/2022 10:35 PM XR Chest One View (Exam End: 09/05/2022 9:24 AM) Impression 1. Reposition enteric tube now extending below the diaphragm and included [id number]. 2. Similar appearance of elevated right hemidiaphragm and linear/patchy bibasilar opacities which may represent atelectasis or possibly aspiration. Thank you for letting us participate in the care of this patient. If you are a health care provider and have any questions regarding this report, please contact the number below. For patients who have questions please contact the health pediatric acute care unit nurse that requested your imaging first. Electronically signed by: AUDI PERDOMO MD, [facility] ([phone]), at 09/05/2022 3:43 PM Medications: Scheduled: ??? [...] ??? insulin lispro 1-10 Units Subcutaneous Q4H JARED ??? miconazole nitrate Topical (Top) BID ??? 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 Today's plan: - Continue tube feeds - Diabetes Team aware and titrating insulin accordingly - Surgery consulted for PEG placement today # Bipolar Disorder - Continue Seroquel 100mg nightly for now, patient and want it uptitrated before discharge - C/w valproate 300mg q6h - SHIP [facility]NER following, NPO at present - Psychiatry Consult, [...] Medicine PGY1 Medicine Team: Jose Juan, Pager #[phone] Date: 09/08/2022 Associated attestation - Molina Flores [...] of two midnights or is on the [facility] inpatient only procedure list (status C) [...] 4:51 PM EDT Speech-Language Pathology Contact Note: SHIP RUNNER following for swallow, cognitive intervention. Discussed with nursing this AM, pending potential PEG today and NPO with TF held. TF restarted this PM but I was unable to return due to scheduling limitations. SHIP [facility]NER team will follow up at later date for ongoing therapy, please secure chat/page withquestions/concerns. Thank you. Petty Mccullough M.S., CCC-SHIP RUNNER Inpatient Speech-Pathology Pager: [phone] * Feroz Portillo, DATABASE DESIGNER - 09/07/2022 2:50 PM EDT Physical Therapy [...] &??Farrell's esophagus??presenting in transfer from [facility], suspected to be in cardiogenic shock and found to be in mixed shock with concern for stress cardiomyopathy. She is s/p ORIF left femoral neck fracture ~ 08/08 at OSH. Interval History: Moved to [facility], dobhoff placed Social History: single level home w [...] TE-F x 3 FEROZ PORTILLO PTA Pager: [phone] Physical Therapy Inpatient Rehabilitation Department * Shanice Carrera, RD - 09/07/2022 2:38 PM EDT Nutrition Progress Note Ishan Irving is a 62 y.o.??female??with h/o bipolar, DM, EtOH, esophagitis, who presented to [facility] 3 days ago after being found unresponsive at home.?Patient found to have likely pneumonia +/- aspiration, newly reduced EF. Reason for Assessment: Tube Feeding, Follow-up Nutrition Recommendations: Enteral Nutrition: New: Cyclic Peptamen AF at 90ml/hr for 14 hrs from 8122-4255 (pended). At goal, this will provide: Peptamen AF Total Volume Per Day: 1260 mL Scoops of Protein: 0 Calories per Day: 1512 Protein per Day: 96 g Free Water mL per Day: 1023 % RDI: 101 % Monitor hydration status on above TFs as they are concentrated. Pt may need additional fluids depending on IVFs, med flushes, p.o. Intake, etc. Diet per SHIP RUNNER Continue 50,000 units vitamin D weekly; 1000 mcg folic acid and 100 mg thiamine daily. Monitor lytes. Replete as indicated Monitor BM. Goal of one every 24-48hrs while on EN Monitor weight to trend I was able to discuss plan with provider Murphy Manzano [phone] Current Nutrition Regimen: Active Orders Diet NPO diet (Give Meds) Frequency: Effective Now Number of Occurrences: Until Specified All Active TF Orders: Tubefeeding Orders (From admission, onward) Start Dose/Rate Route Frequency Ordered Stop 08/31/22 1745 tube feeding diet 1,320 mL 110 mL/hr Per NG tube Cyclic-(Tube feed) 08/31/22 1651 Cyclic Peptamen AF at 110ml/hr for 12hrs from 5197-4028 (see updated order above as of 5/1). Average tube feeding provision over past 3 [...] encounter: 64.1 kg (141 lb 5 oz). [place] Body Weight (IBW) (kg): 45.45 Usual Body [...] 08/25 r/t liquid tylenol, d/c per this verse writer's request as liquid tylenol acts as [...] up while inpatient Shanice Carrera RD Pager #:[phone] * Elsie Erickson, RADIO INTERFERENCE TROUBLE SHOOTER - 09/07/2022 1:39 PM EDT Follow Up [...] 0906 09/06/22 0339 09/05/22 2329 09/05/22 2220 09/05/22 1917 POCGLU 153 150 135 127 184 [...] &??Farrell's esophagus??presenting in transfer from [facility], suspected to be in cardiogenic shock and [...] of 110 mls/hr Monitoring:??Q4 Elsie Erickson APRN [facility] Endocrinology Diabetes Management Pager [phone] 20 minutes of this 35 minute visit [...] 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.5 years) c/b chronic pancreatitis, iron deficiency anemia, ??GERD??c/b??esophagitis &??Farrell's esophagus, who was admitted to [facility] on 08/14/2022 (now on Hospital Day #24) [...] dry, no rashes LABS: CBC: Recent Labs 09/07/220 09/06/220 09/05/2210509/04/22 0026 09/03/22 0040 WBC 6.2 6.3 4.9 6.7 5.1 HGB 9.1* 8.6* 8.7* 8.5* 8.4* HCT 30.5* 29.0* 29.0* 28.1* 27.1* PLATELET 286 297 314 300 305 NEUTROABS 2.71 2.64 1.88 4.05 2.19 Chemistry: Recent Labs 09/07/22 0030 09/06/220 09/05/226 09/04/22 0026 09/03/22 0040 NA 138 139 140 [...] Date/Time Lower Respiratory Culture Bronchial Alveolar Lavage [[id number]] Collected: 08/21/22 1650 Lab Status: Final result Specimen: Bronchial Alveolar Lavage Updated: 08/23/22 0741 Lower Respiratory Culture Rare mixed bacterial morphotypes suggestive of normal upper respiratory wiley Gram Stain -- Few Neutrophils seen No squamous epithelial cells seen No microorganisms seen. Fungus Culture & Calc Stain Bronchial Alveolar Lavage [[id number]] (Abnormal) Collected: 08/21/221649 Lab Status: Preliminary result Specimen: Bronchial Alveolar Lavage Updated: 08/24/22 1452 AFB culture Bronchial Alveolar Lavage [[id number]] Collected: 08/21/221649 Lab Status: Preliminary result Specimen: Bronchial Alveolar Lavage Updated: 08/24/22 2219 Acid Fast Bacilli Culture -- No Acid Fast Bacilli isolated to date If active tuberculosis is suspected, the patient should be on [employer] PRECAUTIONS. Call Infection Prevention for assistance if needed. Acid Fast Stain No Acid Fast Bacilli seen Fungus culture [[id number]] (Abnormal) Collected: 08/21/221649 Lab Status: Preliminary result Specimen: Bronchial Alveolar Lavage Updated: 08/24/22 145 Fungus Culture Rare Jacky albicans Calcofluor White Stain [[id number]] Collected: 08/21/221649 Lab Status: Final result Specimen: Bronchial Alveolar Lavage Updated: 08/21/222015 Calcofluor Stain Calcofluor White Preparation: Negative Lower Respiratory Culture Bronchial Alveolar Lavage [[id number]] Collected: 08/21/221644 Lab Status: Final result Specimen: Bronchial Alveolar Lavage Updated: 08/23/22 0741 Lower Respiratory Culture Rare mixed bacterial morphotypes suggestive of normal upper respiratory wiley Gram Stain -- Moderate Neutrophils seen No squamous epithelial cells seen No microorganisms seen. Fungus Culture & Calc Stain Bronchial Alveolar Lavage [[id number]] (Abnormal) Collected: 08/21/221644 Lab Status: Preliminary result Specimen: Bronchial Alveolar Lavage Updated: 08/24/22 1453 AFB culture Bronchial Alveolar Lavage [[id number]] Collected: 08/21/221644 Lab Status: Preliminary result Specimen: Bronchial Alveolar Lavage Updated: 08/24/22 2221 Acid Fast Bacilli Culture -- No Acid Fast Bacilli isolated to date If active tuberculosis is suspected, the patient should be on [employer] PRECAUTIONS. Call Infection Prevention for assistance if needed. Acid Fast Stain No Acid Fast Bacilli seen Fungus culture [[id number]] (Abnormal) Collected: 08/21/221644 Lab Status: Preliminary result Specimen: Bronchial Alveolar Lavage Updated: 08/24/22 145 Fungus Culture Rare Jacky albicans Calcofluor White Stain [[id number]] Collected: 08/21/221644 Lab Status: Final result Specimen: Bronchial Alveolar Lavage Updated: 04/14/23 2017 Calcofluor Stain Calcofluor White Preparation: Negative Blood culture [[id number]] Collected: 08/19/22 1720 Lab Status: Final result Specimen: Blood Updated: 08/24/22 2301 Blood Culture No growth at 5 days. Lower Respiratory Culture Sputum Induced [[id number]] Collected: 08/19/22 1451 Lab Status: Final result Specimen: Sputum Induced Updated: 08/21/22 0948 Lower Respiratory Culture Rare mixed bacterial morphotypes suggestive of normal upper respiratory wiley Gram Stain -- Many Neutrophils seen Few squamous epithelial cells seen No microorganisms seen. Blood culture [[id number]] Collected: 08/19/22 1330 Lab Status: Final result Specimen: Blood Updated: 08/24/22 1501 Blood Culture No growth at 5 days. Legionella Urinary Antigen [[id number]] Collected: 08/18/22 1013 Lab Status: Final result [...] Catheter Urine; Other; sepsis, bacteria on UA [[id number]] Collected: 08/15/22 1225 Lab Status: Final result Specimen: Indwelling Catheter Urine Updated: 08/16/22 0804 Urine Culture 1,000-9,000 cfu/ml Insignificant growth COVID-19 PCR [[id number]] Collected: 08/15/22 1150 Lab Status: Final result [...] using the Simplexa COVID-19 Direct Assay by [employer] as authorized by the FDA issued Emergency [...] Department of Pathology and Laboratory Medicine at [facility], certified under the Clinical Laboratory Improvement Amendments [...] fact sheets at the following FDA website: https://www.fda.gov/medical-devices/bnofbcixqcl-kgulrmf-1753-owbmi-54-lvngsukmn- cvl-sgndcenephgtwg-elnolgo-devices/iyfvq-zvydzdqysat-lqpv SARS-CoV-2 Source INNER DIAMETER GRINDER TOOL Swab Lower Respiratory Culture Sputum Induced [[id number]] Collected: 08/15/22 0740 Lab Status: Final result Specimen: Sputum Induced Updated: 08/17/22 1015 Lower Respiratory Culture Rare normal upper respiratory wiley Gram Stain -- Many Neutrophils Few squamous epithelial cells Rare mixed bacterial morphotypes suggestive of normal upper respiratory wiley Blood culture [[id number]] Collected: 08/15/22 0110 Lab Status: Final result Specimen: Blood Updated: 08/20/22 0701 Blood Culture No growth at 5 days. MRSA PCR Screen ([facility]/CGP/APD/NL) [[id number]] Collected: 08/15/22 0050 Lab Status: Final result Specimen: Nasopharyngeal Swab Updated: 08/17/22 1419 MRSA Result Negative MRSA Interp -- Methicillin-resistant Staphylococcus aureus (MRSA) is NOT DETECTED The MRSA target DNA sequences (mec and SCC) were not detected within the acceptable ranges using the Xpert MRSA NxG on the GeneXpert Dx System (Page Mage). This suggests the absence of MRSA in the patient specimen submitted for testing. This test is cleared by the U.S. Food and Drug Administration for clinical use and its performance characteristics have been verified by the [facility] at [facility]. This result does not rule out the presence of any other organisms. Rare false negative results may occur if MRSA is present at low concentrations with much higher concentrations of other organisms including MRSE or S. aureus with an empty SCC cassette. Comment: [VERIFIED DATE]08.17.22 Verified By:Shannon Smiley (Electronic Signature) Blood culture [[id number]] Collected: 08/14/22 2355 Lab Status: Final result [...] who have questions please contact the health pediatric acute care unit nurse that requested your imaging first. Abdomen 1 [...] who have questions please contact the health pediatric acute care unit nurse that requested your imaging first. Electronically signed by: Liliane Adams MD, [facility] ([phone]), at 08/15/2022 9:05 AM XR Chest One [...] who have questions please contact the health pediatric acute care unit nurse that requested your imaging first. Abdomen 1 [...] who have questions please contact the health pediatric acute care unit nurse that requested your imaging first. Chest One [...] who have questions please contact the health pediatric acute care unit nurse that requested your imaging first. Electronically signed by: Alfonso Adams MD, [facility] ([phone]), at 08/16/2022 10:[address] Head wo [...] who have questions please contact the health pediatric acute care unit nurse that requested your imaging first. Electronically signed by: Moustapha Correa MD, [facility] ([phone]), at 08/16/2022 11:19 PM XR Abdomen 1 [...] who have questions please contact the health pediatric acute care unit nurse that requested your imaging first. Head wo Contrast (Generic) (Exam End: 08/18/2022 3:14 PM) Impression No acute intracranial process. Thank you for letting us participate in the care of this patient. If you are a health care provider and have any questions regarding this report, please contact the number below. For patients who have questions please contact the health pediatric acute care unit nurse that requested your imaging first. Electronically signed by: Antonio Jordan MD, [facility] ([phone]), at 08/18/2022 3:18 PM XR Chest One [...] who have questions please contact the health pediatric acute care unit nurse that requested your imaging first. Electronically signed by: Alan De Guzman MD, [facility] ([phone]), at 08/19/2022 3:14 PM MRI Brain wo Contrast (Exam End: 08/19/2022 10:15 PM) Impression No acute infarction, mass or mass effect. Thank you for letting us participate in the care of this patient. If you are a health care provider and have any questions regarding this report, please contact the number below. For patients who have questions please contact the health pediatric acute care unit nurse that requested your imaging first. Electronically signed by: Jagdeep Lee MD, [facility] ([phone]), at 08/20/2022 3:34 AM XR Chest for Verifying Vascular Access PICC [...] who have questions please contact the health pediatric acute care unit nurse that requested your imaging first. Electronically signed by: Alan De Guzman MD, [facility] ([phone]), at 08/19/2022 4:[address] Hip w [...] who have questions please contact the health pediatric acute care unit nurse that requested your imaging first. Electronically signed by: Aicha Chowdhury MD, [facility] ([phone]), at 08/21/2022 9:[address] Chest w [...] who have questions please contact the health pediatric acute care unit nurse that requested your imaging first. Electronically signed by: Jagdeep Lee MD, [facility] ([phone]), at 08/21/2022 6:56 AM XR Hip 2-3 Views Left (Exam End: 08/22/2022 12:19 AM) Impression No radiographic evidence of infection. Thank you for letting us participate in the care of this patient. If you are a health care provider and have any questions regarding this report, please contact the number below. For patients who have questions please contact the health pediatric acute care unit nurse that requested your imaging first. Electronically signed by: Viktor Cervantes MD, [facility] ([phone]), at 08/22/2022 12:43 PM XR Pelvis (Generic) (Exam End: 08/22/2022 12:19 AM) Impression No radiographic evidence of infection status post left hip ORIF. Thank you for letting us participate in the care of this patient. If you are a health care provider and have any questions regarding this report, please contact the number below. For patients who have questions please contact the health pediatric acute care unit nurse that requested your imaging first. Electronically signed by: Richard Billings MD, [facility] ([phone]), at 08/22/2022 10:[address] Angiogram Coronary [...] who have questions please contact the health pediatric acute care unit nurse that requested your imaging first. Electronically signed by: Arlette Mays MD, [facility] ([phone]), at 08/27/2022 11:[address] Chest wo Contrast (Generic) (Exam End: 08/27/2022 8:58 AM) Impression Stable findings of multifocal pneumonia. No interval abnormality. Thank you for letting us participate in the care of this patient. If you are a health care provider and have any questions regarding this report, please contact the number below. For patients who have questions please contact the health pediatric acute care unit nurse that requested your imaging first. Electronically signed by: MINH QUIROGA MD, [facility] ([phone]), at 08/27/2022 10:48 AM XR Fluoro Barium [...] who have questions please contact the health pediatric acute care unit nurse that requested your imaging first. Electronically signed by: Aron Billings MD, [facility] ([phone]), at 08/31/2022 12:02 PM XR Fluoro Barium [...] who have questions please contact the health pediatric acute care unit nurse that requested your imaging first. Electronically signed by: Alfonso Adams MD, [facility] ([phone]), at 09/04/2022 10:57 AM XR Abdomen 1 [...] who have questions please contact the health pediatric acute care unit nurse that requested your imaging first. Electronically signed by: Jagdeep Lee MD, [facility] ([phone]), at 09/04/2022 10:35 PM XR Chest One View (Exam End: 09/04/2022 9:47 [...] who have questions please contact the health pediatric acute care unit nurse that requested your imaging first. Electronically signed by: Jagdeep Lee MD, [facility] ([phone]), at 09/04/2022 10:35 PM XR Chest One View (Exam End: 09/05/2022 9:24 AM) Impression 1. Reposition enteric tube now extending below the diaphragm and included [id number]. 2. Similar appearance of elevated right hemidiaphragm and linear/patchy bibasilar opacities which may represent atelectasis or possibly aspiration. Thank you for letting us participate in the care of this patient. If you are a health care provider and have any questions regarding this report, please contact the number below. For patients who have questions please contact the health pediatric acute care unit nurse that requested your imaging first. Electronically signed by: AUDI PERDOMO MD, [facility] ([phone]), at 09/05/2022 3:43 PM Medications: Scheduled: ??? [...] ??? insulin lispro 1-10 Units Subcutaneous Q4H JARED ??? miconazole nitrate Topical (Top) BID ??? [...] RD??c/b??esophagitis &??Farrell's esophagus, who was admitted to [facility] on 08/14/2022 (now on Hospital Day #23) [...] them thatshe should continue to work with PT/OT/SHIP RUNNER/nursing but that the most recent assessments still recommended acute rehab. Today's plan: - Continue tube feeds - Diabetes Team aware and titrating insulin accordingly - IR consulted for PEG placement this week # Bipolar Disorder - Continue Seroquel 100mg nightly for now, patient and want it uptitrated before discharge - C/w valproate 300mg q6h - SHIP RUNNER following, NPO at present - Psychiatry Consult, [...] Medicine PGY1 Medicine Team: Jose Juan, Pager #[phone] Date: 09/07/2022 Associated attestation - Molina Flores [...] of two midnights or is on the [facility] inpatient only procedure list (status C) [...] not included. Inpatient Hospital Medicine Progress Note 09/06/2022 Patient Name: ISHAN IRVING Date of : 1960 Age: 62 y.o. Hospital Admit Date: 08/14/2022 Hospital Day: 23 Inpatient Attending: Richard Pascal MD PCP: Chris Stanley APRN ([phone]) ID: Ishan Irving is a 62 y.o. 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.5 years) c/b chronic pancreatitis, iron deficiency anemia, ??GERD??c/b??esophagitis &??Farrell's esophagus, who was admitted to [facility] on 08/14/2022 (now on Hospital Day #23) [...] dry, no rashes LABS: CBC: Recent Labs 09/06/220 09/05/226 09/04/22 0026 09/03/22 0040 09/02/22 0105 WBC 6.3 4.9 6.7 5.1 5.9 HGB 8.6* 8.7* 8.5* 8.4* 8.3* HCT 29.0* 29.0* 28.1* 27.1* 27.7* PLATELET 297 314 300 305 344 NEUTROABS 2.64 1.88 4.05 2.19 2.83 Retic count 09/02: 2.2% (high normal), Retic hgb 22.9% (low), immature Retic 45% (very high), absolute 0.08 (normal range) Chemistry: Recent Labs 09/06/229909/05/226 09/04/22 0026 09/03/22 0040 09/02/22 0105 NA 139 140 141 138 136 K 4.3 3.8 4.3 4.1 4.4 CL 104 103 104 102 100 CO2 28 28 29 29 30 BUN 21* 21* 30* 28* 30* CREATININE 0.49* 0.49* 0.53* 0.49* 0.52* GLUCOSE 95 95 131 107 114 ANIONGAP 7 9 8 7 6 Recent Labs 09/06/220 09/05/226 09/04/22 0026 09/03/22 0040 09/02/22 0105 CALCIUM [...] 09/01/2022 4:28:11 PM QTCCALC 475 09/01/2022 0224 Microbiology: Lab Results Component Value Date/Time URINECULTURE [...] Date/Time Lower Respiratory Culture Bronchial Alveolar Lavage [[id number]] Collected: 08/21/221649 Lab Status: Final result Specimen: Bronchial Alveolar Lavage Updated: 08/23/22 0741 Lower Respiratory Culture Rare mixed bacterial morphotypes suggestive of normal upper respiratory wiley Gram Stain -- Few Neutrophils seen No squamous epithelial cells seen No microorganisms seen. Fungus Culture & Calc Stain Bronchial Alveolar Lavage [[id number]] (Abnormal) Collected: 08/21/221649 Lab Status: Preliminary result Specimen: Bronchial Alveolar Lavage Updated: 08/24/22 1452 AFB culture Bronchial Alveolar Lavage [[id number]] Collected: 08/21/221649 Lab Status: Preliminary result Specimen: Bronchial Alveolar Lavage Updated: 08/24/22 221 Acid Fast Bacilli Culture -- No Acid Fast Bacilli isolated to date If active tuberculosis is suspected, the patient should be on [employer] PRECAUTIONS. Call Infection Prevention for assistance if needed. Acid Fast Stain No Acid Fast Bacilli seen Fungus culture [[id number]] (Abnormal) Collected: 08/21/221649 Lab Status: Preliminary result Specimen: Bronchial Alveolar Lavage Updated: 08/24/22 145 Fungus Culture Rare Jacky albicans Calcofluor White Stain [[id number]] Collected: 08/21/221649 Lab Status: Final result Specimen: Bronchial Alveolar Lavage Updated: 08/21/22 2016 Calcofluor Stain Calcofluor White Preparation: Negative Lower Respiratory Culture Bronchial Alveolar Lavage [[id number]] Collected: 08/21/221644 Lab Status: Final result Specimen: Bronchial Alveolar Lavage Updated: 08/23/2241 Lower Respiratory Culture Rare mixed bacterial morphotypes suggestive of normal upper respiratory wiley Gram Stain -- Moderate Neutrophils seen No squamous epithelial cells seen No microorganisms seen. Fungus Culture & Calc Stain Bronchial Alveolar Lavage [[id number]] (Abnormal) Collected: 08/21/221644 Lab Status: Preliminary result Specimen: Bronchial Alveolar Lavage Updated: 08/24/22 1453 AFB culture Bronchial Alveolar Lavage [[id number]] Collected: 08/21/221644 Lab Status: Preliminary result Specimen: Bronchial Alveolar Lavage Updated: 08/24/22 2221 Acid Fast Bacilli Culture -- No Acid Fast Bacilli isolated to date If active tuberculosis is suspected, the patient should be on [employer] PRECAUTIONS. Call Infection Prevention for assistance if needed. Acid Fast Stain No Acid Fast Bacilli seen Fungus culture [[id number]] (Abnormal) Collected: 08/21/22 164 Lab Status: Preliminary result Specimen: Bronchial Alveolar Lavage Updated: 08/24/22 1453 Fungus Culture Rare Jacky albicans Calcofluor White Stain [[id number]] Collected: 08/21/22 164 Lab Status: Final result Specimen: Bronchial Alveolar Lavage Updated: 08/21/22 2017 Calcofluor Stain Calcofluor White Preparation: Negative Blood culture [[id number]] Collected: 08/19/22 1720 Lab Status: Final result Specimen: Blood Updated: 08/24/22 2301 Blood Culture No growth at 5 days. Lower Respiratory Culture Sputum Induced [[id number]] Collected: 08/19/22 1451 Lab Status: Final result Specimen: Sputum Induced Updated: 08/21/22 0948 Lower Respiratory Culture Rare mixed bacterial morphotypes suggestive of normal upper respiratory wiley Gram Stain -- Many Neutrophils seen Few squamous epithelial cells seen No microorganisms seen. Blood culture [[id number]] Collected: 08/19/22 1330 Lab Status: Final result Specimen: Blood Updated: 08/24/22 1501 Blood Culture No growth at 5 days. Legionella Urinary Antigen [[id number]] Collected: 08/18/22 1013 Lab Status: Final result [...] Catheter Urine; Other; sepsis, bacteria on UA [[id number]] Collected: 08/15/22 1225 Lab Status: Final result Specimen: Indwelling Catheter Urine Updated: 08/16/22 0804 Urine Culture 1,000-9,000 cfu/ml Insignificant growth COVID-19 PCR [[id number]] Collected: 08/15/22 1150 Lab Status: Final result [...] using the Simplexa COVID-19 Direct Assay by [employer] as authorized by the FDA issued Emergency [...] Department of Pathology and Laboratory Medicine at [facility], certified under the Clinical Laboratory Improvement Amendments [...] fact sheets at the following FDA website: https://www.fda.gov/medical-devices/okixgoqdmey-ytwldpc-0410-rzihf-09-kfwozhhjw- gkq-pllsmsagapejyy-lbpwfko-devices/hwmrz-zefwprrbtik-xeja SARS-CoV-2 Source INNER DIAMETER GRINDER TOOL Swab Lower Respiratory Culture Sputum Induced [[id number]] Collected: 04/08/23 0740 Lab Status: Final result Specimen: Sputum Induced Updated: 08/17/22 1015 Lower Respiratory Culture Rare normal upper respiratory wiley Gram Stain -- Many Neutrophils Few squamous epithelial cells Rare mixed bacterial morphotypes suggestive of normal upper respiratory wiley Blood culture [[id number]] Collected: 08/15/22 0110 Lab Status: Final result Specimen: Blood Updated: 08/20/22 0701 Blood Culture No growth at 5 days. MRSA PCR Screen ([facility]/CGP/APD/NLH) [[id number]] Collected: 08/15/22 0050 Lab Status: Final result Specimen: Nasopharyngeal Swab Updated: 08/17/22 1419 MRSA Result Negative MRSA Interp -- Methicillin-resistant Staphylococcus aureus (MRSA) is NOT DETECTED The MRSA target DNA sequences (mec and SCC) were not detected within the acceptable ranges using the Xpert MRSA NxG on the GeneXpert Dx System (Page Mage). This suggests the absence of MRSA in the patient specimen submitted for testing. This test is cleared by the U.S. Food and Drug Administration for clinical use and its performance characteristics have been verified by the [facility] at [facility]. This result does not rule out the presence of any other organisms. Rare false negative results may occur if MRSA is present at low concentrations with much higher concentrations of other organisms including MRSE or S. aureus with an empty SCC cassette. Comment: [VERIFIED DATE]08.17.22 Verified By:Shannon Smiley (Electronic Signature) Blood culture [[id number]] Collected: 08/14/22 2355 Lab Status: Final result [...] who have questions please contact the health pediatric acute care unit nurse that requested your imaging first. Abdomen 1 [...] who have questions please contact the health pediatric acute care unit nurse that requested your imaging first. Electronically signed by: Liliane Adams MD, [facility] ([phone]), at 08/15/2022 9:05 AM XR Chest One [...] who have questions please contact the health pediatric acute care unit nurse that requested your imaging first. Abdomen 1 [...] who have questions please contact the health pediatric acute care unit nurse that requested your imaging first. Chest One [...] who have questions please contact the health pediatric acute care unit nurse that requested your imaging first. Electronically signed by: Alfonso Adams MD, [facility] ([phone]), at 08/16/2022 10:[address] Head wo [...] who have questions please contact the health pediatric acute care unit nurse that requested your imaging first. Electronically signed by: Moustapha Correa MD, [facility] ([phone]), at 08/16/2022 11:19 PM XR Abdomen 1 [...] who have questions please contact the health pediatric acute care unit nurse that requested your imaging first. Head wo Contrast (Generic) (Exam End: 08/18/2022 3:14 PM) Impression No acute intracranial process. Thank you for letting us participate in the care of this patient. If you are a health care provider and have any questions regarding this report, please contact the number below. For patients who have questions please contact the health pediatric acute care unit nurse that requested your imaging first. Electronically signed by: Antonio Jordan MD, [facility] ([phone]), at 08/18/2022 3:18 PM XR Chest One [...] who have questions please contact the health pediatric acute care unit nurse that requested your imaging first. Electronically signed by: Alan De Guzman MD, [facility] ([phone]), at 08/19/2022 3:14 PM MRI Brain wo Contrast (Exam End: 08/19/2022 10:15 PM) Impression No acute infarction, mass or mass effect. Thank you for letting us participate in the care of this patient. If you are a health care provider and have any questions regarding this report, please contact the number below. For patients who have questions please contact the health pediatric acute care unit nurse that requested your imaging first. Electronically signed by: Jagdeep Lee MD, [facility] ([phone]), at 08/20/2022 3:34 AM XR Chest for Verifying Vascular Access PICC [...] who have questions please contact the health pediatric acute care unit nurse that requested your imaging first. Electronically signed by: Alan De Guzman MD, [facility] ([phone]), at 08/19/2022 4:[address] Hip w [...] who have questions please contact the health pediatric acute care unit nurse that requested your imaging first. Electronically signed by: Aicha Chowdhury MD, [facility] ([phone]), at 08/21/2022 9:[address] Chest w [...] who have questions please contact the health pediatric acute care unit nurse that requested your imaging first. Electronically signed by: Jagdeep Lee MD, [facility] ([phone]), at 08/21/2022 6:56 AM XR Hip 2-3 Views Left (Exam End: 08/22/2022 12:19 AM) Impression No radiographic evidence of infection. Thank you for letting us participate in the care of this patient. If you are a health care provider and have any questions regarding this report, please contact the number below. For patients who have questions please contact the health pediatric acute care unit nurse that requested your imaging first. Electronically signed by: Viktor Cervantes MD, [facility] ([phone]), at 08/22/2022 12:43 PM XR Pelvis (Generic) (Exam End: 08/22/2022 12:19 AM) Impression No radiographic evidence of infection status post left hip ORIF. Thank you for letting us participate in the care of this patient. If you are a health care provider and have any questions regarding this report, please contact the number below. For patients who have questions please contact the health pediatric acute care unit nurse that requested your imaging first. Electronically signed by: Richard Billings MD, [facility] ([phone]), at 08/22/2022 10:[address] Angiogram Coronary [...] who have questions please contact the health pediatric acute care unit nurse that requested your imaging first. Electronically signed by: Arlette Mays MD, [facility] ([phone]), at 08/27/2022 11:[address] Chest wo Contrast (Generic) (Exam End: 08/27/2022 8:58 AM) Impression Stable findings of multifocal pneumonia. No interval abnormality. Thank you for letting us participate in the care of this patient. If you are a health care provider and have any questions regarding this report, please contact the number below. For patients who have questions please contact the health pediatric acute care unit nurse that requested your imaging first. Electronically signed by: MINH QUIROGA MD, [facility] ([phone]), at 08/27/2022 10:48 AM XR Fluoro Barium [...] who have questions please contact the health pediatric acute care unit nurse that requested your imaging first. Electronically signed by: Aron Billings MD, [facility] ([phone]), at 08/31/2022 12:02 PM XR Fluoro Barium [...] who have questions please contact the health pediatric acute care unit nurse that requested your imaging first. Electronically signed by: Alfonso Adams MD, [facility] ([phone]), at 09/04/2022 10:57 AM XR Abdomen 1 [...] who have questions please contact the health pediatric acute care unit nurse that requested your imaging first. Electronically signed by: Jagdeep Lee MD, [facility] ([phone]), at 09/04/2022 10:35 PM XR Chest One View (Exam End: 09/04/2022 9:47 [...] who have questions please contact the health pediatric acute care unit nurse that requested your imaging first. Electronically signed by: Jagdeep Lee MD, [facility] ([phone]), at 09/04/2022 10:35 PM XR Chest One View (Exam End: 09/05/2022 9:24 AM) Impression 1. Reposition enteric tube now extending below the diaphragm and included eenbh-bh-wcqn. 2. Similar appearance of elevated right hemidiaphragm and linear/patchy bibasilar opacities which may represent atelectasis or possibly aspiration. Thank you for letting us participate in the care of this patient. If you are a health care provider and have any questions regarding this report, please contact the number below. For patients who have questions please contact the health pediatric acute care unit nurse that requested your imaging first. Electronically signed by: AUDI PERDOMO MD, [facility] ([phone]), at 09/05/2022 3:43 PM Medications: Scheduled: ??? insulin glargine (Lantus;Semglee) (100 unit/mL) subcutaneous injection 14 Units Subcutaneous Daily ??? insulin lispro 1-6 Units Subcutaneous Q4H JARED ??? metoprolol tartrate 12.5 mg Oral 2 [...] RD??c/b??esophagitis &??Farrell's esophagus, who was admitted to [facility] on 08/14/2022 (now on Hospital Day #23) [...] that she should continue to work with PT/OT/SHIP [facility]NER/nursing but that the most recent assessments still recommended acute rehab. Today's plan: - Tube feeds at goal - Diabetes Team aware and titrating insulin accordingly - bridle NG tube to ensure do not need to replace NG before PEG # Bipolar Disorder - Continue Seroquel 100mg nightly - C/w valproate 300mg q6h > level 25mg/L 08/29 - [facility] following, NPO at present - Psychiatry Consult, [...] Medicine PGY2 Medicine Team: Jose Juan, Pager #[phone] Date: 09/06/2022 Associated attestation - Richard Pascal [...] of two midnights or is on the [facility] inpatient only procedure list (status C) [...] study was performed by an ultrasound credentialed [facility] medicine physician. These images were archived digitally in [facility] and I independently interpreted the images at [...] RD??c/b??esophagitis &??Farrell's esophagus, who was admitted to [facility] on 08/14/2022 (now on Hospital Day #21), [...] and I agree with them as documented. Sibma Saha MD * Irwin Jones MD - 09/05/2022 7:37 AM EDT Images from the original note were not included. Inpatient Hospital Medicine Progress Note 09/05/2022 Patient Name: ISHAN IRVING Date of : 1960 Age: 62 y.o. Hospital Admit Date: 08/14/2022 Hospital Day: 22 Inpatient Attending: Richard Pascal MD PCP: Chris Stanley APRN ([phone]) No chief complaint on file. ID: Ishan Irving is a 62 y.o. 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.5 years) c/b chronic pancreatitis, iron deficiency anemia, ??GERD??c/b??esophagitis &??Farrell's esophagus, who was admitted to [facility] on 08/14/2022 (now on Hospital Day #22), [...] Gas): No results found for: PHART, PO2ART, AXK8TOU, SAA1VFI VBG (Venous Blood Gas): No results for input(s): PHVEN, AVQ0LLO, PO2VEN, YSV5IGI, BEVEN, BXG2VXW in the last 72 hours. EKG: Lab [...] Date/Time Lower Respiratory Culture Bronchial Alveolar Lavage [[id number]] Collected: 08/21/221649 Lab Status: Final result Specimen: Bronchial Alveolar Lavage Updated: 08/23/22 0741 Lower Respiratory Culture Rare mixed bacterial morphotypes suggestive of normal upper respiratory wiley Gram Stain -- Few Neutrophils seen No squamous epithelial cells seen No microorganisms seen. Fungus Culture & Calc Stain Bronchial Alveolar Lavage [[id number]] (Abnormal) Collected: 08/21/221649 Lab Status: Preliminary result Specimen: Bronchial Alveolar Lavage Updated: 08/24/22 145 AFB culture Bronchial Alveolar Lavage [[id number]] Collected: 08/21/221649 Lab Status: Preliminary result Specimen: Bronchial Alveolar Lavage Updated: 08/24/22 2219 Acid Fast Bacilli Culture -- No Acid Fast Bacilli isolated to date If active tuberculosis is suspected, the patient should be on [employer] PRECAUTIONS. Call Infection Prevention for assistance if needed. Acid Fast Stain No Acid Fast Bacilli seen Fungus culture [[id number]] (Abnormal) Collected: 08/21/221649 Lab Status: Preliminary result Specimen: Bronchial Alveolar Lavage Updated: 08/24/22 145 Fungus Culture Rare Jacky albicans Calcofluor White Stain [[id number]] Collected: 08/21/221649 Lab Status: Final result Specimen: Bronchial Alveolar Lavage Updated: 08/21/222015 Calcofluor Stain Calcofluor White Preparation: Negative Lower Respiratory Culture Bronchial Alveolar Lavage [[id number]] Collected: 08/21/221644 Lab Status: Final result Specimen: Bronchial Alveolar Lavage Updated: 08/23/2241 Lower Respiratory Culture Rare mixed bacterial morphotypes suggestive of normal upper respiratory wiley Gram Stain -- Moderate Neutrophils seen No squamous epithelial cells seen No microorganisms seen. Fungus Culture & Calc Stain Bronchial Alveolar Lavage [[id number]] (Abnormal) Collected: 08/21/221644 Lab Status: Preliminary result Specimen: Bronchial Alveolar Lavage Updated: 08/24/22 1453 AFB culture Bronchial Alveolar Lavage [[id number]] Collected: 08/21/221644 Lab Status: Preliminary result Specimen: Bronchial Alveolar Lavage Updated: 08/24/222220 Acid Fast Bacilli Culture -- No Acid Fast Bacilli isolated to date If active tuberculosis is suspected, the patient should be on [employer] PRECAUTIONS. Call Infection Prevention for assistance if needed. Acid Fast Stain No Acid Fast Bacilli seen Fungus culture [[id number]] (Abnormal) Collected: 08/21/22 1645 Lab Status: Preliminary result Specimen: Bronchial Alveolar Lavage Updated: 08/24/22 1453 Fungus Culture Rare Jacky albicans Calcofluor White Stain [[id number]] Collected: 08/21/22 164 Lab Status: Final result Specimen: Bronchial Alveolar Lavage Updated: 08/21/22 2017 Calcofluor Stain Calcofluor White Preparation: Negative Blood culture [[id number]] Collected: 08/19/22 1720 Lab Status: Final result Specimen: Blood Updated: 08/24/22 2301 Blood Culture No growth at 5 days. Lower Respiratory Culture Sputum Induced [[id number]] Collected: 08/19/22 1451 Lab Status: Final result Specimen: Sputum Induced Updated: 08/21/22 0948 Lower Respiratory Culture Rare mixed bacterial morphotypes suggestive of normal upper respiratory wiley Gram Stain -- Many Neutrophils seen Few squamous epithelial cells seen No microorganisms seen. Blood culture [[id number]] Collected: 08/19/22 1330 Lab Status: Final result Specimen: Blood Updated: 08/24/22 1501 Blood Culture No growth at 5 days. Legionella Urinary Antigen [[id number]] Collected: 08/18/22 1013 Lab Status: Final result [...] Catheter Urine; Other; sepsis, bacteria on UA [[id number]] Collected: 08/15/22 1225 Lab Status: Final result Specimen: Indwelling Catheter Urine Updated: 08/16/22 0804 Urine Culture 1,000-9,000 cfu/ml Insignificant growth COVID-19 PCR [[id number]] Collected: 08/15/22 1150 Lab Status: Final result [...] using the Simplexa COVID-19 Direct Assay by [employer] as authorized by the FDA issued Emergency [...] Department of Pathology and Laboratory Medicine at [facility], certified under the Clinical Laboratory Improvement Amendments [...] fact sheets at the following FDA website: https://www.fda.gov/medical-devices/nvxpapzgqah-ovrkggu-2082-vpvmh-69-pebeevxaf- obo-jkupilwbtwycif-bhfookt-devices/qgawv-cqejtprahjo-gckp SARS-CoV-2 Source INNER DIAMETER GRINDER TOOL Swab Lower Respiratory Culture Sputum Induced [[id number]] Collected: 08/15/22 0740 Lab Status: Final result Specimen: Sputum Induced Updated: 08/17/22 1015 Lower Respiratory Culture Rare normal upper respiratory wiley Gram Stain -- Many Neutrophils Few squamous epithelial cells Rare mixed bacterial morphotypes suggestive of normal upper respiratory wiley Blood culture [[id number]] Collected: 08/15/22 0110 Lab Status: Final result Specimen: Blood Updated: 08/20/22 0701 Blood Culture No growth at 5 days. MRSA PCR Screen ([facility]/CGP/APD/NLH) [[id number]] Collected: 08/15/22 0050 Lab Status: Final result Specimen: Nasopharyngeal Swab Updated: 08/17/22 1419 MRSA Result Negative MRSA Interp -- Methicillin-resistant Staphylococcus aureus (MRSA) is NOT DETECTED The MRSA target DNA sequences (mec and SCC) were not detected within the acceptable ranges using the Xpert MRSA NxG on the GeneXpert Dx System ([employer] Mage). This suggests the absence of MRSA in the patient specimen submitted for testing. This test is cleared by the U.S. Food and Drug Administration for clinical use and its performance characteristics have been verified by the [facility] at [facility]. This result does not rule out the presence of any other organisms. Rare false negative results may occur if MRSA is present at low concentrations with much higher concentrations of other organisms including MRSE or S. aureus with an empty SCC cassette. Comment: [VERIFIED DATE]08.17.22 Verified By:Shannon Smiley (Electronic Signature) Blood culture [[id number]] Collected: 08/14/22 2355 Lab Status: Final result [...] who have questions please contact the health pediatric acute care unit nurse that requested your imaging first. Abdomen 1 [...] who have questions please contact the health pediatric acute care unit nurse that requested your imaging first. Electronically signed by: Liliane Adams MD, [facility] ([phone]), at 08/15/2022 9:05 AM XR Chest One [...] who have questions please contact the health pediatric acute care unit nurse that requested your imaging first. Abdomen 1 [...] who have questions please contact the health pediatric acute care unit nurse that requested your imaging first. Chest One [...] who have questions please contact the health pediatric acute care unit nurse that requested your imaging first. Electronically signed by: Alfonso Adams MD, [facility] ([phone]), at 08/16/2022 10:[address] Head wo [...] who have questions please contact the health pediatric acute care unit nurse that requested your imaging first. Electronically signed by: Moustapha Correa MD, [facility] ([phone]), at 08/16/2022 11:19 PM XR Abdomen 1 [...] who have questions please contact the health pediatric acute care unit nurse that requested your imaging first. Head wo Contrast (Generic) (Exam End: 08/18/2022 3:14 PM) Impression No acute intracranial process. Thank you for letting us participate in the care of this patient. If you are a health care provider and have any questions regarding this report, please contact the number below. For patients who have questions please contact the health pediatric acute care unit nurse that requested your imaging first. Electronically signed by: Antonio Jordan MD, [facility] ([phone]), at 08/18/2022 3:18 PM XR Chest One [...] who have questions please contact the health pediatric acute care unit nurse that requested your imaging first. Electronically signed by: Alan De Guzman MD, [facility] ([phone]), at 08/19/2022 3:14 PM MRI Brain wo Contrast (Exam End: 08/19/2022 10:15 PM) Impression No acute infarction, mass or mass effect. Thank you for letting us participate in the care of this patient. If you are a health care provider and have any questions regarding this report, please contact the number below. For patients who have questions please contact the health pediatric acute care unit nurse that requested your imaging first. Electronically signed by: Jagdeep Lee MD, [facility] ([phone]), at 08/20/2022 3:34 AM XR Chest for Verifying Vascular Access PICC [...] who have questions please contact the health pediatric acute care unit nurse that requested your imaging first. Electronically signed by: Alan De Guzman MD, [facility] ([phone]), at 08/19/2022 4:[address] Hip w [...] who have questions please contact the health pediatric acute care unit nurse that requested your imaging first. Electronically signed by: Aicha Chowdhury MD, [facility] ([phone]), at 08/21/2022 9:[address] Chest w [...] who have questions please contact the health pediatric acute care unit nurse that requested your imaging first. Electronically signed by: Jagdeep Lee MD, [facility] ([phone]), at 08/21/2022 6:56 AM XR Hip 2-3 Views Left (Exam End: 08/22/2022 12:19 AM) Impression No radiographic evidence of infection. Thank you for letting us participate in the care of this patient. If you are a health care provider and have any questions regarding this report, please contact the number below. For patients who have questions please contact the health pediatric acute care unit nurse that requested your imaging first. Electronically signed by: Viktor Cervantes MD, [facility] ([phone]), at 08/22/2022 12:43 PM XR Pelvis (Generic) (Exam End: 08/22/2022 12:19 AM) Impression No radiographic evidence of infection status post left hip ORIF. Thank you for letting us participate in the care of this patient. If you are a health care provider and have any questions regarding this report, please contact the number below. For patients who have questions please contact the health pediatric acute care unit nurse that requested your imaging first. Electronically signed by: Richard Billings MD, [facility] ([phone]), at 08/22/2022 10:[address] Angiogram Coronary [...] who have questions please contact the health pediatric acute care unit nurse that requested your imaging first. Electronically signed by: Arlette Mays MD, [facility] ([phone]), at 08/27/2022 11:[address] Chest wo Contrast (Generic) (Exam End: 08/27/2022 8:58 AM) Impression Stable findings of multifocal pneumonia. No interval abnormality. Thank you for letting us participate in the care of this patient. If you are a health care provider and have any questions regarding this report, please contact the number below. For patients who have questions please contact the health pediatric acute care unit nurse that requested your imaging first. Electronically signed by: MINH QUIROGA MD, [facility] ([phone]), at 08/27/2022 10:48 AM XR Fluoro Barium [...] who have questions please contact the health pediatric acute care unit nurse that requested your imaging first. Electronically signed by: Aron Billings MD, [facility] ([phone]), at 08/31/2022 12:02 PM XR Fluoro Barium [...] who have questions please contact the health pediatric acute care unit nurse that requested your imaging first. Electronically signed by: Alfonso Adams MD, [facility] ([phone]), at 09/04/2022 10:57 AM XR Abdomen 1 [...] who have questions please contact the health pediatric acute care unit nurse that requested your imaging first. Electronically signed by: Jagdeep Lee MD, [facility] ([phone]), at 09/04/2022 10:35 PM XR Chest One View (Exam End: 09/04/2022 9:47 [...] who have questions please contact the health pediatric acute care unit nurse that requested your imaging first. Electronically signed by: Jagdeep Lee MD, [facility] ([phone]), at 09/04/2022 10:35 PM Medications: Scheduled: ??? metoprolol tartrate 12.5 mg Oral 2 times per day ??? buPROPion 100 mg Oral Daily ??? valproic acid 300 mg Oral Q6H ??? insulin lispro 1-4 Units Subcutaneous Q4H JARED ??? insulin glargine (Lantus;Semglee) (100 unit/mL) subcutaneous [...] Continuous: ??? tube feeding diet Stopped (09/05/22 06) PRN: diclofenac, barium sulfate, acetaminophen, ondansetron, iohexoL, [...] anemia,??GERD??c/b??esophagitis &??Farrell's esophagus, who was admitted to [facility] on 08/14/2022 (now on Hospital Day #22) [...] level 08/29. - level 25mg/L 08/29 - SHIP RUNNER to evaluate, Recommend NPO at present - [...] Code status: Attempt Cardiopulmonary Resuscitation - Inpatient Iwrin Jones MD Internal Medicine PGY1 Medicine Team: Jose Juan, Pager #[phone] Date: 09/05/2022 Associated attestation - Richard Pascal [...] of two midnights or is on the [facility] inpatient only procedure list (status C) [...] done in the recent past. * Elsie Erickson, RADIO INTERFERENCE TROUBLE SHOOTER - 09/05/2022 7:10 AM EDT Follow Up [...] &??Farrell's esophagus??presenting in transfer from [facility], suspected to be in cardiogenic shock and [...] of 110 mls/hr Monitoring:??Q4 Elsie Erickson APRN [facility] Endocrinology Diabetes Management Pager [phone] minutes of this 35 minute visit was spent with the patient in counseling on diabetes and treatment plan, reviewing all glucose and insulin data as well as relevant laboratory results with the patient, and coordination of care on the inpatient unit including nursing and primary team. * Feroz Portillo, DATABASE DESIGNER - 09/04/2022 1:50 PM EDT Physical Therapy [...] &??Farrell's esophagus??presenting in transfer from [facility], suspected to be in cardiogenic shock and [...] TE-F x 3 FEROZ PORTILLO PTA Pager: [phone] Physical Therapy Inpatient Rehabilitation Department * Micheline Long, SHIP RUNNER - 09/04/2022 9:48 AM EDT Speech-Language Pathology Modified Barium Swallow Re-Evaluation ?? Patient Profile:??Ishan Irving is a 62 year old female with a medical history notable for??recent L femoral neck fracture,??bipolar disorder, resolving medication-induced Parkinsonism, insulin-dependent diabetes mellitus,??hx of alcohol use disorder (reported to be in remission for 1.5 years)c/b chronic pancreatitis, iron deficiency anemia,??GERD??c/b??esophagitis &??Farrell's esophagus??presenting in transfer from [facility]??on 08/14/2022, suspected to be in cardiogenic shock and found to be in mixed shock with concern for stress cardiomyopathy.??SHIP RUNNER service was consulted to assess oropharyngeal swallow [...] Barium Swallow Study (08/31/2022) - Petty Mccullough, BRAYDON ??? Audible aspiration with thin liquids by [...] nutrition/hydration to provide nutrition during rehab course. SHIP RUNNER will f/u for ongoing swallow intervention and [...] dependent Cognitive-Linguistic Status: delayed processing per primary SHIP RUNNER; Pt presented today with a flat affect, [...] Presentation(s): (all mixed with Barium) Thin liquid [place] consistency thickened liquid Puree Regular consistency Oral [...] head in the, Thin liquid: pyriform sinuses [place] thick liquid: valleculae Puree: valleculae Regular: valleculae [...] penetration, via straw (sequential sips)- audible aspiration [place] thick liquids: via straw (single and sequential [...] of alertness and/or delirium Advanced age Education: SHIP RUNNER informed pt that she would return to talk to her about the results and updated recommendations. Results and recommendations relayed to Irwin Jones MD via secure chat. Addendum: SHIP RUNNER returned to pt's room at 1230 to [...] agreement with the treatment plan and informed SHIP RUNNER of her continued goal to resume consuming [...] this regurgitation was also witnessed by primary SHIP RUNNER Petty Mccullough in the most recent treatment session and was reported to the primary SHIP RUNNER to be consistent with her baseline for [...] with trials of nectar thick liquids with SHIP RUNNER only. As pt's mental status continues to improve, she may benefit from swallow exercises targeting the pharyngeal phase of the swallow. However, swallow safety and efficiency appear significantly impacted by the esophageal phase of the swallow. Pt will require alternative means of nutrition to meet nutritional needs. Pt would benefit from skilled SHIP RUNNER services to maximize swallow function and safety to address limitations as noted above. Primary SHIP RUNNER Petty Mccullough will continue to follow. Diagnosis: [...] in ongoing cognitive-linguistic evaluation. Plan: Therapy Frequency (SHIP RUNNER Eval): 3-5x/wk Pt unable to give informed agreement with plan at this time due to decreased MS. Total Minutes (Speech Language Pathology): 30 Thank you for this consult with this patient. Please feel free to page me with any questions or concerns. Micheline Long, MS, [facility]-SHIP RUNNER Speech-Language Pathologist Pager # [phone] * Alla [...] Tenisha Sandy MD PCP: Chris Stanley APRN ([phone]) No chief complaint on file. ID: Ishan Irving is a 62 y.o. 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.5 years) c/b chronic pancreatitis, iron deficiency anemia, ??GERD??c/b??esophagitis &??Farrell's esophagus, who was admitted to [facility] on 08/14/2022 (now on Hospital Day #21), and transferred to Hospital Medicine team from Cardiology on 08/30 for mixed shock with concern for stress cardiomyopathy (Takotsubo Cardiomyopathy). 24 HOUR EVENTS & SUBJECTIVE: Yesterday: - SHIP RUNNER evaluated, NPO, ice chips for pleasure recommended yesterday, plan for MBS without FT tomorrow - Palliative Care consulted and met with patient - OT met with patient, recommend acute rehab facility - Psych met with patient, recommended continuing once daily dosing of Bupropion IR - GI consulted and recommends patient continue working w/SHIP RUNNER, can consider PEG if inadequate improvement - [...] Gas): No results found for: PHART, PO2ART, DWI0EYM, FOQ1QED VBG (Venous Blood Gas): No results for input(s): PHVEN, JWS9IGD, PO2VEN, ICY1BYE, BEVEN, XTP6VSA in the last 72 hours. EKG: Lab [...] Date/Time Lower Respiratory Culture Bronchial Alveolar Lavage [[id number]] Collected: 08/21/221649 Lab Status: Final result Specimen: Bronchial Alveolar Lavage Updated: 08/23/22 0741 Lower Respiratory Culture Rare mixed bacterial morphotypes suggestive of normal upper respiratory wiley Gram Stain -- Few Neutrophils seen No squamous epithelial cells seen No microorganisms seen. Fungus Culture & Calc Stain Bronchial Alveolar Lavage [[id number]] (Abnormal) Collected: 08/21/221649 Lab Status: Preliminary result Specimen: Bronchial Alveolar Lavage Updated: 08/24/22 145 AFB culture Bronchial Alveolar Lavage [[id number]] Collected: 08/21/221649 Lab Status: Preliminary result Specimen: Bronchial Alveolar Lavage Updated: 08/24/22 221 Acid Fast Bacilli Culture -- No Acid Fast Bacilli isolated to date If active tuberculosis is suspected, the patient should be on AIRBORNE PRECAUTIONS. Call Infection Prevention for assistance if needed. Acid Fast Stain No Acid Fast Bacilli seen Fungus culture [[id number]] (Abnormal) Collected: 08/21/221649 Lab Status: Preliminary result Specimen: Bronchial Alveolar Lavage Updated: 08/24/22 145 Fungus Culture Rare Jacky albicans Calcofluor White Stain [[id number]] Collected: 08/21/221649 Lab Status: Final result Specimen: Bronchial Alveolar Lavage Updated: 08/21/22 2016 Calcofluor Stain Calcofluor White Preparation: Negative Lower Respiratory Culture Bronchial Alveolar Lavage [[id number]] Collected: 04/14/23 1645 Lab Status: Final result Specimen: Bronchial Alveolar Lavage Updated: 08/23/22 0741 Lower Respiratory Culture Rare mixed bacterial morphotypes suggestive of normal upper respiratory wiley Gram Stain -- Moderate Neutrophils seen No squamous epithelial cells seen No microorganisms seen. Fungus Culture & Calc Stain Bronchial Alveolar Lavage [[id number]] (Abnormal) Collected: 08/21/22 164 Lab Status: Preliminary result Specimen: Bronchial Alveolar Lavage Updated: 08/24/22 1453 AFB culture Bronchial Alveolar Lavage [[id number]] Collected: 08/21/221644 Lab Status: Preliminary result Specimen: Bronchial Alveolar Lavage Updated: 08/24/22 2221 Acid Fast Bacilli Culture -- No Acid Fast Bacilli isolated to date If active tuberculosis is suspected, the patient should be on AIRBORNE PRECAUTIONS. Call Infection Prevention for assistance if needed. Acid Fast Stain No Acid Fast Bacilli seen Fungus culture [[id number]] (Abnormal) Collected: 08/21/221644 Lab Status: Preliminary result Specimen: Bronchial Alveolar Lavage Updated: 08/24/22 1453 Fungus Culture Rare Jacky albicans Calcofluor White Stain [[id number]] Collected: 08/21/221644 Lab Status: Final result Specimen: Bronchial Alveolar Lavage Updated: 08/21/22 2017 Calcofluor Stain Calcofluor White Preparation: Negative Blood culture [[id number]] Collected: 08/19/22 1720 Lab Status: Final result Specimen: Blood Updated: 08/24/22 2301 Blood Culture No growth at 5 days. Lower Respiratory Culture Sputum Induced [[id number]] Collected: 08/19/22 1451 Lab Status: Final result Specimen: Sputum Induced Updated: 08/21/22 0948 Lower Respiratory Culture Rare mixed bacterial morphotypes suggestive of normal upper respiratory wiley Gram Stain -- Many Neutrophils seen Few squamous epithelial cells seen No microorganisms seen. Blood culture [[id number]] Collected: 08/19/22 1330 Lab Status: Final result Specimen: Blood Updated: 08/24/22 1501 Blood Culture No growth at 5 days. Legionella Urinary Antigen [[id number]] Collected: 08/18/22 1013 Lab Status: Final result [...] Catheter Urine; Other; sepsis, bacteria on UA [[id number]] Collected: 08/15/22 1225 Lab Status: Final result Specimen: Indwelling Catheter Urine Updated: 08/16/22 0804 Urine Culture 1,000-9,000 cfu/ml Insignificant growth COVID-19 PCR [[id number]] Collected: 08/15/22 1150 Lab Status: Final result [...] using the Simplexa COVID-19 Direct Assay by [employer] as authorized by the FDA issued Emergency [...] Department of Pathology and Laboratory Medicine at [facility], certified under the Clinical Laboratory Improvement Amendments [...] fact sheets at the following FDA website: https://www.fda.gov/medical-devices/ctqkempwrba-xoecltz-0969-lzsnc-10-gulzgqmvt- reu-wmrjnnkdlyeohs-dgkykah-devices/acqan-ykhmugwmhoa-jrzq SARS-CoV-2 Source INNER DIAMETER GRINDER TOOL Swab Lower Respiratory Culture Sputum Induced [[id number]] Collected: 08/15/22 0740 Lab Status: Final result Specimen: Sputum Induced Updated: 08/17/22 1015 Lower Respiratory Culture Rare normal upper respiratory wiley Gram Stain -- Many Neutrophils Few squamous epithelial cells Rare mixed bacterial morphotypes suggestive of normal upper respiratory wiley Blood culture [[id number]] Collected: 08/15/22 0110 Lab Status: Final result Specimen: Blood Updated: 08/20/22 0701 Blood Culture No growth at 5 days. MRSA PCR Screen ([facility]/CGP/APD/NLH) [[id number]] Collected: 08/15/22 0050 Lab Status: Final result Specimen: Nasopharyngeal Swab Updated: 08/17/22 1419 MRSA Result Negative MRSA Interp -- Methicillin-resistant Staphylococcus aureus (MRSA) is NOT DETECTED The MRSA target DNA sequences (mec and SCC) were not detected within the acceptable ranges using the Xpert MRSA NxG on the GeneXpert Dx System (Page Mage). This suggests the absence of MRSA in the patient specimen submitted for testing. This test is cleared by the U.S. Food and Drug Administration for clinical use and its performance characteristics have been verified by the [facility] at [facility]. This result does not rule out the presence of any other organisms. Rare false negative results may occur if MRSA is present at low concentrations with much higher concentrations of other organisms including MRSE or S. aureus with an empty SCC cassette. Comment: [VERIFIED DATE]08.17.22 Verified By:Shannon Smiley (Electronic Signature) Blood culture [[id number]] Collected: 08/14/22 3781 Lab Status: Final result Specimen: Blood Updated: [...] who have questions please contact the health pediatric acute care unit nurse that requested your imaging first. Abdomen 1 [...] who have questions please contact the health pediatric acute care unit nurse that requested your imaging first. Electronically signed by: Liliane Adams MD, [facility] ([phone]), at 08/15/2022 9:05 AM XR Chest One [...] who have questions please contact the health pediatric acute care unit nurse that requested your imaging first. Abdomen 1 [...] who have questions please contact the health pediatric acute care unit nurse that requested your imaging first. Chest One [...] who have questions please contact the health pediatric acute care unit nurse that requested your imaging first. Electronically signed by: Alfonso Adams MD, [facility] ([phone]), at 08/16/2022 10:[address] Head wo [...] who have questions please contact the health pediatric acute care unit nurse that requested your imaging first. Electronically signed by: Moustapha Correa MD, [facility] ([phone]), at 08/16/2022 11:19 PM XR Abdomen 1 [...] who have questions please contact the health pediatric acute care unit nurse that requested your imaging first. Head wo Contrast (Generic) (Exam End: 08/18/2022 3:14 PM) Impression No acute intracranial process. Thank you for letting us participate in the care of this patient. If you are a health care provider and have any questions regarding this report, please contact the number below. For patients who have questions please contact the health pediatric acute care unit nurse that requested your imaging first. Electronically signed by: Antonio Jordan MD, [facility] ([phone]), at 08/18/2022 3:18 PM XR Chest One [...] who have questions please contact the health pediatric acute care unit nurse that requested your imaging first. Electronically signed by: Alan De Guzman MD, [facility] ([phone]), at 08/19/2022 3:14 PM MRI Brain wo Contrast (Exam End: 08/19/2022 10:15 PM) Impression No acute infarction, mass or mass effect. Thank you for letting us participate in the care of this patient. If you are a health care provider and have any questions regarding this report, please contact the number below. For patients who have questions please contact the health pediatric acute care unit nurse that requested your imaging first. Electronically signed by: Jagdeep Lee MD, [facility] ([phone]), at 08/20/2022 3:34 AM XR Chest for Verifying Vascular Access PICC [...] who have questions please contact the health pediatric acute care unit nurse that requested your imaging first. Electronically signed by: Alan De Guzman MD, [facility] ([phone]), at 08/19/2022 4:[address] Hip w [...] who have questions please contact the health pediatric acute care unit nurse that requested your imaging first. Electronically signed by: Aicha Chowdhury MD, [facility] ([phone]), at 08/21/2022 9:[address] Chest w [...] who have questions please contact the health pediatric acute care unit nurse that requested your imaging first. Electronically signed by: Jagdeep Lee MD, [facility] ([phone]), at 08/21/2022 6:56 AM XR Hip 2-3 Views Left (Exam End: 08/22/2022 12:19 AM) Impression No radiographic evidence of infection. Thank you for letting us participate in the care of this patient. If you are a health care provider and have any questions regarding this report, please contact the number below. For patients who have questions please contact the health pediatric acute care unit nurse that requested your imaging first. Electronically signed by: Viktor Cervantes MD, [facility] ([phone]), at 08/22/2022 12:43 PM XR Pelvis (Generic) (Exam End: 08/22/2022 12:19 AM) Impression No radiographic evidence of infection status post left hip ORIF. Thank you for letting us participate in the care of this patient. If you are a health care provider and have any questions regarding this report, please contact the number below. For patients who have questions please contact the health pediatric acute care unit nurse that requested your imaging first. Electronically signed by: Richard Billings MD, [facility] ([phone]), at 08/22/2022 10:[address] Angiogram Coronary [...] who have questions please contact the health pediatric acute care unit nurse that requested your imaging first. Electronically signed by: Arlette Mays MD, [facility] ([phone]), at 08/27/2022 11:[address] Chest wo Contrast (Generic) (Exam End: 08/27/2022 8:58 AM) Impression Stable findings of multifocal pneumonia. No interval abnormality. Thank you for letting us participate in the care of this patient. If you are a health care provider and have any questions regarding this report, please contact the number below. For patients who have questions please contact the health pediatric acute care unit nurse that requested your imaging first. Electronically signed by: MINH QUIROGA MD, [facility] ([phone]), at 08/27/2022 10:48 AM XR Fluoro Barium [...] who have questions please contact the health pediatric acute care unit nurse that requested your imaging first. Electronically signed by: Aron Billings MD, [facility] ([phone]), at 08/31/2022 12:02 PM Medications: Scheduled: ??? [...] ??? insulin lispro 1-5 Units Subcutaneous Q4H JARED ??? ergocalciferoL (vitamin D2) 50,000 Units Per [...] BID ??? acetaminophen 1,000 mg Oral Q8H JARED ??? thiamine 100 mg Intravenous Daily Continuous: [...] anemia,??GERD??c/b??esophagitis &??Farrell's esophagus, who was admitted to [facility] on 08/14/2022 (now on Hospital Day #21) [...] - Continue therapy with PT, OT, and SHIP RUNNER - Diet pending MBS results milvia Neuro: # Bipolar Disorder - Depakote 300 mg oral liquid per Dobhoff tube q6hr. - Continue Seroquel 100mg nightly - Will check VPA trough level 08/29. - level 25mg/L 08/29 - SHIP RUNNER to evaluate, Recommend NPO at present - [...] Medicine PGY1 Medicine Team: Jose Juan, Pager #[phone] Date: 09/04/2022 Associated attestation - Tenisha Sandy [...] of two midnights or is on the [facility] inpatient only procedure list (status C) [...] improved with use of wellbutrin. Will continue SHIP RUNNER and consider trial ofnectar thick with speech. [...] &??Farrell's esophagus??presenting in transfer from [facility], suspected to be in cardiogenic shock and [...] OT arrival. Agrees to get OOB to [facility]. ?? States she has a fungal infection. Skin at gavin-area inspected. Pt red in gavin-area and has yunior buttocks. Nurse aware. ?? Supine to sit at EOB under supervision with HOB elevated to 45* for aspiration precautions ?? Independent sitting balance at EOB ?? Donned both slipper socks independently with legs on bed ?? [facility] brought bedside bed for stand pivot transfer. [...] navigate with FWW for stand-step transfer to [facility]. I need to sit. I'm going to fall? Pt sat on commode quickly. ?? Sit to stand attempted twice from [facility]. Pt immediately sitting out of fear. [...] 2-4 times/wk Total Minutes, Occupational Therapy: 44 ([phone] 3 TA) Pager: [phone] Alicia Cook OT 09/03/2022 Occupational Therapy Rehabilitation Department * Shashi Young - 09/03/2022 10:36 AM EDT Rocket Engine Mechanic Encounter Note Patient Name: Ishan Irving : [id number] MR#: [id number] Admit Date: 08/14/2022 11:11 PM Hospital Day [...] hands. Patient and her expressed appreciation. Follow-up: [employer] will continue to offer support to patient as needed. Time in Direct Care: 15 Shashi Young 09/03/2022 * Nancy Ernst, RD - 09/03/2022 8:27 AM EDT Nutrition Progress Note Ishan Irving is a 62 y.o.??female??with h/o bipolar, DM, EtOH, esophagitis, who presented to [facility] 3 days ago after being found unresponsive at home.?Patient found to have likely pneumonia +/- aspiration, newly reduced EF. Reason for Assessment: Follow-up, Tube Feeding Nutrition Recommendations: Enteral Nutrition: Cyclic Peptamen AF at 110ml/hr for 12hrs from [id number] At goal, this will provide: Peptamen AF Total Volume Per Day: 1320 mL Scoops of Protein: 0 Calories per Day: 1584 Protein per Day: 100 g Free Water mL per Day: 1072 % RDI: 106 % Monitor hydration status on above TFs as they are concentrated. Pt may need additional fluids depending on IVFs, med flushes, p.o. Intake, etc. Diet per SHIP RUNNER Monitor weight to trend Monitor BM. Goal of one every 24-48hrs while on EN Monitor lytes. Replete as indicated I was able to discuss plan with provider Murphy Jones MD. Current Nutrition Regimen: Active Orders Diet Sips and Chips (Give Meds) Frequency: Effective Now Number of Occurrences: Until Specified All Active TF Orders: Tubefeeding Orders (From admission, onward) Start Dose/Rate Route Frequency Ordered Stop 08/31/22 1745 tube feeding diet 1,320 mL 110 mL/hr Per NG tube Cyclic-(Tube feed) 08/31/22 1651 Cyclic Peptamen AF at 110ml/hr for 12hrs from 4787-7851 Average tube feeding provision over past 3 [...] of this encounter: 69.9 kg (154 lb). [place] Body Weight (IBW) (kg): 45.45 Usual Body [...] 08/25 r/t liquid tylenol, d/c per this verse writer's request as liquid tylenol acts as [...] up while inpatient Nancy Ernst RD Pager #:[phone] * Petty Mccullough, SHIP RUNNER - 09/03/2022 8:20 AM EDT Speech Therapy Note Patient Profile:??Ishan Irving is a 62 year old female with a medical history notable for??recent L femoral neck fracture,??bipolar disorder, resolving medication-induced Parkinsonism, insulin-dependent diabetes mellitus,??hx of alcohol use disorder (reported to be in remission for 1.5 years)c/b chronic pancreatitis, iron deficiency anemia,??GERD??c/b??esophagitis &??Farrell's esophagus??presenting in transfer from [facility]??on 08/14/2022, suspected to be in cardiogenic shock and found to be in mixed shock with concern for stress cardiomyopathy.??SHIP RUNNER following for swallow, cognitive tx. MBS completed [...] chair for session with nursing assist. Spouse nAtonio at bedside. Objective: Pt seen for dysphagia [...] Pt was seen today for a follow-up SHIP RUNNER visit. ??? Oropharyngeal swallow function is reportedly [...] in ongoing cognitive-linguistic evaluation. Plan: Therapy Frequency (SHIP RUNNER Eval): 3-5 times/wk Pt./family are in agreement with treatment plan. Total Minutes (Speech Language Pathology): 40 Petty Mccullough M.S., [facility]-SHIP RUNNER Inpatient Speech-Pathology Pager: [phone] * Irwin Jones MD - 09/03/2022 7:13 AM EDT Images from the original note were not included. Inpatient Hospital Medicine Progress Note 09/03/2022 Patient Name: ISHAN IRVING Date of : 1960 Age: 62 y.o. Hospital Admit Date: 08/14/2022 Hospital Day: 20 Inpatient Attending: Tenisha Sandy MD PCP: Chris Stanley APRN ([phone]) No chief complaint on file. ID: Ishan Irving is a 62 y.o. 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.5 years) c/b chronic pancreatitis, iron deficiency anemia, ??GERD??c/b??esophagitis &??Farrell's esophagus, who was admitted to [facility] on 08/14/2022 (now on Hospital Day #20), and transferred to Hospital Medicine team from Cardiology on 08/30 for mixed shock with concern for stress cardiomyopathy (Takotsubo Cardiomyopathy). 24 HOUR EVENTS & SUBJECTIVE: Yesterday: - SHIP RUNNER evaluated, NPO, ice chips for pleasure recommended - Palliative Care consulted and met with patient - PT met with patient, recommend acute rehab versus swing bed when medically ready for discharge - Psych met with patient, recommended once daily dosing of Bupropion IR - GI consulted and recommends patient continue working w/SHIP RUNNER, can consider PEG if inadequate improvement Overnight: [...] last 3 completed shifts: In: 2085 [I.V.:60; NG/GT:1815] Out: 1974 [Urine:1974] Last Bowel Movement: 09/02/22 [...] no rashes LABS: CBC: Recent Labs 09/03/22 0040 09/02/22 0105 09/01/22 0210 08/31/22 0430 08/30/22 0405 WBC 5.1 5.9 5.5 6.7 7.0 HGB 8.4* 8.3* 8.7* 8.7* 8.4* HCT 27.1* 27.7* 28.5* 29.2* 27.8* PLATELET 305 344 361* 330 407* NEUTROABS 2.19 2.83 2.52 4.03 4.26 Retic count yesterday: 2.2% (high normal), Retic hgb 22.9% (low), immature Retic 45% (very high), absolute 0.08 (normal range) Chemistry: Recent Labs 09/03/22 0040 09/02/22 0105 09/01/22 0210 08/30/22 0405 08/29/22 0930 NA 138 136 140 140 137 K 4.1 4.4 4.6 4.1 4.4 CL 102 100 104 104 103 CO2 29 30 29 28 25 BUN 28* 30* 29* 19* 19* CREATININE 0.49* 0.52* 0.51* 0.50* 0.47* GLUCOSE 107 114 86 133 289* ANIONGAP 7 6 7 8 9 Recent Labs 09/03/22 0040 09/02/22 0105 09/01/22 0210 08/31/22 0430 08/30/22 0405 08/29/22 0930 CALCIUM [...] Gas): No results found for: PHART, PO2ART, DAK2BTA, JMA4DTN VBG (Venous Blood Gas): No results for input(s): PHVEN, FBT3WZS, PO2VEN, RWV9ODZ, BEVEN, KYL4UJX in the last 72 hours. EKG: Lab [...] Date/Time Lower Respiratory Culture Bronchial Alveolar Lavage [[id number]] Collected: 08/21/221649 Lab Status: Final result Specimen: Bronchial Alveolar Lavage Updated: 08/23/22 0741 Lower Respiratory Culture Rare mixed bacterial morphotypes suggestive of normal upper respiratory wiley Gram Stain -- Few Neutrophils seen No squamous epithelial cells seen No microorganisms seen. Fungus Culture & Calc Stain Bronchial Alveolar Lavage [[id number]] (Abnormal) Collected: 08/21/221649 Lab Status: Preliminary result Specimen: Bronchial Alveolar Lavage Updated: 08/24/22 145 AFB culture Bronchial Alveolar Lavage [[id number]] Collected: 08/21/221649 Lab Status: Preliminary result Specimen: Bronchial Alveolar Lavage Updated: 08/24/222218 Acid Fast Bacilli Culture -- No Acid Fast Bacilli isolated to date If active tuberculosis is suspected, the patient should be on AIRBORNE PRECAUTIONS. Call Infection Prevention for assistance if needed. Acid Fast Stain No Acid Fast Bacilli seen Fungus culture [[id number]] (Abnormal) Collected: 08/21/221649 Lab Status: Preliminary result Specimen: Bronchial Alveolar Lavage Updated: 08/24/22 145 Fungus Culture Rare Jacky albicans Calcofluor White Stain [[id number]] Collected: 08/21/221649 Lab Status: Final result Specimen: Bronchial Alveolar Lavage Updated: 08/21/222015 Calcofluor Stain Calcofluor White Preparation: Negative Lower Respiratory Culture Bronchial Alveolar Lavage [[id number]] Collected: 08/21/221644 Lab Status: Final result Specimen: Bronchial Alveolar Lavage Updated: 08/23/22 0741 Lower Respiratory Culture Rare mixed bacterial morphotypes suggestive of normal upper respiratory wiley Gram Stain -- Moderate Neutrophils seen No squamous epithelial cells seen No microorganisms seen. Fungus Culture & Calc Stain Bronchial Alveolar Lavage [[id number]] (Abnormal) Collected: 08/21/221644 Lab Status: Preliminary result Specimen: Bronchial Alveolar Lavage Updated: 08/24/22 1453 AFB culture Bronchial Alveolar Lavage [[id number]] Collected: 08/21/221644 Lab Status: Preliminary result Specimen: Bronchial Alveolar Lavage Updated: 08/24/22 222 Acid Fast Bacilli Culture -- No Acid Fast Bacilli isolated to date If active tuberculosis is suspected, the patient should be on AIRBORNE PRECAUTIONS. Call Infection Prevention for assistance if needed. Acid Fast Stain No Acid Fast Bacilli seen Fungus culture [[id number]] (Abnormal) Collected: 08/21/221644 Lab Status: Preliminary result Specimen: Bronchial Alveolar Lavage Updated: 08/24/22 1453 Fungus Culture Rare Jacky albicans Calcofluor White Stain [[id number]] Collected: 08/21/221644 Lab Status: Final result Specimen: Bronchial Alveolar Lavage Updated: 08/21/22 2017 Calcofluor Stain Calcofluor White Preparation: Negative Blood culture [[id number]] Collected: 08/19/22 1720 Lab Status: Final result Specimen: Blood Updated: 08/24/22 2301 Blood Culture No growth at 5 days. Lower Respiratory Culture Sputum Induced [[id number]] Collected: 08/19/22 1451 Lab Status: Final result Specimen: Sputum Induced Updated: 08/21/22 0948 Lower Respiratory Culture Rare mixed bacterial morphotypes suggestive of normal upper respiratory wiley Gram Stain -- Many Neutrophils seen Few squamous epithelial cells seen No microorganisms seen. Blood culture [[id number]] Collected: 08/19/22 1330 Lab Status: Final result Specimen: Blood Updated: 08/24/22 1501 Blood Culture No growth at 5 days. Legionella Urinary Antigen [[id number]] Collected: 08/18/22 1013 Lab Status: Final result [...] Catheter Urine; Other; sepsis, bacteria on UA [[id number]] Collected: 08/15/22 1225 Lab Status: Final result Specimen: Indwelling Catheter Urine Updated: 08/16/22 0804 Urine Culture 1,000-9,000 cfu/ml Insignificant growth COVID-19 PCR [[id number]] Collected: 08/15/22 1150 Lab Status: Final result [...] using the Simplexa COVID-19 Direct Assay by [employer] as authorized by the FDA issued Emergency [...] Department of Pathology and Laboratory Medicine at [facility], certified under the Clinical Laboratory Improvement Amendments [...] fact sheets at the following FDA website: https://www.fda.gov/medical-devices/pzyxgiijros-vjlnpbp-5787-ftykt-72-fkimweivh- jaw-gtstbhvokjtnzp-llyghim-devices/bxqvb-weioflnqnax-lxfa SARS-CoV-2 Source INNER DIAMETER GRINDER TOOL Swab Lower Respiratory Culture Sputum Induced [[id number]] Collected: 08/15/22 0740 Lab Status: Final result Specimen: Sputum Induced Updated: 08/17/22 1015 Lower Respiratory Culture Rare normal upper respiratory wiley Gram Stain -- Many Neutrophils Few squamous epithelial cells Rare mixed bacterial morphotypes suggestive of normal upper respiratory wiley Blood culture [[id number]] Collected: 08/15/22 0110 Lab Status: Final result Specimen: Blood Updated: 08/20/22 0701 Blood Culture No growth at 5 days. MRSA PCR Screen ([facility]/CGP/APD/NLH) [[id number]] Collected: 08/15/22 0050 Lab Status: Final result Specimen: Nasopharyngeal Swab Updated: 08/17/22 1419 MRSA Result Negative MRSA Interp -- Methicillin-resistant Staphylococcus aureus (MRSA) is NOT DETECTED The MRSA target DNA sequences (mec and SCC) were not detected within the acceptable ranges using the Xpert MRSA NxG on the GeneXpert Dx System ([employer]). This suggests the absence of MRSA in the patient specimen submitted for testing. This test is cleared by the U.S. Food and Drug Administration for clinical use and its performance characteristics have been verified by the [facility] at [facility]. This result does not rule out the presence of any other organisms. Rare false negative results may occur if MRSA is present at low concentrations with much higher concentrations of other organisms including MRSE or S. aureus with an empty SCC cassette. Comment: [VERIFIED DATE]08.17.22 Verified By:Shannon Smiley (Electronic Signature) Blood culture [[id number]] Collected: 08/14/22 9627 Lab Status: Final result Specimen: Blood Updated: [...] who have questions please contact the health pediatric acute care unit nurse that requested your imaging first. Abdomen 1 [...] who have questions please contact the health pediatric acute care unit nurse that requested your imaging first. Electronically signed by: Liliane Adams MD, [facility] ([phone]), at 08/15/2022 9:05 AM XR Chest One [...] who have questions please contact the health pediatric acute care unit nurse that requested your imaging first. Abdomen 1 [...] who have questions please contact the health pediatric acute care unit nurse that requested your imaging first. Chest One [...] who have questions please contact the health pediatric acute care unit nurse that requested your imaging first. Electronically signed by: Alfonso Adams MD, [facility] ([phone]), at 08/16/2022 10:[address] Head wo [...] who have questions please contact the health pediatric acute care unit nurse that requested your imaging first. Electronically signed by: Moustapha Correa MD, [facility] ([phone]), at 08/16/2022 11:19 PM XR Abdomen 1 [...] who have questions please contact the health pediatric acute care unit nurse that requested your imaging first. Head wo Contrast (Generic) (Exam End: 08/18/2022 3:14 PM) Impression No acute intracranial process. Thank you for letting us participate in the care of this patient. If you are a health care provider and have any questions regarding this report, please contact the number below. For patients who have questions please contact the health pediatric acute care unit nurse that requested your imaging first. Electronically signed by: Antonio Jordan MD, [facility] ([phone]), at 08/18/2022 3:18 PM XR Chest One [...] who have questions please contact the health pediatric acute care unit nurse that requested your imaging first. Electronically signed by: Alan De Guzman MD, [facility] ([phone]), at 08/19/2022 3:14 PM MRI Brain wo Contrast (Exam End: 08/19/2022 10:15 PM) Impression No acute infarction, mass or mass effect. Thank you for letting us participate in the care of this patient. If you are a health care provider and have any questions regarding this report, please contact the number below. For patients who have questions please contact the health pediatric acute care unit nurse that requested your imaging first. Electronically signed by: Jagdeep Lee MD, [facility] ([phone]), at 08/20/2022 3:34 AM XR Chest for Verifying Vascular Access PICC [...] who have questions please contact the health pediatric acute care unit nurse that requested your imaging first. Electronically signed by: Alan De Guzman MD, [facility] ([phone]), at 08/19/2022 4:[address] Hip w [...] who have questions please contact the health pediatric acute care unit nurse that requested your imaging first. Electronically signed by: Aicha Chowdhury MD, [facility] ([phone]), at 08/21/2022 9:[address] Chest w [...] who have questions please contact the health pediatric acute care unit nurse that requested your imaging first. Electronically signed by: Jagdeep Lee MD, [facility] ([phone]), at 08/21/2022 6:56 AM XR Hip 2-3 Views Left (Exam End: 08/22/2022 12:19 AM) Impression No radiographic evidence of infection. Thank you for letting us participate in the care of this patient. If you are a health care provider and have any questions regarding this report, please contact the number below. For patients who have questions please contact the health pediatric acute care unit nurse that requested your imaging first. Electronically signed by: Viktor Cervantes MD, [facility] ([phone]), at 08/22/2022 12:43 PM XR Pelvis (Generic) (Exam End: 08/22/2022 12:19 AM) Impression No radiographic evidence of infection status post left hip ORIF. Thank you for letting us participate in the care of this patient. If you are a health care provider and have any questions regarding this report, please contact the number below. For patients who have questions please contact the health pediatric acute care unit nurse that requested your imaging first. Electronically signed by: Richard Billings MD, [facility] ([phone]), at 08/22/2022 10:[address] Angiogram Coronary [...] who have questions please contact the health pediatric acute care unit nurse that requested your imaging first. Electronically signed by: Arlette Mays MD, [facility] ([phone]), at 08/27/2022 11:[address] Chest wo Contrast (Generic) (Exam End: 08/27/2022 8:58 AM) Impression Stable findings of multifocal pneumonia. No interval abnormality. Thank you for letting us participate in the care of this patient. If you are a health care provider and have any questions regarding this report, please contact the number below. For patients who have questions please contact the health pediatric acute care unit nurse that requested your imaging first. Electronically signed by: MINH QUIROGA MD, [facility] ([phone]), at 08/27/2022 10:48 AM XR Fluoro Barium [...] who have questions please contact the health pediatric acute care unit nurse that requested your imaging first. Electronically signed by: Aron Billings MD, [facility] ([phone]), at 08/31/2022 12:02 PM Medications: Scheduled: ??? [...] ??? insulin lispro 1-5 Units Subcutaneous Q4H JARED ??? ergocalciferoL (vitamin D2) 50,000 Units Per [...] BID ??? acetaminophen 1,000 mg Oral Q8H JARED ??? thiamine 100 mg Intravenous Daily Continuous: [...] anemia,??GERD??c/b??esophagitis &??Farrell's esophagus, who was admitted to [facility] on 08/14/2022 (now on Hospital Day #20) [...] for a percutaneous feeding tube, discussed with SHIP RUNNER and plan for MBS tomorrow, will remove dobhoff prior to minimize other factors worsening dysphagia. Today's plan: - Discuss wellbutrin dose with Pyjared - Consider dose of IV iron for additional supplementation to low stores - Ongoing therapy with PT, OT, and SHIP RUNNER - Venofer x 1 to supplement oral iron for iron deficiency anemia milvia Neuro: # Bipolar Disorder - Depakote 300 mg oral liquid per Dobhoff tube q6hr. - Continue Seroquel 100mg nightly - Will check VPA trough level 08/29. - level 25mg/L 08/29 - SHIP RUNNER to evaluate, Recommend NPO at present - [...] Medicine PGY1 Medicine Team: Jose Juan, Pager #[phone] Date: 09/03/2022 Associated attestation - Tenisha Sandy [...] of two midnights or is on the [facility] inpatient only procedure list (status C) due to: acute metabolic encephalopathy,management of nstemi/stress cardiomyopathy, s/p treatment of sepsis. Also management of IV fluids as patient is not able to tolerate any PO intake. Awaiting MBS. * Feroz Portillo, DATABASE DESIGNER - 09/02/2022 3:10 PM EDT Physical Therapy [...] &??Farrell's esophagus??presenting in transfer from [facility], suspected to be in cardiogenic shock and [...] TE-F x 3 FEROZ PORTILLO PTA Pager: [phone] Physical Therapy Inpatient Rehabilitation Department * Tanya Figueroa, SHIP RUNNER - 09/02/2022 2:09 PM EDT Speech Therapy Note Patient Profile:??Ishan Irving is a 62 year old female with a medical history notable for??recent L femoral neck fracture,??bipolar disorder, resolving medication-induced Parkinsonism, insulin-dependent diabetes mellitus,??hx of alcohol use disorder (reported to be in remission for 1.5 years)c/b chronic pancreatitis, iron deficiency anemia,??GERD??c/b??esophagitis &??Farrell's esophagus??presenting in transfer from [facility]??on 08/14/2022, suspected to be in cardiogenic shock and found to be in mixed shock with concern for stress cardiomyopathy.??SHIP RUNNER following for swallow, cognitive tx. MBS completed 08/31/22 noting moderate-severe oropharyngeal dysphagia. Lines/Drains: DHT(08/17/22), PICC Precautions: Fall risk, Aspiration risk, Delirium and High risk skin breakdown Continuous Interventions: ??? tube feeding diet 110 mL/hr at 09/02/22 1200 Interval History: No significant changes. Per Resident notes, - PT evaluated and recommends swing bed - GI consulted and recommends patient continue working w/SHIP RUNNER, can consider PEG if inadequate improvement Subjective: [...] puzzle, joining dot drawings. ?? Attempts to [place] words using word soto puzzles - denies any assistance form SHIP RUNNER during this task. Searches 9 words independently [...] nutrition/hydration to provide nutrition during rehab course. SHIP RUNNER will f/u for ongoing swallow and cognitive intervention. ?? Barium swallow (esophagram) will be helpful at later date (due to hx of Farrell's esophagus/GERD), however Pt is at high potential for aspiration during study d/t positioning requirements for this test. Likely will need a repeat MBS prior to ordering of barium swallow. ?? Pt would benefit from skilled SHIP RUNNER services to maximize swallow function and safety [...] in ongoing cognitive-linguistic evaluation. Plan: Therapy Frequency (SHIP RUNNER Eval): 2-4 times/wk Pt./family are in agreement with treatment plan. Total Minutes (Speech Language Pathology): 24 Thank you for this consult with this patient. Please feel free to page me with any questions or concerns. Tanya Figueroa, , SHIP RUNNER-CF Pager #[phone] Speech Language Pathology Inpatient Rehabilitation Medicine * Ghulam Torres MD - 09/02/2022 12:10 PM EDT Palliative super quick note Ran to catch antonio at bedside with Ishan. Introduced myself and palliative. Family welcoming to the support and visit. Antonio has to get home to [facility] to take care of their house, [...] patient and to make a call to [employer] to submit claim for health related reasons. Patient gave verbal permission for me to speak with [employer] and we proceeded to walk through the process together. Patients will provide this verse writer with documentation for the physician to [...] Tenisha Sandy MD PCP: Chris Stanley APRN ([phone]) No chief complaint on file. ID: Ishan Irving is a 62 y.o. 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.5 years) c/b chronic pancreatitis, iron deficiency anemia, ??GERD??c/b??esophagitis &??Farrell's esophagus, who was admitted to [facility] on 08/14/2022 (now on Hospital Day #19), and transferred to Hospital Medicine team from Cardiology on 08/30 for mixed shock with concern for stress cardiomyopathy (Takotsubo Cardiomyopathy). 24 HOUR EVENTS & SUBJECTIVE: Yesterday: - Psychiatry consult, recommend starting Wellbutrin for presumed depression versus hypoactive delirium - PT evaluated and recommends swing bed - GI consulted and recommends patient continue working w/SHIP RUNNER, can consider PEG if inadequate improvement Overnight: [...] performing the required maintenance of it if Ishan were to have one placed. Patient's in [...] Gas): No results found for: PHART, PO2ART, THI1JPX, RIA5WJS VBG (Venous Blood Gas): No results for input(s): PHVEN, NPZ5WRH, PO2VEN, SEL1LEB, BEVEN, JZT9UGJ in the last 72 hours. EKG: Lab [...] Date/Time Lower Respiratory Culture Bronchial Alveolar Lavage [[id number]] Collected: 08/21/221649 Lab Status: Final result Specimen: Bronchial Alveolar Lavage Updated: 08/23/22740 Lower Respiratory Culture Rare mixed bacterial morphotypes suggestive of normal upper respiratory wiley Gram Stain -- Few Neutrophils seen No squamous epithelial cells seen No microorganisms seen. Fungus Culture & Calc Stain Bronchial Alveolar Lavage [[id number]] (Abnormal) Collected: 08/21/221649 Lab Status: Preliminary result Specimen: Bronchial Alveolar Lavage Updated: 08/24/22 145 AFB culture Bronchial Alveolar Lavage [[id number]] Collected: 08/21/221649 Lab Status: Preliminary result Specimen: Bronchial Alveolar Lavage Updated: 08/24/222218 Acid Fast Bacilli Culture -- No Acid Fast Bacilli isolated to date If active tuberculosis is suspected, the patient should be on AIRBORNE PRECAUTIONS. Call Infection Prevention for assistance if needed. Acid Fast Stain No Acid Fast Bacilli seen Fungus culture [[id number]] (Abnormal) Collected: 08/21/221649 Lab Status: Preliminary result Specimen: Bronchial Alveolar Lavage Updated: 08/24/22 145 Fungus Culture Rare Jacky albicans Calcofluor White Stain [[id number]] Collected: 08/21/221649 Lab Status: Final result Specimen: Bronchial Alveolar Lavage Updated: 08/21/22 2016 Calcofluor Stain Calcofluor White Preparation: Negative Lower Respiratory Culture Bronchial Alveolar Lavage [[id number]] Collected: 08/21/221644 Lab Status: Final result Specimen: Bronchial Alveolar Lavage Updated: 08/23/22740 Lower Respiratory Culture Rare mixed bacterial morphotypes suggestive of normal upper respiratory wiley Gram Stain -- Moderate Neutrophils seen No squamous epithelial cells seen No microorganisms seen. Fungus Culture & Calc Stain Bronchial Alveolar Lavage [[id number]] (Abnormal) Collected: 08/21/221644 Lab Status: Preliminary result Specimen: Bronchial Alveolar Lavage Updated: 08/24/22 1453 AFB culture Bronchial Alveolar Lavage [[id number]] Collected: 08/21/221644 Lab Status: Preliminary result Specimen: Bronchial Alveolar Lavage Updated: 08/24/22 2221 Acid Fast Bacilli Culture -- No Acid Fast Bacilli isolated to date If active tuberculosis is suspected, the patient should be on AIRBORNE PRECAUTIONS. Call Infection Prevention for assistance if needed. Acid Fast Stain No Acid Fast Bacilli seen Fungus culture [[id number]] (Abnormal) Collected: 08/21/221644 Lab Status: Preliminary result Specimen: Bronchial Alveolar Lavage Updated: 08/24/22 145 Fungus Culture Rare Jacky albicans Calcofluor White Stain [[id number]] Collected: 08/21/221644 Lab Status: Final result Specimen: Bronchial Alveolar Lavage Updated: 08/21/22 2017 Calcofluor Stain Calcofluor White Preparation: Negative Blood culture [[id number]] Collected: 08/19/22 1720 Lab Status: Final result Specimen: Blood Updated: 08/24/22 2301 Blood Culture No growth at 5 days. Lower Respiratory Culture Sputum Induced [[id number]] Collected: 08/19/22 1451 Lab Status: Final result Specimen: Sputum Induced Updated: 08/21/22 0948 Lower Respiratory Culture Rare mixed bacterial morphotypes suggestive of normal upper respiratory wiley Gram Stain -- Many Neutrophils seen Few squamous epithelial cells seen No microorganisms seen. Blood culture [[id number]] Collected: 08/19/22 1330 Lab Status: Final result Specimen: Blood Updated: 08/24/22 1501 Blood Culture No growth at 5 days. Legionella Urinary Antigen [[id number]] Collected: 08/18/22 1013 Lab Status: Final result [...] Catheter Urine; Other; sepsis, bacteria on UA [[id number]] Collected: 08/15/22 1225 Lab Status: Final result Specimen: Indwelling Catheter Urine Updated: 08/16/22 0804 Urine Culture 1,000-9,000 cfu/ml Insignificant growth COVID-19 PCR [[id number]] Collected: 08/15/22 1150 Lab Status: Final result [...] using the Simplexa COVID-19 Direct Assay by [employer] as authorized by the FDA issued Emergency [...] Department of Pathology and Laboratory Medicine at [facility], certified under the Clinical Laboratory Improvement Amendments [...] fact sheets at the following FDA website: https://www.fda.gov/medical-devices/ukjfwpurmsj-tjeaboj-3055-nwqcy-42-djjyicwoy- wah-rpyhmaynggbgge-dqjomqd-devices/rhbhe-dougndforca-swop SARS-CoV-2 Source INNER DIAMETER GRINDER TOOL Swab Lower Respiratory Culture Sputum Induced [[id number]] Collected: 08/15/22 0740 Lab Status: Final result Specimen: Sputum Induced Updated: 08/17/22 1015 Lower Respiratory Culture Rare normal upper respiratory wiley Gram Stain -- Many Neutrophils Few squamous epithelial cells Rare mixed bacterial morphotypes suggestive of normal upper respiratory wiley Blood culture [[id number]] Collected: 08/15/22 0110 Lab Status: Final result Specimen: Blood Updated: 08/20/22700 Blood Culture No growth at 5 days. MRSA PCR Screen ([facility]/CGP/APD/NLH) [[id number]] Collected: 08/15/22 0050 Lab Status: Final result Specimen: Nasopharyngeal Swab Updated: 08/17/22 1419 MRSA Result Negative MRSA Interp -- Methicillin-resistant Staphylococcus aureus (MRSA) is NOT DETECTED The MRSA target DNA sequences (mec and SCC) were not detected within the acceptable ranges using the Xpert MRSA NxG on the GeneXpert Dx System (Page Mage). This suggests the absence of MRSA in the patient specimen submitted for testing. This test is cleared by the U.S. Food and Drug Administration for clinical use and its performance characteristics have been verified by the [facility] at [facility]. This result does not rule out the presence of any other organisms. Rare false negative results may occur if MRSA is present at low concentrations with much higher concentrations of other organisms including MRSE or S. aureus with an empty SCC cassette. Comment: [VERIFIED DATE]08.17.22 Verified By:Shannon Smiley (Electronic Signature) Blood culture [[id number]] Collected: 08/14/22 8559 Lab Status: Final result Specimen: Blood Updated: 08/20/2201 Blood Culture No growth at 5 days. [...] who have questions please contact the health pediatric acute care unit nurse that requested your imaging first. Abdomen 1 [...] who have questions please contact the health pediatric acute care unit nurse that requested your imaging first. Electronically signed by: Liliane Adams MD, [facility] ([phone]), at 08/15/2022 9:05 AM XR Chest One [...] who have questions please contact the health pediatric acute care unit nurse that requested your imaging first. Abdomen 1 [...] who have questions please contact the health pediatric acute care unit nurse that requested your imaging first. Chest One [...] who have questions please contact the health pediatric acute care unit nurse that requested your imaging first. Electronically signed by: Alfonso Adams MD, [facility] ([phone]), at 08/16/2022 10:[address] Head wo [...] who have questions please contact the health pediatric acute care unit nurse that requested your imaging first. Electronically signed by: Moustapha Correa MD, [facility] ([phone]), at 08/16/2022 11:19 PM XR Abdomen 1 [...] who have questions please contact the health pediatric acute care unit nurse that requested your imaging first. Head wo Contrast (Generic) (Exam End: 08/18/2022 3:14 PM) Impression No acute intracranial process. Thank you for letting us participate in the care of this patient. If you are a health care provider and have any questions regarding this report, please contact the number below. For patients who have questions please contact the health pediatric acute care unit nurse that requested your imaging first. Electronically signed by: Antonio Jordan MD, [facility] ([phone]), at 08/18/2022 3:18 PM XR Chest One [...] who have questions please contact the health pediatric acute care unit nurse that requested your imaging first. Electronically signed by: Alan De Guzman MD, [facility] ([phone]), at 08/19/2022 3:14 PM MRI Brain wo Contrast (Exam End: 08/19/2022 10:15 PM) Impression No acute infarction, mass or mass effect. Thank you for letting us participate in the care of this patient. If you are a health care provider and have any questions regarding this report, please contact the number below. For patients who have questions please contact the health pediatric acute care unit nurse that requested your imaging first. Electronically signed by: Jagdeep Lee MD, [facility] ([phone]), at 08/20/2022 3:34 AM XR Chest for Verifying Vascular Access PICC [...] who have questions please contact the health pediatric acute care unit nurse that requested your imaging first. Electronically signed by: Alan De Guzman MD, [facility] ([phone]), at 08/19/2022 4:[address] Hip w [...] who have questions please contact the health pediatric acute care unit nurse that requested your imaging first. Electronically signed by: Aicha Chowdhury MD, [facility] ([phone]), at 08/21/2022 9:[address] Chest w [...] who have questions please contact the health pediatric acute care unit nurse that requested your imaging first. Electronically signed by: Jagdeep Lee MD, [facility] ([phone]), at 08/21/2022 6:56 AM XR Hip 2-3 Views Left (Exam End: 08/22/2022 12:19 AM) Impression No radiographic evidence of infection. Thank you for letting us participate in the care of this patient. If you are a health care provider and have any questions regarding this report, please contact the number below. For patients who have questions please contact the health pediatric acute care unit nurse that requested your imaging first. Electronically signed by: Viktor Cervantes MD, [facility] ([phone]), at 08/22/2022 12:43 PM XR Pelvis (Generic) (Exam End: 08/22/2022 12:19 AM) Impression No radiographic evidence of infection status post left hip ORIF. Thank you for letting us participate in the care of this patient. If you are a health care provider and have any questions regarding this report, please contact the number below. For patients who have questions please contact the health pediatric acute care unit nurse that requested your imaging first. Electronically signed by: Richard Billings MD, [facility] ([phone]), at 08/22/2022 10:[address] Angiogram Coronary [...] who have questions please contact the health pediatric acute care unit nurse that requested your imaging first. Electronically signed by: Arlette Mays MD, [facility] ([phone]), at 08/27/2022 11:[address] Chest wo Contrast (Generic) (Exam End: 08/27/2022 8:58 AM) Impression Stable findings of multifocal pneumonia. No interval abnormality. Thank you for letting us participate in the care of this patient. If you are a health care provider and have any questions regarding this report, please contact the number below. For patients who have questions please contact the health pediatric acute care unit nurse that requested your imaging first. Electronically signed by: MINH QUIROGA MD, [facility] ([phone]), at 08/27/2022 10:48 AM XR Fluoro Barium [...] who have questions please contact the health pediatric acute care unit nurse that requested your imaging first. Electronically signed by: Aron Billings MD, [facility] ([phone]), at 08/31/2022 12:02 PM Medications: Scheduled: ??? [...] ??? insulin lispro 1-5 Units Subcutaneous Q4H JARED ??? ergocalciferoL (vitamin D2) 50,000 Units Per [...] BID ??? acetaminophen 1,000 mg Oral Q8H JARED ??? thiamine 100 mg Intravenous Daily Continuous: [...] anemia,??GERD??c/b??esophagitis &??Farrell's esophagus, who was admitted to [facility] on 08/14/2022 (now on Hospital Day #19) for mixed shock with concern for stress cardiomyopathy (Takotsubo Cardiomyopathy) suspected to have been secondary to large volume aspiration from worsening dysphagia leading to aspiration pneumonia/pneumonitis. 4/26: Patient appears overall clinically similar to yesterday [...] with Dr. Marquis in June. Anticipate further SHIP RUNNER intervention with hope that patient is able to discharge with PO nutrition, percutaneous G-tube remains a possibility. Patient's profound psychomotor slowing raises some concern for catatonia. May consider trial of benzodiazepines if response is not seen to wellbutrin. Today's plan: - Start wellbutrin today - Ongoing therapy with PT, OT, and SHIP RUNNER - Replete mag w/2gm for goal >1 - reticulocyte count (further interrogation of microcytic anemia) Neuro: # Bipolar Disorder - Depakote 300 mg oral liquid per Dobhoff tube q6hr. - Continue Seroquel 100mg nightly - Will check VPA trough level 08/29. - level 25mg/L 08/29 - SHIP RUNNER to evaluate, Recommend NPO at present - [...] Medicine PGY1 Medicine Team: Jose Juan, Pager #[phone] Date: 09/02/2022 Associated attestation - Tenisha Sandy [...] of two midnights or is on the [facility] inpatient only procedure list (status C) due to: acute metabolic encephalopathy,management of nstemi/stress cardiomyopathy, s/p treatment of sepsis. Also management of IV fluids as patient is not able to tolerate any PO intake. * Shashi Young - 09/01/2022 5:29 PM EDT Rocket Engine Mechanic Encounter Note Patient Name: Ishan Irving : [id number] MR#: [id number] Admit Date: 08/14/2022 11:11 PM Hospital Day [...] Follow-up: As needed. Time in Direct Care: Nydia Young 09/01/2022 * Petty Mccullough, SHIP RUNNER - 09/01/2022 1:56 PM EDT Speech Therapy Note Patient Profile:??Ishan Irving is a 62 year old female with a medical history notable for??recent L femoral neck fracture,??bipolar disorder, resolving medication-induced Parkinsonism, insulin-dependent diabetes mellitus,??hx of alcohol use disorder (reported to be in remission for 1.5 years)c/b chronic pancreatitis, iron deficiency anemia,??GERD??c/b??esophagitis &??Farrell's esophagus??presenting in transfer from [facility]??on 08/14/2022, suspected to be in cardiogenic shock and found to be in mixed shock with concern for stress cardiomyopathy.??SHIP RUNNER following for swallow, cognitive tx. MBS completed [...] ?? Respiratory rate and respiratory swallow pattern: [facility] Esophageal Observations: Intermittent belching noted today, consistent [...] nutrition/hydration to provide nutrition during rehab course. SHIP RUNNER will f/u for ongoing swallow and cognitive intervention. ?? Barium swallow (esophagram) will be helpful at later date (due to hx of Farrell's esophagus/GERD), however Pt is at high potential for aspiration during study d/t positioning requirements for this test. Likely will need a repeat MBS prior to ordering of barium swallow. ?? Pt would benefit from skilled SHIP RUNNER services to maximize swallow function and safety [...] in ongoing cognitive-linguistic evaluation. Plan: Therapy Frequency (SHIP RUNNER Eval): 2-4 times/wk Pt./family are in agreement with treatment plan. Total Minutes (Speech Language Pathology): 26 Petty Mccullough M.S., [facility]-SHIP [facility]NER Inpatient Speech-Pathology Pager: [phone] * Alicia Cook, OT - 09/01/2022 1:38 PM EDT Occupational [...] &??Farrell's esophagus??presenting in transfer from [facility], suspected to be in cardiogenic shock and [...] determined Anticipated Discharge Disposition: acute rehabilitation facility, [facility]ci facility Daily schedule / Staff Recommendations: ? [...] Minutes, Occupational Therapy: 38 (2 TA) Pager: [phone] Alicia Cook OT 09/01/2022 Occupational Therapy Rehabilitation Department * [...] &??Farrell's esophagus??presenting in transfer from [facility], suspected to be in cardiogenic shock and [...] (seeb with OT) GENE YOUNG, PT Pager: [phone] Physical Therapy Inpatient Rehabilitation Department * Elsie Erickson, RADIO INTERFERENCE TROUBLE SHOOTER - 09/01/2022 7:30 AM EDT Follow Up [...] &??Farrell's esophagus??presenting in transfer from [facility], suspected to be in cardiogenic shock and [...] goal of 98mls/hr Monitoring:??Q4 Elsie Erickson APRN [facility] Endocrinology Diabetes Management Pager [phone] * Irwin Jones MD - 09/01/2022 7:19 AM EDT Images from the original note were not included. Inpatient Hospital Medicine Progress Note 09/01/2022 Patient Name: ISHAN IRVING Date of : 1960 Age: 62 y.o. Hospital Admit Date: 08/14/2022 Hospital Day: 18 Inpatient Attending: Tenisha Sandy MD PCP: Chris Stanley APRN ([phone]) No chief complaint on file. ID: Ishan Irving is a 62 y.o. 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.5 years) c/b chronic pancreatitis, iron deficiency anemia, ??GERD??c/b??esophagitis &??Farrell's esophagus, who was admitted to [facility] on 08/14/2022 (now on Hospital Day #18), and transferred to Hospital Medicine team from Cardiology on 08/30 for mixed shock with concern for stress cardiomyopathy (Takotsubo Cardiomyopathy). 24 HOUR EVENTS & SUBJECTIVE: Yesterday: - MBS performed, SHIP RUNNER recommend NPO with ice chips for pleasure [...] Gas): No results found for: PHART, PO2ART, BEE5CFT, RYC4CGU VBG (Venous Blood Gas): No results for input(s): PHVEN, GXI1OVF, PO2VEN, JET3UNI, BEVEN, DZP4CFN in the last 72 hours. EKG: Lab [...] Date/Time Lower Respiratory Culture Bronchial Alveolar Lavage [[id number]] Collected: 08/21/221649 Lab Status: Final result Specimen: Bronchial Alveolar Lavage Updated: 08/23/22 0741 Lower Respiratory Culture Rare mixed bacterial morphotypes suggestive of normal upper respiratory wiley Gram Stain -- Few Neutrophils seen No squamous epithelial cells seen No microorganisms seen. Fungus Culture & Calc Stain Bronchial Alveolar Lavage [[id number]] (Abnormal) Collected: 08/21/221649 Lab Status: Preliminary result Specimen: Bronchial Alveolar Lavage Updated: 08/24/22 1452 AFB culture Bronchial Alveolar Lavage [[id number]] Collected: 08/21/22 165 Lab Status: Preliminary result Specimen: Bronchial Alveolar Lavage Updated: 08/24/22 2219 Acid Fast Bacilli Culture -- No Acid Fast Bacilli isolated to date If active tuberculosis is suspected, the patient should be on [employer] PRECAUTIONS. Call Infection Prevention for assistance if needed. Acid Fast Stain No Acid Fast Bacilli seen Fungus culture [[id number]] (Abnormal) Collected: 08/21/221649 Lab Status: Preliminary result Specimen: Bronchial Alveolar Lavage Updated: 08/24/22 1452 Fungus Culture Rare Jacky albicans Calcofluor White Stain [[id number]] Collected: 08/21/221649 Lab Status: Final result Specimen: Bronchial Alveolar Lavage Updated: 08/21/222015 Calcofluor Stain Calcofluor White Preparation: Negative Lower Respiratory Culture Bronchial Alveolar Lavage [[id number]] Collected: 08/21/221644 Lab Status: Final result Specimen: Bronchial Alveolar Lavage Updated: 08/23/22 0741 Lower Respiratory Culture Rare mixed bacterial morphotypes suggestive of normal upper respiratory wiley Gram Stain -- Moderate Neutrophils seen No squamous epithelial cells seen No microorganisms seen. Fungus Culture & Calc Stain Bronchial Alveolar Lavage [[id number]] (Abnormal) Collected: 08/21/221644 Lab Status: Preliminary result Specimen: Bronchial Alveolar Lavage Updated: 08/24/22 145 AFB culture Bronchial Alveolar Lavage [[id number]] Collected: 08/21/221644 Lab Status: Preliminary result Specimen: Bronchial Alveolar Lavage Updated: 08/24/22 2221 Acid Fast Bacilli Culture -- No Acid Fast Bacilli isolated to date If active tuberculosis is suspected, the patient should be on AIRBORNE PRECAUTIONS. Call Infection Prevention for assistance if needed. Acid Fast Stain No Acid Fast Bacilli seen Fungus culture [[id number]] (Abnormal) Collected: 08/21/22 164 Lab Status: Preliminary result Specimen: Bronchial Alveolar Lavage Updated: 08/24/22 145 Fungus Culture Rare Jacky albicans Calcofluor White Stain [[id number]] Collected: 08/21/221644 Lab Status: Final result Specimen: Bronchial Alveolar Lavage Updated: 08/21/222016 Calcofluor Stain Calcofluor White Preparation: Negative Blood culture [[id number]] Collected: 08/19/22 1720 Lab Status: Final result Specimen: Blood Updated: 08/24/22 2301 Blood Culture No growth at 5 days. Lower Respiratory Culture Sputum Induced [[id number]] Collected: 08/19/22 1451 Lab Status: Final result Specimen: Sputum Induced Updated: 08/21/22 0948 Lower Respiratory Culture Rare mixed bacterial morphotypes suggestive of normal upper respiratory wiley Gram Stain -- Many Neutrophils seen Few squamous epithelial cells seen No microorganisms seen. Blood culture [[id number]] Collected: 08/19/22 1330 Lab Status: Final result Specimen: Blood Updated: 08/24/22 1501 Blood Culture No growth at 5 days. Legionella Urinary Antigen [[id number]] Collected: 08/18/22 1013 Lab Status: Final result [...] Catheter Urine; Other; sepsis, bacteria on UA [[id number]] Collected: 08/15/22 1225 Lab Status: Final result Specimen: Indwelling Catheter Urine Updated: 08/16/22 0804 Urine Culture 1,000-9,000 cfu/ml Insignificant growth COVID-19 PCR [[id number]] Collected: 08/15/22 1150 Lab Status: Final result [...] using the Simplexa COVID-19 Direct Assay by [employer] as authorized by the FDA issued Emergency [...] Department of Pathology and Laboratory Medicine at [facility], certified under the Clinical Laboratory Improvement Amendments [...] fact sheets at the following FDA website: https://www.fda.gov/medical-devices/nvbwzkembse-ijnixzk-1236-jgozo-83-itfpyuude- lmf-xbjruqvteewxex-duwppjc-devices/ettve-bwjonjysflp-uasc SARS-CoV-2 Source INNER DIAMETER GRINDER TOOL Swab Lower Respiratory Culture Sputum Induced [[id number]] Collected: 08/15/22 0740 Lab Status: Final result Specimen: Sputum Induced Updated: 08/17/22 1015 Lower Respiratory Culture Rare normal upper respiratory wiley Gram Stain -- Many Neutrophils Few squamous epithelial cells Rare mixed bacterial morphotypes suggestive of normal upper respiratory wiley Blood culture [[id number]] Collected: 08/15/22 0110 Lab Status: Final result Specimen: Blood Updated: 08/20/22 0701 Blood Culture No growth at 5 days. MRSA PCR Screen ([facility]/CGP/APD/NLH) [[id number]] Collected: 08/15/22 0050 Lab Status: Final result Specimen: Nasopharyngeal Swab Updated: 08/17/22 1419 MRSA Result Negative MRSA Interp -- Methicillin-resistant Staphylococcus aureus (MRSA) is NOT DETECTED The MRSA target DNA sequences (mec and SCC) were not detected within the acceptable ranges using the Xpert MRSA NxG on the GeneXpert Dx System (Page Mage). This suggests the absence of MRSA in the patient specimen submitted for testing. This test is cleared by the U.S. Food and Drug Administration for clinical use and its performance characteristics have been verified by the [facility] at [facility]. This result does not rule out the presence of any other organisms. Rare false negative results may occur if MRSA is present at low concentrations with much higher concentrations of other organisms including MRSE or S. aureus with an empty SCC cassette. Comment: [VERIFIED DATE]08.17.22 Verified By:Shannon Smiley (Electronic Signature) Blood culture [[id number]] Collected: 08/14/22 1933 Lab Status: Final result Specimen: Blood Updated: [...] who have questions please contact the health pediatric acute care unit nurse that requested your imaging first. Abdomen 1 [...] who have questions please contact the health pediatric acute care unit nurse that requested your imaging first. Electronically signed by: Liliane Adams MD, [facility] ([phone]), at 08/15/2022 9:05 AM XR Chest One [...] who have questions please contact the health pediatric acute care unit nurse that requested your imaging first. Abdomen 1 [...] who have questions please contact the health pediatric acute care unit nurse that requested your imaging first. Electronically signed by: [facility]i [facility] ([phone]), at 08/15/2022 6:41 AM XR Chest One View (Exam End: 08/16/2022 10:31 [...] who have questions please contact the health pediatric acute care unit nurse that requested your imaging first. Electronically signed by: Alfonso Adams MD, [facility] ([phone]), at 08/16/2022 10:[address] Head wo [...] who have questions please contact the health pediatric acute care unit nurse that requested your imaging first. Electronically signed by: Moustapha Correa MD, [facility] ([phone]), at 08/16/2022 11:19 PM XR Abdomen 1 [...] who have questions please contact the health pediatric acute care unit nurse that requested your imaging first. Head wo Contrast (Generic) (Exam End: 08/18/2022 3:14 PM) Impression No acute intracranial process. Thank you for letting us participate in the care of this patient. If you are a health care provider and have any questions regarding this report, please contact the number below. For patients who have questions please contact the health pediatric acute care unit nurse that requested your imaging first. Electronically signed by: Antonio Jordan MD, [facility] ([phone]), at 08/18/2022 3:18 PM XR Chest One [...] who have questions please contact the health pediatric acute care unit nurse that requested your imaging first. Electronically signed by: Alan De Guzman MD, [facility] ([phone]), at 08/19/2022 3:14 PM MRI Brain wo Contrast (Exam End: 08/19/2022 10:15 PM) Impression No acute infarction, mass or mass effect. Thank you for letting us participate in the care of this patient. If you are a health care provider and have any questions regarding this report, please contact the number below. For patients who have questions please contact the health pediatric acute care unit nurse that requested your imaging first. Electronically signed by: Jagdeep Lee MD, [facility] ([phone]), at 08/20/2022 3:34 AM XR Chest for Verifying Vascular Access PICC [...] who have questions please contact the health pediatric acute care unit nurse that requested your imaging first. Electronically signed by: Alan De Guzman MD, [facility] ([phone]), at 08/19/2022 4:[address] Hip w [...] who have questions please contact the health pediatric acute care unit nurse that requested your imaging first. Electronically signed by: Aicha Chowdhury MD, [facility] ([phone]), at 08/21/2022 9:[address] Chest w [...] who have questions please contact the health pediatric acute care unit nurse that requested your imaging first. Electronically signed by: Jagdeep Lee MD, [facility] ([phone]), at 08/21/2022 6:56 AM XR Hip 2-3 Views Left (Exam End: 08/22/2022 12:19 AM) Impression No radiographic evidence of infection. Thank you for letting us participate in the care of this patient. If you are a health care provider and have any questions regarding this report, please contact the number below. For patients who have questions please contact the health pediatric acute care unit nurse that requested your imaging first. Electronically signed by: Viktor Cervantes MD, [facility] ([phone]), at 08/22/2022 12:43 PM XR Pelvis (Generic) (Exam End: 08/22/2022 12:19 AM) Impression No radiographic evidence of infection status post left hip ORIF. Thank you for letting us participate in the care of this patient. If you are a health care provider and have any questions regarding this report, please contact the number below. For patients who have questions please contact the health pediatric acute care unit nurse that requested your imaging first. Electronically signed by: Richard Billings MD, [facility] ([phone]), at 08/22/2022 10:[address] Angiogram Coronary [...] who have questions please contact the health pediatric acute care unit nurse that requested your imaging first. Electronically signed by: Arlette Mays MD, [facility] ([phone]), at 08/27/2022 11:[address] Chest wo Contrast (Generic) (Exam End: 08/27/2022 8:58 AM) Impression Stable findings of multifocal pneumonia. No interval abnormality. Thank you for letting us participate in the care of this patient. If you are a health care provider and have any questions regarding this report, please contact the number below. For patients who have questions please contact the health pediatric acute care unit nurse that requested your imaging first. Electronically signed by: MINH QUIROGA MD, [facility] ([phone]), at 08/27/2022 10:48 AM XR Fluoro Barium [...] who have questions please contact the health pediatric acute care unit nurse that requested your imaging first. Electronically signed by: Aron Billings MD, [facility] ([phone]), at 08/31/2022 12:02 PM Medications: Scheduled: ??? [...] ??? insulin lispro 1-5 Units Subcutaneous Q4H JARED ??? ergocalciferoL (vitamin D2) 50,000 Units Per [...] BID ??? acetaminophen 1,000 mg Oral Q8H JARED ??? thiamine 100 mg Intravenous Daily Continuous: [...] anemia,??GERD??c/b??esophagitis &??Farrell's esophagus, who was admitted to [facility] on 08/14/2022 (now on Hospital Day #18) [...] level 08/29. - level 25mg/L 08/29 - SHIP RUNNER to evaluate, Recommend NPO at present - [...] Medicine PGY1 Medicine Team: Jose Juan, Pager #[phone] Date: 09/01/2022 Associated attestation - Tenisha Sandy [...] provided on importance.No c/o pain. * Elsie Erickson APRN - 08/31/2022 3:07 PM EDT Follow Up [...] well. She is working on some ice [place]. Objective Temp: [36.5 ??C (97.7 ??F)-37.2 ??C [...] &??Farrell's esophagus??presenting in transfer from [facility], suspected to be in cardiogenic shock and [...] of 98mls/hr Monitoring: Q4 Elsie Erickson APRN [facility] Endocrinology Diabetes Management Pager [phone] minutes of this 35 minute visit was spent reviewing diabetes and treatment plan, reviewing all glucose and insulin data as well as relevant laboratory results with the patient, and coordination ofcare on the inpatient unit including nursing and primary team. * Petty Mccullough, SHIP RUNNER - 08/31/2022 10:16 AM EDT Speech-Language Pathology Modified Barium Swallow Evaluation Patient Profile:??Ishan Irving is a 62 year old female with a medical history notable for??recent L femoral neck fracture,??bipolar disorder, resolving medication-induced Parkinsonism, insulin-dependent diabetes mellitus,??hx of alcohol use disorder (reported to be in remission for 1.5 years)c/b chronic pancreatitis, iron deficiency anemia,??GERD??c/b??esophagitis &??Farrell's esophagus??presenting in transfer from [facility]??on 08/14/2022, suspected to be in cardiogenic shock and found to be in mixed shock with concern for stress cardiomyopathy.??SHIP RUNNER service was consulted to assess oropharyngeal swallow [...] cup, by straw with attempted chin tuck. [place] consistency thickened liquid by spoon x1, by [...] x2 ??? Posterior laryngeal portion of epiglottis: [place]-thick by spoon ??? Pyriform Sinuses: Thin liquids by cup, [place]-thick liquids by strawe ??? Airway: Thin liquids [...] Effortful, non-productive Aspiration / Penetration Scale Score (RosenbeckStefania et al. Dysphagia, 111995) 1 = no material enters the airway 2 = material enters the airway, does not touch the vocal cords, and is completely ejected 3 = material enters the airway, does not touch the vocal cords, but is not ejected: [place]-thick liquids 4 = material enters the airway, [...] nutrition/hydration to provide nutrition during rehab course. SHIP RUNNER will f/u for ongoing swallow intervention and therapeutic trials. Barium swallow (esophagram) will be helpful at later date, however Pt is at high potential for aspiration during study d/t positioning requirements for barium swallow. Pt would benefit from skilled SHIP RUNNER services to maximize swallow function and safety [...] questions or concerns. Petty Mccullough, BRAYDON MS, CCC-SHIP RUNNER Pager: [phone] Speech-Language Pathology Inpatient Rehabilitation Department * Gene [...] &??Farrell's esophagus??presenting in transfer from [facility], suspected to be in cardiogenic shock and [...] re: goals of rx, activity progression Assessment: Ishananne Irving was seen today for physical therapy [...] TA x 2 GENE YOUNG, PT Pager: [phone] Physical Therapy Inpatient Rehabilitation Department * Nancy Ernst, RD - 08/31/2022 8:21 AM EDT Nutrition Progress Note Ishan Irving is a 62 y.o.??female??with h/o bipolar, DM, EtOH, esophagitis, who presented to [facility] 3 days ago after being found unresponsive at home.?Patient found to have likely pneumonia +/- aspiration, newly reduced EF. Reason for Assessment: Follow-up, Tube Feeding Nutrition Recommendations: Enteral Nutrition: Cyclic Peptamen AF at 110ml/hr for 12hrs from [id number] At goal, this will provide: Peptamen AF Total Volume Per Day: 1320 mL Scoops of Protein: 0 Calories per Day: 1584 Protein per Day: 100 g Free Water mL per Day: 1072 % RDI: 106 % Monitor hydration status on above TFs as they are concentrated. Pt may need additional fluids depending on IVFs, med flushes, p.o. Intake, etc. Diet per SHIP RUNNER Monitor weight to trend Monitor BM. Goal [...] encounter: 67.7 kg (149 lb 4.8 oz). [place] Body Weight (IBW) (kg): 45.45 Usual Body [...] 08/25 r/t liquid tylenol, d/c per this verse writer's request as liquid tylenol acts as [...] up while inpatient Nancy Ernst RD Pager #:[phone] * Irwin Jones MD - 08/31/2022 7:09 AM EDT Images from the original note were not included. Inpatient Hospital Medicine Progress Note 08/31/2022 Patient Name: ISHAN IRVING Date of : 1960 Age: 62 y.o. Hospital Admit Date: 08/14/2022 Hospital Day: 17 Inpatient Attending: Alfonso Navarrete MD PCP: Chris Stanley APRN ([phone]) No chief complaint on file. ID: Ishan Irving is a 62 y.o. 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.5 years) c/b chronic pancreatitis, iron deficiency anemia, ??GERD??c/b??esophagitis &??Farrell's esophagus, who was admitted to [facility] on 08/14/2022 (now on Hospital Day #17), and transferred to Hospital Medicine team from Cardiology on 08/30 for mixed shock with concern for stress cardiomyopathy (Takotsubo Cardiomyopathy). 24 HOUR EVENTS & SUBJECTIVE: Yesterday: - Patient transferred from Cards as cardiomyopathy is now stabilized on goal directed therapy - Patient, per SHIP RUNNER eval, is strict NPO given HIGH concern [...] Gas): No results found for: PHART, PO2ART, IXS3YLZ, DOH0VQG VBG (Venous Blood Gas): No results for input(s): PHVEN, AVY6YPA, PO2VEN, FDL9WDX, BEVEN, VXH5AAV in the last 72 hours. EKG: Lab [...] Date/Time Lower Respiratory Culture Bronchial Alveolar Lavage [[id number]] Collected: 08/21/221649 Lab Status: Final result Specimen: Bronchial Alveolar Lavage Updated: 08/23/22 0741 Lower Respiratory Culture Rare mixed bacterial morphotypes suggestive of normal upper respiratory wiley Gram Stain -- Few Neutrophils seen No squamous epithelial cells seen No microorganisms seen. Fungus Culture & Calc Stain Bronchial Alveolar Lavage [[id number]] (Abnormal) Collected: 08/21/221649 Lab Status: Preliminary result Specimen: Bronchial Alveolar Lavage Updated: 08/24/22 1452 AFB culture Bronchial Alveolar Lavage [[id number]] Collected: 08/21/221649 Lab Status: Preliminary result Specimen: Bronchial Alveolar Lavage Updated: 08/24/22 221 Acid Fast Bacilli Culture -- No Acid Fast Bacilli isolated to date If active tuberculosis is suspected, the patient should be on AIRBORNE PRECAUTIONS. Call Infection Prevention for assistance if needed. Acid Fast Stain No Acid Fast Bacilli seen Fungus culture [[id number]] (Abnormal) Collected: 08/21/221649 Lab Status: Preliminary result Specimen: Bronchial Alveolar Lavage Updated: 08/24/22 145 Fungus Culture Rare Jacky albicans Calcofluor White Stain [[id number]] Collected: 08/21/221649 Lab Status: Final result Specimen: Bronchial Alveolar Lavage Updated: 08/21/222015 Calcofluor Stain Calcofluor White Preparation: Negative Lower Respiratory Culture Bronchial Alveolar Lavage [[id number]] Collected: 08/21/221644 Lab Status: Final result Specimen: Bronchial Alveolar Lavage Updated: 08/23/2241 Lower Respiratory Culture Rare mixed bacterial morphotypes suggestive of normal upper respiratory wiley Gram Stain -- Moderate Neutrophils seen No squamous epithelial cells seen No microorganisms seen. Fungus Culture & Calc Stain Bronchial Alveolar Lavage [[id number]] (Abnormal) Collected: 08/21/221644 Lab Status: Preliminary result Specimen: Bronchial Alveolar Lavage Updated: 08/24/22 1453 AFB culture Bronchial Alveolar Lavage [[id number]] Collected: 08/21/221644 Lab Status: Preliminary result Specimen: Bronchial Alveolar Lavage Updated: 08/24/22 2221 Acid Fast Bacilli Culture -- No Acid Fast Bacilli isolated to date If active tuberculosis is suspected, the patient should be on AIRBORNE PRECAUTIONS. Call Infection Prevention for assistance if needed. Acid Fast Stain No Acid Fast Bacilli seen Fungus culture [[id number]] (Abnormal) Collected: 08/21/22 164 Lab Status: Preliminary result Specimen: Bronchial Alveolar Lavage Updated: 08/24/22 1453 Fungus Culture Rare Jacky albicans Calcofluor White Stain [[id number]] Collected: 08/21/22 164 Lab Status: Final result Specimen: Bronchial Alveolar Lavage Updated: 08/21/22 2017 Calcofluor Stain Calcofluor White Preparation: Negative Blood culture [[id number]] Collected: 08/19/22 1720 Lab Status: Final result Specimen: Blood Updated: 08/24/22 2301 Blood Culture No growth at 5 days. Lower Respiratory Culture Sputum Induced [[id number]] Collected: 08/19/22 1451 Lab Status: Final result Specimen: Sputum Induced Updated: 08/21/22 0948 Lower Respiratory Culture Rare mixed bacterial morphotypes suggestive of normal upper respiratory wiley Gram Stain -- Many Neutrophils seen Few squamous epithelial cells seen No microorganisms seen. Blood culture [[id number]] Collected: 08/19/22 1330 Lab Status: Final result Specimen: Blood Updated: 08/24/22 1501 Blood Culture No growth at 5 days. Legionella Urinary Antigen [[id number]] Collected: 08/18/22 1013 Lab Status: Final result [...] Catheter Urine; Other; sepsis, bacteria on UA [[id number]] Collected: 08/15/22 1225 Lab Status: Final result Specimen: Indwelling Catheter Urine Updated: 08/16/22 0804 Urine Culture 1,000-9,000 cfu/ml Insignificant growth COVID-19 PCR [[id number]] Collected: 08/15/22 1150 Lab Status: Final result [...] using the Simplexa COVID-19 Direct Assay by [employer] as authorized by the FDA issued Emergency [...] Department of Pathology and Laboratory Medicine at [facility], certified under the Clinical Laboratory Improvement Amendments [...] fact sheets at the following FDA website: https://www.fda.gov/medical-devices/rdqwxpbpiac-intcfxl-5707-exqvb-32-rhpiqljcr- bvh-fzjxjgqvvgvpah-icodflz-devices/wikje-tipgilgbqca-insy SARS-CoV-2 Source INNER DIAMETER GRINDER TOOL Swab Lower Respiratory Culture Sputum Induced [[id number]] Collected: 08/15/22 0740 Lab Status: Final result Specimen: Sputum Induced Updated: 08/17/22 1015 Lower Respiratory Culture Rare normal upper respiratory wiley Gram Stain -- Many Neutrophils Few squamous epithelial cells Rare mixed bacterial morphotypes suggestive of normal upper respiratory wiley Blood culture [[id number]] Collected: 08/15/22 0110 Lab Status: Final result Specimen: Blood Updated: 08/20/22 0701 Blood Culture No growth at 5 days. MRSA PCR Screen ([facility]/CGP/APD/NLH) [[id number]] Collected: 08/15/22 0050 Lab Status: Final result Specimen: Nasopharyngeal Swab Updated: 08/17/22 1419 MRSA Result Negative MRSA Interp -- Methicillin-resistant Staphylococcus aureus (MRSA) is NOT DETECTED The MRSA target DNA sequences (mec and SCC) were not detected within the acceptable ranges using the Xpert MRSA NxG on the GeneXpert Dx System (Page Mage). This suggests the absence of MRSA in the patient specimen submitted for testing. This test is cleared by the U.S. Food and Drug Administration for clinical use and its performance characteristics have been verified by the [facility] at [facility]. This result does not rule out the presence of any other organisms. Rare false negative results may occur if MRSA is present at low concentrations with much higher concentrations of other organisms including MRSE or S. aureus with an empty SCC cassette. Comment: [VERIFIED DATE]08.17.22 Verified By:Shannon Smiley (Electronic Signature) Blood culture [[id number]] Collected: 08/14/22 2355 Lab Status: Final result [...] who have questions please contact the health pediatric acute care unit nurse that requested your imaging first. Abdomen 1 [...] who have questions please contact the health pediatric acute care unit nurse that requested your imaging first. Electronically signed by: Liliane Adams MD, [facility] ([phone]), at 08/15/2022 9:05 AM XR Chest One [...] who have questions please contact the health pediatric acute care unit nurse that requested your imaging first. Abdomen 1 [...] who have questions please contact the health pediatric acute care unit nurse that requested your imaging first. Chest One [...] who have questions please contact the health pediatric acute care unit nurse that requested your imaging first. Electronically signed by: Alfonso Adams MD, [facility] ([phone]), at 08/16/2022 10:[address] Head wo [...] who have questions please contact the health pediatric acute care unit nurse that requested your imaging first. Electronically signed by: Moustapha Correa MD, [facility] ([phone]), at 08/16/2022 11:19 PM XR Abdomen 1 [...] who have questions please contact the health pediatric acute care unit nurse that requested your imaging first. Head wo Contrast (Generic) (Exam End: 08/18/2022 3:14 PM) Impression No acute intracranial process. Thank you for letting us participate in the care of this patient. If you are a health care provider and have any questions regarding this report, please contact the number below. For patients who have questions please contact the health pediatric acute care unit nurse that requested your imaging first. Electronically signed by: Antonio Jordan MD, [facility] ([phone]), at 08/18/2022 3:18 PM XR Chest One [...] who have questions please contact the health pediatric acute care unit nurse that requested your imaging first. Electronically signed by: Alan De Guzman MD, [facility] ([phone]), at 08/19/2022 3:14 PM MRI Brain wo Contrast (Exam End: 08/19/2022 10:15 PM) Impression No acute infarction, mass or mass effect. Thank you for letting us participate in the care of this patient. If you are a health care provider and have any questions regarding this report, please contact the number below. For patients who have questions please contact the health pediatric acute care unit nurse that requested your imaging first. Electronically signed by: Jagdeep Lee MD, [facility] ([phone]), at 08/20/2022 3:34 AM XR Chest for Verifying Vascular Access PICC [...] who have questions please contact the health pediatric acute care unit nurse that requested your imaging first. Electronically signed by: Alan De Guzman MD, [facility] ([phone]), at 08/19/2022 4:[address] Hip w [...] who have questions please contact the health pediatric acute care unit nurse that requested your imaging first. Electronically signed by: Aicha Chowdhury MD, [facility] ([phone]), at 08/21/2022 9:[address] Chest w [...] who have questions please contact the health pediatric acute care unit nurse that requested your imaging first. Electronically signed by: Jagdeep Lee MD, [facility] ([phone]), at 08/21/2022 6:56 AM XR Hip 2-3 Views Left (Exam End: 08/22/2022 12:19 AM) Impression No radiographic evidence of infection. Thank you for letting us participate in the care of this patient. If you are a health care provider and have any questions regarding this report, please contact the number below. For patients who have questions please contact the health pediatric acute care unit nurse that requested your imaging first. Electronically signed by: Viktor Cervantes MD, [facility] ([phone]), at 08/22/2022 12:43 PM XR Pelvis (Generic) (Exam End: 08/22/2022 12:19 AM) Impression No radiographic evidence of infection status post left hip ORIF. Thank you for letting us participate in the care of this patient. If you are a health care provider and have any questions regarding this report, please contact the number below. For patients who have questions please contact the health pediatric acute care unit nurse that requested your imaging first. Electronically signed by: Richard Billings MD, [facility] ([phone]), at 08/22/2022 10:[address] Angiogram Coronary [...] who have questions please contact the health pediatric acute care unit nurse that requested your imaging first. Electronically signed by: Arlette Mays MD, [facility] ([phone]), at 08/27/2022 11:[address] Chest wo Contrast (Generic) (Exam End: 08/27/2022 8:58 AM) Impression Stable findings of multifocal pneumonia. No interval abnormality. Thank you for letting us participate in the care of this patient. If you are a health care provider and have any questions regarding this report, please contact the number below. For patients who have questions please contact the health pediatric acute care unit nurse that requested your imaging first. Electronically signed by: MINH QUIROGA MD, [facility] ([phone]), at 08/27/2022 10:48 AM Medications: Scheduled: ??? [...] ??? insulin lispro 1-5 Units Subcutaneous Q4H JARED ??? ergocalciferoL (vitamin D2) 50,000 Units Per [...] BID ??? acetaminophen 1,000 mg Oral Q8H JARED ??? thiamine 100 mg Intravenous Daily Continuous: ??? tube feeding diet 1,176 mL (08/31/22 4999) PRN: ondansetron, iohexoL, melatonin, polyethylene glycoL, senna, [...] anemia,??GERD??c/b??esophagitis &??Farrell's esophagus, who was admitted to [facility] on 08/14/2022 (now on Hospital Day #17) [...] level 08/29. - level 25mg/L 08/29 - SHIP RUNNER to evaluate, Recommend strict NPO - Reach [...] Medicine PGY1 Medicine Team: Jose Juan, Pager #[phone] Date: 08/31/2022 Associated attestation - Tenisha Sandy [...] of two midnights or is on the [facility] inpatient only procedure list (status C) [...] esophagus presenting in transfer from [facility], suspected to be in cardiogenic shock and [...] Will check VPA trough level 08/29. - SHIP RUNNER to evaluate. - Reach out to neurology, [...] not yielded any organisms - S/p BAL 4/14 without any growth to date. - IR, [...] 0. GDMT for HFrEF. Appreciate psychiatry and SHIP RUNNER consultation. Rest per Dr. Avila. Roland Pruett MD, MPH, RPVI, FACC, FAHA, BRITTNEEE, [facility] Pager [phone] Cardiovascular Valve MechanicPorcelain [place] [address] * Petty Mccullough, SHIP RUNNER - 08/28/2022 3:49 PM EDT Speech Therapy Note Patient Profile: Ishan Irving is a 62 year old female with a medical history notable for??recent L femoral neck fracture,??bipolar disorder, resolving medication-induced Parkinsonism, insulin-dependent diabetes mellitus,??hx of alcohol use disorder (reported to be in remission for 1.5 years) c/b chronic pancreatitis, iron deficiency anemia,??GERD??c/b??esophagitis &??Farrell's esophagus??presenting in transfer from [facility] on 08/14/2022, suspected to be in cardiogenic shock and found to bein mixed shock with concern for stress cardiomyopathy. SHIP RUNNER service was consulted to assess oropharyngeal swallow [...] non-productive. Bolus Presentation(s) ?? Ice chips ?? [place] thickened liquid via cup ?? Puree Oral [...] and respiratory swallow pattern: WFL Esophageal Observations: Infrequent belching with liquids Confusion [...] [x] [] Orientation Log Score: 21 Education: SHIP RUNNER educated re: plan of care, recs for MBS at later date. Pt in agreement, stating she would like DHT out but understands she is not ready to eat/drink yet. Assessment: Pt was seen today for a follow-up SHIP RUNNER visit. ??? Oropharyngeal swallow function characterized by suspected delayed swallow initiation and cough response with all PO trials this date. Cough appears effortful, non-productive. ??? Based on Pt's complicated medical history and current debility, recommend MBS prior to diet initiation. Orders received, will try to order for next week (08/31-09/04) ??? Orientation log score of 21/30, does require frequent extended processing time to [...] from staff as needed Plan: Therapy Frequency (SHIP RUNNER Eval): 2-4 times/wk Pt./family are in agreement with treatment plan. Total Minutes (Speech Language Pathology): 30 Petty Mccullough M.S., [facility]-SHIP RUNNER Inpatient Speech-Pathology Pager: [phone] * Elsie Erickson APRN - 08/28/2022 3:49 [...] &??Farrell's esophagus??presenting in transfer from [facility], suspected to be in cardiogenic shock and [...] of 98mls/hr Monitoring: Q4 Elsie Erickson APRN [facility] Endocrinology Diabetes Management Pager [phone] minutes of this 50 minute visit was spent evaluating diabetes and treatment plan, reviewing all glucose and insulin data as well as relevant laboratory results , and coordination of care on the inpatient unit including nursing and primary team. * Shashi Young - 08/28/2022 2:46 PM EDT Rocket Engine Mechanic Encounter Note Patient Name: Ishan Irving : [id number] MR#: [id number] Admit Date: 08/14/2022 11:11 PM Hospital Day [...] available per request. Time in Direct Care: 20 Shashi Young 08/28/2022 * Shashi Young - 08/28/2022 11:45 AM EDT Rocket Engine Mechanic Encounter Note Patient Name: Ishan Irving : [id number] MR#: [id number] Admit Date: 08/14/2022 11:11 PM Hospital Day 14 days Narrative: A response to a referral from Abby via [employer] for Spiritual support to patient and her [...] &??Farrell's esophagus??presenting in transfer from [facility], suspected to be in cardiogenic shock and [...] discharge: to be determined Anticipated Discharge Disposition: [facility]ci facility, acute rehabilitation facility Daily schedule / [...] 2-4 times/wk Total Minutes, Occupational Therapy: 28 (3 [place] 7529-2782) Pager: [phone] Alicia Cook, OT 08/28/2022 Occupational Therapy Rehabilitation Department * [...] &??Farrell's esophagus??presenting in transfer from [facility], suspected to be in cardiogenic shock and [...] Billing Code: TAx2 GENE YOUNG, PT Pager: [phone] Physical Therapy Inpatient Rehabilitation Department * Avani Ayala, RN - 08/28/2022 10:02 AM EDT Office of Care Management (OCM /[place] (RUPAL)Discharge planning ) Service : S1 Pager #[phone] e- reviewed. Report received from IDDRs Patient plan of care discussed with Team and Nursing to assessment for continuing care and discharge needs. [facility]: 14 DECISION MAKER: Attempt Cardiopulmonary Resuscitation - Inpatient, <no information> Ongoing Issues: This verse writer had a message to give Antonio a call . He has reqyested that [facility] be the referral of choice . He [...] discuss discharge planning needs. ?? provide the [facility], Office of Care Management letter from the Gut Snatcher pertaining to rehabreferrals. ?? provide a letter describing our affiliations within the [facility] and educate about their right to choose where referrals are sent. ?? provide the [facility] Star Quality Rating handout. ?? review the different levels of rehab including SNF, swing, and acute. ?? provide a list of facilities within their preferred geographic area. ?? request that they provide at least three choices for referral. They have requested referrals to: [facility] [place] ([facility]) [address] [place] [address] P: [phone] F: [phone] Does patient have COVID vaccine card: No Note routed to a Materials Engineer who will communicate referrals to facilities and [...] and to facilitate discharge planning. Avani Ayala RN CM Pager # [phone] * Reynaldo Avila MD - 08/28/2022 7:43 [...] esophagus presenting in transfer from [facility], suspected to be in cardiogenic shock and [...] parkinsonism/medication regimen contributing to overall slow recovery. SHIP RUNNER consulted, appreciate recs. Neuro: # Bipolar Disorder - Depakote 300 mg oral liquid per Dobhoff tube q6hr. - Continue Seroquel 100mg nightly - Will check VPA trough level 08/29. - SHIP RUNNER to evaluate. - Reach out to neurology, [...] 0. GDMT for HFrEF. Appreciate psychiatry and SHIP RUNNER consultation. Roland Pruett MD, MPH, RPVI, FACC, KOKI, SHERI, [facility] Pager [phone] Cardiovascular Valve MechanicPorcelain [place] [address] * Cydney Moses RN - 08/28/2022 7:00 AM EDT Pt was able to sleep most of the shift and woke up intermittently for basic need request. Tube feeding restarted per protocol at 45ml/hr. * Neva Zhao MATERIAL LOADER - 08/27/2022 11:52 AM EDT This MATERIAL LOADER received a message this morning from Ishan's spouse, Antonio, asking for a gas card. ThisMSW and transportation RS went to talk to Antonio about his request and provide him with informationon Medicaid rides. Antonio said he is familiar with Medicaid rides, but he is not interested in using those services at this time. This MATERIAL LOADER then explained that the hospital is unable to provide gas cards if Medicaid rides are available. Antonio expressed understanding of this. Antonio then expressed frustration around the lack of support available from the state of [place], sharing that he continues to be unable to find any type of emergency assistance to help with bills and other expenses. Antonio thentalked about his support system, including their two sons that live in [place], as well as his sister and mother in [place]. Antonio said their sons plan to help [...] &??Farrell's esophagus??presenting in transfer from [facility], suspected to be in cardiogenic shock and found to be in mixed shock with concern for stress cardiomyopathy. She is s/p ORIF left femoral neck fracture 5 days ago at OSH. Interval History: transferred to [facility]; mcrae removed; dobhoff remains Social History: [...] 25 Billing Code: TA x 2 GENE YOUNG PT Pager: [phone] Physical Therapy Inpatient Rehabilitation Department * Reynaldo [...] esophagus presenting in transfer from [facility], suspected to be in cardiogenic shock and found to be in mixed shock with concern for stress cardiomyopathy. 24 Hour Events/Subjective: Overnight: - NAEON. Intermittently disoriented, but stable overnight. This AM: - Stable from prior without significant change. Vasoactive & Sedating Medications: Infusions: Continuous Infusions: ??? tube feeding diet 900 mL (08/26/22 3803) Objective: Vitals Last value Range last 24 [...] Labs 08/27/22 0738 08/27/22 0519 08/26/22 2327 08/26/22 2005 08/26/22 1651 08/26/22 1313 08/26/22 1128 08/26/22 0758 08/26/22 0442 08/26/22 0019 04/18194608/25/22 1631 POCGLU 114 124 162 138 111 [...] and will check VPA level 08/29. - SHIP RUNNER to evaluate, pending recs Pulmonary: # Acute [...] the hospital. Hemodynamics stable. Still NPO per SHIP RUNNER with enteral nutrition through DHT. Proceeding with [...] of two midnights or is on the [facility] inpatient only procedure list (status C) due to: decompensated congestive heart failure requiring IV medication and fluid monitoring and aspiration pneumonia unable to advance oralintake. Milagros Hernandez MD Cardiovascular Medicine Personal Pager [phone] 08/27/2022 6:22 PM * Rober Mensah MD [...] time. Orthopedics to sign off. Please page [phone] with any questions or concerns. Rober Mensah MD 08/27/22 * Nancy Ernst RD - 08/27/2022 8:16 AM EDT Nutrition Progress Note Ishan Irving is a 62 y.o.??female??with h/o bipolar, DM, EtOH, esophagitis, who presented to [facility] 3 days ago after being found unresponsive at home.?Patient found to have likely pneumonia +/- aspiration, newly reduced EF. Reason for Assessment: Follow-up, Tube Feeding Nutrition Recommendations: Enteral Nutrition: Cyclic Peptamen AF at 98ml/hr for 12hrs from 3495-4680 At goal, this will provide: Peptamen AF [...] encounter: 69.6 kg (153 lb 6.4 oz). [place] Body Weight (IBW) (kg): 45.45 Usual Body [...] 08/25 r/t liquid tylenol, d/c per this verse writer's request as liquid tylenol acts as [...] up while inpatient Nancy Ernst RD Pager #:[phone] * Cydney Moses RN - 08/27/2022 7:44 [...] PM EDT Patient arrived via bed from [facility] this afternoon in stable condition. VSS. Denies any chest pain/SOB. Feeding tube running at goal (45mL/hr). Patient A+Ox2-3. C/O of mild lower back pain. External female catheter in place d/t frequency and incontinence. Safety maintained, bed alarm on. Call light within reach. Pt oriented to room. * Neva Zhao MSW - 08/26/2022 2:30 PM EDT MATERIAL LOADER received message stating that Ishan's , Antonio, is requesting social work support. Antonio shared that they have been denied support through economic services due to his disability income. Antonio also shared that he reached out to unemployment and his [employer] director of casework services, but he has not found anyone able to help with their immediate financial needs (rent, utilities). Antonio became emotional during conversation, sharing that he is concerned they will lose their home if theycan't pay their bills. MATERIAL LOADER provided support and promised to follow up with resources this afternoon. UPDATE: This MATERIAL LOADER called [facility] to provide information for [facility], [facility] on Aging, [facility] [employer] [facility], and the local food pantry. Antonio appreciativeof support and resources. * Afia Bergeron, BRAYDON - 08/26/2022 11:53 AM EDT Speech Therapy Note Patient Profile: Ishan Irving is a 62 year old female with a medical history notable for??recent L femoral neck fracture,??bipolar disorder, resolving medication-induced Parkinsonism, insulin-dependent diabetes mellitus,??hx of alcohol use disorder (reported to be in remission for 1.5 years) c/b chronic pancreatitis, iron deficiency anemia,??GERD??c/b??esophagitis &??Farrell's esophagus??presenting in transfer from [facility] on 08/14/2022, suspected to be in cardiogenic shock and found to bein mixed shock with concern for stress cardiomyopathy. SHIP RUNNER service was consulted to assess oropharyngeal swallow [...] chips ?? Thin liquid via spoon ?? [place] thickened liquid via spoon ?? via cup [...] reports pt was being followed closely by Baler and was supposed to go for a barium swallow sometime soon so they could look at her esophagus) Education: Pt and pt's , Antonio, verbally educated by this clinician to SHIP RUNNER role, results ofthis bedside reassessment, pt current swallow status/function, aspiration risks, safe swallow technique (optimizing upright positioning) and impact of baseline esophageal history on function. Discussed plan as outlined below. Antonio verbalizes understanding and agreement; pt reports I guess so when asked if she understands. Assessment: Pt was seen today for a follow-up SHIP RUNNER visit/reassessment. Pt sitting upright in chair today [...] have a barium swallow at baseline (via butane compressor operator) at some point to further assess esophageal [...] means only Continue alternative access (currently with [facility]) for primary nutrition/meds Consider GI input given baseline esophageal history? Aspiration Precautions: Excellent oral care Speech Therapy Goals: Pt will tolerate least restrictive diet without evidence of dysphagia / aspiration. Pt / caregiver will be independent with aspiration precautions, diet modifications, and safe swallowing strategies. Pt will maintain hydration / nutrition with optimal safety and efficiency. Plan: Therapy Frequency (SHIP RUNNER Eval): 2-4 times/wk Patient / family are in agreement with treatment plan. Total Minutes (Speech Language Pathology): 25 Thank you for this consult with this patient. Please feel free to page me with any questions or concerns. Afia Bergeron M.S., [facility]-SHIP RUNNER Pager: [phone] Speech-Language Pathology Inpatient Rehabilitation Medicine * Moustapha [...] esophagus presenting in transfer from [facility], suspected to be in cardiogenic shock and [...] this AM. She has been working with SHIP RUNNER/PT/OT and would benefit from continuation. Plan to obtain CT chest and CTA Coronaries today/tomorrow. Neuro: # Bipolar Disorder - Depakote 190 mg oral liquid per Dobhoff - Continue Seroquel 25mg nightly - Plan to increase to full home regimen (250mg QPM / 1g Q3PM) by 08/24. - SHIP RUNNER to evaluate, pending recs Pulmonary: # Acute [...] of two midnights or is on the [facility] inpatient only procedure list (status C) due to: acute respiratory compromise and/or hypoxia requiring assessment every 4 hours and the ability to respond immediately to the patient's needs and acute cardiomyopathy requiring further evaluation and therapy and acute toxic metabolic encephalopathy. Milagros Hernandez MD Cardiovascular Medicine Personal Pager [phone] 08/26/2022 5:28 PM * Gene Young, PT [...] &??Farrell's esophagus??presenting in transfer from [facility], suspected to be in cardiogenic shock and [...] plan as stated. Time IN / OUT: 1189-0729 Total Minutes, Physical Therapy: 20 Billing Code: TA x 1 GENE YOUNG, PT Pager: [phone] Physical Therapy Inpatient Rehabilitation Department * DreSeElsie G, RADIO INTERFERENCE TROUBLE SHOOTER - 08/26/2022 8:37 AM EDT Follow Up [...] &??Farrell's esophagus??presenting in transfer from [facility], suspected to be in cardiogenic shock and [...] tid ac & hs Elsie Erickson APRN [facility] Endocrinology Diabetes Management Pager [phone] * Chiquita Mukherjee, PT - 08/25/2022 5:24 [...] &??Farrell's esophagus??presenting in transfer from [facility], suspected to be in cardiogenic shock and [...] ta x 3 CHIQUITA MUKHERJEE PT Pager: [phone] Physical Therapy Inpatient Rehabilitation Department * Shea Wilkinson - 08/25/2022 4:15 PM EDT Rocket Engine Mechanic Encounter Note Patient Name: Ishan Irving : [id number] MR#: [id number] Admit Date: 08/14/2022 11:11 PM Hospital Day [...] Shashi Young - 08/25/2022 1:30 PM EDT Rocket Engine Mechanic Encounter Note Patient Name: Ishan Irving : [id number] MR#: [id number] Admit Date: 08/14/2022 11:11 PM Hospital Day [...] &??Farrell's esophagus??presenting in transfer from [facility], suspected to be in cardiogenic shock and found to be in mixed shock with concern for stress cardiomyopathy. She is s/p ORIF left femoral neck fracture 5 days ago. Past Medical History: Diagnosis Date ??? Bipolar disorder 02/12/2022 Past Surgical History: Procedure Laterality Date ??? PRO COLONOSCOPY, BIOPSY N/A 03/20/2016 COLONOSCOPY FLEXIBLE, WITH BX performed by David Dejesus MD at [facility] ENDOSCOPY ??? PRO COLONOSCOPY, DIAGNOSTIC N/A 03/01/2020 COLONOSCOPY, DIAGNOSTIC performed by David Dejesus MD at [facility] ENDOSCOPY ??? PRO ENDOSCOPIC US EXAM, ESOPH N/A 03/31/2022 UPPER EUS- ENDOSCOPIC ULTRASOUND performed by David Dejesus MD at [facility] ENDOSCOPY ??? PRO UPPER GI ENDOSCOPY, BIOPSY N/A 04/03/2014 UPPER GASTROINTESTINAL ENDOSCOPY,WITH BIOPSY SINGLE OR MULTIPLE performed by David [facility]jesus MDat [facility] END[facility]COPY ??? PRO UPPER GI ENDOSCOPY, BIOPSY N/A 03/20/2016 EGD WITH BIOPSY performed by David Dejesus MD at [facility] ENDOSCOPY ??? PRO UPPER GI ENDOSCOPY, BIOPSY N/A 11/22/2018 EGD WITH BIOPSY (WRVU 2.49) performed by David Dejesus MD at [facility] ENDOSCOPY ??? PRO UPPER GI ENDOSCOPY, BIOPSY N/A 03/01/2020 UPPER GASTROINTESTINAL ENDOSCOPY,WITH BIOPSY SINGLE OR MULTIPLE (WRVU 2.49) performed by David Dejesus MD at [facility] ENDOSCOPY ??? PRO UPPER GI ENDOSCOPY, BIOPSY N/A 09/23/2021 EGD WITH BIOPSY (WRVU 2.49) performed by David Dejesus MD at [facility] ENDOSCOPY ??? PRO UPPER GI ENDOSCOPY, BIOPSY N/A 03/31/2022 EGD WITH BIOPSY (WRVU 2.49) performed by David Dejesus MD at [facility] ENDOSCOPY ??? PRO UPPER GI ENDOSCOPY, BIOPSY N/A 07/03/2022 EGD WITH BIOPSY (WRVU 2.49) performed by David Dejesus MD at [facility] ENDOSCOPY ??? PRO UPPER GI ENDOSCOPY, DIAGNOSTIC N/A 04/03/2014 EGD, UPPER GI ENDOSCOPY performed by David Dejesus MD at [facility] ENDOSCOPY ??? PRO UPPER GI ENDOSCOPY, DIAGNOSTIC N/A 03/01/2020 EGD, UPPER GI ENDOSCOPY performed by David Dejesus MD at [facility] ENDOSCOPY Social History: Patient lives with her in a private home Home Setup: 3 HATTIE, then single floor DME: RW, rollator Baseline ADL/Mobility: Independent all ADL/IADL tasks. Drives. Ambulates w/o any AD. 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 Encourage use of [...] and measurable assessment of functional outcome. Pager: [phone] ADRIENNE ADLER OT 08/25/2022 Occupational Therapy Rehabilitation [...] esophagus presenting in transfer from [facility], suspected to be in cardiogenic shock and [...] first dose, check VPA level (08/24) - SHIP RUNNER to evaluate, pending recs Pulmonary: # Acute [...] barium swallow at this point and that SHIP RUNNER is evaluating her regularly. Will plan for CTA cors and chest tomorrow rather than cath- discussed with . Transition from insulin gtt to basal/bolus, appreciate assistance of DM team. Milagros Hernandez MD Cardiovascular Medicine Personal Pager [phone] 08/25/2022 1:51 PM * Afia Bergeron, SHIP RUNNER - 08/24/2022 5:57 PM EDT Speech Therapy [...] stool ball on CT. Plan is for [facility] medically optimized. SHIP RUNNER service consulted 08/22/22 to assess oropharyngeal swallow [...] esophageal dysfunction Education: Pt verbally educated to SHIP RUNNER role, results of this bedside reasesssment, and plan as outlined below. Pt verbalizes understanding and agreement with plan. Assessment: Pt was seen today for a follow-up SHIP RUNNER visit/reassessment. Continues to demonstrate oropharyngeal dysphagia and overt signs of aspiration with trials at the bedside today. Suboptimal positioning likely contributing as pt refuses to sit upright > 30/40 degrees today, also easy to fatigue. For now will suggest ice chips in moderation with RN for oral comfort and swallow stimulation when she is awake/alert and agrees to sit more upright. SHIP RUNNER will continue to follow with team. Pt [...] good candidate for the current oral care pilot manager program taking place on specific units at [facility]. Please use LE oral suction toothbrushes to perform oral care 2-4x daily. ?? Pt will benefit from continued SHIP RUNNER services while hospitalized Speech Therapy Goals: Pt will tolerate least restrictive diet without evidence of dysphagia / aspiration. Pt / caregiver will be independent with aspiration precautions, diet modifications, and safe swallowing strategies. Pt will maintain hydration / nutrition with optimal safety and efficiency. Plan: Therapy Frequency (SHIP RUNNER Eval): 2-3 times/wk Patient / family are in agreement with treatment plan. Total Minutes (Speech Language Pathology): 25 Thank you for this consult with this patient. Please feel free to page me with any questions or concerns. Afia Bergeron M.S., [facility]-SHIP RUNNER Pager: [phone] Speech-Language Pathology Inpatient Rehabilitation Medicine * Danielito [...] 1-5 /HPF Hypochromia Slight Ovalocytes 1-5 /HPF Connor Cells 1-5 /HPF Platelet Clumps Present POCT [...] stool ball on CT. Plan is for [facility] when medically optimized. Referred to PT for evaluation. Patient with the following active problems: Past Medical History: Diagnosis Date ??? Bipolar disorder 02/12/2022 Past Surgical History: Procedure Laterality Date ??? PRO COLONOSCOPY, BIOPSY N/A 03/20/2016 COLONOSCOPY FLEXIBLE, WITH BX performed by David Dejesus MD at [facility] ENDOSCOPY ??? PRO COLONOSCOPY, DIAGNOSTIC N/A 03/01/2020 COLONOSCOPY, DIAGNOSTIC performed by David Dejesus MD at [facility] ENDOSCOPY ??? PRO ENDOSCOPIC US EXAM, ESOPH N/A 03/31/2022 UPPER EUS- ENDOSCOPIC ULTRASOUND performed by David Dejesus MD at [facility] ENDOSCOPY ??? PRO UPPER GI ENDOSCOPY, BIOPSY N/A 04/03/2014 UPPER GASTROINTESTINAL ENDOSCOPY,WITH BIOPSY SINGLE OR MULTIPLE performed by David [facility]jesus MDat [facility]COPY ??? PRO UPPER GI ENDOSCOPY, BIOPSY N/A 03/20/2016 EGD WITH BIOPSY performed by David Dejesus MD at [facility] ENDOSCOPY ??? PRO UPPER GI ENDOSCOPY, BIOPSY N/A 11/22/2018 EGD WITH BIOPSY (WRVU 2.49) performed by David Dejesus MD at [facility] ENDOSCOPY ??? PRO UPPER GI ENDOSCOPY, BIOPSY N/A 03/01/2020 UPPER GASTROINTESTINAL ENDOSCOPY,WITH BIOPSY SINGLE OR MULTIPLE (WRVU 2.49) performed by David Dejesus MD at [facility] ENDOSCOPY ??? PRO UPPER GI ENDOSCOPY, BIOPSY N/A 09/23/2021 EGD WITH BIOPSY (WRVU 2.49) performed by David Dejesus MD at [facility] ENDOSCOPY ??? PRO UPPER GI ENDOSCOPY, BIOPSY N/A 03/31/2022 EGD WITH BIOPSY (WRVU 2.49) performed by David Dejesus MD at [facility] ENDOSCOPY ??? PRO UPPER GI ENDOSCOPY, BIOPSY N/A 07/03/2022 EGD WITH BIOPSY (WRVU 2.49) performed by David Dejesus MD at [facility] ENDOSCOPY ??? PRO UPPER GI ENDOSCOPY, DIAGNOSTIC N/A 04/03/2014 EGD, UPPER GI ENDOSCOPY performed by David Dejesus MD at [facility] ENDOSCOPY ??? PRO UPPER GI ENDOSCOPY, DIAGNOSTIC N/A 03/01/2020 EGD, UPPER GI ENDOSCOPY performed by David Dejesus MD at [facility] ENDOSCOPY Social History: Pt was not [...] Objective: Pt seen for evaluation today in [facility]. Upon arrival, pt lying in bed with [...] for this consult. GENE YOUNG, PT Pager: [phone] Physical Therapy Inpatient Rehabilitation Department Time IN / OUT: 1597-8832 Total Time: (P) 40 ((7432-7825)) minutes, GENE YOUNG, PT Pager: [phone] Physical Therapy Inpatient Rehabilitation Department 2017 PT Evaluation Code Rationale: ?? Diagnosis & [...] EtOH, esophagitis, who presented to [facility] 3 days ago after being found unresponsive [...] was able to discuss plan with provider [facility] [id number]. Current Nutrition Regimen: Active Orders Diet NPO [...] encounter: 69.3 kg (152 lb 12.5 oz). [place] Body Weight (IBW) (kg): 45.45 Wt Readings [...] up while inpatient Nancy Ernst RD Pager #:[phone] * Moustapha Gallegos MD - 08/24/2022 6:09 [...] esophagus presenting in transfer from [facility], suspected to be in cardiogenic shock and [...] first dose, check VPA level (08/24) - SHIP RUNNER to evaluate Pulmonary: # Acute hypoxic respiratory [...] - Inpatient Alternative Medical Decision Maker: son Moustapha Gallegos MD Internal Medicine, PGY-1 Cardiology CV[facility] [...] scans with CIC for now. Will ask SHIP RUNNER to reassess and consult PT/OT for mobilization [...] of two midnights or is on the [facility] inpatient only procedure list (status C) due to: decompensated congestive heart failure requiring IV medication and fluid monitoring and acute respiratory compromise and/or hypoxiarequiring assessment every 4 hours and the ability to respond immediately to the patient's needs Milagros Hernandez MD Cardiovascular Medicine Personal Pager [phone] 08/24/2022 2:26 PM * Aileen Mayorga MD [...] Santos, DO ID Fellow Red Team Pager: [phone] ID ATTENDING I agree with assessment and recommendations above. I reviewed the data set and guided decision-making but did not re-examine the patient today. Parris Leyva MD Page [phone] * Neva Tomlin MD - 08/23/2022 7:09 [...] esophagus presenting in transfer from [facility], suspected to be in cardiogenic shock and [...] Tomlin MD Internal Medicine, PGY-2 Cardiology [facility] #[id number] Associated attestation - Milagros Hernandez MD - [...] manage secretions and severedysphagia likely the underlying laundry route driver of her multifocal pneumonia. We will [...] of two midnights or is on the [facility] inpatient only procedure list (status C) due to: acute myocardial infarction requiring titration of IV medication and fluid monitoring and acute encephalopathy, severe dysphagia. Milagros Hernandez MD Cardiovascular Medicine Personal Pager [phone] 08/23/2022 8:44 PM * Briana Bryant, SHIP RUNNER - 08/22/2022 12:30 PM EDT Speech Therapy [...] &??Farrell's esophagus??presenting in transfer from [facility], suspected to be in cardiogenic shock and [...] good candidate for the current oral care pilot manager program taking place on specific units at [facility]. Please use LE oral suction toothbrushes to perform oral care 2-4x daily. Pt will benefit from continued SHIP RUNNER services while hospitalized Speech Therapy Goals: (To [...] Pt./family are in agreement with treatment plan. SHIP RUNNER session: 24 min Thank you for this consult with this patient. Please feel free to page me with any questions or concerns. Briana Bryant MA, CCC-SHIP RUNNER Pager: [phone] Speech-Language Pathology Inpatient Rehabilitation Medicine * Aileen [...] esophagus presenting in transfer from [facility], suspected to be in cardiogenic shock and [...] troublemanaging her secretions and overtly failed her SHIP RUNNER evaluation as expected. She is being maintained [...] therapy. Attending Attestation and Certification Please see Reyanldo Avila MD's note for details of the [...] of two midnights or is on the [facility] inpatient only procedure list (status C) due to: multifocal aspiration pneumoniawith respiratory compromise, altered mental status/ toxic metabolic encephalopathy, severe protein calorie malnutrition, stercoral colitis, acute anemia requiring transfusion. Milagros Hernandez MD Cardiovascular Medicine Personal Pager [phone] 08/22/2022 4:13 PM * Rock Purcell, RT [...] 10/8 21%, alert oriented and following commands. [id number]: SBT Passed on CPAP +5 21%, Pre [...] sedation on board patient returned to PSV 10/5 1708: FiO2 weaned to 21%, per SpO2. 1742: Per plan, with a positive cuff leak, extubated and placed patient on 5L NC, patient having a coughing fit and expectorating a moderate amount of thin clear/white secretions, able to faintly phonate. NARD noted. Patient stble on NC at change of shift. Plan: Continue to support patient with supplemental O2 wean as tolerated. RT Mildred * Neva Zhao MSW - 08/21/2022 10:03 AM EDT Social Work Response to Consult Consult: Nursing consult to Social Work Ordered at: 08/17/22 1023 Reason for Consult? finanacial concerns Social Work Response: MATERIAL LOADER met with Ishan's , Antonio, and their son to offer support and follow up on social work consult. MATERIAL LOADER encouraged Antonio to reach out to their Choices for Care liaisonfor questions related to caregiver benefits, including short term disability. MATERIAL LOADER also provided Antonio with information for Emergency/General Assistance and [place] [id number]. This MATERIAL LOADER provided contact information for the Office of [...] esophagus presenting in transfer from [facility], suspected to be in cardiogenic shock and [...] PHART 7.56* -- 7.54* 7.51* 7.48* 7.53* NNO2UJR 31* -- 31* 30* 34* 26* PO2ART 92 -- 73* 62* 78* 48* WMB7XAG 27.3* -- 25.7 23.2 25.0 21.2 LACTATEVEN 1.6 1.6 1.2 1.6 1.5 1.3 FRQ0KGS 30 -- 30 30 30 21 PFRATIOART2 307 -- 243 207 260 229 VBG (Venous Blood Gas) Recent Labs 08/20/22 0541 08/19/22 1445 08/19/22 0507 08/18/2261408/16/222008 LACTATEVEN 1.6 1.6 1.2 1.6 1.5 Mixed Venous Sat Recent Labs 08/16/22201108/16/22 1558 08/16/22 1211 08/16/22 1117 08/16/22 0948 R5VMFT2 56.6 50.5 56.0 49.3 56.5 Objective: Vitals [...] PHART 7.56* -- 7.54* 7.51* 7.48* 7.53* GMS6FTL 31* -- 31* 30* 34* 26* PO2ART 92 -- 73* 62* 78* 48* XZN0PGE 27.3* -- 25.7 23.2 25.0 21.2 LACTATEVEN 1.6 1.6 1.2 1.6 1.5 1.3 OHO1ALN 30 -- 30 30 30 21 PFRATIOART2 307 -- 243 207 260 229 VBG (Venous Blood Gas) Recent Labs 08/20/22 0541 08/19/22 1445 08/19/22 0507 08/18/2215 08/16/222008 LACTATEVEN 1.6 1.6 1.2 1.6 1.5 Mixed Venous Sat Recent Labs 08/16/22201108/16/22 1558 08/16/22 1211 08/16/22 1117 08/16/22 0948 V4JAZD6 56.6 50.5 56.0 49.3 56.5 Microbiology: 08/19, [...] stable. Continue supportive care. Appreciate input from [employer] hcm consultant services. Attending Attestation and Certification Please [...] of two midnights or is on the [facility] inpatient only procedure list (status C) due to: decompensated congestive heart failure requiring IV medication and fluid monitoring, acute respiratory compromise and/or hypoxia requiring assessment every 4 hours and the ability to respond immediately to the patient's needs, and multifocal pneumonia requiring IV antibiotic therapy. Milagros Hernandez MD Cardiovascular Medicine Personal Pager [phone] 08/21/2022 3:38 PM * Parris Leyva MD [...] Garsia MD Infectious Diseases Fellow- PGY4 Pager: [phone] 08/21/2022 8:14 AM ID ATTENDING I agree [...] should be followed. Parris Leyva MD Page [phone] All of this 35 minute visit were spent on the unit in coordination of care for the patient, regarding treatment of infection as detailed in note above. * Nancy Ernst RD - 08/21/2022 8:10 AM EDT Nutrition Progress Note Ishan Irving is a 62 y.o.??female??with h/o bipolar, DM, EtOH, esophagitis, who presented to [facility] 3 days ago after being found unresponsive [...] was able to discuss plan with provider [facility]. Current Nutrition Regimen: Active Orders Diet NPO [...] arm), right 5 Fr 08/19/22 1655 -- 2 Rectal Tube 08/20/222099 rectal tube [...] encounter: 72.5 kg (159 lb 13.3 oz). [place] Body Weight (IBW) (kg): 45.45 Wt Readings [...] up while inpatient Nancy Ernst RD Pager #:[phone] * Graciela Mcleod RCP - 08/21/2022 6:09 [...] for Consult? finanacial concerns Social Work Response: MACY called Ishan's , Antonio, to offer support. There was no answer, so this verse writer left voicemail with contact information. UPDATE: MACY received call back from Ishan's , Antonio, this afternoon. This MATERIAL LOADER and Antonio plan to meet when he is at the hospital tomorrow to discuss his questions related to disability benefits. Follow Up Needed: Follow for SW support * Alfonso Blackwood MD - 08/20/2022 8:26 AM EDT Critical Care Medicine Staff Progress Note 62 y.o. female with h/o bipolar, DM, EtOH, esophagitis, who presented to [facility] 3 days ago after being found unresponsive at home. Patient found to have likely pneumonia +/- aspiration, newly reduced EF. 24 hr events/subjective: -on beta blockers -afebrile, high WBC -Secretions - moderate -I/Os positive last 24 hours -now following commands. -MRI results reviewed. ASSESSMENT, MANAGEMENT, and DECISION MAKING: Patient is a 62 yo female with h/o bipolar, EtOH who presented to [facility] 08/12 after being found unresponsive by . [...] esophagus presenting in transfer from [facility], suspected to be in cardiogenic shock and [...] PHART 7.56* -- 7.54* 7.51* 7.48* 7.53* HQX0YJD 31* -- 31* 30* 34* 26* PO2ART 92 -- 73* 62* 78* 48* KEU8TVM 27.3* -- 25.7 23.2 25.0 21.2 LACTATEVEN 1.6 1.6 1.2 1.6 1.5 1.3 MFZ7WOD 30 -- 30 30 30 21 PFRATIOART2 307 -- 243 207 260 229 VBG (Venous Blood Gas) Recent Labs 08/20/22 0541 08/19/22 1445 08/19/22 0507 08/18/2261408/16/222008 LACTATEVEN 1.6 1.6 1.2 1.6 1.5 Mixed Venous Sat Recent Labs 08/16/22201108/16/22 1558 08/16/22 1211 08/16/22 1117 08/16/22 0948 Z4ZKCR0 56.6 50.5 56.0 49.3 56.5 Objective: Vitals [...] 0541 08/19/22 1445 08/19/22 0507 08/18/22 0615 08/16/22 2009 08/16/22 1759 PHART 7.56* -- 7.54* 7.51* 7.48* 7.53* WVO1CZI 31* -- 31* 30* 34* 26* PO2ART 92 -- 73* 62* 78* 48* VQD0JBG 27.3* -- 25.7 23.2 25.0 21.2 LACTATEVEN 1.6 1.6 1.2 1.6 1.5 1.3 PRN4XFN 30 -- 30 30 30 21 PFRATIOART2 307 -- 243 207 260 229 VBG (Venous Blood Gas) Recent Labs 08/20/22 0541 08/19/22 1445 08/19/22 0507 08/18/22 0615 08/16/222008 LACTATEVEN 1.6 1.6 1.2 1.6 1.5 Mixed Venous Sat Recent Labs 08/16/22201108/16/22 1558 08/16/22 1211 08/16/22 1117 08/16/22 0948 S1KWWG0 56.6 50.5 56.0 49.3 56.5 Microbiology: 08/14, [...] potential sources identified. Low overall suspicion for INVESTIGATIONS CHIEF infection given recent MRI and improvement in [...] for airway protection Daryn Ghosh * Shashi Yonug - 08/19/2022 1:25 PM EDT Rocket Engine Mechanic Encounter Note Patient Name: Ishan Irving : [id number] MR#: [id number] Admit Date: 08/14/2022 11:11 PM Hospital Day 5 days Narrative: Self initiated visit to patient for Spiritual support in a regular unit rounds. Assessment: Patient is very busy with nurses. Not a good time for [employer] visit. Intervention and Outcome: An attempted visit [...] for Consult? finanacial concerns Social Work Response: MATERIAL LOADER attempted to contact Ishan's , Antonio, to offer support. No one picked up, so MATERIAL LOADER left message with contact information. Follow Up Needed: Follow for continued support. * Neva Erazo PT - 08/19/2022 11:37 AM EDT PT Note Pt remains intubated and not yet approp for PT evaluation. Will follow-up when approp. Neva Erazo PT Pager [phone] * Adeola Russo RCP - 08/19/2022 9:19 [...] mental status. Adeola Russo RCP * Nancy Ernst RD - 08/19/2022 8:33 AM EDT Nutrition Progress Note Ishan Irving is a 62 y.o.??female??with h/o bipolar, DM, EtOH, esophagitis, who presented to [facility] 3 days ago after being found unresponsive [...] was able to discuss plan with provider [facility] 5903. Current Nutrition Regimen: Active Orders Diet NPO [...] encounter: 73.1 kg (161 lb 2.5 oz). [place] Body Weight (IBW) (kg): 45.45 Wt Readings [...] identified (Andrea JPEN J Parenteral Enteral Nutr. 2011; 36(3): 273-83) Nutrition to continue to follow up while inpatient Nancy Ernst RD Pager #:[phone] * Carlos Terry MD - 08/19/2022 8:13 [...] esophagus presenting in transfer from [facility], suspected to be in cardiogenic shock and found to be in mixed shock with concern for stress cardiomyopathy. 24 Hour Events/Subjective: Overnight: - NAEON. Vent settings PS 30% FiO2 /, 376Tv, though mildly tachypneic 23- 28RR. Passed [...] 0507 08/18/22 0615 08/16/22200808/16/22 1759 08/16/22 1602 PHART 7.54* 7.51* 7.48* 7.53* 7.53* WGC3MUL 31* 30* 34* 26* 30* PO2ART 73* 62* 78* 48* 55* ICF7HXD 25.7 23.2 25.0 21.2 24.9 LACTATEVEN 1.2 1.6 1.5 1.3 1.5 QVV6LPI 30 30 30 21 21 PFRATIOART2 243 207 260 229 262 VBG (Venous Blood Gas) Recent Labs 08/19/22 0507 08/18/22 0615 08/16/22200808/16/22 17508/16/22 1602 LACTATEVEN 1.2 1.6 1.5 1.3 1.5 Mixed Venous Sat Recent Labs 08/16/22201108/16/22 1558 08/16/22 1211 08/16/22 1117 08/16/22 0948 Z8QXLA0 56.6 50.5 56.0 49.3 56.5 Objective: Vitals [...] 1602 PHART 7.54* 7.51* 7.48* 7.53* 7.53* RZL1KLR 31* 30* 34* 26* 30* PO2ART 73* 62* 78* 48* 55* XFD6ZKZ 25.7 23.2 25.0 21.2 24.9 LACTATEVEN 1.2 1.6 1.5 1.3 1.5 TXR1SPS 30 30 30 21 21 PFRATIOART2 243 207 260 229 262 VBG (Venous Blood Gas) Recent Labs 08/19/22 0507 08/18/22 0615 08/16/22200808/16/22 1759 08/16/22 1602 LACTATEVEN 1.2 1.6 1.5 1.3 1.5 Mixed Venous Sat Recent Labs 08/16/22201108/16/22 1558 08/16/22 1211 08/16/22 1117 08/16/22 0948 C9VBAF0 56.6 50.5 56.0 49.3 56.5 Microbiology: 08/14, [...] from hemodynamic perspective, off dobutamine/pressors and with [place] now removed. Still intubated with minimal support, but unfortunately mental status continues to preclude extubation despite sedation now being held for 48 hours. Neurology was consulted yesterday given continued altered mental status, and recommended CTH/EEG. CT Head was unremarkable, and EEG demonstrated findings consistent with toxic metabolic encephalopathy. Will reach out to neurology today regarding possibleneed for MRI vs. INVESTIGATIONS CHIEF infection workup. Will diurese given net positivity [...] [facility] #[id number] Cardiology Staff Addendum ?? Ishan Orlando Aristides is a 62 y.o. female whom I [...] EtOH, esophagitis, who presented to [facility] 3 days ago after being found unresponsive at home. Patient found to have likely pneumonia +/- aspiration, newly reduced EF. 24 hr events/subjective: -on beta blockers -afebrile, high WBC -Secretions - moderate -I/Os positive last 24 hours -still not following commands. ASSESSMENT, MANAGEMENT, and DECISION MAKING: Patient is a 62 yo female with h/o bipolar, EtOH who presented to [facility] 08/12 after being found unresponsive by . [...] CK Recent Labs 08/14/22 2355 PROBNP >35,000* ABG (Arterial Blood Gas) [...] passed SBT intubated for airway protection Daryn Abrahamr * Alfonso Blackwood MD - 08/18/2022 9:43 AM EDT Critical Care Medicine Staff Progress Note 62 y.o. female with h/o bipolar, DM, EtOH, esophagitis, who presented to [facility] 3 days ago after being found unresponsive [...] bipolar, EtOH who presented to [facility] 08/12 after being found unresponsive by . [...] CK Recent Labs 08/14/22 2355 PROBNP >35,000* ABG (Arterial Blood Gas) [...] esophagus presenting in transfer from [facility], suspected to be in cardiogenic shock and found to be in mixed shock with concern for stress cardiomyopathy. 24 Hour Events/Subjective: Overnight: - NAEON. Vent settings PS 30% FiO2 13/8, 376Tv, though mildly tachypneic 23- 28RR. Passed SVT. Cardiac numbers CI 2.8, SVR 1500, PA 31/15, 20 this AM off pressors and dobutamine. Sedation off. Last ABG 7.. This AM: - Resting comfortably in no [...] % ABG (Arterial Blood Gas) Recent Labs 08/18/2261408/16/22200808/16/22175808/16/22 1602 08/16/22 1216 PHART 7.51* 7.48* 7.53* 7.53* 7.52* IXI6NHI 30* 34* 26* 30* 30* PO2ART 62* 78* 48* 55* 59* FBP2TLP 23.2 25.0 21.2 24.9 24.2 LACTATEVEN 1.6 1.5 1.3 1.5 1.8 AIH2EBY 30 30 21 21 21 PFRATIOART2 207 260 229 262 281 VBG (Venous Blood Gas) Recent Labs 08/18/2261408/16/22200808/16/22175808/16/22 1602 08/16/22 1216 LACTATEVEN 1.6 1.5 1.3 1.5 1.8 Mixed Venous Sat Recent Labs 08/16/22201108/16/22 1558 08/16/22 1211 08/16/22 1117 08/16/22 0948 Q3QAGQ4 56.6 50.5 56.0 49.3 56.5 PA Catheter #'s PA Catheter PAP (mmHg): 31/15 (08/18/22 0800) PAP (mean): 20 (08/18/22 0800) PCWP (mmHg): 6 mmHg (08/16/222014) CO (l/min): 4.8 l/min (08/18/22430) CI (l/min/m2): 2.8 l/min/m2 (08/18/22430) SVR (dyne*sec)/cm2: 1481 (dyne*sec)/cm2 (08/18/22430) SVRI (dyne*sec)/cm2: 2474 (dyne*sec)/cm5 (08/18/22430) Stroke Volume (ml): 42.8 ml (08/18/22430) PVR (dyne*sec)/cm2: 215 (dyne*sec)/cm2 (08/16/222014) SVO2 (%): [...] 64.2* 65.0* 64.4* 67.7* 68.0* Recent Labs 08/18/22 0230 08/17/22212808/17/22 1515 08/17/22 0045 08/16/22 1800 08/16/22 0810 [...] displayed. LFTs Recent Labs 08/15/22 0950 08/15/22 030 [...] 0736 08/18/22 0231 08/18/22 0115 08/17/22 2304 08/17/22200508/17/22 1847 08/17/22 1742 08/17/22 1644 08/17/22 1510 08/17/22 1341 08/17/22 1131 08/17/22 0927 POCGLU 175 176 168 188 161 169 189 195 140 130 146 170 Heme No results for input(s): LDH, HAPTOGLOBIN, URICACID in the last 168 hours. ABG (Arterial Blood Gas) Recent Labs 08/18/22 0615 08/16/22200808/16/22 17508/16/22 1602 08/16/22 1216 PHART 7.51* 7.48* 7.53* 7.53* 7.52* XTU9BYY 30* 34* 26* 30* 30* PO2ART 62* 78* 48* 55* 59* CEH1KBK 23.2 25.0 21.2 24.9 24.2 LACTATEVEN 1.6 1.5 1.3 1.5 1.8 MVZ7SJY 30 30 21 21 21 PFRATIOART2 207 260 229 262 281 VBG (Venous Blood Gas) Recent Labs 08/18/22 0615 08/16/22200808/16/22 17508/16/22 1602 08/16/22 1216 LACTATEVEN 1.6 1.5 1.3 1.5 1.8 Mixed Venous Sat Recent Labs 08/16/22201108/16/22 1558 08/16/22 1211 08/16/22 1117 08/16/22 0948 G9GXBX7 56.6 50.5 56.0 49.3 56.5 Microbiology: 08/14, [...] pressor/inotrope support today and thus will remove [place] catheter. She is also on minimal ventilator [...] EtOH, esophagitis, who presented to [facility] 3 days ago after being found unresponsive [...] was able to discuss plan with provider [facility] 5904. All Active TF Orders: Tubefeeding Orders [...] encounter: 71.9 kg (158 lb 8 oz). [place] Body Weight: 45.5 kg Usual Body Weight: [...] up while inpatient Nancy Ernst RD Pager #:[phone] * Jigar Cherry RN - 08/17/2022 10:09 [...] EtOH, esophagitis, who presented to [facility] 3 days ago after being found unresponsive [...] (L) 08/16/2022 PF 260 on 30% PSV /5 T/L/D Mcrae 08/15 ETT 08/14 CVL 08/15 Elida 08/15 ASSESSMENT, MANAGEMENT, and DECISION MAKING: Patient is a 62 yo female with h/o bipolar, EtOH who presented to [facility] 08/12 after being found unresponsive by . [...] iron deficiency anemia, GERD c/b esophagitis & Farerll's esophagus presenting in transfer from [facility], suspected to be in cardiogenic shock and [...] ABG (Arterial Blood Gas) Recent Labs 08/16/22 2009 08/16/22 1759 08/16/22 1602 08/16/22 1216 08/16/22 0817 PHART 7.48* 7.53* 7.53* 7.52* 7.46* IWR1YMY 34* 26* 30* 30* 36 PO2ART 78* 48* 55* 59* 68* GVN6PAL 25.0 21.2 24.9 24.2 24.8 LACTATEVEN 1.5 1.3 1.5 1.8 2.2 MFP7QFE 30 21 21 21 21 PFRATIOART2 260 229 262 281 324 VBG (Venous Blood Gas) Recent Labs 08/16/22200808/16/22 1759 08/16/22 1602 08/16/22 1216 08/16/22 0817 LACTATEVEN 1.5 1.3 1.5 1.8 2.2 Mixed Venous Sat Recent Labs 08/16/22201108/16/22 1558 08/16/22 1211 08/16/22 1117 08/16/22 0948 J5TEOJ5 56.6 50.5 56.0 49.3 56.5 PA Catheter #'s PA Catheter PAP (mmHg): 64/38 (08/17/22 1000) PAP (mean): 50 (08/17/22 1000) PCWP (mmHg): 6 mmHg (08/16/222014) CO (l/min): [...] 0817 PHART 7.48* 7.53* 7.53* 7.52* 7.46* PMB0GZJ 34* 26* 30* 30* 36 PO2ART 78* 48* 55* 59* 68* JNT2FMI 25.0 21.2 24.9 24.2 24.8 LACTATEVEN 1.5 1.3 1.5 1.8 2.2 CUD6AGH 30 21 21 21 21 PFRATIOART2 260 229 262 281 324 VBG (Venous Blood Gas) Recent Labs 08/16/22200808/16/22175808/16/22 1602 08/16/22 1216 08/16/22 0817 LACTATEVEN 1.5 1.3 1.5 1.8 2.2 Mixed Venous Sat Recent Labs 08/16/22201108/16/22 1558 08/16/22 1211 08/16/22 1117 08/16/22 0948 P1BKOM0 56.6 50.5 56.0 49.3 56.5 Troponin - [...] improvement in cardiac index. Contacted [facility] this morning, 72hr BCx remain NGTD. However, [...] zac Avila MD Internal Medicine, PGY-1 Cardiology [facility] #[id number] Cardiology Staff Addendum ?? Ishan Irving??is [...] FACP, FASE Cardiovascular Medicine * Richard Alva, PAYING TELLER - 08/16/2022 10:32 PM EDT AMV Protocol: [...] continue to manage per AMV/SBT protocol. RICHARD ALVA, PAYING TELLER * Adi Luo RCP - 08/16/2022 3:59 [...] EtOH, esophagitis, who presented to [facility] 3 days ago after being found unresponsive [...] Recent Labs 08/16/22 0336 08/15/22 0305 08/14/22 235 WBC 29.8* 39.8* 36.7* HGB 9.3* 10.2* [...] Last Ca, Mg, Phos Recent Labs 08/16/22 033 CALCIUM 8.1* PHOS 2.7 MAGNESIUM 0.99 Last [...] bipolar, EtOH who presented to [facility] 08/12 after being found unresponsive by . [...] ICU Progress Note Patient info: Name: Ishan Irvnig : 1960 PCP: Chris Stanley APRN PCP phone number: [phone] Date of Admission: 08/14/2022 ( Hospital Day [...] esophagus presenting in transfer from [facility], suspected to be in cardiogenic shock and [...] 0.04 Units/min (08/16/22848) ??? DOBUTamine 5 mcg/kg/min (08/16/22799) ??? fentaNYL Stopped (08/16/22804) ??? propofoL 20 [...] % ABG (Arterial Blood Gas) Recent Labs 08/16/2281608/16/2244008/15/22235808/15/22200708/15/22 1616 PHART 7.46* 7.47* 7.46* 7.44 7.38 CEC2YWU 36 34* 36 30* 36 PO2ART 68* 71* 75* 78* 78* EEE8JDC 24.8 24.5 24.7 19.7* 20.8 LACTATEVEN 2.2 1.7 2.2 1.6 1.8 TXH8KFZ 21 25 25 25 30 PFRATIOART2 324 284 300 312 260 VBG (Venous Blood Gas) Recent Labs 08/16/22 0808/16/2244008/15/22235808/15/22200708/15/22 1616 LACTATEVEN 2.2 1.7 2.2 1.6 1.8 Mixed Venous Sat Recent Labs 08/16/22 0808/16/224 08/16/2221208/16/22 0004 08/15/222009 R1PPGV0 48.7 54.2 51.3 46.3 49.8 PA Catheter #'s PA Catheter PAP (mmHg): 30/17 (08/16/22 06) PAP (mean): 22 (08/16/22599) CO (l/min): 3 l/min (08/16/22799) CI (l/min/m2): 1.8 l/min/m2 (08/16/22799) SVR (dyne*sec)/cm2: 1680 (dyne*sec)/cm2 (08/16/22799) SVRI (dyne*sec)/cm2: 2587 (dyne*sec)/cm5 (08/15/22 1155) Stroke Volume (ml): 30.5 ml (08/15/22 1155) SVO2 (%): 48.7 % (08/16/22799) CVP (mmHg): [...] 2140 08/15/22 1620 08/15/22 0950 08/15/22 0305 08/14/222354 NA -- 138 -- 138 -- 140 [...] 1.40* LFTs Recent Labs 08/15/22 0950 08/15/22 0305 [...] 1616 PHART 7.46* 7.47* 7.46* 7.44 7.38 XKK3GOT 36 34* 36 30* 36 PO2ART 68* 71* 75* 78* 78* VWS7UXF 24.8 24.5 24.7 19.7* 20.8 LACTATEVEN 2.2 1.7 2.2 1.6 1.8 MPX4STM 21 25 25 25 30 PFRATIOART2 324 284 300 312 260 VBG (Venous Blood Gas) Recent Labs 08/16/22 0817 08/16/22 0441 08/15/22235808/15/22200708/15/22 1616 LACTATEVEN 2.2 1.7 2.2 1.6 1.8 Mixed Venous Sat Recent Labs 08/16/22 0820 08/16/22 0444 08/16/22 0213 08/16/22 0004 08/15/222009 S2URCU6 48.7 54.2 51.3 46.3 49.8 Troponin - [...] improvement in cardiac index. Contacted [facility] this morning, 72hr BCx remain NGTD. However, [...] - trend troponins to peak ?? Renal/Fluids/Electrolytes: #AMRILIN - Likely in setting of low perfusion [...] zac Avila MD Internal Medicine, PGY-1 Cardiology [facility] #[id number] Cardiology Staff Addendum ?? Ishan Irving??is [...] FACP, FASE Cardiovascular Medicine * Richard Alva, PAYING TELLER - 08/15/2022 9:04 PM EDT AMV Protocol: [...] transferred to the ED at [facility]. Per the patient she was following simple commands while at [facility]. Discussed her current status with the family at the bedside. * Vanessa Escalona MD - 08/15/2022 10:28 AM EDT Critical Care Medicine Staff Progress Note 62 y.o. female with h/o bipolar, DM, EtOH, esophagitis, who presented to [facility] 3 days ago after being found unresponsive [...] heparin, ASA and Lasix. En route to [facility] her pressor requirement increased to include Levophed [...] bipolar, EtOH who presented to [facility] 08/12 after being found unresponsive by . [...] PCP: Chris Stanley APRN PCP phone number: [phone] Date of Admission: 08/14/2022 ( Hospital Day [...] esophagus presenting in transfer from [facility], suspected to be in cardiogenic shock and found to be in mixed shock with concern for stress cardiomyopathy. 24 Hour Events/Subjective: Yesterday: -- Overnight: - [place] was floated - now off dobutamine and [...] Blood Gas) Recent Labs 08/15/22 0555 08/15/22 53008/15/2231008/14/222356 PHART -- 7.30* 7.25* 7.25* JUB8SOR -- 41 38 42 PO2ART -- 117* 112* 242* TWQ2FOM -- 19.6* 16.0* 17.9* LACTATEVEN 3.1* 3.6* 1.9 2.6* FXO7RBS -- 40 40 60 PFRATIOART2 -- 292 280 403 VBG (Venous Blood Gas) Recent Labs 08/15/22 0555 08/15/2253008/15/2231008/14/222356 LACTATEVEN 3.1* 3.6* 1.9 2.6* Mixed Venous Sat Recent Labs 08/15/2233 08/15/22 0113 N5YIHC8 63.7 63.3 PA Catheter #'s PA Catheter [...] 08/14/22 2357 PHART -- 7.30* 7.25* 7.25* NRS1AYW -- 41 38 42 PO2ART -- 117* 112* 242* EXR1NET -- 19.6* 16.0* 17.9* LACTATEVEN 3.1* 3.6* 1.9 2.6* EBA1EMZ -- 40 40 60 PFRATIOART2 -- 292 280 403 VBG (Venous Blood Gas) Recent Labs 08/15/22 0555 08/15/22 0531 08/15/22 0311 08/14/22 2357 LACTATEVEN 3.1* 3.6* 1.9 2.6* Mixed Venous Sat Recent Labs 08/15/22 0533 08/15/22 0113 Q9LOCF2 63.7 63.3 Troponin HS: 617 at midnight [...] few days of hospitalization at [facility]. Will keep her on broad spectrum antibiotics. Will monitor blood cultures obtained here as well as those obtained at [facility] prior to transfer. Her TTE appears to [...] Vancomycin & zosyn - Call [facility] in AM to inquire about blood culture results #Routine Diet: NPO diet (Give Meds) DVT prophylaxis: heparin gtt GI Prophylaxis: home PPI Code Status: Attempt Cardiopulmonary Resuscitation - Inpatient Alternative Medical Decision Maker: zac Streeter MD Internal Medicine, PGY-2 Cardiology [facility] #[id number] Cardiology Staff Addendum ?? Ishan Irving [...] ILL WITH THESE DIAGNOSES BEING MANAGED BY CV TEAM: #Shock, distributive/septic #Multifocal pneumonia leading to [...] of the Day: 23:30 [facility] +10 60% ARDS [...] alarms set appropriately & audible. NSR on testing consultant. Lungs are clear. Blood sugar 156. G tube siteis clean & dry. 1755: Report given to 1 David Segovia. 1800: Phase 2 criteria met. * Aron [...] BX performed by David Dejesus MD at [facility] ENDOSCOPY ??? PRO COLONOSCOPY, DIAGNOSTIC N/A 03/01/2020 COLONOSCOPY, DIAGNOSTIC performed by David Dejesus MD at [facility] ??? PRO ENDOSCOPIC US EXAM, ESOPH N/A 03/31/2022 UPPER EUS- ENDOSCOPIC ULTRASOUND performed by David Dejesus MD at [facility] ??? PRO UPPER GI ENDOSCOPY, BIOPSY N/A 04/03/2014 UPPER GASTROINTESTINAL ENDOSCOPY,WITH BIOPSY SINGLE OR MULTIPLE performed by David [facility]jesus MDat [facility] ??? PRO UPPER GI ENDOSCOPY, BIOPSY N/A 03/20/2016 EGD WITH BIOPSY performed by David Dejesus MD at [facility] ??? PRO UPPER GI ENDOSCOPY, BIOPSY N/A 11/22/2018 EGD WITH BIOPSY (WRVU 2.49) performed by David Dejesus MD at [facility] ??? PRO UPPER GI ENDOSCOPY, BIOPSY N/A 03/01/2020 UPPER GASTROINTESTINAL ENDOSCOPY,WITH BIOPSY SINGLE OR MULTIPLE (WRVU 2.49) performed by [facility] HOSPITAL ENDOSCOPY ??? PRO UPPER GI ENDOSCOPY, BIOPSY N/A 09/23/2021 EGD WITH BIOPSY (WRVU 2.49) performed by David Dejesus MD at [facility] ENDOSCOPY ??? PRO UPPER GI ENDOSCOPY, BIOPSY N/A 03/31/2022 EGD WITH BIOPSY (WRVU 2.49) performed by David Dejesus MD at [facility] ENDOSCOPY ??? PRO UPPER GI ENDOSCOPY, BIOPSY N/A 07/03/2022 EGD WITH BIOPSY (WRVU 2.49) performed by David Dejesus MD at [facility] ENDOSCOPY ??? PRO UPPER GI ENDOSCOPY, DIAGNOSTIC N/A 04/03/2014 EGD, UPPER GI ENDOSCOPY performed by David Dejesus MD at [facility] ENDOSCOPY ??? PRO UPPER GI ENDOSCOPY, DIAGNOSTIC N/A 03/01/2020 EGD, UPPER GI ENDOSCOPY performed by David Dejesus MD at [facility] ENDOSCOPY Medications: No current facility-administered medications [...] for dosing. 15 mL 11 ??? Insulin [place], Disposable, (BD INSULIN PEN NEEDLE UF MINI) 31 x 3/16 Needle 1 Device by [facility].(Non-Drug; Combo Route) route 3 times daily as [...] Roland Pruett MD PCP: Chris Stanley APRN ([phone]) No chief complaint on file. ID: Ishan Irving is a 62 y.o. female w/ PMH of ??recent L femoral neck fracture,??bipolar disorder, resolving medication-induced Parkinsonism, insulin- dependent diabetes mellitus,??hx of alcohol use disorder (reported to be in remission for 1.5 years) c/b chronic pancreatitis, iron deficiency anemia,??GERD??c/b??esophagitis &??Farrell's esophagus, transferred from [facility] to [facility] on 08/14/2022, now on Hospital Day #16, [...] deficiency anemia,?? GERD??c/b??esophagitis &??Farrell's esophagus, admitted to [facility] on 08/14/2022, now on Hospital Day #16, [...] with minimal response. Brought to [facility] and given additional narcan with no response. OSH Labs prior to transfer to [facility] Cardiology Team: Labs: - ABG: pH 7.43, [...] on diuresis with lasix and transferred to [facility] on 08/14. Patient arrived to [facility] requiring approximately NE30, dobutamine 2.5, and epi 5. Patient was started on goal directed therapy with losartan, metoprolol 25mg daily, spirinolactone 25mg daily, [id number] daily and additionally started on empagliflozin 10mg daily. Patient being followed by SHIP RUNNER and recommend NPO given significant dysphagia. Patient [...] BX performed by David Dejesus MD at [facility] ENDOSCOPY ??? PRO COLONOSCOPY, DIAGNOSTIC N/A 03/01/2020 COLONOSCOPY, DIAGNOSTIC performed by David Dejesus MD at [facility] ENDOSCOPY ??? PRO ENDOSCOPIC US EXAM, ESOPH N/A 03/31/2022 UPPER EUS- ENDOSCOPIC ULTRASOUND performed by David Dejesus MD at [facility] ENDOSCOPY ??? PRO UPPER GI ENDOSCOPY, BIOPSY N/A 04/03/2014 UPPER GASTROINTESTINAL ENDOSCOPY,WITH BIOPSY SINGLE OR MULTIPLE performed by David Dejesus MDat [facility] END[facility] ??? PRO UPPER GI ENDOSCOPY, BIOPSY N/A 03/20/2016 EGD WITH BIOPSY performed by David Dejesus MD at [facility] ENDOSCOPY ??? PRO UPPER GI ENDOSCOPY, BIOPSY N/A 11/22/2018 EGD WITH BIOPSY (WRVU 2.49) performed by David Dejesus MD at [facility] ENDOSCOPY ??? PRO UPPER GI ENDOSCOPY, BIOPSY N/A 03/01/2020 UPPER GASTROINTESTINAL ENDOSCOPY,WITH BIOPSY SINGLE OR MULTIPLE (WRVU 2.49) performed by David Dejesus MD at [facility] ENDOSCOPY ??? PRO UPPER GI ENDOSCOPY, BIOPSY N/A 09/23/2021 EGD WITH BIOPSY (WRVU 2.49) performed by David Dejesus MD at [facility] ENDOSCOPY ??? PRO UPPER GI ENDOSCOPY, BIOPSY N/A 03/31/2022 EGD WITH BIOPSY (WRVU 2.49) performed by David Dejesus MD at [facility] ENDOSCOPY ??? PRO UPPER GI ENDOSCOPY, BIOPSY N/A 07/03/2022 EGD WITH BIOPSY (WRVU 2.49) performed by David Dejesus MD at [facility] ENDOSCOPY ??? PRO UPPER GI ENDOSCOPY, DIAGNOSTIC N/A 04/03/2014 EGD, UPPER GI ENDOSCOPY performed by David Dejesus MD at [facility] ENDOSCOPY ??? PRO UPPER GI ENDOSCOPY, DIAGNOSTIC N/A 03/01/2020 EGD, UPPER GI ENDOSCOPY performed by David Dejesus MD at [facility] ENDOSCOPY Social History: Social History Socioeconomic [...] for dosing. 15 mL 11 ??? Insulin [place], Disposable, (BD INSULIN PEN NEEDLE UF MINI) [...] Gas): No results found for: PHART, PO2ART, AIX8TNY, UQI2RZR VBG (Venous Blood Gas): No results for input(s): PHVEN, MLC2ZAO, PO2VEN, LXV7DRT, BEVEN, TTG3EHF in the last 72 hours. EKG: Lab [...] who have questions please contact the health pediatric acute care unit nurse that requested your imaging first. Abdomen 1 [...] who have questions please contact the health pediatric acute care unit nurse that requested your imaging first. Electronically signed by: Liliane Adams MD, [facility] ([phone]), at 08/15/2022 9:05 AM XR Chest One [...] who have questions please contact the health pediatric acute care unit nurse that requested your imaging first. Abdomen 1 [...] who have questions please contact the health pediatric acute care unit nurse that requested your imaging first. Chest One [...] who have questions please contact the health pediatric acute care unit nurse that requested your imaging first. Electronically signed by: Alfonso Adams MD, [facility] ([phone]), at 08/16/2022 10:[address] Head wo [...] who have questions please contact the health pediatric acute care unit nurse that requested your imaging first. Electronically signed by: Moustapha Correa MD, [facility] ([phone]), at 08/16/2022 11:19 PM XR Abdomen 1 [...] who have questions please contact the health pediatric acute care unit nurse that requested your imaging first. Head wo Contrast (Generic) (Exam End: 08/18/2022 3:14 PM) Impression No acute intracranial process. Thank you for letting us participate in the care of this patient. If you are a health care provider and have any questions regarding this report, please contact the number below. For patients who have questions please contact the health pediatric acute care unit nurse that requested your imaging first. Electronically signed by: Antonio Jordan MD, [facility] ([phone]), at 08/18/2022 3:18 PM XR Chest One [...] who have questions please contact the health pediatric acute care unit nurse that requested your imaging first. Electronically signed by: Alan De Guzman MD, [facility] ([phone]), at 08/19/2022 3:14 PM MRI Brain wo Contrast (Exam End: 08/19/2022 10:15 PM) Impression No acute infarction, mass or mass effect. Thank you for letting us participate in the care of this patient. If you are a health care provider and have any questions regarding this report, please contact the number below. For patients who have questions please contact the health pediatric acute care unit nurse that requested your imaging first. Electronically signed by: Jagdeep Lee MD, [facility] ([phone]), at 08/20/2022 3:34 AM XR Chest for Verifying Vascular Access PICC [...] who have questions please contact the health pediatric acute care unit nurse that requested your imaging first. Electronically signed by: Alan De Guzman MD, [facility] ([phone]), at 08/19/2022 4:[address] Hip w [...] who have questions please contact the health pediatric acute care unit nurse that requested your imaging first. Electronically signed by: Aicha Chowdhury MD, [facility] ([phone]), at 08/21/2022 9:[address] Chest w [...] who have questions please contact the health pediatric acute care unit nurse that requested your imaging first. Electronically signed by: Jagdeep Lee MD, [facility] ([phone]), at 08/21/2022 6:56 AM XR Hip 2-3 Views Left (Exam End: 08/22/2022 12:19 AM) Impression No radiographic evidence of infection. Thank you for letting us participate in the care of this patient. If you are a health care provider and have any questions regarding this report, please contact the number below. For patients who have questions please contact the health pediatric acute care unit nurse that requested your imaging first. Electronically signed by: Viktor Cervantes MD, [facility] ([phone]), at 08/22/2022 12:43 PM XR Pelvis (Generic) (Exam End: 08/22/2022 12:19 AM) Impression No radiographic evidence of infection status post left hip ORIF. Thank you for letting us participate in the care of this patient. If you are a health care provider and have any questions regarding this report, please contact the number below. For patients who have questions please contact the health pediatric acute care unit nurse that requested your imaging first. Electronically signed by: Richard Billings MD, [facility] ([phone]), at 08/22/2022 10:[address] Angiogram Coronary [...] who have questions please contact the health pediatric acute care unit nurse that requested your imaging first. Electronically signed by: Arlette Mays MD, [facility] ([phone]), at 08/27/2022 11:[address] Chest wo Contrast (Generic) (Exam End: 08/27/2022 8:58 AM) Impression Stable findings of multifocal pneumonia. No interval abnormality. Thank you for letting us participate in the care of this patient. If you are a health care provider and have any questions regarding this report, please contact the number below. For patients who have questions please contact the health pediatric acute care unit nurse that requested your imaging first. Electronically signed by: MINH QUIROGA MD, [facility] ([phone]), at 08/27/2022 10:48 AM Medications: Scheduled: ??? [...] ??? insulin lispro 1-5 Units Subcutaneous Q4H JARED ??? ergocalciferoL (vitamin D2) 50,000 Units Per [...] BID ??? acetaminophen 1,000 mg Oral Q8H JARED ??? thiamine 100 mg Intravenous Daily Continuous: ??? tube feeding diet 1,176 mL (08/30/22 06) PRN: ondansetron, iohexoL, melatonin, polyethylene glycoL, senna, [...] fracture s/p surgical fixation , admitted to [facility] on 08/14/2022, now on Hospital Day #16, [...] level 08/29. - level 25mg/L 08/29 - [facility] to evaluate. - Reach out to neurology, [...] Internal Medicine PGY1 Medicine Team: Vega, Pager #[phone] Date: 08/30/2022 Associated attestation - Alfonso Navarrete MD - 08/30/2022 9:19 PM EDT [address] Medicine Service Attending Documentation I certify [...] -continue tube feeds via DHT -plan for [facility]NER evaluation and MBS tomorrow #stress cardiomyopathy -holding [...] for dosing. 15 mL 11 ??? Insulin [place], Disposable, (BD INSULIN PEN NEEDLE UF MINI) [...] BX performed by David Dejesus MD at [facility] ENDOSCOPY ??? PRO COLONOSCOPY, DIAGNOSTIC N/A 03/01/2020 COLONOSCOPY, DIAGNOSTIC performed by David Dejesus MD at [facility] ENDOSCOPY ??? PRO ENDOSCOPIC US EXAM, ESOPH N/A 03/31/2022 UPPER EUS- ENDOSCOPIC ULTRASOUND performed by David Dejesus MD at [facility] ENDOSCOPY ??? PRO UPPER GI ENDOSCOPY, BIOPSY N/A 04/03/2014 UPPER GASTROINTESTINAL ENDOSCOPY,WITH BIOPSY SINGLE OR MULTIPLE performed by David Dejesus MDat [facility] END[facility] ??? PRO UPPER GI ENDOSCOPY, BIOPSY N/A 03/20/2016 EGD WITH BIOPSY performed by David Dejesus MD at [facility] ENDOSCOPY ??? PRO UPPER GI ENDOSCOPY, BIOPSY N/A 11/22/2018 EGD WITH BIOPSY (WRVU 2.49) performed by David Dejesus MD at [facility] ENDOSCOPY ??? PRO UPPER GI ENDOSCOPY, BIOPSY N/A 03/01/2020 UPPER GASTROINTESTINAL ENDOSCOPY,WITH BIOPSY SINGLE OR MULTIPLE (WRVU 2.49) performed by David Dejesus MD at [facility] ENDOSCOPY ??? PRO UPPER GI ENDOSCOPY, BIOPSY N/A 09/23/2021 EGD WITH BIOPSY (WRVU 2.49) performed by David Dejesus MD at [facility] ENDOSCOPY ??? PRO UPPER GI ENDOSCOPY, BIOPSY N/A 03/31/2022 EGD WITH BIOPSY (WRVU 2.49) performed by David Dejesus MD at [facility] ENDOSCOPY ??? PRO UPPER GI ENDOSCOPY, BIOPSY N/A 07/03/2022 EGD WITH BIOPSY (WRVU 2.49) performed by David Dejesus MD at [facility] ENDOSCOPY ??? PRO UPPER GI ENDOSCOPY, DIAGNOSTIC N/A 04/03/2014 EGD, UPPER GI ENDOSCOPY performed by David Dejesus MD at [facility] ENDOSCOPY ??? PRO UPPER GI ENDOSCOPY, DIAGNOSTIC N/A 03/01/2020 EGD, UPPER GI ENDOSCOPY performed by David Dejesus MD at [facility] ENDOSCOPY Social History and Habits: Social [...] PCP: Chris Stanley APRN PCP phone number: [phone] Date of Admission: 08/14/2022 ( Hospital Day [...] esophagus presenting in transfer from [facility], suspected to be in cardiogenic shock. Ms. [...] 4L NC. On arrival to [facility], the patient was given further doses of [...] (80 lasix) & dobutamine withconsequent transfer to [facility]. On arrival, the patient was requiring requiring [...] to touch. Neuro: RASS -5 Lines/Drains/Airways Lines: [place], A line, central line EKG (08/15/22): Sinus [...] in the last 7068 hours. Invalid input(s): [id number] No results for input(s): POCGLU in the last 168 hours. Heme No results for input(s): LDH, HAPTOGLOBIN, URICACID in the last 168 hours. ABG (Arterial Blood Gas) No results found for: PHART, PO2ART, HVH5CGI, MZG3GMU Microbiology: Microbiology Results (Last 30 days) No [...] Vancomycin & zosyn - Call [facility] in AM to inquire about blood culture [...] findings documented above, with additions and exceptions bela. The assessment and plan were formulated in [...] admission. Carlos Terry MD, MARYAN, FACC, FACP, FASE Cardiovascular Medicine documented in this encounter Procedure [...] sterile barriertechnique was used throughout. A 4 Eritrean glide catheter was placed as a nasoenteric [...] a suspected line-associated infection. Location of Procedure: [facility] Risks and Benefits: The risks and benefits [...] to the planned procedure. Hand Hygiene: The floating labor gang supervisor did perform hand hygiene prior to line insertion. Catheter type: PICC Lot number: [id number] Procedure Technique: Skin was prepped with chlorhexidine. [...] EEG ROUTINE - PROCDOC Pre-Procedure Diagnose(s): Encephalopathy [facility] Department of Neurology Inpatient Routine EEG Report [...] EtOH, esophagitis, who presented to [facility] 3 days ago after being found unresponsive at home. Patient found to have likely pneumonia +/- aspiration, newly reduced EF. Patient not on any sedation, not waking up. MEDICATIONS: -Depakote 500 mg x1 dose -Fentanyl gtt stopped 08/17 -Propofol gtt stopped 08/17 PRIOR EEG(s): -N/A METHODS: A 21 channel digitized electroencephalogram was performed in the [facility] Clinical Neurophysiology Laboratory. The 10/20 international system of electrode placement was used and bipolar and referential electrode montages were recorded. In addition to EEG the patient was monitored for EKGand lateral/vertical eye movements. Video was recorded during the session. TEMPLE MARKER'S REPORT: Performed by: Glendy MARCUS Patient was [...] final interpretation as written. Tyree Martin MD [facility] Epilepsy Program Department of Neurology * [...] follow. Cedric Gilbert MD Epilepsy Fellow P. [phone] * Jesenia Mejía MD - 08/15/2022 12:47 AM EDT Pulmonary Arterial Line Placement Procedure Note Indications: Catheter placed for diagnosis and treatment of instability. This insertion was not to replace a malfunctioning catheter. This insertion was not due to a suspected line-associated infection. Location of Procedure: [facility] Risks and Benefits: The risks and benefits [...] to the planned procedure. Hand Hygiene: The floating labor gang supervisor did perform hand hygiene prior to line insertion. Procedure Details: Insertion Site:internal jugular side:right Confirmation of Venous Placement: Venous placement was confirmed by transducing the pressure. Introducer Insertion Attempts: 1 Comments: See separate note Floating the [place]-Isabelle Catheter Attempts: 1 Sterile Dressing: CHG Impregnated [...] to the planned procedure. Hand Hygiene: The floating labor gang supervisor did perform hand hygiene prior to arterial [...] anticipated to discharge home with family with [facility] and 24/7 care 09/25/22. Medical team has cleared Ishan to return home with [facility]. Patient [facility] with a SOC 09/26/22. [facility] has done education on administration of tube feeds and has stated they did well. Delivery of formulas was done 09/24/22 at 1700. Needs for Transition of Care: Plan for discharge is: Home w/ Services Outpatient Agency/Support Group Needs: None Home Health Services: Occupational Therapy, Physical Therapy, Medication checks, Registered Nurse, Home Health Aide, Litigation Services Manager Agency Referrals & Follow-up Care: Contact information for follow-up Infusion Therapy, [facility] [address] [facility] [address] [facility], [place] [address] [facility] [address] Transportation: ambulance family or friend will provide [...] formulated with input from patient, Ishan and , Antonio and team. All are in agreement with plan. Ashlee Miramontes RN [phone] Pager [phone] * Plan of Care - Leann Harding [...] plan for patient to discharge 09/26/[address] [facility] and30/11 care. Plan for [facility] to do a [...] and family prefer to discharge home with [facility] and/7 care. Medical team is aware of patient and family preference. [facility] Transportation: ambulance vs family Barriers to discharge: Discharge planning Supports: Caregiver support Financial: LTC Medicaid *Submitted 09/14 Plan going forward: Care Management will continue to follow and assist with discharge planning and coordination of care as indicated. Anticipated Date of Discharge: 09/25/2022 Ashlee Miramontes RN [phone] Pager [phone] * Plan of Care - Leann Harding [...] ADLs]: Hands on Surveillance [continuous indirect monitoring]: Leelee dubose Patient-specific fall prevention interventions for sensory deficits [...] Hands on/Eyes on Surveillance [continuous indirect monitoring]: Joelleimo, room near nursing station, call marshall within [...] RW. BG monitored and insulin coverage per MAR orders ?? PLAN MOVING FORWARD Tube feeding [...] prior to going home. RUPAL spoke to Antonio, who stated Ishan does not want to go to rehab, she wants to go home. RUPAL spoke to Ishan regarding discharge planning. RUPAL and amusement ride inspector attempted to give education on importance of utilizing rehab to ensure a safe discharge home. Patient is adamantly refusing rehab at this time. Medical team is aware of family wishes. Ashlee Miramontes RN, CM [phone] Pager [phone] ADDENDUM 1341: Message received from Antonio anaya, expressing extreme frustration regarding needfor rehab before returning home. Family preference is for Ishan to return home with [facility] despite therapy recommendations for rehab. Antonio requesting a return call from RUPAL and . has been notified. RUPAL left a message with and is currently awaiting a return call. Referrals submitted per Antonio anaya's request. The Nanoscience Technician, Antonio anaya has been provided a list of Home Health Agencies/DME vendors which serve their preferred geographic area. A letter describing our affiliations was reviewed with them and they were educated about their right to choose where referrals are placed. RUPAL Provided patient with [facility] Star Quality Rating for Home care hand out. Patient requests referral to : [facility] [address] [place] [address] Expected date of discharge: 09/25/22. Referral routed to the Materials Engineer for matching with agency/vendor and to provide any required information. New Tube Feeds: [address] , [place] [address] Toll Free: Nursing Pharmacy Ashlee Miramontes RN [phone] Pager [phone] * Plan of Care - Radha Lockett [...] Referral Placed: 09/10/2022 Last Physical Therapy Recommendation: [facility] facility with to be determined Last Occupational Therapy Recommendation: acute rehabilitation facility with to be determined Plan for discharge is: Snf Facility / Swing Outpatient Agency/Support Group Needs: None Agency Referrals: Diane - pending decision [facility], no payer source. Ongoing discussion regarding possible contract. T[facility]anda [facility] - pending response ?? Transportation: ambulance Barriers to discharge: Discharge planning Supports: Caregiver support Financial: LTC Medicaid *Submitted 09/14 Plan going forward: Care Management will continue to follow and assist with discharge planning and coordination of care as indicated. Anticipated Date of Discharge: 09/21/2022 Ashlee Miramontes RN [phone] Pager [phone] * Plan of Care - Ama Mckoy [...] HOB higher than 30 degrees) Use a Around Knowledge chair cushion beneath patient at all times [...] follow in two weeks Discussed plan with: RN: Radha Please contact KHADRA LOU RN on pager [phone] or the wound care team at [phone] or pager [phone] with skin and wound care concerns or [...] New Referral Status: In Process *Application submitted 5/8 Referral Placed: 09/10/2022 Last Physical Therapy Recommendation: [facility] facility with to be determined Last Occupational Therapy Recommendation: acute rehabilitation facility with to be determined Plan for discharge is: Snf Facility / Swing Outpatient Agency/Support Group Needs: None Agency Referrals: Diane - pending decision [facility] - declined, no payer source. Ongoing discussion regarding possible contract. T[facility] [place] - pending response Transportation: ambulance Barriers to discharge: Discharge planning Supports: Caregiver support Financial: [facility] Medicaid *Submitted 09/14 Plan going forward: G-tube successfully placed 09/11, patient tolerating tube feeds at this time. Remains NPO. She is s/p ORIF for left femur fracture, currently requiring 2 assist FWW/gait belt for mobility. [place] [facility] Medicaid application has been submitted 09/14. Care Management will continue to follow and assist with discharge planning and coordination of care as indicated. Anticipated Date of Discharge: 09/18/2022 Marybeth Shelley RN, BSN Metal Grinder - Medicine Office of Care Management Office: Pager: [phone] * Plan of Care - Ama Mckoy [...] vs home w services Pending insurance for fdc medicaid Gastric retention band removal INDIVIDUALIZED FALL [...] vs home w/services Insurance pending for medicaid watermelon inspector care. INDIVIDUALIZED FALL PREVENTION INTERVENTIONS: Patient-specific fall [...] at this time. D5LR in place, infusing [id number]. Plan for IR to place G- tube around 1500. Speech and Full Charge Bookkeeper to floor, deferred assessment at that time [...] @100ml/hr. BG obtained Q4, insulin given per MAR. Incision in L greater trochanter, open to [...] REQUESTING PROVIDER: Molina Flores MD NAME: Ishan Irving : 1960 HPI: [...] There is delayed elevation of the larynx mcfp between the vallecula and piriform sinuses. It [...] BX performed by David Dejesus MD at [facility] ENDOSCOPY ??? PRO COLONOSCOPY, DIAGNOSTIC N/A 03/01/2020 COLONOSCOPY, DIAGNOSTIC performed by David Dejesus MD at [facility] ENDOSCOPY ??? PRO ENDOSCOPIC US EXAM, ESOPH N/A 03/31/2022 UPPER EUS- ENDOSCOPIC ULTRASOUND performed by David Dejesus MD at [facility] END[facility] ??? PRO UPPER GI ENDOSCOPY, BIOPSY N/A 04/03/2014 UPPER GASTROINTESTINAL ENDOSCOPY,WITH BIOPSY SINGLE OR MULTIPLE performed by David Dejesus MDat [facility] ??? PRO UPPER GI ENDOSCOPY, BIOPSY N/A 03/20/2016 EGD WITH BIOPSY performed by David Dejesus MD at [facility] ENDOSCOPY ??? PRO UPPER GI ENDOSCOPY, BIOPSY N/A 11/22/2018 EGD WITH BIOPSY (WRVU 2.49) performed by David Dejesus MD at [facility] END[facility]COPY ??? PRO UPPER GI ENDOSCOPY, BIOPSY N/A 03/01/2020 UPPER GASTROINTESTINAL ENDOSCOPY,WITH BIOPSY SINGLE OR MULTIPLE (WRVU 2.49) performed by David Dejesus MD at [facility] ENDOSCOPY ??? PRO UPPER GI ENDOSCOPY, BIOPSY N/A 09/23/2021 EGD WITH BIOPSY (WRVU 2.49) performed by David Dejesus MD at [facility] ENDOSCOPY ??? PRO UPPER GI ENDOSCOPY, BIOPSY N/A 03/31/2022 EGD WITH BIOPSY (WRVU 2.49) performed by David Dejesus MD at [facility] END[facility]COPY ??? PRO UPPER GI ENDOSCOPY, BIOPSY N/A 07/03/2022 EGD WITH BIOPSY (WRVU 2.49) performed by David Dejesus MD at [facility] ENDOSCOPY ??? PRO UPPER GI ENDOSCOPY, DIAGNOSTIC N/A 04/03/2014 EGD, UPPER GI ENDOSCOPY performed by David Dejesus MD at [facility] ENDOSCOPY ??? PRO UPPER GI ENDOSCOPY, DIAGNOSTIC N/A 03/01/2020 EGD, UPPER GI ENDOSCOPY performed by David Dejesus MD at [facility] SOCIAL HX: Social History Socioeconomic [...] for dosing. 15 mL 11 ??? Insulin Port[place], Disposable, (BD INSULIN PEN NEEDLE UF MINI) 31 x 3/16 Needle 1 Device by [facility].(Non-Drug; Combo Route) route 3 times daily as [...] ??? insulin lispro 1-10 Units Subcutaneous Q4H JARED ??? miconazole nitrate Topical (Top) BID ??? [...] Resp: [17-28] SpO2 SpO2: [90 %-100 %] 09/09 700 - 09/10 07 In: 3877 [I.V.:3547] Out: [...] who have questions please contact the health pediatric acute care unit nurse that requested your imaging first. Electronically signed by: Camille Garcia MD, [facility] ([phone]), at 09/10/2022 1:16 AM XR Chest One View Final Result 1. Reposition enteric tube now extending below the diaphragm and included [id number]. 2. Similar appearance of elevated right hemidiaphragm and linear/patchy bibasilar opacities which may represent atelectasis or possibly aspiration. Thank you for letting us participate in the care of this patient. If you are a health care provider and have any questions regarding this report, please contact the number below. For patients who have questions please contact the health pediatric acute care unit nurse that requested your imaging first. Electronically signed by: AUDI PERDOMO MD, [facility] ([phone]), at 09/05/2022 3:43 PM XR Abdomen 1 [...] who have questions please contact the health pediatric acute care unit nurse that requested your imaging first. Electronically signed by: Jagdeep Lee MD, [facility] ([phone]), at 09/04/2022 10:35 PM XR Chest One View Final Result 1. On [...] who have questions please contact the health pediatric acute care unit nurse that requested your imaging first. Electronically signed by: Jagdeep Lee MD, [facility] ([phone]), at 09/04/2022 10:35 PM XR Fluoro Barium Swallow (Modified/Video Swallow Pharynx) Final Result 1. Penetration of the airway and aspiration with thin liquids, especially with rapid sips of thin barium. 2. Flash penetration of nectar thick liquids from a straw. 3. Reflux of residual barium within the esophagus on multiple swallows. I have personally reviewed the image(s) and the resident's interpretation and agree with the findings, Alofnso Adams MD at 09/04/2022 10:57 AM Thank you for letting us participate in the care of this patient. If you are a health care provider and have any questions regarding this report, please contact the number below. For patients who have questions please contact the health pediatric acute care unit nurse that requested your imaging first. Electronically signed by: Alfonso Adams MD, [facility] ([phone]), at 09/04/2022 10:57 AM XR Fluoro Barium [...] who have questions please contact the health pediatric acute care unit nurse that requested your imaging first. Electronically signed by: Aron Billings MD, [facility] ([phone]), at 08/31/2022 12:[address] Angiogram Coronary [...] who have questions please contact the health pediatric acute care unit nurse that requested your imaging first. Electronically signed by: Arlette Mays MD, [facility] ([phone]), at 08/27/2022 11:[address] Chest wo Contrast (Generic) Final Result Stable findings of multifocal pneumonia. No interval abnormality. Thank you for letting us participate in the care of this patient. If you are a health care provider and have any questions regarding this report, please contact the number below. For patients who have questions please contact the health pediatric acute care unit nurse that requested your imaging first. Electronically signed by: MINH QUIROGA MD, [facility] ([phone]), at 08/27/2022 10:48 AM XR Hip 2-3 Views Left Final Result No radiographic evidence of infection. Thank you for letting us participate in the care of this patient. If you are a health care provider and have any questions regarding this report, please contact the number below. For patients who have questions please contact the health pediatric acute care unit nurse that requested your imaging first. Electronically signed by: Viktor Cervantes MD, [facility] ([phone]), at 08/22/2022 12:43 PM XR Pelvis (Generic) Final Result No radiographic evidence of infection status post left hip ORIF. Thank you for letting us participate in the care of this patient. If you are a health care provider and have any questions regarding this report, please contact the number below. For patients who have questions please contact the health pediatric acute care unit nurse that requested your imaging first. Electronically signed by: Richard Billings MD, [facility] ([phone]), at 08/22/2022 10:[address] Hip w [...] who have questions please contact the health pediatric acute care unit nurse that requested your imaging first. Electronically signed by: Aicha Chowdhury MD, [facility] ([phone]), at 08/21/2022 9:[address] Chest w [...] who have questions please contact the health pediatric acute care unit nurse that requested your imaging first. Electronically signed by: Jagdeep Lee MD, [facility] ([phone]), at 08/21/2022 6:56 AM MRI Brain wo Contrast Final Result No acute infarction, mass or mass effect. Thank you for letting us participate in the care of this patient. If you are a health care provider and have any questions regarding this report, please contact the number below. For patients who have questions please contact the health pediatric acute care unit nurse that requested your imaging first. Electronically signed by: Jagdeep Lee MD, [facility] ([phone]), at 08/20/2022 3:34 AM XR Chest for Verifying Vascular Access PICC [...] who have questions please contact the health pediatric acute care unit nurse that requested your imaging first. Electronically signed by: Alan De Guzman MD, [facility] ([phone]), at 08/19/2022 4:39 PM XR Chest One [...] who have questions please contact the health pediatric acute care unit nurse that requested your imaging first. Electronically signed by: Alan De Guzman MD, [facility] ([phone]), at 08/19/2022 3:[address] Head wo Contrast (Generic) Final Result No acute intracranial process. Thank you for letting us participate in the care of this patient. If you are a health care provider and have any questions regarding this report, please contact the number below. For patients who have questions please contact the health pediatric acute care unit nurse that requested your imaging first. Electronically signed by: Antonio Jordan MD, [facility] ([phone]), at 08/18/2022 3:18 PM XR Abdomen 1 [...] who have questions please contact the health pediatric acute care unit nurse that requested your imaging first. Head wo Contrast (Generic) Final Result No acute intracranial abnormality and no change from prior Thank you for letting us participate in the care of this patient. If you are a health care provider and have any questions regarding this report, please contact the number below. For patients who have questions please contact the health pediatric acute care unit nurse that requested your imaging first. Electronically signed by: Moustapha Correa MD, [facility] ([phone]), at 08/16/2022 11:19 PM XR Chest One [...] who have questions please contact the health pediatric acute care unit nurse that requested your imaging first. Electronically signed by: Alfonso Adams MD, [facility] ([phone]), at 08/16/2022 10:56 AM XR Abdomen 1 [...] who have questions please contact the health pediatric acute care unit nurse that requested your imaging first. Electronically signed by: Liliane Adams MD, [facility] ([phone]), at 08/15/2022 9:05 AM XR Abdomen 1 [...] who have questions please contact the health pediatric acute care unit nurse that requested your imaging first. Chest One [...] who have questions please contact the health pediatric acute care unit nurse that requested your imaging first. Chest One [...] who have questions please contact the health pediatric acute care unit nurse that requested your imaging first. Electronically signed by: [facility] ([phone]), at 08/15/2022 3:53 AM Film Library- Storage Only DX Chest Final [...] re-engaged. Discussed and seen with her outpatient butane compressor operator, Dr. Dejesus. Agree with placement of PEGw/IR [...] stricture. * Plan of Care - Rosie Anguiano, RN - 09/10/2022 4:05 AM EDT OUTCOME [...] Russ MD - 09/10/2022 12:40 AM EDT [facility] Operative Note Name: Ishan Irving : 1960 Date of surgery: 09/10/2022 Surgeon: Audi Russ MD paraprofessional education assistant: Ede De Dios MD Preoperative dx: Need for fdc enteral feeding access due to inability to take PO Postoperative dx: Esophageal stricture Procedure: Esophagoscopy Indication: This is an 62 y.o. year old female with a PMHx of L femoral neck fracture,??bipolar disorder with catatonic episodes, resolving medication- induced Parkinsonism, IDDM,??h/o alcoholism and chronic pancreatitis, iron deficiency anemia,??and GERD??c/b??esophagitis &??Farrell's esophagus. She was admitted to [facility] on 08/14/2022 with mixed shock and stress [...] to be determined Plan for discharge is: Snf Facility / Swing Outpatient Agency/Support Group Needs: None Agency Referrals: Diane - no response [facility] - declined, high cost medication and would [...] Patient will need to be applied for LTC Medicaid. Discussed with patient/spouse. Referral sent to LTC [facility]. Care Management will continue to follow and assist with discharge planning and coordination of care as indicated. Anticipated Date of Discharge: 09/10/2022 Marybeth Shelley RN, BSN Metal Grinder - Medicine Office of Care Management Office: Pager: [phone] * Plan of Care - Mac Mcmillan [...] 108/51. Denied any pains, CP, SOB, N/V, DAVIS. Meds given per JUL. BG monitored and [...] No other issues. Will CTM and notify MD of any changes. PLAN MOVING FORWARD: VS [...] when visiting. Patient does have transfer orders, propellant charge loader notified of patient's and her husbands request to transfer to a floor. Tube feeds continued through DHT, patient reports feeling of fullness, then later had multiple episiodes of nausea and vomiting. PRN zofran given, and orders received for PRN compazine as well; medical field representative aware and tube feeding orders adjusted. External [...] bradycardic, as low as 40s, not sustaining, MD aware. DHT in R nostril taped to [...] Hands on Surveillance [continuous indirect monitoring]: [facility], call light within reach, purposeful rounding, environmental modifications, bed alarm set Patient-specific fall prevention interventions for sensory deficits provided, if applicable: [X] N/A CPG GOAL OUTCOME EVALUATION: * Plan of Care - Merly Garcia RN - 09/05/2022 5:18 AM EDT Assumed care of pt @ 0100 from [facility]. A&Ox4, VSS on 2 L NC. TF restarted per orders in DHT, turned off per MD verbal order at 0600. Intermittent cough nonproductive, no S/S of aspiration. Externalcath in place, incontinence care provided PRN. Left hip incision DANIELA, CDI, steri strips intact. C/oleft hip pain, [...] RD??c/b??esophagitis &??Farrell's esophagus, who was admitted to [facility] on 08/14/2022 (now on Hospital Day #21), [...] BX performed by David Dejesus MD at [facility] ENDOSCOPY ??? PRO COLONOSCOPY, DIAGNOSTIC N/A 03/01/2020 COLONOSCOPY, DIAGNOSTIC performed by David Dejesus MD at [facility] ENDOSCOPY ??? PRO ENDOSCOPIC US EXAM, ESOPH N/A 03/31/2022 UPPER EUS- ENDOSCOPIC ULTRASOUND performed by David Dejesus MD at [facility] ENDOSCOPY ??? PRO UPPER GI ENDOSCOPY, BIOPSY N/A 04/03/2014 UPPER GASTROINTESTINAL ENDOSCOPY,WITH BIOPSY SINGLE OR MULTIPLE performed by David Dejesus MDat [facility] ??? PRO UPPER GI ENDOSCOPY, BIOPSY N/A 03/20/2016 EGD WITH BIOPSY performed by David Dejesus MD at [facility] END[facility] ??? PRO UPPER GI ENDOSCOPY, BIOPSY N/A 11/22/2018 EGD WITH BIOPSY (WRVU 2.49) performed by David Dejesus MD at [facility] END[facility]COPY ??? PRO UPPER GI ENDOSCOPY, BIOPSY N/A 03/01/2020 UPPER GASTROINTESTINAL ENDOSCOPY,WITH BIOPSY SINGLE OR MULTIPLE (WRVU 2.49) performed by David Dejesus MD at [facility] ENDOSCOPY ??? PRO UPPER GI ENDOSCOPY, BIOPSY N/A 09/23/2021 EGD WITH BIOPSY (WRVU 2.49) performed by David Dejesus MD at [facility] ENDOSCOPY ??? PRO UPPER GI ENDOSCOPY, BIOPSY N/A 03/31/2022 EGD WITH BIOPSY (WRVU 2.49) performed by David Dejesus MD at [facility] END[facility]COPY ??? PRO UPPER GI ENDOSCOPY, BIOPSY N/A 07/03/2022 EGD WITH BIOPSY (WRVU 2.49) performed by David Dejesus MD at [facility]COPY ??? PRO UPPER GI ENDOSCOPY, DIAGNOSTIC N/A 04/03/2014 EGD, UPPER GI ENDOSCOPY performed by David Dejesus MD at [facility] ??? PRO UPPER GI ENDOSCOPY, DIAGNOSTIC N/A 03/01/2020 EGD, UPPER GI ENDOSCOPY performed by David Dejesus MD at [facility] Medications: Current Facility-Administered Medications: ??? [...] vial 1-4 Units, 1-4 Units, Subcutaneous, Q4H [facility], Elsie Erickson APRN ??? [START ON 09/05/2022] insulin glargine-ygfn (Semglee) (100 unit/mL) subcutaneous injection vial 7 Units, 7 Units, Subcutaneous, Daily, Elsie Erickson APRN ??? LORazepam (Ativan) (2 mg/mL) injection 0.3 mg, 0.3 mg, Intravenous, Once, Liz Farias MD ??? lidocaine (Glydo) 2 % gel 11 mL, 11 mL, Topical (Top), Once, Liz Farias MD ??? lidocaine (Xylocaine) 1% (10 mg/mL) injection 150 mg, 15 mL, Subcutaneous, Once, Liz Farias MD ??? melatonin tablet 6 mg, 6 mg, Oral, Nightly, Irwin Jones MD, 6 mg at 09/03/222135 ??? insulin lispro protamine-insulin lispro (HumaLOG MIX [...] Nightly, Irwin Jones MD, 100 mg at 09/03/222135 ??? lidocaine (Lidoderm) 5% patch 3 patch, 3 patch, Transdermal, Q24H, Tonzi, Neva M, MD, 3 patch at 08/29/22 1102 ??? [...] mEq, Intravenous, Q1H PRN, Stopped at 08/21/22 0552 OR potassium chloride 20 mEq in sterile [...] for dosing. 15 mL 11 ??? Insulin Portage, Disposable, (BD INSULIN PEN NEEDLE UF MINI) [...] flow sheets for I&O. L Leg incision DIVING COACH, well approximated with no drainage. PT worked [...] saw and discussed the recent MBS and SHIP RUNNER concerns. Based on Ishan's history, we know [...] MD aware. Up to commode with OT, SHIP RUNNER consulted. NGT maintained per protocol. Q2 turns maintained. PRN Zofran given X1. See flow sheetsfor I&O. L. Hip incision CDI- DIVING COACH with steri-strips in place. Spouse at bedside, [...] Last Occupational Therapy Recommendation: acute rehabilitation facility, fci facility with to be determined Plan for discharge is: Snf Facility / Swing Outpatient Agency/Support Group Needs: None Agency Referrals: Based on discussions with the multi-disciplinary healthcare team, the patient would benefit from SNF level of care at discharge. I have met with the sales representative groceries to: ?? discuss discharge planning needs. ?? provide the [facility], Office of Care Management letter from the Gut Snatcher pertaining to rehabreferrals. ?? provide a letter describing our affiliations within the [facility] and educate about their right to choose where referrals are sent. ?? provide the [facility] Star Quality Rating handout. ?? review the different levels of rehab including SNF, swing, and acute. ?? provide a list of facilities within their preferred geographic area. ?? request that they provide at least three choices for referral. They have requested referrals to: [facility] [address] [place] [address] [facility] ([facility]) [address] [place] [address] [facility] [address] [place] [address] Does patient have COVID vaccine card: Yes; Copy obtained: No Note routed to a Materials Engineer who will communicate referrals to facilities and [...] of Discharge: 09/07/2022 Marybeth Shelley RN, BSN Metal Grinder - Medicine Office of Care Management Office: Pager: [phone] * Consult Note - Aicha Mckeon MD [...] this assessment. Recommendations were communicated to primary state farm agent team member. Aicha Mckeon MD 09/03/2022 Coding Determination 1. [...] Minimal/Low [] Low [] Minimal/Low [] Low 12621 [] Moderate [x] Moderate [] Moderate [] Moderate 15078 [x] High [] High [x] High [x] High 84435 Final Coding Determination: High Associated attestation - Keenan Rey MD - 09/18/2022 1:06 PM EDT Psychiatry Attending Note I discussed this patient's situation with the resident but did not see the patient. I contributed to the formulation and treatment planning as documented in the resident's note. Keenan Rey MD Psychiatry Consultation Pager: [phone] * Consult Note - Ghulam Torres MD - 09/03/2022 10:18 AM EDT Serious Illness Conversation Date of Conversation: 09/03/2022 Discussion with: Patient + Agent/Surrogate ?? Understanding of illness: Accurate understanding of prognosis or disease trajectory I met with Ishan and her Antonio at bedside. They've been 25 years. Met on [employer] 25 years ago. He went onto a chat group, made a lot of jokes and Ishan private messaged him. It's been love ever since. Ishan moved out here to [place] to be with Antonio from [place]. They have 2boys together (Estiven 23 in [place]; and Richard 19 studying at [employer] in politics economics). They are so proud of them. Their joys include their boys and their home and dog Xevivi ([place]). Their strengths are family and [...] Strengths: Family Sara or spirituality As above. [place] family. 2 sons Richard and Estiven. Self describe recovering Catholics with a smile. Will engage Rocket Engine Mechanic for prayers of healing and support alongside [...] Rehab rojelio # Healing arts engaged # Rocket Engine Mechanic referral made # Pet Therapy if they [...] with the patient, counseling with the patient's wound care physician(s), coordination with the consulting service, coordination with [...] bedside. They've been 25 years. Met on [employer] online 25 years ago. He went onto a chat group, made a lot of jokes and Ishan private messaged him. It's been love ever since. Ishan moved out here to [place] to be with Antonio from [place] They have 2boys together (Estiven 23 in [place] - Assistant Wrestling Coach; and Richard 19 studying at [employer] in politics economics). They are so proud [...] Strengths: Family Sara or spirituality As above. [place] family. 2 sons Richard and Estiven. Self describe recovering Catholics with a smile. Will engage Rocket Engine Mechanic for prayers of healing and support alongside [...] Rehab rojelio # Healing arts engaged # Rocket Engine Mechanic referral made # Pet Therapy if they [...] soft and slowed. ?? Language: fluent in mexican and without paraphasic errors ?? Mood: I [...] this assessment. Recommendations were communicated to primary state farm agent team member. Aicha Mckeon MD 09/02/2022 Coding Determination 1. [...] Minimal/Low [] Low [] Minimal/Low [] Low 99314 [] Moderate [x] Moderate [] Moderate [] Moderate 88888 [x] High [] High [x] High [x] High 83807 Final Coding Determination: High Associated attestation - Keenan Rey MD - 09/18/2022 1:05 PM EDT Psychiatry Attending Note I discussed this patient's situation with the resident but did not see the patient. I contributed to the formulation and treatment planning as documented in the resident's note. Keenan Rey MD Psychiatry Consultation Pager: [phone] * Consult Note - Dipak Chiang RN [...] Status Wt Readings from Last 1 Encounters: 04/25/23 68.1 kg (150 lb 3.2 oz) Body [...] feeding Intake (%): 0% Current bed: [facility] Assessment:Patient appears with fungal rash at [...] HOB higher than 30 degrees) Use a Around Knowledge chair cushion beneath patient at all times [...] Dipak Chiang RN on secure chat, pager [phone] or the wound care team at [phone] or pager [phone] with skin and wound care concerns or [...] (2-assist currently) andis not yet cleared by SHIP RUNNER for diet. Of note, neurology was involved [...] about her limited interaction. She feels tired/fatigued, thoughfranklyne denies daytime sedation. She feels hungry sometimes, [...] 20 years ago when she lived in [place]. Problem List: Patient Active Problem List Diagnosis [...] BX performed by David Dejesus MD at [facility] ??? PRO COLONOSCOPY, DIAGNOSTIC N/A 03/01/2020 COLONOSCOPY, DIAGNOSTIC performed by David Dejesus MD at [facility] ??? PRO ENDOSCOPIC US EXAM, ESOPH N/A 03/31/2022 UPPER EUS- ENDOSCOPIC ULTRASOUND performed by David Dejesus MD at [facility] ??? PRO UPPER GI ENDOSCOPY, BIOPSY N/A 04/03/2014 UPPER GASTROINTESTINAL ENDOSCOPY,WITH BIOPSY SINGLE OR MULTIPLE performed by David Dejesus MDat [facility] ??? PRO UPPER GI ENDOSCOPY, BIOPSY N/A 03/20/2016 EGD WITH BIOPSY performed by David Dejesus MD at [facility] ??? PRO UPPER GI ENDOSCOPY, BIOPSY N/A 11/22/2018 EGD WITH BIOPSY (WRVU 2.49) performed by David Dejesus MD at [facility] ??? PRO UPPER GI ENDOSCOPY, BIOPSY N/A 03/01/2020 UPPER GASTROINTESTINAL ENDOSCOPY,WITH BIOPSY SINGLE OR MULTIPLE (WRVU 2.49) performed by David Dejesus MD at [facility] ??? PRO UPPER GI ENDOSCOPY, BIOPSY N/A 09/23/2021 EGD WITH BIOPSY (WRVU 2.49) performed by David Dejesus MD at [facility] ??? PRO UPPER GI ENDOSCOPY, BIOPSY N/A 03/31/2022 EGD WITH BIOPSY (WRVU 2.49) performed by David Dejesus MD at [facility] ??? PRO UPPER GI ENDOSCOPY, BIOPSY N/A 07/03/2022 EGD WITH BIOPSY (WRVU 2.49) performed by David Dejesus MD at [facility] ??? PRO UPPER GI ENDOSCOPY, DIAGNOSTIC N/A 04/03/2014 EGD, UPPER GI ENDOSCOPY performed by [facility] [facility] ??? PRO UPPER GI ENDOSCOPY, DIAGNOSTIC N/A 03/01/2020 EGD, UPPER GI ENDOSCOPY performed by David Dejesus MD at [facility] Inpatient Medications: Current Facility-Administered Medications Medication Dose Route Frequency Provider Last Rate Last Admin ??? insulin glargine-ygfn (Semglee) (100 unit/mL) subcutaneous injection vial 16 Units 16 Units Subcutaneous Daily Elsie Erickson APRN 16 Units at 09/01/22 0841 ??? [START ON 09/02/2022] insulin lispro protamine-insulin lispro (HumaLOG MIX 75/25) (100 units/mL)subcutaneous injection vial 33 Units 33 Units Subcutaneous Daily Elsie Erickson RADIO INTERFERENCE TROUBLE SHOOTER ??? tube feeding diet 1,320 mL Per [...] vial 1-5 Units 1-5 Units Subcutaneous Q4H Elsie Dang, RADIO INTERFERENCE TROUBLE SHOOTER 1 Units at 09/01/22 1134 ??? polyethylene [...] Per NG tube Every Other Day Reynaldo Aivla MD 300 mg at 08/31/22 0836 ??? potassium chloride 20 mEq in sterile water 100 mL infusion 20 mEq Intravenous Q1H Tyler Barajas MD Stopped at 08/21/22 1808 Or ??? [...] 5-20 mL 5-20 mL Intravenous Q1 Min PRN Tyler Cobb MD ??? lidocaine (Xylocaine) 1% (10 mg/mL) injection 3 mg 0.3 mL Subcutaneous Once PRN Tyler Cobb MD ??? nitroGLYcerin (Nitrostat) disintegrating tablet 0.4 mg 0.4 mg Sublingual Q5 Min PRTyler Reyez MD ??? acetaminophen (Tylenol) tablet 1,000 mg 1,000 mg Oral Q8H [facility] Tyler Cobb MD 1,000 mg at 09/01/22 1344 ??? glucose (Glutose) 40% oral geL 15-30 g of glucose Buccal Q30 Min PRTyler Reyez MD Or ??? dextrose 10% infusion 250 [...] ; has two adult sons (one at [employer], one lives with friends somewhere relatively locally); [...] rhythm and soft ?? Language: fluent in mexican ?? Mood: depressed Affect: constricted and mood-congruent ?? Thought Process: linear and logical ?? Associations: intact ?? Thought Content: no homicidal ideation no suicidal ideation ; no PI/delusions Perception: denied auditory hallucinations denied visual hallucinations not observed responding to internal stimuli ?? Orientation: oriented to self; oriented to month/day/year; oriented to [facility] and being in ahospital but could not [...] 4.3 MAGNESIUM 0.94 VPA level on 08/29: at 04:48, 25 at 11:35 External Record [...] this assessment. Recommendations were communicated to primary state farm agent team member Irwin Jones. KEENAN REY MD 09/01/2022 Coding [...] [] Minimal - [] Minimal [] Straightforward 08572 [] Low [] Low [] Low [] Low 39172 [] Moderate [x] Moderate [] Moderate [] Moderate 75601 [x] High [] High [x] High [x] High 86490 Final Coding Determination: High: 34860 * Consult Note - Nery Ott MD [...] She was initially brought to [facility]. There labs showed WBC 15, Hgb 11, [...] on hep gtt, loaded with Aspirin,started on GUARD SERGEANT, diuresed, and sent to [facility] for Cardiology workup. This was ultimately felt to be [place] cardiomyopathy and she was medically managed. She was transferred to the medical service yesterday for further evaluation as she is having dysphagia and regurgitation. Per report, she has a dobhoff in place. She was seen by SHIP RUNNER today who note inconsistent symptoms/signs of aspiration [...] BX performed by David Dejesus MD at [facility] ??? PRO COLONOSCOPY, DIAGNOSTIC N/A 03/01/2020 COLONOSCOPY, DIAGNOSTIC performed by David Dejesus MD at [facility] ??? PRO ENDOSCOPIC US EXAM, ESOPH N/A 03/31/2022 UPPER EUS- ENDOSCOPIC ULTRASOUND performed by David Dejesus MD at [facility] ??? PRO UPPER GI ENDOSCOPY, BIOPSY N/A 04/03/2014 UPPER GASTROINTESTINAL ENDOSCOPY,WITH BIOPSY SINGLE OR MULTIPLE performed by David Dejesus MDat [facility] ??? PRO UPPER GI ENDOSCOPY, BIOPSY N/A 03/20/2016 EGD WITH BIOPSY performed by David Dejesus MD at [facility] ??? PRO UPPER GI ENDOSCOPY, BIOPSY N/A 11/22/2018 EGD WITH BIOPSY (WRVU 2.49) performed by David Dejesus MD at [facility] ??? PRO UPPER GI ENDOSCOPY, BIOPSY N/A 03/01/2020 UPPER GASTROINTESTINAL ENDOSCOPY,WITH BIOPSY SINGLE OR MULTIPLE (WRVU 2.49) performed by David Dejesus MD at [facility] ??? PRO UPPER GI ENDOSCOPY, BIOPSY N/A 09/23/2021 EGD WITH BIOPSY (WRVU 2.49) performed by David Dejesus MD at [facility] ??? PRO UPPER GI ENDOSCOPY, BIOPSY N/A 03/31/2022 EGD WITH BIOPSY (WRVU 2.49) performed by David Dejesus MD at [facility] ??? PRO UPPER GI ENDOSCOPY, BIOPSY N/A 07/03/2022 EGD WITH BIOPSY (WRVU 2.49) performed by David Dejesus MD at [facility] ??? PRO UPPER GI ENDOSCOPY, DIAGNOSTIC N/A 04/03/2014 EGD, UPPER GI ENDOSCOPY performed by David Dejesus MD at [facility] ??? PRO UPPER GI ENDOSCOPY, DIAGNOSTIC N/A 03/01/2020 EGD, UPPER GI ENDOSCOPY performed by David Dejesus MD at [facility] SOCIAL HX: Social History Socioeconomic [...] for dosing. 15 mL 11 ??? Insulin [place], Disposable, (BD INSULIN PEN NEEDLE UF MINI) 31 x 3/16 Needle 1 Device by [facility].(Non-Drug; Combo Route) route 3 times daily as [...] ??? insulin lispro 1-5 Units Subcutaneous Q4H JARED ??? ergocalciferoL (vitamin D2) 50,000 Units Per [...] BID ??? acetaminophen 1,000 mg Oral Q8H JARED ??? thiamine 100 mg Intravenous Daily Drips: [...] Resp: [14-25] SpO2 SpO2: [94 %-97 %] IO 08/31 0701 - 09/01 0700 In: 190 [...] IMAGING: Reports and images personally reviewed in [facility]. Images independently interpreted. XR Fluoro Barium Swallow [...] who have questions please contact the health pediatric acute care unit nurse that requested your imaging first. Electronically signed by: Aron Billings MD, [facility] ([phone]), at 08/31/2022 12:[address] Angiogram Coronary [...] who have questions please contact the health pediatric acute care unit nurse that requested your imaging first. Electronically signed by: Arlette Mays MD, [facility] ([phone]), at 08/27/2022 11:[address] Chest wo Contrast (Generic) Final Result Stable findings of multifocal pneumonia. No interval abnormality. Thank you for letting us participate in the care of this patient. If you are a health care provider and have any questions regarding this report, please contact the number below. For patients who have questions please contact the health pediatric acute care unit nurse that requested your imaging first. Electronically signed by: MINH QUIROGA MD, [facility] ([phone]), at 08/27/2022 10:48 AM XR Hip 2-3 Views Left Final Result No radiographic evidence of infection. Thank you for letting us participate in the care of this patient. If you are a health care provider and have any questions regarding this report, please contact the number below. For patients who have questions please contact the health pediatric acute care unit nurse that requested your imaging first. Electronically signed by: Viktor Cervantes MD, [facility] ([phone]), at 08/22/2022 12:43 PM XR Pelvis (Generic) Final Result No radiographic evidence of infection status post left hip ORIF. Thank you for letting us participate in the care of this patient. If you are a health care provider and have any questions regarding this report, please contact the number below. For patients who have questions please contact the health pediatric acute care unit nurse that requested your imaging first. Electronically signed by: Richard Billings MD, [facility] ([phone]), at 08/22/2022 10:[address] Hip w [...] who have questions please contact the health pediatric acute care unit nurse that requested your imaging first. Electronically signed by: Aicha Chowdhury MD, [facility] ([phone]), at 08/21/2022 9:[address] Chest w [...] who have questions please contact the health pediatric acute care unit nurse that requested your imaging first. Electronically signed by: Jagdeep Lee MD, [facility] ([phone]), at 08/21/2022 6:56 AM MRI Brain wo Contrast Final Result No acute infarction, mass or mass effect. Thank you for letting us participate in the care of this patient. If you are a health care provider and have any questions regarding this report, please contact the number below. For patients who have questions please contact the health pediatric acute care unit nurse that requested your imaging first. Electronically signed by: Jagdeep Lee MD, [facility] ([phone]), at 08/20/2022 3:34 AM XR Chest for Verifying Vascular Access PICC [...] who have questions please contact the health pediatric acute care unit nurse that requested your imaging first. Electronically signed by: Alan De Guzman MD, [facility] ([phone]), at 08/19/2022 4:39 PM XR Chest One [...] who have questions please contact the health pediatric acute care unit nurse that requested your imaging first. Electronically signed by: Alan De Guzman MD, [facility] ([phone]), at 08/19/2022 3:[address] Head wo Contrast (Generic) Final Result No acute intracranial process. Thank you for letting us participate in the care of this patient. If you are a health care provider and have any questions regarding this report, please contact the number below. For patients who have questions please contact the health pediatric acute care unit nurse that requested your imaging first. Electronically signed by: Antonio Jordan MD, [facility] ([phone]), at 08/18/2022 3:18 PM XR Abdomen 1 [...] who have questions please contact the health pediatric acute care unit nurse that requested your imaging first. Head wo Contrast (Generic) Final Result No acute intracranial abnormality and no change from prior Thank you for letting us participate in the care of this patient. If you are a health care provider and have any questions regarding this report, please contact the number below. For patients who have questions please contact the health pediatric acute care unit nurse that requested your imaging first. Electronically signed by: Moustapha Correa MD, [facility] ([phone]), at 08/16/2022 11:19 PM XR Chest One [...] who have questions please contact the health pediatric acute care unit nurse that requested your imaging first. Electronically signed by: Alfonso Adams MD, [facility] ([phone]), at 08/16/2022 10:56 AM XR Abdomen 1 [...] who have questions please contact the health pediatric acute care unit nurse that requested your imaging first. Electronically signed by: Liliane Adams MD, [facility] ([phone]), at 08/15/2022 9:05 AM XR Abdomen 1 [...] who have questions please contact the health pediatric acute care unit nurse that requested your imaging first. Chest One [...] who have questions please contact the health pediatric acute care unit nurse that requested your imaging first. Electronically signed by: [facility] ([phone]), at 08/15/2022 3:55 AM XR Chest One View Final Result FINDINGS/IMPRESSION: * [...] who have questions please contact the health pediatric acute care unit nurse that requested your imaging first. Film Library- [...] and personally reviewed ASSESSMENT & PLAN: Ishan Ivring 62 y.o./ w/ PMH of BE with [...] She had a modified barium swallow with [facility] yesterday that showed tamara oropharyngeal aspiration. I [...] of the hospital. Recommendations: -Continue working with SHIP [facility]NER -If no meaningful improvement in oropharyngeal dysphagia [...] them as documented. Cesar Cervantes MD, MS motor inspection mechanic Decorator Inspector, Gastroenterology and Hepatology * Plan of Care [...] to be determined Last Occupational Therapy Recommendation: [facility]ci facility, acute rehabilitation facility with to be [...] Anticipated Date of Discharge: 09/04/2022 Flavio ROLAND RN Case Manager- Medicine Office of Care Management Office# [phone] Pager: [phone] * Plan of Care - Vicente Zarco [...] [] 701-900 mg [] 901-1100 mg [] 2452-4904 mg [] 4187-3521 mg [] Above 1500 mg Medications: No [...] for dosing. 15 mL 11 ??? Insulin [place], Disposable, (BD INSULIN PEN NEEDLE UF MINI) 31 x 3/16 Needle 1 Device by [facility].(Non-Drug; Combo Route) route 3 times daily as [...] weeks. Will recheck 25, Vit D at [facility] outpatient follow up appointment. C. Will [...] to be determined Last Occupational Therapy Recommendation: fci facility with to be determined Plan for discharge is: Pending Hospital Course and PT/OT Recommendations Outpatient Agency/Support Group Needs: Other *TBD Agency Referrals: Family has requested [facility] for rehab. Pt still with Dobbhoff tube [...] 08/31/2022 Office of Care Management Surgery Team Metal Grinder Avani DENT, RN [email or web address] Pager #[phone] * Consult Note - Elsie Erickson APRN [...] &??Farrell's esophagus??presenting in transfer from [facility], suspected to be in cardiogenic shock and found to be in mixed shock with concern for stress cardiomyopathy. We are being consulted to assist with transitioning this patient off of her drip. Patient remains on a tube feeding diet Peptamen AF by NG tube continuous at 45mls/hr. Diabetes History: Ishan Irving has had diabetes since diagnosed with gestational diabetes in 2002 and then [id number]. Current outpatient diabetes regimen: Diabetes Provider: PCP [...] and negative except as noted per HPI. [facility] Past Medical History: Diagnosis Date ??? Bipolar [...] BID ??? acetaminophen 1,000 mg Oral Q8H JARED Or ??? acetaminophen 1,000 mg Oral Q8H JARED Or ??? acetaminophen 650 mg Rectal Q8H JARED ??? thiamine 100 mg Intravenous Daily Infusions: [...] &??Farrell's esophagus??presenting in transfer from [facility], suspected to be in cardiogenic shock and [...] Erickson APRN Endocrinology Diabetes Management Service Pager: [phone] minutes of this 80 minute visit [...] &??Farrell's esophagus??presented as transfer from [facility] 08/15/22 suspected to be in cardiogenic shock [...] BX performed by David Dejesus MD at [facility] ??? PRO COLONOSCOPY, DIAGNOSTIC N/A 03/01/2020 COLONOSCOPY, DIAGNOSTIC performed by David Dejesus MD at [facility] ??? PRO ENDOSCOPIC US EXAM, ESOPH N/A 03/31/2022 UPPER EUS- ENDOSCOPIC ULTRASOUND performed by David Dejesus MD at [facility] ??? PRO UPPER GI ENDOSCOPY, BIOPSY N/A 04/03/2014 UPPER GASTROINTESTINAL ENDOSCOPY,WITH BIOPSY SINGLE OR MULTIPLE performed by David Dejesus MDat [facility] ??? PRO UPPER GI ENDOSCOPY, BIOPSY N/A 03/20/2016 EGD WITH BIOPSY performed by David Dejesus MD at [facility] ??? PRO UPPER GI ENDOSCOPY, BIOPSY N/A 11/22/2018 EGD WITH BIOPSY (WRVU 2.49) performed by David Dejesus MD at [facility] ??? PRO UPPER GI ENDOSCOPY, BIOPSY N/A 03/01/2020 UPPER GASTROINTESTINAL ENDOSCOPY,WITH BIOPSY SINGLE OR MULTIPLE (WRVU 2.49) performed by David Dejesus MD at [facility] ??? PRO UPPER GI ENDOSCOPY, BIOPSY N/A 09/23/2021 EGD WITH BIOPSY (WRVU 2.49) performed by David Dejesus MD at [facility] ??? PRO UPPER GI ENDOSCOPY, BIOPSY N/A 03/31/2022 EGD WITH BIOPSY (WRVU 2.49) performed by David Dejesus MD at [facility] ??? PRO UPPER GI ENDOSCOPY, BIOPSY N/A 07/03/2022 EGD WITH BIOPSY (WRVU 2.49) performed by David Dejesus MD at [facility] ??? PRO UPPER GI ENDOSCOPY, DIAGNOSTIC N/A 04/03/2014 EGD, UPPER GI ENDOSCOPY performed by David Dejesus MD at [facility] ??? PRO UPPER GI ENDOSCOPY, DIAGNOSTIC N/A 03/01/2020 EGD, UPPER GI ENDOSCOPY performed by David Dejesus MD at [facility] Allergies Allergen Reactions ??? Meperidine [...] for dosing. 15 mL 11 ??? Insulin [place], Disposable, (BD INSULIN PEN NEEDLE UF MINI) 31 x 3/16 Needle 1 Device by [facility].(Non-Drug; Combo Route) route 3 times daily as [...] in M/R/U distributions Motor intact wrist flexion/extension, medical librarian Brisk capillary refill distally Left Upper Extremity Exam: No ecchymosis, erythema, or overlying skin changes No effusion in shoulder / elbow / wrist No obvious TTP clavicle, shoulder, humerus, elbow, forearm, wrist, hand Apparent painless range of motion of shoulder / elbow / wrist / fingers Sensation appears intact to light touch in M/R/U distributions Motor intact wrist flexion/extension, medical librarian Brisk capillary refill distally Right Lower Extremity [...] infection. Orthopaedics will sign off. Please page [phone] when the patient is extubated and examinable for more reliable exam of the L hip. We will f/u the pending XR and ESR/CRP and reach out as needed. - Activity: WBAT LLE - DVT prophylaxis: Per primary, on SQH - Antibiotics: Per primary, on Zosyn - Diet: Per primary - Imaging needed: XR L hip and pelvis Rober Mensah MD Orthopaedic Surgery, 7400 * Consult Note - Parris Leyva MD [...] esophagitis who was transferred from [facility] with cardiogenic shock. Patient fell on August [...] started on heparin infusion and transferred to [facility] on 08/15. Vasopressor requirement on admission. Pip/tazo [...] follow. Please page ID Red team (pager [phone]) with questions or concerns. Stefan Garsia MD 08/20/2022 3:35 PM Pager: [phone] Infectious Diseases Attending I saw the patient with the infectious diseases fellow. I have made some modifications and agree with the presentation of data and the assessment and plan as outlined above. Parris Leyva MD Professor, Department of Medicine Page [phone] 55 minutes of this 80 minute visit [...] potential sources identified. Low overall suspicion for INVESTIGATIONS CHIEF infection given recent MRI and improvement in [...] pressor support, and she was transferred to [facility] on 08/14/22. Over the course of several [...] = 300 test strips. ??? Blood-Glucose Meter (orderTalkTOUCH ULTRA2) Kit by Other route. 1 = one blood glucose meter kit. ??? divalproex EC (DEPAKOTE) 500 mg, Oral, 2 TIMES DAILY ??? HumuLIN N NPH Insulin KwikPen 20 Units, Subcutaneous, DAILY ??? insulin aspart U-100 (NOVOLOG FLEXPEN U-100 INSULIN) 10-20 Units, Subcutaneous, 3 TIMES DAILY BEFORE MEALS, Refer to correction factor scale for dosing. ??? Insulin [place], Disposable, (BD INSULIN PEN NEEDLE UF MINI) [...] Negative mcL Appearance UA Clear Clear Spec [place] UA 1.018 1.005 - 1.030 Color UA Yellow Yellow Culture Reflexed No Urinalysis Microscopic Exam Result Value Ref Range RBC UA 1 0 - 4 /HPF WBC UA 3 0 - 5 /HPF Bacteria UA Rare (A) None /HPF Yeast [place] UA Occasional (A) None /HPF Yeast Hyph UA Occasional (A) None /HPF Squam Epith UA 1 <=4 /HPF Hyaline Cast UA 2 0 - 2 /LPF Lactate, whole blood, send to lab ([facility] Result Value Ref Range Lactate WB 1.6 [...] ? Tim Emmanuel MD [place] [address] Pager #[phone] Email: [email or web address] [facility] ?? * Plan of Care - Carlos Arnold RN - 08/19/2022 4:50 PM EDT Peripherally Inserted Central Catheter (PICC) Teaching Sheet Peripherally inserted central catheters (dqwu-va-krou) (PICC) are used when you need IV [...] midline catheter? PICC lines are used for watermelon inspector treatments. PICC lines may be used for [...] can be set up via the nurse Metal Grinder to help you. What are possible complications [...] Efficacy, Safety, Use, and Administration of Cathflo, [employer] 2005 * Consult Note - Tim [...] pressor support, and she was transferred to [facility] on 08/14/22. Over the course of several [...] correction factor scale for dosing. ??? Insulin [place], Disposable, (BD INSULIN PEN NEEDLE UF MINI) [...] mg/dL Lactate, whole blood, send to lab ([facility] Result Value Ref Range Lactate WB 1.6 [...] hours. Tim Emmanuel MD Department [place] [address] Pager #[phone] Email: [email or web address] * Consult Note - Nichelle Barrett MD [...] correction factor scale for dosing. ??? Insulin [place], Disposable, (BD INSULIN PEN NEEDLE UF MINI) [...] 6-10 /HPF Hypochromia Moderate Ovalocytes 1-5 /HPF Connor Cells 6-10 /HPF Giant Platelets Less than [...] Neurophysiology * Consult Note - Veena King, [facility] - 08/18/2022 9:59 AM EDT ?? The [...] may have. Alternately, during off-hours you niurka lexx call [phone] to contact a pharmacist. * Consult Note - Lorene Michelle [facility] - 08/17/2022 4:53 PM EDT [facility] Pharmacokinetics Note Drug: Vancomycin Pharmacokinetic target: AUC24 (range) 400-600 mg/L.hr Current regimen: 750 mg IV every 24 hours Ishan Irving is a(n) 62 years old female receiving Vancomycin 750 mg IV every 24 hours for pneumonia Recent measured serum creatinine values: 08/17/2022 00:45 1.1 mg/dL 08/16/2022 18:00 1.15 mg/dL 08/16/2022 03:36 1.42 mg/dL Assessment: Analysis of the most recent level(s) using [employer] gives the following patient-specific pharmacokinetic parameters: CL: [...] COVID test: Lab Results Component Value Date [id number] Not Detected 08/15/2022 Past medical History: Past Medical History: Diagnosis Date ??? Bipolar disorder 02/12/2022 Hospitalizations Within the Past 30 Days: no previous admission in last 30 days Current Decision-Making Capacity: Other (spouse is decision maker based on surrogacy; no AD in place) If AD's have not been completed the following surrogate would be surrogate decision maker per [place] surrogate decision making law. (Only good for 180 days) Any patient receiving care in [place] must abide by [place] law. The hierarchy for surrogate decision making [...] (i) The agent with financial power of collections attorney or a conservator appointed in accordance [...] (for hip recovery) Home Address confirmed as: [address] [facility] [address] Social & Family Supports: All names listed [...] N/A ; Prescription Coverage: Yes Preferred Pharmacy: [facility] [address] [address] Status: Patient is a : No Primary Care Provider confirmed: Chris Stanley APRN [phone] Patient/Caregiver Goals of Treatment: to be determined [...] assist with transition of care planning. Moustapha Jacobsen RN * Consult Note - Tapan Hastings [facility] - 08/15/2022 1:05 AM EDT Clinical Pharmacist Note - VancFD Ishan Irving [phone] Ishan Irving is a 62 y.o. [...] have. Alternately,during off-hours (9p-) you may call [phone] to contact a pharmacist. Tapan Hastings RPH documented in this encounter Plan of Treatment Upcoming Encounters Date Type Department Care Team (Late st Contact Info) Description 03/10/2024 4:00 PM EDT Office Visit Cardiology at [address] [address] Milagros Hernandez MD [facility] [place] [address] Pending Results Name Type Priority Associated Diagnoses [...] 09/23/2022 5:02 AM EDT DIFFERENTIAL, AUTOMATED Routine 09/24/19 5:02 AM EDT CBC (WITH DIFF) Routine [...] 09/20/2022 5:06 AM EDT DIFFERENTIAL, AUTOMATED Routine 09/21/19 23 5:06 AM EDT HC CBC,PLT & AUTO DIFF Routine 3 5:06 AM EDT PHOSPHORUS Routine 09/20/2022 5:06 [...] 09/16/2022 3:08 AM EDT DIFFERENTIAL, AUTOMATED Routine 09/17/19 3:08 AM EDT HC CBC,PLT & AUTO [...] 09/15/2022 3:00 AM EDT DIFFERENTIAL, AUTOMATED Routine 09/16/19 3:00 AM EDT HC CBC,PLT & AUTO [...] 09/14/2022 3:33 AM EDT DIFFERENTIAL, AUTOMATED Routine 09/15/19 3:33 AM EDT HC CBC,PLT & AUTO [...] 09/13/2022 3:15 AM EDT DIFFERENTIAL, AUTOMATED Routine 09/14/19 3:15 AM EDT HC CBC,PLT & AUTO [...] 09/12/2022 3:25 AM EDT DIFFERENTIAL, AUTOMATED Routine 09/13/19 3:25 AM EDT HC CBC,PLT & AUTO [...] 09/11/2022 4:05 AM EDT DIFFERENTIAL, AUTOMATED Routine 09/12/19 4:05 AM EDT HC CBC,PLT & AUTO [...] 09/10/2022 9:20 AM EDT DIFFERENTIAL, AUTOMATED Routine 09/11/19 9:20 AM EDT HC CBC,PLT & AUTO [...] ENDOSCOPY Routine 09/10/2022 12 :13 AM EDT POCT GLUCOSE Routine 09/09/2022 8:09 PM EDT POCT GLUCOSE Routine 09/09/2022 5:20 PM EDT POCT GLUCOSE Routine 09/09/2022 1:18 PM EDT POCT GLUCOSE Routine 09/09/2022 10:10 AM EDT POCT GLUCOSE Routine 09/09/2022 6:41 AM EDT HEMOGRAM Routine 09/09/2022 4:00 AM EDT DIFFERENTIAL, AUTOMATED Routine 09/10/19 4:00 AM EDT HC CBC,PLT & AUTO [...] 09/08/2022 2:00 AM EDT DIFFERENTIAL, AUTOMATED Routine 09/09/19 2:00 AM EDT HC CBC,PLT & AUTO [...] 09/07/2022 12:30 AM EDT DIFFERENTIAL, AUTOMATED Routine 09/08/19 12:30 AM EDT HC CBC,PLT & AUTO [...] 09/06/2022 1:00 AM EDT DIFFERENTIAL, AUTOMATED Routine 09/07/19 1:00 AM EDT HC CBC,PLT & AUTO [...] 09/05/2022 1:06 AM EDT DIFFERENTIAL, AUTOMATED Routine 09/06/19 1:06 AM EDT HC CBC,PLT & AUTO [...] 09/04/2022 12:26 AM EDT DIFFERENTIAL, AUTOMATED Routine 09/05/19 12:26 AM EDT HC CBC,PLT & AUTO [...] 09/03/2022 12:40 AM EDT DIFFERENTIAL, AUTOMATED Routine 09/04/19 12:40 AM EDT HC CBC,PLT & AUTO [...] 09/02/2022 1:05 AM EDT DIFFERENTIAL, AUTOMATED Routine 09/03/19 1:05 AM EDT RETICULOCYTE COUNT Routine 09/02/2022 [...] 09/01/2022 2:10 AM EDT DIFFERENTIAL, AUTOMATED Routine 09/02/19 2:10 AM EDT HC CBC,PLT & AUTO DIFF Routine 2:10 AM EDT HC PHOSPHORUS, SERUM Routine [...] 08/31/2022 4:30 AM EDT DIFFERENTIAL, AUTOMATED Routine 09/01/19 4:30 AM EDT HC CBC,PLT & AUTO [...] 08/30/2022 4:05 AM EDT DIFFERENTIAL, AUTOMATED Routine 08/31/19 4:05 AM EDT HC CBC,PLT & AUTO [...] 08/29/2022 9:30 AM EDT DIFFERENTIAL, AUTOMATED Routine 08/30/19 9:30 AM EDT HC CBC,PLT & AUTO [...] 08/28/2022 7:00 AM EDT DIFFERENTIAL, AUTOMATED Routine 08/29/19 7:00 AM EDT HC CBC,PLT & AUTO [...] 08/27/2022 5:40 AM EDT DIFFERENTIAL, AUTOMATED Routine 08/28/19 5:40 AM EDT HC CBC,PLT & AUTO [...] 08/26/2022 12:22 AM EDT DIFFERENTIAL, AUTOMATED Routine 08/27/19 12:22 AM EDT HC CBC,PLT & AUTO [...] 08/25/2022 1:14 AM EDT DIFFERENTIAL, AUTOMATED Routine 08/26/19 1:14 AM EDT HC CBC,PLT & AUTO [...] 08/24/2022 1:53 AM EDT DIFFERENTIAL, AUTOMATED Routine 08/25/19 1:53 AM EDT HC CBC,PLT & AUTO [...] 08/23/2022 10:55 AM EDT DIFFERENTIAL, AUTOMATED Routine 08/24/19 10:55 AM EDT HC CBC,PLT & AUTO DIFF Routine 10:55 AM EDT POCT GLUCOSE Routine 08/23/2022 8:01 AM EDT POCT GLUCOSE Routine 08/23/2022 4:22 AM EDT POCT GLUCOSE Routine 08/23/2022 2:32 AM EDT SCAN, PERIPHERAL BLOOD Routine 2:30 AM EDT HEMOGRAM Routine 08/23/2022 2:30 AM EDT DIFFERENTIAL, AUTOMATED Routine 08/24/19 2:30 AM EDT HC CBC,PLT & AUTO [...] 08/22/2022 3:39 AM EDT DIFFERENTIAL, AUTOMATED Routine 08/23/19 3:39 AM EDT HC CBC,PLT & AUTO [...] 4:50 PM EDT HC MYCOBACTERIA CULTURE Routine 08/22/19 4:50 PM EDT FUNGAL STAIN Routine 08/21/2022 4:50 PM EDT LOWER RESPIRATORY CULTURE Routine 08/21/2022 4:50 PM EDT FUNGUS CULTURE Routine 08/21/2022 4:50 PM EDT HC BODY FLUID CELL CT W/DIFF Routine 08/21/2022 4:45 PM EDT HC CALCOFLUOR FUNGAL STAIN Routine 08/21/2022 4:45 PM EDT HC MYCOBACTERIA CULTURE Routine 08/22/19 4:45 PM EDT FUNGAL STAIN Routine 08/21/2022 [...] 12:58 PM EDT CRP, ACUTE INFLAMMATION Routine 08/22/19 12:00 PM EDT SEDIMENTATION RATE Routine 08/21/2022 12 :00 PM EDT POCT GLUCOSE Routine 08/21/2022 11:56 AM EDT HC IRON BINDING CAPACITY Routine 08/21/2022 10:00 AM EDT HC PCH HISTOPLASMA ANTIGEN Routine 08/21/2022 10:00 AM EDT POTASSIUM Routine 08/21/2022 10:00 AM EDT FERRITIN Routine 08/21/2022 10:00 AM EDT POCT GLUCOSE Routine 08/21/2022 9:57 AM EDT HC [facility] ASPERGILLUS (GALACTOMANNAN) ANTIGEN Routine 08/21/2022 8:30 AM EDT POCT GLUCOSE Routine 08/21/2022 8:28 AM EDT HC [facility] FUNGITELL; (1, 3) [id number] Routine 08/21/2022 8:00 AM EDT POCT GLUCOSE Routine 08/21/2022 7:50 AM EDT POCT GLUCOSE Routine 08/21/2022 6:06 AM EDT POCT GLUCOSE Routine 08/21/2022 3:48 AM EDT HEMOGRAM Routine 08/21/2022 3:46 AM EDT DIFFERENTIAL, AUTOMATED Routine 08/22/19 3:46 AM EDT HC CBC,PLT & AUTO [...] 08/20/2022 12:30 AM EDT DIFFERENTIAL, AUTOMATED Routine 08/21/19 12:30 AM EDT HC CBC,PLT & AUTO [...] PM EDT PLACE BEDSIDE PICC LINE Routine 08/20/19 4:51 PM EDT XR CHEST FOR VERIFYING [...] 08/19/2022 1:20 AM EDT DIFFERENTIAL, AUTOMATED Routine 08/20/19 1:20 AM EDT HC CBC,PLT & AUTO [...] 08/18/2022 2:30 AM EDT DIFFERENTIAL, AUTOMATED Routine 08/19/19 2:30 AM EDT HC CBC,PLT & AUTO [...] 08/17/2022 12:45 AM EDT DIFFERENTIAL, AUTOMATED Routine 08/18/19 12:45 AM EDT HC CBC,PLT & AUTO [...] PM EDT BLOOD GAS ARTERIAL POC Routine 3 8:09 PM EDT BASIC METABOLIC PANEL Routine 08/16/2022 6:00 PM EDT BLOOD GAS ARTERIAL POC Routine 3 5:59 PM EDT BLOOD GAS ARTERIAL POC Routine 3 4:02 PM EDT COOX, POC Routine 08/16/2022 [...] 08/16/2022 3:36 AM EDT DIFFERENTIAL, AUTOMATED Routine 08/17/19 3:36 AM EDT HC CBC,PLT & AUTO [...] 08/15/2022 3:05 AM EDT DIFFERENTIAL, AUTOMATED Routine 08/16/19 3:05 AM EDT HC CBC,PLT & AUTO [...] 08/14/2022 11:55 PM EDT DIFFERENTIAL, AUTOMATED Routine 08/15/19 11:55 PM EDT HC BLOOD CULTURE- STAT [...] Suture Release (09/25/2022 9:56 AM EDT) Narrative [facility] - 09/25/2022 10:16 AM EDT This exam is auto-finalizing. No interpretation was done. Moustapha Hart MD IMG IR ORDERABLES [place], [place] * POCT Glucose (09/25/2022 6:26 AM EDT) Glucose, POC 155 65 - 199 mg/dL [facility] Comment: Supplemental ranges: <140 mg/dL before meals <180 mg/dL all other times of the day Blood 09/25/2022 6:26 AM EDT 09/25/2022 6:26 AM EDT Jose Mcleod MD POINT OF CARE TEST O RDERAREYMUNDO Performing Organization Address City/State/[facility] Co de Phone Number [facility] [place] [address] * (ABNORMAL) Basic Metabolic Panel (non-fasting) (09/25/2022 3:11 AM EDT) Glucose 187 65 - 199 mg/dL [facility] Comment:Diabetes: >=200 mg/d L plus symptoms Blood Urea Nitrogen 32(H) 8 - 18 mg/dL [facility] Creatinine 0.62(L) 0.70 - 1.20 mg/dL [facility] Sodium 142 135 - 145 mmol/L [facility] Potassium 4.6 3.5 - 5.0 mmol/L [facility] Comment: Please note: ??Patients with WBC >100,000 may have falsely elevated Potassium levels. ??For accurate Potassium quantification in these patients send serum separator tube (gold top) for subsequent determinations. ??Contact the Clinical Chemistry Laboratory if there are any questions. Chloride 103 98 - 107 mmol/L [facility] Carbon Dioxide 31 22 - 31 mmol/L [facility] Anion Gap 8 5 - 15 mmol/L [facility] Calcium 9.8 8.5 - 10.5 mg/dL [facility] Est Glomerular Filtration Rate 101 >=60 mL/min/1. 73 m?? [facility] Comment: This patient's estimated GFR was [...] Pascal MD CHEMISTRY ORDERABLES Performing Organization Address [facility] Co de Phone Number [facility] [place] [address] * Phosphorus (09/25/2022 3:11 AM EDT) Phosphorus 4.0 2.5 - 4.5 mg/dL [facility] Blood 09/25/2022 3:11 AM EDT 09/25/2022 3:54 AM EDT Narrative Resulting Agency Comment Spec In Lab Richard Pascal MD CHEMISTRY ORDERABLES Performing Organization Address [facility] Co de Phone Number [facility] [place] [address] * Magnesium (09/25/2022 3:11 AM EDT) Magnesium 0.95 0.69 - 1.07 mmol/L [facility] Blood 09/25/2022 3:11 AM EDT 09/25/2022 3:54 AM EDT Narrative Resulting Agency Comment Spec In Lab Richard Pascal MD CHEMISTRY ORDERABLES Performing Organization Address [facility] de Phone Number [facility] [place] [address] * (ABNORMAL) POCT Glucose (09/24/2022 8:44 PM EDT) Glucose, POC 218(H) 65 - 199 mg/dL [facility] Comment: Supplemental ranges: <140 mg/dL before meals <180 mg/dL all other times of the day Blood 09/24/2022 8:44 PM EDT 09/24/2022 8:44 PM EDT Jose Mcleod MD POINT OF CARE TEST O RDERABLES Performing Organization Address [facility] Co de Phone Number [facility] [place] [address] * (ABNORMAL) POCT Glucose (09/24/2022 4:03 PM EDT) Glucose, POC 243(H) 65 - 199 mg/dL [facility] Comment: Supplemental ranges: <140 mg/dL before meals <180 mg/dL all other times of the day Blood 09/24/2022 4:03 PM EDT 09/24/2022 4:03 PM EDT Jose Mcleod MD POINT OF CARE TEST O RDERABLES Performing Organization Address [facility] de Phone Number [facility] [place] [address] * (ABNORMAL) POCT Glucose (09/24/2022 11:44 AM EDT) Glucose, POC 272(H) 65 - 199 mg/dL [facility] Comment: Supplemental ranges: <140 mg/dL before meals <180 mg/dL all other times of the day Blood 09/24/2022 11:4 4 AM EDT 09/24/2022 11:44 AM EDT Jose Mcleod MD POINT OF CARE TEST O RDERABLES Performing Organization Address [facility] de Phone Number [facility] [place] [address] * POCT Glucose (09/24/2022 6:21 AM EDT) Glucose, POC 186 65 - 199 mg/dL [facility] Comment: Supplemental ranges: <140 mg/dL before meals <180 mg/dL all other times of the day Blood 09/24/2022 6:21 AM EDT 09/24/2022 6:21 AM EDT Jose Mcleod MD POINT OF CARE TEST O RDERABLES Performing Organization Address City/[facility] Co de Phone Number [facility] [place] [address] * Lavender Tube HOLD (09/24/2022 5:31 AM EDT) Lavender Hold Sample in lab. [facility] Blood Venous Draw / Unknown 09/24/2022 5:31 AM EDT 09/24/2022 5:48 AM EDT Jigar Streeter MD HEMATOLOGY ORDERABLE S [facility] [place] [address] * (ABNORMAL) Basic Metabolic Panel (non-fasting) (09/24/2022 5:31 AM EDT) Glucose 188 65 - 199 mg/dL [facility] Comment:Diabetes: >=200 mg/d L plus symptoms Blood Urea Nitrogen 31(H) 8 - 18 mg/dL [facility] Creatinine 0.69(L) 0.70 - 1.20 mg/dL [facility] Sodium 139 135 - 145 mmol/L [facility] Potassium 4.5 3.5 - 5.0 mmol/L [facility] Comment: Please note: ??Patients with WBC >100,000 may have falsely elevated Potassium levels. ??For accurate Potassium quantification in these patients send serum separator tube (gold top) for subsequent determinations. ??Contact the Clinical Chemistry Laboratory if there are any questions. Chloride 100 98 - 107 mmol/L [facility] Carbon Dioxide 30 22 - 31 mmol/L [facility] Anion Gap 9 5 - 15 mmol/L [facility] Calcium 10.0 8.5 - 10.5 mg/dL [facility] Est Glomerular Filtration Rate 98 >=60 mL/min/1. 73 m?? [facility] Comment: This patient's estimated GFR was [...] Pascal MD CHEMISTRY ORDERABLES Performing Organization Address [facility] Co de Phone Number [facility] [place] [address] * (ABNORMAL) Phosphorus (09/24/2022 5:31 AM EDT) Phosphorus 4.6(H) 2.5 - 4.5 mg/dL [facility] Blood 09/24/2022 5:31 AM EDT 09/24/2022 5:48 AM EDT Narrative Resulting Agency Comment Spec In Lab Richard Pascal MD CHEMISTRY ORDERABLES Performing Organization Address [facility] Co de Phone Number [facility] [place] [address] * Magnesium (09/24/2022 5:31 AM EDT) Magnesium 0.95 0.69 - 1.07 mmol/L [facility] Blood 09/24/2022 5:31 AM EDT 09/24/2022 5:48 AM EDT Narrative Resulting Agency Comment Spec In Lab Richard Pascal MD CHEMISTRY ORDERABLES Performing Organization Address [facility] Co de Phone Number [facility] [place] [address] * (ABNORMAL) POCT Glucose (09/23/2022 7:58 PM EDT) Glucose, POC 226(H) 65 - 199 mg/dL [facility] Comment: Supplemental ranges: <140 mg/dL before meals <180 mg/dL all other times of the day Blood 09/23/2022 7:58 PM EDT 09/23/2022 7:58 PM EDT Jose Mcleod MD POINT OF CARE TEST O RDERABLES Performing Organization Address City/[facility] Co de Phone Number [facility] [place] [address] * POCT Glucose (09/23/2022 4:40 PM EDT) Glucose, POC 94 65 - 199 mg/dL [facility] Comment: Supplemental ranges: <140 mg/dL before meals <180 mg/dL all other times of the day Blood 09/23/2022 4:40 PM EDT 09/23/2022 4:40 PM EDT Jose Mcleod MD POINT OF CARE TEST O RDERAREYMUNDO Performing Organization Address [facility] Co de Phone Number [facility] [place] [address] * (ABNORMAL) POCT Glucose (09/23/2022 2:00 PM EDT) Glucose, POC 276(H) 65 - 199 mg/dL [facility] Comment: Supplemental ranges: <140 mg/dL before meals <180 mg/dL all other times of the day Blood 09/23/2022 2:00 PM EDT 09/23/2022 2:00 PM EDT Jose Mcleod MD POINT OF CARE TEST O RDERABLES Performing Organization Address [facility] Co de Phone Number [facility] [place] [address] * (ABNORMAL) POCT Glucose (09/23/2022 1:14 PM EDT) Glucose, POC 324(H) 65 - 199 mg/dL [facility] Comment: Supplemental ranges: <140 mg/dL before meals <180 mg/dL all other times of the day Blood 09/23/2022 1:14 PM EDT 09/23/2022 1:14 PM EDT Jose Mcleod MD POINT OF CARE TEST O RDERABLES Performing Organization Address [facility] Co de Phone Number [facility] [place] [address] * (ABNORMAL) POCT Glucose (09/23/2022 11:37 AM EDT) Glucose, POC 291(H) 65 - 199 mg/dL [facility] Comment: Supplemental ranges: <140 mg/dL before meals <180 mg/dL all other times of the day Blood 09/23/2022 11:3 7 AM EDT 09/23/2022 11:37 AM EDT Jose Mcleod MD POINT OF CARE TEST O RDERABLES Performing Organization Address [facility] Co de Phone Number [facility] [place] [address] * POCT Glucose (09/23/2022 6:24 AM EDT) Glucose, POC 191 65 - 199 mg/dL [facility] Comment: Supplemental ranges: <140 mg/dL before meals <180 mg/dL all other times of the day Blood 09/23/2022 6:24 AM EDT 09/23/2022 6:24 AM EDT Jose Mcleod MD POINT OF CARE TEST O RDERABLES Performing Organization Address [facility] Co de Phone Number [facility] [place] [address] * Scan, Peripheral Blood (09/23/2022 5:02 AM EDT) Plat estimate Normal [facility]SPITAL [facility] RBC Morphology Abnormal [facility] Microcyte 6-10 /HPF [facility] HOSPI [facility] Hypochromia Moderate [facility] HOS PITAL [facility] Ovalocytes 1-5 /HPF [facility] HOSP ITAL LABORATORY Target Cells 1-5 /HPF [facility] HO SPITAL [facility]ORATORY Blood 09/23/2022 5:02 AM EDT 09/23/2022 5:23 AM EDT Narrative Resulting Agency Comment Spec In Lab Alan Hunt MD HEMATOLOGY ORDERABLE S [facility] [place] [address] * (ABNORMAL) Differential, Automated (09/23/2022 5:02 AM EDT) Neutrophil % 51.8 % [facility] Neutrophil Absolute 3.50 1.70 - 6.10 x10(3)/mc L [facility] Lymph % 32.8 % [facility] Lymphocytes Abs 2.2 0.9 - 3.2 x10(3)/mc L [facility] Monocyte % 10.3 % [facility] Monocyte Abs 0.7 0.3 - 0.9 x10(3)/mc L [facility] Eos % 2.8 % [facility] Eosinophils Abs 0.2 0.0 - 0.4 x10(3)/mc L [facility] Basophil % 1.6 % [facility] Baso Absolute 0.1 0.0 - 0.1 x10(3)/mc L [facility] Immature Gran % 0.70 % [facility] Comment: Immature granulocytes(IG's)percentage and absolute count will include metamyelocytes, myelocytes, and promyelocytes. Blood smears from CBCs yielding IG's will be scanned manually for concordance. If this scan disagrees with the automated IG or if promyelocytes are noted, a manual differential will be performed. Immature Gran Absolute 0.05(H) 0.00 - 0.04 x10(3)/mc L [facility] Blood 09/23/2022 5:02 AM EDT 09/23/2022 5:23 AM EDT Narrative Resulting Agency Comment Spec In Lab Alan Hunt MD HEMATOLOGY ORDERABLE S [facility] [place] [address] * (ABNORMAL) Hemogram (09/23/2022 5:02 AM EDT) White Blood Cell 6.8 4.0 - 9.5 x10(3)/mc L [facility] Red Blood Cell 4.78 4.00 - 5.21 x10(6)/mc L [facility] Hemoglobin 11.5(L) 11.7 - 15.5 g/dL [facility] Hematocrit 38.4 35.7 - 45.8 % [facility] Mean Cell Volume 80.3(L) 82.6 - 94.4 fL [facility] Mean Cell Hemoglobin 24.1(L) 27.1 - 32.0 pg [facility] Mean Cell Hemoglobin Concentration 29.9(L) 31.7 - 35.0 g/dL [facility] Platelet 222 145 - 357 x10(3)/mc L [facility] RDW Standard Deviation 81.1(H) 37.0 - 46.0 fL [facility] RDW coefficient of variation 28.9(H) 11.5 - 14.1 % [facility] Mean Platelet Volume Not Measured 7.6 - 12.9 fL [facility] NRBC% auto 0.0 % [facility] ITAL [facility] NRBC Absolute 0.000 0.000 - 0.000 x10(3)/ L [facility] Blood 09/23/2022 5:02 AM EDT 09/23/2022 5:23 AM EDT Narrative Resulting Agency Comment Spec In Lab Alan Hunt MD HEMATOLOGY ORDERABLE S [facility] [place] [address] * (ABNORMAL) Basic Metabolic Panel (non-fasting) (09/23/2022 5:02 AM EDT) Glucose 203(H) 65 - 199 mg/dL [facility] Comment:Diabetes: >=200 mg/d L plus symptoms Blood Urea Nitrogen 28(H) 8 - 18 mg/dL [facility] Creatinine 0.57(L) 0.70 - 1.20 mg/dL [facility] Sodium 139 135 - 145 mmol/L [facility] Potassium 4.6 3.5 - 5.0 mmol/L [facility] Comment: Please note: ??Patients with WBC >100,000 may have falsely elevated Potassium levels. ??For accurate Potassium quantification in these patients send serum separator tube (gold top) for subsequent determinations. ??Contact the Clinical Chemistry Laboratory if there are any questions. Chloride 101 98 - 107 mmol/L [facility] Carbon Dioxide 30 22 - 31 mmol/L [facility] Anion Gap 8 5 - 15 mmol/L [facility] Calcium 10.0 8.5 - 10.5 mg/dL [facility] Est Glomerular Filtration Rate 103 >=60 mL/min/1. 73 m?? [facility] Comment: This patient's estimated GFR was [...] In Lab Richard Pascal MD CHEMISTRY ORDERABLES [facility] [place] [address] * Phosphorus (09/23/2022 5:02 AM EDT) Phosphorus 4.4 2.5 - 4.5 mg/dL [facility] Blood 09/23/2022 5:02 AM EDT 09/23/2022 5:23 AM EDT Narrative Resulting Agency Comment Spec In Lab Richard Pascal MD CHEMISTRY ORDERABLES [facility] [place] [address] * Magnesium (09/23/2022 5:02 AM EDT) Magnesium 0.91 0.69 - 1.07 mmol/L [facility] Blood 09/23/2022 5:02 AM EDT 09/23/2022 5:23 AM EDT Narrative Resulting Agency Comment Spec In Lab Richard Pascal MD CHEMISTRY ORDERABLES Performing Organization Address City/[facility]/ZIP Co de Phone Number [facility] [place] [address] * POCT Glucose (09/22/2022 8:23 PM EDT) Glucose, POC 185 65 - 199 mg/dL [facility] Comment: Supplemental ranges: <140 mg/dL before meals <180 mg/dL all other times of the day Blood 09/22/2022 8:23 PM EDT 09/22/2022 8:23 PM EDT Jose Mcleod MD POINT OF CARE TEST O RDERABLES Performing Organization Address [facility] Co de Phone Number [facility] [place] [address] * (ABNORMAL) POCT Glucose (09/22/2022 4:35 PM EDT) Glucose, POC 220(H) 65 - 199 mg/dL [facility] Comment: Supplemental ranges: <140 mg/dL before meals <180 mg/dL all other times of the day Blood 09/22/2022 4:35 PM EDT 09/22/2022 4:35 PM EDT Jose Mcleod MD POINT OF CARE TEST O RDERABLES Performing Organization Address City/[facility] Co de Phone Number [facility] [place] [address] * (ABNORMAL) POCT Glucose (09/22/2022 11:24 AM EDT) Glucose, POC 304(H) 65 - 199 mg/dL [facility] Comment: Supplemental ranges: <140 mg/dL before meals <180 mg/dL all other times of the day Blood 09/22/2022 11:2 4 AM EDT 09/22/2022 11:24 AM EDT Jose Mcleod MD POINT OF CARE TEST O RDERABLES [facility] [place] [address] * POCT Glucose (09/22/2022 6:38 AM EDT) Glucose, POC 188 65 - 199 mg/dL [facility] Comment: Supplemental ranges: <140 mg/dL before meals <180 mg/dL all other times of the day Blood 09/22/2022 6:38 AM EDT 09/22/2022 6:38 AM EDT Jose Mcleod MD POINT OF CARE TEST O RDERAREYMUNDO Performing Organization Address [facility] Co de Phone Number [facility] [place] [address] * (ABNORMAL) Basic Metabolic Panel (non-fasting) (09/22/2022 5:44 AM EDT) Glucose Not Perf 65 - 199 [facility] Comment: Sample improperly processed prior to receipt. Diabetes: >=200 mg/dL plus symptoms Blood Urea Nitrogen 24(H) 8 - 18 mg/dL [facility] Creatinine 0.56(L) 0.70 - 1.20 mg/dL [facility] Sodium 139 135 - 145 mmol/L [facility] Potassium 4.7 3.5 - 5.0 mmol/L [facility] Comment: Please note: ??Patients with WBC >100,000 may have falsely elevated Potassium levels. ??For accurate Potassium quantification in these patients send serum separator tube (gold top) for subsequent determinations. ??Contact the Clinical Chemistry Laboratory if there are any questions. Chloride 101 98 - 107 mmol/L [facility] Carbon Dioxide 28 22 - 31 mmol/L [facility] Anion Gap 10 5 - 15 mmol/L [facility] Calcium 10.3 8.5 - 10.5 mg/dL [facility] Est Glomerular Filtration Rate 103 >=60 mL/min/1. 73 m?? [facility] [...] Pascal MD CHEMISTRY ORDERABLES Performing Organization Address [facility] Co de Phone Number [facility] [place] [address] * Phosphorus (09/22/2022 5:44 AM EDT) Phosphorus 4.0 2.5 - 4.5 mg/dL [facility] Blood 09/22/2022 5:44 AM EDT 09/22/2022 7:46 AM EDT Narrative Resulting Agency Comment Spec In Lab Richard Pascal MD CHEMISTRY ORDERABLES Performing Organization Address [facility] Co de Phone Number [facility] [place] [address] * Magnesium (09/22/2022 5:44 AM EDT) Magnesium 0.89 0.69 - 1.07 mmol/L [facility] Blood 09/22/2022 5:44 AM EDT 09/22/2022 7:46 AM EDT Narrative Resulting Agency Comment Spec In Lab Richard Pascal MD CHEMISTRY ORDERABLES Performing Organization Address City/[facility] Co de Phone Number [facility] [place] [address] * POCT Glucose (09/21/2022 8:05 PM EDT) Glucose, POC 168 65 - 199 mg/dL [facility] Comment: Supplemental ranges: <140 mg/dL before meals <180 mg/dL all other times of the day Blood 09/21/2022 8:05 PM EDT 09/21/2022 8:05 PM EDT Jose Mcleod MD POINT OF CARE TEST O RDERAREYMUNDO [facility] [place] [address] * (ABNORMAL) POCT Glucose (09/21/2022 4:28 PM EDT) Glucose, POC 258(H) 65 - 199 mg/dL [facility] Comment: Supplemental ranges: <140 mg/dL before meals <180 mg/dL all other times of the day Blood 09/21/2022 4:28 PM EDT 09/21/2022 4:28 PM EDT Jose Mcleod MD POINT OF CARE TEST O RDERABLES Performing Organization Address City/[facility] Co de Phone Number [facility] [place] [address] * (ABNORMAL) POCT Glucose (09/21/2022 11:27 AM EDT) Glucose, POC 221(H) 65 - 199 mg/dL [facility] Comment: Supplemental ranges: <140 mg/dL before meals <180 mg/dL all other times of the day Blood 09/21/2022 11:2 7 AM EDT 09/21/2022 11:27 AM EDT Jose Mcleod MD POINT OF CARE TEST O RDERAREYMUNDO Performing Organization Address City/[facility] Co de Phone Number [facility] [place] [address] * (ABNORMAL) POCT Glucose (09/21/2022 7:00 AM EDT) Glucose, POC 211(H) 65 - 199 mg/dL [facility] Comment: Supplemental ranges: <140 mg/dL before meals <180 mg/dL all other times of the day Blood 09/21/2022 7:00 AM EDT 09/21/2022 7:00 AM EDT Olamide Stallings MD POINT OF CARE TEST O RDERABLES [facility] [place] [address] * (ABNORMAL) Basic Metabolic Panel (non-fasting) (09/21/2022 5:54 AM EDT) Glucose 203(H) 65 - 199 mg/dL [facility] Comment:Diabetes: >=200 mg/d L plus symptoms Blood Urea Nitrogen 23(H) 8 - 18 mg/dL [facility] Creatinine 0.51(L) 0.70 - 1.20 mg/dL [facility] Sodium 137 135 - 145 mmol/L [facility] Potassium 4.6 3.5 - 5.0 mmol/L [facility] Comment: Please note: ??Patients with WBC >100,000 may have falsely elevated Potassium levels. ??For accurate Potassium quantification in these patients send serum separator tube (gold top) for subsequent determinations. ??Contact the Clinical Chemistry Laboratory if there are any questions. Chloride 101 98 - 107 mmol/L [facility] Carbon Dioxide 27 22 - 31 mmol/L [facility] Anion Gap 9 5 - 15 mmol/L [facility] Calcium 9.8 8.5 - 10.5 mg/dL [facility] Est Glomerular Filtration Rate 105 >=60 mL/min/1. 73 m?? [facility] Comment: This patient's estimated GFR was [...] Pascal MD CHEMISTRY ORDERABLES Performing Organization Address [facility] Co de Phone Number [facility] [place] [address] * Phosphorus (09/21/2022 5:54 AM EDT) Phosphorus 4.0 2.5 - 4.5 mg/dL [facility] Blood 09/21/2022 5:54 AM EDT 09/21/2022 6:10 AM EDT Narrative Resulting Agency Comment Spec In Lab Richard Pascal MD CHEMISTRY ORDERABLES Performing Organization Address [facility] Co de Phone Number [facility] [place] [address] * Magnesium (09/21/2022 5:54 AM EDT) Magnesium 0.84 0.69 - 1.07 mmol/L [facility] Blood 09/21/2022 5:54 AM EDT 09/21/2022 6:10 AM EDT Narrative Resulting Agency Comment Spec In Lab Richard Pascal MD CHEMISTRY ORDERABLES Performing Organization Address [facility] de Phone Number [facility] [place] [address] * POCT Glucose (09/20/2022 11:25 PM EDT) Glucose, POC 166 65 - 199 mg/dL [facility] Comment: Supplemental ranges: <140 mg/dL before meals <180 mg/dL all other times of the day Blood 09/20/2022 11:2 5 PM EDT 09/20/2022 11:25 PM EDT Olamide Stallings MD POINT OF CARE TEST O RDERABLES Performing Organization Address City/[facility] Co de Phone Number [facility] [place] [address] * (ABNORMAL) POCT Glucose (09/20/2022 9:19 PM EDT) Glucose, POC 291(H) 65 - 199 mg/dL [facility] Comment: Supplemental ranges: <140 mg/dL before meals <180 mg/dL all other times of the day Blood 09/20/2022 9:19 PM EDT 09/20/2022 9:19 PM EDT Olamide Stallings MD POINT OF CARE TEST O RDERABLES Performing Organization Address [facility] Co de Phone Number [facility] [place] [address] * (ABNORMAL) POCT Glucose (09/20/2022 4:09 PM EDT) Glucose, POC 221(H) 65 - 199 mg/dL [facility] Comment: Supplemental ranges: <140 mg/dL before meals <180 mg/dL all other times of the day Blood 09/20/2022 4:09 PM EDT 09/20/2022 4:09 PM EDT Olamide Stallings MD POINT OF CARE TEST O RDERABLES Performing Organization Address [facility] Co de Phone Number [facility] [place] [address] * (ABNORMAL) POCT Glucose (09/20/2022 11:06 AM EDT) Glucose, POC 221(H) 65 - 199 mg/dL [facility] Comment: Supplemental ranges: <140 mg/dL before meals <180 mg/dL all other times of the day Blood 09/20/2022 11:0 6 AM EDT 09/20/2022 11:06 AM EDT Olamide Stallings MD POINT OF CARE TEST O RDERABLES Performing Organization Address [facility] Co de Phone Number [facility] [place] [address] * POCT Glucose (09/20/2022 5:39 AM EDT) Glucose, POC 187 65 - 199 mg/dL [facility] Comment: Supplemental ranges: <140 mg/dL before meals <180 mg/dL all other times of the day Blood 09/20/2022 5:39 AM EDT 09/20/2022 5:39 AM EDT Olamide Stallings MD POINT OF CARE TEST O RDERABLES [facility] [place] [address] * (ABNORMAL) Differential, Automated (09/20/2022 5:06 AM EDT) Pathologist [facility] Neutrophil % 43.5 % [facility] Neutrophil Absolute 2.83 1.70 - 6.10 x10(3)/mc L [facility] Lymph % 40.2 % [facility] Lymphocytes Abs 2.6 0.9 - 3.2 x10(3)/[facility] Monocyte % 11.1 % [facility] Monocyte Abs 0.7 0.3 - 0.9 x10(3)/[facility] Eos % 2.8 % [facility] Eosinophils Abs 0.2 0.0 - 0.4 x10(3)/[facility] Basophil % 1.5 % [facility] Baso Absolute 0.1 0.0 - 0.1 x10(3)/ L [facility] Immature Gran % 0.90 % [facility] Comment: Immature granulocytes(IG's)percentage and absolute count will include metamyelocytes, myelocytes, and promyelocytes. Blood smears from CBCs yielding IG's will be scanned manually for concordance. If this scan disagrees with the automated IG or if promyelocytes are noted, a manual differential will be performed. Immature Gran Absolute 0.06(H) 0.00 - 0.04 x10(3)/mc L [facility] Blood 09/20/2022 5:06 AM EDT 09/20/2022 5:29 AM EDT Narrative Resulting Agency Comment Spec In Lab Alan Hunt MD HEMATOLOGY ORDERABLE S [facility] [place] [address] * (ABNORMAL) Hemogram (09/20/2022 5:06 AM EDT) White Blood Cell 6.5 4.0 - 9.5 x10(3)/mc L [facility] Red Blood Cell 4.68 4.00 - 5.21 x10(6)/mc L [facility] Hemoglobin 11.1(L) 11.7 - 15.5 g/dL [facility] Hematocrit 36.8 35.7 - 45.8 % [facility] Mean Cell Volume 78.6(L) 82.6 - 94.4 fL [facility] Mean Cell Hemoglobin 23.7(L) 27.1 - 32.0 pg [facility] Mean Cell Hemoglobin Concentration 30.2(L) 31.7 - 35.0 g/dL [facility] Platelet 232 145 - 357 x10(3)/mc L [facility] RDW Standard Deviation 78.3(H) 37.0 - 46.0 fL [facility] RDW coefficient of variation 29.0(H) 11.5 - 14.1 % [facility] Mean Platelet Volume Not Measured 7.6 - 12.9 fL [facility] NRBC% auto 0.0 % [facility] NRBC Absolute 0.000 0.000 - 0.000 x10(3)/mc L [facility] Blood 09/20/2022 5:06 AM EDT 09/20/2022 5:29 AM EDT Narrative Resulting Agency Comment Spec In Lab Alan Hunt MD HEMATOLOGY ORDERABLE S Performing Organization Address [facility]/ZIP Co de Phone Number [facility] [place] [address] * (ABNORMAL) Basic Metabolic Panel (non-fasting) (09/20/2022 5:06 AM EDT) Glucose 206(H) 65 - 199 mg/dL [facility] Comment:Diabetes: >=200 mg/d L plus symptoms Blood Urea Nitrogen 23(H) 8 - 18 mg/dL [facility] Creatinine 0.50(L) 0.70 - 1.20 mg/dL [facility] Sodium 135 135 - 145 mmol/L [facility] Potassium 4.9 3.5 - 5.0 mmol/L [facility] Comment: Please note: ??Patients with WBC >100,000 may have falsely elevated Potassium levels. ??For accurate Potassium quantification in these patients send serum separator tube (gold top) for subsequent determinations. ??Contact the Clinical Chemistry Laboratory if there are any questions. Chloride 99 98 - 107 mmol/L [facility] Carbon Dioxide 26 22 - 31 mmol/L [facility] Anion Gap 10 5 - 15 mmol/L [facility] Calcium 9.6 8.5 - 10.5 mg/dL [facility] Est Glomerular Filtration Rate 106 >=60 mL/min/1. 73 m?? [facility] Comment: This patient's estimated GFR was [...] In Lab Richard Pascal MD CHEMISTRY ORDERABLES [facility] [place] [address] * Phosphorus (09/20/2022 5:06 AM EDT) Phosphorus 3.5 2.5 - 4.5 mg/dL [facility] Blood 09/20/2022 5:06 AM EDT 09/20/2022 5:29 AM EDT Narrative Resulting Agency Comment Spec In Lab Richard Pascal MD CHEMISTRY ORDERABLES Performing Organization Address [facility] Co de Phone Number [facility] [place] [address] * Magnesium (09/20/2022 5:06 AM EDT) Magnesium 0.83 0.69 - 1.07 mmol/L [facility] Blood 09/20/2022 5:06 AM EDT 09/20/2022 5:29 AM EDT Narrative Resulting Agency Comment Spec In Lab Richard Pascal MD CHEMISTRY ORDERABLES Performing Organization Address [facility] de Phone Number [facility] [place] [address] * (ABNORMAL) POCT Glucose (09/19/2022 10:53 PM EDT) Glucose, POC 209(H) 65 - 199 mg/dL [facility] Comment: Supplemental ranges: <140 mg/dL before meals <180 mg/dL all other times of the day Blood 09/19/2022 10:5 3 PM EDT 09/19/2022 10:53 PM EDT Olamide Stallings MD POINT OF CARE TEST O RDERAREYMUNDO Performing Organization Address [facility] Co de Phone Number [facility] [place] [address] * (ABNORMAL) POCT Glucose (09/19/2022 8:51 PM EDT) Glucose, POC 329(H) 65 - 199 mg/dL [facility] Comment: Supplemental ranges: <140 mg/dL before meals <180 mg/dL all other times of the day Blood 09/19/2022 8:51 PM EDT 09/19/2022 8:51 PM EDT Olamide Stallings MD POINT OF CARE TEST O RDERABLES Performing Organization Address City/[facility]/ZIP Co de Phone Number [facility] [place] [address] * (ABNORMAL) POCT Glucose (09/19/2022 7:57 PM EDT) Glucose, POC 275(H) 65 - 199 mg/dL [facility] Comment: Supplemental ranges: <140 mg/dL before meals <180 mg/dL all other times of the day Blood 09/19/2022 7:57 PM EDT 09/19/2022 7:57 PM EDT Olamide Stallings MD POINT OF CARE TEST O RDERABLES Performing Organization Address [facility] Co de Phone Number [facility] [place] [address] * (ABNORMAL) POCT Glucose (09/19/2022 4:02 PM EDT) Glucose, POC 221(H) 65 - 199 mg/dL [facility] Comment: Supplemental ranges: <140 mg/dL before meals <180 mg/dL all other times of the day Blood 09/19/2022 4:02 PM EDT 09/19/2022 4:02 PM EDT Olamide Stallings MD POINT OF CARE TEST O RDERABLES Performing Organization Address [facility] Co de Phone Number [facility] [place] [address] * POCT Glucose (09/19/2022 11:50 AM EDT) Glucose, POC 194 65 - 199 mg/dL [facility] Comment: Supplemental ranges: <140 mg/dL before meals <180 mg/dL all other times of the day Blood 09/19/2022 11:5 0 AM EDT 09/19/2022 11:50 AM EDT Olamide Stallings MD POINT OF CARE TEST O RDERABLES Performing Organization Address City/[facility]/ZIP Co de Phone Number [facility] [place] [address] * (ABNORMAL) POCT Glucose (09/19/2022 6:45 AM EDT) Glucose, POC 219(H) 65 - 199 mg/dL [facility] Comment: Supplemental ranges: <140 mg/dL before meals <180 mg/dL all other times of the day Blood 09/19/2022 6:45 AM EDT 09/19/2022 6:45 AM EDT Alan Hunt MD POINT OF CARE TEST O RDERABLES [facility] [place] [place] [address] * (ABNORMAL) Basic Metabolic Panel (non-fasting) (09/19/2022 4:39 AM EDT) Glucose 194 65 - 199 mg/dL [facility] Comment:Diabetes: >=200 mg/d L plus symptoms Blood Urea Nitrogen 21(H) 8 - 18 mg/dL [facility] Creatinine 0.52(L) 0.70 - 1.20 mg/dL [facility] Sodium 134(L) 135 - 145 mmol/L [facility] Potassium 4.6 3.5 - 5.0 mmol/L [facility] Comment: Please note: ??Patients with WBC >100,000 may have falsely elevated Potassium levels. ??For accurate Potassium quantification in these patients send serum separator tube (gold top) for subsequent determinations. ??Contact the Clinical Chemistry Laboratory if there are any questions. Chloride 98 98 - 107 mmol/L [facility] Carbon Dioxide 27 22 - 31 mmol/L [facility] Anion Gap 9 5 - 15 mmol/L [facility] Calcium 9.3 8.5 - 10.5 mg/dL [facility] Est Glomerular Filtration Rate 105 >=60 mL/min/1. 73 m?? [facility] Comment: This patient's estimated GFR was [...] In Lab Richard Pascal MD CHEMISTRY ORDERABLES [facility] [place] [address] * Phosphorus (09/19/2022 4:39 AM EDT) Phosphorus 3.3 2.5 - 4.5 mg/dL [facility] Blood 09/19/2022 4:39 AM EDT 09/19/2022 4:51 AM EDT Narrative Resulting Agency Comment Spec In Lab Richard Pascal MD CHEMISTRY ORDERABLES Performing Organization Address City/[facility]/ZIP Co de Phone Number [facility] [place] [address] * Magnesium (09/19/2022 4:39 AM EDT) Magnesium 0.82 0.69 - 1.07 mmol/L [facility] Blood 09/19/2022 4:39 AM EDT 09/19/2022 4:51 AM EDT Narrative Resulting Agency Comment Spec In Lab Richard Pascal MD CHEMISTRY ORDERABLES Performing Organization Address City/[facility]/ZIP Co de Phone Number [facility] [place] [address] * POCT Glucose (09/19/2022 3:49 AM EDT) Glucose, POC 184 65 - 199 mg/dL [facility] Comment: Supplemental ranges: <140 mg/dL before meals <180 mg/dL all other times of the day Blood 09/19/2022 3:49 AM EDT 09/19/2022 3:49 AM EDT Alan Hunt MD POINT OF CARE TEST O RDERAREYMUNDO Performing Organization Address [facility] Co de Phone Number [facility] [place] [address] * POCT Glucose (09/18/2022 11:54 PM EDT) Glucose, POC 175 65 - 199 mg/dL [facility] Comment: Supplemental ranges: <140 mg/dL before meals <180 mg/dL all other times of the day Blood 09/18/2022 11:5 4 PM EDT 09/18/2022 11:54 PM EDT Alan Hunt MD POINT OF CARE TEST O HUGHERAREYMUNDO Performing Organization Address [facility] Co de Phone Number [facility] [place] [address] * (ABNORMAL) POCT Glucose (09/18/2022 9:07 PM EDT) Glucose, POC 242(H) 65 - 199 mg/dL [facility] Comment: Supplemental ranges: <140 mg/dL before meals <180 mg/dL all other times of the day Blood 09/18/2022 9:07 PM EDT 09/18/2022 9:07 PM EDT Alan Hunt MD POINT OF CARE TEST O GABRIELLA Performing Organization Address [facility] Co de Phone Number [facility] [place] [address] * POCT Glucose (09/18/2022 4:32 PM EDT) Glucose, POC 175 65 - 199 mg/dL [facility] Comment: Supplemental ranges: <140 mg/dL before meals <180 mg/dL all other times of the day Blood 09/18/2022 4:32 PM EDT 09/18/2022 4:32 PM EDT Alan Hunt MD POINT OF CARE TEST O RDERABLES Performing Organization Address City/[facility]/ZIP Co de Phone Number [facility] [place] [address] * POCT Glucose (09/18/2022 2:14 PM EDT) Glucose, POC 188 65 - 199 mg/dL [facility] Comment: Supplemental ranges: <140 mg/dL before meals <180 mg/dL all other times of the day Blood 09/18/2022 2:14 PM EDT 09/18/2022 2:14 PM EDT Alan Hunt MD POINT OF CARE TEST O RDERABLES Performing Organization Address [facility] Co de Phone Number [facility] [place] [address] * (ABNORMAL) POCT Glucose (09/18/2022 11:45 AM EDT) Glucose, POC 247(H) 65 - 199 mg/dL [facility] Comment: Supplemental ranges: <140 mg/dL before meals <180 mg/dL all other times of the day Blood 09/18/2022 11:4 5 AM EDT 09/18/2022 11:45 AM EDT Alan Hunt MD POINT OF CARE TEST O RDERABLES Performing Organization Address [facility] Co de Phone Number [facility] [place] [address] * POCT Glucose (09/18/2022 6:47 AM EDT) Glucose, POC 197 65 - 199 mg/dL [facility] Comment: Supplemental ranges: <140 mg/dL before meals <180 mg/dL all other times of the day Blood 09/18/2022 6:47 AM EDT 09/18/2022 6:47 AM EDT Alan Hunt MD POINT OF CARE TEST O RDERABLES [facility] [place] [address] * (ABNORMAL) Basic Metabolic Panel (non-fasting) (09/18/2022 4:53 AM EDT) Glucose 197 65 - 199 mg/dL [facility] Comment:Diabetes: >=200 mg/d L plus symptoms Blood Urea Nitrogen 18 8 - 18 mg/dL [facility] Creatinine 0.53(L) 0.70 - 1.20 mg/dL [facility] Sodium 136 135 - 145 mmol/L [facility] Potassium 4.5 3.5 - 5.0 mmol/L [facility] Comment: Please note: ??Patients with WBC >100,000 may have falsely elevated Potassium levels. ??For accurate Potassium quantification in these patients send serum separator tube (gold top) for subsequent determinations. ??Contact the Clinical Chemistry Laboratory if there are any questions. Chloride 100 98 - 107 mmol/L [facility] Carbon Dioxide 27 22 - 31 mmol/L [facility] Anion Gap 9 5 - 15 mmol/L [facility] Calcium 9.5 8.5 - 10.5 mg/dL [facility] Est Glomerular Filtration Rate 105 >=60 mL/min/1. 73 m?? [facility] Comment: This patient's estimated GFR was [...] Pascal MD CHEMISTRY ORDERABLES Performing Organization Address [facility] Co de Phone Number [facility] [place] [address] * Phosphorus (09/18/2022 4:53 AM EDT) Phosphorus 3.2 2.5 - 4.5 mg/dL [facility] Blood 09/18/2022 4:53 AM EDT 09/18/2022 5:46 AM EDT Narrative Resulting Agency Comment Spec In Lab Richard Pascal MD CHEMISTRY ORDERABLES Performing Organization Address City/[facility] Co de Phone Number [facility] [place] [address] * Magnesium (09/18/2022 4:53 AM EDT) Magnesium 0.79 0.69 - 1.07 mmol/L [facility] Blood 09/18/2022 4:53 AM EDT 09/18/2022 5:46 AM EDT Narrative Resulting Agency Comment Spec In Lab Richard Pascal MD CHEMISTRY ORDERABLES Performing Organization Address [facility] Co de Phone Number [facility] [place] [address] * POCT Glucose (09/18/2022 4:06 AM EDT) Glucose, POC 159 65 - 199 mg/dL [facility] Comment: Supplemental ranges: <140 mg/dL before meals <180 mg/dL all other times of the day Blood 09/18/2022 4:06 AM EDT 09/18/2022 4:06 AM EDT Alan Hunt MD POINT OF CARE TEST O RDERABLES Performing Organization Address City/[facility] Co de Phone Number [facility] [place] [address] * POCT Glucose (09/17/2022 11:02 PM EDT) Glucose, POC 141 65 - 199 mg/dL [facility] Comment: Supplemental ranges: <140 mg/dL before meals <180 mg/dL all other times of the day Blood 09/17/2022 11:0 2 PM EDT 09/17/2022 11:02 PM EDT Alan Hunt MD POINT OF CARE TEST O RDERABLES Performing Organization Address City/[facility] Co de Phone Number [facility] [place] [address] * (ABNORMAL) POCT Glucose (09/17/2022 9:14 PM EDT) Glucose, POC 201(H) 65 - 199 mg/dL [facility] Comment: Supplemental ranges: <140 mg/dL before meals <180 mg/dL all other times of the day Blood 09/17/2022 9:14 PM EDT 09/17/2022 9:14 PM EDT Alan Hunt MD POINT OF CARE TEST O RDERABLES Performing Organization Address [facility] Co de Phone Number [facility] [place] [address] * POCT Glucose (09/17/2022 4:14 PM EDT) Glucose, POC 173 65 - 199 mg/dL [facility] Comment: Supplemental ranges: <140 mg/dL before meals <180 mg/dL all other times of the day Blood 09/17/2022 4:14 PM EDT 09/17/2022 4:14 PM EDT Alan Hunt MD POINT OF CARE TEST O RDERABLES Performing Organization Address City/[facility] Co de Phone Number [facility] [place] [address] * POCT Glucose (09/17/2022 11:34 AM EDT) Glucose, POC 181 65 - 199 mg/dL [facility] Comment: Supplemental ranges: <140 mg/dL before meals <180 mg/dL all other times of the day Blood 09/17/2022 11:3 4 AM EDT 09/17/2022 11:34 AM EDT Alan Hunt MD POINT OF CARE TEST O RDERABLES Performing Organization Address City/[facility] Co de Phone Number [facility] [place] [address] * POCT Glucose (09/17/2022 6:57 AM EDT) Glucose, POC 146 65 - 199 mg/dL [facility] Comment: Supplemental ranges: <140 mg/dL before meals <180 mg/dL all other times of the day Blood 09/17/2022 6:57 AM EDT 09/17/2022 6:57 AM EDT Alan Hunt MD POINT OF CARE TEST O RDERABLES Performing Organization Address [facility] Co de Phone Number [facility] [place] [address] * POCT Glucose (09/17/2022 3:07 AM EDT) Glucose, POC 149 65 - 199 mg/dL [facility] Comment: Supplemental ranges: <140 mg/dL before meals <180 mg/dL all other times of the day Blood 09/17/2022 3:07 AM EDT 09/17/2022 3:07 AM EDT Alan Hunt MD POINT OF CARE TEST O RDERABLES Performing Organization Address [facility] Co de Phone Number [facility] [place] [address] * POCT Glucose (09/17/2022 12:59 AM EDT) Glucose, POC 174 65 - 199 mg/dL [facility] Comment: Supplemental ranges: <140 mg/dL before meals <180 mg/dL all other times of the day Blood 09/17/2022 12:5 9 AM EDT 09/17/2022 12:59 AM EDT Alan Hunt MD POINT OF CARE TEST O RDERABLES [facility] [place] [address] * POCT Glucose (09/16/2022 8:03 PM EDT) Glucose, POC 139 65 - 199 mg/dL [facility] Comment: Supplemental ranges: <140 mg/dL before meals <180 mg/dL all other times of the day Blood 09/16/2022 8:03 PM EDT 09/16/2022 8:03 PM EDT Alan Hunt MD POINT OF CARE TEST O RDERABLES Performing Organization Address [facility] Co de Phone Number [facility] [place] [address] * POCT Glucose (09/16/2022 4:22 PM EDT) Glucose, POC 155 65 - 199 mg/dL [facility] Comment: Supplemental ranges: <140 mg/dL before meals <180 mg/dL all other times of the day Blood 09/16/2022 4:22 PM EDT 09/16/2022 4:22 PM EDT Alan Hunt MD POINT OF CARE TEST O RDERABLES Performing Organization Address [facility] Co de Phone Number [facility] [place] [address] * POCT Glucose (09/16/2022 11:21 AM EDT) Glucose, POC 170 65 - 199 mg/dL [facility] Comment: Supplemental ranges: <140 mg/dL before meals <180 mg/dL all other times of the day Blood 09/16/2022 11:2 1 AM EDT 09/16/2022 11:21 AM EDT Alan Hunt MD POINT OF CARE TEST O RDERABLES Performing Organization Address City/[facility]/ZIP Co de Phone Number [facility] [place] [address] * POCT Glucose (09/16/2022 6:33 AM EDT) Glucose, POC 111 65 - 199 mg/dL [facility] Comment: Supplemental ranges: <140 mg/dL before meals <180 mg/dL all other times of the day Blood 09/16/2022 6:33 AM EDT 09/16/2022 6:33 AM EDT Balaji Myaer MD POINT OF CARE TEST O RDERABLES [facility] [place] [address] * (ABNORMAL) Differential, Automated (09/16/2022 3:08 AM EDT) Pathologist [facility] Neutrophil % 54.3 % [facility] Neutrophil Absolute 3.63 1.70 - 6.10 x10(3)/mc L [facility] Lymph % 28.2 % [facility] Lymphocytes Abs 1.9 0.9 - 3.2 x10(3)/mc L [facility] Monocyte % 12.4 % [facility] Monocyte Abs 0.8 0.3 - 0.9 x10(3)/mc L [facility] Eos % 2.8 % [facility] Eosinophils Abs 0.2 0.0 - 0.4 x10(3)/mc L [facility] Basophil % 1.3 % [facility] Baso Absolute 0.1 0.0 - 0.1 x10(3)/mc L [facility] Immature Gran % 1.00 % [facility] Comment: Immature granulocytes(IG's)percentage and absolute count will include metamyelocytes, myelocytes, and promyelocytes. Blood smears from CBCs yielding IG's will be scanned manually for concordance. If this scan disagrees with the automated IG or if promyelocytes are noted, a manual differential will be performed. Immature Gran Absolute 0.07(H) 0.00 - 0.04 x10(3)/mc L [facility] Blood 09/16/2022 3:08 AM EDT 09/16/2022 3:12 AM EDT Narrative Resulting Agency Comment Spec In Lab Jigar Streeter MD HEMATOLOGY ORDERABLE S [facility] [place] [address] * (ABNORMAL) Hemogram (09/16/2022 3:08 AM EDT) White Blood Cell 6.7 4.0 - 9.5 x10(3)/mc L [facility] Red Blood Cell 4.64 4.00 - 5.21 x10(6)/mc L [facility] Hemoglobin 10.7(L) 11.7 - 15.5 g/dL [facility] Hematocrit 35.6(L) 35.7 - 45.8 % [facility] Mean Cell Volume 76.7(L) 82.6 - 94.4 fL [facility] Mean Cell Hemoglobin 23.1(L) 27.1 - 32.0 pg [facility] Mean Cell Hemoglobin Concentration 30.1(L) 31.7 - 35.0 g/dL [facility] Platelet 242 145 - 357 x10(3)/mc L [facility] RDW Standard Deviation 74.3(H) 37.0 - 46.0 fL [facility] RDW coefficient of variation 28.6(H) 11.5 - 14.1 % [facility] Mean Platelet Volume 9.8 7.6 - 12.9 fL [facility] NRBC% auto 0.0 % [facility] NRBC Absolute 0.000 0.000 - 0.000 x10(3)/mc L [facility] Blood 09/16/2022 3:08 AM EDT 09/16/2022 3:12 AM EDT Narrative Resulting Agency Comment Spec In Lab Jigar Streeter MD HEMATOLOGY ORDERABLE S [facility] [place] [address] * Phosphorus (09/16/2022 3:08 AM EDT) Phosphorus 3.0 2.5 - 4.5 mg/dL [facility] Blood 09/16/2022 3:08 AM EDT 09/16/2022 3:12 AM EDT Narrative Resulting Agency Comment Spec In Lab Richard Pascal MD CHEMISTRY ORDERABLES Performing Organization Address [facility] Co de Phone Number [facility] [place] [address] * Magnesium (09/16/2022 3:08 AM EDT) Magnesium 0.80 0.69 - 1.07 mmol/L [facility] Blood 09/16/2022 3:08 AM EDT 09/16/2022 3:12 AM EDT Narrative Resulting Agency Comment Spec In Lab Richard Pascal MD CHEMISTRY ORDERABLES Performing Organization Address [facility] de Phone Number [facility] [place] [address] * (ABNORMAL) Basic Metabolic Panel (non-fasting) (09/16/2022 3:08 AM EDT) Glucose 161 65 - 199 mg/dL [facility] Comment:Diabetes: >=200 mg/d L plus symptoms Blood Urea Nitrogen 15 8 - 18 mg/dL [facility] Creatinine 0.47(L) 0.70 - 1.20 mg/dL [facility] Sodium 140 135 - 145 mmol/L [facility] Potassium 4.0 3.5 - 5.0 mmol/L [facility] Comment: Please note: ??Patients with WBC >100,000 may have falsely elevated Potassium levels. ??For accurate Potassium quantification in these patients send serum separator tube (gold top) for subsequent determinations. ??Contact the Clinical Chemistry Laboratory if there are any questions. Chloride 103 98 - 107 mmol/L [facility] Carbon Dioxide 29 22 - 31 mmol/L [facility] Anion Gap 8 5 - 15 mmol/L [facility] Calcium 9.4 8.5 - 10.5 mg/dL [facility] Est Glomerular Filtration Rate 108 >=60 mL/min/1. 73 m?? [facility] Comment: This patient's estimated [...] Pascal MD CHEMISTRY ORDERABLES Performing Organization Address City/[facility] Co de Phone Number [facility] [place] [address] * POCT Glucose (09/16/2022 2:59 AM EDT) Glucose, POC 157 65 - 199 mg/dL [facility] Comment: Supplemental ranges: <140 mg/dL before meals <180 mg/dL all other times of the day Blood 09/16/2022 2:59 AM EDT 09/16/2022 2:59 AM EDT Balaji Mayre MD POINT OF CARE TEST O RDERABLES Performing Organization Address [facility] Co de Phone Number [facility] [place] [address] * POCT Glucose (09/15/2022 11:15 PM EDT) Glucose, POC 169 65 - 199 mg/dL [facility] Comment: Supplemental ranges: <140 mg/dL before meals <180 mg/dL all other times of the day Blood 09/15/2022 11:1 5 PM EDT 09/15/2022 11:15 PM EDT Balaji Mayer MD POINT OF CARE TEST O RDERABLES Performing Organization Address City/[facility] Co de Phone Number [facility] [place] [address] * POCT Glucose (09/15/2022 7:17 PM EDT) Glucose, POC 153 65 - 199 mg/dL [facility] Comment: Supplemental ranges: <140 mg/dL before meals <180 mg/dL all other times of the day Blood 09/15/2022 7:17 PM EDT 09/15/2022 7:17 PM EDT Balaji Mayer MD POINT OF CARE TEST O RDAV [facility] [place] [address] * POCT Glucose (09/15/2022 3:46 PM EDT) Glucose, POC 136 65 - 199 mg/dL [facility] Comment: Supplemental ranges: <140 mg/dL before meals <180 mg/dL all other times of the day Blood 09/15/2022 3:46 PM EDT 09/15/2022 3:46 PM EDT Balaji Mayer MD POINT OF CARE TEST O GABRIELLA [facility] [place] [address] * POCT Glucose (09/15/2022 11:15 AM EDT) Glucose, POC 133 65 - 199 mg/dL [facility] Comment: Supplemental ranges: <140 mg/dL before meals <180 mg/dL all other times of the day Blood 09/15/2022 11:1 5 AM EDT 09/15/2022 11:15 AM EDT Balaji Mayer MD POINT OF CARE TEST O GABRIELLA [facility] [place] [address] * POCT Glucose (09/15/2022 6:30 AM EDT) Glucose, POC 95 65 - 199 mg/dL [facility] Comment: Supplemental ranges: <140 mg/dL before meals <180 mg/dL all other times of the day Blood 09/15/2022 6:30 AM EDT 09/15/2022 6:30 AM EDT Balaji Mayer MD POINT OF CARE TEST O RDERABLES [facility] [place] [address] * (ABNORMAL) Differential, Automated (09/15/2022 3:00 AM EDT) Neutrophil % 46.9 % [facility] Neutrophil Absolute 2.78 1.70 - 6.10 x10(3)/[facility] Lymph % 34.9 % [facility] Lymphocytes Abs 2.1 0.9 - 3.2 x10(3)/[facility] Monocyte % 12.1 % [facility] Monocyte Abs 0.7 0.3 - 0.9 x10(3)/[facility] Eos % 3.7 % [facility] Eosinophils Abs 0.2 0.0 - 0.4 x10(3)/[facility] Basophil % 1.2 % [facility] Baso Absolute 0.1 0.0 - 0.1 x10(3)/[facility] Immature Gran % 1.20 % [facility] Comment: Immature granulocytes(IG's)percentage and absolute count will include metamyelocytes, myelocytes, and promyelocytes. Blood smears from CBCs yielding IG's will be scanned manually for concordance. If this scan disagrees with the automated IG or if promyelocytes are noted, a manual differential will be performed. Immature Gran Absolute 0.07(H) 0.00 - 0.04 x10(3)/ L [facility] Blood 09/15/2022 3:00 AM EDT 09/15/2022 3:07 AM EDT Narrative Resulting Agency Comment Spec In Lab Jigar Streeter MD HEMATOLOGY ORDERABLE S [facility] [place] [address] * (ABNORMAL) Hemogram (09/15/2022 3:00 AM EDT) White Blood Cell 5.9 4.0 - 9.5 x10(3)/mc L [facility] Red Blood Cell 4.43 4.00 - 5.21 x10(6)/mc L [facility] Hemoglobin 10.2(L) 11.7 - 15.5 g/dL [facility] Hematocrit 34.4(L) 35.7 - 45.8 % [facility] Mean Cell Volume 77.7(L) 82.6 - 94.4 fL [facility] Mean Cell Hemoglobin 23.0(L) 27.1 - 32.0 pg [facility] Mean Cell Hemoglobin Concentration 29.7(L) 31.7 - 35.0 g/dL [facility] Platelet 252 145 - 357 x10(3)/mc L [facility] RDW Standard Deviation 76.5(H) 37.0 - 46.0 fL [facility] RDW coefficient of variation 29.1(H) 11.5 - 14.1 % [facility] Mean Platelet Volume 9.7 7.6 - 12.9 fL [facility] NRBC% auto 0.0 % [facility] NRBC Absolute 0.000 0.000 - 0.000 x10(3)/mc L [facility] Blood 09/15/2022 3:00 AM EDT 09/15/2022 3:07 AM EDT Narrative Resulting Agency Comment Spec In Lab Jigar Streeter MD HEMATOLOGY ORDERABLE S [facility] [place] [address] * Phosphorus (09/15/2022 3:00 AM EDT) Phosphorus 2.6 2.5 - 4.5 mg/dL [facility] Blood 09/15/2022 3:00 AM EDT 09/15/2022 3:07 AM EDT Narrative Resulting Agency Comment Spec In Lab Richard Pascal MD CHEMISTRY ORDERABLES Performing Organization Address City/[facility]/ZIP Co de Phone Number [facility] [place] [address] * Magnesium (09/15/2022 3:00 AM EDT) Magnesium 0.77 0.69 - 1.07 mmol/L [facility] Blood 09/15/2022 3:00 AM EDT 09/15/2022 3:07 AM EDT Narrative Resulting Agency Comment Spec In Lab Richard Pascal MD CHEMISTRY ORDERABLES Performing Organization Address [facility] de Phone Number [facility] [place] [address] * (ABNORMAL) Basic Metabolic Panel (non-fasting) (09/15/2022 3:00 AM EDT) Glucose 121 65 - 199 mg/dL [facility] Comment:Diabetes: >=200 mg/d L plus symptoms Blood Urea Nitrogen 11 8 - 18 mg/dL [facility] Creatinine 0.44(L) 0.70 - 1.20 mg/dL [facility] Sodium 140 135 - 145 mmol/L [facility] Potassium 4.0 3.5 - 5.0 mmol/L [facility] Comment: Please note: ??Patients with WBC >100,000 may have falsely elevated Potassium levels. ??For accurate Potassium quantification in these patients send serum separator tube (gold top) for subsequent determinations. ??Contact the Clinical Chemistry Laboratory if there are any questions. Chloride 102 98 - 107 mmol/L [facility] Carbon Dioxide 27 22 - 31 mmol/L [facility] Anion Gap 11 5 - 15 mmol/L [facility] Calcium 9.2 8.5 - 10.5 mg/dL [facility] Est Glomerular Filtration Rate 109 >=60 mL/min/1. 73 m?? [facility] Comment: This patient's estimated GFR was [...] Pascal MD CHEMISTRY ORDERABLES Performing Organization Address City/[facility]/ZIP Co de Phone Number [facility] [place] [address] * POCT Glucose (09/15/2022 2:58 AM EDT) Glucose, POC 114 65 - 199 mg/dL [facility] Comment: Supplemental ranges: <140 mg/dL before meals <180 mg/dL all other times of the day Blood 09/15/2022 2:58 AM EDT 09/15/2022 2:58 AM EDT Balaji Mayer MD POINT OF CARE TEST O RDERABLES Performing Organization Address [facility] Co de Phone Number [facility] [place] [address] * POCT Glucose (09/14/2022 11:29 PM EDT) Glucose, POC 124 65 - 199 mg/dL [facility] Comment: Supplemental ranges: <140 mg/dL before meals <180 mg/dL all other times of the day Blood 09/14/2022 11:2 9 PM EDT 09/14/2022 11:29 PM EDT Balaji Mayer MD POINT OF CARE TEST O RDERABLES Performing Organization Address City/[facility] Co de Phone Number [facility] [place] [address] * XR Hip 2-3 Views Left (09/14/2022 [...] who have questions please contact the health pediatric acute care unit nurse that requested your imaging first. ? Narrative [...] patients who have questions please contactthe health pediatric acute care unit nurse that requested your imaging first. Balaji Mayer MD IMG DX ORDERABLES * POCT Glucose (09/14/2022 7:22 PM EDT) Glucose, POC 120 65 - 199 mg/dL [facility] Comment: Supplemental ranges: <140 mg/dL before meals <180 mg/dL all other times of the day Blood 09/14/2022 7:22 PM EDT 09/14/2022 7:22 PM EDT Balaji Mayer MD POINT OF CARE TEST O RDERABLES [facility] [place] [address] * POCT Glucose (09/14/2022 3:38 PM EDT) Glucose, POC 132 65 - 199 mg/dL [facility] Comment: Supplemental ranges: <140 mg/dL before meals <180 mg/dL all other times of the day Blood 09/14/2022 3:38 PM EDT 09/14/2022 3:38 PM EDT Balaji Mayer MD POINT OF CARE TEST O RDERABLES Performing Organization Address City/[facility]/ZIP Co de Phone Number [facility] [place] [address] * POCT Glucose (09/14/2022 11:01 AM EDT) Glucose, POC 128 65 - 199 mg/dL [facility] Comment: Supplemental ranges: <140 mg/dL before meals <180 mg/dL all other times of the day Blood 09/14/2022 11:0 1 AM EDT 09/14/2022 11:01 AM EDT Balaji Mayer MD POINT OF CARE TEST O RDERABLES Performing Organization Address [facility] Co de Phone Number [facility] [place] [address] * POCT Glucose (09/14/2022 6:33 AM EDT) Glucose, POC 94 65 - 199 mg/dL [facility] Comment: Supplemental ranges: <140 mg/dL before meals <180 mg/dL all other times of the day Blood 09/14/2022 6:33 AM EDT 09/14/2022 6:33 AM EDT Chong Chao MD POINT OF CARE TEST O RDERABLES Performing Organization Address City/[facility]/ZIP Co de Phone Number [facility] [place] [address] * (ABNORMAL) Differential, Automated (09/14/2022 3:33 AM EDT) Neutrophil % 49.0 % [facility] Neutrophil Absolute 2.69 1.70 - 6.10 x10(3)/mc L [facility] Lymph % 32.4 % [facility] Lymphocytes Abs 1.8 0.9 - 3.2 x10(3)/mc L [facility] Monocyte % 12.4 % [facility] Monocyte Abs 0.7 0.3 - 0.9 x10(3)/mc L [facility] Eos % 4.2 % [facility] Eosinophils Abs 0.2 0.0 - 0.4 x10(3)/[facility] Basophil % 1.1 % [facility] Baso Absolute 0.1 0.0 - 0.1 x10(3)/[facility] Immature Gran % 0.90 % [facility] Comment: Immature granulocytes(IG's)percentage and absolute count will include metamyelocytes, myelocytes, and promyelocytes. Blood smears from CBCs yielding IG's will be scanned manually for concordance. If this scan disagrees with the automated IG or if promyelocytes are noted, a manual differential will be performed. Immature Gran Absolute 0.05(H) 0.00 - 0.04 x10(3)/[facility] Blood 09/14/2022 3:33 AM EDT 09/14/2022 5:07 AM EDT Narrative Resulting Agency Comment Spec In Lab Jigar Streeter MD HEMATOLOGY ORDERABLE S Performing Organization Address City/State/[facility] Co de Phone Number [facility] [place] [address] * (ABNORMAL) Hemogram (09/14/2022 3:33 AM EDT) White Blood Cell 5.5 4.0 - 9.5 x10(3)/[facility] Red Blood Cell 4.39 4.00 - 5.21 x10(6)/[facility] Hemoglobin 10.1(L) 11.7 - 15.5 g/dL [facility] Hematocrit 33.7(L) 35.7 - 45.8 % [facility] Mean Cell Volume 76.8(L) 82.6 - 94.4 fL [facility] Mean Cell Hemoglobin 23.0(L) 27.1 - 32.0 pg [facility] Mean Cell Hemoglobin Concentration 30.0(L) 31.7 - 35.0 g/dL [facility] Platelet 246 145 - 357 x10(3)/[facility] RDW Standard Deviation 76.3(H) 37.0 - 46.0 fL [facility] RDW coefficient of variation 29.2(H) 11.5 - 14.1 % [facility] Mean Platelet Volume 10.2 7.6 - 12.9 fL [facility] NRBC% auto 0.0 % [facility] NRBC Absolute 0.000 0.000 - 0.000 x10(3)/mc L [facility] Blood 09/14/2022 3:33 AM EDT 09/14/2022 5:07 AM EDT Narrative Resulting Agency Comment Spec In Lab Jigar Streeter MD HEMATOLOGY ORDERABLE S Performing Organization Address City/[facility]/ZIP Co de Phone Number [facility] [place] [address] * Phosphorus (09/14/2022 3:33 AM EDT) Phosphorus 2.9 2.5 - 4.5 mg/dL [facility] Blood 09/14/2022 3:33 AM EDT 09/14/2022 5:07 AM EDT Narrative Resulting Agency Comment Spec In Lab Richard Pascal MD CHEMISTRY ORDERABLES Performing Organization Address [facility] Co de Phone Number [facility] [place] [address] * Magnesium (09/14/2022 3:33 AM EDT) Magnesium 0.74 0.69 - 1.07 mmol/L [facility] Blood 09/14/2022 3:33 AM EDT 09/14/2022 5:07 AM EDT Narrative Resulting Agency Comment Spec In Lab Richard Pascal MD CHEMISTRY ORDERABLES Performing Organization Address [facility] Co de Phone Number [facility] [place] [address] * (ABNORMAL) Basic Metabolic Panel (non-fasting) (09/14/2022 3:33 AM EDT) Glucose Not Perf 65 - 199 [facility] Comment: Sample improperly processed prior to receipt. Diabetes: >=200 mg/dL plus symptoms Blood Urea Nitrogen 10 8 - 18 mg/dL [facility] Creatinine 0.45(L) 0.70 - 1.20 mg/dL [facility] Sodium 140 135 - 145 mmol/L [facility] Potassium 4.1 3.5 - 5.0 mmol/L [facility] Comment: Please note: ??Patients with WBC >100,000 may have falsely elevated Potassium levels. ??For accurate Potassium quantification in these patients send serum separator tube (gold top) for subsequent determinations. ??Contact the Clinical Chemistry Laboratory if there are any questions. Chloride 102 98 - 107 mmol/L [facility] Carbon Dioxide 28 22 - 31 mmol/L [facility] Anion Gap 10 5 - 15 mmol/L [facility] Calcium 9.1 8.5 - 10.5 mg/dL [facility] Est Glomerular Filtration Rate 109 >=60 mL/min/1. 73 m?? [facility] Comment: This patient's estimated GFR was [...] In Lab Richard Pascal MD CHEMISTRY ORDERABLES [facility] [place] [address] * POCT Glucose (09/14/2022 3:29 AM EDT) Glucose, POC 109 65 - 199 mg/dL [facility] Comment: Supplemental ranges: <140 mg/dL before meals <180 mg/dL all other times of the day Blood 09/14/2022 3:29 AM EDT 09/14/2022 3:29 AM EDT Chong Chao MD POINT OF CARE TEST O RDERAREYMUNDO Performing Organization Address [facility] Co de Phone Number [facility] [place] [address] * POCT Glucose (09/13/2022 11:30 PM EDT) Glucose, POC 147 65 - 199 mg/dL [facility] Comment: Supplemental ranges: <140 mg/dL before meals <180 mg/dL all other times of the day Blood 09/13/2022 11:3 0 PM EDT 09/13/2022 11:30 PM EDT Chong Chao MD POINT OF CARE TEST O HUGHERAREYMUNDO Performing Organization Address [facility] Co de Phone Number [facility] [place] [address] * POCT Glucose (09/13/2022 7:24 PM EDT) Glucose, POC 149 65 - 199 mg/dL [facility] Comment: Supplemental ranges: <140 mg/dL before meals <180 mg/dL all other times of the day Blood 09/13/2022 7:24 PM EDT 09/13/2022 7:24 PM EDT Chong Chao MD POINT OF CARE TEST O GABRIELLA Performing Organization Address [facility] Co de Phone Number [facility] [place] [address] * POCT Glucose (09/13/2022 3:40 PM EDT) Glucose, POC 126 65 - 199 mg/dL [facility] Comment: Supplemental ranges: <140 mg/dL before meals <180 mg/dL all other times of the day Blood 09/13/2022 3:40 PM EDT 09/13/2022 3:40 PM EDT Chong Chao MD POINT OF CARE TEST O RDERABLES Performing Organization Address [facility] Co de Phone Number [facility] [place] [address] * (ABNORMAL) Basic Metabolic Panel (non-fasting) (09/13/2022 12:38 PM EDT) Glucose 115 65 - 199 mg/dL [facility] Comment:Diabetes: >=200 mg/d L plus symptoms Blood Urea Nitrogen 8 8 - 18 mg/dL [facility] Creatinine 0.50(L) 0.70 - 1.20 mg/dL [facility] Sodium 140 135 - 145 mmol/L [facility] Potassium 3.8 3.5 - 5.0 mmol/L [facility] Comment: Please note: ??Patients with WBC >100,000 may have falsely elevated Potassium levels. ??For accurate Potassium quantification in these patients send serum separator tube (gold top) for subsequent determinations. ??Contact the Clinical Chemistry Laboratory if there are any questions. Chloride 101 98 - 107 mmol/L [facility] Carbon Dioxide 26 22 - 31 mmol/L [facility] Anion Gap 13 5 - 15 mmol/L [facility] Calcium 9.1 8.5 - 10.5 mg/dL [facility] Est Glomerular Filtration Rate 106 >=60 mL/min/1. 73 m?? [facility] Comment: This patient's estimated GFR was [...] Pascal MD CHEMISTRY ORDERABLES Performing Organization Address [facility]/ZIP Co de Phone Number [facility] [place] [address] * POCT Glucose (09/13/2022 12:08 PM EDT) Glucose, POC 113 65 - 199 mg/dL [facility] Comment: Supplemental ranges: <140 mg/dL before meals <180 mg/dL all other times of the day Blood 09/13/2022 12:0 8 PM EDT 09/13/2022 12:08 PM EDT Chong Chao MD POINT OF CARE TEST O GABRIELLA [facility] [place] [address] * POCT Glucose (09/13/2022 6:31 AM EDT) Glucose, POC 87 65 - 199 mg/dL [facility] Comment: Supplemental ranges: <140 mg/dL before meals <180 mg/dL all other times of the day Blood 09/13/2022 6:31 AM EDT 09/13/2022 6:31 AM EDT Chong Chao MD POINT OF CARE TEST O GABRIELLA Performing Organization Address City/[facility]/ZIP Co de Phone Number [facility] [place] [address] * POCT Glucose (09/13/2022 3:16 AM EDT) Glucose, POC 90 65 - 199 mg/dL [facility] Comment: Supplemental ranges: <140 mg/dL before meals <180 mg/dL all other times of the day Blood 09/13/2022 3:16 AM EDT 09/13/2022 3:16 AM EDT Chong Chao MD POINT OF CARE TEST O GABRIELLA [facility] [place] [address] * (ABNORMAL) Differential, Automated (09/13/2022 3:15 AM EDT) Neutrophil % 44.0 % [facility] Neutrophil Absolute 2.31 1.70 - 6.10 x10(3)/ L [facility] Lymph % 39.0 % [facility] Lymphocytes Abs 2.0 0.9 - 3.2 x10(3)/mc L [facility] Monocyte % 10.7 % [facility] Monocyte Abs 0.6 0.3 - 0.9 x10(3)/[facility] Eos % 3.8 % [facility] Eosinophils Abs 0.2 0.0 - 0.4 x10(3)/ L [facility] Basophil % 1.5 % [facility] Baso Absolute 0.1 0.0 - 0.1 x10(3)/[facility] Immature Gran % 1.00 % [facility] Comment: Immature granulocytes(IG's)percentage and absolute count will include metamyelocytes, myelocytes, and promyelocytes. Blood smears from CBCs yielding IG's will be scanned manually for concordance. If this scan disagrees with the automated IG or if promyelocytes are noted, a manual differential will be performed. Immature Gran Absolute 0.05(H) 0.00 - 0.04 x10(3)/[facility] Blood 09/13/2022 3:15 AM EDT 09/13/2022 3:27 AM EDT Narrative Resulting Agency Comment Spec In Lab Jigar Streeter MD HEMATOLOGY ORDERABLE S Performing Organization Address City/State/[facility] Co de Phone Number [facility] [place] [address] * (ABNORMAL) Hemogram (09/13/2022 3:15 AM EDT) White Blood Cell 5.2 4.0 - 9.5 x10(3)/ L [facility] Red Blood Cell 3.99(L) 4.00 - 5.21 x10(6)/mc L [facility] Hemoglobin 9.2(L) 11.7 - 15.5 g/dL [facility] Hematocrit 30.9(L) 35.7 - 45.8 % [facility] Mean Cell Volume 77.4(L) 82.6 - 94.4 fL [facility] Mean Cell Hemoglobin 23.1(L) 27.1 - 32.0 pg [facility] Mean Cell Hemoglobin Concentration 29.8(L) 31.7 - 35.0 g/dL [facility] Platelet 239 145 - 357 x10(3)/mc L [facility] RDW Standard Deviation 78.1(H) 37.0 - 46.0 fL [facility] RDW coefficient of variation 29.6(H) 11.5 - 14.1 % [facility] Mean Platelet Volume 9.8 7.6 - 12.9 fL [facility] NRBC% auto 0.0 % [facility] NRBC Absolute 0.000 0.000 - 0.000 x10(3)/mc L [facility] Blood 09/13/2022 3:15 AM EDT 09/13/2022 3:27 AM EDT Narrative Resulting Agency Comment Spec In Lab Jigar Streeter MD HEMATOLOGY ORDERABLE S Performing Organization Address City/[facility]/ZIP Co de Phone Number [facility] [place] [address] * Phosphorus (09/13/2022 3:15 AM EDT) Phosphorus 3.0 2.5 - 4.5 mg/dL [facility] Blood 09/13/2022 3:15 AM EDT 09/13/2022 3:27 AM EDT Narrative Resulting Agency Comment Spec In Lab Richard Pascal MD CHEMISTRY ORDERABLES Performing Organization Address [facility]/ZIP Co de Phone Number [facility] [place] [address] * Magnesium (09/13/2022 3:15 AM EDT) Magnesium 0.78 0.69 - 1.07 mmol/L [facility] Blood 09/13/2022 3:15 AM EDT 09/13/2022 3:27 AM EDT Narrative Resulting Agency Comment Spec In Lab Richard Pascal MD CHEMISTRY ORDERABLES Performing Organization Address [facility]/ZIP Co de Phone Number [facility] [place] [address] * (ABNORMAL) Basic Metabolic Panel (non-fasting) (09/13/2022 3:15 AM EDT) Glucose 87 65 - 199 mg/dL [facility] Comment:Diabetes: >=200 mg/d L plus symptoms Blood Urea Nitrogen 8 8 - 18 mg/dL [facility] Creatinine 0.52(L) 0.70 - 1.20 mg/dL [facility] Sodium 141 135 - 145 mmol/L [facility] Potassium 3.6 3.5 - 5.0 mmol/L [facility] Comment: Please note: ??Patients with WBC >100,000 may have falsely elevated Potassium levels. ??For accurate Potassium quantification in these patients send serum separator tube (gold top) for subsequent determinations. ??Contact the Clinical Chemistry Laboratory if there are any questions. Chloride 103 98 - 107 mmol/L [facility] Carbon Dioxide 29 22 - 31 mmol/L [facility] Anion Gap 9 5 - 15 mmol/L [facility] Calcium 8.8 8.5 - 10.5 mg/dL [facility] Est Glomerular Filtration Rate 105 >=60 mL/min/1. 73 m?? [facility] Comment: This patient's estimated GFR was [...] MD CHEMISTRY ORDERABL ES Performing Organization Address City/[facility]/ZIP Co de Phone Number [facility] [place] [address] * POCT Glucose (09/12/2022 11:29 PM EDT) Glucose, POC 105 65 - 199 mg/dL [facility] Comment: Supplemental ranges: <140 mg/dL before meals <180 mg/dL all other times of the day Blood 09/12/2022 11:2 9 PM EDT 09/12/2022 11:29 PM EDT Chong Chao MD POINT OF CARE TEST O RDERAREYMUNDO [facility] [place] [address] * POCT Glucose (09/12/2022 7:24 PM EDT) Glucose, POC 121 65 - 199 mg/dL [facility] Comment: Supplemental ranges: <140 mg/dL before meals <180 mg/dL all other times of the day Blood 09/12/2022 7:24 PM EDT 09/12/2022 7:24 PM EDT Chong Chao MD POINT OF CARE TEST O HUGHERAREYMUNDO Performing Organization Address City/[facility]/ZIP Co de Phone Number [facility] [place] [address] * (ABNORMAL) Basic Metabolic Panel (non-fasting) (09/12/2022 3:40 PM EDT) Glucose 103 65 - 199 mg/dL [facility] Comment:Diabetes: >=200 mg/d L plus symptoms Blood Urea Nitrogen 7(L) 8 - 18 mg/dL [facility] Creatinine 0.53(L) 0.70 - 1.20 mg/dL [facility] Sodium 140 135 - 145 mmol/L [facility] Potassium 4.0 3.5 - 5.0 mmol/L [facility] Comment: Please note: ??Patients with WBC >100,000 may have falsely elevated Potassium levels. ??For accurate Potassium quantification in these patients send serum separator tube (gold top) for subsequent determinations. ??Contact the Clinical Chemistry Laboratory if there are any questions. Chloride 102 98 - 107 mmol/L [facility] Carbon Dioxide 24 22 - 31 mmol/L [facility] Anion Gap 14 5 - 15 mmol/L [facility] Calcium 9.4 8.5 - 10.5 mg/dL [facility] Est Glomerular Filtration Rate 105 >=60 mL/min/1. 73 m?? [facility] Comment: This patient's estimated GFR was [...] In Lab Jigar Streeter MD CHEMISTRY ORDERABLES [facility] [place] [address] * Magnesium (09/12/2022 3:40 PM EDT) Magnesium 0.93 0.69 - 1.07 mmol/L [facility] Blood 09/12/2022 3:40 PM EDT 09/12/2022 3:51 PM EDT Narrative Resulting Agency Comment Spec In Lab Richard Pascal MD CHEMISTRY ORDERABLES [facility] [place] [address] * POCT Glucose (09/12/2022 3:36 PM EDT) Glucose, POC 109 65 - 199 mg/dL [facility] Comment: Supplemental ranges: <140 mg/dL before meals <180 mg/dL all other times of the day Blood 09/12/2022 3:36 PM EDT 09/12/2022 3:36 PM EDT Chong Chao MD POINT OF CARE TEST O RDERABLES Performing Organization Address [facility] Co de Phone Number [facility] [place] [address] * POCT Glucose (09/12/2022 11:37 AM EDT) Glucose, POC 84 65 - 199 mg/dL [facility] Comment: Supplemental ranges: <140 mg/dL before meals <180 mg/dL all other times of the day Blood 09/12/2022 11:3 7 AM EDT 09/12/2022 11:37 AM EDT Chong Chao MD POINT OF CARE TEST O RDERABLES Performing Organization Address [facility] de Phone Number [facility] [place] [address] * POCT Glucose (09/12/2022 6:33 AM EDT) Glucose, POC 98 65 - 199 mg/dL [facility] Comment: Supplemental ranges: <140 mg/dL before meals <180 mg/dL all other times of the day Blood 09/12/2022 6:33 AM EDT 09/12/2022 6:33 AM EDT Molina Flores MD POINT OF CARE TEST ORDERABLES Performing Organization Address [facility] Co de Phone Number [facility] [place] [address] * (ABNORMAL) Differential, Automated (09/12/2022 3:25 AM EDT) Neutrophil % 79.2 % [facility] Neutrophil Absolute 4.22 1.70 - 6.10 x10(3)/mc L [facility] Lymph % 16.4 % [facility] Lymphocytes Abs 0.9 0.9 - 3.2 x10(3)/mc L [facility] Monocyte % 3.2 % [facility] Monocyte Abs 0.2(L) 0.3 - 0.9 x10(3)/[facility] Eos % 0.0 % [facility] Eosinophils Abs 0.0 0.0 - 0.4 x10(3)/[facility] Basophil % 0.6 % [facility] Baso Absolute 0.0 0.0 - 0.1 x10(3)/[facility] Immature Gran % 0.60 % [facility] Comment: Immature granulocytes(IG's)percentage and absolute count will include metamyelocytes, myelocytes, and promyelocytes. Blood smears from CBCs yielding IG's will be scanned manually for concordance. If this scan disagrees with the automated IG or if promyelocytes are noted, a manual differential will be performed. Immature Gran Absolute 0.03 0.00 - 0.04 x10(3)/[facility] Blood 09/12/2022 3:25 AM EDT 09/12/2022 3:33 AM EDT Narrative Resulting Agency Comment Spec In Lab Jigar Streeter MD HEMATOLOGY ORDERABLE S Performing Organization Address City/State/[facility] Co de Phone Number [facility] [place] [address] * (ABNORMAL) Hemogram (09/12/2022 3:25 AM EDT) White Blood Cell 5.3 4.0 - 9.5 x10(3)/[facility] Red Blood Cell 4.23 4.00 - 5.21 x10(6)/[facility] Comment:Dimorphic RBC popula tion. Hemoglobin 9.6(L) 11.7 - 15.5 g/dL [facility] Hematocrit 32.4(L) 35.7 - 45.8 % [facility] Mean Cell Volume 76.6(L) 82.6 - 94.4 fL [facility] Mean Cell Hemoglobin 22.7(L) 27.1 - 32.0 pg [facility] Mean Cell Hemoglobin Concentration 29.6(L) 31.7 - 35.0 g/dL [facility] Platelet 241 145 - 357 x10(3)/mc L [facility] RDW Standard Deviation 78.0(H) 37.0 - 46.0 fL [facility] RDW coefficient of variation 29.6(H) 11.5 - 14.1 % [facility] Mean Platelet Volume 9.9 7.6 - 12.9 fL [facility] NRBC% auto 0.0 % [facility] NRBC Absolute 0.000 0.000 - 0.000 x10(3)/mc L [facility] Blood 09/12/2022 3:25 AM EDT 09/12/2022 3:33 AM EDT Narrative Resulting Agency Comment Spec In Lab Jigar Streeter MD HEMATOLOGY ORDERABLE S Performing Organization Address [facility] Co de Phone Number [facility] [place] [address] * Phosphorus (09/12/2022 3:25 AM EDT) Phosphorus 3.6 2.5 - 4.5 mg/dL [facility] Blood 09/12/2022 3:25 AM EDT 09/12/2022 3:33 AM EDT Narrative Resulting Agency Comment Spec In Lab Richard Pascal MD CHEMISTRY ORDERABLES Performing Organization Address [facility] Co de Phone Number [facility] [place] [address] * (ABNORMAL) Basic Metabolic Panel (non-fasting) (09/12/2022 3:25 AM EDT) Glucose 123 65 - 199 mg/dL [facility] Comment:Diabetes: >=200 mg/d L plus symptoms Blood Urea Nitrogen 8 8 - 18 mg/dL [facility] Creatinine 0.49(L) 0.70 - 1.20 mg/dL [facility] Sodium 139 135 - 145 mmol/L [facility] Potassium 4.5 3.5 - 5.0 mmol/L [facility] Comment: result rechecked-J Please note: ??Patients with WBC >100,000 may have falsely elevated Potassium levels. ??For accurate Potassium quantification in these patients send serum separator tube (gold top) for subsequent determinations. ??Contact the Clinical Chemistry Laboratory if there are any questions. Chloride 104 98 - 107 mmol/L [facility] Carbon Dioxide 26 22 - 31 mmol/L [facility] Anion Gap 9 5 - 15 mmol/L [facility] Calcium 9.2 8.5 - 10.5 mg/dL [facility] Est Glomerular Filtration Rate 106 >=60 mL/min/1. 73 m?? [facility] Comment: This patient's estimated GFR was [...] In Lab Richard Pascal MD CHEMISTRY ORDERABLES [facility] [place] [address] * Magnesium (09/12/2022 3:25 AM EDT) Magnesium 0.76 0.69 - 1.07 mmol/L [facility] Blood 09/12/2022 3:25 AM EDT 09/12/2022 3:33 AM EDT Narrative Resulting Agency Comment Spec In Lab Richard Pascal MD CHEMISTRY ORDERABLES [facility] [place] [address] * POCT Glucose (09/12/2022 3:07 AM EDT) Glucose, POC 124 65 - 199 mg/dL [facility] Comment: Supplemental ranges: <140 mg/dL before meals <180 mg/dL all other times of the day Blood 09/12/2022 3:07 AM EDT 09/12/2022 3:07 AM EDT Molina Flores MD POINT OF CARE TEST ORDERABLES [facility] [place] [address] * POCT Glucose (09/11/2022 11:30 PM EDT) Glucose, POC 175 65 - 199 mg/dL [facility] Comment: Supplemental ranges: <140 mg/dL before meals <180 mg/dL all other times of the day Blood 09/11/2022 11:3 0 PM EDT 09/11/2022 11:30 PM EDT Molina Flores MD POINT OF CARE TEST ORDERABLES [facility] [place] [address] * POCT Glucose (09/11/2022 7:59 PM EDT) Glucose, POC 139 65 - 199 mg/dL [facility] Comment: Supplemental ranges: <140 mg/dL before meals <180 mg/dL all other times of the day Blood 09/11/2022 7:59 PM EDT 09/11/2022 7:59 PM EDT Molina Flores MD POINT OF CARE TEST ORDERABLES [facility] [place] [address] * POCT Glucose (09/11/2022 5:25 PM EDT) Glucose, POC 156 65 - 199 mg/dL [facility] Comment: Supplemental ranges: <140 mg/dL before meals <180 mg/dL all other times of the day Blood 09/11/2022 5:25 PM EDT 09/11/2022 5:25 PM EDT Molina Flores MD POINT OF CARE TEST ORDERABLES [facility] [place] [address] * IR G-Tube Placement (09/11/2022 5:19 PM [...] barrier technique was used throughout. ??A 4 Eritrean glide catheter??was placed??as a??nasoenteric tube??under fluoroscopy with [...] Attending: Dr. Hailey Meredith performed this procedure. Molina Flores MD [facility] IR ORDERABLES * POCT Glucose (09/11/2022 11:35 AM EDT) Glucose, POC 154 65 - 199 mg/dL [facility] Comment: Supplemental ranges: <140 mg/dL before meals <180 mg/dL all other times of the day Blood 09/11/2022 11:3 5 AM EDT 09/11/2022 11:35 AM EDT Molina Flores MD POINT OF CARE TEST ORDERABLES [facility] [place] [address] * POCT Glucose (09/11/2022 6:47 AM EDT) Glucose, POC 147 65 - 199 mg/dL [facility] Comment: Supplemental ranges: <140 mg/dL before meals <180 mg/dL all other times of the day Blood 09/11/2022 6:47 AM EDT 09/11/2022 6:47 AM EDT Molina Flores MD POINT [place] [address] * Differential, Automated (09/11/2022 4:05 AM EDT) Neutrophil % 53.0 % [facility] Neutrophil Absolute 2.39 1.70 - 6.10 x10(3)/[facility] LABORATORY Lymph % 26.4 % [facility] Lymphocytes Abs 1.2 0.9 - 3.2 x10(3)/[facility] LABORATORY Monocyte % 12.4 % [facility] Monocyte Abs 0.6 0.3 - 0.9 x10(3)/[facility] LABORATORY Eos % 6.9 % [facility] Eosinophils Abs 0.3 0.0 - 0.4 x10(3)/[facility] LABORATORY Basophil % 0.9 % [facility] Baso Absolute 0.0 0.0 - 0.1 x10(3)/[facility] LABORATORY Immature Gran % 0.40 % [facility] Comment: Immature granulocytes(IG's)percentage and absolute count will include metamyelocytes, myelocytes, and promyelocytes. Blood smears from CBCs yielding IG's will be scanned manually for concordance. If this scan disagrees with the automated IG or if promyelocytes are noted, a manual differential will be performed. Immature Gran Absolute 0.02 0.00 - 0.04 x10(3)/[facility] LABORATORY Blood 09/11/2022 4:05 AM EDT 09/11/2022 4:12 AM EDT Narrative Resulting Agency Comment Spec In Lab Jigar Streeter [place] [address] * (ABNORMAL) Hemogram (09/11/2022 4:05 AM EDT) White Blood Cell 4.5 4.0 - 9.5 x10(3)/mc L [facility] Red Blood Cell 3.93(L) 4.00 - 5.21 x10(6)/mc L [facility] Hemoglobin 9.0(L) 11.7 - 15.5 g/dL [facility] Hematocrit 30.2(L) 35.7 - 45.8 % [facility] Mean Cell Volume 76.8(L) 82.6 - 94.4 fL [facility] Mean Cell Hemoglobin 22.9(L) 27.1 - 32.0 pg [facility] Mean Cell Hemoglobin Concentration 29.8(L) 31.7 - 35.0 g/dL [facility] Platelet 219 145 - 357 x10(3)/mc L [facility] RDW Standard Deviation 78.3(H) 37.0 - 46.0 fL [facility] RDW coefficient of variation 30.1(H) 11.5 - 14.1 % [facility] Mean Platelet Volume 9.8 7.6 - 12.9 fL [facility] NRBC% auto 0.0 % [facility] NRBC Absolute 0.000 0.000 - 0.000 x10(3)/mc L [facility] Blood 09/11/2022 4:05 AM EDT 09/11/2022 4:12 AM EDT Narrative Resulting Agency Comment Spec In Lab Jigar Streeter MD HEMATOLOGY ORDERABLE S [facility] [place] [address] * Phosphorus (09/11/2022 4:05 AM EDT) Phosphorus 2.8 2.5 - 4.5 mg/dL [facility] Blood 09/11/2022 4:05 AM EDT 09/11/2022 4:12 AM EDT Narrative Resulting Agency Comment Spec In Lab Richard Pascal MD CHEMISTRY ORDERABLES Performing Organization Address City/[facility]/ZIP Co de Phone Number [facility] [place] [address] * (ABNORMAL) Basic Metabolic Panel (non-fasting) (09/11/2022 4:05 AM EDT) Glucose 195 65 - 199 mg/dL [facility] Comment:Diabetes: >=200 mg/d L plus symptoms Blood Urea Nitrogen 6(L) 8 - 18 mg/dL [facility] Creatinine 0.44(L) 0.70 - 1.20 mg/dL [facility] Sodium 143 135 - 145 mmol/L [facility] Potassium 3.4(L) 3.5 - 5.0 mmol/L [facility] Comment: Please note: ??Patients with WBC >100,000 may have falsely elevated Potassium levels. ??For accurate Potassium quantification in these patients send serum separator tube (gold top) for subsequent determinations. ??Contact the Clinical Chemistry Laboratory if there are any questions. Chloride 107 98 - 107 mmol/L [facility] Carbon Dioxide 28 22 - 31 mmol/L [facility] Anion Gap 8 5 - 15 mmol/L [facility] Calcium 8.9 8.5 - 10.5 mg/dL [facility] Est Glomerular Filtration Rate 109 >=60 mL/min/1. 73 m?? [facility] Comment: This patient's estimated GFR was [...] In Lab Richard Pascal MD CHEMISTRY ORDERABLES [facility] [place] [address] * POCT Glucose (09/11/2022 3:56 AM EDT) Glucose, POC 121 65 - 199 mg/dL [facility] Comment: Supplemental ranges: <140 mg/dL before meals <180 mg/dL all other times of the day Blood 09/11/2022 3:56 AM EDT 09/11/2022 3:56 AM EDT Molina Flores MD POINT OF CARE TEST ORDERABLES [facility] [place] [address] * POCT Glucose (09/11/2022 12:03 AM EDT) Glucose, POC 174 65 - 199 mg/dL [facility] Comment: Supplemental ranges: <140 mg/dL before meals <180 mg/dL all other times of the day Blood 09/11/2022 12:0 3 AM EDT 09/11/2022 12:03 AM EDT Molina Flores MD POINT OF CARE TEST ORDERABLES Performing Organization Address City/[facility]/ZIP Co de Phone Number [facility] [place] [address] * POCT Glucose (09/10/2022 7:45 PM EDT) Glucose, POC 142 65 - 199 mg/dL [facility] Comment: Supplemental ranges: <140 mg/dL before meals <180 mg/dL all other times of the day Blood 09/10/2022 7:45 PM EDT 09/10/2022 7:45 PM EDT Molina Flores MD POINT OF CARE TEST ORDERABLES [facility] [place] [address] * POCT Glucose (09/10/2022 4:21 PM EDT) Glucose, POC 141 65 - 199 mg/dL [facility] Comment: Supplemental ranges: <140 mg/dL before meals <180 mg/dL all other times of the day Blood 09/10/2022 4:21 PM EDT 09/10/2022 4:21 PM EDT Molina Flores MD POINT OF CARE TEST ORDERABLES [facility] [place] [address] * POCT Glucose (09/10/2022 3:23 PM EDT) Glucose, POC 188 65 - 199 mg/dL [facility] Comment: Supplemental ranges: <140 mg/dL before meals <180 mg/dL all other times of the day Blood 09/10/2022 3:23 PM EDT 09/10/2022 3:23 PM EDT Molina Flores MD POINT OF CARE TEST ORDERABLES Performing Organization Address City/[facility]/ZIP Co de Phone Number [facility] [place] [address] * POCT Glucose (09/10/2022 2:07 PM EDT) Glucose, POC 166 65 - 199 mg/dL [facility] Comment: Supplemental ranges: <140 mg/dL before meals <180 mg/dL all other times of the day Blood 09/10/2022 2:07 PM EDT 09/10/2022 2:07 PM EDT Molina Flores MD POINT OF CARE TEST ORDERABLES Performing Organization Address City/[facility]/ZIP Co de Phone Number [facility] [place] [address] * POCT Glucose (09/10/2022 11:59 AM EDT) Glucose, POC 165 65 - 199 mg/dL [facility] Comment: Supplemental ranges: <140 mg/dL before meals <180 mg/dL all other times of the day Blood 09/10/2022 11:5 9 AM EDT 09/10/2022 11:59 AM EDT Molina Flores MD POINT [place] [address] * (ABNORMAL) Differential, Automated (09/10/2022 9:20 AM EDT) Neutrophil % 59.6 % [facility] Neutrophil Absolute 3.39 1.70 - 6.10 x10(3)/mc L [facility] Lymph % 21.4 % [facility] Lymphocytes Abs 1.2 0.9 - 3.2 x10(3)/mc L [facility] Monocyte % 11.4 % [facility] Monocyte Abs 0.6 0.3 - 0.9 x10(3)/[facility] LAB[facility] Eos % 6.2 % [facility] Eosinophils Abs 0.4 0.0 - 0.4 x10(3)/[facility] LAB[facility] Basophil % 0.5 % [facility] Baso Absolute 0.0 0.0 - 0.1 x10(3)/ L [facility] Immature Gran % 0.90 % [facility] Comment: Immature granulocytes(IG's)percentage and absolute count will include metamyelocytes, myelocytes, and promyelocytes. Blood smears from CBCs yielding IG's will be scanned manually for concordance. If this scan disagrees with the automated IG or if promyelocytes are noted, a manual differential will be performed. Immature Gran Absolute 0.05(H) 0.00 - 0.04 x10(3)/ L [facility] Blood 09/10/2022 9:20 AM EDT 09/10/2022 10:10 AM EDT Narrative Resulting Agency Comment Spec In Lab Chau Keith MD HEMATOLOGY ORDERABLE S Performing Organization Address City/[facility]/[place] [address] * (ABNORMAL) Hemogram (09/10/2022 9:20 AM EDT) White Blood Cell 5.7 4.0 - 9.5 x10(3)/ L [facility] Red Blood Cell 4.06 4.00 - 5.21 x10(6)/mc L [facility] Comment:Dimorphic RBC popula tion. Hemoglobin 9.2(L) 11.7 - 15.5 g/dL [facility] Hematocrit 31.4(L) 35.7 - 45.8 % [facility] Mean Cell Volume 77.3(L) 82.6 - 94.4 fL [facility] Mean Cell Hemoglobin 22.7(L) 27.1 - 32.0 pg [facility] Mean Cell Hemoglobin Concentration 29.3(L) 31.7 - 35.0 g/dL [facility] Platelet 229 145 - 357 x10(3)/mc L [facility] RDW Standard Deviation Not Measured 37.0 - 46.0 fL [facility] RDW coefficient of variation Not Measured 11.5 - 14.1 % [facility] Mean Platelet Volume 10.5 7.6 - 12.9 fL [facility] NRBC% auto 0.0 % [facility] NRBC Absolute 0.000 0.000 - 0.000 x10(3)/ L [facility] Blood 09/10/2022 9:20 AM EDT 09/10/2022 10:10 AM EDT Narrative Resulting Agency Comment Spec In Lab Chau Keith MD HEMATOLOGY ORDERABLE S [facility] [place] [address] * POCT Glucose (09/10/2022 8:07 AM EDT) Glucose, POC 135 65 - 199 mg/dL [facility] Comment: Supplemental ranges: <140 mg/dL before meals <180 mg/dL all other times of the day Blood 09/10/2022 8:07 AM EDT 09/10/2022 8:07 AM EDT Molina Flores MD POINT OF CARE TEST ORDERABLES [facility] [place] [address] * POCT Glucose (09/10/2022 6:57 AM EDT) Glucose, POC 165 65 - 199 mg/dL [facility] Comment: Supplemental ranges: <140 mg/dL before meals <180 mg/dL all other times of the day Blood 09/10/2022 6:57 AM EDT 09/10/2022 6:57 AM EDT Molina Flores MD POINT OF CARE TEST ORDERABLES Performing Organization Address City/[facility]/ZIP Co de Phone Number [facility] [place] [address] * Phosphorus (09/10/2022 6:00 AM EDT) [facility] Phosphorus 3.3 2.5 - 4.5 mg/dL [facility] Blood 09/10/2022 6:00 AM EDT 09/10/2022 6:13 AM EDT Narrative Resulting Agency Comment Spec In Lab Richard Pascal MD CHEMISTRY ORDERABLES Performing Organization Address [facility] Co de Phone Number [facility] [place] [address] * (ABNORMAL) Magnesium (09/10/2022 6:00 AM EDT) [facility] Magnesium 0.67(L) 0.69 - 1.07 mmol/L [facility] Blood 09/10/2022 6:00 AM EDT 09/10/2022 6:13 AM EDT Narrative Resulting Agency Comment Spec In Lab Richard Pascal MD CHEMISTRY ORDERABLES Performing Organization Address [facility] Co de Phone Number [facility] [place] [address] * (ABNORMAL) Basic Metabolic Panel (non-fasting) (09/10/2022 6:00 AM EDT) Glucose 158 65 - 199 mg/dL [facility] Comment:Diabetes: >=200 mg/d L plus symptoms Blood Urea Nitrogen 11 8 - 18 mg/dL [facility] Creatinine 0.48(L) 0.70 - 1.20 mg/dL [facility] Sodium 140 135 - 145 mmol/L [facility] Potassium 3.7 3.5 - 5.0 mmol/L [facility] Comment: Please note: ??Patients with WBC >100,000 may have falsely elevated Potassium levels. ??For accurate Potassium quantification in these patients send serum separator tube (gold top) for subsequent determinations. ??Contact the Clinical Chemistry Laboratory if there are any questions. Chloride 105 98 - 107 mmol/L [facility] Carbon Dioxide 27 22 - 31 mmol/L [facility] Anion Gap 8 5 - 15 mmol/L [facility] Calcium 9.1 8.5 - 10.5 mg/dL [facility] Est Glomerular Filtration Rate 107 >=60 mL/min/1. 73 m?? [facility] Comment: This patient's estimated GFR was [...] In Lab Richard Pascal MD CHEMISTRY ORDERABLES [facility] [place] [address] * POCT Glucose (09/10/2022 3:40 AM EDT) Glucose, POC 160 65 - 199 mg/dL [facility] Comment: Supplemental ranges: <140 mg/dL before meals <180 mg/dL all other times of the day Blood 09/10/2022 3:40 AM EDT 09/10/2022 3:40 AM EDT Molina Flores MD POINT OF CARE TEST ORDERABLES [facility] [place] [address] * POCT Glucose (09/10/2022 1:44 AM EDT) Glucose, POC 145 65 - 199 mg/dL [facility] Comment: Supplemental ranges: <140 mg/dL before meals <180 mg/dL all other times of the day Blood 09/10/2022 1:44 AM EDT 09/10/2022 1:44 AM EDT Molina Flores MD POINT OF CARE TEST ORDERABLES Performing Organization Address [facility] Co de Phone Number [facility] [place] [address] * XR Abdomen 1 view (Generic) (09/10/2022 [...] who have questions please contact the health pediatric acute care unit nurse that requested your imaging first. ? Electronically signed by: Camille Garcia MD, [facility] ([phone]), at 09/10/2022 1:16 AM Narrative 09/10/2022 1:16 [...] patients who have questions please contactthe health pediatric acute care unit nurse that requested your imaging first. Electronically signed by: Camille Garcia MD, [facility]([phone]), at 09/10/2022 1:16 AM Molina Flores MD IMG DX ORDERABLES * POCT Glucose (09/09/2022 8:09 PM EDT) Glucose, POC 153 65 - 199 mg/dL [facility] Comment: Supplemental ranges: <140 mg/dL before meals <180 mg/dL all other times of the day Blood 09/09/2022 8:09 PM EDT 09/09/2022 8:09 PM EDT Molina Flores MD POINT OF CARE TEST ORDERABLES [facility] [place] [address] * POCT Glucose (09/09/2022 5:20 PM EDT) Glucose, POC 146 65 - 199 mg/dL [facility] Comment: Supplemental ranges: <140 mg/dL before meals <180 mg/dL all other times of the day Blood 09/09/2022 5:20 PM EDT 09/09/2022 5:20 PM EDT Molina Flores MD POINT OF CARE TEST ORDERABLES [facility] [place] [address] * POCT Glucose (09/09/2022 1:18 PM EDT) Glucose, POC 138 65 - 199 mg/dL [facility] Comment: Supplemental ranges: <140 mg/dL before meals <180 mg/dL all other times of the day Blood 09/09/2022 1:18 PM EDT 09/09/2022 1:18 PM EDT Molina Flores MD POINT OF CARE TEST ORDERABLES [facility] [place] [address] * POCT Glucose (09/09/2022 10:10 AM EDT) Glucose, POC 167 65 - 199 mg/dL [facility] Comment: Supplemental ranges: <140 mg/dL before meals <180 mg/dL all other times of the day Blood 09/09/2022 10:1 0 AM EDT 09/09/2022 10:10 AM EDT Molina Flores MD POINT OF CARE TEST ORDERABLES [facility] [place] [address] * POCT Glucose (09/09/2022 6:41 AM EDT) Glucose, POC 150 65 - 199 mg/dL [facility] Comment: Supplemental ranges: <140 mg/dL before meals <180 mg/dL all other times of the day Blood 09/09/2022 6:41 AM EDT 09/09/2022 6:41 AM EDT Molina Flores MD POINT [place] [address] * (ABNORMAL) Differential, Automated (09/09/2022 4:00 AM EDT) Pathologist [facility] Neutrophil % 49.9 % [facility] Neutrophil Absolute 3.43 1.70 - 6.10 x10(3)/mc L [facility] Lymph % 27.9 % [facility] Lymphocytes Abs 1.9 0.9 - 3.2 x10(3)/mc L [facility] Monocyte % 10.2 % [facility] Monocyte Abs 0.7 0.3 - 0.9 x10(3)/mc L [facility] Eos % 10.0 % [facility] Eosinophils Abs 0.7(H) 0.0 - 0.4 x10(3)/mc L [facility] Basophil % 1.0 % [facility] Baso Absolute 0.1 0.0 - 0.1 x10(3)/mc L [facility] Immature Gran % 1.00 % [facility] Comment: Immature granulocytes(IG's)percentage and absolute count will include metamyelocytes, myelocytes, and promyelocytes. Blood smears from CBCs yielding IG's will be scanned manually for concordance. If this scan disagrees with the automated IG or if promyelocytes are noted, a manual differential will be performed. Immature Gran Absolute 0.07(H) 0.00 - 0.04 x10(3)/mc L [facility] Blood 09/09/2022 4:00 AM EDT 09/09/2022 4:18 AM EDT Narrative Resulting Agency Comment Spec In Lab Jigar Streeter MD HEMATOLOGY ORDERABLE S [facility] [place] [address] * (ABNORMAL) Hemogram (09/09/2022 4:00 AM EDT) White Blood Cell 6.9 4.0 - 9.5 x10(3)/ L [facility] Red Blood Cell 4.37 4.00 - 5.21 x10(6)/ L [facility] Comment:Dimorphic RBC popula tion. Hemoglobin 9.8(L) 11.7 - 15.5 g/dL [facility] Hematocrit 33.4(L) 35.7 - 45.8 % [facility] Mean Cell Volume 76.4(L) 82.6 - 94.4 fL [facility] Mean Cell Hemoglobin 22.4(L) 27.1 - 32.0 pg [facility] Mean Cell Hemoglobin Concentration 29.3(L) 31.7 - 35.0 g/dL [facility] Platelet 264 145 - 357 x10(3)/ L [facility] RDW Standard Deviation 79.7(H) 37.0 - 46.0 fL [facility] RDW coefficient of variation 30.7(H) 11.5 - 14.1 % [facility] Mean Platelet Volume 10.0 7.6 - 12.9 fL [facility] NRBC% auto 0.0 % [facility] NRBC Absolute 0.000 0.000 - 0.000 x10(3)/ L [facility] Blood 09/09/2022 4:00 AM EDT 09/09/2022 4:18 AM EDT Narrative Resulting Agency Comment Spec In Lab Jigar Streeter MD HEMATOLOGY ORDERABLE S [facility] [place] [address] * (ABNORMAL) Basic Metabolic Panel (non-fasting) (09/09/2022 4:00 AM EDT) Glucose 139 65 - 199 mg/dL [facility] Comment:Diabetes: >=200 mg/d L plus symptoms Blood Urea Nitrogen 24(H) 8 - 18 mg/dL [facility] Creatinine 0.56(L) 0.70 - 1.20 mg/dL [facility] Sodium 140 135 - 145 mmol/L [facility] Potassium 4.3 3.5 - 5.0 mmol/L [facility] Comment: Please note: ??Patients with WBC >100,000 may have falsely elevated Potassium levels. ??For accurate Potassium quantification in these patients send serum separator tube (gold top) for subsequent determinations. ??Contact the Clinical Chemistry Laboratory if there are any questions. Chloride 102 98 - 107 mmol/L [facility] Carbon Dioxide 28 22 - 31 mmol/L [facility] Anion Gap 10 5 - 15 mmol/L [facility] Calcium 10.1 8.5 - 10.5 mg/dL [facility] Est Glomerular Filtration Rate 103 >=60 mL/min/1. 73 m?? [facility] Comment: This patient's estimated GFR was [...] In Lab Richard Pascal MD CHEMISTRY ORDERABLES [facility] [place] [address] * Phosphorus (09/09/2022 4:00 AM EDT) Phosphorus 4.2 2.5 - 4.5 mg/dL [facility] Blood 09/09/2022 4:00 AM EDT 09/09/2022 4:18 AM EDT Narrative Resulting Agency Comment Spec In Lab Richard Pascal MD CHEMISTRY ORDERABLES Performing Organization Address [facility] Co de Phone Number [facility] [place] [address] * Magnesium (09/09/2022 4:00 AM EDT) Magnesium 0.86 0.69 - 1.07 mmol/L [facility] Blood 09/09/2022 4:00 AM EDT 09/09/2022 4:18 AM EDT Narrative Resulting Agency Comment Spec In Lab Richard Pascal MD CHEMISTRY ORDERABLES Performing Organization Address [facility] de Phone Number [facility] [place] [address] * POCT Glucose (09/09/2022 3:49 AM EDT) Glucose, POC 140 65 - 199 mg/dL [facility] Comment: Supplemental ranges: <140 mg/dL before meals <180 mg/dL all other times of the day Blood 09/09/2022 3:49 AM EDT 09/09/2022 3:49 AM EDT Molina Flores MD POINT OF CARE TEST ORDERABLES Performing Organization Address [facility] Co de Phone Number [facility] [place] [address] * POCT Glucose (09/08/2022 11:53 PM EDT) Glucose, POC 116 65 - 199 mg/dL [facility] Comment: Supplemental ranges: <140 mg/dL before meals <180 mg/dL all other times of the day Blood 09/08/2022 11:5 3 PM EDT 09/08/2022 11:53 PM EDT Molina Flores MD POINT OF CARE TEST ORDERABLES [facility] [place] [address] * POCT Glucose (09/08/2022 7:54 PM EDT) Glucose, POC 182 65 - 199 mg/dL [facility] Comment: Supplemental ranges: <140 mg/dL before meals <180 mg/dL all other times of the day Blood 09/08/2022 7:54 PM EDT 09/08/2022 7:54 PM EDT Molina Flores MD POINT OF CARE TEST ORDERABLES Performing Organization Address City/[facility]/ZIP Co de Phone Number [facility] [place] [address] * POCT Glucose (09/08/2022 4:57 PM EDT) Glucose, POC 119 65 - 199 mg/dL [facility] Comment: Supplemental ranges: <140 mg/dL before meals <180 mg/dL all other times of the day Blood 09/08/2022 4:57 PM EDT 09/08/2022 4:57 PM EDT Molina Flores MD POINT OF CARE TEST ORDERABLES Performing Organization Address City/[facility]/ZIP Co de Phone Number [facility] [place] [address] * POCT Glucose (09/08/2022 6:53 AM EDT) Glucose, POC 134 65 - 199 mg/dL [facility] Comment: Supplemental ranges: <140 mg/dL before meals <180 mg/dL all other times of the day Blood 09/08/2022 6:53 AM EDT 09/08/2022 6:53 AM EDT Richard Pascal MD POINT OF CARE TEST O RDERABLES [facility] [place] [address] * POCT Glucose (09/08/2022 3:57 AM EDT) Glucose, POC 165 65 - 199 mg/dL [facility] Comment: Supplemental ranges: <140 mg/dL before meals <180 mg/dL all other times of the day Blood 09/08/2022 3:57 AM EDT 09/08/2022 3:57 AM EDT Richard Pascal MD POINT OF CARE TEST O RDERABLES [facility] [place] [address] * (ABNORMAL) Differential, Automated (09/08/2022 2:00 AM EDT) [facility] Neutrophil % 49.5 % [facility] Neutrophil Absolute 3.42 1.70 - 6.10 x10(3)/mc L [facility] Lymph % 28.0 % [facility] Lymphocytes Abs 1.9 0.9 - 3.2 x10(3)/mc L [facility] Monocyte % 12.2 % [facility] Monocyte Abs 0.8 0.3 - 0.9 x10(3)/mc L [facility] Eos % 8.7 % [facility] Eosinophils Abs 0.6(H) 0.0 - 0.4 x10(3)/mc L [facility] Basophil % 0.9 % [facility] Baso Absolute 0.1 0.0 - 0.1 x10(3)/mc L [facility] Immature Gran % 0.70 % [facility] Comment: Immature granulocytes(IG's)percentage and absolute count will include metamyelocytes, myelocytes, and promyelocytes. Blood smears from CBCs yielding IG's will be scanned manually for concordance. If this scan disagrees with the automated IG or if promyelocytes are noted, a manual differential will be performed. Immature Gran Absolute 0.05(H) 0.00 - 0.04 x10(3)/mc L [facility] Blood 09/08/2022 2:00 AM EDT 09/08/2022 2:13 AM EDT Narrative Resulting Agency Comment Spec In Lab Jigar Streeter MD HEMATOLOGY ORDERABLE S [facility] [place] [address] * (ABNORMAL) Hemogram (09/08/2022 2:00 AM EDT) White Blood Cell 6.9 4.0 - 9.5 x10(3)/ L [facility] Red Blood Cell 4.34 4.00 - 5.21 x10(6)/mc L [facility] Comment:Dimorphic RBC popula tion. Hemoglobin 9.8(L) 11.7 - 15.5 g/dL [facility] Hematocrit 32.6(L) 35.7 - 45.8 % [facility] Mean Cell Volume 75.1(L) 82.6 - 94.4 fL [facility] Mean Cell Hemoglobin 22.6(L) 27.1 - 32.0 pg [facility] Mean Cell Hemoglobin Concentration 30.1(L) 31.7 - 35.0 g/dL [facility] Platelet 300 145 - 357 x10(3)/ L [facility] RDW Standard Deviation Not Measured 37.0 - 46.0 fL [facility] RDW coefficient of variation Not Measured 11.5 - 14.1 % [facility] Mean Platelet Volume 9.5 7.6 - 12.9 fL [facility] NRBC% auto 0.0 % [facility] NRBC Absolute 0.000 0.000 - 0.000 x10(3)/[facility] Blood 09/08/2022 2:00 AM EDT 09/08/2022 2:13 AM EDT Narrative Resulting Agency Comment Spec In Lab Jigar Streeter MD HEMATOLOGY ORDERABLE S [facility] [place] [address] * (ABNORMAL) Basic Metabolic Panel (non-fasting) (09/08/2022 2:00 AM EDT) Glucose 142 65 - 199 mg/dL [facility] Comment:Diabetes: >=200 mg/d L plus symptoms Blood Urea Nitrogen 25(H) 8 - 18 mg/dL [facility] Creatinine 0.52(L) 0.70 - 1.20 mg/dL [facility] Sodium 142 135 - 145 mmol/L [facility] Potassium 4.6 3.5 - 5.0 mmol/L [facility] Comment: Please note: ??Patients with WBC >100,000 may have falsely elevated Potassium levels. ??For accurate Potassium quantification in these patients send serum separator tube (gold top) for subsequent determinations. ??Contact the Clinical Chemistry Laboratory if there are any questions. Chloride 103 98 - 107 mmol/L [facility] Carbon Dioxide 30 22 - 31 mmol/L [facility] Anion Gap 9 5 - 15 mmol/L [facility] Calcium 10.0 8.5 - 10.5 mg/dL [facility] Est Glomerular Filtration Rate 105 >=60 mL/min/1. 73 m?? [facility] Comment: This patient's estimated GFR was [...] In Lab Richard Pascal MD CHEMISTRY ORDERABLES [facility] [place] [address] * Phosphorus (09/08/2022 2:00 AM EDT) Phosphorus 3.2 2.5 - 4.5 mg/dL [facility] Blood 09/08/2022 2:00 AM EDT 09/08/2022 2:13 AM EDT Narrative Resulting Agency Comment Spec In Lab Richard Pascal MD CHEMISTRY ORDERABLES Performing Organization Address [facility] de Phone Number [facility] [place] [address] * Magnesium (09/08/2022 2:00 AM EDT) Magnesium 0.90 0.69 - 1.07 mmol/L [facility] Blood 09/08/2022 2:00 AM EDT 09/08/2022 2:13 AM EDT Narrative Resulting Agency Comment Spec In Lab Richard Pascal MD CHEMISTRY ORDERABLES Performing Organization Address [facility] de Phone Number [facility] [place] [address] * POCT Glucose (09/07/2022 11:06 PM EDT) Glucose, POC 189 65 - 199 mg/dL [facility] Comment: Supplemental ranges: <140 mg/dL before meals <180 mg/dL all other times of the day Blood 09/07/2022 11:0 6 PM EDT 09/07/2022 11:06 PM EDT Richard Pascal MD POINT OF CARE TEST O RDERABLES Performing Organization Address [facility] Phone Number [facility] [place] [address] * POCT Glucose (09/07/2022 8:21 PM EDT) Glucose, POC 143 65 - 199 mg/dL [facility] Comment: Supplemental ranges: <140 mg/dL before meals <180 mg/dL all other times of the day Blood 09/07/2022 8:21 PM EDT 09/07/2022 8:21 PM EDT Molina Flores MD POINT OF CARE TEST ORDERABLES [facility] [place] [address] * POCT Glucose (09/07/2022 3:54 PM EDT) Glucose, POC 182 65 - 199 mg/dL [facility] Comment: Supplemental ranges: <140 mg/dL before meals <180 mg/dL all other times of the day Blood 09/07/2022 3:54 PM EDT 09/07/2022 3:54 PM EDT Molina Flores MD POINT OF CARE TEST ORDERABLES Performing Organization Address [facility] Co de Phone Number [facility] [place] [address] * POCT Glucose (09/07/2022 11:26 AM EDT) Glucose, POC 153 65 - 199 mg/dL [facility] Comment: Supplemental ranges: <140 mg/dL before meals <180 mg/dL all other times of the day Blood 09/07/2022 11:2 6 AM EDT 09/07/2022 11:26 AM EDT Molina Flores MD POINT OF CARE TEST ORDERABLES Performing Organization Address [facility] Co de Phone Number [facility] [place] [address] * POCT Glucose (09/07/2022 7:46 AM EDT) Glucose, POC 150 65 - 199 mg/dL [facility] Comment: Supplemental ranges: <140 mg/dL before meals <180 mg/dL all other times of the day Blood 09/07/2022 7:46 AM EDT 09/07/2022 7:46 AM EDT Richard Pascal MD POINT OF CARE TEST O RDERABLES Performing Organization Address City/[facility]/ZIP Co de Phone Number [facility] [place] [address] * EKG 12 Lead (09/07/2022 6:35 AM EDT) Ventricular rate 72 BPM MUSE SYSTEM Atrial Rate 72 BPM MUSE SYSTEM P-R Interval 148 ms MUSE SYSTEM QRS Duration 72 ms MUSE SYSTEM Q-T Interval 416 ms MUSE SYSTEM QTC Calculated (Bezet) 455 ms MUSE SYSTEM Calculated P Pinon 53 degrees MUSE SYSTEM Calculated R Pinon 86 degrees MUSE SYSTEM Calculated T Pinon 149 degrees MUSE SYSTEM INTERPRETATION Normal sinus rhythm with sinus arrhythmia Low voltage QRS T wave abnormality, consider anterolateral ischemia Abnormal ECG When compared with ECG of 01-SEP-2022 02:24, No significant change was found I personally reviewed the tracing and edited the fellows interpretation Confirmed by fellow Niurka Rose ([id number]) on 09/07/2022 8:45:34 AM Confirmed by MD ALEJANDRA, RICHARD ([id number]) on 09/07/2022 1:55:43 PM MUSE SYSTEM 09/07/2022 6:35 AM EDT 09/07/2022 1:55 PM EDT Richard Pascal MD ECG ORDERABLES MUSE SYSTEM * POCT Glucose (09/07/2022 4:08 AM EDT) [facility] Glucose, POC 135 65 - 199 mg/dL [facility] Comment: Supplemental ranges: <140 mg/dL before meals <180 mg/dL all other times of the day Blood 09/07/2022 4:08 AM EDT 09/07/2022 4:08 AM EDT Richard Pascal MD POINT OF CARE TEST O RDERABLES [facility] [place] [address] * (ABNORMAL) Differential, Automated (09/07/2022 12:30 AM EDT) Pathologist [facility] Neutrophil % 43.6 % [facility] Neutrophil Absolute 2.71 1.70 - 6.10 x10(3)/mc L [facility] Lymph % 33.3 % [facility] Lymphocytes Abs 2.1 0.9 - 3.2 x10(3)/[facility] Monocyte % 11.6 % [facility] Monocyte Abs 0.7 0.3 - 0.9 x10(3)/[facility] Eos % 9.5 % [facility] Eosinophils Abs 0.6(H) 0.0 - 0.4 x10(3)/[facility] Basophil % 1.4 % [facility] Baso Absolute 0.1 0.0 - 0.1 x10(3)/[facility] Immature Gran % 0.60 % [facility] Comment: Immature granulocytes(IG's)percentage and absolute count will include metamyelocytes, myelocytes, and promyelocytes. Blood smears from CBCs yielding IG's will be scanned manually for concordance. If this scan disagrees with the automated IG or if promyelocytes are noted, a manual differential will be performed. Immature Gran Absolute 0.04 0.00 - 0.04 x10(3)/[facility] Blood 09/07/2022 12:3 0 AM EDT 09/07/2022 12:54 AM EDT Narrative Resulting Agency Comment Spec In Lab Jigar Streeter MD HEMATOLOGY ORDERABLE S Performing Organization Address City/State/[facility] Co de Phone Number [facility] [place] [address] * (ABNORMAL) Hemogram (09/07/2022 12:30 AM EDT) White Blood Cell 6.2 4.0 - 9.5 x10(3)/[facility] Red Blood Cell 4.11 4.00 - 5.21 x10(6)/[facility] Hemoglobin 9.1(L) 11.7 - 15.5 g/dL [facility] Hematocrit 30.5(L) 35.7 - 45.8 % [facility] Mean Cell Volume 74.2(L) 82.6 - 94.4 fL [facility] Mean Cell Hemoglobin 22.1(L) 27.1 - 32.0 pg [facility] Mean Cell Hemoglobin Concentration 29.8(L) 31.7 - 35.0 g/dL [facility] Platelet 286 145 - 357 x10(3)/mc L [facility] RDW Standard Deviation Not Measured 37.0 - 46.0 fL [facility] RDW coefficient of variation Not Measured 11.5 - 14.1 % [facility] Mean Platelet Volume 9.6 7.6 - 12.9 fL [facility] NRBC% auto 0.0 % [facility] NRBC Absolute 0.000 0.000 - 0.000 x10(3)/mc L [facility] Blood 09/07/2022 12:3 0 AM EDT 09/07/2022 12:54 AM EDT Narrative Resulting Agency Comment Spec In Lab Jigar Streeter MD HEMATOLOGY ORDERABLE S [facility] [place] [address] * (ABNORMAL) Basic Metabolic Panel (non-fasting) (09/07/2022 12:30 AM EDT) Glucose 144 65 - 199 mg/dL [facility] Comment:Diabetes: >=200 mg/d L plus symptoms Blood Urea Nitrogen 22(H) 8 - 18 mg/dL [facility] Creatinine 0.53(L) 0.70 - 1.20 mg/dL [facility] Sodium 138 135 - 145 mmol/L [facility] Potassium 4.6 3.5 - 5.0 mmol/L [facility] Comment: Please note: ??Patients with WBC >100,000 may have falsely elevated Potassium levels. ??For accurate Potassium quantification in these patients send serum separator tube (gold top) for subsequent determinations. ??Contact the Clinical Chemistry Laboratory if there are any questions. Chloride 103 98 - 107 mmol/L [facility] Carbon Dioxide 29 22 - 31 mmol/L [facility] Anion Gap 6 5 - 15 mmol/L [facility] Calcium 9.4 8.5 - 10.5 mg/dL [facility] Est Glomerular Filtration Rate 105 >=60 mL/min/1. 73 m?? [facility] Comment: This patient's estimated [...] Pascal MD CHEMISTRY ORDERABLES Performing Organization Address City/[facility] Co de Phone Number [facility] [place] [address] * Phosphorus (09/07/2022 12:30 AM EDT) Phosphorus 3.0 2.5 - 4.5 mg/dL [facility] Blood 09/07/2022 12:3 0 AM EDT 09/07/2022 12:54 AM EDT Narrative Resulting Agency Comment Spec In Lab Richard Pascal MD CHEMISTRY ORDERABLES Performing Organization Address [facility] Co de Phone Number [facility] [place] [address] * Magnesium (09/07/2022 12:30 AM EDT) Magnesium 0.86 0.69 - 1.07 mmol/L [facility] Blood 09/07/2022 12:3 0 AM EDT 09/07/2022 12:54 AM EDT Narrative Resulting Agency Comment Spec In Lab Richard Pascal MD CHEMISTRY ORDERABLES Performing Organization Address City/[facility] Co de Phone Number [facility] [place] [address] * POCT Glucose (09/07/2022 12:29 AM EDT) Glucose, POC 127 65 - 199 mg/dL [facility] Comment: Supplemental ranges: <140 mg/dL before meals <180 mg/dL all other times of the day Blood 09/07/2022 12:2 9 AM EDT 09/07/2022 12:29 AM EDT Richard Pascal MD POINT OF CARE TEST O RDERAREYMUNDO [facility] [place] [address] * POCT Glucose (09/06/2022 9:54 PM EDT) Glucose, POC 184 65 - 199 mg/dL [facility] Comment: Supplemental ranges: <140 mg/dL before meals <180 mg/dL all other times of the day Blood 09/06/2022 9:54 PM EDT 09/06/2022 9:54 PM EDT Richard Pascal MD POINT OF CARE TEST O GABRIELLA Performing Organization Address [facility] Co de Phone Number [facility] [place] [address] * POCT Glucose (09/06/2022 4:46 PM EDT) Glucose, POC 177 65 - 199 mg/dL [facility] Comment: Supplemental ranges: <140 mg/dL before meals <180 mg/dL all other times of the day Blood 09/06/2022 4:46 PM EDT 09/06/2022 4:46 PM EDT Richard Pascal MD POINT OF CARE TEST O RDERAREYMUNDO [facility] [place] [address] * POCT Glucose (09/06/2022 12:57 PM EDT) Glucose, POC 176 65 - 199 mg/dL [facility] Comment: Supplemental ranges: <140 mg/dL before meals <180 mg/dL all other times of the day Blood 09/06/2022 12:5 7 PM EDT 09/06/2022 12:57 PM EDT Richard Pascal MD POINT OF CARE TEST O RDERABLES Performing Organization Address [facility] Co de Phone Number [facility] [place] [address] * POCT Glucose (09/06/2022 9:06 AM EDT) Glucose, POC 162 65 - 199 mg/dL [facility] Comment: Supplemental ranges: <140 mg/dL before meals <180 mg/dL all other times of the day Blood 09/06/2022 9:06 AM EDT 09/06/2022 9:06 AM EDT Richard Pascal MD POINT OF CARE TEST O RDERABLES Performing Organization Address [facility] Co de Phone Number [facility] [place] [address] * POCT Glucose (09/06/2022 3:39 AM EDT) Glucose, POC 102 65 - 199 mg/dL [facility] Comment: Supplemental ranges: <140 mg/dL before meals <180 mg/dL all other times of the day Blood 09/06/2022 3:39 AM EDT 09/06/2022 3:39 AM EDT Richard Pascal MD POINT OF CARE TEST O RDERABLES Performing Organization Address [facility] Co de Phone Number [facility] [place] [address] * (ABNORMAL) Differential, Automated (09/06/2022 1:00 AM EDT) Neutrophil % 41.9 % [facility] Neutrophil Absolute 2.64 1.70 - 6.10 x10(3)/mc L [facility] Lymph % 36.2 % [facility] Lymphocytes Abs 2.3 0.9 - 3.2 x10(3)/mc L [facility] Monocyte % 12.5 % [facility] Monocyte Abs 0.8 0.3 - 0.9 x10(3)/mc L [facility] Eos % 7.6 % [facility] Eosinophils Abs 0.5(H) 0.0 - 0.4 x10(3)/mc L [facility] Basophil % 1.3 % [facility] Baso Absolute 0.1 0.0 - 0.1 x10(3)/mc L [facility] Immature Gran % 0.50 % [facility] Comment: Immature granulocytes(IG's)percentage and absolute count will include metamyelocytes, myelocytes, and promyelocytes. Blood smears from CBCs yielding IG's will be scanned manually for concordance. If this scan disagrees with the automated IG or if promyelocytes are noted, a manual differential will be performed. Immature Gran Absolute 0.03 0.00 - 0.04 x10(3)/ L [facility] Blood 09/06/2022 1:00 AM EDT 09/06/2022 1:34 AM EDT Narrative Resulting Agency Comment Spec In Lab Tyler Cobb MD HEMATOLOGY ORDERABLE S [facility] [place] [address] * (ABNORMAL) Hemogram (09/06/2022 1:00 AM EDT) White Blood Cell 6.3 4.0 - 9.5 x10(3)/mc L [facility] Red Blood Cell 3.92(L) 4.00 - 5.21 x10(6)/mc L [facility] Comment:Dimorphic RBC popula tion. Hemoglobin 8.6(L) 11.7 - 15.5 g/dL [facility] Hematocrit 29.0(L) 35.7 - 45.8 % [facility] Mean Cell Volume 74.0(L) 82.6 - 94.4 fL [facility] Mean Cell Hemoglobin 21.9(L) 27.1 - 32.0 pg [facility] Mean Cell Hemoglobin Concentration 29.7(L) 31.7 - 35.0 g/dL [facility] Platelet 297 145 - 357 x10(3)/mc L [facility] RDW Standard Deviation Not Measured 37.0 - 46.0 fL [facility] RDW coefficient of variation Not Measured 11.5 - 14.1 % [facility] Mean Platelet Volume 9.8 7.6 - 12.9 fL [facility] NRBC% auto 0.0 % [facility] NRBC Absolute 0.000 0.000 - 0.000 x10(3)/mc L [facility] Blood 09/06/2022 1:00 AM EDT 09/06/2022 1:34 AM EDT Narrative Resulting Agency Comment Spec In Lab Tyler Cobb MD HEMATOLOGY ORDERABLE S [facility] [place] [address] * (ABNORMAL) Basic Metabolic Panel (non-fasting) (09/06/2022 1:00 AM EDT) Glucose 95 65 - 199 mg/dL [facility] Comment:Diabetes: >=200 mg/d L plus symptoms Blood Urea Nitrogen 21(H) 8 - 18 mg/dL [facility] Creatinine 0.49(L) 0.70 - 1.20 mg/dL [facility] Sodium 139 135 - 145 mmol/L [facility] Potassium 4.3 3.5 - 5.0 mmol/L [facility] Comment: Please note: ??Patients with WBC >100,000 may have falsely elevated Potassium levels. ??For accurate Potassium quantification in these patients send serum separator tube (gold top) for subsequent determinations. ??Contact the Clinical Chemistry Laboratory if there are any questions. Chloride 104 98 - 107 mmol/L [facility] Carbon Dioxide 28 22 - 31 mmol/L [facility] Anion Gap 7 5 - 15 mmol/L [facility] Calcium 9.5 8.5 - 10.5 mg/dL [facility] Est Glomerular Filtration Rate 106 >=60 mL/min/1. 73 m?? [facility] Comment: This patient's estimated GFR was [...] Pascal MD CHEMISTRY ORDERABLES Performing Organization Address City/[facility] Co de Phone Number [facility] [place] [address] * Phosphorus (09/06/2022 1:00 AM EDT) Phosphorus 3.6 2.5 - 4.5 mg/dL [facility] Blood 09/06/2022 1:00 AM EDT 09/06/2022 1:34 AM EDT Narrative Resulting Agency Comment Spec In Lab Richard Pascal MD CHEMISTRY ORDERABLES Performing Organization Address [facility] Co de Phone Number [facility] [place] [address] * Magnesium (09/06/2022 1:00 AM EDT) Magnesium 0.81 0.69 - 1.07 mmol/L [facility] Blood 09/06/2022 1:00 AM EDT 09/06/2022 1:34 AM EDT Narrative Resulting Agency Comment Spec In Lab Richrad Pascal MD CHEMISTRY ORDERABLES Performing Organization Address [facility] Co de Phone Number [facility] [place] [address] * POCT Glucose (09/05/2022 11:29 PM EDT) Glucose, POC 94 65 - 199 mg/dL [facility] Comment: Supplemental ranges: <140 mg/dL before meals <180 mg/dL all other times of the day Blood 09/05/2022 11:2 9 PM EDT 09/05/2022 11:29 PM EDT Richard Pascal MD POINT OF CARE TEST O RDERAREYMUNDO [facility] [place] [address] * POCT Glucose (09/05/2022 10:20 PM EDT) Glucose, POC 106 65 - 199 mg/dL [facility] Comment: Supplemental ranges: <140 mg/dL before meals <180 mg/dL all other times of the day Blood 09/05/2022 10:2 0 PM EDT 09/05/2022 10:20 PM EDT Richard Pascal MD POINT OF CARE TEST O HUGHERAREYMUNDO Performing Organization Address City/[facility]/ZIP Co de Phone Number [facility] [place] [address] * (ABNORMAL) POCT Glucose (09/05/2022 7:17 PM EDT) Glucose, POC 225(H) 65 - 199 mg/dL [facility] Comment: Supplemental ranges: <140 mg/dL before meals <180 mg/dL all other times of the day Blood 09/05/2022 7:17 PM EDT 09/05/2022 7:17 PM EDT Richard Pascal MD POINT OF CARE TEST O RDERAREYMUNDO [facility] [place] [address] * POCT Glucose (09/05/2022 3:54 PM EDT) Glucose, POC 142 65 - 199 mg/dL [facility] Comment: Supplemental ranges: <140 mg/dL before meals <180 mg/dL all other times of the day Blood 09/05/2022 3:54 PM EDT 09/05/2022 3:54 PM EDT Richard Pascal MD POINT OF CARE TEST O RDERABLES Performing Organization Address [facility] Co de Phone Number [facility] [place] [address] * POCT Glucose (09/05/2022 12:44 PM EDT) Glucose, POC 142 65 - 199 mg/dL [facility] Comment: Supplemental ranges: <140 mg/dL before meals <180 mg/dL all other times of the day Blood 09/05/2022 12:4 4 PM EDT 09/05/2022 12:44 PM EDT Richard Pascal MD POINT OF CARE TEST O RDERABLES Performing Organization Address [facility] Co de Phone Number [facility] [place] [address] * POCT Glucose (09/05/2022 9:51 AM EDT) Glucose, POC 173 65 - 199 mg/dL [facility] Comment: Supplemental ranges: <140 mg/dL before meals <180 mg/dL all other times of the day Blood 09/05/2022 9:51 AM EDT 09/05/2022 9:51 AM EDT Richard Pascal MD POINT OF CARE TEST O RDERABLES Performing Organization Address [facility] Co de Phone Number [facility] [place] [address] * XR Chest One View (09/05/2022 9:24 AM EDT) Anatomical Region Laterality Modality Chest N/A Digital Radiogra phy Impressions 09/05/2022 3:43 PM EDT 1. Reposition enteric tube now extending below the diaphragm and included zbcil-[id number]. 2. Similar appearance of elevated right hemidiaphragm and linear/patchy bibasilar opacities which may represent atelectasis or possibly aspiration. Thank you for letting us participate in the care of this patient. ??If you are a health care provider and have any questions regarding this report, please contact the number below. ??For patients who have questions please contact the health pediatric acute care unit nurse that requested your imaging first. ? Electronically signed by: AUDI PERDOMO MD, [facility] ??([phone]), at 09/05/2022 3:43 PM Narrative 09/05/2022 3:43 [...] now extending below the diaphragm and included [id number]. Similar appearance of mild elevation of the [...] tube now extendingbelow the diaphragm and included idqqr-qx-rvip. Similar appearance of mild elevation of the right hemidiaphragm withstreaky right basilar opacities and some mild patchy opacities at the left lungbase. No new focal airspace opacity. No appreciable pleural fluid collection. No pneumothorax. Cardiomediastinal silhouette is unchanged. No evidence of pulmonary edema. No acute osseous abnormality. IMPRESSION 1. Reposition enteric tube now extending below the diaphragm andincluded pulve-am-rddw. 2. Similar appearance of elevated right hemidiaphragm and linear/patchy bibasilar opacities which may represent atelectasis or possiblyaspiration. Thank you for letting us participate in the care of this patient. If youare a health care provider and have any questions regarding this report,please contact the number below. For patients who have questions please contactthe health pediatric acute care unit nurse that requested your imaging first. Electronically signed by: AUDI PERDOMO MD, [facility]([phone]), at 09/05/2022 3:43 PM Richard Pascal MD IMG DX ORDERABLES * POCT Glucose (09/05/2022 4:10 AM EDT) Glucose, POC 162 65 - 199 mg/dL [facility] Comment: Supplemental ranges: <140 mg/dL before meals <180 mg/dL all other times of the day Blood 09/05/2022 4:10 AM EDT 09/05/2022 4:10 AM EDT Tenisha Sandy MD POINT OF CARE MARIANELA T ORDERABLES Performing Organization Address [facility] [place] [address] * POCT Glucose (09/05/2022 1:18 AM EDT) Glucose, POC 98 65 - 199 mg/dL [facility] Comment: Supplemental ranges: <140 mg/dL before meals <180 mg/dL all other times of the day Blood 09/05/2022 1:18 AM EDT 09/05/2022 1:18 AM EDT Tenisha Sandy MD POINT OF C[place] [address] * Differential, Automated (09/05/2022 1:06 AM EDT) Neutrophil % 38.7 % [facility] Neutrophil Absolute 1.88 1.70 - 6.10 x10(3)/[facility] LAB[facility]AT[facility] Lymph % 35.9 % [facility] Lymphocytes Abs 1.8 0.9 - 3.2 x10(3)/[facility] LAB[facility] Monocyte % 14.2 % [facility] Monocyte Abs 0.7 0.3 - 0.9 x10(3)/[facility] LAB[facility] Eos % 9.2 % [facility] Eosinophils Abs 0.4 0.0 - 0.4 x10(3)/[facility] Basophil % 1.6 % [facility] Baso Absolute 0.1 0.0 - 0.1 x10(3)/[facility] Immature Gran % 0.40 % [facility] Comment: Immature granulocytes(IG's)percentage and absolute count will include metamyelocytes, myelocytes, and promyelocytes. Blood smears from CBCs yielding IG's will be scanned manually for concordance. If this scan disagrees with the automated IG or if promyelocytes are noted, a manual differential will be performed. Immature Gran Absolute 0.02 0.00 - 0.04 x10(3)/[facility] LAB[facility] Blood 09/05/2022 1:06 AM EDT 09/05/2022 1:20 AM EDT Narrative Resulting Agency Comment Spec In Lab Tyler Cobb MD [place] [address] * (ABNORMAL) Hemogram (09/05/2022 1:06 AM EDT) Pathologist [facility] White Blood Cell 4.9 4.0 - 9.5 x10(3)/mc L [facility] Red Blood Cell 3.93(L) 4.00 - 5.21 x10(6)/[facility] Comment:Dimorphic RBC popula tion. Hemoglobin 8.7(L) 11.7 - 15.5 g/dL [facility] Hematocrit 29.0(L) 35.7 - 45.8 % [facility] Mean Cell Volume 73.8(L) 82.6 - 94.4 fL [facility] Mean Cell Hemoglobin 22.1(L) 27.1 - 32.0 pg [facility] Mean Cell Hemoglobin Concentration 30.0(L) 31.7 - 35.0 g/dL [facility] Platelet 314 145 - 357 x10(3)/mc L [facility] RDW Standard Deviation Not Measured 37.0 - 46.0 fL [facility] RDW coefficient of variation Not Measured 11.5 - 14.1 % [facility] Mean Platelet Volume 9.8 7.6 - 12.9 fL [facility] NRBC% auto 0.0 % [facility] NRBC Absolute 0.000 0.000 - 0.000 x10(3)/mc L [facility] Blood 09/05/2022 1:06 AM EDT 09/05/2022 1:20 AM EDT Narrative Resulting Agency Comment Spec In Lab Tyler Cobb MD HEMATOLOGY ORDERABLE S [facility] [place] [address] * (ABNORMAL) Basic Metabolic Panel (non-fasting) (09/05/2022 1:06 AM EDT) Glucose 95 65 - 199 mg/dL [facility] Comment:Diabetes: >=200 mg/d L plus symptoms Blood Urea Nitrogen 21(H) 8 - 18 mg/dL [facility] Creatinine 0.49(L) 0.70 - 1.20 mg/dL [facility] Sodium 140 135 - 145 mmol/L [facility] Potassium 3.8 3.5 - 5.0 mmol/L [facility] Comment: Please note: ??Patients with WBC >100,000 may have falsely elevated Potassium levels. ??For accurate Potassium quantification in these patients send serum separator tube (gold top) for subsequent determinations. ??Contact the Clinical Chemistry Laboratory if there are any questions. Chloride 103 98 - 107 mmol/L [facility] Carbon Dioxide 28 22 - 31 mmol/L [facility] Anion Gap 9 5 - 15 mmol/L [facility] Calcium 9.5 8.5 - 10.5 mg/dL [facility] Est Glomerular Filtration Rate 106 >=60 mL/min/1. 73 m?? [facility] Comment: This patient's estimated GFR was [...] In Lab Richard Pascal MD CHEMISTRY ORDERABLES [facility] [place] [address] * Phosphorus (09/05/2022 1:06 AM EDT) Phosphorus 3.9 2.5 - 4.5 mg/dL [facility] Blood 09/05/2022 1:06 AM EDT 09/05/2022 1:20 AM EDT Narrative Resulting Agency Comment Spec In Lab Richard Pascal MD CHEMISTRY ORDERABLES [facility] [place] [address] * Magnesium (09/05/2022 1:06 AM EDT) Magnesium 0.91 0.69 - 1.07 mmol/L [facility] Blood 09/05/2022 1:06 AM EDT 09/05/2022 1:20 AM EDT Narrative Resulting Agency Comment Spec In Lab Richard Pascal MD CHEMISTRY ORDERABLES Performing Organization Address City/[facility]/ZIP Co de Phone Number [facility] [place] [address] * POCT Glucose (09/04/2022 10:16 PM EDT) Glucose, POC 138 65 - 199 mg/dL [facility] Comment: Supplemental ranges: <140 mg/dL before meals <180 mg/dL all other times of the day Blood 09/04/2022 10:1 6 PM EDT 09/04/2022 10:16 PM EDT Tenisha Sandy MD POINT OF CARE MARIANELA T ORDERABLES Performing Organization Address [facility] Co de Phone Number [facility] [place] [address] * XR Abdomen 1 view (Generic) (09/04/2022 [...] who have questions please contact the health pediatric acute care unit nurse that requested your imaging first. ? Electronically signed by: Jagdeep Lee MD, [facility] ([phone]), at 09/04/2022 10:35 PM Narrative 09/04/2022 10:35 PM EDT EXAMINATION: XR [...] patients who have questions please contactthe health pediatric acute care unit nurse that requested your imaging first. Tenisha Sandy [...] who have questions please contact the health pediatric acute care unit nurse that requested your imaging first. ? Electronically signed by: Jagdeep Lee MD, [facility] ([phone]), at 09/04/2022 10:35 PM Narrative 09/04/2022 10:35 PM EDT EXAMINATION: XR [...] patients who have questions please contactthe health pediatric acute care unit nurse that requested your imaging first. Tenisha Sandy MD IMG DX ORDERABLES * POCT Glucose (09/04/2022 8:49 PM EDT) Glucose, POC 73 65 - 199 mg/dL [facility] Comment: Supplemental ranges: <140 mg/dL before meals <180 mg/dL all other times of the day Blood 09/04/2022 8:49 PM EDT 09/04/2022 8:49 PM EDT Tenisha Sandy MD POINT OF CARE MARIANELA T ORDERABLES Performing Organization Address City/[facility]/ZIP Co de Phone Number [facility] [place] [address] * POCT Glucose (09/04/2022 5:20 PM EDT) Glucose, POC 136 65 - 199 mg/dL [facility] Comment: Supplemental ranges: <140 mg/dL before meals <180 mg/dL all other times of the day Blood 09/04/2022 5:20 PM EDT 09/04/2022 5:20 PM EDT Tenisha Sandy MD POINT OF CARE MARIANELA T ORDERABLES Performing Organization Address [facility] Co de Phone Number [facility] [place] [address] * (ABNORMAL) POCT Glucose (09/04/2022 4:39 PM EDT) Glucose, POC 64(L) 65 - 199 mg/dL [facility] Comment: Supplemental ranges: <140 mg/dL before meals <180 mg/dL all other times of the day Blood 09/04/2022 4:39 PM EDT 09/04/2022 4:39 PM EDT Tenisha Sandy MD POINT OF CARE MARIANELA T ORDERABLES Performing Organization Address [facility] Co de Phone Number [facility] [place] [address] * POCT Glucose (09/04/2022 3:21 PM EDT) Glucose, POC 68 65 - 199 mg/dL [facility] Comment: Supplemental ranges: <140 mg/dL before meals <180 mg/dL all other times of the day Blood 09/04/2022 3:21 PM EDT 09/04/2022 3:21 PM EDT Tenisha Sandy MD POINT OF CARE MARIANELA T ORDERABLES Performing Organization Address City/[facility]/ZIP Co de Phone Number [facility] [place] [address] * POCT Glucose (09/04/2022 11:07 AM EDT) Glucose, POC 107 65 - 199 mg/dL [facility] Comment: Supplemental ranges: <140 mg/dL before meals <180 mg/dL all other times of the day Blood 09/04/2022 11:0 7 AM EDT 09/04/2022 11:07 AM EDT Tenisha Sandy MD POINT OF CARE MARIANELA T ORDERABLES [facility] [place] [address] * XR Fluoro Barium Swallow (Modified/Video Swallow [...] who have questions please contact the health pediatric acute care unit nurse that requested your imaging first. ? Electronically signed by: Alfonso Admas MD, [facility] ([phone]), at 09/04/2022 10:57 AM Narrative 09/04/2022 10:57 [...] patients who have questions please contactthe health pediatric acute care unit nurse that requested your imaging first. Electronically signed by: Alfonso Adams MD, [facility]([phone]), at 09/04/2022 10:57 AM Tenisha Sandy MD IMG FLUORO ORDERA BLES * POCT Glucose (09/04/2022 7:18 AM EDT) Glucose, POC 106 65 - 199 mg/dL [facility] Comment: Supplemental ranges: <140 mg/dL before meals <180 mg/dL all other times of the day Blood 09/04/2022 7:18 AM EDT 09/04/2022 7:18 AM EDT Tenisha Sandy MD POINT OF CARE MARIANELA T ORDERABLES [facility] [place] [address] * POCT Glucose (09/04/2022 3:35 AM EDT) Glucose, POC 107 65 - 199 mg/dL [facility] Comment: Supplemental ranges: <140 mg/dL before meals <180 mg/dL all other times of the day Blood 09/04/2022 3:35 AM EDT 09/04/2022 3:35 AM EDT Tenisha Sandy MD POINT OF CARE MARIANELA T ORDERABLES [facility] [place] [address] * Differential, Automated (09/04/2022 12:26 AM EDT) Neutrophil % 60.2 % [facility] Neutrophil Absolute 4.05 1.70 - 6.10 x10(3)/mcL [facility] Lymph % 27.4 % [facility] Lymphocytes Abs 1.8 0.9 - 3.2 x10(3)/[facility] Monocyte % 5.4 % [facility] Monocyte Abs 0.4 0.3 - 0.9 x10(3)/[facility] Eos % 5.4 % [facility] Eosinophils Abs 0.4 0.0 - 0.4 x10(3)/[facility] Basophil % 1.3 % [facility] Baso Absolute 0.1 0.0 - 0.1 x10(3)/[facility] Immature Gran % 0.30 % [facility] Comment: Immature granulocytes(IG's)percentage and absolute count will include metamyelocytes, myelocytes, and promyelocytes. Blood smears from CBCs yielding IG's will be scanned manually for concordance. If this scan disagrees with the automated IG or if promyelocytes are noted, a manual differential will be performed. Immature Gran Absolute 0.02 0.00 - 0.04 x10(3)/[facility] Blood 09/04/2022 12:2 6 AM EDT 09/04/2022 12:38 AM EDT Narrative Resulting Agency Comment Spec In Lab Tyler Cobb MD HEMATOLOGY ORDERABLE S [facility] [place] [address] * (ABNORMAL) Hemogram (09/04/2022 12:26 AM EDT) White Blood Cell 6.7 4.0 - 9.5 x10(3)/mc L [facility] Red Blood Cell 3.83(L) 4.00 - 5.21 x10(6)/[facility] Comment:Dimorphic RBC popula tion. Hemoglobin 8.5(L) 11.7 - 15.5 g/dL [facility] Hematocrit 28.1(L) 35.7 - 45.8 % [facility] Mean Cell Volume 73.4(L) 82.6 - 94.4 fL [facility] Mean Cell Hemoglobin 22.2(L) 27.1 - 32.0 pg [facility] Mean Cell Hemoglobin Concentration 30.2(L) 31.7 - 35.0 g/dL [facility] Platelet 300 145 - 357 x10(3)/mc L [facility] RDW Standard Deviation Not Measured 37.0 - 46.0 fL [facility] RDW coefficient of variation Not Measured 11.5 - 14.1 % [facility] Mean Platelet Volume 9.9 7.6 - 12.9 fL [facility] NRBC% auto 0.0 % [facility] NRBC Absolute 0.000 0.000 - 0.000 x10(3)/mc L [facility] Blood 09/04/2022 12:2 6 AM EDT 09/04/2022 12:38 AM EDT Narrative Resulting Agency Comment Spec In Lab Tyler Cobb MD HEMATOLOGY ORDERABLE S Performing Organization Address City/State/[facility] Co de Phone Number [facility] [place] [address] * (ABNORMAL) Basic Metabolic Panel (non-fasting) (09/04/2022 12:26 AM EDT) Glucose 131 65 - 199 mg/dL [facility] Comment:Diabetes: >=200 mg/d L plus symptoms Blood Urea Nitrogen 30(H) 8 - 18 mg/dL [facility] Creatinine 0.53(L) 0.70 - 1.20 mg/dL [facility] Sodium 141 135 - 145 mmol/L [facility] Potassium 4.3 3.5 - 5.0 mmol/L [facility] Comment: Please note: ??Patients with WBC >100,000 may have falsely elevated Potassium levels. ??For accurate Potassium quantification in these patients send serum separator tube (gold top) for subsequent determinations. ??Contact the Clinical Chemistry Laboratory if there are any questions. Chloride 104 98 - 107 mmol/L [facility] Carbon Dioxide 29 22 - 31 mmol/L [facility] Anion Gap 8 5 - 15 mmol/L [facility] Calcium 9.4 8.5 - 10.5 mg/dL [facility] Est Glomerular Filtration Rate 105 >=60 mL/min/1. 73 m?? [facility] Comment: This patient's estimated GFR was [...] Pascal MD CHEMISTRY ORDERABLES Performing Organization Address [facility] Co de Phone Number [facility] [place] [address] * Phosphorus (09/04/2022 12:26 AM EDT) Phosphorus 3.2 2.5 - 4.5 mg/dL [facility] Blood 09/04/2022 12:2 6 AM EDT 09/04/2022 12:38 AM EDT Narrative Resulting Agency Comment Spec In Lab Richard Pascal MD CHEMISTRY ORDERABLES Performing Organization Address City/[facility] Co de Phone Number [facility] [place] [address] * Magnesium (09/04/2022 12:26 AM EDT) Magnesium 0.88 0.69 - 1.07 mmol/L [facility] Blood 09/04/2022 12:2 6 AM EDT 09/04/2022 12:38 AM EDT Narrative Resulting Agency Comment Spec In Lab Richard Pascal MD CHEMISTRY ORDERABLES Performing Organization Address City/[facility]/ZIP Co de Phone Number [facility] [place] [address] * POCT Glucose (09/04/2022 12:19 AM EDT) Glucose, POC 125 65 - 199 mg/dL [facility] Comment: Supplemental ranges: <140 mg/dL before meals <180 mg/dL all other times of the day Blood 09/04/2022 12:1 9 AM EDT 09/04/2022 12:19 AM EDT Tenisha Sandy MD POINT OF CARE MARIANELA T ORDERABLES [facility] [place] [address] * POCT Glucose (09/03/2022 7:30 PM EDT) Glucose, POC 166 65 - 199 mg/dL [facility] Comment: Supplemental ranges: <140 mg/dL before meals <180 mg/dL all other times of the day Blood 09/03/2022 7:30 PM EDT 09/03/2022 7:30 PM EDT Tenisha Sandy MD POINT OF CARE MARIANELA T ORDERABLES Performing Organization Address City/[facility] Co de Phone Number [facility] [place] [address] * (ABNORMAL) POCT Glucose (09/03/2022 4:00 PM EDT) Glucose, POC 207(H) 65 - 199 mg/dL [facility] Comment: Supplemental ranges: <140 mg/dL before meals <180 mg/dL all other times of the day Blood 09/03/2022 4:00 PM EDT 09/03/2022 4:00 PM EDT Tenisha Sandy MD POINT OF CARE MARIANELA T ORDERABLES Performing Organization Address City/[facility] Co de Phone Number [facility] [place] [address] * (ABNORMAL) POCT Glucose (09/03/2022 12:43 PM EDT) Glucose, POC 207(H) 65 - 199 mg/dL [facility] Comment: Supplemental ranges: <140 mg/dL before meals <180 mg/dL all other times of the day Blood 09/03/2022 12:4 3 PM EDT 09/03/2022 12:43 PM EDT Tenisha Sandy MD POINT OF CARE MARIANELA T ORDERABLES Performing Organization Address City/[facility] Co de Phone Number [facility] [place] [address] * POCT Glucose (09/03/2022 7:48 AM EDT) Glucose, POC 173 65 - 199 mg/dL [facility] Comment: Supplemental ranges: <140 mg/dL before meals <180 mg/dL all other times of the day Blood 09/03/2022 7:48 AM EDT 09/03/2022 7:48 AM EDT Tenisha Sandy MD POINT OF CARE MARIANELA T ORDERABLES Performing Organization Address [facility] Co de Phone Number [facility] [place] [address] * POCT Glucose (09/03/2022 4:52 AM EDT) Glucose, POC 91 65 - 199 mg/dL [facility] Comment: Supplemental ranges: <140 mg/dL before meals <180 mg/dL all other times of the day Blood 09/03/2022 4:52 AM EDT 09/03/2022 4:52 AM EDT Tenisha Sandy MD POINT OF CARE MARIANELA T ORDERABLES Performing Organization Address City/[facility] Co de Phone Number [facility] [place] [address] * Differential, Automated (09/03/2022 12:40 AM EDT) Neutrophil % 42.9 % [facility] Neutrophil Absolute 2.19 1.70 - 6.10 x10(3)/mcL [facility] Lymph % 38.0 % [facility] Lymphocytes Abs 1.9 0.9 - 3.2 x10(3)/[facility] LABORATORY Monocyte % 11.6 % [facility] Monocyte Abs 0.6 0.3 - 0.9 x10(3)/[facility] LABORATORY Eos % 5.7 % [facility] Eosinophils Abs 0.3 0.0 - 0.4 x10(3)/[facility] LABORATORY Basophil % 1.6 % [facility] Baso Absolute 0.1 0.0 - 0.1 x10(3)/[facility] LABORATORY Immature Gran % 0.20 % [facility] Comment: Immature granulocytes(IG's)percentage and absolute count will include metamyelocytes, myelocytes, and promyelocytes. Blood smears from CBCs yielding IG's will be scanned manually for concordance. If this scan disagrees with the automated IG or if promyelocytes are noted, a manual differential will be performed. Immature Gran Absolute 0.01 0.00 - 0.04 x10(3)/[facility] LABORATORY Blood 09/03/2022 12:4 0 AM EDT 09/03/2022 12:51 AM EDT Narrative Resulting Agency Comment Spec In Lab Tyler Cobb MD HEMATOLOGY ORDERABLE S [facility] [place] [address] * (ABNORMAL) Hemogram (09/03/2022 12:40 AM EDT) White Blood Cell 5.1 4.0 - 9.5 x10(3)/mc L [facility] Red Blood Cell 3.75(L) 4.00 - 5.21 x10(6)/ L [facility] Comment:Dimorphic RBC popula tion. Hemoglobin 8.4(L) 11.7 - 15.5 g/dL [facility] Hematocrit 27.1(L) 35.7 - 45.8 % [facility] Mean Cell Volume 72.3(L) 82.6 - 94.4 fL [facility] Mean Cell Hemoglobin 22.4(L) 27.1 - 32.0 pg [facility] Mean Cell Hemoglobin Concentration 31.0(L) 31.7 - 35.0 g/dL [facility] Platelet 305 145 - 357 x10(3)/mc L [facility] RDW Standard Deviation Not Measured 37.0 - 46.0 fL [facility] RDW coefficient of variation Not Measured 11.5 - 14.1 % [facility] Mean Platelet Volume 9.8 7.6 - 12.9 fL [facility] NRBC% auto 0.0 % [facility] NRBC Absolute 0.000 0.000 - 0.000 x10(3)/mc L [facility] Blood 09/03/2022 12:4 0 AM EDT 09/03/2022 12:51 AM EDT Narrative Resulting Agency Comment Spec In Lab Tyler Cobb MD HEMATOLOGY ORDERABLE S Performing Organization Address City/State/[facility] Co de Phone Number [facility] [place] [address] * (ABNORMAL) Basic Metabolic Panel (non-fasting) (09/03/2022 12:40 AM EDT) Glucose 107 65 - 199 mg/dL [facility] Comment:Diabetes: >=200 mg/d L plus symptoms Blood Urea Nitrogen 28(H) 8 - 18 mg/dL [facility] Creatinine 0.49(L) 0.70 - 1.20 mg/dL [facility] Sodium 138 135 - 145 mmol/L [facility] Potassium 4.1 3.5 - 5.0 mmol/L [facility] Comment: Please note: ??Patients with WBC >100,000 may have falsely elevated Potassium levels. ??For accurate Potassium quantification in these patients send serum separator tube (gold top) for subsequent determinations. ??Contact the Clinical Chemistry Laboratory if there are any questions. Chloride 102 98 - 107 mmol/L [facility] Carbon Dioxide 29 22 - 31 mmol/L [facility] Anion Gap 7 5 - 15 mmol/L [facility] Calcium 9.2 8.5 - 10.5 mg/dL [facility] Est Glomerular Filtration Rate 106 >=60 mL/min/1. 73 m?? [facility] Comment: This patient's estimated GFR was [...] Pascal MD CHEMISTRY ORDERABLES Performing Organization Address [facility] Co de Phone Number [facility] [place] [address] * Phosphorus (09/03/2022 12:40 AM EDT) Phosphorus 3.4 2.5 - 4.5 mg/dL [facility] Blood 09/03/2022 12:4 0 AM EDT 09/03/2022 12:51 AM EDT Narrative Resulting Agency Comment Spec In Lab Richard Pascal MD CHEMISTRY ORDERABLES Performing Organization Address [facility] Co de Phone Number [facility] [place] [address] * Magnesium (09/03/2022 12:40 AM EDT) Magnesium 0.96 0.69 - 1.07 mmol/L [facility] Blood 09/03/2022 12:4 0 AM EDT 09/03/2022 12:51 AM EDT Narrative Resulting Agency Comment Spec In Lab Richard Pascal MD CHEMISTRY ORDERABLES Performing Organization Address [facility] Co de Phone Number [facility] [place] [address] * POCT Glucose (09/02/2022 11:05 PM EDT) Glucose, POC 106 65 - 199 mg/dL [facility] Comment: Supplemental ranges: <140 mg/dL before meals <180 mg/dL all other times of the day Blood 09/02/2022 11:0 5 PM EDT 09/02/2022 11:05 PM EDT Tenisha Sandy MD POINT OF CARE MARIANELA T ORDERABLES Performing Organization Address City/[facility] Co de Phone Number [facility] [place] [address] * POCT Glucose (09/02/2022 8:05 PM EDT) Glucose, POC 107 65 - 199 mg/dL [facility] Comment: Supplemental ranges: <140 mg/dL before meals <180 mg/dL all other times of the day Blood 09/02/2022 8:05 PM EDT 09/02/2022 8:05 PM EDT Tenisha Sandy MD POINT OF CARE MARIANELA T ORDERABLES Performing Organization Address [facility] Co de Phone Number [facility] [place] [address] * POCT Glucose (09/02/2022 4:22 PM EDT) Glucose, POC 183 65 - 199 mg/dL [facility] Comment: Supplemental ranges: <140 mg/dL before meals <180 mg/dL all other times of the day Blood 09/02/2022 4:22 PM EDT 09/02/2022 4:22 PM EDT Tenisha Sandy MD POINT OF CARE MARIANELA T ORDERABLES Performing Organization Address City/[facility] Co de Phone Number [facility] [place] [address] * POCT Glucose (09/02/2022 12:22 PM EDT) Glucose, POC 194 65 - 199 mg/dL [facility] Comment: Supplemental ranges: <140 mg/dL before meals <180 mg/dL all other times of the day Blood 09/02/2022 12:2 2 PM EDT 09/02/2022 12:22 PM EDT Tenisha Sandy MD POINT OF CARE MARIANELA T ORDERABLES Performing Organization Address City/[facility] Co de Phone Number [facility] [place] [address] * POCT Glucose (09/02/2022 7:49 AM EDT) Glucose, POC 141 65 - 199 mg/dL [facility] Comment: Supplemental ranges: <140 mg/dL before meals <180 mg/dL all other times of the day Blood 09/02/2022 7:49 AM EDT 09/02/2022 7:49 AM EDT Tenisha Sandy MD POINT OF CARE MARIANELA T ORDERABLES Performing Organization Address [facility] Co de Phone Number [facility] [place] [address] * POCT Glucose (09/02/2022 5:43 AM EDT) Glucose, POC 102 65 - 199 mg/dL [facility] Comment: Supplemental ranges: <140 mg/dL before meals <180 mg/dL all other times of the day Blood 09/02/2022 5:43 AM EDT 09/02/2022 5:43 AM EDT Tenisha Sandy MD POINT OF CARE MARIANELA T ORDERABLES Performing Organization Address City/[facility] Co de Phone Number [facility] [place] [address] * POCT Glucose (09/02/2022 3:44 AM EDT) Glucose, POC 112 65 - 199 mg/dL [facility] Comment: Supplemental ranges: <140 mg/dL before meals <180 mg/dL all other times of the day Blood 09/02/2022 3:44 AM EDT 09/02/2022 3:44 AM EDT Tenisha Sandy MD POINT OF CARE MARIANELA T ORDERABLES Performing Organization Address [facility] [place] [address] * (ABNORMAL) Reticulocyte Count (09/02/2022 1:05 AM EDT) Pathologist [facility] Reticulocyte % 2.2 0.7 - 2.5 % [facility] Retic Abs # 0.080 0.020 - 0.110 x10(6)/[facility] LAB[facility]AT[facility] Immature Retic% 45.2(H) 0.5 - 13.8 % [facility] Reticulated Hgb 22.9(L) 29.8 - 39.4 pg [facility] Blood Venous Draw / Unknown 09/02/2022 1:05 AM EDT 09/02/2022 1:19 AM EDT Narrative Resulting Agency Comment Spec In Lab Irwin Jones MD HEMATOLOGY ORDERAB LES Performing Organization Address [facility] Co de Phone Number [facility] [place] [address] * Differential, Automated (09/02/2022 1:05 AM EDT) Neutrophil % 48.4 % [facility] Neutrophil Absolute 2.83 1.70 - 6.10 x10(3)/[facility] LAB[facility] Lymph % 34.6 % [facility] Lymphocytes Abs 2.0 0.9 - 3.2 x10(3)/[facility] Monocyte % 10.4 % [facility] Monocyte Abs 0.6 0.3 - 0.9 x10(3)/[facility] Eos % 4.8 % [facility] Eosinophils Abs 0.3 0.0 - 0.4 x10(3)/[facility] Basophil % 1.5 % [facility] Baso Absolute 0.1 0.0 - 0.1 x10(3)/[facility]AT[facility] Immature Gran % 0.30 % [facility] Comment: Immature granulocytes(IG's)percentage and absolute count will include metamyelocytes, myelocytes, and promyelocytes. Blood smears from CBCs yielding IG's will be scanned manually for concordance. If this scan disagrees with the automated IG or if promyelocytes are noted, a manual differential will be performed. Immature Gran Absolute 0.02 0.00 - 0.04 x10(3)/mcL [facility] Blood 09/02/2022 1:05 AM EDT 09/02/2022 1:19 AM EDT Narrative Resulting Agency Comment Spec In Lab Tyler Cobb MD HEMATOLOGY ORDERABLE S [facility] [place] [address] * (ABNORMAL) Hemogram (09/02/2022 1:05 AM EDT) White Blood Cell 5.9 4.0 - 9.5 x10(3)/mc L [facility] Red Blood Cell 3.81(L) 4.00 - 5.21 x10(6)/mc L [facility] Comment: CORRECTION: ADDING COMMENT : Dimorphic RBC population. Corrected from 3.81 x10(6)/mcL [LOW] on 09/02/22 11:26:40 EDT by Jigar Palmer Hemoglobin 8.3(L) 11.7 - 15.5 g/dL [facility] Hematocrit 27.7(L) 35.7 - 45.8 % [facility] Mean Cell Volume 72.7(L) 82.6 - 94.4 fL [facility] Mean Cell Hemoglobin 21.8(L) 27.1 - 32.0 pg [facility] Mean Cell Hemoglobin Concentration 30.0(L) 31.7 - 35.0 g/dL [facility] Platelet 344 145 - 357 x10(3)/mc L [facility] RDW Standard Deviation Not Measured 37.0 - 46.0 fL [facility] RDW coefficient of variation Not Measured 11.5 - 14.1 % [facility] Mean Platelet Volume 9.8 7.6 - 12.9 fL [facility] NRBC% auto 0.0 % [facility] NRBC Absolute 0.000 0.000 - 0.000 x10(3)/mc L [facility] Blood 09/02/2022 1:05 AM EDT 09/02/2022 1:19 AM EDT Narrative Resulting Agency Comment Spec In Lab Tyler Cobb MD HEMATOLOGY ORDERABLE S [facility] [address] [place] [address] * (ABNORMAL) Basic Metabolic Panel (non-fasting) (09/02/2022 1:05 AM EDT) Glucose 114 65 - 199 mg/dL [facility] Comment:Diabetes: >=200 mg/d L plus symptoms Blood Urea Nitrogen 30(H) 8 - 18 mg/dL [facility] Creatinine 0.52(L) 0.70 - 1.20 mg/dL [facility] Sodium 136 135 - 145 mmol/L [facility] Potassium 4.4 3.5 - 5.0 mmol/L [facility] Comment: Please note: ??Patients with WBC >100,000 may have falsely elevated Potassium levels. ??For accurate Potassium quantification in these patients send serum separator tube (gold top) for subsequent determinations. ??Contact the Clinical Chemistry Laboratory if there are any questions. Chloride 100 98 - 107 mmol/L [facility] Carbon Dioxide 30 22 - 31 mmol/L [facility] Anion Gap 6 5 - 15 mmol/L [facility] Calcium 9.5 8.5 - 10.5 mg/dL [facility] Est Glomerular Filtration Rate 105 >=60 mL/min/1. 73 m?? [facility] Comment: This patient's estimated GFR was [...] Pascal MD CHEMISTRY ORDERABLES Performing Organization Address City/[facility] Co de Phone Number [facility] [place] [address] * Phosphorus (09/02/2022 1:05 AM EDT) Phosphorus 3.9 2.5 - 4.5 mg/dL [facility] Blood 09/02/2022 1:05 AM EDT 09/02/2022 1:19 AM EDT Narrative Resulting Agency Comment Spec In Lab Richard Pascal MD CHEMISTRY ORDERABLES Performing Organization Address [facility] Co de Phone Number [facility] [place] [address] * Magnesium (09/02/2022 1:05 AM EDT) Magnesium 0.87 0.69 - 1.07 mmol/L [facility] Blood 09/02/2022 1:05 AM EDT 09/02/2022 1:19 AM EDT Narrative Resulting Agency Comment Spec In Lab Richard Pascal MD CHEMISTRY ORDERABLES Performing Organization Address [facility] Co de Phone Number [facility] [place] [address] * POCT Glucose (09/02/2022 12:51 AM EDT) Glucose, POC 110 65 - 199 mg/dL [facility] Comment: Supplemental ranges: <140 mg/dL before meals <180 mg/dL all other times of the day Blood 09/02/2022 12:5 1 AM EDT 09/02/2022 12:51 AM EDT Tenisha Sandy MD POINT OF CARE MARIANELA T ORDERABLES Performing Organization Address [facility] [facility] Co de Phone Number [facility] [place] [address] * POCT Glucose (09/01/2022 8:11 PM EDT) Glucose, POC 93 65 - 199 mg/dL [facility] Comment: Supplemental ranges: <140 mg/dL before meals <180 mg/dL all other times of the day Blood 09/01/2022 8:11 PM EDT 09/01/2022 8:11 PM EDT Tenisha Sandy MD POINT OF CARE MARIANELA T ORDERABLES [facility] [place] [address] * POCT Glucose (09/01/2022 5:41 PM EDT) Glucose, POC 170 65 - 199 mg/dL [facility] Comment: Supplemental ranges: <140 mg/dL before meals <180 mg/dL all other times of the day Blood 09/01/2022 5:41 PM EDT 09/01/2022 5:41 PM EDT Tenisha Sandy MD POINT OF CARE MARIANELA T ORDERABLES [facility] [place] [address] * POCT Glucose (09/01/2022 11:33 AM EDT) Glucose, POC 171 65 - 199 mg/dL [facility] Comment: Supplemental ranges: <140 mg/dL before meals <180 mg/dL all other times of the day Blood 09/01/2022 11:3 3 AM EDT 09/01/2022 11:33 AM EDT Tenisha Sandy MD POINT OF CARE MARIANELA T ORDERABLES [facility] [place] [address] * POCT Glucose (09/01/2022 7:55 AM EDT) Glucose, POC 166 65 - 199 mg/dL [facility] Comment: Supplemental ranges: <140 mg/dL before meals <180 mg/dL all other times of the day Blood 09/01/2022 7:55 AM EDT 09/01/2022 7:55 AM EDT Tenisha Sandy MD POINT OF CARE MARIANELA T ORDERABLES Performing Organization Address [facility] Co de Phone Number [facility] [place] [address] * POCT Glucose (09/01/2022 3:29 AM EDT) Glucose, POC 87 65 - 199 mg/dL [facility] Comment: Supplemental ranges: <140 mg/dL before meals <180 mg/dL all other times of the day Blood 09/01/2022 3:29 AM EDT 09/01/2022 3:29 AM EDT Tenisha Sandy MD POINT OF CARE MARIANELA T ORDERABLES Performing Organization Address [facility] Co de Phone Number [facility] [place] [address] * EKG 12 Lead (09/01/2022 2:24 AM EDT) Ventricular rate 80 BPM MUSE SYSTEM Atrial Rate 80 BPM MUSE SYSTEM P-R Interval 150 ms MUSE SYSTEM QRS Duration 76 ms MUSE SYSTEM Q-T Interval 412 ms MUSE SYSTEM QTC Calculated (Bezet) 475 ms MUSE SYSTEM Calculated P Pinon 50 degrees MUSE SYSTEM Calculated R Pinon 70 degrees MUSE SYSTEM Calculated T Pinon 174 degrees MUSE SYSTEM INTERPRETATION Normal sinus [...] PM EDT Tenisha Sandy MD ECG ORDERABLES MUSE SYSTEM * Scan, Peripheral Blood (09/01/2022 2:10 AM EDT) Plat estimate Increased [facility]ITAL LAB[facility]ORY RBC Morphology Abnormal [facility] HOSPITAL LAB[facility]ORY Macrocyte 1-5 /HPF [facility] HOSPI [facility] Microcyte 6-10 /HPF [facility] HOSPI [facility] Hypochromia Slight [facility] HOS PITAL LABORATORY Polychromasia Present >5/HPF [facility]SPITAL LABORATORY Ovalocytes 1-5 /HPF [facility] HOSP ITAL LABORATORY Target Cells 1-5 /HPF [facility] HO SPITAL LABORATORY Mcfarland Cells 6-10 /HPF [facility] ITAL LABORATORY Plat, Giant Less than 1 /HPF [facility] OSPITAL LABORATORY Blood 09/01/2022 2:10 AM EDT 09/01/2022 2:15 AM EDT Narrative Resulting Agency Comment Spec In Lab Tyler Cobb MD HEMATOLOGY ORDERABLE S [facility] [place] [address] * Differential, Automated (09/01/2022 2:10 AM EDT) Neutrophil % 46.0 % [facility] Neutrophil Absolute 2.52 1.70 - 6.10 x10(3)/[facility] LABORATORY Lymph % 37.1 % [facility] Lymphocytes Abs 2.0 0.9 - 3.2 x10(3)/[facility] LABORATORY Monocyte % 10.1 % [facility] Monocyte Abs 0.6 0.3 - 0.9 x10(3)/[facility] LABORATORY Eos % 5.3 % [facility] Eosinophils Abs 0.3 0.0 - 0.4 x10(3)/[facility] LABORATORY Basophil % 1.3 % [facility] Baso Absolute 0.1 0.0 - 0.1 x10(3)/[facility] LABORATORY Immature Gran % 0.20 % [facility] Comment: Immature granulocytes(IG's)percentage and absolute count will include metamyelocytes, myelocytes, and promyelocytes. Blood smears from CBCs yielding IG's will be scanned manually for concordance. If this scan disagrees with the automated IG or if promyelocytes are noted, a manual differential will be performed. Immature Gran Absolute 0.01 0.00 - 0.04 x10(3)/mcL [facility] Blood 09/01/2022 2:10 AM EDT 09/01/2022 2:15 AM EDT Narrative Resulting Agency Comment Spec In Lab Tyler Cobb MD HEMATOLOGY ORDERABLE S [facility] [place] [address] * (ABNORMAL) Hemogram (09/01/2022 2:10 AM EDT) White Blood Cell 5.5 4.0 - 9.5 x10(3)/[facility] LABORATORY Red Blood Cell 3.95(L) 4.00 - 5.21 x10(6)/[facility] LABORATORY Comment:Dimorphic RBC popula tion. Hemoglobin 8.7(L) 11.7 - 15.5 g/dL [facility] Hematocrit 28.5(L) 35.7 - 45.8 % [facility] Mean Cell Volume 72.2(L) 82.6 - 94.4 fL [facility] Mean Cell Hemoglobin 22.0(L) 27.1 - 32.0 pg [facility] Mean Cell Hemoglobin Concentration 30.5(L) 31.7 - 35.0 g/dL [facility] Platelet 361(H) 145 - 357 x10(3)/[facility] LABORATORY RDW Standard Deviation Not Measured 37.0 - 46.0 fL [facility] RDW coefficient of variation Not Measured 11.5 - 14.1 % [facility] Mean Platelet Volume 9.5 7.6 - 12.9 fL [facility] NRBC% auto 0.0 % [facility] ITAL LABORATORY NRBC Absolute 0.000 0.000 - 0.000 x10(3)/ L [facility] Blood 09/01/2022 2:10 AM EDT 09/01/2022 2:15 AM EDT Narrative Resulting Agency Comment Spec In Lab Tyler Cobb MD HEMATOLOGY ORDERABLE S [facility] [place] [address] * (ABNORMAL) Basic Metabolic Panel (non-fasting) (09/01/2022 2:10 AM EDT) Glucose 86 65 - 199 mg/dL [facility] Comment:Diabetes: >=200 mg/d L plus symptoms Blood Urea Nitrogen 29(H) 8 - 18 mg/dL [facility] Creatinine 0.51(L) 0.70 - 1.20 mg/dL [facility] Sodium 140 135 - 145 mmol/L [facility] Potassium 4.6 3.5 - 5.0 mmol/L [facility] Comment: Please note: ??Patients with WBC >100,000 may have falsely elevated Potassium levels. ??For accurate Potassium quantification in these patients send serum separator tube (gold top) for subsequent determinations. ??Contact the Clinical Chemistry Laboratory if there are any questions. Chloride 104 98 - 107 mmol/L [facility] Carbon Dioxide 29 22 - 31 mmol/L [facility] Anion Gap 7 5 - 15 mmol/L [facility] Calcium 9.4 8.5 - 10.5 mg/dL [facility] Est Glomerular Filtration Rate 105 >=60 mL/min/1. 73 m?? [facility] Comment: This patient's estimated GFR was [...] In Lab Richard Pascal MD CHEMISTRY ORDERABLES [facility] [place] [address] * Phosphorus (09/01/2022 2:10 AM EDT) Phosphorus 4.3 2.5 - 4.5 mg/dL [facility] Blood 09/01/2022 2:10 AM EDT 09/01/2022 2:15 AM EDT Narrative Resulting Agency Comment Spec In Lab Richard Pascal MD CHEMISTRY ORDERABLES Performing Organization Address [facility] Co de Phone Number [facility] [place] [address] * Magnesium (09/01/2022 2:10 AM EDT) Magnesium 0.94 0.69 - 1.07 mmol/L [facility] Blood 09/01/2022 2:10 AM EDT 09/01/2022 2:15 AM EDT Narrative Resulting Agency Comment Spec In Lab Richard Pascal MD CHEMISTRY ORDERABLES Performing Organization Address [facility] Co de Phone Number [facility] [place] [address] * POCT Glucose (08/31/2022 11:46 PM EDT) Glucose, POC 93 65 - 199 mg/dL [facility] Comment: Supplemental ranges: <140 mg/dL before meals <180 mg/dL all other times of the day Blood 08/31/2022 11:4 6 PM EDT 08/31/2022 11:46 PM EDT Tenisha Sandy MD POINT OF CARE MARIANELA T ORDERABLES Performing Organization Address City/[facility]/ZIP Co de Phone Number [facility] [place] [address] * POCT Glucose (08/31/2022 8:12 PM EDT) Glucose, POC 110 65 - 199 mg/dL [facility] Comment: Supplemental ranges: <140 mg/dL before meals <180 mg/dL all other times of the day Blood 08/31/2022 8:12 PM EDT 08/31/2022 8:12 PM EDT Tenisha Sandy MD POINT OF CARE MARIANELA T ORDERABLES Performing Organization Address City/[facility] Co de Phone Number [facility] [place] [address] * (ABNORMAL) POCT Glucose (08/31/2022 4:32 PM EDT) Glucose, POC 206(H) 65 - 199 mg/dL [facility] Comment: Supplemental ranges: <140 mg/dL before meals <180 mg/dL all other times of the day Blood 08/31/2022 4:32 PM EDT 08/31/2022 4:32 PM EDT Tenisha Sandy MD POINT OF CARE MARIANELA T ORDERABLES Performing Organization Address City/[facility] Co de Phone Number [facility] [place] [address] * POCT Glucose (08/31/2022 11:42 AM EDT) Glucose, POC 163 65 - 199 mg/dL [facility] Comment: Supplemental ranges: <140 mg/dL before meals <180 mg/dL all other times of the day Blood 08/31/2022 11:4 2 AM EDT 08/31/2022 11:42 AM EDT Tenisha Sandy MD POINT OF CARE MARIANELA T ORDERABLES Performing Organization Address City/[facility] Co de Phone Number [facility] [place] [address] * XR Fluoro Barium Swallow (Modified/Video Swallow [...] who have questions please contact the health pediatric acute care unit nurse that requested your imaging first. ? Electronically signed by: Aron Billings MD, [facility] ([phone]), at 08/31/2022 12:02 PM Narrative 08/31/2022 12:02 [...] There is delayed elevation of the larynx mcfp between the vallecula and piriform sinuses. It [...] There is delayed elevation of the larynx mcfp between the valleculaand piriform sinuses. It is [...] patients who have questions please contactthe health pediatric acute care unit nurse that requested your imaging first. Electronically signed by: Aron Billings MD, [facility]([phone]), at 08/31/2022 12:02 PM Milagros Hernandez MD IMG FLUORO ORDERABLE S * POCT Glucose (08/31/2022 7:36 AM EDT) Glucose, POC 116 65 - 199 mg/dL [facility] Comment: Supplemental ranges: <140 mg/dL before meals <180 mg/dL all other times of the day Blood 08/31/2022 7:36 AM EDT 08/31/2022 7:36 AM EDT Alfonso Navarrete MD POINT OF CARE TEST O RDERABLES [facility] [place] [address] * Differential, Automated (08/31/2022 4:30 AM EDT) Neutrophil % 59.8 % [facility] Neutrophil Absolute 4.03 1.70 - 6.10 x10(3)/[facility] LABORATORY Lymph % 26.3 % [facility] LABORATORY Lymphocytes Abs 1.8 0.9 - 3.2 x10(3)/[facility] LABORATORY Monocyte % 7.9 % [facility] Monocyte Abs 0.5 0.3 - 0.9 x10(3)/[facility] LABORATORY Eos % 4.7 % [facility] LABORATORY Eosinophils Abs 0.3 0.0 - 0.4 x10(3)/[facility] LABORATORY Basophil % 1.0 % [facility] Baso Absolute 0.1 0.0 - 0.1 x10(3)/[facility] LABORATORY Immature Gran % 0.30 % [facility] Comment: Immature granulocytes(IG's)percentage and absolute count will include metamyelocytes, myelocytes, and promyelocytes. Blood smears from CBCs yielding IG's will be scanned manually for concordance. If this scan disagrees with the automated IG or if promyelocytes are noted, a manual differential will be performed. Immature Gran Absolute 0.02 0.00 - 0.04 x10(3)/[facility] LABORATORY Blood 08/31/2022 4:30 AM EDT 08/31/2022 4:36 AM EDT Narrative Resulting Agency Comment Spec In Lab Tyler Cobb MD HEMATOLOGY ORDERABLE S [facility] [place] [address] * (ABNORMAL) Hemogram (08/31/2022 4:30 AM EDT) White Blood Cell 6.7 4.0 - 9.5 x10(3)/mc L [facility] Red Blood Cell 3.97(L) 4.00 - 5.21 x10(6)/mc L [facility] Comment:Dimorphic RBC popula tion. Hemoglobin 8.7(L) 11.7 - 15.5 g/dL [facility] Hematocrit 29.2(L) 35.7 - 45.8 % [facility] Mean Cell Volume 73.6(L) 82.6 - 94.4 fL [facility] Mean Cell Hemoglobin 21.9(L) 27.1 - 32.0 pg [facility] Mean Cell Hemoglobin Concentration 29.8(L) 31.7 - 35.0 g/dL [facility] Platelet 330 145 - 357 x10(3)/mc L [facility] RDW Standard Deviation Not Measured 37.0 - 46.0 fL [facility] RDW coefficient of variation Not Measured 11.5 - 14.1 % [facility] Mean Platelet Volume 9.8 7.6 - 12.9 fL [facility] NRBC% auto 0.0 % [facility] NRBC Absolute 0.000 0.000 - 0.000 x10(3)/mc L [facility] Blood 08/31/2022 4:30 AM EDT 08/31/2022 4:36 AM EDT Narrative Resulting Agency Comment Spec In Lab Tyler Cobb MD HEMATOLOGY ORDERABLE S Performing Organization Address [facility] Co de Phone Number [facility] [place] [address] * Phosphorus (08/31/2022 4:30 AM EDT) Phosphorus 3.4 2.5 - 4.5 mg/dL [facility] Blood 08/31/2022 4:30 AM EDT 08/31/2022 4:36 AM EDT Narrative Resulting Agency Comment Spec In Lab Richard Pascal MD CHEMISTRY ORDERABLES Performing Organization Address City/[facility] Co de Phone Number [facility] [place] [address] * Magnesium (08/31/2022 4:30 AM EDT) Magnesium 0.81 0.69 - 1.07 mmol/L [facility] Blood 08/31/2022 4:30 AM EDT 08/31/2022 4:36 AM EDT Narrative Resulting Agency Comment Spec In Lab Richard Pascal MD CHEMISTRY ORDERABLES [facility] [place] [address] * POCT Glucose (08/31/2022 4:08 AM EDT) Glucose, POC 88 65 - 199 mg/dL [facility] Comment: Supplemental ranges: <140 mg/dL before meals <180 mg/dL all other times of the day Blood 08/31/2022 4:08 AM EDT 08/31/2022 4:08 AM EDT Alfonso Navarrete MD POINT OF CARE TEST O RDERABLES Performing Organization Address [facility] Co de Phone Number [facility] [place] [address] * POCT Glucose (08/31/2022 12:03 AM EDT) Glucose, POC 98 65 - 199 mg/dL [facility] Comment: Supplemental ranges: <140 mg/dL before meals <180 mg/dL all other times of the day Blood 08/31/2022 12:0 3 AM EDT 08/31/2022 12:03 AM EDT Alfonso Navarrete MD POINT OF CARE TEST O RDERABLES Performing Organization Address [facility] Co de Phone Number [facility] [place] [address] * POCT Glucose (08/30/2022 7:58 PM EDT) Glucose, POC 131 65 - 199 mg/dL [facility] Comment: Supplemental ranges: <140 mg/dL before meals <180 mg/dL all other times of the day Blood 08/30/2022 7:58 PM EDT 08/30/2022 7:58 PM EDT Alfonso Navarrete MD POINT OF CARE TEST O RDERABLES Performing Organization Address City/[facility]/ZIP Co de Phone Number [facility] [place] [address] * POCT Glucose (08/30/2022 4:59 PM EDT) Glucose, POC 169 65 - 199 mg/dL [facility] Comment: Supplemental ranges: <140 mg/dL before meals <180 mg/dL all other times of the day Blood 08/30/2022 4:59 PM EDT 08/30/2022 4:59 PM EDT Roland Pruett MD POINT OF CARE TEST O RDERABLES Performing Organization Address City/[facility]/ZIP Co de Phone Number [facility] [place] [address] * POCT Glucose (08/30/2022 11:29 AM EDT) Glucose, POC 168 65 - 199 mg/dL [facility] Comment: Supplemental ranges: <140 mg/dL before meals <180 mg/dL all other times of the day Blood 08/30/2022 11:2 9 AM EDT 08/30/2022 11:29 AM EDT Roland Pruett MD POINT OF CARE TEST O RDERAREYMUNDO Performing Organization Address City/[facility] Co de Phone Number [facility] [place] [address] * POCT Glucose (08/30/2022 8:59 AM EDT) Glucose, POC 160 65 - 199 mg/dL [facility] Comment: Supplemental ranges: <140 mg/dL before meals <180 mg/dL all other times of the day Blood 08/30/2022 8:59 AM EDT 08/30/2022 8:59 AM EDT Roland Pruett MD POINT OF CARE TEST O RDERABLES Performing Organization Address City/[facility] Co de Phone Number [facility] [place] [address] * Differential, Automated (08/30/2022 4:05 AM EDT) Neutrophil % 61.4 % [facility] Neutrophil Absolute 4.26 1.70 - 6.10 x10(3)/[facility] LABORATORY Lymph % 24.7 % [facility] LABORATORY Lymphocytes Abs 1.7 0.9 - 3.2 x10(3)/[facility] LABORATORY Monocyte % 7.6 % [facility] Monocyte Abs 0.5 0.3 - 0.9 x10(3)/[facility] LABORATORY Eos % 4.7 % [facility] LABORATORY Eosinophils Abs 0.3 0.0 - 0.4 x10(3)/[facility] LABORATORY Basophil % 1.2 % [facility] Baso Absolute 0.1 0.0 - 0.1 x10(3)/[facility] LABORATORY Immature Gran % 0.40 % [facility] Comment: Immature granulocytes(IG's)percentage and absolute count will include metamyelocytes, myelocytes, and promyelocytes. Blood smears from CBCs yielding IG's will be scanned manually for concordance. If this scan disagrees with the automated IG or if promyelocytes are noted, a manual differential will be performed. Immature Gran Absolute 0.03 0.00 - 0.04 x10(3)/[facility] LABORATORY Blood 08/30/2022 4:05 AM EDT 08/30/2022 4:13 AM EDT Narrative Resulting Agency Comment Spec In Lab Roland Pruett MD HEMATOLOGY ORDERABLE S [facility] [place] [address] * (ABNORMAL) Hemogram (08/30/2022 4:05 AM EDT) White Blood Cell 7.0 4.0 - 9.5 x10(3)/mc L [facility] Red Blood Cell 3.81(L) 4.00 - 5.21 x10(6)/mc L [facility] Hemoglobin 8.4(L) 11.7 - 15.5 g/dL [facility] Hematocrit 27.8(L) 35.7 - 45.8 % [facility] Mean Cell Volume 73.0(L) 82.6 - 94.4 fL [facility] Mean Cell Hemoglobin 22.0(L) 27.1 - 32.0 pg [facility] Mean Cell Hemoglobin Concentration 30.2(L) 31.7 - 35.0 g/dL [facility] Platelet 407(H) 145 - 357 x10(3)/mc L [facility] RDW Standard Deviation Not Measured 37.0 - 46.0 fL [facility] RDW coefficient of variation Not Measured 11.5 - 14.1 % [facility] Mean Platelet Volume 9.4 7.6 - 12.9 fL [facility] NRBC% auto 0.0 % [facility] NRBC Absolute 0.000 0.000 - 0.000 x10(3)/mc L [facility] Blood 08/30/2022 4:05 AM EDT 08/30/2022 4:13 AM EDT Narrative Resulting Agency Comment Spec In Lab Roland Pruett MD HEMATOLOGY ORDERABLE S Performing Organization Address [facility] de Phone Number [facility] [place] [address] * Phosphorus (08/30/2022 4:05 AM EDT) Phosphorus 3.7 2.5 - 4.5 mg/dL [facility] Blood 08/30/2022 4:05 AM EDT 08/30/2022 4:13 AM EDT Narrative Resulting Agency Comment Spec In Lab Roland Pruett MD CHEMISTRY ORDERABLES Performing Organization Address [facility] de Phone Number [facility] [place] [address] * Magnesium (08/30/2022 4:05 AM EDT) Magnesium 0.90 0.69 - 1.07 mmol/L [facility] Blood 08/30/2022 4:05 AM EDT 08/30/2022 4:13 AM EDT Narrative Resulting Agency Comment Spec In Lab Roland Pruett MD CHEMISTRY ORDERABLES Performing Organization Address [facility] Co de Phone Number [facility] [place] [address] * (ABNORMAL) Basic Metabolic Panel (non-fasting) (08/30/2022 4:05 AM EDT) Glucose 133 65 - 199 mg/dL [facility] Comment:Diabetes: >=200 mg/d L plus symptoms Blood Urea Nitrogen 19(H) 8 - 18 mg/dL [facility] Creatinine 0.50(L) 0.70 - 1.20 mg/dL [facility] Sodium 140 135 - 145 mmol/L [facility] Potassium 4.1 3.5 - 5.0 mmol/L [facility] Comment: Please note: ??Patients with WBC >100,000 may have falsely elevated Potassium levels. ??For accurate Potassium quantification in these patients send serum separator tube (gold top) for subsequent determinations. ??Contact the Clinical Chemistry Laboratory if there are any questions. Chloride 104 98 - 107 mmol/L [facility] Carbon Dioxide 28 22 - 31 mmol/L [facility] Anion Gap 8 5 - 15 mmol/L [facility] Calcium 9.4 8.5 - 10.5 mg/dL [facility] Est Glomerular Filtration Rate 106 >=60 mL/min/1. 73 m?? [facility] Comment: This patient's estimated GFR was [...] Pruett MD CHEMISTRY ORDERABLES Performing Organization Address [facility]/ZIP Co de Phone Number [facility] [place] [address] * POCT Glucose (08/30/2022 4:00 AM EDT) Glucose, POC 128 65 - 199 mg/dL [facility] Comment: Supplemental ranges: <140 mg/dL before meals <180 mg/dL all other times of the day Blood 08/30/2022 4:00 AM EDT 08/30/2022 4:00 AM EDT Roland Pruett MD POINT OF CARE TEST O GABRIELLA [facility] [place] [address] * POCT Glucose (08/29/2022 11:58 PM EDT) Glucose, POC 155 65 - 199 mg/dL [facility] Comment: Supplemental ranges: <140 mg/dL before meals <180 mg/dL all other times of the day Blood 08/29/2022 11:5 8 PM EDT 08/29/2022 11:58 PM EDT Roland Pruett MD POINT OF CARE TEST O GABRIELLA Performing Organization Address City/[facility]/ZIP Co de Phone Number [facility] [place] [address] * POCT Glucose (08/29/2022 8:16 PM EDT) Glucose, POC 146 65 - 199 mg/dL [facility] Comment: Supplemental ranges: <140 mg/dL before meals <180 mg/dL all other times of the day Blood 08/29/2022 8:16 PM EDT 08/29/2022 8:16 PM EDT Roland Pruett MD POINT OF CARE TEST O RDERAREYMUNDO [facility] [place] [address] * POCT Glucose (08/29/2022 4:08 PM EDT) Glucose, POC 194 65 - 199 mg/dL [facility] Comment: Supplemental ranges: <140 mg/dL before meals <180 mg/dL all other times of the day Blood 08/29/2022 4:08 PM EDT 08/29/2022 4:08 PM EDT Roland Pruett MD POINT OF CARE TEST O RDERABLES Performing Organization Address City/[facility]/ZIP Co de Phone Number [facility] [place] [address] * Valproic Acid Level, Total (08/29/2022 11:35 AM EDT) Valproic Acid 25 mg/L [facility] Comment: Therapeutic Range: Anticonvulsant Therapy: ??50-100 mg/L Manic Episodes Associated with Bipolar Disorder: ??50-125 mg/L Blood 08/29/2022 11:3 5 AM EDT 08/29/2022 11:44 AM EDT Narrative Resulting Agency Comment Spec In Lab Roland Pruett MD CHEMISTRY ORDERABLES Performing Organization Address [facility] Co de Phone Number [facility] [place] [address] * (ABNORMAL) POCT Glucose (08/29/2022 11:34 AM EDT) Glucose, POC 209(H) 65 - 199 mg/dL [facility] Comment: Supplemental ranges: <140 mg/dL before meals <180 mg/dL all other times of the day Blood 08/29/2022 11:3 4 AM EDT 08/29/2022 11:34 AM EDT Roland Pruett MD POINT OF CARE TEST O RDERABLES Performing Organization Address City/[facility] Co de Phone Number [facility] [place] [address] * Differential, Automated (08/29/2022 9:30 AM EDT) Neutrophil % 72.4 % [facility] Neutrophil Absolute 5.42 1.70 - 6.10 x10(3)/[facility] Lymph % 16.8 % [facility] Lymphocytes Abs 1.3 0.9 - 3.2 x10(3)/[facility] Monocyte % 6.5 % [facility] Monocyte Abs 0.5 0.3 - 0.9 x10(3)/[facility] Eos % 3.2 % [facility] Eosinophils Abs 0.2 0.0 - 0.4 x10(3)/[facility] Basophil % 0.8 % [facility] Baso Absolute 0.1 0.0 - 0.1 x10(3)/[facility] Immature Gran % 0.30 % [facility] Comment: Immature granulocytes(IG's)percentage and absolute count will include metamyelocytes, myelocytes, and promyelocytes. Blood smears from CBCs yielding IG's will be scanned manually for concordance. If this scan disagrees with the automated IG or if promyelocytes are noted, a manual differential will be performed. Immature Gran Absolute 0.02 0.00 - 0.04 x10(3)/[facility] Blood 08/29/2022 9:30 AM EDT 08/29/2022 9:31 AM EDT Narrative Resulting Agency Comment Spec In Lab Tyler Cobb MD HEMATOLOGY ORDERABLE S [facility] [place] [address] * (ABNORMAL) Hemogram (08/29/2022 9:30 AM EDT) White Blood Cell 7.5 4.0 - 9.5 x10(3)/mc L [facility] Red Blood Cell 4.01 4.00 - 5.21 x10(6)/ L [facility] Comment:Dimorphic RBC popula tion. Hemoglobin 8.7(L) 11.7 - 15.5 g/dL [facility] Hematocrit 28.5(L) 35.7 - 45.8 % [facility] Mean Cell Volume 71.1(L) 82.6 - 94.4 fL [facility] Mean Cell Hemoglobin 21.7(L) 27.1 - 32.0 pg [facility] Mean Cell Hemoglobin Concentration 30.5(L) 31.7 - 35.0 g/dL [facility] Platelet 448(H) 145 - 357 x10(3)/mc L [facility] RDW Standard Deviation Not Measured 37.0 - 46.0 fL [facility] RDW coefficient of variation Not Measured 11.5 - 14.1 % [facility] Mean Platelet Volume 9.5 7.6 - 12.9 fL [facility] NRBC% auto 0.0 % [facility] NRBC Absolute 0.000 0.000 - 0.000 x10(3)/mc L [facility] Blood 08/29/2022 9:30 AM EDT 08/29/2022 9:31 AM EDT Narrative Resulting Agency Comment Spec In Lab Tyler Cobb MD HEMATOLOGY ORDERABLE S Performing Organization Address [facility] Co de Phone Number [facility] [place] [address] * Phosphorus (08/29/2022 9:30 AM EDT) Phosphorus 3.4 2.5 - 4.5 mg/dL [facility] Blood 08/29/2022 9:30 AM EDT 08/29/2022 9:31 AM EDT Narrative Resulting Agency Comment Spec In Lab Richard Pascal MD CHEMISTRY ORDERABLES Performing Organization Address City/[facility] Co de Phone Number [facility] [place] [address] * Magnesium (08/29/2022 9:30 AM EDT) Magnesium 0.81 0.69 - 1.07 mmol/L [facility] Blood 08/29/2022 9:30 AM EDT 08/29/2022 9:31 AM EDT Narrative Resulting Agency Comment Spec In Lab Richard Pascal MD CHEMISTRY ORDERABLES Performing Organization Address City/[facility] Co de Phone Number [facility] [place] [address] * (ABNORMAL) Basic Metabolic Panel (non-fasting) (08/29/2022 9:30 AM EDT) Glucose 289(H) 65 - 199 mg/dL [facility] Comment:Diabetes: >=200 mg/d L plus symptoms Blood Urea Nitrogen 19(H) 8 - 18 mg/dL [facility] Creatinine 0.47(L) 0.70 - 1.20 mg/dL [facility] Sodium 137 135 - 145 mmol/L [facility] Potassium 4.4 3.5 - 5.0 mmol/L [facility] Comment: Please note: ??Patients with WBC >100,000 may have falsely elevated Potassium levels. ??For accurate Potassium quantification in these patients send serum separator tube (gold top) for subsequent determinations. ??Contact the Clinical Chemistry Laboratory if there are any questions. Chloride 103 98 - 107 mmol/L [facility] Carbon Dioxide 25 22 - 31 mmol/L [facility] Anion Gap 9 5 - 15 mmol/L [facility] Calcium 9.2 8.5 - 10.5 mg/dL [facility] Est Glomerular Filtration Rate 108 >=60 mL/min/1. 73 m?? [facility] Comment: This patient's estimated GFR was [...] Pascal MD CHEMISTRY ORDERABLES Performing Organization Address [facility] Co de Phone Number [facility] [place] [address] * (ABNORMAL) POCT Glucose (08/29/2022 9:13 AM EDT) Glucose, POC 279(H) 65 - 199 mg/dL [facility] Comment: Supplemental ranges: <140 mg/dL before meals <180 mg/dL all other times of the day Blood 08/29/2022 9:13 AM EDT 08/29/2022 9:13 AM EDT Roland Pruett MD POINT OF CARE TEST O RDERABLES [facility] [place] [address] * Lipid Panel (Reflex Direct LDL) (08/29/2022 4:48 AM EDT) Cholesterol, Total 110 mg/dL [facility] Comment: Lower Risk: <200 mg/dL Average Risk: 200-239 mg/dL Higher Risk: >iu=978 mg/dL Triglyceride 127 mg/dL [facility] Comment: Average Risk/Lower Risk: <150 mg/dL Borderline High Risk: 150-199 mg/dL High Risk: 200-499 mg/dL Very High Risk: >hc=540 mg/dL HDL Cholesterol 34 mg/dL [facility] Comment: Males: ?? Higher Risk: <40 mg/dL Females: ?? Higher Risk: <50 mg/dL LDL Cholesterol 51 mg/dL [facility] Comment: Lowest Risk: <100 mg/dL Lower Risk: 100-129 mg/dL Borderline High Risk: 130-159 mg/dL High Risk: 160-189 mg/dL Very High Risk: >ua=461 mg/dL Cholesterol/HDL Ratio 3.2 ratio [facility] Lipid Interpretation See Note [facility] Comment: Lipid management should be guided by a patient? s ASCVD risk, goals and preferences. ACC/AHA Guidelines recommend high intensity statin if clinical ASCVD or LDL greater than or equal to 190 mg/dL. http://Uskapeurl.com/YFS-VZE-Hrnjpqsqj Adults aged 40-75 with LDL 70-189 mg/dL should have their 10 year ASCVD risk estimated with the ACC/AHA ASCVD risk user support analyst supervisor http://tools.acc.org/PIPNU-Jpkk-Momtvmvwn/ Statin should be discussed if risk greater [...] Hernandez MD CHEMISTRY ORDERABLES Performing Organization Address [facility] Co de Phone Number [facility] [place] [address] * Valproic Acid Level, Total (08/29/2022 4:48 AM EDT) Valproic Acid 29 mg/L [facility] Comment: Therapeutic Range: Anticonvulsant Therapy: ??50-100 mg/L Manic Episodes Associated with Bipolar Disorder: ??50-125 mg/L Blood 08/29/2022 4:48 AM EDT 08/29/2022 4:58 AM EDT Narrative Resulting Agency Comment Spec In Lab Milagros Hernandez MD CHEMISTRY ORDERABLES Performing Organization Address [facility] Co de Phone Number [facility] [place] [address] * POCT Glucose (08/29/2022 3:53 AM EDT) Glucose, POC 152 65 - 199 mg/dL [facility] Comment: Supplemental ranges: <140 mg/dL before meals <180 mg/dL all other times of the day Blood 08/29/2022 3:53 AM EDT 08/29/2022 3:53 AM EDT Milagros Hernandez MD POINT OF CARE TEST O RDERABLES [facility] [place] [address] * POCT Glucose (08/29/2022 12:13 AM EDT) Glucose, POC 153 65 - 199 mg/dL [facility] Comment: Supplemental ranges: <140 mg/dL before meals <180 mg/dL all other times of the day Blood 08/29/2022 12:1 3 AM EDT 08/29/2022 12:13 AM EDT Milagros Hernandez MD POINT OF CARE TEST O RDERABLES Performing Organization Address [facility] Co de Phone Number [facility] [place] [address] * (ABNORMAL) POCT Glucose (08/28/2022 7:38 PM EDT) Glucose, POC 211(H) 65 - 199 mg/dL [facility] Comment: Supplemental ranges: <140 mg/dL before meals <180 mg/dL all other times of the day Blood 08/28/2022 7:38 PM EDT 08/28/2022 7:38 PM EDT Milagros Hernandez MD POINT OF CARE TEST O RDERABLES Performing Organization Address [facility] Co de Phone Number [facility] [place] [address] * POCT Glucose (08/28/2022 4:33 PM EDT) Glucose, POC 196 65 - 199 mg/dL [facility] Comment: Supplemental ranges: <140 mg/dL before meals <180 mg/dL all other times of the day Blood 08/28/2022 4:33 PM EDT 08/28/2022 4:33 PM EDT Milagros Hernandez MD POINT OF CARE TEST O RDERABLES Performing Organization Address City/[facility]/ZIP Co de Phone Number [facility] [place] [address] * (ABNORMAL) POCT Glucose (08/28/2022 12:06 PM EDT) Glucose, POC 221(H) 65 - 199 mg/dL [facility] Comment: Supplemental ranges: <140 mg/dL before meals <180 mg/dL all other times of the day Blood 08/28/2022 12:0 6 PM EDT 08/28/2022 12:06 PM EDT Milagros Hernandez MD POINT OF CARE TEST O RDERABLES [facility] [address] [place] [address] * Differential, Automated (08/28/2022 7:00 AM EDT) Neutrophil % 65.3 % [facility] Neutrophil Absolute 5.85 1.70 - 6.10 x10(3)/[facility] Lymph % 23.3 % [facility] Lymphocytes Abs 2.1 0.9 - 3.2 x10(3)/[facility] Monocyte % 6.8 % [facility] Monocyte Abs 0.6 0.3 - 0.9 x10(3)/[facility] Eos % 3.3 % [facility] Eosinophils Abs 0.3 0.0 - 0.4 x10(3)/[facility] Basophil % 0.9 % [facility] Baso Absolute 0.1 0.0 - 0.1 x10(3)/[facility] Immature Gran % 0.40 % [facility] Comment: Immature granulocytes(IG's)percentage and absolute count will include metamyelocytes, myelocytes, and promyelocytes. Blood smears from CBCs yielding IG's will be scanned manually for concordance. If this scan disagrees with the automated IG or if promyelocytes are noted, a manual differential will be performed. Immature Gran Absolute 0.04 0.00 - 0.04 x10(3)/[facility] Blood 08/28/2022 7:00 AM EDT 08/28/2022 7:04 AM EDT Narrative Resulting Agency Comment Spec In Lab Tyler Cobb MD HEMATOLOGY ORDERABLE S [facility] [place] [address] * (ABNORMAL) Hemogram (08/28/2022 7:00 AM EDT) White Blood Cell 9.0 4.0 - 9.5 x10(3)/mc L [facility] Red Blood Cell 3.90(L) 4.00 - 5.21 x10(6)/mc L [facility] Comment:Dimorphic RBC popula tion. Hemoglobin 8.6(L) 11.7 - 15.5 g/dL [facility] Hematocrit 27.4(L) 35.7 - 45.8 % [facility] Mean Cell Volume 70.3(L) 82.6 - 94.4 fL [facility] Mean Cell Hemoglobin 22.1(L) 27.1 - 32.0 pg [facility] Mean Cell Hemoglobin Concentration 31.4(L) 31.7 - 35.0 g/dL [facility] Platelet 464(H) 145 - 357 x10(3)/mc L [facility] RDW Standard Deviation Not Measured 37.0 - 46.0 fL [facility] RDW coefficient of variation Not Measured 11.5 - 14.1 % [facility] Mean Platelet Volume 9.5 7.6 - 12.9 fL [facility] NRBC% auto 0.0 % [facility] NRBC Absolute 0.000 0.000 - 0.000 x10(3)/mc L [facility] Blood 08/28/2022 7:00 AM EDT 08/28/2022 7:04 AM EDT Narrative Resulting Agency Comment Spec In Lab Tyler Cobb MD HEMATOLOGY ORDERABLE S [facility] [place] [address] * (ABNORMAL) Phosphorus (08/28/2022 7:00 AM EDT) Phosphorus 4.6(H) 2.5 - 4.5 mg/dL [facility] Blood 08/28/2022 7:00 AM EDT 08/28/2022 7:04 AM EDT Narrative Resulting Agency Comment Spec In Lab Richard Pascal MD CHEMISTRY ORDERABLES Performing Organization Address [facility] Co de Phone Number [facility] [place] [address] * Magnesium (08/28/2022 7:00 AM EDT) Magnesium 0.87 0.69 - 1.07 mmol/L [facility] Blood 08/28/2022 7:00 AM EDT 08/28/2022 7:04 AM EDT Narrative Resulting Agency Comment Spec In Lab Richard Pascal MD CHEMISTRY ORDERABLES Performing Organization Address [facility] de Phone Number [facility] [place] [address] * (ABNORMAL) Basic Metabolic Panel (non-fasting) (08/28/2022 7:00 AM EDT) Glucose 113 65 - 199 mg/dL [facility] Comment:Diabetes: >=200 mg/d L plus symptoms Blood Urea Nitrogen 15 8 - 18 mg/dL [facility] Creatinine 0.46(L) 0.70 - 1.20 mg/dL [facility] Sodium 141 135 - 145 mmol/L [facility] Potassium 4.2 3.5 - 5.0 mmol/L [facility] Comment: Please note: ??Patients with WBC >100,000 may have falsely elevated Potassium levels. ??For accurate Potassium quantification in these patients send serum separator tube (gold top) for subsequent determinations. ??Contact the Clinical Chemistry Laboratory if there are any questions. Chloride 105 98 - 107 mmol/L [facility] Carbon Dioxide 27 22 - 31 mmol/L [facility] Anion Gap 9 5 - 15 mmol/L [facility] Calcium 9.4 8.5 - 10.5 mg/dL [facility] Est Glomerular Filtration Rate 108 >=60 mL/min/1. 73 m?? [facility] Comment: This patient's estimated [...] Pascal MD CHEMISTRY ORDERABLES Performing Organization Address [facility] Co de Phone Number [facility] [place] [address] * POCT Glucose (08/28/2022 4:59 AM EDT) Glucose, POC 96 65 - 199 mg/dL [facility] Comment: Supplemental ranges: <140 mg/dL before meals <180 mg/dL all other times of the day Blood 08/28/2022 4:59 AM EDT 08/28/2022 4:59 AM EDT Milagros Hernandez MD POINT OF CARE TEST O RDERAREYMUNDO Performing Organization Address [facility] Co de Phone Number [facility] [place] [address] * POCT Glucose (08/28/2022 12:08 AM EDT) Glucose, POC 91 65 - 199 mg/dL [facility] Comment: Supplemental ranges: <140 mg/dL before meals <180 mg/dL all other times of the day Blood 08/28/2022 12:0 8 AM EDT 08/28/2022 12:08 AM EDT iMlagros Hernandez MD POINT OF CARE TEST O RDERABLES Performing Organization Address [facility] Co de Phone Number [facility] [place] [address] * POCT Glucose (08/27/2022 9:50 PM EDT) Glucose, POC 140 65 - 199 mg/dL [facility] Comment: Supplemental ranges: <140 mg/dL before meals <180 mg/dL all other times of the day Blood 08/27/2022 9:50 PM EDT 08/27/2022 9:50 PM EDT Milagros Hernandez MD POINT OF CARE TEST O GABRIELLA Performing Organization Address [facility] Co de Phone Number [facility] [place] [address] * Potassium (08/27/2022 6:00 PM EDT) Potassium 4.0 3.5 - 5.0 mmol/L [facility] Comment: Please note: ??Patients with WBC [...] Pascal MD CHEMISTRY ORDERABLES Performing Organization Address [facility] Co de Phone Number [facility] [place] [address] * POCT Glucose (08/27/2022 4:55 PM EDT) Glucose, POC 149 65 - 199 mg/dL [facility] Comment: Supplemental ranges: <140 mg/dL before meals <180 mg/dL all other times of the day Blood 08/27/2022 4:55 PM EDT 08/27/2022 4:55 PM EDT Milagros Hernandez MD POINT OF CARE TEST O RDERABLES Performing Organization Address [facility] Co de Phone Number [facility] [place] [address] * Potassium (08/27/2022 1:55 PM EDT) Potassium 4.3 3.5 - 5.0 mmol/L [facility] Comment: Please note: ??Patients with WBC [...] Pascal MD CHEMISTRY ORDERABLES Performing Organization Address [facility] Co de Phone Number [facility] [place] [address] * POCT Glucose (08/27/2022 11:32 AM EDT) Glucose, POC 141 65 - 199 mg/dL [facility] Comment: Supplemental ranges: <140 mg/dL before meals <180 mg/dL all other times of the day Blood 08/27/2022 11:3 2 AM EDT 08/27/2022 11:32 AM EDT Milagros Hernandez MD POINT OF CARE TEST O RDERABLES Performing Organization Address [facility] Co de Phone Number [facility] [place] [address] * Potassium (08/27/2022 9:50 AM EDT) Potassium 4.4 3.5 - 5.0 mmol/L [facility] Comment: Please note: ??Patients with WBC >100,000 may have falsely elevated Potassium levels. ??For accurate Potassium quantification in these patients send serum separator tube (gold top) for subsequent determinations. ??Contact the Clinical Chemistry Laboratory if there are any questions. Blood 08/27/2022 9:50 AM EDT 08/27/2022 10:05 AM EDT Narrative Resulting Agency Comment Spec In Lab Richard Pascal MD CHEMISTRY ORDERABLES [facility] [place] [address] * CT Chest wo Contrast (Generic) (08/27/2022 [...] who have questions please contact the health pediatric acute care unit nurse that requested your imaging first. ? Electronically signed by: MINH QUIROGA MD, [facility] ([phone]), at 08/27/2022 10:48 AM Narrative 08/27/2022 10:48 AM EDT EXAMINATION: CT [...] patients who have questions please contactthe health pediatric acute care unit nurse that requested your imaging first. Electronically signed by: MINH QUIROGA MD, [facility]([phone]), at 08/27/2022 10:48 AM Milagros Hernandez MD IMG CT ORDERABLES [...] who have questions please contact the health pediatric acute care unit nurse that requested your imaging first. ? Electronically signed by: Arlette Mays MD, [facility] ([phone]), at 08/27/2022 11:39 AM Narrative 08/27/2022 11:39 [...] Vera H, Amirah R, et al. ??Distribution ofcoronary [...] patients who have questions please contactthe health pediatric acute care unit nurse that requested your imaging first. Electronically signed by: Arlette Mays MD, [facility] ([phone]), at 08/27/2022 11:39 AM Milagros Hernandez MD IMG CT ORDERABLES * POCT Glucose (08/27/2022 7:38 AM EDT) Glucose, POC 114 65 - 199 mg/dL [facility] Comment: Supplemental ranges: <140 mg/dL before meals <180 mg/dL all other times of the day Blood 08/27/2022 7:38 AM EDT 08/27/2022 7:38 AM EDT Milagros Hernandez MD POINT OF CARE TEST O RDERABLES [facility] [place] [address] * (ABNORMAL) Differential, Automated (08/27/2022 5:40 AM EDT) [facility] Neutrophil % 69.4 % [facility] Neutrophil Absolute 6.61(H) 1.70 - 6.10 x10(3)/mc L [facility] Lymph % 18.6 % [facility] Lymphocytes Abs 1.8 0.9 - 3.2 x10(3)/[facility] Monocyte % 7.7 % [facility] Monocyte Abs 0.7 0.3 - 0.9 x10(3)/mc [facility] Eos % 3.2 % [facility] Eosinophils Abs 0.3 0.0 - 0.4 x10(3)/ L [facility] Basophil % 0.7 % [facility] Baso Absolute 0.1 0.0 - 0.1 x10(3)/mc L [facility] Immature Gran % 0.40 % [facility] Comment: Immature granulocytes(IG's)percentage and absolute count will include metamyelocytes, myelocytes, and promyelocytes. Blood smears from CBCs yielding IG's will be scanned manually for concordance. If this scan disagrees with the automated IG or if promyelocytes are noted, a manual differential will be performed. Immature Gran Absolute 0.04 0.00 - 0.04 x10(3)/mc L [facility] Blood 08/27/2022 5:40 AM EDT 08/27/2022 5:44 AM EDT Narrative Resulting Agency Comment Spec In Lab Tyler Cobb MD HEMATOLOGY ORDERABLE S [facility] [place] [address] * (ABNORMAL) Hemogram (08/27/2022 5:40 AM EDT) White Blood Cell 9.5 4.0 - 9.5 x10(3)/ L [facility] Red Blood Cell 3.92(L) 4.00 - 5.21 x10(6)/ L [facility] Comment:Dimorphic RBC popula tion. Hemoglobin 8.6(L) 11.7 - 15.5 g/dL [facility] Hematocrit 27.7(L) 35.7 - 45.8 % [facility] Mean Cell Volume 70.7(L) 82.6 - 94.4 fL [facility] Mean Cell Hemoglobin 21.9(L) 27.1 - 32.0 pg [facility] Mean Cell Hemoglobin Concentration 31.0(L) 31.7 - 35.0 g/dL [facility] Platelet 528(H) 145 - 357 x10(3)/mc L [facility] RDW Standard Deviation Not Measured 37.0 - 46.0 fL [facility] RDW coefficient of variation Not Measured 11.5 - 14.1 % [facility] Mean Platelet Volume 9.7 7.6 - 12.9 fL [facility] NRBC% auto 0.0 % [facility] NRBC Absolute 0.000 0.000 - 0.000 x10(3)/ L [facility] Blood 08/27/2022 5:40 AM EDT 08/27/2022 5:44 AM EDT Narrative Resulting Agency Comment Spec In Lab Tyler Cobb MD HEMATOLOGY ORDERABLE S [facility] [place] [address] * Phosphorus (08/27/2022 5:40 AM EDT) Phosphorus 3.7 2.5 - 4.5 mg/dL [facility] Blood 08/27/2022 5:40 AM EDT 08/27/2022 5:44 AM EDT Narrative Resulting Agency Comment Spec In Lab Richard Pascal MD CHEMISTRY ORDERABLES Performing Organization Address City/[facility] Co de Phone Number [facility] [place] [address] * Magnesium (08/27/2022 5:40 AM EDT) Magnesium 0.85 0.69 - 1.07 mmol/L [facility] Blood 08/27/2022 5:40 AM EDT 08/27/2022 5:44 AM EDT Narrative Resulting Agency Comment Spec In Lab Richard Pascal MD CHEMISTRY ORDERABLES Performing Organization Address [facility] de Phone Number [facility] [place] [address] * (ABNORMAL) Basic Metabolic Panel (non-fasting) (08/27/2022 5:40 AM EDT) Glucose 130 65 - 199 mg/dL [facility] Comment:Diabetes: >=200 mg/d L plus symptoms Blood Urea Nitrogen 15 8 - 18 mg/dL [facility] Creatinine 0.44(L) 0.70 - 1.20 mg/dL [facility] Sodium 139 135 - 145 mmol/L [facility] Potassium 4.4 3.5 - 5.0 mmol/L [facility] Comment: Please note: ??Patients with WBC >100,000 may have falsely elevated Potassium levels. ??For accurate Potassium quantification in these patients send serum separator tube (gold top) for subsequent determinations. ??Contact the Clinical Chemistry Laboratory if there are any questions. Chloride 106 98 - 107 mmol/L [facility] Carbon Dioxide 27 22 - 31 mmol/L [facility] Anion Gap 6 5 - 15 mmol/L [facility] Calcium 9.3 8.5 - 10.5 mg/dL [facility] Est Glomerular Filtration Rate 109 >=60 mL/min/1. 73 m?? [facility] Comment: This patient's estimated [...] Pascal MD CHEMISTRY ORDERABLES Performing Organization Address [facility] Co de Phone Number [facility] [place] [address] * POCT Glucose (08/27/2022 5:19 AM EDT) Glucose, POC 124 65 - 199 mg/dL [facility] Comment: Supplemental ranges: <140 mg/dL before meals <180 mg/dL all other times of the day Blood 08/27/2022 5:19 AM EDT 08/27/2022 5:19 AM EDT Milagros Hernandez MD POINT OF CARE TEST O RDERABLES Performing Organization Address [facility] Co de Phone Number [facility] [place] [address] * POCT Glucose (08/26/2022 11:27 PM EDT) Glucose, POC 162 65 - 199 mg/dL [facility] Comment: Supplemental ranges: <140 mg/dL before meals <180 mg/dL all other times of the day Blood 08/26/2022 11:2 7 PM EDT 08/26/2022 11:27 PM EDT Milagros Hernandez MD POINT OF CARE TEST O RDERABLES Performing Organization Address City/[facility] Co de Phone Number [facility] [place] [address] * POCT Glucose (08/26/2022 8:05 PM EDT) Glucose, POC 138 65 - 199 mg/dL [facility] Comment: Supplemental ranges: <140 mg/dL before meals <180 mg/dL all other times of the day Blood 08/26/2022 8:05 PM EDT 08/26/2022 8:05 PM EDT Milagros Hernandez MD POINT OF CARE TEST O GABRIELLA [facility] [place] [address] * POCT Glucose (08/26/2022 4:51 PM EDT) Glucose, POC 111 65 - 199 mg/dL [facility] Comment: Supplemental ranges: <140 mg/dL before meals <180 mg/dL all other times of the day Blood 08/26/2022 4:51 PM EDT 08/26/2022 4:51 PM EDT Milagros Hernandez MD POINT OF CARE TEST O GABRIELLA Performing Organization Address City/[facility]/ZIP Co de Phone Number [facility] [place] [address] * POCT Glucose (08/26/2022 1:13 PM EDT) Glucose, POC 151 65 - 199 mg/dL [facility] Comment: Supplemental ranges: <140 mg/dL before meals <180 mg/dL all other times of the day Blood 08/26/2022 1:13 PM EDT 08/26/2022 1:13 PM EDT Milagros Hernandez MD POINT OF CARE TEST O GABRIELLA [facility] [place] [address] * POCT Glucose (08/26/2022 11:28 AM EDT) Glucose, POC 130 65 - 199 mg/dL [facility] Comment: Supplemental ranges: <140 mg/dL before meals <180 mg/dL all other times of the day Blood 08/26/2022 11:2 8 AM EDT 08/26/2022 11:28 AM EDT Milagros Hernandez MD POINT OF CARE TEST O RDERABLES Performing Organization Address City/[facility] Co de Phone Number [facility] [place] [address] * (ABNORMAL) POCT Glucose (08/26/2022 7:58 AM EDT) Glucose, POC 202(H) 65 - 199 mg/dL [facility] Comment: Supplemental ranges: <140 mg/dL before meals <180 mg/dL all other times of the day Blood 08/26/2022 7:58 AM EDT 08/26/2022 7:58 AM EDT Milagros Hernandez MD POINT OF CARE TEST O RDERABLES Performing Organization Address [facility] Co de Phone Number [facility] [place] [address] * POCT Glucose (08/26/2022 4:42 AM EDT) Glucose, POC 160 65 - 199 mg/dL [facility] Comment: Supplemental ranges: <140 mg/dL before meals <180 mg/dL all other times of the day Blood 08/26/2022 4:42 AM EDT 08/26/2022 4:42 AM EDT Milagros Hernandez MD POINT OF CARE TEST O RDERABLES Performing Organization Address City/[facility] Co de Phone Number [facility] [place] [address] * (ABNORMAL) Differential, Automated (08/26/2022 12:22 AM EDT) Neutrophil % 67.5 % [facility] Neutrophil Absolute 6.01 1.70 - 6.10 x10(3)/mc L [facility] Lymph % 18.8 % [facility] Lymphocytes Abs 1.7 0.9 - 3.2 x10(3)/ L [facility] Monocyte % 8.9 % [facility] Monocyte Abs 0.8 0.3 - 0.9 x10(3)/[facility] Eos % 3.3 % [facility] Eosinophils Abs 0.3 0.0 - 0.4 x10(3)/[facility] Basophil % 0.7 % [facility] Baso Absolute 0.1 0.0 - 0.1 x10(3)/ L [facility] Immature Gran % 0.80 % [facility] Comment: Immature granulocytes(IG's)percentage and absolute count will include metamyelocytes, myelocytes, and promyelocytes. Blood smears from CBCs yielding IG's will be scanned manually for concordance. If this scan disagrees with the automated IG or if promyelocytes are noted, a manual differential will be performed. Immature Gran Absolute 0.07(H) 0.00 - 0.04 x10(3)/ L [facility] Blood 08/26/2022 12:2 2 AM EDT 08/26/2022 12:30 AM EDT Narrative Resulting Agency Comment Spec In Lab Tyler Cobb MD HEMATOLOGY ORDERABLE S [facility] [place] [address] * (ABNORMAL) Hemogram (08/26/2022 12:22 AM EDT) White Blood Cell 8.9 4.0 - 9.5 x10(3)/ L [facility] Red Blood Cell 3.80(L) 4.00 - 5.21 x10(6)/[facility] Comment:Dimorphic RBC popula tion. Hemoglobin 8.3(L) 11.7 - 15.5 g/dL [facility] Hematocrit 26.6(L) 35.7 - 45.8 % [facility] Mean Cell Volume 70.0(L) 82.6 - 94.4 fL [facility] Mean Cell Hemoglobin 21.8(L) 27.1 - 32.0 pg [facility] Mean Cell Hemoglobin Concentration 31.2(L) 31.7 - 35.0 g/dL [facility] Platelet 456(H) 145 - 357 x10(3)/mc L [facility] RDW Standard Deviation Not Measured 37.0 - 46.0 fL [facility] RDW coefficient of variation Not Measured 11.5 - 14.1 % [facility] Mean Platelet Volume 9.9 7.6 - 12.9 fL [facility] NRBC% auto 0.0 % [facility] NRBC Absolute 0.000 0.000 - 0.000 x10(3)/mc L [facility] Blood 08/26/2022 12:2 2 AM EDT 08/26/2022 12:30 AM EDT Narrative Resulting Agency Comment Spec In Lab Tyler Cobb MD HEMATOLOGY ORDERABLE S Performing Organization Address City/State/[facility] Co de Phone Number [facility] [place] [address] * (ABNORMAL) Basic Metabolic Panel (non-fasting) (08/26/2022 12:22 AM EDT) Glucose 195 65 - 199 mg/dL [facility] Comment:Diabetes: >=200 mg/d L plus symptoms Blood Urea Nitrogen 12 8 - 18 mg/dL [facility] Creatinine 0.38(L) 0.70 - 1.20 mg/dL [facility] Sodium 137 135 - 145 mmol/L [facility] Potassium 4.0 3.5 - 5.0 mmol/L [facility] Comment: Please note: ??Patients with WBC >100,000 may have falsely elevated Potassium levels. ??For accurate Potassium quantification in these patients send serum separator tube (gold top) for subsequent determinations. ??Contact the Clinical Chemistry Laboratory if there are any questions. Chloride 105 98 - 107 mmol/L [facility] Carbon Dioxide 25 22 - 31 mmol/L [facility] Anion Gap 7 5 - 15 mmol/L [facility] Calcium 9.0 8.5 - 10.5 mg/dL [facility] Est Glomerular Filtration Rate 113 >=60 mL/min/1. 73 m?? [facility] Comment: This patient's estimated GFR was [...] Pascal MD CHEMISTRY ORDERABLES Performing Organization Address City/[facility] Co de Phone Number [facility] [place] [address] * Phosphorus (08/26/2022 12:22 AM EDT) Phosphorus 2.8 2.5 - 4.5 mg/dL [facility] Blood 08/26/2022 12:2 2 AM EDT 08/26/2022 12:30 AM EDT Narrative Resulting Agency Comment Spec In Lab Richard Pascal MD CHEMISTRY ORDERABLES Performing Organization Address City/[facility]/ZIP Co de Phone Number [facility] [place] [address] * Magnesium (08/26/2022 12:22 AM EDT) Magnesium 0.76 0.69 - 1.07 mmol/L [facility] Blood 08/26/2022 12:2 2 AM EDT 08/26/2022 12:30 AM EDT Narrative Resulting Agency Comment Spec In Lab Richard Pascal MD CHEMISTRY ORDERABLES Performing Organization Address City/[facility]/ZIP Co de Phone Number [facility] [place] [address] * POCT Glucose (08/26/2022 12:19 AM EDT) Glucose, POC 188 65 - 199 mg/dL [facility] Comment: Supplemental ranges: <140 mg/dL before meals <180 mg/dL all other times of the day Blood 08/26/2022 12:1 9 AM EDT 08/26/2022 12:19 AM EDT Milagros Hernandez MD POINT OF CARE TEST O GABRIELLA [facility] [place] [address] * POCT Glucose (08/25/2022 7:47 PM EDT) Glucose, POC 182 65 - 199 mg/dL [facility] Comment: Supplemental ranges: <140 mg/dL before meals <180 mg/dL all other times of the day Blood 08/25/2022 7:47 PM EDT 08/25/2022 7:47 PM EDT Milagros Hernandez MD POINT OF CARE TEST Chepe QUIROZ Performing Organization Address City/[facility]/ZIP Co de Phone Number [facility] [place] [address] * POCT Glucose (08/25/2022 4:31 PM EDT) Glucose, POC 156 65 - 199 mg/dL [facility] Comment: Supplemental ranges: <140 mg/dL before meals <180 mg/dL all other times of the day Blood 08/25/2022 4:31 PM EDT 08/25/2022 4:31 PM EDT Milagros Hernandez MD POINT OF CARE TEST O GABRIELLA Performing Organization Address City/State/[facility] Co de Phone Number [facility] [place] [address] * POCT Glucose (08/25/2022 3:08 PM EDT) Glucose, POC 113 65 - 199 mg/dL [facility] Comment: Supplemental ranges: <140 mg/dL before meals <180 mg/dL all other times of the day Blood 08/25/2022 3:08 PM EDT 08/25/2022 3:08 PM EDT Milagros Hernandez MD POINT OF CARE TEST O RDERAREYMUNDO Performing Organization Address City/[facility] Co de Phone Number [facility] [place] [address] * POCT Glucose (08/25/2022 2:09 PM EDT) Glucose, POC 146 65 - 199 mg/dL [facility] Comment: Supplemental ranges: <140 mg/dL before meals <180 mg/dL all other times of the day Blood 08/25/2022 2:09 PM EDT 08/25/2022 2:09 PM EDT Milagros Hernandez MD POINT OF CARE TEST O GABRIELLA Performing Organization Address [facility] Co de Phone Number [facility] [place] [address] * POCT Glucose (08/25/2022 12:44 PM EDT) Glucose, POC 197 65 - 199 mg/dL [facility] Comment: Supplemental ranges: <140 mg/dL before meals <180 mg/dL all other times of the day Blood 08/25/2022 12:4 4 PM EDT 08/25/2022 12:44 PM EDT Milagros Hernandez MD POINT OF CARE TEST O RDERAREYMUNDO Performing Organization Address City/[facility] Co de Phone Number [facility] [place] [address] * (ABNORMAL) POCT Glucose (08/25/2022 12:25 PM EDT) Glucose, POC 212(H) 65 - 199 mg/dL [facility] Comment: Supplemental ranges: <140 mg/dL before meals <180 mg/dL all other times of the day Blood 08/25/2022 12:2 5 PM EDT 08/25/2022 12:25 PM EDT Milagros Hernandez MD POINT OF CARE TEST O RDERABLES Performing Organization Address City/[facility]/ZIP Co de Phone Number [facility] [place] [address] * Valproic Acid Level, Total (08/25/2022 11:28 AM EDT) Valproic Acid 21 mg/L [facility] Comment: Therapeutic Range: Anticonvulsant Therapy: ??50-100 mg/L Manic Episodes Associated with Bipolar Disorder: ??50-125 mg/L Blood 08/25/2022 11:2 8 AM EDT 08/25/2022 11:34 AM EDT Narrative Resulting Agency Comment Spec In Lab Milagros Hernandez MD CHEMISTRY ORDERABLES Performing Organization Address [facility] Co de Phone Number [facility] [place] [address] * POCT Glucose (08/25/2022 11:09 AM EDT) Glucose, POC 185 65 - 199 mg/dL [facility] Comment: Supplemental ranges: <140 mg/dL before meals <180 mg/dL all other times of the day Blood 08/25/2022 11:0 9 AM EDT 08/25/2022 11:09 AM EDT Milagros Hernandez MD POINT OF CARE TEST O RDERABLES Performing Organization Address [facility] Co de Phone Number [facility] [place] [address] * POCT Glucose (08/25/2022 9:52 AM EDT) Glucose, POC 162 65 - 199 mg/dL [facility] Comment: Supplemental ranges: <140 mg/dL before meals <180 mg/dL all other times of the day Blood 08/25/2022 9:52 AM EDT 08/25/2022 9:52 AM EDT Milagros Hernandez MD POINT OF CARE TEST O GABRIELLA Performing Organization Address [facility] Co de Phone Number [facility] [place] [address] * POCT Glucose (08/25/2022 8:59 AM EDT) Glucose, POC 137 65 - 199 mg/dL [facility] Comment: Supplemental ranges: <140 mg/dL before meals <180 mg/dL all other times of the day Blood 08/25/2022 8:59 AM EDT 08/25/2022 8:59 AM EDT Milagros Hernandez MD POINT OF CARE TEST O GABRIELLA Performing Organization Address [facility] Co de Phone Number [facility] [place] [address] * (ABNORMAL) POCT Glucose (08/25/2022 7:32 AM EDT) Glucose, POC 202(H) 65 - 199 mg/dL [facility] Comment: Supplemental ranges: <140 mg/dL before meals <180 mg/dL all other times of the day Blood 08/25/2022 7:32 AM EDT 08/25/2022 7:32 AM EDT Milagros Hernandez MD POINT OF CARE TEST O GABRIELLA Performing Organization Address [facility] Co de Phone Number [facility] [place] [address] * POCT Glucose (08/25/2022 5:50 AM EDT) Glucose, POC 169 65 - 199 mg/dL [facility] Comment: Supplemental ranges: <140 mg/dL before meals <180 mg/dL all other times of the day Blood 08/25/2022 5:50 AM EDT 08/25/2022 5:50 AM EDT Milagros Hernandez MD POINT OF CARE TEST O RDERABLES [facility] [place] [address] * POCT Glucose (08/25/2022 3:23 AM EDT) Glucose, POC 157 65 - 199 mg/dL [facility] Comment: Supplemental ranges: <140 mg/dL before meals <180 mg/dL all other times of the day Blood 08/25/2022 3:23 AM EDT 08/25/2022 3:23 AM EDT Milagros Hernandez MD POINT OF CARE TEST O RDERABLES Performing Organization Address City/[facility]/ZIP Co de Phone Number [facility] [place] [address] * POCT Glucose (08/25/2022 2:35 AM EDT) Glucose, POC 163 65 - 199 mg/dL [facility] Comment: Supplemental ranges: <140 mg/dL before meals <180 mg/dL all other times of the day Blood 08/25/2022 2:35 AM EDT 08/25/2022 2:35 AM EDT Milagros Hernandez MD POINT OF CARE TEST O RDERABLES Performing Organization Address City/[facility]/ZIP Co de Phone Number [facility] [place] [address] * Scan, Peripheral Blood (08/25/2022 1:14 AM EDT) Plat estimate Increased [facility] RBC Morphology Abnormal [facility] Macrocyte 1-5 /HPF [facility] H[facility]PI [facility] Microcyte 6-10 /HPF [facility] H[facility]PI [facility] Hypochromia Slight [facility] HOS PITAL [facility] Polychromasia Present >5/HPF [facility] Ovalocytes 1-5 /HPF [facility] HOSP ITAL LABORATORY Target Cells 1-5 /HPF [facility] SP[facility] [place] Cells 1-5 /HPF [facility] HOSP ITAL LABOR[facility]ORY Blood 08/25/2022 1:14 AM EDT 08/25/2022 1:14 AM EDT Narrative Resulting Agency Comment Spec In Lab Tyler Cobb [place] [address] * (ABNORMAL) Differential, Automated (08/25/2022 1:14 AM EDT) Neutrophil % 72.4 % [facility] Neutrophil Absolute 8.27(H) 1.70 - 6.10 x10(3)/mc L [facility] Lymph % 15.6 % [facility] Lymphocytes Abs 1.8 0.9 - 3.2 x10(3)/mc L [facility] Monocyte % 8.5 % [facility] IT[facility] Monocyte Abs 1.0(H) 0.3 - 0.9 x10(3)/mc L [facility] Eos % 2.3 % [facility] Eosinophils Abs 0.3 0.0 - 0.4 x10(3)/mc L [facility] Basophil % 0.4 % [facility] Baso Absolute 0.0 0.0 - 0.1 x10(3)/mc L [facility] Immature Gran % 0.80 % [facility] Comment: Immature granulocytes(IG's)percentage and absolute count will include metamyelocytes, myelocytes, and promyelocytes. Blood smears from CBCs yielding IG's will be scanned manually for concordance. If this scan disagrees with the automated IG or if promyelocytes are noted, a manual differential will be performed. Immature Gran Absolute 0.09(H) 0.00 - 0.04 x10(3)/mc L [facility] Blood 08/25/2022 1:14 AM EDT 08/25/2022 1:14 AM EDT Narrative Resulting Agency Comment Spec In Lab Tyler Cobb MD HEMATOLOGY ORDERABLE S [facility] [place] [address] * (ABNORMAL) Hemogram (08/25/2022 1:14 AM EDT) White Blood Cell 11.4(H) 4.0 - 9.5 x10(3)/mc L [facility] Red Blood Cell 4.00 4.00 - 5.21 x10(6)/mc L [facility] Comment:Dimorphic RBC popula tion. Hemoglobin 8.6(L) 11.7 - 15.5 g/dL [facility] Hematocrit 27.9(L) 35.7 - 45.8 % [facility] Mean Cell Volume 69.8(L) 82.6 - 94.4 fL [facility] Mean Cell Hemoglobin 21.5(L) 27.1 - 32.0 pg [facility] Mean Cell Hemoglobin Concentration 30.8(L) 31.7 - 35.0 g/dL [facility] Platelet 501(H) 145 - 357 x10(3)/mc L [facility] RDW Standard Deviation Not Measured 37.0 - 46.0 fL [facility] RDW coefficient of variation Not Measured 11.5 - 14.1 % [facility] Mean Platelet Volume 9.8 7.6 - 12.9 fL [facility]PITAL [facility] NRBC% auto 0.0 % [facility] ITAL LABORATORY NRBC Absolute 0.000 0.000 - 0.000 x10(3)/ L [facility] Blood 08/25/2022 1:14 AM EDT 08/25/2022 1:14 AM EDT Narrative Resulting Agency Comment Spec In Lab Tyler Cobb MD HEMATOLOGY ORDERABLE S [facility] [place] [address] * (ABNORMAL) Basic Metabolic Panel (non-fasting) (08/25/2022 1:14 AM EDT) Glucose 186 65 - 199 mg/dL [facility] Comment:Diabetes: >=200 mg/d L plus symptoms Blood Urea Nitrogen 15 8 - 18 mg/dL [facility] Creatinine 0.38(L) 0.70 - 1.20 mg/dL [facility] Sodium 138 135 - 145 mmol/L [facility] Potassium 4.1 3.5 - 5.0 mmol/L [facility] Comment: Please note: ??Patients with WBC >100,000 may have falsely elevated Potassium levels. ??For accurate Potassium quantification in these patients send serum separator tube (gold top) for subsequent determinations. ??Contact the Clinical Chemistry Laboratory if there are any questions. Chloride 106 98 - 107 mmol/L [facility] Carbon Dioxide 24 22 - 31 mmol/L [facility] Anion Gap 8 5 - 15 mmol/L [facility] Calcium 8.6 8.5 - 10.5 mg/dL [facility] Est Glomerular Filtration Rate 113 >=60 mL/min/1. 73 m?? [facility] Comment: This patient's estimated GFR was [...] Pascal MD CHEMISTRY ORDERABLES Performing Organization Address [facility] Co de Phone Number [facility] [place] [address] * (ABNORMAL) Phosphorus (08/25/2022 1:14 AM EDT) Phosphorus 2.3(L) 2.5 - 4.5 mg/dL [facility] Blood 08/25/2022 1:14 AM EDT 08/25/2022 1:14 AM EDT Narrative Resulting Agency Comment Spec In Lab Richard Pascal MD CHEMISTRY ORDERABLES Performing Organization Address City/[facility]/ZIP Co de Phone Number [facility] [place] [address] * Magnesium (08/25/2022 1:14 AM EDT) Magnesium 0.82 0.69 - 1.07 mmol/L [facility] Blood 08/25/2022 1:14 AM EDT 08/25/2022 1:14 AM EDT Narrative Resulting Agency Comment Spec In Lab Richard Pascal MD CHEMISTRY ORDERABLES Performing Organization Address City/[facility]/ZIP Co de Phone Number [facility] [place] [address] * POCT Glucose (08/25/2022 1:00 AM EDT) Glucose, POC 186 65 - 199 mg/dL [facility] Comment: Supplemental ranges: <140 mg/dL before meals <180 mg/dL all other times of the day Blood 08/25/2022 1:00 AM EDT 08/25/2022 1:00 AM EDT Milagros Hernandez MD POINT OF CARE TEST O RDERABLES Performing Organization Address City/[facility] Co de Phone Number [facility] [place] [address] * POCT Glucose (08/24/2022 11:26 PM EDT) Glucose, POC 198 65 - 199 mg/dL [facility] Comment: Supplemental ranges: <140 mg/dL before meals <180 mg/dL all other times of the day Blood 08/24/2022 11:2 6 PM EDT 08/24/2022 11:26 PM EDT Milagros Hernandez MD POINT OF CARE TEST O RDERABLES Performing Organization Address City/[facility] Co de Phone Number [facility] [place] [address] * POCT Glucose (08/24/2022 10:16 PM EDT) Glucose, POC 188 65 - 199 mg/dL [facility] Comment: Supplemental ranges: <140 mg/dL before meals <180 mg/dL all other times of the day Blood 08/24/2022 10:1 6 PM EDT 08/24/2022 10:16 PM EDT Milagros Hernandez MD POINT OF CARE TEST O GABRIELLA Performing Organization Address City/[facility]/ZIP Co de Phone Number [facility] [place] [address] * POCT Glucose (08/24/2022 9:20 PM EDT) Glucose, POC 195 65 - 199 mg/dL [facility] Comment: Supplemental ranges: <140 mg/dL before meals <180 mg/dL all other times of the day Blood 08/24/2022 9:20 PM EDT 08/24/2022 9:20 PM EDT Milagros Hernandez MD POINT OF CARE TEST O GABRIELLA Performing Organization Address [facility] Co de Phone Number [facility] [place] [address] * POCT Glucose (08/24/2022 7:41 PM EDT) Glucose, POC 185 65 - 199 mg/dL [facility] Comment: Supplemental ranges: <140 mg/dL before meals <180 mg/dL all other times of the day Blood 08/24/2022 7:41 PM EDT 08/24/2022 7:41 PM EDT Milagros Hernandez MD POINT OF CARE TEST O GABRIELLA Performing Organization Address City/[facility] Co de Phone Number [facility] [place] [address] * POCT Glucose (08/24/2022 6:38 PM EDT) Glucose, POC 136 65 - 199 mg/dL [facility] Comment: Supplemental ranges: <140 mg/dL before meals <180 mg/dL all other times of the day Blood 08/24/2022 6:38 PM EDT 08/24/2022 6:38 PM EDT Milagros Hernandez MD POINT OF CARE TEST O RDERAREYMUNDO Performing Organization Address City/[facility] Co de Phone Number [facility] [place] [address] * POCT Glucose (08/24/2022 6:00 PM EDT) Glucose, POC 131 65 - 199 mg/dL [facility] Comment: Supplemental ranges: <140 mg/dL before meals <180 mg/dL all other times of the day Blood 08/24/2022 6:00 PM EDT 08/24/2022 6:00 PM EDT Milagros Hernandez MD POINT OF CARE TEST O RDERAREYMUNDO Performing Organization Address [facility] Co de Phone Number [facility] [place] [address] * POCT Glucose (08/24/2022 4:21 PM EDT) Glucose, POC 147 65 - 199 mg/dL [facility] Comment: Supplemental ranges: <140 mg/dL before meals <180 mg/dL all other times of the day Blood 08/24/2022 4:21 PM EDT 08/24/2022 4:21 PM EDT Milagros Hernandez MD POINT OF CARE TEST O RDERAREYMUNDO Performing Organization Address [facility] Co de Phone Number [facility] [place] [address] * POCT Glucose (08/24/2022 3:14 PM EDT) Glucose, POC 160 65 - 199 mg/dL [facility] Comment: Supplemental ranges: <140 mg/dL before meals <180 mg/dL all other times of the day Blood 08/24/2022 3:14 PM EDT 08/24/2022 3:14 PM EDT Milagros Hernandez MD POINT OF CARE TEST O GABRIELLA Performing Organization Address [facility] Co de Phone Number [facility] [place] [address] * Potassium (08/24/2022 2:21 PM EDT) Potassium 4.4 3.5 - 5.0 mmol/L [facility] Comment: Please note: ??Patients with WBC [...] Pascal MD CHEMISTRY ORDERABLES Performing Organization Address [facility] Co de Phone Number [facility] [place] [address] * POCT Glucose (08/24/2022 2:16 PM EDT) Glucose, POC 168 65 - 199 mg/dL [facility] Comment: Supplemental ranges: <140 mg/dL before meals <180 mg/dL all other times of the day Blood 08/24/2022 2:16 PM EDT 08/24/2022 2:16 PM EDT Milagros Hernandez MD POINT OF CARE TEST O GABRIELLA Performing Organization Address [facility] Co de Phone Number [facility] [place] [address] * POCT Glucose (08/24/2022 1:10 PM EDT) Glucose, POC 166 65 - 199 mg/dL [facility] Comment: Supplemental ranges: <140 mg/dL before meals <180 mg/dL all other times of the day Blood 08/24/2022 1:10 PM EDT 08/24/2022 1:10 PM EDT Milagros Hernandez MD POINT OF CARE TEST O RDERABLES Performing Organization Address City/[facility]/ZIP Co de Phone Number [facility] [place] [address] * POCT Glucose (08/24/2022 12:12 PM EDT) Glucose, POC 185 65 - 199 mg/dL [facility] Comment: Supplemental ranges: <140 mg/dL before meals <180 mg/dL all other times of the day Blood 08/24/2022 12:1 2 PM EDT 08/24/2022 12:12 PM EDT Milagros Hernandez MD POINT OF CARE TEST O RDERABLES Performing Organization Address [facility] Co de Phone Number [facility] [place] [address] * (ABNORMAL) Vitamin D, 25-Hydroxy (08/24/2022 11:29 AM EDT) Vitamin D Total 25 OH 12(L) 21 - 100 ng/mL [facility] Vit D Interp Deficient [facility] Blood 08/24/2022 11:2 9 AM EDT 08/24/2022 11:49 AM EDT Narrative Resulting Agency Comment Spec In Lab Dixie Tadeo MD CHEMISTRY ORDERABLES Performing Organization Address City/[facility] Co de Phone Number [facility] [place] [address] * PTH (08/24/2022 11:29 AM EDT) Parathyroid Hormone 60 15 - 65 pg/mL [facility] Blood 08/24/2022 11:2 9 AM EDT 08/24/2022 11:49 AM EDT Narrative Resulting Agency Comment Spec In Lab Dixie Tadeo MD CHEMISTRY ORDERABLES Performing Organization Address City/[facility]/ZIP Co de Phone Number [facility] [place] [address] * POCT Glucose (08/24/2022 11:22 AM EDT) Glucose, POC 183 65 - 199 mg/dL [facility] Comment: Supplemental ranges: <140 mg/dL before meals <180 mg/dL all other times of the day Blood 08/24/2022 11:2 2 AM EDT 08/24/2022 11:22 AM EDT Milagros Hernandez MD POINT OF CARE TEST O GABRIELLA Performing Organization Address City/[facility] Co de Phone Number [facility] [place] [address] * POCT Glucose (08/24/2022 10:27 AM EDT) Glucose, POC 193 65 - 199 mg/dL [facility] Comment: Supplemental ranges: <140 mg/dL before meals <180 mg/dL all other times of the day Blood 08/24/2022 10:2 7 AM EDT 08/24/2022 10:27 AM EDT Milagros Hernandez MD POINT OF CARE TEST O GABRIELLA Performing Organization Address [facility] Co de Phone Number [facility] [place] [address] * POCT Glucose (08/24/2022 9:12 AM EDT) Glucose, POC 171 65 - 199 mg/dL [facility] Comment: Supplemental ranges: <140 mg/dL before meals <180 mg/dL all other times of the day Blood 08/24/2022 9:12 AM EDT 08/24/2022 9:12 AM EDT Milagros Hernandez MD POINT OF CARE TEST O GABRIELLA Performing Organization Address City/[facility] Co de Phone Number [facility] [place] [address] * (ABNORMAL) POCT Glucose (08/24/2022 8:00 AM EDT) Glucose, POC 224(H) 65 - 199 mg/dL [facility] Comment: Supplemental ranges: <140 mg/dL before meals <180 mg/dL all other times of the day Blood 08/24/2022 8:00 AM EDT 08/24/2022 8:00 AM EDT Milagros Hernandez MD POINT OF CARE TEST O GABRIELLA Performing Organization Address City/[facility] Co de Phone Number [facility] [place] [address] * POCT Glucose (08/24/2022 6:16 AM EDT) Glucose, POC 183 65 - 199 mg/dL [facility] Comment: Supplemental ranges: <140 mg/dL before meals <180 mg/dL all other times of the day Blood 08/24/2022 6:16 AM EDT 08/24/2022 6:16 AM EDT Milagros Hernandez MD POINT OF CARE TEST O GABRIELLA Performing Organization Address [facility] Co de Phone Number [facility] [place] [address] * POCT Glucose (08/24/2022 4:49 AM EDT) Glucose, POC 145 65 - 199 mg/dL [facility] Comment: Supplemental ranges: <140 mg/dL before meals <180 mg/dL all other times of the day Blood 08/24/2022 4:49 AM EDT 08/24/2022 4:49 AM EDT Milagros Hernandez MD POINT OF CARE TEST O RDERABLES Performing Organization Address City/[facility] Co de Phone Number [facility] [place] [address] * POCT Glucose (08/24/2022 4:08 AM EDT) Glucose, POC 135 65 - 199 mg/dL [facility] Comment: Supplemental ranges: <140 mg/dL before meals <180 mg/dL all other times of the day Blood 08/24/2022 4:08 AM EDT 08/24/2022 4:08 AM EDT Milagros Hernandez MD POINT OF CARE TEST O RDERABLES Performing Organization Address [facility]/ZIP Co de Phone Number [facility] [place] [address] * Scan, Peripheral Blood (08/24/2022 1:53 AM EDT) Plat estimate Increased [facility] RBC Morphology Abnormal [facility] Microcyte 1-5 /HPF [facility] Hypochromia Slight [facility] PITAL [facility] Ovalocytes 1-5 /HPF [facility] ITAL LABORATORY Connor Cells 1-5 /HPF [facility] ITAL [facility] Platelet Clumps Present [facility] Blood 08/24/2022 1:53 AM EDT 08/24/2022 2:02 AM EDT Narrative Resulting Agency Comment Spec In Lab Tyler Cobb MD HEMATOLOGY ORDERABLE S Performing Organization Address [facility] Co de Phone Number [facility] [place] [address] * (ABNORMAL) Differential, Automated (08/24/2022 1:53 AM EDT) Neutrophil % 77.0 % [facility] Neutrophil Absolute 10.61(H) 1.70 - 6.10 x10(3)/mc L [facility] Lymph % 11.1 % [facility] Lymphocytes Abs 1.5 0.9 - 3.2 x10(3)/mc L [facility] Monocyte % 8.2 % [facility] ITAL LABORATORY Monocyte Abs 1.1(H) 0.3 - 0.9 x10(3)/mc L [facility] Eos % 2.2 % [facility] Eosinophils Abs 0.3 0.0 - 0.4 x10(3)/mc L [facility] Basophil % 0.4 % [facility] ITAL [facility] Baso Absolute 0.1 0.0 - 0.1 x10(3)/mc L [facility] Immature Gran % 1.10 % [facility] Comment: Immature granulocytes(IG's)percentage and absolute count will include metamyelocytes, myelocytes, and promyelocytes. Blood smears from CBCs yielding IG's will be scanned manually for concordance. If this scan disagrees with the automated IG or if promyelocytes are noted, a manual differential will be performed. Immature Gran Absolute 0.15(H) 0.00 - 0.04 x10(3)/mc L [facility] Blood 08/24/2022 1:53 AM EDT 08/24/2022 2:02 AM EDT Narrative Resulting Agency Comment Spec In Lab Tyler Cobb MD HEMATOLOGY ORDERABLE S [facility] [place] [address] * (ABNORMAL) Hemogram (08/24/2022 1:53 AM EDT) White Blood Cell 13.8(H) 4.0 - 9.5 x10(3)/mc L [facility] Red Blood Cell 4.05 4.00 - 5.21 x10(6)/mc L [facility] Hemoglobin 8.7(L) 11.7 - 15.5 g/dL [facility] Hematocrit 28.1(L) 35.7 - 45.8 % [facility] Mean Cell Volume 69.4(L) 82.6 - 94.4 fL [facility] Mean Cell Hemoglobin 21.5(L) 27.1 - 32.0 pg [facility] Mean Cell Hemoglobin Concentration 31.0(L) 31.7 - 35.0 g/dL [facility] Platelet 504(H) 145 - 357 x10(3)/mc L [facility] RDW Standard Deviation 71.8(H) 37.0 - 46.0 fL [facility] RDW coefficient of variation 31.0(H) 11.5 - 14.1 % [facility] Mean Platelet Volume 9.7 7.6 - 12.9 fL [facility] NRBC% auto 0.1 % [facility] ITAL LABORATORY NRBC Absolute 0.020(H) 0.000 - 0.000 x10(3)/mc L [facility] Blood 08/24/2022 1:53 AM EDT 08/24/2022 2:02 AM EDT Narrative Resulting Agency Comment Spec In Lab Tyler Cobb MD HEMATOLOGY ORDERABLE S [facility] [address] * (ABNORMAL) Basic Metabolic Panel (non-fasting) (08/24/2022 1:53 AM EDT) Glucose 155 65 - 199 mg/dL [facility] Comment:Diabetes: >=200 mg/d L plus symptoms Blood Urea Nitrogen 17 8 - 18 mg/dL [facility] Creatinine 0.45(L) 0.70 - 1.20 mg/dL [facility] Sodium 141 135 - 145 mmol/L [facility] Potassium 3.7 3.5 - 5.0 mmol/L [facility] Comment: Please note: ??Patients with WBC >100,000 may have falsely elevated Potassium levels. ??For accurate Potassium quantification in these patients send serum separator tube (gold top) for subsequent determinations. ??Contact the Clinical Chemistry Laboratory if there are any questions. Chloride 106 98 - 107 mmol/L [facility] Carbon Dioxide 27 22 - 31 mmol/L [facility] Anion Gap 8 5 - 15 mmol/L [facility] Calcium 8.6 8.5 - 10.5 mg/dL [facility] Est Glomerular Filtration Rate 109 >=60 mL/min/1. 73 m?? [facility] Comment: This patient's estimated GFR was [...] Pascal MD CHEMISTRY ORDERABLES Performing Organization Address [facility] Co de Phone Number [facility] [place] [address] * (ABNORMAL) Phosphorus (08/24/2022 1:53 AM EDT) Phosphorus 2.3(L) 2.5 - 4.5 mg/dL [facility] Blood 08/24/2022 1:53 AM EDT 08/24/2022 2:02 AM EDT Narrative Resulting Agency Comment Spec In Lab Richard Pascal MD CHEMISTRY ORDERABLES Performing Organization Address [facility] Co de Phone Number [facility] [place] [address] * Magnesium (08/24/2022 1:53 AM EDT) Magnesium 0.90 0.69 - 1.07 mmol/L [facility] Blood 08/24/2022 1:53 AM EDT 08/24/2022 2:02 AM EDT Narrative Resulting Agency Comment Spec In Lab Richard Pascal MD CHEMISTRY ORDERABLES Performing Organization Address [facility] Co de Phone Number [facility] [place] [address] * POCT Glucose (08/24/2022 1:51 AM EDT) Glucose, POC 151 65 - 199 mg/dL [facility] Comment: Supplemental ranges: <140 mg/dL before meals <180 mg/dL all other times of the day Blood 08/24/2022 1:51 AM EDT 08/24/2022 1:51 AM EDT Milagros Hernandez MD POINT OF CARE TEST O RDERABLES Performing Organization Address City/[facility] Co de Phone Number [facility] [place] [address] * POCT Glucose (08/24/2022 12:01 AM EDT) Glucose, POC 174 65 - 199 mg/dL [facility] Comment: Supplemental ranges: <140 mg/dL before meals <180 mg/dL all other times of the day Blood 08/24/2022 12:0 1 AM EDT 08/24/2022 12:01 AM EDT Milagros Hernandez MD POINT OF CARE TEST O GABRIELLA [facility] [place] [address] * POCT Glucose (08/23/2022 11:03 PM EDT) Glucose, POC 180 65 - 199 mg/dL [facility] Comment: Supplemental ranges: <140 mg/dL before meals <180 mg/dL all other times of the day Blood 08/23/2022 11:0 3 PM EDT 08/23/2022 11:03 PM EDT Milagros Hernandez MD POINT OF CARE TEST O GABRIELLA Performing Organization Address City/[facility]/ZIP Co de Phone Number [facility] [place] [address] * (ABNORMAL) POCT Glucose (08/23/2022 9:10 PM EDT) Glucose, POC 200(H) 65 - 199 mg/dL [facility] Comment: Supplemental ranges: <140 mg/dL before meals <180 mg/dL all other times of the day Blood 08/23/2022 9:10 PM EDT 08/23/2022 9:10 PM EDT Milagros Hernandez MD POINT OF CARE TEST O GABRIELLA [facility] [place] [address] * POCT Glucose (08/23/2022 7:01 PM EDT) Glucose, POC 189 65 - 199 mg/dL [facility] Comment: Supplemental ranges: <140 mg/dL before meals <180 mg/dL all other times of the day Blood 08/23/2022 7:01 PM EDT 08/23/2022 7:01 PM EDT Milagros Hernandez MD POINT OF CARE TEST O GABRIELLA Performing Organization Address City/[facility] Co de Phone Number [facility] [place] [address] * POCT Glucose (08/23/2022 6:09 PM EDT) Glucose, POC 194 65 - 199 mg/dL [facility] Comment: Supplemental ranges: <140 mg/dL before meals <180 mg/dL all other times of the day Blood 08/23/2022 6:09 PM EDT 08/23/2022 6:09 PM EDT Milagros Hernandez MD POINT OF CARE TEST O GABRIELLA Performing Organization Address [facility] Co de Phone Number [facility] [place] [address] * (ABNORMAL) POCT Glucose (08/23/2022 4:26 PM EDT) Glucose, POC 214(H) 65 - 199 mg/dL [facility] Comment: Supplemental ranges: <140 mg/dL before meals <180 mg/dL all other times of the day Blood 08/23/2022 4:26 PM EDT 08/23/2022 4:26 PM EDT Milagros Hernandez MD POINT OF CARE TEST O GABRIELLA Performing Organization Address City/[facility] Co de Phone Number [facility] [place] [address] * POCT Glucose (08/23/2022 2:56 PM EDT) Glucose, POC 158 65 - 199 mg/dL [facility] Comment: Supplemental ranges: <140 mg/dL before meals <180 mg/dL all other times of the day Blood 08/23/2022 2:56 PM EDT 08/23/2022 2:56 PM EDT Milagros Hernandez MD POINT OF CARE TEST O RDERABLES Performing Organization Address City/[facility] Co de Phone Number [facility] [place] [address] * POCT Glucose (08/23/2022 1:32 PM EDT) Glucose, POC 166 65 - 199 mg/dL [facility] Comment: Supplemental ranges: <140 mg/dL before meals <180 mg/dL all other times of the day Blood 08/23/2022 1:32 PM EDT 08/23/2022 1:32 PM EDT Milagros Hernandez MD POINT OF CARE TEST O RDERAREYMUNDO Performing Organization Address [facility] Co de Phone Number [facility] [place] [address] * POCT Glucose (08/23/2022 12:06 PM EDT) Glucose, POC 171 65 - 199 mg/dL [facility] Comment: Supplemental ranges: <140 mg/dL before meals <180 mg/dL all other times of the day Blood 08/23/2022 12:0 6 PM EDT 08/23/2022 12:06 PM EDT Milagros Hernandez MD POINT OF CARE TEST O RDERAREYMUNDO Performing Organization Address City/[facility] Co de Phone Number [facility] [place] [address] * POCT Glucose (08/23/2022 11:09 AM EDT) Glucose, POC 153 65 - 199 mg/dL [facility] Comment: Supplemental ranges: <140 mg/dL before meals <180 mg/dL all other times of the day Blood 08/23/2022 11:0 9 AM EDT 08/23/2022 11:09 AM EDT Milagros Hernandez MD POINT OF CARE TEST O RDERABLES Performing Organization Address City/[facility] [place] [address] * Scan, Peripheral Blood (08/23/2022 10:55 AM EDT) Plat estimate Increased [facility] RBC Morphology Abnormal [facility] Microcyte 1-5 /HPF [facility] Hypochromia Slight [facility] Ovalocytes 1-5 /HPF [facility] Connor Cells 1-5 /HPF [facility] Platelet Clumps Present [facility] Blood 08/23/2022 10:5 5 AM EDT 08/23/2022 11:03 AM EDT Narrative Resulting Agency Comment Spec In Lab Neva Tomlin MD HEMATOLOGY ORDERABLE S Performing Organization Address [facility] Co de Phone Number [facility] [place] [address] * (ABNORMAL) Differential, Automated (08/23/2022 10:55 AM EDT) Neutrophil % 81.2 % [facility] Neutrophil Absolute 13.28(H) 1.70 - 6.10 x10(3)/mc L [facility] Lymph % 8.6 % [facility] Lymphocytes Abs 1.4 0.9 - 3.2 x10(3)/mc L [facility] Monocyte % 7.0 % [facility] Monocyte Abs 1.2(H) 0.3 - 0.9 x10(3)/mc L [facility] Eos % 1.7 % [facility] Eosinophils Abs 0.3 0.0 - 0.4 x10(3)/mc L [facility] Basophil % 0.2 % [facility] Baso Absolute 0.0 0.0 - 0.1 x10(3)/mc L [facility] Immature Gran % 1.30 % [facility] Comment: Immature granulocytes(IG's)percentage and absolute count will include metamyelocytes, myelocytes, and promyelocytes. Blood smears from CBCs yielding IG's will be scanned manually for concordance. If this scan disagrees with the automated IG or if promyelocytes are noted, a manual differential will be performed. Immature Gran Absolute 0.22(H) 0.00 - 0.04 x10(3)/mc L [facility] Blood 08/23/2022 10:5 5 AM EDT 08/23/2022 11:03 AM EDT Narrative Resulting Agency Comment Spec In Lab Neva Tomlin MD HEMATOLOGY ORDERABLE S [facility] [place] [address] * (ABNORMAL) Hemogram (08/23/2022 10:55 AM EDT) White Blood Cell 16.4(H) 4.0 - 9.5 x10(3)/mc L [facility] Red Blood Cell 3.89(L) 4.00 - 5.21 x10(6)/mc L [facility] Hemoglobin 8.6(L) 11.7 - 15.5 g/dL [facility] Hematocrit 27.2(L) 35.7 - 45.8 % [facility] Mean Cell Volume 69.9(L) 82.6 - 94.4 fL [facility] Mean Cell Hemoglobin 22.1(L) 27.1 - 32.0 pg [facility] Mean Cell Hemoglobin Concentration 31.6(L) 31.7 - 35.0 g/dL [facility] Platelet Not Measured 145 - 357 x10(3)/mc [facility] Comment: Platelet clumps present. Estimate appears Increased. If numerical platelet count is necessary send both a Sodium Citrate tube and an EDTA tube for future platelet count orders. RDW Standard Deviation Not Measured 37.0 - 46.0 fL [facility] RDW coefficient of variation Not Measured 11.5 - 14.1 % [facility] Mean Platelet Volume Not Measured 7.6 - 12.9 fL [facility] NRBC% auto 0.2 % [facility] NRBC Absolute 0.030(H) 0.000 - 0.000 x10(3)/mc L [facility] Blood 08/23/2022 10:5 5 AM EDT 08/23/2022 11:03 AM EDT Narrative Resulting Agency Comment Spec In Lab Neva Tomlin MD HEMATOLOGY ORDERABLE S [facility] [place] [address] * (ABNORMAL) POCT Glucose (08/23/2022 8:01 AM EDT) Glucose, POC 210(H) 65 - 199 mg/dL [facility] Comment: Supplemental ranges: <140 mg/dL before meals <180 mg/dL all other times of the day Blood 08/23/2022 8:01 AM EDT 08/23/2022 8:01 AM EDT Milagros Hernandez MD POINT OF CARE TEST O GABRIELLA Performing Organization Address [facility]/ZIP Co de Phone Number [facility] [place] [address] * POCT Glucose (08/23/2022 4:22 AM EDT) Glucose, POC 173 65 - 199 mg/dL [facility] Comment: Supplemental ranges: <140 mg/dL before meals <180 mg/dL all other times of the day Blood 08/23/2022 4:22 AM EDT 08/23/2022 4:22 AM EDT Milagros Hernandez MD POINT OF CARE TEST O GABRIELLA [facility] [place] [address] * POCT Glucose (08/23/2022 2:32 AM EDT) Glucose, POC 181 65 - 199 mg/dL [facility] Comment: Supplemental ranges: <140 mg/dL before meals <180 mg/dL all other times of the day Blood 08/23/2022 2:32 AM EDT 08/23/2022 2:32 AM EDT Milagros Hernandez MD POINT OF CARE TEST O RDERABLES Performing Organization Address [facility] Co de Phone Number [facility] [place] [address] * Scan, Peripheral Blood (08/23/2022 2:30 AM EDT) Plat estimate Increased [facility] RBC Morphology Abnormal [facility] Microcyte 1-5 /HPF [facility] Hypochromia Slight [facility] Ovalocytes 1-5 /HPF [facility] ITAL LABOR[facility] Target Cells 1-5 /HPF [facility] Platelet Clumps Present [facility] Blood 08/23/2022 2:30 AM EDT 08/23/2022 2:42 AM EDT Narrative Resulting Agency Comment Spec In Lab Tyler Cobb MD HEMATOLOGY ORDERABLE S Performing Organization Address [facility] Co de Phone Number [facility] [place] [address] * (ABNORMAL) Differential, Automated (08/23/2022 2:30 AM EDT) Neutrophil % 79.7 % [facility] Neutrophil Absolute 13.27(H) 1.70 - 6.10 x10(3)/mc L [facility] Lymph % 9.2 % [facility] Lymphocytes Abs 1.5 0.9 - 3.2 x10(3)/mc L [facility] Monocyte % 7.8 % [facility] Monocyte Abs 1.3(H) 0.3 - 0.9 x10(3)/mc L [facility] Eos % 1.6 % [facility] Eosinophils Abs 0.3 0.0 - 0.4 x10(3)/mc L [facility] Basophil % 0.2 % [facility] Baso Absolute 0.0 0.0 - 0.1 x10(3)/mc L [facility] Immature Gran % 1.50 % [facility] Comment: Immature granulocytes(IG's)percentage and absolute count will include metamyelocytes, myelocytes, and promyelocytes. Blood smears from CBCs yielding IG's will be scanned manually for concordance. If this scan disagrees with the automated IG or if promyelocytes are noted, a manual differential will be performed. Immature Gran Absolute 0.25(H) 0.00 - 0.04 x10(3)/mc L [facility] Blood 08/23/2022 2:30 AM EDT 08/23/2022 2:42 AM EDT Narrative Resulting Agency Comment Spec In Lab Tyler Cobb MD HEMATOLOGY ORDERABLE S [facility] [place] [address] * (ABNORMAL) Hemogram (08/23/2022 2:30 AM EDT) White Blood Cell 16.7(H) 4.0 - 9.5 x10(3)/mc L [facility] Red Blood Cell 3.98(L) 4.00 - 5.21 x10(6)/mc L [facility] Hemoglobin 8.7(L) 11.7 - 15.5 g/dL [facility] Hematocrit 27.6(L) 35.7 - 45.8 % [facility] Mean Cell Volume 69.3(L) 82.6 - 94.4 fL [facility] Mean Cell Hemoglobin 21.9(L) 27.1 - 32.0 pg [facility] Mean Cell Hemoglobin Concentration 31.5(L) 31.7 - 35.0 g/dL [facility] Platelet Not Measured 145 - 357 x10(3)/mc L [facility] Comment: Platelet clumps present. Estimate appears Increased. If numerical platelet count is necessary send both a Sodium Citrate tube and an EDTA tube for future platelet count orders. RDW Standard Deviation Not Measured 37.0 - 46.0 fL [facility] RDW coefficient of variation Not Measured 11.5 - 14.1 % [facility] Mean Platelet Volume Not Measured 7.6 - 12.9 fL [facility] NRBC% auto 0.2 % [facility] NRBC Absolute 0.040(H) 0.000 - 0.000 x10(3)/mc L [facility] Blood 08/23/2022 2:30 AM EDT 08/23/2022 2:42 AM EDT Narrative Resulting Agency Comment Spec In Lab Tyler Cobb MD HEMATOLOGY ORDERABLE S [facility] [place] [address] * (ABNORMAL) Basic Metabolic Panel (non-fasting) (08/23/2022 2:30 AM EDT) Glucose 195 65 - 199 mg/dL [facility] Comment:Diabetes: >=200 mg/d L plus symptoms Blood Urea Nitrogen 16 8 - 18 mg/dL [facility] Creatinine 0.53(L) 0.70 - 1.20 mg/dL [facility] Sodium 142 135 - 145 mmol/L [facility] Potassium 4.2 3.5 - 5.0 mmol/L [facility] Comment: Please note: ??Patients with WBC >100,000 may have falsely elevated Potassium levels. ??For accurate Potassium quantification in these patients send serum separator tube (gold top) for subsequent determinations. ??Contact the Clinical Chemistry Laboratory if there are any questions. Chloride 107 98 - 107 mmol/L [facility] Carbon Dioxide 27 22 - 31 mmol/L [facility] Anion Gap 8 5 - 15 mmol/L [facility] Calcium 8.5 8.5 - 10.5 mg/dL [facility] Est Glomerular Filtration Rate 105 >=60 mL/min/1. 73 m?? [facility] Comment: This patient's estimated GFR was [...] Pascal MD CHEMISTRY ORDERABLES Performing Organization Address [facility] de Phone Number [facility] [place] [address] * Phosphorus (08/23/2022 2:30 AM EDT) Phosphorus 2.8 2.5 - 4.5 mg/dL [facility] Blood 08/23/2022 2:30 AM EDT 08/23/2022 2:42 AM EDT Narrative Resulting Agency Comment Spec In Lab Richard Pascal MD CHEMISTRY ORDERABLES Performing Organization Address [facility] Phone Number [facility] [place] [address] * Magnesium (08/23/2022 2:30 AM EDT) Magnesium 0.80 0.69 - 1.07 mmol/L [facility] Blood 08/23/2022 2:30 AM EDT 08/23/2022 2:42 AM EDT Narrative Resulting Agency Comment Spec In Lab Richard Pascal MD CHEMISTRY ORDERABLES Performing Organization Address [facility] Phone Number [facility] [place] [address] * POCT Glucose (08/23/2022 1:11 AM EDT) Glucose, POC 137 65 - 199 mg/dL [facility] Comment: Supplemental ranges: <140 mg/dL before meals <180 mg/dL all other times of the day Blood 08/23/2022 1:11 AM EDT 08/23/2022 1:11 AM EDT Milagros Hernandez MD POINT OF CARE TEST O RDERABLES [facility] [place] [address] * POCT Glucose (08/23/2022 12:28 AM EDT) Glucose, POC 136 65 - 199 mg/dL [facility] Comment: Supplemental ranges: <140 mg/dL before meals <180 mg/dL all other times of the day Blood 08/23/2022 12:2 8 AM EDT 08/23/2022 12:28 AM EDT Milagros Hernandez MD POINT OF CARE TEST O RDERABLES [facility] [place] [address] * POCT Glucose (08/22/2022 10:15 PM EDT) Glucose, POC 194 65 - 199 mg/dL [facility] Comment: Supplemental ranges: <140 mg/dL before meals <180 mg/dL all other times of the day Blood 08/22/2022 10:1 5 PM EDT 08/22/2022 10:15 PM EDT Milagros Hernandez MD POINT OF CARE TEST O RDERAREYMUNDO Performing Organization Address [facility]/ZIP Co de Phone Number [facility] [place] [address] * POCT Glucose (08/22/2022 9:11 PM EDT) Glucose, POC 162 65 - 199 mg/dL [facility] Comment: Supplemental ranges: <140 mg/dL before meals <180 mg/dL all other times of the day Blood 08/22/2022 9:11 PM EDT 08/22/2022 9:11 PM EDT Milagros Hernandez MD POINT OF CARE TEST O RDERABLES [facility] [place] [address] * POCT Glucose (08/22/2022 6:47 PM EDT) Glucose, POC 181 65 - 199 mg/dL [facility] Comment: Supplemental ranges: <140 mg/dL before meals <180 mg/dL all other times of the day Blood 08/22/2022 6:47 PM EDT 08/22/2022 6:47 PM EDT Milagros Hernandez MD POINT OF CARE TEST O GABRIELLA [facility] [place] [address] * POCT Glucose (08/22/2022 6:14 PM EDT) Glucose, POC 193 65 - 199 mg/dL [facility] Comment: Supplemental ranges: <140 mg/dL before meals <180 mg/dL all other times of the day Blood 08/22/2022 6:14 PM EDT 08/22/2022 6:14 PM EDT Milagros Hernandez MD POINT OF CARE TEST O GABRIELLA Performing Organization Address City/[facility] Co de Phone Number [facility] [place] [address] * (ABNORMAL) POCT Glucose (08/22/2022 5:37 PM EDT) Glucose, POC 202(H) 65 - 199 mg/dL [facility] Comment: Supplemental ranges: <140 mg/dL before meals <180 mg/dL all other times of the day Blood 08/22/2022 5:37 PM EDT 08/22/2022 5:37 PM EDT iMlagros Hernandez MD POINT OF CARE TEST O RDERAREYMUNDO Performing Organization Address City/[facility] Co de Phone Number [facility] [place] [address] * (ABNORMAL) POCT Glucose (08/22/2022 4:17 PM EDT) Glucose, POC 207(H) 65 - 199 mg/dL [facility] Comment: Supplemental ranges: <140 mg/dL before meals <180 mg/dL all other times of the day Blood 08/22/2022 4:17 PM EDT 08/22/2022 4:17 PM EDT Milagros Hernandez MD POINT OF CARE TEST O RDERABLES [facility] [place] [address] * POCT Glucose (08/22/2022 2:01 PM EDT) Glucose, POC 147 65 - 199 mg/dL [facility] Comment: Supplemental ranges: <140 mg/dL before meals <180 mg/dL all other times of the day Blood 08/22/2022 2:01 PM EDT 08/22/2022 2:01 PM EDT Milagros Hernandez MD POINT OF CARE TEST O GABRIELLA Performing Organization Address [facility]/ZIP Co de Phone Number [facility] [place] [address] * POCT Glucose (08/22/2022 12:10 PM EDT) Glucose, POC 121 65 - 199 mg/dL [facility] Comment: Supplemental ranges: <140 mg/dL before meals <180 mg/dL all other times of the day Blood 08/22/2022 12:1 0 PM EDT 08/22/2022 12:10 PM EDT Milagros Hernandez MD POINT OF CARE TEST O RDERABLES Performing Organization Address City/[facility] Co de Phone Number [facility] [place] [address] * Prepare RBC (08/22/2022 11:15 AM EDT) Dispensed? Yes [facility] Blood 08/22/2022 11:1 5 AM EDT 08/22/2022 11:11 AM EDT Milagros Hernandez MD BLOOD BANK PRODUCT O RDERABLES Performing Organization Address City/[facility]/ZIP Co de Phone Number [facility] [place] [address] * POCT Glucose (08/22/2022 10:03 AM EDT) Glucose, POC 145 65 - 199 mg/dL [facility] Comment: Supplemental ranges: <140 mg/dL before meals <180 mg/dL all other times of the day Blood 08/22/2022 10:0 3 AM EDT 08/22/2022 10:03 AM EDT Milagros Hernandez MD POINT OF CARE TEST O RDERABLES Performing Organization Address [facility] Co de Phone Number [facility] [place] [address] * Type and Screen Validity (08/22/2022 9:00 AM EDT) T&S only valid at [facility] Comment:This Type and Screen result is only valid at the [facility] Blood 08/22/2022 9:00 AM EDT 08/22/2022 9:33 AM EDT Narrative Resulting Agency Comment Spec In Lab Reynaldo Avila MD BLOOD BANK LAB ORDYoli JONES Performing Organization Address [facility]/ZIP Co de Phone Number [facility] [place] [address] * ABORH Recheck Status (08/22/2022 9:00 AM EDT) ABORH Recheck Order Order Placed [facility] ABORH Type Recheck Complete [facility] Blood 08/22/2022 9:00 AM EDT 08/22/2022 9:33 AM EDT Narrative Resulting Agency Comment Spec In Lab Reynaldo Avila MD BLOOD BANK LAB ORDYoli JONES Performing Organization Address City/[facility]/ZIP Co de Phone Number [facility] [place] [address] * Antibody screen (08/22/2022 9:00 AM EDT) Ab Screen Interp Negative [facility] Expires at 2359 on: 08/25/2022 [facility] Blood 08/22/2022 9:00 AM EDT 08/22/2022 9:33 AM EDT Narrative Resulting Agency Comment Spec In Lab Reynaldo Avila MD BLOOD BANK LAB ORDYoli JONES [facility] [place] [address] * ABO/Rh Typing (08/22/2022 9:00 AM EDT) ABORH Type O Pos [facility] Blood 08/22/2022 9:00 AM EDT 08/22/2022 9:33 AM EDT Narrative Resulting Agency Comment Spec In Lab Reynaldo Avila MD BLOOD BANK LAB ORDYoli JONES [facility] [place] [address] * POCT Glucose (08/22/2022 8:00 AM EDT) Glucose, POC 156 65 - 199 mg/dL [facility] Comment: Supplemental ranges: <140 mg/dL before meals <180 mg/dL all other times of the day Blood 08/22/2022 8:00 AM EDT 08/22/2022 8:00 AM EDT Milagros Hernandez MD POINT OF CARE TEST O RDERABLES [facility] [place] [address] * POCT Glucose (08/22/2022 5:53 AM EDT) Glucose, POC 154 65 - 199 mg/dL [facility] Comment: Supplemental ranges: <140 mg/dL before meals <180 mg/dL all other times of the day Blood 08/22/2022 5:53 AM EDT 08/22/2022 5:53 AM EDT Milagros Hernandez MD POINT OF CARE TEST O RDERABLES Performing Organization Address [facility] Co de Phone Number [facility] [place] [address] * POCT Glucose (08/22/2022 3:40 AM EDT) Glucose, POC 182 65 - 199 mg/dL [facility] Comment: Supplemental ranges: <140 mg/dL before meals <180 mg/dL all other times of the day Blood 08/22/2022 3:40 AM EDT 08/22/2022 3:40 AM EDT Milagros Hernandez MD POINT OF CARE TEST O RDERABLES Performing Organization Address [facility] de Phone Number [facility] [place] [address] * (ABNORMAL) Differential, Automated (08/22/2022 3:39 AM EDT) Pathologist [facility] Neutrophil % 79.0 % [facility] Neutrophil Absolute 13.15(H) 1.70 - 6.10 x10(3)/mc L [facility] Lymph % 10.5 % [facility] Lymphocytes Abs 1.7 0.9 - 3.2 x10(3)/mc L [facility] Monocyte % 6.8 % [facility] Monocyte Abs 1.1(H) 0.3 - 0.9 x10(3)/mc L [facility] Eos % 0.9 % [facility] Eosinophils Abs 0.2 0.0 - 0.4 x10(3)/mc L [facility] Basophil % 0.2 % [facility] Baso Absolute 0.0 0.0 - 0.1 x10(3)/mc L [facility] Immature Gran % 2.60 % [facility] Comment: Immature granulocytes(IG's)percentage and absolute count will include metamyelocytes, myelocytes, and promyelocytes. Blood smears from CBCs yielding IG's will be scanned manually for concordance. If this scan disagrees with the automated IG or if promyelocytes are noted, a manual differential will be performed. Immature Gran Absolute 0.44(H) 0.00 - 0.04 x10(3)/ L [facility] Blood 08/22/2022 3:39 AM EDT 08/22/2022 3:47 AM EDT Narrative Resulting Agency Comment Spec In Lab Tyler Cobb MD HEMATOLOGY ORDERABLE S [facility] [place] [address] * (ABNORMAL) Hemogram (08/22/2022 3:39 AM EDT) White Blood Cell 16.6(H) 4.0 - 9.5 x10(3)/[facility] Red Blood Cell 3.54(L) 4.00 - 5.21 x10(6)/[facility] Hemoglobin 7.1(L) 11.7 - 15.5 g/dL [facility] Hematocrit 23.7(L) 35.7 - 45.8 % [facility] Mean Cell Volume 66.9(L) 82.6 - 94.4 fL [facility] Mean Cell Hemoglobin 20.1(L) 27.1 - 32.0 pg [facility] Mean Cell Hemoglobin Concentration 30.0(L) 31.7 - 35.0 g/dL [facility] Platelet 445(H) 145 - 357 x10(3)/mc L [facility] RDW Standard Deviation 68.9(H) 37.0 - 46.0 fL [facility] RDW coefficient of variation 31.0(H) 11.5 - 14.1 % [facility] Mean Platelet Volume 10.2 7.6 - 12.9 fL [facility] NRBC% auto 0.2 % [facility] NRBC Absolute 0.040(H) 0.000 - 0.000 x10(3)/ L [facility] Blood 08/22/2022 3:39 AM EDT 08/22/2022 3:47 AM EDT Narrative Resulting Agency Comment Spec In Lab Tyler Cobb MD HEMATOLOGY ORDERABLE S [facility] [place] [address] * (ABNORMAL) Basic Metabolic Panel (non-fasting) (08/22/2022 3:39 AM EDT) Glucose 191 65 - 199 mg/dL [facility] Comment:Diabetes: >=200 mg/d L plus symptoms Blood Urea Nitrogen 20(H) 8 - 18 mg/dL [facility] Creatinine 0.56(L) 0.70 - 1.20 mg/dL [facility] Sodium 145 135 - 145 mmol/L [facility] Potassium 4.1 3.5 - 5.0 mmol/L [facility] Comment: Please note: ??Patients with WBC >100,000 may have falsely elevated Potassium levels. ??For accurate Potassium quantification in these patients send serum separator tube (gold top) for subsequent determinations. ??Contact the Clinical Chemistry Laboratory if there are any questions. Chloride 111(H) 98 - 107 mmol/L [facility] Carbon Dioxide 27 22 - 31 mmol/L [facility] Anion Gap 7 5 - 15 mmol/L [facility] Calcium 8.7 8.5 - 10.5 mg/dL [facility] Est Glomerular Filtration Rate 103 >=60 mL/min/1. 73 m?? [facility] Comment: This patient's estimated GFR was [...] Pascal MD CHEMISTRY ORDERABLES Performing Organization Address [facility] Co de Phone Number [facility] [place] [address] * (ABNORMAL) Phosphorus (08/22/2022 3:39 AM EDT) Phosphorus 2.4(L) 2.5 - 4.5 mg/dL [facility] Blood 08/22/2022 3:39 AM EDT 08/22/2022 3:47 AM EDT Narrative Resulting Agency Comment Spec In Lab Richard Pascal MD CHEMISTRY ORDERABLES Performing Organization Address [facility] Phone Number [facility] [place] [address] * Magnesium (08/22/2022 3:39 AM EDT) Magnesium 0.86 0.69 - 1.07 mmol/L [facility] Blood 08/22/2022 3:39 AM EDT 08/22/2022 3:47 AM EDT Narrative Resulting Agency Comment Spec In Lab Richard Pascal MD CHEMISTRY ORDERABLES Performing Organization Address [facility] Phone Number [facility] [place] [address] * (ABNORMAL) POCT Glucose (08/22/2022 2:15 AM EDT) Glucose, POC 232(H) 65 - 199 mg/dL [facility] Comment: Supplemental ranges: <140 mg/dL before meals <180 mg/dL all other times of the day Blood 08/22/2022 2:15 AM EDT 08/22/2022 2:15 AM EDT Milagros Hernandez MD POINT OF CARE TEST O RDERABLES Performing Organization Address [facility] Co de Phone Number [facility] [place] [address] * (ABNORMAL) POCT Glucose (08/22/2022 12:43 AM EDT) Glucose, POC 233(H) 65 - 199 mg/dL [facility] Comment: Supplemental ranges: <140 mg/dL before meals <180 mg/dL all other times of the day Blood 08/22/2022 12:4 3 AM EDT 08/22/2022 12:43 AM EDT Milagros Hernandez MD POINT OF CARE TEST O RDERABLES [facility] [place] [address] * XR Pelvis (Generic) (08/22/2022 12:19 AM [...] who have questions please contact the health pediatric acute care unit nurse that requested your imaging first. ? Electronically signed by: Richard Billings MD, Radiology [place] ([phone]), at 08/22/2022 10:25 AM Narrative 08/22/2022 10:25 AM EDT EXAMINATION: XR [...] patients who have questions please contactthe health pediatric acute care unit nurse that requested your imaging first. Electronically signed by: Richard Billings MD, [facility]([phone]), at 08/22/2022 10:25 AM Milagros Hernandez MD [...] who have questions please contact the health pediatric acute care unit nurse that requested your imaging first. ? Electronically signed by: Viktor Cervantes MD, [facility] ([phone]), at 08/22/2022 12:43 PM Narrative 08/22/2022 12:43 [...] patients who have questions please contactthe health pediatric acute care unit nurse that requested your imaging first. Electronically signed by: Viktor Cervantes MD, [facility]([phone]), at 08/22/2022 12:43 PM Milagros Hernandez MD IMG DX ORDERABLES * (ABNORMAL) POCT Glucose (08/21/2022 10:26 PM EDT) [facility] Signature Glucose, POC 226(H) 65 - 199 mg/dL [facility] Comment: Supplemental ranges: <140 mg/dL before meals <180 mg/dL all other times of the day Blood 08/21/2022 10:2 6 PM EDT 08/21/2022 10:26 PM EDT Milagros Hernandez MD POINT OF CARE TEST O RDERAREYMUNDO [facility] [place] [address] * POCT Glucose (08/21/2022 7:48 PM EDT) Glucose, POC 123 65 - 199 mg/dL [facility] Comment: Supplemental ranges: <140 mg/dL before meals <180 mg/dL all other times of the day Blood 08/21/2022 7:48 PM EDT 08/21/2022 7:48 PM EDT Milagros Hernandez MD POINT OF CARE TEST O HUGHERAREYMUNDO Performing Organization Address [facility] Co de Phone Number [facility] [place] [address] * POCT Glucose (08/21/2022 5:59 PM EDT) Glucose, POC 138 65 - 199 mg/dL [facility] Comment: Supplemental ranges: <140 mg/dL before meals <180 mg/dL all other times of the day Blood 08/21/2022 5:59 PM EDT 08/21/2022 5:59 PM EDT Milagros Hernandez MD POINT OF CARE TEST O HUGHERAREYMUNDO Performing Organization Address City/[facility]/ZIP Co de Phone Number [facility] [place] [address] * POCT Glucose (08/21/2022 5:06 PM EDT) Glucose, POC 152 65 - 199 mg/dL [facility] Comment: Supplemental ranges: <140 mg/dL before meals <180 mg/dL all other times of the day Blood 08/21/2022 5:06 PM EDT 08/21/2022 5:06 PM EDT Milagros Hernandez MD POINT OF CARE TEST O RDERABLES Performing Organization Address City/[facility]/[place] [address] * Cell Count, Bronchoalveolar Lavage (08/21/2022 4:50 PM EDT) Color BAL White [facility] Appearance, BAL Hazy [facility] NUC, BAL Count 422 mcL [facility] Seg BAL 87 % [facility] Lymph, BAL 10 % [facility] Macrophage BAL 2 % [facility] Eos, BAL 1 % [facility] Total Cells, BAL 200 Cells [facility] Bronchial Alveolar Lavage 08/21/2022 4:50 PM EDT 08/21/2022 5:37 PM EDT Narrative Resulting Agency Comment Spec In Lab Milagros Hernandez MD BODY FLUIDS AND STOO LS ORDERABLES Performing Organization Address [facility] Co de Phone Number [facility] [place] [address] * Calcofluor White Stain (08/21/2022 4:50 PM EDT) Calcofluor Stain Calcofluor White Preparation: Negative [facility] Bronchial Alveolar Lavage 08/21/2022 4:50 PM EDT 08/21/2022 5:37 PM EDT Comment:JACQUI Narrative Resulting Agency Comment Spec In Lab Reynaldo Avila MD MICROBIOLOGY - GENE RAL ORDERABLES Performing Organization Address [facility] [place] [address] * (ABNORMAL) Fungus culture (08/21/2022 4:50 PM EDT) Fungus Culture Rare Jacky albicans(A) [facility] Organism Jacky albicans(A) [facility] Bronchial Alveolar Lavage 08/21/2022 4:50 PM EDT 08/21/2022 5:37 PM EDT Comment:JACQUI Narrative Resulting Agency Comment Spec In Lab Reynaldo Avila MD MICROBIOLOGY - GENE RAL ORDERABLES Performing Organization Address [facility] Co de Phone Number [facility] [place] [address] * AFB culture Bronchial Alveolar Lavage (08/21/2022 4:50 PM EDT) Acid Fast Bacilli Culture No Acid Fast Bacilli isolated If active tuberculosis is suspected, the patient should be on [employer] PRECAUTIONS. Call Infection Prevention for assistance if needed. [facility] Acid Fast Stain No Acid Fast Bacilli seen [facility] Bronchial Alveolar Lavage 08/21/2022 4:50 PM EDT 08/21/2022 5:37 PM EDT Comment:JACQUI Narrative Resulting Agency Comment Spec In Lab Milagros Hernandez MD MICROBIOLOGY - GENER AL ORDERABLES Performing Organization Address [facility] Co de Phone Number [facility] [place] [address] * Lower Respiratory Culture Bronchial Alveolar Lavage (08/21/2022 4:50 PM EDT) Pathologist [facility] Lower Respiratory Culture Rare mixed bacterial morphotypes suggestive of normal upper respiratory wiley [facility] Gram Stain Few Neutrophils seen No squamous epithelial cells seen No microorganisms seen. [facility] Bronchial Alveolar Lavage 08/21/2022 4:50 PM EDT 08/21/2022 5:37 PM EDT Comment:JACQUI Narrative Resulting Agency Comment Spec In Lab Milagros Hernandez MD MICROBIOLOGY - GENER AL ORDERABLES Performing Organization Address [facility] Co de Phone Number [facility] [place] [address] * Cell Count, Bronchoalveolar Lavage (08/21/2022 4:45 PM EDT) Color BAL White [facility] Appearance, BAL Cloudy [facility] NUC, BAL Count 1,471 mcL [facility] Seg BAL 81 % [facility] Lymph, BAL 17 % [facility] Macrophage BAL 2 % [facility] Total Cells, BAL 200 Cells [facility] Bronchial Alveolar Lavage 08/21/2022 4:45 PM EDT 08/21/2022 5:36 PM EDT Narrative Resulting Agency Comment Spec In Lab Aileen Mayorga MD BODY FLUIDS AND STOO LS ORDERABLES Performing Organization Address City/[facility]/ZIP Co de Phone Number [facility] [place] [address] * Calcofluor White Stain (08/21/2022 4:45 PM EDT) Calcofluor Stain Calcofluor White Preparation: Negative [facility] Bronchial Alveolar Lavage 08/21/2022 4:45 PM EDT 08/21/2022 5:39 PM EDT Narrative Resulting Agency Comment Spec In Lab Reynaldo Avila MD MICROBIOLOGY - GENE RAL ORDERABLES Performing Organization Address City/[facility]/ZIP Co de Phone Number [facility] [place] [address] * (ABNORMAL) Fungus culture (08/21/2022 4:45 PM EDT) Fungus Culture Rare Jacky albicans(A) [facility] Organism Jacky albicans(A) [facility] Bronchial Alveolar Lavage 08/21/2022 4:45 PM EDT 08/21/2022 5:39 PM EDT Narrative Resulting Agency Comment Spec In Lab Reynaldo Avila MD MICROBIOLOGY - GENE RAL ORDERABLES Performing Organization Address City/[facility]/ZIP Co de Phone Number [facility] [place] [address] * AFB culture Bronchial Alveolar Lavage (08/21/2022 4:45 PM EDT) Acid Fast Bacilli Culture No Acid Fast Bacilli isolated If active tuberculosis is suspected, the patient should be on [employer] PRECAUTIONS. Call Infection Prevention for assistance if needed. [facility] Acid Fast Stain No Acid Fast Bacilli seen [facility] Bronchial Alveolar Lavage 08/21/2022 4:45 PM EDT 08/21/2022 5:39 PM EDT Narrative Resulting Agency Comment Spec In Lab Milagros Hernandze MD MICROBIOLOGY - GENER AL ORDERABLES Performing Organization Address City/[facility] Co de Phone Number [facility] [place] [address] * Lower Respiratory Culture Bronchial Alveolar Lavage (08/21/2022 4:45 PM EDT) Lower Respiratory Culture Rare mixed bacterial morphotypes suggestive of normal upper respiratory wiley [facility] Gram Stain Moderate Neutrophils seen No squamous epithelial cells seen No microorganisms seen. [facility] Bronchial Alveolar Lavage 08/21/2022 4:45 PM EDT 08/21/2022 5:39 PM EDT Narrative Resulting Agency Comment Spec In Lab Milagros Hernandez MD MICROBIOLOGY - GENER AL ORDERABLES Performing Organization Address [facility] Co de Phone Number [facility] [place] [address] * Potassium (08/21/2022 3:45 PM EDT) Potassium 3.9 3.5 - 5.0 mmol/L [facility] Comment: Please note: ??Patients with WBC [...] Pascal MD CHEMISTRY ORDERABLES Performing Organization Address City/[facility] Co de Phone Number [facility] [place] [address] * POCT Glucose (08/21/2022 3:24 PM EDT) Glucose, POC 148 65 - 199 mg/dL [facility] Comment: Supplemental ranges: <140 mg/dL before meals <180 mg/dL all other times of the day Blood 08/21/2022 3:24 PM EDT 08/21/2022 3:24 PM EDT Milagros Hernandez MD POINT OF CARE TEST O RDERABLES [facility] [place] [address] * IR Ultrasound in IR (08/21/2022 3:09 [...] Glucose, POC 191 65 - 199 mg/dL [facility] Comment: Supplemental ranges: <140 mg/dL before meals <180 mg/dL all other times of the day Blood 08/21/2022 1:34 PM EDT 08/21/2022 1:34 PM EDT Milagros Hernandez MD POINT OF CARE TEST O RDERABLES Performing Organization Address [facility] Co de Phone Number [facility] [place] [address] * POCT Glucose (08/21/2022 12:58 PM EDT) Glucose, POC 196 65 - 199 mg/dL [facility] Comment: Supplemental ranges: <140 mg/dL before meals <180 mg/dL all other times of the day Blood 08/21/2022 12:5 8 PM EDT 08/21/2022 12:58 PM EDT Milagros Hernandez MD POINT OF CARE TEST O RDERAREYMUNDO Performing Organization Address [facility] Co de Phone Number [facility] [place] [address] * (ABNORMAL) CRP, acute inflammation (08/21/2022 12:00 PM EDT) C-Reactive Protein 19.4(H) <=4.9 mg/L [facility] Blood 08/21/2022 12:0 0 PM EDT 08/21/2022 12:24 PM EDT Narrative Resulting Agency Comment Spec In Lab Milagros Hernandez MD CHEMISTRY ORDERABLES Performing Organization Address [facility] Co de Phone Number [facility] [place] [address] * (ABNORMAL) Sedimentation rate (08/21/2022 12:00 PM EDT) Sedimentation Rate Automated >119(H) 2 - 39 mm/hr [facility] Comment: Effective April 19, 2019 new capillary photometric technology has resulted in a change in reference ranges. It is recommended that each ESR result be reviewed with its own age appropriate reference range. Blood 08/21/2022 12:0 0 PM EDT 08/21/2022 12:24 PM EDT Narrative Resulting Agency Comment Spec In Lab Milagros Hernandez MD HEMATOLOGY ORDERABLE S Performing Organization Address City/[facility]/ZIP Co de Phone Number [facility] [place] [address] * POCT Glucose (08/21/2022 11:56 AM EDT) [facility] Glucose, POC 182 65 - 199 mg/dL [facility] Comment: Supplemental ranges: <140 mg/dL before meals <180 mg/dL all other times of the day Blood 08/21/2022 11:5 6 AM EDT 08/21/2022 11:56 AM EDT Milagros Hernandez MD POINT OF CARE TEST O RDERABLES Performing Organization Address [facility] Co de Phone Number [facility] [place] [address] * Potassium (08/21/2022 10:00 AM EDT) [facility] Potassium 4.4 3.5 - 5.0 mmol/L [facility] Comment: Please note: ??Patients with WBC [...] Cobb MD CHEMISTRY ORDERABLES Performing Organization Address [facility] Co de Phone Number [facility] [place] [address] * Ferritin (08/21/2022 10:00 AM EDT) [facility] Ferritin 85 30 - 400 ng/mL [facility] Comment: Pediatric reference ranges not verified at [facility], interpret with caution. Reference ranges for females greater than 50 years of age approach values for men, i.e., 30-400 ng/mL. Blood 08/21/2022 10:0 0 AM EDT 08/21/2022 10:12 AM EDT Narrative Resulting Agency Comment Spec In Lab Carlos Terry MD CHEMISTRY ORDERABLES Performing Organization Address City/[facility]/ZIP Co de Phone Number [facility] [place] [address] * (ABNORMAL) Iron and TIBC (08/21/2022 10:00 AM EDT) Iron 25(L) 30 - 150 mcg/dL [facility] TIBC 203(L) 250 - 450 mcg/dL [facility] Iron Saturation 12(L) 20 - 50 % [facility] Blood 08/21/2022 10:0 0 AM EDT 08/21/2022 10:12 AM EDT Narrative Resulting Agency Comment Spec In Lab Carlos Terry MD CHEMISTRY ORDERABLES Performing Organization Address [facility] Co de Phone Number [facility] [place] [address] * Histoplasma Antigen, Urine (08/21/2022 10:00 AM EDT) U Histoplasma Ag (MAY) Not Detected Not Detected [facility] Comment: No Histoplasma antigen detected. False negative results may occur. ??Repeat testing on a new specimen should be considered if clinically indicated. Test Performed by: [facility] [address] [place] [address] Process Safety Manager: Rock Leone M.D. Ph.D.; CLIA# [id number] U Histo Ag Value (MAY) Not Detected ng/mL [facility] Comment: ADDITIONAL INFORMATION This test has been modified from the middle school professional's instructions. Its performance characteristics were determined by [facility] in a manner consistent with CLIA requirements. This test has not been cleared or approved by the U.S. Food and Drug Administration. Test Performed by: [facility] - [address] [address] Process Safety Manager: Rock Leone M.D. Ph.D.; CLIA# [id number] Urine 08/21/2022 10:0 0 AM EDT 08/21/2022 1:15 PM EDT Narrative Resulting Agency Comment Spec In Lab Carlos Terry MD LAB SEND OUT ORDERAB LES Performing Organization Address [facility]/ZIP Co de Phone Number [facility] [place] [address] * POCT Glucose (08/21/2022 9:57 AM EDT) Glucose, POC 141 65 - 199 mg/dL [facility] Comment: Supplemental ranges: <140 mg/dL before meals <180 mg/dL all other times of the day Blood 08/21/2022 9:57 AM EDT 08/21/2022 9:57 AM EDT Milagros Hernandez MD POINT OF CARE TEST O RDERABLES Performing Organization Address [facility] Co de Phone Number [facility] [place] [address] * Aspergillus Antigen (08/21/2022 8:30 AM EDT) Aspergillus Ag (SEPTEMBER) <0.500 <0.5 Index [facility] Comment: ADDITIONAL INFORMATION This is a qualitative test and the resulted index value is not indicative of disease severity. ??Serial testing is recommended for patients at high risk for invasive aspergillosis. This assay was performed using the FDA-cleared Bio-AtH[employer] Platelia Aspergillus Galactomannan EIA. Test Performed by: [facility] - [address] [address] Process Safety Manager: Rock Leone M.D. Ph.D.; CLIA# [id number] Blood 08/21/2022 8:30 AM EDT 08/21/2022 1:15 PM EDT Narrative Resulting Agency Comment Spec In Lab Carlos Terry MD LAB SEND OUT ORDERAB LES Performing Organization Address City/[facility]/ZIP Co de Phone Number [facility] [place] [address] * POCT Glucose (08/21/2022 8:28 AM EDT) Glucose, POC 118 65 - 199 mg/dL [facility] Comment: Supplemental ranges: <140 mg/dL before meals <180 mg/dL all other times of the day Blood 08/21/2022 8:28 AM EDT 08/21/2022 8:28 AM EDT Carlos Terry MD POINT OF CARE TEST O RDERABLES Performing Organization Address [facility] Co de Phone Number [facility] [place] [address] * (ABNORMAL) Fungitell (1,5-Tind-D-Glucan) (08/21/2022 8:00 AM EDT) Fungitell Quantitative Value (SEPTEMBER) >500(A) <60 pg/mL pg/mL [facility] Comment: Test Performed by: [place] [address] Process Safety Manager: Rock Leone M.D. Ph.D.; CLIA# [id number] Fungitell Qualitative Result (SEPTEMBER) Positive (A) Negative [facility] Comment: (1, 3) Jvrt-X-Knvjmc detected. A single positive result should be [...] produce very low levels of (1, 3) Ojjy-F-Oeokxa (BDG) and the Mucorales (e.g., Lichthemia, Mucor and Rhizopus), which are not known to produce BDG. Additionally, the yeast phase of Blastomyces dermatitidis produces little BDG and may not be detected by this assay. ADDITIONAL INFORMATION This assay was performed using the FDA-cleared Fungitell Assay ([facility], [place], [place], [place]), a kinetic DALILA based on modification of the Limulus Amebocyte Lysate pathway. Test Performed by: [place] [address] Process Safety Manager: Rock Leone M.D. Ph.D.; CLIA# [id number] Blood 08/21/2022 8:00 AM EDT 08/21/2022 1:15 PM EDT Narrative Resulting Agency Comment Spec In Lab Carlos Terry MD LAB SEND OUT ORDERAB LES Performing Organization Address City/[facility] Co de Phone Number [facility] [place] [address] * POCT Glucose (08/21/2022 7:50 AM EDT) Glucose, POC 130 65 - 199 mg/dL [facility] Comment: Supplemental ranges: <140 mg/dL before meals <180 mg/dL all other times of the day Blood 08/21/2022 7:50 AM EDT 08/21/2022 7:50 AM EDT Carlos Terry MD POINT OF CARE TEST O RDERABLES Performing Organization Address City/State/[facility] Co de Phone Number [facility] [place] [address] * POCT Glucose (08/21/2022 6:06 AM EDT) Glucose, POC 141 65 - 199 mg/dL [facility] Comment: Supplemental ranges: <140 mg/dL before meals <180 mg/dL all other times of the day Blood 08/21/2022 6:06 AM EDT 08/21/2022 6:06 AM EDT Carlos Terry MD POINT OF CARE TEST O RDERABLES Performing Organization Address [facility] Co de Phone Number [facility] [place] [address] * POCT Glucose (08/21/2022 3:48 AM EDT) Glucose, POC 187 65 - 199 mg/dL [facility] Comment: Supplemental ranges: <140 mg/dL before meals <180 mg/dL all other times of the day Blood 08/21/2022 3:48 AM EDT 08/21/2022 3:48 AM EDT Carlos Terry MD POINT OF CARE TEST O RDERABLES Performing Organization Address [facility] Co de Phone Number [facility] [place] [address] * (ABNORMAL) Differential, Automated (08/21/2022 3:46 AM EDT) Neutrophil % 79.8 % [facility] Neutrophil Absolute 16.69(H) 1.70 - 6.10 x10(3)/mc L [facility] Lymph % 9.2 % [facility] Lymphocytes Abs 1.9 0.9 - 3.2 x10(3)/mc L [facility] Monocyte % 6.2 % [facility] Monocyte Abs 1.3(H) 0.3 - 0.9 x10(3)/mc L [facility] Eos % 0.3 % [facility] Eosinophils Abs 0.1 0.0 - 0.4 x10(3)/mc L [facility] Basophil % 0.2 % [facility] Baso Absolute 0.0 0.0 - 0.1 x10(3)/ L [facility] Immature Gran % 4.30 % [facility] Comment: Immature granulocytes(IG's)percentage and absolute count will include metamyelocytes, myelocytes, and promyelocytes. Blood smears from CBCs yielding IG's will be scanned manually for concordance. If this scan disagrees with the automated IG or if promyelocytes are noted, a manual differential will be performed. Immature Gran Absolute 0.89(H) 0.00 - 0.04 x10(3)/[facility] Blood 08/21/2022 3:46 AM EDT 08/21/2022 3:58 AM EDT Narrative Resulting Agency Comment Spec In Lab Tyler Cobb MD HEMATOLOGY ORDERABLE S Performing Organization Address City/State/[facility] Co de Phone Number [facility] [place] [address] * (ABNORMAL) Hemogram (08/21/2022 3:46 AM EDT) White Blood Cell 20.9(H) 4.0 - 9.5 x10(3)/ L [facility] Red Blood Cell 3.68(L) 4.00 - 5.21 x10(6)/[facility] Hemoglobin 7.4(L) 11.7 - 15.5 g/dL [facility] Hematocrit 24.2(L) 35.7 - 45.8 % [facility] Mean Cell Volume 65.8(L) 82.6 - 94.4 fL [facility] Mean Cell Hemoglobin 20.1(L) 27.1 - 32.0 pg [facility] Mean Cell Hemoglobin Concentration 30.6(L) 31.7 - 35.0 g/dL [facility] Platelet 381(H) 145 - 357 x10(3)/[facility] RDW Standard Deviation 67.2(H) 37.0 - 46.0 fL [facility] RDW coefficient of variation 30.4(H) 11.5 - 14.1 % [facility] Mean Platelet Volume 10.1 7.6 - 12.9 fL [facility] NRBC% auto 0.5 % [facility] NRBC Absolute 0.110(H) 0.000 - 0.000 x10(3)/mc L [facility] Blood 08/21/2022 3:46 AM EDT 08/21/2022 3:58 AM EDT Narrative Resulting Agency Comment Spec In Lab Tyler Cobb MD HEMATOLOGY ORDERABLE S [facility] [address] [place] [address] * (ABNORMAL) Basic Metabolic Panel (non-fasting) (08/21/2022 3:46 AM EDT) Glucose 188 65 - 199 mg/dL [facility] Comment:Diabetes: >=200 mg/d L plus symptoms Blood Urea Nitrogen 22(H) 8 - 18 mg/dL [facility] Creatinine 0.60(L) 0.70 - 1.20 mg/dL [facility] Sodium 145 135 - 145 mmol/L [facility] Potassium 3.7 3.5 - 5.0 mmol/L [facility] Comment: Please note: ??Patients with WBC >100,000 may have falsely elevated Potassium levels. ??For accurate Potassium quantification in these patients send serum separator tube (gold top) for subsequent determinations. ??Contact the Clinical Chemistry Laboratory if there are any questions. Chloride 107 98 - 107 mmol/L [facility] Carbon Dioxide 31 22 - 31 mmol/L [facility] Anion Gap 7 5 - 15 mmol/L [facility] Calcium 8.7 8.5 - 10.5 mg/dL [facility] Est Glomerular Filtration Rate 101 >=60 mL/min/1. 73 m?? [facility] Comment: This patient's estimated GFR was [...] Pascal MD CHEMISTRY ORDERABLES Performing Organization Address City/[facility]/ZIP Co de Phone Number [facility] [place] [address] * (ABNORMAL) Phosphorus (08/21/2022 3:46 AM EDT) Phosphorus 2.4(L) 2.5 - 4.5 mg/dL [facility] Blood 08/21/2022 3:46 AM EDT 08/21/2022 3:58 AM EDT Narrative Resulting Agency Comment Spec In Lab Richard Pascal MD CHEMISTRY ORDERABLES Performing Organization Address [facility] Co de Phone Number [facility] [place] [address] * Magnesium (08/21/2022 3:46 AM EDT) Magnesium 0.87 0.69 - 1.07 mmol/L [facility] Blood 08/21/2022 3:46 AM EDT 08/21/2022 3:58 AM EDT Narrative Resulting Agency Comment Spec In Lab Richard Pascal MD CHEMISTRY ORDERABLES Performing Organization Address [facility] Co de Phone Number [facility] [place] [address] * (ABNORMAL) Lipase (08/21/2022 3:46 AM EDT) Lipase 178(H) 0 - 60 unit/L [facility] Blood 08/21/2022 3:46 AM EDT 08/21/2022 3:58 AM EDT Narrative Resulting Agency Comment Spec In Lab Carlos Terry MD CHEMISTRY ORDERABLES Performing Organization Address [facility] Co de Phone Number [facility] [place] [address] * POCT Glucose (08/21/2022 1:57 AM EDT) Glucose, POC 167 65 - 199 mg/dL [facility] Comment: Supplemental ranges: <140 mg/dL before meals <180 mg/dL all other times of the day Blood 08/21/2022 1:57 AM EDT 08/21/2022 1:57 AM EDT Carlos Terry MD POINT OF CARE TEST O RDERABLES Performing Organization Address [facility] Co de Phone Number [facility] [place] [address] * (ABNORMAL) POCT Glucose (08/20/2022 11:55 PM EDT) Glucose, POC 221(H) 65 - 199 mg/dL [facility] Comment: Supplemental ranges: <140 mg/dL before meals <180 mg/dL all other times of the day Blood 08/20/2022 11:5 5 PM EDT 08/20/2022 11:55 PM EDT Carlos Terry MD POINT OF CARE TEST O RDERABLES Performing Organization Address [facility] Co de Phone Number [facility] [place] [address] * CT Chest w Contrast (08/20/2022 11:04 [...] who have questions please contact the health pediatric acute care unit nurse that requested your imaging first. ? Electronically signed by: Jagdeep Lee MD, [facility] ([phone]), at 08/21/2022 6:56 AM Narrative 08/21/2022 6:56 AM EDT EXAMINATION: CT [...] the diaphragm with tip not included the [id number]. There is some wall thickening of the [...] the duodenum, not fully included in the hryjt-ll-move. Skeletal structures: No acute osseous findings. No [...] below the diaphragmwith tip not included the [id number]. There is some wall thickening of theesophagus. [...] portion the duodenum,not fully included in the bbwgg-yc-bpxl. Skeletal structures: No acute osseous findings. No [...] patients who have questions please contactthe health pediatric acute care unit nurse that requested your imaging first. Carlos Terry [...] who have questions please contact the health pediatric acute care unit nurse that requested your imaging first. ? Electronically signed by: Aicha Chowdhury MD, [facility] ([phone]), at 08/21/2022 9:34 AM Narrative 08/21/2022 9:34 [...] hip performed after administration of 110 mL [id number]. Coronal and sagittal reformats were obtained. COMPARISON: [...] 1.8 cm (series 9, image 251 and [id number], image 46), without rim enhancement to suggest [...] patients who have questions please contactthe health pediatric acute care unit nurse that requested your imaging first. Carlos Terry MD IMG CT ORDERABLES * POCT Glucose (08/20/2022 9:54 PM EDT) Glucose, POC 195 65 - 199 mg/dL [facility] Comment: Supplemental ranges: <140 mg/dL before meals <180 mg/dL all other times of the day Blood 08/20/2022 9:54 PM EDT 08/20/2022 9:54 PM EDT Carlos Terry MD POINT OF CARE TEST O RDERAREYMUNDO Performing Organization Address City/[facility] Co de Phone Number [facility] [place] [address] * POCT Glucose (08/20/2022 8:46 PM EDT) Glucose, POC 118 65 - 199 mg/dL [facility] Comment: Supplemental ranges: <140 mg/dL before meals <180 mg/dL all other times of the day Blood 08/20/2022 8:46 PM EDT 08/20/2022 8:46 PM EDT Carlos Terry MD POINT OF CARE TEST O RDERABLES Performing Organization Address City/[facility]/ZIP Co de Phone Number [facility] [place] [address] * POCT Glucose (08/20/2022 6:21 PM EDT) Glucose, POC 164 65 - 199 mg/dL [facility] Comment: Supplemental ranges: <140 mg/dL before meals <180 mg/dL all other times of the day Blood 08/20/2022 6:21 PM EDT 08/20/2022 6:21 PM EDT Carlos Terry MD POINT OF CARE TEST O RDERAREYMUNDO [facility] [place] [address] * POCT Glucose (08/20/2022 4:27 PM EDT) Glucose, POC 180 65 - 199 mg/dL [facility] Comment: Supplemental ranges: <140 mg/dL before meals <180 mg/dL all other times of the day Blood 08/20/2022 4:27 PM EDT 08/20/2022 4:27 PM EDT Carlos Terry MD POINT OF CARE TEST O RDERABLES Performing Organization Address [facility] Co de Phone Number [facility] [place] [address] * POCT Glucose (08/20/2022 2:11 PM EDT) Glucose, POC 150 65 - 199 mg/dL [facility] Comment: Supplemental ranges: <140 mg/dL before meals <180 mg/dL all other times of the day Blood 08/20/2022 2:11 PM EDT 08/20/2022 2:11 PM EDT Carlos Terry MD POINT OF CARE TEST O RDERAREYMUNDO Performing Organization Address [facility] Co de Phone Number [facility] [place] [address] * (ABNORMAL) Hepatic Function Panel (08/20/2022 2:00 PM EDT) Protein, Total 5.6(L) 6.1 - 8.0 g/dL [facility] Albumin 2.5(L) 3.2 - 5.2 g/dL [facility] Aspartate Aminotransferase 39(H) 0 - 30 unit/L [facility] Alanine Aminotransferase 20 0 - 30 unit/L [facility] Alkaline Phosphatase 213(H) 35 - 105 unit/L [facility] Bilirubin, Total <0.2(L) 0.2 - 1.3 mg/dL [facility] Bilirubin, Direct 0.1 0.0 - 0.3 mg/dL [facility] Blood 08/20/2022 2:00 PM EDT 08/20/2022 2:20 PM EDT Narrative Resulting Agency Comment Spec In Lab Carlos Terry MD CHEMISTRY ORDERABLES Performing Organization Address City/[facility]/ZIP Co de Phone Number [facility] [place] [address] * TSH [place] (08/20/2022 2:00 PM EDT) Thyroid Stimulating Hormone 1.90 0.27 - 4.20 mcIU/mL [facility] Comment: Reference Interval (mcIU/mL): Females: ??First Trimester: 0.23-3.88 ??Second Trimester: 0.22-3.90 ??Third Trimester: 0.44-4.66 Blood 08/20/2022 2:00 PM EDT 08/20/2022 2:20 PM EDT Narrative Resulting Agency Comment Spec In Lab Carlos Terry MD CHEMISTRY ORDERABLES Performing Organization Address [facility]/ZIP Co de Phone Number [facility] [place] [address] * POCT Glucose (08/20/2022 12:13 PM EDT) Glucose, POC 163 65 - 199 mg/dL [facility] Comment: Supplemental ranges: <140 mg/dL before meals <180 mg/dL all other times of the day Blood 08/20/2022 12:1 3 PM EDT 08/20/2022 12:13 PM EDT Carlos Terry MD POINT OF CARE TEST O RDERABLES Performing Organization Address City/[facility]/ZIP Co de Phone Number [facility] [place] [address] * POCT Glucose (08/20/2022 10:05 AM EDT) Glucose, POC 196 65 - 199 mg/dL [facility] Comment: Supplemental ranges: <140 mg/dL before meals <180 mg/dL all other times of the day Blood 08/20/2022 10:0 5 AM EDT 08/20/2022 10:05 AM EDT Carlos Terry MD POINT OF CARE TEST O RDERAREYMUNDO Performing Organization Address City/[facility] Co de Phone Number [facility] [place] [address] * (ABNORMAL) POCT Glucose (08/20/2022 7:26 AM EDT) Glucose, POC 233(H) 65 - 199 mg/dL [facility] Comment: Supplemental ranges: <140 mg/dL before meals <180 mg/dL all other times of the day Blood 08/20/2022 7:26 AM EDT 08/20/2022 7:26 AM EDT Carlos Terry MD POINT OF CARE TEST O RDERAREYMUNDO Performing Organization Address [facility] Co de Phone Number [facility] [place] [address] * POCT Glucose (08/20/2022 6:31 AM EDT) Glucose, POC 190 65 - 199 mg/dL [facility] Comment: Supplemental ranges: <140 mg/dL before meals <180 mg/dL all other times of the day Blood 08/20/2022 6:31 AM EDT 08/20/2022 6:31 AM EDT Carlos Terry MD POINT OF CARE TEST O RDERAREYMUNDO Performing Organization Address [facility] Co de Phone Number [facility] [place] [address] * (ABNORMAL) BLOOD GAS 2 ARTERIAL (08/20/2022 5:41 AM EDT) pH, Arterial 7.56(H) 7.35 - 7.45 [facility] PCO2, Arterial 31(L) 35 - 45 mmHg [facility] PO2, Arterial 92 85 - 104 mmHg [facility] Bicarbonate, Arterial 27.3(H) 20.0 - 26.0 mmol/L [facility] Base Excess, Arterial 5.0(H) -3.0 - 3.0 mmol/L [facility] Hgb Blood Gas 8.5(L) 11.7 - 15.5 g/dL [facility] Oxyhemoglobin, Arterial 96.0 94.0 - 97.0 % [facility] Carboxyhemoglob in, Arterial 0.3 % [facility] Comment: Nonsmokers: 0.5-1.5% COHB Smokers: Variable, but usually less than 10% Toxic: 20-30% COHB Lethal: Greater than 60% COHB Methemoglobin, Arterial 0.9 <=1.5 % [facility] Na Whole Blood 141 135 - 145 mmol/L [facility] K Whole Blood 3.6 3.5 - 5.0 mmol/L [facility] Comment: Please note: Patients with WBC >100,000 may have falsely elevated Potassium levels. Contact the Clinical Chemistry Laboratory if there are any questions. ICa Whole Blood 1.15 1.15 - 1.33 mmol/L [facility] Comment: Note: ??Total bilirubin higher than 20 mg/dL may lead to falsely low ionized calcium. CL Whole Blood 110(H) 98 - 107 mmol/L [facility] Gluc Whole Bld 160 65 - 199 mg/dL [facility] Comment:Diabetes: >=200 mg/d L plus symptoms. Lactate WB 1.6 0.5 - 2.2 mmol/L [facility] FIO2 Art 30 % [facility] PF Ratio Art 307 [facility] HO SPITAL LABORATORY Blood 08/20/2022 5:41 AM EDT 08/20/2022 5:41 AM EDT Carlos Terry MD POINT OF CARE TEST O RDERABLES [facility] [place] [address] * POCT Glucose (08/20/2022 4:29 AM EDT) Glucose, POC 114 65 - 199 mg/dL [facility] Comment: Supplemental ranges: <140 mg/dL before meals <180 mg/dL all other times of the day Blood 08/20/2022 4:29 AM EDT 08/20/2022 4:29 AM EDT Carlos Terry MD POINT OF CARE TEST O RDERABLES Performing Organization Address City/[facility]/ZIP Co de Phone Number [facility] [place] [address] * POCT Glucose (08/20/2022 3:53 AM EDT) Glucose, POC 114 65 - 199 mg/dL [facility] Comment: Supplemental ranges: <140 mg/dL before meals <180 mg/dL all other times of the day Blood 08/20/2022 3:53 AM EDT 08/20/2022 3:53 AM EDT Carlos Terry MD POINT OF CARE TEST O RDERABLES Performing Organization Address [facility] Co de Phone Number [facility] [place] [address] * POCT Glucose (08/20/2022 2:05 AM EDT) Glucose, POC 140 65 - 199 mg/dL [facility] Comment: Supplemental ranges: <140 mg/dL before meals <180 mg/dL all other times of the day Blood 08/20/2022 2:05 AM EDT 08/20/2022 2:05 AM EDT Carlos Terry MD POINT OF CARE TEST O RDERABLES Performing Organization Address City/[facility] Co de Phone Number [facility] [place] [address] * Scan, Peripheral Blood (08/20/2022 12:30 AM EDT) Plat estimate Normal [facility] H OSPITAL [facility]OR[facility] RBC Morphology Abnormal [facility] Macrocyte 1-5 /HPF [facility] Microcyte gtr than 10 /HPF [facility] HOS PITAL [facility]OR[facility] Hypochromia Moderate [facility] HOS PITAL [facility] Polychromasia Present >5/HPF [facility] OSPITAL LABORATORY Ovalocytes 1-5 /HPF [facility] HOSP ITAL LABORATORY Target Cells 1-5 /HPF [facility] SPITAL [facility]OR[facility] Blood 08/20/2022 12:3 0 AM EDT 08/20/2022 12:32 AM EDT Narrative Resulting Agency Comment Spec In Lab Tyler Cobb MD HEMATOLOGY ORDERABLE S [facility] [place] [address] * (ABNORMAL) Differential, Automated (08/20/2022 12:30 AM EDT) Neutrophil % 77.6 % [facility] SPITAL [facility] Neutrophil Absolute 21.72(H) 1.70 - 6.10 x10(3)/mc L [facility] Lymph % 8.3 % [facility] Lymphocytes Abs 2.3 0.9 - 3.2 x10(3)/mc L [facility] Monocyte % 6.5 % [facility] Monocyte Abs 1.8(H) 0.3 - 0.9 x10(3)/mc L [facility] Eos % 0.2 % [facility] Eosinophils Abs 0.0 0.0 - 0.4 x10(3)/mc L [facility] Basophil % 0.3 % [facility] Baso Absolute 0.1 0.0 - 0.1 x10(3)/mc L [facility] Immature Gran % 7.10 % [facility] Comment: Immature granulocytes(IG's)percentage and absolute count will include metamyelocytes, myelocytes, and promyelocytes. Blood smears from CBCs yielding IG's will be scanned manually for concordance. If this scan disagrees with the automated IG or if promyelocytes are noted, a manual differential will be performed. Immature Gran Absolute 2.00(H) 0.00 - 0.04 x10(3)/mc L [facility] Blood 08/20/2022 12:3 0 AM EDT 08/20/2022 12:32 AM EDT Narrative Resulting Agency Comment Spec In Lab Tyler Cobb MD HEMATOLOGY ORDERABLE S [facility] [place] [address] * (ABNORMAL) Hemogram (08/20/2022 12:30 AM EDT) White Blood Cell 28.0(H) 4.0 - 9.5 x10(3)/mc L [facility] Red Blood Cell 4.08 4.00 - 5.21 x10(6)/mc L [facility] Hemoglobin 8.2(L) 11.7 - 15.5 g/dL [facility] Hematocrit 26.4(L) 35.7 - 45.8 % [facility] Mean Cell Volume 64.7(L) 82.6 - 94.4 fL [facility] Mean Cell Hemoglobin 20.1(L) 27.1 - 32.0 pg [facility] Mean Cell Hemoglobin Concentration 31.1(L) 31.7 - 35.0 g/dL [facility] Platelet 351 145 - 357 x10(3)/mc L [facility] RDW Standard Deviation 63.9(H) 37.0 - 46.0 fL [facility] RDW coefficient of variation 29.8(H) 11.5 - 14.1 % [facility] Mean Platelet Volume 10.1 7.6 - 12.9 fL [facility] NRBC% auto 0.8 % [facility] ITAL LABORAT[facility] NRBC Absolute 0.230(H) 0.000 - 0.000 x10(3)/mc L [facility] Blood 08/20/2022 12:3 0 AM EDT 08/20/2022 12:32 AM EDT Narrative Resulting Agency Comment Spec In Lab Tyler Cobb MD HEMATOLOGY ORDERABLE S [facility] [place] [address] * (ABNORMAL) Basic Metabolic Panel (non-fasting) (08/20/2022 12:30 AM EDT) Glucose 188 65 - 199 mg/dL [facility] Comment:Diabetes: >=200 mg/d L plus symptoms Blood Urea Nitrogen 21(H) 8 - 18 mg/dL [facility] Creatinine 0.55(L) 0.70 - 1.20 mg/dL [facility] Sodium 144 135 - 145 mmol/L [facility] Potassium 4.1 3.5 - 5.0 mmol/L [facility] Comment: Please note: ??Patients with WBC >100,000 may have falsely elevated Potassium levels. ??For accurate Potassium quantification in these patients send serum separator tube (gold top) for subsequent determinations. ??Contact the Clinical Chemistry Laboratory if there are any questions. Chloride 107 98 - 107 mmol/L [facility] Carbon Dioxide 28 22 - 31 mmol/L [facility] Anion Gap 9 5 - 15 mmol/L [facility] Calcium 8.5 8.5 - 10.5 mg/dL [facility] Est Glomerular Filtration Rate 104 >=60 mL/min/1. 73 m?? [facility] Comment: This patient's estimated GFR was [...] In Lab Richard Pascal MD CHEMISTRY ORDERABLES [facility] [place] [address] * (ABNORMAL) Phosphorus (08/20/2022 12:30 AM EDT) Phosphorus 1.7(L) 2.5 - 4.5 mg/dL [facility] Blood 08/20/2022 12:3 0 AM EDT 08/20/2022 12:32 AM EDT Narrative Resulting Agency Comment Spec In Lab Richard Pascal MD CHEMISTRY ORDERABLES Performing Organization Address [facility] Co de Phone Number [facility] [place] [address] * Magnesium (08/20/2022 12:30 AM EDT) Magnesium 0.94 0.69 - 1.07 mmol/L [facility] Blood 08/20/2022 12:3 0 AM EDT 08/20/2022 12:32 AM EDT Narrative Resulting Agency Comment Spec In Lab Richard Pascal MD CHEMISTRY ORDERABLES Performing Organization Address [facility] de Phone Number [facility] [place] [address] * POCT Glucose (08/20/2022 12:27 AM EDT) Glucose, POC 177 65 - 199 mg/dL [facility] Comment: Supplemental ranges: <140 mg/dL before meals <180 mg/dL all other times of the day Blood 08/20/2022 12:2 7 AM EDT 08/20/2022 12:27 AM EDT Carlos Terry MD POINT OF CARE TEST O RDERABLES Performing Organization Address [facility] Co de Phone Number [facility] [place] [address] * (ABNORMAL) POCT Glucose (08/19/2022 11:34 PM EDT) Glucose, POC 200(H) 65 - 199 mg/dL [facility] Comment: Supplemental ranges: <140 mg/dL before meals <180 mg/dL all other times of the day Blood 08/19/2022 11:3 4 PM EDT 08/19/2022 11:34 PM EDT Carlos Terry MD POINT OF CARE TEST O RDERABLES Performing Organization Address [facility] Co de Phone Number [facility] [place] [address] * (ABNORMAL) POCT Glucose (08/19/2022 10:32 PM EDT) Glucose, POC 200(H) 65 - 199 mg/dL [facility] Comment: Supplemental ranges: <140 mg/dL before meals <180 mg/dL all other times of the day Blood 08/19/2022 10:3 2 PM EDT 08/19/2022 10:32 PM EDT Carlos Terry MD POINT OF CARE TEST O RDERABLES Performing Organization Address [facility] Co de Phone Number [facility] [place] [address] * MRI Brain wo Contrast (08/19/2022 10:15 [...] who have questions please contact the health pediatric acute care unit nurse that requested your imaging first. ? Electronically signed by: Jagdeep Lee MD, [facility] ([phone]), at 08/20/2022 3:34 AM Narrative 08/20/2022 3:34 AM EDT EXAMINATION: MRI [...] interna. Normal marrow space signal. Procedure Note Jagdeep Lee MD - 08/20/2022 EXAMINATION: MRI BRAIN [...] patients who have questions please contactthe health pediatric acute care unit nurse that requested your imaging first. Carlos Terry MD IM MRI ORDERABLES * POCT Glucose (08/19/2022 7:08 PM EDT) [facility] Signature Glucose, POC 165 65 - 199 mg/dL [facility] Comment: Supplemental ranges: <140 mg/dL before meals <180 mg/dL all other times of the day Blood 08/19/2022 7:08 PM EDT 08/19/2022 7:08 PM EDT Carlos Terry MD POINT OF CARE TEST O RDERABLES [facility] [place] [address] * POCT Glucose (08/19/2022 6:03 PM EDT) Glucose, POC 172 65 - 199 mg/dL [facility] Comment: Supplemental ranges: <140 mg/dL before meals <180 mg/dL all other times of the day Blood 08/19/2022 6:03 PM EDT 08/19/2022 6:03 PM EDT Carlos Terry MD POINT OF CARE TEST O RDERABLES Performing Organization Address City/[facility]/ZIP Co de Phone Number [facility] [place] [address] * Blood culture (08/19/2022 5:20 PM EDT) Blood Culture No growth at 5 days. [facility] Blood 08/19/2022 5:20 PM EDT 08/19/2022 6:53 PM EDT Comment:RA Narrative Resulting Agency Comment Spec In Lab Carlos Terry MD MICROBIOLOGY - BLOOD ORDERABLES Performing Organization Address City/[facility]/ZIP Co de Phone Number [facility] [place] [address] * POCT Glucose (08/19/2022 5:08 PM EDT) Glucose, POC 154 65 - 199 mg/dL [facility] Comment: Supplemental ranges: <140 mg/dL before meals <180 mg/dL all other times of the day Blood 08/19/2022 5:08 PM EDT 08/19/2022 5:08 PM EDT Carlos Terry MD POINT [place] [address] * Place BEDSIDE PICC Line: Contact Vascular Access Page [phone] Is PICC procedure required PRIOR to patients discharge? No (08/19/2022 4:51 PM EDT) Narrative Carlos Arnold RN - 08/19/2022 4:51 PM EDT Carlos Arnold RN ? 08/19/2022 ??4:55 PM PICC/Midline Insertion Procedure Note Indications: Medication Administration This insertion was not to replace a malfunctioning catheter. This insertion was not due to a suspected line-associated infection. Location of Procedure: [facility] Risks and Benefits: The risks and benefits [...] to the planned procedure. Hand Hygiene: The floating labor gang supervisor did perform hand hygiene prior to line insertion. Catheter type: PICC Lot number: [id number] Procedure Technique: Skin was prepped with chlorhexidine. [...] who have questions please contact the health pediatric acute care unit nurse that requested your imaging first. ? Electronically signed by: Alan De Guzman MD, [facility] ([phone]), at 08/19/2022 4:39 PM Narrative 08/19/2022 4:39 [...] patients who have questions please contactthe health pediatric acute care unit nurse that requested your imaging first. Carlos Terry MD IMG DX ORDERABLES * POCT Glucose (08/19/2022 3:15 PM EDT) Glucose, POC 177 65 - 199 mg/dL [facility] Comment: Supplemental ranges: <140 mg/dL before meals <180 mg/dL all other times of the day Blood 08/19/2022 3:15 PM EDT 08/19/2022 3:15 PM EDT Carlos Terry MD POINT OF CARE TEST O RDERABLES Performing Organization Address City/[facility]/ZIP Co de Phone Number [facility] [place] [address] * Lower Respiratory Culture Sputum Induced (08/19/2022 2:51 PM EDT) Lower Respiratory Culture Rare mixed bacterial morphotypes suggestive of normal upper respiratory wiley [facility] Gram Stain Many Neutrophils seen Few squamous epithelial cells seen No microorganisms seen. [facility] Sputum Induced 08/19/2022 2: 51 PM EDT 08/19/2022 3:47 PM EDT Narrative Resulting Agency Comment Spec In Lab Carlos Terry MD MICROBIOLOGY - GENER AL ORDERABLES Performing Organization Address City/[facility]/ZIP Co de Phone Number [facility] [place] [address] * Lactate, whole blood, send to lab ([facility] (08/19/2022 2:45 PM EDT) Lactate WB 1.6 0.5 - 2.2 mmol/L [facility] Blood 08/19/2022 2:45 PM EDT 08/19/2022 2:58 PM EDT Narrative Resulting Agency Comment Spec In Lab Carlos Terry MD CHEMISTRY ORDERABLES Performing Organization Address City/[facility]/ZIP Co de Phone Number [facility] [place] [address] * (ABNORMAL) Urinalysis Microscopic Exam (08/19/2022 2:30 PM EDT) Pathologist [facility] RBC, Urine 1 0 - 4 /HPF [facility] WBC, Urine 3 0 - 5 /HPF [facility] Bacteria, Urine Rare(A) None /HPF [facility] Budding Yeast, Urine Occasiona l(A) None /HPF [facility] Comment: Interpret results with caution, microscopic results are from suboptimal specimen volume Hyphae Yeast, Urine Occasiona l(A) None /HPF [facility] Squamous Epithelial Cells Raw Data, Urine 1 <=4 /HPF [facility] Hyaline Casts, Urine 2 0 - 2 /LPF [facility] Indwelling Catheter Urine 08/19/2022 2:30 PM EDT 08/19/2022 3:12 PM EDT Narrative Resulting Agency Comment Spec In Lab Neva Tomlin MD URINE ORDERABLES Performing Organization Address City/[facility]/ZIP Co de Phone Number [facility] [place] [address] * (ABNORMAL) Urinalysis with reflex Culture (08/19/2022 2:30 PM EDT) Pathologist [facility] Glucose, Urine Dipstick 100(A) Negative mg/dL [facility] Protein, Urine Dipstick 30(A) Negative mg/dL [facility] Bilirubin, Urine Dipstick Negative Negative mg/dL [facility] Comment: Clinical correlation required for positive Urine Bilirubin results as false positive may occur with some drugs and drug related products. If a false positive is suspected a serum total bilirubin should be considered if clinically indicated. Urobilinogen, Urine Dipstick Normal Normal mg/dL [facility] pH, Urn (dipstick) 5.5 5.0 - 8.0 [facility] Blood, Urine Dipstick Large(A) Negative mg/dL [facility] Ketone, Urine Dipstick Negative Negative mg/dL [facility] Nitrite, Urine Dipstick Negative Negative [facility] Leukocytes, Urine Dipstick Trace(A) Negative mcL [facility] Appearance, Urine Dipstick Clear Clear [facility] Specific [place] Urine Automated 1.018 1.005 - 1.030 [facility] Color, Urine Dipstick Yellow Yellow [facility] Reflex to Culture No [facility] Indwelling Catheter Urine 08/19/2022 2:30 PM EDT 08/19/2022 3:12 PM EDT Narrative Resulting Agency Comment Spec In Lab Carlos Terry MD URINE ORDERABLES Performing Organization Address [facility] Co de Phone Number [facility] [place] [address] * Phosphorus (08/19/2022 1:45 PM EDT) Phosphorus 2.9 2.5 - 4.5 mg/dL [facility] Blood Venous Draw / Unknown 08/19/2022 1:45 PM EDT 08/19/2022 2:05 PM EDT Narrative Resulting Agency Comment Spec In Lab Neva Tomlin MD CHEMISTRY ORDERABLES Performing Organization Address [facility] Co de Phone Number [facility] [place] [address] * (ABNORMAL) Basic Metabolic Panel (non-fasting) (08/19/2022 1:45 PM EDT) Glucose 224(H) 65 - 199 mg/dL [facility] Comment:Diabetes: >=200 mg/d L plus symptoms Blood Urea Nitrogen 20(H) 8 - 18 mg/dL [facility] Creatinine 0.59(L) 0.70 - 1.20 mg/dL [facility] Sodium 145 135 - 145 mmol/L [facility] Potassium 4.1 3.5 - 5.0 mmol/L [facility] Comment: Please note: ??Patients with WBC >100,000 may have falsely elevated Potassium levels. ??For accurate Potassium quantification in these patients send serum separator tube (gold top) for subsequent determinations. ??Contact the Clinical Chemistry Laboratory if there are any questions. Chloride 106 98 - 107 mmol/L [facility] Carbon Dioxide 29 22 - 31 mmol/L [facility] Anion Gap 10 5 - 15 mmol/L [facility] Calcium 8.6 8.5 - 10.5 mg/dL [facility] Est Glomerular Filtration Rate 102 >=60 mL/min/1. 73 m?? [facility] Comment: This patient's estimated GFR was [...] Terry MD CHEMISTRY ORDERABLES Performing Organization Address City/State/[facility] Co de Phone Number [facility] [address] * Blood culture (08/19/2022 1:30 PM EDT) Blood Culture No growth at 5 days. [facility] Blood 08/19/2022 1:30 PM EDT 08/19/2022 2:15 PM EDT Comment:L Hand Narrative Resulting Agency Comment Spec In Lab Carlos Terry MD MICROBIOLOGY - BLOOD ORDERABLES [facility] [place] [address] * XR Chest One View (08/19/2022 12:30 [...] who have questions please contact the health pediatric acute care unit nurse that requested your imaging first. ? Electronically signed by: Alan De Guzman MD, [facility] ([phone]), at 08/19/2022 3:14 PM Narrative 08/19/2022 3:14 PM EDT EXAMINATION: XR CHEST ONE VIEW CLINICAL HISTORY: febrile, altered, leukocytosis TECHNIQUE: 1 view of the chest ; AP portable 20 degrees upright COMPARISON: Chest radiograph 08/16/2022 FINDINGS: ET tube tip measures 3.0 cm above consuelo. Enteric catheter descends below the diaphragm and below the [id number]. Interval removal of right IJ approach PA [...] catheter descends below the diaphragm and below [id number]. Interval removal of right IJ approach PA [...] patients who have questions please contactthe health pediatric acute care unit nurse that requested your imaging first. Carlos Terry MD IMG DX ORDERABLES * POCT Glucose (08/19/2022 11:35 AM EDT) Glucose, POC 186 65 - 199 mg/dL [facility] Comment: Supplemental ranges: <140 mg/dL before meals <180 mg/dL all other times of the day Blood 08/19/2022 11:3 5 AM EDT 08/19/2022 11:35 AM EDT Carlos Terry MD POINT OF CARE TEST O RDERABLES [facility] [place] [address] * ECHO LMTD W CONTRAST W LMTD SPEC DOPP COLOR DOPP (08/19/2022 11:30 AM EDT) EF 32 [employer] Anatomical Region Laterality Modality Cardiac Other 08/19/2022 10:4 7 AM EDT Narrative 08/19/2022 12:04 PM EDT ? Echocardiogram Report Name: IRVINGISHAN ? Study Date: 08/19/2022 10:47 AMBP: 110/57 mmHg ? Patient Location: [facility] CV24 A HR: 110 : 1960 ? Height: 152 cm ? Account: [id number] Age: 62 yrs ? Weight: 73 kg Gender: Female ?BSA: 1.7 m2 Ordering Physician: CARLOS TERRY Referring Physician: NIURKA AYALA Performed By: Thu Croft RDCS Reason For Study: Shock Interpreting Fellow: Hang Moreno. Exam Location: [facility]. Interpretation Summary -Left ventricular systolic function is [...] been no significant change. Procedure Limited - 77428. Doppler - 59900. Color Doppler - 90787. Image enhancement Optison was used for left [...] Echocardiogram Report Name: ISHAN IRVING Study Date: 310:47 AMBP: 110/57 mmHg Patient Location: [address] HR: 110 : 1960 Height: 152 cm Account: [id number] Age: 62 yrs Weight: 73 kg Gender: Female BSA: 1.7 m2 Ordering Physician: CARLOS TERRY Referring Physician: NIURKA AYALA Performed By: Thu Croft RDCS Reason For Study: Shock Interpreting Fellow: Hang Moreno. Exam Location: [facility]. Interpretation Summary -Left ventricular systolic function is [...] has been no significantchange. Procedure Limited - 73911. Doppler - 38499. Color Doppler - 09190. Image enhancementOptison was used for left ventricular [...] Glucose, POC 189 65 - 199 mg/dL [facility] Comment: Supplemental ranges: <140 mg/dL before meals <180 mg/dL all other times of the day Blood 08/19/2022 9:49 AM EDT 08/19/2022 9:49 AM EDT Carlos eTrry MD POINT OF CARE TEST O RDERAREYMUNDO Performing Organization Address [facility] Co de Phone Number [facility] [place] [address] * (ABNORMAL) POCT Glucose (08/19/2022 7:57 AM EDT) Glucose, POC 229(H) 65 - 199 mg/dL [facility] Comment: Supplemental ranges: <140 mg/dL before meals <180 mg/dL all other times of the day Blood 08/19/2022 7:57 AM EDT 08/19/2022 7:57 AM EDT Carlos Terry MD POINT OF CARE TEST O GABRIELLA [facility] [place] [address] * (ABNORMAL) POCT Glucose (08/19/2022 6:58 AM EDT) Glucose, POC 215(H) 65 - 199 mg/dL [facility] Comment: Supplemental ranges: <140 mg/dL before meals <180 mg/dL all other times of the day Blood 08/19/2022 6:58 AM EDT 08/19/2022 6:58 AM EDT Carlos Terry MD POINT OF CARE TEST O RDERABLES [facility] [address] [place] [address] * (ABNORMAL) BLOOD GAS 2 ARTERIAL (08/19/2022 5:07 AM EDT) pH, Arterial 7.54(H) 7.35 - 7.45 [facility] PCO2, Arterial 31(L) 35 - 45 mmHg [facility] PO2, Arterial 73(L) 85 - 104 mmHg [facility] Bicarbonate, Arterial 25.7 20.0 - 26.0 mmol/L [facility] Base Excess, Arterial 3.1(H) -3.0 - 3.0 mmol/L [facility] Hgb Blood Gas 9.3(L) 11.7 - 15.5 g/dL [facility] Oxyhemoglobin, Arterial 94.1 94.0 - 97.0 % [facility] Carboxyhemoglob in, Arterial 0.2 % [facility] Comment: Nonsmokers: 0.5-1.5% COHB Smokers: Variable, but usually less than 10% Toxic: 20-30% COHB Lethal: Greater than 60% COHB Methemoglobin, Arterial 0.9 <=1.5 % [facility] Na Whole Blood 142 135 - 145 mmol/L [facility] K Whole Blood 3.7 3.5 - 5.0 mmol/L [facility] Comment: Please note: Patients with WBC >100,000 may have falsely elevated Potassium levels. Contact the Clinical Chemistry Laboratory if there are any questions. ICa Whole Blood 1.14(L) 1.15 - 1.33 mmol/L [facility] Comment: Note: ??Total bilirubin higher than 20 mg/dL may lead to falsely low ionized calcium. CL Whole Blood 111(H) 98 - 107 mmol/L [facility] Gluc Whole Bld 178 65 - 199 mg/dL [facility] Comment:Diabetes: >=200 mg/d L plus symptoms. Lactate WB 1.2 0.5 - 2.2 mmol/L [facility] FIO2 Art 30 % [facility] PF Ratio Art 243 [facility] Blood 08/19/2022 5:07 AM EDT 08/19/2022 5:07 AM EDT Carlos Terry MD POINT OF CARE TEST O RDERABLES Performing Organization Address City/[facility]/ZIP Co de Phone Number [facility] [place] [address] * POCT Glucose (08/19/2022 3:08 AM EDT) Glucose, POC 176 65 - 199 mg/dL [facility] Comment: Supplemental ranges: <140 mg/dL before meals <180 mg/dL all other times of the day Blood 08/19/2022 3:08 AM EDT 08/19/2022 3:08 AM EDT Carlos Terry MD POINT OF CARE TEST O RDERABLES Performing Organization Address City/[facility]/ZIP Co de Phone Number [facility] [place] [address] * CK (08/19/2022 1:20 AM EDT) Creatine Kinase 32 0 - 160 unit/L [facility] Blood Venous Draw / Unknown 08/19/2022 1:20 AM EDT 08/19/2022 1:26 AM EDT Narrative Resulting Agency Comment Spec In Lab Neva Tomlin MD CHEMISTRY ORDERABLES Performing Organization Address City/[facility]/ZIP Co de Phone Number [facility] [place] [address] * (ABNORMAL) Differential, Automated (08/19/2022 1:20 AM EDT) Neutrophil % 68.0 % [facility] Neutrophil Absolute 19.24(H) 1.70 - 6.10 x10(3)/ L [facility] Lymph % 10.4 % [facility] Lymphocytes Abs 2.9 0.9 - 3.2 x10(3)/[facility] Monocyte % 8.1 % [facility] Monocyte Abs 2.3(H) 0.3 - 0.9 x10(3)/[facility] Eos % 0.4 % [facility] Eosinophils Abs 0.1 0.0 - 0.4 x10(3)/[facility] Basophil % 0.6 % [facility] Baso Absolute 0.2(H) 0.0 - 0.1 x10(3)/[facility] Immature Gran % 12.50 % [facility] Comment: Immature granulocytes(IG's)percentage and absolute count will include metamyelocytes, myelocytes, and promyelocytes. Blood smears from CBCs yielding IG's will be scanned manually for concordance. If this scan disagrees with the automated IG or if promyelocytes are noted, a manual differential will be performed. Immature Gran Absolute 3.52(H) 0.00 - 0.04 x10(3)/ L [facility] Blood 08/19/2022 1:20 AM EDT 08/19/2022 1:25 AM EDT Narrative Resulting Agency Comment Spec In Lab Tyler Cobb MD HEMATOLOGY ORDERABLE S [facility] [place] [address] * (ABNORMAL) Hemogram (08/19/2022 1:20 AM EDT) White Blood Cell 28.3(H) 4.0 - 9.5 x10(3)/mc L [facility] Red Blood Cell 4.35 4.00 - 5.21 x10(6)/[facility] Hemoglobin 8.7(L) 11.7 - 15.5 g/dL [facility] Hematocrit 27.9(L) 35.7 - 45.8 % [facility] Mean Cell Volume 64.1(L) 82.6 - 94.4 fL [facility] Mean Cell Hemoglobin 20.0(L) 27.1 - 32.0 pg [facility] Mean Cell Hemoglobin Concentration 31.2(L) 31.7 - 35.0 g/dL [facility] Platelet 301 145 - 357 x10(3)/mc L [facility] RDW Standard Deviation 63.6(H) 37.0 - 46.0 fL [facility] RDW coefficient of variation 29.2(H) 11.5 - 14.1 % [facility] Mean Platelet Volume Not Measured 7.6 - 12.9 fL [facility] NRBC% auto 1.0 % [facility] NRBC Absolute 0.290(H) 0.000 - 0.000 x10(3)/mc L [facility] Blood 08/19/2022 1:20 AM EDT 08/19/2022 1:25 AM EDT Narrative Resulting Agency Comment Spec In Lab Tyler Cobb MD HEMATOLOGY ORDERABLE S Performing Organization Address City/State/[facility] Co de Phone Number [facility] [place] [address] * (ABNORMAL) Basic Metabolic Panel (non-fasting) (08/19/2022 1:20 AM EDT) Glucose 187 65 - 199 mg/dL [facility] Comment:Diabetes: >=200 mg/d L plus symptoms Blood Urea Nitrogen 18 8 - 18 mg/dL [facility] Creatinine 0.50(L) 0.70 - 1.20 mg/dL [facility] Sodium 142 135 - 145 mmol/L [facility] Potassium 3.8 3.5 - 5.0 mmol/L [facility] Comment: Please note: ??Patients with WBC >100,000 may have falsely elevated Potassium levels. ??For accurate Potassium quantification in these patients send serum separator tube (gold top) for subsequent determinations. ??Contact the Clinical Chemistry Laboratory if there are any questions. Chloride 108(H) 98 - 107 mmol/L [facility] Carbon Dioxide 25 22 - 31 mmol/L [facility] Anion Gap 9 5 - 15 mmol/L [facility] Calcium 8.4(L) 8.5 - 10.5 mg/dL [facility] Est Glomerular Filtration Rate 106 >=60 mL/min/1. 73 m?? [facility] Comment: This patient's estimated GFR was [...] Pascal MD CHEMISTRY ORDERABLES Performing Organization Address City/[facility] Co de Phone Number [facility] [place] [address] * (ABNORMAL) Phosphorus (08/19/2022 1:20 AM EDT) Phosphorus 1.4(Critic al) 2.5 - 4.5 mg/dL [facility] Comment:Called by: CORTNEY, Read back by: DIOMEDES LOCKHART, Date/Time:08/19/22 02:18. Blood 08/19/2022 1:20 AM EDT 08/19/2022 1:25 AM EDT Narrative Resulting Agency Comment Spec In Lab Richard Pascal MD CHEMISTRY ORDERABLES Performing Organization Address City/[facility]/ZIP Co de Phone Number [facility] [place] [address] * Magnesium (08/19/2022 1:20 AM EDT) Magnesium 0.83 0.69 - 1.07 mmol/L [facility] Blood 08/19/2022 1:20 AM EDT 08/19/2022 1:25 AM EDT Narrative Resulting Agency Comment Spec In Lab Richard Pascal MD CHEMISTRY ORDERABLES Performing Organization Address City/[facility]/ZIP Co de Phone Number [facility] [place] [address] * POCT Glucose (08/19/2022 1:19 AM EDT) Glucose, POC 169 65 - 199 mg/dL [facility] Comment: Supplemental ranges: <140 mg/dL before meals <180 mg/dL all other times of the day Blood 08/19/2022 1:19 AM EDT 08/19/2022 1:19 AM EDT Carlos Terry MD POINT OF CARE TEST O RDERABLES Performing Organization Address [facility] Co de Phone Number [facility] [place] [address] * POCT Glucose (08/18/2022 11:03 PM EDT) Glucose, POC 171 65 - 199 mg/dL [facility] Comment: Supplemental ranges: <140 mg/dL before meals <180 mg/dL all other times of the day Blood 08/18/2022 11:0 3 PM EDT 08/18/2022 11:03 PM EDT Carlos Terry MD POINT OF CARE TEST O RDERABLES Performing Organization Address [facility] Co de Phone Number [facility] [place] [address] * POCT Glucose (08/18/2022 9:05 PM EDT) Glucose, POC 148 65 - 199 mg/dL [facility] Comment: Supplemental ranges: <140 mg/dL before meals <180 mg/dL all other times of the day Blood 08/18/2022 9:05 PM EDT 08/18/2022 9:05 PM EDT Carlos Terry MD POINT OF CARE TEST O RDERAREYMUNDO Performing Organization Address City/[facility]/ZIP Co de Phone Number [facility] [place] [address] * POCT Glucose (08/18/2022 7:51 PM EDT) Glucose, POC 144 65 - 199 mg/dL [facility] Comment: Supplemental ranges: <140 mg/dL before meals <180 mg/dL all other times of the day Blood 08/18/2022 7:51 PM EDT 08/18/2022 7:51 PM EDT Carlos Terry MD POINT OF CARE TEST O HUGHERAREYMUNDO Performing Organization Address [facility] Co de Phone Number [facility] [place] [address] * POCT Glucose (08/18/2022 6:31 PM EDT) Glucose, POC 175 65 - 199 mg/dL [facility] Comment: Supplemental ranges: <140 mg/dL before meals <180 mg/dL all other times of the day Blood 08/18/2022 6:31 PM EDT 08/18/2022 6:31 PM EDT Carlos Terry MD POINT OF CARE TEST O GABRIELLA Performing Organization Address City/[facility] Co de Phone Number [facility] [place] [address] * POCT Glucose (08/18/2022 4:56 PM EDT) Glucose, POC 166 65 - 199 mg/dL [facility] Comment: Supplemental ranges: <140 mg/dL before meals <180 mg/dL all other times of the day Blood 08/18/2022 4:56 PM EDT 08/18/2022 4:56 PM EDT Carlos Terry MD POINT OF CARE TEST O GABRIELLA Performing Organization Address [facility] Co de Phone Number [facility] [place] [address] * (ABNORMAL) POCT Glucose (08/18/2022 3:35 PM EDT) Glucose, POC 207(H) 65 - 199 mg/dL [facility] Comment: Supplemental ranges: <140 mg/dL before meals <180 mg/dL all other times of the day Blood 08/18/2022 3:35 PM EDT 08/18/2022 3:35 PM EDT Carlos Terry MD POINT OF CARE TEST O GABRIELLA Performing Organization Address [facility] Co de Phone Number [facility] [place] [address] * CT Head wo Contrast (Generic) (08/18/2022 [...] who have questions please contact the health pediatric acute care unit nurse that requested your imaging first. ? Narrative 08/18/2022 3:18 PM EDT EXAMINATION: CT [...] patients who have questions please contactthe health pediatric acute care unit nurse that requested your imaging first. Electronically signed by: Antonio Jordan MD, [facility]([phone]), at 08/18/2022 3:18 PM Carlos Terry MD G CT ORDERABLES * POCT Glucose (08/18/2022 2:38 PM EDT) Glucose, POC 194 65 - 199 mg/dL [facility] Comment: Supplemental ranges: <140 mg/dL before meals <180 mg/dL all other times of the day Blood 08/18/2022 2:38 PM EDT 08/18/2022 2:38 PM EDT Carlos Terry MD POINT OF [place] [address] * EEG ROUTINE (08/18/2022 2:19 PM EDT) Narrative Tyree [place] MD - 08/18/2022 2:19 PM EDT Tyree [place] MD ? 08/18/2022 ??8:[address] [facility] Department of Neurology Inpatient Routine EEG Report [...] EtOH, esophagitis, who presented to [facility] 3 days ago after being found unresponsive at home. ??Patient found to have likely pneumonia +/- aspiration, newly reduced EF. ??Patient not on any sedation, not waking up. MEDICATIONS: -Depakote 500 mg x1 dose -Fentanyl gtt stopped 10 -Propofol gtt stopped 10 PRIOR EEG(s): -N/A METHODS: A 21 channel digitized electroencephalogram was performed in the [facility] Clinical Neurophysiology Laboratory. The 10/20 international system of electrode placement was used and bipolar and referential electrode montages were recorded. ??In addition to EEG the patient was monitored for EKG and lateral/vertical eye movements. Video was recorded during the session. TEMPLE MARKER'S REPORT: Performed by: Glendy MARCUS Patient was [...] final interpretation as written. Tyree [place] MD [facility] Department of Neurology Carlos Terry MD NEUROLOGY ORDERABLES * POCT Glucose (08/18/2022 1:53 PM EDT) Glucose, POC 174 65 - 199 mg/dL [facility] Comment: Supplemental ranges: <140 mg/dL before meals <180 mg/dL all other times of the day Blood 08/18/2022 1:53 PM EDT 08/18/2022 1:53 PM EDT Carlos Terry MD POINT OF CARE TEST O RDERABLES [facility] [place] [address] * POCT Glucose (08/18/2022 12:30 PM EDT) Glucose, POC 129 65 - 199 mg/dL [facility] Comment: Supplemental ranges: <140 mg/dL before meals <180 mg/dL all other times of the day Blood 08/18/2022 12:3 0 PM EDT 08/18/2022 12:30 PM EDT Carlos Terry MD POINT OF CARE TEST O RDERAREYMUNDO [facility] [place] [address] * POCT Glucose (08/18/2022 11:12 AM EDT) Glucose, POC 113 65 - 199 mg/dL [facility] Comment: Supplemental ranges: <140 mg/dL before meals <180 mg/dL all other times of the day Blood 08/18/2022 11:1 2 AM EDT 08/18/2022 11:12 AM EDT Carlos Terry MD POINT OF CARE TEST O GABRIELLA [facility] [place] [address] * POCT Glucose (08/18/2022 10:37 AM EDT) Glucose, POC 121 65 - 199 mg/dL [facility] Comment: Supplemental ranges: <140 mg/dL before meals <180 mg/dL all other times of the day Blood 08/18/2022 10:3 7 AM EDT 08/18/2022 10:37 AM EDT Carlos Terry MD POINT OF CARE TEST O HUGHERAREYMUNDO [facility] [place] [address] * Legionella Urinary Antigen (08/18/2022 10:13 AM EDT) Legionella Urinary Antigen Negative Negative [facility] Comment: A negative Legionella Urinary [...] - GENER AL ORDERABLES Performing Organization Address [facility] Co de Phone Number [facility] [place] [address] * POCT Glucose (08/18/2022 7:36 AM EDT) Pathologist [facility] Glucose, POC 175 65 - 199 mg/dL [facility] Comment: Supplemental ranges: <140 mg/dL before meals <180 mg/dL all other times of the day Blood 08/18/2022 7:36 AM EDT 08/18/2022 7:36 AM EDT Carlos Terry MD POINT OF CARE TEST O RDERABLES Performing Organization Address [facility] Co de Phone Number [facility] [place] [address] * (ABNORMAL) BLOOD GAS 2 ARTERIAL (08/18/2022 6:15 AM EDT) Pathologist [facility] pH, Arterial 7.51(H) 7.35 - 7.45 [facility] PCO2, Arterial 30(L) 35 - 45 mmHg [facility] PO2, Arterial 62(L) 85 - 104 mmHg [facility] Bicarbonate, Arterial 23.2 20.0 - 26.0 mmol/L [facility] Base Excess, Arterial 0.2 -3.0 - 3.0 mmol/L [facility] Hgb Blood Gas 10.2(L) 11.7 - 15.5 g/dL [facility] Oxyhemoglobin, Arterial 91.5(L) 94.0 - 97.0 % [facility] Carboxyhemoglob in, Arterial 0.5 % [facility] Comment: Nonsmokers: 0.5-1.5% COHB Smokers: Variable, but usually less than 10% Toxic: 20-30% COHB Lethal: Greater than 60% COHB Methemoglobin, Arterial 0.7 <=1.5 % [facility] Na Whole Blood 136 135 - 145 mmol/L [facility] K Whole Blood 3.7 3.5 - 5.0 mmol/L [facility] Comment: Please note: Patients with WBC >100,000 may have falsely elevated Potassium levels. Contact the Clinical Chemistry Laboratory if there are any questions. ICa Whole Blood 1.16 1.15 - 1.33 mmol/L [facility] Comment: Note: ??Total bilirubin higher than 20 mg/dL may lead to falsely low ionized calcium. CL Whole Blood 104 98 - 107 mmol/L [facility] Gluc Whole Bld 219(H) 65 - 199 mg/dL [facility] Comment:Diabetes: >=200 mg/d L plus symptoms. Lactate WB 1.6 0.5 - 2.2 mmol/L [facility] FIO2 Art 30 % [facility] PF Ratio Art 207 [facility] Blood 08/18/2022 6:15 AM EDT 08/18/2022 6:15 AM EDT Carlos Terry MD POINT OF CARE TEST O RDAV Performing Organization Address [facility] Co de Phone Number [facility] [place] [address] * POCT Glucose (08/18/2022 2:31 AM EDT) Glucose, POC 176 65 - 199 mg/dL [facility] Comment: Supplemental ranges: <140 mg/dL before meals <180 mg/dL all other times of the day Blood 08/18/2022 2:31 AM EDT 08/18/2022 2:31 AM EDT Carlos Terry MD POINT OF CARE TEST O HUGHERAREYMUNDO Performing Organization Address City/[facility] Co de Phone Number [facility] [place] [address] * Scan, Peripheral Blood (08/18/2022 2:30 AM EDT) Pathologist [facility] Plat estimate Normal [facility] RBC Morphology Abnormal [facility] Microcyte 6-10 /HPF [facility] Hypochromia Moderate [facility] Ovalocytes 1-5 /HPF [facility] Mcfarland Cells 6-10 /HPF [facility] Plat, Giant Less than 1 /HPF [facility] Blood 08/18/2022 2:30 AM EDT 08/18/2022 2:36 AM EDT Narrative Resulting Agency Comment Spec In Lab Tyler Cobb [place] [address] * (ABNORMAL) Differential, Automated (08/18/2022 2:30 AM EDT) Pathologist [facility] Neutrophil % 69.7 % [facility] Neutrophil Absolute 16.91(H) 1.70 - 6.10 x10(3)/mc L [facility] Lymph % 8.7 % [facility] Lymphocytes Abs 2.1 0.9 - 3.2 x10(3)/mc L [facility] Monocyte % 8.4 % [facility] Monocyte Abs 2.0(H) 0.3 - 0.9 x10(3)/mc L [facility] Eos % 0.5 % [facility] Eosinophils Abs 0.1 0.0 - 0.4 x10(3)/mc L [facility] Basophil % 0.7 % [facility] Baso Absolute 0.2(H) 0.0 - 0.1 x10(3)/mc L [facility] Immature Gran % 12.00 % [facility] Comment: Immature granulocytes(IG's)percentage and absolute count will include metamyelocytes, myelocytes, and promyelocytes. Blood smears from CBCs yielding IG's will be scanned manually for concordance. If this scan disagrees with the automated IG or if promyelocytes are noted, a manual differential will be performed. Immature Gran Absolute 2.90(H) 0.00 - 0.04 x10(3)/mc L [facility] Blood 08/18/2022 2:30 AM EDT 08/18/2022 2:36 AM EDT Narrative Resulting Agency Comment Spec In Lab Tyler Cobb MD HEMATOLOGY ORDERABLE S Performing Organization Address City/[facility] Co de Phone Number [facility] [place] [address] * (ABNORMAL) Hemogram (08/18/2022 2:30 AM EDT) White Blood Cell 24.3(H) 4.0 - 9.5 x10(3)/mc L [facility] Red Blood Cell 4.39 4.00 - 5.21 x10(6)/mc L [facility] Hemoglobin 9.0(L) 11.7 - 15.5 g/dL [facility] Hematocrit 28.2(L) 35.7 - 45.8 % [facility] Mean Cell Volume 64.2(L) 82.6 - 94.4 fL [facility] Mean Cell Hemoglobin 20.5(L) 27.1 - 32.0 pg [facility] Mean Cell Hemoglobin Concentration 31.9 31.7 - 35.0 g/dL [facility] Platelet 226 145 - 357 x10(3)/mc L [facility] RDW Standard Deviation 63.0(H) 37.0 - 46.0 fL [facility] RDW coefficient of variation 29.1(H) 11.5 - 14.1 % [facility] Mean Platelet Volume Not Measured 7.6 - 12.9 fL [facility] NRBC% auto 0.2 % [facility] NRBC Absolute 0.050(H) 0.000 - 0.000 x10(3)/mc L [facility] Blood 08/18/2022 2:30 AM EDT 08/18/2022 2:36 AM EDT Narrative Resulting Agency Comment Spec In Lab Tyler Cobb MD HEMATOLOGY ORDERABLE S Performing Organization Address City/[facility] Co de Phone Number [facility] [place] [address] * (ABNORMAL) Basic Metabolic Panel (non-fasting) (08/18/2022 2:30 AM EDT) Glucose 178 65 - 199 mg/dL [facility] Comment:Diabetes: >=200 mg/d L plus symptoms Blood Urea Nitrogen 25(H) 8 - 18 mg/dL [facility] Creatinine 0.67(L) 0.70 - 1.20 mg/dL [facility] Sodium 139 135 - 145 mmol/L [facility] Potassium 4.2 3.5 - 5.0 mmol/L [facility] Comment: Please note: ??Patients with WBC >100,000 may have falsely elevated Potassium levels. ??For accurate Potassium quantification in these patients send serum separator tube (gold top) for subsequent determinations. ??Contact the Clinical Chemistry Laboratory if there are any questions. Chloride 104 98 - 107 mmol/L [facility] Carbon Dioxide 25 22 - 31 mmol/L [facility] Anion Gap 10 5 - 15 mmol/L [facility] Calcium 8.4(L) 8.5 - 10.5 mg/dL [facility] Est Glomerular Filtration Rate 99 >=60 mL/min/1. 73 m?? [facility] Comment: This patient's estimated GFR was [...] Pascal MD CHEMISTRY ORDERABLES Performing Organization Address [facility]/ZIP Co de Phone Number [facility] [place] [address] * (ABNORMAL) Phosphorus (08/18/2022 2:30 AM EDT) Phosphorus 1.2(Critic al) 2.5 - 4.5 mg/dL [facility] Comment:Called by: IRMA, Read back by: Conner Kelsey, Date/Time:08/18/22 03:39. Blood 08/18/2022 2:30 AM EDT 08/18/2022 2:36 AM EDT Narrative Resulting Agency Comment Spec In Lab Richard Pascal MD CHEMISTRY ORDERABLES [facility] [place] [address] * Magnesium (08/18/2022 2:30 AM EDT) Magnesium 1.02 0.69 - 1.07 mmol/L [facility] Blood 08/18/2022 2:30 AM EDT 08/18/2022 2:36 AM EDT Narrative Resulting Agency Comment Spec In Lab Richard Pascal MD CHEMISTRY ORDERABLES Performing Organization Address [facility]/ZIP Co de Phone Number [facility] [place] [address] * POCT Glucose (08/18/2022 1:15 AM EDT) Glucose, POC 168 65 - 199 mg/dL [facility] Comment: Supplemental ranges: <140 mg/dL before meals <180 mg/dL all other times of the day Blood 08/18/2022 1:15 AM EDT 08/18/2022 1:15 AM EDT Carlos Terry MD POINT OF CARE TEST O RDERABLES [facility] [place] [address] * POCT Glucose (08/17/2022 11:04 PM EDT) Glucose, POC 188 65 - 199 mg/dL [facility] Comment: Supplemental ranges: <140 mg/dL before meals <180 mg/dL all other times of the day Blood 08/17/2022 11:0 4 PM EDT 08/17/2022 11:04 PM EDT Carlos Terry MD POINT OF CARE TEST O RDAV [facility] [place] [address] * Potassium (08/17/2022 9:29 PM EDT) Potassium 3.5 3.5 - 5.0 mmol/L [facility] Comment: Please note: ??Patients with WBC [...] Pascal MD CHEMISTRY ORDERABLES Performing Organization Address [facility] Co de Phone Number [facility] [place] [address] * POCT Glucose (08/17/2022 8:06 PM EDT) Glucose, POC 161 65 - 199 mg/dL [facility] Comment: Supplemental ranges: <140 mg/dL before meals <180 mg/dL all other times of the day Blood 08/17/2022 8:06 PM EDT 08/17/2022 8:06 PM EDT Carlos Terry MD POINT OF CARE TEST O RDERABLES Performing Organization Address City/[facility]/ZIP Co de Phone Number [facility] [place] [address] * POCT Glucose (08/17/2022 6:47 PM EDT) Glucose, POC 169 65 - 199 mg/dL [facility] Comment: Supplemental ranges: <140 mg/dL before meals <180 mg/dL all other times of the day Blood 08/17/2022 6:47 PM EDT 08/17/2022 6:47 PM EDT Carlos Terry MD POINT OF CARE TEST O GABRIELLA Performing Organization Address City/[facility] Co de Phone Number [facility] [place] [address] * POCT Glucose (08/17/2022 5:42 PM EDT) Glucose, POC 189 65 - 199 mg/dL [facility] Comment: Supplemental ranges: <140 mg/dL before meals <180 mg/dL all other times of the day Blood 08/17/2022 5:42 PM EDT 08/17/2022 5:42 PM EDT Carlos Terry MD POINT OF CARE TEST O GABRIELLA Performing Organization Address [facility] Co de Phone Number [facility] [place] [address] * POCT Glucose (08/17/2022 4:44 PM EDT) Glucose, POC 195 65 - 199 mg/dL [facility] Comment: Supplemental ranges: <140 mg/dL before meals <180 mg/dL all other times of the day Blood 08/17/2022 4:44 PM EDT 08/17/2022 4:44 PM EDT Carlos Terry MD POINT OF CARE TEST O GABRIELLA Performing Organization Address City/[facility] Co de Phone Number [facility] [place] [address] * Potassium (08/17/2022 3:15 PM EDT) Potassium 3.6 3.5 - 5.0 mmol/L [facility] Comment: Please note: ??Patients with WBC [...] Pascal MD CHEMISTRY ORDERABLES Performing Organization Address [facility] Co de Phone Number [facility] [place] [address] * Vancomycin Level, Random (08/17/2022 3:15 PM EDT) Vancomycin, Random 19.2 mg/L [facility] Comment: This level is for determination of the patient's vancomycin abnn-pwnlc-tfm-curve (AUC) value. Contact the inpatient pharmacy for interpretation. Blood 08/17/2022 3:15 PM EDT 08/17/2022 3:25 PM EDT Carlos Terry MD CHEMISTRY ORDERABLES Performing Organization Address [facility] Co de Phone Number [facility] [place] [address] * POCT Glucose (08/17/2022 3:10 PM EDT) Glucose, POC 140 65 - 199 mg/dL [facility] Comment: Supplemental ranges: <140 mg/dL before meals <180 mg/dL all other times of the day Blood 08/17/2022 3:10 PM EDT 08/17/2022 3:10 PM EDT Carlos Terry MD POINT OF CARE TEST O RDERABLES Performing Organization Address [facility] Co de Phone Number [facility] [place] [address] * POCT Glucose (08/17/2022 1:41 PM EDT) Glucose, POC 130 65 - 199 mg/dL [facility] Comment: Supplemental ranges: <140 mg/dL before meals <180 mg/dL all other times of the day Blood 08/17/2022 1:41 PM EDT 08/17/2022 1:41 PM EDT Carlos Terry MD POINT OF CARE TEST O RDERABLES [facility] [place] [address] * XR Abdomen 1 view (Generic) (08/17/2022 [...] who have questions please contact the health pediatric acute care unit nurse that requested your imaging first. ? Narrative [...] resident's interpretationand agree with the findings, Jenn iPna MD at 08/17/2022 2:31 PM Thank you for letting us participate in the care of this patient. If youare a health care provider and have any questions regarding this report,please contact the number below. For patients who have questions please contactthe health pediatric acute care unit nurse that requested your imaging first. Carlos Terry MD IMG DX ORDERABLES * POCT Glucose (08/17/2022 11:31 AM EDT) Glucose, POC 146 65 - 199 mg/dL [facility] Comment: Supplemental ranges: <140 mg/dL before meals <180 mg/dL all other times of the day Blood 08/17/2022 11:3 1 AM EDT 08/17/2022 11:31 AM EDT Carlos Terry MD POINT OF CARE TEST O RDERABLES Performing Organization Address City/[facility] Co de Phone Number [facility] [place] [address] * POCT Glucose (08/17/2022 9:27 AM EDT) Glucose, POC 170 65 - 199 mg/dL [facility] Comment: Supplemental ranges: <140 mg/dL before meals <180 mg/dL all other times of the day Blood 08/17/2022 9:27 AM EDT 08/17/2022 9:27 AM EDT Carlos Terry MD POINT OF CARE TEST O RDERABLES Performing Organization Address [facility] Co de Phone Number [facility] [place] [address] * POCT Glucose (08/17/2022 7:50 AM EDT) Glucose, POC 158 65 - 199 mg/dL [facility] Comment: Supplemental ranges: <140 mg/dL before meals <180 mg/dL all other times of the day Blood 08/17/2022 7:50 AM EDT 08/17/2022 7:50 AM EDT Carlos Terry MD POINT OF CARE TEST O RDERABLES Performing Organization Address City/[facility] Co de Phone Number [facility] [place] [address] * POCT Glucose (08/17/2022 6:53 AM EDT) Glucose, POC 155 65 - 199 mg/dL [facility] Comment: Supplemental ranges: <140 mg/dL before meals <180 mg/dL all other times of the day Blood 08/17/2022 6:53 AM EDT 08/17/2022 6:53 AM EDT Carlos Terry MD POINT OF CARE TEST O RDERABLES Performing Organization Address City/[facility]/ZIP Co de Phone Number [facility] [place] [address] * POCT Glucose (08/17/2022 6:18 AM EDT) Pathologist [facility] Glucose, POC 166 65 - 199 mg/dL [facility] Comment: Supplemental ranges: <140 mg/dL before meals <180 mg/dL all other times of the day Blood 08/17/2022 6:18 AM EDT 08/17/2022 6:18 AM EDT Carlos Terry MD POINT OF CARE TEST O RDERABLES Performing Organization Address [facility] Co de Phone Number [facility] [place] [address] * Heparin (unfractionated) Level (08/17/2022 6:15 AM EDT) [facility] UF Heparin 0.48 IU/mL [facility] Comment: Heparin (anti-Xa) levels should be [...] MD HEMATOLOGY ORDERABLE S Performing Organization Address City/[facility]/ZIP Co de Phone Number [facility] [place] [address] * POCT Glucose (08/17/2022 5:20 AM EDT) Pathologist [facility] Glucose, POC 165 65 - 199 mg/dL [facility] Comment: Supplemental ranges: <140 mg/dL before meals <180 mg/dL all other times of the day Blood 08/17/2022 5:20 AM EDT 08/17/2022 5:20 AM EDT Carlos Terry MD POINT OF CARE TEST O RDERAREYMUNDO Performing Organization Address City/[facility]/ZIP Co de Phone Number [facility] [place] [address] * POCT Glucose (08/17/2022 4:19 AM EDT) Glucose, POC 128 65 - 199 mg/dL [facility] Comment: Supplemental ranges: <140 mg/dL before meals <180 mg/dL all other times of the day Blood 08/17/2022 4:19 AM EDT 08/17/2022 4:19 AM EDT Carlos Terry MD POINT OF CARE TEST O GABRIELLA Performing Organization Address [facility] Co de Phone Number [facility] [place] [address] * POCT Glucose (08/17/2022 2:51 AM EDT) Glucose, POC 129 65 - 199 mg/dL [facility] Comment: Supplemental ranges: <140 mg/dL before meals <180 mg/dL all other times of the day Blood 08/17/2022 2:51 AM EDT 08/17/2022 2:51 AM EDT Carlos Terry MD POINT OF CARE TEST O RDERAREYMUNDO Performing Organization Address City/[facility] Co de Phone Number [facility] [place] [address] * POCT Glucose (08/17/2022 2:05 AM EDT) Glucose, POC 144 65 - 199 mg/dL [facility] Comment: Supplemental ranges: <140 mg/dL before meals <180 mg/dL all other times of the day Blood 08/17/2022 2:05 AM EDT 08/17/2022 2:05 AM EDT Carlos Terry MD POINT OF CARE TEST O RDERABLES Performing Organization Address City/[facility] Co de Phone Number [facility] [place] [address] * POCT Glucose (08/17/2022 1:36 AM EDT) Glucose, POC 147 65 - 199 mg/dL [facility] Comment: Supplemental ranges: <140 mg/dL before meals <180 mg/dL all other times of the day Blood 08/17/2022 1:36 AM EDT 08/17/2022 1:36 AM EDT Carlos Terry MD POINT OF CARE TEST O RDERAREYMUNDO Performing Organization Address [facility] Co de Phone Number [facility] [place] [address] * POCT Glucose (08/17/2022 1:07 AM EDT) Glucose, POC 134 65 - 199 mg/dL [facility] Comment: Supplemental ranges: <140 mg/dL before meals <180 mg/dL all other times of the day Blood 08/17/2022 1:07 AM EDT 08/17/2022 1:07 AM EDT Carlos Terry MD POINT OF CARE TEST O RDERAREYMUNDO Performing Organization Address [facility] Co de Phone Number [facility] [place] [address] * (ABNORMAL) Basic Metabolic Panel (non-fasting) (08/17/2022 12:45 AM EDT) Glucose 157 65 - 199 mg/dL [facility] Comment:Diabetes: >=200 mg/d L plus symptoms Blood Urea Nitrogen 36(H) 8 - 18 mg/dL [facility] Creatinine 1.10 0.70 - 1.20 mg/dL [facility] Sodium 136 135 - 145 mmol/L [facility] Potassium Not Perf 3.5 - 5.0 [facility] Comment: Duplicate order Please note: ??Patients with WBC >100,000 may have falsely elevated Potassium levels. ??For accurate Potassium quantification in these patients send serum separator tube (gold top) for subsequent determinations. ??Contact the Clinical Chemistry Laboratory if there are any questions. Chloride 101 98 - 107 mmol/L [facility] Carbon Dioxide Not Perf 22 - 31 [facility] Comment:Add-on request. Samp le too old to perform test. Anion Gap Unable to Calculate 5 - 15 mmol/L [facility] Calcium 8.3(L) 8.5 - 10.5 mg/dL [facility] Est Glomerular Filtration Rate 57(L) >=60 mL/min/1 .73 m?? [facility] Comment: This patient's estimated GFR was [...] In Lab Tyler Cobb MD CHEMISTRY ORDERABLES [facility] [place] [address] * Potassium (08/17/2022 12:45 AM EDT) Potassium 4.6 3.5 - 5.0 mmol/L [facility] Comment: Please note: ??Patients with WBC [...] Cobb MD CHEMISTRY ORDERABLES Performing Organization Address City/[facility]/ZIP Co de Phone Number [facility] [place] [address] * (ABNORMAL) Differential, Automated (08/17/2022 12:45 AM EDT) Neutrophil % 75.1 % [facility] Neutrophil Absolute 13.95(H) 1.70 - 6.10 x10(3)/mc L [facility] Lymph % 9.5 % [facility] Lymphocytes Abs 1.8 0.9 - 3.2 x10(3)/mc L [facility] Monocyte % 9.5 % [facility] Monocyte Abs 1.8(H) 0.3 - 0.9 x10(3)/mc L [facility] Eos % 0.5 % [facility] Eosinophils Abs 0.1 0.0 - 0.4 x10(3)/mc L [facility] Basophil % 0.4 % [facility] Baso Absolute 0.1 0.0 - 0.1 x10(3)/mc L [facility] Immature Gran % 5.00 % [facility] Comment: Immature granulocytes(IG's)percentage and absolute count will include metamyelocytes, myelocytes, and promyelocytes. Blood smears from CBCs yielding IG's will be scanned manually for concordance. If this scan disagrees with the automated IG or if promyelocytes are noted, a manual differential will be performed. Immature Gran Absolute 0.93(H) 0.00 - 0.04 x10(3)/mc L [facility] Blood 08/17/2022 12:4 5 AM EDT 08/17/2022 12:57 AM EDT Narrative Resulting Agency Comment Spec In Lab Tyler Cobb MD HEMATOLOGY ORDERABLE S [facility] [place] [address] * (ABNORMAL) Hemogram (08/17/2022 12:45 AM EDT) White Blood Cell 18.6(H) 4.0 - 9.5 x10(3)/ L [facility] Red Blood Cell 4.00 4.00 - 5.21 x10(6)/mc L [facility] Hemoglobin 8.2(L) 11.7 - 15.5 g/dL [facility] Hematocrit 26.0(L) 35.7 - 45.8 % [facility] Mean Cell Volume 65.0(L) 82.6 - 94.4 fL [facility] Mean Cell Hemoglobin 20.5(L) 27.1 - 32.0 pg [facility] Mean Cell Hemoglobin Concentration 31.5(L) 31.7 - 35.0 g/dL [facility] Platelet 176 145 - 357 x10(3)/mc L [facility] RDW Standard Deviation 64.0(H) 37.0 - 46.0 fL [facility] RDW coefficient of variation 29.0(H) 11.5 - 14.1 % [facility] Mean Platelet Volume Not Measured 7.6 - 12.9 fL [facility] NRBC% auto 0.1 % [facility] NRBC Absolute 0.020(H) 0.000 - 0.000 x10(3)/ L [facility] Blood 08/17/2022 12:4 5 AM EDT 08/17/2022 12:57 AM EDT Narrative Resulting Agency Comment Spec In Lab Tyler Cobb [place] [address] * Heparin (unfractionated) Level (08/17/2022 12:45 AM EDT) UF Heparin 0.19 IU/mL [facility] Comment: Heparin (anti-Xa) [...] Lab Carlos Terry MD HEMATOLOGY ORDERABLE S [facility] [place] [address] * (ABNORMAL) Phosphorus (08/17/2022 12:45 AM EDT) Phosphorus 2.2(L) 2.5 - 4.5 mg/dL [facility] Blood 08/17/2022 12:4 5 AM EDT 08/17/2022 12:57 AM EDT Narrative Resulting Agency Comment Spec In Lab Richard Pascal MD CHEMISTRY ORDERABLES Performing Organization Address [facility] Co de Phone Number [facility] [place] [address] * Magnesium (08/17/2022 12:45 AM EDT) Magnesium 0.89 0.69 - 1.07 mmol/L [facility] Blood 08/17/2022 12:4 5 AM EDT 08/17/2022 12:57 AM EDT Narrative Resulting Agency Comment Spec In Lab Richard Pascal MD CHEMISTRY ORDERABLES Performing Organization Address City/[facility]/ZIP Co de Phone Number [facility] [place] [address] * POCT Glucose (08/17/2022 12:02 AM EDT) Glucose, POC 147 65 - 199 mg/dL [facility] Comment: Supplemental ranges: <140 mg/dL before meals <180 mg/dL all other times of the day Blood 08/17/2022 12:0 2 AM EDT 08/17/2022 12:02 AM EDT Carlos Terry MD POINT OF CARE TEST O RDERABLES Performing Organization Address [facility] Co de Phone Number [facility] [place] [address] * POCT Glucose (08/16/2022 11:13 PM EDT) Glucose, POC 154 65 - 199 mg/dL [facility] Comment: Supplemental ranges: <140 mg/dL before meals <180 mg/dL all other times of the day Blood 08/16/2022 11:1 3 PM EDT 08/16/2022 11:13 PM EDT Carlos Terry MD POINT OF CARE TEST O GABRIELLA Performing Organization Address [facility] de Phone Number [facility] [place] [address] * CT Head wo Contrast (Generic) (08/16/2022 [...] who have questions please contact the health pediatric acute care unit nurse that requested your imaging first. ? Electronically signed by: Moustapha Correa MD, [facility] ([phone]), at 08/16/2022 11:19 PM Narrative 08/16/2022 11:19 [...] patients who have questions please contactthe health pediatric acute care unit nurse that requested your imaging first. Electronically signed by: Moustapha Correa MD, [facility]([phone]), at 08/16/2022 11:19 PM Carlos Terry MD IM CT ORDERABLES * POCT Glucose (08/16/2022 10:12 PM EDT) [facility] Signature Glucose, POC 184 65 - 199 mg/dL [facility] Comment: Supplemental ranges: <140 mg/dL before meals <180 mg/dL all other times of the day Blood 08/16/2022 10:1 2 PM EDT 08/16/2022 10:12 PM EDT Carlos Terry MD POINT OF CARE TEST O RDERABLES Performing Organization Address [facility] Co de Phone Number [facility] [place] [address] * POCT Glucose (08/16/2022 9:23 PM EDT) Glucose, POC 183 65 - 199 mg/dL [facility] Comment: Supplemental ranges: <140 mg/dL before meals <180 mg/dL all other times of the day Blood 08/16/2022 9:23 PM EDT 08/16/2022 9:23 PM EDT Carlos Terry MD POINT OF CARE TEST O RDERABLES Performing Organization Address [facility] Co de Phone Number [facility] [place] [address] * (ABNORMAL) Coox2 (08/16/2022 8:12 PM EDT) pO2, Coox 29 mmHg [facility] Hgb Blood Gas 9.3(L) 11.7 - 15.5 g/dL [facility] LABORATORY Oxyhemoglobin, Coox 56.6 % [facility] Carboxyhemoglo bin, Coox 0.2 % [facility] Comment: Nonsmokers: 0.5-1.5% COHB Smokers: Variable, but usually less than 10% Toxic: 20-30% COHB Lethal: Greater than 60% COHB Methemoglobin, Coox 1.3 <=1.5 % [facility] Source Coox Mixed Venous [facility] Blood 08/16/2022 8:12 PM EDT 08/16/2022 8:12 PM EDT Carlos Terry MD POINT OF CARE TEST O RDERABLES [facility] [address] [facility] [address] [place] [address] * (ABNORMAL) BLOOD GAS 2 ARTERIAL (08/16/2022 8:09 PM EDT) pH, Arterial 7.48(H) 7.35 - 7.45 [facility] PCO2, Arterial 34(L) 35 - 45 mmHg [facility] PO2, Arterial 78(L) 85 - 104 mmHg [facility] Bicarbonate, Arterial 25.0 20.0 - 26.0 mmol/L [facility] Base Excess, Arterial 1.5 -3.0 - 3.0 mmol/L [facility] Hgb Blood Gas 9.4(L) 11.7 - 15.5 g/dL [facility] Oxyhemoglobin, Arterial 94.2 94.0 - 97.0 % [facility] Carboxyhemoglob in, Arterial 0.1 % [facility] Comment: Nonsmokers: 0.5-1.5% COHB Smokers: Variable, but usually less than 10% Toxic: 20-30% COHB Lethal: Greater than 60% COHB Methemoglobin, Arterial 0.9 <=1.5 % [facility] Na Whole Blood 133(L) 135 - 145 mmol/L [facility] K Whole Blood 4.6 3.5 - 5.0 mmol/L [facility] Comment: Please note: Patients with WBC >100,000 may have falsely elevated Potassium levels. Contact the Clinical Chemistry Laboratory if there are any questions. ICa Whole Blood 1.14(L) 1.15 - 1.33 mmol/L [facility] Comment: Note: ??Total bilirubin higher than 20 mg/dL may lead to falsely low ionized calcium. CL Whole Blood 102 98 - 107 mmol/L [facility] Gluc Whole Bld 180 65 - 199 mg/dL [facility] Comment:Diabetes: >=200 mg/d L plus symptoms. Lactate WB 1.5 0.5 - 2.2 mmol/L [facility] FIO2 Art 30 % [facility] PF Ratio Art 260 [facility] Blood 08/16/2022 8:09 PM EDT 08/16/2022 8:09 PM EDT Carlos Terry MD POINT OF CARE TEST O RDERABLES [facility] [place] [address] * (ABNORMAL) Basic Metabolic Panel (non-fasting) (08/16/2022 6:00 PM EDT) Glucose 181 65 - 199 mg/dL [facility] Comment:Diabetes: >=200 mg/d L plus symptoms Blood Urea Nitrogen 37(H) 8 - 18 mg/dL [facility] Creatinine 1.15 0.70 - 1.20 mg/dL [facility] Sodium 136 135 - 145 mmol/L [facility] Potassium 4.4 3.5 - 5.0 mmol/L [facility] Comment: Please note: ??Patients with WBC >100,000 may have falsely elevated Potassium levels. ??For accurate Potassium quantification in these patients send serum separator tube (gold top) for subsequent determinations. ??Contact the Clinical Chemistry Laboratory if there are any questions. Chloride 100 98 - 107 mmol/L [facility] Carbon Dioxide 24 22 - 31 mmol/L [facility] Anion Gap 12 5 - 15 mmol/L [facility] Calcium 8.4(L) 8.5 - 10.5 mg/dL [facility] Est Glomerular Filtration Rate 54(L) >=60 mL/min/1. 73 m?? [facility] Comment: This patient's estimated GFR was [...] In Lab Carlos Terry MD CHEMISTRY ORDERABLES [facility] [place] [address] * (ABNORMAL) BLOOD GAS 2 ARTERIAL (08/16/2022 5:59 PM EDT) pH, Arterial 7.53(H) 7.35 - 7.45 [facility] PCO2, Arterial 26(L) 35 - 45 mmHg [facility] PO2, Arterial 48(Critica l) 85 - 104 mmHg [facility] Comment:Noted by dental instrument maker. Bicarbonate, Arterial 21.2 20.0 - 26.0 mmol/L [facility] Base Excess, Arterial -1.5 -3.0 - 3.0 mmol/L [facility] Hgb Blood Gas 9.5(L) 11.7 - 15.5 g/dL [facility] Oxyhemoglobin, Arterial 86.1(L) 94.0 - 97.0 % [facility] Carboxyhemoglob in, Arterial 0.6 % [facility] Comment: Nonsmokers: 0.5-1.5% COHB Smokers: Variable, but usually less than 10% Toxic: 20-30% COHB Lethal: Greater than 60% COHB Methemoglobin, Arterial 0.8 <=1.5 % [facility] Na Whole Blood 132(L) 135 - 145 mmol/L [facility] K Whole Blood 4.1 3.5 - 5.0 mmol/L [facility] Comment: Please note: Patients with WBC >100,000 may have falsely elevated Potassium levels. Contact the Clinical Chemistry Laboratory if there are any questions. ICa Whole Blood 1.13(L) 1.15 - 1.33 mmol/L [facility] Comment: Note: ??Total bilirubin higher than 20 mg/dL may lead to falsely low ionized calcium. CL Whole Blood 102 98 - 107 mmol/L [facility] Gluc Whole Bld 158 65 - 199 mg/dL [facility] Comment:Diabetes: >=200 mg/d L plus symptoms. Lactate WB 1.3 0.5 - 2.2 mmol/L [facility] FIO2 Art 21 % [facility] PF Ratio Art 229 [facility] Blood 08/16/2022 5:59 PM EDT 08/16/2022 5:59 PM EDT Carlos Terry MD POINT OF CARE TEST O RDERABLES [facility] [address] [place] [address] * (ABNORMAL) BLOOD GAS 2 ARTERIAL (08/16/2022 4:02 PM EDT) pH, Arterial 7.53(H) 7.35 - 7.45 [facility] PCO2, Arterial 30(L) 35 - 45 mmHg [facility] PO2, Arterial 55(L) 85 - 104 mmHg [facility] Bicarbonate, Arterial 24.9 20.0 - 26.0 mmol/L [facility] Base Excess, Arterial 2.1 -3.0 - 3.0 mmol/L [facility] Hgb Blood Gas 9.3(L) 11.7 - 15.5 g/dL [facility] Oxyhemoglobin, Arterial 88.5(L) 94.0 - 97.0 % [facility] Carboxyhemoglob in, Arterial 1.0 % [facility] Comment: Nonsmokers: 0.5-1.5% COHB Smokers: Variable, but usually less than 10% Toxic: 20-30% COHB Lethal: Greater than 60% COHB Methemoglobin, Arterial 0.9 <=1.5 % [facility] Na Whole Blood 133(L) 135 - 145 mmol/L [facility] K Whole Blood 4.7 3.5 - 5.0 mmol/L [facility] Comment: Please note: Patients with WBC >100,000 may have falsely elevated Potassium levels. Contact the Clinical Chemistry Laboratory if there are any questions. ICa Whole Blood 1.15 1.15 - 1.33 mmol/L [facility] Comment: Note: ??Total bilirubin higher than 20 mg/dL may lead to falsely low ionized calcium. CL Whole Blood 102 98 - 107 mmol/L [facility] Gluc Whole Bld 130 65 - 199 mg/dL [facility] Comment:Diabetes: >=200 mg/d L plus symptoms. Lactate WB 1.5 0.5 - 2.2 mmol/L [facility] FIO2 Art 21 % [facility] PF Ratio Art 262 [facility] Blood 08/16/2022 4:02 PM EDT 08/16/2022 4:02 PM EDT Carlos Terry MD POINT OF CARE TEST O RDERAREYMUNDO Performing Organization Address [facility] Co de Phone Number [facility] [place] [address] * (ABNORMAL) Coox2 (08/16/2022 3:58 PM EDT) pO2, Coox 24 mmHg [facility] Hgb Blood Gas 9.4(L) 11.7 - 15.5 g/dL [facility] Oxyhemoglobin, Coox 50.5 % [facility] Carboxyhemoglo bin, Coox 0.5 % [facility] Comment: Nonsmokers: 0.5-1.5% COHB Smokers: Variable, but usually less than 10% Toxic: 20-30% COHB Lethal: Greater than 60% COHB Methemoglobin, Coox 1.1 <=1.5 % [facility] Source Coox Mixed Venous [facility] Blood 08/16/2022 3:58 PM EDT 08/16/2022 3:58 PM EDT Carlos Terry MD POINT OF CARE TEST O GABRIELLA Performing Organization Address City/[facility] Co de Phone Number [facility] [place] [address] * POCT Glucose (08/16/2022 2:15 PM EDT) Glucose, POC 88 65 - 199 mg/dL [facility] Comment: Supplemental ranges: <140 mg/dL before meals <180 mg/dL all other times of the day Blood 08/16/2022 2:15 PM EDT 08/16/2022 2:15 PM EDT Carlos Terry MD POINT OF CARE TEST O RDERAREYMUNDO [facility] [place] [address] * POCT Glucose (08/16/2022 1:11 PM EDT) Glucose, POC 77 65 - 199 mg/dL [facility] Comment: Supplemental ranges: <140 mg/dL before meals <180 mg/dL all other times of the day Blood 08/16/2022 1:11 PM EDT 08/16/2022 1:11 PM EDT Carlos Terry MD POINT OF CARE TEST O GABRIELLA Performing Organization Address City/[facility] Co de Phone Number [facility] [place] [address] * (ABNORMAL) BLOOD GAS 2 ARTERIAL (08/16/2022 12:16 PM EDT) pH, Arterial 7.52(H) 7.35 - 7.45 [facility] PCO2, Arterial 30(L) 35 - 45 mmHg [facility] PO2, Arterial 59(L) 85 - 104 mmHg [facility] Bicarbonate, Arterial 24.2 20.0 - 26.0 mmol/L [facility] Base Excess, Arterial 1.5 -3.0 - 3.0 mmol/L [facility] Hgb Blood Gas 9.6(L) 11.7 - 15.5 g/dL [facility] Oxyhemoglobin, Arterial 91.1(L) 94.0 - 97.0 % [facility] Carboxyhemoglob in, Arterial 1.0 % [facility] Comment: Nonsmokers: 0.5-1.5% COHB Smokers: Variable, but usually less than 10% Toxic: 20-30% COHB Lethal: Greater than 60% COHB Methemoglobin, Arterial 0.7 <=1.5 % [facility] Na Whole Blood 132(L) 135 - 145 mmol/L [facility] K Whole Blood 3.4(L) 3.5 - 5.0 mmol/L [facility] Comment: Please note: Patients with WBC >100,000 may have falsely elevated Potassium levels. Contact the Clinical Chemistry Laboratory if there are any questions. ICa Whole Blood 1.16 1.15 - 1.33 mmol/L [facility] Comment: Note: ??Total bilirubin higher than 20 mg/dL may lead to falsely low ionized calcium. CL Whole Blood 101 98 - 107 mmol/L [facility] Gluc Whole Bld 86 65 - 199 mg/dL [facility] Comment:Diabetes: >=200 mg/d L plus symptoms. Lactate WB 1.8 0.5 - 2.2 mmol/L [facility] FIO2 Art 21 % [facility] PF Ratio Art 281 [facility] Blood 08/16/2022 12:1 6 PM EDT 08/16/2022 12:16 PM EDT Carlos Terry MD POINT OF CARE TEST O RDERABLES Performing Organization Address City/[facility] Co de Phone Number [facility] [place] [address] * (ABNORMAL) Coox2 (08/16/2022 12:11 PM EDT) pO2, Coox 27 mmHg [facility] Hgb Blood Gas 9.2(L) 11.7 - 15.5 g/dL [facility] Oxyhemoglobin, Coox 56.0 % [facility] Carboxyhemoglo bin, Coox 0.9 % [facility] Comment: Nonsmokers: 0.5-1.5% COHB Smokers: Variable, but usually less than 10% Toxic: 20-30% COHB Lethal: Greater than 60% COHB Methemoglobin, Coox 0.7 <=1.5 % [facility] Source Coox Mixed Venous [facility] Blood 08/16/2022 12:1 1 PM EDT 08/16/2022 12:11 PM EDT Carlos Terry MD POINT OF CARE TEST O RDERABLES Performing Organization Address City/[facility]/ZIP Co de Phone Number [facility] [place] [address] * (ABNORMAL) Coox2 (08/16/2022 11:17 AM EDT) pO2, Coox 24 mmHg [facility] Hgb Blood Gas 9.5(L) 11.7 - 15.5 g/dL [facility] Oxyhemoglobin, Coox 49.3 % [facility] Carboxyhemoglo bin, Coox 0.3 % [facility] Comment: Nonsmokers: 0.5-1.5% COHB Smokers: Variable, but usually less than 10% Toxic: 20-30% COHB Lethal: Greater than 60% COHB Methemoglobin, Coox 0.9 <=1.5 % [facility] Source Coox Mixed Venous [facility] Blood 08/16/2022 11:1 7 AM EDT 08/16/2022 11:17 AM EDT Carlos Terry MD POINT OF CARE TEST O RDERABLES [facility] [place] [address] * XR Chest One View (08/16/2022 10:31 [...] who have questions please contact the health pediatric acute care unit nurse that requested your imaging first. ? Electronically signed by: Alfonso Adams MD, [facility] ([phone]), at 08/16/2022 10:56 AM Narrative 08/16/2022 10:56 [...] patients who have questions please contactthe health pediatric acute care unit nurse that requested your imaging first. Electronically signed by: Alfonso Adams MD, [facility]([phone]), at 08/16/2022 10:56 AM Carlos Terry MD IMG DX ORDERABLES * (ABNORMAL) Coox2 (08/16/2022 9:48 AM EDT) pO2, Coox 27 mmHg [facility] Hgb Blood Gas 10.0(L) 11.7 - 15.5 g/dL [facility] Oxyhemoglobin, Coox 56.5 % [facility] Carboxyhemoglo bin, Coox 0.5 % [facility] Comment: Nonsmokers: 0.5-1.5% COHB Smokers: Variable, but usually less than 10% Toxic: 20-30% COHB Lethal: Greater than 60% COHB Methemoglobin, Coox 0.9 <=1.5 % [facility] Source Coox Mixed Venous [facility] Blood 08/16/2022 9:48 AM EDT 08/16/2022 9:48 AM EDT Carlos Terry MD POINT OF CARE TEST O RDERABLES Performing Organization Address City/[facility] Co de Phone Number [facility] [place] [address] * POCT Glucose (08/16/2022 9:47 AM EDT) Glucose, POC 159 65 - 199 mg/dL [facility] Comment: Supplemental ranges: <140 mg/dL before meals <180 mg/dL all other times of the day Blood 08/16/2022 9:47 AM EDT 08/16/2022 9:47 AM EDT Carlos Terry MD POINT OF CARE TEST O RDERABLES Performing Organization Address [facility] Co de Phone Number [facility] [place] [address] * (ABNORMAL) Coox2 (08/16/2022 8:20 AM EDT) pO2, Coox 26 mmHg [facility] Hgb Blood Gas 9.9(L) 11.7 - 15.5 g/dL [facility] Oxyhemoglobin, Coox 48.7 % [facility] Carboxyhemoglo bin, Coox 0.6 % [facility] Comment: Nonsmokers: 0.5-1.5% COHB Smokers: Variable, but usually less than 10% Toxic: 20-30% COHB Lethal: Greater than 60% COHB Methemoglobin, Coox 1.0 <=1.5 % [facility] Source Coox Mixed Venous [facility] Blood 08/16/2022 8:20 AM EDT 08/16/2022 8:20 AM EDT Carlos Terry MD POINT OF CARE TEST O RDERABLES [facility] [address] * (ABNORMAL) BLOOD GAS 2 ARTERIAL (08/16/2022 8:17 AM EDT) pH, Arterial 7.46(H) 7.35 - 7.45 [facility] PCO2, Arterial 36 35 - 45 mmHg [facility] PO2, Arterial 68(L) 85 - 104 mmHg [facility] Bicarbonate, Arterial 24.8 20.0 - 26.0 mmol/L [facility] Base Excess, Arterial 1.0 -3.0 - 3.0 mmol/L [facility] Hgb Blood Gas 10.0(L) 11.7 - 15.5 g/dL [facility] Oxyhemoglobin, Arterial 92.7(L) 94.0 - 97.0 % [facility] Carboxyhemoglob in, Arterial 0.3 % [facility] Comment: Nonsmokers: 0.5-1.5% COHB Smokers: Variable, but usually less than 10% Toxic: 20-30% COHB Lethal: Greater than 60% COHB Methemoglobin, Arterial 0.8 <=1.5 % [facility] Na Whole Blood 134(L) 135 - 145 mmol/L [facility] K Whole Blood 3.6 3.5 - 5.0 mmol/L [facility] Comment: Please note: Patients with WBC >100,000 may have falsely elevated Potassium levels. Contact the Clinical Chemistry Laboratory if there are any questions. ICa Whole Blood 1.14(L) 1.15 - 1.33 mmol/L [facility] Comment: Note: ??Total bilirubin higher than 20 mg/dL may lead to falsely low ionized calcium. CL Whole Blood 101 98 - 107 mmol/L [facility] Gluc Whole Bld 168 65 - 199 mg/dL [facility] Comment:Diabetes: >=200 mg/d L plus symptoms. Lactate WB 2.2 0.5 - 2.2 mmol/L [facility] FIO2 Art 21 % [facility] PF Ratio Art 324 [facility] Blood 08/16/2022 8:17 AM EDT 08/16/2022 8:17 AM EDT Carlos Terry MD POINT OF CARE TEST O RDERABLES Performing Organization Address City/[facility]/ZIP Co de Phone Number [facility] [place] [address] * Potassium (08/16/2022 8:10 AM EDT) Potassium 3.7 3.5 - 5.0 mmol/L [facility] Comment: Please note: ??Patients with WBC [...] Pascal MD CHEMISTRY ORDERABLES Performing Organization Address [facility] Co de Phone Number [facility] [place] [address] * (ABNORMAL) Troponin (08/16/2022 8:10 AM EDT) Troponin-T, High Sensitivity 251(H) <=14 ng/L [facility] Comment: This patient's troponin T concentration [...] troponin value can be found in the [facility] Test Catalog Troponin - [facility] Test Catalog Reference: Fourth [place] Definition of Myocardial Infarction. Journal of the [place] [employer] 2018;72:7035-5275 Blood 08/16/2022 8:10 AM EDT 08/16/2022 8:28 AM EDT Narrative Resulting Agency Comment Spec In Lab Carlos Terry MD CHEMISTRY ORDERABLES Performing Organization Address [facility]/ZIP Co de Phone Number [facility] [place] [address] * POCT Glucose (08/16/2022 5:54 AM EDT) Glucose, POC 194 65 - 199 mg/dL [facility] Comment: Supplemental ranges: <140 mg/dL before meals <180 mg/dL all other times of the day Blood 08/16/2022 5:54 AM EDT 08/16/2022 5:54 AM EDT Carlos Terry MD POINT OF CARE TEST O RDERABLES Performing Organization Address [facility] Co de Phone Number [facility] [place] [address] * (ABNORMAL) Coox2 (08/16/2022 4:44 AM EDT) pO2, Coox 27 mmHg [facility] Hgb Blood Gas 9.8(L) 11.7 - 15.5 g/dL [facility] Oxyhemoglobin, Coox 54.2 % [facility] Carboxyhemoglo bin, Coox 0.8 % [facility] Comment: Nonsmokers: 0.5-1.5% COHB Smokers: Variable, but usually less than 10% Toxic: 20-30% COHB Lethal: Greater than 60% COHB Methemoglobin, Coox 1.0 <=1.5 % [facility] Source Coox Mixed Venous [facility] Blood 08/16/2022 4:44 AM EDT 08/16/2022 4:44 AM EDT Carlos Terry MD POINT OF CARE TEST O RDERABLES [facility] [address] [place] [address] * (ABNORMAL) BLOOD GAS 2 ARTERIAL (08/16/2022 4:41 AM EDT) pH, Arterial 7.47(H) 7.35 - 7.45 [facility] PCO2, Arterial 34(L) 35 - 45 mmHg [facility] PO2, Arterial 71(L) 85 - 104 mmHg [facility] Bicarbonate, Arterial 24.5 20.0 - 26.0 mmol/L [facility] Base Excess, Arterial 0.9 -3.0 - 3.0 mmol/L [facility] Hgb Blood Gas 10.8(L) 11.7 - 15.5 g/dL [facility] Oxyhemoglobin, Arterial 93.2(L) 94.0 - 97.0 % [facility] Carboxyhemoglob in, Arterial 0.7 % [facility] Comment: Nonsmokers: 0.5-1.5% COHB Smokers: Variable, but usually less than 10% Toxic: 20-30% COHB Lethal: Greater than 60% COHB Methemoglobin, Arterial 0.8 <=1.5 % [facility] Na Whole Blood 133(L) 135 - 145 mmol/L [facility] K Whole Blood 3.9 3.5 - 5.0 mmol/L [facility] Comment: Please note: Patients with WBC >100,000 may have falsely elevated Potassium levels. Contact the Clinical Chemistry Laboratory if there are any questions. ICa Whole Blood 1.10(L) 1.15 - 1.33 mmol/L [facility] Comment: Note: ??Total bilirubin higher than 20 mg/dL may lead to falsely low ionized calcium. CL Whole Blood 102 98 - 107 mmol/L [facility] Gluc Whole Bld 216(H) 65 - 199 mg/dL [facility] Comment:Diabetes: >=200 mg/d L plus symptoms. Lactate WB 1.7 0.5 - 2.2 mmol/L [facility] FIO2 Art 25 % [facility] PF Ratio Art 284 [facility] Blood 08/16/2022 4:41 AM EDT 08/16/2022 4:41 AM EDT Carlos Terry MD POINT OF CARE TEST O RDERABLES Performing Organization Address [facility] Co de Phone Number [facility] [place] [address] * Scan, Peripheral Blood (08/16/2022 3:36 AM EDT) Plat estimate Normal [facility] RBC Morphology Abnormal [facility] Ovalocytes 1-5 /HPF [facility] Mcfarland Cells 6-10 /HPF [facility] Toxic Granulation Present [facility] Dohle Bodies Present [facility] Blood 08/16/2022 3:36 AM EDT 08/16/2022 3:43 AM EDT Narrative Resulting Agency Comment Spec In Lab Tyler Cobb MD HEMATOLOGY ORDERABLE S Performing Organization Address [facility] [place] [address] * (ABNORMAL) Differential, Automated (08/16/2022 3:36 AM EDT) Neutrophil % 82.1 % [facility] Neutrophil Absolute 24.49(H) 1.70 - 6.10 x10(3)/mc L [facility] Lymph % 6.3 % [facility] Lymphocytes Abs 1.9 0.9 - 3.2 x10(3)/mc L [facility] Monocyte % 7.4 % [facility] Monocyte Abs 2.2(H) 0.3 - 0.9 x10(3)/mc L [facility] Eos % 0.1 % [facility] Eosinophils Abs 0.0 0.0 - 0.4 x10(3)/mc L [facility] Basophil % 0.5 % [facility] Baso Absolute 0.2(H) 0.0 - 0.1 x10(3)/mc L [facility] Immature Gran % 3.60 % [facility] Comment: Immature granulocytes(IG's)percentage and absolute count will include metamyelocytes, myelocytes, and promyelocytes. Blood smears from CBCs yielding IG's will be scanned manually for concordance. If this scan disagrees with the automated IG or if promyelocytes are noted, a manual differential will be performed. Immature Gran Absolute 1.06(H) 0.00 - 0.04 x10(3)/mc L [facility] Blood 08/16/2022 3:36 AM EDT 08/16/2022 3:43 AM EDT Narrative Resulting Agency Comment Spec In Lab Tyler Cobb MD HEMATOLOGY ORDERABLE S Performing Organization Address City/State/[facility] Co de Phone Number [facility] [place] [address] * (ABNORMAL) Hemogram (08/16/2022 3:36 AM EDT) White Blood Cell 29.8(H) 4.0 - 9.5 x10(3)/mc L [facility] Red Blood Cell 4.63 4.00 - 5.21 x10(6)/ L [facility] Hemoglobin 9.3(L) 11.7 - 15.5 g/dL [facility] Hematocrit 29.8(L) 35.7 - 45.8 % [facility] Mean Cell Volume 64.4(L) 82.6 - 94.4 fL [facility] Mean Cell Hemoglobin 20.1(L) 27.1 - 32.0 pg [facility] Mean Cell Hemoglobin Concentration 31.2(L) 31.7 - 35.0 g/dL [facility] Platelet 295 145 - 357 x10(3)/ L [facility] RDW Standard Deviation 64.3(H) 37.0 - 46.0 fL [facility] RDW coefficient of variation 29.2(H) 11.5 - 14.1 % [facility] Mean Platelet Volume Not Measured 7.6 - 12.9 fL [facility] NRBC% auto 0.5 % [facility] NRBC Absolute 0.150(H) 0.000 - 0.000 x10(3)/mc L [facility] Blood 08/16/2022 3:36 AM EDT 08/16/2022 3:43 AM EDT Narrative Resulting Agency Comment Spec In Lab Tyler Cobb MD HEMATOLOGY ORDERABLE S Performing Organization Address City/State/[facility] Co de Phone Number [facility] [place] [address] * (ABNORMAL) Troponin (08/16/2022 3:36 AM EDT) Troponin-T, High Sensitivity 316(H) <=14 ng/L [facility] Comment: This patient's troponin T concentration [...] troponin value can be found in the [facility] Test Catalog Troponin - [facility] Test Catalog Reference: Fourth [place] Definition of Myocardial Infarction. Journal of the [place] [employer] 2018;72:2875-7037 Blood 08/16/2022 3:36 AM EDT 08/16/2022 3:43 AM EDT Narrative Resulting Agency Comment Spec In Lab Carlos Terry MD CHEMISTRY ORDERABLES Performing Organization Address City/[facility] Co de Phone Number [facility] [place] [address] * Heparin (unfractionated) Level (08/16/2022 3:36 AM EDT) UF Heparin 0.30 IU/mL [facility] Comment: Heparin (anti-Xa) [...] MD HEMATOLOGY ORDERABLE S Performing Organization Address [facility] de Phone Number [facility] [place] [address] * (ABNORMAL) Basic Metabolic Panel (non-fasting) (08/16/2022 3:36 AM EDT) Glucose 213(H) 65 - 199 mg/dL [facility] Comment:Diabetes: >=200 mg/d L plus symptoms Blood Urea Nitrogen 37(H) 8 - 18 mg/dL [facility] Creatinine 1.42(H) 0.70 - 1.20 mg/dL [facility] Sodium 138 135 - 145 mmol/L [facility] Potassium 4.1 3.5 - 5.0 mmol/L [facility] Comment: Please note: ??Patients with WBC >100,000 may have falsely elevated Potassium levels. ??For accurate Potassium quantification in these patients send serum separator tube (gold top) for subsequent determinations. ??Contact the Clinical Chemistry Laboratory if there are any questions. Chloride 103 98 - 107 mmol/L [facility] Carbon Dioxide 24 22 - 31 mmol/L [facility] Anion Gap 11 5 - 15 mmol/L [facility] Calcium 8.1(L) 8.5 - 10.5 mg/dL [facility] Est Glomerular Filtration Rate 42(L) >=60 mL/min/1. 73 m?? [facility] Comment: This patient's estimated GFR was [...] In Lab Carlos Terry MD CHEMISTRY ORDERABLES [facility] [place] [address] * Phosphorus (08/16/2022 3:36 AM EDT) Phosphorus 2.7 2.5 - 4.5 mg/dL [facility] Blood 08/16/2022 3:36 AM EDT 08/16/2022 3:43 AM EDT Narrative Resulting Agency Comment Spec In Lab Richard Pascal MD CHEMISTRY ORDERABLES Performing Organization Address City/[facility]/ZIP Co de Phone Number [facility] [place] [address] * Magnesium (08/16/2022 3:36 AM EDT) Magnesium 0.99 0.69 - 1.07 mmol/L [facility] Blood 08/16/2022 3:36 AM EDT 08/16/2022 3:43 AM EDT Narrative Resulting Agency Comment Spec In Lab Richard Pascal MD CHEMISTRY ORDERABLES [facility] [place] [address] * (ABNORMAL) POCT Glucose (08/16/2022 3:34 AM EDT) Glucose, POC 207(H) 65 - 199 mg/dL [facility] Comment: Supplemental ranges: <140 mg/dL before meals <180 mg/dL all other times of the day Blood 08/16/2022 3:34 AM EDT 08/16/2022 3:34 AM EDT Carlos Terry MD POINT OF CARE TEST O RDERABLES Performing Organization Address City/[facility]/ZIP Co de Phone Number [facility] [place] [address] * EKG 12 Lead (08/16/2022 3:24 AM EDT) Ventricular rate 79 BPM MUSE SYSTEM Atrial Rate 79 BPM MUSE SYSTEM P-R Interval 130 ms MUSE SYSTEM QRS Duration 68 ms MUSE SYSTEM Q-T Interval 396 ms MUSE SYSTEM QTC Calculated (Bezet) 454 ms MUSE SYSTEM Calculated P Pinon -26 degrees MUSE SYSTEM Calculated R Pinon 70 degrees MUSE SYSTEM Calculated T Pinon -123 degrees MUSE SYSTEM INTERPRETATION Normal sinus [...] 2:13 AM EDT) pO2, Coox 27 mmHg [facility] Hgb Blood Gas 10.6(L) 11.7 - 15.5 g/dL [facility] Oxyhemoglobin, Coox 51.3 % [facility] Carboxyhemoglo bin, Coox 0.3 % [facility] Comment: Nonsmokers: 0.5-1.5% COHB Smokers: Variable, but usually less than 10% Toxic: 20-30% COHB Lethal: Greater than 60% COHB Methemoglobin, Coox 1.0 <=1.5 % [facility] Source Coox Mixed Venous [facility] Blood 08/16/2022 2:13 AM EDT 08/16/2022 2:13 AM EDT Carlos Terry MD POINT OF CARE TEST O RDERABLES Performing Organization Address City/[facility] Co de Phone Number [facility] [place] [address] * POCT Glucose (08/16/2022 1:38 AM EDT) Glucose, POC 165 65 - 199 mg/dL [facility] Comment: Supplemental ranges: <140 mg/dL before meals <180 mg/dL all other times of the day Blood 08/16/2022 1:38 AM EDT 08/16/2022 1:38 AM EDT Carlos Terry MD POINT OF CARE TEST O RDERABLES [facility] [place] [address] * POCT Glucose (08/16/2022 1:01 AM EDT) Glucose, POC 136 65 - 199 mg/dL [facility] Comment: Supplemental ranges: <140 mg/dL before meals <180 mg/dL all other times of the day Blood 08/16/2022 1:01 AM EDT 08/16/2022 1:01 AM EDT Carlos Terry MD POINT OF CARE TEST O RDERABLES Performing Organization Address [facility] Co de Phone Number [facility] [place] [address] * (ABNORMAL) Coox2 (08/16/2022 12:04 AM EDT) pO2, Coox 24 mmHg [facility] Hgb Blood Gas 10.5(L) 11.7 - 15.5 g/dL [facility] Oxyhemoglobin, Coox 46.3 % [facility] Carboxyhemoglo bin, Coox 0.3 % [facility] Comment: Nonsmokers: 0.5-1.5% COHB Smokers: Variable, but usually less than 10% Toxic: 20-30% COHB Lethal: Greater than 60% COHB Methemoglobin, Coox 1.2 <=1.5 % [facility] Source Coox Mixed Venous [facility] Blood 08/16/2022 12:0 4 AM EDT 08/16/2022 12:04 AM EDT Carlos Terry MD POINT OF CARE TEST O RDERABLES Performing Organization Address [facility] Co de Phone Number [facility] [place] [address] * (ABNORMAL) BLOOD GAS 2 ARTERIAL (08/15/2022 11:59 PM EDT) pH, Arterial 7.46(H) 7.35 - 7.45 [facility] PCO2, Arterial 36 35 - 45 mmHg [facility] PO2, Arterial 75(L) 85 - 104 mmHg [facility] Bicarbonate, Arterial 24.7 20.0 - 26.0 mmol/L [facility] Base Excess, Arterial 0.8 -3.0 - 3.0 mmol/L [facility] Hgb Blood Gas 10.5(L) 11.7 - 15.5 g/dL [facility] Oxyhemoglobin, Arterial 94.3 94.0 - 97.0 % [facility] Carboxyhemoglob in, Arterial 0.2 % [facility] Comment: Nonsmokers: 0.5-1.5% COHB Smokers: Variable, but usually less than 10% Toxic: 20-30% COHB Lethal: Greater than 60% COHB Methemoglobin, Arterial 0.9 <=1.5 % [facility] Na Whole Blood 135 135 - 145 mmol/L [facility] K Whole Blood 4.5 3.5 - 5.0 mmol/L [facility] Comment: Please note: Patients with WBC >100,000 may have falsely elevated Potassium levels. Contact the Clinical Chemistry Laboratory if there are any questions. ICa Whole Blood 1.15 1.15 - 1.33 mmol/L [facility] Comment: Note: ??Total bilirubin higher than 20 mg/dL may lead to falsely low ionized calcium. CL Whole Blood 101 98 - 107 mmol/L [facility] Gluc Whole Bld 165 65 - 199 mg/dL [facility] Comment:Diabetes: >=200 mg/d L plus symptoms. Lactate WB 2.2 0.5 - 2.2 mmol/L [facility] FIO2 Art 25 % [facility] PF Ratio Art 300 [facility] Blood 08/15/2022 11:5 9 PM EDT 08/15/2022 11:59 PM EDT Carlos Terry MD POINT OF CARE TEST O GABRIELLA Performing Organization Address City/[facility] Co de Phone Number [facility] [place] [address] * (ABNORMAL) POCT Glucose (08/15/2022 9:46 PM EDT) Glucose, POC 211(H) 65 - 199 mg/dL [facility] Comment: Supplemental ranges: <140 mg/dL before meals <180 mg/dL all other times of the day Blood 08/15/2022 9:46 PM EDT 08/15/2022 9:46 PM EDT Carlos Terry MD POINT OF CARE TEST O GABRIELLA Performing Organization Address City/[facility]/ZIP Co de Phone Number [facility] [place] [address] * Potassium (08/15/2022 9:40 PM EDT) Potassium 3.5 3.5 - 5.0 mmol/L [facility] Comment: result rechecked-CORTNEY Please note: ??Patients with WBC >100,000 may have falsely elevated Potassium levels. ??For accurate Potassium quantification in these patients send serum separator tube (gold top) for subsequent determinations. ??Contact the Clinical Chemistry Laboratory if there are any questions. Blood 08/15/2022 9:40 PM EDT 08/15/2022 9:56 PM EDT Narrative Resulting Agency Comment Spec In Lab Richard Pascal MD CHEMISTRY ORDERABLES [facility] [place] [address] * Vancomycin Level, Random (08/15/2022 9:40 PM EDT) Pathologist [facility] Vancomycin, Random 19.5 mg/L [facility] Comment: This level is for determination of the patient's vancomycin yjtg-amdfj-kax-curve (AUC) value. Contact the inpatient pharmacy for interpretation. Blood 08/15/2022 9:40 PM EDT 08/15/2022 9:56 PM EDT Carlos Terry MD CHEMISTRY ORDERABLES Performing Organization Address City/[facility]/ZIP Co de Phone Number [facility] [place] [address] * (ABNORMAL) Coox2 (08/15/2022 8:10 PM EDT) pO2, Coox 24 mmHg [facility] Hgb Blood Gas 10.6(L) 11.7 - 15.5 g/dL [facility] Oxyhemoglobin, Coox 49.8 % [facility] Carboxyhemoglo bin, Coox 0.7 % [facility] Comment: Nonsmokers: 0.5-1.5% COHB Smokers: Variable, but usually less than 10% Toxic: 20-30% COHB Lethal: Greater than 60% COHB Methemoglobin, Coox 0.8 <=1.5 % [facility] Source Coox Mixed Venous [facility] Blood 08/15/2022 8:10 PM EDT 08/15/2022 8:10 PM EDT Carlos Terry MD POINT OF CARE TEST O RDERABLES [facility] [address] [place] [address] * (ABNORMAL) BLOOD GAS 2 ARTERIAL (08/15/2022 8:08 PM EDT) pH, Arterial 7.44 7.35 - 7.45 [facility] PCO2, Arterial 30(L) 35 - 45 mmHg [facility] PO2, Arterial 78(L) 85 - 104 mmHg [facility] Bicarbonate, Arterial 19.7(L) 20.0 - 26.0 mmol/L [facility] Base Excess, Arterial -4.4(L) -3.0 - 3.0 mmol/L [facility] Hgb Blood Gas 9.8(L) 11.7 - 15.5 g/dL [facility] Oxyhemoglobin, Arterial 94.4 94.0 - 97.0 % [facility] Carboxyhemoglob in, Arterial 0.6 % [facility] Comment: Nonsmokers: 0.5-1.5% COHB Smokers: Variable, but usually less than 10% Toxic: 20-30% COHB Lethal: Greater than 60% COHB Methemoglobin, Arterial 0.8 <=1.5 % [facility] Na Whole Blood 135 135 - 145 mmol/L [facility] K Whole Blood 3.1(L) 3.5 - 5.0 mmol/L [facility] Comment: Please note: Patients with WBC >100,000 may have falsely elevated Potassium levels. Contact the Clinical Chemistry Laboratory if there are any questions. ICa Whole Blood 1.08(L) 1.15 - 1.33 mmol/L [facility] Comment: Note: ??Total bilirubin higher than 20 mg/dL may lead to falsely low ionized calcium. CL Whole Blood 107 98 - 107 mmol/L [facility] Gluc Whole Bld 178 65 - 199 mg/dL [facility] Comment:Diabetes: >=200 mg/d L plus symptoms. Lactate WB 1.6 0.5 - 2.2 mmol/L [facility] FIO2 Art 25 % [facility] PF Ratio Art 312 [facility] Blood 08/15/2022 8:08 PM EDT 08/15/2022 8:08 PM EDT Carlos Terry MD POINT OF CARE TEST O RDERAREYMUNDO Performing Organization Address City/[facility]/ZIP Co de Phone Number [facility] [place] [address] * POCT Glucose (08/15/2022 6:03 PM EDT) Glucose, POC 186 65 - 199 mg/dL [facility] Comment: Supplemental ranges: <140 mg/dL before meals <180 mg/dL all other times of the day Blood 08/15/2022 6:03 PM EDT 08/15/2022 6:03 PM EDT Carlos Terry MD POINT OF CARE TEST O RDERAREYMUNDO Performing Organization Address City/[facility] Co de Phone Number [facility] [place] [address] * (ABNORMAL) POCT Glucose (08/15/2022 4:51 PM EDT) Glucose, POC 210(H) 65 - 199 mg/dL [facility] Comment: Supplemental ranges: <140 mg/dL before meals <180 mg/dL all other times of the day Blood 08/15/2022 4:51 PM EDT 08/15/2022 4:51 PM EDT Carlos Terry MD POINT OF CARE TEST O RDERAREYMUNDO Performing Organization Address City/[facility] Co de Phone Number [facility] [place] [address] * Heparin (unfractionated) Level (08/15/2022 4:50 PM EDT) UF Heparin 0.37 IU/mL [facility] Comment: Heparin (anti-Xa) levels [...] MD HEMATOLOGY ORDERABLE S Performing Organization Address [facility] Co de Phone Number [facility] [place] [address] * (ABNORMAL) Coox2 (08/15/2022 4:24 PM EDT) pO2, Coox 29 mmHg [facility] Hgb Blood Gas 11.1(L) 11.7 - 15.5 g/dL [facility] Oxyhemoglobin, Coox 57.4 % [facility] Carboxyhemoglo bin, Coox 0.5 % [facility] Comment: Nonsmokers: 0.5-1.5% COHB Smokers: Variable, but usually less than 10% Toxic: 20-30% COHB Lethal: Greater than 60% COHB Methemoglobin, Coox 0.8 <=1.5 % [facility] Source Coox Mixed Venous [facility] Blood 08/15/2022 4:24 PM EDT 08/15/2022 4:24 PM EDT Carlos Terry MD POINT OF CARE TEST O RDERABLES Performing Organization Address City/[facility] Co de Phone Number [facility] [place] [address] * Vancomycin Level, Random (08/15/2022 4:20 PM EDT) Vancomycin, Random 23.8 mg/L [facility] Comment: This level is for determination of the patient's vancomycin qiep-ycmam-lhh-curve (AUC) value. Contact the inpatient pharmacy for interpretation. Blood Venous Draw / Unknown 08/15/2022 4:20 PM EDT 08/15/2022 4:26 PM EDT Tyler Cobb MD CHEMISTRY ORDERABLES [facility] [place] [address] * (ABNORMAL) Basic Metabolic Panel (non-fasting) (08/15/2022 4:20 PM EDT) Glucose 227(H) 65 - 199 mg/dL [facility] Comment:Diabetes: >=200 mg/d L plus symptoms Blood Urea Nitrogen 39(H) 8 - 18 mg/dL [facility] Creatinine 1.50(H) 0.70 - 1.20 mg/dL [facility] Sodium 138 135 - 145 mmol/L [facility] Potassium 5.0 3.5 - 5.0 mmol/L [facility] Comment: Please note: ??Patients with WBC >100,000 may have falsely elevated Potassium levels. ??For accurate Potassium quantification in these patients send serum separator tube (gold top) for subsequent determinations. ??Contact the Clinical Chemistry Laboratory if there are any questions. Chloride 103 98 - 107 mmol/L [facility] Carbon Dioxide Not Perf 22 - 31 [facility] Comment:Add-on request. Samp le too old to perform test. Anion Gap Unable to Calculate 5 - 15 mmol/L [facility] Calcium 8.4(L) 8.5 - 10.5 mg/dL [facility] Est Glomerular Filtration Rate 39(L) >=60 mL/min/1 .73 m?? [facility] Comment: This patient's estimated GFR was [...] Cobb MD CHEMISTRY ORDERABLES Performing Organization Address [facility] Co de Phone Number [facility] [place] [address] * Potassium (08/15/2022 4:20 PM EDT) Potassium 5.0 3.5 - 5.0 mmol/L [facility] Comment: result rechecked-KT Please note: ??Patients [...] Pascal MD CHEMISTRY ORDERABLES Performing Organization Address [place] [facility] Co de Phone Number [facility] [place] [address] * (ABNORMAL) Heparin (unfractionated) Level (08/15/2022 4:20 PM EDT) UF Heparin 1.17(Crit ical) IU/mL [facility] Comment: Critical Result called by ?? [...] Lab Carlos Terry MD HEMATOLOGY ORDERABLE S [facility] [place] [address] * (ABNORMAL) BLOOD GAS 2 ARTERIAL (08/15/2022 4:16 PM EDT) pH, Arterial 7.38 7.35 - 7.45 [facility] PCO2, Arterial 36 35 - 45 mmHg [facility] PO2, Arterial 78(L) 85 - 104 mmHg [facility] Bicarbonate, Arterial 20.8 20.0 - 26.0 mmol/L [facility] Base Excess, Arterial -4.2(L) -3.0 - 3.0 mmol/L [facility] Hgb Blood Gas 11.0(L) 11.7 - 15.5 g/dL [facility] Oxyhemoglobin, Arterial 94.2 94.0 - 97.0 % [facility] Carboxyhemoglob in, Arterial 0.5 % [facility] Comment: Nonsmokers: 0.5-1.5% COHB Smokers: Variable, but usually less than 10% Toxic: 20-30% COHB Lethal: Greater than 60% COHB Methemoglobin, Arterial 0.8 <=1.5 % [facility] Na Whole Blood 135 135 - 145 mmol/L [facility] K Whole Blood 4.5 3.5 - 5.0 mmol/L [facility] Comment: Please note: Patients with WBC >100,000 may have falsely elevated Potassium levels. Contact the Clinical Chemistry Laboratory if there are any questions. ICa Whole Blood 1.14(L) 1.15 - 1.33 mmol/L [facility] Comment: Note: ??Total bilirubin higher than 20 mg/dL may lead to falsely low ionized calcium. CL Whole Blood 105 98 - 107 mmol/L [facility] Gluc Whole Bld 210(H) 65 - 199 mg/dL [facility] Comment:Diabetes: >=200 mg/d L plus symptoms. Lactate WB 1.8 0.5 - 2.2 mmol/L [facility] FIO2 Art 30 % [facility] PF Ratio Art 260 [facility] SP[facility] Blood 08/15/2022 4:16 PM EDT 08/15/2022 4:16 PM EDT Carlos Terry MD POINT OF CARE TEST O RDERAREYMUNDO Performing Organization Address [facility] Co de Phone Number [facility] [place] [address] * POCT Glucose (08/15/2022 2:01 PM EDT) Glucose, POC 94 65 - 199 mg/dL [facility] Comment: Supplemental ranges: <140 mg/dL before meals <180 mg/dL all other times of the day Blood 08/15/2022 2:01 PM EDT 08/15/2022 2:01 PM EDT Carlos Terry MD POINT OF CARE TEST O RDERAREYMUNDO Performing Organization Address [facility] Co de Phone Number [facility] [place] [address] * POCT Glucose (08/15/2022 1:16 PM EDT) Glucose, POC 89 65 - 199 mg/dL [facility] Comment: Supplemental ranges: <140 mg/dL before meals <180 mg/dL all other times of the day Blood 08/15/2022 1:16 PM EDT 08/15/2022 1:16 PM EDT Carlos Terry MD POINT OF CARE TEST O RDERABLES Performing Organization Address [facility] Co de Phone Number [facility] [place] [address] * POCT Glucose (08/15/2022 1:00 PM EDT) Glucose, POC 69 65 - 199 mg/dL [facility] Comment: Supplemental ranges: <140 mg/dL before meals <180 mg/dL all other times of the day Blood 08/15/2022 1:00 PM EDT 08/15/2022 1:00 PM EDT Carlos Terry MD POINT OF CARE TEST O RDERABLES Performing Organization Address [facility] Co de Phone Number [facility] [place] [address] * Urine culture Indwelling Catheter Urine; Other; sepsis, bacteria on UA (08/15/2022 12:25 PM EDT) Pathologist [facility] Urine Culture 1,000-9,000 cfu/ml Insignificant growth [facility] Indwelling Catheter Urine 08/15/2022 12:25 PM EDT 08/15/2022 12:48 PM EDT Comment:Patient has fever an d at least one of the following clinical symptoms of urinary tract infection (UTI) or additional considerations->Other Narrative Resulting Agency Comment Spec In Lab Carlos Terry MD MICROBIOLOGY - GENER AL ORDERABLES Performing Organization Address [facility] Co de Phone Number [facility] [place] [address] * (ABNORMAL) BLOOD GAS 2 ARTERIAL (08/15/2022 12:18 PM EDT) pH, Arterial 7.37 7.35 - 7.45 [facility] PCO2, Arterial 39 35 - 45 mmHg [facility] PO2, Arterial 92 85 - 104 mmHg [facility] Bicarbonate, Arterial 22.2 20.0 - 26.0 mmol/L [facility] Base Excess, Arterial -3.0 -3.0 - 3.0 mmol/L [facility] Hgb Blood Gas 10.8(L) 11.7 - 15.5 g/dL [facility] Oxyhemoglobin, Arterial 95.6 94.0 - 97.0 % [facility] Carboxyhemoglob in, Arterial 0.5 % [facility] Comment: Nonsmokers: 0.5-1.5% COHB Smokers: Variable, but usually less than 10% Toxic: 20-30% COHB Lethal: Greater than 60% COHB Methemoglobin, Arterial 0.9 <=1.5 % [facility] Na Whole Blood 137 135 - 145 mmol/L [facility] K Whole Blood 4.0 3.5 - 5.0 mmol/L [facility] Comment: Please note: Patients with WBC >100,000 may have falsely elevated Potassium levels. Contact the Clinical Chemistry Laboratory if there are any questions. ICa Whole Blood 1.15 1.15 - 1.33 mmol/L [facility] Comment: Note: ??Total bilirubin higher than 20 mg/dL may lead to falsely low ionized calcium. CL Whole Blood 107 98 - 107 mmol/L [facility] Gluc Whole Bld 57(L) 65 - 199 mg/dL [facility] Comment:Diabetes: >=200 mg/d L plus symptoms. Lactate WB 1.5 0.5 - 2.2 mmol/L [facility] FIO2 Art 30 % [facility] PF Ratio Art 307 [facility] Blood 08/15/2022 12:1 8 PM EDT 08/15/2022 12:18 PM EDT Carlos Terry MD POINT OF CARE TEST O RDERABLES [facility] [place] [address] * (ABNORMAL) Coox2 (08/15/2022 12:13 PM EDT) pO2, Coox 30 mmHg [facility] Hgb Blood Gas 11.1(L) 11.7 - 15.5 g/dL [facility] Oxyhemoglobin, Coox 59.4 % [facility] Carboxyhemoglo bin, Coox 0.4 % [facility] Comment: Nonsmokers: 0.5-1.5% COHB Smokers: Variable, but usually less than 10% Toxic: 20-30% COHB Lethal: Greater than 60% COHB Methemoglobin, Coox 0.9 <=1.5 % [facility] Source Coox Mixed Venous [facility] Blood 08/15/2022 12:1 3 PM EDT 08/15/2022 12:13 PM EDT Carlos Terry MD POINT OF CARE TEST O RDERABLES Performing Organization Address City/[facility] Co de Phone Number [facility] [place] [address] * POCT Glucose (08/15/2022 11:59 AM EDT) Pathologist [facility] Glucose, POC 83 65 - 199 mg/dL [facility] Comment: Supplemental ranges: <140 mg/dL before meals <180 mg/dL all other times of the day Blood 08/15/2022 11:5 9 AM EDT 08/15/2022 11:59 AM EDT Carlos Terry MD POINT OF CARE TEST O HUGHERAREYMUNDO Performing Organization Address [facility] de Phone Number [facility] [place] [address] * COVID-19 PCR (08/15/2022 11:50 AM EDT) [facility] SARS-CoV-2 RNA (Rapid) Not Detected Not Detected [facility] Comment: This result should be interpreted [...] using the [employer]plex[employer] COVID-19 Direct Assay by [employer] as authorized by the FDA issued Emergency [...] Department of Pathology and Laboratory Medicine at [facility], certified under the Clinical Laboratory Improvement Amendments [...] fact sheets at the following FDA website: https://www.fda.gov/medical-devices/ocnqhthsofm-lndtotr-9439-ebfcl-23-cdyttpdvj- use-a qxcswccktrqdx-dkmgtmu-zzwirji/tbypa-zcaabousqin-yslc SARS-CoV-2 Source [employer] Swab [facility] Nasopharyngeal Swab 08/16/19 11:50 AM EDT 08/15/2022 12:36 PM EDT Comment:Specimen Source->Wili opharyngeal Swab Narrative Resulting Agency Comment Spec In Lab Carlos Terry MD MICROBIOLOGY - GENER AL ORDERABLES [facility] [place] [address] * POCT Glucose (08/15/2022 11:22 AM EDT) Glucose, POC 84 65 - 199 mg/dL [facility] Comment: Supplemental ranges: <140 mg/dL before meals <180 mg/dL all other times of the day Blood 08/15/2022 11:2 2 AM EDT 08/15/2022 11:22 AM EDT Carlos Terry MD POINT OF CARE TEST O GABRIELLA Performing Organization Address City/[facility] Co de Phone Number [facility] [place] [address] * POCT Glucose (08/15/2022 10:13 AM EDT) Glucose, POC 123 65 - 199 mg/dL [facility] Comment: Supplemental ranges: <140 mg/dL before meals <180 mg/dL all other times of the day Blood 08/15/2022 10:1 3 AM EDT 08/15/2022 10:13 AM EDT Carlos Terry MD POINT OF CARE TEST O GABRIELLA Performing Organization Address [facility] Co de Phone Number [facility] [place] [address] * ECHO COMPLETE (08/15/2022 10:04 AM EDT) Anatomical Region Laterality Modality Cardiac Other 08/15/2022 9:38 AM EDT Narrative 08/15/2022 10:34 AM EDT ? Echocardiogram Report Name: ISHAN IRVING ? Study Date: 08/15/2022 09:38 AMBP: 102/54 mmHg ? Patient Location: [address] [place] [address] ? HR: 99 : 1960 ? Height: 152 cm ? Account: [id number] Age: 62 yrs ? Weight: 69 kg Gender: Female ?BSA: 1.7 m2 Ordering Physician: HARRISON^CARLOS^M Referring Physician: NIURKA AYALA Performed By: Raissa Bhakta RDCS Reason For Study: Septic shock Exam Location: [facility]. Interpretation Summary -Left ventricle is mildly dilated. [...] today's date, LVEF is slightly improved. Procedure Complete-[id number]. Satisfactory quality. There is normal sinus rhythm. [...] Date: 309:38 AMBP: 102/54 mmHg Patient Location: [id number] HR: 99 : 1960 Height: 152 cm Account: [id number] Age: 62 yrs Weight: 69 kg Gender: Female BSA: 1.7 m2 Ordering Physician: FANY Referring Physician: NIURKA AYALA Performed By: Raissa Bhakta RDCS Reason For Study: Septic shock Exam Location: [facility]. Interpretation Summary -Left ventricle is mildly dilated. [...] today's date, LVEF is slightly improved. Procedure Complete-[id number]. Satisfactory quality. There is normal sinus rhythm. Left Ventricle Left ventricle is mildly dilated. There is no ventricular septal defect.Wall thickness is normal. Left ventricular systolic function is moderatelyreduced. The left ventricular ejection fraction is 37% by Dhal's biplane. Thereare segmental wall motion abnormalities. There [...] Protein, Total 5.6(L) 6.1 - 8.0 g/dL [facility] Albumin 2.4(L) 3.2 - 5.2 g/dL [facility] Aspartate Aminotransferase 21 0 - 30 unit/L [facility] Alanine Aminotransferase 12 0 - 30 unit/L [facility] Alkaline Phosphatase 102 35 - 105 unit/L [facility] Bilirubin, Total <0.2(L) 0.2 - 1.3 mg/dL [facility] Bilirubin, Direct 0.1 0.0 - 0.3 mg/dL [facility] Blood Venous Draw / Unknown 08/15/2022 9:50 AM EDT 08/15/2022 10:04 AM EDT Narrative Resulting Agency Comment Spec In Lab Jigar Streeter MD CHEMISTRY ORDERABLES [facility] [place] [address] * (ABNORMAL) Potassium (08/15/2022 9:50 AM EDT) Potassium 3.2(L) 3.5 - 5.0 mmol/L [facility] Comment: Please note: ??Patients with WBC >100,000 may have falsely elevated Potassium levels. ??For accurate Potassium quantification in these patients send serum separator tube (gold top) for subsequent determinations. ??Contact the Clinical Chemistry Laboratory if there are any questions. Blood 08/15/2022 9:50 AM EDT 08/15/2022 9:59 AM EDT Narrative Resulting Agency Comment Spec In Lab Richard Pascal MD CHEMISTRY ORDERABLES [facility] [place] [address] * (ABNORMAL) Troponin (08/15/2022 9:50 AM EDT) Troponin-T, High Sensitivity 575(H) <=14 ng/L [facility] Comment: This patient's troponin T concentration [...] troponin value can be found in the [facility] Test Catalog Troponin - [facility] Test Catalog Reference: Fourth [place] Definition of Myocardial Infarction. Journal of the [place] [employer] 2018;72:2264-6460 Blood 08/15/2022 9:50 AM EDT 08/15/2022 9:59 AM EDT Narrative Resulting Agency Comment Spec In Lab Carlos Terry MD CHEMISTRY ORDERABLES Performing Organization Address [facility] Co de Phone Number [facility] [place] [address] * Heparin (unfractionated) Level (08/15/2022 8:50 AM EDT) UF Heparin 0.51 IU/mL [facility] ITAL [facility] Comment: Heparin (anti-Xa) [...] MD HEMATOLOGY ORDERABLE S Performing Organization Address [facility] Co de Phone Number [facility] [place] [address] * (ABNORMAL) BLOOD GAS 2 ARTERIAL (08/15/2022 8:49 AM EDT) pH, Arterial 7.36 7.35 - 7.45 [facility] PCO2, Arterial 37 35 - 45 mmHg [facility] PO2, Arterial 78(L) 85 - 104 mmHg [facility] Bicarbonate, Arterial 20.3 20.0 - 26.0 mmol/L [facility] Base Excess, Arterial -5.1(L) -3.0 - 3.0 mmol/L [facility] Hgb Blood Gas 11.3(L) 11.7 - 15.5 g/dL [facility] Oxyhemoglobin, Arterial 93.8(L) 94.0 - 97.0 % [facility] Carboxyhemoglob in, Arterial 0.5 % [facility] Comment: Nonsmokers: 0.5-1.5% COHB Smokers: Variable, but usually less than 10% Toxic: 20-30% COHB Lethal: Greater than 60% COHB Methemoglobin, Arterial 0.8 <=1.5 % [facility] Na Whole Blood 137 135 - 145 mmol/L [facility] K Whole Blood 4.0 3.5 - 5.0 mmol/L [facility] Comment: Please note: Patients with WBC >100,000 may have falsely elevated Potassium levels. Contact the Clinical Chemistry Laboratory if there are any questions. ICa Whole Blood 1.21 1.15 - 1.33 mmol/L [facility] Comment: Note: ??Total bilirubin higher than 20 mg/dL may lead to falsely low ionized calcium. CL Whole Blood 106 98 - 107 mmol/L [facility] Gluc Whole Bld 106 65 - 199 mg/dL [facility] Comment:Diabetes: >=200 mg/d L plus symptoms. Lactate WB 2.9(H) 0.5 - 2.2 mmol/L [facility] FIO2 Art 30 % [facility] PF Ratio Art 260 [facility] Blood 08/15/2022 8:49 AM EDT 08/15/2022 8:49 AM EDT Carlos Terry MD POINT OF CARE TEST O RDERABLES [facility] [place] [address] * XR Abdomen 1 view (Generic) (08/15/2022 [...] who have questions please contact the health pediatric acute care unit nurse that requested your imaging first. ? Electronically signed by: Liliane Adams MD, [facility] ([phone]), at 08/15/2022 9:05 AM Narrative 08/15/2022 9:05 AM EDT EXAMINATION: XR ABDOMEN 1 VIEW (GENERIC) CLINICAL HISTORY: 62 yo F w/ shock, confirm NG tube placement TECHNIQUE: Single radiograph of the lower chest and upper abdomen for purposes of enteric tube verification and otherwise nondiagnostic. The lower abdomen is excluded from [id number]. COMPARISON: Abdominal radiograph 08/15/2022 FINDINGS: * ??An [...] otherwise nondiagnostic. The lower abdomen isexcluded from [id number]. COMPARISON: Abdominal radiograph 08/15/2022 FINDINGS: * An [...] patients who have questions please contactthe health pediatric acute care unit nurse that requested your imaging first. Electronically signed by: Liliane Adams MD, [facility]([phone]), at 08/15/2022 9:05 AM Carlos Terry MD IMG DX ORDERABLES * POCT Glucose (08/15/2022 7:51 AM EDT) Glucose, POC 189 65 - 199 mg/dL [facility] Comment: Supplemental ranges: <140 mg/dL before meals <180 mg/dL all other times of the day Blood 08/15/2022 7:51 AM EDT 08/15/2022 7:51 AM EDT Carlos Terry MD POINT OF CARE TEST O RDERABLES [facility] [place] [address] * Lower Respiratory Culture Sputum Induced (08/15/2022 7:40 AM EDT) Lower Respiratory Culture Rare normal upper respiratory wiley [facility] Gram Stain Many Neutrophils Few squamous epithelial cells Rare mixed bacterial morphotypes suggestive of normal upper respiratory wiley [facility] Sputum Induced 08/15/2022 7: 40 AM EDT 08/15/2022 10:13 AM EDT Narrative Resulting Agency Comment Spec In Lab Carlos Terry MD MICROBIOLOGY - GENER AL ORDERABLES Performing Organization Address City/[facility]/ZIP Co de Phone Number [facility] [place] [address] * EKG 12 Lead (08/15/2022 7:36 AM EDT) Ventricular rate 106 BPM MUSE SYSTEM Atrial Rate 106 BPM MUSE SYSTEM P-R Interval 128 ms MUSE SYSTEM QRS Duration 70 ms MUSE SYSTEM Q-T Interval 362 ms MUSE SYSTEM QTC Calculated (Bezet) 480 ms MUSE SYSTEM Calculated P Pinon 59 degrees MUSE SYSTEM Calculated R Pinon 94 degrees MUSE SYSTEM Calculated T Pinon 160 degrees MUSE SYSTEM INTERPRETATION Sinus tachycardia Rightward axis Low voltage QRS Septal infarct (cited on or before 14-AUG-2022) T wave abnormality, consider anterolateral ischemia Abnormal ECG When compared with ECG of 14-AUG-2022 23:19, Lateral T wave inversion is more prounced QRS axis Shifted right Confirmed by MD Harrison, Carlos Hand ([id number]) on 08/17/2022 6:16:58 PM MUSE SYSTEM 08/15/2022 7:36 AM EDT 08/17/2022 6:16 PM EDT Carlos Terry MD ECG ORDERABLES Performing Organization Address City/[facility]/ZIP Co de Phone Number MUSE SYSTEM * [...] who have questions please contact the health pediatric acute care unit nurse that requested your imaging first. ? Narrative [...] patients who have questions please contactthe health pediatric acute care unit nurse that requested your imaging first. Carlos Terry MD IMG DX ORDERABLES * (ABNORMAL) POCT Glucose (08/15/2022 6:38 AM EDT) Glucose, POC 219(H) 65 - 199 mg/dL [facility] Comment: Supplemental ranges: <140 mg/dL before meals <180 mg/dL all other times of the day Blood 08/15/2022 6:38 AM EDT 08/15/2022 6:38 AM EDT Carlos Terry MD POINT OF CARE TEST O RDERABLES Performing Organization Address City/[facility]/ZIP Co de Phone Number [facility] [place] [address] * (ABNORMAL) Lactate, whole blood, send to lab ([facility] (08/15/2022 5:55 AM EDT) Lactate WB 3.1(H) 0.5 - 2.2 mmol/L [facility] Blood 08/15/2022 5:55 AM EDT 08/15/2022 6:02 AM EDT Narrative Resulting Agency Comment Spec In Lab Carlos Terry MD CHEMISTRY ORDERABLES Performing Organization Address City/[facility] Co de Phone Number [facility] [place] [address] * (ABNORMAL) Coox2 (08/15/2022 5:33 AM EDT) pO2, Coox 34 mmHg [facility] Hgb Blood Gas 11.1(L) 11.7 - 15.5 g/dL [facility] Oxyhemoglobin, Coox 63.7 % [facility] Carboxyhemoglo bin, Coox 0.6 % [facility] Comment: Nonsmokers: 0.5-1.5% COHB Smokers: Variable, but usually less than 10% Toxic: 20-30% COHB Lethal: Greater than 60% COHB Methemoglobin, Coox 1.0 <=1.5 % [facility] Source Coox Mixed Venous [facility] Blood 08/15/2022 5:33 AM EDT 08/15/2022 5:33 AM EDT Carlos Terry MD POINT OF CARE TEST O RDERABLES [facility] [address] [place] [address] * (ABNORMAL) BLOOD GAS 2 ARTERIAL (08/15/2022 5:31 AM EDT) pH, Arterial 7.30(L) 7.35 - 7.45 [facility] PCO2, Arterial 41 35 - 45 mmHg [facility] PO2, Arterial 117(H) 85 - 104 mmHg [facility] Bicarbonate, Arterial 19.6(L) 20.0 - 26.0 mmol/L [facility] Base Excess, Arterial -6.9(L) -3.0 - 3.0 mmol/L [facility] Hgb Blood Gas 11.2(L) 11.7 - 15.5 g/dL [facility] Oxyhemoglobin, Arterial 96.8 94.0 - 97.0 % [facility] Carboxyhemoglob in, Arterial 0.2 % [facility] Comment: Nonsmokers: 0.5-1.5% COHB Smokers: Variable, but usually less than 10% Toxic: 20-30% COHB Lethal: Greater than 60% COHB Methemoglobin, Arterial 0.8 <=1.5 % [facility] Na Whole Blood 140 135 - 145 mmol/L [facility] K Whole Blood 2.7(Critic al) 3.5 - 5.0 mmol/L [facility] [facility] Comment: Noted by dental instrument maker. Please note: Patients with WBC >100,000 may have falsely elevated Potassium levels. Contact the Clinical Chemistry Laboratory if there are any questions. ICa Whole Blood 1.16 1.15 - 1.33 mmol/L [facility] Comment: Note: ??Total bilirubin higher than 20 mg/dL may lead to falsely low ionized calcium. CL Whole Blood 109(H) 98 - 107 mmol/L [facility] Gluc Whole Bld 277(H) 65 - 199 mg/dL [facility] Comment:Diabetes: >=200 mg/d L plus symptoms. Lactate WB 3.6(H) 0.5 - 2.2 mmol/L [facility] FIO2 Art 40 % [facility] PF Ratio Art 292 [facility] Blood 08/15/2022 5:31 AM EDT 08/15/2022 5:31 AM EDT Carlos Terry MD POINT OF CARE TEST O GABRIELLA Performing Organization Address [facility] Co de Phone Number [facility] [place] [address] * (ABNORMAL) POCT Glucose (08/15/2022 5:00 AM EDT) Glucose, POC 280(H) 65 - 199 mg/dL [facility] Comment: Supplemental ranges: <140 mg/dL before meals <180 mg/dL all other times of the day Blood 08/15/2022 5:00 AM EDT 08/15/2022 5:00 AM EDT Carlos Terry MD POINT OF CARE TEST O GABRIELLA Performing Organization Address [facility] de Phone Number [facility] [place] [address] * (ABNORMAL) BLOOD GAS 2 ARTERIAL (08/15/2022 3:11 AM EDT) pH, Arterial 7.25(Criti tonya) 7.35 - 7.45 [facility] Comment:Noted by dental instrument maker. PCO2, Arterial 38 35 - 45 mmHg [facility] PO2, Arterial 112(H) 85 - 104 mmHg [facility] Bicarbonate, Arterial 16.0(L) 20.0 - 26.0 mmol/L [facility] Base Excess, Arterial -11.2(L) -3.0 - 3.0 mmol/L [facility] Hgb Blood Gas 11.0(L) 11.7 - 15.5 g/dL [facility] Oxyhemoglobin, Arterial 96.4 94.0 - 97.0 % [facility] Carboxyhemoglob in, Arterial 0.1 % [facility] Comment: Nonsmokers: 0.5-1.5% COHB Smokers: Variable, but usually less than 10% Toxic: 20-30% COHB Lethal: Greater than 60% COHB Methemoglobin, Arterial 0.9 <=1.5 % [facility] Na Whole Blood 138 135 - 145 mmol/L [facility] K Whole Blood 3.4(L) 3.5 - 5.0 mmol/L [facility] Comment: Please note: Patients with WBC >100,000 may have falsely elevated Potassium levels. Contact the Clinical Chemistry Laboratory if there are any questions. ICa Whole Blood 1.16 1.15 - 1.33 mmol/L [facility] Comment: Note: ??Total bilirubin higher than 20 mg/dL may lead to falsely low ionized calcium. CL Whole Blood 106 98 - 107 mmol/L [facility] Gluc Whole Bld 324(H) 65 - 199 mg/dL [facility] Comment:Diabetes: >=200 mg/d L plus symptoms. Lactate WB 1.9 0.5 - 2.2 mmol/L [facility] FIO2 Art 40 % [facility] PF Ratio Art 280 [facility] Blood 08/15/2022 3:11 AM EDT 08/15/2022 3:11 AM EDT Carlos Terry MD POINT OF CARE TEST O RDERABLES Performing Organization Address City/State/[facility] Co de Phone Number [facility] [address] * (ABNORMAL) Hepatic Function Panel (08/15/2022 3:05 AM EDT) Protein, Total 5.6(L) 6.1 - 8.0 g/dL [facility] Albumin 2.4(L) 3.2 - 5.2 g/dL [facility] Aspartate Aminotransferase 25 0 - 30 unit/L [facility] Alanine Aminotransferase 13 0 - 30 unit/L [facility] Alkaline Phosphatase 99 35 - 105 unit/L [facility] Bilirubin, Total 0.2 0.2 - 1.3 mg/dL [facility] Bilirubin, Direct 0.1 0.0 - 0.3 mg/dL [facility] Blood Venous Draw / Unknown 08/15/2022 3:05 AM EDT 08/15/2022 3:17 AM EDT Narrative Resulting Agency Comment Spec In Lab Vanessa Escalona MD CHEMISTRY ORDERABLE S [facility] [place] [address] * (ABNORMAL) Basic Metabolic Panel (non-fasting) (08/15/2022 3:05 AM EDT) Glucose 378(H) 65 - 199 mg/dL [facility] Comment:Diabetes: >=200 mg/d L plus symptoms Blood Urea Nitrogen 38(H) 8 - 18 mg/dL [facility] Creatinine 1.42(H) 0.70 - 1.20 mg/dL [facility] Sodium 140 135 - 145 mmol/L [facility] Potassium 3.7 3.5 - 5.0 mmol/L [facility] Comment: Please note: ??Patients with WBC >100,000 may have falsely elevated Potassium levels. ??For accurate Potassium quantification in these patients send serum separator tube (gold top) for subsequent determinations. ??Contact the Clinical Chemistry Laboratory if there are any questions. Chloride 104 98 - 107 mmol/L [facility] Carbon Dioxide Not Perf 22 - 31 [facility] Comment:Add-on request. Samp le too old to perform test. Anion Gap Unable to Calculate 5 - 15 mmol/L [facility] Calcium 8.3(L) 8.5 - 10.5 mg/dL [facility] Est Glomerular Filtration Rate 42(L) >=60 mL/min/1 .73 m?? [facility] Comment: This patient's estimated GFR was [...] Narrative Resulting Agency Comment Spec In Lab Tlyer Cobb MD CHEMISTRY ORDERABLES Performing Organization Address [facility] Co de Phone Number [facility] [place] [address] * Scan, Peripheral Blood (08/15/2022 3:05 AM EDT) Pathologist [facility] Plat estimate Increased [facility] RBC Morphology Abnormal [facility] Macrocyte 1[facility]5 /HPF [facility] Microcyte 6-10 /HPF [facility] Comment:Corrected from 1-5 / HPF [NA] on 08/15/22 3:54:48 EDT by Cedric Forbes Hypochromia Moderate [facility] Target Cells 1-5 /HPF [facility] [place] Cells gtr than 10 /HPF [facility] Comment:Corrected from 1-5 / HPF [NA] on 08/15/22 3:54:48 EDT by Cedric Forbes Platelet Clumps Present [facility] Blood 08/15/2022 3:05 AM EDT 08/15/2022 3:16 AM EDT Narrative Resulting Agency Comment Spec In Lab Tyler Cobb MD HEMATOLOGY ORDERABLE S Performing Organization Address City/[facility] Co de Phone Number [facility] [place] [address] * (ABNORMAL) Differential, Automated (08/15/2022 3:05 AM EDT) Neutrophil % 89.8 % [facility] Neutrophil Absolute 35.76(H) 1.70 - 6.10 x10(3)/mc L [facility] Lymph % 2.3 % [facility] Lymphocytes Abs 0.9 0.9 - 3.2 x10(3)/mc L [facility] Monocyte % 4.6 % [facility] Monocyte Abs 1.8(H) 0.3 - 0.9 x10(3)/mc L [facility] Eos % 0.5 % [facility] Eosinophils Abs 0.2 0.0 - 0.4 x10(3)/mc L [facility] Basophil % 0.1 % [facility] Baso Absolute 0.0 0.0 - 0.1 x10(3)/mc L [facility] Immature Gran % 2.70 % [facility] Comment: Immature granulocytes(IG's)percentage and absolute count will include metamyelocytes, myelocytes, and promyelocytes. Blood smears from CBCs yielding IG's will be scanned manually for concordance. If this scan disagrees with the automated IG or if promyelocytes are noted, a manual differential will be performed. Immature Gran Absolute 1.08(H) 0.00 - 0.04 x10(3)/mc L [facility] Blood 08/15/2022 3:05 AM EDT 08/15/2022 3:16 AM EDT Narrative Resulting Agency Comment Spec In Lab Tyler Cobb MD HEMATOLOGY ORDERABLE S [facility] [place] [address] * (ABNORMAL) Hemogram (08/15/2022 3:05 AM EDT) White Blood Cell 39.8(Critica l) 4.0 - 9.5 x10(3)/mc L [facility] Comment: This result has been called to MIROSLAVA BERRY by Cedric Forbes on 08 15 2022 at 0341, and has been read back. Red Blood Cell 5.08 4.00 - 5.21 x10(6)/mc L [facility] Hemoglobin 10.2(L) 11.7 - 15.5 g/dL [facility] Hematocrit 34.4(L) 35.7 - 45.8 % [facility] Mean Cell Volume 67.7(L) 82.6 - 94.4 fL [facility] Mean Cell Hemoglobin 20.1(L) 27.1 - 32.0 pg [facility] Mean Cell Hemoglobin Concentration 29.7(L) 31.7 - 35.0 g/dL [facility] Platelet 350 145 - 357 x10(3)/mc L [facility] RDW Standard Deviation 68.0(H) 37.0 - 46.0 fL [facility] RDW coefficient of variation 29.2(H) 11.5 - 14.1 % [facility] Mean Platelet Volume Not Measured 7.6 - 12.9 fL [facility] NRBC% auto 0.3 % [facility] NRBC Absolute 0.130(H) 0.000 - 0.000 x10(3)/ L [facility] Blood 08/15/2022 3:05 AM EDT 08/15/2022 3:16 AM EDT Narrative Resulting Agency Comment Spec In Lab Tyler Cobb MD HEMATOLOGY ORDERABLE S [facility] [place] [address] * (ABNORMAL) Hemoglobin A1c (08/15/2022 3:05 AM EDT) Hemoglobin A1c 6.2(H) 4.3 - 5.6 % [facility] Comment: Reference Range: 4.3 - 5.6% [...] Mellitus, Diabetes Care 2013; 36: Suppl. 1, C87-15 Estimated Average Glucose 130 mg/dL [facility] Comment: eAG equivalents for HbA1c percentages: [...] into estimated average glucose values. ??Diabetes Care 2008:31(8):6318-2763. Blood 08/15/2022 3:05 AM EDT 08/15/2022 3:16 AM EDT Narrative Resulting Agency Comment Spec In Lab Carlos Terry MD CHEMISTRY ORDERABLES [facility] [place] [address] * Heparin (unfractionated) Level (08/15/2022 3:05 AM EDT) UF Heparin 0.92 IU/mL [facility] Comment: Heparin (anti-Xa) [...] MD HEMATOLOGY ORDERABLE S Performing Organization Address [facility] Co de Phone Number [facility] [place] [address] * (ABNORMAL) Phosphorus (08/15/2022 3:05 AM EDT) Phosphorus 5.3(H) 2.5 - 4.5 mg/dL [facility] Blood 08/15/2022 3:05 AM EDT 08/15/2022 3:16 AM EDT Narrative Resulting Agency Comment Spec In Lab Richard Pascal MD CHEMISTRY ORDERABLES Performing Organization Address [facility] Co de Phone Number [facility] [place] [address] * Magnesium (08/15/2022 3:05 AM EDT) Magnesium 0.90 0.69 - 1.07 mmol/L [facility] Blood 08/15/2022 3:05 AM EDT 08/15/2022 3:16 AM EDT Narrative Resulting Agency Comment Spec In Lab Richard Pascal MD CHEMISTRY ORDERABLES Performing Organization Address [facility] Co de Phone Number [facility] [place] [address] * (ABNORMAL) Urinalysis Microscopic Exam (08/15/2022 1:50 AM EDT) RBC, Urine 15(H) 0 - 4 /HPF [facility] Comment: Interpret results with caution, microscopic results are from suboptimal specimen volume WBC, Urine 5 0 - 5 /HPF [facility] Comment: Interpret results with caution, microscopic results are from suboptimal specimen volume Bacteria, Urine Many(A) None /HPF [facility] Comment: Interpret results with caution, microscopic results are from suboptimal specimen volume Squamous Epithelial Cells Raw Data, Urine 4 <=4 /HPF [facility] Hyaline Casts, Urine <1 0 - 2 /LPF [facility] Comment: Interpret results with caution, microscopic results are from suboptimal specimen volume Indwelling Catheter Urine 08/15/2022 1:50 AM EDT 08/15/2022 1:55 AM EDT Narrative Resulting Agency Comment Spec In Lab Tyler Cobb MD URINE ORDERABLES Performing Organization Address City/[facility]/ZIP Co de Phone Number [facility] [address] * (ABNORMAL) Urinalysis with reflex Culture (08/15/2022 1:50 AM EDT) Glucose, Urine Dipstick Negative Negative mg/dL [facility] Protein, Urine Dipstick Trace(A) Negative mg/dL [facility] Bilirubin, Urine Dipstick Negative Negative mg/dL [facility] Comment: Clinical correlation required for positive Urine Bilirubin results as false positive may occur with some drugs and drug related products. If a false positive is suspected a serum total bilirubin should be considered if clinically indicated. Urobilinogen, Urine Dipstick Normal Normal mg/dL [facility] pH, Urn (dipstick) 5.5 5.0 - 8.0 [facility] Blood, Urine Dipstick Large(A) Negative mg/dL [facility] Ketone, Urine Dipstick Trace(A) Negative mg/dL [facility] Nitrite, Urine Dipstick Negative Negative [facility] Leukocytes, Urine Dipstick Trace(A) Negative mcL [facility] Appearance, Urine Dipstick Cloudy(A) Clear [facility] Specific [place] Urine Automated 1.015 1.005 - 1.030 [facility] Color, Urine Dipstick Yellow Yellow [facility] Reflex to Culture No [facility] Indwelling Catheter Urine 08/15/2022 1:50 AM EDT 08/15/2022 1:55 AM EDT Narrative Resulting Agency Comment Spec In Lab Carlos Terry MD URINE ORDERABLES Performing Organization Address City/[facility]/ZIP Co de Phone Number [facility] [address] * XR Chest One View (08/15/2022 1:14 [...] who have questions please contact the health pediatric acute care unit nurse that requested your imaging first. ? Narrative 08/15/2022 3:55 AM EDT EXAMINATION: XR CHEST ONE VIEW CLINICAL HISTORY: confirm [place] placement TECHNIQUE: 1 view of the chest COMPARISON: 08/15/2022 Procedure Note Davi Terry MD - 08/15/2022 EXAMINATION: XR CHEST ONE VIEW CLINICAL HISTORY: confirm [place] placement TECHNIQUE: 1 view of the chest [...] patients who have questions please contactthe health pediatric acute care unit nurse that requested your imaging first. Carlos Terry MD IMG DX ORDERABLES * (ABNORMAL) Coox2 (08/15/2022 1:13 AM EDT) pO2, Coox 36 mmHg [facility] Hgb Blood Gas 11.4(L) 11.7 - 15.5 g/dL [facility] Oxyhemoglobin, Coox 63.3 % [facility] Carboxyhemoglo bin, Coox 0.6 % [facility] Comment: Nonsmokers: 0.5-1.5% COHB Smokers: Variable, but usually less than 10% Toxic: 20-30% COHB Lethal: Greater than 60% COHB Methemoglobin, Coox 0.8 <=1.5 % [facility] Source Coox Mixed Venous [facility] Blood 08/15/2022 1:13 AM EDT 08/15/2022 1:13 AM EDT Carlos Terry MD POINT OF CARE TEST O RDERABLES [facility] [place] [address] * Blood culture (08/15/2022 1:10 AM EDT) Blood Culture No growth at 5 days. [facility] Blood 08/15/2022 1:10 AM EDT 08/15/2022 2:05 AM EDT Comment:neck Narrative Resulting Agency Comment Spec In Lab Carlos Terry MD MICROBIOLOGY - BLOOD ORDERABLES Performing Organization Address City/[facility]/ZIP Co de Phone Number [facility] [place] [address] * XR Chest One View (08/15/2022 1:00 [...] who have questions please contact the health pediatric acute care unit nurse that requested your imaging first. ? Narrative [...] patients who have questions please contactthe health pediatric acute care unit nurse that requested your imaging first. Carlos Terry MD IMG DX ORDERABLES * MRSA PCR Screen ([facility]/CGP/APD/NLH) (08/15/2022 12:50 AM EDT) [facility] MRSA PCR Negative Negative [facility] MRSA (Interp) Methicillin-resist ant Staphylococcus aureus (MRSA) is NOT DETECTED The MRSA target DNA sequences (mec and SCC) were not detected within the acceptable ranges using the Xpert MRSA NxG on the GeneXpert Dx System (Page Mage). This suggests the absence of MRSA in the patient specimen submitted for testing. This test is cleared by the U.S. Food and Drug Administration for clinical use and its performance characteristics have been verified by the [facility] at [facility]. This result does not rule out the presence of any other organisms. Rare false negative results may occur if MRSA is present at low concentrations with much higher concentrations of other organisms including MRSE or S. aureus with an empty SCC cassette. [facility] Comment: [VERIFIED DATE]08.17.22 Verified By:Shannon Smiley (Electronic Signature) Nasopharyngeal Swab 08/16/19 12:50 AM EDT 08/17/2022 8:38 AM EDT Comment:Specimen Type->Nasop haryngeal Swab Narrative Resulting Agency Comment Spec In Lab Carlos Terry MD MOLECULAR ORDERABLES [facility] [place] [address] * TSH [place] (08/15/2022 12:00 AM EDT) [facility] Thyroid Stimulating Hormone 0.28 0.27 - 4.20 mcIU/mL [facility] Comment: Reference Interval (mcIU/mL): Females: ??First Trimester: 0.23-3.88 ??Second Trimester: 0.22-3.90 ??Third Trimester: 0.44-4.66 Blood Venous Draw / Unknown 08/15/2022 08/15/2022 12:26 AM EDT Narrative Resulting Agency Comment Spec In Lab Jigar Streeter MD CHEMISTRY ORDERABLES Performing Organization Address [facility] Co de Phone Number [facility] [place] [address] * Gold Tube HOLD (08/15/2022 12:00 AM EDT) Gold Hold Sample in lab. [facility] Blood Venous Draw / Unknown 08/15/2022 08/15/2022 12:16 AM EDT Tyler Cobb MD CHEMISTRY ORDERABLES Performing Organization Address [facility] Co de Phone Number [facility] [place] [address] * (ABNORMAL) APTT (08/15/2022 12:00 AM EDT) Partial Thromboplastin Time 154(Criti tonya) 25 - 37 sec [facility] Comment: Critical Result called by ?? [...] MD HEMATOLOGY ORDERABLE S Performing Organization Address City/[facility] Co de Phone Number [facility] [place] [address] * (ABNORMAL) Prothrombin Time (08/15/2022 12:00 AM EDT) Prothrombin Time 22.3(H) 9.4 - 12.5 sec [facility] International Normalization Ratio 2.0 [facility] Comment: An INR <2.0 indicates adequate [...] Lab Carlos Terry MD HEMATOLOGY ORDERABLE S [facility] [place] [address] * (ABNORMAL) BLOOD GAS 2 ARTERIAL (08/14/2022 11:57 PM EDT) pH, Arterial 7.25(Criti tonya) 7.35 - 7.45 [facility] Comment:Noted by dental instrument maker. PCO2, Arterial 42 35 - 45 mmHg [facility] PO2, Arterial 242(H) 85 - 104 mmHg [facility] Bicarbonate, Arterial 17.9(L) 20.0 - 26.0 mmol/L [facility] Base Excess, Arterial -9.3(L) -3.0 - 3.0 mmol/L [facility] Hgb Blood Gas 11.2(L) 11.7 - 15.5 g/dL [facility] Oxyhemoglobin, Arterial 98.0(H) 94.0 - 97.0 % [facility] Carboxyhemoglob in, Arterial 0.3 % [facility] Comment: Nonsmokers: 0.5-1.5% COHB Smokers: Variable, but usually less than 10% Toxic: 20-30% COHB Lethal: Greater than 60% COHB Methemoglobin, Arterial 0.9 <=1.5 % [facility] Na Whole Blood 140 135 - 145 mmol/L [facility] K Whole Blood 3.5 3.5 - 5.0 mmol/L [facility] Comment: Please note: Patients with WBC >100,000 may have falsely elevated Potassium levels. Contact the Clinical Chemistry Laboratory if there are any questions. ICa Whole Blood 1.16 1.15 - 1.33 mmol/L [facility] Comment: Note: ??Total bilirubin higher than 20 mg/dL may lead to falsely low ionized calcium. CL Whole Blood 110(H) 98 - 107 mmol/L [facility] Gluc Whole Bld 235(H) 65 - 199 mg/dL [facility] Comment:Diabetes: >=200 mg/d L plus symptoms. Lactate WB 2.6(H) 0.5 - 2.2 mmol/L [facility] FIO2 Art 60 % [facility] PF Ratio Art 403 [facility] Blood 08/14/2022 11:5 7 PM EDT 08/14/2022 11:57 PM EDT Carlos Terry MD POINT OF CARE TEST O RDERABLES Performing Organization Address City/[facility]/ZIP Co de Phone Number [facility] [place] [address] * Scan, Peripheral Blood (08/14/2022 11:55 PM EDT) Plat estimate Increased [facility] RBC Morphology Abnormal [facility] Microcyte 6-10 /HPF [facility] Hypochromia Moderate [facility] PITAL LABOR[facility]ORY Connor Cells gtr than 10 /HPF [facility] SPITAL LABORATORY Platelet Clumps Present [facility] Blood 08/14/2022 11:5 5 PM EDT 08/15/2022 12:06 AM EDT Narrative Resulting Agency Comment Spec In Lab Tyler Cobb MD HEMATOLOGY ORDERABLE S Performing Organization Address City/[facility]/ZIP Co de Phone Number [facility] [place] [address] * Vancomycin Level, Random (08/14/2022 11:55 PM EDT) Vancomycin, Random 12.1 mg/L M [facility] Comment: This level is for determination of the patient's vancomycin vdhd-ffhvc-tjs-curve (AUC) value. Contact the inpatient pharmacy for interpretation. Blood Venous Draw / Unknown 08/14/2022 11:55 PM EDT 08/15/2022 12:11 AM EDT Carlos Terry [place] [address] * (ABNORMAL) Differential, Automated (08/14/2022 11:55 PM EDT) Neutrophil % 91.3 % [facility] Neutrophil Absolute 33.56(H) 1.70 - 6.10 x10(3)/mc L [facility] Lymph % 1.2 % [facility] Lymphocytes Abs 0.4(L) 0.9 - 3.2 x10(3)/mc L [facility] Monocyte % 4.4 % [facility] Monocyte Abs 1.6(H) 0.3 - 0.9 x10(3)/mc L [facility] Eos % 0.5 % [facility] Eosinophils Abs 0.2 0.0 - 0.4 x10(3)/mc L [facility] Basophil % 0.5 % [facility] Baso Absolute 0.2(H) 0.0 - 0.1 x10(3)/mc L [facility] Immature Gran % 2.10 % [facility] Comment: Immature granulocytes(IG's)percentage and absolute count will include metamyelocytes, myelocytes, and promyelocytes. Blood smears from CBCs yielding IG's will be scanned manually for concordance. If this scan disagrees with the automated IG or if promyelocytes are noted, a manual differential will be performed. Immature Gran Absolute 0.77(H) 0.00 - 0.04 x10(3)/mc L [facility] Blood 08/14/2022 11:5 5 PM EDT 08/15/2022 12:06 AM EDT Narrative Resulting Agency Comment Spec In Lab Tyler Cobb MD HEMATOLOGY ORDERABLE S Performing Organization Address City/[facility]/[place] [address] * (ABNORMAL) Hemogram (08/14/2022 11:55 PM EDT) White Blood Cell 36.7(Critica l) 4.0 - 9.5 x10(3)/mc L [facility] Comment: This result has been called to HARLEY CASON by Cedric Forbes on 08 15 2022 at 0018, and has been read back. Red Blood Cell 5.28(H) 4.00 - 5.21 x10(6)/mc L [facility] Hemoglobin 10.7(L) 11.7 - 15.5 g/dL [facility] Hematocrit 35.9 35.7 - 45.8 % [facility] Mean Cell Volume 68.0(L) 82.6 - 94.4 fL [facility] Mean Cell Hemoglobin 20.3(L) 27.1 - 32.0 pg [facility] Mean Cell Hemoglobin Concentration 29.8(L) 31.7 - 35.0 g/dL [facility] Platelet 370(H) 145 - 357 x10(3)/mc L [facility] RDW Standard Deviation 68.2(H) 37.0 - 46.0 fL [facility] RDW coefficient of variation 29.3(H) 11.5 - 14.1 % [facility] Mean Platelet Volume Not Measured 7.6 - 12.9 fL [facility] NRBC% auto 0.2 % [facility] NRBC Absolute 0.080(H) 0.000 - 0.000 x10(3)/mc L [facility] Blood 08/14/2022 11:5 5 PM EDT 08/15/2022 12:06 AM EDT Narrative Resulting Agency Comment Spec In Lab Tyler Cobb MD HEMATOLOGY ORDERABLE S [facility] [place] [address] * Blood culture (08/14/2022 11:55 PM EDT) Blood Culture No growth at 5 days. [facility] Blood 08/14/2022 11:5 5 PM EDT 08/15/2022 1:51 AM EDT Comment:R wrist Narrative Resulting Agency Comment Spec In Lab Carlos eTrry MD MICROBIOLOGY - BLOOD ORDERABLES Performing Organization Address City/[facility] Co de Phone Number [facility] [place] [address] * (ABNORMAL) pro-Brain Natriuretic Peptide (08/14/2022 11:55 PM EDT) NT-proBNP >35,000(H) <=124 pg/mL [facility] Blood 08/14/2022 11:5 5 PM EDT 08/15/2022 12:06 AM EDT Narrative Resulting Agency Comment Spec In Lab Carlos Terry MD CHEMISTRY ORDERABLES Performing Organization Address [facility] Co de Phone Number [facility] [place] [address] * (ABNORMAL) Phosphorus (08/14/2022 11:55 PM EDT) Phosphorus 5.9(H) 2.5 - 4.5 mg/dL [facility] Blood 08/14/2022 11:5 5 PM EDT 08/15/2022 12:06 AM EDT Narrative Resulting Agency Comment Spec In Lab Carlos Terry MD CHEMISTRY ORDERABLES Performing Organization Address [facility] Co de Phone Number [facility] [place] [address] * Magnesium (08/14/2022 11:55 PM EDT) Magnesium 0.97 0.69 - 1.07 mmol/L [facility] Blood 08/14/2022 11:5 5 PM EDT 08/15/2022 12:06 AM EDT Narrative Resulting Agency Comment Spec In Lab Carlos Terry MD CHEMISTRY ORDERABLES Performing Organization Address City/[facility] Co de Phone Number [facility] [place] [address] * (ABNORMAL) Troponin (08/14/2022 11:55 PM EDT) Troponin-T, High Sensitivity 617(H) <=14 ng/L [facility] Comment: This patient's troponin T concentration [...] troponin value can be found in the [facility] Test Catalog Troponin - [facility] Test Catalog Reference: Fourth [place] Definition of Myocardial Infarction. Journal of the [place] [employer] 2018;72:3627-5490 Blood 08/14/2022 11:5 5 PM EDT 08/15/2022 12:06 AM EDT Narrative Resulting Agency Comment Spec In Lab Carlos Terry MD CHEMISTRY ORDERABLES [facility] [place] [address] * (ABNORMAL) Basic Metabolic Panel (non-fasting) (08/14/2022 11:55 PM EDT) Glucose 258(H) 65 - 199 mg/dL [facility]PITAL [facility] Comment:Diabetes: >=200 mg/d L plus symptoms Blood Urea Nitrogen 36(H) 8 - 18 mg/dL [facility] Creatinine 1.40(H) 0.70 - 1.20 mg/dL [facility] Sodium 141 135 - 145 mmol/L [facility] Potassium 4.0 3.5 - 5.0 mmol/L [facility] Comment: Please note: ??Patients with WBC >100,000 may have falsely elevated Potassium levels. ??For accurate Potassium quantification in these patients send serum separator tube (gold top) for subsequent determinations. ??Contact the Clinical Chemistry Laboratory if there are any questions. Chloride 107 98 - 107 mmol/L [facility] Carbon Dioxide 17(L) 22 - 31 mmol/L [facility] Anion Gap 17(H) 5 - 15 mmol/L [facility] Calcium 8.5 8.5 - 10.5 mg/dL [facility] Est Glomerular Filtration Rate 43(L) >=60 mL/min/1. 73 m?? [facility] Comment: This patient's estimated GFR was [...] In Lab Carlos Terry MD CHEMISTRY ORDERABLES [facility] [place] [address] * (ABNORMAL) Point of Care Blood Gas Historical (08/14/2022 10:32 PM EDT) pH, POC 7.15(Crit ical) 7.35 - 7.45 [facility] Comment:Critical result OK - [facility] pCO2, POC 68(Critic al) 35 - 45 mmHg [facility] Comment:Critical result OK - [facility] pO2, POC 47(Critic al) 85 - 104 mmHg [facility] Comment:Critical result OK - [facility] Base Excess, POC -5.0(L) -3.0 - 3.0 mmol/L [facility] Bicarbonate, POC 23.9 20.0 - 26.0 mmol/L [facility] Sodium, POC 142 135 - 145 mmol/L [facility] POC Potassium 3.8 3.5 - 5.0 mmol/L [facility] Ionized Calcium, POC 1.21 1.15 - 1.33 mmol/L [facility] POC Hematocrit 36.0 34.0 - 45.0 % [facility] POC Calc Hgb 12.2 11.2 - 15.7 g/dL [facility] Comment:The calculation of h emoglobin from hematocrit assumes a normal MCHC. POC Bgas Loc DHART [facility] SPITAL LABORATORY Blood 08/14/2022 10:3 2 PM EDT 08/16/2022 12:00 PM EDT Carlos Terry MD CHEMISTRY ORDERABLES [facility] [place] [phone] * Film Library- Storage Only DX Chest (08/14/2022 12:00 AM EDT) Narrative Dicom, Auditing User - 08/15/2022 8:43 AM EDT This exam is auto-finalizing. It's purpose is for storage only. Audi Serna MD [facility] FILM LIBRARY ORD ERABLES * Film Library- Storage Only CT Head (08/13/2022 12:00 AM EDT) Narrative Dicom, Auditing User - 08/15/2022 8:36 AM EDT This exam is auto-finalizing. It's purpose is for storage only. Audi Serna MD [facility] FILM LIBRARY ORD ERABLES * Film Library- Storage Only DX Chest (08/12/2022 12:05 AM EDT) Narrative Dicom, Auditing User - 08/15/2022 8:37 AM EDT This exam is auto-finalizing. It's purpose is for storage only. Audi Serna MD [facility] FILM LIBRARY ORD ERABLES * Film Library- Storage Only CT Chest (08/12/2022 12:00 AM EDT) Narrative Dicom, Auditing User - 08/15/2022 8:36 AM EDT This exam is auto-finalizing. It's purpose is for storage only. Audi Serna MD [facility] FILM LIBRARY ORD ERABLES * Film Library- Storage Only DX Chest (08/08/2022 12:15 AM EDT) Narrative Dicom, Auditing User - 08/15/2022 8:43 AM EDT This exam is auto-finalizing. It's purpose is for storage only. Audi Serna MD [facility] FILM LIBRARY ORD ERABLES * Film Library- Storage Only DX Pelvis (08/08/2022 12:10 AM EDT) Narrative Dicom, Auditing User - 08/15/2022 8:37 AM EDT This exam is auto-finalizing. It's purpose is for storage only. Audi Serna MD [facility] FILM LIBRARY ORD ERABLES * Film Library- Storage Only DX Lower Extremity (08/08/2022 12:05 AM EDT) Narrative Dicom, Auditing User - 08/15/2022 8:37 AM EDT This exam is auto-finalizing. It's purpose is for storage only. Audi Serna MD [place] FILM LIBRARY ORD ERABLES documented in this encounter Visit Diagnoses Not on filedocumented in this encounter Admitting Diagnoses Diagnosis Shock Shock, unspecified documented in this encounter Administered Medications Inactive Administered Medications - up to 3 most recent administrations Medication Order MAR Action Action Date Dose Rate Site acetaminophen (Tylenol) tablet 650 mg 650 mg, [...] Given 09/24/2022 4:46 PM EDT 650 mg atorvastatin (Lipitor) tablet 80 mg 80 mg, Per G Tube, EVERY EVENING, First dose (after last modification) on 09/12/22 at 1700, Until Discontinued, Routine Given 09/24/2022 4:46 PM EDT 80 mg Given 09/23/2022 4:49 PM EDT 80 mg Given 09/22/2022 4:04 PM EDT 80 mg bisacodyL (Dulcolax) suppository 10 mg 10 [...] Given 09/23/2022 8:36 AM EDT 100 mg chlorhexidine (Peridex) 0.12 % oral solution 15 mL 15 mL, Oral, 2 TIMES DAILY, First dose on 08/15/22 at 1000, Until Discontinued, Routine Given 09/25/2022 8:23 AM E DT 15 mLs Given 09/24/2022 8:46 PM EDT 15 mLs Given 09/24/2022 9:14 AM EDT 15 mLs dextrose 10% infusion 250 mL, at 1,000 [...] 4:57 PM EDT 250 mLs 1000 mL/hr diclofenac (Voltaren) gel Topical (Top), 4 [...] Given 09/11/2022 2:41 AM EDT 4 g empagliflozin (Jardiance) tablet 10 mg 10 mg, [...] on Wed08/24/22 at 1030, Until Discontinued, Routine Given 09/24/2022 9:15 AM EDT 40 mg Right Lower Quadrant Given 09/23/2022 8:37 AM EDT 40 mg Le ft Lower Quadrant Given 09/22/2022 9:27 AM EDT 40 mg ergocalciferoL (vitamin D2) (8,000 units/mL) oral liquid 50,000 Units 50,000 Units, Per G Tube, WEEKLY, 5 doses, First dose (after last modification) on Wed09/15/22 at 0900, Last dose on Wed10/13/22 at 0900, Routine Given 09/22/2022 9:26 AM EDT 50,000 Units Given 09/15/2022 9:34 AM EDT 50,000 Units ferrous sulfate (60 mg/mL) oral liquid 300 [...] Given 09/23/2022 8:36 AM EDT 1,000 mcg gabapentin (Neurontin) capsule 300 mg 300 mg, [...] weight of tube = 37.5 grams.), Routine insulin glargine-ygfn (Semglee) (100 unit/mL) subcutaneous injection vial 10 Units 10 Units, Subcutaneous, DAILY, First dose (after last modification) on Wed09/25/22 at 0900, Until Discontinued, Routine Given 09/25/2022 8:24 AM EDT 10 Units Right Upper Outer Quadrant insulin lispro (HumaLOG;Admelog) (100 unit/mL) subcutaneous injection [...] Given 09/24/2022 4:47 PM EDT 8 Units melatonin tablet 6 mg 6 mg, Per G Tube, NIGHTLY, First dose (after last modification) on Wed09/12/22 at 2100, Until Discontinued, Routine Given 09/24/2022 8:46 PM EDT 6 mg Given 09/23/2022 8:05 PM EDT 6 mg Given 09/22/2022 8:06 PM EDT 6 mg metoproloL tartrate (Lopressor) tablet 25 mg 25 mg, Per G Tube, EVERY 12 HOURS SCHEDULED (2 times per day), First dose (after last modification) on Wed09/16/22 at 0900, Until Discontinued, Routine Given 09/25/2022 8:23 AM EDT 25 mg Given 09/24/2022 8:46 PM EDT 25 mg Given 09/24/2022 9:17 AM EDT 25 mg ondansetron (Zofran) tablet 8 mg 8 mg, Per G Tube, EVERY 8 HOURS PRN, Starting on Wed09/17/22 at 2212, Until Wed09/25/22 at 1327, Nausea, Vomiting, Routine Given 09/25/2022 8:44 AM EDT 8 mg Given 09/24/2022 9:16 AM EDT 8 mg Given 09/23/2022 11:31 AM EDT [address] (Protonix) granules 40 mg [...] Given 09/24/2022 9:16 AM EDT 40 mg polyethylene glycoL (Miralax) packet 17 g 17 [...] Tube, EVERY 6 HOURS PRN, Starting on Wed09/20/22 at 1236, Until Wed09/25/22 at 1327, Nausea, Vomiting, Maximum dose: 50 mg / 24 hrs, Routine Given 09/20/2022 12:46 PM EDT 10 mg protein powder 2 Scoop, Per G Tube, [...] Given 09/22/2022 8:06 PM EDT 100 mg sacubitriL-valsartan (Entresto) 24-26 mg per tablet [...] Given 09/24/2022 9:17 AM EDT 5 mLs spironolactone (Aldactone) (2 mg/mL) oral liquid 12.5 mg 12.5 mg, Per G Tube, DAILY, First dose (after last modification) on Wed09/16/22 at 0900, Until Discontinued, Routine Given 09/25/2022 8:23 AM EDT 12.5 mg Given 09/24/2022 9:14 AM EDT 12.5 mg Given 09/23/2022 8:39 AM EDT 12.5 mg thiamine (Vitamin B1) tablet 100 mg 100 mg, Per G Tube, DAILY, First dose on Wed09/13/22 at 0900, Until Discontinued, Routine Given 09/25/2022 8:22 AM E DT 100 mg Given 09/24/2022 9:16 AM EDT 100 mg Given 09/23/2022 8:37 AM EDT 100 mg tube feeding diet 1,008 mL, Per G Tube, at 72 mL/hr, Cyclic-(Tube feed), Starting on Wed09/18/22 at 0600, Until Wed09/25/22 at 1327, Cycle x 14 hrs from [id number] daily Administer flushes and check residuals per policy, Which tube feed product? Nutren 1.5, Additional Information (if any): Cycle x 14 hrs from [id number] daily New Bag 09/24/2022 6:16 AM EDT 1,008 mLs 72 mL/hr New Bag 09/23/2022 8:10 PM EDT 1,008 mLs 72 mL/hr New Bag 09/23/2022 6:00 AM EDT 1,008 mLs 72 mL/hr Valproate (Depakene) (50 mg/mL) oral liquid 300 mg 300 mg, Per G Tube, EVERY 6 HOURS, First dose (after last modification) on Wed09/12/22 at 0900, Until Discontinued, Routine Given 09/25/2022 8:23 AM EDT 300 mg Given 09/25/2022 3:46 AM EDT 300 mg Given 09/24/2022 8:46 PM EDT 300 mg documented in this encounter Active and [...] Harding RN)1648 (Given - Provider: Leann Harding RN)2004 (Given - Provider: Sofia Montoya RN) 0916 (Given - Provider: Leann Harding RN)1235 (Given - Provider: Leann Harding RN)164 (Given [...] on 08/15/22 at 1000, Until Discontinued, Routine 0837 (Given [...] 0822 (Given - Provider: Leann Harding RN) gabapentin (Neurontin) capsule 300 mg 300 mg, Per G Tube, 3 TIMES DAILY, First dose (after last modification) on Wed09/21/22 at 2100, Until Discontinued, Routine 0836 (Given - Provider: Leann Harding RN)1500 (Given - Provider: Leann Harding RN)2005 (Given - Provider: Sofia Montoya, ERI) 0916 (Given - Provider: Leann Harding RN)1424 (Given - Provider: Leann Harding RN)2045 (Given - Provider: Nubia Greenwood, ERI) 08 (Given - Provider: Leann Harding RN) insulin [...] on Wed09/25/22 at 0900, Until Discontinued, Routine 08 (Given - Provider: Leann Harding RN) insulin [...] Comment: 1400 RECHECK IS 276, COVERED PER ORDER)1630 (Not Given - Provider: Leann Harding RN - Reason: Order parameters not met - Comment: bg 94)2014 (Given - Provider: Sofia Montoya RN - Comment: BG 226) 0638 (Given - Provider: Sofia Montoya RN - Comment: BG 186)1153 (Given - Provider: Leann Harding RN)164 (Given - Provider: Leann Harding RN)2045 (Given - Provider: Nubia Greenwood RN) 06 (Given - Provider: Nubia Greenwood RN) melatonin [...] RN)2045 (Given - Provider: Nubia Greenwood RN) 822 (Given - Provider: Leann Harding RN) pantoprazole [...] until the syringe is clear of granules. 835 (Given - Provider: Leann Harding RN)2004 (Given - Provider: Sofia Montoya RN) 915 (Given - Provider: Leann Harding RN)2045 (Given - Provider: Nubia Greenwood, ERI) 821 (Given - Provider: Leann Harding RN) protein powder 2 Scoop, Per G Tube, DAILY, First dose on Wed09/18/22 at 0900, Until Discontinued, Routine 899 (Given - Provider: Leann Harding RN) [...] hours (due to risk of angioedema)? Yes 08 (Given - Provider: Leann Harding RN)2005 (Given [...] RN) 0917 (Given - Provider: Leann Harding RN)204 (Given - Provider: Nubia Greenwood, ERI) 0825 (Given - Provider: Leann Harding RN) [...] HOURS, First dose (after last modification) on Wed09/12/22 at 0900, Until Discontinued, Routine 0312 (Given - Provider: Sofia Montoya, ERI)0837 (Given - Provider: Leann Harding RN)1500 (Given - Provider: Leann Harding RN)2008 (Given - Provider: Sofia Montoya, ERI) 0321 (Given - Provider: Sofia Montoya, ERI)0914 (Given - Provider: Leann Harding RN)1424 (Given - Provider: Leann Harding RN)204 (Given - Provider: Nubia Greenwood, ERI) 0346 (Given - Provider: Nubia Greenwood, ERI)0823 (Given - Provider: Leann Harding RN) Continuous Medication Order 09/23/2022 09/24/2022 09/25/2022 tube feeding diet 1,008 mL, Per G Tube, at 72 mL/hr, Cyclic-(Tube feed), Starting on Wed09/18/22 at 0600, Until Wed09/25/22 at 1327, Cycle x 14 hrs from 3176-2961 daily Administer flushes and check residuals per policy, Which tube feed product? Nutren 1.5, Additional Information (if any): Cycle x 14 hrs from 1822-0425 daily 0600 (New Bag - Provider: Sofia Montoya, ERI)2009 (New Bag - Provider: Sofia Montoya RN) 615 (New Bag - Provider: Sofia Montoya RN)2035 (Stopped - Provider: Nubia Greenwood RN) PRN Medication Order 09/23/2022 09/24/2022 09/25/2022 bisacodyL (Dulcolax) suppository 10 mg 10 mg, Rectal, DAILY PRN, Starting on Tu08/25/22 at 1129, Until Wed09/25/22 at 1327, Constipation, [...] Starting on Betty 09/17/22 at 2212, Until Wed09/25/22 at 1327, Nausea, Vomiting, Routine 1131 (Given - Provider: Mel Hernandez RN) 0916 (Given - Provider: Leann Harding, ERI) 0844 (Given - Provider: Leann Harding, ERI) polyethylene glycoL (Miralax) packet 17 g 17 [...] Tube, EVERY 6 HOURS PRN, Starting on Wed09/20/22 at 1236, Until Wed09/25/22 at 1327, Nausea, [...] documented as of this encounter Care Teams Kiln Setter Relationship Specialty Start Date End Date Chris Stanley APRN [address] [place] [address] PCP - General Family Medicine 02/03/19 documented as of this encounter
--- OUTSIDE RECORDS SUMMARY | 2024-02-05 12:57 | XMS_ITS | Encounter Summary ---
Author Organization [facility] Address [facility] [place] [address] Care Team Providers Care Fire Department Battalion Chief Name Role Phone Ana Gillespie VAUGHN Primary Care Provider [phone] Encounter Details Date Type Department Care Team (Late st Contact Info) Description 08/14/2022 Ancillary Procedure Radiology Library at [facility] [place] [phone] Social History Tobacco Use Types Packs/Day Years [...] PM EDT Office Visit Cardiology at [address] [phone] Milagros Hernandez MD [facility] [place] [address] Scheduled Procedures Name Priority Associated Diagnoses Date/Ti [...] is for storage only. Ayo Serna MD [facility] FILM LIBRARY ORD ERABLES documented in this encounter Visit Diagnoses Not on filedocumented in this encounter Care Teams Fire Department Battalion Chief Relationship Specialty Start Date End Date Ana Gillespie APRN [address] [place] [address] PCP - General Family Medicine 02/03/19 documented as of this encounter
--- OUTSIDE RECORDS SUMMARY | 2024-02-05 12:57 | XMS_ITS | Encounter Summary ---
[place] [address] Care Team Providers Care Packing Room Supervisor Name Role Phone Ana Gillespie APRN Primary Care Provider [phone] Encounter Details Date Type Department Care Team (Late st Contact Info) Description 12/26/2021 Telephone [place] [address] Rober Tobin Social History Tobacco [...] Return calls can be handled by: Endoscopy Casing Builder [phone] documented in this encounter Plan of Treatment Upcoming Encounters Date Type Department Care Team (Late st Contact Info) Description 03/10/2024 4:00 PM EDT Office Visit Cardiology at [address] [address] Milagros Hernandez MD [facility] [place] [address] Scheduled Procedures Name Priority Associated Diagnoses Date/Ti me EGD, UPPER GI ENDOSCOPY (WRV U 2.09) Peptic stricture of esophagus documented as of this encounter Visit Diagnoses Not on filedocumented in this encounter Care Teams Packing Room Supervisor Relationship Specialty Start Date End Date Ana Gillespie APRN [address] [place] [address] PCP - General Family Medicine 02/03/19 documented as of this encounter
--- OUTSIDE RECORDS SUMMARY | 2024-02-05 12:57 | XMS_ITS | Encounter Summary ---
Author Organization [facility] Address [facility] [place] [address] Care Team Providers Care Bench Hand Name Role Phone Ana Gillespie VAUGHN Primary Care Provider [phone] Encounter Details Date Type Department Care Team (Latest Contact Info) Description 03/31/2022 8:43 AM EST - 03/31/2022 11:10 AM EST Hospital Encounter Gastroenterology at [facility] [place] [address] David Dejesus MD [facility] [place] [address] Discharge Disposition: Home Social History Tobacco Use [...] the day after the procedure, use an cjtx-xcm-dbqhvvv spray to numb your throat. Sucking on [...] occurs, please contact your Doctor. Please call [phone] before 8pm Mon-Fri with problems, questions or concerns. If you call after 8pm or on weekends, call the Hospital at [phone] and ask to speak to the Grain Elevator Man healthcare liaison and the glazing machine operator will contact that person for you. When should you call for help? Call [phone] anytime you think you may need emergency [...] any problems. Where can you learn more? [facility] View your After Visit Summary and more online at [email or web address] If you would like to provide feedback about your hospital experience, please call the Office of Patient and Family Relations at . If you have received this After Visit Summary in error, please immediately return it in person to the department, or notify the [facility] Privacy Office by calling toll free at between the hours of 8AM and 5PM to arrange for our retrieval of the documents at no cost to you. Content Version: 12.2 ?? 4990-9014 [employer]. Care instructions adapted under license by [facility]. If you have questions about a medical condition or this instruction, always ask your healthcare professional. [employer] disclaims any warranty or liability for your [...] meter kit. 1 each 0 12/14/2014 Insulin [place], Disposable, (BD INSULIN PEN NEEDLE UF MINI) 31 x 3/16 NeedleIndications:Di abetes mellitus type 2, uncontrolled 1 Device by [facility].(Non-Drug; Combo Route) route 3 times [...] 4:00 PM EDT Office Visit Cardiology at [address] [address] Milagros Hernandez MD [facility] [place] [address] Scheduled Procedures Name Priority Associated Diagnoses Date/Ti [...] 10:21 AM EST Endoscopic Us Exam, Esoph ([id number]) 03/31/2022 9:59 AM EST Schedule EGD in two years Upper Gi Endoscopy, Biopsy ([id number]) 03/31/2022 9:59 AM EST Schedule EGD in two years UPPER GI ENDOSCOPY Routine 03/31/2022 9: 56 AM EST POCT GLUCOSE Routine 03/31/2022 9:18 AM EST documented in this encounter Results * Specimen to Pathology (03/31/2022 10:36 AM EST) AP Specimen 03/31/2022 10:3 6 AM EST 03/31/2022 10:36 AM EST Narrative [facility] - 03/31/2022 10:36 AM EST Specimen requisition ordered. ??Separate Pathology report to follow David Dejesus MD PATHOLOGY/CYTOLOGY ORDERABLES [facility] [place] [address] * Specimen to Pathology (03/31/2022 10:36 AM EST) AP Specimen 03/31/2022 10:3 6 AM EST 03/31/2022 10:36 AM EST Narrative [facility] - 03/31/2022 10:36 AM EST Specimen requisition ordered. ??Separate Pathology report to follow David Dejesus MD PATHOLOGY/CYTOLOGY ORDERABLES Performing Organization Address City/[facility]/[place] [address] * Specimen to Pathology (03/31/2022 10:36 AM EST) AP Specimen 03/31/2022 10:3 6 AM EST 03/31/2022 10:36 AM EST Narrative [facility] - 03/31/2022 10:36 AM EST Specimen requisition ordered. ??Separate Pathology report to follow David Dejesus MD PATHOLOGY/CYTOLOGY ORDERABLES Performing Organization Address [facility] [place] [address] * Specimen to Pathology (03/31/2022 10:36 AM EST) AP Specimen 03/31/2022 10:3 6 AM EST 03/31/2022 10:36 AM EST Narrative [facility] - 03/31/2022 10:36 AM EST Specimen requisition ordered. ??Separate Pathology report to follow David Dejesus MD PATHOLOGY/CYTOLOGY ORDERABLES Performing Organization Address [facility] [place] [address] * Specimen to Pathology (03/31/2022 10:36 AM EST) AP Specimen 03/31/2022 10:3 6 AM EST 03/31/2022 10:36 AM EST Narrative [facility] - 03/31/2022 10:36 AM EST Specimen requisition ordered. ??Separate Pathology report to follow David Dejesus MD PATHOLOGY/CYTOLOGY ORDERABLES Performing Organization Address [facility] Co de Phone Number [facility] [place] [address] * Specimen to Pathology (03/31/2022 10:36 AM EST) AP Specimen 03/31/2022 10:3 6 AM EST 03/31/2022 10:36 AM EST Narrative [facility] - 03/31/2022 10:36 AM EST Specimen requisition ordered. ??Separate Pathology report to follow David Dejesus MD PATHOLOGY/CYTOLOGY ORDERABLES Performing Organization Address [facility] [place] [place] [address] * Specimen to Pathology (03/31/2022 10:36 AM EST) AP Specimen 03/31/2022 10:3 6 AM EST 03/31/2022 10:36 AM EST Narrative [facility] - 03/31/2022 10:36 AM EST Specimen requisition ordered. ??Separate Pathology report to follow David Dejesus MD PATHOLOGY/CYTOLOGY ORDERABLES Performing Organization Address [facility] [place] [address] * Surgical Pathology Report (03/31/2022 10:21 AM EST) Pathologist [facility] Final Diagnosis [id number] ? Location: 4; 08; A The signing pathologist has (i) [...] Verified: ??04/09/2022 9:14 ?? Pathologist Performed at: ??-[facility] Dept. of [place]ology, [place] [address] Ethylbenzene Cracking Supervisor: Vishal Gilliam MD, FCAP, ??CLIA Certificate: [id number] SPECIMEN(S) SUBMITTED A - Esophagus at 30 [...] labeled G1. ??sns 04/09/2022 9:14 AM EST [facility] GI Biopsy 03/31/2022 10:2 1 AM EST 03/31/2022 10:21 AM EST GI Biopsy 03/31/2022 10:2 1 AM EST 03/31/2022 10:21 AM EST GI Biopsy 03/31/2022 10:2 1 AM EST 03/31/2022 10:21 AM EST GI Biopsy 03/31/2022 10:2 1 AM EST 03/31/2022 10:21 AM EST GI Biopsy 03/31/2022 10:2 1 AM EST 03/31/2022 10:21 AM EST GI Biopsy 03/31/2022 10:2 1 AM EST 03/31/2022 10:21 AM EST GI Biopsy 03/31/2022 10:2 1 AM EST 03/31/2022 10:21 AM EST David Dejesus MD PATHOLOGY/CYTOLOGY ORDERABLES [facility] [place] [address] * UPPER GI ENDOSCOPY (03/31/2022 9:56 AM EST) UPPER GI ENDOSCOPY [facility] Endoscopy Procedure Date: 03/31/2022 9:56 AM ? Patient Name: Jennifer Irving ? Date of : 1960 ? Age: 61 ? Order #: [id number] ? Instrument Name: [id number] ? Procedure: ? Upper GI endoscopy Indications: ? Follow-up of Farrell's esophagus Providers: ? David Dejesus MD, Trell Key. ? Ivone, Eligio Sadler RN, Kenna ? Chelsey Blanchard MD: ?Ana Gillespie Medicines: ? Monitored Anesthesia [...] SURGICAL ORD ERABLES [employer] * POCT Glucose (03/31/2022 9:18 AM EST) Glucose, POC 180 65 - 199 mg/dL [facility] Comment: Supplemental ranges: <140 mg/dL before meals <180 mg/dL all other times of the day Blood 03/31/2022 9:18 AM EST 03/31/2022 9:18 AM EST David Dejesus MD POINT [place] [address] documented in this encounter Visit Diagnoses Not [...] Juárez CRNA)1034 (Anesthesia Volume Adjustment - Provider: uSsy Juárez CRNA) documented in this encounter Care Teams Bench Hand Relationship Specialty Start Date End Date Ana Gillespie APRN [address] [place] [address] PCP - General Family Medicine 02/03/19 documented as of this encounter
--- OUTSIDE RECORDS SUMMARY | 2024-02-05 12:57 | XMS_ITS | Encounter Summary ---
Author Organization [facility] Address [facility] [place] [address] Care Team Providers Care Mesmerist Name Role Phone Ana Gillespie VAUGHN Primary Care Provider [phone] Encounter Details Date Type Department Care Team (Late st Contact Info) Description 08/08/2022 12:05 AM EDT Ancillary Procedure Radiology Library at [facility] [place] [address] Social History Tobacco Use Types Packs/Day Years [...] PM EDT Office Visit Cardiology at [address] [address] Milagros Hernandez MD [facility] [place] [address] Scheduled Procedures Name Priority Associated Diagnoses Date/Ti [...] is for storage only. Ayo Serna MD [facility] FILM LIBRARY ORD ERABLES documented in this encounter Visit Diagnoses Not on filedocumented in this encounter Care Teams Mesmerist Relationship Specialty Start Date End Date Ana Gillespie APRN [address] [place] [address] PCP - General Family Medicine 02/03/19 documented as of this encounter
--- OUTSIDE RECORDS SUMMARY | 2024-02-05 12:57 | XMS_ITS | Encounter Summary ---
Author Organization [facility] Address [facility] [place] [address] Care Team Providers Care Blood Tester Fowl Name Role Phone Ana Gillespie VAUGHN Primary Care Provider [phone] Encounter Details Date Type Department Care Team (Late st Contact Info) Description 03/31/2022 10:15 AM EST - 03/31/2022 10:45 AM EST Surgery Gastroenterology at [facility] [place] [address] David Dejesus MD [facility] [place] [address] EGD WITH BIOPSY (WRVU 2.39) Social History [...] the day after the procedure, use an xzyn-puh-ddegouj spray to numb your throat. Sucking on [...] occurs, please contact your Doctor. Please call [phone] before 8pm Mon-Fri with problems, questions or concerns. If you call after 8pm or on weekends, call the Hospital at [phone] and ask to speak to the Representative Personal Service sewing machine operator floorperson and the icicle machine operator will contact that person for you. When should you call for help? Call 212 anytime you think you may need emergency [...] any problems. Where can you learn more? [facility] View your After Visit Summary and more online at [email or web address] If you would like to provide feedback about your hospital experience, please call the Office of Patient and Family Relations at . If you have received this After Visit Summary in error, please immediately return it in person to the department, or notify the [facility] Privacy Office by calling toll free at between the hours of 8AM and 5PM to arrange for our retrieval of the documents at no cost to you. Content Version: 12.2 ?? [id number] [employer]. Care instructions adapted under license by [facility]. If you have questions about a medical condition or this instruction, always ask your healthcare professional. [employer] disclaims any warranty or liability for your [...] meter kit. 1 each 0 12/14/2014 Insulin [place], Disposable, (BD INSULIN PEN NEEDLE UF MINI) [...] PM EDT Office Visit Cardiology at [address] [address] Milagros Hernandez MD [facility] [place] [address] Scheduled Procedures Name Priority Associated Diagnoses Date/Ti [...] 10:21 AM EST Endoscopic Us Exam, Esoph ([id number]) 03/31/2022 9:59 AM EST Schedule EGD in two years Upper Gi Endoscopy, Biopsy ([id number]) 03/31/2022 9:59 AM EST Schedule EGD in two years UPPER GI ENDOSCOPY Routine 03/31/2022 9: 56 AM EST POCT GLUCOSE Routine 03/31/2022 9:18 AM EST documented in this encounter Results * Specimen to Pathology (03/31/2022 10:36 AM EST) AP Specimen 03/31/2022 10:3 6 AM EST 03/31/2022 10:36 AM EST Narrative [facility] - 03/31/2022 10:36 AM EST Specimen requisition ordered. ??Separate Pathology report to follow David Dejesus MD PATHOLOGY/CYTOLOGY ORDERABLES [facility] [place] [address] * Specimen to Pathology (03/31/2022 10:36 AM EST) AP Specimen 03/31/2022 10:3 6 AM EST 03/31/2022 10:36 AM EST Narrative [facility] - 03/31/2022 10:36 AM EST Specimen requisition ordered. ??Separate Pathology report to follow David Dejesus MD PATHOLOGY/CYTOLOGY ORDERABLES Performing Organization Address City/[facility] Co de Phone Number [facility] [place] [address] * Specimen to Pathology (03/31/2022 10:36 AM EST) AP Specimen 03/31/2022 10:3 6 AM EST 03/31/2022 10:36 AM EST Narrative [facility] - 03/31/2022 10:36 AM EST Specimen requisition ordered. ??Separate Pathology report to follow David Dejesus MD PATHOLOGY/CYTOLOGY ORDERABLES Performing Organization Address [facility] Co de Phone Number [facility] [place] [address] * Specimen to Pathology (03/31/2022 10:36 AM EST) AP Specimen 03/31/2022 10:3 6 AM EST 03/31/2022 10:36 AM EST Narrative [facility] - 03/31/2022 10:36 AM EST Specimen requisition ordered. ??Separate Pathology report to follow David Dejesus MD PATHOLOGY/CYTOLOGY ORDERABLES Performing Organization Address [facility] Co de Phone Number [facility] [place] [address] * Specimen to Pathology (03/31/2022 10:36 AM EST) AP Specimen 03/31/2022 10:3 6 AM EST 03/31/2022 10:36 AM EST Narrative [facility] - 03/31/2022 10:36 AM EST Specimen requisition ordered. ??Separate Pathology report to follow David Dejesus MD PATHOLOGY/CYTOLOGY ORDERABLES Performing Organization Address City/[facility] Co de Phone Number [facility] [place] [address] * Specimen to Pathology (03/31/2022 10:36 AM EST) AP Specimen 03/31/2022 10:3 6 AM EST 03/31/2022 10:36 AM EST Narrative [facility] - 03/31/2022 10:36 AM EST Specimen requisition ordered. ??Separate Pathology report to follow David Dejesus MD PATHOLOGY/CYTOLOGY ORDERABLES Performing Organization Address [facility] [place] [address] * Specimen to Pathology (03/31/2022 10:36 AM EST) AP Specimen 03/31/2022 10:3 6 AM EST 03/31/2022 10:36 AM EST Narrative [facility] - 03/31/2022 10:36 AM EST Specimen requisition ordered. ??Separate Pathology report to follow David Dejesus MD PATHOLOGY/CYTOLOGY ORDERABLES Performing Organization Address [facility] [place] [address] * Surgical Pathology Report (03/31/2022 10:21 AM EST) Pathologist [facility] Final Diagnosis [id number] ? Location: 4; 08; A The signing [...] Verified: ??04/09/2022 9:14 ?? Pathologist Performed at: ??-[facility] Dept. of [place]ology, [place] [address] Blockers Skiver: Vishal Gilliam MD, FCAP, ??CLIA Certificate: [id number] SPECIMEN(S) SUBMITTED A - Esophagus at 30 [...] labeled G1. ??sns 04/09/2022 9:14 AM EST [facility] GI Biopsy 03/31/2022 [...] AM EST David Dejesus MD PATHOLOGY/CYTOLOGY ORDERABLES [facility] [place] [address] * UPPER GI ENDOSCOPY (03/31/2022 9:56 AM EST) UPPER GI ENDOSCOPY [facility] Endoscopy Procedure Date: 03/31/2022 9:56 AM ? Patient Name: Jennifer Irving ? Date of : 1960 ? Age: 61 ? Order #: [id number] ? Instrument Name: [id number] ? Procedure: ? Upper GI endoscopy Indications: ? Follow-up of Farrell's esophagus Providers: ? David Dejesus MD, Trell Key. ? Ivone, Eligio Sadler RN, Kenna ? Chelsey Referring MD: ?Ana Keith: ? Monitored Anesthesia [...] Glucose, POC 180 65 - 199 mg/dL [facility] Comment: Supplemental ranges: <140 mg/dL before meals <180 mg/dL all other times of the day Blood 03/31/2022 9:18 AM EST 03/31/2022 9:18 AM EST David Dejesus MD POINT OF CARE TEST ORDERABLES [facility] [place] [address] documented in this encounter Visit Diagnoses Not [...] CRNA) documented in this encounter Care Teams Blood Tester Fowl Relationship Specialty Start Date End Date Ana Gillespie APRN [address] [place] [address] PCP - General Family Medicine 02/03/19 documented as of this encounter
--- OUTSIDE RECORDS SUMMARY | 2024-02-05 12:57 | XMS_ITS | Encounter Summary ---
Author Organization [facility] Address [facility] [place] [address] Care Team Providers Care Acquisition Specialist Name Role Phone Ana Gillespie APRN Primary Care Provider [phone] Encounter Details Date Type Department Care Team (Late st Contact Info) Description 01/27/2022 11:59 PM EDT Anesthesia [place] [phone] Violet Miguel MD [facility] [place] [address] Anesthesia Record Procedure Summary Procedure Name Responsible [...] BX performed by David Dejesus MD at [facility] ENDOSCOPY ??? PRO COLONOSCOPY, DIAGNOSTIC N/A 03/01/2020 COLONOSCOPY, DIAGNOSTIC performed by David Dejesus MD at [facility] ENDOSCOPY ??? PRO UPPER GI ENDOSCOPY, BIOPSY N/A 04/03/2014 UPPER GASTROINTESTINAL ENDOSCOPY,WITH BIOPSY SINGLE OR MULTIPLE performed by David Dejesus MDat [facility] ENDOSCOPY ??? PRO UPPER GI ENDOSCOPY, BIOPSY N/A 03/20/2016 EGD WITH BIOPSY performed by David Dejesus MD at [facility] ENDOSCOPY ??? PRO UPPER GI ENDOSCOPY, BIOPSY N/A 11/22/2018 EGD WITH BIOPSY (WRVU 2.49) performed by David Dejesus MD at [facility] ENDOSCOPY ??? PRO UPPER GI ENDOSCOPY, BIOPSY N/A 03/01/2020 UPPER GASTROINTESTINAL ENDOSCOPY,WITH BIOPSY SINGLE OR MULTIPLE (WRVU 2.49) performed by David Dejesus MD at [facility] ENDOSCOPY ??? PRO UPPER GI ENDOSCOPY, BIOPSY N/A 09/23/2021 EGD WITH BIOPSY (WRVU 2.49) performed by David Dejesus MD at [facility] ENDOSCOPY ??? PRO UPPER GI ENDOSCOPY, DIAGNOSTIC N/A 04/03/2014 EGD, UPPER GI ENDOSCOPY performed by David Dejesus MD at [facility] ENDOSCOPY ??? PRO UPPER GI ENDOSCOPY, DIAGNOSTIC N/A 03/01/2020 EGD, UPPER GI ENDOSCOPY performed by David Dejesus MD at [facility] ENDOSCOPY Social History Tobacco Use [...] issue Plan MAC Violet Miguel MD 01/26/2022 Customer Relations Assistant Pager #[phone] Informed Consent: Anesthesia Screening documented in this encounter Plan of Treatment Upcoming Encounters Date Type Department Care Team (Late st Contact Info) Description 03/10/2024 4:00 PM EDT Office Visit Cardiology at [address] [address] Milagros Hernandez MD [facility] [place] [address] Scheduled Procedures Name Priority Associated Diagnoses Date/Ti me EGD, UPPER GI ENDOSCOPY (WRV U 2.09) Peptic stricture of esophagus documented as of this encounter Visit Diagnoses Not on filedocumented in this encounter Care Teams Acquisition Specialist Relationship Specialty Start Date End Date Ana Gillespie APRN [address] [place] [address] PCP - General Family Medicine 02/03/19 documented as of this encounter
--- OUTSIDE RECORDS SUMMARY | 2024-02-05 12:57 | XMS_ITS | Encounter Summary ---
Author Organization [facility] [place] [address] Care Team Providers Care Press Operator Name Role Phone Ana Gillespie APRN Primary Care Provider [phone] Encounter Details Date Type Department Care Team [...] PM EDT Office Visit Cardiology at [address] [address] Milagros Hernandez MD [facility] [place] [address] Scheduled Procedures Name Priority Associated Diagnoses Date/Ti me EGD, UPPER GI ENDOSCOPY (WRV U 2.09) Peptic stricture of esophagus documented as of this encounter Visit Diagnoses Not on filedocumented in this encounter Care Teams Press Operator Relationship Specialty Start Date End Date Ana Gillespie APRN [address] [place] [address] PCP - General Family Medicine 02/03/19 documented as of this encounter
--- OUTSIDE RECORDS SUMMARY | 2024-02-05 12:57 | XMS_ITS | Encounter Summary ---
Author Organization [facility] [place] [address] Care Team Providers Care Dog Track Kennel Manager Name Role Phone Ana Gillespie APRN Primary Care Provider [phone] Encounter Details Date Type Department Care Team (Late st Contact Info) Description 05/25/2022 Telephone Gastroenterology at [facility] [place] [address] Jaymie Bass Social History Tobacco Use Types [...] - 05/25/2022 12:22 PM EST Jennifer Irving [id number] EGD with Anesthesia within [address] Dejesus 05/25/22 Diagnosis/Indication: dysphagia Please review patient chart [...] your procedure. Who will likely be your trailer driver for the procedure? yes *Please Verify [...] PM EDT Office Visit Cardiology at [address] [address] Milagros Hernandez MD [facility] [place] [address] Scheduled Procedures Name Priority Associated Diagnoses Date/Ti me EGD, UPPER GI ENDOSCOPY (WRV U 2.09) Peptic stricture of esophagus documented as of this encounter Visit Diagnoses Not on filedocumented in this encounter Care Teams Dog Track Kennel Manager Relationship Specialty Start Date End Date Ana Gillespie APRN [address] [place] [address] PCP - General Family Medicine 02/03/19 documented as of this encounter
--- OUTSIDE RECORDS SUMMARY | 2024-02-05 12:57 | XMS_ITS | Encounter Summary ---
Author Organization Count Includes [facility] Address [facility] [place] [address] Care Team Providers Care Audioprosthologist Name Role Phone Ana Gillespie VAUGHN Primary Care Provider [phone] Encounter Details Date Type Department Care Team (Late st Contact Info) Description 08/14/2022 [place] [address] Social History Tobacco Use Types Packs/Day Years [...] PM EDT Office Visit Cardiology at [address] [address] Milagros Hernandze MD [facility] [place] [address] Scheduled Procedures Name Priority Associated Diagnoses Date/Ti [...] documented as of this encounter Care Teams Audioprosthologist Relationship Specialty Start Date End Date Ana Gillespie APRN [address] [place] [address] PCP - General Family Medicine 02/03/19 documented as of this encounter
--- OUTSIDE RECORDS SUMMARY | 2024-02-05 12:57 | XMS_ITS | Encounter Summary ---
[place] [address] Care Team Providers Care Machine Setter Name Role Phone Ana Gillespie VAUGHN Primary Care Provider [phone] Reason for Visit * Auth/Cert (Routine) Specialty Diagnoses / Procedures Referred By Esperanza t Referred To Contact Diagnoses Shock CARDIOGENIC PULMONARY EDEMA Procedures ER CLAUDIOI Carlos Terry MD [facility] [place] [address] [facility] Referral ID Status Reason Start Date Expiration Date Visits Re quested Visits Authorized [id number] 1 1 Encounter Details Date Type Department Care Team (Late st Contact Info) Description 09/09/2022 11:32 PM EDT Anesthesia Event [place] [address] Chon Moctezuma MD [facility] [place] [address] Darin Chaves MD [facility] [place] [address] Anesthesia Record Procedure Summary Procedure Name Responsible [...] side of arm), right; pressure injectable catheter ([id number]); 5 Fr; 0 cm; 33 cm; 33 [...] Procedure Summary Date: 09/09/22 Room / Location: [place] [address] [facility] MAIN OR Anesthesia Start: 2331 Anesthesia Stop: Procedure: EGD, UPPER GI ENDOSCOPY (WRVU 2.09) Diagnosis: (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 PRO COLONOSCOPY, DIAGNOSTIC N/A 03/01/2020 COLONOSCOPY, DIAGNOSTIC performed by David Dejesus MD at [facility] ENDOSCOPY ??? PRO ENDOSCOPIC US EXAM, ESOPH N/A 03/31/2022 UPPER EUS- ENDOSCOPIC ULTRASOUND performed by David Dejesus MD at [facility] ENDOSCOPY ??? PRO UPPER GI ENDOSCOPY, BIOPSY N/A 04/03/2014 UPPER GASTROINTESTINAL ENDOSCOPY,WITH BIOPSY SINGLE OR MULTIPLE performed by David Dejesus MDat [facility] ENDOSCOPY ??? PRO UPPER GI ENDOSCOPY, BIOPSY N/A 03/20/2016 EGD WITH BIOPSY performed by David Dejesus MD at [facility] ENDOSCOPY ??? PRO UPPER GI ENDOSCOPY, BIOPSY N/A 11/22/2018 EGD WITH BIOPSY (WRVU 2.49) performed by David Dejesus MD at [facility] ENDOSCOPY ??? PRO UPPER GI ENDOSCOPY, BIOPSY N/A 03/01/2020 UPPER GASTROINTESTINAL ENDOSCOPY,WITH BIOPSY SINGLE OR MULTIPLE (WRVU 2.49) performed by David Dejesus MD at [facility] ENDOSCOPY ??? PRO UPPER GI ENDOSCOPY, BIOPSY N/A 09/23/2021 EGD WITH BIOPSY (WRVU 2.49) performed by David Dejesus MD at [facility] ENDOSCOPY ??? PRO UPPER GI ENDOSCOPY, BIOPSY N/A 03/31/2022 EGD WITH BIOPSY (WRVU 2.49) performed by David Dejesus MD at [facility] ENDOSCOPY ??? PRO UPPER GI ENDOSCOPY, BIOPSY N/A 07/03/2022 EGD WITH BIOPSY (WRVU 2.49) performed by David Dejesus MD at [facility] ENDOSCOPY ??? PRO UPPER GI ENDOSCOPY, DIAGNOSTIC N/A 04/03/2014 EGD, UPPER GI ENDOSCOPY performed by David Dejesus MD at [facility] ENDOSCOPY ??? PRO UPPER GI ENDOSCOPY, DIAGNOSTIC N/A 03/01/2020 EGD, UPPER GI ENDOSCOPY performed by David Dejesus MD at [facility] ENDOSCOPY Social History Tobacco Use ??? [...] - 09/10/2022 7:43 AM EDT Addendum created 09/10/22 0743 by Darin Chaves MD Intraprocedure Meds edited documented in this encounter Plan of Treatment Upcoming Encounters Date Type Department Care Team (Late st Contact Info) Description 03/10/2024 4:00 PM EDT Office Visit Cardiology at [address] [address] Milagros Hernandez MD [facility] [place] [address] Scheduled Procedures Name Priority Associated Diagnoses Date/Ti [...] EDT documented in this encounter Care Teams Machine Setter Relationship Specialty Start Date End Date Ana Gillespie APRN [address] [place] [address] PCP - General Family Medicine 02/03/19 documented as of this encounter
--- OUTSIDE RECORDS SUMMARY | 2024-02-05 12:57 | XMS_ITS | Encounter Summary ---
Author Organization [facility] Address [facility] [place] [address] Care Team Providers Care Clearance Cutter Name Role Phone Jose Miguel Ana TRY ON BASTER Primary Care Provider [phone] Encounter Details Date Type Department Care Team (Late st Contact Info) Description 08/10/2022 Ancillary Procedure Radiology Library [place] [facility] [address] Ana Gillespie APRN [address] [place] [address] Social History Tobacco Use Types Packs/Day Years [...] PM EDT Office Visit Cardiology at [address] [place] [address] Milagros Hernandez MD [facility] [place] [address] Scheduled Procedures Name Priority Associated Diagnoses Date/Ti [...] FILM LIBRARY ORD ERABLES Performing Organization Address City/State/[facility] Co de Phone Number [place], [place] documented in this encounter Visit Diagnoses Not on filedocumented in this encounter Care Teams Clearance Cutter Relationship Specialty Start Date End Date Ana Gillespie APRN [address] [place] [address] PCP - General Family Medicine 02/03/19 documented as of this encounter
--- OUTSIDE RECORDS SUMMARY | 2024-02-05 12:57 | XMS_ITS | Encounter Summary ---
Author Organization [facility] Address [facility] [place] [address] Care Team Providers Care Campground Caretaker Name Role Phone Ana Gillespie APRN Primary Care Provider [phone] Encounter Details Date Type Department Care Team (Late st Contact Info) Description 06/05/2022 Telephone [place] [phone] Crissy Causey Social History Tobacco Use Types [...] PM EDT Office Visit Cardiology at [address] [phone] [facility] [place] [address] Scheduled Procedures Name Priority Associated Diagnoses Date/Ti me EGD, UPPER GI ENDOSCOPY (WRV U 2.09) Peptic stricture of esophagus documented as of this encounter Visit Diagnoses Not on filedocumented in this encounter Care Teams Campground Caretaker Relationship Specialty Start Date End Date Ana Gillespie APRN [address] [place] [address] PCP - General Family Medicine 02/03/19 documented as of this encounter
--- OUTSIDE RECORDS SUMMARY | 2024-02-05 12:57 | XMS_ITS | Encounter Summary ---
Author Organization [facility] Address [facility] [place] [address] Care Team Providers Care Cyberathlete Name Role Phone Ana Gillespie VAUGHN Primary Care Provider [phone] Encounter Details Date Type Department Care Team (Late st Contact Info) Description 08/08/2022 12:15 AM EDT Ancillary Procedure Radiology Library at [facility] [place] [address] Social History Tobacco Use Types Packs/Day Years [...] 4:00 PM EDT Office Visit Cardiology at [address] [address] Milagros Hernandez MD [facility] [place] [place] [address] Scheduled Procedures Name Priority Associated Diagnoses Date/Ti [...] is for storage only. Ayo Serna MD [facility] FILM LIBRARY ORD ERABLES documented in this encounter Visit Diagnoses Not on filedocumented in this encounter Care Teams Cyberathlete Relationship Specialty Start Date End Date Ana Gillespie APRN [address] [place] [address] PCP - General Family Medicine 02/03/19 documented as of this encounter
--- OUTSIDE RECORDS SUMMARY | 2024-02-05 12:57 | XMS_ITS | Encounter Summary ---
Author Organization [facility] Address [facility] [place] [address] Care Team Providers Care Personnel Worker Name Role Phone Ana Gillespie VAUGHN Primary Care Provider [phone] Encounter Details Date Type Department Care Team (Latest Contact Info) Description 07/03/2022 7:08 AM EST - 07/03/2022 10:05 AM EST Hospital Encounter Gastroenterology at [facility] [place] [address] David Dejesus MD [facility] [place] [address] Discharge Disposition: Home Social History Tobacco Use [...] Care Everywhere. * EGD (Upper Endoscopy): Post-op (Tristanian) documented in this encounter Medications at Time [...] meter kit. 1 each 0 12/14/2014 Insulin [place], Disposable, (BD INSULIN PEN NEEDLE UF MINI) 31 x 3/16 NeedleIndications:Di abetes mellitus type 2, uncontrolled 1 Device by [facility]Non-Drug; Combo Route) route 3 times daily as [...] for dosing. 15 mL 11 ??? Insulin [place], Disposable, (BD INSULIN PEN NEEDLE UF MINI) 31 x 3/16 Needle 1 Device by [facility]Non-Drug; Combo Route) route 3 times daily as [...] 4:00 PM EDT Office Visit Cardiology at [address] [address] Milagros Hernandez MD [facility] [place] [address] Scheduled Procedures Name Priority Associated Diagnoses Date/Ti wa EGD, UPPER GI ENDOSCOPY (WRV U 2.09) Peptic stricture of esophagus documented as of this encounter Procedures Procedure Name Priority Date/Time Associated Diagnosis Comments SURGICAL PATHOLOGY REPORT Routine 07/03/2022 9:02 AM EST SPECIMEN TO PATHOLOGY Routine 07/03/2022 9:02 AM EST SPECIMEN TO PATHOLOGY Routine 07/03/2022 9:02 AM EST Upper Gi Endoscopy, Biopsy ([id number]) 07/03/2022 8:39 AM EST Farrell's esophagus without dysplasia POCT GLUCOSE Routine 07/03/2022 7:37 AM EST UPPER GI ENDOSCOPY Routine 07/03/2022 7: 26 AM EST documented in this encounter Results * Surgical Pathology Report (07/03/2022 9:02 AM EST) Final Diagnosis [id number] ? Location: 4T; EA11; A The signing pathologist has (i) examined [...] Note). Note: Immunostains for p53, CD31 and [id number] were evaluated for final diagnosis. Electronically signed by: ?Chinmay Nguyen MD Verified: ??07/08/2022 16:29 ??Pathologist Performed at: ??-[facility] Dept. of Pathology, [place] [address] Corrugated Sheet Material Sheeter: Vishal Gilliam MD, FCAP, ??CLIA Certificate: [id number] ADDITIONAL STUDIES Immunohistochemistry Studies: Formalin-fixed, paraffin-embedded tissue [...] note ? CD31 ? see note ? [id number] ? see note SPECIMEN(S) SUBMITTED A - [...] SPECIMEN PROCESSING ??pps 07/08/2022 4:29 PM EST [facility] GI Biopsy 07/03/2022 9:02 AM EST 07/03/2022 9:02 AM EST GI Biopsy 07/03/2022 9:02 AM EST 07/03/2022 9:02 AM EST David Dejesus MD PATHOLOGY/CYTOLOGY ORDERABLES Performing Organization Address [facility]/State/[facility] Co de Phone Number [facility] [place] [address] [facility] [place] [place] [address] * Specimen to Pathology (07/03/2022 9:02 AM EST) AP Specimen 07/03/2022 9:02 AM EST 07/03/2022 9:02 AM EST Narrative [facility] - 07/03/2022 9:02 AM EST Specimen requisition ordered. ??Separate Pathology report to follow David Dejesus MD PATHOLOGY/CYTOLOGY ORDERABLES Performing Organization Address City/[facility]/ZIP Co de Phone Number [facility] [place] [address] * Specimen to Pathology (07/03/2022 9:02 AM EST) AP Specimen 07/03/2022 9:02 AM EST 07/03/2022 9:02 AM EST Narrative [facility] - 07/03/2022 9:02 AM EST Specimen requisition ordered. ??Separate Pathology report to follow David Dejesus MD PATHOLOGY/CYTOLOGY ORDERABLES Performing Organization Address City/[facility]/ZIP Co de Phone Number [facility] [place] [address] * POCT Glucose (07/03/2022 7:37 AM EST) Glucose, POC 139 65 - 199 mg/dL [facility] Comment: Supplemental ranges: <140 mg/dL before meals <180 mg/dL all other times of the day Blood 07/03/2022 7:37 AM EST 07/03/2022 7:37 AM EST David Dejesus MD POINT OF CARE TEST ORDERABLES Performing Organization Address [facility] [place] [address] * UPPER GI ENDOSCOPY (07/03/2022 7:26 AM EST) UPPER GI ENDOSCOPY [facility] Endoscopy Procedure Date: 07/03/2022 7:26 AM ? Patient Name: Jennifer Irving ? Date of : 1960 ? Age: 62 ? Order #: [id number] ? Instrument Name: [id number] ? Procedure: ? Upper GI endoscopy Indications: ? Dysphagia, Follow-up of Farrell's ? esophagus Providers: ? David Dejesus MD, Lucia Arroyo ? Tapan Agustin MD: ?Ana Keith: ? Monitored Anesthesia Care [...] PROVATION 07/03/2022 7:26 AM EST Ana Gillespie CIRCULAR SAW FILER GENERAL SURGICAL ORD ERABLES PROVATION documented in [...] CRNA) documented in this encounter Care Teams Personnel Worker Relationship Specialty Start Date End Date Ana Gillespie APRN [address] [place] [address] PCP - General Family Medicine 02/03/19 documented as of this encounter
--- OUTSIDE RECORDS SUMMARY | 2024-02-05 12:57 | XMS_ITS | Encounter Summary ---
Author Organization [facility] Address [facility] [place] [address] Care Team Providers Care Enrober Name Role Phone Jose Miguel Ana FIRE POT OPERATOR Primary Care Provider [phone] Encounter Details Date Type Department Care Team (Late st Contact Info) Description 08/08/2022 Ancillary Procedure Radiology Library at [facility] [place] [address] Ana Gillespie APRN [address] [place] [address] Social History Tobacco Use Types [...] 4:00 PM EDT Office Visit Cardiology at [address] [place] [address] Milagros Hernandez MD [facility] [place] [address] Scheduled Procedures Name Priority Associated Diagnoses Date/Ti me EGD, UPPER GI ENDOSCOPY (WRV U 2.09) Peptic stricture of esophagus documented as of this encounter Procedures Procedure Name Priority Date/Time Associated Diagnosis Comments FILM LIBRARY STORAGE ONLY CT LOWER EXTREMITY Routine 08/08/2022 12:00 AM EDT documented in this encounter Results * Film Library- Storage Only CT Lower Extremity (08/08/2022 12:00 AM EDT) Narrative QUIRINO - 08/14/2022 6:04 PM EDT This exam is auto-finalizing. It's purpose is for storage only. Ana Gillespie APRN IMG FILM LIBRARY ORD ERABLES Performing Organization Address City/State/[facility] Co de Phone Number [place], [place] documented in this encounter Visit Diagnoses Not on filedocumented in this encounter Care Teams Enrober Relationship Specialty Start Date End Date Ana Gillespie APRN [address] [place] [address] PCP - General Family Medicine 02/03/19 documented as of this encounter
--- OUTSIDE RECORDS SUMMARY | 2024-02-05 12:57 | XMS_ITS | Encounter Summary ---
Author Organization [facility] Address [facility] [place] [address] Care Team Providers Care Loom Control Chain Builder Name Role Phone Ana Gillespie APRN Primary Care Provider [phone] Encounter Details Date Type Department Care Team (Latest Contact Info) Description 08/14/2022 9:30 PM EDT - 08/14/2022 11:10 PM EDT Hospital Encounter [place] [address] Carlos Terry MD [facility] [place] [address] Discharge Disposition: Home Social History Tobacco Use [...] meter kit. 1 each 0 12/14/2014 Insulin [place], Disposable, (BD INSULIN PEN NEEDLE UF MINI) [...] 4:00 PM EDT Office Visit Cardiology at [address] [address] Milagros Hernandez MD [facility] [place] [address] Scheduled Procedures Name Priority Associated Diagnoses Date/Ti me EGD, UPPER GI ENDOSCOPY (WRV U 2.09) Peptic stricture of esophagus documented as of this encounter Visit Diagnoses Not on filedocumented in this encounter Care Teams Loom Control Chain Builder Relationship Specialty Start Date End Date Ana Gillespie APRN [address] [place] [address] PCP - General Family Medicine 02/03/19 documented as of this encounter
--- OUTSIDE RECORDS SUMMARY | 2024-02-05 12:57 | XMS_ITS | Encounter Summary ---
Author Organization [facility] Address [facility] [place] [address] Care Team Providers Care Budget Counselor Name Role Phone Ana Gillespie VAUGHN Primary Care Provider [phone] Reason for Visit * Consultation (Routine) - Closed Specialty Diagnoses / Procedures Referred By Esperanza rodríguez Referred To Contact Neurology Diagnoses Primary parkinsonism David Dejesus MD [facility] [place] [address] [facility] [address] [place] [address] Referral ID Status Reason Start Date Expiration Date V isits Requested Visits Authorized [id number] Closed Consult, Test & Treat 09/23/2021 09/23/2022 1 1 Encounter Details Date Type Department Care Team (Late st Contact Info) Description 02/12/2022 11:00 AM EDT [place] [address] Alfonso Rose MD [facility] [place] [address] Neuroleptic-induced parkinsonism Social History Tobacco [...] Jennifer Irving Provider: Alfonso Rose MD PhD ([id number]) Vis: February 12, 2022 Requesting Physician: David [...] BX performed by David Dejesus MD at [facility] ENDOSCOPY ??? PRO COLONOSCOPY, DIAGNOSTIC N/A 03/01/2020 COLONOSCOPY, DIAGNOSTIC performed by David Dejesus MD at [facility] ENDOSCOPY ??? PRO UPPER GI ENDOSCOPY, BIOPSY N/A 04/03/2014 UPPER GASTROINTESTINAL ENDOSCOPY,WITH BIOPSY SINGLE OR MULTIPLE performed by David Dejesus MDat [facility] ENDOSCOPY ??? PRO UPPER GI ENDOSCOPY, BIOPSY N/A 03/20/2016 EGD WITH BIOPSY performed by David Dejesus MD at [facility] ENDOSCOPY ??? PRO UPPER GI ENDOSCOPY, BIOPSY N/A 11/22/2018 EGD WITH BIOPSY (WRVU 2.49) performed by David Dejesus MD at [facility] ENDOSCOPY ??? PRO UPPER GI ENDOSCOPY, BIOPSY N/A 03/01/2020 UPPER GASTROINTESTINAL ENDOSCOPY,WITH BIOPSY SINGLE OR MULTIPLE (WRVU 2.49) performed by David Dejesus MD at [facility] ENDOSCOPY ??? PRO UPPER GI ENDOSCOPY, BIOPSY N/A 09/23/2021 EGD WITH BIOPSY (WRVU 2.49) performed by David Dejesus MD at [facility] ENDOSCOPY ??? PRO UPPER GI ENDOSCOPY, DIAGNOSTIC N/A 04/03/2014 EGD, UPPER GI ENDOSCOPY performed by David Dejesus MD at [facility] ENDOSCOPY ??? PRO UPPER GI ENDOSCOPY, DIAGNOSTIC N/A 03/01/2020 EGD, UPPER GI ENDOSCOPY performed by David Dejesus MD at [facility] ENDOSCOPY Social History Social History Socioeconomic History [...] for dosing. 15 mL 11 ??? Insulin [place], Disposable, (BD INSULIN PEN NEEDLE UF MINI) 31 x 3/16 Needle 1 Device by [facility].(Non-Drug; Combo Route) route 3 times daily as [...] Coordination: ?? Finger to nose: intact ?? Flvs-mnlt-vyed: intact ?? Tandem: intact ?? Gait: ?? [...] in this encounter. Alfonso Rose MD PhD [facility] Neurology documented in this encounter Miscellaneous Notes [...] 4:00 PM EDT Office Visit Cardiology at [address] [address] Milagros Hernandez MD [facility] [place] [address] Scheduled Procedures Name Priority Associated Diagnoses Date/Ti me EGD, UPPER GI ENDOSCOPY (WRV U 2.09) Peptic stricture of esophagus Scheduled Referrals Name Type Priority Associated Diagnoses Orde r Schedule Referral to Neurology Outpatient Referral Routine Primary Parkinsonism Ordered: 09/23/2021 documented as of this encounter Visit Diagnoses Diagnosis Neuroleptic-induced parkinsonism Secondary Parkinsonism documented in this encounter Care Teams Budget Counselor Relationship Specialty Start Date End Date Ana Gillespie APRN [address] [place] [address] PCP - General Family Medicine 02/03/19 documented as of this encounter
--- OUTSIDE RECORDS SUMMARY | 2024-02-05 12:57 | XMS_ITS | Encounter Summary ---
Author Organization [facility] [place] [address] Care Team Providers Care Chain Offbearer Name Role Phone Ana Gillespie VAUGHN Primary Care Provider [phone] Encounter Details Date Type Department Care Team (Late st Contact Info) Description 08/15/2022 [place] [phone] Unknown None Social History Tobacco Use Types [...] PM EDT Office Visit Cardiology at [address] [address] Milagros Hernandez MD [facility] [place] [address] Scheduled Procedures Name Priority Associated Diagnoses Date/Ti [...] AM EDT ? Echocardiogram Report Name: JENNIFER LEONG ?Study Date: 08/15/2022 02:41 AM : 1960 [...] Terry MD - 08/15/2022 Echocardiogram Report Name: SALO JENNIFER [place] Study Date: 08/15/2022 02:41AM : 1960 Age: [...] on filedocumented in this encounter Care Teams Chain Offbearer Relationship Specialty Start Date End Date Ana Gillespie APRN [address] [place] [address] PCP - General Family Medicine 02/03/19 documented as of this encounter
--- OUTSIDE RECORDS SUMMARY | 2024-02-05 12:57 | XMS_ITS | Encounter Summary ---
Author Organization [facility] Address [facility] [place] [address] Care Team Providers Care Paid Intern Name Role Phone Ana Gillespie VAUGHN Primary Care Provider [phone] Encounter Details Date Type Department Care Team (Late st Contact Info) Description 07/03/2022 8:30 AM EST - 07/03/2022 9:00 AM EST Surgery Gastroenterology at [facility] [place], [facility] [place] [address] David Dejesus MD [facility] [place] [address] EGD WITH BIOPSY (WRVU 2.39) Social History [...] Care Everywhere. * EGD (Upper Endoscopy): Post-op (Romansh) documented in this encounter Medications at Time [...] meter kit. 1 each 0 12/14/2014 Insulin [place], Disposable, (BD INSULIN PEN NEEDLE UF MINI) 31 x 07/23 NeedleIndications:Di abetes mellitus type 2, uncontrolled 1 Device by [facility].(Non-Drug; Combo Route) route 3 times daily as [...] for dosing. 15 mL 11 ??? Insulin [place], Disposable, (BD INSULIN PEN NEEDLE UF MINI) 31 x 3/16 Needle 1 Device by [facility].(Non-Drug; Combo Route) route 3 times daily as [...] PM EDT Office Visit Cardiology at [address] [address] Milagros Hernandez MD [facility] [place] [address] Scheduled Procedures Name Priority Associated Diagnoses Date/Ti me EGD, UPPER GI ENDOSCOPY (WRV U 2.09) Peptic stricture of esophagus documented as of this encounter Procedures Procedure Name Priority Date/Time Associated Diagnosis Comments SURGICAL PATHOLOGY REPORT Routine 07/03/2022 9:02 AM EST SPECIMEN TO PATHOLOGY Routine 07/03/2022 9:02 AM EST SPECIMEN TO PATHOLOGY Routine 07/03/2022 9:02 AM EST Upper Gi Endoscopy, Biopsy ([id number]) 07/03/2022 8:39 AM EST Farrell's esophagus without dysplasia POCT GLUCOSE Routine 07/03/2022 7:37 AM EST UPPER GI ENDOSCOPY Routine 07/03/2022 7: 26 AM EST documented in this encounter Results * Surgical Pathology Report (07/03/2022 9:02 AM EST) Final Diagnosis [id number] ? Location: 4T; EA11; A The signing [...] Note). Note: Immunostains for p53, CD31 and [id number] were evaluated for final diagnosis. Electronically signed by: ?Chinmay Nguyen MD Verified: ??07/08/2022 16:29 ??Pathologist Performed at: ??-[facility] Dept. of Pathology, [place] [address] Medical Research Scientist: Vishal Gilliam MD, FCAP, ??CLIA Certificate: [id number] ADDITIONAL STUDIES Immunohistochemistry Studies: Formalin-fixed, paraffin-embedded tissue [...] note ? CD31 ? see note ? [id number] ? see note SPECIMEN(S) SUBMITTED A - [...] SPECIMEN PROCESSING ??pps 07/08/2022 4:29 PM EST [facility] GI Biopsy 07/03/2022 9:02 AM EST 07/03/2022 9:02 AM EST GI Biopsy 07/03/2022 9:02 AM EST 07/03/2022 9:02 AM EST David Dejesus MD PATHOLOGY/CYTOLOGY ORDERABLES Performing Organization Address [facility]/State/ZIP Co de Phone Number [facility] [place] [address] [facility] [place] [address] * Specimen to Pathology (07/03/2022 9:02 AM EST) AP Specimen 07/03/2022 9:02 AM EST 07/03/2022 9:02 AM EST Narrative [facility] - 07/03/2022 9:02 AM EST Specimen requisition ordered. ??Separate Pathology report to follow David Dejesus MD PATHOLOGY/CYTOLOGY ORDERABLES [facility] [place] [address] * Specimen to Pathology (07/03/2022 9:02 AM EST) AP Specimen 07/03/2022 9:02 AM EST 07/03/2022 9:02 AM EST Narrative [facility] - 07/03/2022 9:02 AM EST Specimen requisition ordered. ??Separate Pathology report to follow David Dejesus MD PATHOLOGY/CYTOLOGY ORDERABLES Performing Organization Address City/[facility]/[place] [address] * POCT Glucose (07/03/2022 7:37 AM EST) Glucose, POC 139 65 - 199 mg/dL [facility] Comment: Supplemental ranges: <140 mg/dL before meals <180 mg/dL all other times of the day Blood 07/03/2022 7:37 AM EST 07/03/2022 7:37 AM EST David Dejesus MD POINT OF CARE TEST ORDERABLES Performing Organization Address City/[facility] [place] [address] * UPPER GI ENDOSCOPY (07/03/2022 7:26 AM EST) UPPER GI ENDOSCOPY [facility] Endoscopy Procedure Date: 07/03/2022 7:26 AM ? Patient Name: Jennifer Irving ? Date of : 1960 ? Age: 62 ? Order #: [id number] ? Instrument Name: [id number] ? Procedure: ? Upper GI endoscopy Indications: [...] PROVATION 07/03/2022 7:26 AM EST Ana Gillespie APRN GENERAL SURGICAL [...] CRNA) documented in this encounter Care Teams Paid Intern Relationship Specialty Start Date End Date Ana Gillespie APRN [address] [place] [address] PCP - General Family Medicine 02/03/19 documented as of this encounter
--- OUTSIDE RECORDS SUMMARY | 2024-02-05 12:57 | XMS_ITS | Encounter Summary ---
Author Organization [facility] Address [facility] [address] Care Team Providers Care Tool Planner Name Role Phone Ana Gillespie VAUGHN Primary Care Provider [phone] Encounter Details Date Type Department Care Team (Latest Contact Info) Description 05/21/2022 2:30 PM EST TH Visit (TeleHealth) [place] [address] Alfonso Rose MD [facility] [place] [address] Neuroleptic-induced parkinsonism Social History Tobacco Use Types [...] us on an as-needed basis. This was [id number] call with greater than 10 minutes spent in counseling discussion regarding the above assessment and plan, with additional 10 minutes in review of the medical record. documented in this encounter Plan of Treatment Upcoming Encounters Date Type Department Care Team (Late st Contact Info) Description 03/10/2024 4:00 PM EDT Office Visit Cardiology at [address] [address] Milagros Hernandez MD [facility] [place] [address] Scheduled Procedures Name Priority Associated Diagnoses Date/Ti me EGD, UPPER GI ENDOSCOPY (WRV U 2.09) Peptic stricture of esophagus documented as of this encounter Visit Diagnoses Diagnosis Neuroleptic-induced parkinsonism Secondary Parkinsonism documented in this encounter Care Teams Tool Planner Relationship Specialty Start Date End Date Ana Gillespie APRN [address] [place] [address] PCP - General Family Medicine 02/03/19 documented as of this encounter
--- OUTSIDE RECORDS SUMMARY | 2024-02-05 12:57 | XMS_ITS | Encounter Summary ---
Author Organization [facility]ly [facility] [place] [address] Care Team Providers Care Supervisor Ticket Sales Name Role Phone Ana Gillespie APRN Primary Care Provider [phone] Encounter Details Date Type Department Care Team (Late st Contact Info) Description 12/01/2021 Telephone [place] [phone] Alla Mejia Social History Tobacco Use Types [...] - 12/01/2021 4:07 PM EDT Jennifer Irving [id number] Diagnosis/Indication: folow-up esophagitis Please review patient chart [...] No 18. You must have a responsible republican who will drive you to your procedure, stay on campus for the entire duration of your procedure, and drive you home from your procedure. Who will likely be your driver lifter of sanitation truck for the procedure? *Please Verify the height [...] PM EDT Office Visit Cardiology at [address] [address] Milagros Hernandez MD [facility] [place] [address] Scheduled Procedures Name Priority Associated Diagnoses Date/Ti me EGD, UPPER GI ENDOSCOPY (WRV U 2.09) Peptic stricture of esophagus documented as of this encounter Visit Diagnoses Not on filedocumented in this encounter Care Teams Supervisor Ticket Sales Relationship Specialty Start Date End Date Ana Gillespie APRN [address] [place] [address] PCP - General Family Medicine 02/03/19 documented as of this encounter
--- OUTSIDE RECORDS SUMMARY | 2024-02-05 12:57 | XMS_ITS | Encounter Summary ---
Author Organization [facility]ly [facility] Address [facility] [address] Care Team Providers Care Boat Finisher Name Role Phone Ana Gillespie VAUGHN Primary Care Provider [phone] Encounter Details Date Type Department Care Team (Late st Contact Info) Description 08/13/2022 Ancillary Procedure Radiology Library [place] [address] Social History Tobacco Use Types Packs/Day Years [...] PM EDT Office Visit Cardiology at [address] [address] Milagros Hernandez MD [facility] [place] [address] Scheduled Procedures Name Priority Associated Diagnoses Date/Ti [...] is for storage only. Ayo Serna MD [facility] FILM LIBRARY ORD ERABLES documented in this encounter Visit Diagnoses Not on filedocumented in this encounter Care Teams Boat Finisher Relationship Specialty Start Date End Date Ana Gillespie APRN [address] [place] [address] PCP - General Family Medicine 02/03/19 documented as of this encounter
--- OUTSIDE RECORDS SUMMARY | 2024-02-05 12:57 | XMS_ITS | Encounter Summary ---
Author Organization [facility] Address [facility] [place] [address] Care Team Providers Care Front Elevator Operator Name Role Phone Ana Gillespie VAUGHN Primary Care Provider [phone] Encounter Details Date Type Department Care Team (Late st Contact Info) Description 08/08/2022 12:10 AM EDT Ancillary Procedure Radiology Library at [facility] [place] [address] Social History Tobacco Use Types Packs/Day Years [...] 4:00 PM EDT Office Visit Cardiology at [address] [address] Milagros Hernandez MD [facility] [place] [address] Scheduled Procedures Name Priority Associated Diagnoses Date/Ti [...] is for storage only. Ayo Serna MD [facility] FILM LIBRARY ORD ERABLES documented in this encounter Visit Diagnoses Not on filedocumented in this encounter Care Teams Front Elevator Operator Relationship Specialty Start Date End Date Ana Gillespie APRN [address] [place] [address] PCP - General Family Medicine 02/03/19 documented as of this encounter
--- OUTSIDE RECORDS SUMMARY | 2024-02-05 12:57 | XMS_ITS | Encounter Summary ---
Author Organization [facility] Address [facility] [place] [address] Care Team Providers Care Men'S Locker Room Attendant Name Role Phone Jose Miguel Ana AGILE PROJECT MANAGER Primary Care Provider [phone] Encounter Details Date Type Department Care Team (Late st Contact Info) Description 08/09/2022 Ancillary Procedure Radiology Library [place] [address] Ana Gillespie APRN [address] [place] [address] Social History Tobacco Use Types [...] PM EDT Office Visit Cardiology at [address] [place] [address] Milagros Hernandez MD [facility] [place] [address] Scheduled Procedures Name Priority Associated Diagnoses Date/Ti me EGD, UPPER GI ENDOSCOPY (WRV U 2.09) Peptic stricture of esophagus documented as of this encounter Procedures Procedure Name Priority Date/Time Associated Diagnosis Comments FILM LIBRARY FLUORO OR [id number] ONLY Routine 08/09/2022 12:00 AM EDT documented in this encounter Results * Film Library - Fluoro or C Arm Storage Only (08/09/2022 12:00 AM EDT) Narrative QUIRINO - 08/14/2022 6:05 PM EDT This exam is auto-finalizing. It's purpose is for storage only. Ana Gillespie APRN IMG FILM LIBRARY ORD ERABLES Performing Organization Address City/State/[facility] Co de Phone Number [place], [place] documented in this encounter Visit Diagnoses Not on filedocumented in this encounter Care Teams Men'S Locker Room Attendant Relationship Specialty Start Date End Date Ana Gillespie APRN [address] [place] [address] PCP - General Family Medicine 02/03/19 documented as of this encounter
--- OUTSIDE RECORDS SUMMARY | 2024-02-05 12:57 | XMS_ITS | Encounter Summary ---
Author Organization [facility] Address [facility] [place] [address] Care Team Providers Care Seo Associate Name Role Phone Ana Gillespie APRN Primary Care Provider [phone] Encounter Details Date Type Department Care Team (Late st Contact Info) Description 06/23/2022 Telephone [place] [address] Ilene Sharma RN Social History Tobacco Use Types Packs/Day [...] PM EDT Office Visit Cardiology at [address] [phone] Milagros Hernandez MD [facility] [place] [address] Scheduled Procedures Name Priority Associated Diagnoses Date/Ti [...] documented as of this encounter Care Teams Seo Associate Relationship Specialty Start Date End Date Ana Gillespie APRN [address] [place] [address] PCP - General Family Medicine 02/03/19 documented as of this encounter
--- OUTSIDE RECORDS SUMMARY | 2024-02-05 12:57 | XMS_ITS | Encounter Summary ---
Author Organization [facility] Address [facility] [place] [address] Care Team Providers Care Home Care Chaplain Name Role Phone Ana Gillespie APRN Primary Care Provider [phone] Encounter Details Date Type Department Care Team (Late st Contact Info) Description 06/23/2022 Telephone [place] [address] Chiquita James, RN Social History [...] 4:00 PM EDT Office Visit Cardiology at [address] [address] Milagros Hernandez MD [facility] [place] [address] Scheduled Procedures Name Priority Associated Diagnoses Date/Ti me EGD, UPPER GI ENDOSCOPY (WRV U 2.09) Peptic stricture of esophagus documented as of this encounter Visit Diagnoses Not on filedocumented in this encounter Care Teams Home Care Chaplain Relationship Specialty Start Date End Date Ana Gillespie APRN [address] [place] [address] PCP - General Family Medicine 02/03/19 documented as of this encounter
--- OUTSIDE RECORDS SUMMARY | 2024-02-05 12:57 | XMS_ITS | Encounter Summary ---
Author Organization [facility] Address [facility] [place] [address] Care Team Providers Care Copping Machine Operator Name Role Phone Ana Gillespie APRN Primary Care Provider [phone] Encounter Details Date Type Department Care Team (Late st Contact Info) Description 03/31/2022 9:58 AM EST Anesthesia [place] [phone] Alfonso Duarte MD [facility] [place] [address] Sergey Hahn CRNA [facility] [place] [address] Anesthesia Record Procedure Summary Procedure Name Responsible [...] 920; median cubital vein (antecubital fossa), right; [id number] catheter system; Anatomical Landmarks; US Not Used; [...] Procedure Summary Date: 03/31/22 Room / Location: [facility] ENDO 2 / [facility] ENDOSCOPY Anesthesia Start: 957 Anesthesia Stop: 1038 Procedures: EGD WITH BIOPSY (WRVU 2.49) UPPER EUS- ENDOSCOPIC ULTRASOUND (Trunk) Diagnosis: (Schedule EGD in two years) Surgeons: David Dejesus MD Responsible Provider: Alfonso Duarte MD Anesthesia Type: MAC ASA Status: 3 All Anesthesia Providers: Anesthesiologist: Alfonso Duarte MD CHEMICAL PROCESS ENGINEER: Susy Juárez CRNA Vitals Value Taken Time BP 108/56 03/31/22 1050 Temp Pulse Resp 19 03/31/22 1050 SpO2 100 % 03/31/22 1100 Pain Level 0 03/31/22 1050 [facility] Level of Consciousness: Awake and [...] risks discussed with patient. Plan discussed with CHEMICAL PROCESS ENGINEER. Pre-Anesthesia Evaluation for: Jennifer Irving a 61 [...] 5 years - MAC without issue Plan [facility] Violet Miguel MD 01/26/2022 Assistant Research Scientist Pager #[phone] Informed Consent: Anesthesia Screening Pre-Anesthesia Evaluation for: [...] risks discussed with patient. Plan discussed with CHEMICAL PROCESS ENGINEER. Anesthesia Screening Anesthesia Screening documented in this encounter Plan of Treatment Upcoming Encounters Date Type Department Care Team (Late st Contact Info) Description 03/10/2024 4:00 PM EDT Office Visit Cardiology at [address] [address] Milagros Hernandez MD [facility] [place] [address] Scheduled Procedures Name Priority Associated Diagnoses Date/Ti [...] mg documented in this encounter Care Teams Copping Machine Operator Relationship Specialty Start Date End Date Ana Gillespie APRN [address] [place] [address] PCP - General Family Medicine 02/03/19 documented as of this encounter
--- OUTSIDE RECORDS SUMMARY | 2024-02-05 12:57 | XMS_ITS | Encounter Summary ---
Author Organization [facility] [place] [address] Care Team Providers Care Stamp Analyst Name Role Phone Ana Gillespie APRN Primary Care Provider [phone] Encounter Details Date Type Department Care Team (Late st Contact Info) Description 05/25/2022 Orders [place] [phone] David Dejesus MD [facility] [place] [address] Farrell's esophagus without dysplasia Social History Tobacco [...] PM EDT Office Visit Cardiology at [address] [phone] Milagros Hernandez MD [facility] [place] [address] Scheduled Procedures Name Priority Associated Diagnoses Date/Ti me EGD, UPPER GI ENDOSCOPY (WRV U 2.09) Peptic stricture of esophagus documented as of this encounter Visit Diagnoses Diagnosis Farrell's esophagus without dysplasia Farrell's esophagus documented in this encounter Care Teams Stamp Analyst Relationship Specialty Start Date End Date Ana Gillespie APRN [address] [place] [address] PCP - General Family Medicine 02/03/19 documented as of this encounter
--- OUTSIDE RECORDS SUMMARY | 2024-02-05 12:57 | XMS_ITS | Encounter Summary ---
Author Organization [facility] Address [facility] [place] [address] Care Team Providers Care [place] Name Role Phone Ana Gillespie VAUGHN Primary Care Provider [phone] Encounter Details Date Type Department Care Team (Late st Contact Info) Description 08/12/2022 Ancillary Procedure Radiology Library at [facility] [place] [place] [address] Social History Tobacco Use Types Packs/Day Years [...] PM EDT Office Visit Cardiology at [address] [address] Milagros Hernandez MD [facility] [place] [address] Scheduled Procedures Name Priority Associated Diagnoses Date/Ti [...] is for storage only. Ayo Serna MD [facility] FILM LIBRARY ORD ERABLES documented in this encounter Visit Diagnoses Not on filedocumented in this encounter Care Teams [place] Relationship Specialty Start Date End Date Ana Gillespie APRN [address] [place] [address] PCP - General Family Medicine 02/03/19 documented as of this encounter
--- OUTSIDE RECORDS SUMMARY | 2024-02-05 12:57 | XMS_ITS | Encounter Summary ---
Author Organization Counts Include [facility] Address [facility] [place] [address] Care Team Providers Care Learning Operations Specialist Name Role Phone Ana Gillespie VAUGHN Primary Care Provider Encounter Details Date Type Department Care Team (Late st Contact Info) Description 08/12/2022 12:05 AM EDT Ancillary Procedure Radiology Library at [facility] [place] [address] Social History Tobacco Use Types Packs/Day Years [...] PM EDT Office Visit Cardiology at [address] [address] Milagros Hernandez MD [facility] [place] [address] Scheduled Procedures Name Priority Associated Diagnoses Date/Ti [...] is for storage only. Ayo Serna MD [facility] FILM LIBRARY ORD ERABLES documented in this encounter Visit Diagnoses Not on filedocumented in this encounter Care Teams Learning Operations Specialist Relationship Specialty Start Date End Date Ana Gillespie APRN [address] [place] [address] PCP - General Family Medicine 02/03/19 documented as of this encounter
--- OUTSIDE RECORDS SUMMARY | 2024-02-05 12:57 | XMS_ITS | Encounter Summary ---
[place] [address] Care Team Providers Care Desilverizer Name Role Phone Ana Gillespie VAUGHN Primary Care Provider [phone] Reason for Referral * Diagnostic Test (Routine) - Closed Specialty Diagnoses / Procedures Referred By Contac t Referred To Contact Cardiology Diagnoses Sepsis, due to unspecified organism, unspecified whether acute organ dysfunction present Procedures Mobile Sergey Chaparro MD [address] [facility] [place] [address] [facility] [place] [address] Referral ID Status Reason Start Date Expiration Date V isits Requested Visits Authorized [id number] Closed Specialty Service Requested 08/14/2022 08/14/2023 1 1 Reason for Visit * Diagnostic Test (Routine) - Closed Specialty Diagnoses / Procedures Referred By Contac t Referred To Contact Cardiology Diagnoses Sepsis, due to unspecified organism, unspecified whether acute organ dysfunction present Procedures Mobile Sergey Chaparro MD [address] [facility] [place] [place] [address] [facility] [place] [place] [address] Referral ID Status Reason Start Date Expiration Date V isits Requested Visits Authorized [id number] Closed Specialty Service Requested 08/14/2022 08/14/2023 1 1 Encounter Details Date Type Department Care Team (Late st Contact Info) Description 08/14/2022 3:35 PM EDT - 08/14/2022 9:29 PM EDT Hospital Encounter [place] [address] Sergey Ayala MD [address] [place] [address] Sepsis, due to unspecified organism, unspecified whether [...] strips. 300 each 3 12/14/2014 Blood-Glucose Meter ([employer]UCH ULTRA2) KitIndications:Type 2 diabetes mellitus, uncontrolled by Other route. 1 = one blood glucose meter kit. 1 each 0 12/14/2014 Insulin [place], Disposable, (BD INSULIN PEN NEEDLE UF MINI) 31 x 3/16 NeedleIndications:Di abetes mellitus type 2, uncontrolled 1 Device by [facility] [place]Non-Drug; Combo Route) route 3 times daily as [...] PM EDT Office Visit Cardiology at [address] [address] Milagros Hernandez MD [facility] [place] [address] Scheduled Procedures Name Priority Associated Diagnoses Date/Ti [...] 1960 ? Height: 152 cm ? Account: [id number] Age: 62 yrs ? Weight: 69 kg Gender: Female ?BSA: 1.7 m2 Ordering Physician: SERGEY AYALA Referring Physician: SERGEY AYALA Performed By: MARGAUX Reason For Study: Sepsis Exam Location: [facility]. Interpretation Summary 1. Left ventricular systolic function [...] 4. No pericardial effusion No prior Procedure Complete-[id number]. Suboptimal quality. Left Ventricle Left ventricle is [...] Berg MD - 08/17/2022 Echocardiogram Report Name: TERRY IRVINGJose Juan Orlando Study Date:08/14/2022 01:47 PMBP: 115/77 mmHg Patient [facility]: [facility]^CV24^A : 1960 Height: 152 cm Account: [id number] Age: 62 yrs Weight: 69 kg Gender: Female BSA: 1.7 m2 Ordering Physician: SERGEY AYALA Referring Physician: SERGEY AYALA Performed By: MARGAUX Reason For Study: Sepsis Exam Location: [facility]. Interpretation Summary 1. Left ventricular systolic function [...] 4. No pericardial effusion No prior Procedure Complete-[id number]. Suboptimal quality. Left Ventricle Left ventricle is [...] 6-14large Aneurysmal 15-16diffuse Sergey Ayala MD ECHO ORDERAB LES documented in this encounter Visit Diagnoses Diagnosis Sepsis, due to unspecified organism, unspecified whether acute organ dysfunction present documented in this encounter Care Teams Desilverizer Relationship Specialty Start Date End Date Ana Gillespie APRN [address] [place] [address] PCP - General Family Medicine 02/03/19 documented as of this encounter
--- OUTSIDE RECORDS SUMMARY | 2024-02-05 12:57 | XMS_ITS | Encounter Summary ---
Author Organization [facility] [place] [address] Care Team Providers Care Svp Research And Strategic Analysis Name Role Phone Ana Gillespie APRN Primary Care Provider [phone] Encounter Details Date Type Department Care Team [...] PM EDT Office Visit Cardiology at [address] [address] Milagros Hernandez MD [facility] [place] [address] Scheduled Procedures Name Priority Associated Diagnoses Date/Ti me EGD, UPPER GI ENDOSCOPY (WRV U 2.09) Peptic stricture of esophagus documented as of this encounter Visit Diagnoses Not on filedocumented in this encounter Care Teams Svp Research And Strategic Analysis Relationship Specialty Start Date End Date Ana Gillespie APRN [address] [place] [address] PCP - General Family Medicine 02/03/19 documented as of this encounter
--- OUTSIDE RECORDS SUMMARY | 2024-02-05 12:57 | XMS_ITS | Encounter Summary ---
Author Organization [facility] Address [facility] [place] [address] Care Team Providers Care Product Engineer Name Role Phone Ana Gillespie VAUGHN Primary Care Provider [phone] Encounter Details Date Type Department Care Team (Late st Contact Info) Description 08/14/2022 Telephone Cardiology at [address] [address] Jesenia Mejía MD [facility] [place] [address] Social History Tobacco Use Types Packs/Day Years [...] 08/14/2022 Initial Contact Time: 17:36 Patient Location: [facility] Provider: Dr. Sevilla Presenting Symptoms per OSH: [...] code status and [facility] [place] Pertinent Diagnostic Findings: - Troponin-I 1686 (ULN 60) - Pro-BNP > 35,000 - ECG sinus tachycardia with PVCs, anterior Q waves OSH Interventions: - Dobutamine 2.5 mcg/kg/shawanda - Lasix gtt 5 mg/hr - Heparin gtt - Aspirin 300 rectal BID (after hip) Plan: - Transfer to [facility] - Plavix load Above recommendations/plans are based on my conversation with the referring provider. I have not personally interviewed or examined this patient. Jesenia Mejía MD Branding Machine Operator PGY-5 [facility] documented in this encounter Plan of Treatment Upcoming Encounters Date Type Department Care Team (Late st Contact Info) Description 03/10/2024 4:00 PM EDT Office Visit Cardiology at [address] [address] Milagros Hernandez MD [facility] [place] [address] Scheduled Procedures Name Priority Associated Diagnoses Date/Ti me EGD, UPPER GI ENDOSCOPY (WRV U 2.09) Peptic stricture of esophagus documented as of this encounter Visit Diagnoses Not on filedocumented in this encounter Care Teams Product Engineer Relationship Specialty Start Date End Date Ana Gillespie APRN [address] [place] [address] PCP - General Family Medicine 02/03/19 documented as of this encounter
--- OUTSIDE RECORDS SUMMARY | 2024-02-05 12:57 | XMS_ITS | Encounter Summary ---
Author Organization [facility] [place] [address] Care Team Providers Care Head Of Quality Name Role Phone Ana Gillespie APRN Primary Care Provider [phone] Encounter Details Date Type Department Care Team (Late st Contact Info) Description 07/09/2022 Orders [place] [phone] 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 [place] [address] Scheduled Orders Name Type Priority Associated Diagnoses [...] esophagus documented in this encounter Care Teams Head Of Quality Relationship Specialty Start Date End Date Ana Gillespie APRN [address] [place] [address] PCP - General Family Medicine 02/03/19 documented as of this encounter
--- OUTSIDE RECORDS SUMMARY | 2024-02-05 12:57 | XMS_ITS | Encounter Summary ---
Author Organization [facility] Address [facility] [place] [address] Care Team Providers Care Shrimp Peeling Machine Operator Name Role Phone Ana Gillespie VAUGHN Primary Care Provider [phone] Reason for Visit * Reason Onset Date Comments TeleHealth 05/20/2022 Medication and a llergy review. Encounter Details Date Type Department Care Team (Late st Contact Info) Description 05/20/2022 Tele[place] [phone] Alfonso Rose MD [facility] [address] NEUROLOGY [place] [address] TeleHealth (Medication and allergy review. ) Social [...] 4:00 PM EDT Office Visit Cardiology at [address] [address] Milagros Hernandez MD [facility] [place] [address] Scheduled Procedures Name Priority Associated Diagnoses Date/Ti me EGD, UPPER GI ENDOSCOPY (WRV U 2.09) Peptic stricture of esophagus documented as of this encounter Visit Diagnoses Not on filedocumented in this encounter Care Teams Shrimp Peeling Machine Operator Relationship Specialty Start Date End Date Ana Gillespie APRN [address] [place] [address] PCP - General Family Medicine 02/03/19 documented as of this encounter
--- OUTSIDE RECORDS SUMMARY | 2024-02-05 12:57 | XMS_ITS | Encounter Summary ---
[place] [address] Care Team Providers Care Automation And Controls Supervisor Name Role Phone Ana Gillespie VAUGHN Primary Care Provider Encounter Details Date Type Department Care Team (Late st Contact Info) Description 06/23/2022 Telephone [place] [phone] Jessica Beckman Social History Tobacco Use Types [...] called in to resched pt egd w/Dr Oleg serrato. Resched pt for 08/04 first avail. documented in this encounter Plan of Treatment Upcoming Encounters Date Type Department Care Team (Late st Contact Info) Description 03/10/2024 4:00 PM EDT Office Visit Cardiology at [address] [phone] Milagros Hernandez MD [facility] [address] Scheduled Procedures Name Priority Associated Diagnoses Date/Ti me EGD, UPPER GI ENDOSCOPY (WRV U 2.09) Peptic stricture of esophagus documented as of this encounter Visit Diagnoses Not on filedocumented in this encounter Care Teams Automation And Controls Supervisor Relationship Specialty Start Date End Date Ana Gillespie APRN [address] [place] [address] PCP - General Family Medicine 02/03/19 documented as of this encounter
--- OUTSIDE RECORDS SUMMARY | 2024-02-05 12:57 | XMS_ITS | Encounter Summary ---
[place] [address] Care Team Providers Care Glass Presser Name Role Phone Ana Gillespie VAUGHN Primary Care Provider [phone] Encounter Details Date Type Department Care Team (Late st Contact Info) Description 05/28/2022 Telephone [place] [phone] Chiquita James, RN Social History Tobacco Use [...] 4:00 PM EDT Office Visit Cardiology at [address] [phone] Milagros Hernandez MD [facility] [place] [address] Scheduled Procedures Name Priority Associated Diagnoses Date/Ti me EGD, UPPER GI ENDOSCOPY (WRV U 2.09) Peptic stricture of esophagus documented as of this encounter Visit Diagnoses Not on filedocumented in this encounter Care Teams Glass Presser Relationship Specialty Start Date End Date Ana Gillespie APRN [address] [place] [address] PCP - General Family Medicine 02/03/19 documented as of this encounter
--- OUTSIDE RECORDS SUMMARY | 2024-02-05 12:57 | XMS_ITS | Encounter Summary ---
Author Organization [facility] [place] [address] Care Team Providers Care Field Marketing Director Name Role Phone Ana Gillespie VAUGHN Primary Care Provider [phone] Reason for Visit * Auth/Cert (Routine) Specialty Diagnoses / Procedures Referred By Esperanza rodríguez Referred To Contact Diagnoses Shock CARDIOGENIC PULMONARY EDEMA Procedures ER Carlos Melton MD [facility] [place] [address] [facility] Referral ID Status Reason Start Date Expiration Date Visits Re quested Visits Authorized [id number] 1 1 Encounter Details Date Type Department Care Team (Latest Contact Info) Description 08/15/2022 9:15 AM EDT - 08/15/2022 11:59 PM EDT Hospital Encounter Non[place] [address] Discharge Disposition: Home Social History Tobacco Use [...] meter kit. 1 each 0 12/14/2014 Insulin [place], Disposable, (BD INSULIN PEN NEEDLE UF MINI) 31 x 07/23 NeedleIndications:Di abetes mellitus type 2, uncontrolled 1 Device by [facility] [place]Non-[place]rug; Combo Route) route 3 times [...] PM EDT Office Visit Cardiology at [address] [address] Milagros Hernandez MD [facility] [place] [address] Scheduled Procedures Name Priority Associated Diagnoses Date/Ti [...] 10:34 AM EDT ? Echocardiogram Report Name: JENNIFER IRVING ? Study Date: 08/15/2022 09:38 AMBP: 102/54 mmHg ? Patient Location: 4A 0000 ? HR: 99 : 1960 ? Height: 152 cm ? Account: [id number] Age: 62 yrs ? Weight: 69 kg Gender: Female ?BSA: 1.7 m2 Ordering Physician: VENKAT^M Referring Physician: NIURKA AYALA Performed By: Raissa Bhakta RDCS Reason For Study: Septic shock Exam Location: [facility]. Interpretation Summary -Left ventricle is [...] today's date, LVEF is slightly improved. Procedure Complete-[id number]. Satisfactory quality. There is normal sinus rhythm. [...] Echocardiogram Report Name: JENNIFER IRVING Study Date: 309:38 AMBP: 102/54 mmHg Patient Location: [id number] HR: 99 : 1960 Height: 152 cm Account: [id number] Age: 62 yrs Weight: 69 kg Gender: Female BSA: 1.7 m2 Ordering Physician: VENKAT^Johanny Referring Physician: NIURKA AYALA Performed By: Raissa Bhakta RDCS Reason For Study: Septic shock Exam Location: [facility]. Interpretation Summary -Left ventricle is [...] today's date, LVEF is slightly improved. Procedure Complete-[id number]. Satisfactory quality. There is normal sinus rhythm. [...] documented as of this encounter Care Teams Field Marketing Director Relationship Specialty Start Date End Date Ana Gillespie APRN [address] [place] [address] PCP - General Family Medicine 02/03/19 documented as of this encounter
--- OUTSIDE RECORDS SUMMARY | 2024-02-05 12:57 | XMS_ITS | Encounter Summary ---
Author Organization [facility] Address [facility] [place] [address] Care Team Providers Care Fraud Examiner Name Role Phone Ana Gillespie PRINT CUTTER Primary Care Provider [phone] Encounter Details Date Type Department Care Team (Late st Contact Info) Description 08/24/2022 Orders [place] [phone] Chace Carrera [facility] [place] [address] Social History Tobacco Use Types Packs/Day Years [...] PM EDT Office Visit Cardiology at [address] [phone] Milagros Hernandez MD [facility] [place] [address] Scheduled Procedures Name Priority Associated Diagnoses Date/Ti me EGD, UPPER GI ENDOSCOPY (WRV U 2.09) Peptic stricture of esophagus documented as of this encounter Visit Diagnoses Not on filedocumented in this encounter Care Teams Fraud Examiner Relationship Specialty Start Date End Date Ana Gillespie APRN [address] [place] [address] PCP - General Family Medicine 02/03/19 documented as of this encounter
--- OUTSIDE RECORDS SUMMARY | 2024-02-05 12:57 | XMS_ITS | Encounter Summary ---
Author Organization [facility] [place] [address] Care Team Providers Care Cleat Thrower Name Role Phone Ana Gillespie VAUGHN Primary Care Provider [phone] Encounter Details Date Type Department Care Team (Late st Contact Info) Description 01/28/2022 Telephone Gastroenterology at [facility] [place] [phone] Ting Patton Social History Tobacco Use Types [...] - 01/28/2022 12:14 PM EDT Jennifer Irving [id number] Diagnosis/Indication: Schedule EGD in two years Please [...] your procedure. Who will likely be your tractor driver teamster for the procedure? *Please Verify the height [...] PM EDT Office Visit Cardiology at [address] [address] Milagros Hernandez MD [facility] [place] [address] Scheduled Procedures Name Priority Associated Diagnoses Date/Ti me EGD, UPPER GI ENDOSCOPY (WRV U 2.09) Peptic stricture of esophagus documented as of this encounter Visit Diagnoses Not on filedocumented in this encounter Care Teams Cleat Thrower Relationship Specialty Start Date End Date Ana Gillespie APRN [address] [place] [address] PCP - General Family Medicine 02/03/19 documented as of this encounter
--- OUTSIDE RECORDS SUMMARY | 2024-02-05 12:57 | XMS_ITS | Encounter Summary ---
Author Organization [facility] [place] [address] Care Team Providers Care Oil Well Directional Surveyor Name Role Phone Aan Gillespie APRN Primary Care Provider [phone] Encounter Details Date Type Department Care Team (Late st Contact Info) Description 07/03/2022 8:40 AM EST Anesthesia [place] [phone] Shanell Taylor MD [facility] [place] [address] Halima Jeong CRNA [facility] [place] [address] Anesthesia Record Procedure Summary Procedure Name Responsible [...] Procedure Summary Date: 07/03/22 Room / Location: [facility] / [facility] Anesthesia Start: 839 Anesthesia Stop: 900 Procedure: EGD WITH BIOPSY (WRVU 2.49) (Trunk) Diagnosis: 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 Patient Location: PACU/[facility] Level of Consciousness: Conscious but Sleepy Pain [...] BX performed by David Dejesus MD at [facility] ??? PRO COLONOSCOPY, DIAGNOSTIC N/A 03/01/2020 COLONOSCOPY, DIAGNOSTIC performed by David Dejesus MD at [facility] ??? PRO ENDOSCOPIC US EXAM, ESOPH N/A 03/31/2022 UPPER EUS- ENDOSCOPIC ULTRASOUND performed by David Dejesus MD at [facility] ??? PRO UPPER GI ENDOSCOPY, BIOPSY N/A 04/03/2014 UPPER GASTROINTESTINAL ENDOSCOPY,WITH BIOPSY SINGLE OR MULTIPLE performed by David Dejesus MDat [facility] ??? PRO UPPER GI ENDOSCOPY, BIOPSY N/A 03/20/2016 EGD WITH BIOPSY performed by David Dejesus MD at [facility] ??? PRO UPPER GI ENDOSCOPY, BIOPSY N/A 11/22/2018 EGD WITH BIOPSY (WRVU 2.49) performed by David Dejesus MD at [facility] ??? PRO UPPER GI ENDOSCOPY, BIOPSY N/A 03/01/2020 UPPER GASTROINTESTINAL ENDOSCOPY,WITH BIOPSY SINGLE OR MULTIPLE (WRVU 2.49) performed by David Dejesus MD at [facility] ??? PRO UPPER GI ENDOSCOPY, BIOPSY N/A 09/23/2021 EGD WITH BIOPSY (WRVU 2.49) performed by David Dejesus MD at [facility] ??? PRO UPPER GI ENDOSCOPY, BIOPSY N/A 03/31/2022 EGD WITH BIOPSY (WRVU 2.49) performed by David Dejesus MD at [facility] ??? PRO UPPER GI ENDOSCOPY, DIAGNOSTIC N/A 04/03/2014 EGD, UPPER GI ENDOSCOPY performed by Dvaid Dejesus MD at [facility] ??? PRO UPPER GI ENDOSCOPY, DIAGNOSTIC N/A 03/01/2020 EGD, UPPER GI ENDOSCOPY performed by David Dejesus MD at [facility] Social History Tobacco Use ??? [...] with patient and spouse. Plan discussed with ROLL UP HELPER and attending. Anesthesia Screening Code Status: Full code I discussed the risks of general anesthesia as detailed by the preoperative anesthesia consent withthis patient. The patient demonstrated adequate understanding and acknowledged these risks and wishes to proceed with scheduled surgery. All questions related to anesthetic care were welcomed and answered to satisfaction. Shanell Taylor MD MS Anesthesiologist, [facility] Pager [phone] documented in this encounter Plan of Treatment Upcoming Encounters Date Type Department Care Team (Late st Contact Info) Description 03/10/2024 4:00 PM EDT Office Visit Cardiology at [address] [address] Milagros Hernandez MD [facility] [place] [address] Scheduled Procedures Name Priority Associated Diagnoses Date/Ti [...] mg documented in this encounter Care Teams Oil Well Directional Surveyor Relationship Specialty Start Date End Date Ana Gillespie APRN [address] [place] [address] PCP - General Family Medicine 02/03/19 documented as of this encounter
--- OUTSIDE RECORDS SUMMARY | 2024-02-05 12:58 | XMS_ITS | Encounter Summary ---
Author Organization [facility] [place] [address] Care Team Providers Care Regulatory Compliance Coordinator Name Role Phone Ana Gillespie VAUGHN Primary Care Provider [phone] Encounter Details Date Type Department Care Team (Late st Contact Info) Description 09/08/2021 Telephone [place] [address] Nicole Mariscal Social History Tobacco Use Types [...] PM EDT Office Visit Cardiology at [address] [address] Milagros Hernandez MD [facility] [place] [address] Scheduled Procedures Name Priority Associated Diagnoses Date/Ti me EGD, UPPER GI ENDOSCOPY (WRV U 2.09) Peptic stricture of esophagus documented as of this encounter Visit Diagnoses Not on filedocumented in this encounter Care Teams Regulatory Compliance Coordinator Relationship Specialty Start Date End Date Ana Gillespie APRN [address] [place] [address] PCP - General Family Medicine 02/03/19 documented as of this encounter
--- OUTSIDE RECORDS SUMMARY | 2024-02-05 12:58 | XMS_ITS | Encounter Summary ---
Author Organization [facility] Address [facility] [place] [address] Care Team Providers Care Watch And Clock Maker And Repairer Name Role Phone Ana Gillespie VAUGHN Primary Care Provider [phone] Encounter Details Date Type Department Care Team (Late st Contact Info) Description 12/28/2019 Telephone [place] [address] Rober Tobin Social History Tobacco [...] PM EDT Office Visit Cardiology at [address] [address] Milagros Hernandez MD [facility] [place] [address] Scheduled Procedures Name Priority Associated Diagnoses Date/Ti me EGD, UPPER GI ENDOSCOPY (WRV U 2.09) Peptic stricture of esophagus documented as of this encounter Visit Diagnoses Not on filedocumented in this encounter Care Teams Watch And Clock Maker And Repairer Relationship Specialty Start Date End Date Ana Gillespie APRN [address] [place] [address] PCP - General Family Medicine 02/03/19 documented as of this encounter
--- OUTSIDE RECORDS SUMMARY | 2024-02-05 12:58 | XMS_ITS | Encounter Summary ---
Author Organization [facility] [place] [address] Care Team Providers Care Woodworking Machine Operator Name Role Phone Ana Gillespie APRN Primary Care Provider [phone] Encounter Details Date Type Department Care Team (Late Contact Info) Description 10/27/2021 Orders [place] [phone] David Dejesus MD [facility] [place] [address] Gastroesophageal reflux disease with esophagitis without hemorrhage [...] PM EDT Office Visit Cardiology at [address] [phone] Milagros Hernandez MD [facility] [place] [address] Scheduled Procedures Name Priority Associated Diagnoses Date/Ti me EGD, UPPER GI ENDOSCOPY (WRV U 2.09) Peptic stricture of esophagus documented as of this encounter Visit Diagnoses Diagnosis Gastroesophageal reflux disease with esophagitis without hemorrhage documented in this encounter Care Teams Woodworking Machine Operator Relationship Specialty Start Date End Date Ana Gillespie APRN [address] [place] [address] PCP - General Family Medicine 02/03/19 documented as of this encounter
--- OUTSIDE RECORDS SUMMARY | 2024-02-05 12:58 | XMS_ITS | Encounter Summary ---
Author Organization [facility] Address [facility] [place] [address] Care Team Providers Care Sales Representative Door To Door Name Role Phone Ana Gillespie VAUGHN Primary Care Provider [phone] Encounter Details Date Type Department Care Team (Late st Contact Info) Description 09/29/2021 Telephone [place] [phone] David Dejesus MD [facility] [place] [address] Social History Tobacco Use Types Packs/Day Years [...] PM EDT Office Visit Cardiology at [address] [phone] Milagros Hernandez MD [facility] [place] [address] Scheduled Procedures Name Priority Associated Diagnoses Date/Ti me EGD, UPPER GI ENDOSCOPY (WRV U 2.09) Peptic stricture of esophagus documented as of this encounter Visit Diagnoses Not on filedocumented in this encounter Care Teams Sales Representative Door To Door Relationship Specialty Start Date End Date Ana Gillespie APRN [address] [place] [address] PCP - General Family Medicine 02/03/19 documented as of this encounter
--- OUTSIDE RECORDS SUMMARY | 2024-02-05 12:58 | XMS_ITS | Encounter Summary ---
[place] [address] Care Team Providers Care Conduit Helper Name Role Phone Ana Gillespie VAUGHN Primary Care Provider [phone] Reason for Visit * Reason Onset Date Comments Prior Authorization 10/21/2021 Encounter Details Date Type Department Care Team (Late st Contact Info) Description 10/21/2021 Telephone [place] [address] Libby Liu CCMA Prior Authorization Social History [...] Prior Authorization 4L Gastroenterology / [place] [address] Subscriber Insurance: [place] Medicaid Phone: Fax: Physician: David Dejesus NPI: Return Pharmacy: Phone: Fax: Medication Requested: Pantoprazole Strength:40mg Frequency: Take 1 Tablet by mouth twice daily Disp.: Refills: Currently taking: yes Diagnosis for this medication: Farrell's, GERD ICD-10 code: (K22.70) (K21.00) Prior medications trialed in this patient: Esomeprazole, Pantoprazole 1x daily, 20mg, Sucralfate Medication: Outcome/Adverse Reactions:Treatment Failure Decision: Approved Tracking number/Case number/Reference number: [id number] Effective date: Start: 10/21/2021 End: 10/21/2022 documented in this encounter Plan of Treatment Upcoming Encounters Date Type Department Care Team (Late st Contact Info) Description 03/10/2024 4:00 PM EDT Office Visit Cardiology at [address] [phone] Milagros Hernandez MD [facility] [place] [address] Scheduled Procedures Name Priority Associated Diagnoses Date/Ti me EGD, UPPER GI ENDOSCOPY (WRV U 2.09) Peptic stricture of esophagus documented as of this encounter Visit Diagnoses Not on filedocumented in this encounter Care Teams Conduit Helper Relationship Specialty Start Date End Date Ana Gillespie APRN [address] [place] [address] PCP - General Family Medicine 02/03/19 documented as of this encounter
--- OUTSIDE RECORDS SUMMARY | 2024-02-05 12:58 | XMS_ITS | Encounter Summary ---
Author Organization [facility] [place] [address] Care Team Providers Care Labor Relations Worker Name Role Phone Ana Gillespie APRN Primary Care Provider [phone] Encounter Details Date Type Department Care Team (Late st Contact Info) Description 09/09/2021 11:59 PM EDT Anesthesia Event [place] [phone] Bel Villanueva MD [facility] [place] [address] Parris Steinberg CRNA [facility] [place] [address] Anesthesia Record Procedure Summary Procedure Name Responsible [...] BX performed by David Dejesus MD at [facility] ENDOSCOPY ??? PRO COLONOSCOPY, DIAGNOSTIC N/A 03/01/2020 COLONOSCOPY, DIAGNOSTIC performed by David Dejesus MD at [facility] ENDOSCOPY ??? PRO UPPER GI ENDOSCOPY, BIOPSY N/A 04/03/2014 UPPER GASTROINTESTINAL ENDOSCOPY,WITH BIOPSY SINGLE OR MULTIPLE performed by David Dejesus MDat [facility] ENDOSCOPY ??? PRO UPPER GI ENDOSCOPY, BIOPSY N/A 03/20/2016 EGD WITH BIOPSY performed by David Dejesus MD at [facility] ENDOSCOPY ??? PRO UPPER GI ENDOSCOPY, BIOPSY N/A 11/22/2018 EGD WITH BIOPSY (WRVU 2.49) performed by David Dejesus MD at [facility] ENDOSCOPY ??? PRO UPPER GI ENDOSCOPY, BIOPSY N/A 03/01/2020 UPPER GASTROINTESTINAL ENDOSCOPY,WITH BIOPSY SINGLE OR MULTIPLE (WRVU 2.49) performed by David Dejesus MD at [facility] ENDOSCOPY ??? PRO UPPER GI ENDOSCOPY, DIAGNOSTIC N/A 04/03/2014 EGD, UPPER GI ENDOSCOPY performed by David Dejesus MD at [facility] ENDOSCOPY ??? PRO UPPER GI ENDOSCOPY, DIAGNOSTIC N/A 03/01/2020 EGD, UPPER GI ENDOSCOPY performed by David Dejesus MD at [facility] ENDOSCOPY Social History Tobacco Use ??? [...] risks discussed with patient. Plan discussed with TEACHER ASSISTANT. Anesthesia Screening documented in this encounter Plan of Treatment Upcoming Encounters Date Type Department Care Team (Late st Contact Info) Description 03/10/2024 4:00 PM EDT Office Visit Cardiology at [address] [phone] Milagros Hernandez MD [facility] [place] [address] Scheduled Procedures Name Priority Associated Diagnoses Date/Ti me EGD, UPPER GI ENDOSCOPY (WRV U 2.09) Peptic stricture of esophagus documented as of this encounter Visit Diagnoses Not on filedocumented in this encounter Care Teams Labor Relations Worker Relationship Specialty Start Date End Date Ana Gillespie APRN [address] [place] [address] PCP - General Family Medicine 02/03/19 documented as of this encounter
--- OUTSIDE RECORDS SUMMARY | 2024-02-05 12:58 | XMS_ITS | Encounter Summary ---
Author Organization [facility] [place] [address] Care Team Providers Care Air Quality Specialist Name Role Phone Ana Gillespie VAUGHN Primary Care Provider [phone] Encounter Details Date Type Department Care Team (Late st Contact Info) Description 09/10/2021 Telephone [place] [address] Chiquita James, RN Social History [...] PM EDT Office Visit Cardiology at [address] [phone] Milagros Hernandez MD [facility] [place] [address] Scheduled Procedures Name Priority Associated Diagnoses Date/Ti me EGD, UPPER GI ENDOSCOPY (WRV U 2.09) Peptic stricture of esophagus documented as of this encounter Visit Diagnoses Not on filedocumented in this encounter Care Teams Air Quality Specialist Relationship Specialty Start Date End Date Ana Gillespie APRN [address] [place] [address] PCP - General Family Medicine 02/03/19 documented as of this encounter
--- OUTSIDE RECORDS SUMMARY | 2024-02-05 12:58 | XMS_ITS | Encounter Summary ---
Author Organization [facility] [place] [address] Care Team Providers Care Delivery Architect Name Role Phone Ana Gillespie VAUGHN Primary Care Provider [phone] Encounter Details Date Type Department Care Team (Late st Contact Info) Description 10/29/2021 Telephone [place] [phone] Juice Maxwell RN Social History Tobacco Use [...] PM EDT Office Visit Cardiology at [address] [phone] Milagros Hernandez MD [facility] [place] [address] Scheduled Procedures Name Priority Associated Diagnoses Date/Ti me EGD, UPPER GI ENDOSCOPY (WRV U 2.09) Peptic stricture of esophagus documented as of this encounter Visit Diagnoses Not on filedocumented in this encounter Care Teams Delivery Architect Relationship Specialty Start Date End Date Ana Gillespie APRN [address] [place] [address] PCP - General Family Medicine 02/03/19 documented as of this encounter
--- OUTSIDE RECORDS SUMMARY | 2024-02-05 12:58 | XMS_ITS | Encounter Summary ---
[place] [address] Care Team Providers Care Baggageman Name Role Phone Ana Gillespie VAUGHN Primary Care Provider [phone] Encounter Details Date Type Department Care Team (Late st Contact Info) Description 07/18/2021 Tele[place] [address] Chiquita James, RN Social History [...] PM EDT Office Visit Cardiology at [address] [phone] Milagros Hernandez MD [facility] [place] [address] Scheduled Procedures Name Priority Associated Diagnoses Date/Ti me EGD, UPPER GI ENDOSCOPY (WRV U 2.09) Peptic stricture of esophagus documented as of this encounter Visit Diagnoses Not on filedocumented in this encounter Care Teams Baggageman Relationship Specialty Start Date End Date Ana Gillespie APRN [address] [place] [address] PCP - General Family Medicine 02/03/19 documented as of this encounter
--- OUTSIDE RECORDS SUMMARY | 2024-02-05 12:58 | XMS_ITS | Encounter Summary ---
Author Organization [facility] [place] [address] Care Team Providers Care Microstrategy Reports Developer Name Role Phone Ana Gillespie VAUGHN Primary Care Provider [phone] Encounter Details Date Type Department Care Team (Late st Contact Info) Description 07/07/2021 Telephone [place] [phone] Ting Patton Social History Tobacco Use Types [...] PM EDT Office Visit Cardiology at [address] [phone] Milagros Hernandez MD [facility] [place] [address] Scheduled Procedures Name Priority Associated Diagnoses Date/Ti me EGD, UPPER GI ENDOSCOPY (WRV U 2.09) Peptic stricture of esophagus documented as of this encounter Visit Diagnoses Not on filedocumented in this encounter Care Teams Microstrategy Reports Developer Relationship Specialty Start Date End Date Ana Gillespie APRN [address] [place] [address] PCP - General Family Medicine 02/03/19 documented as of this encounter
--- OUTSIDE RECORDS SUMMARY | 2024-02-05 12:58 | XMS_ITS | Encounter Summary ---
Author Organization [facility] Address [facility] [place] [address] Care Team Providers Care Commissary Clerk Name Role Phone Ana Gillespie VAUGHN Primary Care Provider [phone] Encounter Details Date Type Department Care Team (Latest Contact Info) Description 03/01/2020 6:57 AM EDT - 03/01/2020 10:26 AM EDT Hospital Encounter Gastroenterology at [facility] [place] [address] David Dejesus MD [facility] [place] [address] Discharge Disposition: Home Social History Tobacco Use [...] the day after the procedure, use an keiq-cub-xnzhzqs spray to numb your throat. Sucking on [...] occurs, please contact your Doctor. Please call [phone] before 8pm Mon-Fri with problems, questions or concerns. If you call after 8pm or on weekends, call the Hospital at [phone] and ask to speak to the Laminating Machine Tender control supervisor and the para machine operator will contact that person for you. When should you call for help? Call [phone] anytime you think you may need emergency [...] any problems. Where can you learn more? [facility] View your After Visit Summary and more online at [email or web address] If you would like to provide feedback [...] cost to you. Content Version: 12.2 ?? 6701-8530 [employer]. Care instructions adapted under license by [facility]. If you have questions about a medical condition or this instruction, always ask your healthcare professional. [employer] disclaims any warranty or liability for your [...] occurs, please contact your Doctor. Please call [phone] before 8pm Mon-Fri with problems, questions or concerns. If you call after 8pm or on weekends, call the Hospital at [phone] and ask to speak to the Laminating Machine Tender control supervisor and the para machine operator will contact that person for you. When should you call for help? Call [phone] anytime you think you may need emergency [...] any problems. Where can you learn more? [facility] View your After Visit Summary and more online at [email or web address] If you would like to provide feedback [...] cost to you. Content Version: 12.2 ?? 2124-2470 [employer]. Care instructions adapted under license by [facility]. If you have questions about a medical condition or this instruction, always ask your healthcare professional. [employer] disclaims any warranty or liability for your [...] meter kit. 1 each 0 12/14/2014 Insulin [place], Disposable, (BD INSULIN PEN NEEDLE UF MINI) [...] by mouth daily. ??? Blood Sugar Diagnostic (Locappy ULTRA TEST) Strip 1 each by Other [...] meter kit. 1 each 0 ??? Insulin [place], Disposable, (BD INSULIN PEN NEEDLE UF MINI) [...] PM EDT Office Visit Cardiology at [address] [phone] Milagros Hernandez MD [facility] [place] [address] Scheduled Procedures Name Priority Associated Diagnoses Date/Ti [...] 8:42 AM EDT Upper Gi Endoscopy, Biopsy (75501) 03/01/2020 8:36 AM EDT needs egd/colonoscopy for GERD and screening colo rojelio Colonoscopy, Diagnostic (94779) 03/01/2020 8:36 AM EDT needs egd/colonoscopy for GERD and screening colo rojelio Upper GI Endoscopy, Diagnostic (18576) 03/01/2020 8:36 AM EDT needs egd/colonoscopy for GERD and screening colo rojelio UPPER GI ENDOSCOPY Routine 03/01/2020 7: 47 AM EDT COLONOSCOPY Routine 03/01/2020 7:22 AM EDT documented in this encounter Results * Surgical Pathology Report (03/01/2020 8:42 AM EDT) Final Diagnosis [id number] ? Location: 4T; EA06; A The signing [...] Hill MD Verified: ??03/10/2020 ?Pathologist Performed at: ??-[facility] [place]. [place], [place], [place] SPECIMEN(S) SUBMITTED A - 28 cm, [...] cassette labeled D1. ??sns 03/10/2020 12:01 PM [facility] GI Biopsy 03/01/2020 8:42 AM EDT 03/01/2020 8:42 AM EDT GI Biopsy 03/01/2020 8:42 AM EDT 03/01/2020 8:42 AM EDT GI Biopsy 03/01/2020 8:42 AM EDT 03/01/2020 8:42 AM EDT GI Biopsy 03/01/2020 8:42 AM EDT 03/01/2020 8:42 AM EDT David Dejesus MD PATHOLOGY/CYTOLOGY [place] [address] * Specimen to Pathology (03/01/2020 8:42 AM EDT) AP Specimen 03/01/2020 8:42 AM EDT 03/01/2020 8:42 AM EDT Narrative [facility] - 03/01/2020 8:42 AM EDT Specimen requisition ordered. ??Separate Pathology report to follow David Dejesus MD PATHOLOGY/CYTOLOGY [place] [address] * Specimen to Pathology (03/01/2020 8:42 AM EDT) AP Specimen 03/01/2020 8:42 AM EDT 03/01/2020 8:42 AM EDT Narrative [facility] - 03/01/2020 8:42 AM EDT Specimen requisition ordered. ??Separate Pathology report to follow David Dejesus MD PATHOLOGY/CYTOLOGY ORDERABLES Performing Organization Address City/[facility]/ZIP Co [place] [address] * Specimen to Pathology (03/01/2020 8:42 AM EDT) AP Specimen 03/01/2020 8:42 AM EDT 03/01/2020 8:42 AM EDT Narrative [facility] - 03/01/2020 8:42 AM EDT Specimen requisition ordered. ??Separate Pathology report to follow David Dejesus MD PATHOLOGY/CYTOLOGY ORDERABLES Performing Organization Address City/[facility]/ZIP Co [place] [address] * Specimen to Pathology (03/01/2020 8:42 AM EDT) AP Specimen 03/01/2020 8:42 AM EDT 03/01/2020 8:42 AM EDT Narrative [facility] - 03/01/2020 8:42 AM EDT Specimen requisition ordered. ??Separate Pathology report to follow David Dejesus MD PATHOLOGY/CYTOLOGY ORDERABLES Performing Organization Address [facility]/ZIP Co de Phone Number [facility] [place] [address] * UPPER GI ENDOSCOPY (03/01/2020 7:47 AM EDT) UPPER GI ENDOSCOPY [facility] Endoscopy Procedure Date: 03/01/2020 7:47 AM ? Patient Name: Jennifer Irving ? Date of : 1960 ? Age: 59 ? Order #: [id number] ? Instrument Name: [id number] ? Procedure: ? Upper GI endoscopy Indications: ? Follow-up of Covington's esophagus Providers: ? David Dejesus MD, Elizabeth Celis, ? RN, Eligio Sadler RN Referring MD: ?Ana Keith: ? Monitored Anesthesia [...] * COLONOSCOPY (03/01/2020 7:22 AM EDT) COLONOSCOPY [facility] Endoscopy Procedure Date: 03/01/2020 7:22 AM ? Patient Name: Jennifer Irving ? Date of : 1960 ? Age: 59 ? Order #: [id number] ? Instrument Name: [id number] ? Procedure: ? Colonoscopy Indications: ? Screening [...] 0735 (New Bag - Prov ider: Caitlyn Corutney RN)0832 (Canceled Entry - Provider: Chiquita Felix CRNA)0919 (Anesthesia Volume Adjustment - Provider: Chiquita Felix CRNA) documented in this encounter Care Teams Commissary Clerk Relationship Specialty Start Date End Date Ana Gillespie APRN [address] [place] [address] PCP - General Family Medicine 02/03/19 documented as of this encounter
--- OUTSIDE RECORDS SUMMARY | 2024-02-05 12:58 | XMS_ITS | Encounter Summary ---
Author Organization [facility] Address [facility] [place] [address] Care Team Providers Care Breed To Wean Production Technician Name Role Phone David Blue MD Primary Care Provider [phone] Encounter Details Date Type Department Care Team (Late st Contact Info) Description 11/22/2018 11:15 AM EDT - 11/22/2018 11:45 AM EDT [place] [address] David eDjesus MD [facility] [place] [address] EGD WITH BIOPSY (WRVU 2.39) Social History [...] better as expected. Wednesday-Wednesday Same Day Endo [phone]-8p Otherwise contact [phone] and ask to speak to the tub chucker projection printer Follow-up care is a fam part of [...] meter kit. 1 each 0 12/14/2014 Insulin [place], Disposable, (BD INSULIN PEN NEEDLE UF MINI) 31 x 07/23 NeedleIndications:Di abetes mellitus type 2, uncontrolled 1 Device by [facility].(Non-Drug; Combo Route) route 3 times [...] PM EDT Office Visit Cardiology at [address] [phone] Milagros Hernandez MD [facility] [place] [address] Scheduled Procedures Name Priority Associated Diagnoses Date/Ti [...] MD PATHOLOGY/CYTOLOGY ORDERABLES [facility] [place] [address] * Surgical Pathology Report (11/22/2018 12:34 PM EDT) Final Diagnosis [id number] ? Location: 4T; EA06; A The signing pathologist has (i) examined the relevant preparation(s) for the specimen(s) and (ii) rendered or confirmed the diagnosis(es). . ?Surgical Pathology DIAGNOSIS A - At 34, biopsy: - Frarell's esophagus, negative for dysplasia. B - At 32, biopsy: - Farrell's esophagus, negative for dysplasia. C - At 30, biopsy: - Farrell's esophagus, negative for dysplasia. D - At 28, biopsy: - Farrell's esophagus, negative for dysplasia. E - At 26, biopsy: - Farrell's esophagus, negative for dysplasia. CR-PX Electronically signed by: ??Chinmay Nguyen MD Verified: ??11/23/2018 ?Pathologist Performed at: ??-[facility] [place]. [place], [place], [place] CLINICAL INFORMATION Specimen Submitted: A - [...] 2:35 PM EDT [facility] GI Biopsy 11/22/2018 12:3 4 PM EDT 11/22/2018 12:34 PM EDT GI Biopsy 11/22/2018 12:3 4 PM EDT 11/22/2018 12:34 PM EDT GI Biopsy 11/22/2018 12:3 4 PM EDT 11/22/2018 12:34 PM EDT GI Biopsy 11/22/2018 12:3 4 PM EDT 11/22/2018 12:34 PM EDT GI Biopsy 11/22/2018 12:3 4 PM EDT 11/22/2018 12:34 PM EDT David Dejesus MD PATHOLOGY/CYTOLOGY ORDERABLES [facility] [place] [address] * Specimen to Pathology (11/22/2018 12:34 PM EDT) AP Specimen 11/22/2018 12:3 4 PM EDT 11/22/2018 12:34 PM EDT Narrative [facility] - 11/22/2018 12:34 PM EDT Specimen requisition ordered. ??Separate Pathology report to follow David Dejesus MD PATHOLOGY/CYTOLOGY ORDERABLES [facility] [place] [address] * Specimen to Pathology (11/22/2018 12:34 PM EDT) AP Specimen 11/22/2018 12:3 4 PM EDT 11/22/2018 12:34 PM EDT Narrative [facility] - 11/22/2018 12:34 PM EDT Specimen requisition ordered. ??Separate Pathology report to follow David Dejesus MD PATHOLOGY/CYTOLOGY ORDERABLES Performing Organization Address [facility] [place] [address] * Specimen to Pathology (11/22/2018 12:34 PM EDT) AP Specimen 11/22/2018 12:3 4 PM EDT 11/22/2018 12:34 PM EDT Narrative [facility] - 11/22/2018 12:34 PM EDT Specimen requisition ordered. ??Separate Pathology report to follow David Dejesus MD PATHOLOGY/CYTOLOGY ORDERABLES Performing Organization Address [facility] [place] [address] * Specimen to Pathology (11/22/2018 12:34 PM EDT) AP Specimen 11/22/2018 12:3 4 PM EDT 11/22/2018 12:34 PM EDT Narrative [facility] - 11/22/2018 12:34 PM EDT Specimen requisition ordered. ??Separate Pathology report to follow David Dejesus MD PATHOLOGY/CYTOLOGY ORDERABLES Performing Organization Address [facility] [place] [address] * UPPER GI ENDOSCOPY (11/22/2018 12:12 PM EDT) UPPER GI ENDOSCOPY [facility] Endoscopy Procedure Date: 11/22/2018 12:12 PM ? Patient Name: Jennifer Irving ? Date of : 1960 ? Age: 58 ? Order #: [id number] ? Instrument Name: [id number] LOANER ? Procedure: ? Upper GI endoscopy [...] GENERAL SURGICAL ORD ERABLES Performing Organization Address City/[facility] Co de Phone Number PROVATION * (ABNORMAL) POCT Glucose (11/22/2018 10:58 AM EDT) Glucose, POC 277(H) 65 - 199 mg/dL [facility] Comment: Supplemental ranges: <140 mg/dL before meals <180 mg/dL all other times of the day Blood specimen (specimen) 11/22/2018 10:58 AM EDT 11/22/2018 10:58 AM EDT David Dejesus MD POINT OF CARE TEST ORDERABLES Performing Organization Address [facility] Co de Phone Number [facility] [place] [address] documented in this encounter Visit Diagnoses Not [...] CRNA) documented in this encounter Care Teams Breed To Wean Production Technician Relationship Specialty Start Date End Date David Blue MD [address] [place] [address] PCP - General 04/01/10 02/02/19 documented as of this encounter
--- OUTSIDE RECORDS SUMMARY | 2024-02-05 12:58 | XMS_ITS | Encounter Summary ---
Author Organization [facility] Address [facility] [place] [address] Care Team Providers Care Molder Closed Molds Name Role Phone Ana Gillespie VAUGHN Primary Care Provider [phone] Reason for Referral * Consultation (PJ) - Closed Specialty Diagnoses / Procedures Referred By Contac t Referred To Contact Gastroenterology Diagnoses Iron deficiency anemia due to chronic blood loss Procedures needs egd/colonoscopy for GERD and screening colo pj David Dejesus MD [facility] [place] [address] [facility] Endoscopy [address] [place] [address] Referral ID Status Reason Start Date Expiration Date V isits Requested Visits Authorized [id number] Closed Consult, Test & Treat 12/25/2019 12/24/2020 1 1 Encounter Details Date Type Department Care Team (Late st Contact Info) Description 12/25/2019 Orders Only [place] [address] David Dejesus MD [facility] [place] [address] Iron deficiency anemia due to chronic blood [...] PM EDT Office Visit Cardiology at [address] [address] Milagros Hernandez MD [facility] [place] [address] Scheduled Procedures Name Priority Associated Diagnoses Date/Ti [...] (chronic) documented in this encounter Care Teams Molder Closed Molds Relationship Specialty Start Date End Date Ana Gillespie APRN [address] [place] [address] PCP - General Family Medicine 02/03/19 documented as of this encounter
--- OUTSIDE RECORDS SUMMARY | 2024-02-05 12:58 | XMS_ITS | Encounter Summary ---
Author Organization [facility] Address [facility] [place] [address] Care Team Providers Care Railroad Crane Operator Name Role Phone Ana Gillespie VAUGHN Primary Care Provider [phone] Reason for Referral * Consultation (Routine) - Duplicate Referral Specialty Diagnoses / Procedures Referred By Esperanza rodríguez Referred To Contact Gastroenterology Diagnoses Functional diarrhea David Dejesus MD [facility] [place] [address] [facility] Endoscopy [address] [place] [phone] Referral ID Status Reason Start Date Expiration Date Visits Requested Visits Authorized [id number] Duplicate Referral Consult, Test & Treat 10/16/2019 10/15/2020 1 1 Encounter Details Date Type Department Care Team ([facility] Contact Info) Description 10/16/2019 Orders [place] [address] David Dejesus MD [facility] [place] [address] Functional diarrhea Social History Tobacco Use Types [...] PM EDT Office Visit Cardiology at [address] [address] Milagros Hernandez MD [facility] [place] [address] Scheduled Procedures Name Priority Associated Diagnoses Date/Ti me EGD, UPPER GI ENDOSCOPY (WRV U 2.09) Peptic stricture of esophagus Scheduled Referrals Name Type Priority Associated Diagnoses Order Schedule Referral to Gastroenterology Outpatient Referral Routine Functional diarrhea Ordered: 10/16/2019 documented as of this encounter Visit Diagnoses Diagnosis Functional diarrhea documented in this encounter Care Teams Railroad Crane Operator Relationship Specialty Start Date End Date Ana Gillespie APRN [address] [place] [address] PCP - General Family Medicine 02/03/19 documented as of this encounter
--- OUTSIDE RECORDS SUMMARY | 2024-02-05 12:58 | XMS_ITS | Encounter Summary ---
[place] [address] Care Team Providers Care Data Warehousing Specialist Name Role Phone Ana Gillespie VAUGHN Primary Care Provider [phone] Reason for Visit * Reason Onset Date Comments Prior Authorization 09/18/2020 Encounter Details Date Type Department Care Team (Late st Contact Info) Description 09/18/2020 Telephone [place] [address] Francoise Vides CMA GASTROENTEROLOGY DEPT Prior Authorization [...] Prior Authorization 4L Gastroenterology / [place] [address] ?? Subscriber Insurance: [place] Medicaid ?? Phone: . Fax: ? Physician: David Dejesus ? Return ?? Pharmacy: [facility] ? Medication Requested: pantoprazole ?? Strength: 40 mg Frequency: BID ?? Disp.: 180 Refills: 3 ?? Currently taking: n Diagnosis for this medication: Farrell's w/ dysplasia, and GERD ?? ICD-10 code: ?? Prior medications trialed in this patient: Pantoprazole QD, esomperazole, and omeprazole,tums,zantac ? Medication: Outcome/Adverse Reactions: treatment failure ?? Decision: approved Start:09/18/20 End: 09/18/21 ?? Tracking number/Case number/Reference number: [id number] ? documented in this encounter Plan of Treatment Upcoming Encounters Date Type Department Care Team (Late st Contact Info) Description 03/10/2024 4:00 PM EDT Office Visit Cardiology at [address] [address] Milagros Hernandez MD [facility] [place] [address] Scheduled Procedures Name Priority Associated Diagnoses Date/Ti me EGD, UPPER GI ENDOSCOPY (WRV U 2.09) Peptic stricture of esophagus documented as of this encounter Visit Diagnoses Not on filedocumented in this encounter Care Teams Data Warehousing Specialist Relationship Specialty Start Date End Date Ana Gillespie APRN [address] [place] [address] PCP - General Family Medicine 02/03/19 documented as of this encounter
--- OUTSIDE RECORDS SUMMARY | 2024-02-05 12:58 | XMS_ITS | Encounter Summary ---
Author Organization [facility] Address [facility] [place] [address] Care Team Providers Care Hoister Name Role Phone Ana Gillespie APRN Primary Care Provider Encounter Details Date Type Department Care Team (Late st Contact Info) Description 03/01/2020 8:32 AM EDT Anesthesia [place] [phone] Ute Novak MD [facility] [place] [address] Anesthesia Record Procedure Summary Procedure Name Responsible [...] 0723; metacarpal vein (top of hand), right; tajt-otj-tthkmz catheter system; 20 gauge; gaurav rn; distraction, [...] Procedure Summary Date: 03/01/20 Room / Location: [facility] ENDO 2 / [facility] ENDOSCOPY Anesthesia Start: 831 Anesthesia Stop: 923 Procedures: EGD, UPPER GI ENDOSCOPY (N/A Trunk) COLONOSCOPY, DIAGNOSTIC (N/A Trunk) UPPER GASTROINTESTINAL ENDOSCOPY,WITH BIOPSY SINGLE OR MULTIPLE (WRVU 2.49) (N/A Esophagus) Diagnosis: (needs egd/colonoscopy for GERD and screening colo rojelio) Surgeon: David Dejesus MD Responsible Provider: Ute Novak MD Anesthesia Type: MAC ASA Status: 3 All Anesthesia Providers: Anesthesiologist: Ute Novak MD BUNCHER OPERATOR: Chiquita Felix CRNA Vitals Value Taken Time BP 170/68 03/01/20 1001 Temp Pulse Resp 16 03/01/20 1000 SpO2 99 % 03/01/20 1008 Pain Level 0 03/01/20 1000 Vitals shown include unvalidated device data. Patient Location: PACU/[facility] Level of Consciousness: Awake and [...] BX performed by David Dejesus MD at [facility] ENDOSCOPY ??? PRO UPPER GI ENDOSCOPY, BIOPSY N/A 04/03/2014 UPPER GASTROINTESTINAL ENDOSCOPY,WITH BIOPSY SINGLE OR MULTIPLE performed by David Dejesus MDat [facility] ENDOSCOPY ??? PRO UPPER GI ENDOSCOPY, BIOPSY N/A 03/20/2016 EGD WITH BIOPSY performed by David Dejesus MD at [facility] ENDOSCOPY ??? PRO UPPER GI ENDOSCOPY, BIOPSY N/A 11/22/2018 EGD WITH BIOPSY (WRVU 2.49) performed by David Dejesus MD at [facility] ENDOSCOPY ??? PRO UPPER GI ENDOSCOPY, DIAGNOSTIC N/A 04/03/2014 EGD, UPPER GI ENDOSCOPY performed by David Dejesus MD at [facility] ENDOSCOPY Social History Tobacco Use [...] risks discussed with patient. Plan discussed with BUNCHER OPERATOR and attending. PAT Clinic Note documented in this encounter Plan of Treatment Upcoming Encounters Date Type Department Care Team (Late st Contact Info) Description 03/10/2024 4:00 PM EDT Office Visit Cardiology at [address] [address] Milagros Hernandez MD [facility] [place] [place] [address] Scheduled Procedures Name Priority Associated Diagnoses Date/Ti [...] mL/hr documented in this encounter Care Teams Hoister Relationship Specialty Start Date End Date Ana Gillespie APRN [address] [place] [address] PCP - General Family Medicine 02/03/19 documented as of this encounter
--- OUTSIDE RECORDS SUMMARY | 2024-02-05 12:58 | XMS_ITS | Encounter Summary ---
Author Organization [facility] Address [facility] [place] [address] Care Team Providers Care Gas Refrigerator Servicer Name Role Phone Ana Gillespie VAUGHN Primary Care Provider [phone] Encounter Details Date Type Department Care Team (Late st Contact Info) Description 09/23/2021 12:30 PM EDT - 09/23/2021 1:00 PM EDT [place] [phone] David Dejesus MD [facility] [place] [address] EGD WITH BIOPSY (WRVU 2.39) Social History [...] the day after the procedure, use an eisi-nyg-ksazgfs spray to numb your throat. Sucking on [...] occurs, please contact your Doctor. Please call [phone] before 8pm Mon-Fri with problems, questions or concerns. If you call after 8pm or on weekends, call the Hospital at [phone] and ask to speak to the Broomcorn Scraper salesperson corsets and the monogram machine operator will contact that person for [...] any problems. Where can you learn more? [facility] View your After Visit Summary and more online at [email or web address] If you would like to provide feedback about your hospital experience, please call the Office of Patient and Family Relations at . If you have received this After Visit Summary in error, please immediately return it in person to the department, or notify the [facility] Privacy Office by calling toll free at between the hours of 8AM and 5PM to arrange for our retrieval of the documents at no cost to you. Content Version: 12.2 ?? [id number] [employer]. Care instructions adapted under license by [facility]. If you have questions about a medical condition or this instruction, always ask your healthcare professional. [employer] disclaims any warranty or liability for your [...] meter kit. 1 each 0 12/14/2014 Insulin [place], Disposable, (BD INSULIN PEN NEEDLE UF MINI) [...] 2 times daily. ??? Blood Sugar Diagnostic (PoweredTOUCH ULTRA TEST) Strip 1 each by Other [...] for dosing. 15 mL 11 ??? Insulin [place], Disposable, (BD INSULIN PEN NEEDLE UF MINI) 31 x 3/16 Needle 1 Device by [facility].(Non-Drug; Combo Route) route 3 times daily as needed. 100 each 11 ??? lithium 300 mg Capsule Take 1,000 mg by mouth daily. ??? PARoxetine (PAXIL) 40 mg Tablet Take 20 mg by mouth every morning. ??? esomeprazole (NEXIUM) 40 mg Capsule, Delayed Release(E.C.) Take 1 capsule by mouth 2 times daily. 180 capsule 3 ??? Blood-Glucose Meter (PoweredTOUCH ULTRA2) Kit by Other route. 1 = [...] PM EDT Office Visit Cardiology at [address] [address] Milagros Hernandez MD [facility] [place] [address] Scheduled Procedures Name Priority Associated Diagnoses Date/Ti me EGD, UPPER GI ENDOSCOPY (WRV U 2.09) Peptic stricture of esophagus documented as of this encounter Procedures Procedure Name Priority Date/Time Associated Diagnosis Comments SURGICAL PATHOLOGY REPORT Routine 09/23/2021 12:24 PM EDT SPECIMEN TO PATHOLOGY Routine 09/23/2021 12:24 PM EDT SPECIMEN TO PATHOLOGY Routine 09/23/2021 12:24 PM EDT Upper Gi Endoscopy, Biopsy ([id number]) 09/23/2021 12:02 PM EDT Gastroesophageal reflux disease with esophagitis without hemorrhage UPPER GI ENDOSCOPY Routine 09/23/2021 11 :52 AM EDT documented in this encounter Results * Surgical Pathology Report (09/23/2021 12:24 PM EDT) Final Diagnosis ? Location: 4; [facility]; A The signing pathologist has (i) [...] Jeniffer Verified: ??09/26/2021 19:44 ??Pathologist Performed at: ??-[facility] Dept. of Pathology, [place], [place] SPECIMEN(S) SUBMITTED A - Distal esophagus [...] labeled B1-B2. ??shb 09/26/2021 7:44 PM EDT [facility] GI Biopsy 09/23/2021 12:2 4 PM EDT 09/23/2021 12:24 PM EDT GI Biopsy 09/23/2021 12:2 4 PM EDT 09/23/2021 12:24 PM EDT David Dejesus MD PATHOLOGY/CYTOLOGY ORDERABLES Performing Organization Address City/[facility]/ZIP Co de Phone Number [facility] [place] [address] * Specimen to Pathology (09/23/2021 12:24 PM EDT) AP Specimen 09/23/2021 12:2 4 PM EDT 09/23/2021 12:24 PM EDT Narrative [facility] - 09/23/2021 12:24 PM EDT Specimen requisition ordered. ??Separate Pathology report to follow David Dejesus MD PATHOLOGY/CYTOLOGY ORDERABLES Performing Organization Address City/[facility]/ZIP Co de Phone Number [facility] [place] [address] * Specimen to Pathology (09/23/2021 12:24 PM EDT) AP Specimen 09/23/2021 12:2 4 PM EDT 09/23/2021 12:24 PM EDT Narrative [facility] - 09/23/2021 12:24 PM EDT Specimen requisition ordered. ??Separate Pathology report to follow David Dejesus MD PATHOLOGY/CYTOLOGY ORDERABLES Performing Organization Address City/[facility]/ZIP Co de Phone Number [facility] [place] [address] * UPPER GI ENDOSCOPY (09/23/2021 11:52 AM EDT) Pathologist [facility] UPPER GI ENDOSCOPY [facility] Endoscopy Procedure Date: 09/23/2021 11:52 AM ? Patient Name: Jennifer Irving ? Date of : 1960 ? Age: 61 ? Order #: [id number] ? Instrument Name: [id number] ? Procedure: ? Upper GI endoscopy Indications: ? Heartburn Providers: ? David Dejesus MD, Neej J. ? [address], ? Theodora Farrell, Cardiology Clinical Consultant Referring MD: ?Ana Keith: ? Monitored Anesthesia [...] 09/23/2021 11:5 2 AM EDT Ana Gillespie [employer] [facility] SURGICAL ORD ERABLES [employer] documented [...] (CANCELED) 100 mL/hr, Intravenous, CONTINUOUS, Starting on 09/23/21 at 1130, Until 09/23/21 at 1319, Endoscopy (Day of Procedure) 1132 (New Bag - Prov ider: Parris Quinn RN) documented in this encounter Care Teams Gas Refrigerator Servicer Relationship Specialty Start Date End Date Ana Gillespie APRN [address] [place] [address] PCP - General Family Medicine 02/03/19 documented as of this encounter
--- OUTSIDE RECORDS SUMMARY | 2024-02-05 12:58 | XMS_ITS | Encounter Summary ---
Author Organization [facility] [place] [address] Care Team Providers Care Gasket Winder Name Role Phone Ana Gillespie APRN Primary Care Provider [phone] Reason for Visit * Reason Onset Date Comments Medication Refill 09/17/2020 Encounter Details Date Type Department Care Team (Late st Contact Info) Description 09/17/2020 Refill [place] [phone] David Dejesus MD [facility] [place] [address] Social History Tobacco Use Types Packs/Day Years [...] PM EDT Office Visit Cardiology at [address] [phone] Milagros Hernadnez MD [facility] [place] [address] Scheduled Procedures Name Priority Associated Diagnoses Date/Ti me EGD, UPPER GI ENDOSCOPY (WRV U 2.09) Peptic stricture of esophagus documented as of this encounter Visit Diagnoses Not on filedocumented in this encounter Care Teams Gasket Winder Relationship Specialty Start Date End Date Ana Gillespie APRN [address] [place] [address] PCP - General Family Medicine 02/03/19 documented as of this encounter
--- OUTSIDE RECORDS SUMMARY | 2024-02-05 12:58 | XMS_ITS | Encounter Summary ---
Author Organization [facility] Address [facility] [place] [address] Care Team Providers Care Ase Certified Technician Name Role Phone Ana Gillespie APRN Primary Care Provider [phone] Encounter Details Date Type Department Care Team (Late st Contact Info) Description 11/27/2021 Telephone [place] [phone] Alla Mejia Social History Tobacco Use Types [...] PM EDT Office Visit Cardiology at [address] [phone] Milagros Hernandez MD [facility] [place] [address] Scheduled Procedures Name Priority Associated Diagnoses Date/Ti me EGD, UPPER GI ENDOSCOPY (WRV U 2.09) Peptic stricture of esophagus documented as of this encounter Visit Diagnoses Not on filedocumented in this encounter Care Teams Ase Certified Technician Relationship Specialty Start Date End Date Ana Gillespie APRN [address] [place] [address] PCP - General Family Medicine 02/03/19 documented as of this encounter
--- OUTSIDE RECORDS SUMMARY | 2024-02-05 12:58 | XMS_ITS | Encounter Summary ---
Author Organization [facility] Address [facility] [place] [address] Care Team Providers Care Herb Doctor Name Role Phone Ana Gillespie APRN Primary Care Provider [phone] Encounter Details Date Type Department Care Team (Late st Contact Info) Description 11/25/2021 Telephone [place] [phone] Alla Mejia Social History Tobacco Use Types [...] PM EDT Office Visit Cardiology at [address] [phone] Milagros Hernandez MD [facility] [place] [address] Scheduled Procedures Name Priority Associated Diagnoses Date/Ti me EGD, UPPER GI ENDOSCOPY (WRV U 2.09) Peptic stricture of esophagus documented as of this encounter Visit Diagnoses Not on filedocumented in this encounter Care Teams Herb Doctor Relationship Specialty Start Date End Date Ana Gillespie APRN [address] [place] [address] PCP - General Family Medicine 02/03/19 documented as of this encounter
--- OUTSIDE RECORDS SUMMARY | 2024-02-05 12:58 | XMS_ITS | Encounter Summary ---
Author Organization [facility] [place] [address] Care Team Providers Care Results Technician Name Role Phone Ana Gillespie VAUGHN Primary Care Provider [phone] Encounter Details Date Type Department Care Team (Late Contact Info) Description 10/21/2021 Telephone [place] [address] Chiquita James, RN Social History [...] PM EDT Office Visit Cardiology at [address] [address] Milagros Hernandez MD [facility] [place] [address] Scheduled Procedures Name Priority Associated Diagnoses Date/Ti me EGD, UPPER GI ENDOSCOPY (WRV U 2.09) Peptic stricture of esophagus documented as of this encounter Visit Diagnoses Not on filedocumented in this encounter Care Teams Results Technician Relationship Specialty Start Date End Date Ana Gillespie APRN [address] [place] [address] PCP - General Family Medicine 02/03/19 documented as of this encounter
--- OUTSIDE RECORDS SUMMARY | 2024-02-05 12:58 | XMS_ITS | Encounter Summary ---
Author Organization [facility] Address [facility] [place] [address] Care Team Providers Care Finance Broker Name Role Phone Ana Gillespie PUBLIC HEALTH AIDE Primary Care Provider [phone] Encounter Details Date Type Department Care Team (Late st Contact Info) Description 09/16/2020 Orders Only [place] [phone] David Dejesus MD [facility] [place] [address] Social History Tobacco Use Types Packs/Day Years [...] PM EDT Office Visit Cardiology at [address] [phone] Milagros Hernandez MD [facility] [place] [address] Scheduled Procedures Name Priority Associated Diagnoses Date/Ti me EGD, UPPER GI ENDOSCOPY (WRV U 2.09) Peptic stricture of esophagus documented as of this encounter Visit Diagnoses Not on filedocumented in this encounter Care Teams Finance Broker Relationship Specialty Start Date End Date Ana Gillespie APRN [address] [place] [address] PCP - General Family Medicine 02/03/19 documented as of this encounter
--- OUTSIDE RECORDS SUMMARY | 2024-02-05 12:58 | XMS_ITS | Encounter Summary ---
[place] [address] Care Team Providers Care Dough Panner Name Role Phone Ana Gillespie VAUGHN Primary Care Provider [phone] Encounter Details Date Type Department Care Team (Late st Contact Info) Description 11/20/2021 Telephone [place] [address] Chiquita James, RN Social History [...] states they have called multiple times to [phone], and been on hold upwards of [phone] [...] 4:00 PM EDT Office Visit Cardiology at [address] [address] Milagros Hernandez MD [facility] [place] [address] Scheduled Procedures Name Priority Associated Diagnoses Date/Ti me EGD, UPPER GI ENDOSCOPY (WRV U 2.09) Peptic stricture of esophagus documented as of this encounter Visit Diagnoses Not on filedocumented in this encounter Care Teams Dough Panner Relationship Specialty Start Date End Date Ana Gillespie APRN [address] [place] [address] PCP - General Family Medicine 02/03/19 documented as of this encounter
--- OUTSIDE RECORDS SUMMARY | 2024-02-05 12:58 | XMS_ITS | Encounter Summary ---
Author Organization [facility] [place] [address] Care Team Providers Care Union Organizer Name Role Phone Ana Gillespie APRN Primary Care Provider [phone] Encounter Details Date Type Department Care Team (Late st Contact Info) Description 09/23/2021 12:02 PM EDT Anesthesia Event [place] [address] Keyana Short MD [facility] [address] [place] [address] Kyaw Yusuf CRNA [facility] [place] [address] Anesthesia Record Procedure Summary Procedure Name Responsible [...] 1131; median cubital vein (antecubital fossa), right; zwwd-ygf-fkwztc catheter system; 20 gauge; Lilliana HWANG; tolerated [...] Procedure Summary Date: 09/23/21 Room / Location: [facility] / [facility] Anesthesia Start: 1202 Anesthesia Stop: 1224 Procedure: EGD WITH BIOPSY (WRVU 2.49) (N/A Trunk) Diagnosis: Gastroesophageal reflux disease with esophagitis without hemorrhage (esophagitis - please schedule in mid August) Surgeons: David Dejesus MD Responsible Provider: Keyana Short MD Anesthesia Type: MAC ASA Status: 3 All Anesthesia Providers: Anesthesiologist: Keyana Short MD CDL TEAM TRUCK DRIVER: Kyaw Yusuf CRNA Vitals Value Taken Time BP 139/82 09/23/21 1310 Temp Pulse Resp 18 09/23/21 1310 SpO2 100 % 09/23/21 1315 Pain Level 0 09/23/21 1310 Vitals shown include unvalidated device data. Patient Location: PACU[facility]LOCATED WITHIN [facility] Level of Consciousness: Awake and [...] Dejesus MD at [facility] ??? PRO COLONOSCOPY, DIAGNOSTIC N/A 03/01/2020 COLONOSCOPY, DIAGNOSTIC performed by David Dejesus MD at [facility] ??? PRO UPPER GI ENDOSCOPY, BIOPSY N/A 04/03/2014 UPPER GASTROINTESTINAL ENDOSCOPY,WITH BIOPSY SINGLE OR MULTIPLE performed by David Dejesus MDat [facility] ??? PRO UPPER GI ENDOSCOPY, BIOPSY N/A 03/20/2016 EGD WITH BIOPSY performed by David Dejesus MD at [facility] ??? PRO UPPER GI ENDOSCOPY, BIOPSY N/A 11/22/2018 EGD WITH BIOPSY (WRVU 2.49) performed by David Dejesus MD at [facility] ??? PRO UPPER GI ENDOSCOPY, BIOPSY N/A 03/01/2020 UPPER GASTROINTESTINAL ENDOSCOPY,WITH BIOPSY SINGLE OR MULTIPLE (WRVU 2.49) performed by David Dejesus MD at [facility] ??? PRO UPPER GI ENDOSCOPY, DIAGNOSTIC N/A 04/03/2014 EGD, UPPER GI ENDOSCOPY performed by David Dejesus MD at [facility] ??? PRO UPPER GI ENDOSCOPY, DIAGNOSTIC N/A 03/01/2020 EGD, UPPER GI ENDOSCOPY performed by David Dejesus MD at [facility] Social History Tobacco Use ??? Smoking [...] risks discussed with patient. Plan discussed with CDL TEAM TRUCK DRIVER. Anesthesia Screening documented in this encounter Plan of Treatment Upcoming Encounters Date Type Department Care Team (Late st Contact Info) Description 03/10/2024 4:00 PM EDT Office Visit Cardiology at [address] [address] Milagros Hernandez MD [facility] [place] [address] Scheduled Procedures Name Priority Associated Diagnoses Date/Ti [...] mg documented in this encounter Care Teams Union Organizer Relationship Specialty Start Date End Date Ana Gillespie APRN [address] [place] [address] PCP - General Family Medicine 02/03/19 documented as of this encounter
--- OUTSIDE RECORDS SUMMARY | 2024-02-05 12:58 | XMS_ITS | Encounter Summary ---
Author Organization [facility] Address [facility] [place] [address] Care Team Providers Care Lithograph Press Operator Tinware Name Role Phone Ana Gillespie VAUGHN Primary Care Provider [phone] Encounter Details Date Type Department Care Team (Late st Contact Info) Description 03/01/2020 8:30 AM EDT - 03/01/2020 9:30 AM EDT [place] [address] David Dejesus MD [facility] [place] [address] EGD, UPPER GI ENDOSCOPY (WRVU 2.09) Social [...] the day after the procedure, use an ioej-cxs-wpzvqjv spray to numb your throat. Sucking on [...] occurs, please contact your Doctor. Please call [phone] before 8pm Mon-Fri with problems, questions or concerns. If you call after 8pm or on weekends, call the Hospital at [phone] and ask to speak to the Dry Curer on site manager and the curb machine operator will contact that person for you. When should you call for help? Call 221 anytime you think you may need emergency [...] any problems. Where can you learn more? [facility] View your After Visit Summary and more online at [email or web address] If you would like to provide feedback about your hospital experience, please call the Office of Patient and Family Relations at . If you have received this After Visit Summary in error, please immediately return it in person to the department, or notify the [facility] Privacy Office by calling toll free at between the hours of 8AM and 5PM to arrange for our retrieval of the documents at no cost to you. Content Version: 12.2 ?? [id number] [employer]. Care instructions adapted under license by [facility]. If you have questions about a medical condition or this instruction, always ask your healthcare professional. [employer] disclaims any warranty or liability for your [...] occurs, please contact your Doctor. Please call [phone] before 8pm Mon-Fri with problems, questions or concerns. If you call after 8pm or on weekends, call the Hospital at [phone] and ask to speak to the Dry Curer on site manager and the curb machine operator will contact that person for [...] any problems. Where can you learn more? [facility] View your After Visit Summary and more online at [email or web address] If you would like to [...] cost to you. Content Version: 12.2 ?? [id number] [employer]. Care instructions adapted under license by [facility]. If you have questions about a medical condition or this instruction, always ask your healthcare professional. [employer] disclaims any warranty or liability for your [...] meter kit. 1 each 0 12/14/2014 Insulin [place], Disposable, (BD INSULIN PEN NEEDLE UF MINI) [...] Birthdate: 1960 Admit date: 03/01/2020 Attending Physician: Dvaid Dejesus MD PROBLEM LIST Patient Active Problem [...] meter kit. 1 each 0 ??? Insulin [place], Disposable, (BD INSULIN PEN NEEDLE UF MINI) [...] PM EDT Office Visit Cardiology at [address] [address] Milagros Hernandez MD [facility] [place] [address] Scheduled Procedures Name Priority Associated Diagnoses Date/Ti [...] 8:42 AM EDT Upper Gi Endoscopy, Biopsy (37918) 03/01/2020 8:36 AM EDT needs egd/colonoscopy for GERD and screening colo rojelio Colonoscopy, Diagnostic (34760) 03/01/2020 8:36 AM EDT needs egd/colonoscopy for GERD and screening colo rojelio Upper GI Endoscopy, Diagnostic ([id number]) 03/01/2020 8:36 AM EDT needs egd/colonoscopy for GERD and screening colo rojelio UPPER GI ENDOSCOPY Routine 03/01/2020 7: 47 AM EDT COLONOSCOPY Routine 03/01/2020 7:22 AM EDT documented in this encounter Results * Surgical Pathology Report (03/01/2020 8:42 AM EDT) Final Diagnosis [id number] ? Location: 4T; EA06; A The signing [...] ??[facility] [place], [place], [place] SPECIMEN(S) SUBMITTED A - 28 cm, [...] cassette labeled D1. ??sns 03/10/2020 12:01 PM [facility] GI Biopsy 03/01/2020 8:42 AM EDT 03/01/2020 8:42 AM EDT GI Biopsy 03/01/2020 8:42 AM EDT 03/01/2020 8:42 AM EDT GI Biopsy 03/01/2020 8:42 AM EDT 03/01/2020 8:42 AM EDT GI Biopsy 03/01/2020 8:42 AM EDT 03/01/2020 8:42 AM EDT David Dejesus MD PATHOLOGY/[place] [address] * Specimen to Pathology (03/01/2020 8:42 AM EDT) AP Specimen 03/01/2020 8:42 AM EDT 03/01/2020 8:42 AM EDT Narrative [facility] - 03/01/2020 8:42 AM EDT Specimen requisition ordered. ??Separate Pathology report to follow David Dejesus MD PATHOLOGY/CYTOLOGY ORDERABLES Performing Organization Address City/[facility]/[place] [address] * Specimen to Pathology (03/01/2020 8:42 AM EDT) AP Specimen 03/01/2020 8:42 AM EDT 03/01/2020 8:42 AM EDT Narrative [facility] - 03/01/2020 8:42 AM EDT Specimen requisition ordered. ??Separate Pathology report to follow David Dejesus MD PATHOLOGY/CYTOLOGY ORDERABLES Performing Organization Address City/[facility]/[place] [address] * Specimen to Pathology (03/01/2020 8:42 AM EDT) AP Specimen 03/01/2020 8:42 AM EDT 03/01/2020 8:42 AM EDT Narrative [facility] - 03/01/2020 8:42 AM EDT Specimen requisition ordered. ??Separate Pathology report to follow David Dejesus MD PATHOLOGY/CYTOLOGY ORDERABLES Performing Organization Address City/[facility]/[place] [address] * Specimen to Pathology (03/01/2020 8:42 AM EDT) AP Specimen 03/01/2020 8:42 AM EDT 03/01/2020 8:42 AM EDT Narrative [facility] - 03/01/2020 8:42 AM EDT Specimen requisition ordered. ??Separate Pathology report to follow David Dejesus MD PATHOLOGY/CYTOLOGY ORDERABLES Performing Organization Address [facility]/State/ZIP Co de Phone Number [facility] [place] [place] [address] * UPPER GI ENDOSCOPY (03/01/2020 7:47 AM EDT) UPPER GI ENDOSCOPY [facility] Endoscopy Procedure Date: 03/01/2020 7:47 AM ? Patient Name: Jennifer Irving ? N: [id number] ? Date of : 1960 ? Age: 59 ? Order #: [id number] ? Instrument Name: [id number] ? Procedure: ? Upper GI endoscopy Indications: [...] 1960 ? Age: 59 ? Order #: [id number] ? Instrument Name: [id number] ? Procedure: ? Colonoscopy Indications: ? Screening [...] CRNA) documented in this encounter Care Teams Lithograph Press Operator Tinware Relationship Specialty Start Date End Date Ana Gillespie APRN [address] [place] [address] PCP - General Family Medicine 02/03/19 documented as of this encounter
--- OUTSIDE RECORDS SUMMARY | 2024-02-05 12:58 | XMS_ITS | Encounter Summary ---
Author Organization [facility] [place] [address] Care Team Providers Care It Business Analyst Name Role Phone Ana Gillespie VAUGHN Primary Care Provider [phone] Reason for Visit * Reason Onset Date Comments Appointment 11/28/2020 Encounter Details Date Type Department Care Team (Late st Contact Info) Description 11/28/2020 Telephone [place] [phone] Evelin Novak I Appointment Social History Tobacco [...] PM EDT Office Visit Cardiology at [address] [phone] Milagros Hernandez MD [facility] [place] [address] Scheduled Procedures Name Priority Associated Diagnoses Date/Ti me EGD, UPPER GI ENDOSCOPY (WRV U 2.09) Peptic stricture of esophagus documented as of this encounter Visit Diagnoses Not on filedocumented in this encounter Care Teams It Business Analyst Relationship Specialty Start Date End Date Ana Gillespie APRN [address] [place] [address] PCP - General Family Medicine 02/03/19 documented as of this encounter
--- OUTSIDE RECORDS SUMMARY | 2024-02-05 12:58 | XMS_ITS | Encounter Summary ---
Author Organization [facility] Address [facility] [place] [address] Care Team Providers Care Field Director Name Role Phone David Blue MD Primary Care Provider [phone] Encounter Details Date Type Department Care Team (Late st Contact Info) Description 11/22/2018 12:20 PM EDT Anesthesia [place] [address] Keyana Short MD [facility] [place] [address] Alexandrea Wang CRNA [facility] [place] [address] Anesthesia Record Procedure Summary Procedure Name Responsible Anesthesiologist Anesthesia Start Time Anesthesia Stop Time EGD WITH BIOPSY (WRVU 2.39) (Trunk) Keyana Short MD 11/22/18 1220 11/22/18 1253 Events Date Time Event Comment 11/22/2018 1218 1220 AN Verify 1220 Start 1220 An Start Data 1223 Break/Relief In [facility] A [facility], [employer] 1225 An Induction 1227 Anesthesia Ready 1228 [...] basilic vein (medial side of arm), right; gfbj-vbl-ccrhvj catheter system; 20 gauge; Gertrudis Cintron RN; [...] Procedure Summary Date: 11/22/18 Room / Location: [facility] / [facility] Anesthesia Start: 1220 Anesthesia Stop: 1253 Procedure: EGD WITH BIOPSY (WRVU 2.49) (N/A Trunk) Diagnosis: (Farrell's esophagus) (proclear) Surgeon: David Dejesus MD Responsible Provider: Keyana Short MD Anesthesia Type: MAC ASA Status: 2 All Anesthesia Providers: Anesthesiologist: Keyana Short MD [employer]: Alexandrea Wang CRNA Vitals Value Taken Time BP 135/62 11/22/2018 1:20 PM Temp Pulse Resp SpO2 95 % 11/22/2018 1:30 PM Pain Level 0 11/22/2018 1:30 PM Patient Location: PACU/[facility] Level of Consciousness: Awake and [...] BX performed by David Dejesus MD at [facility] ??? PRO UPPER GI ENDOSCOPY, BIOPSY N/A 04/03/2014 UPPER GASTROINTESTINAL ENDOSCOPY,WITH BIOPSY SINGLE OR MULTIPLE performed by David Dejesus MDat [facility] ??? PRO UPPER GI ENDOSCOPY, BIOPSY N/A 03/20/2016 EGD WITH BIOPSY performed by David Dejesus MD at [facility] ??? PRO UPPER GI ENDOSCOPY, DIAGNOSTIC N/A 04/03/2014 EGD, UPPER GI ENDOSCOPY performed by David Dejesus MD at [facility] Social History Tobacco Use [...] PM EDT Office Visit Cardiology at [address] [address] Milagros Hernandez MD [facility] [place] [address] Scheduled Procedures Name Priority Associated Diagnoses Date/Ti [...] PRN, Starting on Wed11/22/18 at 1225, Until Tu11/22/18 at 1253, Anesthesia Intra-op Given 11/22/2018 12:25 PM EDT 60 mg propofol (DIPRIVAN) infusion CONTINUOUS PRN, Starting on Wed11/22/18 at 1225, Until Tu11/22/18 at 1253, Anesthesia Intra-op, Routine Rate/Dose Change 11/22/2018 12:35 PM EDT 175 mcg/kg/min 84.3 mL/hr New Bag 11/22/2018 12:25 PM EDT 200 mcg/kg/min 96.4 mL/ hr documented in this encounter Care Teams Field Director Relationship Specialty Start Date End Date David Blue MD [address] [place] [address] PCP - General 04/01/10 02/02/19 documented as of this encounter
--- OUTSIDE RECORDS SUMMARY | 2024-02-05 12:58 | XMS_ITS | Encounter Summary ---
Author Organization [facility] Address [facility] [place] [address] Care Team Providers Care Firer Electric Locomotive Name Role Phone Ana Gillespie TANK HOOP BENDER Primary Care Provider [phone] Encounter Details Date Type Department Care Team (Late st Contact Info) Description 08/04/2021 Orders Only [place] [phone] David Dejesus MD [facility] [place] [address] Social History Tobacco Use Types Packs/Day Years [...] PM EDT Office Visit Cardiology at [address] [phone] Milagros Hernandez MD [facility] [place] [address] Scheduled Procedures Name Priority Associated Diagnoses Date/Ti me EGD, UPPER GI ENDOSCOPY (WRV U 2.09) Peptic stricture of esophagus documented as of this encounter Visit Diagnoses Not on filedocumented in this encounter Care Teams Firer Electric Locomotive Relationship Specialty Start Date End Date Ana Gillespie APRN [address] [place] [address] PCP - General Family Medicine 02/03/19 documented as of this encounter
--- OUTSIDE RECORDS SUMMARY | 2024-02-05 12:58 | XMS_ITS | Encounter Summary ---
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 She needs this to be sent to the [place] [address] Jury Administration for medical issue. Forwarded for review documented in this encounter Plan of Treatment Upcoming Encounters Date Type Department Care Team (Late st Contact Info) Description 03/10/2024 4:00 PM EDT Office Visit Cardiology at [address] [phone] Milagros Hernandez MD [facility] [place] [address] Scheduled Procedures Name Priority Associated Diagnoses Date/Ti me EGD, UPPER GI ENDOSCOPY (WRV U 2.09) Peptic stricture of esophagus documented as of this encounter Visit Diagnoses Not on filedocumented in this encounter Care Teams Line Assembler Aircraft Relationship Specialty Start Date End Date Ana Gillespie APRN [address] [place] [address] PCP - General Family Medicine 02/03/19 documented as of this encounter
--- OUTSIDE RECORDS SUMMARY | 2024-02-05 12:58 | XMS_ITS | Encounter Summary ---
Author Organization [facility] [place] [address] Care Team Providers Care Pharmacy Technician Name Role Phone Ana Gillespie APRN Primary Care Provider Reason for Visit * Reason Onset Date Comments Medication Refill 11/13/2019 Encounter Details Date Type Department Care Team (Late st Contact Info) Description 11/13/2019 Refill [place] [phone] David Dejesus MD [facility] [place] [address] Social History Tobacco Use Types Packs/Day Years [...] PM EDT Office Visit Cardiology at [address] [phone] Milagros Hernandez MD [facility] [place] [address] Scheduled Procedures Name Priority Associated Diagnoses Date/Ti me EGD, UPPER GI ENDOSCOPY (WRV U 2.09) Peptic stricture of esophagus documented as of this encounter Visit Diagnoses Not on filedocumented in this encounter Care Teams Pharmacy Technician Relationship Specialty Start Date End Date Ana Gillespie APRN [address] [place] [address] PCP - General Family Medicine 02/03/19 documented as of this encounter
--- OUTSIDE RECORDS SUMMARY | 2024-02-05 12:58 | XMS_ITS | Encounter Summary ---
Author Organization [facility] [place] [address] Care Team Providers Care Postal Support Employee Name Role Phone Ana Gillespie APRN Primary Care Provider [phone] Reason for Visit * Reason Onset Date Comments Medication Refill 10/20/2021 Encounter Details Date Type Department Care Team (Late st Contact Info) Description 10/20/2021 Refill [place] [phone] David Dejesus MD [facility] [place] [address] Gastroesophageal reflux disease with esophagitis without hemorrhage [...] 4:00 PM EDT Office Visit Cardiology at [address] [phone] Milagros Hernandez MD [facility] [place] [address] Scheduled Procedures Name Priority Associated Diagnoses Date/Ti me EGD, UPPER GI ENDOSCOPY (WRV U 2.09) Peptic stricture of esophagus documented as of this encounter Visit Diagnoses Diagnosis Gastroesophageal reflux disease with esophagitis without hemorrhage documented in this encounter Care Teams Postal Support Employee Relationship Specialty Start Date End Date Ana Gillespie APRN [address] [place] [address] PCP - General Family Medicine 02/03/19 documented as of this encounter
--- OUTSIDE RECORDS SUMMARY | 2024-02-05 12:58 | XMS_ITS | Encounter Summary ---
Author Organization [facility] Address [facility] [place] [address] Care Team Providers Care Fire Crew Worker Name Role Phone Ana Gillespie VAUGHN Primary Care Provider [phone] Encounter Details Date Type Department Care Team (Latest Contact Info) Description 09/23/2021 11:01 AM EDT - 09/23/2021 1:32 PM EDT Hospital En[place] [address] David Dejesus MD [facility] [place] [address] Discharge Disposition: Home Social History Tobacco Use [...] the day after the procedure, use an gtlz-fnj-dzkigxy spray to numb your throat. Sucking on [...] occurs, please contact your Doctor. Please call [phone] before 8pm Mon-Fri with problems, questions or concerns. If you call after 8pm or on weekends, call the Hospital at [phone] and ask to speak to the Nurseryman Assistant waste collection driver and the toll bridge operator will contact that person for you. When should you call for help? Call 851 anytime you think you may need emergency [...] problems. Where can you learn more? [facility] View your After Visit Summary and more online at [email or web address] If you would like to provide feedback about your hospital experience, please call the Office of Patient and Family Relations at . If you have received this After Visit Summary in error, please immediately return it in person to the department, or notify the [facility] Privacy Office by calling toll free at between the hours of 8AM and 5PM to arrange for our retrieval of the documents at no cost to you. Content Version: 12.2 ?? [phone] [employer]. Care instructions adapted under license by [facility]. If you have questions about a medical condition or this instruction, always ask your healthcare professional. [employer] disclaims any warranty or liability for [...] meter kit. 1 each 0 12/14/2014 Insulin Hamilton, Disposable, (BD INSULIN PEN NEEDLE UF MINI) [...] 2 times daily. ??? Blood Sugar Diagnostic (Phenex PharmaceuticalsUCH ULTRA TEST) Strip 1 each by Other [...] for dosing. 15 mL 11 ??? Insulin Hamilton, Disposable, (BD INSULIN PEN NEEDLE UF MINI) 31 x 3/16 Need[address] [facility]Non-Drug; Combo Route) route 3 times daily as [...] PM EDT Office Visit Cardiology at [address] [address] Milagros Hernandez MD [facility] [place] [address] Scheduled Procedures Name Priority Associated Diagnoses Date/Ti tn EGD, UPPER GI ENDOSCOPY (WRV U 2.09) Peptic stricture of esophagus documented as of this encounter Procedures Procedure Name Priority Date/Time Associated Diagnosis Comments SURGICAL PATHOLOGY REPORT Routine 09/23/2021 12:24 PM EDT SPECIMEN TO PATHOLOGY Routine 09/23/2021 12:24 PM EDT SPECIMEN TO PATHOLOGY Routine 09/23/2021 12:24 PM EDT Upper Gi Endoscopy, Biopsy ([id number]) 09/23/2021 12:02 PM EDT Gastroesophageal reflux disease with esophagitis without hemorrhage UPPER GI ENDOSCOPY Routine 09/23/2021 11 :52 AM EDT documented in this encounter Results * Surgical Pathology Report (09/23/2021 12:24 PM EDT) Final Diagnosis [id number] ? Location: 4; [facility]; A The signing pathologist has (i) [...] active inflammation and ulceration. Electronically signed by: ?Jeniffer Hill MD Verified: ??09/26/2021 19:44 ??Pathologist Performed at: ??-[facility] [place], [place], [place] SPECIMEN(S) SUBMITTED A - Distal esophagus [...] labeled B1-B2. ??shb 09/26/2021 7:44 PM EDT [facility] GI Biopsy 09/23/2021 12:2 4 PM EDT 09/23/2021 12:24 PM EDT GI Biopsy 09/23/2021 12:2 4 PM EDT 09/23/2021 12:24 PM EDT David Dejesus MD PATHOLOGY/CYTOLOGY ORDERABLES Performing Organization Address City/[facility]/ZIP Co de Phone Number [facility] [place] [address] * Specimen to Pathology (09/23/2021 12:24 PM EDT) AP Specimen 09/23/2021 12:2 4 PM EDT 09/23/2021 12:24 PM EDT Narrative [facility] - 09/23/2021 12:24 PM EDT Specimen requisition ordered. ??Separate Pathology report to follow David Dejesus MD PATHOLOGY/CYTOLOGY ORDERABLES Performing Organization Address City/[facility]/ZIP Co de Phone Number [facility] [place] [address] * Specimen to Pathology (09/23/2021 12:24 PM EDT) AP Specimen 09/23/2021 12:2 4 PM EDT 09/23/2021 12:24 PM EDT Narrative [facility] - 09/23/2021 12:24 PM EDT Specimen requisition ordered. ??Separate Pathology report to follow David Dejesus MD PATHOLOGY/CYTOLOGY ORDERABLES Performing Organization Address City/[facility]/ZIP Co de Phone Number [facility] [place] [address] * UPPER GI ENDOSCOPY (09/23/2021 11:52 AM EDT) Pathologist [facility] UPPER GI ENDOSCOPY [facility] Endoscopy Procedure Date: 09/23/2021 11:52 AM ? Patient Name: Jennifer Irving ? Date of : 1960 ? Age: 61 ? Order #: [id number] ? Instrument Name: [id number] ? Procedure: ? Upper GI endoscopy Indications: ? Heartburn Providers: ? David Dejesus MD, Neej J. ? [address], ? Theodora Farrell, Children'S Service Worker Referring MD: ?Ana Keith: ? Monitored Anesthesia [...] 09/23/2021 11:5 2 AM EDT Ana Gillespie SPORTS BETTING MANAGER GENERAL SURGICAL ORD ERABLES [employer]OVATION documented [...] RN) documented in this encounter Care Teams Fire Crew Worker Relationship Specialty Start Date End Date Ana Gillespie APRN [address] [place] [address] PCP - General Family Medicine 02/03/19 documented as of this encounter
--- OUTSIDE RECORDS SUMMARY | 2024-02-05 12:58 | XMS_ITS | Encounter Summary ---
Author Organization [facility] Address [place] [address] Care Team Providers Care Slot Router Name Role Phone Ana Gillespie VAUGHN Primary Care Provider [phone] Reason for Referral * Consultation (Routine) - Closed Specialty Diagnoses / Procedures Referred By Esperanza rodríguez Referred To Contact Neurology Diagnoses Primary parkinsonism David Dejesus MD [facility] [place] [address] [facility] [address] [place] [address] Referral ID Status Reason Start Date Expiration Date V isits Requested Visits Authorized [id number] Closed Consult, Test & Treat 09/23/2021 09/23/2022 1 1 Encounter Details Date Type Department Care Team (Late st Contact Info) Description 09/23/2021 Orders Only [place] [phone] David Dejesus MD [facility] [place] [address] Primary parkinsonism Social History Tobacco Use Types [...] PM EDT Office Visit Cardiology at [address] [address] Milagros Hernandez MD [facility] [place] [address] Scheduled Procedures Name Priority Associated Diagnoses Date/Ti me EGD, UPPER GI ENDOSCOPY (WRV U 2.09) Peptic stricture of esophagus Scheduled Referrals Name Type Priority Associated Diagnoses Orde r Schedule Referral to Neurology Outpatient Referral Routine Primary Parkinsonism Ordered: 09/23/2021 documented as of this encounter Visit Diagnoses Diagnosis Primary parkinsonism Paralysis agitans documented in this encounter Care Teams Slot Router Relationship Specialty Start Date End Date Ana Gillespie APRN [address] [place] [address] PCP - General Family Medicine 02/03/19 documented as of this encounter
--- OUTSIDE RECORDS SUMMARY | 2024-02-05 12:58 | XMS_ITS | Encounter Summary ---
Author Organization [facility] [place] [address] Care Team Providers Care Inventory Control Clerk Name Role Phone Ana Gillespie APRN Primary Care Provider [phone] Reason for Visit * Reason Onset Date Comments Medication Refill 09/08/2019 Encounter Details Date Type Department Care Team (Late st Contact Info) Description 09/08/2019 Refill [place] [phone] David Dejesus MD [facility] [place] [address] Social History Tobacco Use Types Packs/Day Years [...] PM EDT Office Visit Cardiology at [address] [phone] Milagros Hernandez MD [facility] [place] [address] Scheduled Procedures Name Priority Associated Diagnoses Date/Ti me EGD, UPPER GI ENDOSCOPY (WRV U 2.09) Peptic stricture of esophagus documented as of this encounter Visit Diagnoses Not on filedocumented in this encounter Care Teams Inventory Control Clerk Relationship Specialty Start Date End Date Ana Gillespie APRN [address] [place] [address] PCP - General Family Medicine 02/03/19 documented as of this encounter
--- OUTSIDE RECORDS SUMMARY | 2024-02-05 12:58 | XMS_ITS | Encounter Summary ---
Author Organization [facility] Address [facility] [place] [address] Care Team Providers Care Photogrammetric Surveyor Name Role Phone Ana Gillespie VAUGHN Primary Care Provider [phone] Reason for Visit * Auth/Cert Specialty Diagnoses / Procedures Referred By Esperanza rodríguez Referred To Contact Diagnoses esophagitis - please schedule in mid August Procedures PRO UPPER GI ENDOSCOPY, DIAGNOSTIC EGD, UPPER GI ENDOSCOPY Referral ID Status Reason Start Date Expiration Date Visits Re quested Visits Authorized [id number] 1 1 Encounter Details Date Type Department Care Team (Latest Contact Info) Description 09/09/2021 1:21 PM EDT - 09/09/2021 9:08 PM EDT Hospital Encounter [place] [address] David Dejesus MD [facility] [place] [address] Discharge Disposition: Home Social History Tobacco Use [...] meter kit. 1 each 0 12/14/2014 Insulin Clubb, Disposable, (BD INSULIN PEN NEEDLE UF MINI) [...] PM EDT Office Visit Cardiology at [address] [address] Milagros Hernandez MD [facility] [place] [address] Scheduled Procedures Name Priority Associated Diagnoses Date/Ti me EGD, UPPER GI ENDOSCOPY (WRV U 2.09) Peptic stricture of esophagus documented as of this encounter Visit Diagnoses Not on filedocumented in this encounter Care Teams Photogrammetric Surveyor Relationship Specialty Start Date End Date Ana Gillespie APRN [address] [place] [address] PCP - General Family Medicine 02/03/19 documented as of this encounter
--- OUTSIDE RECORDS SUMMARY | 2024-02-05 12:58 | XMS_ITS | Encounter Summary ---
Author Organization [facility] [place] [address] Care Team Providers Care Tractor Driver Teamster Name Role Phone Ana Gillespie APRN Primary Care Provider [phone] Encounter Details Date Type Department Care Team (Late Contact Info) Description 06/25/2021 Orders [place] [phone] David Dejesus MD [facility] [place] [address] Gastroesophageal reflux disease with esophagitis without hemorrhage [...] PM EDT Office Visit Cardiology at [address] [phone] Milagros Hernandez MD [facility] [place] [address] Scheduled Procedures Name Priority Associated Diagnoses Date/Ti me EGD, UPPER GI ENDOSCOPY (WRV U 2.09) Peptic stricture of esophagus documented as of this encounter Visit Diagnoses Diagnosis Gastroesophageal reflux disease with esophagitis without hemorrhage documented in this encounter Care Teams Tractor Driver Teamster Relationship Specialty Start Date End Date Ana Gillespie APRN [address] [place] [address] PCP - General Family Medicine 02/03/19 documented as of this encounter
--- OUTSIDE RECORDS SUMMARY | 2024-02-05 12:58 | XMS_ITS | Encounter Summary ---
Author Organization [facility] [place] [address] Care Team Providers Care Weed Inspector Name Role Phone Ana Gillespie VAUGHN Primary Care Provider [phone] Encounter Details Date Type Department Care Team (Late st Contact Info) Description 11/24/2021 Telephone [place] [address] Chiquita James, RN Social History [...] encounter Miscellaneous Notes * Telephone Encounter - Chqiuita James, RN - 11/24/2021 4:07 PM EDT Incoming VM again requesting to be connected with scheduling for F/U EGD Forwarded documented in this encounter Plan of Treatment Upcoming Encounters Date Type Department Care Team (Late st Contact Info) Description 03/10/2024 4:00 PM EDT Office Visit Cardiology at [address] [address] Milagros Hernandez MD [facility] [place] [address] Scheduled Procedures Name Priority Associated Diagnoses Date/Ti me EGD, UPPER GI ENDOSCOPY (WRV U 2.09) Peptic stricture of esophagus documented as of this encounter Visit Diagnoses Not on filedocumented in this encounter Care Teams Weed Inspector Relationship Specialty Start Date End Date Ana Gillespie APRN [address] [place] [address] PCP - General Family Medicine 02/03/19 documented as of this encounter
--- OUTSIDE RECORDS SUMMARY | 2024-02-05 12:58 | XMS_ITS | Encounter Summary ---
Author Organization [facility] [place] [address] Care Team Providers Care Software Quality Manager Name Role Phone Ana Gillespie VAUGHN Primary Care Provider [phone] Encounter Details Date Type Department Care Team (Late st Contact Info) Description 07/14/2021 Telephone [place] [phone] Chiquita James, RN Social History Tobacco Use [...] PM EDT Office Visit Cardiology at [address] [phone] Milagros Hernandez MD [facility] [address] Scheduled Procedures Name Priority Associated Diagnoses Date/Ti me EGD, UPPER GI ENDOSCOPY (WRV U 2.09) Peptic stricture of esophagus documented as of this encounter Visit Diagnoses Not on filedocumented in this encounter Care Teams Software Quality Manager Relationship Specialty Start Date End Date Ana Gillespie APRN [address] [place] [address] PCP - General Family Medicine 02/03/19 documented as of this encounter
--- OUTSIDE RECORDS SUMMARY | 2024-02-05 12:58 | XMS_ITS | Encounter Summary ---
Author Organization [facility] [place] [address] Care Team Providers Care Draw Frame Tender Name Role Phone Ana Gillespie VAUGHN Primary Care Provider [phone] Encounter Details Date Type Department Care Team (Late st Contact Info) Description 09/12/2021 [place] [address] Chiquita James, RN Social History [...] PM EDT Office Visit Cardiology at [address] [phone] Milagros Hernandez MD [facility] [place] [address] Scheduled Procedures Name Priority Associated Diagnoses Date/Ti me EGD, UPPER GI ENDOSCOPY (WRV U 2.09) Peptic stricture of esophagus documented as of this encounter Visit Diagnoses Not on filedocumented in this encounter Care Teams Draw Frame Tender Relationship Specialty Start Date End Date Ana Gillespie APRN [address] [place] [address] PCP - General Family Medicine 02/03/19 documented as of this encounter
--- OUTSIDE RECORDS SUMMARY | 2024-02-05 12:58 | XMS_ITS | Encounter Summary ---
Author Organization [facility] [place] [address] Care Team Providers Care Core Loader Name Role Phone Ana Gillespie APRN Primary Care Provider [phone] Reason for Visit * Reason Onset Date Comments Medication Refill 07/15/2021 Encounter Details Date Type Department Care Team (Late st Contact Info) Description 07/15/2021 Refill [place] [phone] David Dejesus MD [facility] [place] [address] Gastroesophageal reflux disease with esophagitis without hemorrhage [...] PM EDT Office Visit Cardiology at [address] [phone] Milagros Hernandez MD [facility] [place] [address] Scheduled Procedures Name Priority Associated Diagnoses Date/Ti me EGD, UPPER GI ENDOSCOPY (WRV U 2.09) Peptic stricture of esophagus documented as of this encounter Visit Diagnoses Diagnosis Gastroesophageal reflux disease with esophagitis without hemorrhage documented in this encounter Care Teams Core Loader Relationship Specialty Start Date End Date Ana Gillespie APRN [address] [place] [address] PCP - General Family Medicine 02/03/19 documented as of this encounter
--- OUTSIDE RECORDS SUMMARY | 2024-02-05 12:58 | XMS_ITS | Encounter Summary ---
Author Organization [facility] [place] [address] Care Team Providers Care Rehab Assistant Name Role Phone Ana Gillespie VAUGHN Primary Care Provider [phone] Encounter Details Date Type Department Care Team (Late st Contact Info) Description 10/27/2021 Telephone [place] [address] Chiquita James, RN Social History [...] PM EDT Office Visit Cardiology at [address] [phone] Milagros Hernandez MD [facility] [place] [address] Scheduled Procedures Name Priority Associated Diagnoses Date/Ti me EGD, UPPER GI ENDOSCOPY (WRV U 2.09) Peptic stricture of esophagus documented as of this encounter Visit Diagnoses Not on filedocumented in this encounter Care Teams Rehab Assistant Relationship Specialty Start Date End Date Ana Gillespie APRN [address] [place] [address] PCP - General Family Medicine 02/03/19 documented as of this encounter
--- OUTSIDE RECORDS SUMMARY | 2024-02-05 12:58 | XMS_ITS | Encounter Summary ---
Author Organization [facility] Address [facility] [place] [address] Care Team Providers Care Calenderer Name Role Phone David Blue MD Primary Care Provider [phone] Encounter Details Date Type Department Care Team (Latest Contact Info) Description 11/22/2018 10:02 AM EDT - 11/22/2018 1:36 PM EDT Hospital En[place] [address] David Dejesus MD [facility] [place] [address] Discharge Disposition: Home Social History Tobacco Use [...] better as expected. Wednesday-Wednesday Same Day Endo [phone] Otherwise contact [phone] and ask to speak to the interactive media marketing specialist button inspector Follow-up care is a fam part of [...] meter kit. 1 each 0 12/14/2014 Insulin [place], Disposable, (BD INSULIN PEN NEEDLE UF MINI) [...] PM EDT Office Visit Cardiology at [address] [address] Milagros Hernandez MD [facility] [place] [address] Scheduled Procedures Name Priority Associated [...] PM EDT 11/22/2018 12:43 PM EDT Narrative [facility] - 11/22/2018 12:43 PM EDT Specimen requisition ordered. ??Separate Pathology report to follow David Dejesus MD PATHOLOGY/CYTOLOGY ORDERABLES [facility] [place] [address] * Surgical Pathology Report (11/22/2018 12:34 PM EDT) Final Diagnosis [id number] ? Location: 4T; EA06; A The signing [...] Nguyen MD Verified: ??11/23/2018 ?Pathologist Performed at: ??-[facility] [place] Dept. of [place]ology, [place], [place] CLINICAL INFORMATION Specimen Submitted: A - [...] labeled E1. ??shb 11/23/2018 2:35 PM EDT [facility] GI Biopsy 11/22/2018 12:3 4 PM EDT 11/22/2018 12:34 PM EDT GI Biopsy 11/22/2018 12:3 4 PM EDT 11/22/2018 12:34 PM EDT GI Biopsy 11/22/2018 12:3 4 PM EDT 11/22/2018 12:34 PM EDT GI Biopsy 11/22/2018 12:3 4 PM EDT 11/22/2018 12:34 PM EDT GI Biopsy 11/22/2018 12:3 4 PM EDT 11/22/2018 12:34 PM EDT David Dejesus MD PATHOLOGY/CYTOLOGY ORDERABLES [facility] [place] [address] * Specimen to Pathology (11/22/2018 12:34 PM EDT) AP Specimen 11/22/2018 12:3 4 PM EDT 11/22/2018 12:34 PM EDT Narrative [facility] - 11/22/2018 12:34 PM EDT Specimen requisition ordered. ??Separate Pathology report to follow David Dejesus MD PATHOLOGY/CYTOLOGY ORDERABLES Performing Organization Address City/[facility]/ZIP Co de Phone Number [facility] [place] [address] * Specimen to Pathology (11/22/2018 12:34 PM EDT) AP Specimen 11/22/2018 12:3 4 PM EDT 11/22/2018 12:34 PM EDT Narrative [facility] - 11/22/2018 12:34 PM EDT Specimen requisition ordered. ??Separate Pathology report to follow David Dejesus MD PATHOLOGY/CYTOLOGY ORDERABLES Performing Organization Address [facility] [place] [address] * Specimen to Pathology (11/22/2018 12:34 PM EDT) AP Specimen 11/22/2018 12:3 4 PM EDT 11/22/2018 12:34 PM EDT Narrative [facility] - 11/22/2018 12:34 PM EDT Specimen requisition ordered. ??Separate Pathology report to follow David Dejesus MD PATHOLOGY/CYTOLOGY ORDERABLES Performing Organization Address [facility] [place] [address] * Specimen to Pathology (11/22/2018 12:34 PM EDT) AP Specimen 11/22/2018 12:3 4 PM EDT 11/22/2018 12:34 PM EDT Narrative [facility] - 11/22/2018 12:34 PM EDT Specimen requisition ordered. ??Separate Pathology report to follow David Dejesus MD PATHOLOGY/CYTOLOGY ORDERABLES Performing Organization Address [facility] [place] [address] * UPPER GI ENDOSCOPY (11/22/2018 12:12 PM EDT) UPPER GI ENDOSCOPY [facility] Endoscopy Procedure Date: 11/22/2018 12:12 PM ? Patient Name: Jennifer Irving ? Date of : 1960 ? Age: 58 ? Order #: [id number] ? Instrument Name: [id number] LOANER ? Procedure: ? Upper GI endoscopy [...] SURGICAL ORD ERABLES Performing Organization Address [facility] Co de Phone Number [employer] * (ABNORMAL) POCT Glucose (11/22/2018 10:58 AM EDT) Glucose, POC 277(H) 65 - 199 mg/dL [facility] Comment: Supplemental ranges: <140 mg/dL before meals <180 mg/dL all other times of the day Blood specimen (specimen) 11/22/2018 10:58 AM EDT 11/22/2018 10:58 AM EDT David Dejesus MD POINT OF CARE TEST ORDERABLES Performing Organization Address [facility] Co de Phone Number [facility] [place] [address] documented in this encounter Visit Diagnoses Not [...] CRNA) documented in this encounter Care Teams Calenderer Relationship Specialty Start Date End Date David Blue MD [address] [place] [address] PCP - General 04/01/10 02/02/19 documented as of this encounter
--- OUTSIDE RECORDS SUMMARY | 2024-02-05 12:59 | XMS_ITS | Encounter Summary ---
Author Organization [facility] [place] [address] Care Team Providers Care Geography Teacher Name Role Phone Unavailable Primary Care Provider Unavailabl e Encounter Details Date Type Department Care Team (Late st Contact Info) Description 03/01/2009 Ancillary Procedure Radiology Library at [facility] [place] [address] Ana Gillespie APRN [address] [place] [address] Social History Tobacco Use Types Packs/Day Years [...] PM EDT Office Visit Cardiology at [address] [place] [address] [facility] [address] Scheduled Procedures Name Priority Associated Diagnoses Date/Ti me EGD, UPPER GI ENDOSCOPY (WRV U 2.09) Peptic stricture of esophagus documented as of this encounter Procedures Procedure Name Priority Date/Time Associated Diagnosis Comments FILM LIBRARY STORAGE ONLY MAMMO Routine 03/01/2009 12:00 AM EDT documented in this encounter Results * Film Library- Storage Only Mammo (03/01/2009 12:00 AM EDT) Narrative [facility] - 02/13/2019 8:43 AM EDT This exam is auto-finalizing. It's purpose is for storage only. Ana Gillespie APRN [facility] FILM LIBRARY ORD ERABLES [facility] [place] documented in this encounter Visit Diagnoses Not on filedocumented in this encounter
--- OUTSIDE RECORDS SUMMARY | 2024-02-05 12:59 | XMS_ITS | Encounter Summary ---
Author Organization Formerly [facility] [place] [address] Care Team Providers Care Agency Cashier Name Role Phone David Blue MD Primary Care Provider [phone] Encounter Details Date Type Department Care Team (Late st Contact Info) Description 04/03/2014 11:30 AM EST - 04/03/2014 12:00 PM EST Surgery Gastroenterology at [facility] [place] [address] David Dejesus MD [facility] [place] [address] EGD, UPPER GI ENDOSCOPY (WRVU 2.09) Social [...] - 04/03/2014 12:48 PM EST Please call [phone], before 5pm with problems, questions or concerns, after 5pm call the Hospital at [phone] and ask to speak to the Counselor Camp hydro generation supervisor and the horizontal boring mill set up operator will contactthat person for you. Discharge [...] Everywhere. 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 y/o who [...] C/C/E NEURO: No focal ASSESSMENT AND PLAN Jennifer Irving is a 53 y.o. y/o who presents for EGD. I have consented her for the procedure. documented in this encounter Plan of Treatment Upcoming Encounters Date Type Department Care Team (Late st Contact Info) Description 03/10/2024 4:00 PM EDT Office Visit Cardiology at [address] [address] Milagros Hernandez MD [facility] [place] [address] Scheduled Procedures Name Priority Associated Diagnoses Date/Ti [...] Surgical Pathology Report (04/03/2014 12:37 PM EST) Final Diagnosis ? [facility] ? Provider: ?? DAVID DEJESUS ??Pt. Name: ?? JENNIFER IRVING ? Acc #: ?[id number] ?Pt. ? Col Date: ?? 04/03/2014 ?/Sex: [...] - Labeled/Fixativ e: Duodenal bulb, formalin. ? [facility] ? Provider: ?? DAVID DEJESUS ??Pt. Name: ?? JENNIFER IRVING ? Acc #: ?[id number] ?Pt. ? Col Date: ?? 04/03/2014 ?/Sex: [...] Diagnosis: ? Same 04/04/2014 9:11 PM EST [facility] GI Biopsy 04/03/2014 12:3 7 PM EST 04/03/2014 12:37 PM EST GI Biopsy 04/03/2014 12:3 7 PM EST 04/03/2014 12:37 PM EST GI Biopsy 04/03/2014 12:3 7 PM EST 04/03/2014 12:37 PM EST GI Biopsy 04/03/2014 12:3 7 PM EST 04/03/2014 12:37 PM EST David Dejesus MD PATHOLOGY/CYTOLOGY ORDERABLES Performing Organization Address City/[facility] Co de Phone Number [facility] [address] * Specimen to Pathology (surgical or derm) (04/03/2014 12:37 PM EST) AP Specimen 04/03/2014 12:3 7 PM EST 04/03/2014 12:37 PM EST Narrative CERNER GALINDOENNIUM - 04/03/2014 12:37 PM EST Specimen requisition ordered. ??Separate Pathology report to follow David Dejesus MD PATHOLOGY/CYTOLOGY ORDERABLES Performing Organization Address [facility] Co de Phone Number DARCY BARNETT * Specimen to Pathology (surgical or derm) (04/03/2014 12:37 PM EST) AP Specimen 04/03/2014 12:3 7 PM EST 04/03/2014 12:37 PM EST Narrative CERNER MILLENNIUM - 04/03/2014 12:37 PM EST Specimen requisition ordered. ??Separate Pathology report to follow David Dejesus MD PATHOLOGY/CYTOLOGY ORDERABLES Performing Organization Address City/[facility]/ZIP Co de Phone Number [facility] * Specimen to Pathology (surgical or derm) (04/03/2014 12:37 PM EST) AP Specimen 04/03/2014 12:3 7 PM EST 04/03/2014 12:37 PM EST Narrative CERNER MILLENNIUM - 04/03/2014 12:37 PM EST Specimen requisition ordered. ??Separate Pathology report to follow David Dejesus MD PATHOLOGY/CYTOLOGY ORDERABLES Performing Organization Address [facility] Co de Phone Number DARCY BARNETT * Specimen to Pathology (surgical or derm) (04/03/2014 12:37 PM EST) AP Specimen 04/03/2014 12:3 7 PM EST 04/03/2014 12:37 PM EST Narrative DARCY BARNETT - 04/03/2014 12:37 PM EST Specimen requisition ordered. ??Separate Pathology report to follow David Dejesus MD PATHOLOGY/CYTOLOGY ORDERABLES Performing Organization Address [facility] Co de Phone Number DARCY BARNETT * UPPER GI ENDOSCOPY (04/03/2014 12:06 PM EST) UPPER GI ENDOSCOPY [facility] Endoscopy Patient Name: Jennifer Irving ? Procedure Date: 04/03/2014 12:06 PM ? [facility]: [id number] ? Date of : 1960 ? Age: 53 ? Order #: [id number] ? Procedure: ? Upper GI endoscopy Indications: [...] fentaNYL 50mcg/mL injection ONCE PRN, Starting on Tu04/03/14 at 1211, Until Wed04/03/14 at 1326, Intra-Operative [...] RN) documented in this encounter Care Teams Agency Cashier Relationship Specialty Start Date End Date David Blue MD [address] [place] [address] PCP - General 04/01/10 02/02/19 documented as of this encounter
--- OUTSIDE RECORDS SUMMARY | 2024-02-05 12:59 | XMS_ITS | Encounter Summary ---
Author Organization [facility] [place] [address] Care Team Providers Care Imaging Center Manager Name Role Phone Ana Gillespie APRN Primary Care Provider [phone] Encounter Details Date Type Department Care Team (Late st Contact Info) Description 09/06/2009 Orders Only Gy[place] [phone] Kathy Romero MD [facility] [address] Social History Tobacco Use Types Packs/Day Years [...] PM EDT Office Visit Cardiology at [address] [phone] Milagros Hernandez MD [facility] [place] [address] Scheduled Procedures Name Priority Associated Diagnoses Date/Ti me EGD, UPPER GI ENDOSCOPY (WRV U 2.09) Peptic stricture of esophagus documented as of this encounter Procedures Procedure Name Priority Date/Time Associated Diagnosis Comments NON-MEAT PROCESS WORKER FINAL REPORT Routine 09/06/2009 12:50 PM EDT documented in this encounter Results * Non-School Cleaner Final Report (09/06/2009 12:50 PM EDT) Non-School Cleaner Final Report 00- [id number] ? Location: [facility] The signing pathologist has (i) examined the relevant preparation(s) for the specimen(s) and (ii) rendered or confirmed the diagnosis(es). . ? Pathology Non-School Cleaner Cytology Final Report Clinical Information Specimen Source: ?Pelvic Washings Clinical History/Impressio n: ?? DX: pelvic mass: Gross Description: ?? Received ??fresh, approximately 100 ml. total volume of ?? cloudy, red fluid. ?? Total Preparation: Liquid Based Prep 1; Cell Block 1. Interpretation Specimen submitted is satisfactory. Diagnosis Negative for Malignancy 09/09/09 ?Screened by: ? SLA ?Rescreened by: ?? SBT 09/09/09 ?Verified by: ? Darien MARTE, Venita Tubbs. ? Pathologist ? (Electronic Signature) Comment Pelvic Washings: ? Blood only. ? No mesothelial cells identified. ? No malignant cells identified. Cell block confirms cytologic impression. ??Please see concurrent surgical specimen, [id number], for additional information. DARCY BARNETT 09/06/2009 12:5 0 PM EDT Kathy Romero MD PATHOLOGY/CYTOLOGY O HUGHERAREYMUNDO DARCY BARNETT documented in this encounter Visit Diagnoses Not on filedocumented in this encounter Additional Health Concerns Infection Onset Date Last Indicated Resolved Time Rule Out COVID-19 08/15/2022 08/15/2022 08/15/2022 11:30 AM EDT Rule Out COVID-19 08/15/2022 08/15/2022 08/15/2022 3:01 PM EDT Rule Out C. difficile 08/19/2022 08/19/20222022 8:33 PM EDT documented as of this encounter Care Teams Imaging Center Manager Relationship Specialty Start Date End Date Ana Gillespie APRN [address] [place] [address] PCP - General Family Medicine 02/03/19 documented as of this encounter
--- OUTSIDE RECORDS SUMMARY | 2024-02-05 12:59 | XMS_ITS | Encounter Summary ---
Author Organization [facility] Address [facility] [place] [address] Care Team Providers Care Mexican Food Cook Name Role Phone David Blue MD Primary Care Provider [phone] Encounter Details Date Type Department Care Team (Late st Contact Info) Description 12/14/2014 Orders [place] [phone] Dean Caban MD [facility] [place] [address] Type 2 diabetes mellitus, uncontrolled Social History [...] 4:00 PM EDT Office Visit Cardiology at [address] [phone] Milagros Hernandez MD [facility] [place] [place] [address] Scheduled Procedures Name Priority Associated Diagnoses Date/Ti me EGD, UPPER GI ENDOSCOPY (WRV U 2.09) Peptic stricture of esophagus documented as of this encounter Visit Diagnoses Diagnosis Type 2 diabetes mellitus, uncontrolled Type II or unspecified type diabetes mellitus without mention of complication, uncontrolled documented in this encounter Care Teams Mexican Food Cook Relationship Specialty Start Date End Date David Blue MD [address] [place] [address] PCP - General 04/01/10 02/02/19 documented as of this encounter
--- OUTSIDE RECORDS SUMMARY | 2024-02-05 12:59 | XMS_ITS | Encounter Summary ---
Author Organization [facility] Address [address] [place] [address] Care Team Providers Care Hospital Nurse Name Role Phone David Blue MD Primary Care Provider [phone] Encounter Details Date Type Department Care Team (Late st Contact Info) Description 07/18/2021 Lab Requisition [facility] Pathology & Laboratory Medicine - [facility] [address] [place] [address] Kavita Viera, DO [address] [place] [address] Encounter for other general examination Social History [...] management options, if applicable. 07/22/2021 10:39 EDT [facility] Final Diagnosis A. STOMACH, ANTRUM, BIOPSY: - Transitional mucosa with reactive (chemical) gastropathy. - Negative for Helicobacter pylori on H&E stained sections. B. ESOPHAGUS, MID-DISTAL, BIOPSY: - Fibrinopurulent exudate. - No intact epithelium identified. 07/22/2021 10:39 [facility] Attestation By the signature below, the attending physician certifies that they have 1) personally conducted a gross and/or microscopic examination of the described specimen(s), and/or personally interpreted the results of laboratory testing of the described specimen(s), and 2) personally rendered or confirmed the above diagnosis. 07/22/2021 10:39 [facility] at [address]39 Clinical History Intractable nausea, vomiting 07/22/2021 10:39 [facility] Gross Description A. Received in [...] B1. ROSLYN CACERES(ASCP) 07/21/2021 9:55 07/22/2021 10:39 [facility] Performing Lab [facility] 10:39 [facility] Scanned Images 07/22/2021 10:39 [facility] Tissue ENTIRE ESOPHAGUS / Unknown 07/18/2021 14:10 EST 07/18/2021 22:23 EST Tissue specimen (specimen) ESOPHAGEAL STRUCTURE / Unknown 07/18/2021 14:10 EST 07/18/2021 22:23 EST Kavita Viera DO PATHOLOGY ORDER [facility] [address] [place] [address] documented in this encounter Visit Diagnoses Diagnosis Encounter for other general examination documented in this encounter Care Teams Hospital Nurse Relationship Specialty Start Date End Date David Blue MD [address] [place] [address] PCP - General 07/15/09 documented as of this encounter
--- OUTSIDE RECORDS SUMMARY | 2024-02-05 12:59 | XMS_ITS | Clinical Summary ---
Author Organization [facility] Address [address] [place] [address] Care Team Providers Care Greenhouse Florist Name Role Phone David Blue MD Primary Care Provider [phone] Social History Tobacco Use Types Packs/Day Years [...] COVID-19 Vaccine (2022-24 season) 2023 Care Teams Greenhouse Florist Relationship Specialty Start Date End Date David Blue MD [address] [place] [address] PCP - General 07/15/09
--- OUTSIDE RECORDS SUMMARY | 2024-02-05 12:59 | XMS_ITS | Encounter Summary ---
Author Organization [facility] Address [address] [place] [address] Care Team Providers Care Supervisor Printing And Stamping Name Role Phone David Blue MD Primary Care Provider [phone] Encounter Details Date Type Department Care Team (Late st Contact Info) Description 06/10/2021 Lab Requisition [facility] Pathology & Laboratory Medicine - [facility] [address] [place] [address] Merly Purcell, DO [address] [place] [address] Encounter for other general examination [...] management options, if applicable. 06/11/2021 13:01 EST [facility] Final Diagnosis A. JEJUNUM, PROXIMAL, [...] - Consistent with Hyperplastic polyp. 06/11/2021 13:01 [facility] Attestation By the signature below, the attending physician certifies that they have 1) personally conducted a gross and/or microscopic examination of the described specimen(s), and/or personally interpreted the results of laboratory testing of the described specimen(s), and 2) personally rendered or confirmed the above diagnosis. 06/11/2021 13:01 [facility] at [address] Clinical History Anemia, abdominal pain 06/11/2021 13:01 [facility] Gross Description A. [...] (initials R, B) and antrum is a ikrby-pink tissue measuring 0.5 x 0.2 x 0.2 [...] N1. ROSLYN EARLY(ASCP) 06/10/2021 19:05 06/11/2021 13:01 [facility] Performing Lab [facility] 06/11/2021 13:01 [facility] Scanned Images 06/11/2021 13:01 [facility] Tissue SPECIMEN FROM RECTUM / [...] Purcell DO PATHOLOGY ORDERABLES Performing Organization Address City/State/[facility] Co de Phone Number [facility] [address] [place] [address] documented in this encounter Visit Diagnoses Diagnosis Encounter for other general examination documented in this encounter Care Teams Supervisor Printing And Stamping Relationship Specialty Start Date End Date David Blue MD [address] [place] [address] PCP - General 07/15/09 documented as of this encounter
--- OUTSIDE RECORDS SUMMARY | 2024-02-05 12:59 | XMS_ITS | Encounter Summary ---
Author Organization [facility]ly [facility] Address [facility] [place] [address] Care Team Providers Care Facing Cutting Machine Operator Name Role Phone David Blue MD Primary Care Provider [phone] Encounter Details Date Type Department Care Team (Late st Contact Info) Description 03/02/2018 Orders Only [place] [phone] David Dejesus MD [facility] [address] Breast cancer screening Social History Tobacco Use [...] PM EDT Office Visit Cardiology at [address] [address] Milagros Hernandez MD [facility] [place] [address] Scheduled Procedures Name Priority Associated Diagnoses Date/Ti me EGD, UPPER GI ENDOSCOPY (WRV U 2.09) Peptic stricture of esophagus documented as of this encounter Visit Diagnoses Diagnosis Breast cancer screening Breast screening, unspecified documented in this encounter Care Teams Facing Cutting Machine Operator Relationship Specialty Start Date End Date David Blue MD [address] [place] [address] PCP - General 04/01/10 02/02/19 documented as of this encounter
--- OUTSIDE RECORDS SUMMARY | 2024-02-05 12:59 | XMS_ITS | Encounter Summary ---
Author Organization [facility] Address [facility] [place] [address] Care Team Providers Care Chief Analytics Officer Name Role Phone David Blue MD Primary Care Provider [phone] Encounter Details Date Type Department Care Team (Late st Contact Info) Description 04/30/2016 Orders [place] [phone] David Dejesus MD [facility] [place] [address] Visit for screening mammogram Social History Tobacco [...] PM EDT Office Visit Cardiology at [address] [phone] Milagros Hernandez MD [facility] [place] [address] Scheduled Procedures Name Priority Associated Diagnoses Date/Ti me EGD, UPPER GI ENDOSCOPY (WRV U 2.09) Peptic stricture of esophagus documented as of this encounter Visit Diagnoses Diagnosis Visit for screening mammogram Other screening mammogram documented in this encounter Care Teams Chief Analytics Officer Relationship Specialty Start Date End Date David Blue MD [address] [place] [address] PCP - General 04/01/10 02/02/19 documented as of this encounter
--- OUTSIDE RECORDS SUMMARY | 2024-02-05 12:59 | XMS_ITS | Encounter Summary ---
Author Organization [facility] Address [facility] [place] [address] Care Team Providers Care Clay Grinder Name Role Phone David Blue MD Primary Care Provider [phone] Encounter Details Date Type Department Care Team (Late st Contact Info) Description 07/22/2018 11:59 PM EDT Anesthesia Event [place] [phone] Vanessa Escalona MD [facility] [place] [address] Anesthesia Record Procedure Summary Procedure Name Responsible [...] discussed with patient who. Plan discussed with GEOMETRY TEACHER. PAT Staff Note documented in this encounter Plan of Treatment Upcoming Encounters Date Type Department Care Team (Late st Contact Info) Description 03/10/2024 4:00 PM EDT Office Visit Cardiology at [address] [address] Milagros Hernandez MD [facility] [address] Scheduled Procedures Name Priority Associated Diagnoses Date/Ti me EGD, UPPER GI ENDOSCOPY (WRV U 2.09) Peptic stricture of esophagus documented as of this encounter Visit Diagnoses Not on filedocumented in this encounter Care Teams Clay Grinder Relationship Specialty Start Date End Date David Blue MD [address] [place] [address] PCP - General 04/01/10 02/02/19 documented as of this encounter
--- OUTSIDE RECORDS SUMMARY | 2024-02-05 12:59 | XMS_ITS | Encounter Summary ---
Author Organization [facility] Address [facility] [place] [address] Care Team Providers Care Perinatal Breastfeeding Assistant Name Role Phone David Blue MD Primary Care Provider [phone] Reason for Visit * Reason Comments Gastroesophageal Reflux Encounter Details Date Type Department Care Team (Late st Contact Info) Description 03/20/2014 1:00 PM EST Office [place] [address] Baljinder Maharaj MD [facility] [place] [place] [address] GERD (gastroesophageal reflux disease); Farrell's esophagus Discharge Disposition: Home Social History Tobacco [...] visit was 30 minutes, all spent in [id number] discussion with the patient and her and son. documented in this encounter Plan of Treatment Upcoming Encounters Date Type Department Care Team (Late st Contact Info) Description 03/10/2024 4:00 PM EDT Office Visit Cardiology at [address] [address] Milagros Hernandez MD [facility] [place] [address] Scheduled Procedures Name Priority Associated Diagnoses Date/Ti me EGD, UPPER GI ENDOSCOPY (WRV U 2.09) Peptic stricture of esophagus documented as of this encounter Visit Diagnoses Diagnosis GERD (gastroesophageal reflux disease) Esophageal reflux Farrell's esophagus documented in this encounter Care Teams Perinatal Breastfeeding Assistant Relationship Specialty Start Date End Date David Blue MD [address] [place] [address] PCP - General 04/01/10 02/02/19 documented as of this encounter
--- OUTSIDE RECORDS SUMMARY | 2024-02-05 12:59 | XMS_ITS | Encounter Summary ---
Author Organization [facility] Address [facility] [place] [address] Care Team Providers Care Electrophysiology Technician Name Role Phone David Blue MD Primary Care Provider [phone] Reason for Referral * Surgical - Closed Specialty Diagnoses / Procedures Referred By Esperanza rodríguez Referred To Contact General Surgery Diagnoses Esophageal reflux David Dejesus MD [facility] GASTROENTEROLOGY [place] [phone] Baljinder Maharaj MD [facility] [place] [address] Referral ID Status Reason Start Date Expiration Date V isits Requested Visits Authorized [id number] Closed Specialty Service Requested 01/16/2014 07/15/2014 1 1 Encounter Details Date Type Department Care Team (Late st Contact Info) Description 01/16/2014 Orders [place] [address] David Dejesus MD [facility] [place] [address] Esophageal reflux (Primary Dx) Social History Tobacco [...] PM EDT Office Visit Cardiology at [address] [address] Milagros Hernandez MD [facility] [address] Scheduled Orders Name Type Priority Associated Diagnoses [...] Primary documented in this encounter Care Teams Electrophysiology Technician Relationship Specialty Start Date End Date David Blue MD [address] [place] [address] PCP - General 04/01/10 02/02/19 documented as of this encounter
--- OUTSIDE RECORDS SUMMARY | 2024-02-05 12:59 | XMS_ITS | Referral Summary ---
Author Organization [facility] Address [address] [place] [address] Care Team Providers Care Skoog Patching Machine Operator Name Role Phone David Blue MD Primary Care Provider [phone] Social History Tobacco Use Types Packs/Day Years Used Date Smoking Tobacco: Never Assessed Sex and Gender Information Value Date Recorded Sex Assigned at Not on file Gender Identity Not on file Sexual Orientation Not on file Plan of Treatment Not on file Care Teams Skoog Patching Machine Operator Relationship Specialty Start Date End Date David Blue MD [address] [place] [address] PCP - General 07/15/09
--- OUTSIDE RECORDS SUMMARY | 2024-02-05 12:59 | XMS_ITS | Encounter Summary ---
[place] [address] Care Team Providers Care Violin Tutor Name Role Phone David Blue MD Primary Care Provider [phone] Reason for Visit * Reason Onset Date Comments Prior Authorization 05/20/2018 Encounter Details Date Type Department Care Team (Late st Contact Info) Description 05/20/2018 Telephone [place] [address] Yoko Marroquin CCMA Prior Authorization Social History [...] Prior Authorization 4L Gastroenterology / [place] [address] Subscriber Insurance: [place] Medicaid Phone: Fax: Physician: David Dejesus Return Pharmacy: [facility] Fax: Medication Requested: Pantoprazole Strength: 40mg Frequency: Twice Daily Disp.: 180 Refills: 3 Currently taking: Diagnosis for this medication: GERD ICD-10 code: K21.9 Prior medications trialed in this patient: Esomeprazole Medication: Outcome/Adverse Reactions: Treatment Failure Decision: PA not required Tracking number/Case number/Reference number: [id number] Effective date: Start: End: documented in this encounter Plan of Treatment Upcoming Encounters Date Type Department Care Team (Late st Contact Info) Description 03/10/2024 4:00 PM EDT Office Visit Cardiology at [address] [address] Milagros Hernandez MD [facility] [place] [address] Scheduled Procedures Name Priority Associated Diagnoses Date/Ti me EGD, UPPER GI ENDOSCOPY (WRV U 2.09) Peptic stricture of esophagus documented as of this encounter Visit Diagnoses Not on filedocumented in this encounter Care Teams Violin Tutor Relationship Specialty Start Date End Date David Blue MD [address] [place] [address] PCP - General 04/01/10 02/02/19 documented as of this encounter
--- OUTSIDE RECORDS SUMMARY | 2024-02-05 12:59 | XMS_ITS | Encounter Summary ---
[place] [address] Care Team Providers Care Communication Specialist Name Role Phone David Blue MD Primary Care Provider [phone] Reason for Visit * Reason Onset Date Comments Medication Refill 09/20/2018 Encounter Details Date Type Department Care Team (Late st Contact Info) Description 09/20/2018 Telephone [place] [address] Francoise Vides CMA GASTROENTEROLOGY DEPT [...] PM EDT Office Visit Cardiology at [address] [address] Milagros Hernandez MD [facility] [place] [address] Scheduled Procedures Name Priority Associated Diagnoses Date/Ti me EGD, UPPER GI ENDOSCOPY (WRV U 2.09) Peptic stricture of esophagus documented as of this encounter Visit Diagnoses Not on filedocumented in this encounter Care Teams Communication Specialist Relationship Specialty Start Date End Date David Blue MD [address] [place] [address] PCP - General 04/01/10 02/02/19 documented as of this encounter
--- OUTSIDE RECORDS SUMMARY | 2024-02-05 12:59 | XMS_ITS | Encounter Summary ---
Author Organization [facility] Address [facility] [place] [address] Care Team Providers Care Hobbing Machine Operator Name Role Phone David Blue MD Primary Care Provider [phone] Encounter Details Date Type Department Care Team (Late st Contact Info) Description 02/24/2016 Orders [place] [phone] David Dejesus MD [facility] [place] [address] Screening breast examination Social History Tobacco Use [...] PM EDT Office Visit Cardiology at [address] [phone] Milagros Hernandez MD [facility] [place] [place] [address] Scheduled Procedures Name Priority Associated Diagnoses Date/Ti me EGD, UPPER GI ENDOSCOPY (WRV U 2.09) Peptic stricture of esophagus documented as of this encounter Visit Diagnoses Diagnosis Screening breast examination Other screening breast examination documented in this encounter Care Teams Hobbing Machine Operator Relationship Specialty Start Date End Date David Blue MD [address] [place] [address] PCP - General 04/01/10 02/02/19 documented as of this encounter
--- OUTSIDE RECORDS SUMMARY | 2024-02-05 12:59 | XMS_ITS | Encounter Summary ---
Author Organization [facility] Address [facility] [place] [address] Care Team Providers Care Beater Out Name Role Phone David Blue MD Primary Care Provider [phone] Reason for Visit * Auth/Cert Specialty Diagnoses / Procedures Referred By Esperanza rodríguez Referred To Contact Diagnoses three year surv for Farrell's esophagus last 04/03/14 Procedures PRO UPPER GI ENDOSCOPY, DIAGNOSTIC PRO COLONOSCOPY, DIAGNOSTIC EGD, UPPER GI ENDOSCOPY Referral ID Status Reason Start Date Expiration Date Visits Re quested Visits Authorized [id number] 1 1 Encounter Details Date Type Department Care Team (Late st Contact Info) Description 03/20/2016 11:00 AM EST - 03/20/2016 12:00 PM EST [place] [address] David Dejesus MD [facility] [place] [address] EGD WITH BIOPSY (WRVU 2.39) Social History [...] or concerns, please call us Wednesday-Wednesday Clinic [phone] 8a-5p Same Day Endo [phone] 7a-8p Nights and weekends contact [phone] and ask to speak to the ukrainian folk arts instructor armed security professional. Follow up care is a fam part [...] meter kit. 1 each 0 12/14/2014 Insulin Burney, Disposable, (BD INSULIN PEN NEEDLE UF MINI) [...] PM EDT Office Visit Cardiology at [address] [address] Milagros Hernandez MD [facility] [place] [address] Scheduled Procedures Name Priority Associated Diagnoses Date/Ti [...] Surgical Pathology Report (03/20/2016 12:43 PM EST) Final Diagnosis [id number] ?Location: 4T; EA07; A The signing pathologist [...] ing: (T1) ??peters 03/24/2016 5:02 PM EST [facility] GI Biopsy 03/20/2016 12:4 3 PM EST 03/20/2016 12:43 PM EST GI Biopsy 03/20/2016 12:4 3 PM EST 03/20/2016 12:43 PM EST GI Biopsy 03/20/2016 12:4 3 PM EST 03/20/2016 12:43 PM EST GI Biopsy 03/20/2016 12:4 3 PM EST 03/20/2016 12:43 PM EST GI Biopsy 03/20/2016 12:4 3 PM EST 03/20/2016 12:43 PM EST GI Biopsy 03/20/2016 12:4 3 PM EST 03/20/2016 12:43 PM EST David Dejesus MD PATHOLOGY/CYTOLOGY ORDERABLES Performing Organization Address City/[facility]/ZIP Co de Phone Number [facility] [place] [phone] * Specimen to Pathology (surgical or derm) (03/20/2016 12:43 PM EST) AP Specimen 03/20/2016 12:4 3 PM EST 03/20/2016 12:43 PM EST Narrative [facility] - 03/20/2016 12:43 PM EST Specimen requisition ordered. ??Separate Pathology report to follow David Dejesus MD PATHOLOGY/CYTOLOGY ORDERABLES Performing Organization Address [facility]/[place] [address] * Specimen to Pathology (surgical or derm) (03/20/2016 12:43 PM EST) AP Specimen 03/20/2016 12:4 3 PM EST 03/20/2016 12:43 PM EST Narrative [facility] - 03/20/2016 12:43 PM EST Specimen requisition ordered. ??Separate Pathology report to follow David Dejesus MD PATHOLOGY/[place] [address] * Specimen to Pathology (surgical or derm) (03/20/2016 12:43 PM EST) AP Specimen 03/20/2016 12:4 3 PM EST 03/20/2016 12:43 PM EST Narrative [facility] - 03/20/2016 12:43 PM EST Specimen requisition ordered. ??Separate Pathology report to follow David Dejesus MD PATHOLOGY/CYTOLOGY ORDERABLES Performing Organization Address City/[facility]/[place] [address] * Specimen to Pathology (surgical or derm) (03/20/2016 12:43 PM EST) AP Specimen 03/20/2016 12:4 3 PM EST 03/20/2016 12:43 PM EST Narrative [facility] - 03/20/2016 12:43 PM EST Specimen requisition ordered. ??Separate Pathology report to follow David Dejesus MD PATHOLOGY/CYTOLOGY ORDERABLES Performing Organization Address City/[facility]/[place] [address] * Specimen to Pathology (surgical or derm) (03/20/2016 12:43 PM EST) AP Specimen 03/20/2016 12:4 3 PM EST 03/20/2016 12:43 PM EST Narrative [facility] - 03/20/2016 12:43 PM EST Specimen requisition ordered. ??Separate Pathology report to follow David Dejesus MD PATHOLOGY/CYTOLOGY [place] [address] * Specimen to Pathology (surgical or derm) (03/20/2016 12:43 PM EST) AP Specimen 03/20/2016 12:4 3 PM EST 03/20/2016 12:43 PM EST Narrative [facility] - 03/20/2016 12:43 PM EST Specimen requisition ordered. ??Separate Pathology report to follow David Dejesus MD PATHOLOGY/CYTOLOGY ORDERABLES Performing Organization Address [facility]/State/[place] [address] * COLONOSCOPY (03/20/2016 11:32 AM EST) COLONOSCOPY [facility] Endoscopy Procedure Date: 03/20/2016 11:32 AM ? Patient Name: Jennifer Irving ? N: [id number] ? Date of : 1960 ? Age: 55 ? Order #: [id number] ? Instrument Name: [id number] ? Procedure: ? Colonoscopy Indications: ? Screening for colorectal malignant ? neoplasm Providers: ? David Dejesus MD, Geronimo Joyner ? MD Valerie, Tapan Chong RN, ? Theodora Farrell, Hospice Administrator Referring : ?David Blue MD Medicines: ? [...] (03/20/2016 11:31 AM EST) UPPER GI ENDOSCOPY [facility] Endoscopy Procedure Date: 03/20/2016 11:31 AM ? Patient Name: Jennifer Irving ? Date of : 1960 ? Age: 55 ? Order #: [id number] ? Instrument Name: [id number] ? Procedure: ? Upper GI endoscopy Indications: [...] care under the ? supervision of a MAIL HANDLERS SUPERVISOR was determined ? to be medically necessary [...] GENERAL SURGICAL ORD ERABLES Performing Organization Address City/State/[facility] Co de Phone Number [place] * (ABNORMAL) POCT Glucose (03/20/2016 10:54 AM EST) Glucose, POC 243(H) 65 - 199 mg/dL [facility] Comment: Supplemental ranges: <140 mg/dL before meals <180 mg/dL all other times of the day Blood specimen (specimen) 03/20/2016 10:54 AM EST 03/20/2016 10:54 AM EST David Dejesus MD POINT OF CARE TEST ORDERABLES [facility] [place] [address] * (ABNORMAL) POCT Fingerstick Glucose (03/20/2016) Glucose, POC 243(A) 60 - 199 mg/dl 03/20/2016 David [...] CRNA) documented in this encounter Care Teams Beater Out Relationship Specialty Start Date End Date David Blue MD [address] [place] [address] PCP - General 04/01/10 02/02/19 documented as of this encounter
--- OUTSIDE RECORDS SUMMARY | 2024-02-05 12:59 | XMS_ITS | Encounter Summary ---
Author Organization [facility] Address [facility] [place] [address] Care Team Providers Care Digital Ad Trafficker Name Role Phone David Blue MD Primary Care Provider + [phone] Encounter Details Date Type Department Care Team (Late st Contact Info) Description 03/31/2016 Telephone [place] [phone] Francoise Vides CMA GASTROENTEROLOGY DEPT Social History [...] PM EDT Office Visit Cardiology at [address] [phone] Milagros Hernandez MD [facility] [place] [address] Scheduled Procedures Name Priority Associated Diagnoses Date/Ti me EGD, UPPER GI ENDOSCOPY (WRV U 2.09) Peptic stricture of esophagus documented as of this encounter Visit Diagnoses Not on filedocumented in this encounter Care Teams Digital Ad Trafficker Relationship Specialty Start Date End Date David Blue MD [address] [place] [address] PCP - General 04/01/10 02/02/19 documented as of this encounter
--- OUTSIDE RECORDS SUMMARY | 2024-02-05 12:59 | XMS_ITS | Encounter Summary ---
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 for Farrell's esophagus last 04/03/14 Procedures PRO UPPER GI ENDOSCOPY, DIAGNOSTIC PRO COLONOSCOPY, DIAGNOSTIC EGD, UPPER GI ENDOSCOPY Referral ID Status Reason Start Date Expiration Date Visits Re quested Visits Authorized [id number] 1 1 Encounter Details Date Type Department Care Team (Late st Contact Info) Description 03/20/2016 11:24 AM EST Anesthesia [place] [address] Calli Jean MD [facility] [place] [address] Geronimo Del Toro, [address] ANESTHESIOLOGY [place] [address] Anesthesia Record Procedure Summary Procedure Name Responsible [...] Calli Jean - 03/21/2016 9:50 AM EST [facility] Department of Anesthesiology Post-procedure Note Patient: Jennifer Irving Procedure Summary Date Anesthesia Start Anesthesia Stop Room / Location 03/20/16 1124 1240 [facility] 3 / [facility] Procedure Diagnosis Surgeon Responsible Provider EGD WITH BIOPSY (N/A Trunk); COLONOSCOPY FLEXIBLE, WITH BX (N/A Trunk) (three year surv for Farrell's esophagus last 04/03/14) David Dejesus MD Clark, [place], MD All Anesthesia Providers: Anesthesiologist: Calli Jean MD TEACHER INSTRUMENTAL: Geronimo Del Toro CRNA Last (1hr) Vitals: BP Temp Pulse Resp SpO2 Patient Location: PACU/[facility] Level of Consciousness: Awake and Alert Pain [...] Dejesus MD at [facility] ??? Pro upper gi endoscopy, biopsy N/A 04/03/2014 UPPER GASTROINTESTINAL ENDOSCOPY,WITH BIOPSY SINGLE OR MULTIPLE performed by David Dejesus MDat [facility] Social History Substance Use Topics ??? [...] discussed with patient. Plan discussed with TEACHER INSTRUMENTAL. PAT Staff Note documented in this encounter Plan of Treatment Upcoming Encounters Date Type Department Care Team (Late st Contact Info) Description 03/10/2024 4:00 PM EDT Office Visit Cardiology at [address] [address] Milagros Hernandez MD [facility] [place] [address] Scheduled Procedures Name Priority Associated Diagnoses Date/Ti [...] r documented in this encounter Care Teams Drawing Box Tender Relationship Specialty Start Date End Date David Blue MD [address] [place] [address] PCP - General 04/01/10 02/02/19 documented as of this encounter
--- OUTSIDE RECORDS SUMMARY | 2024-02-05 12:59 | XMS_ITS | Encounter Summary ---
Author Organization [facility] Address [facility] [place] [address] Care Team Providers Care Sequins Stringer Name Role Phone David Blue MD Primary Care Provider [phone] Encounter Details Date Type Department Care Team (Late st Contact Info) Description 09/23/2016 Ancillary Procedure Radiology Library at [facility] [place] [address] Ana Gillespie APRN [address] [place], [place] [id number] Social History Tobacco Use Types Packs/Day Years [...] PM EDT Office Visit Cardiology at [address] [place] [address] Milagros Hernandez MD [facility] [place] [address] Scheduled Procedures Name Priority Associated Diagnoses Date/Ti me EGD, UPPER GI ENDOSCOPY (WRV U 2.09) Peptic stricture of esophagus documented as of this encounter Procedures Procedure Name Priority Date/Time Associated Diagnosis Comments FILM LIBRARY STORAGE ONLY MAMMO Routine 09/23/2016 12:00 AM EDT documented in this encounter Results * Film Library- Storage Only Mammo (09/23/2016 12:00 AM EDT) Narrative RAD - 02/13/2019 8:42 AM EDT This exam is auto-finalizing. It's purpose is for storage only. Ana Gillespie APRN IMG FILM LIBRARY ORD ERABLES [place], [place] documented in this encounter Visit Diagnoses Not on filedocumented in this encounter Care Teams Sequins Stringer Relationship Specialty Start Date End Date David Blue MD [address] [place] [address] PCP - General 04/01/10 02/02/19 documented as of this encounter
--- OUTSIDE RECORDS SUMMARY | 2024-02-05 12:59 | XMS_ITS | Encounter Summary ---
Author Organization [facility] Address [facility] [place] [address] Care Team Providers Care Metal Tank Builder Name Role Phone David Blue MD Primary Care Provider + [phone] Reason for Visit * Reason Comments GI Problem Encounter Details Date Type Department Care Team (Late st Contact Info) Description 03/15/2013 9:00 AM EST Office [place] [address] Noe Genao MD [facility] [place] [address] GERD (gastroesophageal reflux disease) (Primary Dx); Covington's [...] to be successful. 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
--- OUTSIDE RECORDS SUMMARY | 2024-02-05 12:59 | XMS_ITS | Encounter Summary ---
Author Organization [facility] [place] [address] Care Team Providers Care Strategic Intelligence Officer Name Role Phone David Blue MD Primary Care Provider + [phone] Encounter Details Date Type Department Care Team (Late st Contact Info) Description 10/12/2018 Telephone [place] [phone] Mariela Jordan Social History Tobacco Use Types [...] - 10/12/2018 12:11 PM EDT Jennifer Irving [id number] Diagnosis: Farrell's Esophagus 1. Have you ever [...] [] YES [x] NO If Yes send [facility] message to [facility] DEVICE CHECK 4. Are you a diabetic? [x] YES [] NO If yes, controlled by meds or diet? Insulin/Diet 5. Do you have any Allergies to Eggs, Latex or Medications? [x] YES [] NO If Yes, what: See E-DH 6. Do you take any Oral Iron [...] 4:00 PM EDT Office Visit Cardiology at [address] [address] Milagros Hernandez MD [facility] [place] [address] Scheduled Procedures Name Priority Associated Diagnoses Date/Ti me EGD, UPPER GI ENDOSCOPY (WRV U 2.09) Peptic stricture of esophagus documented as of this encounter Visit Diagnoses Not on filedocumented in this encounter Care Teams Strategic Intelligence Officer Relationship Specialty Start Date End Date David Blue MD [address] [place] [address] PCP - General 04/01/10 02/02/19 documented as of this encounter
--- OUTSIDE RECORDS SUMMARY | 2024-02-05 12:59 | XMS_ITS | Encounter Summary ---
[place] [address] Care Team Providers Care Template Layout Worker Name Role Phone David Blue MD Primary Care Provider + [phone] Reason for Visit * Reason Onset Date Comments Prior Authorization 09/27/2018 Encounter Details Date Type Department Care Team (Late st Contact Info) Description 09/27/2018 Telephone [place] [address] Francoise Vides CMA GASTROENTEROLOGY DEPT Prior Authorization [...] Prior Authorization 4L Gastroenterology / [place] [address] ?? Subscriber Insurance: [place] Medicaid ?? Phone: . Fax: ? Physician: David Dejesus ? Return ?? Pharmacy: [facility] ? Medication Requested: pantoprazole ?? Strength: 40 mg Frequency: BID ?? Disp.: 180 Refills: 3 ?? Currently taking: no ?? Diagnosis for this medication: Farrell's w/ dysplasia, and GERD ?? ICD-10 code: ?? Prior medications trialed in this patient: Pantoprazole QD, esomperazole, and omeprazole ? Medication: Outcome/Adverse Reactions: treatment failure ?? Decision: approved ?? Tracking number/Case number/Reference number: [id number] ?? Effective date: ?? Start: End: 09/28/2019 documented in this encounter Plan of Treatment Upcoming Encounters Date Type Department Care Team (Late st Contact Info) Description 03/10/2024 4:00 PM EDT Office Visit Cardiology at [address] [address] Milagros Hernandez MD [facility] [place] [address] Scheduled Procedures Name Priority Associated Diagnoses Date/Ti me EGD, UPPER GI ENDOSCOPY (WRV U 2.09) Peptic stricture of esophagus documented as of this encounter Visit Diagnoses Not on filedocumented in this encounter Care Teams Template Layout Worker Relationship Specialty Start Date End Date David Blue MD [address] [place] [address] PCP - General 04/01/10 02/02/19 documented as of this encounter
--- OUTSIDE RECORDS SUMMARY | 2024-02-05 12:59 | XMS_ITS | Encounter Summary ---
Author Organization [facility] [place] [address] Care Team Providers Care Humid System Operator Name Role Phone David Blue MD Primary Care Provider [phone] Encounter Details Date Type Department Care Team (Late st Contact Info) Description 01/15/2011 Ancillary Procedure Radiology Library at [facility] [place] [place] [address] Ana Gillespie APRN [address] [place] [address] Social History Tobacco Use Types [...] PM EDT Office Visit Cardiology at [address] [address] Milagros Hernandez MD [facility] [place] [address] Scheduled Procedures Name Priority Associated Diagnoses Date/Ti me EGD, UPPER GI ENDOSCOPY (WRV U 2.09) Peptic stricture of esophagus documented as of this encounter Procedures Procedure Name Priority Date/Time Associated Diagnosis Comments FILM LIBRARY STORAGE ONLY MAMMO Routine 01/15/2011 12:00 AM EDT documented in this encounter Results * Film Library- Storage Only Mammo (01/15/2011 12:00 AM EDT) Narrative [facility] - 02/13/2019 8:41 AM EDT This exam is auto-finalizing. It's purpose is for storage only. Ana Gillespie APRN [facility] FILM LIBRARY ORD ERABLES [place], [place] documented in this encounter Visit Diagnoses Not on filedocumented in this encounter Care Teams Humid System Operator Relationship Specialty Start Date End Date David Blue MD [address] [place] [address] PCP - General 04/01/10 02/02/19 documented as of this encounter
--- OUTSIDE RECORDS SUMMARY | 2024-02-05 12:59 | XMS_ITS | Encounter Summary ---
Author Organization [facility] Address [facility] [place] [address] Care Team Providers Care Photo Retoucher Name Role Phone David Blue MD Primary Care Provider [phone] Encounter Details Date Type Department Care Team (Late st Contact Info) Description 12/24/2014 Orders [place] [phone] David Dejesus MD [facility] [place] [address] Social History Tobacco Use Types Packs/Day Years [...] PM EDT Office Visit Cardiology at [address] [phone] Milagros Hernandez MD [facility] [place] [address] Scheduled Procedures Name Priority Associated Diagnoses Date/Ti me EGD, UPPER GI ENDOSCOPY (WRV U 2.09) Peptic stricture of esophagus documented as of this encounter Visit Diagnoses Not on filedocumented in this encounter Care Teams Photo Retoucher Relationship Specialty Start Date End Date David Blue MD [address] [place] [address] PCP - General 04/01/10 02/02/19 documented as of this encounter
--- OUTSIDE RECORDS SUMMARY | 2024-02-05 12:59 | XMS_ITS | Encounter Summary ---
Author Organization [facility] Address [address] [place] [address] Care Team Providers Care Dog Sitter Name Role Phone David Blue MD Primary Care Provider [phone] Encounter Details Date Type Department Care Team (Late st Contact Info) Description 01/06/2023 Lab Requisition [facility] Pathology & Laboratory Medicine - [facility] [address] [place] [address], [place] [address] Outr Resulting Lab, Provider Social History Tobacco [...] 19 - 88 pg/mL 01/06/2023 18:58 EDT [facility] Blood VENOUS BLOOD / Unknown 01/05/2023 11:20 EDT 01/06/2023 17:02 EDT Provider Outr Resulting Lab CHEMISTRY & BLOOD GAS ORDERABLES [facility] [address] [place] [address] documented in this encounter Visit Diagnoses Not on filedocumented in this encounter Care Teams Dog Sitter Relationship Specialty Start Date End Date David Blue MD [address] [place] [address] PCP - General 07/15/09 documented as of this encounter
--- OUTSIDE RECORDS SUMMARY | 2024-02-05 12:59 | XMS_ITS | Encounter Summary ---
[place] [address] Care Team Providers Care Rerolling Machine Operator Name Role Phone David Blue MD Primary Care Provider + [phone] Reason for Visit * Reason Onset Date Comments Weight Management 04/19/2013 Encounter Details Date Type Department Care Team (Late st Contact Info) Description 04/19/2013 Telephone Pediatric & Adolescent Medicine at [address] [address] Guanakito Cronin MD [address] [place] [address] Weight Management Social History Tobacco Use Types [...] PM EDT Office Visit Cardiology at [address] [address] Milagros Hernandez MD [facility] [place] [address] Scheduled Procedures Name Priority Associated Diagnoses Date/Ti me EGD, UPPER GI ENDOSCOPY (WRV U 2.09) Peptic stricture of esophagus documented as of this encounter Visit Diagnoses Not on filedocumented in this encounter Care Teams Rerolling Machine Operator Relationship Specialty Start Date End Date David Blue MD [address] [place] [address] PCP - General 04/01/10 02/02/19 documented as of this encounter
--- OUTSIDE RECORDS SUMMARY | 2024-02-05 12:59 | XMS_ITS | Encounter Summary ---
Author Organization [facility] Address [facility] [place] [address] Care Team Providers Care Business Insurance Agent Name Role Phone David Blue MD Primary Care Provider [phone] Encounter Details Date Type Department Care Team (Latest Contact Info) Description 07/02/2014 12:45 PM EST - 07/02/2014 11:59 PM EST Hospital En[place] [address] CLINIC, David Lees MD [address] [place], [place] [address] Discharge Disposition: Home Social History Tobacco Use [...] PM EDT Office Visit Cardiology at [address] [phone] Milagros Hernandez MD [facility] [place] [address] Scheduled Procedures Name Priority Associated Diagnoses Date/Ti [...] to this patient by the [facility] [place]. Symone Alen Jose MANAGER RESIDENTIAL IMG MAMMO ORDERAB LES documented in this encounter Visit Diagnoses Not on filedocumented in this encounter Care Teams Business Insurance Agent Relationship Specialty Start Date End Date David Blue MD [address] [place] [address] PCP - General 04/01/10 02/02/19 documented as of this encounter
--- OUTSIDE RECORDS SUMMARY | 2024-02-05 12:59 | XMS_ITS | Encounter Summary ---
Author Organization [facility] Address [address] [place] [address] Care Team Providers Care Pumper Gauger Apprentice Name Role Phone David Blue MD Primary Care Provider [phone] Encounter Details Date Type Department Care Team (Late st Contact Info) Description 07/03/2023 Lab Requisition [facility] Pathology & Laboratory Medicine - [facility] [address] [place], [place] [address] Outr Resulting Lab, Provider Social History Tobacco [...] Antigen Detection Negative Negative 07/03/2023 21:42 EST [facility] Urine URINE / Unknown 07/02/2023 1 8:28 EST 07/03/2023 21:19 EST Provider Outr Resulting Lab MICROBIOLOGY - GENERAL ORDERABLES [facility] [address] [place] [address] documented in this encounter Visit Diagnoses Not on filedocumented in this encounter Care Teams Pumper Gauger Apprentice Relationship Specialty Start Date End Date David Blue MD [address] [place] [address] PCP - General 07/15/09 documented as of this encounter
--- OUTSIDE RECORDS SUMMARY | 2024-02-05 12:59 | XMS_ITS | Encounter Summary ---
Author Organization [facility] [place] [address] Care Team Providers Care Automotive Parts Salesperson Name Role Phone Ana Gillespie APRN Primary Care Provider [phone] Encounter Details Date Type Department Care Team (Late st Contact Info) Description 09/06/2009 Orders Only Gy[place] [phone] Kathy Romero MD [facility] [place] [address] Social History Tobacco Use Types Packs/Day Years [...] 4:00 PM EDT Office Visit Cardiology at [address] [phone] Milagros Hernandez MD [facility] [place] [address] Scheduled Procedures Name Priority Associated Diagnoses Date/Ti me EGD, UPPER GI ENDOSCOPY (WRV U 2.09) Peptic stricture of esophagus documented as of this encounter Procedures Procedure Name Priority Date/Time Associated Diagnosis Comments SURGICAL PATHOLOGY REPORT Routine 09/06/2009 2:34 PM EDT documented in this encounter Results * Surgical Pathology Report (09/06/2009 2:34 PM EDT) Surgical Pathology Report [id number] ? Location: [facility] The signing pathologist has (i) examined the [...] fibromembranous, and fibrofatty tissues. ??Sectioning reveals a 2.0-pn-qu-greates t- dimension, clear fluid-filled, smooth-lined cyst with surrounding rubbery, estrada-white tissue. Sections/Processi ng: ??A operations representative section is submitted for frozen ?section. ??The frozen section residue is submitted in ?(A1). ??Additional operations representative sections are ?submitted. (R4) ??aje/EJR Microscopic [...] Section Report ?09/06/09 14:51 09/06/09 ??Verified by: ??oRhan MARTE, Viktor Segura, Pathologist The attending pathologist whose electronic signature appears on this report has reviewed all diagnostic slides in rendering the frozen section diagnosis. This intraoperative consultation should be interpreted as a preliminary diagnosis pending review of the entire specimen and special studies, if any. DARCY BARNETT 09/06/2009 2:34 PM EDT Kathy Romero MD PATHOLOGY/CYTOLOGY O RDERABLES Performing Organization Address City/State/[facility] Co de Phone Number DARCY BARNETT documented in this encounter Visit Diagnoses Not on filedocumented in this encounter Additional Health Concerns Infection Onset Date Last Indicated Resolved Time Rule Out COVID-19 08/15/2022 08/15/2022 08/15/2022 11:30 AM EDT Rule Out COVID-19 08/15/2022 08/15/2022 08/15/2022 3:01 PM EDT Rule Out C. difficile 08/19/2022 08/19/20222022 8:33 PM EDT documented as of this encounter Care Teams Automotive Parts Salesperson Relationship Specialty Start Date End Date Ana Gillespie APRN [address] [place] [address] PCP - General Family Medicine 02/03/19 documented as of this encounter
--- OUTSIDE RECORDS SUMMARY | 2024-02-05 12:59 | XMS_ITS | Encounter Summary ---
Author Organization [facility] Address [facility] [place] [address] Care Team Providers Care Service Counter Cashier Name Role Phone David Blue MD Primary Care Provider [phone] Reason for Visit * Reason Onset Date Comments Medication Refill 09/26/2018 Encounter Details Date Type Department Care Team (Late st Contact Info) Description 09/26/2018 [place] [phone] Francoise Vides CMA GASTROENTEROLOGY DEPT Social History [...] PM EDT Office Visit Cardiology at [address] [phone] Milagros Hernandez MD [facility] [place] [address] Scheduled Procedures Name Priority Associated Diagnoses Date/Ti me EGD, UPPER GI ENDOSCOPY (WRV U 2.09) Peptic stricture of esophagus documented as of this encounter Visit Diagnoses Not on filedocumented in this encounter Care Teams Service Counter Cashier Relationship Specialty Start Date End Date David Blue MD [address] [place] [address] PCP - General 04/01/10 02/02/19 documented as of this encounter
--- OUTSIDE RECORDS SUMMARY | 2024-02-05 12:59 | XMS_ITS | Encounter Summary ---
Author Organization [facility] Address [facility] [place] [address] Care Team Providers Care Head Of Acquisitions Name Role Phone David Blue MD Primary Care Provider [phone] Encounter Details Date Type Department Care Team (Late st Contact Info) Description 06/22/2018 Telephone [place] [address] Erin Lynn Social History Tobacco Use Types [...] PM EDT Office Visit Cardiology at [address] [address] Milagros Hernandez MD [facility] [place] [address] Scheduled Procedures Name Priority Associated Diagnoses Date/Ti me EGD, UPPER GI ENDOSCOPY (WRV U 2.09) Peptic stricture of esophagus documented as of this encounter Visit Diagnoses Not on filedocumented in this encounter Care Teams Head Of Acquisitions Relationship Specialty Start Date End Date David Blue MD [address] [place] [address] PCP - General 04/01/10 02/02/19 documented as of this encounter
--- OUTSIDE RECORDS SUMMARY | 2024-02-05 12:59 | XMS_ITS | Encounter Summary ---
[place] [address] Care Team Providers Care Engineering Aid Name Role Phone David Blue MD Primary Care Provider [phone] Reason for Visit * Reason Onset Date Comments Prior Authorization 02/26/2016 Encounter Details Date Type Department Care Team (Late st Contact Info) Description 02/26/2016 Telephone [place] [address] Francoise Vides CMA GASTROENTEROLOGY DEPT Prior Authorization [...] Prior Authorization 4L Gastroenterology / [place] [address] Subscriber Insurance: [place] medicaid Physician: David Dejesus Return Pharmacy: [facility] [...] lapse in usage. Tracking number/Case number/Reference number: [id number] Effective date: Start: End: documented in this encounter Plan of Treatment Upcoming Encounters Date Type Department Care Team (Late st Contact Info) Description 03/10/2024 4:00 PM EDT Office Visit Cardiology at [address] [phone] Milagros Hernandez MD [facility] [place] [address] Scheduled Procedures Name Priority Associated Diagnoses Date/Ti me EGD, UPPER GI ENDOSCOPY (WRV U 2.09) Peptic stricture of esophagus documented as of this encounter Visit Diagnoses Not on filedocumented in this encounter Care Teams Engineering Aid Relationship Specialty Start Date End Date David Blue MD [address] [place] [address] PCP - General 04/01/10 02/02/19 documented as of this encounter
--- OUTSIDE RECORDS SUMMARY | 2024-02-05 12:59 | XMS_ITS | Encounter Summary ---
Author Organization [facility] Address [facility] [place] [address] Care Team Providers Care Director Market Intelligence Name Role Phone David Blue MD Primary Care Provider [phone] Reason for Referral * Consultation (Routine) - Closed Specialty Diagnoses / Procedures Referred By Esperanza rodríguez Referred To Contact Endocrinology Diagnoses Diabetes mellitus type 2, uncontrolled Dean Caban MD [facility] [place] [address] [facility] [place] [address] Referral ID Status Reason Start Date Expiration Date V isits Requested Visits Authorized [id number] Closed Continuity of Care 12/13/2014 12/13/2015 3 3 Reason for Visit * Reason Comments Diabetes Encounter Details Date Type Department Care Team (Late st Contact Info) Description 12/13/2014 1:40 PM EDT Office Visit Endocrinology at [place] [phone] [facility] [place] [address] Diabetes mellitus type 2, uncontrolled Discharge Disposition: [...] with gestational diabetes 12 years ago and [id number] five years ago. The patient reports that [...] mg BID - Will coordinate visit with Bpm Solution Architect at next visit - Complication Monitoring: - [...] and discussed with the attending Dr. Surendra Luke. Jerad Caban. Endocrinology, Diabetes, and Metabolism Fellow Leadership Preventive Medicine Resident 12/13/2014 documented in this encounter Plan of Treatment Upcoming Encounters Date Type Department Care Team (Late st Contact Info) Description 03/10/2024 4:00 PM EDT Office Visit Cardiology at [address] [phone] [facility] [place] [address] Scheduled Procedures Name Priority Associated Diagnoses Date/Ti [...] 12:33 PM EDT) Creatinine, Urine 284 mg/dL LILIAN MERLOS GALINDONAZIA Albumin, Urine 258.4 mg/L ESE Reeves GALINDOMELISSAIUM Albumin / Creatinin Ratio, Urine 91 mcg/mg Cr [facility] Comment: Reference Range* Random collection (mcg/mg creatinine) Normal ?<30 Microalbuminuria ?? 30 - 300 Clinical Albuminuria ?? >300 *[place] Diabetes Association. Diabetic Nephropathy. Diabetes Care 1997;(Suppl 1):S24-S27 Exercise within 24 hour, infection, fever, CHF, marked hyperglycemia, and marked hypertension may elevate urinary albumin excretion over baseline values. Urine specimen (specimen) 12/13/2014 12:33 PM EDT 12/13/2014 12:39 PM EDT Narrative Resulting Agency Comment Spec In Lab Moustapha Agosto MD URINE ORDERABLES [facility] * (ABNORMAL) Hemoglobin A1c (12/13/2014 11:56 AM EDT) Hemoglobin A1c 10.6(H) 4.3 - 5.6 % [facility] Comment: Reference Range: 4.3 - 5.6% 5.7 [...] Mellitus, Diabetes Care 2013; 36: Suppl. 1, E23-24 Estimated Average Glucose 258 mg/dL [facility] Comment: eAG equivalents for HbA1c percentages: HbA1c(%) ?eAG(mg/dL) 6.0 ?126 6.5 ?140 7.0 ?154 7.5 ?169 8.0 ?183 8.5 ?197 9.0 ?212 9.5 ?226 10.0 ? 240 Limitations: The eAG calculation has not been validated on women, individuals below 18 years old and above 70 years old, and individuals with hemoglobinopathies. Additional resources are available on the ADA website: http://Lagoon.Duetto/DHMCadacalc Lucio BIGGS, Jeannie J, Edwin R, et al. ??Translating the A1C assay into estimated average glucose values. ??Diabetes Care 2008:31(8):3942-6499. Blood specimen (specimen) 12/13/2014 11:56 AM EDT 12/13/2014 12:19 PM EDT Narrative Resulting Agency Comment Spec In Lab Moustapha Agosto MD CHEMISTRY ORDERABLES Performing Organization Address City/State/[facility] Co mo Phone Number [facility] documented in this encounter Visit Diagnoses Diagnosis Diabetes mellitus type 2, uncontrolled Type II or unspecified type diabetes mellitus without mention of complication, uncontrolled documented in this encounter Care Teams Director Market Intelligence Relationship Specialty Start Date End Date David Blue MD [address] [place] [address] PCP - General 04/01/10 02/02/19 documented as of this encounter
--- OUTSIDE RECORDS SUMMARY | 2024-02-05 12:59 | XMS_ITS | Encounter Summary ---
Author Organization [facility] [address] Care Team Providers Care Breaker Engineer Name Role Phone David Blue MD Primary Care Provider + [phone] Encounter Details Date Type Department Care Team (Late st Contact Info) Description 06/28/2018 Telephone [place] [address] Erin Lynn Social History Tobacco [...] - 06/28/2018 11:52 AM EST Jennifer Irving [id number] Diagnosis: EGD 1. Have you ever had [...] [] YES [x] NO If Yes send inHealthy Crowdfunder message to [facility] ENDO DEVICE CHECK 4. Are you [...] NO 11. You must have a responsible green party stay at the facility during your procedure and drive you home? [x] YES 12. Is there any other information you would like to give us to aid in scheduling? Height:__5'___ Weight:__173 BMI: __33.8__ Age:58 y.o. documented in this encounter Plan of Treatment Upcoming Encounters Date Type Department Care Team (Late st Contact Info) Description 03/10/2024 4:00 PM EDT Office Visit Cardiology at [address] [phone] Milagros Hernandez MD [facility] [place] [address] Scheduled Procedures Name Priority Associated Diagnoses Date/Ti me EGD, UPPER GI ENDOSCOPY (WRV U 2.09) Peptic stricture of esophagus documented as of this encounter Visit Diagnoses Not on filedocumented in this encounter Care Teams Breaker Engineer Relationship Specialty Start Date End Date David Blue MD [address] [place] [address] PCP - General 04/01/10 02/02/19 documented as of this encounter
--- OUTSIDE RECORDS SUMMARY | 2024-02-05 12:59 | XMS_ITS | Encounter Summary ---
Author Organization [facility] Address [facility] [place] [address] Care Team Providers Care Distribution Engineering Technologist Name Role Phone David Blue MD Primary Care Provider + [phone] Encounter Details Date Type Department Care Team (Late st Contact Info) Description 09/21/2017 Telephone [place] [address] Ami Chao RN Social History [...] PM EDT Office Visit Cardiology at [address] [phone] Milagros Hernandez MD [facility] [place] [address] Scheduled Procedures Name Priority Associated Diagnoses Date/Ti me EGD, UPPER GI ENDOSCOPY (WRV U 2.09) Peptic stricture of esophagus documented as of this encounter Visit Diagnoses Not on filedocumented in this encounter Care Teams Distribution Engineering Technologist Relationship Specialty Start Date End Date David Blue MD [address] [place] [address] PCP - General 04/01/10 02/02/19 documented as of this encounter
--- OUTSIDE RECORDS SUMMARY | 2024-02-05 12:59 | XMS_ITS | Encounter Summary ---
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 last 04/03/14 Procedures PRO UPPER GI ENDOSCOPY, DIAGNOSTIC PRO COLONOSCOPY, DIAGNOSTIC EGD, UPPER GI ENDOSCOPY Referral ID Status Reason Start Date Expiration Date Visits Re quested Visits Authorized [id number] 1 1 Encounter Details Date Type Department Care Team (Latest Contact Info) Description 03/20/2016 9:21 AM EST - 03/20/2016 1:24 PM EST Hospital En[place] [address] David Dejesus MD [facility] [place] [address] Discharge Disposition: Home Social History Tobacco Use [...] or concerns, please call us Wednesday-Wednesday Clinic [phone] 8a-5p Same Day Endo [phone] 7a-8p Nights and weekends contact [phone] and ask to speak to the biomedical engineering internship content production specialist. Follow up care is a fam part [...] meter kit. 1 each 0 12/14/2014 Insulin Mission, Disposable, (BD INSULIN PEN NEEDLE UF MINI) [...] PM EDT Office Visit Cardiology at [address] [address] Milagros Hernandez MD [facility] [place] [address] Scheduled Procedures Name Priority Associated Diagnoses Date/Ti [...] Report (03/20/2016 12:43 PM EST) Final Diagnosis [id number] ?Location: 4T; EA07; A The signing pathologist [...] ing: (T1) ??peters 03/24/2016 5:02 PM EST [facility] GI Biopsy 03/20/2016 12:4 3 [...] 3 PM EST 03/20/2016 12:43 PM EST aDvid Dejesus MD PATHOLOGY/CYTOLOGY ORDERABLES [facility] [place] [id number] * Specimen to Pathology (surgical or derm) (03/20/2016 12:43 PM EST) AP Specimen 03/20/2016 12:4 3 PM EST 03/20/2016 12:43 PM EST Narrative [facility] - 03/20/2016 12:43 PM EST Specimen requisition ordered. ??Separate Pathology report to follow David Dejesus MD PATHOLOGY/[place] [address] * Specimen to Pathology (surgical or derm) (03/20/2016 12:43 PM EST) AP Specimen 03/20/2016 12:4 3 PM EST 03/20/2016 12:43 PM EST Narrative [facility] - 03/20/2016 12:43 PM EST Specimen requisition ordered. ??Separate Pathology report to follow David Dejesus MD PATHOLOGY/[place] [address] * Specimen to Pathology (surgical or derm) (03/20/2016 12:43 PM EST) AP Specimen 03/20/2016 12:4 3 PM EST 03/20/2016 12:43 PM EST Narrative [facility] - 03/20/2016 12:43 PM EST Specimen requisition ordered. ??Separate Pathology report to follow David Dejesus MD PATHOLOGY/CYTOLOGY ORDERABLES Performing Organization Address City/[facility]/[place] [address] * Specimen to Pathology (surgical or derm) (03/20/2016 12:43 PM EST) AP Specimen 03/20/2016 12:4 3 PM EST 03/20/2016 12:43 PM EST Narrative [facility] - 03/20/2016 12:43 PM EST Specimen requisition ordered. ??Separate Pathology report to follow David eDjesus MD PATHOLOGY/[place] [address] * Specimen to Pathology (surgical or derm) (03/20/2016 12:43 PM EST) AP Specimen 03/20/2016 12:4 3 PM EST 03/20/2016 12:43 PM EST Narrative [facility] - 03/20/2016 12:43 PM EST Specimen requisition ordered. ??Separate Pathology report to follow David Dejesus MD PATHOLOGY/[place] [address] * Specimen to Pathology (surgical or derm) (03/20/2016 12:43 PM EST) AP Specimen 03/20/2016 12:4 3 PM EST 03/20/2016 12:43 PM EST Narrative [facility] - 03/20/2016 12:43 PM EST Specimen requisition ordered. ??Separate Pathology report to follow David Dejesus MD PATHOLOGY/CYTOLOGY ORDERABLES Performing Organization Address [facility]/State/ZIP Co de Phone Number [facility] [place] [address] * COLONOSCOPY (03/20/2016 11:32 AM EST) COLONOSCOPY [facility] Endoscopy Procedure Date: 03/20/2016 11:32 AM ? Patient Name: Jennifer Irving ? Date of : 1960 ? Age: 55 ? Order #: [id number] ? Instrument Name: [id number] ? Procedure: ? Colonoscopy Indications: ? Screening for colorectal malignant ? neoplasm Providers: ? David Dejesus MD, Geronimo Joyner ? MD Valerie, Tapan Cohng RN, ? Theodora Farrell, Structural Steel Engineer Referring MD: ?David Blue MD Medicines: ? [...] (03/20/2016 11:31 AM EST) UPPER GI ENDOSCOPY [facility] Procedure Date: 03/20/2016 11:31 AM ? Patient Name: Jennifer Irving ? Date of : 1960 ? Age: 55 ? Order #: [id number] ? Instrument Name: [id number] ? Procedure: ? Upper GI endoscopy Indications: [...] care under the ? supervision of a LANGUAGES AND LITERATURE INSTRUCTOR was determined ? to be medically necessary [...] GENERAL SURGICAL ORD ERABLES Performing Organization Address [facility] de Phone Number [facility] * (ABNORMAL) POCT Glucose (03/20/2016 10:54 AM EST) Glucose, POC 243(H) 65 - 199 mg/dL [facility] Comment: Supplemental ranges: <140 mg/dL before meals <180 mg/dL all other times of the day Blood specimen (specimen) 03/20/2016 10:54 AM EST 03/20/2016 10:54 AM EST David Dejesus MD POINT OF CARE TEST ORDERABLES [facility] [place] [address] * (ABNORMAL) POCT Fingerstick Glucose (03/20/2016) Glucose, [...] CRNA) documented in this encounter Care Teams Floor Layer Relationship Specialty Start Date End Date David Blue MD [address] [place] [address] PCP - General 04/01/10 02/02/19 documented as of this encounter
--- OUTSIDE RECORDS SUMMARY | 2024-02-05 12:59 | XMS_ITS | Encounter Summary ---
Author Organization [facility] Address [facility] [place] [address] Care Team Providers Care Auctioneer Tobacco Name Role Phone David Blue MD Primary Care Provider [phone] Encounter Details Date Type Department Care Team (Latest Contact Info) Description 04/03/2014 10:08 AM EST - 04/03/2014 2:04 PM EST Hospital Encounter Gastroenterology at [facility] [place] [address] David Dejesus MD [facility] [place] [address] Discharge Disposition: Home Social History Tobacco Use [...] - 04/03/2014 12:48 PM EST Please call [phone], before 5pm with problems, questions or concerns, after 5pm call the Hospital at [phone] and ask to speak to the Ballroom Dance Instructor biodiesel plant operations engineer and the service vehicle operator will contactthat person for you. Discharge [...] Everywhere. * EGD (UPPER ENDOSCOPY) : POST-OP (GAMBIAN) documented in this encounter Medications at Time [...] PM EDT Office Visit Cardiology at [address] [address] Milagros Hernandez MD [facility] [place] [address] Scheduled Procedures Name Priority Associated Diagnoses Date/Ti [...] (04/03/2014 12:37 PM EST) Final Diagnosis ? [facility] ? Provider: ?? DAVID DEJESUS ??Pt. Name: ?? ISHAN IRVING ? Acc #: ?[id number] ?Pt. ? Col Date: ?? 04/03/2014 ?/Sex: [...] - Labeled/Fixativ e: Duodenal bulb, formalin. ? [facility] ? Provider: ?? DAVID DEJESUS ??Pt. Name: ?? ISHAN IRVING ? Acc #: ?[id number] ?Pt. ? Col Date: ?? 04/03/2014 ?/Sex: [...] 9:11 PM EST [facility] GI Biopsy 04/03/2014 12:3 7 PM EST 04/03/2014 12:37 PM EST GI Biopsy 04/03/2014 12:3 7 PM EST 04/03/2014 12:37 PM EST GI Biopsy 04/03/2014 12:3 7 PM EST 04/03/2014 12:37 PM EST GI Biopsy 04/03/2014 12:3 7 PM EST 04/03/2014 12:37 PM EST David Dejesus MD PATHOLOGY/CYTOLOGY ORDERABLES Performing Organization Address City/[facility]/ZIP Co de Phone Number [facility] [place] [address] * Specimen to Pathology (surgical or derm) (04/03/2014 12:37 PM EST) AP Specimen 04/03/2014 12:3 7 PM EST 04/03/2014 12:37 PM EST Narrative [facility] - 04/03/2014 12:37 PM EST Specimen requisition ordered. ??Separate Pathology report to follow David Dejesus MD PATHOLOGY/CYTOLOGY ORDERABLES Performing Organization Address City/[facility] Co de Phone Number [facility] * Specimen to Pathology (surgical or derm) (04/03/2014 12:37 PM EST) AP Specimen 04/03/2014 12:3 7 PM EST 04/03/2014 12:37 PM EST Narrative [facility] - 04/03/2014 12:37 PM EST Specimen requisition ordered. ??Separate Pathology report to follow David Dejesus MD PATHOLOGY/CYTOLOGY ORDERABLES [facility] * Specimen to Pathology (surgical or derm) (04/03/2014 12:37 PM EST) AP Specimen 04/03/2014 12:3 7 PM EST 04/03/2014 12:37 PM EST Narrative [facility] - 04/03/2014 12:37 PM EST Specimen requisition ordered. ??Separate Pathology report to follow David Dejesus MD PATHOLOGY/CYTOLOGY ORDERABLES Performing Organization Address [facility] Co de Phone Number [facility]Y BARNETT * Specimen to Pathology (surgical or derm) (04/03/2014 12:37 PM EST) AP Specimen 04/03/2014 12:3 7 PM EST 04/03/2014 12:37 PM EST Narrative [facility] - 04/03/2014 12:37 PM EST Specimen requisition ordered. ??Separate Pathology report to follow David Dejesus MD PATHOLOGY/CYTOLOGY ORDERABLES Performing Organization Address [facility] Co de Phone Number [facility]Y BARNETT * UPPER GI ENDOSCOPY (04/03/2014 12:06 PM EST) UPPER GI ENDOSCOPY [facility] Endoscopy Patient Name: Ishan Irving ? Procedure Date: 04/03/2014 12:06 PM ? [facility]: [id number] ? Date of : 1960 ? Age: 53 ? Order #: [id number] ? Procedure: ? Upper GI endoscopy Indications: [...] EST David Blue MD [facility] Performing Organization Address City/State/[facility] Co de Phone Number [employer] documented in this encounter Visit Diagnoses Not on filedocumented in this encounter Active and Recently Administered Medications Times are shown in EST. PRN Medication Order 04/01/2014 04/02/2014 04/03/2014 fentaNYL 50mcg/mL injection (CANCELED) ONCE PRN, Starting on 04/03/14 at 1211, Until Wed04/03/14 at 1326, Intra-Operative [...] RN) documented in this encounter Care Teams Auctioneer Tobacco Relationship Specialty Start Date End Date David Blue MD [address] [place] [address] PCP - General 04/01/10 02/02/19 documented as of this encounter
--- OUTSIDE RECORDS SUMMARY | 2024-02-05 12:59 | XMS_ITS | Encounter Summary ---
Author Organization [facility] Address [facility] [place] [address] Care Team Providers Care Machine Trimmer Name Role Phone David Blue MD Primary Care Provider [phone] Encounter Details Date Type Department Care Team (Late Contact Info) Description 08/05/2017 Orders [place] [phone] David Dejesus MD [facility] [place] [address] Social History Tobacco Use Types Packs/Day Years [...] PM EDT Office Visit Cardiology at [address] [phone] Milagros Hernandez MD [facility] [place] [address] Scheduled Procedures Name Priority Associated Diagnoses Date/Ti me EGD, UPPER GI ENDOSCOPY (WRV U 2.09) Peptic stricture of esophagus documented as of this encounter Visit Diagnoses Not on filedocumented in this encounter Care Teams Machine Trimmer Relationship Specialty Start Date End Date David Blue MD [address] [place] [address] PCP - General 04/01/10 02/02/19 documented as of this encounter
--- OUTSIDE RECORDS SUMMARY | 2024-02-05 12:59 | XMS_ITS | Encounter Summary ---
Author Organization [facility] [place] [address] Care Team Providers Care Survey Superintendent Name Role Phone David Blue MD Primary Care Provider [phone] Encounter Details Date Type Department Care Team (Late st Contact Info) Description 12/12/2012 Ancillary Procedure Radiology Library at [facility] [place] [address] Ana Gillespie APRN [address] [place] [address] Social History Tobacco Use Types [...] PM EDT Office Visit Cardiology at [address] [address] Milagros Hernandez MD [facility] [place] [address] Scheduled Procedures Name Priority Associated Diagnoses Date/Ti me EGD, UPPER GI ENDOSCOPY (WRV U 2.09) Peptic stricture of esophagus documented as of this encounter Procedures Procedure Name Priority Date/Time Associated Diagnosis Comments FILM LIBRARY STORAGE ONLY MAMMO Routine 12/12/2012 12:00 AM EDT documented in this encounter Results * Film Library- Storage Only Mammo (12/12/2012 12:00 AM EDT) Narrative [facility] - 02/13/2019 8:42 AM EDT This exam is auto-finalizing. It's purpose is for storage only. Ana Gillespie APRN IMM[facility]ison FILM LIBRARY ORD ERABLES [place], [place] documented in this encounter Visit Diagnoses Not on filedocumented in this encounter Care Teams Survey Superintendent Relationship Specialty Start Date End Date David Blue MD [address] [place] [address] PCP - General 04/01/10 02/02/19 documented as of this encounter
--- OUTSIDE RECORDS SUMMARY | 2024-02-05 12:59 | XMS_ITS | Encounter Summary ---
[place] [address] Care Team Providers Care Ict Project Manager Name Role Phone David Blue MD Primary Care Provider [phone] Reason for Visit * Reason Onset Date Comments Other 03/21/2014 Motility Studies Canceled Encounter Details Date Type Department Care Team (Late st Contact Info) Description 03/21/2014 [place] [address] Mya Garzon Other (Motility Studies [...] PM EDT Office Visit Cardiology at [address] [address] Milagros Hernandez MD [facility] [place] [address] Scheduled Procedures Name Priority Associated Diagnoses Date/Ti me EGD, UPPER GI ENDOSCOPY (WRV U 2.09) Peptic stricture of esophagus documented as of this encounter Visit Diagnoses Not on filedocumented in this encounter Care Teams Ict Project Manager Relationship Specialty Start Date End Date David Blue MD [address] [place] [address] PCP - General 04/01/10 02/02/19 documented as of this encounter
--- OUTSIDE RECORDS SUMMARY | 2024-02-05 12:59 | XMS_ITS | Encounter Summary ---
Author Organization [facility] Address [address] [place] [address] Care Team Providers Care Third Hand Name Role Phone David Blue MD Primary Care Provider [phone] Encounter Details Date Type Department Care Team (Late st Contact Info) Description 08/13/2022 Lab Requisition [facility] Pathology & Laboratory Medicine - [facility] [address] [place], [place] [address] Outr Resulting Lab, Provider Social History Tobacco [...] Antigen Detection Negative Negative 08/13/2022 23:31 EDT [facility] Urine URINE / Unknown 08/12/2022 1 8:12 EDT 08/13/2022 18:30 EDT Provider Outr Resulting Lab MICROBIOLOGY - GENERAL ORDERABLES [facility] [address] [place] [address] documented in this encounter Visit Diagnoses Not on filedocumented in this encounter Care Teams Third Hand Relationship Specialty Start Date End Date David Blue MD [address] [place] [address] PCP - General 07/15/09 documented as of this encounter
--- OUTSIDE RECORDS SUMMARY | 2024-02-05 12:59 | XMS_ITS | Encounter Summary ---
Author Organization [facility] [place] [address] Care Team Providers Care Welding Machine Operator Electroslag Name Role Phone David Blue MD Primary Care Provider [phone] Encounter Details Date Type Department Care Team (Late Contact Info) Description 07/06/2017 Telephone [place] [phone] Ami Chao RN Social History Tobacco Use [...] personal issue. Call returned to Jennifer at [phone]. Spoke to Rogelio. Explained that Dr. Dejesus [...] 4:00 PM EDT Office Visit Cardiology at [address] [address] Milagros Hernandez MD [facility] [place] [address] Scheduled Procedures Name Priority Associated Diagnoses Date/Ti me EGD, UPPER GI ENDOSCOPY (WRV U 2.09) Peptic stricture of esophagus documented as of this encounter Visit Diagnoses Not on filedocumented in this encounter Care Teams Welding Machine Operator Electroslag Relationship Specialty Start Date End Date David Blue MD [address] [place] [address] PCP - General 04/01/10 02/02/19 documented as of this encounter
--- OUTSIDE RECORDS SUMMARY | 2024-02-05 12:59 | XMS_ITS | Encounter Summary ---
[place] [address] Care Team Providers Care Embossing Machine Operator Name Role Phone David Blue MD Primary Care Provider [phone] Reason for Visit * Reason Onset Date Comments Prior Authorization 09/22/2017 Encounter Details Date Type Department Care Team (Late st Contact Info) Description 09/22/2017 Telephone [place] [address] Francoise Vides CMA GASTROENTEROLOGY DEPT Prior Authorization [...] Prior Authorization 4L Gastroenterology / [place] [address] Subscriber Insurance: [place] Medicaid Phone: . Fax: Physician: David Dejesus Return Pharmacy: [facility] Medication Requested: pantoprazole Strength: 40 mg Frequency: BID Disp.: 180 Refills: 3 Currently taking: no Diagnosis for this medication: Farrell's w/ dysplasia, and GERD ICD-10 code: Prior medications trialed in this patient: Pantoprazole QD, esomperazole, and omeprazole Medication: Outcome/Adverse Reactions: treatment failure Decision: approved Tracking number/Case number/Reference number: [id number] Effective date: Start: 09/22/2017 End: 09/22/2018 documented in this encounter Plan of Treatment Upcoming Encounters Date Type Department Care Team (Late st Contact Info) Description 03/10/2024 4:00 PM EDT Office Visit Cardiology at [address] [address] Milagros Hernandez MD [facility] [place] [address] Scheduled Procedures Name Priority Associated Diagnoses Date/Ti me EGD, UPPER GI ENDOSCOPY (WRV U 2.09) Peptic stricture of esophagus documented as of this encounter Visit Diagnoses Not on filedocumented in this encounter Care Teams Embossing Machine Operator Relationship Specialty Start Date End Date David Blue MD [address] [place] [address] PCP - General 04/01/10 02/02/19 documented as of this encounter
--- OUTSIDE RECORDS SUMMARY | 2024-02-05 12:59 | XMS_ITS | Encounter Summary ---
Author Organization [facility] [place] [address] Care Team Providers Care Manufacturing Specialist Name Role Phone David Blue MD Primary Care Provider [phone] Encounter Details Date Type Department Care Team (Late st Contact Info) Description 03/19/2016 Telephone [place] [phone] Angela Thompson Social History Tobacco Use Types Packs/Day Years Used Date Smoking Tobacco: Every Day Smokeless Tobacco: Never Sex and Gender Information Value Date Recorded Sex Assigned at Not on file Gender Identity Not on file Sexual Orientation Not on file documented as of this encounter Miscellaneous Notes * Telephone Encounter - Angela Palacios - 03/19/2016 9:36 AM EST Caller: pharmacy salesperson from [place], [place] Call for: MA's Reason for call: [...] PM EDT Office Visit Cardiology at [address] [phone] Milagros Hernandez MD [facility] [place] [address] Scheduled Procedures Name Priority Associated Diagnoses Date/Ti me EGD, UPPER GI ENDOSCOPY (WRV U 2.09) Peptic stricture of esophagus documented as of this encounter Visit Diagnoses Not on filedocumented in this encounter Care Teams Manufacturing Specialist Relationship Specialty Start Date End Date David Blue MD [address] [place] [address] PCP - General 04/01/10 02/02/19 documented as of this encounter
--- OUTSIDE RECORDS SUMMARY | 2024-02-05 12:59 | XMS_ITS | Encounter Summary ---
Author Organization [facility] [place] [address] Care Team Providers Care Used Car Make Ready Worker Name Role Phone David Blue MD Primary Care Provider [phone] Reason for Visit * Reason Onset Date Comments Prior Authorization 03/12/2016 Encounter Details Date Type Department Care Team (Late st Contact Info) Description 03/12/2016 Telephone Gastroenterology at [facility] [place] [address] Francoise Vides CMA GASTROENTEROLOGY DEPT Prior Authorization [...] PM EDT Office Visit Cardiology at [address] [address] Milagros Hernandez MD [facility] [place] [address] Scheduled Procedures Name Priority Associated Diagnoses Date/Ti me EGD, UPPER GI ENDOSCOPY (WRV U 2.09) Peptic stricture of esophagus documented as of this encounter Visit Diagnoses Not on filedocumented in this encounter Care Teams Used Car Make Ready Worker Relationship Specialty Start Date End Date David Blue MD [address] [place] [address] PCP - General 04/01/10 02/02/19 documented as of this encounter
--- OUTSIDE RECORDS SUMMARY | 2024-02-05 12:59 | XMS_ITS | Encounter Summary ---
Author Organization [facility] Address [address] [place] [address] Care Team Providers Care Land Clearer Name Role Phone David Blue MD Primary Care Provider [phone] Encounter Details Date Type Department Care Team (Late st Contact Info) Description 02/01/2023 Lab Requisition [facility] Pathology & Laboratory Medicine - [facility] [address] [place], [place] [address] Outr Resulting Lab, Provider Social History Tobacco [...] 11.7 See Note ??g/mL 02/01/2023 17:40 EDT [facility] Comment: NOTE: Reference Ranges: Trough: ??10.0 - 20.0 ug/mL Peak: ??25.0 - 50.0 ug/mL Blood VENOUS BLOOD / Unknown 02/01/2023 7:55 EDT 02/01/2023 17:12 EDT Provider Outr Resulting Lab CHEMISTRY & BLOOD GAS ORDERABLES Performing Organization Address City/State/[facility] Co de Phone Number [facility] [address] [place] [address] documented in this encounter Visit Diagnoses Not on filedocumented in this encounter Care Teams Land Clearer Relationship Specialty Start Date End Date David Blue MD [address] [place] [address] PCP - General 07/15/09 documented as of this encounter
--- OUTSIDE RECORDS SUMMARY | 2024-02-05 12:59 | XMS_ITS | Encounter Summary ---
[place] [address] Care Team Providers Care Client Development Manager Name Role Phone David Blue MD Primary Care Provider [phone] Reason for Visit * Reason Onset Date Comments Prior Authorization 12/17/2014 Encounter Details Date Type Department Care Team (Late st Contact Info) Description 12/17/2014 [place] [phone] Radha Urena Prior Authorization Social History Tobacco [...] for request: TYPE II DM Health plan: [place] Authorizing chemical sales representative name: BRYANT Faxed to health plan on: 12/17/14 Health plan decision: APPROVED Quantity approved: 4 FOR 30 DAYS Authorization number: [id number] Start date: 12/20/14 End date: 12/21/15 Patient notified? Pharmacy notified? documented in this encounter Plan of Treatment Upcoming Encounters Date Type Department Care Team (Late st Contact Info) Description 03/10/2024 4:00 PM EDT Office Visit Cardiology at [address] [phone] Milagros Hernandez MD [facility] [place] [address] Scheduled Procedures Name Priority Associated Diagnoses Date/Ti me EGD, UPPER GI ENDOSCOPY (WRV U 2.09) Peptic stricture of esophagus documented as of this encounter Visit Diagnoses Not on filedocumented in this encounter Care Teams Client Development Manager Relationship Specialty Start Date End Date David Blue MD [address] [place] [address] PCP - General 04/01/10 02/02/19 documented as of this encounter
--- OUTSIDE RECORDS SUMMARY | 2024-02-05 13:00 | XMS_ITS | Encounter Summary ---
Author Organization [facility] Address [address] [place] [address] Care Team Providers Care Inspector Machine Cut Glass Name Role Phone David Blue MD Primary Care Provider [phone] Encounter Details Date Type Department Care Team (Late st Contact Info) Description 07/11/2003 Results Only [facility] [place] - Maple conversion [address] [place] [address] Rock Samson MD [address] [place], [place] [address] Social History Tobacco Use Types Packs/Day Years [...] ? JENNIFER IRVING ? Accession #: ? [id number] ? : ? 1960 (Age: 43) ??F [...] ?Appendix with no pathologic features. Comment: ? Chief Revenue Officer sections of (A) have been reviewed at the intradepartmental consultation conference, ??A discrepancy between the laterality of the fallopian tube as indicated on the requisition form and the gross impression has been discussed with Dr. Samson' s nursing staff, who indicated that the excised fallopian tube was from the right side. (Dr. Narayan)/[facility] Document reviewed and electronically signed by: MARIA [...] A1 ?Anterior cervix A2 ?Posterior cervix A3-A6 ?Chief Revenue Officer sections of the anterior intramural mass A7 ?Anterior endomyometrium A8 ?Full thickness endomyometrium A9 ?Chief Revenue Officer sections ovary and cyst A10 ?Chief Revenue Officer sections fallopian tube and ovary A11 ?Ectocervix Received in formalin labeled Moffett and appendix is a 10.0 cm long x 0.6 cm diameter appendix with a moderate amount of mesoappendix. ??The serosa is unremarkable. ??Serial sectioning reveals a wall thickness that varies from 0.1 to 0.3 cm. ??No fecaliths are identified. ??[facility] representative sections are submitted as (B), including the resection margin, en face, and the distal tip, bisected. ?? (Dr. Lopez)/[facility] End of Report DULCE DAVIES 07/11/2003 07/11/2003 15: 14 EST Rock Samson MD PATHOLOGY ORDERABLES [facility] [address] [place] [address] documented in this encounter Visit Diagnoses Not on filedocumented in this encounter Care Teams Inspector Machine Cut Glass Relationship Specialty Start Date End Date David Blue MD [address] [place] [address] PCP - General 07/15/09 documented as of this encounter
--- OUTSIDE RECORDS SUMMARY | 2024-02-05 13:00 | XMS_ITS | Encounter Summary ---
Author Organization [facility] Address [address] [place] [address] Care Team Providers Care Branch General Manager Name Role Phone Unavailable Primary Care Provider Unavailabl e Encounter Details Date Type Department Care Team (Late st Contact Info) Description 07/12/2009 Results Only [facility] Laboratory Services - [facility] ([facility]) [address], [place] [address] Sergey Kraus, [address] [facility] [address] [place], [place] [phone] Social History Tobacco Use Types Packs/Day Years [...] ? IRVING, JENNIFER ? Accession #: ? [id number] ? : ? 1960 (Age: 49) ??F [...] and reactive ?? changes. ? Comment: ? Erp Pm portions of this case were reviewed at the intradepartmental consultation conference. ??(Dr. Urena)/[facility] ? Document reviewed and electronically signed by: [...] submitted entirely as (A). ? Received in [employer]'s fixative labelled Jennifer Irving and biopsy ? antrum is a 0.4 x 0.4 x 0.3 cm, kirby-pink soft tissue. ??The specimen is ? submitted entirely as (B). ? Received in [facility]'s fixative labelled Jennifer Irving and #3 biopsy ?? distal esophagus are three kirby-pink soft tissues, each averaging 0.3 x 0.3 x ?? 0.2 cm. ??The specimen is submitted entirely as (C). ? Received in [facility]'s fixative labelled Jennifer Irving and biopsy ? esophagus #4 are four kirby-pink soft tissues ranging in size from 0.2 x 0.2 x ?? 0.2 cm to 0.2 x 0.1 x 0.1 cm. ??The specimen is submitted entirely as (D). ? Received in [facility]'s fixative labelled Irving, Jennifer and biopsy ? proximal esophagus are two kirby-pink soft tissues ranging in size from 0.3 x 0.2 x 0.2 cm to 0.2 x 0.2 x 0.1 cm. ??The specimen is submitted entirely as (E). ? (Dr. Kearney)/[facility] ? End of Report ? DULCE DAVIES 07/12/2009 07/12/2009 19: 11 EST Sergey Kraus DO PATHOLOGY ORDER BENI [facility] [address] [place] [address] documented in this encounter Visit Diagnoses Not on filedocumented in this encounter
--- OUTSIDE RECORDS SUMMARY | 2024-02-05 13:00 | XMS_ITS | Encounter Summary ---
Author Organization [facility] Address [address] [place] [address] Care Team Providers Care Tactical Deception Plans Officer Name Role Phone David Blue MD Primary Care Provider [phone] Encounter Details Date Type Department Care Team (Late st Contact Info) Description 03/06/2021 Lab Requisition [facility] Pathology & Laboratory Medicine - [facility] [address] [place], [place] [address] Outr Resulting Lab, Provider Social History Tobacco [...] Surface Ag Negative Negative 03/07/20 10:41 EDT [facility] Hep B Surface Ab, Quantitative <3.1 See Note mIU/mL 03/07/2021 10:41 [facility] Comment: Reference Range for Hep B Surface Ab, Quant: Positive: >= 10.0 mIU/mL Negative: ??< 10.0 mIU/mL Patient is presumed to not be immune to infection with Hepatitis B Virus. Hep B Surface Ab, Qualitative Negative See Note 03/07/2021 10:41 T [facility] Comment: Reference Range for Hep B Surface Ab, Qual: Unvaccinated: ??Negative Vaccinated: ??Positive Hepatitis B Core Ab, Total Negative Negative 03/07/2021 10:41 EDT [facility] Hep C Antibody Negative Negative 03/07/2021 10:41 EDT [facility] Blood VENOUS BLOOD / Unknown 03/06/2021 7:10 EDT 03/06/2021 16:38 EDT Provider Outr Resulting Lab CHEMISTRY & BLOOD GAS ORDERABLES [facility] [address] [place] [address] documented in this encounter Visit Diagnoses Not on filedocumented in this encounter Care Teams Tactical Deception Plans Officer Relationship Specialty Start Date End Date David Blue MD [address] [place] [address] PCP - General 07/15/09 documented as of this encounter
--- OUTSIDE RECORDS SUMMARY | 2024-02-05 13:00 | XMS_ITS | Encounter Summary ---
Author Organization [facility] Address [address] [place] [address] Care Team Providers Care Metal Roofer Name Role Phone David Blue MD Primary Care Provider [phone] Encounter Details Date Type Department Care Team (Late st Contact Info) Description 12/23/2000 Results Only [facility] - Maple conversion [address] [place] [address] Rock Samson MD [address] [place], [place] [address] Social History Tobacco Use Types Packs/Day Years [...] ? JENNIFER IRVING ? Accession #: ? [id number] : ? 1960 (Age: 40) ??F ?Collect [...] Samson MD PATHOLOGY ORDERABLES Performing Organization Address City/State/[facility] Co de Phone Number [facility] [address] [place] [address] documented in this encounter Visit Diagnoses Not on filedocumented in this encounter Care Teams Metal Roofer Relationship Specialty Start Date End Date David Blue MD [address] [place] [address] PCP - General 07/15/09 documented as of this encounter
--- OUTSIDE RECORDS SUMMARY | 2024-02-05 13:00 | XMS_ITS | Encounter Summary ---
Author Organization [facility] Address [address] [place] [address] Care Team Providers Care Fun House Attendant Name Role Phone David Blue MD Primary Care Provider Encounter Details Date Type Department Care Team (Late st Contact Info) Description 10/30/2003 Results Only [facility] - Maple conversion [address] [place] [address] Sergey Kraus, DO [address] [facility] ,[address] [place] [address] Social History Tobacco Use Types [...] ? JENNIFER IRVING ? Accession #: ? [id number] ? : ? 1960 (Age: 43) ??F [...] specimen is entirely submitted as (C). ??(Dr. Haney-OFELIA)/[facility] End of Report [facility] 10/30/2003 10/30/2003 14: 43 EDT Sergey Kraus DO PATHOLOGY ORDER BENI [facility] [address] [place] [address] documented in this encounter Visit Diagnoses Not on filedocumented in this encounter Care Teams Fun House Attendant Relationship Specialty Start Date End Date David Blue MD [address] [place] [address] PCP - General 07/15/09 documented as of this encounter
--- OUTSIDE RECORDS SUMMARY | 2024-02-05 13:00 | XMS_ITS | Encounter Summary ---
Author Organization [facility] Address [address] [place] [address] Care Team Providers Care Molecular Technologist Name Role Phone David Blue MD Primary Care Provider [phone] Encounter Details Date Type Department Care Team (Late st Contact Info) Description 09/14/2007 Results Only [facility] - Maple conversion [address] [place] [address] Kassidy Villafana FNP [address] [place], [place] [phone] Social History Tobacco Use Types Packs/Day Years [...] ? JENNIFER IRVING ? Accession #: ? [id number] : ? 1960 (Age: 47) ??F ?Collect Date: ? 09/14/2007 Location: ? [facility] ? Receive Date: ? 09/16/2007 Provider: ?KASSIDY VILLAFANA CAMP DIRECTOR Copy to: ? Specimen/Source: ?ThinPrep Pap Test, Cervix/Endocervix, processed on 140 Proof ThinPrep Imaging System, with manual evaluation Last [...] Kassidy DUDLEYP PATHOLOGY ORDERABLES Performing Organization Address City/State/[facility] Co de Phone Number DULCE DAVIES [address] [place] [address] documented in this encounter Visit Diagnoses Not on filedocumented in this encounter Care Teams Molecular Technologist Relationship Specialty Start Date End Date David Blue MD [address] [place] [address] PCP - General 07/15/09 documented as of this encounter
--- OUTSIDE RECORDS SUMMARY | 2024-02-05 13:00 | XMS_ITS | Encounter Summary ---
Author Organization [facility] Address [address] [place] [address] Care Team Providers Care Corporate Concierge Name Role Phone David Blue MD Primary Care Provider [phone] Encounter Details Date Type Department Care Team (Late st Contact Info) Description 01/08/2006 Results Only [facility] - Maple conversion [address] [place] [address] Sergey Kraus, DO [address] [facility] ,[address] [place] [address] Social History Tobacco Use Types [...] ? JENNIFER IRVING ? Accession #: ? [id number] ? : ? 1960 (Age: 45) ??F [...] PATHOLOGY ORDER BENI [facility] [address] [place] [address] documented in this encounter Visit Diagnoses Not on filedocumented in this encounter Care Teams Corporate Concierge Relationship Specialty Start Date End Date David Blue MD [address] [place] [address] PCP - General 07/15/09 documented as of this encounter
--- OUTSIDE RECORDS SUMMARY | 2024-02-05 13:00 | XMS_ITS | Encounter Summary ---
Author Organization [facility] Address [address] [place] [address] Care Team Providers Care Mortar Worker Name Role Phone David Blue MD Primary Care Provider [phone] Encounter Details Date Type Department Care Team (Late st Contact Info) Description 04/28/2002 Results Only [facility] - Maple conversion [address] [place] [address] [place] [id number] Social History Tobacco Use Types Packs/Day Years [...] ? JENNIFER IRVING ? Accession #: ? [id number] : ? 1960 (Age: 41) ??F ?Collect [...] Lachelle HUNTER PATHOLOGY ORDERABLES Performing Organization Address City/State/[facility] Co de Phone Number DULCE DAVIES [address] [place] [address] documented in this encounter Visit Diagnoses Not on filedocumented in this encounter Care Teams Mortar Worker Relationship Specialty Start Date End Date David Blue MD [address] [place] [address] PCP - General 07/15/09 documented as of this encounter
--- OUTSIDE RECORDS SUMMARY | 2024-02-05 13:00 | XMS_ITS | Encounter Summary ---
Author Organization [facility] Address [address] [place] [address] Care Team Providers Care Sheet Metal Layout Mechanic Name Role Phone David Blue MD Primary Care Provider [phone] Encounter Details Date Type Department Care Team (Late st Contact Info) Description 11/28/2010 Results Only [facility] Laboratory Services - [facility] ([facility]) [address] [place], [place] [phone] Sergey Kraus, DO [address] [facility] [address] [place], [place] [phone] Social History Tobacco Use Types Packs/Day Years [...] ? IRVING, JENNIFER ? Accession #: ? [id number] ? : ? 1960 (Age: 50) ??F ? Collect Date: ? 11/28/2010 ? Location: ? [facility] ? Receive Date: ? 11/28/2010 ? Provider: SERGEY KRAUS DO ? Copy to: DAVID BLUE MD ? Final Pathologic Diagnosis: ? Colon, 20 cm, polyp, biopsy: ? - Hyperplastic polyp. ??See comment. ? Comment: ? Deeper levels have been examined. Take Down Inspector sections of this case have been reviewed [...] submitted in a single cassette. ( ? Josee/[facility] ? End of Report ? DULCE DAVIES 11/28/2010 11/28/2010 18: 52 EDT Sergey Kraus DO PATHOLOGY ORDER BENI [facility] [address] [place] [address] documented in this encounter Visit Diagnoses Not on filedocumented in this encounter Care Teams Sheet Metal Layout Mechanic Relationship Specialty Start Date End Date David Blue MD [address] [place] [address] PCP - General 07/15/09 documented as of this encounter
--- OUTSIDE RECORDS SUMMARY | 2024-02-05 13:00 | XMS_ITS | Continuity of Care Document ---
Author Organization [facility] Address [address] [place] [address] Phone Care Team Providers Care Business Development Representative Name Role Phone PCP, UNKNOWN Primary Care Provider DO Adenike Henley Emergency Provider Care Teams Patient Care Team Team Status: Active Member Role Status Dates UNKNOWN PCP Primary Care Provider Active Patient Care Team Team Status: Inactive Member Role Status Dates UNKNOWN PCP Primary Care Provider Active Start: September 19, 2023 End: September 19, 2023 Adenike Epstein DO Emergency Provider Active S tart: September 19, 2023 End: September 19, 2023 Chief Complaint and Reason for Visit Chief Complaint Gtube clogged, needs to have meds Allergies, Adverse Reactions, Alerts Allergen Type Severity Reaction Last Updated Verified Status metformin Adverse Reaction Unknown Gastrointestinal Upset September 19, 2023 11:21am Yes Active Social History Smoking Status Unknown if ever smoked Additional Data Assigned Sex Female Problems Active Problems Medical Problem Onset Date Status Gastrostomy malfunction Active Procedures Procedure Date Performed Status XR KUB portable September 19, 2023 1:09pm active Vital Signs Vital Reading Result Reference Range Collection Date/Time Height 152.4 cm September 19, 2023 2:04pm Weight 64.41 kg September 19, 2023 2:04pm Body Temperature 97.9 [degF] 97.6-99.6 September 18, 2 024 2:04pm Heart Rate 75 /min 60-90 September 19, 2023 2:04pm Respiratory rate 19 /min 12-24 September 18, 2 024 2:04pm Oxygen saturation by Pulse oximetry 100 % 95-10 0 September 19, 2023 2:04pm BP Systolic 106 mm[Hg] 90-140 May 12th, 2024 2:04pm BP Diastolic 78 mm[Hg] 60-90 September 19, 2023 2:04pm BMI (Body Mass Index) 27.7 kg/m2 September 182023 2:04pm Advance Directives Advance Directive Response Recorded Date/ Time Advance Directives No September 18 12:36pm Health Care Proxy No September 19, 2023 12:36pm Insurance Providers Guarantor Jennifer Irving Address [address] [facility] [address] Contact Info. Home Phone: Payer Policy Id Coverage Id Subscriber's Name Subscriber Id Effective Date Expiration Date Medicaid Out Of State [id number] Jennifer Irving [id number] Encounters Encounter Location(s) Arrival/Admit Date Discharge/Depart Date Provider(s) Departed Emergency [facility] September 19, 2023 11:08am September 19, 2023 2:07pm null Mental Status Observation Response Date Recorded Arousable To Normal for Patient September 18 2:01pm Level of Consciousness Awake September 19, 2023 2:01pm Alert September 19, 2023 2 :01pm Appropriate September 19, 2023 2 :01pm Follows Commands September 19, 2023 2:01pm Plan of Treatment Future Tests Future scheduled test information is unavailable Pending Tests Test Name Ordered Date Scheduled Date XR KUB portable September 19, 2023 1:09pm September 19, 2023 1:09pm Future Visits Future appointment information is unavailable Referrals to Other Providers Reason for Referral Referral Start Date Provider Provider Contact Information Provider Address UNKNOWN PCP Future Procedures Future procedure information is unavailable Future Medications Future medication information is unavailable Patient Instructions How to Use and Care for Your PEG Tube (DC) Goals Acute Goals Author Authored Date Continue to use your feeding tube as per established instructions. You have been provided with supplies to help facilitate care in delivery of medications and feedings until you can be seen and followed up with your interventional radiology provider. G-tube study showed the 16 Amharic feeding tube at in place at a depth of 8 cm. There is 4 cc of saline in the balloon. Follow-up with your provider when you get home to [place]. [facility] September 19, 2023 1:41pm
--- OUTSIDE RECORDS SUMMARY | 2024-02-05 13:00 | XMS_ITS | Encounter Summary ---
Author Organization [facility] Address [address] [place] [address] Care Team Providers Care Medication Tech Name Role Phone David Blue MD Primary Care Provider [phone] Encounter Details Date Type Department Care Team (Late st Contact Info) Description 05/08/2003 Results Only [facility] - Maple conversion [address] [place] [address] Rock Samson MD [address] [place], [place] [address] Social History Tobacco Use Types Packs/Day Years [...] Samson MD PATHOLOGY ORDERABLES Performing Organization Address City/State/[facility] Co de Phone Number DULCE DAVIES [address] [place] [address] documented in this encounter Visit Diagnoses Not on filedocumented in this encounter Care Teams Medication Tech Relationship Specialty Start Date End Date David Blue MD [address] [place] [address] PCP - General 07/15/09 documented as of this encounter
== END 2024-02-05 12:18 | disposition home or self-care (01) ==
LOC: ER 12:40
PROVIDERS: Emergency Provider Nurse Practitioner Family; PCP Nurse Practitioner Family
DX: T85.528A Displacement of other gastrointestinal prosthetic devices, implants and grafts, initial encounter (principal)
CPT/HCPCS: 43762

== ENCOUNTER 2024-02-29 15:06 | Inpatient (IN) | payer MEDICAID, SELFPAY ==
[2024-02-29] VITALS (45 sets, daily range): BP systolic 112–165; BP diastolic 36–88; PULSE 62–82; RESP 12–23; TEMP 36.3–36.6; O2SAT 87–100
--- NOTE | 2024-02-29 15:00 | RT.EKG_ITS ---
APPROVED REPORT Exam: Resting ECG Reason for Exam: Fall Patient Location: E HR:68 bpm ECG Measurements Heart Rate 68 AXIS [place] 146 P 77 QRSd 82 QRS 70 QT 393 T 41 QTc 420 Conclusion Sinus rhythm. 68 no stemi
--- NOTE | 2024-02-29 15:15 | DI.RAD_ITS ---
Exam(s) XR HIP RT COMPLETE AP PELVIS EXAM: XR HIP RT COMPLETE AP PELVIS CLINICAL HISTORY: right hip pain. TECHNIQUE: 2D digital imaging was performed of the right hip. Three images were obtained. AP pelvis and lateral right hip views were obtained. COMPARISON: CR XR HIP LT COMPLETE AP PELVIS from 02/15/2023 FINDINGS: BONES: There is an acute impacted subcapital fracture of the right femur. No bony destructive lesion is seen. JOINTS: No dislocation present. The patient has a left hip prosthesis. SOFT TISSUE: Normal. IMPRESSION: Acute mildly impacted subcapital fracture of the right femur. DATA REPOSITORY: RADIATION DOSE DELIVERED:
--- NOTE | 2024-02-29 15:15 | DI.CT_ITS ---
Exam(s) CT HEAD CERVICAL SPINE WO EXAM: CT HEAD CERVICAL SPINE WO CLINICAL HISTORY: fall. TECHNIQUE: Imaging Protocol: Axial computed tomography images with coronal and sagittal reformatted images were created and reviewed COMPARISON: CT CT HEAD WO from 08/13/2022 FINDINGS: CT Head: Ventricles and Extra axial spaces: Normal in size and morphology for the patient's age. Hemorrhage: None. Cerebral parenchyma: There is no evidence of an acute territorial infarct or mass effect. Midline shift: None. Brainstem/Cerebellum: Normal. Calvarium: Normal. Visualized Paranasal sinuses/Mastoids: Clear. Soft Tissues: Unremarkable. CT Cervical Spine: Bones: No acute fracture or subluxation. Age-appropriate degenerative changes are seen in the spine. Soft Tissues: There is a 6 mm nodule in the left lobe of the thyroid gland. No follow-up is recommen ded. Lung Apices: Clear. IMPRESSION: 1. No acute intracranial process. 2. No acute fracture or subluxation in the cervical spine. RADIATION DOSE DELIVERED: 1,209.19mGy.cm Total DLP DATA REPOSITORY: All CT scans at this facility are submitted to the National Radiology Data Registry (NRDR) Dose Index Registry (DIR) with the [employer] (ACR). RADIATION OPTIMIZATION: All CT scans at this facility use at least one of these dose optimization te chniques: automated exposure control; mA and/or kV adjustment per patient size (includes targeted exa ms where dose is matched to clinical indication); or iterative reconstruction.
[2024-02-29 17:48] LABS: Abs Immature Grans 0.07 10^3/uL (0.0-0.06); Absolute Basophil Count 0.03 10^3/uL (0.0-0.2); Absolute Eosinophil Count 0.17 10^3/uL (0.0-0.7); Absolute Lymphocyte Count 1.69 10^3/uL (1.2-3.4); Absolute Monocyte Count 0.73 10^3/uL (0.1-0.8); Absolute Neutrophil Count 5.86 10^3/uL (1.2-6.7); Basophils % 0.4 %; HCT 40.8 % (36.0-46.0); HGB 13.2 g/dL (11.2-15.7); Immature Grans % 0.8 %; Lymphocytes % 19.8 %; MCH 29.4 pg (27.0-33.0); MCHC 32.4 % (32.0-36.0); MCV 91 fL (80-95); MPV 11.5 fL (8.0-11.0); Monocytes % 8.5 %; Neutrophils % 68.5 %; Platelet Count 119 10^3/uL (130-400); RBC 4.49 10^6/uL (3.93-5.22); RDW 13.7 % (11.7-14.6); RDW-SD 46.3 fL; WBC 8.55 10^3/uL (4.4-10.8)
[2024-02-29 17:57] LABS: INR 0.9 (0.9-1.1); Prothrombin Time 9.5 sec (9.1-11.1)
[2024-02-29 18:05] LABS: ALT 19 U/L (14-59); AST 15 U/L (15-37); Albumin 2.7 g/dL (3.4-5.0); Alkaline Phosphatase 108 U/L (46-116); Anion Gap 4.8 mmol/L (3-11); BUN 7 mg/dL (7-18); CO2 32.2 mmol/L (21.0-32.0); CREATININE 0.8 mg/dL (0.55-1.02); Chloride 107 mmol/L (98-107); Creatine Kinase 24 U/L (26-192); Estimated GFR 82.74 (mL/min/1.73m2); Glucose 131 mg/dL (74-106); Potassium 3.7 mmol/L (3.5-5.1); Sodium 144 mmol/L (136-145); Total Protein 6.1 g/dL (6.4-8.2)
[2024-02-29] MEDS: ACETAMINOPHEN 1,000 MG/100 ML BTL 400 MG IVPB (18:06)
[2024-02-29] MEDS: MORPHine 4 MG/ML SYR IVP ×2 (18:07→19:52)
[2024-02-29] MEDS: Ondansetron 4 MG/2 ML VIAL IVP ×2 (18:08→20:29)
--- OUTSIDE RECORDS SUMMARY | 2024-02-29 19:23 | XMS_ITS | Encounter Summary ---
Author Organization [facility] Address [facility] [place] [address] Care Team Providers Care Crown Perforator Operator Name Role Phone Ana Gillespie VAUGHN Primary Care Provider [phone] Reason for Referral * Consultation (Routine) - Closed Specialty Diagnoses / Procedures Referred By Esperanza rodríguez Referred To Contact Thoracic Surgery Diagnoses Peptic stricture of esophagus Peptic stricture of esophagus David Dejesus MD [facility] [place] [address] Geronimo Mojica MD [facility] [place] [address] Referral ID Status Reason Start Date Expiration Date V isits Requested Visits Authorized [id number] Closed Consult, Test & Treat 11/05/2023 11/04/2024 1 1 Encounter Details Date Type Department Care Team (Late st Contact Info) Description 11/05/2023 Orders Only Gastroenterology at [place] [phone] David Dejesus MD [facility] [place] [address] Peptic stricture of esophagus Social History Tobacco [...] PM EDT Office Visit Cardiology at [address] [phone] Milagros Hernandez MD [facility] [place] [address] Scheduled Procedures Name Priority Associated Diagnoses Date/Ti [...] esophagus documented in this encounter Care Teams Crown Perforator Operator Relationship Specialty Start Date End Date Ana Gillespie APRN [address] [place] [address] PCP - General Family Medicine 02/03/19 documented as of this encounter
--- OUTSIDE RECORDS SUMMARY | 2024-02-29 19:23 | XMS_ITS | Encounter Summary ---
Author Organization [facility] Address [facility] [place] [address] Care Team Providers Care Dye Padder Operator Name Role Phone Ana Gillespie APRN Primary Care Provider [phone] Encounter Details Date Type Department Care Team (Latest Contact Info) Description 11/17/2023 8:40 AM EDT Office Visit Cardiology at [address] [phone] Milagros Hernandez MD [facility] [place] [address] Stress-induced cardiomyopathy Social History Tobacco Use Types [...] original note were not included. [facility] [place] [address] [address] CARDIOLOGY OUTPATIENT NOTE PRIMARY CARE PROVIDER: Ana [...] glucose meter kit. 1 each 0 Insulin [place], Disposable, (BD INSULIN PEN NEEDLE UF MINI) 31 x 3/16 Need[address] [facility].(Non-Drug; Combo Route) route 3 times daily as [...] for this, planning to continue this therapy. Jantet underwent repeat TTE in November 2023 which [...] dilations and unfortunately was admitted to [facility] at the end of February shortly [...] April, she had another admission to [facility] in June 2023 for COPD which was complicated by a Type II NSTEMI. The vector control assistant office automation clerk here was contacted and recommended a TTE, [...] is no evidence that providers at [facility] reached back out to Cardiology here [...] bradycardia, low voltage, otherwise normal TTE ([facility], 11/20/22): TTE (08/19/22): Interpretation Summary -Left [...] obtain her echo from June at [facility] which I do not have the [...] recent echocardiogram results from June at [facility] - Patient to reach out once [...] next visit. Milagros Hernandez MD Cardiovascular Medicine [facility] 11/17/2023 documented in this encounter Plan of Treatment Upcoming Encounters Date Type Department Care Team (Late st Contact Info) Description 03/10/2024 4:00 PM EDT Office Visit Cardiology at [address] [phone] [facility] [place] [address] Scheduled Procedures Name Priority Associated Diagnoses Date/Ti me EGD, UPPER GI ENDOSCOPY (WRV U 2.09) Peptic stricture of esophagus documented as of this encounter Visit Diagnoses Diagnosis Stress-induced cardiomyopathy Takotsubo syndrome documented in this encounter Care Teams Dye Padder Operator Relationship Specialty Start Date End Date Ana Gillespie APRN [address] [place] [address] PCP - General Family Medicine 02/03/19 documented as of this encounter
--- OUTSIDE RECORDS SUMMARY | 2024-02-29 19:23 | XMS_ITS | Encounter Summary ---
Author Organization [facility] Address [facility] [place] [address] Care Team Providers Care Event Planner Name Role Phone Ana Gillespie APRN Primary Care Provider [phone] Encounter Details Date Type Department Care Team (Late st Contact Info) Description 10/07/2023 Orders [place] [phone] David Dejesus MD [facility] [place] [address] Social History Tobacco Use Types Packs/Day Years [...] 4:00 PM EDT Office Visit Cardiology at [address] [phone] Milagros Hernandez MD [facility] [place] [address] Scheduled Procedures Name Priority Associated Diagnoses Date/Ti me EGD, UPPER GI ENDOSCOPY (WRV U 2.09) Peptic stricture of esophagus documented as of this encounter Visit Diagnoses Not on filedocumented in this encounter Care Teams Event Planner Relationship Specialty Start Date End Date Ana Gillespie APRN [address] [place] [address] PCP - General Family Medicine 02/03/19 documented as of this encounter
--- OUTSIDE RECORDS SUMMARY | 2024-02-29 19:23 | XMS_ITS | Encounter Summary ---
Author Organization [facility] Address [facility] [place] [address] Care Team Providers Care Teacher Of The Sight Impaired Name Role Phone Ana Gillespie APRN Primary Care Provider [phone] Encounter Details Date Type Department Care Team (Late st Contact Info) Description 10/07/2023 11:15 AM EDT - 10/07/2023 12:00 PM EDT [place] [address] David Dejesus MD [facility] [place] [address] EGD-ESOPHOGEAL DILATATION OVER GUIDE WIRE (WRVU 2.91) [...] the day after the procedure, use an uksv-wsx-nqxzscd spray to numb your throat. Sucking on [...] occurs, please contact your Doctor. Please call [phone] before 8pm Mon-Fri with problems, questions or concerns. If you call after 8pm or on weekends, call the Hospital at [phone] and ask to speak to the Rotary Helper internal control analyst and the powerhouse operator will contact that person for you. [...] any problems. Where can you learn more? [facility] View your After Visit Summary and more online at [email or web address] If you would like to provide feedback about your hospital experience, please call the Office of Patient and Family Relations at . If you have received this After Visit Summary in error, please immediately return it in person to the department, or notify the [facility] Privacy Office by calling toll free at between the hours of 8AM and 5PM to arrange for our retrieval of the documents at no cost to you. Content Version: 12.2 ?? 4877-5471 [employer]. Care instructions adapted under license by [facility]. If you have questions about a medical condition or this instruction, always ask your healthcare professional. [employer] disclaims any warranty or liability for your [...] the day after the procedure, use an gyzn-qaj-dblijyi spray to numb your throat. Sucking on [...] occurs, please contact your Doctor. Please call [phone] before 8pm Mon-Fri with problems, questions or concerns. If you call after 8pm or on weekends, call the Hospital at [phone] and ask to speak to the Rotary Helper internal control analyst and the powerhouse operator will contact that person for you. [...] any problems. Where can you learn more? [facility] View your After Visit Summary and more online at [email or web address] If you would like to provide feedback about your hospital experience, please call the Office of Patient and Family Relations at . If you have received this After Visit Summary in error, please immediately return it in person to the department, or notify the [facility] Privacy Office by calling toll free at between the hours of 8AM and 5PM to arrange for our retrieval of the documents at no cost to you. Content Version: 12.2 ?? [id number] [employer]. Care instructions adapted under license by [facility]. If you have questions about a medical condition or this instruction, always ask your healthcare professional. [employer] disclaims any warranty or liability for your [...] meter kit. 1 each 0 12/14/2014 Insulin [place], Disposable, (BD INSULIN PEN NEEDLE UF MINI) [...] glucose meter kit. 1 each 0 Insulin [place], Disposable, (BD INSULIN PEN NEEDLE UF MINI) [...] PM EDT Office Visit Cardiology at [address] [phone] Milagros Hernandez MD [facility] [place] [address] Scheduled Procedures Name Priority Associated Diagnoses Date/Ti me EGD, UPPER GI ENDOSCOPY (WRV U 2.09) Peptic stricture of esophagus documented as of this encounter Procedures Procedure Name Priority Date/Time Associated Diagnosis Comments Up Gi Endoscopy, Jes Cervantes Guide (71726) 10/07/2023 10:44 AM EDT Peptic stricture of esophagus UPPER GI ENDOSCOPY Routine 10/07/2023 10 :34 AM EDT documented in this encounter Results * UPPER GI ENDOSCOPY (10/07/2023 10:34 AM EDT) UPPER GI ENDOSCOPY [facility] Endoscopy Procedure Date: 10/07/2023 10:34 AM ? Patient Name: Jennifer Irving ? Date of : 1960 ? Age: 63 ? Order #: [id number] ? Instrument Name: [id number] ? Procedure: ? Upper GI endoscopy Indications: [...] RN) documented in this encounter Care Teams Teacher Of The Sight Impaired Relationship Specialty Start Date End Date Ana Gillespie APRN [address] [place] [address] PCP - General Family Medicine 02/03/19 documented as of this encounter
--- OUTSIDE RECORDS SUMMARY | 2024-02-29 19:23 | XMS_ITS | Encounter Summary ---
Author Organization [facility] Address [facility] [place] [address] Care Team Providers Care Form Setter Steel Pan Forms Name Role Phone Ana Gillespie APRN Primary Care Provider [phone] Encounter Details Date Type Department Care Team (Late st Contact Info) Description 11/05/2023 8:36 AM EDT Anesthesia [place] [phone] Daryl Carmona MD [facility] [place] [address] Anesthesia Record Procedure Summary Procedure Name Responsible [...] Cooper, 10/14/23 Tube exchange 16 fr, MD Hart; 02/07/24 G-tube exchange 16 fr. ROSLYN Moran 03/10/23 1618 by Sergey Jordan RN PIV 11/05/23; 0745; qfia-ddj-ohuyuj catheter system; 22 gauge, 1 in length; [...] Procedure Summary Date: 11/05/23 Room / Location: [facility] ENDO 2 / [facility] ENDOSCOPY Anesthesia Start: 36 Anesthesia Stop: 909 Procedures: EGD-DILATATION BY SOUND OR BOUGIE, SINGLE OR MULTIPLE PASSES (WRVU 1.28) (Trunk) EGD-ESOPHOGEAL DILATATION OVER GUIDE WIRE (WRVU 2.91) Diagnosis: Peptic stricture of esophagus (petic stricture - follow-up dilation in 2-3 weeks) Surgeons: David Dejesus MD Responsible Provider: Daryl Carmona MD Anesthesia Type: general ASA Status: 2 All Anesthesia Providers: Anesthesiologist: Daryl Carmona MD FOOD COUNSELOR: Annie Alfonso CRNA Vitals Value Taken Time BP 125/64 11/05/23 0920 Temp Pulse Resp 16 11/05/23 0902 SpO2 97 % 11/05/23 0940 Pain Level 0 11/05/23 0902 Vitals shown include unfiled device data. Patient Location: PACU/[facility] Level of Consciousness: Conscious but Sleepy [...] y.o. female. Procedure(s): EGD, [facility] Patient Active Problem List Diagnosis [...] G-Tube Check/Change 11/27/[address] [facility] INTERVENTIONL RAD ??? IR G-TUBE CHECK/CHANGE 03/10/2023 IR G-Tube Check/Change 03/10/2023 Geronimo Chambers, MH INTERVENTIONL RAD ??? IR G-TUBE CHECK/CHANGE 04/06/2023 IR G-Tube Check/Change 04/06/[address] [facility] INTERVENTIONL RAD ??? IR G-TUBE CHECK/CHANGE 05/09/2023 IR G-Tube Check/Change [facility] INTERVENTIONL RAD ??? IR G-TUBE CHECK/CHANGE 07/09/2023 IR G-Tube Check/Change [facility] INTERVENTIONL RAD ??? IR G-TUBE CHECK/CHANGE 09/17/2023 IR G-Tube Check/Change 09/17/2023 Hang Cooper, ROSLYN [facility] INTERVENTIONL RAD ??? IR G-TUBE CHECK/CHANGE 10/14/2023 IR G-Tube Check/Change 10/14/[address] [facility] INTERVENTIONL RAD ??? IR G-TUBE PLACEMENT 09/11/2022 IR G-Tube Placement 09/11/[address] [facility] INTERVENTIONL RAD ??? IR SUTURE RELEASE 09/25/2022 IR Suture Release 09/25/[address] [facility] INTERVENTIONL RAD ??? PERCUTANEOUS GASTROSTOMY N/A 09/11/2022 PERCUTANEOUS GASTROSTOMY performed by Aiden Floers MD at [facility] CATY ??? PRO COLONOSCOPY, BIOPSY N/A 03/20/2016 COLONOSCOPY FLEXIBLE, WITH BX performed by David Dejesus MD at [facility] ENDOSCOPY ??? PRO COLONOSCOPY, DIAGNOSTIC N/A 03/01/2020 COLONOSCOPY, DIAGNOSTIC performed by David Dejesus MD at [facility] ENDOSCOPY ??? PRO ENDOSCOPIC US EXAM, ESOPH N/A 03/31/2022 UPPER EUS- ENDOSCOPIC ULTRASOUND performed by David Djeesus MD at [facility] ENDOSCOPY ??? PRO UP GI ENDOSCOPY, BALL DIL, 30MM N/A 12/24/2022 EGD,WITH DILATION ESOPHAGUS WITH BALLOON,< 30 MM (WRVU 2.67) performed by David Dejesus [facility] ENDOSCOPY ??? PRO UP GI ENDOSCOPY, BALL DIL, 30MM N/A 01/12/2023 EGD,WITH DILATION ESOPHAGUS WITH BALLOON,< 30 MM (WRVU 2.67) performed by David Dejesus [facility] ENDOSCOPY ??? PRO UP GI ENDOSCOPY, BALL DIL, 30MM N/A 02/26/2023 EGD,WITH DILATION ESOPHAGUS WITH BALLOON,< 30 MM (WRVU 2.67) performed by David Dejesus [facility] ENDOSCOPY ??? PRO UP GI ENDOSCOPY, BALL DIL, 30MM N/A 03/16/2023 EGD,WITH DILATION ESOPHAGUS WITH BALLOON,< 30 MM (WRVU 2.67) performed by David Dejesus [facility] ENDOSCOPY ??? PRO UP GI ENDOSCOPY, BALL DIL, 30MM N/A 03/30/2023 EGD,WITH DILATION ESOPHAGUS WITH BALLOON,< 30 MM (WRVU 2.67) performed by David Dejesus [facility] ENDOSCOPY ??? PRO UP GI ENDOSCOPY, BALL DIL, 30MM N/A 04/30/2023 EGD,WITH DILATION ESOPHAGUS WITH BALLOON,< 30 MM (WRVU 2.67) performed by David Dejesus [facility] ENDOSCOPY ??? PRO UP GI ENDOSCOPY, BALL DIL, 30MM N/A 06/01/2023 EGD,WITH DILATION ESOPHAGUS WITH BALLOON,< 30 MM (WRVU 2.67) performed by David Dejesus [facility] ENDOSCOPY ??? PRO UP GI ENDOSCOPY, BALL DIL, 30MM N/A 08/02/2023 EGD,WITH DILATION ESOPHAGUS WITH BALLOON,< 30 MM (WRVU 2.67) performed by David Dejesus [facility] ENDOSCOPY ??? PRO UP GI ENDOSCOPY, DILATN W GUIDE N/A 10/07/2023 EGD-ESOPHOGEAL DILATATION OVER GUIDE WIRE (WRVU 2.91) performed by David Dejesus MD at [facility] ENDOSCOPY ??? PRO UPPER GI ENDOSCOPY, BIOPSY N/A 04/03/2014 UPPER GASTROINTESTINAL ENDOSCOPY,WITH BIOPSY SINGLE OR MULTIPLE performed by David Dejesus [facility] ENDOSCOPY ??? PRO UPPER GI ENDOSCOPY, BIOPSY N/A 03/20/2016 EGD WITH BIOPSY performed by David Dejesus MD at [facility] ENDOSCOPY ??? PRO UPPER GI ENDOSCOPY, BIOPSY N/A 11/22/2018 EGD WITH BIOPSY (WRVU 2.49) performed by David Dejesus MD at [facility] ENDOSCOPY ??? PRO UPPER GI ENDOSCOPY, BIOPSY N/A 03/01/2020 UPPER GASTROINTESTINAL ENDOSCOPY,WITH BIOPSY SINGLE OR MULTIPLE (WRVU 2.49) performed by David Dejesus MD at [facility] ENDOSCOPY ??? PRO UPPER GI ENDOSCOPY, BIOPSY N/A 09/23/2021 EGD WITH BIOPSY (WRVU 2.49) performed by David Dejesus MD at [facility] ENDOSCOPY ??? PRO UPPER GI ENDOSCOPY, BIOPSY N/A 03/31/2022 EGD WITH BIOPSY (WRVU 2.49) performed by David Dejesus MD at [facility] ENDOSCOPY ??? PRO UPPER GI ENDOSCOPY, BIOPSY N/A 07/03/2022 EGD WITH BIOPSY (WRVU 2.49) performed by David Dejesus MD at [facility] ENDOSCOPY ??? PRO UPPER GI ENDOSCOPY, DIAGNOSTIC N/A 04/03/2014 EGD, UPPER GI ENDOSCOPY performed by David Dejesus MD at [facility] ENDOSCOPY ??? PRO UPPER GI ENDOSCOPY, DIAGNOSTIC N/A 03/01/2020 EGD, UPPER GI ENDOSCOPY performed by David Dejesus MD at [facility] ENDOSCOPY ??? PRO UPPER GI ENDOSCOPY, DIAGNOSTIC N/A 09/09/2022 EGD, UPPER GI ENDOSCOPY (WRVU 2.09) performed by Ayo Russ MD at [facility] MAIN OR Social History Tobacco Use [...] there has been no significant change. Planning [facility] - Other Informed Consent: Anesthetic plan and risks discussed with patient. Use of blood products discussed with patient who consented to blood products. Plan discussed with FOOD COUNSELOR. Anesthesia Screening documented in this encounter Plan of Treatment Upcoming Encounters Date Type Department Care Team (Late st Contact Info) Description 03/10/2024 4:00 PM EDT Office Visit Cardiology at [address] [phone] Milagros Hernandez MD [facility] [place] [address] Scheduled Procedures Name Priority Associated Diagnoses Date/Ti [...] mg documented in this encounter Care Teams Form Setter Steel Pan Forms Relationship Specialty Start Date End Date Ana Gillespie APRN [address] [place] [address] PCP - General Family Medicine 02/03/19 documented as of this encounter
--- OUTSIDE RECORDS SUMMARY | 2024-02-29 19:23 | XMS_ITS | Encounter Summary ---
Author Organization [facility] [place] [address] Care Team Providers Care Venetian Blind Maker Name Role Phone Ana Gillespie VAUGHN Primary Care Provider Reason for Referral * Diagnostic Test (Routine) - Closed Specialty Diagnoses / Procedures Referred By Esperanza rodríguez Referred To Contact Radiology Diagnoses Problem with gastrostomy tube Farrell's esophagus with high grade dysplasia Farrell's esophagus with low grade dysplasia Procedures IR G-Tube Check/Change Hang Cooper PA [facility] [place] [address] [facility] [place] [address] Referral ID Status Reason Start Date Expiration Date V isits Requested Visits Authorized [id number] Closed Specialty Service Requested 09/23/2023 03/25/2025 1 1 * Diagnostic Test (Routine) - Closed Specialty Diagnoses / Procedures Referred By Esperanza rodríguez Referred To Contact Radiology Diagnoses Problem with gastrostomy tube 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 Procedures IR Site Check In Recovery Room Hang Cooper PA [facility] [place] [address] [place] [address] Referral ID Status Reason Start Date Expiration Date V isits Requested Visits Authorized [id number] Closed Specialty Service Requested 09/20/2023 03/22/2025 1 1 Reason for Visit * Diagnostic Test (Routine) - Closed Specialty Diagnoses / Procedures Referred By Esperanza rodríguez Referred To Contact Radiology Diagnoses Problem with gastrostomy tube 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 Procedures IR Site Check In Recovery Room Hang Cooper PA [facility] [place] [address] [facility] [place] [address] Referral ID Status Reason Start Date Expiration Date V isits Requested Visits Authorized [id number] Closed Specialty Service Requested 09/20/2023 03/22/2025 1 1 Encounter Details Date Type Department Care Team (Latest Contact Info) Description 09/23/2023 9:47 AM EDT - 09/23/2023 11:59 PM EDT Hospital [place] [address] Geronimo Chambers, [facility] [place] [address] Problem with gastrostomy tube; Neuroleptic-induced parkinsonism; Farrell's [...] meter kit. 1 each 0 12/14/2014 Insulin [place], Disposable, (BD INSULIN PEN NEEDLE UF MINI) 31 x 07/23 NeedleIndications:Josefina betes mellitus type 2, uncontrolled 1 Device by [facility] [place] [facility].(Non-Drug; Combo Route) route 3 times daily as needed. 100 each 11 12/13/2014 documented as of this encounter Progress Notes * Hang Cooper PA - 09/23/2023 12:56 PM EDT Interventional Radiology - Progress Note Patient Name: Jennifer Irving : 1960 MR#: [id number] Seen in IR recovery in followup to G-tube issues. Exchanged by IR on 09/16 due to occlusion. [place]ed to [place] where tube could not be flushed. Exchanged [...] daily. 180 tablet 3 Blood Sugar Diagnostic ([facility] ULTRA TEST) Strip 1 each by Other [...] glucose meter kit. 1 each 0 Insulin [place], Disposable, (BD INSULIN PEN NEEDLE UF MINI) 31 x 3/16 Needle 1 Device by [facility].(Non-Drug; Combo Route) route [...] [facility] IR G-TUBE CHECK/CHANGE 03/10/2023 IR G-Tube Check/Change 03/10/2023 Geronimo Chambers, [facility] INTERVENTIONL RAD IR G-TUBE CHECK/CHANGE 04/06/2023 IR G-Tube Check/Change 04/06/2023 Gavin Carrillo MD [facility] INTERVENTIONL RAD IR G-TUBE CHECK/CHANGE 05/09/2023 IR G-Tube Check/Change [facility] INTERVENTIONL RAD IR G-TUBE CHECK/CHANGE 07/09/2023 IR G-Tube Check/Change [facility] INTERVENTIONL RAD IR G-TUBE CHECK/CHANGE 09/17/2023 IR G-Tube Check/Change 09/17/2023 Hang Cooper PA [facility] INTERVENTIONL RAD IR G-TUBE PLACEMENT 09/11/2022 IR G-Tube Placement 09/11/2022 Moustapha Hart MD [facility] INTERVENTIONL RAD IR SUTURE RELEASE 09/25/2022 IR Suture Release 09/25/2022 Yoselin Ghosh PA [facility] INTERVENTIONL RAD PERCUTANEOUS GASTROSTOMY N/A 09/11/2022 PERCUTANEOUS GASTROSTOMY performed by Aiden Flores MD at [facility] CATY PRO COLONOSCOPY, BIOPSY N/A 03/20/2016 COLONOSCOPY FLEXIBLE, WITH BX performed by David Dejesus MD at [facility] ENDOSCOPY PRO COLONOSCOPY, DIAGNOSTIC N/A 03/01/2020 COLONOSCOPY, DIAGNOSTIC performed by David Dejesus MD at [facility] ENDOSCOPY PRO ENDOSCOPIC US EXAM, ESOPH N/A 03/31/2022 UPPER EUS- ENDOSCOPIC ULTRASOUND performed by David Dejesus MD at [facility] ENDOSCOPY PRO UP GI ENDOSCOPY, BALL DIL, 30MM N/A 12/24/2022 EGD,WITH DILATION ESOPHAGUS WITH BALLOON,< 30 MM (WRVU 2.67) performed by David Dejesus [facility] ENDOSCOPY PRO UP GI ENDOSCOPY, BALL DIL, 30MM N/A 01/12/2023 EGD,WITH DILATION ESOPHAGUS WITH BALLOON,< 30 MM (WRVU 2.67) performed by David Dejesus [facility] ENDOSCOPY PRO UP GI ENDOSCOPY, BALL DIL, 30MM N/A 02/26/2023 EGD,WITH DILATION ESOPHAGUS WITH BALLOON,< 30 MM (WRVU 2.67) performed by David Dejesus [facility] ENDOSCOPY PRO UP GI ENDOSCOPY, BALL DIL, 30MM N/A 03/16/2023 EGD,WITH DILATION ESOPHAGUS WITH BALLOON,< 30 MM (WRVU 2.67) performed by David Dejesus [facility] ENDOSCOPY PRO UP GI ENDOSCOPY, BALL DIL, 30MM N/A 03/30/2023 EGD,WITH DILATION ESOPHAGUS WITH BALLOON,< 30 MM (WRVU 2.67) performed by David Dejesus [facility] ENDOSCOPY PRO UP GI ENDOSCOPY, BALL DIL, 30MM N/A 04/30/2023 EGD,WITH DILATION ESOPHAGUS WITH BALLOON,< 30 MM (WRVU 2.67) performed by David Dejesus [facility] ENDOSCOPY PRO UP GI ENDOSCOPY, BALL DIL, 30MM N/A 06/01/2023 EGD,WITH DILATION ESOPHAGUS WITH BALLOON,< 30 MM (WRVU 2.67) performed by David Dejesus MDat [facility] ENDOSCOPY PRO UP GI ENDOSCOPY, BALL DIL, 30MM N/A 08/02/2023 EGD,WITH DILATION ESOPHAGUS WITH BALLOON,< 30 MM (WRVU 2.67) performed by David Dejesus MDat [facility] ENDOSCOPY PRO UPPER GI ENDOSCOPY, BIOPSY N/A 04/03/2014 UPPER GASTROINTESTINAL ENDOSCOPY,WITH BIOPSY SINGLE OR MULTIPLE performed by David Dejesus MDat [facility] ENDOSCOPY PRO UPPER GI ENDOSCOPY, BIOPSY N/A 03/20/2016 EGD WITH BIOPSY performed by David Dejesus MD at [facility] ENDOSCOPY PRO UPPER GI ENDOSCOPY, BIOPSY N/A 11/22/2018 EGD WITH BIOPSY (WRVU 2.49) performed by David Dejesus MD at [facility] ENDOSCOPY PRO UPPER GI ENDOSCOPY, BIOPSY N/A 03/01/2020 UPPER GASTROINTESTINAL ENDOSCOPY,WITH BIOPSY SINGLE OR MULTIPLE (WRVU 2.49) performed by David Dejesus MD at [facility] ENDOSCOPY PRO UPPER GI ENDOSCOPY, BIOPSY N/A 09/23/2021 EGD WITH BIOPSY (WRVU 2.49) performed by David Dejesus MD at [facility] ENDOSCOPY PRO UPPER GI ENDOSCOPY, BIOPSY N/A 03/31/2022 EGD WITH BIOPSY (WRVU 2.49) performed by David Dejesus MD at [facility] ENDOSCOPY PRO UPPER GI ENDOSCOPY, BIOPSY N/A 07/03/2022 EGD WITH BIOPSY (WRVU 2.49) performed by David Dejesus MD at [facility] ENDOSCOPY PRO UPPER GI ENDOSCOPY, DIAGNOSTIC N/A 04/03/2014 EGD, UPPER GI ENDOSCOPY performed by David Dejesus MD at [facility] ENDOSCOPY PRO UPPER GI ENDOSCOPY, DIAGNOSTIC N/A 03/01/2020 EGD, UPPER GI ENDOSCOPY performed by David Dejesus MD at [facility] ENDOSCOPY PRO UPPER GI ENDOSCOPY, DIAGNOSTIC N/A 09/09/2022 EGD, UPPER GI ENDOSCOPY (WRVU 2.09) performed by Ayo Russ MD at [facility] MAIN OR Social history and habits: Social [...] PM EDT Office Visit Cardiology at [address] [address] Milagros Hernandez MD [facility] [place] [address] Scheduled Orders Name Type Priority Associated Diagnoses [...] Patient's reports that she was evaluated at [facility] for possible PNA, and the G-tube [...] 09/16 due to occlusion. Patient traveled to [place] where tube could not be flushed. Exchanged [...] removed over the wire. ??A new 16 [place] balloon retained nonlow-profile gastrostomy tube was then [...] dysplasia Farrell's esophagus Problem with gastrostomy tube Farrlel's esophagus with high grade dysplasia Farrell's esophagus Farrell's esophagus with low grade dysplasia Farrell's esophagus documented in this encounter Care Teams Venetian Blind Maker Relationship Specialty Start Date End Date Ana Gillespie APRN [address] [place] [id number] PCP - General Family Medicine 02/03/19 documented as of this encounter
--- OUTSIDE RECORDS SUMMARY | 2024-02-29 19:23 | XMS_ITS | Encounter Summary ---
Author Organization [facility] Address [facility] [place] [address] Care Team Providers Care Residential Program Worker Name Role Phone Ana Gillespie APRN Primary Care Provider [phone] Encounter Details Date Type Department Care Team (Late st Contact Info) Description 02/23/2024 [place] [phone] [facility] [place] [address] Social History Tobacco Use Types Packs/Day Years [...] encounter Miscellaneous Notes * Telephone Encounter - Tenisah Fairchild RD - 02/23/2024 3:20 PM EDT Spoke with regarding Jennifer's formula. She is on 1000 ml per day; Four 250 ml cartons per day (Nutren 1.5). Having some trouble with PCP's office for refills. Working with [facility]. He is not home currently but heading there and going to check in her formula supply and call me back. documented in this encounter Plan of Treatment Upcoming Encounters Date Type Department Care Team (Late st Contact Info) Description 03/10/2024 4:00 PM EDT Office Visit Cardiology at [address] [address] Milagros Hernandez MD [facility] [place] [address] Scheduled Procedures Name Priority Associated Diagnoses Date/Ti me EGD, UPPER GI ENDOSCOPY (WRV U 2.09) Peptic stricture of esophagus documented as of this encounter Visit Diagnoses Not on filedocumented in this encounter Care Teams Residential Program Worker Relationship Specialty Start Date End Date Ana Gillespie APRN [address] [place] [address] PCP - General Family Medicine 02/03/19 documented as of this encounter
--- OUTSIDE RECORDS SUMMARY | 2024-02-29 19:23 | XMS_ITS | Encounter Summary ---
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's esophagus with low grade dysplasia Procedures IR G-Tube Check/Change Hang Cooper PA [facility] DR [place] [address] [place] [address] Referral ID Status Reason Start Date Expiration Date V isits Requested Visits Authorized [id number] Closed Specialty Service Requested 09/23/2023 03/25/2025 1 1 Reason for Visit * Diagnostic Test (Routine) - Closed Specialty Diagnoses / Procedures Referred By Esperanza t Referred To Contact Radiology Diagnoses Problem with gastrostomy tube Farrell's esophagus with high grade dysplasia Farrell's esophagus with low grade dysplasia Procedures IR G-Tube Check/Change Hang Cooper PA [facility] [place] [address] [place] [address] Referral ID Status Reason Start Date Expiration Date V isits Requested Visits Authorized [id number] Closed Specialty Service Requested 09/23/2023 03/25/2025 1 1 Encounter Details Date Type Department Care Team (Latest Contact Info) Description 10/14/2023 10:11 AM EDT - 10/14/2023 11:59 PM EDT Hospital [place] [address] Geronimo Chambers, [facility] [place] [address] Problem with gastrostomy tube; Farrell's esophagus with [...] meter kit. 1 each 0 12/14/2014 Insulin [place], Disposable, (BD INSULIN PEN NEEDLE UF MINI) 31 x 3/16 NeedleIndications:Josefina betes mellitus type 2, uncontrolled 1 Device by [facility].(Non-Drug; Combo Route) route 3 times daily as needed. 100 each 11 12/13/2014 documented as of this encounter Progress Notes * Sergey Moraes RN - 10/10/2023 10:50 AM EDT [facility] Name: Jennifer Irving Date of : 1960 AGE: 63 y.o. Address: [address] [address] (home) Mobile: Telephone Information: Referring Provider: Hang Cooper REASON FOR VISIT: Order Questions Answers Where will study be performed? [facility] Radiology [120] To be scheduled Next available [...] on 09/16 due to occlusion. Patienttraveled to [place] where tube could not be flushed. Exchanged [...] IR G-Tube Check/Change 11/27/2022 Hang Cooper PA [facility] INTERVENTIONL RAD IR G-TUBE CHECK/CHANGE 03/10/2023 IR G-Tube Check/Change 03/10/2023 Geronimo Chambers DO [facility] INTERVENTIONL RAD IR G-TUBE CHECK/CHANGE 04/06/2023 IR G-Tube Check/Change 04/06/2023 Gavin Carrillo MD [facility] INTERVENTIONL RAD IR G-TUBE CHECK/CHANGE 05/09/2023 IR G-Tube Check/Change [facility] INTERVENTIONL RAD IR G-TUBE CHECK/CHANGE 07/09/2023 IR G-Tube Check/Change [facility] INTERVENTIONL RAD IR G-TUBE CHECK/CHANGE 09/17/2023 IR G-Tube Check/Change 09/17/2023 Hang Cooper PA [facility] INTERVENTIONL RAD IR G-TUBE PLACEMENT 09/11/2022 IR G-Tube Placement 09/11/2022 Moustapha Hart MD [facility] INTERVENTIONL RAD IR SUTURE RELEASE 09/25/2022 IR Suture Release 09/25/2022 Yoselin Ghosh PA [facility] INTERVENTIONL RAD PERCUTANEOUS GASTROSTOMY N/A 09/11/2022 PERCUTANEOUS GASTROSTOMY performed by Aiden Flores MD at [facility] CATY PRO COLONOSCOPY, BIOPSY N/A 03/20/2016 COLONOSCOPY FLEXIBLE, WITH BX performed by David Dejesus MD at [facility] ENDOSCOPY PRO COLONOSCOPY, DIAGNOSTIC N/A 03/01/2020 COLONOSCOPY, DIAGNOSTIC performed by David Dejesus MD at [facility] ENDOSCOPY PRO ENDOSCOPIC US EXAM, ESOPH N/A 03/31/2022 UPPER EUS- ENDOSCOPIC ULTRASOUND performed by David Dejesus MD at [facility] ENDOSCOPY PRO UP GI ENDOSCOPY, BALL DIL, 30MM N/A 12/24/2022 EGD,WITH DILATION ESOPHAGUS WITH BALLOON,< 30 MM (WRVU 2.67) performed by David Dejesus MDat [facility] ENDOSCOPY PRO UP GI ENDOSCOPY, BALL DIL, 30MM N/A 01/12/2023 EGD,WITH DILATION ESOPHAGUS WITH BALLOON,< 30 MM (WRVU 2.67) performed by David Dejesus [facility] ENDOSCOPY PRO UP GI ENDOSCOPY, BALL DIL, 30MM N/A 02/26/2023 EGD,WITH DILATION ESOPHAGUS WITH BALLOON,< 30 MM (WRVU 2.67) performed by David Dejesus [facility] ENDOSCOPY PRO UP GI ENDOSCOPY, BALL DIL, 30MM N/A 03/16/2023 EGD,WITH DILATION ESOPHAGUS WITH BALLOON,< 30 MM (WRVU 2.67) performed by David Dejesus [facility] ENDOSCOPY PRO UP GI ENDOSCOPY, BALL DIL, 30MM N/A 03/30/2023 EGD,WITH DILATION ESOPHAGUS WITH BALLOON,< 30 MM (WRVU 2.67) performed by David Dejesus [facility] ENDOSCOPY PRO UP GI ENDOSCOPY, BALL DIL, 30MM N/A 04/30/2023 EGD,WITH DILATION ESOPHAGUS WITH BALLOON,< 30 MM (WRVU 2.67) performed by David Dejesus [facility] ENDOSCOPY PRO UP GI ENDOSCOPY, BALL DIL, 30MM N/A 06/01/2023 EGD,WITH DILATION ESOPHAGUS WITH BALLOON,< 30 MM (WRVU 2.67) performed by David Dejesus [facility] ENDOSCOPY PRO UP GI ENDOSCOPY, BALL DIL, 30MM N/A 08/02/2023 EGD,WITH DILATION ESOPHAGUS WITH BALLOON,< 30 MM (WRVU 2.67) performed by David Dejesus [facility] ENDOSCOPY PRO UP GI ENDOSCOPY, DILATN W GUIDE N/A 10/07/2023 EGD-ESOPHOGEAL DILATATION OVER GUIDE WIRE (WRVU 2.91) performed by David Dejesus MD at [facility] ENDOSCOPY PRO UPPER GI ENDOSCOPY, BIOPSY N/A 04/03/2014 UPPER GASTROINTESTINAL ENDOSCOPY,WITH BIOPSY SINGLE OR MULTIPLE performed by David Dejesus [facility] ENDOSCOPY PRO UPPER GI ENDOSCOPY, BIOPSY N/A 03/20/2016 EGD WITH BIOPSY performed by David Dejesus MD at [facility] ENDOSCOPY PRO UPPER GI ENDOSCOPY, BIOPSY N/A 11/22/2018 EGD WITH BIOPSY (WRVU 2.49) performed by David Dejesus MD at [facility] ENDOSCOPY PRO UPPER GI ENDOSCOPY, BIOPSY N/A 03/01/2020 UPPER GASTROINTESTINAL ENDOSCOPY,WITH BIOPSY SINGLE OR MULTIPLE (WRVU 2.49) performed by David Dejesus MD at [facility] ENDOSCOPY PRO UPPER GI ENDOSCOPY, BIOPSY N/A 09/23/2021 EGD WITH BIOPSY (WRVU 2.49) performed by David Dejesus MD at [facility] ENDOSCOPY PRO UPPER GI ENDOSCOPY, BIOPSY N/A 03/31/2022 EGD WITH BIOPSY (WRVU 2.49) performed by David Dejesus MD at [facility] ENDOSCOPY PRO UPPER GI ENDOSCOPY, BIOPSY N/A 07/03/2022 EGD WITH BIOPSY (WRVU 2.49) performed by David Dejesus MD at [facility] ENDOSCOPY PRO UPPER GI ENDOSCOPY, DIAGNOSTIC N/A 04/03/2014 EGD, UPPER GI ENDOSCOPY performed by David Dejesus MD at [facility] ENDOSCOPY PRO UPPER GI ENDOSCOPY, DIAGNOSTIC N/A 03/01/2020 EGD, UPPER GI ENDOSCOPY performed by David Dejesus MD at [facility] ENDOSCOPY PRO UPPER GI ENDOSCOPY, DIAGNOSTIC N/A 09/09/2022 EGD, UPPER GI ENDOSCOPY (WRVU 2.09) performed by Ayo Russ MD at [facility] MAIN OR Medications: Current Outpatient Medications [...] daily. 180 tablet 3 Blood Sugar Diagnostic ([employer] ULTRA TEST) Strip 1 each by Other [...] glucose meter kit. 1 each 0 Insulin [place], Disposable, (BD INSULIN PEN NEEDLE UF MINI) 31 x 3/16 Needle 1 Device by [facility].(Non-Drug; Combo Route) route 3 times daily as [...] on 09/16 due to occlusion. Patienttraveled to [place] where tube could not be flushed. Exchanged [...] tube removed over the wire. A new16 [place] balloon retained nonlow-profile gastrostomy tube was then [...] PM EDT Office Visit Cardiology at [address] [address] Milagros Hernandez MD [facility] [place] [address] Scheduled Procedures Name Priority Associated Diagnoses Date/Ti [...] 09/16 due to occlusion. Patient traveled to [place] where tube could not be flushed. Exchanged [...] removed over the wire. ??A new 16 [place] balloon retained nonlow-profile gastrostomy tube was then [...] mLs documented in this encounter Care Teams Safe Deposit Attendant Relationship Specialty Start Date End Date Ana Gillespie APRN [address] [place] [address] PCP - General Family Medicine 02/03/19 documented as of this encounter
--- OUTSIDE RECORDS SUMMARY | 2024-02-29 19:23 | XMS_ITS | Encounter Summary ---
Author Organization Formerly [facility] Address [facility] [place] [address] Care Team Providers Care Physical Therapy Assistant Instructor Name Role Phone Ana Gillespie VAUGHN Primary Care Provider [phone] Encounter Details Date Type Department Care Team (Latest Contact Info) Description 10/07/2023 9:20 AM EDT - 10/07/2023 12:03 PM EDT Hospital En[place] [address] David Dejesus MD [facility] [place] [address] Discharge Disposition: Home Social History Tobacco Use [...] the day after the procedure, use an iqnn-yux-ppmxmmk spray to numb your throat. Sucking on [...] occurs, please contact your Doctor. Please call [phone] before 8pm Mon-Fri with problems, questions or concerns. If you call after 8pm or on weekends, call the Hospital at [phone] and ask to speak to the Tankage Grinder iron worker apprentice and the processing operator will contact that person for you. When should you call for help? Call [phone] anytime you think you may need emergency [...] any problems. Where can you learn more? [facility] View your After Visit Summary and more online at [email or web address] If you would like to provide feedback [...] cost to you. Content Version: 12.2 ?? 9732-8738 [employer]. Care instructions adapted under license by [facility]. If you have questions about a medical condition or this instruction, always ask your healthcare professional. [employer] disclaims any warranty or liability for your [...] the day after the procedure, use an fujn-ocb-yiiosvt spray to numb your throat. Sucking on [...] occurs, please contact your Doctor. Please call [phone] before 8pm Mon-Fri with problems, questions or concerns. If you call after 8pm or on weekends, call the Hospital at [phone] and ask to speak to the Tankage Grinder iron worker apprentice and the processing operator will contact that person for you. [...] any problems. Where can you learn more? [facility] View your After Visit Summary and more online at [email or web address] If you would like to provide feedback [...] cost to you. Content Version: 12.2 ?? 1451-5017 [employer]. Care instructions adapted under license by [facility]. If you have questions about a medical condition or this instruction, always ask your healthcare professional. [employer] disclaims any warranty or liability for your [...] meter kit. 1 each 0 12/14/2014 Insulin [place], Disposable, (BD INSULIN PEN NEEDLE UF MINI) 31 x 07/23 NeedleIndications:Josefina betes mellitus type 2, uncontrolled 1 Device by [facility].(Non-Drug; Combo Route) route [...] glucose meter kit. 1 each 0 Insulin [place], Disposable, (BD INSULIN PEN NEEDLE UF MINI) 31 x 3/16 Needle 1 Device by [facility].(Non-Drug; Combo Route) route [...] PM EDT Office Visit Cardiology at [address] [address] Milagros Hernandez MD [facility] [place] [address] Scheduled Procedures Name Priority Associated Diagnoses Date/Ti me EGD, UPPER GI ENDOSCOPY (WRV U 2.09) Peptic stricture of esophagus documented as of this encounter Procedures Procedure Name Priority Date/Time Associated Diagnosis Comments Up Gi Endoscopy, Jes W Guide (03735) 10/07/2023 10:44 AM EDT Peptic stricture of esophagus UPPER GI ENDOSCOPY Routine 10/07/2023 10 :34 AM EDT documented in this encounter Results * UPPER GI ENDOSCOPY (10/07/2023 10:34 AM EDT) UPPER GI ENDOSCOPY [facility] Endoscopy Procedure Date: 10/07/2023 10:34 AM ? Patient Name: Jennifer Irving ? Date of : 1960 ? Age: 63 ? Order #: [id number] ? Instrument Name: [id number] ? Procedure: ? Upper GI endoscopy Indications: [...] RN) documented in this encounter Care Teams Physical Therapy Assistant Instructor Relationship Specialty Start Date End Date Ana Gillespie APRN [address] [place] [address] PCP - General Family Medicine 02/03/19 documented as of this encounter
--- OUTSIDE RECORDS SUMMARY | 2024-02-29 19:23 | XMS_ITS | Encounter Summary ---
Author Organization [facility] [place] [address] Care Team Providers Care Radiographer Cardiac Catheterization Name Role Phone Ana Gillespie APRN Primary Care Provider [phone] Encounter Details Date Type Department Care Team (Late Contact Info) Description 10/25/2023 Orders [place] [id number] David Dejesus MD [facility] [place] [address] Peptic stricture of esophagus Social History Tobacco [...] Office Visit Cardiology at [address] [phone] Milagros Hernandez MD [facility] [place] [address] Scheduled Orders Name Type Priority Associated Diagnoses [...] esophagus documented in this encounter Care Teams Radiographer Cardiac Catheterization Relationship Specialty Start Date End Date Ana Gillespie APRN [address] [place] [address] PCP - General Family Medicine 02/03/19 documented as of this encounter
--- OUTSIDE RECORDS SUMMARY | 2024-02-29 19:23 | XMS_ITS | Encounter Summary ---
Author Organization [facility] [place] [address] Care Team Providers Care Physician Office Secretary Name Role Phone Ana Gillespie VAUGHN Primary Care Provider [phone] Encounter Details Date Type Department Care Team (Late st Contact Info) Description 10/27/2023 Telephone Gastroenterology at [facility] [place] [phone] Parris Maravilla Social History Tobacco Use Types [...] - 10/27/2023 11:43 AM EDT Jennifer Irving [id number] Diagnosis/Indication: petic stricture - follow-up dilation in [...] your procedure. Who will likely be your tour driver for the procedure? *Please Verify the [...] PM EDT Office Visit Cardiology at [address] [address] Milagros Hernandez MD [facility] [place] [address] Scheduled Procedures Name Priority Associated Diagnoses Date/Ti me EGD, UPPER GI ENDOSCOPY (WRV U 2.09) Peptic stricture of esophagus documented as of this encounter Visit Diagnoses Not on filedocumented in this encounter Care Teams Physician Office Secretary Relationship Specialty Start Date End Date Ana Gillespie APRN [address] [place] [address] PCP - General Family Medicine 02/03/19 documented as of this encounter
--- OUTSIDE RECORDS SUMMARY | 2024-02-29 19:23 | XMS_ITS | Encounter Summary ---
Author Organization [facility] [place] [address] Care Team Providers Care Emissions Engineer Name Role Phone Ana Gillespie VAUGHN Primary Care Provider [phone] Reason for Visit * Reason Comments Medication Refill Encounter Details Date Type Department Care Team (Late st Contact Info) Description 12/13/2023 Refill [place] [phone] Elsei Erickson [employer] [facility] [place] [address] Social History Tobacco Use Types Packs/Day Years [...] call and schedule as pt doesn't have [facility] available. documented in this encounter Plan of Treatment Upcoming Encounters Date Type Department Care Team (Late st Contact Info) Description 03/10/2024 4:00 PM EDT Office Visit Cardiology at [address] [address] Milagros Hernandez MD [facility] [place] [address] Scheduled Procedures Name Priority Associated Diagnoses Date/Ti me EGD, UPPER GI ENDOSCOPY (WRV U 2.09) Peptic stricture of esophagus documented as of this encounter Visit Diagnoses Not on filedocumented in this encounter Care Teams Emissions Engineer Relationship Specialty Start Date End Date Ana Gillespie APRN [address] [place] [address] PCP - General Family Medicine 02/03/19 documented as of this encounter
--- OUTSIDE RECORDS SUMMARY | 2024-02-29 19:23 | XMS_ITS | Encounter Summary ---
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 Procedures IR Site Check In Recovery Room Hang Cooper PA [facility] [place] [address] [facility] [place] [address] Referral ID Status Reason Start Date Expiration Date V isits Requested Visits Authorized [id number] Closed Specialty Service Requested 09/20/2023 03/22/2025 1 1 Encounter Details Date Type Department Care Team (Late st Contact Info) Description 09/20/2023 Notes [place] [address] Hang Cooper PA [facility] [place] [address] Social History Tobacco Use Types [...] PM EDT Office Visit Cardiology at [address] [address] Milagros Hernandez MD [facility] [place] [address] Scheduled Orders Name Type Priority Associated Diagnoses [...] esophagus documented in this encounter Care Teams Arts And Crafts Instructor Relationship Specialty Start Date End Date Ana Gillespie APRN [address] [place] [address] PCP - General Family Medicine 02/03/19 documented as of this encounter
--- OUTSIDE RECORDS SUMMARY | 2024-02-29 19:23 | XMS_ITS | Encounter Summary ---
Author Organization [facility] [place] [address] Care Team Providers Care Chemical Checker Name Role Phone Ana Gillespie APRN Primary Care Provider [phone] Encounter Details Date Type Department Care Team (Late st Contact Info) Description 10/12/2023 Telephone [place] [phone] Niru Mary Social History Tobacco Use Types [...] 2:45 PM EDT Copied from [facility] #[id number]. Topic: Specialty Dept CRMs - Generic Call >> Aug 20, 2023 8:14 AM Crispin Reeves wrote: Specialist: Bang Relationship (if other than patient-full name): Spouse, Campos Irving Reason for Call: Campos canceled 08/20/23 PFT and FUV, due to illness. Campos declined having this check writer reschedule. Please call Campos to coordinate rescheduling [id number] appointments with Campos. documented in this encounter Plan of Treatment Upcoming Encounters Date Type Department Care Team (Late st Contact Info) Description 03/10/2024 4:00 PM EDT Office Visit Cardiology at [address] [address] Milagros Hernandez MD [facility] [place] [address] Scheduled Procedures Name Priority Associated Diagnoses Date/Ti me EGD, UPPER GI ENDOSCOPY (WRV U 2.09) Peptic stricture of esophagus documented as of this encounter Visit Diagnoses Not on filedocumented in this encounter Care Teams Chemical Checker Relationship Specialty Start Date End Date Ana Gillespie APRN [address] [place] [address] PCP - General Family Medicine 02/03/19 documented as of this encounter
--- OUTSIDE RECORDS SUMMARY | 2024-02-29 19:23 | XMS_ITS | Encounter Summary ---
Author Organization [facility] Address [facility] [place] [address] Care Team Providers Care Spanish Medical Interpreter Name Role Phone Ana Gillespie VAUGHN Primary Care Provider [phone] Reason for Visit * Diagnostic Test (Routine) - Closed Specialty Diagnoses / Procedures Referred By Esperanza rodríguez Referred To Contact Radiology Diagnoses Problem with gastrostomy tube Procedures IR G-Tube Check/Change IR GJ-Tube Check/Change Sonny Pearson DO [facility] [place] [address] [facility] [place] [address] Referral ID Status Reason Start Date Expiration Date V isits Requested Visits Authorized [id number] Closed Specialty Service Requested 02/05/2024 08/04/2025 1 1 Encounter Details Date Type Department Care Team (Latest Contact Info) Description 02/07/2024 7:43 AM EDT - 02/07/2024 11:59 PM EDT Hospital [place] [phone] Rio Hill MD [facility] INTERVENTION[place] [address] Problem with gastrostomy tube Discharge Disposition: Home [...] Sign Reading Time Taken Comments Blood Pressure 102/52 02/07/2024 9:18 AM EDT Pulse 57 02/07/2024 9:18 AM EDT Temperature 36.3 ??C (97.4 ??F) 02/07/2024 9:18 AM ED T Respiratory Rate 20 02/07/2024 9:18 AM EDT Oxygen Saturation 98% 02/07/2024 9:18 AM EDT Inhaled Oxygen Concentration - - Weight - - Height - - Body Mass Index - - documented in this encounter Discharge Instructions * Discharge Instructions* Merly Barry RN - 02/07/2024 8:59 AM EDT Discharge Instructions for Feeding Tube Care [...] or its attachments. INTERVENTIONAL RADIOLOGY PHONE NUMBERS [phone] If you have a NON Low profile feeding tube, call with any questions or concerns. During regular office hours call: [phone]. If it is after regular office hours, weekends or holidays, please call [phone] and ask to speak to the Fire Boat Engineer stone layer for Interventional Radiology. If you have a low profile ???ESTRELLITA-BARLOW?? feeding tube, please call Dejah Stauffer RN for any issues: [phone]. Revised 02/23/19 documented in this encounter Medications [...] meter kit. 1 each 0 12/14/2014 Insulin [place], Disposable, (BD INSULIN PEN NEEDLE UF MINI) 31 x 3/16 NeedleIndications:Josefina betes mellitus type 2, uncontrolled 1 Device by Misc.(Non-Drug; Combo Route) route 3 times daily as needed. 100 each 11 12/13/2014 documented as of this encounter Progress Notes * Merly Barry RN - 02/07/2024 8:53 AM EDT ANGIO NURSING DATABASE Name: Jennifer Irving Date of : 1960 AGE: 63 y.o. Address: [address] [address] (home) Mobile: Telephone Information: Referring Provider: Sonny Pearson REASON FOR VISIT: Order Questions Answers Where will study be performed? [facility] Radiology [120] To be scheduled Next available after expected date Is the patient on anticoagulant / antiplatelet therapy ? No Reason for exam and clinical history: exchange of G tube, dislodged. 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 Onto table supine. All monitors, [...] PM EDT Office Visit Cardiology at [address] [address] Milagros Hernandez MD [facility] [place] [address] Scheduled Procedures Name Priority Associated Diagnoses Date/Ti me EGD, UPPER GI ENDOSCOPY (WRV U 2.09) Peptic stricture of esophagus documented as of this encounter Procedures Procedure Name Priority Date/Time Associated Diagnosis Comments IR G-TUBE CHECK/CHANGE Routine 02/07/2024 9:14 AM EDT Problem with gastrostomy tube documented in this encounter Results * IR G-Tube Check/Change (02/07/2024 9:14 AM EDT) Anatomical Region Laterality Modality Chest X-Ray Angiograph y Narrative 02/07/2024 11:47 AM EDT Interventional Radiology Procedure Note Procedure: Gastrostomy tube exchange Indication for procedure: Farrell's esophagus, enteral access dependent, G-tube dislodgement Pre-procedure: Informed consent for the procedure including risks, benefits and alternatives was obtained. Active time-out was performed prior to the procedure. Maximum sterile barrier technique was used throughout the procedure. Method of sedation: None. Technique: The patient was positioned supine. Bone Crusher imaging was performed with mixed air/contrast injection through indwelling gastrostomy tube. Local anesthetic was administered. A wire was advanced through the indwelling gastrostomy tube and the tube was removed. A new gastrostomy tube was advanced into the stomach, and intragastric position was confirmed with contrast injection. Retention balloon inflated with 5 mL sterile water and <0.5 mL contrast. The tube was capped. Clean dressing applied. Medications: Viscous lidocaine topical Fluoroscopy: 0.80 mGy Estimated blood loss: 1 mL Complications: No immediate Specimens: None Impression: Gastrostomy tube exchange with placement of a EnFit 16 F gastrostomy tube. tobacco stripping machine operator: Hang Cooper PA-C Attending of record: Rio Hill MD 02/07/2024 I, Dr. Hill, was not present for this procedure. Rio Hill MD IMG IR ORDERABLES documented in this encounter Visit Diagnoses Diagnosis Problem with gastrostomy tube documented in this encounter Care Teams Spanish Medical Interpreter Relationship Specialty Start Date End Date Ana Gillespie APRN [address] [place] [address] PCP - General Family Medicine 02/03/19 documented as of this encounter
--- OUTSIDE RECORDS SUMMARY | 2024-02-29 19:23 | XMS_ITS | Clinical Summary ---
Author Organization [facility], [facility] Address [facility] [place] [address] Care Team Providers Care Habilitative Interventionist Name Role Phone Ana Gillespie VAUGHN Primary Care Provider [phone] Allergies Active Allergy Reactions Criticality Noted Date Comments Meperidine Hcl Nausea And Vomiting Low CIS - violently ill Metformin Other (See Comments) Low 09/23/2021 Severe diarrhea Medications Medication Sig Dispensed Refills Start Date End Date Status Insulin [place], Disposable, (BD INSULIN PEN NEEDLE UF MINI) [...] Encounters Date Type Department Care Team Description 02/23/2024 Telephone [place] [phone] Tenisha Fairchild, RD 02/23/2024 [place]phone [place] [phone] Tenisha Fairchild, RD 02/07/2024 7:43 AM EDT - 02/07/2024 11:59 PM EDT Hospital Encounter Radiology at [place] [phone] iRo Hill MD Problem with gastrostomy tube Discharge Disposition: Home 02/07/2024 Travel 02/05/2024 Orders Only Radiology at [place] [phone] Sonny Pearson, DO Problem with gastrostomy tube 01/19/2024 Telephone [place] [address] Chiquita James, RN 12/20/2023 Orders [place] [phone] Deborah Gallo PA Esophageal stricture; Gastroesophageal reflux disease, unspecified whether esophagitis present; Farrell's esophagus without dysplasia 12/13/2023 [place] [address] Kiko Ashley 12/13/2023 [place] [address] AdamsElsie loganVAUGHN 12/07/2023 2:00 PM EDT Office [place] [address] Geronimo Mojica MD History of chronic pancreatitis; Esophageal stricture 12/07/2023 12:24 PM EDT - 12/07/2023 11:59 PM EDT Hospital [place] [address] Hypoxemia Discharge Disposition: Home 12/07/2023 Travel from Last 3 Months Family History Medical [...] PM EDT Office Visit Cardiology at [address] [address] Milagros Hernandez MD [facility] [place] [address] Scheduled Procedures Name Priority Associated Diagnoses Date/Ti [...] history exists Medical Devices Implanted Type Area Audio Director Device Identifier Shelf Expiration Date Model / Serial / Lot Other Implanted:Qty: 3 Other Left: Hip Description:three screws lef t hip Procedures Procedure Name Priority Date/Time Associated Diagnosis Comments IR G-TUBE CHECK/CHANGE Routine 02/07/2024 9:14 AM EDT Problem with gastrostomy tube COMMON PULMONARY FUNCTION TEST Routine 12/07/2023 12:35 PM EDT Hypoxemia BASIC METABOLIC PANEL Routine 09/25/2022 3:11 AM [...] Recently Relevant to Health Maintenance Results * IR G-Tube Check/Change (02/07/2024 9:14 [...] None. Technique: The patient was positioned supine. Psychosocial Rehabilitation Counselor imaging was performed with mixed air/contrast injection [...] of a EnFit 16 F gastrostomy tube. fluid pump operator: Hang Cooper PA-C Attending of record: Rio Hill MD 02/07/2024 I, Dr. Hill, was not present for this procedure. Rio Hill MD IMG IR ORDERABLES * Common Pulmonary Function Test (12/07/2023 12:35 [...] PFT FEV1/FVC Pre-BD Z-Score -0.14 COMPAS PFT CER84-04 Actual Pre-BD 1.66 % COMPAS PFT UMY39-25 Predicted 1.94 % COMPAS PFT TKV47-55 Pre-BD % of Predicted 86 % COMPAS PFT IPW29-74 Pre-BD Z-Score -0.41 COMPAS PFT DLCO Hb [...] Noe Meredith MD PFT ORDERABLES COMPAS PFT * (ABNORMAL) Basic Metabolic Panel (non-fasting) (09/25/2022 3:11 AM EDT) Glucose 187 65 - 199 mg/dL [facility] Comment:Diabetes: >=200 mg/d L plus symptoms Blood Urea Nitrogen 32(H) 8 - 18 mg/dL [facility] Creatinine 0.62(L) 0.70 - 1.20 mg/dL [facility] Sodium 142 135 - 145 mmol/L [facility] Potassium 4.6 3.5 - 5.0 mmol/L [facility] Comment: Please note: ??Patients with WBC >100,000 may have falsely elevated Potassium levels. ??For accurate Potassium quantification in these patients send serum separator tube (gold top) for subsequent determinations. ??Contact the Clinical Chemistry Laboratory if there are any questions. Chloride 103 98 - 107 mmol/L [facility] Carbon Dioxide 31 22 - 31 mmol/L [facility] Anion Gap 8 5 - 15 mmol/L [facility] Calcium 9.8 8.5 - 10.5 mg/dL [facility] Est Glomerular Filtration Rate 101 >=60 mL/min/1. 73 m?? [facility] Comment: This patient's estimated GFR was [...] In Lab Geronimo Pascal MD CHEMISTRY ORDERABLES [facility] [place] [address] * Lipid Panel (Reflex Direct LDL) (08/29/2022 4:48 AM EDT) Cholesterol, Total 110 mg/dL [facility] Comment: Lower Risk: <200 mg/dL Average Risk: 200-239 mg/dL Higher Risk: >yg=082 mg/dL Triglyceride 127 mg/dL [facility] Comment: Average Risk/Lower Risk: <150 mg/dL Borderline High Risk: 150-199 mg/dL High Risk: 200-499 mg/dL Very High Risk: >lc=798 mg/dL HDL Cholesterol 34 mg/dL [facility] Comment: Males: ?? Higher Risk: <40 mg/dL Females: ?? Higher Risk: <50 mg/dL LDL Cholesterol 51 mg/dL [facility] Comment: Lowest Risk: <100 mg/dL Lower Risk: 100-129 mg/dL Borderline High Risk: 130-159 mg/dL High Risk: 160-189 mg/dL Very High Risk: >oz=513 mg/dL Cholesterol/HDL Ratio 3.2 ratio [facility] Lipid Interpretation See Note [facility] Comment: Lipid management should be guided by a patient? s ASCVD risk, goals and preferences. ACC/AHA Guidelines recommend high intensity statin if clinical ASCVD or LDL greater than or equal to 190 mg/dL. http://[employer]/EXV-FEX-Pbucvpebw Adults aged 40-75 with LDL 70-189 mg/dL should have their 10 year ASCVD risk estimated with the ACC/AHA ASCVD risk solar sales estimator http://tools.acc.org/ZNLCV-Thgr-Ojjsfpeta/ Statin should be discussed if risk greater [...] Hernandez MD CHEMISTRY ORDERABLES Performing Organization Address City/State/[facility] Co de Phone Number [facility] [place] [address] * (ABNORMAL) Hemoglobin A1c (08/15/2022 3:05 AM EDT) Hemoglobin A1c 6.2(H) 4.3 - 5.6 % [facility] Comment: Reference Range: 4.3 - 5.6% [...] Mellitus, Diabetes Care 2013; 36: Suppl. 1, E44-68 Estimated Average Glucose 130 mg/dL [facility] Comment: eAG equivalents for HbA1c percentages: [...] into estimated average glucose values. ??Diabetes Care 2008:31(8):9786-2927. Blood 08/15/2022 3:05 AM EDT 08/15/2022 3:16 AM EDT Narrative Resulting Agency Comment Spec In Lab Carlos Terry MD CHEMISTRY ORDERABLES [facility] [place] [address] * COLONOSCOPY (03/01/2020 7:22 AM EDT) [facility] Signature COLONOSCOPY [facility] Endoscopy Procedure Date: 03/01/2020 7:22 AM ? Patient Name: [place] ? Date of : 1960 ? Age: 59 ? Order #: [id number] ? Instrument Name: [id number] ? Procedure: ? Colonoscopy Indications: ? Screening [...] PROVATION 03/01/2020 7:22 AM EDT Ana Gillespie SUPERINTENDENT HOUSE GENERAL SURGICAL ORD ERABLES Performing Organization Address City/[facility] Co de Phone Number PROVATION * Microalbumin, urine, random (12/13/2014 12:33 PM EDT) Creatinine, Urine 284 mg/dL [facility] Albumin, Urine 258.4 mg/L CERNE R MILLENNIUM Albumin / Creatinin Ratio, Urine 91 mcg/mg Cr [facility] Comment: Reference Range* Random collection (mcg/mg creatinine) Normal ?<30 Microalbuminuria ?? 30 - 300 Clinical Albuminuria ?? >300 *British Diabetes Association. Diabetic Nephropathy. Diabetes Care 1997;(Suppl 1):S24-S27 Exercise within 24 hour, infection, fever, CHF, marked hyperglycemia, and marked hypertension may elevate urinary albumin excretion over baseline values. Urine specimen (specimen) 12/13/2014 12:33 PM EDT 12/13/2014 12:39 PM EDT Narrative Resulting Agency Comment Spec In Lab Moustapha Agosto MD URINE ORDERABLES Performing Organization Address [facility] de Phone Number DARCY Eved * Mammography Screen Eduard 2D Bilateral (07/02/2014 [...] Documents on File Type Date Recorded Patient Brick Chimney Supervisor Expl anation Advance Directives and Dominic sandoval Will 09/11/2022 11:52 AM 09/11/2022 * Attempt Cardiopulmonary Resuscitation - Inpatient (Latest Code Status on File) Date Activated Date Inactivated Comments 02/07/2024 8:03 AM 02/08/2024 4:39 AM Question Answer Comments Code Status decision made by: Patient Content of discussion: full code * Attempt Cardiopulmonary Resuscitation - Inpatient Date Activated Date Inactivated Comments 10/14/2023 10:58 [...] Status decision made by: Patient Care Teams Habilitative Interventionist Relationship Specialty Start Date End Date Ana Gillespie APRN [address] [place] [address] PCP - General Family Medicine 02/03/19
--- OUTSIDE RECORDS SUMMARY | 2024-02-29 19:23 | XMS_ITS | Encounter Summary ---
Author Organization [facility] [place] [address] Care Team Providers Care Cell Plasterer Name Role Phone Ana Gillespie APRN Primary Care Provider [phone] Encounter Details Date Type Department Care Team [...] PM EDT Office Visit Cardiology at [address] [address] Milagros Hernandez MD [facility] [place] [address] Scheduled Procedures Name Priority Associated Diagnoses Date/Ti me EGD, UPPER GI ENDOSCOPY (WRV U 2.09) Peptic stricture of esophagus documented as of this encounter Visit Diagnoses Not on filedocumented in this encounter Care Teams Cell Plasterer Relationship Specialty Start Date End Date Ana Gillespie APRN [address] [place] [address] PCP - General Family Medicine 02/03/19 documented as of this encounter
--- OUTSIDE RECORDS SUMMARY | 2024-02-29 19:23 | XMS_ITS | Encounter Summary ---
Author Organization [facility] Address [facility] [place] [address] Care Team Providers Care Seat Joiner Name Role Phone Ana Gillespie APRN Primary Care Provider [phone] Encounter Details Date Type Department Care Team (Late Contact Info) Description 01/19/2024 [place] [address] Chiquita James, RN Social History [...] regarding her tube feed. States he called [facility] today for supplies for her and was told her case has been closed requestingan order for her tube feed to resume be sent to [facility]. Forwarded documented in this encounter Plan of Treatment Upcoming Encounters Date Type Department Care Team (Late Contact Info) Description 03/10/2024 4:00 PM EDT Office Visit Cardiology at [address] [address] Milagros Hernandez MD [facility] [place] [address] Scheduled Procedures Name Priority Associated Diagnoses Date/Ti me EGD, UPPER GI ENDOSCOPY (WRV U 2.09) Peptic stricture of esophagus documented as of this encounter Visit Diagnoses Not on filedocumented in this encounter Care Teams Seat Joiner Relationship Specialty Start Date End Date Ana Gillespie APRN [address] [place] [address] PCP - General Family Medicine 02/03/19 documented as of this encounter
--- OUTSIDE RECORDS SUMMARY | 2024-02-29 19:23 | XMS_ITS | Encounter Summary ---
Author Organization Formerly [facility] [place] [address] Care Team Providers Care Overlay Plastician Name Role Phone Ana Gillespie VAUGHN Primary Care Provider [phone] Encounter Details Date Type Department Care Team (Latest Contact Info) Description 09/17/2023 11:55 AM EDT - 09/17/2023 11:59 PM EDT Hospital [place] [phone] Geronimo Chambers, [facility] [place] [address] Discharge Disposition: Home Social History Tobacco Use [...] meter kit. 1 each 0 12/14/2014 Insulin [place], Disposable, (BD INSULIN PEN NEEDLE UF MINI) 31 x 07/23 NeedleIndications:Josefina betes mellitus type 2, uncontrolled 1 Device by [facility].(Non-Drug; Combo Route) route 3 times daily as needed. 100 each 11 12/13/2014 documented as of this encounter Progress Notes * Jamar Parsons RN - 09/17/2023 12:09 PM EDT ANGIO NURSING DATABASE Name: [place] Date of : 1960 AGE: 63 y.o. Address: [address] [address] (home) Mobile: Telephone Information: Referring Provider: Geronimo [...] PM EDT Office Visit Cardiology at [address] [address] Milagros Hernandez MD [facility] [place] [address] Scheduled Procedures Name Priority Associated Diagnoses Date/Ti [...] mLs documented in this encounter Care Teams Overlay Plastician Relationship Specialty Start Date End Date Ana Gillespie APRN [address] [place] [address] PCP - General Family Medicine 02/03/19 documented as of this encounter
--- OUTSIDE RECORDS SUMMARY | 2024-02-29 19:23 | XMS_ITS | Encounter Summary ---
Author Organization [facility] [place] [address] Care Team Providers Care Garment Fitter Name Role Phone Ana Gillespie APRN Primary Care Provider [phone] Encounter Details Date Type Department Care Team [...] PM EDT Office Visit Cardiology at [address] [address] Milagros Hernandez MD [facility] [place] [address] Scheduled Procedures Name Priority Associated Diagnoses Date/Ti me EGD, UPPER GI ENDOSCOPY (WRV U 2.09) Peptic stricture of esophagus documented as of this encounter Visit Diagnoses Not on filedocumented in this encounter Care Teams Garment Fitter Relationship Specialty Start Date End Date Ana Gillespie APRN [address] [place] [address] PCP - General Family Medicine 02/03/19 documented as of this encounter
--- OUTSIDE RECORDS SUMMARY | 2024-02-29 19:23 | XMS_ITS | Encounter Summary ---
Author Organization [facility] [place] [address] Care Team Providers Care Yard Caller Name Role Phone Ana Gillespie APRN Primary Care Provider [phone] Encounter Details Date Type Department Care Team (Late Contact Info) Description 11/05/2023 Orders [place] [phone] David Dejesus MD [facility] [place] [address] Peptic stricture of esophagus Social History Tobacco [...] PM EDT Office Visit Cardiology at [address] [phone] Milagros Hernandez MD [facility] [place] [address] Scheduled Orders Name Type Priority Associated Diagnoses [...] esophagus documented in this encounter Care Teams Yard Caller Relationship Specialty Start Date End Date Ana Gillespie APRN [address] [place] [address] PCP - General Family Medicine 02/03/19 documented as of this encounter
--- OUTSIDE RECORDS SUMMARY | 2024-02-29 19:23 | XMS_ITS | Encounter Summary ---
Author Organization [facility] Address [facility] [place] [address] Care Team Providers Care Plasma Processing Technician Name Role Phone Ana Gillespie VAUGHN Primary Care Provider [phone] Reason for Referral * Consultation (Routine) - Authorized Specialty Diagnoses / Procedures Referred By Esperanza t Referred To Contact Cardiology Diagnoses Esophageal stricture Gastroesophageal reflux disease, unspecified whether esophagitis present Farrell's esophagus without dysplasia Patient of Dr. Milagros Hernandez with possible complex surgery pending, eval for risk stratification Geronimo Mojica MD [facility] [place] [address] Milagros Hernandez MD [facility] [place] [address] Referral ID Status Reason Start Date Expiration Date Visits Requested Visits Authorized [id number] Authorized Consult Only 12/20/2023 12/19/2024 1 1 Encounter Details Date Type Department Care Team (Late st Contact Info) Description 12/20/2023 Orders Only [place] [address] Deborah Gallo PA [facility] [place] [address] Esophageal stricture; Gastroesophageal reflux disease, unspecified whether [...] PM EDT Office Visit Cardiology at [address] [address] Milagros Hernandez MD [facility] [place] [address] Scheduled Procedures Name Priority Associated Diagnoses Date/Ti [...] esophagus documented in this encounter Care Teams Plasma Processing Technician Relationship Specialty Start Date End Date Ana Gillespie APRN [address] [place] [address] PCP - General Family Medicine 02/03/19 documented as of this encounter
--- OUTSIDE RECORDS SUMMARY | 2024-02-29 19:23 | XMS_ITS | Encounter Summary ---
Author Organization [facility] Address [facility] [place] [address] Care Team Providers Care Inside Steward/Stewardess Name Role Phone Ana Gillespie APRN Primary Care Provider [phone] Encounter Details Date Type Department Care Team (Late st Contact Info) Description 12/13/2023 [place] [address] Kiko Ashley Social History Tobacco Use Types [...] PM EDT Office Visit Cardiology at [address] [phone] Milagros Hernandez MD [facility] [address] Scheduled Procedures Name Priority Associated Diagnoses Date/Ti me EGD, UPPER GI ENDOSCOPY (WRV U 2.09) Peptic stricture of esophagus documented as of this encounter Visit Diagnoses Not on filedocumented in this encounter Care Teams Inside Steward/Stewardess Relationship Specialty Start Date End Date Ana Gillespie APRN [address] [place] [address] PCP - General Family Medicine 02/03/19 documented as of this encounter
--- OUTSIDE RECORDS SUMMARY | 2024-02-29 19:23 | XMS_ITS | Encounter Summary ---
Author Organization [facility] Address [facility] [place] [address] Care Team Providers Care Pullman Car Repairer Name Role Phone Ana Gillespie VAUGHN Primary Care Provider [phone] Reason for Visit * Reason Comments Establish Care Dysphagia Encounter Details Date Type Department Care Team (Late st Contact Info) Description 12/07/2023 2:00 PM EDT Office Visit [place] [address] Richard Diallo MD [facility] DR THORACIC [place] [address] History of chronic pancreatitis; Esophageal stricture Social [...] Outpatient Consultation Note MD Alla Kirk PA-C [place] [address] FAX: Date of Consultation: 12/07/2023 This consultation has been requested by PCP: Ana Gillespie APRN Referring Physician: Ana Gillespie APRN [address] [place] [id number] Purpose for Consultation: esophageal stricture HPI: Jenniferanne [...] is a former smoker with an approximate 56-xrcu-gabm history, quit 4 years ago. She adamantly denies alcohol use or history of alcohol use and denies recreational drug use despite the documentation throughout her chart. 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 She states she is active during [...] IR G-Tube Check/Change 11/27/2022 Hang Cooper, ROSLYN [facility] RAD IR G-TUBE CHECK/CHANGE 03/10/2023 IR G-Tube Check/Change 03/10/2023 Richard Chambers DO [facility] RAD IR G-TUBE CHECK/CHANGE 04/06/2023 IR G-Tube Check/Change 04/06/2023 Gavin Carrillo MD [facility] RAD IR G-TUBE CHECK/CHANGE 05/09/2023 IR G-Tube Check/Change [facility] IR G-TUBE CHECK/CHANGE 07/09/2023 IR G-Tube Check/Change [facility] IR G-TUBE CHECK/CHANGE 09/17/2023 IR G-Tube Check/Change 09/17/2023 Hang Cooper PA [facility] RAD IR G-TUBE CHECK/CHANGE 10/14/2023 IR G-Tube Check/Change 10/14/2023 Moustapha Hart MD [facility] RAD IR G-TUBE PLACEMENT 09/11/2022 IR G-Tube Placement 09/11/2022 Moustapha Hart MD [facility] IR SUTURE RELEASE 09/25/2022 IR Suture Release 09/25/2022 Yoselin Ghosh PA [facility] RAD PERCUTANEOUS GASTROSTOMY N/A 09/11/2022 PERCUTANEOUS GASTROSTOMY performed by Aiden Flores MD at [facility] CATY PRO COLONOSCOPY, BIOPSY N/A 03/20/2016 COLONOSCOPY FLEXIBLE, WITH BX performed by David Dejesus MD at [facility] ENDOSCOPY PRO COLONOSCOPY, DIAGNOSTIC N/A 03/01/2020 COLONOSCOPY, DIAGNOSTIC performed by David Dejesus MD at [facility] ENDOSCOPY PRO DILATE ESOPHAGUS N/A 11/05/2023 EGD-DILATATION BY SOUND OR BOUGIE, SINGLE OR MULTIPLE PASSES (WRVU 1.28) performed by David Dejesus MD at [facility] ENDOSCOPY PRO ENDOSCOPIC US EXAM, ESOPH N/A 03/31/2022 UPPER EUS- ENDOSCOPIC ULTRASOUND performed by David Dejesus MD at [facility] ENDOSCOPY PRO UP GI ENDOSCOPY, BALL DIL, 30MM N/A 12/24/2022 EGD,WITH DILATION ESOPHAGUS WITH BALLOON,< 30 MM (WRVU 2.67) performed by David Dejesus MDat [facility] ENDOSCOPY PRO UP GI ENDOSCOPY, BALL DIL, 30MM N/A 01/12/2023 EGD,WITH DILATION ESOPHAGUS WITH BALLOON,< 30 MM (WRVU 2.67) performed by David Dejesus [facility] ENDOSCOPY PRO UP GI ENDOSCOPY, BALL DIL, 30MM N/A 02/26/2023 EGD,WITH DILATION ESOPHAGUS WITH BALLOON,< 30 MM (WRVU 2.67) performed by David Dejesus [facility] ENDOSCOPY PRO UP GI ENDOSCOPY, BALL DIL, 30MM N/A 03/16/2023 EGD,WITH DILATION ESOPHAGUS WITH BALLOON,< 30 MM (WRVU 2.67) performed by David Dejesus [facility] ENDOSCOPY PRO UP GI ENDOSCOPY, BALL DIL, 30MM N/A 03/30/2023 EGD,WITH DILATION ESOPHAGUS WITH BALLOON,< 30 MM (WRVU 2.67) performed by David Dejesus [facility] ENDOSCOPY PRO UP GI ENDOSCOPY, BALL DIL, 30MM N/A 04/30/2023 EGD,WITH DILATION ESOPHAGUS WITH BALLOON,< 30 MM (WRVU 2.67) performed by David Dejesus [facility] ENDOSCOPY PRO UP GI ENDOSCOPY, BALL DIL, 30MM N/A 06/01/2023 EGD,WITH DILATION ESOPHAGUS WITH BALLOON,< 30 MM (WRVU 2.67) performed by David Dejesus [facility] ENDOSCOPY PRO UP GI ENDOSCOPY, BALL DIL, 30MM N/A 08/02/2023 EGD,WITH DILATION ESOPHAGUS WITH BALLOON,< 30 MM (WRVU 2.67) performed by David Dejesus [facility] ENDOSCOPY PRO UP GI ENDOSCOPY, DILATN W GUIDE N/A 10/07/2023 EGD-ESOPHOGEAL DILATATION OVER GUIDE WIRE (WRVU 2.91) performed by David Dejesus MD at [facility] ENDOSCOPY PRO UP GI ENDOSCOPY, DILATN W GUIDE N/A 11/05/2023 EGD-ESOPHOGEAL DILATATION OVER GUIDE WIRE (WRVU 2.91) performed by David Dejesus MD at [facility] ENDOSCOPY PRO UPPER GI ENDOSCOPY, BIOPSY N/A 04/03/2014 UPPER GASTROINTESTINAL ENDOSCOPY,WITH BIOPSY SINGLE OR MULTIPLE performed by David Dejesus [facility] ENDOSCOPY PRO UPPER GI ENDOSCOPY, BIOPSY N/A 03/20/2016 EGD WITH BIOPSY performed by David Dejesus MD at [facility] ENDOSCOPY PRO UPPER GI ENDOSCOPY, BIOPSY N/A 11/22/2018 EGD WITH BIOPSY (WRVU 2.49) performed by David Dejesus MD at [facility] ENDOSCOPY PRO UPPER GI ENDOSCOPY, BIOPSY N/A 03/01/2020 UPPER GASTROINTESTINAL ENDOSCOPY,WITH BIOPSY SINGLE OR MULTIPLE (WRVU 2.49) performed by David Dejesus MD at [facility] ENDOSCOPY PRO UPPER GI ENDOSCOPY, BIOPSY N/A 09/23/2021 EGD WITH BIOPSY (WRVU 2.49) performed by David Dejesus MD at [facility] ENDOSCOPY PRO UPPER GI ENDOSCOPY, BIOPSY N/A 03/31/2022 EGD WITH BIOPSY (WRVU 2.49) performed by David Dejesus MD at [facility] ENDOSCOPY PRO UPPER GI ENDOSCOPY, BIOPSY N/A 07/03/2022 EGD WITH BIOPSY (WRVU 2.49) performed by David Dejesus MD at [facility] ENDOSCOPY PRO UPPER GI ENDOSCOPY, DIAGNOSTIC N/A 04/03/2014 EGD, UPPER GI ENDOSCOPY performed by David Dejesus MD at [facility] ENDOSCOPY PRO UPPER GI ENDOSCOPY, DIAGNOSTIC N/A 03/01/2020 EGD, UPPER GI ENDOSCOPY performed by David Dejesus MD at [facility] ENDOSCOPY PRO UPPER GI ENDOSCOPY, DIAGNOSTIC N/A 09/09/2022 EGD, UPPER GI ENDOSCOPY (WRVU 2.09) performed by Ayo Russ MD at [facility] MAIN OR Medications: Outpatient Medications Marked [...] glucose meter kit. 1 each 0 Insulin [place], Disposable, (BD INSULIN PEN NEEDLE UF MINI) 31 x 3/16 Needle 1 Device by [facility].(Non-Drug; Combo Route) route 3 times [...] questions Alla Bowden PA-C 12/07/2023 Thoracic Surgery [facility] I have seen the patient [...] PM EDT Office Visit Cardiology at [address] [phone] Milagros Hernandez MD [facility] [place] [address] Scheduled Orders Name Type Priority Associated Diagnoses Orde r Schedule Comprehensive metabolic panel (non-fasting) Lab Routine History of chronic pancreatitis Expected: 12/07/2023, Expires: 03/06/2024 Lipase Lab Routine History of chronic pancreatitis Expected: 12/07/2023, Expires: 2024 Amylase Lab Routine History of chronic pancreatitis Expected: 12/07/2023, Expires: 2024 Scheduled Procedures Name Priority Associated Diagnoses Date/Ti nj EGD, UPPER GI ENDOSCOPY (WRV U 2.09) Peptic stricture of esophagus documented as of this encounter Visit Diagnoses Diagnosis History of chronic pancreatitis Personal history of other diseases of digestive system Esophageal stricture Stricture and stenosis of esophagus documented in this encounter Care Teams Pullman Car Repairer Relationship Specialty Start Date End Date Ana Gillespie APRN [address] [place] [address] PCP - General Family Medicine 02/03/19 documented as of this encounter
--- OUTSIDE RECORDS SUMMARY | 2024-02-29 19:23 | XMS_ITS | Encounter Summary ---
Author Organization [facility] [place] [address] Care Team Providers Care Special Delivery Clerk Name Role Phone Ana Gillespie APRN Primary Care Provider [phone] Encounter Details Date Type Department Care Team (Late st Contact Info) Description 02/05/2024 Orders Only Radiology at [facility] [place] [address] Sonny Pearson DO [facility] [place] [address] Problem with gastrostomy tube Social History Tobacco [...] as of this encounter H&P Notes * Sonny Pearson DO - 02/05/2024 5:01 PM EDT Images from the original note were not included. INTERVENTIONAL RADIOLOGY FOCUSED H&P and PRE-PROCEDURE NOTE: PCP: Ana Gillespie APRN Referring Provider: TENNILLE Planned Procedure: Planned procedure: G tube exchange Procedure Indication: deflated balloon, partially dislodged catheter, need for exchange. Procedure Request: Interventional Radiology Service contacted by the patients' at 12pm today regarding the procedure request below. Presenting Diagnosis/ Complaint: Jennifer Irving is a 63 y.o. female with PMH of left femoral neck fracture, bipolar, alcohol use disorder, chronic pancreatitis, GERD complicated by esophagitis and Farrell's esophagus s/p G-tube placement (09/11/22) with most recent exchange on 10/14/23 with 16 Frballoon retained non low-profile with ENFit connector. I received a phone call from the patient's today that the catheter's balloon had deflated and dislodged. Patient was then taken to the nearby ED where the ED doc was able to place the catheter back in place. The additionally said that one of the ports of the catheter is broken, for which he has had to duct tape it shut. IR consulted for G tube exchange. Remainder of patient's medical and surgical history, allergies, medications, and social/family history obtained below as previously outlined in patient's medical record. Patient to return morning of 09/26 for conversion back to EnFit style catheter. 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 Stress-induced cardiomyopathy I51.81 History of chronic pancreatitis Z87.19 Esophageal stricture K22.2 Past Medical History: Diagnosis Date Aspiration, chronic pulmonary Bipolar disorder 02/12/2022 COPD (chronic obstructive pulmonary disease) DM (diabetes mellitus) Esophageal stricture Neuroleptic induced parkinsonism NSTEMI (non-ST elevated myocardial infarction) Oropharyngeal dysphagia Takotsubo cardiomyopathy 2022 Past Surgical History: Procedure Laterality Date HIP ARTHROPLASTY Left IR G-TUBE CHECK/CHANGE 11/27/2022 IR G-Tube Check/Change 11/27/2022 Hang Cooper PA [facility] IR G-TUBE CHECK/CHANGE 03/10/2023 IR G-Tube Check/Change 03/10/2023 Geronimo Chambers DO [facility] IR G-TUBE CHECK/CHANGE 04/06/2023 IR G-Tube Check/Change 04/06/2023 Gavin Carrillo MD [facility] IR G-TUBE CHECK/CHANGE 05/09/2023 IR G-Tube Check/Change [facility] IR G-TUBE CHECK/CHANGE 07/09/2023 IR G-Tube Check/Change [facility] IR G-TUBE CHECK/CHANGE 09/17/2023 IR G-Tube Check/Change 09/17/2023 Hang Cooper PA [facility] IR G-TUBE CHECK/CHANGE 10/14/2023 IR G-Tube Check/Change 10/14/2023 Moustapha Hart MD [facility] IR G-TUBE PLACEMENT 09/11/2022 IR G-Tube Placement 09/11/2022 Moustapha Hart MD [facility] IR SUTURE RELEASE 09/25/2022 IR Suture Release 09/25/2022 Yoselin Ghosh PA [facility] PERCUTANEOUS GASTROSTOMY N/A 09/11/2022 PERCUTANEOUS GASTROSTOMY performed by Aiden Flores MD at [facility] CATY PRO COLONOSCOPY, BIOPSY N/A 03/20/2016 COLONOSCOPY FLEXIBLE, WITH BX performed by David Dejesus MD at [facility] ENDOSCOPY PRO COLONOSCOPY, DIAGNOSTIC N/A 03/01/2020 COLONOSCOPY, DIAGNOSTIC performed by David Dejesus MD at [facility] ENDOSCOPY PRO DILATE ESOPHAGUS N/A 11/05/2023 EGD-DILATATION BY SOUND OR BOUGIE, SINGLE OR MULTIPLE PASSES (WRVU 1.28) performed by David Dejesus MD at [facility] ENDOSCOPY PRO ENDOSCOPIC US EXAM, ESOPH N/A 03/31/2022 UPPER EUS- ENDOSCOPIC ULTRASOUND performed by David Dejesus MD at [facility] ENDOSCOPY PRO UP GI ENDOSCOPY, BALL DIL, 30MM N/A 12/24/2022 EGD,WITH DILATION ESOPHAGUS WITH BALLOON,< 30 MM (WRVU 2.67) performed by David Dejesus MDat [facility] ENDOSCOPY PRO UP GI ENDOSCOPY, BALL DIL, 30MM N/A 01/12/2023 EGD,WITH DILATION ESOPHAGUS WITH BALLOON,< 30 MM (WRVU 2.67) performed by David Dejesus MDat [facility] ENDOSCOPY PRO UP GI ENDOSCOPY, BALL DIL, 30MM N/A 02/26/2023 EGD,WITH DILATION ESOPHAGUS WITH BALLOON,< 30 MM (WRVU 2.67) performed by David Dejesus MDat [facility] ENDOSCOPY PRO UP GI ENDOSCOPY, BALL DIL, 30MM N/A 03/16/2023 EGD,WITH DILATION ESOPHAGUS WITH BALLOON,< 30 MM (WRVU 2.67) performed by David Dejesus [facility] ENDOSCOPY PRO UP GI ENDOSCOPY, BALL DIL, 30MM N/A 03/30/2023 EGD,WITH DILATION ESOPHAGUS WITH BALLOON,< 30 MM (WRVU 2.67) performed by David Dejesus [facility] ENDOSCOPY PRO UP GI ENDOSCOPY, BALL DIL, 30MM N/A 04/30/2023 EGD,WITH DILATION ESOPHAGUS WITH BALLOON,< 30 MM (WRVU 2.67) performed by David Dejesus [facility] ENDOSCOPY PRO UP GI ENDOSCOPY, BALL DIL, 30MM N/A 06/01/2023 EGD,WITH DILATION ESOPHAGUS WITH BALLOON,< 30 MM (WRVU 2.67) performed by David Dejesus [facility] ENDOSCOPY PRO UP GI ENDOSCOPY, BALL DIL, 30MM N/A 08/02/2023 EGD,WITH DILATION ESOPHAGUS WITH BALLOON,< 30 MM (WRVU 2.67) performed by David Dejesus [facility] ENDOSCOPY PRO UP GI ENDOSCOPY, DILATN W GUIDE N/A 10/07/2023 EGD-ESOPHOGEAL DILATATION OVER GUIDE WIRE (WRVU 2.91) performed by David Dejesus MD at [facility] ENDOSCOPY PRO UP GI ENDOSCOPY, DILATN W GUIDE N/A 11/05/2023 EGD-ESOPHOGEAL DILATATION OVER GUIDE WIRE (WRVU 2.91) performed by David Dejesus MD at [facility] ENDOSCOPY PRO UPPER GI ENDOSCOPY, BIOPSY N/A 04/03/2014 UPPER GASTROINTESTINAL ENDOSCOPY,WITH BIOPSY SINGLE OR MULTIPLE [facility] ENDOSCOPY, BIOPSY N/A 03/20/2016 EGD WITH BIOPSY performed by David Dejesus MD at [facility] ENDOSCOPY PRO UPPER GI ENDOSCOPY, BIOPSY N/A 11/22/2018 EGD WITH BIOPSY (WRVU 2.49) performed by David Dejesus MD at [facility] ENDOSCOPY PRO UPPER GI ENDOSCOPY, BIOPSY N/A 03/01/2020 UPPER GASTROINTESTINAL ENDOSCOPY,WITH BIOPSY SINGLE OR MULTIPLE (WRVU 2.49) performed by David Dejesus MD at [facility] ENDOSCOPY PRO UPPER GI ENDOSCOPY, BIOPSY N/A 09/23/2021 EGD WITH BIOPSY (WRVU 2.49) performed by David Dejesus MD at [facility] ENDOSCOPY PRO UPPER GI ENDOSCOPY, BIOPSY N/A 03/31/2022 EGD WITH BIOPSY (WRVU 2.49) performed by David Dejesus MD at [facility] ENDOSCOPY PRO UPPER GI ENDOSCOPY, BIOPSY N/A 07/03/2022 EGD WITH BIOPSY (WRVU 2.49) performed by David Dejesus MD at [facility] ENDOSCOPY PRO UPPER GI ENDOSCOPY, DIAGNOSTIC N/A 04/03/2014 EGD, UPPER GI ENDOSCOPY performed by David Dejesus MD at [facility] ENDOSCOPY PRO UPPER GI ENDOSCOPY, DIAGNOSTIC N/A 03/01/2020 EGD, UPPER GI ENDOSCOPY performed by David Dejesus MD at [facility] ENDOSCOPY PRO UPPER GI ENDOSCOPY, DIAGNOSTIC N/A 09/09/2022 EGD, UPPER GI ENDOSCOPY (WRVU 2.09) performed by Ayo Russ MD at [facility] Medications: Current Outpatient Medications on File Prior to Visit Medication Sig Dispense Refill DULoxetine DR (Cymbalta) [...] taking: Reported on 11/17/2023) 6 tablet 0 sacubitriL-valsartan (Entresto) 24-26 mg tablet 1 tablet by Per G Tube route 2 times daily. 60 tablet 4 ciprofloxacin (Cipro) 500 mg tablet Take 1 tablet by mouth 2 times daily. (Patient not taking: Reported on 11/17/2023) 14 tablet 0 Miscellaneous Medical Supply Kit 1 Aluminum adjustable rolling walker (Patient not taking: Reportedon 12/07/2023) 1 kit 0 metoprolol succinate XL (Toprol-XL) [...] glucose meter kit. 1 each 0 Insulin [place], Disposable, (BD INSULIN PEN NEEDLE UF MINI) 31 x 3/16 Needle 1 Device by [place].(Non-Drug; Combo Route) route 3 times daily as [...] date: 02/26/2010 Quit date: 02/26/2021 Years since quittin.9 Smokeless tobacco: Never Tobacco comments: 1PPD x [...] Stability: Not on file Significant Family History: Family History Problem Relation Age of Onset Esophageal Cancer Mother Cancer Father unknown type Pertinent ROS: as per HPI Labs: Lab [...] day of procedure) Assessment: 63 y.o. female presents to [facility] for G Tube exchange. Last exchange on 10/14/23. Reviewed with Attending: Dr. Hill Plan: Planned procedure: G tube exchange Labs to be performed day of procedure: No labs Sedation: No Sedation Prophylactic antibiotic : None Contrast: Omnipaque Additional medications for procedure: Lidocaine Position: Supine Consent: Pending Medications to discontinue (and days held): None Case Urgency:: F- Elective OUT-patient intervention within 3 days 02/05/2024 documented in this encounter Plan of Treatment Upcoming Encounters Date Type Department Care Team (Late st Contact Info) Description 03/10/2024 4:00 PM EDT Office Visit Cardiology at [address] [address] Milagros Hernandez MD [facility] [place] [address] Scheduled Procedures Name Priority Associated Diagnoses Date/Ti me EGD, UPPER GI ENDOSCOPY (WRV U 2.09) Peptic stricture of esophagus documented as of this encounter Visit Diagnoses Diagnosis Problem with gastrostomy tube documented in this encounter Care Teams Special Delivery Clerk Relationship Specialty Start Date End Date Ana Gillespie APRN [address] [place] [address] PCP - General Family Medicine 02/03/19 documented as of this encounter
--- OUTSIDE RECORDS SUMMARY | 2024-02-29 19:23 | XMS_ITS | Encounter Summary ---
Author Organization [facility] Address [facility] [place] [address] Care Team Providers Care Auxiliary Equipment Tender Name Role Phone Ana Gillespie VAUGHN Primary Care Provider [phone] Encounter Details Date Type Department Care Team (Latest Contact Info) Description 12/07/2023 12:24 PM EDT - 12/07/2023 11:59 PM EDT Hospital [place] [phone] Hypoxemia Discharge Disposition: Home Social History Tobacco [...] meter kit. 1 each 0 12/14/2014 Insulin [place], Disposable, (BD INSULIN PEN NEEDLE UF MINI) 31 x 3/16 NeedleIndications:Josefina betes mellitus type 2, uncontrolled 1 Device by [facility].(Non-Drug; Combo Route) route 3 times daily as needed. 100 each 11 12/13/2014 documented as of this encounter Plan of Treatment Upcoming Encounters Date Type Department Care Team (Late st Contact Info) Description 03/10/2024 4:00 PM EDT Office Visit Cardiology at [address] [address] Milagros Hernandez MD [facility] [place] [address] Scheduled Procedures Name Priority Associated Diagnoses Date/Ti [...] PFT FEV1/FVC Pre-BD Z-Score -0.14 COMPAS PFT JQF82-99 Actual Pre-BD 1.66 % COMPAS PFT BXN24-85 Predicted 1.94 % COMPAS PFT EJF44-35 Pre-BD % of Predicted 86 % COMPAS PFT RNB08-67 Pre-BD Z-Score -0.41 COMPAS PFT DLCO Hb [...] Hypoxemia documented in this encounter Care Teams Auxiliary Equipment Tender Relationship Specialty Start Date End Date Ana Gillespie APRN [address] [place] [address] PCP - General Family Medicine 02/03/19 documented as of this encounter
--- OUTSIDE RECORDS SUMMARY | 2024-02-29 19:23 | XMS_ITS | Encounter Summary ---
Author Organization [facility] [place] [address] Care Team Providers Care Consolidator Name Role Phone Ana Gillespie APRN Primary Care Provider [phone] Encounter Details Date Type Department Care Team (Latest Contact Info) Description 02/07/2024 Travel Social History Tobacco Use Types Packs/Day [...] PM EDT Office Visit Cardiology at [address] [address] Milagros Hernandez MD [facility] [place] [address] Scheduled Procedures Name Priority Associated Diagnoses Date/Ti me EGD, UPPER GI ENDOSCOPY (WRV U 2.09) Peptic stricture of esophagus documented as of this encounter Visit Diagnoses Not on filedocumented in this encounter Care Teams Consolidator Relationship Specialty Start Date End Date Ana Gillespie APRN [address] [place] [address] PCP - General Family Medicine 02/03/19 documented as of this encounter
--- OUTSIDE RECORDS SUMMARY | 2024-02-29 19:23 | XMS_ITS | Encounter Summary ---
Author Organization [facility] Address [facility] [place] [address] Care Team Providers Care Way Inspector Name Role Phone Ana Gillespie APRN Primary Care Provider [phone] Encounter Details Date Type Department Care Team (Late st Contact Info) Description 10/05/2023 Telephone [place] [phone] Niru Mary Social History Tobacco Use Types [...] PM EDT Office Visit Cardiology at [address] [phone] Milagros Hernandez MD [facility] CARDIOLOGY [place] [id number] Scheduled Procedures Name Priority Associated Diagnoses Date/Ti me EGD, UPPER GI ENDOSCOPY (WRV U 2.09) Peptic stricture of esophagus documented as of this encounter Visit Diagnoses Not on filedocumented in this encounter Care Teams Way Inspector Relationship Specialty Start Date End Date Ana Gillespie APRN [address] [place] [address] PCP - General Family Medicine 02/03/19 documented as of this encounter
--- OUTSIDE RECORDS SUMMARY | 2024-02-29 19:23 | XMS_ITS | Encounter Summary ---
Author Organization [facility] [place] [address] Care Team Providers Care Commodity Buyer Name Role Phone Ana Gillespie APRN Primary Care Provider [phone] Encounter Details Date Type Department Care Team [...] PM EDT Office Visit Cardiology at [address] [address] Milagros Hernandez MD [facility] [place] [address] Scheduled Procedures Name Priority Associated Diagnoses Date/Ti me EGD, UPPER GI ENDOSCOPY (WRV U 2.09) Peptic stricture of esophagus documented as of this encounter Visit Diagnoses Not on filedocumented in this encounter Care Teams Commodity Buyer Relationship Specialty Start Date End Date Ana Gillespie APRN [address] [place] [address] PCP - General Family Medicine 02/03/19 documented as of this encounter
--- OUTSIDE RECORDS SUMMARY | 2024-02-29 19:23 | XMS_ITS | Encounter Summary ---
Author Organization [facility] Address [facility] [place] [address] Care Team Providers Care Boardmarker Name Role Phone Ana Gillespie VAUGHN Primary Care Provider [phone] Encounter Details Date Type Department Care Team (Latest Contact Info) Description 11/05/2023 6:41 AM EDT - 11/05/2023 9:54 AM EDT Hospital Encounter G[place] [address] David Dejesus MD [facility] [place] [address] Discharge Disposition: Home Social History Tobacco Use [...] better as expected. Wednesday-Wednesday Same Day Endo [phone] 7a-8p Otherwise contact [phone] and ask to speak to the manager investment banking information systems audit manager Follow-up care is a fam part of [...] 180 tablet 3 10/20/2021 Blood Sugar Diagnostic (DUNCAN & ToddTOUCH ULTRA TEST) StripIndications:Type 2 diabetes mellitus, uncontrolled [...] meter kit. 1 each 0 12/14/2014 Insulin [place], Disposable, (BD INSULIN PEN NEEDLE UF MINI) 31 x 3/16 NeedleIndications:Josefina betes mellitus type 2, uncontrolled 1 Device by [facility].(Non-Drug; Combo Route) route [...] escorted out of department via wheelchair with /patient transportation driver. documented in this encounter H&P Notes [...] glucose meter kit. 1 each 0 Insulin Diamond [place], Disposable, (BD INSULIN PEN NEEDLE UF MINI) 31 x 3/16 Needle 1 Device by [facility].(Non-Drug; Combo Route) route [...] 4:00 PM EDT Office Visit Cardiology at [address] [address] Milagros Hernandez MD [facility] CARDIOLOG[facility] [place] [id number] Scheduled Procedures Name Priority Associated Diagnoses Date/Ti me EGD, UPPER GI ENDOSCOPY (WRV U 2.09) Peptic stricture of esophagus documented as of this encounter Procedures Procedure Name Priority Date/Time Associated Diagnosis Comments Up Gi Endoscopy, Dilatn W Guide (17606) 11/05/2023 8:34 AM EDT Peptic stricture of esophagus Dilate Esophagus (19321) 11/05/2023 8:34 AM EDT Peptic stricture of esophagus POCT GLUCOSE Routine 11/05/2023 7:50 AM EDT documented in this encounter Results * POCT Glucose (11/05/2023 7:50 AM EDT) Glucose, POC 86 65 - 199 mg/dL [facility] Comment: Supplemental ranges: <140 mg/dL before meals <180 mg/dL all other times of the day Blood 11/05/2023 7:50 AM EDT 11/05/2023 7:50 AM EDT David Dejesus MD POINT OF CARE TEST ORDERABLES [facility] [place] [address] documented in this encounter Visit Diagnoses Not [...] CRNA) documented in this encounter Care Teams Boardmarker Relationship Specialty Start Date End Date Ana Gillespie APRN [address] [place] [address] PCP - General Family Medicine 02/03/19 documented as of this encounter
--- OUTSIDE RECORDS SUMMARY | 2024-02-29 19:23 | XMS_ITS | Encounter Summary ---
Author Organization [facility] Address [facility] [place] [address] Care Team Providers Care Construction Laborer Name Role Phone Ana Gillespie APRN Primary Care Provider [phone] Encounter Details Date Type Department Care Team (Late st Contact Info) Description 02/23/2024 Telephone [place] [phone] [facility] [place] [phone] Social History Tobacco Use Types Packs/Day Years [...] encounter Miscellaneous Notes * Telephone Encounter - Tenisha Fairchild, HUGH - 02/23/2024 4:49 PM EDT Rogelio () called back. He got formula shipped (4 cases) that are arriving in 2 days, but not enough syringes. He needs more than 8 syringes per month because he administers meds through her PEG and also sometimes gives formula with syringe. They get all gunked up and mL markers get washed with multiple washes. Access: PEG (placed 2022) Formula: Nutren 1.5 @ 72 ml/hr for total of 1000 ml per day Modular additive: Beneprotein powder 1 scoop per day Also uses 1 box of 4x4 split sponges per month and 2 rolls of tape per month Dr. Dejesus knows Jennifer, will ask if he is OK with signing tube feed orders. documented in this encounter Plan of Treatment Upcoming Encounters Date Type Department Care Team (Late st Contact Info) Description 03/10/2024 4:00 PM EDT Office Visit Cardiology at [address] [address] Milagros Hernandez MD [facility] [place] [address] Scheduled Procedures Name Priority Associated Diagnoses Date/Ti me EGD, UPPER GI ENDOSCOPY (WRV U 2.09) Peptic stricture of esophagus documented as of this encounter Visit Diagnoses Not on filedocumented in this encounter Care Teams Construction Laborer Relationship Specialty Start Date End Date Ana Gillespie APRN [address] [place] [address] PCP - General Family Medicine 02/03/19 documented as of this encounter
--- OUTSIDE RECORDS SUMMARY | 2024-02-29 19:23 | XMS_ITS | Encounter Summary ---
Author Organization [facility] Address [facility] [place] [address] Care Team Providers Care Automatic Head Sawyer Name Role Phone Ana Gillespie DAIRY CATTLE FARM WORKER Primary Care Provider [phone] Encounter Details Date Type Department Care Team (Late st Contact Info) Description 09/20/2023 Telephone [place] [address] Juice [place] RN Social History [...] placed for pt failed while visiting in [place]. Pt is currently at an Urgent Care in [place] to manage situation. Rogelio is calling [facility] to hopefully schedule apt for pt this coming . Forwarded. documented in this encounter Plan of Treatment Upcoming Encounters Date Type Department Care Team (Late st Contact Info) Description 03/10/2024 4:00 PM EDT Office Visit Cardiology at [address] [address] Milagros Hernandez MD [facility] [place] [address] Scheduled Procedures Name Priority Associated Diagnoses Date/Ti me EGD, UPPER GI ENDOSCOPY (WRV U 2.09) Peptic stricture of esophagus documented as of this encounter Visit Diagnoses Not on filedocumented in this encounter Care Teams Automatic Head Sawyer Relationship Specialty Start Date End Date Ana Gillespie APRN [address] [place] [address] PCP - General Family Medicine 02/03/19 documented as of this encounter
--- OUTSIDE RECORDS SUMMARY | 2024-02-29 19:23 | XMS_ITS | Encounter Summary ---
Author Organization [facility] [place] [address] Care Team Providers Care Application Specialist Name Role Phone Ana Gillespie APRN Primary Care Provider [phone] Encounter Details Date Type Department Care Team [...] PM EDT Office Visit Cardiology at [address] [address] Milagros Hernandez MD [facility] [place] [address] Scheduled Procedures Name Priority Associated Diagnoses Date/Ti me EGD, UPPER GI ENDOSCOPY (WRV U 2.09) Peptic stricture of esophagus documented as of this encounter Visit Diagnoses Not on filedocumented in this encounter Care Teams Application Specialist Relationship Specialty Start Date End Date Ana Gillespie APRN [address] [place] [address] PCP - General Family Medicine 02/03/19 documented as of this encounter
--- OUTSIDE RECORDS SUMMARY | 2024-02-29 19:23 | XMS_ITS | Encounter Summary ---
Author Organization [facility] [place] [address] Care Team Providers Care Technical Information Specialist Name Role Phone Ana Gillespie APRN Primary Care Provider [phone] Encounter Details Date Type Department Care Team (Late st Contact Info) Description 10/07/2023 10:41 AM EDT Anesthesia Event [place] [address] Alex Conley MD [facility] [place] [address] Valerie Vital CRNA [facility] [place] [address] Anesthesia Record Procedure Summary Procedure Name Responsible [...] by Sergey Jordan RN PIV 10/07/23; 1041; oaqs-mdq-eftfwr catheter system; 20 gauge, 1 in length; [...] Procedure Summary Date: 10/07/23 Room / Location: [facility] ENDO 1 / [facility] ENDOSCOPY Anesthesia Start: 1041 Anesthesia Stop: 1123 Procedure: EGD-ESOPHOGEAL DILATATION OVER GUIDE WIRE (WRVU 2.91) (Trunk) Diagnosis: Peptic stricture of esophagus (shedule one month - peptic stricture dilation) Surgeons: David Dejesus MD Responsible Provider: Anesthesia Type: MAC ASA Status: 3 All Anesthesia Providers: Student Nurse Bioinformaticist: Zenia Montiel Vitals Value Taken Time BP 148/72 10/07/23 1140 Temp Pulse Resp 15 10/07/23 1140 SpO2 100 % 10/07/23 1148 Pain Level 0 10/07/23 1140 Vitals shown include unfiled device data. Patient Location: PACU/[facility] Level of Consciousness: Conscious but Sleepy Pain [...] IR G-Tube Check/Change 11/27/2022 Hang Cooper PA [facility] RAD ??? IR G-TUBE CHECK/CHANGE 03/10/2023 IR G-Tube Check/Change 03/10/2023 Geronimo Chmabers, DO [facility] INTERVENTIONL RAD ??? IR G-TUBE CHECK/CHANGE 04/06/2023 IR G-Tube Check/Change 04/06/2023 Gavin Carrillo MD [facility] INTER[facility]IONL RAD ??? IR G-TUBE CHECK/CHANGE 05/09/2023 IR G-Tube Check/Change [facility] RAD ??? IR G-TUBE CHECK/CHANGE 07/09/2023 IR G-Tube Check/Change [facility] RAD ??? IR G-TUBE CHECK/CHANGE 09/17/2023 IR G-Tube Check/Change 09/17/2023 Hang Cooper PA [facility] INTERVENTION[facility] RAD ??? IR G-TUBE PLACEMENT 09/11/2022 IR G-Tube Placement 09/11/2022 Moustapha Hart MD [facility] INTERVENTIONL RAD ??? IR SUTURE RELEASE 09/25/2022 IR Suture Release 09/25/2022 Yoselin Ghosh PA [facility] INTER[facility]ION[facility] RAD ??? PERCUTANEOUS GASTROSTOMY N/A 09/11/2022 PERCUTANEOUS GASTROSTOMY performed by Aiden Folres MD at [facility] CATY ??? PRO COLONOSCOPY, BIOPSY N/A 03/20/2016 COLONOSCOPY FLEXIBLE, WITH BX performed by David Dejesus MD at [facility] ENDOSCOPY ??? PRO COLONOSCOPY, DIAGNOSTIC N/A 03/01/2020 COLONOSCOPY, DIAGNOSTIC performed by David Dejesus MD at [facility] ENDOSCOPY ??? PRO ENDOSCOPIC US EXAM, ESOPH N/A 03/31/2022 UPPER EUS- ENDOSCOPIC ULTRASOUND performed by David Dejesus MD at [facility] ENDOSCOPY ??? PRO UP GI ENDOSCOPY, BALL DIL, 30MM N/A 12/24/2022 EGD,WITH DILATION ESOPHAGUS WITH BALLOON,< 30 MM (WRVU 2.67) performed by David Dejesus [facility] ENDOSCOPY ??? PRO UP GI ENDOSCOPY, BALL DIL, 30MM N/A 01/12/2023 EGD,WITH DILATION ESOPHAGUS WITH BALLOON,< 30 MM (WRVU 2.67) performed by David Dejesus [facility] ENDOSCOPY ??? PRO UP GI ENDOSCOPY, BALL DIL, 30MM N/A 02/26/2023 EGD,WITH DILATION ESOPHAGUS WITH BALLOON,< 30 MM (WRVU 2.67) performed by David Dejesus [facility] ENDOSCOPY ??? PRO UP GI ENDOSCOPY, BALL DIL, 30MM N/A 03/16/2023 EGD,WITH DILATION ESOPHAGUS WITH BALLOON,< 30 MM (WRVU 2.67) performed by David Dejesus [facility] ENDOSCOPY ??? PRO UP GI ENDOSCOPY, BALL DIL, 30MM N/A 03/30/2023 EGD,WITH DILATION ESOPHAGUS WITH BALLOON,< 30 MM (WRVU 2.67) performed by David Dejesus [facility] ENDOSCOPY ??? PRO UP GI ENDOSCOPY, BALL DIL, 30MM N/A 04/30/2023 EGD,WITH DILATION ESOPHAGUS WITH BALLOON,< 30 MM (WRVU 2.67) performed by David Dejesus [facility] ENDOSCOPY ??? PRO UP GI ENDOSCOPY, BALL DIL, 30MM N/A 06/01/2023 EGD,WITH DILATION ESOPHAGUS WITH BALLOON,< 30 MM (WRVU 2.67) performed by David Dejesus [facility] ENDOSCOPY ??? PRO UP GI ENDOSCOPY, BALL DIL, 30MM N/A 08/02/2023 EGD,WITH DILATION ESOPHAGUS WITH BALLOON,< 30 MM (WRVU 2.67) performed by David Dejesus [facility] ENDOSCOPY ??? PRO UPPER GI ENDOSCOPY, BIOPSY N/A 04/03/2014 UPPER GASTROINTESTINAL ENDOSCOPY,WITH BIOPSY SINGLE OR MULTIPLE performed by David Dejesus [facility] ENDOSCOPY ??? PRO UPPER GI ENDOSCOPY, BIOPSY N/A 03/20/2016 EGD WITH BIOPSY performed by David Dejesus MD at [facility] ENDOSCOPY ??? PRO UPPER GI ENDOSCOPY, BIOPSY N/A 11/22/2018 EGD WITH BIOPSY (WRVU 2.49) performed by David Dejesus MD at [facility] ENDOSCOPY ??? PRO UPPER GI ENDOSCOPY, BIOPSY N/A 03/01/2020 UPPER GASTROINTESTINAL ENDOSCOPY,WITH BIOPSY SINGLE OR MULTIPLE (WRVU 2.49) performed by David Dejesus MD at [facility] ENDOSCOPY ??? PRO UPPER GI ENDOSCOPY, BIOPSY N/A 09/23/2021 EGD WITH BIOPSY (WRVU 2.49) performed by David Dejesus MD at [facility] ENDOSCOPY ??? PRO UPPER GI ENDOSCOPY, BIOPSY N/A 03/31/2022 EGD WITH BIOPSY (WRVU 2.49) performed by David Dejesus MD at [facility] ENDOSCOPY ??? PRO UPPER GI ENDOSCOPY, BIOPSY N/A 07/03/2022 EGD WITH BIOPSY (WRVU 2.49) performed by David Dejesus MD at [facility] ENDOSCOPY ??? PRO UPPER GI ENDOSCOPY, DIAGNOSTIC N/A 04/03/2014 EGD, UPPER GI ENDOSCOPY performed by David Dejesus MD at [facility] ENDOSCOPY ??? PRO UPPER GI ENDOSCOPY, DIAGNOSTIC N/A 03/01/2020 EGD, UPPER GI ENDOSCOPY performed by David Dejesus MD at [facility] ENDOSCOPY ??? PRO UPPER GI ENDOSCOPY, DIAGNOSTIC N/A 09/09/2022 EGD, UPPER GI ENDOSCOPY (WRVU 2.09) performed by Ayo Russ MD at [facility] MAIN OR Social History Tobacco [...] risks discussed with patient. Plan discussed with FARM SPECIALIST. Anesthesia Screening * Anesthesia Preprocedure Evaluation - [...] IR G-Tube Check/Change 11/27/2022 Hang Cooper PA [facility] RAD ??? IR G-TUBE CHECK/CHANGE 03/10/2023 IR G-Tube Check/Change 03/10/2023 Geronimo Chambers, DO [facility] INTER[facility]ION[facility] RAD ??? IR G-TUBE CHECK/CHANGE 04/06/2023 IR G-Tube Check/Change 04/06/2023 Gavin Carrillo MD [facility] INTER[facility] RAD ??? IR G-TUBE CHECK/CHANGE 05/09/2023 IR G-Tube Check/Change [facility] RAD ??? IR G-TUBE CHECK/CHANGE 07/09/2023 IR G-Tube Check/Change [facility] RAD ??? IR G-TUBE PLACEMENT 09/11/2022 IR G-Tube Placement 09/11/2022 Moustapha Hart MD [facility] INTER[facility] RAD ??? IR SUTURE RELEASE 09/25/2022 IR Suture Release 09/25/2022 Yoselin Ghosh PA [facility] INTER[facility] RAD ??? PERCUTANEOUS GASTROSTOMY N/A 09/11/2022 PERCUTANEOUS GASTROSTOMY performed by Aiden Flores MD at [facility] CATY ??? PRO COLONOSCOPY, BIOPSY N/A 03/20/2016 COLONOSCOPY FLEXIBLE, WITH BX performed by David Dejesus MD at [facility] ENDOSCOPY ??? PRO COLONOSCOPY, DIAGNOSTIC N/A 03/01/2020 COLONOSCOPY, DIAGNOSTIC performed by David Dejesus MD at [facility] ENDOSCOPY ??? PRO ENDOSCOPIC US EXAM, ESOPH N/A 03/31/2022 UPPER EUS- ENDOSCOPIC ULTRASOUND performed by David Dejesus MD at [facility] ENDOSCOPY ??? PRO UP GI ENDOSCOPY, BALL DIL, 30MM N/A 12/24/2022 EGD,WITH DILATION ESOPHAGUS WITH BALLOON,< 30 MM (WRVU 2.67) performed by David Dejesus [facility] ENDOSCOPY ??? PRO UP GI ENDOSCOPY, BALL DIL, 30MM N/A 01/12/2023 EGD,WITH DILATION ESOPHAGUS WITH BALLOON,< 30 MM (WRVU 2.67) performed by David Dejesus [facility] ENDOSCOPY ??? PRO UP GI ENDOSCOPY, BALL DIL, 30MM N/A 02/26/2023 EGD,WITH DILATION ESOPHAGUS WITH BALLOON,< 30 MM (WRVU 2.67) performed by David Dejesus [facility] ENDOSCOPY ??? PRO UP GI ENDOSCOPY, BALL DIL, 30MM N/A 03/16/2023 EGD,WITH DILATION ESOPHAGUS WITH BALLOON,< 30 MM (WRVU 2.67) performed by David Dejesus [facility] ENDOSCOPY ??? PRO UP GI ENDOSCOPY, BALL DIL, 30MM N/A 03/30/2023 EGD,WITH DILATION ESOPHAGUS WITH BALLOON,< 30 MM (WRVU 2.67) performed by David Dejesus [facility] ENDOSCOPY ??? PRO UP GI ENDOSCOPY, BALL DIL, 30MM N/A 04/30/2023 EGD,WITH DILATION ESOPHAGUS WITH BALLOON,< 30 MM (WRVU 2.67) performed by David Dejesus [facility] ENDOSCOPY ??? PRO UP GI ENDOSCOPY, BALL DIL, 30MM N/A 06/01/2023 EGD,WITH DILATION ESOPHAGUS WITH BALLOON,< 30 MM (WRVU 2.67) performed by David Dejesus [facility] ENDOSCOPY ??? PRO UP GI ENDOSCOPY, BALL DIL, 30MM N/A 08/02/2023 EGD,WITH DILATION ESOPHAGUS WITH BALLOON,< 30 MM (WRVU 2.67) performed by David Dejesus [facility] ENDOSCOPY ??? PRO UPPER GI ENDOSCOPY, BIOPSY N/A 04/03/2014 UPPER GASTROINTESTINAL ENDOSCOPY,WITH BIOPSY SINGLE OR MULTIPLE performed by David Dejesus [facility] ENDOSCOPY ??? PRO UPPER GI ENDOSCOPY, BIOPSY N/A 03/20/2016 EGD WITH BIOPSY performed by David Dejesus MD at [facility] ENDOSCOPY ??? PRO UPPER GI ENDOSCOPY, BIOPSY N/A 11/22/2018 EGD WITH BIOPSY (WRVU 2.49) performed by David Dejesus MD at [facility] ENDOSCOPY ??? PRO UPPER GI ENDOSCOPY, BIOPSY N/A 03/01/2020 UPPER GASTROINTESTINAL ENDOSCOPY,WITH BIOPSY SINGLE OR MULTIPLE (WRVU 2.49) performed by David Dejesus MD at [facility] ENDOSCOPY ??? PRO UPPER GI ENDOSCOPY, BIOPSY N/A 09/23/2021 EGD WITH BIOPSY (WRVU 2.49) performed by David Dejesus MD at [facility] ENDOSCOPY ??? PRO UPPER GI ENDOSCOPY, BIOPSY N/A 03/31/2022 EGD WITH BIOPSY (WRVU 2.49) performed by David Dejesus MD at [facility] ENDOSCOPY ??? PRO UPPER GI ENDOSCOPY, BIOPSY N/A 07/03/2022 EGD WITH BIOPSY (WRVU 2.49) performed by David Dejesus MD at [facility] ENDOSCOPY ??? PRO UPPER GI ENDOSCOPY, DIAGNOSTIC N/A 04/03/2014 EGD, UPPER GI ENDOSCOPY performed by David Dejesus MD at [facility] ENDOSCOPY ??? PRO UPPER GI ENDOSCOPY, DIAGNOSTIC N/A 03/01/2020 EGD, UPPER GI ENDOSCOPY performed by David Dejesus MD at [facility] ENDOSCOPY ??? PRO UPPER GI ENDOSCOPY, DIAGNOSTIC N/A 09/09/2022 EGD, UPPER GI ENDOSCOPY (WRVU 2.09) performed by Ayo Russ MD at [facility] MAIN OR Social History Tobacco [...] PM EDT Office Visit Cardiology at [address] [place] [address] Milagros Hernandez MD [facility] [place] [address] Scheduled Procedures Name Priority Associated Diagnoses Date/Ti [...] 200 mL infusion Intravenous, PRN, Starting on Ebtty 10/07/23 at 1100, Until Betty 10/07/23 at [...] 1052, Until Betty 10/07/23 at 1126, Anesthesia Intra-op Given 10/07/2023 10:52 AM EDT 150 mg succinylcholine (Anectine;Quelicin) (20 mg/mL) injection Intravenous, PRN, Starting on Betty 10/07/23 at 1054, Until Betty 10/07/23 at 1126, Anesthesia Intra-op, Routine Given 10/07/2023 10:53 AM EDT 80 mg documented in this encounter Care Teams Technical Information Specialist Relationship Specialty Start Date End Date Ana Gillespie APRN [address] [place] [address] PCP - General Family Medicine 02/03/19 documented as of this encounter
--- OUTSIDE RECORDS SUMMARY | 2024-02-29 19:23 | XMS_ITS | Encounter Summary ---
Author Organization [facility] Address [facility] [place] [address] Care Team Providers Care Timber Rider Name Role Phone Ana Gillespie VAUGHN Primary Care Provider Encounter Details Date Type Department Care Team (Late st Contact Info) Description 11/05/2023 8:30 AM EDT - 11/05/2023 9:00 AM EDT Surgery [place] [address] David Dejesus MD [facility] [place] [address] EGD-DILATATION BY SOUND OR BOUGIE, SINGLE OR [...] better as expected. Wednesday-Wednesday Same Day Endo [phone] 7a-8p Otherwise contact [phone] and ask to speak to the furniture mover driver client support consultant Follow-up care is a fam part of [...] 180 tablet 3 10/20/2021 Blood Sugar Diagnostic ([employer] Bond Rating AgencyTOUCH ULTRA TEST) StripIndications:Type 2 diabetes mellitus, uncontrolled [...] meter kit. 1 each 0 12/14/2014 Insulin Manteca, Disposable, (BD INSULIN PEN NEEDLE UF MINI) 31 x 3/16 NeedleIndications:Josefina betallison mellitus type 2, uncontrolled 1 Device by [facility] [...] escorted out of department via wheelchair with /p d driver. documented in this encounter H&P Notes [...] glucose meter kit. 1 each 0 Insulin Manteca, Disposable, (BD INSULIN PEN NEEDLE UF MINI) [...] PM EDT Office Visit Cardiology at [address] [address] Milagros Hernandez MD [facility] [place] [address] Scheduled Procedures Name Priority Associated Diagnoses Date/Ti me EGD, UPPER GI ENDOSCOPY (WRV U 2.09) Peptic stricture of esophagus documented as of this encounter Procedures Procedure Name Priority Date/Time Associated Diagnosis Comments Up Gi Endoscopy, Dilatn W Guide (71009) 11/05/2023 8:34 AM EDT Peptic stricture of esophagus Dilate Esophagus (50473) 11/05/2023 8:34 AM EDT Peptic stricture of esophagus POCT GLUCOSE Routine 11/05/2023 7:50 AM EDT documented in this encounter Results * POCT Glucose (11/05/2023 7:50 AM EDT) Glucose, POC 86 65 - 199 mg/dL [facility] Comment: Supplemental ranges: <140 mg/dL before meals <180 mg/dL all other times of the day Blood 11/05/2023 7:50 AM EDT 11/05/2023 7:50 AM EDT David Dejesus MD POINT OF CARE TEST ORDERABLES [facility] [place] [address] documented in this encounter Visit Diagnoses Diagnosis [...] CRNA)0900 (Anesthesia Volume Adjustment - Provider: Annie Alfnoso CRNA) documented in this encounter Care Teams Timber Rider Relationship Specialty Start Date End Date Ana Gillespie APRN [address] [place] [address] PCP - General Family Medicine 02/03/19 documented as of this encounter
--- OUTSIDE RECORDS SUMMARY | 2024-02-29 19:24 | XMS_ITS | Encounter Summary ---
Author Organization [facility] [place] [address] Care Team Providers Care Director Of Accreditation Name Role Phone Ana Gillespie APRN Primary [...] PM EDT Office Visit Cardiology at [address] [address] Milagros Hernandez MD [facility] [place] [address] Scheduled Procedures Name Priority Associated Diagnoses Date/Ti me EGD, UPPER GI ENDOSCOPY (WRV U 2.09) Peptic stricture of esophagus documented as of this encounter Visit Diagnoses Not on filedocumented in this encounter Care Teams Director Of Accreditation Relationship Specialty Start Date End Date Ana Gillespie APRN [address] [place] [address] PCP - General Family Medicine 02/03/19 documented as of this encounter
--- OUTSIDE RECORDS SUMMARY | 2024-02-29 19:24 | XMS_ITS | Encounter Summary ---
Author Organization [facility] [place] [address] Care Team Providers Care Nonprofit Manager Name Role Phone Ana Gillespie TEST KITCHEN HOME ECONOMIST Primary Care Provider [phone] Encounter Details Date Type Department Care Team (Late st Contact Info) Description 09/02/2023 Telephone [place] [address] Parris Maravilla Social History Tobacco [...] returned, it can be handled by: Endo Bender Hand please park to me documented in this encounter Plan of Treatment Upcoming Encounters Date Type Department Care Team (Late st Contact Info) Description 03/10/2024 4:00 PM EDT Office Visit Cardiology at [address] [phone] Milagros Hernandez MD [facility] [address] Scheduled Procedures Name Priority Associated Diagnoses Date/Ti me EGD, UPPER GI ENDOSCOPY (WRV U 2.09) Peptic stricture of esophagus documented as of this encounter Visit Diagnoses Not on filedocumented in this encounter Care Teams Nonprofit Manager Relationship Specialty Start Date End Date Ana Gillespie APRN [address] [place] [address] PCP - General Family Medicine 02/03/19 documented as of this encounter
--- OUTSIDE RECORDS SUMMARY | 2024-02-29 19:24 | XMS_ITS | Encounter Summary ---
Author Organization [facility] [place] [address] Care Team Providers Care Greensman Name Role Phone Ana Gillespie VAUGHN Primary Care Provider [phone] Encounter Details Date Type Department Care Team (Late st Contact Info) Description 06/11/2023 Telephone [place] [address] Chiquita James, RN Social History [...] PM EDT Office Visit Cardiology at [address] [phone] Milagros Hernandez MD [facility] [place] [address] Scheduled Procedures Name Priority Associated Diagnoses Date/Ti me EGD, UPPER GI ENDOSCOPY (WRV U 2.09) Peptic stricture of esophagus documented as of this encounter Visit Diagnoses Not on filedocumented in this encounter Care Teams Greensman Relationship Specialty Start Date End Date Ana Gillespie APRN [address] [place] [address] PCP - General Family Medicine 02/03/19 documented as of this encounter
--- OUTSIDE RECORDS SUMMARY | 2024-02-29 19:24 | XMS_ITS | Encounter Summary ---
Author Organization [facility] [place] [address] Care Team Providers Care Knock Out Hand Name Role Phone Ana Gillespie REGULATORY ASSOCIATE Primary Care Provider [phone] Encounter Details Date Type Department Care Team (Late st Contact Info) Description 08/11/2023 Telephone Gastroenterology at [facility] [place] [address] Parris Maravilla Social History Tobacco Use Types [...] - 08/11/2023 12:09 PM EDT Jennifer Irving [id number] Diagnosis/Indication: shedule one month - peptic stricture [...] your procedure. Who will likely be your milk delivery driver for the procedure? *Please Verify [...] PM EDT Office Visit Cardiology at [address] [address] Milagros Hernandez MD [facility] [place] [address] Scheduled Procedures Name Priority Associated Diagnoses Date/Ti me EGD, UPPER GI ENDOSCOPY (WRV U 2.09) Peptic stricture of esophagus documented as of this encounter Visit Diagnoses Not on filedocumented in this encounter Care Teams Knock Out Hand Relationship Specialty Start Date End Date Ana Gillespie APRN [address] [place] [address] PCP - General Family Medicine 02/03/19 documented as of this encounter
--- OUTSIDE RECORDS SUMMARY | 2024-02-29 19:24 | XMS_ITS | Encounter Summary ---
Author Organization [facility] Address [facility] [place] [address] Care Team Providers Care Stoner Hand Name Role Phone Ana Gillespie APRN Primary Care Provider Reason for Referral * Consultation (Routine) - Authorized Specialty Diagnoses / Procedures Referred By Esperanza rodríguez Referred To Contact Pulmonology Diagnoses Hypoxemia Ana Gillespie APRN [address] [place] [address] Noe Cuenca MD [facility] [place] [address] Referral ID Status Reason Start Date Expiration Date Visits Requested Visits Authorized [id number] Authorized Consult, Test & Treat PCP Updated and/or Approved 05/27/2023 05/26/2024 6 6 Encounter Details Date Type Department Care Team (Late Contact Info) Description 05/27/2023 Transcribe Orders eD Incoming Referrals [phone] Ana Gillespie APRN [address] [place], [place] [address] Hypoxemia Social History Tobacco Use Types Packs/Day [...] PM EDT Office Visit Cardiology at [address] [address] Milagros Hernandez MD [facility] [place] [address] Scheduled Procedures Name Priority Associated Diagnoses Date/Ti me EGD, UPPER GI ENDOSCOPY (WRV U 2.09) Peptic stricture of esophagus Scheduled Referrals Name Type Priority Associated Diagnoses Order Schedule Referral to Pulmonology Outpatient Referral Routine Hypoxemia Ordered: 05/27/2023 documented as of this encounter Visit Diagnoses Diagnosis Hypoxemia documented in this encounter Care Teams Stoner Hand Relationship Specialty Start Date End Date Ana Gillespie APRN [address] [place] [address] PCP - General Family Medicine 02/03/19 documented as of this encounter
--- OUTSIDE RECORDS SUMMARY | 2024-02-29 19:24 | XMS_ITS | Encounter Summary ---
[place] [address] Care Team Providers Care Business Machines Teacher Name Role Phone Ana Gillespie VAUGHN Primary Care Provider [phone] Reason for Referral * Diagnostic Test (Routine) - Closed Specialty Diagnoses / Procedures Referred By Esperanza rodríguez Referred To Contact Radiology Diagnoses Problem with gastrostomy tube Procedures IR G-Tube Check/Change Nisha Chavez MD [facility] [place] [address] [place] [address] Referral ID Status Reason Start Date Expiration Date V isits Requested Visits Authorized [id number] Closed Specialty Service Requested 05/09/2023 11/06/2024 1 1 Reason for Visit * Diagnostic Test (Routine) - Closed Specialty Diagnoses / Procedures Referred By Esperanza rodríguez Referred To Contact Radiology Diagnoses Problem with gastrostomy tube Procedures IR G-Tube Check/Change Nisha Chavez MD [facility] [place] [address] [place] [address] Referral ID Status Reason Start Date Expiration Date V isits Requested Visits Authorized [id number] Closed Specialty Service Requested 05/09/2023 11/06/2024 1 1 Encounter Details Date Type Department Care Team (Latest Contact Info) Description 05/09/2023 11:00 AM EST - 05/09/2023 11:59 PM EST Hospital Encounter Radiology at [facility] [place] [phone] Azeem Alarcon MD [facility] [place] [address] Problem with gastrostomy tube Discharge Disposition: Home [...] meter kit. 1 each 0 12/14/2014 Insulin [place], Disposable, (BD INSULIN PEN NEEDLE UF MINI) [...] PM EDT Office Visit Cardiology at [address] [address] Milagros Hernandez MD [facility] [place] [address] Scheduled Procedures Name Priority Associated Diagnoses Date/Ti [...] documented in this encounter Care Teams Business Machines Teacher Relationship Specialty Start Date End Date Ana Gillespie APRN [address] [place] [address] PCP - General Family Medicine 02/03/19 documented as of this encounter
--- OUTSIDE RECORDS SUMMARY | 2024-02-29 19:24 | XMS_ITS | Encounter Summary ---
Author Organization [facility] Address [facility] [place] [address] Care Team Providers Care Materials Recycler Name Role Phone Ana Gillespie APRN Primary Care Provider [phone] Encounter Details Date Type Department Care Team (Late st Contact Info) Description 06/01/2023 9:02 AM EST Anesthesia [place] [phone] Kit Dutta MD [facility] [place] [address] Nichelle Dodson MD [facility] [place] [address] Anesthesia Record Procedure Summary Procedure Name Responsible [...] by Sergey Jordan RN PIV 06/01/23; 0836; nanp-bbx-pztkyl catheter system; 22 gauge, 1 in length; [...] cm; Removal Date: 06/01/23; Removal Time: 93706/01/23 09 by Cristine Gomez CRNA 06/01/23 0938 by [...] Procedure Summary Date: 06/01/23 Room / Location: [facility] ENDO 2 / [facility] ENDOSCOPY Anesthesia Start: 901 Anesthesia Stop: 951 Procedure: EGD,WITH DILATION ESOPHAGUS WITH BALLOON,< 30 MM (WRVU 2.67) (Trunk) Diagnosis: Peptic stricture of esophagus (repeat petic stricture dilation - please schedule within two weeks) Surgeons: David Dejesus MD Responsible Provider: Kit Dutta MD Anesthesia Type: MAC ASA Status: 3 All Anesthesia Providers: Anesthesiologist: Kit Dutta MD INTERNET SECURITY SPECIALIST: Cristine Gomez CRNA Vitals Value Taken Time [...] IR G-Tube Check/Change 11/27/2022 Hang Cooper, ROSLYN [facility] INTERVENTIONL RAD ??? IR G-TUBE CHECK/CHANGE 03/10/2023 IR G-Tube Check/Change 03/10/2023 Geronimo Chambers, [facility] INTERVENTIONL RAD ??? IR G-TUBE CHECK/CHANGE 04/06/2023 IR G-Tube Check/Change 04/06/2023 Gavin Carrillo MD [facility] INTERVENTIONL RAD ??? IR G-TUBE CHECK/CHANGE 05/09/2023 IR G-Tube Check/Change [facility] INTERVENTIONL RAD ??? IR G-TUBE PLACEMENT 09/11/2022 IR G-Tube Placement 09/11/2022 Moustapha Hart MD [facility] INTERVENTIONL RAD ??? IR SUTURE RELEASE 09/25/2022 IR Suture Release 09/25/2022 Yoselin Ghosh PA [facility] INTERVENTIONL RAD ??? PERCUTANEOUS GASTROSTOMY N/A 09/11/2022 PERCUTANEOUS GASTROSTOMY performed by Aiden Flores MD at [facility] CATY ??? PRO COLONOSCOPY, BIOPSY N/A 03/20/2016 COLONOSCOPY FLEXIBLE, WITH BX performed by David Dejesus MD at [facility] ENDOSCOPY ??? PRO COLONOSCOPY, DIAGNOSTIC N/A 03/01/2020 COLONOSCOPY, DIAGNOSTIC performed by David Dejesus MD at [facility] ENDOSCOPY ??? PRO ENDOSCOPIC US EXAM, ESOPH N/A 03/31/2022 UPPER EUS- ENDOSCOPIC ULTRASOUND performed by David Dejesus MD at [facility] ENDOSCOPY ??? PRO UP GI ENDOSCOPY, BALL DIL, 30MM N/A 12/24/2022 EGD,WITH DILATION ESOPHAGUS WITH BALLOON,< 30 MM (WRVU 2.67) [facility] ENDOSCOPY ??? PRO UP GI ENDOSCOPY, BALL DIL, 30MM N/A 01/12/2023 EGD,WITH DILATION ESOPHAGUS WITH BALLOON,< 30 MM (WRVU 2.67) performed by David Dejesus MDat [facility] ENDOSCOPY ??? PRO UP GI ENDOSCOPY, BALL DIL, 30MM N/A 02/26/2023 EGD,WITH DILATION ESOPHAGUS WITH BALLOON,< 30 MM (WRVU 2.67) performed by David Dejesus [facility] ENDOSCOPY ??? PRO UP GI ENDOSCOPY, BALL DIL, 30MM N/A 03/16/2023 EGD,WITH DILATION ESOPHAGUS WITH BALLOON,< 30 MM (WRVU 2.67) performed by David Dejesus [facility] ENDOSCOPY ??? PRO UP GI ENDOSCOPY, BALL DIL, 30MM N/A 03/30/2023 EGD,WITH DILATION ESOPHAGUS WITH BALLOON,< 30 MM (WRVU 2.67) performed by David Dejesus [facility] ENDOSCOPY ??? PRO UP GI ENDOSCOPY, BALL DIL, 30MM N/A 04/30/2023 EGD,WITH DILATION ESOPHAGUS WITH BALLOON,< 30 MM (WRVU 2.67) performed by David Dejesus [facility] ENDOSCOPY ??? PRO UPPER GI ENDOSCOPY, BIOPSY N/A 04/03/2014 UPPER GASTROINTESTINAL ENDOSCOPY,WITH BIOPSY SINGLE OR MULTIPLE performed by David Dejesus [facility] ENDOSCOPY ??? PRO UPPER GI ENDOSCOPY, BIOPSY N/A 03/20/2016 EGD WITH BIOPSY performed by David Dejesus MD at [facility] ENDOSCOPY ??? PRO UPPER GI ENDOSCOPY, BIOPSY N/A 11/22/2018 EGD WITH BIOPSY (WRVU 2.49) performed by David Dejesus MD at [facility] ENDOSCOPY ??? PRO UPPER GI ENDOSCOPY, BIOPSY N/A 03/01/2020 UPPER GASTROINTESTINAL ENDOSCOPY,WITH BIOPSY SINGLE OR MULTIPLE (WRVU 2.49) performed by David Dejesus MD at [facility] ENDOSCOPY ??? PRO UPPER GI ENDOSCOPY, BIOPSY N/A 09/23/2021 EGD WITH BIOPSY (WRVU 2.49) performed by David Dejesus MD at [facility] ENDOSCOPY ??? PRO UPPER GI ENDOSCOPY, BIOPSY N/A 03/31/2022 EGD WITH BIOPSY (WRVU 2.49) performed by David Dejesus MD at [facility] ENDOSCOPY ??? PRO UPPER GI ENDOSCOPY, BIOPSY N/A 07/03/2022 EGD WITH BIOPSY (WRVU 2.49) performed by David Dejesus MD at [facility] ENDOSCOPY ??? PRO UPPER GI ENDOSCOPY, DIAGNOSTIC N/A 04/03/2014 EGD, UPPER GI ENDOSCOPY performed by David Dejesus MD at [facility] ENDOSCOPY ??? PRO UPPER GI ENDOSCOPY, DIAGNOSTIC N/A 03/01/2020 EGD, UPPER GI ENDOSCOPY performed by David Dejesus MD at [facility] ENDOSCOPY ??? PRO UPPER GI ENDOSCOPY, DIAGNOSTIC N/A 09/09/2022 EGD, UPPER GI ENDOSCOPY (WRVU 2.09) performed by Ayo Russ MD at [facility] MAIN OR Social History Tobacco [...] - Other Informed Consent: Plan discussed with INTERNET SECURITY SPECIALIST. Anesthesia Screening documented in this encounter Plan of Treatment Upcoming Encounters Date Type Department Care Team (Late st Contact Info) Description 03/10/2024 4:00 PM EDT Office Visit Cardiology at [address] [address] Milagros Hernandez MD [facility] [place] [address] Scheduled Procedures Name Priority Associated Diagnoses Date/Ti [...] mg documented in this encounter Care Teams Materials Recycler Relationship Specialty Start Date End Date Ana Gillespie APRN [address] [place] [address] PCP - General Family Medicine 02/03/19 documented as of this encounter
--- OUTSIDE RECORDS SUMMARY | 2024-02-29 19:24 | XMS_ITS | Encounter Summary ---
Author Organization [facility] Address [facility] [place] [address] Care Team Providers Care Barbering Instructor Name Role Phone Ana Gillespie MANAGER CARD Primary Care Provider Encounter Details Date Type Department Care Team (Late st Contact Info) Description 08/02/2023 11:00 AM EDT - 08/02/2023 12:00 PM EDT [place] [phone] David Dejesus MD [facility] [place] [address] EGD,WITH DILATION ESOPHAGUS WITH BALLOON,< 30 MM [...] the day after the procedure, use an xrml-fzc-wkrytvq spray to numb your throat. Sucking on [...] occurs, please contact your Doctor. Please call [phone] before 8pm Mon-Fri with problems, questions or concerns. If you call after 8pm or on weekends, call the Hospital at [phone] and ask to speak to the Sql Bi Developer chain builder loom control and the dry press operator will contact that person for you. When should you call for help? Call [phone] anytime you think you may need emergency [...] any problems. Where can you learn more? [facility] View your After Visit Summary and more online at [email or web address] If you would like to provide feedback about your hospital experience, please call the Office of Patient and Family Relations at . If you have received this After Visit Summary in error, please immediately return it in person to the department, or notify the [facility] Privacy Office by calling toll free at between the hours of 8AM and 5PM to arrange for our retrieval of the documents at no cost to you. Content Version: 12.2 ?? [id number] [employer]. Care instructions adapted under license by [facility]. If you have questions about a medical condition or this instruction, always ask your healthcare professional. [employer] disclaims any warranty or liability for your [...] the day after the procedure, use an apso-suk-voehwji spray to numb your throat. Sucking on [...] occurs, please contact your Doctor. Please call [phone] before 8pm Mon-Fri with problems, questions or concerns. If you call after 8pm or on weekends, call the Hospital at [phone] and ask to speak to the Sql Bi Developer chain builder loom control and the dry press operator will contact that person for you. When should you call for help? Call [phone] anytime you think you may need emergency [...] any problems. Where can you learn more? [facility] View your After Visit Summary and more online at [email or web address] If you would like to provide feedback about your hospital experience, please call the Office of Patient and Family Relations at . If you have received this After Visit Summary in error, please immediately return it in person to the department, or notify the [facility] Privacy Office by calling toll free at between the hours of 8AM and 5PM to arrange for our retrieval of the documents at no cost to you. Content Version: 12.2 ?? [id number] [employer]. Care instructions adapted under license by [facility]. If you have questions about a medical condition or this instruction, always ask your healthcare professional. [employer] disclaims any warranty or liability for your [...] meter kit. 1 each 0 12/14/2014 Insulin [place], Disposable, (BD INSULIN PEN NEEDLE UF MINI) 31 x 07/23 NeedleIndications:Josefina betes mellitus type 2, uncontrolled 1 Device by [facility]Non-Drug; Combo Route) route 3 times daily as [...] PM EDT Office Visit Cardiology at [address] [address] [facility] [place] [address] Scheduled Procedures Name Priority Associated Diagnoses Date/Ti wy EGD, UPPER GI ENDOSCOPY (WRV U 2.09) Peptic stricture of esophagus documented as of this encounter Procedures Procedure Name Priority Date/Time Associated Diagnosis Comments Up Gi Endoscopy, Ball Dil, 30Mm (21785) 08/02/2023 11:01 AM EDT Peptic stricture of esophagus UPPER GI ENDOSCOPY Routine 08/02/2023 10 :49 AM EDT POCT GLUCOSE Routine 08/02/2023 9:54 AM EDT documented in this encounter Results * UPPER GI ENDOSCOPY (08/02/2023 10:49 AM EDT) [facility] UPPER GI ENDOSCOPY [facility] Endoscopy Procedure Date: 08/02/2023 10:49 AM ? Patient Name: Jennifer Irving ? Date of : 1960 ? Age: 63 ? Order #: [id number] ? Instrument Name: [id number] ? Procedure: ? Upper GI endoscopy Indications: [...] GENERAL SURGICAL ORD ERABLES Performing Organization Address [facility] de Phone Number [employer]ATION * POCT Glucose (08/02/2023 9:54 AM EDT) Glucose, POC 81 65 - 199 mg/dL [facility] Comment: Supplemental ranges: <140 mg/dL before meals <180 mg/dL all other times of the day Blood 08/02/2023 9:54 AM EDT 08/02/2023 9:54 AM EDT David Dejesus MD POINT OF CARE TEST ORDERABLES Performing Organization Address [facility] Co de Phone Number [facility] [place] [address] documented in this encounter Visit Diagnoses Diagnosis [...] CRNA) documented in this encounter Care Teams Barbering Instructor Relationship Specialty Start Date End Date Ana Gillespie APRN [address] [place] [address] PCP - General Family Medicine 02/03/19 documented as of this encounter
--- OUTSIDE RECORDS SUMMARY | 2024-02-29 19:24 | XMS_ITS | Encounter Summary ---
Author Organization [facility] [place] [address] Care Team Providers Care Palm And Back Forger Name Role Phone Ana Gillespie VAUGHN Primary Care Provider [phone] Encounter Details Date Type Department Care Team (Late st Contact Info) Description 08/10/2023 Telephone [place] [address] Chiquita James, RN Social History [...] PM EDT Office Visit Cardiology at [address] [phone] Milagros Hernandez MD [facility] [place] [place] [address] Scheduled Procedures Name Priority Associated Diagnoses Date/Ti me EGD, UPPER GI ENDOSCOPY (WRV U 2.09) Peptic stricture of esophagus documented as of this encounter Visit Diagnoses Not on filedocumented in this encounter Care Teams Palm And Back Forger Relationship Specialty Start Date End Date Ana Gillespie APRN [address] [place] [address] PCP - General Family Medicine 02/03/19 documented as of this encounter
--- OUTSIDE RECORDS SUMMARY | 2024-02-29 19:24 | XMS_ITS | Encounter Summary ---
Author Organization [facility] [place] [address] Care Team Providers Care Data Deliverables Manager Name Role Phone Ana Gillespie APRN Primary Care Provider [phone] Encounter Details Date Type Department Care Team [...] PM EDT Office Visit Cardiology at [address] [address] Milagros Hernandez MD [facility] [address] Scheduled Procedures Name Priority Associated Diagnoses Date/Ti me EGD, UPPER GI ENDOSCOPY (WRV U 2.09) Peptic stricture of esophagus documented as of this encounter Visit Diagnoses Not on filedocumented in this encounter Care Teams Data Deliverables Manager Relationship Specialty Start Date End Date Ana Gillespie APRN [address] [place] [address] PCP - General Family Medicine 02/03/19 documented as of this encounter
--- OUTSIDE RECORDS SUMMARY | 2024-02-29 19:24 | XMS_ITS | Encounter Summary ---
Author Organization [facility] Address [facility] [place] [address] Care Team Providers Care Regional Operations Manager Name Role Phone Ana Gillespie FRAME POLISHER Primary Care Provider [phone] Encounter Details Date Type Department Care Team (Late st Contact Info) Description 05/25/2023 Telephone [place] [address] Chiquita James, RN Social History [...] PM EDT Office Visit Cardiology at [address] [address] Milagros Hernandez MD [facility] [address] Scheduled Procedures Name Priority Associated Diagnoses Date/Ti me EGD, UPPER GI ENDOSCOPY (WRV U 2.09) Peptic stricture of esophagus documented as of this encounter Visit Diagnoses Not on filedocumented in this encounter Care Teams Regional Operations Manager Relationship Specialty Start Date End Date Ana Gillespie APRN [address] [place] [address] PCP - General Family Medicine 02/03/19 documented as of this encounter
--- OUTSIDE RECORDS SUMMARY | 2024-02-29 19:24 | XMS_ITS | Encounter Summary ---
Author Organization Count Includes [facility] [address] Care Team Providers Care Human Relations Professor Name Role Phone Ana Gillespie APRN Primary Care Provider [phone] Encounter Details Date Type Department Care Team (Late st Contact Info) Description 07/06/2023 Telephone Cardiology at [address] [phone] Chiquis Jean, RN Social History Tobacco Use [...] stating Mrs Irving was admitted to [facility] over this past weekend. He states an [...] PM EDT Office Visit Cardiology at [address] [address] Milagros Hernandez MD [facility] [place] [address] Scheduled Procedures Name Priority Associated Diagnoses Date/Ti me EGD, UPPER GI ENDOSCOPY (WRV U 2.09) Peptic stricture of esophagus documented as of this encounter Visit Diagnoses Not on filedocumented in this encounter Care Teams Human Relations Professor Relationship Specialty Start Date End Date Ana Gillespie APRN [address] [place] [address] PCP - General Family Medicine 02/03/19 documented as of this encounter
--- OUTSIDE RECORDS SUMMARY | 2024-02-29 19:24 | XMS_ITS | Encounter Summary ---
Author Organization [facility] [place] [address] Care Team Providers Care Commercial Real Estate Associate Name Role Phone Ana Gillespie VAUGHN Primary Care Provider [phone] Encounter Details Date Type Department Care Team (Late st Contact Info) Description 09/08/2023 [place] [phone] Parris Maravilla Social History Tobacco Use Types [...] returned, it can be handled by: Endo Weigher Operator please park to me documented in this encounter Plan of Treatment Upcoming Encounters Date Type Department Care Team (Late st Contact Info) Description 03/10/2024 4:00 PM EDT Office Visit Cardiology at [address] [address] Milagros Hernandez MD [facility] [place] [address] Scheduled Procedures Name Priority Associated Diagnoses Date/Ti me EGD, UPPER GI ENDOSCOPY (WRV U 2.09) Peptic stricture of esophagus documented as of this encounter Visit Diagnoses Not on filedocumented in this encounter Care Teams Commercial Real Estate Associate Relationship Specialty Start Date End Date Ana Gillespie APRN [address] [place] [address] PCP - General Family Medicine 02/03/19 documented as of this encounter
--- OUTSIDE RECORDS SUMMARY | 2024-02-29 19:24 | XMS_ITS | Encounter Summary ---
Author Organization [facility] Address [facility] [place] [address] Care Team Providers Care Manager Disaster Recovery Name Role Phone Ana Gillespie APRN Primary Care Provider [phone] Reason for Visit * Reason Onset Date Comments Medication Refill 07/12/2023 Encounter Details Date Type Department Care Team (Late st Contact Info) Description 07/12/2023 Refill Cardiology at [address] [address] Milagros Hernandez MD [facility] [place] [address] Medication Refill Social History Tobacco Use Types [...] PM EDT Office Visit Cardiology at [address] [address] Milagros Hernandez MD [facility] [place] [address] Scheduled Procedures Name Priority Associated Diagnoses Date/Ti me EGD, UPPER GI ENDOSCOPY (WRV U 2.09) Peptic stricture of esophagus documented as of this encounter Visit Diagnoses Diagnosis HFrEF (heart failure with reduced ejection fraction) documented in this encounter Care Teams Manager Disaster Recovery Relationship Specialty Start Date End Date Ana Gillespie APRN [address] [place] [address] PCP - General Family Medicine 02/03/19 documented as of this encounter
--- OUTSIDE RECORDS SUMMARY | 2024-02-29 19:24 | XMS_ITS | Encounter Summary ---
[place] [address] Care Team Providers Care Banking Services Clerk Name Role Phone Ana Gillespie VAUGHN Primary Care Provider [phone] Reason for Referral * Diagnostic Test (Routine) - Closed Specialty Diagnoses / Procedures Referred By Contjovani t Referred To Contact Radiology Diagnoses Neuroleptic-induced parkinsonism Procedures IR G-Tube Check/Change DoverFannie merritt PA [facility] [place] [address] [facility] [address] Referral ID Status Reason Start Date Expiration Date V isits Requested Visits Authorized [id number] Closed Specialty Service Requested 07/06/2023 01/03/2025 1 1 Reason for Visit * Diagnostic Test (Routine) - Closed Specialty Diagnoses / Procedures Referred By Contjovani t Referred To Contact Radiology Diagnoses Neuroleptic-induced parkinsonism Procedures IR G-Tube Check/Change DoverFannie merritt PA [facility] [place] [address] [facility] [place] [address] Referral ID Status Reason Start Date Expiration Date V isits Requested Visits Authorized [id number] Closed Specialty Service Requested 07/06/2023 01/03/2025 1 1 Encounter Details Date Type Department Care Team (Latest Contact Info) Description 07/09/2023 12:21 PM EST - 07/09/2023 11:59 PM EST Hospital Encounter Radiology at [facility] [place] [address] [facility] [address] [place] [address] Neuroleptic-induced parkinsonism Discharge Disposition: Home Social History [...] or its attachments. INTERVENTIONAL RADIOLOGY PHONE NUMBERS [phone] If you have a NON Low profile feeding tube, call with any questions or concerns. During regular office hours call: [phone]. If it is after regular office hours, weekends or holidays, please call [phone] and ask to speak to the Medical Insurance Claims Processor internal medicine nurse practitioner for Interventional Radiology. If you have a low profile ???ESTRELLITA-BARLOW?? feeding tube, please call Dejah Stauffer RN for any issues: [phone]. Revised 02/23/19 documented in this encounter Medications [...] meter kit. 1 each 0 12/14/2014 Insulin [place], Disposable, (BD INSULIN PEN NEEDLE UF MINI) [...] of : 1960 AGE: 63 y.o. Address: [address] [address] (home) Mobile: Telephone Information: Referring Provider: Fannie Conde REASON FOR VISIT: Order Questions Answers Where will study be performed? [facility] Radiology [120] Is the patient on [...] PM EDT Office Visit Cardiology at [address] [address] [facility] [place] [address] Scheduled Procedures Name Priority Associated Diagnoses Date/Ti [...] procedure was performed under fluoroscopic guidance. ??A sprinkler inspector fluoroscopic image was obtained. ??Contrast was injected through the gastrostomy catheter and another fluoroscopic image was obtained. ??Through the catheter, an 0.035 Amplatz wire was advanced. ??The catheter was removed. ??Over the wire, a new 16-Fr hxe-obq-jlziisb (ESTRELLITA) gastrostomy catheter was advanced. ??The retention [...] freely than typical. Exchange for new 16-Fr xkr-cfl-yfhmtiw (ESTRELLITA) gastrostomy catheter within the stomach; retention [...] mLs documented in this encounter Care Teams Banking Services Clerk Relationship Specialty Start Date End Date Ana Gillespie APRN [address] [place], [place] [address] PCP - General Family Medicine 02/03/19 documented as of this encounter
--- OUTSIDE RECORDS SUMMARY | 2024-02-29 19:24 | XMS_ITS | Encounter Summary ---
Author Organization [facility] [place] [address] Care Team Providers Care Mixing Machine Tender Cork Rod Name Role Phone Ana Gillespie APRN Primary Care Provider [phone] Encounter Details Date Type Department Care Team (Late st Contact Info) Description 05/14/2023 Telephone [place] [address] Chiquita James, RN Social History Tobacco Use [...] PM EDT Office Visit Cardiology at [address] [address] Milagros Hernandez MD [facility] [place] [address] Scheduled Procedures Name Priority Associated Diagnoses Date/Ti me EGD, UPPER GI ENDOSCOPY (WRV U 2.09) Peptic stricture of esophagus documented as of this encounter Visit Diagnoses Not on filedocumented in this encounter Care Teams Mixing Machine Tender Cork Rod Relationship Specialty Start Date End Date Ana Gillespie APRN [address] [place] [address] PCP - General Family Medicine 02/03/19 documented as of this encounter
--- OUTSIDE RECORDS SUMMARY | 2024-02-29 19:24 | XMS_ITS | Encounter Summary ---
Author Organization [facility] [place] [address] Care Team Providers Care Office Copy Selector Name Role Phone Ana Gillespie APRN Primary Care Provider [phone] Encounter Details Date Type Department Care Team (Late st Contact Info) Description 08/02/2023 Orders [place] [phone] David Dejesus MD [facility] [place] [address] Peptic stricture of esophagus Social History Tobacco [...] PM EDT Office Visit Cardiology at [address] [phone] Milagros Hernandez MD [facility] [place] [address] Scheduled Procedures Name Priority Associated Diagnoses Date/Ti me EGD, UPPER GI ENDOSCOPY (WRV U 2.09) Peptic stricture of esophagus documented as of this encounter Visit Diagnoses Diagnosis Peptic stricture of esophagus Stricture and stenosis of esophagus documented in this encounter Care Teams Office Copy Selector Relationship Specialty Start Date End Date Ana Gillespie APRN [address] [place] [address] PCP - General Family Medicine 02/03/19 documented as of this encounter
--- OUTSIDE RECORDS SUMMARY | 2024-02-29 19:24 | XMS_ITS | Encounter Summary ---
Author Organization [facility] [place] [address] Care Team Providers Care Circle Beveler Name Role Phone Ana Gillespie APRN Primary Care Provider [phone] Encounter Details Date Type Department Care Team (Late st Contact Info) Description 06/01/2023 Orders [place] [phone] David Dejesus MD [facility] [place] [address] Peptic stricture of esophagus Social History Tobacco [...] PM EDT Office Visit Cardiology at [address] [phone] Milagros Hernandez MD [facility] [place] [address] Scheduled Procedures Name Priority Associated Diagnoses Date/Ti me EGD, UPPER GI ENDOSCOPY (WRV U 2.09) Peptic stricture of esophagus documented as of this encounter Visit Diagnoses Diagnosis Peptic stricture of esophagus Stricture and stenosis of esophagus documented in this encounter Care Teams Circle Beveler Relationship Specialty Start Date End Date Ana Gillespie APRN [address] [place] [address] PCP - General Family Medicine 02/03/19 documented as of this encounter
--- OUTSIDE RECORDS SUMMARY | 2024-02-29 19:24 | XMS_ITS | Encounter Summary ---
Author Organization [facility] [place] [address] Care Team Providers Care Solid Waste Truck Driver Name Role Phone Ana Gillespie APRN Primary Care Provider [phone] Encounter Details Date Type Department Care Team (Late st Contact Info) Description 06/18/2023 Orders [place] [phone] Noe Cuenca MD [facility] [place] [address] Hypoxemia (Primary Dx) Social History Tobacco Use [...] PM EDT Office Visit Cardiology at [address] [phone] Milagros Hernandez MD [facility] [place] [address] Scheduled Procedures Name Priority Associated Diagnoses Date/Ti [...] PFT FEV1/FVC Pre-BD Z-Score -0.14 COMPAS PFT BPP72-65 Actual Pre-BD 1.66 % COMPAS PFT TVP79-12 Predicted 1.94 % COMPAS PFT CSK15-81 Pre-BD % of Predicted 86 % COMPAS PFT MAA20-26 Pre-BD Z-Score -0.41 COMPAS PFT DLCO Hb [...] Hypoxemia documented in this encounter Care Teams Solid Waste Truck Driver Relationship Specialty Start Date End Date Ana Gillespie APRN [address] [place] [address] PCP - General Family Medicine 02/03/19 documented as of this encounter
--- OUTSIDE RECORDS SUMMARY | 2024-02-29 19:24 | XMS_ITS | Encounter Summary ---
[place] [address] Care Team Providers Care Sales Office Coordinator Name Role Phone Ana Gillespie VAUGHN Primary Care Provider [phone] Reason for Referral * Diagnostic Test (Routine) - Closed Specialty Diagnoses / Procedures Referred By Esperanza rodríguez Referred To Contact Radiology Diagnoses Problem with gastrostomy tube Procedures IR Site Check In Recovery Room Fannie Conde PA [facility] [place] [address] [facility] [place] [address] Referral ID Status Reason Start Date Expiration Date V isits Requested Visits Authorized [id number] Closed Specialty Service Requested 09/17/2023 03/19/2025 1 1 Reason for Visit * Diagnostic Test (Routine) - Closed Specialty Diagnoses / Procedures Referred By Esperanza rodríguez Referred To Contact Radiology Diagnoses Problem with gastrostomy tube Procedures IR Site Check In Recovery Room Fannie Conde PA [facility] [place] [address] [facility] [place] [address] Referral ID Status Reason Start Date Expiration Date V isits Requested Visits Authorized [id number] Closed Specialty Service Requested 09/17/2023 03/19/2025 1 1 Encounter Details Date Type Department Care Team (Latest Contact Info) Description 09/17/2023 11:00 AM EDT - 09/17/2023 11:54 AM EDT Hospital [place] [phone] Geronimo Chambers, [facility] [place] [address] Problem with gastrostomy tube Discharge Disposition: Home [...] 180 tablet 3 10/20/2021 Blood Sugar Diagnostic (Biocroí ULTRA TEST) StripIndications:Type 2 diabetes mellitus, uncontrolled [...] meter kit. 1 each 0 12/14/2014 Insulin [place], Disposable, (BD INSULIN PEN NEEDLE UF MINI) 31 x 3/16 NeedleIndications:Josefina betes mellitus type 2, uncontrolled 1 Device by [facility].(Non-Drug; Combo Route) route 3 times daily as needed. 100 each 11 12/13/2014 documented as of this encounter Plan of Treatment Upcoming Encounters Date Type Department Care Team (Late st Contact Info) Description 03/10/2024 4:00 PM EDT Office Visit Cardiology at [address] [address] Milagros Hernandez MD [facility] [place] [address] Scheduled Procedures Name Priority Associated Diagnoses Date/Ti [...] Recovery Room (09/17/2023 1:00 PM EDT) Narrative [facility] - 09/17/2023 1:00 PM EDT This exam is auto-finalizing. No interpretation was done. Geronimo [place] IR ORDERABLES [place], [place] * IR G-Tube Check/Change (09/17/2023 12:51 [...] external disk positioned at 4 cm marker. table lever operator: Hang Cooper PA-C Attending of record: Geronimo Chambers DO. I was not present. ?? 09/17/2023 Geronimo Chambers DO IMG IR ORDERABLES documented in this encounter Visit Diagnoses Diagnosis Problem with gastrostomy tube documented in this encounter Care Teams Sales Office Coordinator Relationship Specialty Start Date End Date Ana Gillespie APRN [address] [place] [address] PCP - General Family Medicine 02/03/19 documented as of this encounter
--- OUTSIDE RECORDS SUMMARY | 2024-02-29 19:24 | XMS_ITS | Encounter Summary ---
Author Organization [facility] [place] [address] Care Team Providers Care Cleaning Machine Operator Name Role Phone Ana Gillespie VAUGHN Primary Care Provider [phone] Reason for Referral * Diagnostic Test (Routine) - Closed Specialty Diagnoses / Procedures Referred By Esperanza rodríguez Referred To Contact Radiology Diagnoses Neuroleptic-induced parkinsonism Procedures IR G-Tube Check/Change Fannie Conde PA [facility] INTERVENTION[place] [address] [place] [address] Referral ID Status Reason Start Date Expiration Date V isits Requested Visits Authorized [id number] Closed Specialty Service Requested 07/06/2023 01/03/2025 1 1 Encounter Details Date Type Department Care Team (Late st Contact Info) Description 07/06/2023 [place] [address] Fannie Conde PA [facility] INTERVENTIONAL [place] [address] Social History Tobacco Use Types Packs/Day Years [...] with tube feeds, [facility]exchange [facility]-tube. Patient's reports that she was evaluated at [facility] for possible PNA, and the G-tube became [...] glucose meter kit. 1 each 0 Insulin [place], Disposable, (BD INSULIN PEN NEEDLE UF MINI) 31 x 3/16 Needle 1 Device by [facility] [...] G-Tube Check/Change 11/27/[address] [facility] INTERVENTIONL RAD IR G-TUBE CHECK/CHANGE 03/10/2023 IR G-Tube Check/Change 03/10/[address] [facility] INTERVENTIONL RAD IR G-TUBE CHECK/CHANGE 04/06/2023 IR G-Tube Check/Change 04/06/[address] [facility] INTERVENTIONL RAD IR G-TUBE CHECK/CHANGE 05/09/2023 IR G-Tube Check/Change [facility] INTERVENTIONL RAD IR G-TUBE PLACEMENT 09/11/2022 IR G-Tube Placement 09/11/[address] [facility] INTERVENTIONL RAD IR SUTURE RELEASE 09/25/2022 IR Suture Release 09/25/[address] [facility] INTERVENTIONL RAD PERCUTANEOUS GASTROSTOMY N/A 09/11/2022 PERCUTANEOUS GASTROSTOMY performed by Aiden Flores MD at [facility] CATY PRO COLONOSCOPY, BIOPSY N/A 03/20/2016 COLONOSCOPY FLEXIBLE, WITH BX performed by David Dejesus MD at [facility] ENDOSCOPY PRO COLONOSCOPY, DIAGNOSTIC N/A 03/01/2020 COLONOSCOPY, DIAGNOSTIC performed by David Dejesus MD at [facility] ENDOSCOPY PRO ENDOSCOPIC US EXAM, ESOPH N/A 03/31/2022 UPPER EUS- ENDOSCOPIC ULTRASOUND performed by David Dejesus MD at [facility] ENDOSCOPY PRO UP GI ENDOSCOPY, BALL DIL, 30MM N/A 12/24/2022 EGD,WITH DILATION ESOPHAGUS WITH BALLOON,< 30 MM (WRVU 2.67) performed by David Dejesus MDat [facility] ENDOSCOPY PRO UP GI ENDOSCOPY, BALL DIL, 30MM N/A 01/12/2023 EGD,WITH DILATION ESOPHAGUS WITH BALLOON,< 30 MM (WRVU 2.67) performed by David Dejesus [facility] ENDOSCOPY PRO UP GI ENDOSCOPY, BALL DIL, 30MM N/A 02/26/2023 EGD,WITH DILATION ESOPHAGUS WITH BALLOON,< 30 MM (WRVU 2.67) performed by David Dejesus [facility] ENDOSCOPY PRO UP GI ENDOSCOPY, BALL DIL, 30MM N/A 03/16/2023 EGD,WITH DILATION ESOPHAGUS WITH BALLOON,< 30 MM (WRVU 2.67) performed by David Dejesus [facility] ENDOSCOPY PRO UP GI ENDOSCOPY, BALL DIL, 30MM N/A 03/30/2023 EGD,WITH DILATION ESOPHAGUS WITH BALLOON,< 30 MM (WRVU 2.67) performed by David Dejesus [facility] ENDOSCOPY PRO UP GI ENDOSCOPY, BALL DIL, 30MM N/A 04/30/2023 EGD,WITH DILATION ESOPHAGUS WITH BALLOON,< 30 MM (WRVU 2.67) performed by David Dejesus [facility] ENDOSCOPY PRO UP GI ENDOSCOPY, BALL DIL, 30MM N/A 06/01/2023 EGD,WITH DILATION ESOPHAGUS WITH BALLOON,< 30 MM (WRVU 2.67) performed by David Dejesus [facility] ENDOSCOPY PRO UPPER GI ENDOSCOPY, BIOPSY N/A 04/03/2014 UPPER GASTROINTESTINAL ENDOSCOPY,WITH BIOPSY SINGLE OR MULTIPLE performed by David Dejesus [facility] ENDOSCOPY PRO UPPER GI ENDOSCOPY, BIOPSY N/A 03/20/2016 EGD WITH BIOPSY performed by David Dejesus MD at [facility] ENDOSCOPY PRO UPPER GI ENDOSCOPY, BIOPSY N/A 11/22/2018 EGD WITH BIOPSY (WRVU 2.49) performed by David Dejesus MD at [facility] ENDOSCOPY PRO UPPER GI ENDOSCOPY, BIOPSY N/A 03/01/2020 UPPER GASTROINTESTINAL ENDOSCOPY,WITH BIOPSY SINGLE OR MULTIPLE (WRVU 2.49) performed by David Dejesus MD at [facility] ENDOSCOPY PRO UPPER GI ENDOSCOPY, BIOPSY N/A 09/23/2021 EGD WITH BIOPSY (WRVU 2.49) performed by David Dejesus MD at [facility] ENDOSCOPY PRO UPPER GI ENDOSCOPY, BIOPSY N/A 03/31/2022 EGD WITH BIOPSY (WRVU 2.49) performed by David Dejesus MD at [facility] ENDOSCOPY PRO UPPER GI ENDOSCOPY, BIOPSY N/A 07/03/2022 EGD WITH BIOPSY (WRVU 2.49) performed by David Dejesus MD at [facility] ENDOSCOPY PRO UPPER GI ENDOSCOPY, DIAGNOSTIC N/A 04/03/2014 EGD, UPPER GI ENDOSCOPY performed by David Dejesus MD at [facility] ENDOSCOPY PRO UPPER GI ENDOSCOPY, DIAGNOSTIC N/A 03/01/2020 EGD, UPPER GI ENDOSCOPY performed by David Dejesus MD at [facility] ENDOSCOPY PRO UPPER GI ENDOSCOPY, DIAGNOSTIC N/A 09/09/2022 EGD, UPPER GI ENDOSCOPY (WRVU 2.09) performed by Aoy Russ MD at [facility] MAIN OR Social History and [...] PM EDT Office Visit Cardiology at [address] [address] Milagros Hernandez MD [facility] [place] [address] Scheduled Procedures Name Priority Associated Diagnoses Date/Ti ma EGD, UPPER GI ENDOSCOPY (WRV U 2.09) [...] procedure was performed under fluoroscopic guidance. ??A storm door maker fluoroscopic image was obtained. ??Contrast was injected through the gastrostomy catheter and another fluoroscopic image was obtained. ??Through the catheter, an 0.035 Amplatz wire was advanced. ??The catheter was removed. ??Over the wire, a new 16-Fr ljo-giw-siewdmn (ESTRELLITA) gastrostomy catheter was advanced. ??The retention [...] freely than typical. Exchange for new 16-Fr yoo-nfw-nnkvzas (ESTRELLITA) gastrostomy catheter within the stomach; retention [...] Parkinsonism documented in this encounter Care Teams Cleaning Machine Operator Relationship Specialty Start Date End Date Ana Gillespie APRN [address] [place] [address] PCP - General Family Medicine 02/03/19 documented as of this encounter
--- OUTSIDE RECORDS SUMMARY | 2024-02-29 19:24 | XMS_ITS | Encounter Summary ---
Author Organization [facility] Address [facility] [place] [address] Care Team Providers Care Production Hardener Name Role Phone Ana Gillespie APRN Primary Care Provider [phone] Encounter Details Date Type Department Care Team (Late st Contact Info) Description 07/02/2023 [place] [phone] Zhang Pope MD [facility] [place] [address] Social History Tobacco Use Types Packs/Day Years [...] Referring Provider: Dr. Tae Abrams Patient Location: [facility] Presenting Symptoms per OSH: Jennifer Irving is [...] Jan 2023. The patient presented today to [facility] with cough and shortness of breath. The working diagnosis at [facility] is a COPD exacerbation. Cardiology was contacted as the patient's troponin had increased over three hours from 203 to 434. The patient has sharp generalized chest pain that occurs when she coughs but does not have chest pressure. ECG is similar to previous. The patient is on BiPAP and the provider at [facility] plans to admit her locally with BiPAP. [...] had a TTE performed November 2022 at [facility] with LVEF that nearly completely recovered. OSH [...] in the patient condition. Zhang Pope MD Grain Roaster documented in this encounter Plan of Treatment Upcoming Encounters Date Type Department Care Team (Late st Contact Info) Description 03/10/2024 4:00 PM EDT Office Visit Cardiology at [address] [address] Milagros Hernandez MD [facility] [place] [address] Scheduled Procedures Name Priority Associated Diagnoses Date/Ti me EGD, UPPER GI ENDOSCOPY (WRV U 2.09) Peptic stricture of esophagus documented as of this encounter Visit Diagnoses Not on filedocumented in this encounter Care Teams Production Hardener Relationship Specialty Start Date End Date Ana Gillespie APRN [address] [place] [address] PCP - General Family Medicine 02/03/19 documented as of this encounter
--- OUTSIDE RECORDS SUMMARY | 2024-02-29 19:24 | XMS_ITS | Encounter Summary ---
Author Organization [facility] Address [facility] [place] [address] Care Team Providers Care Tram Inspector Name Role Phone Ana Gillespie VAUGHN Primary Care Provider [phone] Encounter Details Date Type Department Care Team (Latest Contact Info) Description 08/02/2023 8:59 AM EDT - 08/02/2023 12:45 PM EDT Hospital Encounter [place] [phone] David Dejesus MD [facility] [place] [address] Discharge Disposition: Home Social History Tobacco Use [...] the day after the procedure, use an ygom-zyr-emphtbl spray to numb your throat. Sucking on [...] occurs, please contact your Doctor. Please call [phone] before 8pm Mon-Fri with problems, questions or concerns. If you call after 8pm or on weekends, call the Hospital at [phone] and ask to speak to the Car Body Inspector coldfusion and the hoist operator will contact that person for you. [...] can you learn more? [facility] View your After Visit Summary and more online at [email or web address] If you would like to provide feedback about your hospital experience, please call the Office of Patient and Family Relations at . If you have received this After Visit Summary in error, please immediately return it in person to the department, or notify the [facility] Privacy Office by calling toll free at between the hours of 8AM and 5PM to arrange for our retrieval of the documents at no cost to you. Content Version: 12.2 ?? 5069-5567 SayNow. Care instructions adapted under license by [employer]. If you have questions about a medical condition or this instruction, always ask your healthcare professional. SayNow disclaims any warranty or liability for your [...] the day after the procedure, use an kidn-ihz-yailxeb spray to numb your throat. Sucking on [...] occurs, please contact your Doctor. Please call [phone] before 8pm Mon-Fri with problems, questions or concerns. If you call after 8pm or on weekends, call the Hospital at [phone] and ask to speak to the Car Body Inspector coldfusion and the hoist operator will contact that person for you. When should you call for help? Call [phone] anytime you think you may need emergency [...] can you learn more? [facility] View your After Visit Summary and more online at [email or web address] If you would like to provide feedback about your hospital experience, please call the Office of Patient and Family Relations at . If you have received this After Visit Summary in error, please immediately return it in person to the department, or notify the [facility] Privacy Office by calling toll free at between the hours of 8AM and 5PM to arrange for our retrieval of the documents at no cost to you. Content Version: 12.2 ?? 7276-1429 SayNow. Care instructions adapted under license by [facility]. If you have questions about a medical condition or this instruction, always ask your healthcare professional. SayNow disclaims any warranty or liability for your [...] meter kit. 1 each 0 12/14/2014 Insulin [place], Disposable, (BD INSULIN PEN NEEDLE UF MINI) [...] PM EDT Office Visit Cardiology at [address] [address] Milagros Hernandez MD [facility] [place] [address] Scheduled Procedures Name Priority Associated Diagnoses Date/Ti me EGD, UPPER GI ENDOSCOPY (WRV U 2.09) Peptic stricture of esophagus documented as of this encounter Procedures Procedure Name Priority Date/Time Associated Diagnosis Comments Up Gi Endoscopy, Ball Dil, 30Mm (85313) 08/02/2023 11:01 AM EDT Peptic stricture of esophagus UPPER GI ENDOSCOPY Routine 08/02/2023 10 :49 AM EDT POCT GLUCOSE Routine 08/02/2023 9:54 AM EDT documented in this encounter Results * UPPER GI ENDOSCOPY (08/02/2023 10:49 AM EDT) UPPER GI ENDOSCOPY [facility] Procedure Date: 08/02/2023 10:49 AM ? Patient Name: Jennifer Irving ? Date of : 1960 ? Age: 63 ? Order #: [id number] ? Instrument Name: [id number] ? Procedure: ? Upper GI endoscopy Indications: [...] SURGICAL ORD ERABLES Performing Organization Address [facility] de Phone Number PROVATION * POCT Glucose (08/02/2023 9:54 AM EDT) Glucose, POC 81 65 - 199 mg/dL [facility] Comment: Supplemental ranges: <140 mg/dL before meals <180 mg/dL all other times of the day Blood 08/02/2023 9:54 AM EDT 08/02/2023 9:54 AM EDT David Dejesus MD POINT OF CARE TEST ORDERABLES Performing Organization Address [facility] de Phone Number [facility] [place] [address] documented in this encounter Visit Diagnoses Not [...] CRNA) documented in this encounter Care Teams Tram Inspector Relationship Specialty Start Date End Date Ana Gillespie APRN [address] [place] [address] PCP - General Family Medicine 02/03/19 documented as of this encounter
--- OUTSIDE RECORDS SUMMARY | 2024-02-29 19:24 | XMS_ITS | Encounter Summary ---
Author Organization [facility] Address [facility] [place] [address] Care Team Providers Care Mergers And Acquisitions Attorney Name Role Phone Ana Gillespie VAUGHN Primary Care Provider [phone] Encounter Details Date Type Department Care Team (Late st Contact Info) Description 06/01/2023 9:00 AM EST - 06/01/2023 9:45 AM EST Surgery Gastroenterology at [facility] [place] [address] David Dejesus MD [facility] [place] [address] EGD,WITH DILATION ESOPHAGUS WITH BALLOON,< 30 MM [...] the day after the procedure, use an yzua-wlw-ffoikti spray to numb your throat. Sucking on [...] occurs, please contact your Doctor. Please call [phone] before 8pm Mon-Fri with problems, questions or concerns. If you call after 8pm or on weekends, call the Hospital at [phone] and ask to speak to the Learning Support Specialist satellite communications engineer and the centralized traffic control operator will contact that person for you. When should you call for help? Call 310 anytime you think you may need emergency [...] Where can you learn more? [facility] View your After Visit Summary and more online at [email or web address] If you would like to provide feedback about your hospital experience, please call the Office of Patient and Family Relations at . If you have received this After Visit Summary in error, please immediately return it in person to the department, or notify the [facility] Privacy Office by calling toll free at between the hours of 8AM and 5PM to arrange for our retrieval of the documents at no cost to you. Content Version: 12.2 ?? 2942-9706 Desktop Genetics. Care instructions adapted under license by [facility]. If you have questions about a medical condition or this instruction, always ask your healthcare professional. [employer] disclaims any warranty or liability for your [...] meter kit. 1 each 0 12/14/2014 Insulin [place], Disposable, (BD INSULIN PEN NEEDLE UF MINI) 31 x 07/23 NeedleIndications:Di abetes mellitus type 2, uncontrolled 1 Device by [facility]Non-Drug; Combo Route) route 3 [...] glucose meter kit. 1 each 0 Insulin [place], Disposable, (BD INSULIN PEN NEEDLE UF MINI) 31 x 3/16 Needle 1 Device by [facility]Non-Drug; Combo Route) route 3 [...] Dejesus MD - 06/01/2023 9:15 AM EST [facility] Operative Note Patient Name: Jennifer Irving : [id number] MR#: [id number] Case Date: 06/01/2023 This note was entered in error documented in this encounter Plan of Treatment Upcoming Encounters Date Type Department Care Team (Late st Contact Info) Description 03/10/2024 4:00 PM EDT Office Visit Cardiology at [address] [address] Milagros Hernandez MD [facility] [place] [address] Scheduled Procedures Name Priority Associated Diagnoses Date/Ti me EGD, UPPER GI ENDOSCOPY (WRV U 2.09) Peptic stricture of esophagus documented as of this encounter Procedures Procedure Name Priority Date/Time Associated Diagnosis Comments Up Gi Endoscopy, Ball Dil, 30Mm (27290) 06/01/2023 9:06 AM EST Peptic stricture of esophagus UPPER GI ENDOSCOPY Routine 06/01/2023 8: 54 AM EST POCT GLUCOSE Routine 06/01/2023 8:32 AM EST documented in this encounter Results * UPPER GI ENDOSCOPY (06/01/2023 8:54 AM EST) Pathologist [facility] UPPER GI ENDOSCOPY [facility] Endoscopy Procedure Date: 06/01/2023 8:54 AM ? Patient Name: Jennifer Irving ? Date of : 1960 ? Age: 62 ? Order #: [id number] ? Instrument Name: [id number] ? Procedure: ? Upper GI endoscopy Indications: [...] Procedure Code(s): ? --- Professional --- ? 47988, Esophagogastroduod enoscopy, ? flexible, transoral; diagnostic, ? including collection of specimen(s) ? by brushing or washing, when ? performed (separate procedure) CPT copyright 2022 [employer]. All rights reserved. The codes documented in this report are preliminary and upon medical billing coder review may be revised to meet current compliance requirements. Attending Participation: ? I personally performed the entire procedure. ? ___ David Dejesus MD 06/01/2023 9:37:18 AM This report has been signed electronically. Number of Addenda: 0 Note Initiated On: 06/01/2023 8:54 AM PROVATION 06/01/2023 8:54 AM EST Ana Gillespie RUG RECEIVING CLERK GENERAL SURGICAL ORD ERABLES Performing Organization Address [facility] Co de Phone Number PROVATION * POCT Glucose (06/01/2023 8:32 AM EST) Glucose, POC 102 65 - 199 mg/dL [facility] Comment: Supplemental ranges: <140 mg/dL before meals <180 mg/dL all other times of the day Blood 06/01/2023 8:32 AM EST 06/01/2023 8:32 AM EST David Dejesus MD POINT OF CARE TEST ORDERABLES Performing Organization Address [facility] Co de Phone Number [facility] [place] [address] documented in this encounter Visit Diagnoses Diagnosis [...] 1025, Endoscopy (Day of Procedure) 0837 ([facility] ider: Mary Peace RN) documented in this encounter Care Teams Mergers And Acquisitions Attorney Relationship Specialty Start Date End Date Ana Gillespie APRN [address] [place] [address] PCP - General Family Medicine 02/03/19 documented as of this encounter
--- OUTSIDE RECORDS SUMMARY | 2024-02-29 19:24 | XMS_ITS | Encounter Summary ---
Author Organization [place] [address] Care Team Providers Care Band Cutting Machine Operator Name Role Phone Ana Gillespie APRN Primary Care Provider [phone] Encounter Details Date Type Department Care Team (Late st Contact Info) Description 07/04/2023 External [place] [phone] Social History Tobacco Use Types Packs/Day Years [...] 4:00 PM EDT Office Visit Cardiology at [address] [phone] Milagros Hernandez MD [facility] [place] [address] Scheduled Procedures Name Priority Associated Diagnoses Date/Ti [...] on filedocumented in this encounter Care Teams Band Cutting Machine Operator Relationship Specialty Start Date End Date Ana Gillespie APRN [address] [place] [address] PCP - General Family Medicine 02/03/19 documented as of this encounter
--- OUTSIDE RECORDS SUMMARY | 2024-02-29 19:24 | XMS_ITS | Encounter Summary ---
Author Organization [facility] [place] [address] Care Team Providers Care Public Health Specialist Name Role Phone Jose Miguel Ana MENDES Primary Care Provider [phone] Encounter Details Date Type Department Care Team (Late st Contact Info) Description 07/12/2023 Telephone Cardiology at [address] [phone] Chiquis Jean, RN Social History Tobacco Use [...] 07/12/2023 10:29 AM EST TC to [facility] in [facility], and spoke with Pharmacist to [...] that the Entresto has been called to [employer] in [facility]. Reviewing his chart the last DH prescription refill from [facility] Cardiology was 09/24/2022, [...] PM EDT Office Visit Cardiology at [address] [address] Milagros Hernandez MD [facility] [place] [address] Scheduled Procedures Name Priority Associated Diagnoses Date/Ti me EGD, UPPER GI ENDOSCOPY (WRV U 2.09) Peptic stricture of esophagus documented as of this encounter Visit Diagnoses Not on filedocumented in this encounter Care Teams Public Health Specialist Relationship Specialty Start Date End Date Ana Gillespie APRN [address] [place] [address] PCP - General Family Medicine 02/03/19 documented as of this encounter
--- OUTSIDE RECORDS SUMMARY | 2024-02-29 19:24 | XMS_ITS | Encounter Summary ---
Author Organization [facility] Address [facility] [place] [address] Care Team Providers Care Explosive Technician Name Role Phone Ana Gillespie APRN Primary Care Provider [phone] Encounter Details Date Type Department Care Team (Late st Contact Info) Description 08/11/2023 Telephone [place] [address] Parris Maravilla Social History Tobacco [...] it can be handled by: Any Endoscopy Baggage Checker documented in this encounter Plan of Treatment Upcoming Encounters Date Type Department Care Team (Late st Contact Info) Description 03/10/2024 4:00 PM EDT Office Visit Cardiology at [address] [address] Milagros Hernandez MD [facility] [place] [address] Scheduled Procedures Name Priority Associated Diagnoses Date/Ti me EGD, UPPER GI ENDOSCOPY (WRV U 2.09) Peptic stricture of esophagus documented as of this encounter Visit Diagnoses Not on filedocumented in this encounter Care Teams Explosive Technician Relationship Specialty Start Date End Date Ana Gillespie APRN [address] [place] [address] PCP - General Family Medicine 02/03/19 documented as of this encounter
--- OUTSIDE RECORDS SUMMARY | 2024-02-29 19:24 | XMS_ITS | Encounter Summary ---
Author Organization [facility] [place] [address] Care Team Providers Care Health Safety Coordinator Name Role Phone Ana Gillespie VAUGHN Primary Care Provider [phone] Encounter Details Date Type Department Care Team (Late st Contact Info) Description 09/02/2023 Telephone [place] [phone] Chiquita James, RN Social History Tobacco Use [...] PM EDT Office Visit Cardiology at [address] [phone] Milagros Hernandez MD [facility] [place] [address] Scheduled Procedures Name Priority Associated Diagnoses Date/Ti me EGD, UPPER GI ENDOSCOPY (WRV U 2.09) Peptic stricture of esophagus documented as of this encounter Visit Diagnoses Not on filedocumented in this encounter Care Teams Health Safety Coordinator Relationship Specialty Start Date End Date Ana Gillespie APRN [address] [place] [address] PCP - General Family Medicine 02/03/19 documented as of this encounter
--- OUTSIDE RECORDS SUMMARY | 2024-02-29 19:24 | XMS_ITS | Encounter Summary ---
Author Organization [facility] Address [facility] [place] [address] Care Team Providers Care Colorman Name Role Phone Ana Gillespie VAUGHN Primary Care Provider [phone] Encounter Details Date Type Department Care Team (Late st Contact Info) Description 07/04/2023 Telephone Cardiology at [address] [place] [phone] Gaby Lockett APRN [facility] [place] [address] Social History Tobacco Use Types Packs/Day Years [...] received a call from Dr. Trimble from [facility] through the . Per Dr. Trimble: [...] PM EDT Office Visit Cardiology at [address] [address] Milagros Hernandez MD [facility] [place] [address] Scheduled Procedures Name Priority Associated Diagnoses Date/Ti me EGD, UPPER GI ENDOSCOPY (WRV U 2.09) Peptic stricture of esophagus documented as of this encounter Visit Diagnoses Not on filedocumented in this encounter Care Teams Colorman Relationship Specialty Start Date End Date Ana Gillespie APRN [address] [place] [address] PCP - General Family Medicine 02/03/19 documented as of this encounter
--- OUTSIDE RECORDS SUMMARY | 2024-02-29 19:24 | XMS_ITS | Encounter Summary ---
Author Organization [facility] Address [facility] [place] [address] Care Team Providers Care Cloth Trimmer Hand Name Role Phone Ana Gillespie APRN Primary Care Provider [phone] Encounter Details Date Type Department Care Team (Late st Contact Info) Description 08/25/2023 [place] [phone] Niru Mary Social History Tobacco Use Types [...] PM EDT Office Visit Cardiology at [address] [phone] Milagros Hernandez MD [facility] [place] [address] Scheduled Procedures Name Priority Associated Diagnoses Date/Ti me EGD, UPPER GI ENDOSCOPY (WRV U 2.09) Peptic stricture of esophagus documented as of this encounter Visit Diagnoses Not on filedocumented in this encounter Care Teams Cloth Trimmer Hand Relationship Specialty Start Date End Date Ana Gillespie APRN [address] [place] [address] PCP - General Family Medicine 02/03/19 documented as of this encounter
--- OUTSIDE RECORDS SUMMARY | 2024-02-29 19:24 | XMS_ITS | Encounter Summary ---
Author Organization [facility] Address [facility] [place] [address] Care Team Providers Care Treatment Specialist Name Role Phone Ana Gillespie VAUGHN Primary Care Provider [phone] Encounter Details Date Type Department Care Team (Latest Contact Info) Description 06/01/2023 7:00 AM EST - 06/01/2023 10:36 AM EST Hospital Encounter Gastroenterology at [facility] [place] [address] David Dejesus MD [facility] [place] [address] Discharge Disposition: Home Social History Tobacco Use [...] the day after the procedure, use an yekn-cvv-gwwyuem spray to numb your throat. Sucking on [...] occurs, please contact your Doctor. Please call [phone] before 8pm Mon-Fri with problems, questions or concerns. If you call after 8pm or on weekends, call the Hospital at [phone] and ask to speak to the Feed Mill Operator bi solutions architect and the aviation electronic warfare operator will contact that person for you. When should you call for help? Call [phone] anytime you think you may need emergency [...] any problems. Where can you learn more? [facility] View your After Visit Summary and more online at [email or web address] If you would like to provide feedback about your hospital experience, please call the Office of Patient and Family Relations at . If you have received this After Visit Summary in error, please immediately return it in person to the department, or notify the [facility] Privacy Office by calling toll free at between the hours of 8AM and 5PM to arrange for our retrieval of the documents at no cost to you. Content Version: 12.2 ?? 3785-8512 [employer]. Care instructions adapted under license by [facility]. If you have questions about a medical condition or this instruction, always ask your healthcare professional. [employer] disclaims any warranty or liability for your [...] meter kit. 1 each 0 12/14/2014 Insulin [place], Disposable, (BD INSULIN PEN NEEDLE UF MINI) [...] glucose meter kit. 1 each 0 Insulin [place], Disposable, (BD INSULIN PEN NEEDLE UF MINI) 31 x 3/16 Need[address] [facility].(Non-Drug; Combo Route) route 3 [...] Dejesus MD - 06/01/2023 9:[address] [facility] Operative Note Patient Name: Jennifer Irving : [id number] MR#: [id number] Case Date: 06/01/2023 This note was entered in error documented in this encounter Plan of Treatment Upcoming Encounters Date Type Department Care Team (Late st Contact Info) Description 03/10/2024 4:00 PM EDT Office Visit Cardiology at [address] [address] Milagros Hernandez MD [facility] [place] [address] Scheduled Procedures Name Priority Associated Diagnoses Date/Ti fl EGD, UPPER GI ENDOSCOPY (WRV U 2.09) Peptic stricture of esophagus documented as of this encounter Procedures Procedure Name Priority Date/Time Associated Diagnosis Comments Up Gi Endoscopy, Ball Dil, 30Mm (15745) 06/01/2023 9:06 AM EST Peptic stricture of esophagus UPPER GI ENDOSCOPY Routine 06/01/2023 8: 54 AM EST POCT GLUCOSE Routine 06/01/2023 8:32 AM EST documented in this encounter Results * UPPER GI ENDOSCOPY (06/01/2023 8:54 AM EST) Pathologist [facility] UPPER GI ENDOSCOPY [facility] Endoscopy Procedure Date: 06/01/2023 8:54 AM ? Patient Name: Jennifer Irving ? Date of : 1960 ? Age: 62 ? Order #: [id number] ? Instrument Name: [id number] ? Procedure: ? Upper GI endoscopy Indications: [...] Procedure Code(s): ? --- Professional --- ? 63927, Esophagogastroduod enoscopy, ? flexible, transoral; diagnostic, ? including collection of specimen(s) ? by brushing or washing, when ? performed (separate procedure) CPT copyright 2022 [employer]. All rights reserved. The codes documented in this report are preliminary and upon dumper operator review may be revised to meet current [...] Glucose, POC 102 65 - 199 mg/dL [facility] Comment: Supplemental ranges: <140 mg/dL before meals <180 mg/dL all other times of the day Blood 06/01/2023 8:32 AM EST 06/01/2023 8:32 AM EST David Dejesus MD POINT OF CARE TEST ORDERABLES Performing Organization Address City/[facility] Co de Phone Number [facility] [place] [address] documented in this encounter Visit Diagnoses Not [...] RN) documented in this encounter Care Teams Treatment Specialist Relationship Specialty Start Date End Date Ana Gillespie APRN [address] [place] [address] PCP - General Family Medicine 02/03/19 documented as of this encounter
--- OUTSIDE RECORDS SUMMARY | 2024-02-29 19:24 | XMS_ITS | Encounter Summary ---
[place] [address] Care Team Providers Care Auctioneer Automobile Name Role Phone Ana Gillespie APRN Primary Care Provider [phone] Reason for Visit * Reason Onset Date Comments Prior Authorization 07/21/2023 Encounter Details Date Type Department Care Team (Late st Contact Info) Description 07/21/2023 Telephone [place] [address] Radha Urena Prior Authorization Social History Tobacco [...] PM EDT Office Visit Cardiology at [address] [phone] Milagros Hernandez MD [facility] [place] [address] Scheduled Procedures Name Priority Associated Diagnoses Date/Ti me EGD, UPPER GI ENDOSCOPY (WRV U 2.09) Peptic stricture of esophagus documented as of this encounter Visit Diagnoses Not on filedocumented in this encounter Care Teams Auctioneer Automobile Relationship Specialty Start Date End Date Ana Gillespie APRN [address] [place] [address] PCP - General Family Medicine 02/03/19 documented as of this encounter
--- OUTSIDE RECORDS SUMMARY | 2024-02-29 19:24 | XMS_ITS | Encounter Summary ---
Author Organization [facility] [place] [address] Care Team Providers Care Editorial Cartoonist Name Role Phone Ana Gillespie APRN Primary Care Provider [phone] Encounter Details Date Type Department Care Team [...] PM EDT Office Visit Cardiology at [address] [phone] Milagros Hernandez MD [facility] [place] [address] Scheduled Procedures Name Priority Associated Diagnoses Date/Ti me EGD, UPPER GI ENDOSCOPY (WRV U 2.09) Peptic stricture of esophagus documented as of this encounter Visit Diagnoses Not on filedocumented in this encounter Care Teams Editorial Cartoonist Relationship Specialty Start Date End Date Ana Gillespie APRN [address] [place] [address] PCP - General Family Medicine 02/03/19 documented as of this encounter
--- OUTSIDE RECORDS SUMMARY | 2024-02-29 19:24 | XMS_ITS | Encounter Summary ---
Author Organization [facility] [place] [address] Care Team Providers Care Principal Biostatistician Name Role Phone Ana Gillespie VAUGHN Primary Care Provider [phone] Encounter Details Date Type Department Care Team (Late st Contact Info) Description 05/27/2023 Telephone [place] [phone] Chiquita James, RN Social History Tobacco Use [...] PM EDT Office Visit Cardiology at [address] [phone] Milagros Hernandez MD [facility] [place] [address] Scheduled Procedures Name Priority Associated Diagnoses Date/Ti me EGD, UPPER GI ENDOSCOPY (WRV U 2.09) Peptic stricture of esophagus documented as of this encounter Visit Diagnoses Not on filedocumented in this encounter Care Teams Principal Biostatistician Relationship Specialty Start Date End Date Ana Gillespie APRN [address] [place] [address] PCP - General Family Medicine 02/03/19 documented as of this encounter
--- OUTSIDE RECORDS SUMMARY | 2024-02-29 19:24 | XMS_ITS | Encounter Summary ---
[place] [address] Care Team Providers Care Division Plant Engineer Name Role Phone Ana Gillespie VAUGHN Primary Care Provider [phone] Encounter Details Date Type Department Care Team (Late st Contact Info) Description 05/18/2023 Telephone [place] [phone] Chiquita James, RN Social History Tobacco Use [...] PM EDT Office Visit Cardiology at [address] [phone] Milagros Hernandez MD [facility] [address] Scheduled Procedures Name Priority Associated Diagnoses Date/Ti me EGD, UPPER GI ENDOSCOPY (WRV U 2.09) Peptic stricture of esophagus documented as of this encounter Visit Diagnoses Not on filedocumented in this encounter Care Teams Division Plant Engineer Relationship Specialty Start Date End Date Ana Gillespie APRN [address] [place] [address] PCP - General Family Medicine 02/03/19 documented as of this encounter
--- OUTSIDE RECORDS SUMMARY | 2024-02-29 19:24 | XMS_ITS | Encounter Summary ---
Author Organization [facility] [place] [address] Care Team Providers Care Drill Rig Operator Name Role Phone Ana Gillespie VAUGHN Primary Care Provider [phone] Encounter Details Date Type Department Care Team (Late st Contact Info) Description 07/28/2023 Telephone [place] [phone] Niru Mary Social History Tobacco Use Types [...] - 07/28/2023 5:13 PM EDT Copied from [facility] #[id number]. Topic: Specialty Dept CRMs - Generic Call [...] PM EDT Office Visit Cardiology at [address] [phone] Milagros Hernandez MD [facility] [place] [address] Scheduled Procedures Name Priority Associated Diagnoses Date/Ti me EGD, UPPER GI ENDOSCOPY (WRV U 2.09) Peptic stricture of esophagus documented as of this encounter Visit Diagnoses Not on filedocumented in this encounter Care Teams Drill Rig Operator Relationship Specialty Start Date End Date Ana Gillespie APRN [address] [place] [address] PCP - General Family Medicine 02/03/19 documented as of this encounter
--- OUTSIDE RECORDS SUMMARY | 2024-02-29 19:24 | XMS_ITS | Encounter Summary ---
Author Organization [facility] Address [facility] [place] [address] Care Team Providers Care Shotgun Shell Loading Machine Operator Name Role Phone Ana Gillespie APRN Primary Care Provider [phone] Encounter Details Date Type Department Care Team (Late st Contact Info) Description 06/18/2023 Telephone [place] [phone] Niru Mary Social History Tobacco Use Types [...] PM EDT Office Visit Cardiology at [address] [phone] Milagros Hernandez MD [facility] CARDIOLOGY [place] [phone] Scheduled Procedures Name Priority Associated Diagnoses Date/Ti me EGD, UPPER GI ENDOSCOPY (WRV U 2.09) Peptic stricture of esophagus documented as of this encounter Visit Diagnoses Not on filedocumented in this encounter Care Teams Shotgun Shell Loading Machine Operator Relationship Specialty Start Date End Date Ana Gillespie APRN [address] [place] [address] PCP - General Family Medicine 02/03/19 documented as of this encounter
--- OUTSIDE RECORDS SUMMARY | 2024-02-29 19:24 | XMS_ITS | Encounter Summary ---
Author Organization [facility] [place] [address] Care Team Providers Care Portfolio Director Name Role Phone Ana Gillespie APRN Primary Care Provider [phone] Encounter Details Date Type Department Care Team (Late st Contact Info) Description 05/25/2023 Orders [place] [phone] David Dejesus MD [facility] [place] [address] Primary parkinsonism Social History Tobacco Use Types [...] PM EDT Office Visit Cardiology at [address] [phone] Milagros Hernandez MD [facility] [place] [address] Scheduled Procedures Name Priority Associated Diagnoses Date/Ti me EGD, UPPER GI ENDOSCOPY (WRV U 2.09) Peptic stricture of esophagus documented as of this encounter Visit Diagnoses Diagnosis Primary parkinsonism Paralysis agitans documented in this encounter Care Teams Portfolio Director Relationship Specialty Start Date End Date Ana Gillespie APRN [address] [place] [address] PCP - General Family Medicine 02/03/19 documented as of this encounter
--- OUTSIDE RECORDS SUMMARY | 2024-02-29 19:24 | XMS_ITS | Encounter Summary ---
Author Organization [facility] Address [facility] [place] [address] Care Team Providers Care Boring Machine Set Up Operator Jig Name Role Phone Ana Gillespie APRN Primary Care Provider [phone] Encounter Details Date Type Department Care Team (Late st Contact Info) Description 06/15/2023 Telephone [place] [phone] Niru Mary Social History Tobacco Use Types [...] PM EDT Office Visit Cardiology at [address] [phone] Milagros Hernandez MD [facility] CARDIOLOGY [place] [phone] Scheduled Procedures Name Priority Associated Diagnoses Date/Ti me EGD, UPPER GI ENDOSCOPY (WRV U 2.09) Peptic stricture of esophagus documented as of this encounter Visit Diagnoses Not on filedocumented in this encounter Care Teams Boring Machine Set Up Operator Jig Relationship Specialty Start Date End Date Ana Gillespie APRN [address] [place] [address] PCP - General Family Medicine 02/03/19 documented as of this encounter
--- OUTSIDE RECORDS SUMMARY | 2024-02-29 19:24 | XMS_ITS | Encounter Summary ---
Author Organization [facility] Address [facility] [place] [address] Care Team Providers Care Drill Rig Operator Name Role Phone Ana Gillespie APRN Primary Care Provider Encounter Details Date Type Department Care Team (Late st Contact Info) Description 08/02/2023 11:03 AM EDT Anesthesia [place] [phone] Maddie Hughes MD [facility] [place] [address] Anesthesia Record Procedure Summary Procedure Name Responsible [...] for questions and acknowledgement of understanding claire ALARM INVESTIGATOR 1137 Extubation/LMA Out 1139 an stop data [...] Parris Quinn RN ETT Mask Ventilation: Ea sy (1); ETT Type: Uncuffed; ETT Size: 7 [...] Procedure Summary Date: 08/02/23 Room / Location: [facility] ENDO 2 / [facility] ENDOSCOPY Anesthesia Start: 1103 Anesthesia Stop: 1148 Procedure: EGD,WITH DILATION ESOPHAGUS WITH BALLOON,< 30 MM (WRVU 2.67) Diagnosis: 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 Patient Location: PACU/[facility] Level of Consciousness: Awake and Alert [...] IR G-Tube Check/Change 11/27/2022 Hang Cooper, ROSLYN [facility] INTERVENTIONL RAD ??? IR G-TUBE CHECK/CHANGE 03/10/2023 IR G-Tube Check/Change 03/10/2023 Geronimo Chambers, DO [facility] INTERVENTIONL RAD ??? IR G-TUBE CHECK/CHANGE 04/06/2023 IR G-Tube Check/Change 04/06/2023 Gavin Carrillo MD [facility] INTERVENTIONL RAD ??? IR G-TUBE CHECK/CHANGE 05/09/2023 IR G-Tube Check/Change [facility] INTERVENTIONL RAD ??? IR G-TUBE CHECK/CHANGE 07/09/2023 IR G-Tube Check/Change [facility] INTERVENTIONL RAD ??? IR G-TUBE PLACEMENT 09/11/2022 IR G-Tube Placement 09/11/2022 Moustapha Hart MD [facility] INTERVENTIONL RAD ??? IR SUTURE RELEASE 09/25/2022 IR Suture Release 09/25/2022 Yoselin Ghosh PA [facility] INTERVENTIONL RAD ??? PERCUTANEOUS GASTROSTOMY N/A 09/11/2022 PERCUTANEOUS GASTROSTOMY performed by Aiden Flores MD at [facility] CATY ??? PRO COLONOSCOPY, BIOPSY N/A 03/20/2016 COLONOSCOPY FLEXIBLE, WITH BX performed by David Dejesus MD at [facility] ENDOSCOPY ??? PRO COLONOSCOPY, DIAGNOSTIC N/A 03/01/2020 COLONOSCOPY, DIAGNOSTIC performed by David Dejesus MD at [facility] ENDOSCOPY ??? PRO ENDOSCOPIC US EXAM, ESOPH N/A 03/31/2022 UPPER EUS- ENDOSCOPIC ULTRASOUND performed by David Dejesus MD at [facility] ENDOSCOPY ??? PRO UP GI ENDOSCOPY, BALL DIL, 30MM N/A 12/24/2022 EGD,WITH DILATION ESOPHAGUS WITH BALLOON,< 30 MM (WRVU 2.67) performed by David Dejesus [facility] ENDOSCOPY ??? PRO UP GI ENDOSCOPY, BALL DIL, 30MM N/A 01/12/2023 EGD,WITH DILATION ESOPHAGUS WITH BALLOON,< 30 MM (WRVU 2.67) performed by David Dejesus [facility] ENDOSCOPY ??? PRO UP GI ENDOSCOPY, BALL DIL, 30MM N/A 02/26/2023 EGD,WITH DILATION ESOPHAGUS WITH BALLOON,< 30 MM (WRVU 2.67) performed by David Dejesus [facility] ENDOSCOPY ??? PRO UP GI ENDOSCOPY, BALL DIL, 30MM N/A 03/16/2023 EGD,WITH DILATION ESOPHAGUS WITH BALLOON,< 30 MM (WRVU 2.67) performed by David Dejesus [facility] ENDOSCOPY ??? PRO UP GI ENDOSCOPY, BALL DIL, 30MM N/A 03/30/2023 EGD,WITH DILATION ESOPHAGUS WITH BALLOON,< 30 MM (WRVU 2.67) performed by David Dejesus [facility] ENDOSCOPY ??? PRO UP GI ENDOSCOPY, BALL DIL, 30MM N/A 04/30/2023 EGD,WITH DILATION ESOPHAGUS WITH BALLOON,< 30 MM (WRVU 2.67) performed by David Dejesus [facility] ENDOSCOPY ??? PRO UP GI ENDOSCOPY, BALL DIL, 30MM N/A 06/01/2023 EGD,WITH DILATION ESOPHAGUS WITH BALLOON,< 30 MM (WRVU 2.67) performed by David Dejesus [facility] ENDOSCOPY ??? PRO UPPER GI ENDOSCOPY, BIOPSY N/A 04/03/2014 UPPER GASTROINTESTINAL ENDOSCOPY,WITH BIOPSY SINGLE OR MULTIPLE [facility] ??? PRO UPPER GI ENDOSCOPY, BIOPSY N/A 03/20/2016 EGD WITH BIOPSY performed by David Dejesus MD at [facility] ENDOSCOPY ??? PRO UPPER GI ENDOSCOPY, BIOPSY N/A 11/22/2018 EGD WITH BIOPSY (WRVU 2.49) performed by David Dejesus MD at [facility] ENDOSCOPY ??? PRO UPPER GI ENDOSCOPY, BIOPSY N/A 03/01/2020 UPPER GASTROINTESTINAL ENDOSCOPY,WITH BIOPSY SINGLE OR MULTIPLE (WRVU 2.49) performed by David Dejesus MD at [facility] ENDOSCOPY ??? PRO UPPER GI ENDOSCOPY, BIOPSY N/A 09/23/2021 EGD WITH BIOPSY (WRVU 2.49) performed by David Dejesus MD at [facility] ENDOSCOPY ??? PRO UPPER GI ENDOSCOPY, BIOPSY N/A 03/31/2022 EGD WITH BIOPSY (WRVU 2.49) performed by David Dejesus MD at [facility] ENDOSCOPY ??? PRO UPPER GI ENDOSCOPY, BIOPSY N/A 07/03/2022 EGD WITH BIOPSY (WRVU 2.49) performed by David Dejesus MD at [facility] ENDOSCOPY ??? PRO UPPER GI ENDOSCOPY, DIAGNOSTIC N/A 04/03/2014 EGD, UPPER GI ENDOSCOPY performed by David Dejesus MD at [facility] ENDOSCOPY ??? PRO UPPER GI ENDOSCOPY, DIAGNOSTIC N/A 03/01/2020 EGD, UPPER GI ENDOSCOPY performed by David Dejesus MD at [facility] ENDOSCOPY ??? PRO UPPER GI ENDOSCOPY, DIAGNOSTIC N/A 09/09/2022 EGD, UPPER GI ENDOSCOPY (WRVU 2.09) performed by Ayo Russ MD at [facility] MAIN OR Social History Tobacco [...] with patient and spouse. Plan discussed with ALARM INVESTIGATOR and attending. Anesthesia Screening documented in this encounter Plan of Treatment Upcoming Encounters Date Type Department Care Team (Late st Contact Info) Description 03/10/2024 4:00 PM EDT Office Visit Cardiology at [address] [phone] Milagros Hernandez MD [facility] [place] [address] Scheduled Procedures Name Priority Associated Diagnoses Date/Ti [...] mg documented in this encounter Care Teams Drill Rig Operator Relationship Specialty Start Date End Date Ana Gillespie APRN [address] [place] [address] PCP - General Family Medicine 02/03/19 documented as of this encounter
--- OUTSIDE RECORDS SUMMARY | 2024-02-29 19:24 | XMS_ITS | Encounter Summary ---
Author Organization [facility] Address [facility] [place] [address] Care Team Providers Care Supervisor Painting Shipyard Name Role Phone Ana Gillespie APRN Primary Care Provider [phone] Encounter Details Date Type Department Care Team (Late st Contact Info) Description 07/22/2023 [place] [phone] Niru Mary Social History Tobacco Use Types [...] PM EDT Office Visit Cardiology at [address] [phone] Milagros Hernandez MD [facility] CARDIOLOGY [place] [phone] Scheduled Procedures Name Priority Associated Diagnoses Date/Ti me EGD, UPPER GI ENDOSCOPY (WRV U 2.09) Peptic stricture of esophagus documented as of this encounter Visit Diagnoses Not on filedocumented in this encounter Care Teams Supervisor Painting Shipyard Relationship Specialty Start Date End Date Ana Gillespie APRN [address] [place] [address] PCP - General Family Medicine 02/03/19 documented as of this encounter
--- OUTSIDE RECORDS SUMMARY | 2024-02-29 19:25 | XMS_ITS | Encounter Summary ---
Author Organization [facility] [place] [address] Care Team Providers Care Space Systems Operations Manager Name Role Phone Ana Gillespie APRN Primary Care Provider [phone] Encounter Details Date Type Department Care Team (Late st Contact Info) Description 03/30/2023 6:01 PM EST Anesthesia [place] [phone] Betty Bhagat MD [facility] [place] [address] Cristine Gomez CRNA [facility] [place] [address] Anesthesia Record Procedure Summary Procedure Name Responsible [...] Moran 03/10/23 1618 by Sergey Jordan RN documented [...] Procedure Summary Date: 03/30/23 Room / Location: [facility] ENDO 2 / [facility] ENDOSCOPY Anesthesia Start: 1800 Anesthesia Stop: Procedure: EGD,WITH DILATION ESOPHAGUS WITH BALLOON,< 30 MM (WRVU 2.67) (Trunk) Diagnosis: Peptic stricture of esophagus (peptic stricture dilation - please schedule Wednesday before ) Surgeons: David Dejesus MD Responsible Provider: Betty Bhagat MD Anesthesia Type: general ASA Status: 3 All Anesthesia Providers: Anesthesiologist: Betty Bhagat MD PUMP STITCHER: Cristine Gomez CRNA Vitals Value Taken Time BP 114/57 03/30/23 1833 Temp Pulse Resp 16 03/30/233 SpO2 99 % 03/30/231838 Pain Level 0 03/30/231832 Vitals shown include unfiled device data. Patient Location: PACU/[facility] Level [...] y.o. female. Procedure(s): EGD, [facility] Patient Active Problem List Diagnosis [...] IR G-Tube Check/Change 11/27/2022 Hang Cooper PA [facility] INTERVENTIONL RAD ??? IR G-TUBE CHECK/CHANGE 03/10/2023 IR G-Tube Check/Change 03/10/2023 Geronimo Chambers, [facility] INTERVENTIONL RAD ??? IR G-TUBE PLACEMENT 09/11/2022 IR G-Tube Placement 09/11/2022 Moustapha Hart MD [facility] INTERVENTIONL RAD ??? IR SUTURE RELEASE 09/25/2022 IR Suture Release 09/25/2022 Yoselin Ghosh PA [facility] INTERVENTIONL RAD ??? PERCUTANEOUS GASTROSTOMY N/A 09/11/2022 PERCUTANEOUS GASTROSTOMY performed by Aiden Flores MD at [facility] CATY ??? PRO COLONOSCOPY, BIOPSY N/A 03/20/2016 COLONOSCOPY FLEXIBLE, WITH BX performed by David Dejesus MD at [facility] ENDOSCOPY ??? PRO COLONOSCOPY, DIAGNOSTIC N/A 03/01/2020 COLONOSCOPY, DIAGNOSTIC performed by David Dejesus MD at [facility] ENDOSCOPY ??? PRO ENDOSCOPIC US EXAM, ESOPH N/A 03/31/2022 UPPER EUS- ENDOSCOPIC ULTRASOUND performed by David Dejesus MD at [facility] ENDOSCOPY ??? PRO UP GI ENDOSCOPY, BALL DIL, 30MM N/A 12/24/2022 EGD,WITH DILATION ESOPHAGUS WITH BALLOON,< 30 MM (WRVU 2.67) performed by David Dejesus [facility] ENDOSCOPY ??? PRO UP GI ENDOSCOPY, BALL DIL, 30MM N/A 01/12/2023 EGD,WITH DILATION ESOPHAGUS WITH BALLOON,< 30 MM (WRVU 2.67) performed by David Dejesus [facility] ENDOSCOPY ??? PRO UP GI ENDOSCOPY, BALL DIL, 30MM N/A 02/26/2023 EGD,WITH DILATION ESOPHAGUS WITH BALLOON,< 30 MM (WRVU 2.67) performed by David Dejesus [facility] ENDOSCOPY ??? PRO UP GI ENDOSCOPY, BALL DIL, 30MM N/A 03/16/2023 EGD,WITH DILATION ESOPHAGUS WITH BALLOON,< 30 MM (WRVU 2.67) performed by David Dejesus [facility] ENDOSCOPY ??? PRO UPPER GI ENDOSCOPY, BIOPSY N/A 04/03/2014 UPPER GASTROINTESTINAL ENDOSCOPY,WITH BIOPSY SINGLE OR MULTIPLE [facility] ??? PRO UPPER GI ENDOSCOPY, BIOPSY N/A 03/20/2016 EGD WITH BIOPSY performed by David Dejesus MD at [facility] ENDOSCOPY ??? PRO UPPER GI ENDOSCOPY, BIOPSY N/A 11/22/2018 EGD WITH BIOPSY (WRVU 2.49) performed by David Dejesus MD at [facility] ENDOSCOPY ??? PRO UPPER GI ENDOSCOPY, BIOPSY N/A 03/01/2020 UPPER GASTROINTESTINAL ENDOSCOPY,WITH BIOPSY SINGLE OR MULTIPLE (WRVU 2.49) performed by David Dejesus MD at [facility] ENDOSCOPY ??? PRO UPPER GI ENDOSCOPY, BIOPSY N/A 09/23/2021 EGD WITH BIOPSY (WRVU 2.49) performed by David Dejesus MD at [facility] ENDOSCOPY ??? PRO UPPER GI ENDOSCOPY, BIOPSY N/A 03/31/2022 EGD WITH BIOPSY (WRVU 2.49) performed by David Dejesus MD at [facility] ENDOSCOPY ??? PRO UPPER GI ENDOSCOPY, BIOPSY N/A 07/03/2022 EGD WITH BIOPSY (WRVU 2.49) performed by David Dejesus MD at [facility] ENDOSCOPY ??? PRO UPPER GI ENDOSCOPY, DIAGNOSTIC N/A 04/03/2014 EGD, UPPER GI ENDOSCOPY performed by David Dejesus MD at [facility] ENDOSCOPY ??? PRO UPPER GI ENDOSCOPY, DIAGNOSTIC N/A 03/01/2020 EGD, UPPER GI ENDOSCOPY performed by David Dejesus MD at [facility] ENDOSCOPY ??? PRO UPPER GI ENDOSCOPY, DIAGNOSTIC N/A 09/09/2022 EGD, UPPER GI ENDOSCOPY (WRVU 2.09) performed by Ayo Russ MD at [facility] MAIN OR Social History Tobacco Use [...] risks discussed with patient. Plan discussed with PUMP STITCHER and attending. Anesthesia Screening documented in this encounter Plan of Treatment Upcoming Encounters Date Type Department Care Team (Late st Contact Info) Description 03/10/2024 4:00 PM EDT Office Visit Cardiology at [address] [phone] Milagros Hernandez MD [facility] [place] [address] Scheduled Procedures Name Priority Associated Diagnoses Date/Ti [...] at 1903, Endoscopy (Day of Procedure) New 03/30/2023 6:01 PM EST lidocaine (pf) (Xylocaine) (20 mg/mL) 2% injection syringe Intravenous, PRN, Starting on Wed03/30/23 at 1806, Until Wed03/30/23 at 1840, Anesthesia Intra-op, Routine Given 03/30/2023 6:06 PM EST 60 mg propofoL (Diprivan) (10 mg/mL) infusion Intravenous, CONTINUOUS PRN, Starting on Wed03/30/23 at 1806, Until Wed03/30/23 at 1840, Anesthesia Intra-op, Routine New 03/30/2023 6:06 PM EST 150 mcg/kg/min 59.58 mL/hr propofoL (Diprivan) 10 mg/mL bolus injection (Anesthesia) Intravenous, PRN, Starting on Wed03/30/23 at 1806, Until Wed03/30/23 at 1840, Anesthesia Intra-op Given 03/30/2023 6:06 PM EST 50 mg documented in this encounter Care Teams Space Systems Operations Manager Relationship Specialty Start Date End Date Ana Gillespie APRN [address] [place] [address] PCP - General Family Medicine 02/03/19 documented as of this encounter
--- OUTSIDE RECORDS SUMMARY | 2024-02-29 19:25 | XMS_ITS | Encounter Summary ---
Author Organization [facility] [place] [address] Care Team Providers Care Transport Company Manager Name Role Phone Ana Gillespie APRN Primary Care Provider [phone] Encounter Details Date Type Department Care Team (Late st Contact Info) Description 05/05/2023 Telephone Gastroenterology at [facility] [place] [address] Parris Maravilla Social History Tobacco Use Types [...] - 05/05/2023 10:15 AM EST Jennifer Irving [id number] Diagnosis/Indication: repeat petic stricture dilation - please [...] 3 procedures You must have a responsible green party who will drive you to your procedure, stay on campus for the entire duration of your procedure, and drive you home from your procedure. Who will likely be your cpr ambulance driver for the procedure? *Please Verify the [...] PM EDT Office Visit Cardiology at [address] [address] [facility] [place] [address] Scheduled Procedures Name Priority Associated Diagnoses Date/Ti me EGD, UPPER GI ENDOSCOPY (WRV U 2.09) Peptic stricture of esophagus documented as of this encounter Visit Diagnoses Not on filedocumented in this encounter Care Teams Transport Company Manager Relationship Specialty Start Date End Date Ana Gillespie APRN [address] [place] [address] PCP - General Family Medicine 02/03/19 documented as of this encounter
--- OUTSIDE RECORDS SUMMARY | 2024-02-29 19:25 | XMS_ITS | Encounter Summary ---
Author Organization [facility]ly [facility] Address [facility] [place] [address] Care Team Providers Care Heel Washer Stringing Machine Operator Name Role Phone Ana Gillespie VAUGHN Primary Care Provider [phone] Reason for Visit * Reason Onset Date Comments Questions 04/13/2023 Low BP reading Encounter Details Date Type Department Care Team (Late st Contact Info) Description 04/13/2023 Telephone Cardiology at [address] [phone] Chela Walsh, RN Questions (Low BP reading) [...] PM EDT Office Visit Cardiology at [address] [address] Milagros Hernandez MD [facility] [place] [address] Scheduled Procedures Name Priority Associated Diagnoses Date/Ti me EGD, UPPER GI ENDOSCOPY (WRV U 2.09) Peptic stricture of esophagus documented as of this encounter Visit Diagnoses Not on filedocumented in this encounter Care Teams Heel Washer Stringing Machine Operator Relationship Specialty Start Date End Date Ana Gillespie APRN [address] [place] [address] PCP - General Family Medicine 02/03/19 documented as of this encounter
--- OUTSIDE RECORDS SUMMARY | 2024-02-29 19:25 | XMS_ITS | Encounter Summary ---
Author Organization [facility] Address [facility] [place] [address] Care Team Providers Care Veneer Stock Layer Name Role Phone Ana Gillespie APRN Primary Care Provider [phone] Reason for Visit * Reason Onset Date Comments Medication Refill 03/03/2023 Metoprolol Suc cinate, instruction change. Encounter Details Date Type Department Care Team (Late st Contact Info) Description 03/03/2023 Refill Cardiology at [address] [phone] Milagros Hernandez MD [facility] [place] [address] Medication Refill (Metoprolol Succinate, instruction change.) Social [...] PM EDT Office Visit Cardiology at [address] [address] Milagros Hernandez MD [facility] [place] [address] Scheduled Procedures Name Priority Associated Diagnoses Date/Ti me EGD, UPPER GI ENDOSCOPY (WRV U 2.09) Peptic stricture of esophagus documented as of this encounter Visit Diagnoses Diagnosis HFrEF (heart failure with reduced ejection fraction) documented in this encounter Care Teams Veneer Stock Layer Relationship Specialty Start Date End Date Ana Gillespie APRN [address] [place] [address] PCP - General Family Medicine 02/03/19 documented as of this encounter
--- OUTSIDE RECORDS SUMMARY | 2024-02-29 19:25 | XMS_ITS | Encounter Summary ---
Author Organization [facility] [place] [address] Care Team Providers Care Auto Body Repairer Name Role Phone Ana Gillespie MAINTENANCE INSTRUCTOR Primary Care Provider [phone] Encounter Details Date Type Department Care Team (Late st Contact Info) Description 03/01/2023 Telephone [facility] [place] [address] Parris Maravilla Social History Tobacco Use Types [...] - 03/01/2023 4:20 PM EDT Jennifer Irving [id number] Diagnosis/Indication: stricture dilation Please review patient chart [...] your procedure. Who will likely be your truck driver teamster for the procedure? *Please Verify [...] PM EDT Office Visit Cardiology at [address] [address] Milagros Hernandez MD [facility] [place] [address] Scheduled Procedures Name Priority Associated Diagnoses Date/Ti me EGD, UPPER GI ENDOSCOPY (WRV U 2.09) Peptic stricture of esophagus documented as of this encounter Visit Diagnoses Not on filedocumented in this encounter Care Teams Auto Body Repairer Relationship Specialty Start Date End Date Ana Gillespie APRN [address] [place] [address] PCP - General Family Medicine 02/03/19 documented as of this encounter
--- OUTSIDE RECORDS SUMMARY | 2024-02-29 19:25 | XMS_ITS | Encounter Summary ---
Author Organization [facility] Address [facility] [place] [address] Care Team Providers Care Construction Tech Name Role Phone Ana Gillespie VAUGHN Primary Care Provider [phone] Encounter Details Date Type Department Care Team (Latest Contact Info) Description 04/30/2023 1:29 PM EST - 04/30/2023 4:43 PM EST Hospital Encounter Gastroenterology at [facility] [place] [address] David Dejesus MD [facility] [place] [address] Discharge Disposition: Home Social History Tobacco Use [...] the day after the procedure, use an yovy-iaq-gmypuxw spray to numb your throat. Sucking on [...] occurs, please contact your Doctor. Please call [phone] before 8pm Mon-Fri with problems, questions or concerns. If you call after 8pm or on weekends, call the Hospital at [phone] and ask to speak to the [employer] Upholsterer police surgeon and the cd reactor operator will contact that person for you. When should you call for help? Call [phone] anytime you think you may need emergency [...] more? Visit our health information library at [email or web address] You can also view health information on [employer], your personal patient account. Log in or sign uptoday. Enter J014 in the search box to learn more about Esophageal Dilation: What to Expect at Home. Current as of: December 18, 2018Content Version: 12.4 ?? [id number] [employer]. Care instructions adapted under license by [facility]. If you have questions about a medical condition or this instruction, always ask your healthcare professional. [employer] disclaims any warranty or liability for your [...] strips. 300 each 3 12/14/2014 Blood-Glucose Meter (Mingle360TOUCH ULTRA2) KitIndications:Type 2 diabetes mellitus, uncontrolled by Other route. 1 = one blood glucose meter kit. 1 each 0 12/14/2014 Insulin [place], Disposable, (BD INSULIN PEN NEEDLE UF MINI) [...] PM EDT Office Visit Cardiology at [address] [address] Milagros Hernandez MD [facility] [address] Scheduled Procedures Name Priority Associated Diagnoses Date/Ti mn EGD, UPPER GI ENDOSCOPY (WRV U 2.09) Peptic stricture of esophagus documented as of this encounter Procedures Procedure Name Priority Date/Time Associated Diagnosis Comments POCT GLUCOSE Routine 04/30/2023 4:13 PM EST Up Gi Endoscopy, Ball Dil, 30Mm ([id number]) 04/30/2023 3:25 PM EST Peptic stricture of esophagus UPPER GI ENDOSCOPY Routine 04/30/2023 3: 14 PM EST POCT GLUCOSE Routine 04/30/2023 2:09 PM EST documented in this encounter Results * POCT Glucose (04/30/2023 4:13 PM EST) Glucose, POC 81 65 - 199 mg/dL [facility] Comment: Supplemental ranges: <140 mg/dL before meals <180 mg/dL all other times of the day Blood 04/30/2023 4:13 PM EST 04/30/2023 4:13 PM EST David Dejesus MD POINT OF CARE TEST ORDERABLES Performing Organization Address City/State/[facility] Co de Phone Number [facility] [place] [address] * UPPER GI ENDOSCOPY (04/30/2023 3:14 PM EST) [facility] UPPER GI ENDOSCOPY [facility] Endoscopy Procedure Date: 04/30/2023 3:14 PM ? Patient Name: Jennifer Irving ? N: [id number] ? Date of : 1960 ? Age: 62 ? Order #: [id number] ? Instrument Name: [id number] ? Procedure: ? Upper GI endoscopy Indications: [...] PROVATION 04/30/2023 3:14 PM EST Ana Gillespie MOTOR EXPRESS CLERK GENERAL SURGICAL ORD ERABLES PROVATION * POCT Glucose (04/30/2023 2:09 PM EST) Glucose, POC 75 65 - 199 mg/dL [facility] Comment: Supplemental ranges: <140 mg/dL before meals <180 mg/dL all other times of the day Blood 04/30/2023 2:09 PM EST 04/30/2023 2:09 PM EST David Dejesus MD POINT OF CARE TEST ORDERABLES [facility] [place] [address] documented in this encounter Visit Diagnoses Not [...] RN) documented in this encounter Care Teams Construction Tech Relationship Specialty Start Date End Date Ana Gillespie APRN [address] [place] [address] PCP - General Family Medicine 02/03/19 documented as of this encounter
--- OUTSIDE RECORDS SUMMARY | 2024-02-29 19:25 | XMS_ITS | Encounter Summary ---
Author Organization [facility] [place] [address] Care Team Providers Care Concession Worker Name Role Phone Ana Gillespie APRN Primary Care Provider [phone] Encounter Details Date Type Department Care Team (Latest Contact Info) Description 04/12/2023 9:20 AM EST TH Visit (TeleHealth) Cardiology at [address] [place] [address] Milagros Hernandez MD [facility] [place] [address] Stress-induced cardiomyopathy Social History Tobacco Use Types [...] [facility] [place] [address] CARDIOLOGY OUTPATIENT NOTE PRIMARY CARE PROVIDER: Ana [...] glucose meter kit. 1 each 0 Insulin [place], Disposable, (BD INSULIN PEN NEEDLE UF MINI) 31 x 3/16 Needle 1 Device by [facility]Non-Drug; [...] esophagus and esophageal stricture. She established with fl in Cardiology clinic in Jan 2023 and presents today for planned follow up. This visit is a Telehealth Visit as the patient was unable to safely make the visit in person due to inclement weather. The patient was located in [place] at the time of the visit. We [...] stricture dilations and unfortunately was admitted to [facility] at the end of February shortly [...] next visit. Milagros Hernandez MD Cardiovascular Medicine [facility] 04/12/2023 documented in this encounter Plan of Treatment Upcoming Encounters Date Type Department Care Team (Late st Contact Info) Description 03/10/2024 4:00 PM EDT Office Visit Cardiology at [address] [address] Milagros Hernandez MD [facility] [place] [address] Scheduled Procedures Name Priority Associated Diagnoses Date/Ti me EGD, UPPER GI ENDOSCOPY (WRV U 2.09) Peptic stricture of esophagus documented as of this encounter Visit Diagnoses Diagnosis Stress-induced cardiomyopathy Takotsubo syndrome documented in this encounter Care Teams Concession Worker Relationship Specialty Start Date End Date Ana Gillespie APRN [address] [place] [address] PCP - General Family Medicine 02/03/19 documented as of this encounter
--- OUTSIDE RECORDS SUMMARY | 2024-02-29 19:25 | XMS_ITS | Encounter Summary ---
Author Organization [facility] [place] [address] Care Team Providers Care Tour Bus Driver/Guide Name Role Phone Ana Gillespie APRN Primary Care Provider [phone] Encounter Details Date Type Department Care Team (Late Contact Info) Description 03/30/2023 Orders [place] [phone] David Dejesus MD [facility] [place] [address] Peptic stricture of esophagus Social History Tobacco [...] PM EDT Office Visit Cardiology at [address] [phone] Mialgros Hernandez MD [facility] [place] [address] Scheduled Orders Name Type Priority Associated Diagnoses [...] esophagus documented in this encounter Care Teams Tour Bus Driver/Guide Relationship Specialty Start Date End Date Ana Gillespie APRN [address] [place] [address] PCP - General Family Medicine 02/03/19 documented as of this encounter
--- OUTSIDE RECORDS SUMMARY | 2024-02-29 19:25 | XMS_ITS | Encounter Summary ---
Author Organization [facility] [place] [address] Care Team Providers Care Media Senior Recruiter Name Role Phone Ana Gillespie VAUGHN Primary Care Provider [phone] Reason for Referral * Diagnostic Test (Routine) - Closed Specialty Diagnoses / Procedures Referred By Esperanza rodríguez Referred To Contact Radiology Diagnoses Neuroleptic-induced parkinsonism Procedures IR G-Tube Check/Change Fannie Conde PA [facility] INTERVENTIONAL [place] [address] [place] [address] Referral ID Status Reason Start Date Expiration Date V isits Requested Visits Authorized [id number] Closed Specialty Service Requested 04/05/2023 10/03/2024 1 1 Encounter Details Date Type Department Care Team (Late st Contact Info) Description 04/05/2023 [place] [address] Fannie Conde PA [facility] INTERVENTIONAL [place] [address] Social History Tobacco Use Types Packs/Day Years [...] PM EDT Office Visit Cardiology at [address] [address] Milagros Hernandez MD [facility] [place] [address] Scheduled Procedures Name Priority Associated Diagnoses Date/Ti [...] procedure was performed under fluoroscopic guidance. ??A management trainer fluoroscopic image was obtained. ??Contrast was injected through the barba catheter and another fluoroscopic image was obtained. ??Through the catheter, an 0.035 stiff angled glide wire was advanced. ??The catheter was removed. ??Over the wire, a new 16-Fr nrh-pek-tnndsjd (ESTRELLITA) gastrostomy catheter was advanced. ??The retention balloon was inflated with 5 cc of sterile water. ??The gastrostomy was injected with contrast and repeat fluoroscopic image was obtained. ??A sterile dressing was applied. ?? Medications: 2% Lidocaine Jelly Topically Contrast: 10 cc Omnipaque 350, intra-enteric. Fluoroscopic Time: 0.2 minutes. Estimated Blood Loss: < 5 cc. Complications: ??No immediate. Findings: Placement of new 16-Fr rgh-fis-yqybudw (ESTRELLITA) catheter positioned within the stomach. ?? [...] Parkinsonism documented in this encounter Care Teams Media Senior Recruiter Relationship Specialty Start Date End Date Ana Gillespie APRN [address] [place] [address] PCP - General Family Medicine 02/03/19 documented as of this encounter
--- OUTSIDE RECORDS SUMMARY | 2024-02-29 19:25 | XMS_ITS | Encounter Summary ---
[place] [address] Care Team Providers Care Wall Covering Contractor Name Role Phone Ana Gillespie VAUGHN Primary Care Provider [phone] Reason for Referral * Diagnostic Test (Routine) - Closed Specialty Diagnoses / Procedures Referred By Contjovani t Referred To Contact Radiology Diagnoses Farrell's esophagus with high grade dysplasia Gastrostomy tube in place Procedures IR G-Tube Check/Change Steven Harding MD [facility] [place] [address] [place] [address] Referral ID Status Reason Start Date Expiration Date V isits Requested Visits Authorized [id number] Closed Specialty Service Requested 03/09/2023 09/06/2024 1 1 Encounter Details Date Type Department Care Team (Late st Contact Info) Description 03/09/2023 [place] [address] Steven Harding MD [facility] [place] [address] Farrell's esophagus with high grade dysplasia; Gastrostomy [...] at which time a balloon retrained 16 [place] EnFit G-tube was placed. Date/Procedure Meds Given/Comments [...] IR G-Tube Check/Change 11/27/2022 Hang Cooper PA [facility] INTERVENTIONL RAD IR G-TUBE PLACEMENT 09/11/2022 IR G-Tube Placement 09/11/2022 Moustapha Hart MD [facility] INTERVENTIONL RAD IR SUTURE RELEASE 09/25/2022 IR Suture Release 09/25/2022 Yoselin Ghosh PA [facility] INTERVENTIONL RAD PERCUTANEOUS GASTROSTOMY N/A 09/11/2022 PERCUTANEOUS GASTROSTOMY performed by Aiden Flores MD at [facility] CATY PRO COLONOSCOPY, BIOPSY N/A 03/20/2016 COLONOSCOPY FLEXIBLE, WITH BX performed by David Dejesus MD at [facility] ENDOSCOPY PRO COLONOSCOPY, DIAGNOSTIC N/A 03/01/2020 COLONOSCOPY, DIAGNOSTIC performed by David Dejesus MD at [facility] ENDOSCOPY PRO ENDOSCOPIC US EXAM, ESOPH N/A 03/31/2022 UPPER EUS- ENDOSCOPIC ULTRASOUND performed by David Dejesus MD at [facility] ENDOSCOPY PRO UP GI ENDOSCOPY, BALL DIL, 30MM N/A 12/24/2022 EGD,WITH DILATION ESOPHAGUS WITH BALLOON,< 30 MM (WRVU 2.67) [facility] UP GI ENDOSCOPY, BALL DIL, 30MM N/A 01/12/2023 EGD,WITH DILATION ESOPHAGUS WITH BALLOON,< 30 MM (WRVU 2.67) performed by David Dejesus MDat [facility] ENDOSCOPY PRO UP GI ENDOSCOPY, BALL DIL, 30MM N/A 02/26/2023 EGD,WITH DILATION ESOPHAGUS WITH BALLOON,< 30 MM (WRVU 2.67) [facility] ENDOSCOPY PRO UPPER GI ENDOSCOPY, BIOPSY N/A 04/03/2014 UPPER GASTROINTESTINAL ENDOSCOPY,WITH BIOPSY SINGLE OR MULTIPLE performed by David Dejesus MDat [facility] ENDOSCOPY PRO UPPER GI ENDOSCOPY, BIOPSY N/A 03/20/2016 EGD WITH BIOPSY performed by David Dejesus MD at [facility] ENDOSCOPY PRO UPPER GI ENDOSCOPY, BIOPSY N/A 11/22/2018 EGD WITH BIOPSY (WRVU 2.49) performed by David Dejesus MD at [facility] ENDOSCOPY PRO UPPER GI ENDOSCOPY, BIOPSY N/A 03/01/2020 UPPER GASTROINTESTINAL ENDOSCOPY,WITH BIOPSY SINGLE OR MULTIPLE (WRVU 2.49) performed by David Dejesus MD at [facility] ENDOSCOPY PRO UPPER GI ENDOSCOPY, BIOPSY N/A 09/23/2021 EGD WITH BIOPSY (WRVU 2.49) performed by David Dejesus MD at [facility] ENDOSCOPY PRO UPPER GI ENDOSCOPY, BIOPSY N/A 03/31/2022 EGD WITH BIOPSY (WRVU 2.49) performed by David Dejesus MD at [facility] ENDOSCOPY PRO UPPER GI ENDOSCOPY, BIOPSY N/A 07/03/2022 EGD WITH BIOPSY (WRVU 2.49) performed by David Dejesus MD at [facility] ENDOSCOPY PRO UPPER GI ENDOSCOPY, DIAGNOSTIC N/A 04/03/2014 EGD, UPPER GI ENDOSCOPY performed by David Dejesus MD at [facility] ENDOSCOPY PRO UPPER GI ENDOSCOPY, DIAGNOSTIC N/A 03/01/2020 EGD, UPPER GI ENDOSCOPY performed by David Dejesus MD at [facility] ENDOSCOPY PRO UPPER GI ENDOSCOPY, DIAGNOSTIC N/A 09/09/2022 EGD, UPPER GI ENDOSCOPY (WRVU 2.09) performed by Ayo Russ MD at [facility] MAIN OR Medications: Current Outpatient Medications [...] 3 lancets (ONE TOUCH DELICA) [facility] 1 each by Other route 3 times daily. by Other route. 1 box= 100 test strips; 3 boxes = 300 test strips. 300 each 3 Blood-Glucose Meter (ONETOUCH ULTRA2) Kit by Other route. 1 = one blood glucose meter kit. 1 each 0 Insulin [place], Disposable, (BD INSULIN PEN NEEDLE UF MINI) 31 x 3/16 Needle 1 Device by [facility].(Non-Drug; Combo Route) route 3 [...] PM EDT Office Visit Cardiology at [address] [address] Milagros Hernandez MD [facility] [place] [address] Scheduled Procedures Name Priority Associated Diagnoses Date/Ti [...] procedure was performed under fluoroscopic guidance. ??A welder repair fluoroscopic image was obtained. ??Contrast was injected through the gastrostomy catheter and another fluoroscopic image was obtained. ??Through the catheter, an 0.035 Amplatz wire was advanced. ??The catheter was removed. ??Over the wire, a new 16-Fr vdh-ari-hukzmls (ESTRELLITA) gastrostomy catheter was advanced. ??The retention [...] gastric lumen. ?? Exchange for new 16-Fr dyw-zcz-khbteuc (ESTRELLITA) catheter positioned within the stomach. ?? [...] place documented in this encounter Care Teams Wall Covering Contractor Relationship Specialty Start Date End Date Ana Gillespie APRN [address] [place] [address] PCP - General Family Medicine 02/03/19 documented as of this encounter
--- OUTSIDE RECORDS SUMMARY | 2024-02-29 19:25 | XMS_ITS | Encounter Summary ---
Author Organization [facility] [place] [address] Care Team Providers Care Radiator Specialist Name Role Phone Ana Gillespie VAUGHN Primary Care Provider [phone] Encounter Details Date Type Department Care Team (Late st Contact Info) Description 04/19/2023 Telephone [place] [phone] Meka Vera Social History Tobacco Use Types [...] PM EDT Office Visit Cardiology at [address] [phone] Milagros Hernandez MD [facility] [place] [address] Scheduled Procedures Name Priority Associated Diagnoses Date/Ti me EGD, UPPER GI ENDOSCOPY (WRV U 2.09) Peptic stricture of esophagus documented as of this encounter Visit Diagnoses Not on filedocumented in this encounter Care Teams Radiator Specialist Relationship Specialty Start Date End Date Ana Gillespie APRN [address] [place] [address] PCP - General Family Medicine 02/03/19 documented as of this encounter
--- OUTSIDE RECORDS SUMMARY | 2024-02-29 19:25 | XMS_ITS | Encounter Summary ---
Author Organization [facility] Address [facility] [place] [address] Care Team Providers Care Plywood Layup Line Core Feeder Name Role Phone Ana Gillespie VAUGHN Primary Care Provider [phone] Reason for Referral * Diagnostic Test (Routine) - Closed Specialty Diagnoses / Procedures Referred By Esperanza rodríguez Referred To Contact Radiology Diagnoses Problem with gastrostomy tube Procedures IR G-Tube Check/Change Jaime Chavez MD [facility] [place] [address] [place] [address] Referral ID Status Reason Start Date Expiration Date V isits Requested Visits Authorized [id number] Closed Specialty Service Requested 05/09/2023 11/06/2024 1 1 Encounter Details Date Type Department Care Team (Late st Contact Info) Description 05/09/2023 [place] [address] Jaime Chavez MD [facility] [place] [address] Encounter for screening mammogram for breast cancer; [...] out for which they sought treatment at [facility]. A barba was placed into the tract. [...] IR G-Tube Check/Change 11/27/2022 Hang Cooper PA [facility] INTERVENTIONL RAD IR G-TUBE CHECK/CHANGE 03/10/2023 IR G-Tube Check/Change 03/10/2023 Geronimo Chambers DO [facility] INTERVENTIONL RAD IR G-TUBE CHECK/CHANGE 04/06/2023 IR G-Tube Check/Change 04/06/2023 Gavin Carrillo MD [facility] INTERVENTIONL RAD IR G-TUBE PLACEMENT 09/11/2022 IR G-Tube Placement 09/11/2022 Moustapha Hart MD [facility] INTERVENTIONL RAD IR SUTURE RELEASE 09/25/2022 IR Suture Release 09/25/2022 Yoselin Ghosh PA [facility] INTERVENTIONL RAD PERCUTANEOUS GASTROSTOMY N/A 09/11/2022 PERCUTANEOUS GASTROSTOMY performed by Aiden Flores MD at [facility] CATY PRO COLONOSCOPY, BIOPSY N/A 03/20/2016 COLONOSCOPY FLEXIBLE, WITH BX performed by David Dejesus MD at [facility] ENDOSCOPY PRO COLONOSCOPY, DIAGNOSTIC N/A 03/01/2020 COLONOSCOPY, DIAGNOSTIC performed by David Dejesus MD at [facility] ENDOSCOPY PRO ENDOSCOPIC US EXAM, ESOPH N/A 03/31/2022 UPPER EUS- ENDOSCOPIC ULTRASOUND performed by David Dejesus MD at [facility] ENDOSCOPY PRO UP GI ENDOSCOPY, BALL DIL, 30MM N/A 12/24/2022 EGD,WITH DILATION ESOPHAGUS WITH BALLOON,< 30 MM (WRVU 2.67) performed by David Dejesus [facility] ENDOSCOPY PRO UP GI ENDOSCOPY, BALL DIL, 30MM N/A 01/12/2023 EGD,WITH DILATION ESOPHAGUS WITH BALLOON,< 30 MM (WRVU 2.67) performed by David Dejesus [facility] ENDOSCOPY PRO UP GI ENDOSCOPY, BALL DIL, 30MM N/A 02/26/2023 EGD,WITH DILATION ESOPHAGUS WITH BALLOON,< 30 MM (WRVU 2.67) performed by David Dejesus [facility] ENDOSCOPY PRO UP GI ENDOSCOPY, BALL DIL, 30MM N/A 03/16/2023 EGD,WITH DILATION ESOPHAGUS WITH BALLOON,< 30 MM (WRVU 2.67) performed by David Dejesus [facility] ENDOSCOPY PRO UP GI ENDOSCOPY, BALL DIL, 30MM N/A 03/30/2023 EGD,WITH DILATION ESOPHAGUS WITH BALLOON,< 30 MM (WRVU 2.67) performed by David Dejesus [facility] ENDOSCOPY PRO UP GI ENDOSCOPY, BALL DIL, 30MM N/A 04/30/2023 EGD,WITH DILATION ESOPHAGUS WITH BALLOON,< 30 MM (WRVU 2.67) performed by David Dejesus [facility] ENDOSCOPY PRO UPPER GI ENDOSCOPY, BIOPSY N/A 04/03/2014 UPPER GASTROINTESTINAL ENDOSCOPY,WITH BIOPSY SINGLE OR MULTIPLE performed by David Dejesus [facility] ENDOSCOPY PRO UPPER GI ENDOSCOPY, BIOPSY N/A 03/20/2016 EGD WITH BIOPSY performed by David Dejesus MD at [facility] ENDOSCOPY PRO UPPER GI ENDOSCOPY, BIOPSY N/A 11/22/2018 EGD WITH BIOPSY (WRVU 2.49) performed by David Dejesus MD at [facility] ENDOSCOPY PRO UPPER GI ENDOSCOPY, BIOPSY N/A 03/01/2020 UPPER GASTROINTESTINAL ENDOSCOPY,WITH BIOPSY SINGLE OR MULTIPLE (WRVU 2.49) performed by David Dejesus MD at [facility] ENDOSCOPY PRO UPPER GI ENDOSCOPY, BIOPSY N/A 09/23/2021 EGD WITH BIOPSY (WRVU 2.49) performed by David Dejesus MD at [facility] ENDOSCOPY PRO UPPER GI ENDOSCOPY, BIOPSY N/A 03/31/2022 EGD WITH BIOPSY (WRVU 2.49) performed by David Dejesus MD at [facility] ENDOSCOPY PRO UPPER GI ENDOSCOPY, BIOPSY N/A 07/03/2022 EGD WITH BIOPSY (WRVU 2.49) performed by David Dejesus MD at [facility] ENDOSCOPY PRO UPPER GI ENDOSCOPY, DIAGNOSTIC N/A 04/03/2014 EGD, UPPER GI ENDOSCOPY performed by David Dejesus MD at [facility] ENDOSCOPY PRO UPPER GI ENDOSCOPY, DIAGNOSTIC N/A 03/01/2020 EGD, UPPER GI ENDOSCOPY performed by David Dejesus MD at [facility] ENDOSCOPY PRO UPPER GI ENDOSCOPY, DIAGNOSTIC N/A 09/09/2022 EGD, UPPER GI ENDOSCOPY (WRVU 2.09) performed by Ayo Russ MD at [facility] MAIN OR Medications: Current Outpatient [...] daily. 180 tablet 3 Blood Sugar Diagnostic (DocRun ULTRA TEST) Strip 1 each by Other [...] glucose meter kit. 1 each 0 Insulin [place], Disposable, (BD INSULIN PEN NEEDLE UF MINI) 31 x 3/16 Needle 1 Device by [facility].(Non-Drug; Combo Route) route 3 times daily as [...] PM EDT Office Visit Cardiology at [address] [address] Milagros Hernandez MD [facility] [address] Scheduled Procedures Name Priority Associated Diagnoses Date/Ti [...] tube documented in this encounter Care Teams Plywood Layup Line Core Feeder Relationship Specialty Start Date End Date Ana Gillespie, VAUGHN [address] [place] [address] PCP - General Family Medicine 02/03/19 documented as of this encounter
--- OUTSIDE RECORDS SUMMARY | 2024-02-29 19:25 | XMS_ITS | Encounter Summary ---
Author Organization [facility] Address [facility] [place] [address] Care Team Providers Care Drawer In Jacquard Loom Name Role Phone Ana Gillespie VAUGHN Primary Care Provider [phone] Encounter Details Date Type Department Care Team (Late st Contact Info) Description 04/30/2023 3:00 PM EST - 04/30/2023 3:45 PM EST Surgery Gastroenterology at [facility] [place] [address] David Dejesus MD [facility] [place] [address] EGD,WITH DILATION ESOPHAGUS WITH BALLOON,< 30 MM [...] the day after the procedure, use an ykcd-ycz-ljfnlmv spray to numb your throat. Sucking on [...] occurs, please contact your Doctor. Please call [phone] before 8pm Mon-Fri with problems, questions or concerns. If you call after 8pm or on weekends, call the Hospital at [phone] and ask to speak to the Wash Helper refrigeration tech and the steeping press operator will contact that person for you. When should you call for help? Call [phone] anytime you think you may need emergency [...] more? Visit our health information library at [email or web address] You can also view health information on [facility], your personal patient account. Log in or sign uptoday. Enter J014 in the search box to learn more about Esophageal Dilation: What to Expect at Home. Current as of: December 18, 2018Content Version: 12.4 ?? [id number] [facility]. Care instructions adapted under license by [facility]. If you have questions about a medical condition or this instruction, always ask your healthcare professional. [facility] disclaims any warranty or liability for [...] meter kit. 1 each 0 12/14/2014 Insulin [place], Disposable, (BD INSULIN PEN NEEDLE UF [...] PM EDT Office Visit Cardiology at [address] [address] Milagros Hernandez MD [facility] [place] [address] Scheduled Procedures Name Priority Associated Diagnoses Date/Ti me EGD, UPPER GI ENDOSCOPY (WRV U 2.09) Peptic stricture of esophagus documented as of this encounter Procedures Procedure Name Priority Date/Time Associated Diagnosis Comments POCT GLUCOSE Routine 04/30/2023 4:13 PM EST Up Gi Endoscopy, Ball Dil, 30Mm (06885) 04/30/2023 3:25 PM EST Peptic stricture of esophagus UPPER GI ENDOSCOPY Routine 04/30/2023 3: 14 PM EST POCT GLUCOSE Routine 04/30/2023 2:09 PM EST documented in this encounter Results * POCT Glucose (04/30/2023 4:13 PM EST) Glucose, POC 81 65 - 199 mg/dL [facility] Comment: Supplemental ranges: <140 mg/dL before meals <180 mg/dL all other times of the day Blood 04/30/2023 4:13 PM EST 04/30/2023 4:13 PM EST David Dejesus MD POINT OF CARE TEST ORDERABLES Performing Organization Address City/State/[facility] Co de Phone Number [facility] [place] [address] * UPPER GI ENDOSCOPY (04/30/2023 3:14 PM EST) [facility] UPPER GI ENDOSCOPY [facility] Endoscopy Procedure Date: 04/30/2023 3:14 PM ? Patient Name: Jennifer Irving ? Date of : 1960 ? Age: 62 ? Order #: [id number] ? Instrument Name: [id number] ? Procedure: ? Upper GI endoscopy Indications: [...] PROVATION 04/30/2023 3:14 PM EST Ana Gillespie [facility] SURGICAL ORD ERABLES PROVATION * POCT Glucose (04/30/2023 2:09 PM EST) Glucose, POC 75 65 - 199 mg/dL [facility] Comment: Supplemental ranges: <140 mg/dL before meals <180 mg/dL all other times of the day Blood 04/30/2023 2:09 PM EST 04/30/2023 2:09 PM EST David Dejesus MD POINT OF CARE TEST ORDERABLES [facility] [place] [address] documented in this encounter Visit Diagnoses Diagnosis [...] RN) documented in this encounter Care Teams Drawer In Jacquard Loom Relationship Specialty Start Date End Date Ana Gillespie APRN [address] [place] [address] PCP - General Family Medicine 02/03/19 documented as of this encounter
--- OUTSIDE RECORDS SUMMARY | 2024-02-29 19:25 | XMS_ITS | Encounter Summary ---
[place] [address] Care Team Providers Care Coal Cager Name Role Phone Ana Gillespie VAUGHN Primary Care Provider [phone] Reason for Referral * Diagnostic Test (Routine) - Closed Specialty Diagnoses / Procedures Referred By Contjovani t Referred To Contact Radiology Diagnoses Neuroleptic-induced parkinsonism Procedures IR G-Tube Check/Change DaytonFannie merritt PA [facility] DR [place] [address] [facility] [place] [address] Referral ID Status Reason Start Date Expiration Date V isits Requested Visits Authorized [id number] Closed Specialty Service Requested 04/05/2023 10/03/2024 1 1 Reason for Visit * Diagnostic Test (Routine) - Closed Specialty Diagnoses / Procedures Referred By Contjovani t Referred To Contact Radiology Diagnoses Neuroleptic-induced parkinsonism Procedures IR G-Tube Check/Change DaytonFannie merritt PA [facility] [place] [address] [facility] [place] [address] Referral ID Status Reason Start Date Expiration Date V isits Requested Visits Authorized [id number] Closed Specialty Service Requested 04/05/2023 10/03/2024 1 1 Encounter Details Date Type Department Care Team (Latest Contact Info) Description 04/06/2023 1:11 PM EST - 04/06/2023 11:59 PM EST Hospital Encounter Radiology at [facility] [place] [address] Moustapha Hart MD [facility] DR [place]ION[place] [address] Neuroleptic-induced parkinsonism Discharge Disposition: Home Social History [...] or its attachments. INTERVENTIONAL RADIOLOGY PHONE NUMBERS [phone] If you have a NON Low profile feeding tube, call with any questions or concerns. During regular office hours call: [phone]. If it is after regular office hours, weekends or holidays, please call [phone] and ask to speak to the Validation Software Facilitator beverage inspection machine tender for Interventional Radiology. If you have a low profile ???ESTRELLITA-FAM?? feeding tube, please call Dejah Stauffer RN for any issues: [phone]. Revised 02/23/19 documented in this encounter Medications [...] meter kit. 1 each 0 12/14/2014 Insulin [place], Disposable, (BD INSULIN PEN NEEDLE UF MINI) [...] : 1960 AGE: 62 y.o. Address: [address] [address] (home) Mobile: Telephone Information: Referring Provider: Fannie Conde REASON FOR VISIT: Order Questions Answers Where will study be performed? [facility] Radiology [120] Is the patient on anticoagulant / antiplatelet therapy ? No Reason for exam and clinical history: 62F with G-tube (last exchanged 03/10), 16- Fr [id number] (ESTRELLITA). G-tube locked up overnight 04/04 - [facility] pulled the g tube and the balloon [...] in this encounter H&P Notes * Fannie Codne PA - 04/05/2023 11:37 AM EST Images from the original note were not included. Interventional Radiology Focused Pre-procedure H&P: PCP: Ana Gillespie APRN Referring Provider: Fannie Conde Planned procedure: Gastrostomy tube exchange Procedure indication: G tube dislodged, durable enteric access for nutrition IR workflow: Procedure request received through Interventional Radiology eDH order queue. Order Questions Answers Where will study be performed? [facility] Radiology [120] Is the patient on anticoagulant / antiplatelet therapy ? No Reason for exam and clinical history: 62F with G-tube (last exchanged 03/10), 16- Fr [id number] (ESTRELLITA). G-tube locked up overnight 04/04 - [facility] pulled the g tube and the balloon exploded in her. They put a barba cath in History of Present Illness: Per chart review, Jennifer Irving is a 62 y.o. female presenting to Interventional Radiology to undergo G-tube check/exchange in the setting of dislodged catheter. Per report, patient presented to [facility] and they pulled the catheter and the [...] glucose meter kit. 1 each 0 Insulin [place], Disposable, (BD INSULIN PEN NEEDLE UF MINI) [...] Check/Change 11/27/2022 Hang Cooper PA [facility] INTERVENTIONL RAD IR G-TUBE CHECK/CHANGE 03/10/2023 IR G-Tube Check/Change 03/10/2023 Geronimo Chambers DO [facility] INTERVENTIONL RAD IR G-TUBE PLACEMENT 09/11/2022 IR G-Tube Placement 09/11/2022 Moustapha Hart MD [facility] INTERVENTIONL RAD IR SUTURE RELEASE 09/25/2022 IR Suture Release 09/25/2022 Yoselin Ghosh PA [facility] INTERVENTIONL RAD PERCUTANEOUS GASTROSTOMY N/A 09/11/2022 PERCUTANEOUS GASTROSTOMY performed by Aiden Flores MD at [facility] CATY PRO COLONOSCOPY, BIOPSY N/A 03/20/2016 COLONOSCOPY FLEXIBLE, WITH BX performed by David Dejesus MD at [facility] ENDOSCOPY PRO COLONOSCOPY, DIAGNOSTIC N/A 03/01/2020 COLONOSCOPY, DIAGNOSTIC performed by David Dejesus MD at [facility] ENDOSCOPY PRO ENDOSCOPIC US EXAM, ESOPH N/A 03/31/2022 UPPER EUS- ENDOSCOPIC ULTRASOUND performed by David Dejesus MD at [facility] ENDOSCOPY PRO UP GI ENDOSCOPY, BALL DIL, 30MM N/A 12/24/2022 EGD,WITH DILATION ESOPHAGUS WITH BALLOON,< 30 MM (WRVU 2.67) performed by David Dejesus MDat [facility] ENDOSCOPY PRO UP GI ENDOSCOPY, BALL DIL, 30MM N/A 01/12/2023 EGD,WITH DILATION ESOPHAGUS WITH BALLOON,< 30 MM (WRVU 2.67) performed by David Dejesus MDat [facility] ENDOSCOPY PRO UP GI ENDOSCOPY, BALL DIL, 30MM N/A 02/26/2023 EGD,WITH DILATION ESOPHAGUS WITH BALLOON,< 30 MM (WRVU 2.67) performed by David Dejesus MDat [facility] ENDOSCOPY PRO UP GI ENDOSCOPY, BALL DIL, 30MM N/A 03/16/2023 EGD,WITH DILATION ESOPHAGUS WITH BALLOON,< 30 MM (WRVU 2.67) performed by David Dejesus [facility] ENDOSCOPY PRO UP GI ENDOSCOPY, BALL DIL, 30MM N/A 03/30/2023 EGD,WITH DILATION ESOPHAGUS WITH BALLOON,< 30 MM (WRVU 2.67) performed by David Dejesus [facility] ENDOSCOPY PRO UPPER GI ENDOSCOPY, BIOPSY N/A 04/03/2014 UPPER GASTROINTESTINAL ENDOSCOPY,WITH BIOPSY SINGLE OR MULTIPLE performed by David Dejesus [facility] ENDOSCOPY PRO UPPER GI ENDOSCOPY, BIOPSY N/A 03/20/2016 EGD WITH BIOPSY performed by David Dejesus MD at [facility] ENDOSCOPY PRO UPPER GI ENDOSCOPY, BIOPSY N/A 11/22/2018 EGD WITH BIOPSY (WRVU 2.49) performed by David Dejesus MD at [facility] ENDOSCOPY PRO UPPER GI ENDOSCOPY, BIOPSY N/A 03/01/2020 UPPER GASTROINTESTINAL ENDOSCOPY,WITH BIOPSY SINGLE OR MULTIPLE (WRVU 2.49) performed by David Dejesus MD at [facility] ENDOSCOPY PRO UPPER GI ENDOSCOPY, BIOPSY N/A 09/23/2021 EGD WITH BIOPSY (WRVU 2.49) performed by David Dejesus MD at [facility] ENDOSCOPY PRO UPPER GI ENDOSCOPY, BIOPSY N/A 03/31/2022 EGD WITH BIOPSY (WRVU 2.49) performed by David Dejesus MD at [facility] ENDOSCOPY PRO UPPER GI ENDOSCOPY, BIOPSY N/A 07/03/2022 EGD WITH BIOPSY (WRVU 2.49) performed by David Dejesus MD at [facility] ENDOSCOPY PRO UPPER GI ENDOSCOPY, DIAGNOSTIC N/A 04/03/2014 EGD, UPPER GI ENDOSCOPY performed by David Dejesus MD at [facility] ENDOSCOPY PRO UPPER GI ENDOSCOPY, DIAGNOSTIC N/A 03/01/2020 EGD, UPPER GI ENDOSCOPY performed by David Dejesus MD at [facility] ENDOSCOPY PRO UPPER GI ENDOSCOPY, DIAGNOSTIC N/A 09/09/2022 EGD, UPPER GI ENDOSCOPY (WRVU 2.09) performed by Ayo Russ MD at [facility] MAIN OR Social History and Habits: Social [...] PM EDT Office Visit Cardiology at [address] [address] Milagros Hernandez MD [facility] [place] [address] Scheduled Procedures Name Priority Associated Diagnoses Date/Ti [...] procedure was performed under fluoroscopic guidance. ??A laborer adjustable steel joist fluoroscopic image was obtained. ??Contrast was injected through the barba catheter and another fluoroscopic image was obtained. ??Through the catheter, an 0.035 stiff angled glide wire was advanced. ??The catheter was removed. ??Over the wire, a new 16-Fr ouw-yqv-rsettam (ESTRELLITA) gastrostomy catheter was advanced. ??The retention balloon was inflated with 5 cc of sterile water. ??The gastrostomy was injected with contrast and repeat fluoroscopic image was obtained. ??A sterile dressing was applied. ?? Medications: 2% Lidocaine Jelly Topically Contrast: 10 cc Omnipaque 350, intra-enteric. Fluoroscopic Time: 0.2 minutes. Estimated Blood Loss: < 5 cc. Complications: ??No immediate. Findings: Placement of new 16-Fr dme-kyi-rwncqfy (ESTRELLITA) catheter positioned within the stomach. ?? [...] mLs documented in this encounter Care Teams Coal Cager Relationship Specialty Start Date End Date Ana Gillespie APRN [address] [place] [address] PCP - General Family Medicine 02/03/19 documented as of this encounter
--- OUTSIDE RECORDS SUMMARY | 2024-02-29 19:25 | XMS_ITS | Encounter Summary ---
Author Organization [facility] [place] [address] Care Team Providers Care Commercial Construction Estimator Name Role Phone Ana Gillespie APRN Primary Care Provider [phone] Encounter Details Date Type Department Care Team (Late Contact Info) Description 03/16/2023 Orders [place] [phone] David Dejesus MD [facility] [address] Peptic stricture of esophagus Social History Tobacco [...] PM EDT Office Visit Cardiology at [address] [phone] Milagros Hernandez MD [facility] [place] [address] Scheduled Orders Name Type Priority Associated Diagnoses [...] esophagus documented in this encounter Care Teams Commercial Construction Estimator Relationship Specialty Start Date End Date Ana Gillespie APRN [address] [place] [address] PCP - General Family Medicine 02/03/19 documented as of this encounter
--- OUTSIDE RECORDS SUMMARY | 2024-02-29 19:25 | XMS_ITS | Encounter Summary ---
[place] [address] Care Team Providers Care Senior Grant Writer Name Role Phone Ana Gillespie VAUGHN Primary Care Provider [phone] Reason for Referral * Diagnostic Test (Routine) - Closed Specialty Diagnoses / Procedures Referred By Esperanza rodríguez Referred To Contact Radiology Diagnoses Farrell's esophagus with high grade dysplasia Gastrostomy tube in place Procedures IR G-Tube Check/Change Steven Harding MD [facility] [place] [address] [place] [address] Referral ID Status Reason Start Date Expiration Date V isits Requested Visits Authorized [id number] Closed Specialty Service Requested 03/09/2023 09/06/2024 1 1 Reason for Visit * Diagnostic Test (Routine) - Closed Specialty Diagnoses / Procedures Referred By Esperanza rodríguez Referred To Contact Radiology Diagnoses Farrell's esophagus with high grade dysplasia Gastrostomy tube in place Procedures IR G-Tube Check/Change Steven Harding MD [facility] [place] [address] [place] [address] Referral ID Status Reason Start Date Expiration Date V isits Requested Visits Authorized [id number] Closed Specialty Service Requested 03/09/2023 09/06/2024 1 1 Encounter Details Date Type Department Care Team (Latest Contact Info) Description 03/10/2023 12:57 PM EDT - 03/10/2023 11:59 PM EDT Hospital [place] [address] Azeem Alarcon MD [facility] [place] [address] Farrell's esophagus with high grade dysplasia; Gastrostomy [...] Jordan RN - 03/10/2023 4:17 PM EDT [facility] Interventional Radiology Discharge Instructions for Feeding [...] or its attachments. INTERVENTIONAL RADIOLOGY PHONE NUMBERS [phone] If you have a NON Low profile feeding tube, call with any questions or concerns. During regular office hours call: [phone]. If it is after regular office hours, weekends or holidays, please call [phone] and ask to speak to the Aquatics Director repairer controller tester for Interventional Radiology. If you have a low profile ???ESTRELLITA-BARLOW?? feeding tube, please call Dejah Stauffer RN for any issues: [phone]. Revised 02/23/19 documented in this encounter Medications [...] meter kit. 1 each 0 12/14/2014 Insulin [place], Disposable, (BD INSULIN PEN NEEDLE UF MINI) [...] of : 1960 AGE: 62 y.o. Address: [address] [address] Phone: There are no phone numbers on file. Mobile: Telephone Information: Referring Provider: Steven Harding REASON FOR VISIT: G-tube check/exchange Order Questions Answers Where will study be performed? [facility] Radiology [120] Is the patient on [...] PM EDT Office Visit Cardiology at [address] [address] Milagros Hernandez MD [facility] [place] [address] Scheduled Procedures Name Priority Associated Diagnoses Date/Ti [...] procedure was performed under fluoroscopic guidance. ??A commissions analyst fluoroscopic image was obtained. ??Contrast was injected through the gastrostomy catheter and another fluoroscopic image was obtained. ??Through the catheter, an 0.035 Amplatz wire was advanced. ??The catheter was removed. ??Over the wire, a new 16-Fr xlf-eou-ysltfac (ESTRELLITA) gastrostomy catheter was advanced. ??The retention [...] gastric lumen. ?? Exchange for new 16-Fr kut-znr-rptppib (ESTRELLITA) catheter positioned within the stomach. ?? Impression: Successful gastrostomy catheter exchange. ??The catheter may be used immediately. Resident/Fellow: None. Attending: Dr. Geronimo Chambers. I, Dr. Chambers, was present throughout the procedure. Azeem Alarcon MD IMG IR ORDERABLES * POCT Glucose (03/10/2023 3:25 PM EDT) Glucose, POC 76 65 - 199 mg/dL [facility] Comment: Supplemental ranges: <140 mg/dL before meals <180 mg/dL all other times of the day Blood 03/10/2023 3:25 PM EDT 03/10/2023 3:25 PM EDT Azeem Alarcon MD POINT OF CARE TEST O RDERABLES [facility] [place] [address] documented in this encounter Visit Diagnoses Diagnosis [...] documented in this encounter Care Teams Senior Grant Writer Relationship Specialty Start Date End Date Ana Gillespie APRN [address] [place] [address] PCP - General Family Medicine 02/03/19 documented as of this encounter
--- OUTSIDE RECORDS SUMMARY | 2024-02-29 19:25 | XMS_ITS | Encounter Summary ---
Author Organization [facility] Address [facility] [place] [address] Care Team Providers Care Rubber Roller Grinder Operator Name Role Phone Ana Gillespie VAUGHN Primary Care Provider Encounter Details Date Type Department Care Team (Latest Contact Info) Description 03/16/2023 11:29 AM EST - 03/16/2023 2:40 PM EST Hospital Encounter Gastroenterology at [facility] [place] [address] David Dejesus MD [facility] [place] [address] Discharge Disposition: Home Social History Tobacco Use [...] the day after the procedure, use an lhqg-gxy-rexpuio spray to numb your throat. Sucking on [...] occurs, please contact your Doctor. Please call [phone] before 8pm Mon-Fri with problems, questions or concerns. If you call after 8pm or on weekends, call the Hospital at [phone] and ask to speak to the Subsea Engineer balloon seller and the disc ruler operator will contact that person for you. When should you call for help? Call [phone] anytime you think you may need emergency [...] more? Visit our health information library at [email or web address] You can also view health information on [employer], your personal patient account. Log in or sign uptoday. Enter J014 in the search box to learn more about Esophageal Dilation: What to Expect at Home. Current as of: December 18, 2018Content Version: 12.4 ?? 8883-1077 [employer]. Care instructions adapted under license by [facility]. If you have questions about a medical condition or this instruction, always ask your healthcare professional. [employer] disclaims any warranty or liability for your [...] meter kit. 1 each 0 12/14/2014 Insulin [place], Disposable, (BD INSULIN PEN NEEDLE UF MINI) [...] PM EDT Office Visit Cardiology at [address] [address] Milagros Hernandez MD [facility] [place] [address] Scheduled Procedures Name Priority Associated Diagnoses Date/Ti ok EGD, UPPER GI ENDOSCOPY (WRV U 2.09) Peptic stricture of esophagus documented as of this encounter Procedures Procedure Name Priority Date/Time Associated Diagnosis Comments Up Gi Endoscopy, Ball Dil, 30Mm (78356) 03/16/2023 1:03 PM EST Peptic stricture of esophagus UPPER GI ENDOSCOPY Routine 03/16/2023 12 :23 PM EST POCT GLUCOSE Routine 03/16/2023 12:05 PM EST documented in this encounter Results * UPPER GI ENDOSCOPY (03/16/2023 12:23 PM EST) UPPER GI ENDOSCOPY [facility] Endoscopy Procedure Date: 03/16/2023 12:23 PM ? Patient Name: Jennifer Irving ? Date of : 1960 ? Age: 62 ? Order #: [id number] ? Instrument Name: [id number] ? Procedure: ? Upper GI endoscopy Providers: [...] Glucose, POC 104 65 - 199 mg/dL [facility] Comment: Supplemental ranges: <140 mg/dL before meals <180 mg/dL all other times of the day Blood 03/16/2023 12:0 5 PM EST 03/16/2023 12:05 PM EST David Dejesus MD POINT OF CARE TEST ORDERABLES [facility] [place] [address] documented in this encounter Visit Diagnoses Not [...] RN) documented in this encounter Care Teams Rubber Roller Grinder Operator Relationship Specialty Start Date End Date Ana Gillespie APRN [address] [place] [address] PCP - General Family Medicine 02/03/19 documented as of this encounter
--- OUTSIDE RECORDS SUMMARY | 2024-02-29 19:25 | XMS_ITS | Encounter Summary ---
Author Organization [facility] [place] [address] Care Team Providers Care Process Description Writer Name Role Phone Ana Gillespie VAUGHN Primary Care Provider [phone] Encounter Details Date Type Department Care Team (Late st Contact Info) Description 03/01/2023 Tele[place] [phone] Jessica Beckman Social History Tobacco Use Types [...] Campos rtnd call. Msg sent to Urgent Rn Er to call him back to sched pt. documented in this encounter Plan of Treatment Upcoming Encounters Date Type Department Care Team (Late st Contact Info) Description 03/10/2024 4:00 PM EDT Office Visit Cardiology at [address] [phone] Milagros Hernandez MD [facility] [place] [address] Scheduled Procedures Name Priority Associated Diagnoses Date/Ti me EGD, UPPER GI ENDOSCOPY (WRV U 2.09) Peptic stricture of esophagus documented as of this encounter Visit Diagnoses Not on filedocumented in this encounter Care Teams Process Description Writer Relationship Specialty Start Date End Date Ana Gillespie APRN [address] [place] [address] PCP - General Family Medicine 02/03/19 documented as of this encounter
--- OUTSIDE RECORDS SUMMARY | 2024-02-29 19:25 | XMS_ITS | Encounter Summary ---
Author Organization [facility] [place] [address] Care Team Providers Care Weaving Teacher Name Role Phone Ana Gillespie STRATEGY ANALYST Primary Care Provider [phone] Encounter Details Date Type Department Care Team (Late st Contact Info) Description 03/01/2023 Telephone [place] [address] Parris Maravilla Social History Tobacco [...] PM EDT Office Visit Cardiology at [address] [phone] Milagros Hernandez MD [facility] [place] [address] Scheduled Procedures Name Priority Associated Diagnoses Date/Ti me EGD, UPPER GI ENDOSCOPY (WRV U 2.09) Peptic stricture of esophagus documented as of this encounter Visit Diagnoses Not on filedocumented in this encounter Care Teams Weaving Teacher Relationship Specialty Start Date End Date Ana Gillespie APRN [address] [place] [address] PCP - General Family Medicine 02/03/19 documented as of this encounter
--- OUTSIDE RECORDS SUMMARY | 2024-02-29 19:25 | XMS_ITS | Encounter Summary ---
Author Organization [facility] Address [facility] [place] [address] Care Team Providers Care Phosphatic Fertilizer Supervisor Name Role Phone Ana Gillespie VAUGHN Primary Care Provider [phone] Encounter Details Date Type Department Care Team (Late st Contact Info) Description 05/08/2023 Notes [place] [phone] Nisha Chavez MD [facility] [place] [address] Social History Tobacco Use Types Packs/Day Years [...] tube was dislodged andcare was [facility] at [facility]. A barba catheter was placed into [...] through the barba.He should be able to continuous pickling line pickler helper a compatible syringe at his closest hospital. [...] PM EDT Office Visit Cardiology at [address] [address] Milagros Hernandez MD [facility] [place] [address] Scheduled Procedures Name Priority Associated Diagnoses Date/Ti me EGD, UPPER GI ENDOSCOPY (WRV U 2.09) Peptic stricture of esophagus documented as of this encounter Visit Diagnoses Not on filedocumented in this encounter Care Teams Phosphatic Fertilizer Supervisor Relationship Specialty Start Date End Date Ana Gillespie APRN [address] [place] [address] PCP - General Family Medicine 02/03/19 documented as of this encounter
--- OUTSIDE RECORDS SUMMARY | 2024-02-29 19:25 | XMS_ITS | Encounter Summary ---
Author Organization [facility] Address [facility] [place] [address] Care Team Providers Care Injection Molding Engineer Name Role Phone Ana Gillespie VAUGHN Primary Care Provider [phone] Encounter Details Date Type Department Care Team (Latest Contact Info) Description 03/30/2023 2:12 PM EST - 03/30/2023 7:04 PM EST Hospital Encounter Gastroenterology at [facility] [place] [address] David Dejesus MD [facility] [place] [address] Discharge Disposition: Home Social History Tobacco Use [...] the day after the procedure, use an neqm-vtj-antvhws spray to numb your throat. Sucking on [...] occurs, please contact your Doctor. Please call [phone] before 8pm Mon-Fri with problems, questions or concerns. If you call after 8pm or on weekends, call the Hospital at [phone] and ask to speak to the Traffic Law Attorney systems applications programming lead and the cocoa room operator will contact that person for you. When should you call for help? Call [phone] anytime you think you may need emergency [...] After Visit Summary and more online at [email or web address] If you would like to provide feedback about your hospital experience, please call the Office of Patient and Family Relations at . If you have received this After Visit Summary in error, please immediately return it in person to the department, or notify the [facility] Privacy Office by calling toll free at between the hours of 8AM and 5PM to arrange for our retrieval of the documents at no cost to you. Content Version: 12.2 ?? 3998-5830 Book[employer]ee. Care instructions adapted under license by [facility]. If you have questions about a medical condition or this instruction, always ask your healthcare professional. [employer] disclaims any warranty or liability for your [...] the day after the procedure, use an sxzk-car-qkearmg spray to numb your throat. Sucking on [...] occurs, please contact your Doctor. Please call [phone] before 8pm Mon-Fri with problems, questions or concerns. If you call after 8pm or on weekends, call the Hospital at [phone] and ask to speak to the Traffic Law Attorney systems applications programming lead and the cocoa room operator will contact that person for you. [...] After Visit Summary and more online at [email or web address] If you would like to provide feedback about your hospital experience, please call the Office of Patient and Family Relations at . If you have received this After Visit Summary in error, please immediately return it in person to the department, or notify the [facility] Privacy Office by calling toll free at between the hours of 8AM and 5PM to arrange for our retrieval of the documents at no cost to you. Content Version: 12.2 ?? 1852-2846 [employer]. Care instructions adapted under license by [employer]. If you have questions about a medical condition or this instruction, always ask your healthcare professional. [employer] disclaims any warranty or liability for your [...] meter kit. 1 each 0 12/14/2014 Insulin [place], Disposable, (BD INSULIN PEN NEEDLE UF [...] PM EDT Office Visit Cardiology at [address] [address] Milagros Hernandez MD [facility] [place] [address] Scheduled Procedures Name Priority Associated Diagnoses Date/Ti me EGD, UPPER GI ENDOSCOPY (WRV U 2.09) Peptic stricture of esophagus documented as of this encounter Procedures Procedure Name Priority Date/Time Associated Diagnosis Comments Up Gi Endoscopy, Ball Dil, 30Mm (88541) 03/30/2023 6:02 PM EST Peptic stricture of esophagus UPPER GI ENDOSCOPY Routine 03/30/2023 5: 58 PM EST documented in this encounter Results * UPPER GI ENDOSCOPY (03/30/2023 5:58 PM EST) UPPER GI ENDOSCOPY [facility] Endoscopy Procedure Date: 03/30/2023 5:58 PM ? Patient Name: Jennifer Irving ? Date of : 1960 ? Age: 62 ? Order #: [id number] ? Instrument Name: [id number]- [id number] ? Procedure: ? Upper GI endoscopy Indications: ? Stenosis of the esophagus Providers: ? David Dejesus MD, Jennifer E. ? Theodora Garibay, ? Pc Support Specialist Referring MD: ?Ana Keith: ? Propofol per [...] CRNA) documented in this encounter Care Teams Injection Molding Engineer Relationship Specialty Start Date End Date Ana Gillespie APRN [address] [place] [address] PCP - General Family Medicine 02/03/19 documented as of this encounter
--- OUTSIDE RECORDS SUMMARY | 2024-02-29 19:25 | XMS_ITS | Encounter Summary ---
Author Organization [facility] Address [facility] [place] [address] Care Team Providers Care Double End Sewer Name Role Phone Ana Gillespie VAUGHN Primary Care Provider [phone] Encounter Details Date Type Department Care Team (Late st Contact Info) Description 04/19/2023 Telephone [place] [address] Juice Maxwell RN Social History [...] is requesting a call back to reschedule. [phone] Forwarded to scheduling. documented in this encounter Plan of Treatment Upcoming Encounters Date Type Department Care Team (Late st Contact Info) Description 03/10/2024 4:00 PM EDT Office Visit Cardiology at [address] [phone] Milagros Hernandez MD [facility] [place] [address] Scheduled Procedures Name Priority Associated Diagnoses Date/Ti me EGD, UPPER GI ENDOSCOPY (WRV U 2.09) Peptic stricture of esophagus documented as of this encounter Visit Diagnoses Not on filedocumented in this encounter Care Teams Double End Sewer Relationship Specialty Start Date End Date Ana Gillespie APRN [address] [place] [address] PCP - General Family Medicine 02/03/19 documented as of this encounter
--- OUTSIDE RECORDS SUMMARY | 2024-02-29 19:25 | XMS_ITS | Encounter Summary ---
Author Organization [facility] Address [facility] [place] [address] Care Team Providers Care Filter Tip Catcher Name Role Phone Ana Gillespie VAUGHN Primary Care Provider [phone] Encounter Details Date Type Department Care Team (Late st Contact Info) Description 03/16/2023 1:00 PM EST - 03/16/2023 1:30 PM EST Surgery Gastroenterology at [facility] [place] [address] David Dejesus MD [facility] [place] [address] EGD,WITH DILATION ESOPHAGUS WITH BALLOON,< 30 MM [...] the day after the procedure, use an hzef-mtc-bftlfor spray to numb your throat. Sucking on [...] occurs, please contact your Doctor. Please call [phone] before 8pm Mon-Fri with problems, questions or concerns. If you call after 8pm or on weekends, call the Hospital at [phone] and ask to speak to the Branch Controller fire prevention captain and the welding machine operator gas metal arc will contact that person for you. When should you call for help? Call [phone] anytime you think you may need emergency [...] more? Visit our health information library at [email or web address] You can also view health information on [employer], your personal patient account. Log in or sign uptoday. Enter J014 in the search box to learn more about Esophageal Dilation: What to Expect at Home. Current as of: December 18, 2018Content Version: 12.4 ?? 8630-0049 [employer]. Care instructions adapted under license by [facility]. If you have questions about a medical condition or this instruction, always ask your healthcare professional. [employer] disclaims any warranty or liability for your [...] meter kit. 1 each 0 12/14/2014 Insulin [place], Disposable, (BD INSULIN PEN NEEDLE UF MINI) [...] PM EDT Office Visit Cardiology at [address] [address] Milagros Hernandez MD [facility] [place] [address] Scheduled Procedures Name Priority Associated Diagnoses Date/Ti oh EGD, UPPER GI ENDOSCOPY (WRV U 2.09) Peptic stricture of esophagus documented as of this encounter Procedures Procedure Name Priority Date/Time Associated Diagnosis Comments Up Gi Endoscopy, Ball Dil, 30Mm ([id number]) 03/16/2023 1:03 PM EST Peptic stricture of esophagus UPPER GI ENDOSCOPY Routine 03/16/2023 12 :23 PM EST POCT GLUCOSE Routine 03/16/2023 12:05 PM EST documented in this encounter Results * UPPER GI ENDOSCOPY (03/16/2023 12:23 PM EST) Pathologist [facility] UPPER GI ENDOSCOPY [facility] Endoscopy Procedure Date: 03/16/2023 12:23 PM ? Patient Name: Jennifer Irving ? Date of : 1960 ? Age: 62 ? Order #: [id number] ? Instrument Name: [id number]- [id number] ? Procedure: ? Upper GI endoscopy Providers: [...] Glucose, POC 104 65 - 199 mg/dL [facility] Comment: Supplemental ranges: <140 mg/dL before meals <180 mg/dL all other times of the day Blood 03/16/2023 12:0 5 PM EST 03/16/2023 12:05 PM EST David Dejesus MD POINT OF CARE TEST ORDERABLES Performing Organization Address [facility]/ZIP Co de Phone Number [facility] [place] [address] documented in this encounter Visit Diagnoses Diagnosis [...] RN) documented in this encounter Care Teams Filter Tip Catcher Relationship Specialty Start Date End Date Ana Gillespie APRN [address] [place] [address] PCP - General Family Medicine 02/03/19 documented as of this encounter
--- OUTSIDE RECORDS SUMMARY | 2024-02-29 19:25 | XMS_ITS | Encounter Summary ---
Author Organization [facility] Address [facility] [place] [address] Care Team Providers Care Flight Attendant/Inflight Supervisor Name Role Phone Ana Gillespie VAUGHN Primary Care Provider [phone] Encounter Details Date Type Department Care Team (Late st Contact Info) Description 03/30/2023 4:30 PM EST - 03/30/2023 5:00 PM EST Surgery Gastroenterology at [facility] [place] [address] David Dejesus MD [facility] [place] [address] EGD,WITH DILATION ESOPHAGUS WITH BALLOON,< 30 MM [...] the day after the procedure, use an jcgc-fyk-oqlswmr spray to numb your throat. Sucking on [...] occurs, please contact your Doctor. Please call [phone] before 8pm Mon-Fri with problems, questions or concerns. If you call after 8pm or on weekends, call the Hospital at [phone] and ask to speak to the Electrifier Operator applications programmer and the mixer lever operator will contact that person for you. [...] learn more? [facility] View your After Visit Summary and more online at [email or web address] If you would like to provide feedback about your hospital experience, please call the Office of Patient and Family Relations at . If you have received this After Visit Summary in error, please immediately return it in person to the department, or notify the [facility] Privacy Office by calling toll free at between the hours of 8AM and 5PM to arrange for our retrieval of the documents at no cost to you. Content Version: 12.2 ?? 4920-3707 [employer]. Care instructions adapted under license by [facility]. If you have questions about a medical condition or this instruction, always ask your healthcare professional. [employer], [employer] disclaims any warranty or liability for your [...] the day after the procedure, use an dasl-rju-diikigu spray to numb your throat. Sucking on [...] occurs, please contact your Doctor. Please call [phone] before 8pm Mon-Fri with problems, questions or concerns. If you call after 8pm or on weekends, call the Hospital at [phone] and ask to speak to the Electrifier Operator applications programmer and the mixer lever operator will contact that person for you. When should you call for help? Call 491 anytime you think you may need emergency [...] learn more? [facility] View your After Visit Summary and more online at [email or web address] If you would like to provide feedback about your hospital experience, please call the Office of Patient and Family Relations at . If you have received this After Visit Summary in error, please immediately return it in person to the department, or notify the [facility] Privacy Office by calling toll free at between the hours of 8AM and 5PM to arrange for our retrieval of the documents at no cost to you. Content Version: 12.2 ?? 6660-4230 [employer]. Care instructions adapted under license by [facility]. If you have questions about a medical condition or this instruction, always ask your healthcare professional. [employer] disclaims any warranty or liability for your [...] meter kit. 1 each 0 12/14/2014 Insulin [place], Disposable, (BD INSULIN PEN NEEDLE UF MINI) [...] PM EDT Office Visit Cardiology at [address] [address] Milagros Hernandez MD [facility] [place] [address] Scheduled Procedures Name Priority Associated Diagnoses Date/Ti in EGD, UPPER GI ENDOSCOPY (WRV U 2.09) Peptic stricture of esophagus documented as of this encounter Procedures Procedure Name Priority Date/Time Associated Diagnosis Comments Up Gi Endoscopy, Ball Dil, 30Mm (58578) 03/30/2023 6:02 PM EST Peptic stricture of esophagus UPPER GI ENDOSCOPY Routine 03/30/2023 5: 58 PM EST documented in this encounter Results * UPPER GI ENDOSCOPY (03/30/2023 5:58 PM EST) UPPER GI ENDOSCOPY [facility] Endoscopy Procedure Date: 03/30/2023 5:58 PM ? Patient Name: Jennifer Irving ? Date of : 1960 ? Age: 62 ? Order #: [id number] ? Instrument Name: [id number] ? Procedure: ? Upper GI endoscopy Indications: ? Stenosis of the esophagus Providers: ? David Dejesus MD, Jennifer Howell ? Theodora Garibay, ? Snuff Drier Referring MD: ?Ana Keith: ? Propofol per [...] PROVATION 03/30/2023 5:58 PM EST Ana Gillespie [facility] GENERAL SURGICAL ORD ERABLES PROVATION documented in [...] CRNA) documented in this encounter Care Teams Flight Attendant/Inflight Supervisor Relationship Specialty Start Date End Date Ana Gilelspie APRN [address] [place] [address] PCP - General Family Medicine 02/03/19 documented as of this encounter
--- OUTSIDE RECORDS SUMMARY | 2024-02-29 19:25 | XMS_ITS | Encounter Summary ---
Author Organization [place] [address] Care Team Providers Care Community Relations Coordinator Name Role Phone Ana Gillespie APRN Primary Care Provider [phone] Encounter Details Date Type Department Care Team [...] PM EDT Office Visit Cardiology at [address] [address] [facility] [place] [address] Scheduled Procedures Name Priority Associated Diagnoses Date/Ti me EGD, UPPER GI ENDOSCOPY (WRV U 2.09) Peptic stricture of esophagus documented as of this encounter Visit Diagnoses Not on filedocumented in this encounter Care Teams Community Relations Coordinator Relationship Specialty Start Date End Date Ana Gillespie APRN [address] [place] [address] PCP - General Family Medicine 02/03/19 documented as of this encounter
--- OUTSIDE RECORDS SUMMARY | 2024-02-29 19:25 | XMS_ITS | Encounter Summary ---
Author Organization [facility] Address [facility] [place] [address] Care Team Providers Care Government Relations Director Name Role Phone Ana Gillespie APRN Primary Care Provider [phone] Encounter Details Date Type Department Care Team (Late st Contact Info) Description 03/09/2023 [place] [phone] Masha Adkins MD [facility] [place] [address] Social History Tobacco Use Types Packs/Day Years [...] agreement with plan. Masha Teran) Lucille MARTE Proof Machine Operator PGY4 documented in this encounter Plan of Treatment Upcoming Encounters Date Type Department Care Team (Late st Contact Info) Description 03/10/2024 4:00 PM EDT Office Visit Cardiology at [address] [address] Milagros Hernandez MD [facility] [place] [address] Scheduled Orders Name Type Priority Associated Diagnoses [...] esophagus documented in this encounter Care Teams Government Relations Director Relationship Specialty Start Date End Date Ana Gillespie APRN [address] [place] [address] PCP - General Family Medicine 02/03/19 documented as of this encounter
--- OUTSIDE RECORDS SUMMARY | 2024-02-29 19:25 | XMS_ITS | Encounter Summary ---
Author Organization [facility] [place] [address] Care Team Providers Care Maintainer Operator Name Role Phone Ana Gillespie APRN Primary Care Provider [phone] Encounter Details Date Type Department Care Team [...] PM EDT Office Visit Cardiology at [address] [address] Milagros Hernandez MD [facility] [place] [address] Scheduled Procedures Name Priority Associated Diagnoses Date/Ti me EGD, UPPER GI ENDOSCOPY (WRV U 2.09) Peptic stricture of esophagus documented as of this encounter Visit Diagnoses Not on filedocumented in this encounter Care Teams Maintainer Operator Relationship Specialty Start Date End Date Ana Gillespie APRN [address] [place] [address] PCP - General Family Medicine 02/03/19 documented as of this encounter
--- OUTSIDE RECORDS SUMMARY | 2024-02-29 19:25 | XMS_ITS | Encounter Summary ---
Author Organization [facility] Marly petersen [place] [id number] Care Team Providers Care Steel Loader Name Role Phone Ana Gillespie APRN Primary Care Provider [phone] Encounter Details Date Type Department Care Team (Late st Contact Info) Description 04/30/2023 3:26 PM EST Anesthesia [place] [phone] Leigh Carter MD [facility] DR ANESTHESIOLOGY DEPT [place] [phone] Cristine Gomez CRNA [facility] [place] [address] Anesthesia Record Procedure Summary Procedure Name Responsible [...] questions and acknowledgement of understanding Susy Juárez INSPECTOR ROUGH CASTINGS 1550 Procedure Stop 1555 Break/Relief Out 1557 [...] metacarpal vein (top of hand), right; audrey g; 0; 04/30/23; 1631 04/30/23 1414 by Phyllis [...] Procedure Summary Date: 04/30/23 Room / Location: [facility] ENDO 2 / [facility] ENDOSCOPY Anesthesia Start: 1526 Anesthesia Stop: 1600 Procedure: EGD,WITH DILATION ESOPHAGUS WITH BALLOON,< 30 MM (WRVU 2.67) (Trunk) Diagnosis: Peptic stricture of esophagus (peptic striture - schedule in two weeks) Surgeons: David Dejesus MD Responsible Provider: Leigh Carter MD Anesthesia Type: general ASA Status: 3 All Anesthesia Providers: Anesthesiologist: Leigh Carter MD INSPECTOR ROUGH CASTINGS: Tapan Simpson CRNA Vitals Value Taken Time BP 102/57 04/30/23 1620 Temp Pulse Resp SpO2 96 % 04/30/23 1623 Pain Level 0 04/30/23 1620 Vitals shown include unfiled device data. Patient Location: PACU/[facility] Level of Consciousness: Awake and Alert [...] IR G-Tube Check/Change 11/27/2022 Hang Cooper PA [facility] INTERVENTIONL RAD ??? IR G-TUBE CHECK/CHANGE 03/10/2023 IR G-Tube Check/Change 03/10/2023 Geronimo Chambers, [facility] INTERVENTIONL RAD ??? IR G-TUBE CHECK/CHANGE 04/06/2023 IR G-Tube Check/Change 04/06/2023 Gavin Carrillo MD [facility] INTERVENTIONL RAD ??? IR G-TUBE PLACEMENT 09/11/2022 IR G-Tube Placement 09/11/2022 Moustapha Hart MD [facility] INTERVENTIONL RAD ??? IR SUTURE RELEASE 09/25/2022 IR Suture Release 09/25/2022 Yoselin Ghosh PA [facility] INTERVENTIONL RAD ??? PERCUTANEOUS GASTROSTOMY N/A 09/11/2022 PERCUTANEOUS GASTROSTOMY performed by Aiden Flores MD at [facility] CATY ??? PRO COLONOSCOPY, BIOPSY N/A 03/20/2016 COLONOSCOPY FLEXIBLE, WITH BX performed by David Dejesus MD at [facility] ENDOSCOPY ??? PRO COLONOSCOPY, DIAGNOSTIC N/A 03/01/2020 COLONOSCOPY, DIAGNOSTIC performed by David Dejesus MD at [facility] ENDOSCOPY ??? PRO ENDOSCOPIC US EXAM, ESOPH N/A 03/31/2022 UPPER EUS- ENDOSCOPIC ULTRASOUND performed by David Dejesus MD at [facility] ENDOSCOPY ??? PRO UP GI ENDOSCOPY, BALL DIL, 30MM N/A 12/24/2022 EGD,WITH DILATION ESOPHAGUS WITH BALLOON,< 30 MM (WRVU 2.67) performed by David Dejesus MDat [facility] ENDOSCOPY ??? PRO UP GI ENDOSCOPY, BALL DIL, 30MM N/A 01/12/2023 EGD,WITH DILATION ESOPHAGUS WITH BALLOON,< 30 MM (WRVU 2.67) performed by David Dejesus [facility] ENDOSCOPY ??? PRO UP GI ENDOSCOPY, BALL DIL, 30MM N/A 02/26/2023 EGD,WITH DILATION ESOPHAGUS WITH BALLOON,< 30 MM (WRVU 2.67) performed by David Dejesus [facility] ENDOSCOPY ??? PRO UP GI ENDOSCOPY, BALL DIL, 30MM N/A 03/16/2023 EGD,WITH DILATION ESOPHAGUS WITH BALLOON,< 30 MM (WRVU 2.67) performed by David Dejesus [facility] ENDOSCOPY ??? PRO UP GI ENDOSCOPY, BALL DIL, 30MM N/A 03/30/2023 EGD,WITH DILATION ESOPHAGUS WITH BALLOON,< 30 MM (WRVU 2.67) performed by David Dejesus [facility] ENDOSCOPY ??? PRO UPPER GI ENDOSCOPY, BIOPSY N/A 04/03/2014 UPPER GASTROINTESTINAL ENDOSCOPY,WITH BIOPSY SINGLE OR MULTIPLE performed by David Dejesus [facility] ENDOSCOPY ??? PRO UPPER GI ENDOSCOPY, BIOPSY N/A 03/20/2016 EGD WITH BIOPSY performed by David Dejesus MD at [facility] ENDOSCOPY ??? PRO UPPER GI ENDOSCOPY, BIOPSY N/A 11/22/2018 EGD WITH BIOPSY (WRVU 2.49) performed by David Dejesus MD at [facility] ENDOSCOPY ??? PRO UPPER GI ENDOSCOPY, BIOPSY N/A 03/01/2020 UPPER GASTROINTESTINAL ENDOSCOPY,WITH BIOPSY SINGLE OR MULTIPLE (WRVU 2.49) performed by David Dejesus MD at [facility] ENDOSCOPY ??? PRO UPPER GI ENDOSCOPY, BIOPSY N/A 09/23/2021 EGD WITH BIOPSY (WRVU 2.49) performed by David Dejesus MD at [facility] ENDOSCOPY ??? PRO UPPER GI ENDOSCOPY, BIOPSY N/A 03/31/2022 EGD WITH BIOPSY (WRVU 2.49) performed by David Dejesus MD at [facility] ENDOSCOPY ??? PRO UPPER GI ENDOSCOPY, BIOPSY N/A 07/03/2022 EGD WITH BIOPSY (WRVU 2.49) performed by David Dejesus MD at [facility] ENDOSCOPY ??? PRO UPPER GI ENDOSCOPY, DIAGNOSTIC N/A 04/03/2014 EGD, UPPER GI ENDOSCOPY performed by David Dejesus MD at [facility] ENDOSCOPY ??? PRO UPPER GI ENDOSCOPY, DIAGNOSTIC N/A 03/01/2020 EGD, UPPER GI ENDOSCOPY performed by David Dejesus MD at [facility] ENDOSCOPY ??? PRO UPPER GI ENDOSCOPY, DIAGNOSTIC N/A 09/09/2022 EGD, UPPER GI ENDOSCOPY (WRVU 2.09) performed by Ayo Russ MD at [facility] MAIN OR Social History Tobacco Use [...] risks discussed with patient. Plan discussed with INSPECTOR ROUGH CASTINGS and attending. Anesthesia Screening documented in this encounter Plan of Treatment Upcoming Encounters Date Type Department Care Team (Late st Contact Info) Description 03/10/2024 4:00 PM EDT Office Visit Cardiology at [address] [place] [address] Milagros Hernandez MD [facility] [place] [address] Scheduled Procedures Name Priority Associated Diagnoses Date/Ti [...] mg documented in this encounter Care Teams Steel Loader Relationship Specialty Start Date End Date Ana Gillespie APRN [address] [place] [address] PCP - General Family Medicine 02/03/19 documented as of this encounter
--- OUTSIDE RECORDS SUMMARY | 2024-02-29 19:25 | XMS_ITS | Encounter Summary ---
Author Organization [facility] Address [facility] [place] [address] Care Team Providers Care Brusher Tender Name Role Phone Ana Gillespie APRN Primary Care Provider [phone] Encounter Details Date Type Department Care Team (Late st Contact Info) Description 02/26/2023 2:00 PM EDT - 02/26/2023 2:30 PM EDT Surgery [place] [phone] David Dejesus MD [facility] [place] [address] EGD,WITH DILATION ESOPHAGUS WITH BALLOON,< 30 MM [...] the day after the procedure, use an rdzf-hcf-yrufkdt spray to numb your throat. Sucking on [...] occurs, please contact your Doctor. Please call [phone] before 8pm Mon-Fri with problems, questions or concerns. If you call after 8pm or on weekends, call the Hospital at [phone] and ask to speak to the Fuel Pilot Engineer menswear salesperson and the cut to length operator will contact that person for you. When should you call for help? Call [phone] anytime you think you may need emergency [...] any problems. Where can you learn more? [facility] View your After Visit Summary and more online at [email or web address] If you would like to provide feedback about your hospital experience, please call the Office of Patient and Family Relations at . If you have received this After Visit Summary in error, please immediately return it in person to the department, or notify the [facility] Privacy Office by calling toll free at between the hours of 8AM and 5PM to arrange for our retrieval of the documents at no cost to you. Content Version: 12.2 ?? 4922-2518 [employer]. Care instructions adapted under license by [facility]. If you have questions about a medical condition or this instruction, always ask your healthcare professional. [employer] disclaims any warranty or liability for your [...] meter kit. 1 each 0 12/14/2014 Insulin [place], Disposable, (BD INSULIN PEN NEEDLE UF [...] glucose meter kit. 1 each 0 Insulin [place], Disposable, (BD INSULIN PEN NEEDLE UF [...] PM EDT Office Visit Cardiology at [address] [address] Milagros Hernandez MD [facility] [place] [address] Scheduled Procedures Name Priority Associated Diagnoses Date/Ti me EGD, UPPER GI ENDOSCOPY (WRV U 2.09) Peptic stricture of esophagus documented as of this encounter Procedures Procedure Name Priority Date/Time Associated Diagnosis Comments Up Gi Endoscopy, Ball Dil, 30Mm (31016) 02/26/2023 2:09 PM EDT Peptic stricture of esophagus POCT GLUCOSE Routine 02/26/2023 1:28 PM EDT documented in this encounter Results * POCT Glucose (02/26/2023 1:28 PM EDT) Glucose, POC 71 65 - 199 mg/dL [facility] Comment: Supplemental ranges: <140 mg/dL before meals <180 mg/dL all other times of the day Blood 02/26/2023 1:28 PM EDT 02/26/2023 1:28 PM EDT David Dejesus MD POINT OF CARE TEST ORDERABLES [facility] [place] [place] [address] documented in this encounter Visit Diagnoses Diagnosis [...] RN) documented in this encounter Care Teams Brusher Tender Relationship Specialty Start Date End Date Ana Gillespie APRN [address] [place] [address] PCP - General Family Medicine 02/03/19 documented as of this encounter
--- OUTSIDE RECORDS SUMMARY | 2024-02-29 19:25 | XMS_ITS | Encounter Summary ---
Author Organization [facility] [place] [address] Care Team Providers Care Psychiatric Cns Name Role Phone Ana Gillespie APRN Primary Care Provider Encounter Details Date Type Department Care Team (Late Contact Info) Description 04/30/2023 Orders [place] [phone] David Dejesus MD [facility] [place] [address] Peptic stricture of esophagus Social History Tobacco [...] PM EDT Office Visit Cardiology at [address] [phone] Milagros Hernandez MD [facility] [place] [address] Scheduled Orders Name Type Priority Associated Diagnoses [...] esophagus documented in this encounter Care Teams Psychiatric Cns Relationship Specialty Start Date End Date Ana Gillespie APRN [address] [place] [address] PCP - General Family Medicine 02/03/19 documented as of this encounter
--- OUTSIDE RECORDS SUMMARY | 2024-02-29 19:25 | XMS_ITS | Encounter Summary ---
Author Organization [facility] [place] [address] Care Team Providers Care Garbage Depot Worker Name Role Phone Ana Gillespie APRN Primary Care Provider [phone] Reason for Visit * Reason Onset Date Comments Questions 03/02/2023 Med changes at [facility] visit Encounter Details Date Type Department Care Team (Late st Contact Info) Description 03/02/2023 Telephone Cardiology at [address] [phone] Chela Walsh RN Questions (Med changes at [...] the hospital over the past weekend at [facility] for pneumonia. While there they [...] PM EDT Office Visit Cardiology at [address] [address] Milagros Hernandez MD [facility] [place] [address] Scheduled Procedures Name Priority Associated Diagnoses Date/Ti ks EGD, UPPER GI ENDOSCOPY (WRV U 2.09) Peptic stricture of esophagus documented as of this encounter Visit Diagnoses Not on filedocumented in this encounter Care Teams Garbage Depot Worker Relationship Specialty Start Date End Date Ana Gillespie APRN [address] [place] [address] PCP - General Family Medicine 02/03/19 documented as of this encounter
--- OUTSIDE RECORDS SUMMARY | 2024-02-29 19:25 | XMS_ITS | Encounter Summary ---
Author Organization [facility] [place] [address] Care Team Providers Care Dry Kiln Burner Name Role Phone Ana Gillespie APRN Primary Care Provider [phone] Encounter Details Date Type Department Care Team (Late Contact Info) Description 02/26/2023 Orders [place] [phone] David Dejesus MD [facility] [place] [address] Peptic stricture of esophagus Social History Tobacco [...] PM EDT Office Visit Cardiology at [address] [phone] Milagros Hernandez MD [facility] [place] [address] Scheduled Orders Name Type Priority Associated Diagnoses [...] esophagus documented in this encounter Care Teams Dry Kiln Burner Relationship Specialty Start Date End Date Ana Gillespie APRN [address] [place] [address] PCP - General Family Medicine 02/03/19 documented as of this encounter
--- OUTSIDE RECORDS SUMMARY | 2024-02-29 19:25 | XMS_ITS | Encounter Summary ---
Author Organization [facility] [place] [address] Care Team Providers Care Human Services Program Specialist Name Role Phone Ana Gillespie APRN Primary Care Provider [phone] Encounter Details Date Type Department Care Team (Late st Contact Info) Description 03/16/2023 1:02 PM EST Anesthesia Event [place] [phone] Rio Aceves MD [facility] [place] [address] Beti Cisneros CRNA [facility] [place] [address] Anesthesia Record Procedure Summary Procedure Name Responsible [...] by Sergey Jordan RN PIV 03/16/23; 1221; arlu-hls-laiyyc catheter system; 22 gauge; metacarpal vein (top [...] Beti Cisneros CRNA 03/16/23 1335 by Beti Cisenros CRNA documented in this encounter Social History [...] Procedure Summary Date: 03/16/23 Room / Location: [facility] ENDO 2 / [facility] ENDOSCOPY Anesthesia Start: 1302 Anesthesia Stop: 1343 Procedure: EGD,WITH DILATION ESOPHAGUS WITH BALLOON,< 30 MM (WRVU 2.67) (Trunk) Diagnosis: Peptic stricture of esophagus (stricture dilation) Surgeons: David Dejesus MD Responsible Provider: Roi Aceves MD Anesthesia Type: general ASA Status: 3 All Anesthesia Providers: Anesthesiologist: Rio Aceves MD SENIOR PRODUCTION SUPERVISOR: Beti Cisneros CRNA Vitals Value Taken Time BP 110/60 03/16/23 1420 Temp Pulse Resp 18 03/16/23 1420 SpO2 96 % 03/16/23 1423 Pain Level 0 03/16/23 1420 Vitals shown include unfiled device data. Patient Location: PACU/[facility] Level of Consciousness: Awake and Alert [...] IR G-Tube Check/Change 11/27/2022 Hang Cooper PA [facility] INTERVENTIONL RAD ??? IR G-TUBE CHECK/CHANGE 03/10/2023 IR G-Tube Check/Change 03/10/2023 Geronimo Chambers, DO [facility] INTERVENTIONL RAD ??? IR G-TUBE PLACEMENT 09/11/2022 IR G-Tube Placement 09/11/2022 Moustapha Hart MD [facility] INTERVENTIONL RAD ??? IR SUTURE RELEASE 09/25/2022 IR Suture Release 09/25/2022 Yoslein Ghosh PA [facility] INTERVENTIONL RAD ??? PERCUTANEOUS GASTROSTOMY N/A 09/11/2022 PERCUTANEOUS GASTROSTOMY performed by Aiden Flores MD at [facility] CATY ??? PRO COLONOSCOPY, BIOPSY N/A 03/20/2016 COLONOSCOPY FLEXIBLE, WITH BX performed by David Dejesus MD at [facility] ENDOSCOPY ??? PRO COLONOSCOPY, DIAGNOSTIC N/A 03/01/2020 COLONOSCOPY, DIAGNOSTIC performed by David Dejesus MD at [facility] ENDOSCOPY ??? PRO ENDOSCOPIC US EXAM, ESOPH N/A 03/31/2022 UPPER EUS- ENDOSCOPIC ULTRASOUND performed by David Dejesus MD at [facility] ENDOSCOPY ??? PRO UP GI ENDOSCOPY, BALL DIL, 30MM N/A 12/24/2022 EGD,WITH DILATION ESOPHAGUS WITH BALLOON,< 30 MM (WRVU 2.67) performed by David Dejesus [facility] ENDOSCOPY ??? PRO UP GI ENDOSCOPY, BALL DIL, 30MM N/A 01/12/2023 EGD,WITH DILATION ESOPHAGUS WITH BALLOON,< 30 MM (WRVU 2.67) performed by David Dejesus [facility] ENDOSCOPY ??? PRO UP GI ENDOSCOPY, BALL DIL, 30MM N/A 02/26/2023 EGD,WITH DILATION ESOPHAGUS WITH BALLOON,< 30 MM (WRVU 2.67) performed by David Dejesus [facility] ENDOSCOPY ??? PRO UPPER GI ENDOSCOPY, BIOPSY N/A 04/03/2014 UPPER GASTROINTESTINAL ENDOSCOPY,WITH BIOPSY SINGLE OR MULTIPLE performed by David Dejesus [facility] ENDOSCOPY ??? PRO UPPER GI ENDOSCOPY, BIOPSY N/A 03/20/2016 EGD WITH BIOPSY performed by David Dejesus MD at [facility] ENDOSCOPY ??? PRO UPPER GI ENDOSCOPY, BIOPSY N/A 11/22/2018 EGD WITH BIOPSY (WRVU 2.49) performed by David Dejesus MD at [facility] ENDOSCOPY ??? PRO UPPER GI ENDOSCOPY, BIOPSY N/A 03/01/2020 UPPER GASTROINTESTINAL ENDOSCOPY,WITH BIOPSY SINGLE OR MULTIPLE (WRVU 2.49) performed by David Dejesus MD at [facility] ENDOSCOPY ??? PRO UPPER GI ENDOSCOPY, BIOPSY N/A 09/23/2021 EGD WITH BIOPSY (WRVU 2.49) performed by David Dejesus MD at [facility] ENDOSCOPY ??? PRO UPPER GI ENDOSCOPY, BIOPSY N/A 03/31/2022 EGD WITH BIOPSY (WRVU 2.49) performed by David Dejesus MD at [facility] ENDOSCOPY ??? PRO UPPER GI ENDOSCOPY, BIOPSY N/A 07/03/2022 EGD WITH BIOPSY (WRVU 2.49) performed by David Dejesus MD at [facility] ENDOSCOPY ??? PRO UPPER GI ENDOSCOPY, DIAGNOSTIC N/A 04/03/2014 EGD, UPPER GI ENDOSCOPY performed by David Dejesus MD at [facility] ENDOSCOPY ??? PRO UPPER GI ENDOSCOPY, DIAGNOSTIC N/A 03/01/2020 EGD, UPPER GI ENDOSCOPY performed by David Dejesus MD at [facility] ENDOSCOPY ??? PRO UPPER GI ENDOSCOPY, DIAGNOSTIC N/A 09/09/2022 EGD, UPPER GI ENDOSCOPY (WRVU 2.09) performed by Ayo Russ MD at [facility] MAIN OR Social History Tobacco Use [...] BMI: IBW: Last edited 03/16/23 1149 by RH Airway Assessment: Mallampati: II TM distance: >3 [...] with patient and spouse. Plan discussed with SENIOR PRODUCTION SUPERVISOR and attending. Anesthesia Screening documented in this encounter Plan of Treatment Upcoming Encounters Date Type Department Care Team (Late st Contact Info) Description 03/10/2024 4:00 PM EDT Office Visit Cardiology at [address] [address] Milagros Hernandez MD [facility] [place] [address] Scheduled Procedures Name Priority Associated Diagnoses Date/Ti [...] mg documented in this encounter Care Teams Human Services Program Specialist Relationship Specialty Start Date End Date Ana Gillespie APRN [address] [place] [address] PCP - General Family Medicine 02/03/19 documented as of this encounter
--- OUTSIDE RECORDS SUMMARY | 2024-02-29 19:25 | XMS_ITS | Encounter Summary ---
Author Organization [facility] [place] [address] Care Team Providers Care Cook Ice Cream Name Role Phone Ana Gillespie APRN Primary Care Provider [phone] Encounter Details Date Type Department Care Team (Casimiro shetty Contact Info) Description 04/15/2023 Telephone Cardiology at [address] [phone] Chela Walsh, RN Social History Tobacco Use [...] PM EDT Office Visit Cardiology at [address] [address] Milagros Hernandez MD [facility] [place] [address] Scheduled Procedures Name Priority Associated Diagnoses Date/Ti me EGD, UPPER GI ENDOSCOPY (WRV U 2.09) Peptic stricture of esophagus documented as of this encounter Visit Diagnoses Not on filedocumented in this encounter Care Teams Cook Ice Cream Relationship Specialty Start Date End Date Ana Gillespie APRN [address] [place] [address] PCP - General Family Medicine 02/03/19 documented as of this encounter
--- OUTSIDE RECORDS SUMMARY | 2024-02-29 19:26 | XMS_ITS | Encounter Summary ---
Author Organization [facility] [place] [address] Care Team Providers Care Political Worker Name Role Phone Ana Gillespie VAUGHN Primary Care Provider [phone] Reason for Visit * Reason Onset Date Comments Diabetes 09/29/2022 Encounter Details Date Type Department Care Team (Late st Contact Info) Description 09/29/2022 Telephone [place] [phone] Elsie Erickson APRN [facility] [place] [address] Diabetes Social History Tobacco Use Types Packs/Day [...] PM EDT Office Visit Cardiology at [address] [phone] Milagros Hernandez MD [facility] [place] [address] Scheduled Procedures Name Priority Associated Diagnoses Date/Ti me EGD, UPPER GI ENDOSCOPY (WRV U 2.09) Peptic stricture of esophagus documented as of this encounter Visit Diagnoses Not on filedocumented in this encounter Care Teams Political Worker Relationship Specialty Start Date End Date Ana Gillespie APRN [address] [place] [address] PCP - General Family Medicine 02/03/19 documented as of this encounter
--- OUTSIDE RECORDS SUMMARY | 2024-02-29 19:26 | XMS_ITS | Encounter Summary ---
Author Organization [facility] Address [facility] [place] [address] Care Team Providers Care Manager Chemistry Name Role Phone Ana Gillespie APRN Primary Care Provider [phone] Encounter Details Date Type Department Care Team (Late st Contact Info) Description 12/24/2022 11:54 AM EDT Anesthesia [place] [phone] Tim Wagner MD [facility] [place] [address] Jeanette Hutchins CRNA [facility] [place] [address] Anesthesia Record Procedure Summary Procedure Name Responsible [...] 218.4 mg Dexmedetomidine 8 mcg Benzocaine 20% [place] 1 spray PHENYLephrine 720 mcg ePHEDrine 40 mg lactated ringers infusion 600 mL * Agents Name O2 Air N2O O2 Auxiliary Flowmeter 1 * Blood No blood administrations on file. Lines, Drains, and Airways Type Details Placement Removal (RETIRED) Peripheral IV Line - Single Lumen 12/24/22; 1108; dorsal arch vein (top of hand), left; xjwp-gag-lukjjl catheter system; 22 gauge; Antonia Proctor RN; [...] Procedure Summary Date: 12/24/22 Room / Location: [facility] ENDO 3 / [facility] ENDOSCOPY Anesthesia Start: 1154 Anesthesia Stop: 1238 Procedure: EGD,WITH DILATION ESOPHAGUS WITH BALLOON,< 30 MM (WRVU 2.67) (Trunk) Diagnosis: Covington's esophagus without dysplasia (covington's; stricture) Surgeons: David Dejesus MD Responsible Provider: Tim Wagner MD Anesthesia Type: general ASA Status: 2 All Anesthesia Providers: Anesthesiologist: Tim Wagner MD HEEL LINING PASTER: Jeanette Hutchins CRNA Vitals Value Taken Time BP 83/43 12/24/22 1255 Temp Pulse Resp SpO2 95 % 08/17/23 1259 Pain Level Vitals shown include unvalidated device data. Patient Location: PACU/IAP Level of Consciousness: Conscious but Sleepy Pain [...] y.o. female. 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 Bipolar disorder 02/12/2022 BMI 37.0-37.9, adult 12/13/2014 T2DM (type 2 diabetes mellitus) 12/12/2014 GERD (gastroesophageal reflux disease) 03/15/2013 Covington's esophagus 03/15/2013 Past Medical History: Diagnosis Date Bipolar disorder 02/12/2022 Past Surgical History: Procedure Laterality Date IR G-TUBE CHECK/CHANGE 11/27/2022 IR G-Tube Check/Change 11/27/2022 Hang Cooper PA [facility] INTERVENTIONL RAD IR G-TUBE PLACEMENT 09/11/2022 IR G-Tube Placement 09/11/2022 Moustapha Hart MD [facility] INTERVENTIONL RAD IR SUTURE RELEASE 09/25/2022 IR Suture Release 09/25/2022 Yoselin Ghosh PA [facility] INTERVENTIONL RAD PERCUTANEOUS GASTROSTOMY N/A 09/11/2022 PERCUTANEOUS GASTROSTOMY performed by Aiden Flores MD at [facility] CATY PRO COLONOSCOPY, BIOPSY N/A 03/20/2016 COLONOSCOPY FLEXIBLE, WITH BX performed by David Dejesus MD at [facility] ENDOSCOPY PRO COLONOSCOPY, DIAGNOSTIC N/A 03/01/2020 COLONOSCOPY, DIAGNOSTIC performed by David Dejesus MD at [facility] ENDOSCOPY PRO ENDOSCOPIC US EXAM, ESOPH N/A 03/31/2022 UPPER EUS- ENDOSCOPIC ULTRASOUND performed by David Dejesus MD at [facility] ENDOSCOPY PRO UPPER GI ENDOSCOPY, BIOPSY N/A 04/03/2014 UPPER GASTROINTESTINAL ENDOSCOPY,WITH BIOPSY SINGLE OR MULTIPLE performed by David Dejesus MDat [facility] ENDOSCOPY PRO UPPER GI ENDOSCOPY, BIOPSY N/A 03/20/2016 EGD WITH BIOPSY performed by David Dejesus MD at [facility] ENDOSCOPY PRO UPPER GI ENDOSCOPY, BIOPSY N/A 11/22/2018 EGD WITH BIOPSY (WRVU 2.49) performed by David Dejesus MD at [facility] ENDOSCOPY PRO UPPER GI ENDOSCOPY, BIOPSY N/A 03/01/2020 UPPER GASTROINTESTINAL ENDOSCOPY,WITH BIOPSY SINGLE OR MULTIPLE (WRVU 2.49) performed by David Dejesus MD at [facility] ENDOSCOPY PRO UPPER GI ENDOSCOPY, BIOPSY N/A 09/23/2021 EGD WITH BIOPSY (WRVU 2.49) performed by David Dejesus MD at [facility] ENDOSCOPY PRO UPPER GI ENDOSCOPY, BIOPSY N/A 03/31/2022 EGD WITH BIOPSY (WRVU 2.49) performed by David Dejesus MD at [facility] ENDOSCOPY PRO UPPER GI ENDOSCOPY, BIOPSY N/A 07/03/2022 EGD WITH BIOPSY (WRVU 2.49) performed by David Dejesus MD at [facility] ENDOSCOPY PRO UPPER GI ENDOSCOPY, DIAGNOSTIC N/A 04/03/2014 EGD, UPPER GI ENDOSCOPY performed by David Dejesus MD at [facility] ENDOSCOPY PRO UPPER GI ENDOSCOPY, DIAGNOSTIC N/A 03/01/2020 EGD, UPPER GI ENDOSCOPY performed by David Dejesus MD at [facility] ENDOSCOPY PRO UPPER GI ENDOSCOPY, DIAGNOSTIC [...] risks discussed with patient. Plan discussed with HEEL LINING PASTER and attending. Anesthesia Screening documented in this encounter Plan of Treatment Upcoming Encounters Date Type Department Care Team (Late st Contact Info) Description 03/10/2024 4:00 PM EDT Office Visit Cardiology at [address] [phone] Milagros Hernandez MD [facility] [place] [address] Scheduled Procedures Name Priority Associated Diagnoses Date/Ti [...] mg documented in this encounter Care Teams Manager Chemistry Relationship Specialty Start Date End Date nAa Gillespie APRN [address] [place] [address] PCP - General Family Medicine 02/03/19 documented as of this encounter
--- OUTSIDE RECORDS SUMMARY | 2024-02-29 19:26 | XMS_ITS | Encounter Summary ---
Author Organization [facility] [place] [address] Care Team Providers Care Livestock Buyer Name Role Phone Aan Gillespie APRN Primary Care Provider Encounter Details [...] PM EDT Office Visit Cardiology at [address] [address] Milagros Hernandez MD [facility] [place] [address] Scheduled Procedures Name Priority Associated Diagnoses Date/Ti me EGD, UPPER GI ENDOSCOPY (WRV U 2.09) Peptic stricture of esophagus documented as of this encounter Visit Diagnoses Not on filedocumented in this encounter Care Teams Livestock Buyer Relationship Specialty Start Date End Date Ana Gillespie APRN [address] [place] [address] PCP - General Family Medicine 02/03/19 documented as of this encounter
--- OUTSIDE RECORDS SUMMARY | 2024-02-29 19:26 | XMS_ITS | Encounter Summary ---
Author Organization [facility] [place] [address] Care Team Providers Care Aerotriangulation Specialist Name Role Phone Ana Gillespie VAUGHN Primary Care Provider [phone] Reason for Visit * Reason Onset Date Comments Triage 02/24/2023 hypotension Encounter Details Date Type Department Care Team (Late st Contact Info) Description 02/24/2023 Telephone Cardiology at [address] [phone] Chela Inman hostess party sales representative (hypotension) Social History Tobacco Use Types Packs/Day [...] BP med(s). She can be reached at [phone]. Call placed to Campos, spouse & care transition manager to get more information for Dr Hernandez. [...] PM EDT Office Visit Cardiology at [address] [phone] Milagros Hernandez MD [facility] [address] Scheduled Procedures Name Priority Associated Diagnoses Date/Ti me EGD, UPPER GI ENDOSCOPY (WRV U 2.09) Peptic stricture of esophagus documented as of this encounter Visit Diagnoses Not on filedocumented in this encounter Care Teams Aerotriangulation Specialist Relationship Specialty Start Date End Date Ana Gillespie APRN [address] [place] [address] PCP - General Family Medicine 02/03/19 documented as of this encounter
--- OUTSIDE RECORDS SUMMARY | 2024-02-29 19:26 | XMS_ITS | Encounter Summary ---
Author Organization [facility] [place] [address] Care Team Providers Care Director Of Kids Name Role Phone Ana Gillespie APRN Primary Care Provider [phone] Encounter Details Date Type Department Care Team (Late st Contact Info) Description 12/08/2022 Telephone [place] [phone] Alyce Vogt RN Social History Tobacco Use [...] 12/08/2022 1:08 PM EDT Copied from CRM #[id number]. Topic: Specialty Dept CRMs - Generic Call [...] PM EDT Office Visit Cardiology at [address] [address] Milagros Hernandez MD [facility] [place] [address] Scheduled Procedures Name Priority Associated Diagnoses Date/Ti me EGD, UPPER GI ENDOSCOPY (WRV U 2.09) Peptic stricture of esophagus documented as of this encounter Visit Diagnoses Not on filedocumented in this encounter Care Teams Director Of Kids Relationship Specialty Start Date End Date Ana Gillespie APRN [address] [place] [address] PCP - General Family Medicine 02/03/19 documented as of this encounter
--- OUTSIDE RECORDS SUMMARY | 2024-02-29 19:26 | XMS_ITS | Encounter Summary ---
Author Organization [facility] Address [facility] [place] [address] Care Team Providers Care Jail Guard Name Role Phone Ana Gillespie VAUGHN Primary Care Provider Encounter Details Date Type Department Care Team (Latest Contact Info) Description 01/12/2023 6:17 AM EDT - 01/12/2023 10:54 AM EDT Hospital [place] [address] David Dejesus MD [facility] [place] [address] Discharge Disposition: Home Social History Tobacco Use [...] the day after the procedure, use an oazc-aqh-uieduzc spray to numb your throat. Sucking on [...] occurs, please contact your Doctor. Please call [phone] before 8pm Mon-Fri with problems, questions or concerns. If you call after 8pm or on weekends, call the Hospital at [phone] and ask to speak to the Police Academy Instructor cotton farmworker and the paper cone machine operator will contact that person for [...] any problems. Where can you learn more? [facility] View your After Visit Summary and more online at [email or web address] If you would like to provide feedback about your hospital experience, please call the Office of Patient and Family Relations at . If you have received this After Visit Summary in error, please immediately return it in person to the department, or notify the [facility] Privacy Office by calling toll free at between the hours of 8AM and 5PM to arrange for our retrieval of the documents at no cost to you. Content Version: 12.2 ?? 7067-0322 [employer]. Care instructions adapted under license by [facility]. If you have questions about a medical condition or this instruction, always ask your healthcare professional. [employer] disclaims any warranty or liability for your [...] strips. 300 each 3 12/14/2014 Blood-Glucose Meter (Cyber InternsTOUCH ULTRA2) KitIndications:Type 2 diabetes mellitus, uncontrolled by Other route. 1 = one blood glucose meter kit. 1 each 0 12/14/2014 Insulin Hyden, Disposable, (BD INSULIN PEN NEEDLE UF MINI) 31 x 3/16 NeedleIndications:Di abetes mellitus type 2, uncontrolled 1 Device by [facility].(Non-Drug; Combo Route) route 3 times daily as [...] PM EDT Office Visit Cardiology at [address] [address] Milagros Hernandez MD [facility] [place] [address] Scheduled Procedures Name Priority Associated Diagnoses Date/Ti me EGD, UPPER GI ENDOSCOPY (WRV U 2.09) Peptic stricture of esophagus documented as of this encounter Procedures Procedure Name Priority Date/Time Associated Diagnosis Comments Up Gi Endoscopy, Ball Dil, 30Mm (63594) 01/12/2023 8:06 AM EDT Peptic stricture of esophagus POCT GLUCOSE Routine 01/12/2023 7:31 AM EDT documented in this encounter Results * POCT Glucose (01/12/2023 7:31 AM EDT) Glucose, POC 115 65 - 199 mg/dL [facility] Comment: Supplemental ranges: <140 mg/dL before meals <180 mg/dL all other times of the day Blood 01/12/2023 7:31 AM EDT 01/12/2023 7:31 AM EDT David Dejesus MD POINT OF CARE TEST ORDERABLES [facility] [address] [facility] [place] [place] [address] documented in this encounter Visit Diagnoses Not [...] CRNA) documented in this encounter Care Teams Jail Guard Relationship Specialty Start Date End Date Ana Gillespie APRN [address] [place] [address] PCP - General Family Medicine 02/03/19 documented as of this encounter
--- OUTSIDE RECORDS SUMMARY | 2024-02-29 19:26 | XMS_ITS | Encounter Summary ---
Author Organization [facility] [place] [address] Care Team Providers Care Orthodontist Assistant Name Role Phone Ana Gillespie APRN Primary Care Provider [phone] Encounter Details Date Type Department Care Team [...] PM EDT Office Visit Cardiology at [address] [address] Milagros Hernandez MD [facility] [place] [address] Scheduled Procedures Name Priority Associated Diagnoses Date/Ti me EGD, UPPER GI ENDOSCOPY (WRV U 2.09) Peptic stricture of esophagus documented as of this encounter Visit Diagnoses Not on filedocumented in this encounter Care Teams Orthodontist Assistant Relationship Specialty Start Date End Date Ana Gillespie APRN [address] [place] [address] PCP - General Family Medicine 02/03/19 documented as of this encounter
--- OUTSIDE RECORDS SUMMARY | 2024-02-29 19:26 | XMS_ITS | Encounter Summary ---
Author Organization [facility] Address [facility] [place] [address] Care Team Providers Care Senior Engineering Tech Name Role Phone Ana Gillespie VAUGHN Primary Care Provider [phone] Reason for Visit * Reason Onset Date [...] Contact Info) Description 12/08/2022 Tele[place] [phone] Elsie Erickson APRN [facility] [place] [address] Medication Refill (Jennifer is out of her [...] PM EDT Office Visit Cardiology at [address] [phone] Milagros Hernandze MD [facility] [place] [address] Scheduled Procedures Name Priority Associated Diagnoses Date/Ti me EGD, UPPER GI ENDOSCOPY (WRV U 2.09) Peptic stricture of esophagus documented as of this encounter Visit Diagnoses Not on filedocumented in this encounter Care Teams Senior Engineering Tech Relationship Specialty Start Date End Date Ana Gillespie APRN [address] [place] [address] PCP - General Family Medicine 02/03/19 documented as of this encounter
--- OUTSIDE RECORDS SUMMARY | 2024-02-29 19:26 | XMS_ITS | Encounter Summary ---
Author Organization [facility] [address] Care Team Providers Care Large Sheetfed Press Operator Name Role Phone Ana Gillespie APRN Primary Care Provider [phone] Encounter Details Date Type Department Care Team (Late Contact Info) Description 12/24/2022 Orders [place] [phone] David Dejesus MD [facility] [place] [address] Peptic stricture of esophagus Social History Tobacco [...] PM EDT Office Visit Cardiology at [address] [phone] Milagros Hernandez MD [facility] [place] [address] Scheduled Orders Name Type Priority Associated Diagnoses [...] esophagus documented in this encounter Care Teams Large Sheetfed Press Operator Relationship Specialty Start Date End Date Ana Gillespie APRN [address] [place] [address] PCP - General Family Medicine 02/03/19 documented as of this encounter
--- OUTSIDE RECORDS SUMMARY | 2024-02-29 19:26 | XMS_ITS | Encounter Summary ---
Author Organization [facility] [place] [address] Care Team Providers Care Malter Operator Name Role Phone Ana Gillespie VAUGHN Primary Care Provider [phone] Reason for Visit * Reason Onset Date Comments Diabetes 09/30/2022 Encounter Details Date Type Department Care Team (Late st Contact Info) Description 09/30/2022 Telephone [place] [phone] Elsie Erickson APRN [facility] [place] [address] Diabetes Social History Tobacco Use Types Packs/Day [...] PM EDT Office Visit Cardiology at [address] [phone] Milagros Hernandez MD [facility] [place] [address] Scheduled Procedures Name Priority Associated Diagnoses Date/Ti me EGD, UPPER GI ENDOSCOPY (WRV U 2.09) Peptic stricture of esophagus documented as of this encounter Visit Diagnoses Not on filedocumented in this encounter Care Teams Malter Operator Relationship Specialty Start Date End Date Ana Gillespie APRN [address] [place] [address] PCP - General Family Medicine 02/03/19 documented as of this encounter
--- OUTSIDE RECORDS SUMMARY | 2024-02-29 19:26 | XMS_ITS | Encounter Summary ---
Author Organization [facility] Address [facility] [place] [address] Care Team Providers Care Home Assessment Nurse Name Role Phone Ana Gillespie APRN Primary Care Provider [phone] Reason for Visit * Consultation (Urgent) - Closed Specialty Diagnoses / Procedures Referred By Esperanza t Referred To Contact Cardiology Diagnoses Cardiac LV ejection fraction 30-35% Ana Gillespie APRN [address] [place] [address] [facility] Cardiology [address] [place] [phone] Referral ID Status Reason Start Date Expiration Date V isits Requested Visits Authorized [id number] Closed Consult, Test & Treat PCP Updated and/or Approved 11/23/2022 11/23/2023 12 12 Encounter Details Date Type Department Care Team (Latest Contact Info) Description 01/15/2023 11:20 AM EDT Office Visit Cardiology at [address] [address] Milagros Hernandez MD [facility] [address] Stress-induced cardiomyopathy (Primary Dx); HFrEF (heart failure [...] the original note were not included. Formerly [facility] CASSI[place] Alarcon [address] CARDIOLOGY OUTPATIENT NOTE PRIMARY CARE PROVIDER: Ana [...] glucose meter kit. 1 each 0 Insulin [place], Disposable, (BD INSULIN PEN NEEDLE UF MINI) 31 x 3/16 Needle 1 Device by [facility]Non-Drug; Combo Route) route 3 times daily [...] putting in new L hip replacement at [facility] next week due to inadequate healing form [...] 450 QTC Calculated (Bezet) 426 Calculated P [place] 55 Calculated R [place] 56 Calculated T [place] 49 INTERPRETATION Sinus bradycardia Low voltage QRS [...] Sinus bradycardia, low voltage, otherwise normal TTE ([facility], 11/20/22): TTE (08/19/22): Interpretation Summary [...] personal interpretation of testing results, medication reconciliation, [id number] interview, examination and counseling of the patient, coordination of care and documentation of the above. Thank you for the opportunity to participate in this patient's cardiovascular care. All questions were answered and I look forward to the next visit. Milagros Hernandez MD Cardiovascular Medicine [facility] 01/15/2023 documented in this encounter Plan of Treatment Upcoming Encounters Date Type Department Care Team (Late st Contact Info) Description 03/10/2024 4:00 PM EDT Office Visit Cardiology at [address] [address] Milagros Hernandez MD [facility] [place] [address] Scheduled Procedures Name Priority Associated Diagnoses Date/Ti [...] (Bezet) 426 ms MUSE SYSTEM Calculated P [place] 55 degrees MUSE SYSTEM Calculated R [place] 56 degrees MUSE SYSTEM Calculated T [place] 49 degrees MUSE SYSTEM INTERPRETATION Sinus bradycardia [...] fraction) documented in this encounter Care Teams Home Assessment Nurse Relationship Specialty Start Date End Date Ana Gillespie APRN [address] [place] [address] PCP - General Family Medicine 02/03/19 documented as of this encounter
--- OUTSIDE RECORDS SUMMARY | 2024-02-29 19:26 | XMS_ITS | Encounter Summary ---
Author Organization [facility]ly [facility] [place] [address] Care Team Providers Care Shelf Drier Operator Name Role Phone Ana Gillespie VAUGHN Primary Care Provider [phone] Encounter Details Date Type Department Care Team (Late st Contact Info) Description 12/21/2022 [place] [phone] Jessica Beckman Social History Tobacco Use Types [...] 12/21/2022 8:07 AM EDT Called pt to [facility] MAC EGD 12/24 at 11:30am per Dr Dejesus-had to [facility] documented in this encounter Plan of Treatment Upcoming Encounters Date Type Department Care Team (Late st Contact Info) Description 03/10/2024 4:00 PM EDT Office Visit Cardiology at [address] [phone] Milagros Hernandez MD [facility] [address] [place] [address] Scheduled Procedures Name Priority Associated Diagnoses Date/Ti me EGD, UPPER GI ENDOSCOPY (WRV U 2.09) Peptic stricture of esophagus documented as of this encounter Visit Diagnoses Not on filedocumented in this encounter Care Teams Shelf Drier Operator Relationship Specialty Start Date End Date Ana Gillespie APRN [address] [place] [address] PCP - General Family Medicine 02/03/19 documented as of this encounter
--- OUTSIDE RECORDS SUMMARY | 2024-02-29 19:26 | XMS_ITS | Encounter Summary ---
Author Organization [facility] Address [facility] [place] [address] Care Team Providers Care Kiln Transfer Operator Name Role Phone Ana Gillespie APRN Primary Care Provider [phone] Encounter Details Date Type Department Care Team (Late st Contact Info) Description 11/23/2022 Notes Only Radiology at [facility] [place] [address] Hang Cooper PA [facility] [place] [address] Social History Tobacco Use Types Packs/Day Years [...] mg by mouth daily. Blood Sugar Diagnostic (Oncoscope ULTRA TEST) Strip 1 each by Other [...] meter kit. 1 each 0 Insulin [place], Disposable, (BD INSULIN PEN NEEDLE UF MINI) 31 x 3/16 Needle 1 Device by [facility].(Non-Drug; Combo Route) route 3 times daily as [...] IR G-Tube Placement 09/11/2022 Moustapha Hart MD [facility] INTERVENTIONL RAD IR SUTURE RELEASE 09/25/2022 IR Suture Release 09/25/2022 Yoselin Ghosh PA [facility] INTERVENTIONL RAD PERCUTANEOUS GASTROSTOMY N/A 09/11/2022 PERCUTANEOUS GASTROSTOMY performed by Aiden Flores MD at [facility] CATY PRO COLONOSCOPY, BIOPSY N/A 03/20/2016 COLONOSCOPY FLEXIBLE, WITH BX performed by David Dejesus MD at [facility] ENDOSCOPY PRO COLONOSCOPY, DIAGNOSTIC N/A 03/01/2020 COLONOSCOPY, DIAGNOSTIC performed by David Dejesus MD at [facility] ENDOSCOPY PRO ENDOSCOPIC US EXAM, ESOPH N/A 03/31/2022 UPPER EUS- ENDOSCOPIC ULTRASOUND performed by David Dejesus MD at [facility] ENDOSCOPY PRO UPPER GI ENDOSCOPY, BIOPSY N/A 04/03/2014 UPPER GASTROINTESTINAL ENDOSCOPY,WITH BIOPSY SINGLE OR MULTIPLE performed by David Dejesus MDat [facility] ENDOSCOPY PRO UPPER GI ENDOSCOPY, BIOPSY N/A 03/20/2016 EGD WITH BIOPSY performed by David Dejesus MD at [facility] ENDOSCOPY PRO UPPER GI ENDOSCOPY, BIOPSY N/A 11/22/2018 EGD WITH BIOPSY (WRVU 2.49) performed by David Dejesus MD at [facility] ENDOSCOPY PRO UPPER GI ENDOSCOPY, BIOPSY N/A 03/01/2020 UPPER GASTROINTESTINAL ENDOSCOPY,WITH BIOPSY SINGLE OR MULTIPLE (WRVU 2.49) performed by David Dejesus MD at [facility] ENDOSCOPY PRO UPPER GI ENDOSCOPY, BIOPSY N/A 09/23/2021 EGD WITH BIOPSY (WRVU 2.49) performed by David Dejesus MD at [facility] ENDOSCOPY PRO UPPER GI ENDOSCOPY, BIOPSY N/A 03/31/2022 EGD WITH BIOPSY (WRVU 2.49) performed by David Dejesus MD at [facility] ENDOSCOPY PRO UPPER GI ENDOSCOPY, BIOPSY N/A 07/03/2022 EGD WITH BIOPSY (WRVU 2.49) performed by David Dejesus MD at [facility] ENDOSCOPY PRO UPPER GI ENDOSCOPY, DIAGNOSTIC N/A 04/03/2014 EGD, UPPER GI ENDOSCOPY performed by David Dejesus MD at [facility] ENDOSCOPY PRO UPPER GI ENDOSCOPY, DIAGNOSTIC N/A 03/01/2020 EGD, UPPER GI ENDOSCOPY performed by David Dejesus MD at [facility] ENDOSCOPY PRO UPPER GI ENDOSCOPY, DIAGNOSTIC N/A 09/09/2022 EGD, UPPER GI ENDOSCOPY (WRVU 2.09) performed by Ayo Russ MD at [facility] MAIN OR Social history and habits: Social [...] PM EDT Office Visit Cardiology at [address] [address] Milagros Hernandez MD [facility] [place] [address] Scheduled Procedures Name Priority Associated Diagnoses Date/Ti me EGD, UPPER GI ENDOSCOPY (WRV U 2.09) Peptic stricture of esophagus documented as of this encounter Visit Diagnoses Not on filedocumented in this encounter Care Teams Kiln Transfer Operator Relationship Specialty Start Date End Date Ana Gillespie APRN [address] [place] [address] PCP - General Family Medicine 02/03/19 documented as of this encounter
--- OUTSIDE RECORDS SUMMARY | 2024-02-29 19:26 | XMS_ITS | Encounter Summary ---
Author Organization [facility] Address [facility] [place] [address] Care Team Providers Care Relief Captain Name Role Phone Ana Gillespie APRN Primary Care Provider [phone] Encounter Details Date Type Department Care Team (Late st Contact Info) Description 01/13/2023 Telephone [place] [phone] Parris Maravilla Social History Tobacco Use Types [...] PM EDT Office Visit Cardiology at [address] [phone] Milagros Hernandez MD [facility] [place] [address] Scheduled Procedures Name Priority Associated Diagnoses Date/Ti me EGD, UPPER GI ENDOSCOPY (WRV U 2.09) Peptic stricture of esophagus documented as of this encounter Visit Diagnoses Not on filedocumented in this encounter Care Teams Relief Captain Relationship Specialty Start Date End Date Ana Gillespie APRN [address] [place] [address] PCP - General Family Medicine 02/03/19 documented as of this encounter
--- OUTSIDE RECORDS SUMMARY | 2024-02-29 19:26 | XMS_ITS | Encounter Summary ---
Author Organization [facility] Address [facility] [place] [address] Care Team Providers Care Log Pond Worker Name Role Phone Ana Gillespie APRN Primary Care Provider [phone] Encounter Details Date Type Department Care Team (Late st Contact Info) Description 01/12/2023 8:06 AM EDT Anesthesia Event [place] [address] Bogdan Song MD [facility] [place] [address] Cristine Gomez CRNA [facility] [place] [address] Anesthesia Record Procedure Summary Procedure Name Responsible [...] dorsal arch vein (top of foot), left; inxo-yvy-wremjw catheter system; Anatomical Landmarks; US Not Used; [...] Procedure Summary Date: 01/12/23 Room / Location: [facility] ENDO 2 / [facility] ENDOSCOPY Anesthesia Start: 805 Anesthesia Stop: 919 Procedure: EGD,WITH DILATION ESOPHAGUS WITH BALLOON,< 30 MM (WRVU 2.67) (Trunk) Diagnosis: Peptic stricture of esophagus (peptic stricture - needs dilation under anestheszi in 10-14 days) Surgeons: David Dejesus MD Responsible Provider: Bogdan Song MD Anesthesia Type: MAC ASA Status: 2 All Anesthesia Providers: Anesthesiologist: Bogdan Song MD PICK UP: Chiquis Burnham CRNA Student Nurse Azure Principal Solution Specialist: Irwin Novak Vitals Value Taken Time BP 113/54 01/12/23 0955 Temp Pulse Resp 17 01/12/23 0955 SpO2 97 % 01/12/23 0955 Pain Level 0 01/12/23 0940 Patient Location: PACU/[facility] Level of Consciousness: Awake and [...] y.o. female. Procedure(s): EGD, [facility] Patient Active Problem List Diagnosis Date [...] IR G-Tube Check/Change 11/27/2022 Hang Cooper PA [facility] INTERVENTIONL RAD ??? IR G-TUBE PLACEMENT 09/11/2022 IR G-Tube Placement 09/11/2022 Moustapha Hart MD [facility] INTERVENTIONL RAD ??? IR SUTURE RELEASE 09/25/2022 IR Suture Release 09/25/2022 Yoselin Ghosh PA [facility] INTERVENTIONL RAD ??? PERCUTANEOUS GASTROSTOMY N/A 09/11/2022 PERCUTANEOUS GASTROSTOMY performed by Aiden Flores MD at [facility] CATY ??? PRO COLONOSCOPY, BIOPSY N/A 03/20/2016 COLONOSCOPY FLEXIBLE, WITH BX performed by David Dejesus MD at [facility] ENDOSCOPY ??? PRO COLONOSCOPY, DIAGNOSTIC N/A 03/01/2020 COLONOSCOPY, DIAGNOSTIC performed by David Dejesus MD at [facility] ENDOSCOPY ??? PRO ENDOSCOPIC US EXAM, ESOPH N/A 03/31/2022 UPPER EUS- ENDOSCOPIC ULTRASOUND performed by David Dejesus MD at [facility] ENDOSCOPY ??? PRO UP GI ENDOSCOPY, BALL DIL, 30MM N/A 12/24/2022 EGD,WITH DILATION ESOPHAGUS WITH BALLOON,< 30 MM (WRVU 2.67) performed by David Dejesus [facility] ENDOSCOPY ??? PRO UPPER GI ENDOSCOPY, BIOPSY N/A 04/03/2014 UPPER GASTROINTESTINAL ENDOSCOPY,WITH BIOPSY SINGLE OR MULTIPLE performed by David Dejesus [facility] ENDOSCOPY ??? PRO UPPER GI ENDOSCOPY, BIOPSY N/A 03/20/2016 EGD WITH BIOPSY performed by David Dejesus MD at [facility] ENDOSCOPY ??? PRO UPPER GI ENDOSCOPY, BIOPSY N/A 11/22/2018 EGD WITH BIOPSY (WRVU 2.49) performed by David Dejesus MD at [facility] ENDOSCOPY ??? PRO UPPER GI ENDOSCOPY, BIOPSY N/A 03/01/2020 UPPER GASTROINTESTINAL ENDOSCOPY,WITH BIOPSY SINGLE OR MULTIPLE (WRVU 2.49) performed by David Dejesus MD at [facility] ENDOSCOPY ??? PRO UPPER GI ENDOSCOPY, BIOPSY N/A 09/23/2021 EGD WITH BIOPSY (WRVU 2.49) performed by David Dejesus MD at [facility] ENDOSCOPY ??? PRO UPPER GI ENDOSCOPY, BIOPSY N/A 03/31/2022 EGD WITH BIOPSY (WRVU 2.49) performed by David Dejesus MD at [facility] ENDOSCOPY ??? PRO UPPER GI ENDOSCOPY, BIOPSY N/A 07/03/2022 EGD WITH BIOPSY (WRVU 2.49) performed by David Dejesus MD at [facility] ENDOSCOPY ??? PRO UPPER GI ENDOSCOPY, DIAGNOSTIC N/A 04/03/2014 EGD, UPPER GI ENDOSCOPY performed by David Dejesus MD at [facility] ENDOSCOPY ??? PRO UPPER GI ENDOSCOPY, DIAGNOSTIC N/A 03/01/2020 EGD, UPPER GI ENDOSCOPY performed by David Dejesus MD at [facility] ENDOSCOPY ??? PRO UPPER GI ENDOSCOPY, DIAGNOSTIC N/A 09/09/2022 EGD, UPPER GI ENDOSCOPY (WRVU 2.09) performed by Ayo Russ MD at [facility] MAIN OR Social History Tobacco [...] risks discussed with patient. Plan discussed with PICK UP and attending. Anesthesia Screening documented in this encounter Plan of Treatment Upcoming Encounters Date Type Department Care Team (Late st Contact Info) Description 03/10/2024 4:00 PM EDT Office Visit Cardiology at [address] [address] Milagros Hernandez MD [facility] [place] [address] Scheduled Procedures Name Priority Associated Diagnoses Date/Ti [...] mg documented in this encounter Care Teams Log Pond Worker Relationship Specialty Start Date End Date Ana Gillespie APRN [address] [place] [address] PCP - General Family Medicine 02/03/19 documented as of this encounter
--- OUTSIDE RECORDS SUMMARY | 2024-02-29 19:26 | XMS_ITS | Encounter Summary ---
Author Organization [facility] Address [facility] [place] [address] Care Team Providers Care Animal Humane Agent Supervisor Name Role Phone Ana Gillespie VAUGHN Primary Care Provider Reason for Visit * Diagnostic Test (Routine) - Closed Specialty Diagnoses / Procedures Referred By Esperanza rodríguez Referred To Contact Radiology Diagnoses Neuroleptic-induced parkinsonism Procedures IR G-Tube Check/Change IR GJ-Tube Check/Change Fannie Conde PA [facility] [place] [address] [facility] [place] [address] Referral ID Status Reason Start Date Expiration Date V isits Requested Visits Authorized [id number] Closed Specialty Service Requested 11/23/2022 05/26/2024 1 1 Encounter Details Date Type Department Care Team (Latest Contact Info) Description 11/27/2022 1:04 PM EDT - 11/27/2022 11:59 PM EDT Hospital [place] [address] Azeem Alarcon MD [facility] [place] [address] Neuroleptic-induced parkinsonism Discharge Disposition: Home Social History [...] meter kit. 1 each 0 12/14/2014 Insulin [place], Disposable, (BD INSULIN PEN NEEDLE UF [...] of : 1960 AGE: 62 y.o. Address: [address] [address] (home) Mobile: Telephone Information: Referring Provider: Fannie Conde REASON FOR VISIT: Order Questions Answers Where will study be performed? [facility] Radiology [120] Is the patient on [...] of : 1960 AGE: 62 y.o. Address: [address] [address] (home) Mobile: Telephone Information: Referring Provider: Fannie Conde REASON FOR VISIT: Order Questions Answers Where will study be performed? [facility] Radiology [120] Is the patient on [...] PM EDT Office Visit Cardiology at [address] [address] Milagros Hernandez MD [facility] [place] [address] Scheduled Procedures Name Priority Associated Diagnoses Date/Ti [...] monitored. Technique: The patient was positioned supine. Drag Seiner imaging was performed with air injection through [...] Glucose, POC 128 65 - 199 mg/dL [facility] Comment: Supplemental ranges: <140 mg/dL before meals <180 mg/dL all other times of the day Blood 11/27/2022 1:25 PM EDT 11/27/2022 1:25 PM EDT Azeem Alarcon MD POINT OF CARE TEST O RDERABLES [facility] [place] [address] documented in this encounter Visit Diagnoses Diagnosis Neuroleptic-induced parkinsonism Secondary Parkinsonism documented in this encounter Care Teams Animal Humane Agent Supervisor Relationship Specialty Start Date End Date Ana Gillespie APRN [address] [place] [address] PCP - General Family Medicine 02/03/19 documented as of this encounter
--- OUTSIDE RECORDS SUMMARY | 2024-02-29 19:26 | XMS_ITS | Encounter Summary ---
Author Organization [facility] [place] [address] Care Team Providers Care Deputy Chief Magistrate Name Role Phone Ana Gillespie ENVIRONMENTAL AUDITOR Primary Care Provider [phone] Encounter Details Date Type Department Care Team (Late st Contact Info) Description 12/25/2022 Telephone [place] [address] Parris Maravilla Social History Tobacco [...] PM EDT Office Visit Cardiology at [address] [phone] Milagros Hernandez MD [facility] [place] [address] Scheduled Procedures Name Priority Associated Diagnoses Date/Ti me EGD, UPPER GI ENDOSCOPY (WRV U 2.09) Peptic stricture of esophagus documented as of this encounter Visit Diagnoses Not on filedocumented in this encounter Care Teams Deputy Chief Magistrate Relationship Specialty Start Date End Date Ana Gillespie APRN [address] [place] [address] PCP - General Family Medicine 02/03/19 documented as of this encounter
--- OUTSIDE RECORDS SUMMARY | 2024-02-29 19:26 | XMS_ITS | Encounter Summary ---
Author Organization [facility] [place] [address] Care Team Providers Care Bill Adjuster Name Role Phone Jose MiguelAna VAUGHN Primary Care Provider [phone] Reason for Visit * Reason Onset Date Comments Diabetes 09/30/2022 Encounter Details Date Type Department Care Team (Late st Contact Info) Description 09/30/2022 Telephone [place] [address] Elsie Erickson COMPUTER GRAPHIC ARTIST [facility] [place] [address] Diabetes Social History Tobacco Use Types Packs/Day [...] PM EDT Office Visit Cardiology at [address] [address] Milagros Hernandez MD [facility] [place] [address] Scheduled Procedures Name Priority Associated Diagnoses Date/Ti me EGD, UPPER GI ENDOSCOPY (WRV U 2.09) Peptic stricture of esophagus documented as of this encounter Visit Diagnoses Not on filedocumented in this encounter Care Teams Bill Adjuster Relationship Specialty Start Date End Date Ana Gillespie APRN [address] [place] [address] PCP - General Family Medicine 02/03/19 documented as of this encounter
--- OUTSIDE RECORDS SUMMARY | 2024-02-29 19:26 | XMS_ITS | Encounter Summary ---
Author Organization [facility] [place] [address] Care Team Providers Care Pe Teacher Name Role Phone Ana Gillespie VAUGHN Primary Care Provider [phone] Encounter Details Date Type Department Care Team (Late st Contact Info) Description 12/10/2022 Telephone Gastroenterology at [facility] [place] [address] Jessica Beckman Social History Tobacco Use Types [...] - 12/10/2022 10:00 AM EDT Jennifer Irving [id number] Diagnosis/Indication: Dysphagia, Follow-up of Farrell's esophagus Please [...] a/an Upper Endoscopy before? Yes: Date 09/10/22 [facility] If yes, did you have any problems [...] your procedure. Who will likely be your haul driver for the procedure? *Please Verify the [...] 4:00 PM EDT Office Visit Cardiology at [address] [address] Milagros Hernandez MD [facility] [place] [address] Scheduled Procedures Name Priority Associated Diagnoses Date/Ti me EGD, UPPER GI ENDOSCOPY (WRV U 2.09) Peptic stricture of esophagus documented as of this encounter Visit Diagnoses Not on filedocumented in this encounter Care Teams Pe Teacher Relationship Specialty Start Date End Date Ana Gillespie APRN [address] [place] [address] PCP - General Family Medicine 02/03/19 documented as of this encounter
--- OUTSIDE RECORDS SUMMARY | 2024-02-29 19:26 | XMS_ITS | Encounter Summary ---
[place] [address] Care Team Providers Care Vice President Corporate Communications Name Role Phone Ana Gillespie APRN Primary Care Provider [phone] Reason for Referral * Consultation (Urgent) - Closed Specialty Diagnoses / Procedures Referred By Contac t Referred To Contact Cardiology Diagnoses Cardiac LV ejection fraction 30-35% Ana Gillespie APRN [address] [place] [address] [facility] [address] [place] [phone] Referral ID Status Reason Start Date Expiration Date V isits Requested Visits Authorized [id number] Closed Consult, Test & Treat PCP Updated and/or Approved 11/23/2022 11/23/2023 12 12 Encounter Details Date Type Department Care Team (Latest Contact Info) Description 11/23/2022 Transcribe Orders eDH Incoming Referrals [phone] Ana Gillespie APRN [address] [place] [address] Cardiac LV ejection fraction 30-35% Social History [...] PM EDT Office Visit Cardiology at [address] [address] Milagros Hernandez MD [facility] [place] [address] Scheduled Procedures Name Priority Associated Diagnoses Date/Ti [...] system documented in this encounter Care Teams Vice President Corporate Communications Relationship Specialty Start Date End Date Ana Gillespie APRN [address] [place] [address] PCP - General Family Medicine 02/03/19 documented as of this encounter
--- OUTSIDE RECORDS SUMMARY | 2024-02-29 19:26 | XMS_ITS | Encounter Summary ---
Author Organization [facility] Address [facility] [place] [address] Care Team Providers Care Gas Scrubber Operator Name Role Phone Ana Gillespie APRN Primary Care Provider Encounter Details Date Type Department Care Team (Latest Contact Info) Description 02/26/2023 12:03 PM EDT - 02/26/2023 3:41 PM EDT Hospital En[place] [phone] David Dejesus MD [facility] [place] [address] Discharge Disposition: Home Social History Tobacco Use [...] the day after the procedure, use an uukg-brl-[id number] spray to numb your throat. Sucking on [...] occurs, please contact your Doctor. Please call [phone] before 8pm Mon-Fri with problems, questions or concerns. If you call after 8pm or on weekends, call the Hospital at [phone] and ask to speak to the [employer] hotel operations manager and the lung gun operator will contact that person for you. [...] any problems. Where can you learn more? [facility] View your After Visit Summary and more online at [email or web address] If you would like to provide feedback about your hospital experience, please call the Office of Patient and Family Relations at . If you have received this After Visit Summary in error, please immediately return it in person to the department, or notify the [facility] Privacy Office by calling toll free at between the hours of 8AM and 5PM to arrange for our retrieval of the documents at no cost to you. Content Version: 12.2 ?? 3238-5743 QuickProNotes. Care instructions adapted under license by [facility]. If you have questions about a medical condition or this instruction, always ask your healthcare professional. QuickProNotes disclaims any warranty or liability for your [...] meter kit. 1 each 0 12/14/2014 Insulin [place], Disposable, (BD INSULIN PEN NEEDLE UF MINI) [...] glucose meter kit. 1 each 0 Insulin [place], Disposable, (BD INSULIN PEN NEEDLE UF MINI) [...] PM EDT Office Visit Cardiology at [address] [address] Milagros Hernandez MD [facility] [place] [address] Scheduled Procedures Name Priority Associated Diagnoses Date/Ti me EGD, UPPER GI ENDOSCOPY (WRV U 2.09) Peptic stricture of esophagus documented as of this encounter Procedures Procedure Name Priority Date/Time Associated Diagnosis Comments Up Gi Endoscopy, Ball Dil, 30Mm (36010) 02/26/2023 2:09 PM EDT Peptic stricture of esophagus POCT GLUCOSE Routine 02/26/2023 1:28 PM EDT documented in this encounter Results * POCT Glucose (02/26/2023 1:28 PM EDT) Glucose, POC 71 65 - 199 mg/dL [facility] Comment: Supplemental ranges: <140 mg/dL before meals <180 mg/dL all other times of the day Blood 02/26/2023 1:28 PM EDT 02/26/2023 1:28 PM EDT David Dejesus MD POINT OF CARE TEST ORDERABLES [facility] [place] [address] documented in this encounter Visit Diagnoses Not [...] documented in this encounter Care Teams Gas Scrubber Operator Relationship Specialty Start Date End Date Ana Gillespie APRN [address] [place] [address] PCP - General Family Medicine 02/03/19 documented as of this encounter
--- OUTSIDE RECORDS SUMMARY | 2024-02-29 19:26 | XMS_ITS | Encounter Summary ---
Author Organization [facility] Address [facility] [place] [address] Care Team Providers Care Buttonhole Tacker Name Role Phone Ana iGllespie APRN Primary Care Provider [phone] Encounter Details Date Type Department Care Team (Late st Contact Info) Description 11/12/2022 11:30 AM EDT Office [place] [phone] Dixie Tadeo MD [facility] [place] [address] Type 2 diabetes mellitus with diabetic polyneuropathy, [...] mg 250mg x4 per TF can [] 5257-8383 mg [] 3853-3675 mg [] Above 1500 mg Medications: Current [...] glucose meter kit. 1 each 0 Insulin [place], Disposable, (BD INSULIN PEN NEEDLE UF MINI) [...] 30 ng/ml and above. Was started on [id number] U Q weekly when inpatient. C. Will order BMD by DXA now, will be done at [facility] D. If 25 Vit D at [...] PM EDT Office Visit Cardiology at [address] [address] Milagros Hernandez MD [facility] [place] [address] Scheduled Procedures Name Priority Associated Diagnoses Date/Ti me EGD, UPPER GI ENDOSCOPY (WRV U 2.09) Peptic stricture of esophagus documented as of this encounter Visit Diagnoses Diagnosis Type 2 diabetes mellitus with diabetic polyneuropathy, with long-term current use of insulin Osteoporosis, unspecified osteoporosis type, unspecified pathological fracture presence documented in this encounter Care Teams Buttonhole Tacker Relationship Specialty Start Date End Date Ana Gillespie APRN [address] [place] [address] PCP - General Family Medicine 02/03/19 documented as of this encounter
--- OUTSIDE RECORDS SUMMARY | 2024-02-29 19:26 | XMS_ITS | Encounter Summary ---
Author Organization [facility] [place] [address] Care Team Providers Care Payment Specialist Name Role Phone Ana Gillespie SPECIMEN COLLECTOR Primary Care Provider [phone] Reason for Visit * Reason Onset Date Comments Medication Refill 11/19/2022 Encounter Details Date Type Department Care Team (Late st Contact Info) Description 11/19/2022 Refill [place] [address] Alyce Vogt RN Social History Tobacco Use [...] PM EDT Office Visit Cardiology at [address] [phone] Milagros Hernandez MD [facility] [place] [address] Scheduled Procedures Name Priority Associated Diagnoses Date/Ti me EGD, UPPER GI ENDOSCOPY (WRV U 2.09) Peptic stricture of esophagus documented as of this encounter Visit Diagnoses Not on filedocumented in this encounter Care Teams Payment Specialist Relationship Specialty Start Date End Date Ana Gillespie APRN [address] [place] [address] PCP - General Family Medicine 02/03/19 documented as of this encounter
--- OUTSIDE RECORDS SUMMARY | 2024-02-29 19:26 | XMS_ITS | Encounter Summary ---
Author Organization [facility] Address [facility] [place] [address] Care Team Providers Care Elevator Adjuster Name Role Phone Ana Gillespie VAUGHN Primary Care Provider [phone] Encounter Details Date Type Department Care Team (Late st Contact Info) Description 12/24/2022 12:00 PM EDT - 12/24/2022 12:30 PM EDT [place] [phone] David Dejesus MD [facility] [place] [address] EGD,WITH DILATION ESOPHAGUS WITH BALLOON,< 30 MM [...] 180 tablet 3 10/20/2021 Blood Sugar Diagnostic ([employer] ULTRA TEST) StripIndications:Typ e 2 diabetes mellitus, [...] meter kit. 1 each 0 12/14/2014 Insulin [place], Disposable, (BD INSULIN PEN NEEDLE UF MINI) [...] glucose meter kit. 1 each 0 Insulin [place], Disposable, (BD INSULIN PEN NEEDLE UF MINI) 31 x 3/16 Needle 1 Device by Mis.(Non-Drug; Combo Route) route 3 times daily as needed. 100 each 11 PHYSICAL EXAM: Blood pressure 110/57, pulse 62, temperature 36.2 ??C (97.2 ??F), temperature source Tympanic, [id number] %. GEN: Alert, cooperative. Pleasant. 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 Patient Name: Jennifer Irving ? Date of : 1960 ? Age: 62 ? Order #: [id number] ? Instrument Name: [id number] ? Procedure: ? Upper GI endoscopy Indications: [...] Glucose, POC 123 65 - 199 mg/dL [facility] Comment: Supplemental ranges: <140 mg/dL before meals <180 mg/dL all other times of the day Blood 12/24/2022 11:0 2 AM EDT 12/24/2022 11:02 AM EDT David Dejesus MD POINT OF CARE TEST ORDERABLES Performing Organization Address City/[facility] Co de Phone Number [facility] [place] [address] documented in this encounter Visit Diagnoses Diagnosis [...] CRNA) documented in this encounter Care Teams Elevator Adjuster Relationship Specialty Start Date End Date Ana Gillespie APRN [address] [place] [address] PCP - General Family Medicine 02/03/19 documented as of this encounter
--- OUTSIDE RECORDS SUMMARY | 2024-02-29 19:26 | XMS_ITS | Encounter Summary ---
Author Organization [facility] [place] [address] Care Team Providers Care Senior Business Intelligence Analyst Name Role Phone Ana Gillespie APRN Primary Care Provider [phone] Encounter Details Date Type Department Care Team (Late st Contact Info) Description 01/12/2023 Orders [place] [phone] David Dejesus MD [facility] [place] [address] Peptic stricture of esophagus Social History Tobacco [...] PM EDT Office Visit Cardiology at [address] [phone] Milagros Hernandez MD [facility] [place] [address] Scheduled Procedures Name Priority Associated Diagnoses Date/Ti me EGD, UPPER GI ENDOSCOPY (WRV U 2.09) Peptic stricture of esophagus documented as of this encounter Visit Diagnoses Diagnosis Peptic stricture of esophagus Stricture and stenosis of esophagus documented in this encounter Care Teams Senior Business Intelligence Analyst Relationship Specialty Start Date End Date Ana Gillespie APRN [address] [place] [address] PCP - General Family Medicine 02/03/19 documented as of this encounter
--- OUTSIDE RECORDS SUMMARY | 2024-02-29 19:26 | XMS_ITS | Encounter Summary ---
Author Organization [facility] Address [facility] [place] [address] Care Team Providers Care Nurse Sane Name Role Phone Ana Gillespie APRN Primary Care Provider [phone] Encounter Details Date Type Department Care Team (Late st Contact Info) Description 09/29/2022 Telephone [place] [phone] [facility] [place] [address] Social History Tobacco Use Types Packs/Day Years [...] PM EDT Office Visit Cardiology at [address] [phone] [facility] [place] [address] Scheduled Procedures Name Priority Associated Diagnoses Date/Ti me EGD, UPPER GI ENDOSCOPY (WRV U 2.09) Peptic stricture of esophagus documented as of this encounter Visit Diagnoses Not on filedocumented in this encounter Care Teams Nurse Sane Relationship Specialty Start Date End Date Ana Gillespie APRN [address] [place] [address] PCP - General Family Medicine 02/03/19 documented as of this encounter
--- OUTSIDE RECORDS SUMMARY | 2024-02-29 19:26 | XMS_ITS | Encounter Summary ---
Author Organization [facility] Address [facility] [place] [address] Care Team Providers Care Nurse Intern Name Role Phone Ana Gillespie GRAINING PRESS OPERATOR Primary Care Provider [phone] Encounter Details Date Type Department Care Team (Late st Contact Info) Description 11/18/2022 Orders [place] [phone] Dixie Tadeo MD [facility] [address] Social History Tobacco Use Types Packs/Day Years [...] PM EDT Office Visit Cardiology at [address] [phone] Milagros Hernandez MD [facility] [place] [address] Scheduled Procedures Name Priority Associated Diagnoses Date/Ti me EGD, UPPER GI ENDOSCOPY (WRV U 2.09) Peptic stricture of esophagus documented as of this encounter Visit Diagnoses Not on filedocumented in this encounter Care Teams Nurse Intern Relationship Specialty Start Date End Date Ana Gillespie APRN [address] [place] [address] PCP - General Family Medicine 02/03/19 documented as of this encounter
--- OUTSIDE RECORDS SUMMARY | 2024-02-29 19:26 | XMS_ITS | Encounter Summary ---
Author Organization [facility] [place] [address] Care Team Providers Care Motorboat Operator Name Role Phone Ana Gillespie VAUGHN Primary Care Provider [phone] Encounter Details Date Type Department Care Team (Late Contact Info) Description 10/29/2022 Telephone [place] [phone] Elsie Erickson APRN [facility] [place] [address] Social History Tobacco Use Types Packs/Day Years [...] PM EDT Office Visit Cardiology at [address] [address] Milagros Hernandez MD [facility] [place] [address] Scheduled Procedures Name Priority Associated Diagnoses Date/Ti me EGD, UPPER GI ENDOSCOPY (WRV U 2.09) Peptic stricture of esophagus documented as of this encounter Visit Diagnoses Not on filedocumented in this encounter Care Teams Motorboat Operator Relationship Specialty Start Date End Date Ana Gillespie APRN [address] [place] [address] PCP - General Family Medicine 02/03/19 documented as of this encounter
--- OUTSIDE RECORDS SUMMARY | 2024-02-29 19:26 | XMS_ITS | Encounter Summary ---
Author Organization [facility] Address [facility] [place] [address] Care Team Providers Care Pediatrician Name Role Phone Ana Gillespie APRN Primary Care Provider [phone] Encounter Details Date Type Department Care Team (Late st Contact Info) Description 11/23/2022 Notes [place] [phone] Fannie Conde PA [facility] [place] [address] Social History Tobacco Use Types Packs/Day Years [...] PM EDT Office Visit Cardiology at [address] [phone] iMlagros Hernandez MD [facility] [place] [address] Scheduled Procedures Name Priority Associated Diagnoses Date/Ti me EGD, UPPER GI ENDOSCOPY (WRV U 2.09) Peptic stricture of esophagus documented as of this encounter Visit Diagnoses Diagnosis Neuroleptic-induced parkinsonism Secondary Parkinsonism documented in this encounter Care Teams Pediatrician Relationship Specialty Start Date End Date Ana Gillespie APRN [address] [place] [address] PCP - General Family Medicine 02/03/19 documented as of this encounter
--- OUTSIDE RECORDS SUMMARY | 2024-02-29 19:26 | XMS_ITS | Encounter Summary ---
Author Organization [facility] Address [facility] [place] [address] Care Team Providers Care Student Affairs Dean Name Role Phone Ana Gillespie APRN Primary Care Provider [phone] Encounter Details Date Type Department Care Team (Late st Contact Info) Description 02/26/2023 2:07 PM EDT Anesthesia [place] [phone] Rio Aceves MD [facility] [place] [address] Adrianna Barron MD [facility] [place] [address] Anesthesia Record Procedure Summary Procedure Name Responsible [...] Procedure Summary Date: 02/26/23 Room / Location: [facility] ENDO 2 / [facility] ENDOSCOPY Anesthesia Start: 1407 Anesthesia Stop: 1439 Procedure: EGD,WITH DILATION ESOPHAGUS WITH BALLOON,< 30 MM (WRVU 2.67) (Trunk) Diagnosis: Peptic stricture of esophagus (peptic stricture dilation - within two weeks) Surgeons: David Dejesus MD Responsible Provider: Rio Aceves MD Anesthesia Type: MAC ASA Status: 3 All Anesthesia Providers: Anesthesiologist: Rio Aceves MD FLAKE OR SHRED ROLL OPERATOR: Tapan Simpson CRNA Vitals Value Taken Time BP 115/50 02/26/23 1503 Temp Pulse Resp 16 02/26/23 1435 SpO2 95 % 02/26/23 1505 Pain Level 0 02/26/23 1435 Vitals shown include unfiled device data. Patient Location: PACU/[facility] Level of Consciousness: Awake and Alert [...] G-Tube Check/Change 11/27/[address] [facility] INTERVENTIONL RAD ??? IR G-TUBE PLACEMENT 09/11/2022 IR G-Tube Placement 09/11/[address] [facility] INTERVENTIONL RAD ??? IR SUTURE RELEASE 09/25/2022 IR Suture Release 09/25/[address] [facility] INTERVENTIONL RAD ??? PERCUTANEOUS GASTROSTOMY N/A 09/11/2022 PERCUTANEOUS GASTROSTOMY performed by Aiden Flores MD at [facility] CATY ??? PRO COLONOSCOPY, BIOPSY N/A 03/20/2016 COLONOSCOPY FLEXIBLE, WITH BX performed by David Dejesus MD at [facility] ENDOSCOPY ??? PRO COLONOSCOPY, DIAGNOSTIC N/A 03/01/2020 COLONOSCOPY, DIAGNOSTIC performed by David Dejesus MD at [facility] ENDOSCOPY ??? PRO ENDOSCOPIC US EXAM, ESOPH N/A 03/31/2022 UPPER EUS- ENDOSCOPIC ULTRASOUND performed by David Dejesus MD at [facility] ENDOSCOPY ??? PRO UP GI ENDOSCOPY, BALL DIL, 30MM N/A 12/24/2022 EGD,WITH DILATION ESOPHAGUS WITH BALLOON,< 30 MM (WRVU 2.67) performed by David Dejesus MDat [facility] ENDOSCOPY ??? PRO UP GI ENDOSCOPY, BALL DIL, 30MM N/A 01/12/2023 EGD,WITH DILATION ESOPHAGUS WITH BALLOON,< 30 MM (WRVU 2.67) [facility] ??? PRO UPPER GI ENDOSCOPY, BIOPSY N/A 04/03/2014 UPPER GASTROINTESTINAL ENDOSCOPY,WITH BIOPSY SINGLE OR MULTIPLE performed by David Dejesus MDat [facility] ENDOSCOPY ??? PRO UPPER GI ENDOSCOPY, BIOPSY N/A 03/20/2016 EGD WITH BIOPSY performed by David Dejesus MD at [facility] ENDOSCOPY ??? PRO UPPER GI ENDOSCOPY, BIOPSY N/A 11/22/2018 EGD WITH BIOPSY (WRVU 2.49) performed by David Dejesus MD at [facility] ENDOSCOPY ??? PRO UPPER GI ENDOSCOPY, BIOPSY N/A 03/01/2020 UPPER GASTROINTESTINAL ENDOSCOPY,WITH BIOPSY SINGLE OR MULTIPLE (WRVU 2.49) performed by David Dejesus MD at [facility] ENDOSCOPY ??? PRO UPPER GI ENDOSCOPY, BIOPSY N/A 09/23/2021 EGD WITH BIOPSY (WRVU 2.49) performed by David Dejesus MD at [facility] ENDOSCOPY ??? PRO UPPER GI ENDOSCOPY, BIOPSY N/A 03/31/2022 EGD WITH BIOPSY (WRVU 2.49) performed by David Dejesus MD at [facility] ENDOSCOPY ??? PRO UPPER GI ENDOSCOPY, BIOPSY N/A 07/03/2022 EGD WITH BIOPSY (WRVU 2.49) performed by David Dejesus MD at [facility] ENDOSCOPY ??? PRO UPPER GI ENDOSCOPY, DIAGNOSTIC N/A 04/03/2014 EGD, UPPER GI ENDOSCOPY performed by David Dejesus MD at [facility] ENDOSCOPY ??? PRO UPPER GI ENDOSCOPY, DIAGNOSTIC N/A 03/01/2020 EGD, UPPER GI ENDOSCOPY performed by David Dejesus MD at [facility] ENDOSCOPY ??? PRO UPPER GI ENDOSCOPY, DIAGNOSTIC N/A 09/09/2022 EGD, UPPER GI ENDOSCOPY (WRVU 2.09) performed by Ayo Russ MD at [facility] MAIN OR Social History Tobacco Use ??? [...] with patient and spouse. Plan discussed with FLAKE OR SHRED ROLL OPERATOR and attending. Anesthesia Screening documented in this encounter Plan of Treatment Upcoming Encounters Date Type Department Care Team (Late st Contact Info) Description 03/10/2024 4:00 PM EDT Office Visit Cardiology at [address] [address] Milagros Hernandez MD [facility] [place] [address] Scheduled Procedures Name Priority Associated Diagnoses Date/Ti [...] hr documented in this encounter Care Teams Student Affairs Dean Relationship Specialty Start Date End Date Ana Gillespie APRN [address] [place] [address] PCP - General Family Medicine 02/03/19 documented as of this encounter
--- OUTSIDE RECORDS SUMMARY | 2024-02-29 19:26 | XMS_ITS | Encounter Summary ---
Author Organization [facility] Address [facility] [place] [address] Care Team Providers Care Wide Area Network Administrator Name Role Phone Ana Gillespie VAUGHN Primary Care Provider [phone] Encounter Details Date Type Department Care Team (Latest Contact Info) Description 12/24/2022 9:38 AM EDT - 12/24/2022 1:43 PM EDT Hospital En[place] [phone] David Dejesus MD [facility] [place] [address] Discharge Disposition: Home Social History Tobacco Use [...] 180 tablet 3 10/20/2021 Blood Sugar Diagnostic ([employer] ULTRA TEST) StripIndications:Typ e 2 diabetes mellitus, [...] meter kit. 1 each 0 12/14/2014 Insulin [place], Disposable, (BD INSULIN PEN NEEDLE UF MINI) 31 x 07/23 NeedleIndications:Di abetes mellitus type 2, uncontrolled [address] [facility] [...] glucose meter kit. 1 each 0 Insulin [place], Disposable, (BD INSULIN PEN NEEDLE UF MINI) 31 x 3/16 Needle 1 Device by Misc.(Non-Drug; Combo Route) route 3 times daily as needed. 100 each 11 PHYSICAL EXAM: Blood pressure 110/57, pulse 62, temperature 36.2 ??C (97.2 ??F), temperature source Tympanic, [id number] %. GEN: Alert, cooperative. Pleasant. In NAD [...] PM EDT Office Visit Cardiology at [address] [address] Milagros Hernandez MD [facility] [place] [address] Scheduled Procedures Name Priority Associated Diagnoses Date/Ti me EGD, UPPER GI ENDOSCOPY (WRV U 2.09) Peptic stricture of esophagus documented as of this encounter Procedures Procedure Name Priority Date/Time Associated Diagnosis Comments Up Gi Endoscopy, Rick Chavez, 30Mm ([id number]) 12/24/2022 11:56 AM EDT Farrell's esophagus without dysplasia UPPER GI ENDOSCOPY Routine 12/24/2022 11 :46 AM EDT POCT GLUCOSE Routine 12/24/2022 11:02 AM EDT documented in this encounter Results * UPPER GI ENDOSCOPY (12/24/2022 11:46 AM EDT) UPPER GI ENDOSCOPY [facility] Endoscopy Procedure Date: 12/24/2022 11:46 AM ? Patient Name: Jennifer Irving ? Date of : 1960 ? Age: 62 ? Order #: [id number] ? Instrument Name: [id number] ? Procedure: ? Upper GI endoscopy Indications: [...] GENERAL SURGICAL ORD ERABLES Performing Organization Address City/[facility] Co de Phone Number [employer] * POCT Glucose (12/24/2022 11:02 AM EDT) Glucose, POC 123 65 - 199 mg/dL [facility] Comment: Supplemental ranges: <140 mg/dL before meals <180 mg/dL all other times of the day Blood 12/24/2022 11:0 2 AM EDT 12/24/2022 11:02 AM EDT David Dejesus MD POINT OF CARE TEST ORDERABLES Performing Organization Address City/[facility] Co de Phone Number [facility] [place] [address] documented in this encounter Visit Diagnoses Not [...] CRNA) documented in this encounter Care Teams Wide Area Network Administrator Relationship Specialty Start Date End Date Ana Gillespie APRN [address] [place] [address] PCP - General Family Medicine 02/03/19 documented as of this encounter
--- OUTSIDE RECORDS SUMMARY | 2024-02-29 19:26 | XMS_ITS | Encounter Summary ---
Author Organization [facility] Address [facility] [place] [address] Care Team Providers Care Route Delivery Supervisor Name Role Phone Ana Gillespie SCRAPPER Primary Care Provider [phone] Reason for Visit * Reason Onset Date Comments Medication Refill 10/22/2022 Encounter Details Date Type Department Care Team (Late st Contact Info) Description 10/22/2022 Refill [place] [phone] David Dejesus MD [facility] [place] [address] Social History Tobacco Use Types Packs/Day Years [...] PM EDT Office Visit Cardiology at [address] [phone] Milagros Hernandez MD [facility] [place] [address] Scheduled Procedures Name Priority Associated Diagnoses Date/Ti me EGD, UPPER GI ENDOSCOPY (WRV U 2.09) Peptic stricture of esophagus documented as of this encounter Visit Diagnoses Not on filedocumented in this encounter Care Teams Route Delivery Supervisor Relationship Specialty Start Date End Date Ana Gillespie APRN [address] [place] [address] PCP - General Family Medicine 02/03/19 documented as of this encounter
--- OUTSIDE RECORDS SUMMARY | 2024-02-29 19:26 | XMS_ITS | Encounter Summary ---
Author Organization [facility] Address [facility] [place] [address] Care Team Providers Care Irrigation Equipment Remover Name Role Phone Ana Gillespie VAUGHN Primary Care Provider [phone] Encounter Details Date Type Department Care Team (Late st Contact Info) Description 01/12/2023 7:30 AM EDT - 01/12/2023 8:00 AM EDT [place] [phone] David Dejesus MD [facility] [place] [address] EGD,WITH DILATION ESOPHAGUS WITH BALLOON,< 30 MM [...] the day after the procedure, use an nwyo-uqe-nvoemhp spray to numb your throat. Sucking on [...] occurs, please contact your Doctor. Please call [phone] before 8pm Mon-Fri with problems, questions or concerns. If you call after 8pm or on weekends, call the Hospital at [phone] and ask to speak to the Consumer Sales Representative non profit financial controller and the retread mold operator will contact that person for you. [...] Where can you learn more? [facility] View your After Visit Summary and more online at [email or web address] If you would like to provide feedback [...] cost to you. Content Version: 12.2 ?? 4405-9630 [employer]. Care instructions adapted under license by [facility]. If you have questions about a medical condition or this instruction, always ask your healthcare professional. [employer] disclaims any warranty or liability for your [...] strips. 300 each 3 12/14/2014 Blood-Glucose Meter (MohiveTOUCH ULTRA2) KitIndications:Type 2 diabetes mellitus, uncontrolled by [...] PM EDT Office Visit Cardiology at [address] [address] Milagros Hernandez MD [facility] [place] [address] Scheduled Procedures Name Priority Associated Diagnoses Date/Ti me EGD, UPPER GI ENDOSCOPY (WRV U 2.09) Peptic stricture of esophagus documented as of this encounter Procedures Procedure Name Priority Date/Time Associated Diagnosis Comments Up Gi Endoscopy, Ball Dil, 30Mm (38844) 01/12/2023 8:06 AM EDT Peptic stricture of esophagus POCT GLUCOSE Routine 01/12/2023 7:31 AM EDT documented in this encounter Results * POCT Glucose (01/12/2023 7:31 AM EDT) Glucose, POC 115 65 - 199 mg/dL [facility] Comment: Supplemental ranges: <140 mg/dL before meals <180 mg/dL all other times of the day Blood 01/12/2023 7:31 AM EDT 01/12/2023 7:31 AM EDT David Dejesus MD POINT OF CARE TEST ORDERABLES [facility] [place] [address] documented in this encounter Visit Diagnoses Diagnosis [...] CRNA) documented in this encounter Care Teams Irrigation Equipment Remover Relationship Specialty Start Date End Date Ana Gillespie APRN [address] [place] [address] PCP - General Family Medicine 02/03/19 documented as of this encounter
--- OUTSIDE RECORDS SUMMARY | 2024-02-29 19:26 | XMS_ITS | Encounter Summary ---
[place] [address] Care Team Providers Care Genetics Nurse Name Role Phone Ana Gillespie APRN Primary Care Provider [phone] Reason for Referral * Consultation (Routine) - Closed Specialty Diagnoses / Procedures Referred By Esperanza t Referred To Contact Diagnoses Gastrojejunostomy tube status Ana Gillespie APRN [address] [place] [address] [facility] [address] [place] [phone] Referral ID Status Reason Start Date Expiration Date V isits Requested Visits Authorized [id number] Closed Continuity of Care PCP Updated and/or Approved 11/17/2022 11/17/2023 12 12 Encounter Details Date Type Department Care Team (Latest Contact Info) Description 11/17/2022 Transcribe Orders eDH Incoming Referrals [phone] Ana Gillespie APRN [address] [place], [place] [id number] Gastrojejunostomy tube status Social History Tobacco Use [...] PM EDT Office Visit Cardiology at [address] [address] Milagros Hernandez MD [facility] [place] [address] Scheduled Procedures Name Priority Associated Diagnoses Date/Ti me EGD, UPPER GI ENDOSCOPY (WRV U 2.09) Peptic stricture of esophagus Scheduled Referrals Name Type Priority Associated Diagnoses Orde r Schedule Referral to Nutrition Services Outpatient Referral Routine Gastrojejunostomy tube status Ordered: 11/17/2022 documented as of this encounter Visit Diagnoses Diagnosis Gastrojejunostomy tube status Intestinal bypass or anastomosis status documented in this encounter Care Teams Genetics Nurse Relationship Specialty Start Date End Date Ana Gillespie APRN [address] [place] [address] PCP - General Family Medicine 02/03/19 documented as of this encounter
--- OUTSIDE RECORDS SUMMARY | 2024-02-29 19:26 | XMS_ITS | Encounter Summary ---
Author Organization [facility] [place] [address] Care Team Providers Care Drafter Electrical Name Role Phone Ana Gillespie MICROWAVE REMOTE SENSING SCIENTIST Primary Care Provider [phone] Reason for Visit * Reason Onset Date Comments Medication Refill 11/13/2022 Encounter Details Date Type Department Care Team (Late st Contact Info) Description 11/13/2022 Refill [place] [address] Alyce Vogt RN Social History Tobacco Use [...] PM EDT Office Visit Cardiology at [address] [phone] Milagros Hernandez MD [facility] [place] [address] Scheduled Procedures Name Priority Associated Diagnoses Date/Ti me EGD, UPPER GI ENDOSCOPY (WRV U 2.09) Peptic stricture of esophagus documented as of this encounter Visit Diagnoses Not on filedocumented in this encounter Care Teams Drafter Electrical Relationship Specialty Start Date End Date Ana Gillespie APRN [address] [place] [address] PCP - General Family Medicine 02/03/19 documented as of this encounter
--- OUTSIDE RECORDS SUMMARY | 2024-02-29 19:26 | XMS_ITS | Encounter Summary ---
Author Organization [facility] [place] [address] Care Team Providers Care Estimator Name Role Phone Ana Gillespie VAUGHN Primary Care Provider [phone] Encounter Details Date Type Department Care Team (Latest Contact Info) Description 10/16/2022 Unscheduled Encounter Endocrinology at [facility] [place] [phone] Elsie Erickson APRN [facility] [place] [address] Type 2 diabetes mellitus with hyperglycemia, with [...] PM EDT Office Visit Cardiology at [address] [address] Milagros Hernandez MD [facility] [place] [address] Scheduled Procedures Name Priority Associated Diagnoses Date/Ti me EGD, UPPER GI ENDOSCOPY (WRV U 2.09) Peptic stricture of esophagus documented as of this encounter Visit Diagnoses Diagnosis Type 2 diabetes mellitus with hyperglycemia, with long-term current use of insulin documented in this encounter Care Teams Estimator Relationship Specialty Start Date End Date Ana Gillespie APRN [address] [place] [address] PCP - General Family Medicine 02/03/19 documented as of this encounter
--- OUTSIDE RECORDS SUMMARY | 2024-02-29 19:26 | XMS_ITS | Encounter Summary ---
Author Organization [facility] [place] [place] [address] Care Team Providers Care Asphalt Paver Operator Name Role Phone Ana Gillespie VAUGHN Primary Care Provider [phone] Encounter Details Date Type Department Care Team (Late st Contact Info) Description 11/13/2022 Telephone [place] [address] Alyce Vogt RN Social History [...] PM EDT Office Visit Cardiology at [address] [phone] Milagros Hernandez MD [facility] [place] [address] Scheduled Procedures Name Priority Associated Diagnoses Date/Ti me EGD, UPPER GI ENDOSCOPY (WRV U 2.09) Peptic stricture of esophagus documented as of this encounter Visit Diagnoses Not on filedocumented in this encounter Care Teams Asphalt Paver Operator Relationship Specialty Start Date End Date Ana Gillespie APRN [address] [place] [address] PCP - General Family Medicine 02/03/19 documented as of this encounter
--- OUTSIDE RECORDS SUMMARY | 2024-02-29 19:26 | XMS_ITS | Encounter Summary ---
Author Organization [facility] [place] [address] Care Team Providers Care Squad Boss Name Role Phone Ana Gillespie VAUGHN Primary Care Provider [phone] Encounter Details Date Type Department Care Team (Late st Contact Info) Description 01/27/2023 Telephone [place] [phone] Parris Maravilla Social History Tobacco Use Types [...] PM EDT Office Visit Cardiology at [address] [phone] Milagros Hernandez MD [facility] [place] [address] Scheduled Procedures Name Priority Associated Diagnoses Date/Ti me EGD, UPPER GI ENDOSCOPY (WRV U 2.09) Peptic stricture of esophagus documented as of this encounter Visit Diagnoses Not on filedocumented in this encounter Care Teams Squad Boss Relationship Specialty Start Date End Date Ana Gillespie APRN [address] [place] [address] PCP - General Family Medicine 02/03/19 documented as of this encounter
--- OUTSIDE RECORDS SUMMARY | 2024-02-29 19:26 | XMS_ITS | Encounter Summary ---
Author Organization [facility] Address [facility] [place] [address] Care Team Providers Care Spikemaking Supervisor Name Role Phone Ana Gillespie APRN Primary Care Provider [phone] Reason for Visit * Reason Onset Date Comments Disability Paperwork 10/09/2022 Completed L arsenio Term Care Medicaid Intake Interview with Jennifer over the phone with Nery Potter from [place] [employer] [facility] Encounter Details Date Type Department Care Team (Late st Contact Info) Description 10/09/2022 [place] [address] Alicia Gillis Disability Paperwork (Completed Vice President Investor Relations Care Medicaid Intake Interview with Jennifer over the phone with Nery Potter from [place] [employer] [facility] ) Social History Tobacco Use Types Packs/Day [...] PM EDT Office Visit Cardiology at [address] [phone] Milagros Hernandez MD [facility] [place] [address] Scheduled Procedures Name Priority Associated Diagnoses Date/Ti me EGD, UPPER GI ENDOSCOPY (WRV U 2.09) Peptic stricture of esophagus documented as of this encounter Visit Diagnoses Not on filedocumented in this encounter Care Teams Spikemaking Supervisor Relationship Specialty Start Date End Date Ana Gillespie APRN [address] [place] [address] PCP - General Family Medicine 02/03/19 documented as of this encounter
--- OUTSIDE RECORDS SUMMARY | 2024-02-29 19:26 | XMS_ITS | Encounter Summary ---
Author Organization [facility] [place] [address] Care Team Providers Care Applications Manager Name Role Phone Ana Gillespie APRN Primary Care Provider [phone] Encounter Details Date Type Department Care Team [...] PM EDT Office Visit Cardiology at [address] [address] Milagros Hernandez MD [facility] [place] [address] Scheduled Procedures Name Priority Associated Diagnoses Date/Ti me EGD, UPPER GI ENDOSCOPY (WRV U 2.09) Peptic stricture of esophagus documented as of this encounter Visit Diagnoses Not on filedocumented in this encounter Care Teams Applications Manager Relationship Specialty Start Date End Date Ana Gillespie APRN [address] [place] [address] PCP - General Family Medicine 02/03/19 documented as of this encounter
--- OUTSIDE RECORDS SUMMARY | 2024-02-29 19:26 | XMS_ITS | Encounter Summary ---
Author Organization [facility] Address [facility] [place] [address] Care Team Providers Care Hand Laminator Name Role Phone Ana Gillespie VAUGHN Primary Care Provider [phone] Encounter Details Date Type Department Care Team (Late st Contact Info) Description 12/21/2022 Telephone [place] [phone] Jessica Beckman Social History Tobacco Use Types [...] PM EDT Office Visit Cardiology at [address] [phone] Milagros Hernandez MD [facility] [place] [address] Scheduled Procedures Name Priority Associated Diagnoses Date/Ti me EGD, UPPER GI ENDOSCOPY (WRV U 2.09) Peptic stricture of esophagus documented as of this encounter Visit Diagnoses Not on filedocumented in this encounter Care Teams Hand Laminator Relationship Specialty Start Date End Date Ana Gillespie APRN [address] [place] [address] PCP - General Family Medicine 02/03/19 documented as of this encounter
--- OUTSIDE RECORDS SUMMARY | 2024-02-29 19:26 | XMS_ITS | Encounter Summary ---
Author Organization [facility] [place] [address] Care Team Providers Care Labor Relations Representative Name Role Phone Ana Gillespie TRANSPORT SPECIALIST Primary Care Provider [phone] Encounter Details Date Type Department Care Team (Late st Contact Info) Description 12/10/2022 Telephone [place] [address] Jessica Beckman Social History Tobacco [...] PM EDT Office Visit Cardiology at [address] [phone] Milagros Hernandez MD [facility] [place] [address] Scheduled Procedures Name Priority Associated Diagnoses Date/Ti me EGD, UPPER GI ENDOSCOPY (WRV U 2.09) Peptic stricture of esophagus documented as of this encounter Visit Diagnoses Not on filedocumented in this encounter Care Teams Labor Relations Representative Relationship Specialty Start Date End Date Ana Gillespie APRN [address] [place] [address] PCP - General Family Medicine 02/03/19 documented as of this encounter
--- OUTSIDE RECORDS SUMMARY | 2024-02-29 19:26 | XMS_ITS | Encounter Summary ---
Author Organization [facility] Address [facility] [place] [address] Care Team Providers Care Walnut Dehydrator Operator Name Role Phone Jose MiguelAna VAUGHN Primary Care Provider [phone] Encounter Details Date Type Department Care Team (Late st Contact Info) Description 10/06/2022 Telephone [place] [phone] Elsie Erickson APRN [facility] DR [place] [address] Social History Tobacco Use Types Packs/Day Years [...] not had tube feeds since last week, [facility] having computer system issues so unable to ship supplies. Campos has been using Ensure boluses 2 x daily as he was directed. He has not noted elevation of her blood sugars with this. BGs in 120s-140s. [facility] TF once he has this back. He has no questions and we will check back in the next few days. documented in this encounter Plan of Treatment Upcoming Encounters Date Type Department Care Team (Late st Contact Info) Description 03/10/2024 4:00 PM EDT Office Visit Cardiology at [address] [address] Milagros Hernandez MD [facility] [place] [address] Scheduled Procedures Name Priority Associated Diagnoses Date/Ti me EGD, UPPER GI ENDOSCOPY (WRV U 2.09) Peptic stricture of esophagus documented as of this encounter Visit Diagnoses Not on filedocumented in this encounter Care Teams Walnut Dehydrator Operator Relationship Specialty Start Date End Date Ana Gillespie APRN [address] [place] [address] PCP - General Family Medicine 02/03/19 documented as of this encounter
--- OUTSIDE RECORDS SUMMARY | 2024-02-29 19:26 | XMS_ITS | Encounter Summary ---
[place] [address] Care Team Providers Care Banana Room Cutter Name Role Phone Ana Gillespie VAUGHN Primary Care Provider [phone] Encounter Details Date Type Department Care Team (Late Contact Info) Description 01/14/2023 Telephone [place] [address] Juice Maxwell RN Social History [...] PM EDT Office Visit Cardiology at [address] [address] Milagros Hernandez MD [facility] [place] [address] Scheduled Procedures Name Priority Associated Diagnoses Date/Ti me EGD, UPPER GI ENDOSCOPY (WRV U 2.09) Peptic stricture of esophagus documented as of this encounter Visit Diagnoses Not on filedocumented in this encounter Care Teams Banana Room Cutter Relationship Specialty Start Date End Date Ana Gillespie APRN [address] [place] [address] PCP - General Family Medicine 02/03/19 documented as of this encounter
--- OUTSIDE RECORDS SUMMARY | 2024-02-29 19:27 | XMS_ITS | Encounter Summary ---
[place] [address] Care Team Providers Care Optical Engineering Manager Name Role Phone Ana Gillespie VAUGHN Primary Care Provider [phone] Reason for Referral * Diagnostic Test (Routine) - Closed Specialty Diagnoses / Procedures Referred By Esperanza rodríguez Referred To Contact Radiology Diagnoses Gastrostomy tube in place Procedures IR Suture Release Moustapha Hart MD [facility] [place] [address] [place] [address] Referral ID Status Reason Start Date Expiration Date V isits Requested Visits Authorized [id number] Closed Specialty Service Requested 09/11/2022 03/14/2024 1 1 Reason for Visit * Auth/Cert (Routine) Specialty Diagnoses / Procedures Referred By Esperanza rodríguez Referred To Contact Diagnoses Shock CARDIOGENIC PULMONARY EDEMA Procedures ER Carlos Melton MD [facility] [place] [address] [facility] Referral ID Status Reason Start Date Expiration Date Visits Re quested Visits Authorized [id number] 1 1 Encounter Details Date Type Department Care Team (Latest Contact Info) Description 09/25/2022 9:00 AM EDT - 09/25/2022 11:59 PM EDT Hospital En[place] [address] Discharge [...] 180 tablet 3 10/20/2021 Blood Sugar Diagnostic (Paperless Transaction ManagementTOUCH ULTRA TEST) StripIndications:Typ e 2 diabetes mellitus, [...] meter kit. 1 each 0 12/14/2014 Insulin [place], Disposable, (BD INSULIN PEN NEEDLE UF MINI) 31 x 07/23 NeedleIndications:Di abetes mellitus type 2, uncontrolled 1 Device by [facility].(Non-Drug; Combo Route) route 3 times [...] to AVS in admission encounter and below. [facility] INTERVENTIONAL RADIOLOGY NURSES NOTE FOR GASTROPEXY [...] is during regular office hours, please call [phone]. If it is after regular office hours, or on weekends or holidays, please call [phone] and ask to speak to the Technology Resource Teacher client relationship manager for Interventional Radiology. Revised 02/23/19 documented in this encounter Plan of Treatment Upcoming Encounters Date Type Department Care Team (Late st Contact Info) Description 03/10/2024 4:00 PM EDT Office Visit Cardiology at [address] [address] Milagros Hernandez MD [facility] [place] [address] Scheduled Procedures Name Priority Associated Diagnoses Date/Ti [...] done. Moustapha Hart MD IMG IR ORDERABLES [place], [place] documented in this encounter Visit Diagnoses Diagnosis Gastrostomy tube in place documented in this encounter Care Teams Optical Engineering Manager Relationship Specialty Start Date End Date Ana Gillespie APRN [address] [place] [address] PCP - General Family Medicine 02/03/19 documented as of this encounter
--- OUTSIDE RECORDS SUMMARY | 2024-02-29 19:31 | XMS_ITS | Encounter Summary ---
Author Organization [facility] Address [facility] [place] [address] Care Team Providers Care Meat Service Team Member Name Role Phone Chris Stanley VAUGHN Primary Care Provider [phone] Reason for Referral * Home Health Care (Routine) - Denied Specialty Diagnoses / Procedures Referred By Esperanza rodríguez Referred To Contact Diagnoses Neuroleptic-induced parkinsonism Jose Mcleod MD [facility] [place] [address] [address] Referral ID Status Reason Start Date Expiration Date V isits Requested Visits Authorized [id number] Denied Consult, Test & Treat 09/25/2022 09/25/2023 999 0 * Diagnostic Test (Routine) - Closed Specialty Diagnoses / Procedures Referred By Esperanza rodríguez Referred To Contact Radiology Diagnoses Gastrostomy tube in place Procedures IR Suture Release Moustapha Hart MD [facility] [place] [address] [facility] [place] [address] Referral ID Status Reason Start Date Expiration Date V isits Requested Visits Authorized [id number] Closed Specialty Service Requested 09/11/2022 03/14/2024 1 1 * Consultation (Routine) - Canceled Specialty Diagnoses / Procedures Referred By Contac t Referred To Contact Cardiology Diagnoses Stress-induced cardiomyopathy Stress cardiomyopathy. Jigar Streeter MD [facility] [place] [address] [facility] Cardiology [address] [place] [id number] Referral ID Status Reason Start Date Expiration Date V isits Requested Visits Authorized [id number] Canceled Consult, Test & Treat 09/25/2022 09/25/2023 1 1 Reason for Visit * Auth/Cert (Routine) Specialty Diagnoses / Procedures Referred By Contac t Referred To Contact Diagnoses Shock CARDIOGENIC PULMONARY EDEMA Procedures ER IPI Carlos Terry MD [facility] [address] [facility] Referral ID Status Reason Start Date Expiration Date Visits Re quested Visits Authorized [id number] 1 1 Encounter Details Date Type Department Care Team (Late st Contact Info) Description 08/14/2022 11:11 PM EDT - 09/25/2022 11:21 AM EDT Hospital Encounter Medical Specialites Unit Level 1 [place] [address] Carlos Terry MD [facility] CARDIOLOGY [place] [id number] Milagros Hernandez MD [facility] [place] [address] Roland Pruett MD [facility] [place] [address] Alfonso Navarrete MD [facility] [place] [address] Tenisha Sandy MD [facility] [place] [address] [place] [address] [place] [address] [place] [address] [place] [address] [place] [address] [place] [address] [place] [address] Shock; Closed fracture of neck of left [...] deficiency anemia,??GERD??c/b??esophagitis &??Farrell's esophagus??presenting in transfer from [facility], suspected to be in cardiogenic shock and [...] escalated to 4L NC. On arrival to [facility], the patient was given further doses of [...] (80 lasix) & dobutamine withconsequent transfer to [facility]. ?? On arrival, the patient was requiring requiring roughly NE 30, dobutamine 2.5, and epinephrine of 5. Hospital Course: Ishan Irving was admitted to the Cardiology Service on 08/14/2022 and transferred to [facility] on 08/30/2022. The following acute and chronic medical issues were identified during this phase of their hospitalization, and managed as summarized below by problem: #Type II NSTEMI #Mixed cardiogenic and distributive shock #Acute HFrEF 2/2 stress cardiomyopathy Following admission to the CV, a Aguilar-Isabelle catheter was placed for monitoring of hemodynamic [...] depressed mental status, she was extubated to [facility] on 08/23, which she tolerated well. #Bipolar Disorder #Hospital Associated Delirium During her [facility] stay, Ishan remained only intermittently responsive, occasionally moving in response to pain but quite sedated. Neurology was consulted and a workup including CT Head, MRI, and EEG was performed without demonstrating abnormality. Once extubated she remained with some AMS, thought to be secondary to hospital-associated delirium. Patient transferred to [facility] team on 08/30 with stable cardiac condition but ongoing limitations in her responsiveness and demonstrating marked psychomotor slowing. Psychiatry was consulted and patient was started on bupropion for bipolar disorder associated depression which resulted in a dramatic improvement in psychomotor slowing [id number] hours. Her mental status improved significantly over her course and she was discharged fully oriented. She was continued on her home Depakote and Seroquel. #History of Drug-Induced Parkinsonism #Severe Oropharyngeal Dysphagia #Distal Esophageal Dysmotility #GERD complicated by Farrell's Esophagus and Esophagitis Ishan demonstrated severe dysphagia on an MBS obtained by PLAY BACK OPERATOR after extubation. While it was suspected initially [...] who have questions please contact the health animal care taker that requested your imaging first. Electronically signed by: Davi Terry MD, [facility] ([phone]), at 08/15/2022 3:53 AM XR Abdomen 1 view (Generic) (Exam End: 08/15/2022 8:33 AM) Narrative EXAMINATION: XR ABDOMEN 1 VIEW (GENERIC) CLINICAL HISTORY: 62 yo F w/ shock, confirm NG tube placement TECHNIQUE: Single radiograph of the lower chest and upper abdomen for purposes of enteric tube verification and otherwise nondiagnostic. The lower abdomen is excluded from srfvf-sq-qvtj. COMPARISON: Abdominal radiograph 08/15/2022 FINDINGS: * An [...] who have questions please contact the health animal care taker that requested your imaging first. Electronically signed by: Liliane Adams MD, [facility] ([phone]), at 08/15/2022 9:05 AM XR Chest One View (Exam End: 08/15/2022 1:14 AM) Narrative EXAMINATION: XR CHEST ONE VIEW CLINICAL HISTORY: confirm Aguilar placement TECHNIQUE: 1 view of the chest [...] who have questions please contact the health animal care taker that requested your imaging first. Electronically signed by: Davi Terry MD, [facility] ([phone]), at 08/15/2022 3:55 AM XR Abdomen 1 [...] who have questions please contact the health animal care taker that requested your imaging first. Electronically signed by: Davi Terry MD, [facility] ([phone]), at 08/15/2022 6:41 AM XR Chest One [...] who have questions please contact the health animal care taker that requested your imaging first. Electronically signed by: Alfonso Aadms MD, [facility] ([phone]), at 08/16/2022 10:[address] Head wo [...] who have questions please contact the health animal care taker that requested your imaging first. Electronically signed by: Moustapha Correa MD, [facility] ([phone]), at 08/16/2022 11:19 PM XR Abdomen 1 [...] who have questions please contact the health animal care taker that requested your imaging first. Head wo [...] who have questions please contact the health animal care taker that requested your imaging first. Electronically signed by: Antonio Jordan MD, [facility] ([phone]), at 08/18/2022 3:18 PM XR Chest One View (Exam End: 08/19/2022 12:30 PM) Narrative EXAMINATION: XR CHEST ONE VIEW CLINICAL HISTORY: febrile, altered, leukocytosis TECHNIQUE: 1 view of the chest ; AP portable 20 degrees upright COMPARISON: Chest radiograph 08/16/2022 FINDINGS: ET tube tip measures 3.0 cm above consuelo. Enteric catheter descends below the diaphragm and below the rdoxa-sm-wtfy. Interval removal of right IJ approach PA [...] who have questions please contact the health animal care taker that requested your imaging first. Electronically signed by: Alan De Guzman MD, [facility] ([phone]), at 08/19/2022 3:14 PM MRI Brain wo [...] who have questions please contact the health animal care taker that requested your imaging first. Electronically signed by: Jagdeep Lee MD, [facility] ([phone]), at 08/20/2022 3:34 AM XR Chest for [...] who have questions please contact the health animal care taker that requested your imaging first. Electronically signed by: Alan De Guzman MD, [facility] ([phone]), at 08/19/2022 4:[address] Hip w [...] who have questions please contact the health animal care taker that requested your imaging first. Electronically signed by: Aicha Chowdhury MD, [facility] ([phone]), at 08/21/2022 9:[address] Chest w [...] the diaphragm with tip not included the ckwta-lz-llse. There is some wall thickening of the [...] the duodenum, not fully included in the whcfj-wq-mzao. Skeletal structures: No acute osseous findings. No [...] who have questions please contact the health animal care taker that requested your imaging first. Electronically signed by: Jagdeep Lee MD, [facility] ([phone]), at 08/21/2022 6:56 AM IR Ultrasound in [...] who have questions please contact the health animal care taker that requested your imaging first. Electronically signed by: Viktor Cervantes MD, [facility] ([phone]), at 08/22/2022 12:43 PM XR Pelvis (Generic) [...] who have questions please contact the health animal care taker that requested your imaging first. Electronically signed by: Richard Billings MD, [facility] ([phone]), at 08/22/2022 10:[address] Angiogram Coronary [...] who have questions please contact the health animal care taker that requested your imaging first. Electronically signed by: Arlette Mays MD, [facility] ([phone]), at 08/27/2022 11:[address] Chest wo [...] who have questions please contact the health animal care taker that requested your imaging first. Electronically signed by: MINH QUIROGA MD, [facility] ([phone]), at 08/27/2022 10:48 AM XR Fluoro Barium [...] There is delayed elevation of the larynx long-term between the vallecula and piriform sinuses. It [...] who have questions please contact the health animal care taker that requested your imaging first. Electronically signed by: Aron Billings MD, [facility] ([phone]), at 08/31/2022 12:02 PM XR Fluoro Barium [...] who have questions please contact the health animal care taker that requested your imaging first. Electronically signed by: Alfonso Adams MD, [facility] ([phone]), at 09/04/2022 10:57 AM XR Abdomen 1 [...] who have questions please contact the health animal care taker that requested your imaging first. Electronically signed by: Jagdeep Lee MD, [facility] ([phone]), at 09/04/2022 10:35 PM XR Chest One [...] who have questions please contact the health animal care taker that requested your imaging first. Electronically signed by: Jagdeep Lee MD, [facility] ([phone]), at 09/04/2022 10:35 PM XR Chest One [...] now extending below the diaphragm and included gikqt-dp-byfe. Similar appearance of mild elevation of the right hemidiaphragm with streaky right basilar opacities and some mild patchy opacities at the left lung base. No new focal airspace opacity. No appreciable pleural fluid collection. No pneumothorax. Cardiomediastinal silhouette is unchanged. No evidence of pulmonary edema. No acute osseous abnormality. Impression 1. Reposition enteric tube now extending below the diaphragm and included hdpbx-lr-nqon. 2. Similar appearance of elevated right hemidiaphragm and linear/patchy bibasilar opacities which may represent atelectasis or possibly aspiration. Thank you for letting us participate in the care of this patient. If you are a health care provider and have any questions regarding this report, please contact the number below. For patients who have questions please contact the health animal care taker that requested your imaging first. Electronically signed by: AUDI PERDOMO MD, [facility] ([phone]), at 09/05/2022 3:43 PM XR Abdomen 1 [...] who have questions please contact the health animal care taker that requested your imaging first. Electronically signed by: Camille Garica MD, [facility] ([phone]), at 09/10/2022 1:16 AM IR G-Tube Placement [...] barrier technique was used throughout. ??A 4 Polish glide catheter??was placed??as a??nasoenteric tube??under fluoroscopy with [...] who have questions please contact the health animal care taker that requested your imaging first. Film Library- [...] Ultra-Fine Mini Pen Needle 1 Device by [facility] [...] Center 11/12/2022 11:30 AM Dixie Tadeo MD [facility] ENDO [facility] Date and Time Provider and Specialty Location Need to be scheduled Chris Stanley APRN , PCP [address] / [facility] [address] Your Inpatient Doctor(s) at [facility]: Jose Mcleod MD Your Primary Care Provider: Chris Stanley APRN [address] / [facility] [address] For questions regarding this document or issues relating to this hospitalization on the Medical Service, please contact your inpatient physician through the [facility] Engra[employer] App[employer]ice [employer] . Issues afterhours and on weekends will [...] or its attachments. INTERVENTIONAL RADIOLOGY PHONE NUMBERS [phone] ___X___ If you have a NON Low profile feeding tube, call with any questions or concerns. During regular office hours call: [phone]. If it is after regular office hours, weekends or holidays, please call [phone] and ask to speak to the Dispatcher Service Chief protection chief industrial plant for Interventional Radiology. Revised 02/23/19 YOU ARE [...] avoid another low BG in the future. [facility] INTERVENTIONAL RADIOLOGY NURSES NOTE FOR GASTROPEXY [...] is during regular office hours, please call [phone]. If it is after regular office hours, or on weekends or holidays, please call [phone] and ask to speak to the Dispatcher Service Chief protection chief industrial plant for Interventional Radiology. Revised 02/23/19 Future Appointments and Orders Future Appointments and Orders Future Appointments Provider Department Dept Phone 11/12/2022 11:30 AM Dixie Tadeo MD Endocrinology at [facility] Arrive at: Media Buyer Area 3A [phone] Future Orders Complete By Expires XR Pelvis and Hip 2 Views Left [10759 Custom] 09/09/2022 (Approximate) 03/11/2023 Process Instructions: Scheduling Instructions: Comments: Questions: Where will study be performed?: [facility] Radiology Portable exam?: Reason for exam and clinical history: s/p perc fixation L FNF @[facility], being referred to arthroplasty team for consideration of KYUNG Clinical information / fam questions for radiologist: Stat read required?: Date of injury if applicable: Requested Time: Referral for Home Tube feeds [CGW1857 CPT(R)] As directed Process Instructions: Scheduling Instructions: Comments: Ishan Irving [address] [place] [phone] (home) - Telephone Information: Medicaid Yes/No Medicaid Number: [id number] Narrative: Patient has a feeding tube and requires tube feedings and supplies necessary to maintainnutritional support . VENDOR: [employer] Supporting Diagnosis: esophageal stricture Length of [...] admission to Home Health. [address] [facility] [address] Date of : 1960 Inpatient DOCUMENTATION FOR VNA SERVICES (INCLUDING THOSE PATIENTS WITH MEDICARE COVERAGE REQUIRING HOME VNA SERVICES AND/OR HOSPICE SERVICES) PATIENT'S LOCATION: Ishan Irving [address] [facility] [address] (home) Cell: Telephone Information: Lead Caregiver's Name: Lee Gasca In discussion with the attending physician, it is certified that this patient is under their care and that they, or a Nurse Practitioner,Clinical Nurse specialist or Physician Professor Of Fine Art who is working directly with them, had [...] for managing ADL's. HOME HEALTH CARE AGENCY: [facility]. [address] [place] [id number] Start of care: 24-48 hours post DC [...] Chris Stanley APRN [address] / [facility] [address] All VNA agencies which cover the area of patient's residence have been reviewed, either verbally terrence writing, and patient/family have chosen the home health care agency noted Questions: Disciplines Requested: Physical Therapy Occupational Therapy Nursing Provider Contact Information: Chris Stanley APRN [address] / [facility] [address] Discharge References/Attachments: Discharge References/Attachments None documented in [...] or its attachments. INTERVENTIONAL RADIOLOGY PHONE NUMBERS [phone] ___X___ If you have a NON Low profile feeding tube, call with any questions or concerns. During regular office hours call: [phone]. If it is after regular office hours, weekends or holidays, please call [phone] and ask to speak to the Dispatcher Service Chief protection chief industrial plant for Interventional Radiology. Revised 02/23/19 YOU ARE [...] avoid another low BG in the future. [facility] INTERVENTIONAL RADIOLOGY NURSES NOTE FOR GASTROPEXY [...] is during regular office hours, please call [phone]. If it is after regular office hours, or on weekends or holidays, please call [phone] and ask to speak to the Dispatcher Service Chief protection chief industrial plant for Interventional Radiology. Revised 02/23/19 * Patient [...] Center 11/12/2022 11:30 AM Dixie Tadeo MD [facility] ENDO [facility] Date and Time Provider and Specialty Location Need to be scheduled Chris Stanley APRN , PCP [address] / [facility] [address] Your Inpatient Doctor(s) at [facility]: Jose Mcleod MD Your Primary Care Provider: Chris Stanley APRN [address] / [facility] [address] For questions regarding this document or issues relating to this hospitalization on the Medical Service, please contact your inpatient physician through the [facility] [employer] . Issues afterhours and on weekends will [...] meter kit. 1 each 0 12/14/2014 Insulin [place], Disposable, (BD INSULIN PEN NEEDLE UF MINI) [...] spent >30 minutes (Day of Discharge Code 87991) involved in the final examination of the [...] deficiency anemia,??GERD??c/b??esophagitis &??Farrell's esophagus??presenting in transfer from [facility], suspected to be in cardiogenic shock and [...] BG in the future. Elsie Erickson APRN [facility] Endocrinology Diabetes Management Pager [phone] 40 minutes of 50 minutes was spent [...] ADLs]: Hands on Surveillance [facility]continuous indirect [facility] near nurses' station Rounding Patient-specific fall prevention interventions for sensory deficits provided, if applicable: [X] No * Jose Mcleod MD - 09/24/2022 4:21 PM EDT Hospital Medicine Attending Daily Progress Note Admit Date: 08/14/2022 Hospital Day 41 days Active Hospital Problems Diagnosis ??? Bipolar disorder ??? T2DM (type 2 diabetes mellitus) Resolved Hospital Problems Diagnosis Date Resolved ??? Shock 08/22/2022 [facility] Active Non-Hospital Problems Diagnosis ??? Neuroleptic-induced [...] fellows interpretation Confirmed by fellow Niurka Rose ([id number]) on 09/07/2022 8:45:34 AM Confirmed by MD [...] anemia,??GERD??c/b??esophagitis &??Farrell's esophagus, who was admitted to [facility] on 08/14/2022??for mixed shock and stress cardiomyopathy [...] with family 09/25 Team Pager( Coverage 30/11): #[phone] PCP: Chris Stanley, SUPERINTENDENT COLLIERY [phone] Attestation: Attending Attestation and Certification I have examined the patient myself and personally reviewed all studies. In addition, I certify thatI am a D-H credentialed attending provider with admitting privileges and that the patient meets or has met medical necessity to require an inpatient IPI level of care meeting a minimum of two midnights or is on the [facility] inpatient only procedure list (status C) due to: the patient has met Inpatient IPI criteria and is awaiting rehabilitation or group home facility placement with active referrals in process [...] importance to continue to progress athome. Pager: [phone] DANIELA Montes 09/24/2022 Occupational Therapy Rehabilitation Department [...] room in the hospital. [facility] [phone] * Alicia Gillis - 09/24/2022 10:38 AM [...] deficiency anemia,??GERD??c/b??esophagitis &??Farrell's esophagus??presenting in transfer from [facility], suspected to be in cardiogenic shock and [...] 14 hrs Monitoring: Q4 Elsie Erickson APRN [facility] Endocrinology Diabetes Management Pager [phone] minutes of this 50 minute visit [...] Problems Diagnosis Date Resolved ??? Shock 08/22/2022 [facility] Active Non-Hospital Problems Diagnosis ??? Neuroleptic-induced [...] fellows interpretation Confirmed by fellow Niurka Rose ([id number]) on 09/07/2022 8:45:34 AM Confirmed by MD [...] anemia,??GERD??c/b??esophagitis &??Farrell's esophagus, who was admitted to [facility] on 08/14/2022??for mixed shock and stress cardiomyopathy [...] with family 09/25 Team Pager( Coverage 30/11): #[phone] PCP: Chris Stanley APRN [phone] Attestation: Attending Attestation and Certification I have [...] IPI criteria and is awaiting rehabilitation or group home facility placement with active referrals in process Jose Mcleod MD 09/23/2022 * Feroz Portillo, PILE DRIVER - 09/23/2022 1:55 PM EDT Physical Therapy [...] deficiency anemia,??GERD??c/b??esophagitis &??Farrell's esophagus??presenting in transfer from [facility], suspected to be in cardiogenic shock and [...] attempting to sit. [facility] when medically ready. [...] TE-F x 2 FEROZ PORTILLO TEMITOPE Pager: [phone] Physical Therapy Inpatient Rehabilitation Department * Amaris Alicia Johanny, LUMBER PILER - 09/23/2022 10:14 AM EDT Occupational Therapy Treatment Note Treatment Number OT: 8 Patient Dx: Ishan Irving??is a 62 y.o.??female??admitted on 08/14/2022??with a medical history notable for??recent L femoral neck fracture,??bipolar disorder, resolving medication-induced Parkinsonism, insulin- dependent diabetes mellitus,??hx of alcohol use disorder (reported to be in remission for 1.5 years) c/b chronic pancreatitis, iron deficiency anemia,??GERD??c/b??esophagitis &??Farrell's esophagus??presenting in transfer from [facility], suspected to be in cardiogenic shock and [...] Total Minutes, Occupational Therapy: 44 (x3 schm [phone]) Pager: [phone] DANIELA Montes 09/23/2022 Occupational Therapy Rehabilitation Department [...] fellows interpretation Confirmed by fellow Niurka Rose ([id number]) on 09/07/2022 8:45:34 AM Confirmed by MD [...] anemia,??GERD??c/b??esophagitis &??Farrell's esophagus, who was admitted to [facility] on 08/14/2022??for mixed shock and stress cardiomyopathy [...] with family 09/25 Team Pager( Coverage 30/11): #[phone] PCP: Chris Stanley APRN [phone] Attestation: Attending Attestation and Certification I have [...] IPI criteria and is awaiting rehabilitation or group home facility placement with active referrals in process Jose Mcloed MD 09/22/2022 * Jenn Staples PA - 09/22/2022 7:46 AM EDT ORTHOPAEDIC SURGERY INPATIENT PROGRESS NOTE Patient Name: Ishan Irving Age: 62 y.o. Surgery/Issue: concern for septic arthritis s/p ORIF of the L Hip Fx at [facility] Attending: David Lynne MD Date of surgery: 08/09/2022 SUBJECTIVE / INTERVAL HISTORY: Ms Irving is a 62 y.o. woman with a history of L femoral neck fracture,??bipolar disorder, resolving medication-induced Parkinsonism, insulin- dependent diabetes mellitus,??hx of alcohol use disorder (reported to be in remission for 1.5 years) c/b chronic pancreatitis, iron deficiency anemia,??GE RD??c/b??esophagitis &??Farrell's esophagus, who was admitted to [facility] on 08/14/2022??for mixed shock and stress cardiomyopathy who transferred to Hospital Medicine due to persistent dysphagia. Per primary team patient remains clinically stable. Ms Irving is being seen today by orthopedics for 1 month surveillance check of possible septic arthritis s/p ORIF of Right hip performed by Dr. Lynne at [facility] on 08/09/2022. Today Patient reports thatshe is [...] patient follow up with Orthopedic surgeon at [facility] for continued surveillance of fracture healing. No further follow up with Orthopedics at [facility] is necessary. Orthopedics will sign off at this time. Please page [phone] with any questions or concerns that may arise. - Activity: WBAT LLE - DVT prophylaxis: Per primary - Antibiotics: Per primary - Diet: Per primary Jenn Staples PA-C 09/24/2022 Future Appointments Date Time Provider Department Center 09/25/2022 9:00 AM [facility] IR RECOVERY MH IR [facility] Rad 11/12/2022 11:30 AM Dixie Tadeo MD [facility] * Xochitl Brooks RN - 09/22/2022 5:03 AM EDT OUTCOME EVALUATION NOTE: OUTCOME SUMMARY: Pt A&O X4. VS as charted on RA. Meds given per JUL, crushed through the PEG tube. Tube feed Nutren 1.5 cyclic 4919-7727. Pt c/o of tenderness in her L [...] fellows interpretation Confirmed by fellow Niurka Rose ([id number]) on 09/07/2022 8:45:34 AM Confirmed by MD [...] anemia,??GERD??c/b??esophagitis &??Farrell's esophagus, who was admitted to [facility] on 08/14/2022??for mixed shock and stress cardiomyopathy [...] with family 09/25 Team Pager(MD Coverage 30/11): #[phone] PCP: Chris Stanley, SUPERINTENDENT COLLIERY [phone] Attestation: Attending Attestation and Certification Please see [...] IPI criteria and is awaiting rehabilitation or group home facility placement with active referrals in process Jose Mcleod MD 09/21/2022 * Feroz Portillo, PILE DRIVER - 09/21/2022 1:50 PM EDT Physical Therapy [...] deficiency anemia,??GERD??c/b??esophagitis &??Farrell's esophagus??presenting in transfer from [facility], suspected to be in cardiogenic shock and [...] TE-F x 3 FEROZ PORTILLO PTA Pager: [phone] Physical Therapy Inpatient Rehabilitation Department * Wilda Blankenship, RD - 09/21/2022 12:11 PM EDT Nutrition Progress Note Ishan M Irving??is a 62 y.o.??female??with h/o bipolar, DM, EtOH, esophagitis, who presented to [facility] 3 days ago after being found unresponsive at home.?Patient found to have likely pneumonia+/- aspiration, newly reduced EF. Reason for Assessment: Tube Feeding, Follow-up Nutrition Recommendations: Suggest Cyclic Nutren 1.5 at 72 ml per hour plus 2 scoops of protein powder 14 hrs from 9071-3348 -pended At goal, this will provide: Nutren [...] p.o. Intake, etc. ?? Po diet per PLAY BACK OPERATOR (recs 09/04 NPO s/p MBS) ?? Continue [...] encounter: 67.7 kg (149 lb 3.2 oz). Stevens Body Weight (IBW) (kg): 45.45 Usual Body [...] while inpatient THANKS Wilda Blankenship RD Pager #:[phone] * Siobhan Harper LPN - 09/20/2022 11:27 [...] anemia,??GERD??c/b??esophagitis &??Farrell's esophagus, who was admitted to [facility] on 08/14/2022 (now on Hospital Day #23)??for [...] barrier technique was used throughout. ??A 4 Polish glide catheter??was placed??as a??nasoenteric tube??under fluoroscopy with [...] now extending below the diaphragm and included yplyb-pr-idwb. 2. Similarappearance of elevated right hemidiaphragm and [...] anemia,??GERD??c/b??esophagitis &??Farrell's esophagus, who was admitted to [facility] on 08/14/2022 (now on Hospital Day #23)??for [...] minimumof two midnights or is on the [facility] inpatient only procedure list (status C) due to: the patient has met Inpatient IPI criteria and is awaiting rehabilitation or group home facility placement withactive referrals in process Team Pager (MD Coverage 30/11): #[phone] PCP: VAUGHN Whyte MD 09/20/22 * Shirley Thibodeaux RN - 09/20/2022 5:21 AM EDT OUTCOME EVALUATION NOTE: OUTCOME SUMMARY: Pt is A/OX4, VSS on . Pt denies SOB,NVD, chest pain. 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 Pt C/O of acid [...] anemia,??GERD??c/b??esophagitis &??Farrell's esophagus, who was admitted to [facility] on 08/14/2022 (now on Hospital Day #23)??for [...] ??? tube feeding diet 1,008 mL (09/19/22 3122) ??? tube feeding diet Stopped (09/17/22 8396) PRN Meds: ondansetron, polyethylene glycoL, prochlorperazine, ondansetron, [...] barrier technique was used throughout. ??A 4 Polish glide catheter??was placed??as a??nasoenteric tube??under fluoroscopy with [...] now extending below the diaphragm and included hyvww-kj-xrxy. 2. Similarappearance of elevated right hemidiaphragm and [...] anemia,??GERD??c/b??esophagitis &??Farrell's esophagus, who was admitted to [facility] on 08/14/2022 (now on Hospital Day #23)??for [...] minimumof two midnights or is on the [facility] inpatient only procedure list (status C) due to: the patient has met Inpatient IPI criteria and is awaiting rehabilitation or group home facility placement withactive referrals in process Team Pager ( Coverage 30/11): #[phone] PCP: VAUGHN Whyte MD 09/19/22 * Shirley Thibodeaux RN - 09/19/2022 4:47 AM EDT OUTCOME EVALUATION NOTE: OUTCOME SUMMARY: Pt is A/OX4, VSS on RA. Pt denies SOB,NVD, chest pain. 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 Pt C/O of nausea, [...] anemia,??GERD??c/b??esophagitis &??Farrell's esophagus, who was admitted to [facility] on 08/14/2022 (now on Hospital Day #23) [...] Hunt MD Attending, Hospital Medicine Service Pager #[phone] 09/18/2022 24 Hour Events: None Subjective: Doing [...] 168 hours. No results for input(s): PHART, NZW3EOE, PO2ART, UDD3BHU in the last 168 hours. Micro: No [...] minimumof two midnights or is on the [facility] inpatient only procedure list (status C) due to: the patient has met Inpatient IPI criteria and is awaiting rehabilitation or group home facility placement withactive referrals in process Alan [...] deficiency anemia,??GERD??c/b??esophagitis &??Farrell's esophagus??presenting in transfer from [facility], suspected to be in cardiogenic shock and [...] times/wk Total Minutes, Occupational Therapy: 48 (x3 [facility] [phone]) Pager: [phone] DANIELA Montes 09/18/2022 Occupational Therapy Rehabilitation Department * Shirley Thibodeaux RN - 09/18/2022 3:01 AM EDT OUTCOME EVALUATION NOTE: OUTCOME SUMMARY: Pt is A/OX4, VSS on RA. Pt denies SOB,NVD, chest pain. 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 Pt C/O of nausea, [...] anemia,??GERD??c/b??esophagitis &??Farrell's esophagus, who was admitted to [facility] on 08/14/2022 (now on Hospital Day #23) [...] Hunt MD Attending, Hospital Medicine Service Pager #[phone] 09/17/2022 24 Hour Events: None Subjective: Doing [...] 168 hours. No results for input(s): PHART, CDO2FJF, PO2ART, OBL7NVA in the last 168 hours. Micro: No [...] minimumof two midnights or is on the [facility] inpatient only procedure list (status C) due to: the patient has met Inpatient IPI criteria and is awaiting rehabilitation or group home facility placement withactive referrals in process Alan Hunt MD * Nancy Ernst, RD - 09/17/2022 12:38 PM EDT Nutrition Progress Note Ishan Orlando Irving??is a 62 y.o.??female??with h/o bipolar, DM, EtOH, esophagitis, who presented to [facility] 3 days ago after being found unresponsive at home.?Patient found to have likely pneumonia+/- aspiration, newly reduced EF. Reason for Assessment: Tube Feeding, Follow-up Nutrition Recommendations: Suggest Cyclic Nutren 1.5 at 72 ml per hour plus 2 scoops of protein powder 14 hrs from 0528-6244 -pended At goal, this will provide: Nutren 1.5 Total Volume Per Day: 1012 mL Calories per Day: 1518 Protein per Day: 69 g Free Water mL per Day: 773 % RDI: 101 % Monitor hydration status on above TFs as they are concentrated. Pt may need additional fluids depending on IVFs, med flushes, p.o. Intake, etc. ?? Po diet per PLAY BACK OPERATOR (recs 09/04 NPO s/p MBS) ?? Continue [...] of this encounter: 64.4 kg (142 lb). Stevens Body Weight (IBW) (kg): 45.45 Usual Body [...] up while inpatient Nancy Ernst RD Pager #:[phone] * Shirley Thibodeaux RN - 09/17/2022 3:42 AM EDT OUTCOME EVALUATION NOTE: OUTCOME SUMMARY: Pt is A/OX4, VSS on RA. Pt denies SOB,NVD, chest pain. 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 Assessment as documented (see [...] PLAN GOAL OUTCOME EVALUATION: * Feroz Portillo, PILE DRIVER - 09/16/2022 2:05 PM EDT Physical Therapy [...] deficiency anemia,??GERD??c/b??esophagitis &??Farrell's esophagus??presenting in transfer from [facility], suspected to be in cardiogenic shock and [...] the current findings, Anticipated Discharge Disposition (PT): group home facility when medically ready for hospital discharge. [...] TE-F x 3 FEROZ PORTILLO PTA Pager: [phone] Physical Therapy Inpatient Rehabilitation Department * Alan [...] anemia,??GERD??c/b??esophagitis &??Farrell's esophagus, who was admitted to [facility] on 08/14/2022 (now on Hospital Day #23) [...] Hunt MD Attending, Hospital Medicine Service Pager #[phone] 09/16/2022 24 Hour Events: None Subjective: Doing [...] 168 hours. No results for input(s): PHART, ZGR1SPC, PO2ART, MUS7HGG in the last 168 hours. Micro: No [...] minimumof two midnights or is on the [facility] inpatient only procedure list (status C) due to: the patient has met Inpatient IPI criteria and is awaiting rehabilitation or group home facility placement withactive referrals in process Alan [...] deficiency anemia,??GERD??c/b??esophagitis &??Farrell's esophagus??presenting in transfer from [facility], suspected to be in cardiogenic shock and [...] times/wk Total Minutes, Occupational Therapy: 24 (x2 [facility] [phone]) Pager: [phone] DANIELA Montes 09/16/2022 Occupational Therapy Rehabilitation Department * Jane Howe - 09/16/2022 9:54 AM EDTSumizzy: Clinical Notes Submitted to [facility] Medicaid Program for Review 09/16/22 0954 Paving Supervisor Care Medicaid Date Clinical Application Filed 09/16/22 State Application Filed in [place] Farideh Kirby RN [facility] from [place] [facility]TC Medicaid Program requested clinical notes for Ishan gabriel level of need. Maintenance And Engineering Manager sent Ishan's most recent MDs, PT/OT/PLAY BACK OPERATOR, RNCM and nursing notes. Along with Ishan's [...] deficiency anemia,??GERD??c/b??esophagitis &??Farrell's esophagus??presenting in transfer from [facility], suspected to be in cardiogenic shock and [...] stable overnight blood sugars Elsie Erickson APRN [facility] Endocrinology Diabetes Management Pager [phone] * Briana Bryant, BRAYDON - 09/15/2022 8:38 AM EDT Speech Therapy Note Patient Profile: Ishan Irving is a 62 year old female with a medical history notable for??recent L femoral neck fracture,??bipolar disorder, resolving medication-induced Parkinsonism, insulin-dependent diabetes mellitus,??hx of alcohol use disorder (reported to be in remission for 1.5 years) c/b chronic pancreatitis, iron deficiency anemia,??GERD??c/b??esophagitis &??Farrell's esophagus??presenting in transfer from [facility]??on 08/14/2022, suspected to be in cardiogenic shock and found to be in mixed shock with concern for stress cardiomyopathy.??PLAY BACK OPERATOR following for swallow, cognitive tx. MBS completed [...] Pt was seen today for a follow-up PLAY BACK OPERATOR visit. Oral and pharyngeal swallow function appear [...] after Excellent oral care Plan: Therapy Frequency (PLAY BACK OPERATOR Eval): Monitor while hospitalized Pt./family are in agreement with treatment plan. Total Minutes (Speech Language Pathology): 10 Briana Bryant MA, [facility]-PLAY BACK OPERATOR Pager: [phone] Speech-Language Pathology Inpatient Rehabilitation Medicine * Chau Keith MD - 09/15/2022 6:34 AM EDT Images from the original note were not included. Inpatient Hospital Medicine Progress Note 09/15/2022 Patient Name: ISHAN IRVING Date of : 1960 Age: 62 y.o. Hospital Admit Date: 08/14/2022 Hospital Day: 32 Inpatient Attending: Balaji Mayer MD PCP: Chris Stanley APRN ([phone]) ID: Ishan Irving is a 62 y.o. 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.5 years) c/b chronic pancreatitis, iron deficiency anemia, ??GERD??c/b??esophagitis &??Farrell's esophagus, who was admitted to [facility] on 08/14/2022 (now on Hospital Day #32) [...] fellows interpretation Confirmed by fellow Niurka Rose ([id number]) on 09/07/2022 8:45:34 AM Confirmed by MD ALEJANDRA, RICHARD ([id number]) on 09/07/2022 1:55:43 PM QTCCALC [id number] 09/07/2022 0635 Microbiology: No results found for: URINECULTURE Lab Results Component Value Date/Time BLOODCX No growth at 5 days. 08/19/2022 1720 BLOODCX No growth at 5 days. 08/19/2022 1330 Microbiology Results (Last 30 days) Procedure Component Value Units Date/Time Lower Respiratory Culture Bronchial Alveolar Lavage [[id number]] Collected: 08/21/22 1650 Lab Status: Final result Specimen: Bronchial Alveolar Lavage Updated: 08/23/22 0741 Lower Respiratory Culture Rare mixed bacterial morphotypes suggestive of normal upper respiratory wiley Gram Stain -- Few Neutrophils seen No squamous epithelial cells seen No microorganisms seen. Fungus Culture & Calc Stain Bronchial Alveolar Lavage [[id number]] (Abnormal) Collected: 08/21/221649 Lab Status: Preliminary result Specimen: Bronchial Alveolar Lavage Updated: 08/24/22 1452 AFB culture Bronchial Alveolar Lavage [[id number]] Collected: 08/21/221649 Lab Status: Preliminary result Specimen: Bronchial Alveolar Lavage Updated: 08/24/22 2219 Acid Fast Bacilli Culture -- No Acid Fast Bacilli isolated to date If active tuberculosis is suspected, the patient should be on [employer] PRECA[employer]. Call Infection Prevention for assistance if needed. Acid Fast Stain No Acid Fast Bacilli seen Fungus culture [[id number]] (Abnormal) Collected: 08/21/221649 Lab Status: Preliminary result Specimen: Bronchial Alveolar Lavage Updated: 08/24/22 145 Fungus Culture Rare Jacky albicans Calcofluor White Stain [[id number]] Collected: 08/21/221649 Lab Status: Final result Specimen: Bronchial Alveolar Lavage Updated: 08/21/22 2016 Calcofluor Stain Calcofluor White Preparation: Negative Lower Respiratory Culture Bronchial Alveolar Lavage [[id number]] Collected: 08/21/221644 Lab Status: Final result Specimen: Bronchial Alveolar Lavage Updated: 08/23/22 0741 Lower Respiratory Culture Rare mixed bacterial morphotypes suggestive of normal upper respiratory wiley Gram Stain -- Moderate Neutrophils seen No squamous epithelial cells seen No microorganisms seen. Fungus Culture & Calc Stain Bronchial Alveolar Lavage [[id number]] (Abnormal) Collected: 08/21/221644 Lab Status: Preliminary result Specimen: Bronchial Alveolar Lavage Updated: 08/24/22 145 AFB culture Bronchial Alveolar Lavage [[id number]] Collected: 08/21/221644 Lab Status: Preliminary result Specimen: Bronchial Alveolar Lavage Updated: 08/24/22 2221 Acid Fast Bacilli Culture -- No Acid Fast Bacilli isolated to date If active tuberculosis is suspected, the patient should be on [employer]CA[employer]. Call Infection Prevention for assistance if needed. Acid Fast Stain No Acid Fast Bacilli seen Fungus culture [[id number]] (Abnormal) Collected: 08/21/221644 Lab Status: Preliminary result Specimen: Bronchial Alveolar Lavage Updated: 08/24/221452 Fungus Culture Rare Jacky albicans Calcofluor White Stain [[id number]] Collected: 08/21/22 1645 Lab Status: Final result Specimen: Bronchial Alveolar Lavage Updated: 08/21/22 2017 Calcofluor Stain Calcofluor White Preparation: Negative Blood culture [[id number]] Collected: 08/19/22 1720 Lab Status: Final result Specimen: Blood Updated: 08/24/22 2301 Blood Culture No growth at 5 days. Lower Respiratory Culture Sputum Induced [[id number]] Collected: 08/19/22 1451 Lab Status: Final result Specimen: Sputum Induced Updated: 08/21/22 0948 Lower Respiratory Culture Rare mixed bacterial morphotypes suggestive of normal upper respiratory wiley Gram Stain -- Many Neutrophils seen Few squamous epithelial cells seen No microorganisms seen. Blood culture [[id number]] Collected: 08/19/22 1330 Lab Status: Final result Specimen: Blood Updated: 08/24/22 1501 Blood Culture No growth at 5 days. Legionella Urinary Antigen [[id number]] Collected: 08/18/22 1013 Lab Status: Final result [...] who have questions please contact the health animal care taker that requested your imaging first. Electronically signed by: Davi Terry MD, [facility] ([phone]), at 08/15/2022 3:53 AM XR Abdomen 1 view (Generic) (Exam [...] who have questions please contact the health animal care taker that requested your imaging first. Electronically signed by: Liliane Adams MD, [facility] ([phone]), at 08/15/2022 9:05 AM XR Chest One [...] who have questions please contact the health animal care taker that requested your imaging first. Electronically signed by: Davi Terry MD, [facility] ([phone]), at 08/15/2022 3:55 AM XR Abdomen 1 [...] who have questions please contact the health animal care taker that requested your imaging first. Electronically signed by: Davi Terry MD, [facility] ([phone]), at 08/15/2022 6:41 AM XR Chest One [...] who have questions please contact the health animal care taker that requested your imaging first. Electronically signed by: Alfonso Adams MD, [facility] ([phone]), at 08/16/2022 10:[address] Head wo [...] who have questions please contact the health animal care taker that requested your imaging first. Electronically signed by: Moustapha Correa MD, [facility] ([phone]), at 08/16/2022 11:19 PM XR Abdomen 1 [...] who have questions please contact the health animal care taker that requested your imaging first. Head wo Contrast (Generic) (Exam End: 08/18/2022 3:14 PM) Impression No acute intracranial process. Thank you for letting us participate in the care of this patient. If you are a health care provider and have any questions regarding this report, please contact the number below. For patients who have questions please contact the health animal care taker that requested your imaging first. Electronically signed by: Antonio Jordan MD, [facility] ([phone]), at 08/18/2022 3:18 PM XR Chest One [...] who have questions please contact the health animal care taker that requested your imaging first. Electronically signed by: Alan De Guzman MD, [facility] ([phone]), at 08/19/2022 3:14 PM MRI Brain wo Contrast (Exam End: 08/19/2022 10:15 PM) Impression No acute infarction, mass or mass effect. Thank you for letting us participate in the care of this patient. If you are a health care provider and have any questions regarding this report, please contact the number below. For patients who have questions please contact the health animal care taker that requested your imaging first. Electronically signed by: Jagdeep Lee MD, [facility] ([phone]), at 08/20/2022 3:34 AM XR Chest for [...] who have questions please contact the health animal care taker that requested your imaging first. Electronically signed by: Alan De Guzman MD, [facility] ([phone]), at 08/19/2022 4:[address] Hip w [...] who have questions please contact the health animal care taker that requested your imaging first. Electronically signed by: Aicha Chowdhury MD, [facility] ([phone]), at 08/21/2022 9:[address] Chest w [...] who have questions please contact the health animal care taker that requested your imaging first. Electronically signed by: Jagdeep Lee MD, [facility] ([phone]), at 08/21/2022 6:56 AM XR Hip 2-3 Views Left (Exam End: 08/22/2022 12:19 AM) Impression No radiographic evidence of infection. Thank you for letting us participate in the care of this patient. If you are a health care provider and have any questions regarding this report, please contact the number below. For patients who have questions please contact the health animal care taker that requested your imaging first. Electronically signed by: Viktor Cervantes MD, [facility] ([phone]), at 08/22/2022 12:43 PM XR Pelvis (Generic) (Exam End: 08/22/2022 12:19 AM) Impression No radiographic evidence of infection status post left hip ORIF. Thank you for letting us participate in the care of this patient. If you are a health care provider and have any questions regarding this report, please contact the number below. For patients who have questions please contact the health animal care taker that requested your imaging first. Electronically signed by: Richard Billings MD, [facility] ([phone]), at 08/22/2022 10:[address] Angiogram Coronary [...] who have questions please contact the health animal care taker that requested your imaging first. Electronically signed by: Arlette Mays MD, [facility] ([phone]), at 08/27/2022 11:[address] Chest wo Contrast (Generic) (Exam End: 08/27/2022 8:58 AM) Impression Stable findings of multifocal pneumonia. No interval abnormality. Thank you for letting us participate in the care of this patient. If you are a health care provider and have any questions regarding this report, please contact the number below. For patients who have questions please contact the health animal care taker that requested your imaging first. Electronically signed by: MINH QUIROGA MD, [facility] ([phone]), at 08/27/2022 10:48 AM XR Fluoro Barium [...] who have questions please contact the health animal care taker that requested your imaging first. Electronically signed by: Aron Billings MD, [facility] ([phone]), at 08/31/2022 12:02 PM XR Fluoro Barium [...] who have questions please contact the health animal care taker that requested your imaging first. Electronically signed by: Alfonso Adams MD, [facility] ([phone]), at 09/04/2022 10:57 AM XR Abdomen 1 [...] who have questions please contact the health animal care taker that requested your imaging first. Electronically signed by: Jagdeep Lee MD, [facility] ([phone]), at 09/04/2022 10:35 PM XR Chest One [...] who have questions please contact the health animal care taker that requested your imaging first. Electronically signed by: Jagdeep Lee MD, [facility] ([phone]), at 09/04/2022 10:35 PM XR Chest One View (Exam End: 09/05/2022 9:24 AM) Impression 1. Reposition enteric tube now extending below the diaphragm and included aivbt-en-fyre. 2. Similar appearance of elevated right hemidiaphragm and linear/patchy bibasilar opacities which may represent atelectasis or possibly aspiration. Thank you for letting us participate in the care of this patient. If you are a health care provider and have any questions regarding this report, please contact the number below. For patients who have questions please contact the health animal care taker that requested your imaging first. Electronically signed by: AUDI PERDOMO MD, [facility] ([phone]), at 09/05/2022 3:43 PM XR Abdomen 1 [...] who have questions please contact the health animal care taker that requested your imaging first. Electronically signed by: Camille Garcia MD, [facility] ([phone]), at 09/10/2022 1:16 AM Medications: Scheduled: ??? [...] RD??c/b??esophagitis &??Farrell's esophagus, who was admitted to [facility] on 08/14/2022 (now on Hospital Day #23) [...] her insurance that lacks rehab coverage requiring long-term care medicaid. Her application has been submitted. [...] nightly - C/w valproate 300mg q6h - PLAY BACK OPERATOR following, NPO at present - Psychiatry Consult, [...] Medicine PGY1 Medicine Team: Jose Juan, Pager #[phone] Date: 09/15/2022 Associated attestation - Balaji Fraga [...] of two midnights or is on the [facility] inpatient only procedure list (status C) due to: the patient has met Inpatient IPI criteria and is awaiting rehabilitation or group home facility placement with active referrals in process * Wilda Blankenship, RD - 09/14/2022 3:04 PM EDT Nutrition Progress Note Ishan Irving is a 62 y.o.??female??with h/o bipolar, DM, EtOH, esophagitis, who presented to [facility] 3 days ago after being found unresponsive at home.?Patient found to have likely pneumonia +/- aspiration, newly reduced EF. Reason for Assessment: Tube Feeding, Follow-up Nutrition Recommendations: Continue current Tube feeding Cyclic Peptamen AF at 90ml/hr for 14 hrs from [id number] At goal, this will provide: Peptamen AF Total Volume Per Day: 1260 mL Scoops of Protein: 0 Calories per Day: 1512 Protein per Day: 96 g Free Water mL per Day: 1023 % RDI: 101 % Monitor hydration status on above TFs as they are concentrated. Pt may need additional fluids depending on IVFs, med flushes, p.o. Intake, etc. Po diet per PLAY BACK OPERATOR (recs 09/04 NPO s/p MBS) Continue 50,000 [...] encounter: 67.2 kg (148 lb 1.6 oz). Stevens Body Weight (IBW) (kg): 45.45 Usual Body [...] while inpatient THANKS Wilda Blankenship RD Pager #:[phone] * Feroz Portillo PTA - 09/14/2022 2:05 [...] deficiency anemia,??GERD??c/b??esophagitis &??Farrell's esophagus??presenting in transfer from [facility], suspected to be in cardiogenic shock and [...] the current findings, Anticipated Discharge Disposition (PT): group home facility when medically ready for hospital discharge. [...] TE-F x 3 FEROZ PORTILLO PTA Pager: [phone] Physical Therapy Inpatient Rehabilitation Department * Alicia Gillis - 09/14/2022 10:46 AM EDT Application submitted via [employer] portal 09/14/2022 Any further documentation to be given to state upon request. * Chau Keith MD - 09/14/2022 6:06 AM EDT Images from the original note were not included. Inpatient Hospital Medicine Progress Note 09/14/2022 Patient Name: ISHAN IRVING Date of : 1960 Age: 62 y.o. Hospital Admit Date: 08/14/2022 Hospital Day: 31 Inpatient Attending: Chong Chao MD PCP: Chris Stanley APRN ([phone]) ID: Ishan Irving is a 62 y.o. 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.5 years) c/b chronic pancreatitis, iron deficiency anemia, ??GERD??c/b??esophagitis &??Farrell's esophagus, who was admitted to [facility] on 08/14/2022 (now on Hospital Day #31) [...] fellows interpretation Confirmed by fellow Niurka Rose ([id number]) on 09/07/2022 8:45:34 AM Confirmed by MD [...] Date/Time Lower Respiratory Culture Bronchial Alveolar Lavage [[id number]] Collected: 08/21/221649 Lab Status: Final result Specimen: Bronchial Alveolar Lavage Updated: 08/23/22 0741 Lower Respiratory Culture Rare mixed bacterial morphotypes suggestive of normal upper respiratory wiley Gram Stain -- Few Neutrophils seen No squamous epithelial cells seen No microorganisms seen. Fungus Culture & Calc Stain Bronchial Alveolar Lavage [[id number]] (Abnormal) Collected: 08/21/221649 Lab Status: Preliminary result Specimen: Bronchial Alveolar Lavage Updated: 08/24/22 145 AFB culture Bronchial Alveolar Lavage [[id number]] Collected: 08/21/221649 Lab Status: Preliminary result Specimen: Bronchial Alveolar Lavage Updated: 08/24/222218 Acid Fast Bacilli Culture -- No Acid Fast Bacilli isolated to date If active tuberculosis is suspected, the patient should be on [employer] PRECAUTIONS. Call Infection Prevention for assistance if needed. Acid Fast Stain No Acid Fast Bacilli seen Fungus culture [[id number]] (Abnormal) Collected: 08/21/221649 Lab Status: Preliminary result Specimen: Bronchial Alveolar Lavage Updated: 08/24/22 145 Fungus Culture Rare Jacky albicans Calcofluor White Stain [[id number]] Collected: 08/21/221649 Lab Status: Final result Specimen: Bronchial Alveolar Lavage Updated: 08/21/22 2016 Calcofluor Stain Calcofluor White Preparation: Negative Lower Respiratory Culture Bronchial Alveolar Lavage [[id number]] Collected: 08/21/221644 Lab Status: Final result Specimen: Bronchial Alveolar Lavage Updated: 08/23/22 0741 Lower Respiratory Culture Rare mixed bacterial morphotypes suggestive of normal upper respiratory wiley Gram Stain -- Moderate Neutrophils seen No squamous epithelial cells seen No microorganisms seen. Fungus Culture & Calc Stain Bronchial Alveolar Lavage [[id number]] (Abnormal) Collected: 08/21/221644 Lab Status: Preliminary result Specimen: Bronchial Alveolar Lavage Updated: 08/24/22 145 AFB culture Bronchial Alveolar Lavage [[id number]] Collected: 04/14/23 1645 Lab Status: Preliminary result Specimen: Bronchial Alveolar Lavage Updated: 08/24/22 2221 Acid Fast Bacilli Culture -- No Acid Fast Bacilli isolated to date If active tuberculosis is suspected, the patient should be on [employer] PRECAUTIONS. Call Infection Prevention for assistance if needed. Acid Fast Stain No Acid Fast Bacilli seen Fungus culture [[id number]] (Abnormal) Collected: 08/21/22 1645 Lab Status: Preliminary result Specimen: Bronchial Alveolar Lavage Updated: 08/24/22 1453 Fungus Culture Rare Jacky albicans Calcofluor White Stain [[id number]] Collected: 08/21/22 164 Lab Status: Final result Specimen: Bronchial Alveolar Lavage Updated: 08/21/22 2017 Calcofluor Stain Calcofluor White Preparation: Negative Blood culture [[id number]] Collected: 08/19/22 1720 Lab Status: Final result Specimen: Blood Updated: 08/24/22 2301 Blood Culture No growth at 5 days. Lower Respiratory Culture Sputum Induced [[id number]] Collected: 08/19/22 1451 Lab Status: Final result Specimen: Sputum Induced Updated: 08/21/22 0948 Lower Respiratory Culture Rare mixed bacterial morphotypes suggestive of normal upper respiratory wiley Gram Stain -- Many Neutrophils seen Few squamous epithelial cells seen No microorganisms seen. Blood culture [[id number]] Collected: 08/19/22 1330 Lab Status: Final result Specimen: Blood Updated: 08/24/22 1501 Blood Culture No growth at 5 days. Legionella Urinary Antigen [[id number]] Collected: 08/18/22 1013 Lab Status: Final result [...] Catheter Urine; Other; sepsis, bacteria on UA [[id number]] Collected: 08/15/22 1225 Lab Status: Final result Specimen: Indwelling Catheter Urine Updated: 08/16/22 0804 Urine Culture 1,000-9,000 cfu/ml Insignificant growth COVID-19 PCR [[id number]] Collected: 08/15/22 1150 Lab Status: Final result [...] using the Simplexa COVID-19 Direct Assay by Wistia as authorized by the FDA issued Emergency [...] Department of Pathology and Laboratory Medicine at [facility], certified under the Clinical Laboratory Improvement Amendments [...] fact sheets at the following FDA website: https://www.fda.gov/medical-devices/rcvnwrszzit-wguyxrm-8508-bnkzr-57-xjygfoaaq- njb-mjyohmgvxzmztd-ruwyplp-devices/gtpos-xsacexoxide-bpqg SARS-CoV-2 Source E[employer]OMICS FACULTY MEMBER Swab Lower Respiratory Culture Sputum Induced [[id number]] Collected: 08/15/22 0740 Lab Status: Final result [...] who have questions please contact the health animal care taker that requested your imaging first. Electronically signed by: Davi Terry MD, [facility] ([phone]), at 08/15/2022 3:53 AM XR Abdomen 1 view (Generic) (Exam [...] who have questions please contact the health animal care taker that requested your imaging first. Electronically signed by: Liliane Adams MD, [facility] ([phone]), at 08/15/2022 9:05 AM XR Chest One [...] who have questions please contact the health animal care taker that requested your imaging first. Electronically signed by: Davi Terry MD, [facility] ([phone]), at 08/15/2022 3:55 AM XR Abdomen 1 [...] who have questions please contact the health animal care taker that requested your imaging first. Electronically signed by: Davi Terry MD, [facility] ([phone]), at 08/15/2022 6:41 AM XR Chest One [...] who have questions please contact the health animal care taker that requested your imaging first. Electronically signed by: Alfonso Adams MD, [facility] ([phone]), at 08/16/2022 10:[address] Head wo [...] who have questions please contact the health animal care taker that requested your imaging first. Electronically signed by: Moustapha Correa MD, [facility] ([phone]), at 08/16/2022 11:19 PM XR Abdomen 1 [...] who have questions please contact the health animal care taker that requested your imaging first. Head wo Contrast (Generic) (Exam End: 08/18/2022 3:14 PM) Impression No acute intracranial process. Thank you for letting us participate in the care of this patient. If you are a health care provider and have any questions regarding this report, please contact the number below. For patients who have questions please contact the health animal care taker that requested your imaging first. Electronically signed by: Antonio Jordan MD, [facility] ([phone]), at 08/18/2022 3:18 PM XR Chest One [...] who have questions please contact the health animal care taker that requested your imaging first. Electronically signed by: [facility] ([phone]), at 08/19/2022 3:14 PM MRI Brain wo Contrast (Exam End: 08/19/2022 10:15 PM) Impression No acute infarction, mass or mass effect. Thank you for letting us participate in the care of this patient. If you are a health care provider and have any questions regarding this report, please contact the number below. For patients who have questions please contact the health animal care taker that requested your imaging first. Electronically signed by: Jagdeep Lee MD, [facility] ([phone]), at 08/20/2022 3:34 AM XR Chest for [...] who have questions please contact the health animal care taker that requested your imaging first. Electronically signed by: Alan De Guzman MD, [facility] ([phone]), at 08/19/2022 4:[address] Hip w [...] who have questions please contact the health animal care taker that requested your imaging first. Electronically signed by: Aicha Chowdhury MD, [facility] ([phone]), at 08/21/2022 9:[address] Chest w [...] who have questions please contact the health animal care taker that requested your imaging first. Electronically signed by: Jagdeep Lee MD, [facility] ([phone]), at 08/21/2022 6:56 AM XR Hip 2-3 Views Left (Exam End: 08/22/2022 12:19 AM) Impression No radiographic evidence of infection. Thank you for letting us participate in the care of this patient. If you are a health care provider and have any questions regarding this report, please contact the number below. For patients who have questions please contact the health animal care taker that requested your imaging first. Electronically signed by: Viktor Cervantes MD, [facility] ([phone]), at 08/22/2022 12:43 PM XR Pelvis (Generic) (Exam End: 08/22/2022 12:19 AM) Impression No radiographic evidence of infection status post left hip ORIF. Thank you for letting us participate in the care of this patient. If you are a health care provider and have any questions regarding this report, please contact the number below. For patients who have questions please contact the health animal care taker that requested your imaging first. Electronically signed by: Richard Billings MD, [facility] ([phone]), at 08/22/2022 10:[address] Angiogram Coronary [...] who have questions please contact the health animal care taker that requested your imaging first. Electronically signed by: Arlette Mays MD, [facility] ([phone]), at 08/27/2022 11:[address] Chest wo Contrast (Generic) (Exam End: 08/27/2022 8:58 AM) Impression Stable findings of multifocal pneumonia. No interval abnormality. Thank you for letting us participate in the care of this patient. If you are a health care provider and have any questions regarding this report, please contact the number below. For patients who have questions please contact the health animal care taker that requested your imaging first. Electronically signed by: MINH QUIROGA MD, [facility] ([phone]), at 08/27/2022 10:48 AM XR Fluoro Barium [...] who have questions please contact the health animal care taker that requested your imaging first. Electronically signed by: Aron Billings MD, [facility] ([phone]), at 08/31/2022 12:02 PM XR Fluoro Barium [...] who have questions please contact the health animal care taker that requested your imaging first. Electronically signed by: Alfonso Adams MD, [facility] ([phone]), at 09/04/2022 10:57 AM XR Abdomen 1 [...] who have questions please contact the health animal care taker that requested your imaging first. Electronically signed by: Jagdeep Lee MD, [facility] ([phone]), at 09/04/2022 10:35 PM XR Chest One [...] who have questions please contact the health animal care taker that requested your imaging first. Electronically signed by: Jagdeep Lee MD, [facility] ([phone]), at 09/04/2022 10:35 PM XR Chest One View (Exam End: 09/05/2022 9:24 AM) Impression 1. Reposition enteric tube now extending below the diaphragm and included [id number]. 2. Similar appearance of elevated right hemidiaphragm and linear/patchy bibasilar opacities which may represent atelectasis or possibly aspiration. Thank you for letting us participate in the care of this patient. If you are a health care provider and have any questions regarding this report, please contact the number below. For patients who have questions please contact the health animal care taker that requested your imaging first. Electronically signed by: AUDI PERDOMO MD, [facility] ([phone]), at 09/05/2022 3:43 PM XR Abdomen 1 [...] who have questions please contact the health animal care taker that requested your imaging first. Electronically signed by: Camille Garcia MD, [facility] ([phone]), at 09/10/2022 1:16 AM Medications: Scheduled: ??? [...] RD??c/b??esophagitis &??Farrell's esophagus, who was admitted to [facility] on 08/14/2022 (now on Hospital Day #23) [...] her insurance that lacks rehab coverage requiring long-term care medicaid. Her application has been submitted. 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 Inpatient Hospital Medicine Progress Note 09/13/2022 Patient Name: ISHAN IRVING Date of : 1960 Age: 62 y.o. Hospital Admit Date: 08/14/2022 Hospital Day: 30 Inpatient Attending: Chong Chao MD PCP: Chris Stanley APRN ([phone]) ID: Ishan Irving is a 62 y.o. 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.5 years) c/b chronic pancreatitis, iron deficiency anemia, ??GERD??c/b??esophagitis &??Farrell's esophagus, who was admitted to [facility] [facility] on 08/14/2022 (now on Hospital Day #30) [...] fellows interpretation Confirmed by fellow Niurka Rose ([id number]) on 09/07/2022 8:45:34 AM Confirmed by MD [...] Date/Time Lower Respiratory Culture Bronchial Alveolar Lavage [[id number]] Collected: 08/21/221649 Lab Status: Final result Specimen: Bronchial Alveolar Lavage Updated: 08/23/22 0741 Lower Respiratory Culture Rare mixed bacterial morphotypes suggestive of normal upper respiratory wiley Gram Stain -- Few Neutrophils seen No squamous epithelial cells seen No microorganisms seen. Fungus Culture & Calc Stain Bronchial Alveolar Lavage [[id number]] (Abnormal) Collected: 08/21/221649 Lab Status: Preliminary result Specimen: Bronchial Alveolar Lavage Updated: 08/24/22 1452 AFB culture Bronchial Alveolar Lavage [[id number]] Collected: 08/21/221649 Lab Status: Preliminary result Specimen: Bronchial Alveolar Lavage Updated: 08/24/22 2219 Acid Fast Bacilli Culture -- No Acid Fast Bacilli isolated to date If active tuberculosis is suspected, the patient should be on [employer] PRECAUTIONS. Call Infection Prevention for assistance if needed. Acid Fast Stain No Acid Fast Bacilli seen Fungus culture [[id number]] (Abnormal) Collected: 08/21/221649 Lab Status: Preliminary result Specimen: Bronchial Alveolar Lavage Updated: 08/24/22 145 Fungus Culture Rare Jacky albicans Calcofluor White Stain [[id number]] Collected: 08/21/221649 Lab Status: Final result Specimen: Bronchial Alveolar Lavage Updated: 08/21/22 2016 Calcofluor Stain Calcofluor White Preparation: Negative Lower Respiratory Culture Bronchial Alveolar Lavage [[id number]] Collected: 08/21/22 164 Lab Status: Final result Specimen: Bronchial Alveolar Lavage Updated: 08/23/22 0741 Lower Respiratory Culture Rare mixed bacterial morphotypes suggestive of normal upper respiratory wiley Gram Stain -- Moderate Neutrophils seen No squamous epithelial cells seen No microorganisms seen. Fungus Culture & Calc Stain Bronchial Alveolar Lavage [[id number]] (Abnormal) Collected: 08/21/221644 Lab Status: Preliminary result Specimen: Bronchial Alveolar Lavage Updated: 08/24/22 145 AFB culture Bronchial Alveolar Lavage [[id number]] Collected: 08/21/221644 Lab Status: Preliminary result Specimen: Bronchial Alveolar Lavage Updated: 08/24/22 222 Acid Fast Bacilli Culture -- No Acid Fast Bacilli isolated to date If active tuberculosis is suspected, the patient should be on [employer] PRECAUTIONS. Call Infection Prevention for assistance if needed. Acid Fast Stain No Acid Fast Bacilli seen Fungus culture [[id number]] (Abnormal) Collected: 08/21/221644 Lab Status: Preliminary result Specimen: Bronchial Alveolar Lavage Updated: 08/24/22 145 Fungus Culture Rare Jacky albicans Calcofluor White Stain [[id number]] Collected: 08/21/221644 Lab Status: Final result Specimen: Bronchial Alveolar Lavage Updated: 08/21/22 2017 Calcofluor Stain Calcofluor White Preparation: Negative Blood culture [[id number]] Collected: 08/19/22 1720 Lab Status: Final result Specimen: Blood Updated: 08/24/22 2301 Blood Culture No growth at 5 days. Lower Respiratory Culture Sputum Induced [[id number]] Collected: 08/19/22 1451 Lab Status: Final result Specimen: Sputum Induced Updated: 08/21/22 0948 Lower Respiratory Culture Rare mixed bacterial morphotypes suggestive of normal upper respiratory wiley Gram Stain -- Many Neutrophils seen Few squamous epithelial cells seen No microorganisms seen. Blood culture [[id number]] Collected: 08/19/22 1330 Lab Status: Final result Specimen: Blood Updated: 08/24/22 1501 Blood Culture No growth at 5 days. Legionella Urinary Antigen [[id number]] Collected: 08/18/22 1013 Lab Status: Final result [...] Catheter Urine; Other; sepsis, bacteria on UA [[id number]] Collected: 08/15/22 1225 Lab Status: Final result Specimen: Indwelling Catheter Urine Updated: 08/16/22 0804 Urine Culture 1,000-9,000 cfu/ml Insignificant growth COVID-19 PCR [[id number]] Collected: 08/15/22 1150 Lab Status: Final result [...] using the Simplexa COVID-19 Direct Assay by Wistia as authorized by the FDA issued Emergency [...] Department of Pathology and Laboratory Medicine at [facility], certified under the Clinical Laboratory Improvement Amendments [...] fact sheets at the following FDA website: https://www.fda.gov/medical-devices/nxqeybigvax-xeyvfwo-1974-lrgfa-39-wjvjttiaj- jip-jkikwtvbeeqjlg-rcqmliw-devices/lfigo-ijimnbmxfwz-jqzq SARS-CoV-2 Source [employer]OM[employer]AC[employer] MEMBER Swab Lower Respiratory Culture Sputum Induced [[id number]] Collected: 08/15/22 0740 Lab Status: Final result Specimen: Sputum Induced Updated: 08/17/22 1015 Lower Respiratory Culture Rare normal upper respiratory wiley Gram Stain -- Many Neutrophils Few squamous epithelial cells Rare mixed bacterial morphotypes suggestive of normal upper respiratory wiley Blood culture [[id number]] Collected: 08/15/22 0110 Lab Status: Final result Specimen: Blood Updated: 08/20/22 0701 Blood Culture No growth at 5 days. MRSA PCR Screen ([facility]/CGP/APD/NLH) [[id number]] Collected: 08/15/22 0050 Lab Status: Final result Specimen: Nasopharyngeal Swab Updated: 08/17/22 1419 MRSA Result Negative MRSA Interp -- Methicillin-resistant Staphylococcus aureus (MRSA) is NOT DETECTED The MRSA target DNA sequences (mec and SCC) were not detected within the acceptable ranges using the Xpert MRSA NxG on the GeneXpert Dx System ([employer]). This suggests the absence of MRSA in the patient specimen submitted for testing. This test is cleared by the U.S. Food and Drug Administration for clinical use and its performance characteristics have been verified by the [facility] at [facility]. This result does not rule out the presence of any other organisms. Rare false negative results may occur if MRSA is present at low concentrations with much higher concentrations of other organisms including MRSE or S. aureus with an empty SCC cassette. Comment: [VERIFIED DATE]08.17.22 Verified By:Shannon Smiley (Electronic Signature) Blood culture [[id number]] Collected: 08/14/22 5202 Lab Status: Final result Specimen: Blood Updated: [...] who have questions please contact the health animal care taker that requested your imaging first. Electronically signed by: Davi Terry MD, [facility] ([phone]), at 08/15/2022 3:53 AM XR Abdomen 1 view (Generic) (Exam [...] who have questions please contact the health animal care taker that requested your imaging first. Electronically signed by: Liliane [facility] ([phone]), at 08/15/2022 9:05 AM XR Chest One [...] who have questions please contact the health animal care taker that requested your imaging first. Electronically signed by: Davi Terry MD, [facility] ([phone]), at 08/15/2022 3:55 AM XR Abdomen 1 [...] who have questions please contact the health animal care taker that requested your imaging first. Electronically signed by: Davi Terry MD, [facility] ([phone]), at 08/15/2022 6:41 AM XR Chest One [...] who have questions please contact the health animal care taker that requested your imaging first. Electronically signed by: Alfonso Adams MD, [facility] ([phone]), at 08/16/2022 10:[address] Head wo [...] who have questions please contact the health animal care taker that requested your imaging first. Electronically signed by: Moustapha Correa MD, [facility] ([phone]), at 08/16/2022 11:19 PM XR Abdomen 1 [...] who have questions please contact the health animal care taker that requested your imaging first. Head wo Contrast (Generic) (Exam End: 08/18/2022 3:14 PM) Impression No acute intracranial process. Thank you for letting us participate in the care of this patient. If you are a health care provider and have any questions regarding this report, please contact the number below. For patients who have questions please contact the health animal care taker that requested your imaging first. Electronically signed by: Antonio Jordan MD, [facility] ([phone]), at 08/18/2022 3:18 PM XR Chest One [...] who have questions please contact the health animal care taker that requested your imaging first. Electronically signed by: Alan De Guzman MD, [facility] ([phone]), at 08/19/2022 3:14 PM MRI Brain wo Contrast (Exam End: 08/19/2022 10:15 PM) Impression No acute infarction, mass or mass effect. Thank you for letting us participate in the care of this patient. If you are a health care provider and have any questions regarding this report, please contact the number below. For patients who have questions please contact the health animal care taker that requested your imaging first. Electronically signed by: Jagdeep Lee MD, [facility] ([phone]), at 08/20/2022 3:34 AM XR Chest for [...] who have questions please contact the health animal care taker that requested your imaging first. Electronically signed by: Alan De Guzman MD, [facility] ([phone]), at 08/19/2022 4:[address] Hip w [...] who have questions please contact the health animal care taker that requested your imaging first. Electronically signed by: Aicha Chowdhury MD, [facility] ([phone]), at 08/21/2022 9:[address] Chest w [...] who have questions please contact the health animal care taker that requested your imaging first. Electronically signed by: Jagdeep Lee MD, [facility] ([phone]), at 08/21/2022 6:56 AM XR Hip 2-3 Views Left (Exam End: 08/22/2022 12:19 AM) Impression No radiographic evidence of infection. Thank you for letting us participate in the care of this patient. If you are a health care provider and have any questions regarding this report, please contact the number below. For patients who have questions please contact the health animal care taker that requested your imaging first. Electronically signed by: Viktor Cervantes MD, [facility] ([phone]), at 08/22/2022 12:43 PM XR Pelvis (Generic) (Exam End: 08/22/2022 12:19 AM) Impression No radiographic evidence of infection status post left hip ORIF. Thank you for letting us participate in the care of this patient. If you are a health care provider and have any questions regarding this report, please contact the number below. For patients who have questions please contact the health animal care taker that requested your imaging first. Electronically signed by: Richard Billings MD, [facility] ([phone]), at 08/22/2022 10:[address] Angiogram Coronary [...] who have questions please contact the health animal care taker that requested your imaging first. Electronically signed by: Arlette Mays MD, [facility] ([phone]), at 08/27/2022 11:[address] Chest wo Contrast (Generic) (Exam End: 08/27/2022 8:58 AM) Impression Stable findings of multifocal pneumonia. No interval abnormality. Thank you for letting us participate in the care of this patient. If you are a health care provider and have any questions regarding this report, please contact the number below. For patients who have questions please contact the health animal care taker that requested your imaging first. Electronically signed by: MINH QUIROGA MD, [facility] ([phone]), at 08/27/2022 10:48 AM XR Fluoro Barium [...] who have questions please contact the health animal care taker that requested your imaging first. Electronically signed by: Aron Billings MD, [facility] ([phone]), at 08/31/2022 12:02 PM XR Fluoro Barium [...] who have questions please contact the health animal care taker that requested your imaging first. Electronically signed by: Alfonso Adams MD, [facility] ([phone]), at 09/04/2022 10:57 AM XR Abdomen 1 [...] who have questions please contact the health animal care taker that requested your imaging first. Electronically signed by: Jagdeep Lee MD, [facility] ([phone]), at 09/04/2022 10:35 PM XR Chest One [...] who have questions please contact the health animal care taker that requested your imaging first. Electronically signed by: Jagdeep Lee MD, [facility] ([phone]), at 09/04/2022 10:35 PM XR Chest One View (Exam End: 09/05/2022 9:24 AM) Impression 1. Reposition enteric tube now extending below the diaphragm and included rhajw-[id number]-[id number]. 2. Similar appearance of elevated right hemidiaphragm and linear/patchy bibasilar opacities which may represent atelectasis or possibly aspiration. Thank you for letting us participate in the care of this patient. If you are a health care provider and have any questions regarding this report, please contact the number below. For patients who have questions please contact the health animal care taker that requested your imaging first. Electronically signed by: AUDI PERDOMO MD, [facility] ([phone]), at 09/05/2022 3:43 PM XR Abdomen 1 [...] who have questions please contact the health animal care taker that requested your imaging first. Electronically signed by: Camille Garcia MD, [facility] ([phone]), at 09/10/2022 1:16 AM Medications: Scheduled: ??? [...] RD??c/b??esophagitis &??Farrell's esophagus, who was admitted to [facility] on 08/14/2022 (now on Hospital Day #23) [...] her insurance that lacks rehab coverage requiring long-term care medicaid. Her application has been submitted. [...] nightly - C/w valproate 300mg q6h - PLAY BACK OPERATOR following, NPO at present - Psychiatry Consult, [...] status: Attempt Cardiopulmonary Resuscitation - Inpatient Chau Ketih MD Internal Medicine PGY1 Medicine Team: Jose Juan, Pager #[phone] Date: 09/13/2022 Associated attestation - Chong Chao [...] will sign off at this time. Page [phone] with questions/concerns Rayray Platt DO * Jigar Streeter MD - 09/12/2022 7:29 AM EDT Images from the original note were not included. Inpatient Hospital Medicine Progress Note 09/12/2022 Patient Name: ISHAN IRVING Date of : 1960 Age: 62 y.o. Hospital Admit Date: 08/14/2022 Hospital Day: 29 Inpatient Attending: Molina Flores MD PCP: Chris Stanley APRN ([phone]) ID: Ishan Irving is a 62 y.o. 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.5 years) c/b chronic pancreatitis, iron deficiency anemia, ??GERD??c/b??esophagitis &??Farrell's esophagus, who was admitted to [facility] [facility] on 08/14/2022 (now on Hospital Day #29) [...] fellows interpretation Confirmed by fellow Niurka Rose ([id number]) on 09/07/2022 8:45:34 AM Confirmed by MD [...] Date/Time Lower Respiratory Culture Bronchial Alveolar Lavage [[id number]] Collected: 08/21/221649 Lab Status: Final result Specimen: Bronchial Alveolar Lavage Updated: 08/23/22 0741 Lower Respiratory Culture Rare mixed bacterial morphotypes suggestive of normal upper respiratory wiley Gram Stain -- Few Neutrophils seen No squamous epithelial cells seen No microorganisms seen. Fungus Culture & Calc Stain Bronchial Alveolar Lavage [[id number]] (Abnormal) Collected: 08/21/221649 Lab Status: Preliminary result Specimen: Bronchial Alveolar Lavage Updated: 08/24/22 145 AFB culture Bronchial Alveolar Lavage [[id number]] Collected: 08/21/221649 Lab Status: Preliminary result Specimen: Bronchial Alveolar Lavage Updated: 08/24/22 221 Acid Fast Bacilli Culture -- No Acid Fast Bacilli isolated to date If active tuberculosis is suspected, the patient should be on [employer] PRECAUTIONS. Call Infection Prevention for assistance if needed. Acid Fast Stain No Acid Fast Bacilli seen Fungus culture [[id number]] (Abnormal) Collected: 08/21/221649 Lab Status: Preliminary result Specimen: Bronchial Alveolar Lavage Updated: 08/24/22 145 Fungus Culture Rare Jacky albicans Calcofluor White Stain [[id number]] Collected: 08/21/221649 Lab Status: Final result Specimen: Bronchial Alveolar Lavage Updated: 08/21/222015 Calcofluor Stain Calcofluor White Preparation: Negative Lower Respiratory Culture Bronchial Alveolar Lavage [[id number]] Collected: 08/21/221644 Lab Status: Final result Specimen: Bronchial Alveolar Lavage Updated: 08/23/2241 Lower Respiratory Culture Rare mixed bacterial morphotypes suggestive of normal upper respiratory wiley Gram Stain -- Moderate Neutrophils seen No squamous epithelial cells seen No microorganisms seen. Fungus Culture & Calc Stain Bronchial Alveolar Lavage [[id number]] (Abnormal) Collected: 08/21/221644 Lab Status: Preliminary result Specimen: Bronchial Alveolar Lavage Updated: 08/24/22 145 AFB culture Bronchial Alveolar Lavage [[id number]] Collected: 08/21/221644 Lab Status: Preliminary result Specimen: Bronchial Alveolar Lavage Updated: 08/24/222220 Acid Fast Bacilli Culture -- No Acid Fast Bacilli isolated to date If active tuberculosis is suspected, the patient should be on [employer] PRECAUTIONS. Call Infection Prevention for assistance if needed. Acid Fast Stain No Acid Fast Bacilli seen Fungus culture [[id number]] (Abnormal) Collected: 08/21/22 1645 Lab Status: Preliminary result Specimen: Bronchial Alveolar Lavage Updated: 08/24/22 1453 Fungus Culture Rare Jacky albicans Calcofluor White Stain [[id number]] Collected: 08/21/22 164 Lab Status: Final result Specimen: Bronchial Alveolar Lavage Updated: 08/21/22 2017 Calcofluor Stain Calcofluor White Preparation: Negative Blood culture [[id number]] Collected: 08/19/22 1720 Lab Status: Final result Specimen: Blood Updated: 08/24/22 2301 Blood Culture No growth at 5 days. Lower Respiratory Culture Sputum Induced [[id number]] Collected: 08/19/22 1451 Lab Status: Final result Specimen: Sputum Induced Updated: 08/21/22 0948 Lower Respiratory Culture Rare mixed bacterial morphotypes suggestive of normal upper respiratory wiley Gram Stain -- Many Neutrophils seen Few squamous epithelial cells seen No microorganisms seen. Blood culture [[id number]] Collected: 08/19/22 1330 Lab Status: Final result Specimen: Blood Updated: 08/24/22 1501 Blood Culture No growth at 5 days. Legionella Urinary Antigen [[id number]] Collected: 08/18/22 1013 Lab Status: Final result [...] Catheter Urine; Other; sepsis, bacteria on UA [[id number]] Collected: 08/15/22 1225 Lab Status: Final result Specimen: Indwelling Catheter Urine Updated: 08/16/22 0804 Urine Culture 1,000-9,000 cfu/ml Insignificant growth COVID-19 PCR [[id number]] Collected: 08/15/22 1150 Lab Status: Final result [...] using the Simplexa COVID-19 Direct Assay by [employer] as authorized by the FDA issued Emergency [...] Department of Pathology and Laboratory Medicine at [facility], certified under the Clinical Laboratory Improvement Amendments [...] fact sheets at the following FDA website: https://www.fda.gov/medical-devices/skvwtbubhoe-lxapbnt-0960-vdumu-28-gofthbssz- jjx-cdoasnrulshofq-qavysbx-devices/mlani-yptxtecmtet-oews SARS-CoV-2 Source ECONOMICS FACULTY MEMBER Swab Lower Respiratory Culture Sputum Induced [[id number]] Collected: 08/15/22 0740 Lab Status: Final result Specimen: Sputum Induced Updated: 08/17/22 1015 Lower Respiratory Culture Rare normal upper respiratory wiley Gram Stain -- Many Neutrophils Few squamous epithelial cells Rare mixed bacterial morphotypes suggestive of normal upper respiratory wiley Blood culture [[id number]] Collected: 08/15/22 0110 Lab Status: Final result Specimen: Blood Updated: 08/20/22 0701 Blood Culture No growth at 5 days. MRSA PCR Screen ([facility]/CGP/APD/NLH) [[id number]] Collected: 08/15/22 0050 Lab Status: Final result Specimen: Nasopharyngeal Swab Updated: 08/17/22 1419 MRSA Result Negative MRSA Interp -- Methicillin-resistant Staphylococcus aureus (MRSA) is NOT DETECTED The MRSA target DNA sequences (mec and SCC) were not detected within the acceptable ranges using the Xpert MRSA NxG on the GeneXpert Dx System ([employer]). This suggests the absence of MRSA in the patient specimen submitted for testing. This test is cleared by the U.S. Food and Drug Administration for clinical use and its performance characteristics have been verified by the [facility] at [facility]. This result does not rule out the presence of any other organisms. Rare false negative results may occur if MRSA is present at low concentrations with much higher concentrations of other organisms including MRSE or S. aureus with an empty SCC cassette. Comment: [VERIFIED DATE]08.17.22 Verified By:Shannon Smiley (Electronic Signature) Blood culture [[id number]] Collected: 08/14/22 2355 Lab Status: Final result [...] who have questions please contact the health animal care taker that requested your imaging first. Electronically signed by: Davi Terry MD, [facility] ([phone]), at 08/15/2022 3:53 AM XR Abdomen 1 view (Generic) (Exam [...] who have questions please contact the health animal care taker that requested your imaging first. Electronically signed by: Liliane Adams MD, [facility] ([phone]), at 08/15/2022 9:05 AM XR Chest One [...] who have questions please contact the health animal care taker that requested your imaging first. Electronically signed by: Davi Terry MD, [facility] ([phone]), at 08/15/2022 3:55 AM XR Abdomen 1 [...] who have questions please contact the health animal care taker that requested your imaging first. Electronically signed by: Davi Terry MD, [facility] ([phone]), at 08/15/2022 6:41 AM XR Chest One [...] who have questions please contact the health animal care taker that requested your imaging first. Electronically signed by: Alfonso Adams MD, [facility] ([phone]), at 08/16/2022 10:[address] Head wo [...] who have questions please contact the health animal care taker that requested your imaging first. Electronically signed by: Moustapha Correa MD, [facility] ([phone]), at 08/16/2022 11:19 PM XR Abdomen 1 [...] who have questions please contact the health animal care taker that requested your imaging first. Head wo Contrast (Generic) (Exam End: 08/18/2022 3:14 PM) Impression No acute intracranial process. Thank you for letting us participate in the care of this patient. If you are a health care provider and have any questions regarding this report, please contact the number below. For patients who have questions please contact the health animal care taker that requested your imaging first. Electronically signed by: Antonio Jordan MD, [facility] ([phone]), at 08/18/2022 3:18 PM XR Chest One [...] who have questions please contact the health animal care taker that requested your imaging first. Electronically signed by: Alan De Guzman MD, [facility] ([phone]), at 08/19/2022 3:14 PM MRI Brain wo Contrast (Exam End: 08/19/2022 10:15 PM) Impression No acute infarction, mass or mass effect. Thank you for letting us participate in the care of this patient. If you are a health care provider and have any questions regarding this report, please contact the number below. For patients who have questions please contact the health animal care taker that requested your imaging first. Electronically signed by: Jagdeep Lee MD, [facility] ([phone]), at 08/20/2022 3:34 AM XR Chest for [...] who have questions please contact the health animal care taker that requested your imaging first. Electronically signed by: Alan De Guzman MD, [facility] ([phone]), at 08/19/2022 4:[address] Hip w [...] who have questions please contact the health animal care taker that requested your imaging first. Electronically signed by: Aicha Chowdhury MD, [facility] ([phone]), at 08/21/2022 9:[address] Chest w [...] who have questions please contact the health animal care taker that requested your imaging first. Electronically signed by: Jagdeep Lee MD, [facility] ([phone]), at 08/21/2022 6:56 AM XR Hip 2-3 Views Left (Exam End: 08/22/2022 12:19 AM) Impression No radiographic evidence of infection. Thank you for letting us participate in the care of this patient. If you are a health care provider and have any questions regarding this report, please contact the number below. For patients who have questions please contact the health animal care taker that requested your imaging first. Electronically signed by: Viktor Cervantes MD, [facility] ([phone]), at 08/22/2022 12:43 PM XR Pelvis (Generic) (Exam End: 08/22/2022 12:19 AM) Impression No radiographic evidence of infection status post left hip ORIF. Thank you for letting us participate in the care of this patient. If you are a health care provider and have any questions regarding this report, please contact the number below. For patients who have questions please contact the health animal care taker that requested your imaging first. Electronically signed by: Richard Billings MD, [facility] ([phone]), at 08/22/2022 10:[address] Angiogram Coronary [...] who have questions please contact the health animal care taker that requested your imaging first. Electronically signed by: Arlette Mays MD, [facility] ([phone]), at 08/27/2022 11:[address] Chest wo Contrast (Generic) (Exam End: 08/27/2022 8:58 AM) Impression Stable findings of multifocal pneumonia. No interval abnormality. Thank you for letting us participate in the care of this patient. If you are a health care provider and have any questions regarding this report, please contact the number below. For patients who have questions please contact the health animal care taker that requested your imaging first. Electronically signed by: MINH QUIROGA MD, [facility] ([phone]), at 08/27/2022 10:48 AM XR Fluoro Barium [...] who have questions please contact the health animal care taker that requested your imaging first. Electronically signed by: Aron Billings MD, [facility] ([phone]), at 08/31/2022 12:02 PM XR Fluoro Barium [...] who have questions please contact the health animal care taker that requested your imaging first. Electronically signed by: Alfonso Adams MD, [facility] ([phone]), at 09/04/2022 10:57 AM XR Abdomen 1 [...] who have questions please contact the health animal care taker that requested your imaging first. Electronically signed by: Jagdeep Lee MD, [facility] ([phone]), at 09/04/2022 10:35 PM XR Chest One [...] who have questions please contact the health animal care taker that requested your imaging first. Electronically signed by: Jagdeep Lee MD, [facility] ([phone]), at 09/04/2022 10:35 PM XR Chest One View (Exam End: 09/05/2022 9:24 AM) Impression 1. Reposition enteric tube now extending below the diaphragm and included [id number]-sx-[id number]. 2. Similar appearance of elevated right hemidiaphragm and linear/patchy bibasilar opacities which may represent atelectasis or possibly aspiration. Thank you for letting us participate in the care of this patient. If you are a health care provider and have any questions regarding this report, please contact the number below. For patients who have questions please contact the health animal care taker that requested your imaging first. Electronically signed by: AUDI PERDOMO MD, [facility] ([phone]), at 09/05/2022 3:43 PM XR Abdomen 1 [...] who have questions please contact the health animal care taker that requested your imaging first. Electronically signed by: Camille Garcia MD, [facility] ([phone]), at 09/10/2022 1:16 AM Medications: Scheduled: ??? [...] RD??c/b??esophagitis &??Farrell's esophagus, who was admitted to [facility] [facility] on 08/14/2022 (now on Hospital Day #23) [...] her insurance that lacks rehab coverage requiring long-term care medicaid. Her application has been submitted. Today's plan: - restart tube feeds via G tube - transition medications to G tube - adjust insulin regimen as appropriate and monitor for refeeding syndrome # Bipolar Disorder - Continue Seroquel 100mg nightly - C/w valproate 300mg q6h - PLAY BACK OPERATOR following, NPO at present - Psychiatry Consult, [...] Medicine PGY2 Medicine Team: Jose Juan, Pager #[phone] Date: 09/12/2022 Associated attestation - Chong Chao MD - 09/12/2022 9:10 PM EDT Hospital Medicine Service Attending Documentation I certify that I am a [facility] credentialed attending provider with admitting privileges and that the patient meets or has met medical necessity to require an inpatient IPI level of care meeting a minimumof two midnights or is on the [facility] inpatient only procedure list (status C) [...] bipolar, DM, EtOH, esophagitis, who presented to [facility] 3 days ago after being found unresponsive at home.?Patient found to have likely pneumonia+/- aspiration, newly reduced EF. Reason for intervention: Follow up Nutrition Recommendations: ?? S/p PEG placement, resume current TF: Cyclic Peptamen AF??at 90ml/hr for 14 hrs from 8212-5430 (pended). At goal, this will provide: Peptamen [...] p.o. Intake, etc. ?? Po diet per PLAY BACK OPERATOR (recs 09/04 NPO s/p MBS) ?? Continue 50,000 units vitamin D weekly; 1000 mcg folic acid and 100 mg thiamine daily. ?? Off unit in IR for PEG placement at time of my visit. THANKS Wilda Blankenship RD Pager #:[phone] * Mary Penny RN - 09/11/2022 1:35 PM EDT Called to see Ishan Irving who is a 62 y.o., female by nursing team supervisor RM at the requestof charge nurse on unit. Referring provider: Chau Keith MD Date of Referral: 09/10 (unable to get done 09/10 therefore done 09/11) for a small bore insertion team consult. Admission Date/Time: 08/14/22 Hospital Day:28 Admitting Diagnosis:shock, multifocal pneumonia, and a newly reduced LVEF. Ordering Physician: Chau Keith MD Indication:Tube feeding, multimedia educational specialist Weighted or Not Weighted: weighted Ordered destination: [...] Alicia Gillis - 09/11/2022 11:10 AM EDTSumemanuely: Paving Supervisor Care [place] Ret[place] Care application (Form 202LTC) completed on 09/11/2022 Authorized Fishing Vessel Mate Form (Form 139REP) completed and designated to Antonio Irving and Alicia Gillis Copy made of all application documents. Statement of Understand for Choices for Care Paving Supervisor Medicaid provided to patient/family. Submitted all documents to [place] DCF/ESD Application and Document Processing Center via [place]'s [employer] on 09/11/2022 for submission and processing. Anticipated Timeline: ??? LTC application should be acknowledged by [place]'s Department [facility] Access and Disabilities, Aging and Independent Living ([facility]) within 1-10 business days dependent on method of the application's submission. ??? Then, the [place] insurance follow up representative aka [facility] RN assigned will contact [facility] Hospital to request clinicaldocumentation to submit to them for the clinical assessment they will complete. ??? The results from the clinical assessment by the [facility] RN assigned will be forwarded to the [facility] Financial Mash Processing Operator (FBS) assigned to conduct the application intake process with date & time for the mandatory Phone Eligibility Interview. ??? Next, the FBS will conduct the intake interview with the applicant or applicant's Authorized Fishing Vessel Mate and generate a list of proofs or verifications required for [facility] to move through the application process for [...] time the applicant has been discharged from [facility] for which outcomes can vary between 1 to 4 months based on individual case complexities. * Alicia Glez, LUMBER PILER - 09/11/2022 10:50 AM EDT Occupational Therapy Treatment Note Treatment Number OT: 5 Patient Dx: Ishan Irving??is a 62 y.o.??female??admitted on 08/14/2022??with a medical history notable for??recent L femoral neck fracture,??bipolar disorder, resolving medication-induced Parkinsonism, insulin- dependent diabetes mellitus,??hx of alcohol use disorder (reported to be in remission for 1.5 years) c/b chronic pancreatitis, iron deficiency anemia,??GERD??c/b??esophagitis &??Farrell's esophagus??presenting in transfer from [facility], suspected to be in cardiogenic shock and [...] Therapy: 48 (x2 schm, x1 thera act [id number]) Pager: [phone] DANIELA Montes 09/11/2022 Occupational Therapy Rehabilitation Department * Briana Bryant, PLAY BACK OPERATOR - 09/11/2022 10:13 AM EDT Speech-Language Pathology Consult Note Ishan Irving is a 62 year old female with a medical history notable for??recent L femoral neck fracture,??bipolar disorder, resolving medication- induced Parkinsonism, insulin-dependent diabetesmellitus,??hx of alcohol use disorder (reported to be in remission for 1.5 years) c/b chronic pancreatitis, iron deficiency anemia,??GERD??c/b??esophagitis &??Farrell's esophagus??presenting in transfer from [facility]??on 08/14/2022, suspected to be in cardiogenic shock and found to be in mixed shock with concern for stress cardiomyopathy.??PLAY BACK OPERATOR following for swallow, cognitive tx. MBS completed [...] placement as well as GJ tube placement. PLAY BACK OPERATOR team has been following pt for dysphagia in ICU. Transferred to floor on 09/07/22. PLAY BACK OPERATOR have been unable to work w/ Pt on PO trials due to NPO for potential PEG, and now GJ tube. Was cleared to takesmall amounts of ice chips yesterday, pt seen, however had emesis episode w/ ice chips at that time. RN states pt NPO for potential surgery again today, DHT to be replaced for medication passes in mean time as per RN.. PLAY BACK OPERATOR team will continue to monitor. Briana Bryant MA [facility]-PLAY BACK OPERATOR Inpatient Rehabilitation Medicine pager:# [phone] * Chau Keith MD - 09/11/2022 6:15 AM EDT Images from the original note were not included. Inpatient Hospital Medicine Progress Note 09/11/2022 Patient Name: ISHAN IRVING Date of : 1960 Age: 62 y.o. Hospital Admit Date: 08/14/2022 Hospital Day: 28 Inpatient Attending: Molina Flores MD PCP: Chris Stanley APRN ([phone]) ID: Ishan Irving is a 62 y.o. 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.5 years) c/b chronic pancreatitis, iron deficiency anemia, ??GERD??c/b??esophagitis &??Farrell's esophagus, who was admitted to [facility] on 08/14/2022 (now on Hospital Day #28) [...] fellows interpretation Confirmed by fellow Niurka Rose ([id number]) on 09/07/2022 8:45:34 AM Confirmed by MD [...] Date/Time Lower Respiratory Culture Bronchial Alveolar Lavage [[id number]] Collected: 08/21/221649 Lab Status: Final result Specimen: Bronchial Alveolar Lavage Updated: 08/23/22 0741 Lower Respiratory Culture Rare mixed bacterial morphotypes suggestive of normal upper respiratory wiley Gram Stain -- Few Neutrophils seen No squamous epithelial cells seen No microorganisms seen. Fungus Culture & Calc Stain Bronchial Alveolar Lavage [[id number]] (Abnormal) Collected: 08/21/221649 Lab Status: Preliminary result Specimen: Bronchial Alveolar Lavage Updated: 08/24/22 1452 AFB culture Bronchial Alveolar Lavage [[id number]] Collected: 08/21/221649 Lab Status: Preliminary result Specimen: Bronchial Alveolar Lavage Updated: 08/24/22 2219 Acid Fast Bacilli Culture -- No Acid Fast Bacilli isolated to date If active tuberculosis is suspected, the patient should be on AIRBORNE PRECAUTIONS. Call Infection Prevention for assistance if needed. Acid Fast Stain No Acid Fast Bacilli seen Fungus culture [[id number]] (Abnormal) Collected: 08/21/221649 Lab Status: Preliminary result Specimen: Bronchial Alveolar Lavage Updated: 08/24/22 145 Fungus Culture Rare Jacky albicans Calcofluor White Stain [[id number]] Collected: 08/21/221649 Lab Status: Final result Specimen: Bronchial Alveolar Lavage Updated: 08/21/222015 Calcofluor Stain Calcofluor White Preparation: Negative Lower Respiratory Culture Bronchial Alveolar Lavage [[id number]] Collected: 08/21/221644 Lab Status: Final result Specimen: Bronchial Alveolar Lavage Updated: 08/23/22 0741 Lower Respiratory Culture Rare mixed bacterial morphotypes suggestive of normal upper respiratory wiley Gram Stain -- Moderate Neutrophils seen No squamous epithelial cells seen No microorganisms seen. Fungus Culture & Calc Stain Bronchial Alveolar Lavage [[id number]] (Abnormal) Collected: 08/21/221644 Lab Status: Preliminary result Specimen: Bronchial Alveolar Lavage Updated: 08/24/22 1453 AFB culture Bronchial Alveolar Lavage [[id number]] Collected: 08/21/221644 Lab Status: Preliminary result Specimen: Bronchial Alveolar Lavage Updated: 08/24/22 2221 Acid Fast Bacilli Culture -- No Acid Fast Bacilli isolated to date If active tuberculosis is suspected, the patient should be on AIRBORNE PRECAUTIONS. Call Infection Prevention for assistance if needed. Acid Fast Stain No Acid Fast Bacilli seen Fungus culture [[id number]] (Abnormal) Collected: 08/21/221644 Lab Status: Preliminary result Specimen: Bronchial Alveolar Lavage Updated: 08/24/22 145 Fungus Culture Rare Jacky albicans Calcofluor White Stain [[id number]] Collected: 08/21/221644 Lab Status: Final result Specimen: Bronchial Alveolar Lavage Updated: 08/21/222016 Calcofluor Stain Calcofluor White Preparation: Negative Blood culture [[id number]] Collected: 08/19/22 1720 Lab Status: Final result Specimen: Blood Updated: 08/24/22 2301 Blood Culture No growth at 5 days. Lower Respiratory Culture Sputum Induced [[id number]] Collected: 08/19/22 1451 Lab Status: Final result Specimen: Sputum Induced Updated: 08/21/22 0948 Lower Respiratory Culture Rare mixed bacterial morphotypes suggestive of normal upper respiratory wiley Gram Stain -- Many Neutrophils seen Few squamous epithelial cells seen No microorganisms seen. Blood culture [[id number]] Collected: 08/19/22 1330 Lab Status: Final result Specimen: Blood Updated: 08/24/22 1501 Blood Culture No growth at 5 days. Legionella Urinary Antigen [[id number]] Collected: 08/18/22 1013 Lab Status: Final result [...] Catheter Urine; Other; sepsis, bacteria on UA [[id number]] Collected: 08/15/22 1225 Lab Status: Final result Specimen: Indwelling Catheter Urine Updated: 08/16/22 0804 Urine Culture 1,000-9,000 cfu/ml Insignificant growth COVID-19 PCR [[id number]] Collected: 08/15/22 1150 Lab Status: Final result [...] using the Simplexa COVID-19 Direct Assay by [employer] as authorized by the FDA issued Emergency [...] Department of Pathology and Laboratory Medicine at [facility], certified under the Clinical Laboratory Improvement Amendments [...] fact sheets at the following FDA website: https://www.fda.gov/medical-devices/csoxlcbesrg-totlflq-8811-comxa-16-yebwgevic- fdb-jrhimygtjvuvzs-jzeornd-devices/kbjkv-hjnhiovtoed-ukwd SARS-CoV-2 Source ECONOMICS FACULTY MEMBER Swab Lower Respiratory Culture Sputum Induced [[id number]] Collected: 08/15/22 0740 Lab Status: Final result Specimen: Sputum Induced Updated: 08/17/22 1015 Lower Respiratory Culture Rare normal upper respiratory wiley Gram Stain -- Many Neutrophils Few squamous epithelial cells Rare mixed bacterial morphotypes suggestive of normal upper respiratory wiley Blood culture [[id number]] Collected: 08/15/22 0110 Lab Status: Final result Specimen: Blood Updated: 08/20/22 0701 Blood Culture No growth at 5 days. MRSA PCR Screen ([facility]/CGP/APD/NLH) [[id number]] Collected: 08/15/22 0050 Lab Status: Final result Specimen: Nasopharyngeal Swab Updated: 08/17/22 1419 MRSA Result Negative MRSA Interp -- Methicillin-resistant Staphylococcus aureus (MRSA) is NOT DETECTED The MRSA target DNA sequences (mec and SCC) were not detected within the acceptable ranges using the Xpert MRSA NxG on the GeneXpert Dx System ([employer]). This suggests the absence of MRSA in the patient specimen submitted for testing. This test is cleared by the U.S. Food and Drug Administration for clinical use and its performance characteristics have been verified by the [facility] at [facility]. This result does not rule out the presence of any other organisms. Rare false negative results may occur if MRSA is present at low concentrations with much higher concentrations of other organisms including MRSE or S. aureus with an empty SCC cassette. Comment: [VERIFIED DATE]08.17.22 Verified By:Shannon Smiley (Electronic Signature) Blood culture [[id number]] Collected: 08/14/22 4084 Lab Status: Final result Specimen: Blood Updated: [...] who have questions please contact the health animal care taker that requested your imaging first. Electronically signed by: Davi Terry MD, [facility] ([phone]), at 08/15/2022 3:53 AM XR Abdomen 1 view (Generic) (Exam [...] who have questions please contact the health animal care taker that requested your imaging first. Electronically signed by: Lliiane Adams MD, [facility] ([phone]), at 08/15/2022 9:05 AM XR Chest One [...] who have questions please contact the health animal care taker that requested your imaging first. Electronically signed by: Davi Terry MD, [facility] ([phone]), at 08/15/2022 3:55 AM XR Abdomen 1 [...] who have questions please contact the health animal care taker that requested your imaging first. Electronically signed by: Davi Terry MD, [facility] ([phone]), at 08/15/2022 6:41 AM XR Chest One [...] who have questions please contact the health animal care taker that requested your imaging first. Electronically signed by: Alfonso Adams MD, [facility] ([phone]), at 08/16/2022 10:[address] Head wo [...] who have questions please contact the health animal care taker that requested your imaging first. Electronically signed by: Moustapha Correa MD, [facility] ([phone]), at 08/16/2022 11:19 PM XR Abdomen 1 [...] who have questions please contact the health animal care taker that requested your imaging first. Head wo Contrast (Generic) (Exam End: 08/18/2022 3:14 PM) Impression No acute intracranial process. Thank you for letting us participate in the care of this patient. If you are a health care provider and have any questions regarding this report, please contact the number below. For patients who have questions please contact the health animal care taker that requested your imaging first. Electronically signed by: Antonio Jordan MD, [facility] ([phone]), at 08/18/2022 3:18 PM XR Chest One [...] who have questions please contact the health animal care taker that requested your imaging first. Electronically signed by: Alan De Guzman MD, [facility] ([phone]), at 08/19/2022 3:14 PM MRI Brain wo Contrast (Exam End: 08/19/2022 10:15 PM) Impression No acute infarction, mass or mass effect. Thank you for letting us participate in the care of this patient. If you are a health care provider and have any questions regarding this report, please contact the number below. For patients who have questions please contact the health animal care taker that requested your imaging first. Electronically signed by: Jagdeep Lee MD, [facility] ([phone]), at 08/20/2022 3:34 AM XR Chest for [...] who have questions please contact the health animal care taker that requested your imaging first. Electronically signed by: Alan De Guzman MD, [facility] ([phone]), at 08/19/2022 4:[address] Hip w [...] who have questions please contact the health animal care taker that requested your imaging first. Electronically signed by: Aicha Chowdhury MD, [facility] ([phone]), at 08/21/2022 9:[address] Chest w [...] who have questions please contact the health animal care taker that requested your imaging first. Electronically signed by: Jagdeep Lee MD, [facility] ([phone]), at 08/21/2022 6:56 AM XR Hip 2-3 Views Left (Exam End: 08/22/2022 12:19 AM) Impression No radiographic evidence of infection. Thank you for letting us participate in the care of this patient. If you are a health care provider and have any questions regarding this report, please contact the number below. For patients who have questions please contact the health animal care taker that requested your imaging first. Electronically signed by: Viktor Cervantes MD, [facility] ([phone]), at 08/22/2022 12:43 PM XR Pelvis (Generic) (Exam End: 08/22/2022 12:19 AM) Impression No radiographic evidence of infection status post left hip ORIF. Thank you for letting us participate in the care of this patient. If you are a health care provider and have any questions regarding this report, please contact the number below. For patients who have questions please contact the health animal care taker that requested your imaging first. Electronically signed by: Richard Billings MD, [facility] ([phone]), at 08/22/2022 10:[address] Angiogram Coronary [...] who have questions please contact the health animal care taker that requested your imaging first. Electronically signed by: Arlette Mays MD, [facility] ([phone]), at 08/27/2022 11:[address] Chest wo Contrast (Generic) (Exam End: 08/27/2022 8:58 AM) Impression Stable findings of multifocal pneumonia. No interval abnormality. Thank you for letting us participate in the care of this patient. If you are a health care provider and have any questions regarding this report, please contact the number below. For patients who have questions please contact the health animal care taker that requested your imaging first. Electronically signed by: MINH QUIROGA MD, [facility] ([phone]), at 08/27/2022 10:48 AM XR Fluoro Barium [...] who have questions please contact the health animal care taker that requested your imaging first. Electronically signed by: Aron Billings MD, [facility] ([phone]), at 08/31/2022 12:02 PM XR Fluoro Barium [...] who have questions please contact the health animal care taker that requested your imaging first. Electronically signed by: Alfonso Adams MD, [facility] ([phone]), at 09/04/2022 10:57 AM XR Abdomen 1 [...] who have questions please contact the health animal care taker that requested your imaging first. Electronically signed by: Jagdeep Lee MD, [facility] ([phone]), at 09/04/2022 10:35 PM XR Chest One [...] who have questions please contact the health animal care taker that requested your imaging first. Electronically signed by: Jagdeep Lee MD, [facility] ([phone]), at 09/04/2022 10:35 PM XR Chest One View (Exam End: 09/05/2022 9:24 AM) Impression 1. Reposition enteric tube now extending below the diaphragm and included [id number]. 2. Similar appearance of elevated right hemidiaphragm and linear/patchy bibasilar opacities which may represent atelectasis or possibly aspiration. Thank you for letting us participate in the care of this patient. If you are a health care provider and have any questions regarding this report, please contact the number below. For patients who have questions please contact the health animal care taker that requested your imaging first. Electronically signed by: AUDI PERDOMO MD, [facility] ([phone]), at 09/05/2022 3:43 PM XR Abdomen 1 [...] who have questions please contact the health animal care taker that requested your imaging first. Electronically signed by: Camille Garcia MD, [facility] ([phone]), at 09/10/2022 1:16 AM Medications: Scheduled: ??? [...] RD??c/b??esophagitis &??Farrell's esophagus, who was admitted to [facility] on 08/14/2022 (now on Hospital Day #23) [...] that she should continue to work with PT/OT/PLAY BACK OPERATOR/nursing but that the most recent assessments still [...] discharge - C/w valproate 300mg q6h - PLAY BACK OPERATOR following, NPO at present - Psychiatry Consult, [...] Medicine PGY1 Medicine Team: Jose Juan, Pager #[phone] Date: 09/11/2022 Associated attestation - Molina Flores [...] of two midnights or is on the [facility] inpatient only procedure list (status C) [...] PLAN GOAL OUTCOME EVALUATION: * Briana Bryant, PLAY BACK OPERATOR - 09/10/2022 12:44 PM EDT Speech Therapy Note Patient Profile:??Ishan Irving is a 62 year old female with a medical history notable for??recent L femoral neck fracture,??bipolar disorder, resolving medication-induced Parkinsonism, insulin-dependent diabetes mellitus,??hx of alcohol use disorder (reported to be in remission for 1.5 years)c/b chronic pancreatitis, iron deficiency anemia,??GERD??c/b??esophagitis &??Farrell's esophagus??presenting in transfer from [facility]??on 08/14/2022, suspected to be in cardiogenic shock and found to be in mixed shock with concern for stress cardiomyopathy.??PLAY BACK OPERATOR following for swallow, cognitive tx. MBS completed [...] x1 of 8 ice chip trials w/ PLAY BACK OPERATOR; refer to Gastroenterology note for further information. Education: Pt educated on results and recommendations, discussed with nursing. Assessment: Pt was seen today for a follow-up PLAY BACK OPERATOR visit. Pt w/ ongoing moderate- severe dysphagia [...] assist from??staff as needed Plan: Therapy Frequency (PLAY BACK OPERATOR Eval): 2-4 times/wk Pt./family are in agreement with treatment plan. Total Minutes (Speech Language Pathology): 12 Thank you for this consult with this patient. Please feel free to message me with any questions or concerns. Doe Juarez Director Software Development Clinician Speech-Language Pathology Patient status, treatment interventions, and goals discussed with student. I am in agreement with note as documented and was present for all aspects of the patient treatment session. Briana Bryant MA, [facility]-PLAY BACK OPERATOR Pager: [phone] Speech-Language Pathology Inpatient Rehabilitation Medicine * Marybeth Shelley RN - 09/10/2022 11:29 AM EDTSummary: [facility] Medicaid Referral Identification of Retirement Care Medicaid insurance coverage IS required to facilitate this hospital discharge and was determined due to the following circumstances: Patient is in need of rehab at discharge prior to returning home with . Current insurance plan is [place] Primary [employer] [place], this plan does not have rehab coverage. Confirmed with spouse that they DO NOT have [employer] [place] Medicaid coverage for [place] residents or [employer] [place] Medicaid coverage for [place] residents and that an application for these specific Retirement Care Medicaid programs HAVE NOT been submitted to their State of Residence to date for enrollment. Conversation with patient and/or patient advocate regarding the need for Retirement Care Medicaid insurance coverage was conducted on 09/10/2022 and a referral has been made to the Care Management Maintenance And Engineering Manager for Retirement Care Medicaid insurance assistance and/or enrollment on 09/10/2022. Marybeth Shelley RN, BSN Internal Medicine Doctor - Medicine Office of Care Management Office: Pager: [phone] * Minh Catnu MD - 09/10/2022 11:00 AM EDT General [...] RD??c/b??esophagitis &??Farrell's esophagus, who was admitted to [facility] on 08/14/2022 (now on Hospital Day #21), [...] deficiency anemia,??GERD??c/b??esophagitis &??Farrell's esophagus??presenting in transfer from [facility], suspected to be in cardiogenic shock and found to be in mixed shock with concern for stress cardiomyopathy. She is s/p ORIF left femoral neck fracture ~ 4/ at OSH. Interval History: Transferred to [facility], attempted PEG placement 09/09, unsuccessful d/t [...] the current findings, Anticipated Discharge Disposition (PT): group home facility when medically ready for hospital discharge. [...] plan as stated. Time IN / OUT: 0754-1204 Total Minutes, Physical Therapy: 42 Billing Code: TA x3 Trell Sanford, PT, DPT Pager: [phone] Physical Therapy Inpatient Rehabilitation Department * Lucia [...] Last revised on 03/10/22 #3, per recent PLAY BACK OPERATOR note on 09/04 - Addendum: PLAY BACK OPERATOR returned to pt's room at 1230 to [...] and agreement with thetreatment plan and informed PLAY BACK OPERATOR of her continued goal to resume consuming [...] Molina Flores MD PCP: Chris Stanley APRN ([phone]) ID: Ishan Irving is a 62 y.o. 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.5 years) c/b chronic pancreatitis, iron deficiency anemia, ??GERD??c/b??esophagitis &??Farrell's esophagus, who was admitted to [facility] on 08/14/2022 (now on Hospital Day #27) [...] fellows interpretation Confirmed by fellow Niurka Rose ([id number]) on 09/07/2022 8:45:34 AM Confirmed by MD [...] Date/Time Lower Respiratory Culture Bronchial Alveolar Lavage [[id number]] Collected: 08/21/221649 Lab Status: Final result Specimen: Bronchial Alveolar Lavage Updated: 08/23/22 0741 Lower Respiratory Culture Rare mixed bacterial morphotypes suggestive of normal upper respiratory wiley Gram Stain -- Few Neutrophils seen No squamous epithelial cells seen No microorganisms seen. Fungus Culture & Calc Stain Bronchial Alveolar Lavage [[id number]] (Abnormal) Collected: 08/21/221649 Lab Status: Preliminary result Specimen: Bronchial Alveolar Lavage Updated: 08/24/22 1452 AFB culture Bronchial Alveolar Lavage [[id number]] Collected: 08/21/221649 Lab Status: Preliminary result Specimen: Bronchial Alveolar Lavage Updated: 08/24/22 2219 Acid Fast Bacilli Culture -- No Acid Fast Bacilli isolated to date If active tuberculosis is suspected, the patient should be on AIRBOR[employer] PRECAUTIONS. Call Infection Prevention for assistance if needed. Acid Fast Stain No Acid Fast Bacilli seen Fungus culture [[id number]] (Abnormal) Collected: 08/21/221649 Lab Status: Preliminary result Specimen: Bronchial Alveolar Lavage Updated: 08/24/22 145 Fungus Culture Rare Jacky albicans Calcofluor White Stain [[id number]] Collected: 08/21/221649 Lab Status: Final result Specimen: Bronchial Alveolar Lavage Updated: 08/21/222015 Calcofluor Stain Calcofluor White Preparation: Negative Lower Respiratory Culture Bronchial Alveolar Lavage [[id number]] Collected: 08/21/221644 Lab Status: Final result Specimen: Bronchial Alveolar Lavage Updated: 08/23/2241 Lower Respiratory Culture Rare mixed bacterial morphotypes suggestive of normal upper respiratory wiley Gram Stain -- Moderate Neutrophils seen No squamous epithelial cells seen No microorganisms seen. Fungus Culture & Calc Stain Bronchial Alveolar Lavage [[id number]] (Abnormal) Collected: 08/21/221644 Lab Status: Preliminary result Specimen: Bronchial Alveolar Lavage Updated: 08/24/22 1453 AFB culture Bronchial Alveolar Lavage [[id number]] Collected: 08/21/221644 Lab Status: Preliminary result Specimen: Bronchial Alveolar Lavage Updated: 08/24/22 222 Acid Fast Bacilli Culture -- No Acid Fast Bacilli isolated to date If active tuberculosis is suspected, the patient should be on AIRBORNE PRECAUTIONS. Call Infection Prevention for assistance if needed. Acid Fast Stain No Acid Fast Bacilli seen Fungus culture [[id number]] (Abnormal) Collected: 08/21/22 1645 Lab Status: Preliminary result Specimen: Bronchial Alveolar Lavage Updated: 08/24/22 1453 Fungus Culture Rare Jacky albicans Calcofluor White Stain [[id number]] Collected: 08/21/22 164 Lab Status: Final result Specimen: Bronchial Alveolar Lavage Updated: 08/21/22 2017 Calcofluor Stain Calcofluor White Preparation: Negative Blood culture [[id number]] Collected: 08/19/22 1720 Lab Status: Final result Specimen: Blood Updated: 08/24/22 2301 Blood Culture No growth at 5 days. Lower Respiratory Culture Sputum Induced [[id number]] Collected: 08/19/22 1451 Lab Status: Final result Specimen: Sputum Induced Updated: 08/21/22 0948 Lower Respiratory Culture Rare mixed bacterial morphotypes suggestive of normal upper respiratory wiley Gram Stain -- Many Neutrophils seen Few squamous epithelial cells seen No microorganisms seen. Blood culture [[id number]] Collected: 08/19/22 1330 Lab Status: Final result Specimen: Blood Updated: 08/24/22 1501 Blood Culture No growth at 5 days. Legionella Urinary Antigen [[id number]] Collected: 08/18/22 1013 Lab Status: Final result [...] Catheter Urine; Other; sepsis, bacteria on UA [[id number]] Collected: 08/15/22 1225 Lab Status: Final result Specimen: Indwelling Catheter Urine Updated: 08/16/22 0804 Urine Culture 1,000-9,000 cfu/ml Insignificant growth COVID-19 PCR [[id number]] Collected: 08/15/22 1150 Lab Status: Final result [...] using the Simplexa COVID-19 Direct Assay by [employer] as authorized by the FDA issued Emergency [...] Department of Pathology and Laboratory Medicine at [facility], certified under the Clinical Laboratory Improvement Amendments [...] fact sheets at the following FDA website: https://www.fda.gov/medical-devices/proekelhaaj-sixmhqz-7943-szzto-43-wfcodruyh- obd-uvxtzkukmvkytm-zifyvsj-devices/jlgtp-pyqqjlebzwd-shlu SARS-CoV-2 Source ECONOMICS FACULTY MEMBER Swab Lower Respiratory Culture Sputum Induced [[id number]] Collected: 08/15/22 0740 Lab Status: Final result Specimen: Sputum Induced Updated: 08/17/22 1015 Lower Respiratory Culture Rare normal upper respiratory wiley Gram Stain -- Many Neutrophils Few squamous epithelial cells Rare mixed bacterial morphotypes suggestive of normal upper respiratory wiley Blood culture [[id number]] Collected: 08/15/22 0110 Lab Status: Final result Specimen: Blood Updated: 08/20/22 0701 Blood Culture No growth at 5 days. MRSA PCR Screen ([facility] [place]/CGP/APD/NLH) [[id number]] Collected: 08/15/22 0050 Lab Status: Final result Specimen: Nasopharyngeal Swab Updated: 08/17/22 1419 MRSA Result Negative MRSA Interp -- Methicillin-resistant Staphylococcus aureus (MRSA) is NOT DETECTED The MRSA target DNA sequences (mec and SCC) were not detected within the acceptable ranges using the Xpert MRSA NxG on the GeneXpert Dx System ([employer]). This suggests the absence of MRSA in the patient specimen submitted for testing. This test is cleared by the U.S. Food and Drug Administration for clinical use and its performance characteristics have been verified by the [facility] at [facility]. This result does not rule out the presence of any other organisms. Rare false negative results may occur if MRSA is present at low concentrations with much higher concentrations of other organisms including MRSE or S. aureus with an empty SCC cassette. Comment: [VERIFIED DATE]08.17.22 Verified By:Shannon Smiley (Electronic Signature) Blood culture [[id number]] Collected: 08/14/22 2355 Lab Status: Final result [...] who have questions please contact the health animal care taker that requested your imaging first. Electronically signed by: Davi Terry MD, [facility] ([phone]), at 08/15/2022 3:53 AM XR Abdomen 1 view (Generic) (Exam [...] who have questions please contact the health animal care taker that requested your imaging first. Electronically signed by: Liliane Adams MD, [facility] ([phone]), at 08/15/2022 9:05 AM XR Chest One [...] who have questions please contact the health animal care taker that requested your imaging first. Electronically signed by: Davi Terry MD, [facility] ([phone]), at 08/15/2022 3:55 AM XR Abdomen 1 [...] who have questions please contact the health animal care taker that requested your imaging first. Electronically signed by: Davi Terry MD, [facility] ([phone]), at 08/15/2022 6:41 AM XR Chest One [...] who have questions please contact the health animal care taker that requested your imaging first. Electronically signed by: Alfonso Adams MD, [facility] ([phone]), at 08/16/2022 10:[address] Head wo [...] who have questions please contact the health animal care taker that requested your imaging first. Electronically signed by: Moustapha Correa MD, [facility] ([phone]), at 08/16/2022 11:19 PM XR Abdomen 1 [...] who have questions please contact the health animal care taker that requested your imaging first. Head wo Contrast (Generic) (Exam End: 08/18/2022 3:14 PM) Impression No acute intracranial process. Thank you for letting us participate in the care of this patient. If you are a health care provider and have any questions regarding this report, please contact the number below. For patients who have questions please contact the health animal care taker that requested your imaging first. Electronically signed by: Antonio Jordan MD, [facility] ([phone]), at 08/18/2022 3:18 PM XR Chest One [...] who have questions please contact the health animal care taker that requested your imaging first. Electronically signed by: Alan De Guzman MD, [facility] ([phone]), at 08/19/2022 3:14 PM MRI Brain wo Contrast (Exam End: 08/19/2022 10:15 PM) Impression No acute infarction, mass or mass effect. Thank you for letting us participate in the care of this patient. If you are a health care provider and have any questions regarding this report, please contact the number below. For patients who have questions please contact the health animal care taker that requested your imaging first. Electronically signed by: Jagdeep Lee MD, [facility] ([phone]), at 08/20/2022 3:34 AM XR Chest for [...] who have questions please contact the health animal care taker that requested your imaging first. Electronically signed by: Alan De Guzman MD, [facility] ([phone]), at 08/19/2022 4:[address] Hip w [...] who have questions please contact the health animal care taker that requested your imaging first. Electronically signed by: Aicha Chowdhury MD, [facility] ([phone]), at 08/21/2022 9:[address] Chest w [...] who have questions please contact the health animal care taker that requested your imaging first. Electronically signed by: Jagdeep Lee MD, [facility] ([phone]), at 08/21/2022 6:56 AM XR Hip 2-3 Views Left (Exam End: 08/22/2022 12:19 AM) Impression No radiographic evidence of infection. Thank you for letting us participate in the care of this patient. If you are a health care provider and have any questions regarding this report, please contact the number below. For patients who have questions please contact the health animal care taker that requested your imaging first. Electronically signed by: Viktor Cervantes MD, [facility] ([phone]), at 08/22/2022 12:43 PM XR Pelvis (Generic) (Exam End: 08/22/2022 12:19 AM) Impression No radiographic evidence of infection status post left hip ORIF. Thank you for letting us participate in the care of this patient. If you are a health care provider and have any questions regarding this report, please contact the number below. For patients who have questions please contact the health animal care taker that requested your imaging first. Electronically signed by: Richard Billings MD, [facility] ([phone]), at 08/22/2022 10:[address] Angiogram Coronary [...] who have questions please contact the health animal care taker that requested your imaging first. Electronically signed by: Arlette Mays MD, [facility] ([phone]), at 08/27/2022 11:[address] Chest wo Contrast (Generic) (Exam End: 08/27/2022 8:58 AM) Impression Stable findings of multifocal pneumonia. No interval abnormality. Thank you for letting us participate in the care of this patient. If you are a health care provider and have any questions regarding this report, please contact the number below. For patients who have questions please contact the health animal care taker that requested your imaging first. Electronically signed by: MINH QUIROGA MD, [facility] ([phone]), at 08/27/2022 10:48 AM XR Fluoro Barium [...] who have questions please contact the health animal care taker that requested your imaging first. Electronically signed by: Aron Billings MD, [facility] ([phone]), at 08/31/2022 12:02 PM XR Fluoro Barium [...] who have questions please contact the health animal care taker that requested your imaging first. Electronically signed by: Alfonso Adams MD, [facility] ([phone]), at 09/04/2022 10:57 AM XR Abdomen 1 [...] who have questions please contact the health animal care taker that requested your imaging first. Electronically signed by: Jagdeep Lee MD, [facility] ([phone]), at 09/04/2022 10:35 PM XR Chest One [...] who have questions please contact the health animal care taker that requested your imaging first. Electronically signed by: Jagdeep Lee MD, [facility] ([phone]), at 09/04/2022 10:35 PM XR Chest One View (Exam End: 09/05/2022 9:24 AM) Impression 1. Reposition enteric tube now extending below the diaphragm and included [id number]. 2. Similar appearance of elevated right hemidiaphragm and linear/patchy bibasilar opacities which may represent atelectasis or possibly aspiration. Thank you for letting us participate in the care of this patient. If you are a health care provider and have any questions regarding this report, please contact the number below. For patients who have questions please contact the health animal care taker that requested your imaging first. Electronically signed by: AUDI PERDOMO MD, [facility] ([phone]), at 09/05/2022 3:43 PM XR Abdomen 1 [...] who have questions please contact the health animal care taker that requested your imaging first. Electronically signed by: Camille Garcia MD, [facility] ([phone]), at 09/10/2022 1:16 AM Medications: Scheduled: ??? [...] RD??c/b??esophagitis &??Farrell's esophagus, who was admitted to [facility] on 08/14/2022 (now on Hospital Day #23) [...] them that she shouldcontinue to work with PT/OT/PLAY BACK OPERATOR/nursing but that the most recent assessments still [...] discharge - C/w valproate 300mg q6h - PLAY BACK OPERATOR following, NPO at present - Psychiatry Consult, [...] Medicine PGY1 Medicine Team: Jose Juan, Pager #[phone] Date: 09/10/2022 Associated attestation - Molina Flores [...] of two midnights or is on the [facility] inpatient only procedure list (status C) [...] bipolar, DM, EtOH, esophagitis, who presented to [facility] 3 days ago after being found unresponsive at home.?Patient found to have likely pneumonia +/- aspiration, newly reduced EF. Reason for Assessment: Tube Feeding, Follow-up Nutrition Recommendations: S/p PEG placement, resume current TF: Cyclic Peptamen AF at 90ml/hr for 14 hrs from [id number] (pended). At goal, this will provide: Peptamen AF Total Volume Per Day: 1260 mL Scoops of Protein: 0 Calories per Day: 1512 Protein per Day: 96 g Free Water mL per Day: 1023 % RDI: 101 % Monitor hydration status on above TFs as they are concentrated. Pt may need additional fluids depending on IVFs, med flushes, p.o. Intake, etc. Po diet per PLAY BACK OPERATOR (recs 09/04 NPO s/p MBS) Continue 50,000 [...] Peptamen AF at 110ml/hr for 12hrs from [id number] (see updated order above as of 09/07). [...] encounter: 64.5 kg (142 lb 1.6 oz). Stevens Body Weight (IBW) (kg): 45.45 Usual Body [...] 08/25 r/t liquid tylenol, d/c per this music writer's request as liquid tylenol acts as [...] while inpatient THANKS Wilda Blankenship RD Pager #:[phone] * Eliseo Cookmy Yesi, OT - 09/09/2022 [...] deficiency anemia,??GERD??c/b??esophagitis &??Farrell's esophagus??presenting in transfer from [facility], suspected to be in cardiogenic shock and [...] Total Minutes, Occupational Therapy: 37 (2 TA, [id number]) Pager: [phone] Alicia Cook, OT 09/09/2022 Occupational Therapy Rehabilitation [...] RD??c/b??esophagitis &??Farrell's esophagus, who was admitted to [facility] on 08/14/2022 (now on Hospital Day #21), [...] Molina Flores MD PCP: Chris Stanley APRN ([phone]) ID: Ishan Irving is a 62 y.o. 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.5 years) c/b chronic pancreatitis, iron deficiency anemia, ??GERD??c/b??esophagitis &??Farrell's esophagus, who was admitted to [facility] on 08/14/2022 (now on Hospital Day #26) [...] fellows interpretation Confirmed by fellow Niurka Rose ([id number]) on 09/07/2022 8:45:34 AM Confirmed by MD [...] Date/Time Lower Respiratory Culture Bronchial Alveolar Lavage [[id number]] Collected: 08/21/221649 Lab Status: Final result Specimen: Bronchial Alveolar Lavage Updated: 08/23/22 0741 Lower Respiratory Culture Rare mixed bacterial morphotypes suggestive of normal upper respiratory wiley Gram Stain -- Few Neutrophils seen No squamous epithelial cells seen No microorganisms seen. Fungus Culture & Calc Stain Bronchial Alveolar Lavage [[id number]] (Abnormal) Collected: 08/21/221649 Lab Status: Preliminary result Specimen: Bronchial Alveolar Lavage Updated: 08/24/22 1452 AFB culture Bronchial Alveolar Lavage [[id number]] Collected: 08/21/221649 Lab Status: Preliminary result Specimen: Bronchial Alveolar Lavage Updated: 08/24/22 2219 Acid Fast Bacilli Culture -- No Acid Fast Bacilli isolated to date If active tuberculosis is suspected, the patient should be on [employer] PRECAUTIONS. Call Infection Prevention for assistance if needed. Acid Fast Stain No Acid Fast Bacilli seen Fungus culture [[id number]] (Abnormal) Collected: 08/21/221649 Lab Status: Preliminary result Specimen: Bronchial Alveolar Lavage Updated: 08/24/22 145 Fungus Culture Rare Jacky albicans Calcofluor White Stain [[id number]] Collected: 08/21/221649 Lab Status: Final result Specimen: Bronchial Alveolar Lavage Updated: 08/21/222015 Calcofluor Stain Calcofluor White Preparation: Negative Lower Respiratory Culture Bronchial Alveolar Lavage [[id number]] Collected: 08/21/221644 Lab Status: Final result Specimen: Bronchial Alveolar Lavage Updated: 08/23/22 0741 Lower Respiratory Culture Rare mixed bacterial morphotypes suggestive of normal upper respiratory wiley Gram Stain -- Moderate Neutrophils seen No squamous epithelial cells seen No microorganisms seen. Fungus Culture & Calc Stain Bronchial Alveolar Lavage [[id number]] (Abnormal) Collected: 08/21/221644 Lab Status: Preliminary result Specimen: Bronchial Alveolar Lavage Updated: 08/24/22 1453 AFB culture Bronchial Alveolar Lavage [[id number]] Collected: 08/21/221644 Lab Status: Preliminary result Specimen: Bronchial Alveolar Lavage Updated: 08/24/22 222 Acid Fast Bacilli Culture -- No Acid Fast Bacilli isolated to date If active tuberculosis is suspected, the patient should be on AIR[employer] PRECAUTIONS. Call Infection Prevention for assistance if needed. Acid Fast Stain No Acid Fast Bacilli seen Fungus culture [[id number]] (Abnormal) Collected: 08/21/22 1645 Lab Status: Preliminary result Specimen: Bronchial Alveolar Lavage Updated: 08/24/22 1453 Fungus Culture Rare Jacky albicans Calcofluor White Stain [[id number]] Collected: 08/21/22 164 Lab Status: Final result Specimen: Bronchial Alveolar Lavage Updated: 08/21/22 2017 Calcofluor Stain Calcofluor White Preparation: Negative Blood culture [[id number]] Collected: 08/19/22 1720 Lab Status: Final result Specimen: Blood Updated: 08/24/22 2301 Blood Culture No growth at 5 days. Lower Respiratory Culture Sputum Induced [[id number]] Collected: 08/19/22 1451 Lab Status: Final result Specimen: Sputum Induced Updated: 08/21/22 0948 Lower Respiratory Culture Rare mixed bacterial morphotypes suggestive of normal upper respiratory wiley Gram Stain -- Many Neutrophils seen Few squamous epithelial cells seen No microorganisms seen. Blood culture [[id number]] Collected: 08/19/22 1330 Lab Status: Final result Specimen: Blood Updated: 08/24/22 1501 Blood Culture No growth at 5 days. Legionella Urinary Antigen [[id number]] Collected: 08/18/22 1013 Lab Status: Final result [...] Catheter Urine; Other; sepsis, bacteria on UA [[id number]] Collected: 08/15/22 1225 Lab Status: Final result Specimen: Indwelling Catheter Urine Updated: 08/16/22 0804 Urine Culture 1,000-9,000 cfu/ml Insignificant growth COVID-19 PCR [[id number]] Collected: 08/15/22 1150 Lab Status: Final result [...] using the Simplexa COVID-19 Direct Assay by [employer] as authorized by the FDA issued Emergency [...] Department of Pathology and Laboratory Medicine at [facility], certified under the Clinical Laboratory Improvement Amendments [...] fact sheets at the following FDA website: https://www.fda.gov/medical-devices/zdhjfxlkvlr-yfkwuns-9633-qwbbz-63-jifjfzyrx- rmh-naafkauiemeyyd-jjcmfxu-devices/nwaps-rnrlthylhgp-lcbf SARS-CoV-2 Source ECONOMICS FACULTY MEMBER Swab Lower Respiratory Culture Sputum Induced [[id number]] Collected: 08/15/22 0740 Lab Status: Final result Specimen: Sputum Induced Updated: 08/17/22 1015 Lower Respiratory Culture Rare normal upper respiratory wiley Gram Stain -- Many Neutrophils Few squamous epithelial cells Rare mixed bacterial morphotypes suggestive of normal upper respiratory wiley Blood culture [[id number]] Collected: 08/15/22 0110 Lab Status: Final result Specimen: Blood Updated: 08/20/22 0701 Blood Culture No growth at 5 days. MRSA PCR Screen ([facility] [place] [facility]/CGP/APD/NLH) [[id number]] Collected: 08/15/22 0050 Lab Status: Final result Specimen: Nasopharyngeal Swab Updated: 08/17/22 1419 MRSA Result Negative MRSA Interp -- Methicillin-resistant Staphylococcus aureus (MRSA) is NOT DETECTED The MRSA target DNA sequences (mec and SCC) were not detected within the acceptable ranges using the Xpert MRSA NxG on the GeneXpert Dx System ([employer]). This suggests the absence of MRSA in the patient specimen submitted for testing. This test is cleared by the U.S. Food and Drug Administration for clinical use and its performance characteristics have been verified by the [facility] at [facility]. This result does not rule out the presence of any other organisms. Rare false negative results may occur if MRSA is present at low concentrations with much higher concentrations of other organisms including MRSE or S. aureus with an empty SCC cassette. Comment: [VERIFIED DATE]08.17.22 Verified By:Shannon Smiley (Electronic Signature) Blood culture [[id number]] Collected: 08/14/22 2486 Lab Status: Final result Specimen: Blood Updated: [...] who have questions please contact the health animal care taker that requested your imaging first. Electronically signed by: Davi Terry MD, [facility] ([phone]), at 08/15/2022 3:53 AM XR Abdomen 1 view (Generic) (Exam [...] who have questions please contact the health animal care taker that requested your imaging first. Electronically signed by: Liliane Adams MD, [facility] ([phone]), at 08/15/2022 9:05 AM XR Chest One [...] who have questions please contact the health animal care taker that requested your imaging first. Electronically signed by: Davi Terry MD, [facility] ([phone]), at 08/15/2022 3:55 AM XR Abdomen 1 [...] who have questions please contact the health animal care taker that requested your imaging first. Electronically signed by: Davi Terry MD, [facility] ([phone]), at 08/15/2022 6:41 AM XR Chest One [...] who have questions please contact the health animal care taker that requested your imaging first. Electronically signed by: Alfonso Adams MD, [facility] ([phone]), at 08/16/2022 10:[address] Head wo [...] who have questions please contact the health animal care taker that requested your imaging first. Electronically signed by: Moustapha Correa MD, [facility] ([phone]), at 08/16/2022 11:19 PM XR Abdomen 1 [...] who have questions please contact the health animal care taker that requested your imaging first. Head wo Contrast (Generic) (Exam End: 08/18/2022 3:14 PM) Impression No acute intracranial process. Thank you for letting us participate in the care of this patient. If you are a health care provider and have any questions regarding this report, please contact the number below. For patients who have questions please contact the health animal care taker that requested your imaging first. Electronically signed by: Antonio Jordan MD, [facility] ([phone]), at 08/18/2022 3:18 PM XR Chest One [...] who have questions please contact the health animal care taker that requested your imaging first. Electronically signed by: Alan De Guzman MD, [facility] ([phone]), at 08/19/2022 3:14 PM MRI Brain wo Contrast (Exam End: 08/19/2022 10:15 PM) Impression No acute infarction, mass or mass effect. Thank you for letting us participate in the care of this patient. If you are a health care provider and have any questions regarding this report, please contact the number below. For patients who have questions please contact the health animal care taker that requested your imaging first. Electronically signed by: Jagdeep Lee MD, [facility] ([phone]), at 08/20/2022 3:34 AM XR Chest for [...] who have questions please contact the health animal care taker that requested your imaging first. Electronically signed by: Alan De Guzman MD, [facility] ([phone]), at 08/19/2022 4:[address] Hip w [...] who have questions please contact the health animal care taker that requested your imaging first. Electronically signed by: Aicha Chowdhury MD, [facility] ([phone]), at 08/21/2022 9:[address] Chest w [...] who have questions please contact the health animal care taker that requested your imaging first. Electronically signed by: Jagdeep Lee MD, [facility] ([phone]), at 08/21/2022 6:56 AM XR Hip 2-3 Views Left (Exam End: 08/22/2022 12:19 AM) Impression No radiographic evidence of infection. Thank you for letting us participate in the care of this patient. If you are a health care provider and have any questions regarding this report, please contact the number below. For patients who have questions please contact the health animal care taker that requested your imaging first. Electronically signed by: Viktor Cervantes MD, [facility] ([phone]), at 08/22/2022 12:43 PM XR Pelvis (Generic) (Exam End: 08/22/2022 12:19 AM) Impression No radiographic evidence of infection status post left hip ORIF. Thank you for letting us participate in the care of this patient. If you are a health care provider and have any questions regarding this report, please contact the number below. For patients who have questions please contact the health animal care taker that requested your imaging first. Electronically signed by: Richard Billings MD, [facility] ([phone]), at 08/22/2022 10:[address] Angiogram Coronary [...] who have questions please contact the health animal care taker that requested your imaging first. Electronically signed by: Arlette Mays MD, [facility] ([phone]), at 08/27/2022 11:[address] Chest wo Contrast (Generic) (Exam End: 08/27/2022 8:58 AM) Impression Stable findings of multifocal pneumonia. No interval abnormality. Thank you for letting us participate in the care of this patient. If you are a health care provider and have any questions regarding this report, please contact the number below. For patients who have questions please contact the health animal care taker that requested your imaging first. Electronically signed by: MINH QUIROGA MD, [facility] ([phone]), at 08/27/2022 10:48 AM XR Fluoro Barium [...] who have questions please contact the health animal care taker that requested your imaging first. Electronically signed by: Aron Billings MD, [facility] ([phone]), at 08/31/2022 12:02 PM XR Fluoro Barium [...] who have questions please contact the health animal care taker that requested your imaging first. Electronically signed by: Alfonso Adams MD, [facility] ([phone]), at 09/04/2022 10:57 AM XR Abdomen 1 [...] who have questions please contact the health animal care taker that requested your imaging first. Electronically signed by: Jagdeep Lee MD, [facility] ([phone]), at 09/04/2022 10:35 PM XR Chest One [...] who have questions please contact the health animal care taker that requested your imaging first. Electronically signed by: Jagdeep Lee MD, [facility] ([phone]), at 09/04/2022 10:35 PM XR Chest One View (Exam End: 09/05/2022 9:24 AM) Impression 1. Reposition enteric tube now extending below the diaphragm and included [id number]. 2. Similar appearance of elevated right hemidiaphragm and linear/patchy bibasilar opacities which may represent atelectasis or possibly aspiration. Thank you for letting us participate in the care of this patient. If you are a health care provider and have any questions regarding this report, please contact the number below. For patients who have questions please contact the health animal care taker that requested your imaging first. Electronically signed by: AUDI PERDOMO MD, [facility] ([phone]), at 09/05/2022 3:43 PM Medications: Scheduled: ??? [...] RD??c/b??esophagitis &??Farrell's esophagus, who was admitted to [facility] on 08/14/2022 (now on Hospital Day #23) [...] that she should continue to work with PT/OT/PLAY BACK OPERATOR/nursing but that the most recent assessments still recommended acute rehab. Today's plan: - Continue tube feeds - Diabetes Team aware and titrating insulin accordingly - Surgery consulted for PEG placement today # Bipolar Disorder - Continue Seroquel 100mg nightly for now, patient and want it uptitrated before discharge - C/w valproate 300mg q6h - PLAY BACK OPERATOR following, NPO at present - Psychiatry Consult, [...] Medicine PGY1 Medicine Team: Jose Juan, Pager #[phone] Date: 09/09/2022 Associated attestation - Molina Flores [...] of two midnights or is on the [facility] inpatient only procedure list (status C) [...] deficiency anemia,??GERD??c/b??esophagitis &??Farrell's esophagus??presenting in transfer from [facility], suspected to be in cardiogenic shock and [...] times/wk Total Minutes, Occupational Therapy: 45 (x3 [facility] [phone]) Pager: [phone] DANIELA Montes 09/08/2022 Occupational Therapy Rehabilitation Department [...] deficiency anemia,??GERD??c/b??esophagitis &??Farrell's esophagus??presenting in transfer from [facility], suspected to be in cardiogenic shock and [...] NPO for OR Monitoring:??Q4 Elsie Erickson APRN [facility] Endocrinology Diabetes Management Pager [phone] 20 minutes of this 35 minute visit [...] deficiency anemia,??GERD??c/b??esophagitis &??Farrell's esophagus??presenting in transfer from [facility], suspected to be in cardiogenic shock and found to be in mixed shock with concern for stress cardiomyopathy.??She is s/p ORIF left femoral neck fracture ~ 4 at OSH. ?? Interval History: Dobhoff placed, Moved from ISCU to floor status, plan for PEG today. PLAY BACK OPERATOR team will continue to follow for swallowing and cognition. Briana Bryant MA [facility]-PLAY BACK OPERATOR Inpatient Rehabilitation Medicine pager:# [phone] * Chau Keith MD - 09/08/2022 6:11 AM EDT Images from the original note were not included. Inpatient Hospital Medicine Progress Note 09/08/2022 Patient Name: ISHAN IRVING Date of : 1960 Age: 62 y.o. Hospital Admit Date: 08/14/2022 Hospital Day: 25 Inpatient Attending: Richard Pascal MD PCP: Chris Stanley APRN ([phone]) ID: Ishan Irving is a 62 y.o. 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.5 years) c/b chronic pancreatitis, iron deficiency anemia, ??GERD??c/b??esophagitis &??Farrell's esophagus, who was admitted to [facility] on 08/14/2022 (now on Hospital Day #25) [...] fellows interpretation Confirmed by fellow Niurka Rose ([id number]) on 09/07/2022 8:45:34 AM Confirmed by MD [...] Date/Time Lower Respiratory Culture Bronchial Alveolar Lavage [[id number]] Collected: 08/21/221649 Lab Status: Final result Specimen: Bronchial Alveolar Lavage Updated: 08/23/22 0741 Lower Respiratory Culture Rare mixed bacterial morphotypes suggestive of normal upper respiratory wiley Gram Stain -- Few Neutrophils seen No squamous epithelial cells seen No microorganisms seen. Fungus Culture & Calc Stain Bronchial Alveolar Lavage [[id number]] (Abnormal) Collected: 08/21/221649 Lab Status: Preliminary result Specimen: Bronchial Alveolar Lavage Updated: 08/24/22 1452 AFB culture Bronchial Alveolar Lavage [[id number]] Collected: 08/21/221649 Lab Status: Preliminary result Specimen: Bronchial Alveolar Lavage Updated: 08/24/22 2219 Acid Fast Bacilli Culture -- No Acid Fast Bacilli isolated to date If active tuberculosis is suspected, the patient should be on [employer] PRECAUTIONS. Call Infection Prevention for assistance if needed. Acid Fast Stain No Acid Fast Bacilli seen Fungus culture [[id number]] (Abnormal) Collected: 08/21/221649 Lab Status: Preliminary result Specimen: Bronchial Alveolar Lavage Updated: 08/24/22 145 Fungus Culture Rare Jacky albicans Calcofluor White Stain [[id number]] Collected: 08/21/221649 Lab Status: Final result Specimen: Bronchial Alveolar Lavage Updated: 08/21/22 2016 Calcofluor Stain Calcofluor White Preparation: Negative Lower Respiratory Culture Bronchial Alveolar Lavage [[id number]] Collected: 08/21/22 164 Lab Status: Final result Specimen: Bronchial Alveolar Lavage Updated: 08/23/22 0741 Lower Respiratory Culture Rare mixed bacterial morphotypes suggestive of normal upper respiratory wiley Gram Stain -- Moderate Neutrophils seen No squamous epithelial cells seen No microorganisms seen. Fungus Culture & Calc Stain Bronchial Alveolar Lavage [[id number]] (Abnormal) Collected: 08/21/221644 Lab Status: Preliminary result Specimen: Bronchial Alveolar Lavage Updated: 08/24/22 1453 AFB culture Bronchial Alveolar Lavage [[id number]] Collected: 08/21/221644 Lab Status: Preliminary result Specimen: Bronchial Alveolar Lavage Updated: 08/24/22 222 Acid Fast Bacilli Culture -- No Acid Fast Bacilli isolated to date If active tuberculosis is suspected, the patient should be on [employer] PRECAUTIONS. Call Infection Prevention for assistance if needed. Acid Fast Stain No Acid Fast Bacilli seen Fungus culture [[id number]] (Abnormal) Collected: 08/21/221644 Lab Status: Preliminary result Specimen: Bronchial Alveolar Lavage Updated: 08/24/22 1453 Fungus Culture Rare Jacky albicans Calcofluor White Stain [[id number]] Collected: 08/21/221644 Lab Status: Final result Specimen: Bronchial Alveolar Lavage Updated: 08/21/22 2017 Calcofluor Stain Calcofluor White Preparation: Negative Blood culture [[id number]] Collected: 08/19/22 1720 Lab Status: Final result Specimen: Blood Updated: 08/24/22 2301 Blood Culture No growth at 5 days. Lower Respiratory Culture Sputum Induced [[id number]] Collected: 08/19/22 1451 Lab Status: Final result Specimen: Sputum Induced Updated: 08/21/22 0948 Lower Respiratory Culture Rare mixed bacterial morphotypes suggestive of normal upper respiratory wiley Gram Stain -- Many Neutrophils seen Few squamous epithelial cells seen No microorganisms seen. Blood culture [[id number]] Collected: 08/19/22 1330 Lab Status: Final result Specimen: Blood Updated: 08/24/22 1501 Blood Culture No growth at 5 days. Legionella Urinary Antigen [[id number]] Collected: 08/18/22 1013 Lab Status: Final result [...] Catheter Urine; Other; sepsis, bacteria on UA [[id number]] Collected: 08/15/22 1225 Lab Status: Final result Specimen: Indwelling Catheter Urine Updated: 08/16/22 0804 Urine Culture 1,000-9,000 cfu/ml Insignificant growth COVID-19 PCR [[id number]] Collected: 08/15/22 1150 Lab Status: Final result [...] using the Simplexa COVID-19 Direct Assay by W[employer] as authorized by the FDA issued Emergency [...] Department of Pathology and Laboratory Medicine at [facility], certified under the Clinical Laboratory Improvement Amendments [...] fact sheets at the following FDA website: https://www.fda.gov/medical-devices/lxewgtayyse-gpcjbwd-7798-dqhdk-46-jyfeedcat- zvk-mtcgnokeprddfm-wmrwvjx-devices/kbgmz-iprcwspotqp-fnqr SARS-CoV-2 Source ECONOMICS FACULTY MEMBER Swab Lower Respiratory Culture Sputum Induced [[id number]] Collected: 08/15/22 0740 Lab Status: Final result Specimen: Sputum Induced Updated: 08/17/22 1015 Lower Respiratory Culture Rare normal upper respiratory wiley Gram Stain -- Many Neutrophils Few squamous epithelial cells Rare mixed bacterial morphotypes suggestive of normal upper respiratory wiley Blood culture [[id number]] Collected: 08/15/22 0110 Lab Status: Final result Specimen: Blood Updated: 08/20/22 0701 Blood Culture No growth at 5 days. MRSA PCR Screen ([facility]/CGP/APD/NL) [[id number]] Collected: 08/15/22 0050 Lab Status: Final result Specimen: Nasopharyngeal Swab Updated: 08/17/22 1419 MRSA Result Negative MRSA Interp -- Methicillin-resistant Staphylococcus aureus (MRSA) is NOT DETECTED The MRSA target DNA sequences (mec and SCC) were not detected within the acceptable ranges using the Xpert MRSA NxG on the GeneXpert Dx System ([employer]). This suggests the absence of MRSA in the patient specimen submitted for testing. This test is cleared by the U.S. Food and Drug Administration for clinical use and its performance characteristics have been verified by the [facility] at [facility]. This result does not rule out the presence of any other organisms. Rare false negative results may occur if MRSA is present at low concentrations with much higher concentrations of other organisms including MRSE or S. aureus with an empty SCC cassette. Comment: [VERIFIED DATE]08.17.22 Verified By:Shannon Smiley (Electronic Signature) Blood culture [[id number]] Collected: 08/14/22 235 Lab Status: Final result Specimen: Blood Updated: [...] who have questions please contact the health animal care taker that requested your imaging first. Electronically signed by: Davi Terry MD, [facility] ([phone]), at 08/15/2022 3:53 AM XR Abdomen 1 view (Generic) (Exam [...] who have questions please contact the health animal care taker that requested your imaging first. Electronically signed by: Liliane Adams MD, [facility] ([phone]), at 08/15/2022 9:05 AM XR Chest One [...] who have questions please contact the health animal care taker that requested your imaging first. Electronically signed by: Davi Terry MD, [facility] ([phone]), at 08/15/2022 3:55 AM XR Abdomen 1 [...] who have questions please contact the health animal care taker that requested your imaging first. Electronically signed by: Davi Terry MD, [facility] ([phone]), at 08/15/2022 6:41 AM XR Chest One [...] who have questions please contact the health animal care taker that requested your imaging first. Electronically signed by: Alfonso Adams MD, [facility] ([phone]), at 08/16/2022 10:[address] Head wo [...] who have questions please contact the health animal care taker that requested your imaging first. Electronically signed by: Moustapha Correa MD, [facility] ([phone]), at 08/16/2022 11:19 PM XR Abdomen 1 [...] who have questions please contact the health animal care taker that requested your imaging first. Head wo Contrast (Generic) (Exam End: 08/18/2022 3:14 PM) Impression No acute intracranial process. Thank you for letting us participate in the care of this patient. If you are a health care provider and have any questions regarding this report, please contact the number below. For patients who have questions please contact the health animal care taker that requested your imaging first. Electronically signed by: Antonio Jordan MD, [facility] ([phone]), at 08/18/2022 3:18 PM XR Chest One [...] who have questions please contact the health animal care taker that requested your imaging first. Electronically signed by: Alan De Guzman MD, [facility] ([phone]), at 08/19/2022 3:14 PM MRI Brain wo Contrast (Exam End: 08/19/2022 10:15 PM) Impression No acute infarction, mass or mass effect. Thank you for letting us participate in the care of this patient. If you are a health care provider and have any questions regarding this report, please contact the number below. For patients who have questions please contact the health animal care taker that requested your imaging first. Electronically signed by: Jagdeep Lee MD, [facility] ([phone]), at 08/20/2022 3:34 AM XR Chest for [...] who have questions please contact the health animal care taker that requested your imaging first. Electronically signed by: Alan De Guzman MD, [facility] ([phone]), at 08/19/2022 4:[address] Hip w [...] who have questions please contact the health animal care taker that requested your imaging first. Electronically signed by: Aicha Chowdhury MD, [facility] ([phone]), at 08/21/2022 9:[address] Chest w [...] who have questions please contact the health animal care taker that requested your imaging first. Electronically signed by: Jagdeep Lee MD, [facility] ([phone]), at 08/21/2022 6:56 AM XR Hip 2-3 Views Left (Exam End: 08/22/2022 12:19 AM) Impression No radiographic evidence of infection. Thank you for letting us participate in the care of this patient. If you are a health care provider and have any questions regarding this report, please contact the number below. For patients who have questions please contact the health animal care taker that requested your imaging first. Electronically signed by: Viktor Cervantes MD, [facility] ([phone]), at 08/22/2022 12:43 PM XR Pelvis (Generic) (Exam End: 08/22/2022 12:19 AM) Impression No radiographic evidence of infection status post left hip ORIF. Thank you for letting us participate in the care of this patient. If you are a health care provider and have any questions regarding this report, please contact the number below. For patients who have questions please contact the health animal care taker that requested your imaging first. Electronically signed by: Richard Billings MD, [facility] ([phone]), at 08/22/2022 10:[address] Angiogram Coronary [...] who have questions please contact the health animal care taker that requested your imaging first. Electronically signed by: Arlette Mays MD, [facility] ([phone]), at 08/27/2022 11:[address] Chest wo Contrast (Generic) (Exam End: 08/27/2022 8:58 AM) Impression Stable findings of multifocal pneumonia. No interval abnormality. Thank you for letting us participate in the care of this patient. If you are a health care provider and have any questions regarding this report, please contact the number below. For patients who have questions please contact the health animal care taker that requested your imaging first. Electronically signed by: MINH QUIROGA MD, [facility] ([phone]), at 08/27/2022 10:48 AM XR Fluoro Barium [...] who have questions please contact the health animal care taker that requested your imaging first. Electronically signed by: Aron Billings MD, [facility] ([phone]), at 08/31/2022 12:02 PM XR Fluoro Barium [...] who have questions please contact the health animal care taker that requested your imaging first. Electronically signed by: Alfonso Adams MD, [facility] ([phone]), at 09/04/2022 10:57 AM XR Abdomen 1 [...] who have questions please contact the health animal care taker that requested your imaging first. Electronically signed by: Jagdeep Lee MD, [facility] ([phone]), at 09/04/2022 10:35 PM XR Chest One [...] who have questions please contact the health animal care taker that requested your imaging first. Electronically signed by: Jagdeep Lee MD, [facility] ([phone]), at 09/04/2022 10:35 PM XR Chest One View (Exam End: 09/05/2022 9:24 AM) Impression 1. Reposition enteric tube now extending below the diaphragm and included [id number]. 2. Similar appearance of elevated right hemidiaphragm and linear/patchy bibasilar opacities which may represent atelectasis or possibly aspiration. Thank you for letting us participate in the care of this patient. If you are a health care provider and have any questions regarding this report, please contact the number below. For patients who have questions please contact the health animal care taker that requested your imaging first. Electronically signed by: AUDI PERDOMO MD, [facility] ([phone]), at 09/05/2022 3:43 PM Medications: Scheduled: ??? [...] RD??c/b??esophagitis &??Farrell's esophagus, who was admitted to [facility] on 08/14/2022 (now on Hospital Day #23) [...] that she should continue to work with PT/OT/PLAY BACK OPERATOR/nursing but that the most recent assessments still recommended acute rehab. Today's plan: - Continue tube feeds - Diabetes Team aware and titrating insulin accordingly - Surgery consulted for PEG placement today # Bipolar Disorder - Continue Seroquel 100mg nightly for now, patient and want it uptitrated before discharge - C/w valproate 300mg q6h - PLAY BACK OPERATOR following, NPO at present - Psychiatry Consult, [...] Medicine PGY1 Medicine Team: Jose Juan, Pager #[phone] Date: 09/08/2022 Associated attestation - Molina Flores [...] of two midnights or is on the [facility] inpatient only procedure list (status C) [...] 4:51 PM EDT Speech-Language Pathology Contact Note: PLAY BACK OPERATOR following for swallow, cognitive intervention. Discussed with nursing this AM, pending potential PEG today and NPO with TF held. TF restarted this PM but I was unable to return due to scheduling limitations. PLAY BACK OPERATOR team will follow up at later date for ongoing therapy, please secure chat/page withquestions/concerns. Thank you. Petty Mccullough M.S., [facility]-PLAY BACK OPERATOR Inpatient Speech-Pathology Pager: [phone] * Feroz Portillo, PILE DRIVER - 09/07/2022 2:50 PM EDT Physical Therapy [...] deficiency anemia,??GERD??c/b??esophagitis &??Farrell's esophagus??presenting in transfer from [facility], suspected to be in cardiogenic shock and found to be in mixed shock with concern for stress cardiomyopathy. She is s/p ORIF left femoral neck fracture ~ 08/08 at OSH. Interval History: Moved to [facility], [facility] placed Social History: single level home w [...] TE-F x 3 FEROZ PORTILLO PTA Pager: [phone] Physical Therapy Inpatient Rehabilitation Department * Shanice Carrera, RD - 09/07/2022 2:38 PM EDT Nutrition Progress Note Ishan Irving is a 62 y.o.??female??with h/o bipolar, DM, EtOH, esophagitis, who presented to [facility] 3 days ago after being found unresponsive at home.?Patient found to have likely pneumonia +/- aspiration, newly reduced EF. Reason for Assessment: Tube Feeding, Follow-up Nutrition Recommendations: Enteral Nutrition: New: Cyclic Peptamen AF at 90ml/hr for 14 hrs from [id number] (pended). At goal, this will provide: Peptamen AF Total Volume Per Day: 1260 mL Scoops of Protein: 0 Calories per Day: 1512 Protein per Day: 96 g Free Water mL per Day: 1023 % RDI: 101 % Monitor hydration status on above TFs as they are concentrated. Pt may need additional fluids depending on IVFs, med flushes, p.o. Intake, etc. Diet per PLAY BACK OPERATOR Continue 50,000 units vitamin D weekly; 1000 mcg folic acid and 100 mg thiamine daily. Monitor lytes. Replete as indicated Monitor BM. Goal of one every 24-48hrs while on EN Monitor weight to trend I was able to discuss plan with provider Murphy Manzano [id number] Current Nutrition Regimen: Active Orders Diet NPO diet (Give Meds) Frequency: Effective Now Number of Occurrences: Until Specified All Active TF Orders: Tubefeeding Orders (From admission, onward) Start Dose/Rate Route Frequency Ordered Stop 08/31/22 1745 tube feeding diet 1,320 mL 110 mL/hr Per NG tube Cyclic-(Tube feed) 08/31/221650 Cyclic Peptamen AF at 110ml/hr for 12hrs from 1901-5452 (see updated order above as of 09/07). [...] encounter: 64.1 kg (141 lb 5 oz). Stevens Body Weight (IBW) (kg): 45.45 Usual Body [...] Assessed Needs: Fluid Requirements (mL/day): 2562 mL [place] Kcal / K - 1737.5 Kcal (20 [...] 08/25 r/t liquid tylenol, d/c per this music writer's request as liquid tylenol acts as [...] up while inpatient Shanice Carrera RD Pager #:[phone] * Elsie Erickson, SUPERINTENDENT COLLIERY - 09/07/2022 1:39 PM EDT Follow Up [...] deficiency anemia,??GERD??c/b??esophagitis &??Farrell's esophagus??presenting in transfer from [facility], suspected to be in cardiogenic shock and [...] of 110 mls/hr Monitoring:??Q4 Elsie Erickson APRN [facility] Endocrinology Diabetes Management Pager [phone] 20 minutes of this 35 minute visit [...] RD??c/b??esophagitis &??Farrell's esophagus, who was admitted to [facility] on 08/14/2022 (now on Hospital Day #21), [...] Molina Flores MD PCP: Chris Stanley APRN ([phone]) ID: Ishan Irving is a 62 y.o. 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.5 years) c/b chronic pancreatitis, iron deficiency anemia, ??GERD??c/b??esophagitis &??Farrell's esophagus, who was admitted to [facility] on 08/14/2022 (now on Hospital Day #24) [...] Date/Time Lower Respiratory Culture Bronchial Alveolar Lavage [[id number]] Collected: 08/21/22 1650 Lab Status: Final result Specimen: Bronchial Alveolar Lavage Updated: 08/23/22 0741 Lower Respiratory Culture Rare mixed bacterial morphotypes suggestive of normal upper respiratory wiley Gram Stain -- Few Neutrophils seen No squamous epithelial cells seen No microorganisms seen. Fungus Culture & Calc Stain Bronchial Alveolar Lavage [[id number]] (Abnormal) Collected: 08/21/221649 Lab Status: Preliminary result Specimen: Bronchial Alveolar Lavage Updated: 08/24/22 1452 AFB culture Bronchial Alveolar Lavage [[id number]] Collected: 08/21/221649 Lab Status: Preliminary result Specimen: Bronchial Alveolar Lavage Updated: 08/24/22 2219 Acid Fast Bacilli Culture -- No Acid Fast Bacilli isolated to date If active tuberculosis is suspected, the patient should be on AIRBORNE PRECAUTIONS. Call Infection Prevention for assistance if needed. Acid Fast Stain No Acid Fast Bacilli seen Fungus culture [[id number]] (Abnormal) Collected: 08/21/221649 Lab Status: Preliminary result Specimen: Bronchial Alveolar Lavage Updated: 08/24/22 145 Fungus Culture Rare Jacky albicans Calcofluor White Stain [[id number]] Collected: 08/21/221649 Lab Status: Final result Specimen: Bronchial Alveolar Lavage Updated: 08/21/222015 Calcofluor Stain Calcofluor White Preparation: Negative Lower Respiratory Culture Bronchial Alveolar Lavage [[id number]] Collected: 08/21/221644 Lab Status: Final result Specimen: Bronchial Alveolar Lavage Updated: 08/23/22 0741 Lower Respiratory Culture Rare mixed bacterial morphotypes suggestive of normal upper respiratory wiley Gram Stain -- Moderate Neutrophils seen No squamous epithelial cells seen No microorganisms seen. Fungus Culture & Calc Stain Bronchial Alveolar Lavage [[id number]] (Abnormal) Collected: 08/21/221644 Lab Status: Preliminary result Specimen: Bronchial Alveolar Lavage Updated: 08/24/22 1453 AFB culture Bronchial Alveolar Lavage [[id number]] Collected: 08/21/221644 Lab Status: Preliminary result Specimen: Bronchial Alveolar Lavage Updated: 08/24/22 2221 Acid Fast Bacilli Culture -- No Acid Fast Bacilli isolated to date If active tuberculosis is suspected, the patient should be on AIRBORNE PRECAUTIONS. Call Infection Prevention for assistance if needed. Acid Fast Stain No Acid Fast Bacilli seen Fungus culture [[id number]] (Abnormal) Collected: 08/21/221644 Lab Status: Preliminary result Specimen: Bronchial Alveolar Lavage Updated: 08/24/22 145 Fungus Culture Rare Jacky albicans Calcofluor White Stain [[id number]] Collected: 08/21/22 1645 Lab Status: Final result Specimen: Bronchial Alveolar Lavage Updated: 08/21/22 2017 Calcofluor Stain Calcofluor White Preparation: Negative Blood culture [[id number]] Collected: 08/19/22 1720 Lab Status: Final result Specimen: Blood Updated: 08/24/22 2301 Blood Culture No growth at 5 days. Lower Respiratory Culture Sputum Induced [[id number]] Collected: 08/19/22 1451 Lab Status: Final result Specimen: Sputum Induced Updated: 08/21/22 0948 Lower Respiratory Culture Rare mixed bacterial morphotypes suggestive of normal upper respiratory wiley Gram Stain -- Many Neutrophils seen Few squamous epithelial cells seen No microorganisms seen. Blood culture [[id number]] Collected: 08/19/22 1330 Lab Status: Final result Specimen: Blood Updated: 08/24/22 1501 Blood Culture No growth at 5 days. Legionella Urinary Antigen [[id number]] Collected: 08/18/22 1013 Lab Status: Final result [...] Catheter Urine; Other; sepsis, bacteria on UA [[id number]] Collected: 08/15/22 1225 Lab Status: Final result Specimen: Indwelling Catheter Urine Updated: 08/16/22 0804 Urine Culture 1,000-9,000 cfu/ml Insignificant growth COVID-19 PCR [[id number]] Collected: 08/15/22 1150 Lab Status: Final result [...] Department of Pathology and Laboratory Medicine at [facility], certified under the Clinical Laboratory Improvement Amendments [...] fact sheets at the following FDA website: https://www.fda.gov/medical-devices/oaosciehaae-qvswmhk-4661-juzey-69-jizngomqu- pnr-ybndelbseenklb-ntufyok-devices/eimer-qnhgspndoup-dlqk SARS-CoV-2 Source [employer] Swab Lower Respiratory Culture Sputum Induced [[id number]] Collected: 08/15/22 0740 Lab Status: Final result Specimen: Sputum Induced Updated: 08/17/22 1015 Lower Respiratory Culture Rare normal upper respiratory wiley Gram Stain -- Many Neutrophils Few squamous epithelial cells Rare mixed bacterial morphotypes suggestive of normal upper respiratory wiley Blood culture [[id number]] Collected: 08/15/22 0110 Lab Status: Final result Specimen: Blood Updated: 08/20/22 0701 Blood Culture No growth at 5 days. MRSA PCR Screen ([facility] [place] [facility]/CGP/APD/NLH) [[id number]] Collected: 08/15/22 0050 Lab Status: Final result Specimen: Nasopharyngeal Swab Updated: 08/17/22 1419 MRSA Result Negative MRSA Interp -- Methicillin-resistant Staphylococcus aureus (MRSA) is NOT DETECTED The MRSA target DNA sequences (mec and SCC) were not detected within the acceptable ranges using the Xpert MRSA NxG on the GeneXpert Dx System ([employer]). This suggests the absence of MRSA in the patient specimen submitted for testing. This test is cleared by the U.S. Food and Drug Administration for clinical use and its performance characteristics have been verified by the [facility] at [facility]. This result does not rule out the presence of any other organisms. Rare false negative results may occur if MRSA is present at low concentrations with much higher concentrations of other organisms including MRSE or S. aureus with an empty SCC cassette. Comment: [VERIFIED DATE]08.17.22 Verified By:Shannon Smiley (Electronic Signature) Blood culture [[id number]] Collected: 08/14/22 2355 Lab Status: Final result [...] who have questions please contact the health animal care taker that requested your imaging first. Electronically signed by: Davi Terry MD, [facility] ([phone]), at 08/15/2022 3:53 AM XR Abdomen 1 view (Generic) (Exam [...] who have questions please contact the health animal care taker that requested your imaging first. Electronically signed by: Liliane Adams MD, [facility] ([phone]), at 08/15/2022 9:05 AM XR Chest One [...] who have questions please contact the health animal care taker that requested your imaging first. Electronically signed by: Davi Terry MD, [facility] ([phone]), at 08/15/2022 3:55 AM XR Abdomen 1 [...] who have questions please contact the health animal care taker that requested your imaging first. Electronically signed by: Davi Terry MD, [facility] ([phone]), at 08/15/2022 6:41 AM XR Chest One [...] who have questions please contact the health animal care taker that requested your imaging first. Electronically signed by: Alfonso Adams MD, [facility] ([phone]), at 08/16/2022 10:[address] Head wo [...] who have questions please contact the health animal care taker that requested your imaging first. Electronically signed by: Moustapha Correa MD, [facility] ([phone]), at 08/16/2022 11:19 PM XR Abdomen 1 [...] who have questions please contact the health animal care taker that requested your imaging first. Head wo Contrast (Generic) (Exam End: 08/18/2022 3:14 PM) Impression No acute intracranial process. Thank you for letting us participate in the care of this patient. If you are a health care provider and have any questions regarding this report, please contact the number below. For patients who have questions please contact the health animal care taker that requested your imaging first. Electronically signed by: Antonio Jordan MD, [facility] ([phone]), at 08/18/2022 3:18 PM XR Chest One [...] who have questions please contact the health animal care taker that requested your imaging first. Electronically signed by: Alan De Guzman MD, [facility] ([phone]), at 08/19/2022 3:14 PM MRI Brain wo Contrast (Exam End: 08/19/2022 10:15 PM) Impression No acute infarction, mass or mass effect. Thank you for letting us participate in the care of this patient. If you are a health care provider and have any questions regarding this report, please contact the number below. For patients who have questions please contact the health animal care taker that requested your imaging first. Electronically signed by: Jagdeep Lee MD, [facility] ([phone]), at 08/20/2022 3:34 AM XR Chest for [...] who have questions please contact the health animal care taker that requested your imaging first. Electronically signed by: Alan De Guzman MD, [facility] ([phone]), at 08/19/2022 4:[address] Hip w [...] who have questions please contact the health animal care taker that requested your imaging first. Electronically signed by: Aicha Chowdhury MD, [facility] ([phone]), at 08/21/2022 9:[address] Chest w [...] who have questions please contact the health animal care taker that requested your imaging first. Electronically signed by: Jagdeep Lee MD, [facility] ([phone]), at 08/21/2022 6:56 AM XR Hip 2-3 Views Left (Exam End: 08/22/2022 12:19 AM) Impression No radiographic evidence of infection. Thank you for letting us participate in the care of this patient. If you are a health care provider and have any questions regarding this report, please contact the number below. For patients who have questions please contact the health animal care taker that requested your imaging first. Electronically signed by: [facility] ([phone]), at 08/22/2022 12:43 PM XR Pelvis (Generic) (Exam End: 08/22/2022 12:19 AM) Impression No radiographic evidence of infection status post left hip ORIF. Thank you for letting us participate in the care of this patient. If you are a health care provider and have any questions regarding this report, please contact the number below. For patients who have questions please contact the health animal care taker that requested your imaging first. Electronically signed by: Richard Billings MD, [facility] ([phone]), at 08/22/2022 10:[address] Angiogram Coronary [...] who have questions please contact the health animal care taker that requested your imaging first. Electronically signed by: Arlette Mays MD, [facility] ([phone]), at 08/27/2022 11:[address] Chest wo Contrast (Generic) (Exam End: 08/27/2022 8:58 AM) Impression Stable findings of multifocal pneumonia. No interval abnormality. Thank you for letting us participate in the care of this patient. If you are a health care provider and have any questions regarding this report, please contact the number below. For patients who have questions please contact the health animal care taker that requested your imaging first. Electronically signed by: MINH QUIROGA MD, [facility] ([phone]), at 08/27/2022 10:48 AM XR Fluoro Barium [...] who have questions please contact the health animal care taker that requested your imaging first. Electronically signed by: Aron Billings MD, [facility] ([phone]), at 08/31/2022 12:02 PM XR Fluoro Barium [...] who have questions please contact the health animal care taker that requested your imaging first. Electronically signed by: Alfonso Adams MD, [facility] ([phone]), at 09/04/2022 10:57 AM XR Abdomen 1 [...] who have questions please contact the health animal care taker that requested your imaging first. Electronically signed by: Jagdeep Lee MD, [facility] ([phone]), at 09/04/2022 10:35 PM XR Chest One [...] who have questions please contact the health animal care taker that requested your imaging first. Electronically signed by: Jagdeep Lee MD, [facility] ([phone]), at 09/04/2022 10:35 PM XR Chest One View (Exam End: 09/05/2022 9:24 AM) Impression 1. Reposition enteric tube now extending below the diaphragm and included ticnr-er-arwn. 2. Similar appearance of elevated right hemidiaphragm and linear/patchy bibasilar opacities which may represent atelectasis or possibly aspiration. Thank you for letting us participate in the care of this patient. If you are a health care provider and have any questions regarding this report, please contact the number below. For patients who have questions please contact the health animal care taker that requested your imaging first. Electronically signed by: AUDI PERDOMO MD, [facility] ([phone]), at 09/05/2022 3:43 PM Medications: Scheduled: ??? [...] RD??c/b??esophagitis &??Farrell's esophagus, who was admitted to [facility] [facility] on 08/14/2022 (now on Hospital Day #23) [...] them thatshe should continue to work with PT/OT/PLAY BACK OPERATOR/nursing but that the most recent assessments still recommended acute rehab. Today's plan: - Continue tube feeds - Diabetes Team aware and titrating insulin accordingly - IR consulted for PEG placement this week # Bipolar Disorder - Continue Seroquel 100mg nightly for now, patient and want it uptitrated before discharge - C/w valproate 300mg q6h - PLAY BACK OPERATOR following, NPO at present - Psychiatry Consult, [...] Medicine PGY1 Medicine Team: Jose Juan, Pager #[phone] Date: 09/07/2022 Associated attestation - Molina Flores [...] of two midnights or is on the [facility] inpatient only procedure list (status C) [...] the original note were not included. Inpatient [facility] Medicine Progress Note 09/06/2022 Patient Name: ISHAN IRVING Date of : 1960 Age: 62 y.o. Hospital Admit Date: 08/14/2022 Hospital Day: 23 Inpatient Attending: Richard Pascal MD PCP: Chris Stanley APRN ([phone]) ID: Ishan Irving is a 62 y.o. 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.5 years) c/b chronic pancreatitis, iron deficiency anemia, ??GERD??c/b??esophagitis &??Farrell's esophagus, who was admitted to [facility] on 08/14/2022 (now on Hospital Day #23) [...] Date/Time Lower Respiratory Culture Bronchial Alveolar Lavage [[id number]] Collected: 08/21/221649 Lab Status: Final result Specimen: Bronchial Alveolar Lavage Updated: 08/23/22 0741 Lower Respiratory Culture Rare mixed bacterial morphotypes suggestive of normal upper respiratory wiley Gram Stain -- Few Neutrophils seen No squamous epithelial cells seen No microorganisms seen. Fungus Culture & Calc Stain Bronchial Alveolar Lavage [[id number]] (Abnormal) Collected: 08/21/221649 Lab Status: Preliminary result Specimen: Bronchial Alveolar Lavage Updated: 08/24/22 145 AFB culture Bronchial Alveolar Lavage [[id number]] Collected: 08/21/221649 Lab Status: Preliminary result Specimen: Bronchial Alveolar Lavage Updated: 08/24/222218 Acid Fast Bacilli Culture -- No Acid Fast Bacilli isolated to date If active tuberculosis is suspected, the patient should be on AIRBOR[employer] PRECAUTIONS. Call Infection Prevention for assistance if needed. Acid Fast Stain No Acid Fast Bacilli seen Fungus culture [[id number]] (Abnormal) Collected: 08/21/221649 Lab Status: Preliminary result Specimen: Bronchial Alveolar Lavage Updated: 08/24/22 145 Fungus Culture Rare Jacky albicans Calcofluor White Stain [[id number]] Collected: 08/21/221649 Lab Status: Final result Specimen: Bronchial Alveolar Lavage Updated: 08/21/22 2016 Calcofluor Stain Calcofluor White Preparation: Negative Lower Respiratory Culture Bronchial Alveolar Lavage [[id number]] Collected: 08/21/221644 Lab Status: Final result Specimen: Bronchial Alveolar Lavage Updated: 08/23/2241 Lower Respiratory Culture Rare mixed bacterial morphotypes suggestive of normal upper respiratory wiley Gram Stain -- Moderate Neutrophils seen No squamous epithelial cells seen No microorganisms seen. Fungus Culture & Calc Stain Bronchial Alveolar Lavage [[id number]] (Abnormal) Collected: 08/21/221644 Lab Status: Preliminary result Specimen: Bronchial Alveolar Lavage Updated: 08/24/22 145 AFB culture Bronchial Alveolar Lavage [[id number]] Collected: 04/14/23 1645 Lab Status: Preliminary result Specimen: Bronchial Alveolar Lavage Updated: 08/24/22 2221 Acid Fast Bacilli Culture -- No Acid Fast Bacilli isolated to date If active tuberculosis is suspected, the patient should be on AIRBOR[employer] PRECAUTIONS. Call Infection Prevention for assistance if needed. Acid Fast Stain No Acid Fast Bacilli seen Fungus culture [[id number]] (Abnormal) Collected: 08/21/22 1645 Lab Status: Preliminary result Specimen: Bronchial Alveolar Lavage Updated: 08/24/22 1453 Fungus Culture Rare Jacky albicans Calcofluor White Stain [[id number]] Collected: 08/21/22 164 Lab Status: Final result Specimen: Bronchial Alveolar Lavage Updated: 08/21/22 2017 Calcofluor Stain Calcofluor White Preparation: Negative Blood culture [[id number]] Collected: 08/19/22 1720 Lab Status: Final result Specimen: Blood Updated: 08/24/22 2301 Blood Culture No growth at 5 days. Lower Respiratory Culture Sputum Induced [[id number]] Collected: 08/19/22 1451 Lab Status: Final result Specimen: Sputum Induced Updated: 08/21/22 0948 Lower Respiratory Culture Rare mixed bacterial morphotypes suggestive of normal upper respiratory wiley Gram Stain -- Many Neutrophils seen Few squamous epithelial cells seen No microorganisms seen. Blood culture [[id number]] Collected: 08/19/22 1330 Lab Status: Final result Specimen: Blood Updated: 08/24/22 1501 Blood Culture No growth at 5 days. Legionella Urinary Antigen [[id number]] Collected: 08/18/22 1013 Lab Status: Final result [...] Catheter Urine; Other; sepsis, bacteria on UA [[id number]] Collected: 08/15/22 1225 Lab Status: Final result Specimen: Indwelling Catheter Urine Updated: 08/16/22 0804 Urine Culture 1,000-9,000 cfu/ml Insignificant growth COVID-19 PCR [[id number]] Collected: 08/15/22 1150 Lab Status: Final result [...] using the Simplexa COVID-19 Direct Assay by [employer] as authorized by the FDA issued Emergency [...] Department of Pathology and Laboratory Medicine at [facility], certified under the Clinical Laboratory Improvement Amendments [...] fact sheets at the following FDA website: https://www.fda.gov/medical-devices/msmguluubve-lnasldv-4888-ieppq-18-yrxuwgpgt- vyw-wunzctnfctbcpu-hgbiyrn-devices/etuos-gbuyketbluf-cghl SARS-CoV-2 Source [employer]OM[employer]BER Swab Lower Respiratory Culture Sputum Induced [[id number]] Collected: 08/15/22 0740 Lab Status: Final result Specimen: Sputum Induced Updated: 08/17/22 1015 Lower Respiratory Culture Rare normal upper respiratory wiley Gram Stain -- Many Neutrophils Few squamous epithelial cells Rare mixed bacterial morphotypes suggestive of normal upper respiratory wiley Blood culture [[id number]] Collected: 08/15/22 0110 Lab Status: Final result Specimen: Blood Updated: 08/20/22 0701 Blood Culture No growth at 5 days. MRSA PCR Screen ([facility] [place]/CGP/APD/NLH) [[id number]] Collected: 08/15/22 0050 Lab Status: Final result Specimen: Nasopharyngeal Swab Updated: 08/17/22 1419 MRSA Result Negative MRSA Interp -- Methicillin-resistant Staphylococcus aureus (MRSA) is NOT DETECTED The MRSA target DNA sequences (mec and SCC) were not detected within the acceptable ranges using the Xpert MRSA NxG on the GeneXpert Dx System ([employer]). This suggests the absence of MRSA in the patient specimen submitted for testing. This test is cleared by the U.S. Food and Drug Administration for clinical use and its performance characteristics have been verified by the [facility] at [facility]. This result does not rule out the presence of any other organisms. Rare false negative results may occur if MRSA is present at low concentrations with much higher concentrations of other organisms including MRSE or S. aureus with an empty SCC cassette. Comment: [VERIFIED DATE]08.17.22 Verified By:Shannon Smiley (Electronic Signature) Blood culture [[id number]] Collected: 08/14/22 0891 Lab Status: Final result Specimen: Blood Updated: [...] who have questions please contact the health animal care taker that requested your imaging first. Electronically signed by: Davi Terry MD, [facility] ([phone]), at 08/15/2022 3:53 AM XR Abdomen 1 view (Generic) (Exam [...] who have questions please contact the health animal care taker that requested your imaging first. Electronically signed by: Liliane Adams MD, [facility] ([phone]), at 08/15/2022 9:05 AM XR Chest One [...] who have questions please contact the health animal care taker that requested your imaging first. Electronically signed by: Davi Terry MD, [facility] ([phone]), at 08/15/2022 3:55 AM XR Abdomen 1 [...] who have questions please contact the health animal care taker that requested your imaging first. Electronically signed by: Davi Terry MD, [facility] ([phone]), at 08/15/2022 6:41 AM XR Chest One [...] who have questions please contact the health animal care taker that requested your imaging first. Electronically signed by: Alfonso Adams MD, [facility] ([phone]), at 08/16/2022 10:[address] Head wo [...] who have questions please contact the health animal care taker that requested your imaging first. Electronically signed by: Moustapha Correa MD, [facility] ([phone]), at 08/16/2022 11:19 PM XR Abdomen 1 [...] who have questions please contact the health animal care taker that requested your imaging first. Head wo Contrast (Generic) (Exam End: 08/18/2022 3:14 PM) Impression No acute intracranial process. Thank you for letting us participate in the care of this patient. If you are a health care provider and have any questions regarding this report, please contact the number below. For patients who have questions please contact the health animal care taker that requested your imaging first. Electronically signed by: Antonio Jordan MD, [facility] ([phone]), at 08/18/2022 3:18 PM XR Chest One [...] who have questions please contact the health animal care taker that requested your imaging first. Electronically signed by: Alan De Guzman MD, [facility] ([phone]), at 08/19/2022 3:14 PM MRI Brain wo Contrast (Exam End: 08/19/2022 10:15 PM) Impression No acute infarction, mass or mass effect. Thank you for letting us participate in the care of this patient. If you are a health care provider and have any questions regarding this report, please contact the number below. For patients who have questions please contact the health animal care taker that requested your imaging first. Electronically signed by: Jagdeep Lee MD, [facility] ([phone]), at 08/20/2022 3:34 AM XR Chest for [...] who have questions please contact the health animal care taker that requested your imaging first. Electronically signed by: Alan De Guzman MD, [facility] ([phone]), at 08/19/2022 4:[address] Hip w [...] who have questions please contact the health animal care taker that requested your imaging first. Electronically signed by: Aicha Chowdhury MD, [facility] ([phone]), at 08/21/2022 9:[address] Chest w [...] who have questions please contact the health animal care taker that requested your imaging first. Electronically signed by: Jagdeep Lee MD, [facility] ([phone]), at 08/21/2022 6:56 AM XR Hip 2-3 Views Left (Exam End: 08/22/2022 12:19 AM) Impression No radiographic evidence of infection. Thank you for letting us participate in the care of this patient. If you are a health care provider and have any questions regarding this report, please contact the number below. For patients who have questions please contact the health animal care taker that requested your imaging first. Electronically signed by: Viktor Cervantes MD, [facility] ([phone]), at 08/22/2022 12:43 PM XR Pelvis (Generic) (Exam End: 08/22/2022 12:19 AM) Impression No radiographic evidence of infection status post left hip ORIF. Thank you for letting us participate in the care of this patient. If you are a health care provider and have any questions regarding this report, please contact the number below. For patients who have questions please contact the health animal care taker that requested your imaging first. Electronically signed by: Richard Billings MD, [facility] ([phone]), at 08/22/2022 10:[address] Angiogram Coronary [...] who have questions please contact the health animal care taker that requested your imaging first. Electronically signed by: Arlette Mays MD, [facility] ([phone]), at 08/27/2022 11:[address] Chest wo Contrast (Generic) (Exam End: 08/27/2022 8:58 AM) Impression Stable findings of multifocal pneumonia. No interval abnormality. Thank you for letting us participate in the care of this patient. If you are a health care provider and have any questions regarding this report, please contact the number below. For patients who have questions please contact the health animal care taker that requested your imaging first. Electronically signed by: MINH QUIROGA MD, [facility] ([phone]), at 08/27/2022 10:48 AM XR Fluoro Barium [...] who have questions please contact the health animal care taker that requested your imaging first. Electronically signed by: Aron Billings MD, [facility] ([phone]), at 08/31/2022 12:02 PM XR Fluoro Barium [...] who have questions please contact the health animal care taker that requested your imaging first. Electronically signed by: Alfonso Adams MD, [facility] ([phone]), at 09/04/2022 10:57 AM XR Abdomen 1 [...] who have questions please contact the health animal care taker that requested your imaging first. Electronically signed by: Jagdeep Lee MD, [facility] ([phone]), at 09/04/2022 10:35 PM XR Chest One [...] who have questions please contact the health animal care taker that requested your imaging first. Electronically signed by: Jagdeep Lee MD, [facility] ([phone]), at 09/04/2022 10:35 PM XR Chest One View (Exam End: 09/05/2022 9:24 AM) Impression 1. Reposition enteric tube now extending below the diaphragm and included [id number]. 2. Similar appearance of elevated right hemidiaphragm and linear/patchy bibasilar opacities which may represent atelectasis or possibly aspiration. Thank you for letting us participate in the care of this patient. If you are a health care provider and have any questions regarding this report, please contact the number below. For patients who have questions please contact the health animal care taker that requested your imaging first. Electronically signed by: AUDI PERDOMO MD, [facility] ([phone]), at 09/05/2022 3:43 PM Medications: Scheduled: ??? [...] RD??c/b??esophagitis &??Farrell's esophagus, who was admitted to [facility] on 08/14/2022 (now on Hospital Day #23) [...] that she should continue to work with PT/OT/PLAY BACK OPERATOR/nursing but that the most recent assessments still recommended acute rehab. Today's plan: - Tube feeds at goal - Diabetes Team aware and titrating insulin accordingly - bridle NG tube to ensure do not need to replace NG before PEG # Bipolar Disorder - Continue Seroquel 100mg nightly - C/w valproate 300mg q6h > level 25mg/L 08/29 - PLAY BACK OPERATOR following, NPO at present - Psychiatry Consult, [...] Medicine PGY2 Medicine Team: Jose Juan, Pager #[phone] Date: 09/06/2022 Associated attestation - Richard Pascal [...] of two midnights or is on the [facility] inpatient only procedure list (status C) [...] physician. These images were archived digitally in [facility] and I independently interpreted the images at [...] RD??c/b??esophagitis &??Farrell's esophagus, who was admitted to [facility] on 08/14/2022 (now on Hospital Day #21), [...] Richard Pascal MD PCP: Chris Stanley APRN ([phone]) No chief complaint on file. ID: Ishan Irving is a 62 y.o. 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.5 years) c/b chronic pancreatitis, iron deficiency anemia, ??GERD??c/b??esophagitis &??Farrell's esophagus, who was admitted to [facility] on 08/14/2022 (now on Hospital Day #22), [...] Gas): No results found for: PHART, PO2ART, BMH3HRN, VLY9HTQ VBG (Venous Blood Gas): No results for input(s): PHVEN, DSS9MSO, PO2VEN, IPZ7XQH, BEVEN, KNI6BBC in the last 72 hours. EKG: Lab [...] Date/Time Lower Respiratory Culture Bronchial Alveolar Lavage [[id number]] Collected: 08/21/221649 Lab Status: Final result Specimen: Bronchial Alveolar Lavage Updated: 08/23/22 0741 Lower Respiratory Culture Rare mixed bacterial morphotypes suggestive of normal upper respiratory wiley Gram Stain -- Few Neutrophils seen No squamous epithelial cells seen No microorganisms seen. Fungus Culture & Calc Stain Bronchial Alveolar Lavage [[id number]] (Abnormal) Collected: 08/21/221649 Lab Status: Preliminary result Specimen: Bronchial Alveolar Lavage Updated: 08/24/22 145 AFB culture Bronchial Alveolar Lavage [[id number]] Collected: 08/21/221649 Lab Status: Preliminary result Specimen: Bronchial Alveolar Lavage Updated: 08/24/22 221 Acid Fast Bacilli Culture -- No Acid Fast Bacilli isolated to date If active tuberculosis is suspected, the patient should be on [employer]. Call Infection Prevention for assistance if needed. Acid Fast Stain No Acid Fast Bacilli seen Fungus culture [[id number]] (Abnormal) Collected: 08/21/221649 Lab Status: Preliminary result Specimen: Bronchial Alveolar Lavage Updated: 08/24/22 145 Fungus Culture Rare Jacky albicans Calcofluor White Stain [[id number]] Collected: 08/21/221649 Lab Status: Final result Specimen: Bronchial Alveolar Lavage Updated: 08/21/222015 Calcofluor Stain Calcofluor White Preparation: Negative Lower Respiratory Culture Bronchial Alveolar Lavage [[id number]] Collected: 08/21/221644 Lab Status: Final result Specimen: Bronchial Alveolar Lavage Updated: 08/23/2241 Lower Respiratory Culture Rare mixed bacterial morphotypes suggestive of normal upper respiratory wiley Gram Stain -- Moderate Neutrophils seen No squamous epithelial cells seen No microorganisms seen. Fungus Culture & Calc Stain Bronchial Alveolar Lavage [[id number]] (Abnormal) Collected: 08/21/221644 Lab Status: Preliminary result Specimen: Bronchial Alveolar Lavage Updated: 08/24/22 145 AFB culture Bronchial Alveolar Lavage [[id number]] Collected: 08/21/221644 Lab Status: Preliminary result Specimen: Bronchial Alveolar Lavage Updated: 08/24/22 2221 Acid Fast Bacilli Culture -- No Acid Fast Bacilli isolated to date If active tuberculosis is suspected, the patient should be on [employer]. Call Infection Prevention for assistance if needed. Acid Fast Stain No Acid Fast Bacilli seen Fungus culture [[id number]] (Abnormal) Collected: 08/21/22 1645 Lab Status: Preliminary result Specimen: Bronchial Alveolar Lavage Updated: 08/24/22 1453 Fungus Culture Rare Jacky albicans Calcofluor White Stain [[id number]] Collected: 08/21/22 164 Lab Status: Final result Specimen: Bronchial Alveolar Lavage Updated: 08/21/22 2017 Calcofluor Stain Calcofluor White Preparation: Negative Blood culture [[id number]] Collected: 08/19/22 1720 Lab Status: Final result Specimen: Blood Updated: 08/24/22 2301 Blood Culture No growth at 5 days. Lower Respiratory Culture Sputum Induced [[id number]] Collected: 08/19/22 1451 Lab Status: Final result Specimen: Sputum Induced Updated: 08/21/22 0948 Lower Respiratory Culture Rare mixed bacterial morphotypes suggestive of normal upper respiratory wiley Gram Stain -- Many Neutrophils seen Few squamous epithelial cells seen No microorganisms seen. Blood culture [[id number]] Collected: 08/19/22 1330 Lab Status: Final result Specimen: Blood Updated: 08/24/22 1501 Blood Culture No growth at 5 days. Legionella Urinary Antigen [[id number]] Collected: 08/18/22 1013 Lab Status: Final result [...] Catheter Urine; Other; sepsis, bacteria on UA [[id number]] Collected: 08/15/22 1225 Lab Status: Final result Specimen: Indwelling Catheter Urine Updated: 08/16/22 0804 Urine Culture 1,000-9,000 cfu/ml Insignificant growth COVID-19 PCR [[id number]] Collected: 08/15/22 1150 Lab Status: Final result [...] using the Simplexa COVID-19 Direct Assay by [employer] as authorized by the FDA issued Emergency [...] Department of Pathology and Laboratory Medicine at [facility], certified under the Clinical Laboratory Improvement Amendments [...] fact sheets at the following FDA website: https://www.fda.gov/medical-devices/wfhdyrpebrb-azmsvge-7470-mukfg-67-wxoraqhzp- hmi-hdecdqrnaxqffm-obedyyi-devices/binqi-pldpjxpivez-apdw SARS-CoV-2 Source E[employer]OMICS FACULTY MEMBER Swab Lower Respiratory Culture Sputum Induced [[id number]] Collected: 08/15/22 0740 Lab Status: Final result Specimen: Sputum Induced Updated: 08/17/22 1015 Lower Respiratory Culture Rare normal upper respiratory wiley Gram Stain -- Many Neutrophils Few squamous epithelial cells Rare mixed bacterial morphotypes suggestive of normal upper respiratory wiley Blood culture [[id number]] Collected: 08/15/22 0110 Lab Status: Final result Specimen: Blood Updated: 08/20/22 0701 Blood Culture No growth at 5 days. MRSA PCR Screen ([facility]/CGP/APD/NLH) [[id number]] Collected: 08/15/22 0050 Lab Status: Final result Specimen: Nasopharyngeal Swab Updated: 08/17/22 1419 MRSA Result Negative MRSA Interp -- Methicillin-resistant Staphylococcus aureus (MRSA) is NOT DETECTED The MRSA target DNA sequences (mec and SCC) were not detected within the acceptable ranges using the Xpert MRSA NxG on the GeneXpert Dx System ([employer]). This suggests the absence of MRSA in the patient specimen submitted for testing. This test is cleared by the U.S. Food and Drug Administration for clinical use and its performance characteristics have been verified by the [facility] at [facility]. This result does not rule out the presence of any other organisms. Rare false negative results may occur if MRSA is present at low concentrations with much higher concentrations of other organisms including MRSE or S. aureus with an empty SCC cassette. Comment: [VERIFIED DATE]08.17.22 Verified By:Shannon Smiley (Electronic Signature) Blood culture [[id number]] Collected: 08/14/22 2355 Lab Status: Final result [...] who have questions please contact the health animal care taker that requested your imaging first. Electronically signed by: Davi Terry MD, [facility] ([phone]), at 08/15/2022 3:53 AM XR Abdomen 1 view (Generic) (Exam [...] who have questions please contact the health animal care taker that requested your imaging first. Electronically signed by: Liliane Adams MD, [facility] ([phone]), at 08/15/2022 9:05 AM XR Chest One [...] who have questions please contact the health animal care taker that requested your imaging first. Electronically signed by: Davi Terry MD, [facility] ([phone]), at 08/15/2022 3:55 AM XR Abdomen 1 [...] who have questions please contact the health animal care taker that requested your imaging first. Electronically signed by: Davi Terry MD, [facility] ([phone]), at 08/15/2022 6:41 AM XR Chest One [...] who have questions please contact the health animal care taker that requested your imaging first. Electronically signed by: Alfonso Adams MD, [facility] ([phone]), at 08/16/2022 10:[address] Head wo [...] who have questions please contact the health animal care taker that requested your imaging first. Electronically signed by: Moustapha Correa MD, [facility] ([phone]), at 08/16/2022 11:19 PM XR Abdomen 1 [...] who have questions please contact the health animal care taker that requested your imaging first. Head wo Contrast (Generic) (Exam End: 08/18/2022 3:14 PM) Impression No acute intracranial process. Thank you for letting us participate in the care of this patient. If you are a health care provider and have any questions regarding this report, please contact the number below. For patients who have questions please contact the health animal care taker that requested your imaging first. Electronically signed by: Antonio Jordan MD, [facility] ([phone]), at 08/18/2022 3:18 PM XR Chest One [...] who have questions please contact the health animal care taker that requested your imaging first. Electronically signed by: Alan De Guzman MD, [facility] ([phone]), at 08/19/2022 3:14 PM MRI Brain wo Contrast (Exam End: 08/19/2022 10:15 PM) Impression No acute infarction, mass or mass effect. Thank you for letting us participate in the care of this patient. If you are a health care provider and have any questions regarding this report, please contact the number below. For patients who have questions please contact the health animal care taker that requested your imaging first. Electronically signed by: Jagdeep Lee MD, [facility] ([phone]), at 08/20/2022 3:34 AM XR Chest for [...] who have questions please contact the health animal care taker that requested your imaging first. Electronically signed by: Alan De Guzman MD, [facility] ([phone]), at 08/19/2022 4:[address] Hip w [...] who have questions please contact the health animal care taker that requested your imaging first. Electronically signed by: Aicha Chowdhury MD, [facility] ([phone]), at 08/21/2022 9:[address] Chest w [...] who have questions please contact the health animal care taker that requested your imaging first. Electronically signed by: Jagdeep Lee MD, [facility] ([phone]), at 08/21/2022 6:56 AM XR Hip 2-3 Views Left (Exam End: 08/22/2022 12:19 AM) Impression No radiographic evidence of infection. Thank you for letting us participate in the care of this patient. If you are a health care provider and have any questions regarding this report, please contact the number below. For patients who have questions please contact the health animal care taker that requested your imaging first. Electronically signed by: Viktor Cervantes MD, [facility] ([phone]), at 08/22/2022 12:43 PM XR Pelvis (Generic) (Exam End: 08/22/2022 12:19 AM) Impression No radiographic evidence of infection status post left hip ORIF. Thank you for letting us participate in the care of this patient. If you are a health care provider and have any questions regarding this report, please contact the number below. For patients who have questions please contact the health animal care taker that requested your imaging first. Electronically signed by: Richard Billings MD, [facility] ([phone]), at 08/22/2022 10:[address] Angiogram Coronary [...] who have questions please contact the health animal care taker that requested your imaging first. Electronically signed by: Arlette Mays MD, [facility] ([phone]), at 08/27/2022 11:[address] Chest wo Contrast (Generic) (Exam End: 08/27/2022 8:58 AM) Impression Stable findings of multifocal pneumonia. No interval abnormality. Thank you for letting us participate in the care of this patient. If you are a health care provider and have any questions regarding this report, please contact the number below. For patients who have questions please contact the health animal care taker that requested your imaging first. Electronically signed by: MINH QUIROGA MD, [facility] ([phone]), at 08/27/2022 10:48 AM XR Fluoro Barium [...] who have questions please contact the health animal care taker that requested your imaging first. Electronically signed by: Aron Billings MD, [facility] ([phone]), at 08/31/2022 12:02 PM XR Fluoro Barium [...] who have questions please contact the health animal care taker that requested your imaging first. Electronically signed by: Alfosno Adams MD, [facility] ([phone]), at 09/04/2022 10:57 AM XR Abdomen 1 [...] who have questions please contact the health animal care taker that requested your imaging first. Electronically signed by: Jagdeep Lee MD, [facility] ([phone]), at 09/04/2022 10:35 PM XR Chest One [...] who have questions please contact the health animal care taker that requested your imaging first. Electronically signed by: Jagdeep Lee MD, [facility] ([phone]), at 09/04/2022 10:35 PM Medications: Scheduled: ??? [...] anemia,??GERD??c/b??esophagitis &??Farrell's esophagus, who was admitted to [facility] on 08/14/2022 (now on Hospital Day #22) [...] level 08/29. - level 25mg/L 08/29 - PLAY BACK OPERATOR to evaluate, Recommend NPO at present - [...] Medicine PGY1 Medicine Team: Jose Juan, Pager #[phone] Date: 09/05/2022 Associated attestation - Richard Pascal [...] of two midnights or is on the [facility] inpatient only procedure list (status C) [...] deficiency anemia,??GERD??c/b??esophagitis &??Farrell's esophagus??presenting in transfer from [facility], suspected to be in cardiogenic shock and [...] of 110 mls/hr Monitoring:??Q4 Elsie Erickson APRN [facility] Endocrinology Diabetes Management Pager [phone] minutes of this 35 minute visit was spent with the patient in counseling on diabetes and treatment plan, reviewing all glucose and insulin data as well as relevant laboratory results with the patient, and coordination of care on the inpatient unit including nursing and primary team. * Feroz Portillo, PILE DRIVER - 09/04/2022 1:50 PM EDT Physical Therapy [...] deficiency anemia,??GERD??c/b??esophagitis &??Farrell's esophagus??presenting in transfer from [facility], suspected to be in cardiogenic shock and [...] TE-F x 3 FEROZ PORTILLO PTA Pager: [phone] Physical Therapy Inpatient Rehabilitation Department * Micheline Long, PLAY BACK OPERATOR - 09/04/2022 9:48 AM EDT Speech-Language Pathology Modified Barium Swallow Re-Evaluation ?? Patient Profile:??Ishan Irving is a 62 year old female with a medical history notable for??recent L femoral neck fracture,??bipolar disorder, resolving medication-induced Parkinsonism, insulin-dependent diabetes mellitus,??hx of alcohol use disorder (reported to be in remission for 1.5 years)c/b chronic pancreatitis, iron deficiency anemia,??GERD??c/b??esophagitis &??Farrell's esophagus??presenting in transfer from [facility]??on 08/14/2022, suspected to be in cardiogenic shock and found to be in mixed shock with concern for stress cardiomyopathy.??PLAY BACK OPERATOR service was consulted to assess oropharyngeal swallow [...] Barium Swallow Study (08/31/2022) - Petty Mccullough, PLAY BACK OPERATOR ??? Audible aspiration with thin liquids by [...] nutrition/hydration to provide nutrition during rehab course. PLAY BACK OPERATOR will f/u for ongoing swallow intervention and [...] dependent Cognitive-Linguistic Status: delayed processing per primary PLAY BACK OPERATOR; Pt presented today with a flat affect, [...] Presentation(s): (all mixed with Barium) Thin liquid Penn consistency thickened liquid Puree Regular consistency Oral [...] head in the, Thin liquid: pyriform sinuses Penn thick liquid: valleculae Puree: valleculae Regular: valleculae [...] penetration, via straw (sequential sips)- audible aspiration Penn thick liquids: via straw (single and sequential [...] of alertness and/or delirium Advanced age Education: PLAY BACK OPERATOR informed pt that she would return to talk to her about the results and updated recommendations. Results and recommendations relayed to Irwin Jones MD via secure chat. Addendum: PLAY BACK OPERATOR returned to pt's room at 1230 to [...] agreement with the treatment plan and informed PLAY BACK OPERATOR of her continued goal to resume consuming [...] this regurgitation was also witnessed by primary PLAY BACK OPERATOR Petty Mccullough in the most recent treatment session and was reported to the primary PLAY BACK OPERATOR to be consistent with her baseline for [...] with trials of nectar thick liquids with PLAY BACK OPERATOR only. As pt's mental status continues to improve, she may benefit from swallow exercises targeting the pharyngeal phase of the swallow. However, swallow safety and efficiency appear significantly impacted by the esophageal phase of the swallow. Pt will require alternative means of nutrition to meet nutritional needs. Pt would benefit from skilled PLAY BACK OPERATOR services to maximize swallow function and safety to address limitations as noted above. Primary PLAY BACK OPERATOR Petty Mccullough will continue to follow. Diagnosis: [...] in ongoing cognitive-linguistic evaluation. Plan: Therapy Frequency (PLAY BACK OPERATOR Eval): 3-5x/wk Pt unable to give informed agreement with plan at this time due to decreased MS. Total Minutes (Speech Language Pathology): 30 Thank you for this consult with this patient. Please feel free to page me with any questions or concerns. Micheline Long, MS, [facility]-PLAY BACK OPERATOR Speech-Language Pathologist Pager # [phone] * Alla [...] Tenisha Sandy MD PCP: Chris Stanley APRN ([phone]) No chief complaint on file. ID: Ishan Irving is a 62 y.o. 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.5 years) c/b chronic pancreatitis, iron deficiency anemia, ??GERD??c/b??esophagitis &??Farrell's esophagus, who was admitted to [facility] on 08/14/2022 (now on Hospital Day #21), and transferred to Hospital Medicine team from Cardiology on 08/30 for mixed shock with concern for stress cardiomyopathy (Takotsubo Cardiomyopathy). 24 HOUR EVENTS & SUBJECTIVE: Yesterday: - PLAY BACK OPERATOR evaluated, NPO, ice chips for pleasure recommended yesterday, plan for MBS without FT tomorrow - Palliative Care consulted and met with patient - OT met with patient, recommend acute rehab facility - Psych met with patient, recommended continuing once daily dosing of Bupropion IR - GI consulted and recommends patient continue working w/PLAY BACK OPERATOR, can consider PEG if inadequate improvement - [...] Gas): No results found for: PHART, PO2ART, HYL6IEG, IYK0CNS VBG (Venous Blood Gas): No results for input(s): PHVEN, WRD5AYI, PO2VEN, LYI9TJB, BEVEN, ZPJ4YGY in the last 72 hours. EKG: Lab [...] Date/Time Lower Respiratory Culture Bronchial Alveolar Lavage [[id number]] Collected: 08/21/221649 Lab Status: Final result Specimen: Bronchial Alveolar Lavage Updated: 08/23/22 0741 Lower Respiratory Culture Rare mixed bacterial morphotypes suggestive of normal upper respiratory wiley Gram Stain -- Few Neutrophils seen No squamous epithelial cells seen No microorganisms seen. Fungus Culture & Calc Stain Bronchial Alveolar Lavage [[id number]] (Abnormal) Collected: 08/21/221649 Lab Status: Preliminary result Specimen: Bronchial Alveolar Lavage Updated: 08/24/22 1452 AFB culture Bronchial Alveolar Lavage [[id number]] Collected: 08/21/221649 Lab Status: Preliminary result Specimen: Bronchial Alveolar Lavage Updated: 08/24/22 2219 Acid Fast Bacilli Culture -- No Acid Fast Bacilli isolated to date If active tuberculosis is suspected, the patient should be on [employer]. Call Infection Prevention for assistance if needed. Acid Fast Stain No Acid Fast Bacilli seen Fungus culture [[id number]] (Abnormal) Collected: 08/21/221649 Lab Status: Preliminary result Specimen: Bronchial Alveolar Lavage Updated: 08/24/22 145 Fungus Culture Rare Jacky albicans Calcofluor White Stain [[id number]] Collected: 08/21/221649 Lab Status: Final result Specimen: Bronchial Alveolar Lavage Updated: 08/21/22 2016 Calcofluor Stain Calcofluor White Preparation: Negative Lower Respiratory Culture Bronchial Alveolar Lavage [[id number]] Collected: 08/21/22 164 Lab Status: Final result Specimen: Bronchial Alveolar Lavage Updated: 08/23/22 0741 Lower Respiratory Culture Rare mixed bacterial morphotypes suggestive of normal upper respiratory wiley Gram Stain -- Moderate Neutrophils seen No squamous epithelial cells seen No microorganisms seen. Fungus Culture & Calc Stain Bronchial Alveolar Lavage [[id number]] (Abnormal) Collected: 08/21/221644 Lab Status: Preliminary result Specimen: Bronchial Alveolar Lavage Updated: 08/24/22 1453 AFB culture Bronchial Alveolar Lavage [[id number]] Collected: 08/21/221644 Lab Status: Preliminary result Specimen: Bronchial Alveolar Lavage Updated: 08/24/22 222 Acid Fast Bacilli Culture -- No Acid Fast Bacilli isolated to date If active tuberculosis is suspected, the patient should be on [employer]. Call Infection Prevention for assistance if needed. Acid Fast Stain No Acid Fast Bacilli seen Fungus culture [[id number]] (Abnormal) Collected: 08/21/22 164 Lab Status: Preliminary result Specimen: Bronchial Alveolar Lavage Updated: 08/24/22 1453 Fungus Culture Rare Jacky albicans Calcofluor White Stain [[id number]] Collected: 08/21/221644 Lab Status: Final result Specimen: Bronchial Alveolar Lavage Updated: 08/21/22 2017 Calcofluor Stain Calcofluor White Preparation: Negative Blood culture [[id number]] Collected: 08/19/22 1720 Lab Status: Final result Specimen: Blood Updated: 08/24/22 2301 Blood Culture No growth at 5 days. Lower Respiratory Culture Sputum Induced [[id number]] Collected: 08/19/22 1451 Lab Status: Final result Specimen: Sputum Induced Updated: 08/21/22 0948 Lower Respiratory Culture Rare mixed bacterial morphotypes suggestive of normal upper respiratory wiley Gram Stain -- Many Neutrophils seen Few squamous epithelial cells seen No microorganisms seen. Blood culture [[id number]] Collected: 08/19/22 1330 Lab Status: Final result Specimen: Blood Updated: 08/24/22 1501 Blood Culture No growth at 5 days. Legionella Urinary Antigen [[id number]] Collected: 08/18/22 1013 Lab Status: Final result [...] Catheter Urine; Other; sepsis, bacteria on UA [[id number]] Collected: 08/15/22 1225 Lab Status: Final result Specimen: Indwelling Catheter Urine Updated: 08/16/22 0804 Urine Culture 1,000-9,000 cfu/ml Insignificant growth COVID-19 PCR [[id number]] Collected: 08/15/22 1150 Lab Status: Final result [...] using the Simplexa COVID-19 Direct Assay by Wistia as authorized by the FDA issued Emergency [...] Department of Pathology and Laboratory Medicine at [facility], certified under the Clinical Laboratory Improvement Amendments [...] fact sheets at the following FDA website: https://www.fda.gov/medical-devices/nqcuuwarhbj-pyntupp-9486-faogs-75-tvygznjle- wvu-ihqytbaacenenw-csgohgt-devices/ggvrq-hyuyxqznlax-nvyo SARS-CoV-2 Source ECONOMICS FACULTY MEMBER Swab Lower Respiratory Culture Sputum Induced [[id number]] Collected: 08/15/22 0740 Lab Status: Final result Specimen: Sputum Induced Updated: 08/17/22 1015 Lower Respiratory Culture Rare normal upper respiratory wiley Gram Stain -- Many Neutrophils Few squamous epithelial cells Rare mixed bacterial morphotypes suggestive of normal upper respiratory wiley Blood culture [[id number]] Collected: 08/15/22 0110 Lab Status: Final result Specimen: Blood Updated: 08/20/22 0701 Blood Culture No growth at 5 days. MRSA PCR Screen ([facility]/CG/APD/NL) [[id number]] Collected: 08/15/22 0050 Lab Status: Final result Specimen: Nasopharyngeal Swab Updated: 08/17/22 1419 MRSA Result Negative MRSA Interp -- Methicillin-resistant Staphylococcus aureus (MRSA) is NOT DETECTED The MRSA target DNA sequences (mec and SCC) were not detected within the acceptable ranges using the Xpert MRSA NxG on the GeneXpert Dx System ([employer]). This suggests the absence of MRSA in the patient specimen submitted for testing. This test is cleared by the U.S. Food and Drug Administration for clinical use and its performance characteristics have been verified by the [facility] at [facility]. This result does not rule out the presence of any other organisms. Rare false negative results may occur if MRSA is present at low concentrations with much higher concentrations of other organisms including MRSE or S. aureus with an empty SCC cassette. Comment: [VERIFIED DATE]08.17.22 Verified By:Shannon Smiley (Electronic Signature) Blood culture [[id number]] Collected: 08/14/22 2356 Lab Status: Final result Specimen: Blood Updated: [...] who have questions please contact the health animal care taker that requested your imaging first. Electronically signed by: Davi Terry MD, [facility] ([phone]), at 08/15/2022 3:53 AM XR Abdomen 1 view (Generic) (Exam [...] who have questions please contact the health animal care taker that requested your imaging first. Electronically signed by: Liliane dAams MD, [facility] ([phone]), at 08/15/2022 9:05 AM XR Chest One [...] who have questions please contact the health animal care taker that requested your imaging first. Electronically signed by: Davi Terry MD, [facility] ([phone]), at 08/15/2022 3:55 AM XR Abdomen 1 [...] who have questions please contact the health animal care taker that requested your imaging first. Electronically signed by: Davi Terry MD, [facility] ([phone]), at 08/15/2022 6:41 AM XR Chest One [...] who have questions please contact the health animal care taker that requested your imaging first. Electronically signed by: Alfonso Adams MD, [facility] ([phone]), at 08/16/2022 10:[address] Head wo [...] who have questions please contact the health animal care taker that requested your imaging first. Electronically signed by: Moustapha Correa MD, [facility] ([phone]), at 08/16/2022 11:19 PM XR Abdomen 1 [...] who have questions please contact the health animal care taker that requested your imaging first. Head wo Contrast (Generic) (Exam End: 08/18/2022 3:14 PM) Impression No acute intracranial process. Thank you for letting us participate in the care of this patient. If you are a health care provider and have any questions regarding this report, please contact the number below. For patients who have questions please contact the health animal care taker that requested your imaging first. Electronically signed by: Antonio Jordan MD, [facility] ([phone]), at 08/18/2022 3:18 PM XR Chest One [...] who have questions please contact the health animal care taker that requested your imaging first. Electronically signed by: Alan De Guzman MD, [facility] ([phone]), at 08/19/2022 3:14 PM MRI Brain wo Contrast (Exam End: 08/19/2022 10:15 PM) Impression No acute infarction, mass or mass effect. Thank you for letting us participate in the care of this patient. If you are a health care provider and have any questions regarding this report, please contact the number below. For patients who have questions please contact the health animal care taker that requested your imaging first. Electronically signed by: Jagdeep Lee MD, [facility] ([phone]), at 08/20/2022 3:34 AM XR Chest for [...] who have questions please contact the health animal care taker that requested your imaging first. Electronically signed by: Alan De Guzman MD, [facility] ([phone]), at 08/19/2022 4:[address] Hip w [...] who have questions please contact the health animal care taker that requested your imaging first. Electronically signed by: Aicha Chowdhury MD, [facility] ([phone]), at 08/21/2022 9:[address] Chest w [...] who have questions please contact the health animal care taker that requested your imaging first. Electronically signed by: Jagdeep Lee MD, [facility] ([phone]), at 08/21/2022 6:56 AM XR Hip 2-3 Views Left (Exam End: 08/22/2022 12:19 AM) Impression No radiographic evidence of infection. Thank you for letting us participate in the care of this patient. If you are a health care provider and have any questions regarding this report, please contact the number below. For patients who have questions please contact the health animal care taker that requested your imaging first. Electronically signed by: Viktor Cervantes MD, [facility] ([phone]), at 08/22/2022 12:43 PM XR Pelvis (Generic) (Exam End: 08/22/2022 12:19 AM) Impression No radiographic evidence of infection status post left hip ORIF. Thank you for letting us participate in the care of this patient. If you are a health care provider and have any questions regarding this report, please contact the number below. For patients who have questions please contact the health animal care taker that requested your imaging first. Electronically signed by: Richard Billings MD, [facility] ([phone]), at 08/22/2022 10:[address] Angiogram Coronary [...] who have questions please contact the health animal care taker that requested your imaging first. Electronically signed by: Arlette Mays MD, [facility] ([phone]), at 08/27/2022 11:[address] Chest wo Contrast (Generic) (Exam End: 08/27/2022 8:58 AM) Impression Stable findings of multifocal pneumonia. No interval abnormality. Thank you for letting us participate in the care of this patient. If you are a health care provider and have any questions regarding this report, please contact the number below. For patients who have questions please contact the health animal care taker that requested your imaging first. Electronically signed by: MINH QUIROGA MD, [facility] ([phone]), at 08/27/2022 10:48 AM XR Fluoro Barium [...] who have questions please contact the health animal care taker that requested your imaging first. Electronically signed by: Aron Billings MD, [facility] ([phone]), at 08/31/2022 12:02 PM Medications: Scheduled: ??? [...] anemia,??GERD??c/b??esophagitis &??Farrell's esophagus, who was admitted to [facility] on 08/14/2022 (now on Hospital Day #21) [...] - Continue therapy with PT, OT, and PLAY BACK OPERATOR - Diet pending MBS results milvia Neuro: # Bipolar Disorder - Depakote 300 mg oral liquid per Dobhoff tube q6hr. - Continue Seroquel 100mg nightly - Will check VPA trough level 08/29. - level 25mg/L 08/29 - PLAY BACK OPERATOR to evaluate, Recommend NPO at present - [...] K >4 ?? GI: # GERD c/b Frarell's esophagus & esophagitis # Constipation- resolved # [...] Medicine PGY1 Medicine Team: Jose Juan, Pager #[phone] Date: 09/04/2022 Associated attestation - Tenisha Sandy [...] of two midnights or is on the [facility] inpatient only procedure list (status C) [...] improved with use of wellbutrin. Will continue PLAY BACK OPERATOR and consider trial ofnectar thick with speech. [...] deficiency anemia,??GERD??c/b??esophagitis &??Farrell's esophagus??presenting in transfer from [facility], suspected to be in cardiogenic shock and [...] OT arrival. [facility] ?? States she has a fungal infection. Skin at gavin-area inspected. Pt red in gavin-area and has yunior buttocks. Nurse aware. ?? Supine to sit at EOB under supervision with HOB elevated to 45* for aspiration precautions ?? Independent sitting balance at EOB ?? Donned both slipper socks independently with legs on bed ?? [facility] brought bedside bed for stand pivot transfer. [...] navigate with FWW for [facility] I need to sit. I'm going to fall? Pt sat on commode quickly. ?? Sit to [facility]. Pt immediately sitting out of fear. [...] 2-4 times/wk Total Minutes, Occupational Therapy: 44 ([phone]) Pager: [phone] Alicia Cook OT 09/03/2022 Occupational Therapy Rehabilitation Department * Shashi Young - 09/03/2022 10:36 AM EDT University Librarian Encounter Note Patient Name: Ishan Irving : [id number] MR#: [id number] Admit Date: 08/14/2022 11:11 PM Hospital Day [...] hands. Patient and her expressed appreciation. Follow-up: Accounts Specialist will continue to offer support to patient as needed. Time in Direct Care: Nydia Yougn 09/03/2022 * Nancy Ernst RD - 09/03/2022 8:27 AM EDT Nutrition Progress Note Ishan Irving is a 62 y.o.??female??with h/o bipolar, DM, EtOH, esophagitis, who presented to [facility] 3 days ago after being found unresponsive at home.?Patient found to have likely pneumonia +/- aspiration, newly reduced EF. Reason for Assessment: Follow-up, Tube Feeding Nutrition Recommendations: Enteral Nutrition: Cyclic Peptamen AF at 110ml/hr for 12hrs from [id number] At goal, this will provide: Peptamen AF Total Volume Per Day: 1320 mL Scoops of Protein: 0 Calories per Day: 1584 Protein per Day: 100 g Free Water mL per Day: 1072 % RDI: 106 % Monitor hydration status on above TFs as they are concentrated. Pt may need additional fluids depending on IVFs, med flushes, p.o. Intake, etc. Diet per PLAY BACK OPERATOR Monitor weight to trend Monitor BM. Goal [...] Peptamen AF at 110ml/hr for 12hrs from [id number] Average tube feeding provision over past 3 [...] of this encounter: 69.9 kg (154 lb). Stevens Body Weight (IBW) (kg): 45.45 Usual Body [...] 08/25 r/t liquid tylenol, d/c per this music writer's request as liquid tylenol acts as [...] up while inpatient Nancy Ernst RD Pager #:[phone] * Petty Mccullough SLP - 09/03/2022 8:20 AM EDT Speech Therapy Note Patient Profile:??Ishan Irving is a 62 year old female with a medical history notable for??recent L femoral neck fracture,??bipolar disorder, resolving medication-induced Parkinsonism, insulin-dependent diabetes mellitus,??hx of alcohol use disorder (reported to be in remission for 1.5 years)c/b chronic pancreatitis, iron deficiency anemia,??GERD??c/b??esophagitis &??Farrell's esophagus??presenting in transfer from [facility]??on 08/14/2022, suspected to be in cardiogenic shock and found to be in mixed shock with concern for stress cardiomyopathy.??PLAY BACK OPERATOR following for swallow, cognitive tx. MBS completed [...] Pt was seen today for a follow-up PLAY BACK OPERATOR visit. ??? Oropharyngeal swallow function is reportedly [...] in ongoing cognitive-linguistic evaluation. Plan: Therapy Frequency (PLAY BACK OPERATOR Eval): 3-5 times/wk Pt./family are in agreement with treatment plan. Total Minutes (Speech Language Pathology): 40 Petty Mccullough M.S., [facility]-PLAY BACK OPERATOR Inpatient Speech-Pathology Pager: [phone] * Irwin Jones MD - 09/03/2022 7:13 AM EDT Images from the original note were not included. Inpatient Hospital Medicine Progress Note 09/03/2022 Patient Name: ISHAN IRVING Date of : 1960 Age: 62 y.o. Hospital Admit Date: 08/14/2022 Hospital Day: 20 Inpatient Attending: Tenisha Sandy MD PCP: Chris Stanley APRN ([phone]) No chief complaint on file. ID: Ishan Irving is a 62 y.o. 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.5 years) c/b chronic pancreatitis, iron deficiency anemia, ??GERD??c/b??esophagitis &??Farrell's esophagus, who was admitted to [facility] on 08/14/2022 (now on Hospital Day #20), and transferred to Hospital Medicine team from Cardiology on 08/30 for mixed shock with concern for stress cardiomyopathy (Takotsubo Cardiomyopathy). 24 HOUR EVENTS & SUBJECTIVE: Yesterday: - PLAY BACK OPERATOR evaluated, NPO, ice chips for pleasure recommended - Palliative Care consulted and met with patient - PT met with patient, recommend acute rehab versus swing bed when medically ready for discharge - Psych met with patient, recommended once daily dosing of Bupropion IR - GI consulted and recommends patient continue working w/PLAY BACK OPERATOR, can consider PEG if inadequate improvement Overnight: [...] Gas): No results found for: PHART, PO2ART, BLO7BXL, DDH7PQN VBG (Venous Blood Gas): No results for input(s): PHVEN, GVJ4GSR, PO2VEN, HWM2GJS, BEVEN, YVY3TUZ in the last 72 hours. EKG: Lab [...] Date/Time Lower Respiratory Culture Bronchial Alveolar Lavage [[id number]] Collected: 08/21/221649 Lab Status: Final result Specimen: Bronchial Alveolar Lavage Updated: 08/23/22 0741 Lower Respiratory Culture Rare mixed bacterial morphotypes suggestive of normal upper respiratory wiley Gram Stain -- Few Neutrophils seen No squamous epithelial cells seen No microorganisms seen. Fungus Culture & Calc Stain Bronchial Alveolar Lavage [[id number]] (Abnormal) Collected: 08/21/221649 Lab Status: Preliminary result Specimen: Bronchial Alveolar Lavage Updated: 08/24/22 145 AFB culture Bronchial Alveolar Lavage [[id number]] Collected: 08/21/221649 Lab Status: Preliminary result Specimen: Bronchial Alveolar Lavage Updated: 08/24/22 221 Acid Fast Bacilli Culture -- No Acid Fast Bacilli isolated to date If active tuberculosis is suspected, the patient should be on [employer]. Call Infection Prevention for assistance if needed. Acid Fast Stain No Acid Fast Bacilli seen Fungus culture [[id number]] (Abnormal) Collected: 08/21/221649 Lab Status: Preliminary result Specimen: Bronchial Alveolar Lavage Updated: 08/24/221451 Fungus Culture Rare Jacky albicans Calcofluor White Stain [[id number]] Collected: 08/21/221649 Lab Status: Final result Specimen: Bronchial Alveolar Lavage Updated: 08/21/222015 Calcofluor Stain Calcofluor White Preparation: Negative Lower Respiratory Culture Bronchial Alveolar Lavage [[id number]] Collected: 08/21/22 164 Lab Status: Final result Specimen: Bronchial Alveolar Lavage Updated: 08/23/22 0741 Lower Respiratory Culture Rare mixed bacterial morphotypes suggestive of normal upper respiratory wiley Gram Stain -- Moderate Neutrophils seen No squamous epithelial cells seen No microorganisms seen. Fungus Culture & Calc Stain Bronchial Alveolar Lavage [[id number]] (Abnormal) Collected: 08/21/221644 Lab Status: Preliminary result Specimen: Bronchial Alveolar Lavage Updated: 08/24/22 145 AFB culture Bronchial Alveolar Lavage [[id number]] Collected: 08/21/221644 Lab Status: Preliminary result Specimen: Bronchial Alveolar Lavage Updated: 08/24/22 222 Acid Fast Bacilli Culture -- No Acid Fast Bacilli isolated to date If active tuberculosis is suspected, the patient should be on [employer]. Call Infection Prevention for assistance if needed. Acid Fast Stain No Acid Fast Bacilli seen Fungus culture [[id number]] (Abnormal) Collected: 08/21/221644 Lab Status: Preliminary result Specimen: Bronchial Alveolar Lavage Updated: 08/24/22 1453 Fungus Culture Rare Jacky albicans Calcofluor White Stain [[id number]] Collected: 08/21/221644 Lab Status: Final result Specimen: Bronchial Alveolar Lavage Updated: 08/21/22 2017 Calcofluor Stain Calcofluor White Preparation: Negative Blood culture [[id number]] Collected: 08/19/22 1720 Lab Status: Final result Specimen: Blood Updated: 08/24/22 2301 Blood Culture No growth at 5 days. Lower Respiratory Culture Sputum Induced [[id number]] Collected: 08/19/22 1451 Lab Status: Final result Specimen: Sputum Induced Updated: 08/21/22 0948 Lower Respiratory Culture Rare mixed bacterial morphotypes suggestive of normal upper respiratory wiley Gram Stain -- Many Neutrophils seen Few squamous epithelial cells seen No microorganisms seen. Blood culture [[id number]] Collected: 08/19/22 1330 Lab Status: Final result Specimen: Blood Updated: 08/24/22 1501 Blood Culture No growth at 5 days. Legionella Urinary Antigen [[id number]] Collected: 08/18/22 1013 Lab Status: Final result [...] Catheter Urine; Other; sepsis, bacteria on UA [[id number]] Collected: 08/15/22 1225 Lab Status: Final result Specimen: Indwelling Catheter Urine Updated: 08/16/22 0804 Urine Culture 1,000-9,000 cfu/ml Insignificant growth COVID-19 PCR [[id number]] Collected: 08/15/22 1150 Lab Status: Final result [...] using the Simplexa COVID-19 Direct Assay by Wistia as authorized by the FDA issued Emergency [...] Department of Pathology and Laboratory Medicine at [facility], certified under the Clinical Laboratory Improvement Amendments [...] fact sheets at the following FDA website: https://www.fda.gov/medical-devices/ugxuykncrqe-yvcvkre-2593-qzelo-28-dmrbdppcz- try-bnchngeujuzyye-fahtqkx-devices/aapgf-msrnofklgnm-wxkc SARS-CoV-2 Source ECONOMICS FACULTY MEMBER Swab Lower Respiratory Culture Sputum Induced [[id number]] Collected: 08/15/22 0740 Lab Status: Final result Specimen: Sputum Induced Updated: 08/17/22 1015 Lower Respiratory Culture Rare normal upper respiratory wiley Gram Stain -- Many Neutrophils Few squamous epithelial cells Rare mixed bacterial morphotypes suggestive of normal upper respiratory wiley Blood culture [[id number]] Collected: 08/15/22 0110 Lab Status: Final result Specimen: Blood Updated: 08/20/22 0701 Blood Culture No growth at 5 days. MRSA PCR Screen ([facility]/CGP/APD/NL) [[id number]] Collected: 08/15/22 0050 Lab Status: Final result Specimen: Nasopharyngeal Swab Updated: 08/17/22 1419 MRSA Result Negative MRSA Interp -- Methicillin-resistant Staphylococcus aureus (MRSA) is NOT DETECTED The MRSA target DNA sequences (mec and SCC) were not detected within the acceptable ranges using the Xpert MRSA NxG on the GeneXpert Dx System ([employer]). This suggests the absence of MRSA in the patient specimen submitted for testing. This test is cleared by the U.S. Food and Drug Administration for clinical use and its performance characteristics have been verified by the [facility] at [facility]. This result does not rule out the presence of any other organisms. Rare false negative results may occur if MRSA is present at low concentrations with much higher concentrations of other organisms including MRSE or S. aureus with an empty SCC cassette. Comment: [VERIFIED DATE]08.17.22 Verified By:Shannon Smiley (Electronic Signature) Blood culture [[id number]] Collected: 08/14/22 2358 Lab Status: Final result Specimen: Blood Updated: [...] who have questions please contact the health animal care taker that requested your imaging first. Electronically signed by: Davi Terry MD, [facility] ([phone]), at 08/15/2022 3:53 AM XR Abdomen 1 view (Generic) (Exam [...] who have questions please contact the health animal care taker that requested your imaging first. Electronically signed by: Liliane Adams MD, [facility] ([phone]), at 08/15/2022 9:05 AM XR Chest One [...] who have questions please contact the health animal care taker that requested your imaging first. Electronically signed by: Davi Terry MD, [facility] ([phone]), at 08/15/2022 3:55 AM XR Abdomen 1 [...] who have questions please contact the health animal care taker that requested your imaging first. Electronically signed by: Davi Terry MD, [facility] ([phone]), at 08/15/2022 6:41 AM XR Chest One [...] who have questions please contact the health animal care taker that requested your imaging first. Electronically signed by: Alfonso Adams MD, [facility] ([phone]), at 08/16/2022 10:[address] Head wo [...] who have questions please contact the health animal care taker that requested your imaging first. Electronically signed by: Moustapha Correa MD, [facility] ([phone]), at 08/16/2022 11:19 PM XR Abdomen 1 [...] who have questions please contact the health animal care taker that requested your imaging first. Head wo Contrast (Generic) (Exam End: 08/18/2022 3:14 PM) Impression No acute intracranial process. Thank you for letting us participate in the care of this patient. If you are a health care provider and have any questions regarding this report, please contact the number below. For patients who have questions please contact the health animal care taker that requested your imaging first. Electronically signed by: Antonio Jordan MD, [facility] ([phone]), at 08/18/2022 3:18 PM XR Chest One [...] who have questions please contact the health animal care taker that requested your imaging first. Electronically signed by: Alan De Guzman MD, [facility] ([phone]), at 08/19/2022 3:14 PM MRI Brain wo Contrast (Exam End: 08/19/2022 10:15 PM) Impression No acute infarction, mass or mass effect. Thank you for letting us participate in the care of this patient. If you are a health care provider and have any questions regarding this report, please contact the number below. For patients who have questions please contact the health animal care taker that requested your imaging first. Electronically signed by: Jagdeep Lee MD, [facility] ([phone]), at 08/20/2022 3:34 AM XR Chest for [...] who have questions please contact the health animal care taker that requested your imaging first. Electronically signed by: Alan De Guzman MD, [facility] ([phone]), at 08/19/2022 4:[address] Hip w [...] who have questions please contact the health animal care taker that requested your imaging first. Electronically signed by: Aicha Chowdhury MD, [facility] ([phone]), at 08/21/2022 9:[address] Chest w [...] who have questions please contact the health animal care taker that requested your imaging first. Electronically signed by: Jagdeep Lee MD, [facility] ([phone]), at 08/21/2022 6:56 AM XR Hip 2-3 Views Left (Exam End: 08/22/2022 12:19 AM) Impression No radiographic evidence of infection. Thank you for letting us participate in the care of this patient. If you are a health care provider and have any questions regarding this report, please contact the number below. For patients who have questions please contact the health animal care taker that requested your imaging first. Electronically signed by: Viktor Cervantes MD, [facility] ([phone]), at 08/22/2022 12:43 PM XR Pelvis (Generic) (Exam End: 08/22/2022 12:19 AM) Impression No radiographic evidence of infection status post left hip ORIF. Thank you for letting us participate in the care of this patient. If you are a health care provider and have any questions regarding this report, please contact the number below. For patients who have questions please contact the health animal care taker that requested your imaging first. Electronically signed by: Richard Billings MD, [facility] ([phone]), at 08/22/2022 10:[address] Angiogram Coronary [...] who have questions please contact the health animal care taker that requested your imaging first. Electronically signed by: Arlette Mays MD, [facility] ([phone]), at 08/27/2022 11:[address] Chest wo Contrast (Generic) (Exam End: 08/27/2022 8:58 AM) Impression Stable findings of multifocal pneumonia. No interval abnormality. Thank you for letting us participate in the care of this patient. If you are a health care provider and have any questions regarding this report, please contact the number below. For patients who have questions please contact the health animal care taker that requested your imaging first. Electronically signed by: MINH QUIROGA MD, [facility] ([phone]), at 08/27/2022 10:48 AM XR Fluoro Barium [...] who have questions please contact the health animal care taker that requested your imaging first. Electronically signed by: Aron Billings MD, [facility] ([phone]), at 08/31/2022 12:02 PM Medications: Scheduled: ??? [...] anemia,??GERD??c/b??esophagitis &??Farrell's esophagus, who was admitted to [facility] on 08/14/2022 (now on Hospital Day #20) [...] for a percutaneous feeding tube, discussed with PLAY BACK OPERATOR and plan for MBS tomorrow, will remove dobhoff prior to minimize other factors worsening dysphagia. Today's plan: - Discuss wellbutrin dose with Yg - Consider dose of IV iron for additional supplementation to low stores - Ongoing therapy with PT, OT, and PLAY BACK OPERATOR - Venofer x 1 to supplement oral iron for iron deficiency anemia milvia Neuro: # Bipolar Disorder - Depakote 300 mg oral liquid per Dobhoff tube q6hr. - Continue Seroquel 100mg nightly - Will check VPA trough level 08/29. - level 25mg/L 08/29 - PLAY BACK OPERATOR to evaluate, Recommend NPO at present - [...] Medicine PGY1 Medicine Team: Jose Juan, Pager #[phone] Date: 09/03/2022 Associated attestation - Tenisha Sandy [...] of two midnights or is on the [facility] inpatient only procedure list (status C) due to: acute metabolic encephalopathy,management of nstemi/stress cardiomyopathy, s/p treatment of sepsis. Also management of IV fluids as patient is not able to tolerate any PO intake. Awaiting MBS. * Feroz Portillo, PILE DRIVER - 09/02/2022 3:10 PM EDT Physical Therapy [...] deficiency anemia,??GERD??c/b??esophagitis &??Farrell's esophagus??presenting in transfer from [facility], suspected to be in cardiogenic shock and [...] TE-F x 3 FEROZ PORTILLO PTA Pager: [phone] Physical Therapy Inpatient Rehabilitation Department * Tanya Figueroa, PLAY BACK OPERATOR - 09/02/2022 2:09 PM EDT Speech Therapy Note Patient Profile:??Ishan Irving is a 62 year old female with a medical history notable for??recent L femoral neck fracture,??bipolar disorder, resolving medication-induced Parkinsonism, insulin-dependent diabetes mellitus,??hx of alcohol use disorder (reported to be in remission for 1.5 years)c/b chronic pancreatitis, iron deficiency anemia,??GERD??c/b??esophagitis &??Farrell's esophagus??presenting in transfer from [facility]??on 08/14/2022, suspected to be in cardiogenic shock and found to be in mixed shock with concern for stress cardiomyopathy.??PLAY BACK OPERATOR following for swallow, cognitive tx. MBS completed 08/31/22 noting moderate-severe oropharyngeal dysphagia. Lines/Drains: DHT(08/17/22), PICC Precautions: Fall risk, Aspiration risk, Delirium and High risk skin breakdown Continuous Interventions: ??? tube feeding diet 110 mL/hr at 09/02/22 1200 Interval History: No significant changes. Per Resident notes, - PT evaluated and recommends swing bed - GI consulted and recommends patient continue working w/PLAY BACK OPERATOR, can consider PEG if inadequate improvement Subjective: [...] puzzle, joining dot drawings. ?? Attempts to united [place] words using word soto puzzles - denies any assistance form PLAY BACK OPERATOR during this task. Searches 9 words independently [...] nutrition/hydration to provide nutrition during rehab course. PLAY BACK OPERATOR will f/u for ongoing swallow and cognitive intervention. ?? Barium swallow (esophagram) will be helpful at later date (due to hx of Farrell's esophagus/GERD), however Pt is at high potential for aspiration during study d/t positioning requirements for this test. Likely will need a repeat MBS prior to ordering of barium swallow. ?? Pt would benefit from skilled PLAY BACK OPERATOR services to maximize swallow function and safety [...] in ongoing cognitive-linguistic evaluation. Plan: Therapy Frequency (PLAY BACK OPERATOR Eval): 2-4 times/wk Pt./family are in agreement with treatment plan. Total Minutes (Speech Language Pathology): 24 Thank you for this consult with this patient. Please feel free to page me with any questions or concerns. Tanya Figueroa MS, PLAY BACK OPERATOR-CF Pager #[phone] Speech Language Pathology Inpatient Rehabilitation Medicine * Ghulam Torres MD - 09/02/2022 12:10 PM EDT Palliative super quick note Ran to catch antonio at bedside with Ishan. Introduced myself and palliative. Family welcoming to the support and visit. Antonio has to get home to [facility] to take care of their house, their [...] patient and to make a call to [place] [employer] to submit claim for health related reasons. Patient gave verbal permission for me to speak with unemployment and we proceeded to walk through the process together. Patients will provide this music writer with documentation for the physician to [...] Tenisha Sandy MD PCP: Chris Stanley APRN ([phone]) No chief complaint on file. ID: Ishan Irving is a 62 y.o. 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.5 years) c/b chronic pancreatitis, iron deficiency anemia, ??GERD??c/b??esophagitis &??Farrell's esophagus, who was admitted to [facility] on 08/14/2022 (now on Hospital Day #19), and transferred to Hospital Medicine team from Cardiology on 08/30 for mixed shock with concern for stress cardiomyopathy (Takotsubo Cardiomyopathy). 24 HOUR EVENTS & SUBJECTIVE: Yesterday: - Psychiatry consult, recommend starting Wellbutrin for presumed depression versus hypoactive delirium - PT evaluated and recommends swing bed - GI consulted and recommends patient continue working w/PLAY BACK OPERATOR, can consider PEG if inadequate improvement Overnight: [...] Gas): No results found for: PHART, PO2ART, CCV8THJ, ORO9DBV VBG (Venous Blood Gas): No results for input(s): PHVEN, VOY9KOP, PO2VEN, HAS1OBM, BEVEN, CBO5YXU in the last 72 hours. EKG: Lab [...] Date/Time Lower Respiratory Culture Bronchial Alveolar Lavage [[id number]] Collected: 08/21/221649 Lab Status: Final result Specimen: Bronchial Alveolar Lavage Updated: 08/23/22740 Lower Respiratory Culture Rare mixed bacterial morphotypes suggestive of normal upper respiratory wiley Gram Stain -- Few Neutrophils seen No squamous epithelial cells seen No microorganisms seen. Fungus Culture & Calc Stain Bronchial Alveolar Lavage [[id number]] (Abnormal) Collected: 08/21/221649 Lab Status: Preliminary result Specimen: Bronchial Alveolar Lavage Updated: 08/24/22 145 AFB culture Bronchial Alveolar Lavage [[id number]] Collected: 08/21/221649 Lab Status: Preliminary result Specimen: Bronchial Alveolar Lavage Updated: 08/24/222218 Acid Fast Bacilli Culture -- No Acid Fast Bacilli isolated to date If active tuberculosis is suspected, the patient should be on [employer] PRECAUTIONS. Call Infection Prevention for assistance if needed. Acid Fast Stain No Acid Fast Bacilli seen Fungus culture [[id number]] (Abnormal) Collected: 08/21/221649 Lab Status: Preliminary result Specimen: Bronchial Alveolar Lavage Updated: 08/24/221451 Fungus Culture Rare Jacky albicans Calcofluor White Stain [[id number]] Collected: 08/21/221649 Lab Status: Final result Specimen: Bronchial Alveolar Lavage Updated: 08/21/222015 Calcofluor Stain Calcofluor White Preparation: Negative Lower Respiratory Culture Bronchial Alveolar Lavage [[id number]] Collected: 08/21/221644 Lab Status: Final result Specimen: Bronchial Alveolar Lavage Updated: 08/23/22740 Lower Respiratory Culture Rare mixed bacterial morphotypes suggestive of normal upper respiratory wiley Gram Stain -- Moderate Neutrophils seen No squamous epithelial cells seen No microorganisms seen. Fungus Culture & Calc Stain Bronchial Alveolar Lavage [[id number]] (Abnormal) Collected: 08/21/221644 Lab Status: Preliminary result Specimen: Bronchial Alveolar Lavage Updated: 08/24/22 1453 AFB culture Bronchial Alveolar Lavage [[id number]] Collected: 08/21/221644 Lab Status: Preliminary result Specimen: Bronchial Alveolar Lavage Updated: 08/24/22 2221 Acid Fast Bacilli Culture -- No Acid Fast Bacilli isolated to date If active tuberculosis is suspected, the patient should be on [employer] PRECAUTIONS. Call Infection Prevention for assistance if needed. Acid Fast Stain No Acid Fast Bacilli seen Fungus culture [[id number]] (Abnormal) Collected: 08/21/221644 Lab Status: Preliminary result Specimen: Bronchial Alveolar Lavage Updated: 08/24/22 145 Fungus Culture Rare Jacky albicans Calcofluor White Stain [[id number]] Collected: 08/21/221644 Lab Status: Final result Specimen: Bronchial Alveolar Lavage Updated: 08/21/22 2017 Calcofluor Stain Calcofluor White Preparation: Negative Blood culture [[id number]] Collected: 08/19/22 1720 Lab Status: Final result Specimen: Blood Updated: 08/24/22 2301 Blood Culture No growth at 5 days. Lower Respiratory Culture Sputum Induced [[id number]] Collected: 08/19/22 1451 Lab Status: Final result Specimen: Sputum Induced Updated: 08/21/22 0948 Lower Respiratory Culture Rare mixed bacterial morphotypes suggestive of normal upper respiratory wiley Gram Stain -- Many Neutrophils seen Few squamous epithelial cells seen No microorganisms seen. Blood culture [[id number]] Collected: 08/19/22 1330 Lab Status: Final result Specimen: Blood Updated: 08/24/22 1501 Blood Culture No growth at 5 days. Legionella Urinary Antigen [[id number]] Collected: 08/18/22 1013 Lab Status: Final result [...] Catheter Urine; Other; sepsis, bacteria on UA [[id number]] Collected: 08/15/22 1225 Lab Status: Final result Specimen: Indwelling Catheter Urine Updated: 08/16/22 0804 Urine Culture 1,000-9,000 cfu/ml Insignificant growth COVID-19 PCR [[id number]] Collected: 08/15/22 1150 Lab Status: Final result [...] using the Simplexa COVID-19 Direct Assay by [employer] as authorized by the FDA issued Emergency [...] Department of Pathology and Laboratory Medicine at [facility], certified under the Clinical Laboratory Improvement Amendments [...] fact sheets at the following FDA website: https://www.fda.gov/medical-devices/qkxzkixnjkm-lzpbiqa-7104-seuzn-06-sxvvgbhfe- xjr-ybovbaidakkehz-akxmrfw-devices/gjhfe-dklwdiiyvej-xeuj SARS-CoV-2 Source ECONOMICS FACULTY MEMBER Swab Lower Respiratory Culture Sputum Induced [[id number]] Collected: 08/15/22 0740 Lab Status: Final result Specimen: Sputum Induced Updated: 08/17/22 1015 Lower Respiratory Culture Rare normal upper respiratory wiley Gram Stain -- Many Neutrophils Few squamous epithelial cells Rare mixed bacterial morphotypes suggestive of normal upper respiratory wiley Blood culture [[id number]] Collected: 08/15/22 0110 Lab Status: Final result Specimen: Blood Updated: 08/20/22 0701 Blood Culture No growth at 5 days. MRSA PCR Screen ([facility]/CGP/APD/NLH) [[id number]] Collected: 08/15/22 0050 Lab Status: Final result Specimen: Nasopharyngeal Swab Updated: 08/17/22 1419 MRSA Result Negative MRSA Interp -- Methicillin-resistant Staphylococcus aureus (MRSA) is NOT DETECTED The MRSA target DNA sequences (mec and SCC) were not detected within the acceptable ranges using the Xpert MRSA NxG on the GeneXpert Dx System ([employer]). This suggests the absence of MRSA in the patient specimen submitted for testing. This test is cleared by the U.S. Food and Drug Administration for clinical use and its performance characteristics have been verified by the [facility] at [facility]. This result does not rule out the presence of any other organisms. Rare false negative results may occur if MRSA is present at low concentrations with much higher concentrations of other organisms including MRSE or S. aureus with an empty SCC cassette. Comment: [VERIFIED DATE]08.17.22 Verified By:Shannon Smiley (Electronic Signature) Blood culture [[id number]] Collected: 08/14/22 6172 Lab Status: Final result Specimen: Blood Updated: [...] who have questions please contact the health animal care taker that requested your imaging first. Electronically signed by: Davi Terry MD, [facility] ([phone]), at 08/15/2022 3:53 AM XR Abdomen 1 view (Generic) (Exam [...] who have questions please contact the health animal care taker that requested your imaging first. Electronically signed by: Liliane Adams MD, [facility] ([phone]), at 08/15/2022 9:05 AM XR Chest One [...] who have questions please contact the health animal care taker that requested your imaging first. Electronically signed by: Davi Terry MD, [facility] ([phone]), at 08/15/2022 3:55 AM XR Abdomen 1 [...] who have questions please contact the health animal care taker that requested your imaging first. Electronically signed by: Davi Terry MD, [facility] ([phone]), at 08/15/2022 6:41 AM XR Chest One [...] who have questions please contact the health animal care taker that requested your imaging first. Electronically signed by: Alfonso Adams MD, [facility] ([phone]), at 08/16/2022 10:[address] Head wo [...] who have questions please contact the health animal care taker that requested your imaging first. Electronically signed by: Moustapha Correa MD, [facility] ([phone]), at 08/16/2022 11:19 PM XR Abdomen 1 [...] who have questions please contact the health animal care taker that requested your imaging first. Head wo Contrast (Generic) (Exam End: 08/18/2022 3:14 PM) Impression No acute intracranial process. Thank you for letting us participate in the care of this patient. If you are a health care provider and have any questions regarding this report, please contact the number below. For patients who have questions please contact the health animal care taker that requested your imaging first. Electronically signed by: Antonio Jordan MD, [facility] ([phone]), at 08/18/2022 3:18 PM XR Chest One [...] who have questions please contact the health animal care taker that requested your imaging first. Electronically signed by: Alan De Guzman MD, [facility] ([phone]), at 08/19/2022 3:14 PM MRI Brain wo Contrast (Exam End: 08/19/2022 10:15 PM) Impression No acute infarction, mass or mass effect. Thank you for letting us participate in the care of this patient. If you are a health care provider and have any questions regarding this report, please contact the number below. For patients who have questions please contact the health animal care taker that requested your imaging first. Electronically signed by: Jagdeep Lee MD, [facility] ([phone]), at 08/20/2022 3:34 AM XR Chest for [...] who have questions please contact the health animal care taker that requested your imaging first. Electronically signed by: Alan De Guzman MD, [facility] ([phone]), at 08/19/2022 4:[address] Hip w [...] who have questions please contact the health animal care taker that requested your imaging first. Electronically signed by: Aicha Chowdhury MD, [facility] ([phone]), at 08/21/2022 9:[address] Chest w [...] who have questions please contact the health animal care taker that requested your imaging first. Electronically signed by: Jagdeep Lee MD, [facility] ([phone]), at 08/21/2022 6:56 AM XR Hip 2-3 Views Left (Exam End: 08/22/2022 12:19 AM) Impression No radiographic evidence of infection. Thank you for letting us participate in the care of this patient. If you are a health care provider and have any questions regarding this report, please contact the number below. For patients who have questions please contact the health animal care taker that requested your imaging first. Electronically signed by: Viktor Cervantes MD, [facility] ([phone]), at 08/22/2022 12:43 PM XR Pelvis (Generic) (Exam End: 08/22/2022 12:19 AM) Impression No radiographic evidence of infection status post left hip ORIF. Thank you for letting us participate in the care of this patient. If you are a health care provider and have any questions regarding this report, please contact the number below. For patients who have questions please contact the health animal care taker that requested your imaging first. Electronically signed by: Richard Billings MD, [facility] ([phone]), at 08/22/2022 10:[address] Angiogram Coronary [...] who have questions please contact the health animal care taker that requested your imaging first. Electronically signed by: Arlette Mays MD, [facility] ([phone]), at 08/27/2022 11:[address] Chest wo Contrast (Generic) (Exam End: 08/27/2022 8:58 AM) Impression Stable findings of multifocal pneumonia. No interval abnormality. Thank you for letting us participate in the care of this patient. If you are a health care provider and have any questions regarding this report, please contact the number below. For patients who have questions please contact the health animal care taker that requested your imaging first. Electronically signed by: MINH QUIROGA MD, [facility] ([phone]), at 08/27/2022 10:48 AM XR Fluoro Barium [...] who have questions please contact the health animal care taker that requested your imaging first. Electronically signed by: Aron Billings MD, [facility] ([phone]), at 08/31/2022 12:02 PM Medications: Scheduled: ??? [...] anemia,??GERD??c/b??esophagitis &??Farrell's esophagus, who was admitted to [facility] on 08/14/2022 (now on Hospital Day #19) [...] with Dr. Marquis in June. Anticipate further PLAY BACK OPERATOR intervention with hope that patient is able to discharge with PO nutrition, percutaneous G-tube remains a possibility. Patient's profound psychomotor slowing raises some concern for catatonia. May consider trial of benzodiazepines if response is not seen to wellbutrin. Today's plan: - Start wellbutrin today - Ongoing therapy with PT, OT, and PLAY BACK OPERATOR - Replete mag w/2gm for goal >1 - reticulocyte count (further interrogation of microcytic anemia) Neuro: # Bipolar Disorder - Depakote 300 mg oral liquid per Dobhoff tube q6hr. - Continue Seroquel 100mg nightly - Will check VPA trough level 08/29. - level 25mg/L 08/29 - PLAY BACK OPERATOR to evaluate, Recommend NPO at present - [...] Medicine PGY1 Medicine Team: Jose Juan, Pager #[phone] Date: 09/02/2022 Associated attestation - Tenisha Sandy [...] of two midnights or is on the [facility] inpatient only procedure list (status C) due to: acute metabolic encephalopathy,management of nstemi/stress cardiomyopathy, s/p treatment of sepsis. Also management of IV fluids as patient is not able to tolerate any PO intake. * Shashi Young - 09/01/2022 5:29 PM EDT University Librarian Encounter Note Patient Name: Ishan Irving : [id number] MR#: [id number] Admit Date: 08/14/2022 11:11 PM Hospital Day [...] 15 Shashi Young 09/01/2022 * Petty Mccullough, PLAY BACK OPERATOR - 09/01/2022 1:56 PM EDT Speech Therapy Note Patient Profile:??Ishan Irving is a 62 year old female with a medical history notable for??recent L femoral neck fracture,??bipolar disorder, resolving medication-induced Parkinsonism, insulin-dependent diabetes mellitus,??hx of alcohol use disorder (reported to be in remission for 1.5 years)c/b chronic pancreatitis, iron deficiency anemia,??GERD??c/b??esophagitis &??Farrell's esophagus??presenting in transfer from [facility]??on 08/14/2022, suspected to be in cardiogenic shock and found to be in mixed shock with concern for stress cardiomyopathy.??PLAY BACK OPERATOR following for swallow, cognitive tx. MBS completed [...] nutrition/hydration to provide nutrition during rehab course. PLAY BACK OPERATOR will f/u for ongoing swallow and cognitive intervention. ?? Barium swallow (esophagram) will be helpful at later date (due to hx of Farrell's esophagus/GERD), however Pt is at high potential for aspiration during study d/t positioning requirements for this test. Likely will need a repeat MBS prior to ordering of barium swallow. ?? Pt would benefit from skilled PLAY BACK OPERATOR services to maximize swallow function and safety [...] in ongoing cognitive-linguistic evaluation. Plan: Therapy Frequency (PLAY BACK OPERATOR Eval): 2-4 times/wk Pt./family are in agreement with treatment plan. Total Minutes (Speech Language Pathology): 26 Petty Mccullough M.S., [facility]-PLAY BACK OPERATOR Inpatient Speech-Pathology Pager: [phone] * Alicia Cook OT - 09/01/2022 1:38 [...] deficiency anemia,??GERD??c/b??esophagitis &??Farrell's esophagus??presenting in transfer from [facility], suspected to be in cardiogenic shock and [...] determined Anticipated Discharge Disposition: acute rehabilitation facility, group home facility Daily schedule / Staff Recommendations: ? [...] Minutes, Occupational Therapy: 38 (2 TA) Pager: [phone] Alicia Cook, OT 09/01/2022 Occupational Therapy Rehabilitation [...] deficiency anemia,??GERD??c/b??esophagitis &??Farrell's esophagus??presenting in transfer from [facility], suspected to be in cardiogenic shock and [...] (seeb with OT) GENE YOUNG, PT Pager: [phone] Physical Therapy Inpatient Rehabilitation Department * Elsie Erickson, SUPERINTENDENT COLLIERY - 09/01/2022 7:30 AM EDT Follow Up [...] deficiency anemia,??GERD??c/b??esophagitis &??Farrell's esophagus??presenting in transfer from [facility], suspected to be in cardiogenic shock and [...] goal of 98mls/hr Monitoring:??Q4 Elsie Erickson APRN [facility] Endocrinology Diabetes Management Pager [phone] * Irwin Jones MD - 09/01/2022 7:19 AM EDT Images from the original note were not included. Inpatient Hospital Medicine Progress Note 09/01/2022 Patient Name: ISHAN IRVING Date of : 1960 Age: 62 y.o. Hospital Admit Date: 08/14/2022 Hospital Day: 18 Inpatient Attending: Tenisha Sandy MD PCP: Chris Stanley APRN ([phone]) No chief complaint on file. ID: Ishan Irving is a 62 y.o. 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.5 years) c/b chronic pancreatitis, iron deficiency anemia, ??GERD??c/b??esophagitis &??Farrell's esophagus, who was admitted to [facility] on 08/14/2022 (now on Hospital Day #18), and transferred to Hospital Medicine team from Cardiology on 08/30 for mixed shock with concern for stress cardiomyopathy (Takotsubo Cardiomyopathy). 24 HOUR EVENTS & SUBJECTIVE: Yesterday: - MBS performed, PLAY BACK OPERATOR recommend NPO with ice chips for pleasure [...] Gas): No results found for: PHART, PO2ART, SIN6VNU, ATM3VCX VBG (Venous Blood Gas): No results for input(s): PHVEN, UMB0NYM, PO2VEN, HLA6JCV, BEVEN, ZRI0CFI in the last 72 hours. EKG: Lab [...] Date/Time Lower Respiratory Culture Bronchial Alveolar Lavage [[id number]] Collected: 08/21/22 1650 Lab Status: Final result Specimen: Bronchial Alveolar Lavage Updated: 08/23/22 0741 Lower Respiratory Culture Rare mixed bacterial morphotypes suggestive of normal upper respiratory wiley Gram Stain -- Few Neutrophils seen No squamous epithelial cells seen No microorganisms seen. Fungus Culture & Calc Stain Bronchial Alveolar Lavage [[id number]] (Abnormal) Collected: 08/21/221649 Lab Status: Preliminary result Specimen: Bronchial Alveolar Lavage Updated: 08/24/22 1452 AFB culture Bronchial Alveolar Lavage [[id number]] Collected: 08/21/221649 Lab Status: Preliminary result Specimen: Bronchial Alveolar Lavage Updated: 08/24/22 2219 Acid Fast Bacilli Culture -- No Acid Fast Bacilli isolated to date If active tuberculosis is suspected, the patient should be on AIRBORNE PRECAUTIONS. Call Infection Prevention for assistance if needed. Acid Fast Stain No Acid Fast Bacilli seen Fungus culture [[id number]] (Abnormal) Collected: 08/21/221649 Lab Status: Preliminary result Specimen: Bronchial Alveolar Lavage Updated: 08/24/22 145 Fungus Culture Rare Jacky albicans Calcofluor White Stain [[id number]] Collected: 08/21/221649 Lab Status: Final result Specimen: Bronchial Alveolar Lavage Updated: 08/21/222015 Calcofluor Stain Calcofluor White Preparation: Negative Lower Respiratory Culture Bronchial Alveolar Lavage [[id number]] Collected: 08/21/221644 Lab Status: Final result Specimen: Bronchial Alveolar Lavage Updated: 08/23/22 0741 Lower Respiratory Culture Rare mixed bacterial morphotypes suggestive of normal upper respiratory wiley Gram Stain -- Moderate Neutrophils seen No squamous epithelial cells seen No microorganisms seen. Fungus Culture & Calc Stain Bronchial Alveolar Lavage [[id number]] (Abnormal) Collected: 08/21/221644 Lab Status: Preliminary result Specimen: Bronchial Alveolar Lavage Updated: 08/24/22 1453 AFB culture Bronchial Alveolar Lavage [[id number]] Collected: 08/21/221644 Lab Status: Preliminary result Specimen: Bronchial Alveolar Lavage Updated: 08/24/22 2221 Acid Fast Bacilli Culture -- No Acid Fast Bacilli isolated to date If active tuberculosis is suspected, the patient should be on AIRBORNE PRECAUTIONS. Call Infection Prevention for assistance if needed. Acid Fast Stain No Acid Fast Bacilli seen Fungus culture [[id number]] (Abnormal) Collected: 08/21/221644 Lab Status: Preliminary result Specimen: Bronchial Alveolar Lavage Updated: 08/24/22 145 Fungus Culture Rare Jacky albicans Calcofluor White Stain [[id number]] Collected: 08/21/221644 Lab Status: Final result Specimen: Bronchial Alveolar Lavage Updated: 08/21/22 2017 Calcofluor Stain Calcofluor White Preparation: Negative Blood culture [[id number]] Collected: 08/19/22 1720 Lab Status: Final result Specimen: Blood Updated: 08/24/22 2301 Blood Culture No growth at 5 days. Lower Respiratory Culture Sputum Induced [[id number]] Collected: 08/19/22 1451 Lab Status: Final result Specimen: Sputum Induced Updated: 08/21/22 0948 Lower Respiratory Culture Rare mixed bacterial morphotypes suggestive of normal upper respiratory wiley Gram Stain -- Many Neutrophils seen Few squamous epithelial cells seen No microorganisms seen. Blood culture [[id number]] Collected: 08/19/22 1330 Lab Status: Final result Specimen: Blood Updated: 08/24/22 1501 Blood Culture No growth at 5 days. Legionella Urinary Antigen [[id number]] Collected: 08/18/22 1013 Lab Status: Final result [...] Catheter Urine; Other; sepsis, bacteria on UA [[id number]] Collected: 08/15/22 1225 Lab Status: Final result Specimen: Indwelling Catheter Urine Updated: 08/16/22 0804 Urine Culture 1,000-9,000 cfu/ml Insignificant growth COVID-19 PCR [[id number]] Collected: 08/15/22 1150 Lab Status: Final result [...] using the Simplexa COVID-19 Direct Assay by Wistia as authorized by the FDA issued Emergency [...] Department of Pathology and Laboratory Medicine at [facility], certified under the Clinical Laboratory Improvement Amendments [...] fact sheets at the following FDA website: https://www.fda.gov/medical-devices/gfyjxehxlti-rvtdvch-9977-spkyp-03-erazdfzuf- auq-vipshauwdploao-hmcblij-devices/htswa-ysamyldteog-bqcv SARS-CoV-2 Source ECONOMICS FACULTY MEMBER Swab Lower Respiratory Culture Sputum Induced [[id number]] Collected: 08/15/22 0740 Lab Status: Final result Specimen: Sputum Induced Updated: 08/17/22 1015 Lower Respiratory Culture Rare normal upper respiratory wiley Gram Stain -- Many Neutrophils Few squamous epithelial cells Rare mixed bacterial morphotypes suggestive of normal upper respiratory wiley Blood culture [[id number]] Collected: 08/15/22 0110 Lab Status: Final result Specimen: Blood Updated: 08/20/22 0701 Blood Culture No growth at 5 days. MRSA PCR Screen ([facility]/CGP/APD/NLH) [[id number]] Collected: 08/15/22 0050 Lab Status: Final result Specimen: Nasopharyngeal Swab Updated: 08/17/22 1419 MRSA Result Negative MRSA Interp -- Methicillin-resistant Staphylococcus aureus (MRSA) is NOT DETECTED The MRSA target DNA sequences (mec and SCC) were not detected within the acceptable ranges using the Xpert MRSA NxG on the GeneXpert Dx System (Aud[employer]). This suggests the absence of MRSA in the patient specimen submitted for testing. This test is cleared by the U.S. Food and Drug Administration for clinical use and its performance characteristics have been verified by the [facility] at [facility]. This result does not rule out the presence of any other organisms. Rare false negative results may occur if MRSA is present at low concentrations with much higher concentrations of other organisms including MRSE or S. aureus with an empty SCC cassette. Comment: [VERIFIED DATE]08.17.22 Verified By:Shannon Smiley (Electronic Signature) Blood culture [[id number]] Collected: 08/14/22 2355 Lab Status: Final result [...] who have questions please contact the health animal care taker that requested your imaging first. Electronically signed by: Davi Terry MD, [facility] ([phone]), at 08/15/2022 3:53 AM XR Abdomen 1 view (Generic) (Exam [...] who have questions please contact the health animal care taker that requested your imaging first. Electronically signed by: Liliane Adams MD, [facility] ([phone]), at 08/15/2022 9:05 AM XR Chest One [...] who have questions please contact the health animal care taker that requested your imaging first. Electronically signed by: Davi Terry MD, [facility] ([phone]), at 08/15/2022 3:55 AM XR Abdomen 1 [...] who have questions please contact the health animal care taker that requested your imaging first. Electronically signed by: Davi Terry MD, [facility] ([phone]), at 08/15/2022 6:41 AM XR Chest One [...] who have questions please contact the health animal care taker that requested your imaging first. Electronically signed by: Alfonso Adams MD, [facility] ([phone]), at 08/16/2022 10:[address] Head wo [...] who have questions please contact the health animal care taker that requested your imaging first. Electronically signed by: Moustapha Correa MD, [facility] ([phone]), at 08/16/2022 11:19 PM XR Abdomen 1 [...] who have questions please contact the health animal care taker that requested your imaging first. Head wo Contrast (Generic) (Exam End: 08/18/2022 3:14 PM) Impression No acute intracranial process. Thank you for letting us participate in the care of this patient. If you are a health care provider and have any questions regarding this report, please contact the number below. For patients who have questions please contact the health animal care taker that requested your imaging first. Electronically signed by: Antonio Jordan MD, [facility] ([phone]), at 08/18/2022 3:18 PM XR Chest One [...] who have questions please contact the health animal care taker that requested your imaging first. Electronically signed by: Alan De Guzman MD, [facility] ([phone]), at 08/19/2022 3:14 PM MRI Brain wo Contrast (Exam End: 08/19/2022 10:15 PM) Impression No acute infarction, mass or mass effect. Thank you for letting us participate in the care of this patient. If you are a health care provider and have any questions regarding this report, please contact the number below. For patients who have questions please contact the health animal care taker that requested your imaging first. Electronically signed by: Jagdeep Lee MD, [facility] ([phone]), at 08/20/2022 3:34 AM XR Chest for [...] who have questions please contact the health animal care taker that requested your imaging first. Electronically signed by: Alan De Guzman MD, [facility] ([phone]), at 08/19/2022 4:[address] Hip w [...] who have questions please contact the health animal care taker that requested your imaging first. Electronically signed by: Aicha Chowdhury MD, [facility] ([phone]), at 08/21/2022 9:[address] Chest w [...] who have questions please contact the health animal care taker that requested your imaging first. Electronically signed by: Jagdeep Lee MD, [facility] ([phone]), at 08/21/2022 6:56 AM XR Hip 2-3 Views Left (Exam End: 08/22/2022 12:19 AM) Impression No radiographic evidence of infection. Thank you for letting us participate in the care of this patient. If you are a health care provider and have any questions regarding this report, please contact the number below. For patients who have questions please contact the health animal care taker that requested your imaging first. Electronically signed by: Viktor Cervantes MD, [facility] ([phone]), at 08/22/2022 12:43 PM XR Pelvis (Generic) (Exam End: 08/22/2022 12:19 AM) Impression No radiographic evidence of infection status post left hip ORIF. Thank you for letting us participate in the care of this patient. If you are a health care provider and have any questions regarding this report, please contact the number below. For patients who have questions please contact the health animal care taker that requested your imaging first. Electronically signed by: Richard Billings MD, [facility] ([phone]), at 08/22/2022 10:[address] Angiogram Coronary [...] who have questions please contact the health animal care taker that requested your imaging first. Electronically signed by: Arlette Mays MD, [facility] ([phone]), at 08/27/2022 11:[address] Chest wo Contrast (Generic) (Exam End: 08/27/2022 8:58 AM) Impression Stable findings of multifocal pneumonia. No interval abnormality. Thank you for letting us participate in the care of this patient. If you are a health care provider and have any questions regarding this report, please contact the number below. For patients who have questions please contact the health animal care taker that requested your imaging first. Electronically signed by: MINH QUIROGA MD, [facility] ([phone]), at 08/27/2022 10:48 AM XR Fluoro Barium [...] who have questions please contact the health animal care taker that requested your imaging first. Electronically signed by: Aron Billings MD, [facility] ([phone]), at 08/31/2022 12:02 PM Medications: Scheduled: ??? [...] anemia,??GERD??c/b??esophagitis &??Farrell's esophagus, who was admitted to [facility] on 08/14/2022 (now on Hospital Day #18) [...] level 08/29. - level 25mg/L 08/29 - PLAY BACK OPERATOR to evaluate, Recommend NPO at present - [...] Medicine PGY1 Medicine Team: Jose Juan, Pager #[phone] Date: 09/01/2022 Associated attestation - Tenisha Sandy [...] of two midnights or is on the [facility] inpatient only procedure list (status C) [...] on importance.No c/o pain. * Elsie Erickson, SUPERINTENDENT COLLIERY - 08/31/2022 3:07 PM EDT Follow Up [...] well. She is working on some ice [employer]. Objective Temp: [36.5 ??C (97.7 ??F)-37.2 ??C [...] deficiency anemia,??GERD??c/b??esophagitis &??Farrell's esophagus??presenting in transfer from [facility], suspected to be in cardiogenic shock and [...] of 98mls/hr Monitoring: Q4 Elsie Erickson APRN [facility] Endocrinology Diabetes Management Pager [phone] 20 minutes of this 35 minute visit was spent reviewing diabetes and treatment plan, reviewing all glucose and insulin data as well as relevant laboratory results with the patient, and coordination ofcare on the inpatient unit including nursing and primary team. * Petty Mccullough, PLAY BACK OPERATOR - 08/31/2022 10:16 AM EDT Speech-Language Pathology Modified Barium Swallow Evaluation Patient Profile:??Ishan Irving is a 62 year old female with a medical history notable for??recent L femoral neck fracture,??bipolar disorder, resolving medication-induced Parkinsonism, insulin-dependent diabetes mellitus,??hx of alcohol use disorder (reported to be in remission for 1.5 years)c/b chronic pancreatitis, iron deficiency anemia,??GERD??c/b??esophagitis &??Farrell's esophagus??presenting in transfer from [facility]??on 08/14/2022, suspected to be in cardiogenic shock and found to be in mixed shock with concern for stress cardiomyopathy.??PLAY BACK OPERATOR service was consulted to assess oropharyngeal swallow [...] cup, by straw with attempted chin tuck. Penn consistency thickened liquid by spoon x1, by [...] x2 ??? Posterior laryngeal portion of epiglottis: Penn-thick by spoon ??? Pyriform Sinuses: Thin liquids by cup, Penn-thick liquids by strawe ??? Airway: Thin liquids [...] the vocal cords, but is not ejected: Penn-thick liquids 4 = material enters the airway, [...] nutrition/hydration to provide nutrition during rehab course. PLAY BACK OPERATOR will f/u for ongoing swallow intervention and therapeutic trials. Barium swallow (esophagram) will be helpful at later date, however Pt is at high potential for aspiration during study d/t positioning requirements for barium swallow. Pt would benefit from skilled PLAY BACK OPERATOR services to maximize swallow function and safety [...] questions or concerns. Petty Mccullough, BRAYDON MS, CCC-PLAY BACK OPERATOR Pager: [phone] Speech-Language Pathology Inpatient Rehabilitation Department * Gene [...] deficiency anemia,??GERD??c/b??esophagitis &??Farrell's esophagus??presenting in transfer from [facility], suspected to be in cardiogenic shock and [...] TA x 2 GENE YOUNG, PT Pager: [phone] Physical Therapy Inpatient Rehabilitation Department * Nancy Ernst, RD - 08/31/2022 8:21 AM EDT Nutrition Progress Note Ishan Irving is a 62 y.o.??female??with h/o bipolar, DM, EtOH, esophagitis, who presented to [facility] 3 days ago after being found unresponsive at home.?Patient found to have likely pneumonia +/- aspiration, newly reduced EF. Reason for Assessment: Follow-up, Tube Feeding Nutrition Recommendations: Enteral Nutrition: Cyclic Peptamen AF at 110ml/hr for 12hrs from [id number] At goal, this will provide: Peptamen AF Total Volume Per Day: 1320 mL Scoops of Protein: 0 Calories per Day: 1584 Protein per Day: 100 g Free Water mL per Day: 1072 % RDI: 106 % Monitor hydration status on above TFs as they are concentrated. Pt may need additional fluids depending on IVFs, med flushes, p.o. Intake, etc. Diet per PLAY BACK OPERATOR Monitor weight to trend Monitor BM. Goal [...] encounter: 67.7 kg (149 lb 4.8 oz). Stevens Body Weight (IBW) (kg): 45.45 Usual Body [...] 08/25 r/t liquid tylenol, d/c per this music writer's request as liquid tylenol acts as [...] up while inpatient Nancy Ernst RD Pager #:[phone] * Irwin Jones MD - 08/31/2022 7:09 AM EDT Images from the original note were not included. Inpatient Hospital Medicine Progress Note 08/31/2022 Patient Name: ISHAN IRVING Date of : 1960 Age: 62 y.o. Hospital Admit Date: 08/14/2022 Hospital Day: 17 Inpatient Attending: Alfonso Navarrete MD PCP: Chris Stanley APRN ([phone]) No chief complaint on file. ID: Ishan Irving is a 62 y.o. 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.5 years) c/b chronic pancreatitis, iron deficiency anemia, ??GERD??c/b??esophagitis &??Farrell's esophagus, who was admitted to [facility] on 08/14/2022 (now on Hospital Day #17), and transferred to Hospital Medicine team from Cardiology on 08/30 for mixed shock with concern for stress cardiomyopathy (Takotsubo Cardiomyopathy). 24 HOUR EVENTS & SUBJECTIVE: Yesterday: - Patient transferred from [facility] as cardiomyopathy is now stabilized on goal directed therapy - Patient, per PLAY BACK OPERATOR eval, is strict NPO given HIGH concern [...] Gas): No results found for: PHART, PO2ART, NHC3WSE, ZOA3MRW VBG (Venous Blood Gas): No results for input(s): PHVEN, REQ6EMV, PO2VEN, IDA7VQF, BEVEN, XJL1IUC in the last 72 hours. EKG: Lab [...] Date/Time Lower Respiratory Culture Bronchial Alveolar Lavage [[id number]] Collected: 08/21/221649 Lab Status: Final result Specimen: Bronchial Alveolar Lavage Updated: 08/23/22 0741 Lower Respiratory Culture Rare mixed bacterial morphotypes suggestive of normal upper respiratory wiley Gram Stain -- Few Neutrophils seen No squamous epithelial cells seen No microorganisms seen. Fungus Culture & Calc Stain Bronchial Alveolar Lavage [[id number]] (Abnormal) Collected: 08/21/221649 Lab Status: Preliminary result Specimen: Bronchial Alveolar Lavage Updated: 08/24/22 145 AFB culture Bronchial Alveolar Lavage [[id number]] Collected: 08/21/221649 Lab Status: Preliminary result Specimen: Bronchial Alveolar Lavage Updated: 08/24/22 221 Acid Fast Bacilli Culture -- No Acid Fast Bacilli isolated to date If active tuberculosis is suspected, the patient should be on AIRBORNE PRECAUTIONS. Call Infection Prevention for assistance if needed. Acid Fast Stain No Acid Fast Bacilli seen Fungus culture [[id number]] (Abnormal) Collected: 08/21/221649 Lab Status: Preliminary result Specimen: Bronchial Alveolar Lavage Updated: 08/24/22 145 Fungus Culture Rare Jacky albicans Calcofluor White Stain [[id number]] Collected: 08/21/221649 Lab Status: Final result Specimen: Bronchial Alveolar Lavage Updated: 08/21/22 2016 Calcofluor Stain Calcofluor White Preparation: Negative Lower Respiratory Culture Bronchial Alveolar Lavage [[id number]] Collected: 08/21/221644 Lab Status: Final result Specimen: Bronchial Alveolar Lavage Updated: 08/23/22 0741 Lower Respiratory Culture Rare mixed bacterial morphotypes suggestive of normal upper respiratory wiley Gram Stain -- Moderate Neutrophils seen No squamous epithelial cells seen No microorganisms seen. Fungus Culture & Calc Stain Bronchial Alveolar Lavage [[id number]] (Abnormal) Collected: 08/21/221644 Lab Status: Preliminary result Specimen: Bronchial Alveolar Lavage Updated: 08/24/22 145 AFB culture Bronchial Alveolar Lavage [[id number]] Collected: 04/14/23 1645 Lab Status: Preliminary result Specimen: Bronchial Alveolar Lavage Updated: 08/24/22 2221 Acid Fast Bacilli Culture -- No Acid Fast Bacilli isolated to date If active tuberculosis is suspected, the patient should be on AIRBORNE PRECAUTIONS. Call Infection Prevention for assistance if needed. Acid Fast Stain No Acid Fast Bacilli seen Fungus culture [[id number]] (Abnormal) Collected: 08/21/22 1645 Lab Status: Preliminary result Specimen: Bronchial Alveolar Lavage Updated: 08/24/22 1453 Fungus Culture Rare Jacky albicans Calcofluor White Stain [[id number]] Collected: 08/21/22 164 Lab Status: Final result Specimen: Bronchial Alveolar Lavage Updated: 08/21/22 2017 Calcofluor Stain Calcofluor White Preparation: Negative Blood culture [[id number]] Collected: 08/19/22 1720 Lab Status: Final result Specimen: Blood Updated: 08/24/22 2301 Blood Culture No growth at 5 days. Lower Respiratory Culture Sputum Induced [[id number]] Collected: 08/19/22 1451 Lab Status: Final result Specimen: Sputum Induced Updated: 08/21/22 0948 Lower Respiratory Culture Rare mixed bacterial morphotypes suggestive of normal upper respiratory wiley Gram Stain -- Many Neutrophils seen Few squamous epithelial cells seen No microorganisms seen. Blood culture [[id number]] Collected: 08/19/22 1330 Lab Status: Final result Specimen: Blood Updated: 08/24/22 1501 Blood Culture No growth at 5 days. Legionella Urinary Antigen [[id number]] Collected: 08/18/22 1013 Lab Status: Final result [...] Catheter Urine; Other; sepsis, bacteria on UA [[id number]] Collected: 08/15/22 1225 Lab Status: Final result Specimen: Indwelling Catheter Urine Updated: 08/16/22 0804 Urine Culture 1,000-9,000 cfu/ml Insignificant growth COVID-19 PCR [[id number]] Collected: 08/15/22 1150 Lab Status: Final result [...] using the Simplexa COVID-19 Direct Assay by Wistia as authorized by the FDA issued Emergency [...] Department of Pathology and Laboratory Medicine at [facility], certified under the Clinical Laboratory Improvement Amendments [...] fact sheets at the following FDA website: https://www.fda.gov/medical-devices/vgfhlihmqff-jcsljps-6141-bnalf-23-qdvfdomvd- rrd-eeuyxkrlyfxmmo-cxdyhcd-devices/qwyyp-wzybsbzqljf-hurb SARS-CoV-2 Source ECONOMICS FACULTY MEMBER Swab Lower Respiratory Culture Sputum Induced [[id number]] Collected: 08/15/22 0740 Lab Status: Final result Specimen: Sputum Induced Updated: 08/17/22 1015 Lower Respiratory Culture Rare normal upper respiratory wiley Gram Stain -- Many Neutrophils Few squamous epithelial cells Rare mixed bacterial morphotypes suggestive of normal upper respiratory wiley Blood culture [[id number]] Collected: 08/15/22 0110 Lab Status: Final result Specimen: Blood Updated: 08/20/22 0701 Blood Culture No growth at 5 days. MRSA PCR Screen ([facility]/CGP/APD/NLH) [[id number]] Collected: 08/15/22 0050 Lab Status: Final result Specimen: Nasopharyngeal Swab Updated: 08/17/22 1419 MRSA Result Negative MRSA Interp -- Methicillin-resistant Staphylococcus aureus (MRSA) is NOT DETECTED The MRSA target DNA sequences (mec and SCC) were not detected within the acceptable ranges using the Xpert MRSA NxG on the GeneXpert Dx System (Aud[employer]). This suggests the absence of MRSA in the patient specimen submitted for testing. This test is cleared by the U.S. Food and Drug Administration for clinical use and its performance characteristics have been verified by the [facility] at [facility]. This result does not rule out the presence of any other organisms. Rare false negative results may occur if MRSA is present at low concentrations with much higher concentrations of other organisms including MRSE or S. aureus with an empty SCC cassette. Comment: [VERIFIED DATE]08.17.22 Verified By:Shannon Smiley (Electronic Signature) Blood culture [[id number]] Collected: 08/14/22 6875 Lab Status: Final result Specimen: Blood Updated: [...] who have questions please contact the health animal care taker that requested your imaging first. Electronically signed by: Davi Terry MD, [facility] ([phone]), at 08/15/2022 3:53 AM XR Abdomen 1 view (Generic) (Exam [...] who have questions please contact the health animal care taker that requested your imaging first. Electronically signed by: Liliane Adams MD, [facility] ([phone]), at 08/15/2022 9:05 AM XR Chest One [...] who have questions please contact the health animal care taker that requested your imaging first. Electronically signed by: Davi Terry MD, [facility] ([phone]), at 08/15/2022 3:55 AM XR Abdomen 1 [...] who have questions please contact the health animal care taker that requested your imaging first. Electronically signed by: Davi Terry MD, [facility] ([phone]), at 08/15/2022 6:41 AM XR Chest One [...] who have questions please contact the health animal care taker that requested your imaging first. Electronically signed by: Alfonso Adams MD, [facility] ([phone]), at 08/16/2022 10:[address] Head wo [...] who have questions please contact the health animal care taker that requested your imaging first. Electronically signed by: Moustapha Correa MD, [facility] ([phone]), at 08/16/2022 11:19 PM XR Abdomen 1 [...] who have questions please contact the health animal care taker that requested your imaging first. Head wo Contrast (Generic) (Exam End: 08/18/2022 3:14 PM) Impression No acute intracranial process. Thank you for letting us participate in the care of this patient. If you are a health care provider and have any questions regarding this report, please contact the number below. For patients who have questions please contact the health animal care taker that requested your imaging first. Electronically signed by: Antonio Jordan MD, [facility] ([phone]), at 08/18/2022 3:18 PM XR Chest One [...] who have questions please contact the health animal care taker that requested your imaging first. Electronically signed by: Alan De Guzman MD, [facility] ([phone]), at 08/19/2022 3:14 PM MRI Brain wo Contrast (Exam End: 08/19/2022 10:15 PM) Impression No acute infarction, mass or mass effect. Thank you for letting us participate in the care of this patient. If you are a health care provider and have any questions regarding this report, please contact the number below. For patients who have questions please contact the health animal care taker that requested your imaging first. Electronically signed by: Jagdeep Lee MD, [facility] ([phone]), at 08/20/2022 3:34 AM XR Chest for [...] who have questions please contact the health animal care taker that requested your imaging first. Electronically signed by: Alan De Guzman MD, [facility] ([phone]), at 08/19/2022 4:[address] Hip w [...] who have questions please contact the health animal care taker that requested your imaging first. Electronically signed by: Aicha Chowdhury MD, [facility] ([phone]), at 08/21/2022 9:[address] Chest w [...] who have questions please contact the health animal care taker that requested your imaging first. Electronically signed by: Jagdeep Lee MD, [facility] ([phone]), at 08/21/2022 6:56 AM XR Hip 2-3 Views Left (Exam End: 08/22/2022 12:19 AM) Impression No radiographic evidence of infection. Thank you for letting us participate in the care of this patient. If you are a health care provider and have any questions regarding this report, please contact the number below. For patients who have questions please contact the health animal care taker that requested your imaging first. Electronically signed by: Viktor Cervantes MD, [facility] ([phone]), at 08/22/2022 12:43 PM XR Pelvis (Generic) (Exam End: 08/22/2022 12:19 AM) Impression No radiographic evidence of infection status post left hip ORIF. Thank you for letting us participate in the care of this patient. If you are a health care provider and have any questions regarding this report, please contact the number below. For patients who have questions please contact the health animal care taker that requested your imaging first. Electronically signed by: Richard Billings MD, [facility] ([phone]), at 08/22/2022 10:[address] Angiogram Coronary [...] who have questions please contact the health animal care taker that requested your imaging first. Electronically signed by: Arlette Mays MD, [facility] ([phone]), at 08/27/2022 11:[address] Chest wo Contrast (Generic) (Exam End: 08/27/2022 8:58 AM) Impression Stable findings of multifocal pneumonia. No interval abnormality. Thank you for letting us participate in the care of this patient. If you are a health care provider and have any questions regarding this report, please contact the number below. For patients who have questions please contact the health animal care taker that requested your imaging first. Electronically signed by: MINH QUIROGA MD, [facility] ([phone]), at 08/27/2022 10:48 AM Medications: Scheduled: ??? [...] ??? tube feeding diet 1,176 mL (08/31/22 5969) PRN: ondansetron, iohexoL, melatonin, polyethylene glycoL, senna, [...] anemia,??GERD??c/b??esophagitis &??Farrell's esophagus, who was admitted to [facility] on 08/14/2022 (now on Hospital Day #17) [...] level 08/29. - level 25mg/L 08/29 - PLAY BACK OPERATOR to evaluate, Recommend strict NPO - Reach [...] Medicine PGY1 Medicine Team: Jose Juan, Pager #[phone] Date: 08/31/2022 Associated attestation - Tenisha Sandy [...] & Farrell's esophagus presenting in transfer from [facility], suspected to be in cardiogenic shock and [...] Will check VPA trough level 08/29. - PLAY BACK OPERATOR to evaluate. - Reach out to neurology, [...] 0. GDMT for HFrEF. Appreciate psychiatry and PLAY BACK OPERATOR consultation. Rest per Dr. Avila. Roland Pruett MD, MPH, RPVI, FACC, FARYAN, SHERI, FS Pager [phone] Cardiovascular [employer] [place] [address] * Petty Mccullough, PLAY BACK OPERATOR - 08/28/2022 3:49 PM EDT Speech Therapy Note Patient Profile: Ishan Irving is a 62 year old female with a medical history notable for??recent L femoral neck fracture,??bipolar disorder, resolving medication-induced Parkinsonism, insulin-dependent diabetes mellitus,??hx of alcohol use disorder (reported to be in remission for 1.5 years) c/b chronic pancreatitis, iron deficiency anemia,??GERD??c/b??esophagitis &??Farrell's esophagus??presenting in transfer from [facility] on 08/14/2022, suspected to be in cardiogenic shock and found to bein mixed shock with concern for stress cardiomyopathy. PLAY BACK OPERATOR service was consulted to assess oropharyngeal swallow [...] non-productive. Bolus Presentation(s) ?? Ice chips ?? Penn thickened liquid via cup ?? Puree Oral [...] [x] [] Orientation Log Score: 21 Education: PLAY BACK OPERATOR educated re: plan of care, recs for MBS at later date. Pt in agreement, stating she would like DHT out but understands she is not ready to eat/drink yet. Assessment: Pt was seen today for a follow-up PLAY BACK OPERATOR visit. ??? Oropharyngeal swallow function characterized by [...] from staff as needed Plan: Therapy Frequency (PLAY BACK OPERATOR Eval): 2-4 times/wk Pt./family are in agreement with treatment plan. Total Minutes (Speech Language Pathology): 30 Petty Mccullough M.S., [facility]-PLAY BACK OPERATOR Inpatient Speech-Pathology Pager: [phone] * Elsie Erickson APRN - 08/28/2022 3:49 [...] deficiency anemia,??GERD??c/b??esophagitis &??Farrell's esophagus??presenting in transfer from [facility], suspected to be in cardiogenic shock and [...] of 98mls/hr Monitoring: Q4 Elsie Erickson APRN [facility] Endocrinology Diabetes Management Pager [phone] 40 minutes of this 50 minute visit was spent evaluating diabetes and treatment plan, reviewing all glucose and insulin data as well as relevant laboratory results , and coordination of care on the inpatient unit including nursing and primary team. * Shashi Young - 08/28/2022 2:46 PM EDT University Librarian Encounter Note Patient Name: Ishan Irving : [id number] MR#: [id number] Admit Date: 08/14/2022 11:11 PM Hospital Day [...] Shashi Young - 08/28/2022 11:45 AM EDT University Librarian Encounter Note Patient Name: Ishan Irving : [id number] MR#: [id number] Admit Date: 08/14/2022 11:11 PM Hospital Day [...] deficiency anemia,??GERD??c/b??esophagitis &??Farrell's esophagus??presenting in transfer from [facility], suspected to be in cardiogenic shock and [...] discharge: to be determined Anticipated Discharge Disposition: group home facility, acute rehabilitation facility Daily schedule / [...] 2-4 times/wk Total Minutes, Occupational Therapy: 28 (6 XR [phone]) Pager: [phone] Alicia Cook OT 08/28/2022 Occupational Therapy Rehabilitation [...] deficiency anemia,??GERD??c/b??esophagitis &??Farrell's esophagus??presenting in transfer from [facility], suspected to be in cardiogenic shock and [...] Billing Code: TAx2 GENE YOUNG, PT Pager: [phone] Physical Therapy Inpatient Rehabilitation Department * Avani Ayala RN - 08/28/2022 10:02 AM EDT Office of Care Management (OCM /[place] (CM)Discharge planning ) Service : S1 Pager #[phone] e- reviewed. Report received from [facility] Patient plan of care discussed with Team and Nursing to assessment for continuing care and discharge needs. [facility]: 14 DECISION MAKER: Attempt Cardiopulmonary Resuscitation - Inpatient, <no information> Ongoing Issues: This music writer had a message to give Antonio a call . He has reqyested that [facility] be the referral of choice . He [...] discuss discharge planning needs. ?? provide the [facility], Office of Care Management letter from the [facility] pertaining to rehabreferrals. ?? provide a letter describing our affiliations within the [facility] and educate about their right to choose where referrals are sent. ?? provide the [facility] Star Quality Rating handout. ?? review the different levels of rehab including SNF, swing, and acute. ?? provide a list of facilities within their preferred geographic area. ?? request that they provide at least three choices for referral. They have requested referrals to: [facility] ([facility]) [address] [place] [id number] P: [phone] F: [phone] Does patient have COVID vaccine card: No Note routed to a Maintenance And Engineering Manager who will communicate referrals to facilities and [...] planning. Avani Ayala RN, CM Pager # [phone] * Reynaldo Avila MD - 08/28/2022 7:43 [...] & Farrell's esophagus presenting in transfer from [facility], suspected to be in cardiogenic shock and [...] parkinsonism/medication regimen contributing to overall slow recovery. PLAY BACK OPERATOR consulted, appreciate recs. Neuro: # Bipolar Disorder - Depakote 300 mg oral liquid per Dobhoff tube q6hr. - Continue Seroquel 100mg nightly - Will check VPA trough level 08/29. - PLAY BACK OPERATOR to evaluate. - Reach out to neurology, [...] 0. GDMT for HFrEF. Appreciate psychiatry and PLAY BACK OPERATOR consultation. Roland Pruett MD, MPH, RPVI, FACC, FAHA, FASE, FS Pager [phone] [employer] [place] [address] * Cydney Moses, RN - 08/28/2022 7:00 AM EDT Pt was able to sleep most of the shift and woke up intermittently for basic need request. Tube feeding restarted per protocol at 45ml/hr. * Neva Zhao MSW - 08/27/2022 11:52 AM EDT This TEACHER RESOURCE received a message this morning from Ishan's spouse, Antonio, asking for a gas card. ThisMSW and transportation RS went to talk to Antonio about his request and provide him with informationon Medicaid rides. Antonio said he is familiar with Medicaid rides, but he is not interested in using those services at this time. This TEACHER RESOURCE then explained that the hospital is unable to provide gas cards if Medicaid rides are available. Antonio expressed understanding of this. Antonio then expressed frustration around the lack of support available from the state of [place], sharing that he continues to be unable to find any type of emergency assistance to help with bills and other expenses. Antonio thentalked about his support system, including their two sons that live in [place], as well as his sister and mother [...] deficiency anemia,??GERD??c/b??esophagitis &??Farrell's esophagus??presenting in transfer from [facility], suspected to be in cardiogenic shock and found to be in mixed shock with concern for stress cardiomyopathy. She is s/p ORIF left femoral neck fracture 5 days ago at OSH. Interval History: transferred to [facility]; mcrae removed; dobhoff remains Social History: single [...] TA x 2 GENE YOUNG, PT Pager: [phone] Physical Therapy Inpatient Rehabilitation Department * Reynaldo [...] & Farrell's esophagus presenting in transfer from [facility], suspected to be in cardiogenic shock and [...] and will check VPA level 08/29. - PLAY BACK OPERATOR to evaluate, pending recs Pulmonary: # Acute [...] Avila MD Internal Medicine, PGY-1 Cardiology [facility] #[id number] Associated attestation - Milagros Hernandez MD - [...] the hospital. Hemodynamics stable. Still NPO per PLAY BACK OPERATOR with enteral nutrition through DHT. Proceeding with [...] of two midnights or is on the [facility] inpatient only procedure list (status C) due to: decompensated congestive heart failure requiring IV medication and fluid monitoring and aspiration pneumonia unable to advance oralintake. Milagros Hernandez MD Cardiovascular Medicine Personal Pager [phone] 08/27/2022 6:22 PM * Rober Mensah MD [...] time. Orthopedics to sign off. Please page [phone] with any questions or concerns. Rober Mensah MD 08/27/22 * Nancy Ernst RD - 08/27/2022 8:16 AM EDT Nutrition Progress Note Ishan Irving is a 62 y.o.??female??with h/o bipolar, DM, EtOH, esophagitis, who presented to [facility] 3 days ago after being found unresponsive at home.?Patient found to have likely pneumonia +/- aspiration, newly reduced EF. Reason for Assessment: Follow-up, Tube Feeding Nutrition Recommendations: Enteral Nutrition: Cyclic Peptamen AF at 98ml/hr for 12hrs from [phone] At goal, this will provide: Peptamen AF [...] encounter: 69.6 kg (153 lb 6.4 oz). Stevens Body Weight (IBW) (kg): 45.45 Usual Body [...] 08/25 r/t liquid tylenol, d/c per this music writer's request as liquid tylenol acts as [...] up while inpatient Nancy Ernst RD Pager #:[phone] * Cydney Moses RN - 08/27/2022 7:44 [...] PM EDT Patient arrived via bed from [facility] this afternoon in stable condition. VSS. Denies any chest pain/SOB. Feeding tube running at goal (45mL/hr). Patient A+Ox2-3. C/O of mild lower back pain. External female catheter in place d/t frequency and incontinence. Safety maintained, bed alarm on. Call light within reach. Pt oriented to room. * Neva Zhao MSW - 08/26/2022 2:30 PM EDT TEACHER RESOURCE received message stating that Ishan's , Antonio, is requesting social work support. Antonio shared that they have been denied support through economic services due to his disability income. Antonio also shared that he reached out to unemployment and his [employer] case worker, but he has not found anyone able to help with their immediate financial needs (rent, utilities). Antonio became emotional during conversation, sharing that he is concerned they will lose their home if theycan't pay their bills. TEACHER RESOURCE provided support and promised to follow up with resources this afternoon. UPDATE: This TEACHER RESOURCE called [facility] to provide information for [facility], [facility] on Aging, [facility], and the local food pantry. Antonio appreciativeof [...] deficiency anemia,??GERD??c/b??esophagitis &??Farrell's esophagus??presenting in transfer from [facility] on 08/14/2022, suspected to be in cardiogenic shock and found to bein mixed shock with concern for stress cardiomyopathy. PLAY BACK OPERATOR service was consulted to assess oropharyngeal swallow [...] chips ?? Thin liquid via spoon ?? Penn thickened liquid via spoon ?? via cup [...] reports pt was being followed closely by Assistant Associate Professor and was supposed to go for a barium swallow sometime soon so they could look at her esophagus) Education: Pt and pt's , Antonio, verbally educated by this clinician to PLAY BACK OPERATOR role, results ofthis bedside reassessment, pt current swallow status/function, aspiration risks, safe swallow technique (optimizing upright positioning) and impact of baseline esophageal history on function. Discussed plan as outlined below. Antonio verbalizes understanding and agreement; pt reports I guess so when asked if she understands. Assessment: Pt was seen today for a follow-up PLAY BACK OPERATOR visit/reassessment. Pt sitting upright in chair today [...] have a barium swallow at baseline (via watch assembly inspector) at some point to further assess esophageal [...] means only Continue alternative access (currently with [facility]) for primary nutrition/meds Consider GI input given baseline esophageal history? Aspiration Precautions: Excellent oral care Speech Therapy Goals: Pt will tolerate least restrictive diet without evidence of dysphagia / aspiration. Pt / caregiver will be independent with aspiration precautions, diet modifications, and safe swallowing strategies. Pt will maintain hydration / nutrition with optimal safety and efficiency. Plan: Therapy Frequency (PLAY BACK OPERATOR Eval): 2-4 times/wk Patient / family are in agreement with treatment plan. Total Minutes (Speech Language Pathology): 25 Thank you for this consult with this patient. Please feel free to page me with any questions or concerns. Afia Bergeron M.S., [facility]-PLAY BACK OPERATOR Pager: [phone] Speech-Language Pathology Inpatient Rehabilitation Medicine * Moustapha [...] & Farrell's esophagus presenting in transfer from [facility], suspected to be in cardiogenic shock and [...] this AM. She has been working with PLAY BACK OPERATOR/PT/OT and would benefit from continuation. Plan to obtain CT chest and CTA Coronaries today/tomorrow. Neuro: # Bipolar Disorder - Depakote 190 mg oral liquid per Dobhoff - Continue Seroquel 25mg nightly - Plan to increase to full home regimen (250mg QPM / 1g Q3PM) by 08/24. - PLAY BACK OPERATOR to evaluate, pending recs Pulmonary: # Acute [...] Mg >1, K >4 ?? Renal/Fluids/Electrolytes: # AMRILIN, resolved. - Likely in setting of low [...] of two midnights or is on the [facility] inpatient only procedure list (status C) due to: acute respiratory compromise and/or hypoxia requiring assessment every 4 hours and the ability to respond immediately to the patient's needs and acute cardiomyopathy requiring further evaluation and therapy and acute toxic metabolic encephalopathy. Milagros Hernandez MD Cardiovascular Medicine Personal Pager [phone] 08/26/2022 5:28 PM * Gene Young, PT [...] deficiency anemia,??GERD??c/b??esophagitis &??Farrell's esophagus??presenting in transfer from [facility], suspected to be in cardiogenic shock and [...] plan as stated. Time IN / OUT: 5681-4488 Total Minutes, Physical Therapy: 20 Billing Code: TA x 1 GENE YOUNG, PT Pager: [phone] Physical Therapy Inpatient Rehabilitation Department * Elsie Erickson, SUPERINTENDENT COLLIERY - 08/26/2022 8:37 AM EDT Follow Up [...] deficiency anemia,??GERD??c/b??esophagitis &??Farrell's esophagus??presenting in transfer from [facility], suspected to be in cardiogenic shock and [...] tid ac & hs Elsie Erickson APRN [facility] Endocrinology Diabetes Management Pager [phone] * Chiquita Mukherjee, PT - 08/25/2022 5:24 [...] deficiency anemia,??GERD??c/b??esophagitis &??Farrell's esophagus??presenting in transfer from [facility], suspected to be in cardiogenic shock and [...] ta x 3 CHIQUITA MUKHERJEE PT Pager: [phone] Physical Therapy Inpatient Rehabilitation Department * Shea Wilkinson - 08/25/2022 4:15 PM EDT Yony Encounter Note Patient Name: Ishan Irving : [id number] MR#: [id number] Admit Date: 08/14/2022 11:11 PM Hospital Day [...] Shashi Young - 08/25/2022 1:30 PM EDT University Librarian Encounter Note Patient Name: Ishan Irving : [id number] MR#: [id number] Admit Date: 08/14/2022 11:11 PM Hospital Day [...] deficiency anemia,??GERD??c/b??esophagitis &??Farrell's esophagus??presenting in transfer from [facility], suspected to be in cardiogenic shock and found to be in mixed shock with concern for stress cardiomyopathy. She is s/p ORIF left femoral neck fracture 5 days ago. Past Medical History: Diagnosis Date ??? Bipolar disorder 02/12/2022 Past Surgical History: Procedure Laterality Date ??? PRO COLONOSCOPY, BIOPSY N/A 03/20/2016 COLONOSCOPY FLEXIBLE, WITH BX performed by David Dejesus MD at [facility] ENDOSCOPY ??? PRO COLONOSCOPY, DIAGNOSTIC N/A 03/01/2020 COLONOSCOPY, DIAGNOSTIC performed by David Dejesus MD at [facility] ENDOSCOPY ??? PRO ENDOSCOPIC US EXAM, ESOPH N/A 03/31/2022 UPPER EUS- ENDOSCOPIC ULTRASOUND performed by David Dejesus MD at [facility] ENDOSCOPY ??? PRO UPPER GI ENDOSCOPY, BIOPSY N/A 04/03/2014 UPPER GASTROINTESTINAL ENDOSCOPY,WITH BIOPSY SINGLE OR MULTIPLE performed by [facility] MDat [facility] ??? PRO UPPER GI ENDOSCOPY, BIOPSY N/A 03/20/2016 EGD WITH BIOPSY performed by David Dejesus MD at [facility] ??? PRO UPPER GI ENDOSCOPY, BIOPSY N/A 11/22/2018 EGD WITH BIOPSY (WRVU 2.49) performed by David Dejesus MD at [facility] ??? PRO UPPER GI ENDOSCOPY, BIOPSY N/A 03/01/2020 UPPER GASTROINTESTINAL ENDOSCOPY,WITH BIOPSY SINGLE OR MULTIPLE (WRVU 2.49) performed by David Dejesus MD at [facility] ??? PRO UPPER GI ENDOSCOPY, BIOPSY N/A 09/23/2021 EGD WITH BIOPSY (WRVU 2.49) performed by David Dejesus MD at [facility] ??? PRO UPPER GI ENDOSCOPY, BIOPSY N/A 03/31/2022 EGD WITH BIOPSY (WRVU 2.49) performed by David Dejesus MD at [facility] ??? PRO UPPER GI ENDOSCOPY, BIOPSY N/A 07/03/2022 EGD WITH BIOPSY (WRVU 2.49) performed by David Dejesus MD at [facility] ??? PRO UPPER GI ENDOSCOPY, DIAGNOSTIC N/A 04/03/2014 EGD, UPPER GI ENDOSCOPY performed by David Dejesus MD at [facility] ??? PRO UPPER GI ENDOSCOPY, DIAGNOSTIC N/A 03/01/2020 EGD, UPPER GI ENDOSCOPY performed by David Dejesus MD at [facility] Social History: Patient lives with her [...] to be determined Anticipated Discharge Disposition (OT): group home facility Activity Recommendations: ?? Encourage use of [...] and measurable assessment of functional outcome. Pager: [phone] ADRIENNE ADLER OT 08/25/2022 Occupational Therapy Rehabilitation [...] & Farrell's esophagus presenting in transfer from [facility], suspected to be in cardiogenic shock and [...] first dose, check VPA level (08/24) - PLAY BACK OPERATOR to evaluate, pending recs Pulmonary: # Acute [...] barium swallow at this point and that PLAY BACK OPERATOR is evaluating her regularly. Will plan for CTA cors and chest tomorrow rather than cath- discussed with . Transition from insulin gtt to basal/bolus, appreciate assistance of DM team. Milagros Hernandez MD Cardiovascular Medicine Personal Pager [phone] 08/25/2022 1:51 PM * Afia Bergeron, PLAY BACK OPERATOR - 08/24/2022 5:57 PM EDT Speech Therapy [...] stool ball on CT. Plan [facility] medically optimized. PLAY BACK OPERATOR service consulted 08/22/22 to assess oropharyngeal swallow [...] esophageal dysfunction Education: Pt verbally educated to PLAY BACK OPERATOR role, results of this bedside reasesssment, and plan as outlined below. Pt verbalizes understanding and agreement with plan. Assessment: Pt was seen today for a follow-up PLAY BACK OPERATOR visit/reassessment. Continues to demonstrate oropharyngeal dysphagia and overt signs of aspiration with trials at the bedside today. Suboptimal positioning likely contributing as pt refuses to sit upright > 30/40 degrees today, also easy to fatigue. For now will suggest ice chips in moderation with RN for oral comfort and swallow stimulation when she is awake/alert and agrees to sit more upright. PLAY BACK OPERATOR will continue to follow with team. Pt [...] good candidate for the current oral care records management engineer program taking place on specific units at [facility]. Please use LE oral suction toothbrushes to perform oral care 2-4x daily. ?? Pt will benefit from continued PLAY BACK OPERATOR services while hospitalized Speech Therapy Goals: Pt will tolerate least restrictive diet without evidence of dysphagia / aspiration. Pt / caregiver will be independent with aspiration precautions, diet modifications, and safe swallowing strategies. Pt will maintain hydration / nutrition with optimal safety and efficiency. Plan: Therapy Frequency (PLAY BACK OPERATOR Eval): 2-3 times/wk Patient / family are in agreement with treatment plan. Total Minutes (Speech Language Pathology): 25 Thank you for this consult with this patient. Please feel free to page me with any questions or concerns. Afia Bergeron M.S., CCC-PLAY BACK OPERATOR Pager: [phone] Speech-Language Pathology Inpatient Rehabilitation Medicine * Danielito [...] 1-5 /HPF Hypochromia Slight Ovalocytes 1-5 /HPF [place] Cells 1-5 /HPF Platelet Clumps Present POCT [...] BX performed by David Dejesus MD at [facility] ??? PRO COLONOSCOPY, DIAGNOSTIC N/A 03/01/2020 COLONOSCOPY, DIAGNOSTIC performed by David Dejesus MD at [facility] ??? PRO ENDOSCOPIC US EXAM, ESOPH N/A 03/31/2022 UPPER EUS- ENDOSCOPIC ULTRASOUND performed by David Dejesus MD at [facility] ??? PRO UPPER GI ENDOSCOPY, BIOPSY N/A 04/03/2014 UPPER GASTROINTESTINAL ENDOSCOPY,WITH BIOPSY SINGLE OR MULTIPLE performed by David Dejesus MDat [facility] ??? PRO UPPER GI ENDOSCOPY, BIOPSY N/A 03/20/2016 EGD WITH BIOPSY performed by David Dejesus MD at [facility] ??? PRO UPPER GI ENDOSCOPY, BIOPSY N/A 11/22/2018 EGD WITH BIOPSY (WRVU 2.49) performed by David Dejesus MD at [facility] ??? PRO UPPER GI ENDOSCOPY, BIOPSY N/A 03/01/2020 UPPER GASTROINTESTINAL ENDOSCOPY,WITH BIOPSY SINGLE OR MULTIPLE (WRVU 2.49) performed by David Dejesus MD at [facility] ??? PRO UPPER GI ENDOSCOPY, BIOPSY N/A 09/23/2021 EGD WITH BIOPSY (WRVU 2.49) performed by David Dejesus MD at [facility] ??? PRO UPPER GI ENDOSCOPY, BIOPSY N/A 03/31/2022 EGD WITH BIOPSY (WRVU 2.49) performed by David Dejesus MD at [facility] ??? PRO UPPER GI ENDOSCOPY, BIOPSY N/A 07/03/2022 EGD WITH BIOPSY (WRVU 2.49) performed by David Dejesus MD at [facility] ??? PRO UPPER GI ENDOSCOPY, DIAGNOSTIC N/A 04/03/2014 EGD, UPPER GI ENDOSCOPY performed by David Dejesus MD at [facility] ??? PRO UPPER GI ENDOSCOPY, DIAGNOSTIC N/A 03/01/2020 EGD, UPPER GI ENDOSCOPY performed by David Dejesus MD at [facility] Social History: Pt was not able [...] Objective: Pt seen for evaluation today in [facility]. Upon arrival, pt lying in bed [...] for this consult. GENE YOUNG, PT Pager: [phone] Physical Therapy Inpatient Rehabilitation Department Time IN / OUT: 2402-6319 Total Time: (P) 40 (([phone])) minutes, GENE YOUNG, PT Pager: [phone] Physical Therapy Inpatient Rehabilitation Department 2016 PT [...] bipolar, DM, EtOH, esophagitis, who presented to [facility] 3 days ago after being found unresponsive [...] was able to discuss plan with provider [facility] [id number]. Current Nutrition Regimen: Active Orders Diet NPO [...] encounter: 69.3 kg (152 lb 12.5 oz). Stevens Body Weight (IBW) (kg): 45.45 Wt Readings [...] up while inpatient Nancy Ernst RD Pager #:[phone] * Moustapha Gallegos MD - 08/24/2022 6:09 [...] & Farrell's esophagus presenting in transfer from [facility], suspected to be in cardiogenic shock and [...] first dose, check VPA level (08/24) - PLAY BACK OPERATOR to evaluate Pulmonary: # Acute hypoxic respiratory [...] scans with [facility]IC for now. Will ask PLAY BACK OPERATOR to reassess and consult PT/OT for mobilization [...] of two midnights or is on the [facility] inpatient only procedure list (status C) due to: decompensated congestive heart failure requiring IV medication and fluid monitoring and acute respiratory compromise and/or hypoxiarequiring assessment every 4 hours and the ability to respond immediately to the patient's needs Milagros Hernandez MD Cardiovascular Medicine Personal Pager [phone] 08/24/2022 2:26 PM * Aileen Mayorga MD [...] Santos, DO ID Fellow Red Team Pager: [phone] ID ATTENDING I agree with assessment and recommendations above. I reviewed the data set and guided decision-making but did not re-examine the patient today. Parris Leyva MD Page [phone] * Neva Tomlin MD - 08/23/2022 7:09 [...] & Farrell's esophagus presenting in transfer from [facility], suspected to be in cardiogenic shock and [...] manage secretions and severedysphagia likely the underlying driver material handler of her multifocal pneumonia. We will remove [...] of two midnights or is on the [facility] inpatient only procedure list (status C) due to: acute myocardial infarction requiring titration of IV medication and fluid monitoring and acute encephalopathy, severe dysphagia. Milagros Hernandez MD Cardiovascular Medicine Personal Pager [phone] 08/23/2022 8:44 PM * Briana Bryant, PLAY BACK OPERATOR - 08/22/2022 12:30 PM EDT Speech Therapy [...] deficiency anemia,??GERD??c/b??esophagitis &??Farrell's esophagus??presenting in transfer from [facility], suspected to be in cardiogenic shock and [...] good candidate for the current oral care records management engineer program taking place on specific units at [facility]. Please use LE oral suction toothbrushes to perform oral care 2-4x daily. Pt will benefit from continued PLAY BACK OPERATOR services while hospitalized Speech Therapy Goals: (To [...] Pt./family are in agreement with treatment plan. PLAY BACK OPERATOR session: 24 min Thank you for this consult with this patient. Please feel free to page me with any questions or concerns. Briana Bryant MA, [facility]-PLAY BACK OPERATOR Pager: [phone] Speech-Language Pathology Inpatient Rehabilitation Medicine * Aileen [...] & Farrell's esophagus presenting in transfer from [facility], suspected to be in cardiogenic shock and [...] troublemanaging her secretions and overtly failed her PLAY BACK OPERATOR evaluation as expected. She is being maintained [...] of two midnights or is on the [facility] inpatient only procedure list (status C) due to: multifocal aspiration pneumoniawith respiratory compromise, altered mental status/ toxic metabolic encephalopathy, severe protein calorie malnutrition, stercoral colitis, acute anemia requiring transfusion. Milagros Hernandez MD Cardiovascular Medicine Personal Pager [phone] 08/22/2022 4:13 PM * Rock Purcell, RT [...] 10/8 21%, alert oriented and following commands. [id number]: SBT Passed on CPAP +5 21%, Pre [...] for Consult? finanacial concerns Social Work Response: TEACHER RESOURCE met with Ishan's , Antonio, and their son to offer support and follow up on social work consult. TEACHER RESOURCE encouraged Antonio to reach out to their Choices for Care liaisonfor questions related to caregiver benefits, including short term disability. TEACHER RESOURCE also provided Antonio with information for Emergency/General Assistance and [place] [phone]. This TEACHER RESOURCE provided contact information for the Office of [...] & Farrell's esophagus presenting in transfer from [facility], suspected to be in cardiogenic shock and [...] PHART 7.56* -- 7.54* 7.51* 7.48* 7.53* KFK1NHR 31* -- 31* 30* 34* 26* PO2ART 92 -- 73* 62* 78* 48* [id number] 27.3* -- 25.7 23.2 25.0 21.2 LACTATEVEN 1.6 1.6 1.2 1.6 1.5 1.3 XHH8GKG 30 -- 30 30 30 21 PFRATIOART2 307 -- 243 207 260 229 VBG (Venous Blood Gas) Recent Labs 08/20/22 0541 08/19/22 1445 08/19/22 0507 08/18/2261408/16/222008 LACTATEVEN 1.6 1.6 1.2 1.6 1.5 Mixed Venous Sat Recent Labs 08/16/22201108/16/22 1558 08/16/22 1211 08/16/22 1117 08/16/22 0948 [id number] 56.6 50.5 56.0 49.3 56.5 Objective: Vitals [...] PHART 7.56* -- 7.54* 7.51* 7.48* 7.53* HAM8CYE 31* -- 31* 30* 34* 26* PO2ART 92 -- 73* 62* 78* 48* YRF2FAQ 27.3* -- 25.7 23.2 25.0 21.2 LACTATEVEN 1.6 1.6 1.2 1.6 1.5 1.3 OPV8EGZ 30 -- 30 30 30 21 PFRATIOART2 307 -- 243 207 260 229 VBG (Venous Blood Gas) Recent Labs 08/20/22 0541 08/19/22 1445 08/19/22 0507 08/18/22 0615 08/16/222008 LACTATEVEN 1.6 1.6 1.2 1.6 1.5 Mixed Venous Sat Recent Labs 08/16/22201108/16/22 1558 08/16/22 1211 08/16/22 1117 08/16/22 0948 Q9VWFT5 56.6 50.5 56.0 49.3 56.5 Microbiology: 08/19, [...] stable. Continue supportive care. Appreciate input from business info consultant services. Attending Attestation and Certification Please [...] of two midnights or is on the [facility] inpatient only procedure list (status C) due to: decompensated congestive heart failure requiring IV medication and fluid monitoring, acute respiratory compromise and/or hypoxia requiring assessment every 4 hours and the ability to respond immediately to the patient's needs, and multifocal pneumonia requiring IV antibiotic therapy. Milagros Hernandez MD Cardiovascular Medicine Personal Pager [phone] 08/21/2022 3:38 PM * Parris Leyva MD [...] Garsia MD Infectious Diseases Fellow- PGY4 Pager: [phone] 08/21/2022 8:14 AM ID ATTENDING I agree [...] should be followed. Parris Leyva MD Page [phone] All of this 35 minute visit were spent on the unit in coordination of care for the patient, regarding treatment of infection as detailed in note above. * Nancy Ernst RD - 08/21/2022 8:10 AM EDT Nutrition Progress Note Ishan Irving is a 62 y.o.??female??with h/o bipolar, DM, EtOH, esophagitis, who presented to [facility] 3 days ago after being found unresponsive [...] was able to discuss plan with provider [facility] 5904. Current Nutrition Regimen: Active Orders Diet [...] encounter: 72.5 kg (159 lb 13.3 oz). Stevens Body Weight (IBW) (kg): 45.45 Wt Readings [...] up while inpatient Nancy Ernst RD Pager #:[phone] * Graciela Mcleod RCP - 08/21/2022 6:09 [...] for Consult? finanacial concerns Social Work Response: TEACHER RESOURCE called Ishan's , Antonio, to offer support. There was no answer, so this music writer left voicemail with contact information. UPDATE: MACY received call back from Ishan's , Antonio, this afternoon. This TEACHER RESOURCE and Antonio plan to meet when he is at the hospital tomorrow to discuss his questions related to disability benefits. Follow Up Needed: Follow for SW support * Alfonso Blackwood MD - 08/20/2022 8:26 AM EDT Critical Care Medicine Staff Progress Note 62 y.o. female with h/o bipolar, DM, EtOH, esophagitis, who presented to [facility] 3 days ago after being found unresponsive at home. Patient found to have likely pneumonia +/- aspiration, newly reduced EF. 24 hr events/subjective: -on beta blockers -afebrile, high WBC -Secretions - moderate -I/Os positive last 24 hours -now following commands. -MRI results reviewed. ASSESSMENT, MANAGEMENT, and DECISION MAKING: Patient is a 62 yo female with h/o bipolar, EtOH who presented to [facility] 08/12 after being found unresponsive by . [...] & Farrell's esophagus presenting in transfer from [facility], suspected to be in cardiogenic shock and [...] PHART 7.56* -- 7.54* 7.51* 7.48* 7.53* EDT1ETP 31* -- 31* 30* 34* 26* PO2ART 92 -- 73* 62* 78* 48* SON9TWS 27.3* -- 25.7 23.2 25.0 21.2 LACTATEVEN 1.6 1.6 1.2 1.6 1.5 1.3 JMY3XLH 30 -- 30 30 30 21 PFRATIOART2 307 -- 243 207 260 229 VBG (Venous Blood Gas) Recent Labs 08/20/22 0541 08/19/22 1445 08/19/22 0507 08/18/2261408/16/222008 LACTATEVEN 1.6 1.6 1.2 1.6 1.5 Mixed Venous Sat Recent Labs 08/16/22 2012 08/16/22 1558 08/16/22 1211 08/16/22 1117 08/16/22 0948 [id number] 56.6 50.5 56.0 49.3 56.5 Objective: Vitals [...] PHART 7.56* -- 7.54* 7.51* 7.48* 7.53* DSU0GTL 31* -- 31* 30* 34* 26* PO2ART 92 -- 73* 62* 78* 48* YDE0TIY 27.3* -- 25.7 23.2 25.0 21.2 LACTATEVEN 1.6 1.6 1.2 1.6 1.5 1.3 IFK5FMR 30 -- 30 30 30 21 PFRATIOART2 307 -- 243 207 260 229 VBG (Venous Blood Gas) Recent Labs 08/20/22 0541 08/19/22 1445 08/19/22 0507 08/18/22 0615 08/16/222008 LACTATEVEN 1.6 1.6 1.2 1.6 1.5 Mixed Venous Sat Recent Labs 08/16/22201108/16/22 1558 08/16/22 1211 08/16/22 1117 08/16/22 0948 Z0UQHY4 56.6 50.5 56.0 49.3 56.5 Microbiology: 08/14, [...] potential sources identified. Low overall suspicion for MODELING INSTRUCTOR infection given recent MRI and improvement in [...] Shashi Young - 08/19/2022 1:25 PM EDT University Librarian Encounter Note Patient Name: Ishan Irving : [id number] MR#: [id number] Admit Date: 08/14/2022 11:11 PM Hospital Day 5 days Narrative: Self initiated visit to patient for Spiritual support in a regular unit rounds. Assessment: Patient is very busy with nurses. Not a good time for Accounts Specialist visit. Intervention and Outcome: An attempted visit [...] for Consult? finanacial concerns Social Work Response: TEACHER RESOURCE attempted to contact Ishan's , Antonio, to offer support. No one picked up, so TEACHER RESOURCE left message with contact information. Follow Up Needed: Follow for continued support. * Neva Erazo PT - 08/19/2022 11:37 AM EDT PT Note Pt remains intubated and not yet approp for PT evaluation. Will follow-up when approp. Neva Erazo PT Pager [phone] * Adeola Russo RCP - 08/19/2022 9:19 [...] bipolar, DM, EtOH, esophagitis, who presented to [facility] 3 days ago after being found unresponsive [...] was able to discuss plan with provider [facility] 5904. Current Nutrition Regimen: Active Orders Diet [...] encounter: 73.1 kg (161 lb 2.5 oz). Stevens Body Weight (IBW) (kg): 45.45 Wt Readings [...] J Parenteral Enteral Nutr. 2012 September; 36(3): 273-74) Nutrition to continue to follow up while inpatient Nancy Ernst RD Pager #:[phone] * Carlos Terry MD - 08/19/2022 8:13 [...] & Farrell's esophagus presenting in transfer from [facility], suspected to be in cardiogenic shock and [...] 1602 PHART 7.54* 7.51* 7.48* 7.53* 7.53* AHU0OJD 31* 30* 34* 26* 30* PO2ART 73* 62* 78* 48* 55* XKM3GST 25.7 23.2 25.0 21.2 24.9 LACTATEVEN 1.2 1.6 1.5 1.3 1.5 XFT1FSN 30 30 30 21 21 PFRATIOART2 243 207 260 229 262 VBG (Venous Blood Gas) Recent Labs 08/19/22 05008/18/2261408/16/22200808/16/22175808/16/22 1602 LACTATEVEN 1.2 1.6 1.5 1.3 1.5 Mixed Venous Sat Recent Labs 08/16/22201108/16/22 1558 08/16/22 1211 08/16/22 1117 08/16/22 0948 T5KWLD7 56.6 50.5 56.0 49.3 56.5 Objective: Vitals [...] 1602 PHART 7.54* 7.51* 7.48* 7.53* 7.53* DSE4EHQ 31* 30* 34* 26* 30* PO2ART 73* 62* 78* 48* 55* LDJ7AYE 25.7 23.2 25.0 21.2 24.9 LACTATEVEN 1.2 1.6 1.5 1.3 1.5 SEA3SXG 30 30 30 21 21 PFRATIOART2 243 207 260 229 262 VBG (Venous Blood Gas) Recent Labs 08/19/22 0507 08/18/22 0615 08/16/22200808/16/22 1759 08/16/22 1602 LACTATEVEN 1.2 1.6 1.5 1.3 1.5 Mixed Venous Sat Recent Labs 08/16/22201108/16/22 1558 08/16/22 1211 08/16/22 1117 08/16/22 0948 N4DHLF7 56.6 50.5 56.0 49.3 56.5 Microbiology: 08/14, [...] from hemodynamic perspective, off dobutamine/pressors and with Aguilar now removed. Still intubated with minimal support, but unfortunately mental status continues to preclude extubation despite sedation now being held for 48 hours. Neurology was consulted yesterday given continued altered mental status, and recommended CTH/EEG. CT Head was unremarkable, and EEG demonstrated findings consistent with toxic metabolic encephalopathy. Will reach out to neurology today regarding possibleneed for MRI vs. MODELING INSTRUCTOR infection workup. Will diurese given net positivity [...] zac Avila MD Internal Medicine, PGY-1 Cardiology [facility] #[id number] Cardiology Staff Addendum ?? Ishan [...] bipolar, DM, EtOH, esophagitis, who presented to [facility] 3 days ago after being found unresponsive at home. Patient found to have likely pneumonia +/- aspiration, newly reduced EF. 24 hr events/subjective: -on beta blockers -afebrile, high WBC -Secretions - moderate -I/Os positive last 24 hours -still not following commands. ASSESSMENT, MANAGEMENT, and DECISION MAKING: Patient is a 62 yo female with h/o bipolar, EtOH who presented to [facility] 08/12 after being found unresponsive by . [...] bipolar, DM, EtOH, esophagitis, who presented to [facility] 3 days ago after being found unresponsive [...] with h/o bipolar, EtOH who presented to [facility] 08/12 after being found unresponsive by . [...] & Farrell's esophagus presenting in transfer from [facility], suspected to be in cardiogenic shock and [...] 1216 PHART 7.51* 7.48* 7.53* 7.53* 7.52* OTR3TEQ 30* 34* 26* 30* 30* PO2ART 62* 78* 48* 55* 59* TBL8BIX 23.2 25.0 21.2 24.9 24.2 LACTATEVEN 1.6 1.5 1.3 1.5 1.8 EWQ8KFB 30 30 21 21 21 PFRATIOART2 207 260 229 262 281 VBG (Venous Blood Gas) Recent Labs 08/18/22 0615 08/16/22200808/16/22175808/16/22 1602 08/16/22 1216 LACTATEVEN 1.6 1.5 1.3 1.5 1.8 Mixed Venous Sat Recent Labs 08/16/22201108/16/22 1558 08/16/22 1211 08/16/22 1117 08/16/22 0948 L4HUGC0 56.6 50.5 56.0 49.3 56.5 PA Catheter [...] 1216 PHART 7.51* 7.48* 7.53* 7.53* 7.52* HRB7OBW 30* 34* 26* 30* 30* PO2ART 62* 78* 48* 55* 59* MMN4WDT 23.2 25.0 21.2 24.9 24.2 LACTATEVEN 1.6 1.5 1.3 1.5 1.8 TMA5THH 30 30 21 21 21 PFRATIOART2 207 260 229 262 281 VBG (Venous Blood Gas) Recent Labs 08/18/22 0615 08/16/22200808/16/22 17508/16/22 1602 08/16/22 1216 LACTATEVEN 1.6 1.5 1.3 1.5 1.8 Mixed Venous Sat Recent Labs 08/16/22201108/16/22 1558 08/16/22 1211 08/16/22 1117 08/16/22 0948 C5ZSWC8 56.6 50.5 56.0 49.3 56.5 Microbiology: 08/14, [...] pressor/inotrope support today and thus will remove Aguilar catheter. She is also on minimal ventilator [...] - Inpatient Alternative Medical Decision Maker: zac Avlia MD Internal Medicine, PGY-1 Cardiology [facility] #[id number] [...] bipolar, DM, EtOH, esophagitis, who presented to [facility] 3 days ago after being found unresponsive [...] was able to discuss plan with provider [facility] 5904. All Active TF Orders: Tubefeeding [...] encounter: 71.9 kg (158 lb 8 oz). Stevens Body Weight: 45.5 kg Usual Body Weight: [...] up while inpatient Nancy Ernst RD Pager #:[phone] * Jigar Cherry RN - 08/17/2022 10:09 [...] bipolar, DM, EtOH, esophagitis, who presented to [facility] 3 days ago after being found unresponsive [...] T/L/D Mcrae 08/15 ETT 08/14 CVL 08/15 [place] 08/15 ASSESSMENT, MANAGEMENT, and DECISION MAKING: Patient is a 62 yo female with h/o bipolar, EtOH who presented to [facility] 08/12 after being found unresponsive by . [...] & Farrell's esophagus presenting in transfer from [facility], suspected to be in cardiogenic shock and [...] 0817 PHART 7.48* 7.53* 7.53* 7.52* 7.46* IOC2YHP 34* 26* 30* 30* 36 PO2ART 78* 48* 55* 59* 68* YPE3WZO 25.0 21.2 24.9 24.2 24.8 LACTATEVEN 1.5 1.3 1.5 1.8 2.2 MYG8SOR 30 21 21 21 21 PFRATIOART2 260 229 262 281 324 VBG (Venous Blood Gas) Recent Labs 08/16/22200808/16/22175808/16/22160108/16/22 1216 08/16/22 0817 LACTATEVEN 1.5 1.3 1.5 1.8 2.2 Mixed Venous Sat Recent Labs 08/16/22201108/16/22 1558 08/16/22 1211 08/16/22 1117 08/16/22 0948 R3YCGJ1 56.6 50.5 56.0 49.3 56.5 PA Catheter [...] 0817 PHART 7.48* 7.53* 7.53* 7.52* 7.46* ZYA7SFQ 34* 26* 30* 30* 36 PO2ART 78* 48* 55* 59* 68* JBN4XFB 25.0 21.2 24.9 24.2 24.8 LACTATEVEN 1.5 1.3 1.5 1.8 2.2 LZV2GSW 30 21 21 21 21 PFRATIOART2 260 229 262 281 324 VBG (Venous Blood Gas) Recent Labs 08/16/22200808/16/22175808/16/22 1602 08/16/22 1216 08/16/22 0817 LACTATEVEN 1.5 1.3 1.5 1.8 2.2 Mixed Venous Sat Recent Labs 08/16/22201108/16/22 1558 08/16/22 1211 08/16/22 1117 08/16/22 0948 T6MXTB2 56.6 50.5 56.0 49.3 56.5 Troponin - [...] with significant improvement in cardiac index. Contacted [facility] this morning, 72hr BCx remain NGTD. However, [...] ?? Carlos Terry MD, MARYAN, FACC, FACP, [facility] Cardiovascular Medicine * Richard Alva, IT INFRASTRUCTURE CONSULTANT - 08/16/2022 10:32 PM EDT AMV Protocol: [...] bipolar, DM, EtOH, esophagitis, who presented to [facility] 3 days ago after being found unresponsive [...] T/L/D Mcrae 08/15 ETT 08/14 CVL 08/15 [place] 08/15 ASSESSMENT, MANAGEMENT, and DECISION MAKING: Patient is a 62 yo female with h/o bipolar, EtOH who presented to [facility] 08/12 after being found unresponsive by . [...] PCP: Chris Stanley APRN PCP phone number: [phone] Date of Admission: 08/14/2022 ( Hospital Day [...] & Farrell's esophagus presenting in transfer from [facility], suspected to be in cardiogenic shock and [...] 1616 PHART 7.46* 7.47* 7.46* 7.44 7.38 GAK3QKK 36 34* 36 30* 36 PO2ART 68* 71* 75* 78* 78* AHM5YXZ 24.8 24.5 24.7 19.7* 20.8 LACTATEVEN 2.2 1.7 2.2 1.6 1.8 RNE7ACZ 21 25 25 25 30 PFRATIOART2 324 284 300 312 260 VBG (Venous Blood Gas) Recent Labs 08/16/22 0817 08/16/2244008/15/22235808/15/22200708/15/22 1616 LACTATEVEN 2.2 1.7 2.2 1.6 1.8 Mixed Venous Sat Recent Labs 08/16/22 0820 08/16/22 0444 08/16/223 08/16/22 0004 08/15/222009 [id number] 48.7 54.2 51.3 46.3 49.8 PA Catheter [...] 1616 PHART 7.46* 7.47* 7.46* 7.44 7.38 KVP1QPI 36 34* 36 30* 36 PO2ART 68* 71* 75* 78* 78* [id number] 24.8 24.5 24.7 19.7* 20.8 LACTATEVEN 2.2 1.7 2.2 1.6 1.8 YKT1PLB 21 25 25 25 30 PFRATIOART2 324 284 300 312 260 VBG (Venous Blood Gas) Recent Labs 08/16/22 0817 08/16/22 04408/15/22235808/15/22200708/15/22 1616 LACTATEVEN 2.2 1.7 2.2 1.6 1.8 Mixed Venous Sat Recent Labs 08/16/22 0820 08/16/22 0444 08/16/22 0213 08/16/22 0004 08/15/222009 [id number] 48.7 54.2 51.3 46.3 49.8 Troponin - [...] with significant improvement in cardiac index. Contacted [facility] this morning, 72hr BCx remain NGTD. However, [...] zac Avila MD Internal Medicine, PGY-1 Cardiology [facility] #[id number] Cardiology Staff Addendum ?? Ishan [...] FACP, FASE Cardiovascular Medicine * Richard Alva, IT INFRASTRUCTURE CONSULTANT - 08/15/2022 9:04 PM EDT AMV Protocol: [...] patient was transferred to the ED at [facility]. Per the patient she was following simple commands while at [facility]. Discussed her current status with the family at the bedside. * Vanessa Escalona MD - 08/15/2022 10:28 AM EDT Critical Care Medicine Staff Progress Note 62 y.o. female with h/o bipolar, DM, EtOH, esophagitis, who presented to [facility] 3 days ago after being found unresponsive [...] heparin, ASA and Lasix. En route to [facility] her pressor requirement increased to include Levophed [...] T/L/D [place] 08/15 ETT 08/14 CVL 08/15 [place] 08/15 ASSESSMENT, MANAGEMENT, and DECISION MAKING: Patient is a 62 yo female with h/o bipolar, EtOH who presented to [facility] 08/12 after being found unresponsive by . [...] PCP: Chris Stanley APRN PCP phone number: [phone] Date of Admission: 08/14/2022 ( Hospital Day [...] & Farrell's esophagus presenting in transfer from [facility], suspected to be in cardiogenic shock and found to be in mixed shock with concern for stress cardiomyopathy. 24 Hour Events/Subjective: Yesterday: -- Overnight: - Aguilar was floated - now off dobutamine and [...] 0531 08/15/2231008/14/222356 PHART -- 7.30* 7.25* 7.25* [id number] -- 41 38 42 PO2ART -- 117* 112* 242* YHM1BZZ -- 19.6* 16.0* 17.9* LACTATEVEN 3.1* 3.6* 1.9 2.6* FKC3RXI -- 40 40 60 PFRATIOART2 -- 292 280 403 VBG (Venous Blood Gas) Recent Labs 08/15/22 0555 08/15/22 0531 08/15/2231008/14/222356 LACTATEVEN 3.1* 3.6* 1.9 2.6* Mixed Venous Sat Recent Labs 08/15/22 0533 08/15/22 0113 [id number] 63.7 63.3 PA Catheter #'s PA Catheter [...] 08/14/22 2357 PHART -- 7.30* 7.25* 7.25* MPJ7KSF -- 41 38 42 PO2ART -- 117* 112* 242* EWT5XMO -- 19.6* 16.0* 17.9* LACTATEVEN 3.1* 3.6* 1.9 2.6* TLC3CKG -- 40 40 60 PFRATIOART2 -- 292 280 403 VBG (Venous Blood Gas) Recent Labs 08/15/22 0555 08/15/22 0531 08/15/22 0311 08/14/22 2357 LACTATEVEN 3.1* 3.6* 1.9 2.6* Mixed Venous Sat Recent Labs 08/15/22 0533 08/15/22 0113 [id number] 63.7 63.3 Troponin HS: 617 at midnight [...] the first few days of hospitalization at [facility]. Will keep her on broad spectrum antibiotics. Will monitor blood cultures obtained here as well as those obtained at [facility] prior to transfer. Her TTE appears to [...] - Abx: Vancomycin & zosyn - Call [facility] in AM to inquire about blood culture [...] of the Day: 23:30 Pt received from [facility] on VC 30 270 +10 60% ARDS [...] alarms set appropriately & audible. NSR on cardiac cath lab radiology technologist. Lungs are clear. Blood sugar 156. G [...] BX performed by David Dejesus MD at [facility] ??? PRO COLONOSCOPY, DIAGNOSTIC N/A 03/01/2020 COLONOSCOPY, DIAGNOSTIC performed by David Dejesus MD at [facility] ??? PRO ENDOSCOPIC US EXAM, ESOPH N/A 03/31/2022 UPPER EUS- ENDOSCOPIC ULTRASOUND performed by David Dejesus MD at [facility] ??? PRO UPPER GI ENDOSCOPY, BIOPSY N/A 04/03/2014 UPPER GASTROINTESTINAL ENDOSCOPY,WITH BIOPSY SINGLE OR MULTIPLE performed by David [facility]jesus MDat [facility] ??? PRO UPPER GI ENDOSCOPY, BIOPSY N/A 03/20/2016 EGD WITH BIOPSY performed by David Dejesus MD at [facility] ??? PRO UPPER GI ENDOSCOPY, BIOPSY N/A 11/22/2018 EGD WITH BIOPSY (WRVU 2.49) performed by David Dejesus MD at [facility] ??? PRO UPPER GI ENDOSCOPY, BIOPSY N/A 03/01/2020 UPPER GASTROINTESTINAL ENDOSCOPY,WITH BIOPSY SINGLE OR MULTIPLE (WRVU 2.49) performed by David Dejesus MD at [facility] ??? PRO UPPER GI ENDOSCOPY, BIOPSY N/A 09/23/2021 EGD WITH BIOPSY (WRVU 2.49) performed by David Dejesus MD at [facility] ??? PRO UPPER GI ENDOSCOPY, BIOPSY N/A 03/31/2022 EGD WITH BIOPSY (WRVU 2.49) performed by David Dejesus MD at [facility] ??? PRO UPPER GI ENDOSCOPY, BIOPSY N/A 07/03/2022 EGD WITH BIOPSY (WRVU 2.49) performed by David Dejesus MD at [facility] ??? PRO UPPER GI ENDOSCOPY, DIAGNOSTIC N/A 04/03/2014 EGD, UPPER GI ENDOSCOPY performed by David Dejesus MD at [facility] ??? PRO UPPER GI ENDOSCOPY, DIAGNOSTIC N/A 03/01/2020 EGD, UPPER GI ENDOSCOPY performed by David Dejesus MD at [facility] Medications: No current facility-administered medications on [...] for dosing. 15 mL 11 ??? Insulin [place], Disposable, (BD INSULIN PEN NEEDLE UF MINI) [...] Roland Pruett MD PCP: Chris Stanley APRN ([phone]) No chief complaint on file. ID: Ishan Irving is a 62 y.o. female w/ PMH of ??recent L femoral neck fracture,??bipolar disorder, resolving medication-induced Parkinsonism, insulin- dependent diabetes mellitus,??hx of alcohol use disorder (reported to be in remission for 1.5 years) c/b chronic pancreatitis, iron deficiency anemia,??GERD??c/b??esophagitis &??Farrell's esophagus, transferred from [facility] to [facility] on 08/14/2022, now on Hospital Day #16, [...] deficiency anemia,?? GERD??c/b??esophagitis &??Farrell's esophagus, admitted to [facility] on 08/14/2022, now on Hospital Day #16, for for mixed shock with concern for stress cardiomyopathy (Takotsubo Cardiomyopathy). Five days prior to initial presentation, patient underwent femoral neck fracture fixation and was discharged home on opioids. Patient was found unresponsive at home and hypoxic to 70s, improved to 90s with NRB mask given by EMS. Was given narcan with minimal response. Brought to [facility] and given additional narcan with no response. OSH Labs prior to transfer to [facility] Cardiology Team: Labs: - ABG: pH 7.43, [...] on diuresis with lasix and transferred to [facility] on 08/14. Patient arrived to [facility] requiring approximately NE30, dobutamine 2.5, and epi 5. Patient was started on goal directed therapy with losartan, metoprolol 25mg daily, spirinolactone 25mg daily, [id number] daily and additionally started on empagliflozin 10mg daily. Patient being followed by PLAY BACK OPERATOR and recommend NPO given significant dysphagia. Patient [...] BX performed by David Dejesus MD at [facility] ??? PRO COLONOSCOPY, DIAGNOSTIC N/A 03/01/2020 COLONOSCOPY, DIAGNOSTIC performed by David Dejesus MD at [facility] ??? PRO ENDOSCOPIC US EXAM, ESOPH N/A 03/31/2022 UPPER EUS- ENDOSCOPIC ULTRASOUND performed by David Dejesus MD at [facility] ??? PRO UPPER GI ENDOSCOPY, BIOPSY N/A 04/03/2014 UPPER GASTROINTESTINAL ENDOSCOPY,WITH BIOPSY SINGLE OR MULTIPLE performed by David Dejesus MDat [facility] ??? PRO UPPER GI ENDOSCOPY, BIOPSY N/A 03/20/2016 EGD WITH BIOPSY performed by David Dejesus MD at [facility] ??? PRO UPPER GI ENDOSCOPY, BIOPSY N/A 11/22/2018 EGD WITH BIOPSY (WRVU 2.49) performed by David Dejesus MD at [facility] ??? PRO UPPER GI ENDOSCOPY, BIOPSY N/A 03/01/2020 UPPER GASTROINTESTINAL ENDOSCOPY,WITH BIOPSY SINGLE OR MULTIPLE (WRVU 2.49) performed by David Dejesus MD at [facility] ??? PRO UPPER GI ENDOSCOPY, BIOPSY N/A 09/23/2021 EGD WITH BIOPSY (WRVU 2.49) performed by David Dejesus MD at [facility] ??? PRO UPPER GI ENDOSCOPY, BIOPSY N/A 03/31/2022 EGD WITH BIOPSY (WRVU 2.49) performed by David Dejesus MD at [facility] ??? PRO UPPER GI ENDOSCOPY, BIOPSY N/A 07/03/2022 EGD WITH BIOPSY (WRVU 2.49) performed by David Dejesus MD at [facility] ??? PRO UPPER GI ENDOSCOPY, DIAGNOSTIC N/A 04/03/2014 EGD, UPPER GI ENDOSCOPY performed by David Dejesus MD at [facility] ??? PRO UPPER GI ENDOSCOPY, DIAGNOSTIC N/A 03/01/2020 EGD, UPPER GI ENDOSCOPY performed by David Dejesus MD at [facility] Social History: Social History Socioeconomic History [...] for dosing. 15 mL 11 ??? Insulin [place], Disposable, (BD INSULIN PEN NEEDLE UF MINI) [...] Gas): No results found for: PHART, PO2ART, QKD7GYT, XHT0JWX VBG (Venous Blood Gas): No results for input(s): PHVEN, HLJ0JWW, PO2VEN, DTR8UEZ, BEVEN, QGP0YLD in the last 72 hours. EKG: Lab [...] who have questions please contact the health animal care taker that requested your imaging first. Electronically signed by: Davi Terry MD, [facility] ([phone]), at 08/15/2022 3:53 AM XR Abdomen 1 view (Generic) (Exam [...] who have questions please contact the health animal care taker that requested your imaging first. Electronically signed by: Liliane Adams MD, [facility] ([phone]), at 08/15/2022 9:05 AM XR Chest One [...] who have questions please contact the health animal care taker that requested your imaging first. Electronically signed by: Davi Terry MD, [facility] ([phone]), at 08/15/2022 3:55 AM XR Abdomen 1 [...] who have questions please contact the health animal care taker that requested your imaging first. Electronically signed by: Davi Terry MD, [facility] ([phone]), at 08/15/2022 6:41 AM XR Chest One [...] who have questions please contact the health animal care taker that requested your imaging first. Electronically signed by: Alfonso Adams MD, [facility] ([phone]), at 08/16/2022 10:[address] Head wo [...] who have questions please contact the health animal care taker that requested your imaging first. Electronically signed by: Moustapha Correa MD, [facility] ([phone]), at 08/16/2022 11:19 PM XR Abdomen 1 [...] who have questions please contact the health animal care taker that requested your imaging first. Head wo Contrast (Generic) (Exam End: 08/18/2022 3:14 PM) Impression No acute intracranial process. Thank you for letting us participate in the care of this patient. If you are a health care provider and have any questions regarding this report, please contact the number below. For patients who have questions please contact the health animal care taker that requested your imaging first. Electronically signed by: Antonio Jordan MD, [facility] ([phone]), at 08/18/2022 3:18 PM XR Chest One [...] who have questions please contact the health animal care taker that requested your imaging first. Electronically signed by: Alan De Guzman MD, [facility] ([phone]), at 08/19/2022 3:14 PM MRI Brain wo Contrast (Exam End: 08/19/2022 10:15 PM) Impression No acute infarction, mass or mass effect. Thank you for letting us participate in the care of this patient. If you are a health care provider and have any questions regarding this report, please contact the number below. For patients who have questions please contact the health animal care taker that requested your imaging first. Electronically signed by: Jagdeep Lee MD, [facility] ([phone]), at 08/20/2022 3:34 AM XR Chest for [...] who have questions please contact the health animal care taker that requested your imaging first. Electronically signed by: Alan De Guzman MD, [facility] ([phone]), at 08/19/2022 4:[address] Hip w [...] who have questions please contact the health animal care taker that requested your imaging first. Electronically signed by: Aicha Chowdhury MD, [facility] ([phone]), at 08/21/2022 9:[address] Chest w [...] who have questions please contact the health animal care taker that requested your imaging first. Electronically signed by: Jagdeep Lee MD, [facility] ([phone]), at 08/21/2022 6:56 AM XR Hip 2-3 Views Left (Exam End: 08/22/2022 12:19 AM) Impression No radiographic evidence of infection. Thank you for letting us participate in the care of this patient. If you are a health care provider and have any questions regarding this report, please contact the number below. For patients who have questions please contact the health animal care taker that requested your imaging first. Electronically signed by: Viktor Cervantes MD, [facility] ([phone]), at 08/22/2022 12:43 PM XR Pelvis (Generic) (Exam End: 08/22/2022 12:19 AM) Impression No radiographic evidence of infection status post left hip ORIF. Thank you for letting us participate in the care of this patient. If you are a health care provider and have any questions regarding this report, please contact the number below. For patients who have questions please contact the health animal care taker that requested your imaging first. Electronically signed by: Richard Billings MD, [facility] ([phone]), at 08/22/2022 10:[address] Angiogram Coronary [...] who have questions please contact the health animal care taker that requested your imaging first. Electronically signed by: Arlette Mays MD, [facility] ([phone]), at 08/27/2022 11:[address] Chest wo Contrast (Generic) (Exam End: 08/27/2022 8:58 AM) Impression Stable findings of multifocal pneumonia. No interval abnormality. Thank you for letting us participate in the care of this patient. If you are a health care provider and have any questions regarding this report, please contact the number below. For patients who have questions please contact the health animal care taker that requested your imaging first. Electronically signed by: MINH QUIROGA MD, [facility] ([phone]), at 08/27/2022 10:48 AM Medications: Scheduled: ??? [...] fracture s/p surgical fixation , admitted to [facility] on 08/14/2022, now on Hospital Day #16, [...] level 08/29. - level 25mg/L 08/29 - PLAY BACK OPERATOR to evaluate. - Reach out to neurology, [...] Internal Medicine PGY1 Medicine Team: Vega, Pager #[phone] Date: 08/30/2022 Associated attestation - Alfonso Navarrete MD - 08/30/2022 9:19 PM EDT [address] Medicine Service Attending Documentation I certify [...] -continue tube feeds via DHT -plan for PLAY BACK OPERATOR evaluation and MBS tomorrow #stress cardiomyopathy -holding [...] for dosing. 15 mL 11 ??? Insulin [place], Disposable, (BD INSULIN PEN NEEDLE UF MINI) [...] BX performed by David Dejesus MD at [facility] ??? PRO COLONOSCOPY, DIAGNOSTIC N/A 03/01/2020 COLONOSCOPY, DIAGNOSTIC performed by David Dejesus MD at [facility] ??? PRO ENDOSCOPIC US EXAM, ESOPH N/A 03/31/2022 UPPER EUS- ENDOSCOPIC ULTRASOUND performed by David Dejesus MD at [facility] ??? PRO UPPER GI ENDOSCOPY, BIOPSY N/A 04/03/2014 UPPER GASTROINTESTINAL ENDOSCOPY,WITH BIOPSY SINGLE OR MULTIPLE performed by David Dejesus MDat [facility] ??? PRO UPPER GI ENDOSCOPY, BIOPSY N/A 03/20/2016 EGD WITH BIOPSY performed by David Dejesus MD at [facility] ??? PRO UPPER GI ENDOSCOPY, BIOPSY N/A 11/22/2018 EGD WITH BIOPSY (WRVU 2.49) performed by David Dejesus MD at [facility] ??? PRO UPPER GI ENDOSCOPY, BIOPSY N/A 03/01/2020 UPPER GASTROINTESTINAL ENDOSCOPY,WITH BIOPSY SINGLE OR MULTIPLE (WRVU 2.49) performed by David Dejesus MD at [facility] ??? PRO UPPER GI ENDOSCOPY, BIOPSY N/A 09/23/2021 EGD WITH BIOPSY (WRVU 2.49) performed by David Dejesus MD at [facility] ??? PRO UPPER GI ENDOSCOPY, BIOPSY N/A 03/31/2022 EGD WITH BIOPSY (WRVU 2.49) performed by David Dejesus MD at [facility] ??? PRO UPPER GI ENDOSCOPY, BIOPSY N/A 07/03/2022 EGD WITH BIOPSY (WRVU 2.49) performed by David Dejesus MD at [facility] ??? PRO UPPER GI ENDOSCOPY, DIAGNOSTIC N/A 04/03/2014 EGD, UPPER GI ENDOSCOPY performed by David Dejesus MD at [facility] ??? PRO UPPER GI ENDOSCOPY, DIAGNOSTIC N/A 03/01/2020 EGD, UPPER GI ENDOSCOPY performed by David Dejesus MD at [facility] Social History and Habits: Social History [...] PCP: Chris Stanley APRN PCP phone number: [phone] Date of Admission: 08/14/2022 ( Hospital Day [...] & Farrell's esophagus presenting in transfer from [facility], suspected to be in cardiogenic shock. Ms. [...] escalated to 4L NC. On arrival to [facility], the patient was given further doses of [...] (solumedrol -> hydrocortisone) as well as lorazepam CINE scale for potential alcohol withdrawal. However, over [...] (80 lasix) & dobutamine withconsequent transfer to [facility]. On arrival, the patient was requiring requiring [...] to touch. Neuro: RASS -5 Lines/Drains/Airways Lines: Aguilar, A line, central line EKG (08/15/22): Sinus [...] in the last 7068 hours. Invalid input(s): [id number] No results for input(s): POCGLU in the last 168 hours. Heme No results for input(s): LDH, HAPTOGLOBIN, URICACID in the last 168 hours. ABG (Arterial Blood Gas) No results found for: PHART, PO2ART, QKM9RRA, JNB6LCZ Microbiology: Microbiology Results (Last 30 days) No [...] - Abx: Vancomycin & zosyn - Call [facility] in AM to inquire about blood culture [...] admission. Carlos Terry MD, MARYAN, FACC, FACP, [facility] Cardiovascular Medicine documented in this encounter [...] sterile barriertechnique was used throughout. A 4 Polish glide catheter was placed as a nasoenteric [...] a suspected line-associated infection. Location of Procedure: [facility] Risks and Benefits: The risks and [...] to the planned procedure. Hand Hygiene: The golf course laborer did perform hand hygiene prior to line insertion. Catheter type: PICC Lot number: [id number] Procedure Technique: Skin was prepped with chlorhexidine. [...] EEG ROUTINE - PROCDOC Pre-Procedure Diagnose(s): Encephalopathy [facility] Department of Neurology Inpatient Routine EEG Report [...] bipolar, DM, EtOH, esophagitis, who presented to [facility] 3 days ago after being found unresponsive at home. Patient found to have likely pneumonia +/- aspiration, newly reduced EF. Patient not on any sedation, not waking up. MEDICATIONS: -Depakote 500 mg x1 dose -Fentanyl gtt stopped 08/17 -Propofol gtt stopped 08/17 PRIOR EEG(s): -N/A METHODS: A 21 channel digitized electroencephalogram was performed in the [facility] Clinical Neurophysiology Laboratory. The 10/20 international system of electrode placement was used and bipolar and referential electrode montages were recorded. In addition to EEG the patient was monitored for EKGand lateral/vertical eye movements. Video was recorded during the session. UNIFORM CAP OPERATOR'S REPORT: Performed by: Glendy MARCUS Patient was [...] final interpretation as written. Tyree Martin MD [facility] Epilepsy [facility] Department of Neurology * [...] follow. Cedric Gilbert MD Epilepsy Fellow P. [phone] * Jesenia Mejía MD - 08/15/2022 12:47 AM EDT Pulmonary Arterial Line Placement Procedure Note Indications: Catheter placed for diagnosis and treatment of instability. This insertion was not to replace a malfunctioning catheter. This insertion was not due to a suspected line-associated infection. Location of Procedure: [facility] Risks and Benefits: The risks and [...] to the planned procedure. Hand Hygiene: The golf course laborer did perform hand hygiene prior to line insertion. Procedure Details: Insertion Site:internal jugular side:right Confirmation of Venous Placement: Venous placement was confirmed by transducing the pressure. Introducer Insertion Attempts: 1 Comments: See separate note Floating the Aguilar-Isabelle Catheter Attempts: 1 Sterile Dressing: CHG Impregnated [...] to the planned procedure. Hand Hygiene: The golf course laborer did perform hand hygiene prior to arterial [...] anticipated to discharge home with family with [facility] and 24/7 care 09/25/22. Medical team has cleared Ishan to return home with [facility]. Patient will discharge with [facility] with a SOC 09/26/22. [facility] has done education on administration of tube feeds and has stated they did well. Delivery of formulas was done 09/24/22 at 1700. Needs for Transition of Care: Plan for discharge is: Home w/ Services Outpatient Agency/Support Group Needs: None Home Health Services: Occupational Therapy, Physical Therapy, Medication checks, Registered Nurse, Home Health Aide, Clinical Reviewer Agency Referrals & Follow-up Care: Contact information for follow-up Infusion Therapy, [address] [address] [facility], [place] [address] [place] [address] Transportation: ambulance family or friend will provide [...] in agreement with plan. Ashlee Miramontes RN [phone] Pager [phone] * Plan of Care - Leann Harding [...] plan for patient to discharge 09/26/22 with [facility] and24/ care. Plan for [facility] to [...] and family prefer to discharge home with [facility] and30/11 care. Medical team is aware of patient and family preference. [facility] Transportation: ambulance vs family Barriers to discharge: Discharge planning Supports: Caregiver support Financial: LTC Medicaid *Submitted 09/14 Plan going forward: Care Management will continue to follow and assist with discharge planning and coordination of care as indicated. Anticipated Date of Discharge: 09/25/2022 Ashlee Miramontes RN [phone] Pager [phone] * Plan of Care - Leann Harding [...] RW. BG monitored and insulin coverage per [facility] orders ?? PLAN MOVING FORWARD Tube feeding [...] to Ishan regarding discharge planning. RUPAL and recording clerk attempted to give education on importance of utilizing rehab to ensure a safe discharge home. Patient is adamantly refusing rehab at this time. Medical team is aware of family wishes. Ashlee Miramontes RN, CM [phone] Pager [phone] ADDENDUM 1343: Message received from Antonio anaya, expressing extreme frustration regarding needfor rehab before returning home. Family preference is for Ishan to return home with [facility] despite therapy recommendations for rehab. nAtonio requesting a return call from RUPAL and . has been notified. RUPAL left a message with and is currently awaiting a return call. Referrals submitted per Antonio anaya's request. The Fishing Vessel Mate, Antonio anaya has been provided a list of Home Health Agencies/DME vendors which serve their preferred geographic area. A letter describing our affiliations was reviewed with them and they were educated about their right to choose where referrals are placed. CM Provided patient with [facility] Star Quality Rating for Home care hand out. Patient requests referral to : [facility] [address] [place] [address] Expected date of discharge: 09/25/22. Referral routed to the Maintenance And Engineering Manager for matching with agency/vendor and to provide any required information. New Tube Feeds: [facility] [address] [facility] , [place] [address] Toll Free: Nursing Pharmacy Ashlee Miramontes RN [phone] Pager [phone] * Plan of Care - Radha Lockett [...] Referral Placed: 09/10/2022 Last Physical Therapy Recommendation: group home facility with to be determined Last Occupational Therapy Recommendation: acute rehabilitation facility with to be determined Plan for discharge is: Senior Care Facility / Swing Outpatient Agency/Support Group Needs: None Agency Referrals: Diane - pending decision [facility] - declined, no payer source. Ongoing discussion regarding possible contract. Tawanda Moreno - pending response ?? Transportation: ambulance Barriers to discharge: Discharge planning Supports: Caregiver support Financial: LTC Medicaid *Submitted 09/14 Plan going forward: Care Management will continue to follow and assist with discharge planning and coordination of care as indicated. Anticipated Date of Discharge: 09/21/2022 Ashlee Miramontes RN [phone] Pager [phone] * Plan of Care - Ama Mckoy [...] HOB higher than 30 degrees) Use a LOAG chair cushion beneath patient at all times [...] Please contact KHADRA LOU RN on pager [phone] or the wound care team at [phone] or pager [phone] with skin and wound care concerns or [...] Referral Placed: 09/10/2022 Last Physical Therapy Recommendation: group home facility with to be determined Last Occupational Therapy Recommendation: acute rehabilitation facility with to be determined Plan for discharge is: Senior Care Facility / Swing Outpatient Agency/Support Group Needs: None Agency Referrals: [place] - pending decision [facility] - declined, no payer source. Ongoing discussion regarding possible contract. [facility] [place] - pending response Transportation: ambulance Barriers to discharge: Discharge planning Supports: Caregiver support Financial: [facility] Medicaid *Submitted 09/14 Plan going forward: G-tube successfully placed 09/11, patient tolerating tube feeds at this time. Remains NPO. She is s/p ORIF for left femur fracture, currently requiring 2 assist FWW/gait belt for mobility. [place] [facility] Medicaid application has been submitted 09/14. Care Management will continue to follow and assist with discharge planning and coordination of care as indicated. Anticipated Date of Discharge: 09/18/2022 Marybeth Shelley RN, BSN Internal Medicine Doctor - Medicine Office of Care Management Office: Pager: [phone] * Plan of Care - Ama Mckoy [...] vs home w services Pending insurance for long-term medicaid Gastric retention band removal INDIVIDUALIZED FALL [...] vs home w/services Insurance pending for medicaid terminal operations supervisor care. INDIVIDUALIZED FALL PREVENTION INTERVENTIONS: Patient-specific fall [...] at this time. D5LR in place, infusing [id number]. Plan for IR to place G- tube around 1500. Speech and Precipitator Supervisor to floor, deferred assessment at that time [...] There is delayed elevation of the larynx long-term between the vallecula and piriform sinuses. It [...] BX performed by David Dejesus MD at [facility] ??? PRO COLONOSCOPY, DIAGNOSTIC N/A 03/01/2020 COLONOSCOPY, DIAGNOSTIC performed by David Dejesus MD at [facility] ??? PRO ENDOSCOPIC US EXAM, ESOPH N/A 03/31/2022 UPPER EUS- ENDOSCOPIC ULTRASOUND performed by David Dejesus MD at [facility] ??? PRO UPPER GI ENDOSCOPY, BIOPSY N/A 04/03/2014 UPPER GASTROINTESTINAL ENDOSCOPY,WITH BIOPSY SINGLE OR MULTIPLE performed by David Dejesus MDat [facility] ??? PRO UPPER GI ENDOSCOPY, BIOPSY N/A 03/20/2016 EGD WITH BIOPSY performed by David Dejesus MD at [facility] ??? PRO UPPER GI ENDOSCOPY, BIOPSY N/A 11/22/2018 EGD WITH BIOPSY (WRVU 2.49) performed by David Dejesus MD at [facility] ??? PRO UPPER GI ENDOSCOPY, BIOPSY N/A 03/01/2020 UPPER GASTROINTESTINAL ENDOSCOPY,WITH BIOPSY SINGLE OR MULTIPLE (WRVU 2.49) performed by David Dejesus MD at [facility] ??? PRO UPPER GI ENDOSCOPY, BIOPSY N/A 09/23/2021 EGD WITH BIOPSY (WRVU 2.49) performed by David Dejesus MD at [facility] ??? PRO UPPER GI ENDOSCOPY, BIOPSY N/A 03/31/2022 EGD WITH BIOPSY (WRVU 2.49) performed by David Dejesus MD at [facility] ??? PRO UPPER GI ENDOSCOPY, BIOPSY N/A 07/03/2022 EGD WITH BIOPSY (WRVU 2.49) performed by David Dejesus MD at [facility] ??? PRO UPPER GI ENDOSCOPY, DIAGNOSTIC N/A 04/03/2014 EGD, UPPER GI ENDOSCOPY performed by David Dejesus MD at [facility] ??? PRO UPPER GI ENDOSCOPY, DIAGNOSTIC N/A 03/01/2020 EGD, UPPER GI ENDOSCOPY performed by David Dejesus MD at [facility] SOCIAL HX: Social History Socioeconomic History [...] for dosing. 15 mL 11 ??? Insulin [place], Disposable, (BD INSULIN PEN NEEDLE UF MINI) [...] who have questions please contact the health animal care taker that requested your imaging first. Electronically signed by: Camille Garcia MD, [facility] ([phone]), at 09/10/2022 1:16 AM XR Chest One View Final Result 1. Reposition enteric tube now extending below the diaphragm and included [id number]. 2. Similar appearance of elevated right hemidiaphragm and linear/patchy bibasilar opacities which may represent atelectasis or possibly aspiration. Thank you for letting us participate in the care of this patient. If you are a health care provider and have any questions regarding this report, please contact the number below. For patients who have questions please contact the health animal care taker that requested your imaging first. Electronically signed by: AUDI PERDOMO MD, [facility] ([phone]), at 09/05/2022 3:43 PM XR Abdomen 1 [...] who have questions please contact the health animal care taker that requested your imaging first. Electronically signed by: Jagdeep Lee MD, [facility] ([phone]), at 09/04/2022 10:35 PM XR Chest One [...] who have questions please contact the health animal care taker that requested your imaging first. Electronically signed by: Jagdeep Lee MD, [facility] ([phone]), at 09/04/2022 10:35 PM XR Fluoro Barium [...] who have questions please contact the health animal care taker that requested your imaging first. Electronically signed by: Alfonso Adams MD, [facility] ([phone]), at 09/04/2022 10:57 AM XR Fluoro Barium [...] who have questions please contact the health animal care taker that requested your imaging first. Electronically signed by: Aron Billings MD, [facility] ([phone]), at 08/31/2022 12:[address] Angiogram Coronary [...] who have questions please contact the health animal care taker that requested your imaging first. Electronically signed by: Arlette Mays MD, [facility] ([phone]), at 08/27/2022 11:[address] Chest wo Contrast (Generic) Final Result Stable findings of multifocal pneumonia. No interval abnormality. Thank you for letting us participate in the care of this patient. If you are a health care provider and have any questions regarding this report, please contact the number below. For patients who have questions please contact the health animal care taker that requested your imaging first. Electronically signed by: MINH QUIROGA MD, [facility] ([phone]), at 08/27/2022 10:48 AM XR Hip 2-3 Views Left Final Result No radiographic evidence of infection. Thank you for letting us participate in the care of this patient. If you are a health care provider and have any questions regarding this report, please contact the number below. For patients who have questions please contact the health animal care taker that requested your imaging first. Electronically signed by: Viktor Cervantes MD, [facility] ([phone]), at 08/22/2022 12:43 PM XR Pelvis (Generic) Final Result No radiographic evidence of infection status post left hip ORIF. Thank you for letting us participate in the care of this patient. If you are a health care provider and have any questions regarding this report, please contact the number below. For patients who have questions please contact the health animal care taker that requested your imaging first. Electronically signed by: Richard Billings MD, [facility] ([phone]), at 08/22/2022 10:[address] Hip w [...] who have questions please contact the health animal care taker that requested your imaging first. Electronically signed by: Aicha Chowdhury MD, [facility] ([phone]), at 08/21/2022 9:[address] Chest w [...] who have questions please contact the health animal care taker that requested your imaging first. Electronically signed by: Jagdeep Lee MD, [facility] ([phone]), at 08/21/2022 6:56 AM MRI Brain wo Contrast Final Result No acute infarction, mass or mass effect. Thank you for letting us participate in the care of this patient. If you are a health care provider and have any questions regarding this report, please contact the number below. For patients who have questions please contact the health animal care taker that requested your imaging first. Electronically signed by: Jagdeep Lee MD, [facility] ([phone]), at 08/20/2022 3:34 AM XR Chest for [...] who have questions please contact the health animal care taker that requested your imaging first. Electronically signed by: Alan De Guzman MD, [facility] ([phone]), at 08/19/2022 4:39 PM XR Chest One [...] who have questions please contact the health animal care taker that requested your imaging first. Electronically signed by: Alan De Guzman MD, [facility] ([phone]), at 08/19/2022 3:[address] Head wo Contrast (Generic) Final Result No acute intracranial process. Thank you for letting us participate in the care of this patient. If you are a health care provider and have any questions regarding this report, please contact the number below. For patients who have questions please contact the health animal care taker that requested your imaging first. Electronically signed by: Antonio Jordan MD, [facility] ([phone]), at 08/18/2022 3:18 PM XR Abdomen 1 [...] who have questions please contact the health animal care taker that requested your imaging first. Head wo Contrast (Generic) Final Result No acute intracranial abnormality and no change from prior Thank you for letting us participate in the care of this patient. If you are a health care provider and have any questions regarding this report, please contact the number below. For patients who have questions please contact the health animal care taker that requested your imaging first. Electronically signed by: Moustapha Correa MD, [facility] ([phone]), at 08/16/2022 11:19 PM XR Chest One [...] who have questions please contact the health animal care taker that requested your imaging first. Electronically signed by: Alfonso Adams MD, [facility] ([phone]), at 08/16/2022 10:56 AM XR Abdomen 1 [...] who have questions please contact the health animal care taker that requested your imaging first. Electronically signed by: Liliane Adams MD, [facility] ([phone]), at 08/15/2022 9:05 AM XR Abdomen 1 [...] who have questions please contact the health animal care taker that requested your imaging first. Electronically signed by: Davi Terry MD, [facility] ([phone]), at 08/15/2022 6:41 AM XR Chest One View Final Result [...] who have questions please contact the health animal care taker that requested your imaging first. Electronically signed by: Davi Terry MD, [facility] ([phone]), at 08/15/2022 3:55 AM XR Chest One [...] who have questions please contact the health animal care taker that requested your imaging first. Electronically signed by: Davi Terry MD, [facility] ([phone]), at 08/15/2022 3:53 AM Film Library- Storage [...] re-engaged. Discussed and seen with her outpatient watch assembly inspector, Dr. Dejesus. Agree with placement of PEGw/IR [...] Russ MD - 09/10/2022 12:40 AM EDT [facility] Operative Note Name: Ishan Irving : 1960 Date of surgery: 09/10/2022 Surgeon: Audi Russ MD drilling assistant: Ede De Dios MD Preoperative dx: Need for terminal operations supervisor enteral feeding access due to inability to take PO Postoperative dx: Esophageal stricture Procedure: Esophagoscopy Indication: This is an 62 y.o. year old female with a PMHx of L femoral neck fracture,??bipolar disorder with catatonic episodes, resolving medication- induced Parkinsonism, IDDM,??h/o alcoholism and chronic pancreatitis, iron deficiency anemia,??and GERD??c/b??esophagitis &??Farrell's esophagus. She was admitted to [facility] on 08/14/2022 with mixed shock and stress [...] to be determined Plan for discharge is: Senior Care Facility / Swing Outpatient Agency/Support Group Needs: [...] of Discharge: 09/10/2022 Marybeth Shelley RN, BSN Internal Medicine Doctor - Medicine Office of Care Management Office: Pager: [phone] * Plan of Care - Mac Mcmillan [...] visiting. Patient does have transfer orders, charge weigher notified of patient's and her husbands request to transfer to a floor. Tube feeds continued through DHT, patient reports feeling of fullness, then later had multiple episiodes of nausea and vomiting. PRN zofran given, and orders received for PRN compazine as well; pipe fitter supervisor maintenance aware and tube feeding orders adjusted. External [...] Assumed care of pt @ 0100 from [facility]. A&Ox4, VSS on 2 L NC. TF restarted per orders in [facility], turned off per MD verbal order at 0600. Intermittent cough nonproductive, no S/S of aspiration. Externalcath in place, incontinence care provided PRN. Left hip incision LUMBER PILER, CDI, steri strips intact. C/oleft hip pain, [...] RD??c/b??esophagitis &??Farrell's esophagus, who was admitted to [facility] on 08/14/2022 (now on Hospital Day #21), [...] BX performed by David Dejesus MD at [facility] ??? PRO COLONOSCOPY, DIAGNOSTIC N/A 03/01/2020 COLONOSCOPY, DIAGNOSTIC performed by David Dejesus MD at [facility] ??? PRO ENDOSCOPIC US EXAM, ESOPH N/A 03/31/2022 UPPER EUS- ENDOSCOPIC ULTRASOUND performed by David Dejesus MD at [facility] ??? PRO UPPER GI ENDOSCOPY, BIOPSY N/A 04/03/2014 UPPER GASTROINTESTINAL ENDOSCOPY,WITH BIOPSY SINGLE OR MULTIPLE performed by David Dejesus MDat [facility] ??? PRO UPPER GI ENDOSCOPY, BIOPSY N/A 03/20/2016 EGD WITH BIOPSY performed by David Dejesus MD at [facility] ??? PRO UPPER GI ENDOSCOPY, BIOPSY N/A 11/22/2018 EGD WITH BIOPSY (WRVU 2.49) performed by David Dejesus MD at [facility] ??? PRO UPPER GI ENDOSCOPY, BIOPSY N/A 03/01/2020 UPPER GASTROINTESTINAL ENDOSCOPY,WITH BIOPSY SINGLE OR MULTIPLE (WRVU 2.49) performed by David Dejesus MD at [facility] ??? PRO UPPER GI ENDOSCOPY, BIOPSY N/A 09/23/2021 EGD WITH BIOPSY (WRVU 2.49) performed by David Dejesus MD at [facility] ??? PRO UPPER GI ENDOSCOPY, BIOPSY N/A 03/31/2022 EGD WITH BIOPSY (WRVU 2.49) performed by David Dejesus MD at [facility] ??? PRO UPPER GI ENDOSCOPY, BIOPSY N/A 07/03/2022 EGD WITH BIOPSY (WRVU 2.49) performed by David Dejesus MD at [facility] ??? PRO UPPER GI ENDOSCOPY, DIAGNOSTIC N/A 04/03/2014 EGD, UPPER GI ENDOSCOPY performed by David Dejesus MD at [facility] ??? PRO UPPER GI ENDOSCOPY, DIAGNOSTIC N/A 03/01/2020 EGD, UPPER GI ENDOSCOPY performed by David Dejesus MD at [facility] Medications: Current Facility-Administered Medications: ??? barium [...] 1-4 Units, Subcutaneous, Q4H LAZARUS, Elsie Erickson, SUPERINTENDENT COLLIERY ??? [START ON 09/05/2022] insulin glargine-ygfn (Semglee) (100 unit/mL) subcutaneous injection vial 7 Units, 7 Units, Subcutaneous, Daily, Elsie Erickson, SUPERINTENDENT COLLIERY ??? LORazepam (Ativan) (2 mg/mL) injection 0.3 [...] mEq, Intravenous, Q1H PRN, Stopped at 08/21/22 0535 OR potassium chloride 20 mEq in sterile [...] for dosing. 15 mL 11 ??? Insulin [place], Disposable, (BD INSULIN PEN NEEDLE UF MINI) [...] flow sheets for I&O. L Leg incision DANIELA, well approximated with no drainage. PT worked [...] saw and discussed the recent MBS and PLAY BACK OPERATOR concerns. Based on Ishan's history, we know [...] MD aware. Up to commode with OT, PLAY BACK OPERATOR consulted. NGT maintained per protocol. Q2 turns maintained. PRN Zofran given X1. See flow sheetsfor I&O. L. Hip incision CDI- LUMBER PILER with steri-strips in place. Spouse at bedside, [...] Last Occupational Therapy Recommendation: acute rehabilitation facility, group home facility with to be determined Plan for discharge is: Senior Care Facility / Swing Outpatient Agency/Support Group Needs: None Agency Referrals: Based on discussions with the multi-disciplinary healthcare team, the patient would benefit from SNF level of care at discharge. I have met with the insurance follow up representative to: ?? discuss discharge planning needs. ?? provide the [facility], Office of Care Management letter from the [facility] pertaining to rehabreferrals. ?? provide a letter describing our affiliations within the [facility] and educate about their right to choose where referrals are sent. ?? provide the CMS Star Quality Rating handout. ?? review the different levels of rehab including SNF, swing, and acute. ?? provide a list of facilities within their preferred geographic area. ?? request that they provide at least three choices for referral. They have requested referrals to: [facility] [address] [place] [address] [facility] ([facility] [address] [place] [address] [facility] [address] [place] [address] Does patient have COVID vaccine card: Yes; Copy obtained: No Note routed to a Maintenance And Engineering Manager who will communicate referrals to facilities and [...] of Discharge: 09/07/2022 Marybeth Shelley RN, BSN Internal Medicine Doctor - Medicine Office of Care Management Office: Pager: [phone] * Consult Note - Aicha Mckeon MD [...] this assessment. Recommendations were communicated to primary team supervisor. Aicha Mckeon MD 09/03/2022 Coding Determination 1. [...] Minimal/Low [] Low [] Minimal/Low [] Low 86461 [] Moderate [x] Moderate [] Moderate [] Moderate 25244 [x] High [] High [x] High [x] High 94580 Final Coding Determination: High Associated attestation - Keenan Rey MD - 09/18/2022 1:06 PM EDT Psychiatry Attending Note I discussed this patient's situation with the resident but did not see the patient. I contributed to the formulation and treatment planning as documented in the resident's note. Keenan Rey MD Psychiatry Consultation Pager: [phone] * Consult Note - Ghulam Torres MD [...] ever since. Ishan moved out here to [place] to be with Antonio from [place]. They have 2boys together (Estiven 23 in [employer] Management System Operator; and Richard 19 studying at [employer] [[email or web address]] in politics economics). They are so proud [...] Strengths: Family Sara or spirituality As above. Harvey family. 2 sons Richard and Estiven. Self describe recovering Catholics with a smile. Will engage University Librarian for prayers of healing and support alongside [...] Rehab rojelio # Healing arts engaged # University Librarian referral made # Pet Therapy if they [...] with the patient, counseling with the patient's careers adviser(s), coordination with the consulting service, coordination with [...] bedside. They've been 25 years. Met on [employer] online 25 years ago. He went onto a chat group, made a lot of jokes and Ishan private messaged him. It's been love ever since. Ishan moved out here to [place] to be with Antonio from [place]. They have 2boys together (Estiven 23 in [employer] Operator; and Richard 19 studying at [employer] [[email or web address]] in politics economics). They are so proud [...] Strengths: Family Sara or spirituality As above. Harvey family. 2 sons Richard and Estiven. Self describe recovering Catholics with a smile. Will engage University Librarian for prayers of healing and support alongside [...] Rehab rojelio # Healing arts engaged # University Librarian referral made # Pet Therapy if they [...] soft and slowed. ?? Language: fluent in sinhala and without paraphasic errors ?? Mood: I [...] this assessment. Recommendations were communicated to primary team supervisor. Aicha Mckeon MD 09/02/2022 Coding Determination 1. [...] Minimal/Low [] Low [] Minimal/Low [] Low 28651 [] Moderate [x] Moderate [] Moderate [] Moderate 79060 [x] High [] High [x] High [x] High 49772 Final Coding Determination: High Associated attestation - Keenan Rey MD - 09/18/2022 1:05 PM EDT Psychiatry Attending Note I discussed this patient's situation with the resident but did not see the patient. I contributed to the formulation and treatment planning as documented in the resident's note. Keenan Rey MD Psychiatry Consultation Pager: [phone] * Consult Note - Dipak Chiang RN [...] tube feeding Intake (%): 0% Current bed: [facility] Assessment:Patient appears with fungal rash at [...] HOB higher than 30 degrees) Use a LOAG chair cushion beneath patient at all times [...] Dipak Chiang RN on secure chat, pager [phone] or the wound care team at [phone] or pager [phone] with skin and wound care concerns or [...] (2-assist currently) andis not yet cleared by PLAY BACK OPERATOR for diet. Of note, neurology was involved [...] 20 years ago when she lived in [place]. Problem List: Patient Active Problem List Diagnosis [...] BX performed by David Dejesus MD at [facility] ??? PRO COLONOSCOPY, DIAGNOSTIC N/A 03/01/2020 COLONOSCOPY, DIAGNOSTIC performed by David Dejesus MD at [facility] ??? PRO ENDOSCOPIC US EXAM, ESOPH N/A 03/31/2022 UPPER EUS- ENDOSCOPIC ULTRASOUND performed by David Dejesus MD at [facility] ??? PRO UPPER GI ENDOSCOPY, BIOPSY N/A 04/03/2014 UPPER GASTROINTESTINAL ENDOSCOPY,WITH BIOPSY SINGLE OR MULTIPLE performed by David Dejesus MDat [facility] ??? PRO UPPER GI ENDOSCOPY, BIOPSY N/A 03/20/2016 EGD WITH BIOPSY performed by David Dejesus MD at [facility] ??? PRO UPPER GI ENDOSCOPY, BIOPSY N/A 11/22/2018 EGD WITH BIOPSY (WRVU 2.49) performed by David Dejesus MD at [facility] ??? PRO UPPER GI ENDOSCOPY, BIOPSY N/A 03/01/2020 UPPER GASTROINTESTINAL ENDOSCOPY,WITH BIOPSY SINGLE OR MULTIPLE (WRVU 2.49) performed by David Dejesus MD at [facility] ??? PRO UPPER GI ENDOSCOPY, BIOPSY N/A 09/23/2021 EGD WITH BIOPSY (WRVU 2.49) performed by David Dejesus MD at [facility] ??? PRO UPPER GI ENDOSCOPY, BIOPSY N/A 03/31/2022 EGD WITH BIOPSY (WRVU 2.49) performed by David Dejesus MD at [facility] ??? PRO UPPER GI ENDOSCOPY, BIOPSY N/A 07/03/2022 EGD WITH BIOPSY (WRVU 2.49) performed by David Dejesus MD at [facility] ??? PRO UPPER GI ENDOSCOPY, DIAGNOSTIC N/A 04/03/2014 EGD, UPPER GI ENDOSCOPY performed by David Dejesus MD at [facility] ??? PRO UPPER GI ENDOSCOPY, DIAGNOSTIC N/A 03/01/2020 EGD, UPPER GI ENDOSCOPY performed by David Dejesus MD at [facility] Inpatient Medications: Current Facility-Administered Medications Medication Dose Route Frequency Provider Last Rate Last Admin ??? insulin glargine-ygfn (Semglee) (100 unit/mL) subcutaneous injection vial 16 Units 16 Units Subcutaneous Daily Elsie Erickson SUPERINTENDENT COLLIERY 16 Units at 09/01/22 0841 ??? [START ON 09/02/2022] insulin lispro protamine-insulin lispro (HumaLOG MIX 75/25) (100 units/mL)subcutaneous injection vial 33 Units 33 Units Subcutaneous Daily Elsie Erickson, SUPERINTENDENT COLLIERY ??? tube feeding diet 1,320 mL Per [...] 1-5 Units 1-5 Units Subcutaneous Q4H Elsie Dang G, SUPERINTENDENT COLLIERY 1 Units at 09/01/22 1134 ??? polyethylene [...] ; has two adult sons (one at [employer] [[email or web address]], one lives with friends somewhere relatively locally); [...] rhythm and soft ?? Language: fluent in sinhala ?? Mood: depressed Affect: constricted and mood-congruent ?? Thought Process: linear and logical ?? Associations: intact ?? Thought Content: no homicidal ideation no suicidal ideation ; no PI/delusions Perception: denied auditory hallucinations denied visual hallucinations not observed responding to internal stimuli ?? Orientation: oriented to self; oriented to month/day/year; oriented to [facility] and being in ahospital but could [...] this assessment. Recommendations were communicated to primary team supervisor Irwin Jones. KEENAN REY MD 09/01/2022 Coding [...] [] Minimal - [] Minimal [] Straightforward 82622 [] Low [] Low [] Low [] Low 78715 [] Moderate [x] Moderate [] Moderate [] Moderate 62381 [x] High [] High [x] High [x] High 18524 Final Coding Determination: High: 68409 * Consult Note - Nery Ott MD [...] on NRB. She was initially brought to [facility]. There labs showed WBC 15, Hgb 11, [...] on hep gtt, loaded with Aspirin,started on BLADDER TIER, diuresed, and sent to [facility] for Cardiology workup. This was ultimately felt to be [place] cardiomyopathy and she was medically managed. She was transferred to the medical service yesterday for further evaluation as she is having dysphagia and regurgitation. Per report, she has a dobhoff in place. She was seen by PLAY BACK OPERATOR today who note inconsistent symptoms/signs of aspiration [...] BX performed by David Dejesus MD at [facility] ??? PRO COLONOSCOPY, DIAGNOSTIC N/A 03/01/2020 COLONOSCOPY, DIAGNOSTIC performed by David Dejesus MD at [facility] ??? PRO ENDOSCOPIC US EXAM, ESOPH N/A 03/31/2022 UPPER EUS- ENDOSCOPIC ULTRASOUND performed by David Dejesus MD at [facility] ??? PRO UPPER GI ENDOSCOPY, BIOPSY N/A 04/03/2014 UPPER GASTROINTESTINAL ENDOSCOPY,WITH BIOPSY SINGLE OR MULTIPLE performed by David Dejesus MDat [facility] ??? PRO UPPER GI ENDOSCOPY, BIOPSY N/A 03/20/2016 EGD WITH BIOPSY performed by David Dejesus MD at [facility] ??? PRO UPPER GI ENDOSCOPY, BIOPSY N/A 11/22/2018 EGD WITH BIOPSY (WRVU 2.49) performed by David Dejesus MD at [facility] ??? PRO UPPER GI ENDOSCOPY, BIOPSY N/A 03/01/2020 UPPER GASTROINTESTINAL ENDOSCOPY,WITH BIOPSY SINGLE OR MULTIPLE (WRVU 2.49) performed by David Dejesus MD at [facility] ??? PRO UPPER GI ENDOSCOPY, BIOPSY N/A 09/23/2021 EGD WITH BIOPSY (WRVU 2.49) performed by David Dejesus MD at [facility] ??? PRO UPPER GI ENDOSCOPY, BIOPSY N/A 03/31/2022 EGD WITH BIOPSY (WRVU 2.49) performed by David Dejesus MD at [facility] ??? PRO UPPER GI ENDOSCOPY, BIOPSY N/A 07/03/2022 EGD WITH BIOPSY (WRVU 2.49) performed by David Dejesus MD at [facility] ??? PRO UPPER GI ENDOSCOPY, DIAGNOSTIC N/A 04/03/2014 EGD, UPPER GI ENDOSCOPY performed by David Dejesus MD at [facility] ??? PRO UPPER GI ENDOSCOPY, DIAGNOSTIC N/A 03/01/2020 EGD, UPPER GI ENDOSCOPY performed by David Dejesus MD at [facility] SOCIAL HX: Social History Socioeconomic History [...] for dosing. 15 mL 11 ??? Insulin [place], Disposable, (BD INSULIN PEN NEEDLE UF MINI) [...] who have questions please contact the health animal care taker that requested your imaging first. Electronically signed by: Aron Billings MD, [facility] ([phone]), at 08/31/2022 12:[address] Angiogram Coronary [...] who have questions please contact the health animal care taker that requested your imaging first. Electronically signed by: Arlette Mays MD, [facility] ([phone]), at 08/27/2022 11:[address] Chest wo Contrast (Generic) Final Result Stable findings of multifocal pneumonia. No interval abnormality. Thank you for letting us participate in the care of this patient. If you are a health care provider and have any questions regarding this report, please contact the number below. For patients who have questions please contact the health animal care taker that requested your imaging first. Electronically signed by: MINH QUIROGA MD, [facility] ([phone]), at 08/27/2022 10:48 AM XR Hip 2-3 Views Left Final Result No radiographic evidence of infection. Thank you for letting us participate in the care of this patient. If you are a health care provider and have any questions regarding this report, please contact the number below. For patients who have questions please contact the health animal care taker that requested your imaging first. Electronically signed by: Viktor Cervantes MD, [facility] ([phone]), at 08/22/2022 12:43 PM XR Pelvis (Generic) Final Result No radiographic evidence of infection status post left hip ORIF. Thank you for letting us participate in the care of this patient. If you are a health care provider and have any questions regarding this report, please contact the number below. For patients who have questions please contact the health animal care taker that requested your imaging first. Electronically signed by: Richard Billings MD, [facility] ([phone]), at 08/22/2022 10:[address] Hip w [...] who have questions please contact the health animal care taker that requested your imaging first. Electronically signed by: Aicha Chowdhury MD, [facility] ([phone]), at 08/21/2022 9:[address] Chest w [...] who have questions please contact the health animal care taker that requested your imaging first. Electronically signed by: Jagdeep Lee MD, [facility] ([phone]), at 08/21/2022 6:56 AM MRI Brain wo Contrast Final Result No acute infarction, mass or mass effect. Thank you for letting us participate in the care of this patient. If you are a health care provider and have any questions regarding this report, please contact the number below. For patients who have questions please contact the health animal care taker that requested your imaging first. Electronically signed by: Jagdeep Lee MD, [facility] ([phone]), at 08/20/2022 3:34 AM XR Chest for [...] who have questions please contact the health animal care taker that requested your imaging first. Electronically signed by: Alan De Guzman MD, [facility] ([phone]), at 08/19/2022 4:39 PM XR Chest One [...] who have questions please contact the health animal care taker that requested your imaging first. Electronically signed by: Alan De Guzman MD, [facility] ([phone]), at 08/19/2022 3:[address] Head wo Contrast (Generic) Final Result No acute intracranial process. Thank you for letting us participate in the care of this patient. If you are a health care provider and have any questions regarding this report, please contact the number below. For patients who have questions please contact the health animal care taker that requested your imaging first. Electronically signed by: Antonio Jordan MD, [facility] ([phone]), at 08/18/2022 3:18 PM XR Abdomen 1 view (Generic) Final Result Status post Dobbhoff tube placement with catheter tip terminating at the approximate position of greater curvature. I have personally reviewed the image(s) and the resident's interpretation and agree with the findings, Jenn Pnia MD at 08/17/2022 2:31 PM Thank you for letting us participate in the care of this patient. If you are a health care provider and have any questions regarding this report, please contact the number below. For patients who have questions please contact the health animal care taker that requested your imaging first. Head wo Contrast (Generic) Final Result No acute intracranial abnormality and no change from prior Thank you for letting us participate in the care of this patient. If you are a health care provider and have any questions regarding this report, please contact the number below. For patients who have questions please contact the health animal care taker that requested your imaging first. Electronically signed by: Moustapha Correa MD, [facility] ([phone]), at 08/16/2022 11:19 PM XR Chest One [...] who have questions please contact the health animal care taker that requested your imaging first. Electronically signed by: Alfonso Adams MD, [facility] ([phone]), at 08/16/2022 10:56 AM XR Abdomen 1 [...] who have questions please contact the health animal care taker that requested your imaging first. Electronically signed by: Liliane Adams MD, [facility] ([phone]), at 08/15/2022 9:05 AM XR Abdomen 1 [...] who have questions please contact the health animal care taker that requested your imaging first. Electronically signed by: Davi Terry MD, [facility] ([phone]), at 08/15/2022 6:41 AM XR Chest One View Final Result [...] who have questions please contact the health animal care taker that requested your imaging first. Electronically signed by: Davi Terry MD, [facility] ([phone]), at 08/15/2022 3:55 AM XR Chest One [...] who have questions please contact the health animal care taker that requested your imaging first. Electronically signed by: Davi Terry MD, [facility] ([phone]), at 08/15/2022 3:53 AM Film Library- Storage [...] fraction and now ongoing dysphagia. Per report julisu had a Dobbhoff since this admission for nutrition supplementation. She had a modified barium swallow with PLAY BACK OPERATOR yesterday that showed tamara oropharyngeal aspiration. I [...] of the hospital. Recommendations: -Continue working with PLAY BACK OPERATOR -If no meaningful improvement in oropharyngeal dysphagia [...] them as documented. Cesar Cervantes MD, MS machine inspector Spray Painter, Gastroenterology and Hepatology * Plan of Care [...] to be determined Last Occupational Therapy Recommendation: group home facility, acute rehabilitation facility with to be [...] Anticipated Date of Discharge: 09/04/2022 Flavio ROLAND automation operator- Medicine Office of Care Management Office# [phone] Pager: [phone] * Plan of Care - Vicente Zarco [...] [] 701-900 mg [] 901-1100 mg [] 7925-0737 mg [] 9327-8039 mg [] Above 1500 mg Medications: No [...] for dosing. 15 mL 11 ??? Insulin [place], Disposable, (BD INSULIN PEN NEEDLE UF MINI) [...] weeks. Will recheck 25, Vit D at [facility] outpatient follow up appointment. C. Will order [...] to be determined Last Occupational Therapy Recommendation: group home facility with to be determined Plan for discharge is: Pending Hospital Course and PT/OT Recommendations Outpatient Agency/Support Group Needs: Other *TBD Agency Referrals: Family has requested [facility] for rehab. Pt still with [...] 08/31/2022 Office of Care Management Surgery Team Internal Medicine Doctor ERI Pager #[phone] * Consult Note - Elsie Erickson APRN [...] deficiency anemia,??GERD??c/b??esophagitis &??Farrell's esophagus??presenting in transfer from [facility], suspected to be in cardiogenic shock and found to be in mixed shock with concern for stress cardiomyopathy. We are being consulted to assist with transitioning this patient off of her drip. Patient remains on a tube feeding diet Peptamen AF by NG tube continuous at 45mls/hr. Diabetes History: Ishan Irving has had diabetes since diagnosed with gestational diabetes in 2002 and then [id number]. Current outpatient diabetes regimen: Diabetes Provider: PCP [...] deficiency anemia,??GERD??c/b??esophagitis &??Farrell's esophagus??presenting in transfer from [facility], suspected to be in cardiogenic shock and [...] Erickson APRN Endocrinology Diabetes Management Service Pager: [phone] minutes of this 80 minute visit [...] deficiency anemia,??GERD??c/b??esophagitis &??Farrell's esophagus??presented as transfer from [facility] 08/15/22 suspected to be in cardiogenic shock [...] BX performed by David Dejesus MD at [facility] ??? PRO COLONOSCOPY, DIAGNOSTIC N/A 03/01/2020 COLONOSCOPY, DIAGNOSTIC performed by David Dejesus MD at [facility] ??? PRO ENDOSCOPIC US EXAM, ESOPH N/A 03/31/2022 UPPER EUS- ENDOSCOPIC ULTRASOUND performed by David Dejesus MD at [facility] ??? PRO UPPER GI ENDOSCOPY, BIOPSY N/A 04/03/2014 UPPER GASTROINTESTINAL ENDOSCOPY,WITH BIOPSY SINGLE OR MULTIPLE performed by David Dejesus MDat [facility] ??? PRO UPPER GI ENDOSCOPY, BIOPSY N/A 03/20/2016 EGD WITH BIOPSY performed by David Dejesus MD at [facility] ??? PRO UPPER GI ENDOSCOPY, BIOPSY N/A 11/22/2018 EGD WITH BIOPSY (WRVU 2.49) performed by David Dejesus MD at [facility] ??? PRO UPPER GI ENDOSCOPY, BIOPSY N/A 03/01/2020 UPPER GASTROINTESTINAL ENDOSCOPY,WITH BIOPSY SINGLE OR MULTIPLE (WRVU 2.49) performed by David Dejesus MD at [facility] ??? PRO UPPER GI ENDOSCOPY, BIOPSY N/A 09/23/2021 EGD WITH BIOPSY (WRVU 2.49) performed by David Dejesus MD at [facility] ??? PRO UPPER GI ENDOSCOPY, BIOPSY N/A 03/31/2022 EGD WITH BIOPSY (WRVU 2.49) performed by David Dejesus MD at [facility] ??? PRO UPPER GI ENDOSCOPY, BIOPSY N/A 07/03/2022 EGD WITH BIOPSY (WRVU 2.49) performed by David Dejesus MD at [facility] ??? PRO UPPER GI ENDOSCOPY, DIAGNOSTIC N/A 04/03/2014 EGD, UPPER GI ENDOSCOPY performed by David Dejesus MD at [facility] ??? PRO UPPER GI ENDOSCOPY, DIAGNOSTIC N/A 03/01/2020 EGD, UPPER GI ENDOSCOPY performed by David Dejesus MD at [facility] Allergies Allergen Reactions ??? Meperidine Hcl [...] for dosing. 15 mL 11 ??? Insulin [place], Disposable, (BD INSULIN PEN NEEDLE UF MINI) [...] in M/R/U distributions Motor intact wrist flexion/extension, cable tool operator Brisk capillary refill distally Left Upper Extremity Exam: No ecchymosis, erythema, or overlying skin changes No effusion in shoulder / elbow / wrist No obvious TTP clavicle, shoulder, humerus, elbow, forearm, wrist, hand Apparent painless range of motion of shoulder / elbow / wrist / fingers Sensation appears intact to light touch in M/R/U distributions Motor intact wrist flexion/extension, cable tool operator Brisk capillary refill distally Right Lower Extremity [...] infection. Orthopaedics will sign off. Please page [phone] when the patient is extubated and examinable for more reliable exam of the L hip. We will f/u the pending XR and ESR/CRP and reach out as needed. - Activity: WBAT LLE - DVT prophylaxis: Per primary, on SQH - Antibiotics: Per primary, on Zosyn - Diet: Per primary - Imaging needed: XR L hip and pelvis Rober Mensah MD Orthopaedic Surgery, [phone] * Consult Note - Parris Leyva MD [...] pancreatitis, GERD/Barrets esophagitis who was transferred from [facility] with cardiogenic shock. Patient fell on August [...] started on heparin infusion and transferred to [facility] on 08/15. Vasopressor requirement on admission. Pip/tazo [...] follow. Please page ID Red team (pager [phone]) with questions or concerns. Stefan Garsia MD 08/20/2022 3:35 PM Pager: [phone] Infectious Diseases Attending I saw the patient with the infectious diseases fellow. I have made some modifications and agree with the presentation of data and the assessment and plan as outlined above. Parris Leyva MD Professor, Department of Medicine Page [phone] minutes of this 80 minute visit [...] potential sources identified. Low overall suspicion for MODELING INSTRUCTOR infection given recent MRI and improvement in [...] pressor support, and she was transferred to [facility] on 08/14/22. Over the course of several [...] correction factor scale for dosing. ??? Insulin [place], Disposable, (BD INSULIN PEN NEEDLE UF MINI) [...] Negative mcL Appearance UA Clear Clear Spec [place] UA 1.018 1.005 - 1.030 Color UA Yellow Yellow Culture Reflexed No Urinalysis Microscopic Exam Result Value Ref Range RBC UA 1 0 - 4 /HPF WBC UA 3 0 - 5 /HPF Bacteria UA Rare (A) None /HPF Yeast [place] UA Occasional (A) None /HPF Yeast Hyph UA Occasional (A) None /HPF Squam Epith UA 1 <=4 /HPF Hyaline Cast UA 2 0 - 2 /LPF Lactate, whole blood, send to lab ([facility]) Result Value Ref Range Lactate WB 1.6 [...] ? Tim Emmanuel [place] [address] Pager #[phone] Email: [email or web address] ?? * Plan of [facility], Carlos Reeves RN - 08/19/2022 4:50 PM EDT Peripherally Inserted Central Catheter (PICC) Teaching Sheet Peripherally inserted central catheters ([id number]-[id number]) (PICC) are used when you need IV [...] midline catheter? PICC lines are used for long-term treatments. PICC lines may be used for [...] can be set up via the nurse Internal Medicine Doctor to help you. What are possible complications [...] pressor support, and she was transferred to [facility] on 08/14/22. Over the course of several [...] correction factor scale for dosing. ??? Insulin [place], Disposable, (BD INSULIN PEN NEEDLE UF MINI) [...] mg/dL Lactate, whole blood, send to lab ([facility]) Result Value Ref Range Lactate WB 1.6 [...] hours. Tim Emmanuel MD [place] [address] Pager #[phone] Email: [email or web address] * Consult Note - Nichelle Barrett MD [...] correction factor scale for dosing. ??? Insulin [place], Disposable, (BD INSULIN PEN NEEDLE UF MINI) [...] 6-10 /HPF Hypochromia Moderate Ovalocytes 1-5 /HPF [place] Cells 6-10 /HPF Giant Platelets Less than [...] Neurophysiology * Consult Note - Veena King, [facility] - 08/18/2022 9:59 AM EDT [...] Alternately, during off-hours you niurka hallman call [phone] to contact a pharmacist. * Consult Note - Lorene Michelle [facility] - 08/17/2022 4:53 PM EDT [facility] Pharmacokinetics Note Drug: Vancomycin Pharmacokinetic target: AUC24 (range) 400-600 mg/L.hr Current regimen: 750 mg IV every 24 hours Ishan Irving is a(n) 62 years old female receiving Vancomycin 750 mg IV every 24 hours for pneumonia Recent measured serum creatinine values: 08/17/2022 00:45 1.1 mg/dL 08/16/2022 18:00 1.15 mg/dL 08/16/2022 03:36 1.42 mg/dL Assessment: Analysis of the most recent level(s) using PackbackX gives the following patient-specific pharmacokinetic parameters: CL: [...] COVID test: Lab Results Component Value Date [id number] Not Detected 08/15/2022 Past medical History: Past Medical History: Diagnosis Date ??? Bipolar disorder 02/12/2022 Hospitalizations Within the Past 30 Days: no previous admission in last 30 days Current Decision-Making Capacity: Other (spouse is decision maker based on surrogacy; no AD in place) If AD's have not been completed the following surrogate would be surrogate decision maker per [place] surrogate decision making law. (Only good for 180 days) Any patient receiving care in [place] must abide by [place] law. The hierarchy for surrogate decision making [...] (i) The agent with financial power of commonwealth attorney or a conservator appointed in accordance [...] Home Address confirmed as: [address] [facility] [address] Social & Family Supports: All names listed [...] N/A ; Prescription Coverage: Yes Preferred Pharmacy: [id number] [address] Status: Patient is a : No Primary Care Provider confirmed: Chris Stanley APRN [phone] Patient/Caregiver Goals of Treatment: to be determined [...] Clinical Pharmacist Note - VancFD Ishan Irving [id number] Ishan Irving is a 62 y.o. [...] have. Alternately,during off-hours (9p-) you may call [phone] to contact a pharmacist. Tapan Hastings RPH documented in this encounter Plan of Treatment Upcoming Encounters Date Type Department Care Team (Late st Contact Info) Description 03/10/2024 4:00 PM EDT Office Visit Cardiology at [address] [address] Milagros Hernandez MD [facility] [place] [address] Pending Results Name Type Priority Associated Diagnoses [...] :13 AM EDT Upper GI Endoscopy, Diagnostic (11299) 09/09/2022 11:35 PM EDT failed MBS with [...] AM EDT [facility] FUNGITELL; (1, 3) [id number] Routine 08/21/2022 8:00 AM EDT POCT GLUCOSE [...] MD IMG IR ORDERABLES Performing Organization Address City/[facility]/ZIP Co de Phone Number [place], [place] * POCT Glucose (09/25/2022 6:26 AM EDT) Glucose, POC 155 65 - 199 mg/dL [facility] Comment: Supplemental ranges: <140 mg/dL before meals <180 mg/dL all other times of the day Blood 09/25/2022 6:26 AM EDT 09/25/2022 6:26 AM EDT Jose Mcleod MD POINT OF CARE TEST O RDERABLES Performing Organization Address [facility] Co de Phone Number [facility] [place] [address] * (ABNORMAL) Basic Metabolic Panel (non-fasting) (09/25/2022 3:11 AM EDT) Glucose 187 65 - 199 mg/dL [facility] Comment:Diabetes: >=200 mg/d L plus symptoms Blood Urea Nitrogen 32(H) 8 - 18 mg/dL [facility] Creatinine 0.62(L) 0.70 - 1.20 mg/dL [facility] Sodium 142 135 - 145 mmol/L [facility] Potassium 4.6 3.5 - 5.0 mmol/L [facility] Comment: Please note: ??Patients with WBC >100,000 may have falsely elevated Potassium levels. ??For accurate Potassium quantification in these patients send serum separator tube (gold top) for subsequent determinations. ??Contact the Clinical Chemistry Laboratory if there are any questions. Chloride 103 98 - 107 mmol/L [facility] Carbon Dioxide 31 22 - 31 mmol/L [facility] Anion Gap 8 5 - 15 mmol/L [facility] Calcium 9.8 8.5 - 10.5 mg/dL [facility] Est Glomerular Filtration Rate 101 >=60 mL/min/1. 73 m?? [facility] [facility] Comment: This patient's estimated GFR [...] Pascal MD CHEMISTRY ORDERABLES Performing Organization Address [facility] Co de Phone Number [facility] [place] [address] * Phosphorus (09/25/2022 3:11 AM EDT) Phosphorus 4.0 2.5 - 4.5 mg/dL [facility] Blood 09/25/2022 3:11 AM EDT 09/25/2022 3:54 AM EDT Narrative Resulting Agency Comment Spec In Lab Richard Pascal MD CHEMISTRY ORDERABLES Performing Organization Address [facility] Co de Phone Number [facility] [place] [address] * Magnesium (09/25/2022 3:11 AM EDT) Magnesium 0.95 0.69 - 1.07 mmol/L [facility] Blood 09/25/2022 3:11 AM EDT 09/25/2022 3:54 AM EDT Narrative Resulting Agency Comment Spec In Lab Richard Pascal MD CHEMISTRY ORDERABLES Performing Organization Address [facility] Co de Phone Number [facility] [place] [address] * (ABNORMAL) POCT Glucose (09/24/2022 8:44 PM EDT) Glucose, POC 218(H) 65 - 199 mg/dL [facility] Comment: Supplemental ranges: <140 mg/dL before meals <180 mg/dL all other times of the day Blood 09/24/2022 8:44 PM EDT 09/24/2022 8:44 PM EDT Jose Mcleod MD POINT OF CARE TEST O RDERABLES [facility] [place] [address] * (ABNORMAL) POCT Glucose (09/24/2022 4:03 PM EDT) Glucose, POC 243(H) 65 - 199 mg/dL [facility] Comment: Supplemental ranges: <140 mg/dL before meals <180 mg/dL all other times of the day Blood 09/24/2022 4:03 PM EDT 09/24/2022 4:03 PM EDT Jose Mcleod MD POINT OF CARE TEST O RDERABLES Performing Organization Address [facility]/ZIP Co de Phone Number [facility] [place] [address] * (ABNORMAL) POCT Glucose (09/24/2022 11:44 AM EDT) Glucose, POC 272(H) 65 - 199 mg/dL [facility] Comment: Supplemental ranges: <140 mg/dL before meals <180 mg/dL all other times of the day Blood 09/24/2022 11:4 4 AM EDT 09/24/2022 11:44 AM EDT Jose Mcleod MD POINT OF CARE TEST O RDERABLES Performing Organization Address City/[facility] Co de Phone Number [facility] [place] [address] * POCT Glucose (09/24/2022 6:21 AM EDT) Glucose, POC 186 65 - 199 mg/dL [facility] Comment: Supplemental ranges: <140 mg/dL before meals <180 mg/dL all other times of the day Blood 09/24/2022 6:21 AM EDT 09/24/2022 6:21 AM EDT Jose Mcleod MD POINT OF CARE TEST O RDERABLES Performing Organization Address City/[facility]/ZIP Co de Phone Number [facility] [place] [address] * Lavender Tube HOLD (09/24/2022 5:31 AM EDT) Lavender Hold Sample in lab. [facility] Blood Venous Draw / Unknown 09/24/2022 5:31 AM EDT 09/24/2022 5:48 AM EDT Jigar Streeter MD HEMATOLOGY ORDERABLE S Performing Organization Address [facility] Co de Phone Number [facility] [place] [address] * (ABNORMAL) Basic Metabolic Panel (non-fasting) (09/24/2022 5:31 AM EDT) Glucose 188 65 - 199 mg/dL [facility] Comment:Diabetes: >=200 mg/d L plus symptoms Blood Urea Nitrogen 31(H) 8 - 18 mg/dL [facility] Creatinine 0.69(L) 0.70 - 1.20 mg/dL [facility] Sodium 139 135 - 145 mmol/L [facility] Potassium 4.5 3.5 - 5.0 mmol/L [facility] Comment: Please note: ??Patients with WBC >100,000 may have falsely elevated Potassium levels. ??For accurate Potassium quantification in these patients send serum separator tube (gold top) for subsequent determinations. ??Contact the Clinical Chemistry Laboratory if there are any questions. Chloride 100 98 - 107 mmol/L [facility] Carbon Dioxide 30 22 - 31 mmol/L [facility] Anion Gap 9 5 - 15 mmol/L [facility] Calcium 10.0 8.5 - 10.5 mg/dL [facility] Est Glomerular Filtration Rate 98 >=60 mL/min/1. 73 m?? [facility] Comment: This patient's estimated GFR [...] Pascal MD CHEMISTRY ORDERABLES Performing Organization Address City/[facility]/ZIP Co de Phone Number [facility] [place] [address] * (ABNORMAL) Phosphorus (09/24/2022 5:31 AM EDT) Phosphorus 4.6(H) 2.5 - 4.5 mg/dL [facility] Blood 09/24/2022 5:31 AM EDT 09/24/2022 5:48 AM EDT Narrative Resulting Agency Comment Spec In Lab Richard Pascal MD CHEMISTRY ORDERABLES Performing Organization Address [facility] Co de Phone Number [facility] [place] [address] * Magnesium (09/24/2022 5:31 AM EDT) Magnesium 0.95 0.69 - 1.07 mmol/L [facility] Blood 09/24/2022 5:31 AM EDT 09/24/2022 5:48 AM EDT Narrative Resulting Agency Comment Spec In Lab Richard Pascal MD CHEMISTRY ORDERABLES Performing Organization Address City/[facility]/ZIP Co de Phone Number [facility] [place] [address] * (ABNORMAL) POCT Glucose (09/23/2022 7:58 PM EDT) Glucose, POC 226(H) 65 - 199 mg/dL [facility] Comment: Supplemental ranges: <140 mg/dL before meals <180 mg/dL all other times of the day Blood 09/23/2022 7:58 PM EDT 09/23/2022 7:58 PM EDT Jose Mcleod MD POINT OF CARE TEST O GABRIELLA Performing Organization Address City/[facility] Co de Phone Number [facility] [place] [address] * POCT Glucose (09/23/2022 4:40 PM EDT) Glucose, POC 94 65 - 199 mg/dL [facility] Comment: Supplemental ranges: <140 mg/dL before meals <180 mg/dL all other times of the day Blood 09/23/2022 4:40 PM EDT 09/23/2022 4:40 PM EDT Jose Mcleod MD POINT OF CARE TEST O GABRIELLA Performing Organization Address [facility] Co de Phone Number [facility] [place] [address] * (ABNORMAL) POCT Glucose (09/23/2022 2:00 PM EDT) Glucose, POC 276(H) 65 - 199 mg/dL [facility] Comment: Supplemental ranges: <140 mg/dL before meals <180 mg/dL all other times of the day Blood 09/23/2022 2:00 PM EDT 09/23/2022 2:00 PM EDT Jose Mcleod MD POINT OF CARE TEST O RDERAREYMUNDO Performing Organization Address City/[facility] Co de Phone Number [facility] [place] [address] * (ABNORMAL) POCT Glucose (09/23/2022 1:14 PM EDT) Glucose, POC 324(H) 65 - 199 mg/dL [facility] Comment: Supplemental ranges: <140 mg/dL before meals <180 mg/dL all other times of the day Blood 09/23/2022 1:14 PM EDT 09/23/2022 1:14 PM EDT Jose Mcleod MD POINT OF CARE TEST O RDERABLES Performing Organization Address City/[facility]/ZIP Co de Phone Number [facility] [place] [address] * (ABNORMAL) POCT Glucose (09/23/2022 11:37 AM EDT) Glucose, POC 291(H) 65 - 199 mg/dL [facility] Comment: Supplemental ranges: <140 mg/dL before meals <180 mg/dL all other times of the day Blood 09/23/2022 11:3 7 AM EDT 09/23/2022 11:37 AM EDT Jose Mcleod MD POINT OF CARE TEST O RDERAREYMUNDO Performing Organization Address [facility] Co de Phone Number [facility] [place] [address] * POCT Glucose (09/23/2022 6:24 AM EDT) Glucose, POC 191 65 - 199 mg/dL [facility] Comment: Supplemental ranges: <140 mg/dL before meals <180 mg/dL all other times of the day Blood 09/23/2022 6:24 AM EDT 09/23/2022 6:24 AM EDT Jose Mcleod MD POINT OF CARE TEST O RDERABLES Performing Organization Address City/[facility]/ZIP Co de Phone Number [facility] [place] [address] * Scan, Peripheral Blood (09/23/2022 5:02 AM EDT) Plat estimate Normal [facility] RBC Morphology Abnormal [facility] Microcyte 6-10 /HPF [facility] Hypochromia Moderate [facility] Ovalocytes 1-5 /HPF [facility] Target Cells 1-5 /HPF [facility] Blood 09/23/2022 5:02 AM EDT 09/23/2022 5:23 AM EDT Narrative Resulting Agency Comment Spec In Lab Alan Hunt MD HEMATOLOGY ORDERABLE S [facility] [place] [address] * (ABNORMAL) Differential, Automated (09/23/2022 5:02 AM EDT) Neutrophil % 51.8 % [facility] Neutrophil Absolute 3.50 1.70 - 6.10 x10(3)/mc L [facility] Lymph % 32.8 % [facility] Lymphocytes Abs 2.2 0.9 - 3.2 x10(3)/mc L [facility] Monocyte % 10.3 % [facility] Monocyte Abs 0.7 0.3 - 0.9 x10(3)/mc L [facility] Eos % 2.8 % [facility] Eosinophils Abs 0.2 0.0 - 0.4 x10(3)/mc L [facility] Basophil % 1.6 % [facility] Baso Absolute 0.1 0.0 - 0.1 x10(3)/mc L [facility] Immature Gran % 0.70 % [facility] Comment: Immature granulocytes(IG's)percentage and absolute count will include metamyelocytes, myelocytes, and promyelocytes. Blood smears from CBCs yielding IG's will be scanned manually for concordance. If this scan disagrees with the automated IG or if promyelocytes are noted, a manual differential will be performed. Immature Gran Absolute 0.05(H) 0.00 - 0.04 x10(3)/mc L [facility] Blood 09/23/2022 5:02 AM EDT 09/23/2022 5:23 AM EDT Narrative Resulting Agency Comment Spec In Lab Alan Hunt MD HEMATOLOGY ORDERABLE S [facility] [place] [address] * (ABNORMAL) Hemogram (09/23/2022 5:02 AM EDT) White Blood Cell 6.8 4.0 - 9.5 x10(3)/mc L [facility] Red Blood Cell 4.78 4.00 - 5.21 x10(6)/mc L [facility] Hemoglobin 11.5(L) 11.7 - 15.5 g/dL [facility] Hematocrit 38.4 35.7 - 45.8 % [facility] Mean Cell Volume 80.3(L) 82.6 - 94.4 fL [facility] Mean Cell Hemoglobin 24.1(L) 27.1 - 32.0 pg [facility] Mean Cell Hemoglobin Concentration 29.9(L) 31.7 - 35.0 g/dL [facility] Platelet 222 145 - 357 x10(3)/mc L [facility] RDW Standard Deviation 81.1(H) 37.0 - 46.0 fL [facility] RDW coefficient of variation 28.9(H) 11.5 - 14.1 % [facility] Mean Platelet Volume Not Measured 7.6 - 12.9 fL [facility] NRBC% auto 0.0 % [facility] NRBC Absolute 0.000 0.000 - 0.000 x10(3)/ L [facility] Blood 09/23/2022 5:02 AM EDT 09/23/2022 5:23 AM EDT Narrative Resulting Agency Comment Spec In Lab Alan Hunt MD HEMATOLOGY ORDERABLE S [facility] [place] [address] * (ABNORMAL) Basic Metabolic Panel (non-fasting) (09/23/2022 5:02 AM EDT) Glucose 203(H) 65 - 199 mg/dL [facility] Comment:Diabetes: >=200 mg/d L plus symptoms Blood Urea Nitrogen 28(H) 8 - 18 mg/dL [facility] Creatinine 0.57(L) 0.70 - 1.20 mg/dL [facility] Sodium 139 135 - 145 mmol/L [facility] Potassium 4.6 3.5 - 5.0 mmol/L [facility] Comment: Please note: ??Patients with WBC >100,000 may have falsely elevated Potassium levels. ??For accurate Potassium quantification in these patients send serum separator tube (gold top) for subsequent determinations. ??Contact the Clinical Chemistry Laboratory if there are any questions. Chloride 101 98 - 107 mmol/L [facility] Carbon Dioxide 30 22 - 31 mmol/L [facility] Anion Gap 8 5 - 15 mmol/L [facility] Calcium 10.0 8.5 - 10.5 mg/dL [facility] Est Glomerular Filtration Rate 103 >=60 mL/min/1. 73 m?? [facility] Comment: This patient's estimated GFR was [...] Pascal MD CHEMISTRY ORDERABLES Performing Organization Address City/State/[facility] Co de Phone Number [facility] [place] [address] * Phosphorus (09/23/2022 5:02 AM EDT) Phosphorus 4.4 2.5 - 4.5 mg/dL [facility] Blood 09/23/2022 5:02 AM EDT 09/23/2022 5:23 AM EDT Narrative Resulting Agency Comment Spec In Lab Richard Pascal MD CHEMISTRY ORDERABLES Performing Organization Address City/[facility]/ZIP Co de Phone Number [facility] [place] [address] * Magnesium (09/23/2022 5:02 AM EDT) Magnesium 0.91 0.69 - 1.07 mmol/L [facility] Blood 09/23/2022 5:02 AM EDT 09/23/2022 5:23 AM EDT Narrative Resulting Agency Comment Spec In Lab Richard Pascal MD CHEMISTRY ORDERABLES Performing Organization Address [facility] Co de Phone Number [facility] [place] [address] * POCT Glucose (09/22/2022 8:23 PM EDT) Glucose, POC 185 65 - 199 mg/dL [facility] Comment: Supplemental ranges: <140 mg/dL before meals <180 mg/dL all other times of the day Blood 09/22/2022 8:23 PM EDT 09/22/2022 8:23 PM EDT Jose Mcleod MD POINT OF CARE TEST O RDERABLES Performing Organization Address [facility] Co de Phone Number [facility] [place] [address] * (ABNORMAL) POCT Glucose (09/22/2022 4:35 PM EDT) Glucose, POC 220(H) 65 - 199 mg/dL [facility] Comment: Supplemental ranges: <140 mg/dL before meals <180 mg/dL all other times of the day Blood 09/22/2022 4:35 PM EDT 09/22/2022 4:35 PM EDT oJse Mcleod MD POINT OF CARE TEST O RDERABLES Performing Organization Address City/[facility] Co de Phone Number [facility] [place] [address] * (ABNORMAL) POCT Glucose (09/22/2022 11:24 AM EDT) Glucose, POC 304(H) 65 - 199 mg/dL [facility] Comment: Supplemental ranges: <140 mg/dL before meals <180 mg/dL all other times of the day Blood 09/22/2022 11:2 4 AM EDT 09/22/2022 11:24 AM EDT Jose Mcleod MD POINT OF CARE TEST O RDERAREYMUNDO Performing Organization Address City/[facility] Co de Phone Number [facility] [place] [address] * POCT Glucose (09/22/2022 6:38 AM EDT) Glucose, POC 188 65 - 199 mg/dL [facility] Comment: Supplemental ranges: <140 mg/dL before meals <180 mg/dL all other times of the day Blood 09/22/2022 6:38 AM EDT 09/22/2022 6:38 AM EDT Jose Mcleod MD POINT OF CARE TEST O GABRIELLA Performing Organization Address [facility] Co de Phone Number [facility] [place] [address] * (ABNORMAL) Basic Metabolic Panel (non-fasting) (09/22/2022 5:44 AM EDT) Glucose Not Perf 65 - 199 [facility] Comment: Sample improperly processed prior to receipt. Diabetes: >=200 mg/dL plus symptoms Blood Urea Nitrogen 24(H) 8 - 18 mg/dL [facility] Creatinine 0.56(L) 0.70 - 1.20 mg/dL [facility] Sodium 139 135 - 145 mmol/L [facility] Potassium 4.7 3.5 - 5.0 mmol/L [facility] Comment: Please note: ??Patients with WBC >100,000 may have falsely elevated Potassium levels. ??For accurate Potassium quantification in these patients send serum separator tube (gold top) for subsequent determinations. ??Contact the Clinical Chemistry Laboratory if there are any questions. Chloride 101 98 - 107 mmol/L [facility] Carbon Dioxide 28 22 - 31 mmol/L [facility] Anion Gap 10 5 - 15 mmol/L [facility] Calcium 10.3 8.5 - 10.5 mg/dL [facility] Est Glomerular Filtration Rate 103 >=60 mL/min/1. 73 m?? [facility] Comment: This patient's estimated GFR was [...] Pascal MD CHEMISTRY ORDERABLES Performing Organization Address City/[facility]/ZIP Co de Phone Number [facility] [place] [address] * Phosphorus (09/22/2022 5:44 AM EDT) Phosphorus 4.0 2.5 - 4.5 mg/dL [facility] Blood 09/22/2022 5:44 AM EDT 09/22/2022 7:46 AM EDT Narrative Resulting Agency Comment Spec In Lab Richard Pascal MD CHEMISTRY ORDERABLES Performing Organization Address City/[facility]/ZIP Co de Phone Number [facility] [place] [address] * Magnesium (09/22/2022 5:44 AM EDT) Magnesium 0.89 0.69 - 1.07 mmol/L [facility] Blood 09/22/2022 5:44 AM EDT 09/22/2022 7:46 AM EDT Narrative Resulting Agency Comment Spec In Lab Richard Pascal MD CHEMISTRY ORDERABLES Performing Organization Address [facility] Co de Phone Number [facility] [place] [address] * POCT Glucose (09/21/2022 8:05 PM EDT) Glucose, POC 168 65 - 199 mg/dL [facility] Comment: Supplemental ranges: <140 mg/dL before meals <180 mg/dL all other times of the day Blood 09/21/2022 8:05 PM EDT 09/21/2022 8:05 PM EDT Jose Mcleod MD POINT OF CARE TEST O RDERABLES Performing Organization Address [facility] Co de Phone Number [facility] [place] [address] * (ABNORMAL) POCT Glucose (09/21/2022 4:28 PM EDT) Glucose, POC 258(H) 65 - 199 mg/dL [facility] Comment: Supplemental ranges: <140 mg/dL before meals <180 mg/dL all other times of the day Blood 09/21/2022 4:28 PM EDT 09/21/2022 4:28 PM EDT Jose Mcleod MD POINT OF CARE TEST O RDERABLES Performing Organization Address [facility] Co de Phone Number [facility] [place] [address] * (ABNORMAL) POCT Glucose (09/21/2022 11:27 AM EDT) Glucose, POC 221(H) 65 - 199 mg/dL [facility] Comment: Supplemental ranges: <140 mg/dL before meals <180 mg/dL all other times of the day Blood 09/21/2022 11:2 7 AM EDT 09/21/2022 11:27 AM EDT Jose Mcleod MD POINT OF CARE TEST O RDERABLES Performing Organization Address [facility]/ZIP Co de Phone Number [facility] [place] [address] * (ABNORMAL) POCT Glucose (09/21/2022 7:00 AM EDT) Glucose, POC 211(H) 65 - 199 mg/dL [facility] Comment: Supplemental ranges: <140 mg/dL before meals <180 mg/dL all other times of the day Blood 09/21/2022 7:00 AM EDT 09/21/2022 7:00 AM EDT Olamide Stallings MD POINT OF CARE TEST O RDERABLES Performing Organization Address [facility] Co de Phone Number [facility] [place] [address] * (ABNORMAL) Basic Metabolic Panel (non-fasting) (09/21/2022 5:54 AM EDT) Glucose 203(H) 65 - 199 mg/dL [facility] Comment:Diabetes: >=200 mg/d L plus symptoms Blood Urea Nitrogen 23(H) 8 - 18 mg/dL [facility] Creatinine 0.51(L) 0.70 - 1.20 mg/dL [facility] Sodium 137 135 - 145 mmol/L [facility] Potassium 4.6 3.5 - 5.0 mmol/L [facility] Comment: Please note: ??Patients with WBC >100,000 may have falsely elevated Potassium levels. ??For accurate Potassium quantification in these patients send serum separator tube (gold top) for subsequent determinations. ??Contact the Clinical Chemistry Laboratory if there are any questions. Chloride 101 98 - 107 mmol/L [facility] Carbon Dioxide 27 22 - 31 mmol/L [facility] Anion Gap 9 5 - 15 mmol/L [facility] Calcium 9.8 8.5 - 10.5 mg/dL [facility] Est Glomerular Filtration Rate 105 >=60 mL/min/1. 73 m?? [facility] Comment: This patient's estimated GFR was [...] Pascal MD CHEMISTRY ORDERABLES Performing Organization Address City/[facility] Co de Phone Number [facility] [place] [address] * Phosphorus (09/21/2022 5:54 AM EDT) Phosphorus 4.0 2.5 - 4.5 mg/dL [facility] Blood 09/21/2022 5:54 AM EDT 09/21/2022 6:10 AM EDT Narrative Resulting Agency Comment Spec In Lab Richard Pascal MD CHEMISTRY ORDERABLES Performing Organization Address City/[facility] Co de Phone Number [facility] [place] [address] * Magnesium (09/21/2022 5:54 AM EDT) Magnesium 0.84 0.69 - 1.07 mmol/L [facility] Blood 09/21/2022 5:54 AM EDT 09/21/2022 6:10 AM EDT Narrative Resulting Agency Comment Spec In Lab Richard Pascal MD CHEMISTRY ORDERABLES Performing Organization Address City/[facility] Co de Phone Number [facility] [place] [address] * POCT Glucose (09/20/2022 11:25 PM EDT) Glucose, POC 166 65 - 199 mg/dL [facility] Comment: Supplemental ranges: <140 mg/dL before meals <180 mg/dL all other times of the day Blood 09/20/2022 11:2 5 PM EDT 09/20/2022 11:25 PM EDT Olamide Stallings MD POINT OF CARE TEST O GABRIELLA [facility] [place] [address] * (ABNORMAL) POCT Glucose (09/20/2022 9:19 PM EDT) Glucose, POC 291(H) 65 - 199 mg/dL [facility] Comment: Supplemental ranges: <140 mg/dL before meals <180 mg/dL all other times of the day Blood 09/20/2022 9:19 PM EDT 09/20/2022 9:19 PM EDT Olamide Stallings MD POINT OF CARE TEST O GABRIELLA Performing Organization Address [facility]/ZIP Co de Phone Number [facility] [place] [address] * (ABNORMAL) POCT Glucose (09/20/2022 4:09 PM EDT) Glucose, POC 221(H) 65 - 199 mg/dL [facility] Comment: Supplemental ranges: <140 mg/dL before meals <180 mg/dL all other times of the day Blood 09/20/2022 4:09 PM EDT 09/20/2022 4:09 PM EDT Olamide Stallings MD POINT OF CARE TEST O RDERAREYMUNDO Performing Organization Address City/[facility]/ZIP Co de Phone Number [facility] [place] [address] * (ABNORMAL) POCT Glucose (09/20/2022 11:06 AM EDT) Glucose, POC 221(H) 65 - 199 mg/dL [facility] Comment: Supplemental ranges: <140 mg/dL before meals <180 mg/dL all other times of the day Blood 09/20/2022 11:0 6 AM EDT 09/20/2022 11:06 AM EDT Olamide Stallings MD POINT OF CARE TEST O RDERABLES [facility] [place] [address] * POCT Glucose (09/20/2022 5:39 AM EDT) Glucose, POC 187 65 - 199 mg/dL [facility] Comment: Supplemental ranges: <140 mg/dL before meals <180 mg/dL all other times of the day Blood 09/20/2022 5:39 AM EDT 09/20/2022 5:39 AM EDT Olamide Stallings MD POINT OF CARE TEST O RDERABLES Performing Organization Address [facility] Co de Phone Number [facility] [place] [address] * (ABNORMAL) Differential, Automated (09/20/2022 5:06 AM EDT) Neutrophil % 43.5 % [facility] Neutrophil Absolute 2.83 1.70 - 6.10 x10(3)/mc L [facility] Lymph % 40.2 % [facility] Lymphocytes Abs 2.6 0.9 - 3.2 x10(3)/mc L [facility] Monocyte % 11.1 % [facility] Monocyte Abs 0.7 0.3 - 0.9 x10(3)/mc L [facility] Eos % 2.8 % [facility] Eosinophils Abs 0.2 0.0 - 0.4 x10(3)/mc L [facility] Basophil % 1.5 % [facility] Baso Absolute 0.1 0.0 - 0.1 x10(3)/mc L [facility] Immature Gran % 0.90 % [facility] Comment: Immature granulocytes(IG's)percentage and absolute count will include metamyelocytes, myelocytes, and promyelocytes. Blood smears from CBCs yielding IG's will be scanned manually for concordance. If this scan disagrees with the automated IG or if promyelocytes are noted, a manual differential will be performed. Immature Gran Absolute 0.06(H) 0.00 - 0.04 x10(3)/mc L [facility] Blood 09/20/2022 5:06 AM EDT 09/20/2022 5:29 AM EDT Narrative Resulting Agency Comment Spec In Lab Alan Hunt MD HEMATOLOGY ORDERABLE S Performing Organization Address City/State/[facility] Co de Phone Number [facility] [place] [address] * (ABNORMAL) Hemogram (09/20/2022 5:06 AM EDT) White Blood Cell 6.5 4.0 - 9.5 x10(3)/ L [facility] Red Blood Cell 4.68 4.00 - 5.21 x10(6)/[facility] Hemoglobin 11.1(L) 11.7 - 15.5 g/dL [facility] Hematocrit 36.8 35.7 - 45.8 % [facility] Mean Cell Volume 78.6(L) 82.6 - 94.4 fL [facility] Mean Cell Hemoglobin 23.7(L) 27.1 - 32.0 pg [facility] Mean Cell Hemoglobin Concentration 30.2(L) 31.7 - 35.0 g/dL [facility] Platelet 232 145 - 357 x10(3)/mc L [facility] RDW Standard Deviation 78.3(H) 37.0 - 46.0 fL [facility] RDW coefficient of variation 29.0(H) 11.5 - 14.1 % [facility] Mean Platelet Volume Not Measured 7.6 - 12.9 fL [facility] NRBC% auto 0.0 % [facility] NRBC Absolute 0.000 0.000 - 0.000 x10(3)/ L [facility] Blood 09/20/2022 5:06 AM EDT 09/20/2022 5:29 AM EDT Narrative Resulting Agency Comment Spec In Lab Alan Hunt MD HEMATOLOGY ORDERABLE S Performing Organization Address City/[facility]/ZIP Co de Phone Number [facility] [place] [address] * (ABNORMAL) Basic Metabolic Panel (non-fasting) (09/20/2022 5:06 AM EDT) Glucose 206(H) 65 - 199 mg/dL [facility] Comment:Diabetes: >=200 mg/d L plus symptoms Blood Urea Nitrogen 23(H) 8 - 18 mg/dL [facility] Creatinine 0.50(L) 0.70 - 1.20 mg/dL [facility] Sodium 135 135 - 145 mmol/L [facility] Potassium 4.9 3.5 - 5.0 mmol/L [facility] Comment: Please note: ??Patients with WBC >100,000 may have falsely elevated Potassium levels. ??For accurate Potassium quantification in these patients send serum separator tube (gold top) for subsequent determinations. ??Contact the Clinical Chemistry Laboratory if there are any questions. Chloride 99 98 - 107 mmol/L [facility] Carbon Dioxide 26 22 - 31 mmol/L [facility] Anion Gap 10 5 - 15 mmol/L [facility] Calcium 9.6 8.5 - 10.5 mg/dL [facility] Est Glomerular Filtration Rate 106 >=60 mL/min/1. 73 m?? [facility] Comment: This patient's estimated GFR was [...] Pascal MD CHEMISTRY ORDERABLES Performing Organization Address [facility]/ZIP Co de Phone Number [facility] [place] [address] * Phosphorus (09/20/2022 5:06 AM EDT) Phosphorus 3.5 2.5 - 4.5 mg/dL [facility] Blood 09/20/2022 5:06 AM EDT 09/20/2022 5:29 AM EDT Narrative Resulting Agency Comment Spec In Lab Richard Pascal MD CHEMISTRY ORDERABLES Performing Organization Address City/[facility] Co de Phone Number [facility] [place] [address] * Magnesium (09/20/2022 5:06 AM EDT) Magnesium 0.83 0.69 - 1.07 mmol/L [facility] Blood 09/20/2022 5:06 AM EDT 09/20/2022 5:29 AM EDT Narrative Resulting Agency Comment Spec In Lab Richard Pascal MD CHEMISTRY ORDERABLES Performing Organization Address [facility] Co de Phone Number [facility] [place] [address] * (ABNORMAL) POCT Glucose (09/19/2022 10:53 PM EDT) Glucose, POC 209(H) 65 - 199 mg/dL [facility] Comment: Supplemental ranges: <140 mg/dL before meals <180 mg/dL all other times of the day Blood 09/19/2022 10:5 3 PM EDT 09/19/2022 10:53 PM EDT Olamide Stallings MD POINT OF CARE TEST O RDERABLES Performing Organization Address [facility] Co de Phone Number [facility] [place] [address] * (ABNORMAL) POCT Glucose (09/19/2022 8:51 PM EDT) Glucose, POC 329(H) 65 - 199 mg/dL [facility] Comment: Supplemental ranges: <140 mg/dL before meals <180 mg/dL all other times of the day Blood 09/19/2022 8:51 PM EDT 09/19/2022 8:51 PM EDT Olamide Stallings MD POINT OF CARE TEST O RDERAREYMUNDO Performing Organization Address City/[facility]/ZIP Co de Phone Number [facility] [place] [address] * (ABNORMAL) POCT Glucose (09/19/2022 7:57 PM EDT) Glucose, POC 275(H) 65 - 199 mg/dL [facility] Comment: Supplemental ranges: <140 mg/dL before meals <180 mg/dL all other times of the day Blood 09/19/2022 7:57 PM EDT 09/19/2022 7:57 PM EDT Olamide Stallings MD POINT OF CARE TEST O RDERAREYMUNDO Performing Organization Address [facility]/ZIP Co de Phone Number [facility] [place] [address] * (ABNORMAL) POCT Glucose (09/19/2022 4:02 PM EDT) Glucose, POC 221(H) 65 - 199 mg/dL [facility] Comment: Supplemental ranges: <140 mg/dL before meals <180 mg/dL all other times of the day Blood 09/19/2022 4:02 PM EDT 09/19/2022 4:02 PM EDT Olamide Stallings MD POINT OF CARE TEST O RDERAREYMUNDO Performing Organization Address City/[facility] Co de Phone Number [facility] [place] [address] * POCT Glucose (09/19/2022 11:50 AM EDT) Glucose, POC 194 65 - 199 mg/dL [facility] Comment: Supplemental ranges: <140 mg/dL before meals <180 mg/dL all other times of the day Blood 09/19/2022 11:5 0 AM EDT 09/19/2022 11:50 AM EDT Olamide Stallings MD POINT OF CARE TEST O RDERABLES [facility] [place] [address] * (ABNORMAL) POCT Glucose (09/19/2022 6:45 AM EDT) Glucose, POC 219(H) 65 - 199 mg/dL [facility] Comment: Supplemental ranges: <140 mg/dL before meals <180 mg/dL all other times of the day Blood 09/19/2022 6:45 AM EDT 09/19/2022 6:45 AM EDT Alan Hunt MD POINT OF CARE TEST O HUGHERAREYMUNDO Performing Organization Address City/[facility] Co de Phone Number [facility] [place] [address] * (ABNORMAL) Basic Metabolic Panel (non-fasting) (09/19/2022 4:39 AM EDT) Glucose 194 65 - 199 mg/dL [facility] Comment:Diabetes: >=200 mg/d L plus symptoms Blood Urea Nitrogen 21(H) 8 - 18 mg/dL [facility] Creatinine 0.52(L) 0.70 - 1.20 mg/dL [facility] Sodium 134(L) 135 - 145 mmol/L [facility] Potassium 4.6 3.5 - 5.0 mmol/L [facility] Comment: Please note: ??Patients with WBC >100,000 may have falsely elevated Potassium levels. ??For accurate Potassium quantification in these patients send serum separator tube (gold top) for subsequent determinations. ??Contact the Clinical Chemistry Laboratory if there are any questions. Chloride 98 98 - 107 mmol/L [facility] Carbon Dioxide 27 22 - 31 mmol/L [facility] Anion Gap 9 5 - 15 mmol/L [facility] Calcium 9.3 8.5 - 10.5 mg/dL [facility] Est Glomerular Filtration Rate 105 >=60 [...] Pascal MD CHEMISTRY ORDERABLES Performing Organization Address [facility] Co de Phone Number [facility] [place] [address] * Phosphorus (09/19/2022 4:39 AM EDT) Phosphorus 3.3 2.5 - 4.5 mg/dL [facility] Blood 09/19/2022 4:39 AM EDT 09/19/2022 4:51 AM EDT Narrative Resulting Agency Comment Spec In Lab Richard Pascal MD CHEMISTRY ORDERABLES Performing Organization Address [facility] Co de Phone Number [facility] [place] [address] * Magnesium (09/19/2022 4:39 AM EDT) Magnesium 0.82 0.69 - 1.07 mmol/L [facility] Blood 09/19/2022 4:39 AM EDT 09/19/2022 4:51 AM EDT Narrative Resulting Agency Comment Spec In Lab Richard Pascal MD CHEMISTRY ORDERABLES Performing Organization Address [facility]/ZIP Co de Phone Number [facility] [place] [address] * POCT Glucose (09/19/2022 3:49 AM EDT) Glucose, POC 184 65 - 199 mg/dL [facility] Comment: Supplemental ranges: <140 mg/dL before meals <180 mg/dL all other times of the day Blood 09/19/2022 3:49 AM EDT 09/19/2022 3:49 AM EDT Alan Hunt MD POINT OF CARE TEST O RDERABLES [facility] [place] [address] * POCT Glucose (09/18/2022 11:54 PM EDT) Glucose, POC 175 65 - 199 mg/dL [facility] Comment: Supplemental ranges: <140 mg/dL before meals <180 mg/dL all other times of the day Blood 09/18/2022 11:5 4 PM EDT 09/18/2022 11:54 PM EDT Alna Hunt MD POINT OF CARE TEST O RDERABLES Performing Organization Address City/[facility] Co de Phone Number [facility] [place] [address] * (ABNORMAL) POCT Glucose (09/18/2022 9:07 PM EDT) Glucose, POC 242(H) 65 - 199 mg/dL [facility] Comment: Supplemental ranges: <140 mg/dL before meals <180 mg/dL all other times of the day Blood 09/18/2022 9:07 PM EDT 09/18/2022 9:07 PM EDT Alan Hunt MD POINT OF CARE TEST O RDERABLES Performing Organization Address City/[facility] Co de Phone Number [facility] [place] [address] * POCT Glucose (09/18/2022 4:32 PM EDT) Glucose, POC 175 65 - 199 mg/dL [facility] Comment: Supplemental ranges: <140 mg/dL before meals <180 mg/dL all other times of the day Blood 09/18/2022 4:32 PM EDT 09/18/2022 4:32 PM EDT Alan Hunt MD POINT OF CARE TEST O RDERABLES [facility] [place] [address] * POCT Glucose (09/18/2022 2:14 PM EDT) Glucose, POC 188 65 - 199 mg/dL [facility] Comment: Supplemental ranges: <140 mg/dL before meals <180 mg/dL all other times of the day Blood 09/18/2022 2:14 PM EDT 09/18/2022 2:14 PM EDT Alan Hunt MD POINT OF CARE TEST O RDERABLES Performing Organization Address [facility] Co de Phone Number [facility] [place] [address] * (ABNORMAL) POCT Glucose (09/18/2022 11:45 AM EDT) Glucose, POC 247(H) 65 - 199 mg/dL [facility] Comment: Supplemental ranges: <140 mg/dL before meals <180 mg/dL all other times of the day Blood 09/18/2022 11:4 5 AM EDT 09/18/2022 11:45 AM EDT Alan Hunt MD POINT OF CARE TEST O RDERABLES Performing Organization Address City/[facility] Co de Phone Number [facility] [place] [address] * POCT Glucose (09/18/2022 6:47 AM EDT) Glucose, POC 197 65 - 199 mg/dL [facility] Comment: Supplemental ranges: <140 mg/dL before meals <180 mg/dL all other times of the day Blood 09/18/2022 6:47 AM EDT 09/18/2022 6:47 AM EDT Alan Hunt MD POINT OF CARE TEST O RDERABLES [facility] [place] [address] * (ABNORMAL) Basic Metabolic Panel (non-fasting) (09/18/2022 4:53 AM EDT) Glucose 197 65 - 199 mg/dL [facility] Comment:Diabetes: >=200 mg/d L plus symptoms Blood Urea Nitrogen 18 8 - 18 mg/dL [facility] Creatinine 0.53(L) 0.70 - 1.20 mg/dL [facility] Sodium 136 135 - 145 mmol/L [facility] Potassium 4.5 3.5 - 5.0 mmol/L [facility] Comment: Please note: ??Patients with WBC >100,000 may have falsely elevated Potassium levels. ??For accurate Potassium quantification in these patients send serum separator tube (gold top) for subsequent determinations. ??Contact the Clinical Chemistry Laboratory if there are any questions. Chloride 100 98 - 107 mmol/L [facility] Carbon Dioxide 27 22 - 31 mmol/L [facility] Anion Gap 9 5 - 15 mmol/L [facility] Calcium 9.5 8.5 - 10.5 mg/dL [facility] Est Glomerular Filtration Rate 105 >=60 mL/min/1. 73 m?? [facility] Comment: This patient's estimated GFR was [...] Pascal MD CHEMISTRY ORDERABLES Performing Organization Address [facility] Co de Phone Number [facility] [place] [address] * Phosphorus (09/18/2022 4:53 AM EDT) Phosphorus 3.2 2.5 - 4.5 mg/dL [facility] Blood 09/18/2022 4:53 AM EDT 09/18/2022 5:46 AM EDT Narrative Resulting Agency Comment Spec In Lab Richard Pascal MD CHEMISTRY ORDERABLES Performing Organization Address [facility] de Phone Number [facility] [place] [address] * Magnesium (09/18/2022 4:53 AM EDT) Magnesium 0.79 0.69 - 1.07 mmol/L [facility] Blood 09/18/2022 4:53 AM EDT 09/18/2022 5:46 AM EDT Narrative Resulting Agency Comment Spec In Lab Richard Pascal MD CHEMISTRY ORDERABLES Performing Organization Address [facility] Co de Phone Number [facility] [place] [address] * POCT Glucose (09/18/2022 4:06 AM EDT) Glucose, POC 159 65 - 199 mg/dL [facility] Comment: Supplemental ranges: <140 mg/dL before meals <180 mg/dL all other times of the day Blood 09/18/2022 4:06 AM EDT 09/18/2022 4:06 AM EDT Alan Hunt MD POINT OF CARE TEST O RDERABLES Performing Organization Address City/[facility] Co de Phone Number [facility] [place] [address] * POCT Glucose (09/17/2022 11:02 PM EDT) Glucose, POC 141 65 - 199 mg/dL [facility] Comment: Supplemental ranges: <140 mg/dL before meals <180 mg/dL all other times of the day Blood 09/17/2022 11:0 2 PM EDT 09/17/2022 11:02 PM EDT Alan Hunt MD POINT OF CARE TEST O RDERAREYMUNDO [facility] [place] [address] * (ABNORMAL) POCT Glucose (09/17/2022 9:14 PM EDT) Glucose, POC 201(H) 65 - 199 mg/dL [facility] Comment: Supplemental ranges: <140 mg/dL before meals <180 mg/dL all other times of the day Blood 09/17/2022 9:14 PM EDT 09/17/2022 9:14 PM EDT Alan Hunt MD POINT OF CARE TEST O GABRIELLA [facility] [place] [address] * POCT Glucose (09/17/2022 4:14 PM EDT) Glucose, POC 173 65 - 199 mg/dL [facility] Comment: Supplemental ranges: <140 mg/dL before meals <180 mg/dL all other times of the day Blood 09/17/2022 4:14 PM EDT 09/17/2022 4:14 PM EDT Alan Hunt MD POINT OF CARE TEST O RDERAREYMUNDO [facility] [place] [address] * POCT Glucose (09/17/2022 11:34 AM EDT) Glucose, POC 181 65 - 199 mg/dL [facility] Comment: Supplemental ranges: <140 mg/dL before meals <180 mg/dL all other times of the day Blood 09/17/2022 11:3 4 AM EDT 09/17/2022 11:34 AM EDT Alan Hunt MD POINT OF CARE TEST O RDERABLES Performing Organization Address City/[facility]/ZIP Co de Phone Number [facility] [place] [address] * POCT Glucose (09/17/2022 6:57 AM EDT) Glucose, POC 146 65 - 199 mg/dL [facility] Comment: Supplemental ranges: <140 mg/dL before meals <180 mg/dL all other times of the day Blood 09/17/2022 6:57 AM EDT 09/17/2022 6:57 AM EDT Alan Hunt MD POINT OF CARE TEST O GABRIELLA Performing Organization Address [facility] Co de Phone Number [facility] [place] [address] * POCT Glucose (09/17/2022 3:07 AM EDT) Glucose, POC 149 65 - 199 mg/dL [facility] Comment: Supplemental ranges: <140 mg/dL before meals <180 mg/dL all other times of the day Blood 09/17/2022 3:07 AM EDT 09/17/2022 3:07 AM EDT Alan Hunt MD POINT OF CARE TEST O RDERABLES Performing Organization Address City/[facility] Co de Phone Number [facility] [place] [address] * POCT Glucose (09/17/2022 12:59 AM EDT) Glucose, POC 174 65 - 199 mg/dL [facility] Comment: Supplemental ranges: <140 mg/dL before meals <180 mg/dL all other times of the day Blood 09/17/2022 12:5 9 AM EDT 09/17/2022 12:59 AM EDT Alan Hunt MD POINT OF CARE TEST O GABRIELLA [facility] [place] [address] * POCT Glucose (09/16/2022 8:03 PM EDT) Glucose, POC 139 65 - 199 mg/dL [facility] Comment: Supplemental ranges: <140 mg/dL before meals <180 mg/dL all other times of the day Blood 09/16/2022 8:03 PM EDT 09/16/2022 8:03 PM EDT Alan Hunt MD POINT OF CARE TEST O GABRIELLA Performing Organization Address [facility]/ZIP Co de Phone Number [facility] [place] [address] * POCT Glucose (09/16/2022 4:22 PM EDT) Glucose, POC 155 65 - 199 mg/dL [facility] Comment: Supplemental ranges: <140 mg/dL before meals <180 mg/dL all other times of the day Blood 09/16/2022 4:22 PM EDT 09/16/2022 4:22 PM EDT Alan Hunt MD POINT OF CARE TEST O HUGHERAREYMUNDO Performing Organization Address City/[facility] Co de Phone Number [facility] [place] [address] * POCT Glucose (09/16/2022 11:21 AM EDT) Glucose, POC 170 65 - 199 mg/dL [facility] Comment: Supplemental ranges: <140 mg/dL before meals <180 mg/dL all other times of the day Blood 09/16/2022 11:2 1 AM EDT 09/16/2022 11:21 AM EDT Alan Hunt MD POINT [place] [address] * POCT Glucose (09/16/2022 6:33 AM EDT) Glucose, POC 111 65 - 199 mg/dL [facility] Comment: Supplemental ranges: <140 mg/dL before meals <180 mg/dL all other times of the day Blood 09/16/2022 6:33 AM EDT 09/16/2022 6:33 AM EDT Balaji Mayer MD POINT OF CARE TEST O RDERABLES Performing Organization Address [facility] [place] [address] * (ABNORMAL) Differential, Automated (09/16/2022 3:08 AM EDT) Neutrophil % 54.3 % [facility] Neutrophil Absolute 3.63 1.70 - 6.10 x10(3)/mc L [facility] Lymph % 28.2 % [facility] Lymphocytes Abs 1.9 0.9 - 3.2 x10(3)/mc L [facility] Monocyte % 12.4 % [facility] Monocyte Abs 0.8 0.3 - 0.9 x10(3)/mc L [facility] Eos % 2.8 % [facility] Eosinophils Abs 0.2 0.0 - 0.4 x10(3)/mc L [facility] Basophil % 1.3 % [facility] Baso Absolute 0.1 0.0 - 0.1 x10(3)/mc L [facility] Immature Gran % 1.00 % [facility] Comment: Immature granulocytes(IG's)percentage and absolute count will include metamyelocytes, myelocytes, and promyelocytes. Blood smears from CBCs yielding IG's will be scanned manually for concordance. If this scan disagrees with the automated IG or if promyelocytes are noted, a manual differential will be performed. Immature Gran Absolute 0.07(H) 0.00 - 0.04 x10(3)/mc L [facility] Blood 09/16/2022 3:08 AM EDT 09/16/2022 3:12 AM EDT Narrative Resulting Agency Comment Spec In Lab Jigar Streeter MD HEMATOLOGY ORDERABLE S Performing Organization Address City/[facility]/ZIP Co de Phone Number [facility] [place] [address] * (ABNORMAL) Hemogram (09/16/2022 3:08 AM EDT) White Blood Cell 6.7 4.0 - 9.5 x10(3)/[facility] Red Blood Cell 4.64 4.00 - 5.21 x10(6)/[facility] Hemoglobin 10.7(L) 11.7 - 15.5 g/dL [facility] Hematocrit 35.6(L) 35.7 - 45.8 % [facility] Mean Cell Volume 76.7(L) 82.6 - 94.4 fL [facility] Mean Cell Hemoglobin 23.1(L) 27.1 - 32.0 pg [facility] Mean Cell Hemoglobin Concentration 30.1(L) 31.7 - 35.0 g/dL [facility] Platelet 242 145 - 357 x10(3)/ L [facility] RDW Standard Deviation 74.3(H) 37.0 - 46.0 fL [facility] RDW coefficient of variation 28.6(H) 11.5 - 14.1 % [facility] Mean Platelet Volume 9.8 7.6 - 12.9 fL [facility] NRBC% auto 0.0 % [facility] NRBC Absolute 0.000 0.000 - 0.000 x10(3)/mc L [facility] Blood 09/16/2022 3:08 AM EDT 09/16/2022 3:12 AM EDT Narrative Resulting Agency Comment Spec In Lab Jigar Streeter MD HEMATOLOGY ORDERABLE S Performing Organization Address City/[facility]/ZIP Co de Phone Number [facility] [place] [address] * Phosphorus (09/16/2022 3:08 AM EDT) Phosphorus 3.0 2.5 - 4.5 mg/dL [facility] Blood 09/16/2022 3:08 AM EDT 09/16/2022 3:12 AM EDT Narrative Resulting Agency Comment Spec In Lab Richard aPscal MD CHEMISTRY ORDERABLES [facility] [place] [address] * Magnesium (09/16/2022 3:08 AM EDT) Magnesium 0.80 0.69 - 1.07 mmol/L [facility] Blood 09/16/2022 3:08 AM EDT 09/16/2022 3:12 AM EDT Narrative Resulting Agency Comment Spec In Lab Richard Pacsal MD CHEMISTRY ORDERABLES Performing Organization Address [facility] Co de Phone Number [facility] [place] [address] * (ABNORMAL) Basic Metabolic Panel (non-fasting) (09/16/2022 3:08 AM EDT) Glucose 161 65 - 199 mg/dL [facility] Comment:Diabetes: >=200 mg/d L plus symptoms Blood Urea Nitrogen 15 8 - 18 mg/dL [facility] Creatinine 0.47(L) 0.70 - 1.20 mg/dL [facility] Sodium 140 135 - 145 mmol/L [facility] Potassium 4.0 3.5 - 5.0 mmol/L [facility] Comment: Please note: ??Patients with WBC >100,000 may have falsely elevated Potassium levels. ??For accurate Potassium quantification in these patients send serum separator tube (gold top) for subsequent determinations. ??Contact the Clinical Chemistry Laboratory if there are any questions. Chloride 103 98 - 107 mmol/L [facility] Carbon Dioxide 29 22 - 31 mmol/L [facility] Anion Gap 8 5 - 15 mmol/L [facility] Calcium 9.4 8.5 - 10.5 mg/dL [facility] Est Glomerular Filtration Rate 108 >=60 mL/min/1. 73 m?? [facility] Comment: This patient's estimated GFR was [...] Pascal MD CHEMISTRY ORDERABLES Performing Organization Address City/[facility]/ZIP Co de Phone Number [facility] [place] [address] * POCT Glucose (09/16/2022 2:59 AM EDT) Glucose, POC 157 65 - 199 mg/dL [facility] Comment: Supplemental ranges: <140 mg/dL before meals <180 mg/dL all other times of the day Blood 09/16/2022 2:59 AM EDT 09/16/2022 2:59 AM EDT Balaji Mayer MD POINT OF CARE TEST O RDERABLES [facility] [place] [address] * POCT Glucose (09/15/2022 11:15 PM EDT) Glucose, POC 169 65 - 199 mg/dL [facility] Comment: Supplemental ranges: <140 mg/dL before meals <180 mg/dL all other times of the day Blood 09/15/2022 11:1 5 PM EDT 09/15/2022 11:15 PM EDT Balaji Mayer MD POINT OF CARE TEST O GABRIELLA Performing Organization Address City/[facility] Co de Phone Number [facility] [place] [address] * POCT Glucose (09/15/2022 7:17 PM EDT) Glucose, POC 153 65 - 199 mg/dL [facility] Comment: Supplemental ranges: <140 mg/dL before meals <180 mg/dL all other times of the day Blood 09/15/2022 7:17 PM EDT 09/15/2022 7:17 PM EDT Balaji Mayer MD POINT OF CARE TEST O GABRIELLA Performing Organization Address [facility] Co de Phone Number [facility] [place] [address] * POCT Glucose (09/15/2022 3:46 PM EDT) Glucose, POC 136 65 - 199 mg/dL [facility] Comment: Supplemental ranges: <140 mg/dL before meals <180 mg/dL all other times of the day Blood 09/15/2022 3:46 PM EDT 09/15/2022 3:46 PM EDT Balaji Mayer MD POINT OF CARE TEST O GABRIELLA Performing Organization Address [facility] Co de Phone Number [facility] [place] [address] * POCT Glucose (09/15/2022 11:15 AM EDT) Glucose, POC 133 65 - 199 mg/dL [facility] Comment: Supplemental ranges: <140 mg/dL before meals <180 mg/dL all other times of the day Blood 09/15/2022 11:1 5 AM EDT 09/15/2022 11:15 AM EDT Balaji Mayer MD POINT OF CARE TEST O RDERAREYMUNDO Performing Organization Address City/[facility]/ZIP Co de Phone Number [facility] [place] [address] * POCT Glucose (09/15/2022 6:30 AM EDT) Glucose, POC 95 65 - 199 mg/dL [facility] Comment: Supplemental ranges: <140 mg/dL before meals <180 mg/dL all other times of the day Blood 09/15/2022 6:30 AM EDT 09/15/2022 6:30 AM EDT Balaji Mayer MD POINT OF CARE TEST O GABRIELLA Performing Organization Address [facility] Co de Phone Number [facility] [place] [address] * (ABNORMAL) Differential, Automated (09/15/2022 3:00 AM EDT) [facility] Neutrophil % 46.9 % [facility] Neutrophil Absolute 2.78 1.70 - 6.10 x10(3)/mc L [facility] Lymph % 34.9 % [facility] Lymphocytes Abs 2.1 0.9 - 3.2 x10(3)/mc L [facility] Monocyte % 12.1 % [facility] Monocyte Abs 0.7 0.3 - 0.9 x10(3)/mc L [facility] Eos % 3.7 % [facility] Eosinophils Abs 0.2 0.0 - 0.4 x10(3)/mc L [facility] Basophil % 1.2 % [facility] Baso Absolute 0.1 0.0 - 0.1 x10(3)/mc L [facility] Immature Gran % 1.20 % [facility] Comment: Immature granulocytes(IG's)percentage and absolute count will include metamyelocytes, myelocytes, and promyelocytes. Blood smears from CBCs yielding IG's will be scanned manually for concordance. If this scan disagrees with the automated IG or if promyelocytes are noted, a manual differential will be performed. Immature Gran Absolute 0.07(H) 0.00 - 0.04 x10(3)/mc L [facility] Blood 09/15/2022 3:00 AM EDT 09/15/2022 3:07 AM EDT Narrative Resulting Agency Comment Spec In Lab Jigar Streeter MD HEMATOLOGY ORDERABLE S Performing Organization Address City/[facility]/ZIP Co de Phone Number [facility] [place] [address] * (ABNORMAL) Hemogram (09/15/2022 3:00 AM EDT) White Blood Cell 5.9 4.0 - 9.5 x10(3)/[facility] Red Blood Cell 4.43 4.00 - 5.21 x10(6)/ L [facility] Hemoglobin 10.2(L) 11.7 - 15.5 g/dL [facility] Hematocrit 34.4(L) 35.7 - 45.8 % [facility] Mean Cell Volume 77.7(L) 82.6 - 94.4 fL [facility] Mean Cell Hemoglobin 23.0(L) 27.1 - 32.0 pg [facility] Mean Cell Hemoglobin Concentration 29.7(L) 31.7 - 35.0 g/dL [facility] Platelet 252 145 - 357 x10(3)/ L [facility] RDW Standard Deviation 76.5(H) 37.0 - 46.0 fL [facility] RDW coefficient of variation 29.1(H) 11.5 - 14.1 % [facility] Mean Platelet Volume 9.7 7.6 - 12.9 fL [facility] NRBC% auto 0.0 % [facility] NRBC Absolute 0.000 0.000 - 0.000 x10(3)/mc L [facility] Blood 09/15/2022 3:00 AM EDT 09/15/2022 3:07 AM EDT Narrative Resulting Agency Comment Spec In Lab Jigar Streeter MD HEMATOLOGY ORDERABLE S Performing Organization Address City/[facility]/ZIP Co de Phone Number [facility] [place] [address] * Phosphorus (09/15/2022 3:00 AM EDT) Phosphorus 2.6 2.5 - 4.5 mg/dL [facility] Blood 09/15/2022 3:00 AM EDT 09/15/2022 3:07 AM EDT Narrative Resulting Agency Comment Spec In Lab Richard Pascal MD CHEMISTRY ORDERABLES Performing Organization Address [facility] Co de Phone Number [facility] [place] [address] * Magnesium (09/15/2022 3:00 AM EDT) Magnesium 0.77 0.69 - 1.07 mmol/L [facility] Blood 09/15/2022 3:00 AM EDT 09/15/2022 3:07 AM EDT Narrative Resulting Agency Comment Spec In Lab Richard Pascal MD CHEMISTRY ORDERABLES Performing Organization Address [facility] de Phone Number [facility] [place] [address] * (ABNORMAL) Basic Metabolic Panel (non-fasting) (09/15/2022 3:00 AM EDT) Glucose 121 65 - 199 mg/dL [facility] Comment:Diabetes: >=200 mg/d L plus symptoms Blood Urea Nitrogen 11 8 - 18 mg/dL [facility] Creatinine 0.44(L) 0.70 - 1.20 mg/dL [facility] Sodium 140 135 - 145 mmol/L [facility] Potassium 4.0 3.5 - 5.0 mmol/L [facility] Comment: Please note: ??Patients with WBC >100,000 may have falsely elevated Potassium levels. ??For accurate Potassium quantification in these patients send serum separator tube (gold top) for subsequent determinations. ??Contact the Clinical Chemistry Laboratory if there are any questions. Chloride 102 98 - 107 mmol/L [facility] Carbon Dioxide 27 22 - 31 mmol/L [facility] Anion Gap 11 5 - 15 mmol/L [facility] Calcium 9.2 8.5 - 10.5 mg/dL [facility] Est Glomerular Filtration Rate 109 >=60 mL/min/1. 73 m?? [facility] Comment: This patient's estimated GFR was [...] Pascal MD CHEMISTRY ORDERABLES Performing Organization Address [facility] Co de Phone Number [facility] [place] [address] * POCT Glucose (09/15/2022 2:58 AM EDT) Glucose, POC 114 65 - 199 mg/dL [facility] Comment: Supplemental ranges: <140 mg/dL before meals <180 mg/dL all other times of the day Blood 09/15/2022 2:58 AM EDT 09/15/2022 2:58 AM EDT Balaji Mayer MD POINT OF CARE TEST O RDERABLES Performing Organization Address City/[facility]/ZIP Co de Phone Number [facility] [place] [address] * POCT Glucose (09/14/2022 11:29 PM EDT) Glucose, POC 124 65 - 199 mg/dL [facility] Comment: Supplemental ranges: <140 mg/dL before meals <180 mg/dL all other times of the day Blood 09/14/2022 11:2 9 PM EDT 09/14/2022 11:29 PM EDT Balaji Mayer MD POINT OF CARE TEST O RDERABLES [facility] [place] [address] * XR Hip 2-3 Views Left (09/14/2022 [...] who have questions please contact the health animal care taker that requested your imaging first. ? Narrative [...] patients who have questions please contactthe health animal care taker that requested your imaging first. Balaji Mayer MD IMG DX ORDERABLES * POCT Glucose (09/14/2022 7:22 PM EDT) Glucose, POC 120 65 - 199 mg/dL [facility] Comment: Supplemental ranges: <140 mg/dL before meals <180 mg/dL all other times of the day Blood 09/14/2022 7:22 PM EDT 09/14/2022 7:22 PM EDT Balaji Mayer MD POINT OF CARE TEST O RDERABLES [facility] [place] [address] * POCT Glucose (09/14/2022 3:38 PM EDT) Glucose, POC 132 65 - 199 mg/dL [facility] Comment: Supplemental ranges: <140 mg/dL before meals <180 mg/dL all other times of the day Blood 09/14/2022 3:38 PM EDT 09/14/2022 3:38 PM EDT Balaji Mayer MD POINT OF CARE TEST O RDERABLES Performing Organization Address [facility] Co de Phone Number [facility] [place] [address] * POCT Glucose (09/14/2022 11:01 AM EDT) Glucose, POC 128 65 - 199 mg/dL [facility] Comment: Supplemental ranges: <140 mg/dL before meals <180 mg/dL all other times of the day Blood 09/14/2022 11:0 1 AM EDT 09/14/2022 11:01 AM EDT Balaji Mayer MD POINT OF CARE TEST O RDERAREYMUNDO Performing Organization Address [facility] Co de Phone Number [facility] [place] [address] * POCT Glucose (09/14/2022 6:33 AM EDT) Glucose, POC 94 65 - 199 mg/dL [facility] Comment: Supplemental ranges: <140 mg/dL before meals <180 mg/dL all other times of the day Blood 09/14/2022 6:33 AM EDT 09/14/2022 6:33 AM EDT Chong Chao MD POINT OF CARE TEST O RDERABLES Performing Organization Address [facility] Co de Phone Number [facility] [place] [address] * (ABNORMAL) Differential, Automated (09/14/2022 3:33 AM EDT) Neutrophil % 49.0 % [facility] Neutrophil Absolute 2.69 1.70 - 6.10 x10(3)/mc L [facility] Lymph % 32.4 % [facility] Lymphocytes Abs 1.8 0.9 - 3.2 x10(3)/mc L [facility] Monocyte % 12.4 % [facility] Monocyte Abs 0.7 0.3 - 0.9 x10(3)/ L [facility] Eos % 4.2 % [facility] Eosinophils Abs 0.2 0.0 - 0.4 x10(3)/[facility]ATORY Basophil % 1.1 % [facility] Baso Absolute 0.1 0.0 - 0.1 x10(3)/mc L [facility] Immature Gran % 0.90 % [facility] Comment: Immature granulocytes(IG's)percentage and absolute count will include metamyelocytes, myelocytes, and promyelocytes. Blood smears from CBCs yielding IG's will be scanned manually for concordance. If this scan disagrees with the automated IG or if promyelocytes are noted, a manual differential will be performed. Immature Gran Absolute 0.05(H) 0.00 - 0.04 x10(3)/ L [facility] Blood 09/14/2022 3:33 AM EDT 09/14/2022 5:07 AM EDT Narrative Resulting Agency Comment Spec In Lab Jigar Streeter MD HEMATOLOGY ORDERABLE S Performing Organization Address City/State/[facility] Co de Phone Number [facility] [place] [address] * (ABNORMAL) Hemogram (09/14/2022 3:33 AM EDT) White Blood Cell 5.5 4.0 - 9.5 x10(3)/mc L [facility] Red Blood Cell 4.39 4.00 - 5.21 x10(6)/ L [facility] Hemoglobin 10.1(L) 11.7 - 15.5 g/dL [facility] [facility] Hematocrit 33.7(L) 35.7 - 45.8 % [facility] Mean Cell Volume 76.8(L) 82.6 - 94.4 fL [facility] Mean Cell Hemoglobin 23.0(L) 27.1 - 32.0 pg [facility] Mean Cell Hemoglobin Concentration 30.0(L) 31.7 - 35.0 g/dL [facility] Platelet 246 145 - 357 x10(3)/mc L [facility] RDW Standard Deviation 76.3(H) 37.0 - 46.0 fL [facility] RDW coefficient of variation 29.2(H) 11.5 - 14.1 % [facility] Mean Platelet Volume 10.2 7.6 - 12.9 fL [facility] NRBC% auto 0.0 % [facility] NRBC Absolute 0.000 0.000 - 0.000 x10(3)/mc L [facility] Blood 09/14/2022 3:33 AM EDT 09/14/2022 5:07 AM EDT Narrative Resulting Agency Comment Spec In Lab Jigar Streeter MD HEMATOLOGY ORDERABLE S Performing Organization Address [facility] [place] [address] * Phosphorus (09/14/2022 3:33 AM EDT) Phosphorus 2.9 2.5 - 4.5 mg/dL [facility] Blood 09/14/2022 3:33 AM EDT 09/14/2022 5:07 AM EDT Narrative Resulting Agency Comment Spec In Lab Richard Pascal MD CHEMISTRY ORDERABLES Performing Organization Address City/[facility] Co de Phone Number [facility] [place] [address] * Magnesium (09/14/2022 3:33 AM EDT) Magnesium 0.74 0.69 - 1.07 mmol/L [facility] Blood 09/14/2022 3:33 AM EDT 09/14/2022 5:07 AM EDT Narrative Resulting Agency Comment Spec In Lab Richard Pascal MD CHEMISTRY ORDERABLES Performing Organization Address City/[facility] Co de Phone Number [facility] [place] [address] * (ABNORMAL) Basic Metabolic Panel (non-fasting) (09/14/2022 3:33 AM EDT) Glucose Not Perf 65 - 199 [facility] Comment: Sample improperly processed prior to receipt. Diabetes: >=200 mg/dL plus symptoms Blood Urea Nitrogen 10 8 - 18 mg/dL [facility] Creatinine 0.45(L) 0.70 - 1.20 mg/dL [facility] Sodium 140 135 - 145 mmol/L [facility] Potassium 4.1 3.5 - 5.0 mmol/L [facility] Comment: Please note: ??Patients with WBC >100,000 may have falsely elevated Potassium levels. ??For accurate Potassium quantification in these patients send serum separator tube (gold top) for subsequent determinations. ??Contact the Clinical Chemistry Laboratory if there are any questions. Chloride 102 98 - 107 mmol/L [facility] Carbon Dioxide 28 22 - 31 mmol/L [facility] Anion Gap 10 5 - 15 mmol/L [facility] Calcium 9.1 8.5 - 10.5 mg/dL [facility] Est Glomerular Filtration Rate 109 >=60 mL/min/1. 73 m?? [facility] Comment: This patient's estimated GFR was [...] In Lab Richard Pascal MD CHEMISTRY ORDERABLES [facility] [address] [place] [address] * POCT Glucose (09/14/2022 3:29 AM EDT) Glucose, POC 109 65 - 199 mg/dL [facility] Comment: Supplemental ranges: <140 mg/dL before meals <180 mg/dL all other times of the day Blood 09/14/2022 3:29 AM EDT 09/14/2022 3:29 AM EDT Chong Chao MD POINT OF CARE TEST O GABRIELLA Performing Organization Address City/[facility]/ZIP Co de Phone Number [facility] [place] [address] * POCT Glucose (09/13/2022 11:30 PM EDT) Glucose, POC 147 65 - 199 mg/dL [facility] Comment: Supplemental ranges: <140 mg/dL before meals <180 mg/dL all other times of the day Blood 09/13/2022 11:3 0 PM EDT 09/13/2022 11:30 PM EDT Chong Chao MD POINT OF CARE TEST O GABRIELLA Performing Organization Address [facility] Co de Phone Number [facility] [place] [address] * POCT Glucose (09/13/2022 7:24 PM EDT) Glucose, POC 149 65 - 199 mg/dL [facility] Comment: Supplemental ranges: <140 mg/dL before meals <180 mg/dL all other times of the day Blood 09/13/2022 7:24 PM EDT 09/13/2022 7:24 PM EDT Chong Chao MD POINT OF CARE TEST O GABRIELLA Performing Organization Address City/[facility] Co de Phone Number [facility] [place] [address] * POCT Glucose (09/13/2022 3:40 PM EDT) Glucose, POC 126 65 - 199 mg/dL [facility] Comment: Supplemental ranges: <140 mg/dL before meals <180 mg/dL all other times of the day Blood 09/13/2022 3:40 PM EDT 09/13/2022 3:40 PM EDT Chong Chao MD POINT OF CARE TEST O RDERABLES [facility] [place] [address] * (ABNORMAL) Basic Metabolic Panel (non-fasting) (09/13/2022 12:38 PM EDT) Pathologist [facility] Glucose 115 65 - 199 mg/dL [facility] Comment:Diabetes: >=200 mg/d L plus symptoms Blood Urea Nitrogen 8 8 - 18 mg/dL [facility] Creatinine 0.50(L) 0.70 - 1.20 mg/dL [facility] Sodium 140 135 - 145 mmol/L [facility] Potassium 3.8 3.5 - 5.0 mmol/L [facility] Comment: Please note: ??Patients with WBC >100,000 may have falsely elevated Potassium levels. ??For accurate Potassium quantification in these patients send serum separator tube (gold top) for subsequent determinations. ??Contact the Clinical Chemistry Laboratory if there are any questions. Chloride 101 98 - 107 mmol/L [facility] Carbon Dioxide 26 22 - 31 mmol/L [facility] Anion Gap 13 5 - 15 mmol/L [facility] Calcium 9.1 8.5 - 10.5 mg/dL [facility] Est Glomerular Filtration Rate 106 >=60 mL/min/1. 73 m?? [facility] Comment: This patient's estimated GFR was [...] Pascal MD CHEMISTRY ORDERABLES Performing Organization Address [facility] Co de Phone Number [facility] [place] [address] * POCT Glucose (09/13/2022 12:08 PM EDT) Glucose, POC 113 65 - 199 mg/dL [facility] Comment: Supplemental ranges: <140 mg/dL before meals <180 mg/dL all other times of the day Blood 09/13/2022 12:0 8 PM EDT 09/13/2022 12:08 PM EDT Chong Chao MD POINT OF CARE TEST O RDERABLES Performing Organization Address [facility] Co de Phone Number [facility] [place] [address] * POCT Glucose (09/13/2022 6:31 AM EDT) Glucose, POC 87 65 - 199 mg/dL [facility] Comment: Supplemental ranges: <140 mg/dL before meals <180 mg/dL all other times of the day Blood 09/13/2022 6:31 AM EDT 09/13/2022 6:31 AM EDT Chong Chao MD POINT OF CARE TEST O RDERABLES Performing Organization Address [facility] Co de Phone Number [facility] [place] [address] * POCT Glucose (09/13/2022 3:16 AM EDT) Glucose, POC 90 65 - 199 mg/dL [facility] Comment: Supplemental ranges: <140 mg/dL before meals <180 mg/dL all other times of the day Blood 09/13/2022 3:16 AM EDT 09/13/2022 3:16 AM EDT Chong Chao MD POINT [place] [address] * (ABNORMAL) Differential, Automated (09/13/2022 3:15 AM EDT) Neutrophil % 44.0 % [facility] Neutrophil Absolute 2.31 1.70 - 6.10 x10(3)/[facility] Lymph % 39.0 % [facility] Lymphocytes Abs 2.0 0.9 - 3.2 x10(3)/[facility] Monocyte % 10.7 % [facility] Monocyte Abs 0.6 0.3 - 0.9 x10(3)/[facility] Eos % 3.8 % [facility] Eosinophils Abs 0.2 0.0 - 0.4 x10(3)/[facility] Basophil % 1.5 % [facility] Baso Absolute 0.1 0.0 - 0.1 x10(3)/[facility] Immature Gran % 1.00 % [facility] Comment: Immature granulocytes(IG's)percentage and absolute count will include metamyelocytes, myelocytes, and promyelocytes. Blood smears from CBCs yielding IG's will be scanned manually for concordance. If this scan disagrees with the automated IG or if promyelocytes are noted, a manual differential will be performed. Immature Gran Absolute 0.05(H) 0.00 - 0.04 x10(3)/[facility] Blood 09/13/2022 3:15 AM EDT 09/13/2022 3:27 AM EDT Narrative Resulting Agency Comment Spec In Lab Jigar Streeter MD HEMATOLOGY ORDERABLE S Performing Organization Address City/[facility]/[place] [address] * (ABNORMAL) Hemogram (09/13/2022 3:15 AM EDT) White Blood Cell 5.2 4.0 - 9.5 x10(3)/[facility] Red Blood Cell 3.99(L) 4.00 - 5.21 x10(6)/mc L [facility] Hemoglobin 9.2(L) 11.7 - 15.5 g/dL [facility] Hematocrit 30.9(L) 35.7 - 45.8 % [facility] Mean Cell Volume 77.4(L) 82.6 - 94.4 fL [facility] Mean Cell Hemoglobin 23.1(L) 27.1 - 32.0 pg [facility] Mean Cell Hemoglobin Concentration 29.8(L) 31.7 - 35.0 g/dL [facility] Platelet 239 145 - 357 x10(3)/mc L [facility] RDW Standard Deviation 78.1(H) 37.0 - 46.0 fL [facility] RDW coefficient of variation 29.6(H) 11.5 - 14.1 % [facility] Mean Platelet Volume 9.8 7.6 - 12.9 fL [facility] NRBC% auto 0.0 % [facility] NRBC Absolute 0.000 0.000 - 0.000 x10(3)/mc L [facility] Blood 09/13/2022 3:15 AM EDT 09/13/2022 3:27 AM EDT Narrative Resulting Agency Comment Spec In Lab Jigar Streeter MD HEMATOLOGY ORDERABLE S [facility] [place] [address] * Phosphorus (09/13/2022 3:15 AM EDT) Phosphorus 3.0 2.5 - 4.5 mg/dL [facility] Blood 09/13/2022 3:15 AM EDT 09/13/2022 3:27 AM EDT Narrative Resulting Agency Comment Spec In Lab Richard Pascal MD CHEMISTRY ORDERABLES [facility] [place] [address] * Magnesium (09/13/2022 3:15 AM EDT) Magnesium 0.78 0.69 - 1.07 mmol/L [facility] Blood 09/13/2022 3:15 AM EDT 09/13/2022 3:27 AM EDT Narrative Resulting Agency Comment Spec In Lab Richard Pascal MD CHEMISTRY ORDERABLES [facility] [place] [address] * (ABNORMAL) Basic Metabolic Panel (non-fasting) (09/13/2022 3:15 AM EDT) Glucose 87 65 - 199 mg/dL [facility] Comment:Diabetes: >=200 mg/d L plus symptoms Blood Urea Nitrogen 8 8 - 18 mg/dL [facility] Creatinine 0.52(L) 0.70 - 1.20 mg/dL [facility] Sodium 141 135 - 145 mmol/L [facility] Potassium 3.6 3.5 - 5.0 mmol/L [facility] Comment: Please note: ??Patients with WBC >100,000 may have falsely elevated Potassium levels. ??For accurate Potassium quantification in these patients send serum separator tube (gold top) for subsequent determinations. ??Contact the Clinical Chemistry Laboratory if there are any questions. Chloride 103 98 - 107 mmol/L [facility] Carbon Dioxide 29 22 - 31 mmol/L [facility] Anion Gap 9 5 - 15 mmol/L [facility] Calcium 8.8 8.5 - 10.5 mg/dL [facility] Est Glomerular Filtration Rate 105 >=60 mL/min/1. 73 m?? [facility] Comment: This patient's estimated GFR was [...] MD CHEMISTRY ORDERABL ES Performing Organization Address [facility] Co de Phone Number [facility] [place] [address] * POCT Glucose (09/12/2022 11:29 PM EDT) Glucose, POC 105 65 - 199 mg/dL [facility] Comment: Supplemental ranges: <140 mg/dL before meals <180 mg/dL all other times of the day Blood 09/12/2022 11:2 9 PM EDT 09/12/2022 11:29 PM EDT Chong Chao MD POINT OF CARE TEST O RDERABLES Performing Organization Address [facility] Co de Phone Number [facility] [place] [address] * POCT Glucose (09/12/2022 7:24 PM EDT) Glucose, POC 121 65 - 199 mg/dL [facility] Comment: Supplemental ranges: <140 mg/dL before meals <180 mg/dL all other times of the day Blood 09/12/2022 7:24 PM EDT 09/12/2022 7:24 PM EDT Chong Chao MD POINT OF CARE TEST O RDERAREYMUNDO Performing Organization Address [facility] Co de Phone Number [facility] [place] [address] * (ABNORMAL) Basic Metabolic Panel (non-fasting) (09/12/2022 3:40 PM EDT) Glucose 103 65 - 199 mg/dL [facility] Comment:Diabetes: >=200 mg/d L plus symptoms Blood Urea Nitrogen 7(L) 8 - 18 mg/dL [facility] Creatinine 0.53(L) 0.70 - 1.20 mg/dL [facility] Sodium 140 135 - 145 mmol/L [facility] Potassium 4.0 3.5 - 5.0 mmol/L [facility] Comment: Please note: ??Patients with WBC >100,000 may have falsely elevated Potassium levels. ??For accurate Potassium quantification in these patients send serum separator tube (gold top) for subsequent determinations. ??Contact the Clinical Chemistry Laboratory if there are any questions. Chloride 102 98 - 107 mmol/L [facility] Carbon Dioxide 24 22 - 31 mmol/L [facility] Anion Gap 14 5 - 15 mmol/L [facility] Calcium 9.4 8.5 - 10.5 mg/dL [facility] Est Glomerular Filtration Rate 105 >=60 mL/min/1. 73 m?? [facility] Comment: This patient's estimated GFR was [...] In Lab Jigar Streeter MD CHEMISTRY ORDERABLES [facility] [place] [address] * Magnesium (09/12/2022 3:40 PM EDT) Magnesium 0.93 0.69 - 1.07 mmol/L [facility] Blood 09/12/2022 3:40 PM EDT 09/12/2022 3:51 PM EDT Narrative Resulting Agency Comment Spec In Lab Richard Pascal MD CHEMISTRY ORDERABLES [facility] [place] [address] * POCT Glucose (09/12/2022 3:36 PM EDT) Glucose, POC 109 65 - 199 mg/dL [facility] Comment: Supplemental ranges: <140 mg/dL before meals <180 mg/dL all other times of the day Blood 09/12/2022 3:36 PM EDT 09/12/2022 3:36 PM EDT Chong Chao MD POINT OF CARE TEST O RDERABLES [facility] [place] [address] * POCT Glucose (09/12/2022 11:37 AM EDT) Glucose, POC 84 65 - 199 mg/dL [facility] Comment: Supplemental ranges: <140 mg/dL before meals <180 mg/dL all other times of the day Blood 09/12/2022 11:3 7 AM EDT 09/12/2022 11:37 AM EDT Chong Chao MD POINT OF CARE TEST O RDERABLES Performing Organization Address City/[facility]/ZIP Co de Phone Number [facility] [place] [address] * POCT Glucose (09/12/2022 6:33 AM EDT) Glucose, POC 98 65 - 199 mg/dL [facility] Comment: Supplemental ranges: <140 mg/dL before meals <180 mg/dL all other times of the day Blood 09/12/2022 6:33 AM EDT 09/12/2022 6:33 AM EDT Molina Flores MD POINT OF CARE TEST ORDERABLES [facility] [place] [address] * (ABNORMAL) Differential, Automated (09/12/2022 3:25 AM EDT) Neutrophil % 79.2 % [facility] Neutrophil Absolute 4.22 1.70 - 6.10 x10(3)/[facility] Lymph % 16.4 % [facility] Lymphocytes Abs 0.9 0.9 - 3.2 x10(3)/ L [facility] Monocyte % 3.2 % [facility] Monocyte Abs 0.2(L) 0.3 - 0.9 x10(3)/[facility] Eos % 0.0 % [facility] Eosinophils Abs 0.0 0.0 - 0.4 x10(3)/[facility] Basophil % 0.6 % [facility] Baso Absolute 0.0 0.0 - 0.1 x10(3)/[facility] Immature Gran % 0.60 % [facility] Comment: Immature granulocytes(IG's)percentage and absolute count will include metamyelocytes, myelocytes, and promyelocytes. Blood smears from CBCs yielding IG's will be scanned manually for concordance. If this scan disagrees with the automated IG or if promyelocytes are noted, a manual differential will be performed. Immature Gran Absolute 0.03 0.00 - 0.04 x10(3)/[facility] Blood 09/12/2022 3:25 AM EDT 09/12/2022 3:33 AM EDT Narrative Resulting Agency Comment Spec In Lab Jigar Streeter MD HEMATOLOGY ORDERABLE S [facility] [place] [address] * (ABNORMAL) Hemogram (09/12/2022 3:25 AM EDT) White Blood Cell 5.3 4.0 - 9.5 x10(3)/[facility] Red Blood Cell 4.23 4.00 - 5.21 x10(6)/[facility] Comment:Dimorphic RBC popula tion. Hemoglobin 9.6(L) 11.7 - 15.5 g/dL [facility] Hematocrit 32.4(L) 35.7 - 45.8 % [facility] Mean Cell Volume 76.6(L) 82.6 - 94.4 fL [facility] Mean Cell Hemoglobin 22.7(L) 27.1 - 32.0 pg [facility] Mean Cell Hemoglobin Concentration 29.6(L) 31.7 - 35.0 g/dL [facility] Platelet 241 145 - 357 x10(3)/mc L [facility] RDW Standard Deviation 78.0(H) 37.0 - 46.0 fL [facility] RDW coefficient of variation 29.6(H) 11.5 - 14.1 % [facility] Mean Platelet Volume 9.9 7.6 - 12.9 fL [facility] NRBC% auto 0.0 % [facility] NRBC Absolute 0.000 0.000 - 0.000 x10(3)/mc L [facility] Blood 09/12/2022 3:25 AM EDT 09/12/2022 3:33 AM EDT Narrative Resulting Agency Comment Spec In Lab Jigar Streeter MD HEMATOLOGY ORDERABLE S [facility] [place] [address] * Phosphorus (09/12/2022 3:25 AM EDT) Phosphorus 3.6 2.5 - 4.5 mg/dL [facility] Blood 09/12/2022 3:25 AM EDT 09/12/2022 3:33 AM EDT Narrative Resulting Agency Comment Spec In Lab Richard Pascal MD CHEMISTRY ORDERABLES Performing Organization Address City/[facility]/ZIP Co de Phone Number [facility] [place] [address] * (ABNORMAL) Basic Metabolic Panel (non-fasting) (09/12/2022 3:25 AM EDT) Glucose 123 65 - 199 mg/dL [facility] Comment:Diabetes: >=200 mg/d L plus symptoms Blood Urea Nitrogen 8 8 - 18 mg/dL [facility] Creatinine 0.49(L) 0.70 - 1.20 mg/dL [facility] Sodium 139 135 - 145 mmol/L [facility] Potassium 4.5 3.5 - 5.0 mmol/L [facility] Comment: result [id number] Please note: ??Patients with WBC >100,000 may have falsely elevated Potassium levels. ??For accurate Potassium quantification in these patients send serum separator tube (gold top) for subsequent determinations. ??Contact the Clinical Chemistry Laboratory if there are any questions. Chloride 104 98 - 107 mmol/L [facility] Carbon Dioxide 26 22 - 31 mmol/L [facility] Anion Gap 9 5 - 15 mmol/L [facility] Calcium 9.2 8.5 - 10.5 mg/dL [facility] Est Glomerular Filtration Rate 106 >=60 mL/min/1. 73 m?? [facility] Comment: This patient's estimated GFR was [...] In Lab Richard Pascal MD CHEMISTRY ORDERABLES [facility] [place] [address] [place] [address] * Magnesium (09/12/2022 3:25 AM EDT) Magnesium 0.76 0.69 - 1.07 mmol/L [facility] Blood 09/12/2022 3:25 AM EDT 09/12/2022 3:33 AM EDT Narrative Resulting Agency Comment Spec In Lab Richard Pascal MD CHEMISTRY ORDERABLES [facility] [place] [address] * POCT Glucose (09/12/2022 3:07 AM EDT) Glucose, POC 124 65 - 199 mg/dL [facility] Comment: Supplemental ranges: <140 mg/dL before meals <180 mg/dL all other times of the day Blood 09/12/2022 3:07 AM EDT 09/12/2022 3:07 AM EDT Molina Flores MD POINT OF CARE TEST ORDERABLES [facility] [place] [address] * POCT Glucose (09/11/2022 11:30 PM EDT) Glucose, POC 175 65 - 199 mg/dL [facility] Comment: Supplemental ranges: <140 mg/dL before meals <180 mg/dL all other times of the day Blood 09/11/2022 11:3 0 PM EDT 09/11/2022 11:30 PM EDT Molina Flores MD POINT OF CARE TEST ORDERABLES [facility] [place] [address] * POCT Glucose (09/11/2022 7:59 PM EDT) Glucose, POC 139 65 - 199 mg/dL [facility] Comment: Supplemental ranges: <140 mg/dL before meals <180 mg/dL all other times of the day Blood 09/11/2022 7:59 PM EDT 09/11/2022 7:59 PM EDT Molina Flores MD POINT OF CARE TEST ORDERABLES [facility] [place] [address] * POCT Glucose (09/11/2022 5:25 PM EDT) Glucose, POC 156 65 - 199 mg/dL [facility] Comment: Supplemental ranges: <140 mg/dL before meals <180 mg/dL all other times of the day Blood 09/11/2022 5:25 PM EDT 09/11/2022 5:25 PM EDT Molina Flores MD POINT OF CARE TEST ORDERABLES [facility] [address] [place] [address] * IR G-Tube Placement (09/11/2022 5:19 PM [...] barrier technique was used throughout. ??A 4 Polish glide catheter??was placed??as a??nasoenteric tube??under fluoroscopy with [...] Glucose, POC 154 65 - 199 mg/dL [facility] Comment: Supplemental ranges: <140 mg/dL before meals <180 mg/dL all other times of the day Blood 09/11/2022 11:3 5 AM EDT 09/11/2022 11:35 AM EDT Molina Flores MD POINT OF CARE TEST ORDERABLES [facility] [place] [address] * POCT Glucose (09/11/2022 6:47 AM EDT) Glucose, POC 147 65 - 199 mg/dL [facility] Comment: Supplemental ranges: <140 mg/dL before meals <180 mg/dL all other times of the day Blood 09/11/2022 6:47 AM EDT 09/11/2022 6:47 AM EDT Molina Flores MD POINT OF CARE TEST ORDERABLES Performing Organization Address City/[facility]/[place] [address] * Differential, Automated (09/11/2022 4:05 AM EDT) Neutrophil % 53.0 % [facility] Neutrophil Absolute 2.39 1.70 - 6.10 x10(3)/[facility] Lymph % 26.4 % [facility] Lymphocytes Abs 1.2 0.9 - 3.2 x10(3)/[facility] Monocyte % 12.4 % [facility] Monocyte Abs 0.6 0.3 - 0.9 x10(3)/[facility] Eos % 6.9 % [facility] Eosinophils Abs 0.3 0.0 - 0.4 x10(3)/[facility] Basophil % 0.9 % [facility] Baso Absolute 0.0 0.0 - 0.1 x10(3)/[facility] Immature Gran % 0.40 % [facility] Comment: Immature granulocytes(IG's)percentage and absolute count will include metamyelocytes, myelocytes, and promyelocytes. Blood smears from CBCs yielding IG's will be scanned manually for concordance. If this scan disagrees with the automated IG or if promyelocytes are noted, a manual differential will be performed. Immature Gran Absolute 0.02 0.00 - 0.04 x10(3)/[facility] Blood 09/11/2022 4:05 AM EDT 09/11/2022 4:12 AM EDT Narrative Resulting Agency Comment Spec In Lab Jigar Streeter MD HEMATOLOGY ORDERABLE S Performing Organization Address [facility] [place] [place] [address] * (ABNORMAL) Hemogram (09/11/2022 4:05 AM EDT) White Blood Cell 4.5 4.0 - 9.5 x10(3)/mc L [facility] Red Blood Cell 3.93(L) 4.00 - 5.21 x10(6)/mc L [facility] Hemoglobin 9.0(L) 11.7 - 15.5 g/dL [facility] Hematocrit 30.2(L) 35.7 - 45.8 % [facility] Mean Cell Volume 76.8(L) 82.6 - 94.4 fL [facility] Mean Cell Hemoglobin 22.9(L) 27.1 - 32.0 pg [facility] Mean Cell Hemoglobin Concentration 29.8(L) 31.7 - 35.0 g/dL [facility] Platelet 219 145 - 357 x10(3)/mc L [facility] RDW Standard Deviation 78.3(H) 37.0 - 46.0 fL [facility] RDW coefficient of variation 30.1(H) 11.5 - 14.1 % [facility] Mean Platelet Volume 9.8 7.6 - 12.9 fL [facility] NRBC% auto 0.0 % [facility] NRBC Absolute 0.000 0.000 - 0.000 x10(3)/ L [facility] Blood 09/11/2022 4:05 AM EDT 09/11/2022 4:12 AM EDT Narrative Resulting Agency Comment Spec In Lab Jigar Streeter MD HEMATOLOGY ORDERABLE S Performing Organization Address City/State/[facility] Co de Phone Number [facility] [place] [address] * Phosphorus (09/11/2022 4:05 AM EDT) Phosphorus 2.8 2.5 - 4.5 mg/dL [facility] Blood 09/11/2022 4:05 AM EDT 09/11/2022 4:12 AM EDT Narrative Resulting Agency Comment Spec In Lab Richard Pascal MD CHEMISTRY ORDERABLES Performing Organization Address City/[facility] Co de Phone Number [facility] [place] [address] * (ABNORMAL) Basic Metabolic Panel (non-fasting) (09/11/2022 4:05 AM EDT) Glucose 195 65 - 199 mg/dL [facility] Comment:Diabetes: >=200 mg/d L plus symptoms Blood Urea Nitrogen 6(L) 8 - 18 mg/dL [facility] Creatinine 0.44(L) 0.70 - 1.20 mg/dL [facility] Sodium 143 135 - 145 mmol/L [facility] Potassium 3.4(L) 3.5 - 5.0 mmol/L [facility] Comment: Please note: ??Patients with WBC >100,000 may have falsely elevated Potassium levels. ??For accurate Potassium quantification in these patients send serum separator tube (gold top) for subsequent determinations. ??Contact the Clinical Chemistry Laboratory if there are any questions. Chloride 107 98 - 107 mmol/L [facility] Carbon Dioxide 28 22 - 31 mmol/L [facility] Anion Gap 8 5 - 15 mmol/L [facility] Calcium 8.9 8.5 - 10.5 mg/dL [facility] Est Glomerular Filtration Rate 109 >=60 mL/min/1. 73 m?? [facility] Comment: This patient's estimated GFR was [...] Pascal MD CHEMISTRY ORDERABLES Performing Organization Address [facility]/ZIP Co de Phone Number [facility] [place] [address] * POCT Glucose (09/11/2022 3:56 AM EDT) Glucose, POC 121 65 - 199 mg/dL [facility] Comment: Supplemental ranges: <140 mg/dL before meals <180 mg/dL all other times of the day Blood 09/11/2022 3:56 AM EDT 09/11/2022 3:56 AM EDT Molina Flores MD POINT OF CARE TEST ORDERABLES [facility] [place] [address] * POCT Glucose (09/11/2022 12:03 AM EDT) Glucose, POC 174 65 - 199 mg/dL [facility] Comment: Supplemental ranges: <140 mg/dL before meals <180 mg/dL all other times of the day Blood 09/11/2022 12:0 3 AM EDT 09/11/2022 12:03 AM EDT Molina Flores MD POINT OF CARE TEST ORDERABLES [facility] [place] [address] * POCT Glucose (09/10/2022 7:45 PM EDT) Glucose, POC 142 65 - 199 mg/dL [facility] Comment: Supplemental ranges: <140 mg/dL before meals <180 mg/dL all other times of the day Blood 09/10/2022 7:45 PM EDT 09/10/2022 7:45 PM EDT Molina Flores MD POINT OF CARE TEST ORDERABLES [facility] [place] [address] * POCT Glucose (09/10/2022 4:21 PM EDT) Glucose, POC 141 65 - 199 mg/dL [facility] Comment: Supplemental ranges: <140 mg/dL before meals <180 mg/dL all other times of the day Blood 09/10/2022 4:21 PM EDT 09/10/2022 4:21 PM EDT Molina Flores MD POINT OF CARE TEST ORDERABLES [facility] [place] [address] * POCT Glucose (09/10/2022 3:23 PM EDT) Glucose, POC 188 65 - 199 mg/dL [facility] Comment: Supplemental ranges: <140 mg/dL before meals <180 mg/dL all other times of the day Blood 09/10/2022 3:23 PM EDT 09/10/2022 3:23 PM EDT Molina Flores MD POINT OF CARE TEST ORDERABLES [facility] [place] [address] * POCT Glucose (09/10/2022 2:07 PM EDT) Glucose, POC 166 65 - 199 mg/dL [facility] Comment: Supplemental ranges: <140 mg/dL before meals <180 mg/dL all other times of the day Blood 09/10/2022 2:07 PM EDT 09/10/2022 2:07 PM EDT Molina Flores MD POINT OF CARE TEST ORDERABLES [facility] [place] [address] * POCT Glucose (09/10/2022 11:59 AM EDT) Glucose, POC 165 65 - 199 mg/dL [facility] Comment: Supplemental ranges: <140 mg/dL before meals <180 mg/dL all other times of the day Blood 09/10/2022 11:5 9 AM EDT 09/10/2022 11:59 AM EDT Molina Flores MD POINT OF CARE TEST ORDERABLES Performing Organization Address City/[facility]/[place] [address] * (ABNORMAL) Differential, Automated (09/10/2022 9:20 AM EDT) Neutrophil % 59.6 % [facility] Neutrophil Absolute 3.39 1.70 - 6.10 x10(3)/mc L [facility] Lymph % 21.4 % [facility] Lymphocytes Abs 1.2 0.9 - 3.2 x10(3)/mc L [facility] Monocyte % 11.4 % [facility] Monocyte Abs 0.6 0.3 - 0.9 x10(3)/mc L [facility] Eos % 6.2 % [facility] Eosinophils Abs 0.4 0.0 - 0.4 x10(3)/mc L [facility] Basophil % 0.5 % [facility] Baso Absolute 0.0 0.0 - 0.1 x10(3)/mc L [facility] Immature Gran % 0.90 % [facility] Comment: Immature granulocytes(IG's)percentage and absolute count will include metamyelocytes, myelocytes, and promyelocytes. Blood smears from CBCs yielding IG's will be scanned manually for concordance. If this scan disagrees with the automated IG or if promyelocytes are noted, a manual differential will be performed. Immature Gran Absolute 0.05(H) 0.00 - 0.04 x10(3)/mc L [facility] Blood 09/10/2022 9:20 AM EDT 09/10/2022 10:10 AM EDT Narrative Resulting Agency Comment Spec In Lab Chau Keith MD HEMATOLOGY ORDERABLE S Performing Organization Address City/[facility]/[place] [address] * (ABNORMAL) Hemogram (09/10/2022 9:20 AM EDT) White Blood Cell 5.7 4.0 - 9.5 x10(3)/[facility] Red Blood Cell 4.06 4.00 - 5.21 x10(6)/[facility] Comment:Dimorphic RBC popula tion. Hemoglobin 9.2(L) 11.7 - 15.5 g/dL [facility] Hematocrit 31.4(L) 35.7 - 45.8 % [facility] Mean Cell Volume 77.3(L) 82.6 - 94.4 fL [facility] Mean Cell Hemoglobin 22.7(L) 27.1 - 32.0 pg [facility] Mean Cell Hemoglobin Concentration 29.3(L) 31.7 - 35.0 g/dL [facility] Platelet 229 145 - 357 x10(3)/ L [facility] RDW Standard Deviation Not Measured 37.0 - 46.0 fL [facility] RDW coefficient of variation Not Measured 11.5 - 14.1 % [facility] Mean Platelet Volume 10.5 7.6 - 12.9 fL [facility] NRBC% auto 0.0 % [facility] NRBC Absolute 0.000 0.000 - 0.000 x10(3)/[facility] Blood 09/10/2022 9:20 AM EDT 09/10/2022 10:10 AM EDT Narrative Resulting Agency Comment Spec In Lab Chau Keith MD HEMATOLOGY ORDERABLE S [facility] [place] [address] * POCT Glucose (09/10/2022 8:07 AM EDT) Glucose, POC 135 65 - 199 mg/dL [facility] Comment: Supplemental ranges: <140 mg/dL before meals <180 mg/dL all other times of the day Blood 09/10/2022 8:07 AM EDT 09/10/2022 8:07 AM EDT Molina Flores MD POINT OF CARE TEST ORDERABLES Performing Organization Address City/[facility] Co de Phone Number [facility] [place] [address] * POCT Glucose (09/10/2022 6:57 AM EDT) Glucose, POC 165 65 - 199 mg/dL [facility] Comment: Supplemental ranges: <140 mg/dL before meals <180 mg/dL all other times of the day Blood 09/10/2022 6:57 AM EDT 09/10/2022 6:57 AM EDT Molina Flores MD POINT OF CARE TEST ORDERABLES Performing Organization Address [facility] Co de Phone Number [facility] [place] [address] * Phosphorus (09/10/2022 6:00 AM EDT) Phosphorus 3.3 2.5 - 4.5 mg/dL [facility] Blood 09/10/2022 6:00 AM EDT 09/10/2022 6:13 AM EDT Narrative Resulting Agency Comment Spec In Lab Richard Pascal MD CHEMISTRY ORDERABLES Performing Organization Address [facility] Co de Phone Number [facility] [place] [address] * (ABNORMAL) Magnesium (09/10/2022 6:00 AM EDT) Magnesium 0.67(L) 0.69 - 1.07 mmol/L [facility] Blood 09/10/2022 6:00 AM EDT 09/10/2022 6:13 AM EDT Narrative Resulting Agency Comment Spec In Lab Richard Pascal MD CHEMISTRY ORDERABLES Performing Organization Address [facility] Co de Phone Number [facility] [place] [address] * (ABNORMAL) Basic Metabolic Panel (non-fasting) (09/10/2022 6:00 AM EDT) Glucose 158 65 - 199 mg/dL [facility] Comment:Diabetes: >=200 mg/d L plus symptoms Blood Urea Nitrogen 11 8 - 18 mg/dL [facility] Creatinine 0.48(L) 0.70 - 1.20 mg/dL [facility] Sodium 140 135 - 145 mmol/L [facility] Potassium 3.7 3.5 - 5.0 mmol/L [facility] Comment: Please note: ??Patients with WBC >100,000 may have falsely elevated Potassium levels. ??For accurate Potassium quantification in these patients send serum separator tube (gold top) for subsequent determinations. ??Contact the Clinical Chemistry Laboratory if there are any questions. Chloride 105 98 - 107 mmol/L [facility] Carbon Dioxide 27 22 - 31 mmol/L [facility] Anion Gap 8 5 - 15 mmol/L [facility] Calcium 9.1 8.5 - 10.5 mg/dL [facility] Est Glomerular Filtration Rate 107 >=60 mL/min/1. 73 m?? [facility] Comment: This patient's estimated GFR was [...] In Lab Richard Pascal MD CHEMISTRY ORDERABLES [facility] [place] [address] * POCT Glucose (09/10/2022 3:40 AM EDT) Glucose, POC 160 65 - 199 mg/dL [facility] Comment: Supplemental ranges: <140 mg/dL before meals <180 mg/dL all other times of the day Blood 09/10/2022 3:40 AM EDT 09/10/2022 3:40 AM EDT Molina Flores MD POINT OF CARE TEST ORDERABLES Performing Organization Address [facility] Co de Phone Number [facility] [address] * POCT Glucose (09/10/2022 1:44 AM EDT) Glucose, POC 145 65 - 199 mg/dL [facility] Comment: Supplemental ranges: <140 mg/dL before meals <180 mg/dL all other times of the day Blood 09/10/2022 1:44 AM EDT 09/10/2022 1:44 AM EDT Molina Flores MD POINT OF CARE TEST ORDERABLES Performing Organization Address [facility] de Phone Number [facility] [place] [address] * XR Abdomen 1 view (Generic) (09/10/2022 [...] who have questions please contact the health animal care taker that requested your imaging first. ? Electronically signed by: Camille Garcia MD, [facility] ([phone]), at 09/10/2022 1:16 AM Narrative 09/10/2022 1:16 [...] patients who have questions please contactthe health animal care taker that requested your imaging first. Electronically signed by: Camille Garcia MD, [facility]([phone]), at 09/10/2022 1:16 AM Molina Flores MD IMG DX ORDERABLES * POCT Glucose (09/09/2022 8:09 PM EDT) [facility] Glucose, POC 153 65 - 199 mg/dL [facility] Comment: Supplemental ranges: <140 mg/dL before meals <180 mg/dL all other times of the day Blood 09/09/2022 8:09 PM EDT 09/09/2022 8:09 PM EDT Molina Flores MD POINT OF CARE TEST ORDERABLES [facility] [place] [address] * POCT Glucose (09/09/2022 5:20 PM EDT) Glucose, POC 146 65 - 199 mg/dL [facility] Comment: Supplemental ranges: <140 mg/dL before meals <180 mg/dL all other times of the day Blood 09/09/2022 5:20 PM EDT 09/09/2022 5:20 PM EDT Molina Flores MD POINT OF CARE TEST ORDERABLES [facility] [place] [address] * POCT Glucose (09/09/2022 1:18 PM EDT) Glucose, POC 138 65 - 199 mg/dL [facility] Comment: Supplemental ranges: <140 mg/dL before meals <180 mg/dL all other times of the day Blood 09/09/2022 1:18 PM EDT 09/09/2022 1:18 PM EDT Molina Flores MD POINT OF CARE TEST ORDERABLES [facility] [place] [address] * POCT Glucose (09/09/2022 10:10 AM EDT) Glucose, POC 167 65 - 199 mg/dL [facility] Comment: Supplemental ranges: <140 mg/dL before meals <180 mg/dL all other times of the day Blood 09/09/2022 10:1 0 AM EDT 09/09/2022 10:10 AM EDT Molina Flores MD POINT OF CARE TEST ORDERABLES [facility] [place] [address] * POCT Glucose (09/09/2022 6:41 AM EDT) Glucose, POC 150 65 - 199 mg/dL [facility] Comment: Supplemental ranges: <140 mg/dL before meals <180 mg/dL all other times of the day Blood 09/09/2022 6:41 AM EDT 09/09/2022 6:41 AM EDT Molina Flores MD POINT OF CARE TEST ORDERABLES Performing Organization Address City/[facility] Co de Phone Number [facility] [place] [address] * (ABNORMAL) Differential, Automated (09/09/2022 4:00 AM EDT) Neutrophil % 49.9 % [facility] Neutrophil Absolute 3.43 1.70 - 6.10 x10(3)/mc L [facility] Lymph % 27.9 % [facility] Lymphocytes Abs 1.9 0.9 - 3.2 x10(3)/mc L [facility] Monocyte % 10.2 % [facility] Monocyte Abs 0.7 0.3 - 0.9 x10(3)/mc L [facility] Eos % 10.0 % [facility] Eosinophils Abs 0.7(H) 0.0 - 0.4 x10(3)/mc L [facility] Basophil % 1.0 % [facility] Baso Absolute 0.1 0.0 - 0.1 x10(3)/mc L [facility] Immature Gran % 1.00 % [facility] Comment: Immature granulocytes(IG's)percentage and absolute count will include metamyelocytes, myelocytes, and promyelocytes. Blood smears from CBCs yielding IG's will be scanned manually for concordance. If this scan disagrees with the automated IG or if promyelocytes are noted, a manual differential will be performed. Immature Gran Absolute 0.07(H) 0.00 - 0.04 x10(3)/ L [facility] Blood 09/09/2022 4:00 AM EDT 09/09/2022 4:18 AM EDT Narrative Resulting Agency Comment Spec In Lab Jigar Streeter MD HEMATOLOGY ORDERABLE S [facility] [place] [address] * (ABNORMAL) Hemogram (09/09/2022 4:00 AM EDT) White Blood Cell 6.9 4.0 - 9.5 x10(3)/[facility] Red Blood Cell 4.37 4.00 - 5.21 x10(6)/[facility] Comment:Dimorphic RBC popula tion. Hemoglobin 9.8(L) 11.7 - 15.5 g/dL [facility] Hematocrit 33.4(L) 35.7 - 45.8 % [facility] Mean Cell Volume 76.4(L) 82.6 - 94.4 fL [facility] Mean Cell Hemoglobin 22.4(L) 27.1 - 32.0 pg [facility] Mean Cell Hemoglobin Concentration 29.3(L) 31.7 - 35.0 g/dL [facility] Platelet 264 145 - 357 x10(3)/[facility] RDW Standard Deviation 79.7(H) 37.0 - 46.0 fL [facility] RDW coefficient of variation 30.7(H) 11.5 - 14.1 % [facility] Mean Platelet Volume 10.0 7.6 - 12.9 fL [facility] NRBC% auto 0.0 % [facility] NRBC Absolute 0.000 0.000 - 0.000 x10(3)/[facility] Blood 09/09/2022 4:00 AM EDT 09/09/2022 4:18 AM EDT Narrative Resulting Agency Comment Spec In Lab Jigar Streeter MD HEMATOLOGY ORDERABLE S Performing Organization Address City/[facility]/ZIP Co de Phone Number [facility] [place] [address] * (ABNORMAL) Basic Metabolic Panel (non-fasting) (09/09/2022 4:00 AM EDT) Glucose 139 65 - 199 mg/dL [facility] Comment:Diabetes: >=200 mg/d L plus symptoms Blood Urea Nitrogen 24(H) 8 - 18 mg/dL [facility] Creatinine 0.56(L) 0.70 - 1.20 mg/dL [facility] Sodium 140 135 - 145 mmol/L [facility] Potassium 4.3 3.5 - 5.0 mmol/L [facility] Comment: Please note: ??Patients with WBC >100,000 may have falsely elevated Potassium levels. ??For accurate Potassium quantification in these patients send serum separator tube (gold top) for subsequent determinations. ??Contact the Clinical Chemistry Laboratory if there are any questions. Chloride 102 98 - 107 mmol/L [facility] Carbon Dioxide 28 22 - 31 mmol/L [facility] Anion Gap 10 5 - 15 mmol/L [facility] Calcium 10.1 8.5 - 10.5 mg/dL [facility] Est Glomerular Filtration Rate 103 >=60 mL/min/1. 73 m?? [facility] Comment: This patient's estimated GFR was [...] In Lab Richard Pascal MD CHEMISTRY ORDERABLES [facility] [place] [address] * Phosphorus (09/09/2022 4:00 AM EDT) Phosphorus 4.2 2.5 - 4.5 mg/dL [facility] Blood 09/09/2022 4:00 AM EDT 09/09/2022 4:18 AM EDT Narrative Resulting Agency Comment Spec In Lab Richard Pascal MD CHEMISTRY ORDERABLES Performing Organization Address City/[facility] Co de Phone Number [facility] [place] [address] * Magnesium (09/09/2022 4:00 AM EDT) Magnesium 0.86 0.69 - 1.07 mmol/L [facility] Blood 09/09/2022 4:00 AM EDT 09/09/2022 4:18 AM EDT Narrative Resulting Agency Comment Spec In Lab Richard Pascal MD CHEMISTRY ORDERABLES Performing Organization Address [facility] Co de Phone Number [facility] [place] [address] * POCT Glucose (09/09/2022 3:49 AM EDT) Glucose, POC 140 65 - 199 mg/dL [facility] Comment: Supplemental ranges: <140 mg/dL before meals <180 mg/dL all other times of the day Blood 09/09/2022 3:49 AM EDT 09/09/2022 3:49 AM EDT Molina Flores MD POINT OF CARE TEST ORDERABLES Performing Organization Address [facility] Co de Phone Number [facility] [place] [address] * POCT Glucose (09/08/2022 11:53 PM EDT) Glucose, POC 116 65 - 199 mg/dL [facility] Comment: Supplemental ranges: <140 mg/dL before meals <180 mg/dL all other times of the day Blood 09/08/2022 11:5 3 PM EDT 09/08/2022 11:53 PM EDT Molina Flores MD POINT OF CARE TEST ORDERABLES [facility] [place] [address] * POCT Glucose (09/08/2022 7:54 PM EDT) Glucose, POC 182 65 - 199 mg/dL [facility] Comment: Supplemental ranges: <140 mg/dL before meals <180 mg/dL all other times of the day Blood 09/08/2022 7:54 PM EDT 09/08/2022 7:54 PM EDT Molina Flores MD POINT OF CARE TEST ORDERABLES [facility] [place] [address] * POCT Glucose (09/08/2022 4:57 PM EDT) Glucose, POC 119 65 - 199 mg/dL [facility] Comment: Supplemental ranges: <140 mg/dL before meals <180 mg/dL all other times of the day Blood 09/08/2022 4:57 PM EDT 09/08/2022 4:57 PM EDT Molina Flores MD POINT OF CARE TEST ORDERABLES [facility] [place] [address] * POCT Glucose (09/08/2022 6:53 AM EDT) Glucose, POC 134 65 - 199 mg/dL [facility] Comment: Supplemental ranges: <140 mg/dL before meals <180 mg/dL all other times of the day Blood 09/08/2022 6:53 AM EDT 09/08/2022 6:53 AM EDT Richard Pascal MD POINT OF CARE TEST O RDERABLES [facility] [place] [address] * POCT Glucose (09/08/2022 3:57 AM EDT) Glucose, POC 165 65 - 199 mg/dL [facility] Comment: Supplemental ranges: <140 mg/dL before meals <180 mg/dL all other times of the day Blood 09/08/2022 3:57 AM EDT 09/08/2022 3:57 AM EDT Richard Pascal MD POINT OF CARE TEST O RDERABLES Performing Organization Address [facility] Co de Phone Number [facility] [place] [address] * (ABNORMAL) Differential, Automated (09/08/2022 2:00 AM EDT) Neutrophil % 49.5 % [facility] Neutrophil Absolute 3.42 1.70 - 6.10 x10(3)/mc L [facility] Lymph % 28.0 % [facility] Lymphocytes Abs 1.9 0.9 - 3.2 x10(3)/mc L [facility] Monocyte % 12.2 % [facility] Monocyte Abs 0.8 0.3 - 0.9 x10(3)/mc L [facility] Eos % 8.7 % [facility] Eosinophils Abs 0.6(H) 0.0 - 0.4 x10(3)/mc L [facility] Basophil % 0.9 % [facility] Baso Absolute 0.1 0.0 - 0.1 x10(3)/mc L [facility] Immature Gran % 0.70 % [facility] Comment: Immature granulocytes(IG's)percentage and absolute count will include metamyelocytes, myelocytes, and promyelocytes. Blood smears from CBCs yielding IG's will be scanned manually for concordance. If this scan disagrees with the automated IG or if promyelocytes are noted, a manual differential will be performed. Immature Gran Absolute 0.05(H) 0.00 - 0.04 x10(3)/[facility] Blood 09/08/2022 2:00 AM EDT 09/08/2022 2:13 AM EDT Narrative Resulting Agency Comment Spec In Lab Jigar Streeter MD HEMATOLOGY ORDERABLE S [facility] [place] [address] * (ABNORMAL) Hemogram (09/08/2022 2:00 AM EDT) White Blood Cell 6.9 4.0 - 9.5 x10(3)/[facility] Red Blood Cell 4.34 4.00 - 5.21 x10(6)/[facility] Comment:Dimorphic RBC popula tion. Hemoglobin 9.8(L) 11.7 - 15.5 g/dL [facility] Hematocrit 32.6(L) 35.7 - 45.8 % [facility] Mean Cell Volume 75.1(L) 82.6 - 94.4 fL [facility] Mean Cell Hemoglobin 22.6(L) 27.1 - 32.0 pg [facility] Mean Cell Hemoglobin Concentration 30.1(L) 31.7 - 35.0 g/dL [facility] Platelet 300 145 - 357 x10(3)/[facility] RDW Standard Deviation Not Measured 37.0 - 46.0 fL [facility] RDW coefficient of variation Not Measured 11.5 - 14.1 % [facility] Mean Platelet Volume 9.5 7.6 - 12.9 fL [facility] NRBC% auto 0.0 % [facility] NRBC Absolute 0.000 0.000 - 0.000 x10(3)/[facility] Blood 09/08/2022 2:00 AM EDT 09/08/2022 2:13 AM EDT Narrative Resulting Agency Comment Spec In Lab Jigar Streeter MD HEMATOLOGY ORDERABLE S Performing Organization Address [facility] Co de Phone Number [facility] [place] [address] * (ABNORMAL) Basic Metabolic Panel (non-fasting) (09/08/2022 2:00 AM EDT) Glucose 142 65 - 199 mg/dL [facility] Comment:Diabetes: >=200 mg/d L plus symptoms Blood Urea Nitrogen 25(H) 8 - 18 mg/dL [facility] Creatinine 0.52(L) 0.70 - 1.20 mg/dL [facility] Sodium 142 135 - 145 mmol/L [facility] Potassium 4.6 3.5 - 5.0 mmol/L [facility] Comment: Please note: ??Patients with WBC >100,000 may have falsely elevated Potassium levels. ??For accurate Potassium quantification in these patients send serum separator tube (gold top) for subsequent determinations. ??Contact the Clinical Chemistry Laboratory if there are any questions. Chloride 103 98 - 107 mmol/L [facility] Carbon Dioxide 30 22 - 31 mmol/L [facility] Anion Gap 9 5 - 15 mmol/L [facility] Calcium 10.0 8.5 - 10.5 mg/dL [facility] Est Glomerular Filtration Rate 105 >=60 mL/min/1. 73 m?? [facility] Comment: This patient's estimated GFR was [...] Pascal MD CHEMISTRY ORDERABLES Performing Organization Address [facility]/ZIP Co de Phone Number [facility] [place] [address] * Phosphorus (09/08/2022 2:00 AM EDT) Phosphorus 3.2 2.5 - 4.5 mg/dL [facility] Blood 09/08/2022 2:00 AM EDT 09/08/2022 2:13 AM EDT Narrative Resulting Agency Comment Spec In Lab Richard Pascal MD CHEMISTRY ORDERABLES Performing Organization Address City/[facility] Co de Phone Number [facility] [place] [address] * Magnesium (09/08/2022 2:00 AM EDT) Magnesium 0.90 0.69 - 1.07 mmol/L [facility] Blood 09/08/2022 2:00 AM EDT 09/08/2022 2:13 AM EDT Narrative Resulting Agency Comment Spec In Lab Richard Pascal MD CHEMISTRY ORDERABLES Performing Organization Address [facility] Co de Phone Number [facility] [place] [address] * POCT Glucose (09/07/2022 11:06 PM EDT) Glucose, POC 189 65 - 199 mg/dL [facility] Comment: Supplemental ranges: <140 mg/dL before meals <180 mg/dL all other times of the day Blood 09/07/2022 11:0 6 PM EDT 09/07/2022 11:06 PM EDT Richard Pascal MD POINT OF CARE TEST O RDERABLES Performing Organization Address City/[facility] Co de Phone Number [facility] [place] [address] * POCT Glucose (09/07/2022 8:21 PM EDT) Glucose, POC 143 65 - 199 mg/dL [facility] Comment: Supplemental ranges: <140 mg/dL before meals <180 mg/dL all other times of the day Blood 09/07/2022 8:21 PM EDT 09/07/2022 8:21 PM EDT Molina Flores MD POINT OF CARE TEST ORDERABLES [facility] [place] [address] * POCT Glucose (09/07/2022 3:54 PM EDT) Glucose, POC 182 65 - 199 mg/dL [facility] Comment: Supplemental ranges: <140 mg/dL before meals <180 mg/dL all other times of the day Blood 09/07/2022 3:54 PM EDT 09/07/2022 3:54 PM EDT Molina Flores MD POINT OF CARE TEST ORDERABLES Performing Organization Address [facility]/ZIP Co de Phone Number [facility] [place] [address] * POCT Glucose (09/07/2022 11:26 AM EDT) Glucose, POC 153 65 - 199 mg/dL [facility] Comment: Supplemental ranges: <140 mg/dL before meals <180 mg/dL all other times of the day Blood 09/07/2022 11:2 6 AM EDT 09/07/2022 11:26 AM EDT Molina Flores MD POINT OF CARE TEST ORDERABLES [facility] [place] [address] * POCT Glucose (09/07/2022 7:46 AM EDT) Glucose, POC 150 65 - 199 mg/dL [facility] Comment: Supplemental ranges: <140 mg/dL before meals <180 mg/dL all other times of the day Blood 09/07/2022 7:46 AM EDT 09/07/2022 7:46 AM EDT Richard Pascal MD POINT OF CARE TEST O RDERABLES Performing Organization Address [facility] Co de Phone Number [facility] [place] [address] * EKG 12 Lead (09/07/2022 6:35 AM EDT) Ventricular rate 72 BPM MUSE SYSTEM Atrial Rate 72 BPM MUSE SYSTEM P-R Interval 148 ms MUSE SYSTEM QRS Duration 72 ms MUSE SYSTEM Q-T Interval 416 ms MUSE SYSTEM QTC Calculated (Bezet) 455 ms MUSE SYSTEM Calculated P [place] 53 degrees MUSE SYSTEM Calculated R [place] 86 degrees MUSE SYSTEM Calculated T [place] 149 degrees MUSE SYSTEM INTERPRETATION Normal sinus rhythm with sinus arrhythmia Low voltage QRS T wave abnormality, consider anterolateral ischemia Abnormal ECG When compared with ECG of 01-SEP-2022 02:24, No significant change was found I personally reviewed the tracing and edited the fellows interpretation Confirmed by fellow Niurka Rose ([id number]) on 09/07/2022 8:45:34 AM Confirmed by MD ALEJANDRA, RICHARD ([id number]) on 09/07/2022 1:55:43 PM MUSE SYSTEM 09/07/2022 6:35 AM EDT 09/07/2022 1:55 PM EDT Richard Pascal MD ECG ORDERABLES Performing Organization Address [facility] Co de Phone Number MUSE SYSTEM * POCT Glucose (09/07/2022 4:08 AM EDT) Glucose, POC 135 65 - 199 mg/dL [facility] Comment: Supplemental ranges: <140 mg/dL before meals <180 mg/dL all other times of the day Blood 09/07/2022 4:08 AM EDT 09/07/2022 4:08 AM EDT Richard Pascal MD POINT OF CARE TEST O RDERABLES Performing Organization Address [facility] Co de Phone Number [facility] [place] [address] * (ABNORMAL) Differential, Automated (09/07/2022 12:30 AM EDT) Neutrophil % 43.6 % [facility] Neutrophil Absolute 2.71 1.70 - 6.10 x10(3)/[facility] Lymph % 33.3 % [facility] Lymphocytes Abs 2.1 0.9 - 3.2 x10(3)/[facility] Monocyte % 11.6 % [facility] Monocyte Abs 0.7 0.3 - 0.9 x10(3)/[facility] Eos % 9.5 % [facility] Eosinophils Abs 0.6(H) 0.0 - 0.4 x10(3)/[facility] Basophil % 1.4 % [facility] Baso Absolute 0.1 0.0 - 0.1 x10(3)/[facility] Immature Gran % 0.60 % [facility] Comment: Immature granulocytes(IG's)percentage and absolute count will include metamyelocytes, myelocytes, and promyelocytes. Blood smears from CBCs yielding IG's will be scanned manually for concordance. If this scan disagrees with the automated IG or if promyelocytes are noted, a manual differential will be performed. Immature Gran Absolute 0.04 0.00 - 0.04 x10(3)/[facility] Blood 09/07/2022 12:3 0 AM EDT 09/07/2022 12:54 AM EDT Narrative Resulting Agency Comment Spec In Lab Jigar Streeter MD HEMATOLOGY ORDERABLE S [facility] [place] [address] * (ABNORMAL) Hemogram (09/07/2022 12:30 AM EDT) White Blood Cell 6.2 4.0 - 9.5 x10(3)/[facility] Red Blood Cell 4.11 4.00 - 5.21 x10(6)/[facility] Hemoglobin 9.1(L) 11.7 - 15.5 g/dL [facility] Hematocrit 30.5(L) 35.7 - 45.8 % [facility] Mean Cell Volume 74.2(L) 82.6 - 94.4 fL [facility] Mean Cell Hemoglobin 22.1(L) 27.1 - 32.0 pg [facility] Mean Cell Hemoglobin Concentration 29.8(L) 31.7 - 35.0 g/dL [facility] Platelet 286 145 - 357 x10(3)/mc L [facility] RDW Standard Deviation Not Measured 37.0 - 46.0 fL [facility] RDW coefficient of variation Not Measured 11.5 - 14.1 % [facility] Mean Platelet Volume 9.6 7.6 - 12.9 fL [facility] NRBC% auto 0.0 % [facility] NRBC Absolute 0.000 0.000 - 0.000 x10(3)/mc L [facility] Blood 09/07/2022 12:3 0 AM EDT 09/07/2022 12:54 AM EDT Narrative Resulting Agency Comment Spec In Lab Jigar Streeter MD HEMATOLOGY ORDERABLE S [facility] [place] [address] * (ABNORMAL) Basic Metabolic Panel (non-fasting) (09/07/2022 12:30 AM EDT) Glucose 144 65 - 199 mg/dL [facility] Comment:Diabetes: >=200 mg/d L plus symptoms Blood Urea Nitrogen 22(H) 8 - 18 mg/dL [facility] Creatinine 0.53(L) 0.70 - 1.20 mg/dL [facility] Sodium 138 135 - 145 mmol/L [facility] Potassium 4.6 3.5 - 5.0 mmol/L [facility] Comment: Please note: ??Patients with WBC >100,000 may have falsely elevated Potassium levels. ??For accurate Potassium quantification in these patients send serum separator tube (gold top) for subsequent determinations. ??Contact the Clinical Chemistry Laboratory if there are any questions. Chloride 103 98 - 107 mmol/L [facility] Carbon Dioxide 29 22 - 31 mmol/L [facility] Anion Gap 6 5 - 15 mmol/L [facility] Calcium 9.4 8.5 - 10.5 mg/dL [facility] Est Glomerular Filtration Rate 105 >=60 mL/min/1. 73 m?? [facility] Comment: This patient's estimated GFR was [...] Pascal MD CHEMISTRY ORDERABLES Performing Organization Address [facility] de Phone Number [facility] [place] [address] * Phosphorus (09/07/2022 12:30 AM EDT) Phosphorus 3.0 2.5 - 4.5 mg/dL [facility] Blood 09/07/2022 12:3 0 AM EDT 09/07/2022 12:54 AM EDT Narrative Resulting Agency Comment Spec In Lab Richard Pascal MD CHEMISTRY ORDERABLES Performing Organization Address [facility] Co de Phone Number [facility] [place] [address] * Magnesium (09/07/2022 12:30 AM EDT) Magnesium 0.86 0.69 - 1.07 mmol/L [facility] Blood 09/07/2022 12:3 0 AM EDT 09/07/2022 12:54 AM EDT Narrative Resulting Agency Comment Spec In Lab Richard Pascal MD CHEMISTRY ORDERABLES [facility] [place] [address] * POCT Glucose (09/07/2022 12:29 AM EDT) Glucose, POC 127 65 - 199 mg/dL [facility] Comment: Supplemental ranges: <140 mg/dL before meals <180 mg/dL all other times of the day Blood 09/07/2022 12:2 9 AM EDT 09/07/2022 12:29 AM EDT Richard Pascal MD POINT OF CARE TEST O RDERABLES Performing Organization Address [facility] Co de Phone Number [facility] [place] [address] * POCT Glucose (09/06/2022 9:54 PM EDT) Glucose, POC 184 65 - 199 mg/dL [facility] Comment: Supplemental ranges: <140 mg/dL before meals <180 mg/dL all other times of the day Blood 09/06/2022 9:54 PM EDT 09/06/2022 9:54 PM EDT Richard Pascal MD POINT OF CARE TEST O RDERABLES Performing Organization Address [facility] Co de Phone Number [facility] [place] [address] * POCT Glucose (09/06/2022 4:46 PM EDT) Glucose, POC 177 65 - 199 mg/dL [facility] Comment: Supplemental ranges: <140 mg/dL before meals <180 mg/dL all other times of the day Blood 09/06/2022 4:46 PM EDT 09/06/2022 4:46 PM EDT Richard Pascal MD POINT OF CARE TEST O RDERABLES Performing Organization Address [facility] Co de Phone Number [email or web address] [facility] [place] [address] * POCT Glucose (09/06/2022 12:57 PM EDT) Glucose, POC 176 65 - 199 mg/dL [facility] Comment: Supplemental ranges: <140 mg/dL before meals <180 mg/dL all other times of the day Blood 09/06/2022 12:5 7 PM EDT 09/06/2022 12:57 PM EDT Richard Pascal MD POINT OF CARE TEST O RDAV [facility] [place] [address] * POCT Glucose (09/06/2022 9:06 AM EDT) Glucose, POC 162 65 - 199 mg/dL [facility] Comment: Supplemental ranges: <140 mg/dL before meals <180 mg/dL all other times of the day Blood 09/06/2022 9:06 AM EDT 09/06/2022 9:06 AM EDT Richard Pascal MD POINT OF CARE TEST O GABRIELLA Performing Organization Address [facility] Co de Phone Number [facility] [place] [address] * POCT Glucose (09/06/2022 3:39 AM EDT) Glucose, POC 102 65 - 199 mg/dL [facility] Comment: Supplemental ranges: <140 mg/dL before meals <180 mg/dL all other times of the day Blood 09/06/2022 3:39 AM EDT 09/06/2022 3:39 AM EDT Richard Pascal MD POINT OF CARE TEST O RDERAREYMUNDO Performing Organization Address City/[facility] Co de Phone Number [facility] [place] [address] * (ABNORMAL) Differential, Automated (09/06/2022 1:00 AM EDT) Neutrophil % 41.9 % [facility] Neutrophil Absolute 2.64 1.70 - 6.10 x10(3)/mc L [facility] Lymph % 36.2 % [facility] Lymphocytes Abs 2.3 0.9 - 3.2 x10(3)/ L [facility] Monocyte % 12.5 % [facility] Monocyte Abs 0.8 0.3 - 0.9 x10(3)/[facility] Eos % 7.6 % [facility] Eosinophils Abs 0.5(H) 0.0 - 0.4 x10(3)/[facility] Basophil % 1.3 % [facility] Baso Absolute 0.1 0.0 - 0.1 x10(3)/[facility] Immature Gran % 0.50 % [facility] Comment: Immature granulocytes(IG's)percentage and absolute count will include metamyelocytes, myelocytes, and promyelocytes. Blood smears from CBCs yielding IG's will be scanned manually for concordance. If this scan disagrees with the automated IG or if promyelocytes are noted, a manual differential will be performed. Immature Gran Absolute 0.03 0.00 - 0.04 x10(3)/ L [facility] Blood 09/06/2022 1:00 AM EDT 09/06/2022 1:34 AM EDT Narrative Resulting Agency Comment Spec In Lab Tyler Cobb MD HEMATOLOGY ORDERABLE S [facility] [place] [address] * (ABNORMAL) Hemogram (09/06/2022 1:00 AM EDT) White Blood Cell 6.3 4.0 - 9.5 x10(3)/ L [facility] Red Blood Cell 3.92(L) 4.00 - 5.21 x10(6)/[facility] Comment:Dimorphic RBC popula tion. Hemoglobin 8.6(L) 11.7 - 15.5 g/dL [facility] Hematocrit 29.0(L) 35.7 - 45.8 % [facility] Mean Cell Volume 74.0(L) 82.6 - 94.4 fL [facility] Mean Cell Hemoglobin 21.9(L) 27.1 - 32.0 pg [facility] Mean Cell Hemoglobin Concentration 29.7(L) 31.7 - 35.0 g/dL [facility] Platelet 297 145 - 357 x10(3)/mc L [facility] RDW Standard Deviation Not Measured 37.0 - 46.0 fL [facility] RDW coefficient of variation Not Measured 11.5 - 14.1 % [facility] Mean Platelet Volume 9.8 7.6 - 12.9 fL [facility] NRBC% auto 0.0 % [facility] NRBC Absolute 0.000 0.000 - 0.000 x10(3)/mc L [facility] Blood 09/06/2022 1:00 AM EDT 09/06/2022 1:34 AM EDT Narrative Resulting Agency Comment Spec In Lab Tyler Cobb MD HEMATOLOGY ORDERABLE S Performing Organization Address City/State/[facility] Co de Phone Number [facility] [place] [address] * (ABNORMAL) Basic Metabolic Panel (non-fasting) (09/06/2022 1:00 AM EDT) Glucose 95 65 - 199 mg/dL [facility] Comment:Diabetes: >=200 mg/d L plus symptoms Blood Urea Nitrogen 21(H) 8 - 18 mg/dL [facility] Creatinine 0.49(L) 0.70 - 1.20 mg/dL [facility] Sodium 139 135 - 145 mmol/L [facility] Potassium 4.3 3.5 - 5.0 mmol/L [facility] Comment: Please note: ??Patients with WBC >100,000 may have falsely elevated Potassium levels. ??For accurate Potassium quantification in these patients send serum separator tube (gold top) for subsequent determinations. ??Contact the Clinical Chemistry Laboratory if there are any questions. Chloride 104 98 - 107 mmol/L [facility] Carbon Dioxide 28 22 - 31 mmol/L [facility] Anion Gap 7 5 - 15 mmol/L [facility] Calcium 9.5 8.5 - 10.5 mg/dL [facility] Est Glomerular Filtration Rate 106 >=60 mL/min/1. 73 m?? [facility] Comment: This patient's estimated GFR was [...] Pascal MD CHEMISTRY ORDERABLES Performing Organization Address [facility] Co de Phone Number [facility] [place] [address] * Phosphorus (09/06/2022 1:00 AM EDT) Phosphorus 3.6 2.5 - 4.5 mg/dL [facility] Blood 09/06/2022 1:00 AM EDT 09/06/2022 1:34 AM EDT Narrative Resulting Agency Comment Spec In Lab Richard Pascal MD CHEMISTRY ORDERABLES Performing Organization Address City/[facility] Co de Phone Number [facility] [place] [address] * Magnesium (09/06/2022 1:00 AM EDT) Magnesium 0.81 0.69 - 1.07 mmol/L [facility] Blood 09/06/2022 1:00 AM EDT 09/06/2022 1:34 AM EDT Narrative Resulting Agency Comment Spec In Lab Richard Pascal MD CHEMISTRY ORDERABLES Performing Organization Address City/[facility] Co de Phone Number [facility] [place] [address] * POCT Glucose (09/05/2022 11:29 PM EDT) Glucose, POC 94 65 - 199 mg/dL [facility] Comment: Supplemental ranges: <140 mg/dL before meals <180 mg/dL all other times of the day Blood 09/05/2022 11:2 9 PM EDT 09/05/2022 11:29 PM EDT Richard Pascal MD POINT OF CARE TEST O RDERABLES [facility] [place] [address] * POCT Glucose (09/05/2022 10:20 PM EDT) Glucose, POC 106 65 - 199 mg/dL [facility] Comment: Supplemental ranges: <140 mg/dL before meals <180 mg/dL all other times of the day Blood 09/05/2022 10:2 0 PM EDT 09/05/2022 10:20 PM EDT Richard Pascal MD POINT OF CARE TEST O RDERABLES Performing Organization Address City/[facility]/ZIP Co de Phone Number [facility] [place] [address] * (ABNORMAL) POCT Glucose (09/05/2022 7:17 PM EDT) Glucose, POC 225(H) 65 - 199 mg/dL [facility] Comment: Supplemental ranges: <140 mg/dL before meals <180 mg/dL all other times of the day Blood 09/05/2022 7:17 PM EDT 09/05/2022 7:17 PM EDT Richard Pascal MD POINT OF CARE TEST O RDERABLES [facility] [place] [address] * POCT Glucose (09/05/2022 3:54 PM EDT) Glucose, POC 142 65 - 199 mg/dL [facility] Comment: Supplemental ranges: <140 mg/dL before meals <180 mg/dL all other times of the day Blood 09/05/2022 3:54 PM EDT 09/05/2022 3:54 PM EDT Richard Pascal MD POINT OF CARE TEST O GABRIELLA Performing Organization Address City/[facility] Co de Phone Number [facility] [place] [address] * POCT Glucose (09/05/2022 12:44 PM EDT) Glucose, POC 142 65 - 199 mg/dL [facility] Comment: Supplemental ranges: <140 mg/dL before meals <180 mg/dL all other times of the day Blood 09/05/2022 12:4 4 PM EDT 09/05/2022 12:44 PM EDT Richard Pascal MD POINT OF CARE TEST O GABRIELLA Performing Organization Address [facility] Co de Phone Number [facility] [place] [address] * POCT Glucose (09/05/2022 9:51 AM EDT) Glucose, POC 173 65 - 199 mg/dL [facility] Comment: Supplemental ranges: <140 mg/dL before meals <180 mg/dL all other times of the day Blood 09/05/2022 9:51 AM EDT 09/05/2022 9:51 AM EDT Richard Pascal MD POINT OF CARE TEST O GABRIELLA Performing Organization Address [facility] Co de Phone Number [facility] [place] [address] * XR Chest One View (09/05/2022 9:24 AM EDT) Anatomical Region Laterality Modality Chest N/A Digital Radiogra phy Impressions 09/05/2022 3:43 PM EDT 1. Reposition enteric tube now extending below the diaphragm and included [id number]. 2. Similar appearance of elevated right hemidiaphragm and linear/patchy bibasilar opacities which may represent atelectasis or possibly aspiration. Thank you for letting us participate in the care of this patient. ??If you are a health care provider and have any questions regarding this report, please contact the number below. ??For patients who have questions please contact the health animal care taker that requested your imaging first. ? Electronically signed by: AUDI PERDOMO MD, [facility] ??([phone]), at 09/05/2022 3:43 PM Narrative 09/05/2022 3:43 [...] now extending below the diaphragm and included [id number]. Similar appearance of mild elevation of the [...] tube now extendingbelow the diaphragm and included vfioj-ah-vczb. Similar appearance of mild elevation of the right hemidiaphragm withstreaky right basilar opacities and some mild patchy opacities at the left lungbase. No new focal airspace opacity. No appreciable pleural fluid collection. No pneumothorax. Cardiomediastinal silhouette is unchanged. No evidence of pulmonary edema. No acute osseous abnormality. IMPRESSION 1. Reposition enteric tube now extending below the diaphragm andincluded pkypw-py-svad. 2. Similar appearance of elevated right hemidiaphragm and linear/patchy bibasilar opacities which may represent atelectasis or possiblyaspiration. Thank you for letting us participate in the care of this patient. If youare a health care provider and have any questions regarding this report,please contact the number below. For patients who have questions please contactthe health animal care taker that requested your imaging first. Electronically signed by: AUDI PERDOMO MD, [facility]([phone]), at 09/05/2022 3:43 PM Richard Pascal MD IMG DX ORDERABLES * POCT Glucose (09/05/2022 4:10 AM EDT) Glucose, POC 162 65 - 199 mg/dL [facility] Comment: Supplemental ranges: <140 mg/dL before meals <180 mg/dL all other times of the day Blood 09/05/2022 4:10 AM EDT 09/05/2022 4:10 AM EDT Tenisha Sadny MD POINT OF CARE MARIANELA T ORDERABLES [facility] [place] [address] * POCT Glucose (09/05/2022 1:18 AM EDT) Glucose, POC 98 65 - 199 mg/dL [facility] Comment: Supplemental ranges: <140 mg/dL before meals <180 mg/dL all other times of the day Blood 09/05/2022 1:18 AM EDT 09/05/2022 1:18 AM EDT Tenisha Sandy MD POINT OF CARE MARIANELA T ORDERABLES Performing Organization Address City/[facility]/ZIP Co de Phone Number [facility] [place] [address] * Differential, Automated (09/05/2022 1:06 AM EDT) Neutrophil % 38.7 % [facility] Neutrophil Absolute 1.88 1.70 - 6.10 x10(3)/[facility] Lymph % 35.9 % [facility] Lymphocytes Abs 1.8 0.9 - 3.2 x10(3)/[facility] Monocyte % 14.2 % [facility] Monocyte Abs 0.7 0.3 - 0.9 x10(3)/[facility] Eos % 9.2 % [facility] Eosinophils Abs 0.4 0.0 - 0.4 x10(3)/[facility] Basophil % 1.6 % [facility] Baso Absolute 0.1 0.0 - 0.1 x10(3)/[facility] Immature Gran % 0.40 % [facility] Comment: Immature granulocytes(IG's)percentage and absolute count will include metamyelocytes, myelocytes, and promyelocytes. Blood smears from CBCs yielding IG's will be scanned manually for concordance. If this scan disagrees with the automated IG or if promyelocytes are noted, a manual differential will be performed. Immature Gran Absolute 0.02 0.00 - 0.04 x10(3)/[facility] Blood 09/05/2022 1:06 AM EDT 09/05/2022 1:20 AM EDT Narrative Resulting Agency Comment Spec In Lab Tyler Cobb MD HEMATOLOGY ORDERABLE S Performing Organization Address [facility] [place] [address] * (ABNORMAL) Hemogram (09/05/2022 1:06 AM EDT) White Blood Cell 4.9 4.0 - 9.5 x10(3)/mc L [facility] Red Blood Cell 3.93(L) 4.00 - 5.21 x10(6)/mc L [facility] Comment:Dimorphic RBC popula tion. Hemoglobin 8.7(L) 11.7 - 15.5 g/dL [facility] Hematocrit 29.0(L) 35.7 - 45.8 % [facility] Mean Cell Volume 73.8(L) 82.6 - 94.4 fL [facility] Mean Cell Hemoglobin 22.1(L) 27.1 - 32.0 pg [facility] Mean Cell Hemoglobin Concentration 30.0(L) 31.7 - 35.0 g/dL [facility] Platelet 314 145 - 357 x10(3)/mc L [facility] RDW Standard Deviation Not Measured 37.0 - 46.0 fL [facility] RDW coefficient of variation Not Measured 11.5 - 14.1 % [facility] Mean Platelet Volume 9.8 7.6 - 12.9 fL [facility] NRBC% auto 0.0 % [facility] NRBC Absolute 0.000 0.000 - 0.000 x10(3)/ L [facility] Blood 09/05/2022 1:06 AM EDT 09/05/2022 1:20 AM EDT Narrative Resulting Agency Comment Spec In Lab Tyler Cobb MD HEMATOLOGY ORDERABLE S Performing Organization Address City/State/[facility] Co de Phone Number [facility] [place] [address] * (ABNORMAL) Basic Metabolic Panel (non-fasting) (09/05/2022 1:06 AM EDT) Pathologist [facility] Glucose 95 65 - 199 mg/dL [facility] Comment:Diabetes: >=200 mg/d L plus symptoms Blood Urea Nitrogen 21(H) 8 - 18 mg/dL [facility] Creatinine 0.49(L) 0.70 - 1.20 mg/dL [facility] Sodium 140 135 - 145 mmol/L [facility] Potassium 3.8 3.5 - 5.0 mmol/L [facility] Comment: Please note: ??Patients with WBC >100,000 may have falsely elevated Potassium levels. ??For accurate Potassium quantification in these patients send serum separator tube (gold top) for subsequent determinations. ??Contact the Clinical Chemistry Laboratory if there are any questions. Chloride 103 98 - 107 mmol/L [facility] Carbon Dioxide 28 22 - 31 mmol/L [facility] Anion Gap 9 5 - 15 mmol/L [facility] Calcium 9.5 8.5 - 10.5 mg/dL [facility] Est Glomerular Filtration Rate 106 >=60 mL/min/1. 73 m?? [facility] Comment: This patient's estimated GFR was [...] In Lab Richard Pascal MD CHEMISTRY ORDERABLES [facility] [place] [address] * Phosphorus (09/05/2022 1:06 AM EDT) Phosphorus 3.9 2.5 - 4.5 mg/dL [facility] Blood 09/05/2022 1:06 AM EDT 09/05/2022 1:20 AM EDT Narrative Resulting Agency Comment Spec In Lab Richard Pascal MD CHEMISTRY ORDERABLES [facility] [place] [address] * Magnesium (09/05/2022 1:06 AM EDT) Magnesium 0.91 0.69 - 1.07 mmol/L [facility] Blood 09/05/2022 1:06 AM EDT 09/05/2022 1:20 AM EDT Narrative Resulting Agency Comment Spec In Lab Richard Pascal MD CHEMISTRY ORDERABLES Performing Organization Address [facility] Co de Phone Number [facility] [place] [address] * POCT Glucose (09/04/2022 10:16 PM EDT) Glucose, POC 138 65 - 199 mg/dL [facility] Comment: Supplemental ranges: <140 mg/dL before meals <180 mg/dL all other times of the day Blood 09/04/2022 10:1 6 PM EDT 09/04/2022 10:16 PM EDT Tenisha Sandy MD POINT OF CARE MARIANELA T ORDERABLES Performing Organization Address [facility] de Phone Number [facility] [place] [address] * XR Abdomen 1 view (Generic) (09/04/2022 [...] who have questions please contact the health animal care taker that requested your imaging first. ? Electronically signed by: Jagdeep Lee MD, [facility] ([phone]), at 09/04/2022 10:35 PM Narrative 09/04/2022 10:35 [...] patients who have questions please contactthe health animal care taker that requested your imaging first. Electronically signed by: Jagdeep Lee MD, [facility]([phone]), at 09/04/2022 10:35 PM Tenisha Sandy MD IMG DX ORDERABLES * [...] who have questions please contact the health animal care taker that requested your imaging first. ? Electronically signed by: Jagdeep Lee MD, [facility] ([phone]), at 09/04/2022 10:35 PM Narrative 09/04/2022 10:35 [...] patients who have questions please contactthe health animal care taker that requested your imaging first. Tenisha Sandy MD IMG DX ORDERABLES * POCT Glucose (09/04/2022 8:49 PM EDT) [facility] Glucose, POC 73 65 - 199 mg/dL [facility] Comment: Supplemental ranges: <140 mg/dL before meals <180 mg/dL all other times of the day Blood 09/04/2022 8:49 PM EDT 09/04/2022 8:49 PM EDT Tenisha Sandy MD POINT OF CARE MARIANELA T ORDERABLES Performing Organization Address City/[facility] Co de Phone Number [facility] [place] [address] * POCT Glucose (09/04/2022 5:20 PM EDT) Glucose, POC 136 65 - 199 mg/dL [facility] Comment: Supplemental ranges: <140 mg/dL before meals <180 mg/dL all other times of the day Blood 09/04/2022 5:20 PM EDT 09/04/2022 5:20 PM EDT Tenisha Sandy MD POINT OF CARE MARIANELA T ORDERABLES Performing Organization Address City/[facility] Co de Phone Number [facility] [place] [address] * (ABNORMAL) POCT Glucose (09/04/2022 4:39 PM EDT) Glucose, POC 64(L) 65 - 199 mg/dL [facility] Comment: Supplemental ranges: <140 mg/dL before meals <180 mg/dL all other times of the day Blood 09/04/2022 4:39 PM EDT 09/04/2022 4:39 PM EDT Tenisha Sandy MD POINT OF CARE MARIANELA T ORDERABLES Performing Organization Address City/[facility] Co de Phone Number [facility] [place] [address] * POCT Glucose (09/04/2022 3:21 PM EDT) Glucose, POC 68 65 - 199 mg/dL [facility] Comment: Supplemental ranges: <140 mg/dL before meals <180 mg/dL all other times of the day Blood 09/04/2022 3:21 PM EDT 09/04/2022 3:21 PM EDT Tenisha Sandy MD POINT OF CARE MARIANELA T ORDERABLES [facility] [place] [address] * POCT Glucose (09/04/2022 11:07 AM EDT) Glucose, POC 107 65 - 199 mg/dL [facility] Comment: Supplemental ranges: <140 mg/dL before meals <180 mg/dL all other times of the day Blood 09/04/2022 11:0 7 AM EDT 09/04/2022 11:07 AM EDT Tenisha Sandy MD POINT OF CARE MARIANELA T ORDERABLES Performing Organization Address [facility] Co de Phone Number [facility] [place] [address] * XR Fluoro Barium Swallow (Modified/Video Swallow [...] who have questions please contact the health animal care taker that requested your imaging first. ? Electronically signed by: Alfonso Adams MD, [facility] ([phone]), at 09/04/2022 10:57 AM Narrative 09/04/2022 10:57 [...] patients who have questions please contactthe health animal care taker that requested your imaging first. Electronically signed by: Alfonso Adams MD, [facility]([phone]), at 09/04/2022 10:57 AM Tenisha Sandy MD IMG FLUORO ORDERA BLES * POCT Glucose (09/04/2022 7:18 AM EDT) Glucose, POC 106 65 - 199 mg/dL [facility] [facility] Comment: Supplemental ranges: <140 mg/dL before meals <180 mg/dL all other times of the day Blood 09/04/2022 7:18 AM EDT 09/04/2022 7:18 AM EDT Tenisha Sandy MD POINT OF CARE MARIANELA T ORDERABLES Performing Organization Address [facility] Co de Phone Number [facility] [place] [address] * POCT Glucose (09/04/2022 3:35 AM EDT) Glucose, POC 107 65 - 199 mg/dL [facility] Comment: Supplemental ranges: <140 mg/dL before meals <180 mg/dL all other times of the day Blood 09/04/2022 3:35 AM EDT 09/04/2022 3:35 AM EDT Tenisha Sandy MD POINT OF CARE MARIANELA T ORDERABLES Performing Organization Address City/State/[facility] [place] [address] * Differential, Automated (09/04/2022 12:26 AM EDT) Pathologist [facility] [place] Neutrophil % 60.2 % [facility] Neutrophil Absolute 4.05 1.70 - 6.10 x10(3)/[facility] Lymph % 27.4 % [facility] Lymphocytes Abs 1.8 0.9 - 3.2 x10(3)/[facility] Monocyte % 5.4 % [facility] Monocyte Abs 0.4 0.3 - 0.9 x10(3)/[facility] Eos % 5.4 % [facility] Eosinophils Abs 0.4 0.0 - 0.4 x10(3)/[facility] Basophil % 1.3 % [facility] Baso Absolute 0.1 0.0 - 0.1 x10(3)/[facility] Immature Gran % 0.30 % [facility] Comment: Immature granulocytes(IG's)percentage and absolute count will include metamyelocytes, myelocytes, and promyelocytes. Blood smears from CBCs yielding IG's will be scanned manually for concordance. If this scan disagrees with the automated IG or if promyelocytes are noted, a manual differential will be performed. Immature Gran Absolute 0.02 0.00 - 0.04 x10(3)/[facility] Blood 09/04/2022 12:2 6 AM EDT 09/04/2022 12:38 AM EDT Narrative Resulting Agency Comment Spec In Lab Tyler Cobb [place] [address] * (ABNORMAL) Hemogram (09/04/2022 12:26 AM EDT) [facility] White Blood Cell 6.7 4.0 - 9.5 x10(3)/mc L [facility] Red Blood Cell 3.83(L) 4.00 - 5.21 x10(6)/mc L [facility] Comment:Dimorphic RBC popula tion. Hemoglobin 8.5(L) 11.7 - 15.5 g/dL [facility] Hematocrit 28.1(L) 35.7 - 45.8 % [facility] Mean Cell Volume 73.4(L) 82.6 - 94.4 fL [facility] Mean Cell Hemoglobin 22.2(L) 27.1 - 32.0 pg [facility] Mean Cell Hemoglobin Concentration 30.2(L) 31.7 - 35.0 g/dL [facility] Platelet 300 145 - 357 x10(3)/mc L [facility] RDW Standard Deviation Not Measured 37.0 - 46.0 fL [facility] RDW coefficient of variation Not Measured 11.5 - 14.1 % [facility] Mean Platelet Volume 9.9 7.6 - 12.9 fL [facility] NRBC% auto 0.0 % [facility] NRBC Absolute 0.000 0.000 - 0.000 x10(3)/mc L [facility] Blood 09/04/2022 12:2 6 AM EDT 09/04/2022 12:38 AM EDT Narrative Resulting Agency Comment Spec In Lab Tyler Cobb MD HEMATOLOGY ORDERABLE S Performing Organization Address City/State/[facility] Co de Phone Number [facility] [place] [address] * (ABNORMAL) Basic Metabolic Panel (non-fasting) (09/04/2022 12:26 AM EDT) Glucose 131 65 - 199 mg/dL [facility] Comment:Diabetes: >=200 mg/d L plus symptoms Blood Urea Nitrogen 30(H) 8 - 18 mg/dL [facility] Creatinine 0.53(L) 0.70 - 1.20 mg/dL [facility] Sodium 141 135 - 145 mmol/L [facility] Potassium 4.3 3.5 - 5.0 mmol/L [facility] Comment: Please note: ??Patients with WBC >100,000 may have falsely elevated Potassium levels. ??For accurate Potassium quantification in these patients send serum separator tube (gold top) for subsequent determinations. ??Contact the Clinical Chemistry Laboratory if there are any questions. Chloride 104 98 - 107 mmol/L [facility] Carbon Dioxide 29 22 - 31 mmol/L [facility] Anion Gap 8 5 - 15 mmol/L [facility] Calcium 9.4 8.5 - 10.5 mg/dL [facility] Est Glomerular Filtration Rate 105 >=60 mL/min/1. 73 m?? [facility] Comment: This patient's estimated GFR was [...] In Lab Richard Pascal MD CHEMISTRY ORDERABLES [facility] [place] [address] * Phosphorus (09/04/2022 12:26 AM EDT) Phosphorus 3.2 2.5 - 4.5 mg/dL [facility] Blood 09/04/2022 12:2 6 AM EDT 09/04/2022 12:38 AM EDT Narrative Resulting Agency Comment Spec In Lab Richard Pascal MD CHEMISTRY ORDERABLES [facility] [place] [address] * Magnesium (09/04/2022 12:26 AM EDT) Magnesium 0.88 0.69 - 1.07 mmol/L [facility] Blood 09/04/2022 12:2 6 AM EDT 09/04/2022 12:38 AM EDT Narrative Resulting Agency Comment Spec In Lab Richard Pascal MD CHEMISTRY ORDERABLES Performing Organization Address [facility] Co de Phone Number [facility] [place] [address] * POCT Glucose (09/04/2022 12:19 AM EDT) Glucose, POC 125 65 - 199 mg/dL [facility] Comment: Supplemental ranges: <140 mg/dL before meals <180 mg/dL all other times of the day Blood 09/04/2022 12:1 9 AM EDT 09/04/2022 12:19 AM EDT Tenisha Sandy MD POINT OF CARE MARIANELA T ORDERABLES Performing Organization Address [facility] Co de Phone Number [facility] [place] [address] * POCT Glucose (09/03/2022 7:30 PM EDT) Glucose, POC 166 65 - 199 mg/dL [facility] Comment: Supplemental ranges: <140 mg/dL before meals <180 mg/dL all other times of the day Blood 09/03/2022 7:30 PM EDT 09/03/2022 7:30 PM EDT Tenisha Sandy MD POINT OF CARE MARIANELA T ORDERABLES Performing Organization Address [facility] Co de Phone Number [facility] [place] [address] * (ABNORMAL) POCT Glucose (09/03/2022 4:00 PM EDT) Glucose, POC 207(H) 65 - 199 mg/dL [facility] Comment: Supplemental ranges: <140 mg/dL before meals <180 mg/dL all other times of the day Blood 09/03/2022 4:00 PM EDT 09/03/2022 4:00 PM EDT Tenisha Sandy MD POINT OF CARE MARIANELA T ORDERABLES [facility] [place] [address] * (ABNORMAL) POCT Glucose (09/03/2022 12:43 PM EDT) Glucose, POC 207(H) 65 - 199 mg/dL [facility] Comment: Supplemental ranges: <140 mg/dL before meals <180 mg/dL all other times of the day Blood 09/03/2022 12:4 3 PM EDT 09/03/2022 12:43 PM EDT Tenisha Sandy MD POINT OF CARE MARIANELA T ORDERABLES Performing Organization Address [facility] Co de Phone Number [facility] [place] [address] * POCT Glucose (09/03/2022 7:48 AM EDT) Glucose, POC 173 65 - 199 mg/dL [facility] Comment: Supplemental ranges: <140 mg/dL before meals <180 mg/dL all other times of the day Blood 09/03/2022 7:48 AM EDT 09/03/2022 7:48 AM EDT Tenisha Sandy MD POINT OF CARE MARIANELA T ORDERABLES Performing Organization Address [facility] Co de Phone Number [facility] [place] [address] * POCT Glucose (09/03/2022 4:52 AM EDT) Glucose, POC 91 65 - 199 mg/dL [facility] Comment: Supplemental ranges: <140 mg/dL before meals <180 mg/dL all other times of the day Blood 09/03/2022 4:52 AM EDT 09/03/2022 4:52 AM EDT Tenisha Sandy MD POINT OF CARE MARIANELA T ORDERABLES Performing Organization Address City/[facility]/ZIP Co de Phone Number [facility] [place] [address] * Differential, Automated (09/03/2022 12:40 AM EDT) Pathologist [facility] [place] Neutrophil % 42.9 % [facility] Neutrophil Absolute 2.19 1.70 - 6.10 x10(3)/[facility] Lymph % 38.0 % [facility] Lymphocytes Abs 1.9 0.9 - 3.2 x10(3)/[facility] Monocyte % 11.6 % [facility] Monocyte Abs 0.6 0.3 - 0.9 x10(3)/[facility] Eos % 5.7 % [facility] Eosinophils Abs 0.3 0.0 - 0.4 x10(3)/[facility] Basophil % 1.6 % [facility] Baso Absolute 0.1 0.0 - 0.1 x10(3)/[facility] Immature Gran % 0.20 % [facility] Comment: Immature granulocytes(IG's)percentage and absolute count will include metamyelocytes, myelocytes, and promyelocytes. Blood smears from CBCs yielding IG's will be scanned manually for concordance. If this scan disagrees with the automated IG or if promyelocytes are noted, a manual differential will be performed. Immature Gran Absolute 0.01 0.00 - 0.04 x10(3)/[facility] Blood 09/03/2022 12:4 0 AM EDT 09/03/2022 12:51 AM EDT Narrative Resulting Agency Comment Spec In Lab Tyler Cobb MD HEMATOLOGY ORDERABLE S [facility] [place] [address] * (ABNORMAL) Hemogram (09/03/2022 12:40 AM EDT) Pathologist [facility] [place] White Blood Cell 5.1 4.0 - 9.5 x10(3)/ L [facility] Red Blood Cell 3.75(L) 4.00 - 5.21 x10(6)/[facility] Comment:Dimorphic RBC popula tion. Hemoglobin 8.4(L) 11.7 - 15.5 g/dL [facility] Hematocrit 27.1(L) 35.7 - 45.8 % [facility] Mean Cell Volume 72.3(L) 82.6 - 94.4 fL [facility] Mean Cell Hemoglobin 22.4(L) 27.1 - 32.0 pg [facility] Mean Cell Hemoglobin Concentration 31.0(L) 31.7 - 35.0 g/dL [facility] Platelet 305 145 - 357 x10(3)/mc L [facility] RDW Standard Deviation Not Measured 37.0 - 46.0 fL [facility] RDW coefficient of variation Not Measured 11.5 - 14.1 % [facility] Mean Platelet Volume 9.8 7.6 - 12.9 fL [facility] NRBC% auto 0.0 % [facility] NRBC Absolute 0.000 0.000 - 0.000 x10(3)/mc L [facility] Blood 09/03/2022 12:4 0 AM EDT 09/03/2022 12:51 AM EDT Narrative Resulting Agency Comment Spec In Lab Tyler Cobb MD HEMATOLOGY ORDERABLE S [facility] [place] [address] * (ABNORMAL) Basic Metabolic Panel (non-fasting) (09/03/2022 12:40 AM EDT) Glucose 107 65 - 199 mg/dL [facility] Comment:Diabetes: >=200 mg/d L plus symptoms Blood Urea Nitrogen 28(H) 8 - 18 mg/dL [facility] Creatinine 0.49(L) 0.70 - 1.20 mg/dL [facility] Sodium 138 135 - 145 mmol/L [facility] Potassium 4.1 3.5 - 5.0 mmol/L [facility] Comment: Please note: ??Patients with WBC >100,000 may have falsely elevated Potassium levels. ??For accurate Potassium quantification in these patients send serum separator tube (gold top) for subsequent determinations. ??Contact the Clinical Chemistry Laboratory if there are any questions. Chloride 102 98 - 107 mmol/L [facility] Carbon Dioxide 29 22 - 31 mmol/L [facility] Anion Gap 7 5 - 15 mmol/L [facility] Calcium 9.2 8.5 - 10.5 mg/dL [facility] Est Glomerular Filtration Rate 106 >=60 mL/min/1. 73 m?? [facility] Comment: This patient's estimated GFR was [...] Pascal MD CHEMISTRY ORDERABLES Performing Organization Address [facility] Co de Phone Number [facility] [place] [address] * Phosphorus (09/03/2022 12:40 AM EDT) Phosphorus 3.4 2.5 - 4.5 mg/dL [facility] Blood 09/03/2022 12:4 0 AM EDT 09/03/2022 12:51 AM EDT Narrative Resulting Agency Comment Spec In Lab Richard Pascal MD CHEMISTRY ORDERABLES Performing Organization Address [facility] Co de Phone Number [facility] [place] [address] * Magnesium (09/03/2022 12:40 AM EDT) Magnesium 0.96 0.69 - 1.07 mmol/L [facility] Blood 09/03/2022 12:4 0 AM EDT 09/03/2022 12:51 AM EDT Narrative Resulting Agency Comment Spec In Lab Richard Pascal MD CHEMISTRY ORDERABLES [facility] [place] [address] * POCT Glucose (09/02/2022 11:05 PM EDT) Glucose, POC 106 65 - 199 mg/dL [facility] Comment: Supplemental ranges: <140 mg/dL before meals <180 mg/dL all other times of the day Blood 09/02/2022 11:0 5 PM EDT 09/02/2022 11:05 PM EDT Tenisha Sandy MD POINT OF CARE MARIANELA T ORDERABLES Performing Organization Address [facility] Co de Phone Number [facility] [place] [address] * POCT Glucose (09/02/2022 8:05 PM EDT) Glucose, POC 107 65 - 199 mg/dL [facility] Comment: Supplemental ranges: <140 mg/dL before meals <180 mg/dL all other times of the day Blood 09/02/2022 8:05 PM EDT 09/02/2022 8:05 PM EDT Tenisha Sandy MD POINT OF CARE MARIANELA T ORDERABLES Performing Organization Address City/[facility]/ZIP Co de Phone Number [facility] [place] [address] * POCT Glucose (09/02/2022 4:22 PM EDT) Glucose, POC 183 65 - 199 mg/dL [facility] Comment: Supplemental ranges: <140 mg/dL before meals <180 mg/dL all other times of the day Blood 09/02/2022 4:22 PM EDT 09/02/2022 4:22 PM EDT Tenisha Sandy MD POINT OF CARE MARIANELA T ORDERABLES [facility] [place] [address] * POCT Glucose (09/02/2022 12:22 PM EDT) Glucose, POC 194 65 - 199 mg/dL [facility] Comment: Supplemental ranges: <140 mg/dL before meals <180 mg/dL all other times of the day Blood 09/02/2022 12:2 2 PM EDT 09/02/2022 12:22 PM EDT Tenisha Sandy MD POINT OF CARE MARIANELA T ORDERABLES [facility] [place] [address] * POCT Glucose (09/02/2022 7:49 AM EDT) Glucose, POC 141 65 - 199 mg/dL [facility] Comment: Supplemental ranges: <140 mg/dL before meals <180 mg/dL all other times of the day Blood 09/02/2022 7:49 AM EDT 09/02/2022 7:49 AM EDT Tenisha Sandy MD POINT OF CARE MARIANELA T ORDERABLES [facility] [place] [address] * POCT Glucose (09/02/2022 5:43 AM EDT) Glucose, POC 102 65 - 199 mg/dL [facility] Comment: Supplemental ranges: <140 mg/dL before meals <180 mg/dL all other times of the day Blood 09/02/2022 5:43 AM EDT 09/02/2022 5:43 AM EDT Tenisha Sandy MD POINT OF CARE MARIANELA T ORDERABLES [facility] [place] [address] * POCT Glucose (09/02/2022 3:44 AM EDT) Glucose, POC 112 65 - 199 mg/dL [facility] Comment: Supplemental ranges: <140 mg/dL before meals <180 mg/dL all other times of the day Blood 09/02/2022 3:44 AM EDT 09/02/2022 3:44 AM EDT Tenisha Sandy MD POINT OF CARE MARIANELA T ORDERABLES Performing Organization Address [facility] Co de Phone Number [facility] [address] * (ABNORMAL) Reticulocyte Count (09/02/2022 1:05 AM EDT) [facility] Reticulocyte % 2.2 0.7 - 2.5 % [facility] Retic Abs # 0.080 0.020 - 0.110 x10(6)/[facility] Immature Retic% 45.2(H) 0.5 - 13.8 % [facility] Reticulated Hgb 22.9(L) 29.8 - 39.4 pg [facility] Blood Venous Draw / Unknown 09/02/2022 1:05 AM EDT 09/02/2022 1:19 AM EDT Narrative Resulting Agency Comment Spec In Lab Irwin Jones MD HEMATOLOGY ORDERAB LES Performing Organization Address [facility] Co de Phone Number [facility] [place] [address] * Differential, Automated (09/02/2022 1:05 AM EDT) [facility] Neutrophil % 48.4 % [facility] Neutrophil Absolute 2.83 1.70 - 6.10 x10(3)/[facility] Lymph % 34.6 % [facility] Lymphocytes Abs 2.0 0.9 - 3.2 x10(3)/[facility] Monocyte % 10.4 % [facility] Monocyte Abs 0.6 0.3 - 0.9 x10(3)/[facility] Eos % 4.8 % [facility] Eosinophils Abs 0.3 0.0 - 0.4 x10(3)/[facility] Basophil % 1.5 % [facility] Baso Absolute 0.1 0.0 - 0.1 x10(3)/[facility] Immature Gran % 0.30 % [facility] Comment: Immature granulocytes(IG's)percentage and absolute count will include metamyelocytes, myelocytes, and promyelocytes. Blood smears from CBCs yielding IG's will be scanned manually for concordance. If this scan disagrees with the automated IG or if promyelocytes are noted, a manual differential will be performed. Immature Gran Absolute 0.02 0.00 - 0.04 x10(3)/[facility] Blood 09/02/2022 1:05 AM EDT 09/02/2022 1:19 AM EDT Narrative Resulting Agency Comment Spec In Lab Tyler Cobb MD HEMATOLOGY ORDERABLE S [facility] [place] [address] * (ABNORMAL) Hemogram (09/02/2022 1:05 AM EDT) White Blood Cell 5.9 4.0 - 9.5 x10(3)/[facility] Red Blood Cell 3.81(L) 4.00 - 5.21 x10(6)/[facility] Comment: CORRECTION: ADDING COMMENT : Dimorphic RBC population. Corrected from 3.81 x10(6)/[facility] [LOW] on 09/02/22 11:26:40 EDT by Jigar Palmer Hemoglobin 8.3(L) 11.7 - 15.5 g/dL [facility] Hematocrit 27.7(L) 35.7 - 45.8 % [facility] Mean Cell Volume 72.7(L) 82.6 - 94.4 fL [facility] Mean Cell Hemoglobin 21.8(L) 27.1 - 32.0 pg [facility] Mean Cell Hemoglobin Concentration 30.0(L) 31.7 - 35.0 g/dL [facility] Platelet 344 145 - 357 x10(3)/ L [facility] RDW Standard Deviation Not Measured 37.0 - 46.0 fL [facility] RDW coefficient of variation Not Measured 11.5 - 14.1 % [facility] Mean Platelet Volume 9.8 7.6 - 12.9 fL [facility] NRBC% auto 0.0 % [facility] NRBC Absolute 0.000 0.000 - 0.000 x10(3)/mc L [facility] Blood 09/02/2022 1:05 AM EDT 09/02/2022 1:19 AM EDT Narrative Resulting Agency Comment Spec In Lab Tyler Cobb MD HEMATOLOGY ORDERABLE S [facility] [place] [address] * (ABNORMAL) Basic Metabolic Panel (non-fasting) (09/02/2022 1:05 AM EDT) Glucose 114 65 - 199 mg/dL [facility] Comment:Diabetes: >=200 mg/d L plus symptoms Blood Urea Nitrogen 30(H) 8 - 18 mg/dL [facility] Creatinine 0.52(L) 0.70 - 1.20 mg/dL [facility] Sodium 136 135 - 145 mmol/L [facility] Potassium 4.4 3.5 - 5.0 mmol/L [facility] Comment: Please note: ??Patients with WBC >100,000 may have falsely elevated Potassium levels. ??For accurate Potassium quantification in these patients send serum separator tube (gold top) for subsequent determinations. ??Contact the Clinical Chemistry Laboratory if there are any questions. Chloride 100 98 - 107 mmol/L [facility] Carbon Dioxide 30 22 - 31 mmol/L [facility] Anion Gap 6 5 - 15 mmol/L [facility] [facility] Calcium 9.5 8.5 - 10.5 mg/dL [facility] Est Glomerular Filtration Rate 105 >=60 mL/min/1. 73 m?? [facility] Comment: This patient's estimated GFR was [...] In Lab Richard Pascal MD CHEMISTRY ORDERABLES [facility] [place] [address] * Phosphorus (09/02/2022 1:05 AM EDT) Phosphorus 3.9 2.5 - 4.5 mg/dL [facility] Blood 09/02/2022 1:05 AM EDT 09/02/2022 1:19 AM EDT Narrative Resulting Agency Comment Spec In Lab Richard Pascal MD CHEMISTRY ORDERABLES Performing Organization Address City/[facility]/ZIP Co de Phone Number [facility] [place] [address] * Magnesium (09/02/2022 1:05 AM EDT) Magnesium 0.87 0.69 - 1.07 mmol/L [facility] Blood 09/02/2022 1:05 AM EDT 09/02/2022 1:19 AM EDT Narrative Resulting Agency Comment Spec In Lab Richard Pascal MD CHEMISTRY ORDERABLES Performing Organization Address City/[facility]/ZIP Co de Phone Number [facility] [place] [address] * POCT Glucose (09/02/2022 12:51 AM EDT) Glucose, POC 110 65 - 199 mg/dL [facility] Comment: Supplemental ranges: <140 mg/dL before meals <180 mg/dL all other times of the day Blood 09/02/2022 12:5 1 AM EDT 09/02/2022 12:51 AM EDT Tenisha Sandy MD POINT OF CARE MARIANELA T ORDERABLES Performing Organization Address City/[facility] Co de Phone Number [facility] [place] [address] * POCT Glucose (09/01/2022 8:11 PM EDT) Glucose, POC 93 65 - 199 mg/dL [facility] Comment: Supplemental ranges: <140 mg/dL before meals <180 mg/dL all other times of the day Blood 09/01/2022 8:11 PM EDT 09/01/2022 8:11 PM EDT Tenisha Sandy MD POINT OF CARE MARIANELA T ORDERABLES Performing Organization Address [facility] Co de Phone Number [facility] [place] [address] * POCT Glucose (09/01/2022 5:41 PM EDT) Glucose, POC 170 65 - 199 mg/dL [facility] Comment: Supplemental ranges: <140 mg/dL before meals <180 mg/dL all other times of the day Blood 09/01/2022 5:41 PM EDT 09/01/2022 5:41 PM EDT Tenisha Sandy MD POINT OF CARE MARIANELA T ORDERABLES Performing Organization Address City/[facility] Co de Phone Number [facility] [place] [address] * POCT Glucose (09/01/2022 11:33 AM EDT) Glucose, POC 171 65 - 199 mg/dL [facility] Comment: Supplemental ranges: <140 mg/dL before meals <180 mg/dL all other times of the day Blood 09/01/2022 11:3 3 AM EDT 09/01/2022 11:33 AM EDT Tenisha Sandy MD POINT OF CARE MARIANELA T ORDERABLES Performing Organization Address City/[facility]/ZIP Co de Phone Number [facility] [place] [address] * POCT Glucose (09/01/2022 7:55 AM EDT) Glucose, POC 166 65 - 199 mg/dL [facility] Comment: Supplemental ranges: <140 mg/dL before meals <180 mg/dL all other times of the day Blood 09/01/2022 7:55 AM EDT 09/01/2022 7:55 AM EDT Tenisha Sandy MD POINT OF CARE MARIANELA T ORDERABLES Performing Organization Address [facility] Co de Phone Number [facility] [place] [address] * POCT Glucose (09/01/2022 3:29 AM EDT) Glucose, POC 87 65 - 199 mg/dL [facility] Comment: Supplemental ranges: <140 mg/dL before meals <180 mg/dL all other times of the day Blood 09/01/2022 3:29 AM EDT 09/01/2022 3:29 AM EDT Tenisha Sandy MD POINT OF CARE MARIANELA T ORDERABLES Performing Organization Address City/[facility] Co de Phone Number [facility] [place] [address] * EKG 12 Lead (09/01/2022 2:24 AM EDT) Ventricular rate 80 BPM MUSE SYSTEM Atrial Rate 80 BPM MUSE SYSTEM P-R Interval 150 ms MUSE SYSTEM QRS Duration 76 ms MUSE SYSTEM Q-T Interval 412 ms MUSE SYSTEM QTC Calculated (Bezet) 475 ms MUSE SYSTEM Calculated P [place] 50 degrees MUSE SYSTEM Calculated R [place] 70 degrees MUSE SYSTEM Calculated T [place] 174 degrees MUSE SYSTEM INTERPRETATION Normal sinus [...] Sandy MD ECG ORDERABLES Performing Organization Address City/[facility]/ZIP Co de Phone Number MUSE SYSTEM * Scan, Peripheral Blood (09/01/2022 2:10 AM EDT) Plat estimate Increased [facility] RBC Morphology Abnormal [facility] Macrocyte 1-5 /HPF [facility] Microcyte 6-10 /HPF [facility] Hypochromia Slight [facility] Polychromasia Present >5/HPF [facility] Ovalocytes 1-5 /HPF [facility] Target Cells 1-5 /HPF [facility] [place] Cells 6-10 /HPF [facility] Plat, Giant Less than 1 /HPF [facility] Blood 09/01/2022 2:10 AM EDT 09/01/2022 2:15 AM EDT Narrative Resulting Agency Comment Spec In Lab Tyler Cobb MD HEMATOLOGY ORDERABLE S Performing Organization Address City/[facility]/ZIP Co de Phone Number [facility] [place] [address] * Differential, Automated (09/01/2022 2:10 AM EDT) Neutrophil % 46.0 % [facility] Neutrophil Absolute 2.52 1.70 - 6.10 x10(3)/[facility] Lymph % 37.1 % [facility] Lymphocytes Abs 2.0 0.9 - 3.2 x10(3)/[facility] Monocyte % 10.1 % [facility] ITAL [facility]OR[facility] Monocyte Abs 0.6 0.3 - 0.9 x10(3)/[facility] Eos % 5.3 % [facility] Eosinophils Abs 0.3 0.0 - 0.4 x10(3)/[facility] Basophil % 1.3 % [facility] Baso Absolute 0.1 0.0 - 0.1 x10(3)/[facility] Immature Gran % 0.20 % [facility] Comment: Immature granulocytes(IG's)percentage and absolute count will include metamyelocytes, myelocytes, and promyelocytes. Blood smears from CBCs yielding IG's will be scanned manually for concordance. If this scan disagrees with the automated IG or if promyelocytes are noted, a manual differential will be performed. Immature Gran Absolute 0.01 0.00 - 0.04 x10(3)/[facility] Blood 09/01/2022 2:10 AM EDT 09/01/2022 2:15 AM EDT Narrative Resulting Agency Comment Spec In Lab Tyler Cobb MD HEMATOLOGY ORDERABLE S [facility] [place] [address] * (ABNORMAL) Hemogram (09/01/2022 2:10 AM EDT) White Blood Cell 5.5 4.0 - 9.5 x10(3)/[facility] Red Blood Cell 3.95(L) 4.00 - 5.21 x10(6)/[facility] Comment:Dimorphic RBC popula tion. Hemoglobin 8.7(L) 11.7 - 15.5 g/dL [facility] Hematocrit 28.5(L) 35.7 - 45.8 % [facility] Mean Cell Volume 72.2(L) 82.6 - 94.4 fL [facility] Mean Cell Hemoglobin 22.0(L) 27.1 - 32.0 pg [facility] Mean Cell Hemoglobin Concentration 30.5(L) 31.7 - 35.0 g/dL [facility] Platelet 361(H) 145 - 357 x10(3)/[facility] RDW Standard Deviation Not Measured 37.0 - 46.0 fL [facility] RDW coefficient of variation Not Measured 11.5 - 14.1 % [facility] Mean Platelet Volume 9.5 7.6 - 12.9 fL [facility] NRBC% auto 0.0 % [facility]AL [facility] NRBC Absolute 0.000 0.000 - 0.000 x10(3)/mc L [facility] Blood 09/01/2022 2:10 AM EDT 09/01/2022 2:15 AM EDT Narrative Resulting Agency Comment Spec In Lab Tyler Cobb MD HEMATOLOGY ORDERABLE S [facility] [place] [address] * (ABNORMAL) Basic Metabolic Panel (non-fasting) (09/01/2022 2:10 AM EDT) Glucose 86 65 - 199 mg/dL [facility] Comment:Diabetes: >=200 mg/d L plus symptoms Blood Urea Nitrogen 29(H) 8 - 18 mg/dL [facility] Creatinine 0.51(L) 0.70 - 1.20 mg/dL [facility] Sodium 140 135 - 145 mmol/L [facility] Potassium 4.6 3.5 - 5.0 mmol/L [facility] Comment: Please note: ??Patients with WBC >100,000 may have falsely elevated Potassium levels. ??For accurate Potassium quantification in these patients send serum separator tube (gold top) for subsequent determinations. ??Contact the Clinical Chemistry Laboratory if there are any questions. Chloride 104 98 - 107 mmol/L [facility] Carbon Dioxide 29 22 - 31 mmol/L [facility] Anion Gap 7 5 - 15 mmol/L [facility] Calcium 9.4 8.5 - 10.5 mg/dL [facility] Est Glomerular Filtration Rate 105 >=60 mL/min/1. 73 m?? [facility] Comment: This patient's estimated GFR was [...] Pascal MD CHEMISTRY ORDERABLES Performing Organization Address [facility] Co de Phone Number [facility] [place] [address] * Phosphorus (09/01/2022 2:10 AM EDT) Phosphorus 4.3 2.5 - 4.5 mg/dL [facility] Blood 09/01/2022 2:10 AM EDT 09/01/2022 2:15 AM EDT Narrative Resulting Agency Comment Spec In Lab Richard Pascal MD CHEMISTRY ORDERABLES Performing Organization Address [facility] Co de Phone Number [facility] [place] [address] * Magnesium (09/01/2022 2:10 AM EDT) Magnesium 0.94 0.69 - 1.07 mmol/L [facility] Blood 09/01/2022 2:10 AM EDT 09/01/2022 2:15 AM EDT Narrative Resulting Agency Comment Spec In Lab Richard Pascal MD CHEMISTRY ORDERABLES Performing Organization Address [facility] Co de Phone Number [facility] [place] [address] * POCT Glucose (08/31/2022 11:46 PM EDT) Glucose, POC 93 65 - 199 mg/dL [facility] Comment: Supplemental ranges: <140 mg/dL before meals <180 mg/dL all other times of the day Blood 08/31/2022 11:4 6 PM EDT 08/31/2022 11:46 PM EDT Tenisha Sandy MD POINT OF CARE MARIANELA T ORDERABLES Performing Organization Address City/[facility] Co de Phone Number [facility] [place] [address] * POCT Glucose (08/31/2022 8:12 PM EDT) Glucose, POC 110 65 - 199 mg/dL [facility] Comment: Supplemental ranges: <140 mg/dL before meals <180 mg/dL all other times of the day Blood 08/31/2022 8:12 PM EDT 08/31/2022 8:12 PM EDT Tenisha Sandy MD POINT OF CARE MARIANELA T ORDERABLES Performing Organization Address [facility] Co de Phone Number [facility] [place] [address] * (ABNORMAL) POCT Glucose (08/31/2022 4:32 PM EDT) Glucose, POC 206(H) 65 - 199 mg/dL [facility] Comment: Supplemental ranges: <140 mg/dL before meals <180 mg/dL all other times of the day Blood 08/31/2022 4:32 PM EDT 08/31/2022 4:32 PM EDT Tenisha Sandy MD POINT OF CARE MARIANELA T ORDERABLES Performing Organization Address [facility] Co de Phone Number [facility] [place] [address] * POCT Glucose (08/31/2022 11:42 AM EDT) Glucose, POC 163 65 - 199 mg/dL [facility] Comment: Supplemental ranges: <140 mg/dL before meals <180 mg/dL all other times of the day Blood 08/31/2022 11:4 2 AM EDT 08/31/2022 11:42 AM EDT Tenisha Sandy MD POINT OF CARE MARIANELA T ORDERABLES Performing Organization Address City/[facility]/ZIP Co de Phone Number [facility] [place] [address] * XR Fluoro Barium Swallow (Modified/Video Swallow [...] who have questions please contact the health animal care taker that requested your imaging first. ? Electronically signed by: Aron Billings MD, [facility] ([phone]), at 08/31/2022 12:02 PM Narrative 08/31/2022 12:02 [...] There is delayed elevation of the larynx long-term between the vallecula and piriform sinuses. It [...] There is delayed elevation of the larynx long-term between the valleculaand piriform sinuses. It is [...] patients who have questions please contactthe health animal care taker that requested your imaging first. Electronically signed by: Aron Billings MD, [facility]([phone]), at 08/31/2022 12:02 PM Milagros Hernandez MD IMG FLUORO ORDERABLE S * POCT Glucose (08/31/2022 7:36 AM EDT) Glucose, POC 116 65 - 199 mg/dL [facility] Comment: Supplemental ranges: <140 mg/dL before meals <180 mg/dL all other times of the day Blood 08/31/2022 7:36 AM EDT 08/31/2022 7:36 AM EDT Alfonso Navarrete MD POINT [place] [address] * Differential, Automated (08/31/2022 4:30 AM EDT) Neutrophil % 59.8 % [facility] Neutrophil Absolute 4.03 1.70 - 6.10 x10(3)/[facility] Lymph % 26.3 % [facility] Lymphocytes Abs 1.8 0.9 - 3.2 x10(3)/[facility] Monocyte % 7.9 % [facility] Monocyte Abs 0.5 0.3 - 0.9 x10(3)/[facility] Eos % 4.7 % [facility] Eosinophils Abs 0.3 0.0 - 0.4 x10(3)/[facility] Basophil % 1.0 % [facility] Baso Absolute 0.1 0.0 - 0.1 x10(3)/[facility] Immature Gran % 0.30 % [facility] Comment: Immature granulocytes(IG's)percentage and absolute count will include metamyelocytes, myelocytes, and promyelocytes. Blood smears from CBCs yielding IG's will be scanned manually for concordance. If this scan disagrees with the automated IG or if promyelocytes are noted, a manual differential will be performed. Immature Gran Absolute 0.02 0.00 - 0.04 x10(3)/[facility] Blood 08/31/2022 4:30 AM EDT 08/31/2022 4:36 AM EDT Narrative Resulting Agency Comment Spec In Lab Tyler Cobb MD [place] [address] * (ABNORMAL) Hemogram (08/31/2022 4:30 AM EDT) White Blood Cell 6.7 4.0 - 9.5 x10(3)/mc L [facility] Red Blood Cell 3.97(L) 4.00 - 5.21 x10(6)/mc L [facility] Comment:Dimorphic RBC popula tion. Hemoglobin 8.7(L) 11.7 - 15.5 g/dL [facility] Hematocrit 29.2(L) 35.7 - 45.8 % [facility] Mean Cell Volume 73.6(L) 82.6 - 94.4 fL [facility] Mean Cell Hemoglobin 21.9(L) 27.1 - 32.0 pg [facility] Mean Cell Hemoglobin Concentration 29.8(L) 31.7 - 35.0 g/dL [facility] Platelet 330 145 - 357 x10(3)/mc L [facility] RDW Standard Deviation Not Measured 37.0 - 46.0 fL [facility] RDW coefficient of variation Not Measured 11.5 - 14.1 % [facility] Mean Platelet Volume 9.8 7.6 - 12.9 fL [facility] NRBC% auto 0.0 % [facility] NRBC Absolute 0.000 0.000 - 0.000 x10(3)/mc L [facility] Blood 08/31/2022 4:30 AM EDT 08/31/2022 4:36 AM EDT Narrative Resulting Agency Comment Spec In Lab Tyler Cobb MD HEMATOLOGY ORDERABLE S Performing Organization Address City/[facility]/ZIP Co de Phone Number [facility] [place] [address] * Phosphorus (08/31/2022 4:30 AM EDT) Phosphorus 3.4 2.5 - 4.5 mg/dL [facility] Blood 08/31/2022 4:30 AM EDT 08/31/2022 4:36 AM EDT Narrative Resulting Agency Comment Spec In Lab Richard Pascal MD CHEMISTRY ORDERABLES Performing Organization Address City/[facility]/ZIP Co de Phone Number [facility] [place] [address] * Magnesium (08/31/2022 4:30 AM EDT) Magnesium 0.81 0.69 - 1.07 mmol/L [facility] Blood 08/31/2022 4:30 AM EDT 08/31/2022 4:36 AM EDT Narrative Resulting Agency Comment Spec In Lab Richard Pascal MD CHEMISTRY ORDERABLES Performing Organization Address [facility] Co de Phone Number [facility] [place] [address] * POCT Glucose (08/31/2022 4:08 AM EDT) Glucose, POC 88 65 - 199 mg/dL [facility] Comment: Supplemental ranges: <140 mg/dL before meals <180 mg/dL all other times of the day Blood 08/31/2022 4:08 AM EDT 08/31/2022 4:08 AM EDT Alfonso Navarrete MD POINT OF CARE TEST O RDERABLES Performing Organization Address [facility] Co de Phone Number [facility] [place] [address] * POCT Glucose (08/31/2022 12:03 AM EDT) Glucose, POC 98 65 - 199 mg/dL [facility] Comment: Supplemental ranges: <140 mg/dL before meals <180 mg/dL all other times of the day Blood 08/31/2022 12:0 3 AM EDT 08/31/2022 12:03 AM EDT Alfonso Navarrete MD POINT OF CARE TEST O RDERABLES Performing Organization Address [facility] Co de Phone Number [facility] [place] [address] * POCT Glucose (08/30/2022 7:58 PM EDT) Glucose, POC 131 65 - 199 mg/dL [facility] Comment: Supplemental ranges: <140 mg/dL before meals <180 mg/dL all other times of the day Blood 08/30/2022 7:58 PM EDT 08/30/2022 7:58 PM EDT Alfonso Navarrete MD POINT OF CARE TEST O RDERABLES Performing Organization Address [facility] Co de Phone Number [facility] [place] [address] * POCT Glucose (08/30/2022 4:59 PM EDT) Glucose, POC 169 65 - 199 mg/dL [facility] Comment: Supplemental ranges: <140 mg/dL before meals <180 mg/dL all other times of the day Blood 08/30/2022 4:59 PM EDT 08/30/2022 4:59 PM EDT Roland Pruett MD POINT OF CARE TEST O RDERABLES Performing Organization Address [facility] Co de Phone Number [facility] [place] [address] * POCT Glucose (08/30/2022 11:29 AM EDT) Glucose, POC 168 65 - 199 mg/dL [facility] Comment: Supplemental ranges: <140 mg/dL before meals <180 mg/dL all other times of the day Blood 08/30/2022 11:2 9 AM EDT 08/30/2022 11:29 AM EDT Roland Pruett MD POINT OF CARE TEST O RDERABLES Performing Organization Address [facility] Co de Phone Number [facility] [place] [address] * POCT Glucose (08/30/2022 8:59 AM EDT) Glucose, POC 160 65 - 199 mg/dL [facility] Comment: Supplemental ranges: <140 mg/dL before meals <180 mg/dL all other times of the day Blood 08/30/2022 8:59 AM EDT 08/30/2022 8:59 AM EDT Roland Pruett MD POINT [place] [address] * Differential, Automated (08/30/2022 4:05 AM EDT) Pathologist [facility] Neutrophil % 61.4 % [facility] Neutrophil Absolute 4.26 1.70 - 6.10 x10(3)/[facility] Lymph % 24.7 % [facility] Lymphocytes Abs 1.7 0.9 - 3.2 x10(3)/[facility] Monocyte % 7.6 % [facility] Monocyte Abs 0.5 0.3 - 0.9 x10(3)/[facility] Eos % 4.7 % [facility] Eosinophils Abs 0.3 0.0 - 0.4 x10(3)/[facility] Basophil % 1.2 % [facility] Baso Absolute 0.1 0.0 - 0.1 x10(3)/[facility] Immature Gran % 0.40 % [facility] Comment: Immature granulocytes(IG's)percentage and absolute count will include metamyelocytes, myelocytes, and promyelocytes. Blood smears from CBCs yielding IG's will be scanned manually for concordance. If this scan disagrees with the automated IG or if promyelocytes are noted, a manual differential will be performed. Immature Gran Absolute 0.03 0.00 - 0.04 x10(3)/[facility] LABORATORY Blood 08/30/2022 4:05 AM EDT 08/30/2022 4:13 AM EDT Narrative Resulting Agency Comment Spec In Lab Roland Pruett MD [place] [address] * (ABNORMAL) Hemogram (08/30/2022 4:05 AM EDT) Pathologist [facility] [place] White Blood Cell 7.0 4.0 - 9.5 x10(3)/mc L [facility] Red Blood Cell 3.81(L) 4.00 - 5.21 x10(6)/mc L [facility] Hemoglobin 8.4(L) 11.7 - 15.5 g/dL [facility] Hematocrit 27.8(L) 35.7 - 45.8 % [facility] Mean Cell Volume 73.0(L) 82.6 - 94.4 fL [facility] Mean Cell Hemoglobin 22.0(L) 27.1 - 32.0 pg [facility] Mean Cell Hemoglobin Concentration 30.2(L) 31.7 - 35.0 g/dL [facility] Platelet 407(H) 145 - 357 x10(3)/mc L [facility] RDW Standard Deviation Not Measured 37.0 - 46.0 fL [facility] RDW coefficient of variation Not Measured 11.5 - 14.1 % [facility] Mean Platelet Volume 9.4 7.6 - 12.9 fL [facility] NRBC% auto 0.0 % [facility] NRBC Absolute 0.000 0.000 - 0.000 x10(3)/ L [facility] Blood 08/30/2022 4:05 AM EDT 08/30/2022 4:13 AM EDT Narrative Resulting Agency Comment Spec In Lab Roland Pruett MD HEMATOLOGY ORDERABLE S [facility] [place] [address] * Phosphorus (08/30/2022 4:05 AM EDT) Phosphorus 3.7 2.5 - 4.5 mg/dL [facility] Blood 08/30/2022 4:05 AM EDT 08/30/2022 4:13 AM EDT Narrative Resulting Agency Comment Spec In Lab Roland Pruett MD CHEMISTRY ORDERABLES [facility] [place] [address] * Magnesium (08/30/2022 4:05 AM EDT) Magnesium 0.90 0.69 - 1.07 mmol/L [facility] Blood 08/30/2022 4:05 AM EDT 08/30/2022 4:13 AM EDT Narrative Resulting Agency Comment Spec In Lab Roland Pruett MD CHEMISTRY ORDERABLES [facility] [place] [address] * (ABNORMAL) Basic Metabolic Panel (non-fasting) (08/30/2022 4:05 AM EDT) Glucose 133 65 - 199 mg/dL [facility] Comment:Diabetes: >=200 mg/d L plus symptoms Blood Urea Nitrogen 19(H) 8 - 18 mg/dL [facility] Creatinine 0.50(L) 0.70 - 1.20 mg/dL [facility] Sodium 140 135 - 145 mmol/L [facility] Potassium 4.1 3.5 - 5.0 mmol/L [facility] Comment: Please note: ??Patients with WBC >100,000 may have falsely elevated Potassium levels. ??For accurate Potassium quantification in these patients send serum separator tube (gold top) for subsequent determinations. ??Contact the Clinical Chemistry Laboratory if there are any questions. Chloride 104 98 - 107 mmol/L [facility] Carbon Dioxide 28 22 - 31 mmol/L [facility] Anion Gap 8 5 - 15 mmol/L [facility] Calcium 9.4 8.5 - 10.5 mg/dL [facility] Est Glomerular Filtration Rate 106 >=60 mL/min/1. 73 m?? [facility] Comment: This patient's estimated GFR was [...] Pruett MD CHEMISTRY ORDERABLES Performing Organization Address City/[facility]/ZIP Co de Phone Number [facility] [place] [address] * POCT Glucose (08/30/2022 4:00 AM EDT) Glucose, POC 128 65 - 199 mg/dL [facility] Comment: Supplemental ranges: <140 mg/dL before meals <180 mg/dL all other times of the day Blood 08/30/2022 4:00 AM EDT 08/30/2022 4:00 AM EDT Roland Pruett MD POINT OF CARE TEST O RDERABLES Performing Organization Address City/[facility] Co de Phone Number [facility] [place] [address] * POCT Glucose (08/29/2022 11:58 PM EDT) Glucose, POC 155 65 - 199 mg/dL [facility] Comment: Supplemental ranges: <140 mg/dL before meals <180 mg/dL all other times of the day Blood 08/29/2022 11:5 8 PM EDT 08/29/2022 11:58 PM EDT Roland Pruett MD POINT OF CARE TEST O RDERABLES Performing Organization Address City/[facility]/ZIP Co de Phone Number [facility] [place] [address] * POCT Glucose (08/29/2022 8:16 PM EDT) Glucose, POC 146 65 - 199 mg/dL [facility] Comment: Supplemental ranges: <140 mg/dL before meals <180 mg/dL all other times of the day Blood 08/29/2022 8:16 PM EDT 08/29/2022 8:16 PM EDT Roland Pruett MD POINT OF CARE TEST O RDERABLES Performing Organization Address City/[facility]/ZIP Co de Phone Number [facility] [place] [address] * POCT Glucose (08/29/2022 4:08 PM EDT) Glucose, POC 194 65 - 199 mg/dL [facility] Comment: Supplemental ranges: <140 mg/dL before meals <180 mg/dL all other times of the day Blood 08/29/2022 4:08 PM EDT 08/29/2022 4:08 PM EDT Roland Pruett MD POINT OF CARE TEST O RDAV Performing Organization Address [facility] Co de Phone Number [facility] [place] [address] * Valproic Acid Level, Total (08/29/2022 11:35 AM EDT) Valproic Acid 25 mg/L [facility] Comment: Therapeutic Range: Anticonvulsant Therapy: ??50-100 mg/L Manic Episodes Associated with Bipolar Disorder: ??50-125 mg/L Blood 08/29/2022 11:3 5 AM EDT 08/29/2022 11:44 AM EDT Narrative Resulting Agency Comment Spec In Lab Roland Pruett MD CHEMISTRY ORDERABLES Performing Organization Address [facility] Co de Phone Number [facility] [place] [address] * (ABNORMAL) POCT Glucose (08/29/2022 11:34 AM EDT) Glucose, POC 209(H) 65 - 199 mg/dL [facility] Comment: Supplemental ranges: <140 mg/dL before meals <180 mg/dL all other times of the day Blood 08/29/2022 11:3 4 AM EDT 08/29/2022 11:34 AM EDT Roland Pruett MD POINT [place] [address] * Differential, Automated (08/29/2022 9:30 AM EDT) Pathologist [facility] [place] Neutrophil % 72.4 % [facility] Neutrophil Absolute 5.42 1.70 - 6.10 x10(3)/[facility] Lymph % 16.8 % [facility] Lymphocytes Abs 1.3 0.9 - 3.2 x10(3)/[facility] Monocyte % 6.5 % [facility] Monocyte Abs 0.5 0.3 - 0.9 x10(3)/[facility] Eos % 3.2 % [facility] Eosinophils Abs 0.2 0.0 - 0.4 x10(3)/[facility] Basophil % 0.8 % [facility] Baso Absolute 0.1 0.0 - 0.1 x10(3)/[facility] Immature Gran % 0.30 % [facility] Comment: Immature granulocytes(IG's)percentage and absolute count will include metamyelocytes, myelocytes, and promyelocytes. Blood smears from CBCs yielding IG's will be scanned manually for concordance. If this scan disagrees with the automated IG or if promyelocytes are noted, a manual differential will be performed. Immature Gran Absolute 0.02 0.00 - 0.04 x10(3)/[facility] Blood 08/29/2022 9:30 AM EDT 08/29/2022 9:31 AM EDT Narrative Resulting Agency Comment Spec In Lab Tyler Cobb MD HEMATOLOGY ORDERABLE S [facility] [place] [address] * (ABNORMAL) Hemogram (08/29/2022 9:30 AM EDT) Pathologist [facility] [place] White Blood Cell 7.5 4.0 - 9.5 x10(3)/[facility] Red Blood Cell 4.01 4.00 - 5.21 x10(6)/[facility] Comment:Dimorphic RBC popula tion. Hemoglobin 8.7(L) 11.7 - 15.5 g/dL [facility] Hematocrit 28.5(L) 35.7 - 45.8 % [facility] Mean Cell Volume 71.1(L) 82.6 - 94.4 fL [facility] Mean Cell Hemoglobin 21.7(L) 27.1 - 32.0 pg [facility] Mean Cell Hemoglobin Concentration 30.5(L) 31.7 - 35.0 g/dL [facility] Platelet 448(H) 145 - 357 x10(3)/mc L [facility] RDW Standard Deviation Not Measured 37.0 - 46.0 fL [facility] RDW coefficient of variation Not Measured 11.5 - 14.1 % [facility] Mean Platelet Volume 9.5 7.6 - 12.9 fL [facility] NRBC% auto 0.0 % [facility] NRBC Absolute 0.000 0.000 - 0.000 x10(3)/[facility] Blood 08/29/2022 9:30 AM EDT 08/29/2022 9:31 AM EDT Narrative Resulting Agency Comment Spec In Lab Tyler Cobb MD HEMATOLOGY ORDERABLE S [facility] [place] [address] * Phosphorus (08/29/2022 9:30 AM EDT) Phosphorus 3.4 2.5 - 4.5 mg/dL [facility] Blood 08/29/2022 9:30 AM EDT 08/29/2022 9:31 AM EDT Narrative Resulting Agency Comment Spec In Lab Richard Pascal MD CHEMISTRY ORDERABLES Performing Organization Address City/[facility]/ZIP Co de Phone Number [facility] [place] [address] * Magnesium (08/29/2022 9:30 AM EDT) Magnesium 0.81 0.69 - 1.07 mmol/L [facility] Blood 08/29/2022 9:30 AM EDT 08/29/2022 9:31 AM EDT Narrative Resulting Agency Comment Spec In Lab Richard Pascal MD CHEMISTRY ORDERABLES [facility] [place] [address] * (ABNORMAL) Basic Metabolic Panel (non-fasting) (08/29/2022 9:30 AM EDT) Glucose 289(H) 65 - 199 mg/dL [facility] Comment:Diabetes: >=200 mg/d L plus symptoms Blood Urea Nitrogen 19(H) 8 - 18 mg/dL [facility] Creatinine 0.47(L) 0.70 - 1.20 mg/dL [facility] Sodium 137 135 - 145 mmol/L [facility] Potassium 4.4 3.5 - 5.0 mmol/L [facility] Comment: Please note: ??Patients with WBC >100,000 may have falsely elevated Potassium levels. ??For accurate Potassium quantification in these patients send serum separator tube (gold top) for subsequent determinations. ??Contact the Clinical Chemistry Laboratory if there are any questions. Chloride 103 98 - 107 mmol/L [facility] Carbon Dioxide 25 22 - 31 mmol/L [facility] Anion Gap 9 5 - 15 mmol/L [facility] Calcium 9.2 8.5 - 10.5 mg/dL [facility] Est Glomerular Filtration Rate 108 >=60 mL/min/1. 73 m?? [facility] Comment: This patient's estimated GFR was [...] Pascal MD CHEMISTRY ORDERABLES Performing Organization Address City/[facility]/ZIP Co de Phone Number [facility] [place] [address] * (ABNORMAL) POCT Glucose (08/29/2022 9:13 AM EDT) Glucose, POC 279(H) 65 - 199 mg/dL [facility] Comment: Supplemental ranges: <140 mg/dL before meals <180 mg/dL all other times of the day Blood 08/29/2022 9:13 AM EDT 08/29/2022 9:13 AM EDT Roland Pruett MD POINT OF CARE TEST O RDERABLES Performing Organization Address City/[facility] Co de Phone Number [facility] [place] [address] * Lipid Panel (Reflex Direct LDL) (08/29/2022 4:48 AM EDT) Cholesterol, Total 110 mg/dL [facility] Comment: Lower Risk: <200 mg/dL Average Risk: 200-239 mg/dL Higher Risk: >zj=647 mg/dL Triglyceride 127 mg/dL [facility] Comment: Average Risk/Lower Risk: <150 mg/dL Borderline High Risk: 150-199 mg/dL High Risk: 200-499 mg/dL Very High Risk: >hu=957 mg/dL HDL Cholesterol 34 mg/dL [facility] Comment: Males: ?? Higher Risk: <40 mg/dL Females: ?? Higher Risk: <50 mg/dL LDL Cholesterol 51 mg/dL [facility] Comment: Lowest Risk: <100 mg/dL Lower Risk: 100-129 mg/dL Borderline High Risk: 130-159 mg/dL High Risk: 160-189 mg/dL Very High Risk: >bq=074 mg/dL Cholesterol/HDL Ratio 3.2 ratio [facility] Lipid Interpretation See Note [facility] Comment: Lipid management should be guided by a patient? s ASCVD risk, goals and preferences. ACC/AHA Guidelines recommend high intensity statin if clinical ASCVD or LDL greater than or equal to 190 mg/dL. http://[employer].com/EAN-EAD-Luhijdwrd Adults aged 40-75 with LDL 70-189 mg/dL should have their 10 year ASCVD risk estimated with the ACC/AHA ASCVD risk developer support engineer http://tools.acc.org/YKHBE-Ohrx-Eeuxozntr/ Statin should be discussed if risk greater [...] Hernandez MD CHEMISTRY ORDERABLES Performing Organization Address City/[facility]/ZIP Co de Phone Number [facility] [place] [address] * Valproic Acid Level, Total (08/29/2022 4:48 AM EDT) Valproic Acid 29 mg/L [facility] Comment: Therapeutic Range: Anticonvulsant Therapy: ??50-100 mg/L Manic Episodes Associated with Bipolar Disorder: ??50-125 mg/L Blood 08/29/2022 4:48 AM EDT 08/29/2022 4:58 AM EDT Narrative Resulting Agency Comment Spec In Lab Milagros Hernandez MD CHEMISTRY ORDERABLES [facility] [place] [address] * POCT Glucose (08/29/2022 3:53 AM EDT) Glucose, POC 152 65 - 199 mg/dL [facility] Comment: Supplemental ranges: <140 mg/dL before meals <180 mg/dL all other times of the day Blood 08/29/2022 3:53 AM EDT 08/29/2022 3:53 AM EDT Milagros Hernandez MD POINT OF CARE TEST O HUGHERAREYMUNDO Performing Organization Address City/[facility]/ZIP Co de Phone Number [facility] [place] [address] * POCT Glucose (08/29/2022 12:13 AM EDT) Glucose, POC 153 65 - 199 mg/dL [facility] Comment: Supplemental ranges: <140 mg/dL before meals <180 mg/dL all other times of the day Blood 08/29/2022 12:1 3 AM EDT 08/29/2022 12:13 AM EDT Milagros Hernandez MD POINT OF CARE TEST O HUGHERAREYMUNDO Performing Organization Address [facility]/ZIP Co de Phone Number [facility] [place] [address] * (ABNORMAL) POCT Glucose (08/28/2022 7:38 PM EDT) Glucose, POC 211(H) 65 - 199 mg/dL [facility] Comment: Supplemental ranges: <140 mg/dL before meals <180 mg/dL all other times of the day Blood 08/28/2022 7:38 PM EDT 08/28/2022 7:38 PM EDT Milagros Hernandez MD POINT OF CARE TEST O GABRIELLA [facility] [place] [address] * POCT Glucose (08/28/2022 4:33 PM EDT) Glucose, POC 196 65 - 199 mg/dL [facility] Comment: Supplemental ranges: <140 mg/dL before meals <180 mg/dL all other times of the day Blood 08/28/2022 4:33 PM EDT 08/28/2022 4:33 PM EDT Milagros Hernandez MD POINT OF CARE TEST O RDAV [facility] [place] [address] * (ABNORMAL) POCT Glucose (08/28/2022 12:06 PM EDT) Glucose, POC 221(H) 65 - 199 mg/dL [facility] Comment: Supplemental ranges: <140 mg/dL before meals <180 mg/dL all other times of the day Blood 08/28/2022 12:0 6 PM EDT 08/28/2022 12:06 PM EDT Milagros Hernandez MD POINT OF CARE TEST O GABRIELLA Performing Organization Address City/[facility] Co de Phone Number [facility] [place] [address] * Differential, Automated (08/28/2022 7:00 AM EDT) Neutrophil % 65.3 % [facility] Neutrophil Absolute 5.85 1.70 - 6.10 x10(3)/[facility] Lymph % 23.3 % [facility] Lymphocytes Abs 2.1 0.9 - 3.2 x10(3)/[facility] Monocyte % 6.8 % [facility] Monocyte Abs 0.6 0.3 - 0.9 x10(3)/[facility] Eos % 3.3 % [facility] Eosinophils Abs 0.3 0.0 - 0.4 x10(3)/[facility] Basophil % 0.9 % [facility] Baso Absolute 0.1 0.0 - 0.1 x10(3)/[facility] Immature Gran % 0.40 % [facility] Comment: Immature granulocytes(IG's)percentage and absolute count will include metamyelocytes, myelocytes, and promyelocytes. Blood smears from CBCs yielding IG's will be scanned manually for concordance. If this scan disagrees with the automated IG or if promyelocytes are noted, a manual differential will be performed. Immature Gran Absolute 0.04 0.00 - 0.04 x10(3)/mcL [facility] Blood 08/28/2022 7:00 AM EDT 08/28/2022 7:04 AM EDT Narrative Resulting Agency Comment Spec In Lab Tyler Cobb MD HEMATOLOGY ORDERABLE S [facility] [place] [address] * (ABNORMAL) Hemogram (08/28/2022 7:00 AM EDT) White Blood Cell 9.0 4.0 - 9.5 x10(3)/mc L [facility] Red Blood Cell 3.90(L) 4.00 - 5.21 x10(6)/[facility] Comment:Dimorphic RBC popula tion. Hemoglobin 8.6(L) 11.7 - 15.5 g/dL [facility] Hematocrit 27.4(L) 35.7 - 45.8 % [facility] Mean Cell Volume 70.3(L) 82.6 - 94.4 fL [facility] Mean Cell Hemoglobin 22.1(L) 27.1 - 32.0 pg [facility] Mean Cell Hemoglobin Concentration 31.4(L) 31.7 - 35.0 g/dL [facility] Platelet 464(H) 145 - 357 x10(3)/mc L [facility] RDW Standard Deviation Not Measured 37.0 - 46.0 fL [facility] RDW coefficient of variation Not Measured 11.5 - 14.1 % [facility] Mean Platelet Volume 9.5 7.6 - 12.9 fL [facility] NRBC% auto 0.0 % [facility] NRBC Absolute 0.000 0.000 - 0.000 x10(3)/ L [facility] Blood 08/28/2022 7:00 AM EDT 08/28/2022 7:04 AM EDT Narrative Resulting Agency Comment Spec In Lab Tyler Cobb MD HEMATOLOGY ORDERABLE S Performing Organization Address [facility] Co de Phone Number [facility] [place] [address] * (ABNORMAL) Phosphorus (08/28/2022 7:00 AM EDT) Phosphorus 4.6(H) 2.5 - 4.5 mg/dL [facility] Blood 08/28/2022 7:00 AM EDT 08/28/2022 7:04 AM EDT Narrative Resulting Agency Comment Spec In Lab Richard Pascal MD CHEMISTRY ORDERABLES Performing Organization Address [facility] Co de Phone Number [facility] [place] [address] * Magnesium (08/28/2022 7:00 AM EDT) Magnesium 0.87 0.69 - 1.07 mmol/L [facility] Blood 08/28/2022 7:00 AM EDT 08/28/2022 7:04 AM EDT Narrative Resulting Agency Comment Spec In Lab Richard Pascal MD CHEMISTRY ORDERABLES Performing Organization Address [facility] de Phone Number [facility] [place] [address] * (ABNORMAL) Basic Metabolic Panel (non-fasting) (08/28/2022 7:00 AM EDT) Glucose 113 65 - 199 mg/dL [facility] Comment:Diabetes: >=200 mg/d L plus symptoms Blood Urea Nitrogen 15 8 - 18 mg/dL [facility] Creatinine 0.46(L) 0.70 - 1.20 mg/dL [facility] Sodium 141 135 - 145 mmol/L [facility] Potassium 4.2 3.5 - 5.0 mmol/L [facility] Comment: Please note: ??Patients with WBC >100,000 may have falsely elevated Potassium levels. ??For accurate Potassium quantification in these patients send serum separator tube (gold top) for subsequent determinations. ??Contact the Clinical Chemistry Laboratory if there are any questions. Chloride 105 98 - 107 mmol/L [facility] Carbon Dioxide 27 22 - 31 mmol/L [facility] Anion Gap 9 5 - 15 mmol/L [facility] Calcium 9.4 8.5 - 10.5 mg/dL [facility] Est Glomerular Filtration Rate 108 >=60 mL/min/1. 73 m?? [facility] Comment: This patient's estimated GFR was [...] Pascal MD CHEMISTRY ORDERABLES Performing Organization Address City/[facility]/ZIP Co de Phone Number [facility] [place] [address] * POCT Glucose (08/28/2022 4:59 AM EDT) Glucose, POC 96 65 - 199 mg/dL [facility] Comment: Supplemental ranges: <140 mg/dL before meals <180 mg/dL all other times of the day Blood 08/28/2022 4:59 AM EDT 08/28/2022 4:59 AM EDT Milagros Hernandez MD POINT OF CARE TEST O RDERABLES Performing Organization Address City/[facility]/ZIP Co de Phone Number [facility] [place] [address] * POCT Glucose (08/28/2022 12:08 AM EDT) Glucose, POC 91 65 - 199 mg/dL [facility] Comment: Supplemental ranges: <140 mg/dL before meals <180 mg/dL all other times of the day Blood 08/28/2022 12:0 8 AM EDT 08/28/2022 12:08 AM EDT Milagros Hernandez MD POINT OF CARE TEST O RDERABLES Performing Organization Address City/[facility] Co de Phone Number [facility] [place] [address] * POCT Glucose (08/27/2022 9:50 PM EDT) Glucose, POC 140 65 - 199 mg/dL [facility] Comment: Supplemental ranges: <140 mg/dL before meals <180 mg/dL all other times of the day Blood 08/27/2022 9:50 PM EDT 08/27/2022 9:50 PM EDT Milagros Hernandez MD POINT OF CARE TEST O GABRIELLA Performing Organization Address [facility] Co de Phone Number [facility] [place] [address] * Potassium (08/27/2022 6:00 PM EDT) Potassium 4.0 3.5 - 5.0 mmol/L [facility] Comment: Please note: ??Patients with WBC [...] Pascal MD CHEMISTRY ORDERABLES Performing Organization Address [facility] Co de Phone Number [facility] [place] [address] * POCT Glucose (08/27/2022 4:55 PM EDT) Glucose, POC 149 65 - 199 mg/dL [facility] Comment: Supplemental ranges: <140 mg/dL before meals <180 mg/dL all other times of the day Blood 08/27/2022 4:55 PM EDT 08/27/2022 4:55 PM EDT Milagros Hernandez MD POINT OF CARE TEST O GABRIELLA Performing Organization Address City/[facility] Co de Phone Number [facility] [place] [address] * Potassium (08/27/2022 1:55 PM EDT) Potassium 4.3 3.5 - 5.0 mmol/L [facility] Comment: Please note: ??Patients with WBC [...] Pascal MD CHEMISTRY ORDERABLES Performing Organization Address [facility] Co de Phone Number [facility] [place] [address] * POCT Glucose (08/27/2022 11:32 AM EDT) Glucose, POC 141 65 - 199 mg/dL [facility] Comment: Supplemental ranges: <140 mg/dL before meals <180 mg/dL all other times of the day Blood 08/27/2022 11:3 2 AM EDT 08/27/2022 11:32 AM EDT Milagros Hernandez MD POINT OF CARE TEST O GABRIELLA Performing Organization Address [facility] Co de Phone Number [facility] [place] [address] * Potassium (08/27/2022 9:50 AM EDT) Potassium 4.4 3.5 - 5.0 mmol/L [facility] Comment: Please note: ??Patients with WBC >100,000 may have falsely elevated Potassium levels. ??For accurate Potassium quantification in these patients send serum separator tube (gold top) for subsequent determinations. ??Contact the Clinical Chemistry Laboratory if there are any questions. Blood 08/27/2022 9:50 AM EDT 08/27/2022 10:05 AM EDT Narrative Resulting Agency Comment Spec In Lab Richard Pascal MD CHEMISTRY ORDERABLES [facility] [place] [address] * CT Chest wo Contrast (Generic) (08/27/2022 [...] who have questions please contact the health animal care taker that requested your imaging first. ? Narrative [...] patients who have questions please contactthe health animal care taker that requested your imaging first. Electronically signed by: MINH QUIROGA MD, [facility]([phone]), at 08/27/2022 10:48 AM Milagros Hernandez MD [...] who have questions please contact the health animal care taker that requested your imaging first. ? Electronically signed by: Arlette Mays MD, [facility] ([phone]), at 08/27/2022 11:39 AM Narrative 08/27/2022 11:39 [...] patients who have questions please contactthe health animal care taker that requested your imaging first. Electronically signed by: Arlette Mays MD, [facility] ([phone]), at 08/27/2022 11:39 AM Milagros Hernandez MD IMG CT ORDERABLES * POCT Glucose (08/27/2022 7:38 AM EDT) Pathologist [facility] [place] Glucose, POC 114 65 - 199 mg/dL [facility] Comment: Supplemental ranges: <140 mg/dL before meals <180 mg/dL all other times of the day Blood 08/27/2022 7:38 AM EDT 08/27/2022 7:38 AM EDT Milagros Hernandez MD POINT OF CARE TEST O RDERABLES [facility] [place] [address] * (ABNORMAL) Differential, Automated (08/27/2022 5:40 AM EDT) [facility] Neutrophil % 69.4 % [facility] Neutrophil Absolute 6.61(H) 1.70 - 6.10 x10(3)/mc [facility] Lymph % 18.6 % [facility] Lymphocytes Abs 1.8 0.9 - 3.2 x10(3)/[facility] Monocyte % 7.7 % [facility] Monocyte Abs 0.7 0.3 - 0.9 x10(3)/mc [facility] Eos % 3.2 % [facility] Eosinophils Abs 0.3 0.0 - 0.4 x10(3)/mc L [facility] Basophil % 0.7 % [facility] Baso Absolute 0.1 0.0 - 0.1 x10(3)/mc L [facility] Immature Gran % 0.40 % [facility] Comment: Immature granulocytes(IG's)percentage and absolute count will include metamyelocytes, myelocytes, and promyelocytes. Blood smears from CBCs yielding IG's will be scanned manually for concordance. If this scan disagrees with the automated IG or if promyelocytes are noted, a manual differential will be performed. Immature Gran Absolute 0.04 0.00 - 0.04 x10(3)/mc L [facility] Blood 08/27/2022 5:40 AM EDT 08/27/2022 5:44 AM EDT Narrative Resulting Agency Comment Spec In Lab Tyler Cobb MD HEMATOLOGY ORDERABLE S [facility] [place] [address] * (ABNORMAL) Hemogram (08/27/2022 5:40 AM EDT) White Blood Cell 9.5 4.0 - 9.5 x10(3)/[facility] Red Blood Cell 3.92(L) 4.00 - 5.21 x10(6)/[facility] Comment:Dimorphic RBC popula tion. Hemoglobin 8.6(L) 11.7 - 15.5 g/dL [facility] Hematocrit 27.7(L) 35.7 - 45.8 % [facility] Mean Cell Volume 70.7(L) 82.6 - 94.4 fL [facility] Mean Cell Hemoglobin 21.9(L) 27.1 - 32.0 pg [facility] Mean Cell Hemoglobin Concentration 31.0(L) 31.7 - 35.0 g/dL [facility] Platelet 528(H) 145 - 357 x10(3)/ L [facility] RDW Standard Deviation Not Measured 37.0 - 46.0 fL [facility] RDW coefficient of variation Not Measured 11.5 - 14.1 % [facility] Mean Platelet Volume 9.7 7.6 - 12.9 fL [facility] NRBC% auto 0.0 % [facility] NRBC Absolute 0.000 0.000 - 0.000 x10(3)/ L [facility] Blood 08/27/2022 5:40 AM EDT 08/27/2022 5:44 AM EDT Narrative Resulting Agency Comment Spec In Lab Tyler Cobb MD HEMATOLOGY ORDERABLE S [facility] [place] [address] * Phosphorus (08/27/2022 5:40 AM EDT) Phosphorus 3.7 2.5 - 4.5 mg/dL [facility] Blood 08/27/2022 5:40 AM EDT 08/27/2022 5:44 AM EDT Narrative Resulting Agency Comment Spec In Lab Richard Pascal MD CHEMISTRY ORDERABLES Performing Organization Address City/[facility] Co de Phone Number [facility] [place] [address] * Magnesium (08/27/2022 5:40 AM EDT) Magnesium 0.85 0.69 - 1.07 mmol/L [facility] Blood 08/27/2022 5:40 AM EDT 08/27/2022 5:44 AM EDT Narrative Resulting Agency Comment Spec In Lab Richard Pascal MD CHEMISTRY ORDERABLES Performing Organization Address [facility] Co de Phone Number [facility] [place] [address] * (ABNORMAL) Basic Metabolic Panel (non-fasting) (08/27/2022 5:40 AM EDT) Glucose 130 65 - 199 mg/dL [facility] Comment:Diabetes: >=200 mg/d L plus symptoms Blood Urea Nitrogen 15 8 - 18 mg/dL [facility] Creatinine 0.44(L) 0.70 - 1.20 mg/dL [facility] Sodium 139 135 - 145 mmol/L [facility] Potassium 4.4 3.5 - 5.0 mmol/L [facility] Comment: Please note: ??Patients with WBC >100,000 may have falsely elevated Potassium levels. ??For accurate Potassium quantification in these patients send serum separator tube (gold top) for subsequent determinations. ??Contact the Clinical Chemistry Laboratory if there are any questions. Chloride 106 98 - 107 mmol/L [facility] Carbon Dioxide 27 22 - 31 mmol/L [facility] Anion Gap 6 5 - 15 mmol/L [facility] Calcium 9.3 8.5 - 10.5 mg/dL [facility] Est Glomerular Filtration Rate 109 >=60 mL/min/1. 73 m?? [facility] Comment: This patient's estimated GFR was [...] Pascal MD CHEMISTRY ORDERABLES Performing Organization Address [facility]/ZIP Co de Phone Number [facility] [place] [address] * POCT Glucose (08/27/2022 5:19 AM EDT) Glucose, POC 124 65 - 199 mg/dL [facility] Comment: Supplemental ranges: <140 mg/dL before meals <180 mg/dL all other times of the day Blood 08/27/2022 5:19 AM EDT 08/27/2022 5:19 AM EDT Milagros Hernandez MD POINT OF CARE TEST O RDERABLES [facility] [place] [address] * POCT Glucose (08/26/2022 11:27 PM EDT) Glucose, POC 162 65 - 199 mg/dL [facility] Comment: Supplemental ranges: <140 mg/dL before meals <180 mg/dL all other times of the day Blood 08/26/2022 11:2 7 PM EDT 08/26/2022 11:27 PM EDT Milagros Hernandez MD POINT OF CARE TEST O RDERAREYMUNDO Performing Organization Address City/[facility] Co de Phone Number [facility] [place] [address] * POCT Glucose (08/26/2022 8:05 PM EDT) Glucose, POC 138 65 - 199 mg/dL [facility] Comment: Supplemental ranges: <140 mg/dL before meals <180 mg/dL all other times of the day Blood 08/26/2022 8:05 PM EDT 08/26/2022 8:05 PM EDT Milagros Hernandez MD POINT OF CARE TEST O GABRIELLA Performing Organization Address [facility] Co de Phone Number [facility] [place] [address] * POCT Glucose (08/26/2022 4:51 PM EDT) Glucose, POC 111 65 - 199 mg/dL [facility] Comment: Supplemental ranges: <140 mg/dL before meals <180 mg/dL all other times of the day Blood 08/26/2022 4:51 PM EDT 08/26/2022 4:51 PM EDT Milagros Hernandez MD POINT OF CARE TEST O GABRIELLA Performing Organization Address City/[facility] Co de Phone Number [facility] [place] [address] * POCT Glucose (08/26/2022 1:13 PM EDT) Glucose, POC 151 65 - 199 mg/dL [facility] Comment: Supplemental ranges: <140 mg/dL before meals <180 mg/dL all other times of the day Blood 08/26/2022 1:13 PM EDT 08/26/2022 1:13 PM EDT Milagros Hernandez MD POINT OF CARE TEST O RDERABLES Performing Organization Address City/[facility]/ZIP Co de Phone Number [facility] [place] [address] * POCT Glucose (08/26/2022 11:28 AM EDT) Glucose, POC 130 65 - 199 mg/dL [facility] Comment: Supplemental ranges: <140 mg/dL before meals <180 mg/dL all other times of the day Blood 08/26/2022 11:2 8 AM EDT 08/26/2022 11:28 AM EDT Milagros Hernandez MD POINT OF CARE TEST O RDAV Performing Organization Address [facility] Co de Phone Number [facility] [place] [address] * (ABNORMAL) POCT Glucose (08/26/2022 7:58 AM EDT) Glucose, POC 202(H) 65 - 199 mg/dL [facility] Comment: Supplemental ranges: <140 mg/dL before meals <180 mg/dL all other times of the day Blood 08/26/2022 7:58 AM EDT 08/26/2022 7:58 AM EDT Milagros Hernandez MD POINT OF CARE TEST O RDERABLES Performing Organization Address [facility] Co de Phone Number [facility] [place] [address] * POCT Glucose (08/26/2022 4:42 AM EDT) Glucose, POC 160 65 - 199 mg/dL [facility] Comment: Supplemental ranges: <140 mg/dL before meals <180 mg/dL all other times of the day Blood 08/26/2022 4:42 AM EDT 08/26/2022 4:42 AM EDT Milagros Hernandez MD POINT OF CARE TEST O RDERABLES Performing Organization Address City/[facility]/ZIP Co de Phone Number [facility] [place] [address] * (ABNORMAL) Differential, Automated (08/26/2022 12:22 AM EDT) Neutrophil % 67.5 % [facility] Neutrophil Absolute 6.01 1.70 - 6.10 x10(3)/mc L [facility] Lymph % 18.8 % [facility] Lymphocytes Abs 1.7 0.9 - 3.2 x10(3)/ L [facility] Monocyte % 8.9 % [facility] Monocyte Abs 0.8 0.3 - 0.9 x10(3)/[facility] Eos % 3.3 % [facility] Eosinophils Abs 0.3 0.0 - 0.4 x10(3)/[facility] Basophil % 0.7 % [facility] Baso Absolute 0.1 0.0 - 0.1 x10(3)/[facility] Immature Gran % 0.80 % [facility] Comment: Immature granulocytes(IG's)percentage and absolute count will include metamyelocytes, myelocytes, and promyelocytes. Blood smears from CBCs yielding IG's will be scanned manually for concordance. If this scan disagrees with the automated IG or if promyelocytes are noted, a manual differential will be performed. Immature Gran Absolute 0.07(H) 0.00 - 0.04 x10(3)/[facility] Blood 08/26/2022 12:2 2 AM EDT 08/26/2022 12:30 AM EDT Narrative Resulting Agency Comment Spec In Lab Tyler Cobb MD HEMATOLOGY ORDERABLE S [facility] [place] [address] * (ABNORMAL) Hemogram (08/26/2022 12:22 AM EDT) White Blood Cell 8.9 4.0 - 9.5 x10(3)/ L [facility] Red Blood Cell 3.80(L) 4.00 - 5.21 x10(6)/mc L [facility] Comment:Dimorphic RBC popula tion. Hemoglobin 8.3(L) 11.7 - 15.5 g/dL [facility] Hematocrit 26.6(L) 35.7 - 45.8 % [facility] Mean Cell Volume 70.0(L) 82.6 - 94.4 fL [facility] Mean Cell Hemoglobin 21.8(L) 27.1 - 32.0 pg [facility] Mean Cell Hemoglobin Concentration 31.2(L) 31.7 - 35.0 g/dL [facility] Platelet 456(H) 145 - 357 x10(3)/mc L [facility] RDW Standard Deviation Not Measured 37.0 - 46.0 fL [facility] RDW coefficient of variation Not Measured 11.5 - 14.1 % [facility] Mean Platelet Volume 9.9 7.6 - 12.9 fL [facility] NRBC% auto 0.0 % [facility] NRBC Absolute 0.000 0.000 - 0.000 x10(3)/mc L [facility] Blood 08/26/2022 12:2 2 AM EDT 08/26/2022 12:30 AM EDT Narrative Resulting Agency Comment Spec In Lab Tyler Cobb MD HEMATOLOGY ORDERABLE S [facility] [place] [address] * (ABNORMAL) Basic Metabolic Panel (non-fasting) (08/26/2022 12:22 AM EDT) Glucose 195 65 - 199 mg/dL [facility] Comment:Diabetes: >=200 mg/d L plus symptoms Blood Urea Nitrogen 12 8 - 18 mg/dL [facility] Creatinine 0.38(L) 0.70 - 1.20 mg/dL [facility] Sodium 137 135 - 145 mmol/L [facility] Potassium 4.0 3.5 - 5.0 mmol/L [facility] Comment: Please note: ??Patients with WBC >100,000 may have falsely elevated Potassium levels. ??For accurate Potassium quantification in these patients send serum separator tube (gold top) for subsequent determinations. ??Contact the Clinical Chemistry Laboratory if there are any questions. Chloride 105 98 - 107 mmol/L [facility] Carbon Dioxide 25 22 - 31 mmol/L [facility] Anion Gap 7 5 - 15 mmol/L [facility] Calcium 9.0 8.5 - 10.5 mg/dL [facility] Est Glomerular Filtration Rate 113 >=60 mL/min/1. 73 m?? [facility] Comment: This patient's estimated GFR was [...] In Lab Richard Pascal MD CHEMISTRY ORDERABLES [facility] [place] [address] * Phosphorus (08/26/2022 12:22 AM EDT) Phosphorus 2.8 2.5 - 4.5 mg/dL [facility] Blood 08/26/2022 12:2 2 AM EDT 08/26/2022 12:30 AM EDT Narrative Resulting Agency Comment Spec In Lab Richard Pascal MD CHEMISTRY ORDERABLES [facility] [place] [address] * Magnesium (08/26/2022 12:22 AM EDT) Magnesium 0.76 0.69 - 1.07 mmol/L [facility] Blood 08/26/2022 12:2 2 AM EDT 08/26/2022 12:30 AM EDT Narrative Resulting Agency Comment Spec In Lab Richard Pascal MD CHEMISTRY ORDERABLES Performing Organization Address City/[facility]/ZIP Co de Phone Number [facility] [place] [address] * POCT Glucose (08/26/2022 12:19 AM EDT) Glucose, POC 188 65 - 199 mg/dL [facility] Comment: Supplemental ranges: <140 mg/dL before meals <180 mg/dL all other times of the day Blood 08/26/2022 12:1 9 AM EDT 08/26/2022 12:19 AM EDT Milagros Hernandez MD POINT OF CARE TEST O RDAV Performing Organization Address [facility] Co de Phone Number [facility] [place] [address] * POCT Glucose (08/25/2022 7:47 PM EDT) Glucose, POC 182 65 - 199 mg/dL [facility] Comment: Supplemental ranges: <140 mg/dL before meals <180 mg/dL all other times of the day Blood 08/25/2022 7:47 PM EDT 08/25/2022 7:47 PM EDT Milagros Hernandez MD POINT OF CARE TEST O GABRIELLA Performing Organization Address City/[facility] Co de Phone Number [facility] [place] [address] * POCT Glucose (08/25/2022 4:31 PM EDT) Glucose, POC 156 65 - 199 mg/dL [facility] Comment: Supplemental ranges: <140 mg/dL before meals <180 mg/dL all other times of the day Blood 08/25/2022 4:31 PM EDT 08/25/2022 4:31 PM EDT Milagros Hernandez MD POINT OF CARE TEST O RDERABLES [facility] [place] [address] * POCT Glucose (08/25/2022 3:08 PM EDT) Glucose, POC 113 65 - 199 mg/dL [facility] Comment: Supplemental ranges: <140 mg/dL before meals <180 mg/dL all other times of the day Blood 08/25/2022 3:08 PM EDT 08/25/2022 3:08 PM EDT Milagros Hernandez MD POINT OF CARE TEST O RDERABLES Performing Organization Address City/[facility]/ZIP Co de Phone Number [facility] [place] [address] * POCT Glucose (08/25/2022 2:09 PM EDT) Glucose, POC 146 65 - 199 mg/dL [facility] Comment: Supplemental ranges: <140 mg/dL before meals <180 mg/dL all other times of the day Blood 08/25/2022 2:09 PM EDT 08/25/2022 2:09 PM EDT Milagros Hernandez MD POINT OF CARE TEST O RDERABLES Performing Organization Address City/[facility]/ZIP Co de Phone Number [facility] [place] [address] * POCT Glucose (08/25/2022 12:44 PM EDT) Glucose, POC 197 65 - 199 mg/dL [facility] Comment: Supplemental ranges: <140 mg/dL before meals <180 mg/dL all other times of the day Blood 08/25/2022 12:4 4 PM EDT 08/25/2022 12:44 PM EDT Milagros Hernandez MD POINT OF CARE TEST O RDERABLES [facility] [place] [address] * (ABNORMAL) POCT Glucose (08/25/2022 12:25 PM EDT) Glucose, POC 212(H) 65 - 199 mg/dL [facility] Comment: Supplemental ranges: <140 mg/dL before meals <180 mg/dL all other times of the day Blood 08/25/2022 12:2 5 PM EDT 08/25/2022 12:25 PM EDT Milagros Hernandez MD POINT OF CARE TEST O RDERABLES Performing Organization Address City/[facility] Co de Phone Number [facility] [place] [address] * Valproic Acid Level, Total (08/25/2022 11:28 AM EDT) Valproic Acid 21 mg/L [facility] Comment: Therapeutic Range: Anticonvulsant Therapy: ??50-100 mg/L Manic Episodes Associated with Bipolar Disorder: ??50-125 mg/L Blood 08/25/2022 11:2 8 AM EDT 08/25/2022 11:34 AM EDT Narrative Resulting Agency Comment Spec In Lab Milagros Hernandez MD CHEMISTRY ORDERABLES Performing Organization Address [facility] Co de Phone Number [facility] [place] [address] * POCT Glucose (08/25/2022 11:09 AM EDT) Glucose, POC 185 65 - 199 mg/dL [facility] Comment: Supplemental ranges: <140 mg/dL before meals <180 mg/dL all other times of the day Blood 08/25/2022 11:0 9 AM EDT 08/25/2022 11:09 AM EDT Milagros Hernandez MD POINT OF CARE TEST O RDERABLES Performing Organization Address City/[facility] Co de Phone Number [facility] [place] [address] * POCT Glucose (08/25/2022 9:52 AM EDT) Glucose, POC 162 65 - 199 mg/dL [facility] Comment: Supplemental ranges: <140 mg/dL before meals <180 mg/dL all other times of the day Blood 08/25/2022 9:52 AM EDT 08/25/2022 9:52 AM EDT Milargos Hernandez MD POINT OF CARE TEST O GABRIELLA Performing Organization Address City/[facility] Co de Phone Number [facility] [place] [address] * POCT Glucose (08/25/2022 8:59 AM EDT) Glucose, POC 137 65 - 199 mg/dL [facility] Comment: Supplemental ranges: <140 mg/dL before meals <180 mg/dL all other times of the day Blood 08/25/2022 8:59 AM EDT 08/25/2022 8:59 AM EDT Milagros Hernandez MD POINT OF CARE TEST O GABRIELLA Performing Organization Address [facility] Co de Phone Number [facility] [place] [address] * (ABNORMAL) POCT Glucose (08/25/2022 7:32 AM EDT) Glucose, POC 202(H) 65 - 199 mg/dL [facility] Comment: Supplemental ranges: <140 mg/dL before meals <180 mg/dL all other times of the day Blood 08/25/2022 7:32 AM EDT 08/25/2022 7:32 AM EDT Milagros Hernandez MD POINT OF CARE TEST O RDERAREYMUNDO Performing Organization Address City/[facility] Co de Phone Number [facility] [place] [address] * POCT Glucose (08/25/2022 5:50 AM EDT) Glucose, POC 169 65 - 199 mg/dL [facility] Comment: Supplemental ranges: <140 mg/dL before meals <180 mg/dL all other times of the day Blood 08/25/2022 5:50 AM EDT 08/25/2022 5:50 AM EDT Milagros Hernandez MD POINT OF CARE TEST O RDERABLES Performing Organization Address City/[facility]/ZIP Co de Phone Number [facility] [place] [address] * POCT Glucose (08/25/2022 3:23 AM EDT) Glucose, POC 157 65 - 199 mg/dL [facility] Comment: Supplemental ranges: <140 mg/dL before meals <180 mg/dL all other times of the day Blood 08/25/2022 3:23 AM EDT 08/25/2022 3:23 AM EDT Milagros Hernandez MD POINT OF CARE TEST O RDERAREYMUNDO Performing Organization Address [facility] Co de Phone Number [facility] [place] [address] * POCT Glucose (08/25/2022 2:35 AM EDT) Glucose, POC 163 65 - 199 mg/dL [facility] Comment: Supplemental ranges: <140 mg/dL before meals <180 mg/dL all other times of the day Blood 08/25/2022 2:35 AM EDT 08/25/2022 2:35 AM EDT Milagros Hernandez MD POINT OF CARE TEST O RDERABLES Performing Organization Address City/[facility]/ZIP Co de Phone Number [facility] [place] [address] * Scan, Peripheral Blood (08/25/2022 1:14 AM EDT) Plat estimate Increased [facility] RBC Morphology Abnormal [facility] Macrocyte 1-5 /HPF [facility] Microcyte 6-10 /HPF [facility] Hypochromia Slight [facility] Polychromasia Present >5/HPF [facility] Ovalocytes 1-5 /HPF [facility] ITAL [facility] Target Cells 1-5 /HPF [facility] [place] Cells 1-5 /HPF [facility] Blood 08/25/2022 1:14 AM EDT 08/25/2022 1:14 AM EDT Narrative Resulting Agency Comment Spec In Lab Tyler Cobb MD HEMATOLOGY ORDERABLE S [facility] [place] [address] * (ABNORMAL) Differential, Automated (08/25/2022 1:14 AM EDT) Neutrophil % 72.4 % [facility] Neutrophil Absolute 8.27(H) 1.70 - 6.10 x10(3)/mc L [facility] Lymph % 15.6 % [facility] Lymphocytes Abs 1.8 0.9 - 3.2 x10(3)/mc L [facility] Monocyte % 8.5 % [facility] Monocyte Abs 1.0(H) 0.3 - 0.9 x10(3)/mc L [facility] Eos % 2.3 % [facility] Eosinophils Abs 0.3 0.0 - 0.4 x10(3)/mc L [facility] Basophil % 0.4 % [facility] Baso Absolute 0.0 0.0 - 0.1 x10(3)/mc L [facility] Immature Gran % 0.80 % [facility] Comment: Immature granulocytes(IG's)percentage and absolute count will include metamyelocytes, myelocytes, and promyelocytes. Blood smears from CBCs yielding IG's will be scanned manually for concordance. If this scan disagrees with the automated IG or if promyelocytes are noted, a manual differential will be performed. Immature Gran Absolute 0.09(H) 0.00 - 0.04 x10(3)/mc L [facility] Blood 08/25/2022 1:14 AM EDT 08/25/2022 1:14 AM EDT Narrative Resulting Agency Comment Spec In Lab Tyler Cobb MD HEMATOLOGY ORDERABLE S [facility] [place] [address] * (ABNORMAL) Hemogram (08/25/2022 1:14 AM EDT) White Blood Cell 11.4(H) 4.0 - 9.5 x10(3)/mc L [facility] Red Blood Cell 4.00 4.00 - 5.21 x10(6)/mc L [facility] Comment:Dimorphic RBC popula tion. Hemoglobin 8.6(L) 11.7 - 15.5 g/dL [facility] Hematocrit 27.9(L) 35.7 - 45.8 % [facility] Mean Cell Volume 69.8(L) 82.6 - 94.4 fL [facility] Mean Cell Hemoglobin 21.5(L) 27.1 - 32.0 pg [facility] Mean Cell Hemoglobin Concentration 30.8(L) 31.7 - 35.0 g/dL [facility] Platelet 501(H) 145 - 357 x10(3)/mc L [facility] RDW Standard Deviation Not Measured 37.0 - 46.0 fL [facility] RDW coefficient of variation Not Measured 11.5 - 14.1 % [facility] Mean Platelet Volume 9.8 7.6 - 12.9 fL [facility] NRBC% auto 0.0 % [facility] NRBC Absolute 0.000 0.000 - 0.000 x10(3)/mc L [facility] Blood 08/25/2022 1:14 AM EDT 08/25/2022 1:14 AM EDT Narrative Resulting Agency Comment Spec In Lab Tyler Cobb MD HEMATOLOGY ORDERABLE S [facility] [place] [address] * (ABNORMAL) Basic Metabolic Panel (non-fasting) (08/25/2022 1:14 AM EDT) Glucose 186 65 - 199 mg/dL [facility] Comment:Diabetes: >=200 mg/d L plus symptoms Blood Urea Nitrogen 15 8 - 18 mg/dL [facility] Creatinine 0.38(L) 0.70 - 1.20 mg/dL [facility] Sodium 138 135 - 145 mmol/L [facility] Potassium 4.1 3.5 - 5.0 mmol/L [facility] Comment: Please note: ??Patients with WBC >100,000 may have falsely elevated Potassium levels. ??For accurate Potassium quantification in these patients send serum separator tube (gold top) for subsequent determinations. ??Contact the Clinical Chemistry Laboratory if there are any questions. Chloride 106 98 - 107 mmol/L [facility] Carbon Dioxide 24 22 - 31 mmol/L [facility] Anion Gap 8 5 - 15 mmol/L [facility] Calcium 8.6 8.5 - 10.5 mg/dL [facility] Est Glomerular Filtration Rate 113 >=60 mL/min/1. 73 m?? [facility] Comment: This patient's estimated GFR was [...] In Lab Richard Pascal MD CHEMISTRY ORDERABLES [facility] [place] [address] * (ABNORMAL) Phosphorus (08/25/2022 1:14 AM EDT) Phosphorus 2.3(L) 2.5 - 4.5 mg/dL [facility] Blood 08/25/2022 1:14 AM EDT 08/25/2022 1:14 AM EDT Narrative Resulting Agency Comment Spec In Lab Richard Pascal MD CHEMISTRY ORDERABLES Performing Organization Address [facility] de Phone Number [facility] [place] [address] * Magnesium (08/25/2022 1:14 AM EDT) Magnesium 0.82 0.69 - 1.07 mmol/L [facility] Blood 08/25/2022 1:14 AM EDT 08/25/2022 1:14 AM EDT Narrative Resulting Agency Comment Spec In Lab Richard Pascal MD CHEMISTRY ORDERABLES Performing Organization Address [facility] de Phone Number [facility] [place] [address] * POCT Glucose (08/25/2022 1:00 AM EDT) Glucose, POC 186 65 - 199 mg/dL [facility] Comment: Supplemental ranges: <140 mg/dL before meals <180 mg/dL all other times of the day Blood 08/25/2022 1:00 AM EDT 08/25/2022 1:00 AM EDT Milagros Hernandez MD POINT OF CARE TEST O RDERAREYMUNDO Performing Organization Address [facility] de Phone Number [facility] [place] [address] * POCT Glucose (08/24/2022 11:26 PM EDT) Glucose, POC 198 65 - 199 mg/dL [facility] Comment: Supplemental ranges: <140 mg/dL before meals <180 mg/dL all other times of the day Blood 08/24/2022 11:2 6 PM EDT 08/24/2022 11:26 PM EDT Milagros Hernandez MD POINT OF CARE TEST O RDERABLES [facility] [place] [address] * POCT Glucose (08/24/2022 10:16 PM EDT) Glucose, POC 188 65 - 199 mg/dL [facility] Comment: Supplemental ranges: <140 mg/dL before meals <180 mg/dL all other times of the day Blood 08/24/2022 10:1 6 PM EDT 08/24/2022 10:16 PM EDT Milagros Hernandez MD POINT OF CARE TEST O RDERABLES Performing Organization Address City/[facility]/ZIP Co de Phone Number [facility] [place] [address] * POCT Glucose (08/24/2022 9:20 PM EDT) Glucose, POC 195 65 - 199 mg/dL [facility] Comment: Supplemental ranges: <140 mg/dL before meals <180 mg/dL all other times of the day Blood 08/24/2022 9:20 PM EDT 08/24/2022 9:20 PM EDT Milagros Hernandez MD POINT OF CARE TEST O RDERABLES Performing Organization Address City/[facility]/ZIP Co de Phone Number [facility] [place] [address] * POCT Glucose (08/24/2022 7:41 PM EDT) Glucose, POC 185 65 - 199 mg/dL [facility] Comment: Supplemental ranges: <140 mg/dL before meals <180 mg/dL all other times of the day Blood 08/24/2022 7:41 PM EDT 08/24/2022 7:41 PM EDT Milagros Hernandez MD POINT OF CARE TEST O RDERABLES [facility] [place] [address] * POCT Glucose (08/24/2022 6:38 PM EDT) Glucose, POC 136 65 - 199 mg/dL [facility] Comment: Supplemental ranges: <140 mg/dL before meals <180 mg/dL all other times of the day Blood 08/24/2022 6:38 PM EDT 08/24/2022 6:38 PM EDT Milagros Hernandez MD POINT OF CARE TEST O GABRIELLA [facility] [place] [address] * POCT Glucose (08/24/2022 6:00 PM EDT) Glucose, POC 131 65 - 199 mg/dL [facility] Comment: Supplemental ranges: <140 mg/dL before meals <180 mg/dL all other times of the day Blood 08/24/2022 6:00 PM EDT 08/24/2022 6:00 PM EDT Milagros Hernandez MD POINT OF CARE TEST O GABRIELLA Performing Organization Address City/[facility] Co de Phone Number [facility] [place] [address] * POCT Glucose (08/24/2022 4:21 PM EDT) Glucose, POC 147 65 - 199 mg/dL [facility] Comment: Supplemental ranges: <140 mg/dL before meals <180 mg/dL all other times of the day Blood 08/24/2022 4:21 PM EDT 08/24/2022 4:21 PM EDT Milagros Hernandez MD POINT OF CARE TEST O GABRIELLA Performing Organization Address City/[facility] Co de Phone Number [facility] [place] [address] * POCT Glucose (08/24/2022 3:14 PM EDT) Glucose, POC 160 65 - 199 mg/dL [facility] Comment: Supplemental ranges: <140 mg/dL before meals <180 mg/dL all other times of the day Blood 08/24/2022 3:14 PM EDT 08/24/2022 3:14 PM EDT Milagros Hernandez MD POINT OF CARE TEST O GABRIELLA Performing Organization Address City/[facility]/ZIP Co de Phone Number [facility] [place] [address] * Potassium (08/24/2022 2:21 PM EDT) Potassium 4.4 3.5 - 5.0 mmol/L [facility] Comment: Please note: ??Patients with WBC [...] Pascal MD CHEMISTRY ORDERABLES Performing Organization Address [facility] Co de Phone Number [facility] [place] [address] * POCT Glucose (08/24/2022 2:16 PM EDT) Glucose, POC 168 65 - 199 mg/dL [facility] Comment: Supplemental ranges: <140 mg/dL before meals <180 mg/dL all other times of the day Blood 08/24/2022 2:16 PM EDT 08/24/2022 2:16 PM EDT Milagros Hernandez MD POINT OF CARE TEST O GABRIELLA Performing Organization Address City/[facility] Co de Phone Number [facility] [place] [address] * POCT Glucose (08/24/2022 1:10 PM EDT) Glucose, POC 166 65 - 199 mg/dL [facility] Comment: Supplemental ranges: <140 mg/dL before meals <180 mg/dL all other times of the day Blood 08/24/2022 1:10 PM EDT 08/24/2022 1:10 PM EDT Milagros Hernandez MD POINT OF CARE TEST O RDERAREYMUNDO Performing Organization Address City/[facility]/ZIP Co de Phone Number [facility] [place] [address] * POCT Glucose (08/24/2022 12:12 PM EDT) Glucose, POC 185 65 - 199 mg/dL [facility] Comment: Supplemental ranges: <140 mg/dL before meals <180 mg/dL all other times of the day Blood 08/24/2022 12:1 2 PM EDT 08/24/2022 12:12 PM EDT Milagros Hernandez MD POINT OF CARE TEST O GABRIELLA Performing Organization Address [facility] Co de Phone Number [facility] [place] [address] * (ABNORMAL) Vitamin D, 25-Hydroxy (08/24/2022 11:29 AM EDT) Vitamin D Total 25 OH 12(L) 21 - 100 ng/mL [facility] Vit D Interp Deficient [facility] Blood 08/24/2022 11:2 9 AM EDT 08/24/2022 11:49 AM EDT Narrative Resulting Agency Comment Spec In Lab Dixie Tadeo MD CHEMISTRY ORDERABLES Performing Organization Address City/[facility]/ZIP Co de Phone Number [facility] [place] [address] * PTH (08/24/2022 11:29 AM EDT) Parathyroid Hormone 60 15 - 65 pg/mL [facility] Blood 08/24/2022 11:2 9 AM EDT 08/24/2022 11:49 AM EDT Narrative Resulting Agency Comment Spec In Lab Dixie Tadeo MD CHEMISTRY ORDERABLES Performing Organization Address [facility]/ZIP Co de Phone Number [facility] [place] [address] * POCT Glucose (08/24/2022 11:22 AM EDT) Glucose, POC 183 65 - 199 mg/dL [facility] Comment: Supplemental ranges: <140 mg/dL before meals <180 mg/dL all other times of the day Blood 08/24/2022 11:2 2 AM EDT 08/24/2022 11:22 AM EDT Milagros Hernandez MD POINT OF CARE TEST O RDERABLES Performing Organization Address [facility] Co de Phone Number [facility] [place] [address] * POCT Glucose (08/24/2022 10:27 AM EDT) Glucose, POC 193 65 - 199 mg/dL [facility] Comment: Supplemental ranges: <140 mg/dL before meals <180 mg/dL all other times of the day Blood 08/24/2022 10:2 7 AM EDT 08/24/2022 10:27 AM EDT Milagros Hernandez MD POINT OF CARE TEST O RDERAREYMUNDO Performing Organization Address [facility] Co de Phone Number [facility] [place] [address] * POCT Glucose (08/24/2022 9:12 AM EDT) Glucose, POC 171 65 - 199 mg/dL [facility] Comment: Supplemental ranges: <140 mg/dL before meals <180 mg/dL all other times of the day Blood 08/24/2022 9:12 AM EDT 08/24/2022 9:12 AM EDT Milagros Hernandez MD POINT OF CARE TEST O RDERABLES Performing Organization Address City/[facility]/ZIP Co de Phone Number [facility] [place] [address] * (ABNORMAL) POCT Glucose (08/24/2022 8:00 AM EDT) Glucose, POC 224(H) 65 - 199 mg/dL [facility] Comment: Supplemental ranges: <140 mg/dL before meals <180 mg/dL all other times of the day Blood 08/24/2022 8:00 AM EDT 08/24/2022 8:00 AM EDT Milagros Hernandez MD POINT OF CARE TEST O RDERABLES Performing Organization Address [facility] Co de Phone Number [facility] [place] [address] * POCT Glucose (08/24/2022 6:16 AM EDT) Glucose, POC 183 65 - 199 mg/dL [facility] Comment: Supplemental ranges: <140 mg/dL before meals <180 mg/dL all other times of the day Blood 08/24/2022 6:16 AM EDT 08/24/2022 6:16 AM EDT Milagros Hernandez MD POINT OF CARE TEST O RDERABLES Performing Organization Address [facility] Co de Phone Number [facility] [place] [address] * POCT Glucose (08/24/2022 4:49 AM EDT) Glucose, POC 145 65 - 199 mg/dL [facility] Comment: Supplemental ranges: <140 mg/dL before meals <180 mg/dL all other times of the day Blood 08/24/2022 4:49 AM EDT 08/24/2022 4:49 AM EDT Milagros Hernandez MD POINT OF CARE TEST O RDERABLES Performing Organization Address City/[facility]/ZIP Co de Phone Number [facility] [place] [address] * POCT Glucose (08/24/2022 4:08 AM EDT) Pathologist [facility] Glucose, POC 135 65 - 199 mg/dL [facility] Comment: Supplemental ranges: <140 mg/dL before meals <180 mg/dL all other times of the day Blood 08/24/2022 4:08 AM EDT 08/24/2022 4:08 AM EDT Milagros Hernandez MD POINT OF CARE TEST O RDERABLES Performing Organization Address [facility] Co de Phone Number [facility] [place] [address] * Scan, Peripheral Blood (08/24/2022 1:53 AM EDT) [facility] Plat estimate Increased [facility] RBC Morphology Abnormal [facility] Microcyte 1-5 /HPF [facility] Hypochromia Slight [facility] Ovalocytes 1-5 /HPF [facility] [place] Cells 1-5 /HPF [facility] Platelet Clumps Present [facility] Blood 08/24/2022 1:53 AM EDT 08/24/2022 2:02 AM EDT Narrative Resulting Agency Comment Spec In Lab Tyler Cobb MD HEMATOLOGY ORDERABLE S Performing Organization Address [facility] Co de Phone Number [facility] [place] [address] * (ABNORMAL) Differential, Automated (08/24/2022 1:53 AM EDT) [facility] Neutrophil % 77.0 % [facility] Neutrophil Absolute 10.61(H) 1.70 - 6.10 x10(3)/mc L [facility] Lymph % 11.1 % [facility] Lymphocytes Abs 1.5 0.9 - 3.2 x10(3)/mc L [facility] Monocyte % 8.2 % [facility] Monocyte Abs 1.1(H) 0.3 - 0.9 x10(3)/mc L [facility] [facility] Eos % 2.2 % [facility] Eosinophils Abs 0.3 0.0 - 0.4 x10(3)/mc L [facility] Basophil % 0.4 % [facility] Baso Absolute 0.1 0.0 - 0.1 x10(3)/mc L [facility] Immature Gran % 1.10 % [facility] Comment: Immature granulocytes(IG's)percentage and absolute count will include metamyelocytes, myelocytes, and promyelocytes. Blood smears from CBCs yielding IG's will be scanned manually for concordance. If this scan disagrees with the automated IG or if promyelocytes are noted, a manual differential will be performed. Immature Gran Absolute 0.15(H) 0.00 - 0.04 x10(3)/ L [facility] Blood 08/24/2022 1:53 AM EDT 08/24/2022 2:02 AM EDT Narrative Resulting Agency Comment Spec In Lab Tyler Cobb MD HEMATOLOGY ORDERABLE S Performing Organization Address City/State/[facility] Co de Phone Number [facility] [place] [address] * (ABNORMAL) Hemogram (08/24/2022 1:53 AM EDT) White Blood Cell 13.8(H) 4.0 - 9.5 x10(3)/mc L [facility] Red Blood Cell 4.05 4.00 - 5.21 x10(6)/ L [facility] Hemoglobin 8.7(L) 11.7 - 15.5 g/dL [facility] Hematocrit 28.1(L) 35.7 - 45.8 % [facility] Mean Cell Volume 69.4(L) 82.6 - 94.4 fL [facility] Mean Cell Hemoglobin 21.5(L) 27.1 - 32.0 pg [facility] Mean Cell Hemoglobin Concentration 31.0(L) 31.7 - 35.0 g/dL [facility] Platelet 504(H) 145 - 357 x10(3)/mc L [facility] RDW Standard Deviation 71.8(H) 37.0 - 46.0 fL [facility] RDW coefficient of variation 31.0(H) 11.5 - 14.1 % [facility] Mean Platelet Volume 9.7 7.6 - 12.9 fL [facility] NRBC% auto 0.1 % [facility] NRBC Absolute 0.020(H) 0.000 - 0.000 x10(3)/mc L [facility] Blood 08/24/2022 1:53 AM EDT 08/24/2022 2:02 AM EDT Narrative Resulting Agency Comment Spec In Lab Tyler Cobb MD HEMATOLOGY ORDERABLE S [facility] [place] [address] * (ABNORMAL) Basic Metabolic Panel (non-fasting) (08/24/2022 1:53 AM EDT) Glucose 155 65 - 199 mg/dL [facility] Comment:Diabetes: >=200 mg/d L plus symptoms Blood Urea Nitrogen 17 8 - 18 mg/dL [facility] Creatinine 0.45(L) 0.70 - 1.20 mg/dL [facility] Sodium 141 135 - 145 mmol/L [facility] Potassium 3.7 3.5 - 5.0 mmol/L [facility] Comment: Please note: ??Patients with WBC >100,000 may have falsely elevated Potassium levels. ??For accurate Potassium quantification in these patients send serum separator tube (gold top) for subsequent determinations. ??Contact the Clinical Chemistry Laboratory if there are any questions. Chloride 106 98 - 107 mmol/L [facility] Carbon Dioxide 27 22 - 31 mmol/L [facility] Anion Gap 8 5 - 15 mmol/L [facility] Calcium 8.6 8.5 - 10.5 mg/dL [facility] Est Glomerular Filtration Rate 109 >=60 mL/min/1. 73 m?? [facility] Comment: This patient's estimated GFR was [...] In Lab Richard Pascal MD CHEMISTRY ORDERABLES [facility] [place] [address] * (ABNORMAL) Phosphorus (08/24/2022 1:53 AM EDT) Phosphorus 2.3(L) 2.5 - 4.5 mg/dL [facility] Blood 08/24/2022 1:53 AM EDT 08/24/2022 2:02 AM EDT Narrative Resulting Agency Comment Spec In Lab Richard Pascal MD CHEMISTRY ORDERABLES Performing Organization Address City/[facility] Co de Phone Number [facility] [place] [address] * Magnesium (08/24/2022 1:53 AM EDT) Magnesium 0.90 0.69 - 1.07 mmol/L [facility] Blood 08/24/2022 1:53 AM EDT 08/24/2022 2:02 AM EDT Narrative Resulting Agency Comment Spec In Lab Richard Pascal MD CHEMISTRY ORDERABLES Performing Organization Address [facility] Co de Phone Number [facility] [place] [address] * POCT Glucose (08/24/2022 1:51 AM EDT) Glucose, POC 151 65 - 199 mg/dL [facility] Comment: Supplemental ranges: <140 mg/dL before meals <180 mg/dL all other times of the day Blood 08/24/2022 1:51 AM EDT 08/24/2022 1:51 AM EDT Milagros Hernandez MD POINT OF CARE TEST O RDERAREYMUNDO Performing Organization Address City/[facility] Co de Phone Number [facility] [place] [address] * POCT Glucose (08/24/2022 12:01 AM EDT) Glucose, POC 174 65 - 199 mg/dL [facility] Comment: Supplemental ranges: <140 mg/dL before meals <180 mg/dL all other times of the day Blood 08/24/2022 12:0 1 AM EDT 08/24/2022 12:01 AM EDT Milagros Hernandez MD POINT OF CARE TEST O GABRIELLA Performing Organization Address [facility] Co de Phone Number [facility] [place] [address] * POCT Glucose (08/23/2022 11:03 PM EDT) Glucose, POC 180 65 - 199 mg/dL [facility] Comment: Supplemental ranges: <140 mg/dL before meals <180 mg/dL all other times of the day Blood 08/23/2022 11:0 3 PM EDT 08/23/2022 11:03 PM EDT Milagros Hernandez MD POINT OF CARE TEST O RDERAREYMUNDO Performing Organization Address [facility] Co de Phone Number [facility] [place] [address] * (ABNORMAL) POCT Glucose (08/23/2022 9:10 PM EDT) Glucose, POC 200(H) 65 - 199 mg/dL [facility] Comment: Supplemental ranges: <140 mg/dL before meals <180 mg/dL all other times of the day Blood 08/23/2022 9:10 PM EDT 08/23/2022 9:10 PM EDT Milagros Hernandez MD POINT OF CARE TEST O HUGHERAREYMUNDO [facility] [place] [address] * POCT Glucose (08/23/2022 7:01 PM EDT) Glucose, POC 189 65 - 199 mg/dL [facility] Comment: Supplemental ranges: <140 mg/dL before meals <180 mg/dL all other times of the day Blood 08/23/2022 7:01 PM EDT 08/23/2022 7:01 PM EDT Milagros Hernandez MD POINT OF CARE TEST O HUGHERAREYMUNDO Performing Organization Address [facility] Co de Phone Number [facility] [place] [address] * POCT Glucose (08/23/2022 6:09 PM EDT) Glucose, POC 194 65 - 199 mg/dL [facility] Comment: Supplemental ranges: <140 mg/dL before meals <180 mg/dL all other times of the day Blood 08/23/2022 6:09 PM EDT 08/23/2022 6:09 PM EDT Milagros Hernandez MD POINT OF CARE TEST O GABRIELLA Performing Organization Address [facility] Co de Phone Number [facility] [place] [address] * (ABNORMAL) POCT Glucose (08/23/2022 4:26 PM EDT) Glucose, POC 214(H) 65 - 199 mg/dL [facility] Comment: Supplemental ranges: <140 mg/dL before meals <180 mg/dL all other times of the day Blood 08/23/2022 4:26 PM EDT 08/23/2022 4:26 PM EDT Milagros Hernandez MD POINT OF CARE TEST O GABRIELLA [facility] [place] [address] * POCT Glucose (08/23/2022 2:56 PM EDT) Glucose, POC 158 65 - 199 mg/dL [facility] Comment: Supplemental ranges: <140 mg/dL before meals <180 mg/dL all other times of the day Blood 08/23/2022 2:56 PM EDT 08/23/2022 2:56 PM EDT Milagros Hernandez MD POINT OF CARE TEST O RDERABLES [facility] [place] [address] * POCT Glucose (08/23/2022 1:32 PM EDT) Glucose, POC 166 65 - 199 mg/dL [facility] Comment: Supplemental ranges: <140 mg/dL before meals <180 mg/dL all other times of the day Blood 08/23/2022 1:32 PM EDT 08/23/2022 1:32 PM EDT Milagros Hernandez MD POINT OF CARE TEST O RDERABLES Performing Organization Address City/[facility]/ZIP Co de Phone Number [facility] [place] [address] * POCT Glucose (08/23/2022 12:06 PM EDT) Glucose, POC 171 65 - 199 mg/dL [facility] Comment: Supplemental ranges: <140 mg/dL before meals <180 mg/dL all other times of the day Blood 08/23/2022 12:0 6 PM EDT 08/23/2022 12:06 PM EDT Milagros Hernandez MD POINT OF CARE TEST O RDERABLES [facility] [place] [address] * POCT Glucose (08/23/2022 11:09 AM EDT) [facility] Glucose, POC 153 65 - 199 mg/dL [facility] Comment: Supplemental ranges: <140 mg/dL before meals <180 mg/dL all other times of the day Blood 08/23/2022 11:0 9 AM EDT 08/23/2022 11:09 AM EDT Milagros Hernandez MD POINT OF CARE TEST O RDERABLES Performing Organization Address [facility] Co de Phone Number [facility] [place] [address] * Scan, Peripheral Blood (08/23/2022 10:55 AM EDT) [facility] Plat estimate Increased [facility] RBC Morphology Abnormal [facility] Microcyte 1-5 /HPF [facility] Hypochromia Slight [facility] Ovalocytes 1-5 /HPF [facility] [place] Cells 1-5 /HPF [facility] Platelet Clumps Present [facility] Blood 08/23/2022 10:5 5 AM EDT 08/23/2022 11:03 AM EDT Narrative Resulting Agency Comment Spec In Lab Neva Tomlin MD HEMATOLOGY ORDERABLE S Performing Organization Address [facility] Co de Phone Number [facility] [place] [address] * (ABNORMAL) Differential, Automated (08/23/2022 10:55 AM EDT) [facility] Neutrophil % 81.2 % [facility] Neutrophil Absolute 13.28(H) 1.70 - 6.10 x10(3)/mc L [facility] Lymph % 8.6 % [facility] Lymphocytes Abs 1.4 0.9 - 3.2 x10(3)/mc L [facility] Monocyte % 7.0 % [facility] Monocyte Abs 1.2(H) 0.3 - 0.9 x10(3)/mc L [facility] Eos % 1.7 % [facility] Eosinophils Abs 0.3 0.0 - 0.4 x10(3)/mc L [facility] Basophil % 0.2 % [facility] Baso Absolute 0.0 0.0 - 0.1 x10(3)/mc L [facility] Immature Gran % 1.30 % [facility] Comment: Immature granulocytes(IG's)percentage and absolute count will include metamyelocytes, myelocytes, and promyelocytes. Blood smears from CBCs yielding IG's will be scanned manually for concordance. If this scan disagrees with the automated IG or if promyelocytes are noted, a manual differential will be performed. Immature Gran Absolute 0.22(H) 0.00 - 0.04 x10(3)/ L [facility] Blood 08/23/2022 10:5 5 AM EDT 08/23/2022 11:03 AM EDT Narrative Resulting Agency Comment Spec In Lab Neva Tomlin MD HEMATOLOGY ORDERABLE S Performing Organization Address City/State/[facility] Co de Phone Number [facility] [place] [address] * (ABNORMAL) Hemogram (08/23/2022 10:55 AM EDT) White Blood Cell 16.4(H) 4.0 - 9.5 x10(3)/ L [facility] Red Blood Cell 3.89(L) 4.00 - 5.21 x10(6)/ L [facility] Hemoglobin 8.6(L) 11.7 - 15.5 g/dL [facility] Hematocrit 27.2(L) 35.7 - 45.8 % [facility] Mean Cell Volume 69.9(L) 82.6 - 94.4 fL [facility] Mean Cell Hemoglobin 22.1(L) 27.1 - 32.0 pg [facility] Mean Cell Hemoglobin Concentration 31.6(L) 31.7 - 35.0 g/dL [facility] Platelet Not Measured 145 - 357 x10(3)/[facility] Comment: Platelet clumps present. Estimate appears Increased. If numerical platelet count is necessary send both a Sodium Citrate tube and an EDTA tube for future platelet count orders. RDW Standard Deviation Not Measured 37.0 - 46.0 fL [facility] RDW coefficient of variation Not Measured 11.5 - 14.1 % [facility] Mean Platelet Volume Not Measured 7.6 - 12.9 fL [facility] NRBC% auto 0.2 % [facility] NRBC Absolute 0.030(H) 0.000 - 0.000 x10(3)/mc L [facility] Blood 08/23/2022 10:5 5 AM EDT 08/23/2022 11:03 AM EDT Narrative Resulting Agency Comment Spec In Lab Neva Tomlin MD HEMATOLOGY ORDERABLE S [facility] [place] [address] * (ABNORMAL) POCT Glucose (08/23/2022 8:01 AM EDT) Glucose, POC 210(H) 65 - 199 mg/dL [facility] Comment: Supplemental ranges: <140 mg/dL before meals <180 mg/dL all other times of the day Blood 08/23/2022 8:01 AM EDT 08/23/2022 8:01 AM EDT Milagros Hernandez MD POINT OF CARE TEST O RDERABLES Performing Organization Address City/[facility]/ZIP Co de Phone Number [facility] [place] [address] * POCT Glucose (08/23/2022 4:22 AM EDT) Glucose, POC 173 65 - 199 mg/dL [facility] Comment: Supplemental ranges: <140 mg/dL before meals <180 mg/dL all other times of the day Blood 08/23/2022 4:22 AM EDT 08/23/2022 4:22 AM EDT Milagros Hernandez MD POINT OF CARE TEST O RDERABLES [facility] [place] [address] * POCT Glucose (08/23/2022 2:32 AM EDT) [facility] Glucose, POC 181 65 - 199 mg/dL [facility] Comment: Supplemental ranges: <140 mg/dL before meals <180 mg/dL all other times of the day Blood 08/23/2022 2:32 AM EDT 08/23/2022 2:32 AM EDT Milagros Hernandez MD POINT OF CARE TEST O RDERABLES Performing Organization Address [facility] Co de Phone Number [facility] [place] [address] * Scan, Peripheral Blood (08/23/2022 2:30 AM EDT) [facility] Plat estimate Increased [facility] RBC Morphology Abnormal [facility] Microcyte 1-5 /HPF [facility] Hypochromia Slight [facility] Ovalocytes 1-5 /HPF [facility] Target Cells 1-5 /HPF [facility] Platelet Clumps Present [facility] Blood 08/23/2022 2:30 AM EDT 08/23/2022 2:42 AM EDT Narrative Resulting Agency Comment Spec In Lab Tyler Cobb MD HEMATOLOGY ORDERABLE S Performing Organization Address [facility] de Phone Number [facility] [place] [address] * (ABNORMAL) Differential, Automated (08/23/2022 2:30 AM EDT) [facility] Neutrophil % 79.7 % [facility] Neutrophil Absolute 13.27(H) 1.70 - 6.10 x10(3)/mc L [facility] Lymph % 9.2 % [facility] Lymphocytes Abs 1.5 0.9 - 3.2 x10(3)/mc L [facility] Monocyte % 7.8 % [facility] Monocyte Abs 1.3(H) 0.3 - 0.9 x10(3)/mc L [facility] Eos % 1.6 % [facility] Eosinophils Abs 0.3 0.0 - 0.4 x10(3)/mc L [facility] Basophil % 0.2 % [facility] Baso Absolute 0.0 0.0 - 0.1 x10(3)/ L [facility] Immature Gran % 1.50 % [facility] Comment: Immature granulocytes(IG's)percentage and absolute count will include metamyelocytes, myelocytes, and promyelocytes. Blood smears from CBCs yielding IG's will be scanned manually for concordance. If this scan disagrees with the automated IG or if promyelocytes are noted, a manual differential will be performed. Immature Gran Absolute 0.25(H) 0.00 - 0.04 x10(3)/ L [facility] Blood 08/23/2022 2:30 AM EDT 08/23/2022 2:42 AM EDT Narrative Resulting Agency Comment Spec In Lab Tyler Cobb MD HEMATOLOGY ORDERABLE S [facility] [place] [address] * (ABNORMAL) Hemogram (08/23/2022 2:30 AM EDT) White Blood Cell 16.7(H) 4.0 - 9.5 x10(3)/ L [facility] Red Blood Cell 3.98(L) 4.00 - 5.21 x10(6)/ L [facility] Hemoglobin 8.7(L) 11.7 - 15.5 g/dL [facility] Hematocrit 27.6(L) 35.7 - 45.8 % [facility] Mean Cell Volume 69.3(L) 82.6 - 94.4 fL [facility] Mean Cell Hemoglobin 21.9(L) 27.1 - 32.0 pg [facility] Mean Cell Hemoglobin Concentration 31.5(L) 31.7 - 35.0 g/dL [facility] Platelet Not Measured 145 - 357 x10(3)/[facility] Comment: Platelet clumps present. Estimate appears Increased. If numerical platelet count is necessary send both a Sodium Citrate tube and an EDTA tube for future platelet count orders. RDW Standard Deviation Not Measured 37.0 - 46.0 fL [facility] RDW coefficient of variation Not Measured 11.5 - 14.1 % [facility] Mean Platelet Volume Not Measured 7.6 - 12.9 fL [facility] NRBC% auto 0.2 % [facility] NRBC Absolute 0.040(H) 0.000 - 0.000 x10(3)/mc L [facility] Blood 08/23/2022 2:30 AM EDT 08/23/2022 2:42 AM EDT Narrative Resulting Agency Comment Spec In Lab Tyler Cobb MD HEMATOLOGY ORDERABLE S [facility] [place] [address] * (ABNORMAL) Basic Metabolic Panel (non-fasting) (08/23/2022 2:30 AM EDT) Glucose 195 65 - 199 mg/dL [facility] Comment:Diabetes: >=200 mg/d L plus symptoms Blood Urea Nitrogen 16 8 - 18 mg/dL [facility] Creatinine 0.53(L) 0.70 - 1.20 mg/dL [facility] Sodium 142 135 - 145 mmol/L [facility] Potassium 4.2 3.5 - 5.0 mmol/L [facility] Comment: Please note: ??Patients with WBC >100,000 may have falsely elevated Potassium levels. ??For accurate Potassium quantification in these patients send serum separator tube (gold top) for subsequent determinations. ??Contact the Clinical Chemistry Laboratory if there are any questions. Chloride 107 98 - 107 mmol/L [facility] Carbon Dioxide 27 22 - 31 mmol/L [facility] Anion Gap 8 5 - 15 mmol/L [facility] Calcium 8.5 8.5 - 10.5 mg/dL [facility] Est Glomerular Filtration Rate 105 >=60 mL/min/1. 73 m?? [facility] Comment: This patient's estimated GFR was [...] Pascal MD CHEMISTRY ORDERABLES Performing Organization Address City/[facility]/ZIP Co de Phone Number [facility] [place] [address] * Phosphorus (08/23/2022 2:30 AM EDT) Phosphorus 2.8 2.5 - 4.5 mg/dL [facility] Blood 08/23/2022 2:30 AM EDT 08/23/2022 2:42 AM EDT Narrative Resulting Agency Comment Spec In Lab Richard Pascal MD CHEMISTRY ORDERABLES Performing Organization Address City/[facility] Co de Phone Number [facility] [place] [address] * Magnesium (08/23/2022 2:30 AM EDT) Magnesium 0.80 0.69 - 1.07 mmol/L [facility] Blood 08/23/2022 2:30 AM EDT 08/23/2022 2:42 AM EDT Narrative Resulting Agency Comment Spec In Lab Richard Pascal MD CHEMISTRY ORDERABLES Performing Organization Address City/[facility] Co de Phone Number [facility] [place] [address] * POCT Glucose (08/23/2022 1:11 AM EDT) Glucose, POC 137 65 - 199 mg/dL [facility] [facility] Comment: Supplemental ranges: <140 mg/dL before meals <180 mg/dL all other times of the day Blood 08/23/2022 1:11 AM EDT 08/23/2022 1:11 AM EDT Milagros Hernandez MD POINT OF CARE TEST O GABRIELLA Performing Organization Address City/[facility] Co de Phone Number [facility] [place] [address] * POCT Glucose (08/23/2022 12:28 AM EDT) Glucose, POC 136 65 - 199 mg/dL [facility] Comment: Supplemental ranges: <140 mg/dL before meals <180 mg/dL all other times of the day Blood 08/23/2022 12:2 8 AM EDT 08/23/2022 12:28 AM EDT Milagros Hernandez MD POINT OF CARE TEST O GABRIELLA Performing Organization Address [facility] Co de Phone Number [facility] [place] [address] * POCT Glucose (08/22/2022 10:15 PM EDT) Glucose, POC 194 65 - 199 mg/dL [facility] Comment: Supplemental ranges: <140 mg/dL before meals <180 mg/dL all other times of the day Blood 08/22/2022 10:1 5 PM EDT 08/22/2022 10:15 PM EDT Milagros Hernandez MD POINT OF CARE TEST O GABRIELLA Performing Organization Address [facility] Co de Phone Number [facility] [place] [address] * POCT Glucose (08/22/2022 9:11 PM EDT) Glucose, POC 162 65 - 199 mg/dL [facility] Comment: Supplemental ranges: <140 mg/dL before meals <180 mg/dL all other times of the day Blood 08/22/2022 9:11 PM EDT 08/22/2022 9:11 PM EDT Milagros Hernandez MD POINT OF CARE TEST O RDERABLES Performing Organization Address City/[facility] Co de Phone Number [facility] [place] [address] * POCT Glucose (08/22/2022 6:47 PM EDT) Glucose, POC 181 65 - 199 mg/dL [facility] Comment: Supplemental ranges: <140 mg/dL before meals <180 mg/dL all other times of the day Blood 08/22/2022 6:47 PM EDT 08/22/2022 6:47 PM EDT Milagros Hernandez MD POINT OF CARE TEST O RDERABLES Performing Organization Address [facility] Co de Phone Number [facility] [place] [address] * POCT Glucose (08/22/2022 6:14 PM EDT) Glucose, POC 193 65 - 199 mg/dL [facility] Comment: Supplemental ranges: <140 mg/dL before meals <180 mg/dL all other times of the day Blood 08/22/2022 6:14 PM EDT 08/22/2022 6:14 PM EDT Milagros Hernandez MD POINT OF CARE TEST O RDERABLES Performing Organization Address [facility] Co de Phone Number [facility] [place] [address] * (ABNORMAL) POCT Glucose (08/22/2022 5:37 PM EDT) Glucose, POC 202(H) 65 - 199 mg/dL [facility] Comment: Supplemental ranges: <140 mg/dL before meals <180 mg/dL all other times of the day Blood 08/22/2022 5:37 PM EDT 08/22/2022 5:37 PM EDT Milagros Hernandez MD POINT OF CARE TEST O RDERABLES [facility] [place] [address] * (ABNORMAL) POCT Glucose (08/22/2022 4:17 PM EDT) Glucose, POC 207(H) 65 - 199 mg/dL [facility] Comment: Supplemental ranges: <140 mg/dL before meals <180 mg/dL all other times of the day Blood 08/22/2022 4:17 PM EDT 08/22/2022 4:17 PM EDT Milagros Hernandez MD POINT OF CARE TEST O RDERABLES Performing Organization Address [facility] Co de Phone Number [facility] [place] [address] * POCT Glucose (08/22/2022 2:01 PM EDT) Glucose, POC 147 65 - 199 mg/dL [facility] Comment: Supplemental ranges: <140 mg/dL before meals <180 mg/dL all other times of the day Blood 08/22/2022 2:01 PM EDT 08/22/2022 2:01 PM EDT Milagros Hernandez MD POINT OF CARE TEST O RDERABLES Performing Organization Address [facility] Co de Phone Number [facility] [place] [address] * POCT Glucose (08/22/2022 12:10 PM EDT) Glucose, POC 121 65 - 199 mg/dL [facility] Comment: Supplemental ranges: <140 mg/dL before meals <180 mg/dL all other times of the day Blood 08/22/2022 12:1 0 PM EDT 08/22/2022 12:10 PM EDT Milagros Hernandez MD POINT OF CARE TEST O RDERABLES Performing Organization Address City/[facility]/ZIP Co de Phone Number [facility] [place] [address] * Prepare RBC (08/22/2022 11:15 AM EDT) Dispensed? Yes [facility] Blood 08/22/2022 11:1 5 AM EDT 08/22/2022 11:11 AM EDT Milagros Hernandez MD BLOOD BANK PRODUCT O RDERABLES [facility] [place] [address] * POCT Glucose (08/22/2022 10:03 AM EDT) Glucose, POC 145 65 - 199 mg/dL [facility] Comment: Supplemental ranges: <140 mg/dL before meals <180 mg/dL all other times of the day Blood 08/22/2022 10:0 3 AM EDT 08/22/2022 10:03 AM EDT Milagros Hernandez MD POINT OF CARE TEST O RDERABLES Performing Organization Address [facility]/ZIP Co de Phone Number [facility] [place] [address] * Type and Screen Validity (08/22/2022 9:00 AM EDT) T&S only valid at [facility] Comment:This Type and Screen result is only valid at the [facility] Blood 08/22/2022 9:00 AM EDT 08/22/2022 9:33 AM EDT Narrative Resulting Agency Comment Spec In Lab Reynaldo Avila MD BLOOD BANK LAB SUMI JONES Performing Organization Address City/[facility]/ZIP Co de Phone Number [facility] [place] [address] * ABORH Recheck Status (08/22/2022 9:00 AM EDT) ABORH Recheck Order Order Placed [facility] ABORH Type Recheck Complete [facility] Blood 08/22/2022 9:00 AM EDT 08/22/2022 9:33 AM EDT Narrative Resulting Agency Comment Spec In Lab Reynaldo Avila MD BLOOD BANK LAB ORDYoli JONES [facility] [place] [address] * Antibody screen (08/22/2022 9:00 AM EDT) Ab Screen Interp Negative [facility] Expires at [id number] on: 08/25/2022 [facility] Blood 08/22/2022 9:00 AM EDT 08/22/2022 9:33 AM EDT Narrative Resulting Agency Comment Spec In Lab Reynaldo Avila MD BLOOD BANK LAB SUMI JONES Performing Organization Address [facility] Co de Phone Number [facility] [place] [address] * ABO/Rh Typing (08/22/2022 9:00 AM EDT) ABORH Type O Pos [facility] Blood 08/22/2022 9:00 AM EDT 08/22/2022 9:33 AM EDT Narrative Resulting Agency Comment Spec In Lab Reynaldo Avila MD BLOOD BANK LAB ORDYoli JONES Performing Organization Address City/[facility] Co de Phone Number [facility] [place] [address] * POCT Glucose (08/22/2022 8:00 AM EDT) Glucose, POC 156 65 - 199 mg/dL [facility] Comment: Supplemental ranges: <140 mg/dL before meals <180 mg/dL all other times of the day Blood 08/22/2022 8:00 AM EDT 08/22/2022 8:00 AM EDT Milagros Hernandez MD POINT OF CARE TEST O RDERABLES [facility] [place] [address] * POCT Glucose (08/22/2022 5:53 AM EDT) Glucose, POC 154 65 - 199 mg/dL [facility] Comment: Supplemental ranges: <140 mg/dL before meals <180 mg/dL all other times of the day Blood 08/22/2022 5:53 AM EDT 08/22/2022 5:53 AM EDT Milagros Hernandez MD POINT OF CARE TEST O RDERABLES Performing Organization Address City/[facility]/ZIP Co de Phone Number [facility] [place] [address] * POCT Glucose (08/22/2022 3:40 AM EDT) Glucose, POC 182 65 - 199 mg/dL [facility] Comment: Supplemental ranges: <140 mg/dL before meals <180 mg/dL all other times of the day Blood 08/22/2022 3:40 AM EDT 08/22/2022 3:40 AM EDT Milagros Hernandez MD POINT OF CARE TEST O RDERABLES Performing Organization Address City/[facility] Co de Phone Number [facility] [place] [address] * (ABNORMAL) Differential, Automated (08/22/2022 3:39 AM EDT) Neutrophil % 79.0 % [facility] Neutrophil Absolute 13.15(H) 1.70 - 6.10 x10(3)/mc L [facility] Lymph % 10.5 % [facility] Lymphocytes Abs 1.7 0.9 - 3.2 x10(3)/[facility] Monocyte % 6.8 % [facility] Monocyte Abs 1.1(H) 0.3 - 0.9 x10(3)/mc L [facility] Eos % 0.9 % [facility] Eosinophils Abs 0.2 0.0 - 0.4 x10(3)/mc L [facility] Basophil % 0.2 % [facility] Baso Absolute 0.0 0.0 - 0.1 x10(3)/mc L [facility] Immature Gran % 2.60 % [facility] Comment: Immature granulocytes(IG's)percentage and absolute count will include metamyelocytes, myelocytes, and promyelocytes. Blood smears from CBCs yielding IG's will be scanned manually for concordance. If this scan disagrees with the automated IG or if promyelocytes are noted, a manual differential will be performed. Immature Gran Absolute 0.44(H) 0.00 - 0.04 x10(3)/ L [facility] Blood 08/22/2022 3:39 AM EDT 08/22/2022 3:47 AM EDT Narrative Resulting Agency Comment Spec In Lab Tlyer Cobb MD HEMATOLOGY ORDERABLE S Performing Organization Address City/State/[facility] Co de Phone Number [facility] [place] [address] * (ABNORMAL) Hemogram (08/22/2022 3:39 AM EDT) White Blood Cell 16.6(H) 4.0 - 9.5 x10(3)/ L [facility] Red Blood Cell 3.54(L) 4.00 - 5.21 x10(6)/mc L [facility] Hemoglobin 7.1(L) 11.7 - 15.5 g/dL [facility] Hematocrit 23.7(L) 35.7 - 45.8 % [facility] Mean Cell Volume 66.9(L) 82.6 - 94.4 fL [facility] Mean Cell Hemoglobin 20.1(L) 27.1 - 32.0 pg [facility] Mean Cell Hemoglobin Concentration 30.0(L) 31.7 - 35.0 g/dL [facility] Platelet 445(H) 145 - 357 x10(3)/mc L [facility] RDW Standard Deviation 68.9(H) 37.0 - 46.0 fL [facility] RDW coefficient of variation 31.0(H) 11.5 - 14.1 % [facility] Mean Platelet Volume 10.2 7.6 - 12.9 fL [facility] NRBC% auto 0.2 % [facility] NRBC Absolute 0.040(H) 0.000 - 0.000 x10(3)/mc L [facility] Blood 08/22/2022 3:39 AM EDT 08/22/2022 3:47 AM EDT Narrative Resulting Agency Comment Spec In Lab Tyler Cobb MD HEMATOLOGY ORDERABLE S [facility] [place] [address] * (ABNORMAL) Basic Metabolic Panel (non-fasting) (08/22/2022 3:39 AM EDT) Glucose 191 65 - 199 mg/dL [facility] Comment:Diabetes: >=200 mg/d L plus symptoms Blood Urea Nitrogen 20(H) 8 - 18 mg/dL [facility] Creatinine 0.56(L) 0.70 - 1.20 mg/dL [facility] Sodium 145 135 - 145 mmol/L [facility] Potassium 4.1 3.5 - 5.0 mmol/L [facility] Comment: Please note: ??Patients with WBC >100,000 may have falsely elevated Potassium levels. ??For accurate Potassium quantification in these patients send serum separator tube (gold top) for subsequent determinations. ??Contact the Clinical Chemistry Laboratory if there are any questions. Chloride 111(H) 98 - 107 mmol/L [facility] Carbon Dioxide 27 22 - 31 mmol/L [facility] Anion Gap 7 5 - 15 mmol/L [facility] Calcium 8.7 8.5 - 10.5 mg/dL [facility] Est Glomerular Filtration Rate 103 >=60 mL/min/1. 73 m?? [facility] Comment: This patient's estimated GFR was [...] Pascal MD CHEMISTRY ORDERABLES Performing Organization Address [facility] Co de Phone Number [facility] [place] [address] * (ABNORMAL) Phosphorus (08/22/2022 3:39 AM EDT) Phosphorus 2.4(L) 2.5 - 4.5 mg/dL [facility] Blood 08/22/2022 3:39 AM EDT 08/22/2022 3:47 AM EDT Narrative Resulting Agency Comment Spec In Lab Richard Pascal MD CHEMISTRY ORDERABLES Performing Organization Address [facility] Co de Phone Number [facility] [place] [address] * Magnesium (08/22/2022 3:39 AM EDT) [facility] Magnesium 0.86 0.69 - 1.07 mmol/L [facility] Blood 08/22/2022 3:39 AM EDT 08/22/2022 3:47 AM EDT Narrative Resulting Agency Comment Spec In Lab Richard Pascal MD CHEMISTRY ORDERABLES Performing Organization Address [facility] Co de Phone Number [facility] [place] [address] * (ABNORMAL) POCT Glucose (08/22/2022 2:15 AM EDT) Glucose, POC 232(H) 65 - 199 mg/dL [facility] Comment: Supplemental ranges: <140 mg/dL before meals <180 mg/dL all other times of the day Blood 08/22/2022 2:15 AM EDT 08/22/2022 2:15 AM EDT Milagros Hernandez MD POINT OF CARE TEST O GABRIELLA Performing Organization Address City/[facility]/ZIP Co de Phone Number [facility] [place] [address] * (ABNORMAL) POCT Glucose (08/22/2022 12:43 AM EDT) Glucose, POC 233(H) 65 - 199 mg/dL [facility] Comment: Supplemental ranges: <140 mg/dL before meals <180 mg/dL all other times of the day Blood 08/22/2022 12:4 3 AM EDT 08/22/2022 12:43 AM EDT Milagros Hernandez MD POINT OF CARE TEST O GABRIELLA Performing Organization Address [facility] Co de Phone Number [facility] [place] [address] * XR Pelvis (Generic) (08/22/2022 12:19 AM [...] who have questions please contact the health animal care taker that requested your imaging first. ? Narrative [...] patients who have questions please contactthe health animal care taker that requested your imaging first. Electronically signed by: Richard Billings MD, [facility]([phone]), at 08/22/2022 10:25 AM Milagros Hernandez MD [...] who have questions please contact the health animal care taker that requested your imaging first. ? Electronically signed by: Viktor Cervantes MD, [facility] ([phone]), at 08/22/2022 12:43 PM Narrative 08/22/2022 12:43 [...] patients who have questions please contactthe health animal care taker that requested your imaging first. Electronically signed by: [facility]([phone]), at 08/22/2022 12:43 PM Milagros Hernandez MD IMG DX ORDERABLES * (ABNORMAL) POCT Glucose (08/21/2022 10:26 PM EDT) Glucose, POC 226(H) 65 - 199 mg/dL [facility] Comment: Supplemental ranges: <140 mg/dL before meals <180 mg/dL all other times of the day Blood 08/21/2022 10:2 6 PM EDT 08/21/2022 10:26 PM EDT Milagros Hernandez MD POINT OF CARE TEST O RDERAREYMUNDO [facility] [place] [address] * POCT Glucose (08/21/2022 7:48 PM EDT) Glucose, POC 123 65 - 199 mg/dL [facility] Comment: Supplemental ranges: <140 mg/dL before meals <180 mg/dL all other times of the day Blood 08/21/2022 7:48 PM EDT 08/21/2022 7:48 PM EDT Milagros Hernandez MD POINT OF CARE TEST O RDERAREYMUNDO Performing Organization Address City/[facility]/ZIP Co de Phone Number [facility] [place] [address] * POCT Glucose (08/21/2022 5:59 PM EDT) Glucose, POC 138 65 - 199 mg/dL [facility] Comment: Supplemental ranges: <140 mg/dL before meals <180 mg/dL all other times of the day Blood 08/21/2022 5:59 PM EDT 08/21/2022 5:59 PM EDT Milagros Hernandez MD POINT OF CARE TEST O RDERAREYMUNDO Performing Organization Address City/[facility]/ZIP Co de Phone Number [facility] [place] [address] * POCT Glucose (08/21/2022 5:06 PM EDT) Glucose, POC 152 65 - 199 mg/dL [facility] Comment: Supplemental ranges: <140 mg/dL before meals <180 mg/dL all other times of the day Blood 08/21/2022 5:06 PM EDT 08/21/2022 5:06 PM EDT Milagros Hernandez MD POINT OF CARE TEST O RDERABLES Performing Organization Address City/[facility]/ZIP Co de Phone Number [facility] [place] [address] * Cell Count, Bronchoalveolar Lavage (08/21/2022 4:50 PM EDT) Color BAL White [facility] Appearance, BAL Hazy [facility] NUC, BAL Count 422 mcL [facility] Seg BAL 87 % [facility] Lymph, BAL 10 % [facility] Macrophage BAL 2 % [facility] Eos, BAL 1 % [facility] Total Cells, BAL 200 Cells [facility] Bronchial Alveolar Lavage 08/21/2022 4:50 PM EDT 08/21/2022 5:37 PM EDT Narrative Resulting Agency Comment Spec In Lab Milagros Hernandez MD BODY FLUIDS AND STOO LS ORDERABLES Performing Organization Address [facility] Co de Phone Number [facility] [place] [address] * Calcofluor White Stain (08/21/2022 4:50 PM EDT) Calcofluor Stain Calcofluor White Preparation: Negative [facility] Bronchial Alveolar Lavage 08/21/2022 4:50 PM EDT 08/21/2022 5:37 PM EDT Comment:JACQUI Narrative Resulting Agency Comment Spec In Lab Reynaldo Avila MD MICROBIOLOGY - GENE RAL ORDERABLES Performing Organization Address [facility] Co de Phone Number [facility] [place] [address] * (ABNORMAL) Fungus culture (08/21/2022 4:50 PM EDT) Fungus Culture Rare Jacky albicans(A) [facility] Organism Jacky albicans(A) [facility] Bronchial Alveolar Lavage 08/21/2022 4:50 PM EDT 08/21/2022 5:37 PM EDT Comment:JACQUI Narrative Resulting Agency Comment Spec In Lab Reynaldo Avila MD MICROBIOLOGY - GENE RAL ORDERABLES Performing Organization Address City/[facility] Co de Phone Number [facility] [address] * AFB culture Bronchial Alveolar Lavage (08/21/2022 4:50 PM EDT) Acid Fast Bacilli Culture No Acid Fast Bacilli isolated If active tuberculosis is suspected, the patient should be on [employer]. Call Infection Prevention for assistance if needed. [facility] Acid Fast Stain No Acid Fast Bacilli seen [facility] Bronchial Alveolar Lavage 08/21/2022 4:50 PM EDT 08/21/2022 5:37 PM EDT Comment:JACQUI Narrative Resulting Agency Comment Spec In Lab Milagros Hernandez MD MICROBIOLOGY - GENER AL ORDERABLES Performing Organization Address [facility] [place] [address] * Lower Respiratory Culture Bronchial Alveolar Lavage (08/21/2022 4:50 PM EDT) Lower Respiratory Culture Rare mixed bacterial morphotypes suggestive of normal upper respiratory wiley [facility] Gram Stain Few Neutrophils seen No squamous epithelial cells seen No microorganisms seen. [facility] Bronchial Alveolar Lavage 08/21/2022 4:50 PM EDT 08/21/2022 5:37 PM EDT Comment:JACQUI Narrative Resulting Agency Comment Spec In Lab Milagros Hernandez MD MICROBIOLOGY - GENER AL ORDERABLES Performing Organization Address [facility] Co de Phone Number [facility] [place] [address] * Cell Count, Bronchoalveolar Lavage (08/21/2022 4:45 PM EDT) Color BAL White [facility] Appearance, BAL Cloudy [facility] NUC, BAL Count 1,471 mcL [facility] Seg BAL 81 % [facility] Lymph, BAL 17 % [facility] Macrophage BAL 2 % [facility] Total Cells, BAL 200 Cells [facility] [facility] Bronchial Alveolar Lavage 08/21/2022 4:45 PM EDT 08/21/2022 5:36 PM EDT Narrative Resulting Agency Comment Spec In Lab Aileen Mayorga MD BODY FLUIDS AND STOO LS ORDERABLES Performing Organization Address City/[facility]/ZIP Co de Phone Number [facility] [place] [address] * Calcofluor White Stain (08/21/2022 4:45 PM EDT) Calcofluor Stain Calcofluor White Preparation: Negative [facility] Bronchial Alveolar Lavage 08/21/2022 4:45 PM EDT 08/21/2022 5:39 PM EDT Narrative Resulting Agency Comment Spec In Lab Reynaldo Avila MD MICROBIOLOGY - GENE RAL ORDERABLES Performing Organization Address [facility] Co de Phone Number [facility] [place] [address] * (ABNORMAL) Fungus culture (08/21/2022 4:45 PM EDT) Fungus Culture Rare Jacky albicans(A) [facility] Organism Jacky albicans(A) [facility] Bronchial Alveolar Lavage 08/21/2022 4:45 PM EDT 08/21/2022 5:39 PM EDT Narrative Resulting Agency Comment Spec In Lab Reynaldo Avila MD MICROBIOLOGY - GENE RAL ORDERABLES Performing Organization Address City/[facility]/ZIP Co de Phone Number [facility] [place] [address] * AFB culture Bronchial Alveolar Lavage (08/21/2022 4:45 PM EDT) Acid Fast Bacilli Culture No Acid Fast Bacilli isolated If active tuberculosis is suspected, the patient should be on [employer]. Call Infection Prevention for assistance if needed. [facility] Acid Fast Stain No Acid Fast Bacilli seen [facility] Bronchial Alveolar Lavage 08/21/2022 4:45 PM EDT 08/21/2022 5:39 PM EDT Narrative Resulting Agency Comment Spec In Lab Milagros Hernandez MD MICROBIOLOGY - GENER AL ORDERABLES Performing Organization Address City/[facility] Co de Phone Number [facility] [place] [address] * Lower Respiratory Culture Bronchial Alveolar Lavage (08/21/2022 4:45 PM EDT) Pathologist [facility] [place] Lower Respiratory Culture Rare mixed bacterial morphotypes suggestive of normal upper respiratory wiley [facility] Gram Stain Moderate Neutrophils seen No squamous epithelial cells seen No microorganisms seen. [facility] Bronchial Alveolar Lavage 08/21/2022 4:45 PM EDT 08/21/2022 5:39 PM EDT Narrative Resulting Agency Comment Spec In Lab Milagros Hernandez MD MICROBIOLOGY - GENER AL ORDERABLES Performing Organization Address [facility] Co de Phone Number [facility] [place] [address] * Potassium (08/21/2022 3:45 PM EDT) Potassium 3.9 3.5 - 5.0 mmol/L [facility] Comment: Please note: ??Patients with WBC [...] Pascal MD CHEMISTRY ORDERABLES Performing Organization Address City/[facility] Co de Phone Number [facility] [place] [address] * POCT Glucose (08/21/2022 3:24 PM EDT) Glucose, POC 148 65 - 199 mg/dL [facility] Comment: Supplemental ranges: <140 mg/dL before meals <180 mg/dL all other times of the day Blood 08/21/2022 3:24 PM EDT 08/21/2022 3:24 PM EDT Milagros Hernandez MD POINT OF CARE TEST O RDERABLES [facility] [place] [address] * IR Ultrasound in IR (08/21/2022 3:09 [...] Glucose, POC 191 65 - 199 mg/dL [facility] Comment: Supplemental ranges: <140 mg/dL before meals <180 mg/dL all other times of the day Blood 08/21/2022 1:34 PM EDT 08/21/2022 1:34 PM EDT Milagros Hernandez MD POINT OF CARE TEST O RDERABLES Performing Organization Address [facility] Co de Phone Number [facility] [place] [address] * POCT Glucose (08/21/2022 12:58 PM EDT) Glucose, POC 196 65 - 199 mg/dL [facility] Comment: Supplemental ranges: <140 mg/dL before meals <180 mg/dL all other times of the day Blood 08/21/2022 12:5 8 PM EDT 08/21/2022 12:58 PM EDT Milagros Hernandez MD POINT OF CARE TEST O RDERABLES Performing Organization Address [facility] Co de Phone Number [facility] [place] [address] * (ABNORMAL) CRP, acute inflammation (08/21/2022 12:00 PM EDT) C-Reactive Protein 19.4(H) <=4.9 mg/L [facility] Blood 08/21/2022 12:0 0 PM EDT 08/21/2022 12:24 PM EDT Narrative Resulting Agency Comment Spec In Lab Milagros Hernandez MD CHEMISTRY ORDERABLES Performing Organization Address [facility] Co de Phone Number [facility] [place] [address] * (ABNORMAL) Sedimentation rate (08/21/2022 12:00 PM EDT) Sedimentation Rate Automated >119(H) 2 - 39 mm/hr [facility] Comment: Effective April 19, 2019 new capillary photometric technology has resulted in a change in reference ranges. It is recommended that each ESR result be reviewed with its own age appropriate reference range. Blood 08/21/2022 12:0 0 PM EDT 08/21/2022 12:24 PM EDT Narrative Resulting Agency Comment Spec In Lab Milagros Hernandez MD HEMATOLOGY ORDERABLE S Performing Organization Address [facility] Co de Phone Number [facility] [place] [address] * POCT Glucose (08/21/2022 11:56 AM EDT) Pathologist [facility] [place] Glucose, POC 182 65 - 199 mg/dL [facility] Comment: Supplemental ranges: <140 mg/dL before meals <180 mg/dL all other times of the day Blood 08/21/2022 11:5 6 AM EDT 08/21/2022 11:56 AM EDT Milagros Hernandez MD POINT OF CARE TEST O RDERABLES Performing Organization Address [facility] de Phone Number [facility] [place] [address] * Potassium (08/21/2022 10:00 AM EDT) [facility] Potassium 4.4 3.5 - 5.0 mmol/L [facility] Comment: Please note: ??Patients with WBC [...] In Lab Tyler Cobb MD CHEMISTRY ORDERABLES [facility] [place] [address] * Ferritin (08/21/2022 10:00 AM EDT) Ferritin 85 30 - 400 ng/mL [facility] Comment: Pediatric reference ranges not verified at [facility], interpret with caution. Reference ranges for females greater than 50 years of age approach values for men, i.e., 30-400 ng/mL. Blood 08/21/2022 10:0 0 AM EDT 08/21/2022 10:12 AM EDT Narrative Resulting Agency Comment Spec In Lab Carlos Terry MD CHEMISTRY ORDERABLES Performing Organization Address City/[facility]/ZIP Co de Phone Number [facility] [place] [address] * (ABNORMAL) Iron and TIBC (08/21/2022 10:00 AM EDT) Pathologist [facility] Iron 25(L) 30 - 150 mcg/dL [facility] TIBC 203(L) 250 - 450 mcg/dL [facility] Iron Saturation 12(L) 20 - 50 % [facility] Blood 08/21/2022 10:0 0 AM EDT 08/21/2022 10:12 AM EDT Narrative Resulting Agency Comment Spec In Lab Carlos Terry MD CHEMISTRY ORDERABLES Performing Organization Address City/[facility]/ZIP Co de Phone Number [facility] [place] [address] * Histoplasma Antigen, Urine (08/21/2022 10:00 AM EDT) Pathologist [facility] [place] U Histoplasma Ag (MAY) Not Detected Not Detected [facility] Comment: No Histoplasma antigen detected. False negative results may occur. ??Repeat testing on a new specimen should be considered if clinically indicated. Test Performed by: [facility] [address] [place] [id number] Filter Operator: Rock Leone M.D. Ph.D.; CLIA# [id number] U Histo Ag Value (MAY) Not Detected ng/mL [facility] Comment: ADDITIONAL INFORMATION This test has been modified from the district associate judge's instructions. Its performance characteristics were determined by [facility] in a manner consistent with CLIA requirements. This test has not been cleared or approved by the U.S. Food and Drug Administration. Test Performed by: [facility] [address] [place] [address] Filter Operator: Rock Leone M.D. Ph.D.; CLIA# [id number] Urine 08/21/2022 10:0 0 AM EDT 08/21/2022 1:15 PM EDT Narrative Resulting Agency Comment Spec In Lab Carlos Terry MD LAB SEND OUT ORDERAB LES Performing Organization Address [facility] Co de Phone Number [facility] [place] [address] * POCT Glucose (08/21/2022 9:57 AM EDT) Glucose, POC 141 65 - 199 mg/dL [facility] Comment: Supplemental ranges: <140 mg/dL before meals <180 mg/dL all other times of the day Blood 08/21/2022 9:57 AM EDT 08/21/2022 9:57 AM EDT Milagros Hernandez MD POINT OF CARE TEST O RDERABLES Performing Organization Address [facility] Co de Phone Number [facility] [place] [address] * Aspergillus Antigen (08/21/2022 8:30 AM EDT) Aspergillus Ag (SEPTEMBER) <0.500 <0.5 Index [facility] Comment: ADDITIONAL INFORMATION This is a qualitative test and the resulted index value is not indicative of disease severity. ??Serial testing is recommended for patients at high risk for invasive aspergillosis. This assay was performed using the FDA-cleared [employer] Platelia Aspergillus Galactomannan EIA. Test Performed by: [facility] [employer] [address] [address] Filter Operator: Rock Leone M.D. Ph.D.; CLIA# [id number] Blood 08/21/2022 8:30 AM EDT 08/21/2022 1:15 PM EDT Narrative Resulting Agency Comment Spec In Lab Carlos Terry MD LAB SEND OUT ORDERAB LES Performing Organization Address City/[facility]/ZIP Co de Phone Number [facility] [place] [address] * POCT Glucose (08/21/2022 8:28 AM EDT) Glucose, POC 118 65 - 199 mg/dL [facility] Comment: Supplemental ranges: <140 mg/dL before meals <180 mg/dL all other times of the day Blood 08/21/2022 8:28 AM EDT 08/21/2022 8:28 AM EDT Carlos Terry MD POINT OF CARE TEST O RDERABLES Performing Organization Address [facility] Co de Phone Number [facility] [place] [address] * (ABNORMAL) Fungitell (1,3-Rqlx-K-Glucan) (08/21/2022 8:00 AM EDT) Fungitell Quantitative Value (MAY) >500(A) <60 pg/mL pg/mL [facility] Comment: Test Performed by: [facility] [employer] - [address] [address] Filter Operator: Rock Leone M.D. Ph.D.; CLIA# [id number] Fungitell Qualitative Result (MAY) Positive (A) Negative [facility] Comment: (1, 3) Ccbs-P-Mpgnyn detected. A single positive result should be [...] produce very low levels of (1, 3) Puif-N-Wupkqc (BDG) and the Mucorales (e.g., Lichthemia, Mucor and Rhizopus), which are not known to produce BDG. Additionally, the yeast phase of Blastomyces dermatitidis produces little BDG and may not be detected by this assay. ADDITIONAL INFORMATION This assay was performed using the FDA-cleared Fungitell Assay ([facility], [place], [place], [place]), a kinetic DALILA based on modification of the Limulus Amebocyte Lysate pathway. Test Performed by: [address] [address] Filter Operator: Rock Leone M.D. Ph.D.; CLIA# [id number] Blood 08/21/2022 8:00 AM EDT 08/21/2022 1:15 PM EDT Narrative Resulting Agency Comment Spec In Lab Carlos Terry MD LAB SEND OUT ORDERAB LES [facility] [place] [address] * POCT Glucose (08/21/2022 7:50 AM EDT) Glucose, POC 130 65 - 199 mg/dL [facility] Comment: Supplemental ranges: <140 mg/dL before meals <180 mg/dL all other times of the day Blood 08/21/2022 7:50 AM EDT 08/21/2022 7:50 AM EDT Carlos Terry MD POINT OF CARE TEST O RDERABLES Performing Organization Address [facility] Co de Phone Number [facility] [place] [address] * POCT Glucose (08/21/2022 6:06 AM EDT) Glucose, POC 141 65 - 199 mg/dL [facility] Comment: Supplemental ranges: <140 mg/dL before meals <180 mg/dL all other times of the day Blood 08/21/2022 6:06 AM EDT 08/21/2022 6:06 AM EDT Carlos eTrry MD POINT OF CARE TEST O RDERAREYMUNDO Performing Organization Address [facility] de Phone Number [facility] [place] [address] * POCT Glucose (08/21/2022 3:48 AM EDT) Glucose, POC 187 65 - 199 mg/dL [facility] Comment: Supplemental ranges: <140 mg/dL before meals <180 mg/dL all other times of the day Blood 08/21/2022 3:48 AM EDT 08/21/2022 3:48 AM EDT Carlos Terry MD POINT OF CARE TEST O RDERABLES Performing Organization Address [facility] Co de Phone Number [facility] [place] [address] * (ABNORMAL) Differential, Automated (08/21/2022 3:46 AM EDT) Neutrophil % 79.8 % [facility] Neutrophil Absolute 16.69(H) 1.70 - 6.10 x10(3)/mc L [facility] Lymph % 9.2 % [facility] Lymphocytes Abs 1.9 0.9 - 3.2 x10(3)/mc L [facility] Monocyte % 6.2 % [facility] Monocyte Abs 1.3(H) 0.3 - 0.9 x10(3)/ L [facility] Eos % 0.3 % [facility] Eosinophils Abs 0.1 0.0 - 0.4 x10(3)/[facility] Basophil % 0.2 % [facility] Baso Absolute 0.0 0.0 - 0.1 x10(3)/ L [facility] Immature Gran % 4.30 % [facility] Comment: Immature granulocytes(IG's)percentage and absolute count will include metamyelocytes, myelocytes, and promyelocytes. Blood smears from CBCs yielding IG's will be scanned manually for concordance. If this scan disagrees with the automated IG or if promyelocytes are noted, a manual differential will be performed. Immature Gran Absolute 0.89(H) 0.00 - 0.04 x10(3)/ L [facility] Blood 08/21/2022 3:46 AM EDT 08/21/2022 3:58 AM EDT Narrative Resulting Agency Comment Spec In Lab Tyler Cobb MD HEMATOLOGY ORDERABLE S [facility] [place] [address] * (ABNORMAL) Hemogram (08/21/2022 3:46 AM EDT) White Blood Cell 20.9(H) 4.0 - 9.5 x10(3)/mc L [facility] Red Blood Cell 3.68(L) 4.00 - 5.21 x10(6)/ L [facility] Hemoglobin 7.4(L) 11.7 - 15.5 g/dL [facility] Hematocrit 24.2(L) 35.7 - 45.8 % [facility] Mean Cell Volume 65.8(L) 82.6 - 94.4 fL [facility] Mean Cell Hemoglobin 20.1(L) 27.1 - 32.0 pg [facility] Mean Cell Hemoglobin Concentration 30.6(L) 31.7 - 35.0 g/dL [facility] Platelet 381(H) 145 - 357 x10(3)/mc L [facility] RDW Standard Deviation 67.2(H) 37.0 - 46.0 fL [facility] RDW coefficient of variation 30.4(H) 11.5 - 14.1 % [facility] Mean Platelet Volume 10.1 7.6 - 12.9 fL [facility] NRBC% auto 0.5 % [facility] NRBC Absolute 0.110(H) 0.000 - 0.000 x10(3)/mc L [facility] Blood 08/21/2022 3:46 AM EDT 08/21/2022 3:58 AM EDT Narrative Resulting Agency Comment Spec In Lab Tyler Cobb MD HEMATOLOGY ORDERABLE S Performing Organization Address City/State/[facility] Co de Phone Number [facility] [place] [address] * (ABNORMAL) Basic Metabolic Panel (non-fasting) (08/21/2022 3:46 AM EDT) Glucose 188 65 - 199 mg/dL [facility] Comment:Diabetes: >=200 mg/d L plus symptoms Blood Urea Nitrogen 22(H) 8 - 18 mg/dL [facility] Creatinine 0.60(L) 0.70 - 1.20 mg/dL [facility] Sodium 145 135 - 145 mmol/L [facility] Potassium 3.7 3.5 - 5.0 mmol/L [facility] Comment: Please note: ??Patients with WBC >100,000 may have falsely elevated Potassium levels. ??For accurate Potassium quantification in these patients send serum separator tube (gold top) for subsequent determinations. ??Contact the Clinical Chemistry Laboratory if there are any questions. Chloride 107 98 - 107 mmol/L [facility] Carbon Dioxide 31 22 - 31 mmol/L [facility] Anion Gap 7 5 - 15 mmol/L [facility] Calcium 8.7 8.5 - 10.5 mg/dL [facility] Est Glomerular Filtration Rate 101 >=60 mL/min/1. 73 m?? [facility] Comment: This patient's estimated GFR [...] Pascal MD CHEMISTRY ORDERABLES Performing Organization Address [facility] Co de Phone Number [facility] [place] [address] * (ABNORMAL) Phosphorus (08/21/2022 3:46 AM EDT) Phosphorus 2.4(L) 2.5 - 4.5 mg/dL [facility] Blood 08/21/2022 3:46 AM EDT 08/21/2022 3:58 AM EDT Narrative Resulting Agency Comment Spec In Lab Richard Pascal MD CHEMISTRY ORDERABLES Performing Organization Address [facility] Co de Phone Number [facility] [place] [address] * Magnesium (08/21/2022 3:46 AM EDT) Magnesium 0.87 0.69 - 1.07 mmol/L [facility] Blood 08/21/2022 3:46 AM EDT 08/21/2022 3:58 AM EDT Narrative Resulting Agency Comment Spec In Lab Richard Pascal MD CHEMISTRY ORDERABLES Performing Organization Address City/[facility] Co de Phone Number [facility] [place] [address] * (ABNORMAL) Lipase (08/21/2022 3:46 AM EDT) Lipase 178(H) 0 - 60 unit/L [facility] Blood 08/21/2022 3:46 AM EDT 08/21/2022 3:58 AM EDT Narrative Resulting Agency Comment Spec In Lab Carlos Terry MD CHEMISTRY ORDERABLES Performing Organization Address [facility] Co de Phone Number [facility] [place] [address] * POCT Glucose (08/21/2022 1:57 AM EDT) Glucose, POC 167 65 - 199 mg/dL [facility] Comment: Supplemental ranges: <140 mg/dL before meals <180 mg/dL all other times of the day Blood 08/21/2022 1:57 AM EDT 08/21/2022 1:57 AM EDT Carlos Terry MD POINT OF CARE TEST O RDERABLES Performing Organization Address [facility] Co de Phone Number [facility] [place] [address] * (ABNORMAL) POCT Glucose (08/20/2022 11:55 PM EDT) Glucose, POC 221(H) 65 - 199 mg/dL [facility] Comment: Supplemental ranges: <140 mg/dL before meals <180 mg/dL all other times of the day Blood 08/20/2022 11:5 5 PM EDT 08/20/2022 11:55 PM EDT Carlos Terry MD POINT OF CARE TEST O RDERAREYMUNDO Performing Organization Address [facility] Co de Phone Number [facility] [place] [address] * CT Chest w Contrast (08/20/2022 11:04 [...] who have questions please contact the health animal care taker that requested your imaging first. ? Electronically signed by: Jagdeep Lee MD, [facility] ([phone]), at 08/21/2022 6:56 AM Narrative 08/21/2022 6:56 [...] the diaphragm with tip not included the [id number]. There is some wall thickening of the [...] the duodenum, not fully included in the moiza-fq-[id number]. Skeletal structures: No acute osseous findings. No [...] below the diaphragmwith tip not included the [id number]. There is some wall thickening of theesophagus. [...] portion the duodenum,not fully included in the [id number]. Skeletal structures: No acute osseous findings. No [...] patients who have questions please contactthe health animal care taker that requested your imaging first. Electronically signed by: Jagdeep Lee MD, [facility]([phone]), at 08/21/2022 6:56 AM Carlos Terry MD IMG CT ORDERABLES [...] who have questions please contact the health animal care taker that requested your imaging first. ? Electronically signed by: Aicha Chowdhury MD, [facility] ([phone]), at 08/21/2022 9:34 AM Narrative 08/21/2022 9:34 [...] hip performed after administration of 110 mL [id number]. Coronal and sagittal reformats were obtained. COMPARISON: [...] 1.8 cm (series 9, image 251 and [id number], image 46), without rim enhancement to suggest [...] patients who have questions please contactthe health animal care taker that requested your imaging first. Electronically signed by: Aicha Chowdhury MD, [facility]([phone]), at 08/21/2022 9:34 AM Carlos Terry MD IMG CT ORDERABLES * POCT Glucose (08/20/2022 9:54 PM EDT) Glucose, POC 195 65 - 199 mg/dL [facility] Comment: Supplemental ranges: <140 mg/dL before meals <180 mg/dL all other times of the day Blood 08/20/2022 9:54 PM EDT 08/20/2022 9:54 PM EDT Carlos Terry MD POINT OF CARE TEST O RDERABLES Performing Organization Address City/[facility]/ZIP Co de Phone Number [facility] [place] [address] * POCT Glucose (08/20/2022 8:46 PM EDT) Glucose, POC 118 65 - 199 mg/dL [facility] Comment: Supplemental ranges: <140 mg/dL before meals <180 mg/dL all other times of the day Blood 08/20/2022 8:46 PM EDT 08/20/2022 8:46 PM EDT Carlos Terry MD POINT OF CARE TEST O RDERAREYMUNDO [facility] [place] [address] * POCT Glucose (08/20/2022 6:21 PM EDT) Glucose, POC 164 65 - 199 mg/dL [facility] Comment: Supplemental ranges: <140 mg/dL before meals <180 mg/dL all other times of the day Blood 08/20/2022 6:21 PM EDT 08/20/2022 6:21 PM EDT Carlos Terry MD POINT OF CARE TEST O RDERAREYMUNDO Performing Organization Address City/[facility]/ZIP Co de Phone Number [facility] [place] [address] * POCT Glucose (08/20/2022 4:27 PM EDT) Glucose, POC 180 65 - 199 mg/dL [facility] Comment: Supplemental ranges: <140 mg/dL before meals <180 mg/dL all other times of the day Blood 08/20/2022 4:27 PM EDT 08/20/2022 4:27 PM EDT Carlos Terry MD POINT OF CARE TEST O HUGHERAREYMUNDO Performing Organization Address [facility] Co de Phone Number [facility] [place] [address] * POCT Glucose (08/20/2022 2:11 PM EDT) Glucose, POC 150 65 - 199 mg/dL [facility] Comment: Supplemental ranges: <140 mg/dL before meals <180 mg/dL all other times of the day Blood 08/20/2022 2:11 PM EDT 08/20/2022 2:11 PM EDT Carlos Terry MD POINT OF CARE TEST O RDERAREYMUNDO Performing Organization Address [facility] Co de Phone Number [facility] [place] [address] * (ABNORMAL) Hepatic Function Panel (08/20/2022 2:00 PM EDT) Protein, Total 5.6(L) 6.1 - 8.0 g/dL [facility] Albumin 2.5(L) 3.2 - 5.2 g/dL [facility] Aspartate Aminotransferase 39(H) 0 - 30 unit/L [facility] Alanine Aminotransferase 20 0 - 30 unit/L [facility] Alkaline Phosphatase 213(H) 35 - 105 unit/L [facility] Bilirubin, Total <0.2(L) 0.2 - 1.3 mg/dL [facility] Bilirubin, Direct 0.1 0.0 - 0.3 mg/dL [facility] Blood 08/20/2022 2:00 PM EDT 08/20/2022 2:20 PM EDT Narrative Resulting Agency Comment Spec In Lab Carlos Terry MD CHEMISTRY ORDERABLES Performing Organization Address [facility] Co de Phone Number [facility] [place] [address] * TSH [place] (08/20/2022 2:00 PM EDT) Thyroid Stimulating Hormone 1.90 0.27 - 4.20 mcIU/mL [facility] Comment: Reference Interval (mcIU/mL): Females: ??First Trimester: 0.23-3.88 ??Second Trimester: 0.22-3.90 ??Third Trimester: 0.44-4.66 Blood 08/20/2022 2:00 PM EDT 08/20/2022 2:20 PM EDT Narrative Resulting Agency Comment Spec In Lab Carlos Terry MD CHEMISTRY ORDERABLES Performing Organization Address [facility] Co de Phone Number [facility] [place] [address] * POCT Glucose (08/20/2022 12:13 PM EDT) Glucose, POC 163 65 - 199 mg/dL [facility] Comment: Supplemental ranges: <140 mg/dL before meals <180 mg/dL all other times of the day Blood 08/20/2022 12:1 3 PM EDT 08/20/2022 12:13 PM EDT Carlos Terry MD POINT OF CARE TEST O RDERABLES Performing Organization Address City/[facility] Co de Phone Number [facility] [place] [address] * POCT Glucose (08/20/2022 10:05 AM EDT) Glucose, POC 196 65 - 199 mg/dL [facility] Comment: Supplemental ranges: <140 mg/dL before meals <180 mg/dL all other times of the day Blood 08/20/2022 10:0 5 AM EDT 08/20/2022 10:05 AM EDT Carlos Terry MD POINT OF CARE TEST O RDERABLES [facility] [place] [address] * (ABNORMAL) POCT Glucose (08/20/2022 7:26 AM EDT) Glucose, POC 233(H) 65 - 199 mg/dL [facility] Comment: Supplemental ranges: <140 mg/dL before meals <180 mg/dL all other times of the day Blood 08/20/2022 7:26 AM EDT 08/20/2022 7:26 AM EDT Carlos Terry MD POINT OF CARE TEST O RDERABLES [facility] [place] [address] * POCT Glucose (08/20/2022 6:31 AM EDT) Glucose, POC 190 65 - 199 mg/dL [facility] Comment: Supplemental ranges: <140 mg/dL before meals <180 mg/dL all other times of the day Blood 08/20/2022 6:31 AM EDT 08/20/2022 6:31 AM EDT Carlos Terry MD POINT OF CARE TEST O RDERABLES [facility] [place] [address] * (ABNORMAL) BLOOD GAS 2 ARTERIAL (08/20/2022 5:41 AM EDT) pH, Arterial 7.56(H) 7.35 - 7.45 [facility] PCO2, Arterial 31(L) 35 - 45 mmHg [facility] PO2, Arterial 92 85 - 104 mmHg [facility] Bicarbonate, Arterial 27.3(H) 20.0 - 26.0 mmol/L [facility] Base Excess, Arterial 5.0(H) -3.0 - 3.0 mmol/L [facility] Hgb Blood Gas 8.5(L) 11.7 - 15.5 g/dL [facility] Oxyhemoglobin, Arterial 96.0 94.0 - 97.0 % [facility] Carboxyhemoglob in, Arterial 0.3 % [facility] Comment: Nonsmokers: 0.5-1.5% COHB Smokers: Variable, but usually less than 10% Toxic: 20-30% COHB Lethal: Greater than 60% COHB Methemoglobin, Arterial 0.9 <=1.5 % [facility] Na Whole Blood 141 135 - 145 mmol/L [facility] K Whole Blood 3.6 3.5 - 5.0 mmol/L [facility] Comment: Please note: Patients with WBC >100,000 may have falsely elevated Potassium levels. Contact the Clinical Chemistry Laboratory if there are any questions. ICa Whole Blood 1.15 1.15 - 1.33 mmol/L [facility] Comment: Note: ??Total bilirubin higher than 20 mg/dL may lead to falsely low ionized calcium. CL Whole Blood 110(H) 98 - 107 mmol/L [facility] Gluc Whole Bld 160 65 - 199 mg/dL [facility] Comment:Diabetes: >=200 mg/d L plus symptoms. Lactate WB 1.6 0.5 - 2.2 mmol/L [facility] FIO2 Art 30 % [facility] PF Ratio Art 307 [facility] Blood 08/20/2022 5:41 AM EDT 08/20/2022 5:41 AM EDT Carlos eTrry MD POINT OF CARE TEST O RDERABLES [facility] [place] [address] * POCT Glucose (08/20/2022 4:29 AM EDT) Glucose, POC 114 65 - 199 mg/dL [facility] Comment: Supplemental ranges: <140 mg/dL before meals <180 mg/dL all other times of the day Blood 08/20/2022 4:29 AM EDT 08/20/2022 4:29 AM EDT Carlos Terry MD POINT OF CARE TEST O RDERABLES [facility] [place] [address] * POCT Glucose (08/20/2022 3:53 AM EDT) Glucose, POC 114 65 - 199 mg/dL [facility] Comment: Supplemental ranges: <140 mg/dL before meals <180 mg/dL all other times of the day Blood 08/20/2022 3:53 AM EDT 08/20/2022 3:53 AM EDT Carlos Terry MD POINT OF CARE TEST O RDERABLES [facility] [place] [address] * POCT Glucose (08/20/2022 2:05 AM EDT) Glucose, POC 140 65 - 199 mg/dL [facility] Comment: Supplemental ranges: <140 mg/dL before meals <180 mg/dL all other times of the day Blood 08/20/2022 2:05 AM EDT 08/20/2022 2:05 AM EDT Carlos Terry MD POINT OF CARE TEST O RDERABLES [facility] [place] [address] * Scan, Peripheral Blood (08/20/2022 12:30 AM EDT) Plat estimate Normal [facility] RBC Morphology Abnormal [facility] Macrocyte 1-5 /HPF [facility] Microcyte gtr than 10 /HPF [facility] Hypochromia Moderate [facility] Polychromasia Present >5/HPF [facility] Ovalocytes 1-5 /HPF [facility] Target Cells 1-5 /HPF [facility] Blood 08/20/2022 12:3 0 AM EDT 08/20/2022 12:32 AM EDT Narrative Resulting Agency Comment Spec In Lab Tyler Cobb MD HEMATOLOGY ORDERABLE S [facility] [place] [address] * (ABNORMAL) Differential, Automated (08/20/2022 12:30 AM EDT) Neutrophil % 77.6 % [facility] Neutrophil Absolute 21.72(H) 1.70 - 6.10 x10(3)/mc L [facility] Lymph % 8.3 % [facility] Lymphocytes Abs 2.3 0.9 - 3.2 x10(3)/mc L [facility] Monocyte % 6.5 % [facility] Monocyte Abs 1.8(H) 0.3 - 0.9 x10(3)/mc L [facility] Eos % 0.2 % [facility] Eosinophils Abs 0.0 0.0 - 0.4 x10(3)/mc L [facility] Basophil % 0.3 % [facility] Baso Absolute 0.1 0.0 - 0.1 x10(3)/mc L [facility] Immature Gran % 7.10 % [facility] Comment: Immature granulocytes(IG's)percentage and absolute count will include metamyelocytes, myelocytes, and promyelocytes. Blood smears from CBCs yielding IG's will be scanned manually for concordance. If this scan disagrees with the automated IG or if promyelocytes are noted, a manual differential will be performed. Immature Gran Absolute 2.00(H) 0.00 - 0.04 x10(3)/mc L [facility] Blood 08/20/2022 12:3 0 AM EDT 08/20/2022 12:32 AM EDT Narrative Resulting Agency Comment Spec In Lab Tyler Cobb MD HEMATOLOGY ORDERABLE S [facility] [place] [address] * (ABNORMAL) Hemogram (08/20/2022 12:30 AM EDT) White Blood Cell 28.0(H) 4.0 - 9.5 x10(3)/ L [facility] Red Blood Cell 4.08 4.00 - 5.21 x10(6)/mc L [facility] Hemoglobin 8.2(L) 11.7 - 15.5 g/dL [facility] Hematocrit 26.4(L) 35.7 - 45.8 % [facility] Mean Cell Volume 64.7(L) 82.6 - 94.4 fL [facility] Mean Cell Hemoglobin 20.1(L) 27.1 - 32.0 pg [facility] Mean Cell Hemoglobin Concentration 31.1(L) 31.7 - 35.0 g/dL [facility] Platelet 351 145 - 357 x10(3)/mc L [facility] RDW Standard Deviation 63.9(H) 37.0 - 46.0 fL [facility] RDW coefficient of variation 29.8(H) 11.5 - 14.1 % [facility] Mean Platelet Volume 10.1 7.6 - 12.9 fL [facility] NRBC% auto 0.8 % [facility] NRBC Absolute 0.230(H) 0.000 - 0.000 x10(3)/mc L [facility] Blood 08/20/2022 12:3 0 AM EDT 08/20/2022 12:32 AM EDT Narrative Resulting Agency Comment Spec In Lab Tyler Cobb MD HEMATOLOGY ORDERABLE S Performing Organization Address City/[facility]/ZIP Co de Phone Number [facility] [place] [address] * (ABNORMAL) Basic Metabolic Panel (non-fasting) (08/20/2022 12:30 AM EDT) Glucose 188 65 - 199 mg/dL [facility] Comment:Diabetes: >=200 mg/d L plus symptoms Blood Urea Nitrogen 21(H) 8 - 18 mg/dL [facility] Creatinine 0.55(L) 0.70 - 1.20 mg/dL [facility] Sodium 144 135 - 145 mmol/L [facility] Potassium 4.1 3.5 - 5.0 mmol/L [facility] Comment: Please note: ??Patients with WBC >100,000 may have falsely elevated Potassium levels. ??For accurate Potassium quantification in these patients send serum separator tube (gold top) for subsequent determinations. ??Contact the Clinical Chemistry Laboratory if there are any questions. Chloride 107 98 - 107 mmol/L [facility] Carbon Dioxide 28 22 - 31 mmol/L [facility] Anion Gap 9 5 - 15 mmol/L [facility] Calcium 8.5 8.5 - 10.5 mg/dL [facility] Est Glomerular Filtration Rate 104 >=60 mL/min/1. 73 m?? [facility] Comment: This patient's estimated GFR was [...] Pascal MD CHEMISTRY ORDERABLES Performing Organization Address [facility]/ZIP Co de Phone Number [facility] [place] [address] * (ABNORMAL) Phosphorus (08/20/2022 12:30 AM EDT) Phosphorus 1.7(L) 2.5 - 4.5 mg/dL [facility] Blood 08/20/2022 12:3 0 AM EDT 08/20/2022 12:32 AM EDT Narrative Resulting Agency Comment Spec In Lab Richard Pascal MD CHEMISTRY ORDERABLES Performing Organization Address City/[facility] Co de Phone Number [facility] [place] [address] * Magnesium (08/20/2022 12:30 AM EDT) Magnesium 0.94 0.69 - 1.07 mmol/L [facility] Blood 08/20/2022 12:3 0 AM EDT 08/20/2022 12:32 AM EDT Narrative Resulting Agency Comment Spec In Lab Richard Pascal MD CHEMISTRY ORDERABLES Performing Organization Address [facility] Co de Phone Number [facility] [place] [address] * POCT Glucose (08/20/2022 12:27 AM EDT) Glucose, POC 177 65 - 199 mg/dL [facility] Comment: Supplemental ranges: <140 mg/dL before meals <180 mg/dL all other times of the day Blood 08/20/2022 12:2 7 AM EDT 08/20/2022 12:27 AM EDT Carlos Terry MD POINT OF CARE TEST O RDERABLES Performing Organization Address [facility] Co de Phone Number [facility] [place] [address] * (ABNORMAL) POCT Glucose (08/19/2022 11:34 PM EDT) Glucose, POC 200(H) 65 - 199 mg/dL [facility] Comment: Supplemental ranges: <140 mg/dL before meals <180 mg/dL all other times of the day Blood 08/19/2022 11:3 4 PM EDT 08/19/2022 11:34 PM EDT Carlos Terry MD POINT OF CARE TEST O GABRIELLA Performing Organization Address [facility] Co de Phone Number [facility] [place] [address] * (ABNORMAL) POCT Glucose (08/19/2022 10:32 PM EDT) [facility] Glucose, POC 200(H) 65 - 199 mg/dL [facility] Comment: Supplemental ranges: <140 mg/dL before meals <180 mg/dL all other times of the day Blood 08/19/2022 10:3 2 PM EDT 08/19/2022 10:32 PM EDT Carlos Terry MD POINT OF CARE TEST Chepe QUIROZ Performing Organization Address [facility] Co de Phone Number [facility] [place] [address] * MRI Brain wo Contrast (08/19/2022 10:15 [...] who have questions please contact the health animal care taker that requested your imaging first. ? Narrative [...] patients who have questions please contactthe health animal care taker that requested your imaging first. Carlos Terry MD IMG MRI ORDERABLES * POCT Glucose (08/19/2022 7:08 PM EDT) Glucose, POC 165 65 - 199 mg/dL [facility] Comment: Supplemental ranges: <140 mg/dL before meals <180 mg/dL all other times of the day Blood 08/19/2022 7:08 PM EDT 08/19/2022 7:08 PM EDT Carlos Terry MD POINT OF CARE TEST O RDERABLES [facility] [place] [id number] * POCT Glucose (08/19/2022 6:03 PM EDT) Glucose, POC 172 65 - 199 mg/dL [facility] Comment: Supplemental ranges: <140 mg/dL before meals <180 mg/dL all other times of the day Blood 08/19/2022 6:03 PM EDT 08/19/2022 6:03 PM EDT Carlos Terry MD POINT OF CARE TEST O RDERABLES [facility] [place] [address] * Blood culture (08/19/2022 5:20 PM EDT) Blood Culture No growth at 5 days. [facility] Blood 08/19/2022 5:20 PM EDT 08/19/2022 6:53 PM EDT Comment:RA Narrative Resulting Agency Comment Spec In Lab Carlos Terry MD MICROBIOLOGY - BLOOD ORDERABLES [facility] [place] [address] * POCT Glucose (08/19/2022 5:08 PM EDT) Glucose, POC 154 65 - 199 mg/dL [facility] Comment: Supplemental ranges: <140 mg/dL before meals <180 mg/dL all other times of the day Blood 08/19/2022 5:08 PM EDT 08/19/2022 5:08 PM EDT Carlos Terry MD POINT OF CARE TEST O RDERABLES [facility] [place] [address] * Place BEDSIDE PICC Line: Contact Vascular Access Page [phone] Is PICC procedure required PRIOR to patients discharge? No (08/19/2022 4:51 PM EDT) Narrative Carlos Arnold RN - 08/19/2022 4:51 PM EDT Carlos Arnold RN ? 08/19/2022 ??4:55 PM PICC/Midline Insertion Procedure Note Indications: Medication Administration This insertion was not to replace a malfunctioning catheter. This insertion was not due to a suspected line-associated infection. Location of Procedure: [facility] Risks and Benefits: The risks and [...] to the planned procedure. Hand Hygiene: The golf course laborer did perform hand hygiene prior to line insertion. Catheter type: PICC Lot number: [id number] Procedure Technique: Skin was prepped with chlorhexidine. [...] who have questions please contact the health animal care taker that requested your imaging first. ? Electronically signed by: Alan De Guzman MD, [facility] ([phone]), at 08/19/2022 4:39 PM Narrative 08/19/2022 4:39 [...] patients who have questions please contactthe health animal care taker that requested your imaging first. Electronically signed by: Alan De Guzman MD, [facility]([phone]), at 08/19/2022 4:39 PM Carlos Terry MD IMG DX ORDERABLES * POCT Glucose (08/19/2022 3:15 PM EDT) Glucose, POC 177 65 - 199 mg/dL [facility] Comment: Supplemental ranges: <140 mg/dL before meals <180 mg/dL all other times of the day Blood 08/19/2022 3:15 PM EDT 08/19/2022 3:15 PM EDT Carlos Terry MD POINT OF CARE TEST O RDERABLES [facility] [place] [address] * Lower Respiratory Culture Sputum Induced (08/19/2022 2:51 PM EDT) Lower Respiratory Culture Rare mixed bacterial morphotypes suggestive of normal upper respiratory wiley [facility] Gram Stain Many Neutrophils seen Few squamous epithelial cells seen No microorganisms seen. [facility] Sputum Induced 08/19/2022 2: 51 PM EDT 08/19/2022 3:47 PM EDT Narrative Resulting Agency Comment Spec In Lab Carlos Terry MD MICROBIOLOGY - GENER AL ORDERABLES Performing Organization Address City/[facility]/ZIP Co de Phone Number [facility] [address] * Lactate, whole blood, send to lab ([facility]/CG) (08/19/2022 2:45 PM EDT) Lactate WB 1.6 0.5 - 2.2 mmol/L [facility] Blood 08/19/2022 2:45 PM EDT 08/19/2022 2:58 PM EDT Narrative Resulting Agency Comment Spec In Lab Carlos Terry MD CHEMISTRY ORDERABLES Performing Organization Address [facility]/ZIP Co de Phone Number [facility] [place] [address] * (ABNORMAL) Urinalysis Microscopic Exam (08/19/2022 2:30 PM EDT) Pathologist [facility] [place] RBC, Urine 1 0 - 4 /HPF [facility] WBC, Urine 3 0 - 5 /HPF [facility] Bacteria, Urine Rare(A) None /HPF [facility] Budding Yeast, Urine Occasiona l(A) None /HPF [facility] Comment: Interpret results with caution, microscopic results are from suboptimal specimen volume Hyphae Yeast, Urine Occasiona l(A) None /HPF [facility] Squamous Epithelial Cells Raw Data, Urine 1 <=4 /HPF [facility] Hyaline Casts, Urine 2 0 - 2 /LPF [facility] Indwelling Catheter Urine 08/19/2022 2:30 PM EDT 08/19/2022 3:12 PM EDT Narrative Resulting Agency Comment Spec In Lab Neva Tomlin MD URINE ORDERABLES Performing Organization Address City/[facility]/ZIP Co de Phone Number [facility] [place] [address] * (ABNORMAL) Urinalysis with reflex Culture (08/19/2022 2:30 PM EDT) Glucose, Urine Dipstick 100(A) Negative mg/dL [facility] Protein, Urine Dipstick 30(A) Negative mg/dL [facility] Bilirubin, Urine Dipstick Negative Negative mg/dL [facility] Comment: Clinical correlation required for positive Urine Bilirubin results as false positive may occur with some drugs and drug related products. If a false positive is suspected a serum total bilirubin should be considered if clinically indicated. Urobilinogen, Urine Dipstick Normal Normal mg/dL [facility] pH, Urn (dipstick) 5.5 5.0 - 8.0 [facility] Blood, Urine Dipstick Large(A) Negative mg/dL [facility] Ketone, Urine Dipstick Negative Negative mg/dL [facility] Nitrite, Urine Dipstick Negative Negative [facility] Leukocytes, Urine Dipstick Trace(A) Negative mcL [facility] Appearance, Urine Dipstick Clear Clear [facility] Specific [place] Urine Automated 1.018 1.005 - 1.030 [facility] Color, Urine Dipstick Yellow Yellow [facility] Reflex to Culture No [facility] Indwelling Catheter Urine 08/19/2022 2:30 PM EDT 08/19/2022 3:12 PM EDT Narrative Resulting Agency Comment Spec In Lab Carlos Terry MD URINE ORDERABLES Performing Organization Address [facility] Co de Phone Number [facility] [place] [address] * Phosphorus (08/19/2022 1:45 PM EDT) Phosphorus 2.9 2.5 - 4.5 mg/dL [facility] Blood Venous Draw / Unknown 08/19/2022 1:45 PM EDT 08/19/2022 2:05 PM EDT Narrative Resulting Agency Comment Spec In Lab Neva Tomlin MD CHEMISTRY ORDERABLES Performing Organization Address [facility] Co de Phone Number [facility] [place] [address] * (ABNORMAL) Basic Metabolic Panel (non-fasting) (08/19/2022 1:45 PM EDT) Glucose 224(H) 65 - 199 mg/dL [facility] Comment:Diabetes: >=200 mg/d L plus symptoms Blood Urea Nitrogen 20(H) 8 - 18 mg/dL [facility] Creatinine 0.59(L) 0.70 - 1.20 mg/dL [facility] Sodium 145 135 - 145 mmol/L [facility] Potassium 4.1 3.5 - 5.0 mmol/L [facility] Comment: Please note: ??Patients with WBC >100,000 may have falsely elevated Potassium levels. ??For accurate Potassium quantification in these patients send serum separator tube (gold top) for subsequent determinations. ??Contact the Clinical Chemistry Laboratory if there are any questions. Chloride 106 98 - 107 mmol/L [facility] Carbon Dioxide 29 22 - 31 mmol/L [facility] Anion Gap 10 5 - 15 mmol/L [facility] Calcium 8.6 8.5 - 10.5 mg/dL [facility] Est Glomerular Filtration Rate 102 >=60 mL/min/1. 73 m?? [facility] Comment: This patient's estimated GFR was [...] In Lab Carlos Terry MD CHEMISTRY ORDERABLES [facility] [place] [address] * Blood culture (08/19/2022 1:30 PM EDT) Blood Culture No growth at 5 days. [facility] Blood 08/19/2022 1:30 PM EDT 08/19/2022 2:15 PM EDT Comment:L Hand Narrative Resulting Agency Comment Spec In Lab Carlos Terry MD MICROBIOLOGY - BLOOD ORDERABLES [facility] [place] [address] * XR Chest One View (08/19/2022 12:30 [...] who have questions please contact the health animal care taker that requested your imaging first. ? Electronically signed by: Alan De Guzman MD, [facility] ([phone]), at 08/19/2022 3:14 PM Narrative 08/19/2022 3:14 PM EDT EXAMINATION: XR CHEST ONE VIEW CLINICAL HISTORY: febrile, altered, leukocytosis TECHNIQUE: 1 view of the chest ; AP portable 20 degrees upright COMPARISON: Chest radiograph 08/16/2022 FINDINGS: ET tube tip measures 3.0 cm above consuelo. Enteric catheter descends below the diaphragm and below the [id number]. Interval removal of right IJ approach PA [...] catheter descends below the diaphragm and below [id number]. Interval removal of right IJ approach PA [...] patients who have questions please contactthe health animal care taker that requested your imaging first. Electronically signed by: Alan De Guzman MD, [facility]([phone]), at 08/19/2022 3:14 PM Carlos Terry MD IMG DX ORDERABLES * POCT Glucose (08/19/2022 11:35 AM EDT) Glucose, POC 186 65 - 199 mg/dL [facility] Comment: Supplemental ranges: <140 mg/dL before meals <180 mg/dL all other times of the day Blood 08/19/2022 11:3 5 AM EDT 08/19/2022 11:35 AM EDT Carlos Terry MD POINT OF CARE TEST O RDERABLES [facility] [place] [address] * ECHO LMTD W CONTRAST W LMTD [...] 1960 ? Height: 152 cm ? Account: [id number] Age: 62 yrs ? Weight: 73 kg Gender: Female ?BSA: 1.7 m2 Ordering Physician: CARLOS TERRY Referring Physician: NIURKA AYALA Performed By: Thu Croft RDCS Reason For Study: Shock Interpreting Fellow: Hang Moreno. Exam Location: [facility]. Interpretation Summary -Left ventricular systolic function is [...] been no significant change. Procedure Limited - 41688. Doppler - 64272. Color Doppler - 60015. Image enhancement Optison was used for left [...] Date: 0:47 AMBP: 110/57 mmHg Patient Location: [id number] HR: 110 : 1960 Height: 152 cm Account: [id number] Age: 62 yrs Weight: 73 kg Gender: Female BSA: 1.7 m2 Ordering Physician: CARLOS TERRY Referring Physician: NIURKA AYALA Performed By: Thu Croft RDCS Reason For Study: Shock Interpreting Fellow: Hang Moreno. Exam Location: [facility]. Interpretation Summary -Left ventricular systolic function is [...] has been no significantchange. Procedure Limited - 20114. Doppler - 83763. Color Doppler - 08747. Image enhancementOptison was used for left ventricular [...] Glucose, POC 189 65 - 199 mg/dL [facility] Comment: Supplemental ranges: <140 mg/dL before meals <180 mg/dL all other times of the day Blood 08/19/2022 9:49 AM EDT 08/19/2022 9:49 AM EDT Carlos Terry MD POINT OF CARE TEST O RDERABLES [facility] [place] [address] * (ABNORMAL) POCT Glucose (08/19/2022 7:57 AM EDT) Glucose, POC 229(H) 65 - 199 mg/dL [facility] Comment: Supplemental ranges: <140 mg/dL before meals <180 mg/dL all other times of the day Blood 08/19/2022 7:57 AM EDT 08/19/2022 7:57 AM EDT Carlos Terry MD POINT OF CARE TEST O RDERABLES [facility] [place] [address] * (ABNORMAL) POCT Glucose (08/19/2022 6:58 AM EDT) Glucose, POC 215(H) 65 - 199 mg/dL [facility] Comment: Supplemental ranges: <140 mg/dL before meals <180 mg/dL all other times of the day Blood 08/19/2022 6:58 AM EDT 08/19/2022 6:58 AM EDT Carlos Terry MD POINT OF CARE TEST O GABRIELLA Performing Organization Address City/[facility] Co de Phone Number [facility] [place] [address] * (ABNORMAL) BLOOD GAS 2 ARTERIAL (08/19/2022 5:07 AM EDT) pH, Arterial 7.54(H) 7.35 - 7.45 [facility] PCO2, Arterial 31(L) 35 - 45 mmHg [facility] PO2, Arterial 73(L) 85 - 104 mmHg [facility] Bicarbonate, Arterial 25.7 20.0 - 26.0 mmol/L [facility] Base Excess, Arterial 3.1(H) -3.0 - 3.0 mmol/L [facility] Hgb Blood Gas 9.3(L) 11.7 - 15.5 g/dL [facility] Oxyhemoglobin, Arterial 94.1 94.0 - 97.0 % [facility] Carboxyhemoglob in, Arterial 0.2 % [facility] Comment: Nonsmokers: 0.5-1.5% COHB Smokers: Variable, but usually less than 10% Toxic: 20-30% COHB Lethal: Greater than 60% COHB Methemoglobin, Arterial 0.9 <=1.5 % [facility] Na Whole Blood 142 135 - 145 mmol/L [facility] K Whole Blood 3.7 3.5 - 5.0 mmol/L [facility] Comment: Please note: Patients with WBC >100,000 may have falsely elevated Potassium levels. Contact the Clinical Chemistry Laboratory if there are any questions. ICa Whole Blood 1.14(L) 1.15 - 1.33 mmol/L [facility] Comment: Note: ??Total bilirubin higher than 20 mg/dL may lead to falsely low ionized calcium. CL Whole Blood 111(H) 98 - 107 mmol/L [facility] Gluc Whole Bld 178 65 - 199 mg/dL [facility] Comment:Diabetes: >=200 mg/d L plus symptoms. Lactate WB 1.2 0.5 - 2.2 mmol/L [facility] FIO2 Art 30 % [facility] PF Ratio Art 243 [facility] Blood 08/19/2022 5:07 AM EDT 08/19/2022 5:07 AM EDT Carlos Terry MD POINT OF CARE TEST O GABRIELLA Performing Organization Address City/[facility]/ZIP Co de Phone Number [facility] [place] [address] * POCT Glucose (08/19/2022 3:08 AM EDT) Glucose, POC 176 65 - 199 mg/dL [facility] Comment: Supplemental ranges: <140 mg/dL before meals <180 mg/dL all other times of the day Blood 08/19/2022 3:08 AM EDT 08/19/2022 3:08 AM EDT Carlos Terry MD POINT OF CARE TEST O GABRIELLA [facility] [place] [address] * CK (08/19/2022 1:20 AM EDT) Creatine Kinase 32 0 - 160 unit/L [facility] Blood Venous Draw / Unknown 08/19/2022 1:20 AM EDT 08/19/2022 1:26 AM EDT Narrative Resulting Agency Comment Spec In Lab Neva Tomlin [place] [address] * (ABNORMAL) Differential, Automated (08/19/2022 1:20 AM EDT) Neutrophil % 68.0 % [facility] Neutrophil Absolute 19.24(H) 1.70 - 6.10 x10(3)/mc L [facility] Lymph % 10.4 % [facility] Lymphocytes Abs 2.9 0.9 - 3.2 x10(3)/mc L [facility] Monocyte % 8.1 % [facility] Monocyte Abs 2.3(H) 0.3 - 0.9 x10(3)/mc L [facility] Eos % 0.4 % [facility] Eosinophils Abs 0.1 0.0 - 0.4 x10(3)/mc L [facility] Basophil % 0.6 % [facility] Baso Absolute 0.2(H) 0.0 - 0.1 x10(3)/mc L [facility] Immature Gran % 12.50 % [facility] Comment: Immature granulocytes(IG's)percentage and absolute count will include metamyelocytes, myelocytes, and promyelocytes. Blood smears from CBCs yielding IG's will be scanned manually for concordance. If this scan disagrees with the automated IG or if promyelocytes are noted, a manual differential will be performed. Immature Gran Absolute 3.52(H) 0.00 - 0.04 x10(3)/mc L [facility] Blood 08/19/2022 1:20 AM EDT 08/19/2022 1:25 AM EDT Narrative Resulting Agency Comment Spec In Lab Tyler Cobb MD HEMATOLOGY ORDERABLE S [facility] [place] [address] * (ABNORMAL) Hemogram (08/19/2022 1:20 AM EDT) White Blood Cell 28.3(H) 4.0 - 9.5 x10(3)/mc L [facility] Red Blood Cell 4.35 4.00 - 5.21 x10(6)/mc L [facility] Hemoglobin 8.7(L) 11.7 - 15.5 g/dL [facility] Hematocrit 27.9(L) 35.7 - 45.8 % [facility] Mean Cell Volume 64.1(L) 82.6 - 94.4 fL [facility] Mean Cell Hemoglobin 20.0(L) 27.1 - 32.0 pg [facility] Mean Cell Hemoglobin Concentration 31.2(L) 31.7 - 35.0 g/dL [facility] Platelet 301 145 - 357 x10(3)/mc L [facility] RDW Standard Deviation 63.6(H) 37.0 - 46.0 fL [facility] RDW coefficient of variation 29.2(H) 11.5 - 14.1 % [facility] Mean Platelet Volume Not Measured 7.6 - 12.9 fL [facility] NRBC% auto 1.0 % [facility] NRBC Absolute 0.290(H) 0.000 - 0.000 x10(3)/ L [facility] Blood 08/19/2022 1:20 AM EDT 08/19/2022 1:25 AM EDT Narrative Resulting Agency Comment Spec In Lab Tyler Cobb MD HEMATOLOGY ORDERABLE S Performing Organization Address City/State/[facility] Co de Phone Number [facility] [place] [address] * (ABNORMAL) Basic Metabolic Panel (non-fasting) (08/19/2022 1:20 AM EDT) Glucose 187 65 - 199 mg/dL [facility] Comment:Diabetes: >=200 mg/d L plus symptoms Blood Urea Nitrogen 18 8 - 18 mg/dL [facility] Creatinine 0.50(L) 0.70 - 1.20 mg/dL [facility] Sodium 142 135 - 145 mmol/L [facility] Potassium 3.8 3.5 - 5.0 mmol/L [facility] Comment: Please note: ??Patients with WBC >100,000 may have falsely elevated Potassium levels. ??For accurate Potassium quantification in these patients send serum separator tube (gold top) for subsequent determinations. ??Contact the Clinical Chemistry Laboratory if there are any questions. Chloride 108(H) 98 - 107 mmol/L [facility] Carbon Dioxide 25 22 - 31 mmol/L [facility] Anion Gap 9 5 - 15 mmol/L [facility] Calcium 8.4(L) 8.5 - 10.5 mg/dL [facility] Est Glomerular Filtration Rate 106 >=60 mL/min/1. 73 m?? [facility] Comment: This patient's estimated GFR was [...] Pascal MD CHEMISTRY ORDERABLES Performing Organization Address City/[facility] Co de Phone Number [facility] [place] [address] * (ABNORMAL) Phosphorus (08/19/2022 1:20 AM EDT) Phosphorus 1.4(Critic al) 2.5 - 4.5 mg/dL [facility] Comment:Called by: CORTNEY, Read back by: DIOMEDES LOCKHART, Date/Time:08/19/22 02:18. Blood 08/19/2022 1:20 AM EDT 08/19/2022 1:25 AM EDT Narrative Resulting Agency Comment Spec In Lab Richard Pascal MD CHEMISTRY ORDERABLES [facility] [place] [address] * Magnesium (08/19/2022 1:20 AM EDT) Magnesium 0.83 0.69 - 1.07 mmol/L [facility] Blood 08/19/2022 1:20 AM EDT 08/19/2022 1:25 AM EDT Narrative Resulting Agency Comment Spec In Lab Richard Pascal MD CHEMISTRY ORDERABLES Performing Organization Address City/[facility] Co de Phone Number [facility] [place] [address] * POCT Glucose (08/19/2022 1:19 AM EDT) Glucose, POC 169 65 - 199 mg/dL [facility] Comment: Supplemental ranges: <140 mg/dL before meals <180 mg/dL all other times of the day Blood 08/19/2022 1:19 AM EDT 08/19/2022 1:19 AM EDT Carlos Terry MD POINT OF CARE TEST O RDERABLES Performing Organization Address [facility] Co de Phone Number [facility] [place] [address] * POCT Glucose (08/18/2022 11:03 PM EDT) Glucose, POC 171 65 - 199 mg/dL [facility] Comment: Supplemental ranges: <140 mg/dL before meals <180 mg/dL all other times of the day Blood 08/18/2022 11:0 3 PM EDT 08/18/2022 11:03 PM EDT Carlos Terry MD POINT OF CARE TEST O RDERABLES Performing Organization Address City/[facility]/ZIP Co de Phone Number [facility] [place] [address] * POCT Glucose (08/18/2022 9:05 PM EDT) Glucose, POC 148 65 - 199 mg/dL [facility] Comment: Supplemental ranges: <140 mg/dL before meals <180 mg/dL all other times of the day Blood 08/18/2022 9:05 PM EDT 08/18/2022 9:05 PM EDT Carlos Terry MD POINT OF CARE TEST O GABRIELLA [facility] [place] [address] * POCT Glucose (08/18/2022 7:51 PM EDT) Glucose, POC 144 65 - 199 mg/dL [facility] Comment: Supplemental ranges: <140 mg/dL before meals <180 mg/dL all other times of the day Blood 08/18/2022 7:51 PM EDT 08/18/2022 7:51 PM EDT Carlos Terry MD POINT OF CARE TEST O GABRIELLA Performing Organization Address [facility] Co de Phone Number [facility] [place] [address] * POCT Glucose (08/18/2022 6:31 PM EDT) Glucose, POC 175 65 - 199 mg/dL [facility] Comment: Supplemental ranges: <140 mg/dL before meals <180 mg/dL all other times of the day Blood 08/18/2022 6:31 PM EDT 08/18/2022 6:31 PM EDT Carlos Terry MD POINT OF CARE TEST O HUGHERAREYMUNDO [facility] [place] [address] * POCT Glucose (08/18/2022 4:56 PM EDT) Glucose, POC 166 65 - 199 mg/dL [facility] Comment: Supplemental ranges: <140 mg/dL before meals <180 mg/dL all other times of the day Blood 08/18/2022 4:56 PM EDT 08/18/2022 4:56 PM EDT Carlos Terry MD POINT OF CARE TEST O GABRIELAL Performing Organization Address [facility] Co de Phone Number [facility] [place] [address] * (ABNORMAL) POCT Glucose (08/18/2022 3:35 PM EDT) [facility] Glucose, POC 207(H) 65 - 199 mg/dL [facility] Comment: Supplemental ranges: <140 mg/dL before meals <180 mg/dL all other times of the day Blood 08/18/2022 3:35 PM EDT 08/18/2022 3:35 PM EDT Carlos Terry MD POINT OF CARE TEST O GABRIELLA Performing Organization Address [facility] Co de Phone Number [facility] [place] [address] * CT Head wo Contrast (Generic) (08/18/2022 [...] who have questions please contact the health animal care taker that requested your imaging first. ? Electronically signed by: Antonio Jordan MD, [facility] ([phone]), at 08/18/2022 3:18 PM Narrative 08/18/2022 3:18 [...] patients who have questions please contactthe health animal care taker that requested your imaging first. Electronically signed by: [facility]([phone]), at 08/18/2022 3:18 PM Carlos Terry MD IMG CT ORDERABLES * POCT Glucose (08/18/2022 2:38 PM EDT) Glucose, POC 194 65 - 199 mg/dL [facility] Comment: Supplemental ranges: <140 mg/dL before meals <180 mg/dL all other times of the day Blood 08/18/2022 2:38 PM EDT 08/18/2022 2:38 PM EDT Carlos Terry MD POINT OF CARE TEST O RDERABLES [facility] [place] [address] * EEG ROUTINE (08/18/2022 2:19 PM EDT) Narrative Tyree Martin MD - 08/18/2022 2:19 PM EDT Tyree Martin MD ? 08/18/2022 ??8:46 PM [facility] Department of Neurology Inpatient Routine EEG Report [...] bipolar, DM, EtOH, esophagitis, who presented to [facility] 3 days ago after being found unresponsive at home. ??Patient found to have likely pneumonia +/- aspiration, newly reduced EF. ??Patient not on any sedation, not waking up. MEDICATIONS: -Depakote 500 mg x1 dose -Fentanyl gtt stopped 08/17 -Propofol gtt stopped 08/17 PRIOR EEG(s): -N/A METHODS: A 21 channel digitized electroencephalogram was performed in the [facility] Clinical [facility]physiology Laboratory. The 10/20 international system of electrode placement was used and bipolar and referential electrode montages were recorded. ??In addition to EEG the patient was monitored for EKG and lateral/vertical eye movements. Video was recorded during the session. UNIFORM CAP OPERATOR'S REPORT: Performed by: Glendy MARCUS Patient was [...] final interpretation as written. Tyree Martin MD [facility] Department of Neurology Carlos Terry MD NEUROLOGY ORDERABLES * POCT Glucose (08/18/2022 1:53 PM EDT) Glucose, POC 174 65 - 199 mg/dL [facility] Comment: Supplemental ranges: <140 mg/dL before meals <180 mg/dL all other times of the day Blood 08/18/2022 1:53 PM EDT 08/18/2022 1:53 PM EDT Carlos Terry MD POINT OF CARE TEST O GABRIELLA Performing Organization Address City/[facility] Co de Phone Number [facility] [place] [address] * POCT Glucose (08/18/2022 12:30 PM EDT) Glucose, POC 129 65 - 199 mg/dL [facility] Comment: Supplemental ranges: <140 mg/dL before meals <180 mg/dL all other times of the day Blood 08/18/2022 12:3 0 PM EDT 08/18/2022 12:30 PM EDT Carlos Terry MD POINT OF CARE TEST O GABRIELLA Performing Organization Address [facility] Co de Phone Number [facility] [place] [address] * POCT Glucose (08/18/2022 11:12 AM EDT) Glucose, POC 113 65 - 199 mg/dL [facility] Comment: Supplemental ranges: <140 mg/dL before meals <180 mg/dL all other times of the day Blood 08/18/2022 11:1 2 AM EDT 08/18/2022 11:12 AM EDT Carlos Terry MD POINT OF CARE TEST O GABRIELLA Performing Organization Address [facility] Co de Phone Number [facility] [place] [address] * POCT Glucose (08/18/2022 10:37 AM EDT) Glucose, POC 121 65 - 199 mg/dL [facility] Comment: Supplemental ranges: <140 mg/dL before meals <180 mg/dL all other times of the day Blood 08/18/2022 10:3 7 AM EDT 08/18/2022 10:37 AM EDT Carlos Terry MD POINT OF CARE TEST O RDERABLES Performing Organization Address [facility] Co de Phone Number [facility] [place] [address] * Legionella Urinary Antigen (08/18/2022 10:13 AM EDT) Legionella Urinary Antigen Negative Negative [facility] Comment: A negative Legionella Urinary [...] - GENER AL ORDERABLES Performing Organization Address [facility] Co de Phone Number [facility] [place] [address] * POCT Glucose (08/18/2022 7:36 AM EDT) Glucose, POC 175 65 - 199 mg/dL [facility] Comment: Supplemental ranges: <140 mg/dL before meals <180 mg/dL all other times of the day Blood 08/18/2022 7:36 AM EDT 08/18/2022 7:36 AM EDT Carlos Terry MD POINT OF CARE TEST O RDERABLES Performing Organization Address [facility] Co de Phone Number [facility] [place] [address] * (ABNORMAL) BLOOD GAS 2 ARTERIAL (08/18/2022 6:15 AM EDT) pH, Arterial 7.51(H) 7.35 - 7.45 [facility] PCO2, Arterial 30(L) 35 - 45 mmHg [facility] PO2, Arterial 62(L) 85 - 104 mmHg [facility] Bicarbonate, Arterial 23.2 20.0 - 26.0 mmol/L [facility] Base Excess, Arterial 0.2 -3.0 - 3.0 mmol/L [facility] Hgb Blood Gas 10.2(L) 11.7 - 15.5 g/dL [facility] Oxyhemoglobin, Arterial 91.5(L) 94.0 - 97.0 % [facility] Carboxyhemoglob in, Arterial 0.5 % [facility] Comment: Nonsmokers: 0.5-1.5% COHB Smokers: Variable, but usually less than 10% Toxic: 20-30% COHB Lethal: Greater than 60% COHB Methemoglobin, Arterial 0.7 <=1.5 % [facility] Na Whole Blood 136 135 - 145 mmol/L [facility] K Whole Blood 3.7 3.5 - 5.0 mmol/L [facility] Comment: Please note: Patients with WBC >100,000 may have falsely elevated Potassium levels. Contact the Clinical Chemistry Laboratory if there are any questions. ICa Whole Blood 1.16 1.15 - 1.33 mmol/L [facility] Comment: Note: ??Total bilirubin higher than 20 mg/dL may lead to falsely low ionized calcium. CL Whole Blood 104 98 - 107 mmol/L [facility] Gluc Whole Bld 219(H) 65 - 199 mg/dL [facility] Comment:Diabetes: >=200 mg/d L plus symptoms. Lactate WB 1.6 0.5 - 2.2 mmol/L [facility] FIO2 Art 30 % [facility] PF Ratio Art 207 [facility] Blood 08/18/2022 6:15 AM EDT 08/18/2022 6:15 AM EDT Carlos Terry MD POINT OF CARE TEST O RDERABLES [facility] [place] [address] * POCT Glucose (08/18/2022 2:31 AM EDT) Glucose, POC 176 65 - 199 mg/dL [facility] Comment: Supplemental ranges: <140 mg/dL before meals <180 mg/dL all other times of the day Blood 08/18/2022 2:31 AM EDT 08/18/2022 2:31 AM EDT Carlos Terry MD POINT OF CARE TEST O RDERABLES Performing Organization Address City/[facility]/[place] [address] * Scan, Peripheral Blood (08/18/2022 2:30 AM EDT) Plat estimate Normal [facility] RBC Morphology Abnormal [facility] Microcyte 6-10 /HPF [facility] Hypochromia Moderate [facility] Ovalocytes 1-5 /HPF [facility] [place] Cells 6-10 /HPF [facility] Plat, Giant Less than 1 /HPF [facility] Blood 08/18/2022 2:30 AM EDT 08/18/2022 2:36 AM EDT Narrative Resulting Agency Comment Spec In Lab Tyler Cobb MD HEMATOLOGY ORDERABLE S Performing Organization Address [facility] Co de Phone Number [facility] [place] [address] * (ABNORMAL) Differential, Automated (08/18/2022 2:30 AM EDT) Neutrophil % 69.7 % [facility] Neutrophil Absolute 16.91(H) 1.70 - 6.10 x10(3)/mc L [facility] Lymph % 8.7 % [facility] Lymphocytes Abs 2.1 0.9 - 3.2 x10(3)/mc L [facility] Monocyte % 8.4 % [facility] Monocyte Abs 2.0(H) 0.3 - 0.9 x10(3)/mc L [facility] Eos % 0.5 % [facility] Eosinophils Abs 0.1 0.0 - 0.4 x10(3)/mc L [facility] Basophil % 0.7 % [facility] Baso Absolute 0.2(H) 0.0 - 0.1 x10(3)/mc L [facility] Immature Gran % 12.00 % [facility] Comment: Immature granulocytes(IG's)percentage and absolute count will include metamyelocytes, myelocytes, and promyelocytes. Blood smears from CBCs yielding IG's will be scanned manually for concordance. If this scan disagrees with the automated IG or if promyelocytes are noted, a manual differential will be performed. Immature Gran Absolute 2.90(H) 0.00 - 0.04 x10(3)/mc L [facility] Blood 08/18/2022 2:30 AM EDT 08/18/2022 2:36 AM EDT Narrative Resulting Agency Comment Spec In Lab Tyler Cobb MD HEMATOLOGY ORDERABLE S [facility] [place] [address] * (ABNORMAL) Hemogram (08/18/2022 2:30 AM EDT) White Blood Cell 24.3(H) 4.0 - 9.5 x10(3)/mc L [facility] Red Blood Cell 4.39 4.00 - 5.21 x10(6)/mc L [facility] Hemoglobin 9.0(L) 11.7 - 15.5 g/dL [facility] Hematocrit 28.2(L) 35.7 - 45.8 % [facility] Mean Cell Volume 64.2(L) 82.6 - 94.4 fL [facility] Mean Cell Hemoglobin 20.5(L) 27.1 - 32.0 pg [facility] Mean Cell Hemoglobin Concentration 31.9 31.7 - 35.0 g/dL [facility] Platelet 226 145 - 357 x10(3)/mc L [facility] RDW Standard Deviation 63.0(H) 37.0 - 46.0 fL [facility] RDW coefficient of variation 29.1(H) 11.5 - 14.1 % [facility] Mean Platelet Volume Not Measured 7.6 - 12.9 fL [facility] NRBC% auto 0.2 % [facility] NRBC Absolute 0.050(H) 0.000 - 0.000 x10(3)/mc L [facility] Blood 08/18/2022 2:30 AM EDT 08/18/2022 2:36 AM EDT Narrative Resulting Agency Comment Spec In Lab Tyler Cobb MD HEMATOLOGY ORDERABLE S [facility] [place] [address] * (ABNORMAL) Basic Metabolic Panel (non-fasting) (08/18/2022 2:30 AM EDT) Glucose 178 65 - 199 mg/dL [facility] Comment:Diabetes: >=200 mg/d L plus symptoms Blood Urea Nitrogen 25(H) 8 - 18 mg/dL [facility] Creatinine 0.67(L) 0.70 - 1.20 mg/dL [facility] Sodium 139 135 - 145 mmol/L [facility] Potassium 4.2 3.5 - 5.0 mmol/L [facility] Comment: Please note: ??Patients with WBC >100,000 may have falsely elevated Potassium levels. ??For accurate Potassium quantification in these patients send serum separator tube (gold top) for subsequent determinations. ??Contact the Clinical Chemistry Laboratory if there are any questions. Chloride 104 98 - 107 mmol/L [facility] Carbon Dioxide 25 22 - 31 mmol/L [facility] Anion Gap 10 5 - 15 mmol/L [facility] Calcium 8.4(L) 8.5 - 10.5 mg/dL [facility] Est Glomerular Filtration Rate 99 >=60 mL/min/1. 73 m?? [facility] Comment: This patient's estimated GFR was [...] Pascal MD CHEMISTRY ORDERABLES Performing Organization Address [facility] Co de Phone Number [facility] [place] [address] * (ABNORMAL) Phosphorus (08/18/2022 2:30 AM EDT) Phosphorus 1.2(Critic al) 2.5 - 4.5 mg/dL [facility] Comment:Called by: IRMA, Read back by: Conner Kelsey, Date/Time:08/18/22 03:39. Blood 08/18/2022 2:30 AM EDT 08/18/2022 2:36 AM EDT Narrative Resulting Agency Comment Spec In Lab Richard Pascal MD CHEMISTRY ORDERABLES Performing Organization Address [facility] Co de Phone Number [facility] [place] [address] * Magnesium (08/18/2022 2:30 AM EDT) Magnesium 1.02 0.69 - 1.07 mmol/L [facility] Blood 08/18/2022 2:30 AM EDT 08/18/2022 2:36 AM EDT Narrative Resulting Agency Comment Spec In Lab Richard Pascal MD CHEMISTRY ORDERABLES Performing Organization Address [facility] Co de Phone Number [facility] [place] [address] * POCT Glucose (08/18/2022 1:15 AM EDT) Glucose, POC 168 65 - 199 mg/dL [facility] Comment: Supplemental ranges: <140 mg/dL before meals <180 mg/dL all other times of the day Blood 08/18/2022 1:15 AM EDT 08/18/2022 1:15 AM EDT Carlos Terry MD POINT OF CARE TEST O RDERABLES Performing Organization Address [facility] Co de Phone Number [facility] [place] [address] * POCT Glucose (08/17/2022 11:04 PM EDT) Glucose, POC 188 65 - 199 mg/dL [facility] Comment: Supplemental ranges: <140 mg/dL before meals <180 mg/dL all other times of the day Blood 08/17/2022 11:0 4 PM EDT 08/17/2022 11:04 PM EDT Carlos Terry MD POINT OF CARE TEST O RDERAREYMUNDO Performing Organization Address [facility] Co de Phone Number [facility] [place] [address] * Potassium (08/17/2022 9:29 PM EDT) Potassium 3.5 3.5 - 5.0 mmol/L [facility] Comment: Please note: ??Patients with WBC [...] Pascal MD CHEMISTRY ORDERABLES Performing Organization Address [facility] Co de Phone Number [facility] [place] [address] * POCT Glucose (08/17/2022 8:06 PM EDT) Glucose, POC 161 65 - 199 mg/dL [facility] Comment: Supplemental ranges: <140 mg/dL before meals <180 mg/dL all other times of the day Blood 08/17/2022 8:06 PM EDT 08/17/2022 8:06 PM EDT Carlos Terry MD POINT OF CARE TEST O RDERABLES [facility] [place] [address] * POCT Glucose (08/17/2022 6:47 PM EDT) Glucose, POC 169 65 - 199 mg/dL [facility] Comment: Supplemental ranges: <140 mg/dL before meals <180 mg/dL all other times of the day Blood 08/17/2022 6:47 PM EDT 08/17/2022 6:47 PM EDT Carlos Terry MD POINT OF CARE TEST O RDERABLES Performing Organization Address [facility] Co de Phone Number [facility] [place] [address] * POCT Glucose (08/17/2022 5:42 PM EDT) Glucose, POC 189 65 - 199 mg/dL [facility] Comment: Supplemental ranges: <140 mg/dL before meals <180 mg/dL all other times of the day Blood 08/17/2022 5:42 PM EDT 08/17/2022 5:42 PM EDT Carlos Terry MD POINT OF CARE TEST O RDERABLES Performing Organization Address City/[facility]/ZIP Co de Phone Number [facility] [place] [address] * POCT Glucose (08/17/2022 4:44 PM EDT) Glucose, POC 195 65 - 199 mg/dL [facility] Comment: Supplemental ranges: <140 mg/dL before meals <180 mg/dL all other times of the day Blood 08/17/2022 4:44 PM EDT 08/17/2022 4:44 PM EDT Carlos Terry MD POINT OF CARE TEST O RDERABLES [facility] [place] [address] * Potassium (08/17/2022 3:15 PM EDT) Potassium 3.6 3.5 - 5.0 mmol/L [facility] Comment: Please note: ??Patients with WBC [...] Pascal MD CHEMISTRY ORDERABLES Performing Organization Address [facility] de Phone Number [facility] [place] [address] * Vancomycin Level, Random (08/17/2022 3:15 PM EDT) Vancomycin, Random 19.2 mg/L [facility] Comment: This level is for determination of the patient's vancomycin vjcp-slapn-nhp-curve (AUC) value. Contact the inpatient pharmacy for interpretation. Blood 08/17/2022 3:15 PM EDT 08/17/2022 3:25 PM EDT Carlos Terry MD CHEMISTRY ORDERABLES Performing Organization Address [facility] Co de Phone Number [facility] [place] [address] * POCT Glucose (08/17/2022 3:10 PM EDT) Glucose, POC 140 65 - 199 mg/dL [facility] Comment: Supplemental ranges: <140 mg/dL before meals <180 mg/dL all other times of the day Blood 08/17/2022 3:10 PM EDT 08/17/2022 3:10 PM EDT Carlos Terry MD POINT OF CARE TEST O RDERABLES Performing Organization Address [facility] Co de Phone Number [facility] [place] [address] * POCT Glucose (08/17/2022 1:41 PM EDT) Glucose, POC 130 65 - 199 mg/dL [facility] Comment: Supplemental ranges: <140 mg/dL before meals <180 mg/dL all other times of the day Blood 08/17/2022 1:41 PM EDT 08/17/2022 1:41 PM EDT Carlos Terry MD POINT OF CARE TEST O RDERABLES Performing Organization Address [facility] Co de Phone Number [facility] [place] [address] * XR Abdomen 1 view (Generic) (08/17/2022 [...] who have questions please contact the health animal care taker that requested your imaging first. ? Narrative [...] patients who have questions please contactthe health animal care taker that requested your imaging first. Carlos Terry MD IMG DX ORDERABLES * POCT Glucose (08/17/2022 11:31 AM EDT) [facility] Glucose, POC 146 65 - 199 mg/dL [facility] Comment: Supplemental ranges: <140 mg/dL before meals <180 mg/dL all other times of the day Blood 08/17/2022 11:3 1 AM EDT 08/17/2022 11:31 AM EDT Carlos Terry MD POINT OF CARE TEST O RDERAREYMUNDO Performing Organization Address City/[facility]/ZIP Co de Phone Number [facility] [place] [address] * POCT Glucose (08/17/2022 9:27 AM EDT) Glucose, POC 170 65 - 199 mg/dL [facility] Comment: Supplemental ranges: <140 mg/dL before meals <180 mg/dL all other times of the day Blood 08/17/2022 9:27 AM EDT 08/17/2022 9:27 AM EDT Carlos Terry MD POINT OF CARE TEST O GABRIELLA Performing Organization Address [facility] Co de Phone Number [facility] [place] [address] * POCT Glucose (08/17/2022 7:50 AM EDT) Glucose, POC 158 65 - 199 mg/dL [facility] Comment: Supplemental ranges: <140 mg/dL before meals <180 mg/dL all other times of the day Blood 08/17/2022 7:50 AM EDT 08/17/2022 7:50 AM EDT Carlos Terry MD POINT OF CARE TEST O RDERAREYMUNDO Performing Organization Address City/State/[facility] Co de Phone Number [facility] [place] [address] * POCT Glucose (08/17/2022 6:53 AM EDT) Glucose, POC 155 65 - 199 mg/dL [facility] Comment: Supplemental ranges: <140 mg/dL before meals <180 mg/dL all other times of the day Blood 08/17/2022 6:53 AM EDT 08/17/2022 6:53 AM EDT Carlos Terry MD POINT OF CARE TEST O GABRIELLA Performing Organization Address City/[facility]/ZIP Co de Phone Number [facility] [place] [address] * POCT Glucose (08/17/2022 6:18 AM EDT) Glucose, POC 166 65 - 199 mg/dL [facility] Comment: Supplemental ranges: <140 mg/dL before meals <180 mg/dL all other times of the day Blood 08/17/2022 6:18 AM EDT 08/17/2022 6:18 AM EDT Carlos Terry MD POINT OF CARE TEST O GABRIELLA Performing Organization Address [facility] Co de Phone Number [facility] [place] [address] * Heparin (unfractionated) Level (08/17/2022 6:15 AM EDT) UF Heparin 0.48 IU/mL [facility] Comment: Heparin (anti-Xa) levels [...] MD HEMATOLOGY ORDERABLE S Performing Organization Address City/[facility]/ZIP Co de Phone Number [facility] [place] [address] * POCT Glucose (08/17/2022 5:20 AM EDT) Glucose, POC 165 65 - 199 mg/dL [facility] Comment: Supplemental ranges: <140 mg/dL before meals <180 mg/dL all other times of the day Blood 08/17/2022 5:20 AM EDT 08/17/2022 5:20 AM EDT Carlso Terry MD POINT OF CARE TEST O RDERABLES Performing Organization Address [facility] Co de Phone Number [facility] [place] [address] * POCT Glucose (08/17/2022 4:19 AM EDT) Glucose, POC 128 65 - 199 mg/dL [facility] Comment: Supplemental ranges: <140 mg/dL before meals <180 mg/dL all other times of the day Blood 08/17/2022 4:19 AM EDT 08/17/2022 4:19 AM EDT Carlos Terry MD POINT OF CARE TEST O RDERABLES Performing Organization Address [facility] Co de Phone Number [facility] [place] [address] * POCT Glucose (08/17/2022 2:51 AM EDT) Glucose, POC 129 65 - 199 mg/dL [facility] Comment: Supplemental ranges: <140 mg/dL before meals <180 mg/dL all other times of the day Blood 08/17/2022 2:51 AM EDT 08/17/2022 2:51 AM EDT Carlos Terry MD POINT OF CARE TEST O RDERAREYMUNDO [facility] [place] [address] * POCT Glucose (08/17/2022 2:05 AM EDT) Glucose, POC 144 65 - 199 mg/dL [facility] Comment: Supplemental ranges: <140 mg/dL before meals <180 mg/dL all other times of the day Blood 08/17/2022 2:05 AM EDT 08/17/2022 2:05 AM EDT Carlos Trery MD POINT OF CARE TEST O RDERABLES [facility] [place] [address] * POCT Glucose (08/17/2022 1:36 AM EDT) Glucose, POC 147 65 - 199 mg/dL [facility] Comment: Supplemental ranges: <140 mg/dL before meals <180 mg/dL all other times of the day Blood 08/17/2022 1:36 AM EDT 08/17/2022 1:36 AM EDT Carlos Terry MD POINT OF CARE TEST O RDERABLES Performing Organization Address City/[facility]/ZIP Co de Phone Number [facility] [facility] [place] [address] * POCT Glucose (08/17/2022 1:07 AM EDT) Glucose, POC 134 65 - 199 mg/dL [facility] Comment: Supplemental ranges: <140 mg/dL before meals <180 mg/dL all other times of the day Blood 08/17/2022 1:07 AM EDT 08/17/2022 1:07 AM EDT Carlos Terry MD POINT OF CARE TEST O RDERABLES [facility] [place] [address] * (ABNORMAL) Basic Metabolic Panel (non-fasting) (08/17/2022 12:45 AM EDT) Glucose 157 65 - 199 mg/dL [facility] Comment:Diabetes: >=200 mg/d L plus symptoms Blood Urea Nitrogen 36(H) 8 - 18 mg/dL [facility] Creatinine 1.10 0.70 - 1.20 mg/dL [facility] Sodium 136 135 - 145 mmol/L [facility] Potassium Not Perf 3.5 - 5.0 [facility] Comment: Duplicate order Please note: ??Patients with WBC >100,000 may have falsely elevated Potassium levels. ??For accurate Potassium quantification in these patients send serum separator tube (gold top) for subsequent determinations. ??Contact the Clinical Chemistry Laboratory if there are any questions. Chloride 101 98 - 107 mmol/L [facility] Carbon Dioxide Not Perf 22 - 31 [facility] Comment:Add-on request. Samp le too old to perform test. Anion Gap Unable to Calculate 5 - 15 mmol/L [facility] Calcium 8.3(L) 8.5 - 10.5 mg/dL [facility] Est Glomerular Filtration Rate 57(L) >=60 mL/min/1 .73 m?? [facility] Comment: This patient's estimated GFR was [...] In Lab Tyler Cobb MD CHEMISTRY ORDERABLES [facility] [place] [address] * Potassium (08/17/2022 12:45 AM EDT) Potassium 4.6 3.5 - 5.0 mmol/L [facility] Comment: Please note: ??Patients with WBC [...] In Lab Tyler Cobb MD CHEMISTRY ORDERABLES [facility] [place] [address] * (ABNORMAL) Differential, Automated (08/17/2022 12:45 AM EDT) [facility] Neutrophil % 75.1 % [facility] Neutrophil Absolute 13.95(H) 1.70 - 6.10 x10(3)/mc L [facility] Lymph % 9.5 % [facility] Lymphocytes Abs 1.8 0.9 - 3.2 x10(3)/mc L [facility] Monocyte % 9.5 % [facility] Monocyte Abs 1.8(H) 0.3 - 0.9 x10(3)/mc L [facility] Eos % 0.5 % [facility] Eosinophils Abs 0.1 0.0 - 0.4 x10(3)/mc L [facility] Basophil % 0.4 % [facility] Baso Absolute 0.1 0.0 - 0.1 x10(3)/mc L [facility] Immature Gran % 5.00 % [facility] Comment: Immature granulocytes(IG's)percentage and absolute count will include metamyelocytes, myelocytes, and promyelocytes. Blood smears from CBCs yielding IG's will be scanned manually for concordance. If this scan disagrees with the automated IG or if promyelocytes are noted, a manual differential will be performed. Immature Gran Absolute 0.93(H) 0.00 - 0.04 x10(3)/mc L [facility] Blood 08/17/2022 12:4 5 AM EDT 08/17/2022 12:57 AM EDT Narrative Resulting Agency Comment Spec In Lab Tyler Cobb MD HEMATOLOGY ORDERABLE S [facility] [place] [address] * (ABNORMAL) Hemogram (08/17/2022 12:45 AM EDT) White Blood Cell 18.6(H) 4.0 - 9.5 x10(3)/mc L [facility] Red Blood Cell 4.00 4.00 - 5.21 x10(6)/mc L [facility] Hemoglobin 8.2(L) 11.7 - 15.5 g/dL [facility] Hematocrit 26.0(L) 35.7 - 45.8 % [facility] Mean Cell Volume 65.0(L) 82.6 - 94.4 fL [facility] Mean Cell Hemoglobin 20.5(L) 27.1 - 32.0 pg [facility] Mean Cell Hemoglobin Concentration 31.5(L) 31.7 - 35.0 g/dL [facility] Platelet 176 145 - 357 x10(3)/mc L [facility] RDW Standard Deviation 64.0(H) 37.0 - 46.0 fL [facility] RDW coefficient of variation 29.0(H) 11.5 - 14.1 % [facility] Mean Platelet Volume Not Measured 7.6 - 12.9 fL [facility] NRBC% auto 0.1 % [facility] NRBC Absolute 0.020(H) 0.000 - 0.000 x10(3)/mc L [facility] Blood 08/17/2022 12:4 5 AM EDT 08/17/2022 12:57 AM EDT Narrative Resulting Agency Comment Spec In Lab Tyler Cobb MD HEMATOLOGY ORDERABLE S [facility] [place] [address] * Heparin (unfractionated) Level (08/17/2022 12:45 AM EDT) Pathologist [facility] [facility]F Heparin 0.19 IU/mL [facility] Comment: Heparin (anti-Xa) levels [...] Lab Carlos Terry MD HEMATOLOGY ORDERABLE S [facility] [place] [address] * (ABNORMAL) Phosphorus (08/17/2022 12:45 AM EDT) [facility] Phosphorus 2.2(L) 2.5 - 4.5 mg/dL [facility] Blood 08/17/2022 12:4 5 AM EDT 08/17/2022 12:57 AM EDT Narrative Resulting Agency Comment Spec In Lab Richard Pascal MD CHEMISTRY ORDERABLES Performing Organization Address City/[facility]/ZIP Co de Phone Number [facility] [place] [address] * Magnesium (08/17/2022 12:45 AM EDT) [facility] Magnesium 0.89 0.69 - 1.07 mmol/L [facility] Blood 08/17/2022 12:4 5 AM EDT 08/17/2022 12:57 AM EDT Narrative Resulting Agency Comment Spec In Lab Richard Pascal MD CHEMISTRY ORDERABLES Performing Organization Address [facility] Co de Phone Number [facility] [place] [address] * POCT Glucose (08/17/2022 12:02 AM EDT) Glucose, POC 147 65 - 199 mg/dL [facility] Comment: Supplemental ranges: <140 mg/dL before meals <180 mg/dL all other times of the day Blood 08/17/2022 12:0 2 AM EDT 08/17/2022 12:02 AM EDT Carlos Terry MD POINT OF CARE TEST O RDERABLES Performing Organization Address [facility] Co de Phone Number [facility] [place] [address] * POCT Glucose (08/16/2022 11:13 PM EDT) Glucose, POC 154 65 - 199 mg/dL [facility] Comment: Supplemental ranges: <140 mg/dL before meals <180 mg/dL all other times of the day Blood 08/16/2022 11:1 3 PM EDT 08/16/2022 11:13 PM EDT Carlos Terry MD POINT OF CARE TEST O RDERABLES Performing Organization Address [facility] Co de Phone Number [facility] [place] [address] * CT Head wo Contrast (Generic) (08/16/2022 [...] who have questions please contact the health animal care taker that requested your imaging first. ? Electronically signed by: Moustapha Correa MD, [facility] ([phone]), at 08/16/2022 11:19 PM Narrative 08/16/2022 11:19 [...] patients who have questions please contactthe health animal care taker that requested your imaging first. Electronically signed by: Moustapha Correa MD, [facility]([phone]), at 08/16/2022 11:19 PM Carlos Terry MD IMG CT ORDERABLES * POCT Glucose (08/16/2022 10:12 PM EDT) Glucose, POC 184 65 - 199 mg/dL [facility] Comment: Supplemental ranges: <140 mg/dL before meals <180 mg/dL all other times of the day Blood 08/16/2022 10:1 2 PM EDT 08/16/2022 10:12 PM EDT Carlos Terry MD POINT OF CARE TEST O RDERABLES [facility] [place] [address] * POCT Glucose (08/16/2022 9:23 PM EDT) Glucose, POC 183 65 - 199 mg/dL [facility] Comment: Supplemental ranges: <140 mg/dL before meals <180 mg/dL all other times of the day Blood 08/16/2022 9:23 PM EDT 08/16/2022 9:23 PM EDT Carlos Terry MD POINT OF CARE TEST O RDERABLES Performing Organization Address City/State/[facility] Co de Phone Number [facility] [place] [address] * (ABNORMAL) Coox2 (08/16/2022 8:12 PM EDT) pO2, Coox 29 mmHg [facility] Hgb Blood Gas 9.3(L) 11.7 - 15.5 g/dL [facility] Oxyhemoglobin, Coox 56.6 % [facility] Carboxyhemoglo bin, Coox 0.2 % [facility] Comment: Nonsmokers: 0.5-1.5% COHB Smokers: Variable, but usually less than 10% Toxic: 20-30% COHB Lethal: Greater than 60% COHB Methemoglobin, Coox 1.3 <=1.5 % [facility] Source Coox Mixed Venous [facility] Blood 08/16/2022 8:12 PM EDT 08/16/2022 8:12 PM EDT Carlos Terry MD POINT OF CARE TEST O RDERABLES [facility] [place] [address] * (ABNORMAL) BLOOD GAS 2 ARTERIAL (08/16/2022 8:09 PM EDT) pH, Arterial 7.48(H) 7.35 - 7.45 [facility] PCO2, Arterial 34(L) 35 - 45 mmHg [facility] PO2, Arterial 78(L) 85 - 104 mmHg [facility] Bicarbonate, Arterial 25.0 20.0 - 26.0 mmol/L [facility] Base Excess, Arterial 1.5 -3.0 - 3.0 mmol/L [facility] Hgb Blood Gas 9.4(L) 11.7 - 15.5 g/dL [facility] Oxyhemoglobin, Arterial 94.2 94.0 - 97.0 % [facility] Carboxyhemoglob in, Arterial 0.1 % [facility] Comment: Nonsmokers: 0.5-1.5% COHB Smokers: Variable, but usually less than 10% Toxic: 20-30% COHB Lethal: Greater than 60% COHB Methemoglobin, Arterial 0.9 <=1.5 % [facility] Na Whole Blood 133(L) 135 - 145 mmol/L [facility] K Whole Blood 4.6 3.5 - 5.0 mmol/L [facility] Comment: Please note: Patients with WBC >100,000 may have falsely elevated Potassium levels. Contact the Clinical Chemistry Laboratory if there are any questions. ICa Whole Blood 1.14(L) 1.15 - 1.33 mmol/L [facility] Comment: Note: ??Total bilirubin higher than 20 mg/dL may lead to falsely low ionized calcium. CL Whole Blood 102 98 - 107 mmol/L [facility] Gluc Whole Bld 180 65 - 199 mg/dL [facility] Comment:Diabetes: >=200 mg/d L plus symptoms. Lactate WB 1.5 0.5 - 2.2 mmol/L [facility] FIO2 Art 30 % [facility] PF Ratio Art 260 [facility] Blood 08/16/2022 8:09 PM EDT 08/16/2022 8:09 PM EDT Carlos Terry MD POINT OF CARE TEST O RDERABLES [facility] [place] [address] * (ABNORMAL) Basic Metabolic Panel (non-fasting) (08/16/2022 6:00 PM EDT) Glucose 181 65 - 199 mg/dL [facility] Comment:Diabetes: >=200 mg/d L plus symptoms Blood Urea Nitrogen 37(H) 8 - 18 mg/dL [facility] Creatinine 1.15 0.70 - 1.20 mg/dL [facility] Sodium 136 135 - 145 mmol/L [facility] Potassium 4.4 3.5 - 5.0 mmol/L [facility] Comment: Please note: ??Patients with WBC >100,000 may have falsely elevated Potassium levels. ??For accurate Potassium quantification in these patients send serum separator tube (gold top) for subsequent determinations. ??Contact the Clinical Chemistry Laboratory if there are any questions. Chloride 100 98 - 107 mmol/L [facility] Carbon Dioxide 24 22 - 31 mmol/L [facility] Anion Gap 12 5 - 15 mmol/L [facility] Calcium 8.4(L) 8.5 - 10.5 mg/dL [facility] Est Glomerular Filtration Rate 54(L) >=60 mL/min/1. 73 m?? [facility] Comment: This patient's estimated GFR was [...] In Lab Carlos Terry MD CHEMISTRY ORDERABLES [facility] [place] [address] * (ABNORMAL) BLOOD GAS 2 ARTERIAL (08/16/2022 5:59 PM EDT) pH, Arterial 7.53(H) 7.35 - 7.45 [facility] PCO2, Arterial 26(L) 35 - 45 mmHg [facility] PO2, Arterial 48(Critica l) 85 - 104 mmHg [facility] Comment:Noted by instrument maker. Bicarbonate, Arterial 21.2 20.0 - 26.0 mmol/L [facility] Base Excess, Arterial -1.5 -3.0 - 3.0 mmol/L [facility] Hgb Blood Gas 9.5(L) 11.7 - 15.5 g/dL [facility] Oxyhemoglobin, Arterial 86.1(L) 94.0 - 97.0 % [facility] Carboxyhemoglob in, Arterial 0.6 % [facility] Comment: Nonsmokers: 0.5-1.5% COHB Smokers: Variable, but usually less than 10% Toxic: 20-30% COHB Lethal: Greater than 60% COHB Methemoglobin, Arterial 0.8 <=1.5 % [facility] Na Whole Blood 132(L) 135 - 145 mmol/L [facility] K Whole Blood 4.1 3.5 - 5.0 mmol/L [facility] Comment: Please note: Patients with WBC >100,000 may have falsely elevated Potassium levels. Contact the Clinical Chemistry Laboratory if there are any questions. ICa Whole Blood 1.13(L) 1.15 - 1.33 mmol/L [facility] Comment: Note: ??Total bilirubin higher than 20 mg/dL may lead to falsely low ionized calcium. CL Whole Blood 102 98 - 107 mmol/L [facility] Gluc Whole Bld 158 65 - 199 mg/dL [facility] Comment:Diabetes: >=200 mg/d L plus symptoms. Lactate WB 1.3 0.5 - 2.2 mmol/L [facility] FIO2 Art 21 % [facility] PF Ratio Art 229 [facility] Blood 08/16/2022 5:59 PM EDT 08/16/2022 5:59 PM EDT Carlos Terry MD POINT OF CARE TEST O RDERABLES [facility] [place] [address] * (ABNORMAL) BLOOD GAS 2 ARTERIAL (08/16/2022 4:02 PM EDT) pH, Arterial 7.53(H) 7.35 - 7.45 [facility] PCO2, Arterial 30(L) 35 - 45 mmHg [facility] PO2, Arterial 55(L) 85 - 104 mmHg [facility] Bicarbonate, Arterial 24.9 20.0 - 26.0 mmol/L [facility] Base Excess, Arterial 2.1 -3.0 - 3.0 mmol/L [facility] Hgb Blood Gas 9.3(L) 11.7 - 15.5 g/dL [facility] Oxyhemoglobin, Arterial 88.5(L) 94.0 - 97.0 % [facility] Carboxyhemoglob in, Arterial 1.0 % [facility] Comment: Nonsmokers: 0.5-1.5% COHB Smokers: Variable, but usually less than 10% Toxic: 20-30% COHB Lethal: Greater than 60% COHB Methemoglobin, Arterial 0.9 <=1.5 % [facility] Na Whole Blood 133(L) 135 - 145 mmol/L [facility] K Whole Blood 4.7 3.5 - 5.0 mmol/L [facility] Comment: Please note: Patients with WBC >100,000 may have falsely elevated Potassium levels. Contact the Clinical Chemistry Laboratory if there are any questions. ICa Whole Blood 1.15 1.15 - 1.33 mmol/L [facility] Comment: Note: ??Total bilirubin higher than 20 mg/dL may lead to falsely low ionized calcium. CL Whole Blood 102 98 - 107 mmol/L [facility] Gluc Whole Bld 130 65 - 199 mg/dL [facility] Comment:Diabetes: >=200 mg/d L plus symptoms. Lactate WB 1.5 0.5 - 2.2 mmol/L [facility] FIO2 Art 21 % [facility] PF Ratio Art 262 [facility] Blood 08/16/2022 4:02 PM EDT 08/16/2022 4:02 PM EDT Carlos Terry MD POINT OF CARE TEST O RDERAREYMUNDO Performing Organization Address City/State/[facility] Co de Phone Number [facility] [place] [address] * (ABNORMAL) Coox2 (08/16/2022 3:58 PM EDT) pO2, Coox 24 mmHg [facility] Hgb Blood Gas 9.4(L) 11.7 - 15.5 g/dL [facility] Oxyhemoglobin, Coox 50.5 % [facility] Carboxyhemoglo bin, Coox 0.5 % [facility] Comment: Nonsmokers: 0.5-1.5% COHB Smokers: Variable, but usually less than 10% Toxic: 20-30% COHB Lethal: Greater than 60% COHB Methemoglobin, Coox 1.1 <=1.5 % [facility] Source Coox Mixed Venous [facility] Blood 08/16/2022 3:58 PM EDT 08/16/2022 3:58 PM EDT Carlos Terry MD POINT OF CARE TEST O RDERAREYMUNDO [facility] [place] [address] * POCT Glucose (08/16/2022 2:15 PM EDT) Glucose, POC 88 65 - 199 mg/dL [facility] Comment: Supplemental ranges: <140 mg/dL before meals <180 mg/dL all other times of the day Blood 08/16/2022 2:15 PM EDT 08/16/2022 2:15 PM EDT Carlos Terry MD POINT OF CARE TEST O GABRIELLA Performing Organization Address City/[facility] Co de Phone Number [facility] [place] [address] * POCT Glucose (08/16/2022 1:11 PM EDT) Glucose, POC 77 65 - 199 mg/dL [facility] Comment: Supplemental ranges: <140 mg/dL before meals <180 mg/dL all other times of the day Blood 08/16/2022 1:11 PM EDT 08/16/2022 1:11 PM EDT Carlos Terry MD POINT OF CARE TEST O GABRIELLA Performing Organization Address [facility] Co de Phone Number [facility] [place] [address] * (ABNORMAL) BLOOD GAS 2 ARTERIAL (08/16/2022 12:16 PM EDT) pH, Arterial 7.52(H) 7.35 - 7.45 [facility] PCO2, Arterial 30(L) 35 - 45 mmHg [facility] PO2, Arterial 59(L) 85 - 104 mmHg [facility] Bicarbonate, Arterial 24.2 20.0 - 26.0 mmol/L [facility] Base Excess, Arterial 1.5 -3.0 - 3.0 mmol/L [facility] Hgb Blood Gas 9.6(L) 11.7 - 15.5 g/dL [facility] Oxyhemoglobin, Arterial 91.1(L) 94.0 - 97.0 % [facility] Carboxyhemoglob in, Arterial 1.0 % [facility] Comment: Nonsmokers: 0.5-1.5% COHB Smokers: Variable, but usually less than 10% Toxic: 20-30% COHB Lethal: Greater than 60% COHB Methemoglobin, Arterial 0.7 <=1.5 % [facility] Na Whole Blood 132(L) 135 - 145 mmol/L [facility] K Whole Blood 3.4(L) 3.5 - 5.0 mmol/L [facility] Comment: Please note: Patients with WBC >100,000 may have falsely elevated Potassium levels. Contact the Clinical Chemistry Laboratory if there are any questions. ICa Whole Blood 1.16 1.15 - 1.33 mmol/L [facility] Comment: Note: ??Total bilirubin higher than 20 mg/dL may lead to falsely low ionized calcium. CL Whole Blood 101 98 - 107 mmol/L [facility] Gluc Whole Bld 86 65 - 199 mg/dL [facility] Comment:Diabetes: >=200 mg/d L plus symptoms. Lactate WB 1.8 0.5 - 2.2 mmol/L [facility] FIO2 Art 21 % [facility] PF Ratio Art 281 [facility] Blood 08/16/2022 12:1 6 PM EDT 08/16/2022 12:16 PM EDT Carlos Terry MD POINT OF CARE TEST O RDERABLES [facility] [place] [address] * (ABNORMAL) Coox2 (08/16/2022 12:11 PM EDT) pO2, Coox 27 mmHg [facility] Hgb Blood Gas 9.2(L) 11.7 - 15.5 g/dL [facility] Oxyhemoglobin, Coox 56.0 % [facility] Carboxyhemoglo bin, Coox 0.9 % [facility] Comment: Nonsmokers: 0.5-1.5% COHB Smokers: Variable, but usually less than 10% Toxic: 20-30% COHB Lethal: Greater than 60% COHB Methemoglobin, Coox 0.7 <=1.5 % [facility] Source Coox Mixed Venous [facility] Blood 08/16/2022 12:1 1 PM EDT 08/16/2022 12:11 PM EDT Carlos Terry MD POINT OF CARE TEST O RDERAREYMUNDO Performing Organization Address [facility] [facility] Co de Phone Number [facility] [place] [address] * (ABNORMAL) Coox2 (08/16/2022 11:17 AM EDT) pO2, Coox 24 mmHg [facility] Hgb Blood Gas 9.5(L) 11.7 - 15.5 g/dL [facility] Oxyhemoglobin, Coox 49.3 % [facility] Carboxyhemoglo bin, Coox 0.3 % [facility] Comment: Nonsmokers: 0.5-1.5% COHB Smokers: Variable, but usually less than 10% Toxic: 20-30% COHB Lethal: Greater than 60% COHB Methemoglobin, Coox 0.9 <=1.5 % [facility] Source Coox Mixed Venous [facility] Blood 08/16/2022 11:1 7 AM EDT 08/16/2022 11:17 AM EDT Carlos Terry MD POINT OF CARE TEST O GABRIELLA Performing Organization Address [facility] Co de Phone Number [facility] [place] [address] * XR Chest One View (08/16/2022 10:31 [...] who have questions please contact the health animal care taker that requested your imaging first. ? Electronically signed by: Alfonso Adams MD, [facility] ([phone]), at 08/16/2022 10:56 AM Narrative 08/16/2022 10:56 [...] patients who have questions please contactthe health animal care taker that requested your imaging first. Electronically signed by: Alfonso Adams MD, [facility]([phone]), at 08/16/2022 10:56 AM Carlos Terry MD IMG DX ORDERABLES * (ABNORMAL) Coox2 (08/16/2022 9:48 AM EDT) pO2, Coox 27 mmHg [facility] Hgb Blood Gas 10.0(L) 11.7 - 15.5 g/dL [facility] Oxyhemoglobin, Coox 56.5 % [facility] Carboxyhemoglo bin, Coox 0.5 % [facility] Comment: Nonsmokers: 0.5-1.5% COHB Smokers: Variable, but usually less than 10% Toxic: 20-30% COHB Lethal: Greater than 60% COHB Methemoglobin, Coox 0.9 <=1.5 % [facility] Source Coox Mixed Venous [facility] Blood 08/16/2022 9:48 AM EDT 08/16/2022 9:48 AM EDT Carlos Terry MD POINT OF CARE TEST O RDERABLES Performing Organization Address City/[facility] Co de Phone Number [facility] [place] [address] * POCT Glucose (08/16/2022 9:47 AM EDT) Glucose, POC 159 65 - 199 mg/dL [facility] Comment: Supplemental ranges: <140 mg/dL before meals <180 mg/dL all other times of the day Blood 08/16/2022 9:47 AM EDT 08/16/2022 9:47 AM EDT Carlos Terry MD POINT OF CARE TEST O RDERABLES Performing Organization Address City/[facility] Co de Phone Number [facility] [place] [address] * (ABNORMAL) Coox2 (08/16/2022 8:20 AM EDT) pO2, Coox 26 mmHg [facility] Hgb Blood Gas 9.9(L) 11.7 - 15.5 g/dL [facility] Oxyhemoglobin, Coox 48.7 % [facility] Carboxyhemoglo bin, Coox 0.6 % [facility] Comment: Nonsmokers: 0.5-1.5% COHB Smokers: Variable, but usually less than 10% Toxic: 20-30% COHB Lethal: Greater than 60% COHB Methemoglobin, Coox 1.0 <=1.5 % [facility] Source Coox Mixed Venous [facility] Blood 08/16/2022 8:20 AM EDT 08/16/2022 8:20 AM EDT Carlos Terry MD POINT OF CARE TEST O RDERABLES [facility] [place] [address] * (ABNORMAL) BLOOD GAS 2 ARTERIAL (08/16/2022 8:17 AM EDT) pH, Arterial 7.46(H) 7.35 - 7.45 [facility] PCO2, Arterial 36 35 - 45 mmHg [facility] PO2, Arterial 68(L) 85 - 104 mmHg [facility] Bicarbonate, Arterial 24.8 20.0 - 26.0 mmol/L [facility] Base Excess, Arterial 1.0 -3.0 - 3.0 mmol/L [facility] Hgb Blood Gas 10.0(L) 11.7 - 15.5 g/dL [facility] Oxyhemoglobin, Arterial 92.7(L) 94.0 - 97.0 % [facility] Carboxyhemoglob in, Arterial 0.3 % [facility] Comment: Nonsmokers: 0.5-1.5% COHB Smokers: Variable, but usually less than 10% Toxic: 20-30% COHB Lethal: Greater than 60% COHB Methemoglobin, Arterial 0.8 <=1.5 % [facility] Na Whole Blood 134(L) 135 - 145 mmol/L [facility] K Whole Blood 3.6 3.5 - 5.0 mmol/L [facility] Comment: Please note: Patients with WBC >100,000 may have falsely elevated Potassium levels. Contact the Clinical Chemistry Laboratory if there are any questions. ICa Whole Blood 1.14(L) 1.15 - 1.33 mmol/L [facility] Comment: Note: ??Total bilirubin higher than 20 mg/dL may lead to falsely low ionized calcium. CL Whole Blood 101 98 - 107 mmol/L [facility] Gluc Whole Bld 168 65 - 199 mg/dL [facility] Comment:Diabetes: >=200 mg/d L plus symptoms. Lactate WB 2.2 0.5 - 2.2 mmol/L [facility] FIO2 Art 21 % [facility] PF Ratio Art 324 [facility] Blood 08/16/2022 8:17 AM EDT 08/16/2022 8:17 AM EDT Carlos Terry MD POINT OF CARE TEST O RDERABLES Performing Organization Address [facility] Co de Phone Number [facility] [place] [address] * Potassium (08/16/2022 8:10 AM EDT) Potassium 3.7 3.5 - 5.0 mmol/L [facility] Comment: Please note: ??Patients with WBC [...] Pascal MD CHEMISTRY ORDERABLES Performing Organization Address [facility] Co de Phone Number [facility] [place] [address] * (ABNORMAL) Troponin (08/16/2022 8:10 AM EDT) Troponin-T, High Sensitivity 251(H) <=14 ng/L [facility] Comment: This patient's troponin T concentration [...] troponin value can be found in the [facility] Laboratory Test Catalog Troponin - [facility] Laboratory Test Catalog Reference: Fourth Ryder Definition of Myocardial Infarction. Journal of the [place] [employer] 2018;72:2665-2114 Blood 08/16/2022 8:10 AM EDT 08/16/2022 8:28 AM EDT Narrative Resulting Agency Comment Spec In Lab Carlos Terry MD CHEMISTRY ORDERABLES Performing Organization Address [facility] Co de Phone Number [facility] [place] [address] * POCT Glucose (08/16/2022 5:54 AM EDT) Glucose, POC 194 65 - 199 mg/dL [facility] Comment: Supplemental ranges: <140 mg/dL before meals <180 mg/dL all other times of the day Blood 08/16/2022 5:54 AM EDT 08/16/2022 5:54 AM EDT Carlos Terry MD POINT OF CARE TEST O RDERABLES Performing Organization Address City/[facility] Co de Phone Number [facility] [place] [address] * (ABNORMAL) Coox2 (08/16/2022 4:44 AM EDT) pO2, Coox 27 mmHg [facility] Hgb Blood Gas 9.8(L) 11.7 - 15.5 g/dL [facility] Oxyhemoglobin, Coox 54.2 % [facility] Carboxyhemoglo bin, Coox 0.8 % [facility] Comment: Nonsmokers: 0.5-1.5% COHB Smokers: Variable, but usually less than 10% Toxic: 20-30% COHB Lethal: Greater than 60% COHB Methemoglobin, Coox 1.0 <=1.5 % [facility] Source Coox Mixed Venous [facility] Blood 08/16/2022 4:44 AM EDT 08/16/2022 4:44 AM EDT Carlos Terry MD POINT OF CARE TEST O RDERABLES [facility] [place] [address] * (ABNORMAL) BLOOD GAS 2 ARTERIAL (08/16/2022 4:41 AM EDT) pH, Arterial 7.47(H) 7.35 - 7.45 [facility] PCO2, Arterial 34(L) 35 - 45 mmHg [facility] PO2, Arterial 71(L) 85 - 104 mmHg [facility] Bicarbonate, Arterial 24.5 20.0 - 26.0 mmol/L [facility] Base Excess, Arterial 0.9 -3.0 - 3.0 mmol/L [facility] Hgb Blood Gas 10.8(L) 11.7 - 15.5 g/dL [facility] Oxyhemoglobin, Arterial 93.2(L) 94.0 - 97.0 % [facility] Carboxyhemoglob in, Arterial 0.7 % [facility] Comment: Nonsmokers: 0.5-1.5% COHB Smokers: Variable, but usually less than 10% Toxic: 20-30% COHB Lethal: Greater than 60% COHB Methemoglobin, Arterial 0.8 <=1.5 % [facility] Na Whole Blood 133(L) 135 - 145 mmol/L [facility] K Whole Blood 3.9 3.5 - 5.0 mmol/L [facility] Comment: Please note: Patients with WBC >100,000 may have falsely elevated Potassium levels. Contact the Clinical Chemistry Laboratory if there are any questions. ICa Whole Blood 1.10(L) 1.15 - 1.33 mmol/L [facility] Comment: Note: ??Total bilirubin higher than 20 mg/dL may lead to falsely low ionized calcium. CL Whole Blood 102 98 - 107 mmol/L [facility] Gluc Whole Bld 216(H) 65 - 199 mg/dL [facility] Comment:Diabetes: >=200 mg/d L plus symptoms. Lactate WB 1.7 0.5 - 2.2 mmol/L [facility] FIO2 Art 25 % [facility] PF Ratio Art 284 [facility] Blood 08/16/2022 4:41 AM EDT 08/16/2022 4:41 AM EDT Carlos Terry MD POINT OF CARE TEST O RDERABLES Performing Organization Address [facility] Co de Phone Number [facility] [place] [address] * Scan, Peripheral Blood (08/16/2022 3:36 AM EDT) Plat estimate Normal [facility] RBC Morphology Abnormal [facility] Ovalocytes 1-5 /HPF [facility] Connor Cells 6-10 /HPF [facility] Toxic Granulation Present [facility] Dohle Bodies Present [facility] Blood 08/16/2022 3:36 AM EDT 08/16/2022 3:43 AM EDT Narrative Resulting Agency Comment Spec In Lab Tyler Cobb MD HEMATOLOGY ORDERABLE S Performing Organization Address [facility] Co de Phone Number [facility] [place] [address] * (ABNORMAL) Differential, Automated (08/16/2022 3:36 AM EDT) Neutrophil % 82.1 % [facility] Neutrophil Absolute 24.49(H) 1.70 - 6.10 x10(3)/mc L [facility] Lymph % 6.3 % [facility] Lymphocytes Abs 1.9 0.9 - 3.2 x10(3)/mc L [facility] Monocyte % 7.4 % [facility] Monocyte Abs 2.2(H) 0.3 - 0.9 x10(3)/mc L [facility] Eos % 0.1 % [facility] Eosinophils Abs 0.0 0.0 - 0.4 x10(3)/[facility] Basophil % 0.5 % [facility] Baso Absolute 0.2(H) 0.0 - 0.1 x10(3)/ L [facility] Immature Gran % 3.60 % [facility] Comment: Immature granulocytes(IG's)percentage and absolute count will include metamyelocytes, myelocytes, and promyelocytes. Blood smears from CBCs yielding IG's will be scanned manually for concordance. If this scan disagrees with the automated IG or if promyelocytes are noted, a manual differential will be performed. Immature Gran Absolute 1.06(H) 0.00 - 0.04 x10(3)/[facility] Blood 08/16/2022 3:36 AM EDT 08/16/2022 3:43 AM EDT Narrative Resulting Agency Comment Spec In Lab Tyler Cobb MD HEMATOLOGY ORDERABLE S [facility] [place] [address] * (ABNORMAL) Hemogram (08/16/2022 3:36 AM EDT) White Blood Cell 29.8(H) 4.0 - 9.5 x10(3)/ L [facility] Red Blood Cell 4.63 4.00 - 5.21 x10(6)/[facility] Hemoglobin 9.3(L) 11.7 - 15.5 g/dL [facility] Hematocrit 29.8(L) 35.7 - 45.8 % [facility] Mean Cell Volume 64.4(L) 82.6 - 94.4 fL [facility] Mean Cell Hemoglobin 20.1(L) 27.1 - 32.0 pg [facility] Mean Cell Hemoglobin Concentration 31.2(L) 31.7 - 35.0 g/dL [facility] Platelet 295 145 - 357 x10(3)/mc L [facility] RDW Standard Deviation 64.3(H) 37.0 - 46.0 fL [facility] RDW coefficient of variation 29.2(H) 11.5 - 14.1 % [facility] Mean Platelet Volume Not Measured 7.6 - 12.9 fL [facility] NRBC% auto 0.5 % [facility] NRBC Absolute 0.150(H) 0.000 - 0.000 x10(3)/mc L [facility] Blood 08/16/2022 3:36 AM EDT 08/16/2022 3:43 AM EDT Narrative Resulting Agency Comment Spec In Lab Tyler Cobb MD HEMATOLOGY ORDERABLE S [facility] [place] [address] * (ABNORMAL) Troponin (08/16/2022 3:36 AM EDT) Troponin-T, High Sensitivity 316(H) <=14 ng/L [facility] Comment: This patient's troponin T concentration was determined using the [employer] 5th Generation troponin T assay. The 99th [...] troponin value can be found in the [facility] Laboratory Test Catalog Troponin - [facility] Laboratory Test Catalog Reference: Fourth Ryder Definition of Myocardial Infarction. Journal of the [place] [employer] 2018;72:3184-0295 Blood 08/16/2022 3:36 AM EDT 08/16/2022 3:43 AM EDT Narrative Resulting Agency Comment Spec In Lab Carlos Terry MD CHEMISTRY ORDERABLES Performing Organization Address [facility] de Phone Number [facility] [place] [address] * Heparin (unfractionated) Level (08/16/2022 3:36 AM EDT) UF Heparin 0.30 IU/mL [facility] Comment: Heparin (anti-Xa) levels should be [...] MD HEMATOLOGY ORDERABLE S Performing Organization Address [facility] Co de Phone Number [facility] [place] [address] * (ABNORMAL) Basic Metabolic Panel (non-fasting) (08/16/2022 3:36 AM EDT) Glucose 213(H) 65 - 199 mg/dL [facility] Comment:Diabetes: >=200 mg/d L plus symptoms Blood Urea Nitrogen 37(H) 8 - 18 mg/dL [facility] Creatinine 1.42(H) 0.70 - 1.20 mg/dL [facility] Sodium 138 135 - 145 mmol/L [facility] Potassium 4.1 3.5 - 5.0 mmol/L [facility] Comment: Please note: ??Patients with WBC >100,000 may have falsely elevated Potassium levels. ??For accurate Potassium quantification in these patients send serum separator tube (gold top) for subsequent determinations. ??Contact the Clinical Chemistry Laboratory if there are any questions. Chloride 103 98 - 107 mmol/L [facility] Carbon Dioxide 24 22 - 31 mmol/L [facility] Anion Gap 11 5 - 15 mmol/L [facility] Calcium 8.1(L) 8.5 - 10.5 mg/dL [facility] Est Glomerular Filtration Rate 42(L) >=60 mL/min/1. 73 m?? [facility] Comment: This patient's estimated GFR was [...] In Lab Carlos Terry MD CHEMISTRY ORDERABLES [facility] [place] [address] * Phosphorus (08/16/2022 3:36 AM EDT) Phosphorus 2.7 2.5 - 4.5 mg/dL [facility] Blood 08/16/2022 3:36 AM EDT 08/16/2022 3:43 AM EDT Narrative Resulting Agency Comment Spec In Lab Richard Pascal MD CHEMISTRY ORDERABLES [facility] [place] [address] * Magnesium (08/16/2022 3:36 AM EDT) Magnesium 0.99 0.69 - 1.07 mmol/L [facility] Blood 08/16/2022 3:36 AM EDT 08/16/2022 3:43 AM EDT Narrative Resulting Agency Comment Spec In Lab Richard Pascal MD CHEMISTRY ORDERABLES Performing Organization Address [facility] Co de Phone Number [facility] [place] [address] * (ABNORMAL) POCT Glucose (08/16/2022 3:34 AM EDT) Pathologist [facility] Glucose, POC 207(H) 65 - 199 mg/dL [facility] Comment: Supplemental ranges: <140 mg/dL before meals <180 mg/dL all other times of the day Blood 08/16/2022 3:34 AM EDT 08/16/2022 3:34 AM EDT Carlos Terry MD POINT OF CARE TEST O RDERABLES Performing Organization Address [facility] Co de Phone Number [facility] [place] [address] * EKG 12 Lead (08/16/2022 3:24 AM EDT) Ventricular rate 79 BPM MUSE SYSTEM Atrial Rate 79 BPM MUSE SYSTEM P-R Interval 130 ms MUSE SYSTEM QRS Duration 68 ms MUSE SYSTEM Q-T Interval 396 ms MUSE SYSTEM QTC Calculated (Bezet) 454 ms MUSE SYSTEM Calculated P [place] -26 degrees MUSE SYSTEM Calculated R [place] 70 degrees MUSE SYSTEM Calculated T [place] -123 degrees MUSE SYSTEM INTERPRETATION Normal sinus [...] 2:13 AM EDT) pO2, Coox 27 mmHg [facility] Hgb Blood Gas 10.6(L) 11.7 - 15.5 g/dL [facility] Oxyhemoglobin, Coox 51.3 % [facility] Carboxyhemoglo bin, Coox 0.3 % [facility] Comment: Nonsmokers: 0.5-1.5% COHB Smokers: Variable, but usually less than 10% Toxic: 20-30% COHB Lethal: Greater than 60% COHB Methemoglobin, Coox 1.0 <=1.5 % [facility] Source Coox Mixed Venous [facility] Blood 08/16/2022 2:13 AM EDT 08/16/2022 2:13 AM EDT Carlos Terry MD POINT OF CARE TEST O RDERABLES Performing Organization Address City/[facility]/ZIP Co de Phone Number [facility] [place] [address] * POCT Glucose (08/16/2022 1:38 AM EDT) Glucose, POC 165 65 - 199 mg/dL [facility] Comment: Supplemental ranges: <140 mg/dL before meals <180 mg/dL all other times of the day Blood 08/16/2022 1:38 AM EDT 08/16/2022 1:38 AM EDT Carlos Terry MD POINT OF CARE TEST O RDERABLES [facility] [place] [address] * POCT Glucose (08/16/2022 1:01 AM EDT) Glucose, POC 136 65 - 199 mg/dL [facility] Comment: Supplemental ranges: <140 mg/dL before meals <180 mg/dL all other times of the day Blood 08/16/2022 1:01 AM EDT 08/16/2022 1:01 AM EDT Carlos Terry MD POINT OF CARE TEST O RDERAREYMUNDO Performing Organization Address City/[facility] Co de Phone Number [facility] [place] [address] * (ABNORMAL) Coox2 (08/16/2022 12:04 AM EDT) pO2, Coox 24 mmHg [facility] Hgb Blood Gas 10.5(L) 11.7 - 15.5 g/dL [facility] Oxyhemoglobin, Coox 46.3 % [facility] Carboxyhemoglo bin, Coox 0.3 % [facility] Comment: Nonsmokers: 0.5-1.5% COHB Smokers: Variable, but usually less than 10% Toxic: 20-30% COHB Lethal: Greater than 60% COHB Methemoglobin, Coox 1.2 <=1.5 % [facility] Source Coox Mixed Venous [facility] Blood 08/16/2022 12:0 4 AM EDT 08/16/2022 12:04 AM EDT Carlos Terry MD POINT OF CARE TEST O GABRIELLA Performing Organization Address [facility] Co de Phone Number [facility] [place] [address] * (ABNORMAL) BLOOD GAS 2 ARTERIAL (08/15/2022 11:59 PM EDT) pH, Arterial 7.46(H) 7.35 - 7.45 [facility] PCO2, Arterial 36 35 - 45 mmHg [facility] PO2, Arterial 75(L) 85 - 104 mmHg [facility] Bicarbonate, Arterial 24.7 20.0 - 26.0 mmol/L [facility] Base Excess, Arterial 0.8 -3.0 - 3.0 mmol/L [facility] Hgb Blood Gas 10.5(L) 11.7 - 15.5 g/dL [facility] Oxyhemoglobin, Arterial 94.3 94.0 - 97.0 % [facility] Carboxyhemoglob in, Arterial 0.2 % [facility] Comment: Nonsmokers: 0.5-1.5% COHB Smokers: Variable, but usually less than 10% Toxic: 20-30% COHB Lethal: Greater than 60% COHB Methemoglobin, Arterial 0.9 <=1.5 % [facility] Na Whole Blood 135 135 - 145 mmol/L [facility] K Whole Blood 4.5 3.5 - 5.0 mmol/L [facility] Comment: Please note: Patients with WBC >100,000 may have falsely elevated Potassium levels. Contact the Clinical Chemistry Laboratory if there are any questions. ICa Whole Blood 1.15 1.15 - 1.33 mmol/L [facility] Comment: Note: ??Total bilirubin higher than 20 mg/dL may lead to falsely low ionized calcium. CL Whole Blood 101 98 - 107 mmol/L [facility] Gluc Whole Bld 165 65 - 199 mg/dL [facility] Comment:Diabetes: >=200 mg/d L plus symptoms. Lactate WB 2.2 0.5 - 2.2 mmol/L [facility] FIO2 Art 25 % [facility] PF Ratio Art 300 [facility] Blood 08/15/2022 11:5 9 PM EDT 08/15/2022 11:59 PM EDT Carlos Terry MD POINT OF CARE TEST O RDERABLES Performing Organization Address City/State/[facility] Co de Phone Number [facility] [place] [address] * (ABNORMAL) POCT Glucose (08/15/2022 9:46 PM EDT) Glucose, POC 211(H) 65 - 199 mg/dL [facility] Comment: Supplemental ranges: <140 mg/dL before meals <180 mg/dL all other times of the day Blood 08/15/2022 9:46 PM EDT 08/15/2022 9:46 PM EDT Carlos Terry MD POINT OF CARE TEST O RDERABLES Performing Organization Address [facility] Co de Phone Number [facility] [place] [address] * Potassium (08/15/2022 9:40 PM EDT) Potassium 3.5 3.5 - 5.0 mmol/L [facility] Comment: result rechecked-CORTNEY Please note: ??Patients [...] Pascal MD CHEMISTRY ORDERABLES Performing Organization Address [facility] Co de Phone Number [facility] [place] [address] * Vancomycin Level, Random (08/15/2022 9:40 PM EDT) Pathologist [facility] [place] Vancomycin, Random 19.5 mg/L [facility] Comment: This level is for determination of the patient's vancomycin dvjh-chmoe-nnc-curve (AUC) value. Contact the inpatient pharmacy for interpretation. Blood 08/15/2022 9:40 PM EDT 08/15/2022 9:56 PM EDT Carlos Terry MD CHEMISTRY ORDERABLES Performing Organization Address [facility] Co de Phone Number [facility] [place] [address] * (ABNORMAL) Coox2 (08/15/2022 8:10 PM EDT) pO2, Coox 24 mmHg [facility] Hgb Blood Gas 10.6(L) 11.7 - 15.5 g/dL [facility] Oxyhemoglobin, Coox 49.8 % [facility] Carboxyhemoglo bin, Coox 0.7 % [facility] Comment: Nonsmokers: 0.5-1.5% COHB Smokers: Variable, but usually less than 10% Toxic: 20-30% COHB Lethal: Greater than 60% COHB Methemoglobin, Coox 0.8 <=1.5 % [facility] Source Coox Mixed Venous [facility] Blood 08/15/2022 8:10 PM EDT 08/15/2022 8:10 PM EDT Carlos Terry MD POINT OF CARE TEST O RDERABLES [facility] [place] [address] * (ABNORMAL) BLOOD GAS 2 ARTERIAL (08/15/2022 8:08 PM EDT) pH, Arterial 7.44 7.35 - 7.45 [facility] PCO2, Arterial 30(L) 35 - 45 mmHg [facility] PO2, Arterial 78(L) 85 - 104 mmHg [facility] Bicarbonate, Arterial 19.7(L) 20.0 - 26.0 mmol/L [facility] Base Excess, Arterial -4.4(L) -3.0 - 3.0 mmol/L [facility] Hgb Blood Gas 9.8(L) 11.7 - 15.5 g/dL [facility] Oxyhemoglobin, Arterial 94.4 94.0 - 97.0 % [facility] Carboxyhemoglob in, Arterial 0.6 % [facility] Comment: Nonsmokers: 0.5-1.5% COHB Smokers: Variable, but usually less than 10% Toxic: 20-30% COHB Lethal: Greater than 60% COHB Methemoglobin, Arterial 0.8 <=1.5 % [facility] Na Whole Blood 135 135 - 145 mmol/L [facility] K Whole Blood 3.1(L) 3.5 - 5.0 mmol/L [facility] Comment: Please note: Patients with WBC >100,000 may have falsely elevated Potassium levels. Contact the Clinical Chemistry Laboratory if there are any questions. ICa Whole Blood 1.08(L) 1.15 - 1.33 mmol/L [facility] Comment: Note: ??Total bilirubin higher than 20 mg/dL may lead to falsely low ionized calcium. CL Whole Blood 107 98 - 107 mmol/L [facility] Gluc Whole Bld 178 65 - 199 mg/dL [facility] Comment:Diabetes: >=200 mg/d L plus symptoms. Lactate WB 1.6 0.5 - 2.2 mmol/L [facility] FIO2 Art 25 % [facility] PF Ratio Art 312 [facility] Blood 08/15/2022 8:08 PM EDT 08/15/2022 8:08 PM EDT Carlos Terry MD POINT OF CARE TEST O RDERABLES Performing Organization Address [facility] Co de Phone Number [facility] [place] [address] * POCT Glucose (08/15/2022 6:03 PM EDT) Glucose, POC 186 65 - 199 mg/dL [facility] Comment: Supplemental ranges: <140 mg/dL before meals <180 mg/dL all other times of the day Blood 08/15/2022 6:03 PM EDT 08/15/2022 6:03 PM EDT Carlos Terry MD POINT OF CARE TEST O RDERAREYMUNDO Performing Organization Address [facility] Co de Phone Number [facility] [place] [address] * (ABNORMAL) POCT Glucose (08/15/2022 4:51 PM EDT) Glucose, POC 210(H) 65 - 199 mg/dL [facility] Comment: Supplemental ranges: <140 mg/dL before meals <180 mg/dL all other times of the day Blood 08/15/2022 4:51 PM EDT 08/15/2022 4:51 PM EDT Carlos Terry MD POINT OF CARE TEST O RDERABLES Performing Organization Address [facility] Co de Phone Number [facility] [place] [address] * Heparin (unfractionated) Level (08/15/2022 4:50 PM EDT) UF Heparin 0.37 IU/mL [facility] Comment: Heparin (anti-Xa) levels should [...] Narrative Resulting Agency Comment Spec In Lab Calros Terry MD HEMATOLOGY ORDERABLE S Performing Organization Address [facility] Co de Phone Number [facility] [place] [address] * (ABNORMAL) Coox2 (08/15/2022 4:24 PM EDT) pO2, Coox 29 mmHg [facility] Hgb Blood Gas 11.1(L) 11.7 - 15.5 g/dL [facility] Oxyhemoglobin, Coox 57.4 % [facility] Carboxyhemoglo bin, Coox 0.5 % [facility] Comment: Nonsmokers: 0.5-1.5% COHB Smokers: Variable, but usually less than 10% Toxic: 20-30% COHB Lethal: Greater than 60% COHB Methemoglobin, Coox 0.8 <=1.5 % [facility] Source Coox Mixed Venous [facility] Blood 08/15/2022 4:24 PM EDT 08/15/2022 4:24 PM EDT Carlos Terry MD POINT OF CARE TEST O RDERABLES [facility] [place] [address] * Vancomycin Level, Random (08/15/2022 4:20 PM EDT) Vancomycin, Random 23.8 mg/L [facility] Comment: This level is for determination of the patient's vancomycin xddz-qfpga-xzj-curve (AUC) value. Contact the inpatient pharmacy for interpretation. Blood Venous Draw / Unknown 08/15/2022 4:20 PM EDT 08/15/2022 4:26 PM EDT Tyler Cobb MD CHEMISTRY ORDERABLES Performing Organization Address City/[facility] Co de Phone Number [facility] [place] [address] * (ABNORMAL) Basic Metabolic Panel (non-fasting) (08/15/2022 4:20 PM EDT) Glucose 227(H) 65 - 199 mg/dL [facility] Comment:Diabetes: >=200 mg/d L plus symptoms Blood Urea Nitrogen 39(H) 8 - 18 mg/dL [facility] Creatinine 1.50(H) 0.70 - 1.20 mg/dL [facility] Sodium 138 135 - 145 mmol/L [facility] Potassium 5.0 3.5 - 5.0 mmol/L [facility] Comment: Please note: ??Patients with WBC >100,000 may have falsely elevated Potassium levels. ??For accurate Potassium quantification in these patients send serum separator tube (gold top) for subsequent determinations. ??Contact the Clinical Chemistry Laboratory if there are any questions. Chloride 103 98 - 107 mmol/L [facility] Carbon Dioxide Not Perf 22 - 31 [facility] Comment:Add-on request. Samp le too old to perform test. Anion Gap Unable to Calculate 5 - 15 mmol/L [facility] Calcium 8.4(L) 8.5 - 10.5 mg/dL [facility] Est Glomerular Filtration Rate 39(L) >=60 mL/min/1 .73 m?? [facility] Comment: This patient's estimated GFR [...] Cobb MD CHEMISTRY ORDERABLES Performing Organization Address [facility] Co de Phone Number [facility] [place] [address] * Potassium (08/15/2022 4:20 PM EDT) Potassium 5.0 3.5 - 5.0 mmol/L [facility] Comment: result rechecked-KT Please note: ??Patients [...] Pascal MD CHEMISTRY ORDERABLES Performing Organization Address City/[facility]/ZIP Co de Phone Number [facility] [place] [address] * (ABNORMAL) Heparin (unfractionated) Level (08/15/2022 4:20 PM EDT) UF Heparin 1.17(Crit ical) IU/mL [facility] Comment: Critical Result called by ?? [...] MD HEMATOLOGY ORDERABLE S Performing Organization Address City/State/[facility] Co de Phone Number [facility] [place] [address] * (ABNORMAL) BLOOD GAS 2 ARTERIAL (08/15/2022 4:16 PM EDT) pH, Arterial 7.38 7.35 - 7.45 [facility] PCO2, Arterial 36 35 - 45 mmHg [facility] PO2, Arterial 78(L) 85 - 104 mmHg [facility] Bicarbonate, Arterial 20.8 20.0 - 26.0 mmol/L [facility] Base Excess, Arterial -4.2(L) -3.0 - 3.0 mmol/L [facility] Hgb Blood Gas 11.0(L) 11.7 - 15.5 g/dL [facility] Oxyhemoglobin, Arterial 94.2 94.0 - 97.0 % [facility] Carboxyhemoglob in, Arterial 0.5 % [facility] Comment: Nonsmokers: 0.5-1.5% COHB Smokers: Variable, but usually less than 10% Toxic: 20-30% COHB Lethal: Greater than 60% COHB Methemoglobin, Arterial 0.8 <=1.5 % [facility] Na Whole Blood 135 135 - 145 mmol/L [facility] K Whole Blood 4.5 3.5 - 5.0 mmol/L [facility] Comment: Please note: Patients with WBC >100,000 may have falsely elevated Potassium levels. Contact the Clinical Chemistry Laboratory if there are any questions. ICa Whole Blood 1.14(L) 1.15 - 1.33 mmol/L [facility] Comment: Note: ??Total bilirubin higher than 20 mg/dL may lead to falsely low ionized calcium. CL Whole Blood 105 98 - 107 mmol/L [facility] Gluc Whole Bld 210(H) 65 - 199 mg/dL [facility] Comment:Diabetes: >=200 mg/d L plus symptoms. Lactate WB 1.8 0.5 - 2.2 mmol/L [facility] FIO2 Art 30 % [facility] PF Ratio Art 260 [facility] Blood 08/15/2022 4:16 PM EDT 08/15/2022 4:16 PM EDT Carlos Terry MD POINT OF CARE TEST O RDAV Performing Organization Address [facility] Co de Phone Number [facility] [place] [address] * POCT Glucose (08/15/2022 2:01 PM EDT) Glucose, POC 94 65 - 199 mg/dL [facility] Comment: Supplemental ranges: <140 mg/dL before meals <180 mg/dL all other times of the day Blood 08/15/2022 2:01 PM EDT 08/15/2022 2:01 PM EDT Carlos Terry MD POINT OF CARE TEST O RDERABLES [facility] [place] [address] * POCT Glucose (08/15/2022 1:16 PM EDT) Glucose, POC 89 65 - 199 mg/dL [facility] Comment: Supplemental ranges: <140 mg/dL before meals <180 mg/dL all other times of the day Blood 08/15/2022 1:16 PM EDT 08/15/2022 1:16 PM EDT Carlos Terry MD POINT OF CARE TEST O RDERABLES Performing Organization Address [facility] Co de Phone Number [facility] [place] [address] * POCT Glucose (08/15/2022 1:00 PM EDT) Glucose, POC 69 65 - 199 mg/dL [facility] Comment: Supplemental ranges: <140 mg/dL before meals <180 mg/dL all other times of the day Blood 08/15/2022 1:00 PM EDT 08/15/2022 1:00 PM EDT Carlos Terry MD POINT OF CARE TEST O RDERAREYMUNDO Performing Organization Address [facility] Co de Phone Number [facility] [place] [address] * Urine culture Indwelling Catheter Urine; Other; sepsis, bacteria on UA (08/15/2022 12:25 PM EDT) Urine Culture 1,000-9,000 cfu/ml Insignificant growth [facility] Indwelling Catheter Urine 08/15/2022 12:25 PM EDT 08/15/2022 12:48 PM EDT Comment:Patient has fever an d at least one of the following clinical symptoms of urinary tract infection (UTI) or additional considerations->Other Narrative Resulting Agency Comment Spec In Lab Carlos Terry MD MICROBIOLOGY - GENER AL ORDERABLES Performing Organization Address [facility] Co de Phone Number [facility] [place] [address] * (ABNORMAL) BLOOD GAS 2 ARTERIAL (08/15/2022 12:18 PM EDT) pH, Arterial 7.37 7.35 - 7.45 [facility] PCO2, Arterial 39 35 - 45 mmHg [facility] PO2, Arterial 92 85 - 104 mmHg [facility] Bicarbonate, Arterial 22.2 20.0 - 26.0 mmol/L [facility] Base Excess, Arterial -3.0 -3.0 - 3.0 mmol/L [facility] Hgb Blood Gas 10.8(L) 11.7 - 15.5 g/dL [facility] Oxyhemoglobin, Arterial 95.6 94.0 - 97.0 % [facility] Carboxyhemoglob in, Arterial 0.5 % [facility] Comment: Nonsmokers: 0.5-1.5% COHB Smokers: Variable, but usually less than 10% Toxic: 20-30% COHB Lethal: Greater than 60% COHB Methemoglobin, Arterial 0.9 <=1.5 % [facility] Na Whole Blood 137 135 - 145 mmol/L [facility] K Whole Blood 4.0 3.5 - 5.0 mmol/L [facility] Comment: Please note: Patients with WBC >100,000 may have falsely elevated Potassium levels. Contact the Clinical Chemistry Laboratory if there are any questions. ICa Whole Blood 1.15 1.15 - 1.33 mmol/L [facility] Comment: Note: ??Total bilirubin higher than 20 mg/dL may lead to falsely low ionized calcium. CL Whole Blood 107 98 - 107 mmol/L [facility] Gluc Whole Bld 57(L) 65 - 199 mg/dL [facility] Comment:Diabetes: >=200 mg/d L plus symptoms. Lactate WB 1.5 0.5 - 2.2 mmol/L [facility] FIO2 Art 30 % [facility] PF Ratio Art 307 [facility] Blood 08/15/2022 12:1 8 PM EDT 08/15/2022 12:18 PM EDT Carlos Terry MD POINT OF CARE TEST O RDERABLES [facility] [place] [address] * (ABNORMAL) Coox2 (08/15/2022 12:13 PM EDT) pO2, Coox 30 mmHg [facility] Hgb Blood Gas 11.1(L) 11.7 - 15.5 g/dL [facility] Oxyhemoglobin, Coox 59.4 % [facility] Carboxyhemoglo bin, Coox 0.4 % [facility] Comment: Nonsmokers: 0.5-1.5% COHB Smokers: Variable, but usually less than 10% Toxic: 20-30% COHB Lethal: Greater than 60% COHB Methemoglobin, Coox 0.9 <=1.5 % [facility] Source Coox Mixed Venous [facility] Blood 08/15/2022 12:1 3 PM EDT 08/15/2022 12:13 PM EDT Carlos Terry MD POINT OF CARE TEST O RDERAREYMUNDO Performing Organization Address City/[facility] Co de Phone Number [facility] [place] [address] * POCT Glucose (08/15/2022 11:59 AM EDT) Glucose, POC 83 65 - 199 mg/dL [facility] Comment: Supplemental ranges: <140 mg/dL before meals <180 mg/dL all other times of the day Blood 08/15/2022 11:5 9 AM EDT 08/15/2022 11:59 AM EDT Carlos Terry MD POINT OF CARE TEST O GABRIELLA Performing Organization Address City/[facility] Co de Phone Number [facility] [place] [address] * COVID-19 PCR (08/15/2022 11:50 AM EDT) SARS-CoV-2 RNA (Rapid) Not Detected Not Detected [facility] Comment: This result should be interpreted [...] using the Simplexa COVID-19 Direct Assay by [employer] as authorized by the FDA issued Emergency [...] Department of Pathology and Laboratory Medicine at [facility], certified under the Clinical Laboratory Improvement Amendments [...] fact sheets at the following FDA website: https://www.fda.gov/medical-devices/xsghfjovmwh-nyzuxmm-7567-fmggy-86-lxgpbsrkn- use-a cglavazqchxsy-xciclef-gqfacux/pnzfq-dingbklcqne-ayxu SARS-CoV-2 Source [employer] Swab [facility] Nasopharyngeal Swab 08/16/19 11:50 AM EDT 08/15/2022 12:36 PM EDT Comment:Specimen Source->Wili opharyngeal Swab Narrative Resulting Agency Comment Spec In Lab Carlos Terry MD MICROBIOLOGY - GENER AL ORDERABLES Performing Organization Address [facility] Co de Phone Number [facility] [place] [address] * POCT Glucose (08/15/2022 11:22 AM EDT) Glucose, POC 84 65 - 199 mg/dL [facility] Comment: Supplemental ranges: <140 mg/dL before meals <180 mg/dL all other times of the day Blood 08/15/2022 11:2 2 AM EDT 08/15/2022 11:22 AM EDT Carlos Terry MD POINT OF CARE TEST O RDERABLES Performing Organization Address [facility] Co de Phone Number [facility] [place] [address] * POCT Glucose (08/15/2022 10:13 AM EDT) Glucose, POC 123 65 - 199 mg/dL [facility] Comment: Supplemental ranges: <140 mg/dL before meals <180 mg/dL all other times of the day Blood 08/15/2022 10:1 3 AM EDT 08/15/2022 10:13 AM EDT Carlos Terry MD POINT OF CARE TEST O RDERABLES Performing Organization Address [facility] Co de Phone Number [facility] [place] [address] * ECHO COMPLETE (08/15/2022 10:04 AM EDT) Anatomical Region Laterality Modality Cardiac Other 08/15/2022 9:38 AM EDT Narrative 08/15/2022 10:34 AM EDT ? Echocardiogram Report Name: ISHAN IRVING ? Study Date: 08/15/2022 09:38 AMBP: 102/54 mmHg ? Patient Location: 0000 ? HR: 99 : 1960 ? Height: 152 cm ? Account: [id number] Age: 62 yrs ? Weight: 69 kg Gender: Female ?BSA: 1.7 m2 Ordering Physician: HARRISON^CARLOS^M Referring Physician: NIURKA AYALA Performed By: Raissa Bhakta RDCS Reason For Study: Septic shock Exam Location: [facility]. Interpretation Summary -Left ventricle is mildly dilated. [...] today's date, LVEF is slightly improved. Procedure Complete-[id number]. Satisfactory quality. There is normal sinus rhythm. [...] Date: 309:38 AMBP: 102/54 mmHg Patient Location: [id number] HR: 99 : 1960 Height: 152 cm Account: [id number] Age: 62 yrs Weight: 69 kg Gender: Female BSA: 1.7 m2 Ordering Physician: HARRISON^DAVIDM Referring Physician: NIURKA AYALA Performed By: Raissa Bhakta RDCS Reason For Study: Septic shock Exam Location: [facility]. Interpretation Summary -Left ventricle is mildly dilated. [...] today's date, LVEF is slightly improved. Procedure Complete-[id number]. Satisfactory quality. There is normal sinus rhythm. [...] Protein, Total 5.6(L) 6.1 - 8.0 g/dL [facility] Albumin 2.4(L) 3.2 - 5.2 g/dL [facility] Aspartate Aminotransferase 21 0 - 30 unit/L [facility] Alanine Aminotransferase 12 0 - 30 unit/L [facility] Alkaline Phosphatase 102 35 - 105 unit/L [facility] Bilirubin, Total <0.2(L) 0.2 - 1.3 mg/dL [facility] Bilirubin, Direct 0.1 0.0 - 0.3 mg/dL [facility] Blood Venous Draw / Unknown 08/15/2022 9:50 AM EDT 08/15/2022 10:04 AM EDT Narrative Resulting Agency Comment Spec In Lab Jigar Streeter MD CHEMISTRY ORDERABLES Performing Organization Address City/[facility] Co de Phone Number [facility] [place] [address] * (ABNORMAL) Potassium (08/15/2022 9:50 AM EDT) Potassium 3.2(L) 3.5 - 5.0 mmol/L [facility] Comment: Please note: ??Patients with WBC [...] Pascal MD CHEMISTRY ORDERABLES Performing Organization Address [facility] Co de Phone Number [facility] [place] [address] * (ABNORMAL) Troponin (08/15/2022 9:50 AM EDT) Pathologist [facility] [place] Troponin-T, High Sensitivity 575(H) <=14 ng/L [facility] Comment: This patient's troponin T concentration [...] troponin value can be found in the [facility] Laboratory Test Catalog Troponin - [facility] Laboratory Test Catalog Reference: Fourth Ryder Definition of Myocardial Infarction. Journal of the [place] [employer] 2018;72:1220-1081 Blood 08/15/2022 9:50 AM EDT 08/15/2022 9:59 AM EDT Narrative Resulting Agency Comment Spec In Lab Carlos Terry MD CHEMISTRY ORDERABLES Performing Organization Address City/[facility] [place] [place] [address] * Heparin (unfractionated) Level (08/15/2022 8:50 AM EDT) UF Heparin 0.51 IU/mL [facility] Comment: Heparin (anti-Xa) levels [...] MD HEMATOLOGY ORDERABLE S Performing Organization Address City/[facility]/ZIP Co de Phone Number [facility] [place] [address] * (ABNORMAL) BLOOD GAS 2 ARTERIAL (08/15/2022 8:49 AM EDT) pH, Arterial 7.36 7.35 - 7.45 [facility] PCO2, Arterial 37 35 - 45 mmHg [facility] PO2, Arterial 78(L) 85 - 104 mmHg [facility] Bicarbonate, Arterial 20.3 20.0 - 26.0 mmol/L [facility] Base Excess, Arterial -5.1(L) -3.0 - 3.0 mmol/L [facility] Hgb Blood Gas 11.3(L) 11.7 - 15.5 g/dL [facility] Oxyhemoglobin, Arterial 93.8(L) 94.0 - 97.0 % [facility] Carboxyhemoglob in, Arterial 0.5 % [facility] Comment: Nonsmokers: 0.5-1.5% COHB Smokers: Variable, but usually less than 10% Toxic: 20-30% COHB Lethal: Greater than 60% COHB Methemoglobin, Arterial 0.8 <=1.5 % [facility] Na Whole Blood 137 135 - 145 mmol/L [facility] K Whole Blood 4.0 3.5 - 5.0 mmol/L [facility] Comment: Please note: Patients with WBC >100,000 may have falsely elevated Potassium levels. Contact the Clinical Chemistry Laboratory if there are any questions. ICa Whole Blood 1.21 1.15 - 1.33 mmol/L [facility] Comment: Note: ??Total bilirubin higher than 20 mg/dL may lead to falsely low ionized calcium. CL Whole Blood 106 98 - 107 mmol/L [facility] Gluc Whole Bld 106 65 - 199 mg/dL [facility] Comment:Diabetes: >=200 mg/d L plus symptoms. Lactate WB 2.9(H) 0.5 - 2.2 mmol/L [facility] FIO2 Art 30 % [facility] PF Ratio Art 260 [facility] Blood 08/15/2022 8:49 AM EDT 08/15/2022 8:49 AM EDT Carlos Terry MD POINT OF CARE TEST O RDERABLES [facility] [address] [place] [address] * XR Abdomen 1 view (Generic) (08/15/2022 [...] who have questions please contact the health animal care taker that requested your imaging first. ? Electronically signed by: Liliane Adams MD, [facility] ([phone]), at 08/15/2022 9:05 AM Narrative 08/15/2022 9:05 AM EDT EXAMINATION: XR ABDOMEN 1 VIEW (GENERIC) CLINICAL HISTORY: 62 yo F w/ shock, confirm NG tube placement TECHNIQUE: Single radiograph of the lower chest and upper abdomen for purposes of enteric tube verification and otherwise nondiagnostic. The lower abdomen is excluded from [id number]. COMPARISON: Abdominal radiograph 08/15/2022 FINDINGS: * ??An [...] otherwise nondiagnostic. The lower abdomen isexcluded from [id number]. COMPARISON: Abdominal radiograph 08/15/2022 FINDINGS: * An [...] patients who have questions please contactthe health animal care taker that requested your imaging first. Electronically signed by: Liliane Adams MD, [facility]([phone]), at 08/15/2022 9:05 AM Carlos Terry MD IMG DX ORDERABLES * POCT Glucose (08/15/2022 7:51 AM EDT) Glucose, POC 189 65 - 199 mg/dL [facility] Comment: Supplemental ranges: <140 mg/dL before meals <180 mg/dL all other times of the day Blood 08/15/2022 7:51 AM EDT 08/15/2022 7:51 AM EDT Carlos Terry MD POINT OF CARE TEST O RDERABLES [facility] [place] [address] * Lower Respiratory Culture Sputum Induced (08/15/2022 7:40 AM EDT) Lower Respiratory Culture Rare normal upper respiratory wiley [facility] Gram Stain Many Neutrophils Few squamous epithelial cells Rare mixed bacterial morphotypes suggestive of normal upper respiratory wiley [facility] Sputum Induced 08/15/2022 7: 40 AM EDT 08/15/2022 10:13 AM EDT Narrative Resulting Agency Comment Spec In Lab Carlos Terry MD MICROBIOLOGY - GENER AL ORDERABLES [facility] [address] [place] [address] * EKG 12 Lead (08/15/2022 7:36 AM EDT) Ventricular rate 106 BPM MUSE SYSTEM Atrial Rate 106 BPM MUSE SYSTEM P-R Interval 128 ms MUSE SYSTEM QRS Duration 70 ms MUSE SYSTEM Q-T Interval 362 ms MUSE SYSTEM QTC Calculated (Bezet) 480 ms MUSE SYSTEM Calculated P Monroe 59 degrees MUSE SYSTEM Calculated R Monroe 94 degrees MUSE SYSTEM Calculated T Monroe 160 degrees MUSE SYSTEM INTERPRETATION Sinus tachycardia Rightward axis Low voltage QRS Septal infarct (cited on or before 14-AUG-2022) T wave abnormality, consider anterolateral ischemia Abnormal ECG When compared with ECG of 14-AUG-2022 23:19, Lateral T wave inversion is more prounced QRS axis Shifted right Confirmed by MD Harrison, Carlos Hand ([id number]) on 08/17/2022 6:16:58 PM MUSE SYSTEM 08/15/2022 7:36 AM EDT 08/17/2022 6:16 PM EDT Carlos Terry MD ECG ORDERABLES Performing Organization Address City/[facility]/ZIP Co de Phone Number MUSE SYSTEM * [...] who have questions please contact the health animal care taker that requested your imaging first. ? Electronically signed by: Davi Terry MD, [facility] ([phone]), at 08/15/2022 6:41 AM Narrative 08/15/2022 6:41 AM EDT EXAMINATION: XR [...] patients who have questions please contactthe health animal care taker that requested your imaging first. Carlos Terry MD IMG DX ORDERABLES * (ABNORMAL) POCT Glucose (08/15/2022 6:38 AM EDT) Pathologist [facility] [place] Glucose, POC 219(H) 65 - 199 mg/dL [facility] Comment: Supplemental ranges: <140 mg/dL before meals <180 mg/dL all other times of the day Blood 08/15/2022 6:38 AM EDT 08/15/2022 6:38 AM EDT Carlos Terry MD POINT OF CARE TEST O RDERABLES Performing Organization Address City/[facility]/ZIP Co de Phone Number [facility] [place] [address] * (ABNORMAL) Lactate, whole blood, send to lab ([facility]) (08/15/2022 5:55 AM EDT) [facility] Lactate WB 3.1(H) 0.5 - 2.2 mmol/L [facility] Blood 08/15/2022 5:55 AM EDT 08/15/2022 6:02 AM EDT Narrative Resulting Agency Comment Spec In Lab Carlos Terry MD CHEMISTRY ORDERABLES [facility] [place] [address] * (ABNORMAL) Coox2 (08/15/2022 5:33 AM EDT) pO2, Coox 34 mmHg [facility] Hgb Blood Gas 11.1(L) 11.7 - 15.5 g/dL [facility] Oxyhemoglobin, Coox 63.7 % [facility] Carboxyhemoglo bin, Coox 0.6 % [facility] Comment: Nonsmokers: 0.5-1.5% COHB Smokers: Variable, but usually less than 10% Toxic: 20-30% COHB Lethal: Greater than 60% COHB Methemoglobin, Coox 1.0 <=1.5 % [facility] Source Coox Mixed Venous [facility] Blood 08/15/2022 5:33 AM EDT 08/15/2022 5:33 AM EDT Carlos Terry MD POINT OF CARE TEST O RDERABLES [facility] [address] [place] [address] * (ABNORMAL) BLOOD GAS 2 ARTERIAL (08/15/2022 5:31 AM EDT) pH, Arterial 7.30(L) 7.35 - 7.45 [facility] PCO2, Arterial 41 35 - 45 mmHg [facility] PO2, Arterial 117(H) 85 - 104 mmHg [facility] Bicarbonate, Arterial 19.6(L) 20.0 - 26.0 mmol/L [facility] Base Excess, Arterial -6.9(L) -3.0 - 3.0 mmol/L [facility] Hgb Blood Gas 11.2(L) 11.7 - 15.5 g/dL [facility] Oxyhemoglobin, Arterial 96.8 94.0 - 97.0 % [facility] Carboxyhemoglob in, Arterial 0.2 % [facility] Comment: Nonsmokers: 0.5-1.5% COHB Smokers: Variable, but usually less than 10% Toxic: 20-30% COHB Lethal: Greater than 60% COHB Methemoglobin, Arterial 0.8 <=1.5 % [facility] Na Whole Blood 140 135 - 145 mmol/L [facility] K Whole Blood 2.7(Critic al) 3.5 - 5.0 mmol/L [facility] Comment: Noted by instrument maker. Please note: Patients with WBC >100,000 may have falsely elevated Potassium levels. Contact the Clinical Chemistry Laboratory if there are any questions. ICa Whole Blood 1.16 1.15 - 1.33 mmol/L [facility] Comment: Note: ??Total bilirubin higher than 20 mg/dL may lead to falsely low ionized calcium. CL Whole Blood 109(H) 98 - 107 mmol/L [facility] Gluc Whole Bld 277(H) 65 - 199 mg/dL [facility] Comment:Diabetes: >=200 mg/d L plus symptoms. Lactate WB 3.6(H) 0.5 - 2.2 mmol/L [facility] FIO2 Art 40 % [facility] PF Ratio Art 292 [facility] Blood 08/15/2022 5:31 AM EDT 08/15/2022 5:31 AM EDT Carlos Terry MD POINT OF CARE TEST O GABRIELLA Performing Organization Address City/[facility] Co de Phone Number [facility] [place] [address] * (ABNORMAL) POCT Glucose (08/15/2022 5:00 AM EDT) Glucose, POC 280(H) 65 - 199 mg/dL [facility] Comment: Supplemental ranges: <140 mg/dL before meals <180 mg/dL all other times of the day Blood 08/15/2022 5:00 AM EDT 08/15/2022 5:00 AM EDT Carlos Terry MD POINT OF CARE TEST O GABRIELLA Performing Organization Address City/[facility] Co de Phone Number [facility] [place] [address] * (ABNORMAL) BLOOD GAS 2 ARTERIAL (08/15/2022 3:11 AM EDT) pH, Arterial 7.25(Criti tonya) 7.35 - 7.45 [facility] Comment:Noted by instrument maker. PCO2, Arterial 38 35 - 45 mmHg [facility] PO2, Arterial 112(H) 85 - 104 mmHg [facility] Bicarbonate, Arterial 16.0(L) 20.0 - 26.0 mmol/L [facility] Base Excess, Arterial -11.2(L) -3.0 - 3.0 mmol/L [facility] Hgb Blood Gas 11.0(L) 11.7 - 15.5 g/dL [facility] Oxyhemoglobin, Arterial 96.4 94.0 - 97.0 % [facility] Carboxyhemoglob in, Arterial 0.1 % [facility] Comment: Nonsmokers: 0.5-1.5% COHB Smokers: Variable, but usually less than 10% Toxic: 20-30% COHB Lethal: Greater than 60% COHB Methemoglobin, Arterial 0.9 <=1.5 % [facility] Na Whole Blood 138 135 - 145 mmol/L [facility] K Whole Blood 3.4(L) 3.5 - 5.0 mmol/L [facility] Comment: Please note: Patients with WBC >100,000 may have falsely elevated Potassium levels. Contact the Clinical Chemistry Laboratory if there are any questions. ICa Whole Blood 1.16 1.15 - 1.33 mmol/L [facility] Comment: Note: ??Total bilirubin higher than 20 mg/dL may lead to falsely low ionized calcium. CL Whole Blood 106 98 - 107 mmol/L [facility] Gluc Whole Bld 324(H) 65 - 199 mg/dL [facility] Comment:Diabetes: >=200 mg/d L plus symptoms. Lactate WB 1.9 0.5 - 2.2 mmol/L [facility] FIO2 Art 40 % [facility] PF Ratio Art 280 [facility] Blood 08/15/2022 3:11 AM EDT 08/15/2022 3:11 AM EDT Carlos Terry MD POINT OF CARE TEST O RDERABLES [facility] [place] [address] * (ABNORMAL) Hepatic Function Panel (08/15/2022 3:05 AM EDT) Protein, Total 5.6(L) 6.1 - 8.0 g/dL [facility] Albumin 2.4(L) 3.2 - 5.2 g/dL [facility] Aspartate Aminotransferase 25 0 - 30 unit/L [facility] Alanine Aminotransferase 13 0 - 30 unit/L [facility] Alkaline Phosphatase 99 35 - 105 unit/L [facility] Bilirubin, Total 0.2 0.2 - 1.3 mg/dL [facility] Bilirubin, Direct 0.1 0.0 - 0.3 mg/dL [facility] Blood Venous Draw / Unknown 08/15/2022 3:05 AM EDT 08/15/2022 3:17 AM EDT Narrative Resulting Agency Comment Spec In Lab Vanessa Escalona MD CHEMISTRY ORDERABLE S [facility] [place] [address] * (ABNORMAL) Basic Metabolic Panel (non-fasting) (08/15/2022 3:05 AM EDT) Glucose 378(H) 65 - 199 mg/dL [facility] Comment:Diabetes: >=200 mg/d L plus symptoms Blood Urea Nitrogen 38(H) 8 - 18 mg/dL [facility] Creatinine 1.42(H) 0.70 - 1.20 mg/dL [facility] Sodium 140 135 - 145 mmol/L [facility] Potassium 3.7 3.5 - 5.0 mmol/L [facility] Comment: Please note: ??Patients with WBC >100,000 may have falsely elevated Potassium levels. ??For accurate Potassium quantification in these patients send serum separator tube (gold top) for subsequent determinations. ??Contact the Clinical Chemistry Laboratory if there are any questions. Chloride 104 98 - 107 mmol/L [facility] Carbon Dioxide Not Perf 22 - 31 [facility] Comment:Add-on request. Samp le too old to perform test. Anion Gap Unable to Calculate 5 - 15 mmol/L [facility] Calcium 8.3(L) 8.5 - 10.5 mg/dL [facility] Est Glomerular Filtration Rate 42(L) >=60 mL/min/1 .73 m?? [facility] Comment: This patient's estimated GFR was [...] Cobb MD CHEMISTRY ORDERABLES Performing Organization Address City/[facility]/[place] [address] * Scan, Peripheral Blood (08/15/2022 3:05 AM EDT) Plat estimate Increased [facility] RBC Morphology Abnormal [facility] Macrocyte 1-5 /HPF [facility] Microcyte 6-10 /HPF [facility] Comment:Corrected from 1-5 / HPF [NA] on 08/15/22 3:54:48 EDT by Cedric Forbes Hypochromia Moderate [facility] Target Cells 1-5 /HPF [facility] Connor Cells gtr than 10 /HPF [facility] Comment:Corrected from 1-5 / HPF [NA] on 08/15/22 3:54:48 EDT by Cedric Forbes Platelet Clumps Present [facility] Blood 08/15/2022 3:05 AM EDT 08/15/2022 3:16 AM EDT Narrative Resulting Agency Comment Spec In Lab Tyler Cobb MD HEMATOLOGY ORDERABLE S Performing Organization Address City/[facility]/[place] [address] * (ABNORMAL) Differential, Automated (08/15/2022 3:05 AM EDT) Neutrophil % 89.8 % [facility] Neutrophil Absolute 35.76(H) 1.70 - 6.10 x10(3)/mc L [facility] Lymph % 2.3 % [facility] Lymphocytes Abs 0.9 0.9 - 3.2 x10(3)/mc L [facility] Monocyte % 4.6 % [facility] Monocyte Abs 1.8(H) 0.3 - 0.9 x10(3)/mc L [facility] Eos % 0.5 % [facility] Eosinophils Abs 0.2 0.0 - 0.4 x10(3)/ L [facility] Basophil % 0.1 % [facility] Baso Absolute 0.0 0.0 - 0.1 x10(3)/ L [facility] Immature Gran % 2.70 % [facility] Comment: Immature granulocytes(IG's)percentage and absolute count will include metamyelocytes, myelocytes, and promyelocytes. Blood smears from CBCs yielding IG's will be scanned manually for concordance. If this scan disagrees with the automated IG or if promyelocytes are noted, a manual differential will be performed. Immature Gran Absolute 1.08(H) 0.00 - 0.04 x10(3)/ L [facility] Blood 08/15/2022 3:05 AM EDT 08/15/2022 3:16 AM EDT Narrative Resulting Agency Comment Spec In Lab Tyler Cobb MD HEMATOLOGY ORDERABLE S [facility] [place] [address] * (ABNORMAL) Hemogram (08/15/2022 3:05 AM EDT) White Blood Cell 39.8(Critica l) 4.0 - 9.5 x10(3)/ L [facility] Comment: This result has been called to MIROSLAVA BERRY by Cedric Forbes on 08 15 2022 at 0341, and has been read back. Red Blood Cell 5.08 4.00 - 5.21 x10(6)/mc L [facility] Hemoglobin 10.2(L) 11.7 - 15.5 g/dL [facility] Hematocrit 34.4(L) 35.7 - 45.8 % [facility] Mean Cell Volume 67.7(L) 82.6 - 94.4 fL [facility] Mean Cell Hemoglobin 20.1(L) 27.1 - 32.0 pg [facility] Mean Cell Hemoglobin Concentration 29.7(L) 31.7 - 35.0 g/dL [facility] Platelet 350 145 - 357 x10(3)/mc L [facility] RDW Standard Deviation 68.0(H) 37.0 - 46.0 fL [facility] RDW coefficient of variation 29.2(H) 11.5 - 14.1 % [facility] Mean Platelet Volume Not Measured 7.6 - 12.9 fL [facility] NRBC% auto 0.3 % [facility] NRBC Absolute 0.130(H) 0.000 - 0.000 x10(3)/mc L [facility] Blood 08/15/2022 3:05 AM EDT 08/15/2022 3:16 AM EDT Narrative Resulting Agency Comment Spec In Lab Tyler Cobb MD HEMATOLOGY ORDERABLE S [facility] [place] [address] * (ABNORMAL) Hemoglobin A1c (08/15/2022 3:05 AM EDT) Hemoglobin A1c 6.2(H) 4.3 - 5.6 % [facility] Comment: Reference Range: 4.3 - 5.6% [...] Mellitus, Diabetes Care 2013; 36: Suppl. 1, S02-23 Estimated Average Glucose 130 mg/dL [facility] Comment: eAG equivalents for HbA1c percentages: [...] into estimated average glucose values. ??Diabetes Care 2008:31(8):5623-2096. Blood 08/15/2022 3:05 AM EDT 08/15/2022 3:16 AM EDT Narrative Resulting Agency Comment Spec In Lab Carlos Terry MD CHEMISTRY ORDERABLES [facility] [place] [address] * Heparin (unfractionated) Level (08/15/2022 3:05 AM EDT) UF Heparin 0.92 IU/mL [facility] Comment: Heparin (anti-Xa) levels [...] MD HEMATOLOGY ORDERABLE S Performing Organization Address [facility] Co de Phone Number [facility] [place] [address] * (ABNORMAL) Phosphorus (08/15/2022 3:05 AM EDT) Phosphorus 5.3(H) 2.5 - 4.5 mg/dL [facility] Blood 08/15/2022 3:05 AM EDT 08/15/2022 3:16 AM EDT Narrative Resulting Agency Comment Spec In Lab Richard Pascal MD CHEMISTRY ORDERABLES Performing Organization Address [facility] [facility] Co de Phone Number [facility] [place] [address] * Magnesium (08/15/2022 3:05 AM EDT) Magnesium 0.90 0.69 - 1.07 mmol/L [facility] Blood 08/15/2022 3:05 AM EDT 08/15/2022 3:16 AM EDT Narrative Resulting Agency Comment Spec In Lab Richard Pascal MD CHEMISTRY ORDERABLES Performing Organization Address [facility] Co de Phone Number [facility] [place] [address] * (ABNORMAL) Urinalysis Microscopic Exam (08/15/2022 1:50 AM EDT) RBC, Urine 15(H) 0 - 4 /HPF [facility] Comment: Interpret results with caution, microscopic results are from suboptimal specimen volume WBC, Urine 5 0 - 5 /HPF [facility] Comment: Interpret results with caution, microscopic results are from suboptimal specimen volume Bacteria, Urine Many(A) None /HPF [facility] Comment: Interpret results with caution, microscopic results are from suboptimal specimen volume Squamous Epithelial Cells Raw Data, Urine 4 <=4 /HPF [facility] Hyaline Casts, Urine <1 0 - 2 /LPF [facility] Comment: Interpret results with caution, microscopic results are from suboptimal specimen volume Indwelling Catheter Urine 08/15/2022 1:50 AM EDT 08/15/2022 1:55 AM EDT Narrative Resulting Agency Comment Spec In Lab Tyler Cobb MD URINE ORDERABLES [facility] [place] [address] * (ABNORMAL) Urinalysis with reflex Culture (08/15/2022 1:50 AM EDT) Glucose, Urine Dipstick Negative Negative mg/dL [facility] Protein, Urine Dipstick Trace(A) Negative mg/dL [facility] Bilirubin, Urine Dipstick Negative Negative mg/dL [facility] Comment: Clinical correlation required for positive Urine Bilirubin results as false positive may occur with some drugs and drug related products. If a false positive is suspected a serum total bilirubin should be considered if clinically indicated. Urobilinogen, Urine Dipstick Normal Normal mg/dL [facility] pH, Urn (dipstick) 5.5 5.0 - 8.0 [facility] Blood, Urine Dipstick Large(A) Negative mg/dL [facility] Ketone, Urine Dipstick Trace(A) Negative mg/dL [facility] Nitrite, Urine Dipstick Negative Negative [facility] Leukocytes, Urine Dipstick Trace(A) Negative [facility] Appearance, Urine Dipstick Cloudy(A) Clear [facility] Specific [place] Urine Automated 1.015 1.005 - 1.030 [facility] Color, Urine Dipstick Yellow Yellow [facility] Reflex to Culture No [facility] Indwelling Catheter Urine 08/15/2022 1:50 AM EDT 08/15/2022 1:55 AM EDT Narrative Resulting Agency Comment Spec In Lab Carlos Terry MD URINE ORDERABLES [facility] [place] [address] * XR Chest One View (08/15/2022 1:14 [...] who have questions please contact the health animal care taker that requested your imaging first. ? Electronically signed by: Davi Terry MD, [facility] ([phone]), at 08/15/2022 3:55 AM Narrative 08/15/2022 3:55 AM EDT EXAMINATION: XR CHEST ONE VIEW CLINICAL HISTORY: confirm Aguilar placement TECHNIQUE: 1 view of the chest COMPARISON: 08/15/2022 Procedure Note Davi Terry MD - 08/15/2022 EXAMINATION: XR CHEST ONE VIEW CLINICAL HISTORY: confirm Aguilar placement TECHNIQUE: 1 view of the chest [...] patients who have questions please contactthe health animal care taker that requested your imaging first. Carlos Terry MD IMG DX ORDERABLES * (ABNORMAL) Coox2 (08/15/2022 1:13 AM EDT) pO2, Coox 36 mmHg [facility] Hgb Blood Gas 11.4(L) 11.7 - 15.5 g/dL [facility] Oxyhemoglobin, Coox 63.3 % [facility] Carboxyhemoglo bin, Coox 0.6 % [facility] Comment: Nonsmokers: 0.5-1.5% COHB Smokers: Variable, but usually less than 10% Toxic: 20-30% COHB Lethal: Greater than 60% COHB Methemoglobin, Coox 0.8 <=1.5 % [facility] Source Coox Mixed Venous [facility] Blood 08/15/2022 1:13 AM EDT 08/15/2022 1:13 AM EDT Carlos Terry MD POINT OF CARE TEST O RDERABLES Performing Organization Address City/[facility] Co de Phone Number [facility] [place] [address] * Blood culture (08/15/2022 1:10 AM EDT) Blood Culture No growth at 5 days. [facility] Blood 08/15/2022 1:10 AM EDT 08/15/2022 2:05 AM EDT Comment:neck Narrative Resulting Agency Comment Spec In Lab Carlos Terry MD MICROBIOLOGY - BLOOD ORDERABLES Performing Organization Address City/[facility] [place] [place] [address] * XR Chest One View (08/15/2022 1:00 [...] who have questions please contact the health animal care taker that requested your imaging first. ? Electronically signed by: Davi Terry MD, [facility] ([phone]), at 08/15/2022 3:53 AM Narrative 08/15/2022 3:53 AM EDT EXAMINATION: XR [...] patients who have questions please contactthe health animal care taker that requested your imaging first. Carlos Terry MD IMG DX ORDERABLES * MRSA PCR Screen ([facility]/CGP/APD/NLH) (08/15/2022 12:50 AM EDT) MRSA PCR Negative Negative [facility] MRSA (Interp) Methicillin-resist ant Staphylococcus aureus (MRSA) is NOT DETECTED The MRSA target DNA sequences (mec and SCC) were not detected within the acceptable ranges using the Xpert MRSA NxG on the GeneXpert Dx System (Audemat). This suggests the absence of MRSA in the patient specimen submitted for testing. This test is cleared by the U.S. Food and Drug Administration for clinical use and its performance characteristics have been verified by the [facility] at [facility]. This result does not rule out the presence of any other organisms. Rare false negative results may occur if MRSA is present at low concentrations with much higher concentrations of other organisms including MRSE or S. aureus with an empty SCC cassette. [facility] Comment: [VERIFIED DATE]08.17.22 Verified By:Shannon Smiley (Electronic Signature) Nasopharyngeal Swab 08/16/19 12:50 AM EDT 08/17/2022 8:38 AM EDT Comment:Specimen Type->Nasop haryngeal Swab Narrative Resulting Agency Comment Spec In Lab Carlos Terry MD MOLECULAR ORDERABLES [facility] [place] [address] * TSH [place] (08/15/2022 12:00 AM EDT) Thyroid Stimulating Hormone 0.28 0.27 - 4.20 mcIU/mL [facility] Comment: Reference Interval (mcIU/mL): Females: ??First Trimester: 0.23-3.88 ??Second Trimester: 0.22-3.90 ??Third Trimester: 0.44-4.66 Blood Venous Draw / Unknown 08/15/2022 08/15/2022 12:26 AM EDT Narrative Resulting Agency Comment Spec In Lab Jigar Streeter MD CHEMISTRY ORDERABLES Performing Organization Address [facility]/ZIP Co de Phone Number [facility] [place] [address] * Gold Tube HOLD (08/15/2022 12:00 AM EDT) Gold Hold Sample in lab. [facility] Blood Venous Draw / Unknown 08/15/2022 08/15/2022 12:16 AM EDT Tyler Cobb MD CHEMISTRY ORDERABLES Performing Organization Address [facility] Co de Phone Number [facility] [place] [address] * (ABNORMAL) APTT (08/15/2022 12:00 AM EDT) Partial Thromboplastin Time 154(Criti tonya) 25 - 37 sec [facility] Comment: Critical Result called by ?? [...] Lab Carlos Terry MD HEMATOLOGY ORDERABLE S [facility] [place] [address] * (ABNORMAL) Prothrombin Time (08/15/2022 12:00 AM EDT) Prothrombin Time 22.3(H) 9.4 - 12.5 sec [facility] International Normalization Ratio 2.0 [facility] Comment: An INR <2.0 indicates adequate [...] MD HEMATOLOGY ORDERABLE S Performing Organization Address [facility] Co de Phone Number [facility] [place] [address] * (ABNORMAL) BLOOD GAS 2 ARTERIAL (08/14/2022 11:57 PM EDT) pH, Arterial 7.25(Criti tonya) 7.35 - 7.45 [facility] Comment:Noted by instrument maker. PCO2, Arterial 42 35 - 45 mmHg [facility] PO2, Arterial 242(H) 85 - 104 mmHg [facility] Bicarbonate, Arterial 17.9(L) 20.0 - 26.0 mmol/L [facility] Base Excess, Arterial -9.3(L) -3.0 - 3.0 mmol/L [facility] Hgb Blood Gas 11.2(L) 11.7 - 15.5 g/dL [facility] Oxyhemoglobin, Arterial 98.0(H) 94.0 - 97.0 % [facility] Carboxyhemoglob in, Arterial 0.3 % [facility] Comment: Nonsmokers: 0.5-1.5% COHB Smokers: Variable, but usually less than 10% Toxic: 20-30% COHB Lethal: Greater than 60% COHB Methemoglobin, Arterial 0.9 <=1.5 % [facility] Na Whole Blood 140 135 - 145 mmol/L [facility] K Whole Blood 3.5 3.5 - 5.0 mmol/L [facility] Comment: Please note: Patients with WBC >100,000 may have falsely elevated Potassium levels. Contact the Clinical Chemistry Laboratory if there are any questions. ICa Whole Blood 1.16 1.15 - 1.33 mmol/L [facility] Comment: Note: ??Total bilirubin higher than 20 mg/dL may lead to falsely low ionized calcium. CL Whole Blood 110(H) 98 - 107 mmol/L [facility] Gluc Whole Bld 235(H) 65 - 199 mg/dL [facility] Comment:Diabetes: >=200 mg/d L plus symptoms. Lactate WB 2.6(H) 0.5 - 2.2 mmol/L [facility] FIO2 Art 60 % [facility] PF Ratio Art 403 [facility] Blood 08/14/2022 11:5 7 PM EDT 08/14/2022 11:57 PM EDT Carlos Terry MD POINT OF CARE TEST O RDERABLES Performing Organization Address City/[facility]/ZIP Co de Phone Number [facility] [place] [address] * Scan, Peripheral Blood (08/14/2022 11:55 PM EDT) Plat estimate Increased [facility] RBC Morphology Abnormal [facility] Microcyte 6-10 /HPF [facility] Hypochromia Moderate [facility] Connor Cells gtr than 10 /HPF [facility] Platelet Clumps Present [facility] Blood 08/14/2022 11:5 5 PM EDT 08/15/2022 12:06 AM EDT Narrative Resulting Agency Comment Spec In Lab Tyler Cobb MD HEMATOLOGY ORDERABLE S Performing Organization Address City/[facility]/ZIP Co de Phone Number [facility] [place] [address] * Vancomycin Level, Random (08/14/2022 11:55 PM EDT) Vancomycin, Random 12.1 mg/L [facility] Comment: This level is for determination of the patient's vancomycin dleb-esmft-mwe-curve (AUC) value. Contact the inpatient pharmacy for interpretation. Blood Venous Draw / Unknown 08/14/2022 11:55 PM EDT 08/15/2022 12:11 AM EDT Carlos Terry MD CHEMISTRY ORDERABLES [facility] [place] [address] * (ABNORMAL) Differential, Automated (08/14/2022 11:55 PM EDT) [facility] Neutrophil % 91.3 % [facility] Neutrophil Absolute 33.56(H) 1.70 - 6.10 x10(3)/mc L [facility] Lymph % 1.2 % [facility] Lymphocytes Abs 0.4(L) 0.9 - 3.2 x10(3)/mc L [facility] Monocyte % 4.4 % [facility] Monocyte Abs 1.6(H) 0.3 - 0.9 x10(3)/mc L [facility] Eos % 0.5 % [facility] Eosinophils Abs 0.2 0.0 - 0.4 x10(3)/mc L [facility] Basophil % 0.5 % [facility] Baso Absolute 0.2(H) 0.0 - 0.1 x10(3)/mc L [facility] Immature Gran % 2.10 % [facility] Comment: Immature granulocytes(IG's)percentage and absolute count will include metamyelocytes, myelocytes, and promyelocytes. Blood smears from CBCs yielding IG's will be scanned manually for concordance. If this scan disagrees with the automated IG or if promyelocytes are noted, a manual differential will be performed. Immature Gran Absolute 0.77(H) 0.00 - 0.04 x10(3)/mc L [facility] Blood 08/14/2022 11:5 5 PM EDT 08/15/2022 12:06 AM EDT Narrative Resulting Agency Comment Spec In Lab Tyler Cobb MD HEMATOLOGY ORDERABLE S [facility] [place] [address] * (ABNORMAL) Hemogram (08/14/2022 11:55 PM EDT) White Blood Cell 36.7(Critica l) 4.0 - 9.5 x10(3)/mc L [facility] Comment: This result has been called to HARLEY CASON by Cedric Forbes on 08 15 2022 at 0018, and has been read back. Red Blood Cell 5.28(H) 4.00 - 5.21 x10(6)/mc L [facility] Hemoglobin 10.7(L) 11.7 - 15.5 g/dL [facility] Hematocrit 35.9 35.7 - 45.8 % [facility] Mean Cell Volume 68.0(L) 82.6 - 94.4 fL [facility] Mean Cell Hemoglobin 20.3(L) 27.1 - 32.0 pg [facility] Mean Cell Hemoglobin Concentration 29.8(L) 31.7 - 35.0 g/dL [facility] Platelet 370(H) 145 - 357 x10(3)/mc L [facility] RDW Standard Deviation 68.2(H) 37.0 - 46.0 fL [facility] RDW coefficient of variation 29.3(H) 11.5 - 14.1 % [facility] Mean Platelet Volume Not Measured 7.6 - 12.9 fL [facility] NRBC% auto 0.2 % [facility] NRBC Absolute 0.080(H) 0.000 - 0.000 x10(3)/mc L [facility] Blood 08/14/2022 11:5 5 PM EDT 08/15/2022 12:06 AM EDT Narrative Resulting Agency Comment Spec In Lab Tyler Cobb MD HEMATOLOGY ORDERABLE S [facility] [place] [address] * Blood culture (08/14/2022 11:55 PM EDT) Blood Culture No growth at 5 days. [facility] Blood 08/14/2022 11:5 5 PM EDT 08/15/2022 1:51 AM EDT Comment:R wrist Narrative Resulting Agency Comment Spec In Lab Carlos Terry MD MICROBIOLOGY - BLOOD ORDERABLES [facility] [place] [address] * (ABNORMAL) pro-Brain Natriuretic Peptide (08/14/2022 11:55 PM EDT) NT-proBNP >35,000(H) <=124 pg/mL [facility] Blood 08/14/2022 11:5 5 PM EDT 08/15/2022 12:06 AM EDT Narrative Resulting Agency Comment Spec In Lab Carlos Terry MD CHEMISTRY ORDERABLES Performing Organization Address City/[facility]/ZIP Co de Phone Number [facility] [place] [address] * (ABNORMAL) Phosphorus (08/14/2022 11:55 PM EDT) Phosphorus 5.9(H) 2.5 - 4.5 mg/dL [facility] Blood 08/14/2022 11:5 5 PM EDT 08/15/2022 12:06 AM EDT Narrative Resulting Agency Comment Spec In Lab Carlos Terry MD CHEMISTRY ORDERABLES Performing Organization Address [facility] Co de Phone Number [facility] [place] [address] * Magnesium (08/14/2022 11:55 PM EDT) Magnesium 0.97 0.69 - 1.07 mmol/L [facility] Blood 08/14/2022 11:5 5 PM EDT 08/15/2022 12:06 AM EDT Narrative Resulting Agency Comment Spec In Lab Carlos Terry MD CHEMISTRY ORDERABLES [facility] [place] [address] * (ABNORMAL) Troponin (08/14/2022 11:55 PM EDT) Troponin-T, High Sensitivity 617(H) <=14 ng/L [facility] Comment: This patient's troponin T concentration [...] troponin value can be found in the [facility] Laboratory Test Catalog Troponin - [facility] Laboratory Test Catalog Reference: Fourth Ryder Definition of Myocardial Infarction. Journal of the [place] [employer] 2018;72:9767-0561 Blood 08/14/2022 11:5 5 PM EDT 08/15/2022 12:06 AM EDT Narrative Resulting Agency Comment Spec In Lab Carlos Terry MD CHEMISTRY ORDERABLES Performing Organization Address City/[facility]/ZIP Co de Phone Number [facility] [place] [address] * (ABNORMAL) Basic Metabolic Panel (non-fasting) (08/14/2022 11:55 PM EDT) Glucose 258(H) 65 - 199 mg/dL [facility] Comment:Diabetes: >=200 mg/d L plus symptoms Blood Urea Nitrogen 36(H) 8 - 18 mg/dL [facility] Creatinine 1.40(H) 0.70 - 1.20 mg/dL [facility] Sodium 141 135 - 145 mmol/L [facility] Potassium 4.0 3.5 - 5.0 mmol/L [facility] Comment: Please note: ??Patients with WBC >100,000 may have falsely elevated Potassium levels. ??For accurate Potassium quantification in these patients send serum separator tube (gold top) for subsequent determinations. ??Contact the Clinical Chemistry Laboratory if there are any questions. Chloride 107 98 - 107 mmol/L [facility] Carbon Dioxide 17(L) 22 - 31 mmol/L [facility] Anion Gap 17(H) 5 - 15 mmol/L [facility] Calcium 8.5 8.5 - 10.5 mg/dL [facility] Est Glomerular Filtration Rate 43(L) >=60 mL/min/1. 73 m?? [facility] Comment: This patient's estimated GFR was [...] In Lab Carlos Terry MD CHEMISTRY ORDERABLES [facility] [place] [address] * (ABNORMAL) Point of Care Blood Gas Historical (08/14/2022 10:32 PM EDT) pH, POC 7.15(Crit ical) 7.35 - 7.45 [facility] Comment:Critical result OK - [facility] pCO2, POC 68(Critic al) 35 - 45 mmHg [facility] Comment:Critical result OK - [facility] pO2, POC 47(Critic al) 85 - 104 mmHg [facility] Comment:Critical result OK - [facility] Base Excess, POC -5.0(L) -3.0 - 3.0 mmol/L [facility] Bicarbonate, POC 23.9 20.0 - 26.0 mmol/L [facility] Sodium, POC 142 135 - 145 mmol/L [facility] POC Potassium 3.8 3.5 - 5.0 mmol/L [facility] Ionized Calcium, POC 1.21 1.15 - 1.33 mmol/L [facility] POC Hematocrit 36.0 34.0 - 45.0 % [facility] POC Calc Hgb 12.2 11.2 - 15.7 g/dL [facility] Comment:The calculation of h emoglobin from hematocrit assumes a normal MCHC. POC Bgas Loc DH[facility] Blood 08/14/2022 10:3 2 PM EDT 08/16/2022 12:00 PM EDT Carlos Terry MD CHEMISTRY ORDERABLES [facility] [place] [address] * Film Library- Storage Only DX Chest [...] is for storage only. Audi Serna MD [facility] [place] ORD ERABLES * Film Library- Storage Only DX Chest (08/12/2022 12:05 AM EDT) Narrative Dicom, Auditing User - 08/15/2022 8:37 AM EDT This exam is auto-finalizing. It's purpose is for storage only. Audi Serna MD [facility] [place] ORD ERABLES * Film Library- Storage Only CT Chest (08/12/2022 12:00 AM EDT) Narrative Dicom, Auditing User - 08/15/2022 8:36 AM EDT This exam is auto-finalizing. It's purpose is for storage only. Audi Serna MD [facility] [place]D ERABLES * Film Library- Storage Only DX Chest (08/08/2022 12:15 AM EDT) Narrative Dicom, Auditing User - 08/15/2022 8:43 AM EDT This exam is auto-finalizing. It's purpose is for storage only. Audi Serna MD [facility] [place]D ERABLES * Film Library- Storage Only DX Pelvis (08/08/2022 12:10 AM EDT) Narrative Dicom, Auditing User - 08/15/2022 8:37 AM EDT This exam is auto-finalizing. It's purpose is for storage only. Audi Serna MD [facility] [place]D ERABLES * Film Library- Storage Only DX Lower Extremity (08/08/2022 12:05 AM EDT) Narrative Dicom, Auditing User - 08/15/2022 8:37 AM EDT This exam is auto-finalizing. It's purpose is for storage only. Audi Serna MD [facility] [...] 75 mg, Oral, DAILY, First dose on [place] 08/16/22 at 0900, Until Discontinued, Routine Given [...] DAY, First dose (after last modification) on [place] 08/23/22 at 0900, Until Discontinued, Each mL contains 12 mg of elemental iron, Routine Given 09/08/2022 9:57 AM EDT 30 0 mg Given 09/06/2022 9:31 AM EDT 300 mg Given 09/04/2022 8:12 AM EDT 300 mg ferrous sulfate (60 mg/mL) oral liquid 300 mg 300 mg, Per G Tube, EVERY OTHER DAY, First dose (after last modification) on [facility] 09/12/22 at 0900, Until Discontinued, Each mL contains 12 mg of elemental iron, Routine Given 09/24/2022 9:16 AM EDT 300 mg Given 09/22/2022 9:27 AM EDT 300 mg Given 09/20/2022 9:44 AM EDT 300 mg folic acid (Vitamin B9) tablet 1,000 mcg 1,000 mcg, Oral, DAILY, First dose on [facility] 08/15/22 at 0900, Until Discontinued, Routine Given 08/22/2022 9:11 AM EDT 1,000 mcg Given 08/21/2022 8:14 AM EDT 1,000 mcg Given 08/20/2022 8:48 AM EDT 1,000 mcg folic acid (Vitamin B9) tablet 1,000 mcg 1,000 mcg, Per NG tube, DAILY, First dose (after last modification) on [facility] 08/23/22 at 0900, Until Discontinued, Routine Given 09/09/2022 10:06 AM EDT 1,000 mcg Given 09/08/2022 9:57 AM EDT 1,000 mcg Given 09/07/2022 8:42 AM EDT 1,000 mcg folic acid (Vitamin B9) tablet 1,000 mcg 1,000 mcg, Per G Tube, DAILY, First dose (after last modification) on [facility] 09/12/22 at 0900, Until Discontinued, Routine Given [...] restart at 50% of previous rate. Call packing house laborer if goal not achieved at maximum rate. [...] restart at 50% of previous rate. Call packing house laborer if goal not achieved at maximum rate. [...] Until Wed08/31/22 at 1651, Cycle x12hrs from 1435-3859 Administer flushes and check residuals per policy, Which tube feed product? Peptamen AF, Strength: FULL Strength, Initial Rate: (mL/hr): 45, Advance by: (mL): 10, Advance every: Q4H, Goal final rate: (mL/hr): 98, Additional Information (if any): Cycle x12hrs from 7407-7122 New Bag 08/31/2022 5:54 AM EDT 1,176 mLs 98 mL/hr Rate/Dose Verify 08/30/2022 9:00 AM EDT 98 mL/h r New Bag 08/30/2022 6:03 AM EDT 1,176 mLs 98 mL/hr tube feeding diet 1,320 mL, Per NG tube, at 110 mL/hr, Cyclic-(Tube feed), Starting on Wed08/31/22 at 1745, Until Wed09/07/22 at 1445, Cycle x12hrs from 0951-8656 daily Administer flushes and check residuals per policy, Which tube feed product? Peptamen AF, Strength: FULL Strength, Additional Information (if any): Cycle x12hrs from 1882-5890 daily Rate/Dose Verify 09/07/2022 8:39 AM EDT 110 mL/hr New Bag 09/07/2022 6:11 AM EDT 1,320 mLs 110 mL/hr New Bag 09/06/2022 5:43 AM EDT 1,320 mLs 110 mL/hr tube feeding diet 1,260 mL, Per NG tube, at 90 mL/hr, Cyclic-(Tube feed), Starting on 09/07/22 at 1545, Until 09/12/22 at 1236, Cycle x 14 hrs from 1831-5337 daily Administer flushes and check residuals per policy, Which tube feed product? Peptamen AF, Strength: FULL Strength, Additional Information (if any): Cycle x 14 hrs from 7311-4608 daily Restarted 09/08/2022 5:00 PM EDT 90 mL/hr New Bag 09/07/2022 9:26 PM EDT 1,260 mLs 90 mL/hr New Bag 09/07/2022 5:14 PM EDT 1,260 mLs 90 mL/hr tube feeding diet 1,260 mL, Per G Tube, at 90 mL/hr, Cyclic-(Tube feed), Starting on 09/12/22 at 1330, Until Wed09/23/22 at 2056, Cycle x 14 hrs from 9352-5587 daily Administer flushes and check residuals per policy, Which tube feed product? Peptamen AF, Strength: FULL Strength, Additional Information (if any): Cycle x 14 hrs from 8185-4391 daily New Bag 09/17/2022 9:47 PM EDT 1,260 mLs 90 mL/hr New Bag 09/17/2022 7:26 AM EDT 1,260 mLs 90 mL/hr Rate/Dose Verify 09/16/2022 11:30 AM EDT 90 mL/ hr tube feeding diet 1,008 mL, Per G Tube, at 72 mL/hr, Cyclic-(Tube feed), Starting on Wed09/18/22 at 0600, Until Wed09/25/22 at 1327, Cycle x 14 hrs from 1468-0868 daily Administer flushes and check residuals per policy, Which tube feed product? Nutren 1.5, Additional Information (if any): Cycle x 14 hrs from 6444-9472 daily New Bag 09/24/2022 6:16 AM EDT [...] Nubia Greenwood RN) 0631 (Given - Provider: Nuiba Greenwood RN) melatonin tablet 6 mg 6 [...] Discontinued, Routine 09 (Given - Provider: Leann aHrding RN) 899 (Given - Provider: Leann Harding [...] at 1327, Cycle x 14 hrs from 7326-9839 daily Administer flushes and check residuals per policy, Which tube feed product? Nutren 1.5, Additional Information (if any): Cycle x 14 hrs from 2707-7066 daily 0600 (New Bag - Provider: Sofia [...] documented as of this encounter Care Teams Meat Service Team Member Relationship Specialty Start Date End Date Chris Stanley APRN [address] [place] [address] PCP - General Family Medicine 02/03/19 documented as of this encounter
--- OUTSIDE RECORDS SUMMARY | 2024-02-29 19:32 | XMS_ITS | Encounter Summary ---
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 Social History Tobacco [...] PM EDT Office Visit Cardiology at [address] [phone] Milagros Hernandez MD [facility] [place] [address] Scheduled Procedures Name Priority Associated Diagnoses Date/Ti me EGD, UPPER GI ENDOSCOPY (WRV U 2.09) Peptic stricture of esophagus documented as of this encounter Visit Diagnoses Diagnosis 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
--- OUTSIDE RECORDS SUMMARY | 2024-02-29 19:32 | XMS_ITS | Encounter Summary ---
Author Organization [facility] Address [facility] [place] [address] Care Team Providers Care Community Engagement Representative Name Role Phone Ana Gillespie VAUGHN Primary Care Provider [phone] Encounter Details Date Type Department Care Team (Late st Contact Info) Description 08/14/2022 Telephone Cardiology at [address] [address] Jesenia Mejía MD [facility] [place] [address] Social History Tobacco Use Types Packs/Day Years [...] 08/14/2022 Initial Contact Time: 17:36 Patient Location: [facility] Provider: Dr. Sevilla Presenting Symptoms per [...] code status and [facility] Pertinent Diagnostic Findings: - Troponin-I 1686 (ULN 60) - Pro-BNP > 35,000 - ECG sinus tachycardia with PVCs, anterior Q waves OSH Interventions: - Dobutamine 2.5 mcg/kg/shawanda - Lasix gtt 5 mg/hr - Heparin gtt - Aspirin 300 rectal BID (after hip) Plan: - Transfer to [facility] - Plavix load Above recommendations/plans are based on my conversation with the referring provider. I have not personally interviewed or examined this patient. Jesenia Mejía MD Rail Operator PGY-5 [facility] documented in this encounter Plan of Treatment Upcoming Encounters Date Type Department Care Team (Late st Contact Info) Description 03/10/2024 4:00 PM EDT Office Visit Cardiology at [address] [address] Milagros Hernandez MD [facility] [place] [address] Scheduled Procedures Name Priority Associated Diagnoses Date/Ti me EGD, UPPER GI ENDOSCOPY (WRV U 2.09) Peptic stricture of esophagus documented as of this encounter Visit Diagnoses Not on filedocumented in this encounter Care Teams Community Engagement Representative Relationship Specialty Start Date End Date nAa Gillespie APRN [address] [place] [address] PCP - General Family Medicine 02/03/19 documented as of this encounter
--- OUTSIDE RECORDS SUMMARY | 2024-02-29 19:32 | XMS_ITS | Encounter Summary ---
Author Organization [facility] [place] [address] Care Team Providers Care Risk Prevention Engineer Name Role Phone Ana Gillespie APRN Primary Care Provider [phone] Reason for Visit * Auth/Cert (Routine) Specialty Diagnoses / Procedures Referred By Esperanza rodríguez Referred To Contact Diagnoses Shock CARDIOGENIC PULMONARY EDEMA Procedures ER Carlos Melton MD [facility] [place] [address] [facility] Referral ID Status Reason Start Date Expiration Date Visits Re quested Visits Authorized [id number] 1 1 Encounter Details Date Type Department Care Team (Late st Contact Info) Description 09/11/2022 4:10 [place] [phone] Gt Urena MD [facility] [place] [address] Anesthesia Record Procedure Summary Procedure Name Responsible [...] expected post-operative course (including disposition.) Gt Lisa EXPERIMENTAL OUTBOARD MOTORS MECHANIC 1723 Recovery or ICU Handoff Sayra ent [...] side of arm), right; pressure injectable catheter ([id number]); 5 Fr; 0 cm; 33 cm; 33 [...] Procedure Summary Date: 09/11/22 Room / Location: [facility] INTERVENTIONAL RADIOLOGY 2 / [facility] Anesthesia Start: 1610 Anesthesia Stop: 1723 Procedure: PERCUTANEOUS GASTROSTOMY Diagnosis: (DYSPHAGIA) Surgeons: Aiden Flores MD Responsible Provider: Gt Urena MD Anesthesia Type: general ASA Status: 3 All Anesthesia Providers: Anesthesiologist: Gt Urena MD EXPERIMENTAL OUTBOARD MOTORS MECHANIC: Jennifer Salomon CRNA; Gt Lisa CRNA Vitals Value Taken Time BP 117/55 09/11/22 1730 Temp 37 ??C (98.6 ??F) 09/11/22 1725 Pulse 73 09/11/22 1741 Resp 14 09/11/22 1741 SpO2 93 % 09/11/22 1741 Pain Level 0 09/11/22 1730 Vitals shown include unvalidated device data. Patient Location: PACU/[facility] Level of Consciousness: Awake and Alert [...] BX performed by David Dejesus MD at [facility] ENDOSCOPY ??? PRO COLONOSCOPY, DIAGNOSTIC N/A 03/01/2020 COLONOSCOPY, DIAGNOSTIC performed by David Dejesus MD at [facility] ENDOSCOPY ??? PRO ENDOSCOPIC US EXAM, ESOPH N/A 03/31/2022 UPPER EUS- ENDOSCOPIC ULTRASOUND performed by David Dejesus MD at [facility] ENDOSCOPY ??? PRO UPPER GI ENDOSCOPY, BIOPSY N/A 04/03/2014 UPPER GASTROINTESTINAL ENDOSCOPY,WITH BIOPSY SINGLE OR MULTIPLE performed by David Dejesus MDat [facility] ENDOSCOPY ??? PRO UPPER GI ENDOSCOPY, BIOPSY N/A 03/20/2016 EGD WITH BIOPSY performed by David Dejesus MD at [facility] ENDOSCOPY ??? PRO UPPER GI ENDOSCOPY, BIOPSY N/A 11/22/2018 EGD WITH BIOPSY (WRVU 2.49) performed by David Dejesus MD at [facility] ENDOSCOPY ??? PRO UPPER GI ENDOSCOPY, BIOPSY N/A 03/01/2020 UPPER GASTROINTESTINAL ENDOSCOPY,WITH BIOPSY SINGLE OR MULTIPLE (WRVU 2.49) performed by David Dejesus MD at [facility] ENDOSCOPY ??? PRO UPPER GI ENDOSCOPY, BIOPSY N/A 09/23/2021 EGD WITH BIOPSY (WRVU 2.49) performed by David Dejesus MD at [facility] ENDOSCOPY ??? PRO UPPER GI ENDOSCOPY, BIOPSY N/A 03/31/2022 EGD WITH BIOPSY (WRVU 2.49) performed by David Dejesus MD at [facility] ENDOSCOPY ??? PRO UPPER GI ENDOSCOPY, BIOPSY N/A 07/03/2022 EGD WITH BIOPSY (WRVU 2.49) performed by David Dejesus MD at [facility] ENDOSCOPY ??? PRO UPPER GI ENDOSCOPY, DIAGNOSTIC N/A 04/03/2014 EGD, UPPER GI ENDOSCOPY performed by David Dejesus MD at [facility] ENDOSCOPY ??? PRO UPPER GI ENDOSCOPY, DIAGNOSTIC N/A 03/01/2020 EGD, UPPER GI ENDOSCOPY performed by David Dejesus MD at [facility] ENDOSCOPY ??? PRO UPPER GI ENDOSCOPY, DIAGNOSTIC N/A 09/09/2022 EGD, UPPER GI ENDOSCOPY (WRVU 2.09) performed by Ayo Russ MD at [facility] MAIN OR Social History Tobacco [...] risks discussed with patient. Plan discussed with EXPERIMENTAL OUTBOARD MOTORS MECHANIC and attending. Anesthesia Screening documented in this encounter Miscellaneous Notes * Addendum Note - Jennifer Salomon CRNA - 09/21/2022 4:11 PM EDT Addendum created 09/21/22 1611 by Jennifer Salomon CRNA Intraprocedure Meds edited documented in this encounter Plan of Treatment Upcoming Encounters Date Type Department Care Team (Late st Contact Info) Description 03/10/2024 4:00 PM EDT Office Visit Cardiology at [address] [phone] Milagros Hernandez MD [facility] [place] [address] Scheduled Procedures Name Priority Associated Diagnoses Date/Ti [...] EDT documented in this encounter Care Teams Risk Prevention Engineer Relationship Specialty Start Date End Date Ana Gillespie APRN [address] [place] [address] PCP - General Family Medicine 02/03/19 documented as of this encounter
--- OUTSIDE RECORDS SUMMARY | 2024-02-29 19:32 | XMS_ITS | Encounter Summary ---
Author Organization [facility] Address [facility] [place] [address] Care Team Providers Care Lobby Porter Name Role Phone Ana Gillespie VAUGHN Primary Care Provider [phone] Reason for Visit * Reason Onset Date Comments TeleHealth 05/20/2022 Medication and a llergy review. Encounter Details Date Type Department Care Team (Late st Contact Info) Description 05/20/2022 Tele[place] [phone] Alfonso Rose MD [facility] [place] [address] TeleHealth (Medication and allergy review. ) Social [...] PM EDT Office Visit Cardiology at [address] [phone] Milagros Hernandez MD [facility] [place] [address] Scheduled Procedures Name Priority Associated Diagnoses Date/Ti me EGD, UPPER GI ENDOSCOPY (WRV U 2.09) Peptic stricture of esophagus documented as of this encounter Visit Diagnoses Not on filedocumented in this encounter Care Teams Lobby Porter Relationship Specialty Start Date End Date Ana Gillespie APRN [address] [place] [address] PCP - General Family Medicine 02/03/19 documented as of this encounter
--- OUTSIDE RECORDS SUMMARY | 2024-02-29 19:32 | XMS_ITS | Encounter Summary ---
Author Organization [facility] Address [facility] [place] [address] Care Team Providers Care Director Of Category Management Name Role Phone Ana Gillespie APRN Primary Care Provider [phone] Encounter Details Date Type Department Care Team (Latest Contact Info) Description 08/14/2022 9:30 PM EDT - 08/14/2022 11:10 PM EDT Hospital En[place] [phone] Carlos Terry MD [facility] [place] [address] Discharge Disposition: Home Social History Tobacco Use [...] meter kit. 1 each 0 12/14/2014 Insulin [place], Disposable, (BD INSULIN PEN NEEDLE UF MINI) 31 x 07/23 NeedleIndications:Di abetes mellitus type 2, uncontrolled 1 Device by [facility].(Non-Drug; Combo Route) route [...] PM EDT Office Visit Cardiology at [address] [address] Milagros Hernandez MD [facility] [place] [address] Scheduled Procedures Name Priority Associated Diagnoses Date/Ti me EGD, UPPER GI ENDOSCOPY (WRV U 2.09) Peptic stricture of esophagus documented as of this encounter Visit Diagnoses Not on filedocumented in this encounter Care Teams Director Of Category Management Relationship Specialty Start Date End Date Ana Gillespie APRN [address] [place] [address] PCP - General Family Medicine 02/03/19 documented as of this encounter
--- OUTSIDE RECORDS SUMMARY | 2024-02-29 19:32 | XMS_ITS | Encounter Summary ---
Author Organization [facility] Address [facility] [place] [address] Care Team Providers Care Swimming Pool Installer Name Role Phone Ana Gillespie APRN Primary Care Provider [phone] Encounter Details Date Type Department Care Team (Late st Contact Info) Description 06/23/2022 Telephone [place] [address] Chiquita James, RN Social History [...] PM EDT Office Visit Cardiology at [address] [phone] Milagros Hernandez MD [facility] [address] Scheduled Procedures Name Priority Associated Diagnoses Date/Ti me EGD, UPPER GI ENDOSCOPY (WRV U 2.09) Peptic stricture of esophagus documented as of this encounter Visit Diagnoses Not on filedocumented in this encounter Care Teams Swimming Pool Installer Relationship Specialty Start Date End Date Ana Gillespie APRN [address] [place] [address] PCP - General Family Medicine 02/03/19 documented as of this encounter
--- OUTSIDE RECORDS SUMMARY | 2024-02-29 19:32 | XMS_ITS | Encounter Summary ---
Author Organization [facility] Address [facility] [place] [address] Care Team Providers Care Wood Window And Door Craftsman Name Role Phone Ana Gillespie CARVER HAND Primary Care Provider [phone] Encounter Details Date Type Department Care Team (Late st Contact Info) Description 08/24/2022 Orders [place] [phone] Chace Carrera [facility] [place] [address] Social History Tobacco Use Types Packs/Day Years [...] Office Visit Cardiology at [address] [phone] Milagros Hernandez MD [facility] [place] [address] Scheduled Procedures Name Priority Associated Diagnoses Date/Ti me EGD, UPPER GI ENDOSCOPY (WRV U 2.09) Peptic stricture of esophagus documented as of this encounter Visit Diagnoses Not on filedocumented in this encounter Care Teams Wood Window And Door Craftsman Relationship Specialty Start Date End Date Ana Gillespie APRN [address] [place] [address] PCP - General Family Medicine 02/03/19 documented as of this encounter
--- OUTSIDE RECORDS SUMMARY | 2024-02-29 19:32 | XMS_ITS | Encounter Summary ---
Author Organization [facility] Address [facility] [place] [address] Care Team Providers Care Excelsior Machine Tender Name Role Phone Ana Gillespie VAUGHN Primary Care Provider Encounter Details Date Type Department Care Team (Late st Contact Info) Description 08/08/2022 12:05 AM EDT Ancillary Procedure Radiology Library at [facility] [place] [address] Social History Tobacco Use Types Packs/Day Years [...] PM EDT Office Visit Cardiology at [address] [address] Milagros Hernandez MD [facility] [place] [address] Scheduled Procedures Name Priority Associated Diagnoses Date/Ti [...] is for storage only. Ayo Serna MD [facility] FILM LIBRARY ORD ERABLES documented in this encounter Visit Diagnoses Not on filedocumented in this encounter Care Teams Excelsior Machine Tender Relationship Specialty Start Date End Date Ana Gillespie APRN [address] [place] [address] PCP - General Family Medicine 02/03/19 documented as of this encounter
--- OUTSIDE RECORDS SUMMARY | 2024-02-29 19:32 | XMS_ITS | Encounter Summary ---
[place] [address] Care Team Providers Care Dry Cleaner Apprentice Name Role Phone Ana Gillespie VAUGHN Primary Care Provider [phone] Encounter Details Date Type Department Care Team (Late st Contact Info) Description 06/23/2022 Telephone [place] [phone] Jessica Beckman Social History Tobacco Use Types [...] PM EDT Office Visit Cardiology at [address] [phone] Milagros Hernandez MD [facility] [place] [address] Scheduled Procedures Name Priority Associated Diagnoses Date/Ti me EGD, UPPER GI ENDOSCOPY (WRV U 2.09) Peptic stricture of esophagus documented as of this encounter Visit Diagnoses Not on filedocumented in this encounter Care Teams Dry Cleaner Apprentice Relationship Specialty Start Date End Date Ana Gillespie APRN [address] [place] [address] PCP - General Family Medicine 02/03/19 documented as of this encounter
--- OUTSIDE RECORDS SUMMARY | 2024-02-29 19:32 | XMS_ITS | Encounter Summary ---
Author [place] [address] Care Team Providers Care Telephone Station Installer Name Role Phone Ana Gillespie VAUGHN Primary Care Provider [phone] Encounter Details Date Type Department Care Team (Late st Contact Info) Description 05/28/2022 Telephone [place] [phone] Chiquita James, RN Social History Tobacco Use [...] PM EDT Office Visit Cardiology at [address] [phone] Milagros Hernandez MD [facility] [place] [address] Scheduled Procedures Name Priority Associated Diagnoses Date/Ti me EGD, UPPER GI ENDOSCOPY (WRV U 2.09) Peptic stricture of esophagus documented as of this encounter Visit Diagnoses Not on filedocumented in this encounter Care Teams Telephone Station Installer Relationship Specialty Start Date End Date Ana Gillespie APRN [address] [place] [address] PCP - General Family Medicine 02/03/19 documented as of this encounter
--- OUTSIDE RECORDS SUMMARY | 2024-02-29 19:32 | XMS_ITS | Encounter Summary ---
Author Organization [facility] [place] [address] Care Team Providers Care Mirror Silverer Name Role Phone Ana Gillespie APRN Primary Care Provider [phone] Encounter Details Date Type Department Care Team (Late st Contact Info) Description 07/03/2022 8:40 AM EST Anesthesia [place] [phone] Shanell Taylor MD [facility] DR [place] [address] Halima Jeong CRNA [facility] [address] [place] [address] Anesthesia Record Procedure Summary Procedure Name Responsible [...] Procedure Summary Date: 07/03/22 Room / Location: [facility] / [facility] Anesthesia Start: 839 Anesthesia Stop: 900 Procedure: EGD WITH BIOPSY (WRVU 2.49) (Trunk) 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 Patient Location: PACU/[facility] Level of Consciousness: Conscious but [...] by David Dejesus MD at [facility] ??? PRO COLONOSCOPY, DIAGNOSTIC N/A 03/01/2020 COLONOSCOPY, DIAGNOSTIC performed by David Dejesus MD at [facility] ??? PRO ENDOSCOPIC US EXAM, ESOPH N/A 03/31/2022 UPPER EUS- ENDOSCOPIC ULTRASOUND performed by David Dejesus MD at [facility] ??? PRO UPPER GI ENDOSCOPY, BIOPSY N/A 04/03/2014 UPPER GASTROINTESTINAL ENDOSCOPY,WITH BIOPSY SINGLE OR MULTIPLE performed by David [facility]jesus MDat [facility] ??? PRO UPPER GI ENDOSCOPY, BIOPSY N/A 03/20/2016 EGD WITH BIOPSY performed by David Dejesus MD at [facility] ??? PRO UPPER GI ENDOSCOPY, BIOPSY N/A 11/22/2018 EGD WITH BIOPSY (WRVU 2.49) performed by David Dejesus MD at [facility] ??? PRO UPPER GI ENDOSCOPY, BIOPSY N/A 03/01/2020 UPPER GASTROINTESTINAL ENDOSCOPY,WITH BIOPSY SINGLE OR MULTIPLE (WRVU 2.49) performed by David Dejesus MD at [facility] ??? PRO UPPER GI ENDOSCOPY, BIOPSY N/A 09/23/2021 EGD WITH BIOPSY (WRVU 2.49) performed by David Dejesus MD at [facility] ??? PRO UPPER GI ENDOSCOPY, BIOPSY N/A 03/31/2022 EGD WITH BIOPSY (WRVU 2.49) performed by David Dejesus MD at [facility] ??? PRO UPPER GI ENDOSCOPY, DIAGNOSTIC N/A 04/03/2014 EGD, UPPER GI ENDOSCOPY performed by David Dejesus MD at [facility] ??? PRO UPPER GI ENDOSCOPY, DIAGNOSTIC N/A 03/01/2020 EGD, UPPER GI ENDOSCOPY performed by David Dejesus MD at [facility] Social History Tobacco Use ??? Smoking [...] with patient and spouse. Plan discussed with CUPROUS CHLORIDE HELPER and attending. Anesthesia Screening Code Status: Full code I discussed the risks of general anesthesia as detailed by the preoperative anesthesia consent withthis patient. The patient demonstrated adequate understanding and acknowledged these risks and wishes to proceed with scheduled surgery. All questions related to anesthetic care were welcomed and answered to satisfaction. Shanell Taylor MD MS Anesthesiologist, [facility] Pager [phone] documented in this encounter Plan of Treatment Upcoming Encounters Date Type Department Care Team (Late st Contact Info) Description 03/10/2024 4:00 PM EDT Office Visit Cardiology at [address] [address] Milagros Hernandez MD [facility] [place] [address] Scheduled Procedures Name Priority Associated Diagnoses Date/Ti [...] mg documented in this encounter Care Teams Mirror Silverer Relationship Specialty Start Date End Date Ana Gillespie APRN [address] [place] [address] PCP - General Family Medicine 02/03/19 documented as of this encounter
--- OUTSIDE RECORDS SUMMARY | 2024-02-29 19:32 | XMS_ITS | Encounter Summary ---
Author Organization [facility] [address] Care Team Providers Care Database Administration Project Manager Name Role Phone Ana Gillespie VAUGHN Primary Care Provider [phone] Reason for Visit * Auth/Cert (Routine) Specialty Diagnoses / Procedures Referred By Esperanza rodríguez Referred To Contact Diagnoses Shock CARDIOGENIC PULMONARY EDEMA Procedures ER Carlos Melton MD [facility] [place] [address] [facility] Referral ID Status Reason Start Date Expiration Date Visits Re quested Visits Authorized [id number] 1 1 Encounter Details Date Type Department Care Team (Latest Contact Info) Description 08/15/2022 9:15 AM EDT - 08/15/2022 11:59 PM EDT Hospital Encounter [place] [address] Discharge Disposition: Home Social History Tobacco Use [...] kit. 1 each 0 12/14/2014 Insulin [place], Disposable, (BD INSULIN PEN NEEDLE UF MINI) [...] PM EDT Office Visit Cardiology at [address] [address] Milagros Hernandez MD [facility] [place] [address] Scheduled Procedures Name Priority Associated Diagnoses Date/Ti [...] 1960 ? Height: 152 cm ? Account: [id number] Age: 62 yrs ? Weight: 69 kg Gender: Female ?BSA: 1.7 m2 Ordering Physician: VENKAT^M Referring Physician: NIURKA AYALA Performed By: Raissa Bhakta RDCS Reason For Study: Septic shock Exam Location: [facility]. Interpretation Summary -Left ventricle is mildly [...] today's date, LVEF is slightly improved. Procedure Complete-[id number]. Satisfactory quality. There is normal sinus rhythm. [...] Date: 309:38 AMBP: 102/54 mmHg Patient Location: [id number] HR: 99 : 1960 Height: 152 cm Account: [id number] Age: 62 yrs Weight: 69 kg Gender: Female BSA: 1.7 m2 Ordering Physician: VENKAT^Johanny Referring Physician: NIURKA AYALA Performed By: Raissa Bhakta RDCS Reason For Study: Septic shock Exam Location: [facility]. Interpretation Summary -Left ventricle is mildly [...] today's date, LVEF is slightly improved. Procedure Complete-[id number]. Satisfactory quality. There is normal sinus rhythm. [...] documented as of this encounter Care Teams Database Administration Project Manager Relationship Specialty Start Date End Date Ana Gillespie APRN [address] [place] [address] PCP - General Family Medicine 02/03/19 documented as of this encounter
--- OUTSIDE RECORDS SUMMARY | 2024-02-29 19:32 | XMS_ITS | Encounter Summary ---
Author Organization [facility] [place] [address] Care Team Providers Care Pump Press Operator Name Role Phone Ana Gillespie APRN Primary Care Provider [phone] Encounter Details Date Type Department Care Team [...] PM EDT Office Visit Cardiology at [address] [address] Milagros Hernandez MD [facility] [address] Scheduled Procedures Name Priority Associated Diagnoses Date/Ti me EGD, UPPER GI ENDOSCOPY (WRV U 2.09) Peptic stricture of esophagus documented as of this encounter Visit Diagnoses Not on filedocumented in this encounter Care Teams Pump Press Operator Relationship Specialty Start Date End Date Ana Gillespie APRN [address] [place] [address] PCP - General Family Medicine 02/03/19 documented as of this encounter
--- OUTSIDE RECORDS SUMMARY | 2024-02-29 19:32 | XMS_ITS | Encounter Summary ---
Author Organization [facility] Address [facility] [place] [address] Care Team Providers Care Typewriter Ribbon Winder Name Role Phone Ana Gillespie VAUGHN Primary Care Provider [phone] Encounter Details Date Type Department Care Team (Late st Contact Info) Description 08/08/2022 12:15 AM EDT Ancillary Procedure Radiology Library at [facility] [place] [address] Social History Tobacco Use Types Packs/Day Years [...] PM EDT Office Visit Cardiology at [address] [address] Milagros Hernandez MD [facility] [place] [address] Scheduled Procedures Name Priority Associated Diagnoses Date/Ti [...] is for storage only. Ayo Serna MD [facility] FILM LIBRARY ORD ERABLES documented in this encounter Visit Diagnoses Not on filedocumented in this encounter Care Teams Typewriter Ribbon Winder Relationship Specialty Start Date End Date Ana Gillespie APRN [address] [place] [address] PCP - General Family Medicine 02/03/19 documented as of this encounter
--- OUTSIDE RECORDS SUMMARY | 2024-02-29 19:32 | XMS_ITS | Encounter Summary ---
[place] [address] Care Team Providers Care Die Maker Apprentice Name Role Phone Ana Gillespie VAUGHN Primary Care Provider [phone] Reason for Referral * Diagnostic Test (Routine) - Closed Specialty Diagnoses / Procedures Referred By Contac t Referred To Contact Cardiology Diagnoses Sepsis, due to unspecified organism, unspecified whether acute organ dysfunction present Procedures Mobile Sergey Chaparro MD [address] [facility] [place] [address] [place] [address] Referral ID Status Reason Start Date Expiration Date V isits Requested Visits Authorized [id number] Closed Specialty Service Requested 08/14/2022 08/14/2023 1 1 Reason for Visit * Diagnostic Test (Routine) - Closed Specialty Diagnoses / Procedures Referred By Contac t Referred To Contact Cardiology Diagnoses Sepsis, due to unspecified organism, unspecified whether acute organ dysfunction present Procedures Mobile Sergey Chaparro MD [address] [facility] [place] [address] [facility] [place] [address] Referral ID Status Reason Start Date Expiration Date V isits Requested Visits Authorized [id number] Closed Specialty Service Requested 08/14/2022 08/14/2023 1 1 Encounter Details Date Type Department Care Team (Late st Contact Info) Description 08/14/2022 3:35 PM EDT - 08/14/2022 9:29 PM EDT Hospital Encounter Mobile Echocardiography [facility] [place] [address] Sergey Ayala MD [facility] [place] [address] Sepsis, due to unspecified organism, unspecified whether [...] strips. 300 each 3 12/14/2014 Blood-Glucose Meter (EyeLockUCH ULTRA2) KitIndications:Type 2 diabetes mellitus, uncontrolled by Other route. 1 = one blood glucose meter kit. 1 each 0 12/14/2014 Insulin [place], Disposable, (BD INSULIN PEN NEEDLE UF MINI) 31 x 3/16 NeedleIndications:Di abetes mellitus type 2, uncontrolled 1 Device by [facility].(Non-Drug; Combo Route) route 3 times [...] PM EDT Office Visit Cardiology at [address] [address] Milagros Hernandez MD [facility] [place] [address] Scheduled Procedures Name Priority Associated Diagnoses Date/Ti [...] 7:53 AM EDT ? Echocardiogram Report Name: SALOJENNIFER ? Study Date: 08/14/2022 01:47 PMBP: 115/77 mmHg ? Patient Location: CVCC^CV24^A : 1960 ? Height: 152 cm ? Account: [id number] Age: 62 yrs ? Weight: 69 kg Gender: Female ?BSA: 1.7 m2 Ordering Physician: SERGEY AYALA Referring Physician: SERGEY AYALA Performed By: MARGAUX Reason For Study: Sepsis Exam Location: [facility]. Interpretation Summary 1. Left ventricular systolic [...] 4. No pericardial effusion No prior Procedure Complete-[id number]. Suboptimal quality. Left Ventricle Left ventricle is [...] Aneurysmal ?15-16 ?? diffuse Procedure Note Jhonny Breg MD - 08/17/2022 Echocardiogram Report Name: SALO JENNIFER [place] Study Date:08/14/2022 01:47 PMBP: 115/77 mmHg Patient [facility]^CV24^A : 1960 Height: 152 cm Account: [id number] Age: 62 yrs Weight: 69 kg Gender: Female BSA: 1.7 m2 Ordering Physician: SERGEY AYALA Referring Physician: SERGEY AYALA Performed By: MARGAUX Reason For Study: Sepsis Exam Location: [facility]. Interpretation Summary 1. Left ventricular systolic [...] 4. No pericardial effusion No prior Procedure Complete-[id number]. Suboptimal quality. Left Ventricle Left ventricle is [...] present documented in this encounter Care Teams Die Maker Apprentice Relationship Specialty Start Date End Date Ana Gillespie APRN [address] [place] [address] PCP - General Family Medicine 02/03/19 documented as of this encounter
--- OUTSIDE RECORDS SUMMARY | 2024-02-29 19:32 | XMS_ITS | Encounter Summary ---
Author Organization [facility] Address [facility] [place] [address] Care Team Providers Care Textile Machine Maintenance Mechanic Name Role Phone Ana Gillespie VAUGHN Primary Care Provider [phone] Encounter Details Date Type Department Care Team (Late st Contact Info) Description 08/14/2022 External [place] [address] Social History Tobacco Use Types Packs/Day Years [...] PM EDT Office Visit Cardiology at [address] [address] Milagros Hernandez MD [facility] [place] [address] Scheduled Procedures Name Priority Associated Diagnoses Date/Ti [...] documented as of this encounter Care Teams Textile Machine Maintenance Mechanic Relationship Specialty Start Date End Date Ana Gillespie APRN [address] [place] [address] PCP - General Family Medicine 02/03/19 documented as of this encounter
--- OUTSIDE RECORDS SUMMARY | 2024-02-29 19:32 | XMS_ITS | Encounter Summary ---
Author Organization [facility] [place] [address] Care Team Providers Care Shipping Receiving Manager Name Role Phone Ana Gillespie APRN Primary Care Provider [phone] Encounter Details Date Type Department Care Team (Late st Contact Info) Description 05/25/2022 Telephone Gastroenterology at [facility] [place] [phone] Jaymie Bass Social History Tobacco Use Types [...] - 05/25/2022 12:22 PM EST Jennifer Irving [id number] EGD with Anesthesia within 1 week per [...] No 18. You must have a responsible libertarian who will drive you to your procedure, stay on campus for the entire duration of your procedure, and drive you home from your procedure. Who will likely be your driver/sales workers for the procedure? yes *Please Verify the [...] PM EDT Office Visit Cardiology at [address] [address] Milagros Hernandez MD [facility] [place] [address] Scheduled Procedures Name Priority Associated Diagnoses Date/Ti me EGD, UPPER GI ENDOSCOPY (WRV U 2.09) Peptic stricture of esophagus documented as of this encounter Visit Diagnoses Not on filedocumented in this encounter Care Teams Shipping Receiving Manager Relationship Specialty Start Date End Date Ana Gillespie APRN [address] [place] [address] PCP - General Family Medicine 02/03/19 documented as of this encounter
--- OUTSIDE RECORDS SUMMARY | 2024-02-29 19:32 | XMS_ITS | Encounter Summary ---
Author Organization [facility] Address [facility] [place] [address] Care Team Providers Care Annealing Torch Operator Name Role Phone Ana Gillespie VAUGHN Primary Care Provider [phone] Encounter Details Date Type Department Care Team (Late st Contact Info) Description 08/08/2022 12:10 AM EDT Ancillary Procedure Radiology Library at [facility] [place] [address] Social History Tobacco Use Types Packs/Day Years [...] PM EDT Office Visit Cardiology at [address] [address] Milagros Hernandez MD [facility] [place] [address] Scheduled Procedures Name Priority Associated Diagnoses Date/Ti [...] is for storage only. Ayo Serna MD [facility] FILM LIBRARY ORD ERABLES documented in this encounter Visit Diagnoses Not on filedocumented in this encounter Care Teams Annealing Torch Operator Relationship Specialty Start Date End Date Ana Gillespie APRN [address] [place] [address] PCP - General Family Medicine 02/03/19 documented as of this encounter
--- OUTSIDE RECORDS SUMMARY | 2024-02-29 19:32 | XMS_ITS | Encounter Summary ---
Author Organization [facility] Address [facility] [place] [address] Care Team Providers Care Time Study Technologist Name Role Phone Ana Gillespie APRN Primary Care Provider [phone] Encounter Details Date Type Department Care Team (Late st Contact Info) Description 06/05/2022 [place] [phone] Crissy Causey Social History Tobacco Use Types [...] PM EDT Office Visit Cardiology at [address] [phone] Milagros Hernandez MD [facility] [place] [address] Scheduled Procedures Name Priority Associated Diagnoses Date/Ti me EGD, UPPER GI ENDOSCOPY (WRV U 2.09) Peptic stricture of esophagus documented as of this encounter Visit Diagnoses Not on filedocumented in this encounter Care Teams Time Study Technologist Relationship Specialty Start Date End Date Ana Gillespie APRN [address] [place] [address] PCP - General Family Medicine 02/03/19 documented as of this encounter
--- OUTSIDE RECORDS SUMMARY | 2024-02-29 19:32 | XMS_ITS | Encounter Summary ---
Author Organization [facility] Address [facility] [place] [address] Care Team Providers Care Managing Broker Name Role Phone Jose Miguel Ana RETORT FIREMAN Primary Care Provider [phone] Encounter Details Date Type Department Care Team (Late st Contact Info) Description 08/10/2022 Ancillary Procedure Radiology Library at [facility] [place] [address] Ana Gilelspie APRN [address] [place] [address] Social History Tobacco Use Types [...] PM EDT Office Visit Cardiology at [address] [place] [address] Milagros Hernandez MD [facility] [place] [address] Scheduled Procedures Name Priority Associated Diagnoses Date/Ti [...] FILM LIBRARY ORD ERABLES Performing Organization Address City/State/[facility] Co de Phone Number [place], [place] documented in this encounter Visit Diagnoses Not on filedocumented in this encounter Care Teams Managing Broker Relationship Specialty Start Date End Date Ana Gillespie APRN [address] [place] [address] PCP - General Family Medicine 02/03/19 documented as of this encounter
--- OUTSIDE RECORDS SUMMARY | 2024-02-29 19:32 | XMS_ITS | Encounter Summary ---
Author Organization [facility] Address [facility] [place] [address] Care Team Providers Care Kettle Chipper Name Role Phone Ana Gillespie VAUGHN Primary Care Provider [phone] Encounter Details Date Type Department Care Team (Late st Contact Info) Description 08/13/2022 Ancillary Procedure Radiology Library at [facility] [place] [place] [address] Social History Tobacco Use Types Packs/Day Years [...] PM EDT Office Visit Cardiology at [address] [address] Milagros Hernandez MD [facility] [place] [address] Scheduled Procedures Name Priority Associated Diagnoses Date/Ti [...] for storage only. Ayo Serna MD [facility] FILM LIBRARY ORD ERABLES documented in this encounter Visit Diagnoses Not on filedocumented in this encounter Care Teams Kettle Chipper Relationship Specialty Start Date End Date Ana Gillespie APRN [address] [place] [address] PCP - General Family Medicine 02/03/19 documented as of this encounter
--- OUTSIDE RECORDS SUMMARY | 2024-02-29 19:32 | XMS_ITS | Encounter Summary ---
Author Organization [facility] Address [facility] [place] [address] Care Team Providers Care Venipuncturist Name Role Phone Ana Gillespie VAUGHN Primary Care Provider [phone] Encounter Details Date Type Department Care Team (Late st Contact Info) Description 07/03/2022 8:30 AM EST - 07/03/2022 9:00 AM EST Surgery Gastroenterology at [facility] [place] [address] David Dejesus MD [facility] [place] [address] EGD WITH BIOPSY (WRVU 2.39) Social History [...] Care Everywhere. * EGD (Upper Endoscopy): Post-op (Turkish) documented in this encounter Medications at Time [...] meter kit. 1 each 0 12/14/2014 Insulin [place], Disposable, (BD INSULIN PEN NEEDLE UF MINI) 31 x 07/23 NeedleIndications:Di abetes mellitus type 2, uncontrolled 1 Device by [facility] [...] for dosing. 15 mL 11 ??? Insulin [place], Disposable, (BD INSULIN PEN NEEDLE UF MINI) [...] PM EDT Office Visit Cardiology at [address] [address] Milagros Hernandez MD [facility] [place] [address] Scheduled Procedures Name Priority Associated Diagnoses Date/Ti me EGD, UPPER GI ENDOSCOPY (WRV U 2.09) Peptic stricture of esophagus documented as of this encounter Procedures Procedure Name Priority Date/Time Associated Diagnosis Comments SURGICAL PATHOLOGY REPORT Routine 07/03/2022 9:02 AM EST SPECIMEN TO PATHOLOGY Routine 07/03/2022 9:02 AM EST SPECIMEN TO PATHOLOGY Routine 07/03/2022 9:02 AM EST Upper Gi Endoscopy, Biopsy ([id number]) 07/03/2022 8:39 AM EST Farrell's esophagus without dysplasia POCT GLUCOSE Routine 07/03/2022 7:37 AM EST UPPER GI ENDOSCOPY Routine 07/03/2022 7: 26 AM EST documented in this encounter Results * Surgical Pathology Report (07/03/2022 9:02 AM EST) Final Diagnosis [id number] ? Location: 4T; EA11; A The signing [...] Note). Note: Immunostains for p53, CD31 and [id number] were evaluated for final diagnosis. Electronically signed by: ?Chinmay Nguyen MD Verified: ??07/08/2022 16:29 ??Pathologist Performed at: ??-[facility] [place], [place] [address] Occupational Therapy Aides Teacher: Vishal Gilliam MD, FCAP, ??CLIA Certificate: [id number] ADDITIONAL STUDIES Immunohistochemistry Studies: Formalin-fixed, paraffin-embedded tissue [...] note ? CD31 ? see note ? [id number] ? see note SPECIMEN(S) SUBMITTED A - [...] 4:29 PM EST [facility] GI Biopsy 07/03/2022 9:02 AM EST 07/03/2022 9:02 AM EST GI Biopsy 07/03/2022 9:02 AM EST 07/03/2022 9:02 AM EST David Dejesus MD PATHOLOGY/CYTOLOGY ORDERABLES Performing Organization Address [facility]/State/ZIP Co de Phone Number [facility] [place] [address] [facility] [place] [address] * Specimen to Pathology (07/03/2022 9:02 AM EST) AP Specimen 07/03/2022 9:02 AM EST 07/03/2022 9:02 AM EST Narrative [facility] - 07/03/2022 9:02 AM EST Specimen requisition ordered. ??Separate Pathology report to follow David Dejesus MD PATHOLOGY/CYTOLOGY ORDERABLES [facility] [place] [address] * Specimen to Pathology (07/03/2022 9:02 AM EST) AP Specimen 07/03/2022 9:02 AM EST 07/03/2022 9:02 AM EST Narrative [facility] - 07/03/2022 9:02 AM EST Specimen requisition ordered. ??Separate Pathology report to follow David Dejesus MD PATHOLOGY/CYTOLOGY ORDERABLES Performing Organization Address City/[facility]/ZIP [place] [address] * POCT Glucose (07/03/2022 7:37 AM EST) Glucose, POC 139 65 - 199 mg/dL [facility] Comment: Supplemental ranges: <140 mg/dL before meals <180 mg/dL all other times of the day Blood 07/03/2022 7:37 AM EST 07/03/2022 7:37 AM EST David Dejesus MD POINT OF CARE TEST ORDERABLES Performing Organization Address City/[facility] [place] [address] * UPPER GI ENDOSCOPY (07/03/2022 7:26 AM EST) UPPER GI ENDOSCOPY [facility] Endoscopy Procedure Date: 07/03/2022 7:26 AM ? Patient Name: Jennifer Irving ? Date of : 1960 ? Age: 62 ? Order #: [id number] ? Instrument Name: [id number] ? Procedure: ? Upper GI endoscopy Indications: [...] CRNA) documented in this encounter Care Teams Venipuncturist Relationship Specialty Start Date End Date Ana Gillespie APRN [address] [place] [address] PCP - General Family Medicine 02/03/19 documented as of this encounter
--- OUTSIDE RECORDS SUMMARY | 2024-02-29 19:32 | XMS_ITS | Encounter Summary ---
Author Organization [facility] Address [facility] [place] [address] Care Team Providers Care Arboriculture Instructor Name Role Phone Ana Gillespie APRN Primary Care Provider [phone] Encounter Details Date Type Department Care Team (Late st Contact Info) Description 06/23/2022 [place] [address] Ilene Sharma RN Social History [...] PM EDT Office Visit Cardiology at [address] [phone] Milagros Hernandez MD [facility] [place] [address] Scheduled Procedures Name Priority Associated Diagnoses Date/Ti [...] documented as of this encounter Care Teams Arboriculture Instructor Relationship Specialty Start Date End Date Ana Gillespie APRN [address] [place] [address] PCP - General Family Medicine 02/03/19 documented as of this encounter
--- OUTSIDE RECORDS SUMMARY | 2024-02-29 19:32 | XMS_ITS | Encounter Summary ---
Author Organization [facility] Address [facility] [place] [address] Care Team Providers Care Sole Leather Cutting Machine Operator Name Role Phone Jose Miguel Ana CHEMICAL PROCESSOR Primary Care Provider [phone] Encounter Details Date Type Department Care Team (Late st Contact Info) Description 08/09/2022 Ancillary Procedure Radiology Library at [facility] [place] [address] Ana Gillespie APRN [address] [place] [address] Social History Tobacco Use Types [...] PM EDT Office Visit Cardiology at [address] [place] [address] Milagros Hernandez MD [facility] [place] [address] Scheduled Procedures Name Priority Associated Diagnoses Date/Ti me EGD, UPPER GI ENDOSCOPY (WRV U 2.09) Peptic stricture of esophagus documented as of this encounter Procedures Procedure Name Priority Date/Time Associated Diagnosis Comments FILM LIBRARY FLUORO OR D-DSZ-HBEBAFD ONLY Routine 08/09/2022 12:00 AM EDT documented in this encounter Results * Film Library - Fluoro or C Arm Storage Only (08/09/2022 12:00 AM EDT) Narrative [facility] - 08/14/2022 6:05 PM EDT This exam is auto-finalizing. It's purpose is for storage only. Ana Gillespie APRN IMG FILM LIBRARY ORD ERABLES Performing Organization Address City/State/[facility] Co de Phone Number [place], [place] documented in this encounter Visit Diagnoses Not on filedocumented in this encounter Care Teams Sole Leather Cutting Machine Operator Relationship Specialty Start Date End Date Ana Gillespie APRN [address] [place] [address] PCP - General Family Medicine 02/03/19 documented as of this encounter
--- OUTSIDE RECORDS SUMMARY | 2024-02-29 19:32 | XMS_ITS | Encounter Summary ---
Author Organization [facility] Address [facility] [place] [address] Care Team Providers Care Senior Research Analyst Name Role Phone Ana Gillespie VAUGHN Primary Care Provider [phone] Encounter Details Date Type Department Care Team (Latest Contact Info) Description 07/03/2022 7:08 AM EST - 07/03/2022 10:05 AM EST Hospital Encounter Gastroenterology at [facility] [place] [address] David Dejesus MD [facility] [place] [address] Discharge Disposition: Home Social History Tobacco Use [...] Care Everywhere. * EGD (Upper Endoscopy): Post-op (Iraqi) documented in this encounter Medications at Time [...] meter kit. 1 each 0 12/14/2014 Insulin [place], Disposable, (BD INSULIN PEN NEEDLE UF MINI) [...] for dosing. 15 mL 11 ??? Insulin [place], Disposable, (BD INSULIN PEN NEEDLE UF MINI) [...] PM EDT Office Visit Cardiology at [address] [address] Milagros Hernandez MD [facility] [place] [address] Scheduled Procedures Name Priority Associated Diagnoses Date/Ti pr EGD, UPPER GI ENDOSCOPY (WRV U 2.09) Peptic stricture of esophagus documented as of this encounter Procedures Procedure Name Priority Date/Time Associated Diagnosis Comments SURGICAL PATHOLOGY REPORT Routine 07/03/2022 9:02 AM EST SPECIMEN TO PATHOLOGY Routine 07/03/2022 9:02 AM EST SPECIMEN TO PATHOLOGY Routine 07/03/2022 9:02 AM EST Upper Gi Endoscopy, Biopsy ([id number]) 07/03/2022 8:39 AM EST Farrell's esophagus without dysplasia POCT GLUCOSE Routine 07/03/2022 7:37 AM EST UPPER GI ENDOSCOPY Routine 07/03/2022 7: 26 AM EST documented in this encounter Results * Surgical Pathology Report (07/03/2022 9:02 AM EST) Final Diagnosis [id number] ? Location: 4T; EA11; A The signing [...] Note). Note: Immunostains for p53, CD31 and [id number] were evaluated for final diagnosis. Electronically signed by: ?Chinmay Nguyen MD Verified: ??07/08/2022 16:29 ??Pathologist Performed at: ??-[facility] [place], [place] [address] Jackhammer Splitter Operator: Vishal Gilliam MD, FCAP, ??CLIA Certificate: [id number] ADDITIONAL STUDIES Immunohistochemistry Studies: Formalin-fixed, paraffin-embedded tissue [...] note ? CD31 ? see note ? [id number] ? see note SPECIMEN(S) SUBMITTED A - [...] SPECIMEN PROCESSING ??pps 07/08/2022 4:29 PM EST [facility] GI Biopsy 07/03/2022 9:02 AM EST 07/03/2022 9:02 AM EST GI Biopsy 07/03/2022 9:02 AM EST 07/03/2022 9:02 AM EST David Dejesus MD PATHOLOGY/CYTOLOGY ORDERABLES Performing Organization Address [facility]/State/[facility] Co de Phone Number [facility] [place] [address] [facility] [place] [address] * Specimen to Pathology (07/03/2022 9:02 AM EST) AP Specimen 07/03/2022 9:02 AM EST 07/03/2022 9:02 AM EST Narrative [facility] - 07/03/2022 9:02 AM EST Specimen requisition ordered. ??Separate Pathology report to follow David Dejesus MD PATHOLOGY/CYTOLOGY ORDERABLES Performing Organization Address City/[facility]/ZIP Co de Phone Number [facility] [place] [address] * Specimen to Pathology (07/03/2022 9:02 AM EST) AP Specimen 07/03/2022 9:02 AM EST 07/03/2022 9:02 AM EST Narrative [facility] - 07/03/2022 9:02 AM EST Specimen requisition ordered. ??Separate Pathology report to follow David Dejesus MD PATHOLOGY/CYTOLOGY ORDERABLES Performing Organization Address City/[facility]/ZIP Co de Phone Number [facility] [place] [address] * POCT Glucose (07/03/2022 7:37 AM EST) Glucose, POC 139 65 - 199 mg/dL [facility] Comment: Supplemental ranges: <140 mg/dL before meals <180 mg/dL all other times of the day Blood 07/03/2022 7:37 AM EST 07/03/2022 7:37 AM EST David Dejesus MD POINT OF CARE TEST ORDERABLES Performing Organization Address [facility] [place] [address] * UPPER GI ENDOSCOPY (07/03/2022 7:26 AM EST) UPPER GI ENDOSCOPY [facility] Endoscopy Procedure Date: 07/03/2022 7:26 AM ? Patient Name: Jennifer Irving ? Date of : 1960 ? Age: 62 ? Order #: [id number] ? Instrument Name: [id number] ? Procedure: ? Upper GI endoscopy Indications: [...] PROVATION 07/03/2022 7:26 AM EST Ana Gillespie HOT PLATE [employer]ER GENERAL SURGICAL ORD ERABLES PROVATION documented in [...] CRNA) documented in this encounter Care Teams Senior Research Analyst Relationship Specialty Start Date End Date Ana Gillespie APRN [address] [place] [address] PCP - General Family Medicine 02/03/19 documented as of this encounter
--- OUTSIDE RECORDS SUMMARY | 2024-02-29 19:32 | XMS_ITS | Encounter Summary ---
Author Organization [facility] Address [facility] [place] [address] Care Team Providers Care Hospitalist Program Director Name Role Phone Ana Gillespie VAUGHN Primary Care Provider [phone] Encounter Details Date Type Department Care Team (Latest Contact Info) Description 03/31/2022 8:43 AM EST - 03/31/2022 11:10 AM EST Hospital Encounter Gastroenterology at [facility] [place] [address] David Dejesus MD [facility] [place] [address] Discharge Disposition: Home Social History Tobacco Use [...] the day after the procedure, use an udtg-sdd-niyhbnl spray to numb your throat. Sucking on [...] occurs, please contact your Doctor. Please call [phone] before 8pm Mon-Fri with problems, questions or concerns. If you call after 8pm or on weekends, call the Hospital at [phone] and ask to speak to the Instructor Bus Trolley [employer] Taxi disease intervention specialist and the end touching machine operator will contact that person for you. When should you call for help? Call [phone] anytime you think you may need emergency [...] Where can you learn more? [facility] View your After Visit Summary and more online at [email or web address] If you would like to provide feedback about your hospital experience, please call the Office of Patient and Family Relations at . If you have received this After Visit Summary in error, please immediately return it in person to the department, or notify the [facility] Privacy Office by calling toll free at between the hours of 8AM and 5PM to arrange for our retrieval of the documents at no cost to you. Content Version: 12.2 ?? [id number] [employer] Care instructions adapted under license by [facility]. If you have questions about a medical condition or this instruction, always ask your healthcare professional. [employer] disclaims any warranty or liability for your [...] mellitus type 2, uncontrolled 1 Device by [facility].(Non-Drug; Combo Route) route 3 times daily as [...] PM EDT Office Visit Cardiology at [address] [address] Milagros Hernandez MD [facility] [place] [address] Scheduled Procedures Name Priority Associated Diagnoses Date/Ti [...] 10:21 AM EST Endoscopic Us Exam, Esoph ([id number]) 03/31/2022 9:59 AM EST Schedule EGD in two years Upper Gi Endoscopy, Biopsy ([id number]) 03/31/2022 9:59 AM EST Schedule EGD in two years UPPER GI ENDOSCOPY Routine 03/31/2022 9: 56 AM EST POCT GLUCOSE Routine 03/31/2022 9:18 AM EST documented in this encounter Results * Specimen to Pathology (03/31/2022 10:36 AM EST) AP Specimen 03/31/2022 10:3 6 AM EST 03/31/2022 10:36 AM EST Narrative [facility] - 03/31/2022 10:36 AM EST Specimen requisition ordered. ??Separate Pathology report to follow David Dejesus MD PATHOLOGY/CYTOLOGY ORDERABLES [facility] [place] [address] * Specimen to Pathology (03/31/2022 10:36 AM EST) AP Specimen 03/31/2022 10:3 6 AM EST 03/31/2022 10:36 AM EST Narrative [facility] - 03/31/2022 10:36 AM EST Specimen requisition ordered. ??Separate Pathology report to follow David Dejesus MD PATHOLOGY/CYTOLOGY ORDERABLES Performing Organization Address City/[facility]/[place] [address] * Specimen to Pathology (03/31/2022 10:36 AM EST) AP Specimen 03/31/2022 10:3 6 AM EST 03/31/2022 10:36 AM EST Narrative [facility] - 03/31/2022 10:36 AM EST Specimen requisition ordered. ??Separate Pathology report to follow David Dejesus MD PATHOLOGY/CYTOLOGY ORDERABLES Performing Organization Address [facility] [place] [address] * Specimen to Pathology (03/31/2022 10:36 AM EST) AP Specimen 03/31/2022 10:3 6 AM EST 03/31/2022 10:36 AM EST Narrative [facility] - 03/31/2022 10:36 AM EST Specimen requisition ordered. ??Separate Pathology report to follow David Dejesus MD PATHOLOGY/CYTOLOGY ORDERABLES Performing Organization Address [facility] [place] [address] * Specimen to Pathology (03/31/2022 10:36 AM EST) AP Specimen 03/31/2022 10:3 6 AM EST 03/31/2022 10:36 AM EST Narrative [facility] - 03/31/2022 10:36 AM EST Specimen requisition ordered. ??Separate Pathology report to follow David Dejesus MD PATHOLOGY/CYTOLOGY ORDERABLES Performing Organization Address [facility] Co de Phone Number [facility] [place] [address] * Specimen to Pathology (03/31/2022 10:36 AM EST) AP Specimen 03/31/2022 10:3 6 AM EST 03/31/2022 10:36 AM EST Narrative [facility] - 03/31/2022 10:36 AM EST Specimen requisition ordered. ??Separate Pathology report to follow David Dejesus MD PATHOLOGY/CYTOLOGY ORDERABLES Performing Organization Address [facility] [place] [address] * Specimen to Pathology (03/31/2022 10:36 AM EST) AP Specimen 03/31/2022 10:3 6 AM EST 03/31/2022 10:36 AM EST Narrative [facility] - 03/31/2022 10:36 AM EST Specimen requisition ordered. ??Separate Pathology report to follow David Dejesus MD PATHOLOGY/CYTOLOGY ORDERABLES Performing Organization Address [facility] [place] [address] * Surgical Pathology Report (03/31/2022 10:21 AM EST) Pathologist [facility] Final Diagnosis [id number] ? Location: 4; 08; A The signing [...] Verified: ??04/09/2022 9:14 ?? Pathologist Performed at: ??-[facility] Dept. of Pathology, [place] [address] Mental Health Aide: Vishal Gilliam MD, FCAP, ??CLIA Certificate: [id number] SPECIMEN(S) SUBMITTED A - Esophagus at 30 [...] labeled G1. ??sns 04/09/2022 9:14 AM EST [facility] GI Biopsy 03/31/2022 10:2 1 AM [...] AM EST David Dejesus MD PATHOLOGY/CYTOLOGY ORDERABLES [facility] [place] [address] * UPPER GI ENDOSCOPY (03/31/2022 9:56 AM EST) UPPER GI ENDOSCOPY [facility] Endoscopy Procedure Date: 03/31/2022 9:56 AM ? Patient Name: Jennifer Irving ? Date of : 1960 ? Age: 61 ? Order #: [id number] ? Instrument Name: [id number]- [id number] ? Procedure: ? Upper GI endoscopy Indications: [...] Glucose, POC 180 65 - 199 mg/dL [facility] Comment: Supplemental ranges: <140 mg/dL before meals <180 mg/dL all other times of the day Blood 03/31/2022 9:18 AM EST 03/31/2022 9:18 AM EST David Dejesus MD POINT OF [place] [address] documented in this encounter Visit Diagnoses Not [...] CRNA) documented in this encounter Care Teams Hospitalist Program Director Relationship Specialty Start Date End Date Ana Gillespie APRN [address] [place] [address] PCP - General Family Medicine 02/03/19 documented as of this encounter
--- OUTSIDE RECORDS SUMMARY | 2024-02-29 19:32 | XMS_ITS | Encounter Summary ---
Author Organization [facility] [place] [address] Care Team Providers Care Glazing Machine Operator Name Role Phone Ana Gillespie APRN Primary Care Provider [phone] Encounter Details Date Type Department Care Team (Late st Contact Info) Description 07/09/2022 Orders [place] [phone] David Dejesus MD [facility] [address] Farrell's esophagus without dysplasia Social History Tobacco [...] PM EDT Office Visit Cardiology at [address] [phone] Milagros Hernandez MD [facility] [place] [address] Scheduled Orders Name Type Priority Associated Diagnoses [...] esophagus documented in this encounter Care Teams Glazing Machine Operator Relationship Specialty Start Date End Date Ana Gillespie APRN [address] [place] [address] PCP - General Family Medicine 02/03/19 documented as of this encounter
--- OUTSIDE RECORDS SUMMARY | 2024-02-29 19:32 | XMS_ITS | Encounter Summary ---
Author Organization [facility] Address [facility] [place] [address] Care Team Providers Care Center Machine Set Up Operator Name Role Phone Jose Miguel Ana DROP CREW LABORER Primary Care Provider [phone] Encounter Details Date Type Department Care Team (Late st Contact Info) Description 08/08/2022 Ancillary Procedure Radiology Library at [facility] [place] [address] Ana Gillespie APRN [address] [place] [address] Social History Tobacco Use Types [...] PM EDT Office Visit Cardiology at [address] [place] [address] Milagros Hernandez MD [facility] [place] [address] Scheduled Procedures Name Priority Associated Diagnoses Date/Ti [...] FILM LIBRARY ORD ERABLES Performing Organization Address City/State/[facility] Co de Phone Number [place], [place] documented in this encounter Visit Diagnoses Not on filedocumented in this encounter Care Teams Center Machine Set Up Operator Relationship Specialty Start Date End Date Ana Gillespie APRN [address] [place] [address] PCP - General Family Medicine 02/03/19 documented as of this encounter
--- OUTSIDE RECORDS SUMMARY | 2024-02-29 19:32 | XMS_ITS | Encounter Summary ---
Author Organization [facility] [place] [address] Care Team Providers Care Granite Chip Terrazzo Finisher Name Role Phone Ana Gillespie APRN Primary Care Provider [phone] Encounter Details Date Type Department Care Team [...] PM EDT Office Visit Cardiology at [address] [address] Milagros Hernandez MD [facility] [address] Scheduled Procedures Name Priority Associated Diagnoses Date/Ti me EGD, UPPER GI ENDOSCOPY (WRV U 2.09) Peptic stricture of esophagus documented as of this encounter Visit Diagnoses Not on filedocumented in this encounter Care Teams Granite Chip Terrazzo Finisher Relationship Specialty Start Date End Date Ana Gillespie APRN [address] [place] [address] PCP - General Family Medicine 02/03/19 documented as of this encounter
--- OUTSIDE RECORDS SUMMARY | 2024-02-29 19:32 | XMS_ITS | Encounter Summary ---
Author Organization [facility] Address [facility] [place] [address] Care Team Providers Care Industrial Security Analyst Name Role Phone Ana Gillespie VAUGHN Primary Care Provider [phone] Encounter Details Date Type Department Care Team (Late st Contact Info) Description 03/31/2022 10:15 AM EST - 03/31/2022 10:45 AM EST Surgery Gastroenterology at [facility] [place] [address] David Dejesus MD [facility] [place] [address] EGD WITH BIOPSY (WRVU 2.39) Social History [...] the day after the procedure, use an ooyh-grl-qldtyxf spray to numb your throat. Sucking on [...] occurs, please contact your Doctor. Please call [phone] before 8pm Mon-Fri with problems, questions or concerns. If you call after 8pm or on weekends, call the Hospital at [phone] and ask to speak to the Labor Custodian instrument/control technician and the coring machine operator will contact that person for you. When should you call for help? Call [phone] anytime you think you may need emergency [...] any problems. Where can you learn more? [facility] View your After Visit Summary and more online at [email or web address] If you would like to provide feedback about your hospital experience, please call the Office of Patient and Family Relations at . If you have received this After Visit Summary in error, please immediately return it in person to the department, or notify the [facility] Privacy Office by calling toll free at between the hours of 8AM and 5PM to arrange for our retrieval of the documents at no cost to you. Content Version: 12.2 ?? [id number] [employer]. Care instructions adapted under license by [facility]. If you have questions about a medical condition or this instruction, always ask your healthcare professional. [employer] disclaims any warranty or liability for your [...] meter kit. 1 each 0 12/14/2014 Insulin [place], Disposable, (BD INSULIN PEN NEEDLE UF MINI) 31 x 3/16 NeedleIndications:Di abetes mellitus type 2, uncontrolled [address] [facility] [...] esophagus surveillance History of Present Illness: Jennifer Ivring is a 61 y.o. F PMH non- [...] PM EDT Office Visit Cardiology at [address] [address] Milagros Hernandez MD [facility] [place] [address] Scheduled Procedures Name Priority Associated Diagnoses Date/Ti [...] 10:21 AM EST Endoscopic Us Exam, Esoph ([id number]) 03/31/2022 9:59 AM EST Schedule EGD in two years Upper Gi Endoscopy, Biopsy ([id number]) 03/31/2022 9:59 AM EST Schedule EGD in two years UPPER GI ENDOSCOPY Routine 03/31/2022 9: 56 AM EST POCT GLUCOSE Routine 03/31/2022 9:18 AM EST documented in this encounter Results * Specimen to Pathology (03/31/2022 10:36 AM EST) AP Specimen 03/31/2022 10:3 6 AM EST 03/31/2022 10:36 AM EST Narrative [facility] - 03/31/2022 10:36 AM EST Specimen requisition ordered. ??Separate Pathology report to follow David Dejesus MD PATHOLOGY/CYTOLOGY ORDERABLES [facility] [place] [place] [address] * Specimen to Pathology (03/31/2022 10:36 AM EST) AP Specimen 03/31/2022 10:3 6 AM EST 03/31/2022 10:36 AM EST Narrative [facility] - 03/31/2022 10:36 AM EST Specimen requisition ordered. ??Separate Pathology report to follow David Dejesus MD PATHOLOGY/CYTOLOGY ORDERABLES Performing Organization Address City/[facility] Co de Phone Number [facility] [place] [address] * Specimen to Pathology (03/31/2022 10:36 AM EST) AP Specimen 03/31/2022 10:3 6 AM EST 03/31/2022 10:36 AM EST Narrative [facility] - 03/31/2022 10:36 AM EST Specimen requisition ordered. ??Separate Pathology report to follow David Dejesus MD PATHOLOGY/CYTOLOGY ORDERABLES Performing Organization Address [facility] Co de Phone Number [facility] [place] [address] * Specimen to Pathology (03/31/2022 10:36 AM EST) AP Specimen 03/31/2022 10:3 6 AM EST 03/31/2022 10:36 AM EST Narrative [facility] - 03/31/2022 10:36 AM EST Specimen requisition ordered. ??Separate Pathology report to follow David Dejesus MD PATHOLOGY/CYTOLOGY ORDERABLES Performing Organization Address [facility] Co de Phone Number [facility] [place] [address] * Specimen to Pathology (03/31/2022 10:36 AM EST) AP Specimen 03/31/2022 10:3 6 AM EST 03/31/2022 10:36 AM EST Narrative [facility] - 03/31/2022 10:36 AM EST Specimen requisition ordered. ??Separate Pathology report to follow David Dejesus MD PATHOLOGY/CYTOLOGY ORDERABLES Performing Organization Address City/[facility] Co de Phone Number [facility] [place] [place] [address] * Specimen to Pathology (03/31/2022 10:36 AM EST) AP Specimen 03/31/2022 10:3 6 AM EST 03/31/2022 10:36 AM EST Narrative [facility] - 03/31/2022 10:36 AM EST Specimen requisition ordered. ??Separate Pathology report to follow David Dejesus MD PATHOLOGY/CYTOLOGY ORDERABLES Performing Organization Address [facility] [place] [address] * Specimen to Pathology (03/31/2022 10:36 AM EST) AP Specimen 03/31/2022 10:3 6 AM EST 03/31/2022 10:36 AM EST Narrative [facility] - 03/31/2022 10:36 AM EST Specimen requisition ordered. ??Separate Pathology report to follow David Dejesus MD PATHOLOGY/CYTOLOGY ORDERABLES Performing Organization Address [facility] [place] [address] * Surgical Pathology Report (03/31/2022 10:21 AM EST) Pathologist [facility] Final Diagnosis [id number] ? Location: 4; 08; A The signing [...] Verified: ??04/09/2022 9:14 ?? Pathologist Performed at: ??-[facility] Dept. of Pathology, [place] [address] Expander Machine Operator: Vishal Gilliam MD, FCAP, ??CLIA Certificate: [id number] SPECIMEN(S) SUBMITTED A - Esophagus at 30 [...] labeled G1. ??sns 04/09/2022 9:14 AM EST [facility] GI Biopsy 03/31/2022 10:2 1 [...] AM EST David Dejesus MD PATHOLOGY/CYTOLOGY ORDERABLES [facility] [place] [address] * UPPER GI ENDOSCOPY (03/31/2022 9:56 AM EST) UPPER GI ENDOSCOPY [facility] Endoscopy Procedure Date: 03/31/2022 9:56 AM ? Patient Name: Jennifer Irving ? Date of : 1960 ? Age: 61 ? Order #: [id number] ? Instrument Name: [id number] ? Procedure: ? Upper GI endoscopy Indications: ? Follow-up of Farrell's esophagus Providers: ? David Dejesus MD, Trell Key. ? Ivone, Eligio Sadler RN, Kenna ? Humble Referring MD: ?Ana Keith: ? Monitored Anesthesia [...] Glucose, POC 180 65 - 199 mg/dL [facility] Comment: Supplemental ranges: <140 mg/dL before meals <180 mg/dL all other times of the day Blood 03/31/2022 9:18 AM EST 03/31/2022 9:18 AM EST David Dejesus MD POINT OF CARE TEST ORDERABLES [facility] [place] [address] documented in this encounter Visit Diagnoses Not [...] Switch to gravity)0959 (Restarted - Provider: Susy Jáurez CRNA)1010 (Anesthesia Volume Adjustment - Provider: Susy Juárez CRNA)1021 (Anesthesia Volume Adjustment - Provider: Susy Juárez CRNA)1025 (Anesthesia Volume Adjustment - Provider: Susy Juárez CRNA)1034 (Anesthesia Volume Adjustment - Provider: Susy Juárez CRNA) documented in this encounter Care Teams Industrial Security Analyst Relationship Specialty Start Date End Date Ana Gillespie APRN [address] [place] [address] PCP - General Family Medicine 02/03/19 documented as of this encounter
--- OUTSIDE RECORDS SUMMARY | 2024-02-29 19:32 | XMS_ITS | Encounter Summary ---
[place] [address] Care Team Providers Care Interactive Developer Name Role Phone Ana Gillespie VAUGHN Primary Care Provider [phone] Reason for Visit * Auth/Cert (Routine) Specialty Diagnoses / Procedures Referred By Esperazna t Referred To Contact Diagnoses Shock CARDIOGENIC PULMONARY EDEMA Procedures ER CLAUDIOI Carlos Terry MD [facility] [place] [address] [facility] Referral ID Status Reason Start Date Expiration Date Visits Re quested Visits Authorized [id number] 1 1 Encounter Details Date Type Department Care Team (Late st Contact Info) Description 09/09/2022 11:32 PM EDT Anesthesia Event [place] [address] Chon Moctezuma MD [facility] [place] [address] Darin Chaves MD [facility] [place] [address] Anesthesia Record Procedure Summary Procedure Name Responsible [...] side of arm), right; pressure injectable catheter ([id number]); 5 Fr; 0 cm; 33 cm; 33 cm; placement verified by x-ray; superior vena cava; CCampRNVAS; distraction, intradermal injection; confirmed 33cm. of catheter removed; no longer indicated, removed per policy/procedure, site care per policy/procedure, catheter/device intact; 09/16/22; 0933 08/19/22 1655 by Johanne Jacobo RN 09/16/22 0933 by Simba Elizondo RN External Catheter 08/23/22; 1100; 09/13/22; 0800 08/23/22 1100 by Libby Zlueta RN 09/13/22 0800 by Elsie Nunez RN [...] Procedure Summary Date: 09/09/22 Room / Location: [place] [address] [facility] MAIN OR Anesthesia Start: 2331 Anesthesia Stop: Procedure: EGD, UPPER GI ENDOSCOPY (WRVU 2.09) Diagnosis: (failed MBS with aspitration risk) Surgeons: Ayo Russ MD Responsible Provider: Chon Moctezuma MD Anesthesia Type: general ASA Status: 3 All Anesthesia Providers: Anesthesiologist: Chon Moctezuma MD [employer]: Darin Chaves MD Vitals Value Taken Time BP Temp Pulse Resp SpO2 Pain Level Patient Location: PACU/[facility] Level of Consciousness: Conscious but Sleepy Pain [...] BX performed by David Dejesus MD at [facility] ENDOSCOPY ??? PRO COLONOSCOPY, DIAGNOSTIC N/A 03/01/2020 COLONOSCOPY, DIAGNOSTIC performed by David Dejesus MD at [facility] ENDOSCOPY ??? PRO ENDOSCOPIC US EXAM, ESOPH N/A 03/31/2022 UPPER EUS- ENDOSCOPIC ULTRASOUND performed by David Dejesus MD at [facility] ENDOSCOPY ??? PRO UPPER GI ENDOSCOPY, BIOPSY N/A 04/03/2014 UPPER GASTROINTESTINAL ENDOSCOPY,WITH BIOPSY SINGLE OR MULTIPLE performed by David Dejesus MDat [facility] ENDOSCOPY ??? PRO UPPER GI ENDOSCOPY, BIOPSY N/A 03/20/2016 EGD WITH BIOPSY performed by David Dejesus MD at [facility] ENDOSCOPY ??? PRO UPPER GI ENDOSCOPY, BIOPSY N/A 11/22/2018 EGD WITH BIOPSY (WRVU 2.49) performed by David Dejesus MD at [facility] ENDOSCOPY ??? PRO UPPER GI ENDOSCOPY, BIOPSY N/A 03/01/2020 UPPER GASTROINTESTINAL ENDOSCOPY,WITH BIOPSY SINGLE OR MULTIPLE (WRVU 2.49) performed by David Dejesus MD at [facility] ENDOSCOPY ??? PRO UPPER GI ENDOSCOPY, BIOPSY N/A 09/23/2021 EGD WITH BIOPSY (WRVU 2.49) performed by David Dejesus MD at [facility] ENDOSCOPY ??? PRO UPPER GI ENDOSCOPY, BIOPSY N/A 03/31/2022 EGD WITH BIOPSY (WRVU 2.49) performed by David Dejesus MD at [facility] ENDOSCOPY ??? PRO UPPER GI ENDOSCOPY, BIOPSY N/A 07/03/2022 EGD WITH BIOPSY (WRVU 2.49) performed by David Dejesus MD at [facility] ENDOSCOPY ??? PRO UPPER GI ENDOSCOPY, DIAGNOSTIC N/A 04/03/2014 EGD, UPPER GI ENDOSCOPY performed by David Dejesus MD at [facility] ENDOSCOPY ??? PRO UPPER GI ENDOSCOPY, DIAGNOSTIC N/A 03/01/2020 EGD, UPPER GI ENDOSCOPY performed by David Dejesus MD at [facility] ENDOSCOPY Social History Tobacco Use [...] PM EDT Office Visit Cardiology at [address] [address] Milagros Hernandez MD [facility] [place] [address] Scheduled Procedures Name Priority Associated Diagnoses Date/Ti [...] EDT documented in this encounter Care Teams Interactive Developer Relationship Specialty Start Date End Date Ana Gillespie APRN [address] [place] [address] PCP - General Family Medicine 02/03/19 documented as of this encounter
--- OUTSIDE RECORDS SUMMARY | 2024-02-29 19:32 | XMS_ITS | Encounter Summary ---
Author Organization [facility] Address [facility] [place] [address] Care Team Providers Care Display Coordinator Name Role Phone Ana Gillespie VAUGHN Primary Care Provider [phone] Encounter Details Date Type Department Care Team (Late st Contact Info) Description 08/12/2022 Ancillary Procedure Radiology Library at [facility] [place] [address] Social History Tobacco Use Types Packs/Day Years [...] PM EDT Office Visit Cardiology at [address] [address] Milagros Hernandez MD [facility] [place] [address] Scheduled Procedures Name Priority Associated Diagnoses Date/Ti [...] is for storage only. Ayo Serna MD [facility] FILM LIBRARY ORD ERABLES documented in this encounter Visit Diagnoses Not on filedocumented in this encounter Care Teams Display Coordinator Relationship Specialty Start Date End Date Ana Gillespie APRN [address] [place] [address] PCP - General Family Medicine 02/03/19 documented as of this encounter
--- OUTSIDE RECORDS SUMMARY | 2024-02-29 19:32 | XMS_ITS | Encounter Summary ---
Author Organization [facility] Address [facility] [place] [address] Care Team Providers Care Laundry Routeman Name Role Phone Ana Gillespie VAUGHN Primary Care Provider [phone] Encounter Details Date Type Department Care Team (Latest Contact Info) Description 05/21/2022 2:30 PM EST TH Visit (TeleHealth) [place] [address] Alfonso Rose MD [facility] [place] [address] Neuroleptic-induced parkinsonism Social History Tobacco Use Types [...] us on an as-needed basis. This was [id number] call with greater than 10 minutes spent in counseling discussion regarding the above assessment and plan, with additional 10 minutes in review of the medical record. documented in this encounter Plan of Treatment Upcoming Encounters Date Type Department Care Team (Late st Contact Info) Description 03/10/2024 4:00 PM EDT Office Visit Cardiology at [address] [address] Milagros Hernandez MD [facility] [place] [address] Scheduled Procedures Name Priority Associated Diagnoses Date/Ti me EGD, UPPER GI ENDOSCOPY (WRV U 2.09) Peptic stricture of esophagus documented as of this encounter Visit Diagnoses Diagnosis Neuroleptic-induced parkinsonism Secondary Parkinsonism documented in this encounter Care Teams Laundry Routeman Relationship Specialty Start Date End Date Ana Gillespie APRN [address] [place] [address] PCP - General Family Medicine 02/03/19 documented as of this encounter
--- OUTSIDE RECORDS SUMMARY | 2024-02-29 19:32 | XMS_ITS | Encounter Summary ---
Author Organization [facility] Address [facility] [place] [address] Care Team Providers Care Commissary Production Supervisor Name Role Phone Ana Gillespie APRN Primary Care Provider [phone] Encounter Details Date Type Department Care Team (Late st Contact Info) Description 03/31/2022 9:58 AM EST Anesthesia Event [place] [address] Alfonso Duarte MD [facility] DR ANESTHESIOLOGY [place] [address] Sergey Hanh CRNA [facility] DR ANESTHESIOLOGY [place] [address] Anesthesia Record Procedure Summary Procedure Name Responsible [...] 920; median cubital vein (antecubital fossa), right; sbmf-zaf-sujuko catheter system; Anatomical Landmarks; US Not Used; [...] Procedure Summary Date: 03/31/22 Room / Location: [facility] / [facility] Anesthesia Start: 957 Anesthesia Stop: 1038 Procedures: EGD WITH BIOPSY (WRVU 2.49) UPPER EUS- ENDOSCOPIC ULTRASOUND (Trunk) Diagnosis: (Schedule EGD in two years) Surgeons: David Dejesus MD Responsible Provider: Alfonso Duarte MD Anesthesia Type: MAC ASA Status: 3 All Anesthesia Providers: Anesthesiologist: Alfonso Duarte MD FIRE HYDRANT MECHANIC: Susy Juárez CRNA Vitals Value Taken Time BP 108/56 03/31/22 1050 Temp Pulse Resp 19 03/31/22 1050 SpO2 100 % 03/31/22 1100 Pain Level 0 03/31/22 1050 Patient Location: PACU/[facility] Level of Consciousness: Awake and Alert [...] BX performed by David Dejesus MD at [facility] ??? PRO COLONOSCOPY, DIAGNOSTIC N/A 03/01/2020 COLONOSCOPY, DIAGNOSTIC performed by David Dejesus MD at [facility] ??? PRO UPPER GI ENDOSCOPY, BIOPSY N/A 04/03/2014 UPPER GASTROINTESTINAL ENDOSCOPY,WITH BIOPSY SINGLE OR MULTIPLE performed by David Dejesus MDat [facility] ??? PRO UPPER GI ENDOSCOPY, BIOPSY N/A 03/20/2016 EGD WITH BIOPSY performed by David Dejesus MD at [facility] ??? PRO UPPER GI ENDOSCOPY, BIOPSY N/A 11/22/2018 EGD WITH BIOPSY (WRVU 2.49) performed by David Dejesus MD at [facility] ??? PRO UPPER GI ENDOSCOPY, BIOPSY N/A 03/01/2020 UPPER GASTROINTESTINAL ENDOSCOPY,WITH BIOPSY SINGLE OR MULTIPLE (WRVU 2.49) performed by David Dejesus MD at [facility] ??? PRO UPPER GI ENDOSCOPY, BIOPSY N/A 09/23/2021 EGD WITH BIOPSY (WRVU 2.49) performed by David Dejesus MD at [facility] ??? PRO UPPER GI ENDOSCOPY, DIAGNOSTIC N/A 04/03/2014 EGD, UPPER GI ENDOSCOPY performed by David Dejesus MD at [facility] ??? PRO UPPER GI ENDOSCOPY, DIAGNOSTIC N/A 03/01/2020 EGD, UPPER GI ENDOSCOPY performed by David Dejesus MD at [facility] Social History Tobacco Use ??? [...] risks discussed with patient. Plan discussed with FIRE HYDRANT MECHANIC. Pre-Anesthesia Evaluation for: Jennifer Irving a 61 [...] BX performed by David Dejesus MD at [facility] ??? PRO COLONOSCOPY, DIAGNOSTIC N/A 03/01/2020 COLONOSCOPY, DIAGNOSTIC performed by David Dejesus MD at [facility] ??? PRO UPPER GI ENDOSCOPY, BIOPSY N/A 04/03/2014 UPPER GASTROINTESTINAL ENDOSCOPY,WITH BIOPSY SINGLE OR MULTIPLE performed by David Dejesus MDat [facility] ??? PRO UPPER GI ENDOSCOPY, BIOPSY N/A 03/20/2016 EGD WITH BIOPSY performed by David Dejesus MD at [facility] ??? PRO UPPER GI ENDOSCOPY, BIOPSY N/A 11/22/2018 EGD WITH BIOPSY (WRVU 2.49) performed by David Dejesus MD at [facility] ??? PRO UPPER GI ENDOSCOPY, BIOPSY N/A 03/01/2020 UPPER GASTROINTESTINAL ENDOSCOPY,WITH BIOPSY SINGLE OR MULTIPLE (WRVU 2.49) performed by David Dejesus MD at [facility] ??? PRO UPPER GI ENDOSCOPY, BIOPSY N/A 09/23/2021 EGD WITH BIOPSY (WRVU 2.49) performed by David Dejesus MD at [facility] ??? PRO UPPER GI ENDOSCOPY, DIAGNOSTIC N/A 04/03/2014 EGD, UPPER GI ENDOSCOPY performed by David Dejesus MD at [facility] ??? PRO UPPER GI ENDOSCOPY, DIAGNOSTIC N/A 03/01/2020 EGD, UPPER GI ENDOSCOPY performed by David Dejesus MD at [facility] Social History Tobacco Use ??? [...] 5 years - MAC without issue Plan [facility] Violet Miguel MD 01/26/2022 Ingot Stripper Pager #[phone] Informed Consent: Anesthesia Screening Pre-Anesthesia Evaluation for: [...] BX performed by David Dejesus MD at [facility] ??? PRO COLONOSCOPY, DIAGNOSTIC N/A 03/01/2020 COLONOSCOPY, DIAGNOSTIC performed by David Dejesus MD at [facility] ??? PRO UPPER GI ENDOSCOPY, BIOPSY N/A 04/03/2014 UPPER GASTROINTESTINAL ENDOSCOPY,WITH BIOPSY SINGLE OR MULTIPLE performed by David Dejesus MDat [facility] ??? PRO UPPER GI ENDOSCOPY, BIOPSY N/A 03/20/2016 EGD WITH BIOPSY performed by David Dejesus MD at [facility] ??? PRO UPPER GI ENDOSCOPY, BIOPSY N/A 11/22/2018 EGD WITH BIOPSY (WRVU 2.49) performed by David Dejesus MD at [facility] ??? PRO UPPER GI ENDOSCOPY, BIOPSY N/A 03/01/2020 UPPER GASTROINTESTINAL ENDOSCOPY,WITH BIOPSY SINGLE OR MULTIPLE (WRVU 2.49) performed by David Dejesus MD at [facility] ??? PRO UPPER GI ENDOSCOPY, BIOPSY N/A 09/23/2021 EGD WITH BIOPSY (WRVU 2.49) performed by David Dejesus MD at [facility] ??? PRO UPPER GI ENDOSCOPY, DIAGNOSTIC N/A 04/03/2014 EGD, UPPER GI ENDOSCOPY performed by David Dejesus MD at [facility] ??? PRO UPPER GI ENDOSCOPY, DIAGNOSTIC N/A 03/01/2020 EGD, UPPER GI ENDOSCOPY performed by David Dejesus MD at [facility] Social History Tobacco Use ??? [...] risks discussed with patient. Plan discussed with FIRE HYDRANT MECHANIC. Anesthesia Screening Anesthesia Screening documented in this encounter Plan of Treatment Upcoming Encounters Date Type Department Care Team (Late st Contact Info) Description 03/10/2024 4:00 PM EDT Office Visit Cardiology at [address] [address] Milagros Hernandez MD [facility] [place] [address] Scheduled Procedures Name Priority Associated Diagnoses Date/Ti [...] mg documented in this encounter Care Teams Commissary Production Supervisor Relationship Specialty Start Date End Date Ana Gillespie APRN [address] [place] [address] PCP - General Family Medicine 02/03/19 documented as of this encounter
--- OUTSIDE RECORDS SUMMARY | 2024-02-29 19:32 | XMS_ITS | Encounter Summary ---
Author Organization [facility] [place] [address] Care Team Providers Care Tobacco Conditioner Name Role Phone Ana Gillespie VAUGHN Primary Care Provider Encounter Details Date Type Department Care Team (Late st Contact Info) Description 08/15/2022 [place] [phone] Unknown None Social History Tobacco Use Types [...] PM EDT Office Visit Cardiology at [address] [address] Milagros Hernandez MD [facility] [place] [address] Scheduled Procedures Name Priority Associated Diagnoses Date/Ti [...] on filedocumented in this encounter Care Teams Tobacco Conditioner Relationship Specialty Start Date End Date Ana Gillespie APRN [address] [place] [address] PCP - General Family Medicine 02/03/19 documented as of this encounter
--- OUTSIDE RECORDS SUMMARY | 2024-02-29 19:32 | XMS_ITS | Encounter Summary ---
Author Organization [facility] Address [facility] [place] [address] Care Team Providers Care Shell Molding Roller Blast Operator Name Role Phone Ana Gillespie VAUGHN Primary Care Provider [phone] Encounter Details Date Type Department Care Team (Late st Contact Info) Description 08/12/2022 12:05 AM EDT Ancillary Procedure Radiology Library at [facility] [place] [place] [address] Social History Tobacco Use Types Packs/Day Years [...] PM EDT Office Visit Cardiology at [address] [address] Milagros Hernandez MD [facility] [place] [address] Scheduled Procedures Name Priority Associated Diagnoses Date/Ti [...] is for storage only. Ayo Serna MD [facility] FILM LIBRARY ORD ERABLES documented in this encounter Visit Diagnoses Not on filedocumented in this encounter Care Teams Shell Molding Roller Blast Operator Relationship Specialty Start Date End Date Ana Gillespie APRN [address] [place] [address] PCP - General Family Medicine 02/03/19 documented as of this encounter
--- OUTSIDE RECORDS SUMMARY | 2024-02-29 19:32 | XMS_ITS | Encounter Summary ---
Author Organization [facility] Address [facility] [place] [address] Care Team Providers Care Through Freight Engineer Name Role Phone Ana Gillespie VAUGHN Primary Care Provider [phone] Encounter Details Date Type Department Care Team (Late st Contact Info) Description 08/14/2022 Ancillary Procedure Radiology Library [place] [address] Social History Tobacco Use Types Packs/Day Years [...] PM EDT Office Visit Cardiology at [address] [address] Milagros Hernandez MD [facility] [place] [address] Scheduled Procedures Name Priority Associated Diagnoses Date/Ti [...] is for storage only. Ayo Serna MD [facility] FILM LIBRARY ORD ERABLES documented in this encounter Visit Diagnoses Not on filedocumented in this encounter Care Teams Through Freight Engineer Relationship Specialty Start Date End Date Ana Gillespie APRN [address] [place] [address] PCP - General Family Medicine 02/03/19 documented as of this encounter
--- OUTSIDE RECORDS SUMMARY | 2024-02-29 19:33 | XMS_ITS | Encounter Summary ---
Author Organization [facility] Address [facility] [place] [address] Care Team Providers Care Engineer Operations And Maintenance Name Role Phone Ana Gillespie VAUGHN Primary Care Provider [phone] Encounter Details Date Type Department Care Team (Late st Contact Info) Description 09/23/2021 12:30 PM EDT - 09/23/2021 1:00 PM EDT [place] [phone] David Dejesus MD [facility] [place] [place] [address] EGD WITH BIOPSY (WRVU 2.39) Social History [...] the day after the procedure, use an zlzy-gvz-ytchftx spray to numb your throat. Sucking on [...] occurs, please contact your Doctor. Please call [phone] before 8pm Mon-Fri with problems, questions or concerns. If you call after 8pm or on weekends, call the Hospital at [phone] and ask to speak to the Fish Hatchery Man client relations specialist and the oil well cable tool operator will contact that person for you. [...] After Visit Summary and more online at [email or web address] If you would like to provide feedback about your hospital experience, please call the Office of Patient and Family Relations at . If you have received this After Visit Summary in error, please immediately return it in person to the department, or notify the [facility] Privacy Office by calling toll free at between the hours of 8AM and 5PM to arrange for our retrieval of the documents at no cost to you. Content Version: 12.2 ?? [id number] [employer]. Care instructions adapted under license by [facility]. If you have questions about a medical condition or this instruction, always ask your healthcare professional. [employer] disclaims any warranty or liability for your [...] meter kit. 1 each 0 12/14/2014 Insulin Homer, Disposable, (BD INSULIN PEN NEEDLE UF MINI) [...] 2 times daily. ??? Blood Sugar Diagnostic (BillGuardTOUCH ULTRA TEST) Strip 1 each by Other [...] for dosing. 15 mL 11 ??? Insulin Homer, Disposable, (BD INSULIN PEN NEEDLE UF MINI) [...] daily. 180 capsule 3 ??? Blood-Glucose Meter (BillGuardTOUCH ULTRA2) Kit by Other route. 1 = [...] PM EDT Office Visit Cardiology at [address] [address] Milagros Hernandez MD [facility] [place] [address] Scheduled Procedures Name Priority Associated Diagnoses Date/Ti me EGD, UPPER GI ENDOSCOPY (WRV U 2.09) Peptic stricture of esophagus documented as of this encounter Procedures Procedure Name Priority Date/Time Associated Diagnosis Comments SURGICAL PATHOLOGY REPORT Routine 09/23/2021 12:24 PM EDT SPECIMEN TO PATHOLOGY Routine 09/23/2021 12:24 PM EDT SPECIMEN TO PATHOLOGY Routine 09/23/2021 12:24 PM EDT Upper Gi Endoscopy, Biopsy ([id number]) 09/23/2021 12:02 PM EDT Gastroesophageal reflux disease with esophagitis without hemorrhage UPPER GI ENDOSCOPY Routine 09/23/2021 11 :52 AM EDT documented in this encounter Results * Surgical Pathology Report (09/23/2021 12:24 PM EDT) Final Diagnosis ? Location: 4; [facility]; A The signing pathologist has (i) [...] Jeniffer Verified: ??09/26/2021 19:44 ??Pathologist Performed at: ??-[facility] Dept. of [place], [place], [place] SPECIMEN(S) SUBMITTED A - Distal esophagus [...] labeled B1-B2. ??shb 09/26/2021 7:44 PM EDT [facility] GI Biopsy 09/23/2021 12:2 4 PM EDT 09/23/2021 12:24 PM EDT GI Biopsy 09/23/2021 12:2 4 PM EDT 09/23/2021 12:24 PM EDT David Dejesus MD PATHOLOGY/CYTOLOGY ORDERABLES Performing Organization Address City/[facility]/ZIP Co de Phone Number [facility] [place] [address] * Specimen to Pathology (09/23/2021 12:24 PM EDT) AP Specimen 09/23/2021 12:2 4 PM EDT 09/23/2021 12:24 PM EDT Narrative [facility] - 09/23/2021 12:24 PM EDT Specimen requisition ordered. ??Separate Pathology report to follow David Dejesus MD PATHOLOGY/CYTOLOGY ORDERABLES Performing Organization Address City/[facility]/ZIP Co de Phone Number [facility] [place] [address] * Specimen to Pathology (09/23/2021 12:24 PM EDT) AP Specimen 09/23/2021 12:2 4 PM EDT 09/23/2021 12:24 PM EDT Narrative [facility] - 09/23/2021 12:24 PM EDT Specimen requisition ordered. ??Separate Pathology report to follow David Dejesus MD PATHOLOGY/CYTOLOGY ORDERABLES Performing Organization Address City/[facility]/ZIP Co de Phone Number [facility] [place] [address] * UPPER GI ENDOSCOPY (09/23/2021 11:52 AM EDT) Pathologist [facility] UPPER GI ENDOSCOPY [facility] Endoscopy Procedure Date: 09/23/2021 11:52 AM ? Patient Name: Jennifer Irving ? Date of : 1960 ? Age: 61 ? Order #: [id number] ? Instrument Name: [id number] ? Procedure: ? Upper GI endoscopy Indications: ? Heartburn Providers: ? David Dejesus MD, Neej J. ? [address], ? Theodora Farrell, Head Of Music Referring MD: ?Ana Keith: ? Monitored Anesthesia [...] 09/23/2021 11:5 2 AM EDT Ana Gillespie SPRING ASSEMBLER SUPERVISOR GENERAL SURGICAL ORD ERABLES PROVATION documented in [...] RN) documented in this encounter Care Teams Engineer Operations And Maintenance Relationship Specialty Start Date End Date Ana Gillespie APRN [address] [place] [address] PCP - General Family Medicine 02/03/19 documented as of this encounter
--- OUTSIDE RECORDS SUMMARY | 2024-02-29 19:33 | XMS_ITS | Encounter Summary ---
Author Organization [facility] [place] [address] Care Team Providers Care Caustic Liquor Maker Name Role Phone Ana Gillespie APRN Primary Care Provider [phone] Reason for Visit * Reason Onset Date Comments Medication Refill 09/17/2020 Encounter Details Date Type Department Care Team (Late st Contact Info) Description 09/17/2020 Ref[place] [phone] David Dejesus MD [facility] [place] [address] Social History Tobacco Use Types Packs/Day Years [...] PM EDT Office Visit Cardiology at [address] [phone] Milagros Hernandez MD [facility] [place] [address] Scheduled Procedures Name Priority Associated Diagnoses Date/Ti me EGD, UPPER GI ENDOSCOPY (WRV U 2.09) Peptic stricture of esophagus documented as of this encounter Visit Diagnoses Not on filedocumented in this encounter Care Teams Caustic Liquor Maker Relationship Specialty Start Date End Date Ana Gillespie APRN [address] [place] [address] PCP - General Family Medicine 02/03/19 documented as of this encounter
--- OUTSIDE RECORDS SUMMARY | 2024-02-29 19:33 | XMS_ITS | Encounter Summary ---
Author Organization [facility] [place] [address] Care Team Providers Care Passenger Representative Name Role Phone Ana Gillespie VAUGHN Primary Care Provider [phone] Encounter Details Date Type Department Care Team (Late st Contact Info) Description 10/27/2021 Telephone [place] [address] Chiquita James, RN Social History [...] PM EDT Office Visit Cardiology at [address] [address] Milagros Hernandez MD [facility] [place] [address] Scheduled Procedures Name Priority Associated Diagnoses Date/Ti me EGD, UPPER GI ENDOSCOPY (WRV U 2.09) Peptic stricture of esophagus documented as of this encounter Visit Diagnoses Not on filedocumented in this encounter Care Teams Passenger Representative Relationship Specialty Start Date End Date Ana Gillespie APRN [address] [place] [address] PCP - General Family Medicine 02/03/19 documented as of this encounter
--- OUTSIDE RECORDS SUMMARY | 2024-02-29 19:33 | XMS_ITS | Encounter Summary ---
Author Organization [facility] Address [facility] [place] [address] Care Team Providers Care Solar Designer Name Role Phone Ana Gillespie VAUGHN Primary Care Provider [phone] Encounter Details Date Type Department Care Team (Late st Contact Info) Description 09/29/2021 Telephone [place] [phone] David Dejesus MD [facility] [place] [address] Social History Tobacco Use Types Packs/Day Years [...] PM EDT Office Visit Cardiology at [address] [phone] Milagros Hernandez MD [facility] [address] Scheduled Procedures Name Priority Associated Diagnoses Date/Ti me EGD, UPPER GI ENDOSCOPY (WRV U 2.09) Peptic stricture of esophagus documented as of this encounter Visit Diagnoses Not on filedocumented in this encounter Care Teams Solar Designer Relationship Specialty Start Date End Date Ana Gillespie APRN [address] [place] [address] PCP - General Family Medicine 02/03/19 documented as of this encounter
--- OUTSIDE RECORDS SUMMARY | 2024-02-29 19:33 | XMS_ITS | Encounter Summary ---
Author Organization [facility] Address [facility] [place] [address] Care Team Providers Care Powderman Name Role Phone Ana Gillespie CHROME POLISHER Primary Care Provider [phone] Encounter Details Date Type Department Care Team (Late st Contact Info) Description 09/16/2020 Orders [place] [phone] David Dejesus MD [facility] [place] [address] Social History Tobacco Use Types Packs/Day Years [...] PM EDT Office Visit Cardiology at [address] [phone] Milagros Hernandez MD [facility] [place] [address] Scheduled Procedures Name Priority Associated Diagnoses Date/Ti me EGD, UPPER GI ENDOSCOPY (WRV U 2.09) Peptic stricture of esophagus documented as of this encounter Visit Diagnoses Not on filedocumented in this encounter Care Teams Powderman Relationship Specialty Start Date End Date Ana Gillespie APRN [address] [place] [address] PCP - General Family Medicine 02/03/19 documented as of this encounter
--- OUTSIDE RECORDS SUMMARY | 2024-02-29 19:33 | XMS_ITS | Encounter Summary ---
Author Organization [facility] Address [facility] [place] [address] Care Team Providers Care Bisque Cleaner Name Role Phone Ana Gillespie VAUGHN Primary Care Provider [phone] Reason for Visit * Consultation (Routine) - Closed Specialty Diagnoses / Procedures Referred By Esperanza rodríguez Referred To Contact Neurology Diagnoses Primary parkinsonism David Dejesus MD [facility] [place] [address] [facility] [address] [place] [address] Referral ID Status Reason Start Date Expiration Date V isits Requested Visits Authorized [id number] Closed Consult, Test & Treat 09/23/2021 09/23/2022 1 1 Encounter Details Date Type Department Care Team (Late st Contact Info) Description 02/12/2022 11:00 AM EDT Office [place] [address] Alfonso Rose MD [facility] [place] [address] Neuroleptic-induced parkinsonism Social History Tobacco [...] Jennifer Irving Provider: Alfonso Rose MD PhD ([id number]) Vis: February 12, 2022 Requesting Physician: David [...] performed by David Dejesus MD at [facility] ENDOSCOPY ??? PRO COLONOSCOPY, DIAGNOSTIC N/A 03/01/2020 COLONOSCOPY, DIAGNOSTIC performed by David Dejesus MD at [facility] ENDOSCOPY ??? PRO UPPER GI ENDOSCOPY, BIOPSY N/A 04/03/2014 UPPER GASTROINTESTINAL ENDOSCOPY,WITH BIOPSY SINGLE OR MULTIPLE performed by David Dejesus MDat [facility] ENDOSCOPY ??? PRO UPPER GI ENDOSCOPY, BIOPSY N/A 03/20/2016 EGD WITH BIOPSY performed by David Dejesus MD at [facility] ENDOSCOPY ??? PRO UPPER GI ENDOSCOPY, BIOPSY N/A 11/22/2018 EGD WITH BIOPSY (WRVU 2.49) performed by David Dejesus MD at [facility] ENDOSCOPY ??? PRO UPPER GI ENDOSCOPY, BIOPSY N/A 03/01/2020 UPPER GASTROINTESTINAL ENDOSCOPY,WITH BIOPSY SINGLE OR MULTIPLE (WRVU 2.49) performed by David Dejesus MD at [facility] ENDOSCOPY ??? PRO UPPER GI ENDOSCOPY, BIOPSY N/A 09/23/2021 EGD WITH BIOPSY (WRVU 2.49) performed by David Dejesus MD at [facility] ENDOSCOPY ??? PRO UPPER GI ENDOSCOPY, DIAGNOSTIC N/A 04/03/2014 EGD, UPPER GI ENDOSCOPY performed by David Dejesus MD at [facility] ENDOSCOPY ??? PRO UPPER GI ENDOSCOPY, DIAGNOSTIC N/A 03/01/2020 EGD, UPPER GI ENDOSCOPY performed by David Dejesus MD at [facility] ENDOSCOPY Social History Social History Socioeconomic [...] for dosing. 15 mL 11 ??? Insulin Pablo, Disposable, (BD INSULIN PEN NEEDLE UF MINI) 31 x 3/16 Needle 1 Device by [facility].(Non-Drug; Combo Route) route 3 times daily as [...] Coordination: ?? Finger to nose: intact ?? Xebc-fceq-feao: intact ?? Tandem: intact ?? Gait: ?? [...] in this encounter. Alfonso Rose MD PhD [facility] Neurology documented in this encounter Miscellaneous [...] PM EDT Office Visit Cardiology at [address] [phone] Milagros Hernandez MD [facility] [place] [address] Scheduled Procedures Name Priority Associated Diagnoses Date/Ti me EGD, UPPER GI ENDOSCOPY (WRV U 2.09) Peptic stricture of esophagus Scheduled Referrals Name Type Priority Associated Diagnoses Orde r Schedule Referral to Neurology Outpatient Referral Routine Primary Parkinsonism Ordered: 09/23/2021 documented as of this encounter Visit Diagnoses Diagnosis Neuroleptic-induced parkinsonism Secondary Parkinsonism documented in this encounter Care Teams Bisque Cleaner Relationship Specialty Start Date End Date Ana Gillespie APRN [address] [place] [address] PCP - General Family Medicine 02/03/19 documented as of this encounter
--- OUTSIDE RECORDS SUMMARY | 2024-02-29 19:33 | XMS_ITS | Encounter Summary ---
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 She needs this to be sent to the [place] [facility] [employer] for medical issue. Forwarded for review documented in this encounter Plan of Treatment Upcoming Encounters Date Type Department Care Team (Late st Contact Info) Description 03/10/2024 4:00 PM EDT Office Visit Cardiology at [address] [phone] Milagros Hernandez MD [facility] [place] [address] Scheduled Procedures Name Priority Associated Diagnoses Date/Ti me EGD, UPPER GI ENDOSCOPY (WRV U 2.09) Peptic stricture of esophagus documented as of this encounter Visit Diagnoses Not on filedocumented in this encounter Care Teams Director Of Financial Aid Relationship Specialty Start Date End Date Ana Gillespie APRN [address] [place] [address] PCP - General Family Medicine 02/03/19 documented as of this encounter
--- OUTSIDE RECORDS SUMMARY | 2024-02-29 19:33 | XMS_ITS | Encounter Summary ---
[place] [address] Care Team Providers Care L Tacker Name Role Phone Ana Gillespie VAUGHN Primary Care Provider [phone] Encounter Details Date Type Department Care Team (Late st Contact Info) Description 11/20/2021 Telephone [place] [address] Chiquita James, RN Social History [...] states they have called multiple times to [phone], and been on hold upwards of [phone] [...] PM EDT Office Visit Cardiology at [address] [address] Milagros Hernandez MD [facility] [place] [place] [address] Scheduled Procedures Name Priority Associated Diagnoses Date/Ti me EGD, UPPER GI ENDOSCOPY (WRV U 2.09) Peptic stricture of esophagus documented as of this encounter Visit Diagnoses Not on filedocumented in this encounter Care Teams L Tacker Relationship Specialty Start Date End Date Ana Gillespie APRN [address] [place] [address] PCP - General Family Medicine 02/03/19 documented as of this encounter
--- OUTSIDE RECORDS SUMMARY | 2024-02-29 19:33 | XMS_ITS | Encounter Summary ---
Author Organization [facility] [place] [address] Care Team Providers Care Polysomnography Technician Name Role Phone Ana Gillespie VAUGHN Primary Care Provider [phone] Encounter Details Date Type Department Care Team (Late st Contact Info) Description 10/29/2021 Telephone [place] [phone] Juice Maxwell RN Social History Tobacco Use [...] PM EDT Office Visit Cardiology at [address] [phone] Milagros Hernandez MD [facility] [place] [address] Scheduled Procedures Name Priority Associated Diagnoses Date/Ti me EGD, UPPER GI ENDOSCOPY (WRV U 2.09) Peptic stricture of esophagus documented as of this encounter Visit Diagnoses Not on filedocumented in this encounter Care Teams Polysomnography Technician Relationship Specialty Start Date End Date Ana Gillespie APRN [address] [place] [address] PCP - General Family Medicine 02/03/19 documented as of this encounter
--- OUTSIDE RECORDS SUMMARY | 2024-02-29 19:33 | XMS_ITS | Encounter Summary ---
Author Organization [facility] Address [facility] [place] [address] Care Team Providers Care Seam Steamer Name Role Phone Ana Gillespie VAUGHN Primary Care Provider [phone] Encounter Details Date Type Department Care Team (Late st Contact Info) Description 12/28/2019 Telephone [place] [address] Rober Tobin Social History Tobacco [...] PM EDT Office Visit Cardiology at [address] [phone] Milagros Hernandez MD [facility] [place] [address] Scheduled Procedures Name Priority Associated Diagnoses Date/Ti me EGD, UPPER GI ENDOSCOPY (WRV U 2.09) Peptic stricture of esophagus documented as of this encounter Visit Diagnoses Not on filedocumented in this encounter Care Teams Seam Steamer Relationship Specialty Start Date End Date Ana Gillespie APRN [address] [place] [address] PCP - General Family Medicine 02/03/19 documented as of this encounter
--- OUTSIDE RECORDS SUMMARY | 2024-02-29 19:33 | XMS_ITS | Encounter Summary ---
Author Organization [facility] Address [facility] [place] [address] Care Team Providers Care Email Marketing Coordinator Name Role Phone David Blue MD Primary Care Provider [phone] Encounter Details Date Type Department Care Team (Late st Contact Info) Description 11/22/2018 12:20 PM EDT Anesthesia [place] [address] Keyana Short MD [facility] [place] [address] Alexandrea Wang CRNA [facility] DR ANESTHESIOLOGY [place] [address] Anesthesia Record Procedure Summary Procedure Name Responsible Anesthesiologist Anesthesia Start Time Anesthesia Stop Time EGD WITH BIOPSY (WRVU 2.39) (Trunk) Keyana Short MD 11/22/18 1220 11/22/18 1253 Events Date Time Event Comment 11/22/2018 1218 1220 AN Verify 1220 Start 1220 An Start Data 1223 Break/Relief In MARIA DE JESUS A ST C YR, REGULATED PROGRAM MANAGER 1225 An Induction 1227 Anesthesia Ready 1228 [...] basilic vein (medial side of arm), right; pwyd-ztv-atkkfg catheter system; 20 gauge; Gertrudis Cintron RN; [...] Procedure Summary Date: 11/22/18 Room / Location: [facility] ENDO 2 / [facility] ENDOSCOPY Anesthesia Start: 1220 Anesthesia Stop: 1253 Procedure: EGD WITH BIOPSY (WRVU 2.49) (N/A Trunk) Diagnosis: (Farrell's esophagus) (proclear) Surgeon: David Dejesus MD Responsible Provider: Keyana Short MD Anesthesia Type: MAC ASA Status: 2 All Anesthesia Providers: Anesthesiologist: Keyana Short MD REGULATED PROGRAM MANAGER: Alexandrea Wang CRNA Vitals Value Taken Time BP 135/62 11/22/2018 1:20 PM Temp Pulse Resp SpO2 95 % 11/22/2018 1:30 PM Pain Level 0 11/22/2018 1:30 PM Patient Location: PACU/[facility] Level of Consciousness: Awake and Alert Pain [...] MD at [facility] ENDOSCOPY Social History Tobacco Use ??? [...] PM EDT Office Visit Cardiology at [address] [address] Milagros Hernandez MD [facility] [place] [address] Scheduled Procedures Name Priority Associated Diagnoses Date/Ti [...] hr documented in this encounter Care Teams Email Marketing Coordinator Relationship Specialty Start Date End Date David Blue MD [address] [place] [address] PCP - General 04/01/10 02/02/19 documented as of this encounter
--- OUTSIDE RECORDS SUMMARY | 2024-02-29 19:33 | XMS_ITS | Encounter Summary ---
Author Organization [facility] Address [facility] [place] [address] Care Team Providers Care Cable Hooker Name Role Phone Ana Gillespie VAUGHN Primary Care Provider [phone] Reason for Referral * Consultation (PJ) - Closed Specialty Diagnoses / Procedures Referred By Contjovani t Referred To Contact Gastroenterology Diagnoses Iron deficiency anemia due to chronic blood loss Procedures needs egd/colonoscopy for GERD and screening colo pj David Dejesus MD [facility] [place] [address] [facility] Endoscopy [address] [place] [address] Referral ID Status Reason Start Date Expiration Date V isits Requested Visits Authorized [id number] Closed Consult, Test & Treat 12/25/2019 12/24/2020 1 1 Encounter Details Date Type Department Care Team (Late st Contact Info) Description 12/25/2019 Orders Only [place] [address] David Dejesus MD [facility] [place] [address] Iron deficiency anemia due to chronic blood [...] PM EDT Office Visit Cardiology at [address] [phone] Milagros Hernandez MD [facility] [place] [address] Scheduled Procedures Name Priority Associated Diagnoses Date/Ti [...] (chronic) documented in this encounter Care Teams Cable Hooker Relationship Specialty Start Date End Date Ana Gillespie APRN [address] [place] [address] PCP - General Family Medicine 02/03/19 documented as of this encounter
--- OUTSIDE RECORDS SUMMARY | 2024-02-29 19:33 | XMS_ITS | Encounter Summary ---
Author Organization Formerly [facility] [place] [address] Care Team Providers Care Automobile Service Station Attendant Name Role Phone Ana Gillespie APRN Primary Care Provider [phone] Reason for Visit * Reason Onset Date Comments Medication Refill 11/13/2019 Encounter Details Date Type Department Care Team (Late st Contact Info) Description 11/13/2019 Ref[place] [phone] David Dejesus MD [facility] [place] [address] Social History Tobacco Use Types Packs/Day Years [...] PM EDT Office Visit Cardiology at [address] [phone] Milagros Hernandez MD [facility] [place] [address] Scheduled Procedures Name Priority Associated Diagnoses Date/Ti me EGD, UPPER GI ENDOSCOPY (WRV U 2.09) Peptic stricture of esophagus documented as of this encounter Visit Diagnoses Not on filedocumented in this encounter Care Teams Automobile Service Station Attendant Relationship Specialty Start Date End Date Ana Gillespie APRN [address] [place] [address] PCP - General Family Medicine 02/03/19 documented as of this encounter
--- OUTSIDE RECORDS SUMMARY | 2024-02-29 19:33 | XMS_ITS | Encounter Summary ---
[place] [address] Care Team Providers Care Food Bagging Machine Operator Name Role Phone Ana Gillespie APRN Primary Care Provider [phone] Encounter Details Date Type Department Care Team (Late st Contact Info) Description 12/26/2021 Telephone [place] [address] Rober Tobin Social History Tobacco [...] Return calls can be handled by: Endoscopy Forestry Conservation Worker [phone] documented in this encounter Plan of Treatment Upcoming Encounters Date Type Department Care Team (Late st Contact Info) Description 03/10/2024 4:00 PM EDT Office Visit Cardiology at [address] [address] Milagros Hernandez MD [facility] [place] [address] Scheduled Procedures Name Priority Associated Diagnoses Date/Ti me EGD, UPPER GI ENDOSCOPY (WRV U 2.09) Peptic stricture of esophagus documented as of this encounter Visit Diagnoses Not on filedocumented in this encounter Care Teams Food Bagging Machine Operator Relationship Specialty Start Date End Date Ana Gillespie APRN [address] [place] [address] PCP - General Family Medicine 02/03/19 documented as of this encounter
--- OUTSIDE RECORDS SUMMARY | 2024-02-29 19:33 | XMS_ITS | Encounter Summary ---
Author Organization [facility] Address [facility] [place] [address] Care Team Providers Care Gardening Manager Name Role Phone Ana Gillespie VAUGHN Primary Care Provider [phone] Reason for Referral * Consultation (Routine) - Closed Specialty Diagnoses / Procedures Referred By Esperanza rodríguez Referred To Contact Neurology Diagnoses Primary parkinsonism David Dejesus MD [facility] [place] [address] [facility] [address] [place] [address] Referral ID Status Reason Start Date Expiration Date V isits Requested Visits Authorized [id number] Closed Consult, Test & Treat 09/23/2021 09/23/2022 1 1 Encounter Details Date Type Department Care Team (Late st Contact Info) Description 09/23/2021 Orders Only [place] [phone] David Dejesus MD [facility] [place] [address] Primary parkinsonism Social History Tobacco Use Types [...] PM EDT Office Visit Cardiology at [address] [address] Milagros Hernandez MD [facility] [place] [address] Scheduled Procedures Name Priority Associated Diagnoses Date/Ti me EGD, UPPER GI ENDOSCOPY (WRV U 2.09) Peptic stricture of esophagus Scheduled Referrals Name Type Priority Associated Diagnoses Orde r Schedule Referral to Neurology Outpatient Referral Routine Primary Parkinsonism Ordered: 09/23/2021 documented as of this encounter Visit Diagnoses Diagnosis Primary parkinsonism Paralysis agitans documented in this encounter Care Teams Gardening Manager Relationship Specialty Start Date End Date Ana Gillespie APRN [address] [place] [address] PCP - General Family Medicine 02/03/19 documented as of this encounter
--- OUTSIDE RECORDS SUMMARY | 2024-02-29 19:33 | XMS_ITS | Encounter Summary ---
Author Organization [facility] [place] [address] Care Team Providers Care Senior Foreman Name Role Phone Ana Gillespie VAUGHN Primary Care Provider [phone] Encounter Details Date Type Department Care Team (Late st Contact Info) Description 09/12/2021 Telephone [place] [address] Chiquita James, RN Social History [...] PM EDT Office Visit Cardiology at [address] [address] Milagros Hernandez MD [facility] [place] [address] Scheduled Procedures Name Priority Associated Diagnoses Date/Ti me EGD, UPPER GI ENDOSCOPY (WRV U 2.09) Peptic stricture of esophagus documented as of this encounter Visit Diagnoses Not on filedocumented in this encounter Care Teams Senior Foreman Relationship Specialty Start Date End Date Ana Gillespie APRN [address] [place] [address] PCP - General Family Medicine 02/03/19 documented as of this encounter
--- OUTSIDE RECORDS SUMMARY | 2024-02-29 19:33 | XMS_ITS | Encounter Summary ---
Author Organization [facility] [place] [address] Care Team Providers Care Science Job Titles Name Role Phone Ana Gillespie VAUGHN Primary Care Provider Encounter Details Date Type Department Care Team (Late st Contact Info) Description 07/14/2021 Telephone [place] [phone] Chiquita James, RN Social History Tobacco Use [...] PM EDT Office Visit Cardiology at [address] [phone] Milagros Hernandez MD [facility] [place] [address] Scheduled Procedures Name Priority Associated Diagnoses Date/Ti me EGD, UPPER GI ENDOSCOPY (WRV U 2.09) Peptic stricture of esophagus documented as of this encounter Visit Diagnoses Not on filedocumented in this encounter Care Teams Science Job Titles Relationship Specialty Start Date End Date Ana Gillespie APRN [address] [place] [address] PCP - General Family Medicine 02/03/19 documented as of this encounter
--- OUTSIDE RECORDS SUMMARY | 2024-02-29 19:33 | XMS_ITS | Encounter Summary ---
[place] [address] Care Team Providers Care Shale Miner Blasting Name Role Phone Ana Gillespie VAUGHN Primary Care Provider [phone] Reason for Visit * Reason Onset Date Comments Prior Authorization 10/21/2021 Encounter Details Date Type Department Care Team (Late st Contact Info) Description 10/21/2021 Telephone [place] [address] Libby Liu CCMA Prior Authorization Social History [...] Prior Authorization 4L Gastroenterology / [place] [address] Subscriber Insurance: [place] Medicaid Phone: Fax: Physician: David Dejesus NPI: Return Pharmacy: Phone: Fax: Medication Requested: Pantoprazole Strength:40mg Frequency: Take 1 Tablet by mouth twice daily Disp.: Refills: Currently taking: yes Diagnosis for this medication: Farrell's, GERD ICD-10 code: (K22.70) (K21.00) Prior medications trialed in this patient: Esomeprazole, Pantoprazole 1x daily, 20mg, Sucralfate Medication: Outcome/Adverse Reactions:Treatment Failure Decision: Approved Tracking number/Case number/Reference number: [id number] Effective date: Start: 10/21/2021 End: 10/21/2022 documented in this encounter Plan of Treatment Upcoming Encounters Date Type Department Care Team (Late st Contact Info) Description 03/10/2024 4:00 PM EDT Office Visit Cardiology at [address] [address] Milagros Hernandez MD [facility] [place] [address] Scheduled Procedures Name Priority Associated Diagnoses Date/Ti me EGD, UPPER GI ENDOSCOPY (WRV U 2.09) Peptic stricture of esophagus documented as of this encounter Visit Diagnoses Not on filedocumented in this encounter Care Teams Shale Miner Blasting Relationship Specialty Start Date End Date Ana Gillespie APRN [address] [place] [address] PCP - General Family Medicine 02/03/19 documented as of this encounter
--- OUTSIDE RECORDS SUMMARY | 2024-02-29 19:33 | XMS_ITS | Encounter Summary ---
[place] [address] Care Team Providers Care Senior Investment Manager Name Role Phone Ana Gillespie VAUGHN Primary Care Provider [phone] Reason for Visit * Reason Onset Date Comments Prior Authorization 09/18/2020 Encounter Details Date Type Department Care Team (Late st Contact Info) Description 09/18/2020 Telephone [place] [address] Francoise Vides CMA GASTROENTEROLOGY DEPT Prior Authorization [...] Prior Authorization 4L Gastroenterology / [place] [address] ?? Subscriber Insurance: [place] Medicaid ?? Phone: . Fax: ? Physician: David Dejesus ? Return ?? Pharmacy: [facility] ? Medication Requested: pantoprazole ?? Strength: 40 mg Frequency: BID ?? Disp.: 180 Refills: 3 ?? Currently taking: n Diagnosis for this medication: Farrell's w/ dysplasia, and GERD ?? ICD-10 code: ?? Prior medications trialed in this patient: Pantoprazole QD, esomperazole, and omeprazole,tums,zantac ? Medication: Outcome/Adverse Reactions: treatment failure ?? Decision: approved Start:09/18/20 End: 09/18/21 ?? Tracking number/Case number/Reference number: [id number] ? documented in this encounter Plan of Treatment Upcoming Encounters Date Type Department Care Team (Late st Contact Info) Description 03/10/2024 4:00 PM EDT Office Visit Cardiology at [address] [address] Milagros Hernandez MD [facility] [place] [address] Scheduled Procedures Name Priority Associated Diagnoses Date/Ti me EGD, UPPER GI ENDOSCOPY (WRV U 2.09) Peptic stricture of esophagus documented as of this encounter Visit Diagnoses Not on filedocumented in this encounter Care Teams Senior Investment Manager Relationship Specialty Start Date End Date Ana Gillespie APRN [address] [place] [address] PCP - General Family Medicine 02/03/19 documented as of this encounter
--- OUTSIDE RECORDS SUMMARY | 2024-02-29 19:33 | XMS_ITS | Encounter Summary ---
Author Organization Formerly [facility] Address [facility] [place] [address] Care Team Providers Care Or First Assist Registered Nurse Name Role Phone Ana Gillespie VAUGHN Primary Care Provider Reason for Referral * Consultation (Routine) - Duplicate Referral Specialty Diagnoses / Procedures Referred By Esperanza rodríguez Referred To Contact Gastroenterology Diagnoses Functional diarrhea David Dejesus MD [facility] [place] [address] [facility] [address] [place] [phone] Referral ID Status Reason Start Date Expiration Date Visits Requested Visits Authorized [id number] Duplicate Referral Consult, Test & Treat 10/16/2019 10/15/2020 1 1 Encounter Details Date Type Department Care Team ([facility] Contact Info) Description 10/16/2019 Orders [place] [address] David Dejesus MD [facility] [place] [address] Functional diarrhea Social History Tobacco Use Types [...] PM EDT Office Visit Cardiology at [address] [address] Milagros Hernandez MD [facility] [place] [address] Scheduled Procedures Name Priority Associated Diagnoses Date/Ti me EGD, UPPER GI ENDOSCOPY (WRV U 2.09) Peptic stricture of esophagus Scheduled Referrals Name Type Priority Associated Diagnoses Order Schedule Referral to Gastroenterology Outpatient Referral Routine Functional diarrhea Ordered: 10/16/2019 documented as of this encounter Visit Diagnoses Diagnosis Functional diarrhea documented in this encounter Care Teams Or First Assist Registered Nurse Relationship Specialty Start Date End Date Ana Gillespie APRN [address] [place] [address] PCP - General Family Medicine 02/03/19 documented as of this encounter
--- OUTSIDE RECORDS SUMMARY | 2024-02-29 19:33 | XMS_ITS | Encounter Summary ---
Author Organization [facility] [place] [address] Care Team Providers Care Salvager Helper Name Role Phone Ana Gillespie APRN Primary Care Provider [phone] Reason for Visit * Reason Onset Date Comments Medication Refill 09/08/2019 Encounter Details Date Type Department Care Team (Late st Contact Info) Description 09/08/2019 Ref[place] [phone] David Dejesus MD [facility] [place] [address] Social History Tobacco Use Types Packs/Day Years [...] PM EDT Office Visit Cardiology at [address] [phone] Milagros Hernandez MD [facility] [place] [address] Scheduled Procedures Name Priority Associated Diagnoses Date/Ti me EGD, UPPER GI ENDOSCOPY (WRV U 2.09) Peptic stricture of esophagus documented as of this encounter Visit Diagnoses Not on filedocumented in this encounter Care Teams Salvager Helper Relationship Specialty Start Date End Date Ana Gillespie APRN [address] [place] [address] PCP - General Family Medicine 02/03/19 documented as of this encounter
--- OUTSIDE RECORDS SUMMARY | 2024-02-29 19:33 | XMS_ITS | Encounter Summary ---
Author Organization [facility] [place] [address] Care Team Providers Care Picture Framer Name Role Phone Ana Gillespie APRN Primary Care Provider [phone] Encounter Details Date Type Department Care Team (Late st Contact Info) Description 12/01/2021 Telephone [place] [phone] Alla Mejia Social History Tobacco Use Types [...] - 12/01/2021 4:07 PM EDT Jennifer Irving [id number] Diagnosis/Indication: folow-up esophagitis Please review patient chart [...] your procedure. Who will likely be your courtesy bus driver for the procedure? *Please Verify the [...] PM EDT Office Visit Cardiology at [address] [address] Milagros Hernandez MD [facility] [place] [address] Scheduled Procedures Name Priority Associated Diagnoses Date/Ti me EGD, UPPER GI ENDOSCOPY (WRV U 2.09) Peptic stricture of esophagus documented as of this encounter Visit Diagnoses Not on filedocumented in this encounter Care Teams Picture Framer Relationship Specialty Start Date End Date Ana Gillespie APRN [address] [place] [address] PCP - General Family Medicine 02/03/19 documented as of this encounter
--- OUTSIDE RECORDS SUMMARY | 2024-02-29 19:33 | XMS_ITS | Encounter Summary ---
Author Organization [facility] Address [facility] [place] [address] Care Team Providers Care Media Analytics Manager Name Role Phone Ana Gillespie VAUGHN Primary Care Provider [phone] Reason for Visit * Auth/Cert Specialty Diagnoses / Procedures Referred By Esperanza rodríguez Referred To Contact Diagnoses esophagitis - please schedule in mid August Procedures PRO UPPER GI ENDOSCOPY, DIAGNOSTIC EGD, UPPER GI ENDOSCOPY Referral ID Status Reason Start Date Expiration Date Visits Re quested Visits Authorized [id number] 1 1 Encounter Details Date Type Department Care Team (Latest Contact Info) Description 09/09/2021 1:21 PM EDT - 09/09/2021 9:08 PM EDT Hospital En[place] [address] David Dejesus MD [facility] [place] [address] Discharge Disposition: Home Social History Tobacco Use [...] meter kit. 1 each 0 12/14/2014 Insulin Axis, Disposable, (BD INSULIN PEN NEEDLE UF MINI) 31 x 3/16 NeedleIndications:Di abetes mellitus type 2, uncontrolled 1 Device by [facility].(Non-Drug; Combo Route) route 3 times daily as [...] PM EDT Office Visit Cardiology at [address] [address] Milagros Hernandez MD [facility] [place] [address] Scheduled Procedures Name Priority Associated Diagnoses Date/Ti me EGD, UPPER GI ENDOSCOPY (WRV U 2.09) Peptic stricture of esophagus documented as of this encounter Visit Diagnoses Not on filedocumented in this encounter Care Teams Media Analytics Manager Relationship Specialty Start Date End Date Ana Gillespie APRN [address] [place] [address] PCP - General Family Medicine 02/03/19 documented as of this encounter
--- OUTSIDE RECORDS SUMMARY | 2024-02-29 19:33 | XMS_ITS | Encounter Summary ---
Author Organization [facility] [place] [address] Care Team Providers Care Scheduling Agent Name Role Phone Ana Gillespie APRN Primary Care Provider [phone] Encounter Details Date Type Department Care Team (Late st Contact Info) Description 09/23/2021 12:02 PM EDT Anesthesia [place] [address] Keyana Short MD [facility] [place] [address] Kyaw Yusuf CRNA [facility] [place] [address] Anesthesia Record Procedure Summary Procedure Name Responsible [...] 1131; median cubital vein (antecubital fossa), right; zzya-zac-klqlje catheter system; 20 gauge; Lilliana HWANG; tolerated [...] Procedure Summary Date: 09/23/21 Room / Location: [facility] ENDO 2 / [facility] Anesthesia Start: 1202 Anesthesia Stop: 1224 Procedure: EGD WITH BIOPSY (WRVU 2.49) (N/A Trunk) Diagnosis: Gastroesophageal reflux disease with esophagitis without hemorrhage (esophagitis - please schedule in mid August) Surgeons: David Dejesus MD Responsible Provider: Keyana Short MD Anesthesia Type: MAC ASA Status: 3 All Anesthesia Providers: Anesthesiologist: Keyana Short MD SENIOR JAVA WEB DEVELOPER: Kyaw Yusuf CRNA Vitals Value Taken Time BP 139/82 09/23/21 1310 Temp Pulse Resp 18 09/23/21 1310 SpO2 100 % 09/23/21 1315 Pain Level 0 09/23/21 1310 Vitals shown include unvalidated device data. Patient Location: PACU/[facility] Level of Consciousness: Awake and [...] BX performed by David Dejesus MD at [facility] ENDOSCOPY ??? PRO COLONOSCOPY, DIAGNOSTIC N/A 03/01/2020 COLONOSCOPY, DIAGNOSTIC performed by David Dejesus MD at [facility] END[facility]COPY ??? PRO UPPER GI ENDOSCOPY, BIOPSY N/A 04/03/2014 UPPER GASTROINTESTINAL ENDOSCOPY,WITH BIOPSY SINGLE OR MULTIPLE performed by David Dejesus MDat [facility] ??? PRO UPPER GI ENDOSCOPY, BIOPSY N/A 03/20/2016 EGD WITH BIOPSY performed by David Dejesus MD at [facility]COPY ??? PRO UPPER GI ENDOSCOPY, BIOPSY N/A 11/22/2018 EGD WITH BIOPSY (WRVU 2.49) performed by David Dejesus MD at [facility] ??? PRO UPPER GI ENDOSCOPY, BIOPSY N/A 03/01/2020 UPPER GASTROINTESTINAL ENDOSCOPY,WITH BIOPSY SINGLE OR MULTIPLE (WRVU 2.49) performed by Dvaid Dejesus MD at [facility] ??? PRO UPPER GI ENDOSCOPY, DIAGNOSTIC N/A 04/03/2014 EGD, UPPER GI ENDOSCOPY performed by David Dejesus MD at [facility] ??? PRO UPPER GI ENDOSCOPY, DIAGNOSTIC N/A 03/01/2020 EGD, UPPER GI ENDOSCOPY performed by David Dejesus MD at [facility] Social History Tobacco Use ??? Smoking [...] risks discussed with patient. Plan discussed with SENIOR JAVA WEB DEVELOPER. Anesthesia Screening documented in this encounter Plan of Treatment Upcoming Encounters Date Type Department Care Team (Late st Contact Info) Description 03/10/2024 4:00 PM EDT Office Visit Cardiology at [address] [address] Milagros Hernandez MD [facility] [address] Scheduled Procedures Name Priority Associated Diagnoses Date/Ti [...] mg documented in this encounter Care Teams Scheduling Agent Relationship Specialty Start Date End Date Ana Gillespie APRN [address] [place] [address] PCP - General Family Medicine 02/03/19 documented as of this encounter
--- OUTSIDE RECORDS SUMMARY | 2024-02-29 19:33 | XMS_ITS | Encounter Summary ---
Author Organization [facility]ly [facility] Address [facility] [place] [address] Care Team Providers Care Senior Research Consultant Name Role Phone Ana Gillespie VAUGHN Primary Care Provider Encounter Details Date Type Department Care Team (Late st Contact Info) Description 09/08/2021 Telephone [place] [address] Nicole Mariscal Social History Tobacco Use Types [...] PM EDT Office Visit Cardiology at [address] [address] Milagros Hernandez MD [facility] [place] [address] Scheduled Procedures Name Priority Associated Diagnoses Date/Ti me EGD, UPPER GI ENDOSCOPY (WRV U 2.09) Peptic stricture of esophagus documented as of this encounter Visit Diagnoses Not on filedocumented in this encounter Care Teams Senior Research Consultant Relationship Specialty Start Date End Date Ana Gillespie APRN [address] [place] [address] PCP - General Family Medicine 02/03/19 documented as of this encounter
--- OUTSIDE RECORDS SUMMARY | 2024-02-29 19:33 | XMS_ITS | Encounter Summary ---
Author Organization [facility] [place] [address] Care Team Providers Care Online User Experience Strategist Name Role Phone Ana Gillespie APRN Primary Care Provider [phone] Encounter Details Date Type Department Care Team (Late Contact Info) Description 06/25/2021 Orders Only [place] [phone] David Dejesus MD [facility] [place] [address] Gastroesophageal reflux disease with esophagitis without hemorrhage [...] PM EDT Office Visit Cardiology at [address] [phone] Milagros Hernandez MD [facility] [address] Scheduled Procedures Name Priority Associated Diagnoses Date/Ti me EGD, UPPER GI ENDOSCOPY (WRV U 2.09) Peptic stricture of esophagus documented as of this encounter Visit Diagnoses Diagnosis Gastroesophageal reflux disease with esophagitis without hemorrhage documented in this encounter Care Teams Online User Experience Strategist Relationship Specialty Start Date End Date Ana Gillespie APRN [address] [place] [address] PCP - General Family Medicine 02/03/19 documented as of this encounter
--- OUTSIDE RECORDS SUMMARY | 2024-02-29 19:33 | XMS_ITS | Encounter Summary ---
Author Organization [facility] [place] [address] Care Team Providers Care Apprentice Instrument Technician Name Role Phone Ana Gillespie VAUGHN Primary Care Provider [phone] Encounter Details Date Type Department Care Team (Late st Contact Info) Description 01/28/2022 Telephone Gastroenterology at [facility] [place] [address] Ting Patton Social History Tobacco Use Types [...] - 01/28/2022 12:14 PM EDT Jennifer Irving [id number] Diagnosis/Indication: Schedule EGD in two years Please [...] PM EDT Office Visit Cardiology at [address] [address] Milagros Hernandez MD [facility] [place] [address] Scheduled Procedures Name Priority Associated Diagnoses Date/Ti me EGD, UPPER GI ENDOSCOPY (WRV U 2.09) Peptic stricture of esophagus documented as of this encounter Visit Diagnoses Not on filedocumented in this encounter Care Teams Apprentice Instrument Technician Relationship Specialty Start Date End Date Ana Gillespie APRN [address] [place] [address] PCP - General Family Medicine 02/03/19 documented as of this encounter
--- OUTSIDE RECORDS SUMMARY | 2024-02-29 19:33 | XMS_ITS | Encounter Summary ---
Author Organization [facility] Address [facility] [place] [address] Care Team Providers Care Retail Sales Consultant Name Role Phone Ana Gillespie REHAB DIRECTOR OCCUPATIONAL THERAPIST Primary Care Provider [phone] Encounter Details Date Type Department Care Team (Late st Contact Info) Description 08/04/2021 Orders [place] [phone] David Dejesus MD [facility] [place] [address] Social History Tobacco Use Types Packs/Day Years [...] PM EDT Office Visit Cardiology at [address] [phone] Milagros Hernandez MD [facility] [place] [address] Scheduled Procedures Name Priority Associated Diagnoses Date/Ti me EGD, UPPER GI ENDOSCOPY (WRV U 2.09) Peptic stricture of esophagus documented as of this encounter Visit Diagnoses Not on filedocumented in this encounter Care Teams Retail Sales Consultant Relationship Specialty Start Date End Date Ana Gillespie APRN [address] [place] [address] PCP - General Family Medicine 02/03/19 documented as of this encounter
--- OUTSIDE RECORDS SUMMARY | 2024-02-29 19:33 | XMS_ITS | Encounter Summary ---
Author Organization [facility] [place] [address] Care Team Providers Care Oil Well Driller Name Role Phone Ana Gillespie APRN Primary Care Provider [phone] Encounter Details Date Type Department Care Team (Late st Contact Info) Description 09/09/2021 11:59 PM EDT Anesthesia [place] [phone] Bel Villanueva MD [facility] [place] [address] Parris Steinberg CRNA [facility] [place] [address] Anesthesia Record Procedure Summary Procedure Name Responsible [...] MD at [facility] ENDOSCOPY ??? PRO COLONOSCOPY, DIAGNOSTIC N/A 03/01/2020 COLONOSCOPY, DIAGNOSTIC performed by David Dejesus MD at [facility] ENDOSCOPY ??? PRO UPPER GI ENDOSCOPY, BIOPSY N/A 04/03/2014 UPPER GASTROINTESTINAL ENDOSCOPY,WITH BIOPSY SINGLE OR MULTIPLE performed by David Dejesus MDat [facility] ENDOSCOPY ??? PRO UPPER GI ENDOSCOPY, BIOPSY N/A 03/20/2016 EGD WITH BIOPSY performed by David Dejesus MD at [facility] ENDOSCOPY ??? PRO UPPER GI ENDOSCOPY, BIOPSY N/A 11/22/2018 EGD WITH BIOPSY (WRVU 2.49) performed by David Dejesus MD at [facility] ENDOSCOPY ??? PRO UPPER GI ENDOSCOPY, BIOPSY N/A 03/01/2020 UPPER GASTROINTESTINAL ENDOSCOPY,WITH BIOPSY SINGLE OR MULTIPLE (WRVU 2.49) performed by David Dejesus MD at [facility] ENDOSCOPY ??? PRO UPPER GI ENDOSCOPY, DIAGNOSTIC N/A 04/03/2014 EGD, UPPER GI ENDOSCOPY performed by David Dejesus MD at [facility] ENDOSCOPY ??? PRO UPPER GI ENDOSCOPY, DIAGNOSTIC N/A 03/01/2020 EGD, UPPER GI ENDOSCOPY performed by David Dejesus MD at [facility] ENDOSCOPY Social History Tobacco Use ??? [...] risks discussed with patient. Plan discussed with POTTERY DECORATION DESIGNER. Anesthesia Screening documented in this encounter Plan of Treatment Upcoming Encounters Date Type Department Care Team (Late st Contact Info) Description 03/10/2024 4:00 PM EDT Office Visit Cardiology at [address] [address] Milagros Hernandez MD [facility] [place] [address] Scheduled Procedures Name Priority Associated Diagnoses Date/Ti me EGD, UPPER GI ENDOSCOPY (WRV U 2.09) Peptic stricture of esophagus documented as of this encounter Visit Diagnoses Not on filedocumented in this encounter Care Teams Oil Well Driller Relationship Specialty Start Date End Date Ana Gillespie APRN [address] [place] [address] PCP - General Family Medicine 02/03/19 documented as of this encounter
--- OUTSIDE RECORDS SUMMARY | 2024-02-29 19:33 | XMS_ITS | Encounter Summary ---
Author Organization [facility] Address [facility] [place] [address] Care Team Providers Care Steamboat Pilot Name Role Phone Ana Gillespie VAUGHN Primary Care Provider [phone] Encounter Details Date Type Department Care Team (Latest Contact Info) Description 09/23/2021 11:01 AM EDT - 09/23/2021 1:32 PM EDT Hospital Encounter [place] [address] David Dejesus MD [facility] [place] [address] Discharge Disposition: Home Social History Tobacco Use [...] the day after the procedure, use an obdg-irz-rbzzsuy spray to numb your throat. Sucking on [...] occurs, please contact your Doctor. Please call [phone] before 8pm Mon-Fri with problems, questions or concerns. If you call after 8pm or on weekends, call the Hospital at [phone] and ask to speak to the Residential Construction Instructor inspector packer glass container and the fulling machine operator will contact that person for you. When should you call for help? Call [phone] anytime you think you may need emergency [...] problems. Where can you learn more? [facility] View your After Visit Summary [...] cost to you. Content Version: 12.2 ?? 7164-1817 [employer]. Care instructions adapted under license by [facility]. If you have questions about a medical condition or this instruction, always ask your healthcare professional. [employer] disclaims any warranty or liability for [...] kit. 1 each 0 12/14/2014 Insulin [place], Disposable, (BD INSULIN PEN NEEDLE UF MINI) [...] 2 times daily. ??? Blood Sugar Diagnostic (ElevaateUCH ULTRA TEST) Strip 1 each by Other [...] for dosing. 15 mL 11 ??? Insulin [place], Disposable, (BD INSULIN PEN NEEDLE UF MINI) 31 x 3/16 Needle 1 Device by [facility].(Non-Drug; Combo Route) route [...] PM EDT Office Visit Cardiology at [address] [address] Milagros Hernandez MD [facility] [place] [address] Scheduled Procedures Name Priority Associated Diagnoses Date/Ti ga EGD, UPPER GI ENDOSCOPY (WRV U 2.09) Peptic stricture of esophagus documented as of this encounter Procedures Procedure Name Priority Date/Time Associated Diagnosis Comments SURGICAL PATHOLOGY REPORT Routine 09/23/2021 12:24 PM EDT SPECIMEN TO PATHOLOGY Routine 09/23/2021 12:24 PM EDT SPECIMEN TO PATHOLOGY Routine 09/23/2021 12:24 PM EDT Upper Gi Endoscopy, Biopsy ([id number]) 09/23/2021 12:02 PM EDT Gastroesophageal reflux disease with esophagitis without hemorrhage UPPER GI ENDOSCOPY Routine 09/23/2021 11 :52 AM EDT documented in this encounter Results * Surgical Pathology Report (09/23/2021 12:24 PM EDT) Final Diagnosis [id number] ? Location: 4; [facility]; A The signing pathologist has (i) [...] MD Verified: ??09/26/2021 19:44 ??Pathologist Performed at: ??-[facility] [place], [place], [place] SPECIMEN(S) SUBMITTED A - Distal esophagus [...] labeled B1-B2. ??shb 09/26/2021 7:44 PM EDT [facility] GI Biopsy 09/23/2021 12:2 4 PM EDT 09/23/2021 12:24 PM EDT GI Biopsy 09/23/2021 12:2 4 PM EDT 09/23/2021 12:24 PM EDT David Dejesus MD PATHOLOGY/CYTOLOGY ORDERABLES Performing Organization Address City/[facility]/ZIP Co de Phone Number [facility] [place] [address] * Specimen to Pathology (09/23/2021 12:24 PM EDT) AP Specimen 09/23/2021 12:2 4 PM EDT 09/23/2021 12:24 PM EDT Narrative [facility] - 09/23/2021 12:24 PM EDT Specimen requisition ordered. ??Separate Pathology report to follow David Dejesus MD PATHOLOGY/CYTOLOGY ORDERABLES Performing Organization Address City/[facility]/ZIP Co de Phone Number [facility] [place] [address] * Specimen to Pathology (09/23/2021 12:24 PM EDT) AP Specimen 09/23/2021 12:2 4 PM EDT 09/23/2021 12:24 PM EDT Narrative [facility] - 09/23/2021 12:24 PM EDT Specimen requisition ordered. ??Separate Pathology report to follow David Dejesus MD PATHOLOGY/CYTOLOGY ORDERABLES Performing Organization Address City/[facility]/ZIP Co de Phone Number [facility] [place] [address] * UPPER GI ENDOSCOPY (09/23/2021 11:52 AM EDT) Pathologist [facility] UPPER GI ENDOSCOPY [facility] Endoscopy Procedure Date: 09/23/2021 11:52 AM ? Patient Name: Jennifer Irving ? Date of : 1960 ? Age: 61 ? Order #: [id number] ? Instrument Name: [id number] ? Procedure: ? Upper GI endoscopy Indications: ? Heartburn Providers: ? David Dejesus MD, Neej J. ? [address], ? Theodora Farrell, Piece Work Checker Referring MD: ?Ana Keith: ? Monitored Anesthesia [...] 09/23/2021 11:5 2 AM EDT Ana Gillespie MAILING JOGGER GENERAL SURGICAL ORD ERABLES PROVATION documented in [...] RN) documented in this encounter Care Teams Steamboat Pilot Relationship Specialty Start Date End Date Ana Gillespie APRN [address] [place] [address] PCP - General Family Medicine 02/03/19 documented as of this encounter
--- OUTSIDE RECORDS SUMMARY | 2024-02-29 19:33 | XMS_ITS | Encounter Summary ---
Author Organization [facility] [place] [address] Care Team Providers Care Applications Programmer Name Role Phone Ana Gillespie VAUGHN Primary Care Provider [phone] Encounter Details Date Type Department Care Team (Late st Contact Info) Description 07/07/2021 Telephone [place] [phone] Ting Patton Social History Tobacco Use Types [...] PM EDT Office Visit Cardiology at [address] [phone] Milagros Hernandez MD [facility] [place] [address] Scheduled Procedures Name Priority Associated Diagnoses Date/Ti me EGD, UPPER GI ENDOSCOPY (WRV U 2.09) Peptic stricture of esophagus documented as of this encounter Visit Diagnoses Not on filedocumented in this encounter Care Teams Applications Programmer Relationship Specialty Start Date End Date Ana Gillespie APRN [address] [place] [address] PCP - General Family Medicine 02/03/19 documented as of this encounter
--- OUTSIDE RECORDS SUMMARY | 2024-02-29 19:33 | XMS_ITS | Encounter Summary ---
Author Organization [facility] Address [facility] [place] [address] Care Team Providers Care Environmental Health And Safety Manager Name Role Phone Ana Gillespie APRN Primary Care Provider [phone] Encounter Details Date Type Department Care Team (Late st Contact Info) Description 01/27/2022 11:59 PM EDT Anesthesia Event [place] [phone] Violet Miguel MD [facility] [place] [address] Anesthesia Record Procedure Summary Procedure Name Responsible [...] 5 years - MAC without issue Plan BRODY Miguel MD 01/26/2022 Regional Project Manager Pager #[phone] Informed Consent: Anesthesia Screening documented in this encounter Plan of Treatment Upcoming Encounters Date Type Department Care Team (Late st Contact Info) Description 03/10/2024 4:00 PM EDT Office Visit Cardiology at [address] [address] Milagros Hernandez MD [facility] [place] [address] Scheduled Procedures Name Priority Associated Diagnoses Date/Ti me EGD, UPPER GI ENDOSCOPY (WRV U 2.09) Peptic stricture of esophagus documented as of this encounter Visit Diagnoses Not on filedocumented in this encounter Care Teams Environmental Health And Safety Manager Relationship Specialty Start Date End Date Ana Gillespie APRN [address] [place] [address] PCP - General Family Medicine 02/03/19 documented as of this encounter
--- OUTSIDE RECORDS SUMMARY | 2024-02-29 19:33 | XMS_ITS | Encounter Summary ---
Author Organization [facility] Address [facility] [place] [address] Care Team Providers Care C 13 Catapult Operator Name Role Phone Ana Gillespie VAUGHN Primary Care Provider [phone] Encounter Details Date Type Department Care Team (Late st Contact Info) Description 03/01/2020 8:30 AM EDT - 03/01/2020 9:30 AM EDT Surgery Gastroenterology at [facility] [place] [address] David Dejesus MD [facility] [place] [address] EGD, UPPER GI ENDOSCOPY (WRVU 2.09) Social [...] the day after the procedure, use an gerr-ejp-uswjpdl spray to numb your throat. Sucking on [...] occurs, please contact your Doctor. Please call [phone] before 8pm Mon-Fri with problems, questions or concerns. If you call after 8pm or on weekends, call the Hospital at [phone] and ask to speak to the Residency Coordinator marketing operations specialist and the heavy machinery operator will contact that person for you. When should you call for help? Call [phone] anytime you think you may need emergency [...] problems. Where can you learn more? [facility] View your After Visit Summary and more online at [email or web address] If you would like to provide feedback [...] cost to you. Content Version: 12.2 ?? [id number] [employer]. Care instructions adapted under license by [facility]. If you have questions about a medical condition or this instruction, always ask your healthcare professional. [employer] disclaims any warranty or liability for your [...] occurs, please contact your Doctor. Please call [phone] before 8pm Mon-Fri with problems, questions or concerns. If you call after 8pm or on weekends, call the Hospital at [phone] and ask to speak to the Residency Coordinator marketing operations specialist and the heavy machinery operator will contact that person for you. When should you call for help? Call [phone] anytime you think you may need emergency [...] problems. Where can you learn more? [facility] View your After Visit Summary and more online at [email or web address] If you would like to provide feedback [...] cost to you. Content Version: 12.2 ?? 0352-4587 [employer]. Care instructions adapted under license by [facility]. If you have questions about a medical condition or this instruction, always ask your healthcare professional. [employer] disclaims any warranty or liability for your [...] meter kit. 1 each 0 12/14/2014 Insulin [place], Disposable, (BD INSULIN PEN NEEDLE UF MINI) [...] meter kit. 1 each 0 ??? Insulin [place], Disposable, (BD INSULIN PEN NEEDLE UF MINI) [...] PM EDT Office Visit Cardiology at [address] [address] Milagros Hernandez MD [facility] [place] [address] Scheduled Procedures Name Priority Associated Diagnoses Date/Ti [...] 8:42 AM EDT Upper Gi Endoscopy, Biopsy ([id number]) 03/01/2020 8:36 AM EDT needs egd/colonoscopy for GERD and screening colo rojelio Colonoscopy, Diagnostic ([id number]) 03/01/2020 8:36 AM EDT needs egd/colonoscopy for GERD and screening colo rojelio Upper GI Endoscopy, Diagnostic ([id number]) 03/01/2020 8:36 AM EDT needs egd/colonoscopy for GERD and screening colo rojelio UPPER GI ENDOSCOPY Routine 03/01/2020 7: 47 AM EDT COLONOSCOPY Routine 03/01/2020 7:22 AM EDT documented in this encounter Results * Surgical Pathology Report (03/01/2020 8:42 AM EDT) Final Diagnosis [id number] ? Location: 4T; EA06; A The signing [...] Hill MD Verified: ??03/10/2020 ?Pathologist Performed at: ??-[facility] Dept. of Pathology, [place], [place] SPECIMEN(S) SUBMITTED A - 28 cm, [...] cassette labeled D1. ??sns 03/10/2020 12:01 PM [facility] GI Biopsy 03/01/2020 8:42 AM EDT 03/01/2020 8:42 AM EDT GI Biopsy 03/01/2020 8:42 AM EDT 03/01/2020 8:42 AM EDT GI Biopsy 03/01/2020 8:42 AM EDT 03/01/2020 8:42 AM EDT GI Biopsy 03/01/2020 8:42 AM EDT 03/01/2020 8:42 AM EDT David Dejesus MD PATHOLOGY/[place] [address] * Specimen to Pathology (03/01/2020 8:42 AM EDT) AP Specimen 03/01/2020 8:42 AM EDT 03/01/2020 8:42 AM EDT Narrative [facility] - 03/01/2020 8:42 AM EDT Specimen requisition ordered. ??Separate Pathology report to follow David Dejesus MD PATHOLOGY/CYTOLOGY ORDERABLES Performing Organization Address City/[facility]/[place] [address] * Specimen to Pathology (03/01/2020 8:42 AM EDT) AP Specimen 03/01/2020 8:42 AM EDT 03/01/2020 8:42 AM EDT Narrative [facility] - 03/01/2020 8:42 AM EDT Specimen requisition ordered. ??Separate Pathology report to follow David Dejesus MD PATHOLOGY/CYTOLOGY ORDERABLES Performing Organization Address City/[facility]/[place] [address] * Specimen to Pathology (03/01/2020 8:42 AM EDT) AP Specimen 03/01/2020 8:42 AM EDT 03/01/2020 8:42 AM EDT Narrative [facility] - 03/01/2020 8:42 AM EDT Specimen requisition ordered. ??Separate Pathology report to follow David Dejesus MD PATHOLOGY/CYTOLOGY ORDERABLES Performing Organization Address City/[facility]/[place] [address] * Specimen to Pathology (03/01/2020 8:42 AM EDT) AP Specimen 03/01/2020 8:42 AM EDT 03/01/2020 8:42 AM EDT Narrative [facility] - 03/01/2020 8:42 AM EDT Specimen requisition ordered. ??Separate Pathology report to follow David Dejesus MD PATHOLOGY/CYTOLOGY ORDERABLES Performing Organization Address [facility]/State/ZIP Co de Phone Number [facility] [place] [address] * UPPER GI ENDOSCOPY (03/01/2020 7:47 AM EDT) UPPER GI ENDOSCOPY [facility] Endoscopy Procedure Date: 03/01/2020 7:47 AM ? Patient Name: Jennifer Irving ? N: [id number] ? Date of : 1960 ? Age: 59 ? Order #: [id number] ? Instrument Name: [id number] ? Procedure: ? Upper GI endoscopy Indications: [...] See Anesthesia documentation Impression: ?- Long segments [place]'s esophagus ? without worrisome features - biopsied [...] * COLONOSCOPY (03/01/2020 7:22 AM EDT) COLONOSCOPY [facility] Endoscopy Procedure Date: 03/01/2020 7:22 AM ? Patient Name: Jennifer Irving ? Date of : 1960 ? Age: 59 ? Order #: [id number] ? Instrument Name: [id number] ? Procedure: ? Colonoscopy Indications: ? Screening [...] CRNA) documented in this encounter Care Teams C 13 Catapult Operator Relationship Specialty Start Date End Date Ana Gillespie APRN [address] [place] [address] PCP - General Family Medicine 02/03/19 documented as of this encounter
--- OUTSIDE RECORDS SUMMARY | 2024-02-29 19:33 | XMS_ITS | Encounter Summary ---
Author Organization [facility] Address [facility] [place] [address] Care Team Providers Care Insulation Packer Name Role Phone Ana Gillespie VAUGHN Primary Care Provider Encounter Details Date Type Department Care Team (Latest Contact Info) Description 03/01/2020 6:57 AM EDT - 03/01/2020 10:26 AM EDT Hospital Encounter Gastroenterology at [facility] [place] [address] David Dejesus MD [facility] [place] [address] Discharge Disposition: Home Social History Tobacco Use [...] the day after the procedure, use an rdmc-awn-qyrpfyn spray to numb your throat. Sucking on [...] occurs, please contact your Doctor. Please call [phone] before 8pm Mon-Fri with problems, questions or concerns. If you call after 8pm or on weekends, call the Hospital at [phone] and ask to speak to the Conference Services Director section chief and the coal briquette machine operator will contact that person for [...] any problems. Where can you learn more? [facility] View your After Visit Summary and more online at [email or web address] If you would like to provide feedback about your hospital experience, please call the Office of Patient and Family Relations at . If you have received this After Visit Summary in error, please immediately return it in person to the department, or notify the [facility] Privacy Office by calling toll free at between the hours of 8AM and 5PM to arrange for our retrieval of the documents at no cost to you. Content Version: 12.2 ?? [phone] [employer] ([employer] Care instructions adapted under license by [facility]. If you have questions about a medical condition or this instruction, always ask your healthcare professional. [employer] disclaims any warranty or liability for your [...] occurs, please contact your Doctor. Please call [phone] before 8pm Mon-Fri with problems, questions or concerns. If you call after 8pm or on weekends, call the Hospital at [phone] and ask to speak to the Conference Services Director section chief and the coal briquette machine operator will contact that person for you. When should you call for help? Call 102 anytime you think you may need emergency [...] any problems. Where can you learn more? [facility] View your After Visit Summary and more online at [email or web address] If you would like to provide feedback [...] cost to you. Content Version: 12.2 ?? 9014-3980 [employer] ([employer]). Care instructions adapted under license by [facility]. If you have questions about a medical condition or this instruction, always ask your healthcare professional. [employer]) disclaims any warranty or liability for your [...] meter kit. 1 each 0 12/14/2014 Insulin [place], Disposable, (BD INSULIN PEN NEEDLE UF MINI) 31 x 3/16 NeedleIndications:Di abetes mellitus type 2, uncontrolled 1 Device by [facility] [place] [place].(Non-Drug; Combo Route) route 3 times daily as [...] by mouth daily. ??? Blood Sugar Diagnostic ([employer] ULTRA TEST) Strip 1 each by Other [...] meter kit. 1 each 0 ??? Insulin [place], Disposable, (BD INSULIN PEN NEEDLE UF MINI) 31 x 3/16 Needle 1 Device by [facility] [place] [place].(Non-Drug; Combo Route) route 3 times daily as [...] PM EDT Office Visit Cardiology at [address] [address] Milagros Hernandez MD [facility] [place] [address] Scheduled Procedures Name Priority Associated Diagnoses Date/Ti [...] 8:42 AM EDT Upper Gi Endoscopy, Biopsy (52136) 03/01/2020 8:36 AM EDT needs egd/colonoscopy for GERD and screening colo rojelio Colonoscopy, Diagnostic (47422) 03/01/2020 8:36 AM EDT needs egd/colonoscopy for GERD and screening colo rojelio Upper GI Endoscopy, Diagnostic (80150) 03/01/2020 8:36 AM EDT needs egd/colonoscopy for GERD and screening colo rojelio UPPER GI ENDOSCOPY Routine 03/01/2020 7: 47 AM EDT COLONOSCOPY Routine 03/01/2020 7:22 AM EDT documented in this encounter Results * Surgical Pathology Report (03/01/2020 8:42 AM EDT) Final Diagnosis [id number] ? Location: 4T; EA06; A The signing [...] Hill MD Verified: ??03/10/2020 ?Pathologist Performed at: ??-[facility] [place] Dept. of [place]ology, [place], [place] SPECIMEN(S) SUBMITTED A - 28 cm, [...] cassette labeled D1. ??sns 03/10/2020 12:01 PM [facility] GI Biopsy 03/01/2020 8:42 AM EDT 03/01/2020 8:42 AM EDT GI Biopsy 03/01/2020 8:42 AM EDT 03/01/2020 8:42 AM EDT GI Biopsy 03/01/2020 8:42 AM EDT 03/01/2020 8:42 AM EDT GI Biopsy 03/01/2020 8:42 AM EDT 03/01/2020 8:42 AM EDT David Dejesus MD PATHOLOGY/[place] [address] * Specimen to Pathology (03/01/2020 8:42 AM EDT) AP Specimen 03/01/2020 8:42 AM EDT 03/01/2020 8:42 AM EDT Narrative [facility] - 03/01/2020 8:42 AM EDT Specimen requisition ordered. ??Separate Pathology report to follow David Dejesus MD PATHOLOGY/[place] [address] * Specimen to Pathology (03/01/2020 8:42 AM EDT) AP Specimen 03/01/2020 8:42 AM EDT 03/01/2020 8:42 AM EDT Narrative [facility] - 03/01/2020 8:42 AM EDT Specimen requisition ordered. ??Separate Pathology report to follow David Dejesus MD PATHOLOGY/CYTOLOGY ORDERABLES Performing Organization Address City/[facility]/[place] [address] * Specimen to Pathology (03/01/2020 8:42 AM EDT) AP Specimen 03/01/2020 8:42 AM EDT 03/01/2020 8:42 AM EDT Narrative [facility] - 03/01/2020 8:42 AM EDT Specimen requisition ordered. ??Separate Pathology report to follow David Dejesus MD PATHOLOGY/CYTOLOGY ORDERABLES Performing Organization Address City/[facility]/[place] [address] * Specimen to Pathology (03/01/2020 8:42 AM EDT) AP Specimen 03/01/2020 8:42 AM EDT 03/01/2020 8:42 AM EDT Narrative [facility] - 03/01/2020 8:42 AM EDT Specimen requisition ordered. ??Separate Pathology report to follow David Dejesus MD PATHOLOGY/CYTOLOGY ORDERABLES Performing Organization Address [facility]/ZIP Co de Phone Number [facility] [place] [address] * UPPER GI ENDOSCOPY (03/01/2020 7:47 AM EDT) UPPER GI ENDOSCOPY [facility] Procedure Date: 03/01/2020 7:47 AM ? Patient Name: Jennifer Irving ? Date of : 1960 ? Age: 59 ? Order #: [id number] ? Instrument Name: [id number] ? Procedure: ? Upper GI endoscopy Indications: [...] * COLONOSCOPY (03/01/2020 7:22 AM EDT) COLONOSCOPY [facility] Procedure Date: 03/01/2020 7:22 AM ? Patient Name: Jennifer Irving ? Date of : 1960 ? Age: 59 ? Order #: [id number] ? Instrument Name: [id number] ? Procedure: ? Colonoscopy Indications: ? Screening [...] CRNA) documented in this encounter Care Teams Insulation Packer Relationship Specialty Start Date End Date Ana Gillespie APRN [address] [place] [address] PCP - General Family Medicine 02/03/19 documented as of this encounter
--- OUTSIDE RECORDS SUMMARY | 2024-02-29 19:33 | XMS_ITS | Encounter Summary ---
Author Organization [facility] [place] [place] [address] Care Team Providers Care It Service Delivery Manager Name Role Phone Ana Gillespie VAUGHN Primary Care Provider [phone] Encounter Details Date Type Department Care Team (Late Contact Info) Description 10/21/2021 Telephone [place] [address] Chiquita James, RN Social History [...] PM EDT Office Visit Cardiology at [address] [phone] Milagros Hernandez MD [facility] [place] [address] Scheduled Procedures Name Priority Associated Diagnoses Date/Ti me EGD, UPPER GI ENDOSCOPY (WRV U 2.09) Peptic stricture of esophagus documented as of this encounter Visit Diagnoses Not on filedocumented in this encounter Care Teams It Service Delivery Manager Relationship Specialty Start Date End Date Ana Gillespie APRN [address] [place] [address] PCP - General Family Medicine 02/03/19 documented as of this encounter
--- OUTSIDE RECORDS SUMMARY | 2024-02-29 19:33 | XMS_ITS | Encounter Summary ---
Author Organization [facility] Address [facility] [place] [address] Care Team Providers Care Siding Applicator Name Role Phone Ana Gillespie APRN Primary Care Provider [phone] Encounter Details Date Type Department Care Team (Late st Contact Info) Description 11/27/2021 Telephone [place] [phone] Alla Mejia Social History Tobacco Use Types [...] PM EDT Office Visit Cardiology at [address] [phone] Milagros Hernandez MD [facility] [place] [address] Scheduled Procedures Name Priority Associated Diagnoses Date/Ti me EGD, UPPER GI ENDOSCOPY (WRV U 2.09) Peptic stricture of esophagus documented as of this encounter Visit Diagnoses Not on filedocumented in this encounter Care Teams Siding Applicator Relationship Specialty Start Date End Date Ana Gillespie APRN [address] [place] [address] PCP - General Family Medicine 02/03/19 documented as of this encounter
--- OUTSIDE RECORDS SUMMARY | 2024-02-29 19:33 | XMS_ITS | Encounter Summary ---
Author Organization [facility] [place] [address] Care Team Providers Care Wrapper Stemmer Hand Name Role Phone Ana Gillespie VAUGHN Primary Care Provider [phone] Encounter Details Date Type Department Care Team (Late st Contact Info) Description 11/24/2021 Telephone [place] [address] Chiquita James, RN Social History [...] PM EDT Office Visit Cardiology at [address] [phone] Milagros Hernandez MD [facility] [place] [address] Scheduled Procedures Name Priority Associated Diagnoses Date/Ti me EGD, UPPER GI ENDOSCOPY (WRV U 2.09) Peptic stricture of esophagus documented as of this encounter Visit Diagnoses Not on filedocumented in this encounter Care Teams Wrapper Stemmer Hand Relationship Specialty Start Date End Date Ana Gillespie APRN [address] [place] [address] PCP - General Family Medicine 02/03/19 documented as of this encounter
--- OUTSIDE RECORDS SUMMARY | 2024-02-29 19:33 | XMS_ITS | Encounter Summary ---
Author Organization [facility] [place] [address] Care Team Providers Care Air Quality Specialist Name Role Phone Ana Gillespie VAUGHN Primary Care Provider [phone] Reason for Visit * Reason Onset Date Comments Appointment 11/28/2020 Encounter Details Date Type Department Care Team (Late st Contact Info) Description 11/28/2020 Telephone [place] [phone] Evelin Novak I Appointment Social History Tobacco [...] PM EDT Office Visit Cardiology at [address] [phone] Milagros Hernandez MD [facility] [place] [address] Scheduled Procedures Name Priority Associated Diagnoses Date/Ti me EGD, UPPER GI ENDOSCOPY (WRV U 2.09) Peptic stricture of esophagus documented as of this encounter Visit Diagnoses Not on filedocumented in this encounter Care Teams Air Quality Specialist Relationship Specialty Start Date End Date Ana Gillespie APRN [address] [place] [address] PCP - General Family Medicine 02/03/19 documented as of this encounter
--- OUTSIDE RECORDS SUMMARY | 2024-02-29 19:33 | XMS_ITS | Encounter Summary ---
Author Organization [facility] Address [facility] [place] [address] Care Team Providers Care Building Repair Maintenance Supervisor Name Role Phone Ana Gillespie APRN Primary Care Provider [phone] Encounter Details Date Type Department Care Team (Late st Contact Info) Description 11/25/2021 Telephone [place] [phone] Alla Mejia Social History Tobacco Use Types [...] PM EDT Office Visit Cardiology at [address] [phone] Milagros Henrandez MD [facility] [place] [address] Scheduled Procedures Name Priority Associated Diagnoses Date/Ti me EGD, UPPER GI ENDOSCOPY (WRV U 2.09) Peptic stricture of esophagus documented as of this encounter Visit Diagnoses Not on filedocumented in this encounter Care Teams Building Repair Maintenance Supervisor Relationship Specialty Start Date End Date Ana Gillespie APRN [address] [place] [address] PCP - General Family Medicine 02/03/19 documented as of this encounter
--- OUTSIDE RECORDS SUMMARY | 2024-02-29 19:33 | XMS_ITS | Encounter Summary ---
Author Organization [facility] Address [facility] [place] [address] Care Team Providers Care Children Teacher Name Role Phone Ana Gillespie APRN Primary Care Provider [phone] Encounter Details Date Type Department Care Team (Late st Contact Info) Description 03/01/2020 8:32 AM EDT Anesthesia [place] [phone] Ute Novak MD [facility] [place] [address] Anesthesia Record Procedure Summary Procedure Name Responsible [...] 0723; metacarpal vein (top of hand), right; snhx-wuk-zalmpg catheter system; 20 gauge; gaurav rn; distraction, [...] Procedure Summary Date: 03/01/20 Room / Location: [facility] ENDO 2 / [facility] Anesthesia Start: 831 Anesthesia Stop: 923 Procedures: EGD, UPPER GI ENDOSCOPY (N/A Trunk) COLONOSCOPY, DIAGNOSTIC (N/A Trunk) UPPER GASTROINTESTINAL ENDOSCOPY,WITH BIOPSY SINGLE OR MULTIPLE (WRVU 2.49) (N/A Esophagus) Diagnosis: (needs egd/colonoscopy for GERD and screening colo rojelio) Surgeon: David Dejesus MD Responsible Provider: Ute Novak MD Anesthesia Type: MAC ASA Status: 3 All Anesthesia Providers: Anesthesiologist: Ute Novak MD TRUCK BRACER: Chiquita Felix CRNA Vitals Value Taken Time BP 170/68 03/01/20 1001 Temp Pulse Resp 16 03/01/20 1000 SpO2 99 % 03/01/20 1008 Pain Level 0 03/01/20 1000 Vitals shown include unvalidated device data. Patient Location: PACU/[facility] Level of Consciousness: Awake and Alert Pain [...] BX performed by David Dejesus MD at [facility] ENDOSCOPY ??? PRO UPPER GI ENDOSCOPY, BIOPSY N/A 04/03/2014 UPPER GASTROINTESTINAL ENDOSCOPY,WITH BIOPSY SINGLE OR MULTIPLE performed by David Dejesus MDat [facility] ??? PRO UPPER GI ENDOSCOPY, BIOPSY N/A 03/20/2016 EGD WITH BIOPSY performed by David Dejesus MD at [facility] END[facility]COPY ??? PRO UPPER GI ENDOSCOPY, BIOPSY N/A 11/22/2018 EGD WITH BIOPSY (WRVU 2.49) performed by David Dejesus MD at [facility] ??? PRO UPPER GI ENDOSCOPY, DIAGNOSTIC N/A 04/03/2014 EGD, UPPER GI ENDOSCOPY performed by David Dejesus MD at [facility] Social History Tobacco Use ??? [...] risks discussed with patient. Plan discussed with TRUCK BRACER and attending. PAT Clinic Note documented in this encounter Plan of Treatment Upcoming Encounters Date Type Department Care Team (Late st Contact Info) Description 03/10/2024 4:00 PM EDT Office Visit Cardiology at [address] [phone] Milagros Hernandez MD [facility] [place] [address] Scheduled Procedures Name Priority Associated Diagnoses Date/Ti [...] mL/hr documented in this encounter Care Teams Children Teacher Relationship Specialty Start Date End Date Ana Gillespie APRN [address] [place] [address] PCP - General Family Medicine 02/03/19 documented as of this encounter
--- OUTSIDE RECORDS SUMMARY | 2024-02-29 19:33 | XMS_ITS | Encounter Summary ---
Author Organization [facility] [place] [address] Care Team Providers Care Last Puller Name Role Phone Ana Gillespie APRN Primary Care Provider [phone] Reason for Visit * Reason Onset Date Comments Medication Refill 07/15/2021 Encounter Details Date Type Department Care Team (Late st Contact Info) Description 07/15/2021 Ref[place] [phone] David Dejesus MD [facility] [place] [address] Gastroesophageal reflux disease with esophagitis without hemorrhage [...] PM EDT Office Visit Cardiology at [address] [phone] Milagros Hernandez MD [facility] [place] [address] Scheduled Procedures Name Priority Associated Diagnoses Date/Ti me EGD, UPPER GI ENDOSCOPY (WRV U 2.09) Peptic stricture of esophagus documented as of this encounter Visit Diagnoses Diagnosis Gastroesophageal reflux disease with esophagitis without hemorrhage documented in this encounter Care Teams Last Puller Relationship Specialty Start Date End Date Ana Gillespie APRN [address] [place] [address] PCP - General Family Medicine 02/03/19 documented as of this encounter
--- OUTSIDE RECORDS SUMMARY | 2024-02-29 19:33 | XMS_ITS | Encounter Summary ---
[place] [address] Care Team Providers Care Banking Assistant Name Role Phone Ana Gillespie VAUGHN Primary Care Provider [phone] Encounter Details Date Type Department Care Team (Late st Contact Info) Description 07/18/2021 Telephone [place] [address] Chiquita James, RN Social History [...] PM EDT Office Visit Cardiology at [address] [phone] Milagros Hernandez MD [facility] [place] [address] Scheduled Procedures Name Priority Associated Diagnoses Date/Ti me EGD, UPPER GI ENDOSCOPY (WRV U 2.09) Peptic stricture of esophagus documented as of this encounter Visit Diagnoses Not on filedocumented in this encounter Care Teams Banking Assistant Relationship Specialty Start Date End Date Ana Gillespie APRN [address] [place] [address] PCP - General Family Medicine 02/03/19 documented as of this encounter
--- OUTSIDE RECORDS SUMMARY | 2024-02-29 19:33 | XMS_ITS | Encounter Summary ---
Author Organization [facility] [place] [address] Care Team Providers Care Impregnator Helper Name Role Phone Ana Gillespie APRN Primary Care Provider Encounter Details Date Type Department Care Team (Late Contact Info) Description 10/27/2021 Orders [place] [phone] David Dejesus MD [facility] [place] [address] Gastroesophageal reflux disease with esophagitis without hemorrhage [...] PM EDT Office Visit Cardiology at [address] [phone] Milagros Hernandez MD [facility] [place] [address] Scheduled Procedures Name Priority Associated Diagnoses Date/Ti me EGD, UPPER GI ENDOSCOPY (WRV U 2.09) Peptic stricture of esophagus documented as of this encounter Visit Diagnoses Diagnosis Gastroesophageal reflux disease with esophagitis without hemorrhage documented in this encounter Care Teams Impregnator Helper Relationship Specialty Start Date End Date Ana Gillespie APRN [address] [place] [address] PCP - General Family Medicine 02/03/19 documented as of this encounter
--- OUTSIDE RECORDS SUMMARY | 2024-02-29 19:33 | XMS_ITS | Encounter Summary ---
Author Organization [facility] [place] [place] [address] Care Team Providers Care Energy And Conservation Technician Name Role Phone Ana Gillespie VAUGHN Primary Care Provider [phone] Encounter Details Date Type Department Care Team (Late st Contact Info) Description 09/10/2021 Telephone [place] [address] Chiquita James, RN Social History [...] PM EDT Office Visit Cardiology at [address] [phone] Milagros Hernandez MD [facility] [place] [address] Scheduled Procedures Name Priority Associated Diagnoses Date/Ti me EGD, UPPER GI ENDOSCOPY (WRV U 2.09) Peptic stricture of esophagus documented as of this encounter Visit Diagnoses Not on filedocumented in this encounter Care Teams Energy And Conservation Technician Relationship Specialty Start Date End Date Ana Gillespie APRN [address] [place] [address] PCP - General Family Medicine 02/03/19 documented as of this encounter
--- OUTSIDE RECORDS SUMMARY | 2024-02-29 19:33 | XMS_ITS | Encounter Summary ---
Author Organization [facility] [place] [address] Care Team Providers Care House Player Name Role Phone Ana Gillespie APRN Primary Care Provider Reason for Visit * Reason Onset Date Comments Medication Refill 10/20/2021 Encounter Details Date Type Department Care Team (Late st Contact Info) Description 10/20/2021 [place] [phone] David Dejesus MD [facility] [place] [address] Gastroesophageal reflux disease with esophagitis without hemorrhage [...] PM EDT Office Visit Cardiology at [address] [phone] Milagros Hernandez MD [facility] [place] [address] Scheduled Procedures Name Priority Associated Diagnoses Date/Ti me EGD, UPPER GI ENDOSCOPY (WRV U 2.09) Peptic stricture of esophagus documented as of this encounter Visit Diagnoses Diagnosis Gastroesophageal reflux disease with esophagitis without hemorrhage documented in this encounter Care Teams House Player Relationship Specialty Start Date End Date Ana Gillespie APRN [address] [place] [address] PCP - General Family Medicine 02/03/19 documented as of this encounter
--- OUTSIDE RECORDS SUMMARY | 2024-02-29 19:34 | XMS_ITS | Encounter Summary ---
Author Organization [facility] [place] [place] [address] Care Team Providers Care Jigsawyer Name Role Phone David [place] MD Primary Care Provider [phone] Encounter Details Date Type Department Care Team (Late Contact Info) Description 07/06/2017 Tele[place] [phone] Ami Chao RN Social History Tobacco Use [...] personal issue. Call returned to Jennifer at [phone]. Spoke to Rogelio. Explained that Dr. Dejesus [...] PM EDT Office Visit Cardiology at [address] [address] Milagros Hernandez MD [facility] [place] [address] Scheduled Procedures Name Priority Associated Diagnoses Date/Ti me EGD, UPPER GI ENDOSCOPY (WRV U 2.09) Peptic stricture of esophagus documented as of this encounter Visit Diagnoses Not on filedocumented in this encounter Care Teams Jigsawyer Relationship Specialty Start Date End Date David [place] MD [address] [place] [address] PCP - General 04/01/10 02/02/19 documented as of this encounter
--- OUTSIDE RECORDS SUMMARY | 2024-02-29 19:34 | XMS_ITS | Encounter Summary ---
Author Organization [facility] Address [facility] [place] [address] Care Team Providers Care Botany Laboratory Assistant Name Role Phone David Bule MD Primary Care Provider [phone] Encounter Details Date Type Department Care Team (Late st Contact Info) Description 11/22/2018 11:15 AM EDT - 11/22/2018 11:45 AM EDT [place] [address] David Dejesus MD [facility] [place] [address] EGD WITH BIOPSY (WRVU 2.39) Social History [...] better as expected. Wednesday-Wednesday Same Day Endo [phone] 7a-8p Otherwise contact [phone] and ask to speak to the marine service station attendant button sewing machine operator Follow-up care is a fam part of [...] meter kit. 1 each 0 12/14/2014 Insulin [place], Disposable, (BD INSULIN PEN NEEDLE UF MINI) [...] PM EDT Office Visit Cardiology at [address] [address] Milagros Hernandez MD [facility] [place] [address] Scheduled Procedures Name Priority Associated [...] PM EDT 11/22/2018 12:43 PM EDT Narrative [facility] - 11/22/2018 12:43 PM EDT Specimen requisition ordered. ??Separate Pathology report to follow David Dejesus MD PATHOLOGY/CYTOLOGY ORDERABLES [facility] [place] [place] [address] * Surgical Pathology Report (11/22/2018 12:34 PM EDT) Final Diagnosis [id number] ? Location: 4T; EA06; A The signing [...] Nguyen MD Verified: ??11/23/2018 ?Pathologist Performed at: ??-[facility] Dept. of Pathology, [place], [place] CLINICAL INFORMATION Specimen Submitted: A - [...] Four, ranging 0.1-0.4 cm. Tissue Description: Soft, ikrby tissues. Sections/Proces sing: Submitted en toto ??in [...] labeled E1. ??shb 11/23/2018 2:35 PM EDT [facility] GI Biopsy 11/22/2018 12:3 4 [...] PATHOLOGY/CYTOLOGY ORDERABLES [facility] [place] [address] * Specimen to Pathology (11/22/2018 12:34 PM EDT) AP Specimen 11/22/2018 12:3 4 PM EDT 11/22/2018 12:34 PM EDT Narrative [facility] - 11/22/2018 12:34 PM EDT Specimen requisition ordered. ??Separate Pathology report to follow David Dejesus MD PATHOLOGY/CYTOLOGY ORDERABLES [facility] [place] [address] * Specimen to Pathology (11/22/2018 12:34 PM EDT) AP Specimen 11/22/2018 12:3 4 PM EDT 11/22/2018 12:34 PM EDT Narrative [facility] - 11/22/2018 12:34 PM EDT Specimen requisition ordered. ??Separate Pathology report to follow David Dejesus MD PATHOLOGY/CYTOLOGY ORDERABLES Performing Organization Address [facility] [place] [address] * Specimen to Pathology (11/22/2018 12:34 PM EDT) AP Specimen 11/22/2018 12:3 4 PM EDT 11/22/2018 12:34 PM EDT Narrative [facility] - 11/22/2018 12:34 PM EDT Specimen requisition ordered. ??Separate Pathology report to follow David Dejesus MD PATHOLOGY/CYTOLOGY ORDERABLES Performing Organization Address [facility] [place] [address] * Specimen to Pathology (11/22/2018 12:34 PM EDT) AP Specimen 11/22/2018 12:3 4 PM EDT 11/22/2018 12:34 PM EDT Narrative [facility] - 11/22/2018 12:34 PM EDT Specimen requisition ordered. ??Separate Pathology report to follow David Dejesus MD PATHOLOGY/CYTOLOGY ORDERABLES Performing Organization Address [facility] [place] [place] [address] * UPPER GI ENDOSCOPY (11/22/2018 12:12 PM EDT) UPPER GI ENDOSCOPY [facility] Endoscopy Procedure Date: 11/22/2018 12:12 PM ? Patient Name: Jennifer Irving ? Date of : 1960 ? Age: 58 ? Order #: [id number] ? Instrument Name: [id number] LOANER ? Procedure: ? Upper GI endoscopy [...] GENERAL SURGICAL ORD ERABLES Performing Organization Address City/[facility] Co de Phone Number PROVATION * (ABNORMAL) POCT Glucose (11/22/2018 10:58 AM EDT) Glucose, POC 277(H) 65 - 199 mg/dL [facility] Comment: Supplemental ranges: <140 mg/dL before meals <180 mg/dL all other times of the day Blood specimen (specimen) 11/22/2018 10:58 AM EDT 11/22/2018 10:58 AM EDT David Dejesus MD POINT OF CARE TEST ORDERABLES Performing Organization Address [facility] Co de Phone Number [facility] [place] [address] documented in this encounter Visit Diagnoses Not [...] CRNA) documented in this encounter Care Teams Botany Laboratory Assistant Relationship Specialty Start Date End Date David Blue MD [address] [place] [address] PCP - General 04/01/10 02/02/19 documented as of this encounter
--- OUTSIDE RECORDS SUMMARY | 2024-02-29 19:34 | XMS_ITS | Encounter Summary ---
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 last 04/03/14 Procedures PRO UPPER GI ENDOSCOPY, DIAGNOSTIC PRO COLONOSCOPY, DIAGNOSTIC EGD, UPPER GI ENDOSCOPY Referral ID Status Reason Start Date Expiration Date Visits Re quested Visits Authorized [id number] 1 1 Encounter Details Date Type Department Care Team (Latest Contact Info) Description 03/20/2016 9:21 AM EST - 03/20/2016 1:24 PM EST Hospital Encounter [place] [address] David Dejesus MD [facility] [place] [address] Discharge Disposition: Home Social History Tobacco Use [...] or concerns, please call us Wednesday-Wednesday Clinic [phone] 8a-5p Same Day Endo [phone] 7a-8p Nights and weekends contact [phone] and ask to speak to the safety supervisor radiotelephone technical operator. Follow up care is a fam part [...] meter kit. 1 each 0 12/14/2014 Insulin [place], Disposable, (BD INSULIN PEN NEEDLE UF MINI) [...] PM EDT Office Visit Cardiology at [address] [address] Milagros Hernandez MD [facility] [place] [address] Scheduled Procedures Name Priority Associated Diagnoses Date/Ti [...] Report (03/20/2016 12:43 PM EST) Final Diagnosis [id number] ?Location: 4T; EA07; A The signing pathologist [...] ing: (T1) ??peters 03/24/2016 5:02 PM EST [facility] GI Biopsy 03/20/2016 12:4 3 [...] PM EST David Dejesus MD PATHOLOGY/CYTOLOGY ORDERABLES [facility] [place] [id number] * Specimen to Pathology (surgical or derm) (03/20/2016 12:43 PM EST) AP Specimen 03/20/2016 12:4 3 PM EST 03/20/2016 12:43 PM EST Narrative [facility] - 03/20/2016 12:43 PM EST Specimen requisition ordered. ??Separate Pathology report to follow David Dejesus MD PATHOLOGY/[place] [address] * Specimen to Pathology (surgical or derm) (03/20/2016 12:43 PM EST) AP Specimen 03/20/2016 12:4 3 PM EST 03/20/2016 12:43 PM EST Narrative [facility] - 03/20/2016 12:43 PM EST Specimen requisition ordered. ??Separate Pathology report to follow David Dejesus MD PATHOLOGY/[place] [address] * Specimen to Pathology (surgical or derm) (03/20/2016 12:43 PM EST) AP Specimen 03/20/2016 12:4 3 PM EST 03/20/2016 12:43 PM EST Narrative [facility] - 03/20/2016 12:43 PM EST Specimen requisition ordered. ??Separate Pathology report to follow David Dejesus MD PATHOLOGY/CYTOLOGY ORDERABLES Performing Organization Address City/[facility]/[place] [address] * Specimen to Pathology (surgical or derm) (03/20/2016 12:43 PM EST) AP Specimen 03/20/2016 12:4 3 PM EST 03/20/2016 12:43 PM EST Narrative [facility] - 03/20/2016 12:43 PM EST Specimen requisition ordered. ??Separate Pathology report to follow David Dejesus MD PATHOLOGY/[place] [address] * Specimen to Pathology (surgical or derm) (03/20/2016 12:43 PM EST) AP Specimen 03/20/2016 12:4 3 PM EST 03/20/2016 12:43 PM EST Narrative [facility] - 03/20/2016 12:43 PM EST Specimen requisition ordered. ??Separate Pathology report to follow David Dejesus MD PATHOLOGY/[place] [address] * Specimen to Pathology (surgical or derm) (03/20/2016 12:43 PM EST) AP Specimen 03/20/2016 12:4 3 PM EST 03/20/2016 12:43 PM EST Narrative [facility] - 03/20/2016 12:43 PM EST Specimen requisition ordered. ??Separate Pathology report to follow David Dejesus MD PATHOLOGY/CYTOLOGY ORDERABLES Performing Organization Address [facility] [place]/State/ZIP Co de Phone Number [facility] [place] [address] * COLONOSCOPY (03/20/2016 11:32 AM EST) COLONOSCOPY [facility] Endoscopy Procedure Date: 03/20/2016 11:32 AM ? Patient Name: Jennifer Irving ? Date of : 1960 ? Age: 55 ? Order #: [id number] ? Instrument Name: [id number] ? Procedure: ? Colonoscopy Indications: ? Screening for colorectal malignant ? neoplasm Providers: ? David Dejesus MD, Geronimo Joynre ? MD Valerie, Tapan Chong RN, ? Theodora Farrell, Counter Pocket Trimmer Referring MD: ?David Blue MD Medicines: ? [...] 11:31 AM EST) UPPER GI ENDOSCOPY [facility] Procedure Date: 03/20/2016 11:31 AM ? Patient Name: Jennifer Irving ? Date of : 1960 ? Age: 55 ? Order #: [id number] ? Instrument Name: [id number] ? Procedure: ? Upper GI endoscopy Indications: [...] care under the ? supervision of a PUNCH MACHINE OPERATOR was determined ? to be medically necessary [...] GENERAL SURGICAL ORD ERABLES Performing Organization Address [facility] [place]/[facility] de Phone Number PROVATION * (ABNORMAL) POCT Glucose (03/20/2016 10:54 AM EST) Glucose, POC 243(H) 65 - 199 mg/dL [facility] Comment: Supplemental ranges: <140 mg/dL before meals <180 mg/dL all other times of the day Blood specimen (specimen) 03/20/2016 10:54 AM EST 03/20/2016 10:54 AM EST David Dejesus MD POINT OF CARE TEST ORDERABLES [facility] [place] [address] * (ABNORMAL) POCT Fingerstick Glucose (03/20/2016) Glucose, [...] CRNA) documented in this encounter Care Teams Emergency Response Technician Relationship Specialty Start Date End Date David Blue MD [address] [place] [address] PCP - General 04/01/10 02/02/19 documented as of this encounter
--- OUTSIDE RECORDS SUMMARY | 2024-02-29 19:34 | XMS_ITS | Encounter Summary ---
Author Organization [facility] Address [facility] [place] [address] Care Team Providers Care Employment Programs Analyst Name Role Phone David Blue MD Primary Care Provider + [phone] Reason for Visit * Reason Comments Gastroesophageal Reflux Encounter Details Date Type Department Care Team (Late st Contact Info) Description 03/20/2014 1:00 PM EST Office [place] [address] Baljinder Maharaj MD [facility] [place] [address] GERD (gastroesophageal reflux disease); Farrell's esophagus Discharge [...] David Dejesus M.D. Patient's Record Referring Physician: Daivd Dejesus M.D. Ms. Irving is a 53-year-old [...] visit was 30 minutes, all spent in [id number] discussion with the patient and her and son. documented in this encounter Plan of Treatment Upcoming Encounters Date Type Department Care Team (Late st Contact Info) Description 03/10/2024 4:00 PM EDT Office Visit Cardiology at [address] [address] Milagros Hernandez MD [facility] [place] [address] Scheduled Procedures Name Priority Associated Diagnoses Date/Ti me EGD, UPPER GI ENDOSCOPY (WRV U 2.09) Peptic stricture of esophagus documented as of this encounter Visit Diagnoses Diagnosis GERD (gastroesophageal reflux disease) Esophageal reflux Farrell's esophagus documented in this encounter Care Teams Employment Programs Analyst Relationship Specialty Start Date End Date David Blue MD [address] [place] [address] PCP - General 04/01/10 02/02/19 documented as of this encounter
--- OUTSIDE RECORDS SUMMARY | 2024-02-29 19:34 | XMS_ITS | Encounter Summary ---
Author Organization [facility] Address [facility] [place] [address] Care Team Providers Care Geriatric Assistant Name Role Phone David Blue MD Primary Care Provider + [phone] Encounter Details Date Type Department Care Team (Late st Contact Info) Description 07/22/2018 11:59 PM EDT Anesthesia [place] [phone] Vanessa Escalona MD [facility] [place] [address] Anesthesia Record Procedure Summary Procedure Name Responsible [...] BX performed by David Dejesus MD at [facility] ??? PRO UPPER GI ENDOSCOPY, BIOPSY N/A 04/03/2014 UPPER GASTROINTESTINAL ENDOSCOPY,WITH BIOPSY SINGLE OR MULTIPLE performed by David Dejesus MDat [facility] ??? PRO UPPER GI ENDOSCOPY, BIOPSY N/A 03/20/2016 EGD WITH BIOPSY performed by David Dejesus MD at [facility] ??? PRO UPPER GI ENDOSCOPY, DIAGNOSTIC N/A 04/03/2014 EGD, UPPER GI ENDOSCOPY performed by David Dejesus MD at [facility] Social History Tobacco Use ??? [...] discussed with patient who. Plan discussed with CONSULTING APPLICATION ENGINEER. PAT Staff Note documented in this encounter Plan of Treatment Upcoming Encounters Date Type Department Care Team (Late st Contact Info) Description 03/10/2024 4:00 PM EDT Office Visit Cardiology at [address] [address] Milagros Hernandez MD [facility] [place] [address] Scheduled Procedures Name Priority Associated Diagnoses Date/Ti me EGD, UPPER GI ENDOSCOPY (WRV U 2.09) Peptic stricture of esophagus documented as of this encounter Visit Diagnoses Not on filedocumented in this encounter Care Teams Geriatric Assistant Relationship Specialty Start Date End Date David Blue MD [address] [place] [address] PCP - General 04/01/10 02/02/19 documented as of this encounter
--- OUTSIDE RECORDS SUMMARY | 2024-02-29 19:34 | XMS_ITS | Encounter Summary ---
Author Organization [facility] Address [facility] [place] [address] Care Team Providers Care Concession Supervisor Name Role Phone David Blue MD Primary Care Provider + [phone] Encounter Details Date Type Department Care Team (Late st Contact Info) Description 09/21/2017 Telephone [place] [address] Ami Chao RN Social History [...] PM EDT Office Visit Cardiology at [address] [address] Milagros Hernandez MD [facility] [place] [address] Scheduled Procedures Name Priority Associated Diagnoses Date/Ti me EGD, UPPER GI ENDOSCOPY (WRV U 2.09) Peptic stricture of esophagus documented as of this encounter Visit Diagnoses Not on filedocumented in this encounter Care Teams Concession Supervisor Relationship Specialty Start Date End Date David Blue MD [address] [place] [address] PCP - General 04/01/10 02/02/19 documented as of this encounter
--- OUTSIDE RECORDS SUMMARY | 2024-02-29 19:34 | XMS_ITS | Encounter Summary ---
Author Organization [facility] Address [facility] [place] [address] Care Team Providers Care Validation Technician Name Role Phone David Blue MD Primary Care Provider [phone] Encounter Details Date Type Department Care Team (Late st Contact Info) Description 04/30/2016 Orders [place] [phone] David Dejesus MD [facility] [place] [address] Visit for screening mammogram Social History Tobacco [...] PM EDT Office Visit Cardiology at [address] [phone] Milagros Hernandez MD [facility] [place] [address] Scheduled Procedures Name Priority Associated Diagnoses Date/Ti me EGD, UPPER GI ENDOSCOPY (WRV U 2.09) Peptic stricture of esophagus documented as of this encounter Visit Diagnoses Diagnosis Visit for screening mammogram Other screening mammogram documented in this encounter Care Teams Validation Technician Relationship Specialty Start Date End Date David Blue MD [address] [place] [address] PCP - General 04/01/10 02/02/19 documented as of this encounter
--- OUTSIDE RECORDS SUMMARY | 2024-02-29 19:34 | XMS_ITS | Encounter Summary ---
Author Organization [facility] Address [facility] [place] [address] Care Team Providers Care Drive Tester Name Role Phone David Blue MD Primary Care Provider [phone] Encounter Details Date Type Department Care Team (Late st Contact Info) Description 12/14/2014 Orders [place] [phone] Dean Caban MD [facility] [place] [address] Type 2 diabetes mellitus, uncontrolled Social History [...] PM EDT Office Visit Cardiology at [address] [phone] Milagros Hernandez MD [facility] [place] [address] Scheduled Procedures Name Priority Associated Diagnoses Date/Ti me EGD, UPPER GI ENDOSCOPY (WRV U 2.09) Peptic stricture of esophagus documented as of this encounter Visit Diagnoses Diagnosis Type 2 diabetes mellitus, uncontrolled Type II or unspecified type diabetes mellitus without mention of complication, uncontrolled documented in this encounter Care Teams Drive Tester Relationship Specialty Start Date End Date David Blue MD [address] [place] [address] PCP - General 04/01/10 02/02/19 documented as of this encounter
--- OUTSIDE RECORDS SUMMARY | 2024-02-29 19:34 | XMS_ITS | Encounter Summary ---
Author Organization [facility] Address [facility] [place] [address] Care Team Providers Care Basket Bottom Machine Operator Name Role Phone David Blue MD Primary Care Provider + [phone] Encounter Details Date Type Department Care Team (Late st Contact Info) Description 03/19/2016 Telephone [place] [phone] Angela Thompson Social History Tobacco Use Types Packs/Day Years Used Date Smoking Tobacco: Every Day Smokeless Tobacco: Never Sex and Gender Information Value Date Recorded Sex Assigned at Not on file Gender Identity Not on file Sexual Orientation Not on file documented as of this encounter Miscellaneous Notes * Telephone Encounter - Angela Palacios - 03/19/2016 9:36 AM EST Caller: director of pharmacy from [place], [place] Call for: MA's Reason for call: [...] PM EDT Office Visit Cardiology at [address] [phone] Milagros Hernandez MD [facility] [place] [address] Scheduled Procedures Name Priority Associated Diagnoses Date/Ti me EGD, UPPER GI ENDOSCOPY (WRV U 2.09) Peptic stricture of esophagus documented as of this encounter Visit Diagnoses Not on filedocumented in this encounter Care Teams Basket Bottom Machine Operator Relationship Specialty Start Date End Date David Blue MD [address] [place] [address] PCP - General 04/01/10 02/02/19 documented as of this encounter
--- OUTSIDE RECORDS SUMMARY | 2024-02-29 19:34 | XMS_ITS | Encounter Summary ---
Author Organization [facility] Address [facility] [place] [address] Care Team Providers Care Pony Worker Name Role Phone David Blue MD Primary Care Provider [phone] Encounter Details Date Type Department Care Team (Late st Contact Info) Description 12/24/2014 Orders [place] [phone] David Dejesus MD [facility] [place] [address] Social History Tobacco Use Types Packs/Day Years [...] PM EDT Office Visit Cardiology at [address] [phone] Milagros Hernandez MD [facility] [place] [address] Scheduled Procedures Name Priority Associated Diagnoses Date/Ti me EGD, UPPER GI ENDOSCOPY (WRV U 2.09) Peptic stricture of esophagus documented as of this encounter Visit Diagnoses Not on filedocumented in this encounter Care Teams Pony Worker Relationship Specialty Start Date End Date David Blue MD [address] [place] [address] PCP - General 04/01/10 02/02/19 documented as of this encounter
--- OUTSIDE RECORDS SUMMARY | 2024-02-29 19:34 | XMS_ITS | Encounter Summary ---
Author Organization [facility] [place] [address] Care Team Providers Care Nylon Hot Wire Cutter Name Role Phone Ana Gillespie APRN Primary Care Provider [phone] Encounter Details Date Type Department Care Team (Late st Contact Info) Description 09/06/2009 Orders Only Gyne[place] [phone] Kathy Romero MD [facility] [place] [address] Social History Tobacco Use Types Packs/Day Years [...] PM EDT Office Visit Cardiology at [address] [phone] Milagros Hernandez MD [facility] [place] [address] Scheduled Procedures Name Priority Associated Diagnoses Date/Ti me EGD, UPPER GI ENDOSCOPY (WRV U 2.09) Peptic stricture of esophagus documented as of this encounter Procedures Procedure Name Priority Date/Time Associated Diagnosis Comments NON-ACCOUNTING SUPPORT SPECIALIST FINAL REPORT Routine 09/06/2009 12:50 PM EDT documented in this encounter Results * Non-Branch Credit Counselor Final Report (09/06/2009 12:50 PM EDT) Non-Branch Credit Counselor Final Report [id number] ? Location: [facility] The signing pathologist has (i) examined the relevant preparation(s) for the specimen(s) and (ii) rendered or confirmed the diagnosis(es). . ? Pathology Non-Branch Credit Counselor Cytology Final Report Clinical Information Specimen Source: [...] cytologic impression. ??Please see concurrent surgical specimen, [id number], for additional information. DARCY BARNETT 09/06/2009 12:5 [...] documented as of this encounter Care Teams Nylon Hot Wire Cutter Relationship Specialty Start Date End Date Ana Gillespie APRN [address] [place] [address] PCP - General Family Medicine 02/03/19 documented as of this encounter
--- OUTSIDE RECORDS SUMMARY | 2024-02-29 19:34 | XMS_ITS | Encounter Summary ---
[place] [address] Care Team Providers Care Coin Teller Name Role Phone David Blue MD Primary Care Provider + [phone] Reason for Visit * Reason Onset Date Comments Other 03/21/2014 Motility Studies Canceled Encounter Details Date Type Department Care Team (Late st Contact Info) Description 03/21/2014 Telephone [place] [address] Mya Garzon Other (Motility Studies [...] PM EDT Office Visit Cardiology at [address] [phone] Milagros Hernandez MD [facility] [place] [address] Scheduled Procedures Name Priority Associated Diagnoses Date/Ti me EGD, UPPER GI ENDOSCOPY (WRV U 2.09) Peptic stricture of esophagus documented as of this encounter Visit Diagnoses Not on filedocumented in this encounter Care Teams Coin Teller Relationship Specialty Start Date End Date David Blue MD [address] [place] [address] PCP - General 04/01/10 02/02/19 documented as of this encounter
--- OUTSIDE RECORDS SUMMARY | 2024-02-29 19:34 | XMS_ITS | Encounter Summary ---
Author Organization Formerly [facility] [place] [address] Care Team Providers Care Hardware Developer Name Role Phone David Blue MD Primary Care Provider + [phone] Reason for Visit * Reason Onset Date Comments Prior Authorization 03/12/2016 Encounter Details Date Type Department Care Team (Late st Contact Info) Description 03/12/2016 Telephone Gastroenterology at [facility] [place] [address] Francoise Vides CMA GASTROENTEROLOGY DEPT Prior Authorization [...] PM EDT Office Visit Cardiology at [address] [address] Milagros Hernandez MD [facility] [place] [address] Scheduled Procedures Name Priority Associated Diagnoses Date/Ti me EGD, UPPER GI ENDOSCOPY (WRV U 2.09) Peptic stricture of esophagus documented as of this encounter Visit Diagnoses Not on filedocumented in this encounter Care Teams Hardware Developer Relationship Specialty Start Date End Date David Blue MD [address] [place] [address] PCP - General 04/01/10 02/02/19 documented as of this encounter
--- OUTSIDE RECORDS SUMMARY | 2024-02-29 19:34 | XMS_ITS | Encounter Summary ---
Author Organization [facility] Address [facility] [place] [address] Care Team Providers Care Still Tender Name Role Phone David Blue MD Primary Care Provider [phone] Encounter Details Date Type Department Care Team (Late st Contact Info) Description 02/24/2016 Orders [place] [phone] David Dejesus MD [facility] [place] [address] Screening breast examination Social History Tobacco Use [...] PM EDT Office Visit Cardiology at [address] [phone] Milagros Hernandez MD [facility] [place] [address] Scheduled Procedures Name Priority Associated Diagnoses Date/Ti me EGD, UPPER GI ENDOSCOPY (WRV U 2.09) Peptic stricture of esophagus documented as of this encounter Visit Diagnoses Diagnosis Screening breast examination Other screening breast examination documented in this encounter Care Teams Still Tender Relationship Specialty Start Date End Date David Blue MD [address] [place] [address] PCP - General 04/01/10 02/02/19 documented as of this encounter
--- OUTSIDE RECORDS SUMMARY | 2024-02-29 19:34 | XMS_ITS | Encounter Summary ---
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 04/03/14 Procedures PRO UPPER GI ENDOSCOPY, DIAGNOSTIC PRO COLONOSCOPY, DIAGNOSTIC EGD, UPPER GI ENDOSCOPY Referral ID Status Reason Start Date Expiration Date Visits Re quested Visits Authorized [id number] 1 1 Encounter Details Date Type Department Care Team (Late st Contact Info) Description 03/20/2016 11:00 AM EST - 03/20/2016 12:00 PM EST [place] [address] David Dejesus MD [facility] [place] [address] EGD WITH BIOPSY (WRVU 2.39) Social History [...] or concerns, please call us Wednesday-Wednesday Clinic [phone] 8a-5p Same Day Endo [phone] 7a-8p Nights and weekends contact [phone] and ask to speak to the heating and cooling technician art objects salesperson. Follow up care is a fam part [...] meter kit. 1 each 0 12/14/2014 Insulin [place], Disposable, (BD INSULIN PEN NEEDLE UF MINI) [...] PM EDT Office Visit Cardiology at [address] [address] Milagros Hernandez MD [facility] [place] [address] Scheduled Procedures Name Priority Associated Diagnoses Date/Ti [...] Report (03/20/2016 12:43 PM EST) Final Diagnosis [id number] ?Location: 4T; EA07; A The signing pathologist [...] ing: (T1) ??peters 03/24/2016 5:02 PM EST [facility] GI Biopsy 03/20/2016 12:4 3 PM [...] Dejesus MD PATHOLOGY/CYTOLOGY ORDERABLES Performing Organization Address City/[facility]/ZIP Co de Phone Number [facility] [place] [phone] * Specimen to Pathology (surgical or derm) (03/20/2016 12:43 PM EST) AP Specimen 03/20/2016 12:4 3 PM EST 03/20/2016 12:43 PM EST Narrative [facility] - 03/20/2016 12:43 PM EST Specimen requisition ordered. ??Separate Pathology report to follow David Dejesus MD PATHOLOGY/CYTOLOGY ORDERABLES Performing Organization Address [facility]/[place] [address] * Specimen to Pathology (surgical or derm) (03/20/2016 12:43 PM EST) AP Specimen 03/20/2016 12:4 3 PM EST 03/20/2016 12:43 PM EST Narrative [facility] - 03/20/2016 12:43 PM EST Specimen requisition ordered. ??Separate Pathology report to follow David Dejesus MD PATHOLOGY/[place] [address] * Specimen to Pathology (surgical or derm) (03/20/2016 12:43 PM EST) AP Specimen 03/20/2016 12:4 3 PM EST 03/20/2016 12:43 PM EST Narrative [facility] - 03/20/2016 12:43 PM EST Specimen requisition ordered. ??Separate Pathology report to follow David Dejesus MD PATHOLOGY/CYTOLOGY ORDERABLES Performing Organization Address City/[facility]/[place] [address] * Specimen to Pathology (surgical or derm) (03/20/2016 12:43 PM EST) AP Specimen 03/20/2016 12:4 3 PM EST 03/20/2016 12:43 PM EST Narrative [facility] - 03/20/2016 12:43 PM EST Specimen requisition ordered. ??Separate Pathology report to follow David Dejesus MD PATHOLOGY/CYTOLOGY ORDERABLES Performing Organization Address City/[facility]/[place] [address] * Specimen to Pathology (surgical or derm) (03/20/2016 12:43 PM EST) AP Specimen 03/20/2016 12:4 3 PM EST 03/20/2016 12:43 PM EST Narrative [facility] - 03/20/2016 12:43 PM EST Specimen requisition ordered. ??Separate Pathology report to follow David Dejesus MD PATHOLOGY/CYTOLOG[place] [address] * Specimen to Pathology (surgical or derm) (03/20/2016 12:43 PM EST) AP Specimen 03/20/2016 12:4 3 PM EST 03/20/2016 12:43 PM EST Narrative [facility] - 03/20/2016 12:43 PM EST Specimen requisition ordered. ??Separate Pathology report to follow David Dejesus MD PATHOLOGY/CYTOLOGY ORDERABLES Performing Organization Address [facility]/State/[place] [address] * COLONOSCOPY (03/20/2016 11:32 AM EST) COLONOSCOPY [facility] Endoscopy Procedure Date: 03/20/2016 11:32 AM ? Patient Name: Jennifer Irving ? N: [id number] ? Date of : 1960 ? Age: 55 ? Order #: [id number] ? Instrument Name: [id number] ? Procedure: ? Colonoscopy Indications: ? Screening for colorectal malignant ? neoplasm Providers: ? David Dejesus MD, Geronimo Joyner ? MD Valerie, Tapan Chong RN, ? Theodora Farrell, Mobile Solutions Architect Referring : ?David Blue MD Medicines: ? [...] performed the entire procedure. ? ___ David eDjesus MD 03/20/2016 12:38:55 PM This report has [...] 1960 ? Age: 55 ? Order #: [id number] ? Instrument Name: [id number] ? Procedure: ? Upper GI endoscopy Indications: [...] care under the ? supervision of a MANAGEMENT AND BUDGET ANALYST was determined ? to be medically necessary [...] GENERAL SURGICAL ORD ERABLES Performing Organization Address City/State/[facility] Co de Phone Number [facility] * (ABNORMAL) POCT Glucose (03/20/2016 10:54 AM EST) Glucose, POC 243(H) 65 - 199 mg/dL [facility] Comment: Supplemental ranges: <140 mg/dL before meals <180 mg/dL all other times of the day Blood specimen (specimen) 03/20/2016 10:54 AM EST 03/20/2016 10:54 AM EST David Dejesus MD POINT OF CARE TEST ORDERABLES [facility] [place] [address] * (ABNORMAL) POCT Fingerstick Glucose (03/20/2016) Glucose, [...] CRNA) documented in this encounter Care Teams Network Operations Manager Relationship Specialty Start Date End Date David Blue MD [address] [place] [address] PCP - General 04/01/10 02/02/19 documented as of this encounter
--- OUTSIDE RECORDS SUMMARY | 2024-02-29 19:34 | XMS_ITS | Encounter Summary ---
Author Organization [facility] Address [facility] [place] [address] Care Team Providers Care Paper Cutter Name Role Phone David Blue MD Primary Care Provider [phone] Reason for Visit * Reason Comments GI Problem Encounter Details Date Type Department Care Team (Late st Contact Info) Description 03/15/2013 9:00 AM EST Office [place] [address] [facility] [place] [address] GERD (gastroesophageal reflux disease) (Primary Dx); Covington's [...] to have her Covington's management here at [facility]. We reviewed the issues of timing of [...] to be successful. 45 of 60 direct vurb-ji-teyc minutes spent in counseling, and the rest [...] PM EDT Office Visit Cardiology at [address] [address] [facility] [place] [address] Scheduled Procedures Name Priority Associated Diagnoses Date/Ti me EGD, UPPER GI ENDOSCOPY (WRV U 2.09) Peptic stricture of esophagus documented as of this encounter Visit Diagnoses Diagnosis GERD (gastroesophageal reflux disease)- Primary Esophageal reflux Covington's esophagus documented in this encounter Care Teams Paper Cutter Relationship Specialty Start Date End Date David Blue MD [address] [place] [address] PCP - General 04/01/10 02/02/19 documented as of this encounter
--- OUTSIDE RECORDS SUMMARY | 2024-02-29 19:34 | XMS_ITS | Encounter Summary ---
Author Organization [facility] Address [facility] [place] [address] Care Team Providers Care Milk Receiver Tank Truck Name Role Phone David Blue MD Primary Care Provider [phone] Encounter Details Date Type Department Care Team (Late st Contact Info) Description 09/23/2016 Ancillary Procedure Radiology Library [place] [address] Ana Gillespie APRN [address] [place], [place] [id number] Social History Tobacco Use Types Packs/Day Years [...] PM EDT Office Visit Cardiology at [address] [place] [address] Milagros Hernandez MD [facility] [place] [address] Scheduled Procedures Name Priority Associated Diagnoses Date/Ti [...] Gillespie APRN IMG FILM LIBRARY ORD ERABLES [place], [place] documented in this encounter Visit Diagnoses Not on filedocumented in this encounter Care Teams Milk Receiver Tank Truck Relationship Specialty Start Date End Date David Blue MD [address] [place] [address] PCP - General 04/01/10 02/02/19 documented as of this encounter
--- OUTSIDE RECORDS SUMMARY | 2024-02-29 19:34 | XMS_ITS | Encounter Summary ---
Author Organization [facility] [place] [address] Care Team Providers Care Harp Maker Name Role Phone Ana Gillespie APRN Primary Care Provider [phone] Encounter Details Date Type Department Care Team (Late st Contact Info) Description 09/06/2009 Orders Only Gynecology [place] [phone] Kathy Romero MD [facility] [place] [address] Social History Tobacco Use Types Packs/Day Years [...] PM EDT Office Visit Cardiology at [address] [phone] Milagros Hernandez MD [facility] [place] [address] Scheduled Procedures Name Priority Associated Diagnoses Date/Ti me EGD, UPPER GI ENDOSCOPY (WRV U 2.09) Peptic stricture of esophagus documented as of this encounter Procedures Procedure Name Priority Date/Time Associated Diagnosis Comments SURGICAL PATHOLOGY REPORT Routine 09/06/2009 2:34 PM EDT documented in this encounter Results * Surgical Pathology Report (09/06/2009 2:34 PM EDT) Surgical Pathology Report [id number] ? Location: [facility] The signing pathologist has (i) [...] fibromembranous, and fibrofatty tissues. ??Sectioning reveals a 2.9-gd-eb-greates t- dimension, clear fluid-filled, smooth-lined cyst with surrounding rubbery, estrada-white tissue. Sections/Processi ng: ??A telephone services sales representative section is submitted for frozen ?section. ??The frozen section residue is submitted in ?(A1). ??Additional telephone services sales representative sections are ?submitted. (R4) ??aje/EJR [...] ?09/06/09 14:51 09/06/09 ??Verified by: ??Rohan MARTE, Viktor Segura, Pathologist The attending pathologist whose electronic signature appears on this report has reviewed all diagnostic slides in rendering the frozen section diagnosis. This intraoperative consultation should be interpreted as a preliminary diagnosis pending review of the entire specimen and special studies, if any. DARCY BARNETT 09/06/2009 2:34 PM EDT Kathy Romero MD PATHOLOGY/CYTOLOGY O RDERABLES Performing Organization Address City/State/[facility] Co de Phone Number DARCY BARNETT documented in this encounter Visit Diagnoses Not on filedocumented in this encounter Additional Health Concerns Infection Onset Date Last Indicated Resolved Time Rule Out COVID-19 08/15/2022 08/15/2022 08/15/2022 11:30 AM EDT Rule Out COVID-19 08/15/2022 08/15/2022 08/15/2022 3:01 PM EDT Rule Out C. difficile 08/19/2022 08/19/20222022 8:33 PM EDT documented as of this encounter Care Teams Harp Maker Relationship Specialty Start Date End Date Ana Gillespie APRN [address] [place] [address] PCP - General Family Medicine 02/03/19 documented as of this encounter
--- OUTSIDE RECORDS SUMMARY | 2024-02-29 19:34 | XMS_ITS | Encounter Summary ---
[place] [address] Care Team Providers Care Rehab Director Occupational Therapist Name Role Phone David Blue MD Primary Care Provider [phone] Reason for Visit * Reason Onset Date Comments Prior Authorization 09/22/2017 Encounter Details Date Type Department Care Team (Late st Contact Info) Description 09/22/2017 Telephone [place] [address] Francoise Vides CMA GASTROENTEROLOGY DEPT Prior Authorization [...] Prior Authorization 4L Gastroenterology / [place] [address] Subscriber Insurance: [place] Medicaid Phone: . Fax: Physician: David Dejesus Return Pharmacy: [facility] Medication Requested: pantoprazole Strength: 40 mg Frequency: BID Disp.: 180 Refills: 3 Currently taking: no Diagnosis for this medication: Farrell's w/ dysplasia, and GERD ICD-10 code: Prior medications trialed in this patient: Pantoprazole QD, esomperazole, and omeprazole Medication: Outcome/Adverse Reactions: treatment failure Decision: approved Tracking number/Case number/Reference number: [id number] Effective date: Start: 09/22/2017 End: 09/22/2018 documented in this encounter Plan of Treatment Upcoming Encounters Date Type Department Care Team (Late st Contact Info) Description 03/10/2024 4:00 PM EDT Office Visit Cardiology at [address] [address] Milagros Hernandez MD [facility] [place] [address] Scheduled Procedures Name Priority Associated Diagnoses Date/Ti me EGD, UPPER GI ENDOSCOPY (WRV U 2.09) Peptic stricture of esophagus documented as of this encounter Visit Diagnoses Not on filedocumented in this encounter Care Teams Rehab Director Occupational Therapist Relationship Specialty Start Date End Date David Blue MD [address] [place] [address] PCP - General 04/01/10 02/02/19 documented as of this encounter
--- OUTSIDE RECORDS SUMMARY | 2024-02-29 19:34 | XMS_ITS | Encounter Summary ---
[place] [address] Care Team Providers Care Associate Pastor Name Role Phone David Blue MD Primary Care Provider [phone] Reason for Visit * Reason Onset Date Comments Medication Refill 09/20/2018 Encounter Details Date Type Department Care Team (Late st Contact Info) Description 09/20/2018 Tele[place] [address] Francoise Vides CMA GASTROENTEROLOGY DEPT [...] PM EDT Office Visit Cardiology at [address] [address] Milagros Hernandez MD [facility] [place] [place] [address] Scheduled Procedures Name Priority Associated Diagnoses Date/Ti me EGD, UPPER GI ENDOSCOPY (WRV U 2.09) Peptic stricture of esophagus documented as of this encounter Visit Diagnoses Not on filedocumented in this encounter Care Teams Associate Pastor Relationship Specialty Start Date End Date David Blue MD [address] [place] [address] PCP - General 04/01/10 02/02/19 documented as of this encounter
--- OUTSIDE RECORDS SUMMARY | 2024-02-29 19:34 | XMS_ITS | Encounter Summary ---
Author Organization [facility] Address [facility] [place] [address] Care Team Providers Care Panel Installer Name Role Phone David Blue MD Primary Care Provider [phone] Encounter Details Date Type Department Care Team (Latest Contact Info) Description 11/22/2018 10:02 AM EDT - 11/22/2018 1:36 PM EDT Hospital Encounter [place] [address] David Dejesus MD [facility] [place] [address] Discharge Disposition: Home Social History Tobacco Use [...] better as expected. Wednesday-Wednesday Same Day Endo [phone] 7a-8p Otherwise contact [phone] and ask to speak to the wool washer feeder applications developer Follow-up care is a fam part of [...] meter kit. 1 each 0 12/14/2014 Insulin [place], Disposable, (BD INSULIN PEN NEEDLE UF MINI) [...] PM EDT Office Visit Cardiology at [address] [address] Milagros Hernandez MD [facility] [place] [address] Scheduled Procedures Name Priority [...] PM EDT 11/22/2018 12:43 PM EDT Narrative [facility] - 11/22/2018 12:43 PM EDT Specimen requisition ordered. ??Separate Pathology report to follow David Dejesus MD PATHOLOGY/CYTOLOGY ORDERABLES [facility] [place] [address] * Surgical Pathology Report (11/22/2018 12:34 PM EDT) Final Diagnosis [id number] ? Location: 4T; EA06; A The signing [...] MD Verified: ??11/23/2018 ?Pathologist Performed at: ??-[facility] [place]. [place], [place], [place] CLINICAL INFORMATION Specimen Submitted: A - [...] labeled E1. ??shb 11/23/2018 2:35 PM EDT [facility] GI Biopsy 11/22/2018 12:3 4 PM EDT 11/22/2018 12:34 PM EDT GI Biopsy 11/22/2018 12:3 4 PM EDT 11/22/2018 12:34 PM EDT GI Biopsy 11/22/2018 12:3 4 PM EDT 11/22/2018 12:34 PM EDT GI Biopsy 11/22/2018 12:3 4 PM EDT 11/22/2018 12:34 PM EDT GI Biopsy 11/22/2018 12:3 4 PM EDT 11/22/2018 12:34 PM EDT David Dejesus MD PATHOLOGY/CYTOLOGY ORDERABLES [facility] [place] [address] * Specimen to Pathology (11/22/2018 12:34 PM EDT) AP Specimen 11/22/2018 12:3 4 PM EDT 11/22/2018 12:34 PM EDT Narrative [facility] - 11/22/2018 12:34 PM EDT Specimen requisition ordered. ??Separate Pathology report to follow David Dejesus MD PATHOLOGY/CYTOLOGY ORDERABLES Performing Organization Address City/[facility]/ZIP Co de Phone Number [facility] [place] [address] * Specimen to Pathology (11/22/2018 12:34 PM EDT) AP Specimen 11/22/2018 12:3 4 PM EDT 11/22/2018 12:34 PM EDT Narrative [facility] - 11/22/2018 12:34 PM EDT Specimen requisition ordered. ??Separate Pathology report to follow David Dejesus MD PATHOLOGY/CYTOLOGY ORDERABLES Performing Organization Address [facility] [place] [place] [address] * Specimen to Pathology (11/22/2018 12:34 PM EDT) AP Specimen 11/22/2018 12:3 4 PM EDT 11/22/2018 12:34 PM EDT Narrative [facility] - 11/22/2018 12:34 PM EDT Specimen requisition ordered. ??Separate Pathology report to follow David Dejesus MD PATHOLOGY/CYTOLOGY ORDERABLES Performing Organization Address [facility] [place] [address] * Specimen to Pathology (11/22/2018 12:34 PM EDT) AP Specimen 11/22/2018 12:3 4 PM EDT 11/22/2018 12:34 PM EDT Narrative [facility] - 11/22/2018 12:34 PM EDT Specimen requisition ordered. ??Separate Pathology report to follow David Dejesus MD PATHOLOGY/CYTOLOGY ORDERABLES Performing Organization Address [facility] [place] [address] * UPPER GI ENDOSCOPY (11/22/2018 12:12 PM EDT) UPPER GI ENDOSCOPY [facility] Endoscopy Procedure Date: 11/22/2018 12:12 PM ? Patient Name: Jennifer Irving ? Date of : 1960 ? Age: 58 ? Order #: [id number] ? Instrument Name: [id number] LOANER ? Procedure: ? Upper GI endoscopy [...] GENERAL SURGICAL ORD ERABLES Performing Organization Address [facility] Co de Phone Number [facility] * (ABNORMAL) POCT Glucose (11/22/2018 10:58 AM EDT) Glucose, POC 277(H) 65 - 199 mg/dL [facility] Comment: Supplemental ranges: <140 mg/dL before meals <180 mg/dL all other times of the day Blood specimen (specimen) 11/22/2018 10:58 AM EDT 11/22/2018 10:58 AM EDT David Dejesus MD POINT OF CARE TEST ORDERABLES Performing Organization Address [facility] Co de Phone Number [facility] [place] [address] documented in this encounter Visit Diagnoses Not [...] CRNA) documented in this encounter Care Teams Panel Installer Relationship Specialty Start Date End Date David Blue MD [address] [place] [address] PCP - General 04/01/10 02/02/19 documented as of this encounter
--- OUTSIDE RECORDS SUMMARY | 2024-02-29 19:34 | XMS_ITS | Encounter Summary ---
Author Organization [facility] Address [facility] [place] [address] Care Team Providers Care Antique Clock Repairer Name Role Phone David Blue MD Primary Care Provider [phone] Encounter Details Date Type Department Care Team (Late st Contact Info) Description 01/15/2011 Ancillary Procedure Radiology Library at [facility] [place] [address] Ana Gillespie APRN [address] [place] [address] Social History Tobacco Use Types [...] PM EDT Office Visit Cardiology at [address] [address] Milagros Hernandez MD [facility] [place] [address] Scheduled Procedures Name Priority Associated Diagnoses Date/Ti me EGD, UPPER GI ENDOSCOPY (WRV U 2.09) Peptic stricture of esophagus documented as of this encounter Procedures Procedure Name Priority Date/Time Associated Diagnosis Comments FILM LIBRARY STORAGE ONLY MAMMO Routine 01/15/2011 12:00 AM EDT documented in this encounter Results * Film Library- Storage Only Mammo (01/15/2011 12:00 AM EDT) Narrative [facility] - 02/13/2019 8:41 AM EDT This exam is auto-finalizing. It's purpose is for storage only. Ana Gillespie APRN [facility] FILM LIBRARY ORD ERABLES [place], [place] documented in this encounter Visit Diagnoses Not on filedocumented in this encounter Care Teams Antique Clock Repairer Relationship Specialty Start Date End Date David Blue MD [address] [place] [address] PCP - General 04/01/10 02/02/19 documented as of this encounter
--- OUTSIDE RECORDS SUMMARY | 2024-02-29 19:34 | XMS_ITS | Encounter Summary ---
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 Procedures PRO UPPER GI ENDOSCOPY, DIAGNOSTIC PRO COLONOSCOPY, DIAGNOSTIC EGD, UPPER GI ENDOSCOPY Referral ID Status Reason Start Date Expiration Date Visits Re quested Visits Authorized [id number] 1 1 Encounter Details Date Type Department Care Team (Late st Contact Info) Description 03/20/2016 11:24 AM EST Anesthesia [place] [address] Calli Jean MD [facility] [place] [address] Geronimo Del Toro, [address] [place] [address] Anesthesia Record Procedure Summary Procedure Name Responsible [...] Calli Jean - 03/21/2016 9:50 AM EST [facility] Department of Anesthesiology Post-procedure Note Patient: Jennifer Irving Procedure Summary Date Anesthesia Start Anesthesia Stop Room / Location 03/20/16 1124 1240 [facility] ENDO 3 / [facility] Procedure Diagnosis Surgeon Responsible Provider EGD WITH BIOPSY (N/A Trunk); COLONOSCOPY FLEXIBLE, WITH BX (N/A Trunk) (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 Pro upper gi endoscopy, biopsy N/A 04/03/2014 UPPER GASTROINTESTINAL ENDOSCOPY,WITH BIOPSY SINGLE OR MULTIPLE performed by David Dejesus MDat [facility] Social History Substance Use Topics ??? [...] risks discussed with patient. Plan discussed with BREEDER HEN SERVICE TECHNICIAN. PAT Staff Note documented in this encounter Plan of Treatment Upcoming Encounters Date Type Department Care Team (Late st Contact Info) Description 03/10/2024 4:00 PM EDT Office Visit Cardiology at [address] [address] Milagros Hernandez MD [facility] [place] [address] Scheduled Procedures Name Priority Associated Diagnoses Date/Ti [...] r documented in this encounter Care Teams Chair And Couch Maker Relationship Specialty Start Date End Date David Blue MD [address] [place] [address] PCP - General 04/01/10 02/02/19 documented as of this encounter
--- OUTSIDE RECORDS SUMMARY | 2024-02-29 19:34 | XMS_ITS | Encounter Summary ---
[place] [address] Care Team Providers Care Food Stand Manager Name Role Phone David Blue MD Primary Care Provider [phone] Reason for Visit * Reason Onset Date Comments Prior Authorization 12/17/2014 Encounter Details Date Type Department Care Team (Late st Contact Info) Description 12/17/2014 Telephone [place] [phone] Radha Urena Prior Authorization Social History Tobacco [...] for request: TYPE II DM Health plan[place] Authorizing patient support representative name: BRYANT Faxed to health plan on: 12/17/14 Health plan decision: APPROVED Quantity approved: 4 FOR 30 DAYS Authorization number: [id number] Start date: 12/20/14 End date: 12/21/15 Patient notified? Pharmacy notified? documented in this encounter Plan of Treatment Upcoming Encounters Date Type Department Care Team (Late st Contact Info) Description 03/10/2024 4:00 PM EDT Office Visit Cardiology at [address] [address] Milagros Hernandez MD [facility] [place] [address] Scheduled Procedures Name Priority Associated Diagnoses Date/Ti me EGD, UPPER GI ENDOSCOPY (WRV U 2.09) Peptic stricture of esophagus documented as of this encounter Visit Diagnoses Not on filedocumented in this encounter Care Teams Food Stand Manager Relationship Specialty Start Date End Date David Blue MD [address] [place] [address] PCP - General 04/01/10 02/02/19 documented as of this encounter
--- OUTSIDE RECORDS SUMMARY | 2024-02-29 19:34 | XMS_ITS | Encounter Summary ---
Author Organization [facility] Address [facility] [place] [address] Care Team Providers Care Marketing Graphics Specialist Name Role Phone David Blue MD Primary Care Provider [phone] Encounter Details Date Type Department Care Team (Latest Contact Info) Description 04/03/2014 10:08 AM EST - 04/03/2014 2:04 PM EST Hospital Encounter Gastroenterology at [facility] [place] [address] David Dejesus MD [facility] [place] [address] Discharge Disposition: Home Social History Tobacco Use [...] - 04/03/2014 12:48 PM EST Please call [phone], before 5pm with problems, questions or concerns, after 5pm call the Hospital at [phone] and ask to speak to the Senior Information Systems Architect manager international and the black mill operator will contactthat person for you. Discharge [...] Everywhere. * EGD (UPPER ENDOSCOPY) : POST-OP ([place]) documented in this encounter Medications at Time [...] PM EDT Office Visit Cardiology at [address] [address] Milagros Hernandez MD [facility] [place] [address] Scheduled Procedures Name Priority Associated Diagnoses Date/Ti hi EGD, UPPER GI ENDOSCOPY (WRV U 2.09) [...] (04/03/2014 12:37 PM EST) Final Diagnosis ? [facility] ? Provider: ?? DAVID DEJESUS ??Pt. Name: ?? ISHAN IRVING ? Acc #: ?[id number] ?Pt. ? Col Date: ?? 04/03/2014 ?/Sex: [...] - Labeled/Fixativ e: Duodenal bulb, formalin. ? [facility] ? Provider: ?? DAVID DEJESUS ??Pt. Name: ?? ISHAN IRVING ? Acc #: ?[id number] ?Pt. ? Col Date: ?? 04/03/2014 ?/Sex: [...] Diagnosis: ? Same 04/04/2014 9:11 PM EST [facility] GI Biopsy 04/03/2014 12:3 7 PM EST 04/03/2014 12:37 PM EST GI Biopsy 04/03/2014 12:3 7 PM EST 04/03/2014 12:37 PM EST GI Biopsy 04/03/2014 12:3 7 PM EST 04/03/2014 12:37 PM EST GI Biopsy 04/03/2014 12:3 7 PM EST 04/03/2014 12:37 PM EST David Dejesus MD PATHOLOGY/CYTOLOGY ORDERABLES Performing Organization Address City/[facility]/ZIP Co de Phone Number DARCY [facility] [place] [address] * Specimen to Pathology (surgical or derm) (04/03/2014 12:37 PM EST) AP Specimen 04/03/2014 12:3 7 PM EST 04/03/2014 12:37 PM EST Narrative DARCY OQUENDOIUM - 04/03/2014 12:37 PM EST Specimen requisition ordered. ??Separate Pathology report to follow David Dejesus MD PATHOLOGY/CYTOLOGY ORDERABLES Performing Organization Address City/[facility] Co de Phone Number [facility] * Specimen to Pathology (surgical or derm) (04/03/2014 12:37 PM EST) AP Specimen 04/03/2014 12:3 7 PM EST 04/03/2014 12:37 PM EST Narrative [facility] - 04/03/2014 12:37 PM EST Specimen requisition ordered. ??Separate Pathology report to follow David Dejesus MD PATHOLOGY/CYTOLOGY ORDERABLES [facility] * Specimen to Pathology (surgical or derm) (04/03/2014 12:37 PM EST) AP Specimen 04/03/2014 12:3 7 PM EST 04/03/2014 12:37 PM EST Narrative CERNER AZRAIUM - 04/03/2014 12:37 PM EST Specimen requisition ordered. ??Separate Pathology report to follow David Dejesus MD PATHOLOGY/CYTOLOGY ORDERABLES Performing Organization Address [facility] Co de Phone Number DARCY BARNETT * Specimen to Pathology (surgical or derm) (04/03/2014 12:37 PM EST) AP Specimen 04/03/2014 12:3 7 PM EST 04/03/2014 12:37 PM EST Narrative DARCY BARNETT - 04/03/2014 12:37 PM EST Specimen requisition ordered. ??Separate Pathology report to follow David Dejesus MD PATHOLOGY/CYTOLOGY ORDERABLES Performing Organization Address [facility] Co de Phone Number DARCY BARNETT * UPPER GI ENDOSCOPY (04/03/2014 12:06 PM EST) UPPER GI ENDOSCOPY [facility] Endoscopy Patient Name: Ishan Irving ? Procedure Date: 04/03/2014 12:06 PM ? [facility]: [id number] ? Date of : 1960 ? Age: 53 ? Order #: [id number] ? Procedure: ? Upper GI endoscopy Indications: [...] EST David Blue MD GENERAL SURGICAL ORD [facility] Performing Organization Address City/State/[facility] Co de Phone Number PROVATION documented in [...] RN) documented in this encounter Care Teams Marketing Graphics Specialist Relationship Specialty Start Date End Date David Blue MD [address] [place] [address] PCP - General 04/01/10 02/02/19 documented as of this encounter
--- OUTSIDE RECORDS SUMMARY | 2024-02-29 19:34 | XMS_ITS | Encounter Summary ---
[place] [address] Care Team Providers Care Signal Person Name Role Phone David Blue MD Primary Care Provider + [phone] Reason for Visit * Reason Onset Date Comments Prior Authorization 09/27/2018 Encounter Details Date Type Department Care Team (Late st Contact Info) Description 09/27/2018 [place] [address] Francoise Vides CMA GASTROENTEROLOGY DEPT Prior Authorization [...] Prior Authorization 4L Gastroenterology / [place] [address] ?? Subscriber Insurance: [place] Medicaid ?? Phone: . Fax: ? Physician: David Dejesus ? Return ?? Pharmacy: [facility] ? Medication Requested: pantoprazole ?? Strength: 40 mg Frequency: BID ?? Disp.: 180 Refills: 3 ?? Currently taking: no ?? Diagnosis for this medication: Farrell's w/ dysplasia, and GERD ?? ICD-10 code: ?? Prior medications trialed in this patient: Pantoprazole QD, esomperazole, and omeprazole ? Medication: Outcome/Adverse Reactions: treatment failure ?? Decision: approved ?? Tracking number/Case number/Reference number: [id number] ?? Effective date: ?? Start: End: 09/28/2019 documented in this encounter Plan of Treatment Upcoming Encounters Date Type Department Care Team (Late st Contact Info) Description 03/10/2024 4:00 PM EDT Office Visit Cardiology at [address] [address] Milagros Hernandez MD [facility] [place] [address] Scheduled Procedures Name Priority Associated Diagnoses Date/Ti me EGD, UPPER GI ENDOSCOPY (WRV U 2.09) Peptic stricture of esophagus documented as of this encounter Visit Diagnoses Not on filedocumented in this encounter Care Teams Signal Person Relationship Specialty Start Date End Date David Blue MD [address] [place] [address] PCP - General 04/01/10 02/02/19 documented as of this encounter
--- OUTSIDE RECORDS SUMMARY | 2024-02-29 19:34 | XMS_ITS | Encounter Summary ---
Author Organization [facility] [place] [address] Care Team Providers Care Screening Nurse Name Role Phone David Blue MD Primary Care Provider [phone] Encounter Details Date Type Department Care Team (Late st Contact Info) Description 04/03/2014 11:30 AM EST - 04/03/2014 12:00 PM EST [facility] [place] [address] David Dejesus MD [facility] [place] [address] EGD, UPPER GI ENDOSCOPY (WRVU 2.09) Social [...] - 04/03/2014 12:48 PM EST Please call [phone], before 5pm with problems, questions or concerns, after 5pm call the Hospital at [phone] and ask to speak to the Mat Machine Operator cardiac/vascular sonographer and the injection moulding machine operator will contactthat person for you. Discharge [...] Everywhere. * EGD (UPPER ENDOSCOPY) : POST-OP ([place]) documented in this encounter Medications at Time [...] PM EDT Office Visit Cardiology at [address] [address] Milagros Hernandez MD [facility] [place] [address] Scheduled Procedures Name Priority Associated Diagnoses Date/Ti [...] (04/03/2014 12:37 PM EST) Final Diagnosis ? [facility] ? Provider: ?? DAVID DEJESUS ??Pt. Name: ?? JENNIFER IRVING ? Acc #: ?[id number] ?Pt. ? Col Date: ?? 04/03/2014 ?/Sex: [...] - Labeled/Fixativ e: Duodenal bulb, formalin. ? [facility] ? Provider: ?? DAVID DEJESUS ??Pt. Name: ?? JENNIFER IRVING ? Acc #: ?[id number] ?Pt. ? Col Date: ?? 04/03/2014 ?/Sex: [...] Diagnosis: ? Same 04/04/2014 9:11 PM EST [facility] GI Biopsy 04/03/2014 12:3 7 PM EST 04/03/2014 12:37 PM EST GI Biopsy 04/03/2014 12:3 7 PM EST 04/03/2014 12:37 PM EST GI Biopsy 04/03/2014 12:3 7 PM EST 04/03/2014 12:37 PM EST GI Biopsy 04/03/2014 12:3 7 PM EST 04/03/2014 12:37 PM EST David Dejesus MD PATHOLOGY/CYTOLOGY ORDERABLES Performing Organization Address City/[facility] Co de Phone Number [facility] [place] [address] * Specimen to Pathology (surgical or derm) (04/03/2014 12:37 PM EST) AP Specimen 04/03/2014 12:3 7 PM EST 04/03/2014 12:37 PM EST Narrative CERNER GALINDOENNIUM - 04/03/2014 12:37 PM EST Specimen requisition ordered. ??Separate Pathology report to follow David Dejesus MD PATHOLOGY/CYTOLOGY ORDERABLES Performing Organization Address [facility] Co de Phone Number DARCY BARNETT * Specimen to Pathology (surgical or derm) (04/03/2014 12:37 PM EST) AP Specimen 04/03/2014 12:3 7 PM EST 04/03/2014 12:37 PM EST Narrative CERNER MILLENNIUM - 04/03/2014 12:37 PM EST Specimen requisition ordered. ??Separate Pathology report to follow David Dejesus MD PATHOLOGY/CYTOLOGY ORDERABLES Performing Organization Address City/[facility]/ZIP Co de Phone Number [facility] * Specimen to Pathology (surgical or derm) (04/03/2014 12:37 PM EST) AP Specimen 04/03/2014 12:3 7 PM EST 04/03/2014 12:37 PM EST Narrative CERNER MILLENNIUM - 04/03/2014 12:37 PM EST Specimen requisition ordered. ??Separate Pathology report to follow David Dejesus MD PATHOLOGY/CYTOLOGY ORDERABLES Performing Organization Address [facility] Co de Phone Number DARCY BARNETT * Specimen to Pathology (surgical or derm) (04/03/2014 12:37 PM EST) AP Specimen 04/03/2014 12:3 7 PM EST 04/03/2014 12:37 PM EST Narrative DARCY BARNETT - 04/03/2014 12:37 PM EST Specimen requisition ordered. ??Separate Pathology report to follow David Dejesus MD PATHOLOGY/CYTOLOGY ORDERABLES Performing Organization Address [facility] Co de Phone Number DARCY BARNETT * UPPER GI ENDOSCOPY (04/03/2014 12:06 PM EST) UPPER GI ENDOSCOPY [facility] Endoscopy Patient Name: Jennifer Irving ? Procedure Date: 04/03/2014 12:06 PM ? [facility]: [id number] ? Date of : 1960 ? Age: 53 ? Order #: [id number] ? Procedure: ? Upper GI endoscopy Indications: [...] Routine 1212 (Given - Provid er: Elizabeth Ceils RN)1213 (Given - Provider: Elizabeth Celis RN)1218 (Given - Provider: Elizabeth Celis RN) documented in this encounter Care Teams Screening Nurse Relationship Specialty Start Date End Date David Blue MD [address] [place] [address] PCP - General 04/01/10 02/02/19 documented as of this encounter
--- OUTSIDE RECORDS SUMMARY | 2024-02-29 19:34 | XMS_ITS | Encounter Summary ---
Author Organization [facility] Address [facility] [place] [address] Care Team Providers Care Developer Architect Name Role Phone David Blue MD Primary Care Provider [phone] Reason for Visit * Reason Onset Date Comments Medication Refill 09/26/2018 Encounter Details Date Type Department Care Team (Late st Contact Info) Description 09/26/2018 Refill [place] [phone] Francoise Vides CMA GASTROENTEROLOGY DEPT Social History [...] PM EDT Office Visit Cardiology at [address] [phone] Milagros Hernandez MD [facility] [place] [address] Scheduled Procedures Name Priority Associated Diagnoses Date/Ti me EGD, UPPER GI ENDOSCOPY (WRV U 2.09) Peptic stricture of esophagus documented as of this encounter Visit Diagnoses Not on filedocumented in this encounter Care Teams Developer Architect Relationship Specialty Start Date End Date David Blue MD [address] [place] [address] PCP - General 04/01/10 02/02/19 documented as of this encounter
--- OUTSIDE RECORDS SUMMARY | 2024-02-29 19:34 | XMS_ITS | Encounter Summary ---
[place] [address] Care Team Providers Care Deployment Manager Name Role Phone David Blue MD Primary Care Provider [phone] Reason for Visit * Reason Onset Date Comments Prior Authorization 02/26/2016 Encounter Details Date Type Department Care Team (Late st Contact Info) Description 02/26/2016 Telephone [place] [address] Francoise Vides CMA GASTROENTEROLOGY DEPT Prior Authorization [...] Prior Authorization 4L Gastroenterology / [place] [address] Subscriber Insurance: [place] medicaid Physician: David Dejesus Return Pharmacy: [facility] [...] lapse in usage. Tracking number/Case number/Reference number: [id number] Effective date: Start: End: documented in this encounter Plan of Treatment Upcoming Encounters Date Type Department Care Team (Late st Contact Info) Description 03/10/2024 4:00 PM EDT Office Visit Cardiology at [address] [address] Milagros Hernandez MD [facility] [place] [address] Scheduled Procedures Name Priority Associated Diagnoses Date/Ti me EGD, UPPER GI ENDOSCOPY (WRV U 2.09) Peptic stricture of esophagus documented as of this encounter Visit Diagnoses Not on filedocumented in this encounter Care Teams Deployment Manager Relationship Specialty Start Date End Date David Blue MD [address] [place] [address] PCP - General 04/01/10 02/02/19 documented as of this encounter
--- OUTSIDE RECORDS SUMMARY | 2024-02-29 19:34 | XMS_ITS | Encounter Summary ---
Author Organization [facility] [place] [address] Care Team Providers Care Scalemaker Name Role Phone David Blue MD Primary Care Provider [phone] Encounter Details Date Type Department Care Team (Late st Contact Info) Description 10/12/2018 Telephone [place] [phone] Mariela Jordan Social History Tobacco Use Types [...] - 10/12/2018 12:11 PM EDT Jennifer Irving [id number] Diagnosis: Farrell's Esophagus 1. Have you ever [...] [] YES [x] NO If Yes send [employer] message to LE ENDO DEVICE CHECK 4. [...] NO 11. You must have a responsible alliance party stay at the facility during your [...] PM EDT Office Visit Cardiology at [address] [address] Milagros Hernandez MD [facility] [place] [address] Scheduled Procedures Name Priority Associated Diagnoses Date/Ti me EGD, UPPER GI ENDOSCOPY (WRV U 2.09) Peptic stricture of esophagus documented as of this encounter Visit Diagnoses Not on filedocumented in this encounter Care Teams Scalemaker Relationship Specialty Start Date End Date David Blue MD [address] [place] [address] PCP - General 04/01/10 02/02/19 documented as of this encounter
--- OUTSIDE RECORDS SUMMARY | 2024-02-29 19:34 | XMS_ITS | Encounter Summary ---
Author Organization [facility] Address [facility] [place] [address] Care Team Providers Care Solderer Torch Name Role Phone David Blue MD Primary Care Provider [phone] Encounter Details Date Type Department Care Team (Late st Contact Info) Description 12/12/2012 Ancillary Procedure Radiology Library at [facility] [place] [address] Ana Gillespie APRN [address] [place] [address] Social History Tobacco Use Types [...] PM EDT Office Visit Cardiology at [address] [address] Milagros Hernandez MD [facility] DR [place] [address] Scheduled Procedures Name Priority Associated Diagnoses Date/Ti me EGD, UPPER GI ENDOSCOPY (WRV U 2.09) Peptic stricture of esophagus documented as of this encounter Procedures Procedure Name Priority Date/Time Associated Diagnosis Comments FILM LIBRARY STORAGE ONLY MAMMO Routine 12/12/2012 12:00 AM EDT documented in this encounter Results * Film Library- Storage Only Mammo (12/12/2012 12:00 AM EDT) Narrative [facility] - 02/13/2019 8:42 AM EDT This exam is auto-finalizing. It's purpose is for storage only. Ana Gillespie APRN [facility]MM[facility]ison FILM LIBRARY ORD ERABLES [place], [place] documented in this encounter Visit Diagnoses Not on filedocumented in this encounter Care Teams Solderer Torch Relationship Specialty Start Date End Date David Blue MD [address] [place] [address] PCP - General 04/01/10 02/02/19 documented as of this encounter
--- OUTSIDE RECORDS SUMMARY | 2024-02-29 19:34 | XMS_ITS | Encounter Summary ---
[place] [address] Care Team Providers Care Corporate Driver Name Role Phone David Blue MD Primary Care Provider [phone] Reason for Visit * Reason Onset Date Comments Weight Management 04/19/2013 Encounter Details Date Type Department Care Team (Late st Contact Info) Description 04/19/2013 Telephone Pediatric & Adolescent Medicine at [address] [address] Guanakito Cronin MD [address] [place] [address] Weight Management Social History Tobacco Use Types [...] PM EDT Office Visit Cardiology at [address] [address] Milagros Hernandez MD [facility] [place] [address] Scheduled Procedures Name Priority Associated Diagnoses Date/Ti me EGD, UPPER GI ENDOSCOPY (WRV U 2.09) Peptic stricture of esophagus documented as of this encounter Visit Diagnoses Not on filedocumented in this encounter Care Teams Corporate Driver Relationship Specialty Start Date End Date David Blue MD [address] [place] [address] PCP - General 04/01/10 02/02/19 documented as of this encounter
--- OUTSIDE RECORDS SUMMARY | 2024-02-29 19:34 | XMS_ITS | Encounter Summary ---
[place] [address] Care Team Providers Care Culvert Installer Name Role Phone David Blue MD Primary Care Provider [phone] Reason for Visit * Reason Onset Date Comments Prior Authorization 05/20/2018 Encounter Details Date Type Department Care Team (Late st Contact Info) Description 05/20/2018 Telephone [place] [address] Yoko Marroquin CCMA Prior Authorization Social History [...] Prior Authorization 4L Gastroenterology / [place] [address] Subscriber Insurance: [place] Medicaid Phone: Fax: Physician: David Dejesus Return Pharmacy: [facility] Fax: Medication Requested: Pantoprazole Strength: 40mg Frequency: Twice Daily Disp.: 180 Refills: 3 Currently taking: Diagnosis for this medication: GERD ICD-10 code: K21.9 Prior medications trialed in this patient: Esomeprazole Medication: Outcome/Adverse Reactions: Treatment Failure Decision: PA not required Tracking number/Case number/Reference number: [id number] Effective date: Start: End: documented in this encounter Plan of Treatment Upcoming Encounters Date Type Department Care Team (Late st Contact Info) Description 03/10/2024 4:00 PM EDT Office Visit Cardiology at [address] [address] Milagros Hernandez MD [facility] [place] [address] Scheduled Procedures Name Priority Associated Diagnoses Date/Ti me EGD, UPPER GI ENDOSCOPY (WRV U 2.09) Peptic stricture of esophagus documented as of this encounter Visit Diagnoses Not on filedocumented in this encounter Care Teams Culvert Installer Relationship Specialty Start Date End Date David Blue MD [address] [place] [address] PCP - General 04/01/10 02/02/19 documented as of this encounter
--- OUTSIDE RECORDS SUMMARY | 2024-02-29 19:34 | XMS_ITS | Encounter Summary ---
Author Organization [facility] Address [facility] [place] [address] Care Team Providers Care Summer Internship Name Role Phone David Blue MD Primary Care Provider [phone] Encounter Details Date Type Department Care Team (Late st Contact Info) Description 03/31/2016 Telephone [place] [phone] Francoise Vides CMA GASTROENTEROLOGY DEPT Social History [...] PM EDT Office Visit Cardiology at [address] [phone] Milagros Hernandez MD [facility] [place] [address] Scheduled Procedures Name Priority Associated Diagnoses Date/Ti me EGD, UPPER GI ENDOSCOPY (WRV U 2.09) Peptic stricture of esophagus documented as of this encounter Visit Diagnoses Not on filedocumented in this encounter Care Teams Summer Internship Relationship Specialty Start Date End Date David Blue MD [address] [place] [address] PCP - General 04/01/10 02/02/19 documented as of this encounter
--- OUTSIDE RECORDS SUMMARY | 2024-02-29 19:34 | XMS_ITS | Encounter Summary ---
Author Organization [facility] Address [facility] [place] [address] Care Team Providers Care Negative Retoucher Name Role Phone David Blue MD Primary Care Provider [phone] Encounter Details Date Type Department Care Team (Late st Contact Info) Description 03/02/2018 Orders [place] [phone] David Dejesus MD [facility] [place] [address] Breast cancer screening Social History Tobacco Use [...] PM EDT Office Visit Cardiology at [address] [address] Milagros Hernandez MD [facility] [place] [address] Scheduled Procedures Name Priority Associated Diagnoses Date/Ti me EGD, UPPER GI ENDOSCOPY (WRV U 2.09) Peptic stricture of esophagus documented as of this encounter Visit Diagnoses Diagnosis Breast cancer screening Breast screening, unspecified documented in this encounter Care Teams Negative Retoucher Relationship Specialty Start Date End Date David Blue MD [address] [place] [address] PCP - General 04/01/10 02/02/19 documented as of this encounter
--- OUTSIDE RECORDS SUMMARY | 2024-02-29 19:34 | XMS_ITS | Encounter Summary ---
Author Organization [facility] Address [facility] [place] [address] Care Team Providers Care Steam Blocker Name Role Phone David Blue MD Primary Care Provider [phone] Encounter Details Date Type Department Care Team (Late st Contact Info) Description 06/22/2018 Telephone [place] [address] Erin Lynn Social History Tobacco Use Types [...] PM EDT Office Visit Cardiology at [address] [address] Milagros Hernandez MD [facility] [place] [address] Scheduled Procedures Name Priority Associated Diagnoses Date/Ti me EGD, UPPER GI ENDOSCOPY (WRV U 2.09) Peptic stricture of esophagus documented as of this encounter Visit Diagnoses Not on filedocumented in this encounter Care Teams Steam Blocker Relationship Specialty Start Date End Date David Blue MD [address] [place] [address] PCP - General 04/01/10 02/02/19 documented as of this encounter
--- OUTSIDE RECORDS SUMMARY | 2024-02-29 19:34 | XMS_ITS | Encounter Summary ---
Author Organization [facility] Address [facility] [place] [address] Care Team Providers Care Workforce Manager Name Role Phone David Blue MD Primary Care Provider [phone] Reason for Referral * Consultation (Routine) - Closed Specialty Diagnoses / Procedures Referred By Esperanza rodríguez Referred To Contact Endocrinology Diagnoses Diabetes mellitus type 2, uncontrolled Dean Caban MD [facility] [place] [address] Yin Rehman LD [facility] DR END[place] [address] Referral ID Status Reason Start Date Expiration Date V isits Requested Visits Authorized [id number] Closed Continuity of Care 12/13/2014 12/13/2015 3 3 Reason for Visit * Reason Comments Diabetes Encounter Details Date Type Department Care Team (Late st Contact Info) Description 12/13/2014 1:40 PM EDT Office Visit Endocrinology at [place] [phone] Moustapha Agosto MD [facility] [place] [address] Diabetes mellitus type 2, uncontrolled Discharge Disposition: [...] with gestational diabetes 12 years ago and [id number] five years ago. The patient reports that [...] mg BID - Will coordinate visit with Offset Press Assistant at next visit - Complication Monitoring: - [...] PM EDT Office Visit Cardiology at [address] [address] Milagros Hernandez MD [facility] [address] Scheduled Procedures Name Priority Associated Diagnoses Date/Ti [...] / Creatinin Ratio, Urine 91 mcg/mg Cr [facility] Comment: Reference Range* Random collection (mcg/mg creatinine) [...] In Lab Moustapha Agosto MD URINE ORDERABLES [facility] * (ABNORMAL) Hemoglobin A1c (12/13/2014 11:56 AM EDT) Hemoglobin A1c 10.6(H) 4.3 - 5.6 % [facility] Comment: Reference Range: 4.3 - 5.6% [...] Mellitus, Diabetes Care 2013; 36: Suppl. 1, P17-88 Estimated Average Glucose 258 mg/dL [facility] Comment: eAG equivalents for HbA1c percentages: HbA1c(%) ?eAG(mg/dL) 6.0 ?126 6.5 ?140 7.0 ?154 7.5 ?169 8.0 ?183 8.5 ?197 9.0 ?212 9.5 ?226 10.0 ? 240 Limitations: The eAG calculation has not been validated on women, individuals below 18 years old and above 70 years old, and individuals with hemoglobinopathies. Additional resources are available on the ADA website: http://One[employer] Water.Compact Particle Acceleration/DHMCadacalc Lucio BIGGS, Jeannie J, Edwin R, et al. ??Translating the A1C assay into estimated average glucose values. ??Diabetes Care 2008:31(8):9649-5045. Blood specimen (specimen) 12/13/2014 11:56 AM EDT 12/13/2014 12:19 PM EDT Narrative Resulting Agency Comment Spec In Lab Moustapha Agosto MD CHEMISTRY ORDERABLES Performing Organization Address City/State/[facility] Co ca Phone Number [facility] documented in this encounter Visit Diagnoses Diagnosis Diabetes mellitus type 2, uncontrolled Type II or unspecified type diabetes mellitus without mention of complication, uncontrolled documented in this encounter Care Teams Workforce Manager Relationship Specialty Start Date End Date David Blue MD [address] [place] [address] PCP - General 04/01/10 02/02/19 documented as of this encounter
--- OUTSIDE RECORDS SUMMARY | 2024-02-29 19:34 | XMS_ITS | Encounter Summary ---
Author Organization [facility] Address [facility] [place] [address] Care Team Providers Care Radiocommunications Technician Name Role Phone David Blue MD Primary Care Provider [phone] Encounter Details Date Type Department Care Team (Late Contact Info) Description 08/05/2017 Orders [place] [phone] David Dejesus MD [facility] [place] [address] Social History Tobacco Use Types Packs/Day Years [...] PM EDT Office Visit Cardiology at [address] [phone] Milagros Hernandez MD [facility] [place] [address] Scheduled Procedures Name Priority Associated Diagnoses Date/Ti me EGD, UPPER GI ENDOSCOPY (WRV U 2.09) Peptic stricture of esophagus documented as of this encounter Visit Diagnoses Not on filedocumented in this encounter Care Teams Radiocommunications Technician Relationship Specialty Start Date End Date David Blue MD [address] [place] [address] PCP - General 04/01/10 02/02/19 documented as of this encounter
--- OUTSIDE RECORDS SUMMARY | 2024-02-29 19:34 | XMS_ITS | Encounter Summary ---
Author Organization [facility] [place] [address] Care Team Providers Care Editor In Chief Newspaper Name Role Phone David Blue MD Primary Care Provider [phone] Encounter Details Date Type Department Care Team (Late st Contact Info) Description 06/28/2018 [place] [address] Erin Lynn Social History Tobacco [...] - 06/28/2018 11:52 AM EST Jennifer Irving [id number] Diagnosis: EGD 1. Have you ever had [...] [] YES [x] NO If Yes send in[employer]ebox Corporation message to [facility] ENDO DEVICE CHECK 4. Are you a [...] PM EDT Office Visit Cardiology at [address] [address] Milagros Hernandez MD [facility] [place] [address] Scheduled Procedures Name Priority Associated Diagnoses Date/Ti me EGD, UPPER GI ENDOSCOPY (WRV U 2.09) Peptic stricture of esophagus documented as of this encounter Visit Diagnoses Not on filedocumented in this encounter Care Teams Editor In Chief Newspaper Relationship Specialty Start Date End Date David Blue MD [address] [place] [address] PCP - General 04/01/10 02/02/19 documented as of this encounter
--- OUTSIDE RECORDS SUMMARY | 2024-02-29 19:34 | XMS_ITS | Encounter Summary ---
Author Organization [facility] Address [facility] [place] [address] Care Team Providers Care Manager Of Creative Services Name Role Phone David Blue MD Primary Care Provider [phone] Encounter Details Date Type Department Care Team (Latest Contact Info) Description 07/02/2014 12:45 PM EST - 07/02/2014 11:59 PM EST Hospital Encounter [place] [address] CLINIC, David Lees MD [address] [place], [place] [address] Discharge Disposition: Home Social History Tobacco Use [...] PM EDT Office Visit Cardiology at [address] [phone] Milagros Hernandez MD [facility] [place] [address] Scheduled Procedures Name Priority Associated Diagnoses Date/Ti [...] to this patient by the breast imaging amberg. Symone Alen Jose COACH MECHANIC IMG MAMMO ORDERAB LES documented in this encounter Visit Diagnoses Not on filedocumented in this encounter Care Teams Manager Of Creative Services Relationship Specialty Start Date End Date David Blue MD [address] [place] [address] PCP - General 04/01/10 02/02/19 documented as of this encounter
--- OUTSIDE RECORDS SUMMARY | 2024-02-29 19:34 | XMS_ITS | Encounter Summary ---
Author Organization [facility] Address [facility] [place] [address] Care Team Providers Care Marine Fisheries Technician Name Role Phone David Blue MD Primary Care Provider [phone] Reason for Referral * Surgical - Closed Specialty Diagnoses / Procedures Referred By Esperanza rodríguez Referred To Contact General Surgery Diagnoses Esophageal reflux David Dejesus MD [facility] GASTROENTEROLOGY [place] [id number] Baljinder Maharaj MD [facility] [place] [address] Referral ID Status Reason Start Date Expiration Date V isits Requested Visits Authorized [id number] Closed Specialty Service Requested 01/16/2014 07/15/2014 1 1 Encounter Details Date Type Department Care Team (Late st Contact Info) Description 01/16/2014 Orders Only [place] [address] David Dejesus MD [facility] [place] [address] Esophageal reflux (Primary Dx) Social History Tobacco [...] PM EDT Office Visit Cardiology at [address] [address] Milagros Hernandez MD [facility] [place] [address] Scheduled Orders Name Type Priority Associated Diagnoses [...] Primary documented in this encounter Care Teams Marine Fisheries Technician Relationship Specialty Start Date End Date David Blue MD [address] [place] [address] PCP - General 04/01/10 02/02/19 documented as of this encounter
--- OUTSIDE RECORDS SUMMARY | 2024-02-29 19:35 | XMS_ITS | Encounter Summary ---
Author Organization Health system Address [address] [place] [address] Care Team Providers Care Epic Willow Specialist Name Role Phone David Blue MD Primary Care Provider Encounter Details Date Type Department Care Team (Late st Contact Info) Description 10/30/[address] [facility] - Maple conversion [address] [place] [address] Sergey Kraus, DO [address] [facility] [address] [place] [address] Social History Tobacco Use Types [...] ? JENNIFER IRVING ? Accession #: ? [id number] ? : ? 1960 (Age: 43) ??F [...] specimen is entirely submitted as (C). ??(Dr. Haney-OFELIA)/[facility] End of Report [facility] 10/30/2003 10/30/2003 14: 43 EDT Sergey Kraus DO PATHOLOGY ORDER BENI [facility] [address] [place] [address] documented in this encounter Visit Diagnoses Not on filedocumented in this encounter Care Teams Epic Willow Specialist Relationship Specialty Start Date End Date David Blue MD [address] [place] [address] PCP - General 07/15/09 documented as of this encounter
--- OUTSIDE RECORDS SUMMARY | 2024-02-29 19:35 | XMS_ITS | Encounter Summary ---
Author Organization [facility] Address [address] [place] [address] Care Team Providers Care Pastoral Worker Name Role Phone David Blue MD Primary Care Provider [phone] Encounter Details Date Type Department Care Team (Late st Contact Info) Description 01/08/2006 Results Only [facility] - Maple conversion [address] [place] [address] Sergey Kraus, DO [address] [facility] ,[address] [place] [address] Social History Tobacco Use Types [...] ? JENNIFER IRVING ? Accession #: ? [id number] ? : ? 1960 (Age: 45) ??F [...] PATHOLOGY ORDER BENI [facility] [address] [place] [address] documented in this encounter Visit Diagnoses Not on filedocumented in this encounter Care Teams Pastoral Worker Relationship Specialty Start Date End Date David Blue MD [address] [place] [address] PCP - General 07/15/09 documented as of this encounter
--- OUTSIDE RECORDS SUMMARY | 2024-02-29 19:35 | XMS_ITS | Encounter Summary ---
Author Organization [facility] Address [address] [place] [address] Care Team Providers Care Molder Labels Name Role Phone David Blue MD Primary Care Provider [phone] Encounter Details Date Type Department Care Team (Late st Contact Info) Description 09/14/2007 Results Only [facility] - Maple conversion [address] [place] [address] Kassidy Villafana FNP [address] [place], [place] [id number] Social History Tobacco Use Types Packs/Day Years [...] ? JENNIFER IRVING ? Accession #: ? [id number] : ? 1960 (Age: 47) ??F ?Collect Date: ? 09/14/2007 Location: ? [facility] ? Receive Date: ? 09/16/2007 Provider: ?KASSIDY VILLAFANA TRANSPORT ASSISTANT Copy to: ? Specimen/Source: ?ThinPrep Pap Test, Cervix/Endocervix, processed on Clinc! ThinPrep Imaging System, with manual evaluation Last [...] Kassidy DUDLEYP PATHOLOGY ORDERABLES Performing Organization Address City/State/[facility] Co de Phone Number [facility] [address] [place] [address] documented in this encounter Visit Diagnoses Not on filedocumented in this encounter Care Teams Molder Labels Relationship Specialty Start Date End Date David Blue MD [address] [place] [address] PCP - General 07/15/09 documented as of this encounter
--- OUTSIDE RECORDS SUMMARY | 2024-02-29 19:35 | XMS_ITS | Encounter Summary ---
Author Organization [facility] Address [address] [place] [address] Care Team Providers Care Truck Technician Name Role Phone David Blue MD Primary Care Provider [phone] Encounter Details Date Type Department Care Team (Late st Contact Info) Description 06/10/2021 Lab Requisition [facility] Pathology & Laboratory Medicine - [facility] [address] [place] [address] Merly Purcell, DO [address] [facility] [address] [place] [address] Encounter for other general examination [...] management options, if applicable. 06/11/2021 13:01 EST [facility] Final Diagnosis A. JEJUNUM, [...] - Consistent with Hyperplastic polyp. 06/11/2021 13:01 [facility] Attestation By the signature below, the attending physician certifies that they have 1) personally conducted a gross and/or microscopic examination of the described specimen(s), and/or personally interpreted the results of laboratory testing of the described specimen(s), and 2) personally rendered or confirmed the above diagnosis. 06/11/2021 13:01 [facility] at [address] Clinical History Anemia, abdominal pain 06/11/2021 13:01 [facility] Gross Description A. [...] N1. ROSLYN EARLY(ASCP) 06/10/2021 19:05 06/11/2021 13:01 [facility] Performing Lab [facility] 06/11/2021 13:01 [facility] Scanned Images 06/11/2021 13:01 [facility] Tissue SPECIMEN FROM [...] Purcell DO PATHOLOGY ORDERABLES Performing Organization Address City/State[facility] Co de Phone Number [facility] [address] [place] [address] documented in this encounter Visit Diagnoses Diagnosis Encounter for other general examination documented in this encounter Care Teams Truck Technician Relationship Specialty Start Date End Date David Blue MD [address] [place] [address] PCP - General 07/15/09 documented as of this encounter
--- OUTSIDE RECORDS SUMMARY | 2024-02-29 19:35 | XMS_ITS | Encounter Summary ---
Author Organization [facility] Address [address] [place] [address] Care Team Providers Care Change Management Lead Name Role Phone David Blue MD Primary Care Provider [phone] Encounter Details Date Type Department Care Team (Late st Contact Info) Description 07/11/2003 Results Only [facility] - Maple conversion [address] [place] [address] Rock Samson MD [address] [place], [place] [address] Social History Tobacco Use Types Packs/Day Years [...] ? JENNIFER IRVING ? Accession #: ? [id number] ? : ? 1960 (Age: 43) ??F ? Collect Date: ? 07/11/2003 ? Location: ? [facility] ? Receive Date: ? 07/11/2003 ? Provider: ROCK SMASON MD Copy to: DAVID BLUE MD ? [...] ?Appendix with no pathologic features. Comment: ? Saxophone Player sections of (A) have been reviewed at the intradepartmental consultation conference, ??A discrepancy between the laterality of the fallopian tube as indicated on the requisition form and the gross impression has been discussed with Dr. Samson' s nursing staff, who indicated that the excised fallopian tube was from the right side. (Dr. Narayan)/[facility] Document reviewed and electronically signed by: [...] A1 ?Anterior cervix A2 ?Posterior cervix A3-A6 ?Saxophone Player sections of the anterior intramural mass A7 ?Anterior endomyometrium A8 ?Full thickness endomyometrium A9 ?Saxophone Player sections ovary and cyst A10 ?Saxophone Player sections fallopian tube and ovary A11 ?Ectocervix Received in formalin labeled Moffett and appendix is a 10.0 cm long x 0.6 cm diameter appendix with a moderate amount of mesoappendix. ??The serosa is unremarkable. ??Serial sectioning reveals a wall thickness that varies from 0.1 to 0.3 cm. ??No fecaliths are identified. ??Four logistics service representative sections are submitted as (B), including the resection margin, en face, and the distal tip, bisected. ?? (Dr. Lopez)/[facility] End of Report [facility] 07/11/2003 07/11/2003 15: 14 EST Rock Samson MD PATHOLOGY ORDERABLES [facility] [address] [place] [address] documented in this encounter Visit Diagnoses Not on filedocumented in this encounter Care Teams Change Management Lead Relationship Specialty Start Date End Date David Blue MD [address] [place] [address] PCP - General 07/15/09 documented as of this encounter
--- OUTSIDE RECORDS SUMMARY | 2024-02-29 19:35 | XMS_ITS | Encounter Summary ---
Author Organization [facility] Address [address] [place] [address] Care Team Providers Care Advertising Consultant Name Role Phone David Blue MD Primary Care Provider [phone] Encounter Details Date Type Department Care Team (Late st Contact Info) Description 07/03/2023 Lab Requisition [facility] Pathology & Laboratory Medicine - [facility] [address] [place], [place] [address] Outr Resulting Lab, Provider Social History Tobacco [...] Antigen Detection Negative Negative 07/03/2023 21:42 EST [facility] Urine URINE / Unknown 07/02/2023 1 8:28 EST 07/03/2023 21:19 EST Provider Outr Resulting Lab MICROBIOLOGY - GENERAL ORDERABLES [facility] [address] [place] [address] documented in this encounter Visit Diagnoses Not on filedocumented in this encounter Care Teams Advertising Consultant Relationship Specialty Start Date End Date David Blue MD [address] [place] [address] PCP - General 07/15/09 documented as of this encounter
--- OUTSIDE RECORDS SUMMARY | 2024-02-29 19:35 | XMS_ITS | Encounter Summary ---
Author Organization [facility] Address [address] [place] [address] Care Team Providers Care Marketing Strategy Manager Name Role Phone Unavailable Primary Care Provider Unavailabl e Encounter Details Date Type Department Care Team (Late st Contact Info) Description 07/12/2009 Results Only [facility] - [facility] ([facility] [address], [place] [address] Sergey Kraus, [address] [facility] [address] [place], [place] [id number] Social History Tobacco Use Types Packs/Day Years [...] ? IRVING, JENNIFER ? Accession #: ? [id number] ? : ? 1960 (Age: 49) ??F [...] and reactive ?? changes. ? Comment: ? French Tutor portions of this case were reviewed at the intradepartmental consultation conference. ??(Dr. Urena)/[facility] ? Document reviewed and electronically signed [...] submitted entirely as (A). ? Received in [employer]'s fixative labelled Jennifer Irving and biopsy ? antrum is a 0.4 x 0.4 x 0.3 cm, kirby-pink soft tissue. ??The specimen is ? submitted entirely as (B). ? Received in [facility]'s fixative labelled Jennifer Irving and #3 biopsy ?? distal esophagus are three kirby-pink soft tissues, each averaging 0.3 x 0.3 x ?? 0.2 cm. ??The specimen is submitted entirely as (C). ? Received in [facility]'s fixative labelled Jennifer Irving and biopsy ? esophagus #4 are four kirby-pink soft tissues ranging in size from 0.2 x 0.2 x ?? 0.2 cm to 0.2 x 0.1 x 0.1 cm. ??The specimen is submitted entirely as (D). ? Received in [employer]'s fixative labelled Irving, Jennifer and biopsy ? proximal esophagus are two kirby-pink soft tissues ranging in size from 0.3 x 0.2 x 0.2 cm to 0.2 x 0.2 x 0.1 cm. ??The specimen is submitted entirely as (E). ? (Dr. Kearney)/[facility] ? End of Report ? DULCE DAVIES 07/12/2009 07/12/2009 19: 11 EST Sergey Kraus DO PATHOLOGY ORDER BENI [facility] [address] [place] [address] documented in this encounter Visit Diagnoses Not on filedocumented in this encounter
--- OUTSIDE RECORDS SUMMARY | 2024-02-29 19:35 | XMS_ITS | Encounter Summary ---
Author Organization [facility] Address [address] [place] [address] Care Team Providers Care Infrastructure Software Engineer Name Role Phone David Blue MD Primary Care Provider [phone] Encounter Details Date Type Department Care Team (Late st Contact Info) Description 08/13/2022 Lab Requisition [facility] Pathology & Laboratory Medicine - [facility] [address] [place], [place] [address] Outr Resulting Lab, Provider Social History Tobacco [...] Antigen Detection Negative Negative 08/13/2022 23:31 EDT [facility] Urine URINE / Unknown 08/12/2022 1 8:12 EDT 08/13/2022 18:30 EDT Provider Outr Resulting Lab MICROBIOLOGY - GENERAL ORDERABLES [facility] [address] [place] [address] documented in this encounter Visit Diagnoses Not on filedocumented in this encounter Care Teams Infrastructure Software Engineer Relationship Specialty Start Date End Date David Blue MD [address] [place] [address] PCP - General 07/15/09 documented as of this encounter
--- OUTSIDE RECORDS SUMMARY | 2024-02-29 19:35 | XMS_ITS | Clinical Summary ---
Author Organization [facility] Address [address] [place] [address] Care Team Providers Care Window Dresser Name Role Phone David Blue MD Primary Care Provider [phone] Social History Tobacco Use Types Packs/Day Years [...] COVID-19 Vaccine (2022-24 season) 2023 Care Teams Window Dresser Relationship Specialty Start Date End Date David Blue MD [address] [place] [address] PCP - General 07/15/09
--- OUTSIDE RECORDS SUMMARY | 2024-02-29 19:35 | XMS_ITS | Encounter Summary ---
Author Organization [facility] Address [address] [place] [address] Care Team Providers Care Corporate Quality Manager Name Role Phone David Blue MD Primary Care Provider [phone] Encounter Details Date Type Department Care Team (Late st Contact Info) Description 11/28/2010 Results Only [facility] Laboratory Services - [facility] ([facility]) [address] [place], [place] [id number] Sergey Kraus, DO [address] [facility] [address] [place], [place] [id number] Social History Tobacco Use Types Packs/Day Years [...] ? IRVING, JENNIFER ? Accession #: ? [id number] ? : ? 1960 (Age: 50) ??F ? Collect Date: ? 11/28/2010 ? Location: ? [facility] ? Receive Date: ? 11/28/2010 ? Provider: SERGEY KRAUS DO ? Copy to: DAVID BLUE MD ? Final Pathologic Diagnosis: ? Colon, 20 cm, polyp, biopsy: ? - Hyperplastic polyp. ??See comment. ? Comment: ? Deeper levels have been examined. Circle Cutting Saw Operator sections of this case have been reviewed [...] submitted in a single cassette. ( ? Josee/[facility] ? End of Report ? DULCE DAVIES 11/28/2010 11/28/2010 18: 52 EDT Sergey Kraus DO PATHOLOGY ORDER BENI [facility] [address] [place] [address] documented in this encounter Visit Diagnoses Not on filedocumented in this encounter Care Teams Corporate Quality Manager Relationship Specialty Start Date End Date David Blue MD [address] [place] [address] PCP - General 07/15/09 documented as of this encounter
--- OUTSIDE RECORDS SUMMARY | 2024-02-29 19:35 | XMS_ITS | Encounter Summary ---
Author Organization [facility] Address [address] [place] [address] Care Team Providers Care Retail Salesperson Name Role Phone David Blue MD Primary Care Provider [phone] Encounter Details Date Type Department Care Team (Late st Contact Info) Description 04/28/2002 Results Only [facility] - Maple conversion [address] [place] [address] [place] [id number] Social History Tobacco Use Types Packs/Day Years [...] ? JENNIFER IRVING ? Accession #: ? [id number] : ? 1960 (Age: 41) ??F ?Collect [...] Lachelle HUNTER PATHOLOGY ORDERABLES Performing Organization Address City/State/[facility] Co de Phone Number DULCE DAVIES [address] [place] [address] documented in this encounter Visit Diagnoses Not on filedocumented in this encounter Care Teams Retail Salesperson Relationship Specialty Start Date End Date David Blue MD [address] [place] [address] PCP - General 07/15/09 documented as of this encounter
--- OUTSIDE RECORDS SUMMARY | 2024-02-29 19:35 | XMS_ITS | Encounter Summary ---
Author Organization [facility] Address [address] [place] [address] Care Team Providers Care Venue Manager Name Role Phone David Blue MD Primary Care Provider [phone] Encounter Details Date Type Department Care Team (Late st Contact Info) Description 07/18/2021 Lab Requisition [facility] Pathology & Laboratory Medicine - [facility] [address] [place] [address] Kavita Viera, DO [address] [place] [address] Encounter for other general examination Social History [...] management options, if applicable. 07/22/2021 10:39 EDT [facility] Final Diagnosis A. STOMACH, ANTRUM, BIOPSY: - Transitional mucosa with reactive (chemical) gastropathy. - Negative for Helicobacter pylori on H&E stained sections. B. ESOPHAGUS, MID-DISTAL, BIOPSY: - Fibrinopurulent exudate. - No intact epithelium identified. 07/22/2021 10:39 [facility] Attestation By the signature below, the attending physician certifies that they have 1) personally conducted a gross and/or microscopic examination of the described specimen(s), and/or personally interpreted the results of laboratory testing of the described specimen(s), and 2) personally rendered or confirmed the above diagnosis. 07/22/2021 10:39 [facility] at 1039 Clinical History Intractable nausea, vomiting 07/22/2021 10:39 [facility] Gross Description A. [...] B1. ROSLYN CACERES(ASCP) 07/21/2021 9:55 07/22/2021 10:39 [facility] Performing Lab [facility] 10:39 [facility] Scanned Images 07/22/2021 10:39 [facility] Tissue ENTIRE ESOPHAGUS / Unknown 07/18/2021 14:10 EST 07/18/2021 22:23 EST Tissue specimen (specimen) ESOPHAGEAL STRUCTURE / Unknown 07/18/2021 14:10 EST 07/18/2021 22:23 EST Kavita Viera DO PATHOLOGY ORDER BENI [facility] [address] [place] [address] documented in this encounter Visit Diagnoses Diagnosis Encounter for other general examination documented in this encounter Care Teams Venue Manager Relationship Specialty Start Date End Date David Blue MD [address] [place] [address] PCP - General 07/15/09 documented as of this encounter
--- OUTSIDE RECORDS SUMMARY | 2024-02-29 19:35 | XMS_ITS | Encounter Summary ---
Author Organization [facility] Address [address] [place] [address] Care Team Providers Care Research Development Director Name Role Phone David Blue MD Primary Care Provider [phone] Encounter Details Date Type Department Care Team (Late st Contact Info) Description 01/06/2023 Lab Requisition [facility] Pathology & Laboratory Medicine - [facility] [address] [place], [place] [address] Outr Resulting Lab, Provider Social History Tobacco [...] 19 - 88 pg/mL 01/06/2023 18:58 EDT [facility] Blood VENOUS BLOOD / Unknown 01/05/2023 11:20 EDT 01/06/2023 17:02 EDT Provider Outr Resulting Lab CHEMISTRY & BLOOD GAS ORDERABLES [facility] [address] [place] [address] documented in this encounter Visit Diagnoses Not on filedocumented in this encounter Care Teams Research Development Director Relationship Specialty Start Date End Date David Blue MD [address] [place] [address] PCP - General 07/15/09 documented as of this encounter
--- OUTSIDE RECORDS SUMMARY | 2024-02-29 19:35 | XMS_ITS | Encounter Summary ---
Author Organization [facility] Address [address] [place] [address] Care Team Providers Care Brusher Machine Name Role Phone David Blue MD Primary Care Provider [phone] Encounter Details Date Type Department Care Team (Late st Contact Info) Description 02/01/2023 Lab Requisition [facility] Pathology & Laboratory Medicine - [facility] [address] [place], [place] [id number] Outr Resulting Lab, Provider Social History Tobacco [...] 11.7 See Note ??g/mL 02/01/2023 17:40 EDT [facility] Comment: NOTE: Reference Ranges: Trough: ??10.0 - 20.0 ug/mL Peak: ??25.0 - 50.0 ug/mL Blood VENOUS BLOOD / Unknown 02/01/2023 7:55 EDT 02/01/2023 17:12 EDT Provider Outr Resulting Lab CHEMISTRY & BLOOD GAS ORDERABLES Performing Organization Address City/State/[facility] Co de Phone Number [facility] [address] [place] [address] documented in this encounter Visit Diagnoses Not on filedocumented in this encounter Care Teams Brusher Machine Relationship Specialty Start Date End Date David Blue MD [address] [place] [address] PCP - General 07/15/09 documented as of this encounter
--- OUTSIDE RECORDS SUMMARY | 2024-02-29 19:35 | XMS_ITS | Referral Summary ---
Author Organization [facility] Address [address] [place] [address] Care Team Providers Care Associate Attorney Name Role Phone David Blue MD Primary Care Provider [phone] Social History Tobacco Use Types Packs/Day Years Used Date Smoking Tobacco: Never Assessed Sex and Gender Information Value Date Recorded Sex Assigned at Not on file Gender Identity Not on file Sexual Orientation Not on file Plan of Treatment Not on file Care Teams Associate Attorney Relationship Specialty Start Date End Date David Blue MD [address] [place] [address] PCP - General 07/15/09
--- OUTSIDE RECORDS SUMMARY | 2024-02-29 19:35 | XMS_ITS | Encounter Summary ---
Author Organization [facility] [place] [address] Care Team Providers Care Manager Facility Name Role Phone Unavailable Primary Care Provider Unavailabl e Encounter Details Date Type Department Care Team (Late st Contact Info) Description 03/01/2009 Ancillary Procedure Radiology Library at [facility] [place] [address] Ana Gillespie APRN [address] [place] [address] Social History Tobacco Use Types Packs/Day Years [...] PM EDT Office Visit Cardiology at [address] [place] [address] Milagros Hernandez MD [facility] [place] [address] Scheduled Procedures Name Priority Associated Diagnoses Date/Ti me EGD, UPPER GI ENDOSCOPY (WRV U 2.09) Peptic stricture of esophagus documented as of this encounter Procedures Procedure Name Priority Date/Time Associated Diagnosis Comments FILM LIBRARY STORAGE ONLY MAMMO Routine 03/01/2009 12:00 AM EDT documented in this encounter Results * Film Library- Storage Only Mammo (03/01/2009 12:00 AM EDT) Narrative [facility] - 02/13/2019 8:43 AM EDT This exam is auto-finalizing. It's purpose is for storage only. Ana Gillespie APRN [facility] FILM LIBRARY ORD ERABLES [facility] [place] documented in this encounter Visit Diagnoses Not on filedocumented in this encounter
--- OUTSIDE RECORDS SUMMARY | 2024-02-29 19:35 | XMS_ITS | Encounter Summary ---
Author Organization [facility] Address [address] [place] [address] Care Team Providers Care Lab Aide Name Role Phone David Blue MD Primary Care Provider Encounter Details Date Type Department Care Team (Late st Contact Info) Description 05/08/2003 Results Only [facility] - Maple conversion [address] [place] [address] Rock Samson MD [address] [place], [place] [address] Social History Tobacco Use Types Packs/Day Years [...] Samson MD PATHOLOGY ORDERABLES Performing Organization Address City/State/[facility] Co de Phone Number DULCE DAVIES [address] [place] [address] documented in this encounter Visit Diagnoses Not on filedocumented in this encounter Care Teams Lab Aide Relationship Specialty Start Date End Date David Blue MD [address] [place] [address] PCP - General 07/15/09 documented as of this encounter
--- OUTSIDE RECORDS SUMMARY | 2024-02-29 19:35 | XMS_ITS | Encounter Summary ---
Author Organization [facility] Address [address] [place] [address] Care Team Providers Care Conservation Of Resources Commissioner Name Role Phone David Blue MD Primary Care Provider [phone] Encounter Details Date Type Department Care Team (Late st Contact Info) Description 03/06/2021 Lab Requisition [facility] Pathology & Laboratory Medicine - [facility] [address] [place], [place] [address] Outr Resulting Lab, Provider Social History Tobacco [...] Ag Negative Negative 03/07/20 10:41 EDT [facility] Hep B Surface Ab, Quantitative <3.1 See Note mIU/mL 03/07/2021 10:41 [facility] Comment: Reference Range for Hep B Surface Ab, Quant: Positive: >= 10.0 mIU/mL Negative: ??< 10.0 mIU/mL Patient is presumed to not be immune to infection with Hepatitis B Virus. Hep B Surface Ab, Qualitative Negative See Note 03/07/2021 10:41 T [facility] Comment: Reference Range for Hep B Surface Ab, Qual: Unvaccinated: ??Negative Vaccinated: ??Positive Hepatitis B Core Ab, Total Negative Negative 03/07/2021 10:41 EDT [facility] Hep C Antibody Negative Negative 03/07/2021 10:41 EDT [facility] Blood VENOUS BLOOD / Unknown 03/06/2021 7:10 EDT 03/06/2021 16:38 EDT Provider Outr Resulting Lab CHEMISTRY & BLOOD GAS ORDERABLES [facility] [address] [place] [address] documented in this encounter Visit Diagnoses Not on filedocumented in this encounter Care Teams Conservation Of Resources Commissioner Relationship Specialty Start Date End Date David Blue MD [address] [place] [address] PCP - General 07/15/09 documented as of this encounter
--- OUTSIDE RECORDS SUMMARY | 2024-02-29 19:35 | XMS_ITS | Encounter Summary ---
Author Organization [facility] Address [address] [place] [address] Care Team Providers Care Director Of Land Acquisition Name Role Phone David Blue MD Primary Care Provider [phone] Encounter Details Date Type Department Care Team (Late st Contact Info) Description 12/23/2000 Results Only [facility] - Maple conversion [address] [place] [address] Rock Samson MD [address] [place], [place] [address] Social History Tobacco Use Types Packs/Day Years [...] ? JENNIFER IRVING ? Accession #: ? [id number] : ? 1960 (Age: 40) ??F ?Collect Date: ? 12/23/2000 Location: ? [facility] ? Receive Date: ? 12/24/2000 Provider: ?ROCK SAMSON MD Copy to: ? Specimen/Source: ?ThinPrep Pap Test, Cervix/Endocervix Last Menstrual Period: ? 12/02/00 ? SPECIMEN ADEQUACY ? Satisfactory for evaluation. GENERAL CATEGORIZATION ? Within Normal Limits ? Document reviewed and electronically signed by: ? ROCIO Pukcett(ASCP) ? Report Date: ??12/29/2000 08:42 End of Report DULCE DAVIES 12/23/2000 12/24/2000 Rock Samson MD PATHOLOGY ORDERABLES Performing Organization Address City/State/[facility] Co de Phone Number [facility] [address] [place] [address] documented in this encounter Visit Diagnoses Not on filedocumented in this encounter Care Teams Director Of Land Acquisition Relationship Specialty Start Date End Date David Blue MD [address] [place] [address] PCP - General 07/15/09 documented as of this encounter
--- NOTE | 2024-02-29 19:44 | W.PM.HP.N ---
Date of service: 02/29/24 Time of Service: 19:44 Assessment and Plan Assessment and plan (1) HFrEF (heart failure with reduced ejection fraction): Status: Chronic Assessment and plan: Stable at this time. Patient is cleared for surgery (2) Bronchiolitis: Status: Acute Assessment and plan: Patient has a history of bronchiolitis does not appear to be active at this time. Patient is cleared for surgery (3) PEG (percutaneous endoscopic gastrostomy) status: Status: Chronic Assessment and plan: Patient cannot take foods by mouth. Just soup. She receives tube feedings through the G-tube. Will request nutrition consult for assistance in tube feeds (4) Insulin dependent type 2 diabetes mellitus: Status: Chronic Assessment and plan: Continue glucose monitoring and insulin supplementation as needed Patient is cleared for surgery (5) Bipolar 1 disorder: Status: Chronic Assessment and plan: Stable at this time. Patient is cleared for surgery History of Present Illness History of Present Illness Chief Complaint: Right femoral fracture Narrative: Patient is a 63-year-old female with multiple medical problems including use of a G-tube, diabetes mellitus, frequent falls, bipolar disorder She fell and broke her right hip. She has a left prosthesis which was examined by x ray and found to be stable. She complains of R hip pain. She underwent a CT head and cervical spine which showed no intracranial processes no acute fracture or subluxation of the cervical spine EKG showed sinus rhythm rate of 68 She is being admitted after being directed by orthopedics to admit to medicine for surgery tomorrow. Review of Systems Narrative: Patient with R hip pain, no headache, no palpitations All systems reviewed & are unremarkable except as noted in HPI and below PFSH All Active Problems (Updated 03/01/24 @ 05:41 by Gt Mills MD) Displaced fracture of right femoral neck (Acute) Closed fracture of right hip (Acute) Dislodged gastrostomy tube (Acute) Acute on chronic respiratory failure with hypoxia and hypercapnia (Acute) HFrEF (heart failure with reduced ejection fraction) (Chronic) Bronchiolitis (Acute) NSTEMI (non-ST elevated myocardial infarction) (Acute) Per pt. 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) Acute respiratory failure with hypoxia (Acute) COVID (Acute) Depression (Chronic) Bipolar 1 disorder (Chronic) Diabetes (Chronic) Cholelithiasis (Chronic) Ventral hernia (Acute) Leukocytosis (Acute) Pleural effusion (Acute) Black tarry stools (Acute) Chronic diarrhea (Acute) Farrell's esophagus (Chronic) Esophageal ulcer with bleeding (Acute) Erosive esophagitis (Acute) Farrell's 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 (Acute) Hyperplastic colon polyp (Acute ~06/10/21) Tubular adenoma (Acute ~06/10/21) Neuroleptic induced parkinsonism (Acute) Drug-induced parkinsonism (Acute) Anemia (Chronic) Status post hip surgery (Acute) H/O: pneumonia (Acute) Abnormal chest xray (Acute) Pre-op evaluation (Acute) Medical History Esophageal stricture Chronic systolic (congestive) heart failure Aspiration pneumonia Stress-induced cardiomyopathy acute onset managed at [facility] [place] 08/[place] pressors, EF 25%, has since recovered RH Acute cardiogenic pulmonary edema Acute metabolic encephalopathy Bilateral pneumonia Hypokalemia Closed fracture of neck of left femur s/p Percutaneous Screw Fixation 08/09/22 Constipation Diabetes mellitus type 2 in obese Chronic iron deficiency anemia ETOH abuse Poorly controlled diabetes mellitus Chronic pancreatitis due to acute alcohol intoxication Alcohol abuse Per pt. states she has never had an issues with any subtances History of pilonidal cyst Anxiety Surgical History History of total left hip arthroplasty (01/19/23) S/P laparoscopic procedure cyst removed from stomach per patient S/P surgical removal of pilonidal cyst History of esophagogastroduodenoscopy (EGD) (~06/10/21) History of colonoscopy with polypectomy (~06/10/21) History of hysterectomy History of tonsillectomy History of section Family History Father Hypertension Diabetes Heart disease Social History Smoking/Tobacco Use Status: Never Smoking risk assessment performed?: Yes Alcohol Intake: never Drug use: Never Substance use type: does not use Household members: spouse Housing: house Number of Children: 2 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 Meds Allergies and Home Medications Allergies Allergy/AdvReac Type Severity Reaction Status Date / Time metformin AdvReac Unknown Diarrhea Verified 02/29/24 15:15 meperidine AdvReac gi upset Verified 02/29/24 15:15 Home Medications ?Medication ?Instructions ?Recorded ?Confirmed ?Type sucralfate 1 gram tablet 1 g PO QID 08/08/22 02/29/24 History folic acid 1 mg tablet 1 mg PO DAILY #0 tabs 08/10/22 02/29/24 Rx atorvastatin 80 mg tablet 80 mg PO DAILY 11/18/22 02/29/24 History empagliflozin 10 mg tablet 10 mg PO DAILY 11/18/22 02/29/24 History (Jardiance) metoprolol succinate 50 mg 25 mg PO BID 11/18/22 02/29/24 History tablet,extended release 24 hr quetiapine 100 mg tablet 100 mg PO QHS 11/18/22 02/29/24 History sacubitril 24 mg-valsartan 26 mg 1 tab feeding tube BID 11/18/22 02/29/24 History tablet (Entresto) valproic acid (as sodium salt) 250 300 mg PO TID 11/18/22 02/29/24 History mg/5 mL oral solution bupropion HCl 100 mg tablet 300 mg PO DAILY 12/16/22 02/29/24 History protein See Rx Instructions PO .COMPLEX 12/16/22 02/29/24 History acetaminophen 500 mg/15 mL oral 1,000 mg (30 mL) PO Q8H PRN #237 mL 01/19/23 02/29/24 Rx liquid ferrous sulfate 300 mg (60 mg 300 mg feeding tube .QOD 01/31/23 02/29/24 History iron)/5 mL oral liquid insulin NPH isoph U-100 human 100 See Rx Instructions .Route 02/28/23 02/29/24 Rx unit/mL (3 mL) subcutaneous pen .COMPLEX #0 mL (Humulin N NPH U-100 Insulin KwikPen) ibuprofen 100 mg/5 mL oral 600 mg PO Q8H PRN 04/04/23 02/29/24 History suspension nystatin 100,000 unit/gram topical 1 applic topical TID PRN 05/03/23 02/29/24 History cream nystatin 100,000 unit/gram topical 1 applic topical TID PRN 05/03/23 02/29/24 History powder pantoprazole 40 mg granules 40 mg G-tube DAILY 05/03/23 02/29/24 History delayed-release for susp in packet insulin glargine 100 unit/mL (3 10 unit subcut QPM 05/04/23 02/29/24 History mL) subcutaneous pen (Lantus Solostar U-100 Insulin) melatonin 3 mg tablet 9 mg feeding tube HS 05/04/23 02/29/24 History ondansetron HCl 4 mg tablet 8 mg feeding tube Q8H PRN 05/08/23 02/29/24 History aspirin 81 mg chewable tablet 81 mg feeding tube DAILY #30 tabs 07/05/23 02/29/24 Rx guaifenesin 200 mg/5 mL oral liquid 200 mg (5 mL) feeding tube Q4H PRN 07/05/23 02/29/24 Rx #118 mL duloxetine 20 mg capsule,delayed 20 mg PO DAILY 01/24/24 02/29/24 History release (Cymbalta) duloxetine 60 mg capsule,delayed 60 mg PO DAILY 01/24/24 02/29/24 History release (Cymbalta) Exam Narrative Exam Narrative: Patient is alert and oriented x 3 and in no acute distress. Patient was seen in the ED and was startled upon being awoken. She was thereafter appropriate and pleasant. HEENT: Neck supple, MM pink and moist, conjunctiva non-injected, sclera non-icteric, Pupils equal and reactive to light symmetrically, no JVD, no A waves. No thyromegaly. No carotid bruit CHEST: Bilaterally symmetrical with inspiration and expiration. No use of accessory muscles of respiration. No nasal flaring. RESP: Clear to auscultation bilaterally, no rales, rhonchi or wheeze, no pleural friction rub, no post-tussive crackles or apical rales. COR: RRR soft 1.5/6 JOSE LUIS LUSB, normal S1, S2, no rub or gallop ABDOMEN: Soft, non tender diffusely, normally active bowel sounds diffusely, No hepatosplenomegaly, No abdominal bruit, no masses, no tenderness on deep abdominal palpation. G-tube site is present to the mid epigastrium and is well-secured. There is no surrounding erythema purulence or clinical evidence of infection. G/U: deferred Rectal: deferred MUSCULOSKELETAL: Bilaterally symmetrical, no muscle belly tenderness or mass. No right hip ecchymosis is noted. DERMIS: Skin warm and dry, no ulcers or rashes, EXTREMITIES: No cyanosis, clubbing or edema, no gross deformities of the large or small joints of the upper or lower extremities. I did not examine the right hip joint. NEUROLOGICAL: Cranial nerves intact II-XII without notable deficit, No peripheral neurosensory or motor deficits noted. LYMPH: No anterior or posterior cervical, no supraclavicular, No axillary, no epitrochlear or femoral lymphadenopathy. Results Labs 03/01/24 06:55 03/01/24 06:55 Labs: Laboratory Results - last 24 hr 02/29/24 17:31 WBC 8.55 RBC 4.49 Hgb 13.2 Hct 40.8 MCV 91 MCH 29.4 MCHC 32.4 RDW 13.7 Plt Count 119 L MPV 11.5 H Immature Gran % 0.8 Neutrophils % 68.5 Lymphocytes % 19.8 Monocytes % 8.5 Eosinophils % 2.0 Basophils % 0.4 Nucleated RBC % 0.0 Absolute Neutrophils 5.86 Absolute Lymphocytes 1.69 Absolute Monocytes 0.73 Absolute Eosinophils 0.17 Absolute Basophils 0.03 PT 9.5 INR 0.9 Sodium 144 Potassium 3.7 Chloride 107 Carbon Dioxide 32.2 H Anion Gap 4.8 BUN 7 Creatinine 0.8 Est GFR (CKD-EPI 2020) 82.74 Glucose 131 H Calcium 9.0 Total Bilirubin 0.40 AST 15 ALT 19 Alkaline Phosphatase 108 Creatine Kinase 24 L Total Protein 6.1 L Albumin 2.7 L Last Vital Signs Temp 36.6 C 02/29/24 15:12 Pulse 70 02/29/24 15:12 Resp 18 02/29/24 16:20 BP 112/56 L 02/29/24 15:12 Pulse Ox 97 02/29/24 16:20 Time Spent Time spent with Patient: 55-74 minutes Time was spent: preparing to see the patient(eg.review tests), obtaining and/or reviewing separately otained hiistory, ordering medications,tests, procedures, referring, communicating with other health health careers instructor, indepentently interpreting results, counseling the patient and care coordination
[2024-02-29 21:09] LABS: TSH (W/Ref FT4) 2.11 uIU/mL (0.36-3.74)
--- NOTE | 2024-02-29 21:19 | ED.GENADUL_ITS ---
Discharge Plan Disposition Patient Disposition: Admit to [facility] Condition: Stable Discharge Details Chief Complaint: Trauma Clinical Impression: Closed fracture of right hip Admit Date/Time: 02/29/24 21:20 Admit Provider: Aiden Bennett Attending Provider: Aiden Bennett Primary Care Provider: Ana Gillespie ED Provider: Tamiko Wasserman Home Meds and New Rx's Prescriptions: No Action bupropion HCl 100 mg tablet 300 mg PO DAILY Patient Comments: via g-tube, per pcp ov notes 12/09/22 RH protein Powder See Rx Instructions PO .COMPLEX Rx Instructions: 2 scoops daily duloxetine [Cymbalta] 20 mg capsule,delayed release(DR/EC) 20 mg PO DAILY duloxetine [Cymbalta] 60 mg capsule,delayed release(DR/EC) 60 mg PO DAILY Entresto 24-26 mg tablet 1 tab feeding tube BID Patient Comments: via g-tube Jardiance 10 mg tablet 10 mg PO DAILY quetiapine 100 mg tablet 100 mg PO QHS atorvastatin 80 mg tablet 80 mg PO DAILY valproic acid (as sodium salt) 250 mg/5 mL solution 300 mg PO TID Rx Instructions: 6mls TID metoprolol succinate 50 mg tablet extended release 24 hr 25 mg PO BID sucralfate 1 gram tablet 1 g PO QID Patient Comments: TAKE ONE TABLET BY MOUTH FOUR TIMES A DAY folic acid 1 mg Tablet 1 mg PO DAILY Qty: 0 0RF ferrous sulfate 300 mg (60 mg iron)/5 mL liquid 300 mg feeding tube .QOD Patient Comments: TAKE 5ML VIA G-TUBE EVERY OTHER DAY Humulin N NPH Insulin KwikPen 100 unit/mL (3 mL) insulin pen See Rx Instructions .ROUTE .COMPLEX Qty: 0 0RF Rx Instructions: 20 units at 11 am followed by sliding scale at 3 pm (5 units for blood sugar of 250 plus 1 additional unit for any 20 points that the blood sugar is above 250) ibuprofen 100 mg/5 mL suspension 600 mg PO Q8H PRN guaifenesin 200 mg/5 mL liquid 200 mg feeding tube Q4H PRNQty: 118 0RF aspirin 81 mg tablet,chewable 81 mg feeding tube DAILY Qty: 30 0RF acetaminophen 500 mg/15 mL liquid 1,000 mg PO Q8H PRNQty: 237 2RF nystatin 100,000 unit/gram powder 1 applic TOPICAL TID PRN Patient Comments: APPLY TO BUTTOCKS THREE TIMES A DAY NEEDED pantoprazole [address] for susp in packet 40 mg G-tube DAILY Patient Comments: Take 1 packet via g-tube twice a day Administer in 10 mL of apple juice via g-tub, then follow with another 10 mL. nystatin 100,000 unit/gram cream 1 applic TOPICAL TID PRN Patient Comments: APPLY A SMALL AMOUNT TO AFFECTED AREA(S) ON BUTTOCKS THREE TIMES A DAY NEEDED melatonin 3 mg tablet 9 mg feeding tube HS Patient Comments: TAKE THREE TABLETS VIA G-TUBE EVERY NIGHT DIRECTED insulin glargine [Lantus Solostar U-100 Insulin] 100 unit/mL (3 mL) insulin pen 10 unit SUBCUT QPM Patient Comments: INJECT 10 UNITS UNDER THE SKIN NIGHTLY DIRECTED ondansetron HCl 4 mg tablet 8 mg feeding tube Q8H PRN Patient Comments: TAKE ONE TABLET VIA G-TUBE EVERY 8 HOURS NEEDED HPI General Date/Time Provider Initiated Documentation: 02/29/24 15:13 . Limitations to Documentation: no limitations . Information obtained by: patient . HPI Narrative: 63-year-old female with past medical history of heart failure, dysphagia with G- tube dependence, COPD, diabetes, bipolar disorder presents for evaluation after a fall. She reports that she was in her kitchen when she tripped and fell and lost her balance and she landed on her right hip. She did not hit her head or l ose consciousness. She reports that she was unable to get up off the floor. Her family member that was there could also not help her get up, so EMS was contacted and she was brought into the hospital by ambulance. A c-collar was placed prior to arrival. She denies any head or neck pain. She reports right hip pain that is worse with any movement. Related Data Home Medications ?Medication ?Instructions ?Recorded ?Confirmed sucralfate 1 gram tablet 1 g PO QID 08/08/22 02/29/24 folic acid 1 mg tablet 1 mg PO DAILY #0 tabs 08/10/22 02/29/24 atorvastatin 80 mg tablet 80 mg PO DAILY 11/18/22 02/29/24 empagliflozin 10 mg tablet 10 mg PO DAILY 11/18/22 02/29/24 (Jardiance) metoprolol succinate 50 mg 25 mg PO BID 11/18/22 02/29/24 tablet,extended release 24 hr quetiapine 100 mg tablet 100 mg PO QHS 11/18/22 02/29/24 sacubitril 24 mg-valsartan 26 mg 1 tab feeding tube BID 11/18/22 02/29/24 tablet (Entresto) valproic acid (as sodium salt) 250 300 mg PO TID 11/18/22 02/29/24 mg/5 mL oral solution bupropion HCl 100 mg tablet 300 mg PO DAILY 12/16/22 02/29/24 protein See Rx Instructions PO .COMPLEX 12/16/22 02/29/24 acetaminophen 500 mg/15 mL oral 1,000 mg (30 mL) PO Q8H PRN #237 mL 01/19/23 02/29/24 liquid ferrous sulfate 300 mg (60 mg 300 mg feeding tube .QOD 01/31/23 02/29/24 iron)/5 mL oral liquid insulin NPH isoph U-100 human 100 See Rx Instructions .Route 02/28/23 02/29/24 unit/mL (3 mL) subcutaneous pen .COMPLEX #0 mL (Humulin N NPH U-100 Insulin KwikPen) ibuprofen 100 mg/5 mL oral 600 mg PO Q8H PRN 04/04/23 02/29/24 suspension nystatin 100,000 unit/gram topical 1 applic topical TID PRN 05/03/23 02/29/24 cream nystatin 100,000 unit/gram topical 1 applic topical TID PRN 05/03/23 02/29/24 powder pantoprazole 40 mg granules 40 mg G-tube DAILY 05/03/23 02/29/24 delayed-release for susp in packet insulin glargine 100 unit/mL (3 10 unit subcut QPM 05/04/23 02/29/24 mL) subcutaneous pen (Lantus Solostar U-100 Insulin) melatonin 3 mg tablet 9 mg feeding tube HS 05/04/23 02/29/24 ondansetron HCl 4 mg tablet 8 mg feeding tube Q8H PRN 05/08/23 02/29/24 aspirin 81 mg chewable tablet 81 mg feeding tube DAILY #30 tabs 07/05/23 02/29/24 guaifenesin 200 mg/5 mL oral liquid 200 mg (5 mL) feeding tube Q4H PRN 07/05/23 02/29/24 #118 mL duloxetine 20 mg capsule,delayed 20 mg PO DAILY 01/24/24 02/29/24 release (Cymbalta) duloxetine 60 mg capsule,delayed 60 mg PO DAILY 01/24/24 02/29/24 release (Cymbalta) Previous Rx's ?Medication ?Instructions ?Recorded folic acid 1 mg tablet 1 mg PO DAILY #0 tabs 08/10/22 acetaminophen 500 mg/15 mL oral 1,000 mg (30 mL) PO Q8H PRN #237 mL 01/19/23 liquid insulin NPH isoph U-100 human 100 See Rx Instructions .Route 02/28/23 unit/mL (3 mL) subcutaneous pen .COMPLEX #0 mL (Humulin N NPH U-100 Insulin KwikPen) aspirin 81 mg chewable tablet 81 mg feeding tube DAILY #30 tabs 07/05/23 guaifenesin 200 mg/5 mL oral liquid 200 mg (5 mL) feeding tube Q4H PRN 07/05/23 #118 mL Allergies Allergy/AdvReac Type Severity Reaction Status Date / Time metformin AdvReac Unknown Diarrhea Verified 02/29/24 15:15 meperidine AdvReac gi upset Verified 02/29/24 15:15 General Stated Complaint: Trauma ASHANTI: 3 Exam Narrative Exam Narrative: Review of Systems: All systems reviewed & are unremarkable except as noted in HPI and below Well-developed, no acute distress NCAT C-collar in place, no midline C-spine tenderness RRR no murmur Unlabored respiratory effort clear bilaterally Nondistended abdomen soft nontender Right hip with extreme tenderness to palpation of the lateral aspect of the leg. Leg noted to be slightly rotated, not significantly shortened, neurovascularly intact Course Vital Signs Vital signs: Vital Signs Temperature 36.6 C 02/29/24 15:12 Pulse 70 02/29/24 15:12 Respiratory Rate 20 02/29/24 15:12 Blood Pressure 112/56 L 02/29/24 15:12 Pulse Oximetry 99 02/29/24 15:12 Temperature 36.6 C 02/29/24 15:12 Temperature Source Temporal Artery Scan 02/29/24 15:12 Pulse 68 02/29/24 20:31 Pulse 62 02/29/24 21:10 Respiratory Rate 23 02/29/24 21:00 Respiratory Effort Normal 02/29/24 17:59 Blood Pressure 165/70 H 02/29/24 20:31 Blood Pressure Mean 107 02/29/24 20:31 Pulse Oximetry 100 02/29/24 21:10 Oxygen Delivery Method Nasal Cannula 02/29/24 19:58 Oxygen Flow Rate 2 02/29/24 19:58 Pain Level 8 02/29/24 19:52 Comment Pt desated while sleeping, pt states she is usually on 2L O2 at home. Placed on 2L NC with sats back >92% 02/29/24 19:55 Comment placed on 2L 02/29/24 19:50 Lab/Test Results Lab/Test Results: Laboratory Tests Range/Units 02/29/24 17:31 WBC (4.4-10.8) 10^3/uL 8.55 RBC (3.93-5.22) 10^6/uL 4.49 Hgb (11.2-15.7) g/dL 13.2 Hct (36.0-46.0) % 40.8 MCV (80-95) fL 91 MCH (27.0-33.0) pg 29.4 MCHC (32.0-36.0) % 32.4 RDW (11.7-14.6) % 13.7 Plt Count (130-400) 10^3/uL 119 L MPV (8.0-11.0) fL 11.5 H Immature Gran % % 0.8 Neutrophils % % 68.5 Lymphocytes % % 19.8 Monocytes % % 8.5 Eosinophils % % 2.0 Basophils % % 0.4 Nucleated RBC % (0.0-0.3) % 0.0 Absolute Neutrophils (1.2-6.7) 10^3/uL 5.86 Absolute Lymphocytes (1.2-3.4) 10^3/uL 1.69 Absolute Monocytes (0.1-0.8) 10^3/uL 0.73 Absolute Eosinophils (0.0-0.7) 10^3/uL 0.17 Absolute Basophils (0.0-0.2) 10^3/uL 0.03 PT (9.1-11.1) sec 9.5 INR (0.9-1.1) 0.9 Sodium (136-145) mmol/L 144 Potassium (3.5-5.1) mmol/L 3.7 Chloride (98-107) mmol/L 107 Carbon Dioxide (21.0-32.0) mmol/L 32.2 H Anion Gap (3-11) mmol/L 4.8 BUN (7-18) mg/dL 7 Creatinine (0.55-1.02) mg/dL 0.8 Est GFR (CKD-EPI 2020) (mL/min/1.73m2) 82.74 Glucose (74-106) mg/dL 131 H Calcium (8.5-10.1) mg/dL 9.0 Total Bilirubin (0.2-1.0) mg/dL 0.40 AST (15-37) U/L 15 ALT (14-59) U/L 19 Alkaline Phosphatase (46-116) U/L 108 Creatine Kinase (26-192) U/L 24 L Total Protein (6.4-8.2) g/dL 6.1 L Albumin (3.4-5.0) g/dL 2.7 L TSH (0.36-3.74) uIU/mL 2.11 Medical Decision Making Emergent evaluation of fall. Patient has right hip pain but no other injuries. Concern for right hip fracture versus contusion. Given age and medical comorbidities will also get CT imaging of head and neck given the fall. This sounds like a mechanical fall and not syncope or other more concerning cause of the fall. EKG obtained reviewed and independently interpreted: Sinus 68, normal axis normal intervals no STEMI. X-ray imaging obtained and reviewed of the hip and pelvis. It is concerning for a right subcapital femur fracture. Head and C-spine CT imaging do not have acute injuries and the C-collar was removed. Discussed with orthopedics and anesthesia and the patient is a surgical candidate for this facility. She will be surgically repaired tomorrow. Given her multiple medical comorbidities she will be admitted to the medicine service for management. Quality:SDOH Health Related Social Needs: No Data to Display PFSH All Active Problems (Updated 02/29/24 @ 21:23 by Tamiko Wasserman MD) Closed fracture of right hip (Acute) Dislodged gastrostomy tube (Acute) Acute on chronic respiratory failure with hypoxia and hypercapnia (Acute) HFrEF (heart failure with reduced ejection fraction) (Chronic) Bronchiolitis (Acute) NSTEMI (non-ST elevated myocardial infarction) (Acute) Per pt. 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) Acute respiratory failure with hypoxia (Acute) COVID (Acute) Depression (Chronic) Bipolar 1 disorder (Chronic) Diabetes (Chronic) Cholelithiasis (Chronic) Ventral hernia (Acute) Leukocytosis (Acute) Pleural effusion (Acute) Black tarry stools (Acute) Chronic diarrhea (Acute) Farrell's esophagus (Chronic) Esophageal ulcer with bleeding (Acute) Erosive esophagitis (Acute) Farrell's 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 (Acute) Hyperplastic colon polyp (Acute ~06/10/21) Tubular adenoma (Acute ~06/10/21) Neuroleptic induced parkinsonism (Acute) Drug-induced parkinsonism (Acute) Anemia (Chronic) Status post hip surgery (Acute) H/O: pneumonia (Acute) Abnormal chest xray (Acute) Pre-op evaluation (Acute) Medical History Esophageal stricture Chronic systolic (congestive) heart failure Aspiration pneumonia Stress-induced cardiomyopathy [place] [facility] [place], EF 25%, has since recovered RH Acute cardiogenic pulmonary edema Acute metabolic encephalopathy Bilateral pneumonia Hypokalemia Closed fracture of neck of left femur s/p Percutaneous Screw Fixation 08/09/22 Constipation Diabetes mellitus type 2 in obese Chronic iron deficiency anemia ETOH abuse Poorly controlled diabetes mellitus Chronic pancreatitis due to acute alcohol intoxication Alcohol abuse Per pt. states she has never had an issues with any subtances History of pilonidal cyst Anxiety Surgical History History of total left hip arthroplasty (01/19/23) S/P laparoscopic procedure cyst removed from stomach per patient S/P surgical removal of pilonidal cyst History of esophagogastroduodenoscopy (EGD) (~06/10/21) History of colonoscopy with polypectomy (~06/10/21) History of hysterectomy History of tonsillectomy History of section Family History Father Hypertension Diabetes Heart disease Social History Smoking/Tobacco Use Status: Never Smoking risk assessment performed?: Yes Alcohol Intake: never Drug use: Never Substance use type: does not use Household members: spouse Housing: apartment Number of Children: 2 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
--- NOTE | 2024-02-29 21:20 | W.PC.ACHO ---
Registration Status: Primary Language: Preferred Language: ED Information & Data Chief Complaint Trauma 02/29/24 17:59 Chief Complaint Trauma 02/29/24 15:12 Triage Note fall with head strike to 02/29/24 15:12 floor, right hip pain with shortening of right leg, was on floor x1 hour Medical / Surgical History (Last Reviewed 02/29/24 @ 19:45 by Aiden Bennett DO) Esophageal stricture Chronic systolic (congestive) heart failure Aspiration pneumonia Stress-induced cardiomyopathy Acute cardiogenic pulmonary edema Acute metabolic encephalopathy Bilateral pneumonia Hypokalemia Closed fracture of neck of left femur Constipation Diabetes mellitus type 2 in obese Chronic iron deficiency anemia ETOH abuse Poorly controlled diabetes mellitus Chronic pancreatitis due to acute alcohol intoxication Alcohol abuse History of pilonidal cyst Anxiety (Last Reviewed 02/29/24 @ 19:45 by Aiden Bennett DO) History of total left hip arthroplasty (01/19/23) S/P laparoscopic procedure S/P surgical removal of pilonidal cyst History of esophagogastroduodenoscopy (EGD) (~06/10/21) History of colonoscopy with polypectomy (~06/10/21) History of hysterectomy History of tonsillectomy History of section Most Recent Vital Signs Temperature 36.6 C 02/29/24 15:12 Temperature Source Temporal Artery Scan 02/29/24 15:12 Pulse 68 02/29/24 20:31 Pulse 62 02/29/24 21:10 Respiratory Rate 23 02/29/24 21:00 Respiratory Effort Normal 02/29/24 17:59 Blood Pressure 165/70 H 02/29/24 20:31 Blood Pressure Mean 107 02/29/24 20:31 Pulse Oximetry 100 02/29/24 21:10 Oxygen Delivery Method Nasal Cannula 02/29/24 19:58 Oxygen Flow Rate 2 02/29/24 19:58 Pain Level 8 02/29/24 19:52 Comment Pt desated while sleeping, pt states she is usually on 2L O2 at home. Placed on 2L NC with sats back >92% 02/29/24 19:55 Comment placed on 2L 02/29/24 19:50 Allergies metformin Adverse Reaction (Unknown, Verified 02/29/24 15:15) Diarrhea meperidine Adverse Reaction (Verified 02/29/24 15:15) gi upset IV IV Catheter Type [Left Upper Saline Lock arm] IV Catheter Gauge [Left Upper 20 arm] Diagnostics 02/29/24 Range/Units 17:31 WBC 8.55 (4.4-10.8) 10^3/uL RBC 4.49 (3.93-5.22) 10^6/uL Hgb 13.2 (11.2-15.7) g/dL Hct 40.8 (36.0-46.0) % MCV 91 (80-95) fL MCH 29.4 (27.0-33.0) pg MCHC 32.4 (32.0-36.0) % RDW 13.7 (11.7-14.6) % Plt Count 119 L (130-400) 10^3/uL MPV 11.5 H (8.0-11.0) fL Immature Gran % 0.8 % Neutrophils % 68.5 % Lymphocytes % 19.8 % Monocytes % 8.5 % Eosinophils % 2.0 % Basophils % 0.4 % Nucleated RBC % 0.0 (0.0-0.3) % Absolute Neutrophils 5.86 (1.2-6.7) 10^3/uL Absolute Lymphocytes 1.69 (1.2-3.4) 10^3/uL Absolute Monocytes 0.73 (0.1-0.8) 10^3/uL Absolute Eosinophils 0.17 (0.0-0.7) 10^3/uL Absolute Basophils 0.03 (0.0-0.2) 10^3/uL PT 9.5 (9.1-11.1) sec INR 0.9 (0.9-1.1) Sodium 144 (136-145) mmol/L Potassium 3.7 (3.5-5.1) mmol/L Chloride 107 (98-107) mmol/L Carbon Dioxide 32.2 H (21.0-32.0) mmol/L Anion Gap 4.8 (3-11) mmol/L BUN 7 (7-18) mg/dL Creatinine 0.8 (0.55-1.02) mg/dL Est GFR (CKD-EPI 2020) 82.74 (mL/min/1.73m2) Glucose 131 H (74-106) mg/dL Calcium 9.0 (8.5-10.1) mg/dL Total Bilirubin 0.40 (0.2-1.0) mg/dL AST 15 (15-37) U/L ALT 19 (14-59) U/L Alkaline Phosphatase 108 (46-116) U/L Creatine Kinase 24 L (26-192) U/L Total Protein 6.1 L (6.4-8.2) g/dL Albumin 2.7 L (3.4-5.0) g/dL TSH 2.11 (0.36-3.74) uIU/mL Intake and Output - 24 Hour Total 02/29/24 15:00 thru 02/29/24 18:48 Intake Total 110 Balance 110 Weight 66.678 kg Intake: IV 110 Problems (Last Reviewed 02/29/24 @ 19:45 by Aiden Bennett DO) HFrEF (heart failure with reduced ejection fraction) (Chronic) Bronchiolitis (Acute) PEG (percutaneous endoscopic gastrostomy) status (Chronic) 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) Bipolar 1 disorder (Chronic) v v v v v v v v v Sending and/or Receiving Nurses: Please use comment section below to note any information pertinent to the patient hand-off not included above. Information / Comments: Report taken, Pt going to room 228. Report received from: ERI Velasco at [id number]
--- OUTSIDE RECORDS SUMMARY | 2024-02-29 21:24 | XMS_ITS | Data Portability ---
Author Organization [facility] [place] [address] Care Team Providers Care Antiquer Name Role Phone CHRIS STANLEY Primary Care Provider AGGIE PUGA OTHER RICHARD SANTANA OTHER FLAVIO MOSELEY OTHER Assessment Encounter Date Assessment Date Assessment LastModified by Organization Details LastModified Time 07/16/2023 07/16/2023 The following concerns were reviewed today. We agree to follow-up in 2 weeks at which time A1C will be completed. [email or web address] Not available 07/16/2023 15:30:54 Plan of Treatment Reminders Order Date Submit Date Provider Last Modified By Organization Details Last Modified Time Details Appointments Office Visit 30 2023 10:30A Johanny STANLEY, Not available Not available Not available Lab hemoglobi n A1C, fingersti ck 2023 024 [facility], [address] [place] [address], [phone], 07/30/2023 12:19:14 bacterial vaginosis + vaginitis panel, vaginal 2023 024 [facility] (Registration ), [address] [place] [address] [place], [address], 12/07/2023 08:25:07 hemoglobi n A1C, fingersti ck [address]23 [email or web address], [address], 12/03/2023 13:04:17 Referral None recorded. Procedures None recorded. Surgeries None recorded. Imaging None recorded. Medication Orders Mapap (acetamin ophen) 500 mg/15 mL oral liquid 2023 024 [email or web address] [facility], [address] [place] [address], [address], 06/30/2023 10:46:36 Desitin 40 % topical paste 2023 024 JOSE MANUEL [facility], [address] [place] [address], [id number], 07/16/2023 09:39:52 fluconazo le 40 mg/mL oral suspensio n 2023 024 JOSE MANUEL [facility], [address] [place] [address], [address], 07/30/2023 10:47:32 Cymbalta 20 mg capsule,d elayed release 2023 024 [email or web address], [address] [place] [address], [address], 12/03/2023 11:06:36 duloxetin e 60 mg capsule,d elayed release 2023 024 JOSE MANUEL [facility], [address] [place] [address], [address], 09/01/2023 11:42:23 ondansetr on HCl 4 mg tablet 2023 024 [email or web address] [facility], [address] [place] [address], [address], 09/01/2023 11:26:22 Entresto 24 mg-26 mg tablet 2023 024 [email or web address] [facility], [address] [place], [address], 09/01/2023 11:26:22 duloxetin e 20 mg capsule,d elayed release 2023 024 [facility], [address] [place], [address], 12/04/2023 09:48:58 clotrimaz ole 1 % topical cream 2023 024 JOSE MANUEL [facility], [address] [place], [address], 12/04/2023 09:22:02 Likmez 500 mg/5 mL oral suspensio n 2023 024 JOSE MANUEL [facility], [address] [place], [address], 12/04/2023 09:26:17 Patient TargetsNo targets recorded. Patient InstructionsNo instructions recorded. 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 once visit is complete please send us the office notes. 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 Referral for Hea ring loss to go with ENT referral Referring Physician: Chris Stanley [facility], Encounter Date: 04/12/2023 Results Created Date Observation Date Name Description Value Unit Range Abnormal Flag Note LastModifiedBy Organization Detail LastModifiedTime 06/29/1906/29/2023 influ marco (A+B) Ag, qual, rapid , nose Influenza A negati ve Not Available [address], [address], 06/29/2023 08:40:52 06/29/1903 0706/29/2023 influ marco (A+B) Ag, qual, rapid , nose Influenza B negati ve Not Available [facility] [address], [place], [address], 06/29/2023 08:40:52 07/02/19 24 07/02/2023 VENOU S BLOOD GAS pH (venous) 7.27 7.31-7 .41 low Not Available [address] [place], [address] 07/02/2023 12:28:02 07/02/19 24 07/02/2023 VENOU S BLOOD GAS pCO2 (venous) 71 mmHg 41-51 panic high Criti tonya value repor gabbie to and readb ack from KATI MADSEN at 1224 07/02 by KEKE.Jaime CONWAY Not Available [address] [place], [address] 07/02/2023 12:28:02 07/02/19 24 07/02/2023 VENOU S BLOOD GAS pO2 (venous) 44 mmHg Not Available [address] [place], [address] 07/02/2023 12:28:02 07/02/19 24 07/02/2023 VENOU S BLOOD GAS TCO2 (venous) 30 mmol/ L 24-29 high Not Available [address] [place], [address] 07/02/2023 12:28:02 07/02/19 24 07/02/2023 VENOU S BLOOD GAS HCO3 (venous) 32 mmol/ L 23-28 high Not Available [address] [place], [address] 07/02/2023 12:28:02 07/02/19 24 07/02/2023 VENOU S BLOOD GAS BE (venous) 5 mmol/ L -2-3 high Not Available [address] [place], [address] 07/02/2023 12:28:02 07/02/19 24 07/02/2023 VENOU S BLOOD GAS O2 sat (venous) 71 % Not Available Puja burris [address] [place], [address] 07/02/2023 12:28:02 07/02/19 24 07/02/2023 COMPL ETE BLOOD COUNT W/DIF F WBC 14.79 10_3/ uL 4.4-10 .8 high Not Available [address] [place], [address] 07/02/2023 12:30:06 07/02/19 24 07/02/2023 COMPL ETE BLOOD COUNT W/DIF F RBC 4.78 10_6/ uL 3.93-5 .22 normal Not Available [address] [place], [address] 07/02/2023 12:30:06 07/02/19 24 07/02/2023 COMPL ETE BLOOD COUNT W/DIF F HGB 13.6 g/dL 11.2-1 5.7 normal Not Available [address] [place], [address] 07/02/2023 12:30:06 07/02/19 24 07/02/2023 COMPL ETE BLOOD COUNT W/DIF F HCT 42.3 % 36.0-4 6.0 normal Not Available [address] [place], [address] 07/02/2023 12:30:06 07/02/19 24 07/02/2023 COMPL ETE BLOOD COUNT W/DIF F MCV 89 fL 80-95 normal Not Available Medardo tarango [address] [place], [address] 07/02/2023 12:30:06 07/02/19 24 07/02/2023 COMPL ETE BLOOD COUNT W/DIF F MCH 28.5 pg 27.0-3 3.0 normal Not Available [address] [place], [address] 07/02/2023 12:30:06 07/02/19 24 07/02/2023 COMPL ETE BLOOD COUNT W/DIF F MCHC 32.2 % 32.0-3 6.0 normal Not Available [address] [place], [address] 07/02/2023 12:30:06 07/02/19 24 07/02/2023 COMPL ETE BLOOD COUNT W/DIF F RDW 15.4 % 11.7-1 4.6 high Not Available [address] [place], [address] 07/02/2023 12:30:06 07/02/19 24 07/02/2023 COMPL ETE BLOOD COUNT W/DIF F platelet count 244 10_3/ uL 130-40 0 normal Not Available [address] [place], [address] 07/02/2023 12:30:06 07/02/19 24 07/02/2023 COMPL ETE BLOOD COUNT W/DIF F MPV 10.8 fL 8.0-11 .0 normal Not Available [address] [place], [address] 07/02/2023 12:30:06 07/02/19 24 07/02/2023 COMPL ETE BLOOD COUNT W/DIF F neutrophils % 74.3 Not Available [address] [place], [address] 07/02/2023 12:30:06 07/02/19 24 07/02/2023 COMPL ETE BLOOD COUNT W/DIF F lymphocytes % 10.8 Not Available [address] [place], [address] 07/02/2023 12:30:06 07/02/19 24 07/02/2023 COMPL ETE BLOOD COUNT W/DIF F monocytes % 5.3 Not Available [address] [place], [address] 07/02/2023 12:30:06 07/02/19 24 07/02/2023 COMPL ETE BLOOD COUNT W/DIF F eosinophils % 8.6 Not Available [address] [place], [address] 07/02/2023 12:30:06 07/02/19 24 07/02/2023 COMPL ETE BLOOD COUNT W/DIF F basophils % 0.7 Not Available [address] [place], [address] 07/02/2023 12:30:06 07/02/19 24 07/02/2023 COMPL ETE BLOOD COUNT W/DIF F immature grans % 0.3 Not Available Puja [email or web address] [place], [address] 07/02/2023 12:30:06 07/02/19 24 07/02/2023 COMPL ETE BLOOD COUNT W/DIF F nucleated RBC 0.0 % 0.0-0. 3 normal Not Available [address] [place], [address] 07/02/2023 12:30:06 07/02/19 24 07/02/2023 COMPL ETE BLOOD COUNT W/DIF F absolute neutrophil count 10.99 10_3/ uL 1.2-6. 7 high Not Available [address] [place], [address] 07/02/2023 12:30:06 07/02/19 24 07/02/2023 COMPL ETE BLOOD COUNT W/DIF F absolute lymphocyte count 1.60 10_3/ uL 1.2-3. 4 normal Not Available [address] [place], [address] 07/02/2023 12:30:06 07/02/19 24 07/02/2023 COMPL ETE BLOOD COUNT W/DIF F absolute monocyte count 0.78 10_3/ uL 0.1-0. 8 normal Not Available [address] [place], [address] 07/02/2023 12:30:06 07/02/19 24 07/02/2023 COMPL ETE BLOOD COUNT W/DIF F absolute eosinophil count 1.27 10_3/ uL 0.0-0. 7 high Not Available [address] [place], [address] 07/02/2023 12:30:06 07/02/19 24 07/02/2023 COMPL ETE BLOOD COUNT W/DIF F absolute basophil count 0.10 10_3/ uL 0.0-0. 2 normal Not Available [address] [place], [address] 07/02/2023 12:30:06 07/02/19 24 07/02/2023 BASIC METAB OLIC PANEL calcium 9.8 mg/dL 8.5-10 .1 normal Not Available [address] [place], [address] 07/02/2023 12:47:07 07/02/19 24 07/02/2023 BASIC METAB OLIC PANEL glucose 113 mg/dL 74-106 high Not Available Medardo tarango [address] [place], [address] 07/02/2023 12:47:07 07/02/1907/02/2023 BASIC METAB OLIC PANEL BUN 11 mg/dL 7-18 normal Not Available Medardo tarango [address] [place] [place], [address] 07/02/2023 12:47:07 07/02/19 24 07/02/2023 BASIC METAB OLIC PANEL creatinine 0.8 mg/dL 0.55-1 .02 normal Not Available [address] [place], [address] 07/02/2023 12:47:07 07/02/1907/02/2023 BASIC METAB OLIC PANEL estimated GFR 82.74 [...] young er-ag ed adult s. Not Available [address] [place], [address] 07/02/2023 12:47:07 07/02/19 24 07/02/2023 BASIC METAB OLIC PANEL sodium 142 mmol/ L 136-14 5 normal Not Available [address] [place], [address] 07/02/2023 12:47:07 07/02/19 24 07/02/2023 BASIC METAB OLIC PANEL potassium 4.5 mmol/ L 3.5-5. 1 normal Not Available [address] [place], [address] 07/02/2023 12:47:07 07/02/19 24 07/02/2023 BASIC METAB OLIC PANEL chloride 102 mmol/ L 98-107 normal Not Available [address] [place], [address] 07/02/2023 12:47:07 07/02/19 24 07/02/2023 BASIC METAB OLIC PANEL CO2 31.4 mmol/ L 21.0-3 2.0 normal Not Available [address] [place], [address] 07/02/2023 12:47:07 07/02/19 24 07/02/2023 BASIC METAB OLIC PANEL anion gap 8.6 mmol/ L 3-11 normal Not Available [address] [place], [address] 07/02/2023 12:47:07 07/02/19 24 07/02/2023 CARDI AC TROPO MONI I cardiac troponin I 203 NG/L < or =60 panic high Criti tonya value repor gabbie to and [facility]b ack [facility] 1243 07/02 by LAB.G ERJ An [...] Bioti n (Paola min B7). Not Available [address] [place], [address] 07/02/2023 12:47:08 07/02/19 24 07/02/2023 COVID /FLU/ RSV PCR source Nasoph arynx Not Available [facility] [address] [facility] [place], [address] 07/02/2023 13:22:12 07/02/19 24 07/02/2023 COVID /FLU/ [...] detec tion and/o r diagn osis of nCo under secti on 564(b )(1) of Act, [...] francesca nYisel Testi ng perfo rmed at [facility] (CLIA #[id number]) on the Cephe id GeneX pert. Not Available [address] [place], [address] 07/02/2023 13:22:12 07/02/19 24 07/02/2023 COVID /FLU/ RSV PCR influenza A PCR Negati ve negati ve Not Available [address] [place], [address] 07/02/2023 13:22:12 07/02/19 24 07/02/2023 COVID /FLU/ RSV PCR influenza B PCR Negati ve negati ve Not Available [address] [place], [address] 07/02/2023 13:22:12 07/02/19 24 07/02/2023 COVID /FLU/ RSV PCR RSV PCR Negati ve negati ve Not Available [address] [place], [address] 07/02/2023 13:22:12 07/02/19 24 07/02/2023 VENOU S BLOOD GAS pH (venous) 7.31 7.31-7 .41 normal Not Available [address] [place], [address] 07/02/2023 14:51:21 07/02/19 24 07/02/2023 VENOU S BLOOD GAS pCO2 (venous) 58 mmHg 41-51 high Not Available [address] [place], [address] 07/02/2023 14:51:21 07/02/19 24 07/02/2023 VENOU S BLOOD GAS pO2 (venous) 42 mmHg Not Available [address] [place], [address] 07/02/2023 14:51:21 07/02/19 24 07/02/2023 VENOU S BLOOD GAS TCO2 (venous) 26 mmol/ L 24-29 normal Not Available [address] [place], [address] 07/02/2023 14:51:21 07/02/19 24 07/02/2023 VENOU S BLOOD GAS HCO3 (venous) 29 mmol/ L 23-28 high Not Available [address] [place], [address] 07/02/2023 14:51:21 07/02/19 24 07/02/2023 VENOU S BLOOD GAS BE (venous) 2 mmol/ L -2-3 normal Not Available [address] [place], [address] 07/02/2023 14:51:21 07/02/19 24 07/02/2023 VENOU S BLOOD GAS O2 sat (venous) 72 % Not Available Puja burris [address] [place], [address] 07/02/2023 14:51:21 07/02/19 24 07/02/2023 CARDI AC TROPO MONI I cardiac troponin I 434 NG/L < or =60 panic high Criti tonya value repor gabbie to and readb ack from ERIN PRIEST (CNA PER DIEM), ER at 1508 07/02 by LAB.I JESSICA [...] Bioti n (Paola min B7). Not Available [address] [place], [address] 07/02/2023 15:14:23 07/02/19 24 07/02/2023 CARDI AC [...] Bioti n (Paola min B7). Not Available [address] [place], [address] 07/02/2023 18:00:48 07/02/19 24 07/02/2023 GRAM STAIN gram stain Gram Stain GRAM STAIN (REPO RT) Few White Blood Cells Rare Epith elial Cells Few Mixed Gram Posit yissel Travis ; None Predo minan t Not Available [address] [place], [address] 07/02/2023 20:36:09 07/02/19 24 07/02/2023 CARDI AC TROPO MONI I cardiac troponin I 500 NG/L < or =60 panic high Criti tonya value TROPO MONI repor gabbie to and readb ack from KURTIS MARCOS RN M/S at 07/02 by LAB.M ARC [...] Bioti n (Paola min B7). Not Available [address] [place], [address] 07/02/2023 21:01:00 07/02/19 24 07/02/2023 LAB ADD ON TEST lab add on test DONE Not Available [facility] [address], [address] 07/02/2023 21:49:06 07/02/19 24 07/02/2023 PROCA LCITO [...] se, among other cause s. Not Available [address] [facility] [place], [address] 07/02/2023 22:37:10 07/02/19 24 07/03/2023 SPUTU M [...] 1.1) - RARE GROWT H Not Available [address] [facility] [place], [address] 07/03/2023 08:51:17 07/02/19 24 07/04/2023 SPUTU M [...] 1.2) - RARE GROWT H Not Available [facility] [address] [facility], [place], [address] 07/04/2023 11:01:16 07/02/19 24 07/05/2023 SPUTU M [...] 1.2) - RARE GROWT H Not Available [address] [facility] [place], [address] 07/05/2023 09:10:04 07/02/19 24 07/07/2023 MYCOP LASMA PNEUM ONIAE , PCR specimen source sputum Not Available [address] [place], [address] 07/07/2023 16:28:33 07/02/19 24 07/07/2023 MYCOP LASMA PNEUM ONIAE , PCR mycoplasma pneumoniae PCR Negati ve negati ve ----- ----- ----- ----A DDITI ONAL INFOR MATIO N---- ----- ----- ----- This test was devel oped and its perfo rmanc e misty cteri stics deter mined by Newton Edith quintanilla in a arie r consi stent with JARETT yuan ts. This test has not been clear ed or appro sonia by the U.S. Food and Drug Admin istra tion. Test Perfo rmed by: Newton Edith quintanilla [facility] [place] [facility] [address], [place] [address] Lab Direc tor: Noel Kunz Ph.D. ; CLIA# [id number] Not Available [address] [facility] [place], [address] 07/07/2023 16:28:33 07/02/19 24 07/07/2023 STREP TOCOC [...] c assay . Test Perfo rmed by: [facility] [place] [address], [place] [address] Lab Direc tor: Noel Kunz Ph.D. ; CLIA# [id number] Not Available [address] [place], [address] 07/08/2023 08:43:22 07/02/19 24 07/03/2023 LEGIO SHANNON AG DETEC TION URINE legionella Ag detection urine Negati ve negati ve Test perfo rmed or refer red by [facility] [address] [facility] [place] [address] Not Available [address] [facility] [place], [address] 07/08/2023 08:43:22 07/03/19 24 07/03/2023 COMPL ETE BLOOD COUNT W/DIF F WBC 11.19 10_3/ uL 4.4-10 .8 high Not Available [address] [place], [address] 07/03/2023 07:26:12 07/03/19 24 07/03/2023 COMPL ETE BLOOD COUNT W/DIF F RBC 4.71 10_6/ uL 3.93-5 .22 normal Not Available [address] [facility] [place], [address] 07/03/2023 07:26:12 07/03/19 24 07/03/2023 COMPL ETE BLOOD COUNT W/DIF F HGB 13.3 g/dL 11.2-1 5.7 normal Not Available [address] [place], [address] 07/03/2023 07:26:12 07/03/1907/03/2023 COMPL ETE BLOOD COUNT W/DIF F HCT 40.7 % 36.0-4 6.0 normal Not Available [address] [place], [address] 07/03/2023 07:26:12 07/03/1907/03/2023 COMPL ETE BLOOD COUNT W/DIF F MCV 86 fL 80-95 normal Not Available Medardo tarango [address] [place], [address] 07/03/2023 07:26:12 07/03/1907/03/2023 COMPL ETE BLOOD COUNT W/DIF F MCH 28.2 pg 27.0-3 3.0 normal Not Available [address] [place], [address] 07/03/2023 07:26:12 07/03/1907/03/2023 COMPL ETE BLOOD COUNT W/DIF F MCHC 32.7 % 32.0-3 6.0 normal Not Available [address] [place], [address] 07/03/2023 07:26:12 07/03/1907/03/2023 COMPL ETE BLOOD COUNT W/DIF F RDW 15.4 % 11.7-1 4.6 high Not Available [address] [place], [address] 07/03/2023 07:26:12 07/03/1907/03/2023 COMPL ETE BLOOD COUNT W/DIF F platelet count 275 10_3/ uL 130-40 0 normal Not Available [address] [place], [address] 07/03/2023 07:26:12 07/03/1907/03/2023 COMPL ETE BLOOD COUNT W/DIF F MPV 11.3 fL 8.0-11 .0 high Not Available [address] [place], [address] 07/03/2023 07:26:12 07/03/19 24 07/03/2023 COMPL ETE BLOOD COUNT W/DIF F neutrophils % 74.2 Not Available [address] [place], [address] 07/03/2023 07:26:12 07/03/1907/03/2023 COMPL ETE BLOOD COUNT W/DIF F lymphocytes % 16.6 Not Available [address] [place], [address] 07/03/2023 07:26:12 07/03/19 24 07/03/2023 COMPL ETE BLOOD COUNT W/DIF F monocytes % 8.0 Not Available [address] [place], [address] 07/03/2023 07:26:12 07/03/1907/03/2023 COMPL ETE BLOOD COUNT W/DIF F eosinophils % 0.3 Not Available [address] [place], [address] 07/03/2023 07:26:12 07/03/1907/03/2023 COMPL ETE BLOOD COUNT W/DIF F basophils % 0.5 Not Available [address] [place], [address] 07/03/2023 07:26:12 07/03/1907/03/2023 COMPL ETE BLOOD COUNT W/DIF F immature grans % 0.4 Not Available [address] [place], [address] 07/03/2023 07:26:12 07/03/1907/03/2023 COMPL ETE BLOOD COUNT W/DIF F nucleated RBC 0.0 % 0.0-0. 3 normal Not Available [address] [place], [address] 07/03/2023 07:26:12 07/03/1907/03/2023 COMPL ETE BLOOD COUNT W/DIF F absolute neutrophil count 8.30 10_3/ uL 1.2-6. 7 high Not Available [address] [place], [address] 07/03/2023 07:26:12 07/03/19 24 07/03/2023 COMPL ETE BLOOD COUNT W/DIF F absolute lymphocyte count 1.86 10_3/ uL 1.2-3. 4 normal Not Available [address] [place], [address] 07/03/2023 07:26:12 07/03/19 24 07/03/2023 COMPL ETE BLOOD COUNT W/DIF F absolute monocyte count 0.90 10_3/ uL 0.1-0. 8 high Not Available [address] [place], [address] 07/03/2023 07:26:12 07/03/19 24 07/03/2023 COMPL ETE BLOOD COUNT W/DIF F absolute eosinophil count 0.03 10_3/ uL 0.0-0. 7 normal Not Available [address] [place], [address] 07/03/2023 07:26:12 07/03/19 24 07/03/2023 COMPL ETE BLOOD COUNT W/DIF F absolute basophil count 0.06 10_3/ uL 0.0-0. 2 normal Not Available [address] [place], [address] 07/03/2023 07:26:12 07/03/19 24 07/03/2023 BASIC METAB OLIC PANEL calcium 9.7 mg/dL 8.5-10 .1 normal Not Available [address] [place], [address] 07/03/2023 07:28:10 07/03/1907/03/2023 BASIC METAB OLIC PANEL glucose 107 mg/dL 74-106 high Not Available Medardo tarango [address] [place], [address] 07/03/2023 07:28:10 07/03/1907/03/2023 BASIC METAB OLIC PANEL BUN 17 mg/dL 7-18 normal Not Available Medardo tarango [address] [place], [address] 07/03/2023 07:28:10 07/03/1907/03/2023 BASIC METAB OLIC PANEL creatinine 1.0 mg/dL 0.55-1 .02 normal Not Available [address] [place], [address] 07/03/2023 07:28:10 07/03/1907/03/2023 BASIC METAB OLIC PANEL [...] young er-ag ed adult s. Not Available [address] [place], [address] 07/03/2023 07:28:10 07/03/19 24 07/03/2023 BASIC METAB OLIC PANEL sodium 139 mmol/ L 136-14 5 normal Not Available [address] [place], [address] 07/03/2023 07:28:10 07/03/19 24 07/03/2023 BASIC METAB OLIC PANEL potassium 4.5 mmol/ L 3.5-5. 1 normal Not Available [address] [place], [address] 07/03/2023 07:28:10 07/03/19 24 07/03/2023 BASIC METAB OLIC PANEL chloride 102 mmol/ L 98-107 normal Not Available [address] [place], [address] 07/03/2023 07:28:10 07/03/1907/03/2023 BASIC METAB OLIC PANEL CO2 26.2 mmol/ L 21.0-3 2.0 normal Not Available [address] [place], [address] 07/03/2023 07:28:10 07/03/19 24 07/03/2023 BASIC METAB OLIC PANEL anion gap 10.8 mmol/ L 3-11 normal Not Available [address] [place], [address] 07/03/2023 07:28:10 07/03/1907/03/2023 MAGNE SIUM magnesium 1.9 mg/dL 1.8-2. 4 normal Not Available [address] [place], [address] 07/03/2023 07:28:10 07/04/1907/04/2023 VENOU S BLOOD GAS pH (venous) 7.53 7.31-7 .41 high Not Available [address] [place], [address] 07/04/2023 02:56:01 07/04/1907/04/2023 VENOU S BLOOD GAS pCO2 (venous) 34 mmHg 41-51 low Not Available Puja burris [address], [address] 07/04/2023 02:56:01 07/04/19 24 07/04/2023 VENOU S BLOOD GAS pO2 (venous) 60 mmHg Not Available [address] [place], [address] 07/04/2023 02:56:01 07/04/1907/04/2023 VENOU S BLOOD GAS TCO2 (venous) 25 mmol/ L 24-29 normal Not Available [address] [place], [address] 07/04/2023 02:56:01 07/04/1907/04/2023 VENOU S BLOOD GAS HCO3 (venous) 28 mmol/ L 23-28 normal Not Available [address] [place], [address] 07/04/2023 02:56:01 07/04/1907/04/2023 VENOU S BLOOD GAS BE (venous) 6 mmol/ L -2-3 high Not Available [address] [place], [address] 07/04/2023 02:56:01 07/04/19 24 07/04/2023 VENOU S BLOOD GAS O2 sat (venous) 93 % Not Available Puja burris [address] [facility] [place], [address] 07/04/2023 02:56:01 07/04/1907/04/2023 CARDI AC TROPO MONI [...] Bioti n (Paola min B7). Not Available [address] [facility] [place], [address] 07/04/2023 03:20:02 07/04/19 24 07/04/2023 COMPL ETE BLOOD COUNT W/DIF F WBC 8.91 10_3/ uL 4.4-10 .8 normal Not Available [address] [facility] [place], [address] 07/04/2023 06:19:05 07/04/19 24 07/04/2023 COMPL ETE BLOOD COUNT W/DIF F RBC 4.07 10_6/ uL 3.93-5 .22 normal Not Available [address] [facility] [place], [address] 07/04/2023 06:19:05 07/04/19 24 07/04/2023 COMPL ETE BLOOD COUNT W/DIF F HGB 11.4 g/dL 11.2-1 5.7 normal Not Available [address] [place], [address] 07/04/2023 06:19:05 07/04/19 24 07/04/2023 COMPL ETE BLOOD COUNT W/DIF F HCT 34.8 % 36.0-4 6.0 low Not Available [address] [place], [address] 07/04/2023 06:19:05 07/04/1907/04/2023 COMPL ETE BLOOD COUNT W/DIF F MCV 86 fL 80-95 normal Not Available Med[facility] [address] [place], [address] 07/04/2023 06:19:05 07/04/1907/04/2023 COMPL ETE BLOOD COUNT W/DIF F MCH 28.0 pg 27.0-3 3.0 normal Not Available [address] [place], [address] 07/04/2023 06:19:05 07/04/1907/04/2023 COMPL ETE BLOOD COUNT W/DIF F MCHC 32.8 % 32.0-3 6.0 normal Not Available [address] [place], [address] 07/04/2023 06:19:05 07/04/19 24 07/04/2023 COMPL ETE BLOOD COUNT W/DIF F RDW 16.0 % 11.7-1 4.6 high Not Available [address] [place], [address] 07/04/2023 06:19:05 07/04/1907/04/2023 COMPL ETE BLOOD COUNT W/DIF F platelet count 200 10_3/ uL 130-40 0 normal Not Available [address] [place], [address] 07/04/2023 06:19:05 07/04/1907/04/2023 COMPL ETE BLOOD COUNT W/DIF F MPV 11.3 fL 8.0-11 .0 high Not Available [address] [place], [address] 07/04/2023 06:19:05 07/04/19 24 07/04/2023 COMPL ETE BLOOD COUNT W/DIF F neutrophils % 57.8 Not Available Puja burris [address] [place], [address] 07/04/2023 06:19:05 07/04/19 24 07/04/2023 COMPL ETE BLOOD COUNT W/DIF F lymphocytes % 31.2 Not Available [address] [place], [address] 07/04/2023 06:19:05 07/04/19 24 07/04/2023 COMPL ETE BLOOD COUNT W/DIF F monocytes % 8.9 Not Available [address] [place], [address] 07/04/2023 06:19:05 07/04/19 24 07/04/2023 COMPL ETE BLOOD COUNT W/DIF F eosinophils % 1.2 Not Available [address] [place], [address] 07/04/2023 06:19:05 07/04/1907/04/2023 COMPL ETE BLOOD COUNT W/DIF F basophils % 0.7 Not Available [address] [place], [address] 07/04/2023 06:19:05 07/04/1907/04/2023 COMPL ETE BLOOD COUNT W/DIF F immature grans % 0.2 Not Available [address] [place], [address] 07/04/2023 06:19:05 07/04/1907/04/2023 COMPL ETE BLOOD COUNT W/DIF F nucleated RBC 0.0 % 0.0-0. 3 normal Not Available [address] [place], [address] 07/04/2023 06:19:05 07/04/1907/04/2023 COMPL ETE BLOOD COUNT W/DIF F absolute neutrophil count 5.15 10_3/ uL 1.2-6. 7 normal Not Available [address] [place], [address] 07/04/2023 06:19:05 07/04/1907/04/2023 COMPL ETE BLOOD COUNT W/DIF F absolute lymphocyte count 2.78 10_3/ uL 1.2-3. 4 normal Not Available [address] [place], [address] 07/04/2023 06:19:05 07/04/19 24 07/04/2023 COMPL ETE BLOOD COUNT W/DIF F absolute monocyte count 0.79 10_3/ uL 0.1-0. 8 normal Not Available [address] [place], [address] 07/04/2023 06:19:05 07/04/19 24 07/04/2023 COMPL ETE BLOOD COUNT W/DIF F absolute eosinophil count 0.11 10_3/ uL 0.0-0. 7 normal Not Available [address] [place], [address] 07/04/2023 06:19:05 07/04/19 24 07/04/2023 COMPL ETE BLOOD COUNT W/DIF F absolute basophil count 0.06 10_3/ uL 0.0-0. 2 normal Not Available [address] [place], [address] 07/04/2023 06:19:05 07/04/19 24 07/04/2023 BASIC METAB OLIC PANEL calcium 9.4 mg/dL 8.5-10 .1 normal Not Available [address] [place], [address] 07/04/2023 06:31:05 07/04/19 24 07/04/2023 BASIC METAB OLIC PANEL glucose 152 mg/dL 74-106 high Not Available Medardo tarango [address] [place], [address] 07/04/2023 06:31:05 07/04/19 24 07/04/2023 BASIC METAB OLIC PANEL BUN 31 mg/dL 7-18 high Not Available Medardo tarango [address] [place], [address] 07/04/2023 06:31:05 07/04/19 24 07/04/2023 BASIC METAB OLIC PANEL creatinine 0.8 mg/dL 0.55-1 .02 normal Not Available [address] [place], [address] 07/04/2023 06:31:05 07/04/19 24 07/04/2023 BASIC METAB [...] young er-ag ed adult s. Not Available [address] [place], [address] 07/04/2023 06:31:05 07/04/1907/04/2023 BASIC METAB OLIC PANEL sodium 140 mmol/ L 136-14 5 normal Not Available [address] [place], [address] 07/04/2023 06:31:05 07/04/19 24 07/04/2023 BASIC METAB OLIC PANEL potassium 3.8 mmol/ L 3.5-5. 1 normal Not Available [address] [place], [address] 07/04/2023 06:31:05 07/04/19 24 07/04/2023 BASIC METAB OLIC PANEL chloride 104 mmol/ L 98-107 normal Not Available [address] [place], [address] 07/04/2023 06:31:05 07/04/19 24 07/04/2023 BASIC METAB OLIC PANEL CO2 29.8 mmol/ L 21.0-3 2.0 normal Not Available [address] [place], [address] 07/04/2023 06:31:05 07/04/19 24 07/04/2023 BASIC METAB OLIC PANEL anion gap 6.2 mmol/ L 3-11 normal Not Available [address] [place], [address] 07/04/2023 06:31:05 07/04/19 24 07/04/2023 MAGNE SIUM magnesium 1.9 mg/dL 1.8-2. 4 normal Not Available [address] [place], [address] 07/04/2023 06:31:05 07/04/19 24 07/04/2023 CARDI AC [...] Bioti n (Paola min B7). Not Available [address] [place], [address] 07/04/2023 06:45:04 07/05/19 24 07/05/2023 LAB ADD ON TEST lab add on test DONE Not Available [address] [place], [address] 07/05/2023 09:53:08 07/05/19 24 07/05/2023 C-MICHELINE CTIVE PROTE IN C-reactive protein < 0.50 mg/dL <or=0. 5 Not Available [address] [place], [address] 07/05/2023 11:32:23 07/05/19 24 07/05/2023 PROCA LCITO [...] ional ly, eleva gabbie proca lcito moni rela ntrat ions may not alway s be [...] se, among other cause s. Not Available [address] [place], [address] 07/05/2023 11:57:31 07/30/19 24 07/30/2023 hemog lobin A1C, finge rstic k hemoglobin A1C 6.4 % <5.7 Not Available [address], [address], 07/30/2023 11:23:08 12/03/19 24 12/03/2023 VAGIN AL PATHO GEN SCREE N vaginal pathogen screen Vagin al Patho gen Scree n EZEKIEL DA NEGAT YISSEL GARDN ERELL A NEGAT YISSEL TRICH OMONA S NEGAT YISSEL Not Available [facility] (Registration ) [address] [place] [address] [place], [address], 12/03/2023 19:23:28 12/03/19 24 12/03/2023 hemog lobin A1C, flaquitae rstic k hemoglobin A1C 5.6 % <5.7 Not Available [facility] [address] [place], [address], 12/03/2023 11:17:58 02/29/2002/29/2024 CREAT INE KINAS E creatine kinase 24 U/L 26-192 low Not Available Puja burris [address] [place], [address] 02/29/2024 18:08:38 02/29/2002/29/2024 COMPR EHENS YISSEL METAB OLIC PANEL calcium 9.0 mg/dL 8.5-10 .1 normal Not Available [address] [place], [address] 02/29/2024 18:08:37 02/29/20 24 02/29/2024 COMPR EHENS YISSEL METAB OLIC PANEL glucose 131 mg/dL 74-106 high Not Available Medardo tarango [address] [place], [address] 02/29/2024 18:08:37 02/29/20 24 02/29/2024 COMPR EHENS YISSEL METAB OLIC PANEL BUN 7 mg/dL 7-18 normal Not Available Medardo [address] [facility] [place], [address] 02/29/2024 18:08:37 02/29/20 24 02/29/2024 COMPR EHENS YISSEL METAB OLIC PANEL creatinine 0.8 mg/dL 0.55-1 .02 normal Not Available [address] [facility] [place], [address] 02/29/2024 18:08:37 02/29/2002/29/2024 COMPR EHENS YISSEL METAB OLIC PANEL estimated GFR 82.74 mL/min /1.73M 2 The eGFR is calcu lated from [...] young er-ag ed adult s. Not Available [address] [place], [address] 02/29/2024 18:08:37 02/29/20 24 02/29/2024 COMPR EHENS YISSEL METAB OLIC PANEL total protein 6.1 g/dL 6.4-8. 2 low Not Available [address] [place], [address] 02/29/2024 18:08:37 02/29/2002/29/2024 COMPR EHENS YISSEL METAB OLIC PANEL albumin 2.7 g/dL 3.4-5. 0 low Not Available [address] [place], [address] 02/29/2024 18:08:37 02/29/2002/29/2024 COMPR EHENS YISSEL METAB OLIC PANEL bilirubin, total 0.40 mg/dL 0.2-1. 0 normal Not Available [address] [place], [address] 02/29/2024 18:08:37 02/29/2002/29/2024 COMPR EHENS YISSEL METAB OLIC PANEL alk phos 108 U/L 46-116 normal Not Available [address] [place], [address] 02/29/2024 18:08:37 02/29/2002/29/2024 COMPR EHENS YISSEL METAB OLIC PANEL sodium 144 mmol/ L 136-14 5 normal Not Available [address] [place], [address] 02/29/2024 18:08:37 02/29/2002/29/2024 COMPR EHENS YISSEL METAB OLIC PANEL potassium 3.7 mmol/ L 3.5-5. 1 normal Not Available [address] [place], [address] 02/29/2024 18:08:37 02/29/2002/29/2024 COMPR EHENS YISSEL METAB OLIC PANEL chloride 107 mmol/ L 98-107 normal Not Available [address] [place], [address] 02/29/2024 18:08:37 02/29/2002/29/2024 COMPR EHENS YISSEL METAB OLIC PANEL CO2 32.2 mmol/ L 21.0-3 2.0 high Not Available [address] [place], [address] 02/29/2024 18:08:37 02/29/2002/29/2024 COMPR EHENS YISSEL METAB OLIC PANEL anion gap 4.8 mmol/ L 3-11 normal Not Available [address] [place], [address] 02/29/2024 18:08:37 02/29/2002/29/2024 COMPR EHENS YISSEL METAB OLIC PANEL AST 15 U/L 15-37 normal Not Available Medardo [address] [place], [address] 02/29/2024 18:08:37 02/29/2002/29/2024 COMPR EHENS YISSEL METAB OLIC PANEL ALT 19 U/L 14-59 normal Not Available Medardo tarango [address] [place], [address] 02/29/2024 18:08:37 02/29/2002/29/2024 PROTH ROMBI N TIME prothrombin time 9.5 sec 9.1-11 .1 normal Not Available [address] [place], [address] 02/29/2024 18:02:36 02/29/2002/29/2024 PROTH ROMBI N TIME INR 0.9 0.9-1. 1 normal Recom florencio d INR thera peuti c range s for orall y admin ister ed drugs are as follo ws: -Nitin dard Inten sity 2.0 to 3.0 -High er Inten sity 3.0 to 4.5 Not Available [address] [place], [address] 02/29/2024 18:02:36 02/29/2002/29/2024 COMPL ETE BLOOD COUNT W/DIF F WBC 8.55 10_3/ uL 4.4-10 .8 normal Not Available [address] [place], [address] 02/29/2024 17:51:36 02/29/2002/29/2024 COMPL ETE BLOOD COUNT W/DIF F RBC 4.49 10_6/ uL 3.93-5 .22 normal Not Available [address] [place], [address] 02/29/2024 17:51:36 02/29/2002/29/2024 COMPL ETE BLOOD COUNT W/DIF F HGB 13.2 g/dL 11.2-1 5.7 normal Not Available [address] [place], [address] 02/29/2024 17:51:36 02/29/2002/29/2024 COMPL ETE BLOOD COUNT W/DIF F HCT 40.8 % 36.0-4 6.0 normal Not Available [address] [place], [address] 02/29/2024 17:51:36 02/29/2002/29/2024 COMPL ETE BLOOD COUNT W/DIF F MCV 91 fL 80-95 normal Not Available [address] [place], [address] 02/29/2024 17:51:36 02/29/2002/29/2024 COMPL ETE BLOOD COUNT W/DIF F MCH 29.4 pg 27.0-3 3.0 normal Not Available [address] [place], [address] 02/29/2024 17:51:36 02/29/2002/29/2024 COMPL ETE BLOOD COUNT W/DIF F MCHC 32.4 % 32.0-3 6.0 normal Not Available [address] [place], [address] 02/29/2024 17:51:36 02/29/20 24 02/29/2024 COMPL ETE BLOOD COUNT W/DIF F RDW 13.7 % 11.7-1 4.6 normal Not Available [address] [place], [address] 02/29/2024 17:51:36 02/29/2002/29/2024 COMPL ETE BLOOD COUNT W/DIF F platelet count 119 10_3/ uL 130-40 0 low Not Available [address] [place], [address] 02/29/2024 17:51:36 02/29/2002/29/2024 COMPL ETE BLOOD COUNT W/DIF F MPV 11.5 fL 8.0-11 .0 high Not Available [address] [place], [address] 02/29/2024 17:51:36 02/29/2002/29/2024 COMPL ETE BLOOD COUNT W/DIF F neutrophils % 68.5 % Not Available [address] [place], [address] 02/29/2024 17:51:36 02/29/2002/29/2024 COMPL ETE BLOOD COUNT W/DIF F lymphocytes % 19.8 % Not Available [address] [place], [address] 02/29/2024 17:51:36 02/29/2002/29/2024 COMPL ETE BLOOD COUNT W/DIF F monocytes % 8.5 % Not Available [address] [place], [address] 02/29/2024 17:51:36 02/29/2002/29/2024 COMPL ETE BLOOD COUNT W/DIF F eosinophils % 2.0 % Not Available [address] [place], [address] 02/29/2024 17:51:36 02/29/2002/29/2024 COMPL ETE BLOOD COUNT W/DIF F basophils % 0.4 % Not Available [address] [place], [address] 02/29/2024 17:51:36 02/29/20 24 02/29/2024 COMPL ETE BLOOD COUNT W/DIF F immature grans % 0.8 % Not Available Puja burris [address] [place], [address] 02/29/2024 17:51:36 02/29/2002/29/2024 COMPL ETE BLOOD COUNT W/DIF F nucleated RBC 0.0 % 0.0-0. 3 normal Not Available [address] [place], [address] 02/29/2024 17:51:36 02/29/2002/29/2024 COMPL ETE BLOOD COUNT W/DIF F absolute neutrophil count 5.86 10_3/ uL 1.2-6. 7 normal Not Available [address] [place], [address] 02/29/2024 17:51:36 02/29/20 24 02/29/2024 COMPL ETE BLOOD COUNT W/DIF F absolute lymphocyte count 1.69 10_3/ uL 1.2-3. 4 normal Not Available [address] [place], [address] 02/29/2024 17:51:36 02/29/20 24 02/29/2024 COMPL ETE BLOOD COUNT W/DIF F absolute monocyte count 0.73 10_3/ uL 0.1-0. 8 normal Not Available [address] [place], [address] 02/29/2024 17:51:36 02/29/20 24 02/29/2024 COMPL ETE BLOOD COUNT W/DIF F absolute eosinophil count 0.17 10_3/ uL 0.0-0. 7 normal Not Available [address] [place], [address] 02/29/2024 17:51:36 02/29/20 24 02/29/2024 COMPL ETE BLOOD COUNT W/DIF F absolute basophil count 0.03 10_3/ uL 0.0-0. 2 normal Not Available [address] [place], [address] 02/29/2024 17:51:36 07/02/19 24 07/02/2023 elect agnes jones am EKG PATIEN T NAME: Arley Norman UNIT #: [id number] ORDERI NG PROVID ER: Moustapha Baker M.D. ACCOUN T #: [id number] PRIMAR Y CARE PROVID ER: SHE STANLEY NP Y DATE/T JULI OF SERVIC E: 1127 : 1960 RADHA GODINEZ LOCATI ON: ER ------ ------ --- APPROV ED REPORT ------ ------ -- Exam: Restin g ECG Reason for Exam: sob Patien t Locati on: E HR:113 bpm ECG Measur ements Heart Rate 113 AXIS UT 143 P 64 QRSd 89 QRS 84 [...] ------ - E-Sign Date: E-Sign Time: 1135 [id number] [facility] [address] [facility] [place], [address] 07/02/2023 12:23:00 07/02/19 24 07/02/2023 elect agnes jones am EKG NONI Rodríguez NAME: Arley Norman UNIT #: [id number] ORDERI NG PROVID ER: Moustapha Baker M.D. ACCOUN T #: [id number] PRIMAR Y CARE PROVID ER: JADEN CNA PER DIEM,ABB Y DATE/T JULI OF SERVIC E: 1126 : 1960 PERFOR HERBERT LOCATI ON: ER ------ ------ --- APPROV ED REPORT ------ ------ -- Exam: Restin g ECG Reason for Exam: sob Noni rodríguez Locati on: E HR:113 bpm ECG Measur ements Heart Rate 113 AXIS UT 143 P 64 QRSd 89 QRS 84 [...] Time: 1135 ------ ------ --- ADDEND UM ARABELLAV ED REPORT ------ ------ -- Exam: Restin g ECG Reason for Exam: sob Noni rodríguez Locati on: E HR:113 bpm ECG Measur ements Heart Rate 113 AXIS UT 143 P 64 QRSd 89 QRS 84 [...] ly signed by: [id number] Cosign ed by: [email or web address] [facility] [address], [place], [address] 07/02/2023 12:23:00 07/02/19 24 07/02/2023 x-ray imagi diane billingsley t Noni t Name: Arley Norman Unit #: [id number] Loc: ER Orderi ng Dominique er: Moustapha Baker M.D. t #: [id number] Status : REG ER Primar [...] An AP view was obtain ed. COMPAR AHSLEY: CR,XR XR PORTAB LE CHEST AP from [...] error, please notify us immedi cinthia at [phone] and return the origin al report to us at the addres s above. Thank- you. [email or web address] [facility] [address], [place], [address] 07/02/2023 13:39:28 07/02/19 24 07/02/2023 elect agnes jones am EKG PATIEN T NAME: Arley Norman UNIT #: [id number] [facility]: Moustapha Baker M.D. ACCNEIL T #: [id number] PRIMAR Y CARE PROVID ER: JADEN STILL,SHE Y DATE/T JULI OF SERVIC E: 1609 : 1960 PERFOR HERBERT LOCATI ON: ER ------ ------ --- APPROV ED REPORT ------ ------ -- Exam: Restin g ECG Reason for Exam: trop + Noni t Locati on: E HR:109 bpm ECG Measur ements Heart Rate 109 AXIS UT 159 P 69 QRSd 76 QRS 84 [...] ---- ------ - E-Sign Date: E-Sign Time: [id number] [facility] [address] [facility] [place], [address] 07/03/2023 06:42:41 07/02/19 24 07/02/2023 histo ry physi tonya exami natio n HISTOR Y PHYSIC AL EXAMIN ATION PATIEN T NAME: Arley Norman UNIT #: [id number] ADMITT ING PROVID ER: Erin Ward M.D. ACCOUN T #: [id number] PRIMAR Y CARE PROVID ER: YOUNG CNA PER DIEM,ABB Y DATE OF ADMIT: 0 4 : [...] a cardia c cathet erizat ion at [facility] when she first presen gabbie with the [...] pneumo manisha, [id number], who presen gabbie to [facility] ED today c/o SOB and CP [...] 203. On repeat , it was 434. [facility] cardio logy was consul gabbie and felt that this is likely demand ischem ia and did not recomm end hepari nizati on or plavix . The patien t did get aspiri n in the ED. 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 Smokin g risk [...] y Exam Narrat yissel Exam Narrat yissel: Genera l: A pleasa nt middle -aged Caucas laureen female on 1L of O2, coughi ng incess antly, A Ox3, [place] Neurol ogical : A Ox3, tremul ous, [place], no focal defici ts Psychi atric: Approp [...] H* 434 H* COVID- 19 Source Nasjd jain SARS-C oV-2 (PCR) Negati ve Influe [...] , obtain ing and/or review ing separa tellexx smith hiisto ry, orderi ng medica tions, tests, proced ures, referr ing, commun aline g with other health care profes sistanislaw s, indepe ntentl y interp reting result s, counse ling the patien t and care [facility] cc: JADEN STILL,ABB Y ------ ------ ------ [...] at the addres s above. Thank you. [place] [id number], [place], [address] 07/03/2023 06:43:46 07/02/19 24 07/02/2023 ED visit note ED Visit Note PATIELA T NAME: Arley Norman UNIT #: [id number] ADMITT ING PROVID ER: Moustapha Baker M.D. ACCOUN T #: [id number] PRIMAR Y CARE PROVID ER: SHE STANLEY NP DATE OF ADMIT: 0 4 : 1960 Discha rge Plan Dispos ition Patien t Dispos ition: Admit to [facility] Discha rge Detail s Clinic al Impres clotilde: Acute respir atory failur e with hypoxi a and hyperc arbia, Myocar dial injury , COPD with acute exacer bation Admit Date/T juli: 16:21 Admit Provid er: Erin Ward Attend ing Provid er: Erin Ward Primar y Care Provid er: Chris Stanley ED Provid er: Moustapha Baker Data Discha rge Date/T juli-TO BE ENTERE D AT DEPART URE: 17:38 HPI Genera l Date/T juli Provid er Initia gabbie Kim ntatio n: 11:28 . HPI Narrat yissel: MDM [...] consid ered PE and DVT howeve r noni rodríguez has no leg pain [...] t acute heart failur e. Simila rly patiela rodríguez does not appear volume overlo aded. [...] Dr. Ward who reques gabbie cards consul t [facility]. 4pm I spoke to Dr. Aiden watkins from cards at [facility]. He was not concer david for ACS and felt that noni rodríguez's presen tation was more consis tent w/smiley nd. He advise d trendi ng trops serial ECGs. He advise d agains anne lipscomb on and clopid ogrel. 4:55 PM [...] ions affect ing the care of the patiela t: Reacti ve airway diseas e Histor y obtain ed from an outsid e histor laureen: N/A Risk Modeler al record review : N/A [Diagn ostic [...] N/A Manage ment discus sed with: Cardio weston [facility] and Dr. Ward Treatm ent/in [facility] consid ered: N/A Respon se to therap ies provid ed: Improv ed sympto ms follow ing rescue BiPAP HPI This is a 63-yea r-old female with histor y of reacti ve airway diseas e arrive d to the emerge ncy depart ment via EMS in the settin g of cough shortn ess of breath and wheezi ng. Patiela t report edly was treate d as an outpat ient [...] 10 mg tablet 10 mg PO DAILY (Akanksha esparza) gabape ntin 300 mg capsul [...] dial infarc tion) (Acute ) Per pt. 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 Thank you. [email or web address] [facility] [address], [place], [address] 07/03/2023 06:43:47 07/03/19 24 07/03/2023 progr ess note PROGRE SS NOTE PATIEN T NAME: Arley Norman Johanny UNIT #: [id number] ADMITT ING PROVID ER: Erin Ward M.D. ACCOUN T #: [id number] PRIMAR Y CARE PROVID ER: YOUNG CNA PER DIEM,ABB Y DATE OF ADMIT: 0 4 : [...] a cardia c cathet erizat ion at [facility] when she first presen gabbie with the [...] coughi ng is better , A Ox3, [place] HEENT: EOMI, MMM Cardio vascul ar: RRR, [...] obtain ing and/or review ing separa leeann brower d hiisto ry, orderi ng medica tions, tests, proced ures, referr ing, commun icatin g with other health care profes sional s, indepe ntentl y interp reting result s, counse ling the patien t and care [facility] cc: ------ ------ ------ ------ ------ ------ [...] error, please notify us immedi ately at [phone] and return the origin al report to us at the addres s above. Thank you. [facility] [address], [place], [address] 07/06/2023 06:41:39 07/04/19 24 07/04/2023 progr ess note PROGRE SS NOTE PATIEN T NAME: Arley Norman UNIT #: [id number] ADMITT ING PROVID ER: Erin Ward M.D. ACCOUN T #: [id number] PRIMAR Y CARE PROVID ER: YOUNG CNA PER DIEM,ABB Y DATE OF ADMIT: 0 4 : [...] . Discus sed with cardio logy at [facility]. When the patien t was origin ally [...] a calciu m score of 0 at [facility]. The EF did improv e on the [...] Interv al histor y since last seen: Alan peralta, develo ped flipp ed T-wave s [...] downtr end. Case was discus sed with [facility] cardio logy, who recomm ended keepin g the patien t overni ght for furthe r monito ring and an [...] tests) , obtain ing and/or review ing ivone foote ry, ordervianey ng medica tions, tests, proced ures, referr ing, commun aline g with other health care profes sional s, indepe ntentl y interp reting result s, counse ling the patien t and care [facility] cc: ------ ------ ------ ------ ------ ------ [...] error, please notify us immedi ately at [phone] and return the origin al report to us at the addres s above. Thank you. [address], [place], [address] 07/06/2023 06:41:39 07/04/19 24 07/03/2023 initi al care manag ement asses s Initia l Care Manage ment Assess PATIEN T NAME: Brennenjessie paintingArley anitra [place] UNIT #: [id number] ADMITT ING PROVID ER: Levonught on,Ahmet christine ACCOUN T #: [id number] PRIMAR Y CARE PROVID ER: JADEN STILL,ABB [...] SUPPOR TS:: Binta rodríguez reside s in [facility] with her lyubovban luis Gasca . 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 She and her jojo d have two adult sons, Richard and Carlton, one of whom lives local y and is suppor tive of the couple . Binta rodríguez is indepe ndent with her ADL[facility] at [facility] [place]. CHUY Rodríguez FUNCTI ONAL STATUS :: Binta rodríguez was lying in bed, jojo smith at bedsid e. Jojo smith, Campos strugg ling to regula te emotio ns, weepin g and concer david, janina rodríguez will return home after ECHO comple agbbie on Wednesday , per . ADVANC E [...] needs, follow up appoin tments , ECHO. PATIELA T/FAMI LY EDUCAT ION NEEDS: : Review discha rge instru ctions and limita tions, discus clotilde of self care needs includ ing ask me three . JANINA NEHEMIASSWATHI IVY RS TO DISCHA RGE:: None. TRANSP ORTATI ON:: Via privat e vehicl e by her jojo smith. PLAN:: Janina rodríguez will return home once medica wilday carlos smith. 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 Thank you. [email or web address] [facility] [address], [place], [address] 07/06/2023 06:41:40 07/05/19 24 07/05/2023 elect agnes jones am EKG NONI T NAME: Arley Norman UNIT #: [id number] ORDERI NG PROVID ER: Surinder suggs,Da monica ACCOUN T #: [id number] PRIMAR Y CARE PROVID ER: JADEN STILL,ABB Y DATE/T JULI OF SERVIC E: 722 : 1960 [facility] LOCATI ON: MS ------ ------ --- APPROV ED REPORT ------ ------ -- Exam: Restin g ECG Reason for Exam: previo us EKG was done withou t V2 Patiela t Locati on: I HR:72 bpm ECG Measur ements Heart Rate 72 AXIS UT 150 P 48 QRSd 80 QRS 88 [...] ------ - E-Sign Date: E-Sign Time: 820 [facility] [address] [place], [address] 07/06/2023 06:41:38 07/05/1907/05/2023 elect agnes jones am EKG NONI Rodríguez NAME: Brennen paintingArley cortezanne Johanny UNIT #: [id number] ORDERI NG PROVID ER: Vernon Dick ACCOUN T #: [id number] PRIMAR Y CARE PROVID ER: SHE STANLEY NP Y DATE/T JULI OF SERVIC E: 0551 : [address] [facility] LOCATI ON: MS ------ ------ --- APPROV ED REPORT ------ ------ -- Exam: Restin g ECG Reason for Exam: Latera l ischem ia with hypoxe contreras Patiela rodríguez Locati on: I HR:69 bpm ECG Measur ements Heart Rate 69 AXIS UT 156 P 60 QRSd 73 QRS 85 QT 561 T 198 QTc 601 Conclu clotilde Incomp lete analys is due to quinton sandoval data in precor dial lead(s ) Sinus rhythm ...nor mal P axis, V-rate 50- 99 Low voltag e, extrem ity leads. ..all extrem ity leads <0.5mV Abnrm T, probab le ischem ia, sienna latera l lds... T <-0.50 mV, I aVL V2-V6 Prolon ged QT interv al...Q Tc >500mS Quinton jaime lead(s ): V2 ------ ------ ------ ------ ------ ------ ------ ------ ------ ------ ------ ------ ------ ------ ------ ------ ---- ------ - E-Sign Date: E-Sign Time: 820g434 [facility] [address] [place], [address] 07/06/2023 06:41:37 07/05/1907/05/2023 caterina jones am EKG NONI Anne NAME: Arley Norman UNIT #: [id number] ORDERI NG PROVID ER: Vernon Dick ACCOUN T #: [id number] PRIMAR Y CARE [facility] ER: JADEN STILL,SHE Y DATE/T JULI OF SERVIC E: 4 : [address] [facility] [place] LOCATI ON: MS ------ ------ --- APPROV ED REPORT ------ ------ -- Exam: Restin g ECG Reason for Exam: t wave change s Noni rodríguez Locati on: I HR:81 bpm ECG Measur ements Heart Rate 81 AXIS UT 143 P 56 QRSd 87 QRS 92 [...] ------ - E-Sign Date: E-Sign Time: 820 [facility] [address] [place] [address] [place], [address] 07/06/2023 06:41:36 07/05/1907/02/2023 caterina jones am EKG PATIELA T NAME: Arley Norman UNIT #: [id number] [facility] ER: Moustapha Baker M.D. ACCOUN T #: [id number] PRIMWA Y [facility] ER: SHE STANLEY NP DATE/T JULI OF SERVIC E: 1609 : 1960 [facility] LOCATI ON: MS ------ ------ --- APPROV ED REPORT ------ ------ -- Exam: Restin g ECG Reason for Exam: trop + Noni rodríguez Locati on: E HR:109 bpm ECG Measur ements Heart Rate 109 AXIS UT 159 P 69 QRSd 76 QRS 84 [...] ------ - E-Sign Date: E-Sign Time: 1655 ------ ------ --- ADDEND UM APPROV ED REPORT ------ ------ -- Exam: Restin g ECG Reason for Exam: trop + Patien t Locati on: E HR:109 bpm ECG Measur ements Heart Rate 109 AXIS UT 159 P 69 QRSd 76 QRS 84 [...] retati on. Electr onical ly signed by: [id number] Cosign ed by: [email or web address] [address] [place], [address] 07/06/2023 06:41:41 07/05/1907/05/2023 ultra sound imagi ng repor t Patiela t Name: Arley Norman Unit #: [id number] Loc: MS Jerman Fox er: Erin Ward M.D. anne #: [id number] Status : ADM IN [facility] er: Jaden Chris Date of Exam: Sex: F Admiss ion Date: : 1960 Age: 63 ------ ------ --- APPROV ED REPORT ------ ------ -- EXAM: Compre hensiv e 2D, Dopple r, and color- flow Echoca rdiogr am Sayraela rodríguez Locati on: In-Pat ient Room/B ed: [...] error, please notify us immedi hillly at [phone] and return the origin al report to us at the addres s above. Thank- you. [email or web address] [facility] [address], [place], [address] 07/06/2023 06:41:35 07/05/19 24 07/05/2023 cardi ology consu ltati on CARDIO LOGY CONSUL DEVIKA Rodríguez NAME: Arley Norman UNIT #: [id number] ORDERI NG PROVID ER: ACCOUN T #: [id number] PRIMAR Y CARE PROVID ER: JADEN [...] ion imagin g study Histor y of Presen t Illnes s Narrat yissel: This is a 63-yea r-old woman who presen gabbie to the hospit al over the week d with diffic ulty breath ing. 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 Thank you. [email or web address] [facility] [address], [place], [address] 07/06/2023 06:41:34 07/05/19 24 07/05/2023 care manag ement disch arge Care Manage ment Discha rge NONI T NAME: Arley Norman UNIT #: [id number] ADMITT ING PROVID ER: Ricki Hooper T #: [id number] PRIMAR Y CARE PROVID ER: JADEN [...] Respir atory Failur e Discha rge Plan: Binat rodríguez return ed home today with no [...] error, please notify us immedi cinthia at [phone] and return the origin al report to us at the addres s above. Thank you. [email or web address] [place] [address], [place], [address] 07/06/2023 06:41:33 07/06/19 24 07/05/2023 disch arge summa ry DISCHA RGE SUMMAR Y PATIEN T NAME: Arley Norman UNIT #: [id number] ADMITT ING PROVID ER: CHIP MARTINEZ MD, ALEXI CLAIRE ACCOUN T #: [id number] PRIMAR Y CARE PROVID ER: YOUNG CNA PER DIEM,ABB Y DATE OF ADMIT: 0 4 : [...] per echo 3 who prsent ed [facility] on 3 w/ one week of cough [...] was on supple mental oxygen per EMS, patien t also w/ incess ant coughi ng and wheezi ng. Patien t was treate d w/ DuoNeb aeroso ls [...] discha rge, Dr. Leblanc, cardio logist was donte cartwright, see her report for detail s. In summar y she feels that again her NSTEMI was actual ly a type II demand ischem ia felipe t on by her hypoxe contreras and hyperc arbia and the patien t is exhibi willow Barros ubo cardio myopat hy. Eliseo r, patiela t should have a follow up stress MPI study. The patien t's jojo cartwright that he will call the patien t's cardio logist , Dr. Hernandez at [facility] and get her an expedi gabbie outpat [...] pen 10 unit SUBCUT QPM Pati t Comm ts: INJECT 10 UNITS UNDER THE SKIN [...] . 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 Any use or distri bution by any person other than this provid er is strict ly prohib ited. If you receiv e this report in error, please notify us immedi hillly at and return the origin al report to us at the addres s above. Thank you. [email or web address] [facility] [address] [place], [address] 07/07/2023 10:42:01 01/24/2001/24/2024 x-ray imagi ng repor t Patien t Name: Arley Norman Unit #: [id number] Loc: DIORS Orderi ng Provid er: Bhargav Syed M.D. Accoun t #: [id number] Status : PRE CLI Primar y [...] Dictat ed By: Rober Stanton M.D. 1139 113 Transc ribed By: Maximino MARTE,Tawanna garcia 113 This is privil eged, confid ential inform ation intend ed only for the provid er named. Any use or distri bution by any person other than this provid er is strict ly prohib ited. If you receiv e this report in error, please notify us immedi ately at [phone] and return the origin al report to us at the addres s above. Thank- you. INTERFACE [facility] [address], [place], [address] 01/24/2024 11:53:52 01/24/20 24 04/22/2021 imagi ng/di [...] Not Available 01/23 17:45:33 01/24/20 24 12/08/2021 MAMMO , scree oly No observ ation record ed. Not Available 01/23 17:45:37 01/24/20 24 03/04/2021 US, abdom en No observ ation record ed. Not Available 01/23 17:45:38 01/24/20 01/07/2023 US, duple x, nicole s, ariella pemberton No observ ation record ed. Not Available [...] ation record ed. Not Available 01/23 17:52:15 02/29/20 24 02/29/2024 CT imagi ng repor t Patien t Name: Arely Norman Unit #: [id number] Loc: ER Orderi ng Provid er: Mohit Wasserman i, M.D. Accoun t #: [id number] Status : PRE ER Primar y Care Provid er: Young, Chris Date of Exam: Sex: F : 1960 Age: 63 Exam(s ) a CT:CT head cervic al spine wo Exam(s ) CT HEAD CERVIC AL SPINE WO EXAM: CT HEAD CERVIC AL SPINE WO CLINIC AL HISTOR Y: fall. TECHNI QUE: Imagin g Protoc ol: Axial comput ed tomogr aphy images with grey l and sagitt al reform atted images were create d and review ed COMPAR ASHLEY: CT CT HEAD WO from 2022 FINDIN GS: CT Head: Ventri cles and Extra axial spaces : Normal in size and morpho logy for the patien t's age. Hemorr kiara: None. Cerebr al parenc hyma: There is no eviden ce of an acute territ orial infarc t or mass effect . Midlin e shift: None. Brains tem/Ce rebell um: Normal . Calvar ium: Normal . Visual ized Parana fabio sinuse s/Mast oids: Clear. Soft Tissue s: Unrema rkable . CT Cervic al Spine: Bones: No acute fractu re or sublux ation. Age-ap propri ate degene rative change s are seen in the spine. Soft Tissue s: There is a 6 mm nodule in the left lobe of the thyroi d gland. No follow -up is recomm ended. Lung Apices : Clear. IMPRES CLOTILDE: 1. No acute intrac ranial proces s. 2. No acute fractu re or sublux ation in the cervic al spine. RADIAT ION DOSE DELIVE RED: 1,209. 19mGy. cm Total DLP DATA REPOSI TORY: All CT scans at this facili ty are submit gabbie to the [facility] Radiol ogy Data Regist ry (NRDR) Dose Index Regist ry (DIR) with the [place] [employer] [employer] Radiol ogy (ACR). RADIAT ION OPTIMI ZATION : All CT scans at this facili ty use at least one of these dose optimi zation techni ques: automa gabbie exposu re contro l; mA and/or kV adjust ment per patien t size (inclu rich target ed exams where dose is matche d to clinic al indica tion); or iterat yissel recons tructi on. 1022-0 022: Total DLP = 0.00 mGy-cm Ordere d By: Mohit Wasserman i, M.D. CC: ------ ------ ------ ------ ------ ------ ------ ------ ------ ------ ------ ------ ---- Dictat ed By: Aiden Bergeron M.D. 1721 Transc ribed By: Aiden Bergeron 1721 This is privil eged, confid ential inform ation intend ed only for the provid er named. Any use or distri bution by any person other than this [facility] er is strict ly prohib ited. If you receiv e this report in error, please notify us immedi ately at [phone] and return the origin al report to us at the addres s above. Thank- you. INTERFACE [address] [place], [address] 02/29/2024 17:26:33 02/29/2002/29/2024 x-ray imagi ng repor t Patien t Name: Arley Norman Unit #: [id number] Loc: ER Orderi ng Provid er: Mohit Wasserman i, M.D. Accoun t #: [id number] Status : PRE ER Primar y Care Provid er: Chris Stanley Date of Exam: Sex: F Admiss ion Date: : 1960 Age: 63 Exam(s ) XR HIP RT COMPLE TE AP PELVIS EXAM: XR HIP RT COMPLE TE AP PELVIS CLINIC AL HISTOR Y: right hip pain. TECHNI QUE: 2D digita l imagin g was perfor med of the right hip. Three images were obtain ed. AP pelvis and latera l right hip views were obtain ed. COMPAR ASHLEY: CR XR HIP LT COMPLE TE AP PELVIS from 2022 FINDIN GS: BONES: There is an acute impact ed subcap ital fractu re of the right femur. No bony destru ctive lesion is seen. JOINTS : No disloc ation presen t. The patien t has a left hip prosth esis. SOFT TISSUE : Normal . IMPRES CLOTILDE: Acute mildly impact ed subcap ital fractu re of the right femur. DATA REPOSI TORY: RADIAT ION DOSE DELIVE RED: Ordere d By: Mohit Wasserman i, M.D. CC: ------ ------ ------ ------ ------ ------ ------ ------ ------ ------ ------ ------ - Dictat ed By: Aiden Bergeron M.D. 1724 Transc ribed By: Aiden Bergeron 1724 This is privil eged, confid ential inform [...] the addres s above. Thank- you. INTERFACE [facility] [address] , [place], [address] 02/29/2024 17:29:34 Result Notes None recorded. Problems Name Problem SNOMED Code Status Onset Date Resolution Date Notes Provider Name and Address Organization Details Recorded Time Gastroes ophageal reflux disease without esophagi tis 090885639 Active 2002 Orlin Alicea [facility] 4 18:50:25 Major depressi on, single episode 13370701 Active 2009 Orlinlexx Alicea [facility] 4 18:51:57 Nicotine dependen ce 64603211 Completed 201103/31/2023 Problem Code: Z87.891; Problem Code Type: ICD-10; [address], [place], [address], [facility] 3 13:52:48 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 2801648034 37720 Active [address], [place], [address], [facility] 4 10:46:42 Bipolar disorder 21382665 [facility] 4 18:49:12 Hyperlip idemia 00124067 Active [address], [place], [address], [facility] 4 10:49:59 Diaphrag matic hernia 09058069 Active 2013 [facility] 4 18:49:50 Shoulder joint pain 153640839 Completed 201403/31/2023 Problem Code: M25.519; Problem Code Type: ICD-10; [address], [place], [address], [facility] 3 13:43:54 Acute sinusiti s 90834054 Completed 201506/26/2015 Problem Code: J01.90; Problem Code Type: ICD-10; [address] [place], [facility] [address] 3 13:53:21 Acquired absence of cervix and uterus 748132659 Completed 201507/15/2023 Problem Code: Z90.710; Problem Code Type: ICD-10; [facility] 4 18:48:56 Pain in thoracic spine 979725629 Completed 201803/31/2023 Problem Code: M54.9; Problem Code Type: ICD-10; [address], [place], [address] 3 13:44:02 Vitamin D deficien cy 23898473 Active 2019 [facility] 4 18:52:57 Generali zed anxiety disorder 73768609 Active 2019 [facility] 4 18:50:32 Cholelit hiasis without obstruct ion 02880273 Active 2020 [facility] 4 18:49:27 Insomnia 869290400 Active 2020 [facility] 4 18:51:51 Hernia of anterior abdomina l wall 750223236 Active 2021 [facility] 4 18:51:22 Polyneur opathy 10310844 Active 2022 [facility] 4 18:52:04 Pain of left hip joint 8075487998 90633 Completed 202203/31/2023 Problem Code: M25.552; Problem Code Type: ICD-10; [address], [facility] [address], [facility] 3 13:44:40 Respirat ory crackles 90465573 Active 2022 [address] [place], [facility] [address], [facility] 3 14:48:31 Edema 243280490 Active 2022 Orlin pantoja, [facility] 4 18:50:11 Proteinu maggi 54827819 Active 2022 Orlin pantoja, [facility] 4 18:52:16 Senile osteopor osis 63211133 Active [address], [facility] [address] [address] 4 10:53:05 Blood in urine 83797200 [facility] 2022 [facility] 4 18:49:21 Tremor 05142490 Active 2019 facial movement s [facility] 4 18:52:51 [facility] [place] 637616254 Completed 202003/31/2023 06/09/19 23 - Comments only - Chris BEY - Reported as signific antly improved after completi ng PT. Problem Code: R27.9; Problem Code Type: ICD-10; [address], [facility] [address], [facility] 3 13:45:29 Anemia 255590883 Completed 202007/03/2021 Problem Code: D64.9; Problem Code Type: ICD-10; Not Available [facility] 3 04:28:58 Nausea and vomiting 82739040 Completed 202007/03/2021 Problem Code: R11.2; Problem Code Type: ICD-10; Not Available [facility] 3 04:28:59 Mixed bipolar I disorder in partial remissio n 55300510 Completed 201912/10/2022 Problem Code: F31.77; Problem Code Type: ICD-10; Not Available [facility] 3 04:29:00 Enterost ghassan tao 37037399 Completed 202202/03/2023 Problem Code: K94.13; Problem Code Type: ICD-10; Not Available [facility] 3 04:29:00 Gastroes ophageal reflux disease 642146156 Completed 200202/03/2023 Problem Code: 530.81; Problem Code Type: ICD-9; [address], [place], [address] 3 14:48:31 Pain of right shoulder joint 8211834050 9414517 Completed 201402/03/2023 Problem Code: M25.511; Problem Code Type: ICD-10; Not Available [facility] 3 04:29:00 Tobacco user 538675143 Completed 201102/03/2023 Not Available [facility] 3 04:29:01 Left heart failure 30117607 Completed 202212/10/2022 Problem Code: I50.1; Problem Code Type: ICD-10; Not Available [facility] 3 04:29:01 Hiatal hernia 09374569 Completed 201302/03/2023 Not Available [facility] 3 04:29:02 Melena 0812677 Completed 202007/03/2021 Problem Code: K92.1; Problem Code Type: ICD-10; Not Available [facility] 3 04:29:03 Left heart failure 57018522 Completed 202212/10/2022 Problem Code: I50.1; Problem Code Type: ICD-10; Not Available [facility] 04:29:03 Secondar y bridget soares 964398826 Completed 202112/10/2022 Problem Code: G21.19; Problem Code Type: ICD-10; Not Available [facility] 04:29:05 Noninfla mmatory disorder of the vagina 69230664 Completed 202007/03/2021 Problem Code: N89.8; Problem Code Type: ICD-10; [address], [place], [address], [facility] 12:50:12 Bypass gastroje junostom y Active [address], [facility] [address], [facility] 11:27:02 Cyst of vagina 42368149 Completed 202203/31/[address], [facility] [address], [facility] 3 12:50:21 Farrell' s esophagu s 658484218 Completed 202203/31/[address], [facility] [address], [facility] 14:48:31 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 226639554 Completed 202203/31/[address], [facility] [address], [facility] 3 13:52:25 Farrell' s esophagu s 664295489 Active [address], [place], [address], [facility] 11/22/202 3 14:48:31 Gastroes ophageal reflux disease 778412760 Active [address], [facility] [address], [facility] 3 14:48:31 History of atrial flutter 668891583 Active [address], [facility] [address], [facility] 4 10:50:21 History of cardiomy opathy 9483502504 92513 Active 2022 Stress induced [address], [place] [address], [facility] 4 10:48:26 Hearing loss 59242442 Active [address], [facility] [address], [facility] 4 10:52:32 Hearing loss 45841023 Active [address], [facility] [address], [facility] 3 14:51:27 Cough 38509923 Completed 202207/15/2023 Orlin Alicea null, [facility] 4 18:53:36 Hip pain 42813989 Active 2022 Farideh Massey RN null, [facility] 3 15:18:22 Prosthet ic arthropl asty of hip Active 2022 Farideh Massey RN null, [facility] 3 15:18:56 Strictur e of esophagu s 99443804 Active [address], [facility] [address], [facility] 4 13:06:33 Acute upper respirat ory infectio n 06243897 Completed 202307/15/2023 Orlin pantoja [facility] 4 18:53:17 Atrial flutter 5571066 Active 2022 Orlin pantoja [facility] 4 18:54:59 Low blood pressure 55554032 [facility] 20[facility] 4 18:55:17 Aftercar e Completed 202207/15/2023 02/25/20 23 - Comments only - Chris BEY - Minimal dehiscen ce of hip incision today. I do not think there is presence of infectio n at this time, but due to location within skin fold I think she is high risk. Recommen ded covering with Mepilex to prevent skin over skin macerati on and irritati on. Recommen ded dressing every other day. Problem Code: Z51.89; Problem Code Type: ICD-10; Orlin pantoja [facility] 4 18:54:42 Pneumoni tis caused by inhaled substanc e 577732594 Completed 202207/15/2023 Problem Code: J69.0; Problem Code Type: ICD-10; Orlin pantoja [facility] 4 18:54:15 Candidia sis of skin 71935340 Active [address], [place], [address], [facility] 4 15:24:45 Hypoxia 307070546 Active [address], [place], [address], [facility] 4 15:26:49 Muscle weakness 74704323 Active [address], [place], [address], [facility] 4 15:33:20 Type 2 diabetes mellitus 25556880 Active [address], [facility] [address], [facility] 4 13:39:04 Aspirati on pneumoni a 341221591 Completed 202307/15/2023 Orlin Alicea null, [facility] 4 18:53:31 Total abdomina l hysterec yady Active [address], [facility] [address], [facility] 4 10:48:57 History of gallston es 603177971 Active 2020 Orlin Alicea null, [facility] 4 18:56:20 Pressure injury of buttock 925777761 Active [address], [place], [address], [facility] 4 09:34:51 Candidia sis of vagina 25434299 Active [address], [place], [address], [facility] 4 09:36:38 Pruritus of vagina 01440813 Active [address], [facility] [address], [facility] 4 09:48:28 History of pancreat itis 5465856589 9107 Active 2023 TYRON DRAPER MA null, [facility] 4 09:52:28 Gastrost ghassan feeding Active 2023 Farideh Massey RN null, [facility] 4 14:48:17 Gastrost ghassan Active 2023 Farideh Massey RN [facility], [facility] 4 14:55:33 Problem Notes None recorded. Procedures Surgical History Date Name Laterality Status Provider Name and Address Organization Details Recorded Time 3 Most Recent Mammogram completed Prachi Blancas RN [facility] 04/23/2023 14:35:47 3 Most Recent Bone Density completed RUBIO VALDIVIA CMA [facility] 07/06/2023 11:40:24 2 Date of Last Colonoscopy completed RUBIO VALDIVIA CMA [facility] 07/06/2023 11:45:32 Imaging Results Imaging Date Name Status LastModified by Organization Details LastModified Time 07/02/2023 electrocardiogram completed [address] [place], [address] 07/02/2023 12:23:00 07/02/2023 electrocardiogram completed [email or web address] [address] [place], [address] 07/02/2023 12:23:00 07/02/2023 x-ray imaging report completed [email or web address] Jonatan iglesias[address] [place], [address] 07/02/2023 13:39:28 07/02/2023 electrocardiogram completed [email or web address] [place] [address] [place], [address] 07/03/2023 06:42:41 07/02/2023 history physical examination completed [email or web address] [address] [place], [address] 07/03/2023 06:43:46 07/02/2023 ED visit note completed [email or web address] [address] [place], [address] 07/03/2023 06:43:47 07/03/2023 progress note completed [id number] [place], [address] 07/06/2023 06:41:39 07/04/2023 progress note completed [address] [place], [address] 07/06/2023 06:41:39 07/03/2023 initial care management assess completed [address] [place], [address] 07/06/2023 06:41:40 07/05/2023 electrocardiogram completed [address] [place], [address] 07/06/2023 06:41:38 07/05/2023 electrocardiogram completed [address] [place], [address] 07/06/2023 06:41:37 07/05/2023 electrocardiogram completed [address] [place], [address] 07/06/2023 06:41:36 07/02/2023 electrocardiogram completed [address] [place], [address] 07/06/2023 06:41:41 07/05/2023 ultrasound imaging report completed [address] [place], [address] 07/06/2023 06:41:35 07/05/2023 cardiology consultation completed [address] [place], [address] 07/06/2023 06:41:34 07/05/2023 care management discharge completed [address] [place], [address] 07/06/2023 06:41:33 07/05/2023 discharge summary completed [address] [place], [address] 07/07/2023 10:42:01 01/24/2024 x-ray imaging report completed [address] [place], [address] 01/24/2024 11:53:52 04/22/2021 imaging/diagnostic result completed Information [...] result completed Information not available 01/24/2024 17:52:15 02/29/2024 CT imaging report completed INTERFACE [place] [address] [facility] [place], [address] 02/29/2024 17:26:33 02/29/2024 x-ray imaging report completed INTERFACE [address] [place], [address] 02/29/2024 17:29:34 Procedure Notes None recorded. Medical Equipment None Reported. Allergies Allergen ID Allergen Name Allergen Category Reaction Reaction Severity Criticality Documentation Date Start Date Code Code System Note Provider Name and Address Organization Details Recorded Time 52163 metformin hydrochlo ride medicatio n diarrhea moderate Not available 03/19/20232019 82764 3 RxNorm Diarr hea Not Available Critical access hospital 3 16:31:03 10543 Demerol medicatio n vomiting mild Not available 03/19/20232005 04722 1 RxNorm [facility] 4 18:45:52 Medications Name Sig Start Date Stop Date Status Note LastModified by Organization Details LastModified Time Prescript ion - Prior Authoriza tion Request active Not Available Not Available Not Available atorvasta [...] mg tablet,ex tended release 24 hr GIVE ONE-HALF TABLET VIA G-TUBE TWO TIMES A DAY [...] ous solution 10 units nightly 03/31 completed [facility] 10/2022 Not Available Not Available [...] by mouth once a day 03/31 completed [facility] 09/25/22 Not Available Not Available Not [...] day as directed 09/29 completed Changed per [facility] d/c summary 07/19/21 Not Available Not [...] % topical cream Apply a thin gold leaf layer to 4 times a day as [...] e Short Pen Needle 31 gauge x /16 Use 1 needle subcutan eously once a [...] Not Available Not Available No t Available Protonix 40 mg granules delayed-r elease packet DISSOLVE 1 PACKET DIRECTED AND TAKE VIA G-TUBE TWO TIMES A DAY , ADMINIST ER IN 10ML OF APPLE JUICE active Not Available Not Available No t Available Mapap (acetamin ophen) 500 mg/15 mL oral liquid GIVE 30ML VIA G-TUBE EVERY 8 HOURS NEEDED active Not Available Not Available No t Available acetamino phen 160 mg/5 mL (5 mL) oral suspensio n 1000mg in the AM and 1000mg at HS 04/14 completed [facility] 09/25/22 Not Available Not Available Not [...] 6 mL three times daily 05/13 completed [facility] 09/25/22 Not Available Not Available Not [...] mg tablet TAKE ONE TABLET VIA G-TUBE TWICE A DAY active Not Available Not Available No t Available Nutren 1.5 0.07 gram-1.5 kcal/mL liquid for tube feed Take 1500 mL every day by oral route. 2023 active Not Available Not Available Not Avai lable metoprolo l succinate ER 50 mg capsule sprinkle, ext. release 24 hr Take 1 capsule by mouth once a day 03/31 completed [facility] 09/25/22 Not Available Not Available Not [...] % 96 % 90 /min 28.9 kg/m2 68520.6 3 g 110 mm[Hg] 68 mm[Hg] Prachi Blancas RN [facility] 4 09:54:18 Date Recorded Body height Body mass index (BMI) Body weight Body temperature Oxygen saturation Oxygen saturation in Arterial blood by Pulse oximetry Heart rate Systolic blood pressure Diastolic blood pressure Provider Name and Address Organization Details Last Updated DateTime 4 154.94 cm 28.3 kg/m2 84416.1 4 g 96.9 [degF] 99 % 99 % 69 /min 90 mm[Hg] 62 mm[Hg] Prachi Blancas RN [facility] 4 09:02:42 Date Recorded Body height Body temperature Oxygen saturation Oxygen saturation in Arterial blood by Pulse oximetry Heart rate Body mass index (BMI) Body weight Systolic blood pressure Diastolic blood pressure Provider Name and Address Organization Details Last Updated DateTime 4 154.94 cm 96.6 [degF] 96 % 96 % 57 /min 28.4 kg/m2 41331.5 7 g 102 mm[Hg] 60 mm[Hg] Prachi Blancas RN [facility] 4 10:51:36 Date Recorded Body height Body mass index (BMI) Body weight Body temperature Oxygen saturation Oxygen saturation in Arterial blood by Pulse oximetry Heart rate Systolic blood pressure Diastolic blood pressure Provider Name and Address Organization Details Last Updated DateTime 4 154.94 cm 26.9 kg/m2 28212.5 5 g 96.3 [degF] 99 % 99 % 61 /min 110 mm[Hg] 62 mm[Hg] Prachi Blancas RN [facility] 10:54:49 Date Recorded Body height Body mass index (BMI) Body weight Body temperature Oxygen saturation Oxygen saturation in Arterial blood by Pulse oximetry Heart rate Systolic blood pressure Diastolic blood pressure Provider Name and Address Organization Details Last Updated DateTime 4 154.94 cm 26.5 kg/m2 77566.6 5 g 97.3 [degF] 99 % 99 % 54 /min 112 mm[Hg] 64 mm[Hg] Prachi Blancas RN [facility] 11:11:58 Social History Question Answer Notes LastModified by Organizat ion Details LastModified Time Tobacco Smoking Status Former Smoker ESTHER YANG RN [facility], [facility] 05/13/2023 11:38:26 When Did You Quit Smoking? 1-5yearssin celastcigar ette Information not available 05/13/2023 Date Care Plan Printed: 11/18/2023 Information not available 11/18/2023 Assigned Brim Edge Trimmer: Aggie [email or web address] Information not available 11/18/2023 Is [facility] The Lead Brim Edge Trimmer? Yes Information not available 11/18/2023 Level Of Intensity: Bi-Annually And As Needed. Will Call Me Information not available 11/18/2023 Team Based Care: No Information not available 11/18/2023 Social Barrier Yes Informatio n not available 11/18/2023 Other Barriers To Care (See Note) Yes Pt Has Anxiety And Depression Which Worsens At Times Information not available 11/18/2023 Financial Barrier Yes Information not available 11/18/2023 Community Metallurgical Engineering Technician Yes Information not available 11/18/2023 Diabetes Education [...] cause of internal bleeding - ? aneurysm. [place] age 60s, HTN, hyperlipidemia Had late onset [...] preservative free, adsorbed 07/12/2019 completed Not Available Critical [facility] hospital 03/19/2023 06:16:19 Tdap 01/09/2009 completed Not Available Critical [facility] hospital 06:16:20 Influenza, split virus, trivalent, preservative 01/31/2015 completed Not Available [facility] hospital 03/19/2023 06:16:20 Influenza, split virus, trivalent, preservative 03/26/2016 completed Not Available Critical access hospital 03/19/2023 06:16:20 Influenza, split virus, quadrivalent, PF 05/15/2019 completed Not Available Critical access hospital 03/19/2023 06:16:20 Influenza, split virus, quadrivalent, PF 01/12/2020 completed Not Available Critical access hospital 03/19/2023 06:16:20 Influenza, split virus, quadrivalent, PF 02/24/2022 completed Not Available Critical access hospital 03/19/2023 06:16:20 Influenza, split virus, quadrivalent, PF 03/14/2021 completed Not Available Critical access hospital 03/19/2023 06:16:20 Influenza, split virus, quadrivalent, preservative 02/04/2017 completed Not Available Critical access hospital 03/19/2023 06:16:20 zoster recombinant 07/03/[address] [facility] 03/19/2023 06:16:20 zoster recombinant 11/06/[address] [facility] 03/19/2023 06:16:20 COVID-19, mRNA, LNP-S, PF, 100 mcg/0.5mL dose or 50 mcg/0.25mL dose 07/18/2020 completed Not Available Critical access hospital 03/19/2023 06:16:21 COVID-19, mRNA, LNP-S, PF, 100 mcg/0.5mL dose or 50 mcg/0.25mL dose 08/15/2020 completed Not Available Critical access hospital 03/19/2023 06:16:21 COVID-19, mRNA, LNP-S, PF, 100 mcg/0.5mL dose or 50 mcg/0.25mL dose 11/06/2021 completed Not Available Critical access hospital 03/19/2023 06:16:21 COVID-19, mRNA, LNP-S, PF, 100 mcg/0.5mL dose or 50 mcg/0.25mL dose 03/14/2021 completed Not Available Critical access hospital 03/19/2023 06:16:21 Pneumococcal conjugate PCV20, polysaccharide LON042 conjugate, adjuvant, PF 02/24/2022 completed Not Available Critical access hospital 03/19/2023 06:16:21 COVID-19, mRNA, LNP-S, bivalent, PF, 30 mcg/0.3 mL dose 02/24/2022 completed Not Available Critical access hospital 03/19/20 06:16:21 pneumococcal polysaccharide PPV23 01/09/2009 completed Not Available Critical access hospital 2022 06:16:21 Influenza, split virus, quadrivalent, PF 02/24/2023 completed Not Available Critical access hospital 05/21/2023 05:31:34 COVID-19, mRNA, LNP-S, PF, daniela-sucrose, 30 mcg/0.3 mL 02/24/2023 completed Not Available Critical access hospital 05/21/2023 05:31:35 Past Encounters Encounter ID Performer Location Encounter Start Date Encounter Closed Date Diagnosis/Indication Diagnosis SNOMED-CT Code Diagnosis ICD10 Code [id number] CHRIS STANLEY [address] [address] 03/31/2023 13:52:55 03/31/2023 14:48:07 Hyperglycemia due to type 2 diabetes mellitus 6108378845 16303 E11.65 Senile osteoporosis 1804 0001 M81.0 History of heart failure 949081977 Z86.79 History of hematuria 161 563085 Z87.448 Hearing loss 29931851 H9 1.91 Cough 39938304 R05.9 [id number] CHRIS STANLEY [address] [address] 05/13/2023 11:24:56 05/13/2023 12:21:08 Bipolar disorder 51526009 F31.9 Stricture of esophagus 15420719 K22.2 [id number] CHRIS STANLEY [address] [address] 05/21/2023 11:10:39 05/21/2023 14:11:27 Skin lesion 37502537 L98.9 Candidiasis of skin 4988 3006 B37.2 Hypoxia 161378336 R09.02 Muscle weakness 28597049 M62.81 History of cardiomyopathy 7814002302 99081 Z86.79 Stricture of esophagus 26661349 K22.2 [id number] CHRIS STANLEY [address] [address] 05/25/2023 09:23:39 05/25/2023 10:42:06 Candidiasis of skin 86827797 B37.2 Farrell's esophagus 3029 90667 K22.70 [id number] Prachi Blancas RN [address] [address] 06/25/2023 09:34:23 06/25/2023 10:46:13 Aspiration pneumonia 170618143 J69.0 Upper resp iratory infection 37818844 J06.9 [id number] CHRIS STANLEY [address] [address] 06/30/2023 09:21:07 06/30/2023 10:45:05 Hip pain 76417311 M25.559 Aspiration pneumonia 422 933306 J69.0 Candidiasis of skin 4988 3006 B37.2 [id number] CHRIS STANLEY [address] [address] 07/16/2023 08:26:14 07/16/2023 10:18:19 Pressure injury of buttock 527237465 L89.309 Candidiasis of vagina 72 672537 B37.31 [id number] CHRIS STANLEY [address] [address] 07/30/2023 10:18:16 07/30/2023 11:16:51 Polyneuropathy 39337906 G62.9 Hyperglyce contreras due to type 2 diabetes mellitus 7507297256 43107 E11.65 [id number] CHRIS STANLEY [address] [address] 09/01/2023 10:33:38 09/01/2023 11:21:31 Stricture of esophagus 21089543 K22.2 History of cardiomyopathy 1572248440 10764 Z86.79 Polyneuropathy 81439255 G62.9 [id number] MAIDA TOSCANO [facility] [address] [place] [address] 12/03/2023 10:35:02 12/03/2023 11:43:48 Hyperglycemia due to type 2 diabetes mellitus 6308579975 43560 E11.65 Pruritus of vagina 21641 003 L29.3 Polyneuropathy 73621199 G62.9 Goals Section Goal Description Status Start Date LastModified by Organization Details LastModified Time Pt's Polyneuropathy will show improvement. None Recorded Goal not achieved AGGIE PUGA Information not available 11/18/2023 15:22:57 Pt's quality of life will improve. None Recorded Goal not achieved AGGIE PUGA Information not available 11/18/2023 15:27:32 Health Concerns Section Related Observation LastModified by Organization Detai ls LastModified Time None Recorded Concern Status LastModified by Organization Details LastModified Time None Recorded Advance Directives Directive None Recorded Payers Encounter Date Sequence Insurance Name Policy Number Policy Camargo Covered Member ID Camargo Member ID Guarantor Name 06/30/2023 1 [facility] (MEDICAID) Jennifer Irving [id number] Jennifer Irving 07/16/2023 1 [facility] (MEDICAID) Jennifer Irving [id number] Jennifer Irving 07/30/2023 1 [facility] (MEDICAID) Jennifer Irving [id number] Jennifer Irving 09/01/2023 1 [facility] (MEDICAID) Jennifer Irving [id number] Jennifer Irving 12/03/2023 1 [facility] (MEDICAID) Jennifer Irving [id number] Jennifer Irving Notes Date Note Type Note Provider Name and Address Organization Details Recorded Time 06/30/2023 text/html HPI Notes: Jamaal oh is here to follow-up regarding recent respiratory illness. She reports that she is feeling better and stronger. She is using her nebulizer less. She has been wearing her oxygen some during the day. She normally only wears at night. [address], [place], [address], [facility]. 07/01/2023 07:32:33 07/16/2023 text/html HPI Notes: Alber mejia hospitalized with pneumonia. She has no respiratory concerns today. She is most concerned with vaginal itching. She denies dysuria or vaginal discharge. She believes she has a yeast infection. She is also concerned that she has skin breakdown that occured while in the hospital on her buttocks. [address], [place], [address], [facility]. 07/16/2023 15:31:21 07/30/2023 text/html HPI Notes: Sherry marc would like to discuss transitioning off of gabapentin and onto Cymbalta. She finds gabapentin to be minimally effective for lower extremity neuropathy and finds it to be sedating. She is hoping that the Cymbalta would help with neuropathy and also help with her mood. [address], [place], [address], [facility]. 07/30/2023 12:20:23 09/01/2023 text/html HPI Notes: Has [...] for stricture of esophagus. [address], [place], [address], [facility]. 09/01/2023 11:42:46 12/03/2023 text/html HPI Notes: Jamaal [...] month). CHRIS STANLEY, MAIDA [address], [place], [address], [facility]. 12/04/2023 09:49:38 OBGyn Episode No OBEpisode recorded.
--- OUTSIDE RECORDS SUMMARY | 2024-02-29 21:25 | XMS_ITS | Encounter Summary ---
Author Organization [facility] Address [facility] [place] [address] Care Team Providers Care Storage Solutions Architect Name Role Phone Ana Gillespie VAUGHN Primary Care Provider [phone] Encounter Details Date Type Department Care Team (Late st Contact Info) Description 11/05/2023 8:30 AM EDT - 11/05/2023 9:00 AM EDT [place] [address] David Dejesus MD [facility] [place] [address] EGD-DILATATION BY SOUND OR BOUGIE, SINGLE OR [...] better as expected. Wednesday-Wednesday Same Day Endo [phone] Otherwise contact [phone] and ask to speak to the pump room operator electronic controls repairer supervisor Follow-up care is a fam part of [...] 180 tablet 3 10/20/2021 Blood Sugar Diagnostic (Kawaii MuseumTOUCH ULTRA TEST) StripIndications:Type 2 diabetes mellitus, uncontrolled [...] meter kit. 1 each 0 12/14/2014 Insulin [place], Disposable, (BD INSULIN PEN NEEDLE UF MINI) 31 x 3/16 NeedleIndications:Josefina betallison mellitus type 2, uncontrolled 1 Device by [facility].(Non-Drug; Combo Route) route [...] escorted out of department via wheelchair with /long haul truck driver. documented in this encounter H&P Notes [...] glucose meter kit. 1 each 0 Insulin [place], Disposable, (BD INSULIN PEN NEEDLE UF MINI) 31 x 3/16 Needle 1 Device by [facility].(Non-Drug; Combo Route) route [...] PM EDT Office Visit Cardiology at [address] [address] Milagros Hernandez MD [facility] [place] [address] Scheduled Procedures Name Priority Associated Diagnoses Date/Ti me EGD, UPPER GI ENDOSCOPY (WRV U 2.09) Peptic stricture of esophagus documented as of this encounter Procedures Procedure Name Priority Date/Time Associated Diagnosis Comments Up Gi Endoscopy, Dilatn W Guide (89568) 11/05/2023 8:34 AM EDT Peptic stricture of esophagus Dilate Esophagus (18727) 11/05/2023 8:34 AM EDT Peptic stricture of esophagus POCT GLUCOSE Routine 11/05/2023 7:50 AM EDT documented in this encounter Results * POCT Glucose (11/05/2023 7:50 AM EDT) Glucose, POC 86 65 - 199 mg/dL [facility] Comment: Supplemental ranges: <140 mg/dL before meals <180 mg/dL all other times of the day Blood 11/05/2023 7:50 AM EDT 11/05/2023 7:50 AM EDT David Dejesus MD POINT OF CARE TEST ORDERABLES [facility] [place] [place] [address] documented in this encounter Visit Diagnoses Diagnosis [...] CRNA) documented in this encounter Care Teams Storage Solutions Architect Relationship Specialty Start Date End Date Ana Gillespie APRN [address] [place] [address] PCP - General Family Medicine 02/03/19 documented as of this encounter
--- OUTSIDE RECORDS SUMMARY | 2024-02-29 21:25 | XMS_ITS | Encounter Summary ---
Author Organization [facility] [place] [address] Care Team Providers Care Investor Relations Specialist Name Role Phone Ana Gillespie APRN Primary Care Provider [phone] Encounter Details Date Type Department Care Team (Late st Contact Info) Description 10/12/2023 Telephone [place] [phone] Niru Mary Social History Tobacco Use Types [...] - 10/12/2023 2:45 PM EDT Copied from [facility] #[id number]. Topic: Specialty Dept CRMs - Generic Call >> Aug 20, 2023 8:14 AM Crispin Reeves wrote: Specialist: Bang Relationship (if other than patient-full name): Spouse, Campos Irving Reason for Call: Campos canceled 08/20/23 PFT and FUV, due to illness. Campos declined having this casualty underwriter reschedule. Please call Campos to coordinate rescheduling [id number] appointments with Campos. documented in this encounter Plan of Treatment Upcoming Encounters Date Type Department Care Team (Late st Contact Info) Description 03/10/2024 4:00 PM EDT Office Visit Cardiology at [address] [address] Milagros Hernandez MD [facility] [place] [address] Scheduled Procedures Name Priority Associated Diagnoses Date/Ti me EGD, UPPER GI ENDOSCOPY (WRV U 2.09) Peptic stricture of esophagus documented as of this encounter Visit Diagnoses Not on filedocumented in this encounter Care Teams Investor Relations Specialist Relationship Specialty Start Date End Date Ana Gillespie APRN [address] [place] [address] PCP - General Family Medicine 02/03/19 documented as of this encounter
--- OUTSIDE RECORDS SUMMARY | 2024-02-29 21:25 | XMS_ITS | Encounter Summary ---
Author Organization [facility] Address [facility] [place] [address] Care Team Providers Care Supervisor Fabrication And Assembly Name Role Phone Ana Gillespie VAUGHN Primary Care Provider Encounter Details Date Type Department Care Team (Latest Contact Info) Description 12/07/2023 12:24 PM EDT - 12/07/2023 11:59 PM EDT Hospital [place] [phone] Hypoxemia Discharge Disposition: Home Social History Tobacco [...] meter kit. 1 each 0 12/14/2014 Insulin [place], Disposable, (BD INSULIN PEN NEEDLE UF MINI) 31 x 3/16 NeedleIndications:Josefina betes mellitus type 2, uncontrolled 1 Device by Misc.(Non-Drug; Combo Route) route 3 times daily as needed. 100 each 11 12/13/2014 documented as of this encounter Plan of Treatment Upcoming Encounters Date Type Department Care Team (Late st Contact Info) Description 03/10/2024 4:00 PM EDT Office Visit Cardiology at [address] [address] Milagros Hernandez MD [facility] [place] [address] Scheduled Procedures Name Priority Associated Diagnoses Date/Ti [...] PFT FEV1/FVC Pre-BD Z-Score -0.14 COMPAS PFT BTH32-58 Actual Pre-BD 1.66 % COMPAS PFT RTT11-78 Predicted 1.94 % COMPAS PFT GYG97-74 Pre-BD % of Predicted 86 % COMPAS PFT FOC97-43 Pre-BD Z-Score -0.41 COMPAS PFT DLCO Hb [...] significant desaturation with ambulation. Procedure Note Liana aKm MD - 12/07/2023 FINDINGS: FEV1, FVC, and [...] Hypoxemia documented in this encounter Care Teams Supervisor Fabrication And Assembly Relationship Specialty Start Date End Date Ana Gillespie APRN [address] [place] [address] PCP - General Family Medicine 02/03/19 documented as of this encounter
--- OUTSIDE RECORDS SUMMARY | 2024-02-29 21:25 | XMS_ITS | Encounter Summary ---
Author Organization [facility] Address [facility] [place] [address] Care Team Providers Care Real Estate Valuer Name Role Phone Ana Gillespie VAUGHN Primary Care Provider [phone] Reason for Visit * Reason Comments Establish Care Dysphagia Encounter Details Date Type Department Care Team (Late st Contact Info) Description 12/07/2023 2:00 PM EDT Office Visit Thoracic [place] [address] Richard Diallo MD [facility] [place] [address] History of chronic pancreatitis; Esophageal stricture Social [...] Outpatient Consultation Note MD Alla Kirk PA-C [place] [address] FAX: Date of Consultation: 12/07/2023 This consultation has been requested by PCP: Ana Gillespie APRN Referring Physician: Ana Gillespie APRN [address] [place] [id number] Purpose for Consultation: esophageal stricture HPI: Jenniefranne Irving is a 63 y.o. female with [...] is a former smoker with an approximate 27-djiv-datt history, quit 4 years ago. She adamantly denies alcohol use or history of alcohol use and denies recreational drug use despite the documentation throughout her chart. 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 She states she is active during the [...] IR G-Tube Check/Change 11/27/2022 Hang Cooper, ROSLYN [facility] IR G-TUBE CHECK/CHANGE 03/10/2023 IR G-Tube Check/Change 03/10/2023 Richard Chambers DO [facility] IR G-TUBE CHECK/CHANGE 04/06/2023 IR G-Tube Check/Change 04/06/2023 Gavin Carrillo MD [facility] IR G-TUBE CHECK/CHANGE 05/09/2023 IR G-Tube Check/Change [facility] IR G-TUBE CHECK/CHANGE 07/09/2023 IR G-Tube Check/Change [facility] IR G-TUBE CHECK/CHANGE 09/17/2023 IR G-Tube Check/Change 09/17/2023 Hang Cooper PA [facility] IR G-TUBE CHECK/CHANGE 10/14/2023 IR G-Tube Check/Change 10/14/2023 Moustapha Hart MD [facility] IR G-TUBE PLACEMENT [...] Dejesus MD at [facility] ENDOSCOPY PRO DILATE ESOPHAGUS N/A 11/05/2023 EGD-DILATATION BY SOUND OR BOUGIE, SINGLE OR MULTIPLE PASSES (WRVU 1.28) performed by David Dejesus MD at [facility] [...] MM (WRVU 2.67) performed by David Dejesus [facility] ENDOSCOPY PRO UP GI ENDOSCOPY, BALL DIL, 30MM N/A 02/26/2023 EGD,WITH DILATION ESOPHAGUS WITH BALLOON,< 30 MM (WRVU 2.67) performed by David Dejesus [facility] ENDOSCOPY PRO UP GI ENDOSCOPY, BALL DIL, 30MM N/A 03/16/2023 EGD,WITH DILATION ESOPHAGUS WITH BALLOON,< 30 MM (WRVU 2.67) performed by David Dejesus [facility] ENDOSCOPY PRO UP GI ENDOSCOPY, BALL DIL, 30MM N/A 03/30/2023 EGD,WITH DILATION ESOPHAGUS WITH BALLOON,< 30 MM (WRVU 2.67) performed by David Dejesus [facility] ENDOSCOPY PRO UP GI ENDOSCOPY, BALL DIL, 30MM N/A 04/30/2023 EGD,WITH DILATION ESOPHAGUS WITH BALLOON,< 30 MM (WRVU 2.67) performed by David Dejesus [facility] ENDOSCOPY PRO UP GI ENDOSCOPY, BALL DIL, 30MM N/A 06/01/2023 EGD,WITH DILATION ESOPHAGUS WITH BALLOON,< 30 MM (WRVU 2.67) performed by David Dejesus [facility] ENDOSCOPY PRO UP GI ENDOSCOPY, BALL DIL, 30MM N/A 08/02/2023 EGD,WITH DILATION ESOPHAGUS WITH BALLOON,< 30 MM (WRVU 2.67) performed by David Dejesus [facility] ENDOSCOPY PRO UP GI ENDOSCOPY, DILATN W GUIDE N/A 10/07/2023 EGD-ESOPHOGEAL DILATATION OVER GUIDE WIRE (WRVU 2.91) performed by David Dejesus MD at [facility] ENDOSCOPY PRO UP GI ENDOSCOPY, DILATN W GUIDE N/A 11/05/2023 EGD-ESOPHOGEAL DILATATION OVER GUIDE WIRE (WRVU 2.91) performed by David Dejesus MD at [facility] ENDOSCOPY PRO UPPER GI ENDOSCOPY, BIOPSY N/A 04/03/2014 UPPER GASTROINTESTINAL ENDOSCOPY,WITH BIOPSY SINGLE OR MULTIPLE performed by David Dejesus [facility] ENDOSCOPY PRO UPPER GI ENDOSCOPY, BIOPSY [...] Russ MD at [facility] Medications: Outpatient Medications Marked as [...] glucose meter kit. 1 each 0 Insulin [place], Disposable, (BD INSULIN PEN NEEDLE UF MINI) 31 x 3/16 Needle 1 Device by [employer] [facility] [employer].(Non-Drug; Combo Route) route 3 times daily as [...] questions Alla Bowden PA-C 12/07/2023 Thoracic Surgery [facility] I have seen the patient and reviewed [...] PM EDT Office Visit Cardiology at [address] [address] Milagros Hernandez MD [facility] [place] [address] Scheduled Orders Name Type Priority Associated Diagnoses Orde r Schedule Comprehensive metabolic panel (non-fasting) Lab Routine History of chronic pancreatitis Expected: 12/07/2023, Expires: 03/06/2024 Lipase Lab Routine History of chronic pancreatitis Expected: 12/07/2023, Expires: 2024 Amylase Lab Routine History of chronic pancreatitis Expected: 12/07/2023, Expires: 2024 Scheduled Procedures Name Priority Associated Diagnoses Date/Ti ct EGD, UPPER GI ENDOSCOPY (WRV U 2.09) Peptic stricture of esophagus documented as of this encounter Visit Diagnoses Diagnosis History of chronic pancreatitis Personal history of other diseases of digestive system Esophageal stricture Stricture and stenosis of esophagus documented in this encounter Care Teams Real Estate Valuer Relationship Specialty Start Date End Date Ana Gillespie APRN [address] [place] [address] PCP - General Family Medicine 02/03/19 documented as of this encounter
--- OUTSIDE RECORDS SUMMARY | 2024-02-29 21:25 | XMS_ITS | Encounter Summary ---
Author Organization Counts Include [address] [address] Care Team Providers Care Career Services Manager Name Role Phone Ana Gillespie APRN Primary Care Provider [phone] Encounter Details Date Type Department Care Team [...] PM EDT Office Visit Cardiology at [address] [address] Milagros Hernandez MD [facility] [place] [address] Scheduled Procedures Name Priority Associated Diagnoses Date/Ti me EGD, UPPER GI ENDOSCOPY (WRV U 2.09) Peptic stricture of esophagus documented as of this encounter Visit Diagnoses Not on filedocumented in this encounter Care Teams Career Services Manager Relationship Specialty Start Date End Date Ana Gillespie APRN [address] [place] [address] PCP - General Family Medicine 02/03/19 documented as of this encounter
--- OUTSIDE RECORDS SUMMARY | 2024-02-29 21:25 | XMS_ITS | Encounter Summary ---
Author Organization [facility] Address [facility] [place] [address] Care Team Providers Care Unit Assembler Name Role Phone Ana Gillespie APRN Primary Care Provider [phone] Encounter Details Date Type Department Care Team (Late st Contact Info) Description 10/05/2023 Telephone [place] [phone] Niru Mary Social History Tobacco Use Types [...] PM EDT Office Visit Cardiology at [address] [phone] Milagros Hernandez MD [facility] CARDIOLOGY [place] [phone] Scheduled Procedures Name Priority Associated Diagnoses Date/Ti me EGD, UPPER GI ENDOSCOPY (WRV U 2.09) Peptic stricture of esophagus documented as of this encounter Visit Diagnoses Not on filedocumented in this encounter Care Teams Unit Assembler Relationship Specialty Start Date End Date Ana Gillespie APRN [address] [place] [address] PCP - General Family Medicine 02/03/19 documented as of this encounter
--- OUTSIDE RECORDS SUMMARY | 2024-02-29 21:25 | XMS_ITS | Encounter Summary ---
Author Organization [facility] Address [facility] [place] [address] Care Team Providers Care Medical Physics Teacher Name Role Phone Ana Gillespie APRN Primary Care Provider [phone] Encounter Details Date Type Department Care Team (Latest Contact Info) Description 11/17/2023 8:40 AM EDT Office Visit Cardiology at [address] [phone] Milagros Hernandez MD [facility] [place] [address] Stress-induced cardiomyopathy Social History Tobacco Use Types [...] not included. Formerly [facility] [place] [address] CARDIOLOGY OUTPATIENT NOTE PRIMARY CARE PROVIDER: Ana [...] glucose meter kit. 1 each 0 Insulin [place], Disposable, (BD INSULIN PEN NEEDLE UF MINI) 31 x 3/16 Needle 1 Device by [facility]Non-Drug; Combo Route) route 3 times [...] stricture dilations and unfortunately was admitted to [facility] at the end of February shortly after [...] in April, she had another admission to [facility] in June 2023 for COPD which was complicated by a Type II NSTEMI. The systems testing laboratory technician carton filler here was contacted and recommended a TTE, [...] There is no evidence that providers at [facility] reached back out to Cardiology here so [...] Sinus bradycardia, low voltage, otherwise normal TTE ([facility], 11/20/22): TTE (08/19/22): Interpretation Summary -Left ventricular [...] to obtain her echo from June at [facility] which I do not have the results [...] most recent echocardiogram results from June at [facility] - Patient to reach out once surgical [...] next visit. Milagros Hernandez MD Cardiovascular Medicine [facility] 11/17/2023 documented in this encounter Plan of Treatment Upcoming Encounters Date Type Department Care Team (Late st Contact Info) Description 03/10/2024 4:00 PM EDT Office Visit Cardiology at [address] [address] Milagros Hernandez MD [facility] [place] [address] Scheduled Procedures Name Priority Associated Diagnoses Date/Ti me EGD, UPPER GI ENDOSCOPY (WRV U 2.09) Peptic stricture of esophagus documented as of this encounter Visit Diagnoses Diagnosis Stress-induced cardiomyopathy Takotsubo syndrome documented in this encounter Care Teams Medical Physics Teacher Relationship Specialty Start Date End Date Ana Gillespie APRN [address] [place] [address] PCP - General Family Medicine 02/03/19 documented as of this encounter
--- OUTSIDE RECORDS SUMMARY | 2024-02-29 21:25 | XMS_ITS | Encounter Summary ---
Author Organization [facility] Address [facility] [place] [address] Care Team Providers Care Jigger Machine Operator Name Role Phone Ana Gillespie APRN Primary Care Provider [phone] Encounter Details Date Type Department Care Team (Late st Contact Info) Description 02/23/2024 Telephone [place] [phone] [facility] [place] [phone] Social History Tobacco Use Types Packs/Day Years [...] PM EDT Office Visit Cardiology at [address] [address] Milagros Hernandez MD [facility] [place] [address] Scheduled Procedures Name Priority Associated Diagnoses Date/Ti me EGD, UPPER GI ENDOSCOPY (WRV U 2.09) Peptic stricture of esophagus documented as of this encounter Visit Diagnoses Not on filedocumented in this encounter Care Teams Jigger Machine Operator Relationship Specialty Start Date End Date Ana Gillespie APRN [address] [place] [address] PCP - General Family Medicine 02/03/19 documented as of this encounter
--- OUTSIDE RECORDS SUMMARY | 2024-02-29 21:25 | XMS_ITS | Clinical Summary ---
Author Organization [facility] Address [facility] [place] [address] Care Team Providers Care Senior Safety Support Manager Name Role Phone Ana Gillespie VAUGHN Primary Care Provider [phone] Allergies Active Allergy Reactions Criticality Noted Date Comments Meperidine Hcl Nausea And Vomiting Low CIS - violently ill Metformin Other (See Comments) Low 09/23/2021 Severe diarrhea Medications Medication Sig Dispensed Refills Start Date End Date Status Insulin [place], Disposable, (BD INSULIN PEN NEEDLE UF MINI) [...] Care Team Description 02/23/2024 Telephone [place] [phone] Tenisha Fairchild, RD 02/23/2024 Tele[place] [phone] Tenisha Fairchild, RD 02/07/2024 7:43 AM EDT - 02/07/2024 11:59 PM EDT Hospital Encounter Radiology at [place] [phone] Rio Hill MD Problem with gastrostomy tube Discharge Disposition: Home 02/07/2024 Travel 02/05/2024 Orders Only Radiology at [place] [phone] Sonny Pearson, DO Problem with gastrostomy tube 01/19/2024 [place] [address] Chiquita James, RN 12/20/2023 Orders [place] [phone] Deborah Gallo PA Esophageal stricture; Gastroesophageal reflux disease, unspecified whether esophagitis present; Farrell's esophagus without dysplasia 12/13/2023 [place] [address] Kiko Ashley 12/13/2023 [place] [address] [place]adyElsie loganVAUGHN 12/07/2023 2:00 PM EDT Office [place] [address] Geronimo Mojica MD History of chronic pancreatitis; Esophageal stricture 12/07/2023 12:24 PM EDT - 12/07/2023 11:59 PM EDT Hospital [place] [address] Hypoxemia Discharge Disposition: Home 12/07/2023 [...] PM EDT Office Visit Cardiology at [address] [phone] Milagros Hernandez MD [facility] [place] [address] Scheduled Procedures Name Priority Associated Diagnoses Date/Ti [...] history exists Medical Devices Implanted Type Area Ship/Rec/Doc Control Device Identifier Shelf Expiration Date Model / [...] None. Technique: The patient was positioned supine. [employer] Director imaging was performed with mixed air/contrast injection [...] of a EnFit 16 F gastrostomy tube. felt hat flanging operator: Hang Cooper PA-C Attending of record: [...] PFT FEV1/FVC Pre-BD Z-Score -0.14 COMPAS PFT DFW94-71 Actual Pre-BD 1.66 % COMPAS PFT LCX51-41 Predicted 1.94 % COMPAS PFT HLC60-75 Pre-BD % of Predicted 86 % COMPAS PFT [id number] Pre-BD Z-Score -0.41 COMPAS PFT DLCO Hb [...] - 199 mg/dL [facility] Comment:Diabetes: >=200 mg/d L plus symptoms Blood Urea Nitrogen 32(H) 8 - 18 mg/dL [facility] Creatinine 0.62(L) 0.70 - 1.20 mg/dL [facility] Sodium 142 135 - 145 mmol/L [facility] Potassium 4.6 3.5 - 5.0 mmol/L [facility] Comment: Please note: ??Patients with WBC >100,000 may have falsely elevated Potassium levels. ??For accurate Potassium quantification in these patients send serum separator tube (gold top) for subsequent determinations. ??Contact the Clinical Chemistry Laboratory if there are any questions. Chloride 103 98 - 107 mmol/L [facility] Carbon Dioxide 31 22 - 31 mmol/L [facility] Anion Gap 8 5 - 15 mmol/L [facility] Calcium 9.8 8.5 - 10.5 mg/dL [facility] Est Glomerular Filtration Rate 101 >=60 mL/min/1. 73 m?? [facility] Comment: This patient's estimated GFR was [...] MD CHEMISTRY ORDERABLES [facility] [place] [address] * Lipid Panel (Reflex Direct LDL) (08/29/2022 4:48 AM EDT) Cholesterol, Total 110 mg/dL [facility] Comment: Lower Risk: <200 mg/dL Average Risk: 200-239 mg/dL Higher Risk: >ne=750 mg/dL Triglyceride 127 mg/dL [facility] Comment: Average Risk/Lower Risk: <150 mg/dL Borderline High Risk: 150-199 mg/dL High Risk: 200-499 mg/dL Very High Risk: >lv=955 mg/dL HDL Cholesterol 34 mg/dL [facility] Comment: Males: ?? Higher Risk: <40 mg/dL Females: ?? Higher Risk: <50 mg/dL LDL Cholesterol 51 mg/dL [facility] Comment: Lowest Risk: <100 mg/dL Lower Risk: 100-129 mg/dL Borderline High Risk: 130-159 mg/dL High Risk: 160-189 mg/dL Very High Risk: >ky=298 mg/dL Cholesterol/HDL Ratio 3.2 ratio [facility] Lipid Interpretation See Note [facility] Comment: Lipid management should be guided by a patient? s ASCVD risk, goals and preferences. ACC/AHA Guidelines recommend high intensity statin if clinical ASCVD or LDL greater than or equal to 190 mg/dL. http://HEROZ.[place] Approach/ZQQ-PUP-Hsqtfrrus Adults aged 40-75 with LDL 70-189 mg/dL should have their 10 year ASCVD risk estimated with the ACC/AHA ASCVD risk mammal keeper http://tools.acc.org/NYLRA-Hplx-Ednooyoow/ Statin should be discussed if risk greater [...] Hernandez MD CHEMISTRY ORDERABLES Performing Organization Address City/State/[facility] Co de Phone Number [facility] [place] [address] * (ABNORMAL) Hemoglobin A1c (08/15/2022 3:05 AM EDT) Hemoglobin A1c 6.2(H) 4.3 - 5.6 % [facility] Comment: Reference Range: 4.3 - 5.6% [...] Mellitus, Diabetes Care 2013; 36: Suppl. 1, A64-64 Estimated Average Glucose 130 mg/dL [facility] Comment: eAG equivalents for HbA1c percentages: [...] into estimated average glucose values. ??Diabetes Care 2008:31(8):9223-2849. Blood 08/15/2022 3:05 AM EDT 08/15/2022 3:16 AM EDT Narrative Resulting Agency Comment Spec In Lab Carlos Terry MD CHEMISTRY ORDERABLES [facility] [place] [address] * COLONOSCOPY (03/01/2020 7:22 AM EDT) [facility] Signature COLONOSCOPY [facility] Endoscopy Procedure Date: 03/01/2020 7:22 AM ? Patient Name: Jennifer Irving ? Date of : 1960 ? Age: 59 ? Order #: [id number] ? Instrument Name: [id number] ? Procedure: ? Colonoscopy Indications: ? Screening [...] PROVATION 03/01/2020 7:22 AM EDT Ana Gillespie PROJECT ANALYST GENERAL SURGICAL ORD ERABLES Performing Organization Address City/[facility] Co de Phone Number [employer]OVATION * Microalbumin, urine, random (12/13/2014 12:33 PM EDT) Creatinine, Urine 284 mg/dL CE RNER MILLENNIUM Albumin, Urine 258.4 mg/L CERNE R MILLENNIUM Albumin / Creatinin Ratio, Urine 91 mcg/mg Cr CERNER MILLENNIUM Comment: Reference Range* Random collection (mcg/mg creatinine) Normal ?<30 Microalbuminuria ?? 30 - 300 Clinical Albuminuria ?? >300 *[place] [employer]. Diabetic Nephropathy. Diabetes Care 1997;(Suppl 1):S24-S27 Exercise within 24 hour, infection, fever, CHF, marked hyperglycemia, and marked hypertension may elevate urinary albumin excretion over baseline values. Urine specimen (specimen) 12/13/2014 12:33 PM EDT 12/13/2014 12:39 PM EDT Narrative Resulting Agency Comment Spec In Lab Moustapha Agosto MD URINE ORDERABLES Performing Organization Address [facility] de Phone Number [employer] * Mammography Screen Eduard 2D Bilateral (07/02/2014 [...] Documents on File Type Date Recorded Patient Wireless Watcher Expl anation Advance Directives and Dominic sandoval [...] Status decision made by: Patient Care Teams Senior Safety Support Manager Relationship Specialty Start Date End Date Ana Gillespie APRN [address] [place] [address] PCP - General Family Medicine 02/03/19
--- OUTSIDE RECORDS SUMMARY | 2024-02-29 21:25 | XMS_ITS | Encounter Summary ---
Author Organization [facility] Address [facility] [place] [address] Care Team Providers Care Flight Attendant Inflight Services Name Role Phone Ana Gillespie APRN Primary Care Provider [phone] Encounter Details Date Type Department Care Team (Late st Contact Info) Description 11/05/2023 8:36 AM EDT Anesthesia Event [place] [phone] Daryl Carmona MD [facility] [place] [address] Anesthesia Record Procedure Summary Procedure Name Responsible [...] by Sergey Jordan RN PIV 11/05/23; 0745; iova-ohp-pkcskb catheter system; 22 gauge, 1 in length; [...] Procedure Summary Date: 11/05/23 Room / Location: [facility] ENDO 2 / [facility] ENDOSCOPY Anesthesia Start: 36 Anesthesia Stop: 909 Procedures: EGD-DILATATION BY SOUND OR BOUGIE, SINGLE OR MULTIPLE PASSES (WRVU 1.28) (Trunk) EGD-ESOPHOGEAL DILATATION OVER GUIDE WIRE (WRVU 2.91) Diagnosis: Peptic stricture of esophagus (petic stricture - follow-up dilation in 2-3 weeks) Surgeons: David Dejesus MD Responsible Provider: Daryl Carmona MD Anesthesia Type: general ASA Status: 2 All Anesthesia Providers: Anesthesiologist: Daryl Carmona MD SUPERVISOR COMPOUNDING AND FINISHING: Annie Alfonso CRNA Vitals Value Taken Time BP 125/64 11/05/23 0920 Temp Pulse Resp 16 11/05/23 0902 SpO2 97 % 11/05/23 0940 Pain Level 0 11/05/23 0902 Vitals shown include unfiled device data. Patient Location: PACU/[facility] Level of Consciousness: Conscious but [...] GI ENDOSCOPY ([facility], INCU 2.09) Patient Active Problem List Diagnosis Date [...] IR G-Tube Check/Change 11/27/2022 Hang Cooper PA [facility] INTERVENTIONL RAD ??? IR G-TUBE CHECK/CHANGE 03/10/2023 IR G-Tube Check/Change 03/10/2023 Geronimo Chambers, MH INTERVENTIONL RAD ??? IR G-TUBE CHECK/CHANGE 04/06/2023 IR G-Tube Check/Change 04/06/2023 Gavin Carrillo MD [facility] INTERVENTIONL RAD ??? IR G-TUBE CHECK/CHANGE 05/09/2023 IR G-Tube Check/Change [facility] INTERVENTIONL RAD ??? IR G-TUBE CHECK/CHANGE 07/09/2023 IR G-Tube Check/Change [facility] INTERVENTIONL RAD ??? IR G-TUBE CHECK/CHANGE 09/17/2023 IR G-Tube Check/Change 09/17/2023 Hang Cooper, ROSLYN [facility] INTERVENTIONL RAD ??? IR G-TUBE CHECK/CHANGE 10/14/2023 IR G-Tube Check/Change 10/14/2023 Moustapha Hart MD [facility] INTERVENTIONL RAD ??? IR G-TUBE PLACEMENT 09/11/2022 IR G-Tube Placement 09/11/2022 Moustapha Hart MD [facility] INTERVENTIONL RAD ??? IR SUTURE RELEASE 09/25/2022 IR Suture Release 09/25/2022 Yoselin Ghosh PA [facility] INTERVENTIONL RAD ??? PERCUTANEOUS GASTROSTOMY N/A 09/11/2022 PERCUTANEOUS GASTROSTOMY performed by Aiden Flroes MD at [facility] CATY ??? PRO COLONOSCOPY, BIOPSY N/A 03/20/2016 COLONOSCOPY FLEXIBLE, WITH BX performed by David Dejesus MD at [facility] ENDOSCOPY ??? PRO COLONOSCOPY, DIAGNOSTIC N/A 03/01/2020 COLONOSCOPY, DIAGNOSTIC performed by David Dejesus MD at [facility] ENDOSCOPY ??? PRO ENDOSCOPIC US EXAM, ESOPH N/A 03/31/2022 UPPER EUS- ENDOSCOPIC ULTRASOUND performed by David Dejesus MD at [facility] ENDOSCOPY ??? PRO UP GI ENDOSCOPY, [...] 2.91) performed by David Dejesus MD at [facility] ENDOSCOPY ??? PRO UPPER GI ENDOSCOPY, BIOPSY N/A 04/03/2014 UPPER GASTROINTESTINAL ENDOSCOPY,WITH BIOPSY SINGLE OR MULTIPLE performed by David Dejesus [facility] ENDOSCOPY ??? PRO UPPER GI ENDOSCOPY, BIOPSY N/A 03/20/2016 EGD WITH BIOPSY performed by David Dejesus MD at [facility] ENDOSCOPY ??? PRO UPPER GI ENDOSCOPY, BIOPSY N/A 11/22/2018 EGD WITH BIOPSY (WRVU 2.49) performed by David Dejesus MD at [facility] ENDOSCOPY ??? PRO UPPER GI ENDOSCOPY, BIOPSY N/A 03/01/2020 UPPER GASTROINTESTINAL ENDOSCOPY,WITH BIOPSY SINGLE OR MULTIPLE (WRVU 2.49) performed by David Dejesus MD at [facility] ENDOSCOPY ??? PRO UPPER GI ENDOSCOPY, BIOPSY N/A 09/23/2021 EGD WITH BIOPSY (WRVU 2.49) performed by David Dejesus MD at [facility] ENDOSCOPY ??? PRO UPPER GI ENDOSCOPY, BIOPSY N/A 03/31/2022 EGD WITH BIOPSY (WRVU 2.49) performed by David Dejesus MD at [facility] ENDOSCOPY ??? PRO UPPER GI ENDOSCOPY, BIOPSY N/A 07/03/2022 EGD WITH BIOPSY (WRVU 2.49) performed by David Dejesus MD at [facility] ENDOSCOPY ??? PRO UPPER GI ENDOSCOPY, DIAGNOSTIC N/A 04/03/2014 EGD, UPPER GI ENDOSCOPY performed by David Dejesus MD at [facility] ENDOSCOPY ??? PRO UPPER GI ENDOSCOPY, DIAGNOSTIC N/A 03/01/2020 EGD, UPPER GI ENDOSCOPY performed by David Dejesus MD at [facility] ENDOSCOPY ??? PRO UPPER GI ENDOSCOPY, DIAGNOSTIC N/A 09/09/2022 EGD, UPPER GI ENDOSCOPY (WRVU 2.09) performed by Ayo Russ MD at [facility] MAIN OR Social History Tobacco Use [...] there has been no significant change. Planning [facility] Region - Other Informed Consent: Anesthetic plan and risks discussed with patient. Use of blood products discussed with patient who consented to blood products. Plan discussed with SUPERVISOR COMPOUNDING AND FINISHING. Anesthesia Screening documented in this encounter Plan of Treatment Upcoming Encounters Date Type Department Care Team (Late st Contact Info) Description 03/10/2024 4:00 PM EDT Office Visit Cardiology at [address] [address] Milagros Hernandez MD [facility] [place] [address] Scheduled Procedures Name Priority Associated Diagnoses Date/Ti [...] mg documented in this encounter Care Teams Flight Attendant Inflight Services Relationship Specialty Start Date End Date Ana Gillespie APRN [address] [place] [address] PCP - General Family Medicine 02/03/19 documented as of this encounter
--- OUTSIDE RECORDS SUMMARY | 2024-02-29 21:25 | XMS_ITS | Encounter Summary ---
Author Organization [facility] [place] [address] Care Team Providers Care Harvest Supervisor Name Role Phone Ana Gillespie APRN Primary Care Provider Encounter Details Date Type Department Care Team (Late Contact Info) Description 11/05/2023 Orders [place] [phone] David Dejesus MD [facility] [place] [address] Peptic stricture of esophagus Social History Tobacco [...] PM EDT Office Visit Cardiology at [address] [phone] Milagros Hernandez MD [facility] [place] [address] Scheduled Orders Name Type Priority Associated Diagnoses [...] esophagus documented in this encounter Care Teams Harvest Supervisor Relationship Specialty Start Date End Date Ana Gillespie APRN [address] [place] [address] PCP - General Family Medicine 02/03/19 documented as of this encounter
--- OUTSIDE RECORDS SUMMARY | 2024-02-29 21:25 | XMS_ITS | Encounter Summary ---
Author Organization [facility] Address [facility] [place] [address] Care Team Providers Care Informatica Mdm Developer Name Role Phone Ana Gillespie APRN Primary Care Provider [phone] Encounter Details Date Type Department Care Team (Late st Contact Info) Description 10/07/2023 11:15 AM EDT - 10/07/2023 12:00 PM EDT Surgery [place] [address] David Dejesus MD [facility] [place] [address] EGD-ESOPHOGEAL DILATATION OVER GUIDE WIRE (WRVU 2.91) [...] the day after the procedure, use an kxha-xar-rajeitb spray to numb your throat. Sucking on [...] occurs, please contact your Doctor. Please call [phone] before 8pm Mon-Fri with problems, questions or concerns. If you call after 8pm or on weekends, call the Hospital at [phone] and ask to speak to the Semiconductor Processor staff command and control officer and the packaging machine operator will contact that person for [...] Where can you learn more? [facility] View your After Visit Summary and more online at [email or web address] If you would like to provide feedback about your hospital experience, please call the Office of Patient and Family Relations at . If you have received this After Visit Summary in error, please immediately return it in person to the department, or notify the [facility] Privacy Office by calling toll free at between the hours of 8AM and 5PM to arrange for our retrieval of the documents at no cost to you. Content Version: 12.2 ?? 5195-7813 [employer]. Care instructions adapted under license by [facility]. If you have questions about a medical condition or this instruction, always ask your healthcare professional. [employer] disclaims any warranty or liability for your [...] the day after the procedure, use an xlly-utc-pqudrzg spray to numb your throat. Sucking on [...] occurs, please contact your Doctor. Please call [phone] before 8pm Mon-Fri with problems, questions or concerns. If you call after 8pm or on weekends, call the Hospital at [phone] and ask to speak to the Semiconductor Processor staff command and control officer and the packaging machine operator will contact that person for [...] Where can you learn more? [facility] View your After Visit Summary and more online at [email or web address] If you would like to provide feedback about your hospital experience, please call the Office of Patient and Family Relations at . If you have received this After Visit Summary in error, please immediately return it in person to the department, or notify the [facility] Privacy Office by calling toll free at between the hours of 8AM and 5PM to arrange for our retrieval of the documents at no cost to you. Content Version: 12.2 ?? 7549-5768 [employer]. Care instructions adapted under license by [facility]. If you have questions about a medical condition or this instruction, always ask your healthcare professional. [employer] disclaims any warranty or liability for your [...] meter kit. 1 each 0 12/14/2014 Insulin [place], Disposable, (BD INSULIN PEN NEEDLE UF [...] glucose meter kit. 1 each 0 Insulin [place], Disposable, (BD INSULIN PEN NEEDLE UF [...] PM EDT Office Visit Cardiology at [address] [address] Milagros Hernandez MD [facility] [place] [address] Scheduled Procedures Name Priority Associated Diagnoses Date/Ti me EGD, UPPER GI ENDOSCOPY (WRV U 2.09) Peptic stricture of esophagus documented as of this encounter Procedures Procedure Name Priority Date/Time Associated Diagnosis Comments Up Gi Endoscopy, Jes Cervantes Guide ([id number]) 10/07/2023 10:44 AM EDT Peptic stricture of esophagus UPPER GI ENDOSCOPY Routine 10/07/2023 10 :34 AM EDT documented in this encounter Results * UPPER GI ENDOSCOPY (10/07/2023 10:34 AM EDT) UPPER GI ENDOSCOPY [facility] Endoscopy Procedure Date: 10/07/2023 10:34 AM ? Patient Name: Jennifer Irving ? Date of : 1960 ? Age: 63 ? Order #: [id number] ? Instrument Name: [id number] ? Procedure: ? Upper GI endoscopy Indications: [...] RN) documented in this encounter Care Teams Informatica Mdm Developer Relationship Specialty Start Date End Date Ana Gillespie APRN [address] [place] [address] PCP - General Family Medicine 02/03/19 documented as of this encounter
--- OUTSIDE RECORDS SUMMARY | 2024-02-29 21:25 | XMS_ITS | Encounter Summary ---
Author Organization [facility] [place] [address] Care Team Providers Care Electrical Subcontractor Name Role Phone Ana Gillespie VAUGHN Primary Care Provider [phone] Reason for Visit * Reason Comments Medication Refill Encounter Details Date Type Department Care Team (Late st Contact Info) Description 12/13/2023 [place] [phone] Elsie Erickson ASSEMBLER [facility] [place] [address] Social History Tobacco Use Types Packs/Day Years [...] call and schedule as pt doesn't have [facility] available. documented in this encounter Plan of Treatment Upcoming Encounters Date Type Department Care Team (Late st Contact Info) Description 03/10/2024 4:00 PM EDT Office Visit Cardiology at [address] [address] Milagros Hernandez MD [facility] [place] [address] Scheduled Procedures Name Priority Associated Diagnoses Date/Ti me EGD, UPPER GI ENDOSCOPY (WRV U 2.09) Peptic stricture of esophagus documented as of this encounter Visit Diagnoses Not on filedocumented in this encounter Care Teams Electrical Subcontractor Relationship Specialty Start Date End Date Ana Gillespie APRN [address] [place] [address] PCP - General Family Medicine 02/03/19 documented as of this encounter
--- OUTSIDE RECORDS SUMMARY | 2024-02-29 21:25 | XMS_ITS | Encounter Summary ---
Author Organization [facility] Address [facility] [address] Care Team Providers Care Chain Forming Machine Operator Name Role Phone Ana Gillespie VAUGHN Primary Care Provider [phone] Reason for Referral * Consultation (Routine) - Closed Specialty Diagnoses / Procedures Referred By Esperanza rodríguez Referred To Contact Thoracic Surgery Diagnoses Peptic stricture of esophagus Peptic stricture of esophagus David Dejesus MD [facility] [place] [address] Geronimo Mojica MD [facility] [place] [address] Referral ID Status Reason Start Date Expiration Date V isits Requested Visits Authorized [id number] Closed Consult, Test & Treat 11/05/2023 11/04/2024 1 1 Encounter Details Date Type Department Care Team (Late st Contact Info) Description 11/05/2023 Orders Only Gastroenterology at [place] [phone] David Dejesus MD [facility] [place] [address] Peptic stricture of esophagus Social History Tobacco [...] PM EDT Office Visit Cardiology at [address] [address] Milagros Hernandez MD [facility] [place] [address] Scheduled Procedures Name Priority Associated Diagnoses Date/Ti [...] esophagus documented in this encounter Care Teams Chain Forming Machine Operator Relationship Specialty Start Date End Date Ana Gillespie APRN [address] [place] [address] PCP - General Family Medicine 02/03/19 documented as of this encounter
--- OUTSIDE RECORDS SUMMARY | 2024-02-29 21:25 | XMS_ITS | Encounter Summary ---
Author Organization [facility] Address [facility] [place] [address] Care Team Providers Care Edger Tailer Name Role Phone Ana Gillespie APRN Primary Care Provider [phone] Encounter Details Date Type Department Care Team (Late st Contact Info) Description 10/07/2023 Orders [place] [phone] David Dejesus MD [facility] [place] [address] Social History Tobacco Use Types Packs/Day Years [...] PM EDT Office Visit Cardiology at [address] [phone] Milagros Hernandez MD [facility] [place] [address] Scheduled Procedures Name Priority Associated Diagnoses Date/Ti me EGD, UPPER GI ENDOSCOPY (WRV U 2.09) Peptic stricture of esophagus documented as of this encounter Visit Diagnoses Not on filedocumented in this encounter Care Teams Edger Tailer Relationship Specialty Start Date End Date Ana Gillespie APRN [address] [place] [address] PCP - General Family Medicine 02/03/19 documented as of this encounter
--- OUTSIDE RECORDS SUMMARY | 2024-02-29 21:25 | XMS_ITS | Encounter Summary ---
Author Organization [facility] [place] [address] Care Team Providers Care Brand Ambassadors Promotional Sales Name Role Phone Ana Gillespie APRN Primary Care Provider [phone] Encounter Details Date Type Department Care Team [...] PM EDT Office Visit Cardiology at [address] [address] Milagros Hernandez MD [facility] [place] [address] Scheduled Procedures Name Priority Associated Diagnoses Date/Ti me EGD, UPPER GI ENDOSCOPY (WRV U 2.09) Peptic stricture of esophagus documented as of this encounter Visit Diagnoses Not on filedocumented in this encounter Care Teams Brand Ambassadors Promotional Sales Relationship Specialty Start Date End Date Ana Gillespie APRN [address] [place] [address] PCP - General Family Medicine 02/03/19 documented as of this encounter
--- OUTSIDE RECORDS SUMMARY | 2024-02-29 21:25 | XMS_ITS | Encounter Summary ---
Author Organization [facility] Address [facility] [place] [address] Care Team Providers Care Fabrication Mig Welder Name Role Phone Ana Gillespie VAUGHN Primary Care Provider [phone] Reason for Referral * Consultation (Routine) - Authorized Specialty Diagnoses / Procedures Referred By Esperanza t Referred To Contact Cardiology Diagnoses Esophageal stricture Gastroesophageal reflux disease, unspecified whether esophagitis present Farrell's esophagus without dysplasia Patient of Dr. Milagros Hernandez with possible complex surgery pending, eval for risk stratification Geronimo Mojica MD [facility] [place] [address] Milagros Hernandez MD [facility] [place] [address] Referral ID Status Reason Start Date Expiration Date Visits Requested Visits Authorized [id number] Authorized Consult Only 12/20/2023 12/19/2024 1 1 Encounter Details Date Type Department Care Team (Late st Contact Info) Description 12/20/2023 Orders [place] [address] Deborah Gallo PA [facility] [place] [address] Esophageal stricture; Gastroesophageal reflux disease, unspecified whether [...] PM EDT Office Visit Cardiology at [address] [address] Milagros Hernandez MD [facility] [place] [address] Scheduled Procedures Name Priority Associated Diagnoses Date/Ti [...] esophagus documented in this encounter Care Teams Fabrication Mig Welder Relationship Specialty Start Date End Date Ana Gillespie APRN [address] [place] [address] PCP - General Family Medicine 02/03/19 documented as of this encounter
--- OUTSIDE RECORDS SUMMARY | 2024-02-29 21:25 | XMS_ITS | Encounter Summary ---
Author Organization [facility] Address [facility] [place] [address] Care Team Providers Care Military Analyst Name Role Phone Ana Gillespie VAUGHN Primary Care Provider [phone] Encounter Details Date Type Department Care Team (Latest Contact Info) Description 10/07/2023 9:20 AM EDT - 10/07/2023 12:03 PM EDT Hospital Encounter [place] [address] David Dejesus MD [facility] DR [place]STR[place] [address] Discharge Disposition: Home Social History Tobacco Use [...] the day after the procedure, use an bcvm-oad-iovetxg spray to numb your throat. Sucking on [...] occurs, please contact your Doctor. Please call [phone] before 8pm Mon-Fri with problems, questions or concerns. If you call after 8pm or on weekends, call the Hospital at [phone] and ask to speak to the Tumbling Barrel Painter watcher automat long goods and the radio board operator announcer will contact that person for you. When should you call for help? Call [phone] anytime you think you may need emergency [...] any problems. Where can you learn more? [facility] View your After Visit Summary and more online at [email or web address] If you would like to provide feedback about your hospital experience, please call the Office of Patient and Family Relations at . If you have received this After Visit Summary in error, please immediately return it in person to the department, or notify the [facility] Privacy Office by calling toll free at between the hours of 8AM and 5PM to arrange for our retrieval of the documents at no cost to you. Content Version: 12.2 ?? 7528-5767 [employer]. Care instructions adapted under license by [facility]. If you have questions about a medical condition or this instruction, always ask your healthcare professional. [employer] disclaims any warranty or liability for your [...] the day after the procedure, use an qokv-ltx-vexpesy spray to numb your throat. Sucking on [...] occurs, please contact your Doctor. Please call [phone] before 8pm Mon-Fri with problems, questions or concerns. If you call after 8pm or on weekends, call the Hospital at [phone] and ask to speak to the Tumbling Barrel Painter watcher automat long goods and the radio board operator announcer will contact that person for you. When [...] any problems. Where can you learn more? [facility] View your After Visit Summary and more online at [email or web address] If you would like to provide feedback about your hospital experience, please call the Office of Patient and Family Relations at . If you have received this After Visit Summary in error, please immediately return it in person to the department, or notify the [facility] Privacy Office by calling toll free at between the hours of 8AM and 5PM to arrange for our retrieval of the documents at no cost to you. Content Version: 12.2 ?? 5685-8322 [employer]. Care instructions adapted under license by [facility]. If you have questions about a medical condition or this instruction, always ask your healthcare professional. [employer] disclaims any warranty or liability for your [...] kit. 1 each 0 12/14/2014 Insulin [place], Disposable, (BD INSULIN PEN NEEDLE UF MINI) 31 x 07/23 NeedleIndications:Josefina betes mellitus type 2, uncontrolled 1 Device by [facility]Non-Drug; Combo Route) route 3 times [...] meter kit. 1 each 0 Insulin [place], Disposable, (BD INSULIN PEN NEEDLE UF MINI) 31 x 3/16 Needle 1 Device by [facility]Non-Drug; Combo Route) route 3 times [...] PM EDT Office Visit Cardiology at [address] [address] Milagros Hernandez MD [facility] [place] [address] Scheduled Procedures Name Priority Associated Diagnoses Date/Ti me EGD, UPPER GI ENDOSCOPY (WRV U 2.09) Peptic stricture of esophagus documented as of this encounter Procedures Procedure Name Priority Date/Time Associated Diagnosis Comments Up Gi Endoscopy, Jes W Guide ([id number]) 10/07/2023 10:44 AM EDT Peptic stricture of esophagus UPPER GI ENDOSCOPY Routine 10/07/2023 10 :34 AM EDT documented in this encounter Results * UPPER GI ENDOSCOPY (10/07/2023 10:34 AM EDT) UPPER GI ENDOSCOPY [facility] Endoscopy Procedure Date: 10/07/2023 10:34 AM ? Patient Name: Jennifer Irving ? Date of : 1960 ? Age: 63 ? Order #: [id number] ? Instrument Name: [id number]- [id number] ? Procedure: ? Upper GI endoscopy Indications: [...] RN) documented in this encounter Care Teams Military Analyst Relationship Specialty Start Date End Date Ana Gillespie APRN [address] [place] [address] PCP - General Family Medicine 02/03/19 documented as of this encounter
--- OUTSIDE RECORDS SUMMARY | 2024-02-29 21:25 | XMS_ITS | Continuity of Care Document ---
Author Organization [facility] Address [address] [place] [address] Care Team Providers Care Rum Processing Operator Name Role Phone CHRIS GILLESPIE Primary Care Provider AGGIE PUGA OTHER RICHARD SANTANA OTHER FLAVIO MOSELEY OTHER Assessment No assessment recorded. Plan of Treatment Reminders Order Date Submit Date Provider Last Modified By Organization Details Last Modified Time Details Appointments Office Visit 30 2023 10:30A M CHRIS GILLESPIE, Not available Not available Not available Lab bacterial vaginosis + vaginitis panel, vaginal 2023 024 [facility] (Registration ), [address] [place] [address], [place], [address], 12/07/2023 08:25:07 hemoglobi n A1C, fingersti ck 2023 024 [email or web address] [facility], [address] [place] [address], [address], 12/03/2023 13:04:17 Referral None recorded. Procedures None recorded. Surgeries None recorded. Imaging None recorded. Medication Orders duloxetin e 20 mg capsule,d elayed release 2023 024 [email or web address] [facility], [address] [facility], [place], [address], 12/04/2023 09:48:58 clotrimaz ole 1 % topical cream 2023 024 [facility], [address] [place], [address], 12/04/2023 09:22:02 Likmez 500 mg/5 mL oral suspensio n 2023 024 [facility], [address] [place], [address], 12/04/2023 09:26:17 Patient TargetsNo targets recorded. Patient InstructionsNo instructions recorded. Reason for Referral Senior Materials Planner Referral fo r Hearing loss 2nd time sending. once visit is complete please send us the office notes. thanks Referring Physician: Chris Gillespie [facility], Encounter Date: 03/31/2023 Cushion Filler Referral for H ypoxia Patient requests Dr. Cuenca Referring Physician: Chris Gillespie [facility], Encounter Date: 05/21/2023 Toe Sewer Referral for Hea ring loss to go with ENT referral Referring Physician: Chris Gillespie [facility], Encounter Date: 04/12/2023 Results Created Date Observation Date Name Description Value Unit Range Abnormal Flag Note LastModifiedBy Organization Detail LastModifiedTime 12/03/19 24 12/03/2023 hemog lobin A1C, finge rstic k hemoglobin A1C 5.6 % <5.7 Not Available [address], [address], 12/03/2023 11:17:58 01/24/20 24 01/24/2024 x-ray imagi ng repor t Patien t Name: Arley Norman Johanny Unit #: [id number] Loc: DIORS Orderi ng Provid er: Bhargav Syed M.D. Accoun t #: [id number] Status : PRE CLI Primar y Care Provid er: Chris Gillespie Date of Exam: Sex: F Admiss ion [...] re or loosen ing eviden t. IMPRES DONNA: Stable satisf actory appear ance DATA REPOSI TORY: RADIAT ION DOSE DELIVE RED: Ordere d By: Bhargav Syed M.D. CC: ------ ------ ------ ------ ------ ------ ------ ------ ------ ------ ------ ------ - Dictat ed By: Rober Stanton M.D. [id number] Transc ribed By: Maximino MARTE,Tawanna jose 113 This is privil eged, confid ential [...] the addres s above. Thank- you. INTERFACE [facility] [address], [place], [address] 01/24/2024 11:53:52 01/24/20 24 04/22/2021 imagi ng/di [...] Available 01/23 17:45:38 01/24/20 24 01/07/2023 US, duple x, venou s, extre mity No observ ation record ed. Not Available [...] Patien t Name: Arley Norman Unit #: [id number] Loc: ER Orderi ng Provid er: Mohit Wasserman i, M.D. Accoun t #: [id number] Status : PRE ER Primar y Care Provid er: Chris Gillespie Date of Exam: Sex: F : 1960 [...] recomm ended. Lung Apices : Clear. IMPRES DONNA: 1. No acute intrac ranial proces s. 2. No acute fractu re or sublux ation in the cervic al spine. RADIAT ION DOSE DELIVE RED: 1,209. 19mGy. cm Total DLP DATA REPOSI TORY: All CT scans at this facili ty are submit gabbie to the [facility] al Radiol ogy Data Regist ry (NRDR) Dose Index Regist ry (DIR) with the [employer] (ACR). RADIAT ION OPTIMI ZATION : [facility] use at least one of these dose optimi zation techni ques: automa gabbie exposu re contro l; mA and/or kV adjust ment per patien t size (inclu rich target ed exams where dose is matche d to clinic al indica tion); or iterat reilly recons tructi on. 1022-0 022: Total DLP [...] error, please notify us immedi ately at [phone] and return the origin al report to us at the addres s above. Thank- you. INTERFACE [place] [address] , [place], [address] 02/29/2024 17:26:33 02/29/2002/29/2024 x-ray imagi ng repor t Patien t Name: Arley Norman Unit #: [id number] Loc: ER Orderi ng Provid er: Mohit Wassemran i, M.D. Accoun t #: [id number] Status : PRE ER Primar y Care Provid er: Chris Gillespie Date of Exam: Sex: F Admiss ion [...] esis. SOFT TISSUE : Normal . IMPRES DONNA: Acute mildly impact ed subcap ital fractu re of the right femur. DATA REPOSI TORY: RADIAT ION DOSE DELIVE RED: Ordere d By: Mohit Wasserman i, M.D. CC: ------ ------ ------ ------ ------ ------ ------ ------ ------ ------ ------ ------ - Dictat ed By: Aiden Bergeron M.D. [id number] Transc ribed By: Aiden Bergeron 1724 This [...] the addres s above. Thank- you. INTERFACE [address], [place], [address] 02/29/2024 17:29:34 Result Notes None recorded. Problems Name Problem SNOMED Code Status Onset Date Resolution Date Notes Provider Name and Address Organization Details Recorded Time Gastroes ophageal reflux disease without esophagi tis 097224829 Active 2002 Orlin Alicea [facility] 4 18:50:25 Major depressi on, single episode 10505083 Active 2009 [facility] 4 18:51:57 Nicotine dependen ce 31972525 Completed 201103/31/2023 Problem Code: Z87.891; Problem Code Type: ICD-10; [address], [facility] [address] 3 13:52:48 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 9810160375 54313 Active [address], [facility] [address] 4 10:46:42 Bipolar disorder 99013207 Active 2012 [facility] 4 18:49:12 Hyperlip idemia 88044566 Active [address], [facility] [address] 4 10:49:59 Diaphrag matic hernia 83234248 Active 2013 [facility] 4 18:49:50 Shoulder joint pain 391612865 Completed 201403/31/2023 Problem Code: M25.519; Problem Code Type: ICD-10; [address], [facility] [address], [facility] 3 13:43:54 Acute sinusiti s 34302509 Completed 201506/26/2015 Problem Code: J01.90; Problem Code Type: ICD-10; MAIDA TOSCANO [address], [place], [address] 3 13:53:21 Acquired absence of cervix and uterus 935790805 Completed 201507/15/2023 Problem Code: Z90.710; Problem Code Type: ICD-10; [facility] 4 18:48:56 Pain in thoracic spine 846653058 Completed 201803/31/2023 Problem Code: M54.9; Problem Code Type: ICD-10; MAIDA TOSCANO [address], [place], [address] 3 13:44:02 Vitamin D deficien cy 94265616 Active 2019 [facility]. 4 18:52:57 Generali zed anxiety disorder 33991478 Active 2019 [facility] 4 18:50:32 Cholelit hiasis without obstruct ion 17516719 Active 2020 [facility] 4 18:49:27 Insomnia 133304518 Active 2020 [facility] 4 18:51:51 Hernia of anterior abdomina l wall 271396733 Active 2021 [facility] 4 18:51:22 Polyneur opathy 40913266 Active 2022 [facility] 4 18:52:04 Pain of left hip joint 2487833899 71368 Completed 202203/31/2023 Problem Code: M25.552; Problem Code Type: ICD-10; MAIDA TOSCANO [address], [place], [address], [facility] 3 13:44:40 Respirat ory crackles 57653056 Active 2022 MAIDA TOSCANO [address], [place], [address], [facility] 3 14:48:31 Edema 713885567 Active 2022 Orlin pantoja, [facility] 4 18:50:11 Proteinu maggi 79468839 Active 2022 Orlin pantoja, [facility] 4 18:52:16 Senile osteopor osis 74699602 Active 2022 MAIDA TOSCANO [address], [facility] [address], [facility] 4 10:53:05 Blood in urine 35623765 Active 2022 Orlin pantoja, [facility] 4 18:49:21 Tremor 52014576 Active 2019 facial movement s Orlin pantoja, [facility] 4 18:52:51 [facility] 808105176 Completed 202003/31/2023 06/09/19 23 - Comments only - Chris BEY - Reported as signific antly improved after completi ng PT. Problem Code: R27.9; Problem Code Type: ICD-10; [address], [place], [address], [facility] 3 13:45:29 Anemia 624224403 Completed 202007/03/2021 Problem Code: D64.9; Problem Code Type: ICD-10; Not Available [facility] 3 04:28:58 Nausea and vomiting 28488695 Completed 202007/03/2021 Problem Code: R11.2; Problem Code Type: ICD-10; Not Available [facility] 3 04:28:59 Mixed bipolar I disorder in partial remissio n 83592699 Completed 201912/10/2022 Problem Code: F31.77; Problem Code Type: ICD-10; Not Available [facility] 3 04:29:00 Enterost ghassan tao 78649714 Completed 202202/03/2023 Problem Code: K94.13; Problem Code Type: ICD-10; Not Available [facility] 3 04:29:00 Gastroes ophageal reflux disease 808758814 Completed 200202/03/2023 Problem Code: 530.81; Problem Code Type: ICD-9; [address], [place], [address], [facility] 3 14:48:31 Pain of right shoulder joint 4614706470 0704630 Completed 201402/03/2023 Problem Code: M25.511; Problem Code Type: ICD-10; Not Available [facility] 3 04:29:00 Tobacco user 170001218 Completed 201102/03/2023 Not Available [facility] 3 04:29:01 Left heart failure 25239134 Completed 202212/10/2022 Problem Code: I50.1; Problem Code Type: ICD-10; Not Available [facility] 3 04:29:01 Hiatal hernia 98295736 Completed 201302/03/2023 Not Available [facility] 3 04:29:02 Melena 5436351 Completed 202007/03/2021 Problem Code: K92.1; Problem Code Type: ICD-10; Not Available [facility] 3 04:29:03 Left heart failure 93555894 Completed 202212/10/2022 Problem Code: I50.1; Problem Code Type: ICD-10; Not Available [facility] 04:29:03 Secondar y parkinso nism 728553444 Completed 202112/10/2022 Problem Code: G21.19; Problem Code Type: ICD-10; Not Available [facility] 04:29:05 Noninfla mmatory disorder of the vagina 79021936 Completed 202007/03/2021 Problem Code: N89.8; Problem Code Type: ICD-10; [address], [facility] [address], [facility] 12:50:12 Bypass gastroje junostom y Active [address], [place] [address], [facility] 11:27:02 Cyst of vagina 13509727 Completed 202203/31/[address], [place] [address], [facility] 12:50:21 Farrell' s esophagu s 830173936 Completed 202203/31/[address], [facility] [address], [facility] 14:48:31 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 14:48:31 Gastroes ophageal reflux disease 553563645 Active [address], [place], [address], [facility], [facility] 3 14:48:31 History of atrial flutter 134777403 Active [address], [place], [address], [facility] 4 10:50:21 History of cardiomy opathy 6740669104 91458 Active 2022 Stress induced [address], [place], [address] [place] [address], [facility] 4 10:48:26 Hearing loss 59321422 Active [address], [place], [address], [facility] 4 10:52:32 Hearing loss 87907836 Active [address], [place], [address], [facility], [facility] 3 14:51:27 Cough 11925683 Completed 202207/15/2023 Orlin Alicea null, [facility], [facility] 4 18:53:36 Hip pain 32200702 Active 2022 Farideh Massey RN null, [facility] 3 15:18:22 Prosthet ic arthropl asty of hip Active 2022 Farideh Massey RN null, [facility] 3 15:18:56 Strictur e of esophagu s 82012237 Active [address], [place], [address], [facility], [facility] 4 13:06:33 Acute upper respirat ory infectio n 50276147 Completed 202307/15/2023 [facility] 4 18:53:17 Atrial flutter 5513857 Active 2022 [facility] 4 18:54:59 Low blood pressure 04588619 Active 2022 [facility] 4 18:55:17 Aftercar e Completed 202207/15/2023 02/25/20 [...] Z51.89; Problem Code Type: ICD-10; Orlin pantoja [facility] 4 18:54:42 Pneumoni tis caused by inhaled substanc e 382769828 Completed 202207/15/2023 Problem Code: J69.0; Problem Code Type: ICD-10; Orlin pantoja [facility] 4 18:54:15 Candidia sis of skin 35611806 Active [address], [facility] [address], [facility] 4 15:24:45 Hypoxia 770347340 Active [address], [facility] [address], [facility] 4 15:26:49 Muscle weakness 55182921 Active [address], [facility] [address], [facility] 4 15:33:20 Type 2 diabetes mellitus 63021380 Active [address], [address] 4 13:39:04 Aspirati on pneumoni a 946849421 Completed 202307/15/2023 Orlin Alicea [facility], [facility] 4 18:53:31 Total abdomina l hysterec yady Active [address], [address] 4 10:48:57 History of gallston es 543750129 Active 2020 Orlin Alicea [facility], [facility] 4 18:56:20 Pressure injury of buttock 799726444 Active [address], [place] [address], [facility] 4 09:34:51 Candidia sis of vagina 84609986 Active [address], [address] 4 09:36:38 Pruritus of vagina 54576481 Active [address], [place] [address], [facility] 4 09:48:28 History of pancreat itis 4940507875 9107 Active 2023 TYRON DRAPER MA null, [facility] 4 09:52:28 Gastrost ghassan feeding Active 2023 Farideh Massey RN null, [facility] 14:48:17 Gastrost ghassan Active 2023 Farideh Massey RN null, [facility] 4 14:55:33 Problem Notes None recorded. Procedures Surgical History Date Name Laterality Status Provider Name and Address Organization Details Recorded Time 3 Most Recent Mammogram completed Prachi Blancas RN [facility] 04/23/2023 14:35:47 3 Most Recent Bone Density completed [facility] 07/06/2023 11:40:24 2 Date of Last Colonoscopy completed [facility] 07/06/2023 11:45:32 Imaging Results None recorded. Procedure Notes None recorded. Medical Equipment None Reported. Allergies Allergen ID Allergen Name Allergen Category Reaction Reaction Severity Criticality Documentation Date Start Date Code Code System Note Provider Name and Address Organization Details Recorded Time 25837 metformin hydrochlo ride medicatio n diarrhea moderate Not available 03/19/20232019 34136 3 RxNorm Diarr hea Not Available [facility] 3 16:31:03 33274 Demerol medicatio n vomiting mild Not available 03/19/20232005 05009 1 RxNorm Orlin Alicea [facility], [facility] 4 18:45:52 Medications Name Sig Start Date [...] ous solution 10 units nightly 03/31 completed [facility] Endocrin ology 10/2022 Not [...] by mouth once a day 03/31 completed [facility] D/C 09/25/22 Not Available [...] day as directed 09/29 completed Changed per [facility] d/c summary 07/19/21 Not Available Not [...] as needed For nausea 02/24 completed Per [facility] d/c summary 07/19/21 Not Available Not [...] 10 % topical cream Apply a thin tie layer to 4 times a day as [...] AM and 1000mg at HS 04/14 completed [facility] D/C 09/25/22 Not Available [...] 6 mL three times daily 05/13 completed [facility] D/C 09/25/22 Not Available [...] by mouth once a day 03/31 completed [facility] D/C 09/25/22 Not Available [...] Available Vitals Date Recorded Body height Body mass index (BMI) Body weight Body temperature Oxygen saturation Oxygen saturation in Arterial blood by Pulse oximetry Heart rate Systolic blood pressure Diastolic blood pressure Provider Name and Address Organization Details Last Updated DateTime 154.94 cm 26.5 kg/m2 34578.6 5 g 97.3 [degF] 99 % 99 % 54 /min 112 mm[Hg] 64 mm[Hg] Prachi Blancas RN [facility] 11:11:58 Social History Question Answer Notes LastModified by Organizat ion Details LastModified Time Tobacco Smoking Status Former Smoker ESTHER YANG RN [facility], [facility] 05/13/2023 11:38:26 When Did You Quit Smoking? 1-5yearssin celastcigar ette [id number] Information not available 05/13/2023 Date Care Plan Printed: 11/18/2023 Information not available 11/18/2023 Assigned Graduating Machine Operator: Aggie [email or web address] Information not available 11/18/2023 Is [facility] The Lead Graduating Machine Operator? Yes Information not available 11/18/2023 Level Of Intensity: Bi-Annually And As Needed. Will Call Me Information not available 11/18/2023 Team Based Care: No Information not available 11/18/2023 Social Barrier Yes Informatio n not available 11/18/2023 Other Barriers To Care (See Note) Yes Pt Has Anxiety And Depression Which Worsens At Times Information not available 11/18/2023 Financial Barrier Yes Information not available 11/18/2023 Community Biophysics Professor Yes Information not available 11/18/2023 Diabetes Education [...] cause of internal bleeding - ? aneurysm. [place] age 60s, HTN, hyperlipidemia Had late onset [...] preservative free, adsorbed 07/12/2019 completed Not Available [facility] 03/19/2023 06:16:19 Tdap 01/09/2009 completed Not Available [facility] 06:16:20 Influenza, split virus, trivalent, preservative 01/31/2015 completed Not Available [facility] 03/19/2023 06:16:20 Influenza, split virus, trivalent, preservative 03/26/2016 completed Not Available [facility] 03/19/2023 06:16:20 Influenza, split virus, quadrivalent, PF 05/15/2019 completed Not Available [facility] 03/19/2023 06:16:20 Influenza, split virus, quadrivalent, PF 01/12/2020 completed Not Available [facility] 03/19/2023 06:16:20 Influenza, split virus, quadrivalent, PF 02/24/2022 completed Not Available [facility] 03/19/2023 06:16:20 Influenza, split virus, quadrivalent, PF 03/14/2021 completed Not Available [facility] 03/19/2023 06:16:20 Influenza, split virus, quadrivalent, preservative 02/04/2017 completed Not Available [facility] 03/19/2023 06:16:20 zoster recombinant 07/03/2021 completed Not Available [facility] 03/19/2023 06:16:20 zoster recombinant 11/06/2021 completed Not Available [facility] 03/19/2023 06:16:20 COVID-19, mRNA, LNP-S, PF, 100 mcg/0.5mL dose or 50 mcg/0.25mL dose 07/18/2020 completed Not Available [facility] 03/19/2023 06:16:21 COVID-19, mRNA, LNP-S, PF, 100 mcg/0.5mL dose or 50 mcg/0.25mL dose 08/15/2020 completed Not Available [facility] 03/19/2023 06:16:21 COVID-19, mRNA, LNP-S, PF, 100 mcg/0.5mL dose or 50 mcg/0.25mL dose 11/06/2021 completed Not Available [facility] 03/19/2023 06:16:21 COVID-19, mRNA, LNP-S, PF, 100 mcg/0.5mL dose or 50 mcg/0.25mL dose 03/14/2021 completed Not Available [facility] 03/19/2023 06:16:21 Pneumococcal conjugate PCV20, polysaccharide [id number] conjugate, adjuvant, PF 02/24/2022 completed Not Available [facility] 03/19/2023 06:16:21 COVID-19, mRNA, LNP-S, bivalent, PF, 30 mcg/0.3 mL dose 02/24/2022 completed Not Available [facility] 03/19/20 06:16:21 pneumococcal polysaccharide PPV23 01/09/2009 completed Not Available [facility] 2022 06:16:21 Influenza, split virus, quadrivalent, PF 02/24/2023 completed Not Available [facility] 05/21/2023 05:31:34 COVID-19, mRNA, LNP-S, PF, daniela-sucrose, 30 mcg/0.3 mL 02/24/2023 completed Not Available [facility] 05/21/2023 05:31:35 Past Encounters Encounter ID Performer Location Encounter Start Date Encounter Closed Date Diagnosis/Indication Diagnosis SNOMED-CT Code Diagnosis ICD10 Code [id number] MAIDA TOSCANO [address] [address] 12/03/2023 10:35:02 12/03/2023 11:43:48 Hyperglycemia due to type 2 diabetes mellitus 8422508440 22786 E11.65 Pruritus of vagina 62664 003 L29.3 Polyneuropathy 61165751 G62.9 Goals Section Goal Description Status Start [...] by Organization Details LastModified Time None Recorded Payers Encounter Date Sequence Insurance Name Policy Number Policy Camargo Covered Member ID Camargo Member ID Guarantor Name 12/03/2023 1 [facility] (MEDICAID) Jennifer Irving [id number] Jennifer Irving Notes Date Note Type Note Provider Name and Address Organization Details Recorded Time 12/03/2023 text/html HPI Notes: Jamaal oh is [...] or cane (for the past month). CHRIS GILLESPIE, MAIDA [address], [place], [address], [facility]. 12/04/2023 09:49:38 OBGyn Episode No OBEpisode recorded.
--- OUTSIDE RECORDS SUMMARY | 2024-02-29 21:25 | XMS_ITS | Encounter Summary ---
Author Organization [facility] Address [facility] [place] [address] Care Team Providers Care Outside Salesman Name Role Phone Ana Gillespie APRN Primary Care Provider [phone] Encounter Details Date Type Department Care Team (Late Contact Info) Description 01/19/2024 Telephone [place] [address] Chiquita James, RN Social History [...] regarding her tube feed. States he called [facility] today for supplies for her and was told her case has been closed requestingan order for her tube feed to resume be sent to [facility]. Forwarded documented in this encounter Plan of Treatment Upcoming Encounters Date Type Department Care Team (Late Contact Info) Description 03/10/2024 4:00 PM EDT Office Visit Cardiology at [address] [address] Milagros Hernandez MD [facility] [address] Scheduled Procedures Name Priority Associated Diagnoses Date/Ti me EGD, UPPER GI ENDOSCOPY (WRV U 2.09) Peptic stricture of esophagus documented as of this encounter Visit Diagnoses Not on filedocumented in this encounter Care Teams Outside Salesman Relationship Specialty Start Date End Date Ana Gillespie APRN [address] [place] [address] PCP - General Family Medicine 02/03/19 documented as of this encounter
--- OUTSIDE RECORDS SUMMARY | 2024-02-29 21:25 | XMS_ITS | Encounter Summary ---
Author Organization Formerly [facility] [place] [address] Care Team Providers Care Nut Dehydrator Operator Name Role Phone Ana Gillespie APRN Primary Care Provider [phone] Encounter Details Date Type Department Care Team (Late Contact Info) Description 10/25/2023 [place] [phone] David Dejesus MD [facility] [place] [address] Peptic stricture of esophagus Social History Tobacco [...] PM EDT Office Visit Cardiology at [address] [phone] Milagros Hernandez MD [facility] [place] [address] Scheduled Orders Name Type Priority Associated Diagnoses [...] esophagus documented in this encounter Care Teams Nut Dehydrator Operator Relationship Specialty Start Date End Date Ana Gillespie APRN [address] [place] [address] PCP - General Family Medicine 02/03/19 documented as of this encounter
--- OUTSIDE RECORDS SUMMARY | 2024-02-29 21:25 | XMS_ITS | Encounter Summary ---
Author Organization [facility] [place] [address] Care Team Providers Care Conservation Science Teacher Name Role Phone Ana Gillespie APRN Primary Care Provider [phone] Encounter Details Date Type Department Care Team [...] PM EDT Office Visit Cardiology at [address] [address] Milagros Hernandez MD [facility] [place] [address] Scheduled Procedures Name Priority Associated Diagnoses Date/Ti me EGD, UPPER GI ENDOSCOPY (WRV U 2.09) Peptic stricture of esophagus documented as of this encounter Visit Diagnoses Not on filedocumented in this encounter Care Teams Conservation Science Teacher Relationship Specialty Start Date End Date Ana Gillespie APRN [address] [place] [address] PCP - General Family Medicine 02/03/19 documented as of this encounter
--- OUTSIDE RECORDS SUMMARY | 2024-02-29 21:25 | XMS_ITS | Encounter Summary ---
[facility] [place] [address] Care Team Providers Care Mortgage Banker Name Role Phone Ana Gillespie VAUGHN Primary Care Provider [phone] Reason for Referral * Diagnostic Test (Routine) - Closed Specialty Diagnoses / Procedures Referred By Esperanza t Referred To Contact Radiology Diagnoses Problem with gastrostomy tube Farrell's esophagus with high grade dysplasia Farrell's esophagus with low grade dysplasia Procedures IR G-Tube Check/Change Hang Cooper PA [facility] [place] [address] [place] [address] Referral ID Status Reason Start Date Expiration Date V isits Requested Visits Authorized [id number] Closed Specialty Service Requested 09/23/2023 03/25/2025 1 1 Reason for Visit * Diagnostic Test (Routine) - Closed Specialty Diagnoses / Procedures Referred By Esperanza t Referred To Contact Radiology Diagnoses Problem with gastrostomy tube Farrell's esophagus with high grade dysplasia Farrell's esophagus with low grade dysplasia Procedures IR G-Tube Check/Change Hang Cooper PA [facility] [place] [address] [place] [address] Referral ID Status Reason Start Date Expiration Date V isits Requested Visits Authorized [id number] Closed Specialty Service Requested 09/23/2023 03/25/2025 1 1 Encounter Details Date Type Department Care Team (Latest Contact Info) Description 10/14/2023 10:11 AM EDT - 10/14/2023 11:59 PM EDT Hospital [place] [address] Geronimo Chambers, [facility] [place] [address] Problem with gastrostomy tube; Farrell's esophagus with [...] meter kit. 1 each 0 12/14/2014 Insulin [place], Disposable, (BD INSULIN PEN NEEDLE UF MINI) 31 x 3/16 NeedleIndications:Josefina betes mellitus type 2, uncontrolled 1 Device by Misc.(Non-Drug; Combo Route) route 3 times daily as needed. 100 each 11 12/13/2014 documented as of this encounter Progress Notes * Sergey Moraes RN - 10/10/2023 10:50 AM EDT ANGIO NURSING DATABASE Name: Jennifer Irving Date of : 1960 AGE: 63 y.o. Address: [address] [address] (home) Mobile: Telephone Information: Referring Provider: Hang Cooper REASON FOR VISIT: Order Questions Answers Where will study be performed? [facility] Radiology [120] To be scheduled Next [...] of Present Illness: Per chart review, Jennifer Irivng is a 63 y.o. female with PMH of left femoral neck fracture, bipolar, alcohol use disorder, chronic pancreatitis, GERD complicated byesophagitis and Farrell's esophagus s/p G-tube placement (09/11/22) with most recent exchange on 05/09/23 - 16Fr, now with reports of leaking around catheter with tube feeds, who presents to Interventional Radiology to undergo check/exchange of G-tube. Patient's reports that she was evaluated at [facility] for possible PNA, and the G-tube [...] on 09/16 due to occlusion. [place] tube could not be flushed. Exchanged [...] G-Tube Check/Change 11/27/2022 Hang Cooper PA [facility] INTERVENTIONL RAD IR G-TUBE CHECK/CHANGE 03/10/2023 IR G-Tube Check/Change 03/10/2023 Geronimo Chambers DO [facility] INTERVENTIONL RAD IR G-TUBE CHECK/CHANGE 04/06/2023 IR G-Tube Check/Change 04/06/2023 Gavin Carrillo MD [facility] INTERVENTIONL RAD IR G-TUBE CHECK/CHANGE 05/09/2023 IR G-Tube Check/Change [facility] INTERVENTIONL RAD IR G-TUBE CHECK/CHANGE 07/09/2023 IR G-Tube Check/Change [facility] INTERVENTIONL RAD IR G-TUBE CHECK/CHANGE 09/17/2023 IR G-Tube Check/Change 09/17/2023 Hang Cooper PA [facility] INTERVENTIONL RAD IR G-TUBE PLACEMENT 09/11/2022 IR G-Tube Placement 09/11/2022 Moustapha Hart MD [facility] INTERVENTIONL RAD IR SUTURE RELEASE 09/25/2022 IR Suture Release 09/25/2022 Yoselin Ghosh PA [facility] INTERVENTIONL RAD PERCUTANEOUS GASTROSTOMY N/A 09/11/2022 PERCUTANEOUS GASTROSTOMY performed by Aiden Flores MD at [facility] CATY PRO COLONOSCOPY, BIOPSY N/A 03/20/2016 COLONOSCOPY FLEXIBLE, WITH BX performed by David Dejesus MD at [facility] ENDOSCOPY PRO COLONOSCOPY, DIAGNOSTIC N/A 03/01/2020 COLONOSCOPY, DIAGNOSTIC performed by David Dejesus MD at [facility] ENDOSCOPY PRO ENDOSCOPIC US EXAM, ESOPH N/A 03/31/2022 UPPER EUS- ENDOSCOPIC ULTRASOUND performed by David Dejesus MD at [facility] ENDOSCOPY PRO UP GI ENDOSCOPY, BALL DIL, 30MM N/A 12/24/2022 EGD,WITH DILATION ESOPHAGUS WITH BALLOON,< 30 MM (WRVU 2.67) performed by David Dejesus MDat [facility] ENDOSCOPY PRO UP GI ENDOSCOPY, BALL DIL, 30MM N/A 01/12/2023 EGD,WITH DILATION ESOPHAGUS WITH BALLOON,< 30 MM (WRVU 2.67) performed by David Dejesus [facility] ENDOSCOPY PRO UP GI ENDOSCOPY, BALL DIL, 30MM N/A 02/26/2023 EGD,WITH DILATION ESOPHAGUS WITH BALLOON,< 30 MM (WRVU 2.67) performed by David Dejesus [facility] ENDOSCOPY PRO UP GI ENDOSCOPY, BALL DIL, 30MM N/A 03/16/2023 EGD,WITH DILATION ESOPHAGUS WITH BALLOON,< 30 MM (WRVU 2.67) performed by David Dejesus [facility] ENDOSCOPY PRO UP GI ENDOSCOPY, BALL DIL, 30MM N/A 03/30/2023 EGD,WITH DILATION ESOPHAGUS WITH BALLOON,< 30 MM (WRVU 2.67) performed by David Dejesus [facility] ENDOSCOPY PRO UP GI ENDOSCOPY, BALL DIL, 30MM N/A 04/30/2023 EGD,WITH DILATION ESOPHAGUS WITH BALLOON,< 30 MM (WRVU 2.67) performed by David Dejesus [facility] ENDOSCOPY PRO UP GI ENDOSCOPY, BALL DIL, 30MM N/A 06/01/2023 EGD,WITH DILATION ESOPHAGUS WITH BALLOON,< 30 MM (WRVU 2.67) performed by David Dejesus [facility] ENDOSCOPY PRO UP GI ENDOSCOPY, BALL DIL, 30MM N/A 08/02/2023 EGD,WITH DILATION ESOPHAGUS WITH BALLOON,< 30 MM (WRVU 2.67) performed by David Dejesus [facility] ENDOSCOPY PRO UP GI ENDOSCOPY, DILATN W GUIDE N/A 10/07/2023 EGD-ESOPHOGEAL DILATATION OVER GUIDE WIRE (WRVU 2.91) performed by David Dejesus MD at [facility] ENDOSCOPY PRO UPPER GI ENDOSCOPY, BIOPSY N/A 04/03/2014 UPPER GASTROINTESTINAL ENDOSCOPY,WITH BIOPSY SINGLE OR MULTIPLE performed by David Dejesus [facility] ENDOSCOPY PRO UPPER GI ENDOSCOPY, BIOPSY N/A 03/20/2016 EGD WITH BIOPSY performed by David Dejesus MD at [facility] ENDOSCOPY PRO UPPER GI ENDOSCOPY, BIOPSY N/A 11/22/2018 EGD WITH BIOPSY (WRVU 2.49) performed by David Dejesus MD at [facility] ENDOSCOPY PRO UPPER GI ENDOSCOPY, BIOPSY N/A 03/01/2020 UPPER GASTROINTESTINAL ENDOSCOPY,WITH BIOPSY SINGLE OR MULTIPLE (WRVU 2.49) performed by David Dejesus MD at [facility] ENDOSCOPY PRO UPPER GI ENDOSCOPY, BIOPSY N/A 09/23/2021 EGD WITH BIOPSY (WRVU 2.49) performed by David Dejesus MD at [facility] ENDOSCOPY PRO UPPER GI ENDOSCOPY, BIOPSY N/A 03/31/2022 EGD WITH BIOPSY (WRVU 2.49) performed by David Dejesus MD at [facility] ENDOSCOPY PRO UPPER GI ENDOSCOPY, BIOPSY N/A 07/03/2022 EGD WITH BIOPSY (WRVU 2.49) performed by David Dejesus MD at [facility] ENDOSCOPY PRO UPPER GI ENDOSCOPY, DIAGNOSTIC N/A 04/03/2014 EGD, UPPER GI ENDOSCOPY performed by David Dejesus MD at [facility] ENDOSCOPY PRO UPPER GI ENDOSCOPY, DIAGNOSTIC N/A 03/01/2020 EGD, UPPER GI ENDOSCOPY performed by David Dejesus MD at [facility] ENDOSCOPY PRO UPPER GI ENDOSCOPY, DIAGNOSTIC N/A 09/09/2022 EGD, UPPER GI ENDOSCOPY (WRVU 2.09) performed by Ayo Russ MD at [facility] MAIN OR Medications: Current Outpatient Medications [...] daily. 180 tablet 3 Blood Sugar Diagnostic (Civolution ULTRA TEST) Strip 1 each by Other [...] glucose meter kit. 1 each 0 Insulin [place], Disposable, (BD INSULIN PEN NEEDLE UF MINI) 31 x 3/16 Needle 1 Device by [facility]Non-Drug; Combo Route) route 3 times daily as [...] Gastrostomy tube exchange. Indication for Procedure: Per Jennfier Hastings Johanny Irving is a 63 y.o. [...] Patient's reports that she was evaluated at [facility] for possible PNA, and the G-tube [...] on 09/16 due to occlusion. [place] where tube could not be flushed. Exchanged [...] tube removed over the wire. A new16 Setswana balloon retained nonlow-profile gastrostomy tube was then [...] PM EDT Office Visit Cardiology at [address] [address] Milagros Hernandez MD [facility] [place] [address] Scheduled Procedures Name Priority Associated Diagnoses Date/Ti [...] Patient's reports that she was evaluated at [facility] for possible PNA, and the G-tube [...] 09/16 due to occlusion. Patient traveled to [place] where tube could not be flushed. Exchanged [...] removed over the wire. ??A new 16 Setswana balloon retained nonlow-profile gastrostomy tube was then [...] mLs documented in this encounter Care Teams Mortgage Banker Relationship Specialty Start Date End Date Ana Gillespie APRN [address] [place] [address] PCP - General Family Medicine 02/03/19 documented as of this encounter
--- OUTSIDE RECORDS SUMMARY | 2024-02-29 21:25 | XMS_ITS | Encounter Summary ---
Author Organization [facility] [place] [address] Care Team Providers Care Electrician Constructor Supervisor Name Role Phone Ana Gillespie APRN Primary Care Provider [phone] Encounter Details Date Type Department Care Team [...] PM EDT Office Visit Cardiology at [address] [address] Milagros Hernandez MD [facility] [place] [address] Scheduled Procedures Name Priority Associated Diagnoses Date/Ti me EGD, UPPER GI ENDOSCOPY (WRV U 2.09) Peptic stricture of esophagus documented as of this encounter Visit Diagnoses Not on filedocumented in this encounter Care Teams Electrician Constructor Supervisor Relationship Specialty Start Date End Date Ana Gillespie APRN [address] [place] [address] PCP - General Family Medicine 02/03/19 documented as of this encounter
--- OUTSIDE RECORDS SUMMARY | 2024-02-29 21:25 | XMS_ITS | Encounter Summary ---
Author Organization [facility] Address [facility] [place] [address] Care Team Providers Care Prover Name Role Phone Ana Gillespie VAUGHN Primary Care Provider Encounter Details Date Type Department Care Team (Latest Contact Info) Description 11/05/2023 6:41 AM EDT - 11/05/2023 9:54 AM EDT Hospital Encounter [place] [address] David Dejesus MD [facility] [place] [address] Discharge Disposition: Home Social History Tobacco Use [...] better as expected. Wednesday-Wednesday Same Day Endo [phone]-[phone] Otherwise contact [phone] and ask to speak to the fourdrinier tender planer stone Follow-up care is a fam part of [...] 180 tablet 3 10/20/2021 Blood Sugar Diagnostic (AriagoraTOUCH ULTRA TEST) StripIndications:Type 2 diabetes mellitus, uncontrolled [...] escorted out of department via wheelchair with /taxi driver supervisor. documented in this encounter H&P Notes * David Dejessu MD - 11/05/2023 8:35 AM EDT PROBLEM [...] glucose meter kit. 1 each 0 Insulin [place], Disposable, (BD INSULIN PEN NEEDLE [...] PM EDT Office Visit Cardiology at [address] [address] Milagros Hernandez MD [facility] CARDIOLOGY [place] [id number] Scheduled Procedures Name Priority Associated Diagnoses Date/Ti me EGD, UPPER GI ENDOSCOPY (WRV U 2.09) Peptic stricture of esophagus documented as of this encounter Procedures Procedure Name Priority Date/Time Associated Diagnosis Comments Up Gi Endoscopy, Dilatn W Guide (50819) 11/05/2023 8:34 AM EDT Peptic stricture of esophagus Dilate Esophagus (38007) 11/05/2023 8:34 AM EDT Peptic stricture of esophagus POCT GLUCOSE Routine 11/05/2023 7:50 AM EDT documented in this encounter Results * POCT Glucose (11/05/2023 7:50 AM EDT) Glucose, POC 86 65 - 199 mg/dL [facility] Comment: Supplemental ranges: <140 mg/dL before meals <180 mg/dL all other times of the day Blood 11/05/2023 7:50 AM EDT 11/05/2023 7:50 AM EDT David Dejesus MD POINT OF CARE TEST ORDERABLES [facility] [place] [address] documented in this encounter Visit Diagnoses Not [...] CRNA) documented in this encounter Care Teams Prover Relationship Specialty Start Date End Date Ana Gillespie APRN [address] [place] [address] PCP - General Family Medicine 02/03/19 documented as of this encounter
--- OUTSIDE RECORDS SUMMARY | 2024-02-29 21:25 | XMS_ITS | Encounter Summary ---
Author Organization [facility] [place] [address] Care Team Providers Care Statistical Reporting Analyst Name Role Phone Ana Gillespie VAUGHN Primary Care Provider [phone] Encounter Details Date Type Department Care Team (Late st Contact Info) Description 10/27/2023 Telephone Gastroenterology at [facility] [place] [phone] Parris Maravilla Social History Tobacco Use Types [...] - 10/27/2023 11:43 AM EDT Jennifer Irving [id number] Diagnosis/Indication: petic stricture - follow-up dilation in [...] your procedure. Who will likely be your armored truck driver for the procedure? *Please Verify [...] PM EDT Office Visit Cardiology at [address] [address] Milagros Hernandez MD [facility] [place] [address] Scheduled Procedures Name Priority Associated Diagnoses Date/Ti me EGD, UPPER GI ENDOSCOPY (WRV U 2.09) Peptic stricture of esophagus documented as of this encounter Visit Diagnoses Not on filedocumented in this encounter Care Teams Statistical Reporting Analyst Relationship Specialty Start Date End Date Ana Gillespie APRN [address] [place] [address] PCP - General Family Medicine 02/03/19 documented as of this encounter
--- OUTSIDE RECORDS SUMMARY | 2024-02-29 21:25 | XMS_ITS | Encounter Summary ---
Author Organization [facility] Address [facility] [place] [address] Care Team Providers Care Cell Assembly Pinner Name Role Phone Ana Gillespie VAUGHN Primary Care Provider [phone] Reason for Visit * Diagnostic Test (Routine) - Closed Specialty Diagnoses / Procedures Referred By Esperanza rodríguez Referred To Contact Radiology Diagnoses Problem with gastrostomy tube Procedures IR G-Tube Check/Change IR GJ-Tube Check/Change Sonny Pearson DO [facility] [place] [address] [facility] [place] [address] Referral ID Status Reason Start Date Expiration Date V isits Requested Visits Authorized [id number] Closed Specialty Service Requested 02/05/2024 08/04/2025 1 1 Encounter Details Date Type Department Care Team (Latest Contact Info) Description 02/07/2024 7:43 AM EDT - 02/07/2024 11:59 PM EDT Hospital [place] [address] Rio Hill MD [facility] [place] [address] Problem with gastrostomy tube Discharge Disposition: Home [...] encounter Discharge Instructions * Discharge Instructions* Merly aBrry RN - 02/07/2024 8:59 AM EDT Discharge [...] or its attachments. INTERVENTIONAL RADIOLOGY PHONE NUMBERS [phone] If you have a NON Low profile feeding tube, call with any questions or concerns. During regular office hours call: [phone]. If it is after regular office hours, weekends or holidays, please call [phone] and ask to speak to the Presidential Helicopter Crew Chief operations consultant for Interventional Radiology. If you have a low profile ???ESTRELLITA-BARLOW?? feeding tube, please call Dejah Stauffer RN for any issues: [phone]. Revised 02/23/19 documented in this encounter Medications [...] meter kit. 1 each 0 12/14/2014 Insulin [place], Disposable, (BD INSULIN PEN NEEDLE UF MINI) 31 x 3/16 NeedleIndications:Josefina betes mellitus type 2, uncontrolled 1 Device by Misc.(Non-Drug; Combo Route) route 3 times daily as needed. 100 each 11 12/13/2014 documented as of this encounter Progress Notes * Merly Barry RN - 02/07/2024 8:53 AM EDT ANGIO NURSING DATABASE Name: Jennifer Irving Date of : 1960 AGE: 63 y.o. Address: [address] [address] (home) Mobile: Telephone Information: Referring Provider: Sonny [...] PM EDT Office Visit Cardiology at [address] [address] Milagros Hernandez MD [facility] [address] Scheduled Procedures Name Priority Associated Diagnoses Date/Ti [...] None. Technique: The patient was positioned supine. Motorman/Woman imaging was performed with mixed air/contrast injection [...] of a EnFit 16 F gastrostomy tube. lollypop machine operator: Hang Cooper PA-C Attending of record: Rio Hill MD 02/07/2024 I, Dr. Hill, was not present for this procedure. Rio Hill MD IMG IR ORDERABLES documented in this encounter Visit Diagnoses Diagnosis Problem with gastrostomy tube documented in this encounter Care Teams Cell Assembly Pinner Relationship Specialty Start Date End Date Ana Gillespie APRN [address] [place] [address] PCP - General Family Medicine 02/03/19 documented as of this encounter
--- OUTSIDE RECORDS SUMMARY | 2024-02-29 21:25 | XMS_ITS | Encounter Summary ---
Author Organization [facility] [place] [address] Care Team Providers Care Ux Interaction Designer Name Role Phone Ana Gillespie APRN Primary Care Provider [phone] Encounter Details Date Type Department Care Team (Late st Contact Info) Description 02/05/2024 Orders Only Radiology at [facility] [place] [address] Sonny Pearson DO [facility] [place] [address] Problem with gastrostomy tube Social History Tobacco [...] PA [facility] INTERVENTION[facility] RAD IR G-TUBE CHECK/CHANGE 03/10/2023 IR G-Tube Check/Change 03/10/2023 Geronimo Chambers DO [facility] INTERVENTION[facility] RAD IR G-TUBE CHECK/CHANGE 04/06/2023 IR G-Tube Check/Change 04/06/2023 Gavin Carrillo MD [facility] INTER[facility]ION[facility] RAD IR G-TUBE CHECK/CHANGE 05/09/2023 IR G-Tube Check/Change [facility] INTER[facility] RAD IR G-TUBE CHECK/CHANGE 07/09/2023 IR G-Tube Check/Change [facility] INTER[facility] RAD IR G-TUBE CHECK/CHANGE 09/17/2023 IR G-Tube Check/Change 09/17/2023 Hang Cooper PA [facility] INTERVENTION[facility] RAD IR G-TUBE CHECK/CHANGE 10/14/2023 IR G-Tube Check/Change 10/14/2023 Moustapha Hart MD [facility] INTERVENTION[facility] RAD IR G-TUBE PLACEMENT 09/11/2022 IR G-Tube Placement 09/11/2022 Moustapha Hart MD [facility] INTERVENTION[facility] RAD IR SUTURE RELEASE 09/25/2022 IR Suture Release 09/25/2022 Yoselin Ghosh PA [facility] INTERVENTION[facility] RAD PERCUTANEOUS GASTROSTOMY N/A 09/11/2022 PERCUTANEOUS GASTROSTOMY performed by Aiden Flores MD at [facility] CATY PRO COLONOSCOPY, BIOPSY N/A 03/20/2016 COLONOSCOPY FLEXIBLE, WITH BX performed by David Dejesus MD at [facility] ENDOSCOPY PRO COLONOSCOPY, DIAGNOSTIC N/A 03/01/2020 COLONOSCOPY, DIAGNOSTIC performed by David Dejesus MD at [facility] ENDOSCOPY PRO DILATE ESOPHAGUS N/A 11/05/2023 EGD-DILATATION BY SOUND OR BOUGIE, SINGLE OR MULTIPLE PASSES (WRVU 1.28) performed by David Dejesus MD at [facility] ENDOSCOPY PRO ENDOSCOPIC US EXAM, ESOPH N/A 03/31/2022 UPPER EUS- ENDOSCOPIC ULTRASOUND performed by David Dejesus MD at [facility] ENDOSCOPY PRO UP GI ENDOSCOPY, BALL DIL, 30MM N/A 12/24/2022 EGD,WITH DILATION ESOPHAGUS WITH BALLOON,< 30 MM (WRVU 2.67) performed by David Dejesus MDat [facility] ENDOSCOPY PRO UP GI ENDOSCOPY, BALL DIL, 30MM N/A 01/12/2023 EGD,WITH DILATION ESOPHAGUS WITH BALLOON,< 30 MM (WRVU 2.67) performed by David Dejesus MDat [facility] ENDOSCOPY PRO UP GI ENDOSCOPY, BALL DIL, 30MM N/A 02/26/2023 EGD,WITH DILATION ESOPHAGUS WITH BALLOON,< 30 MM (WRVU 2.67) performed by David Dejesus MDat [facility] ENDOSCOPY PRO UP GI ENDOSCOPY, BALL DIL, 30MM N/A 03/16/2023 EGD,WITH DILATION ESOPHAGUS WITH BALLOON,< 30 MM (WRVU 2.67) performed by David Dejesus [facility] ENDOSCOPY PRO UP GI ENDOSCOPY, BALL DIL, 30MM N/A 03/30/2023 EGD,WITH DILATION ESOPHAGUS WITH BALLOON,< 30 MM (WRVU 2.67) performed by David Dejesus [facility] ENDOSCOPY PRO UP GI ENDOSCOPY, BALL DIL, 30MM N/A 04/30/2023 EGD,WITH DILATION ESOPHAGUS WITH BALLOON,< 30 MM (WRVU 2.67) performed by David Dejesus [facility] ENDOSCOPY PRO UP GI ENDOSCOPY, BALL DIL, 30MM N/A 06/01/2023 EGD,WITH DILATION ESOPHAGUS WITH BALLOON,< 30 MM (WRVU 2.67) performed by David Dejesus [facility] ENDOSCOPY PRO UP GI ENDOSCOPY, BALL DIL, 30MM N/A 08/02/2023 EGD,WITH DILATION ESOPHAGUS WITH BALLOON,< 30 MM (WRVU 2.67) performed by David Dejesus [facility] ENDOSCOPY PRO UP GI ENDOSCOPY, DILATN W GUIDE N/A 10/07/2023 EGD-ESOPHOGEAL DILATATION OVER GUIDE WIRE (WRVU 2.91) performed by David Dejesus MD at [facility] ENDOSCOPY PRO UP GI ENDOSCOPY, DILATN W GUIDE N/A 11/05/2023 EGD-ESOPHOGEAL DILATATION OVER GUIDE WIRE (WRVU 2.91) performed by David Dejesus MD at [facility] ENDOSCOPY PRO UPPER GI ENDOSCOPY, BIOPSY N/A 04/03/2014 UPPER GASTROINTESTINAL ENDOSCOPY,WITH BIOPSY SINGLE OR MULTIPLE [facility]PPER GI ENDOSCOPY, BIOPSY N/A 03/20/2016 EGD WITH BIOPSY performed by David Dejesus MD at [facility] ENDOSCOPY PRO UPPER GI ENDOSCOPY, BIOPSY N/A 11/22/2018 EGD WITH BIOPSY (WRVU 2.49) performed by David Dejesus MD at [facility] ENDOSCOPY PRO UPPER GI ENDOSCOPY, BIOPSY N/A 03/01/2020 UPPER GASTROINTESTINAL ENDOSCOPY,WITH BIOPSY SINGLE OR MULTIPLE (WRVU 2.49) performed by David Dejesus MD at [facility] ENDOSCOPY PRO UPPER GI ENDOSCOPY, BIOPSY N/A 09/23/2021 EGD WITH BIOPSY (WRVU 2.49) performed by David Dejesus MD at [facility] ENDOSCOPY PRO UPPER GI ENDOSCOPY, BIOPSY N/A 03/31/2022 EGD WITH BIOPSY (WRVU 2.49) performed by David Dejesus MD at [facility] ENDOSCOPY PRO UPPER GI ENDOSCOPY, BIOPSY N/A 07/03/2022 EGD WITH BIOPSY (WRVU 2.49) performed by David Dejesus MD at [facility] ENDOSCOPY PRO UPPER GI ENDOSCOPY, DIAGNOSTIC N/A 04/03/2014 EGD, UPPER GI ENDOSCOPY performed by David Dejesus MD at [facility] ENDOSCOPY PRO UPPER GI ENDOSCOPY, DIAGNOSTIC N/A 03/01/2020 EGD, UPPER GI ENDOSCOPY performed by David Dejesus MD at [facility] ENDOSCOPY PRO UPPER GI ENDOSCOPY, DIAGNOSTIC N/A 09/09/2022 EGD, UPPER GI ENDOSCOPY (WRVU 2.09) performed by Ayo Russ MD at [facility] MAIN OR Medications: Current Outpatient Medications [...] glucose meter kit. 1 each 0 Insulin Adger, Disposable, (BD INSULIN PEN NEEDLE UF MINI) 31 x 3/16 Needle 1 Device by [facility]Non-Drug; Combo Route) route 3 times daily as [...] procedure) Assessment: 63 y.o. female presents to [facility] for G Tube exchange. Last exchange on [...] PM EDT Office Visit Cardiology at [address] [address] Milagros Hernandez MD [facility] [address] Scheduled Procedures Name Priority Associated Diagnoses Date/Ti me EGD, UPPER GI ENDOSCOPY (WRV U 2.09) Peptic stricture of esophagus documented as of this encounter Visit Diagnoses Diagnosis Problem with gastrostomy tube documented in this encounter Care Teams Ux Interaction Designer Relationship Specialty Start Date End Date Ana Gillespie APRN [address] [place] [address] PCP - General Family Medicine 02/03/19 documented as of this encounter
--- OUTSIDE RECORDS SUMMARY | 2024-02-29 21:25 | XMS_ITS | Encounter Summary ---
Author Organization [facility] [place] [address] Care Team Providers Care Mirror Specialist Name Role Phone Ana Gillespie APRN Primary Care Provider [phone] Encounter Details Date Type Department Care Team [...] PM EDT Office Visit Cardiology at [address] [address] Milagros Hernandez MD [facility] [address] Scheduled Procedures Name Priority Associated Diagnoses Date/Ti me EGD, UPPER GI ENDOSCOPY (WRV U 2.09) Peptic stricture of esophagus documented as of this encounter Visit Diagnoses Not on filedocumented in this encounter Care Teams Mirror Specialist Relationship Specialty Start Date End Date Ana Gillespie APRN [address] [place] [address] PCP - General Family Medicine 02/03/19 documented as of this encounter
--- OUTSIDE RECORDS SUMMARY | 2024-02-29 21:25 | XMS_ITS | Encounter Summary ---
Author Organization [facility] [place] [address] Care Team Providers Care Transit Police Officer Name Role Phone Ana Gillespie APRN Primary Care Provider [phone] Encounter Details Date Type Department Care Team (Late st Contact Info) Description 10/07/2023 10:41 AM EDT Anesthesia [place] [address] Alex Conley MD [facility] DR [place] [address] Valerie Vital CRNA [facility] DR [place] [address] Anesthesia Record Procedure Summary Procedure Name Responsible [...] by Sergey Jordan RN PIV 10/07/23; 1041; ioem-pyx-rbfips catheter system; 20 gauge, 1 in length; [...] Procedure Summary Date: 10/07/23 Room / Location: [facility] ENDO 1 / [facility] Anesthesia Start: 1041 Anesthesia Stop: 1123 Procedure: EGD-ESOPHOGEAL DILATATION OVER GUIDE WIRE (WRVU 2.91) (Trunk) Diagnosis: Peptic stricture of esophagus (shedule one month - peptic stricture dilation) Surgeons: David Dejesus MD Responsible Provider: Anesthesia Type: MAC ASA Status: 3 All Anesthesia Providers: Student Nurse Data Governance Consultant: Zenia Montiel Vitals Value Taken Time BP 148/72 10/07/23 1140 Temp Pulse Resp 15 10/07/23 1140 SpO2 100 % 10/07/23 1148 Pain Level 0 10/07/23 1140 Vitals shown include unfiled device data. [facility] Level of Consciousness: Conscious but Sleepy [...] IR G-Tube Check/Change 11/27/2022 Hang Cooper PA [facility] RAD ??? IR G-TUBE CHECK/CHANGE 03/10/2023 IR G-Tube Check/Change 03/10/2023 Geronimo Chambers, DO [facility] INTERVENTIONL RAD ??? IR G-TUBE CHECK/CHANGE 04/06/2023 IR G-Tube Check/Change 04/06/2023 Gavin Carrillo MD [facility] INTERVENTION[facility] RAD ??? IR G-TUBE CHECK/CHANGE 05/09/2023 IR G-Tube Check/Change [facility] INTER[facility] RAD ??? IR G-TUBE CHECK/CHANGE 07/09/2023 IR G-Tube Check/Change [facility] INTER[facility] RAD ??? IR G-TUBE CHECK/CHANGE 09/17/2023 IR G-Tube Check/Change 09/17/2023 Hang Cooper PA [facility] INTERVENTION[facility] RAD ??? IR G-TUBE PLACEMENT 09/11/2022 IR G-Tube Placement 09/11/2022 Moustapha Hart MD [facility] INTERVENTION[facility] RAD ??? IR SUTURE RELEASE 09/25/2022 IR Suture Release 09/25/2022 Yoselin Ghosh PA [facility] INTERVENTION[facility] RAD ??? PERCUTANEOUS GASTROSTOMY N/A 09/11/2022 PERCUTANEOUS GASTROSTOMY performed by Aiden Flores MD at [facility] CATY ??? PRO COLONOSCOPY, BIOPSY N/A 03/20/2016 COLONOSCOPY FLEXIBLE, WITH BX performed by David Dejesus MD at [facility] ENDOSCOPY ??? PRO COLONOSCOPY, DIAGNOSTIC N/A 03/01/2020 COLONOSCOPY, DIAGNOSTIC performed by David Dejesus MD at [facility] ENDOSCOPY ??? PRO ENDOSCOPIC US EXAM, ESOPH N/A 03/31/2022 UPPER EUS- ENDOSCOPIC ULTRASOUND performed by David Dejesus MD at [facility] ENDOSCOPY ??? PRO UP GI ENDOSCOPY, BALL DIL, 30MM N/A 12/24/2022 EGD,WITH DILATION ESOPHAGUS WITH BALLOON,< 30 MM (WRVU 2.67) performed by David Dejesus [facility] ENDOSCOPY ??? PRO UP GI ENDOSCOPY, BALL DIL, 30MM N/A 01/12/2023 EGD,WITH DILATION ESOPHAGUS WITH BALLOON,< 30 MM (WRVU 2.67) performed by David Dejesus [facility] ENDOSCOPY ??? PRO UP GI ENDOSCOPY, BALL DIL, 30MM N/A 02/26/2023 EGD,WITH DILATION ESOPHAGUS WITH BALLOON,< 30 MM (WRVU 2.67) performed by David Dejesus [facility] ENDOSCOPY ??? PRO UP GI ENDOSCOPY, BALL DIL, 30MM N/A 03/16/2023 EGD,WITH DILATION ESOPHAGUS WITH BALLOON,< 30 MM (WRVU 2.67) performed by David Dejesus [facility] ENDOSCOPY ??? PRO UP GI ENDOSCOPY, BALL DIL, 30MM N/A 03/30/2023 EGD,WITH DILATION ESOPHAGUS WITH BALLOON,< 30 MM (WRVU 2.67) performed by David Dejesus [facility] ENDOSCOPY ??? PRO UP GI ENDOSCOPY, BALL DIL, 30MM N/A 04/30/2023 EGD,WITH DILATION ESOPHAGUS WITH BALLOON,< 30 MM (WRVU 2.67) performed by David Dejesus [facility] ENDOSCOPY ??? PRO UP GI ENDOSCOPY, BALL DIL, 30MM N/A 06/01/2023 EGD,WITH DILATION ESOPHAGUS WITH BALLOON,< 30 MM (WRVU 2.67) performed by David Dejesus [facility] ENDOSCOPY ??? PRO UP GI ENDOSCOPY, BALL DIL, 30MM N/A 08/02/2023 EGD,WITH DILATION ESOPHAGUS WITH BALLOON,< 30 MM (WRVU 2.67) performed by David Dejesus [facility] ENDOSCOPY ??? PRO UPPER GI ENDOSCOPY, BIOPSY N/A 04/03/2014 UPPER GASTROINTESTINAL ENDOSCOPY,WITH BIOPSY SINGLE OR MULTIPLE performed by David Dejesus [facility] ENDOSCOPY ??? PRO UPPER GI ENDOSCOPY, BIOPSY N/A 03/20/2016 EGD WITH BIOPSY performed by David Dejesus MD at [facility] ENDOSCOPY ??? PRO UPPER GI ENDOSCOPY, BIOPSY N/A 11/22/2018 EGD WITH BIOPSY (WRVU 2.49) performed by David Dejesus MD at [facility] ENDOSCOPY ??? PRO UPPER GI ENDOSCOPY, BIOPSY N/A 03/01/2020 UPPER GASTROINTESTINAL ENDOSCOPY,WITH BIOPSY SINGLE OR MULTIPLE (WRVU 2.49) performed by David Dejesus MD at [facility] ENDOSCOPY ??? PRO UPPER GI ENDOSCOPY, BIOPSY N/A 09/23/2021 EGD WITH BIOPSY (WRVU 2.49) performed by David Dejesus MD at [facility] ENDOSCOPY ??? PRO UPPER GI ENDOSCOPY, BIOPSY N/A 03/31/2022 EGD WITH BIOPSY (WRVU 2.49) performed by David Dejesus MD at [facility] ENDOSCOPY ??? PRO UPPER GI ENDOSCOPY, BIOPSY N/A 07/03/2022 EGD WITH BIOPSY (WRVU 2.49) performed by David Dejesus MD at [facility] ENDOSCOPY ??? PRO UPPER GI ENDOSCOPY, DIAGNOSTIC N/A 04/03/2014 EGD, UPPER GI ENDOSCOPY performed by David Dejesus MD at [facility] ENDOSCOPY ??? PRO UPPER GI ENDOSCOPY, DIAGNOSTIC N/A 03/01/2020 EGD, UPPER GI ENDOSCOPY performed by David Dejesus MD at [facility] ENDOSCOPY ??? PRO UPPER GI ENDOSCOPY, DIAGNOSTIC N/A 09/09/2022 EGD, UPPER GI ENDOSCOPY (WRVU 2.09) performed by Ayo Russ MD at [facility] MAIN OR Social History Tobacco Use [...] risks discussed with patient. Plan discussed with RELOCATION SPECIALIST. Anesthesia Screening * Anesthesia Preprocedure Evaluation [...] IR G-Tube Check/Change 11/27/2022 Hang Cooper PA [facility] RAD ??? IR G-TUBE CHECK/CHANGE 03/10/2023 IR G-Tube Check/Change 03/10/2023 Geronimo Chambers, DO [facility] RAD ??? IR G-TUBE CHECK/CHANGE 04/06/2023 IR G-Tube Check/Change 04/06/2023 Gavin Carrillo MD [facility] RAD ??? IR G-TUBE CHECK/CHANGE 05/09/2023 IR G-Tube Check/Change [facility] RAD ??? IR G-TUBE CHECK/CHANGE 07/09/2023 IR G-Tube Check/Change [facility] RAD ??? IR G-TUBE PLACEMENT 09/11/2022 IR G-Tube Placement 09/11/2022 Moustapha Hart MD [facility] RAD ??? IR SUTURE RELEASE 09/25/2022 IR Suture Release 09/25/2022 Yoselin Ghosh PA [facility] RAD ??? PERCUTANEOUS GASTROSTOMY N/A 09/11/2022 PERCUTANEOUS GASTROSTOMY performed by Aiden Flores MD at [facility] CATY ??? PRO COLONOSCOPY, BIOPSY N/A 03/20/2016 COLONOSCOPY FLEXIBLE, WITH BX performed by David Dejesus MD at [facility] ENDOSCOPY ??? PRO COLONOSCOPY, DIAGNOSTIC N/A 03/01/2020 COLONOSCOPY, DIAGNOSTIC performed by David Dejesus MD at [facility] ENDOSCOPY ??? PRO ENDOSCOPIC US EXAM, ESOPH N/A 03/31/2022 UPPER EUS- ENDOSCOPIC ULTRASOUND performed by David Dejesus MD at [facility] ENDOSCOPY ??? PRO UP GI ENDOSCOPY, BALL DIL, 30MM N/A 12/24/2022 EGD,WITH DILATION ESOPHAGUS WITH BALLOON,< 30 MM (WRVU 2.67) performed by David Dejesus [facility] ENDOSCOPY ??? PRO UP GI ENDOSCOPY, BALL DIL, 30MM N/A 01/12/2023 EGD,WITH DILATION ESOPHAGUS WITH BALLOON,< 30 MM (WRVU 2.67) performed by David Dejesus [facility] ENDOSCOPY ??? PRO UP GI ENDOSCOPY, BALL DIL, 30MM N/A 02/26/2023 EGD,WITH DILATION ESOPHAGUS WITH BALLOON,< 30 MM (WRVU 2.67) performed by David Dejesus [facility] ENDOSCOPY ??? PRO UP GI ENDOSCOPY, BALL DIL, 30MM N/A 03/16/2023 EGD,WITH DILATION ESOPHAGUS WITH BALLOON,< 30 MM (WRVU 2.67) performed by David Dejesus [facility] ENDOSCOPY ??? PRO UP GI ENDOSCOPY, BALL DIL, 30MM N/A 03/30/2023 EGD,WITH DILATION ESOPHAGUS WITH BALLOON,< 30 MM (WRVU 2.67) performed by David Dejesus [facility] ENDOSCOPY ??? PRO UP GI ENDOSCOPY, BALL DIL, 30MM N/A 04/30/2023 EGD,WITH DILATION ESOPHAGUS WITH BALLOON,< 30 MM (WRVU 2.67) performed by David Dejesus [facility] ENDOSCOPY ??? PRO UP GI ENDOSCOPY, BALL DIL, 30MM N/A 06/01/2023 EGD,WITH DILATION ESOPHAGUS WITH BALLOON,< 30 MM (WRVU 2.67) performed by David Dejesus [facility] ENDOSCOPY ??? PRO UP GI ENDOSCOPY, BALL DIL, 30MM N/A 08/02/2023 EGD,WITH DILATION ESOPHAGUS WITH BALLOON,< 30 MM (WRVU 2.67) performed by David Dejesus [facility] ENDOSCOPY ??? PRO UPPER GI ENDOSCOPY, BIOPSY N/A 04/03/2014 UPPER GASTROINTESTINAL ENDOSCOPY,WITH BIOPSY SINGLE OR MULTIPLE performed by David Dejesus [facility] ENDOSCOPY ??? PRO UPPER GI ENDOSCOPY, BIOPSY N/A 03/20/2016 EGD WITH BIOPSY performed by David Dejesus MD at [facility] ENDOSCOPY ??? PRO UPPER GI ENDOSCOPY, BIOPSY N/A 11/22/2018 EGD WITH BIOPSY (WRVU 2.49) performed by David Dejesus MD at [facility] ENDOSCOPY ??? PRO UPPER GI ENDOSCOPY, BIOPSY N/A 03/01/2020 UPPER GASTROINTESTINAL ENDOSCOPY,WITH BIOPSY SINGLE OR MULTIPLE (WRVU 2.49) performed by David Dejesus MD at [facility] ENDOSCOPY ??? PRO UPPER GI ENDOSCOPY, BIOPSY N/A 09/23/2021 EGD WITH BIOPSY (WRVU 2.49) performed by David Dejesus MD at [facility] ENDOSCOPY ??? PRO UPPER GI ENDOSCOPY, BIOPSY N/A 03/31/2022 EGD WITH BIOPSY (WRVU 2.49) performed by David Dejesus MD at [facility] ENDOSCOPY ??? PRO UPPER GI ENDOSCOPY, BIOPSY N/A 07/03/2022 EGD WITH BIOPSY (WRVU 2.49) performed by David Dejesus MD at [facility] ENDOSCOPY ??? PRO UPPER GI ENDOSCOPY, DIAGNOSTIC N/A 04/03/2014 EGD, UPPER GI ENDOSCOPY performed by David Dejesus MD at [facility] ENDOSCOPY ??? PRO UPPER GI ENDOSCOPY, DIAGNOSTIC N/A 03/01/2020 EGD, UPPER GI ENDOSCOPY performed by David Dejesus MD at [facility] ENDOSCOPY ??? PRO UPPER GI ENDOSCOPY, DIAGNOSTIC N/A 09/09/2022 EGD, UPPER GI ENDOSCOPY (WRVU 2.09) performed by Ayo Russ MD at [facility] MAIN OR Social History Tobacco Use [...] PM EDT Office Visit Cardiology at [address] [place] [address] Milagros Hernandez MD [facility] [place] [address] Scheduled Procedures Name Priority Associated Diagnoses Date/Ti [...] mg documented in this encounter Care Teams Transit Police Officer Relationship Specialty Start Date End Date Ana Gillespie APRN [address] [place] [address] PCP - General Family Medicine 02/03/19 documented as of this encounter
--- OUTSIDE RECORDS SUMMARY | 2024-02-29 21:25 | XMS_ITS | Encounter Summary ---
Author Organization [facility] Address [facility] [place] [address] Care Team Providers Care Rotary Pump Operator Name Role Phone Ana Gillespie APRN Primary Care Provider [phone] Encounter Details Date Type Department Care Team (Late st Contact Info) Description 02/23/2024 Telephone [place] [phone] [facility] [place] [address] Social History Tobacco Use Types Packs/Day Years [...] Miscellaneous Notes * Telephone Encounter - Tenisha Fairchild RD - 02/23/2024 3:20 PM EDT [...] PM EDT Office Visit Cardiology at [address] [address] Milagros Hernandez MD [facility] [address] Scheduled Procedures Name Priority Associated Diagnoses Date/Ti me EGD, UPPER GI ENDOSCOPY (WRV U 2.09) Peptic stricture of esophagus documented as of this encounter Visit Diagnoses Not on filedocumented in this encounter Care Teams Rotary Pump Operator Relationship Specialty Start Date End Date Ana Gillespie APRN [address] [place] [address] PCP - General Family Medicine 02/03/19 documented as of this encounter
--- OUTSIDE RECORDS SUMMARY | 2024-02-29 21:25 | XMS_ITS | Encounter Summary ---
Author Organization [facility] Address [facility] [place] [address] Care Team Providers Care Publishing Manager Name Role Phone Ana Gillespie APRN Primary Care Provider [phone] Encounter Details Date Type Department Care Team (Late st Contact Info) Description 12/13/2023 Telephone [place] [phone] Kiko Ashley Social History Tobacco Use Types [...] PM EDT Office Visit Cardiology at [address] [phone] Milagros Hernandez MD [facility] [place] [address] Scheduled Procedures Name Priority Associated Diagnoses Date/Ti me EGD, UPPER GI ENDOSCOPY (WRV U 2.09) Peptic stricture of esophagus documented as of this encounter Visit Diagnoses Not on filedocumented in this encounter Care Teams Publishing Manager Relationship Specialty Start Date End Date Ana Gillespie APRN [address] [place] [address] PCP - General Family Medicine 02/03/19 documented as of this encounter
--- OUTSIDE RECORDS SUMMARY | 2024-02-29 21:26 | XMS_ITS | Encounter Summary ---
Author Organization [facility] Address [facility] [place] [address] Care Team Providers Care County Library Director Name Role Phone Ana Gillespie VAUGHN Primary Care Provider Encounter Details Date Type Department Care Team (Late st Contact Info) Description 07/04/2023 Telephone Cardiology at [address] [place] [phone] Gaby Lockett APRN [facility] [place] [address] Social History Tobacco Use Types Packs/Day Years [...] received a call from Dr. Trimble from [facility] through the . Per Dr. Trimble: Overnight [...] PM EDT Office Visit Cardiology at [address] [phone] Milagros Hernandez MD [facility] [address] Scheduled Procedures Name Priority Associated Diagnoses Date/Ti me EGD, UPPER GI ENDOSCOPY (WRV U 2.09) Peptic stricture of esophagus documented as of this encounter Visit Diagnoses Not on filedocumented in this encounter Care Teams County Library Director Relationship Specialty Start Date End Date Ana Gillespie APRN [address] [place] [address] PCP - General Family Medicine 02/03/19 documented as of this encounter
--- OUTSIDE RECORDS SUMMARY | 2024-02-29 21:26 | XMS_ITS | Encounter Summary ---
[place] [address] Care Team Providers Care Cargo Station Worker Name Role Phone Ana Gillespie APRN Primary Care Provider [phone] Reason for Visit * Reason Onset Date Comments Prior Authorization 07/21/2023 Encounter Details Date Type Department Care Team (Late st Contact Info) Description 07/21/2023 [place] [address] Radha Urena Prior Authorization Social History Tobacco [...] PM EDT Office Visit Cardiology at [address] [phone] Milagros Hernandez MD [facility] [place] [address] Scheduled Procedures Name Priority Associated Diagnoses Date/Ti me EGD, UPPER GI ENDOSCOPY (WRV U 2.09) Peptic stricture of esophagus documented as of this encounter Visit Diagnoses Not on filedocumented in this encounter Care Teams Cargo Station Worker Relationship Specialty Start Date End Date Ana Gillespie APRN [address] [place] [address] PCP - General Family Medicine 02/03/19 documented as of this encounter
--- OUTSIDE RECORDS SUMMARY | 2024-02-29 21:26 | XMS_ITS | Encounter Summary ---
Author Organization [facility] [address] Care Team Providers Care Rackman Name Role Phone Ana Gillespie APRN Primary Care Provider [phone] Encounter Details Date Type Department Care Team [...] PM EDT Office Visit Cardiology at [address] [address] Milagros Hernandez MD [facility] [place] [address] Scheduled Procedures Name Priority Associated Diagnoses Date/Ti me EGD, UPPER GI ENDOSCOPY (WRV U 2.09) Peptic stricture of esophagus documented as of this encounter Visit Diagnoses Not on filedocumented in this encounter Care Teams Rackman Relationship Specialty Start Date End Date Ana Gillespie APRN [address] [place] [address] PCP - General Family Medicine 02/03/19 documented as of this encounter
--- OUTSIDE RECORDS SUMMARY | 2024-02-29 21:26 | XMS_ITS | Encounter Summary ---
Author Organization [facility] Address [facility] [place] [address] Care Team Providers Care Valve Seater Operator Name Role Phone Ana Gillespie APRN Primary Care Provider [phone] Encounter Details Date Type Department Care Team (Late st Contact Info) Description 06/15/2023 Telephone [place] [phone] Niru Mary Social History Tobacco Use Types [...] PM EDT Office Visit Cardiology at [address] [phone] Milagros Hernandez MD [facility] CARDIOLOGY [place] [phone] Scheduled Procedures Name Priority Associated Diagnoses Date/Ti me EGD, UPPER GI ENDOSCOPY (WRV U 2.09) Peptic stricture of esophagus documented as of this encounter Visit Diagnoses Not on filedocumented in this encounter Care Teams Valve Seater Operator Relationship Specialty Start Date End Date Ana Gillespie APRN [address] [place] [address] PCP - General Family Medicine 02/03/19 documented as of this encounter
--- OUTSIDE RECORDS SUMMARY | 2024-02-29 21:26 | XMS_ITS | Encounter Summary ---
Author Organization [facility] [place] [address] Care Team Providers Care Senior Payroll Administrator Name Role Phone Ana Gillespie APRN Primary Care Provider [phone] Encounter Details Date Type Department Care Team [...] PM EDT Office Visit Cardiology at [address] [address] Milagros Hernandez MD [facility] [place] [address] Scheduled Procedures Name Priority Associated Diagnoses Date/Ti me EGD, UPPER GI ENDOSCOPY (WRV U 2.09) Peptic stricture of esophagus documented as of this encounter Visit Diagnoses Not on filedocumented in this encounter Care Teams Senior Payroll Administrator Relationship Specialty Start Date End Date Ana Gillespie APRN [address] [place] [address] PCP - General Family Medicine 02/03/19 documented as of this encounter
--- OUTSIDE RECORDS SUMMARY | 2024-02-29 21:26 | XMS_ITS | Encounter Summary ---
Author Organization [facility] [place] [address] Care Team Providers Care Motorcycle Fabricator Name Role Phone Ana Gillespie VAUGHN Primary Care Provider [phone] Reason for Referral * Diagnostic Test (Routine) - Closed Specialty Diagnoses / Procedures Referred By Esperanza rodríguez Referred To Contact Radiology Diagnoses Problem with gastrostomy tube Farrell's esophagus with high grade dysplasia Farrell's esophagus with low grade dysplasia Procedures IR G-Tube Check/Change Hang Cooper PA [facility] [place] [address] [place] [address] Referral ID Status Reason Start Date Expiration Date V isits Requested Visits Authorized [id number] Closed Specialty Service Requested 09/23/2023 03/25/2025 1 1 * Diagnostic Test (Routine) - Closed Specialty Diagnoses / Procedures Referred By Esperanza rodríguez Referred To Contact Radiology Diagnoses Problem with gastrostomy tube 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 Procedures IR Site Check In Recovery Room Hang Cooper PA [facility] [place] [address] [place] [address] Referral ID Status Reason Start Date Expiration Date V isits Requested Visits Authorized [id number] Closed Specialty Service Requested 09/20/2023 03/22/2025 1 1 Reason for Visit * Diagnostic Test (Routine) - Closed Specialty Diagnoses / Procedures Referred By Esperanza rodríguez Referred To Contact Radiology Diagnoses Problem with gastrostomy tube 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 Procedures IR Site Check In Recovery Room Hang Cooper PA [facility] [place] [address] [facility] [place] [address] Referral ID Status Reason Start Date Expiration Date V isits Requested Visits Authorized [id number] Closed Specialty Service Requested 09/20/2023 03/22/2025 1 1 Encounter Details Date Type Department Care Team (Latest Contact Info) Description 09/23/2023 9:47 AM EDT - 09/23/2023 11:59 PM EDT Hospital [place] [address] Geronimo Chambers, [facility] [address] Problem with gastrostomy tube; Neuroleptic-induced parkinsonism; Farrell's [...] meter kit. 1 each 0 12/14/2014 Insulin [place], Disposable, (BD INSULIN PEN NEEDLE UF MINI) [...] Patient Name: Jennifer Irving : 1960 MR#: [id number] Seen in IR recovery in followup to G-tube issues. Exchanged by IR on 09/16 due to occlusion. [place]ed to [place] where tube could not be flushed. Exchanged [...] daily. 180 tablet 3 Blood Sugar Diagnostic (BlogCN ULTRA TEST) Strip 1 each by Other [...] glucose meter kit. 1 each 0 Insulin [place], Disposable, (BD INSULIN PEN NEEDLE UF MINI) 31 x 3/16 Needle 1 Device by [facility] [...] G-Tube Check/Change 11/27/2022 Hang Cooper PA [facility] INTERVENTIONL RAD IR G-TUBE CHECK/CHANGE 03/10/2023 IR G-Tube Check/Change 03/10/2023 Geronimo Chambers, [facility] RAD IR G-TUBE CHECK/CHANGE 04/06/2023 IR G-Tube Check/Change 04/06/2023 Gavin Carrillo MD [facility] RAD IR G-TUBE CHECK/CHANGE 05/09/2023 IR G-Tube Check/Change [facility] RAD IR G-TUBE CHECK/CHANGE 07/09/2023 IR G-Tube Check/Change [facility] RAD IR G-TUBE CHECK/CHANGE 09/17/2023 IR G-Tube Check/Change 09/17/2023 Hang Cooper PA [facility] RAD IR G-TUBE PLACEMENT 09/11/2022 IR G-Tube Placement 09/11/2022 Moustapha Hart MD [facility] INTERVENTION[facility] RAD IR SUTURE RELEASE 09/25/2022 IR Suture Release 09/25/2022 Yoselin Ghosh PA [facility] INTER[facility] RAD PERCUTANEOUS GASTROSTOMY N/A 09/11/2022 PERCUTANEOUS GASTROSTOMY performed by Aiden Flores MD at [facility] CATY PRO COLONOSCOPY, BIOPSY N/A 03/20/2016 COLONOSCOPY FLEXIBLE, WITH BX performed by aDvid Dejesus MD at [facility] ENDOSCOPY PRO COLONOSCOPY, DIAGNOSTIC N/A 03/01/2020 COLONOSCOPY, DIAGNOSTIC performed by David Dejesus MD at [facility] ENDOSCOPY PRO ENDOSCOPIC US EXAM, ESOPH N/A 03/31/2022 UPPER EUS- ENDOSCOPIC ULTRASOUND performed by David Dejesus MD at [facility] ENDOSCOPY PRO UP GI ENDOSCOPY, BALL [...] (WRVU 2.67) performed by David Dejesus MDat [facility] ENDOSCOPY PRO UP GI ENDOSCOPY, BALL DIL, 30MM N/A 08/02/2023 EGD,WITH DILATION ESOPHAGUS WITH BALLOON,< 30 MM (WRVU 2.67) performed by David Dejesus MDat [facility] ENDOSCOPY PRO UPPER GI ENDOSCOPY, BIOPSY N/A 04/03/2014 UPPER GASTROINTESTINAL ENDOSCOPY,WITH BIOPSY SINGLE OR MULTIPLE performed by David Dejesus MDat [facility] ENDOSCOPY PRO UPPER GI ENDOSCOPY, BIOPSY N/A 03/20/2016 EGD WITH BIOPSY performed by David Dejesus MD at [facility] ENDOSCOPY PRO UPPER GI ENDOSCOPY, BIOPSY N/A 11/22/2018 EGD WITH BIOPSY (WRVU 2.49) performed by David Dejesus MD at [facility] ENDOSCOPY PRO UPPER GI ENDOSCOPY, BIOPSY N/A 03/01/2020 UPPER GASTROINTESTINAL ENDOSCOPY,WITH BIOPSY SINGLE OR MULTIPLE (WRVU 2.49) performed by David Dejesus MD at [facility] ENDOSCOPY PRO UPPER GI ENDOSCOPY, BIOPSY N/A 09/23/2021 EGD WITH BIOPSY (WRVU 2.49) performed by David Dejesus MD at [facility] ENDOSCOPY PRO UPPER GI ENDOSCOPY, BIOPSY N/A 03/31/2022 EGD WITH BIOPSY (WRVU 2.49) performed by David Dejesus MD at [facility] ENDOSCOPY PRO UPPER GI ENDOSCOPY, BIOPSY N/A 07/03/2022 EGD WITH BIOPSY (WRVU 2.49) performed by David Dejesus MD at [facility] ENDOSCOPY PRO UPPER GI ENDOSCOPY, DIAGNOSTIC N/A 04/03/2014 EGD, UPPER GI ENDOSCOPY performed by David Dejesus MD at [facility] ENDOSCOPY PRO UPPER GI ENDOSCOPY, DIAGNOSTIC N/A 03/01/2020 EGD, UPPER GI ENDOSCOPY performed by Dvaid Dejesus MD at [facility] ENDOSCOPY PRO UPPER GI ENDOSCOPY, DIAGNOSTIC N/A 09/09/2022 EGD, UPPER GI ENDOSCOPY (WRVU 2.09) performed by Ayo Russ MD at [facility] MAIN OR Social history and habits: [...] PM EDT Office Visit Cardiology at [address] [address] Milagros Hernandez MD [facility] [place] [address] Scheduled Orders Name Type Priority Associated Diagnoses [...] reports that she was evaluated at [facility] for possible PNA, and the G-tube became [...] 09/16 due to occlusion. Patient traveled to [place] where tube could not be flushed. Exchanged [...] removed over the wire. ??A new 16 [place] balloon retained nonlow-profile gastrostomy tube was then [...] esophagus documented in this encounter Care Teams Motorcycle Fabricator Relationship Specialty Start Date End Date Ana Gillespie APRN [address] [place] [address] PCP - General Family Medicine 02/03/19 documented as of this encounter
--- OUTSIDE RECORDS SUMMARY | 2024-02-29 21:26 | XMS_ITS | Encounter Summary ---
Author Organization [facility] [place] [address] Care Team Providers Care Greenhouse Specialist Name Role Phone Ana Gillespie APRN Primary Care Provider [phone] Encounter Details Date Type Department Care Team (Late st Contact Info) Description 08/02/2023 Orders [place] [phone] David Dejesus MD [facility] [place] [address] Peptic stricture of esophagus Social History Tobacco [...] PM EDT Office Visit Cardiology at [address] [phone] Milagros Hernandez MD [facility] [place] [address] Scheduled Procedures Name Priority Associated Diagnoses Date/Ti me EGD, UPPER GI ENDOSCOPY (WRV U 2.09) Peptic stricture of esophagus documented as of this encounter Visit Diagnoses Diagnosis Peptic stricture of esophagus Stricture and stenosis of esophagus documented in this encounter Care Teams Greenhouse Specialist Relationship Specialty Start Date End Date Ana Gillespie APRN [address] [place] [address] PCP - General Family Medicine 02/03/19 documented as of this encounter
--- OUTSIDE RECORDS SUMMARY | 2024-02-29 21:26 | XMS_ITS | Encounter Summary ---
Author Organization [facility] Address [facility] [place] [address] Care Team Providers Care Saturator Tender Name Role Phone Ana Gillespie APRN Primary Care Provider [phone] Reason for Referral * Consultation (Routine) - Authorized Specialty Diagnoses / Procedures Referred By Esperanza rodríguez Referred To Contact Pulmonology Diagnoses Hypoxemia Ana Gillespie APRN [address] [place] [address] Noe Cuenca MD [facility] [place] [address] Referral ID Status Reason Start Date Expiration Date Visits Requested Visits Authorized [id number] Authorized Consult, Test & Treat PCP Updated and/or Approved 05/27/2023 05/26/2024 6 6 Encounter Details Date Type Department Care Team (Late Contact Info) Description 05/27/2023 Transcribe Orders eD Incoming Referrals [phone] Ana Gillespie APRN [address] [place], [place] [address] Hypoxemia Social History Tobacco Use Types Packs/Day [...] PM EDT Office Visit Cardiology at [address] [address] Milagros Hernandez MD [facility] [place] [address] Scheduled Procedures Name Priority Associated Diagnoses Date/Ti me EGD, UPPER GI ENDOSCOPY (WRV U 2.09) Peptic stricture of esophagus Scheduled Referrals Name Type Priority Associated Diagnoses Order Schedule Referral to Pulmonology Outpatient Referral Routine Hypoxemia Ordered: 05/27/2023 documented as of this encounter Visit Diagnoses Diagnosis Hypoxemia documented in this encounter Care Teams Saturator Tender Relationship Specialty Start Date End Date Ana Gillespie APRN [address] [place] [address] PCP - General Family Medicine 02/03/19 documented as of this encounter
--- OUTSIDE RECORDS SUMMARY | 2024-02-29 21:26 | XMS_ITS | Encounter Summary ---
Author Organization [facility] [place] [address] Care Team Providers Care Building Maintenance Technician Name Role Phone Ana Gillespie VAUGHN Primary Care Provider [phone] Encounter Details Date Type Department Care Team (Late st Contact Info) Description 06/11/2023 Telephone [place] [address] Chiquita James, RN Social History [...] PM EDT Office Visit Cardiology at [address] [phone] Milagros Hernandez MD [facility] [place] [address] Scheduled Procedures Name Priority Associated Diagnoses Date/Ti me EGD, UPPER GI ENDOSCOPY (WRV U 2.09) Peptic stricture of esophagus documented as of this encounter Visit Diagnoses Not on filedocumented in this encounter Care Teams Building Maintenance Technician Relationship Specialty Start Date End Date Ana Gillespie APRN [address] [place] [address] PCP - General Family Medicine 02/03/19 documented as of this encounter
--- OUTSIDE RECORDS SUMMARY | 2024-02-29 21:26 | XMS_ITS | Encounter Summary ---
Author Organization [facility] Address [facility] [address] Care Team Providers Care System Sales Consultant Name Role Phone Ana Gillespie TOOL PROGRAMMER Primary Care Provider [phone] Encounter Details Date Type Department Care Team (Late st Contact Info) Description 09/20/2023 Telephone [place] [address] Juice Maxwell RN Social History [...] placed for pt failed while visiting in [place]. Pt is currently at an Urgent Care in [place] to manage situation. Rogelio is calling [facility] IR to hopefully schedule apt for pt this coming . Forwarded. documented in this encounter Plan of Treatment Upcoming Encounters Date Type Department Care Team (Late st Contact Info) Description 03/10/2024 4:00 PM EDT Office Visit Cardiology at [address] [phone] Milagros Hernandez MD [facility] [place] [address] Scheduled Procedures Name Priority Associated Diagnoses Date/Ti me EGD, UPPER GI ENDOSCOPY (WRV U 2.09) Peptic stricture of esophagus documented as of this encounter Visit Diagnoses Not on filedocumented in this encounter Care Teams System Sales Consultant Relationship Specialty Start Date End Date Ana Gillespie APRN [address] [place] [address] PCP - General Family Medicine 02/03/19 documented as of this encounter
--- OUTSIDE RECORDS SUMMARY | 2024-02-29 21:26 | XMS_ITS | Encounter Summary ---
Author Organization [facility] Address [facility] [place] [address] Care Team Providers Care Respiratory Medicine Physician Name Role Phone Ana Gillespie APRN Primary Care Provider [phone] Encounter Details Date Type Department Care Team (Late st Contact Info) Description 06/01/2023 9:02 AM EST Anesthesia [place] [phone] Kit Dutta MD [facility] [place] [address] Nichelle Dodson MD [facility] [place] [address] Anesthesia Record Procedure Summary Procedure Name Responsible [...] by Sergey Jordan RN PIV 06/01/23; 0836; opyn-wir-eezsim catheter system; 22 gauge, 1 in length; [...] Procedure Summary Date: 06/01/23 Room / Location: [facility] ENDO 2 / [facility] Anesthesia Start: 901 Anesthesia Stop: 951 Procedure: EGD,WITH DILATION ESOPHAGUS WITH BALLOON,< 30 MM (WRVU 2.67) (Trunk) Diagnosis: Peptic stricture of esophagus (repeat petic stricture dilation - please schedule within two weeks) Surgeons: David Dejesus MD Responsible Provider: Kit Dutta MD Anesthesia Type: MAC ASA Status: 3 All Anesthesia Providers: Anesthesiologist: Kit Dutta MD ENGINEERING DOCUMENT CONTROL CLERK: Cristine Gomez CRNA Vitals Value Taken Time BP 107/45 06/01/23 1020 Temp Pulse Resp 18 06/01/23 1020 SpO2 94 % 06/01/23 1021 Pain Level 0 06/01/23 1020 Vitals shown include unfiled device data. Patient Location: PACU/[facility] Level of Consciousness: Conscious but Sleepy [...] IR G-Tube Check/Change 11/27/2022 Hang Cooper, [facility] INTERVENTION[facility] RAD ??? IR G-TUBE CHECK/CHANGE 03/10/2023 IR G-Tube Check/Change 03/10/2023 Geronimo Chambers, [facility] RAD ??? IR G-TUBE [...] GASTROSTOMY performed by Aiden Flores MD at [facility] CATY ??? PRO [...] MM (WRVU 2.67) performed by David Dejesus [employer] [facility] ENDOSCOPY ??? PRO UP GI ENDOSCOPY, BALL DIL, 30MM N/A 01/12/2023 EGD,WITH DILATION ESOPHAGUS WITH BALLOON,< 30 MM (WRVU 2.67) performed by David Dejesus MDat [facility] ENDOSCOPY ??? PRO UP GI ENDOSCOPY, BALL DIL, 30MM N/A 02/26/2023 EGD,WITH DILATION ESOPHAGUS WITH BALLOON,< 30 MM (WRVU 2.67) performed by David Dejesus [facility] ENDOSCOPY ??? PRO UP GI ENDOSCOPY, BALL DIL, 30MM N/A 03/16/2023 EGD,WITH DILATION ESOPHAGUS WITH BALLOON,< 30 MM (WRVU 2.67) performed by David Dejesus [facility] ENDOSCOPY ??? PRO UP GI ENDOSCOPY, BALL DIL, 30MM N/A 03/30/2023 EGD,WITH DILATION ESOPHAGUS WITH BALLOON,< 30 MM (WRVU 2.67) performed by David Dejesus [facility] ENDOSCOPY ??? PRO UP GI ENDOSCOPY, BALL DIL, 30MM N/A 04/30/2023 EGD,WITH DILATION ESOPHAGUS WITH BALLOON,< 30 MM (WRVU 2.67) performed by David Dejesus [facility] ENDOSCOPY ??? PRO UPPER GI ENDOSCOPY, BIOPSY N/A 04/03/2014 UPPER GASTROINTESTINAL ENDOSCOPY,WITH BIOPSY SINGLE OR MULTIPLE performed by David Dejesus [facility] ENDOSCOPY ??? PRO UPPER GI ENDOSCOPY, [...] - Other Informed Consent: Plan discussed with ENGINEERING DOCUMENT CONTROL CLERK. Anesthesia Screening documented in this encounter Plan of Treatment Upcoming Encounters Date Type Department Care Team (Late st Contact Info) Description 03/10/2024 4:00 PM EDT Office Visit Cardiology at [address] [phone] Milagros Hernandez MD [facility] [place] [address] Scheduled Procedures Name Priority Associated Diagnoses Date/Ti [...] mg documented in this encounter Care Teams Respiratory Medicine Physician Relationship Specialty Start Date End Date Ana Gillespie APRN [address] [place] [address] PCP - General Family Medicine 02/03/19 documented as of this encounter
--- OUTSIDE RECORDS SUMMARY | 2024-02-29 21:26 | XMS_ITS | Encounter Summary ---
Author Organization [facility] [address] Care Team Providers Care Management Psychologist Name Role Phone Ana Gillespie [employer] Primary Care Provider [phone] Encounter Details Date Type Department Care Team (Late st Contact Info) Description 08/11/2023 Telephone Gastroenterology at [facility] [place] [address] Parris Maravilla Social History Tobacco Use Types [...] - 08/11/2023 12:09 PM EDT Jennifer Irving [id number] Diagnosis/Indication: shedule one month - peptic stricture [...] your procedure. Who will likely be your warehouse delivery driver for the procedure? *Please Verify [...] PM EDT Office Visit Cardiology at [address] [address] Milagros Hernandez MD [facility] [place] [address] Scheduled Procedures Name Priority Associated Diagnoses Date/Ti me EGD, UPPER GI ENDOSCOPY (WRV U 2.09) Peptic stricture of esophagus documented as of this encounter Visit Diagnoses Not on filedocumented in this encounter Care Teams Management Psychologist Relationship Specialty Start Date End Date Ana Gillespie APRN [address] [place] [address] PCP - General Family Medicine 02/03/19 documented as of this encounter
--- OUTSIDE RECORDS SUMMARY | 2024-02-29 21:26 | XMS_ITS | Encounter Summary ---
Author Organization [facility] Address [facility] [place] [address] Care Team Providers Care Manager Internal Name Role Phone Ana Gillespie APRN Primary Care Provider [phone] Encounter Details Date Type Department Care Team (Late st Contact Info) Description 08/11/2023 Telephone [place] [address] Parris Maravilla Social History Tobacco [...] it can be handled by: [facility] Wood Products Manufacturer documented in this encounter Plan of Treatment Upcoming Encounters Date Type Department Care Team (Late st Contact Info) Description 03/10/2024 4:00 PM EDT Office Visit Cardiology at [address] [phone] Milagros Hernandez MD [facility] [place] [address] Scheduled Procedures Name Priority Associated Diagnoses Date/Ti me EGD, UPPER GI ENDOSCOPY (WRV U 2.09) Peptic stricture of esophagus documented as of this encounter Visit Diagnoses Not on filedocumented in this encounter Care Teams Manager Internal Relationship Specialty Start Date End Date Ana Gillespie APRN [address] [place] [address] PCP - General Family Medicine 02/03/19 documented as of this encounter
--- OUTSIDE RECORDS SUMMARY | 2024-02-29 21:26 | XMS_ITS | Encounter Summary ---
Author Organization [facility] [place] [address] Care Team Providers Care Product Safety And Standards Engineer Name Role Phone Jose Miguel Ana MENDES Primary Care Provider [phone] Encounter Details Date Type Department Care Team (Late st Contact Info) Description 07/12/2023 Telephone Cardiology at [address] [phone] Chiquis Jean, RN Social History Tobacco Use [...] 07/12/2023 10:29 AM EST TC to [employer] in [facility], and spoke with Pharmacist to clarify [...] that the [facility] has been called to Smart [facility]out in [facility]. Reviewing his chart the last DH prescription refill from [facility] Cardiology was 09/24/2022, for 1 tablet 24-26mg, [...] PM EDT Office Visit Cardiology at [address] [address] Milagros Hernandez MD [facility] [address] Scheduled Procedures Name Priority Associated Diagnoses Date/Ti me EGD, UPPER GI ENDOSCOPY (WRV U 2.09) Peptic stricture of esophagus documented as of this encounter Visit Diagnoses Not on filedocumented in this encounter Care Teams Product Safety And Standards Engineer Relationship Specialty Start Date End Date Ana Gillespie APRN [address] [place] [address] PCP - General Family Medicine 02/03/19 documented as of this encounter
--- OUTSIDE RECORDS SUMMARY | 2024-02-29 21:26 | XMS_ITS | Encounter Summary ---
Author Organization [facility] Address [facility] [place] [address] Care Team Providers Care Fire Department Marine Engineer Name Role Phone Ana Gillespie FLOOR COVERING CONTRACTOR Primary Care Provider [phone] Encounter Details Date Type Department Care Team (Late st Contact Info) Description 05/25/2023 Telephone [place] [address] Chiquita James, RN Social [...] PM EDT Office Visit Cardiology at [address] [phone] Milagros Hernandez MD [facility] [place] [address] Scheduled Procedures Name Priority Associated Diagnoses Date/Ti me EGD, UPPER GI ENDOSCOPY (WRV U 2.09) Peptic stricture of esophagus documented as of this encounter Visit Diagnoses Not on filedocumented in this encounter Care Teams Fire Department Marine Engineer Relationship Specialty Start Date End Date Ana Gillespie APRN [address] [place] [address] PCP - General Family Medicine 02/03/19 documented as of this encounter
--- OUTSIDE RECORDS SUMMARY | 2024-02-29 21:26 | XMS_ITS | Encounter Summary ---
Author Organization [facility] [place] [address] Care Team Providers Care Electric Motor Repairman Name Role Phone Ana Gillespie DOOR FRAMER Primary Care Provider [phone] Encounter Details Date Type Department Care Team (Late st Contact Info) Description 09/02/2023 [place]phone [place] [address] Parris Maravilla Social History Tobacco [...] returned, it can be handled by: Endo Route Returner please park to me documented in this encounter Plan of Treatment Upcoming Encounters Date Type Department Care Team (Late st Contact Info) Description 03/10/2024 4:00 PM EDT Office Visit Cardiology at [address] [phone] Milagros Hernandez MD [facility] [address] Scheduled Procedures Name Priority Associated Diagnoses Date/Ti me EGD, UPPER GI ENDOSCOPY (WRV U 2.09) Peptic stricture of esophagus documented as of this encounter Visit Diagnoses Not on filedocumented in this encounter Care Teams Electric Motor Repairman Relationship Specialty Start Date End Date Ana Gillespie APRN [address] [place] [address] PCP - General Family Medicine 02/03/19 documented as of this encounter
--- OUTSIDE RECORDS SUMMARY | 2024-02-29 21:26 | XMS_ITS | Encounter Summary ---
Author Organization [facility] Address [facility] [place] [address] Care Team Providers Care Hand Iii Cutter Name Role Phone Ana Gillespie VAUGHN Primary Care Provider [phone] Encounter Details Date Type Department Care Team (Latest Contact Info) Description 06/01/2023 7:00 AM EST - 06/01/2023 10:36 AM EST Hospital Encounter Gastroenterology at [facility] [place] [address] David Dejesus MD [facility] [place] [address] Discharge Disposition: Home Social History Tobacco Use [...] the day after the procedure, use an gbup-qxa-jculnnx spray to numb your throat. Sucking on [...] occurs, please contact your Doctor. Please call [phone] before 8pm Mon-Fri with problems, questions or concerns. If you call after 8pm or on weekends, call the Hospital at [phone] and ask to speak to the Web Developer instructional technology facilitator and the subsurface augmentee operator will contact that person for you. When should you call for help? Call [phone] anytime you think you may need emergency [...] Where can you learn more? [facility] View your After Visit Summary and more online at [email or web address] If you would like to provide feedback about your hospital experience, please call the Office of Patient and Family Relations at . If you have received this After Visit Summary in error, please immediately return it in person to the department, or notify the [facility] Privacy Office by calling toll free at between the hours of 8AM and 5PM to arrange for our retrieval of the documents at no cost to you. Content Version: 12.2 ?? 9943-2828 swabr. Care instructions adapted under license by [facility]. If you have questions about a medical condition or this instruction, always ask your healthcare professional. swabr disclaims any warranty or liability for your [...] meter kit. 1 each 0 12/14/2014 Insulin [place], Disposable, (BD INSULIN PEN NEEDLE UF MINI) [...] glucose meter kit. 1 each 0 Insulin [place], Disposable, (BD INSULIN PEN NEEDLE UF MINI) 31 x 3/16 Needle 1 Device by [facility] [...] Dejesus MD - 06/01/2023 9:15 AM EST [facility] Operative Note Patient Name: Jennifer Irving : [id number] MR#: [id number] Case Date: 06/01/2023 This note was entered in error documented in this encounter Plan of Treatment Upcoming Encounters Date Type Department Care Team (Late st Contact Info) Description 03/10/2024 4:00 PM EDT Office Visit Cardiology at [address] [phone] Milagros Hernandez MD [facility] [address] Scheduled Procedures Name Priority Associated Diagnoses Date/Ti mi EGD, UPPER GI ENDOSCOPY (WRV U 2.09) Peptic stricture of esophagus documented as of this encounter Procedures Procedure Name Priority Date/Time Associated Diagnosis Comments Up Gi Endoscopy, Ball Dil, 30Mm (89595) 06/01/2023 9:06 AM EST Peptic stricture of esophagus UPPER GI ENDOSCOPY Routine 06/01/2023 8: 54 AM EST POCT GLUCOSE Routine 06/01/2023 8:32 AM EST documented in this encounter Results * UPPER GI ENDOSCOPY (06/01/2023 8:54 AM EST) Pathologist [facility] UPPER GI ENDOSCOPY [facility] Endoscopy Procedure Date: 06/01/2023 8:54 AM ? Patient Name: Jennifer Irving ? Date of : 1960 ? Age: 62 ? Order #: [id number] ? Instrument Name: [id number] ? Procedure: ? Upper GI endoscopy Indications: [...] Procedure Code(s): ? --- Professional --- ? 27912, Esophagogastroduod enoscopy, ? flexible, transoral; diagnostic, ? including collection of specimen(s) ? by brushing or washing, when ? performed (separate procedure) CPT copyright 2022 [employer]. All rights reserved. The codes documented in this report are preliminary and upon university intern review may be revised to meet current [...] Glucose, POC 102 65 - 199 mg/dL [facility] Comment: Supplemental ranges: <140 mg/dL before meals <180 mg/dL all other times of the day Blood 06/01/2023 8:32 AM EST 06/01/2023 8:32 AM EST David Dejesus MD POINT OF CARE TEST ORDERABLES Performing Organization Address City/[facility] Co de Phone Number [facility] [place] [address] documented in this encounter Visit Diagnoses Not [...] RN) documented in this encounter Care Teams Hand Iii Cutter Relationship Specialty Start Date End Date Ana Gillespie APRN [address] [place] [address] PCP - General Family Medicine 02/03/19 documented as of this encounter
--- OUTSIDE RECORDS SUMMARY | 2024-02-29 21:26 | XMS_ITS | Encounter Summary ---
Author Organization [facility] Address [facility] [place] [address] Care Team Providers Care Information Services Manager Name Role Phone Ana Gillespie VAUGHN Primary Care Provider [phone] Encounter Details Date Type Department Care Team (Late st Contact Info) Description 06/01/2023 9:00 AM EST - 06/01/2023 9:45 AM EST Surgery Gastroenterology at [facility] [place] [address] David Dejesus MD [facility] [place] [address] EGD,WITH DILATION ESOPHAGUS WITH BALLOON,< 30 MM [...] the day after the procedure, use an datm-xim-emarlyf spray to numb your throat. Sucking on [...] occurs, please contact your Doctor. Please call [phone] before 8pm Mon-Fri with problems, questions or concerns. If you call after 8pm or on weekends, call the Hospital at [phone] and ask to speak to the Databases Computer Consultant design and sales consultant and the terminal system operator will contact that person for you. When should you call for help? Call [phone] anytime you think you may need emergency [...] any problems. Where can you learn more? [facility] View your After Visit Summary and more online at [email or web address] If you would like to provide feedback about your hospital experience, please call the Office of Patient and Family Relations at . If you have received this After Visit Summary in error, please immediately return it in person to the department, or notify the [facility] Privacy Office by calling toll free at between the hours of 8AM and 5PM to arrange for our retrieval of the documents at no cost to you. Content Version: 12.2 ?? 8424-3857 octoScope. Care instructions adapted under license by [facility]. If you have questions about a medical condition or this instruction, always ask your healthcare professional. octoScope disclaims any warranty or liability for your [...] meter kit. 1 each 0 12/14/2014 Insulin [place], Disposable, (BD INSULIN PEN NEEDLE UF MINI) 31 x 07/23 NeedleIndications:Di abetes mellitus type 2, uncontrolled 1 Device by [facility]Non-Drug; Combo Route) route 3 times daily as [...] glucose meter kit. 1 each 0 Insulin [place], Disposable, (BD INSULIN PEN NEEDLE UF MINI) 31 x 3/16 Needle 1 Device by [facility].(Non-Drug; Combo Route) route 3 times daily as [...] Dejesus MD - 06/01/2023 9:15 AM EST [facility] Operative Note Patient Name: Jennifer Irving : [id number] MR#: [id number] Case Date: 06/01/2023 This note was entered in error documented in this encounter Plan of Treatment Upcoming Encounters Date Type Department Care Team (Late st Contact Info) Description 03/10/2024 4:00 PM EDT Office Visit Cardiology at [address] [address] Milagros Hernandez MD [facility] [place] [address] Scheduled Procedures Name Priority Associated Diagnoses Date/Ti me EGD, UPPER GI ENDOSCOPY (WRV U 2.09) Peptic stricture of esophagus documented as of this encounter Procedures Procedure Name Priority Date/Time Associated Diagnosis Comments Up Gi Endoscopy, Ball Dil, 30Mm ([id number]) 06/01/2023 9:06 AM EST Peptic stricture of esophagus UPPER GI ENDOSCOPY Routine 06/01/2023 8: 54 AM EST POCT GLUCOSE Routine 06/01/2023 8:32 AM EST documented in this encounter Results * UPPER GI ENDOSCOPY (06/01/2023 8:54 AM EST) Pathologist [facility] UPPER GI ENDOSCOPY [facility] Endoscopy Procedure Date: 06/01/2023 8:54 AM ? Patient Name: Jennifer Irving ? Date of : 1960 ? Age: 62 ? Order #: [id number] ? Instrument Name: [id number] ? Procedure: ? Upper GI endoscopy Indications: ? Stricture dilation Providers: ? David Dejesus MD, Gaby ? Rylee, Kenna aBrbosa Referring : ?Ana Gillespie Medicines: ? General [...] Procedure Code(s): ? --- Professional --- ? 69289, Esophagogastroduod enoscopy, ? flexible, transoral; diagnostic, ? including collection of specimen(s) ? by brushing or washing, when ? performed (separate procedure) CPT copyright 2022 [employer]. All rights reserved. The codes documented in this report are preliminary and upon dosier operator review may be revised to meet current compliance requirements. Attending Participation: ? I personally performed the entire procedure. ? ___ David Dejesus MD 06/01/2023 9:37:18 AM This report has been signed electronically. Number of Addenda: 0 Note Initiated On: 06/01/2023 8:54 AM PROVATION 06/01/2023 8:54 AM EST Ana Gillespie REPRODUCTION TECHNICIAN GENERAL SURGICAL ORD ERABLES Performing Organization Address [facility] Co de Phone Number PROVATION * POCT Glucose (06/01/2023 8:32 AM EST) Glucose, POC 102 65 - 199 mg/dL [facility] Comment: Supplemental ranges: <140 mg/dL before meals <180 mg/dL all other times of the day Blood 06/01/2023 8:32 AM EST 06/01/2023 8:32 AM EST David Dejesus MD POINT OF CARE TEST ORDERABLES Performing Organization Address [facility] Co de Phone Number [facility] [place] [address] documented in this encounter Visit Diagnoses Diagnosis [...] 1025, Endoscopy (Day of Procedure) 0837 ([facility] ider: Mary Peace RN) documented in this encounter Care Teams Information Services Manager Relationship Specialty Start Date End Date Ana Gillespie APRN [address] [place] [address] PCP - General Family Medicine 02/03/19 documented as of this encounter
--- OUTSIDE RECORDS SUMMARY | 2024-02-29 21:26 | XMS_ITS | Encounter Summary ---
[place] [address] Care Team Providers Care Instrument Repair Supervisor Name Role Phone Ana Gillespie VAUGHN Primary Care Provider [phone] Reason for Referral * Diagnostic Test (Routine) - Closed Specialty Diagnoses / Procedures Referred By Esperanza rodríguez Referred To Contact Radiology Diagnoses Problem with gastrostomy tube Procedures IR Site Check In Recovery Room Fannie Conde PA [facility] [place] [address] [facility] [place] [address] Referral ID Status Reason Start Date Expiration Date V isits Requested Visits Authorized [id number] Closed Specialty Service Requested 09/17/2023 03/19/2025 1 1 Reason for Visit * Diagnostic Test (Routine) - Closed Specialty Diagnoses / Procedures Referred By Esperanza rodríguez Referred To Contact Radiology Diagnoses Problem with gastrostomy tube Procedures IR Site Check In Recovery Room Fannie Conde PA [facility] [place] [address] [facility] [place] [address] Referral ID Status Reason Start Date Expiration Date V isits Requested Visits Authorized [id number] Closed Specialty Service Requested 09/17/2023 03/19/2025 1 1 Encounter Details Date Type Department Care Team (Latest Contact Info) Description 09/17/2023 11:00 AM EDT - 09/17/2023 11:54 AM EDT Hospital En[place] [phone] Geronimo Chambers, [facility] [place] [address] Problem with gastrostomy tube Discharge Disposition: Home [...] 180 tablet 3 10/20/2021 Blood Sugar Diagnostic (Ulympix ULTRA TEST) StripIndications:Type 2 diabetes mellitus, uncontrolled [...] kit. 1 each 0 12/14/2014 Insulin [place], Disposable, (BD INSULIN PEN NEEDLE UF MINI) 31 x 3/16 NeedleIndications:Josefina betes mellitus type 2, uncontrolled 1 Device by [place].(Non-Drug; Combo Route) route 3 times daily as needed. 100 each 11 12/13/2014 documented as of this encounter Plan of Treatment Upcoming Encounters Date Type Department Care Team (Late st Contact Info) Description 03/10/2024 4:00 PM EDT Office Visit Cardiology at [address] [address] Milagros Hernandez MD [facility] [place] [address] Scheduled Procedures Name Priority Associated Diagnoses Date/Ti [...] Recovery Room (09/17/2023 1:00 PM EDT) Narrative [facility] - 09/17/2023 1:00 PM EDT This exam is auto-finalizing. No interpretation was done. Geronimo [place] IR ORDERABLES [place], [place] * IR G-Tube Check/Change (09/17/2023 12:51 [...] external disk positioned at 4 cm marker. winding operator: Hang Cooper PA-C Attending of record: Geronimo Chambers DO. I was not present. ?? 09/17/2023 Geronimo Chambers DO IMG IR ORDERABLES documented in this encounter Visit Diagnoses Diagnosis Problem with gastrostomy tube documented in this encounter Care Teams Instrument Repair Supervisor Relationship Specialty Start Date End Date Ana Gillespie APRN [address] [place] [address] PCP - General Family Medicine 02/03/19 documented as of this encounter
--- OUTSIDE RECORDS SUMMARY | 2024-02-29 21:26 | XMS_ITS | Encounter Summary ---
Author Organization [place] [address] Care Team Providers Care Dredge Pipeman Name Role Phone Ana Gillespie APRN Primary Care Provider [phone] Encounter Details Date Type Department Care Team (Late st Contact Info) Description 07/06/2023 Telephone Cardiology at [address] [phone] Chiquis Jean, RN Social History Tobacco Use [...] message stating Mrs Irving was admitted to [facility] over this past weekend. He states an [...] PM EDT Office Visit Cardiology at [address] [address] Milagros Hernandez MD [facility] [place] [address] Scheduled Procedures Name Priority Associated Diagnoses Date/Ti me EGD, UPPER GI ENDOSCOPY (WRV U 2.09) Peptic stricture of esophagus documented as of this encounter Visit Diagnoses Not on filedocumented in this encounter Care Teams Dredge Pipeman Relationship Specialty Start Date End Date Ana Gillespie APRN [address] [place] [address] PCP - General Family Medicine 02/03/19 documented as of this encounter
--- OUTSIDE RECORDS SUMMARY | 2024-02-29 21:26 | XMS_ITS | Encounter Summary ---
Author Organization [facility] [place] [address] Care Team Providers Care Veneer Jointer Offbearer Name Role Phone Ana Gillespie VAUGHN Primary Care Provider [phone] Reason for Referral * Diagnostic Test (Routine) - Closed Specialty Diagnoses / Procedures Referred By Esperanza rodríguez Referred To Contact Radiology Diagnoses Neuroleptic-induced parkinsonism Procedures IR G-Tube Check/Change Fannie Conde PA [facility] [place] [address] [place] [address] Referral ID Status Reason Start Date Expiration Date V isits Requested Visits Authorized [id number] Closed Specialty Service Requested 07/06/2023 01/03/2025 1 1 Encounter Details Date Type Department Care Team (Late st Contact Info) Description 07/06/2023 Notes [place] [address] Fannie Conde PA [facility] [place] [address] Social History Tobacco Use Types Packs/Day Years [...] catheter with tube feeds, who presents to [facility] Radiology to undergo check/exchange of G-tube. Patient's reports that she was evaluated at [facility] for possible PNA, and the G-tube became [...] glucose meter kit. 1 each 0 Insulin [place], Disposable, (BD INSULIN PEN NEEDLE UF MINI) [...] IR G-Tube Check/Change 11/27/2022 Hang Cooper PA [facility] INTERVENTIONL RAD IR G-TUBE CHECK/CHANGE 03/10/2023 IR G-Tube Check/Change 03/10/2023 Geronimo Chambers DO [facility] INTER[facility] RAD IR G-TUBE CHECK/CHANGE 04/06/2023 IR G-Tube Check/Change 04/06/2023 Gavin Carrillo MD [facility] INTER[facility] RAD IR G-TUBE CHECK/CHANGE 05/09/2023 IR G-Tube Check/Change [facility] RAD IR G-TUBE PLACEMENT 09/11/2022 IR G-Tube Placement 09/11/2022 Moustapha Hart MD [facility] INTER[facility] RAD IR SUTURE RELEASE 09/25/2022 IR Suture Release 09/25/2022 Yoselin Ghosh PA [facility] INTERVENTION[facility] RAD PERCUTANEOUS GASTROSTOMY N/A 09/11/2022 PERCUTANEOUS GASTROSTOMY performed by Aiden Flores MD at [facility] CATY PRO COLONOSCOPY, BIOPSY N/A 03/20/2016 COLONOSCOPY FLEXIBLE, WITH BX performed by David Dejesus MD at [facility] ENDOSCOPY PRO COLONOSCOPY, DIAGNOSTIC N/A 03/01/2020 COLONOSCOPY, DIAGNOSTIC performed by David Dejesus MD at [facility] ENDOSCOPY PRO ENDOSCOPIC US EXAM, ESOPH N/A 03/31/2022 UPPER EUS- ENDOSCOPIC ULTRASOUND performed by David Dejesus MD at [facility] ENDOSCOPY PRO UP GI ENDOSCOPY, BALL DIL, 30MM N/A 12/24/2022 EGD,WITH DILATION ESOPHAGUS WITH BALLOON,< 30 MM (WRVU 2.67) performed by David Dejesus MDat [facility] ENDOSCOPY PRO UP GI ENDOSCOPY, BALL DIL, 30MM N/A 01/12/2023 EGD,WITH DILATION ESOPHAGUS WITH BALLOON,< 30 MM (WRVU 2.67) performed by David Dejesus [facility] ENDOSCOPY PRO UP GI ENDOSCOPY, BALL DIL, 30MM N/A 02/26/2023 EGD,WITH DILATION ESOPHAGUS WITH BALLOON,< 30 MM (WRVU 2.67) performed by David Dejesus [facility] ENDOSCOPY PRO UP GI ENDOSCOPY, BALL DIL, 30MM N/A 03/16/2023 EGD,WITH DILATION ESOPHAGUS WITH BALLOON,< 30 MM (WRVU 2.67) performed by David Dejesus [facility] ENDOSCOPY PRO UP GI ENDOSCOPY, BALL DIL, 30MM N/A 03/30/2023 EGD,WITH DILATION ESOPHAGUS WITH BALLOON,< 30 MM (WRVU 2.67) performed by David Dejesus [facility] ENDOSCOPY PRO UP GI ENDOSCOPY, BALL DIL, 30MM N/A 04/30/2023 EGD,WITH DILATION ESOPHAGUS WITH BALLOON,< 30 MM (WRVU 2.67) performed by David Dejesus [facility] ENDOSCOPY PRO UP GI ENDOSCOPY, BALL DIL, 30MM N/A 06/01/2023 EGD,WITH DILATION ESOPHAGUS WITH BALLOON,< 30 MM (WRVU 2.67) performed by David Dejesus [facility] ENDOSCOPY PRO UPPER GI ENDOSCOPY, BIOPSY N/A 04/03/2014 UPPER GASTROINTESTINAL ENDOSCOPY,WITH BIOPSY SINGLE OR MULTIPLE performed by David Dejesus [facility] ENDOSCOPY PRO UPPER GI ENDOSCOPY, BIOPSY N/A 03/20/2016 EGD WITH BIOPSY performed by David Dejesus MD at [facility] ENDOSCOPY PRO UPPER GI ENDOSCOPY, BIOPSY N/A 11/22/2018 EGD WITH BIOPSY (WRVU 2.49) performed by David Dejesus MD at [facility] ENDOSCOPY PRO UPPER GI ENDOSCOPY, BIOPSY N/A 03/01/2020 UPPER GASTROINTESTINAL ENDOSCOPY,WITH BIOPSY SINGLE OR MULTIPLE (WRVU 2.49) performed by David Dejesus MD at [facility] ENDOSCOPY PRO UPPER GI ENDOSCOPY, BIOPSY N/A 09/23/2021 EGD WITH BIOPSY (WRVU 2.49) performed by David Dejesus MD at [facility] ENDOSCOPY PRO UPPER GI ENDOSCOPY, BIOPSY N/A 03/31/2022 EGD WITH BIOPSY (WRVU 2.49) performed by David Dejesus MD at [facility] ENDOSCOPY PRO UPPER GI ENDOSCOPY, BIOPSY N/A 07/03/2022 EGD WITH BIOPSY (WRVU 2.49) performed by David Dejesus MD at [facility] ENDOSCOPY PRO UPPER GI ENDOSCOPY, DIAGNOSTIC N/A 04/03/2014 EGD, UPPER GI ENDOSCOPY performed by David Dejesus MD at [facility] ENDOSCOPY PRO UPPER GI ENDOSCOPY, DIAGNOSTIC N/A 03/01/2020 EGD, UPPER GI ENDOSCOPY performed by David Dejesus MD at [facility] ENDOSCOPY PRO UPPER GI ENDOSCOPY, DIAGNOSTIC N/A 09/09/2022 EGD, UPPER GI ENDOSCOPY (WRVU 2.09) performed by Ayo Russ MD at [facility] MAIN OR Social History and Habits: [...] PM EDT Office Visit Cardiology at [address] [address] Milagros Hernandez MD [facility] [place] [address] Scheduled Procedures Name Priority Associated Diagnoses Date/Ti md EGD, UPPER GI ENDOSCOPY (WRV U 2.09) [...] procedure was performed under fluoroscopic guidance. ??A aircraft structural repair mechanic fluoroscopic image was obtained. ??Contrast was injected through the gastrostomy catheter and another fluoroscopic image was obtained. ??Through the catheter, an 0.035 Amplatz wire was advanced. ??The catheter was removed. ??Over the wire, a new 16-Fr rtq-rej-epubfxb (ESTRELLITA) gastrostomy catheter was advanced. ??The retention [...] freely than typical. Exchange for new 16-Fr dff-fbm-gjyhauu (ESTRELLITA) gastrostomy catheter within the stomach; retention [...] Parkinsonism documented in this encounter Care Teams Veneer Jointer Offbearer Relationship Specialty Start Date End Date Ana Gillespie APRN [address] [place] [address] PCP - General Family Medicine 02/03/19 documented as of this encounter
--- OUTSIDE RECORDS SUMMARY | 2024-02-29 21:26 | XMS_ITS | Encounter Summary ---
Author Organization [facility] [place] [address] Care Team Providers Care Research Methods Instructor Name Role Phone Ana Gillespie VAUGHN Primary Care Provider [phone] Encounter Details Date Type Department Care Team (Late st Contact Info) Description 09/08/2023 Telephone [place] [phone] Parris Maravilla Social History Tobacco Use Types [...] returned, it can be handled by: Endo Ent Surgeon please park to me documented in this encounter Plan of Treatment Upcoming Encounters Date Type Department Care Team (Late st Contact Info) Description 03/10/2024 4:00 PM EDT Office Visit Cardiology at [address] [address] Milagros Hernandez MD [facility] [place] [address] Scheduled Procedures Name Priority Associated Diagnoses Date/Ti me EGD, UPPER GI ENDOSCOPY (WRV U 2.09) Peptic stricture of esophagus documented as of this encounter Visit Diagnoses Not on filedocumented in this encounter Care Teams Research Methods Instructor Relationship Specialty Start Date End Date Ana Gillespie APRN [address] [place] [address] PCP - General Family Medicine 02/03/19 documented as of this encounter
--- OUTSIDE RECORDS SUMMARY | 2024-02-29 21:26 | XMS_ITS | Encounter Summary ---
Author Organization [facility] Address [facility] [place] [address] Care Team Providers Care Inspector Set Up And Lay Out Name Role Phone Ana Gillespie APRN Primary Care Provider [phone] Reason for Visit * Reason Onset Date Comments Medication Refill 07/12/2023 Encounter Details Date Type Department Care Team (Late st Contact Info) Description 07/12/2023 Refill Cardiology at [address] [phone] Milagros Hernandez MD [facility] [place] [address] Medication Refill Social History Tobacco Use Types [...] PM EDT Office Visit Cardiology at [address] [address] Milagros Hernandez MD [facility] [place] [address] Scheduled Procedures Name Priority Associated Diagnoses Date/Ti me EGD, UPPER GI ENDOSCOPY (WRV U 2.09) Peptic stricture of esophagus documented as of this encounter Visit Diagnoses Diagnosis HFrEF (heart failure with reduced ejection fraction) documented in this encounter Care Teams Inspector Set Up And Lay Out Relationship Specialty Start Date End Date Ana Gillespie APRN [address] [place] [address] PCP - General Family Medicine 02/03/19 documented as of this encounter
--- OUTSIDE RECORDS SUMMARY | 2024-02-29 21:26 | XMS_ITS | Encounter Summary ---
Author Organization [facility] [place] [address] Care Team Providers Care Machine Shop Lead Man Name Role Phone Ana Gillespie VAUGHN Primary Care Provider [phone] Encounter Details Date Type Department Care Team (Latest Contact Info) Description 09/17/2023 11:55 AM EDT - 09/17/2023 11:59 PM EDT Hospital [place] [phone] Geronimo Chambers, [facility] [place] [address] Discharge Disposition: Home Social History Tobacco Use [...] kit. 1 each 0 12/14/2014 Insulin [place], Disposable, (BD INSULIN PEN NEEDLE UF MINI) 31 x 07/23 NeedleIndications:Josefina betes mellitus type 2, uncontrolled 1 Device by [facility]Non-Drug; Combo Route) route 3 times daily as needed. 100 each 11 12/13/2014 documented as of this encounter Progress Notes * Jamar Parsons RN - 09/17/2023 12:09 PM EDT ANGIO NURSING DATABASE Name: Jennifer Irving Date of : 1960 AGE: 63 y.o. Address: [address] [address] (home) Mobile: Telephone Information: Referring Provider: Geronimo [...] PM EDT Office Visit Cardiology at [address] [address] Milagros Hernandez MD [facility] [address] Scheduled Procedures Name Priority Associated Diagnoses Date/Ti [...] mLs documented in this encounter Care Teams Machine Shop Lead Man Relationship Specialty Start Date End Date Ana Gillespie APRN [address] [place] [address] PCP - General Family Medicine 02/03/19 documented as of this encounter
--- OUTSIDE RECORDS SUMMARY | 2024-02-29 21:26 | XMS_ITS | Encounter Summary ---
Author Organization [facility] Address [facility] [place] [address] Care Team Providers Care Transfer Table Operator Helper Name Role Phone Ana Gillespie APRN Primary Care Provider [phone] Encounter Details Date Type Department Care Team (Late st Contact Info) Description 07/02/2023 [place] [phone] Zhang Pope MD [facility] [place] [address] Social History Tobacco Use Types Packs/Day Years [...] Referring Provider: Dr. Tae Abrams Patient Location: [facility] Presenting Symptoms per OSH: Jennifer Irving [...] Jan 2023. The patient presented today to [facility] with cough and shortness of breath. The working diagnosis at [facility] is a COPD exacerbation. Cardiology was contacted as the patient's troponin had increased over three hours from 203 to 434. The patient has sharp generalized chest pain that occurs when she coughs but does not have chest pressure. ECG is similar to previous. The patient is on BiPAP and the provider at [facility] plans to admit her locally with [...] had a TTE performed November 2022 at [facility] with LVEF that nearly completely recovered. [...] in the patient condition. Zhang Pope MD University Controller documented in this encounter Plan of Treatment Upcoming Encounters Date Type Department Care Team (Late st Contact Info) Description 03/10/2024 4:00 PM EDT Office Visit Cardiology at [address] [address] Milagros Hernandez MD [facility] [place] [address] Scheduled Procedures Name Priority Associated Diagnoses Date/Ti me EGD, UPPER GI ENDOSCOPY (WRV U 2.09) Peptic stricture of esophagus documented as of this encounter Visit Diagnoses Not on filedocumented in this encounter Care Teams Transfer Table Operator Helper Relationship Specialty Start Date End Date Ana Gillespie APRN [address] [place] [address] PCP - General Family Medicine 02/03/19 documented as of this encounter
--- OUTSIDE RECORDS SUMMARY | 2024-02-29 21:26 | XMS_ITS | Encounter Summary ---
Author Organization [facility] Address [facility] [place] [address] Care Team Providers Care Euclid Operator Name Role Phone Ana Gillespie APRN Primary Care Provider [phone] Encounter Details Date Type Department Care Team (Late st Contact Info) Description 08/25/2023 Telephone [place] [phone] Niru Mary Social History Tobacco Use Types [...] PM EDT Office Visit Cardiology at [address] [phone] Milagros Hernandez MD [facility] [place] [address] Scheduled Procedures Name Priority Associated Diagnoses Date/Ti me EGD, UPPER GI ENDOSCOPY (WRV U 2.09) Peptic stricture of esophagus documented as of this encounter Visit Diagnoses Not on filedocumented in this encounter Care Teams Euclid Operator Relationship Specialty Start Date End Date Ana Gillespie APRN [address] [place] [address] PCP - General Family Medicine 02/03/19 documented as of this encounter
--- OUTSIDE RECORDS SUMMARY | 2024-02-29 21:26 | XMS_ITS | Encounter Summary ---
Author Organization [place] [address] Care Team Providers Care Bridal Gown Fitter Name Role Phone Ana Gillespie VAUGHN Primary Care Provider [phone] Encounter Details Date Type Department Care Team (Late st Contact Info) Description 08/10/2023 [place] [address] Chiquita James, RN Social History [...] PM EDT Office Visit Cardiology at [address] [phone] [facility] [place] [address] Scheduled Procedures Name Priority Associated Diagnoses Date/Ti me EGD, UPPER GI ENDOSCOPY (WRV U 2.09) Peptic stricture of esophagus documented as of this encounter Visit Diagnoses Not on filedocumented in this encounter Care Teams Bridal Gown Fitter Relationship Specialty Start Date End Date Ana Gillespie APRN [address] [place] [address] PCP - General Family Medicine 02/03/19 documented as of this encounter
--- OUTSIDE RECORDS SUMMARY | 2024-02-29 21:26 | XMS_ITS | Encounter Summary ---
Author Organization [facility] Address [facility] [place] [address] Care Team Providers Care Wound Care Specialist Name Role Phone Ana Gillespie APRN Primary Care Provider [phone] Encounter Details Date Type Department Care Team (Late st Contact Info) Description 07/22/2023 [place] [phone] Niru Mary Social History Tobacco Use Types [...] PM EDT Office Visit Cardiology at [address] [phone] Milagros Hernandez MD [facility] CARDIOLOGY [place] [phone] Scheduled Procedures Name Priority Associated Diagnoses Date/Ti me EGD, UPPER GI ENDOSCOPY (WRV U 2.09) Peptic stricture of esophagus documented as of this encounter Visit Diagnoses Not on filedocumented in this encounter Care Teams Wound Care Specialist Relationship Specialty Start Date End Date Ana Gillespie APRN [address] [place] [address] PCP - General Family Medicine 02/03/19 documented as of this encounter
--- OUTSIDE RECORDS SUMMARY | 2024-02-29 21:26 | XMS_ITS | Encounter Summary ---
Author Organization [facility] Address [facility] [place] [address] Care Team Providers Care Pressing Machine Tender Name Role Phone Ana Gillespie APRN Primary Care Provider [phone] Encounter Details Date Type Department Care Team (Late st Contact Info) Description 08/02/2023 11:03 AM EDT Anesthesia [place] [phone] Maddie Hughes MD [facility] [place] [address] Anesthesia Record Procedure Summary Procedure Name Responsible [...] for questions and acknowledgement of understanding claire AIRPORT CLERK 1137 Extubation/LMA Out 1139 an stop data [...] Jordan RN PIV 08/02/23; 1002; 22 gauge; rAley Doan; 08/02/23; 1231 08/02/23 1002 by Gaby [...] Procedure Summary Date: 08/02/23 Room / Location: [facility] ENDO 2 / [facility] ENDOSCOPY Anesthesia Start: 1103 Anesthesia Stop: 1148 Procedure: EGD,WITH DILATION ESOPHAGUS WITH BALLOON,< 30 MM (WRVU 2.67) Diagnosis: 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 Patient Location: PACU/[facility] Level of Consciousness: Awake and [...] IR G-Tube Check/Change 11/27/2022 Hang Cooper, ROSLYN [facility] INTERVENTIONL RAD ??? IR G-TUBE CHECK/CHANGE 03/10/2023 IR G-Tube Check/Change 03/10/2023 Geronimo Chambers, DO [facility] INTERVENTIONL RAD ??? IR G-TUBE CHECK/CHANGE 04/06/2023 IR G-Tube Check/Change 04/06/2023 Gavin Carrillo MD [facility] INTERVENTIONL RAD ??? IR G-TUBE CHECK/CHANGE 05/09/2023 IR G-Tube Check/Change [facility] INTERVENTIONL RAD ??? IR G-TUBE CHECK/CHANGE 07/09/2023 IR G-Tube Check/Change [facility] INTERVENTIONL RAD ??? IR G-TUBE PLACEMENT 09/11/2022 IR G-Tube Placement 09/11/2022 Moustapha Hart MD [facility] INTERVENTIONL RAD ??? IR SUTURE RELEASE 09/25/2022 IR Suture Release 09/25/2022 Yoselin Ghosh PA [facility] INTERVENTIONL [...] MM (WRVU 2.67) performed by David Dejesus [facility] ENDOSCOPY ??? PRO UP GI ENDOSCOPY, BALL DIL, 30MM N/A 01/12/2023 EGD,WITH DILATION ESOPHAGUS WITH BALLOON,< 30 MM (WRVU 2.67) performed by David Dejesus [facility] ENDOSCOPY ??? PRO UP GI ENDOSCOPY, BALL DIL, 30MM N/A 02/26/2023 EGD,WITH DILATION ESOPHAGUS WITH BALLOON,< 30 MM (WRVU 2.67) performed by David Dejesus [facility] ENDOSCOPY ??? PRO UP GI ENDOSCOPY, BALL DIL, 30MM N/A 03/16/2023 EGD,WITH DILATION ESOPHAGUS WITH BALLOON,< 30 MM (WRVU 2.67) performed by David Dejesus [facility] ENDOSCOPY ??? PRO UP GI ENDOSCOPY, BALL DIL, 30MM N/A 03/30/2023 EGD,WITH DILATION ESOPHAGUS WITH BALLOON,< 30 MM (WRVU 2.67) performed by David Dejesus [facility] ENDOSCOPY ??? PRO UP GI ENDOSCOPY, BALL DIL, 30MM N/A 04/30/2023 EGD,WITH DILATION ESOPHAGUS WITH BALLOON,< 30 MM (WRVU 2.67) performed by David Dejesus [facility] ENDOSCOPY ??? PRO UP GI ENDOSCOPY, BALL DIL, 30MM N/A 06/01/2023 EGD,WITH DILATION ESOPHAGUS WITH BALLOON,< 30 MM (WRVU 2.67) performed by David Dejesus [facility] ENDOSCOPY ??? PRO UPPER GI ENDOSCOPY, BIOPSY N/A 04/03/2014 UPPER GASTROINTESTINAL ENDOSCOPY,WITH BIOPSY SINGLE OR MULTIPLE [facility]?? PRO UPPER GI ENDOSCOPY, [...] with patient and spouse. Plan discussed with AIRPORT CLERK and attending. Anesthesia Screening documented in this encounter Plan of Treatment Upcoming Encounters Date Type Department Care Team (Late st Contact Info) Description 03/10/2024 4:00 PM EDT Office Visit Cardiology at [address] [address] Milagros Hernandez MD [facility] [place] [address] Scheduled Procedures Name Priority Associated Diagnoses Date/Ti [...] mg documented in this encounter Care Teams Pressing Machine Tender Relationship Specialty Start Date End Date Ana Gillespie APRN [address] [place] [address] PCP - General Family Medicine 02/03/19 documented as of this encounter
--- OUTSIDE RECORDS SUMMARY | 2024-02-29 21:26 | XMS_ITS | Encounter Summary ---
Author Organization [facility] Address [facility] [place] [address] Care Team Providers Care Systems Security Analyst Name Role Phone Ana Gillespie BATTERY ENGINEER Primary Care Provider [phone] Encounter Details Date Type Department Care Team (Late st Contact Info) Description 08/02/2023 11:00 AM EDT - 08/02/2023 12:00 PM EDT [place] [phone] David Dejesus MD [facility] [place] [address] EGD,WITH DILATION ESOPHAGUS WITH BALLOON,< 30 MM [...] the day after the procedure, use an ycho-aju-nicobnt spray to numb your throat. Sucking on [...] occurs, please contact your Doctor. Please call [phone] before 8pm Mon-Fri with problems, questions or concerns. If you call after 8pm or on weekends, call the Hospital at [phone] and ask to speak to the Ammunition Storage Superintendent concession worker and the data center operator will contact that person for you. [...] Where can you learn more? [facility] View your After Visit Summary and more online at [email or web address] If you would like to provide feedback about your hospital experience, please call the Office of Patient and Family Relations at . If you have received this After Visit Summary in error, please immediately return it in person to the department, or notify the [facility] Privacy Office by calling toll free at between the hours of 8AM and 5PM to arrange for our retrieval of the documents at no cost to you. Content Version: 12.2 ?? 3057-4292 [employer]. Care instructions adapted under license by [employer] [facility]. If you have questions about a medical condition or this instruction, always ask your healthcare professional. [employer] disclaims any warranty or liability for your [...] the day after the procedure, use an wulz-ass-nbakagc spray to numb your throat. Sucking on [...] occurs, please contact your Doctor. Please call [phone] before 8pm Mon-Fri with problems, questions or concerns. If you call after 8pm or on weekends, call the Hospital at [phone] and ask to speak to the Ammunition Storage Superintendent concession worker and the data center operator will contact that person for you. When should you call for help? Call 326 anytime you think you may need emergency [...] Where can you learn more? [facility] View your After Visit Summary and more online at [email or web address] If you would like to provide feedback about your hospital experience, please call the Office of Patient and Family Relations at . If you have received this After Visit Summary in error, please immediately return it in person to the department, or notify the [facility] Privacy Office by calling toll free at between the hours of 8AM and 5PM to arrange for our retrieval of the documents at no cost to you. Content Version: 12.2 ?? 7815-6553 [employer]. Care instructions adapted under license by [facility]. If you have questions about a medical condition or this instruction, always ask your healthcare professional. [employer] disclaims any warranty or liability for your [...] meter kit. 1 each 0 12/14/2014 Insulin [place], Disposable, (BD INSULIN PEN NEEDLE UF MINI) 31 x 07/23 NeedleIndications:Josefina betes mellitus type 2, uncontrolled 1 Device by [facility] [...] PM EDT Office Visit Cardiology at [address] [address] Milagros Hernandez MD [facility] [place] [address] Scheduled Procedures Name Priority Associated Diagnoses Date/Ti in EGD, UPPER GI ENDOSCOPY (WRV U 2.09) Peptic stricture of esophagus documented as of this encounter Procedures Procedure Name Priority Date/Time Associated Diagnosis Comments Up Gi Endoscopy, Ball Dil, 30Mm (12836) 08/02/2023 11:01 AM EDT Peptic stricture of esophagus UPPER GI ENDOSCOPY Routine 08/02/2023 10 :49 AM EDT POCT GLUCOSE Routine 08/02/2023 9:54 AM EDT documented in this encounter Results * UPPER GI ENDOSCOPY (08/02/2023 10:49 AM EDT) [facility] UPPER GI ENDOSCOPY [facility] Endoscopy Procedure Date: 08/02/2023 10:49 AM ? Patient Name: Jennifer Irving ? Date of : 1960 ? Age: 63 ? Order #: [id number] ? Instrument Name: [id number] ? Procedure: ? Upper GI endoscopy Indications: [...] GENERAL SURGICAL ORD ERABLES Performing Organization Address [facility] de Phone Number [employer]OVATION * POCT Glucose (08/02/2023 9:54 AM EDT) Glucose, POC 81 65 - 199 mg/dL [facility] Comment: Supplemental ranges: <140 mg/dL before meals <180 mg/dL all other times of the day Blood 08/02/2023 9:54 AM EDT 08/02/2023 9:54 AM EDT David Dejesus MD POINT OF CARE TEST ORDERABLES Performing Organization Address [facility] Co de Phone Number [facility] [place] [address] documented in this encounter Visit Diagnoses Diagnosis [...] CRNA) documented in this encounter Care Teams Systems Security Analyst Relationship Specialty Start Date End Date Ana Gillespie APRN [address] [place] [address] PCP - General Family Medicine 02/03/19 documented as of this encounter
--- OUTSIDE RECORDS SUMMARY | 2024-02-29 21:26 | XMS_ITS | Encounter Summary ---
Author Organization [facility] [place] [address] Care Team Providers Care Forest Firefighter Name Role Phone Ana Gillespie VAUGHN Primary Care Provider [phone] Encounter Details Date Type Department Care Team (Late st Contact Info) Description 09/02/2023 Telephone [place] [phone] Chiquita James, RN Social History Tobacco Use [...] PM EDT Office Visit Cardiology at [address] [phone] Milagros Hernandez MD [facility] [place] [address] Scheduled Procedures Name Priority Associated Diagnoses Date/Ti me EGD, UPPER GI ENDOSCOPY (WRV U 2.09) Peptic stricture of esophagus documented as of this encounter Visit Diagnoses Not on filedocumented in this encounter Care Teams Forest Firefighter Relationship Specialty Start Date End Date Ana Gillespie APRN [address] [place] [address] PCP - General Family Medicine 02/03/19 documented as of this encounter
--- OUTSIDE RECORDS SUMMARY | 2024-02-29 21:26 | XMS_ITS | Encounter Summary ---
Author Organization [facility] Address [facility] [place] [address] Care Team Providers Care Vacuum Drier Tender Name Role Phone Ana Gillespie VAUGHN Primary Care Provider [phone] Encounter Details Date Type Department Care Team (Latest Contact Info) Description 08/02/2023 8:59 AM EDT - 08/02/2023 12:45 PM EDT Hospital Encounter [place] [phone] David Dejesus MD [facility] [place] [place] [address] Discharge Disposition: Home Social History Tobacco Use [...] the day after the procedure, use an acpn-zgj-swcvfno spray to numb your throat. Sucking on [...] occurs, please contact your Doctor. Please call [phone] before 8pm Mon-Fri with problems, questions or concerns. If you call after 8pm or on weekends, call the Hospital at [phone] and ask to speak to the Tent Finisher distributor publications and the light oil operator will contact that person for you. When should you call for help? Call [phone] anytime you think you may need emergency [...] After Visit Summary and more online at [email or web address] If you would like to provide feedback about your hospital experience, please call the Office of Patient and Family Relations at . If you have received this After Visit Summary in error, please immediately return it in person to the department, or notify the [facility] Privacy Office by calling toll free at between the hours of 8AM and 5PM to arrange for our retrieval of the documents at no cost to you. Content Version: 12.2 ?? [phone] [employer]. Care instructions adapted under license by [email or web address]. If you have questions about a medical condition or this instruction, always ask your healthcare professional. [employer] disclaims any warranty or liability for your [...] the day after the procedure, use an aedl-yri-bwuzhgp spray to numb your throat. Sucking on [...] occurs, please contact your Doctor. Please call [phone] before 8pm Mon-Fri with problems, questions or concerns. If you call after 8pm or on weekends, call the Hospital at [phone] and ask to speak to the Tent Finisher distributor publications and the light oil operator will contact that person for you. When should you call for help? Call [phone] anytime you think you may need emergency [...] After Visit Summary and more online at [email or web address] If you would like to provide feedback about your hospital experience, please call the Office of Patient and Family Relations at . If you have received this After Visit Summary in error, please immediately return it in person to the department, or notify the [facility] Privacy Office by calling toll free at between the hours of 8AM and 5PM to arrange for our retrieval of the documents at no cost to you. Content Version: 12.2 ?? [phone] [employer]el[employer]. Care instructions adapted under license by [facility]. If you have questions about a medical condition or this instruction, always ask your healthcare professional. [employer] disclaims any warranty or liability for your [...] meter kit. 1 each 0 12/14/2014 Insulin [place], Disposable, (BD INSULIN PEN NEEDLE UF MINI) [...] PM EDT Office Visit Cardiology at [address] [address] Milagros Hernandez MD [facility] [address] Scheduled Procedures Name Priority Associated Diagnoses Date/Ti me EGD, UPPER GI ENDOSCOPY (WRV U 2.09) Peptic stricture of esophagus documented as of this encounter Procedures Procedure Name Priority Date/Time Associated Diagnosis Comments Up Gi Endoscopy, Ball Dil, 30Mm (60912) 08/02/2023 11:01 AM EDT Peptic stricture of esophagus UPPER GI ENDOSCOPY Routine 08/02/2023 10 :49 AM EDT POCT GLUCOSE Routine 08/02/2023 9:54 AM EDT documented in this encounter Results * UPPER GI ENDOSCOPY (08/02/2023 10:49 AM EDT) UPPER GI ENDOSCOPY [facility] Endoscopy Procedure Date: 08/02/2023 10:49 AM ? Patient Name: Jennifer Irving ? Date of : 1960 ? Age: 63 ? Order #: [id number] ? Instrument Name: [id number] ? Procedure: ? Upper GI endoscopy Indications: [...] GENERAL SURGICAL ORD ERABLES Performing Organization Address [facility] [[email or web address]] de Phone Number PROVATION * POCT Glucose (08/02/2023 9:54 AM EDT) Glucose, POC 81 65 - 199 mg/dL [facility] Comment: Supplemental ranges: <140 mg/dL before meals <180 mg/dL all other times of the day Blood 08/02/2023 9:54 AM EDT 08/02/2023 9:54 AM EDT David Dejesus MD POINT OF CARE TEST ORDERABLES Performing Organization Address [facility] [[email or web address]] de Phone Number [facility] [place] [address] documented in this encounter Visit Diagnoses Not [...] CRNA) documented in this encounter Care Teams Vacuum Drier Tender Relationship Specialty Start Date End Date Ana Gillespie APRN [address] [place] [address] PCP - General Family Medicine 02/03/19 documented as of this encounter
--- OUTSIDE RECORDS SUMMARY | 2024-02-29 21:26 | XMS_ITS | Encounter Summary ---
Author Organization [facility] [place] [address] Care Team Providers Care Excellence Consultant Name Role Phone Ana Gillespie VAUGHN Primary Care Provider [phone] Encounter Details Date Type Department Care Team (Late st Contact Info) Description 07/28/2023 [place] [phone] Niru Mary Social History Tobacco Use Types [...] - 07/28/2023 5:13 PM EDT Copied from [facility] #[id number]. Topic: Specialty Dept CRMs - Generic Call [...] PM EDT Office Visit Cardiology at [address] [address] Milagros Hernandez MD [facility] [place] [place] [address] Scheduled Procedures Name Priority Associated Diagnoses Date/Ti me EGD, UPPER GI ENDOSCOPY (WRV U 2.09) Peptic stricture of esophagus documented as of this encounter Visit Diagnoses Not on filedocumented in this encounter Care Teams Excellence Consultant Relationship Specialty Start Date End Date Ana Gillespie APRN [address] [place] [address] PCP - General Family Medicine 02/03/19 documented as of this encounter
--- OUTSIDE RECORDS SUMMARY | 2024-02-29 21:26 | XMS_ITS | Encounter Summary ---
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 Procedures IR Site Check In Recovery Room Hang Cooper PA [facility] [place] [address] [facility] [place] [address] Referral ID Status Reason Start Date Expiration Date V isits Requested Visits Authorized [id number] Closed Specialty Service Requested 09/20/2023 03/22/2025 1 1 Encounter Details Date Type Department Care Team (Late st Contact Info) Description 09/20/2023 [place] [address] Hang Cooper PA [facility] [place] [address] Social History Tobacco Use Types [...] PM EDT Office Visit Cardiology at [address] [address] Milagros Hernandez MD [facility] [place] [place] [address] Scheduled Orders Name Type Priority Associated Diagnoses [...] Parkinsonism Farrell's esophagus with high grade dysplasia Afrrell's esophagus documented in this encounter Care Teams Blow Machine Tender Starch Spraying Relationship Specialty Start Date End Date Ana Gillespie APRN [address] [place] [address] PCP - General Family Medicine 02/03/19 documented as of this encounter
--- OUTSIDE RECORDS SUMMARY | 2024-02-29 21:26 | XMS_ITS | Encounter Summary ---
Author Organization [facility] [place] [address] Care Team Providers Care Director Of Sports Medicine Name Role Phone Ana Gillespie APRN Primary Care Provider [phone] Encounter Details Date Type Department Care Team (Late st Contact Info) Description 05/25/2023 Orders [place] [phone] David Dejesus MD [facility] [place] [address] Primary parkinsonism Social History Tobacco Use Types [...] PM EDT Office Visit Cardiology at [address] [address] Milagros Hernandez MD [facility] [place] [address] Scheduled Procedures Name Priority Associated Diagnoses Date/Ti me EGD, UPPER GI ENDOSCOPY (WRV U 2.09) Peptic stricture of esophagus documented as of this encounter Visit Diagnoses Diagnosis Primary parkinsonism Paralysis agitans documented in this encounter Care Teams Director Of Sports Medicine Relationship Specialty Start Date End Date Ana Gillespie APRN [address] [place] [address] PCP - General Family Medicine 02/03/19 documented as of this encounter
--- OUTSIDE RECORDS SUMMARY | 2024-02-29 21:26 | XMS_ITS | Encounter Summary ---
Author Organization [facility] [place] [address] Care Team Providers Care Wrecking Crane Engine Operator Name Role Phone Ana Gillespie APRN Primary Care Provider Encounter Details Date Type Department Care Team (Late st Contact Info) Description 07/04/2023 External Results [place] [phone] Social History Tobacco Use Types Packs/Day Years [...] PM EDT Office Visit Cardiology at [address] [phone] Milagros Hernandez MD [facility] [place] [address] Scheduled Procedures Name Priority Associated Diagnoses Date/Ti [...] on filedocumented in this encounter Care Teams Wrecking Crane Engine Operator Relationship Specialty Start Date End Date Ana Gillespie APRN [address] [place] [address] PCP - General Family Medicine 02/03/19 documented as of this encounter
--- OUTSIDE RECORDS SUMMARY | 2024-02-29 21:26 | XMS_ITS | Encounter Summary ---
Author Organization [facility] [place] [address] Care Team Providers Care Trash Collector Supervisor Name Role Phone Ana Gillespie APRN Primary Care Provider [phone] Encounter Details Date Type Department Care Team (Late st Contact Info) Description 06/01/2023 Orders [place] [phone] David Dejesus MD [facility] [address] Peptic stricture of esophagus Social History Tobacco [...] PM EDT Office Visit Cardiology at [address] [phone] Milagros Hernandez MD [facility] [place] [address] Scheduled Procedures Name Priority Associated Diagnoses Date/Ti me EGD, UPPER GI ENDOSCOPY (WRV U 2.09) Peptic stricture of esophagus documented as of this encounter Visit Diagnoses Diagnosis Peptic stricture of esophagus Stricture and stenosis of esophagus documented in this encounter Care Teams Trash Collector Supervisor Relationship Specialty Start Date End Date Ana Gillespie APRN [address] [place] [address] PCP - General Family Medicine 02/03/19 documented as of this encounter
--- OUTSIDE RECORDS SUMMARY | 2024-02-29 21:26 | XMS_ITS | Encounter Summary ---
[place] [address] Care Team Providers Care Shipping Room Helper Name Role Phone Ana Gillespie VAUGHN Primary Care Provider [phone] Reason for Referral * Diagnostic Test (Routine) - Closed Specialty Diagnoses / Procedures Referred By Contjovani t Referred To Contact Radiology Diagnoses Neuroleptic-induced parkinsonism Procedures IR G-Tube Check/Change BronxFannie merritt PA [facility] [place] [address] [facility] [place] [address] Referral ID Status Reason Start Date Expiration Date V isits Requested Visits Authorized [id number] Closed Specialty Service Requested 07/06/2023 01/03/2025 1 1 Reason for Visit * Diagnostic Test (Routine) - Closed Specialty Diagnoses / Procedures Referred By Contjovani t Referred To Contact Radiology Diagnoses Neuroleptic-induced parkinsonism Procedures IR G-Tube Check/Change BronxFannie merritt PA [facility] [place] [address] [facility] [place] [address] Referral ID Status Reason Start Date Expiration Date V isits Requested Visits Authorized [id number] Closed Specialty Service Requested 07/06/2023 01/03/2025 1 1 Encounter Details Date Type Department Care Team (Latest Contact Info) Description 07/09/2023 12:21 PM EST - 07/09/2023 11:59 PM EST Hospital Encounter Radiology at [facility] [place] [address] Moustapha Hart MD [facility] [place] [address] Neuroleptic-induced parkinsonism Discharge Disposition: Home Social History [...] or its attachments. INTERVENTIONAL RADIOLOGY PHONE NUMBERS [phone] If you have a NON Low profile feeding tube, call with any questions or concerns. During regular office hours call: [phone]. If it is after regular office hours, weekends or holidays, please call [phone] and ask to speak to the Classroom Aide ethylbenzene converter operator for Interventional Radiology. If you have a low profile ???ESTRELLITA-BARLOW?? feeding tube, please call Dejah Stauffer RN for any issues: [phone]. Revised 02/23/19 documented in this encounter Medications [...] meter kit. 1 each 0 12/14/2014 Insulin [place], Disposable, (BD INSULIN PEN NEEDLE UF MINI) [...] of : 1960 AGE: 63 y.o. Address: [address] [address] (home) Mobile: Telephone Information: Referring Provider: Fannie Conde REASON FOR VISIT: Order Questions Answers Where will study be performed? [facility] Radiology [120] Is the patient on [...] PM EDT Office Visit Cardiology at [address] [address] Milagros Hernandez MD [facility] [place] [address] Scheduled Procedures Name Priority Associated Diagnoses Date/Ti [...] procedure was performed under fluoroscopic guidance. ??A theater usher fluoroscopic image was obtained. ??Contrast was injected through the gastrostomy catheter and another fluoroscopic image was obtained. ??Through the catheter, an 0.035 Amplatz wire was advanced. ??The catheter was removed. ??Over the wire, a new 16-Fr fws-tpu-ycarekj (ESTRELLITA) gastrostomy catheter was advanced. ??The retention [...] freely than typical. Exchange for new 16-Fr zfx-szt-awqaevf (ESTRELLITA) gastrostomy catheter within the stomach; retention [...] mLs documented in this encounter Care Teams Shipping Room Helper Relationship Specialty Start Date End Date Ana Gillespie APRN [address] [place], [place] [address] PCP - General Family Medicine 02/03/19 documented as of this encounter
--- OUTSIDE RECORDS SUMMARY | 2024-02-29 21:26 | XMS_ITS | Encounter Summary ---
Author Organization [facility] [place] [facility] [place] [address] Care Team Providers Care Potato Chip Fryer Name Role Phone Ana Gillespie VAUGHN Primary Care Provider [phone] Encounter Details Date Type Department Care Team (Late st Contact Info) Description 05/27/2023 Telephone [place] [phone] Chiquita James, RN Social History Tobacco Use [...] PM EDT Office Visit Cardiology at [address] [phone] Milagros Hernandez MD [facility] [place] [address] Scheduled Procedures Name Priority Associated Diagnoses Date/Ti me EGD, UPPER GI ENDOSCOPY (WRV U 2.09) Peptic stricture of esophagus documented as of this encounter Visit Diagnoses Not on filedocumented in this encounter Care Teams Potato Chip Fryer Relationship Specialty Start Date End Date Ana Gillespie APRN [address] [place] [address] PCP - General Family Medicine 02/03/19 documented as of this encounter
--- OUTSIDE RECORDS SUMMARY | 2024-02-29 21:26 | XMS_ITS | Encounter Summary ---
Author Organization [facility] [place] [address] Care Team Providers Care Candy Spreader Helper Name Role Phone Ana Gillespie APRN Primary Care Provider [phone] Encounter Details Date Type Department Care Team (Late st Contact Info) Description 06/18/2023 Orders [place] [phone] Noe Cuenca MD [facility] [place] [address] Hypoxemia (Primary Dx) Social History Tobacco Use [...] PM EDT Office Visit Cardiology at [address] [phone] Milagros Hernandez MD [facility] [place] [address] Scheduled Procedures Name Priority Associated Diagnoses Date/Ti [...] PFT FEV1/FVC Pre-BD Z-Score -0.14 COMPAS PFT RSU06-60 Actual Pre-BD 1.66 % COMPAS PFT URP96-24 Predicted 1.94 % COMPAS PFT WKU43-74 Pre-BD % of Predicted 86 % COMPAS PFT JOB17-20 Pre-BD Z-Score -0.41 COMPAS PFT DLCO Hb [...] Hypoxemia documented in this encounter Care Teams Candy Spreader Helper Relationship Specialty Start Date End Date Ana Gillespie APRN [address] [place] [address] PCP - General Family Medicine 02/03/19 documented as of this encounter
--- OUTSIDE RECORDS SUMMARY | 2024-02-29 21:26 | XMS_ITS | Encounter Summary ---
Author Organization [facility] Address [facility] [place] [address] Care Team Providers Care Cut Roll Machine Offbearer Name Role Phone Ana Gillespie APRN Primary Care Provider [phone] Encounter Details Date Type Department Care Team (Late st Contact Info) Description 06/18/2023 Telephone [place] [phone] Niru Mary Social History Tobacco Use Types [...] PM EDT Office Visit Cardiology at [address] [phone] Milagros Hernandez MD [facility] CARDIOLOGY [place] [id number] Scheduled Procedures Name Priority Associated Diagnoses Date/Ti me EGD, UPPER GI ENDOSCOPY (WRV U 2.09) Peptic stricture of esophagus documented as of this encounter Visit Diagnoses Not on filedocumented in this encounter Care Teams Cut Roll Machine Offbearer Relationship Specialty Start Date End Date Ana Gillespie APRN [address] [place] [address] PCP - General Family Medicine 02/03/19 documented as of this encounter
--- OUTSIDE RECORDS SUMMARY | 2024-02-29 21:27 | XMS_ITS | Encounter Summary ---
Author Organization [facility] Address [facility] [place] [address] Care Team Providers Care Dogger Name Role Phone Ana Gillespie VAUGHN Primary Care Provider [phone] Encounter Details Date Type Department Care Team (Late st Contact Info) Description 05/08/2023 Notes [place] [phone] Nisha Chavez MD [facility] DR INTERVENTIONAL [place] [address] Social History Tobacco Use Types Packs/Day Years [...] tube was dislodged andcare was sought at [facility]. A barba catheter was placed into the [...] through the barba.He should be able to moss picker a compatible syringe at his closest [...] PM EDT Office Visit Cardiology at [address] [address] Milagros Hernandez MD [facility] [place] [address] Scheduled Procedures Name Priority Associated Diagnoses Date/Ti me EGD, UPPER GI ENDOSCOPY (WRV U 2.09) Peptic stricture of esophagus documented as of this encounter Visit Diagnoses Not on filedocumented in this encounter Care Teams Dogger Relationship Specialty Start Date End Date Ana Gillespie APRN [address] [place] [address] PCP - General Family Medicine 02/03/19 documented as of this encounter
--- OUTSIDE RECORDS SUMMARY | 2024-02-29 21:27 | XMS_ITS | Encounter Summary ---
[place] [address] Care Team Providers Care Topstitcher Zigzag Name Role Phone Ana Gillespie VAUGHN Primary Care Provider [phone] Reason for Referral * Diagnostic Test (Routine) - Closed Specialty Diagnoses / Procedures Referred By Contjovani t Referred To Contact Radiology Diagnoses Farrell's esophagus with high grade dysplasia Gastrostomy tube in place Procedures IR G-Tube Check/Change Steven Harding MD [facility] [place] [address] [place] [address] Referral ID Status Reason Start Date Expiration Date V isits Requested Visits Authorized [id number] Closed Specialty Service Requested 03/09/2023 09/06/2024 1 1 Encounter Details Date Type Department Care Team (Late st Contact Info) Description 03/09/2023 Orders [place] [address] Steven Harding MD [facility] [place] [address] Farrell's esophagus with high grade dysplasia; Gastrostomy [...] at which time a balloon retrained 16 Lao EnFit G-tube was placed. Date/Procedure Meds Given/Comments [...] IR G-Tube Check/Change 11/27/2022 Hang Cooper PA [facility] INTERVENTIONL RAD IR G-TUBE PLACEMENT 09/11/2022 IR G-Tube Placement 09/11/2022 Moustapha Hart MD [facility] INTERVENTIONL RAD IR SUTURE RELEASE 09/25/2022 IR Suture Release 09/25/2022 Yoselin Ghosh PA [facility] INTERVENTIONL RAD PERCUTANEOUS GASTROSTOMY N/A 09/11/2022 PERCUTANEOUS GASTROSTOMY performed by Aiden Flores MD at [facility] CATY PRO COLONOSCOPY, BIOPSY N/A 03/20/2016 COLONOSCOPY FLEXIBLE, WITH BX performed by David Dejesus MD at [facility] ENDOSCOPY PRO COLONOSCOPY, DIAGNOSTIC N/A 03/01/2020 COLONOSCOPY, DIAGNOSTIC performed by David Dejesus MD at [facility] ENDOSCOPY PRO ENDOSCOPIC US EXAM, ESOPH N/A 03/31/2022 UPPER EUS- ENDOSCOPIC ULTRASOUND performed by David Dejesus MD at [facility] ENDOSCOPY PRO UP GI ENDOSCOPY, BALL DIL, 30MM N/A 12/24/2022 EGD,WITH DILATION ESOPHAGUS WITH BALLOON,< 30 MM (WRVU 2.67) [facility] UP GI ENDOSCOPY, BALL DIL, 30MM N/A 01/12/2023 EGD,WITH DILATION ESOPHAGUS WITH BALLOON,< 30 MM (WRVU 2.67) performed by David Dejesus [facility] ENDOSCOPY PRO UP GI ENDOSCOPY, BALL DIL, 30MM N/A 02/26/2023 EGD,WITH DILATION ESOPHAGUS WITH BALLOON,< 30 MM (WRVU 2.67) [facility] ENDOSCOPY PRO UPPER GI ENDOSCOPY, BIOPSY N/A 04/03/2014 UPPER GASTROINTESTINAL ENDOSCOPY,WITH BIOPSY SINGLE OR MULTIPLE performed by David [facility]jesus [facility] ENDOSCOPY PRO UPPER GI ENDOSCOPY, BIOPSY N/A 03/20/2016 EGD WITH BIOPSY performed by David Dejesus MD at [facility] ENDOSCOPY PRO UPPER GI ENDOSCOPY, BIOPSY N/A 11/22/2018 EGD WITH BIOPSY (WRVU 2.49) performed by David Dejesus MD at [facility] ENDOSCOPY PRO UPPER GI ENDOSCOPY, BIOPSY N/A 03/01/2020 UPPER GASTROINTESTINAL ENDOSCOPY,WITH BIOPSY SINGLE OR MULTIPLE (WRVU 2.49) performed by David Dejesus MD at [facility] ENDOSCOPY PRO UPPER GI ENDOSCOPY, BIOPSY N/A 09/23/2021 EGD WITH BIOPSY (WRVU 2.49) performed by David Dejesus MD at [facility] ENDOSCOPY PRO UPPER GI ENDOSCOPY, BIOPSY N/A 03/31/2022 EGD WITH BIOPSY (WRVU 2.49) performed by David Dejesus MD at [facility] ENDOSCOPY PRO UPPER GI ENDOSCOPY, BIOPSY N/A 07/03/2022 EGD WITH BIOPSY (WRVU 2.49) performed by David Dejesus MD at [facility] ENDOSCOPY PRO UPPER GI ENDOSCOPY, DIAGNOSTIC N/A 04/03/2014 EGD, UPPER GI ENDOSCOPY performed by David Dejesus MD at [facility] ENDOSCOPY PRO UPPER GI ENDOSCOPY, DIAGNOSTIC N/A 03/01/2020 EGD, UPPER GI ENDOSCOPY performed by David Dejesus MD at [facility] ENDOSCOPY PRO UPPER GI ENDOSCOPY, DIAGNOSTIC N/A 09/09/2022 EGD, UPPER GI ENDOSCOPY (WRVU 2.09) performed by Ayo Russ MD at [facility] MAIN OR Medications: Current Outpatient Medications [...] (ONE TOUCH DELICA) 33 gauge [facility] 1 each by Other route 3 times daily. by Other route. 1 box= 100 test strips; 3 boxes = 300 test strips. 300 each 3 Blood-Glucose Meter (ONETOUCH ULTRA2) Kit by Other route. 1 = one blood glucose meter kit. 1 each 0 Insulin [place], Disposable, (BD INSULIN PEN NEEDLE UF MINI) 31 x 3/16 Needle 1 Device by [facility] – [...] PM EDT Office Visit Cardiology at [address] [address] Milagros Hernandez MD [facility] [place] [address] Scheduled Procedures Name Priority Associated Diagnoses Date/Ti [...] procedure was performed under fluoroscopic guidance. ??A outboard motorboat rigger fluoroscopic image was obtained. ??Contrast was injected through the gastrostomy catheter and another fluoroscopic image was obtained. ??Through the catheter, an 0.035 Amplatz wire was advanced. ??The catheter was removed. ??Over the wire, a new 16-Fr aau-ack-xndodrw (ESTRELLITA) gastrostomy catheter was advanced. ??The retention [...] gastric lumen. ?? Exchange for new 16-Fr lom-wyv-ebkyxym (ESTRELLITA) catheter positioned within the stomach. ?? [...] place documented in this encounter Care Teams Topstitcher Zigzag Relationship Specialty Start Date End Date Ana Gillespie APRN [address] [place] [address] PCP - General Family Medicine 02/03/19 documented as of this encounter
--- OUTSIDE RECORDS SUMMARY | 2024-02-29 21:27 | XMS_ITS | Encounter Summary ---
Author Organization [facility]ly [facility] [place] [address] Care Team Providers Care Fish Icer Name Role Phone Ana Gillespie APRN Primary Care Provider [phone] Encounter Details Date Type Department Care Team (Latest Contact Info) Description 04/12/2023 9:20 AM EST TH Visit (TeleHealth) Cardiology at [address] [place] [address] Milagros Hernandez MD [facility] [place] [address] Stress-induced cardiomyopathy Social History Tobacco Use Types [...] the original note were not included. [facility] [place] [address] CARDIOLOGY OUTPATIENT NOTE PRIMARY CARE PROVIDER: Ana [...] glucose meter kit. 1 each 0 Insulin [place], Disposable, (BD INSULIN PEN NEEDLE UF MINI) [...] esophagus and esophageal stricture. She established with nc in Cardiology clinic in Jan 2023 and presents today for planned follow up. This visit is a Telehealth Visit as the patient was unable to safely make the visit in person due to inclement weather. The patient was located in [place] at the time of the visit. We [...] stricture dilations and unfortunately was admitted to [facility] at the end of February shortly [...] next visit. Milagros Hernandez MD Cardiovascular Medicine [facility] 04/12/2023 documented in this encounter Plan of Treatment Upcoming Encounters Date Type Department Care Team (Late st Contact Info) Description 03/10/2024 4:00 PM EDT Office Visit Cardiology at [address] [address] Milagros Hernandez MD [facility] [place] [address] Scheduled Procedures Name Priority Associated Diagnoses Date/Ti me EGD, UPPER GI ENDOSCOPY (WRV U 2.09) Peptic stricture of esophagus documented as of this encounter Visit Diagnoses Diagnosis Stress-induced cardiomyopathy Takotsubo syndrome documented in this encounter Care Teams Fish Icer Relationship Specialty Start Date End Date Ana Gillespie APRN [address] [place] [address] PCP - General Family Medicine 02/03/19 documented as of this encounter
--- OUTSIDE RECORDS SUMMARY | 2024-02-29 21:27 | XMS_ITS | Encounter Summary ---
Author Organization [facility] Address [facility] [place] [address] Care Team Providers Care Truck Crane Operator Helper Name Role Phone Ana Gillespie VAUGHN Primary Care Provider [phone] Encounter Details Date Type Department Care Team (Latest Contact Info) Description 03/16/2023 11:29 AM EST - 03/16/2023 2:40 PM EST Hospital Encounter Gastroenterology at [facility] [place] [address] David Dejesus MD [facility] [place] [address] Discharge Disposition: Home Social History Tobacco Use [...] the day after the procedure, use an qavm-lkp-onzvohr spray to numb your throat. Sucking on [...] occurs, please contact your Doctor. Please call [phone] before 8pm Mon-Fri with problems, questions or concerns. If you call after 8pm or on weekends, call the Hospital at [phone] and ask to speak to the Logging Contractor nutrition aides teacher and the power plant operator apprentice will contact that person for you. When should you call for help? Call [phone] anytime you think you may need emergency [...] more? Visit our health information library at [email or web address] You can also view health information on Sp[employer]aker, your personal patient account. Log in or sign uptoday. Enter J014 in the search box to learn more about Esophageal Dilation: What to Expect at Home. Current as of: December 18, 2018Content Version: 12.4 ?? [id number] [employer]. Care instructions adapted under license by [facility]. If you have questions about a medical condition or this instruction, always ask your healthcare professional. [employer] disclaims any warranty or liability for your [...] meter kit. 1 each 0 12/14/2014 Insulin [place], Disposable, (BD INSULIN PEN NEEDLE UF MINI) [...] PM EDT Office Visit Cardiology at [address] [address] Milagros Hernandez MD [facility] [place] [address] Scheduled Procedures Name Priority Associated Diagnoses Date/Ti ca EGD, UPPER GI ENDOSCOPY (WRV U 2.09) Peptic stricture of esophagus documented as of this encounter Procedures Procedure Name Priority Date/Time Associated Diagnosis Comments Up Gi Endoscopy, Ball Dil, 30Mm (06377) 03/16/2023 1:03 PM EST Peptic stricture of esophagus UPPER GI ENDOSCOPY Routine 03/16/2023 12 :23 PM EST POCT GLUCOSE Routine 03/16/2023 12:05 PM EST documented in this encounter Results * UPPER GI ENDOSCOPY (03/16/2023 12:23 PM EST) UPPER GI ENDOSCOPY [facility] Endoscopy Procedure Date: 03/16/2023 12:23 PM ? Patient Name: Jennifer Irving ? Date of : 1960 ? Age: 62 ? Order #: [id number] ? Instrument Name: [id number] ? Procedure: ? Upper GI endoscopy Providers: [...] personally performed the entire procedure. ? ___ aDvid Dejesus MD 03/16/2023 1:29:05 PM This report has been signed electronically. Number of Addenda: 0 Note Initiated On: 03/16/2023 12:23 PM PROVATION 03/16/2023 12:2 3 PM EST Ana Gillespie APRN GENERAL SURGICAL ORD ERABLES PROVATION * POCT Glucose (03/16/2023 12:05 PM EST) Glucose, POC 104 65 - 199 mg/dL [facility] Comment: Supplemental ranges: <140 mg/dL before meals <180 mg/dL all other times of the day Blood 03/16/2023 12:0 5 PM EST 03/16/2023 12:05 PM EST David Dejesus MD POINT OF CARE TEST ORDERABLES [facility] [place] [address] documented in this encounter Visit Diagnoses Not [...] RN) documented in this encounter Care Teams Truck Crane Operator Helper Relationship Specialty Start Date End Date Ana Gillespie APRN [address] [place] [address] PCP - General Family Medicine 02/03/19 documented as of this encounter
--- OUTSIDE RECORDS SUMMARY | 2024-02-29 21:27 | XMS_ITS | Encounter Summary ---
[place] [address] Care Team Providers Care Telecommunications Network Engineer Name Role Phone Ana Gillespie VAUGHN Primary Care Provider [phone] Reason for Referral * Diagnostic Test (Routine) - Closed Specialty Diagnoses / Procedures Referred By Contjovani t Referred To Contact Radiology Diagnoses Neuroleptic-induced parkinsonism Procedures IR G-Tube Check/Change ErosFanine merritt PA [facility] [place] [address] [facility] [place] [address] Referral ID Status Reason Start Date Expiration Date V isits Requested Visits Authorized [id number] Closed Specialty Service Requested 04/05/2023 10/03/2024 1 1 Reason for Visit * Diagnostic Test (Routine) - Closed Specialty Diagnoses / Procedures Referred By Contjovani t Referred To Contact Radiology Diagnoses Neuroleptic-induced parkinsonism Procedures IR G-Tube Check/Change ErosFannie merritt PA [facility] [place] [address] [facility] [place] [address] Referral ID Status Reason Start Date Expiration Date V isits Requested Visits Authorized [id number] Closed Specialty Service Requested 04/05/2023 10/03/2024 1 1 Encounter Details Date Type Department Care Team (Latest Contact Info) Description 04/06/2023 1:11 PM EST - 04/06/2023 11:59 PM EST Hospital Encounter Radiology at [facility] [place] [address] Moustapha Hart MD [facility] [address] [place] [address] Neuroleptic-induced parkinsonism Discharge Disposition: Home Social History [...] or its attachments. INTERVENTIONAL RADIOLOGY PHONE NUMBERS [phone] If you have a NON Low profile feeding tube, call with any questions or concerns. During regular office hours call: [phone]. If it is after regular office hours, weekends or holidays, please call [phone] and ask to speak to the Cpc Coder instructional systems designer for Interventional Radiology. If you have a low profile ???ESTRELLITA-FAM?? feeding tube, please call Dejah Stauffer RN for any issues: [phone]. Revised 02/23/19 documented in this encounter Medications [...] meter kit. 1 each 0 12/14/2014 Insulin [place], Disposable, (BD INSULIN PEN NEEDLE UF MINI) [...] of : 1960 AGE: 62 y.o. Address: [address] [address] (home) Mobile: Telephone Information: Referring Provider: Fannie Conde REASON FOR VISIT: Order Questions Answers Where will study be performed? [facility] Radiology [120] Is the patient on anticoagulant / antiplatelet therapy ? No Reason for exam and clinical history: 62F with G-tube (last exchanged 03/10), 16- Fr gjf-yco-rnwqmjw (ESTRELLITA). G-tube locked up overnight 04/04 - [facility] pulled the g tube and the [...] Questions Answers Where will study be performed? [facility] Radiology [120] Is the patient on anticoagulant / antiplatelet therapy ? No Reason for exam and clinical history: 62F with G-tube (last exchanged 03/10), 16- Fr qwe-wzz-nbrqvvf (ESTRELLITA). G-tube locked up overnight 04/04 - [facility] pulled the g tube and the balloon exploded in her. They put a barba cath in History of Present Illness: Per chart review, Jennifer Irving is a 62 y.o. female presenting to Interventional Radiology to undergo G-tube check/exchange in the setting of dislodged catheter. Per report, patient presented to [facility] and they pulled the catheter and [...] glucose meter kit. 1 each 0 Insulin [place], Disposable, (BD INSULIN PEN NEEDLE UF MINI) [...] IR G-Tube Check/Change 11/27/2022 Hang Cooper PA [facility] INTERVENTIONL RAD IR G-TUBE CHECK/CHANGE 03/10/2023 IR G-Tube Check/Change 03/10/2023 Geronimo Chambers DO [facility] INTERVENTIONL RAD IR G-TUBE PLACEMENT 09/11/2022 IR G-Tube Placement 09/11/2022 Moustapha Hart MD [facility] INTERVENTIONL RAD IR SUTURE RELEASE 09/25/2022 IR Suture Release 09/25/2022 Yoselin Ghosh PA [facility] INTERVENTIONL RAD PERCUTANEOUS GASTROSTOMY N/A 09/11/2022 PERCUTANEOUS GASTROSTOMY performed by Aiden Flores MD at [facility] CATY PRO COLONOSCOPY, BIOPSY N/A 03/20/2016 COLONOSCOPY FLEXIBLE, WITH BX performed by David Dejesus MD at [facility] ENDOSCOPY PRO COLONOSCOPY, DIAGNOSTIC N/A 03/01/2020 COLONOSCOPY, DIAGNOSTIC performed by David Dejesus MD at [facility] ENDOSCOPY PRO ENDOSCOPIC US EXAM, ESOPH N/A 03/31/2022 UPPER EUS- ENDOSCOPIC ULTRASOUND performed by David Dejesus MD at [facility] ENDOSCOPY PRO UP GI ENDOSCOPY, BALL DIL, 30MM N/A 12/24/2022 EGD,WITH DILATION ESOPHAGUS WITH BALLOON,< 30 MM (WRVU 2.67) performed by David Dejesus MDat [facility] ENDOSCOPY PRO UP GI ENDOSCOPY, BALL DIL, 30MM N/A 01/12/2023 EGD,WITH DILATION ESOPHAGUS WITH BALLOON,< 30 MM (WRVU 2.67) performed by David Dejesus MDat [facility] ENDOSCOPY PRO UP GI ENDOSCOPY, BALL DIL, 30MM N/A 02/26/2023 EGD,WITH DILATION ESOPHAGUS WITH BALLOON,< 30 MM (WRVU 2.67) performed by David Dejesus MDat [facility] ENDOSCOPY PRO UP GI ENDOSCOPY, BALL DIL, 30MM N/A 03/16/2023 EGD,WITH DILATION ESOPHAGUS WITH BALLOON,< 30 MM (WRVU 2.67) performed by David Dejesus [facility] ENDOSCOPY PRO UP GI ENDOSCOPY, BALL DIL, 30MM N/A 03/30/2023 EGD,WITH DILATION ESOPHAGUS WITH BALLOON,< 30 MM (WRVU 2.67) performed by David Dejesus [facility] ENDOSCOPY PRO UPPER GI ENDOSCOPY, BIOPSY N/A 04/03/2014 UPPER GASTROINTESTINAL ENDOSCOPY,WITH BIOPSY SINGLE OR MULTIPLE performed by David Dejesus [facility] ENDOSCOPY PRO UPPER GI ENDOSCOPY, BIOPSY N/A 03/20/2016 EGD WITH BIOPSY performed by David Dejesus MD at [facility] ENDOSCOPY PRO UPPER GI ENDOSCOPY, BIOPSY N/A 11/22/2018 EGD WITH BIOPSY (WRVU 2.49) performed by David Dejesus MD at [facility] ENDOSCOPY PRO UPPER GI ENDOSCOPY, BIOPSY N/A 03/01/2020 UPPER GASTROINTESTINAL ENDOSCOPY,WITH BIOPSY SINGLE OR MULTIPLE (WRVU 2.49) performed by David Dejesus MD at [facility] ENDOSCOPY PRO UPPER GI ENDOSCOPY, BIOPSY N/A 09/23/2021 EGD WITH BIOPSY (WRVU 2.49) performed by David Dejesus MD at [facility] ENDOSCOPY PRO UPPER GI ENDOSCOPY, BIOPSY N/A 03/31/2022 EGD WITH BIOPSY (WRVU 2.49) performed by David Dejesus MD at [facility] ENDOSCOPY PRO UPPER GI ENDOSCOPY, BIOPSY N/A 07/03/2022 EGD WITH BIOPSY (WRVU 2.49) performed by David Dejesus MD at [facility] ENDOSCOPY PRO UPPER GI ENDOSCOPY, DIAGNOSTIC N/A 04/03/2014 EGD, UPPER GI ENDOSCOPY performed by David Dejesus MD at [facility] ENDOSCOPY PRO UPPER GI ENDOSCOPY, DIAGNOSTIC N/A 03/01/2020 EGD, UPPER GI ENDOSCOPY performed by David Dejesus MD at [facility] ENDOSCOPY PRO UPPER GI ENDOSCOPY, DIAGNOSTIC N/A 09/09/2022 EGD, UPPER GI ENDOSCOPY (WRVU 2.09) performed by Ayo Russ MD at [facility] MAIN OR Social History and [...] PM EDT Office Visit Cardiology at [address] [address] Milagros Hernandez MD [facility] [place] [place] [address] Scheduled Procedures Name Priority Associated Diagnoses Date/Ti [...] procedure was performed under fluoroscopic guidance. ??A concrete sculptor fluoroscopic image was obtained. ??Contrast was injected through the barba catheter and another fluoroscopic image was obtained. ??Through the catheter, an 0.035 stiff angled glide wire was advanced. ??The catheter was removed. ??Over the wire, a new 16-Fr uot-sex-jfsvayz (ESTRELLITA) gastrostomy catheter was advanced. ??The retention balloon was inflated with 5 cc of sterile water. ??The gastrostomy was injected with contrast and repeat fluoroscopic image was obtained. ??A sterile dressing was applied. ?? Medications: 2% Lidocaine Jelly Topically Contrast: 10 cc Omnipaque 350, intra-enteric. Fluoroscopic Time: 0.2 minutes. Estimated Blood Loss: < 5 cc. Complications: ??No immediate. Findings: Placement of new 16-Fr lgi-ljv-zacfcqp (ESTRELLITA) catheter positioned within the stomach. ?? [...] mLs documented in this encounter Care Teams Telecommunications Network Engineer Relationship Specialty Start Date End Date Ana Gillespie APRN [address] [place] [address] PCP - General Family Medicine 02/03/19 documented as of this encounter
--- OUTSIDE RECORDS SUMMARY | 2024-02-29 21:27 | XMS_ITS | Encounter Summary ---
Author Organization [facility] [place] [address] Care Team Providers Care Code Official Name Role Phone Ana Gillespie APRN Primary Care Provider [phone] Encounter Details Date Type Department Care Team (Late st Contact Info) Description 05/05/2023 Telephone Gastroenterology at [facility] [place] [address] Parris Maravilla Social History Tobacco Use Types [...] - 05/05/2023 10:15 AM EST Jennifer Irving [id number] Diagnosis/Indication: repeat petic stricture dilation - please [...] your procedure. Who will likely be your concrete mixing truck driver for the procedure? *Please Verify [...] PM EDT Office Visit Cardiology at [address] [address] Milagros Hernandez MD [facility] [place] [address] Scheduled Procedures Name Priority Associated Diagnoses Date/Ti me EGD, UPPER GI ENDOSCOPY (WRV U 2.09) Peptic stricture of esophagus documented as of this encounter Visit Diagnoses Not on filedocumented in this encounter Care Teams Code Official Relationship Specialty Start Date End Date Ana Gillespie APRN [address] [place] [address] PCP - General Family Medicine 02/03/19 documented as of this encounter
--- OUTSIDE RECORDS SUMMARY | 2024-02-29 21:27 | XMS_ITS | Encounter Summary ---
[place] [address] Care Team Providers Care Audiovisual Equipment Operator Name Role Phone Ana Gillespie VAUGHN Primary Care Provider [phone] Reason for Referral * Diagnostic Test (Routine) - Closed Specialty Diagnoses / Procedures Referred By Esperanza rodríguez Referred To Contact Radiology Diagnoses Problem with gastrostomy tube Procedures IR G-Tube Check/Change Nisha Chavez MD [facility] [place] [address] [place] [address] Referral ID Status Reason Start Date Expiration Date V isits Requested Visits Authorized [id number] Closed Specialty Service Requested 05/09/2023 11/06/2024 1 1 Reason for Visit * Diagnostic Test (Routine) - Closed Specialty Diagnoses / Procedures Referred By Esperanza rodríguez Referred To Contact Radiology Diagnoses Problem with gastrostomy tube Procedures IR G-Tube Check/Change Nisha Chavez MD [facility] [place] [address] [place] [address] Referral ID Status Reason Start Date Expiration Date V isits Requested Visits Authorized [id number] Closed Specialty Service Requested 05/09/2023 11/06/2024 1 1 Encounter Details Date Type Department Care Team (Latest Contact Info) Description 05/09/2023 11:00 AM EST - 05/09/2023 11:59 PM EST Hospital Encounter Radiology at [facility] [place] [address] Azeem Alarcon MD [facility] DR DI[place] [address] Problem with gastrostomy tube Discharge Disposition: Home [...] meter kit. 1 each 0 12/14/2014 Insulin [place], Disposable, (BD INSULIN PEN NEEDLE UF MINI) [...] Office Visit Cardiology at [address] [address] Milagros Hernandez MD [facility] [place] [address] Scheduled Procedures Name Priority Associated Diagnoses Date/Ti [...] mLs documented in this encounter Care Teams Audiovisual Equipment Operator Relationship Specialty Start Date End Date Ana Gillespie APRN [address] [place] [address] PCP - General Family Medicine 02/03/19 documented as of this encounter
--- OUTSIDE RECORDS SUMMARY | 2024-02-29 21:27 | XMS_ITS | Encounter Summary ---
Author Organization Formerly [facility] [place] [address] Care Team Providers Care Supervisor Printing And Stamping Name Role Phone Ana Gillespie APRN Primary Care Provider [phone] Encounter Details Date Type Department Care Team (Late st Contact Info) Description 03/30/2023 6:01 PM EST Anesthesia [place] [phone] Betty Bhagat MD [facility] [place] [address] Cristine Gomez CRNA [facility] [place] [address] Anesthesia Record Procedure Summary Procedure Name Responsible [...] Procedure Summary Date: 03/30/23 Room / Location: [facility] ENDO 2 / [facility] ENDOSCOPY Anesthesia Start: 1800 Anesthesia Stop: Procedure: EGD,WITH DILATION ESOPHAGUS WITH BALLOON,< 30 MM (WRVU 2.67) (Trunk) Diagnosis: Peptic stricture of esophagus (peptic stricture dilation - please schedule Wednesday before ) Surgeons: David Dejesus MD Responsible Provider: Betty Bhagat MD Anesthesia Type: general ASA Status: 3 All Anesthesia Providers: Anesthesiologist: eBtty Bhagat MD SUPERVISOR TAN ROOM: Cristine Gomez CRNA Vitals Value Taken Time BP 114/57 03/30/23 1833 Temp Pulse Resp 16 03/30/233 SpO2 99 % 03/30/231838 Pain Level 0 03/30/231832 Vitals shown include unfiled device data. Patient Location: PACU/[facility] Level of Consciousness: Conscious but Sleepy [...] y.o. female. Procedure(s): E[facility], [facility] Patient Active Problem List Diagnosis [...] IR G-Tube Check/Change 11/27/2022 Hang Cooper PA [facility] INTERVENTIONL RAD ??? IR G-TUBE CHECK/CHANGE 03/10/2023 IR G-Tube Check/Change 03/10/2023 Geronimo Chambers, [facility] INTERVENTIONL RAD ??? IR G-TUBE PLACEMENT 09/11/2022 IR G-Tube Placement 09/11/2022 Moustapha Hart MD [facility] INTERVENTIONL RAD ??? IR SUTURE RELEASE 09/25/2022 IR Suture Release 09/25/2022 Yoselin Ghosh PA [facility] INTERVENTIONL RAD ??? PERCUTANEOUS GASTROSTOMY N/A 09/11/2022 PERCUTANEOUS GASTROSTOMY performed by Aiden Flores MD at [facility] CATY ??? PRO COLONOSCOPY, BIOPSY N/A 03/20/2016 COLONOSCOPY FLEXIBLE, WITH BX performed by David Dejesus MD at [facility] ENDOSCOPY ??? PRO COLONOSCOPY, DIAGNOSTIC N/A 03/01/2020 COLONOSCOPY, DIAGNOSTIC performed by David Dejesus MD at [facility] ENDOSCOPY ??? PRO ENDOSCOPIC US EXAM, ESOPH N/A 03/31/2022 UPPER EUS- ENDOSCOPIC ULTRASOUND performed by David Dejesus MD at [facility] ENDOSCOPY ??? PRO UP GI ENDOSCOPY, [...] Dejesus [facility] ENDOSCOPY ??? PRO UPPER GI ENDOSCOPY, BIOPSY N/A 04/03/2014 UPPER GASTROINTESTINAL ENDOSCOPY,WITH BIOPSY SINGLE OR MULTIPLE [facility]?? PRO UPPER GI ENDOSCOPY, BIOPSY N/A 03/20/2016 EGD WITH BIOPSY performed by David Dejesus MD at [facility] ENDOSCOPY ??? PRO UPPER GI ENDOSCOPY, BIOPSY N/A 11/22/2018 EGD WITH BIOPSY (WRVU 2.49) performed by David Dejesus MD at [facility] ENDOSCOPY ??? PRO UPPER GI ENDOSCOPY, BIOPSY N/A 03/01/2020 UPPER GASTROINTESTINAL ENDOSCOPY,WITH BIOPSY SINGLE OR MULTIPLE (WRVU 2.49) performed by David Dejesus MD at [facility] ENDOSCOPY ??? PRO UPPER GI ENDOSCOPY, BIOPSY N/A 09/23/2021 EGD WITH BIOPSY (WRVU 2.49) performed by David Dejesus MD at [facility] ENDOSCOPY ??? PRO UPPER GI ENDOSCOPY, BIOPSY N/A 03/31/2022 EGD WITH BIOPSY (WRVU 2.49) performed by David Dejesus MD at [facility] ENDOSCOPY ??? PRO UPPER GI ENDOSCOPY, BIOPSY N/A 07/03/2022 EGD WITH BIOPSY (WRVU 2.49) performed by David Dejesus MD at [facility] ENDOSCOPY ??? PRO UPPER GI ENDOSCOPY, DIAGNOSTIC N/A 04/03/2014 EGD, UPPER GI ENDOSCOPY performed by David Dejesus MD at [facility] ENDOSCOPY ??? PRO UPPER GI ENDOSCOPY, DIAGNOSTIC N/A 03/01/2020 EGD, UPPER GI ENDOSCOPY performed by David Dejesus MD at [facility] ENDOSCOPY ??? PRO UPPER GI ENDOSCOPY, DIAGNOSTIC N/A 09/09/2022 EGD, UPPER GI ENDOSCOPY (WRVU 2.09) performed by Ayo Russ MD at [facility] MAIN OR Social History Tobacco Use [...] risks discussed with patient. Plan discussed with SUPERVISOR TAN ROOM and attending. Anesthesia Screening documented in this encounter Plan of Treatment Upcoming Encounters Date Type Department Care Team (Late st Contact Info) Description 03/10/2024 4:00 PM EDT Office Visit Cardiology at [address] [address] Milagros Hernandez MD [facility] [place] [address] Scheduled Procedures Name Priority Associated Diagnoses Date/Ti [...] mg documented in this encounter Care Teams Supervisor Printing And Stamping Relationship Specialty Start Date End Date Ana Gillespie APRN [address] [place] [address] PCP - General Family Medicine 02/03/19 documented as of this encounter
--- OUTSIDE RECORDS SUMMARY | 2024-02-29 21:27 | XMS_ITS | Encounter Summary ---
Author Organization [facility] Address [facility] [place] [address] Care Team Providers Care Harness Cutter Name Role Phone Ana Gillespie APRN Primary Care Provider [phone] Encounter Details Date Type Department Care Team (Late st Contact Info) Description 03/09/2023 [place] [phone] Masha Adkins MD [facility] [place] [address] Social History Tobacco Use Types Packs/Day Years [...] agreement with plan. Masha Teran) Lucille MARTE [employer] Hand PGY4 documented in this encounter Plan of Treatment Upcoming Encounters Date Type Department Care Team (Late st Contact Info) Description 03/10/2024 4:00 PM EDT Office Visit Cardiology at [address] [address] Milagros Hernandez MD [facility] [address] Scheduled Orders Name Type Priority Associated Diagnoses [...] esophagus documented in this encounter Care Teams Harness Cutter Relationship Specialty Start Date End Date Ana Gillespie APRN [address] [place] [address] PCP - General Family Medicine 02/03/19 documented as of this encounter
--- OUTSIDE RECORDS SUMMARY | 2024-02-29 21:27 | XMS_ITS | Encounter Summary ---
Author Organization Formerly [facility] [place] [address] Care Team Providers Care Director Of People Name Role Phone Ana Gillespie APRN Primary Care Provider [phone] Encounter Details Date Type Department Care Team (Late Contact Info) Description 03/16/2023 Orders [place] [phone] David Dejesus MD [facility] [place] [address] Peptic stricture of esophagus Social History Tobacco [...] PM EDT Office Visit Cardiology at [address] [phone] Milagros Hernandez MD [facility] [place] [address] Scheduled Orders Name Type Priority Associated Diagnoses [...] esophagus documented in this encounter Care Teams Director Of People Relationship Specialty Start Date End Date Ana Gillespie APRN [address] [place] [address] PCP - General Family Medicine 02/03/19 documented as of this encounter
--- OUTSIDE RECORDS SUMMARY | 2024-02-29 21:27 | XMS_ITS | Encounter Summary ---
Author Organization [facility] Address [facility] [place] [address] Care Team Providers Care Electrophysiologist Name Role Phone Ana Gillespie VAUGHN Primary Care Provider [phone] Encounter Details Date Type Department Care Team (Late st Contact Info) Description 03/16/2023 1:00 PM EST - 03/16/2023 1:30 PM EST Surgery Gastroenterology at [facility] [place] [address] David Dejesus MD [facility] [place] [address] EGD,WITH DILATION ESOPHAGUS WITH BALLOON,< 30 MM [...] the day after the procedure, use an spxw-qts-tygpodr spray to numb your throat. Sucking on [...] occurs, please contact your Doctor. Please call [phone] before 8pm Mon-Fri with problems, questions or concerns. If you call after 8pm or on weekends, call the Hospital at [phone] and ask to speak to the Airport Operations Supervisor operational test mechanic and the continuous drier operator will contact that person for you. When should you call for help? Call [phone] anytime you think you may need emergency [...] more? Visit our health information library at [email or web address] You can also view health information on [employer], your personal patient account. Log in or sign uptoday. Enter J014 in the search box to learn more about Esophageal Dilation: What to Expect at Home. Current as of: December 18, 2018Content Version: 12.4 ?? 0516-5672 [facility]. Care instructions adapted under license by [facility]. If you have questions about a medical condition or this instruction, always ask your healthcare professional. [facility] disclaims any warranty or liability for your [...] meter kit. 1 each 0 12/14/2014 Insulin [place], Disposable, (BD INSULIN PEN NEEDLE UF MINI) [...] PM EDT Office Visit Cardiology at [address] [address] Milagros Hernandez MD [facility] [place] [address] Scheduled Procedures Name Priority Associated Diagnoses Date/Ti al EGD, UPPER GI ENDOSCOPY (WRV U 2.09) Peptic stricture of esophagus documented as of this encounter Procedures Procedure Name Priority Date/Time Associated Diagnosis Comments Up Gi Endoscopy, Ball Dil, 30Mm (83634) 03/16/2023 1:03 PM EST Peptic stricture of esophagus UPPER GI ENDOSCOPY Routine 03/16/2023 12 :23 PM EST POCT GLUCOSE Routine 03/16/2023 12:05 PM EST documented in this encounter Results * UPPER GI ENDOSCOPY (03/16/2023 12:23 PM EST) Pathologist [facility] UPPER GI ENDOSCOPY [facility] Endoscopy Procedure Date: 03/16/2023 12:23 PM ? Patient Name: Jennifer Irving ? Date of : 1960 ? Age: 62 ? Order #: [id number] ? Instrument Name: [id number] ? Procedure: ? Upper GI endoscopy Providers: [...] POC 104 65 - 199 mg/dL [facility] Comment: Supplemental ranges: <140 mg/dL before meals <180 mg/dL all other times of the day Blood 03/16/2023 12:0 5 PM EST 03/16/2023 12:05 PM EST David Dejesus MD POINT OF CARE TEST ORDERABLES Performing Organization Address [facility]/ZIP Co de Phone Number [facility] [place] [address] documented in this encounter Visit Diagnoses Diagnosis [...] RN) documented in this encounter Care Teams Electrophysiologist Relationship Specialty Start Date End Date Ana Gillespie APRN [address] [place] [address] PCP - General Family Medicine 02/03/19 documented as of this encounter
--- OUTSIDE RECORDS SUMMARY | 2024-02-29 21:27 | XMS_ITS | Encounter Summary ---
Author [facility] [place] [address] Care Team Providers Care Candy Wrapping Machine Operator Name Role Phone Ana Gillespie VAUGHN Primary Care Provider [phone] Reason for Referral * Diagnostic Test (Routine) - Closed Specialty Diagnoses / Procedures Referred By Esperanza rodríguez Referred To Contact Radiology Diagnoses Neuroleptic-induced parkinsonism Procedures IR G-Tube Check/Change Fannie Conde PA [facility] [place] [address] [place] [address] Referral ID Status Reason Start Date Expiration Date V isits Requested Visits Authorized [id number] Closed Specialty Service Requested 04/05/2023 10/03/2024 1 1 Encounter Details Date Type Department Care Team (Late st Contact Info) Description 04/05/2023 Notes [place] [address] Fannie Conde PA [facility] [place] [address] Social History Tobacco Use Types Packs/Day Years [...] PM EDT Office Visit Cardiology at [address] [address] Milagros Hernandez MD [facility] [place] [address] Scheduled Procedures Name Priority Associated Diagnoses Date/Ti [...] procedure was performed under fluoroscopic guidance. ??A nutritional health coach fluoroscopic image was obtained. ??Contrast was injected through the barba catheter and another fluoroscopic image was obtained. ??Through the catheter, an 0.035 stiff angled glide wire was advanced. ??The catheter was removed. ??Over the wire, a new 16-Fr fpb-rej-uwtksaz (ESTRELLITA) gastrostomy catheter was advanced. ??The retention balloon was inflated with 5 cc of sterile water. ??The gastrostomy was injected with contrast and repeat fluoroscopic image was obtained. ??A sterile dressing was applied. ?? Medications: 2% Lidocaine Jelly Topically Contrast: 10 cc Omnipaque 350, intra-enteric. Fluoroscopic Time: 0.2 minutes. Estimated Blood Loss: < 5 cc. Complications: ??No immediate. Findings: Placement of new 16-Fr zam-duv-cudoajn (ESTRELLITA) catheter positioned within the stomach. ?? [...] Parkinsonism documented in this encounter Care Teams Candy Wrapping Machine Operator Relationship Specialty Start Date End Date Ana Gillespie APRN [address] [place] [address] PCP - General Family Medicine 02/03/19 documented as of this encounter
--- OUTSIDE RECORDS SUMMARY | 2024-02-29 21:27 | XMS_ITS | Encounter Summary ---
Author Organization [facility] [place] [address] Care Team Providers Care Public Defender Name Role Phone Ana Gillespie APRN Primary Care Provider [phone] Encounter Details Date Type Department Care Team [...] PM EDT Office Visit Cardiology at [address] [address] Milagros Hernandez MD [facility] [place] [address] Scheduled Procedures Name Priority Associated Diagnoses Date/Ti me EGD, UPPER GI ENDOSCOPY (WRV U 2.09) Peptic stricture of esophagus documented as of this encounter Visit Diagnoses Not on filedocumented in this encounter Care Teams Public Defender Relationship Specialty Start Date End Date Ana Gillespie APRN [address] [place] [address] PCP - General Family Medicine 02/03/19 documented as of this encounter
--- OUTSIDE RECORDS SUMMARY | 2024-02-29 21:27 | XMS_ITS | Encounter Summary ---
Author Organization [facility] Address [facility] [place] [address] Care Team Providers Care Maple Sugar Maker Name Role Phone Ana Gillespie VAUGHN Primary Care Provider [phone] Encounter Details Date Type Department Care Team (Latest Contact Info) Description 03/30/2023 2:12 PM EST - 03/30/2023 7:04 PM EST Hospital Encounter Gastroenterology at [facility] [place] [address] David Dejesus MD [facility] [place] [address] Discharge Disposition: Home Social History Tobacco Use [...] the day after the procedure, use an fnhs-cyd-vmvubyo spray to numb your throat. Sucking on [...] occurs, please contact your Doctor. Please call [phone] before 8pm Mon-Fri with problems, questions or concerns. If you call after 8pm or on weekends, call the Hospital at [phone] and ask to speak to the Agronomist net developer consultant and the quick print operator will contact that person for you. When should you call for help? Call [phone] anytime you think you may need emergency [...] Where can you learn more? [facility] View your After Visit Summary and more online at [email or web address] If you would like to provide feedback about your hospital experience, please call the Office of Patient and Family Relations at . If you have received this After Visit Summary in error, please immediately return it in person to the department, or notify the [facility] Privacy Office by calling toll free at between the hours of 8AM and 5PM to arrange for our retrieval of the documents at no cost to you. Content Version: 12.2 ?? [phone] [employer]. Care instructions adapted under license by [facility]. If you have questions about a medical condition or this instruction, always ask your healthcare professional. [employer] disclaims any warranty or liability for your [...] the day after the procedure, use an frhs-nzn-lqjakmm spray to numb your throat. Sucking on [...] occurs, please contact your Doctor. Please call [phone] before 8pm Mon-Fri with problems, questions or concerns. If you call after 8pm or on weekends, call the Hospital at [phone] and ask to speak to the Agronomist net developer consultant and the quick print operator will contact that person for you. [...] Where can you learn more? [facility] View your After Visit Summary and more online at [email or web address] If you would like to provide feedback about your hospital experience, please call the Office of Patient and Family Relations at . If you have received this After Visit Summary in error, please immediately return it in person to the department, or notify the [facility] Privacy Office by calling toll free at between the hours of 8AM and 5PM to arrange for our retrieval of the documents at no cost to you. Content Version: 12.2 ?? [phone] [employer]. Care instructions adapted under license by [facility]. If you have questions about a medical condition or this instruction, always ask your healthcare professional. [employer] disclaims any warranty or liability for your [...] meter kit. 1 each 0 12/14/2014 Insulin [place], Disposable, (BD INSULIN PEN NEEDLE UF [...] PM EDT Office Visit Cardiology at [address] [address] Milagros Hernandez MD [facility] [place] [address] Scheduled Procedures Name Priority Associated Diagnoses Date/Ti me EGD, UPPER GI ENDOSCOPY (WRV U 2.09) Peptic stricture of esophagus documented as of this encounter Procedures Procedure Name Priority Date/Time Associated Diagnosis Comments Up Gi Endoscopy, Ball Dil, 30Mm (35554) 03/30/2023 6:02 PM EST Peptic stricture of esophagus UPPER GI ENDOSCOPY Routine 03/30/2023 5: 58 PM EST documented in this encounter Results * UPPER GI ENDOSCOPY (03/30/2023 5:58 PM EST) UPPER GI ENDOSCOPY [facility] Endoscopy Procedure Date: 03/30/2023 5:58 PM ? Patient Name: Jennifer Irving ? Date of : 1960 ? Age: 62 ? Order #: [id number] ? Instrument Name: [id number]- [id number] ? Procedure: ? Upper GI endoscopy Indications: ? Stenosis of the esophagus Providers: ? David Dejesus MD, Jennifer E. ? Theodora Garibay, ? Home Therapy Clinician Referring MD: ?Ana Keith: ? Propofol per [...] participated during the entire ? procedure, including non-fma portions. ? ___ David Dejesus MD 03/30/2023 [...] CRNA) documented in this encounter Care Teams Maple Sugar Maker Relationship Specialty Start Date End Date Ana Gillespie APRN [address] [place] [address] PCP - General Family Medicine 02/03/19 documented as of this encounter
--- OUTSIDE RECORDS SUMMARY | 2024-02-29 21:27 | XMS_ITS | Encounter Summary ---
Author Organization [facility] [place] [address] Care Team Providers Care Food Processing Plant Manager Name Role Phone Ana Gillespie APRN Primary Care Provider [phone] Encounter Details Date Type Department Care Team (Late st Contact Info) Description 03/16/2023 1:02 PM EST Anesthesia [place] [phone] Rio Aceves MD [facility] DR ANESTHESI[place] [address] Beti Cisneros CRNA [facility] [address] ANESTHESI[place]Y [place] [address] Anesthesia Record Procedure Summary Procedure Name Responsible [...] by Sergey Jordan RN PIV 03/16/23; 1221; ksyw-vyk-dccwgc catheter system; 22 gauge; metacarpal vein (top [...] Procedure Summary Date: 03/16/23 Room / Location: [facility] ENDO 2 / [facility] ENDOSCOPY Anesthesia Start: 1302 Anesthesia Stop: 1343 Procedure: EGD,WITH DILATION ESOPHAGUS WITH BALLOON,< 30 MM (WRVU 2.67) (Trunk) Diagnosis: Peptic stricture of esophagus (stricture dilation) Surgeons: David Dejesus MD Responsible Provider: Rio Aceves MD Anesthesia Type: general ASA Status: 3 All Anesthesia Providers: Anesthesiologist: Rio Aceves MD HISTOTECHNICIAN: Beti Cisneros CRNA Vitals Value Taken Time BP 110/60 03/16/23 1420 Temp Pulse Resp 18 03/16/23 1420 SpO2 96 % 03/16/23 1423 Pain Level 0 03/16/23 1420 Vitals shown include unfiled device data. Patient Location: PACU/[facility] Level [...] IR G-Tube Check/Change 11/27/2022 Hang Cooper PA [facility] INTERVENTIONL RAD ??? IR G-TUBE CHECK/CHANGE 03/10/2023 IR G-Tube Check/Change 03/10/2023 Geronimo Chambers, DO [facility] INTERVENTIONL RAD ??? IR G-TUBE PLACEMENT 09/11/2022 IR G-Tube Placement 09/11/2022 Moustapha Hart MD [facility] INTERVENTIONL RAD ??? IR SUTURE RELEASE 09/25/2022 IR Suture Release 09/25/2022 Yoselin Ghosh PA [facility] INTERVENTIONL RAD ??? PERCUTANEOUS GASTROSTOMY N/A 09/11/2022 PERCUTANEOUS GASTROSTOMY performed by Aiden Flores MD at [facility] CATY ??? PRO COLONOSCOPY, BIOPSY N/A 03/20/2016 COLONOSCOPY FLEXIBLE, WITH BX performed by David Dejesus MD at [facility] ENDOSCOPY ??? PRO COLONOSCOPY, DIAGNOSTIC N/A 03/01/2020 COLONOSCOPY, DIAGNOSTIC performed by David Dejesus MD at [facility] ENDOSCOPY ??? PRO ENDOSCOPIC US EXAM, ESOPH N/A 03/31/2022 UPPER EUS- ENDOSCOPIC ULTRASOUND performed by David Dejesus MD at [facility] ENDOSCOPY ??? PRO UP GI ENDOSCOPY, BALL DIL, 30MM N/A 12/24/2022 EGD,WITH DILATION ESOPHAGUS WITH BALLOON,< 30 MM (WRVU 2.67) performed by David Dejesus [facility] ENDOSCOPY ??? PRO UP GI ENDOSCOPY, BALL DIL, 30MM N/A 01/12/2023 EGD,WITH DILATION ESOPHAGUS WITH BALLOON,< 30 MM (WRVU 2.67) performed by David Dejesus [facility] ENDOSCOPY ??? PRO UP GI ENDOSCOPY, BALL DIL, 30MM N/A 02/26/2023 EGD,WITH DILATION ESOPHAGUS WITH BALLOON,< 30 MM (WRVU 2.67) performed by David Dejesus [facility] ENDOSCOPY ??? PRO UPPER GI ENDOSCOPY, BIOPSY N/A 04/03/2014 UPPER GASTROINTESTINAL ENDOSCOPY,WITH BIOPSY SINGLE OR MULTIPLE performed by David Dejesus [facility] ENDOSCOPY ??? PRO UPPER GI ENDOSCOPY, [...] 2.09) performed by Ayo Russ MD at [facility] MAIN OR Social History Tobacco [...] with patient and spouse. Plan discussed with HISTOTECHNICIAN and attending. Anesthesia Screening documented in this encounter Plan of Treatment Upcoming Encounters Date Type Department Care Team (Late st Contact Info) Description 03/10/2024 4:00 PM EDT Office Visit Cardiology at [address] [address] Milagros Hernandez MD [facility] [place] [address] Scheduled Procedures Name Priority Associated Diagnoses Date/Ti [...] mg documented in this encounter Care Teams Food Processing Plant Manager Relationship Specialty Start Date End Date Ana Gillespie APRN [address] [place] [address] PCP - General Family Medicine 02/03/19 documented as of this encounter
--- OUTSIDE RECORDS SUMMARY | 2024-02-29 21:27 | XMS_ITS | Encounter Summary ---
Author Organization [facility] [place] [address] Care Team Providers Care Safety Instructor Name Role Phone Ana Gillespie APRN Primary Care Provider [phone] Encounter Details Date Type Department Care Team (Late st Contact Info) Description 05/14/2023 Telephone [place] [phone] Chiquita James, RN Social History Tobacco Use [...] PM EDT Office Visit Cardiology at [address] [address] Milagros Hernandez MD [facility] [place] [address] Scheduled Procedures Name Priority Associated Diagnoses Date/Ti me EGD, UPPER GI ENDOSCOPY (WRV U 2.09) Peptic stricture of esophagus documented as of this encounter Visit Diagnoses Not on filedocumented in this encounter Care Teams Safety Instructor Relationship Specialty Start Date End Date Ana Gillespie APRN [address] [place] [address] PCP - General Family Medicine 02/03/19 documented as of this encounter
--- OUTSIDE RECORDS SUMMARY | 2024-02-29 21:27 | XMS_ITS | Encounter Summary ---
Author Organization [facility] Address [facility] [place] [address] Care Team Providers Care Manager Clinical Applications Name Role Phone Ana Gillespie VAUGHN Primary Care Provider [phone] Encounter Details Date Type Department Care Team (Late st Contact Info) Description 04/19/2023 Telephone [place] [address] Juice Maxwell RN Social History [...] is requesting a call back to reschedule. [phone] Forwarded to scheduling. documented in this encounter Plan of Treatment Upcoming Encounters Date Type Department Care Team (Late st Contact Info) Description 03/10/2024 4:00 PM EDT Office Visit Cardiology at [address] [phone] Milagros Hernandez MD [facility] [address] Scheduled Procedures Name Priority Associated Diagnoses Date/Ti me EGD, UPPER GI ENDOSCOPY (WRV U 2.09) Peptic stricture of esophagus documented as of this encounter Visit Diagnoses Not on filedocumented in this encounter Care Teams Manager Clinical Applications Relationship Specialty Start Date End Date Ana Gillespie APRN [address] [place] [address] PCP - General Family Medicine 02/03/19 documented as of this encounter
--- OUTSIDE RECORDS SUMMARY | 2024-02-29 21:27 | XMS_ITS | Encounter Summary ---
Author Organization [facility] [place] [address] Care Team Providers Care Distance Learning Program Coordinator Name Role Phone Ana Gillespie APRN Primary Care Provider [phone] Encounter Details Date Type Department Care Team (Casimiro shetty Contact Info) Description 04/15/2023 Telephone Cardiology at [address] [phone] Chela Walsh, RN Social History Tobacco Use [...] PM EDT Office Visit Cardiology at [address] [address] Milagros Hernandez MD [facility] [place] [address] Scheduled Procedures Name Priority Associated Diagnoses Date/Ti me EGD, UPPER GI ENDOSCOPY (WRV U 2.09) Peptic stricture of esophagus documented as of this encounter Visit Diagnoses Not on filedocumented in this encounter Care Teams Distance Learning Program Coordinator Relationship Specialty Start Date End Date Ana Gillespie APRN [address] [place] [address] PCP - General Family Medicine 02/03/19 documented as of this encounter
--- OUTSIDE RECORDS SUMMARY | 2024-02-29 21:27 | XMS_ITS | Encounter Summary ---
Author Organization [facility] Address [facility] [place] [address] Care Team Providers Care Precipitator Name Role Phone Ana Gillespie APRN Primary Care Provider [phone] Reason for Visit * Reason Onset Date Comments Medication Refill 03/03/2023 Metoprolol Suc cinate, instruction change. Encounter Details Date Type Department Care Team (Late st Contact Info) Description 03/03/2023 Refill Cardiology at [address] [phone] Milagros Hernandez MD [facility] [place] [address] Medication Refill (Metoprolol Succinate, instruction change.) Social [...] PM EDT Office Visit Cardiology at [address] [address] Milagros Hernandez MD [facility] [place] [place] [address] Scheduled Procedures Name Priority Associated Diagnoses Date/Ti me EGD, UPPER GI ENDOSCOPY (WRV U 2.09) Peptic stricture of esophagus documented as of this encounter Visit Diagnoses Diagnosis HFrEF (heart failure with reduced ejection fraction) documented in this encounter Care Teams Precipitator Relationship Specialty Start Date End Date Ana Gillespie APRN [address] [place] [address] PCP - General Family Medicine 02/03/19 documented as of this encounter
--- OUTSIDE RECORDS SUMMARY | 2024-02-29 21:27 | XMS_ITS | Encounter Summary ---
Author Organization [facility] Address [facility] [place] [address] Care Team Providers Care Geriatric Nursing Assistant Name Role Phone Ana Gillespie VAUGHN Primary Care Provider [phone] Reason for Visit * Reason Onset Date Comments Questions 04/13/2023 Low BP reading Encounter Details Date Type Department Care Team (Late st Contact Info) Description 04/13/2023 Telephone Cardiology at [address] [phone] Chela Walsh, RN Questions (Low BP reading) [...] PM EDT Office Visit Cardiology at [address] [address] Milagros Hernandez MD [facility] [place] [address] Scheduled Procedures Name Priority Associated Diagnoses Date/Ti me EGD, UPPER GI ENDOSCOPY (WRV U 2.09) Peptic stricture of esophagus documented as of this encounter Visit Diagnoses Not on filedocumented in this encounter Care Teams Geriatric Nursing Assistant Relationship Specialty Start Date End Date Ana Gillespie APRN [address] [place] [address] PCP - General Family Medicine 02/03/19 documented as of this encounter
--- OUTSIDE RECORDS SUMMARY | 2024-02-29 21:27 | XMS_ITS | Encounter Summary ---
[place] [address] Care Team Providers Care Senior Animator Name Role Phone Ana Gillespie VAUGHN Primary Care Provider Reason for Referral * Diagnostic Test (Routine) - Closed Specialty Diagnoses / Procedures Referred By Esperanza rodríguez Referred To Contact Radiology Diagnoses Farrell's esophagus with high grade dysplasia Gastrostomy tube in place Procedures IR G-Tube Check/Change Steven Harding MD [facility] [place] [address] [place] [address] Referral ID Status Reason Start Date Expiration Date V isits Requested Visits Authorized [id number] Closed Specialty Service Requested 03/09/2023 09/06/2024 1 1 Reason for Visit * Diagnostic Test (Routine) - Closed Specialty Diagnoses / Procedures Referred By Esperanza rodríguez Referred To Contact Radiology Diagnoses Farrell's esophagus with high grade dysplasia Gastrostomy tube in place Procedures IR G-Tube Check/Change Steven Harding MD [facility] [place] [address] [place] [address] Referral ID Status Reason Start Date Expiration Date V isits Requested Visits Authorized [id number] Closed Specialty Service Requested 03/09/2023 09/06/2024 1 1 Encounter Details Date Type Department Care Team (Latest Contact Info) Description 03/10/2023 12:57 PM EDT - 03/10/2023 11:59 PM EDT Hospital [place] [address] Azeem Alarcon MD [facility] [place] [address] Farrell's esophagus with high grade dysplasia; Gastrostomy [...] Jordan RN - 03/10/2023 4:17 PM EDT [facility] Interventional Radiology Discharge Instructions for Feeding [...] or its attachments. INTERVENTIONAL RADIOLOGY PHONE NUMBERS [phone] If you have a NON Low profile feeding tube, call with any questions or concerns. During regular office hours call: [phone]. If it is after regular office hours, weekends or holidays, please call [phone] and ask to speak to the Retail Sales Director primary health organisation manager for Interventional Radiology. If you have a low profile ???ESTRELLITA-BARLOW?? feeding tube, please call Dejah Stauffer RN for any issues: [phone]. Revised 02/23/19 documented in this encounter Medications [...] meter kit. 1 each 0 12/14/2014 Insulin [place], Disposable, (BD INSULIN PEN NEEDLE UF MINI) [...] of : 1960 AGE: 62 y.o. Address: [address] [address] Phone: There are no phone numbers on file. Mobile: Telephone Information: Referring Provider: Steven Harding REASON FOR VISIT: G-tube check/exchange Order Questions Answers Where will study be performed? [facility] Radiology [120] Is the patient [...] PM EDT Office Visit Cardiology at [address] [address] Milagros Hernandez MD [facility] [place] [address] Scheduled Procedures Name Priority Associated Diagnoses Date/Ti [...] procedure was performed under fluoroscopic guidance. ??A lead php developer fluoroscopic image was obtained. ??Contrast was injected through the gastrostomy catheter and another fluoroscopic image was obtained. ??Through the catheter, an 0.035 Amplatz wire was advanced. ??The catheter was removed. ??Over the wire, a new 16-Fr mae-kle-iebbbdy (ESTRELLITA) gastrostomy catheter was advanced. ??The retention [...] gastric lumen. ?? Exchange for new 16-Fr tzv-inh-dbmlcak (ESTRELLITA) catheter positioned within the stomach. ?? Impression: Successful gastrostomy catheter exchange. ??The catheter may be used immediately. Resident/Fellow: None. Attending: Dr. Geronimo Chambers. I, Dr. Chambers, was present throughout the procedure. Azeem Alarcon MD IMG IR ORDERABLES * POCT Glucose (03/10/2023 3:25 PM EDT) Glucose, POC 76 65 - 199 mg/dL [facility] Comment: Supplemental ranges: <140 mg/dL before meals <180 mg/dL all other times of the day Blood 03/10/2023 3:25 PM EDT 03/10/2023 3:25 PM EDT Azeem Alarcon MD POINT OF CARE TEST O RDERABLES [facility] [place] [address] documented in this encounter Visit Diagnoses Diagnosis [...] documented in this encounter Care Teams Senior Animator Relationship Specialty Start Date End Date Ana Gillespie APRN [address] [place] [address] PCP - General Family Medicine 02/03/19 documented as of this encounter
--- OUTSIDE RECORDS SUMMARY | 2024-02-29 21:27 | XMS_ITS | Encounter Summary ---
Author Organization [facility] [place] [address] Care Team Providers Care Freight Tallier Name Role Phone Ana Gillespie APRN Primary Care Provider [phone] Encounter Details Date Type Department Care Team (Late Contact Info) Description 04/30/2023 [place] [phone] David Dejesus MD [facility] [place] [address] Peptic stricture of esophagus Social History Tobacco [...] PM EDT Office Visit Cardiology at [address] [phone] Milagros Hernandez MD [facility] [place] [address] Scheduled Orders Name Type Priority Associated Diagnoses [...] esophagus documented in this encounter Care Teams Freight Tallier Relationship Specialty Start Date End Date Ana Gillespie APRN [address] [place] [address] PCP - General Family Medicine 02/03/19 documented as of this encounter
--- OUTSIDE RECORDS SUMMARY | 2024-02-29 21:27 | XMS_ITS | Encounter Summary ---
Author Organization [facility] Address [facility] [place] [address] Care Team Providers Care Social Media Assistant Name Role Phone Ana Gillespie VAUGHN Primary Care Provider [phone] Encounter Details Date Type Department Care Team (Late st Contact Info) Description 03/30/2023 4:30 PM EST - 03/30/2023 5:00 PM EST Surgery Gastroenterology at [facility] [place] [address] David Dejesus MD [facility] [place] [address] EGD,WITH DILATION ESOPHAGUS WITH BALLOON,< 30 MM [...] the day after the procedure, use an pvov-ajd-naxoixa spray to numb your throat. Sucking on [...] occurs, please contact your Doctor. Please call [phone] before 8pm Mon-Fri with problems, questions or concerns. If you call after 8pm or on weekends, call the Hospital at [phone] and ask to speak to the Applications Support Specialist correctional counselor and the beveling machine operator will contact that person for [...] any problems. Where can you learn more? [facility] View your After Visit Summary and more online at [email or web address] If you would like to provide feedback about your hospital experience, please call the Office of Patient and Family Relations at . If you have received this After Visit Summary in error, please immediately return it in person to the department, or notify the [facility] Privacy Office by calling toll free at between the hours of 8AM and 5PM to arrange for our retrieval of the documents at no cost to you. Content Version: 12.2 ?? 2523-8647 [employer]. Care instructions adapted under license by [facility]. If you have questions about a medical condition or this instruction, always ask your healthcare professional. [employer] disclaims any warranty or liability for your [...] the day after the procedure, use an eljl-iti-epkcxut spray to numb your throat. Sucking on [...] occurs, please contact your Doctor. Please call [phone] before 8pm Mon-Fri with problems, questions or concerns. If you call after 8pm or on weekends, call the Hospital at [phone] and ask to speak to the Applications Support Specialist correctional counselor and the beveling machine operator will contact that person for you. When should you call for help? Call [phone] anytime you think you may need emergency [...] any problems. Where can you learn more? [facility] View your After Visit Summary and more online at [email or web address] If you would like to provide feedback about your hospital experience, please call the Office of Patient and Family Relations at . If you have received this After Visit Summary in error, please immediately return it in person to the department, or notify the [facility] Privacy Office by calling toll free at between the hours of 8AM and 5PM to arrange for our retrieval of the documents at no cost to you. Content Version: 12.2 ?? [id number] [employer]. Care instructions adapted under license by [facility]. If you have questions about a medical condition or this instruction, always ask your healthcare professional. [employer] disclaims any warranty or liability for your [...] meter kit. 1 each 0 12/14/2014 Insulin [place], Disposable, (BD INSULIN PEN NEEDLE UF MINI) [...] PM EDT Office Visit Cardiology at [address] [address] Milagros Hernandez MD [facility] [place] [address] Scheduled Procedures Name Priority Associated Diagnoses Date/Ti id EGD, UPPER GI ENDOSCOPY (WRV U 2.09) Peptic stricture of esophagus documented as of this encounter Procedures Procedure Name Priority Date/Time Associated Diagnosis Comments Up Gi Endoscopy, Ball Dil, 30Mm ([id number]) 03/30/2023 6:02 PM EST Peptic stricture of esophagus UPPER GI ENDOSCOPY Routine 03/30/2023 5: 58 PM EST documented in this encounter Results * UPPER GI ENDOSCOPY (03/30/2023 5:58 PM EST) UPPER GI ENDOSCOPY [facility] Endoscopy Procedure Date: 03/30/2023 5:58 PM ? Patient Name: Jennifer Irving ? Date of : 1960 ? Age: 62 ? Order #: [id number] ? Instrument Name: [id number] ? Procedure: ? Upper GI endoscopy Indications: ? Stenosis of the esophagus Providers: ? David Dejesus MD, Jennifer Howell ? Theodora Garibay, ? Pin Puller Referring MD: ?Ana Keith: ? Propofol per [...] PROVATION 03/30/2023 5:58 PM EST Ana Gillespie NETWORK ENGINEER GENERAL SURGICAL ORD ERABLES PROVATION documented in [...] CRNA) documented in this encounter Care Teams Social Media Assistant Relationship Specialty Start Date End Date Ana Gillespie APRN [address] [place] [address] PCP - General Family Medicine 02/03/19 documented as of this encounter
--- OUTSIDE RECORDS SUMMARY | 2024-02-29 21:27 | XMS_ITS | Encounter Summary ---
Author Organization [facility] [place] [address] Care Team Providers Care Field Checker Name Role Phone Ana Gillespie APRN Primary Care Provider [phone] Encounter Details Date Type Department Care Team [...] PM EDT Office Visit Cardiology at [address] [address] Milagros Hernandez MD [facility] [place] [address] Scheduled Procedures Name Priority Associated Diagnoses Date/Ti me EGD, UPPER GI ENDOSCOPY (WRV U 2.09) Peptic stricture of esophagus documented as of this encounter Visit Diagnoses Not on filedocumented in this encounter Care Teams Field Checker Relationship Specialty Start Date End Date Ana Gillespie APRN [address] [place] [address] PCP - General Family Medicine 02/03/19 documented as of this encounter
--- OUTSIDE RECORDS SUMMARY | 2024-02-29 21:27 | XMS_ITS | Encounter Summary ---
Author Organization [facility] Address [facility] [place] [address] Care Team Providers Care Coal Hauler Name Role Phone Ana Gillespie VAUGHN Primary Care Provider [phone] Reason for Referral * Diagnostic Test (Routine) - Closed Specialty Diagnoses / Procedures Referred By Esperanza rodríguez Referred To Contact Radiology Diagnoses Problem with gastrostomy tube Procedures IR G-Tube Check/Change Jaime Chavez MD [facility] [place] [address] [place] [address] Referral ID Status Reason Start Date Expiration Date V isits Requested Visits Authorized [id number] Closed Specialty Service Requested 05/09/2023 11/06/2024 1 1 Encounter Details Date Type Department Care Team (Late st Contact Info) Description 05/09/2023 [place] [address] Jaime Chavez MD [facility] [place] [address] Encounter for screening mammogram for breast cancer; [...] out for which they sought treatment at [facility]. A barba was placed into the tract. [...] IR G-Tube Check/Change 11/27/2022 Hang Cooper PA [facility] INTERVENTIONL RAD IR G-TUBE CHECK/CHANGE 03/10/2023 IR G-Tube Check/Change 03/10/2023 Geronimo Chambers DO [facility] INTERVENTIONL RAD IR G-TUBE CHECK/CHANGE 04/06/2023 IR G-Tube Check/Change 04/06/2023 Gavin Carrillo MD [facility] INTERVENTIONL RAD IR G-TUBE PLACEMENT 09/11/2022 IR G-Tube Placement 09/11/2022 Moustapha Hart MD [facility] INTERVENTIONL RAD IR SUTURE RELEASE 09/25/2022 IR Suture Release 09/25/2022 Yoselin Ghosh PA [facility] INTERVENTIONL RAD PERCUTANEOUS GASTROSTOMY N/A 09/11/2022 PERCUTANEOUS GASTROSTOMY performed by Aiden Flores MD at [facility] CATY PRO COLONOSCOPY, BIOPSY N/A 03/20/2016 COLONOSCOPY FLEXIBLE, WITH BX performed by David Dejesus MD at [facility] ENDOSCOPY PRO COLONOSCOPY, DIAGNOSTIC N/A 03/01/2020 COLONOSCOPY, DIAGNOSTIC performed by David Dejesus MD at [facility] ENDOSCOPY PRO ENDOSCOPIC US EXAM, ESOPH N/A 03/31/2022 UPPER EUS- ENDOSCOPIC ULTRASOUND performed by David Dejesus MD at [facility] ENDOSCOPY PRO UP GI ENDOSCOPY, BALL DIL, 30MM N/A 12/24/2022 EGD,WITH DILATION ESOPHAGUS WITH BALLOON,< 30 MM (WRVU 2.67) performed by David Dejesus [facility] ENDOSCOPY PRO UP GI ENDOSCOPY, BALL DIL, 30MM N/A 01/12/2023 EGD,WITH DILATION ESOPHAGUS WITH BALLOON,< 30 MM (WRVU 2.67) performed by David Dejesus [facility] ENDOSCOPY PRO UP GI ENDOSCOPY, BALL DIL, 30MM N/A 02/26/2023 EGD,WITH DILATION ESOPHAGUS WITH BALLOON,< 30 MM (WRVU 2.67) performed by David Dejesus [facility] ENDOSCOPY PRO UP GI ENDOSCOPY, BALL DIL, 30MM N/A 03/16/2023 EGD,WITH DILATION ESOPHAGUS WITH BALLOON,< 30 MM (WRVU 2.67) performed by David Dejesus [facility] ENDOSCOPY PRO UP GI ENDOSCOPY, BALL DIL, 30MM N/A 03/30/2023 EGD,WITH DILATION ESOPHAGUS WITH BALLOON,< 30 MM (WRVU 2.67) performed by David Dejesus [facility] ENDOSCOPY PRO UP GI ENDOSCOPY, BALL DIL, 30MM N/A 04/30/2023 EGD,WITH DILATION ESOPHAGUS WITH BALLOON,< 30 MM (WRVU 2.67) performed by David Dejesus [facility] ENDOSCOPY PRO UPPER GI ENDOSCOPY, BIOPSY N/A 04/03/2014 UPPER GASTROINTESTINAL ENDOSCOPY,WITH BIOPSY SINGLE OR MULTIPLE performed by David Dejesus [facility] ENDOSCOPY PRO UPPER GI ENDOSCOPY, BIOPSY N/A 03/20/2016 EGD WITH BIOPSY performed by David Dejesus MD at [facility] ENDOSCOPY PRO UPPER GI ENDOSCOPY, BIOPSY N/A 11/22/2018 EGD WITH BIOPSY (WRVU 2.49) performed by David Dejesus MD at [facility] ENDOSCOPY PRO UPPER GI ENDOSCOPY, BIOPSY N/A 03/01/2020 UPPER GASTROINTESTINAL ENDOSCOPY,WITH BIOPSY SINGLE OR MULTIPLE (WRVU 2.49) performed by David Dejesus MD at [facility] ENDOSCOPY PRO UPPER GI ENDOSCOPY, BIOPSY N/A 09/23/2021 EGD WITH BIOPSY (WRVU 2.49) performed by David Dejesus MD at [facility] ENDOSCOPY PRO UPPER GI ENDOSCOPY, BIOPSY N/A 03/31/2022 EGD WITH BIOPSY (WRVU 2.49) performed by David Dejesus MD at [facility] ENDOSCOPY PRO UPPER GI ENDOSCOPY, BIOPSY N/A 07/03/2022 EGD WITH BIOPSY (WRVU 2.49) performed by David Dejesus MD at [facility] ENDOSCOPY PRO UPPER GI ENDOSCOPY, DIAGNOSTIC N/A 04/03/2014 EGD, UPPER GI ENDOSCOPY performed by David Dejesus MD at [facility] ENDOSCOPY PRO UPPER GI ENDOSCOPY, DIAGNOSTIC N/A 03/01/2020 EGD, UPPER GI ENDOSCOPY performed by David Dejesus MD at [facility] ENDOSCOPY PRO UPPER GI ENDOSCOPY, DIAGNOSTIC N/A 09/09/2022 EGD, UPPER GI ENDOSCOPY (WRVU 2.09) performed by Ayo Russ MD at [facility] MAIN OR Medications: Current Outpatient [...] daily. 180 tablet 3 Blood Sugar Diagnostic ([employer] ULTRA TEST) Strip 1 each by Other [...] glucose meter kit. 1 each 0 Insulin [place], Disposable, (BD INSULIN PEN NEEDLE UF MINI) 31 x 3/16 Needle 1 Device by [facility] [...] PM EDT Office Visit Cardiology at [address] [address] Milagros Hernandez MD [facility] [place] [address] Scheduled Procedures Name Priority Associated Diagnoses Date/Ti [...] tube documented in this encounter Care Teams Coal Hauler Relationship Specialty Start Date End Date Ana Gillespie, VAUGHN [address] [place] [address] PCP - General Family Medicine 02/03/19 documented as of this encounter
--- OUTSIDE RECORDS SUMMARY | 2024-02-29 21:27 | XMS_ITS | Encounter Summary ---
Author Organization [facility] Address [facility] [place] [address] Care Team Providers Care Geriatric Nursing Assistant Name Role Phone Ana Gillespie VAUGHN Primary Care Provider [phone] Encounter Details Date Type Department Care Team (Latest Contact Info) Description 04/30/2023 1:29 PM EST - 04/30/2023 4:43 PM EST Hospital Encounter Gastroenterology at [facility] [place] [address] David Dejesus MD [facility] [place] [address] Discharge Disposition: Home Social History Tobacco Use [...] the day after the procedure, use an zhoa-nms-fsnbpyk spray to numb your throat. Sucking on [...] occurs, please contact your Doctor. Please call [phone] before 8pm Mon-Fri with problems, questions or concerns. If you call after 8pm or on weekends, call the Hospital at [phone] and ask to speak to the Manufacturing Technologist transportation maintenance supervisor and the rail transit operator will contact that person for you. When should you call for help? Call 131 anytime you think you may need emergency [...] more? Visit our health information library at [email or web address] You can also view health information on [employer], your personal patient account. Log in or sign uptoday. Enter J014 in the search box to learn more about Esophageal Dilation: What to Expect at Home. Current as of: December 18, 2018Content Version: 12.4 ?? [id number] [facility]. Care instructions adapted under license by [facility]. If you have questions about a medical condition or this instruction, always ask your healthcare professional. [facility] [facility] disclaims any warranty or liability for your [...] strips. 300 each 3 12/14/2014 Blood-Glucose Meter (SepatonTOUCH ULTRA2) KitIndications:Type 2 diabetes mellitus, uncontrolled by Other route. 1 = one blood glucose meter kit. 1 each 0 12/14/2014 Insulin [place], Disposable, (BD INSULIN PEN NEEDLE UF MINI) [...] PM EDT Office Visit Cardiology at [address] [address] Milagros Hernandez MD [facility] [place] [address] Scheduled Procedures Name Priority Associated Diagnoses Date/Ti al EGD, UPPER GI ENDOSCOPY (WRV U 2.09) Peptic stricture of esophagus documented as of this encounter Procedures Procedure Name Priority Date/Time Associated Diagnosis Comments POCT GLUCOSE Routine 04/30/2023 4:13 PM EST Up Gi Endoscopy, Ball Dil, 30Mm (50910) 04/30/2023 3:25 PM EST Peptic stricture of esophagus UPPER GI ENDOSCOPY Routine 04/30/2023 3: 14 PM EST POCT GLUCOSE Routine 04/30/2023 2:09 PM EST documented in this encounter Results * POCT Glucose (04/30/2023 4:13 PM EST) Glucose, POC 81 65 - 199 mg/dL [facility] Comment: Supplemental ranges: <140 mg/dL before meals <180 mg/dL all other times of the day Blood 04/30/2023 4:13 PM EST 04/30/2023 4:13 PM EST David Dejesus MD POINT OF CARE TEST ORDERABLES Performing Organization Address City/State/[facility] Co de Phone Number [facility] [place] [address] * UPPER GI ENDOSCOPY (04/30/2023 3:14 PM EST) [facility] UPPER GI ENDOSCOPY [facility] Endoscopy Procedure Date: 04/30/2023 3:14 PM ? Patient Name: Jennifer Irving ? N: [id number] ? Date of : 1960 ? Age: 62 ? Order #: [id number] ? Instrument Name: [id number] ? Procedure: ? Upper GI endoscopy Indications: [...] PROVATION 04/30/2023 3:14 PM EST Ana Gillespie WELDING TESTER GENERAL SURGICAL ORD ERABLES PROVATION * POCT Glucose (04/30/2023 2:09 PM EST) Glucose, POC 75 65 - 199 mg/dL [facility] Comment: Supplemental ranges: <140 mg/dL before meals <180 mg/dL all other times of the day Blood 04/30/2023 2:09 PM EST 04/30/2023 2:09 PM EST David Dejesus MD POINT OF CARE TEST ORDERABLES [facility] [place] [address] documented in this encounter Visit Diagnoses Not [...] documented in this encounter Care Teams Geriatric Nursing Assistant Relationship Specialty Start Date End Date Ana Gillespie APRN [address] [place] [address] PCP - General Family Medicine 02/03/19 documented as of this encounter
--- OUTSIDE RECORDS SUMMARY | 2024-02-29 21:27 | XMS_ITS | Encounter Summary ---
Author Organization [facility] [place] [address] Care Team Providers Care Head Refrigerating Engineer Name Role Phone Ana Gillespie LEGAL TRANSCRIBER Primary Care Provider [phone] Encounter Details Date Type Department Care Team (Late st Contact Info) Description 03/01/2023 Telephone Gastroenterology at [facility] [place] [address] Parris Maravilla Social History Tobacco Use Types [...] - 03/01/2023 4:20 PM EDT Jennifer Irving [id number] Diagnosis/Indication: stricture dilation Please review patient chart [...] your procedure. Who will likely be your stud driver for the procedure? *Please Verify the [...] PM EDT Office Visit Cardiology at [address] [address] Milagros Hernandez MD [facility] [place] [address] Scheduled Procedures Name Priority Associated Diagnoses Date/Ti me EGD, UPPER GI ENDOSCOPY (WRV U 2.09) Peptic stricture of esophagus documented as of this encounter Visit Diagnoses Not on filedocumented in this encounter Care Teams Head Refrigerating Engineer Relationship Specialty Start Date End Date Ana Gillespie APRN [address] [place] [address] PCP - General Family Medicine 02/03/19 documented as of this encounter
--- OUTSIDE RECORDS SUMMARY | 2024-02-29 21:27 | XMS_ITS | Encounter Summary ---
Author Organization [facility] Address [facility] [place] [address] Care Team Providers Care Relocation Coordinator Name Role Phone Ana Gillespie VAUGHN Primary Care Provider [phone] Encounter Details Date Type Department Care Team (Late st Contact Info) Description 04/30/2023 3:00 PM EST - 04/30/2023 3:45 PM EST Surgery Gastroenterology at [facility] [place] [address] David Dejesus MD [facility] [place] [address] EGD,WITH DILATION ESOPHAGUS WITH BALLOON,< 30 MM [...] the day after the procedure, use an kmlm-pou-ipnvniq spray to numb your throat. Sucking on [...] occurs, please contact your Doctor. Please call [phone] before 8pm Mon-Fri with problems, questions or concerns. If you call after 8pm or on weekends, call the Hospital at [phone] and ask to speak to the Trust Manager Assistant front desk team member and the railway signal operator will contact that person for you. When should you call for help? Call 530 anytime you think you may need emergency [...] more? Visit our health information library at [email or web address] You can also view health information on [employer], your personal patient account. Log in or sign uptoday. Enter J014 in the search box to learn more about Esophageal Dilation: What to Expect at Home. Current as of: December 18, 2018Content Version: 12.4 ?? [id number] [employer]. Care instructions adapted under license by [facility]. If you have questions about a medical condition or this instruction, always ask your healthcare professional. [employer] disclaims any warranty or liability for your [...] meter kit. 1 each 0 12/14/2014 Insulin [place], Disposable, (BD INSULIN PEN NEEDLE UF MINI) [...] PM EDT Office Visit Cardiology at [address] [address] Milagros Hernandez MD [facility] [address] Scheduled Procedures Name Priority Associated Diagnoses Date/Ti me EGD, UPPER GI ENDOSCOPY (WRV U 2.09) Peptic stricture of esophagus documented as of this encounter Procedures Procedure Name Priority Date/Time Associated Diagnosis Comments POCT GLUCOSE Routine 04/30/2023 4:13 PM EST Up Gi Endoscopy, Ball Dil, 30Mm (95282) 04/30/2023 3:25 PM EST Peptic stricture of esophagus UPPER GI ENDOSCOPY Routine 04/30/2023 3: 14 PM EST POCT GLUCOSE Routine 04/30/2023 2:09 PM EST documented in this encounter Results * POCT Glucose (04/30/2023 4:13 PM EST) Glucose, POC 81 65 - 199 mg/dL [facility] Comment: Supplemental ranges: <140 mg/dL before meals <180 mg/dL all other times of the day Blood 04/30/2023 4:13 PM EST 04/30/2023 4:13 PM EST David Dejesus MD POINT OF CARE TEST ORDERABLES Performing Organization Address City/State/[facility] Co de Phone Number [facility] [place] [address] * UPPER GI ENDOSCOPY (04/30/2023 3:14 PM EST) [facility] UPPER GI ENDOSCOPY [facility] Endoscopy Procedure Date: 04/30/2023 3:14 PM ? Patient Name: Jennifer Irving ? Date of : 1960 ? Age: 62 ? Order #: [id number] ? Instrument Name: [id number] ? Procedure: ? Upper GI endoscopy Indications: [...] PROVATION 04/30/2023 3:14 PM EST Ana Gillespie COMPASS OPERATOR GENERAL SURGICAL ORD ERABLES PROVATION * POCT Glucose (04/30/2023 2:09 PM EST) Glucose, POC 75 65 - 199 mg/dL [facility] Comment: Supplemental ranges: <140 mg/dL before meals <180 mg/dL all other times of the day Blood 04/30/2023 2:09 PM EST 04/30/2023 2:09 PM EST David Dejesus MD POINT OF CARE TEST ORDERABLES [facility] [place] [address] documented in this encounter Visit Diagnoses Diagnosis [...] RN) documented in this encounter Care Teams Relocation Coordinator Relationship Specialty Start Date End Date Ana Gillespie APRN [address] [place] [address] PCP - General Family Medicine 02/03/19 documented as of this encounter
--- OUTSIDE RECORDS SUMMARY | 2024-02-29 21:27 | XMS_ITS | Encounter Summary ---
Author Organization [facility] [place] [address] Care Team Providers Care Investigative Assistant Name Role Phone Ana Gillespie VAUGHN Primary Care Provider [phone] Encounter Details Date Type Department Care Team (Late st Contact Info) Description 04/19/2023 Telephone [place] [address] Meka Vera Social History Tobacco Use Types [...] PM EDT Office Visit Cardiology at [address] [phone] Milagros Hernandez MD [facility] [place] [address] Scheduled Procedures Name Priority Associated Diagnoses Date/Ti me EGD, UPPER GI ENDOSCOPY (WRV U 2.09) Peptic stricture of esophagus documented as of this encounter Visit Diagnoses Not on filedocumented in this encounter Care Teams Investigative Assistant Relationship Specialty Start Date End Date Ana Gillespie APRN [address] [place] [address] PCP - General Family Medicine 02/03/19 documented as of this encounter
--- OUTSIDE RECORDS SUMMARY | 2024-02-29 21:27 | XMS_ITS | Encounter Summary ---
Author Organization [facility] [place] [address] Care Team Providers Care Auto Body Shop Manager Name Role Phone Ana Gillespie APRN Primary Care Provider [phone] Encounter Details Date Type Department Care Team (Late Contact Info) Description 03/30/2023 Orders [place] [phone] David Dejesus MD [facility] [place] [address] Peptic stricture of esophagus Social History Tobacco [...] PM EDT Office Visit Cardiology at [address] [phone] Milagros Hernandez MD [facility] [place] [address] Scheduled Orders Name Type Priority Associated Diagnoses [...] esophagus documented in this encounter Care Teams Auto Body Shop Manager Relationship Specialty Start Date End Date Ana Gillespie APRN [address] [place] [address] PCP - General Family Medicine 02/03/19 documented as of this encounter
--- OUTSIDE RECORDS SUMMARY | 2024-02-29 21:27 | XMS_ITS | Encounter Summary ---
Author Organization [facility] [place] [address] Care Team Providers Care Electromechanical Assembly Technician Name Role Phone Ana Gillespie APRN Primary Care Provider [phone] Reason for Visit * Reason Onset Date Comments Questions 03/02/2023 Med changes at [facility] visit Encounter Details Date Type Department Care Team (Late st Contact Info) Description 03/02/2023 Telephone Cardiology at [address] [phone] Chela Walsh RN Questions (Med changes at [...] the hospital over the past weekend at [facility] for pneumonia. While there they restarted [...] PM EDT Office Visit Cardiology at [address] [address] Milagros Hernandez MD [facility] [place] [address] Scheduled Procedures Name Priority Associated Diagnoses Date/Ti ne EGD, UPPER GI ENDOSCOPY (WRV U 2.09) Peptic stricture of esophagus documented as of this encounter Visit Diagnoses Not on filedocumented in this encounter Care Teams Electromechanical Assembly Technician Relationship Specialty Start Date End Date Ana Gillespie APRN [address] [place] [address] PCP - General Family Medicine 02/03/19 documented as of this encounter
--- OUTSIDE RECORDS SUMMARY | 2024-02-29 21:27 | XMS_ITS | Encounter Summary ---
[place] [address] Care Team Providers Care Wrapper Sorter Name Role Phone Ana Gillespie VAUGHN Primary Care Provider [phone] Encounter Details Date Type Department Care Team (Late st Contact Info) Description 05/18/2023 Telephone [place] [phone] Chiquita James, RN Social History Tobacco Use [...] PM EDT Office Visit Cardiology at [address] [phone] Milagros Hernandez MD [facility] [place] [address] Scheduled Procedures Name Priority Associated Diagnoses Date/Ti me EGD, UPPER GI ENDOSCOPY (WRV U 2.09) Peptic stricture of esophagus documented as of this encounter Visit Diagnoses Not on filedocumented in this encounter Care Teams Wrapper Sorter Relationship Specialty Start Date End Date Ana Gillespie APRN [address] [place] [address] PCP - General Family Medicine 02/03/19 documented as of this encounter
--- OUTSIDE RECORDS SUMMARY | 2024-02-29 21:27 | XMS_ITS | Encounter Summary ---
Author Organization [facility] [place] [address] Care Team Providers Care Grid Casting Machine Operator Helper Name Role Phone Ana Gillespie APRN Primary Care Provider [phone] Encounter Details Date Type Department Care Team [...] PM EDT Office Visit Cardiology at [address] [address] Milagros Hernandez MD [facility] [place] [address] Scheduled Procedures Name Priority Associated Diagnoses Date/Ti me EGD, UPPER GI ENDOSCOPY (WRV U 2.09) Peptic stricture of esophagus documented as of this encounter Visit Diagnoses Not on filedocumented in this encounter Care Teams Grid Casting Machine Operator Helper Relationship Specialty Start Date End Date Ana Gillespie APRN [address] [place] [address] PCP - General Family Medicine 02/03/19 documented as of this encounter
--- OUTSIDE RECORDS SUMMARY | 2024-02-29 21:27 | XMS_ITS | Encounter Summary ---
Author Organization [facility] Marly petersen [place] [id number] Care Team Providers Care Horses Or Mules Teamster Name Role Phone Ana Gillespie APRN Primary Care Provider [phone] Encounter Details Date Type Department Care Team (Late st Contact Info) Description 04/30/2023 3:26 PM EST Anesthesia [place] [phone] Leigh Carter MD [facility] DR ANESTHESIOLOGY DEPT [place] [phone] Cristine Gomez CRNA [facility] [place] [address] Anesthesia Record Procedure Summary Procedure Name Responsible [...] questions and acknowledgement of understanding Susy Juárez ROLLER PRINT TENDER 1550 Procedure Stop 1555 Break/Relief Out 1557 [...] Procedure Summary Date: 04/30/23 Room / Location: [facility] ENDO 2 / [facility] ENDOSCOPY Anesthesia Start: 1526 Anesthesia Stop: 1600 Procedure: EGD,WITH DILATION ESOPHAGUS WITH BALLOON,< 30 MM (WRVU 2.67) (Trunk) Diagnosis: Peptic stricture of esophagus (peptic striture - schedule in two weeks) Surgeons: David Dejesus MD Responsible Provider: Leigh Carter MD Anesthesia Type: general ASA Status: 3 All Anesthesia Providers: Anesthesiologist: Leigh Carter MD ROLLER PRINT TENDER: Tapan Simpson CRNA Vitals Value Taken Time [...] IR G-Tube Check/Change 11/27/2022 Hang Cooper PA [facility] INTERVENTION[facility] RAD ??? IR G-TUBE CHECK/CHANGE 03/10/2023 IR G-Tube Check/Change 03/10/2023 Geornimo Chambers, [facility] INTERVENTIONL RAD ??? IR G-TUBE CHECK/CHANGE 04/06/2023 IR G-Tube Check/Change 04/06/2023 Gavin Carrillo MD [facility] INTERVENTIONL RAD ??? IR G-TUBE PLACEMENT 09/11/2022 IR G-Tube Placement 09/11/2022 Moustapha Hart MD [facility] INTERVENTIONL RAD ??? IR SUTURE RELEASE 09/25/2022 IR Suture Release 09/25/2022 Yoselin Ghosh PA [facility] INTERVENTIONL RAD ??? PERCUTANEOUS GASTROSTOMY N/A 09/11/2022 PERCUTANEOUS GASTROSTOMY performed by Aiden Flores MD at [facility] CATY ??? PRO COLONOSCOPY, BIOPSY N/A 03/20/2016 COLONOSCOPY FLEXIBLE, WITH BX performed by David Dejesus MD at [facility] ENDOSCOPY ??? PRO COLONOSCOPY, DIAGNOSTIC N/A 03/01/2020 COLONOSCOPY, DIAGNOSTIC performed by David Dejesus MD at [facility] ENDOSCOPY ??? PRO ENDOSCOPIC US EXAM, ESOPH N/A 03/31/2022 UPPER EUS- ENDOSCOPIC ULTRASOUND performed by David Dejesus MD at [facility] ENDOSCOPY ??? PRO UP GI ENDOSCOPY, BALL DIL, 30MM N/A 12/24/2022 EGD,WITH DILATION ESOPHAGUS WITH BALLOON,< 30 MM (WRVU 2.67) performed by David Dejesus MDat [facility] ENDOSCOPY ??? PRO UP GI ENDOSCOPY, BALL DIL, 30MM N/A 01/12/2023 EGD,WITH DILATION ESOPHAGUS WITH BALLOON,< 30 MM (WRVU 2.67) performed by David Dejesus [facility] ENDOSCOPY ??? PRO UP GI ENDOSCOPY, BALL DIL, 30MM N/A 02/26/2023 EGD,WITH DILATION ESOPHAGUS WITH BALLOON,< 30 MM (WRVU 2.67) performed by David Dejesus [facility] ENDOSCOPY ??? PRO UP GI ENDOSCOPY, BALL DIL, 30MM N/A 03/16/2023 EGD,WITH DILATION ESOPHAGUS WITH BALLOON,< 30 MM (WRVU 2.67) performed by David Dejesus [facility] ENDOSCOPY ??? PRO UP GI ENDOSCOPY, BALL DIL, 30MM N/A 03/30/2023 EGD,WITH DILATION ESOPHAGUS WITH BALLOON,< 30 MM (WRVU 2.67) performed by David Dejesus [facility] ENDOSCOPY ??? PRO UPPER GI ENDOSCOPY, BIOPSY N/A 04/03/2014 UPPER GASTROINTESTINAL ENDOSCOPY,WITH BIOPSY SINGLE OR MULTIPLE performed by David Dejesus [facility] ENDOSCOPY ??? PRO UPPER GI ENDOSCOPY, BIOPSY N/A 03/20/2016 EGD WITH BIOPSY performed by David Dejesus MD at [facility] ENDOSCOPY ??? PRO UPPER GI ENDOSCOPY, BIOPSY N/A 11/22/2018 EGD WITH BIOPSY (WRVU 2.49) performed by David Dejesus MD at [facility] ENDOSCOPY ??? PRO UPPER GI ENDOSCOPY, BIOPSY N/A 03/01/2020 UPPER GASTROINTESTINAL ENDOSCOPY,WITH BIOPSY SINGLE OR MULTIPLE (WRVU 2.49) performed by David Dejesus MD at [facility] ENDOSCOPY ??? PRO UPPER GI ENDOSCOPY, BIOPSY N/A 09/23/2021 EGD WITH BIOPSY (WRVU 2.49) performed by David Dejesus MD at [facility] ENDOSCOPY ??? PRO UPPER GI ENDOSCOPY, BIOPSY N/A 03/31/2022 EGD WITH BIOPSY (WRVU 2.49) performed by David Dejesus MD at [facility] ENDOSCOPY ??? PRO UPPER GI ENDOSCOPY, BIOPSY N/A 07/03/2022 EGD WITH BIOPSY (WRVU 2.49) performed by David Dejesus MD at [facility] ENDOSCOPY ??? PRO UPPER GI ENDOSCOPY, DIAGNOSTIC N/A 04/03/2014 EGD, UPPER GI ENDOSCOPY performed by David Dejesus MD at [facility] ENDOSCOPY ??? PRO UPPER GI ENDOSCOPY, DIAGNOSTIC N/A 03/01/2020 EGD, UPPER GI ENDOSCOPY performed by David Dejesus MD at [facility] ENDOSCOPY ??? PRO UPPER GI ENDOSCOPY, DIAGNOSTIC N/A 09/09/2022 EGD, UPPER GI ENDOSCOPY (WRVU 2.09) performed by Ayo Russ MD at [facility] MAIN OR Social History Tobacco Use [...] risks discussed with patient. Plan discussed with ROLLER PRINT TENDER and attending. Anesthesia Screening documented in this encounter Plan of Treatment Upcoming Encounters Date Type Department Care Team (Late st Contact Info) Description 03/10/2024 4:00 PM EDT Office Visit Cardiology at [address] [place] [address] Milagros Hernandez MD [facility] [place] [address] Scheduled Procedures Name Priority Associated Diagnoses Date/Ti [...] mg documented in this encounter Care Teams Horses Or Mules Teamster Relationship Specialty Start Date End Date Ana Gillespie APRN [address] [place] [address] PCP - General Family Medicine 02/03/19 documented as of this encounter
--- OUTSIDE RECORDS SUMMARY | 2024-02-29 21:28 | XMS_ITS | Encounter Summary ---
Author Organization Count Includes [facility] Address [facility] [place] [address] Care Team Providers Care Fur Liner Name Role Phone Ana Gillespie APRN Primary Care Provider [phone] Encounter Details Date Type Department Care Team (Late st Contact Info) Description 11/12/2022 11:30 AM EDT Office Visit [place] [phone] Dixie Tadeo MD [facility] [place] [address] Type 2 diabetes mellitus with diabetic polyneuropathy, [...] mg 250mg x4 per TF can [] 7216-1274 mg [] 5397-2732 mg [] Above 1500 mg Medications: Current [...] glucose meter kit. 1 each 0 Insulin [place], Disposable, (BD INSULIN PEN NEEDLE UF MINI) [...] 30 ng/ml and above. Was started on Hdwwariwzfwtvz39,000 U Q weekly when inpatient. C. Will [...] PM EDT Office Visit Cardiology at [address] [address] Milagros Hernandez MD [facility] [place] [address] Scheduled Procedures Name Priority Associated Diagnoses Date/Ti me EGD, UPPER GI ENDOSCOPY (WRV U 2.09) Peptic stricture of esophagus documented as of this encounter Visit Diagnoses Diagnosis Type 2 diabetes mellitus with diabetic polyneuropathy, with long-term current use of insulin Osteoporosis, unspecified osteoporosis type, unspecified pathological fracture presence documented in this encounter Care Teams Fur Liner Relationship Specialty Start Date End Date Ana Gillespie APRN [address] [place] [address] PCP - General Family Medicine 02/03/19 documented as of this encounter
--- OUTSIDE RECORDS SUMMARY | 2024-02-29 21:28 | XMS_ITS | Encounter Summary ---
Author Organization [facility] Address [facility] [place] [address] Care Team Providers Care Vehicle Window Tinter Name Role Phone Ana Gillespie APRN Primary Care Provider [phone] Reason for Visit * Reason Onset Date Comments Disability Paperwork 10/09/2022 Completed L arsenio Term Care Medicaid Intake Interview with Jennifer over the phone with Nery Potter from [place] [employer] [facility] Encounter Details Date Type Department Care Team (Late st Contact Info) Description 10/09/2022 Telephone [place] [address] Alicia Gillis Disability Paperwork (Completed Human Resources Technician Care Medicaid Intake Interview with Jennifer over the phone with Nery Potter from [place] [employer] [facility] ) Social History Tobacco Use Types Packs/Day [...] PM EDT Office Visit Cardiology at [address] [phone] Milagros Hernandez MD [facility] [place] [address] Scheduled Procedures Name Priority Associated Diagnoses Date/Ti me EGD, UPPER GI ENDOSCOPY (WRV U 2.09) Peptic stricture of esophagus documented as of this encounter Visit Diagnoses Not on filedocumented in this encounter Care Teams Vehicle Window Tinter Relationship Specialty Start Date End Date Ana Gillespie APRN [address] [place] [address] PCP - General Family Medicine 02/03/19 documented as of this encounter
--- OUTSIDE RECORDS SUMMARY | 2024-02-29 21:28 | XMS_ITS | Encounter Summary ---
Author Organization [facility] Address [facility] [place] [address] Care Team Providers Care Tar Heat Exchanger Cleaner Name Role Phone Ana Gillespie APRN Primary Care Provider [phone] Encounter Details Date Type Department Care Team (Late st Contact Info) Description 11/23/2022 [place] [phone] Fannie Conde PA [facility] [place] [address] Social History Tobacco Use Types Packs/Day Years [...] PM EDT Office Visit Cardiology at [address] [address] Milagros Hernandez MD [facility] [place] [address] Scheduled Procedures Name Priority Associated Diagnoses Date/Ti me EGD, UPPER GI ENDOSCOPY (WRV U 2.09) Peptic stricture of esophagus documented as of this encounter Visit Diagnoses Diagnosis Neuroleptic-induced parkinsonism Secondary Parkinsonism documented in this encounter Care Teams Tar Heat Exchanger Cleaner Relationship Specialty Start Date End Date Ana Gillespie APRN [address] [place] [address] PCP - General Family Medicine 02/03/19 documented as of this encounter
--- OUTSIDE RECORDS SUMMARY | 2024-02-29 21:28 | XMS_ITS | Encounter Summary ---
Author Organization [facility] [place] [address] Care Team Providers Care Bark Fitter Name Role Phone Ana Gillespie VAUGHN Primary Care Provider [phone] Encounter Details Date Type Department Care Team (Late st Contact Info) Description 12/21/2022 Telephone [place] [phone] Jessica Beckman Social History Tobacco Use Types [...] AM EDT Called pt to [facility] MAC EGD 12/24 at 11:30am per Dr Dejesus-had to [facility] documented in this encounter Plan of Treatment Upcoming Encounters Date Type Department Care Team (Late st Contact Info) Description 03/10/2024 4:00 PM EDT Office Visit Cardiology at [address] [phone] Milagros Hernandez MD [facility] [place] [address] Scheduled Procedures Name Priority Associated Diagnoses Date/Ti me EGD, UPPER GI ENDOSCOPY (WRV U 2.09) Peptic stricture of esophagus documented as of this encounter Visit Diagnoses Not on filedocumented in this encounter Care Teams Bark Fitter Relationship Specialty Start Date End Date Ana Gillespie APRN [address] [place] [address] PCP - General Family Medicine 02/03/19 documented as of this encounter
--- OUTSIDE RECORDS SUMMARY | 2024-02-29 21:28 | XMS_ITS | Encounter Summary ---
[place] [address] Care Team Providers Care Machinist Wood Name Role Phone Ana Gillespie APRN Primary Care Provider [phone] Reason for Referral * Consultation (Urgent) - Closed Specialty Diagnoses / Procedures Referred By Contac t Referred To Contact Cardiology Diagnoses Cardiac LV ejection fraction 30-35% Ana Gillespie APRN [address] [place] [address] [facility] [address] [place] [phone] Referral ID Status Reason Start Date Expiration Date V isits Requested Visits Authorized [id number] Closed Consult, Test & Treat PCP Updated and/or Approved 11/23/2022 11/23/2023 12 12 Encounter Details Date Type Department Care Team (Latest Contact Info) Description 11/23/2022 Transcribe Orders eDH Incoming Referrals [phone] Ana Gillespie APRN [address] [place] [address] Cardiac LV ejection fraction 30-35% Social History [...] PM EDT Office Visit Cardiology at [address] [address] Milagros Hernandez MD [facility] [place] [address] Scheduled Procedures Name Priority Associated Diagnoses Date/Ti [...] system documented in this encounter Care Teams Machinist Wood Relationship Specialty Start Date End Date Ana Gillespie APRN [address] [place] [address] PCP - General Family Medicine 02/03/19 documented as of this encounter
--- OUTSIDE RECORDS SUMMARY | 2024-02-29 21:28 | XMS_ITS | Encounter Summary ---
Author Organization [facility] Include [address] [facility] [address] Care Team Providers Care Er Nurse Name Role Phone Ana Gillespie APRN Primary Care Provider [phone] Encounter Details Date Type Department Care Team [...] PM EDT Office Visit Cardiology at [address] [phone] Milagros Hernandez MD [facility] [address] Scheduled Procedures Name Priority Associated Diagnoses Date/Ti me EGD, UPPER GI ENDOSCOPY (WRV U 2.09) Peptic stricture of esophagus documented as of this encounter Visit Diagnoses Not on filedocumented in this encounter Care Teams Er Nurse Relationship Specialty Start Date End Date Ana Gillespie APRN [address] [place] [address] PCP - General Family Medicine 02/03/19 documented as of this encounter
--- OUTSIDE RECORDS SUMMARY | 2024-02-29 21:28 | XMS_ITS | Encounter Summary ---
Author Organization [facility] [place] [address] Care Team Providers Care Boiler Repairman Name Role Phone Ana Gillespie CONTINUOUS IMPROVEMENT LEAD Primary Care Provider [phone] Encounter Details Date Type Department Care Team (Late st Contact Info) Description 12/10/2022 Telephone [place] [address] Jessica Beckman Social History Tobacco [...] PM EDT Office Visit Cardiology at [address] [phone] Milagros Hernandez MD [facility] [place] [address] Scheduled Procedures Name Priority Associated Diagnoses Date/Ti me EGD, UPPER GI ENDOSCOPY (WRV U 2.09) Peptic stricture of esophagus documented as of this encounter Visit Diagnoses Not on filedocumented in this encounter Care Teams Boiler Repairman Relationship Specialty Start Date End Date Ana Gillespie APRN [address] [place] [address] PCP - General Family Medicine 02/03/19 documented as of this encounter
--- OUTSIDE RECORDS SUMMARY | 2024-02-29 21:28 | XMS_ITS | Encounter Summary ---
Author Organization [facility] Address [facility] [place] [address] Care Team Providers Care Sap Analyst Name Role Phone Ana Gillespie APRN Primary Care Provider [phone] Encounter Details Date Type Department Care Team (Late st Contact Info) Description 02/26/2023 2:00 PM EDT - 02/26/2023 2:30 PM EDT Surgery [place] [phone] David Dejesus MD [facility] [place] [address] EGD,WITH DILATION ESOPHAGUS WITH BALLOON,< 30 MM [...] the day after the procedure, use an hift-spx-swglmtm spray to numb your throat. Sucking on [...] occurs, please contact your Doctor. Please call [phone] before 8pm Mon-Fri with problems, questions or concerns. If you call after 8pm or on weekends, call the Hospital at [phone] and ask to speak to the Wireless Communications Engineer addictions counselor and the tube machine operator helper will contact that person for you. When should you call for help? Call [phone] anytime you think you may need emergency [...] Where can you learn more? [facility] View your After Visit Summary and more online at [email or web address] If you would like to provide feedback [...] cost to you. Content Version: 12.2 ?? 9414-7146 [employer]. Care instructions adapted under license by [facility]. If you have questions about a medical condition or this instruction, always ask your healthcare professional. [employer] disclaims any warranty or liability for your [...] meter kit. 1 each 0 12/14/2014 Insulin [place], Disposable, (BD INSULIN PEN NEEDLE UF MINI) [...] glucose meter kit. 1 each 0 Insulin [place], Disposable, (BD INSULIN PEN NEEDLE UF MINI) [...] PM EDT Office Visit Cardiology at [address] [address] Milagros Hernandez MD [facility] [place] [address] Scheduled Procedures Name Priority Associated Diagnoses Date/Ti me EGD, UPPER GI ENDOSCOPY (WRV U 2.09) Peptic stricture of esophagus documented as of this encounter Procedures Procedure Name Priority Date/Time Associated Diagnosis Comments Up Gi Endoscopy, Ball Dil, 30Mm (61714) 02/26/2023 2:09 PM EDT Peptic stricture of esophagus POCT GLUCOSE Routine 02/26/2023 1:28 PM EDT documented in this encounter Results * POCT Glucose (02/26/2023 1:28 PM EDT) Glucose, POC 71 65 - 199 mg/dL [facility] Comment: Supplemental ranges: <140 mg/dL before meals <180 mg/dL all other times of the day Blood 02/26/2023 1:28 PM EDT 02/26/2023 1:28 PM EDT David Dejesus MD POINT OF CARE TEST ORDERABLES [facility] [place] [address] documented in this encounter Visit Diagnoses Diagnosis [...] RN) documented in this encounter Care Teams Sap Analyst Relationship Specialty Start Date End Date Ana Gillespie APRN [address] [place] [address] PCP - General Family Medicine 02/03/19 documented as of this encounter
--- OUTSIDE RECORDS SUMMARY | 2024-02-29 21:28 | XMS_ITS | Encounter Summary ---
Author Organization [facility] [place] [address] Care Team Providers Care City Carrier Name Role Phone Ana Gillespie VAUGHN Primary Care Provider [phone] Encounter Details Date Type Department Care Team (Late Contact Info) Description 10/29/2022 Telephone [place] [phone] Elsie Erickson APRN [facility] [place] [address] Social History Tobacco Use Types Packs/Day Years [...] PM EDT Office Visit Cardiology at [address] [phone] Milagros Hernandez MD [facility] [place] [address] Scheduled Procedures Name Priority Associated Diagnoses Date/Ti me EGD, UPPER GI ENDOSCOPY (WRV U 2.09) Peptic stricture of esophagus documented as of this encounter Visit Diagnoses Not on filedocumented in this encounter Care Teams City Carrier Relationship Specialty Start Date End Date Ana Gillespie APRN [address] [place] [address] PCP - General Family Medicine 02/03/19 documented as of this encounter
--- OUTSIDE RECORDS SUMMARY | 2024-02-29 21:28 | XMS_ITS | Encounter Summary ---
Author Organization [facility] Address [facility] [place] [address] Care Team Providers Care Group Work Program Aide Name Role Phone Ana Gillespie APRN Primary Care Provider [phone] Encounter Details Date Type Department Care Team (Late st Contact Info) Description 01/13/2023 Telephone [place] [phone] Parris Maravilla Social History Tobacco Use Types [...] PM EDT Office Visit Cardiology at [address] [phone] Milagros Hernandez MD [facility] [place] [address] Scheduled Procedures Name Priority Associated Diagnoses Date/Ti me EGD, UPPER GI ENDOSCOPY (WRV U 2.09) Peptic stricture of esophagus documented as of this encounter Visit Diagnoses Not on filedocumented in this encounter Care Teams Group Work Program Aide Relationship Specialty Start Date End Date Ana Gillespie APRN [address] [place] [address] PCP - General Family Medicine 02/03/19 documented as of this encounter
--- OUTSIDE RECORDS SUMMARY | 2024-02-29 21:28 | XMS_ITS | Encounter Summary ---
[place] [address] Care Team Providers Care Credit Collection Associate Name Role Phone Ana Gillespie APRN Primary Care Provider [phone] Reason for Referral * Consultation (Routine) - Closed Specialty Diagnoses / Procedures Referred By Esperanza t Referred To Contact Diagnoses Gastrojejunostomy tube status Ana Gillespie APRN [address] [place] [address] [facility] [address] [place] [phone] Referral ID Status Reason Start Date Expiration Date V isits Requested Visits Authorized [id number] Closed Continuity of Care PCP Updated and/or Approved 11/17/2022 11/17/2023 12 12 Encounter Details Date Type Department Care Team (Latest Contact Info) Description 11/17/2022 Transcribe Orders eDH Incoming Referrals [phone] Ana Gillespie APRN [address] [place], [place] [id number] Gastrojejunostomy tube status Social History Tobacco Use [...] PM EDT Office Visit Cardiology at [address] [phone] Milagros Hernandez MD [facility] [place] [address] Scheduled Procedures Name Priority Associated Diagnoses Date/Ti me EGD, UPPER GI ENDOSCOPY (WRV U 2.09) Peptic stricture of esophagus Scheduled Referrals Name Type Priority Associated Diagnoses Orde r Schedule Referral to Nutrition Services Outpatient Referral Routine Gastrojejunostomy tube status Ordered: 11/17/2022 documented as of this encounter Visit Diagnoses Diagnosis Gastrojejunostomy tube status Intestinal bypass or anastomosis status documented in this encounter Care Teams Credit Collection Associate Relationship Specialty Start Date End Date Ana Gillespie APRN [address] [place] [address] PCP - General Family Medicine 02/03/19 documented as of this encounter
--- OUTSIDE RECORDS SUMMARY | 2024-02-29 21:28 | XMS_ITS | Encounter Summary ---
Author Organization [facility] Address [facility] [place] [address] Care Team Providers Care Environmental Services Supervisor Name Role Phone Ana Gillespie APRN Primary Care Provider [phone] Encounter Details Date Type Department Care Team (Late st Contact Info) Description 02/26/2023 2:07 PM EDT Anesthesia [place] [phone] Rio Aceves MD [facility] [place] [address] Adrianna Barron MD [facility] [place] [address] Anesthesia Record Procedure Summary Procedure Name Responsible [...] Procedure Summary Date: 02/26/23 Room / Location: [facility] ENDO 2 / [facility] ENDOSCOPY Anesthesia Start: 1407 Anesthesia Stop: 1439 Procedure: EGD,WITH DILATION ESOPHAGUS WITH BALLOON,< 30 MM (WRVU 2.67) (Trunk) Diagnosis: Peptic stricture of esophagus (peptic stricture dilation - within two weeks) Surgeons: David Dejesus MD Responsible Provider: Rio Aceves MD Anesthesia Type: MAC ASA Status: 3 All Anesthesia Providers: Anesthesiologist: Rio Aceves MD ROTO MIXER OPERATOR: Tapan Simpson CRNA Vitals Value Taken Time BP 115/50 02/26/23 1503 Temp Pulse Resp 16 02/26/23 1435 SpO2 95 % 02/26/23 1505 Pain Level 0 02/26/23 1435 Vitals shown include unfiled device data. Patient Location: PACU/[facility] Level of Consciousness: Awake and Alert Pain [...] IR G-Tube Check/Change 11/27/2022 Hang Cooper PA [facility] INTERVENTIONL RAD ??? IR G-TUBE PLACEMENT 09/11/2022 IR G-Tube Placement 09/11/2022 Moustapha Hart MD [facility] INTERVENTIONL RAD ??? IR SUTURE RELEASE 09/25/2022 IR Suture Release 09/25/2022 Yoselin Ghosh PA [facility] INTERVENTIONL RAD ??? PERCUTANEOUS GASTROSTOMY N/A 09/11/2022 PERCUTANEOUS GASTROSTOMY performed by Aiden Flores MD at [facility] CATY ??? PRO COLONOSCOPY, BIOPSY N/A 03/20/2016 COLONOSCOPY FLEXIBLE, WITH BX performed by David Dejesus MD at [facility] ENDOSCOPY ??? PRO COLONOSCOPY, DIAGNOSTIC N/A 03/01/2020 COLONOSCOPY, DIAGNOSTIC performed by David Dejesus MD at [facility] ENDOSCOPY ??? PRO ENDOSCOPIC US EXAM, ESOPH N/A 03/31/2022 UPPER EUS- ENDOSCOPIC ULTRASOUND performed by David Dejesus MD at [facility] ENDOSCOPY ??? PRO UP GI ENDOSCOPY, BALL DIL, 30MM N/A 12/24/2022 EGD,WITH DILATION ESOPHAGUS WITH BALLOON,< 30 MM (WRVU 2.67) performed by David Dejesus MDat [facility] ENDOSCOPY ??? PRO UP GI ENDOSCOPY, BALL DIL, 30MM N/A 01/12/2023 EGD,WITH DILATION ESOPHAGUS WITH BALLOON,< 30 MM (WRVU 2.67) [facility]?? PRO UPPER GI ENDOSCOPY, BIOPSY N/A 04/03/2014 UPPER GASTROINTESTINAL ENDOSCOPY,WITH BIOPSY SINGLE OR MULTIPLE performed by David [facility]jesus [facility]at [facility] ENDOSCOPY ??? PRO UPPER GI ENDOSCOPY, BIOPSY N/A 03/20/2016 EGD WITH BIOPSY performed by David Dejesus MD at [facility] ENDOSCOPY ??? PRO UPPER GI ENDOSCOPY, BIOPSY N/A 11/22/2018 EGD WITH BIOPSY (WRVU 2.49) performed by David Dejesus MD at [facility] ENDOSCOPY ??? PRO UPPER GI ENDOSCOPY, BIOPSY N/A 03/01/2020 UPPER GASTROINTESTINAL ENDOSCOPY,WITH BIOPSY SINGLE OR MULTIPLE (WRVU 2.49) performed by David Dejesus MD at [facility] ENDOSCOPY ??? PRO UPPER GI ENDOSCOPY, BIOPSY N/A 09/23/2021 EGD WITH BIOPSY (WRVU 2.49) performed by David Dejesus MD at [facility] ENDOSCOPY ??? PRO UPPER GI ENDOSCOPY, BIOPSY N/A 03/31/2022 EGD WITH BIOPSY (WRVU 2.49) performed by David Dejesus MD at [facility] ENDOSCOPY ??? PRO UPPER GI ENDOSCOPY, BIOPSY N/A 07/03/2022 EGD WITH BIOPSY (WRVU 2.49) performed by David Dejesus MD at [facility] ENDOSCOPY ??? PRO UPPER GI ENDOSCOPY, DIAGNOSTIC N/A 04/03/2014 EGD, UPPER GI ENDOSCOPY performed by David Dejesus MD at [facility] ENDOSCOPY ??? PRO UPPER GI ENDOSCOPY, DIAGNOSTIC N/A 03/01/2020 EGD, UPPER GI ENDOSCOPY performed by David Dejesus MD at [facility] ENDOSCOPY ??? PRO UPPER GI ENDOSCOPY, DIAGNOSTIC N/A 09/09/2022 EGD, UPPER GI ENDOSCOPY (WRVU 2.09) performed by Ayo Russ MD at [facility] MAIN OR Social History Tobacco [...] with patient and spouse. Plan discussed with ROTO MIXER OPERATOR and attending. Anesthesia Screening documented in this encounter Plan of Treatment Upcoming Encounters Date Type Department Care Team (Late st Contact Info) Description 03/10/2024 4:00 PM EDT Office Visit Cardiology at [address] [phone] Milagros Hernandez MD [facility] [place] [address] Scheduled Procedures Name Priority Associated Diagnoses Date/Ti [...] hr documented in this encounter Care Teams Environmental Services Supervisor Relationship Specialty Start Date End Date Ana Gillespie APRN [address] [place] [address] PCP - General Family Medicine 02/03/19 documented as of this encounter
--- OUTSIDE RECORDS SUMMARY | 2024-02-29 21:28 | XMS_ITS | Encounter Summary ---
Author Organization [facility] Address [facility] [place] [address] Care Team Providers Care Associate Product Integrity Engineer Name Role Phone Ana Gillespie FIELD OPERATIONS FARM MANAGER Primary Care Provider Encounter Details Date Type Department Care Team (Late st Contact Info) Description 11/18/2022 Orders [place] [phone] Dixie Tadeo MD [facility] [address] Social History Tobacco Use Types Packs/Day Years [...] PM EDT Office Visit Cardiology at [address] [phone] Milagros Hernandez MD [facility] [place] [address] Scheduled Procedures Name Priority Associated Diagnoses Date/Ti me EGD, UPPER GI ENDOSCOPY (WRV U 2.09) Peptic stricture of esophagus documented as of this encounter Visit Diagnoses Not on filedocumented in this encounter Care Teams Associate Product Integrity Engineer Relationship Specialty Start Date End Date Ana Gillespie APRN [address] [place] [address] PCP - General Family Medicine 02/03/19 documented as of this encounter
--- OUTSIDE RECORDS SUMMARY | 2024-02-29 21:28 | XMS_ITS | Encounter Summary ---
Author Organization [facility] [place] [address] Care Team Providers Care Furnace Door Tender Name Role Phone Ana Gillespie APRN Primary Care Provider [phone] Encounter Details Date Type Department Care Team [...] PM EDT Office Visit Cardiology at [address] [address] Milagros Hernandez MD [facility] [place] [address] Scheduled Procedures Name Priority Associated Diagnoses Date/Ti me EGD, UPPER GI ENDOSCOPY (WRV U 2.09) Peptic stricture of esophagus documented as of this encounter Visit Diagnoses Not on filedocumented in this encounter Care Teams Furnace Door Tender Relationship Specialty Start Date End Date Ana Gillespie APRN [address] [place] [address] PCP - General Family Medicine 02/03/19 documented as of this encounter
--- OUTSIDE RECORDS SUMMARY | 2024-02-29 21:28 | XMS_ITS | Encounter Summary ---
Author Organization [facility] [place] [address] Care Team Providers Care Dust Mop Maker Name Role Phone Ana Gillespie APRN Primary Care Provider [phone] Encounter Details Date Type Department Care Team (Late Contact Info) Description 02/26/2023 Orders [place] [phone] David Dejesus MD [facility] [place] [address] Peptic stricture of esophagus Social History Tobacco [...] PM EDT Office Visit Cardiology at [address] [phone] Milagros Hernandez MD [facility] [place] [address] Scheduled Orders Name Type Priority Associated Diagnoses [...] esophagus documented in this encounter Care Teams Dust Mop Maker Relationship Specialty Start Date End Date Ana Gillespie APRN [address] [place] [address] PCP - General Family Medicine 02/03/19 documented as of this encounter
--- OUTSIDE RECORDS SUMMARY | 2024-02-29 21:28 | XMS_ITS | Encounter Summary ---
Author Organization [facility] [place] [address] Care Team Providers Care Front End Developer Name Role Phone Ana Gillespie HIGH SCHOOL TEACHER Primary Care Provider [phone] Encounter Details Date Type Department Care Team (Late st Contact Info) Description 03/01/2023 Telephone [place] [address] Parris Maravilla Social History Tobacco [...] PM EDT Office Visit Cardiology at [address] [phone] Milagros Hernandez MD [facility] [place] [address] Scheduled Procedures Name Priority Associated Diagnoses Date/Ti me EGD, UPPER GI ENDOSCOPY (WRV U 2.09) Peptic stricture of esophagus documented as of this encounter Visit Diagnoses Not on filedocumented in this encounter Care Teams Front End Developer Relationship Specialty Start Date End Date Ana Gillespie APRN [address] [place] [address] PCP - General Family Medicine 02/03/19 documented as of this encounter
--- OUTSIDE RECORDS SUMMARY | 2024-02-29 21:28 | XMS_ITS | Encounter Summary ---
Author Organization [facility] Address [facility] [place] [address] Care Team Providers Care Cardiac Cath Lab Manager Name Role Phone Ana Gillespie APRN Primary Care Provider [phone] Encounter Details Date Type Department Care Team (Late st Contact Info) Description 01/12/2023 8:06 AM EDT Anesthesia [place] [address] Bogdan Song MD [facility] [place] [address] Cristine Gomez CRNA [facility] [place] [address] Anesthesia Record Procedure Summary Procedure Name Responsible [...] dorsal arch vein (top of foot), left; ttjq-cyv-ldezjm catheter system; Anatomical Landmarks; US Not Used; [...] Procedure Summary Date: 01/12/23 Room / Location: [facility] ENDO 2 / [facility] ENDOSCOPY Anesthesia Start: 805 Anesthesia Stop: 919 Procedure: EGD,WITH DILATION ESOPHAGUS WITH BALLOON,< 30 MM (WRVU 2.67) (Trunk) Diagnosis: Peptic stricture of esophagus (peptic stricture - needs dilation under anestheszi in 10-14 days) Surgeons: David Dejesus MD Responsible Provider: Bogdan Song MD Anesthesia Type: MAC ASA Status: 2 All Anesthesia Providers: Anesthesiologist: Bogdan Song MD CAKE WRINGER: Chiquis Burnham CRNA Student Nurse Pediatric Speech Language Pathologist: Irwin Novak Vitals Value Taken Time BP [...] y.o. female. Procedure(s): EGD, [facility] Patient Active Problem List [...] MM (WRVU 2.67) performed by David Dejesus [facility] ENDOSCOPY ??? PRO UPPER GI ENDOSCOPY, BIOPSY N/A 04/03/2014 UPPER GASTROINTESTINAL ENDOSCOPY,WITH BIOPSY SINGLE OR MULTIPLE performed by David Dejesus [facility] ENDOSCOPY ??? PRO UPPER GI [...] ENDOSCOPY performed by Dvaid Dejesus MD at [facility] [...] risks discussed with patient. Plan discussed with CAKE WRINGER and attending. Anesthesia Screening documented in this encounter Plan of Treatment Upcoming Encounters Date Type Department Care Team (Late st Contact Info) Description 03/10/2024 4:00 PM EDT Office Visit Cardiology at [address] [address] Milagros Hernandez MD [facility] [place] [address] Scheduled Procedures Name Priority Associated Diagnoses Date/Ti [...] mg documented in this encounter Care Teams Cardiac Cath Lab Manager Relationship Specialty Start Date End Date Ana Gillespie APRN [address] [place] [address] PCP - General Family Medicine 02/03/19 documented as of this encounter
--- OUTSIDE RECORDS SUMMARY | 2024-02-29 21:28 | XMS_ITS | Encounter Summary ---
Author Organization [facility] Address [facility] [place] [address] Care Team Providers Care Reproductive Healthcare Assistant Name Role Phone Ana Gillespie VAUGHN Primary Care Provider [phone] Encounter Details Date Type Department Care Team (Late st Contact Info) Description 01/12/2023 7:30 AM EDT - 01/12/2023 8:00 AM EDT [place] [phone] David Dejesus MD [facility] [place] [address] EGD,WITH DILATION ESOPHAGUS WITH BALLOON,< 30 MM [...] the day after the procedure, use an tfme-otn-fkbkexa spray to numb your throat. Sucking on [...] occurs, please contact your Doctor. Please call [phone] before 8pm Mon-Fri with problems, questions or concerns. If you call after 8pm or on weekends, call the Hospital at [phone] and ask to speak to the Film Rental Clerk push button switch assembler and the smokehouse operator will contact that person for you. [...] After Visit Summary and more online at [email or web address] If you would like to provide feedback about your hospital experience, please call the Office of Patient and Family Relations at . If you have received this After Visit Summary in error, please immediately return it in person to the department, or notify the [facility] Privacy Office by calling toll free at between the hours of 8AM and 5PM to arrange for our retrieval of the documents at no cost to you. Content Version: 12.2 ?? 3154-1560 [employer]. Care instructions adapted under license by [facility]. If you have questions about a medical condition or this instruction, always ask your healthcare professional. [employer] disclaims any warranty or liability for your [...] strips. 300 each 3 12/14/2014 Blood-Glucose Meter (PoolamiTOUCH ULTRA2) KitIndications:Type 2 diabetes mellitus, uncontrolled by Other route. 1 = one blood glucose meter kit. 1 each 0 12/14/2014 Insulin [place], Disposable, (BD INSULIN PEN NEEDLE UF MINI) [...] PM EDT Office Visit Cardiology at [address] [address] Milagros Hernandez MD [facility] [place] [address] Scheduled Procedures Name Priority Associated Diagnoses Date/Ti me EGD, UPPER GI ENDOSCOPY (WRV U 2.09) Peptic stricture of esophagus documented as of this encounter Procedures Procedure Name Priority Date/Time Associated Diagnosis Comments Up Gi Endoscopy, Ball Dil, 30Mm (27473) 01/12/2023 8:06 AM EDT Peptic stricture of esophagus POCT GLUCOSE Routine 01/12/2023 7:31 AM EDT documented in this encounter Results * POCT Glucose (01/12/2023 7:31 AM EDT) Glucose, POC 115 65 - 199 mg/dL [facility] Comment: Supplemental ranges: <140 mg/dL before meals <180 mg/dL all other times of the day Blood 01/12/2023 7:31 AM EDT 01/12/2023 7:31 AM EDT David Dejesus MD POINT OF CARE TEST ORDERABLES [facility] [place] [address] documented in this encounter Visit Diagnoses Diagnosis [...] CRNA) documented in this encounter Care Teams Reproductive Healthcare Assistant Relationship Specialty Start Date End Date Ana Gillespie APRN [address] [place] [address] PCP - General Family Medicine 02/03/19 documented as of this encounter
--- OUTSIDE RECORDS SUMMARY | 2024-02-29 21:28 | XMS_ITS | Encounter Summary ---
Author Organization [facility] [place] [address] Care Team Providers Care Low Pressure Boiler Operator Name Role Phone Ana Gillespie BIOASSAYIST Primary Care Provider [phone] Reason for Visit * Reason Onset Date Comments Medication Refill 11/13/2022 Encounter Details Date Type Department Care Team (Late st Contact Info) Description 11/13/2022 Ref[place] [address] Alyce Vogt RN Social History Tobacco Use [...] PM EDT Office Visit Cardiology at [address] [phone] Milagros Hernnadez MD [facility] [place] [address] Scheduled Procedures Name Priority Associated Diagnoses Date/Ti me EGD, UPPER GI ENDOSCOPY (WRV U 2.09) Peptic stricture of esophagus documented as of this encounter Visit Diagnoses Not on filedocumented in this encounter Care Teams Low Pressure Boiler Operator Relationship Specialty Start Date End Date Ana Gillespie APRN [address] [place] [address] PCP - General Family Medicine 02/03/19 documented as of this encounter
--- OUTSIDE RECORDS SUMMARY | 2024-02-29 21:28 | XMS_ITS | Encounter Summary ---
Author Organization [facility] [place] [address] Care Team Providers Care Manager Qa Name Role Phone Ana Gillespie VAUGHN Primary Care Provider [phone] Encounter Details Date Type Department Care Team (Late st Contact Info) Description 12/10/2022 [facility] [place] [address] Jessica Beckman Social History Tobacco Use Types [...] - 12/10/2022 10:00 AM EDT Jennifer Irving [id number] Diagnosis/Indication: Dysphagia, Follow-up of Farrell's esophagus Please [...] a/an Upper Endoscopy before? Yes: Date 09/10/22 [facility] If yes, did you have any problems [...] your procedure. Who will likely be your services delivery driver for the procedure? *Please Verify [...] PM EDT Office Visit Cardiology at [address] [address] Milagros Hernandez MD [facility] [place] [address] Scheduled Procedures Name Priority Associated Diagnoses Date/Ti me EGD, UPPER GI ENDOSCOPY (WRV U 2.09) Peptic stricture of esophagus documented as of this encounter Visit Diagnoses Not on filedocumented in this encounter Care Teams Manager Qa Relationship Specialty Start Date End Date Ana Gillespie APRN [address] [place] [address] PCP - General Family Medicine 02/03/19 documented as of this encounter
--- OUTSIDE RECORDS SUMMARY | 2024-02-29 21:28 | XMS_ITS | Encounter Summary ---
Author Organization [facility] Address [facility] [place] [address] Care Team Providers Care Manager Wellness Name Role Phone Ana Gillespie APRN Primary Care Provider [phone] Encounter Details Date Type Department Care Team (Latest Contact Info) Description 02/26/2023 12:03 PM EDT - 02/26/2023 3:41 PM EDT Hospital Encounter [place] [phone] David Dejesus MD [facility] [place] [place] [address] Discharge Disposition: Home Social History Tobacco Use [...] the day after the procedure, use an ltod-hwt-qvtujfm spray to numb your throat. Sucking on [...] occurs, please contact your Doctor. Please call [phone] before 8pm Mon-Fri with problems, questions or concerns. If you call after 8pm or on weekends, call the Hospital at [phone] and ask to speak to the Costing Analyst monogram technician and the backup operator will contact that person for you. [...] Where can you learn more? [facility] View your After Visit Summary and more online at [email or web address] If you would like to provide feedback about your hospital experience, please call the Office of Patient and Family Relations at . If you have received this After Visit Summary in error, please immediately return it in person to the department, or notify the [facility] Privacy Office by calling toll free at between the hours of 8AM and 5PM to arrange for our retrieval of the documents at no cost to you. Content Version: 12.2 ?? 6517-7568 [employer]. Care instructions adapted under license by [facility]. If you have questions about a medical condition or this instruction, always ask your healthcare professional. [employer] disclaims any warranty or liability for your [...] meter kit. 1 each 0 12/14/2014 Insulin [place], Disposable, (BD INSULIN PEN NEEDLE UF MINI) [...] glucose meter kit. 1 each 0 Insulin [place]lyn, Disposable, (BD INSULIN PEN NEEDLE UF MINI) [...] PM EDT Office Visit Cardiology at [address] [address] Milagros Hernandez MD [facility] [place] [address] Scheduled Procedures Name Priority Associated Diagnoses Date/Ti me EGD, UPPER GI ENDOSCOPY (WRV U 2.09) Peptic stricture of esophagus documented as of this encounter Procedures Procedure Name Priority Date/Time Associated Diagnosis Comments Up Gi Endoscopy, Ball Dil, 30Mm ([id number]) 02/26/2023 2:09 PM EDT Peptic stricture of esophagus POCT GLUCOSE Routine 02/26/2023 1:28 PM EDT documented in this encounter Results * POCT Glucose (02/26/2023 1:28 PM EDT) Glucose, POC 71 65 - 199 mg/dL [facility] Comment: Supplemental ranges: <140 mg/dL before meals <180 mg/dL all other times of the day Blood 02/26/2023 1:28 PM EDT 02/26/2023 1:28 PM EDT David Dejesus MD POINT OF CARE TEST ORDERABLES [facility] [place] [address] documented in this encounter Visit Diagnoses Not [...] documented in this encounter Care Teams Manager Wellness Relationship Specialty Start Date End Date Ana Gillespie APRN [address] [place] [address] PCP - General Family Medicine 02/03/19 documented as of this encounter
--- OUTSIDE RECORDS SUMMARY | 2024-02-29 21:28 | XMS_ITS | Encounter Summary ---
Author Organization [facility] Address [facility] [place] [address] Care Team Providers Care Residue Furnace Operator Name Role Phone Ana Gillespie VAUGHN Primary Care Provider [phone] Reason for Visit * Reason Onset Date [...] Contact Info) Description 12/08/2022 Telephone [place] [phone] Elsie Erickson APRN [facility] [place] [address] Medication Refill (Jennifer is out of her [...] PM EDT Office Visit Cardiology at [address] [phone] Milagros Hernandez MD [facility] [place] [address] Scheduled Procedures Name Priority Associated Diagnoses Date/Ti me EGD, UPPER GI ENDOSCOPY (WRV U 2.09) Peptic stricture of esophagus documented as of this encounter Visit Diagnoses Not on filedocumented in this encounter Care Teams Residue Furnace Operator Relationship Specialty Start Date End Date Ana Gillespie APRN [address] [place] [address] PCP - General Family Medicine 02/03/19 documented as of this encounter
--- OUTSIDE RECORDS SUMMARY | 2024-02-29 21:28 | XMS_ITS | Encounter Summary ---
Author Organization [facility] [address] Care Team Providers Care Feltmaker Name Role Phone Ana Gillespie APRN Primary Care Provider [phone] Encounter Details Date Type Department Care Team (Late st Contact Info) Description 12/08/2022 Telephone [place] [phone] Alyce Vogt RN Social History Tobacco Use [...] 12/08/2022 1:08 PM EDT Copied from CRM #[id number]. Topic: Specialty Dept CRMs - Generic Call [...] PM EDT Office Visit Cardiology at [address] [address] Milagros Hernandez MD [facility] [place] [address] Scheduled Procedures Name Priority Associated Diagnoses Date/Ti me EGD, UPPER GI ENDOSCOPY (WRV U 2.09) Peptic stricture of esophagus documented as of this encounter Visit Diagnoses Not on filedocumented in this encounter Care Teams Feltmaker Relationship Specialty Start Date End Date Ana Gillespie APRN [address] [place] [address] PCP - General Family Medicine 02/03/19 documented as of this encounter
--- OUTSIDE RECORDS SUMMARY | 2024-02-29 21:28 | XMS_ITS | Encounter Summary ---
Author Organization [facility] Address [facility] [place] [address] Care Team Providers Care Feed Project Engineer Name Role Phone Ana Gillespie POLE FRAMER Primary Care Provider [phone] Reason for Visit * Reason Onset Date Comments Medication Refill 10/22/2022 Encounter Details Date Type Department Care Team (Late st Contact Info) Description 10/22/2022 Refill [place] [phone] David Dejesus MD [facility] [place] [address] Social History Tobacco Use Types Packs/Day Years [...] PM EDT Office Visit Cardiology at [address] [phone] Milagros Hernandez MD [facility] [place] [address] Scheduled Procedures Name Priority Associated Diagnoses Date/Ti me EGD, UPPER GI ENDOSCOPY (WRV U 2.09) Peptic stricture of esophagus documented as of this encounter Visit Diagnoses Not on filedocumented in this encounter Care Teams Feed Project Engineer Relationship Specialty Start Date End Date Ana Gillespie APRN [address] [place] [address] PCP - General Family Medicine 02/03/19 documented as of this encounter
--- OUTSIDE RECORDS SUMMARY | 2024-02-29 21:28 | XMS_ITS | Encounter Summary ---
[place] [address] Care Team Providers Care Legal Writing Professor Name Role Phone Ana Gillespie VAUGHN Primary Care Provider Encounter Details Date Type Department Care Team (Late Contact Info) Description 01/14/2023 Telephone [place] [address] Juice Maxwell RN Social History [...] PM EDT Office Visit Cardiology at [address] [address] Milagros Hernandez MD [facility] [place] [address] Scheduled Procedures Name Priority Associated Diagnoses Date/Ti me EGD, UPPER GI ENDOSCOPY (WRV U 2.09) Peptic stricture of esophagus documented as of this encounter Visit Diagnoses Not on filedocumented in this encounter Care Teams Legal Writing Professor Relationship Specialty Start Date End Date Ana Gillespie APRN [address] [place] [address] PCP - General Family Medicine 02/03/19 documented as of this encounter
--- OUTSIDE RECORDS SUMMARY | 2024-02-29 21:28 | XMS_ITS | Encounter Summary ---
Author Organization [facility] Address [facility] [place] [address] Care Team Providers Care Ged Instructor Name Role Phone Ana Gillespie VAUGHN Primary Care Provider [phone] Encounter Details Date Type Department Care Team (Late st Contact Info) Description 12/24/2022 12:00 PM EDT - 12/24/2022 12:30 PM EDT Surgery [place] [phone] David Dejesus MD [facility] [place] [address] EGD,WITH DILATION ESOPHAGUS WITH BALLOON,< 30 MM [...] 180 tablet 3 10/20/2021 Blood Sugar Diagnostic (Delta ID ULTRA TEST) StripIndications:Typ e 2 diabetes mellitus, [...] meter kit. 1 each 0 12/14/2014 Insulin [place], Disposable, (BD INSULIN PEN NEEDLE UF MINI) 31 x 07/23 NeedleIndications:Di abetes mellitus type 2, uncontrolled 1 Device by [facility] [...] glucose meter kit. 1 each 0 Insulin [place], Disposable, (BD INSULIN PEN NEEDLE UF MINI) 31 x 3/16 Needle 1 Device by Mis.(Non-Drug; Combo Route) route 3 times daily as needed. 100 each 11 PHYSICAL EXAM: Blood pressure 110/57, pulse 62, temperature 36.2 ??C (97.2 ??F), temperature source Tympanic, [id number] %. GEN: Alert, cooperative. Pleasant. 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 Patient Name: Jennifer Irving ? Date of : 1960 ? Age: 62 ? Order #: [id number] ? Instrument Name: [id number] ? Procedure: ? Upper GI endoscopy Indications: [...] Glucose, POC 123 65 - 199 mg/dL [facility] Comment: Supplemental ranges: <140 mg/dL before meals <180 mg/dL all other times of the day Blood 12/24/2022 11:0 2 AM EDT 12/24/2022 11:02 AM EDT David Dejesus MD POINT OF CARE TEST ORDERABLES Performing Organization Address City/[facility] Co de Phone Number [facility] [place] [address] documented in this encounter Visit Diagnoses Diagnosis [...] CRNA) documented in this encounter Care Teams Ged Instructor Relationship Specialty Start Date End Date Ana Gillespie APRN [address] [place] [address] PCP - General Family Medicine 02/03/19 documented as of this encounter
--- OUTSIDE RECORDS SUMMARY | 2024-02-29 21:28 | XMS_ITS | Encounter Summary ---
Author Organization Counts Include [facility] Beds [facility] Address [facility] [place] [address] Care Team Providers Care City Planning Engineer Name Role Phone Ana Gillespie VAUGHN Primary Care Provider [phone] Encounter Details Date Type Department Care Team (Late st Contact Info) Description 12/21/2022 Telephone [place] [phone] Jessica Beckman Social History Tobacco Use Types [...] PM EDT Office Visit Cardiology at [address] [phone] Milagros Hernandez MD [facility] [place] [address] Scheduled Procedures Name Priority Associated Diagnoses Date/Ti me EGD, UPPER GI ENDOSCOPY (WRV U 2.09) Peptic stricture of esophagus documented as of this encounter Visit Diagnoses Not on filedocumented in this encounter Care Teams City Planning Engineer Relationship Specialty Start Date End Date Ana Gillespie APRN [address] [place] [address] PCP - General Family Medicine 02/03/19 documented as of this encounter
--- OUTSIDE RECORDS SUMMARY | 2024-02-29 21:28 | XMS_ITS | Encounter Summary ---
Author Organization [facility] Address [facility] [place] [address] Care Team Providers Care Town Administrator Name Role Phone Jose MiguelAna VAUGHN Primary Care Provider [phone] Encounter Details Date Type Department Care Team (Late st Contact Info) Description 10/06/2022 Telephone [place] [phone] Elsie Erickson APRN [facility] [place] [place] [address] Social History Tobacco Use Types Packs/Day Years [...] not had tube feeds since last week, [facility] having computer system issues so unable to ship supplies. Campos has been using Ensure boluses 2 x daily as he was directed. He has not noted elevation of her blood sugars with this. BGs in 120s-140s. [facility] once he has this back. He has no questions and we will check back in the next few days. documented in this encounter Plan of Treatment Upcoming Encounters Date Type Department Care Team (Late st Contact Info) Description 03/10/2024 4:00 PM EDT Office Visit Cardiology at [address] [address] Milagros Heranndez MD [facility] [place] [address] Scheduled Procedures Name Priority Associated Diagnoses Date/Ti me EGD, UPPER GI ENDOSCOPY (WRV U 2.09) Peptic stricture of esophagus documented as of this encounter Visit Diagnoses Not on filedocumented in this encounter Care Teams Town Administrator Relationship Specialty Start Date End Date Ana Gillespie APRN [address] [place] [address] PCP - General Family Medicine 02/03/19 documented as of this encounter
--- OUTSIDE RECORDS SUMMARY | 2024-02-29 21:28 | XMS_ITS | Encounter Summary ---
Author Organization Formerly [facility] Address [facility] [place] [address] Care Team Providers Care School Lunch Monitor Name Role Phone Ana Gillespie APRN Primary Care Provider Reason for Visit * Consultation (Urgent) - Closed Specialty Diagnoses / Procedures Referred By Esperanza t Referred To Contact Cardiology Diagnoses Cardiac LV ejection fraction 30-35% Ana Gillespie APRN [address] [place] [address] [facility] [address] [place] [phone] Referral ID Status Reason Start Date Expiration Date V isits Requested Visits Authorized [id number] Closed Consult, Test & Treat PCP Updated and/or Approved 11/23/2022 11/23/2023 12 12 Encounter Details Date Type Department Care Team (Latest Contact Info) Description 01/15/2023 11:20 AM EDT Office Visit Cardiology at [address] [phone] Milagros Hernandez MD [facility] [place] [address] Stress-induced cardiomyopathy (Primary Dx); HFrEF (heart failure [...] from the original note were not included. [facility] [place] [phone] CARDIOLOGY OUTPATIENT NOTE PRIMARY CARE PROVIDER: Ana [...] glucose meter kit. 1 each 0 Insulin [place], Disposable, (BD INSULIN PEN NEEDLE UF MINI) 31 x 3/16 Needle 1 Device by [facility] [...] putting in new L hip replacement at [facility] next week due to inadequate healing form [...] 450 QTC Calculated (Bezet) 426 Calculated P [place] 55 Calculated R [place] 56 Calculated T [place] 49 INTERPRETATION Sinus bradycardia Low voltage QRS [...] Sinus bradycardia, low voltage, otherwise normal TTE ([facility], 11/20/22): TTE (08/19/22): Interpretation Summary -Left ventricular [...] personal interpretation of testing results, medication reconciliation, [id number] interview, examination and counseling of the patient, coordination of care and documentation of the above. Thank you for the opportunity to participate in this patient's cardiovascular care. All questions were answered and I look forward to the next visit. Milagros Hernandez MD Cardiovascular Medicine [facility] 01/15/2023 documented in this encounter Plan of Treatment Upcoming Encounters Date Type Department Care Team (Late st Contact Info) Description 03/10/2024 4:00 PM EDT Office Visit Cardiology at [address] [address] Milagros Hernandez MD [facility] [place] [address] Scheduled Procedures Name Priority Associated Diagnoses Date/Ti [...] (Bezet) 426 ms MUSE SYSTEM Calculated P [place] 55 degrees MUSE SYSTEM Calculated R [place] 56 degrees MUSE SYSTEM Calculated T [place] 49 degrees MUSE SYSTEM INTERPRETATION Sinus bradycardia [...] fraction) documented in this encounter Care Teams School Lunch Monitor Relationship Specialty Start Date End Date Ana Gillespie APRN [address] [place] [address] PCP - General Family Medicine 02/03/19 documented as of this encounter
--- OUTSIDE RECORDS SUMMARY | 2024-02-29 21:28 | XMS_ITS | Encounter Summary ---
Author Organization [facility] [place] [address] Care Team Providers Care Pharmacy Helper Name Role Phone Ana Gillespie APRN Primary Care Provider [phone] Encounter Details Date Type Department Care Team (Late Contact Info) Description 12/24/2022 Orders [place] [phone] David Dejesus MD [facility] [place] [address] Peptic stricture of esophagus Social History Tobacco [...] PM EDT Office Visit Cardiology at [address] [phone] Milagros Hernandez MD [facility] [place] [address] Scheduled Orders Name Type Priority Associated Diagnoses [...] documented in this encounter Care Teams Pharmacy Helper Relationship Specialty Start Date End Date Ana Gillespie APRN [address] [place] [address] PCP - General Family Medicine 02/03/19 documented as of this encounter
--- OUTSIDE RECORDS SUMMARY | 2024-02-29 21:28 | XMS_ITS | Encounter Summary ---
Author Organization [facility] Address [facility] [place] [address] Care Team Providers Care Fire Chief'S Aide Name Role Phone Ana Gillespie VAUGHN Primary Care Provider [phone] Encounter Details Date Type Department Care Team (Latest Contact Info) Description 12/24/2022 9:38 AM EDT - 12/24/2022 1:43 PM EDT Hospital Encounter [place] [phone] David Dejesus MD [facility] [place] [address] Discharge Disposition: Home Social History Tobacco Use [...] 180 tablet 3 10/20/2021 Blood Sugar Diagnostic ([employer] ULTRA TEST) StripIndications:Typ e 2 diabetes mellitus, [...] meter kit. 1 each 0 12/14/2014 Insulin [place], Disposable, (BD INSULIN PEN NEEDLE UF MINI) [...] glucose meter kit. 1 each 0 Insulin [place], Disposable, (BD INSULIN PEN NEEDLE UF MINI) 31 x 3/16 Needle 1 Device by Misc.(Non-Drug; Combo Route) route 3 times daily as needed. 100 each 11 PHYSICAL EXAM: Blood pressure 110/57, pulse 62, temperature 36.2 ??C (97.2 ??F), temperature source Tympanic, ByA353 %. GEN: Alert, cooperative. Pleasant. In NAD [...] PM EDT Office Visit Cardiology at [address] [address] Milagros eHrnandez MD [facility] [place] [address] Scheduled Procedures Name Priority Associated Diagnoses Date/Ti me EGD, UPPER GI ENDOSCOPY (WRV U 2.09) Peptic stricture of esophagus documented as of this encounter Procedures Procedure Name Priority Date/Time Associated Diagnosis Comments Up Gi Endoscopy, Rick Chavez, 30Mm (14662) 12/24/2022 11:56 AM EDT Farrell's esophagus without dysplasia UPPER GI ENDOSCOPY Routine 12/24/2022 11 :46 AM EDT POCT GLUCOSE Routine 12/24/2022 11:02 AM EDT documented in this encounter Results * UPPER GI ENDOSCOPY (12/24/2022 11:46 AM EDT) UPPER GI ENDOSCOPY [facility] Endoscopy Procedure Date: 12/24/2022 11:46 AM ? Patient Name: Jennifer Irving ? Date of : 1960 ? Age: 62 ? Order #: [id number] ? Instrument Name: [id number] ? Procedure: ? Upper GI endoscopy Indications: [...] GENERAL SURGICAL ORD ERABLES Performing Organization Address City/[facility] Co de Phone Number PROVATION * POCT Glucose (12/24/2022 11:02 AM EDT) Glucose, POC 123 65 - 199 mg/dL [facility] Comment: Supplemental ranges: <140 mg/dL before meals <180 mg/dL all other times of the day Blood 12/24/2022 11:0 2 AM EDT 12/24/2022 11:02 AM EDT David Dejesus MD POINT OF CARE TEST ORDERABLES Performing Organization Address City/[facility] Co de Phone Number [facility] [place] [address] documented in this encounter Visit Diagnoses Not [...] CRNA) documented in this encounter Care Teams Fire Chief'S Aide Relationship Specialty Start Date End Date Ana Gillespie APRN [address] [place] [address] PCP - General Family Medicine 02/03/19 documented as of this encounter
--- OUTSIDE RECORDS SUMMARY | 2024-02-29 21:28 | XMS_ITS | Encounter Summary ---
Author Organization [facility] Address [facility] [place] [address] Care Team Providers Care Lace Stripper Name Role Phone Ana Gillespie VAUGHN Primary Care Provider [phone] Encounter Details Date Type Department Care Team (Latest Contact Info) Description 01/12/2023 6:17 AM EDT - 01/12/2023 10:54 AM EDT Hospital Encounter [place] [address] David Dejesus MD [facility] [place] [address] Discharge Disposition: Home Social History Tobacco Use [...] the day after the procedure, use an uijf-giu-yzlzbbn spray to numb your throat. Sucking on [...] occurs, please contact your Doctor. Please call [phone] before 8pm Mon-Fri with problems, questions or concerns. If you call after 8pm or on weekends, call the Hospital at [phone] and ask to speak to the Humane Agent identification technician and the cutting torch operator will contact that person for you. [...] Where can you learn more? [facility] View your After Visit Summary and more online at [email or web address] If you would like to provide feedback [...] cost to you. Content Version: 12.2 ?? [id number] [employer]. Care instructions adapted under license by [facility]. If you have questions about a medical condition or this instruction, always ask your healthcare professional. [employer] disclaims any warranty or liability for your [...] strips. 300 each 3 12/14/2014 Blood-Glucose Meter (Playground EnergyTOUCH ULTRA2) KitIndications:Type 2 diabetes mellitus, uncontrolled by Other route. 1 = one blood glucose meter kit. 1 each 0 12/14/2014 Insulin [place], Disposable, (BD INSULIN PEN NEEDLE UF MINI) [...] PM EDT Office Visit Cardiology at [address] [address] Milagros Hernandez MD [facility] [address] Scheduled Procedures Name Priority Associated Diagnoses Date/Ti me EGD, UPPER GI ENDOSCOPY (WRV U 2.09) Peptic stricture of esophagus documented as of this encounter Procedures Procedure Name Priority Date/Time Associated Diagnosis Comments Up Gi Endoscopy, Ball Dil, 30Mm (01106) 01/12/2023 8:06 AM EDT Peptic stricture of esophagus POCT GLUCOSE Routine 01/12/2023 7:31 AM EDT documented in this encounter Results * POCT Glucose (01/12/2023 7:31 AM EDT) Glucose, POC 115 65 - 199 mg/dL [facility] Comment: Supplemental ranges: <140 mg/dL before meals <180 mg/dL all other times of the day Blood 01/12/2023 7:31 AM EDT 01/12/2023 7:31 AM EDT David Dejesus MD POINT OF CARE TEST ORDERABLES [facility] [address] [place] [address] documented in this encounter Visit Diagnoses Not [...] CRNA) documented in this encounter Care Teams Lace Stripper Relationship Specialty Start Date End Date Ana Gillespie APRN [address] [place] [address] PCP - General Family Medicine 02/03/19 documented as of this encounter
--- OUTSIDE RECORDS SUMMARY | 2024-02-29 21:28 | XMS_ITS | Encounter Summary ---
Author Organization [facility] Address [facility] [place] [address] Care Team Providers Care Hand Coper Name Role Phone Ana Gillespie APRN Primary Care Provider [phone] Encounter Details Date Type Department Care Team (Late st Contact Info) Description 12/24/2022 11:54 AM EDT Anesthesia [place] [phone] Tim aWgner MD [facility] [place] [address] Jeanette Hutchins CRNA [facility] [place] [address] Anesthesia Record Procedure Summary Procedure Name Responsible [...] 218.4 mg Dexmedetomidine 8 mcg Benzocaine 20% [place] 1 spray PHENYLephrine 720 mcg ePHEDrine 40 mg lactated ringers infusion 600 mL * Agents Name O2 Air N2O O2 Auxiliary Flowmeter 1 * Blood No blood administrations on file. Lines, Drains, and Airways Type Details Placement Removal (RETIRED) Peripheral IV Line - Single Lumen 12/24/22; 1108; dorsal arch vein (top of hand), left; kzzx-qwd-dwgpou catheter system; 22 gauge; Antonia Proctor RN; [...] Procedure Summary Date: 12/24/22 Room / Location: [facility] 3 / 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 Patient Location: PACU/MAP Level of Consciousness: Conscious but Sleepy Pain [...] y.o. female. Procedure(s): [facility], 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 INTER[facility] RAD IR G-TUBE PLACEMENT 09/11/2022 IR G-Tube Placement 09/11/[address] [facility] INTERVENTIONL RAD IR SUTURE RELEASE 09/25/2022 IR Suture Release 09/25/[address] [facility] INTER[facility]IONL RAD PERCUTANEOUS GASTROSTOMY N/A 09/11/2022 PERCUTANEOUS GASTROSTOMY performed by Aiden Flores MD at [facility] CATY PRO COLONOSCOPY, BIOPSY N/A 03/20/2016 COLONOSCOPY FLEXIBLE, WITH BX performed by David Dejesus MD at [facility] ENDOSCOPY PRO COLONOSCOPY, DIAGNOSTIC N/A 03/01/2020 COLONOSCOPY, DIAGNOSTIC performed by David Dejesus MD at [facility] ENDOSCOPY PRO ENDOSCOPIC US EXAM, ESOPH N/A 03/31/2022 UPPER EUS- ENDOSCOPIC ULTRASOUND performed by David Dejesus MD at [facility] ENDOSCOPY PRO UPPER GI ENDOSCOPY, BIOPSY N/A 04/03/2014 UPPER GASTROINTESTINAL ENDOSCOPY,WITH BIOPSY SINGLE OR MULTIPLE performed by David Dejesus MDat [facility] ENDOSCOPY PRO UPPER GI ENDOSCOPY, BIOPSY N/A 03/20/2016 EGD WITH BIOPSY performed by David Dejesus MD at [facility] ENDOSCOPY PRO UPPER GI ENDOSCOPY, BIOPSY N/A 11/22/2018 EGD WITH BIOPSY (WRVU 2.49) performed by David Djeesus MD at [facility] ENDOSCOPY PRO UPPER GI ENDOSCOPY, BIOPSY N/A 03/01/2020 UPPER GASTROINTESTINAL ENDOSCOPY,WITH BIOPSY SINGLE OR MULTIPLE (WRVU 2.49) performed by David Dejesus MD at [facility] ENDOSCOPY PRO UPPER GI ENDOSCOPY, BIOPSY N/A 09/23/2021 EGD WITH BIOPSY (WRVU 2.49) performed by David Dejesus MD at [facility] ENDOSCOPY PRO UPPER GI ENDOSCOPY, BIOPSY N/A 03/31/2022 EGD WITH BIOPSY (WRVU 2.49) performed by David Dejesus MD at [facility] ENDOSCOPY PRO UPPER GI ENDOSCOPY, BIOPSY N/A 07/03/2022 EGD WITH BIOPSY (WRVU 2.49) performed by David Dejesus MD at [facility] ENDOSCOPY PRO UPPER GI ENDOSCOPY, DIAGNOSTIC N/A 04/03/2014 EGD, UPPER GI ENDOSCOPY performed by David Dejesus MD at [facility] ENDOSCOPY PRO UPPER GI ENDOSCOPY, DIAGNOSTIC N/A 03/01/2020 EGD, UPPER GI ENDOSCOPY performed by David Dejesus MD at [facility] ENDOSCOPY PRO UPPER GI ENDOSCOPY, DIAGNOSTIC N/A 09/09/2022 EGD, UPPER GI ENDOSCOPY (WRVU 2.09) performed by Ayo Russ MD at [facility] MAIN OR Social History Tobacco Use [...] risks discussed with patient. Plan discussed with GROUP SALES COORDINATOR and attending. Anesthesia Screening documented in this encounter Plan of Treatment Upcoming Encounters Date Type Department Care Team (Late st Contact Info) Description 03/10/2024 4:00 PM EDT Office Visit Cardiology at [address] [address] Milagros Hernandez MD [facility] [place] [address] Scheduled Procedures Name Priority Associated Diagnoses Date/Ti [...] mg documented in this encounter Care Teams Hand Coper Relationship Specialty Start Date End Date Ana Gillespie APRN [address] [place] [address] PCP - General Family Medicine 02/03/19 documented as of this encounter
--- OUTSIDE RECORDS SUMMARY | 2024-02-29 21:28 | XMS_ITS | Encounter Summary ---
Author Organization [facility] [place] [address] Care Team Providers Care Jewelry Sales Name Role Phone Ana Gillespie MOBILE HOMES REPAIRER Primary Care Provider [phone] Encounter Details Date Type Department Care Team (Late st Contact Info) Description 12/25/2022 Telephone [place] [address] Parris Maravilla Social History Tobacco [...] PM EDT Office Visit Cardiology at [address] [phone] Milagros Hernandez MD [facility] [place] [address] Scheduled Procedures Name Priority Associated Diagnoses Date/Ti me EGD, UPPER GI ENDOSCOPY (WRV U 2.09) Peptic stricture of esophagus documented as of this encounter Visit Diagnoses Not on filedocumented in this encounter Care Teams Jewelry Sales Relationship Specialty Start Date End Date Ana Gillespie APRN [address] [place] [address] PCP - General Family Medicine 02/03/19 documented as of this encounter
--- OUTSIDE RECORDS SUMMARY | 2024-02-29 21:28 | XMS_ITS | Encounter Summary ---
Author Organization [facility] [place] [address] Care Team Providers Care Ripsawyer Name Role Phone Ana Gillespie APRN Primary Care Provider [phone] Encounter Details Date Type Department Care Team [...] PM EDT Office Visit Cardiology at [address] [address] Milagros Hernandez MD [facility] [place] [address] Scheduled Procedures Name Priority Associated Diagnoses Date/Ti me EGD, UPPER GI ENDOSCOPY (WRV U 2.09) Peptic stricture of esophagus documented as of this encounter Visit Diagnoses Not on filedocumented in this encounter Care Teams Ripsawyer Relationship Specialty Start Date End Date Ana Gillespie APRN [address] [place] [address] PCP - General Family Medicine 02/03/19 documented as of this encounter
--- OUTSIDE RECORDS SUMMARY | 2024-02-29 21:28 | XMS_ITS | Encounter Summary ---
Author Organization [facility] [place] [address] Care Team Providers Care Drain Tile Machine Operator Name Role Phone Ana Gillespie VAUGHN Primary Care Provider [phone] Encounter Details Date Type Department Care Team (Late st Contact Info) Description 11/13/2022 Telephone [place] [address] Alyce Vogt RN Social History [...] PM EDT Office Visit Cardiology at [address] [address] Milagros Hernandez MD [facility] [address] Scheduled Procedures Name Priority Associated Diagnoses Date/Ti me EGD, UPPER GI ENDOSCOPY (WRV U 2.09) Peptic stricture of esophagus documented as of this encounter Visit Diagnoses Not on filedocumented in this encounter Care Teams Drain Tile Machine Operator Relationship Specialty Start Date End Date Ana Gillespie APRN [address] [place] [address] PCP - General Family Medicine 02/03/19 documented as of this encounter
--- OUTSIDE RECORDS SUMMARY | 2024-02-29 21:28 | XMS_ITS | Encounter Summary ---
Author Organization [facility] [place] [address] Care Team Providers Care Librarian Special Collections Name Role Phone Ana Gillespie VAUGHN Primary Care Provider [phone] Encounter Details Date Type Department Care Team (Late st Contact Info) Description 03/01/2023 Telephone [place] [phone] Jessica Beckman Social History Tobacco Use Types [...] Campos rtnd call. Msg sent to Urgent Residential Mortgage Manager to call him back to sched pt. documented in this encounter Plan of Treatment Upcoming Encounters Date Type Department Care Team (Late st Contact Info) Description 03/10/2024 4:00 PM EDT Office Visit Cardiology at [address] [phone] Mialgros Hernandez MD [facility] [place] [address] Scheduled Procedures Name Priority Associated Diagnoses Date/Ti me EGD, UPPER GI ENDOSCOPY (WRV U 2.09) Peptic stricture of esophagus documented as of this encounter Visit Diagnoses Not on filedocumented in this encounter Care Teams Librarian Special Collections Relationship Specialty Start Date End Date Ana Gillespie APRN [address] [place] [address] PCP - General Family Medicine 02/03/19 documented as of this encounter
--- OUTSIDE RECORDS SUMMARY | 2024-02-29 21:28 | XMS_ITS | Encounter Summary ---
Author Organization [facility] [place] [address] Care Team Providers Care Release Coordinator Name Role Phone Ana Gillespie VAUGHN Primary Care Provider [phone] Encounter Details Date Type Department Care Team (Latest Contact Info) Description 10/16/2022 Unscheduled Encounter Endocrinology at [facility] [place] [phone] Elsie Erickson APRN [facility] [place] [address] Type 2 diabetes mellitus with hyperglycemia, with [...] PM EDT Office Visit Cardiology at [address] [address] Milagros Hernandez MD [facility] [place] [address] Scheduled Procedures Name Priority Associated Diagnoses Date/Ti me EGD, UPPER GI ENDOSCOPY (WRV U 2.09) Peptic stricture of esophagus documented as of this encounter Visit Diagnoses Diagnosis Type 2 diabetes mellitus with hyperglycemia, with long-term current use of insulin documented in this encounter Care Teams Release Coordinator Relationship Specialty Start Date End Date Ana Gillespie APRN [address] [place] [address] PCP - General Family Medicine 02/03/19 documented as of this encounter
--- OUTSIDE RECORDS SUMMARY | 2024-02-29 21:28 | XMS_ITS | Encounter Summary ---
Author Organization [facility] [place] [address] Care Team Providers Care Ethnology Professor Name Role Phone Ana Gillespie VAUGHN Primary Care Provider [phone] Encounter Details Date Type Department Care Team (Late st Contact Info) Description 01/27/2023 Telephone [place] [phone] Parris Maravilla Social History Tobacco Use Types [...] PM EDT Office Visit Cardiology at [address] [phone] Milagros Hernandez MD [facility] [place] [address] Scheduled Procedures Name Priority Associated Diagnoses Date/Ti me EGD, UPPER GI ENDOSCOPY (WRV U 2.09) Peptic stricture of esophagus documented as of this encounter Visit Diagnoses Not on filedocumented in this encounter Care Teams Ethnology Professor Relationship Specialty Start Date End Date Ana Gillespie APRN [address] [place] [address] PCP - General Family Medicine 02/03/19 documented as of this encounter
--- OUTSIDE RECORDS SUMMARY | 2024-02-29 21:28 | XMS_ITS | Encounter Summary ---
Author Organization [facility] [place] [address] Care Team Providers Care Noise Tester Name Role Phone Ana Gillespie VAUGHN Primary Care Provider [phone] Reason for Visit * Reason Onset Date Comments Triage 02/24/2023 hypotension Encounter Details Date Type Department Care Team (Late st Contact Info) Description 02/24/2023 Telephone Cardiology at [address] [phone] Chela Inman field talent qualification specialist (hypotension) Social History Tobacco Use Types Packs/Day [...] BP med(s). She can be reached at [phone]. Call placed to Campos, spouse & care aide to get more information for Dr Hernandez. [...] PM EDT Office Visit Cardiology at [address] [phone] Milagros Hernandez MD [facility] [place] [address] Scheduled Procedures Name Priority Associated Diagnoses Date/Ti me EGD, UPPER GI ENDOSCOPY (WRV U 2.09) Peptic stricture of esophagus documented as of this encounter Visit Diagnoses Not on filedocumented in this encounter Care Teams Noise Tester Relationship Specialty Start Date End Date Ana Gillespie APRN [address] [place] [address] PCP - General Family Medicine 02/03/19 documented as of this encounter
--- OUTSIDE RECORDS SUMMARY | 2024-02-29 21:28 | XMS_ITS | Encounter Summary ---
Author Organization [facility] [place] [address] Care Team Providers Care Training Director Name Role Phone Ana Gillespie APRN Primary Care Provider [phone] Encounter Details Date Type Department Care Team (Late st Contact Info) Description 01/12/2023 Orders [place] [phone] David Dejesus MD [facility] [place] [address] Peptic stricture of esophagus Social History Tobacco [...] PM EDT Office Visit Cardiology at [address] [phone] Milagros Hernandez MD [facility] [place] [address] Scheduled Procedures Name Priority Associated Diagnoses Date/Ti me EGD, UPPER GI ENDOSCOPY (WRV U 2.09) Peptic stricture of esophagus documented as of this encounter Visit Diagnoses Diagnosis Peptic stricture of esophagus Stricture and stenosis of esophagus documented in this encounter Care Teams Training Director Relationship Specialty Start Date End Date Ana Gillespie APRN [address] [place] [address] PCP - General Family Medicine 02/03/19 documented as of this encounter
--- OUTSIDE RECORDS SUMMARY | 2024-02-29 21:28 | XMS_ITS | Encounter Summary ---
Author Organization [facility] Address [facility] [place] [address] Care Team Providers Care Surfboard Maker Name Role Phone Ana Gillespie VAUGHN Primary Care Provider [phone] Reason for Visit * Diagnostic Test (Routine) - Closed Specialty Diagnoses / Procedures Referred By Esperanza rodríguez Referred To Contact Radiology Diagnoses Neuroleptic-induced parkinsonism Procedures IR G-Tube Check/Change IR GJ-Tube Check/Change Fannie Conde PA [facility] [place] [address] [facility] [place] [address] Referral ID Status Reason Start Date Expiration Date V isits Requested Visits Authorized [id number] Closed Specialty Service Requested 11/23/2022 05/26/2024 1 1 Encounter Details Date Type Department Care Team (Latest Contact Info) Description 11/27/2022 1:04 PM EDT - 11/27/2022 11:59 PM EDT Hospital En[place] [address] Azeem Alarcon MD [facility] [place] [address] Neuroleptic-induced parkinsonism Discharge Disposition: Home Social History [...] meter kit. 1 each 0 12/14/2014 Insulin [place], Disposable, (BD INSULIN PEN NEEDLE UF MINI) [...] PM EDT ANGIO NURSING DATABASE Name: Jennifer Ivring Date of : 1960 AGE: 62 y.o. Address: [address] [address] (home) Mobile: Telephone Information: Referring Provider: Fannie Conde REASON FOR VISIT: Order Questions Answers Where will study be performed? [facility] Radiology [120] Is the patient [...] of : 1960 AGE: 62 y.o. Address: [address] [address] (home) Mobile: Telephone Information: Referring Provider: Fannie Conde REASON FOR VISIT: Order Questions Answers Where will study be performed? [facility] Radiology [120] Is the patient [...] PM EDT Office Visit Cardiology at [address] [address] Milagros Hernandez MD [facility] [place] [address] Scheduled Procedures Name Priority Associated Diagnoses Date/Ti [...] monitored. Technique: The patient was positioned supine. Roll Form Operator imaging was performed with air injection through [...] Glucose, POC 128 65 - 199 mg/dL [facility] Comment: Supplemental ranges: <140 mg/dL before meals <180 mg/dL all other times of the day Blood 11/27/2022 1:25 PM EDT 11/27/2022 1:25 PM EDT Azeem Alarcon MD POINT OF CARE TEST O RDERABLES [facility] [place] [address] documented in this encounter Visit Diagnoses Diagnosis Neuroleptic-induced parkinsonism Secondary Parkinsonism documented in this encounter Care Teams Surfboard Maker Relationship Specialty Start Date End Date Ana Gillespie APRN [address] [place] [address] PCP - General Family Medicine 02/03/19 documented as of this encounter
--- OUTSIDE RECORDS SUMMARY | 2024-02-29 21:28 | XMS_ITS | Encounter Summary ---
Author Organization [facility] Address [facility] [place] [address] Care Team Providers Care Prop Cutter Name Role Phone Ana Gillespie APRN Primary Care Provider [phone] Encounter Details Date Type Department Care Team (Late st Contact Info) Description 11/23/2022 Notes Only Radiology at [facility] [place] [address] Hang Cooper PA [facility] [place] [address] Social History Tobacco Use Types Packs/Day Years [...] mg by mouth daily. Blood Sugar Diagnostic ([place] ULTRA TEST) Strip 1 each by Other [...] glucose meter kit. 1 each 0 Insulin [place], Disposable, (BD INSULIN PEN NEEDLE UF MINI) [...] IR G-Tube Placement 09/11/2022 Moustapha Hart MD [facility] INTERVENTIONL RAD IR SUTURE RELEASE 09/25/2022 IR Suture Release 09/25/2022 Yoselin Ghosh PA [facility] INTERVENTIONL RAD PERCUTANEOUS GASTROSTOMY N/A 09/11/2022 PERCUTANEOUS GASTROSTOMY performed by Aiden Flores MD at [facility] CATY PRO COLONOSCOPY, BIOPSY N/A 03/20/2016 COLONOSCOPY FLEXIBLE, WITH BX performed by David Dejesus MD at [facility] ENDOSCOPY PRO COLONOSCOPY, DIAGNOSTIC N/A 03/01/2020 COLONOSCOPY, DIAGNOSTIC performed by David Dejesus MD at [facility] ENDOSCOPY PRO ENDOSCOPIC US EXAM, ESOPH N/A 03/31/2022 UPPER EUS- ENDOSCOPIC ULTRASOUND performed by David Dejesus MD at [facility] ENDOSCOPY PRO UPPER GI ENDOSCOPY, BIOPSY N/A 04/03/2014 UPPER GASTROINTESTINAL ENDOSCOPY,WITH BIOPSY SINGLE OR MULTIPLE performed by David Dejesus MDat [facility] ENDOSCOPY PRO UPPER GI ENDOSCOPY, BIOPSY N/A 03/20/2016 EGD WITH BIOPSY performed by David Dejesus MD at [facility] ENDOSCOPY PRO UPPER GI ENDOSCOPY, BIOPSY N/A 11/22/2018 EGD WITH BIOPSY (WRVU 2.49) performed by David Dejesus MD at [facility] ENDOSCOPY PRO UPPER GI ENDOSCOPY, BIOPSY N/A 03/01/2020 UPPER GASTROINTESTINAL ENDOSCOPY,WITH BIOPSY SINGLE OR MULTIPLE (WRVU 2.49) performed by David Dejesus MD at [facility] ENDOSCOPY PRO UPPER GI ENDOSCOPY, BIOPSY N/A 09/23/2021 EGD WITH BIOPSY (WRVU 2.49) performed by David Dejesus MD at [facility] ENDOSCOPY PRO UPPER GI ENDOSCOPY, BIOPSY N/A 03/31/2022 EGD WITH BIOPSY (WRVU 2.49) performed by David Dejesus MD at [facility] ENDOSCOPY PRO UPPER GI ENDOSCOPY, BIOPSY N/A 07/03/2022 EGD WITH BIOPSY (WRVU 2.49) performed by David Dejesus MD at [facility] ENDOSCOPY PRO UPPER GI ENDOSCOPY, DIAGNOSTIC N/A 04/03/2014 EGD, UPPER GI ENDOSCOPY performed by David Dejesus MD at [facility] ENDOSCOPY PRO UPPER GI ENDOSCOPY, DIAGNOSTIC N/A 03/01/2020 EGD, UPPER GI ENDOSCOPY performed by David Dejesus MD at [facility] ENDOSCOPY PRO UPPER GI ENDOSCOPY, DIAGNOSTIC N/A 09/09/2022 EGD, UPPER GI ENDOSCOPY (WRVU 2.09) performed by Ayo Russ MD at [facility] MAIN OR Social history and habits: Social [...] PM EDT Office Visit Cardiology at [address] [address] Milagros Hernandez MD [facility] [place] [address] Scheduled Procedures Name Priority Associated Diagnoses Date/Ti me EGD, UPPER GI ENDOSCOPY (WRV U 2.09) Peptic stricture of esophagus documented as of this encounter Visit Diagnoses Not on filedocumented in this encounter Care Teams Prop Cutter Relationship Specialty Start Date End Date Ana Gillespie APRN [address] [place] [address] PCP - General Family Medicine 02/03/19 documented as of this encounter
--- OUTSIDE RECORDS SUMMARY | 2024-02-29 21:28 | XMS_ITS | Encounter Summary ---
Author Organization [facility] [place] [address] Care Team Providers Care Military Source Operations Officer Name Role Phone Ana Gillespie BELT [employer] FEEDER Primary Care Provider [phone] Reason for Visit * Reason Onset Date Comments Medication Refill 11/19/2022 Encounter Details Date Type Department Care Team (Late st Contact Info) Description 11/19/2022 Refill [place] [address] Alyce Vogt RN Social History Tobacco Use [...] PM EDT Office Visit Cardiology at [address] [phone] Milagros Hernandez MD [facility] [place] [address] Scheduled Procedures Name Priority Associated Diagnoses Date/Ti me EGD, UPPER GI ENDOSCOPY (WRV U 2.09) Peptic stricture of esophagus documented as of this encounter Visit Diagnoses Not on filedocumented in this encounter Care Teams Military Source Operations Officer Relationship Specialty Start Date End Date Ana Gillespie APRN [address] [place] [address] PCP - General Family Medicine 02/03/19 documented as of this encounter
--- OUTSIDE RECORDS SUMMARY | 2024-02-29 21:29 | XMS_ITS | Encounter Summary ---
Author Organization [facility] [place] [address] Care Team Providers Care Crime Analyst Name Role Phone Ana Gillespie APRN Primary Care Provider [phone] Encounter Details Date Type Department Care Team (Late st Contact Info) Description 07/03/2022 8:40 AM EST Anesthesia Event [place] [phone] Shanell Taylor MD [facility] [place] [address] Halima Jeong CRNA [facility] [place] [address] Anesthesia Record Procedure Summary Procedure Name Responsible [...] Procedure Summary Date: 07/03/22 Room / Location: [facility] / [facility] Anesthesia Start: 839 Anesthesia Stop: 900 Procedure: EGD WITH BIOPSY (WRVU 2.49) (Trunk) Diagnosis: 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 [facility] Level of Consciousness: Conscious but Sleepy [...] MD at [facility] ??? PRO COLONOSCOPY, DIAGNOSTIC N/A 03/01/2020 COLONOSCOPY, DIAGNOSTIC performed by David Dejesus MD at [facility] ??? PRO ENDOSCOPIC US EXAM, ESOPH N/A 03/31/2022 UPPER EUS- ENDOSCOPIC ULTRASOUND performed by David Dejesus MD at [facility] [...] 2.49) performed by David Dejesus MD at [facility] ??? PRO UPPER GI ENDOSCOPY, BIOPSY N/A 03/01/2020 UPPER GASTROINTESTINAL ENDOSCOPY,WITH BIOPSY SINGLE OR MULTIPLE (WRVU 2.49) performed by David Dejesus MD at [facility] ??? PRO UPPER GI ENDOSCOPY, BIOPSY N/A 09/23/2021 EGD WITH BIOPSY (WRVU 2.49) performed by David Dejesus MD at [facility] ??? PRO UPPER GI ENDOSCOPY, BIOPSY N/A 03/31/2022 EGD WITH BIOPSY (WRVU 2.49) performed by David Dejesus MD at [facility] [...] with patient and spouse. Plan discussed with COURT REGISTRY OFFICER and attending. Anesthesia Screening Code Status: Full code I discussed the risks of general anesthesia as detailed by the preoperative anesthesia consent withthis patient. The patient demonstrated adequate understanding and acknowledged these risks and wishes to proceed with scheduled surgery. All questions related to anesthetic care were welcomed and answered to satisfaction. Shanell Taylor MD MS Anesthesiologist, [facility] Pager [phone] documented in this encounter Plan of Treatment Upcoming Encounters Date Type Department Care Team (Late st Contact Info) Description 03/10/2024 4:00 PM EDT Office Visit Cardiology at [address] [address] Milagros Hernandez MD [facility] [place] [address] Scheduled Procedures Name Priority Associated Diagnoses Date/Ti [...] mg documented in this encounter Care Teams Crime Analyst Relationship Specialty Start Date End Date Ana Gillespie APRN [address] [place] [address] PCP - General Family Medicine 02/03/19 documented as of this encounter
--- OUTSIDE RECORDS SUMMARY | 2024-02-29 21:29 | XMS_ITS | Encounter Summary ---
Author Organization [facility] Address [facility] [place] [address] Care Team Providers Care Analysis Analyst Name Role Phone Ana Gillespie VAUGHN Primary Care Provider [phone] Encounter Details Date Type Department Care Team (Late st Contact Info) Description 07/03/2022 8:30 AM EST - 07/03/2022 9:00 AM EST Surgery Gastroenterology at [facility] [place] [address] David Dejesus MD [facility] [place] [address] EGD WITH BIOPSY (WRVU 2.39) Social History [...] Care Everywhere. * EGD (Upper Endoscopy): Post-op (Honduran) documented in this encounter Medications at Time [...] meter kit. 1 each 0 12/14/2014 Insulin [place], Disposable, (BD INSULIN PEN NEEDLE UF MINI) 31 x 07/23 NeedleIndications:Di abetes mellitus type 2, uncontrolled [address] [facility] [...] for dosing. 15 mL 11 ??? Insulin [place], Disposable, (BD INSULIN PEN NEEDLE UF MINI) [...] PM EDT Office Visit Cardiology at [address] [address] Milagros Hernandez MD [facility] [address] Scheduled Procedures Name Priority Associated Diagnoses Date/Ti me EGD, UPPER GI ENDOSCOPY (WRV U 2.09) Peptic stricture of esophagus documented as of this encounter Procedures Procedure Name Priority Date/Time Associated Diagnosis Comments SURGICAL PATHOLOGY REPORT Routine 07/03/2022 9:02 AM EST SPECIMEN TO PATHOLOGY Routine 07/03/2022 9:02 AM EST SPECIMEN TO PATHOLOGY Routine 07/03/2022 9:02 AM EST Upper Gi Endoscopy, Biopsy ([id number]) 07/03/2022 8:39 AM EST Farrell's esophagus without dysplasia POCT GLUCOSE Routine 07/03/2022 7:37 AM EST UPPER GI ENDOSCOPY Routine 07/03/2022 7: 26 AM EST documented in this encounter Results * Surgical Pathology Report (07/03/2022 9:02 AM EST) Final Diagnosis [id number] ? Location: 4T; EA11; A The signing [...] Note). Note: Immunostains for p53, CD31 and [id number] were evaluated for final diagnosis. Electronically signed by: ?Chinmay Nguyen MD Verified: ??07/08/2022 16:29 ??Pathologist Performed at: ??-[facility] Dept. of Pathology, [place] [address] Channel Account Manager: Vishal Gilliam MD, FCAP, ??CLIA Certificate: [id number] ADDITIONAL STUDIES Immunohistochemistry Studies: Formalin-fixed, paraffin-embedded tissue [...] note ? CD31 ? see note ? [id number] ? see note SPECIMEN(S) SUBMITTED A - [...] SPECIMEN PROCESSING ??pps 07/08/2022 4:29 PM EST [facility] GI Biopsy 07/03/2022 9:02 AM EST 07/03/2022 9:02 AM EST GI Biopsy 07/03/2022 9:02 AM EST 07/03/2022 9:02 AM EST David Dejesus MD PATHOLOGY/CYTOLOGY ORDERABLES Performing Organization Address [facility]/State/ZIP Co de Phone Number [facility] [place] [address] [facility] [place] [address] * Specimen to Pathology (07/03/2022 9:02 AM EST) AP Specimen 07/03/2022 9:02 AM EST 07/03/2022 9:02 AM EST Narrative [facility] - 07/03/2022 9:02 AM EST Specimen requisition ordered. ??Separate Pathology report to follow David Dejesus MD PATHOLOGY/CYTOLOGY ORDERABLES [facility] [place] [address] * Specimen to Pathology (07/03/2022 9:02 AM EST) AP Specimen 07/03/2022 9:02 AM EST 07/03/2022 9:02 AM EST Narrative [facility] - 07/03/2022 9:02 AM EST Specimen requisition ordered. ??Separate Pathology report to follow David Dejesus MD PATHOLOGY/CYTOLOGY ORDERABLES Performing Organization Address City/[facility]/[place] [address] * POCT Glucose (07/03/2022 7:37 AM EST) Glucose, POC 139 65 - 199 mg/dL [facility] Comment: Supplemental ranges: <140 mg/dL before meals <180 mg/dL all other times of the day Blood 07/03/2022 7:37 AM EST 07/03/2022 7:37 AM EST David Dejesus MD POINT OF CARE TEST ORDERABLES Performing Organization Address City/[facility] [place] [address] * UPPER GI ENDOSCOPY (07/03/2022 7:26 AM EST) UPPER GI ENDOSCOPY [facility] Endoscopy Procedure Date: 07/03/2022 7:26 AM ? Patient Name: Jennifer Irving ? Date of : 1960 ? Age: 62 ? Order #: [id number] ? Instrument Name: [id number] ? Procedure: ? Upper GI endoscopy Indications: [...] CRNA) documented in this encounter Care Teams Analysis Analyst Relationship Specialty Start Date End Date Ana Gillespie APRN [address] [place] [address] PCP - General Family Medicine 02/03/19 documented as of this encounter
--- OUTSIDE RECORDS SUMMARY | 2024-02-29 21:29 | XMS_ITS | Encounter Summary ---
Author Organization [facility] [place] [address] Care Team Providers Care Skein Dyer Name Role Phone Jose MiguelAna VAUGHN Primary Care Provider [phone] Reason for Visit * Reason Onset Date Comments Diabetes 09/30/2022 Encounter Details Date Type Department Care Team (Late st Contact Info) Description 09/30/2022 Telephone [place] [address] Elsie Erickson [facility] [place] [address] Diabetes Social History Tobacco Use Types Packs/Day [...] PM EDT Office Visit Cardiology at [address] [address] Milagros Hernandez MD [facility] [place] [address] Scheduled Procedures Name Priority Associated Diagnoses Date/Ti me EGD, UPPER GI ENDOSCOPY (WRV U 2.09) Peptic stricture of esophagus documented as of this encounter Visit Diagnoses Not on filedocumented in this encounter Care Teams Skein Dyer Relationship Specialty Start Date End Date Ana Gillespie APRN [address] [place] [address] PCP - General Family Medicine 02/03/19 documented as of this encounter
--- OUTSIDE RECORDS SUMMARY | 2024-02-29 21:29 | XMS_ITS | Encounter Summary ---
Author Organization [facility] Address [facility] [place] [address] Care Team Providers Care Slunk Skinner Name Role Phone Ana Gillespie VAUGHN Primary Care Provider [phone] Encounter Details Date Type Department Care Team (Late st Contact Info) Description 08/14/2022 External [place] [address] Social History Tobacco Use Types Packs/Day Years [...] PM EDT Office Visit Cardiology at [address] [address] Milagros Hernandez MD [facility] [place] [address] Scheduled Procedures Name Priority Associated Diagnoses Date/Ti [...] documented as of this encounter Care Teams Slunk Skinner Relationship Specialty Start Date End Date Ana Gillespie APRN [address] [place] [address] PCP - General Family Medicine 02/03/19 documented as of this encounter
--- OUTSIDE RECORDS SUMMARY | 2024-02-29 21:29 | XMS_ITS | Encounter Summary ---
[place] [address] Care Team Providers Care Geriatric Personal Care Aide Name Role Phone Ana Gillespie VAUGHN Primary Care Provider [phone] Encounter Details Date Type Department Care Team (Late st Contact Info) Description 06/23/2022 Telephone [place] [address] Jessica Beckman Social History Tobacco Use Types [...] PM EDT Office Visit Cardiology at [address] [phone] Milagros Hernandez MD [facility] [place] [address] Scheduled Procedures Name Priority Associated Diagnoses Date/Ti me EGD, UPPER GI ENDOSCOPY (WRV U 2.09) Peptic stricture of esophagus documented as of this encounter Visit Diagnoses Not on filedocumented in this encounter Care Teams Geriatric Personal Care Aide Relationship Specialty Start Date End Date Ana Gillespie APRN [address] [place] [address] PCP - General Family Medicine 02/03/19 documented as of this encounter
--- OUTSIDE RECORDS SUMMARY | 2024-02-29 21:29 | XMS_ITS | Encounter Summary ---
Author Organization [facility] Address [facility] [place] [address] Care Team Providers Care Lead Applier Name Role Phone Ana Gillespie APRN Primary Care Provider [phone] Encounter Details Date Type Department Care Team (Late st Contact Info) Description 06/05/2022 Telephone [place] [phone] Crissy Causey Social History Tobacco Use Types [...] PM EDT Office Visit Cardiology at [address] [phone] Milagros Hernandez MD [facility] [place] [address] Scheduled Procedures Name Priority Associated Diagnoses Date/Ti me EGD, UPPER GI ENDOSCOPY (WRV U 2.09) Peptic stricture of esophagus documented as of this encounter Visit Diagnoses Not on filedocumented in this encounter Care Teams Lead Applier Relationship Specialty Start Date End Date Ana Gillespie APRN [address] [place] [address] PCP - General Family Medicine 02/03/19 documented as of this encounter
--- OUTSIDE RECORDS SUMMARY | 2024-02-29 21:29 | XMS_ITS | Encounter Summary ---
Author Organization [facility] [place] [address] Care Team Providers Care Flatwork Finisher Name Role Phone Ana Gillespie VAUGHN Primary Care Provider [phone] Reason for Visit * Reason Onset Date Comments Diabetes 09/30/2022 Encounter Details Date Type Department Care Team (Late st Contact Info) Description 09/30/2022 Telephone [place] [phone] Elsie Erickson APRN [facility] [address] Diabetes Social History Tobacco Use Types Packs/Day [...] PM EDT Office Visit Cardiology at [address] [phone] Milagros Hernandez MD [facility] CARDI[facility] [address] Scheduled Procedures Name Priority Associated Diagnoses Date/Ti me EGD, UPPER GI ENDOSCOPY (WRV U 2.09) Peptic stricture of esophagus documented as of this encounter Visit Diagnoses Not on filedocumented in this encounter Care Teams Flatwork Finisher Relationship Specialty Start Date End Date Ana Gillespie APRN [address] [place] [address] PCP - General Family Medicine 02/03/19 documented as of this encounter
--- OUTSIDE RECORDS SUMMARY | 2024-02-29 21:29 | XMS_ITS | Encounter Summary ---
[place] [address] Care Team Providers Care Title Insurance Sales Representative Name Role Phone Ana Gillespie VAUGHN Primary Care Provider [phone] Reason for Referral * Diagnostic Test (Routine) - Closed Specialty Diagnoses / Procedures Referred By Esperanza rodríguez Referred To Contact Radiology Diagnoses Gastrostomy tube in place Procedures IR Suture Release Moustapha Hart MD [facility] [place] [address] [place] [address] Referral ID Status Reason Start Date Expiration Date V isits Requested Visits Authorized [id number] Closed Specialty Service Requested 09/11/2022 03/14/2024 1 1 Reason for Visit * Auth/Cert (Routine) Specialty Diagnoses / Procedures Referred By Esperanza rodríguez Referred To Contact Diagnoses Shock CARDIOGENIC PULMONARY EDEMA Procedures ER Carlos Melton MD [facility] [place] [address] [facility] Referral ID Status Reason Start Date Expiration Date Visits Re quested Visits Authorized [id number] 1 1 Encounter Details Date Type Department Care Team (Latest Contact Info) Description 09/25/2022 9:00 AM EDT - 09/25/2022 11:59 PM EDT Hospital [place] [address] Discharge [...] 180 tablet 3 10/20/2021 Blood Sugar Diagnostic (iSTAR MedicalTOUCH ULTRA TEST) StripIndications:Typ e 2 diabetes mellitus, [...] meter kit. 1 each 0 12/14/2014 Insulin [place], Disposable, (BD INSULIN PEN NEEDLE UF MINI) 31 x 07/23 NeedleIndications:Di abetes mellitus type 2, uncontrolled 1 Device by [facility]Non-Drug; Combo Route) route 3 times daily as [...] to AVS in admission encounter and below. [facility] INTERVENTIONAL RADIOLOGY NURSES NOTE FOR GASTROPEXY [...] is during regular office hours, please call [phone]. If it is after regular office hours, or on weekends or holidays, please call [phone] and ask to speak to the Staff Mechanical Engineer contract mail carrier for Interventional Radiology. Revised 02/23/19 documented in this encounter Plan of Treatment Upcoming Encounters Date Type Department Care Team (Late st Contact Info) Description 03/10/2024 4:00 PM EDT Office Visit Cardiology at [address] [address] Milagros Hernandez MD [facility] [place] [address] Scheduled Procedures Name Priority Associated Diagnoses Date/Ti [...] done. Moustapha Hart MD IMG IR ORDERABLES [place], [place] documented in this encounter Visit Diagnoses Diagnosis Gastrostomy tube in place documented in this encounter Care Teams Title Insurance Sales Representative Relationship Specialty Start Date End Date Ana Gillespie APRN [address] [place] [address] PCP - General Family Medicine 02/03/19 documented as of this encounter
--- OUTSIDE RECORDS SUMMARY | 2024-02-29 21:29 | XMS_ITS | Encounter Summary ---
Author Organization [facility] Address [facility] [place] [address] Care Team Providers Care Filament Shaper Name Role Phone Ana Gillespie APRN Primary Care Provider [phone] Encounter Details Date Type Department Care Team (Late st Contact Info) Description 03/31/2022 9:58 AM EST Anesthesia [place] [phone] Alfonso Duarte MD [facility] [place] [address] Sergey Hahn CRNA [facility] [place] [address] Anesthesia Record Procedure Summary Procedure Name Responsible [...] 920; median cubital vein (antecubital fossa), right; vwxc-[id number]-cqefgm catheter system; Anatomical Landmarks; US Not Used; [...] Procedure Summary Date: 03/31/22 Room / Location: [facility] ENDO 2 / [facility] Anesthesia Start: 957 Anesthesia Stop: 1038 Procedures: EGD WITH BIOPSY (WRVU 2.49) UPPER EUS- ENDOSCOPIC ULTRASOUND (Trunk) Diagnosis: (Schedule EGD in two years) Surgeons: David Dejesus MD Responsible Provider: Alfonso Duarte MD Anesthesia Type: MAC ASA Status: 3 All Anesthesia Providers: Anesthesiologist: Alfonso Duarte MD FRONT END WEB DESIGNER: Susy Juárez CRNA Vitals Value Taken Time BP 108/56 03/31/22 1050 Temp Pulse Resp 19 03/31/22 1050 SpO2 100 % 03/31/22 1100 Pain Level 0 03/31/22 1050 Patient Location: PACU/[facility] Level of Consciousness: Awake and Alert [...] BX performed by David Dejesus MD at [facility]COPY ??? PRO COLONOSCOPY, DIAGNOSTIC N/A 03/01/2020 COLONOSCOPY, DIAGNOSTIC performed by David Dejesus MD at [facility] ENDOSCOPY ??? PRO UPPER GI ENDOSCOPY, BIOPSY N/A 04/03/2014 UPPER GASTROINTESTINAL ENDOSCOPY,WITH BIOPSY SINGLE OR MULTIPLE performed by David Dejesus MDat [facility] ??? PRO UPPER GI ENDOSCOPY, BIOPSY N/A 03/20/2016 EGD WITH BIOPSY performed by David Dejesus MD at [facility] ??? PRO UPPER GI ENDOSCOPY, BIOPSY N/A 11/22/2018 EGD WITH BIOPSY (WRVU 2.49) performed by David Dejesus MD at [facility] ??? PRO UPPER GI ENDOSCOPY, BIOPSY N/A 03/01/2020 UPPER GASTROINTESTINAL ENDOSCOPY,WITH BIOPSY SINGLE OR MULTIPLE (WRVU 2.49) performed by David Dejesus MD at [facility] ??? PRO UPPER GI ENDOSCOPY, BIOPSY N/A 09/23/2021 EGD WITH BIOPSY (WRVU 2.49) performed by David Dejesus MD at [facility] ??? PRO UPPER GI ENDOSCOPY, DIAGNOSTIC N/A 04/03/2014 EGD, UPPER GI ENDOSCOPY performed by David Dejesus MD at [facility] ??? PRO UPPER GI ENDOSCOPY, DIAGNOSTIC N/A 03/01/2020 EGD, UPPER GI ENDOSCOPY performed by David Dejesus MD at [facility] Social History Tobacco Use ??? [...] risks discussed with patient. Plan discussed with FRONT END WEB DESIGNER. Pre-Anesthesia Evaluation for: Jennifer Irving a 61 [...] BX performed by David Dejesus MD at [facility] ??? PRO COLONOSCOPY, DIAGNOSTIC N/A 03/01/2020 COLONOSCOPY, DIAGNOSTIC performed by David Dejesus MD at [facility] ??? PRO UPPER GI ENDOSCOPY, BIOPSY N/A 04/03/2014 UPPER GASTROINTESTINAL ENDOSCOPY,WITH BIOPSY SINGLE OR MULTIPLE performed by David Dejesus MDat [facility] ??? PRO UPPER GI ENDOSCOPY, BIOPSY N/A 03/20/2016 EGD WITH BIOPSY performed by David Dejesus MD at [facility] ??? PRO UPPER GI ENDOSCOPY, BIOPSY N/A 11/22/2018 EGD WITH BIOPSY (WRVU 2.49) performed by David Dejesus MD at [facility] ??? PRO UPPER GI ENDOSCOPY, BIOPSY N/A 03/01/2020 UPPER GASTROINTESTINAL ENDOSCOPY,WITH BIOPSY SINGLE OR MULTIPLE (WRVU 2.49) performed by David Dejesus MD at [facility] ??? PRO UPPER GI ENDOSCOPY, BIOPSY N/A 09/23/2021 EGD WITH BIOPSY (WRVU 2.49) performed by David Dejesus MD at [facility] ??? PRO UPPER GI ENDOSCOPY, DIAGNOSTIC N/A 04/03/2014 EGD, UPPER GI ENDOSCOPY performed by David Dejesus MD at [facility] ??? PRO UPPER GI ENDOSCOPY, DIAGNOSTIC N/A 03/01/2020 EGD, UPPER GI ENDOSCOPY performed by David Dejesus MD at [facility] Social History Tobacco Use ??? [...] 5 years - MAC without issue Plan [facility] Violet Miguel MD 01/26/2022 Client Support Coordinator Pager #[phone] Informed Consent: Anesthesia Screening Pre-Anesthesia Evaluation for: [...] BX performed by David Dejesus MD at [facility] ??? PRO COLONOSCOPY, DIAGNOSTIC N/A 03/01/2020 COLONOSCOPY, DIAGNOSTIC performed by David Dejesus MD at [facility] ??? PRO UPPER GI ENDOSCOPY, BIOPSY N/A 04/03/2014 UPPER GASTROINTESTINAL ENDOSCOPY,WITH BIOPSY SINGLE OR MULTIPLE performed by David Dejesus MDat [facility] ??? PRO UPPER GI ENDOSCOPY, BIOPSY N/A 03/20/2016 EGD WITH BIOPSY performed by David Dejesus MD at [facility] ??? PRO UPPER GI ENDOSCOPY, BIOPSY N/A 11/22/2018 EGD WITH BIOPSY (WRVU 2.49) performed by David Dejesus MD at [facility] ??? PRO UPPER GI ENDOSCOPY, BIOPSY N/A 03/01/2020 UPPER GASTROINTESTINAL ENDOSCOPY,WITH BIOPSY SINGLE OR MULTIPLE (WRVU 2.49) performed by David Dejesus MD at [facility] ??? PRO UPPER GI ENDOSCOPY, BIOPSY N/A 09/23/2021 EGD WITH BIOPSY (WRVU 2.49) performed by David Dejesus MD at [facility] ??? PRO UPPER GI ENDOSCOPY, DIAGNOSTIC N/A 04/03/2014 EGD, UPPER GI ENDOSCOPY performed by David Dejesus MD at [facility] ??? PRO UPPER GI ENDOSCOPY, DIAGNOSTIC N/A 03/01/2020 EGD, UPPER GI ENDOSCOPY performed by David Dejesus MD at [facility] Social History Tobacco Use ??? [...] risks discussed with patient. Plan discussed with FRONT END WEB DESIGNER. Anesthesia Screening Anesthesia Screening documented in this encounter Plan of Treatment Upcoming Encounters Date Type Department Care Team (Late st Contact Info) Description 03/10/2024 4:00 PM EDT Office Visit Cardiology at [address] [address] Milagros Hernandez MD [facility] [place] [address] Scheduled Procedures Name Priority Associated Diagnoses Date/Ti [...] mg documented in this encounter Care Teams Filament Shaper Relationship Specialty Start Date End Date Ana Gillespie APRN [address] [place] [address] PCP - General Family Medicine 02/03/19 documented as of this encounter
--- OUTSIDE RECORDS SUMMARY | 2024-02-29 21:29 | XMS_ITS | Encounter Summary ---
[place] [address] Care Team Providers Care Fisher Terrapin Name Role Phone Ana Gillespie VAUGHN Primary Care Provider [phone] Reason for Visit * Auth/Cert (Routine) Specialty Diagnoses / Procedures Referred By Esperanza t Referred To Contact Diagnoses Shock CARDIOGENIC PULMONARY EDEMA Procedures ER CLAUDIOI Carlos Terry MD [facility] [place] [address] [facility] Referral ID Status Reason Start Date Expiration Date Visits Re quested Visits Authorized [id number] 1 1 Encounter Details Date Type Department Care Team (Late st Contact Info) Description 09/09/2022 11:32 PM EDT Anesthesia [place] [address] Chon Moctezuma MD [facility] [place] [address] Darin Chaves MD [facility] [place] [address] Anesthesia Record Procedure Summary Procedure Name Responsible [...] side of arm), right; pressure injectable catheter ([id number]); 5 Fr; 0 cm; 33 cm; 33 [...] Procedure Summary Date: 09/09/22 Room / Location: [place] [address] [facility] MAIN OR Anesthesia Start: 2331 Anesthesia Stop: Procedure: EGD, UPPER GI ENDOSCOPY (WRVU 2.09) Diagnosis: (failed MBS with 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 PRO UPPER GI [...] David Dejesus MD at [facility] Social History Tobacco Use ??? [...] PM EDT Office Visit Cardiology at [address] [address] Milagros Hernandez MD [facility] [place] [address] Scheduled Procedures Name Priority Associated Diagnoses Date/Ti [...] EDT documented in this encounter Care Teams Fisher Terrapin Relationship Specialty Start Date End Date Ana Gillespie APRN [address] [place] [address] PCP - General Family Medicine 02/03/19 documented as of this encounter
--- OUTSIDE RECORDS SUMMARY | 2024-02-29 21:29 | XMS_ITS | Encounter Summary ---
Author Organization [facility] Address [facility] [place] [address] Care Team Providers Care Distillery Laborer Name Role Phone Ana Gillespie VAUGHN Primary Care Provider [phone] Encounter Details Date Type Department Care Team (Late st Contact Info) Description 08/14/2022 Ancillary Procedure Radiology Library [place] [facility] [place] [address] Social History Tobacco Use Types Packs/Day Years [...] PM EDT Office Visit Cardiology at [address] [address] Milagros Hernandez MD [facility] [place] [address] Scheduled Procedures Name Priority Associated Diagnoses Date/Ti [...] is for storage only. Ayo Serna MD [facility] FILM LIBRARY ORD ERABLES documented in this encounter Visit Diagnoses Not on filedocumented in this encounter Care Teams Distillery Laborer Relationship Specialty Start Date End Date Ana Gillespie APRN [address] [place] [address] PCP - General Family Medicine 02/03/19 documented as of this encounter
--- OUTSIDE RECORDS SUMMARY | 2024-02-29 21:29 | XMS_ITS | Encounter Summary ---
Author Organization [facility] Address [facility] [place] [address] Care Team Providers Care Physical Instructor Name Role Phone Ana Gillespie VAUGHN Primary Care Provider [phone] Reason for Visit * Reason Onset Date Comments TeleHealth 05/20/2022 Medication and a llergy review. Encounter Details Date Type Department Care Team (Late st Contact Info) Description 05/20/2022 [place] [phone] Alfonso Rose MD [facility] [place] [address] TeleHealth (Medication and allergy review. ) Social [...] PM EDT Office Visit Cardiology at [address] [address] Milagros Hernandez MD [facility] [place] [address] Scheduled Procedures Name Priority Associated Diagnoses Date/Ti me EGD, UPPER GI ENDOSCOPY (WRV U 2.09) Peptic stricture of esophagus documented as of this encounter Visit Diagnoses Not on filedocumented in this encounter Care Teams Physical Instructor Relationship Specialty Start Date End Date Ana Gillespie APRN [address] [place] [address] PCP - General Family Medicine 02/03/19 documented as of this encounter
--- OUTSIDE RECORDS SUMMARY | 2024-02-29 21:29 | XMS_ITS | Encounter Summary ---
Author Organization [facility] [place] [address] Care Team Providers Care Joinery Factory Worker Name Role Phone Aan Gillespie VAUHGN Primary Care Provider [phone] Reason for Visit * Reason Onset Date Comments Diabetes 09/29/2022 Encounter Details Date Type Department Care Team (Late st Contact Info) Description 09/29/2022 Telephone [place] [phone] Elsie Erickson APRN [facility] [place] [address] Diabetes Social History Tobacco Use Types Packs/Day [...] PM EDT Office Visit Cardiology at [address] [phone] Milagros Hernandez MD [facility] [place] [address] Scheduled Procedures Name Priority Associated Diagnoses Date/Ti me EGD, UPPER GI ENDOSCOPY (WRV U 2.09) Peptic stricture of esophagus documented as of this encounter Visit Diagnoses Not on filedocumented in this encounter Care Teams Joinery Factory Worker Relationship Specialty Start Date End Date Ana Gillespie APRN [address] [place] [address] PCP - General Family Medicine 02/03/19 documented as of this encounter
--- OUTSIDE RECORDS SUMMARY | 2024-02-29 21:29 | XMS_ITS | Encounter Summary ---
Author Organization [facility] [place] [address] Care Team Providers Care Transmitter Engineer In Charge Name Role Phone Ana Gillespie APRN Primary Care Provider [phone] Reason for Visit * Auth/Cert (Routine) Specialty Diagnoses / Procedures Referred By Esperanza rodríguez Referred To Contact Diagnoses Shock CARDIOGENIC PULMONARY EDEMA Procedures ER Carlos Melton MD [facility] [address] [facility] Referral ID Status Reason Start Date Expiration Date Visits Re quested Visits Authorized [id number] 1 1 Encounter Details Date Type Department Care Team (Late st Contact Info) Description 09/11/2022 4:10 [place] [phone] Gt Urena MD [facility] [place] [address] Anesthesia Record Procedure Summary Procedure Name Responsible Anesthesiologist Anesthesia Start Time Anesthesia Stop Time PERCUTANEOUS GASTROSTOMY tG Urena MD 09/11/22 1610 09/11/22 1723 Events [...] expected post-operative course (including disposition.) Gt Lisa SUPERVISOR NUTRITIONAL YEAST 1723 Recovery or ICU Handoff Sayra ent [...] side of arm), right; pressure injectable catheter ([id number]); 5 Fr; 0 cm; 33 cm; 33 [...] Procedure Summary Date: 09/11/22 Room / Location: [facility] INTERVENTIONAL RADIOLOGY 2 / [facility] Anesthesia Start: 1610 Anesthesia Stop: 1723 Procedure: PERCUTANEOUS GASTROSTOMY Diagnosis: (DYSPHAGIA) Surgeons: Aiden Flores MD Responsible Provider: Gt Urena MD Anesthesia Type: general ASA Status: 3 All Anesthesia Providers: Anesthesiologist: Gt Urena MD SUPERVISOR NUTRITIONAL YEAST: Jennifer Salomon CRNA; Gt Lisa CRNA Vitals Value Taken Time BP 117/55 09/11/22 1730 Temp 37 ??C (98.6 ??F) 09/11/22 1725 Pulse 73 09/11/22 1741 Resp 14 09/11/22 1741 SpO2 93 % 09/11/22 1741 Pain Level 0 09/11/22 1730 Vitals shown include unvalidated device data. Patient Location: PACU/[facility] Level of Consciousness: Awake and [...] BX performed by David Dejesus MD at [facility] ENDOSCOPY ??? PRO COLONOSCOPY, DIAGNOSTIC N/A 03/01/2020 COLONOSCOPY, DIAGNOSTIC performed by David Dejesus MD at [facility] ENDOSCOPY ??? PRO ENDOSCOPIC US EXAM, ESOPH N/A 03/31/2022 UPPER EUS- ENDOSCOPIC ULTRASOUND performed by David Dejesus MD at [facility] ENDOSCOPY ??? PRO UPPER GI ENDOSCOPY, BIOPSY N/A 04/03/2014 UPPER GASTROINTESTINAL ENDOSCOPY,WITH BIOPSY SINGLE OR MULTIPLE performed by David Dejesus MDat [facility] ENDOSCOPY ??? PRO UPPER GI ENDOSCOPY, BIOPSY N/A 03/20/2016 EGD WITH BIOPSY performed by David Dejesus MD at [facility] ENDOSCOPY ??? PRO UPPER GI ENDOSCOPY, BIOPSY N/A 11/22/2018 EGD WITH BIOPSY (WRVU 2.49) performed by David Dejesus MD at [facility] ENDOSCOPY ??? PRO UPPER GI ENDOSCOPY, BIOPSY N/A 03/01/2020 UPPER GASTROINTESTINAL ENDOSCOPY,WITH BIOPSY SINGLE OR MULTIPLE (WRVU 2.49) performed by David Dejesus MD at [facility] ENDOSCOPY ??? PRO UPPER GI ENDOSCOPY, BIOPSY N/A 09/23/2021 EGD WITH BIOPSY (WRVU 2.49) performed by David Dejesus MD at [facility] ENDOSCOPY ??? PRO UPPER GI ENDOSCOPY, BIOPSY N/A 03/31/2022 EGD WITH BIOPSY (WRVU 2.49) performed by David Dejesus MD at [facility] ENDOSCOPY ??? PRO UPPER GI ENDOSCOPY, BIOPSY N/A 07/03/2022 EGD WITH BIOPSY (WRVU 2.49) performed by David Dejesus MD at [facility] ENDOSCOPY ??? PRO UPPER GI ENDOSCOPY, DIAGNOSTIC N/A 04/03/2014 EGD, UPPER GI ENDOSCOPY performed by David Dejesus MD at [facility] ENDOSCOPY ??? PRO UPPER GI ENDOSCOPY, DIAGNOSTIC N/A 03/01/2020 EGD, UPPER GI ENDOSCOPY performed by David Dejesus MD at [facility] ENDOSCOPY ??? PRO UPPER GI ENDOSCOPY, DIAGNOSTIC N/A 09/09/2022 EGD, UPPER GI ENDOSCOPY (WRVU 2.09) performed by Ayo Russ MD at [facility] MAIN OR Social History Tobacco Use [...] discussed with patient. Plan discussed with SUPERVISOR NUTRITIONAL YEAST and attending. Anesthesia Screening documented in this encounter Miscellaneous Notes * Addendum Note - Jennifer Salomon CRNA - 09/21/2022 4:11 PM EDT Addendum created 09/21/22 1611 by Jennifer Salomon CRNA Intraprocedure Meds edited documented in this encounter Plan of Treatment Upcoming Encounters Date Type Department Care Team (Late st Contact Info) Description 03/10/2024 4:00 PM EDT Office Visit Cardiology at [address] [address] Milagros Hernandez MD [facility] [place] [address] Scheduled Procedures Name Priority Associated Diagnoses Date/Ti [...] EDT documented in this encounter Care Teams Transmitter Engineer In Charge Relationship Specialty Start Date End Date Ana Gillespie APRN [address] [place] [address] PCP - General Family Medicine 02/03/19 documented as of this encounter
--- OUTSIDE RECORDS SUMMARY | 2024-02-29 21:29 | XMS_ITS | Encounter Summary ---
Author Organization [facility] [place] [address] Care Team Providers Care Sales And Service Agent Name Role Phone Ana Gillespie APRN Primary Care Provider [phone] Encounter Details Date Type Department Care Team [...] PM EDT Office Visit Cardiology at [address] [address] Milagros Hernandez MD [facility] [place] [address] Scheduled Procedures Name Priority Associated Diagnoses Date/Ti me EGD, UPPER GI ENDOSCOPY (WRV U 2.09) Peptic stricture of esophagus documented as of this encounter Visit Diagnoses Not on filedocumented in this encounter Care Teams Sales And Service Agent Relationship Specialty Start Date End Date Ana Gillespie APRN [address] [place] [address] PCP - General Family Medicine 02/03/19 documented as of this encounter
--- OUTSIDE RECORDS SUMMARY | 2024-02-29 21:29 | XMS_ITS | Encounter Summary ---
Author Organization [facility] Address [facility] [place] [address] Care Team Providers Care Marketing Traffic Coordinator Name Role Phone Ana Gillespie APRN Primary Care Provider [phone] Encounter Details Date Type Department Care Team (Latest Contact Info) Description 08/14/2022 9:30 PM EDT - 08/14/2022 11:10 PM EDT Hospital Encounter [facility] [place] [phone] Carlos Terry MD [facility] [address] Discharge Disposition: Home Social History Tobacco Use [...] meter kit. 1 each 0 12/14/2014 Insulin [place], Disposable, (BD INSULIN PEN NEEDLE UF [...] PM EDT Office Visit Cardiology at [address] [address] Milagros Hernandez MD [facility] [place] [address] Scheduled Procedures Name Priority Associated Diagnoses Date/Ti me EGD, UPPER GI ENDOSCOPY (WRV U 2.09) Peptic stricture of esophagus documented as of this encounter Visit Diagnoses Not on filedocumented in this encounter Care Teams Marketing Traffic Coordinator Relationship Specialty Start Date End Date Ana Gillespie APRN [address] [place] [address] PCP - General Family Medicine 02/03/19 documented as of this encounter
--- OUTSIDE RECORDS SUMMARY | 2024-02-29 21:29 | XMS_ITS | Encounter Summary ---
Author Organization [facility] Address [facility] [place] [address] Care Team Providers Care Pit Shoveler Name Role Phone Ana Gillespie VAUGHN Primary Care Provider [phone] Encounter Details Date Type Department Care Team (Late st Contact Info) Description 08/14/2022 Telephone Cardiology at [address] [address] Jesenia Mejía MD [facility] [place] [address] Social History Tobacco Use Types Packs/Day Years [...] 08/14/2022 Initial Contact Time: 17:36 Patient Location: [facility] Provider: Dr. Sevilla Presenting Symptoms [...] code status [facility] Pertinent Diagnostic Findings: - Troponin-I 1686 (ULN 60) - Pro-BNP > 35,000 - ECG sinus tachycardia with PVCs, anterior Q waves OSH Interventions: - Dobutamine 2.5 mcg/kg/shawanda - Lasix gtt 5 mg/hr - Heparin gtt - Aspirin 300 rectal BID (after hip) Plan: - Transfer to [facility] - Plavix load Above recommendations/plans are based on my conversation with the referring provider. I have not personally interviewed or examined this patient. Jesenia Mejía MD Network Operations Analyst PGY-5 [facility] documented in this encounter Plan of Treatment Upcoming Encounters Date Type Department Care Team (Late st Contact Info) Description 03/10/2024 4:00 PM EDT Office Visit Cardiology at [address] [address] Milagros Hernandez MD [facility] [place] [address] Scheduled Procedures Name Priority Associated Diagnoses Date/Ti me EGD, UPPER GI ENDOSCOPY (WRV U 2.09) Peptic stricture of esophagus documented as of this encounter Visit Diagnoses Not on filedocumented in this encounter Care Teams Pit Shoveler Relationship Specialty Start Date End Date Ana Gillespie APRN [address] [place] [address] PCP - General Family Medicine 02/03/19 documented as of this encounter
--- OUTSIDE RECORDS SUMMARY | 2024-02-29 21:29 | XMS_ITS | Encounter Summary ---
Author Organization [facility] Address [facility] [place] [address] Care Team Providers Care Rn Social Services Name Role Phone Ana Gillespie APRN Primary Care Provider [phone] Encounter Details Date Type Department Care Team (Late st Contact Info) Description 06/23/2022 Telephone [place] [address] Ilene Sharma RN Social History [...] PM EDT Office Visit Cardiology at [address] [phone] Milagros Hernandez MD [facility] [place] [address] Scheduled Procedures Name Priority Associated Diagnoses Date/Ti [...] documented as of this encounter Care Teams Rn Social Services Relationship Specialty Start Date End Date Ana Gillespie APRN [address] [place] [address] PCP - General Family Medicine 02/03/19 documented as of this encounter
--- OUTSIDE RECORDS SUMMARY | 2024-02-29 21:29 | XMS_ITS | Encounter Summary ---
Author Organization [facility] Address [facility] [place] [address] Care Team Providers Care Mathematics Instructor Name Role Phone Ana Gillespie VAUGHN Primary Care Provider [phone] Encounter Details Date Type Department Care Team (Late st Contact Info) Description 08/08/2022 12:05 AM EDT Ancillary Procedure Radiology Library at [facility] [place] [address] Social History Tobacco Use Types Packs/Day Years [...] PM EDT Office Visit Cardiology at [address] [address] Milagros Hernandez MD [facility] [place] [address] Scheduled Procedures Name Priority Associated Diagnoses Date/Ti [...] is for storage only. Ayo Serna MD [facility] FILM LIBRARY ORD ERABLES documented in this encounter Visit Diagnoses Not on filedocumented in this encounter Care Teams Mathematics Instructor Relationship Specialty Start Date End Date Ana Gillespie APRN [address] [place] [address] PCP - General Family Medicine 02/03/19 documented as of this encounter
--- OUTSIDE RECORDS SUMMARY | 2024-02-29 21:29 | XMS_ITS | Encounter Summary ---
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
--- OUTSIDE RECORDS SUMMARY | 2024-02-29 21:29 | XMS_ITS | Encounter Summary ---
Author Organization [facility] Address [facility] [place] [address] Care Team Providers Care Floral Department Specialist Name Role Phone Ana Gillespie APRN Primary Care Provider [phone] Encounter Details Date Type Department Care Team (Late st Contact Info) Description 06/23/2022 Telephone [place] [address] Chiquita James, RN Social History [...] PM EDT Office Visit Cardiology at [address] [phone] [facility] [place] [address] Scheduled Procedures Name Priority Associated Diagnoses Date/Ti me EGD, UPPER GI ENDOSCOPY (WRV U 2.09) Peptic stricture of esophagus documented as of this encounter Visit Diagnoses Not on filedocumented in this encounter Care Teams Floral Department Specialist Relationship Specialty Start Date End Date Ana Gillespie APRN [address] [place] [address] PCP - General Family Medicine 02/03/19 documented as of this encounter
--- OUTSIDE RECORDS SUMMARY | 2024-02-29 21:29 | XMS_ITS | Encounter Summary ---
Author Organization [facility] [place] [address] Care Team Providers Care Gas Torch Brazier Name Role Phone Ana Gillespie APRN Primary Care Provider [phone] Encounter Details Date Type Department Care Team (Late st Contact Info) Description 05/25/2022 Telephone Gastroenterology at [facility] [place] [phone] Jaymie Bass Social History Tobacco Use Types [...] - 05/25/2022 12:22 PM EST Jennifer Irving [id number] EGD with Anesthesia within 1 week per [...] your procedure. Who will likely be your road driver for the procedure? yes *Please Verify [...] PM EDT Office Visit Cardiology at [address] [address] Milagros Hernandez MD [facility] [place] [address] Scheduled Procedures Name Priority Associated Diagnoses Date/Ti me EGD, UPPER GI ENDOSCOPY (WRV U 2.09) Peptic stricture of esophagus documented as of this encounter Visit Diagnoses Not on filedocumented in this encounter Care Teams Gas Torch Brazier Relationship Specialty Start Date End Date nAa Gillespie APRN [address] [place] [address] PCP - General Family Medicine 02/03/19 documented as of this encounter
--- OUTSIDE RECORDS SUMMARY | 2024-02-29 21:29 | XMS_ITS | Encounter Summary ---
Author Organization [facility] Address [facility] [place] [address] Care Team Providers Care Dormitory Keeper Name Role Phone Ana Gillespie APRN Primary Care Provider [phone] Encounter Details Date Type Department Care Team (Late st Contact Info) Description 09/29/2022 Telephone [place] [phone] Elsie Erickson APRN [facility] [place] [address] Social History Tobacco Use Types Packs/Day Years [...] PM EDT Office Visit Cardiology at [address] [phone] Milagros Hernandez MD [facility] [place] [address] Scheduled Procedures Name Priority Associated Diagnoses Date/Ti me EGD, UPPER GI ENDOSCOPY (WRV U 2.09) Peptic stricture of esophagus documented as of this encounter Visit Diagnoses Not on filedocumented in this encounter Care Teams Dormitory Keeper Relationship Specialty Start Date End Date Ana Gillespie APRN [address] [place] [address] PCP - General Family Medicine 02/03/19 documented as of this encounter
--- OUTSIDE RECORDS SUMMARY | 2024-02-29 21:29 | XMS_ITS | Encounter Summary ---
Author Organization [facility] [place] [address] Care Team Providers Care Thermostat Machine Tender Name Role Phone Ana Gillespie VAUGHN Primary Care Provider [phone] Reason for Visit * Auth/Cert (Routine) Specialty Diagnoses / Procedures Referred By Esperanza rodríguez Referred To Contact Diagnoses Shock CARDIOGENIC PULMONARY EDEMA Procedures ER Carlos Melton MD [facility] [place] [address] [facility] Referral ID Status Reason Start Date Expiration Date Visits Re quested Visits Authorized [id number] 1 1 Encounter Details Date Type Department Care Team (Latest Contact Info) Description 08/15/2022 9:15 AM EDT - 08/15/2022 11:59 PM EDT Hospital Encounter [place] [address] Discharge Disposition: Home Social History Tobacco Use [...] meter kit. 1 each 0 12/14/2014 Insulin Enon, Disposable, (BD INSULIN PEN NEEDLE UF MINI) 31 x 07/23 NeedleIndications:Di abetes mellitus type 2, uncontrolled 1 Device by [facility].(Non-Drug; Combo Route) route 3 times daily as [...] PM EDT Office Visit Cardiology at [address] [address] Milagros Hernandez MD [facility] [place] [address] Scheduled Procedures Name Priority Associated Diagnoses Date/Ti [...] 1960 ? Height: 152 cm ? Account: [id number] Age: 62 yrs ? Weight: 69 kg Gender: Female ?BSA: 1.7 m2 Ordering Physician: VENKAT^M Referring Physician: NIURKA AYALA Performed By: Raissa Bhakta RDCS Reason For Study: Septic shock Exam Location: [facility]. Interpretation Summary -Left ventricle is mildly dilated. [...] today's date, LVEF is slightly improved. Procedure Complete-36120. Satisfactory quality. There is normal sinus rhythm. [...] Date: 309:38 AMBP: 102/54 mmHg Patient Location: [id number] HR: 99 : 1960 Height: 152 cm Account: [id number] Age: 62 yrs Weight: 69 kg Gender: Female BSA: 1.7 m2 Ordering Physician: VENKAT^Johanny Referring Physician: NIURKA AYALA Performed By: Raissa Bhakta RDCS Reason For Study: Septic shock Exam Location: [facility]. Interpretation Summary -Left ventricle is mildly dilated. [...] today's date, LVEF is slightly improved. Procedure Complete-51838. Satisfactory quality. There is normal sinus rhythm. [...] E/ e' (lat): 9.3 Med Peak E' Jacyk: 4.8 cm/sec E/e' (med): 10.6 E/e' Average: [...] documented as of this encounter Care Teams Thermostat Machine Tender Relationship Specialty Start Date End Date Ana Gillespie APRN [address] [place] [address] PCP - General Family Medicine 02/03/19 documented as of this encounter
--- OUTSIDE RECORDS SUMMARY | 2024-02-29 21:29 | XMS_ITS | Encounter Summary ---
Author Organization [facility] Address [facility] [place] [address] Care Team Providers Care Fur Tanner Name Role Phone Ana Gillespie VAUGHN Primary Care Provider [phone] Encounter Details Date Type Department Care Team (Late st Contact Info) Description 03/31/2022 10:15 AM EST - 03/31/2022 10:45 AM EST Surgery Gastroenterology at [facility] [place] [address] David Dejesus MD [facility] [place] [address] EGD WITH BIOPSY (WRVU 2.39) Social History [...] the day after the procedure, use an qdhi-pxp-rzcuupl spray to numb your throat. Sucking on [...] occurs, please contact your Doctor. Please call [phone] before 8pm Mon-Fri with problems, questions or concerns. If you call after 8pm or on weekends, call the Hospital at [phone] and ask to speak to the Bobbin Fixer application development specialist and the winchman/crane operator will contact that person for you. When should you call for help? Call 330 anytime you think you may need emergency [...] any problems. Where can you learn more? [facility] View your After Visit Summary and more online at [email or web address] If you would like to provide feedback about your hospital experience, please call the Office of Patient and Family Relations at . If you have received this After Visit Summary in error, please immediately return it in person to the department, or notify the [facility] Privacy Office by calling toll free at between the hours of 8AM and 5PM to arrange for our retrieval of the documents at no cost to you. Content Version: 12.2 ?? 8532-3620 [employer]. Care instructions adapted under license by [facility]. If you have questions about a medical condition or this instruction, always ask your healthcare professional. [employer] disclaims any warranty or liability for your [...] meter kit. 1 each 0 12/14/2014 Insulin Yeaddiss, Disposable, (BD INSULIN PEN NEEDLE UF MINI) [...] PM EDT Office Visit Cardiology at [address] [address] Milagros Hernandez MD [facility] [place] [address] Scheduled Procedures Name Priority Associated Diagnoses Date/Ti [...] 10:21 AM EST Endoscopic Us Exam, Esoph ([id number]) 03/31/2022 9:59 AM EST Schedule EGD in two years Upper Gi Endoscopy, Biopsy ([id number]) 03/31/2022 9:59 AM EST Schedule EGD in two years UPPER GI ENDOSCOPY Routine 03/31/2022 9: 56 AM EST POCT GLUCOSE Routine 03/31/2022 9:18 AM EST documented in this encounter Results * Specimen to Pathology (03/31/2022 10:36 AM EST) AP Specimen 03/31/2022 10:3 6 AM EST 03/31/2022 10:36 AM EST Narrative [facility] - 03/31/2022 10:36 AM EST Specimen requisition ordered. ??Separate Pathology report to follow David Dejesus MD PATHOLOGY/CYTOLOGY ORDERABLES [facility] [place] [address] * Specimen to Pathology (03/31/2022 10:36 AM EST) AP Specimen 03/31/2022 10:3 6 AM EST 03/31/2022 10:36 AM EST Narrative [facility] - 03/31/2022 10:36 AM EST Specimen requisition ordered. ??Separate Pathology report to follow David Dejesus MD PATHOLOGY/CYTOLOGY ORDERABLES Performing Organization Address City/[facility] [address]/[facility] Co de Phone Number [facility] [place] [address] * Specimen to Pathology (03/31/2022 10:36 AM EST) AP Specimen 03/31/2022 10:3 6 AM EST 03/31/2022 10:36 AM EST Narrative [facility] - 03/31/2022 10:36 AM EST Specimen requisition ordered. ??Separate Pathology report to follow David Dejesus MD PATHOLOGY/CYTOLOGY ORDERABLES Performing Organization Address [facility] [address]/[facility] Co de Phone Number [facility] [place] [address] * Specimen to Pathology (03/31/2022 10:36 AM EST) AP Specimen 03/31/2022 10:3 6 AM EST 03/31/2022 10:36 AM EST Narrative [facility] - 03/31/2022 10:36 AM EST Specimen requisition ordered. ??Separate Pathology report to follow David Dejesus MD PATHOLOGY/CYTOLOGY ORDERABLES Performing Organization Address [facility] [address]/[facility] Co de Phone Number [facility] [place] [address] * Specimen to Pathology (03/31/2022 10:36 AM EST) AP Specimen 03/31/2022 10:3 6 AM EST 03/31/2022 10:36 AM EST Narrative [facility] - 03/31/2022 10:36 AM EST Specimen requisition ordered. ??Separate Pathology report to follow David Dejesus MD PATHOLOGY/CYTOLOGY ORDERABLES Performing Organization Address City/[facility] [address]/[facility] Co de Phone Number [facility] [place] [address] * Specimen to Pathology (03/31/2022 10:36 AM EST) AP Specimen 03/31/2022 10:3 6 AM EST 03/31/2022 10:36 AM EST Narrative [facility] - 03/31/2022 10:36 AM EST Specimen requisition ordered. ??Separate Pathology report to follow David Dejesus MD PATHOLOGY/CYTOLOGY ORDERABLES Performing Organization Address [facility] [address]/[facility] [place] [place] [address] * Specimen to Pathology (03/31/2022 10:36 AM EST) AP Specimen 03/31/2022 10:3 6 AM EST 03/31/2022 10:36 AM EST Narrative [facility] - 03/31/2022 10:36 AM EST Specimen requisition ordered. ??Separate Pathology report to follow David Dejesus MD PATHOLOGY/CYTOLOGY ORDERABLES Performing Organization Address [facility] [address]/[facility] [place] [address] * Surgical Pathology Report (03/31/2022 10:21 AM EST) Pathologist [facility] Final Diagnosis [id number] ? Location: 4; 08; A The signing [...] Verified: ??04/09/2022 9:14 ?? Pathologist Performed at: ??-[facility] Dept. [place]ology, [place] [address] Research Manager: Vishal Gilliam MD, FCAP, ??CLIA Certificate: [id number] SPECIMEN(S) SUBMITTED A - Esophagus at 30 [...] labeled G1. ??sns 04/09/2022 9:14 AM EST [facility] GI Biopsy 03/31/2022 10:2 [...] PATHOLOGY/CYTOLOGY ORDERABLES [facility] [place] [address] * UPPER GI ENDOSCOPY (03/31/2022 9:56 AM EST) UPPER GI ENDOSCOPY [facility] Endoscopy Procedure Date: 03/31/2022 9:56 AM ? Patient Name: Jennifer Irving ? Date of : 1960 ? Age: 61 ? Order #: [id number] ? Instrument Name: [id number] ? Procedure: ? Upper GI endoscopy Indications: ? Follow-up of Farrell's esophagus Providers: ? David Dejesus MD, Trell Key. ? Ivone, Eligio Sadler RN, Kenna ? [place] Referring MD: ?Ana Keith: ? Monitored Anesthesia [...] Glucose, POC 180 65 - 199 mg/dL [facility] Comment: Supplemental ranges: <140 mg/dL before meals <180 mg/dL all other times of the day Blood 03/31/2022 9:18 AM EST 03/31/2022 9:18 AM EST David Dejesus MD POINT OF CARE TEST ORDERABLES [facility] [place] [address] documented in this encounter Visit Diagnoses Not [...] CRNA) documented in this encounter Care Teams Fur Tanner Relationship Specialty Start Date End Date Ana Gillespie APRN [address] [place] [address] PCP - General Family Medicine 02/03/19 documented as of this encounter
--- OUTSIDE RECORDS SUMMARY | 2024-02-29 21:29 | XMS_ITS | Encounter Summary ---
Author Organization [facility] Address [facility] [place] [address] Care Team Providers Care Rod Puller Name Role Phone Ana Gillespie VAUGHN Primary Care Provider [phone] Encounter Details Date Type Department Care Team (Late st Contact Info) Description 08/13/2022 Ancillary Procedure Radiology Library [place] [facility] [address] Social History Tobacco Use Types Packs/Day Years [...] PM EDT Office Visit Cardiology at [address] [address] Milagros Hernandez MD [facility] [address] Scheduled Procedures Name Priority Associated Diagnoses Date/Ti [...] is for storage only. Ayo Serna MD [facility] FILM LIBRARY ORD ERABLES documented in this encounter Visit Diagnoses Not on filedocumented in this encounter Care Teams Rod Puller Relationship Specialty Start Date End Date Ana Gillespie APRN [address] [place] [address] PCP - General Family Medicine 02/03/19 documented as of this encounter
--- OUTSIDE RECORDS SUMMARY | 2024-02-29 21:29 | XMS_ITS | Encounter Summary ---
[place] [address] Care Team Providers Care Manager House Name Role Phone Ana Gillespie VAUGHN Primary Care Provider Encounter Details Date Type Department Care Team (Late st Contact Info) Description 05/28/2022 Telephone [place] [phone] Chiquita James, RN Social History Tobacco Use [...] PM EDT Office Visit Cardiology at [address] [phone] Milagros Hernandez MD [facility] [place] [address] Scheduled Procedures Name Priority Associated Diagnoses Date/Ti me EGD, UPPER GI ENDOSCOPY (WRV U 2.09) Peptic stricture of esophagus documented as of this encounter Visit Diagnoses Not on filedocumented in this encounter Care Teams Manager House Relationship Specialty Start Date End Date Ana Gillespie APRN [address] [place] [address] PCP - General Family Medicine 02/03/19 documented as of this encounter
--- OUTSIDE RECORDS SUMMARY | 2024-02-29 21:29 | XMS_ITS | Encounter Summary ---
Author Organization [facility] Address [facility] [place] [address] Care Team Providers Care Casino Gaming Inspector Name Role Phone Ana Gillespie VAUGHN Primary Care Provider [phone] Encounter Details Date Type Department Care Team (Latest Contact Info) Description 07/03/2022 7:08 AM EST - 07/03/2022 10:05 AM EST Hospital Encounter Gastroenterology at [facility], [place] [address] David Dejesus MD [facility] [place] [place] [address] Discharge Disposition: Home Social History Tobacco Use [...] Care Everywhere. * EGD (Upper Endoscopy): Post-op (Ugandan) documented in this encounter Medications at Time [...] meter kit. 1 each 0 12/14/2014 Insulin [place], Disposable, (BD INSULIN PEN NEEDLE UF MINI) 31 x 3/16 NeedleIndications:Di abetes mellitus type 2, uncontrolled 1 Device by [facility]Non-Drug; [...] for dosing. 15 mL 11 ??? Insulin [place], Disposable, (BD INSULIN PEN NEEDLE UF MINI) [...] PM EDT Office Visit Cardiology at [address] [address] Milagros Hernandez MD [facility] [place] [address] Scheduled Procedures Name Priority Associated Diagnoses Date/Ti nh EGD, UPPER GI ENDOSCOPY (WRV U 2.09) Peptic stricture of esophagus documented as of this encounter Procedures Procedure Name Priority Date/Time Associated Diagnosis Comments SURGICAL PATHOLOGY REPORT Routine 07/03/2022 9:02 AM EST SPECIMEN TO PATHOLOGY Routine 07/03/2022 9:02 AM EST SPECIMEN TO PATHOLOGY Routine 07/03/2022 9:02 AM EST Upper Gi Endoscopy, Biopsy ([id number]) 07/03/2022 8:39 AM EST Farrell's esophagus without dysplasia POCT GLUCOSE Routine 07/03/2022 7:37 AM EST UPPER GI ENDOSCOPY Routine 07/03/2022 7: 26 AM EST documented in this encounter Results * Surgical Pathology Report (07/03/2022 9:02 AM EST) Final Diagnosis [id number] ? Location: 4T; EA11; A The signing [...] Note). Note: Immunostains for p53, CD31 and [id number] were evaluated for final diagnosis. Electronically signed by: ?Chinmay Nguyen MD Verified: ??07/08/2022 16:29 ??Pathologist Performed at: ??-[facility] Dept. of Pathology, [place] [address] Construction Job Titles: Vishal Gilliam MD, FCAP, ??CLIA Certificate: [id number] ADDITIONAL STUDIES Immunohistochemistry Studies: Formalin-fixed, paraffin-embedded tissue [...] note ? CD31 ? see note ? [id number] ? see note SPECIMEN(S) SUBMITTED A - [...] Dejesus MD PATHOLOGY/CYTOLOGY ORDERABLES Performing Organization Address [facility]/State/[facility] Co de Phone Number [facility] [place] [address] [facility] [place] [address] * Specimen to Pathology (07/03/2022 9:02 AM EST) AP Specimen 07/03/2022 9:02 AM EST 07/03/2022 9:02 AM EST Narrative [facility] - 07/03/2022 9:02 AM EST Specimen requisition ordered. ??Separate Pathology report to follow David Dejesus MD PATHOLOGY/CYTOLOGY ORDERABLES Performing Organization Address City/[facility]/ZIP Co de Phone Number [facility] [place] [address] * Specimen to Pathology (07/03/2022 9:02 AM EST) AP Specimen 07/03/2022 9:02 AM EST 07/03/2022 9:02 AM EST Narrative [facility] - 07/03/2022 9:02 AM EST Specimen requisition ordered. ??Separate Pathology report to follow David Dejeuss MD PATHOLOGY/CYTOLOGY ORDERABLES Performing Organization Address City/[facility]/ZIP Co de Phone Number [facility] [place] [address] * POCT Glucose (07/03/2022 7:37 AM EST) Glucose, POC 139 65 - 199 mg/dL [facility] Comment: Supplemental ranges: <140 mg/dL before meals <180 mg/dL all other times of the day Blood 07/03/2022 7:37 AM EST 07/03/2022 7:37 AM EST David Dejesus MD POINT OF CARE TEST ORDERABLES Performing Organization Address [facility] [place] [address] * UPPER GI ENDOSCOPY (07/03/2022 7:26 AM EST) UPPER GI ENDOSCOPY [facility] Endoscopy Procedure Date: 07/03/2022 7:26 AM ? Patient Name: Jennifer Irving ? Date of : 1960 ? Age: 62 ? Order #: [id number] ? Instrument Name: [id number] ? Procedure: ? Upper GI endoscopy Indications: [...] PROVATION 07/03/2022 7:26 AM EST Ana Gillespie CV TECH GENERAL SURGICAL ORD ERABLES PROVATION documented in [...] CRNA) documented in this encounter Care Teams Casino Gaming Inspector Relationship Specialty Start Date End Date Ana Gillespie APRN [address] [place] [address] PCP - General Family Medicine 02/03/19 documented as of this encounter
--- OUTSIDE RECORDS SUMMARY | 2024-02-29 21:29 | XMS_ITS | Encounter Summary ---
Author Organization [facility] [place] [address] Care Team Providers Care Cnc Router Operator Name Role Phone Ana Gillespie APRN Primary Care Provider [phone] Encounter Details Date Type Department Care Team (Late st Contact Info) Description 05/25/2022 Orders [place] [address] David Dejesus MD [facility] [address] Farrell's esophagus without dysplasia Social History Tobacco [...] PM EDT Office Visit Cardiology at [address] [phone] Milagros Hernandez MD [facility] [place] [address] Scheduled Procedures Name Priority Associated Diagnoses Date/Ti me EGD, UPPER GI ENDOSCOPY (WRV U 2.09) Peptic stricture of esophagus documented as of this encounter Visit Diagnoses Diagnosis Farrell's esophagus without dysplasia Farrell's esophagus documented in this encounter Care Teams Cnc Router Operator Relationship Specialty Start Date End Date Ana Gillespie APRN [address] [place] [address] PCP - General Family Medicine 02/03/19 documented as of this encounter
--- OUTSIDE RECORDS SUMMARY | 2024-02-29 21:29 | XMS_ITS | Encounter Summary ---
Author Organization [facility] [place] [address] Care Team Providers Care Welding Equipment Sales Representative Name Role Phone Ana Gillespie APRN Primary Care Provider [phone] Encounter Details Date Type Department Care Team [...] PM EDT Office Visit Cardiology at [address] [address] Milagros Hernandez MD [facility] [place] [address] Scheduled Procedures Name Priority Associated Diagnoses Date/Ti me EGD, UPPER GI ENDOSCOPY (WRV U 2.09) Peptic stricture of esophagus documented as of this encounter Visit Diagnoses Not on filedocumented in this encounter Care Teams Welding Equipment Sales Representative Relationship Specialty Start Date End Date Ana Gillespie APRN [address] [place] [address] PCP - General Family Medicine 02/03/19 documented as of this encounter
--- OUTSIDE RECORDS SUMMARY | 2024-02-29 21:29 | XMS_ITS | Encounter Summary ---
Author Organization [facility] Address [facility] [address] Care Team Providers Care Appellate Conferee Name Role Phone Ana Gillespie VAUGHN Primary Care Provider [phone] Encounter Details Date Type Department Care Team (Late st Contact Info) Description 08/08/2022 12:10 AM EDT Ancillary Procedure Radiology Library at [facility] [place] [address] Social History Tobacco Use Types Packs/Day Years [...] PM EDT Office Visit Cardiology at [address] [address] Milagros Hernandez MD [facility] [place] [address] Scheduled Procedures Name Priority Associated Diagnoses Date/Ti [...] is for storage only. Ayo Serna MD [facility] FILM LIBRARY ORD ERABLES documented in this encounter Visit Diagnoses Not on filedocumented in this encounter Care Teams Appellate Conferee Relationship Specialty Start Date End Date Ana Gillespie APRN [address] [place] [address] PCP - General Family Medicine 02/03/19 documented as of this encounter
--- OUTSIDE RECORDS SUMMARY | 2024-02-29 21:29 | XMS_ITS | Encounter Summary ---
Author Organization [facility] Address [facility] [place] [address] Care Team Providers Care Global Director Air And Climate Change Name Role Phone Jose Miguel Ana CONSUMER ADVOCATE Primary Care Provider [phone] Encounter Details Date Type Department Care Team (Late st Contact Info) Description 08/10/2022 Ancillary Procedure Radiology Library at [facility] [place] [address] Ana Gillespie APRN [address] [place] [address] Social History Tobacco Use Types [...] PM EDT Office Visit Cardiology at [address] [place] [address] Milagros Hernandez MD [facility] [place] [address] Scheduled Procedures Name Priority Associated Diagnoses Date/Ti [...] FILM LIBRARY ORD ERABLES Performing Organization Address City/State/[facility] Co de Phone Number [place], [place] documented in this encounter Visit Diagnoses Not on filedocumented in this encounter Care Teams Global Director Air And Climate Change Relationship Specialty Start Date End Date Ana Gillespie APRN [address] [place] [address] PCP - General Family Medicine 02/03/19 documented as of this encounter
--- OUTSIDE RECORDS SUMMARY | 2024-02-29 21:29 | XMS_ITS | Encounter Summary ---
Author Organization [facility] Address [facility] [place] [address] Care Team Providers Care Coremaking Machine Operator Name Role Phone Jose Miguel Ana ROTOPRINTER Primary Care Provider [phone] Encounter Details Date Type Department Care Team (Late st Contact Info) Description 08/08/2022 Ancillary Procedure Radiology Library at [facility] [place] [address] Ana Gillespie APRN [address] [place] [address] Social History Tobacco Use Types [...] PM EDT Office Visit Cardiology at [address] [place] [address] Milagros Hernandez MD [facility] [place] [address] Scheduled Procedures Name Priority Associated Diagnoses Date/Ti [...] FILM LIBRARY ORD ERABLES Performing Organization Address City/State/[facility] Co de Phone Number [place], [place] documented in this encounter Visit Diagnoses Not on filedocumented in this encounter Care Teams Coremaking Machine Operator Relationship Specialty Start Date End Date Ana Gillespie APRN [address] [place] [address] PCP - General Family Medicine 02/03/19 documented as of this encounter
--- OUTSIDE RECORDS SUMMARY | 2024-02-29 21:29 | XMS_ITS | Encounter Summary ---
Author Organization [facility] [address] Care Team Providers Care Bridge Tender Name Role Phone Ana Gillespie VAUGHN Primary Care Provider [phone] Encounter Details Date Type Department Care Team (Late st Contact Info) Description 08/15/2022 [place] [address] Unknown None Social History Tobacco Use Types [...] PM EDT Office Visit Cardiology at [address] [address] Milagros Hernandez MD [facility] [place] [address] Scheduled Procedures Name Priority Associated Diagnoses Date/Ti [...] on filedocumented in this encounter Care Teams Bridge Tender Relationship Specialty Start Date End Date Ana Gillespie APRN [address] [place] [address] PCP - General Family Medicine 02/03/19 documented as of this encounter
--- OUTSIDE RECORDS SUMMARY | 2024-02-29 21:29 | XMS_ITS | Encounter Summary ---
Author Organization [facility] Address [facility] [place] [address] Care Team Providers Care Title Lawyer Name Role Phone Ana Gillespie VAUGHN Primary Care Provider [phone] Encounter Details Date Type Department Care Team (Late st Contact Info) Description 08/12/2022 12:05 AM EDT Ancillary Procedure Radiology Library at [facility] [place] [address] Social History Tobacco Use Types Packs/Day Years [...] PM EDT Office Visit Cardiology at [address] [address] Milagros Hernandez MD [facility] [place] [address] Scheduled Procedures Name Priority Associated Diagnoses Date/Ti [...] on filedocumented in this encounter Care Teams Title Lawyer Relationship Specialty Start Date End Date Ana Gillespie APRN [address] [place] [address] PCP - General Family Medicine 02/03/19 documented as of this encounter
--- OUTSIDE RECORDS SUMMARY | 2024-02-29 21:29 | XMS_ITS | Encounter Summary ---
Author Organization [facility] Address [facility] [place] [address] Care Team Providers Care Field Auditor Name Role Phone Ana Gillespie VAUGHN Primary Care Provider Encounter Details Date Type Department Care Team (Late st Contact Info) Description 08/08/2022 12:15 AM EDT Ancillary Procedure Radiology Library at [facility] [place] [address] Social History Tobacco Use Types Packs/Day Years [...] PM EDT Office Visit Cardiology at [address] [address] Milagros Hernadnez MD [facility] [place] [address] Scheduled Procedures Name Priority Associated Diagnoses Date/Ti [...] filedocumented in this encounter Care Teams Field Auditor Relationship Specialty Start Date End Date Ana Gillespie APRN [address] [place] [address] PCP - General Family Medicine 02/03/19 documented as of this encounter
--- OUTSIDE RECORDS SUMMARY | 2024-02-29 21:29 | XMS_ITS | Encounter Summary ---
Author Organization [facility] Address [facility] [place] [address] Care Team Providers Care Still Operator Gin Name Role Phone Ana Gillespie VAUGHN Primary Care Provider [phone] Encounter Details Date Type Department Care Team (Latest Contact Info) Description 05/21/2022 2:30 PM EST TH Visit (TeleHealth) [place] [address] Alfonso Rose MD [facility] [place] [address] Neuroleptic-induced parkinsonism Social History Tobacco Use Types [...] us on an as-needed basis. This was [id number] call with greater than 10 minutes spent in counseling discussion regarding the above assessment and plan, with additional 10 minutes in review of the medical record. documented in this encounter Plan of Treatment Upcoming Encounters Date Type Department Care Team (Late st Contact Info) Description 03/10/2024 4:00 PM EDT Office Visit Cardiology at [address] [address] Milagros Hernandez MD [facility] [place] [address] Scheduled Procedures Name Priority Associated Diagnoses Date/Ti me EGD, UPPER GI ENDOSCOPY (WRV U 2.09) Peptic stricture of esophagus documented as of this encounter Visit Diagnoses Diagnosis Neuroleptic-induced parkinsonism Secondary Parkinsonism documented in this encounter Care Teams Still Operator Gin Relationship Specialty Start Date End Date Ana Gillespie APRN [address] [place] [address] PCP - General Family Medicine 02/03/19 documented as of this encounter
--- OUTSIDE RECORDS SUMMARY | 2024-02-29 21:29 | XMS_ITS | Encounter Summary ---
Author Organization [facility] Address [facility] [place] [address] Care Team Providers Care Community Center Worker Name Role Phone Ana Gillespie MEASUREMENT SUPERINTENDENT Primary Care Provider [phone] Encounter Details Date Type Department Care Team (Late st Contact Info) Description 08/24/2022 Orders [place] [address] [address] [facility] [place] [address] Social History Tobacco Use Types Packs/Day Years [...] PM EDT Office Visit Cardiology at [address] [phone] Milagros Hernandez MD [facility] [place] [address] Scheduled Procedures Name Priority Associated Diagnoses Date/Ti me EGD, UPPER GI ENDOSCOPY (WRV U 2.09) Peptic stricture of esophagus documented as of this encounter Visit Diagnoses Not on filedocumented in this encounter Care Teams Community Center Worker Relationship Specialty Start Date End Date Ana Gillespie APRN [address] [place] [address] PCP - General Family Medicine 02/03/19 documented as of this encounter
--- OUTSIDE RECORDS SUMMARY | 2024-02-29 21:29 | XMS_ITS | Encounter Summary ---
Author Organization [facility] Address [facility] [place] [address] Care Team Providers Care Engineering Tech Name Role Phone Ana Gillespie VAUGHN Primary Care Provider [phone] Encounter Details Date Type Department Care Team (Late st Contact Info) Description 08/12/2022 Ancillary Procedure Radiology Library at [facility] [place] [address] Social History Tobacco Use Types Packs/Day Years [...] PM EDT Office Visit Cardiology at [address] [address] Milagros Hernandez MD [facility] [place] [address] Scheduled Procedures Name Priority Associated Diagnoses Date/Ti [...] is for storage only. Ayo Serna MD [facility] FILM LIBRARY ORD ERABLES documented in this encounter Visit Diagnoses Not on filedocumented in this encounter Care Teams Engineering Tech Relationship Specialty Start Date End Date Ana Gillespie APRN [address] [place] [address] PCP - General Family Medicine 02/03/19 documented as of this encounter
--- OUTSIDE RECORDS SUMMARY | 2024-02-29 21:29 | XMS_ITS | Encounter Summary ---
[place] [address] Care Team Providers Care Telesales Supervisor Name Role Phone Ana Gillespie VAUGHN Primary Care Provider [phone] Reason for Referral * Diagnostic Test (Routine) - Closed Specialty Diagnoses / Procedures Referred By Contac t Referred To Contact Cardiology Diagnoses Sepsis, due to unspecified organism, unspecified whether acute organ dysfunction present Procedures Mobile Sergey Chaparro MD [address] [facility] [place] [address] [facility] [place] [address] Referral ID Status Reason Start Date Expiration Date V isits Requested Visits Authorized [id number] Closed Specialty Service Requested 08/14/2022 08/14/2023 1 1 Reason for Visit * Diagnostic Test (Routine) - Closed Specialty Diagnoses / Procedures Referred By Contac t Referred To Contact Cardiology Diagnoses Sepsis, due to unspecified organism, unspecified whether acute organ dysfunction present Procedures Mobile Sergey Chaparro MD [address] [facility] [place] [address] [facility] [place] [address] Referral ID Status Reason Start Date Expiration Date V isits Requested Visits Authorized [id number] Closed Specialty Service Requested 08/14/2022 08/14/2023 1 1 Encounter Details Date Type Department Care Team (Late st Contact Info) Description 08/14/2022 3:35 PM EDT - 08/14/2022 9:29 PM EDT Hospital Encounter Mobile Echocardiography [facility] [place] [address] Sergey Ayala MD [facility] [place] [address] Sepsis, due to unspecified organism, unspecified whether [...] strips. 300 each 3 12/14/2014 Blood-Glucose Meter (Standing CloudUCH ULTRA2) KitIndications:Type 2 diabetes mellitus, uncontrolled by Other route. 1 = one blood glucose meter kit. 1 each 0 12/14/2014 Insulin [place], Disposable, (BD INSULIN PEN NEEDLE UF MINI) 31 x 3/16 NeedleIndications:Di abetes mellitus type 2, uncontrolled 1 Device by [facility].(Non-Drug; Combo Route) route 3 [...] PM EDT Office Visit Cardiology at [address] [address] Milagros Hernandez MD [facility] [place] [address] Scheduled Procedures Name Priority Associated Diagnoses Date/Ti [...] 1960 ? Height: 152 cm ? Account: [id number] Age: 62 yrs ? Weight: 69 kg Gender: Female ?BSA: 1.7 m2 Ordering Physician: SERGEY AYALA Referring Physician: SEGREY AYALA Performed By: MARGAUX Reason For Study: Sepsis Exam Location: [facility]. Interpretation Summary 1. Left ventricular systolic [...] 4. No pericardial effusion No prior Procedure Complete-04541. Suboptimal quality. Left Ventricle Left ventricle is [...] Berg MD - 08/17/2022 Echocardiogram Report Name: SALO JENNIFER [place] Study Date:08/14/2022 01:47 PMBP: 115/77 mmHg Patient Location: [facility]^CV24^A : 1960 Height: 152 cm Account: [id number] Age: 62 yrs Weight: 69 kg Gender: Female BSA: 1.7 m2 Ordering Physician: SERGEY AYALA Referring Physician: SERGEY YAALA Performed By: MARGAUX Reason For Study: Sepsis Exam Location: [facility]. Interpretation Summary 1. Left ventricular systolic [...] 4. No pericardial effusion No prior Procedure Complete-50833. Suboptimal quality. Left Ventricle Left ventricle is [...] present documented in this encounter Care Teams Telesales Supervisor Relationship Specialty Start Date End Date Ana Gillespie APRN [address] [place] [address] PCP - General Family Medicine 02/03/19 documented as of this encounter
--- OUTSIDE RECORDS SUMMARY | 2024-02-29 21:29 | XMS_ITS | Encounter Summary ---
Author Organization [facility] Address [facility] [place] [address] Care Team Providers Care Nut Steamer Name Role Phone Jose Miguel Ana BEAD WORKER SEWING Primary Care Provider Encounter Details Date Type Department Care Team (Late st Contact Info) Description 08/09/2022 Ancillary Procedure Radiology Library at [facility] [place] [address] Ana Gillespie APRN [address] [place] [address] Social History Tobacco Use Types [...] PM EDT Office Visit Cardiology at [address] [place] [address] Milagros Hernandez MD [facility] [place] [address] Scheduled Procedures Name Priority Associated Diagnoses Date/Ti me EGD, UPPER GI ENDOSCOPY (WRV U 2.09) Peptic stricture of esophagus documented as of this encounter Procedures Procedure Name Priority Date/Time Associated Diagnosis Comments FILM LIBRARY FLUORO OR E-FAR-HGEYGVM ONLY Routine 08/09/2022 12:00 AM EDT documented in this encounter Results * Film Library - Fluoro or C Arm Storage Only (08/09/2022 12:00 AM EDT) Narrative QUIRINO - 08/14/2022 6:05 PM EDT This exam is auto-finalizing. It's purpose is for storage only. Ana Gillespie APRN IMG FILM LIBRARY ORD ERABLES Performing Organization Address City/State/[facility] Co de Phone Number [place], [place] documented in this encounter Visit Diagnoses Not on filedocumented in this encounter Care Teams Nut Steamer Relationship Specialty Start Date End Date Ana Gillespie APRN [address] [place] [address] PCP - General Family Medicine 02/03/19 documented as of this encounter
--- OUTSIDE RECORDS SUMMARY | 2024-02-29 21:30 | XMS_ITS | Encounter Summary ---
Author Organization [facility] Address [facility] [place] [address] Care Team Providers Care Shell Shop Supervisor Name Role Phone Ana Gillespie VAUGHN Primary Care Provider Encounter Details Date Type Department Care Team (Late st Contact Info) Description 12/28/2019 Telephone [place] [address] Rober Tobin Social History Tobacco [...] Office Visit Cardiology at [address] [address] Milagros Hernandez MD [facility] [place] [address] Scheduled Procedures Name Priority Associated Diagnoses Date/Ti me EGD, UPPER GI ENDOSCOPY (WRV U 2.09) Peptic stricture of esophagus documented as of this encounter Visit Diagnoses Not on filedocumented in this encounter Care Teams Shell Shop Supervisor Relationship Specialty Start Date End Date Ana Gillespie APRN [address] [place] [address] PCP - General Family Medicine 02/03/19 documented as of this encounter
--- OUTSIDE RECORDS SUMMARY | 2024-02-29 21:30 | XMS_ITS | Encounter Summary ---
Author Organization [facility] [place] [address] Care Team Providers Care Recovery Analyst Name Role Phone Ana Gillespie VAUGHN Primary Care Provider [phone] Encounter Details Date Type Department Care Team (Late st Contact Info) Description 07/07/2021 Telephone [place] [phone] Ting Patton Social History Tobacco Use Types [...] PM EDT Office Visit Cardiology at [address] [phone] Milagros Hernandez MD [facility] [place] [address] Scheduled Procedures Name Priority Associated Diagnoses Date/Ti me EGD, UPPER GI ENDOSCOPY (WRV U 2.09) Peptic stricture of esophagus documented as of this encounter Visit Diagnoses Not on filedocumented in this encounter Care Teams Recovery Analyst Relationship Specialty Start Date End Date Ana Gillespie APRN [address] [place] [address] PCP - General Family Medicine 02/03/19 documented as of this encounter
--- OUTSIDE RECORDS SUMMARY | 2024-02-29 21:30 | XMS_ITS | Encounter Summary ---
[place] [address] Care Team Providers Care Car Bracer Name Role Phone Ana Gillespie VAUGHN Primary Care Provider [phone] Encounter Details Date Type Department Care Team (Late st Contact Info) Description 11/20/2021 Telephone [place] [address] Chiquita James, RN Social History [...] states they have called multiple times to [phone], and been on hold upwards of 45 [...] PM EDT Office Visit Cardiology at [address] [address] Milagros Hernandez MD [facility] [place] [address] Scheduled Procedures Name Priority Associated Diagnoses Date/Ti me EGD, UPPER GI ENDOSCOPY (WRV U 2.09) Peptic stricture of esophagus documented as of this encounter Visit Diagnoses Not on filedocumented in this encounter Care Teams Car Bracer Relationship Specialty Start Date End Date Ana Gillespie APRN [address] [place] [address] PCP - General Family Medicine 02/03/19 documented as of this encounter
--- OUTSIDE RECORDS SUMMARY | 2024-02-29 21:30 | XMS_ITS | Encounter Summary ---
Author Organization [facility] Address [facility] [place] [address] Care Team Providers Care Slab Conditioner Supervisor Name Role Phone Ana Gillespie VAUGHN Primary Care Provider [phone] Encounter Details Date Type Department Care Team (Late st Contact Info) Description 09/29/2021 Telephone [place] [phone] David Dejesus MD [facility] [place] [address] Social History Tobacco Use Types Packs/Day Years [...] PM EDT Office Visit Cardiology at [address] [phone] Milagros Hernandez MD [facility] [place] [address] Scheduled Procedures Name Priority Associated Diagnoses Date/Ti me EGD, UPPER GI ENDOSCOPY (WRV U 2.09) Peptic stricture of esophagus documented as of this encounter Visit Diagnoses Not on filedocumented in this encounter Care Teams Slab Conditioner Supervisor Relationship Specialty Start Date End Date Ana Gillespie APRN [address] [place] [address] PCP - General Family Medicine 02/03/19 documented as of this encounter
--- OUTSIDE RECORDS SUMMARY | 2024-02-29 21:30 | XMS_ITS | Encounter Summary ---
Author Organization [facility] Address [facility] [place] [address] Care Team Providers Care Assistant Professor Of Biochemistry Name Role Phone Ana Gillespie VAUGHN Primary Care Provider Reason for Visit * Auth/Cert Specialty Diagnoses / Procedures Referred By Esperanza rodríguez Referred To Contact Diagnoses esophagitis - please schedule in mid August Procedures PRO UPPER GI ENDOSCOPY, DIAGNOSTIC EGD, UPPER GI ENDOSCOPY Referral ID Status Reason Start Date Expiration Date Visits Re quested Visits Authorized [id number] 1 1 Encounter Details Date Type Department Care Team (Latest Contact Info) Description 09/09/2021 1:21 PM EDT - 09/09/2021 9:08 PM EDT Hospital Encounter [place] [address] David Dejesus MD [facility] [place] [address] Discharge Disposition: Home Social History Tobacco Use [...] meter kit. 1 each 0 12/14/2014 Insulin [place], Disposable, (BD INSULIN PEN NEEDLE UF MINI) [...] PM EDT Office Visit Cardiology at [address] [address] Milagros Hernandez MD [facility] [place] [address] Scheduled Procedures Name Priority Associated Diagnoses Date/Ti me EGD, UPPER GI ENDOSCOPY (WRV U 2.09) Peptic stricture of esophagus documented as of this encounter Visit Diagnoses Not on filedocumented in this encounter Care Teams Assistant Professor Of Biochemistry Relationship Specialty Start Date End Date Ana Gillespie APRN [address] [place] [address] PCP - General Family Medicine 02/03/19 documented as of this encounter
--- OUTSIDE RECORDS SUMMARY | 2024-02-29 21:30 | XMS_ITS | Encounter Summary ---
Author Organization [facility] [place] [address] Care Team Providers Care Desktop Publishing Associate Name Role Phone Ana Gillespie APRN Primary Care Provider [phone] Encounter Details Date Type Department Care Team (Late st Contact Info) Description 09/23/2021 12:02 PM EDT Anesthesia Event [place] [address] [facility] [place] [address] [facility] [place] [address] Anesthesia Record Procedure Summary Procedure Name Responsible [...] 1131; median cubital vein (antecubital fossa), right; nqon-hss-wkztpk catheter system; 20 gauge; Lilliana HWANG; tolerated [...] Procedure Summary Date: 09/23/21 Room / Location: [facility] ENDO 2 / [facility] ENDOSCOPY Anesthesia Start: 1202 Anesthesia Stop: 1224 Procedure: EGD WITH BIOPSY (WRVU 2.49) (N/A Trunk) Diagnosis: Gastroesophageal reflux disease with esophagitis without hemorrhage (esophagitis - please schedule in mid August) Surgeons: David Dejesus MD Responsible Provider: Keyana Short MD Anesthesia Type: MAC ASA Status: 3 All Anesthesia Providers: Anesthesiologist: Keyana Short MD TRANSFER MAN: Kyaw Yusuf CRNA Vitals Value Taken Time BP 139/82 09/23/21 1310 Temp Pulse Resp 18 09/23/21 1310 SpO2 100 % 09/23/21 1315 Pain Level 0 09/23/21 1310 Vitals shown include unvalidated device data. Patient Location: PACU/[facility] Level of Consciousness: Awake and [...] MD at [facility] ENDOSCOPY ??? PRO COLONOSCOPY, DIAGNOSTIC N/A 03/01/2020 COLONOSCOPY, DIAGNOSTIC performed by David Dejesus MD at [facility] ENDOSCOPY ??? PRO UPPER GI ENDOSCOPY, BIOPSY N/A 04/03/2014 UPPER GASTROINTESTINAL ENDOSCOPY,WITH BIOPSY SINGLE OR MULTIPLE performed by David Dejesus MDat [facility] ENDOSCOPY ??? PRO UPPER GI ENDOSCOPY, BIOPSY N/A 03/20/2016 EGD WITH BIOPSY performed by David Dejesus MD at [facility] ENDOSCOPY ??? PRO UPPER GI ENDOSCOPY, BIOPSY N/A 11/22/2018 EGD WITH BIOPSY (WRVU 2.49) performed by David Dejesus MD at [facility] ENDOSCOPY ??? PRO UPPER GI ENDOSCOPY, BIOPSY N/A 03/01/2020 UPPER GASTROINTESTINAL ENDOSCOPY,WITH BIOPSY SINGLE OR MULTIPLE (WRVU 2.49) performed by David Dejesus MD at [facility] ENDOSCOPY ??? PRO UPPER GI ENDOSCOPY, DIAGNOSTIC N/A 04/03/2014 EGD, UPPER GI ENDOSCOPY performed by David Dejesus MD at [facility] ENDOSCOPY ??? PRO UPPER GI ENDOSCOPY, DIAGNOSTIC N/A 03/01/2020 EGD, UPPER GI ENDOSCOPY performed by David Dejesus MD at [facility] ENDOSCOPY Social History Tobacco Use [...] risks discussed with patient. Plan discussed with TRANSFER MAN. Anesthesia Screening documented in this encounter Plan of Treatment Upcoming Encounters Date Type Department Care Team (Late st Contact Info) Description 03/10/2024 4:00 PM EDT Office Visit Cardiology at [address] [address] [facility] [place] [address] Scheduled Procedures Name Priority Associated Diagnoses Date/Ti [...] mg documented in this encounter Care Teams Desktop Publishing Associate Relationship Specialty Start Date End Date Ana Gillespie APRN [address] [place] [address] PCP - General Family Medicine 02/03/19 documented as of this encounter
--- OUTSIDE RECORDS SUMMARY | 2024-02-29 21:30 | XMS_ITS | Encounter Summary ---
Author Organization [facility] Address [facility] [place] [address] Care Team Providers Care Speed Winder Name Role Phone Ana Gillespie VAUGHN Primary Care Provider [phone] Reason for Visit * Consultation (Routine) - Closed Specialty Diagnoses / Procedures Referred By Esperanza rodríguez Referred To Contact Neurology Diagnoses Primary parkinsonism David Dejesus MD [facility] [place] [address] [facility] Neurology [address] [place] [address] Referral ID Status Reason Start Date Expiration Date V isits Requested Visits Authorized [id number] Closed Consult, Test & Treat 09/23/2021 09/23/2022 1 1 Encounter Details Date Type Department Care Team (Late st Contact Info) Description 02/12/2022 11:00 AM EDT [place] [address] Alfonso Rose MD [facility] [place] [address] Neuroleptic-induced parkinsonism Social History Tobacco [...] Jennifer Irving Provider: Alfonso Rose MD PhD ([id number]) Vis: February 12, 2022 Requesting Physician: David [...] at [facility] ENDOSCOPY Social History Social History [...] for dosing. 15 mL 11 ??? Insulin [place], Disposable, (BD INSULIN PEN NEEDLE UF MINI) [...] Coordination: ?? Finger to nose: intact ?? Xbqq-zels-qnte: intact ?? Tandem: intact ?? Gait: ?? [...] PM EDT Office Visit Cardiology at [address] [address] Milagros Hernandez MD [facility] [place] [address] Scheduled Procedures Name Priority Associated Diagnoses Date/Ti me EGD, UPPER GI ENDOSCOPY (WRV U 2.09) Peptic stricture of esophagus Scheduled Referrals Name Type Priority Associated Diagnoses Orde r Schedule Referral to Neurology Outpatient Referral Routine Primary Parkinsonism Ordered: 09/23/2021 documented as of this encounter Visit Diagnoses Diagnosis Neuroleptic-induced parkinsonism Secondary Parkinsonism documented in this encounter Care Teams Speed Winder Relationship Specialty Start Date End Date Ana Gillespie APRN [address] [place] [address] PCP - General Family Medicine 02/03/19 documented as of this encounter
--- OUTSIDE RECORDS SUMMARY | 2024-02-29 21:30 | XMS_ITS | Encounter Summary ---
Author Organization [facility] [place] [address] Care Team Providers Care Tosser Name Role Phone Ana Gillespie VAUGHN Primary Care Provider [phone] Encounter Details Date Type Department Care Team (Late st Contact Info) Description 01/28/2022 Telephone Gastroenterology at [facility] [place] [address] Ting Patton Social History Tobacco Use Types [...] - 01/28/2022 12:14 PM EDT Jennifer Irving [id number] Diagnosis/Indication: Schedule EGD in two years Please [...] your procedure. Who will likely be your delivery route driver for the procedure? *Please Verify the [...] PM EDT Office Visit Cardiology at [address] [address] Milagros Hernandez MD [facility] [place] [address] Scheduled Procedures Name Priority Associated Diagnoses Date/Ti me EGD, UPPER GI ENDOSCOPY (WRV U 2.09) Peptic stricture of esophagus documented as of this encounter Visit Diagnoses Not on filedocumented in this encounter Care Teams Tosser Relationship Specialty Start Date End Date Ana Gillespie APRN [address] [place] [address] PCP - General Family Medicine 02/03/19 documented as of this encounter
--- OUTSIDE RECORDS SUMMARY | 2024-02-29 21:30 | XMS_ITS | Encounter Summary ---
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 She needs this to be sent to the [place] [facility] [employer] for medical issue. Forwarded for review documented in this encounter Plan of Treatment Upcoming Encounters Date Type Department Care Team (Late st Contact Info) Description 03/10/2024 4:00 PM EDT Office Visit Cardiology at [address] [address] Milagros Hernandez MD [facility] [place] [address] Scheduled Procedures Name Priority Associated Diagnoses Date/Ti me EGD, UPPER GI ENDOSCOPY (WRV U 2.09) Peptic stricture of esophagus documented as of this encounter Visit Diagnoses Not on filedocumented in this encounter Care Teams Farmworkers Relationship Specialty Start Date End Date Ana Gillespie APRN [address] [place] [address] PCP - General Family Medicine 02/03/19 documented as of this encounter
--- OUTSIDE RECORDS SUMMARY | 2024-02-29 21:30 | XMS_ITS | Encounter Summary ---
Author Organization [facility] Address [facility] [place] [address] Care Team Providers Care Makeup Instructor Name Role Phone Ana Gillespie VAUGHN Primary Care Provider [phone] Encounter Details Date Type Department Care Team (Latest Contact Info) Description 03/01/2020 6:57 AM EDT - 03/01/2020 10:26 AM EDT Hospital Encounter Gastroenterology at [facility] [place] [address] David Dejesus MD [facility] [place] [address] Discharge Disposition: Home Social History Tobacco Use [...] the day after the procedure, use an ditr-qmi-dvmaqex spray to numb your throat. Sucking on [...] occurs, please contact your Doctor. Please call [phone] before 8pm Mon-Fri with problems, questions or concerns. If you call after 8pm or on weekends, call the Hospital at [phone] and ask to speak to the Travel Ticketing Reviewer environmental services associate and the lime kiln operator will contact that person for you. [...] any problems. Where can you learn more? [facility] View your After Visit Summary and more online at [email or web address] If you would like to provide feedback about your hospital experience, please call the Office of Patient and Family Relations at . If you have received this After Visit Summary in error, please immediately return it in person to the department, or notify the [facility] Privacy Office by calling toll free at between the hours of 8AM and 5PM to arrange for our retrieval of the documents at no cost to you. Content Version: 12.2 ?? 4880-7158 Memoir. Care instructions adapted under license by [facility]. If you have questions about a medical condition or this instruction, always ask your healthcare professional. Memoir disclaims any warranty or liability for your [...] occurs, please contact your Doctor. Please call [phone] before 8pm Mon-Fri with problems, questions or concerns. If you call after 8pm or on weekends, call the Hospital at [phone] and ask to speak to the Travel Ticketing Reviewer environmental services associate and the lime kiln operator will contact that person for you. When should you call for help? Call 259 anytime you think you may need emergency [...] any problems. Where can you learn more? [facility] View your After Visit [...] cost to you. Content Version: 12.2 ?? 7970-1337 Memoir. Care instructions adapted under license by [facility]. If you have questions about a medical condition or this instruction, always ask your healthcare professional. Memoir disclaims any warranty or liability for your [...] kit. 1 each 0 12/14/2014 Insulin [place], Disposable, (BD INSULIN PEN NEEDLE UF MINI) 31 x 3/16 NeedleIndications:Di abetes mellitus type 2, uncontrolled 1 Device by [facility].(Non-Drug; Combo Route) route 3 times [...] by mouth daily. ??? Blood Sugar Diagnostic (Pontis ULTRA TEST) Strip 1 each by Other [...] meter kit. 1 each 0 ??? Insulin [place], Disposable, (BD INSULIN PEN NEEDLE UF MINI) 31 x 3/16 Needle 1 Device by [facility].(Non-Drug; Combo Route) route 3 times [...] PM EDT Office Visit Cardiology at [address] [address] Milagros Hernandez MD [facility] [place] [address] Scheduled Procedures Name Priority Associated Diagnoses Date/Ti [...] 8:42 AM EDT Upper Gi Endoscopy, Biopsy (27434) 03/01/2020 8:36 AM EDT needs egd/colonoscopy for GERD and screening colo rojelio Colonoscopy, Diagnostic (44552) 03/01/2020 8:36 AM EDT needs egd/colonoscopy for GERD and screening colo rojelio Upper GI Endoscopy, Diagnostic (30721) 03/01/2020 8:36 AM EDT needs egd/colonoscopy for GERD and screening colo rojelio UPPER GI ENDOSCOPY Routine 03/01/2020 7: 47 AM EDT COLONOSCOPY Routine 03/01/2020 7:22 AM EDT documented in this encounter Results * Surgical Pathology Report (03/01/2020 8:42 AM EDT) Final Diagnosis [id number] ? Location: 4T; EA06; A The signing [...] Hill MD Verified: ??03/10/2020 ?Pathologist Performed at: ??-[facility] Dept. of Pathology, [place], [place] SPECIMEN(S) SUBMITTED A - 28 cm, [...] cassette labeled D1. ??sns 03/10/2020 12:01 PM [facility] GI Biopsy 03/01/2020 8:42 AM EDT 03/01/2020 8:42 AM EDT GI Biopsy 03/01/2020 8:42 AM EDT 03/01/2020 8:42 AM EDT GI Biopsy 03/01/2020 8:42 AM EDT 03/01/2020 8:42 AM EDT GI Biopsy 03/01/2020 8:42 AM EDT 03/01/2020 8:42 AM EDT David Dejesus MD PATHOLOGY/[place] [address] * Specimen to Pathology (03/01/2020 8:42 AM EDT) AP Specimen 03/01/2020 8:42 AM EDT 03/01/2020 8:42 AM EDT Narrative [facility] - 03/01/2020 8:42 AM EDT Specimen requisition ordered. ??Separate Pathology report to follow David Dejesus MD PATHOLOGY/[place] [address] * Specimen to Pathology (03/01/2020 8:42 AM EDT) AP Specimen 03/01/2020 8:42 AM EDT 03/01/2020 8:42 AM EDT Narrative [facility] - 03/01/2020 8:42 AM EDT Specimen requisition ordered. ??Separate Pathology report to follow David Dejesus MD PATHOLOGY/CYTOLOGY ORDERABLES Performing Organization Address City/[facility]/[place] [address] * Specimen to Pathology (03/01/2020 8:42 AM EDT) AP Specimen 03/01/2020 8:42 AM EDT 03/01/2020 8:42 AM EDT Narrative [facility] - 03/01/2020 8:42 AM EDT Specimen requisition ordered. ??Separate Pathology report to follow David Dejesus MD PATHOLOGY/CYTOLOGY ORDERABLES Performing Organization Address City/[facility]/[place] [address] * Specimen to Pathology (03/01/2020 8:42 AM EDT) AP Specimen 03/01/2020 8:42 AM EDT 03/01/2020 8:42 AM EDT Narrative [facility] - 03/01/2020 8:42 AM EDT Specimen requisition ordered. ??Separate Pathology report to follow David Dejesus MD PATHOLOGY/CYTOLOGY ORDERABLES Performing Organization Address [facility]/ZIP Co de Phone Number [facility] [place] [address] * UPPER GI ENDOSCOPY (03/01/2020 7:47 AM EDT) UPPER GI ENDOSCOPY [facility] Endoscopy Procedure Date: 03/01/2020 7:47 AM ? Patient Name: eJnnifer Irving ? Date of : 1960 ? Age: 59 ? Order #: [id number] ? Instrument Name: [id number] ? Procedure: ? Upper GI endoscopy Indications: [...] * COLONOSCOPY (03/01/2020 7:22 AM EDT) COLONOSCOPY [facility] Endoscopy Procedure Date: 03/01/2020 7:22 AM ? Patient Name: Jennifer Irving ? Date of : 1960 ? Age: 59 ? Order #: [id number] ? Instrument Name: [id number] ? Procedure: ? Colonoscopy Indications: ? Screening [...] CRNA) documented in this encounter Care Teams Makeup Instructor Relationship Specialty Start Date End Date Ana Gillespie APRN [address] [place] [address] PCP - General Family Medicine 02/03/19 documented as of this encounter
--- OUTSIDE RECORDS SUMMARY | 2024-02-29 21:30 | XMS_ITS | Encounter Summary ---
Author Organization [facility] [place] [address] Care Team Providers Care Quality Worker Name Role Phone Ana Gillespie VAUGHN Primary Care Provider [phone] Reason for Visit * Reason Onset Date Comments Appointment 11/28/2020 Encounter Details Date Type Department Care Team (Late st Contact Info) Description 11/28/[address] [place] [phone] Evelin Novak I Appointment Social History Tobacco [...] PM EDT Office Visit Cardiology at [address] [phone] Milagros Hernandez MD [facility] [place] [address] Scheduled Procedures Name Priority Associated Diagnoses Date/Ti me EGD, UPPER GI ENDOSCOPY (WRV U 2.09) Peptic stricture of esophagus documented as of this encounter Visit Diagnoses Not on filedocumented in this encounter Care Teams Quality Worker Relationship Specialty Start Date End Date Ana Gillespie APRN [address] [place] [address] PCP - General Family Medicine 02/03/19 documented as of this encounter
--- OUTSIDE RECORDS SUMMARY | 2024-02-29 21:30 | XMS_ITS | Encounter Summary ---
Author Organization [facility] [address] Care Team Providers Care Sales Enablement Manager Name Role Phone Ana Gillespie VAUGHN Primary Care Provider [phone] Encounter Details Date Type Department Care Team (Late st Contact Info) Description 07/14/2021 Telephone [place] [address] Chiquita James, RN Social History Tobacco Use [...] PM EDT Office Visit Cardiology at [address] [phone] Milagros Hernandez MD [facility] [place] [address] Scheduled Procedures Name Priority Associated Diagnoses Date/Ti me EGD, UPPER GI ENDOSCOPY (WRV U 2.09) Peptic stricture of esophagus documented as of this encounter Visit Diagnoses Not on filedocumented in this encounter Care Teams Sales Enablement Manager Relationship Specialty Start Date End Date Ana Gillespie APRN [address] [place] [address] PCP - General Family Medicine 02/03/19 documented as of this encounter
--- OUTSIDE RECORDS SUMMARY | 2024-02-29 21:30 | XMS_ITS | Encounter Summary ---
Author Organization [facility] [place] [address] Care Team Providers Care Directional Drill Operator Name Role Phone Ana Gillespie APRN Primary Care Provider [phone] Encounter Details Date Type Department Care Team (Late st Contact Info) Description 12/01/2021 Telephone [place] [phone] Alla Mejia Social History Tobacco Use Types [...] - 12/01/2021 4:07 PM EDT Jennifer Irving [id number] Diagnosis/Indication: folow-up esophagitis Please review patient chart [...] No 18. You must have a responsible green party who will drive you to your procedure, stay on campus for the entire duration of your procedure, and drive you home from your procedure. Who will likely be your auto carrier driver for the procedure? *Please Verify the [...] PM EDT Office Visit Cardiology at [address] [address] Milagros Hernandez MD [facility] [place] [address] Scheduled Procedures Name Priority Associated Diagnoses Date/Ti me EGD, UPPER GI ENDOSCOPY (WRV U 2.09) Peptic stricture of esophagus documented as of this encounter Visit Diagnoses Not on filedocumented in this encounter Care Teams Directional Drill Operator Relationship Specialty Start Date End Date Ana Gillespie APRN [address] [place] [address] PCP - General Family Medicine 02/03/19 documented as of this encounter
--- OUTSIDE RECORDS SUMMARY | 2024-02-29 21:30 | XMS_ITS | Encounter Summary ---
Author Organization [facility] Address [facility] [place] [address] Care Team Providers Care Health Safety And Environment Manager Name Role Phone Ana Gillespie VAUGHN Primary Care Provider [phone] Encounter Details Date Type Department Care Team (Late st Contact Info) Description 09/23/2021 12:30 PM EDT - 09/23/2021 1:00 PM EDT [place] [phone] David Dejesus MD [facility] [place] [place] [address] EGD WITH BIOPSY (WRVU 2.39) Social History [...] the day after the procedure, use an zsdb-pxb-svzdqwo spray to numb your throat. Sucking on [...] occurs, please contact your Doctor. Please call [phone] before 8pm Mon-Fri with problems, questions or concerns. If you call after 8pm or on weekends, call the Hospital at [phone] and ask to speak to the Fireboat Operator termite control servicer and the furnace charging machine operator will contact that person for [...] Where can you learn more? [facility] View your After Visit Summary and more online at [email or web address] If you would like to [...] cost to you. Content Version: 12.2 ?? [id number] [employer]. Care instructions adapted under license by [facility]. If you have questions about a medical condition or this instruction, always ask your healthcare professional. [employer] disclaims any warranty or liability for your [...] meter kit. 1 each 0 12/14/2014 Insulin [place], Disposable, (BD INSULIN PEN NEEDLE UF MINI) [...] 2 times daily. ??? Blood Sugar Diagnostic (OBX Computing CorporationTOUCH ULTRA TEST) Strip 1 each by Other [...] for dosing. 15 mL 11 ??? Insulin [place], Disposable, (BD INSULIN PEN NEEDLE UF MINI) 31 x 3/16 Needle 1 Device by [facility].(Non-Drug; Combo Route) route 3 times daily as needed. 100 each 11 ??? lithium 300 mg Capsule Take 1,000 mg by mouth daily. ??? PARoxetine (PAXIL) 40 mg Tablet Take 20 mg by mouth every morning. ??? esomeprazole (NEXIUM) 40 mg Capsule, Delayed Release(E.C.) Take 1 capsule by mouth 2 times daily. 180 capsule 3 ??? Blood-Glucose Meter (OBX Computing CorporationTOUCH ULTRA2) Kit by Other route. 1 = [...] PM EDT Office Visit Cardiology at [address] [address] Milagros Hernandez MD [facility] [place] [address] Scheduled Procedures Name Priority Associated Diagnoses Date/Ti me EGD, UPPER GI ENDOSCOPY (WRV U 2.09) Peptic stricture of esophagus documented as of this encounter Procedures Procedure Name Priority Date/Time Associated Diagnosis Comments SURGICAL PATHOLOGY REPORT Routine 09/23/2021 12:24 PM EDT SPECIMEN TO PATHOLOGY Routine 09/23/2021 12:24 PM EDT SPECIMEN TO PATHOLOGY Routine 09/23/2021 12:24 PM EDT Upper Gi Endoscopy, Biopsy ([id number]) 09/23/2021 12:02 PM EDT Gastroesophageal reflux disease with esophagitis without hemorrhage UPPER GI ENDOSCOPY Routine 09/23/2021 11 :52 AM EDT documented in this encounter Results * Surgical Pathology Report (09/23/2021 12:24 PM EDT) Final Diagnosis ? Location: 4; [facility]; A The signing pathologist has (i) examined [...] Jeniffer Verified: ??09/26/2021 19:44 ??Pathologist Performed at: ??-[facility] Dept. of Pathology, [place], [place] SPECIMEN(S) SUBMITTED A - Distal esophagus [...] labeled B1-B2. ??shb 09/26/2021 7:44 PM EDT [facility] GI Biopsy 09/23/2021 12:2 4 PM EDT 09/23/2021 12:24 PM EDT GI Biopsy 09/23/2021 12:2 4 PM EDT 09/23/2021 12:24 PM EDT David Dejesus MD PATHOLOGY/CYTOLOGY ORDERABLES Performing Organization Address City/[facility]/ZIP Co de Phone Number [facility] [place] [address] * Specimen to Pathology (09/23/2021 12:24 PM EDT) AP Specimen 09/23/2021 12:2 4 PM EDT 09/23/2021 12:24 PM EDT Narrative [facility] - 09/23/2021 12:24 PM EDT Specimen requisition ordered. ??Separate Pathology report to follow David Dejesus MD PATHOLOGY/CYTOLOGY ORDERABLES Performing Organization Address City/[facility]/ZIP Co de Phone Number [facility] [place] [address] * Specimen to Pathology (09/23/2021 12:24 PM EDT) AP Specimen 09/23/2021 12:2 4 PM EDT 09/23/2021 12:24 PM EDT Narrative [facility] - 09/23/2021 12:24 PM EDT Specimen requisition ordered. ??Separate Pathology report to follow David Dejesus MD PATHOLOGY/CYTOLOGY ORDERABLES Performing Organization Address City/[facility]/ZIP Co de Phone Number [facility] [place] [address] * UPPER GI ENDOSCOPY (09/23/2021 11:52 AM EDT) Pathologist [facility] UPPER GI ENDOSCOPY [facility] Endoscopy Procedure Date: 09/23/2021 11:52 AM ? Patient Name: Jennifer Irving ? Date of : 1960 ? Age: 61 ? Order #: [id number] ? Instrument Name: [id number] ? Procedure: ? Upper GI endoscopy Indications: ? Heartburn Providers: ? David Dejesus MD, Neej J. ? [address], ? Theodora Farrell, Peg Driver Referring MD: ?Ana Keith: ? Monitored Anesthesia [...] 09/23/2021 11:5 2 AM EDT Ana Gillespie HAT CHECKER GENERAL SURGICAL ORD ERABLES PROVATION documented in [...] RN) documented in this encounter Care Teams Health Safety And Environment Manager Relationship Specialty Start Date End Date Ana Gillespie APRN [address] [place] [address] PCP - General Family Medicine 02/03/19 documented as of this encounter
--- OUTSIDE RECORDS SUMMARY | 2024-02-29 21:30 | XMS_ITS | Encounter Summary ---
Author Organization [facility] Address [facility] [place] [address] Care Team Providers Care Supervisor Riveting Name Role Phone Ana Gillespie APRN Primary Care Provider [phone] Encounter Details Date Type Department Care Team (Late st Contact Info) Description 01/27/2022 11:59 PM EDT Anesthesia [place] [phone] Violet Miguel MD [facility] [place] [address] Anesthesia Record Procedure Summary Procedure Name Responsible [...] MD at [facility] ENDOSCOPY Social History Tobacco Use [...] without issue Plan BRODY Miguel MD 01/26/2022 Service Writer Pager #[phone] Informed Consent: Anesthesia Screening documented in this encounter Plan of Treatment Upcoming Encounters Date Type Department Care Team (Late st Contact Info) Description 03/10/2024 4:00 PM EDT Office Visit Cardiology at [address] [phone] Milagros Hernandez MD [facility] [place] [address] Scheduled Procedures Name Priority Associated Diagnoses Date/Ti me EGD, UPPER GI ENDOSCOPY (WRV U 2.09) Peptic stricture of esophagus documented as of this encounter Visit Diagnoses Not on filedocumented in this encounter Care Teams Supervisor Riveting Relationship Specialty Start Date End Date Ana Gillespie APRN [address] [place] [address] PCP - General Family Medicine 02/03/19 documented as of this encounter
--- OUTSIDE RECORDS SUMMARY | 2024-02-29 21:30 | XMS_ITS | Encounter Summary ---
[place] [address] Care Team Providers Care Steel Construction Worker Name Role Phone Ana Gillespie VAUGHN Primary Care Provider [phone] Encounter Details Date Type Department Care Team (Late st Contact Info) Description 07/18/2021 Telephone [place] [address] Chiquita James, RN Social History [...] PM EDT Office Visit Cardiology at [address] [phone] Milagros Hernandez MD [facility] [place] [address] Scheduled Procedures Name Priority Associated Diagnoses Date/Ti me EGD, UPPER GI ENDOSCOPY (WRV U 2.09) Peptic stricture of esophagus documented as of this encounter Visit Diagnoses Not on filedocumented in this encounter Care Teams Steel Construction Worker Relationship Specialty Start Date End Date Ana Gillespie APRN [address] [place] [address] PCP - General Family Medicine 02/03/19 documented as of this encounter
--- OUTSIDE RECORDS SUMMARY | 2024-02-29 21:30 | XMS_ITS | Encounter Summary ---
Author Organization [facility] [place] [address] Care Team Providers Care Finance Lead Name Role Phone Ana Gillespie APRN Primary Care Provider [phone] Encounter Details Date Type Department Care Team (Late Contact Info) Description 10/27/2021 Orders Only [place] [phone] David Dejesus MD [facility] [place] [address] Gastroesophageal reflux disease with esophagitis without hemorrhage [...] PM EDT Office Visit Cardiology at [address] [phone] Milagros Hernandez MD [facility] [place] [address] Scheduled Procedures Name Priority Associated Diagnoses Date/Ti me EGD, UPPER GI ENDOSCOPY (WRV U 2.09) Peptic stricture of esophagus documented as of this encounter Visit Diagnoses Diagnosis Gastroesophageal reflux disease with esophagitis without hemorrhage documented in this encounter Care Teams Finance Lead Relationship Specialty Start Date End Date Ana Gillespie APRN [address] [place] [address] PCP - General Family Medicine 02/03/19 documented as of this encounter
--- OUTSIDE RECORDS SUMMARY | 2024-02-29 21:30 | XMS_ITS | Encounter Summary ---
Author Organization [facility] [place] [address] Care Team Providers Care New Accounts Clerk Name Role Phone Ana Gillespie APRN Primary Care Provider [phone] Reason for Visit * Reason Onset Date Comments Medication Refill 10/20/2021 Encounter Details Date Type Department Care Team (Late st Contact Info) Description 10/20/2021 Refill [place] [phone] David Dejesus MD [facility] [place] [address] Gastroesophageal reflux disease with esophagitis without hemorrhage [...] PM EDT Office Visit Cardiology at [address] [phone] Milagros Hernandez MD [facility] [place] [address] Scheduled Procedures Name Priority Associated Diagnoses Date/Ti me EGD, UPPER GI ENDOSCOPY (WRV U 2.09) Peptic stricture of esophagus documented as of this encounter Visit Diagnoses Diagnosis Gastroesophageal reflux disease with esophagitis without hemorrhage documented in this encounter Care Teams New Accounts Clerk Relationship Specialty Start Date End Date Ana Gillespie APRN [address] [place] [address] PCP - General Family Medicine 02/03/19 documented as of this encounter
--- OUTSIDE RECORDS SUMMARY | 2024-02-29 21:30 | XMS_ITS | Encounter Summary ---
Author Organization [facility] [place] [address] Care Team Providers Care Community Organization Director Name Role Phone Ana Gillespie APRN Primary Care Provider [phone] Reason for Visit * Reason Onset Date Comments Medication Refill 07/15/2021 Encounter Details Date Type Department Care Team (Late st Contact Info) Description 07/15/2021 Refill [place] [phone] David Dejesus MD [facility] [place] [address] Gastroesophageal reflux disease with esophagitis without hemorrhage [...] PM EDT Office Visit Cardiology at [address] [phone] Milagros Hernandez MD [facility] [place] [address] Scheduled Procedures Name Priority Associated Diagnoses Date/Ti me EGD, UPPER GI ENDOSCOPY (WRV U 2.09) Peptic stricture of esophagus documented as of this encounter Visit Diagnoses Diagnosis Gastroesophageal reflux disease with esophagitis without hemorrhage documented in this encounter Care Teams Community Organization Director Relationship Specialty Start Date End Date Ana Gillespie APRN [address] [place] [address] PCP - General Family Medicine 02/03/19 documented as of this encounter
--- OUTSIDE RECORDS SUMMARY | 2024-02-29 21:30 | XMS_ITS | Encounter Summary ---
[place] [address] Care Team Providers Care Paragliding Instructor Name Role Phone Ana Gillespie VAUGHN Primary Care Provider [phone] Reason for Visit * Reason Onset Date Comments Prior Authorization 10/21/2021 Encounter Details Date Type Department Care Team (Late st Contact Info) Description 10/21/2021 Telephone [place] [address] Libby Liu CCMA Prior Authorization Social History [...] Prior Authorization 4L Gastroenterology / [place] [address] Subscriber Insurance: [place] Medicaid Phone: Fax: Physician: David Dejesus NPI: Return Pharmacy: Phone: Fax: Medication Requested: Pantoprazole Strength:40mg Frequency: Take 1 Tablet by mouth twice daily Disp.: Refills: Currently taking: yes Diagnosis for this medication: Farrell's, GERD ICD-10 code: (K22.70) (K21.00) Prior medications trialed in this patient: Esomeprazole, Pantoprazole 1x daily, 20mg, Sucralfate Medication: Outcome/Adverse Reactions:Treatment Failure Decision: Approved Tracking number/Case number/Reference number: [id number] Effective date: Start: 10/21/2021 End: 10/21/2022 documented in this encounter Plan of Treatment Upcoming Encounters Date Type Department Care Team (Late st Contact Info) Description 03/10/2024 4:00 PM EDT Office Visit Cardiology at [address] [address] Milagros Hernandez MD [facility] [place] [address] Scheduled Procedures Name Priority Associated Diagnoses Date/Ti me EGD, UPPER GI ENDOSCOPY (WRV U 2.09) Peptic stricture of esophagus documented as of this encounter Visit Diagnoses Not on filedocumented in this encounter Care Teams Paragliding Instructor Relationship Specialty Start Date End Date Ana Gillespie APRN [address] [place] [address] PCP - General Family Medicine 02/03/19 documented as of this encounter
--- OUTSIDE RECORDS SUMMARY | 2024-02-29 21:30 | XMS_ITS | Encounter Summary ---
Author Organization [facility] [place] [address] Care Team Providers Care Daub Color Mixer Name Role Phone Ana Gillespie VAUGHN Primary Care Provider [phone] Encounter Details Date Type Department Care Team (Late st Contact Info) Description 09/10/2021 Telephone [place] [address] Chiquita James, RN Social History [...] PM EDT Office Visit Cardiology at [address] [phone] Milagros Hernandez MD [facility] [address] Scheduled Procedures Name Priority Associated Diagnoses Date/Ti me EGD, UPPER GI ENDOSCOPY (WRV U 2.09) Peptic stricture of esophagus documented as of this encounter Visit Diagnoses Not on filedocumented in this encounter Care Teams Daub Color Mixer Relationship Specialty Start Date End Date Ana Gillespie APRN [address] [place] [address] PCP - General Family Medicine 02/03/19 documented as of this encounter
--- OUTSIDE RECORDS SUMMARY | 2024-02-29 21:30 | XMS_ITS | Encounter Summary ---
Author Organization [facility] Address [facility] [place] [address] Care Team Providers Care Dietary Assistant Name Role Phone Ana Gillespie VAUGHN Primary Care Provider Encounter Details Date Type Department Care Team (Latest Contact Info) Description 09/23/2021 11:01 AM EDT - 09/23/2021 1:32 PM EDT Hospital Encounter [place] [address] David Dejesus MD [facility] [place] [address] Discharge Disposition: Home Social History Tobacco Use [...] the day after the procedure, use an udjr-kxs-ntcbsmp spray to numb your throat. Sucking on [...] occurs, please contact your Doctor. Please call [phone] before 8pm Mon-Fri with problems, questions or concerns. If you call after 8pm or on weekends, call the Hospital at [phone] and ask to speak to the Fast Food Cook application defense manager and the tool shaper set up operator will contact that person for you. [...] Where can you learn more? [facility] View your After Visit Summary and more online at [email or web address] If you would like to provide feedback about your hospital experience, please call the Office of Patient and Family Relations at . If you have received this After Visit Summary in error, please immediately return it in person to the department, or notify the [facility] Privacy Office by calling toll free at between the hours of 8AM and 5PM to arrange for our retrieval of the documents at no cost to you. Content Version: 12.2 ?? [phone] [employer]. Care instructions adapted under license by [facility]. If you have questions about a medical condition or this instruction, always ask your healthcare professional. [employer] disclaims any warranty or liability for [...] kit. 1 each 0 12/14/2014 Insulin [place], Disposable, (BD INSULIN PEN NEEDLE UF MINI) [...] 2 times daily. ??? Blood Sugar Diagnostic (Invoiceable[employer]CH ULTRA TEST) Strip 1 each by Other [...] for dosing. 15 mL 11 ??? Insulin [place], Disposable, (BD INSULIN PEN NEEDLE UF MINI) [...] PM EDT Office Visit Cardiology at [address] [address] Milagros Hernandez MD [facility] [place] [address] Scheduled Procedures Name Priority Associated Diagnoses Date/Ti ct EGD, UPPER GI ENDOSCOPY (WRV U 2.09) Peptic stricture of esophagus documented as of this encounter Procedures Procedure Name Priority Date/Time Associated Diagnosis Comments SURGICAL PATHOLOGY REPORT Routine 09/23/2021 12:24 PM EDT SPECIMEN TO PATHOLOGY Routine 09/23/2021 12:24 PM EDT SPECIMEN TO PATHOLOGY Routine 09/23/2021 12:24 PM EDT Upper Gi Endoscopy, Biopsy ([id number]) 09/23/2021 12:02 PM EDT Gastroesophageal reflux disease with esophagitis without hemorrhage UPPER GI ENDOSCOPY Routine 09/23/2021 11 :52 AM EDT documented in this encounter Results * Surgical Pathology Report (09/23/2021 12:24 PM EDT) Final Diagnosis [id number] ? Location: 4; [facility]; A The signing pathologist has (i) [...] 19:44 ??Pathologist Performed at: ??-[facility] Dept. of Pathology, [place], [place] SPECIMEN(S) SUBMITTED [...] PM EDT [facility] GI Biopsy 09/23/2021 12:2 4 PM EDT 09/23/2021 12:24 PM EDT GI Biopsy 09/23/2021 12:2 4 PM EDT 09/23/2021 12:24 PM EDT David Dejesus MD PATHOLOGY/CYTOLOGY ORDERABLES Performing Organization Address City/[facility]/ZIP Co de Phone Number [facility] [place] [address] * Specimen to Pathology (09/23/2021 12:24 PM EDT) AP Specimen 09/23/2021 12:2 4 PM EDT 09/23/2021 12:24 PM EDT Narrative [facility] - 09/23/2021 12:24 PM EDT Specimen requisition ordered. ??Separate Pathology report to follow David Dejesus MD PATHOLOGY/CYTOLOGY ORDERABLES Performing Organization Address City/[facility]/ZIP Co de Phone Number [facility] [place] [address] * Specimen to Pathology (09/23/2021 12:24 PM EDT) AP Specimen 09/23/2021 12:2 4 PM EDT 09/23/2021 12:24 PM EDT Narrative [facility] - 09/23/2021 12:24 PM EDT Specimen requisition ordered. ??Separate Pathology report to follow David Dejesus MD PATHOLOGY/CYTOLOGY ORDERABLES Performing Organization Address City/[facility]/ZIP Co de Phone Number [facility] [place] [address] * UPPER GI ENDOSCOPY (09/23/2021 11:52 AM EDT) Pathologist [facility] UPPER GI ENDOSCOPY [facility] Endoscopy Procedure Date: 09/23/2021 11:52 AM ? Patient Name: Jennifer Irving ? Date of : 1960 ? Age: 61 ? Order #: [id number] ? Instrument Name: [id number] ? Procedure: ? Upper GI endoscopy Indications: ? Heartburn Providers: ? David Dejesus MD, Neej J. ? [address], ? Theodora Farrell, Process Supervisor Referring MD: ?Ana Keith: ? Monitored Anesthesia [...] 09/23/2021 11:5 2 AM EDT Ana Gillespie HEEL BRUSHER GENERAL SURGICAL ORD ERABLES PROVATION documented in [...] RN) documented in this encounter Care Teams Dietary Assistant Relationship Specialty Start Date End Date Ana Gillespie APRN [address] [place] [address] PCP - General Family Medicine 02/03/19 documented as of this encounter
--- OUTSIDE RECORDS SUMMARY | 2024-02-29 21:30 | XMS_ITS | Encounter Summary ---
Author Organization [facility] [place] [address] Care Team Providers Care Truckload Checker Name Role Phone Ana Gillespie APRN Primary Care Provider [phone] Reason for Visit * Reason Onset Date Comments Medication Refill 09/17/2020 Encounter Details Date Type Department Care Team (Late st Contact Info) Description 09/17/2020 Ref[place] [phone] David Dejesus MD [facility] [place] [address] Social History Tobacco Use Types Packs/Day Years [...] PM EDT Office Visit Cardiology at [address] [phone] Milagros Hernandez MD [facility] [place] [address] Scheduled Procedures Name Priority Associated Diagnoses Date/Ti me EGD, UPPER GI ENDOSCOPY (WRV U 2.09) Peptic stricture of esophagus documented as of this encounter Visit Diagnoses Not on filedocumented in this encounter Care Teams Truckload Checker Relationship Specialty Start Date End Date Ana Gillespie APRN [address] [place] [address] PCP - General Family Medicine 02/03/19 documented as of this encounter
--- OUTSIDE RECORDS SUMMARY | 2024-02-29 21:30 | XMS_ITS | Encounter Summary ---
Author Organization Formerly [facility] [place] [address] Care Team Providers Care Correctional Probation Officer Name Role Phone Ana Gillespie APRN Primary Care Provider [phone] Encounter Details Date Type Department Care Team (Late st Contact Info) Description 09/09/2021 11:59 PM EDT Anesthesia [place] [phone] Bel Villanueva MD [facility] [place] [address] Parris Steinberg CRNA [facility] [place] [address] Anesthesia Record Procedure Summary Procedure Name Responsible [...] BX performed by David Dejesus MD at [facility] ??? PRO COLONOSCOPY, DIAGNOSTIC N/A 03/01/2020 COLONOSCOPY, DIAGNOSTIC performed by David Dejesus MD at [facility] ??? PRO UPPER GI ENDOSCOPY, BIOPSY N/A 04/03/2014 UPPER GASTROINTESTINAL ENDOSCOPY,WITH BIOPSY SINGLE OR MULTIPLE performed by David Dejesus MDat [facility] ??? PRO UPPER GI ENDOSCOPY, BIOPSY N/A 03/20/2016 EGD WITH BIOPSY performed by David Dejesus MD at [facility] ??? PRO UPPER GI ENDOSCOPY, BIOPSY N/A 11/22/2018 EGD WITH BIOPSY (WRVU 2.49) performed by David Dejesus MD at [facility] ??? PRO UPPER GI ENDOSCOPY, BIOPSY N/A 03/01/2020 UPPER GASTROINTESTINAL ENDOSCOPY,WITH BIOPSY SINGLE OR MULTIPLE (WRVU 2.49) performed by David Dejesus MD at [facility] ??? PRO UPPER GI ENDOSCOPY, DIAGNOSTIC N/A 04/03/2014 EGD, UPPER GI ENDOSCOPY performed by David Dejesus MD at [facility] ??? PRO UPPER GI ENDOSCOPY, DIAGNOSTIC N/A 03/01/2020 EGD, UPPER GI ENDOSCOPY performed by David Dejesus MD at [facility] Social History Tobacco Use ??? [...] risks discussed with patient. Plan discussed with TOPOGRAPHICAL FIELD ASSISTANT. Anesthesia Screening documented in this encounter Plan of Treatment Upcoming Encounters Date Type Department Care Team (Late st Contact Info) Description 03/10/2024 4:00 PM EDT Office Visit Cardiology at [address] [address] Milagros Hernandez MD [facility] [place] [address] Scheduled Procedures Name Priority Associated Diagnoses Date/Ti me EGD, UPPER GI ENDOSCOPY (WRV U 2.09) Peptic stricture of esophagus documented as of this encounter Visit Diagnoses Not on filedocumented in this encounter Care Teams Correctional Probation Officer Relationship Specialty Start Date End Date Ana Gillespie APRN [address] [place] [address] PCP - General Family Medicine 02/03/19 documented as of this encounter
--- OUTSIDE RECORDS SUMMARY | 2024-02-29 21:30 | XMS_ITS | Encounter Summary ---
Author Organization [facility] [place] [address] Care Team Providers Care Terminal Carman Name Role Phone Ana Gillespie APRN Primary Care Provider [phone] Encounter Details Date Type Department Care Team (Late Contact Info) Description 06/25/2021 Orders [place] [phone] David Dejesus MD [facility] [place] [address] Gastroesophageal reflux disease with esophagitis without hemorrhage [...] PM EDT Office Visit Cardiology at [address] [phone] Milagros Hernandez MD [facility] [place] [address] Scheduled Procedures Name Priority Associated Diagnoses Date/Ti me EGD, UPPER GI ENDOSCOPY (WRV U 2.09) Peptic stricture of esophagus documented as of this encounter Visit Diagnoses Diagnosis Gastroesophageal reflux disease with esophagitis without hemorrhage documented in this encounter Care Teams Terminal Carman Relationship Specialty Start Date End Date Ana Gillespie APRN [address] [place] [address] PCP - General Family Medicine 02/03/19 documented as of this encounter
--- OUTSIDE RECORDS SUMMARY | 2024-02-29 21:30 | XMS_ITS | Encounter Summary ---
Author Organization [facility] Address [facility] [place] [address] Care Team Providers Care Operations Section Manager Name Role Phone Ana Gillespie MACHINE MAINTENANCE Primary Care Provider [phone] Encounter Details Date Type Department Care Team (Late st Contact Info) Description 09/16/2020 Orders [place] [phone] David Dejesus MD [facility] [place] [address] Social History Tobacco Use Types Packs/Day Years [...] PM EDT Office Visit Cardiology at [address] [phone] Milagros Hernandez MD [facility] [place] [address] Scheduled Procedures Name Priority Associated Diagnoses Date/Ti me EGD, UPPER GI ENDOSCOPY (WRV U 2.09) Peptic stricture of esophagus documented as of this encounter Visit Diagnoses Not on filedocumented in this encounter Care Teams Operations Section Manager Relationship Specialty Start Date End Date Ana Gillespie APRN [address] [place] [address] PCP - General Family Medicine 02/03/19 documented as of this encounter
--- OUTSIDE RECORDS SUMMARY | 2024-02-29 21:30 | XMS_ITS | Encounter Summary ---
Author Organization Formerly [facility] Address [facility] [place] [address] Care Team Providers Care Stain Dipper Name Role Phone Ana Gillespie AERIAL TRAM OPERATOR Primary Care Provider [phone] Encounter Details Date Type Department Care Team (Late st Contact Info) Description 08/04/2021 Orders [place] [phone] David Dejesus MD [facility] [place] [address] Social History Tobacco Use Types Packs/Day Years [...] PM EDT Office Visit Cardiology at [address] [phone] Milagros Hernandez MD [facility] [place] [address] Scheduled Procedures Name Priority Associated Diagnoses Date/Ti me EGD, UPPER GI ENDOSCOPY (WRV U 2.09) Peptic stricture of esophagus documented as of this encounter Visit Diagnoses Not on filedocumented in this encounter Care Teams Stain Dipper Relationship Specialty Start Date End Date Ana Gillespie APRN [address] [place] [address] PCP - General Family Medicine 02/03/19 documented as of this encounter
--- OUTSIDE RECORDS SUMMARY | 2024-02-29 21:30 | XMS_ITS | Encounter Summary ---
Author Organization [facility] [place] [address] Care Team Providers Care Scout Executive Name Role Phone Ana Gillespie VAUGHN Primary Care Provider [phone] Encounter Details Date Type Department Care Team (Late st Contact Info) Description 10/27/2021 Telephone [place] [address] Chiquita James, RN Social History [...] PM EDT Office Visit Cardiology at [address] [phone] Milagros Hernandez MD [facility] [place] [address] Scheduled Procedures Name Priority Associated Diagnoses Date/Ti me EGD, UPPER GI ENDOSCOPY (WRV U 2.09) Peptic stricture of esophagus documented as of this encounter Visit Diagnoses Not on filedocumented in this encounter Care Teams Scout Executive Relationship Specialty Start Date End Date Ana Gillespie APRN [address] [place] [address] PCP - General Family Medicine 02/03/19 documented as of this encounter
--- OUTSIDE RECORDS SUMMARY | 2024-02-29 21:30 | XMS_ITS | Encounter Summary ---
Author Organization [facility] [place] [address] Care Team Providers Care Geology Teacher Name Role Phone Ana Gillespie VAUGHN Primary Care Provider [phone] Encounter Details Date Type Department Care Team (Late Contact Info) Description 10/21/2021 Telephone [place] [address] Chiquita James, RN Social History [...] PM EDT Office Visit Cardiology at [address] [phone] Milagros Hernandez MD [facility] [place] [address] Scheduled Procedures Name Priority Associated Diagnoses Date/Ti me EGD, UPPER GI ENDOSCOPY (WRV U 2.09) Peptic stricture of esophagus documented as of this encounter Visit Diagnoses Not on filedocumented in this encounter Care Teams Geology Teacher Relationship Specialty Start Date End Date Ana Gillespie APRN [address] [place] [address] PCP - General Family Medicine 02/03/19 documented as of this encounter
--- OUTSIDE RECORDS SUMMARY | 2024-02-29 21:30 | XMS_ITS | Encounter Summary ---
[place] [address] Care Team Providers Care Thread Machine Operator Name Role Phone Ana Gillespie APRN Primary Care Provider [phone] Encounter Details Date Type Department Care Team (Late st Contact Info) Description 12/26/2021 Telephone [place] [address] Rober Tobin Social History Tobacco [...] Return calls can be handled by: Endoscopy Client Relations Representative [phone] documented in this encounter Plan of Treatment Upcoming Encounters Date Type Department Care Team (Late st Contact Info) Description 03/10/2024 4:00 PM EDT Office Visit Cardiology at [address] [phone] Milagros Hernandez MD [facility] [place] [address] Scheduled Procedures Name Priority Associated Diagnoses Date/Ti me EGD, UPPER GI ENDOSCOPY (WRV U 2.09) Peptic stricture of esophagus documented as of this encounter Visit Diagnoses Not on filedocumented in this encounter Care Teams Thread Machine Operator Relationship Specialty Start Date End Date Ana Gillespie APRN [address] [place] [address] PCP - General Family Medicine 02/03/19 documented as of this encounter
--- OUTSIDE RECORDS SUMMARY | 2024-02-29 21:30 | XMS_ITS | Encounter Summary ---
Author Organization [facility] Address [facility] [place] [address] Care Team Providers Care Wet Process Miller Name Role Phone Ana Gillespie VAUGHN Primary Care Provider [phone] Reason for Referral * Consultation (Routine) - Closed Specialty Diagnoses / Procedures Referred By Esperanza rodríguez Referred To Contact Neurology Diagnoses Primary parkinsonism David Dejesus MD [facility] [place] [address] [facility] [address] [place] [address] Referral ID Status Reason Start Date Expiration Date V isits Requested Visits Authorized [id number] Closed Consult, Test & Treat 09/23/2021 09/23/2022 1 1 Encounter Details Date Type Department Care Team (Late st Contact Info) Description 09/23/2021 Orders [place] [phone] David Dejesus MD [facility] [place] [address] Primary parkinsonism Social History Tobacco Use Types [...] PM EDT Office Visit Cardiology at [address] [phone] Milagros Hernandez MD [facility] [place] [address] Scheduled Procedures Name Priority Associated Diagnoses Date/Ti me EGD, UPPER GI ENDOSCOPY (WRV U 2.09) Peptic stricture of esophagus Scheduled Referrals Name Type Priority Associated Diagnoses Orde r Schedule Referral to Neurology Outpatient Referral Routine Primary Parkinsonism Ordered: 09/23/2021 documented as of this encounter Visit Diagnoses Diagnosis Primary parkinsonism Paralysis agitans documented in this encounter Care Teams Wet Process Miller Relationship Specialty Start Date End Date Ana Gillespie APRN [address] [place] [address] PCP - General Family Medicine 02/03/19 documented as of this encounter
--- OUTSIDE RECORDS SUMMARY | 2024-02-29 21:30 | XMS_ITS | Encounter Summary ---
Author Organization [facility]ly [facility] Address [facility] [place] [address] Care Team Providers Care Country Sales Manager Name Role Phone Ana Gillespie APRN Primary Care Provider [phone] Encounter Details Date Type Department Care Team (Late st Contact Info) Description 03/01/2020 8:32 AM EDT Anesthesia Event [place] [phone] Ute Novak MD [facility] [place] [address] Anesthesia Record Procedure Summary Procedure Name Responsible [...] 0723; metacarpal vein (top of hand), right; nyyo-rpg-nqttza catheter system; 20 gauge; gaurav rn; distraction, [...] Procedure Summary Date: 03/01/20 Room / Location: [facility] / [facility] Anesthesia Start: 831 Anesthesia Stop: 923 Procedures: EGD, UPPER GI ENDOSCOPY (N/A Trunk) COLONOSCOPY, DIAGNOSTIC (N/A Trunk) UPPER GASTROINTESTINAL ENDOSCOPY,WITH BIOPSY SINGLE OR MULTIPLE (WRVU 2.49) (N/A Esophagus) Diagnosis: (needs egd/colonoscopy for GERD and screening colo rojelio) Surgeon: David Dejesus MD Responsible Provider: Ute Novak MD Anesthesia Type: MAC ASA Status: 3 All Anesthesia Providers: Anesthesiologist: Ute Novak MD [facility]: Chiquita Felix CRNA Vitals Value Taken Time BP 170/68 03/01/20 1001 Temp Pulse Resp 16 03/01/20 1000 SpO2 99 % 03/01/20 1008 Pain Level 0 03/01/20 1000 Vitals shown include unvalidated device data. Patient Location: PACU/[facility] Level of Consciousness: Awake and Alert [...] Dejesus MD at [facility] ??? PRO UPPER GI ENDOSCOPY, BIOPSY N/A 04/03/2014 UPPER GASTROINTESTINAL ENDOSCOPY,WITH BIOPSY SINGLE OR MULTIPLE performed by David Dejesus MDat [facility] ??? PRO UPPER GI ENDOSCOPY, BIOPSY N/A 03/20/2016 EGD WITH BIOPSY performed by David Dejesus MD at [facility] ??? PRO UPPER GI ENDOSCOPY, BIOPSY N/A 11/22/2018 EGD WITH BIOPSY (WRVU 2.49) performed by David Dejesus MD at [facility] ??? PRO UPPER GI ENDOSCOPY, DIAGNOSTIC N/A 04/03/2014 EGD, UPPER GI ENDOSCOPY performed by David Dejesus MD at [facility] Social History Tobacco Use ??? [...] risks discussed with patient. Plan discussed with [facility] DIRECT[facility] and attending. PAT Clinic Note documented in this encounter Plan of Treatment Upcoming Encounters Date Type Department Care Team (Late st Contact Info) Description 03/10/2024 4:00 PM EDT Office Visit Cardiology at [address] [phone] Milagros Hernandez MD [facility] [place] [address] Scheduled Procedures Name Priority Associated Diagnoses Date/Ti [...] mL/hr documented in this encounter Care Teams Country Sales Manager Relationship Specialty Start Date End Date Ana Gillespie APRN [address] [place] [address] PCP - General Family Medicine 02/03/19 documented as of this encounter
--- OUTSIDE RECORDS SUMMARY | 2024-02-29 21:30 | XMS_ITS | Encounter Summary ---
Author Organization [facility] [place] [address] Care Team Providers Care Housekeeping/Laundry Name Role Phone Ana Gillespie VAUGHN Primary Care Provider [phone] Encounter Details Date Type Department Care Team (Late st Contact Info) Description 11/24/2021 Telephone [place] [address] Chiquita James, RN Social History [...] PM EDT Office Visit Cardiology at [address] [phone] Milagros Hernandez MD [facility] [place] [address] Scheduled Procedures Name Priority Associated Diagnoses Date/Ti me EGD, UPPER GI ENDOSCOPY (WRV U 2.09) Peptic stricture of esophagus documented as of this encounter Visit Diagnoses Not on filedocumented in this encounter Care Teams Housekeeping/Laundry Relationship Specialty Start Date End Date Ana Gillespie APRN [address] [place] [address] PCP - General Family Medicine 02/03/19 documented as of this encounter
--- OUTSIDE RECORDS SUMMARY | 2024-02-29 21:30 | XMS_ITS | Encounter Summary ---
Author Organization [facility] Address [facility] [place] [address] Care Team Providers Care Cleaning Specialist Name Role Phone Ana Gillespie APRN Primary Care Provider [phone] Encounter Details Date Type Department Care Team (Late st Contact Info) Description 11/25/2021 Telephone [place] [phone] Alla Mejia Social History Tobacco Use Types [...] PM EDT Office Visit Cardiology at [address] [phone] Milagros Hernandez MD [facility] [place] [address] Scheduled Procedures Name Priority Associated Diagnoses Date/Ti me EGD, UPPER GI ENDOSCOPY (WRV U 2.09) Peptic stricture of esophagus documented as of this encounter Visit Diagnoses Not on filedocumented in this encounter Care Teams Cleaning Specialist Relationship Specialty Start Date End Date Ana Gillespie APRN [address] [place] [address] PCP - General Family Medicine 02/03/19 documented as of this encounter
--- OUTSIDE RECORDS SUMMARY | 2024-02-29 21:30 | XMS_ITS | Encounter Summary ---
Author Organization [facility] Address [facility] [place] [address] Care Team Providers Care Roll Sheeting Cutter Name Role Phone Ana Gillespie VAUGHN Primary Care Provider [phone] Encounter Details Date Type Department Care Team (Late st Contact Info) Description 09/08/2021 [place] [address] Nicole Mariscal Social History Tobacco Use Types [...] PM EDT Office Visit Cardiology at [address] [address] Milagros Hernandez MD [facility] [place] [address] Scheduled Procedures Name Priority Associated Diagnoses Date/Ti me EGD, UPPER GI ENDOSCOPY (WRV U 2.09) Peptic stricture of esophagus documented as of this encounter Visit Diagnoses Not on filedocumented in this encounter Care Teams Roll Sheeting Cutter Relationship Specialty Start Date End Date Ana Gillespie APRN [address] [place] [address] PCP - General Family Medicine 02/03/19 documented as of this encounter
--- OUTSIDE RECORDS SUMMARY | 2024-02-29 21:30 | XMS_ITS | Encounter Summary ---
[place] [address] Care Team Providers Care Java Developer Name Role Phone Ana Gillespie VAUGHN Primary Care Provider [phone] Reason for Visit * Reason Onset Date Comments Prior Authorization 09/18/2020 Encounter Details Date Type Department Care Team (Late st Contact Info) Description 09/18/2020 Tele[place] [address] Francoise Vides CMA GASTROENTEROLOGY DEPT Prior Authorization [...] encounter Miscellaneous Notes * Telephone Encounter - Francoies Vides CMA - 09/18/2020 11:10 AM EDT Medication Prior Authorization 4L Gastroenterology / [place] [address] ?? Subscriber Insurance: [place] Medicaid ?? Phone: . Fax: ? Physician: David Dejesus ? Return ?? Pharmacy: [facility] ? Medication Requested: pantoprazole ?? Strength: 40 mg Frequency: BID ?? Disp.: 180 Refills: 3 ?? Currently taking: n Diagnosis for this medication: Farrell's w/ dysplasia, and GERD ?? ICD-10 code: ?? Prior medications trialed in this patient: Pantoprazole QD, esomperazole, and omeprazole,tums,zantac ? Medication: Outcome/Adverse Reactions: treatment failure ?? Decision: approved Start:09/18/20 End: 09/18/21 ?? Tracking number/Case number/Reference number: [id number] ? documented in this encounter Plan of Treatment Upcoming Encounters Date Type Department Care Team (Late st Contact Info) Description 03/10/2024 4:00 PM EDT Office Visit Cardiology at [address] [phone] Milagros Hernandez MD [facility] [place] [address] Scheduled Procedures Name Priority Associated Diagnoses Date/Ti me EGD, UPPER GI ENDOSCOPY (WRV U 2.09) Peptic stricture of esophagus documented as of this encounter Visit Diagnoses Not on filedocumented in this encounter Care Teams Java Developer Relationship Specialty Start Date End Date Ana Gillespie APRN [address] [place] [address] PCP - General Family Medicine 02/03/19 documented as of this encounter
--- OUTSIDE RECORDS SUMMARY | 2024-02-29 21:30 | XMS_ITS | Encounter Summary ---
Author Organization [facility] Address [facility] [place] [address] Care Team Providers Care Cnc Field Service Engineer Name Role Phone Ana Gillespie APRN Primary Care Provider [phone] Encounter Details Date Type Department Care Team (Late st Contact Info) Description 11/27/2021 Telephone [place] [phone] Alla Mejia Social History Tobacco Use Types [...] PM EDT Office Visit Cardiology at [address] [phone] Milagros Hernandez MD [facility] [place] [address] Scheduled Procedures Name Priority Associated Diagnoses Date/Ti me EGD, UPPER GI ENDOSCOPY (WRV U 2.09) Peptic stricture of esophagus documented as of this encounter Visit Diagnoses Not on filedocumented in this encounter Care Teams Cnc Field Service Engineer Relationship Specialty Start Date End Date Ana Gillespie APRN [address] [place] [address] PCP - General Family Medicine 02/03/19 documented as of this encounter
--- OUTSIDE RECORDS SUMMARY | 2024-02-29 21:30 | XMS_ITS | Encounter Summary ---
Author Organization Counts Include [facility] Address [facility] [place] [address] Care Team Providers Care Mastic Worker Name Role Phone Ana Gillespie VAUGHN Primary Care Provider [phone] Encounter Details Date Type Department Care Team (Late st Contact Info) Description 03/01/2020 8:30 AM EDT - 03/01/2020 9:30 AM EDT Surgery Gastroenterology at [facility] [address] David Dejesus MD [facility] [place] [address] EGD, UPPER GI ENDOSCOPY (WRVU 2.09) Social [...] the day after the procedure, use an lzto-lnu-drohhpe spray to numb your throat. Sucking on [...] occurs, please contact your Doctor. Please call [phone] before 8pm Mon-Fri with problems, questions or concerns. If you call after 8pm or on weekends, call the Hospital at [phone] and ask to speak to the Client Experience Manager energy professional and the plant operator helper will contact that person for you. When should you call for help? Call [phone] anytime you think you may need emergency [...] Where can you learn more? [facility] View your After Visit Summary and more online at [email or web address] If you would like to provide feedback about your hospital experience, please call the Office of Patient and Family Relations at . If you have received this After Visit Summary in error, please immediately return it in person to the department, or notify the [facility] Privacy Office by calling toll free at between the hours of 8AM and 5PM to arrange for our retrieval of the documents at no cost to you. Content Version: 12.2 ?? 4256-2136 SwiftStack. Care instructions adapted under license by [facility]. If you have questions about a medical condition or this instruction, always ask your healthcare professional. [employer] disclaims any warranty or liability for your [...] occurs, please contact your Doctor. Please call [phone] before 8pm Mon-Fri with problems, questions or concerns. If you call after 8pm or on weekends, call the Hospital at [phone] and ask to speak to the Client Experience Manager energy professional and the plant operator helper will contact that person for you. When should you call for help? Call 108 anytime you think you may need emergency [...] Where can you learn more? [facility] View your After Visit Summary and more online at [email or web address] If you would like to provide [...] cost to you. Content Version: 12.2 ?? 7972-3084 SwiftStack. Care instructions adapted under license by [facility]. If you have questions about a medical condition or this instruction, always ask your healthcare professional. [employer] disclaims any warranty or liability for your [...] meter kit. 1 each 0 12/14/2014 Insulin [place], Disposable, (BD INSULIN PEN NEEDLE UF [...] meter kit. 1 each 0 ??? Insulin [place], Disposable, (BD INSULIN PEN NEEDLE UF MINI) 31 x 3/16 Needle 1 Device by [facility].(Non-Drug; Combo Route) route 3 [...] PM EDT Office Visit Cardiology at [address] [address] Milagros Hernandez MD [facility] [place] [address] Scheduled Procedures Name Priority Associated Diagnoses Date/Ti [...] 8:42 AM EDT Upper Gi Endoscopy, Biopsy (71137) 03/01/2020 8:36 AM EDT needs egd/colonoscopy for GERD and screening colo rojelio Colonoscopy, Diagnostic (81106) 03/01/2020 8:36 AM EDT needs egd/colonoscopy for GERD and screening colo rojelio Upper GI Endoscopy, Diagnostic (74517) 03/01/2020 8:36 AM EDT needs egd/colonoscopy for GERD and screening colo rojelio UPPER GI ENDOSCOPY Routine 03/01/2020 7: 47 AM EDT COLONOSCOPY Routine 03/01/2020 7:22 AM EDT documented in this encounter Results * Surgical Pathology Report (03/01/2020 8:42 AM EDT) Final Diagnosis [id number] ? Location: 4T; EA06; A The signing [...] Hill MD Verified: ??03/10/2020 ?Pathologist Performed at: ??-[facility] [place], [place], [place] SPECIMEN(S) SUBMITTED A - 28 cm, [...] cassette labeled D1. ??sns 03/10/2020 12:01 PM [facility] GI Biopsy 03/01/2020 8:42 AM EDT 03/01/2020 8:42 AM EDT GI Biopsy 03/01/2020 8:42 AM EDT 03/01/2020 8:42 AM EDT GI Biopsy 03/01/2020 8:42 AM EDT 03/01/2020 8:42 AM EDT GI Biopsy 03/01/2020 8:42 AM EDT 03/01/2020 8:42 AM EDT David Dejesus MD PATHOLOGY/[place] [address] * Specimen to Pathology (03/01/2020 8:42 AM EDT) AP Specimen 03/01/2020 8:42 AM EDT 03/01/2020 8:42 AM EDT Narrative [facility] - 03/01/2020 8:42 AM EDT Specimen requisition ordered. ??Separate Pathology report to follow David Dejesus MD PATHOLOGY/CYTOLOGY ORDERABLES Performing Organization Address City/[facility]/[place] [address] * Specimen to Pathology (03/01/2020 8:42 AM EDT) AP Specimen 03/01/2020 8:42 AM EDT 03/01/2020 8:42 AM EDT Narrative [facility] - 03/01/2020 8:42 AM EDT Specimen requisition ordered. ??Separate Pathology report to follow David Dejesus MD PATHOLOGY/CYTOLOGY ORDERABLES Performing Organization Address City/[facility]/[place] [address] * Specimen to Pathology (03/01/2020 8:42 AM EDT) AP Specimen 03/01/2020 8:42 AM EDT 03/01/2020 8:42 AM EDT Narrative [facility] - 03/01/2020 8:42 AM EDT Specimen requisition ordered. ??Separate Pathology report to follow David Dejesus MD PATHOLOGY/CYTOLOGY ORDERABLES Performing Organization Address City/[facility]/[place] [address] * Specimen to Pathology (03/01/2020 8:42 AM EDT) AP Specimen 03/01/2020 8:42 AM EDT 03/01/2020 8:42 AM EDT Narrative [facility] - 03/01/2020 8:42 AM EDT Specimen requisition ordered. ??Separate Pathology report to follow David Dejesus MD PATHOLOGY/CYTOLOGY ORDERABLES Performing Organization Address [facility]/State/ZIP Co de Phone Number [facility] [place] [address] * UPPER GI ENDOSCOPY (03/01/2020 7:47 AM EDT) UPPER GI ENDOSCOPY [facility] Endoscopy Procedure Date: 03/01/2020 7:47 AM ? Patient Name: Jennifer Irving ? N: [id number] ? Date of : 1960 ? Age: 59 ? Order #: [id number] ? Instrument Name: [id number] ? Procedure: ? Upper GI endoscopy Indications: ? Follow-up of [place]'s esophagus Providers: ? Dvaid Dejesus MD, Elizabeth Celis, ? RN, Eligio [...] * COLONOSCOPY (03/01/2020 7:22 AM EDT) COLONOSCOPY [facility] Endoscopy Procedure Date: 03/01/2020 7:22 AM ? Patient Name: Jennifer Irving ? Date of : 1960 ? Age: 59 ? Order #: [id number] ? Instrument Name: [id number] ? Procedure: ? Colonoscopy Indications: ? Screening [...] CRNA) documented in this encounter Care Teams Mastic Worker Relationship Specialty Start Date End Date Ana Gillespie APRN [address] [place] [address] PCP - General Family Medicine 02/03/19 documented as of this encounter
--- OUTSIDE RECORDS SUMMARY | 2024-02-29 21:30 | XMS_ITS | Encounter Summary ---
Author Organization [facility]ly [facility] [place] [address] Care Team Providers Care Appraiser Name Role Phone Ana Gillespie VAUGHN Primary Care Provider [phone] Encounter Details Date Type Department Care Team (Late st Contact Info) Description 10/29/2021 Telephone [place] [phone] Juice Maxwell RN Social History Tobacco Use [...] PM EDT Office Visit Cardiology at [address] [phone] Milagros Hernandez MD [facility] [address] Scheduled Procedures Name Priority Associated Diagnoses Date/Ti me EGD, UPPER GI ENDOSCOPY (WRV U 2.09) Peptic stricture of esophagus documented as of this encounter Visit Diagnoses Not on filedocumented in this encounter Care Teams Appraiser Relationship Specialty Start Date End Date Ana Gillespie APRN [address] [place] [address] PCP - General Family Medicine 02/03/19 documented as of this encounter
--- OUTSIDE RECORDS SUMMARY | 2024-02-29 21:30 | XMS_ITS | Encounter Summary ---
Author Organization [facility] [place] [address] Care Team Providers Care Commercial Internship Name Role Phone Ana Gillespie VAUGHN Primary Care Provider [phone] Encounter Details Date Type Department Care Team (Late st Contact Info) Description 09/12/2021 Tele[place] [address] Chiquita James, RN Social History [...] PM EDT Office Visit Cardiology at [address] [address] Milagros Hernandez MD [facility] [place] [address] Scheduled Procedures Name Priority Associated Diagnoses Date/Ti me EGD, UPPER GI ENDOSCOPY (WRV U 2.09) Peptic stricture of esophagus documented as of this encounter Visit Diagnoses Not on filedocumented in this encounter Care Teams Commercial Internship Relationship Specialty Start Date End Date Ana Gillespie APRN [address] [place] [address] PCP - General Family Medicine 02/03/19 documented as of this encounter
--- OUTSIDE RECORDS SUMMARY | 2024-02-29 21:30 | XMS_ITS | Encounter Summary ---
Author Organization [facility] Address [facility] [place] [address] Care Team Providers Care Folder And Notcher Name Role Phone Ana Gillespie VAUGHN Primary Care Provider [phone] Encounter Details Date Type Department Care Team (Latest Contact Info) Description 03/31/2022 8:43 AM EST - 03/31/2022 11:10 AM EST Hospital Encounter Gastroenterology at [facility] [place] [address] David Dejesus MD [facility] [place] [address] Discharge Disposition: Home Social History Tobacco Use [...] the day after the procedure, use an nqbk-tpx-xqfenjx spray to numb your throat. Sucking on [...] occurs, please contact your Doctor. Please call [phone] before 8pm Mon-Fri with problems, questions or concerns. If you call after 8pm or on weekends, call the Hospital at [phone] and ask to speak to the Legal Support Analyst applications systems engineer and the boiler control room operator will contact that person for you. When should you call for help? Call [phone] anytime you think you may need emergency [...] Where can you learn more? [facility] View your After Visit Summary and more online at [email or web address] If you would like to provide feedback about your hospital experience, please call the Office of Patient and Family Relations at . If you have received this After Visit Summary in error, please immediately return it in person to the department, or notify the [facility] Privacy Office by calling toll free at between the hours of 8AM and 5PM to arrange for our retrieval of the documents at no cost to you. Content Version: 12.2 ?? [id number] [employer]. Care instructions adapted under license by [facility]. If you have questions about a medical condition or this instruction, always ask your healthcare professional. [employer] disclaims any warranty or liability for your [...] meter kit. 1 each 0 12/14/2014 Insulin [place], Disposable, (BD INSULIN PEN NEEDLE UF MINI) 31 x 3/16 NeedleIndications:Di abetes mellitus type 2, uncontrolled 1 Device by [facility] [...] PM EDT Office Visit Cardiology at [address] [address] Milagros Hernandez MD [facility] [place] [address] Scheduled Procedures Name Priority Associated Diagnoses Date/Ti [...] 10:21 AM EST Endoscopic Us Exam, Esoph ([id number]) 03/31/2022 9:59 AM EST Schedule EGD in two years Upper Gi Endoscopy, Biopsy (73181) 03/31/2022 9:59 AM EST Schedule EGD in [...] PATHOLOGY/CYTOLOGY ORDERABLES [facility] [place] [address] * Specimen to Pathology (03/31/2022 10:36 AM EST) AP Specimen 03/31/2022 10:3 6 AM EST 03/31/2022 10:36 AM EST Narrative [facility] - 03/31/2022 10:36 AM EST Specimen requisition ordered. ??Separate Pathology report to follow David Dejesus MD PATHOLOGY/CYTOLOGY ORDERABLES Performing Organization Address City/[facility]/[place] [address] * Specimen to Pathology (03/31/2022 10:36 AM EST) AP Specimen 03/31/2022 10:3 6 AM EST 03/31/2022 10:36 AM EST Narrative [facility] - 03/31/2022 10:36 AM EST Specimen requisition ordered. ??Separate Pathology report to follow David Dejesus MD PATHOLOGY/CYTOLOGY ORDERABLES Performing Organization Address [facility] [place] [address] * Specimen to Pathology (03/31/2022 10:36 AM EST) AP Specimen 03/31/2022 10:3 6 AM EST 03/31/2022 10:36 AM EST Narrative [facility] - 03/31/2022 10:36 AM EST Specimen requisition ordered. ??Separate Pathology report to follow David Dejesus MD PATHOLOGY/CYTOLOGY ORDERABLES Performing Organization Address [facility] [place] [address] * Specimen to Pathology (03/31/2022 10:36 AM EST) AP Specimen 03/31/2022 10:3 6 AM EST 03/31/2022 10:36 AM EST Narrative [facility] - 03/31/2022 10:36 AM EST Specimen requisition ordered. ??Separate Pathology report to follow David Dejesus MD PATHOLOGY/CYTOLOGY ORDERABLES Performing Organization Address [facility] Co de Phone Number [facility] [place] [address] * Specimen to Pathology (03/31/2022 10:36 AM EST) AP Specimen 03/31/2022 10:3 6 AM EST 03/31/2022 10:36 AM EST Narrative [facility] - 03/31/2022 10:36 AM EST Specimen requisition ordered. ??Separate Pathology report to follow David Dejesus MD PATHOLOGY/CYTOLOGY ORDERABLES Performing Organization Address [facility] [place] [address] * Specimen to Pathology (03/31/2022 10:36 AM EST) AP Specimen 03/31/2022 10:3 6 AM EST 03/31/2022 10:36 AM EST Narrative [facility] - 03/31/2022 10:36 AM EST Specimen requisition ordered. ??Separate Pathology report to follow David Dejesus MD PATHOLOGY/CYTOLOGY ORDERABLES Performing Organization Address [facility] [place] [address] * Surgical Pathology Report (03/31/2022 10:21 AM EST) Pathologist [facility] Final Diagnosis [id number] ? Location: 4; 08; A The signing [...] ??-[facility] Dept. of [place]ology, [place] [address] Finishing Supervisor Plastic Sheets: Vishal Gilliam MD, FCAP, ??CLIA Certificate: [id number] SPECIMEN(S) SUBMITTED A - Esophagus at 30 [...] PATHOLOGY/CYTOLOGY ORDERABLES [facility] [place] [address] * UPPER GI ENDOSCOPY (03/31/2022 9:56 AM EST) UPPER GI ENDOSCOPY [facility] Endoscopy Procedure Date: 03/31/2022 9:56 AM ? Patient Name: Jennifer Irving ? Date of : 1960 ? Age: 61 ? Order #: [id number] ? Instrument Name: [id number] ? Procedure: ? Upper GI endoscopy Indications: [...] Dejesus MD POINT [place] [address] documented in this encounter Visit Diagnoses Not [...] CRNA) documented in this encounter Care Teams Folder And Notcher Relationship Specialty Start Date End Date Ana Gillespie APRN [address] [place] [address] PCP - General Family Medicine 02/03/19 documented as of this encounter
--- OUTSIDE RECORDS SUMMARY | 2024-02-29 21:31 | XMS_ITS | Encounter Summary ---
Author Organization [facility] [place] [address] Care Team Providers Care Manager Of Purchasing Name Role Phone David Blue MD Primary Care Provider [phone] Reason for Visit * Reason Onset Date Comments Prior Authorization 03/12/2016 Encounter Details Date Type Department Care Team (Late st Contact Info) Description 03/12/2016 Telephone Gastroenterology at [facility] [place] [address] Francoise Vides CMA GASTROENTEROLOGY DEPT Prior Authorization [...] PM EDT Office Visit Cardiology at [address] [address] Milagros Hernandez MD [facility] [place] [address] Scheduled Procedures Name Priority Associated Diagnoses Date/Ti me EGD, UPPER GI ENDOSCOPY (WRV U 2.09) Peptic stricture of esophagus documented as of this encounter Visit Diagnoses Not on filedocumented in this encounter Care Teams Manager Of Purchasing Relationship Specialty Start Date End Date David Blue MD [address] [place] [address] PCP - General 04/01/10 02/02/19 documented as of this encounter
--- OUTSIDE RECORDS SUMMARY | 2024-02-29 21:31 | XMS_ITS | Encounter Summary ---
Author Organization [facility] [place] [address] Care Team Providers Care Test Desk Supervisor Name Role Phone Ana Gillespie APRN Primary Care Provider [phone] Reason for Visit * Reason Onset Date Comments Medication Refill 11/13/2019 Encounter Details Date Type Department Care Team (Late st Contact Info) Description 11/13/2019 Refill [place] [phone] David Dejesus MD [facility] [place] [address] Social History Tobacco Use Types Packs/Day Years [...] PM EDT Office Visit Cardiology at [address] [phone] Milagros Hernandez MD [facility] [place] [address] Scheduled Procedures Name Priority Associated Diagnoses Date/Ti me EGD, UPPER GI ENDOSCOPY (WRV U 2.09) Peptic stricture of esophagus documented as of this encounter Visit Diagnoses Not on filedocumented in this encounter Care Teams Test Desk Supervisor Relationship Specialty Start Date End Date Ana Gillespie APRN [address] [place] [address] PCP - General Family Medicine 02/03/19 documented as of this encounter
--- OUTSIDE RECORDS SUMMARY | 2024-02-29 21:31 | XMS_ITS | Encounter Summary ---
Author Organization [facility] Address [facility] [place] [address] Care Team Providers Care Equity Research Analyst Name Role Phone David Blue MD Primary Care Provider [phone] Encounter Details Date Type Department Care Team (Late st Contact Info) Description 11/22/2018 11:15 AM EDT - 11/22/2018 11:45 AM EDT [place] [address] David Dejesus MD [facility] [place] [address] EGD WITH BIOPSY (WRVU 2.39) Social History [...] better as expected. Wednesday-Wednesday Same Day Endo [phone]-8p Otherwise contact [phone] and ask to speak to the health safety coordinator community relations representative Follow-up care is a fam part of [...] meter kit. 1 each 0 12/14/2014 Insulin [place], Disposable, (BD INSULIN PEN NEEDLE UF MINI) [...] PM EDT Office Visit Cardiology at [address] [address] Milagros Hernandez MD [facility] [place] [address] Scheduled Procedures Name Priority Associated Diagnoses Date/Ti [...] PM EDT 11/22/2018 12:43 PM EDT Narrative [facility] - 11/22/2018 12:43 PM EDT Specimen requisition ordered. ??Separate Pathology report to follow David Dejesus MD PATHOLOGY/CYTOLOGY ORDERABLES [facility] [place] [address] * Surgical Pathology Report (11/22/2018 12:34 PM EDT) Final Diagnosis [id number] ? Location: 4T; EA06; A The signing [...] Nguyen MD Verified: ??11/23/2018 ?Pathologist Performed at: ??-[facility] Dept. of Pathology, [place], [place] CLINICAL INFORMATION Specimen Submitted: A - [...] labeled E1. ??shb 11/23/2018 2:35 PM EDT [facility] GI Biopsy 11/22/2018 12:3 4 PM EDT 11/22/2018 12:34 PM EDT GI Biopsy 11/22/2018 12:3 4 PM EDT 11/22/2018 12:34 PM EDT GI Biopsy 11/22/2018 12:3 4 PM EDT 11/22/2018 12:34 PM EDT GI Biopsy 11/22/2018 12:3 4 PM EDT 11/22/2018 12:34 PM EDT GI Biopsy 11/22/2018 12:3 4 PM EDT 11/22/2018 12:34 PM EDT David Dejesus MD PATHOLOGY/CYTOLOGY ORDERABLES [facility] [place] [address] * Specimen to Pathology (11/22/2018 12:34 PM EDT) AP Specimen 11/22/2018 12:3 4 PM EDT 11/22/2018 12:34 PM EDT Narrative [facility] - 11/22/2018 12:34 PM EDT Specimen requisition ordered. ??Separate Pathology report to follow David Dejesus MD PATHOLOGY/CYTOLOGY ORDERABLES [facility] [place] [address] * Specimen to Pathology (11/22/2018 12:34 PM EDT) AP Specimen 11/22/2018 12:3 4 PM EDT 11/22/2018 12:34 PM EDT Narrative [facility] - 11/22/2018 12:34 PM EDT Specimen requisition ordered. ??Separate Pathology report to follow David Dejesus MD PATHOLOGY/CYTOLOGY ORDERABLES Performing Organization Address [facility] [place] [address] * Specimen to Pathology (11/22/2018 12:34 PM EDT) AP Specimen 11/22/2018 12:3 4 PM EDT 11/22/2018 12:34 PM EDT Narrative [facility] - 11/22/2018 12:34 PM EDT Specimen requisition ordered. ??Separate Pathology report to follow David Dejesus MD PATHOLOGY/CYTOLOGY ORDERABLES Performing Organization Address [facility] [place] [address] * Specimen to Pathology (11/22/2018 12:34 PM EDT) AP Specimen 11/22/2018 12:3 4 PM EDT 11/22/2018 12:34 PM EDT Narrative [facility] - 11/22/2018 12:34 PM EDT Specimen requisition ordered. ??Separate Pathology report to follow David Dejesus MD PATHOLOGY/CYTOLOGY ORDERABLES Performing Organization Address [facility] [place] [address] * UPPER GI ENDOSCOPY (11/22/2018 12:12 PM EDT) UPPER GI ENDOSCOPY [facility] Endoscopy Procedure Date: 11/22/2018 12:12 PM ? Patient Name: Jennifer Irving ? Date of : 1960 ? Age: 58 ? Order #: [id number] ? Instrument Name: [id number] LOANER ? Procedure: ? Upper GI endoscopy [...] GENERAL SURGICAL ORD ERABLES Performing Organization Address City/[facility] Co de Phone Number [facility] * (ABNORMAL) POCT Glucose (11/22/2018 10:58 AM EDT) Glucose, POC 277(H) 65 - 199 mg/dL [facility] Comment: Supplemental ranges: <140 mg/dL before meals <180 mg/dL all other times of the day Blood specimen (specimen) 11/22/2018 10:58 AM EDT 11/22/2018 10:58 AM EDT David Dejesus MD POINT OF CARE TEST ORDERABLES Performing Organization Address [facility] Co de Phone Number [facility] [place] [address] documented in this encounter Visit Diagnoses Not [...] CRNA) documented in this encounter Care Teams Equity Research Analyst Relationship Specialty Start Date End Date David Blue MD [address] [place] [address] PCP - General 04/01/10 02/02/19 documented as of this encounter
--- OUTSIDE RECORDS SUMMARY | 2024-02-29 21:31 | XMS_ITS | Encounter Summary ---
[place] [address] Care Team Providers Care Bike Technician Name Role Phone David Blue MD Primary Care Provider [phone] Reason for Visit * Reason Onset Date Comments Prior Authorization 05/20/2018 Encounter Details Date Type Department Care Team (Late st Contact Info) Description 05/20/2018 Telephone [place] [address] Yoko Marroquin CCMA Prior Authorization Social History [...] Prior Authorization 4L Gastroenterology / [place] [address] Subscriber Insurance: [place] Medicaid Phone: Fax: Physician: David Dejesus Return Pharmacy: [facility] Fax: Medication Requested: Pantoprazole Strength: 40mg Frequency: Twice Daily Disp.: 180 Refills: 3 Currently taking: Diagnosis for this medication: GERD ICD-10 code: K21.9 Prior medications trialed in this patient: Esomeprazole Medication: Outcome/Adverse Reactions: Treatment Failure Decision: PA not required Tracking number/Case number/Reference number: [id number] Effective date: Start: End: documented in this encounter Plan of Treatment Upcoming Encounters Date Type Department Care Team (Late st Contact Info) Description 03/10/2024 4:00 PM EDT Office Visit Cardiology at [address] [address] Milagros Hernandez MD [facility] [place] [address] Scheduled Procedures Name Priority Associated Diagnoses Date/Ti me EGD, UPPER GI ENDOSCOPY (WRV U 2.09) Peptic stricture of esophagus documented as of this encounter Visit Diagnoses Not on filedocumented in this encounter Care Teams Bike Technician Relationship Specialty Start Date End Date David Blue MD [address] [place] [address] PCP - General 04/01/10 02/02/19 documented as of this encounter
--- OUTSIDE RECORDS SUMMARY | 2024-02-29 21:31 | XMS_ITS | Encounter Summary ---
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 last 04/03/14 Procedures PRO UPPER GI ENDOSCOPY, DIAGNOSTIC PRO COLONOSCOPY, DIAGNOSTIC EGD, UPPER GI ENDOSCOPY Referral ID Status Reason Start Date Expiration Date Visits Re quested Visits Authorized [id number] 1 1 Encounter Details Date Type Department Care Team (Late st Contact Info) Description 03/20/2016 11:24 AM EST Anesthesia [place] [address] Calli Jean MD [facility] [place] [address] Geronimo Del Toro, [address] [place] [address] Anesthesia Record Procedure Summary Procedure Name Responsible [...] Calli Jean - 03/21/2016 9:50 AM EST [facility] Department of Anesthesiology Post-procedure Note Patient: Jennifer Irving Procedure Summary Date Anesthesia Start Anesthesia Stop Room / Location 03/20/16 1124 1240 [facility] ENDO 3 / [facility] ENDOSCOPY Procedure Diagnosis Surgeon Responsible Provider EGD WITH BIOPSY (N/A Trunk); COLONOSCOPY FLEXIBLE, WITH BX (N/A Trunk) (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 Pro upper gi endoscopy, biopsy N/A 04/03/2014 UPPER GASTROINTESTINAL ENDOSCOPY,WITH BIOPSY SINGLE OR MULTIPLE performed by David Dejesus MDat [facility] ENDOSCOPY Social History Substance Use Topics ??? [...] risks discussed with patient. Plan discussed with LOADING MACHINE TOOL SETTER. PAT Staff Note documented in this encounter Plan of Treatment Upcoming Encounters Date Type Department Care Team (Late st Contact Info) Description 03/10/2024 4:00 PM EDT Office Visit Cardiology at [address] [address] Milagros Hernandez MD [facility] [place] [address] Scheduled Procedures Name Priority Associated Diagnoses Date/Ti [...] r documented in this encounter Care Teams Coordinator Integrated Marketing Relationship Specialty Start Date End Date David Blue MD [address] [place] [address] PCP - General 04/01/10 02/02/19 documented as of this encounter
--- OUTSIDE RECORDS SUMMARY | 2024-02-29 21:31 | XMS_ITS | Encounter Summary ---
Author Organization [facility] [place] [address] Care Team Providers Care Charge Accounts Audit Clerk Name Role Phone David Blue MD Primary Care Provider + [phone] Encounter Details Date Type Department Care Team (Late st Contact Info) Description 06/28/2018 Telephone [place] [address] Erin Lynn Social History Tobacco [...] - 06/28/2018 11:52 AM EST Jennifer Irving [id number] Diagnosis: EGD 1. Have you ever had [...] [] YES [x] NO If Yes send inPenguin Computing message to [facility] ENDO DEVICE CHECK 4. Are you a [...] NO 11. You must have a responsible constitution party stay at the facility during your [...] Office Visit Cardiology at [address] [address] Milagros Hernandez MD [facility] [place] [address] Scheduled Procedures Name Priority Associated Diagnoses Date/Ti me EGD, UPPER GI ENDOSCOPY (WRV U 2.09) Peptic stricture of esophagus documented as of this encounter Visit Diagnoses Not on filedocumented in this encounter Care Teams Charge Accounts Audit Clerk Relationship Specialty Start Date End Date David Blue MD [address] [place] [address] PCP - General 04/01/10 02/02/19 documented as of this encounter
--- OUTSIDE RECORDS SUMMARY | 2024-02-29 21:31 | XMS_ITS | Encounter Summary ---
Author Organization [facility] Address [facility] [place] [address] Care Team Providers Care Briquetter Operator Name Role Phone David Blue MD Primary Care Provider [phone] Encounter Details Date Type Department Care Team (Late st Contact Info) Description 04/30/2016 Orders [place] [phone] David Dejesus MD [facility] [place] [address] Visit for screening mammogram Social History Tobacco [...] PM EDT Office Visit Cardiology at [address] [phone] Milagros Hernandez MD [facility] [address] Scheduled Procedures Name Priority Associated Diagnoses Date/Ti me EGD, UPPER GI ENDOSCOPY (WRV U 2.09) Peptic stricture of esophagus documented as of this encounter Visit Diagnoses Diagnosis Visit for screening mammogram Other screening mammogram documented in this encounter Care Teams Briquetter Operator Relationship Specialty Start Date End Date David Blue MD [address] [place] [address] PCP - General 04/01/10 02/02/19 documented as of this encounter
--- OUTSIDE RECORDS SUMMARY | 2024-02-29 21:31 | XMS_ITS | Encounter Summary ---
Author Organization [facility] Address [facility] [place] [address] Care Team Providers Care Tenon Machine Operator Name Role Phone David Blue MD Primary Care Provider + [phone] Encounter Details Date Type Department Care Team (Late st Contact Info) Description 11/22/2018 12:20 PM EDT Anesthesia Event [place] [address] Keyana Short MD [facility] [place] [address] Alexandrea Wang CRNA [facility] [place] [address] Anesthesia Record Procedure Summary Procedure Name Responsible Anesthesiologist Anesthesia Start Time Anesthesia Stop Time EGD WITH BIOPSY (WRVU 2.39) (Trunk) Keyana Short MD 11/22/18 1220 11/22/18 1253 Events Date Time Event Comment 11/22/2018 1218 1220 AN Verify 1220 Start 1220 An Start Data 1223 Break/Relief In MARIA DE JESUS A ST C YR, MORTAR MIXER 1225 An Induction 1227 Anesthesia Ready 1228 [...] basilic vein (medial side of arm), right; xrcl-hyc-wcfmyn catheter system; 20 gauge; Gertrudis Cintron RN; [...] Procedure Summary Date: 11/22/18 Room / Location: [facility] ENDO 2 / [facility] ENDOSCOPY Anesthesia Start: 1220 Anesthesia Stop: 1253 Procedure: EGD WITH BIOPSY (WRVU 2.49) (N/A Trunk) Diagnosis: (Farrell's esophagus) (proclear) Surgeon: David Dejesus MD Responsible Provider: Keyana Short MD Anesthesia Type: MAC ASA Status: 2 All Anesthesia Providers: Anesthesiologist: Keyana Short MD MORTAR MIXER: Alexandrea Wang CRNA Vitals Value Taken Time BP 135/62 11/22/2018 1:20 PM Temp Pulse Resp SpO2 95 % 11/22/2018 1:30 PM Pain Level 0 11/22/2018 1:30 PM Patient Location: PACU/[facility] Level of Consciousness: Awake and Alert [...] PM EDT Office Visit Cardiology at [address] [address] Milagros Hernandez MD [facility] [place] [address] Scheduled Procedures Name Priority Associated Diagnoses Date/Ti [...] hr documented in this encounter Care Teams Tenon Machine Operator Relationship Specialty Start Date End Date David Blue MD [address] [place] [address] PCP - General 04/01/10 02/02/19 documented as of this encounter
--- OUTSIDE RECORDS SUMMARY | 2024-02-29 21:31 | XMS_ITS | Encounter Summary ---
Author Organization [facility] Address [facility] [place] [address] Care Team Providers Care Triage Registered Nurse Name Role Phone Ana Gillespie VAUGHN Primary Care Provider Reason for Referral * Consultation (PJ) - Closed Specialty Diagnoses / Procedures Referred By Contjovani t Referred To Contact Gastroenterology Diagnoses Iron deficiency anemia due to chronic blood loss Procedures needs egd/colonoscopy for GERD and screening colo pj David Dejesus MD [facility] [place] [address] [facility] Endoscopy [address] [place] [address] Referral ID Status Reason Start Date Expiration Date V isits Requested Visits Authorized [id number] Closed Consult, Test & Treat 12/25/2019 12/24/2020 1 1 Encounter Details Date Type Department Care Team (Late st Contact Info) Description 12/25/2019 Orders [place] [address] David Dejesus MD [facility] [place] [address] Iron deficiency anemia due to chronic blood [...] PM EDT Office Visit Cardiology at [address] [address] Milagros Hernandez MD [facility] [place] [address] Scheduled Procedures Name Priority Associated Diagnoses Date/Ti [...] (chronic) documented in this encounter Care Teams Triage Registered Nurse Relationship Specialty Start Date End Date Ana Gillespie APRN [address] [place] [address] PCP - General Family Medicine 02/03/19 documented as of this encounter
--- OUTSIDE RECORDS SUMMARY | 2024-02-29 21:31 | XMS_ITS | Encounter Summary ---
Author Organization [facility] Address [facility] [place] [address] Care Team Providers Care Wind Farm Engineer Name Role Phone David Blue MD Primary Care Provider [phone] Reason for Visit * Reason Onset Date Comments Medication Refill 09/26/2018 Encounter Details Date Type Department Care Team (Late st Contact Info) Description 09/26/2018 Ref[place] [phone] Francoise Vides CMA GASTROENTEROLOGY DEPT Social History [...] PM EDT Office Visit Cardiology at [address] [phone] Milagros Hernandez MD [facility] [place] [address] Scheduled Procedures Name Priority Associated Diagnoses Date/Ti me EGD, UPPER GI ENDOSCOPY (WRV U 2.09) Peptic stricture of esophagus documented as of this encounter Visit Diagnoses Not on filedocumented in this encounter Care Teams Wind Farm Engineer Relationship Specialty Start Date End Date David Blue MD [address] [place] [address] PCP - General 04/01/10 02/02/19 documented as of this encounter
--- OUTSIDE RECORDS SUMMARY | 2024-02-29 21:31 | XMS_ITS | Encounter Summary ---
Author Organization [facility] Address [facility] [place] [address] Care Team Providers Care Radiator Tester Name Role Phone David Blue MD Primary Care Provider [phone] Encounter Details Date Type Department Care Team (Late Contact Info) Description 08/05/2017 Orders [place] [phone] David Dejesus MD [facility] [place] [address] Social History Tobacco Use Types Packs/Day Years [...] PM EDT Office Visit Cardiology at [address] [phone] Milagros Hernandez MD [facility] [place] [address] Scheduled Procedures Name Priority Associated Diagnoses Date/Ti me EGD, UPPER GI ENDOSCOPY (WRV U 2.09) Peptic stricture of esophagus documented as of this encounter Visit Diagnoses Not on filedocumented in this encounter Care Teams Radiator Tester Relationship Specialty Start Date End Date David Blue MD [address] [place] [address] PCP - General 04/01/10 02/02/19 documented as of this encounter
--- OUTSIDE RECORDS SUMMARY | 2024-02-29 21:31 | XMS_ITS | Encounter Summary ---
Author Organization [facility] Address [facility] [place] [address] Care Team Providers Care Metallurgical Engineer Name Role Phone David Blue MD Primary Care Provider [phone] Encounter Details Date Type Department Care Team (Latest Contact Info) Description 07/02/2014 12:45 PM EST - 07/02/2014 11:59 PM EST Hospital Encounter [place] [address] CLINIC, David Lees MD [address] [place], [place] [address] Discharge Disposition: Home Social History Tobacco Use [...] PM EDT Office Visit Cardiology at [address] [phone] Milagros Hernandez MD [facility] [place] [address] Scheduled Procedures Name Priority Associated Diagnoses Date/Ti [...] to this patient by the breast imaging provo. Symone Alen Jose [employer] CONSULTANT IMG MAMMO ORDERAB LES documented in this encounter Visit Diagnoses Not on filedocumented in this encounter Care Teams Metallurgical Engineer Relationship Specialty Start Date End Date David Blue MD [address] [place] [address] PCP - General 04/01/10 02/02/19 documented as of this encounter
--- OUTSIDE RECORDS SUMMARY | 2024-02-29 21:31 | XMS_ITS | Encounter Summary ---
Author Organization [facility] Address [facility] [place] [address] Care Team Providers Care Fiber Glass Worker Name Role Phone David Blue MD Primary Care Provider + [phone] Encounter Details Date Type Department Care Team (Late st Contact Info) Description 03/31/2016 Telephone [place] [phone] Francoise Vides CMA GASTROENTEROLOGY DEPT Social History [...] PM EDT Office Visit Cardiology at [address] [phone] Milagros Hernandez MD [facility] [place] [address] Scheduled Procedures Name Priority Associated Diagnoses Date/Ti me EGD, UPPER GI ENDOSCOPY (WRV U 2.09) Peptic stricture of esophagus documented as of this encounter Visit Diagnoses Not on filedocumented in this encounter Care Teams Fiber Glass Worker Relationship Specialty Start Date End Date David Blue MD [address] [place] [address] PCP - General 04/01/10 02/02/19 documented as of this encounter
--- OUTSIDE RECORDS SUMMARY | 2024-02-29 21:31 | XMS_ITS | Encounter Summary ---
Author Organization [facility] [place] [address] Care Team Providers Care Senior Statistical Programmer Name Role Phone David Blue MD Primary Care Provider [phone] Encounter Details Date Type Department Care Team (Late st Contact Info) Description 04/03/2014 11:30 AM EST - 04/03/2014 12:00 PM EST Surgery Gastroenterology at [facility] [place] [address] David Dejesus MD [facility] [place] [address] EGD, UPPER GI ENDOSCOPY (WRVU 2.09) Social [...] - 04/03/2014 12:48 PM EST Please call [phone], before 5pm with problems, questions or concerns, after 5pm call the Hospital at [phone] and ask to speak to the Agency Legal Counsel assistant front office manager and the ring cutter lathe operator will contactthat person for you. Discharge [...] Everywhere. * EGD (UPPER ENDOSCOPY) : POST-OP (GHANAIAN) documented in this encounter Medications at Time [...] PM EDT Office Visit Cardiology at [address] [address] Milagros Hernandez MD [facility] [place] [address] Scheduled Procedures Name Priority Associated Diagnoses Date/Ti [...] (04/03/2014 12:37 PM EST) Final Diagnosis ? [facility] ? Provider: ?? DAVID DEJESUS ??Pt. Name: ?? JENNIFER IRVING ? Acc #: ?[id number] ?Pt. ? Col Date: ?? 04/03/2014 ?/Sex: [...] - Labeled/Fixativ e: Duodenal bulb, formalin. ? [facility] ? Provider: ?? DAVID DEJESUS ??Pt. Name: ?? JENNIFER IRVING ? Acc #: ?[id number] ?Pt. ? Col Date: ?? 04/03/2014 ?/Sex: [...] Diagnosis: ? Same 04/04/2014 9:11 PM EST [facility] GI Biopsy 04/03/2014 12:3 7 PM EST 04/03/2014 12:37 PM EST GI Biopsy 04/03/2014 12:3 7 PM EST 04/03/2014 12:37 PM EST GI Biopsy 04/03/2014 12:3 7 PM EST 04/03/2014 12:37 PM EST GI Biopsy 04/03/2014 12:3 7 PM EST 04/03/2014 12:37 PM EST David Dejesus MD PATHOLOGY/CYTOLOGY ORDERABLES Performing Organization Address City/[facility] Co de Phone Number [facility] [address] * Specimen to Pathology (surgical or derm) (04/03/2014 12:37 PM EST) AP Specimen 04/03/2014 12:3 7 PM EST 04/03/2014 12:37 PM EST Narrative CERNER GALINDOENNIUM - 04/03/2014 12:37 PM EST Specimen requisition ordered. ??Separate Pathology report to follow David Dejesus MD PATHOLOGY/CYTOLOGY ORDERABLES Performing Organization Address [facility] Co de Phone Number DARCY BARNETT * Specimen to Pathology (surgical or derm) (04/03/2014 12:37 PM EST) AP Specimen 04/03/2014 12:3 7 PM EST 04/03/2014 12:37 PM EST Narrative CERNER MILLENNIUM - 04/03/2014 12:37 PM EST Specimen requisition ordered. ??Separate Pathology report to follow David Dejesus MD PATHOLOGY/CYTOLOGY ORDERABLES Performing Organization Address City/[facility]/ZIP Co de Phone Number [facility] * Specimen to Pathology (surgical or derm) (04/03/2014 12:37 PM EST) AP Specimen 04/03/2014 12:3 7 PM EST 04/03/2014 12:37 PM EST Narrative CERNER MILLENNIUM - 04/03/2014 12:37 PM EST Specimen requisition ordered. ??Separate Pathology report to follow David Dejesus MD PATHOLOGY/CYTOLOGY ORDERABLES Performing Organization Address [facility] Co de Phone Number DARCY BARNETT * Specimen to Pathology (surgical or derm) (04/03/2014 12:37 PM EST) AP Specimen 04/03/2014 12:3 7 PM EST 04/03/2014 12:37 PM EST Narrative DARCY BARNETT - 04/03/2014 12:37 PM EST Specimen requisition ordered. ??Separate Pathology report to follow David Dejesus MD PATHOLOGY/CYTOLOGY ORDERABLES Performing Organization Address [facility] Co de Phone Number DARCY BARNETT * UPPER GI ENDOSCOPY (04/03/2014 12:06 PM EST) UPPER GI ENDOSCOPY [facility] Endoscopy Patient Name: Jennifer Irving ? Procedure Date: 04/03/2014 12:06 PM ? [facility]: [id number] ? Date of : 1960 ? Age: 53 ? Order #: [id number] ? Procedure: ? Upper GI endoscopy Indications: [...] RN) documented in this encounter Care Teams Senior Statistical Programmer Relationship Specialty Start Date End Date David Blue MD [address] [place] [address] PCP - General 04/01/10 02/02/19 documented as of this encounter
--- OUTSIDE RECORDS SUMMARY | 2024-02-29 21:31 | XMS_ITS | Encounter Summary ---
Author Organization [facility] Address [facility] [place] [address] Care Team Providers Care Hospital Internship Name Role Phone David Blue MD Primary Care Provider [phone] Encounter Details Date Type Department Care Team (Latest Contact Info) Description 11/22/2018 10:02 AM EDT - 11/22/2018 1:36 PM EDT Hospital Encounter [place] [address] David Dejesus MD [facility] [place] [address] Discharge Disposition: Home Social History Tobacco Use [...] better as expected. Wednesday-Wednesday Same Day Endo [phone] 7a-8p Otherwise contact [phone] and ask to speak to the social insurance administrator construction operations manager Follow-up care is a fam part [...] meter kit. 1 each 0 12/14/2014 Insulin [place], Disposable, (BD INSULIN PEN NEEDLE UF MINI) [...] PM EDT Office Visit Cardiology at [address] [address] Milagros Hernandez MD [facility] [place] [address] Scheduled Procedures Name Priority Associated [...] PM EDT 11/22/2018 12:43 PM EDT Narrative [facility] - 11/22/2018 12:43 PM EDT Specimen requisition ordered. ??Separate Pathology report to follow David Dejesus MD PATHOLOGY/CYTOLOGY ORDERABLES [facility] [place] [address] * Surgical Pathology Report (11/22/2018 12:34 PM EDT) Final Diagnosis [id number] ? Location: 4T; EA06; A The signing [...] Nguyen MD Verified: ??11/23/2018 ?Pathologist Performed at: ??[facility], [place], [place] CLINICAL INFORMATION Specimen Submitted: A - [...] labeled E1. ??shb 11/23/2018 2:35 PM EDT [facility] GI Biopsy 11/22/2018 12:3 4 PM EDT 11/22/2018 12:34 PM EDT GI Biopsy 11/22/2018 12:3 4 PM EDT 11/22/2018 12:34 PM EDT GI Biopsy 11/22/2018 12:3 4 PM EDT 11/22/2018 12:34 PM EDT GI Biopsy 11/22/2018 12:3 4 PM EDT 11/22/2018 12:34 PM EDT GI Biopsy 11/22/2018 12:3 4 PM EDT 11/22/2018 12:34 PM EDT David Dejesus MD PATHOLOGY/CYTOLOGY ORDERABLES [facility] [place] [address] * Specimen to Pathology (11/22/2018 12:34 PM EDT) AP Specimen 11/22/2018 12:3 4 PM EDT 11/22/2018 12:34 PM EDT Narrative [facility] - 11/22/2018 12:34 PM EDT Specimen requisition ordered. ??Separate Pathology report to follow David Dejesus MD PATHOLOGY/CYTOLOGY ORDERABLES Performing Organization Address City/[facility]/ZIP Co de Phone Number [facility] [place] [address] * Specimen to Pathology (11/22/2018 12:34 PM EDT) AP Specimen 11/22/2018 12:3 4 PM EDT 11/22/2018 12:34 PM EDT Narrative [facility] - 11/22/2018 12:34 PM EDT Specimen requisition ordered. ??Separate Pathology report to follow David Dejesus MD PATHOLOGY/CYTOLOGY ORDERABLES Performing Organization Address [facility] [place] [address] * Specimen to Pathology (11/22/2018 12:34 PM EDT) AP Specimen 11/22/2018 12:3 4 PM EDT 11/22/2018 12:34 PM EDT Narrative [facility] - 11/22/2018 12:34 PM EDT Specimen requisition ordered. ??Separate Pathology report to follow David Dejesus MD PATHOLOGY/CYTOLOGY ORDERABLES Performing Organization Address [facility] [place] [address] * Specimen to Pathology (11/22/2018 12:34 PM EDT) AP Specimen 11/22/2018 12:3 4 PM EDT 11/22/2018 12:34 PM EDT Narrative [facility] - 11/22/2018 12:34 PM EDT Specimen requisition ordered. ??Separate Pathology report to follow David Dejesus MD PATHOLOGY/CYTOLOGY ORDERABLES Performing Organization Address [facility] [place] [address] * UPPER GI ENDOSCOPY (11/22/2018 12:12 PM EDT) UPPER GI ENDOSCOPY [facility] Endoscopy Procedure Date: 11/22/2018 12:12 PM ? Patient Name: Jennifer Irving ? Date of : 1960 ? Age: 58 ? Order #: [id number] ? Instrument Name: [id number] ? Procedure: ? Upper GI endoscopy [...] GENERAL SURGICAL ORD ERABLES Performing Organization Address [facility] Co de Phone Number [place]OV[place] * (ABNORMAL) POCT Glucose (11/22/2018 10:58 AM EDT) Glucose, POC 277(H) 65 - 199 mg/dL [facility] Comment: Supplemental ranges: <140 mg/dL before meals <180 mg/dL all other times of the day Blood specimen (specimen) 11/22/2018 10:58 AM EDT 11/22/2018 10:58 AM EDT David Dejesus MD POINT OF CARE TEST ORDERABLES Performing Organization Address [facility] Co de Phone Number [facility] [place] [address] documented in this encounter Visit Diagnoses Not [...] CRNA) documented in this encounter Care Teams Hospital Internship Relationship Specialty Start Date End Date David Blue MD [address] [place] [address] PCP - General 04/01/10 02/02/19 documented as of this encounter
--- OUTSIDE RECORDS SUMMARY | 2024-02-29 21:31 | XMS_ITS | Encounter Summary ---
Author Organization [facility] Address [facility] [place] [address] Care Team Providers Care Electromechanical Equipment Tester Name Role Phone David Blue MD Primary Care Provider [phone] Encounter Details Date Type Department Care Team (Late st Contact Info) Description 03/19/2016 [place] [phone] Angela Thompson Social History Tobacco Use Types Packs/Day Years Used Date Smoking Tobacco: Every Day Smokeless Tobacco: Never Sex and Gender Information Value Date Recorded Sex Assigned at Not on file Gender Identity Not on file Sexual Orientation Not on file documented as of this encounter Miscellaneous Notes * Telephone Encounter - Angela Palacios - 03/19/2016 9:36 AM EST Caller: pharmacy retail support specialist from [place], [place] Call for: MA's Reason for call: [...] PM EDT Office Visit Cardiology at [address] [phone] Milagros Hernandez MD [facility] [place] [address] Scheduled Procedures Name Priority Associated Diagnoses Date/Ti me EGD, UPPER GI ENDOSCOPY (WRV U 2.09) Peptic stricture of esophagus documented as of this encounter Visit Diagnoses Not on filedocumented in this encounter Care Teams Electromechanical Equipment Tester Relationship Specialty Start Date End Date David Blue MD [address] [place] [address] PCP - General 04/01/10 02/02/19 documented as of this encounter
--- OUTSIDE RECORDS SUMMARY | 2024-02-29 21:31 | XMS_ITS | Encounter Summary ---
Author Organization [facility] Address [facility] [place] [address] Care Team Providers Care Body Service Team Member Name Role Phone David Blue MD Primary Care Provider [phone] Encounter Details Date Type Department Care Team (Late st Contact Info) Description 09/23/2016 Ancillary Procedure Radiology Library at [facility] [place] [address] Ana Gillespie APRN [address] [place], [place] [id number] Social History Tobacco Use Types Packs/Day Years [...] PM EDT Office Visit Cardiology at [address] [place] [address] Milagros Hernandez MD [facility] [place] [address] Scheduled Procedures Name Priority Associated Diagnoses Date/Ti [...] Gillespie APRN IMG FILM LIBRARY ORD ERABLES [place], [place] documented in this encounter Visit Diagnoses Not on filedocumented in this encounter Care Teams Body Service Team Member Relationship Specialty Start Date End Date David Blue MD [address] [place] [address] PCP - General 04/01/10 02/02/19 documented as of this encounter
--- OUTSIDE RECORDS SUMMARY | 2024-02-29 21:31 | XMS_ITS | Encounter Summary ---
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 last 04/03/14 Procedures PRO UPPER GI ENDOSCOPY, DIAGNOSTIC PRO COLONOSCOPY, DIAGNOSTIC EGD, UPPER GI ENDOSCOPY Referral ID Status Reason Start Date Expiration Date Visits Re quested Visits Authorized [id number] 1 1 Encounter Details Date Type Department Care Team (Late st Contact Info) Description 03/20/2016 11:00 AM EST - 03/20/2016 12:00 PM EST [place] [address] David Dejesus MD [facility] [place] [address] EGD WITH BIOPSY (WRVU 2.39) Social History [...] or concerns, please call us Wednesday-Wednesday Clinic [phone] 8a-5p Same Day Endo [phone] 7a-8p Nights and weekends contact [phone] and ask to speak to the russian rubber application technician. Follow up care is a fam part [...] meter kit. 1 each 0 12/14/2014 Insulin [place], Disposable, (BD INSULIN PEN NEEDLE UF MINI) [...] PM EDT Office Visit Cardiology at [address] [address] Milagros Hernandez MD [facility] [place] [address] Scheduled Procedures Name Priority Associated Diagnoses Date/Ti [...] Report (03/20/2016 12:43 PM EST) Final Diagnosis [id number] ?Location: 4T; EA07; A The signing pathologist [...] ing: (T1) ??peters 03/24/2016 5:02 PM EST [facility] GI Biopsy 03/20/2016 12:4 3 [...] Dejesus MD PATHOLOGY/CYTOLOGY ORDERABLES Performing Organization Address City/[facility]/ZIP Co de Phone Number [facility] [place] [phone] * Specimen to Pathology (surgical or derm) (03/20/2016 12:43 PM EST) AP Specimen 03/20/2016 12:4 3 PM EST 03/20/2016 12:43 PM EST Narrative [facility] - 03/20/2016 12:43 PM EST Specimen requisition ordered. ??Separate Pathology report to follow David Dejesus MD PATHOLOGY/CYTOLOGY ORDERABLES Performing Organization Address [facility]/[place] [address] * Specimen to Pathology (surgical or derm) (03/20/2016 12:43 PM EST) AP Specimen 03/20/2016 12:4 3 PM EST 03/20/2016 12:43 PM EST Narrative [facility] - 03/20/2016 12:43 PM EST Specimen requisition ordered. ??Separate Pathology report to follow David Dejesus MD PATHOLOGY/[place] [address] * Specimen to Pathology (surgical or derm) (03/20/2016 12:43 PM EST) AP Specimen 03/20/2016 12:4 3 PM EST 03/20/2016 12:43 PM EST Narrative [facility] - 03/20/2016 12:43 PM EST Specimen requisition ordered. ??Separate Pathology report to follow David Dejesus MD PATHOLOGY/CYTOLOGY ORDERABLES Performing Organization Address City/[facility]/[place] [address] * Specimen to Pathology (surgical or derm) (03/20/2016 12:43 PM EST) AP Specimen 03/20/2016 12:4 3 PM EST 03/20/2016 12:43 PM EST Narrative [facility] - 03/20/2016 12:43 PM EST Specimen requisition ordered. ??Separate Pathology report to follow David Dejesus MD PATHOLOGY/CYTOLOGY ORDERABLES Performing Organization Address City/[facility]/[place] [address] * Specimen to Pathology (surgical or derm) (03/20/2016 12:43 PM EST) AP Specimen 03/20/2016 12:4 3 PM EST 03/20/2016 12:43 PM EST Narrative [facility] - 03/20/2016 12:43 PM EST Specimen requisition ordered. ??Separate Pathology report to follow David Dejesus MD PATHOLOGY/CYTOLOGY [place] [address] * Specimen to Pathology (surgical or derm) (03/20/2016 12:43 PM EST) AP Specimen 03/20/2016 12:4 3 PM EST 03/20/2016 12:43 PM EST Narrative [facility] - 03/20/2016 12:43 PM EST Specimen requisition ordered. ??Separate Pathology report to follow David Djeesus MD PATHOLOGY/CYTOLOGY ORDERABLES Performing Organization Address [facility]/State/[place] [address] * COLONOSCOPY (03/20/2016 11:32 AM EST) COLONOSCOPY [facility] Endoscopy Procedure Date: 03/20/2016 11:32 AM ? Patient Name: Jennifer Irving ? N: [id number] ? Date of : 1960 ? Age: 55 ? Order #: [id number] ? Instrument Name: [id number] ? Procedure: ? Colonoscopy Indications: ? Screening for colorectal malignant ? neoplasm Providers: ? David Dejesus MD, Geronimo Joyner ? MD Valerie, Tapan Chong RN, ? Theodora Farrell, Installation And Repair Technician Referring : ?David Blue MD Medicines: ? [...] (03/20/2016 11:31 AM EST) UPPER GI ENDOSCOPY [facility] Endoscopy Procedure Date: 03/20/2016 11:31 AM ? Patient Name: Jennifer Irving ? Date of : 1960 ? Age: 55 ? Order #: [id number] ? Instrument Name: [id number] ? Procedure: ? Upper GI endoscopy Indications: [...] care under the ? supervision of a IMPROVEMENT LEAD was determined ? to be medically necessary [...] GENERAL SURGICAL ORD ERABLES Performing Organization Address City/State/[facility] Co de Phone Number [place] * (ABNORMAL) POCT Glucose (03/20/2016 10:54 AM EST) Glucose, POC 243(H) 65 - 199 mg/dL [facility] Comment: Supplemental ranges: <140 mg/dL before meals <180 mg/dL all other times of the day Blood specimen (specimen) 03/20/2016 10:54 AM EST 03/20/2016 10:54 AM EST David Dejesus MD POINT OF CARE TEST ORDERABLES [facility] [place] [address] * (ABNORMAL) POCT Fingerstick Glucose (03/20/2016) Glucose, [...] CRNA) documented in this encounter Care Teams Engraver Block Relationship Specialty Start Date End Date David Blue MD [address] [place] [address] PCP - General 04/01/10 02/02/19 documented as of this encounter
--- OUTSIDE RECORDS SUMMARY | 2024-02-29 21:31 | XMS_ITS | Encounter Summary ---
Author Organization [facility] [place] [address] Care Team Providers Care Corporate Tax Preparer Name Role Phone Ana Gillespie APRN Primary Care Provider [phone] Reason for Visit * Reason Onset Date Comments Medication Refill 09/08/2019 Encounter Details Date Type Department Care Team (Late st Contact Info) Description 09/08/2019 Refill [place] [phone] David Dejesus MD [facility] [place] [address] Social History Tobacco Use Types Packs/Day Years [...] PM EDT Office Visit Cardiology at [address] [phone] Milagros Hernandez MD [facility] [place] [address] Scheduled Procedures Name Priority Associated Diagnoses Date/Ti me EGD, UPPER GI ENDOSCOPY (WRV U 2.09) Peptic stricture of esophagus documented as of this encounter Visit Diagnoses Not on filedocumented in this encounter Care Teams Corporate Tax Preparer Relationship Specialty Start Date End Date Ana Gillespie APRN [address] [place] [address] PCP - General Family Medicine 02/03/19 documented as of this encounter
--- OUTSIDE RECORDS SUMMARY | 2024-02-29 21:31 | XMS_ITS | Encounter Summary ---
Author Organization [facility] [place] [address] Care Team Providers Care [employer] Principal Name Role Phone David Blue MD Primary Care Provider [phone] Encounter Details Date Type Department Care Team (Late st Contact Info) Description 10/12/2018 Telephone [place] [phone] Mariela Jordan Social History Tobacco Use Types [...] - 10/12/2018 12:11 PM EDT Jennifer Irving [id number] Diagnosis: Farrell's Esophagus 1. Have you ever [...] [] YES [x] NO If Yes send [employer] message to LE ENDO DEVICE CHECK 4. [...] PM EDT Office Visit Cardiology at [address] [address] Milagros Hernandez MD [facility] [place] [address] Scheduled Procedures Name Priority Associated Diagnoses Date/Ti me EGD, UPPER GI ENDOSCOPY (WRV U 2.09) Peptic stricture of esophagus documented as of this encounter Visit Diagnoses Not on filedocumented in this encounter Care Teams [employer] Principal Relationship Specialty Start Date End Date David Blue MD [address] [place] [address] PCP - General 04/01/10 02/02/19 documented as of this encounter
--- OUTSIDE RECORDS SUMMARY | 2024-02-29 21:31 | XMS_ITS | Encounter Summary ---
[place] [address] Care Team Providers Care Steam Heating Installer Name Role Phone David Blue MD Primary Care Provider [phone] Reason for Visit * Reason Onset Date Comments Prior Authorization 12/17/2014 Encounter Details Date Type Department Care Team (Late st Contact Info) Description 12/17/2014 Telephone [place] [phone] Radha Urena Prior Authorization Social History Tobacco [...] for request: TYPE II DM [place] Authorizing sales representative electric service name: BRYANT Faxed to health plan on: 12/17/14 Health plan decision: APPROVED Quantity approved: 4 FOR 30 DAYS Authorization number: [id number] Start date: 12/20/14 End date: 12/21/15 Patient notified? Pharmacy notified? documented in this encounter Plan of Treatment Upcoming Encounters Date Type Department Care Team (Late st Contact Info) Description 03/10/2024 4:00 PM EDT Office Visit Cardiology at [address] [phone] Milagros Hernandez MD [facility] [place] [address] Scheduled Procedures Name Priority Associated Diagnoses Date/Ti me EGD, UPPER GI ENDOSCOPY (WRV U 2.09) Peptic stricture of esophagus documented as of this encounter Visit Diagnoses Not on filedocumented in this encounter Care Teams Steam Heating Installer Relationship Specialty Start Date End Date Davdi Blue MD [address] [place] [address] PCP - General 04/01/10 02/02/19 documented as of this encounter
--- OUTSIDE RECORDS SUMMARY | 2024-02-29 21:31 | XMS_ITS | Encounter Summary ---
[place] [address] Care Team Providers Care Audio Video Tech Name Role Phone David Blue MD Primary Care Provider [phone] Reason for Visit * Reason Onset Date Comments Medication Refill 09/20/2018 Encounter Details Date Type Department Care Team (Late st Contact Info) Description 09/20/2018 Telephone [place] [address] Francoise Vides CMA GASTROENTEROLOGY DEPT [...] PM EDT Office Visit Cardiology at [address] [phone] Milagros Hernandez MD [facility] [place] [address] Scheduled Procedures Name Priority Associated Diagnoses Date/Ti me EGD, UPPER GI ENDOSCOPY (WRV U 2.09) Peptic stricture of esophagus documented as of this encounter Visit Diagnoses Not on filedocumented in this encounter Care Teams Audio Video Tech Relationship Specialty Start Date End Date David Blue MD [address] [place] [address] PCP - General 04/01/10 02/02/19 documented as of this encounter
--- OUTSIDE RECORDS SUMMARY | 2024-02-29 21:31 | XMS_ITS | Encounter Summary ---
Author Organization [facility] Address [facility] [place] [address] Care Team Providers Care Fruit Or Nut Farmworker Name Role Phone David Blue MD Primary Care Provider [phone] Encounter Details Date Type Department Care Team (Late st Contact Info) Description 12/14/2014 Orders [place] [phone] Dean Caban MD [facility] [place] [address] Type 2 diabetes mellitus, uncontrolled Social History [...] PM EDT Office Visit Cardiology at [address] [phone] Milagros Hernandez MD [facility] [place] [address] Scheduled Procedures Name Priority Associated Diagnoses Date/Ti me EGD, UPPER GI ENDOSCOPY (WRV U 2.09) Peptic stricture of esophagus documented as of this encounter Visit Diagnoses Diagnosis Type 2 diabetes mellitus, uncontrolled Type II or unspecified type diabetes mellitus without mention of complication, uncontrolled documented in this encounter Care Teams Fruit Or Nut Farmworker Relationship Specialty Start Date End Date David Blue MD [address] [place] [address] PCP - General 04/01/10 02/02/19 documented as of this encounter
--- OUTSIDE RECORDS SUMMARY | 2024-02-29 21:31 | XMS_ITS | Encounter Summary ---
Author Organization [facility] Address [facility] [place] [address] Care Team Providers Care Insulation Worker Furnace Installer Name Role Phone David Blue MD Primary Care Provider [phone] Encounter Details Date Type Department Care Team (Late st Contact Info) Description 02/24/2016 Orders [place] [phone] David Dejesus MD [facility] [place] [address] Screening breast examination Social History Tobacco Use [...] PM EDT Office Visit Cardiology at [address] [phone] Milagros Hernandez MD [facility] [place] [address] Scheduled Procedures Name Priority Associated Diagnoses Date/Ti me EGD, UPPER GI ENDOSCOPY (WRV U 2.09) Peptic stricture of esophagus documented as of this encounter Visit Diagnoses Diagnosis Screening breast examination Other screening breast examination documented in this encounter Care Teams Insulation Worker Furnace Installer Relationship Specialty Start Date End Date David Blue MD [address] [place] [address] PCP - General 04/01/10 02/02/19 documented as of this encounter
--- OUTSIDE RECORDS SUMMARY | 2024-02-29 21:31 | XMS_ITS | Encounter Summary ---
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 last 04/03/14 Procedures PRO UPPER GI ENDOSCOPY, DIAGNOSTIC PRO COLONOSCOPY, DIAGNOSTIC EGD, UPPER GI ENDOSCOPY Referral ID Status Reason Start Date Expiration Date Visits Re quested Visits Authorized [id number] 1 1 Encounter Details Date Type Department Care Team (Latest Contact Info) Description 03/20/2016 9:21 AM EST - 03/20/2016 1:24 PM EST Hospital En[place] [address] David Dejesus MD [facility] [place] [address] Discharge Disposition: Home Social History Tobacco Use [...] or concerns, please call us Wednesday-Wednesday Clinic [phone] 8a-5p Same Day Endo [phone] 7a-8p Nights and weekends contact [phone] and ask to speak to the lead rider skin lap bonder. Follow up care is a fam part [...] meter kit. 1 each 0 12/14/2014 Insulin [place], Disposable, (BD INSULIN PEN NEEDLE UF MINI) [...] PM EDT Office Visit Cardiology at [address] [address] Milagros Hernandez MD [facility] [place] [address] Scheduled Procedures Name Priority Associated Diagnoses Date/Ti [...] Report (03/20/2016 12:43 PM EST) Final Diagnosis [id number] ?Location: 4T; EA07; A The signing pathologist [...] ing: (T1) ??peters 03/24/2016 5:02 PM EST [facility] GI Biopsy 03/20/2016 12:4 [...] PM EST David Dejesus MD PATHOLOGY/CYTOLOGY ORDERABLES [facility] [place] [phone] * Specimen to Pathology (surgical or derm) (03/20/2016 12:43 PM EST) AP Specimen 03/20/2016 12:4 3 PM EST 03/20/2016 12:43 PM EST Narrative [facility] - 03/20/2016 12:43 PM EST Specimen requisition ordered. ??Separate Pathology report to follow David Dejesus MD PATHOLOGY/[place] [address] * Specimen to Pathology (surgical or derm) (03/20/2016 12:43 PM EST) AP Specimen 03/20/2016 12:4 3 PM EST 03/20/2016 12:43 PM EST Narrative [facility] - 03/20/2016 12:43 PM EST Specimen requisition ordered. ??Separate Pathology report to follow David Dejesus MD PATHOLOGY/[place] [address] * Specimen to Pathology (surgical or derm) (03/20/2016 12:43 PM EST) AP Specimen 03/20/2016 12:4 3 PM EST 03/20/2016 12:43 PM EST Narrative [facility] - 03/20/2016 12:43 PM EST Specimen requisition ordered. ??Separate Pathology report to follow David Dejesus MD PATHOLOGY/CYTOLOGY ORDERABLES Performing Organization Address City/[facility]/[place] [address] * Specimen to Pathology (surgical or derm) (03/20/2016 12:43 PM EST) AP Specimen 03/20/2016 12:4 3 PM EST 03/20/2016 12:43 PM EST Narrative [facility] - 03/20/2016 12:43 PM EST Specimen requisition ordered. ??Separate Pathology report to follow David Dejesus MD PATHOLOGY/[place] [address] * Specimen to Pathology (surgical or derm) (03/20/2016 12:43 PM EST) AP Specimen 03/20/2016 12:4 3 PM EST 03/20/2016 12:43 PM EST Narrative [facility] - 03/20/2016 12:43 PM EST Specimen requisition ordered. ??Separate Pathology report to follow David Dejesus MD PATHOLOGY/[place] [address] * Specimen to Pathology (surgical or derm) (03/20/2016 12:43 PM EST) AP Specimen 03/20/2016 12:4 3 PM EST 03/20/2016 12:43 PM EST Narrative [facility] - 03/20/2016 12:43 PM EST Specimen requisition ordered. ??Separate Pathology report to follow David Dejesus MD PATHOLOGY/CYTOLOGY ORDERABLES Performing Organization Address [facility]/State/ZIP Co de Phone Number [facility] [place] [address] * COLONOSCOPY (03/20/2016 11:32 AM EST) COLONOSCOPY [facility] Endoscopy Procedure Date: 03/20/2016 11:32 AM ? Patient Name: Jennifer Irving ? Date of : 1960 ? Age: 55 ? Order #: [id number] ? Instrument Name: [id number] ? Procedure: ? Colonoscopy Indications: ? Screening for colorectal malignant ? neoplasm Providers: ? David Dejesus MD, Geronimo Joyner ? MD Valerie, Tapan Chong RN, ? Theodora Farrell, Acoustic Engineer Referring MD: ?David Blue MD Medicines: [...] (03/20/2016 11:31 AM EST) UPPER GI ENDOSCOPY [facility] Endoscopy Procedure Date: 03/20/2016 11:31 AM ? Patient Name: Jennifer Irving ? Date of : 1960 ? Age: 55 ? Order #: [id number] ? Instrument Name: [id number] ? Procedure: ? Upper GI endoscopy Indications: [...] care under the ? supervision of a DESIGN QUALITY ENGINEER was determined ? to be medically necessary [...] ORD ERABLES Performing Organization Address [facility] de Phone Number [facility] * (ABNORMAL) POCT Glucose (03/20/2016 10:54 AM EST) Glucose, POC 243(H) 65 - 199 mg/dL [facility] Comment: Supplemental ranges: <140 mg/dL before meals <180 mg/dL all other times of the day Blood specimen (specimen) 03/20/2016 10:54 AM EST 03/20/2016 10:54 AM EST David Dejesus MD POINT OF CARE TEST ORDERABLES [facility] [place] [address] * (ABNORMAL) POCT Fingerstick Glucose (03/20/2016) Glucose, [...] CRNA) documented in this encounter Care Teams Investment Banking Analyst Relationship Specialty Start Date End Date David Blue MD [address] [place] [address] PCP - General 04/01/10 02/02/19 documented as of this encounter
--- OUTSIDE RECORDS SUMMARY | 2024-02-29 21:31 | XMS_ITS | Encounter Summary ---
Author Organization [facility] Address [facility] [place] [address] Care Team Providers Care Value Engineer Name Role Phone David Blue MD Primary Care Provider + [phone] Reason for Referral * Consultation (Routine) - Closed Specialty Diagnoses / Procedures Referred By Esperanza rodríguez Referred To Contact Endocrinology Diagnoses Diabetes mellitus type 2, uncontrolled Dean Caban MD [facility] [place] [address] Yin Rehman LD [facility] [place] [address] Referral ID Status Reason Start Date Expiration Date V isits Requested Visits Authorized [id number] Closed Continuity of Care 12/13/2014 12/13/2015 3 3 Reason for Visit * Reason Comments Diabetes Encounter Details Date Type Department Care Team (Late st Contact Info) Description 12/13/2014 1:40 PM EDT Office Visit Endocrinology at [place] [phone] Moustapha Agosto MD [facility] [place] [address] Diabetes mellitus type 2, uncontrolled Discharge Disposition: [...] with gestational diabetes 12 years ago and [id number] five years ago. The patient reports that [...] mg BID - Will coordinate visit with Architectural Renderer at next visit - Complication Monitoring: - [...] PM EDT Office Visit Cardiology at [address] [address] Milagros Hernandez MD [facility] [place] [address] Scheduled Procedures Name Priority Associated Diagnoses Date/Ti [...] / Creatinin Ratio, Urine 91 mcg/mg Cr [facility] Comment: Reference Range* Random collection (mcg/mg creatinine) Normal ?<30 Microalbuminuria ?? 30 - 300 Clinical Albuminuria ?? >300 *[place] Diabetes Association. Diabetic Nephropathy. Diabetes Care 1997;(Suppl 1):S24-S27 Exercise within 24 hour, infection, fever, CHF, marked hyperglycemia, and marked hypertension may elevate urinary albumin excretion over baseline values. Urine specimen (specimen) 12/13/2014 12:33 PM EDT 12/13/2014 12:39 PM EDT Narrative Resulting Agency Comment Spec In Lab Moustapha Agosto MD URINE ORDERABLES [facility] * (ABNORMAL) Hemoglobin A1c (12/13/2014 11:56 AM EDT) Hemoglobin A1c 10.6(H) 4.3 - 5.6 % [facility] Comment: Reference Range: 4.3 - 5.6% 5.7 [...] Mellitus, Diabetes Care 2013; 36: Suppl. 1, J57-64 Estimated Average Glucose 258 mg/dL [facility] Comment: eAG equivalents for HbA1c percentages: HbA1c(%) ?eAG(mg/dL) 6.0 ?126 6.5 ?140 7.0 ?154 7.5 ?169 8.0 ?183 8.5 ?197 9.0 ?212 9.5 ?226 10.0 ? 240 Limitations: The eAG calculation has not been validated on women, individuals below 18 years old and above 70 years old, and individuals with hemoglobinopathies. Additional resources are available on the ADA website: http://[employer].FINXI/DHMCadacalc Lucio BIGGS, Jeannie J, Edwin R, et al. ??Translating the A1C assay into estimated average glucose values. ??Diabetes Care 2008:31(8):0523-3126. Blood specimen (specimen) 12/13/2014 11:56 AM EDT 12/13/2014 12:19 PM EDT Narrative Resulting Agency Comment Spec In Lab Moustapha Agosto MD CHEMISTRY ORDERABLES Performing Organization Address City/State/[facility] Co [place] Phone Number [facility] documented in this encounter Visit Diagnoses Diagnosis Diabetes mellitus type 2, uncontrolled Type II or unspecified type diabetes mellitus without mention of complication, uncontrolled documented in this encounter Care Teams Value Engineer Relationship Specialty Start Date End Date David Blue MD [address] [place] [address] PCP - General 04/01/10 02/02/19 documented as of this encounter
--- OUTSIDE RECORDS SUMMARY | 2024-02-29 21:31 | XMS_ITS | Encounter Summary ---
[place] [address] Care Team Providers Care Ecommerce Analyst Name Role Phone David Blue MD Primary Care Provider + [phone] Reason for Visit * Reason Onset Date Comments Prior Authorization 09/27/2018 Encounter Details Date Type Department Care Team (Late st Contact Info) Description 09/27/2018 Telephone [place] [address] Francoise Vides CMA GASTROENTEROLOGY DEPT Prior Authorization [...] Prior Authorization 4L Gastroenterology / [place] [address] ?? Subscriber Insurance: [place] Medicaid ?? Phone: . Fax: ? Physician: David Dejesus ? Return ?? Pharmacy: [facility] ? Medication Requested: pantoprazole ?? Strength: 40 mg Frequency: BID ?? Disp.: 180 Refills: 3 ?? Currently taking: no ?? Diagnosis for this medication: Farrell's w/ dysplasia, and GERD ?? ICD-10 code: ?? Prior medications trialed in this patient: Pantoprazole QD, esomperazole, and omeprazole ? Medication: Outcome/Adverse Reactions: treatment failure ?? Decision: approved ?? Tracking number/Case number/Reference number: [id number] ?? Effective date: ?? Start: End: 09/28/2019 documented in this encounter Plan of Treatment Upcoming Encounters Date Type Department Care Team (Late st Contact Info) Description 03/10/2024 4:00 PM EDT Office Visit Cardiology at [address] [address] Milagros Hernandez MD [facility] [place] [address] Scheduled Procedures Name Priority Associated Diagnoses Date/Ti me EGD, UPPER GI ENDOSCOPY (WRV U 2.09) Peptic stricture of esophagus documented as of this encounter Visit Diagnoses Not on filedocumented in this encounter Care Teams Ecommerce Analyst Relationship Specialty Start Date End Date David Blue MD [address] [place] [address] PCP - General 04/01/10 02/02/19 documented as of this encounter
--- OUTSIDE RECORDS SUMMARY | 2024-02-29 21:31 | XMS_ITS | Encounter Summary ---
Author Organization [facility] Address [facility] [place] [address] Care Team Providers Care Trust Vault Custodian Name Role Phone David Blue MD Primary Care Provider + [phone] Encounter Details Date Type Department Care Team (Late st Contact Info) Description 07/22/2018 11:59 PM EDT Anesthesia Event [place] [phone] Vanessa Escalona MD [facility] [place] [address] Anesthesia Record Procedure Summary Procedure Name Responsible [...] OR MULTIPLE performed by David Dejesus MDat [facility] ENDOSCOPY ??? PRO UPPER GI ENDOSCOPY, BIOPSY N/A 03/20/2016 EGD WITH BIOPSY performed by David Dejesus MD at [facility] ENDOSCOPY ??? PRO UPPER GI ENDOSCOPY, DIAGNOSTIC N/A 04/03/2014 EGD, UPPER GI ENDOSCOPY performed by David Dejesus MD at [facility] ENDOSCOPY Social History Tobacco Use [...] discussed with patient who. Plan discussed with RETAIL MERCHANDISER. PAT Staff Note documented in this encounter Plan of Treatment Upcoming Encounters Date Type Department Care Team (Late st Contact Info) Description 03/10/2024 4:00 PM EDT Office Visit Cardiology at [address] [address] Milagros Hernandez MD [facility] [place] [address] Scheduled Procedures Name Priority Associated Diagnoses Date/Ti me EGD, UPPER GI ENDOSCOPY (WRV U 2.09) Peptic stricture of esophagus documented as of this encounter Visit Diagnoses Not on filedocumented in this encounter Care Teams Trust Vault Custodian Relationship Specialty Start Date End Date David Blue MD [address] [place] [address] PCP - General 04/01/10 02/02/19 documented as of this encounter
--- OUTSIDE RECORDS SUMMARY | 2024-02-29 21:31 | XMS_ITS | Encounter Summary ---
[place] [address] Care Team Providers Care Manager Alliance Name Role Phone David Blue MD Primary Care Provider [phone] Reason for Visit * Reason Onset Date Comments Prior Authorization 09/22/2017 Encounter Details Date Type Department Care Team (Late st Contact Info) Description 09/22/2017 Telephone [place] [address] Francoise Vides CMA GASTROENTEROLOGY DEPT Prior Authorization [...] Prior Authorization 4L Gastroenterology / [place] [address] Subscriber Insurance: [place] Medicaid Phone: . Fax: Physician: David Dejesus Return Pharmacy: [facility] Medication Requested: pantoprazole Strength: 40 mg Frequency: BID Disp.: 180 Refills: 3 Currently taking: no Diagnosis for this medication: Farrell's w/ dysplasia, and GERD ICD-10 code: Prior medications trialed in this patient: Pantoprazole QD, esomperazole, and omeprazole Medication: Outcome/Adverse Reactions: treatment failure Decision: approved Tracking number/Case number/Reference number: [id number] Effective date: Start: 09/22/2017 End: 09/22/2018 documented in this encounter Plan of Treatment Upcoming Encounters Date Type Department Care Team (Late st Contact Info) Description 03/10/2024 4:00 PM EDT Office Visit Cardiology at [address] [address] Milagros Hernandez MD [facility] [place] [address] Scheduled Procedures Name Priority Associated Diagnoses Date/Ti me EGD, UPPER GI ENDOSCOPY (WRV U 2.09) Peptic stricture of esophagus documented as of this encounter Visit Diagnoses Not on filedocumented in this encounter Care Teams Manager Alliance Relationship Specialty Start Date End Date David Blue MD [address] [place] [address] PCP - General 04/01/10 02/02/19 documented as of this encounter
--- OUTSIDE RECORDS SUMMARY | 2024-02-29 21:31 | XMS_ITS | Encounter Summary ---
Author Organization [facility] Address [facility] [place] [address] Care Team Providers Care Gis Technician Name Role Phone David Blue MD Primary Care Provider [phone] Encounter Details Date Type Department Care Team (Late st Contact Info) Description 06/22/2018 Telephone [place] [address] Erin Lynn Social History Tobacco Use Types [...] PM EDT Office Visit Cardiology at [address] [address] Milagros Hernandez MD [facility] [place] [address] Scheduled Procedures Name Priority Associated Diagnoses Date/Ti me EGD, UPPER GI ENDOSCOPY (WRV U 2.09) Peptic stricture of esophagus documented as of this encounter Visit Diagnoses Not on filedocumented in this encounter Care Teams Gis Technician Relationship Specialty Start Date End Date David Blue MD [address] [place] [address] PCP - General 04/01/10 02/02/19 documented as of this encounter
--- OUTSIDE RECORDS SUMMARY | 2024-02-29 21:31 | XMS_ITS | Encounter Summary ---
[place] [address] Care Team Providers Care Cosmetic Sales Assistant Name Role Phone David Blue MD Primary Care Provider [phone] Reason for Visit * Reason Onset Date Comments Prior Authorization 02/26/2016 Encounter Details Date Type Department Care Team (Late st Contact Info) Description 02/26/2016 Telephone [place] [address] Francoise Vides CMA GASTROENTEROLOGY DEPT Prior Authorization [...] Prior Authorization 4L Gastroenterology / [place] [address] Subscriber Insurance: [place] medicaid Physician: David Dejesus Return Pharmacy: [facility] [...] lapse in usage. Tracking number/Case number/Reference number: [id number] Effective date: Start: End: documented in this encounter Plan of Treatment Upcoming Encounters Date Type Department Care Team (Late st Contact Info) Description 03/10/2024 4:00 PM EDT Office Visit Cardiology at [address] [address] Milagros Hernandez MD [facility] [place] [address] Scheduled Procedures Name Priority Associated Diagnoses Date/Ti me EGD, UPPER GI ENDOSCOPY (WRV U 2.09) Peptic stricture of esophagus documented as of this encounter Visit Diagnoses Not on filedocumented in this encounter Care Teams Cosmetic Sales Assistant Relationship Specialty Start Date End Date David Blue MD [address] [place] [address] PCP - General 04/01/10 02/02/19 documented as of this encounter
--- OUTSIDE RECORDS SUMMARY | 2024-02-29 21:31 | XMS_ITS | Encounter Summary ---
Author Organization [facility] [place] [address] Care Team Providers Care Waste Water Plant Operator Name Role Phone David Blue MD Primary Care Provider + [phone] Encounter Details Date Type Department Care Team (Late Contact Info) Description 07/06/2017 Telephone [place] [phone] Ami Chao RN Social History Tobacco Use [...] personal issue. Call returned to Jennifer at [phone]. Spoke to Rogelio. Explained that Dr. Dejesus [...] PM EDT Office Visit Cardiology at [address] [address] Milagros Hernandez MD [facility] [place] [address] Scheduled Procedures Name Priority Associated Diagnoses Date/Ti me EGD, UPPER GI ENDOSCOPY (WRV U 2.09) Peptic stricture of esophagus documented as of this encounter Visit Diagnoses Not on filedocumented in this encounter Care Teams Waste Water Plant Operator Relationship Specialty Start Date End Date David Blue MD [address] [place] [address] PCP - General 04/01/10 02/02/19 documented as of this encounter
--- OUTSIDE RECORDS SUMMARY | 2024-02-29 21:31 | XMS_ITS | Encounter Summary ---
Author Organization [facility] Address [facility] [place] [address] Care Team Providers Care Soapstoner Name Role Phone David Blue MD Primary Care Provider + [phone] Encounter Details Date Type Department Care Team (Late st Contact Info) Description 09/21/2017 Telephone [place] [address] Ami Chao RN Social History [...] PM EDT Office Visit Cardiology at [address] [address] Milagros Hernandez MD [facility] [place] [address] Scheduled Procedures Name Priority Associated Diagnoses Date/Ti me EGD, UPPER GI ENDOSCOPY (WRV U 2.09) Peptic stricture of esophagus documented as of this encounter Visit Diagnoses Not on filedocumented in this encounter Care Teams Soapstoner Relationship Specialty Start Date End Date David Blue MD [address] [place] [address] PCP - General 04/01/10 02/02/19 documented as of this encounter
--- OUTSIDE RECORDS SUMMARY | 2024-02-29 21:31 | XMS_ITS | Encounter Summary ---
Author Organization [facility] Address [facility] [place] [address] Care Team Providers Care Project Manager/Team Coach Name Role Phone David Blue MD Primary Care Provider [phone] Encounter Details Date Type Department Care Team (Late st Contact Info) Description 12/24/2014 Orders [place] [phone] David Dejesus MD [facility] [address] Social History Tobacco Use Types Packs/Day Years [...] PM EDT Office Visit Cardiology at [address] [phone] Milagros Hernandez MD [facility] [place] [address] Scheduled Procedures Name Priority Associated Diagnoses Date/Ti me EGD, UPPER GI ENDOSCOPY (WRV U 2.09) Peptic stricture of esophagus documented as of this encounter Visit Diagnoses Not on filedocumented in this encounter Care Teams Project Manager/Team Coach Relationship Specialty Start Date End Date David Bleu MD [address] [place] [address] PCP - General 04/01/10 02/02/19 documented as of this encounter
--- OUTSIDE RECORDS SUMMARY | 2024-02-29 21:31 | XMS_ITS | Encounter Summary ---
Author Organization [facility] Address [facility] [place] [address] Care Team Providers Care Director Of Public Relations Name Role Phone David Blue MD Primary Care Provider [phone] Encounter Details Date Type Department Care Team (Late st Contact Info) Description 03/02/2018 Orders [place] [phone] David Dejesus MD [facility] [place] [address] Breast cancer screening Social History Tobacco Use [...] PM EDT Office Visit Cardiology at [address] [address] Milagros Hernandez MD [facility] [address] Scheduled Procedures Name Priority Associated Diagnoses Date/Ti me EGD, UPPER GI ENDOSCOPY (WRV U 2.09) Peptic stricture of esophagus documented as of this encounter Visit Diagnoses Diagnosis Breast cancer screening Breast screening, unspecified documented in this encounter Care Teams Director Of Public Relations Relationship Specialty Start Date End Date David Blue MD [address] [place] [address] PCP - General 04/01/10 02/02/19 documented as of this encounter
--- OUTSIDE RECORDS SUMMARY | 2024-02-29 21:31 | XMS_ITS | Encounter Summary ---
Author Organization [facility] Address [facility] [place] [address] Care Team Providers Care Small Package And Bundle Sorter Clerk Name Role Phone Ana Gillespie AVUGHN Primary Care Provider [phone] Reason for Referral * Consultation (Routine) - Duplicate Referral Specialty Diagnoses / Procedures Referred By Esperanza rodríguez Referred To Contact Gastroenterology Diagnoses Functional diarrhea David Dejesus MD [facility] [place] [address] [facility] Endoscopy [address] [place] [phone] Referral ID Status Reason Start Date Expiration Date Visits Requested Visits Authorized [id number] Duplicate Referral Consult, Test & Treat 10/16/2019 10/15/2020 1 1 Encounter Details Date Type Department Care Team ([facility] Contact Info) Description 10/16/2019 Orders [place] [address] David Dejesus MD [facility] [place] [place] [address] Functional diarrhea Social History Tobacco Use Types [...] PM EDT Office Visit Cardiology at [address] [address] Milagros Hernandez MD [facility] [place] [address] Scheduled Procedures Name Priority Associated Diagnoses Date/Ti me EGD, UPPER GI ENDOSCOPY (WRV U 2.09) Peptic stricture of esophagus Scheduled Referrals Name Type Priority Associated Diagnoses Order Schedule Referral to Gastroenterology Outpatient Referral Routine Functional diarrhea Ordered: 10/16/2019 documented as of this encounter Visit Diagnoses Diagnosis Functional diarrhea documented in this encounter Care Teams Small Package And Bundle Sorter Clerk Relationship Specialty Start Date End Date Ana Gillespie APRN [address] [place] [address] PCP - General Family Medicine 02/03/19 documented as of this encounter
--- OUTSIDE RECORDS SUMMARY | 2024-02-29 21:32 | XMS_ITS | Encounter Summary ---
Author Organization [facility] Address [address] [place] [address] Care Team Providers Care Hair Spring Cutter Name Role Phone David Blue MD Primary Care Provider [phone] Encounter Details Date Type Department Care Team (Late st Contact Info) Description 07/18/2021 Lab Requisition [facility] Pathology & Laboratory Medicine - [facility] [address] [place] [address] Kavita Viera, DO [address] [place] [address] Encounter for other general examination Social History [...] management options, if applicable. 07/22/2021 10:39 EDT [facility] Final Diagnosis A. STOMACH, ANTRUM, BIOPSY: - Transitional mucosa with reactive (chemical) gastropathy. - Negative for Helicobacter pylori on H&E stained sections. B. ESOPHAGUS, MID-DISTAL, BIOPSY: - Fibrinopurulent exudate. - No intact epithelium identified. 07/22/2021 10:39 [facility] Attestation By the signature below, the attending physician certifies that they have 1) personally conducted a gross and/or microscopic examination of the described specimen(s), and/or personally interpreted the results of laboratory testing of the described specimen(s), and 2) personally rendered or confirmed the above diagnosis. 07/22/2021 10:39 [facility] at 1039 Clinical History Intractable nausea, vomiting 07/22/2021 10:39 [facility] Gross Description A. Received [...] B1. ROSLYN CACERES(ASCP) 07/21/2021 9:55 07/22/2021 10:39 [facility] Performing Lab [facility] 10:39 [facility] Scanned Images 07/22/2021 10:39 [facility] Tissue ENTIRE ESOPHAGUS / Unknown 07/18/2021 14:10 EST 07/18/2021 22:23 EST Tissue specimen (specimen) ESOPHAGEAL STRUCTURE / Unknown 07/18/2021 14:10 EST 07/18/2021 22:23 EST Kavita Viera DO PATHOLOGY ORDER BENI [facility] [address] [place] [address] documented in this encounter Visit Diagnoses Diagnosis Encounter for other general examination documented in this encounter Care Teams Hair Spring Cutter Relationship Specialty Start Date End Date David Blue MD [address] [place] [address] PCP - General 07/15/09 documented as of this encounter
--- OUTSIDE RECORDS SUMMARY | 2024-02-29 21:32 | XMS_ITS | Encounter Summary ---
Author Organization [facility] Address [facility] [place] [address] Care Team Providers Care Asparagus Buncher Name Role Phone David Blue MD Primary Care Provider [phone] Encounter Details Date Type Department Care Team (Late st Contact Info) Description 01/15/2011 Ancillary Procedure Radiology Library at [place] [place] [address] Ana Gillespie APRN [address] [place] [address] Social History Tobacco Use Types [...] PM EDT Office Visit Cardiology at [address] [address] Milagros Hernandez MD [facility] [address] Scheduled Procedures Name Priority Associated Diagnoses Date/Ti me EGD, UPPER GI ENDOSCOPY (WRV U 2.09) Peptic stricture of esophagus documented as of this encounter Procedures Procedure Name Priority Date/Time Associated Diagnosis Comments FILM LIBRARY STORAGE ONLY MAMMO Routine 01/15/2011 12:00 AM EDT documented in this encounter Results * Film Library- Storage Only Mammo (01/15/2011 12:00 AM EDT) Narrative [facility] - 02/13/2019 8:41 AM EDT This exam is auto-finalizing. It's purpose is for storage only. Ana iGllespie APRN [facility] FILM LIBRARY ORD ERABLES [place], [place] documented in this encounter Visit Diagnoses Not on filedocumented in this encounter Care Teams Asparagus Buncher Relationship Specialty Start Date End Date David Blue MD [address] [place] [address] PCP - General 04/01/10 02/02/19 documented as of this encounter
--- OUTSIDE RECORDS SUMMARY | 2024-02-29 21:32 | XMS_ITS | Encounter Summary ---
Author Organization [facility] [place] [address] Care Team Providers Care Software Qa System Specialist Name Role Phone Ana Gillespie APRN Primary Care Provider [phone] Encounter Details Date Type Department Care Team (Late st Contact Info) Description 09/06/2009 Orders Only [place] [phone] Kathy Romero MD [facility] [address] Social History Tobacco Use Types Packs/Day Years [...] PM EDT Office Visit Cardiology at [address] [phone] Milagros Hernandez MD [facility] [place] [address] Scheduled Procedures Name Priority Associated Diagnoses Date/Ti me EGD, UPPER GI ENDOSCOPY (WRV U 2.09) Peptic stricture of esophagus documented as of this encounter Procedures Procedure Name Priority Date/Time Associated Diagnosis Comments NON-FINANCIAL CONTROLLER FINAL REPORT Routine 09/06/2009 12:50 PM EDT documented in this encounter Results * Non-Low Raw Sugar Cutter Final Report (09/06/2009 12:50 PM EDT) Non-Low Raw Sugar Cutter Final Report [id number] ? Location: [facility] The signing pathologist has (i) examined the relevant preparation(s) for the specimen(s) and (ii) rendered or confirmed the diagnosis(es). . ? Pathology Non-Low Raw Sugar Cutter Cytology Final Report Clinical Information Specimen Source: [...] cytologic impression. ??Please see concurrent surgical specimen, [id number], for additional information. DARCY BARNETT 09/06/2009 12:5 [...] documented as of this encounter Care Teams Software Qa System Specialist Relationship Specialty Start Date End Date Ana Gillespie APRN [address] [place] [address] PCP - General Family Medicine 02/03/19 documented as of this encounter
--- OUTSIDE RECORDS SUMMARY | 2024-02-29 21:32 | XMS_ITS | Encounter Summary ---
Author Organization [facility] [place] [address] Care Team Providers Care Body And Fender Worker Name Role Phone Unavailable Primary Care Provider Unavailabl e Encounter Details Date Type Department Care Team (Late st Contact Info) Description 03/01/2009 Ancillary Procedure Radiology Library at [facility] [place] [address] Ana Gillespie APRN [address] [place] [address] Social History Tobacco Use Types Packs/Day Years [...] PM EDT Office Visit Cardiology at [address] [place] [address] Milagros Hernandez MD [facility] [place] [address] Scheduled Procedures Name Priority Associated Diagnoses Date/Ti me EGD, UPPER GI ENDOSCOPY (WRV U 2.09) Peptic stricture of esophagus documented as of this encounter Procedures Procedure Name Priority Date/Time Associated Diagnosis Comments FILM LIBRARY STORAGE ONLY MAMMO Routine 03/01/2009 12:00 AM EDT documented in this encounter Results * Film Library- Storage Only Mammo (03/01/2009 12:00 AM EDT) Narrative [facility] - 02/13/2019 8:43 AM EDT This exam is auto-finalizing. It's purpose is for storage only. Ana Gillespie APRN [facility] FILM LIBRARY ORD ERABLES [facility] [place] documented in this encounter Visit Diagnoses Not on filedocumented in this encounter
--- OUTSIDE RECORDS SUMMARY | 2024-02-29 21:32 | XMS_ITS | Encounter Summary ---
Author Organization [facility] Address [address] [place] [address] Care Team Providers Care Jackscrew Man Name Role Phone David Blue MD Primary Care Provider [phone] Encounter Details Date Type Department Care Team (Late st Contact Info) Description 09/14/2007 Results Only [facility] conversion [address] [place] [address] Kassidy Villafana FNP [address] [place], [place] [address] Social History Tobacco Use Types Packs/Day Years [...] ? JENNIFER IRVING ? Accession #: ? [id number] : ? 1960 (Age: 47) ??F ?Collect Date: ? 09/14/2007 Location: ? [facility] ? Receive Date: ? 09/16/2007 Provider: ?KASSIDY VILLAFANA SPRING FLOOR SERVICE WORKER Copy to: ? Specimen/Source: ?ThinPrep Pap Test, Cervix/Endocervix, processed on [employer] ThinPrep Imaging System, with manual evaluation Last [...] Kassidy DUDLEYP PATHOLOGY ORDERABLES Performing Organization Address City/State/[facility] Co de Phone Number DULCE DAVIES [address] [place] [address] documented in this encounter Visit Diagnoses Not on filedocumented in this encounter Care Teams Jackscrew Man Relationship Specialty Start Date End Date David Bule MD [address] [place] [address] PCP - General 07/15/09 documented as of this encounter
--- OUTSIDE RECORDS SUMMARY | 2024-02-29 21:32 | XMS_ITS | Encounter Summary ---
Author Organization [facility] Address [address] [place] [address] Care Team Providers Care Cardiac Monitor Technician Name Role Phone David Blue MD Primary Care Provider [phone] Encounter Details Date Type Department Care Team (Late st Contact Info) Description 01/06/2023 Lab Requisition [facility] Pathology & Laboratory Medicine - [facility] [address] [place], [place] [address] Outr Resulting Lab, Provider Social History Tobacco [...] 19 - 88 pg/mL 01/06/2023 18:58 EDT [facility] Blood VENOUS BLOOD / Unknown 01/05/2023 11:20 EDT 01/06/2023 17:02 EDT Provider Outr Resulting Lab CHEMISTRY & BLOOD GAS ORDERABLES [facility] [address] [place] [address] documented in this encounter Visit Diagnoses Not on filedocumented in this encounter Care Teams Cardiac Monitor Technician Relationship Specialty Start Date End Date David Blue MD [address] [place] [address] PCP - General 07/15/09 documented as of this encounter
--- OUTSIDE RECORDS SUMMARY | 2024-02-29 21:32 | XMS_ITS | Encounter Summary ---
Author Organization [facility] Address [address] [place] [address] Care Team Providers Care Embedded Software Manager Name Role Phone David Blue MD Primary Care Provider [phone] Encounter Details Date Type Department Care Team (Late st Contact Info) Description 02/01/2023 Lab Requisition [facility] Pathology & Laboratory Medicine - [facility] [address] [place], [place] [address] Outr Resulting Lab, Provider Social History Tobacco [...] 11.7 See Note ??g/mL 02/01/2023 17:40 EDT [facility] Comment: NOTE: Reference Ranges: Trough: ??10.0 - 20.0 ug/mL Peak: ??25.0 - 50.0 ug/mL Blood VENOUS BLOOD / Unknown 02/01/2023 7:55 EDT 02/01/2023 17:12 EDT Provider Outr Resulting Lab CHEMISTRY & BLOOD GAS ORDERABLES Performing Organization Address City/State/[facility] Co de Phone Number [facility] [address] [place] [address] documented in this encounter Visit Diagnoses Not on filedocumented in this encounter Care Teams Embedded Software Manager Relationship Specialty Start Date End Date David Blue MD [address] [place] [address] PCP - General 07/15/09 documented as of this encounter
--- OUTSIDE RECORDS SUMMARY | 2024-02-29 21:32 | XMS_ITS | Encounter Summary ---
Author Organization [facility] Address [facility] [place] [address] Care Team Providers Care Battery Charger Conveyor Line Name Role Phone David Blue MD Primary Care Provider [phone] Encounter Details Date Type Department Care Team (Latest Contact Info) Description 04/03/2014 10:08 AM EST - 04/03/2014 2:04 PM EST Hospital Encounter Gastroenterology at [facility] [place] [address] David Dejesus MD [facility] [place] [address] Discharge Disposition: Home Social History Tobacco Use [...] - 04/03/2014 12:48 PM EST Please call [phone], before 5pm with problems, questions or concerns, after 5pm call the Hospital at [phone] and ask to speak to the Subcontracts Manager cable television technician and the voltmeter operator will contactthat person for you. Discharge [...] Everywhere. * EGD (UPPER ENDOSCOPY) : POST-OP (ANGOLAN) documented in this encounter Medications at Time [...] PM EDT Office Visit Cardiology at [address] [address] Milagros Hernandez MD [facility] [place] [address] Scheduled Procedures Name Priority Associated Diagnoses Date/Ti [...] [facility] ? Provider: ?? DAVID DEJESUS ??Pt. Name: ?? ISHAN IRVING ? Acc #: ?[id number] ?Pt. ? Col Date: ?? 04/03/2014 ?/Sex: [...] [facility] ? Provider: ?? DAVID DEJESUS ??Pt. Name: ?? ISHAN IRVING ? Acc #: ?[id number] ?Pt. ? Col Date: ?? 04/03/2014 ?/Sex: [...] Diagnosis: ? Same 04/04/2014 9:11 PM EST [facility] GI Biopsy 04/03/2014 12:3 7 PM EST 04/03/2014 12:37 PM EST GI Biopsy 04/03/2014 12:3 7 PM EST 04/03/2014 12:37 PM EST GI Biopsy 04/03/2014 12:3 7 PM EST 04/03/2014 12:37 PM EST GI Biopsy 04/03/2014 12:3 7 PM EST 04/03/2014 12:37 PM EST David Dejesus MD PATHOLOGY/CYTOLOGY ORDERABLES Performing Organization Address City/[facility]/ZIP Co de Phone Number D[facility]Y [facility] [address] * Specimen to Pathology (surgical or derm) (04/03/2014 12:37 PM EST) AP Specimen 04/03/2014 12:3 7 PM EST 04/03/2014 12:37 PM EST Narrative DARCY OQUENDOIUM - 04/03/2014 12:37 PM EST Specimen requisition ordered. ??Separate Pathology report to follow David Dejesus MD PATHOLOGY/CYTOLOGY ORDERABLES Performing Organization Address City/[facility] Co de Phone Number [facility] * Specimen to Pathology (surgical or derm) (04/03/2014 12:37 PM EST) AP Specimen 04/03/2014 12:3 7 PM EST 04/03/2014 12:37 PM EST Narrative [facility] - 04/03/2014 12:37 PM EST Specimen requisition ordered. ??Separate Pathology report to follow David Dejesus MD PATHOLOGY/CYTOLOGY ORDERABLES [facility] * Specimen to Pathology (surgical or derm) (04/03/2014 12:37 PM EST) AP Specimen 04/03/2014 12:3 7 PM EST 04/03/2014 12:37 PM EST Narrative CERNER AZRAIUM - 04/03/2014 12:37 PM EST Specimen requisition ordered. ??Separate Pathology report to follow David Dejesus MD PATHOLOGY/CYTOLOGY ORDERABLES Performing Organization Address [facility] Co de Phone Number DARCY BARNETT * Specimen to Pathology (surgical or derm) (04/03/2014 12:37 PM EST) AP Specimen 04/03/2014 12:3 7 PM EST 04/03/2014 12:37 PM EST Narrative DARCY BARNETT - 04/03/2014 12:37 PM EST Specimen requisition ordered. ??Separate Pathology report to follow David Dejesus MD PATHOLOGY/CYTOLOGY ORDERABLES Performing Organization Address [facility] Co de Phone Number DARCY BARNETT * UPPER GI ENDOSCOPY (04/03/2014 12:06 PM EST) UPPER GI ENDOSCOPY [facility] Endoscopy Patient Name: Ishan Irving ? Procedure Date: 04/03/2014 12:06 PM ? [facility]: [id number] ? Date of : 1960 ? Age: 53 ? Order #: [id number] ? Procedure: ? Upper GI endoscopy Indications: [...] EST David Blue MD GENERAL SURGICAL ORD [facility] Performing Organization Address City/State/[facility] Co de Phone Number PROVATION documented [...] RN) documented in this encounter Care Teams Battery Charger Conveyor Line Relationship Specialty Start Date End Date David Blue MD [address] [place] [address] PCP - General 04/01/10 02/02/19 documented as of this encounter
--- OUTSIDE RECORDS SUMMARY | 2024-02-29 21:32 | XMS_ITS | Encounter Summary ---
Author Organization [facility] Address [address] [place] [address] Care Team Providers Care Casting Machine Operator Name Role Phone David Blue MD Primary Care Provider [phone] Encounter Details Date Type Department Care Team (Late st Contact Info) Description 08/13/2022 Lab Requisition [facility] Pathology & Laboratory Medicine - [facility] [address] [place], [place] [address] Outr Resulting Lab, Provider Social History Tobacco [...] Antigen Detection Negative Negative 08/13/2022 23:31 EDT [facility] Urine URINE / Unknown 08/12/2022 1 8:12 EDT 08/13/2022 18:30 EDT Provider Outr Resulting Lab MICROBIOLOGY - GENERAL ORDERABLES [facility] [address] [place] [address] documented in this encounter Visit Diagnoses Not on filedocumented in this encounter Care Teams Casting Machine Operator Relationship Specialty Start Date End Date David Blue MD [address] [place] [address] PCP - General 07/15/09 documented as of this encounter
--- OUTSIDE RECORDS SUMMARY | 2024-02-29 21:32 | XMS_ITS | Encounter Summary ---
Author Organization [facility] Address [address] [place] [address] Care Team Providers Care Chiropractor Assistant Name Role Phone David Blue MD Primary Care Provider [phone] Encounter Details Date Type Department Care Team (Late st Contact Info) Description 05/08/2003 Results Only [facility] - Maple conversion [address] [place] [address] Rock Samson MD [address] [place], [place] [address] Social History Tobacco Use Types Packs/Day Years [...] Samson MD PATHOLOGY ORDERABLES Performing Organization Address City/State/[facility] Co de Phone Number DULCE DAVIES [address] [place] [address] documented in this encounter Visit Diagnoses Not on filedocumented in this encounter Care Teams Chiropractor Assistant Relationship Specialty Start Date End Date David Blue MD [address] [place] [address] PCP - General 07/15/09 documented as of this encounter
--- OUTSIDE RECORDS SUMMARY | 2024-02-29 21:32 | XMS_ITS | Encounter Summary ---
Author Organization [facility] Address [address] [place] [address] Care Team Providers Care Regional Director Of Finance Name Role Phone David Blue MD Primary Care Provider [phone] Encounter Details Date Type Department Care Team (Late st Contact Info) Description 11/28/2010 Results Only [facility] Laboratory Services - [facility] [address] [place], [place] [id number] Sergey Kraus, DO [address] [facility] [address] [place], [place] [phone] Social History Tobacco Use Types Packs/Day Years [...] ? IRVING, JENNIFER ? Accession #: ? [id number] ? : ? 1960 (Age: 50) ??F ? Collect Date: ? 11/28/2010 ? Location: ? [facility] ? Receive Date: ? 11/28/2010 ? Provider: SERGEY KRAUS DO ? Copy to: DAVID BLUE MD ? Final Pathologic Diagnosis: ? Colon, 20 cm, polyp, biopsy: ? - Hyperplastic polyp. ??See comment. ? Comment: ? Deeper levels have been examined. Infrastructure Security Architect sections of this case have been reviewed [...] submitted in a single cassette. ( ? [facility] ? End of Report ? DULCE DAVIES 11/28/2010 11/28/2010 18: 52 EDT Sergey Kraus DO PATHOLOGY ORDER BENI [facility] [address] [place] [address] documented in this encounter Visit Diagnoses Not on filedocumented in this encounter Care Teams Regional Director Of Finance Relationship Specialty Start Date End Date David Blue MD [address] [place] [address] PCP - General 07/15/09 documented as of this encounter
--- OUTSIDE RECORDS SUMMARY | 2024-02-29 21:32 | XMS_ITS | Referral Summary ---
Author Organization [facility] Address [address] [place] [address] Care Team Providers Care Managed Care Analyst Name Role Phone David Blue MD Primary Care Provider [phone] Social History Tobacco Use Types Packs/Day Years Used Date Smoking Tobacco: Never Assessed Sex and Gender Information Value Date Recorded Sex Assigned at Not on file Gender Identity Not on file Sexual Orientation Not on file Plan of Treatment Not on file Care Teams Managed Care Analyst Relationship Specialty Start Date End Date David Blue MD [address] [place] [address] PCP - General 07/15/09
--- OUTSIDE RECORDS SUMMARY | 2024-02-29 21:32 | XMS_ITS | Clinical Summary ---
Author Organization [facility] Address [address] [place] [address] Care Team Providers Care Management Technician Name Role Phone David Blue MD Primary Care Provider [phone] Social History Tobacco Use Types Packs/Day Years [...] COVID-19 Vaccine (2022-24 season) 2023 Care Teams Management Technician Relationship Specialty Start Date End Date David Blue MD [address] [place] [address] PCP - General 07/15/09
--- OUTSIDE RECORDS SUMMARY | 2024-02-29 21:32 | XMS_ITS | Encounter Summary ---
Author Organization [facility] Address [facility] [place] [address] Care Team Providers Care Cyber Transport Systems Specialist Name Role Phone David Blue MD Primary Care Provider [phone] Reason for Referral * Surgical - Closed Specialty Diagnoses / Procedures Referred By Esperanza rodríguez Referred To Contact General Surgery Diagnoses Esophageal reflux David Dejesus MD [facility] GASTROENTEROLOGY [place] [id number] Baljinder Maharaj MD [facility] [place] [address] Referral ID Status Reason Start Date Expiration Date V isits Requested Visits Authorized [id number] Closed Specialty Service Requested 01/16/2014 07/15/2014 1 1 Encounter Details Date Type Department Care Team (Late st Contact Info) Description 01/16/2014 Orders [place] [address] David Dejesus MD [facility] [place] [address] Esophageal reflux (Primary Dx) Social History Tobacco [...] PM EDT Office Visit Cardiology at [address] [address] Milagros Hernandez MD [facility] [place] [address] Scheduled Orders Name Type Priority Associated Diagnoses [...] Primary documented in this encounter Care Teams Cyber Transport Systems Specialist Relationship Specialty Start Date End Date David Blue MD [address] [place] [address] PCP - General 04/01/10 02/02/19 documented as of this encounter
--- OUTSIDE RECORDS SUMMARY | 2024-02-29 21:32 | XMS_ITS | Encounter Summary ---
Author Organization [facility] Address [address] [place] [address] Care Team Providers Care Windows Consultant Name Role Phone David Blue MD Primary Care Provider [phone] Encounter Details Date Type Department Care Team (Late st Contact Info) Description 12/23/2000 Results Only [facility] - Maple conversion [address] [place] [address] Rock Samson MD [address] [place], [place] [address] Social History Tobacco Use Types Packs/Day Years [...] ? JENNIFER IRVING ? Accession #: ? [id number] : ? 1960 (Age: 40) ??F ?Collect [...] MD PATHOLOGY ORDERABLES Performing Organization Address City/State/[facility] Co de Phone Number [facility] [address] [place] [address] documented in this encounter Visit Diagnoses Not on filedocumented in this encounter Care Teams Windows Consultant Relationship Specialty Start Date End Date David Blue MD [address] [place] [address] PCP - General 07/15/09 documented as of this encounter
--- OUTSIDE RECORDS SUMMARY | 2024-02-29 21:32 | XMS_ITS | Encounter Summary ---
Author Organization [facility] Address [address] [place] [address] Care Team Providers Care Relay Mechanic Name Role Phone David Blue MD Primary Care Provider [phone] Encounter Details Date Type Department Care Team (Late st Contact Info) Description 06/10/2021 Lab Requisition [facility] Pathology & Laboratory Medicine - [facility] [address] [place] [address] Merly Purcell, DO [address] [facility] [address] [place] [address] Encounter for other general examination [...] management options, if applicable. 06/11/2021 13:01 EST [facility] Final Diagnosis A. JEJUNUM, PROXIMAL, [...] - Consistent with Hyperplastic polyp. 06/11/2021 13:01 [facility] Attestation By the signature below, the attending physician certifies that they have 1) personally conducted a gross and/or microscopic examination of the described specimen(s), and/or personally interpreted the results of laboratory testing of the described specimen(s), and 2) personally rendered or confirmed the above diagnosis. 06/11/2021 13:01 [facility] SERVICES at [address] Clinical History Anemia, abdominal pain 06/11/2021 13:01 [facility] Gross Description A. Received [...] N1. ROSLYN EARLY(ASCP) 06/10/2021 19:05 06/11/2021 13:01 [facility] Performing Lab [facility] 06/11/2021 13:01 [facility] Scanned Images 06/11/2021 13:01 [facility] Tissue SPECIMEN FROM RECTUM [...] Purcell DO PATHOLOGY ORDERABLES Performing Organization Address City/State/[facility] Co de Phone Number [facility] [address] [place] [address] documented in this encounter Visit Diagnoses Diagnosis Encounter for other general examination documented in this encounter Care Teams Relay Mechanic Relationship Specialty Start Date End Date David Blue MD [address] [place] [address] PCP - General 07/15/09 documented as of this encounter
--- OUTSIDE RECORDS SUMMARY | 2024-02-29 21:32 | XMS_ITS | Encounter Summary ---
Author Organization [facility] Address [address] [place] [address] Care Team Providers Care Flight Attendant Ramp Name Role Phone David Blue MD Primary Care Provider [phone] Encounter Details Date Type Department Care Team (Late st Contact Info) Description 10/30/2003 Results Only [facility] - Maple conversion [address] [place] [address] Sergey Kraus, DO [address] [facility] [address] [place] [address] Social History Tobacco Use Types [...] ? JENNIFER IRVING ? Accession #: ? [id number] ? : ? 1960 (Age: 43) ??F ? Collect Date: ? 10/30/2003 ? Location: ? [facility] ? Receive Date: ? 10/30/2003 ? Provider: SERGEY RKAUS DO Copy to: DAVID BLUE MD ? [...] Description: ? Received in Hollande's fixative labelled Mfofett and bx antrum is a 0.3 x [...] specimen is entirely submitted as (C). ??(Dr. Haney-OFELIA)/[facility] End of Report [facility] 10/30/2003 10/30/2003 14: 43 EDT Sergey Kraus DO PATHOLOGY ORDER BENI [facility] [address] [place] [address] documented in this encounter Visit Diagnoses Not on filedocumented in this encounter Care Teams Flight Attendant Ramp Relationship Specialty Start Date End Date David Blue MD [address] [place] [address] PCP - General 07/15/09 documented as of this encounter
--- OUTSIDE RECORDS SUMMARY | 2024-02-29 21:32 | XMS_ITS | Encounter Summary ---
Author Organization [facility] Address [facility] [place] [address] Care Team Providers Care Farm Advisor Name Role Phone David Blue MD Primary Care Provider + [phone] Reason for Visit * Reason Comments GI Problem Encounter Details Date Type Department Care Team (Late st Contact Info) Description 03/15/2013 9:00 AM EST Office [place] [address] Noe Genao MD [facility] [place] [address] GERD (gastroesophageal reflux disease) (Primary Dx); Covington's [...] to have her Covington's management here at [facility]. We reviewed the issues of timing of [...] to be successful. 45 of 60 direct [id number] minutes spent in counseling, and the rest [...] PM EDT Office Visit Cardiology at [address] [address] Milagros Hernandez MD [facility] [place] [address] Scheduled Procedures Name Priority Associated Diagnoses Date/Ti me EGD, UPPER GI ENDOSCOPY (WRV U 2.09) Peptic stricture of esophagus documented as of this encounter Visit Diagnoses Diagnosis GERD (gastroesophageal reflux disease)- Primary Esophageal reflux Covington's esophagus documented in this encounter Care Teams Farm Advisor Relationship Specialty Start Date End Date David Blue MD [address] [place] [address] PCP - General 04/01/10 02/02/19 documented as of this encounter
--- OUTSIDE RECORDS SUMMARY | 2024-02-29 21:32 | XMS_ITS | Encounter Summary ---
Author Organization [facility] Address [address] [place] [address] Care Team Providers Care Fisheries Technical Officer Name Role Phone David Blue MD Primary Care Provider Encounter Details Date Type Department Care Team (Late st Contact Info) Description 04/28/2002 Results Only [facility] - Maple conversion [address] [place] [address] [place], [place] [id number] Social History Tobacco Use Types Packs/Day Years [...] ? JENNIFER IRVING ? Accession #: ? [id number] : ? 1960 (Age: 41) ??F ?Collect [...] Lachelle HUNTER PATHOLOGY ORDERABLES Performing Organization Address City/State/[facility] Co de Phone Number [facility] [address] [place] [address] documented in this encounter Visit Diagnoses Not on filedocumented in this encounter Care Teams Fisheries Technical Officer Relationship Specialty Start Date End Date David Blue MD [address] [place] [address] PCP - General 07/15/09 documented as of this encounter
--- OUTSIDE RECORDS SUMMARY | 2024-02-29 21:32 | XMS_ITS | Encounter Summary ---
Author Organization [facility] Address [facility] [place] [address] Care Team Providers Care Paint Department Supervisor Name Role Phone David Blue MD Primary Care Provider + [phone] Reason for Visit * Reason Comments Gastroesophageal Reflux Encounter Details Date Type Department Care Team (Late st Contact Info) Description 03/20/2014 1:00 PM EST Office Visit [place] [address] Baljinder Maharaj MD [facility] [place] [address] GERD (gastroesophageal reflux disease); Farrell's esophagus Discharge [...] visit was 30 minutes, all spent in bzrs-ex-hvgo discussion with the patient and her and son. documented in this encounter Plan of Treatment Upcoming Encounters Date Type Department Care Team (Late st Contact Info) Description 03/10/2024 4:00 PM EDT Office Visit Cardiology at [address] [address] Milagros Hernanedz MD [facility] [place] [address] Scheduled Procedures Name Priority Associated Diagnoses Date/Ti me EGD, UPPER GI ENDOSCOPY (WRV U 2.09) Peptic stricture of esophagus documented as of this encounter Visit Diagnoses Diagnosis GERD (gastroesophageal reflux disease) Esophageal reflux Farrell's esophagus documented in this encounter Care Teams Paint Department Supervisor Relationship Specialty Start Date End Date aDvid Blue MD [address] [place] [address] PCP - General 04/01/10 02/02/19 documented as of this encounter
--- OUTSIDE RECORDS SUMMARY | 2024-02-29 21:32 | XMS_ITS | Encounter Summary ---
Author Organization [facility] Address [address] [place] [address] Care Team Providers Care Home Service Director Name Role Phone David Blue MD Primary Care Provider [phone] Encounter Details Date Type Department Care Team (Late st Contact Info) Description 07/03/2023 Lab Requisition [facility] Pathology & Laboratory Medicine - [facility] [address] [place], [place] [address] Outr Resulting Lab, Provider Social History Tobacco [...] Antigen Detection Negative Negative 07/03/2023 21:42 EST [facility] Urine URINE / Unknown 07/02/2023 1 8:28 EST 07/03/2023 21:19 EST Provider Outr Resulting Lab MICROBIOLOGY - GENERAL ORDERABLES [facility] [address] [place] [address] documented in this encounter Visit Diagnoses Not on filedocumented in this encounter Care Teams Home Service Director Relationship Specialty Start Date End Date David Blue MD [address] [place] [address] PCP - General 07/15/09 documented as of this encounter
--- OUTSIDE RECORDS SUMMARY | 2024-02-29 21:32 | XMS_ITS | Encounter Summary ---
Author Organization [facility] Address [address] [place] [address] Care Team Providers Care Grill Associate Name Role Phone David Blue MD Primary Care Provider [phone] Encounter Details Date Type Department Care Team (Late st Contact Info) Description 07/11/2003 Results Only [facility] - Maple conversion [address] [place] [address] Rock Samson MD [address] [place], [place] [address] Social History Tobacco Use Types Packs/Day Years [...] ? JENNIFER IRVING ? Accession #: ? [id number] ? : ? 1960 (Age: 43) ??F [...] ?Appendix with no pathologic features. Comment: ? Nail Artist sections of (A) have been reviewed at the intradepartmental consultation conference, ??A discrepancy between the laterality of the fallopian tube as indicated on the requisition form and the gross impression has been discussed with Dr. Samson' s nursing staff, who indicated that the excised fallopian tube was from the right side. (Dr. Narayan)/[facility] Document reviewed and electronically signed by: MARIA [...] A1 ?Anterior cervix A2 ?Posterior cervix A3-A6 ?Nail Artist sections of the anterior intramural mass A7 ?Anterior endomyometrium A8 ?Full thickness endomyometrium A9 ?Nail Artist sections ovary and cyst A10 ?Nail Artist sections fallopian tube and ovary A11 ?Ectocervix Received in formalin labeled Moffett and appendix is a 10.0 cm long x 0.6 cm diameter appendix with a moderate amount of mesoappendix. ??The serosa is unremarkable. ??Serial sectioning reveals a wall thickness that varies from 0.1 to 0.3 cm. ??No fecaliths are identified. ??Four safety representative sections are submitted as (B), including the resection margin, en face, and the distal tip, bisected. ?? (Dr. Lopez)/[facility] End of Report [facility] 07/11/2003 07/11/2003 15: 14 EST Rock Samson MD PATHOLOGY ORDERABLES [facility] [address] [place] [address] documented in this encounter Visit Diagnoses Not on filedocumented in this encounter Care Teams Grill Associate Relationship Specialty Start Date End Date David Blue MD [address] [place] [address] PCP - General 07/15/09 documented as of this encounter
--- OUTSIDE RECORDS SUMMARY | 2024-02-29 21:32 | XMS_ITS | Encounter Summary ---
Author Organization [facility] Address [address] [place] [address] Care Team Providers Care Brownell Operator Name Role Phone Unavailable Primary Care Provider Unavailabl e Encounter Details Date Type Department Care Team (Late st Contact Info) Description 07/12/2009 Results Only [facility] Laboratory Services - [facility] ([facility] [address] [place], [place] [address] Sergey Kraus, [address] [facility] [address] [place], [place] [address] Social History Tobacco Use Types Packs/Day Years [...] ? IRVING, JENNIFER ? Accession #: ? [id number] ? : ? 1960 (Age: 49) ??F [...] and reactive ?? changes. ? Comment: ? Trucking Manager portions of this case were reviewed at the intradepartmental consultation conference. ??(Dr. Urena)/[facility] ? Document reviewed and electronically signed [...] submitted entirely as (A). ? Received in CredSimpletiffanie's fixative labelled Jennifer Irving and biopsy ? antrum is a 0.4 x 0.4 x 0.3 cm, kirby-pink soft tissue. ??The specimen is ? submitted entirely as (B). ? Received in [facility]'s fixative labelled Jennifer Irving and #3 biopsy ?? distal esophagus are three kirby-pink soft tissues, each averaging 0.3 x 0.3 x ?? 0.2 cm. ??The specimen is submitted entirely as (C). ? Received in [facility]'s fixative labelled Jennifer Irving and biopsy ? esophagus #4 are four kirby-pink soft tissues ranging in size from 0.2 x 0.2 x ?? 0.2 cm to 0.2 x 0.1 x 0.1 cm. ??The specimen is submitted entirely as (D). ? Received in Kinseye's fixative labelled Irving, Jennifer and biopsy ? proximal esophagus are two kirby-pink soft tissues ranging in size from 0.3 x 0.2 x 0.2 cm to 0.2 x 0.2 x 0.1 cm. ??The specimen is submitted entirely as (E). ? (Dr. Kearney)/[facility] ? End of Report ? [facility] 07/12/2009 07/12/2009 19: 11 EST Sergey Kraus DO PATHOLOGY ORDER BENI [facility] [address] [place] [address] documented in this encounter Visit Diagnoses Not on filedocumented in this encounter
--- OUTSIDE RECORDS SUMMARY | 2024-02-29 21:32 | XMS_ITS | Encounter Summary ---
Author Organization [facility] Address [facility] [place] [address] Care Team Providers Care Ballroom Dancer Name Role Phone David Blue MD Primary Care Provider [phone] Encounter Details Date Type Department Care Team (Late st Contact Info) Description 12/12/2012 Ancillary Procedure Radiology Library [place] [address] Ana Gillespie APRN [address] [place] [address] Social History Tobacco Use Types [...] PM EDT Office Visit Cardiology at [address] [address] Milagros Hernandez MD [facility] [place] [address] Scheduled Procedures Name Priority Associated Diagnoses Date/Ti me EGD, UPPER GI ENDOSCOPY (WRV U 2.09) Peptic stricture of esophagus documented as of this encounter Procedures Procedure Name Priority Date/Time Associated Diagnosis Comments FILM LIBRARY STORAGE ONLY MAMMO Routine 12/12/2012 12:00 AM EDT documented in this encounter Results * Film Library- Storage Only Mammo (12/12/2012 12:00 AM EDT) Narrative [facility] - 02/13/2019 8:42 AM EDT This exam is auto-finalizing. It's purpose is for storage only. Ana Gillespie APRN IMM[facility]ison FILM LIBRARY ORD ERABLES [place], [place] documented in this encounter Visit Diagnoses Not on filedocumented in this encounter Care Teams Ballroom Dancer Relationship Specialty Start Date End Date David Blue MD [address] [place] [address] PCP - General 04/01/10 02/02/19 documented as of this encounter
--- OUTSIDE RECORDS SUMMARY | 2024-02-29 21:32 | XMS_ITS | Encounter Summary ---
[place] [address] Care Team Providers Care Senior Scheduler Name Role Phone David Blue MD Primary Care Provider [phone] Reason for Visit * Reason Onset Date Comments Weight Management 04/19/2013 Encounter Details Date Type Department Care Team (Late st Contact Info) Description 04/19/2013 Telephone Pediatric & Adolescent Medicine at [address] [address] Guanakito Cronin MD [address] [place] [address] Weight Management Social History Tobacco Use Types [...] PM EDT Office Visit Cardiology at [address] [address] Milagros Hernandez MD [facility] [place] [address] Scheduled Procedures Name Priority Associated Diagnoses Date/Ti me EGD, UPPER GI ENDOSCOPY (WRV U 2.09) Peptic stricture of esophagus documented as of this encounter Visit Diagnoses Not on filedocumented in this encounter Care Teams Senior Scheduler Relationship Specialty Start Date End Date David Blue MD [address] [place] [address] PCP - General 04/01/10 02/02/19 documented as of this encounter
--- OUTSIDE RECORDS SUMMARY | 2024-02-29 21:32 | XMS_ITS | Encounter Summary ---
Author Organization [facility] Address [address] [place] [address] Care Team Providers Care Patient Care Nursing Assistant Name Role Phone David Blue MD Primary Care Provider [phone] Encounter Details Date Type Department Care Team (Late st Contact Info) Description 01/08/2006 Results Only [facility] - Maple conversion [address] [place] [address] Sergey Kraus, DO [address] [facility] ,[address] [place] [address] Social History Tobacco Use Types [...] ? JENNIFER IRVING ? Accession #: ? [id number] ? : ? 1960 (Age: 45) ??F [...] PATHOLOGY ORDER BENI [facility] [address] [place] [address] documented in this encounter Visit Diagnoses Not on filedocumented in this encounter Care Teams Patient Care Nursing Assistant Relationship Specialty Start Date End Date David Blue MD [address] [place] [address] PCP - General 07/15/09 documented as of this encounter
--- OUTSIDE RECORDS SUMMARY | 2024-02-29 21:32 | XMS_ITS | Encounter Summary ---
Author Organization [facility] [place] [address] Care Team Providers Care Cargo Supervisor Name Role Phone Ana Gillespie APRN Primary Care Provider [phone] Encounter Details Date Type Department Care Team (Late st Contact Info) Description 09/06/2009 Orders Only [place] [phone] Kathy Romero MD [facility] [place] [address] Social History Tobacco Use Types Packs/Day Years [...] Office Visit Cardiology at [address] [phone] Milagros Hernandez MD [facility] [place] [address] Scheduled Procedures Name Priority Associated Diagnoses Date/Ti me EGD, UPPER GI ENDOSCOPY (WRV U 2.09) Peptic stricture of esophagus documented as of this encounter Procedures Procedure Name Priority Date/Time Associated Diagnosis Comments SURGICAL PATHOLOGY REPORT Routine 09/06/2009 2:34 PM EDT documented in this encounter Results * Surgical Pathology Report (09/06/2009 2:34 PM EDT) Surgical Pathology Report [id number] ? Location: [facility] The signing pathologist has (i) examined [...] fibromembranous, and fibrofatty tissues. ??Sectioning reveals a 2.5-zb-yh-greates t- dimension, clear fluid-filled, smooth-lined cyst with surrounding rubbery, estrada-white tissue. Sections/Processi ng: ??A community relations representative section is submitted for frozen ?section. ??The frozen section residue is submitted in ?(A1). ??Additional community relations representative sections are ?submitted. (R4) ??aje/EJR Microscopic [...] MD PATHOLOGY/CYTOLOGY O RDERABLES Performing Organization Address City/State/[facility] Co de Phone Number DARCY [...] documented as of this encounter Care Teams Cargo Supervisor Relationship Specialty Start Date End Date Ana Gillespie APRN [address] [place] [address] PCP - General Family Medicine 02/03/19 documented as of this encounter
--- OUTSIDE RECORDS SUMMARY | 2024-02-29 21:32 | XMS_ITS | Encounter Summary ---
Author Organization [facility] Address [address] [place] [address] Care Team Providers Care Staff Appraiser Name Role Phone David Blue MD Primary Care Provider Encounter Details Date Type Department Care Team (Late st Contact Info) Description 03/06/2021 Lab Requisition [facility] Pathology & Laboratory Medicine - [facility] [address] [place], [place] [address] Outr Resulting Lab, Provider Social History Tobacco [...] Surface Ag Negative Negative 03/07/20 10:41 EDT [facility] Hep B Surface Ab, Quantitative <3.1 See Note mIU/mL 03/07/2021 10:41 [facility] Comment: Reference Range for Hep B Surface Ab, Quant: Positive: >= 10.0 mIU/mL Negative: ??< 10.0 mIU/mL Patient is presumed to not be immune to infection with Hepatitis B Virus. Hep B Surface Ab, Qualitative Negative See Note 03/07/2021 10:41 T [facility] Comment: Reference Range for Hep B Surface Ab, Qual: Unvaccinated: ??Negative Vaccinated: ??Positive Hepatitis B Core Ab, Total Negative Negative 03/07/2021 10:41 EDT [facility] Hep C Antibody Negative Negative 03/07/2021 10:41 EDT [facility] Blood VENOUS BLOOD / Unknown 03/06/2021 7:10 EDT 03/06/2021 16:38 EDT Provider Outr Resulting Lab CHEMISTRY & BLOOD GAS ORDERABLES [facility] [address] [place] [address] documented in this encounter Visit Diagnoses Not on filedocumented in this encounter Care Teams Staff Appraiser Relationship Specialty Start Date End Date David Blue MD [address] [place] [address] PCP - General 07/15/09 documented as of this encounter
--- OUTSIDE RECORDS SUMMARY | 2024-02-29 21:32 | XMS_ITS | Encounter Summary ---
[place] [address] Care Team Providers Care Piece Jobber Name Role Phone David Blue MD Primary Care Provider + [phone] Reason for Visit * Reason Onset Date Comments Other 03/21/2014 Motility Studies Canceled Encounter Details Date Type Department Care Team (Late st Contact Info) Description 03/21/2014 [place] [id number] Mya Garzon Other (Motility Studies [...] PM EDT Office Visit Cardiology at [address] [id number] Milagros Hernandez MD [facility] [address] Scheduled Procedures Name Priority Associated Diagnoses Date/Ti me EGD, UPPER GI ENDOSCOPY (WRV U 2.09) Peptic stricture of esophagus documented as of this encounter Visit Diagnoses Not on filedocumented in this encounter Care Teams Piece Jobber Relationship Specialty Start Date End Date David Blue MD [address] [place] [address] PCP - General 04/01/10 02/02/19 documented as of this encounter
[2024-02-29] MEDS: Metoprolol CR 50 MG TABCR 25 MG PO (23:30)
[2024-02-29] MEDS: Insulin Glargine 300 UNITS/3 ML PEN 10 UNITS SC (23:30)
[2024-02-29] MEDS: Normal Saline Flush 10 ML SYR IVP (23:30)
[2024-02-29] MEDS: Atorvastatin 40 MG TAB 80 MG PO (23:30)
[2024-03-01] VITALS (45 sets, daily range): BP systolic 62–148; BP diastolic 22–127; PULSE 60–201; RESP 10–22; TEMP 36–36.7; O2SAT 87–100; BMI 27.8
--- NOTE | 2024-03-01 | DI.RAD_ITS ---
Exam(s) XR PELVIS AP EXAM: XR PELVIS AP CLINICAL HISTORY: In PACU s/p R KYUNG. TECHNIQUE: 2D digital imaging was performed. COMPARISON: CR XR HIP RT COMPLETE AP PELVIS from 02/29/2024 XA XR HIP RT IN OR from 03/01/2024 FINDINGS: The patient is now status post right total hip replacement. The orthopedic hardware appears in good position. Postsurgical changes are seen in the soft tissues. Vascular calcifications are present. The patient had a prior left total hip replacement. IMPRESSION: Status post right total hip replacement. DATA REPOSITORY: RADIATION DOSE DELIVERED:
[2024-03-01] MEDS: Acetaminophen Solution 650 MG/20.3 ML CUP 1000 MG PO ×2 (03:12→11:09)
--- NOTE | 2024-03-01 05:35 | W.ORTHOCONSU ---
Date of service: 03/01/24 History of Present Illness History of Present Illness Chief Complaint: Right Hip Pain Narrative: Jennifer is a 63-year-old female who I know previously from her left hip. She was at home in her usual state of health when she tripped in the kitchen. She lost her balance and fell landing on her right side. She denies any head trauma. She did not lose consciousness. She was unable to get off the floor where she stayed down for about an hour or so as EMS was required to try to get her up. Given the trauma she was brought to the emergency department and diagnosed with a right femoral neck fracture. She reports pain with any attempted motion about the right hip. Prior to this she was doing well. She has been diagnosed with osteoporosis. She also had a similar fracture of her left hip in August 2022. This was fixed with 3 screws and ultimately failed requiring need for hardware removal and hip replacement performed in January 2023 with excellent results. She does have multiple chronic medical conditions although they seem to be stable. No new medical problems identified. She was admitted in June for pneumonia with some type II demand ischemia in the diagnose of Takotsubo cardiomyopathy. Echocardiogram at that time showed preserved ejection fracture and she has had no symptoms since discharge. Her last visit cardiology over the summer and [facility] recommended continued treatment with metoprolol and Entresto and increasing activity as tolerated. She denies any active chest pain. She denies any cough. She still has her G-tube due to esophageal stricture. Consults Consult date: 02/29/24 Requesting physician: Tamiko Wasserman Consult Reason Right Hip Fracture Assessment and Plan Assessment and plan (1) Displaced fracture of right femoral neck: Status: Acute Assessment and plan: Jennifer is a 63-year-old female with generalized poor bone. She did have a DEXA scan in December 2022 for my review of the literature with a diagnosis of osteoporosis. However, I do not see that she was started on any bone health medications. I do not even see vitamin D or calcium on her list of medications. She does have some absorptive issues given chronic G-tube. Nevertheless, I think this is going to be imperative to discuss with the hospice team and her primary care team. However, at this moment she has a femoral neck fracture of the right hip. This is almost identical to the fracture she had about a year and a half ago. While that fracture was relatively minimally displaced with only some valgus impaction and treated appropriately with 3 percutaneous screws, it failed quite quickly. She ultimately required hip replacement. There is some literature supporting moving forward with hip arthroplasty in the situations even with minimally displaced fractures due to the longevity of the implant and the likelihood of many fewer long-term complications and fewer surgeries. Given the history and the left side I would advocate for moving forward with hip replacement much like the left side. There is some mild arthritic change within the right hip. However, given her young age hip replacement would make the most sense to minimize any future concerns for repeat surgery. I had a long discussion in regards to surgical replacement of the hip. I reviewed the necessary time for rehabilitation following the procedure and expectations given the acuity of the fracture. Furthermore, I went over in detail the possible complications of hip replacement. These include but are not limited to bleeding, infection, pain, stiffness, weakness, damage to nerves (especially the lateral femoral cutaneous nerve), damage to vessels, damage to muscle and tendon, fracture, leg length inequality, wound healing complications, instability, dislocation, and blood clot. Questions were answered. After a review of the presented information and risks, Jennifer desired to proceed. There is awfully some concern about her tenuous health status although she has been doing quite well for a while now. She was diagnosed with Takotsubo's cardiomyopathy and this could be potentially exacerbated with surgery. However, there is no elective nature to the surgery. She also had complication of aspiration pneumonia after her initial left hip surgery which should not be as much of a problem now that she has her feeding tube and the esophageal stricture has been identified. All these are concerns but seem to be well-controlled and we will proceed with surgery later today. She would like to proceed with surgery here rather than anywhere else. Review of Systems All systems reviewed & are unremarkable except as noted in HPI and below PFSH All Active Problems (Updated 03/01/24 @ 05:41 by Gt Mills MD) Displaced fracture of right femoral neck (Acute) Closed fracture of right hip (Acute) Dislodged gastrostomy tube (Acute) Acute on chronic respiratory failure with hypoxia and hypercapnia (Acute) HFrEF (heart failure with reduced ejection fraction) (Chronic) Bronchiolitis (Acute) NSTEMI (non-ST elevated myocardial infarction) (Acute) Per pt. 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) Acute respiratory failure with hypoxia (Acute) COVID (Acute) Depression (Chronic) Bipolar 1 disorder (Chronic) Diabetes (Chronic) Cholelithiasis (Chronic) Ventral hernia (Acute) Leukocytosis (Acute) Pleural effusion (Acute) Black tarry stools (Acute) Chronic diarrhea (Acute) Farrell's esophagus (Chronic) Esophageal ulcer with bleeding (Acute) Erosive esophagitis (Acute) Farrell's 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 (Acute) Hyperplastic colon polyp (Acute ~06/10/21) Tubular adenoma (Acute ~06/10/21) Neuroleptic induced parkinsonism (Acute) Drug-induced parkinsonism (Acute) Anemia (Chronic) Status post hip surgery (Acute) H/O: pneumonia (Acute) Abnormal chest xray (Acute) Pre-op evaluation (Acute) Medical History Esophageal stricture Chronic systolic (congestive) heart failure Aspiration pneumonia Stress-induced cardiomyopathy acute onset managed [place] [facility] [place] pressors, EF 25%, has since recovered RH Acute cardiogenic pulmonary edema Acute metabolic encephalopathy Bilateral pneumonia Hypokalemia Closed fracture of neck of left femur s/p Percutaneous Screw Fixation 08/09/22 Constipation Diabetes mellitus type 2 in obese Chronic iron deficiency anemia ETOH abuse Poorly controlled diabetes mellitus Chronic pancreatitis due to acute alcohol intoxication Alcohol abuse Per pt. states she has never had an issues with any subtances History of pilonidal cyst Anxiety Surgical History History of total left hip arthroplasty (01/19/23) S/P laparoscopic procedure cyst removed from stomach per patient S/P surgical removal of pilonidal cyst History of esophagogastroduodenoscopy (EGD) (~06/10/21) History of colonoscopy with polypectomy (~06/10/21) History of hysterectomy History of tonsillectomy History of section Family History Father Hypertension Diabetes Heart disease Social History Smoking/Tobacco Use Status: Never Smoking risk assessment performed?: Yes Alcohol Intake: never Drug use: Never Substance use type: does not use Household members: spouse Housing: house Number of Children: 2 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 No acute distress. Alert and oriented x 3. Evaluation of the right lower extremity shows some shortening and external rotation. I think most the shortening actually comes from the slightly flexed and externally rotated position. There is pain with any attempted motion of the right hip. No overlying skin changes. No pain along the knee. She is able to actively dorsiflex and plantarflex the right ankle as well as extend and flex the great toe. She endorses full sensation over the deep and superficial peroneal nerve and tibial nerve. Palpable DP and PT pulse. Results Last Vital Signs Temp 36.5 C 03/01/24 02:57 Pulse 78 03/01/24 02:57 Resp 18 03/01/24 02:57 BP 147/81 H 03/01/24 02:57 Pulse Ox 98 03/01/24 02:57 Labs 03/01/24 06:55 03/01/24 06:55 Labs: Laboratory Results - last 24 hr 02/29/24 17:31 WBC 8.55 RBC 4.49 Hgb 13.2 Hct 40.8 MCV 91 MCH 29.4 MCHC 32.4 RDW 13.7 Plt Count 119 L MPV 11.5 H Immature Gran % 0.8 Neutrophils % 68.5 Lymphocytes % 19.8 Monocytes % 8.5 Eosinophils % 2.0 Basophils % 0.4 Nucleated RBC % 0.0 Absolute Neutrophils 5.86 Absolute Lymphocytes 1.69 Absolute Monocytes 0.73 Absolute Eosinophils 0.17 Absolute Basophils 0.03 PT 9.5 INR 0.9 Sodium 144 Potassium 3.7 Chloride 107 Carbon Dioxide 32.2 H Anion Gap 4.8 BUN 7 Creatinine 0.8 Est GFR (CKD-EPI 2020) 82.74 Glucose 131 H Calcium 9.0 Total Bilirubin 0.40 AST 15 ALT 19 Alkaline Phosphatase 108 Creatine Kinase 24 L Total Protein 6.1 L Albumin 2.7 L TSH 2.11 Imaging Imaging Studies: X-ray of the right hip was reviewed. This demonstrates an impacted subcapital femoral neck fracture. There seems to be some mild posterior displacement on the lateral view as well. No other suspicious lesions are identified.
[2024-03-01 07:16] LABS: HCT 41.7 % (36.0-46.0); HGB 13.6 g/dL (11.2-15.7); MCH 29.1 pg (27.0-33.0); MCHC 32.6 % (32.0-36.0); MCV 89 fL (80-95); MPV 11.6 fL (8.0-11.0); Platelet Count 102 10^3/uL (130-400); RBC 4.68 10^6/uL (3.93-5.22); RDW 13.3 % (11.7-14.6); RDW-SD 43.6 fL; WBC 5.64 10^3/uL (4.4-10.8)
[2024-03-01 07:24] LABS: Anion Gap 7.4 mmol/L (3-11); BUN 7 mg/dL (7-18); CO2 30.6 mmol/L (21.0-32.0); CREATININE 0.7 mg/dL (0.55-1.02); Calcium 9.2 mg/dL (8.5-10.1); Chloride 105 mmol/L (98-107); Estimated GFR 97.12 (mL/min/1.73m2); Glucose 81 mg/dL (74-106); Potassium 3.8 mmol/L (3.5-5.1); Sodium 143 mmol/L (136-145)
[2024-03-01] MEDS: buPROPion 100 MG TAB 300 MG PO (09:36)
[2024-03-01] MEDS: Empaglifozin 10 MG TAB PO (09:37)
[2024-03-01] MEDS: Folic Acid 1 MG TAB PO (09:37)
--- NOTE | 2024-03-01 10:20 | W.NUTCONSULT ---
Date of service: 03/01/24 Time of Service: 09:30 Nutritional Consult ASSESSMENT: Pt is 63yo female admitted for displacement fracture of R femoral neck after fall at home. Due for surgery today. Pt is currently NPO. PT has history of G-tube for all nutrition needs. She confirms that she usually take centrum enteral formula and states it is a 1.5kcal formula. She uses salem pump at home for 12 hour feedings at 70mL per hour. Home diabetes meds include 10mg empagliflozin daily and NPH insulin (humulin) - 20units at 11am and sliding scale at 3pm for correction. FPG this morming was in the 80's. managed with ss of aspart at meals and 10units HS of glargine while admitted. Pt weight history shows about a 5kg weight loss over the last year since my last note on prior admission. current estimated energy needs: 1668kcals and 79g protein, 1668mL fluid Pt's usual rate supples 1260kcals and the difference could explain some weight loss. NUTRITIONAL DIAGNOSIS: inadequate energy intake via enteral feeding related to inadequate feeding rate for 12 hours to meet her current energy needs, as evidenced by 5kg weight loss over the last year on the same rate. INTERVENTION: Recommend jevity 1.5 formula when patient is off npo status as this is most equivalent to her formula at home. Recommend goal rate adjustment to 92mL/hour for her 12 hour feeding cycle. This provides 1656kcals which is closer to her needs, as well as 71g protein and 845mL fluid. Start at 70mL/hour and increase 10mL q 4 hours until goal rate met while monitoring tolerance. MONITORING AND EVALUATION: Will monitor enteral feeding toleration, weight, labs Time Spent in Nutritional Counseling and Treatment: 10 min
[2024-03-01] MEDS: Normal Saline Flush 10 ML SYR IVP ×2 (12:13→20:52)
--- NOTE | 2024-03-01 13:36 | ANES.PREOP_ITS ---
General Info Date of Service Date Performed: 03/01/24 Height: 5 ft 1 in Weight: 66.678 kg Body Mass Index (BMI): 27.8 Surgical Procedure: Operation Date: 03/01/24 15:05 Proposed Procedure Side Surgeon p Hip Total Hip Anterior- [place]iment[place] Right Gt Mills MD Actual Procedure Side Surgeon p Hip Total Hip Anterior- Bimentum Right Gt Mills MD Pre-Op Diagnosis Post-Op Diagnosis Displaced fracture of right femoral neck Meds Allergies and Home Medications Allergies Allergy/AdvReac Type Severity Reaction Status Date / Time metformin AdvReac Unknown Diarrhea Verified 02/29/24 15:15 meperidine AdvReac gi upset Verified 02/29/24 15:15 Home Medication ?Medication ?Instructions ?Recorded sucralfate 1 gram tablet 1 g PO QID 08/08/22 folic acid 1 mg tablet 1 mg PO DAILY #0 tabs 08/10/22 atorvastatin 80 mg tablet 80 mg PO DAILY 11/18/22 empagliflozin 10 mg tablet 10 mg PO DAILY 11/18/22 (Jardiance) metoprolol succinate 50 mg 25 mg PO BID 11/18/22 tablet,extended release 24 hr quetiapine 100 mg tablet 200 mg PO HS 11/18/22 sacubitril 24 mg-valsartan 26 mg 1 tab feeding tube BID 11/18/22 tablet (Entresto) valproic acid (as sodium salt) 250 300 mg PO TID 11/18/22 mg/5 mL oral solution bupropion HCl 100 mg tablet 300 mg PO DAILY 12/16/22 protein See Rx Instructions PO .COMPLEX 12/16/22 acetaminophen 500 mg/15 mL oral 1,000 mg (30 mL) PO Q8H PRN #237 mL 01/19/23 liquid ferrous sulfate 300 mg (60 mg 300 mg feeding tube .QOD 01/31/23 iron)/5 mL oral liquid insulin NPH isoph U-100 human 100 See Rx Instructions .Route 02/28/23 unit/mL (3 mL) subcutaneous pen .COMPLEX #0 mL (Humulin N NPH U-100 Insulin KwikPen) ibuprofen 100 mg/5 mL oral 600 mg PO Q8H PRN 04/04/23 suspension nystatin 100,000 unit/gram topical 1 applic topical TID PRN 05/03/23 cream nystatin 100,000 unit/gram topical 1 applic topical TID PRN 05/03/23 powder pantoprazole 40 mg granules 40 mg G-tube DAILY 05/03/23 delayed-release for susp in packet insulin glargine 100 unit/mL (3 10 unit subcut QPM 05/04/23 mL) subcutaneous pen (Lantus Solostar U-100 Insulin) melatonin 3 mg tablet 9 mg feeding tube HS 05/04/23 ondansetron HCl 4 mg tablet 8 mg feeding tube Q8H PRN 05/08/23 aspirin 81 mg chewable tablet 81 mg feeding tube DAILY #30 tabs 07/05/23 guaifenesin 200 mg/5 mL oral liquid 200 mg (5 mL) feeding tube Q4H PRN 07/05/23 #118 mL duloxetine 20 mg capsule,delayed 20 mg PO HS 01/24/24 release (Cymbalta) duloxetine 60 mg capsule,delayed 60 mg PO DAILY 01/24/24 release (Cymbalta) Current Visit Medications: Current Medications Generic Name Dose Route Start Last Admin Trade Name Freq PRN Reason Stop Dose Admin Acetaminophen 1,000 mg 02/29/24 21:53 03/01/24 11:09 Acetaminophen Solution 650 Mg/20.3 Ml Cup PO 1,000 mg Q8H PRN PRN Administration Atorvastatin Calcium 80 mg 02/29/24 22:00 02/29/24 23:30 Atorvastatin 40 Mg Tab PO 80 mg QPM LAZARUS Administration Bupropion HCl 300 mg 03/01/24 08:30 03/01/24 09:36 Bupropion 100 Mg Tab PO 300 mg DAILY LAZARUS Administration Dextrose 0 gm 02/29/24 19:50 Glucose Oral Gel 15 Gm/37.5 Gm Tube PO DIRECTED PRN Dextrose/Water 0 gm 02/29/24 19:50 Dextrose 50%-Water 25 Gm/50 Ml Syr IVP DIRECTED PRN Duloxetine HCl 60 mg 03/01/24 08:30 03/01/24 12:05 Duloxetine 30 Mg Cap PO Not Given DAILY LAZARUS Duloxetine HCl 20 mg 03/01/24 20:00 Duloxetine 20 Mg Cap PO HS LAZARUS Empagliflozin 10 mg 03/01/24 08:30 03/01/24 09:37 Empaglifozin 10 Mg Tab PO 10 mg DAILY LAZARSU Administration Esomeprazole Magnesium 40 mg 03/02/24 07:30 Esomeprazole Oral Suspension 40 Mg Pkt JT DAILY@0730 LAZARUS Ferrous Sulfate 300 mg 03/01/24 08:30 03/01/24 13:26 Ferrous Sulfate 75 Mg/Ml 50 Ml Btl UD 300 mg Q48H LAZARUS Administration Folic Acid 1 mg 03/01/24 08:30 03/01/24 09:37 Folic Acid 1 Mg Tab PO 1 mg DAILY LAZARUS Administration Guaifenesin 200 mg 02/29/24 23:43 Guaifenesin 200 Mg/10 Ml Cup UD Q4H PRN PRN IV Miscellaneous Supplies 1 each 02/29/24 19:45 Iv Access IV DIRECTED [facility] Insulin Aspart 0 - 18 units 03/01/24 08:00 03/01/24 12:12 Insulin Aspart 300 Units/3 Ml Pen SC Not Given 0800,1200,1700 [facility] Protocol Insulin Glargine 10 units 02/29/24 22:00 02/29/24 23:30 Insulin Glargine 300 Units/3 Ml Pen SC 10 units HS LAZARUS Administration Metoprolol Succinate 25 mg 03/01/24 20:00 Metoprolol Cr 25 Mg Tabcr PO BID LAZARUS Nystatin 0 gm 02/29/24 19:39 Nystatin Cream 30 Gm Tube TP TID PRN PRN Ondansetron HCl 8 mg 02/29/24 23:46 Ondansetron O.D.T. 4 Mg Tabef UD Q8H PRN PRN Quetiapine Fumarate 200 mg 03/01/24 20:00 Quetiapine 100 Mg Tab PO HS LAZARUS Sacubitril/Valsartan 1 each 03/01/24 20:00 Sacubitril/Valsartan 24 Mg/26 Mg Tab JT BID LAZARUS Sodium Chloride 0 ml 02/29/24 19:32 Normal Saline Flush 10 Ml Syr IVP PRN PRN Sodium Chloride 0 ml 02/29/24 20:00 03/01/24 12:13 Normal Saline Flush 10 Ml Syr IVP 10 ml BID LAZARUS Administration Sodium Chloride 0 ml 02/29/24 19:32 Normal Saline 10 Ml Vial IJ DIRECTED PRN Valproic Acid 300 mg 03/01/24 08:30 03/01/24 13:28 Valproic Acid Oral Solution 250 Mg/5 Ml Cup PO 300 mg TID LAZARUS Administration PFSH Active Problems Active Problems: Problem Status Onset Code History of total right hip replacement Acute 03/01/24 Z96.641 Displaced fracture of right femoral neck Acute S72.001A Closed fracture of right hip Acute S72.001A Dislodged gastrostomy tube Acute T85.528A Acute on chronic respiratory failure with hypoxia and hypercapnia Acute J96.21, J96.22 HFrEF (heart failure with reduced ejection fraction) Chronic I50.20 Bronchiolitis Acute J21.9 NSTEMI (non-ST elevated myocardial infarction) Acute I21.4 COPD with acute exacerbation Acute J44.1 Myocardial injury Acute I5A Acute respiratory failure with hypoxia and hypercarbia Acute J96.01, J96.02 Pneumonitis Acute J98.4 Aspiration pneumonia Acute J69.0 Gastrostomy tube obstruction Acute K94.23 Lab test positive for detection of COVID-19 virus Acute U07.1 Acute on chronic respiratory failure with hypoxia Resolved J96.21 PEG (percutaneous endoscopic gastrostomy) status Chronic Z93.1 Insulin dependent type 2 diabetes mellitus Chronic E11.9, Z79.4 Acute respiratory failure with hypoxia Acute J96.01 COVID Acute U07.1 Depression Chronic F32.9 Bipolar 1 disorder Chronic F31.9 Diabetes Chronic E11.9 Atrial flutter Resolved I48.92 Cholelithiasis Chronic K80.20 Ventral hernia Acute K43.9 Leukocytosis Acute D72.829 Pleural effusion Acute J90 Black tarry stools Acute K92.1 Chronic diarrhea Acute K52.9 Farrell's esophagus Chronic K22.70 Esophageal ulcer with bleeding Acute K22.11 Erosive esophagitis Acute K22.10 Farrell's 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 Acute K22.70 Hyperplastic colon polyp Acute ~02 K63.5 Tubular adenoma Acute ~02/22 D36.9 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 Acute G21.19 Anemia Chronic D64.9 Status post hip surgery Acute Z98.890 H/O: pneumonia Acute Z87.01 Abnormal chest xray Acute R93.89 Pre-op evaluation Acute Z01.818 Medical History Medical History Esophageal stricture Chronic systolic (congestive) heart failure Aspiration pneumonia Stress-induced cardiomyopathy [place] [facility] [place] pressors, EF 25%, has since recovered RH Acute cardiogenic pulmonary edema Acute metabolic encephalopathy Bilateral pneumonia Hypokalemia Closed fracture of neck of left femur s/p Percutaneous Screw Fixation 08/09/22 Constipation Diabetes mellitus type 2 in obese Chronic iron deficiency anemia ETOH abuse Poorly controlled diabetes mellitus Chronic pancreatitis due to acute alcohol intoxication Alcohol abuse Per pt. states she has never had an issues with any subtances History of pilonidal cyst Anxiety Medical History Comments:: LH tremor. 08:[address] Purcell order Surgical History Surgical History History of total left hip arthroplasty (01/19/23) S/P laparoscopic procedure cyst removed from stomach per patient S/P surgical removal of pilonidal cyst History of esophagogastroduodenoscopy (EGD) (~06/10/21) History of colonoscopy with polypectomy (~06/10/21) History of hysterectomy History of tonsillectomy History of section Tobacco Smoking/Tobacco Use Status: Never Alcohol Alcohol Intake: never Substance Use Substance use: Never Substance use type: does not use Vital Signs and Lab Results Vital Signs Most Recent Vital Signs in EMR: Most Recent Vital Signs Temp Pulse Resp BP Pulse Ox 36.7 C 60 14 133/59 L 91 L 03/01/24 12:03 03/01/24 12:03 03/01/24 12:03 03/01/24 12:03 03/01/24 12:03 Point of Care Results Point of Care Results: Finger Stick Blood Glucose 102 03/01/24 12:12 Lab Results 03/01/24 06:55 03/01/24 06:55 Blood Type / Crossmatch: 2 No Data to Display Complete Blood Count: 2 White Blood Count 5.64 10^3/uL (4.4-10.8) 03/01/24 06:55 Red Blood Count 4.68 10^6/uL (3.93-5.22) 03/01/24 06:55 Hemoglobin 13.6 g/dL (11.2-15.7) 03/01/24 06:55 Hematocrit 41.7 % (36.0-46.0) 03/01/24 06:55 Platelet Count 102 10^3/uL (130-400) L 03/01/24 06:55 Complete Metabolic Panel: 2 Sodium 143 mmol/L (136-145) 03/01/24 06:55 Potassium 3.8 mmol/L (3.5-5.1) 03/01/24 06:55 Chloride 105 mmol/L (98-107) 03/01/24 06:55 Carbon Dioxide 30.6 mmol/L (21.0-32.0) 03/01/24 06:55 BUN 7 mg/dL (7-18) 03/01/24 06:55 Creatinine 0.7 mg/dL (0.55-1.02) 03/01/24 06:55 Est GFR (CKD-EPI 2020) 97.12 (mL/min/1.73m2) 03/01/24 06:55 Calcium 9.2 mg/dL (8.5-10.1) 03/01/24 06:55 Albumin 2.7 g/dL (3.4-5.0) L 02/29/24 17:31 Glucose 81 mg/dL (74-106) 03/01/24 06:55 Liver Function Panel: 2 Alanine Aminotransferase (ALT/SGPT) 19 U/L (14-59) 02/29/24 17: 31 Aspartate Amino Transf (AST/SGOT) 15 U/L (15-37) 02/29/24 17:31 Coagulation Panel: 2 INR International Normalized Ratio 0.9 (0.9-1.1) 02/29/24 17:3 1 Prothrombin Time 9.5 sec (9.1-11.1) 02/29/24 17:31 Cardiac Panel: 2 Creatine Kinase 24 U/L (26-192) L 02/29/24 Arterial Blood Gas: 2 No Data to Display Venous Blood Gas: 2 No Data to Display Pancreas Panel: 2 No Data to Display Thyroid Panel: 2 Thyroid Stimulating Hormone (TSH) 2.11 uIU/mL (0.36-3.74) 02/28 17:31 Infectious Disease: 2 No Data to Display Blood Cultures: 2 No Data to Display Toxicology Panel: 2 No Data to Display Imaging and Studies Imaging and Studies Study information below may be from another EMR and interpreted by another provider. Please see original notes in EMR for more complete details. EKG Summary: 02/29/24 Conclusion Sinus rhythm. 68 no stemi DATE/TIME OF SERVICE: 08/08/22 1153 : 1PERFORMING LOCATION: [place] APPROVED REPORT Exam: Resting ECG Reason for Exam: Fall Patient Location: E HR:111 bpm ECG Measurements Heart Rate 111 AXIS MO 176 P 73 QRSd 84 QRS 85 QT 346 T-64 QTc 471 Conclusion Sinus tachycardia...rate> 99 Echocardiogram Summary: 07/05/23 Conclusion Normal left ventricular wall thickness and chamber size. Ejection fraction is 55%. There is very mild apical hypokinesis Normal right ventricular size and function both atria are normal in size There is no structural or hemodynamically significant valvular disease Date of Exam: 03/04/21Sex: F Admission Date: 03/03/21 : 1960 Age: 60 APPROVED REPORT EXAM: Comprehensive 2D, Doppler, and color-flow Echocardiogram Patient Location: In-Patient Room/Bed: [id number] Electronic Publisher: Marilee Chanel RDCS (AE) Indications: New onset atrial flutter Other Information Study Quality: Adequate. Technically limited study due to inability to position patient, uncooperative patient, exam done bedside. Conclusion Normal left ventricular wall thickness and chamber size. Estimated ejection fraction is 60 to 65%. There are no segmental wall motion abnormalities Normal right ventricular size and systolic function Both atria are normal in size There are no structural or hemodynamically significant valvular abnormalities Normal estimated right ventricular systolic pressure 21 mmHg Anesthesia Assessment and Plan Anesthesia History Personal History: No History of Anesthesia Complications Family History: No Family History of Anesthesia Complications Exercise Tolerance Exercise Tolerance: Metabolic Equivalents<4 Pertinent Negatives Pertinent Negatives: No Major Cardiovascular Symptoms or Complaints and No Major Pulmonary Symptoms or Complaints Cardiac & Pulmonary Exam Cardiac Exam: Normal S1/S2 Heart Sounds Pulmonary Exam: Clear Bilateral Breath Sounds Implantable Cardiac Device Does patient have a Pacemaker or an ICD?: No Airway Exam Known Difficult Airway: No Mallampati Class: 2 Mouth Opening: Normal (> 3cm) Thyromental Distance: Greater than 3 cm Neck Range of Motion: Full ROM Neck Circumference: Normal Teeth Condition: Generalized Poor Dentition, Loose or Chipped and Advised tooth loss possible given current condition (indicate tooth) (most teeth are fragile) ASA Classification ASA Score: ASA 3 Emergency Case?: Yes NPO Status NPO Status: NPO Clears >2 hours, Solids >8 hours Anesthesia Plan Resuscitation Status: Full Code Anesthesia Technique: General Anesthesia Airway Planned: Endotracheal Tube Monitors Used: Standard Monitors Preoperative Comments:: RSI GETA, esophageal stricture and GERD, G tube in place
--- NOTE | 2024-03-01 13:44 | PGE_ITS ---
Date of Service Date of service: 03/01/24 Time of Service: 13:44 Assessment and Plan Assessment and plan (1) HFrEF (heart failure with reduced ejection fraction): Status: Chronic Assessment and plan: Stable at this time. Patient is cleared for surgery\ Discussed with Ortho, Dr. Mills (2) Bronchiolitis: Status: Acute Assessment and plan: Patient has a history of bronchiolitis does not appear to be active at this time. Patient is cleared for surgery (3) PEG (percutaneous endoscopic gastrostomy) status: Status: Chronic Assessment and plan: Patient cannot take foods by mouth. Just soup. She receives tube feedings through the G-tube. Appriciate nutrition consult, tube feeds order placed for post op when off NPO (4) Insulin dependent type 2 diabetes mellitus: Status: Chronic Assessment and plan: Continue glucose monitoring and insulin supplementation as needed Patient is cleared for surgery (5) Bipolar 1 disorder: Status: Chronic Assessment and plan: Stable at this time. Patient is cleared for surgery Subjective Subjective Interval history since last seen: Clinical course reviewed including notes, orders, labs, vitals, meds, imaging, and cultures. Care is discussed with primary nurse. Patient scheduled for R hip arthroplasty at 2:15. Has been made NPO Nutrition consulted for G tube feeds, recommend jevity 1.5 at target of 92cc/hr x 12 hours feeding cycle. Will start post op. Exam Narrative Exam Narrative: Patient is alert and oriented x 3 and in no acute distress. HEENT: Neck supple, MM pink and moist, conjunctiva non-injected, sclera non- icteric, Pupils equal and reactive to light symmetrically, no JVD, no A waves. No thyromegaly. No carotid bruit CHEST: Bilaterally symmetrical with inspiration and expiration. No use of accessory muscles of respiration. No nasal flaring. RESP: Clear to auscultation bilaterally, no rales, rhonchi or wheeze, no pleural friction rub, no post-tussive crackles or apical rales. COR: RRR soft 1.5/6 JOSE LUIS LUSB, normal S1, S2, no rub or gallop ABDOMEN: Soft, non tender diffusely, normally active bowel sounds diffusely, No hepatosplenomegaly, No abdominal bruit, no masses, no tenderness on deep abdominal palpation. G-tube site is present to the mid epigastrium and is well- secured. There is no surrounding erythema purulence or clinical evidence of infection. G/U: deferred Rectal: deferred MUSCULOSKELETAL: Bilaterally symmetrical, no muscle belly tenderness or mass. No right hip ecchymosis is noted. DERMIS: Skin warm and dry, no ulcers or rashes, EXTREMITIES: No cyanosis, clubbing or edema, no gross deformities of the large or small joints of the upper or lower extremities. I did not examine the right hip joint. NEUROLOGICAL: Cranial nerves intact II-XII without notable deficit, No peripheral neurosensory or motor deficits noted. LYMPH: No anterior or posterior cervical, no supraclavicular, No axillary, no epitrochlear or femoral lymphadenopathy. Objective Last Vital Signs Temp 36.7 C 03/01/24 12:03 Pulse 60 03/01/24 12:03 Resp 14 03/01/24 12:03 BP 133/59 L 03/01/24 12:03 Pulse Ox 91 L 03/01/24 12:03 Laboratory Results - last 24 hr 02/29/24 03/01/24 17:31 06:55 WBC 8.55 5.64 RBC 4.49 4.68 Hgb 13.2 13.6 Hct 40.8 41.7 MCV 91 89 MCH 29.4 29.1 MCHC 32.4 32.6 RDW 13.7 13.3 Plt Count 119 L 102 L MPV 11.5 H 11.6 H Immature Gran % 0.8 Neutrophils % 68.5 Lymphocytes % 19.8 Monocytes % 8.5 Eosinophils % 2.0 Basophils % 0.4 Nucleated RBC % 0.0 Absolute Neutrophils 5.86 Absolute Lymphocytes 1.69 Absolute Monocytes 0.73 Absolute Eosinophils 0.17 Absolute Basophils 0.03 PT 9.5 INR 0.9 Sodium 144 143 Potassium 3.7 3.8 Chloride 107 105 Carbon Dioxide 32.2 H 30.6 Anion Gap 4.8 7.4 BUN 7 7 Creatinine 0.8 0.7 Est GFR (CKD-EPI 2020) 82.74 97.12 Glucose 131 H 81 Calcium 9.0 9.2 Total Bilirubin 0.40 AST 15 ALT 19 Alkaline Phosphatase 108 Creatine Kinase 24 L Total Protein 6.1 L Albumin 2.7 L TSH 2.11 Time Spent with Patient Time Spent with Patient: 35-49 minutes Time was spent: preparing to see the patient(eg.review tests), obtaining and/or reviewing separately otained hiistory, ordering medications,tests, procedures, referring, communicating with other health critical care cns, indepentently interpreting results, counseling the patient and care coordination
--- NOTE | 2024-03-01 14:00 | NUR.NOTE ---
Nursing Note: Spoke with Bette in pharm in AM meeting who was working on figuring out pts celebrex orders as well as iron drops. Bette called this RN at 1155 and stated give pt 4mL of iron drops. Given per JUL.
--- NOTE | 2024-03-01 14:18 | RESPIRATORY ---
03/01/24 Pt states she wears 2L NC at night through [employer]. Pt states she has never had a sleep study or CPAP. Pt states her told her doctor that she snores during sleep and her doctor prescribed Oxygen.
--- NOTE | 2024-03-01 14:19 | NUR.NOTE ---
Nursing Note: Pt down in PACU at 1410.
[2024-03-01] MEDS: Lactated Ringers 1,000 ML 30 ML IV ×2 (14:31→20:21)
--- NOTE | 2024-03-01 14:31 | PHA.REVIEW2 ---
Pharmacy Admission Review Admission Clinical Review Admission Pharmacy Review: Displaced fracture of right femoral neck (Acute) Closed fracture of right hip (Acute) Bronchiolitis (Acute) metformin Adverse Reaction (Unknown, Verified 02/29/24 15:15) Diarrhea meperidine Adverse Reaction (Verified 02/29/24 15:15) gi upset Resuscitation Status Full Code Height 5 ft 1 in Weight 66.678 kg Comments Comments/Follow Ups: OR today - hip fracture Pharmacy Admission Review Renal Dosing Renal Dosing: BUN 7 mg/dL (7-18) 03/01/24 06:55 Creatinine 0.7 mg/dL (0.55-1.02) 03/01/24 06:55 Medications needing adjustments: Reviewed (CrCl 50.32 mL/min) List of meds needing interventions: Current medications are okay Anticoagulation Anticoagulation: Hgb 13.6 g/dL (11.2-15.7) 03/01/24 06:55 Hct 41.7 % (36.0-46.0) 03/01/24 06:55 Plt Count 102 10^3/uL (130-400) L 03/01/24 06:55 INR 0.9 (0.9-1.1) 02/29/24 17:31 Creatinine 0.7 mg/dL (0.55-1.02) 03/01/24 06:55 DVT Prophylaxis: Reviewed (SCDs/TEDs - OR today) Relevant Labs Relevant Labs: Sodium 143 mmol/L (136-145) 03/01/24 06:55 Potassium 3.8 mmol/L (3.5-5.1) 03/01/24 06:55 Chloride 105 mmol/L (98-107) 03/01/24 06:55 Electrolytes, C-Reactive P, ESR: Reviewed DM Control DM Control: Glucose 81 mg/dL (74-106) 03/01/24 06:55 Finger Stick Blood Glucose 102 1212 Finger Stick Blood Glucose 102 1208 Finger Stick Blood Glucose 102 1208 Finger Stick Blood Glucose 93 0940 Finger Stick Blood Glucose 93 0908 Finger Stick Blood Glucose 93 0908 DM Control: Reviewed Insulin Dosing, Diabetic Medication: Has order for SS insulin, glargine 10 units HS and Jardiance 10mg daily Cardiac Review Cardiac Review: Blood Pressure 133/59 1203 Blood Pressure 141/66 0744 Blood Pressure 147/81 0257 BP, HR, EF%: Reviewed (HR WNL, Ox 91) List meds needing interventions: Has order for metoprolol XL 25mg BID and Entresto BID QTc Review QTc: Reviewed (420 from 02/29/24) IV to PO Switch IV Medications: Reviewed Home Meds Home Med List reviewed: Intervened Relevent Home Meds Not ordered & why?: aspirin, ibuprofen (PRN), Humulin N (has order for SS insulin), melatonin (PRN), Entresto and sucralfate Spoke to provider regarding Entresto and sucralfate - order was then put in for Entresto but still no order for sucralfate. Changed pantoprazole order (packet) to esomeprazole packets (what we have on hand). Patient has NG tube. Called providers office to get med rec. Using list provided by PCP office: changed duloxetine to 60mg AM and 20mg HS. Changed quetiapine from 100mg HS to 200mg HS. Updated orders to reflect changes to home med list. Made provider and nursing aware of changes. Current Meds Current Medication Order Review: Intervened Comments: Changed metoprolol order from 50mg tablets to 25mg tablets for easier administration Comments Comments/Follow Ups: OR today - hip fracture
--- NOTE | 2024-03-01 16:23 | DI.RAD_ITS ---
Exam(s) XR HIP RT IN OR EXAM: XR HIP RT IN OR CLINICAL HISTORY: Displaced fracture of right femoral neck TECHNIQUE: 2D and realtime digital imaging was performed. CONTRAST MATERIAL: Refer to procedure report. COMPARISON: CR XR HIP RT COMPLETE AP PELVIS from 02/29/2024 FINDINGS: Fluoroscopy was provided for Dr. Mills during the performance of a right total hip arthroplasty. Please refer to the procedure report for complete details. Ka,r=5.92 mGy IMPRESSION: RADIATION DOSE DELIVERED: 0.0 0.0 0
--- NOTE | 2024-03-01 16:40 | INITIAL_ITS ---
Date of service: 03/01/24 Time of Service: 11:00 Care Management Initial Assmt Initial Assessment Reason for Hospitalization: right hip fracture Functional Status/Living Situation Patient Presentation: Jennifer was lying in bed when CM met with her. She looked uncomfortable, and her answered most of the questions. Jennifer fell in the kitchen yesterday, tripped and fell on her right hip, and fractured it. She broke her left hip in August 2022, and that was fixed with 3 screws and ultimately failed requiring need for hardware removal and hip replacement performed in January 2023 with excellent results. Decision was made to move forward with a total hip on the right, as the left fix was a failure. Jennifer's , Campos, told CM that he wanted to have Jennifer apply for medicaid. Jennifer already has medicaid. Then we need to apply for Medicare, Jennifer will be out of work for 6 months. The last hip was a debacle. CM in formed Melissa that Medicare is only for people >65y, or disabled, permanently. Campos is adamant that Jennifer go to SNF upon discharge. CM explained that referrals can not be sent until PT sees Jennifer. PT consult is ordered. Will send referrals to the [facility] tomorrow once the PT eval is complete. 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) Medications Medication Management: No Issues/Barriers identified Advance Directives Advance Directives: Do you have an Advance Directive: N 04/09/23 11:29 AD On File at [facility]: N 04/09/23 11:29 Date Asked 02/29/24 02/29/24 15:37 AD Date Reviewed COLST On File at [facility] COLST Date Scanned Code Status Resuscitation Status Full Code Insurance Coverage/Financial Issues Insurance: medicaid Care Team Visit Care Team Role Provider Type Ana Gillespie Primary Care Provider NURSE PRACTITIONER Gt Mills MD Other Providers [facility] STAFF PHYSICIAN Tamiko Wasserman MD Emergency Provider [facility] STAFF PHYSICIAN Aiden Bennett, DO Admit Provider [facility] STAFF PHYSICIAN Attending Provider Discharge Potential Discharge Needs: PT Evaluation, PCP F/U Appt and Surgical F/U Appt Anticipated Barriers to Discharge: None Identified Patient/Family Education Needs: Review discharge instructions, discuss Ask Me Three Plan: Anticipate that Jennifer will transfer to SNF upon discharge, where she will continue her rehabilitation. Transport will be dependent on disposition. CM will continue to follow. ON LICENSE OF [facility] All Active Problems (Updated 03/01/24 @ 05:41 by Gt Mills MD) History of total right hip replacement (Acute 03/01/24) Displaced fracture of right femoral neck (Acute) Closed fracture of right hip (Acute) Dislodged gastrostomy tube (Acute) Acute on chronic respiratory failure with hypoxia and hypercapnia (Acute) HFrEF (heart failure with reduced ejection fraction) (Chronic) Bronchiolitis (Acute) NSTEMI (non-ST elevated myocardial infarction) (Acute) Per pt. 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) Acute respiratory failure with hypoxia (Acute) COVID (Acute) Depression (Chronic) Bipolar 1 disorder (Chronic) Diabetes (Chronic) Cholelithiasis (Chronic) Ventral hernia (Acute) Leukocytosis (Acute) Pleural effusion (Acute) Black tarry stools (Acute) Chronic diarrhea (Acute) Farrell's esophagus (Chronic) Esophageal ulcer with bleeding (Acute) Erosive esophagitis (Acute) Farrell's 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 (Acute) Hyperplastic colon polyp (Acute ~06/10/21) Tubular adenoma (Acute ~06/10/21) Neuroleptic induced parkinsonism (Acute) Drug-induced parkinsonism (Acute) Anemia (Chronic) Status post hip surgery (Acute) H/O: pneumonia (Acute) Abnormal chest xray (Acute) Pre-op evaluation (Acute) Medical History Esophageal stricture Chronic systolic (congestive) heart failure Aspiration pneumonia Stress-induced cardiomyopathy [place] [facility] [place] press[place], EF 25%, has since recovered RH Acute cardiogenic pulmonary edema Acute metabolic encephalopathy Bilateral pneumonia Hypokalemia Closed fracture of neck of left femur s/p Percutaneous Screw Fixation 08/09/22 Constipation Diabetes mellitus type 2 in obese Chronic iron deficiency anemia ETOH abuse Poorly controlled diabetes mellitus Chronic pancreatitis due to acute alcohol intoxication Alcohol abuse Per pt. states she has never had an issues with any subtances History of pilonidal cyst Anxiety Surgical History History of total left hip arthroplasty (01/19/23) S/P laparoscopic procedure cyst removed from stomach per patient S/P surgical removal of pilonidal cyst History of esophagogastroduodenoscopy (EGD) (~06/10/21) History of colonoscopy with polypectomy (~06/10/21) History of hysterectomy History of tonsillectomy History of section Family History Father Hypertension Diabetes Heart disease Social History Smoking/Tobacco Use Status: Never Smoking risk assessment performed?: Yes Alcohol Intake: never Drug use: Never Substance use type: does not use Household members: spouse Housing: house Number of Children: 2 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 Readmission Within the Past 30 Days Yes or No: No SDOH(Care Management) Screening Will the Patient Participate in the Screening?: Yes Do you worry about having a steady place to live?: no In the past 12 months, have you had to go without electric, gas, oil or water in your home?: no Have you or anyone in your house had to go without enough food to eat?: no Has lack of transportation kept you from medical appointments or from doing things needed for daily living?: no Has anyone in your support network made you feel unsafe for any reason?: no
--- NOTE | 2024-03-01 16:50 | ROE_ITS ---
Date of service: 03/01/24 Time of Service: 15:00 Operative Note Operative Note DATE OF PROCEDURE: 03/01/24 PRE-OP DIAGNOSIS: Right Femoral Neck Fracture POST-OP DIAGNOSIS: same PROCEDURE: Right Anterior Total Hip Arthroplasty with Intraoperative Navigation SURGEON: Gt Mills TEAM PRIMARY CARE PHYSICIAN: Steven Fields ANESTHESIA TYPE: Spinal Refer to Anesthesia Record ESTIMATED BLOOD LOSS: 550 PATHOLOGY: none sent TOURNIQUET TIME: 0 COMPLICATIONS: None Patient was transported to: PACU Patient's condition: stable Implants: 1. Depuy Bimentum Dual Mobility Acetabular Component, 49mm 2. Depuy Bimentume Dual Mobility Liner, 75x73lp 3. Depuy Corail Short Neck Collared Femoral Stem, Size 13 4. Depuy Altrx Ceramic Femoral Head, Size 28x5mm Indications: I saw Jennifer in consultation after a fall onto her right hip. She had a subcapital femoral neck fracture with mild displacement. Given the history of her previous femoral neck fracture failure with screw treatment, I offered hip replacement. I discussed the technical details of a hip replacement. I exp lained the risks of the procedure to include, but not limited to, bleeding, infection, pain, stiffness, fracture, damage to nerves and vessels, damage to muscles and tendons, loosening, instability, leg length inequality, need for repeat procedure, blood clot and cardiopulmonary demise. Despite these risks, Jennifer elected to proceed. Findings: There was a highly comminuted fracture about the subcapital femoral neck. The bone throughout the whole neck region was very soft and malleable. The cancellous bone throughout was extremely soft with very little integrity. Procedure Description: Jennifer was greeted in the preoperative holding area where the correct side was identified and marked. The consent was reviewed with the patient and signed. All questions were answered. She was taken back to the operating room. A general anesthetic was then administered. The feet were wrapped with cast padding and Coban and then placed into the boot liners and then into the boots. Care was taken to protect the skin and make sure the heels were fully down and the boots were stable. The patient was then positioned onto the HANA table. Both legs were held in a neutral position. SCDs were applied. The patient was then slid down onto a peroneal post. Prophylactic antibiotics in the form of Cefazolin were administered. 1g of Tranxemic Acid was given intravenously within 30 minutes of incision. The right leg was then prepped with Chloraprep and draped in a standard fashion. A second prep with Chloraprep was performed prior to placement of a shower-curtain type drape with Iodine impregnated skin protection. A timeout to confirm correct identity, side and site, procedure, allergies, anesthesia, and medical concerns was performed. An obliquely oriented incision was made starting lateral to the ASIS and running distal over the Tensor Fascia Sabra (TFL) muscle belly toward the fibular head, approximately 10cm. The skin and soft tissue was dissected sharply, through Charleen?s fascia, and to the fascia of the TFL. With the fascia and superior border of the IT band identified, the fascia was incised with a new knife just above any perforators from the IT band. The TFL muscle belly was bluntly dissected away from the fascia and moved laterally. The fat between TFL and rectus was identified to ensure the dissection was not within the TFL. Blunt dissection created space between abductors and the capsule and retractor was placed over the lateral femoral neck. The fibers of the rectus femoris tendon were identified and these were freed from the anterior capsule. A second cobra retractor was placed around the medial femoral neck. The TFL was further retracted laterally to show the deep fascia. There was notable muscular atrophy in this region as well. Careful dissection through this layer identified three main crossing vessels of the lateral femoral circumflex. These were cauterized in multiple locations and then cut without any noticeable bleeding. The TFL was further released bluntly from the deep fascia to expose anterior hip capsule and fat The soft tissue orthopaedic retractor was then placed beneath the TFL and against sartorius and medial soft tissues to protect and retract the soft tissues. A T-capsulotomy was then performed starting at the superior lateral acetabulum and moving distally to the intertrochanteric ridge. These capsular flaps were tagged with a No. 1 Ethibond and elevated from within. The capsular flaps were released to the shoulder of the lateral neck and to the lesser trochanter to give excellent visualization of the proximal femur. There is a noted comminuted fracture about the subcapital region of the femoral neck. The comminution was laterally where there was buckling of the cortex which is quite soft and malleable. Then, a neck osteotomy was performed using an oscillating saw based on preoperative templates. This cut started in the shoulder and of the lateral neck and exited medially. The saw was at all times directed medially to avoid injury to the greater trochanter. Gross traction was applied to the leg and the osteotomy opened. The interval wedge of bone between the fracture and the osteotomy was removed with a rongeur. The femoral head was removed with a corkscrew, making sure to protect the TFL on its exit. Traction was released after head removal. This was measured on the back table to determine the starting reamer size. The bone in this region was quite soft. An anterior retractor was placed over the anterior wall between capsule and labrum and attached to the Gripper retraction system. The femur was rotated to 90 degrees and medial capsule was fully released until the lesser trochanter was palpable and visible; the femur was returned to 30 degrees. A posterior retractor was placed similarly between capsule and labrum. This provided excellent visualization. The contents of the cotyloid fossa were removed with electrocautery and the labrum was removed with a knife. Acetabular reaming began with a 43mm reamer. This first reaming was directed anterior to posterior and medial to get down to the true floor. This was inspected and reamed until the true floor was reached. The anterior retractor was then released and entry and exit was provided by traction on the capsular flaps. I then reamed sequentially up to a 49mm reamer where good fit was obtained. The larger reamers were oriented based on anatomical reference of the anterior and lateral pope to ensure proper abduction and anteversion. Positioning and size was confirmed with the fluoroscopy. A 49mm Depuy by [employer] dual mobility acetabular component was selected. The deep tissues were irrig ated. The acetabular component was then impacted into position. Unfortunately, her bone was very soft. It wanted to be in a position slightly more vertical than I would have liked. However, I felt taking the component out to re remore large the cup may be fraught with complication as well and therefore I excepted the cup in a slightly more vertical position. All this was done with fluoroscopic guidance. A portion of the gavin-articular cocktail was then injected around the acetabulum into the capsule and periosteum. This cocktail consisted of 123mg of Ropivacaine, 0.25mg of Epinephrine, 0.04mg of Clonidine, and 15mg of Ketorolac, diluted to 50cc. The leg was rotated to 120 degrees. Any remaining medial capsule was released until the lesser trochanter was easily palpable. A retractor was placed medially. The lateral capsule was further released into the shoulder to allow access to the greater trochanter. A Sandy retractor was placed over the greater trochanter which allowed the trochanter to flip in front of the capsule for excellent exposure. The leg was brought down into maximal extension and 20 degrees of adduction while ensuring there was no impingement on the acetabulum. Any remnant capsule within the trochanter was released. Piriformis and obturator externis were identified and protected. There was excellent access to the proximal femur. The lateral neck remnant was removed with a rongeur. Once again, the bone was very soft in this region. A blunt canal probe was used to identify the canal and trajectory for later broaching. A box osteotome initiated the broach course. A small curved rasp and a curved curette were used to work laterally. Broaching then began with a size 8 Corail broach. This was inserted manually around the trochanter and into the canal before mallet blows. The broach was seated to the neck cut level based on the neck cut and the preoperative template. Sequential broaching was continued with the Shopseense pneumatic broaching device until a tight fit was obtained with good rotational control of the femur. A trial short neck was inserted along with a +5 trial head. The leg was brought out of extension and adduction and then reduced with traction and internal rotation. The leg was stable anteriorly in a position of 30 degrees of extension and 90 degrees of external rotation. Fluoroscopy was used to ensure there was no fracture and the stem was seated well. Leg lengths were checked with an AP pelvis and pelvic reference points. Insightpool navigation system was used to confirm appropriate positioning and leg length and offset. Once content with the desired offset and leg lengths, the leg was brought back into extension, external rotation and adduction. The periosteum and surrounding tissue was injected with remaining portion of the gavin-articular cocktail. The proximal femur was irrigated as well as the deep tissues. The Depuy Corail short neck collared stem, size 13, was then manually inserted into the proximal femur making sure to control rotation. It was then malleted into position with light blows, giving breaks to allow bone expansion and decrease risk of fracture. Unfortunately, it did not go all the way down to the neck cut. Given the quality of her bone and stability obtained I did not try to force the implant to the cut edge. The selected Depuy Altrx Ceramic Head, size 28+5mm was then inserted into the by mentum 49 x 28 mm dual mobility liner. This was then placed onto the clean and dry trunnion and secured with impaction onto the tapered fit. The leg was brought back out of extension and adduction and reduced with traction and internal rotation. Stability was confirmed with no shuck at 90 degrees of external rotation and 30 degrees of extension. No impingement through range of motion arc. Final x-ray images were obtained with fluoroscopy to confirm adequate positioning and no intraoperative fracture. The deep tissues were thoroughly irrigated with Surgiphor, betadine solution. This was allowed to sit in the wound for 3 minutes before being thoroughly irrigated out with normal saline. The capsule was then reapproximated with the previously placed Ethibond sutures. The TFL fascia was finally closed with a No. 2 Stratafix, barbed suture. Deep tissues were then reapproximated with 0 Vicryl and a running 2-0 Vicryl. The skin was closed with a running 4-0 Monocryl in a subcuticular fashion. This was reinforced with skin glue. A Mepilex silver dressing was applied. At the end of the case, all counts were correct. Jennifer was transferred to the hospital bed without difficulty and suffering no apparent complication. Jennifer has a good prognosis. Physical therapy will start tomorrow and without restrictions, weight-bearing as tolerated. Aspirin 81mg BID will be used for DVT prophylaxis.
[2024-03-01] MEDS: Droperidol 5 MG/2 ML VIAL 0.625 MG IVP (17:08)
[2024-03-01] MEDS: ePHEDrine 25 MG/5 ML Syringe IVP (17:20)
--- NOTE | 2024-03-01 18:26 | W.ANESPOSTOP ---
Postoperative Evaluation Date, Time and Location Date Performed: 03/01/24 Time Performed: 18:02 Patient Location: PACU Vital Signs Most Recent Imported Vital Signs: Most Recent Vital Signs Temp Pulse Resp BP Pulse Ox 36.1 C L 83 17 98/65 L 97 03/01/24 18:20 03/01/24 18:20 03/01/24 18:20 03/01/24 18:20 03/01/24 18:20 Pain Score Most Recent Pain Score: Most Recent Pain Score Pain Level [Right Hip] 02/29/24 17:59 Pain Level 9 03/01/24 18:20 Assessment Mental Status: Awake (Alert & Oriented to Patient Baseline) Airway and Respiratory Function: Abnormal Respiratory exam (See explanation) and Patient has been admitted and is receiving care as an inpatient Cardiovascular Function: Hemodynamically Stable Hydration Status: Adequately Hydrated Nausea & Vomiting: No Nausea or Vomiting Pain: Pain is Moderate or Severe Postoperative Pain Management: Pain being addressed with medication and Ongoing pain, patient will be managed as an inpatient Peripheral Nerve Block: Patient did not receive a nerve block
[2024-03-01] MEDS: HYDROmorphone 1 MG/ML SYR 0.5 MG IVP (18:49)
[2024-03-01] MEDS: Ondansetron O.D.T. 4 MG TABEF 8 MG UD (19:12)
--- NOTE | 2024-03-01 19:41 | NUR.NOTE ---
Nursing Note: Pt arrived back to unit from PACU at 1807. A&Ox4, VSS on 2LNC, medicated for pain and nausea per JUL.
[2024-03-01] MEDS: ceFAZolin 1 GM/50 ML BAG IVPB (20:21)
[2024-03-01 20:41] LABS: HCT 41.2 % (36.0-46.0); HGB 13.3 g/dL (11.2-15.7)
[2024-03-01] MEDS: Ketorolac 15 MG/ML VIAL IVP (20:50)
[2024-03-01] MEDS: DULoxetine 20 MG CAP PO (20:51)
[2024-03-01] MEDS: QUEtiapine 100 MG TAB 200 MG PO (20:51)
[2024-03-01] MEDS: Sacubitril/Valsartan 24 mg/26 mg TAB 1 EACH JT (20:52)
[2024-03-01] MEDS: Atorvastatin 40 MG TAB 80 MG PO (20:52)
[2024-03-01] MEDS: Metoprolol CR 25 MG TABCR PO (20:52)
--- NOTE | 2024-03-01 22:30 | RT.EKG_ITS ---
APPROVED REPORT Exam: Resting ECG Reason for Exam: hypotension Patient Location: I HR:98 bpm ECG Measurements Heart Rate 98 AXIS MT 137 P 45 QRSd 89 QRS 76 QT 372 T 58 QTc 476 Conclusion Sinus rhythm...normal P axis, V-rate 50- 99 Low voltage, extremity leads...all extremity leads <0.5mV
[2024-03-01] MEDS: Normal Saline 250 ML 500 ML IV (23:00)
[2024-03-01 23:02] LABS: HCT 34.6 % (36.0-46.0); HGB 11.2 g/dL (11.2-15.7)
--- NOTE | 2024-03-01 23:25 | W.EVENT ---
Date of service: 03/01/24 Time of Service: 23:25 Event Note: Called for hypotension. Case reviewed. Patient is postop (today) repair hip fracture. On arrival to floor BPs 90s-100s/sys. Patient has since received Dliaudid, Toprol XL 25 (crushed, per G-tube) and 200 Seroquel. Approx one hour after latter she became somnolent and BP of 60/sys reported. On my arrival BP 68/palp, pulse 90, RR 20, O2 sat 99. Patient placed in Trendelenburg, 500 cc NS bolus. Following bolus BP 78/palp. EKG without acute changes, similar to prior. HCT 34 (41 two hours earlier). No bleeding per surgical wound and small hematoma noted. A/P: I think the hypotension is multifactorial, due to blood loss and multiple medication effects, including opiates, beta graciela, and probably the Seroquel as well. As to the dropping hematocrit the presumption would be a post op matter. Reviewed with Ortho, they feel this is likely equilibration and not active bleeding. Will transfuse one unit preemptively and continue IVF. Will also check troponin series though I don't see any signs of ischemia on EKG. Time Spent with Patient Time spent in critical care(minutes): 60 Time Spent Included: Coordination of care, Chart review, Documenting critically ill care, Time at immediate bedside and Discussing critically ill care with other medical staff
[2024-03-01] MEDS: Normal Saline 500 ML IV (23:40)
[2024-03-02] VITALS (130 sets, daily range): BP systolic 61–144; BP diastolic 34–97; PULSE 66–120; RESP 13–29; TEMP 36–36.5; O2SAT 83–100
--- NOTE | 2024-03-02 | DI.CT_ITS ---
Exam(s) CT LOWER EXTREMITY RT WO EXAM: CT LOWER EXTREMITY RT WO CLINICAL HISTORY: s/p hip repair, with dropping hematocrit, ? bleed. TECHNIQUE: Imaging Protocol: Axial computed tomography images with coronal and sagittal reformatted images were created and reviewed. CONTRAST MATERIAL: Intravenous: None COMPARISON: CT CT LOWER EXTREMITY LT WO from 08/08/2022 FINDINGS: OSSEOUS: Right hip prosthesis now evident. Appears intact. Postop gas in soft tissues. No abscess. No obvious hematoma in the field of view. No fractures. There is a right side fat only containing spigelian hernia noted IMPRESSION: Postop gas in subcutaneous tissues related to recent right hip prosthesis placement. No evidence of abscess nor hematoma. RADIATION DOSE DELIVERED: 298.91mGy.cm Total DLP DATA REPOSITORY: All CT scans at this facility are submitted to the National Radiology Data Registry (NRDR) Dose Index Registry (DIR) with the [employer] ([employer]). RADIATION OPTIMIZATION: All CT scans at this facility use at least one of these dose optimization te chniques: automated exposure control; mA and/or kV adjustment per patient size (includes targeted exa ms where dose is matched to clinical indication); or iterative reconstruction.
[2024-03-02 00:30] LABS: Troponin I 5 ng/L (<or=51)
--- NOTE | 2024-03-02 01:05 | NUR.NOTE ---
Called and updated on pt status. Verbal consent for blood transfusion obtained via telephone. Provider also consulted by this RN HS to transfer pt to ICU for higher level of care. 's questions asked and answered. He reported only to call if emergency tonight, otherwise he will be in to see her in the morning. I relayed to MS CC and ICU staff. Pt reported she takes all meds crushed in feeding tube, as it was reported by nursing staff there was some confusion if this was done at home. reported all meds via tube. did not have any further questions and advised to call if he would like an update over night:
[2024-03-02 01:37] LABS: HCT 29.7 % (36.0-46.0); HGB 9.4 g/dL (11.2-15.7)
[2024-03-02 01:56] LABS: Troponin I 6 ng/L (<or=51)
[2024-03-02] MEDS: Lactated Ringers 1,000 ML 125 ML IV (02:32)
[2024-03-02] MEDS: Norepinephrine in D5W 8 MG/250 ML BAG 9.375 MG IV (02:39)
[2024-03-02] MEDS: Hydrocortisone SOD SUC. 100 MG VIAL IVP (02:43)
[2024-03-02] MEDS: ceFAZolin 1 GM/50 ML BAG IVPB ×2 (04:19→13:02)
--- NOTE | 2024-03-02 04:50 | DI.VRAD_ITS ---
PROCEDURE INFORMATION: Exam: CT Right Lower Extremity, Hip Exam date and time: 03/02/2024 3:23 AM Age: 63 years old Clinical indication: Other: S/P hip repair, with dropping hematocrit, ? bleed TECHNIQUE: Imaging protocol: CT of the right lower extremity without contrast was performed. Exam focused on the hip. COMPARISON: CR XR HIP RT COMPLETE AP PELVIS 02/29/2024 4:56 PM FINDINGS: Bones/joints: Right hip prosthesis. Multifocal gas in the subcutaneous tissue of the anterior right hip/proximal right thigh in the setting of status post recent hip repair. . No abscess or hematoma. Right hip prosthesis. No evidence of hardware complication. No acute fracture. Soft tissues: Increased visualized fat containing inferior right spigelian hernia. No associated inflammation. IMPRESSION: Multifocal gas in the subcutaneous tissue of the anterior right hip/proximal right thigh in the setting of status post recent hip repair. . No abscess or hematoma. Dictated and Authenticated by: Tu Gastelum MD. Ordering:FRITZ Melton MD
--- NOTE | 2024-03-02 06:09 | NUR.NOTE ---
Nursing Note: At 1956 patient awakened, trying to get out of bed. Patient is very confused, hyperventilating, vital signs were taken, notified charge nurse. OB/GYN DOCTOR and other nurse came in the room. Patient heart rate increased to 139 bpm, bp 98/66 , O2 98% on 2L nasal via canula. Called respiratory therapies,and arrived in patient's room. After ~ 5 minutes patient started to relax, vital sign HR 105, BP 98/65, 20 RR, Temp 36, 98% 2L nasal cannula. Patient went back to sleep. Will continue monitor. At 22:30 Patient BP decreased. Patient becomes hypotensive, BP 88/57, heart rate unchanged, 15 RR, O2 98%. Notified charge nurse. Patient BP continue to decrease 60's systolic with other vital signs unchanged. Notified provider. Provider assessing the patient. Provider order bolus of NS 1000 ml, ECG, and CBC. Patient on tendrelenburg position, bolus infused, check vital sign, BP slighly impove 82/54 manually taken. After a few minutes BP went back down again to 60s systolic. Provider transferred patient to ICU.
[2024-03-02 06:15] LABS: HCT 39.5 % (36.0-46.0); HGB 12.9 g/dL (11.2-15.7); MCH 29.5 pg (27.0-33.0); MCHC 32.7 % (32.0-36.0); MCV 90 fL (80-95); MPV 11.7 fL (8.0-11.0); RBC 4.37 10^6/uL (3.93-5.22); RDW 13.5 % (11.7-14.6); RDW-SD 44.9 fL; WBC 8.81 10^3/uL (4.4-10.8)
[2024-03-02 06:32] LABS: Anion Gap 8.7 mmol/L (3-11); BUN 11 mg/dL (7-18); CO2 26.3 mmol/L (21.0-32.0); CREATININE 0.9 mg/dL (0.55-1.02); Calcium 8.6 mg/dL (8.5-10.1); Chloride 106 mmol/L (98-107); Estimated GFR 71.83 (mL/min/1.73m2); Glucose 262 mg/dL (74-106); Potassium 4.2 mmol/L (3.5-5.1); Sodium 141 mmol/L (136-145)
[2024-03-02 06:40] LABS: Troponin I 20 ng/L (<or=51)
[2024-03-02 06:43] LABS: Platelet Count 81 10^3/uL (130-400)
[2024-03-02 06:59] LABS: Vitamin D 25 Total 13.5 ng/mL (30-100)
[2024-03-02] MEDS: Ketorolac 15 MG/ML VIAL IVP ×3 (07:54→19:41)
[2024-03-02] MEDS: Normal Saline Flush 10 ML SYR IVP ×3 (07:54→21:19)
--- NOTE | 2024-03-02 07:57 | PGE_ITS ---
Date of Service Date of service: 03/02/24 Time of Service: 07:50 Assessment and Plan Assessment and plan (1) History of total right hip replacement: Status: Acute Assessment and plan: Jennifer is post a day #1 status post right hip replacement. This case was complicated simply by some more than usual blood loss although not terribly worrisome. There was no concern for significant vascular involvement. Her bone quality was quite poor and I do recommend considering a bone health workup including vitamin D studies and consideration of bone health agents due to the fracture as well as the appearance of the bone intraoperatively. CT scan of the right hip was performed due to the blood loss and her hypotensive event. This did not show any signs of a hematoma collected in the deep tissues. The components appear to be in good position without sign of fracture. Continue with recovery, weightbearing as tolerated with assistive devices. No positioning restrictions. (2) Displaced fracture of right femoral neck: Status: Acute Assessment and plan: Status post right total hip (3) Acute blood loss anemia: Status: Acute Assessment and plan: Interestingly, my fixation was her blood loss from the surgery would result in lower hemoglobin checked at 8:00 last night. However, recurrent checks did show a drop. My suspicion is that this was all equal liberating from the surgery itself. This also corresponded to her obtaining various medications and is likely this combination of events which pushed her over the edge and not being able to maintain her blood pressure appropriately. She has been fluid responsive. Her hemoglobin is stable and has risen up to 12.[address] scan does not show any sign of hematoma or active bleeding. Her exam is benign. I will continue to follow her very closely but I would not withhold nonnarcotic medications such as ketorolac for the risk of bleeding as this may be an excellent source of pain control without the concerns for somnolence or other adverse effects. She does have significant upper GI history though with an esophageal stricture and gets most of her feeding through the PEG tube. Therefore, lavage and aspiration of the PEG tube may provide some insight if there is any bleeding in the upper GI tract. Surgical consultation could be considered if there is concern about this. Continue to follow hemoglobin at this point. Subjective Subjective Interval history since last seen: Jennifer is a 63-year-old female who is status post dual mobility hip replacement in the right side for a comminuted subcapital femoral neck fracture. The surgery itself went without significant complication yesterday. Her bone quality was quite poor and there was some bleeding with estimated blood loss of 550 cc. However, she recovered well from the anesthesia, was extubated, and transferred back to her hospital room. She was doing relatively well until she had an episode of hypotension last night. Dr. Ortiz, hospitalist, was managing her but did call me in regards to her situation. She had an acute drop in her hemoglobin hematocrit. A timed hemoglobin performed at 2027 was 13.3, this then dropped to 11.2 at 2254, which was the time of the hypotensive event. Recheck was 9.4 at 135 this morning. She did receive 1 unit of packed red blood cells. Recheck of hemoglobin this morning was 12.9. She has been transferred to the ICU for closer monitoring. She is received in minimal amount of norepinephrine. She is responded well to fluids and has been able to maintain her blood pressure with this minimal support. She reports pain about the right hip down towards her right leg to the knee. No numbness or tingling. She denies any chest pain or abdominal pain. Exam Narrative Exam Narrative: Sleeping in the hospital bed. She does awaken and answers questions appropriately. Evaluation of the right lower extremity shows dressing which is clean dry and intact. There is some mild ecchymosis seen about the proximal right thigh. Thigh is soft. Passively, she tolerates internal and external rotation without significant discomfort. As she tries to activate the muscles about the right thigh she does report an increase in pain. Intact sensation to the femoral and sciatic nerve distributions. Foot is warm and well-perfused. No significant distal edema. No significant abdominal pain on palpation. Objective Last Vital Signs Temp 36.2 C L 03/02/24 03:45 Pulse 78 03/02/24 03:45 Resp 15 03/02/24 03:45 BP 99/59 L 03/02/24 03:45 Pulse Ox 96 03/02/24 03:45 Laboratory Results - last 24 hr 03/01/24 03/01/24 03/01/24 20:28 22:40 22:55 WBC RBC Hgb 13.3 Cancelled 11.2 D Hct 41.2 Cancelled 34.6 L MCV MCH MCHC RDW Plt Count MPV Sodium Potassium Chloride Carbon Dioxide Anion Gap BUN Creatinine Est GFR (CKD-EPI 2020) Glucose Calcium Troponin I 25-OH Vitamin D Total ABO/Rh Antibody Screen Crossmatch 03/01/24 03/02/24 03/02/24 23:50 00:00 01:35 WBC RBC Hgb 9.4 L Hct 29.7 L MCV MCH MCHC RDW Plt Count MPV Sodium Potassium Chloride Carbon Dioxide Anion Gap BUN Creatinine Est GFR (CKD-EPI 2020) Glucose Calcium Troponin I 5 6 25-OH Vitamin D Total ABO/Rh O Positive Antibody Screen NEGATIVE Crossmatch See Detail 03/02/24 06:00 WBC 8.81 RBC 4.37 Hgb 12.9 D Hct 39.5 MCV 90 MCH 29.5 MCHC 32.7 RDW 13.5 Plt Count 81 L MPV 11.7 H Sodium 141 Potassium 4.2 Chloride 106 Carbon Dioxide 26.3 Anion Gap 8.7 BUN 11 Creatinine 0.9 Est GFR (CKD-EPI 2020) 71.83 Glucose 262 H Calcium 8.6 Troponin I 20 25-OH Vitamin D Total 13.5 L ABO/Rh Antibody Screen Crossmatch Time Spent with Patient Time Spent with Patient: 35-49 minutes Time was spent: preparing to see the patient(eg.review tests), obtaining and/or reviewing separately otained hiistory, referring, communicating with other health care management specialist, indepentently interpreting results and counseling the patient
--- NOTE | 2024-03-02 08:18 | PT.INNT ---
PT Notes Visit Reasons: Hip Fracture Patient very drowsy and fatigued, needing rest at this time. Nurse Wilda suggested holding on PT eval to allow patient to rest enough. Will come back after lunch to do another attempt at evaluation.
[2024-03-02] MEDS: Empaglifozin 10 MG TAB PO (08:21)
[2024-03-02] MEDS: DULoxetine 30 MG CAP 60 MG PO (08:21)
[2024-03-02] MEDS: Folic Acid 1 MG TAB PO (08:21)
[2024-03-02] MEDS: Insulin Aspart 300 UNITS/3 ML PEN SC ×3 (08:29→18:10)
[2024-03-02] MEDS: buPROPion 100 MG TAB 300 MG PO (08:29)
--- NOTE | 2024-03-02 08:37 | PDOC.CMPRO ---
Date of service: 03/02/24 Time of Service: 08:37 Care Management Progress Note Progress Note Text Progress Note Text: Jennifer was transferred to ICU overnight due to a drop in her hemoglobin and more specifically her BP after her surgery. She was started on levophed and is s/p 1 unit of PRBC with improvement in her labs and her VS. Jennifer was sitting up in the chair when CM met with her today. She had been sleeping at a previous attempt to visit. Jennifer was pleasant, and easily engaged with CM. She stated that she is not having as much pain as she expected. She has been OOB with PT already today, and CM was told by PT that Jennifer transferred well to the chair and was also able to take a couple of steps. Jennifer still feels that she needs SNF, because she doesn't want her to have to care for her. CM will send referrals to the [facility] and [facility] once documentation of her PT evaluation is completed. Discharge Potential Discharge Needs: PT Evaluation (will need PT evaluation in order to place SNF referrals, and also for Jennifer's rehabilitation) and Surgical F/U Appt Anticipated Barriers to Discharge: None Identified Patient/Family Education Needs: Review discharge instructions, discuss Ask Me Three Transportation: Other Plan: Anticipate that Jennifer will be transferred to SNF when she is medically cleared. Referrals will be sent to local SNFs once PT evaluation is complete. CM will continue to follow and update the family and plan as needed. SDOH(Care Management) Screening Will the Patient Participate in the Screening?: Yes Do you worry about having a steady place to live?: no In the past 12 months, have you had to go without electric, gas, oil or water in your home?: no Have you or anyone in your house had to go without enough food to eat?: no Has lack of transportation kept you from medical appointments or from doing things needed for daily living?: no Has anyone in your support network made you feel unsafe for any reason?: no
--- NOTE | 2024-03-02 11:16 | PT.INIE ---
PT Notes Visit Reasons: Hip Fracture Physical Therapy Inpatient Initial Evaluation Date: 03/02/2024 Referring Doctor: Gt Mills MD PT Orders: PT CONSULT: S/P Ortho surgery. R KYUNG for hip fracture Precautions: Fall. Standard. WBAT on R LE with AD. Patient Profile/Admitting Diagnosis: Jennifer is a 63-year-old female who sustained a comminuted, displaced subcapital fracture on the R side and is S/P R anterior total hip arthroplasty on postoperative day 1. She needed to transfer to the ICU lasy night due to a hypotensive event. She got a pack of RBCs that has helped with hemodynamic stability. Patient is also being managed for HFrEF, IDDM, and bipolar disorder. PMHX: All Active Problems (Updated 02/29/24 @ 21:23 by Tamiko Wasserman MD) Closed fracture of right hip (Acute) Dislodged gastrostomy tube (Acute) Acute on chronic respiratory failure with hypoxia and hypercapnia (Acute) HFrEF (heart failure with reduced ejection fraction) (Chronic) Bronchiolitis (Acute) NSTEMI (non-ST elevated myocardial infarction) (Acute) Per pt. 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) Acute respiratory failure with hypoxia (Acute) COVID (Acute) Depression (Chronic) Bipolar 1 disorder (Chronic) Diabetes (Chronic) Cholelithiasis (Chronic) Ventral hernia (Acute) Leukocytosis (Acute) Pleural effusion (Acute) Black tarry stools (Acute) Chronic diarrhea (Acute) Farrell's esophagus (Chronic) Esophageal ulcer with bleeding (Acute) Erosive esophagitis (Acute) Farrell's 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 (Acute) Hyperplastic colon polyp (Acute ~06/10/21) Tubular adenoma (Acute ~06/10/21) Neuroleptic induced parkinsonism (Acute) Drug-induced parkinsonism (Acute) Anemia (Chronic) Status post hip surgery (Acute) H/O: pneumonia (Acute) Abnormal chest xray (Acute) Pre-op evaluation (Acute) Medical History Esophageal stricture Chronic systolic (congestive) heart failure Aspiration pneumonia Stress-induced cardiomyopathy [place] [facility] [place], EF 25%, has since recovered RH Acute cardiogenic pulmonary edema Acute metabolic encephalopathy Bilateral pneumonia Hypokalemia Closed fracture of neck of left femur s/p Percutaneous Screw Fixation 08/09/22 Constipation Diabetes mellitus type 2 in obese Chronic iron deficiency anemia ETOH abuse Poorly controlled diabetes mellitus Chronic pancreatitis due to acute alcohol intoxication Alcohol abuse Per pt. states she has never had an issues with any subtances History of pilonidal cyst Anxiety Surgical History History of total left hip arthroplasty (01/19/23) S/P laparoscopic procedure cyst removed from stomach per patient S/P surgical removal of pilonidal cyst History of esophagogastroduodenoscopy (EGD) (~06/10/21) History of colonoscopy with polypectomy (~06/10/21) History of hysterectomy History of tonsillectomy History of section Social History/Home Situation: Lives with in a private home with 2-3 steps to enter with rail on the R going up. to for 25 years. Independent with use of FWW indoors and outdoors. Equipment Owned/DME: FWW Subjective: Patient complained of fatigue and pain in her R hip with weight bearing. Denied chest pain, headache, and lightheadedness throughout short in-room ambulation. Objective: General Observation: Supine in bed. PEG tube in place. PEG tube, telemetry monitoring and barba catheter all in place. Mental Status: Somewhat sleepy but and oriented as to person, place, time, and purpose. Able to pay attention, focus, and respond appropriately. Pain: 6/10 in the R hip while walking Vital Signs: BP went up to 117/93 at end of session, oxygen saturation stayed above 88% throughout session ROM: Left Lower Extremity: Hip flexion WFL. Hip abduction WFL. Knee flexion WFL. Ankle dorsiflexion WFL. Ankle plantarflexion WFL. Right Lower Extremity: Hip flexion lacks the last 25% of AROM due to discomfort and pot op status. Hip abduction WFL. Knee flexion 20 to 90 degrees. Knee extension -20 degrees. Ankle dorsiflexion WFL. Ankle plantarflexion WFL. Strength: Left Lower Extremity: Hip flexors 4/5. Hip abductors 4/5. Knee flexors 5/5. Knee extensors 4/5. Ankle dorsiflexors 4/5. Ankle plantarflexors 5/5. Right Lower Extremity: Hip flexors 4-/5. Hip abductors 4-/5. Knee flexors 4/5. Knee extensors 3-/5. Ankle dorsiflexors 4-/5. Ankle plantarflexors 4-/5. Bed Mobility/Transfers: Moderate cueing provided for use of B hands as needed for support, movement sequence, AD management, and posture to reduce fall risk and minimize pain report Supine to sit minimal assist with cues to use hands to support L LE as needed Sit to stand contact guard assist using B hands for support with minimal cues given for hand placement and trunk positioning for safety Stand to sit contact guard assist using B hands for support with minimal cues given for hand placement and trunk positioning for safety Gait: Instructed patient with short in-room ambulation of 6 steps from bedside to bedside recliner requiring contact guard assist. Christine decreased. No LOB nor increase in pain report. Moderate verbal cueing given for movement sequence, AD management, limb advancement, and posture Stairs: Deferred Balance: Static Sitting: Normal Dynamic Sitting: Normal Static Standing: Fair Dynamic Standing: Fair Special Tests: Mobility Limitations Standardized Measure [facility] AM-PAC 6 clicks Basic Mobility Inpatient Short Form: Raw Score: 18 CMS Score: 47% deficit Informed Consent/Education: Patient was instructed in purpose of PT consult and plan of care. Agreeable to proceed with established PT POC to achieve personal goals. ASSESSMENT: Patient requires use of a front wheeled walker to maximize independence and reduce fall risk. Patient presents with clinical signs and symptoms consistent with current/admitting diagnoses that have resulted to mobility limitations, gait instability, generalized weakness, and overall ADL decline as demonstrated by the following impairment level findings: 1. Decreased strength to R hip major muscle groups 2. Impaired sitting/standing balance 3. Impaired activity tolerance 4. Limitation of joint range of motion in R hip Impairments are contributing to the following functional limitations: 1. Decline in bed mobility skills 2. Decline in transfer skills 3. Difficulty with ambulation without assistive device and physical assistance 4. Increased completion time for mobility ADL performance 5. Increased risk for falls 6. Difficulty with managing steps alone safely Patient is assessed as a [id number] moderate complexity based on the following: History: 63-year-old female with past medical history as indicated above Examination: Demonstrable impairment in strength, balance, and mobility level with underlying impairments and functional limitations as exhibited above as well as deficit score of 47% utilizing the [facility] Mobility Inpatient Short Form Presentation: Evolving Decision Makin moderate complexity Goals: Goals X1 week 1. Supine-Sit independent 2. Sit-Supine independent 3. Sit-Stand independent 4. Stand-Sit independent 5. Bed-Chair independent 6. Chair-Bed independent 7. Independent gait on level surface with use of FWW for at least 300 feet without report of pain nor dyspnea 8. Independent stair negotiation while holding onto bilateral rails for at least 10 steps without report of pain nor dyspnea 9. Independent with home exercise program 10. Good static and dynamic standing balance/tolerance Plan of Care/Treatment Plan: Patient will highly benefit from skilled physical therapy services including functional mobility training, bed mobility/transfer training, gait and balance training, therapeutic exercises, therapeutic activity, caregiver/staff/family education and training 1x/day, 7 days/week x 1 week. Plan of care has been reviewed with the STRAIGHTENER providing the service under Physical Therapy direction. Initiate Physical Therapy intervention for strengthening, bed mobility, transfers, gait, stairs, balance training, use of assistive device. DISCHARGE RECOMMENDATIONS: [] Home with no services [] [] Home with services [] Home with outpatient PT [] [] SNF for continued rehabilitation [] [] [facility] [] [] SNF versus LTC based on ability to participate and progress [] [X] Short-term rehab vs. PT TREATMENT CODE/TIME: 19162 x 20 minutes for 1 unit, 39611 x 24 2 minutes for 2 units (11:16-12:00). Thank you for the opportunity to participate in the care of this patient. Sangita Luz PT, DPT, CLT [facility] [place], [place]
--- NOTE | 2024-03-02 13:18 | PGE_ITS ---
Date of Service Date of service: 03/02/24 Time of Service: 13:18 Assessment and Plan Assessment and plan (1) Hypotension: Status: Acute Assessment and plan: -Overnight patient had been found to be hypotensive (please see event notes from overnight 03/01?03/02) -She was given IV fluids, she was given IV fluids, and hemoglobin was checked and it did show an initial drop in hemoglobin but transiently improved -Hypotension was likely due to a combination of estimated blood loss of about 500 cc during hip surgery, lingering effects of anesthesia postoperatively, and administration of the patient's metoprolol and Entresto -She did require Levophed to be initiated overnight -As of writing this note at 13:24 patient is documented to be on 1mcg both mean arterial pressure documented at 88 -Continue to wean as tolerated -Currently holding home antihypertensives, will restart once blood pressures are appropriate (2) HFrEF (heart failure with reduced ejection fraction): Status: Chronic Assessment and plan: -Without acute exacerbation (3) Bronchiolitis: Status: Acute Assessment and plan: -Patient has a history of bronchiolitis does not appear to be active at this time. (4) PEG (percutaneous endoscopic gastrostomy) status: Status: Chronic Assessment and plan: -Patient cannot take foods by mouth. Just soup. -She receives tube feedings through the G-tube. -Appriciate nutrition consult, tube feeds order placed for post op when off NPO (5) Insulin dependent type 2 diabetes mellitus: Status: Chronic Assessment and plan: -Continue glucose monitoring and insulin supplementation as needed (6) Bipolar 1 disorder: Status: Chronic Assessment and plan: -Stable at this time. Subjective Subjective Interval history since last seen: Patient states that she is feeling better this morning and is look forward to working with physical therapy. Otherwise she has no other complaints or concerns at this time. Exam Narrative Exam Narrative: Fatigued but well-appearing older female sitting up in the chair no acute distress, ANO x 4, heart regular rate rhythm, lungs clear to auscultation bilaterally, abdomen soft, nontender, nondistended Objective Last Vital Signs Temp 97.7 F 03/02/24 08:00 Pulse 80 03/02/24 12:01 Resp 17 03/02/24 12:01 BP 135/66 03/02/24 12:01 Pulse Ox 95 03/02/24 12:01 Laboratory Results - last 24 hr 10/23/24 10/23/24 10/23/24 20:28 22:40 22:55 WBC RBC Hgb 13.3 Cancelled 11.2 D Hct 41.2 Cancelled 34.6 L MCV MCH MCHC RDW Plt Count MPV Sodium Potassium Chloride Carbon Dioxide Anion Gap BUN Creatinine Est GFR (CKD-EPI 2020) Glucose Calcium Troponin I 25-OH Vitamin D Total ABO/Rh Antibody Screen Crossmatch 03/01/24 03/02/24 03/02/24 23:50 00:00 01:35 WBC RBC Hgb 9.4 L Hct 29.7 L MCV MCH MCHC RDW Plt Count MPV Sodium Potassium Chloride Carbon Dioxide Anion Gap BUN Creatinine Est GFR (CKD-EPI 2020) Glucose Calcium Troponin I 5 6 25-OH Vitamin D Total ABO/Rh O Positive Antibody Screen NEGATIVE Crossmatch See Detail 03/02/24 06:00 WBC 8.81 RBC 4.37 Hgb 12.9 D Hct 39.5 MCV 90 MCH 29.5 MCHC 32.7 RDW 13.5 Plt Count 81 L MPV 11.7 H Sodium 141 Potassium 4.2 Chloride 106 Carbon Dioxide 26.3 Anion Gap 8.7 BUN 11 Creatinine 0.9 Est GFR (CKD-EPI 2020) 71.83 Glucose 262 H Calcium 8.6 Troponin I 20 25-OH Vitamin D Total 13.5 L ABO/Rh Antibody Screen Crossmatch Time Spent with Patient Time Spent with Patient: >50 minutes Time was spent: preparing to see the patient(eg.review tests), obtaining and/or reviewing separately otained hiistory, ordering medications,tests, procedures, referring, communicating with other health restorative care technician, indepentently interpreting results, counseling the patient and care coordination
--- NOTE | 2024-03-02 14:53 | PT.INTREAT ---
PT Notes Visit Reasons: Hip Fracture Physical Therapy Inpatient Treatment Note Date: 03/02/2024 Precautions: Fall. Standard. WBAT on R LE with AD. Subjective: Patient complained of fatigue and pain in her R hip with weight bearing. Denied chest pain, headache, and lightheadedness throughout short in-room ambulation. Objective: General Observation: Supine in bed. PEG tube in place. PEG tube, telemetry monitoring and barba catheter all in place. Mental Status: Somewhat sleepy but and oriented as to person, place, time, and purpose. Able to pay attention, focus, and respond appropriately. Pain: 6/10 in the R hip while walking Vital Signs: WNL throughout session Bed Mobility/Transfers: Moderate cueing provided for use of B hands as needed for support, movement sequence, AD management, and posture to reduce fall risk and minimize pain report Supine to sit minimal assist with cues to use hands to support L LE as needed Sit to stand contact guard assist using B hands for support with minimal cues given for hand placement and trunk positioning for safety Stand to sit contact guard assist using B hands for support with minimal cues given for hand placement and trunk positioning for safety Gait: Instructed patient with level surface ambulation of 30 feet + 10 feet requiring contact guard assist using FWW. Christine decreased. No LOB nor increase in pain report. Moderate verbal cueing given for movement sequence, AD management, limb advancement, and posture. Wheelchair follow and IV pole management provided by PT. Patient's pain level was manageable at the start but crept up and resulted to patient wanting to sit down, apologetic. Stairs: Deferred Balance: Static Sitting: Normal Dynamic Sitting: Normal Static Standing: Fair Dynamic Standing: Fair ASSESSMENT: Ambulation distance improved this afternoon with oxygen saturation and BP well WNL. Patient continues to report pain with weight bearing but to a lesser extent when at rest. requires continued training to progress mobility level, strength, and AD mangement while minimizing pain level. Plan of Care/Treatment Plan: Patient will highly benefit from skilled physical therapy services including functional mobility training, bed mobility/transfer training, gait and balance training, therapeutic exercises, therapeutic activity, caregiver/staff/family education and training 1x/day, 7 days/week x 1 week. Plan of care has been reviewed with the FRUIT THINNER MACHINE OPERATOR providing the service under Physical Therapy direction. Initiate Physical Therapy intervention for strengthening, bed mobility, transfers, gait, stairs, balance training, use of assistive device. DISCHARGE RECOMMENDATIONS: [] Home with no services [] [] Home with services [] Home with outpatient PT [] [] SNF for continued rehabilitation [] [] [facility] [] [] SNF versus LTC based on ability to participate and progress [] [X] Short-term rehab vs. HH PT TREATMENT CODE/TIME: 11569 x 40 minutes for 3 units (14:53-14:33).
[2024-03-02] MEDS: oxyCODONE 5 MG/5 ML CUP JT (15:29)
[2024-03-02] MEDS: QUEtiapine 100 MG TAB 200 MG PO (21:18)
[2024-03-02] MEDS: DULoxetine 20 MG CAP PO (21:18)
[2024-03-02] MEDS: Atorvastatin 40 MG TAB 80 MG PO (21:18)
[2024-03-02] MEDS: Insulin Glargine 300 UNITS/3 ML PEN 10 UNITS SC (21:58)
--- NOTE | 2024-03-02 23:15 | RT.EKG_ITS ---
APPROVED REPORT Exam: Resting ECG Reason for Exam: hypotension, h/o CHF Patient Location: I HR:88 bpm ECG Measurements Heart Rate 88 AXIS UT 140 P 67 QRSd 96 QRS 72 QT 488 T 83 QTc 591 Conclusion Sinus rhythm...normal P axis, V-rate 50- 99 Low voltage, extremity and precordial leads...extremity<0.5mV, precordial<1.0mV Nonspecific T abnormalities, lateral leads...T <-0.10mV, I aVL V5 V6 Prolonged QT interval...QTc >500mS
--- NOTE | 2024-03-02 23:53 | W.EVENT ---
Date of service: 03/02/24 Time of Service: 23:53 Event Note: Called to ICU for patient with low blood pressure with MAPs in 50s, were around 70 in 9 o'clock hour. Noted on routine vital signs. Patient denies chest pain, dizziness, but is more somnolent. States she feels like she needs to have a BM (was feeling constipated and took laxatives). Exam benign with heart RRR, no m/g/r, lungs CTAB, abdomen soft, NT/ND. Extremities warm, no edema. Norepinephrine was still ordered, restarted, MAPS increasing in high 60s. patient remains somnolent but arousable and oriented. Repeat EKG not c/w ischemia, simliar to previous. She does not appear to be in CHF. Consider repeating echo in AM. No signs of sepsis/infection. Continue to monitor. BG 99, down from mid 200s, giving some tube feed now to avoid hypoglycemia repeat CBC/BMP stat This may have been vagal related to feeling urgency to have BM, but will continue close monitoring. Time Spent with Patient Time spent in critical care(minutes): 40 Time Spent Included: Chart review, Documenting critically ill care, Time at immediate bedside and Discussing critically ill care with other medical staff
[2024-03-03] VITALS (80 sets, daily range): BP systolic 79–164; BP diastolic 40–85; PULSE 67–107; RESP 15–24; TEMP 36.7–37.3; O2SAT 84–99
[2024-03-03 01:17] LABS: Abs Immature Grans 0.15 10^3/uL (0.0-0.06); Absolute Basophil Count 0.06 10^3/uL (0.0-0.2); Absolute Eosinophil Count 0.08 10^3/uL (0.0-0.7); Absolute Lymphocyte Count 2.05 10^3/uL (1.2-3.4); Absolute Monocyte Count 1.04 10^3/uL (0.1-0.8); Absolute Neutrophil Count 6.36 10^3/uL (1.2-6.7); Basophils % 0.6 %; Eosinophils % 0.8 %; HCT 39.5 % (36.0-46.0); HGB 13.2 g/dL (11.2-15.7); Immature Grans % 1.5 %; MCH 29.3 pg (27.0-33.0); MCHC 33.4 % (32.0-36.0); MCV 88 fL (80-95); MPV 11.4 fL (8.0-11.0); Monocytes % 10.7 %; Neutrophils % 65.4 %; Nucleated RBC 0.3 % (0.0-0.3); Platelet Count 83 10^3/uL (130-400); RBC 4.51 10^6/uL (3.93-5.22); RDW 14.2 % (11.7-14.6); RDW-SD 45.2 fL; WBC 9.74 10^3/uL (4.4-10.8)
[2024-03-03 01:18] LABS: Anion Gap 6.9 mmol/L (3-11); BUN 21 mg/dL (7-18); CO2 29.1 mmol/L (21.0-32.0); CREATININE 0.8 mg/dL (0.55-1.02); Calcium 9.3 mg/dL (8.5-10.1); Chloride 109 mmol/L (98-107); Estimated GFR 82.74 (mL/min/1.73m2); Glucose 116 mg/dL (74-106); Potassium 4.4 mmol/L (3.5-5.1); Sodium 145 mmol/L (136-145)
[2024-03-03] MEDS: Ketorolac 15 MG/ML VIAL IVP ×4 (02:15→19:59)
[2024-03-03] MEDS: Lactated Ringers 500 ML IV (06:54)
[2024-03-03 07:06] LABS: HCT 37.2 % (36.0-46.0); HGB 12.4 g/dL (11.2-15.7); MCH 29.2 pg (27.0-33.0); MCHC 33.3 % (32.0-36.0); MCV 88 fL (80-95); MPV 11.7 fL (8.0-11.0); RBC 4.24 10^6/uL (3.93-5.22); RDW 14.3 % (11.7-14.6); RDW-SD 45.6 fL; WBC 12.29 10^3/uL (4.4-10.8)
[2024-03-03 07:26] LABS: BUN 21 mg/dL (7-18); CREATININE 0.8 mg/dL (0.55-1.02); Calcium 9.3 mg/dL (8.5-10.1); Chloride 107 mmol/L (98-107); Estimated GFR 82.74 (mL/min/1.73m2); Glucose 96 mg/dL (74-106); Sodium 146 mmol/L (136-145)
[2024-03-03 07:36] LABS: Platelet Count 90 10^3/uL (130-400)
--- NOTE | 2024-03-03 07:45 | PT.INNT ---
PT Notes Visit Reasons: Hip Fracture Patient was seen to check if she can do a short session and sit on the chair to get ready for the day. Nurse Roland stated that patient had another hypotensive episode last night. Chart showed MAP reduction to 50 mmHg during the vent and patient was sleeping when Pt came in early this mornig. Nurse Roland recommended checking in on patient later today to see appropriateness for PT.
[2024-03-03] MEDS: buPROPion 100 MG TAB 300 MG PO (09:23)
[2024-03-03] MEDS: Cholecalciferol (Vitamin D3) 1,000 UNIT TAB 1000 UNITS JT (09:23)
[2024-03-03] MEDS: DULoxetine 30 MG CAP 60 MG PO (09:23)
[2024-03-03] MEDS: Normal Saline Flush 10 ML SYR IVP ×2 (09:25→21:25)
[2024-03-03] MEDS: Folic Acid 1 MG TAB PO (09:28)
[2024-03-03] MEDS: Insulin Aspart 300 UNITS/3 ML PEN SC ×2 (12:31→16:59)
--- NOTE | 2024-03-03 13:52 | PDOC.CMPRO ---
Date of service: 03/03/24 Time of Service: 13:53 Care Management Progress Note Progress Note Text Progress Note Text: Jennifer has been sleeping most of the day today. RUPAL tried to meet with Jennifer 3 times today, and she was sleeping each time. She had another hypotensive event last night and norepinepherine was restarted. Referrals were sent to [facility] and the [facility] this morning. RUPAL was not able to relay this information to Jennifer, so her , Campos, was called. CM left a with that information. Discharge Potential Discharge Needs: PCP F/U Appt and Surgical F/U Appt Anticipated Barriers to Discharge: None Identified Patient/Family Education Needs: Review discharge instructions, discuss Ask Me Three and Other Transportation: Other (dependent on disposition) Plan: Anticipate that Jennifer will be transferred to SNF when she is medically cleared. CM will continue to follow and update the family and the plan as needed. SDOH(Care Management) Screening Will the Patient Participate in the Screening?: Yes Do you worry about having a steady place to live?: no In the past 12 months, have you had to go without electric, gas, oil or water in your home?: no Have you or anyone in your house had to go without enough food to eat?: no Has lack of transportation kept you from medical appointments or from doing things needed for daily living?: no Has anyone in your support network made you feel unsafe for any reason?: no
--- NOTE | 2024-03-03 14:52 | PTTR_ITS ---
PT Notes Visit Reasons: Hip Fracture Physical Therapy Inpatient Treatment Note Date: 03/03/2024 Precautions: Fall. Standard. WBAT on R LE with AD. Subjective: Patient complained of fatigue and pain in her R hip with weight bearing. Denied chest pain, headache, and lightheadedness throughout short in-room ambulation. Objective: General Observation: Supine in bed. PEG tube in place. PEG tube, telemetry monitoring and barba catheter all in place. Mental Status: Somewhat sleepy but and oriented as to person, place, time, and purpose. Able to pay attention, focus, and respond appropriately. Pain: 4-5/10 in the R hip while walking Vital Signs: WNL throughout session with oxygen supplementation via NC at 1 L/min Bed Mobility/Transfers: Moderate cueing provided for use of B hands as needed for support, movement sequence, AD management, and posture to reduce fall risk and minimize pain report Supine to sit minimal assist with cues to use hands to support L LE as needed Sit to stand contact guard assist using B hands for support with minimal cues given for hand placement and trunk positioning for safety- --Needed to sit<>stand x 5 trhoughout session for perineal care after bowel movement, during ambulation, and sit<>stand activity Stand to sit contact guard assist using B hands for support with minimal cues given for hand placement and trunk positioning for safety Gait: Instructed patient with level surface ambulation of 50 feet + 10 feet + 50 feet requiring contact guard assist using FWW. Christine decreased. Moderate verbal cueing given for movement sequence, AD management, limb advancement, and posture. Wheelchair follow provided. Stairs: Deferred Balance: Static Sitting: Normal Dynamic Sitting: Normal Static Standing: Fair Dynamic Standing: Fair ASSESSMENT: Another hypotensive episode happened last night, patient session for this morning needed to be held as patient became very fatigued and remained drowsy Ambulation distance improved some more this afternoon with oxygen saturation and BP well WNL. O2 supplement at 1 l/min via NC. Pain with weight bearing diminishing. Requires continued training to progress mobility level, strength, and AD mangement while minimizing pain level. Plan of Care/Treatment Plan: Patient will highly benefit from skilled physical therapy services including functional mobility training, bed mobility/transfer training, gait and balance training, therapeutic exercises, therapeutic activity, caregiver/staff/family education and training 1x/day, 7 days/week x 1 week. Plan of care has been reviewed with the ELECTORATE OFFICER providing the service under Physical Therapy direction. Initiate Physical Therapy intervention for strengthening, bed mobility, transfers, gait, stairs, balance training, use of assistive device. DISCHARGE RECOMMENDATIONS: [] Home with no services [] [] Home with services [] Home with outpatient PT [] [] SNF for continued rehabilitation [] [] Office [facility] Reception[facility] [] [] SNF versus LTC based on ability to participate and progress [] [X] Short-term rehab vs. HH PT TREATMENT CODE/TIME: 93851 x 40 minutes for 3 units (14:52-15:32).
--- NOTE | 2024-03-03 15:18 | PGE_ITS ---
Date of Service Date of service: 03/03/24 Time of Service: 15:18 Assessment and Plan Assessment and plan (1) Hypotension: Status: Acute Assessment and plan: -Overnight 03/01 patient had been found to be hypotensive (please see event notes from overnight 03/01?03/02) -She was given IV fluids, she was given IV fluids, and hemoglobin was checked and it did show an initial drop in hemoglobin but transiently improved -Hypotension was likely due to a combination of estimated blood loss of about 500 cc during hip surgery, lingering effects of anesthesia postoperatively, and administration of the patient's metoprolol and Entresto -She did require Levophed to be initiated overnight -Afternoon 03/02/2024 patient was able to be weaned down significantly on Levophed down to 1mcg and ultimately discontinued early overnight -However, despite not receiving any of her antihypertensives or additional pain meds after 3 PM on 03/02/2024, patient again became hypotensive and required reinitiation of Levophed -At this time, uncertain as to the cause as patient is now outside the timeframe/window of what would be expected for the initial thought which was combination of lingering anesthesia, administration of afternoon antihypertensives, and pain medication -Currently patient is on 3mcg Levophed despite having fluid resuscitation -Echocardiogram without acute findings, showed improvement of EF up to 59% as compared to previous echocardiogram -Given improvement in EF and persistent low intermittent need for Levophed, will start midodrine 2.5 mg 3 times daily and continue assess blood pressure (2) HFrEF (heart failure with reduced ejection fraction): Status: Chronic Assessment and plan: -Without acute exacerbation, improved EF as noted above (3) Bronchiolitis: Status: Acute Assessment and plan: -Patient has a history of bronchiolitis does not appear to be active at this time. (4) PEG (percutaneous endoscopic gastrostomy) status: Status: Chronic Assessment and plan: -Patient cannot take foods by mouth. Just soup. -She receives tube feedings through the G-tube. -Appriciate nutrition consult, tube feeds order placed for post op when off NPO (5) Insulin dependent type 2 diabetes mellitus: Status: Chronic Assessment and plan: -Continue glucose monitoring and insulin supplementation as needed (6) Bipolar 1 disorder: Status: Chronic Assessment and plan: -Stable at this time. (7) Vitamin D deficiency: Status: Acute Assessment and plan: - In the setting of hip fracture -Calcium checked was within normal limits -Vitamin D however was below normal limits -Started vitamin D replacement -Recommend rechecking vitamin D in 8 weeks before consideration of further investigation/treatment into osteoporosis Subjective Subjective Interval history since last seen: Patient is a little somnolent but was state that she is doing well this morning. Exam Narrative Exam Narrative: Fatigued but well-appearing older female sitting up in the chair no acute distress, ANO x 4, heart regular rate rhythm, lungs clear to auscultation bilaterally, abdomen soft, nontender, nondistended Objective Last Vital Signs Temp 99.1 F 03/03/24 14:02 Pulse 77 03/03/24 14:02 Resp 21 03/03/24 14:02 BP 79/51 L 03/03/24 14:02 Pulse Ox 97 03/03/24 13:01 Laboratory Results - last 24 hr 03/03/24 03/03/24 01:05 06:00 WBC 9.74 12.29 H RBC 4.51 4.24 Hgb 13.2 12.4 Hct 39.5 37.2 MCV 88 88 MCH 29.3 29.2 MCHC 33.4 33.3 RDW 14.2 14.3 Plt Count 83 L 90 L MPV 11.4 H 11.7 H Immature Gran % 1.5 Neutrophils % 65.4 Lymphocytes % 21.0 Monocytes % 10.7 Eosinophils % 0.8 Basophils % 0.6 Nucleated RBC % 0.3 Absolute Neutrophils 6.36 Absolute Lymphocytes 2.05 Absolute Monocytes 1.04 H Absolute Eosinophils 0.08 Absolute Basophils 0.06 Sodium 145 146 H Potassium 4.4 4.0 Chloride 109 H 107 Carbon Dioxide 29.1 31.0 Anion Gap 6.9 8.0 BUN 21 H 21 H Creatinine 0.8 0.8 Est GFR (CKD-EPI 2020) 82.74 82.74 Glucose 116 H 96 Calcium 9.3 9.3 Time Spent with Patient Time Spent with Patient: >50 minutes Time was spent: preparing to see the patient(eg.review tests), obtaining and/or reviewing separately otained hiistory, ordering medications,tests, procedures, referring, communicating with other health personal care attendant, indepentently interpreting results, counseling the patient and care coordination
[2024-03-03] MEDS: Midodrine 2.5 MG TAB PO ×2 (16:33→21:26)
[2024-03-03] MEDS: Insulin Glargine 300 UNITS/3 ML PEN 10 UNITS SC (19:59)
[2024-03-03] MEDS: Atorvastatin 40 MG TAB 80 MG PO (21:26)
[2024-03-03] MEDS: DULoxetine 20 MG CAP PO (21:26)
[2024-03-04] VITALS (16 sets, daily range): BP systolic 89–114; BP diastolic 47–74; PULSE 68–94; RESP 13–23; TEMP 36.6–37.2; O2SAT 92–97
[2024-03-04] MEDS: Ketorolac 15 MG/ML VIAL IVP ×4 (02:26→20:08)
[2024-03-04 06:58] LABS: Anion Gap 4.1 mmol/L (3-11); BUN 18 mg/dL (7-18); CO2 33.9 mmol/L (21.0-32.0); CREATININE 0.6 mg/dL (0.55-1.02); Calcium 9.2 mg/dL (8.5-10.1); Chloride 109 mmol/L (98-107); Glucose 80 mg/dL (74-106); Potassium 4.7 mmol/L (3.5-5.1); Sodium 147 mmol/L (136-145)
[2024-03-04] MEDS: buPROPion 100 MG TAB 300 MG PO (08:28)
[2024-03-04] MEDS: Folic Acid 1 MG TAB PO (08:28)
[2024-03-04] MEDS: Cholecalciferol (Vitamin D3) 1,000 UNIT TAB 1000 UNITS JT (08:28)
[2024-03-04] MEDS: DULoxetine 30 MG CAP 60 MG PO (08:28)
[2024-03-04] MEDS: Midodrine 2.5 MG TAB PO ×3 (08:28→20:52)
[2024-03-04] MEDS: Normal Saline Flush 10 ML SYR IVP ×2 (09:50→20:08)
--- NOTE | 2024-03-04 11:10 | PT.INTREAT ---
PT Notes Visit Reasons: Hip Fracture Inpatient Physical Therapy Treatment Note [facility] Date: 03/04/2024 PRECAUTIONS: H/o hypotensive episodes SUBJECTIVE: Pt currently up to commode with nursing. present and seems very involved in her care. She states that she is feeling a lot of pain in her hip while standing but her head feels OK. She is ready to go for a walk. OBJECTIVE: ? VITALS: ? Pre-Treatment: BP 101/64, HR 105, spO2 92-96% on 1 L/min During Treatment: spO2 fluctuated down to the mid 80s but improved to the mid 90s when cued for breathing ? Post-Treatment: continued to be stable Therapeutic Activities (72229i0): Direct one-on-one instruction in dynamic activities to improve functional performance. ? BED MOBILITY/TRANSFERS? Sit-stand: CGA? Stand-sit: CGA? GAIT? Assistive Device: RW? Weight bearing: WBAT Assist: CGA ? Distance:? 50 ft ? Deviation: slow gait speed, minimal foot clearance ? -Provided skilled cues and instruction on performance and technique throughout. ? ASSESSMENT:? Pt did well with ambulatory activities today as her vitals remained stable. She did not show any signs of LOB or significant strength deficits when walking. She will continue to need to progress with PT to gain the necessary strength and function to return home safely. She may require short term rehab but we will see how she progresses. PLAN: Continue ambulatory activities while monitoring vitals TREATMENT CODE/TIME: Ther Act (27130 x1 - 20 min) DISCHARGE RECOMMENDATION: Short term rehab vs home with home health
--- NOTE | 2024-03-04 11:51 | W.PM.PROGNOT ---
Date of Service Date of service: 03/04/24 Time of Service: 12:06 Assessment and Plan Assessment and plan (1) Hypotension: Status: Acute Assessment and plan: -Overnight 03/01 patient had been found to be hypotensive (please see event notes from overnight 03/01?03/02) -She was given IV fluids, she was given IV fluids, and hemoglobin was checked and it did show an initial drop in hemoglobin but transiently improved -Hypotension was likely due to a combination of estimated blood loss of about 500 cc during hip surgery, lingering effects of anesthesia postoperatively, and administration of the patient's metoprolol and Entresto -She did require Levophed to be initiated overnight -Afternoon 03/02/2024 patient was able to be weaned down significantly on Levophed down to 1mcg and ultimately discontinued early overnight -However, despite not receiving any of her antihypertensives or additional pain meds after 3 PM on 03/02/2024, patient again became hypotensive and required reinitiation of Levophed -At this time, uncertain as to the cause as patient is now outside the timeframe/window of what would be expected for the initial thought which was combination of lingering anesthesia, administration of afternoon antihypertensives, and pain medication -on am 03/03 patient is on 3mcg Levophed despite having fluid resuscitation -Echocardiogram without acute findings, showed improvement of EF up to 59% as compared to previous echocardiogram -Given improvement in EF and persistent low intermittent need for Levophed, will start midodrine 2.5 mg 3 times daily and continue assess blood pressure -blood pressure much improved with midodrine and patient has not needed to be placed back on levophed (2) HFrEF (heart failure with reduced ejection fraction): Status: Chronic Assessment and plan: -Without acute exacerbation, improved EF as noted above (3) Bronchiolitis: Status: Acute Assessment and plan: -Patient has a history of bronchiolitis does not appear to be active at this time. (4) PEG (percutaneous endoscopic gastrostomy) status: Status: Chronic Assessment and plan: -Patient cannot take foods by mouth. Just soup. -She receives tube feedings through the G-tube. -Appriciate nutrition consult, tube feeds order placed for post op when off NPO (5) Insulin dependent type 2 diabetes mellitus: Status: Chronic Assessment and plan: -Continue glucose monitoring and insulin supplementation as needed (6) Bipolar 1 disorder: Status: Chronic Assessment and plan: -Stable at this time. (7) Vitamin D deficiency: Status: Acute Assessment and plan: - In the setting of hip fracture -Calcium checked was within normal limits -Vitamin D however was below normal limits -Started vitamin D replacement -Recommend rechecking vitamin D in 8 weeks before consideration of further investigation/treatment into osteoporosis Subjective Subjective Interval history since last seen: Patient states that she is feeling more awake today and was still able to get sleep overnight. She has no complaints or concerns at this time. Exam Narrative Exam Narrative: well-appearing older female sitting up in the chair no acute distress, ANO x 4, heart regular rate rhythm, lungs clear to auscultation bilaterally, abdomen soft, nontender, nondistended Objective Last Vital Signs Temp 99.1 F 03/03/24 14:02 Pulse 78 03/04/24 09:01 Resp 20 03/04/24 09:01 BP 101/54 L 03/04/24 09:01 Pulse Ox 95 03/04/24 09:01 Laboratory Results - last 24 hr 03/04/24 06:00 Sodium 147 H Potassium 4.7 Chloride 109 H Carbon Dioxide 33.9 H Anion Gap 4.1 BUN 18 Creatinine 0.6 Est GFR (CKD-EPI 2020) 100.80 Glucose 80 Calcium 9.2 Time Spent with Patient Time Spent with Patient: >50 minutes Time was spent: preparing to see the patient(eg.review tests), obtaining and/or reviewing separately otained hiistory, ordering medications,tests, procedures, referring, communicating with other health career transition specialist, indepentently interpreting results, counseling the patient and care coordination
[2024-03-04] MEDS: Insulin Aspart 300 UNITS/3 ML PEN SC ×2 (12:15→17:20)
--- NOTE | 2024-03-04 13:58 | W.NUTRFU ---
Date of service: 03/04/24 Time of Service: 13:58 Nutrition Note NOTE: follow up with patient. She denies any distention, diarrhea, and feels she is tolerating the feeding rate well (92mL/hr for 12 hour period daily as is her home routine). She is ordered for clear liquids and tolerating sips to contribute to her fluid needs. Nursing had question about flushes as the current order does not indicate. Current fluid needs are estimated at 1668mL per day. she receives 845mL fluid in her 12hr tube feed. Requested nursing flush with 60mL water before and after feeding and also 30mL between and meds given via g-tube. her total fluid intake would be 965mL excluding meds. will encourage pt to aim for a little less than 1 liter of oral fluids per day to meet the remainder of her fluid needs flushes should be adjusted depending on how consistent she can take oral fluids. Time Spent in Nutritional Counseling and Treatment: 15 min
[2024-03-04 18:56] LABS: Bilirubin Negative (Negative); Blood Negative (Negative); Clarity Clear (Clear); Glucose 500 mg/dL (Negative); Ketones Negative (Negative); Leukocyte Esterase Negative (Negative); Nitrite Negative (Negative)
--- NOTE | 2024-03-04 19:10 | W.PC.ACHO ---
Registration Status: Primary Language: Preferred Language: ED Information & Data Chief Complaint Trauma 02/29/24 21:23 Triage Note fall with head strike to 02/29/24 15:12 floor, right hip pain with shortening of right leg, was on floor x1 hour Medical / Surgical History (Last Reviewed 03/01/24 @ 05:38 by Gt Mills MD) Esophageal stricture Chronic systolic (congestive) heart failure Aspiration pneumonia Stress-induced cardiomyopathy Acute cardiogenic pulmonary edema Acute metabolic encephalopathy Bilateral pneumonia Hypokalemia Closed fracture of neck of left femur Constipation Diabetes mellitus type 2 in obese Chronic iron deficiency anemia ETOH abuse Poorly controlled diabetes mellitus Chronic pancreatitis due to acute alcohol intoxication Alcohol abuse History of pilonidal cyst Anxiety (Last Reviewed 03/01/24 @ 05:38 by Gt Mills MD) History of total left hip arthroplasty (01/19/23) S/P laparoscopic procedure S/P surgical removal of pilonidal cyst History of esophagogastroduodenoscopy (EGD) (~06/10/21) History of colonoscopy with polypectomy (~06/10/21) History of hysterectomy History of tonsillectomy History of section Most Recent Vital Signs Temperature 37.0 C 03/04/24 17:05 Temperature Source Tympanic 03/04/24 17:05 Pulse 76 03/04/24 17:05 Pulse Rhythm Irregular 02/29/24 22:26 Pulse 81 03/04/24 15:06 Respiratory Rate 18 03/04/24 17:05 Respiratory Effort Labored, Incrsd Work of Breathing 03/02/24 01:30 Respiratory Depth Deep 03/02/24 01:30 Respiratory Pattern Normal 03/02/24 01:30 Blood Pressure 107/50 L 03/04/24 17:05 Blood Pressure Mean 85 03/04/24 15:06 Pulse Oximetry 93 03/04/24 17:05 Respiratory End-tidal CO2 30 03/01/24 17:55 Oxygen Delivery Method Room Air 03/04/24 15:30 Oxygen Flow Rate 0 03/04/24 15:30 Pain Level 0 03/04/24 17:05 Comment RN notified 03/04/24 17:05 Comment by prior shift 03/04/24 04:36 Allergies metformin Adverse Reaction (Unknown, Verified 02/29/24 15:15) Diarrhea meperidine Adverse Reaction (Verified 02/29/24 15:15) gi upset Active Medications Generic Name Dose Route Start Last Admin Trade Name Freq PRN Reason Stop Dose Admin Acetaminophen 1,000 mg 02/29/24 21:53 03/01/24 11:09 Acetaminophen Solution 650 Mg/20.3 Ml Cup PO 1,000 mg Q8H PRN PRN Administration Atorvastatin Calcium 80 mg 02/29/24 22:00 03/03/24 21:26 Atorvastatin 40 Mg Tab PO 80 mg QPM LAZARUS Administration Bupropion HCl 300 mg 03/01/24 08:30 03/04/24 08:28 Bupropion 100 Mg Tab PO 300 mg DAILY LAZARUS Administration Cholecalciferol 1,000 units 03/03/24 08:30 03/04/24 08:28 Cholecalciferol (Vitamin D3) 1,000 Unit Tab JT 1,000 units DAILY LAZARUS Administration Duloxetine HCl 60 mg 03/01/24 08:30 03/04/24 08:28 Duloxetine 30 Mg Cap PO 60 mg DAILY LAZARUS Administration Duloxetine HCl 20 mg 03/01/24 20:00 03/03/24 21:26 Duloxetine 20 Mg Cap PO 20 mg HS LAZARUS Administration Empagliflozin 10 mg 03/01/24 08:30 03/02/24 08:21 Empaglifozin 10 Mg Tab PO 10 mg DAILY LAZARUS Administration Esomeprazole Magnesium 40 mg 03/02/24 07:30 03/04/24 08:28 Esomeprazole Oral Suspension 40 Mg Pkt JT 40 mg DAILY@0730 LAZARUS Administration Ferrous Sulfate 300 mg 03/01/24 08:30 03/03/24 09:28 Ferrous Sulfate 75 Mg/Ml 50 Ml Btl UD 300 mg Q48H LAZARUS Administration Folic Acid 1 mg 03/01/24 08:30 03/04/24 08:28 Folic Acid 1 Mg Tab PO 1 mg DAILY LAZARUS Administration Hydromorphone HCl 0.5 mg 03/01/24 18:27 03/01/24 18:49 Hydromorphone 1 Mg/Ml Syr IVP 0.5 mg Q2H PRN PRN Administration Norepinephrine Bitartrate 8 mg in 250 mls @ 0 mls/hr 03/02/24 01:30 03/03/24 17:53 IV 0 mcg/min INFUSION LAZARUS 0 mls/hr Titration Protocol Insulin Aspart 0 - 18 units 03/01/24 08:00 03/04/24 17:20 Insulin Aspart 300 Units/3 Ml Pen SC 6 units 0800,1200,1700 LAZARUS Administration Protocol Insulin Glargine 10 units 02/29/24 22:00 03/03/24 19:59 Insulin Glargine 300 Units/3 Ml Pen SC 10 units HS LAZARUS Administration Ketorolac Tromethamine 15 mg 03/01/24 20:00 03/04/24 13:40 Ketorolac 15 Mg/Ml Vial IVP 03/06/24 19:59 15 mg Q6H LAZARUS Administration Metoprolol Succinate 25 mg 03/01/24 20:00 03/01/24 20:52 Metoprolol Cr 25 Mg Tabcr PO 25 mg BID LAZARUS Administration Midodrine 2.5 mg 03/03/24 16:25 03/04/24 14:30 Midodrine 2.5 Mg Tab PO 2.5 mg TID LAZARUS Administration Ondansetron HCl 8 mg 02/29/24 23:46 03/01/24 19:12 Ondansetron O.D.T. 4 Mg Tabef UD 8 mg Q8H PRN PRN Administration Oxycodone HCl 5 mg 03/01/24 18:30 03/02/24 15:29 Oxycodone 5 Mg/5 Ml Cup JT 5 mg Q4H PRN PRN Administration Sacubitril/Valsartan 1 each 03/01/24 20:00 03/01/24 20:52 Sacubitril/Valsartan 24 Mg/26 Mg Tab JT 1 each BID LAZARUS Administration Sodium Chloride 0 ml 02/29/24 19:32 03/02/24 13:35 Normal Saline Flush 10 Ml Syr IVP 10 ml PRN PRN Administration Sodium Chloride 0 ml 02/29/24 20:00 03/04/24 09:50 Normal Saline Flush 10 Ml Syr IVP 30 ml BID LAZARUS Administration Valproic Acid 300 mg 03/01/24 08:30 03/04/24 14:30 Valproic Acid Oral Solution 250 Mg/5 Ml Cup PO 300 mg TID LAZARUS Administration IV IV Catheter Type [Right Mid-line Peripheral Line Midline] IV Catheter Type [Left Wrist] Saline Lock IV Catheter Type [Left Peripheral IV Antecubital] IV Catheter Type [Left Upper Saline Lock arm] IV Catheter Gauge [Left Wrist] 20 IV Catheter Gauge [Left 20 Antecubital] IV Catheter Gauge [Left Upper 20 arm] Diet Orders Category Date Time Status Diet [Customizable Nutrition Order] [DIET] Nutrition 03/04/24 Dinner Active Diagnostics 03/04/24 03/04/24 03/02/24 Range/Units 17:36 06:00 00:00 Sodium 147 H (136-145) mmol/L Potassium 4.7 (3.5-5.1) mmol/L Chloride 109 H (98-107) mmol/L Carbon Dioxide 33.9 H (21.0-32.0) mmol/L Anion Gap 4.1 (3-11) mmol/L BUN 18 (7-18) mg/dL Creatinine 0.6 (0.55-1.02) mg/dL Est GFR (CKD-EPI 2020) 100.80 (mL/min/1.73m2) Glucose 80 (74-106) mg/dL Calcium 9.2 (8.5-10.1) mg/dL Urine Color Yellow (Yellow) Urine Clarity Clear (Clear) Urine pH 7.0 (5-8) Ur Specific [place] 1.020 (1.005-1.025) Urine Protein Negative (Neg-Trace) mg/dL Urine Ketones Negative (Negative) mg/dL Urine Blood Negative (Negative) Urine Nitrite Negative (Negative) Urine Bilirubin Negative (Negative) Urine Urobilinogen 1.0 H (Up to 0.2) mg/dL Ur Leukocyte Esterase Negative (Negative) Urine Glucose 500 H (Negative) mg/dL Crossmatch See Detail [id number] Documentation Fingerstick Glucose Start: 02/29/24 19:50 Freq: .Q6H Status: Active Protocol: Activity Type Activity Date Activity User E-sign Co-sign Detail Recorded Client Recorded Date Recorded By Document 03/04/24 17:19 BKG DAEMON(3) [id number] 03/04/24 17:19 BKG DAEMON(4) Intake and Output - 24 Hour Total 02/29/24 15:00 thru 03/04/24 19:02 Intake Total 8438.229 Output Total 4740 Balance 3698.229 Weight 76.3 kg Intake: IV 4502.229 Oral 570 Blood Product 700 Rbc Leuko Reduced Unit 700 [id number] Intake, Tube Feeding Amount 2666 Output: Urine 4190 Estimated Blood Loss 550 Output, Residual 0 Other: Urine Color Yellow Urine Appearance Clear Urine Odor Normal Comment Patient turned and pivot from bed to bedside commode. Stool Size Small Stool Characteristics Hard Emesis Description None Urinary Catheter Urinary Catheter Date of 03/01/24 Insertion [Urethral (Mcrae)] Time of insertion [Urethral ( 17:40 Mcrae)] Falls Risk Assessment History of Falls Previous History 03/02/24 01:30 Contributing Factors Confusion,Unstable, 03/02/24 01:30 Impairments,Medications Ambulatory Aids Uses ambulatory device + 03/02/24 01:30 Tubes/Lines With any additional score 03/02/24 01:30 Gait Evaluation W/any additional score 03/02/24 01:30 Cognition Cognitive impairment 03/02/24 01:30 Fall Total Score 112 03/02/24 01:30 Level of Risk Maximum Risk 03/02/24 01:30 Problems (Last Reviewed 03/01/24 @ 05:38 by Gt Mills MD) Vitamin D deficiency (Acute) Hypotension (Acute) Acute blood loss anemia (Acute) History of total right hip replacement (Acute 03/01/24) Displaced fracture of right femoral neck (Acute) Closed fracture of right hip (Acute) HFrEF (heart failure with reduced ejection fraction) (Chronic) Bronchiolitis (Acute) PEG (percutaneous endoscopic gastrostomy) status (Chronic) 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) Bipolar 1 disorder (Chronic) Notes 03/02/24 06:09 Nursing Notes by Symone Bautista Nursing Note: At 1956 patient awakened, trying to get out of bed. Patient is very confused, hyperventilating, vital signs were taken, notified charge nurse. OIL RIG DRILLER and other nurse came in the room. Patient heart rate increased to 139 bpm, bp 98/66 , O2 98% on 2L nasal via canula. Called respiratory therapies,and arrived in patient's room. After ~ 5 minutes patient started to relax, vital sign HR 105, BP 98/65, 20 RR, Temp 36, 98% 2L nasal cannula. Patient went back to sleep. Will continue monitor. At 22:30 Patient BP decreased. Patient becomes hypotensive, BP 88/57, heart rate unchanged, 15 RR, O2 98%. Notified charge nurse. Patient BP continue to decrease 60's systolic with other vital signs unchanged. Notified provider. Provider assessing the patient. Provider order bolus of NS 1000 ml, ECG, and CBC. Patient on tendrelenburg position, bolus infused, check vital sign, BP slighly impove 82/54 manually taken. After a few minutes BP went back down again to 60s systolic. Provider transferred patient to ICU. Initialized on 03/02/24 06:09 - END OF NOTE 03/02/24 01:05 Nursing Notes by Win Kay Called and updated on pt status. Verbal consent for blood transfusion obtained via telephone. Provider also consulted by this RN HS to transfer pt to ICU for higher level of care. 's questions asked and answered. He reported only to call if emergency tonight, otherwise he will be in to see her in the morning. I relayed to [facility] CC and ICU staff. Pt reported she takes all meds crushed in feeding tube, as it was reported by nursing staff there was some confusion if this was done at home. reported all meds via tube. did not have any further questions and advised to call if he would like an update over night: Initialized on 03/02/24 01:05 - END OF NOTE 03/01/24 19:41 Nursing Notes by Ellie Washburn Nursing Note: Pt arrived back to unit from PACU at 1807. A&Ox4, VSS on 2LNC, medicated for pain and nausea per MAR. Initialized on 03/01/24 19:41 - END OF NOTE 03/01/24 14:19 Nursing Notes by Ellie Washburn Nursing Note: Pt down in PACU at 1410. Initialized on 03/01/24 14:19 - END OF NOTE 03/01/24 14:18 Respiratory by Aleshia Mattson 03/01/24 Pt states she wears 2L NC at night through [employer]. Pt states she has never had a sleep study or CPAP. Pt states her told her doctor that she snores during sleep and her doctor prescribed Oxygen. Initialized on 03/01/24 14:18 - END OF NOTE 03/01/24 14:00 (created 03/01/24 20:04) Nursing Notes by Ellie Washburn Nursing Note: Spoke with Bette in pharm in AM meeting who was working on figuring out pts celebrex orders as well as iron drops. Bette called this RN at 1155 and stated give pt 4mL of iron drops. Given per MAR. Initialized on 03/01/24 20:04 - END OF NOTE v v v v v v v v v Sending and/or Receiving Nurses: Please use comment section below to note any information pertinent to the patient hand-off not included above. Information / Comments: Patient transferred to unit via wheelchair from ICU. Report received from: Shea
[2024-03-04] MEDS: DULoxetine 20 MG CAP PO (20:52)
[2024-03-04] MEDS: Atorvastatin 40 MG TAB 80 MG PO (20:52)
[2024-03-04] MEDS: QUEtiapine 100 MG TAB PO (20:52)
[2024-03-04] MEDS: Insulin Glargine 300 UNITS/3 ML PEN 10 UNITS SC (21:02)
[2024-03-05 00:03] VITALS: BP 116/54; PULSE 85; RESP 18; TEMP 36.5; O2SAT 92
[2024-03-05 00:26] LABS: ALT 21 U/L (14-59); AST 35 U/L (15-37); Albumin 1.4 g/dL (3.4-5.0); Alkaline Phosphatase 78 U/L (46-116); Anion Gap 3.1 mmol/L (3-11); BUN 16 mg/dL (7-18); Bilirubin, Total 0.37 mg/dL (0.2-1.0); CO2 32.9 mmol/L (21.0-32.0); CREATININE 0.6 mg/dL (0.55-1.02); Calcium 8.8 mg/dL (8.5-10.1); Chloride 109 mmol/L (98-107); Glucose 81 mg/dL (74-106); Magnesium 1.9 mg/dL (1.8-2.4); Potassium 4.5 mmol/L (3.5-5.1); Sodium 145 mmol/L (136-145); Total Protein 4.7 g/dL (6.4-8.2)
[2024-03-05] MEDS: Normal Saline Flush 10 ML SYR IVP ×5 (02:35→20:11)
[2024-03-05] MEDS: Ketorolac 15 MG/ML VIAL IVP ×4 (02:35→20:09)
[2024-03-05 04:44] VITALS: BP 117/68; PULSE 93; RESP 18; TEMP 36.6; O2SAT 96
[2024-03-05 06:21] LABS: HCT 25.8 % (36.0-46.0); MCH 29.6 pg (27.0-33.0); MCHC 33.3 % (32.0-36.0); MCV 89 fL (80-95); MPV 10.9 fL (8.0-11.0); RBC 2.91 10^6/uL (3.93-5.22); RDW 14.6 % (11.7-14.6); RDW-SD 46.9 fL; WBC 6.09 10^3/uL (4.4-10.8)
[2024-03-05 06:38] LABS: ALT 18 U/L (14-59); AST 31 U/L (15-37); Albumin 1.4 g/dL (3.4-5.0); Alkaline Phosphatase 70 U/L (46-116); Anion Gap 2.9 mmol/L (3-11); BUN 15 mg/dL (7-18); Bilirubin, Total 0.36 mg/dL (0.2-1.0); CO2 33.1 mmol/L (21.0-32.0); CREATININE 0.6 mg/dL (0.55-1.02); Chloride 110 mmol/L (98-107); Glucose 84 mg/dL (74-106); Magnesium 1.9 mg/dL (1.8-2.4); Potassium 4.6 mmol/L (3.5-5.1); Sodium 146 mmol/L (136-145); Total Protein 4.7 g/dL (6.4-8.2)
[2024-03-05 06:47] LABS: HGB 8.6 g/dL (11.2-15.7); Platelet Count 81 10^3/uL (130-400)
[2024-03-05 07:26] VITALS: BP 122/44; PULSE 84; RESP 14; TEMP 36; O2SAT 96
--- NOTE | 2024-03-05 08:47 | PGE_ITS ---
Date of Service Date of service: 03/05/24 Time of Service: 08:47 Assessment and Plan Assessment and plan (1) Hypotension: Status: Acute Assessment and plan: -Overnight 03/01 patient had been found to be hypotensive (please see event notes from overnight 03/01?03/02) -She was given IV fluids, she was given IV fluids, and hemoglobin was checked and it did show an initial drop in hemoglobin but transiently improved -Hypotension was likely due to a combination of estimated blood loss of about 500 cc during hip surgery, lingering effects of anesthesia postoperatively, and administration of the patient's metoprolol and Entresto -She did require Levophed to be initiated overnight -Afternoon 03/02/2024 patient was able to be weaned down significantly on Levophed down to 1mcg and ultimately discontinued early overnight -However, despite not receiving any of her antihypertensives or additional pain meds after 3 PM on 03/02/2024, patient again became hypotensive and required reinitiation of Levophed -At this time, uncertain as to the cause as patient is now outside the timeframe/window of what would be expected for the initial thought which was combination of lingering anesthesia, administration of afternoon antihypertensives, and pain medication -on am 03/03 patient is on 3mcg Levophed despite having fluid resuscitation -Echocardiogram without acute findings, showed improvement of EF up to 59% as compared to previous echocardiogram -Given improvement in EF and persistent low intermittent need for Levophed, will start midodrine 2.5 mg 3 times daily and continue assess blood pressure -blood pressure much improved with midodrine and patient has not needed to be placed back on levophed (2) HFrEF (heart failure with reduced ejection fraction): Status: Chronic Assessment and plan: -Without acute exacerbation, improved EF as noted above (3) Bronchiolitis: Status: Acute Assessment and plan: -Patient has a history of bronchiolitis does not appear to be active at this time. (4) PEG (percutaneous endoscopic gastrostomy) status: Status: Chronic Assessment and plan: -Patient cannot take foods by mouth. Just soup. -She receives tube feedings through the G-tube. -Appriciate nutrition consult, tube feeds order placed for post op when off NPO (5) Insulin dependent type 2 diabetes mellitus: Status: Chronic Assessment and plan: -Continue glucose monitoring and insulin supplementation as needed (6) Bipolar 1 disorder: Status: Chronic Assessment and plan: -Stable at this time. (7) Vitamin D deficiency: Status: Acute Assessment and plan: - In the setting of hip fracture -Calcium checked was within normal limits -Vitamin D however was below normal limits -Started vitamin D replacement -Recommend rechecking vitamin D in 8 weeks before consideration of further investigation/treatment into osteoporosis Subjective Subjective Interval history since last seen: Patient states that she is feeling more awake today and was still able to get sleep overnight. She has no complaints or concerns at this time. Exam Narrative Exam Narrative: well-appearing older female sitting up in the chair no acute distress, ANO x 4, heart regular rate rhythm, lungs clear to auscultation bilaterally, abdomen soft, nontender, nondistended Objective Last Vital Signs Temp 96.8 F L 03/05/24 07:26 Pulse 84 03/05/24 07:26 Resp 14 03/05/24 07:26 BP 122/44 L 03/05/24 07:26 Pulse Ox 96 03/05/24 07:26 Laboratory Results - last 24 hr 03/02/24 03/04/24 03/04/24 00:00 17:36 23:57 WBC RBC Hgb Hct MCV MCH MCHC RDW Plt Count MPV Sodium 145 Potassium 4.5 Chloride 109 H Carbon Dioxide 32.9 H Anion Gap 3.1 BUN 16 Creatinine 0.6 Est GFR (CKD-EPI 2020) 100.80 Glucose 81 Calcium 8.8 Magnesium 1.9 Total Bilirubin 0.37 AST 35 ALT 21 Alkaline Phosphatase 78 Total Protein 4.7 L Albumin 1.4 L Urine Color Yellow Urine Clarity Clear Urine pH 7.0 Ur Specific [place] 1.020 Urine Protein Negative Urine Ketones Negative Urine Blood Negative Urine Nitrite Negative Urine Bilirubin Negative Urine Urobilinogen 1.0 H Ur Leukocyte Esterase Negative Urine Glucose 500 H Crossmatch See Detail 03/05/24 06:10 WBC 6.09 RBC 2.91 L Hgb 8.6 L D Hct 25.8 L MCV 89 MCH 29.6 MCHC 33.3 RDW 14.6 Plt Count 81 L MPV 10.9 Sodium 146 H Potassium 4.6 Chloride 110 H Carbon Dioxide 33.1 H Anion Gap 2.9 L BUN 15 Creatinine 0.6 Est GFR (CKD-EPI 2020) 100.80 Glucose 84 Calcium 9.0 Magnesium 1.9 Total Bilirubin 0.36 AST 31 ALT 18 Alkaline Phosphatase 70 Total Protein 4.7 L Albumin 1.4 L Urine Color Urine Clarity Urine pH Ur Specific [place] Urine Protein Urine Ketones Urine Blood Urine Nitrite Urine Bilirubin Urine Urobilinogen Ur Leukocyte Esterase Urine Glucose Crossmatch Time Spent with Patient Time Spent with Patient: >50 minutes Time was spent: preparing to see the patient(eg.review tests), obtaining and/or reviewing separately otained hiistory, ordering medications,tests, procedures, referring, communicating with other health lawn care specialist, indepentently interpreting results, counseling the patient and care coordination
[2024-03-05] MEDS: Folic Acid 1 MG TAB PO (09:08)
[2024-03-05] MEDS: DULoxetine 30 MG CAP 60 MG PO (09:08)
[2024-03-05] MEDS: Cholecalciferol (Vitamin D3) 1,000 UNIT TAB 1000 UNITS JT (09:08)
[2024-03-05] MEDS: buPROPion 100 MG TAB 300 MG PO (09:08)
[2024-03-05] MEDS: Midodrine 2.5 MG TAB PO ×3 (09:08→20:10)
--- NOTE | 2024-03-05 11:10 | PT.INTREAT ---
PT Notes Visit Reasons: Hip Fracture Inpatient Physical Therapy Treatment Note [facility] Date: 03/05/24 PRECAUTIONS: H/o hypotensive episodes SUBJECTIVE: Pt states that she is feeling better today. She wants to walk farther than yesterday. OBJECTIVE: ? PAIN: right hip pain that she states is manageable today VITALS: monitored by nursing Therapeutic Activities (04959e3): Direct one-on-one instruction in dynamic activities to improve functional performance. ? BED MOBILITY/TRANSFERS? Sit-stand: CGA? Stand-sit: CGA ? -Provided skilled cues and instruction on performance and technique throughout. GAIT? Assistive Device: RW ? Weight bearing: WBAT Assist: CGA ? Distance:?70 ft ? Deviation: slow gait speed, decreased step length, increased UE support on RW, 2 standing breaks needed ? EXERCISES LAQs x10 bilat, seated hip flex x10 bilat ASSESSMENT:? Pt able to progress with her ambulatory status today. She continues to lack the necessary endurance to return home at her current state. She may be able to return home within the next day or two with home health services if she is medically cleared. PLAN: Continue ambulatory progression, stair training within the next day or two TREATMENT CODE/TIME: Ther Act (25068) x1 - 19 min DISCHARGE RECOMMENDATION: Home with home health vs SNF depending on progression the next few days
[2024-03-05 11:22] VITALS: BP 114/60; PULSE 68; RESP 18; TEMP 36.4; O2SAT 98
[2024-03-05] MEDS: Insulin Aspart 300 UNITS/3 ML PEN SC ×2 (12:01→17:51)
[2024-03-05 15:04] VITALS: BP 130/58; PULSE 86; RESP 18; TEMP 36.2; O2SAT 96
[2024-03-05] MEDS: HYDROmorphone 1 MG/ML SYR 0.5 MG IVP (15:15)
[2024-03-05 19:35] VITALS: BP 109/36; PULSE 80; RESP 18; TEMP 36.4; O2SAT 98
[2024-03-05] MEDS: QUEtiapine 100 MG TAB PO (20:10)
[2024-03-05] MEDS: DULoxetine 20 MG CAP PO (20:10)
[2024-03-05] MEDS: Atorvastatin 40 MG TAB 80 MG PO (20:10)
[2024-03-05] MEDS: Insulin Glargine 300 UNITS/3 ML PEN 10 UNITS SC (20:22)
--- NOTE | 2024-03-06 | DI.RAD_ITS ---
Exam(s) XR HIP RT AP LAT ONLY EXAM: XR HIP RT AP LAT ONLY CLINICAL HISTORY: f/u R KYUNG after mobilization. TECHNIQUE: 2D digital imaging was performed. COMPARISON: X-rays of 03/01/2024. CT scan of 03/02/2024. FINDINGS: Two views There is stable position alignment of the components of the recently placed right hip prosthesis. No fracture or loosening evident. There is no remaining gas in the soft tissues. IMPRESSION: Satisfactory appearance DATA REPOSITORY: RADIATION DOSE DELIVERED:
[2024-03-06] MEDS: Ketorolac 15 MG/ML VIAL IVP ×3 (03:15→13:43)
[2024-03-06] MEDS: Normal Saline Flush 10 ML SYR IVP ×4 (03:16→21:36)
[2024-03-06 03:18] VITALS: BP 137/64; PULSE 74; RESP 18; TEMP 36; O2SAT 96
[2024-03-06 07:19] VITALS: BP 129/50; PULSE 80; RESP 18; TEMP 35.9; O2SAT 96
[2024-03-06] MEDS: DULoxetine 30 MG CAP 60 MG PO (08:30)
[2024-03-06] MEDS: Folic Acid 1 MG TAB PO (08:31)
[2024-03-06] MEDS: Cholecalciferol (Vitamin D3) 1,000 UNIT TAB 1000 UNITS JT (08:31)
[2024-03-06] MEDS: buPROPion 100 MG TAB 300 MG PO (08:31)
[2024-03-06] MEDS: Midodrine 2.5 MG TAB PO ×3 (08:31→21:09)
--- NOTE | 2024-03-06 10:35 | PTTR_ITS ---
PT Notes Visit Reasons: Hip Fracture Physical Therapy Inpatient Treatment Note Date: 03/06/2024 Precautions: Fall. Standard. WBAT on R LE with AD. Subjective: Reported 6-7/10 pain with ambulation. Nurse Ryder made aware. Patient more cooperative and motivated to do better. and patient hoping to achieve ambulation level using single point cane before going home from short-term rehab. SUPERVISOR [employer] Crystla added that patient has been moving a lot better to and from bathroom. Objective: General Observation: Patient in chair when Pt arrived. Nurse Soler temporarily disconnected patient from PEG tube for the walk. Telemetry monitoring in place. Mcrae catheter now discharged. Mental Status: Alert and oriented as to person, place, time, and purpose. Able to pay attention, focus, and respond appropriately. Pain: As above Vital Signs: Oxygen supplementation discharged, patient now on room air Bed Mobility/Transfers: Minimal cueing provided for use of B hands as needed for support, movement sequence, AD management, and posture to reduce fall risk and minimize pain report Sit to stand with stand by assist using B hands for support with minimal cues given for hand placement and trunk positioning for safety-with FWW Stand to sit with stand by assist using B hands for support with minimal cues given for hand placement and trunk positioning for safety with FWW Gait: Instructed patient with level surface ambulation of 150 feet + 150 feet requiring stand by assist using 2WW. Christine improving. Step length and height improving. Minimal verbal cueing given for movement sequence, AD management, limb advancement, and posture. Stairs: Guided patient with negotiation of 2 x 6-inch steps and 3 x 4-inch steps while holding onto B rails for support Balance: Static Sitting: Normal Dynamic Sitting: Normal Static Standing: Fair Dynamic Standing: Fair ASSESSMENT: Patient's vital signs have stabilized and has been doing well with mobility performance. Her and her are hoping to achieve independent ambulation using single point cane at the SNF. Pain level beginning to marco antonio allowing improved activity tolerance and functional performance. DISCHARGE RECOMMENDATIONS: [] Home with no services [] [] Home with services [] Home with outpatient PT [] [] SNF for continued rehabilitation [] [] Long-Term Care [] [] SNF versus LTC based on ability to participate and progress [] [X] Short-term rehab vs. HH PT TREATMENT CODE/TIME: 15863 x 29 minutes for 2 units (10:35-11:04).
--- NOTE | 2024-03-06 10:35 | PTTR_ITS ---
PT Notes Visit Reasons: Hip Fracture Physical Therapy Inpatient Treatment Note Date: 03/06/2024 Precautions: Fall. Standard. WBAT on R LE with AD. Subjective: Reported 8/10 pain with ambulation. Nurse Soler aware and managing. Per Nurse Soler Radiologist report from testing this afternoon showed everything is in aleja ce. Objective: General Observation: Patient in chair when PT arrived. Nurse Soler temporarily disconnected patient from PEG tube for the walk. Telemetry monitoring in place. Mcrae catheter now discharged. Mental Status: Alert and oriented as to person, place, time, and purpose. Able to pay attention, focus, and respond appropriately. Pain: As above Vital Signs: Oxygen supplementation discharged, patient now on room air Bed Mobility/Transfers: Minimal cueing provided for use of B hands as needed for support, movement sequence, AD management, and posture to reduce fall risk and minimize pain report Sit to stand with stand by assist using B hands for support with minimal cues given for hand placement and trunk positioning for safety-with FWW Stand to sit with stand by assist using B hands for support with minimal cues given for hand placement and trunk positioning for safety with FWW Gait: Instructed patient with level surface ambulation of 150 feet + 150 feet requiring stand by assist using 2WW. Tolerated about 130 feet + 130 feet in the afternoon. Christine improving. Step length and height improving. Minimal verbal cueing given for movement sequence, AD management, limb advancement, and posture. Stairs: Guided patient with negotiation of 2 x 6-inch steps and 3 x 4-inch steps while holding onto B rails for support THERA EX: Gluteal sets x 5 sh hodl x 5 Quadriceps sets x 5 sh x 5 Balance: Static Sitting: Normal Dynamic Sitting: Normal Static Standing: Fair Dynamic Standing: Fair ASSESSMENT: Patient's vital signs have stabilized and has been doing well with mobility performance. He and her are hoping to achieve independent ambulation using single point cane at the SNF. Pain level up after today's ambulation and Nurse Soler was made aware. Patient will continue to require services to continue mobility progression, strengthening, and balance retraining. DISCHARGE RECOMMENDATIONS: [] Home with no services [] [] Home with services [] Home with outpatient PT [] [] SNF for continued rehabilitation [] [] [facility] [] [] SNF versus LTC based on ability to participate and progress [] [X] Short-term rehab vs. HH PT TREATMENT CODE/TIME: Session 2--99090 x 15 minutes for 1 unit, 14975 x 13 minutes for 1 unit (15:18- 15:46).
[2024-03-06 11:10] VITALS: BP 116/81; PULSE 86; RESP 18; TEMP 36.5; O2SAT 94
[2024-03-06] MEDS: Insulin Aspart 300 UNITS/3 ML PEN SC ×2 (11:41→16:55)
--- NOTE | 2024-03-06 12:05 | PDOC.CMPRO ---
Date of service: 03/06/24 Time of Service: 11:00 Care Management Progress Note Progress Note Text Progress Note Text: Jennifer was sitting up in the chair when CM met with her today. Her , Campos, was present as well, and had asked to speak with CM. Jennifer looked well, is working with PT, but does not feel that she is able to go home. She has steps to get into the house that she doesn't feel she can navigate at this time, especially with so many up-coming appointments. CM let them know that referrals were sent to [facility], and to the [facility], and that [facility] referral needed to be re-sent, and the [facility] referral had not yet been reviewed when CM checked in earlier today. Discharge Potential Discharge Needs: PCP F/U Appt and Surgical F/U Appt Anticipated Barriers to Discharge: Bed availability Patient/Family Education Needs: Review discharge instructions, discuss Ask Me Three Plan: Anticipate that Jennifer will be transferred to SNF when she is medically cleared. CM will check on referrals sent later this afternoon. Transportation will be dependent on disposition. CM will continue to follow and update the family and the plan as needed. SDOH(Care Management) Screening Will the Patient Participate in the Screening?: Yes Do you worry about having a steady place to live?: no In the past 12 months, have you had to go without electric, gas, oil or water in your home?: no Have you or anyone in your house had to go without enough food to eat?: no Has lack of transportation kept you from medical appointments or from doing things needed for daily living?: no Has anyone in your support network made you feel unsafe for any reason?: no
--- NOTE | 2024-03-06 12:26 | PGE_ITS ---
Date of Service Date of service: 03/06/24 Time of Service: 16:25 Assessment and Plan Assessment and plan (1) Displaced fracture of right femoral neck: Status: Acute Assessment and plan: Jennifer is a 63-year-old who is now status post dual mobility hip replacement for a displaced femoral neck fracture. This was complicated by have some persistent hypotension following surgery in the setting of many other medical comorbidities. She seems to be making improvements. She is working diligently physical therapy but will likely need half-way facility on discharge. Gage donahue medically appears more stable. Repeat, post mobilization x-rays of the right hip show no change in position of the hip components and no signs of loosening or fracture or malpositioning. At this point, she would benefit from half-way facility discharge to continue to work on strengthening, mobility, and endurance prior to discharge to home. No signs of surgical complications. Subjective Subjective Interval history since last seen: Jennifer reports to be doing better. She has been transferred out of the ICU and has been able to hold her blood pressure. She has been working physical therapy and with nursing and feels that is getting better on a day-to-day basis although still limited. She does report some pain about the anterior groin and anterior thigh with mobilization but feels that it does not necessarily worsen the longer she is standing. I ordered x-rays to be performed today. She denies any radicular numbness or tingling. Exam Narrative Exam Narrative: Sitting up in the chair. No acute distress. Evaluation of the right hip shows a clean dry and intact dressing. Mild amount of ecchymosis. Thigh soft and compressible. No significant pain with hip internal and external rotation. Sensation intact to light touch over the deep and superficial peroneal nerve and tibial nerve. She has intact ankle dorsiflexion and plantarflexion as well as great toe extension. Objective Last Vital Signs Temp 36.5 C 03/06/24 11:10 Pulse 86 03/06/24 11:10 Resp 18 03/06/24 11:10 BP 116/81 03/06/24 11:10 Pulse Ox 94 03/06/24 11:10 Objective Narrative Objective Narrative: X-ray of the right hip shows total hip arthroplasty in good position. There is been no change in position. There is no sign of fracture. Time Spent with Patient Time Spent with Patient: <25 minutes Time was spent: preparing to see the patient(eg.review tests), obtaining and/or reviewing separately otained hiistory, referring, communicating with other health housekeeper caregiver, indepentently interpreting results and counseling the patient
[2024-03-06] MEDS: Ondansetron O.D.T. 4 MG TABEF 8 MG UD ×2 (12:53→21:36)
[2024-03-06 15:16] VITALS: BP 113/56; PULSE 83; RESP 18; TEMP 36.5; O2SAT 96
[2024-03-06] MEDS: Acetaminophen Solution 650 MG/20.3 ML CUP 1000 MG PO (15:54)
[2024-03-06 19:35] VITALS: BP 108/59; PULSE 87; RESP 17; TEMP 36.3; O2SAT 98
[2024-03-06] MEDS: DULoxetine 20 MG CAP PO (21:09)
[2024-03-06] MEDS: Atorvastatin 40 MG TAB 80 MG PO (21:10)
[2024-03-06] MEDS: QUEtiapine 100 MG TAB PO (21:10)
[2024-03-06] MEDS: Insulin Glargine 300 UNITS/3 ML PEN 10 UNITS SC (21:20)
[2024-03-06] MEDS: HYDROmorphone 1 MG/ML SYR 0.5 MG IVP (21:36)
[2024-03-06 23:47] VITALS: BP 106/86; PULSE 97; RESP 17; TEMP 36.2; O2SAT 96
[2024-03-07] VITALS (9 sets, daily range): BP systolic 114–144; BP diastolic 56–76; PULSE 75–117; RESP 16–19; TEMP 35.7–37.5; O2SAT 92–100
--- NOTE | 2024-03-07 08:03 | NUR.NOTE ---
Nursing Note: Pt vomiting, tube feeds held at this time, will CTM.
--- NOTE | 2024-03-07 08:06 | PT.INTREAT ---
PT Notes Visit Reasons: Hip Fracture Physical Therapy Inpatient Treatment Note Date: 03/07/2024 Precautions: Fall. Standard. WBAT on R LE with AD. Subjective: Patient did clarify that with the Oxycodone intake, pain level did go down to 3-4/10 within an hour or so. Was okay and in good spirits in the morning but was mildly tearful in the afternoon as she needed to use the bathroom but nobody came in to help her. Rogleio came in before PT did and realized that patient has not pressed her call button. Patient was in tears when PT arrived as was upset that she did not ring the marshall. PT pacified patient and prepped her for the afternoon session. stayed in room during session while patient was with PT in the hallway and in the therapy room. Objective: General Observation: Patient in bed when PT arrived. PEG tube feed temporarily disconnected. Telemetry monitoring in place. Mcrae catheter now discharged. Mental Status: Alert and oriented as to person, place, time, and purpose. Able to pay attention, focus, and respond appropriately. Pain: As above Vital Signs: WNL Bed Mobility/Transfers: Minimal cueing provided for use of B hands as needed for support, movement sequence, AD management, and posture to reduce fall risk and minimize pain report Sit to stand with stand by assist using B hands for support with minimal cues given for hand placement and trunk positioning for safety-with FWW Stand to sit with stand by assist using B hands for support with minimal cues given for hand placement and trunk positioning for safety with FWW Gait: Instructed patient with level surface ambulation of 150 feet + 150 feet requiring stand by assist using 2WW. Tolerated about 130 feet + 130 feet in the afternoon. Christine improving. Step length and height improving. Minimal verbal cueing given for movement sequence, AD management, limb advancement, and posture. Stairs: Guided patient with negotiation of 2 x 6-inch steps and 3 x 4-inch steps while holding onto B rails for support. Stand by assist provided with cueing given for limb movement sequence to minimize pain report. THERA EX: Gluteal sets x 5 sh hold x 10 Quadriceps sets x 5 sh x 10 Ankle pumps x 10 Seated heel slides x 5 LAQs x 10 Balance: Static Sitting: Normal Dynamic Sitting: Normal Static Standing: Fair Dynamic Standing: Fair ASSESSMENT: Was able to work through session despite nausea and vomiting x 1. Progression slowed by pain report. Will continue to work with nurse for pre-medication for pain. Patient able to move a lot safe and easier when pain level is managed well. PLAN: Continue with exercise, strength, and mobility progression to achive safest functional level i nanticipation of discharge to home when safe DISCHARGE RECOMMENDATIONS: [] Home with no services [] [] Home with services [] Home with outpatient PT [] [] SNF for continued rehabilitation [] [] Half-Way Care [] [] SNF versus LTC based on ability to participate and progress [] [X] Short-term rehab vs. PT TREATMENT CODE/TIME: Session 1--19364 x 33 minutes for 2 units (08:06-08:39). Session2--95482 x 25 minutes for 2 units, 22523 x 15 minutes for 1 unit (14:29-15:14).
--- NOTE | 2024-03-07 08:06 | PT.INIE ---
PT Notes Visit Reasons: Hip Fracture
--- NOTE | 2024-03-07 08:06 | IN_ITS ---
PT Notes Visit Reasons: Hip Fracture
[2024-03-07] MEDS: Ondansetron O.D.T. 4 MG TABEF 8 MG UD ×2 (08:14→20:41)
--- NOTE | 2024-03-07 09:30 | NUR.NOTE ---
Nursing Note:0916-Dr. Denney made aware pt had 6bt run of vtach, vss. No new orders at that time.
[2024-03-07] MEDS: buPROPion 100 MG TAB 300 MG PO (09:44)
[2024-03-07] MEDS: Folic Acid 1 MG TAB PO (09:44)
[2024-03-07] MEDS: oxyCODONE 5 MG/5 ML CUP JT ×3 (09:44→20:39)
[2024-03-07] MEDS: DULoxetine 30 MG CAP 60 MG PO (09:44)
[2024-03-07] MEDS: Midodrine 2.5 MG TAB PO ×3 (09:44→20:41)
[2024-03-07] MEDS: Cholecalciferol (Vitamin D3) 1,000 UNIT TAB 1000 UNITS JT (09:44)
[2024-03-07] MEDS: Normal Saline Flush 10 ML SYR IVP ×2 (09:45→22:13)
--- NOTE | 2024-03-07 12:14 | NUR.NOTE ---
Nursing Note: Pt states I want to try to eat my tray and if I dont feel well I dont want my tube feed. TF remains on hold per pt request.
--- NOTE | 2024-03-07 12:17 | W.PM.PROGNOT ---
Date of Service Date of service: 03/07/24 Time of Service: 12:17 Assessment and Plan Assessment and plan (1) Acute blood loss anemia: Start date: 03/07/24 Status: Acute Assessment and plan: Patient did have postoperative bleeding with 1 unit of packed red blood cells given postoperatively now with slowly increasing hemoglobin on enteral iron supplement through her PEG tube. She may need more nutritional supplements as she recovers from her postoperative bleed. She also may have chronic anemia with chronic disease and variable nutrition. Continue to monitor on supplement. (2) Hypotension: Status: Resolved Assessment and plan: Patient had postoperative hypotension which may have been a combination of blood loss and anesthesia, now recovered. Restart metoprolol and if tolerated will reinitiate Entresto either at half dose or full dose after reviewing with the patient's dietary aide teacher at [facility]. Qualifiers: Hypotension type: hypotension due to drug Qualified Code(s): I95.2 - Hypotension due to drugs (3) HFrEF (heart failure with reduced ejection fraction): Status: Chronic Assessment and plan: Reinitiate metoprolol and Entresto as tolerated. Follow-up with cardiology at [facility]. (4) PEG (percutaneous endoscopic gastrostomy) status: Status: Chronic Assessment and plan: Patient needs dressing changes every other day or daily if needed as per . Continue gastrostomy feeds with patient having esophageal stricture. (5) Vitamin D deficiency: Status: Chronic Assessment and plan: Continue supplement and follow-up levels long-term. (6) Displaced fracture of right femoral neck: Status: Resolved Assessment and plan: Continue to monitor with orthopedic follow-up postoperatively. Patient will receive physical therapy while in this hospital on swing bed level of care if stable medically. Long-term treatment to return home with her . Subjective Subjective Interval history since last seen: This is a 63-year-old female patient who was admitted with right hip failure status post repair and postoperatively having hypotension with an acute bleed and anemia responded to 1 unit of packed red blood cells. She is being treated for chronic CHF and has her metoprolol and Entresto being held up to the point now with the blood pressure with covering the patient feeling more toward normal. She has had no further bleeding though her hemoglobin was decreased with measurement recently, repeat CBC today shows increase in hemoglobin level by at least 1 g/dL now at 9.8 g/dL. She does have chronic anemia and is fed through PEG tube with possible nutritional deficit on iron supplement. Her was concerned about her heart failure medicines being held I did call her dietary aide teacher at [facility], and Dr. Milagros Hernandez who will call for follow-up in the next day or so. I did speak to her nurse and advised I will be restarting metoprolol and Entresto will be restarted the next day or so after reviewing with her dietary aide teacher. Long-term patient will need rehabilitation and she is working on appropriate paperwork for swing bed level of care at this institution since she has been denied care at the usual rehab centers. She is a full code. Exam Narrative Exam Narrative: General: Patient appears older than stated age, flattened affect but normal eye contact and conversation. Obese. She is alert and oriented x 3 and in no acute distress. HEENT: Normocephalic, coarsened facial features, eyes with pupils equal and reactive to light directly, extraocular movement intact and sclera anicteric. Oropharynx with moist mucosa and fair dentition. Neck: Supple without JVD. Back: Kyphotic without CVA tenderness. Lungs: Aeration, clear to auscultation and percussion with no focalizing rales rhonchi. No expiratory wheeze. Heart: Borderline tachycardia with normal rhythm, no murmurs or gallops appreciated. Abdomen: Obese contour, soft and nontender to palpation no palpable hepatosplenomegaly. PEG tube is in place with odiferous dressing which was changed and washed. Extremities: 2+ nonpitting edema right leg with well-healed incisional scar right hip, no pitting edema left leg, no cyanosis or clubbing. Good cap refill. Skin: Pale, warm and dry. Neuro: Cranial nerves II to XII is intact, no focalized motor deficits. No tremor. Psych: Flattened affect with depressed mood. No normal thought processes. Remote and recent memory grossly intact. Objective Last Vital Signs Temp 36.6 C 03/07/24 11:34 Pulse 83 03/07/24 11:34 Resp 18 03/07/24 11:34 BP 144/74 H 03/07/24 11:34 Pulse Ox 99 03/07/24 11:34 Reviewed Pertinent PMH: Yes Time Spent with Patient Time Spent with Patient: 35-49 minutes Time was spent: preparing to see the patient(eg.review tests), obtaining and/or reviewing separately otained hiistory, ordering medications,tests, procedures, referring, communicating with other health health care liaison, indepentently interpreting results, counseling the patient and care coordination
[2024-03-07 12:52] LABS: HCT 30.6 % (36.0-46.0); HGB 9.8 g/dL (11.2-15.7); MCH 29.3 pg (27.0-33.0); MCV 91 fL (80-95); MPV 10.1 fL (8.0-11.0); Platelet Count 122 10^3/uL (130-400); RBC 3.35 10^6/uL (3.93-5.22); RDW 13.9 % (11.7-14.6); RDW-SD 45.7 fL; Reticulocyte 2.5 % (0.5-2.4); WBC 7.82 10^3/uL (4.4-10.8)
[2024-03-07 12:53] LABS: Bilirubin Negative (Negative); Blood Negative (Negative); Clarity Clear (Clear); Glucose 500 mg/dL (Negative); Ketones Negative (Negative); Leukocyte Esterase Negative (Negative); Nitrite Negative (Negative); pH 8.5 (5-8)
--- NOTE | 2024-03-07 13:01 | CHAPLAIN ---
Jennifer was up in a chair watching tv when I visited. She said she expects her , Rogelio, to be in to visit later. Jennifer told me about her hip surgery and also about losing hearing in her right ear. She shared some personal history and also told me about her son, the youngest one is in school at [employer]. Jennifer wasn't sure what year he's in. Jennifer was pleasant and easily engaged in conversation. She said she has soap operas that she watches on tv to pass the time here.
[2024-03-07 13:24] LABS: Iron 44 ug/dL (50-170)
[2024-03-07 13:31] LABS: ALT 26 U/L (14-59); AST 26 U/L (15-37); Albumin 2.1 g/dL (3.4-5.0); Alkaline Phosphatase 93 U/L (46-116); Anion Gap 7.4 mmol/L (3-11); BUN 12 mg/dL (7-18); Bilirubin, Total 0.45 mg/dL (0.2-1.0); CO2 30.6 mmol/L (21.0-32.0); CREATININE 0.7 mg/dL (0.55-1.02); Calcium 9.4 mg/dL (8.5-10.1); Chloride 103 mmol/L (98-107); Estimated GFR 97.12 (mL/min/1.73m2); Ferritin 204 ng/mL (8-252); Folate > 20.0 ng/mL (8.6-20.0); Glucose 135 mg/dL (74-106); Potassium 4.2 mmol/L (3.5-5.1); Sodium 141 mmol/L (136-145); Vitamin B12 927 pg/mL (193-986)
--- NOTE | 2024-03-07 16:10 | NUR.NOTE ---
Nursing Note: 1322-Dr. Denney made aware pt was nauseous all morning and refused her feeds and her residual was >200, asked MD about parameters for holding feeds, per MD do not need to check residual. Pt stated she felt well enough for her feeds and asked to start them, feeds started at 1605 per pt request.
--- NOTE | 2024-03-07 16:48 | CMPROGNOTE_ITS ---
Date of service: 03/07/24 Time of Service: 12:15 Care Management Progress Note Progress Note Text Progress Note Text: CM met with Jennifer and Campos several times today. Jennifer was not given any bed offers after referrals were sent to [facility], the [facility], [facility], [facility], [facility], [facility], [facility], and the [place]. Jennifer and Campos do not feel that Jennifer is capable quite yet of returning home. They raised concerns over restarting her metoprolol and Entresto at home, without monitoring. Provider spoke with Jennifer's chief librarian circulation department at [facility] today for recommendations on restarting those meds. Jennifer will remain in the hospital u ntil she is back to her correct dosing. She will continue to work with PT while she is here. CM consulted with PT. PT will focus on working on the stairs, as that is Jennifer's biggest concern. She has 5 stairs into her apartment that she doesn't feel she can navigate. CM also provided the Jason with the patient assistance packet. Campos is going to get the required documents tomorrow and hand them in to patient assistance, but has already been told that they qualify for 100% assistance. Jennifer receives her GT supplies and formula through [facility]. On discharge, or prior to, they will require last provider note, d/c summary, most recent labs, most recent nutrition note. If there are no changes in the formula order, provider can put in the d/c summary resume tube feeds as prior to admission. If there are changes, new orders will have to be placed. Contact at [facility] is Nery [phone] Discharge Potential Discharge Needs: PCP F/U Appt and Surgical F/U Appt (ortho) Anticipated Barriers to Discharge: Medical Status (restarting cardiac meds) Patient/Family Education Needs: Review discharge instructions, discuss Ask Me Three and Other Transportation: Private vehicle (with Campos) Plan: Anticipate that Jennifer will discharge home with new services for HH PT vs outpatient PT. Family has stated they do not wish for anyone in the home. CM will revisit this now that a plan is more set. Jennifer will f/u with her PCP and the orthopedic surgeons. She will transport in a private vehicle with Campos and continue per her plan of care. SDOH(Care Management) Screening Will the Patient Participate in the Screening?: Yes Do you worry about having a steady place to live?: no In the past 12 months, have you had to go without electric, gas, oil or water in your home?: no Have you or anyone in your house had to go without enough food to eat?: no Has lack of transportation kept you from medical appointments or from doing things needed for daily living?: no Has anyone in your support network made you feel unsafe for any reason?: no Anticipated HH Services Anticipated HH Services at Discharge [facility] Needed, TELESALES REPRESENTATIVE, OT, PT and RN.
[2024-03-07] MEDS: QUEtiapine 100 MG TAB PO (20:40)
[2024-03-07] MEDS: Atorvastatin 40 MG TAB 80 MG PO (20:40)
[2024-03-07] MEDS: DULoxetine 20 MG CAP PO (20:41)
[2024-03-07] MEDS: Insulin Glargine 300 UNITS/3 ML PEN 10 UNITS SC (20:44)
[2024-03-08] VITALS (7 sets, daily range): BP systolic 100–135; BP diastolic 48–64; PULSE 72–92; RESP 16–18; TEMP 36.3–37.4; O2SAT 93–97
[2024-03-08] MEDS: oxyCODONE 5 MG/5 ML CUP JT ×4 (02:31→20:25)
[2024-03-08 07:04] LABS: HCT 27.2 % (36.0-46.0); HGB 8.9 g/dL (11.2-15.7); MCH 29.5 pg (27.0-33.0); MCHC 32.7 % (32.0-36.0); MCV 90 fL (80-95); MPV 9.8 fL (8.0-11.0); Platelet Count 137 10^3/uL (130-400); RBC 3.02 10^6/uL (3.93-5.22); RDW 13.9 % (11.7-14.6); RDW-SD 45.1 fL; WBC 6.13 10^3/uL (4.4-10.8)
[2024-03-08 07:27] LABS: ALT 18 U/L (14-59); AST 18 U/L (15-37); Albumin 1.8 g/dL (3.4-5.0); Alkaline Phosphatase 111 U/L (46-116); Anion Gap 5.7 mmol/L (3-11); BUN 13 mg/dL (7-18); Bilirubin, Total 0.38 mg/dL (0.2-1.0); CO2 30.3 mmol/L (21.0-32.0); CREATININE 0.7 mg/dL (0.55-1.02); Calcium 9.1 mg/dL (8.5-10.1); Chloride 105 mmol/L (98-107); Estimated GFR 97.12 (mL/min/1.73m2); Glucose 176 mg/dL (74-106); Potassium 4.4 mmol/L (3.5-5.1); Sodium 141 mmol/L (136-145); Total Protein 5.4 g/dL (6.4-8.2)
[2024-03-08] MEDS: buPROPion 100 MG TAB 300 MG PO (08:52)
[2024-03-08] MEDS: Midodrine 2.5 MG TAB PO (08:53)
[2024-03-08] MEDS: Cholecalciferol (Vitamin D3) 1,000 UNIT TAB 1000 UNITS JT (08:53)
[2024-03-08] MEDS: Insulin Aspart 300 UNITS/3 ML PEN SC ×2 (08:53→17:00)
[2024-03-08] MEDS: Metoprolol CR 25 MG TABCR PO (08:53)
[2024-03-08] MEDS: DULoxetine 30 MG CAP 60 MG PO (08:53)
[2024-03-08] MEDS: Folic Acid 1 MG TAB PO (08:53)
[2024-03-08] MEDS: Normal Saline Flush 10 ML SYR IVP ×2 (09:03→20:14)
--- NOTE | 2024-03-08 12:23 | PGE_ITS ---
Date of Service Date of service: 03/08/24 Time of Service: 12:40 Assessment and Plan Assessment and plan (1) Displaced fracture of right femoral neck: Status: Resolved Assessment and plan: Jennifer is a 63-year-old female who is status post right hip replacement for a subcapital femoral neck fracture. Her course has been complicated by persistent hypotension which has improved. She is making progress physical therapy although still slow with her multiple medical comorbidities as well as persistent anemia. Nevertheless, she is making progress. Unfortunately, she has been declined admission at local care home facilities. This would have been the more optimal discharge route for her. She is going to continue to work with physical therapy on discharge to home. I will see her back at 4 weeks postop. Subjective Subjective Interval history since last seen: Jennifer reports to be making slow improvements. She continues to ambulate with physical therapy. She was able to do some stairs. She still expresses a lack of confidence in doing this at home on her own. Unfortunately, she has been declined admission and any local care home facilities. She does feel better when she has a pain medication on board and her vital signs have remained stable throughout this. There continues to be some issues with vital sign lability and her medications which are being worked on. Exam Narrative Exam Narrative: Sitting up in the chair. No acute distress. Evaluation of the right hip shows clean dry and intact dressing. Resolving ecchymosis. No signs of infection. Minimal pain to hip internal and external rotation. She is able to weakly extend the right knee. Sensation intact to light touch over the femoral sided nerve distributions. Objective Last Vital Signs Temp 37.4 C 03/08/24 11:41 Pulse 76 03/08/24 11:41 Resp 18 03/08/24 11:41 BP 103/56 L 03/08/24 11:41 Pulse Ox 95 03/08/24 11:41 Laboratory Results - last 24 hr 03/07/24 03/07/24 03/07/24 12:15 12:25 12:35 WBC Cancelled 7.82 RBC Cancelled 3.35 L Hgb Cancelled 9.8 L Hct Cancelled 30.6 L MCV Cancelled 91 MCH Cancelled 29.3 MCHC Cancelled 32.0 RDW Cancelled 13.9 Plt Count Cancelled 122 L D MPV Cancelled 10.1 Reticulocyte % (Auto) 2.5 H Sodium 141 Potassium 4.2 Chloride 103 Carbon Dioxide 30.6 Anion Gap 7.4 BUN 12 Creatinine 0.7 Est GFR (CKD-EPI 2020) 97.12 Glucose 135 H Calcium 9.4 Iron 44 L Ferritin 204 Total Bilirubin 0.45 AST 26 ALT 26 Alkaline Phosphatase 93 Total Protein 6.0 L Albumin 2.1 L Vitamin B12 927 Folate > 20.0 H Urine Color Yellow Urine Clarity Clear Urine pH 8.5 H Ur Specific [place] 1.020 Urine Protein Negative Urine Ketones Negative Urine Blood Negative Urine Nitrite Negative Urine Bilirubin Negative Urine Urobilinogen 1.0 H Ur Leukocyte Esterase Negative Urine Glucose 500 H 03/07/24 03/08/24 18:15 06:45 WBC Cancelled 6.13 RBC Cancelled 3.02 L Hgb Cancelled 8.9 L Hct Cancelled 27.2 L MCV Cancelled 90 MCH Cancelled 29.5 MCHC Cancelled 32.7 RDW Cancelled 13.9 Plt Count Cancelled 137 MPV Cancelled 9.8 Reticulocyte % (Auto) Sodium 141 Potassium 4.4 Chloride 105 Carbon Dioxide 30.3 Anion Gap 5.7 BUN 13 Creatinine 0.7 Est GFR (CKD-EPI 2020) 97.12 Glucose 176 H Calcium 9.1 Iron Ferritin Total Bilirubin 0.38 AST 18 ALT 18 Alkaline Phosphatase 111 Total Protein 5.4 L Albumin 1.8 L Vitamin B12 Folate Urine Color Urine Clarity Urine pH Ur Specific [place] Urine Protein Urine Ketones Urine Blood Urine Nitrite Urine Bilirubin Urine Urobilinogen Ur Leukocyte Esterase Urine Glucose Time Spent with Patient Time Spent with Patient: <25 minutes Time was spent: preparing to see the patient(eg.review tests), referring, communicating with other health care transitions nurse and counseling the patient
--- NOTE | 2024-03-08 12:32 | PDOC.CMPRO ---
Date of service: 03/08/24 Time of Service: 11:15 Care Management Progress Note Progress Note Text Progress Note Text: Provider will be consulting with [facility] [place] today, to help Jennifer get on her correct med regime before returning home. Jennifer worked with PT today, and was noted to do very well. She does not have a lot of confidence in herself, however. She feels she is getting stronger, bit by bit, but is still sore, tired and weak. CM discussed with her that she is healing, she will feel tired and sore, but this should improve with time. She will continue to work with PT while inpatient. CM spoke with both Jennifer and Campos. Neither of them would like services. They instead would prefer a referral to outpatient PT at [facility]. They both feel that this is an accessible goal in the next day or 2 once her medications are set. Discharge Potential Discharge Needs: PCP F/U Appt and Surgical F/U Appt Anticipated Barriers to Discharge: None Identified Patient/Family Education Needs: Review discharge instructions, discuss Ask Me Three and Other Plan: Anticipate that Jennifer will return home in the next couple of days with PCP and surgical f/u. She will attend outpatient PT and continue per the plan of care. CM will continue to follow. SDOH(Care Management) Screening Will the Patient Participate in the Screening?: Yes Do you worry about having a steady place to live?: no In the past 12 months, have you had to go without electric, gas, oil or water in your home?: no Have you or anyone in your house had to go without enough food to eat?: no Has lack of transportation kept you from medical appointments or from doing things needed for daily living?: no Has anyone in your support network made you feel unsafe for any reason?: no
--- NOTE | 2024-03-08 13:26 | PT.INTREAT ---
PT Notes Visit Reasons: Hip Fracture Physical Therapy Inpatient Treatment Note Date: 03/08/2024 Precautions: Fall. Standard. WBAT on R LE with AD. Subjective: Despite pain report at 11/16, patient was able to tolerate walking from room to therapy room one way using her walker. Did not have her jello lunch as she did not feel like eating anything by mouthfrom lunch that was offered her. Objective: General Observation: PEG tube feeding temporarily disconnected for session. Telemetry monitoring in place. Mental Status: Alert and oriented as to person, place, time, and purpose. Able to pay attention, focus, and respond appropriately. Pain: As above Vital Signs: WNL Bed Mobility/Transfers: Minimal cueing provided for use of B hands as needed for support, movement sequence, AD management, and posture to reduce fall risk and minimize pain report Sit to stand with stand by assist using B hands for support with minimal cues given for hand placement and trunk positioning for safety-with FWW Stand to sit with stand by assist using B hands for support with minimal cues given for hand placement and trunk positioning for safety with FWW Gait: Instructed patient with level surface ambulation of 200 feet + 200 feet requiring stand by assist using 2WW. Christine improving. Step length and height improving. Minimal verbal cueing given for movement sequence, AD management, limb advancement, and posture. Stairs: Guided patient with negotiation of 2 x 6-inch steps and 3 x 4-inch steps while holding onto B rails for support. Stand by assist provided with cueing given for limb movement sequence to minimize pain report. THERA EX: Trained patient with correct performance of exercises below to maximize motor control, joint flexibility, soft tissue extensibility of the R hip musculature to facilitate return to independent functional mobility performance. Access Code: [email or web address] URL: [email or web address] Date: 03/08/2024 Prepared by: Sangita Luz Exercises - Gluteal Sets - 1 x daily - 7 x weekly - 1 sets - 10 reps - 5 hold - Supine Heel Slide - 1 x daily - 7 x weekly - 1 sets - 10 reps - 5 hold - Supine Ankle Pumps - 1 x daily - 7 x weekly - 1 sets - 10 reps - 5 hold - Seated July - 1 x daily - 7 x weekly - 1 sets - 10 reps - 5 hold - Seated Long Arc Quad - 1 x daily - 7 x weekly - 1 sets - 10 reps - 5 hold Balance: Static Sitting: Normal Dynamic Sitting: Normal Static Standing: Fair Dynamic Standing: Fair ASSESSMENT: Beginning to work through pain with increased distance walked and improved level of independence seen this afternoon. Will continue to work with nurse for pre-medication for pain. Patient able to move a lot safe and easier when pain level is managed well. PLAN: Continue with exercise, strength, and mobility progression to achive safest functional level i nanticipation of discharge to home when safe DISCHARGE RECOMMENDATIONS: [] Home with no services [] [] Home with services [] Home with outpatient PT [] [] SNF for continued rehabilitation [] [] [facility] [] [] SNF versus LTC based on ability to participate and progress [] [X] Short-term rehab vs. HH PT TREATMENT CODE/TIME: 66167 x 15 minutes for 1 unit, 94596 x 13 minutes for 1 unit (13:26-13:54).
--- NOTE | 2024-03-08 14:02 | W.PM.PROGNOT ---
Date of Service Date of service: 03/08/24 Time of Service: 14:02 Assessment and Plan Assessment and plan (1) Acute blood loss anemia: Start date: 03/07/24 Status: Acute Assessment and plan: Patient did have postoperative bleeding with 1 unit of packed red blood cells given postoperatively now with slowly increasing hemoglobin on enteral iron supplement through her PEG tube. She may need more nutritional supplements as she recovers from her postoperative bleed. She also may have chronic anemia with chronic disease and variable nutrition. Continue to monitor on supplement. This is stable and improving. (2) Hypotension: Status: Resolved Assessment and plan: Patient had postoperative hypotension which may have been a combination of blood loss and anesthesia, now recovered. Restarted metoprolol and if t continues to tolerate, will reinitiate Entresto either at half dose or full dose after reviewing with the patient's windows admin at [facility]. Midodrine will be discontinued before restarting Entresto. Qualifiers: Hypotension type: hypotension due to drug Qualified Code(s): I95.2 - Hypotension due to drugs (3) HFrEF (heart failure with reduced ejection fraction): Status: Chronic Assessment and plan: Reinitiate metoprolol and Entresto as tolerated. Follow-up with cardiology at [facility]. (4) PEG (percutaneous endoscopic gastrostomy) status: Status: Chronic Assessment and plan: Patient needs dressing changes every other day or daily if needed as per . Continue gastrostomy feeds with patient having esophageal stricture. (5) Vitamin D deficiency: Status: Chronic Assessment and plan: Continue supplement and increase dose of 10,000 national units daily and follow-up levels long-term. (6) Displaced fracture of right femoral neck: Status: Resolved Assessment and plan: Continue to monitor with orthopedic follow-up postoperatively. Patient will receive physical therapy while in this hospital. Long-term treatment to return home with her without home services and outpatient physical therapy. Subjective Subjective Interval history since last seen: This is a 63-year-old lady who is slowly improving with PEG tube feedings but mostly being in bed at this time with her baseline being up and walking. She is status post right hip repair and her does want her to have outpatient physical therapy rather than home health physical therapy which is reasonable. He thinks she will have quicker gain of her strength and she is on board with this as well. The orthopedist said that she can still use some rehabilitation before home and we are still adjusting her heart failure medicines watching for hypotension. She is not feeling dizzy and we have discussed splitting her dose of metoprolol to 12.5 mg metoprolol tartrate since this can be crushed and more reliably absorbed. I did put a call out to her windows admin, Dr. Hernandez at [facility] will return my call and guide our therapy as we advance her medical therapy for heart failure. She has a history of atrial flutter but not fibrillation and had an episode of hypotension postoperatively which she has had in the past which was a response to anesthesia. She is on midodrine which will be eventually weaned as we reintroduce metoprolol and Entresto. Patient will be returning home at discharge. Exam Narrative Exam Narrative: General: Patient appears older than stated age, flattened affect but normal eye contact and conversation. Obese. She is alert and oriented x 3 and in no acute distress. HEENT: Normocephalic, coarsened facial features, eyes with pupils equal and reactive to light directly, extraocular movement intact and sclera anicteric. Oropharynx with moist mucosa and fair dentition. Neck: Supple without JVD. Back: Kyphotic without CVA tenderness. Lungs: Aeration, clear to auscultation and percussion with no focalizing rales rhonchi. No expiratory wheeze. Heart: Normal rate and rhythm, no murmurs or gallops appreciated. Abdomen: Obese contour, soft and nontender to palpation no palpable hepatosplenomegaly. PEG tube is in place with odiferous dressing which was changed and washed. Extremities: 2+ nonpitting edema right leg with well-healed incisional scar right hip, no pitting edema left leg, no cyanosis or clubbing. Good cap refill. Skin: Pale, warm and dry. Neuro: Cranial nerves II to XII is intact, no focalized motor deficits. No tremor. Psych: Flattened affect with depressed mood. No normal thought processes. Remote and recent memory grossly intact. Objective Last Vital Signs Temp 37.4 C 03/08/24 11:41 Pulse 76 03/08/24 11:41 Resp 18 03/08/24 11:41 BP 103/56 L 03/08/24 11:41 Pulse Ox 95 03/08/24 11:41 Laboratory Results - last 24 hr 1003/07/24 03/08/24 12:15 18:15 06:45 WBC Cancelled Cancelled 6.13 RBC Cancelled Cancelled 3.02 L Hgb Cancelled Cancelled 8.9 L Hct Cancelled Cancelled 27.2 L MCV Cancelled Cancelled 90 MCH Cancelled Cancelled 29.5 MCHC Cancelled Cancelled 32.7 RDW Cancelled Cancelled 13.9 Plt Count Cancelled Cancelled 137 MPV Cancelled Cancelled 9.8 Sodium 141 Potassium 4.4 Chloride 105 Carbon Dioxide 30.3 Anion Gap 5.7 BUN 13 Creatinine 0.7 Est GFR (CKD-EPI 2020) 97.12 Glucose 176 H Calcium 9.1 Total Bilirubin 0.38 AST 18 ALT 18 Alkaline Phosphatase 111 Total Protein 5.4 L Albumin 1.8 L Time Spent with Patient Time Spent with Patient: 35-49 minutes Time was spent: preparing to see the patient(eg.review tests), obtaining and/or reviewing separately otained hiistory, ordering medications,tests, procedures, indepentently interpreting results, counseling the patient and care coordination
[2024-03-08] MEDS: Cholecalciferol (Vitamin D3) 1,000 UNIT TAB 10000 UNITS JT (15:08)
[2024-03-08] MEDS: Metoprolol 12.5 MG TAB NG ×2 (15:08→20:12)
[2024-03-08] MEDS: Acetaminophen Solution 650 MG/20.3 ML CUP 1000 MG PO (17:06)
[2024-03-08] MEDS: Atorvastatin 40 MG TAB 80 MG PO (20:12)
[2024-03-08] MEDS: QUEtiapine 100 MG TAB PO (20:12)
[2024-03-08] MEDS: DULoxetine 20 MG CAP PO (20:12)
[2024-03-08] MEDS: Insulin Glargine 300 UNITS/3 ML PEN 10 UNITS SC (20:37)
[2024-03-08] MEDS: oxyCODONE 5 MG/5 ML CUP PO (23:30)
[2024-03-08] MEDS: Ondansetron O.D.T. 4 MG TABEF 8 MG UD (23:30)
[2024-03-09] VITALS (9 sets, daily range): BP systolic 98–163; BP diastolic 48–137; PULSE 63–71; RESP 14–20; TEMP 36–37; O2SAT 92–98
[2024-03-09] MEDS: Metoprolol 12.5 MG TAB NG ×4 (02:37→20:30)
[2024-03-09] MEDS: Acetaminophen Solution 650 MG/20.3 ML CUP 1000 MG PO ×2 (03:22→17:29)
[2024-03-09] MEDS: Cholecalciferol (Vitamin D3) 1,000 UNIT TAB 10000 UNITS JT (08:34)
[2024-03-09] MEDS: buPROPion 100 MG TAB 300 MG PO (08:34)
[2024-03-09] MEDS: DULoxetine 30 MG CAP 60 MG PO (08:36)
[2024-03-09] MEDS: Folic Acid 1 MG TAB PO (08:37)
[2024-03-09] MEDS: Normal Saline Flush 10 ML SYR IVP ×2 (08:38→20:29)
[2024-03-09] MEDS: Insulin Aspart 300 UNITS/3 ML PEN SC ×3 (08:39→17:30)
--- NOTE | 2024-03-09 10:45 | PTTR_ITS ---
Date of service: 03/08/24 Time of Service: 10:30 (am) PT Notes Visit Reasons: Hip Fracture Date: 03/08/2024 PRECAUTIONS: Fall. Standard. WBAT on R LE with AD. SUBJECTIVE: Pt in recliner when approached for therapy this morning, pt reports pain at 9/10 sitting prior to pain meds, colin subsided to 7/10 after an hour and was agreeable to participating with therapy session. OBJECTIVE: ? PEG tube feeding temporarily disconnected for session. Telemetry monitoring in place. ? PAIN: 9/10 prior to pain med, 7/10 after an hour taking pain meds VITALS: closely monitored by nursing ? Therapeutic Activities 33127: Direct one-on-one instruction in dynamic activities to improve functional performance. ?? BED MOBILITY/TRANSFERS? Sit-stand: ? ?Min A? Stand-sit: ?? CGA? Bed-Chair:? ? Min A? Chair-bed: Min A Provided skilled cues and instruction on performance and technique throughout. Gait Training 29845: Direct one-on-one instruction and skilled instruction in: Employing an assistive device Modified weight-bearing status Movement sequencing Turning and movement with proper form Provided verbal cues for equipment management and technique Provided instruction in gait pattern Patient education regarding pacing and breathing techniques to maximize activity tolerance? GAIT? Assistive Device: ?? ?FWW ? Weight bearing: WBAT Assist: ?SBA? Distance:?? ?150'x2? Deviation: Step length and height improving. Minimal verbal cueing given for movement sequence, AD management, limb advancement, and posture. Stairs: Guided patient with negotiation of 4 x 6-inch while holding onto B rails for support. Stand by assist provided with cueing given for limb movement sequence to minimize pain report. ? Neuromuscular Re- education 16198: Activities that facilitate re-education of movement balance, posture, coordination, and proprioception or kinesthetic sense, requiring skilled tactile and verbal cues Exercises/techniques: ?Dynamic standing balance activity doing 360degree turns inside the toilet, side stepping in tight quarters, sit to stand from low toilet seat using handrails for support.??? ASSESSMENT:?pt tolerated activity well. did not complain of pain increase post session. PLAN: Continue with balance training, global strengthening and general conditioning for improved safety, mobility and activity tolerance until pt is ready for DC. TREATMENT CODE/TIME: 72376r1, 15170x6 25mins (10:30-10:55am)
--- NOTE | 2024-03-09 10:56 | PTTR_ITS ---
PT Notes Visit Reasons: Hip Fracture Date: 03/09/2024 PRECAUTIONS: Fall. Standard. WBAT on R LE with AD. SUBJECTIVE: Pt in recliner when approached for therapy this morning, pt reports 7/10 for pain seated, pt request to use the toilet prior to starting with therapy OBJECTIVE: Telemetry monitoring in place. ? PAIN: VITALS: closely monitored by nursing ? Therapeutic Activities 21290: Direct one-on-one instruction in dynamic activities to improve functional performance. ?? BED MOBILITY/TRANSFERS? Sit-stand: ? ? CGA? Stand-sit: ?? CGA? Bed-Chair:? ? CGA? Chair-bed: CGA Provided skilled cues and instruction on performance and technique throughout. Gait Training 32357: Direct one-on-one instruction and skilled instruction in: Employing an assistive device Modified weight-bearing status Movement sequencing Turning and movement with proper form Provided verbal cues for equipment management and technique Provided instruction in gait pattern Patient education regarding pacing and breathing techniques to maximize activity tolerance? GAIT? Assistive Device: ?? ?FWW ? Weight bearing: WBAT Assist: ?SBA? Distance:?? ?250'x2? Deviation: Step length and height improving. Minimal verbal cueing given for movement sequence, AD management, limb advancement, and posture. Stairs: Guided patient with negotiation of 4 x 6-inch while holding onto B rails for support. Stand by assist provided with cueing given for limb movement sequence to minimize pain report. ? Neuromuscular Re- education 36747: Activities that facilitate re-education of movement balance, posture, coordination, and proprioception or kinesthetic sense, requiring skilled tactile and verbal cues Exercises/techniques: ?Dynamic standing balance activity doing 360degree turns inside the toilet, side stepping in tight quarters, sit to stand from low toilet seat using handrails for support.??? ASSESSMENT:?pt tolerated activity well. no complain of pain increase post session. setup A for positioning in recliner for alignment, safety, call marshall and bedside table for pt access post session. PLAN: Continue with balance training, global strengthening and general conditioning for improved safety, mobility and activity tolerance until pt is ready for DC. TREATMENT CODE/TIME: 55168i3, 36404j4 25mins (10:15-10:40am)
--- NOTE | 2024-03-09 14:56 | PTTR_ITS ---
PT Notes Visit Reasons: Hip Fracture Date: 03/09/2024 PRECAUTIONS: Fall. Standard. WBAT on R LE with AD. SUBJECTIVE: Pt in recliner when approached for therapy this afternoon, pt expressed that she needs to go to the toilet upon arrival of this therapist, pt was PEG tube feeding was currently on for a 6 hour feed, tube was leaking when this therapist arrived in pt room and made a spill on the floor requiring nursing to reconnect and clean pt prior to therapy session. OBJECTIVE: Telemetry monitoring in place. ? PAIN: 11/16 VITALS: closely monitored by nursing ? Therapeutic Activities 03775: Direct one-on-one instruction in dynamic activities to improve functional performance. ?? BED MOBILITY/TRANSFERS? Sit-stand: ? ? CGA? Stand-sit: ?? CGA? Bed-Chair:? ? CGA? Chair-bed: CGA Provided skilled cues and instruction on performance and technique throughout. Gait Training 58918: Direct one-on-one instruction and skilled instruction in: Employing an assistive device Modified weight-bearing status Movement sequencing Turning and movement with proper form Provided verbal cues for equipment management and technique Provided instruction in gait pattern Patient education regarding pacing and breathing techniques to maximize activity tolerance? GAIT? Assistive Device: ?? ?FWW ? Weight bearing: WBAT Assist: ?SBA? Distance:?? ?300' Standing rest break every 100'? Deviation: Step length and height improving. Minimal verbal cueing given for movement sequence, AD management, limb advancement, and posture. ? Neuromuscular Re- education 55076: Activities that facilitate re-education of movement balance, posture, coordination, and proprioception or kinesthetic sense, requiring skilled tactile and verbal cues Exercises/techniques: ?Dynamic standing balance activity doing 360degree turns inside the toilet, side stepping in tight quarters, sit to stand from low toilet seat using handrails for support.??? ASSESSMENT:?pt refused stairs this afternoon reporting she is very tired and would like to go to bed after gait training, pt bed mobility side scooting supervision, min A with LE elevation to get centered in bed, upward movement in bed setup A for bed orientation to facilitate movement, setup A for body alignment, pillow prop and LE elevation for comfort and safety while in bed. PLAN: Continue with balance training, global strengthening and general conditioning for improved safety, mobility and activity tolerance until pt is ready for DC. TREATMENT CODE/TIME: 62342w3, [id number] 35mins (2:15-10:40am)
--- NOTE | 2024-03-09 16:10 | CMPROGNOTE_ITS ---
Date of service: 03/09/24 Time of Service: 12:44 Care Management Progress Note Progress Note Text Progress Note Text: Jennifer was sitting up in the chair when CM met with her. She stated that she is doing better, but still has some pain, especially with ambulation. Campos was also present. The pair feel that Jennifer will be able to do the stairs into their home, as does PT. They would like outpatient PT. [facility] ph [phone], f [phone]. There is no problem with weekend discharge. Nery is requesting the most updated progress, labs and nutrition note be faxed on Wednesday, even if not being discharged, and we can send the d/c summary once she does discharge. If there are no changes in the formula order, provider can put in the d/c summary resume tube feeds as prior to admission. If there are changes, new orders will have to be placed. Discharge Potential Discharge Needs: PCP F/U Appt and Surgical F/U Appt (ortho) Anticipated Barriers to Discharge: None Identified Patient/Family Education Needs: Review discharge instructions, discuss [facility] Me [employer] Transportation: Private vehicle (with , Campos) Plan: Anticipate that Jennifer will return home in the next couple of days with PCP and ortho f/u. She will also f/u with her traveling electrician. She will attend outpatient PT and continue per the plan of care. CM will continue to follow. SDOH(Care Management) Screening Will the Patient Participate in the Screening?: Yes Do you worry about having a steady place to live?: no In the past 12 months, have you had to go without electric, gas, oil or water in your home?: no Have you or anyone in your house had to go without enough food to eat?: no Has lack of transportation kept you from medical appointments or from doing things needed for daily living?: no Has anyone in your support network made you feel unsafe for any reason?: no
[2024-03-09] MEDS: oxyCODONE 5 MG/5 ML CUP JT (17:27)
[2024-03-09] MEDS: Ondansetron O.D.T. 4 MG TABEF 8 MG UD (17:34)
--- NOTE | 2024-03-09 19:31 | W.PC.ACHO ---
Registration Status: Primary Language: Preferred Language: ED Information & Data Chief Complaint Trauma 02/29/24 21:23 Triage Note fall with head strike to 02/29/24 15:12 floor, right hip pain with shortening of right leg, was on floor x1 hour Medical / Surgical History (Last Reviewed 03/01/24 @ 05:38 by Gt Mills MD) Esophageal stricture Chronic systolic (congestive) heart failure Aspiration pneumonia Stress-induced cardiomyopathy Acute cardiogenic pulmonary edema Acute metabolic encephalopathy Bilateral pneumonia Hypokalemia Closed fracture of neck of left femur Constipation Diabetes mellitus type 2 in obese Chronic iron deficiency anemia ETOH abuse Poorly controlled diabetes mellitus Chronic pancreatitis due to acute alcohol intoxication Alcohol abuse History of pilonidal cyst Anxiety (Last Reviewed 03/01/24 @ 05:38 by Gt Mills MD) History of total left hip arthroplasty (01/19/23) S/P laparoscopic procedure S/P surgical removal of pilonidal cyst History of esophagogastroduodenoscopy (EGD) (~06/10/21) History of colonoscopy with polypectomy (~06/10/21) History of hysterectomy History of tonsillectomy History of section Most Recent Vital Signs Temperature 37.0 C 03/09/24 14:53 Temperature Source Temporal Artery Scan 03/09/24 14:53 Pulse 69 03/09/24 14:53 Pulse Rhythm Irregular 02/29/24 22:26 Pulse 81 03/04/24 15:06 Respiratory Rate 18 03/09/24 14:53 Respiratory Effort Labored, Incrsd Work of Breathing 03/02/24 01:30 Respiratory Depth Deep 03/02/24 01:30 Respiratory Pattern Normal 03/02/24 01:30 Blood Pressure 98/60 L 03/09/24 14:53 Blood Pressure Mean 85 03/04/24 15:06 Pulse Oximetry 97 03/09/24 14:53 Respiratory End-tidal CO2 30 03/01/24 17:55 Oxygen Delivery Method Room Air 03/09/24 14:53 Oxygen Flow Rate 0 03/09/24 14:53 Pain Level 8 03/09/24 17:30 Comment Nurse notified 03/08/24 22:46 Comment by prior shift 03/04/24 04:36 Allergies metformin Adverse Reaction (Unknown, Verified 02/29/24 15:15) Diarrhea meperidine Adverse Reaction (Verified 02/29/24 15:15) gi upset Active Medications Generic Name Dose Route Start Last Admin Trade Name Freq PRN Reason Stop Dose Admin Acetaminophen 1,000 mg 02/29/24 21:53 03/09/24 17:29 Acetaminophen Solution 650 Mg/20.3 Ml Cup PO 1,000 mg Q8H PRN PRN Administration Atorvastatin Calcium 80 mg 02/29/24 22:00 03/08/24 20:12 Atorvastatin 40 Mg Tab PO 80 mg QPM LAZARUS Administration Bupropion HCl 300 mg 03/01/24 08:30 03/09/24 08:34 Bupropion 100 Mg Tab PO 300 mg DAILY LAZARUS Administration Cholecalciferol 10,000 units 03/08/24 15:00 03/09/24 08:34 Cholecalciferol (Vitamin D3) 1,000 Unit Tab JT 10,000 units DAILY LAZARUS Administration Duloxetine HCl 60 mg 03/01/24 08:30 03/09/24 08:36 Duloxetine 30 Mg Cap PO 60 mg DAILY LAZARUS Administration Duloxetine HCl 20 mg 03/01/24 20:00 03/08/24 20:12 Duloxetine 20 Mg Cap PO 20 mg HS LAZARUS Administration Empagliflozin 10 mg 03/01/24 08:30 03/02/24 08:21 Empaglifozin 10 Mg Tab PO 10 mg DAILY LAZARUS Administration Esomeprazole Magnesium 40 mg 03/08/24 06:00 03/09/24 05:51 Esomeprazole Oral Suspension 40 Mg Pkt JT 40 mg DAILY@0600 LAZARUS Administration Ferrous Sulfate 300 mg 03/01/24 08:30 03/09/24 08:32 Ferrous Sulfate 75 Mg/Ml 50 Ml Btl UD 300 mg Q48H LAZARUS Administration Folic Acid 1 mg 03/01/24 08:30 03/09/24 08:37 Folic Acid 1 Mg Tab PO 1 mg DAILY LAZARUS Administration Hydromorphone HCl 0.5 mg 03/01/24 18:27 03/06/24 21:36 Hydromorphone 1 Mg/Ml Syr IVP 0.5 mg Q2H PRN PRN Administration Insulin Aspart 0 - 18 units 03/01/24 08:00 03/09/24 17:30 Insulin Aspart 300 Units/3 Ml Pen SC 2 units 0800,1200,1700 LAZARUS Administration Protocol Insulin Glargine 10 units 02/29/24 22:00 03/08/24 20:37 Insulin Glargine 300 Units/3 Ml Pen SC 10 units HS LAZARUS Administration Metoprolol Tartrate 12.5 mg 03/08/24 14:00 03/09/24 13:29 Metoprolol 12.5 Mg Tab NG 12.5 mg Q6H LAZARUS Administration Ondansetron HCl 8 mg 02/29/24 23:46 03/09/24 17:34 Ondansetron O.D.T. 4 Mg Tabef UD 8 mg Q8H PRN PRN Administration Oxycodone HCl 5 - 10 mg 03/08/24 22:57 03/09/24 17:27 Oxycodone 5 Mg/5 Ml Cup JT 5 mg Q6H PRN PRN Administration Quetiapine Fumarate 100 mg 03/04/24 20:00 03/08/24 20:12 Quetiapine 100 Mg Tab PO 100 mg HS LAZARUS Administration Sacubitril/Valsartan 1 each 03/01/24 20:00 03/01/24 20:52 Sacubitril/Valsartan 24 Mg/26 Mg Tab JT 1 each BID LAZARUS Administration Sodium Chloride 0 ml 02/29/24 19:32 03/06/24 13:44 Normal Saline Flush 10 Ml Syr IVP 10 ml PRN PRN Administration Sodium Chloride 0 ml 02/29/24 20:00 03/09/24 08:38 Normal Saline Flush 10 Ml Syr IVP 10 ml BID LAZARUS Administration Valproic Acid 300 mg 03/01/24 08:30 03/09/24 13:29 Valproic Acid Oral Solution 250 Mg/5 Ml Cup PO 300 mg TID LAZARUS Administration IV IV Catheter Type [Right Mid-line Peripheral Line Midline] IV Catheter Type [Left Wrist] Saline Lock IV Catheter Type [Left Peripheral IV Antecubital] IV Catheter Type [Left Upper Saline Lock arm] IV Catheter Gauge [Left Wrist] 20 IV Catheter Gauge [Left 20 Antecubital] IV Catheter Gauge [Left Upper 20 arm] [id number] Documentation Fingerstick Glucose Start: 02/29/24 19:50 Freq: .ACHS Status: Active Protocol: Activity Type Activity Date Activity User E-sign Co-sign Detail Recorded Client Recorded Date Recorded By Document 03/09/24 16:34 HELDER SRIVASTAVA(10) [id number] 03/09/24 16:34 HELDER SRIVASTAVA(10) Intake and Output - 24 Hour Total 02/29/24 15:00 thru 03/09/24 18:12 Intake Total 26288.229 Output Total 7495 Balance 4485.229 Weight 67.8 kg Intake: IV 4642.229 Oral 810 Blood Product 700 Rbc Leuko Reduced Unit 700 [id number] Intake, Tube Feeding Amount 5828 Output: Urine 6915 Estimated Blood Loss 550 Output, Residual 30 Other: Urine Color Yellow Urine Appearance Clear Urine Odor Normal Comment incontinent and void in BSC. Stool Size Small Stool Characteristics Soft Liquid Green Emesis Description None Urinary Catheter Urinary Catheter Date of 03/01/24 Insertion [Urethral (Mcrae)] Time of insertion [Urethral ( 17:40 Mcrae)] Falls Risk Assessment History of Falls Previous History 03/02/24 01:30 Contributing Factors Confusion,Unstable, 03/02/24 01:30 Impairments,Medications Ambulatory Aids Uses ambulatory device + 03/02/24 01:30 Tubes/Lines With any additional score 03/02/24 01:30 Gait Evaluation W/any additional score 03/02/24 01:30 Cognition Cognitive impairment 03/02/24 01:30 Fall Total Score 112 03/02/24 01:30 Level of Risk Maximum Risk 03/02/24 01:30 Problems (Last Reviewed 03/01/24 @ 05:38 by Gt Mills MD) Vitamin D deficiency (Chronic) Acute blood loss anemia (Acute) History of total right hip replacement (Acute 03/01/24) HFrEF (heart failure with reduced ejection fraction) (Chronic) Bronchiolitis (Acute) PEG (percutaneous endoscopic gastrostomy) status (Chronic) 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) Bipolar 1 disorder (Chronic) Notes 03/07/24 16:10 (created 03/07/24 19:24) Nursing Notes by Ellie Washburn Nursing Note: 1322-Dr. Denney made aware pt was nauseous all morning and refused her feeds and her residual was >200, asked MD about parameters for holding feeds, per MD do not need to check residual. Pt stated she felt well enough for her feeds and asked to start them, feeds started at 1605 per pt request. Initialized on 03/07/24 19:24 - END OF NOTE 03/07/24 12:14 Nursing Notes by Ellie Washburn Nursing Note: Pt states I want to try to eat my tray and if I dont feel well I dont want my tube feed. TF remains on hold per pt request. Initialized on 03/07/24 12:14 - END OF NOTE 03/07/24 09:30 (created 03/07/24 19:23) Nursing Notes by Ellie Washburn Nursing Note:0916-Dr. Denney made aware pt had 6bt run of vtach, vss. No new orders at that time. Initialized on 03/07/24 19:23 - END OF NOTE 03/07/24 08:03 Nursing Notes by Ellie Washburn Nursing Note: Pt vomiting, tube feeds held at this time, will CTM. Initialized on 03/07/24 08:03 - END OF NOTE 03/02/24 06:09 Nursing Notes by Symone Bautista Nursing Note: At 1956 patient awakened, trying to get out of bed. Patient is very confused, hyperventilating, vital signs were taken, notified charge nurse. BISQUE CLEANER and other nurse came in the room. Patient heart rate increased to 139 bpm, bp 98/66 , O2 98% on 2L nasal via canula. Called respiratory therapies,and arrived in patient's room. After ~ 5 minutes patient started to relax, vital sign HR 105, BP 98/65, 20 RR, Temp 36, 98% 2L nasal cannula. Patient went back to sleep. Will continue monitor. At 22:30 Patient BP decreased. Patient becomes hypotensive, BP 88/57, heart rate unchanged, 15 RR, O2 98%. Notified charge nurse. Patient BP continue to decrease 60's systolic with other vital signs unchanged. Notified provider. Provider assessing the patient. Provider order bolus of NS 1000 ml, ECG, and CBC. Patient on tendrelenburg position, bolus infused, check vital sign, BP slighly impove 82/54 manually taken. After a few minutes BP went back down again to 60s systolic. Provider transferred patient to ICU. Initialized on 03/02/24 06:09 - END OF NOTE 03/02/24 01:05 Nursing Notes by Win Kay Called and updated on pt status. Verbal consent for blood transfusion obtained via telephone. Provider also consulted by this RN HS to transfer pt to ICU for higher level of care. 's questions asked and answered. He reported only to call if emergency tonight, otherwise he will be in to see her in the morning. I relayed to [facility] CC and ICU staff. Pt reported she takes all meds crushed in feeding tube, as it was reported by nursing staff there was some confusion if this was done at home. reported all meds via tube. did not have any further questions and advised to call if he would like an update over night: Initialized on 03/02/24 01:05 - END OF NOTE 03/01/24 19:41 Nursing Notes by Ellie Washburn Nursing Note: Pt arrived back to unit from PACU at 1807. A&Ox4, VSS on 2LNC, medicated for pain and nausea per MAR. Initialized on 03/01/24 19:41 - END OF NOTE 03/01/24 14:19 Nursing Notes by Ellie Washburn Nursing Note: Pt down in PACU at 1410. Initialized on 03/01/24 14:19 - END OF NOTE 03/01/24 14:18 Respiratory by Aleshia Mattson 03/01/24 Pt states she wears 2L NC at night through [employer]. Pt states she has never had a sleep study or CPAP. Pt states her told her doctor that she snores during sleep and her doctor prescribed Oxygen. Initialized on 03/01/24 14:18 - END OF NOTE 03/01/24 14:00 (created 03/01/24 20:04) Nursing Notes by Ellie Washburn Nursing Note: Spoke with Bette in pharm in AM meeting who was working on figuring out pts celebrex orders as well as iron drops. Bette called this RN at 1155 and stated give pt 4mL of iron drops. Given per JUL. Initialized on 03/01/24 20:04 - END OF NOTE v v v v v v v v v Sending and/or Receiving Nurses: Please use comment section below to note any information pertinent to the patient hand-off not included above. Information / Comments: Report provided to CAROLEE Monk Report received from:
[2024-03-09] MEDS: Insulin Glargine 300 UNITS/3 ML PEN 10 UNITS SC (20:29)
[2024-03-09] MEDS: DULoxetine 20 MG CAP PO (20:30)
[2024-03-09] MEDS: QUEtiapine 100 MG TAB PO (20:30)
[2024-03-09] MEDS: Atorvastatin 40 MG TAB 80 MG PO (20:30)
--- NOTE | 2024-03-09 23:54 | PGE_ITS ---
Date of Service Date of service: 03/09/24 Time of Service: 23:54 Assessment and Plan Assessment and plan (1) Acute blood loss anemia: Start date: 03/07/24 Status: Acute Assessment and plan: Patient did have postoperative bleeding with 1 unit of packed red blood cells given postoperatively now with slowly increasing hemoglobin on enteral iron supplement through her PEG tube. She may need more nutritional supplements as she recovers from her postoperative bleed. She also may have chronic anemia with chronic disease and variable nutrition. Continue to monitor on supplement. This is stable and improving with no need for acute interventions. (2) Hypotension: Status: Resolved Assessment and plan: Patient had postoperative hypotension which may have been a combination of blood loss and anesthesia, now recovered. Restarted metoprolol and if t continues to tolerate, will reinitiate Entresto at half of her usual tablet twice daily with midodrine discontinued and metoprolol continuing at same dose of 12.5 mg every 6 hours to be returned to 25 mg succinate formulation twice daily at discharge. Midodrine has been discontinued. Qualifiers: Hypotension type: hypotension due to drug Qualified Code(s): I95.2 - Hypotension due to drugs (3) HFrEF (heart failure with reduced ejection fraction): Status: Chronic Assessment and plan: Reinitiated metoprolol and Entresto to start and adjusted to usual dose as tolerated. [place] [facility] (4) PEG (percutaneous endoscopic gastrostomy) status: Status: Chronic Assessment and plan: Patient needs dressing changes every other day or daily if needed as per . Continue gastrostomy feeds with patient having esophageal stricture. (5) Vitamin D deficiency: Status: Chronic Assessment and plan: Continue supplement and increase dose of 10,000 national units daily and follow- up levels long-term. (6) Displaced fracture of right femoral neck: Status: Resolved Assessment and plan: Continue to monitor with orthopedic follow-up postoperatively. Patient will receive physical therapy while in this hospital. Long-term treatment to return home with her without home services and outpatient physical therapy. Subjective Subjective Interval history since last seen: This is a 63-year-old lady who is slowly improving with PEG tube feedings but mostly being in bed at this time with her baseline being up and walking. She is status post right hip repair and her does want her to have outpatient physical therapy rather than home health physical therapy which is reasonable. He thinks she will have quicker gain of her strength and she is on board with this as well. The orthopedist said that she can still use some rehabilitation before home and we are still adjusting her heart failure medicines watching for recurrent hypotension. She is not feeling dizzy splitting her dose of metoprolol to 12.5 mg metoprolol tartrate since this can be crushed and more reliably absorbed. I did reach and discussed the case with Dr. Hernandez [place] [facility] who agrees with reinitiating metoprolol but the succinate form regimen can be crushed and she will return to that prior to discharge once on stable dose. She agreed with reinitiation of her medical therapy for heart failure with Entresto to be given at a low dose or half of the low-dose as blood pressure allows to avoid loss of improved left ventricular ejection fraction. She has a history of atrial flutter did have a short burst of PSVT on metoprolol. Her midodrine was discontinued today and Entresto will be started at half of her low-dose twice daily advancing as tolerated prior to discharge. This can be further adjusted by her body trimmer upholsterer as an outpatient. Patient will be returning home at discharge. Exam Narrative Exam Narrative: General: Patient appears older than stated age, flattened affect but normal eye contact and conversation. Obese. She is alert and oriented x 3 and in no acute distress. HEENT: Normocephalic, coarsened facial features, eyes with pupils equal and reactive to light directly, extraocular movement intact and sclera anicteric. Oropharynx with moist mucosa and fair dentition. Neck: Supple without JVD. Back: Kyphotic without CVA tenderness. Lungs: Normal aeration, clear to auscultation and percussion with no focalizing rales rhonchi. No expiratory wheeze. Heart: Normal rate and rhythm, no murmurs or gallops appreciated. No ectopy detected. Abdomen: Obese contour, soft and nontender to palpation no palpable hepatosplenomegaly. PEG tube is in place with odiferous dressing which was changed and washed. Extremities: 1-less 2+ nonpitting edema right leg with well-healed incisional scar right hip, no pitting edema left leg, no cyanosis or clubbing. Good cap refill. Skin: Pale, warm and dry. Neuro: Cranial nerves II to XII is intact, no focalized motor deficits. No tremor. Psych: Flattened affect with less depressed mood. No abnormal thought processes. Remote and recent memory grossly intact. Objective Last Vital Signs Temp 36.7 C 03/09/24 23:05 Pulse 70 03/09/24 23:05 Resp 20 03/09/24 23:05 BP 110/48 L 03/09/24 23:05 Pulse Ox 98 03/09/24 23:05 Time Spent with Patient Time Spent with Patient: 25-34 minutes Time was spent: preparing to see the patient(eg.review tests), obtaining and/or reviewing separately otained hiistory, ordering medications,tests, procedures, referring, communicating with other health health care recruiter, indepentently interpreting results and care coordination
[2024-03-10] MEDS: Metoprolol 12.5 MG TAB NG ×2 (02:00→08:02)
[2024-03-10 02:07] VITALS: BP 122/54
[2024-03-10] MEDS: oxyCODONE 5 MG/5 ML CUP JT (02:26)
[2024-03-10 07:27] VITALS: BP 123/54; PULSE 80; RESP 14; TEMP 37.1; O2SAT 96
[2024-03-10] MEDS: Cholecalciferol (Vitamin D3) 1,000 UNIT TAB 10000 UNITS JT (08:01)
[2024-03-10] MEDS: buPROPion 100 MG TAB 300 MG PO (08:02)
[2024-03-10] MEDS: DULoxetine 30 MG CAP 60 MG PO (08:02)
[2024-03-10] MEDS: Folic Acid 1 MG TAB PO (08:03)
--- NOTE | 2024-03-10 08:53 | W.NUTRFU ---
Date of service: 03/10/24 Time of Service: 08:53 Nutrition Note NOTE: Discharge anticipated soon for Jennifer. Jennifer's weight has been relatively stable this admission with some discrepancies between standing and bedscale noted. Moved her bowels yesterday twice. Denies nausea and acute diarrhea (had stool yesterday more liquids and also one formed stool). Albumin and total protein remain depressed (1.8 and 5.4 respectively). Current estimated energy needs still remain in the 1600 calorie range (1695 at 25kcal per kg), protein: about 80grams, fluid: 1695mL. She is still tolerating Jevity 1.5 enteral formula run at 92mL/Hr for a daily 12 hour feeding cycle. Her esophagial stricture poses a barrier to oral intake, but she is able to take po thin fluids and it is recommended she continue to aim to meet the remainder of her fluid needs (about 700mL) via po after considering what she receives via enteral feedings and flushes (845 from formula and 120+ from flushes/med administration - about 1,000mL) Any comparable fiber-containing 1.5kcal/mL enteral formula would be appropriate after discharge. Recommendations: -Continue to monitor glucose and adjust insulin therapy accordingly, especially with any changes to enteral feeding regimen/rate. -Recommend continue vitamin D3 supplementation with repeat lab work to assess repletion -If Jennifer would like more free time away from her feeding pump, she may consider working with provider in altering her feeding regimen to bolus feeds/shorter feeds with increasing volume to have extended breaks. -Recommend re-assessing her enteral feeding rate/cycle at least every 6 months or with any changes. Time Spent in Nutritional Counseling and Treatment: 10 min
--- NOTE | 2024-03-10 10:45 | INPN_ITS ---
PT Notes Visit Reasons: Hip Fracture Physical Therapy Inpatient Progress Note Date: 03/10/2024 Dates of Service: 03/02/2024 through 03/10/2024 Precautions: Fall. Standard. WBAT on R LE with AD. Subjective: In pain but was willing to work throughout session. Stated that she was given a pink-colored liquid medication early this morning which the was curious about as he knows that patient is not supposed to have liquid oral medications. firm about not having HH PT, prefers going to outpatient PT. Objective: General Observation: Patient in chair when Pt arrived. Nurse Ryder temporarily disconnected patient from PEG tube for the walk. Telemetry monitoring in place. Mcrae catheter now discharged. Mental Status: Alert and oriented as to person, place, time, and purpose. Able to pay attention, focus, and respond appropriately. Pain: As above Vital Signs: Oxygen supplementation discharged, patient now on room air Bed Mobility/Transfers: Minimal cueing provided for use of B hands as needed for support, movement sequence, AD management, and posture to reduce fall risk and minimize pain report Sit to stand with supervision using B hands for support with minimal cues given for hand placement and trunk positioning for safety-with FWW Stand to sit with supervision using B hands for support with minimal cues given for hand placement and trunk positioning for safety with FWW Gait: Instructed patient with level surface ambulation of 250 feet requiring stand by assist using 2WW. Christine improving. Step length and height improving. Minimal verbal cueing given for movement sequence, AD management, limb advancement, and posture. Stairs: Guided patient with negotiation of 4 x 6-inch steps while holding onto B rails for support with pain report of about 7-8/10 Balance: Static Sitting: Normal Dynamic Sitting: Normal Static Standing: Fair Dynamic Standing: Fair Special Tests: Mobility Limitations Standardized Measure [facility] AM-PAC 6 clicks Basic Mobility Inpatient Short Form: Raw Score: 23 CMS Score: 11% deficit Informed Consent/Education: Patient was instructed in purpose of PT consult and plan of care. Agreeable to proceed with established PT POC to achieve personal goals. ASSESSMENT: Patient has demonstrated significant improvement in mobility performance using her front-wheeled walker despite pain report. Patient now needs stand by assist with all transfers and ambulation. Able to negotiate steps with just stand by assist and minimal cueing for Still reports pain in the right hip with ambulation. Most recent radiographs show hip hardware in good alignment. Goals: Goals X1 week 1. Supine-Sit independent NOt MET, CONTINUE 2. Sit-Supine independent NOT MET, CONTINUE 3. Sit-Stand independent NOT MET, CONTINUE 4. Stand-Sit independent NOT MET, CONTINUE 5. Bed-Chair independent NOT MET, CONTINUE 6. Chair-Bed independent NOT MET, CONTINUE 7. Independent gait on level surface with use of FWW for at least 300 feet without report of pain nor dyspnea NOT MET, CONTINUE 8. Independent stair negotiation while holding onto bilateral rails for at least 10 steps without report of pain nor dyspnea NOT MET, CONTINUE 9. Independent with home exercise program NOT MET, CONTINUE 10. Good static and dynamic standing balance/tolerance NOT MET, CONTINUE Plan of Care/Treatment Plan: Patient will highly benefit from skilled physical therapy services including functional mobility training, bed mobility/transfer training, gait and balance training, therapeutic exercises, therapeutic activity, caregiver/staff/family education and training 1x/day, 7 days/week x 1 week. Plan of care has been reviewed with the DIRECTOR PATIENT FINANCIAL SERVICES providing the service under Physical Therapy direction. Initiate Physical Therapy intervention for strengthening, bed mobility, transfers, gait, stairs, balance training, use of assistive device. DISCHARGE RECOMMENDATIONS: [] Home with no services [] [] Home with services [X] Home with outpatient PT for continued functional mobility training. [] SNF for continued rehabilitation [] [] Clinical Data Programmer Care [] [] SNF versus LTC based on ability to participate and progress [] TREATMENT CODE/TIME: 51604 x 20 minutes for 1 unit (10:45-11:05). Thank you for the opportunity to participate in the care of this patient. Sangita Luz PT, DPT, CLT [facility] [place], [place]
--- NOTE | 2024-03-10 11:15 | PDOC.CMPRO ---
Date of service: 03/10/24 Time of Service: 11:15 Care Management Progress Note Progress Note Text Progress Note Text: Jennifer was sitting up in a chair visiting with her Rogelio when CM met with her. She is scheduled to be discharged home tomorrow and stated that she is looking forward to this. Her was concerned about her tube feedings and wanted to ensure that todays Progress Note as well as her latest Nutrition Note were faxed prior to discharge. He explained that if not done, she would be discharged from the [facility] and he would have to start the process all over again. No daily Progress Note was available from today but CM faxed the Nutrition Note and yesterday's Progress Note. The Discharge Summary will be sent when completed tomorrow. CM contacted the [facility] and they requested new orders as her rate has changed. Discharge Potential Discharge Needs: PCP F/U Appt Anticipated Barriers to Discharge: Other (family reluctance to discharge home- nervous) Patient/Family Education Needs: Review discharge instructions, discuss Ask Me Three Transportation: Private vehicle Plan: Anticipate that Jennifer will return home in the next couple of days with PCP and ortho f/u. She will also f/u with her roaster operator. She will attend outpatient PT and continue per the plan of care. CM will follow and continue to assess for discharge needs. SDOH(Care Management) Screening Will the Patient Participate in the Screening?: Yes Do you worry about having a steady place to live?: no In the past 12 months, have you had to go without electric, gas, oil or water in your home?: no Have you or anyone in your house had to go without enough food to eat?: no Has lack of transportation kept you from medical appointments or from doing things needed for daily living?: no Has anyone in your support network made you feel unsafe for any reason?: no
[2024-03-10 11:19] VITALS: BP 119/55; PULSE 74; RESP 16; TEMP 37.4; O2SAT 99
[2024-03-10] MEDS: Acetaminophen Solution 650 MG/20.3 ML CUP 1000 MG PO (11:34)
[2024-03-10] MEDS: Metoprolol CR 25 MG TABCR NG ×2 (11:35→20:59)
[2024-03-10] MEDS: Insulin Aspart 300 UNITS/3 ML PEN SC ×2 (11:46→17:14)
[2024-03-10 12:55] VITALS: BP 108/57; PULSE 75; RESP 16; TEMP 37.1; O2SAT 94
--- NOTE | 2024-03-10 14:11 | PT.INTREAT ---
PT Notes Visit Reasons: Hip Fracture Inpatient Physical Therapy Treatment Note [facility] Date: 03/10/24 SUBJECTIVE: Jennifer states that she is going home tomorrow. She feels ready to go. She is tired and would like to get some rest. OBJECTIVE: []? VITALS: monitored by nsg. ? BED MOBILITY/TRANSFERS? pt seated in recliner. ? Sit-stand: CGA? Stand-sit: CGA? Provided skilled cues and instruction on performance and technique throughout. ? Therapeutic Exercises ([id number]) 20 min: Direct one-on-one instruction in therapeutic exercises to develop strength, endurance, range of motion and flexibility. ? Exercises ?reviewed HEP. I took her through all ex on her sheet. GS, QS, AP, heel slides, LAQ and seated july x10 each. Ambulation ? Assistive Device: FWW ? Weight bearing: AT R Assist: SBA? Distance:? 200'? Provided skilled instruction in proper exercise performance ASSESSMENT:? tolerated session fairly well. Seems to be easily overwhelmed and weepy this pm. Does well with encouragement. PLAN: will see her in am for continued strength via HEP as well as ambulation. TREATMENT CODE/TIME: 20 min. [id number]
[2024-03-10 15:12] VITALS: BP 117/49; PULSE 71; RESP 16; TEMP 36.9; O2SAT 98
--- NOTE | 2024-03-10 18:42 | W.PM.PROGNOT ---
Date of Service Date of service: 03/10/24 Time of Service: 18:42 Assessment and Plan Assessment and plan (1) Displaced fracture of right femoral neck: Status: Resolved Assessment and plan: Postop day 10. She is ambulating with physical therapy well. Given her other problems have stabilized she is probably ready for discharge tomorrow. (2) Acute blood loss anemia: Status: Acute Assessment and plan: Had a postop bleed. Will recheck CBC and BMP prior to discharge tomorrow. (3) History of total right hip replacement: Status: Acute Assessment and plan: Appears to be weightbearing well and should be ready for discharge tomorrow. (4) PEG (percutaneous endoscopic gastrostomy) status: Status: Chronic Assessment and plan: Are slowly getting back on her usual home regimen of medications via her PEG tube. (5) Insulin dependent type 2 diabetes mellitus: Status: Chronic Assessment and plan: Resume Jardiance. Subjective Subjective Interval history since last seen: Patient was seen working with PT. She is walking around the unit without a lot of apparent pain. She still has a markedly guarded gait. Once back in her room we are able to do an exam and get more of a history. She is getting back on her usual heart and blood pressure medications as well as her diabetes medications. Her is anxious about her coming home but appears to be ready. Exam Narrative Exam Narrative: On exam she appears somewhat frail and has a very guarded gait but has no respiratory difficulty and no complaints of any chest pain. Her lung sounds are clear on the right and left her heart sounds are regular no abdominal discomfort she appears steady on her feet using a walker. Objective Last Vital Signs Temp 36.9 C 03/10/24 15:12 Pulse 71 03/10/24 15:12 Resp 16 03/10/24 15:12 BP 117/49 L 03/10/24 15:12 Pulse Ox 98 03/10/24 15:12 Time Spent with Patient Time Spent with Patient: 25-34 minutes Time was spent: preparing to see the patient(eg.review tests), obtaining and/or reviewing separately otained hiistory, ordering medications,tests, procedures, referring, communicating with other health wound care technician and indepentently interpreting results
[2024-03-10 20:50] VITALS: BP 115/51; PULSE 79; RESP 18; TEMP 36.1; O2SAT 99
[2024-03-10] MEDS: Sacubitril/Valsartan 24 mg/26 mg TAB 1 EACH JT (20:59)
[2024-03-10] MEDS: Melatonin 3 MG TAB 9 MG PO (20:59)
[2024-03-10] MEDS: QUEtiapine 100 MG TAB PO (20:59)
[2024-03-10] MEDS: Atorvastatin 40 MG TAB 80 MG PO (20:59)
[2024-03-10] MEDS: DULoxetine 20 MG CAP PO (21:00)
[2024-03-10] MEDS: Insulin Glargine 300 UNITS/3 ML PEN 10 UNITS SC (21:00)
[2024-03-11 01:09] VITALS: BP 114/52; PULSE 78; RESP 16; TEMP 35.9; O2SAT 98
[2024-03-11 06:02] VITALS: BP 115/56; PULSE 68; RESP 16; TEMP 35.9; O2SAT 97
[2024-03-11 07:17] LABS: Abs Immature Grans 0.15 10^3/uL (0.0-0.06); Absolute Basophil Count 0.03 10^3/uL (0.0-0.2); Absolute Eosinophil Count 0.14 10^3/uL (0.0-0.7); Absolute Lymphocyte Count 1.61 10^3/uL (1.2-3.4); Absolute Monocyte Count 1.06 10^3/uL (0.1-0.8); Absolute Neutrophil Count 3.87 10^3/uL (1.2-6.7); Basophils % 0.4 %; HCT 26.2 % (36.0-46.0); HGB 8.6 g/dL (11.2-15.7); Immature Grans % 2.2 %; Lymphocytes % 23.5 %; MCH 29.8 pg (27.0-33.0); MCHC 32.8 % (32.0-36.0); MCV 91 fL (80-95); MPV 9.9 fL (8.0-11.0); Monocytes % 15.5 %; Neutrophils % 56.4 %; Nucleated RBC 0.4 % (0.0-0.3); Platelet Count 279 10^3/uL (130-400); RBC 2.89 10^6/uL (3.93-5.22); RDW 14.9 % (11.7-14.6); RDW-SD 46.5 fL; WBC 6.86 10^3/uL (4.4-10.8)
[2024-03-11 07:29] LABS: BUN 12 mg/dL (7-18); CREATININE 0.6 mg/dL (0.55-1.02); Chloride 108 mmol/L (98-107); Glucose 111 mg/dL (74-106); Potassium 4.2 mmol/L (3.5-5.1); Sodium 144 mmol/L (136-145)
[2024-03-11 07:30] VITALS: BP 133/51; PULSE 67; RESP 16; TEMP 36.7; O2SAT 99
[2024-03-11] MEDS: Normal Saline Flush 10 ML SYR IVP (08:38)
[2024-03-11] MEDS: Sacubitril/Valsartan 24 mg/26 mg TAB 1 EACH JT (08:39)
[2024-03-11] MEDS: DULoxetine 30 MG CAP 60 MG PO (08:39)
[2024-03-11] MEDS: buPROPion 100 MG TAB 300 MG PO (08:39)
[2024-03-11] MEDS: Aspirin 81 MG CHEW PO (08:40)
[2024-03-11] MEDS: Folic Acid 1 MG TAB PO (08:40)
[2024-03-11] MEDS: Empaglifozin 10 MG TAB PO (08:40)
[2024-03-11] MEDS: Metoprolol CR 25 MG TABCR NG (08:40)
[2024-03-11] MEDS: Cholecalciferol (Vitamin D3) 1,000 UNIT TAB 10000 UNITS JT (09:01)
[2024-03-11] MEDS: Acetaminophen Solution 650 MG/20.3 ML CUP 1000 MG PO (09:55)
--- NOTE | 2024-03-11 11:07 | W.PM.DS.N ---
Date of service: 03/11/24 Time of Service: 11:07 DS: Diagnosis Discharge Diagnosis (1) Displaced fracture of right femoral neck: Status: Resolved (2) Acute blood loss anemia: Status: Acute (3) History of total right hip replacement: Status: Acute (4) PEG (percutaneous endoscopic gastrostomy) status: Status: Chronic (5) Insulin dependent type 2 diabetes mellitus: Status: Chronic Discharge Plan Disposition Patient Disposition: Home Condition: Improving Discharge Details Reason For Visit: Hip Fracture Admit Date/Time: 02/29/24 21:20 Admit Provider: Aiden Bennett Attending Provider: Aiden Bennett Primary Care Provider: Ana Gillespie Hospital Course Hospital Course: This is a 63-year-old female with past medical history of dual mobility hip replacements, diabetes mellitus type 2, CHF, chronic anemia, dysphagia who is fed through PEG tube, who had a mechanical fall at home resulting in a right sided comminuted subcapital femoral neck fracture. She underwent surgical repair on 03/01 with an estimated blood loss of 550 cc. She recovered well from the anesthesia, was extubated, and transferred back to her hospital room. She was doing relatively well until she had an episode of hypotension during that first night and had an acute drop in her hemoglobin hematocrit. She was transferred to the ICU and received 1 unit of packed red blood cells. Recheck of hemoglobin in the morning was 12.9. She also received a minimal amount of norepinephrine. She is responded well to fluids and stabilized with no further hypotension or blood loss. she was transferred out of ICU and began working with physical therapy. Her heart failure meds which had been placed on hold have been restarted and she is remaining hemodynamically stable. Midodrine discontinued and now has resumed all her home medications. she is tolerating her peg feedings and is medically stable on all her home meds. she is being discharged to home and will participate in outpatient rehab and will resume previous home health care private assistance. discussed with DR Bergeron Home Meds and New Rx's Prescriptions: New duloxetine 20 mg Capsule,Delayed Release(Dr/Ec) 20 mg PO HS Qty: 0 0RF Continued bupropion HCl 100 mg tablet 300 mg PO DAILY Patient Comments: via g-tube, per pcp ov notes 12/09/22 RH protein Powder See Rx Instructions PO .COMPLEX Rx Instructions: 2 scoops daily duloxetine [Cymbalta] 20 mg capsule,delayed release(DR/EC) 20 mg PO HS Patient Comments: TAKE 1 CAPSULE PER DAY VIA G-TUBE IN THE EVENING duloxetine [Cymbalta] 60 mg capsule,delayed release(DR/EC) 60 mg PO DAILY Entresto 24-26 mg tablet 1 tab feeding tube BID Patient Comments: via g-tube Jardiance 10 mg tablet 10 mg PO DAILY atorvastatin 80 mg tablet 80 mg PO DAILY valproic acid (as sodium salt) 250 mg/5 mL solution 300 mg PO TID Rx Instructions: 6mls TID metoprolol succinate 50 mg tablet extended release 24 hr 25 mg PO BID sucralfate 1 gram tablet 1 g PO QID Patient Comments: TAKE ONE TABLET BY MOUTH FOUR TIMES A DAY folic acid 1 mg Tablet 1 mg PO DAILY Qty: 0 0RF ferrous sulfate 300 mg (60 mg iron)/5 mL liquid 300 mg feeding tube .QOD Patient Comments: TAKE 5ML VIA G-TUBE EVERY OTHER DAY Humulin N NPH Insulin KwikPen 100 unit/mL (3 mL) insulin pen See Rx Instructions .ROUTE .COMPLEX Qty: 0 0RF Rx Instructions: 20 units at 11 am followed by sliding scale at 3 pm (5 units for blood sugar of 250 plus 1 additional unit for any 20 points that the blood sugar is above 250) ibuprofen 100 mg/5 mL suspension 600 mg PO Q8H PRN guaifenesin 200 mg/5 mL liquid 200 mg feeding tube Q4H PRNQty: 118 0RF aspirin 81 mg tablet,chewable 81 mg feeding tube DAILY Qty: 30 0RF acetaminophen 500 mg/15 mL liquid 1,000 mg PO Q8H PRNQty: 237 2RF nystatin 100,000 unit/gram powder 1 applic TOPICAL TID PRN Patient Comments: APPLY TO BUTTOCKS THREE TIMES A DAY NEEDED pantoprazole [address] for susp in packet 40 mg G-tube DAILY Patient Comments: Take 1 packet via g-tube twice a day Administer in 10 mL of apple juice via g-tub, then follow with another 10 mL. nystatin 100,000 unit/gram cream 1 applic TOPICAL TID PRN Patient Comments: APPLY A SMALL AMOUNT TO AFFECTED AREA(S) ON BUTTOCKS THREE TIMES A DAY NEEDED melatonin 3 mg tablet 9 mg feeding tube HS Patient Comments: TAKE THREE TABLETS VIA G-TUBE EVERY NIGHT DIRECTED insulin glargine [Lantus Solostar U-100 Insulin] 100 unit/mL (3 mL) insulin pen 10 unit SUBCUT QPM Patient Comments: INJECT 10 UNITS UNDER THE SKIN NIGHTLY DIRECTED ondansetron HCl 4 mg tablet 8 mg feeding tube Q8H PRN Patient Comments: TAKE ONE TABLET VIA G-TUBE EVERY 8 HOURS NEEDED Changed quetiapine 100 mg tablet 100 mg PO HS Qty: 0 0RF Discharge Instructions Instructions: Anemia caused by low iron, Hip fracture Additional Instructions: Total Hip Discharge Instructions Activity: The most important activity is to walk. You should try to take short walks a few times a day. You have no restrictions on movement or positioning, but do not try to force what you do. You will find some stiffness and weakness with hip flexion (lifting your knee). Do not try to strengthen this too early, continue to practice walking and stairs and this will come. Dressing: Keep the surgical dressing in place for at least one week, but should be removed by 03/15/24. After the first week it may be removed and replace with light gauze and tape or nothing. It may get wet after 3 days but avoid soaking the dressing. If it gets wet, just lightly pat dry. It is important to always keep some gauze between skin folds, especially when you are sitting. Spend some time with the wound exposed when you are lying flat as the incision does wrinkle onto itself. Follow-up: 4 weeks If you have any acute concerns or questions, please do not hesitate to contact the office at [phone]. You may contact Dr. Mills with any questions after hours through the hospital at [phone] or on his cell phone at [phone]. Stand Alone Forms: Nursing Discharge Form Referrals: Gt Mills MD [ [facility] ST[facility]FF PHYSICIAN] - (Please call the office on Wednesday to confirm any follow up ) Hang Ocasio, PT [PHYSICAL THERAPIST] - Ana Gillespie [Primary Care Provider] - (Please call the office to set up a hospital follow up within 10-14 days. ) Activity:: Activity as Tolerated Equipment/Supplies:: No Equipment Needed Diet:: As Tolerated Discharge Orders Discharge Orders: Discharge Order (Routine); Ordered 03/11/24 Ordered By: Shalini García Discharge Data Discharge Date/Time-TO BE ENTERED AT DEPARTURE: 03/11/24 12:01 DS: Summary Time Spent with Patient providing and/or coordinating discharge services: Greater than 30 minutes Status at Discharge Functional status at discharge: uses cane/walker Overall status at discharge: patient is progressing back to baseline Mental Status: mental status grossly normal Speech and Movement: speech and movement normal Mood: congruent mood Affect: normal affect Quality:SDOH Health Related Social Needs: No Data to Display Exam Narrative Exam Narrative: Frail-appearing female older than stated age no acute distress head is atraumatic oral mucosa slightly dry respirations even and unlabored regular rate and rhythm PEG tube has been infusing well she is awake alert has been safely really ambulated Psych Mental Status: mental status grossly normal Speech and Movement: speech and movement normal Mood: congruent mood Affect: normal affect DS: Data Vitals/I&O Vitals and I&O: Vital Signs Temperature 36.7 C 03/11/24 07:30 Temperature Source Skin 03/11/24 07:30 Pulse 67 03/11/24 07:30 Pulse Rhythm Irregular 02/29/24 22:26 Pulse 81 03/04/24 15:06 Respiratory Rate 16 03/11/24 07:30 Respiratory Effort Labored, Incrsd Work of Breathing 03/02/24 01:30 Respiratory Depth Deep 03/02/24 01:30 Respiratory Pattern Normal 03/02/24 01:30 Blood Pressure 133/51 L 03/11/24 07:30 Blood Pressure Mean 85 03/04/24 15:06 Pulse Oximetry 99 03/11/24 07:30 Respiratory End-tidal CO2 30 03/01/24 17:55 Oxygen Delivery Method Room Air 03/11/24 07:30 Oxygen Flow Rate 0 03/11/24 07:30 Pain Level 5 03/11/24 09:55 Comment Charge nurse and RN notified 03/09/24 19:50 Comment by prior shift 03/04/24 04:36 Intake & Output 03/10/24 03/10/24 03/11/24 11:59 23:59 11:59 Intake Total 20 / 40 20 / 40 200 / 200 Output Total 0 / 0 Balance 20 / 40 20 / 40 200 / 200 Intake: IV 20 / 40 20 / 40 Oral 200 / 200 Output: Output, Residual 0 / 0 Other: Urine Color Pale Pale Yellow Urine Appearance Clear Clear Clear Urine Odor None Normal Comment pt voided into toilet pt voided into toilet large amount of incontinent urine in brief and on bed Stool Size Small Stool Characteristics Hard Data Completed and Pending Labs on day of discharge: Labs from last 24 hours 03/11/24 06:35 WBC 6.86 RBC 2.89 L Hgb 8.6 L Hct 26.2 L MCV 91 MCH 29.8 MCHC 32.8 RDW 14.9 H Plt Count 279 D MPV 9.9 Immature Gran % 2.2 Neutrophils % 56.4 Lymphocytes % 23.5 Monocytes % 15.5 Eosinophils % 2.0 Basophils % 0.4 Nucleated RBC % 0.4 H Absolute Neutrophils 3.87 Absolute Lymphocytes 1.61 Absolute Monocytes 1.06 H Absolute Eosinophils 0.14 Absolute Basophils 0.03 Sodium 144 Potassium 4.2 Chloride 108 H Carbon Dioxide 31.0 Anion Gap 5.0 BUN 12 Creatinine 0.6 Est GFR (CKD-EPI 2020) 100.80 Glucose 111 H Calcium 9.0 PFSH All Active Problems (Updated 03/12/24 @ 00:05 by [facility]) Acute blood loss anemia (Acute) History of total right hip replacement (Acute 03/01/24) PEG (percutaneous endoscopic gastrostomy) status (Chronic) 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) Medical History (Updated 03/12/24 @ 00:05 by [facility]) HFrEF (heart failure with reduced ejection fraction) Pre-op evaluation Abnormal chest xray H/O: pneumonia Anemia Drug-induced parkinsonism Neuroleptic induced parkinsonism Tubular adenoma (~06/10/21) Hyperplastic colon polyp (~06/10/21) Farrell's 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 Erosive esophagitis Esophageal ulcer with bleeding Farrell's esophagus Chronic diarrhea Black tarry stools Pleural effusion Leukocytosis Ventral hernia Cholelithiasis Atrial flutter Diabetes Bipolar 1 disorder Depression COVID Acute respiratory failure with hypoxia Acute on chronic respiratory failure with hypoxia Lab test positive for detection of COVID-19 virus Gastrostomy tube obstruction Aspiration pneumonia Pneumonitis Acute respiratory failure with hypoxia and hypercarbia Myocardial injury COPD with acute exacerbation NSTEMI (non-ST elevated myocardial infarction) Per pt. states she did not have a heart attack Bronchiolitis Acute on chronic respiratory failure with hypoxia and hypercapnia Hypotension Vitamin D deficiency Esophageal stricture Chronic systolic (congestive) heart failure Aspiration pneumonia Stress-induced cardiomyopathy acute onset managed at [facility] 08/30 pressors, EF 25%, has since recovered RH Acute cardiogenic pulmonary edema Acute metabolic encephalopathy Bilateral pneumonia Hypokalemia Closed fracture of neck of left femur s/p Percutaneous Screw Fixation 08/09/22 Constipation Diabetes mellitus type 2 in obese Chronic iron deficiency anemia ETOH abuse Poorly controlled diabetes mellitus Chronic pancreatitis due to acute alcohol intoxication Alcohol abuse Per pt. states she has never had an issues with any subtances History of pilonidal cyst Anxiety Surgical History (Updated 03/12/24 @ 00:05 by [facility]) Status post hip surgery History of total left hip arthroplasty (01/19/23) S/P laparoscopic procedure cyst removed from stomach per patient S/P surgical removal of pilonidal cyst History of esophagogastroduodenoscopy (EGD) (~06/10/21) History of colonoscopy with polypectomy (~06/10/21) History of hysterectomy History of tonsillectomy History of section Family History Father Hypertension Diabetes Heart disease Social History Smoking/Tobacco Use Status: Never Smoking risk assessment performed?: Yes Alcohol Intake: never Drug use: Never Substance use type: does not use Household members: spouse Housing: house Number of Children: 2 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
[2024-03-11 11:10] VITALS: BP 115/55; PULSE 72; RESP 14; TEMP 37.4; O2SAT 100
[2024-03-11] MEDS: Insulin Aspart 300 UNITS/3 ML PEN SC (11:40)
--- NOTE | 2024-03-11 12:08 | PT.INTREAT ---
Date of service: 03/11/24 Time of Service: 09:40 PT Notes Visit Reasons: Hip Fracture Inpatient Physical Therapy Treatment Note [facility] Date: 03/11/2024 PRECAUTIONS: Fall. Standard. WBAT on R LE with AD. Pain: Did complain of right hip pain of 5 out of 10 on pain scale, prior to pain meds being given. Agreed to ambulate post meds. ? BED MOBILITY/TRANSFERS? Pt seated in recliner when I arrived to room ? Sit-stand: CGA? Stand-sit: CGA? Provided skilled cues and instruction on performance and technique throughout. ? Therapeutic Exercises ([id number]) 15 min: Direct one-on-one instruction in therapeutic exercises to develop strength, endurance, range of motion and flexibility. ? Exercises ?Reviewed HEP. Able to perform GS, QS, AP, heel slides, LAQ and seated march x10 reps each. Therapeutic Activities ([id number]) 20 minutes. Ambulation ? Assistive Device: FWW ? Weight bearing: AT R Assist: SBA? Distance:? Ambulated 50ft and indicated she was too tired and uncomfortable to go further, but patient's reminded her that if she wants to go home she needs to be able to do the loop. So, Jennifer did continue with remaining 150ft.? Provided skilled instruction in proper exercise performance ASSESSMENT:? Tolerated session fair, but did need encouragement from myself and her to perform ambulation around loop today. Did remind patient repeatedly to place more weight on UEs if noticing pain in right LE when ambulating. PLAN: Will continue with ambulation and strengthening until DC from hospital, possibly later today. TREATMENT CODE/TIME: [id number] 9:40 to 9:55 (15') and post pain meds [id number] 10:55 to 11:15 (20')
--- NOTE | 2024-03-11 17:28 | CMDISCH_ITS ---
Date of service: 03/11/24 Time of Service: 12:00 LACE Index Scoring Tool Questions: Length of Stay (in days): 7 - 13 Was the patient admitted via the E.D.?: Yes Comorbidities: Previous M.I., Diabetes w/o Complication and Chronic Pulmonary Disease E.D. Visits: 2 Answers: Total Score: 15 Risk of Readmission: High Risk Care Management Discharge Plan Reason for Hospitalization: right hip fracture Discharge Plan: Jennifer was discharged home with no new services. New orders for her BT feeds were sent to [facility] by . She was referred to outpatient PT and will f /u with her PCP and her orthopedic surgeon. She will continue per her plan of care, and be driven home by her , Campos. Patient/Family Education Needs: Review of discharge instructions, activity, limitations and f/u plan. Discuss Ask me 3. SDOH Health Related Social Needs: No Data to Display
== END 2024-03-11 12:01 | disposition home or self-care (01) | DRG 522 ==
LOC: ER 19:07 → MS 21:22 → ICU 03-02 01:24 → MS 03-04 16:07
PROVIDERS: Family Medicine; General Practice; Student in an Organized Health Care Education/Training Program; Admitting Provider Internal Medicine; Emergency Provider Emergency Medicine; PCP Nurse Practitioner Family; Visit Provider Internal Medicine
PROC: 0SR904A Replacement of Right Hip Joint with Ceramic on Polyethylene Synthetic Substitute, Uncemented, Open Approach (ICD-10-PCS; CPT 27130; principal; 2024-03-01 14:45)
DX: D62 Acute posthemorrhagic anemia; I50.22 Chronic systolic (congestive) heart failure; G21.11 Neuroleptic induced parkinsonism; I51.81 Takotsubo syndrome; I47.10 Supraventricular tachycardia, unspecified; Z93.1 Gastrostomy status; S72.011A Unspecified intracapsular fracture of right femur, initial encounter for closed fracture; E11.9 Type 2 diabetes mellitus without complications; Z79.4 Long term (current) use of insulin; F31.9 Bipolar disorder, unspecified; R29.6 Repeated falls; Z96.642 Presence of left artificial hip joint; I25.2 Old myocardial infarction; J44.9 Chronic obstructive pulmonary disease, unspecified; K52.9 Noninfective gastroenteritis and colitis, unspecified; K22.70 Barrett's esophagus without dysplasia; W01.0XXA Fall on same level from slipping, tripping and stumbling without subsequent striking against object, initial encounter; M81.0 Age-related osteoporosis without current pathological fracture; K22.2 Esophageal obstruction; I95.81 Postprocedural hypotension
CPT/HCPCS: 27130; 20985; 36410; 00123; 36415; 36430; 80048; 80053; 82306; 82550; 85027; 86850; 86900; 86901; 86920; 93005; 96365; 96375; 96376; 97110; 97116; 97162; 97530; 99285; 70450; 72125; 72170; 73501; 73502; 73700; 81003; 82607; 82728; 82746; 83540; 83735; 84443; 84484; 85014; 85018; 85025; 85045; 85610; 93010; 93306; 94760; 99222; 99231; 99232; 99233; 99239; 99291; C1776; J0131; J0690; J1100; J1171; J1720; J1790; J1815; J1885; J2270; J2371; J2405; J2704; J3010; J3475; J3490; P9016

== ENCOUNTER 2024-04-19 22:41 | Inpatient (IN) | payer MEDICAID, SELFPAY ==
[2024-04-19] VITALS (53 sets, daily range): BP systolic 107–128; BP diastolic 46–55; PULSE 72–75; RESP 14–29; TEMP 36.4–36.6; O2SAT 79–96
--- NOTE | 2024-04-19 22:30 | RT.EKG_ITS ---
APPROVED REPORT Exam: Resting ECG Reason for Exam: trouble breathing Patient Location: I HR:78 bpm ECG Measurements Heart Rate 78 AXIS ND 146 P 52 QRSd 82 QRS 74 QT 416 T 58 QTc 475 Conclusion Sinus rhythm, rate 78 No interval abnormalities No STEMI Compared to priors, QTc has decreased
--- NOTE | 2024-04-19 22:45 | DI.RAD_ITS ---
Exam(s) XR PORTABLE CHEST AP EXAM: XR PORTABLE CHEST AP CLINICAL HISTORY: shortness of breath, new cough. TECHNIQUE: 2D digital imaging was performed. COMPARISON: CR XR PORTABLE CHEST AP from 07/02/2023 FINDINGS: Single AP portable view. Patient is rotated towards the left. Heart size is normal. Slight widening of the mediastinum but may be exaggerated by rotation. Increased interstitial markings are noted in both lung howard. No associated Minor B lines and no p leural effusions. IMPRESSION: Diffuse bilateral interstitial increased markings probably infectious given that heart size is normal . No obvious pleural effusions. Recommend nonportable PA and lateral views when clinically possible. DATA REPOSITORY: RADIATION DOSE DELIVERED:
--- OUTSIDE RECORDS SUMMARY | 2024-04-19 22:51 | XMS_ITS | Data Portability ---
Author Organization [place] - [facility] [place] [address] Care Team Providers Care Supermarket Manager Name Role Phone CHRIS STANLEY Primary Care Provider RICHARD SANTANA OTHER FLAVIO MOSELEY OTHER [phone] AGGIE MAE Prototype Engineer Assessment Encounter Date Assessment Date Assessment LastModified by Organization Details LastModified Time 07/16/2023 07/16/2023 The following concerns were reviewed today. We agree to follow-up in 2 weeks at which time A1C will be completed. [email or web address] Not available 07/16/2023 15:30:54 03/29/2024 03/29/2024 Reclast--- [email or web address] Not available 10:45:45 Plan of Treatment Reminders Order Date Submit Date Provider Last Modified By Organization Details Last Modified Time Details Appointments Office Visit 30 2023 10:00A Johanny STANLEY, Not available Not available Not available Lab hemoglobi n A1C, fingersti ck 2023 024 [email or web address] [facility], [address] [place] [address], [phone], 07/30/2023 12:19:14 bacterial vaginosis + vaginitis panel, vaginal 2023 024 [facility]SE MAN[facility] ), [address] [place] [address] [place], [address], 12/07/2023 08:25:07 hemoglobi n A1C, fingersti ck 2023 024 [email or web address] [facility], [address] [place] [address], [phone], 12/03/2023 13:04:17 hemoglobi n A1C, fingersti ck 2023 024 [facility], [address] [place] [address], [phone], 03/29/2024 13:21:35 Referral None recorded. Procedures None recorded. Surgeries None recorded. Imaging None recorded. Medication Orders Desitin 40 % topical paste 2023 024 JOSE MANUEL [facility], [address] [place] [address], [id number], 07/16/2023 09:39:52 fluconazo le 40 mg/mL oral suspensio n 2023 024 JOSE MANUEL [facility], [address] [place] [address], [id number], 07/30/2023 10:47:32 Cymbalta 20 mg capsule,d elayed release 2023 024 [facility], [address] [place] [address], [id number], 12/03/2023 11:06:36 duloxetin e 60 mg capsule,d elayed release 2023 024 JOSE MANUEL [facility], [address] [place] [address], [id number], 09/01/2023 11:42:23 ondansetr on HCl 4 mg tablet 2023 024 [id number] [facility], [address] [place] [address], [id number], 09/01/2023 11:26:22 Entresto 24 mg-26 mg tablet 2023 024 [email or web address] [facility], [address] [place] [address], [id number], 09/01/2023 11:26:22 duloxetin e 20 mg capsule,d elayed release 2023 024 [email or web address] [facility], [address] [place] [address], [id number], 12/04/2023 09:48:58 clotrimaz ole 1 % topical cream 2023 024 JOSE MANUEL [facility], [address] [place] [address], [id number], 12/04/2023 09:22:02 Likmez 500 mg/5 mL oral suspensio n 2023 024 JOSE MANUEL [facility], [address] [place] [address], [id number], 03/21/2024 10:55:05 Mapap (acetamin ophen) 500 mg/15 mL oral liquid 2023 024 [email or web address] [facility], [address] [place] [address], [id number], 03/30/2024 12:36:58 Patient TargetsNo targets recorded. Patient InstructionsNo instructions recorded. Reason for Referral None Reported. Results Created Date Observation Date Name Description Value Unit Range Abnormal Flag Note LastModifiedBy Organization Detail LastModifiedTime 06/29/19 24 06/29/2023 influ marco (A+B) Ag, qual, rapid , nose Influenza A negati ve Not Available [address], [address], 06/29/2023 08:40:52 06/29/19 24 06/29/2023 influ marco (A+B) Ag, qual, rapid , nose Influenza B negati ve Not Available [address], [place], [address], 06/29/2023 08:40:52 07/02/19 24 07/02/2023 VENOU S BLOOD GAS pH (venous) 7.27 7.31-7 .41 low Not Available [address] [place], [address] 07/02/2023 12:28:02 07/02/19 24 07/02/2023 VENOU S BLOOD GAS pCO2 (venous) 71 mmHg 41-51 panic high Criti tonya value repor gabbie [facility] at 1224 07/02 by KEKE.Madison CONWAY Not Available [address] [place], [address] 07/02/2023 12:28:02 07/02/19 24 07/02/2023 VENOU S BLOOD GAS pO2 (venous) 44 mmHg Not Available [address] [place], [address] 07/02/2023 12:28:02 07/02/19 24 07/02/2023 VENOU S BLOOD GAS TCO2 (venous) 30 mmol/ L 24-29 high Not Available [address] [place], [address] 07/02/2023 12:28:02 07/02/19 24 07/02/2023 VENOU S BLOOD GAS HCO3 (venous) 32 mmol/ L 23-28 high Not Available [address] [place], [address] 07/02/2023 12:28:02 07/02/19 24 07/02/2023 VENOU S BLOOD GAS BE (venous) 5 mmol/ L -2-3 high Not Available [address] [place], [address] 07/02/2023 12:28:02 07/02/19 24 07/02/2023 VENOU S BLOOD GAS O2 sat (venous) 71 % Not Available [address], [address] 07/02/2023 12:28:02 07/02/19 24 07/02/2023 COMPL ETE BLOOD COUNT W/DIF F WBC 14.79 10_3/ uL 4.4-10 .8 high Not Available [address] [place], [address] 07/02/2023 12:30:06 07/02/19 24 07/02/2023 COMPL ETE BLOOD COUNT W/DIF F RBC 4.78 10_6/ uL 3.93-5 .22 normal Not Available [address] [place], [address] 07/02/2023 12:30:06 07/02/19 24 07/02/2023 COMPL ETE BLOOD COUNT W/DIF F HGB 13.6 g/dL 11.2-1 5.7 normal Not Available [address] [place], [address] 07/02/2023 12:30:06 07/02/19 24 07/02/2023 COMPL ETE BLOOD COUNT W/DIF F HCT 42.3 % 36.0-4 6.0 normal Not Available [address] [place], [address] 07/02/2023 12:30:06 07/02/19 24 07/02/2023 COMPL ETE BLOOD COUNT W/DIF F MCV 89 fL 80-95 normal Not Available [address] [place], [address] 07/02/2023 12:30:06 07/02/19 24 07/02/2023 COMPL ETE BLOOD COUNT W/DIF F MCH 28.5 pg 27.0-3 3.0 normal Not Available [address] [place], [address] 07/02/2023 12:30:06 07/02/19 24 07/02/2023 COMPL ETE BLOOD COUNT W/DIF F MCHC 32.2 % 32.0-3 6.0 normal Not Available [address] [place], [address] 07/02/2023 12:30:06 07/02/19 24 07/02/2023 COMPL ETE BLOOD COUNT W/DIF F RDW 15.4 % 11.7-1 4.6 high Not Available [address] [place], [address] 07/02/2023 12:30:06 07/02/19 24 07/02/2023 COMPL ETE BLOOD COUNT W/DIF F platelet count 244 10_3/ uL 130-40 0 normal Not Available [address] [place], [address] 07/02/2023 12:30:06 07/02/19 24 07/02/2023 COMPL ETE BLOOD COUNT W/DIF F MPV 10.8 fL 8.0-11 .0 normal Not Available [address] [place], [address] 07/02/2023 12:30:06 07/02/19 24 07/02/2023 COMPL ETE BLOOD COUNT W/DIF F neutrophils % 74.3 Not Available [address], [address] 07/02/2023 12:30:06 07/02/19 24 07/02/2023 COMPL ETE BLOOD COUNT W/DIF F lymphocytes % 10.8 Not Available [address], [address] 07/02/2023 12:30:06 07/02/19 24 07/02/2023 COMPL ETE BLOOD COUNT W/DIF F monocytes % 5.3 Not Available [address], [address] 07/02/2023 12:30:06 07/02/19 24 07/02/2023 COMPL ETE BLOOD COUNT W/DIF F eosinophils % 8.6 Not Available [address], [address] 07/02/2023 12:30:06 07/02/19 24 07/02/2023 COMPL ETE BLOOD COUNT W/DIF F basophils % 0.7 Not Available [address], [address] 07/02/2023 12:30:06 07/02/19 24 07/02/2023 COMPL ETE BLOOD COUNT W/DIF F immature grans % 0.3 Not Available Puja burris [address] [place], [address] 07/02/2023 12:30:06 07/02/19 24 07/02/2023 COMPL ETE BLOOD COUNT W/DIF F nucleated RBC 0.0 % 0.0-0. 3 normal Not Available [address] [place], [address] 07/02/2023 12:30:06 07/02/19 24 07/02/2023 COMPL ETE BLOOD COUNT W/DIF F absolute neutrophil count 10.99 10_3/ uL 1.2-6. 7 high Not Available [address] [place], [address] 07/02/2023 12:30:06 07/02/19 24 07/02/2023 COMPL ETE BLOOD COUNT W/DIF F absolute lymphocyte count 1.60 10_3/ uL 1.2-3. 4 normal Not Available [address] [place], [address] 07/02/2023 12:30:06 07/02/19 24 07/02/2023 COMPL ETE BLOOD COUNT W/DIF F absolute monocyte count 0.78 10_3/ uL 0.1-0. 8 normal Not Available [address] [place], [address] 07/02/2023 12:30:06 07/02/19 24 07/02/2023 COMPL ETE BLOOD COUNT W/DIF F absolute eosinophil count 1.27 10_3/ uL 0.0-0. 7 high Not Available [address] [place], [address] 07/02/2023 12:30:06 07/02/19 24 07/02/2023 COMPL ETE BLOOD COUNT W/DIF F absolute basophil count 0.10 10_3/ uL 0.0-0. 2 normal Not Available [address] [place], [address] 07/02/2023 12:30:06 07/02/19 24 07/02/2023 BASIC METAB OLIC PANEL calcium 9.8 mg/dL 8.5-10 .1 normal Not Available [address] [place], [address] 07/02/2023 12:47:07 07/02/19 24 07/02/2023 BASIC METAB OLIC PANEL glucose 113 mg/dL 74-106 high Not Available Medarod tarango [address] [place], [address] 07/02/2023 12:47:07 07/02/19 24 07/02/2023 BASIC METAB OLIC PANEL BUN 11 mg/dL 7-18 normal Not Available Medardo tarango [address] [place], [address] 07/02/2023 12:47:07 07/02/19 24 07/02/2023 BASIC METAB OLIC PANEL creatinine 0.8 mg/dL 0.55-1 .02 normal Not Available [address] [place], [address] 07/02/2023 12:47:07 07/02/19 24 07/02/2023 BASIC METAB [...] young er-ag ed adult s. Not Available [address] [place], [address] 07/02/2023 12:47:07 07/02/19 24 07/02/2023 BASIC METAB OLIC PANEL sodium 142 mmol/ L 136-14 5 normal Not Available [address] [place], [address] 07/02/2023 12:47:07 07/02/19 24 07/02/2023 BASIC METAB OLIC PANEL potassium 4.5 mmol/ L 3.5-5. 1 normal Not Available [address] [place], [address] 07/02/2023 12:47:07 07/02/19 24 07/02/2023 BASIC METAB OLIC PANEL chloride 102 mmol/ L 98-107 normal Not Available [address] [place], [address] 07/02/2023 12:47:07 07/02/19 24 07/02/2023 BASIC METAB OLIC PANEL CO2 31.4 mmol/ L 21.0-3 2.0 normal Not Available [address] [place], [address] 07/02/2023 12:47:07 07/02/19 24 07/02/2023 BASIC METAB OLIC PANEL anion gap 8.6 mmol/ L 3-11 normal Not Available [address] [place], [address] 07/02/2023 12:47:07 07/02/19 24 07/02/2023 CARDI AC TROPO MONI I cardiac troponin I 203 NG/L < or =60 panic high Criti tonya value repor gabbie to and readb ack from [facility] at 1243 07/02 by LAB.G ERJ An [...] Bioti n (Paola min B7). Not Available [address], [address] 07/02/2023 12:47:08 07/02/19 24 07/02/2023 COVID /FLU/ RSV PCR source Nasoph arynx Not Available [address] [place], [address] 07/02/2023 13:22:12 07/02/19 24 07/02/2023 COVID /FLU/ [...] tion of nucle ic acid from the 2018 novel coron a virus (2018 -nCoV ), influ marco A, influ marco [...] detec tion and/o r diagn osis of nCoV under secti on 564(b )(1) of [...] histo ry, and epide miolo gical infor matio n. Testi ng perfo rmed at [facility] (CLIA #[id number]) on the [employer] id [employer] pert. Not Available [address] [place], [address] 07/02/2023 13:22:12 07/02/19 24 07/02/2023 COVID /FLU/ RSV PCR influenza A PCR Negati ve negati ve Not Available [address] [place], [address] 07/02/2023 13:22:12 07/02/19 24 07/02/2023 COVID /FLU/ RSV PCR influenza B PCR Negati ve negati ve Not Available [address] [place], [address] 07/02/2023 13:22:12 07/02/19 24 07/02/2023 COVID /FLU/ RSV PCR RSV PCR Negati ve negati ve Not Available [address] [place], [address] 07/02/2023 13:22:12 07/02/19 24 07/02/2023 VENOU S BLOOD GAS pH (venous) 7.31 7.31-7 .41 normal Not Available [address] [place], [address] 07/02/2023 14:51:21 07/02/19 24 07/02/2023 VENOU S BLOOD GAS pCO2 (venous) 58 mmHg 41-51 high Not Available [address], [address] 07/02/2023 14:51:21 07/02/19 24 07/02/2023 VENOU S BLOOD GAS pO2 (venous) 42 mmHg Not Available [address] [place], [address] 07/02/2023 14:51:21 07/02/19 24 07/02/2023 VENOU S BLOOD GAS TCO2 (venous) 26 mmol/ L 24-29 normal Not Available [address] [place], [address] 07/02/2023 14:51:21 07/02/19 24 07/02/2023 VENOU S BLOOD GAS HCO3 (venous) 29 mmol/ L 23-28 high Not Available [address] [place], [address] 07/02/2023 14:51:21 07/02/19 24 07/02/2023 VENOU S BLOOD GAS BE (venous) 2 mmol/ L -2-3 normal Not Available [address] [place], [address] 07/02/2023 14:51:21 07/02/19 24 07/02/2023 VENOU S BLOOD GAS O2 sat (venous) 72 % Not Available Puja [email or web address] [place], [address] 07/02/2023 14:51:21 07/02/19 24 07/02/2023 CARDI AC TROPO MONI I cardiac troponin I 434 NG/L < or =60 panic high Criti tonya value repor gabbie to and readb ack from [facility] ER at 1508 07/02 by LAB.I JESSICA [...] Bioti n (Paola min B7). Not Available [address] [place], [address] 07/02/2023 15:14:23 07/02/19 24 07/02/2023 CARDI AC [...] Bioti n (Paola min B7). Not Available [address] [place], [address] 07/02/2023 18:00:48 07/02/19 24 07/02/2023 GRAM STAIN gram stain Gram Stain GRAM STAIN (REPO RT) Few White Blood Cells Rare Epith elial Cells Few Mixed Gram Posit yissel Travis ; None Predo minan t Not Available [address] [place], [address] 07/02/2023 20:36:09 07/02/19 24 07/02/2023 CARDI AC [...] Bioti n (Paola min B7). Not Available [address] [place], [address] 07/02/2023 21:01:00 07/02/19 24 07/02/2023 LAB ADD ON TEST lab add on test DONE Not Available [facility] fatuma [address] [place], [address] 07/02/2023 21:49:06 07/02/19 24 07/02/2023 PROCA LCITO [...] se, among other cause s. Not Available [address] , [place], [address] 07/02/2023 22:37:10 07/02/19 24 07/03/2023 SPUTU M [...] 1.1) - RARE GROWT H Not Available [address] [facility] [place], [address] 07/03/2023 08:51:17 07/02/19 24 07/04/2023 SPUTU M [...] 1.2) - RARE GROWT H Not Available [facility] [address] [facility], [place], [address] 07/04/2023 11:01:16 07/02/19 24 07/05/2023 SPUTU M [...] 1.2) - RARE GROWT H Not Available [address] [facility] [place], [address] 07/05/2023 09:10:04 07/02/19 24 07/07/2023 MYCOP LASMA PNEUM ONIAE , PCR specimen source sputum Not Available [facility] [address] [facility] [place], [address] 07/07/2023 16:28:33 07/02/19 24 07/07/2023 MYCOP LASMA PNEUM ONIAE , PCR mycoplasma pneumoniae PCR Negati ve negati ve ----- ----- ----- ----A DDITI ONAL INFOR MATIO N---- ----- ----- ----- This test was devel oped and its perfo rmanc e misty cteri stics deter [facility] a arie r consi stent with CLIA colleen yuan ts. This test has not been clear ed or appro snoia by the U.S. Food and Drug Admin istra tion. Test Perfo rmed by: [facility] [place] [facility] [address] , [place] [address] Lab Direc tor: Noel Kunz Ph.D. ; CLIA# [id number] Not Available [address] [facility] [place], [address] 07/07/2023 16:28:33 07/02/19 24 07/07/2023 STREP TOCOC [...] c assay . Test Perfo rmed by: [facility] [place] [address], [place] [address] Lab Direc tor: Noel Kunz Ph.D. ; CLIA# [id number] Not Available [address] [facility] [place], [address] 07/08/2023 08:43:22 07/02/19 24 07/03/2023 LEGIO SHANNON AG DETEC TION URINE legionella Ag detection urine Negati ve negati ve Test perfo rmed or refer red by [facility] [address] [facility] Cornelio donahue, [facility] [place] [address] Not Available [address] [place], [address] 07/08/2023 08:43:22 07/03/19 24 07/03/2023 COMPL ETE BLOOD COUNT W/DIF F WBC 11.19 10_3/ uL 4.4-10 .8 high Not Available [address] [facility] [place], [address] 07/03/2023 07:26:12 07/03/19 24 07/03/2023 COMPL ETE BLOOD COUNT W/DIF F RBC 4.71 10_6/ uL 3.93-5 .22 normal Not Available [address] [facility] [place], [address] 07/03/2023 07:26:12 07/03/19 24 07/03/2023 COMPL ETE BLOOD COUNT W/DIF F HGB 13.3 g/dL 11.2-1 5.7 normal Not Available [address] [facility] [place], [address] 07/03/2023 07:26:12 07/03/19 24 07/03/2023 COMPL ETE BLOOD COUNT W/DIF F HCT 40.7 % 36.0-4 6.0 normal Not Available [address] [place], [address] 07/03/2023 07:26:12 07/03/19 24 07/03/2023 COMPL ETE BLOOD COUNT W/DIF F MCV 86 fL 80-95 normal Not Available Medardo [address] [place], [address] 07/03/2023 07:26:12 07/03/19 24 07/03/2023 COMPL ETE BLOOD COUNT W/DIF F MCH 28.2 pg 27.0-3 3.0 normal Not Available [address] [place], [address] 07/03/2023 07:26:12 07/03/19 24 07/03/2023 COMPL ETE BLOOD COUNT W/DIF F MCHC 32.7 % 32.0-3 6.0 normal Not Available [address] [place], [address] 07/03/2023 07:26:12 07/03/19 24 07/03/2023 COMPL ETE BLOOD COUNT W/DIF F RDW 15.4 % 11.7-1 4.6 high Not Available [address] [place], [address] 07/03/2023 07:26:12 07/03/19 24 07/03/2023 COMPL ETE BLOOD COUNT W/DIF F platelet count 275 10_3/ uL 130-40 0 normal Not Available [address] [place], [address] 07/03/2023 07:26:12 07/03/19 24 07/03/2023 COMPL ETE BLOOD COUNT W/DIF F MPV 11.3 fL 8.0-11 .0 high Not Available [address] [place], [address] 07/03/2023 07:26:12 07/03/19 24 07/03/2023 COMPL ETE BLOOD COUNT W/DIF F neutrophils % 74.2 Not Available [address] [facility] [place], [address] 07/03/2023 07:26:12 07/03/1907/03/2023 COMPL ETE BLOOD COUNT W/DIF F lymphocytes % 16.6 Not Available [address] [place], [address] 07/03/2023 07:26:12 07/03/1907/03/2023 COMPL ETE BLOOD COUNT W/DIF F monocytes % 8.0 Not Available [address] [facility] [place], [address] 07/03/2023 07:26:12 07/03/1907/03/2023 COMPL ETE BLOOD COUNT W/DIF F eosinophils % 0.3 Not Available [address] [facility] [place], [address] 07/03/2023 07:26:12 07/03/1907/03/2023 COMPL ETE BLOOD COUNT W/DIF F basophils % 0.5 Not Available [address] [facility] [place], [address] 07/03/2023 07:26:12 07/03/1907/03/2023 COMPL ETE BLOOD COUNT W/DIF F immature grans % 0.4 Not Available [address] [facility] [place], [address] 07/03/2023 07:26:12 07/03/1907/03/2023 COMPL ETE BLOOD COUNT W/DIF F nucleated RBC 0.0 % 0.0-0. 3 normal Not Available [address] [facility] [place], [address] 07/03/2023 07:26:12 07/03/1907/03/2023 COMPL ETE BLOOD COUNT W/DIF F absolute neutrophil count 8.30 10_3/ uL 1.2-6. 7 high Not Available [address] [facility] [place], [address] 07/03/2023 07:26:12 07/03/19 24 07/03/2023 COMPL ETE BLOOD COUNT W/DIF F absolute lymphocyte count 1.86 10_3/ uL 1.2-3. 4 normal Not Available [address] [place], [address] 07/03/2023 07:26:12 07/03/19 24 07/03/2023 COMPL ETE BLOOD COUNT W/DIF F absolute monocyte count 0.90 10_3/ uL 0.1-0. 8 high Not Available [address] [place], [address] 07/03/2023 07:26:12 07/03/19 24 07/03/2023 COMPL ETE BLOOD COUNT W/DIF F absolute eosinophil count 0.03 10_3/ uL 0.0-0. 7 normal Not Available [address] [place], [address] 07/03/2023 07:26:12 07/03/19 24 07/03/2023 COMPL ETE BLOOD COUNT W/DIF F absolute basophil count 0.06 10_3/ uL 0.0-0. 2 normal Not Available [address] [place], [address] 07/03/2023 07:26:12 07/03/1907/03/2023 BASIC METAB OLIC PANEL calcium 9.7 mg/dL 8.5-10 .1 normal Not Available [address] [place], [address] 07/03/2023 07:28:10 07/03/19 24 07/03/2023 BASIC METAB OLIC PANEL glucose 107 mg/dL 74-106 high Not Available Medardo tarango [address] [place], [address] 07/03/2023 07:28:10 07/03/1907/03/2023 BASIC METAB OLIC PANEL BUN 17 mg/dL 7-18 normal Not Available Medardo tarango [address] [place], [address] 07/03/2023 07:28:10 07/03/19 24 07/03/2023 BASIC METAB OLIC PANEL creatinine 1.0 mg/dL 0.55-1 .02 normal Not Available [address] [place], [address] 07/03/2023 07:28:10 07/03/19 24 07/03/2023 BASIC METAB OLIC PANEL estimated GFR 63.30 [...] young er-ag ed adult s. Not Available [address] [place], [address] 07/03/2023 07:28:10 07/03/19 24 07/03/2023 BASIC METAB OLIC PANEL sodium 139 mmol/ L 136-14 5 normal Not Available [address] [place], [address] 07/03/2023 07:28:10 07/03/19 24 07/03/2023 BASIC METAB OLIC PANEL potassium 4.5 mmol/ L 3.5-5. 1 normal Not Available [address] [place], [address] 07/03/2023 07:28:10 07/03/19 24 07/03/2023 BASIC METAB OLIC PANEL chloride 102 mmol/ L 98-107 normal Not Available [address] [place], [address] 07/03/2023 07:28:10 07/03/19 24 07/03/2023 BASIC METAB OLIC PANEL CO2 26.2 mmol/ L 21.0-3 2.0 normal Not Available [address] [place], [address] 07/03/2023 07:28:10 07/03/19 24 07/03/2023 BASIC METAB OLIC PANEL anion gap 10.8 mmol/ L 3-11 normal Not Available [address] [place] [place], [address] 07/03/2023 07:28:10 07/03/1907/03/2023 MAGNE SIUM magnesium 1.9 mg/dL 1.8-2. 4 normal Not Available [address] [place], [address] 07/03/2023 07:28:10 07/04/1907/04/2023 VENOU S BLOOD GAS pH (venous) 7.53 7.31-7 .41 high Not Available [address] [place], [address] 07/04/2023 02:56:01 07/04/1907/04/2023 VENOU S BLOOD GAS pCO2 (venous) 34 mmHg 41-51 low Not Available [facility] [address] [place], [address] 07/04/2023 02:56:01 07/04/1907/04/2023 VENOU S BLOOD GAS pO2 (venous) 60 mmHg Not Available [address] [place], [address] 07/04/2023 02:56:01 07/04/1907/04/2023 VENOU S BLOOD GAS TCO2 (venous) 25 mmol/ L 24-29 normal Not Available [address] [place], [address] 07/04/2023 02:56:01 07/04/1907/04/2023 VENOU S BLOOD GAS HCO3 (venous) 28 mmol/ L 23-28 normal Not Available [address] [place], [address] 07/04/2023 02:56:01 07/04/1907/04/2023 VENOU S BLOOD GAS BE (venous) 6 mmol/ L -2-3 high Not Available [address] [place], [address] 07/04/2023 02:56:01 07/04/1907/04/2023 VENOU S BLOOD GAS O2 sat (venous) 93 % Not Available [facility] [address] [place], [address] 07/04/2023 02:56:01 07/04/1907/04/2023 CARDI AC TROPO MONI I cardiac troponin I 192 NG/L < or =60 panic high Criti tonya value repor gabbie TROPO MONI to and readb ack from AMINA CHASE RN MS/S at 07/04 by LAB.Johanny ARC An eleva gabbie/a bnorm al tropo [...] Bioti n (Paola min B7). Not Available [address] [place], [address] 07/04/2023 03:20:02 07/04/1907/04/2023 COMPL ETE BLOOD COUNT W/DIF F WBC 8.91 10_3/ uL 4.4-10 .8 normal Not Available [address] [place], [address] 07/04/2023 06:19:05 07/04/1907/04/2023 COMPL ETE BLOOD COUNT W/DIF F RBC 4.07 10_6/ uL 3.93-5 .22 normal Not Available [address] [place], [address] 07/04/2023 06:19:05 07/04/1907/04/2023 COMPL ETE BLOOD COUNT W/DIF F HGB 11.4 g/dL 11.2-1 5.7 normal Not Available [address] [place], [address] 07/04/2023 06:19:05 07/04/1907/04/2023 COMPL ETE BLOOD COUNT W/DIF F HCT 34.8 % 36.0-4 6.0 low Not Available [address] [place], [address] 07/04/2023 06:19:05 07/04/19 24 07/04/2023 COMPL ETE BLOOD COUNT W/DIF F MCV 86 fL 80-95 normal Not Available [address] [place], [address] 07/04/2023 06:19:05 07/04/19 24 07/04/2023 COMPL ETE BLOOD COUNT W/DIF F MCH 28.0 pg 27.0-3 3.0 normal Not Available [address] [place], [address] 07/04/2023 06:19:05 07/04/19 24 07/04/2023 COMPL ETE BLOOD COUNT W/DIF F MCHC 32.8 % 32.0-3 6.0 normal Not Available [address] [place], [address] 07/04/2023 06:19:05 07/04/19 24 07/04/2023 COMPL ETE BLOOD COUNT W/DIF F RDW 16.0 % 11.7-1 4.6 high Not Available [address] [place], [address] 07/04/2023 06:19:05 07/04/19 24 07/04/2023 COMPL ETE BLOOD COUNT W/DIF F platelet count 200 10_3/ uL 130-40 0 normal Not Available [address] [place], [address] 07/04/2023 06:19:05 07/04/19 24 07/04/2023 COMPL ETE BLOOD COUNT W/DIF F MPV 11.3 fL 8.0-11 .0 high Not Available [address] [place], [address] 07/04/2023 06:19:05 07/04/19 24 07/04/2023 COMPL ETE BLOOD COUNT W/DIF F neutrophils % 57.8 Not Available [address] [place], [address] 07/04/2023 06:19:05 07/04/19 24 07/04/2023 COMPL ETE BLOOD COUNT W/DIF F lymphocytes % 31.2 Not Available [address], [address] 07/04/2023 06:19:05 07/04/19 24 07/04/2023 COMPL ETE BLOOD COUNT W/DIF F monocytes % 8.9 Not Available [address] [place], [address] 07/04/2023 06:19:05 07/04/19 24 07/04/2023 COMPL ETE BLOOD COUNT W/DIF F eosinophils % 1.2 Not Available [address], [address] 07/04/2023 06:19:05 07/04/19 24 07/04/2023 COMPL ETE BLOOD COUNT W/DIF F basophils % 0.7 Not Available [address], [address] 07/04/2023 06:19:05 07/04/19 24 07/04/2023 COMPL ETE BLOOD COUNT W/DIF F immature grans % 0.2 Not Available [address] [place], [address] 07/04/2023 06:19:05 07/04/19 24 07/04/2023 COMPL ETE BLOOD COUNT W/DIF F nucleated RBC 0.0 % 0.0-0. 3 normal Not Available [address] [place], [address] 07/04/2023 06:19:05 07/04/19 24 07/04/2023 COMPL ETE BLOOD COUNT W/DIF F absolute neutrophil count 5.15 10_3/ uL 1.2-6. 7 normal Not Available [address] [place], [address] 07/04/2023 06:19:05 07/04/19 24 07/04/2023 COMPL ETE BLOOD COUNT W/DIF F absolute lymphocyte count 2.78 10_3/ uL 1.2-3. 4 normal Not Available [address] [place], [address] 07/04/2023 06:19:05 07/04/19 24 07/04/2023 COMPL ETE BLOOD COUNT W/DIF F absolute monocyte count 0.79 10_3/ uL 0.1-0. 8 normal Not Available [address] [place], [address] 07/04/2023 06:19:05 07/04/19 24 07/04/2023 COMPL ETE BLOOD COUNT W/DIF F absolute eosinophil count 0.11 10_3/ uL 0.0-0. 7 normal Not Available [address] [place], [address] 07/04/2023 06:19:05 07/04/19 24 07/04/2023 COMPL ETE BLOOD COUNT W/DIF F absolute basophil count 0.06 10_3/ uL 0.0-0. 2 normal Not Available [address] [place], [address] 07/04/2023 06:19:05 07/04/19 24 07/04/2023 BASIC METAB OLIC PANEL calcium 9.4 mg/dL 8.5-10 .1 normal Not Available [address] [place], [address] 07/04/2023 06:31:05 07/04/19 24 07/04/2023 BASIC METAB OLIC PANEL glucose 152 mg/dL 74-106 high Not Available Medardo tarango [address] [place], [address] 07/04/2023 06:31:05 07/04/19 24 07/04/2023 BASIC METAB OLIC PANEL BUN 31 mg/dL 7-18 high Not Available Medardo tarango [address] [place], [address] 07/04/2023 06:31:05 07/04/19 24 07/04/2023 BASIC METAB OLIC PANEL creatinine 0.8 mg/dL 0.55-1 .02 normal Not Available [address] [place], [address] 07/04/2023 06:31:05 07/04/19 24 07/04/2023 BASIC METAB [...] young er-ag ed adult s. Not Available [address] [place], [address] 07/04/2023 06:31:05 07/04/1907/04/2023 BASIC METAB OLIC PANEL sodium 140 mmol/ L 136-14 5 normal Not Available [address] [place], [address] 07/04/2023 06:31:05 07/04/1907/04/2023 BASIC METAB OLIC PANEL potassium 3.8 mmol/ L 3.5-5. 1 normal Not Available [address] [place], [address] 07/04/2023 06:31:05 07/04/1907/04/2023 BASIC METAB OLIC PANEL chloride 104 mmol/ L 98-107 normal Not Available [address] [place], [address] 07/04/2023 06:31:05 07/04/1907/04/2023 BASIC METAB OLIC PANEL CO2 29.8 mmol/ L 21.0-3 2.0 normal Not Available [address] [place], [address] 07/04/2023 06:31:05 07/04/1907/04/2023 BASIC METAB OLIC PANEL anion gap 6.2 mmol/ L 3-11 normal Not Available [address] [place], [address] 07/04/2023 06:31:05 07/04/1907/04/2023 MAGNE SIUM magnesium 1.9 mg/dL 1.8-2. 4 normal Not Available [address] [place], [address] 07/04/2023 06:31:05 07/04/19 24 07/04/2023 CARDI AC [...] Bioti n (Paola min B7). Not Available [address], [address] 07/04/2023 06:45:04 07/05/1907/05/2023 LAB ADD ON TEST lab add on test DONE Not Available [facility] [address] [place], [address] 07/05/2023 09:53:08 07/05/1907/05/2023 C-MICHELINE CTIVE PROTE IN C-reactive protein < 0.50 mg/dL <or=0. 5 Not Available [address] [place], [address] 07/05/2023 11:32:23 07/05/1907/05/2023 PROCA LCITO MONI procalcitoni n < 0.1 [...] se, among other cause s. Not Available [address] , [place], [address] 07/05/2023 11:57:31 07/30/19 24 07/30/2023 hemog lobin A1C, finge rstic k hemoglobin A1C 6.4 % <5.7 Not Available [address], [address], 07/30/2023 11:23:08 12/03/19 24 12/03/2023 VAGIN AL PATHO GEN SCREE N vaginal pathogen screen Vagin al Patho gen Scree n EZEKIEL DA NEGAT YISSEL GARDN ERELL A NEGAT YISSEL TRICH OMONA S NEGAT YISSEL Not Available [facility] (Registration ) [address] [place] [address] [place], [address], 12/03/2023 19:23:28 12/03/19 24 12/03/2023 hemog lobin A1C, finge rstic k hemoglobin A1C 5.6 % <5.7 Not Available [address] [place], [address], 12/03/2023 11:17:58 02/29/2002/29/2024 TSH (W/RE F FT4) TSH (w/ref FT4) 2.11 uIU/m L 0.36-3 .74 normal Not Available [address], [address] 02/29/2024 21:12:55 02/29/2002/29/2024 CREAT INE KINAS E creatine kinase 24 U/L 26-192 low Not Available Puja burris [address] [place], [address] 02/29/2024 18:08:38 02/29/2002/29/2024 COMPR EHENS YISSEL METAB OLIC PANEL calcium 9.0 mg/dL 8.5-10 .1 normal Not Available [address] [place] [place], [address] 02/29/2024 18:08:37 02/29/2002/29/2024 COMPR EHENS YISSEL METAB OLIC PANEL glucose 131 mg/dL 74-106 high Not Available Medardo tarango [address] [place], [address] 02/29/2024 18:08:37 02/29/2002/29/2024 COMPR EHENS YISSEL METAB OLIC PANEL BUN 7 mg/dL 7-18 normal Not Available Medardo tarango [address] [place], [address] 02/29/2024 18:08:37 02/29/2002/29/2024 COMPR EHENS YISSEL METAB OLIC PANEL creatinine 0.8 mg/dL 0.55-1 .02 normal Not Available [address] [place], [address] 02/29/2024 18:08:37 02/29/2002/29/2024 COMPR EHENS YISSEL METAB OLIC PANEL estimated GFR 82.74 mL/min /1.73M 2 The eGFR is calcu lated from a serum creat inine using the CKD-E PI 2021 equat ion. Other varia bles requi red [...] young er-ag ed adult s. Not Available [address] [place], [address] 02/29/2024 18:08:37 02/29/20 24 02/29/2024 COMPR EHENS YISSEL METAB OLIC PANEL total protein 6.1 g/dL 6.4-8. 2 low Not Available [address] [place], [address] 02/29/2024 18:08:37 02/29/20 24 02/29/2024 COMPR EHENS YISSEL METAB OLIC PANEL albumin 2.7 g/dL 3.4-5. 0 low Not Available [address] [place], [address] 02/29/2024 18:08:37 02/29/20 24 02/29/2024 COMPR EHENS YISSEL METAB OLIC PANEL bilirubin, total 0.40 mg/dL 0.2-1. 0 normal Not Available [address] [place], [address] 02/29/2024 18:08:37 02/29/20 24 02/29/2024 COMPR EHENS YISSEL METAB OLIC PANEL alk phos 108 U/L 46-116 normal Not Available [address] [place], [address] 02/29/2024 18:08:37 02/29/20 24 02/29/2024 COMPR EHENS YISSEL METAB OLIC PANEL sodium 144 mmol/ L 136-14 5 normal Not Available [address] [place], [address] 02/29/2024 18:08:37 02/29/20 24 02/29/2024 COMPR EHENS YISSEL METAB OLIC PANEL potassium 3.7 mmol/ L 3.5-5. 1 normal Not Available [address] [place], [address] 02/29/2024 18:08:37 02/29/2002/29/2024 COMPR EHENS YISSEL METAB OLIC PANEL chloride 107 mmol/ L 98-107 normal Not Available [address] [place], [address] 02/29/2024 18:08:37 02/29/2002/29/2024 COMPR EHENS YISSEL METAB OLIC PANEL CO2 32.2 mmol/ L 21.0-3 2.0 high Not Available [address] [place], [address] 02/29/2024 18:08:37 02/29/2002/29/2024 COMPR EHENS YISSEL METAB OLIC PANEL anion gap 4.8 mmol/ L 3-11 normal Not Available [address] [place], [address] 02/29/2024 18:08:37 02/29/2002/29/2024 COMPR EHENS YISSEL METAB OLIC PANEL AST 15 U/L 15-37 normal Not Available Medardo [address] [place], [address] 02/29/2024 18:08:37 02/29/2002/29/2024 COMPR EHENS YISSEL METAB OLIC PANEL ALT 19 U/L 14-59 normal Not Available Medardo [address] [place], [address] 02/29/2024 18:08:37 02/29/2002/29/2024 PROTH ROMBI N TIME prothrombin time 9.5 sec 9.1-11 .1 normal Not Available [address] [place], [address] 02/29/2024 18:02:36 02/29/2002/29/2024 PROTH ROMBI N TIME INR 0.9 0.9-1. 1 normal Recom florencio d INR thera peuti c range s for orall y admin ister ed drugs are as follo ws: -Nitin dard Inten sity 2.0 to 3.0 -High er Inten sity 3.0 to 4.5 Not Available [address] [place], [address] 02/29/2024 18:02:36 02/29/2002/29/2024 COMPL ETE BLOOD COUNT W/DIF F WBC 8.55 10_3/ uL 4.4-10 .8 normal Not Available [address] [place], [address] 02/29/2024 17:51:36 02/29/2002/29/2024 COMPL ETE BLOOD COUNT W/DIF F RBC 4.49 10_6/ uL 3.93-5 .22 normal Not Available [address] [place], [address] 02/29/2024 17:51:36 02/29/2002/29/2024 COMPL ETE BLOOD COUNT W/DIF F HGB 13.2 g/dL 11.2-1 5.7 normal Not Available [address] [place], [address] 02/29/2024 17:51:36 02/29/2002/29/2024 COMPL ETE BLOOD COUNT W/DIF F HCT 40.8 % 36.0-4 6.0 normal Not Available [address] [place], [address] 02/29/2024 17:51:36 02/29/2002/29/2024 COMPL ETE BLOOD COUNT W/DIF F MCV 91 fL 80-95 normal Not Available Medardo tarango [address] [place], [address] 02/29/2024 17:51:36 02/29/2002/29/2024 COMPL ETE BLOOD COUNT W/DIF F MCH 29.4 pg 27.0-3 3.0 normal Not Available [address] [place], [address] 02/29/2024 17:51:36 02/29/2002/29/2024 COMPL ETE BLOOD COUNT W/DIF F MCHC 32.4 % 32.0-3 6.0 normal Not Available [address] [place], [address] 02/29/2024 17:51:36 02/29/20 24 02/29/2024 COMPL ETE BLOOD COUNT W/DIF F RDW 13.7 % 11.7-1 4.6 normal Not Available [address] [place], [address] 02/29/2024 17:51:36 02/29/20 24 02/29/2024 COMPL ETE BLOOD COUNT W/DIF F platelet count 119 10_3/ uL 130-40 0 low Not Available [address] [place], [address] 02/29/2024 17:51:36 02/29/2002/29/2024 COMPL ETE BLOOD COUNT W/DIF F MPV 11.5 fL 8.0-11 .0 high Not Available [address] [place], [address] 02/29/2024 17:51:36 02/29/2002/29/2024 COMPL ETE BLOOD COUNT W/DIF F neutrophils % 68.5 % Not Available [address] [facility] [place], [address] 02/29/2024 17:51:36 02/29/2002/29/2024 COMPL ETE BLOOD COUNT W/DIF F lymphocytes % 19.8 % Not Available [address] [place], [address] 02/29/2024 17:51:36 02/29/20 24 02/29/2024 COMPL ETE BLOOD COUNT W/DIF F monocytes % 8.5 % Not Available [address] [place], [address] 02/29/2024 17:51:36 02/29/2002/29/2024 COMPL ETE BLOOD COUNT W/DIF F eosinophils % 2.0 % Not Available [address] [facility] [place], [address] 02/29/2024 17:51:36 02/29/20 24 02/29/2024 COMPL ETE BLOOD COUNT W/DIF F basophils % 0.4 % Not Available [address] [place], [address] 02/29/2024 17:51:36 02/29/2002/29/2024 COMPL ETE BLOOD COUNT W/DIF F immature grans % 0.8 % Not Available Puja burris [address] [place], [address] 02/29/2024 17:51:36 02/29/2002/29/2024 COMPL ETE BLOOD COUNT W/DIF F nucleated RBC 0.0 % 0.0-0. 3 normal Not Available [address] [place], [address] 02/29/2024 17:51:36 02/29/2002/29/2024 COMPL ETE BLOOD COUNT W/DIF F absolute neutrophil count 5.86 10_3/ uL 1.2-6. 7 normal Not Available [address] [place], [address] 02/29/2024 17:51:36 02/29/2002/29/2024 COMPL ETE BLOOD COUNT W/DIF F absolute lymphocyte count 1.69 10_3/ uL 1.2-3. 4 normal Not Available [address] [place], [address] 02/29/2024 17:51:36 02/29/20 24 02/29/2024 COMPL ETE BLOOD COUNT W/DIF F absolute monocyte count 0.73 10_3/ uL 0.1-0. 8 normal Not Available [address] [place], [address] 02/29/2024 17:51:36 02/29/2002/29/2024 COMPL ETE BLOOD COUNT W/DIF F absolute eosinophil count 0.17 10_3/ uL 0.0-0. 7 normal Not Available [address] [place], [address] 02/29/2024 17:51:36 02/29/2002/29/2024 COMPL ETE BLOOD COUNT W/DIF F absolute basophil count 0.03 10_3/ uL 0.0-0. 2 normal Not Available [address] [place], [address] 02/29/2024 17:51:36 03/01/2003/02/2024 TROPO MONI I troponin I 5 NG/L <or=51 An eleva gabbie/a bnorm al tropo moni value above 51ng/ L for Femal e and above 76ng/ L for Male( which is the 99th perce ntile cutof f [...] Bioti n (Paola min B7). Not Available [address] [place], [address] 03/02/2024 00:32:25 03/01/2003/01/2024 HEMOG LOBIN /GEOVANNY TOCRI T HGB 11.2 g/dL 11.2-1 5.7 Not Available [address] [place], [address] 03/01/2024 23:05:20 03/01/2003/01/2024 HEMOG LOBIN /GEOVANNY TOCRI T HCT 34.6 % 36.0-4 6.0 low Not Available [address] [place], [address] 03/01/2024 23:05:20 03/01/2003/01/2024 HEMOG LOBIN /GEOVANNY TOCRI T HGB 13.3 g/dL 11.2-1 5.7 normal Not Available [address] [place], [address] 03/01/2024 20:44:12 03/01/2003/01/2024 HEMOG LOBIN /GEOVANNY TOCRI T HCT 41.2 % 36.0-4 6.0 normal Not Available [address] [place], [address] 03/01/2024 20:44:12 03/01/2003/01/2024 BASIC METAB OLIC PANEL calcium 9.2 mg/dL 8.5-10 .1 normal Not Available [address] [place], [address] 03/01/2024 07:27:41 03/01/2003/01/2024 BASIC METAB OLIC PANEL glucose 81 mg/dL 74-106 normal Not Available Medardo tarango [address] [place], [address] 03/01/2024 07:27:41 03/01/2003/01/2024 BASIC METAB OLIC PANEL BUN 7 mg/dL 7-18 normal Not Available Medardo tarango [address] [place], [address] 03/01/2024 07:27:41 03/01/2003/01/2024 BASIC METAB OLIC PANEL creatinine 0.7 mg/dL 0.55-1 .02 normal Not Available [address] [place], [address] 03/01/2024 07:27:41 03/01/2003/01/2024 BASIC METAB OLIC PANEL estimated GFR 97.12 mL/min /1.73M 2 The eGFR is calcu [...] young er-ag ed adult s. Not Available [address], [address] 03/01/2024 07:27:41 03/01/2003/01/2024 BASIC METAB OLIC PANEL sodium 143 mmol/ L 136-14 5 normal Not Available [address] [place], [address] 03/01/2024 07:27:41 03/01/2003/01/2024 BASIC METAB OLIC PANEL potassium 3.8 mmol/ L 3.5-5. 1 normal Not Available [address] [place], [address] 03/01/2024 07:27:41 03/01/2003/01/2024 BASIC METAB OLIC PANEL chloride 105 mmol/ L 98-107 normal Not Available [address] [place], [address] 03/01/2024 07:27:41 03/01/2003/01/2024 BASIC METAB OLIC PANEL CO2 30.6 mmol/ L 21.0-3 2.0 normal Not Available [address] [place], [address] 03/01/2024 07:27:41 03/01/2003/01/2024 BASIC METAB OLIC PANEL anion gap 7.4 mmol/ L 3-11 normal Not Available [address] [place], [address] 03/01/2024 07:27:41 03/01/2003/01/2024 COMPL ETE BLOOD COUNT NO DIFF WBC 5.64 10_3/ uL 4.4-10 .8 normal Not Available [address] [place], [address] 03/01/2024 07:22:41 03/01/2003/01/2024 COMPL ETE BLOOD COUNT NO DIFF RBC 4.68 10_6/ uL 3.93-5 .22 normal Not Available [address] [place], [address] 03/01/2024 07:22:41 03/01/2003/01/2024 COMPL ETE BLOOD COUNT NO DIFF HGB 13.6 g/dL 11.2-1 5.7 normal Not Available [address] [place], [address] 03/01/2024 07:22:41 03/01/2003/01/2024 COMPL ETE BLOOD COUNT NO DIFF HCT 41.7 % 36.0-4 6.0 normal Not Available [address] [place], [address] 03/01/2024 07:22:41 03/01/2003/01/2024 COMPL ETE BLOOD COUNT NO DIFF MCV 89 fL 80-95 normal Not Available Medardo [address] [place], [address] 03/01/2024 07:22:41 03/01/2003/01/2024 COMPL ETE BLOOD COUNT NO DIFF MCH 29.1 pg 27.0-3 3.0 normal Not Available [address] [place], [address] 03/01/2024 07:22:41 03/01/2003/01/2024 COMPL ETE BLOOD COUNT NO DIFF MCHC 32.6 % 32.0-3 6.0 normal Not Available [address] [place], [address] 03/01/2024 07:22:41 03/01/2003/01/2024 COMPL ETE BLOOD COUNT NO DIFF RDW 13.3 % 11.7-1 4.6 normal Not Available [address] [place], [address] 03/01/2024 07:22:41 03/01/2003/01/2024 COMPL ETE BLOOD COUNT NO DIFF platelet count 102 10_3/ uL 130-40 0 low Not Available [address] [place], [address] 03/01/2024 07:22:41 03/01/2003/01/2024 COMPL ETE BLOOD COUNT NO DIFF MPV 11.6 fL 8.0-11 .0 high Not Available [address] [place], [address] 03/01/2024 07:22:41 03/02/2003/02/2024 VITAM IN D 25 TOTAL vitamin D 25 total 13.5 NG/mL 30-100 low Refer ence Guide lines : Defic ient: <10 ng/ml Insuf ficie nt: 10-30 ng/ml Suffi cient : 30-10 0 ng/ml Toxic : >100 ng/ml Not Available [address] [place], [address] 03/02/2024 07:05:23 03/02/2003/02/2024 COMPL ETE BLOOD COUNT NO DIFF WBC 8.81 10_3/ uL 4.4-10 .8 normal Not Available [address] [place], [address] 03/02/2024 06:46:20 03/02/2003/02/2024 COMPL ETE BLOOD COUNT NO DIFF RBC 4.37 10_6/ uL 3.93-5 .22 normal Not Available [address] [place], [address] 03/02/2024 06:46:20 03/02/2003/02/2024 COMPL ETE BLOOD COUNT NO DIFF HGB 12.9 g/dL 11.2-1 5.7 Not Available [address] [place], [address] 03/02/2024 06:46:20 03/02/2003/02/2024 COMPL ETE BLOOD COUNT NO DIFF HCT 39.5 % 36.0-4 6.0 normal Not Available [address] [place], [address] 03/02/2024 06:46:20 03/02/2003/02/2024 COMPL ETE BLOOD COUNT NO DIFF MCV 90 fL 80-95 normal Not Available [address] [place], [address] 03/02/2024 06:46:20 03/02/2003/02/2024 COMPL ETE BLOOD COUNT NO DIFF MCH 29.5 pg 27.0-3 3.0 normal Not Available [address] [place], [address] 03/02/2024 06:46:20 03/02/2003/02/2024 COMPL ETE BLOOD COUNT NO DIFF MCHC 32.7 % 32.0-3 6.0 normal Not Available [address] [place], [address] 03/02/2024 06:46:20 03/02/2003/02/2024 COMPL ETE BLOOD COUNT NO DIFF RDW 13.5 % 11.7-1 4.6 normal Not Available [address] [place], [address] 03/02/2024 06:46:20 03/02/2003/02/2024 COMPL ETE BLOOD COUNT NO DIFF platelet count 81 10_3/ uL 130-40 0 low Plate let count verif ied by smear estim ate. Not Available [address] [place], [address] 03/02/2024 06:46:20 03/02/2003/02/2024 COMPL ETE BLOOD COUNT NO DIFF MPV 11.7 fL 8.0-11 .0 high Not Available [address] [place], [address] 03/02/2024 06:46:20 03/02/2003/02/2024 TROPO MONI I troponin I 20 NG/L <or=51 An eleva gabbie/a bnorm al tropo moni value above 51ng/ L for Femal e and above 76ng/ L for Male( which is the 99th perce ntile cutof f [...] Bioti n (Paola min B7). Not Available [address] [place], [address] 03/02/2024 06:44:19 03/02/2003/02/2024 BASIC METAB OLIC PANEL calcium 8.6 mg/dL 8.5-10 .1 normal Not Available [address] [place], [address] 03/02/2024 06:39:21 03/02/2003/02/2024 BASIC METAB OLIC PANEL glucose 262 mg/dL 74-106 high Not Available Medardo tarango [address] [place], [address] 03/02/2024 06:39:21 10/24/20 24 03/02/2024 BASIC METAB OLIC PANEL BUN 11 mg/dL 7-18 normal Not Available Medardo tarango [address] [place], [address] 03/02/2024 06:39:21 03/02/2003/02/2024 BASIC METAB OLIC PANEL creatinine 0.9 mg/dL 0.55-1 .02 normal Not Available [address] [place], [address] 03/02/2024 06:39:21 03/02/2003/02/2024 BASIC METAB OLIC PANEL estimated GFR 71.83 mL/min /1.73M 2 The eGFR is calcu [...] young er-ag ed adult s. Not Available [address] [place], [address] 03/02/2024 06:39:21 03/02/2003/02/2024 BASIC METAB OLIC PANEL sodium 141 mmol/ L 136-14 5 normal Not Available [address], [address] 03/02/2024 06:39:21 03/02/2003/02/2024 BASIC METAB OLIC PANEL potassium 4.2 mmol/ L 3.5-5. 1 normal Not Available [address] [place], [address] 03/02/2024 06:39:21 03/02/2003/02/2024 BASIC METAB OLIC PANEL chloride 106 mmol/ L 98-107 normal Not Available [address] [place], [address] 03/02/2024 06:39:21 03/02/2003/02/2024 BASIC METAB OLIC PANEL CO2 26.3 mmol/ L 21.0-3 2.0 normal Not Available [address] [facility] [place], [address] 03/02/2024 06:39:21 03/02/2003/02/2024 BASIC METAB OLIC PANEL anion gap 8.7 mmol/ L 3-11 normal Not Available [address] [place], [address] 03/02/2024 06:39:21 03/02/2003/02/2024 TROPO MONI I troponin I 6 NG/L <or=51 An eleva gabbie/a bnorm al tropo moni value above 51ng/ L for Femal e and above 76ng/ L for Male( which is the 99th perce ntile cutof f [...] Bioti n (Paola min B7). Not Available [address] [facility] [place], [address] 03/02/2024 01:59:37 03/02/2003/02/2024 HEMOG LOBIN /GEOVANNY TOCRI T HGB 9.4 g/dL 11.2-1 5.7 low Not Available [address] [place], [address] 03/02/2024 01:44:03 03/02/2003/02/2024 HEMOG LOBIN /GEOVANNY TOCRI T HCT 29.7 % 36.0-4 6.0 low Not Available [address] [place], [address] 03/02/2024 01:44:03 03/03/2003/03/2024 COMPL ETE BLOOD COUNT NO DIFF WBC 12.29 10_3/ uL 4.4-10 .8 high Not Available [address] [place], [address] 03/03/2024 07:37:44 03/03/2003/03/2024 COMPL ETE BLOOD COUNT NO DIFF RBC 4.24 10_6/ uL 3.93-5 .22 normal Not Available [address] [place], [address] 03/03/2024 07:37:44 03/03/2003/03/2024 COMPL ETE BLOOD COUNT NO DIFF HGB 12.4 g/dL 11.2-1 5.7 normal Not Available [address] [place], [address] 03/03/2024 07:37:44 03/03/2003/03/2024 COMPL ETE BLOOD COUNT NO DIFF HCT 37.2 % 36.0-4 6.0 normal Not Available [address] [place], [address] 03/03/2024 07:37:44 03/03/2003/03/2024 COMPL ETE BLOOD COUNT NO DIFF MCV 88 fL 80-95 normal Not Available Medardo [address] [place], [address] 03/03/2024 07:37:44 03/03/2003/03/2024 COMPL ETE BLOOD COUNT NO DIFF MCH 29.2 pg 27.0-3 3.0 normal Not Available [address] [place], [address] 03/03/2024 07:37:44 03/03/2003/03/2024 COMPL ETE BLOOD COUNT NO DIFF MCHC 33.3 % 32.0-3 6.0 normal Not Available [address] [place], [address] 03/03/2024 07:37:44 03/03/2003/03/2024 COMPL ETE BLOOD COUNT NO DIFF RDW 14.3 % 11.7-1 4.6 normal Not Available [address] [place], [address] 03/03/2024 07:37:44 03/03/2003/03/2024 COMPL ETE BLOOD COUNT NO DIFF platelet count 90 10_3/ uL 130-40 0 low Plate let count verif ied by smear estim ate. Not Available [address] [place], [address] 03/03/2024 07:37:44 03/03/2003/03/2024 COMPL ETE BLOOD COUNT NO DIFF MPV 11.7 fL 8.0-11 .0 high Not Available [address] [place], [address] 03/03/2024 07:37:44 03/03/2003/03/2024 BASIC METAB OLIC PANEL calcium 9.3 mg/dL 8.5-10 .1 normal Not Available [address] [place], [address] 03/03/2024 07:33:40 03/03/2003/03/2024 BASIC METAB OLIC PANEL glucose 96 mg/dL 74-106 normal Not Available Medardo tarango [address] [place], [address] 03/03/2024 07:33:40 03/03/2003/03/2024 BASIC METAB OLIC PANEL BUN 21 mg/dL 7-18 high Not Available Medardo tarango [address] [facility] [place], [address] 03/03/2024 07:33:40 03/03/2003/03/2024 BASIC METAB OLIC PANEL creatinine 0.8 mg/dL 0.55-1 .02 normal Not Available [address] [place], [address] 03/03/2024 07:33:40 03/03/2003/03/2024 BASIC METAB OLIC PANEL estimated GFR 82.74 [...] young er-ag ed adult s. Not Available [address] [place], [address] 03/03/2024 07:33:40 03/03/2003/03/2024 BASIC METAB OLIC PANEL sodium 146 mmol/ L 136-14 5 high Not Available [address] [place], [address] 03/03/2024 07:33:40 03/03/2003/03/2024 BASIC METAB OLIC PANEL potassium 4.0 mmol/ L 3.5-5. 1 normal Not Available [address] [place], [address] 03/03/2024 07:33:40 03/03/2003/03/2024 BASIC METAB OLIC PANEL chloride 107 mmol/ L 98-107 normal Not Available [address] [place], [address] 03/03/2024 07:33:40 03/03/2003/03/2024 BASIC METAB OLIC PANEL CO2 31.0 mmol/ L 21.0-3 2.0 normal Not Available [address] [place], [address] 03/03/2024 07:33:40 03/03/2003/03/2024 BASIC METAB OLIC PANEL anion gap 8.0 mmol/ L 3-11 normal Not Available [address] [place], [address] 03/03/2024 07:33:40 03/03/2003/03/2024 BASIC METAB OLIC PANEL calcium 9.3 mg/dL 8.5-10 .1 normal Not Available [address] [place], [address] 03/03/2024 01:22:19 03/03/2003/03/2024 BASIC METAB OLIC PANEL glucose 116 mg/dL 74-106 high Not Available Medardo tarango [address] [place], [address] 03/03/2024 01:22:19 03/03/20 24 03/03/2024 BASIC METAB OLIC PANEL BUN 21 mg/dL 7-18 high Not Available Medardo tarango [address] [place], [address] 03/03/2024 01:22:19 03/03/2003/03/2024 BASIC METAB OLIC PANEL creatinine 0.8 mg/dL 0.55-1 .02 normal Not Available [address] [place], [address] 03/03/2024 01:22:19 03/03/2003/03/2024 BASIC METAB OLIC PANEL estimated GFR 82.74 [...] young er-ag ed adult s. Not Available [address] [place], [address] 03/03/2024 01:22:19 03/03/2003/03/2024 BASIC METAB OLIC PANEL sodium 145 mmol/ L 136-14 5 normal Not Available [address] [place], [address] 03/03/2024 01:22:19 03/03/2003/03/2024 BASIC METAB OLIC PANEL potassium 4.4 mmol/ L 3.5-5. 1 normal Not Available [address] [place], [address] 03/03/2024 01:22:19 03/03/2003/03/2024 BASIC METAB OLIC PANEL chloride 109 mmol/ L 98-107 high Not Available [address] [place], [address] 03/03/2024 01:22:19 03/03/2003/03/2024 BASIC METAB OLIC PANEL CO2 29.1 mmol/ L 21.0-3 2.0 normal Not Available [address] [place], [address] 03/03/2024 01:22:19 03/03/2003/03/2024 BASIC METAB OLIC PANEL anion gap 6.9 mmol/ L 3-11 normal Not Available [address] [place], [address] 03/03/2024 01:22:19 03/03/2003/03/2024 COMPL ETE BLOOD COUNT W/DIF F WBC 9.74 10_3/ uL 4.4-10 .8 normal Not Available [address] [place], [address] 03/03/2024 01:22:17 03/03/2003/03/2024 COMPL ETE BLOOD COUNT W/DIF F RBC 4.51 10_6/ uL 3.93-5 .22 normal Not Available [address] [place], [address] 03/03/2024 01:22:17 03/03/2003/03/2024 COMPL ETE BLOOD COUNT W/DIF F HGB 13.2 g/dL 11.2-1 5.7 normal Not Available [address] [place], [address] 03/03/2024 01:22:17 03/03/2003/03/2024 COMPL ETE BLOOD COUNT W/DIF F HCT 39.5 % 36.0-4 6.0 normal Not Available [address] [place], [address] 03/03/2024 01:22:17 03/03/2003/03/2024 COMPL ETE BLOOD COUNT W/DIF F MCV 88 fL 80-95 normal Not Available [address] [place], [address] 03/03/2024 01:22:17 03/03/2003/03/2024 COMPL ETE BLOOD COUNT W/DIF F MCH 29.3 pg 27.0-3 3.0 normal Not Available [address] [place], [address] 03/03/2024 01:22:17 03/03/2003/03/2024 COMPL ETE BLOOD COUNT W/DIF F MCHC 33.4 % 32.0-3 6.0 normal Not Available [address] [place], [address] 03/03/2024 01:22:17 03/03/20 24 03/03/2024 COMPL ETE BLOOD COUNT W/DIF F RDW 14.2 % 11.7-1 4.6 normal Not Available [address] [place], [address] 03/03/2024 01:22:17 03/03/20 24 03/03/2024 COMPL ETE BLOOD COUNT W/DIF F platelet count 83 10_3/ uL 130-40 0 low Plate let count verif ied by smear estim ate. Not Available [address] [place], [address] 03/03/2024 01:22:17 03/03/20 24 03/03/2024 COMPL ETE BLOOD COUNT W/DIF F MPV 11.4 fL 8.0-11 .0 high Not Available [address] [place], [address] 03/03/2024 01:22:17 03/03/20 24 03/03/2024 COMPL ETE BLOOD COUNT W/DIF F neutrophils % 65.4 % Not Available [address] [place], [address] 03/03/2024 01:22:17 03/03/20 24 03/03/2024 COMPL ETE BLOOD COUNT W/DIF F lymphocytes % 21.0 % Not Available [address] [facility] [place], [address] 03/03/2024 01:22:17 03/03/20 24 03/03/2024 COMPL ETE BLOOD COUNT W/DIF F monocytes % 10.7 % Not Available [address] [place], [address] 03/03/2024 01:22:17 03/03/20 24 03/03/2024 COMPL ETE BLOOD COUNT W/DIF F eosinophils % 0.8 % Not Available [address] [place], [address] 03/03/2024 01:22:17 03/03/2003/03/2024 COMPL ETE BLOOD COUNT W/DIF F basophils % 0.6 % Not Available [address] [place], [address] 03/03/2024 01:22:17 03/03/20 24 03/03/2024 COMPL ETE BLOOD COUNT W/DIF F immature grans % 1.5 % Not Available [address] [place], [address] 03/03/2024 01:22:17 03/03/2003/03/2024 COMPL ETE BLOOD COUNT W/DIF F nucleated RBC 0.3 % 0.0-0. 3 normal Not Available [address] [place], [address] 03/03/2024 01:22:17 03/03/2003/03/2024 COMPL ETE BLOOD COUNT W/DIF F absolute neutrophil count 6.36 10_3/ uL 1.2-6. 7 normal Not Available [address] [place], [address] 03/03/2024 01:22:17 03/03/20 24 03/03/2024 COMPL ETE BLOOD COUNT W/DIF F absolute lymphocyte count 2.05 10_3/ uL 1.2-3. 4 normal Not Available [address] [place], [address] 03/03/2024 01:22:17 03/03/20 24 03/03/2024 COMPL ETE BLOOD COUNT W/DIF F absolute monocyte count 1.04 10_3/ uL 0.1-0. 8 high Not Available [address] [place], [address] 03/03/2024 01:22:17 03/03/20 24 03/03/2024 COMPL ETE BLOOD COUNT W/DIF F absolute eosinophil count 0.08 10_3/ uL 0.0-0. 7 normal Not Available [address] [place], [address] 03/03/2024 01:22:17 03/03/20 24 03/03/2024 COMPL ETE BLOOD COUNT W/DIF F absolute basophil count 0.06 10_3/ uL 0.0-0. 2 normal Not Available [address] [facility] [place], [address] 03/03/2024 01:22:17 03/04/20 24 03/05/2024 MAGNE SIUM magnesium 1.9 mg/dL 1.8-2. 4 normal Not Available [address] [place], [address] 03/05/2024 00:29:24 03/04/2003/05/2024 COMPR EHENS YISSEL METAB OLIC PANEL calcium 8.8 mg/dL 8.5-10 .1 normal Not Available [address] [facility] [place], [address] 03/05/2024 00:29:23 03/04/2003/05/2024 COMPR EHENS YISSEL METAB OLIC PANEL glucose 81 mg/dL 74-106 normal Not Available Medardo [address] [facility] [place], [address] 03/05/2024 00:29:23 03/04/2003/05/2024 COMPR EHENS YISSEL METAB OLIC PANEL BUN 16 mg/dL 7-18 normal Not Available [address] [facility] [place], [address] 03/05/2024 00:29:23 03/04/2003/05/2024 COMPR EHENS YISSEL METAB OLIC PANEL creatinine 0.6 mg/dL 0.55-1 .02 normal Not Available [address] [place] [facility] [place], [address] 03/05/2024 00:29:23 03/04/2003/05/2024 COMPR EHENS YISSEL METAB OLIC PANEL estimated GFR 100.80 mL/min /1.73M 2 The eGFR is calcu [...] young er-ag ed adult s. Not Available [address], [address] 03/05/2024 00:29:23 03/04/2003/05/2024 COMPR EHENS YISSEL METAB OLIC PANEL total protein 4.7 g/dL 6.4-8. 2 low Not Available [address], [address] 03/05/2024 00:29:23 03/04/2003/05/2024 COMPR EHENS YISSEL METAB OLIC PANEL albumin 1.4 g/dL 3.4-5. 0 low Not Available [address], [address] 03/05/2024 00:29:23 03/04/2003/05/2024 COMPR EHENS YISSEL METAB OLIC PANEL bilirubin, total 0.37 mg/dL 0.2-1. 0 normal Not Available [address] [place], [address] 03/05/2024 00:29:23 03/04/2003/05/2024 COMPR EHENS YISSEL METAB OLIC PANEL alk phos 78 U/L 46-116 normal Not Available [address] [place], [address] 03/05/2024 00:29:23 03/04/2003/05/2024 COMPR EHENS YISSEL METAB OLIC PANEL sodium 145 mmol/ L 136-14 5 normal Not Available [address] [place], [address] 03/05/2024 00:29:23 03/04/2003/05/2024 COMPR EHENS YISSEL METAB OLIC PANEL potassium 4.5 mmol/ L 3.5-5. 1 normal Not Available [address] [place], [address] 03/05/2024 00:29:23 03/04/2003/05/2024 COMPR EHENS YISSEL METAB OLIC PANEL chloride 109 mmol/ L 98-107 high Not Available [address] [place], [address] 03/05/2024 00:29:23 03/04/2003/05/2024 COMPR EHENS YISSEL METAB OLIC PANEL CO2 32.9 mmol/ L 21.0-3 2.0 high Not Available [address] [place], [address] 03/05/2024 00:29:23 03/04/2003/05/2024 COMPR EHENS YISSEL METAB OLIC PANEL anion gap 3.1 mmol/ L 3-11 normal Not Available [address], [address] 03/05/2024 00:29:23 03/04/2003/05/2024 COMPR EHENS YISSEL METAB OLIC PANEL AST 35 U/L 15-37 normal Not Available Medadro tarango [address] [place], [address] 03/05/2024 00:29:23 03/04/2003/05/2024 COMPR EHENS YISSEL METAB OLIC PANEL ALT 21 U/L 14-59 normal Not Available Medardo tarango [address] [place], [address] 03/05/2024 00:29:23 03/04/2003/04/2024 URINA LYSIS color Yellow yellow Not Available Medardo tarango [address] [place], [address] 03/04/2024 19:00:08 03/04/2003/04/2024 URINA LYSIS clarity Clear clear Not Available Medardo tarango [address] [place], [address] 03/04/2024 19:00:08 03/04/2003/04/2024 URINA LYSIS specific gravity 1.020 1.005- 1.025 normal Not Available [address], [address] 03/04/2024 19:00:08 03/04/2003/04/2024 URINA LYSIS pH 7.0 5-8 normal Not Available Medardo tarango [address] [place], [address] 03/04/2024 19:00:08 03/04/2003/04/2024 URINA LYSIS leukocyte esterase Negati ve negati ve Not Available [address], [address] 03/04/2024 19:00:08 03/04/2003/04/2024 URINA LYSIS nitrite Negati ve negati ve Not Available [address], [address] 03/04/2024 19:00:08 03/04/2003/04/2024 URINA LYSIS protein Negati ve mg/dL neg-tr angus Not Available [address] [place], [address] 03/04/2024 19:00:08 03/04/2003/04/2024 URINA LYSIS glucose 500 mg/dL negati ve abnormal Not Available [address] [place], [address] 03/04/2024 19:00:08 03/04/2003/04/2024 URINA LYSIS ketones Negati ve mg/dL negati ve Not Available [address], [address] 03/04/2024 19:00:08 03/04/2003/04/2024 URINA LYSIS urobilinogen 1.0 mg/dL up to 0.2 abnormal Not Available [address], [address] 03/04/2024 19:00:08 03/04/2003/04/2024 URINA LYSIS bilirubin Negati ve negati ve Not Available [address], [address] 03/04/2024 19:00:08 03/04/2003/04/2024 URINA LYSIS blood Negati ve negati ve Not Available [address] [place], [address] 03/04/2024 19:00:08 03/04/2003/04/2024 BASIC METAB OLIC PANEL calcium 9.2 mg/dL 8.5-10 .1 normal Not Available [address] [place], [address] 03/04/2024 07:04:32 03/04/2003/04/2024 BASIC METAB OLIC PANEL glucose 80 mg/dL 74-106 normal Not Available Medardo tarango [address] [place], [address] 03/04/2024 07:04:32 03/04/2003/04/2024 BASIC METAB OLIC PANEL BUN 18 mg/dL 7-18 normal Not Available Medardo tarango [address] [place], [address] 03/04/2024 07:04:32 03/04/2003/04/2024 BASIC METAB OLIC PANEL creatinine 0.6 mg/dL 0.55-1 .02 normal Not Available [address] [place], [address] 03/04/2024 07:04:32 03/04/2003/04/2024 BASIC METAB OLIC PANEL estimated GFR 100.80 mL/min /1.73M 2 The eGFR is calcu [...] young er-ag ed adult s. Not Available [address] [place], [address] 03/04/2024 07:04:32 03/04/2003/04/2024 BASIC METAB OLIC PANEL sodium 147 mmol/ L 136-14 5 high Not Available [address] [place], [address] 03/04/2024 07:04:32 03/04/2003/04/2024 BASIC METAB OLIC PANEL potassium 4.7 mmol/ L 3.5-5. 1 normal Not Available [address] [place], [address] 03/04/2024 07:04:32 03/04/2003/04/2024 BASIC METAB OLIC PANEL chloride 109 mmol/ L 98-107 high Not Available [address] [place], [address] 03/04/2024 07:04:32 03/04/2003/04/2024 BASIC METAB OLIC PANEL CO2 33.9 mmol/ L 21.0-3 2.0 high Not Available [address] [place], [address] 03/04/2024 07:04:32 03/04/2003/04/2024 BASIC METAB OLIC PANEL anion gap 4.1 mmol/ L 3-11 normal Not Available [address], [address] 03/04/2024 07:04:32 03/05/2003/05/2024 COMPL ETE BLOOD COUNT NO DIFF WBC 6.09 10_3/ uL 4.4-10 .8 normal Not Available [address], [address] 03/05/2024 06:49:50 03/05/2003/05/2024 COMPL ETE BLOOD COUNT NO DIFF RBC 2.91 10_6/ uL 3.93-5 .22 low Not Available [address] [place], [address] 03/05/2024 06:49:50 03/05/2003/05/2024 COMPL ETE BLOOD COUNT NO DIFF HGB 8.6 g/dL 11.2-1 5.7 low 1+ HYPOC HROMA MADI Not Available [address] [place], [address] 03/05/2024 06:49:50 03/05/2003/05/2024 COMPL ETE BLOOD COUNT NO DIFF HCT 25.8 % 36.0-4 6.0 low Not Available [address] [place], [address] 03/05/2024 06:49:50 03/05/2003/05/2024 COMPL ETE BLOOD COUNT NO DIFF MCV 89 fL 80-95 normal Not Available Medardo tarango [address] [place], [address] 03/05/2024 06:49:50 03/05/2003/05/2024 COMPL ETE BLOOD COUNT NO DIFF MCH 29.6 pg 27.0-3 3.0 normal Not Available [address] [place], [address] 03/05/2024 06:49:50 03/05/2003/05/2024 COMPL ETE BLOOD COUNT NO DIFF MCHC 33.3 % 32.0-3 6.0 normal Not Available [address] [place], [address] 03/05/2024 06:49:50 03/05/2003/05/2024 COMPL ETE BLOOD COUNT NO DIFF RDW 14.6 % 11.7-1 4.6 normal Not Available [address] [place], [address] 03/05/2024 06:49:50 03/05/2003/05/2024 COMPL ETE BLOOD COUNT NO DIFF platelet count 81 10_3/ uL 130-40 0 low Resul t verif ied by repea t dennis sis Plate let count verif ied by smear estim ate. Not Available [address] [place], [address] 03/05/2024 06:49:50 03/05/2003/05/2024 COMPL ETE BLOOD COUNT NO DIFF MPV 10.9 fL 8.0-11 .0 normal Not Available [address] [place], [address] 03/05/2024 06:49:50 03/05/2003/05/2024 MAGNE SIUM magnesium 1.9 mg/dL 1.8-2. 4 normal Not Available [address] [place], [address] 03/05/2024 06:42:52 03/05/2003/05/2024 COMPR EHENS YISSEL METAB OLIC PANEL calcium 9.0 mg/dL 8.5-10 .1 normal Not Available [address] [place], [address] 03/05/2024 06:42:52 03/05/2003/05/2024 COMPR EHENS YISSEL METAB OLIC PANEL glucose 84 mg/dL 74-106 normal Not Available Medardo tarango [address] [place], [address] 03/05/2024 06:42:52 03/05/2003/05/2024 COMPR EHENS YISSEL METAB OLIC PANEL BUN 15 mg/dL 7-18 normal Not Available Medardo tarango [address] [place], [address] 03/05/2024 06:42:52 03/05/2003/05/2024 COMPR EHENS YISSEL METAB OLIC PANEL creatinine 0.6 mg/dL 0.55-1 .02 normal Not Available [address] [place], [address] 03/05/2024 06:42:52 03/05/2003/05/2024 COMPR EHENS YISSEL METAB OLIC PANEL estimated GFR 100.80 mL/min /1.73M 2 The eGFR is calcu [...] young er-ag ed adult s. Not Available [address] [place], [address] 03/05/2024 06:42:52 03/05/2003/05/2024 COMPR EHENS YISSEL METAB OLIC PANEL total protein 4.7 g/dL 6.4-8. 2 low Not Available [address] [place], [address] 03/05/2024 06:42:52 03/05/2003/05/2024 COMPR EHENS YISSEL METAB OLIC PANEL albumin 1.4 g/dL 3.4-5. 0 low Not Available [address] [place], [address] 03/05/2024 06:42:52 03/05/2003/05/2024 COMPR EHENS YISSEL METAB OLIC PANEL bilirubin, total 0.36 mg/dL 0.2-1. 0 normal Not Available [address] [place], [address] 03/05/2024 06:42:52 03/05/2003/05/2024 COMPR EHENS YISSEL METAB OLIC PANEL alk phos 70 U/L 46-116 normal Not Available [address] [place], [address] 03/05/2024 06:42:52 03/05/2003/05/2024 COMPR EHENS YISSEL METAB OLIC PANEL sodium 146 mmol/ L 136-14 5 high Not Available [address], [address] 03/05/2024 06:42:52 03/05/2003/05/2024 COMPR EHENS YISSEL METAB OLIC PANEL potassium 4.6 mmol/ L 3.5-5. 1 normal Not Available [address], [address] 03/05/2024 06:42:52 03/05/2003/05/2024 COMPR EHENS YISSEL METAB OLIC PANEL chloride 110 mmol/ L 98-107 high Not Available [address], [address] 03/05/2024 06:42:52 03/05/2003/05/2024 COMPR EHENS YISSEL METAB OLIC PANEL CO2 33.1 mmol/ L 21.0-3 2.0 high Not Available [address] [place], [address] 03/05/2024 06:42:52 03/05/2003/05/2024 COMPR EHENS YISSEL METAB OLIC PANEL anion gap 2.9 mmol/ L 3-11 low Not Available [address] [place], [address] 03/05/2024 06:42:52 03/05/2003/05/2024 COMPR EHENS YISSEL METAB OLIC PANEL AST 31 U/L 15-37 normal Not Available Medardo [address] [place], [address] 03/05/2024 06:42:52 03/05/2003/05/2024 COMPR EHENS YISSEL METAB OLIC PANEL ALT 18 U/L 14-59 normal Not Available Medardo [address] [place], [address] 03/05/2024 06:42:52 03/07/2003/07/2024 FOLAT E folate > 20.0 NG/mL 8.6-20 .0 high Not Available [address] [place], [address] 03/07/2024 13:33:14 03/07/2003/07/2024 VITAM IN B12 vitamin B12 927 pg/mL 193-98 6 normal Not Available [address] [place], [address] 03/07/2024 13:33:14 03/07/2003/07/2024 ROCIO TIN ferritin 204 NG/mL 8-252 normal Not Available [address] [place], [address] 03/07/2024 13:33:13 03/07/2003/07/2024 COMPR EHENS YISSEL METAB OLIC PANEL calcium 9.4 mg/dL 8.5-10 .1 normal Not Available [address] [place], [address] 03/07/2024 13:33:12 03/07/2003/07/2024 COMPR EHENS YISSEL METAB OLIC PANEL glucose 135 mg/dL 74-106 high Not Available Medardo [address] [place], [address] 03/07/2024 13:33:12 03/07/20 24 03/07/2024 COMPR EHENS YISSEL METAB OLIC PANEL BUN 12 mg/dL 7-18 normal Not Available Medardo tarango [address] [place], [address] 03/07/2024 13:33:12 03/07/2003/07/2024 COMPR EHENS YISSEL METAB OLIC PANEL creatinine 0.7 mg/dL 0.55-1 .02 normal Not Available [address] [place], [address] 03/07/2024 13:33:12 03/07/2003/07/2024 COMPR EHENS YISSEL METAB OLIC PANEL estimated GFR 97.12 mL/min /1.73M 2 The eGFR is calcu [...] young er-ag ed adult s. Not Available [address] [place], [address] 03/07/2024 13:33:12 03/07/20 24 03/07/2024 COMPR EHENS YISSEL METAB OLIC PANEL total protein 6.0 g/dL 6.4-8. 2 low Not Available [address] [place], [address] 03/07/2024 13:33:12 03/07/20 24 03/07/2024 COMPR EHENS YISSEL METAB OLIC PANEL albumin 2.1 g/dL 3.4-5. 0 low Not Available [address] [place], [address] 03/07/2024 13:33:12 03/07/20 24 03/07/2024 COMPR EHENS YISESL METAB OLIC PANEL bilirubin, total 0.45 mg/dL 0.2-1. 0 normal Not Available [address] [place], [address] 03/07/2024 13:33:12 03/07/2003/07/2024 COMPR EHENS YISSEL METAB OLIC PANEL alk phos 93 U/L 46-116 normal Not Available [address] [place], [address] 03/07/2024 13:33:12 03/07/20 24 03/07/2024 COMPR EHENS YISSEL METAB OLIC PANEL sodium 141 mmol/ L 136-14 5 normal Not Available [address] [place], [address] 03/07/2024 13:33:12 03/07/2003/07/2024 COMPR EHENS YISSEL METAB OLIC PANEL potassium 4.2 mmol/ L 3.5-5. 1 normal Not Available [address] [place], [address] 03/07/2024 13:33:12 03/07/20 24 03/07/2024 COMPR EHENS YISSEL METAB OLIC PANEL chloride 103 mmol/ L 98-107 normal Not Available [address] [place], [address] 03/07/2024 13:33:12 03/07/20 24 03/07/2024 COMPR EHENS YISSEL METAB OLIC PANEL CO2 30.6 mmol/ L 21.0-3 2.0 normal Not Available [address] [place], [address] 03/07/2024 13:33:12 03/07/20 24 03/07/2024 COMPR EHENS YISSEL METAB OLIC PANEL anion gap 7.4 mmol/ L 3-11 normal Not Available [address] [place], [address] 03/07/2024 13:33:12 03/07/20 24 03/07/2024 COMPR EHENS YISSEL METAB OLIC PANEL AST 26 U/L 15-37 normal Not Available Medardo tarango [address] [place], [address] 03/07/2024 13:33:12 03/07/20 24 03/07/2024 COMPR EHENS YISSEL METAB OLIC PANEL ALT 26 U/L 14-59 normal Not Available Medardo tarango [address] [place], [address] 03/07/2024 13:33:12 03/07/2003/07/2024 IRON iron 44 ug/dL 50-170 low Not Available [address] [place], [address] 03/07/2024 13:29:33 03/07/20 24 03/07/2024 RETIC ULOCY TE reticulocyte 2.5 % 0.5-2. 4 high Not Available [address] [place], [address] 03/07/2024 12:55:05 03/07/2003/07/2024 COMPL ETE BLOOD COUNT NO DIFF WBC 7.82 10_3/ uL 4.4-10 .8 normal Not Available [address] [place], [address] 03/07/2024 12:55:04 03/07/2003/07/2024 COMPL ETE BLOOD COUNT NO DIFF RBC 3.35 10_6/ uL 3.93-5 .22 low Not Available [address] [place], [address] 03/07/2024 12:55:04 03/07/2003/07/2024 COMPL ETE BLOOD COUNT NO DIFF HGB 9.8 g/dL 11.2-1 5.7 low Not Available [address] [place], [address] 03/07/2024 12:55:04 03/07/20 24 03/07/2024 COMPL ETE BLOOD COUNT NO DIFF HCT 30.6 % 36.0-4 6.0 low Not Available [address] [place], [address] 03/07/2024 12:55:04 03/07/2003/07/2024 COMPL ETE BLOOD COUNT NO DIFF MCV 91 fL 80-95 normal Not Available Medardo [address] [place], [address] 03/07/2024 12:55:04 03/07/20 24 03/07/2024 COMPL ETE BLOOD COUNT NO DIFF MCH 29.3 pg 27.0-3 3.0 normal Not Available [address] [place], [address] 03/07/2024 12:55:04 03/07/2003/07/2024 COMPL ETE BLOOD COUNT NO DIFF MCHC 32.0 % 32.0-3 6.0 normal Not Available [address] [place], [address] 03/07/2024 12:55:04 03/07/2003/07/2024 COMPL ETE BLOOD COUNT NO DIFF RDW 13.9 % 11.7-1 4.6 normal Not Available [address] [place], [address] 03/07/2024 12:55:04 03/07/2003/07/2024 COMPL ETE BLOOD COUNT NO DIFF platelet count 122 10_3/ uL 130-40 0 low Not Available [address] [place], [address] 03/07/2024 12:55:04 03/07/2003/07/2024 COMPL ETE BLOOD COUNT NO DIFF MPV 10.1 fL 8.0-11 .0 normal Not Available [address] [place], [address] 03/07/2024 12:55:04 03/07/2003/07/2024 URINA LYSIS color Yellow yellow Not Available Medardo tarango [address] [place], [address] 03/07/2024 12:57:04 03/07/2003/07/2024 URINA LYSIS clarity Clear clear Not Available Medardo tarango [address] [place], [address] 03/07/2024 12:57:04 03/07/2003/07/2024 URINA LYSIS specific gravity 1.020 1.005- 1.025 normal Not Available [address] [place], [address] 03/07/2024 12:57:04 03/07/2003/07/2024 URINA LYSIS pH 8.5 5-8 high Not Available Medardo tarango [address] [place], [address] 03/07/2024 12:57:04 03/07/2003/07/2024 URINA LYSIS leukocyte esterase Negati ve negati ve Not Available [address] [place], [address] 03/07/2024 12:57:04 03/07/2003/07/2024 URINA LYSIS nitrite Negati ve negati ve Not Available [address] [place], [address] 03/07/2024 12:57:04 03/07/2003/07/2024 URINA LYSIS protein Negati ve mg/dL neg-tr angus Not Available [address] [place], [address] 03/07/2024 12:57:04 03/07/2003/07/2024 URINA LYSIS glucose 500 mg/dL negati ve abnormal Not Available [address] [place], [address] 03/07/2024 12:57:04 03/07/2003/07/2024 URINA LYSIS ketones Negati ve mg/dL negati ve Not Available [address] [place], [address] 03/07/2024 12:57:04 03/07/2003/07/2024 URINA LYSIS urobilinogen 1.0 mg/dL up to 0.2 abnormal Not Available [address] [place], [address] 03/07/2024 12:57:04 03/07/2003/07/2024 URINA LYSIS bilirubin Negati ve negati ve Not Available [address] [place] [place], [address] 03/07/2024 12:57:04 03/07/2003/07/2024 URINA LYSIS blood Negati ve negati ve Not Available [address] [place], [address] 03/07/2024 12:57:04 03/08/2003/08/2024 COMPR EHENS YISSEL METAB OLIC PANEL calcium 9.1 mg/dL 8.5-10 .1 normal Not Available [address] [place], [address] 03/08/2024 07:30:37 03/08/20 24 03/08/2024 COMPR EHENS YISSEL METAB OLIC PANEL glucose 176 mg/dL 74-106 high Not Available Medardo tarango [address] [place], [address] 03/08/2024 07:30:37 03/08/20 24 03/08/2024 COMPR EHENS YISSEL METAB OLIC PANEL BUN 13 mg/dL 7-18 normal Not Available Medardo tarango [address] [place], [address] 03/08/2024 07:30:37 03/08/2003/08/2024 COMPR EHENS YISSEL METAB OLIC PANEL creatinine 0.7 mg/dL 0.55-1 .02 normal Not Available [address] [place], [address] 03/08/2024 07:30:37 03/08/20 24 03/08/2024 COMPR EHENS YISSEL METAB OLIC PANEL estimated GFR 97.12 mL/min /1.73M 2 The eGFR is calcu [...] young er-ag ed adult s. Not Available [address] [place], [address] 03/08/2024 07:30:37 03/08/20 24 03/08/2024 COMPR EHENS YISSEL METAB OLIC PANEL total protein 5.4 g/dL 6.4-8. 2 low Not Available [address] [place], [address] 03/08/2024 07:30:37 03/08/20 24 03/08/2024 COMPR EHENS YISSEL METAB OLIC PANEL albumin 1.8 g/dL 3.4-5. 0 low Not Available [address] [place], [address] 03/08/2024 07:30:37 03/08/20 24 03/08/2024 COMPR EHENS YISSEL METAB OLIC PANEL bilirubin, total 0.38 mg/dL 0.2-1. 0 normal Not Available [address] [place], [address] 03/08/2024 07:30:37 03/08/20 24 03/08/2024 COMPR EHENS YISSEL METAB OLIC PANEL alk phos 111 U/L 46-116 normal Not Available [address] [place], [address] 03/08/2024 07:30:37 03/08/20 24 03/08/2024 COMPR EHENS YISSEL METAB OLIC PANEL sodium 141 mmol/ L 136-14 5 normal Not Available [address] [place], [address] 03/08/2024 07:30:37 03/08/20 24 03/08/2024 COMPR EHENS YISSEL METAB OLIC PANEL potassium 4.4 mmol/ L 3.5-5. 1 normal Not Available [address] [place], [address] 03/08/2024 07:30:37 03/08/20 24 03/08/2024 COMPR EHENS YISSEL METAB OLIC PANEL chloride 105 mmol/ L 98-107 normal Not Available [address] [place], [address] 03/08/2024 07:30:37 03/08/20 24 03/08/2024 COMPR EHENS YISSEL METAB OLIC PANEL CO2 30.3 mmol/ L 21.0-3 2.0 normal Not Available [address] [place], [address] 03/08/2024 07:30:37 03/08/20 24 03/08/2024 COMPR EHENS YISSEL METAB OLIC PANEL anion gap 5.7 mmol/ L 3-11 normal Not Available [address] [place], [address] 03/08/2024 07:30:37 03/08/20 24 03/08/2024 COMPR EHENS YISSEL METAB OLIC PANEL AST 18 U/L 15-37 normal Not Available Medardo tarango [address] [place], [address] 03/08/2024 07:30:37 03/08/20 24 03/08/2024 COMPR EHENS YISSEL METAB OLIC PANEL ALT 18 U/L 14-59 normal Not Available Medardo tarango [address] [place], [address] 03/08/2024 07:30:37 03/08/20 24 03/08/2024 COMPL ETE BLOOD COUNT NO DIFF WBC 6.13 10_3/ uL 4.4-10 .8 normal Not Available [address] [place], [address] 03/08/2024 07:14:36 03/08/2003/08/2024 COMPL ETE BLOOD COUNT NO DIFF RBC 3.02 10_6/ uL 3.93-5 .22 low Not Available [address] [place], [address] 03/08/2024 07:14:36 03/08/20 24 03/08/2024 COMPL ETE BLOOD COUNT NO DIFF HGB 8.9 g/dL 11.2-1 5.7 low Not Available [address] [place], [address] 03/08/2024 07:14:36 03/08/2003/08/2024 COMPL ETE BLOOD COUNT NO DIFF HCT 27.2 % 36.0-4 6.0 low Not Available [address] [place], [address] 03/08/2024 07:14:36 03/08/2003/08/2024 COMPL ETE BLOOD COUNT NO DIFF MCV 90 fL 80-95 normal Not Available Medardo tarango [address] [place], [address] 03/08/2024 07:14:36 03/08/20 24 03/08/2024 COMPL ETE BLOOD COUNT NO DIFF MCH 29.5 pg 27.0-3 3.0 normal Not Available [address] [place], [address] 03/08/2024 07:14:36 03/08/20 24 03/08/2024 COMPL ETE BLOOD COUNT NO DIFF MCHC 32.7 % 32.0-3 6.0 normal Not Available [address] [place], [address] 03/08/2024 07:14:36 03/08/2003/08/2024 COMPL ETE BLOOD COUNT NO DIFF RDW 13.9 % 11.7-1 4.6 normal Not Available [address] [place], [address] 03/08/2024 07:14:36 03/08/20 24 03/08/2024 COMPL ETE BLOOD COUNT NO DIFF platelet count 137 10_3/ uL 130-40 0 normal Not Available [address] [place], [address] 03/08/2024 07:14:36 03/08/20 24 03/08/2024 COMPL ETE BLOOD COUNT NO DIFF MPV 9.8 fL 8.0-11 .0 normal Not Available [address] [place], [address] 03/08/2024 07:14:36 03/11/20 24 03/11/2024 BASIC METAB OLIC PANEL calcium 9.0 mg/dL 8.5-10 .1 normal Not Available [address] [place], [address] 03/11/2024 07:31:21 03/11/20 24 03/11/2024 BASIC METAB OLIC PANEL glucose 111 mg/dL 74-106 high Not Available Medardo tarango [address] [place], [address] 03/11/2024 07:31:21 03/11/20 24 03/11/2024 BASIC METAB OLIC PANEL BUN 12 mg/dL 7-18 normal Not Available Medardo tarango [address] [place], [address] 03/11/2024 07:31:21 03/11/20 24 03/11/2024 BASIC METAB OLIC PANEL creatinine 0.6 mg/dL 0.55-1 .02 normal Not Available [address] [place], [address] 03/11/2024 07:31:21 03/11/20 24 03/11/2024 BASIC METAB OLIC PANEL estimated GFR 100.80 mL/min /1.73M 2 The eGFR is calcu [...] young er-ag ed adult s. Not Available [address] [place], [address] 03/11/2024 07:31:21 03/11/20 24 03/11/2024 BASIC METAB OLIC PANEL sodium 144 mmol/ L 136-14 5 normal Not Available [address] [place], [address] 03/11/2024 07:31:21 03/11/20 24 03/11/2024 BASIC METAB OLIC PANEL potassium 4.2 mmol/ L 3.5-5. 1 normal Not Available [address] [place], [address] 03/11/2024 07:31:21 03/11/20 24 03/11/2024 BASIC METAB OLIC PANEL chloride 108 mmol/ L 98-107 high Not Available [address] [place], [address] 03/11/2024 07:31:21 03/11/20 24 03/11/2024 BASIC METAB OLIC PANEL CO2 31.0 mmol/ L 21.0-3 2.0 normal Not Available [address] [place], [address] 03/11/2024 07:31:21 03/11/20 24 03/11/2024 BASIC METAB OLIC PANEL anion gap 5.0 mmol/ L 3-11 normal Not Available [address] [place], [address] 03/11/2024 07:31:21 03/11/20 24 03/11/2024 COMPL ETE BLOOD COUNT W/DIF F WBC 6.86 10_3/ uL 4.4-10 .8 normal Not Available [address] [place], [address] 03/11/2024 07:21:21 03/11/20 24 03/11/2024 COMPL ETE BLOOD COUNT W/DIF F RBC 2.89 10_6/ uL 3.93-5 .22 low Not Available [address] [place], [address] 03/11/2024 07:21:21 03/11/20 24 03/11/2024 COMPL ETE BLOOD COUNT W/DIF F HGB 8.6 g/dL 11.2-1 5.7 low Not Available [address] [place], [address] 03/11/2024 07:21:21 03/11/20 24 03/11/2024 COMPL ETE BLOOD COUNT W/DIF F HCT 26.2 % 36.0-4 6.0 low Not Available [address] [place], [address] 03/11/2024 07:21:21 03/11/20 24 03/11/2024 COMPL ETE BLOOD COUNT W/DIF F MCV 91 fL 80-95 normal Not Available Medardo tarango [address] [place], [address] 03/11/2024 07:21:21 03/11/20 24 03/11/2024 COMPL ETE BLOOD COUNT W/DIF F MCH 29.8 pg 27.0-3 3.0 normal Not Available [address] [place], [address] 03/11/2024 07:21:21 03/11/20 24 03/11/2024 COMPL ETE BLOOD COUNT W/DIF F MCHC 32.8 % 32.0-3 6.0 normal Not Available [address] [place], [address] 03/11/2024 07:21:21 03/11/20 24 03/11/2024 COMPL ETE BLOOD COUNT W/DIF F RDW 14.9 % 11.7-1 4.6 high Not Available [address] [place], [address] 03/11/2024 07:21:21 03/11/20 24 03/11/2024 COMPL ETE BLOOD COUNT W/DIF F platelet count 279 10_3/ uL 130-40 0 Not Available [address] [place], [address] 03/11/2024 07:21:21 03/11/20 24 03/11/2024 COMPL ETE BLOOD COUNT W/DIF F MPV 9.9 fL 8.0-11 .0 normal Not Available [address] [place], [address] 03/11/2024 07:21:21 03/11/20 24 03/11/2024 COMPL ETE BLOOD COUNT W/DIF F neutrophils % 56.4 % Not Available [address] [place], [address] 03/11/2024 07:21:21 03/11/20 24 03/11/2024 COMPL ETE BLOOD COUNT W/DIF F lymphocytes % 23.5 % Not Available [address] [place], [address] 03/11/2024 07:21:21 03/11/20 24 03/11/2024 COMPL ETE BLOOD COUNT W/DIF F monocytes % 15.5 % Not Available [address] [place], [address] 03/11/2024 07:21:21 03/11/20 24 03/11/2024 COMPL ETE BLOOD COUNT W/DIF F eosinophils % 2.0 % Not Available [address] [place], [address] 03/11/2024 07:21:21 03/11/20 24 03/11/2024 COMPL ETE BLOOD COUNT W/DIF F basophils % 0.4 % Not Available [facility] [address] [place], [address] 03/11/2024 07:21:21 03/11/20 24 03/11/2024 COMPL ETE BLOOD COUNT W/DIF F immature grans % 2.2 % Not Available [address] [place], [address] 03/11/2024 07:21:21 03/11/20 24 03/11/2024 COMPL ETE BLOOD COUNT W/DIF F nucleated RBC 0.4 % 0.0-0. 3 high Not Available [address] [place], [address] 03/11/2024 07:21:21 03/11/20 24 03/11/2024 COMPL ETE BLOOD COUNT W/DIF F absolute neutrophil count 3.87 10_3/ uL 1.2-6. 7 normal Not Available [address] [place], [address] 03/11/2024 07:21:21 03/11/20 24 03/11/2024 COMPL ETE BLOOD COUNT W/DIF F absolute lymphocyte count 1.61 10_3/ uL 1.2-3. 4 normal Not Available [address] [place], [address] 03/11/2024 07:21:21 03/11/20 24 03/11/2024 COMPL ETE BLOOD COUNT W/DIF F absolute monocyte count 1.06 10_3/ uL 0.1-0. 8 high Not Available [address] [place], [address] 03/11/2024 07:21:21 03/11/20 24 03/11/2024 COMPL ETE BLOOD COUNT W/DIF F absolute eosinophil count 0.14 10_3/ uL 0.0-0. 7 normal Not Available [address] [place], [address] 03/11/2024 07:21:21 03/11/20 24 03/11/2024 COMPL ETE BLOOD COUNT W/DIF F absolute basophil count 0.03 10_3/ uL 0.0-0. 2 normal Not Available [address] [place], [address] 03/11/2024 07:21:21 03/29/20 24 03/29/2024 hemog lobarlene A1C, jerrica caba hemoglobin A1C 5.1 % <5.7 Not Available [address], [address], 03/29/2024 10:30:50 07/02/19 24 07/02/2023 elect agnes jones am EKG NONI Rodríguez NAME: Arley Norman UNIT #: [id number] ORDERI NG PROVID ER: Moustapha Baker M.D. ACCOUN T #: [id number] [facility] Y [facility] ER: SHE STANLEY NP Y DATE/T JULI OF SERVIC E: 1127 : 1960 PERFOR HERBERT LOCATI ON: ER ------ ------ --- APPROV ED REPORT ------ ------ -- Exam: Restin g ECG Reason for Exam: sob Patiela rodríguez Locati on: E HR:113 bpm ECG Measur ements Heart Rate 113 AXIS ID 143 P 64 QRSd 89 QRS 84 [...] ------ - E-Sign Date: E-Sign Time: 113 [email or web address] [facility] [address], [place], [address] 07/02/2023 12:23:00 07/02/19 24 07/02/2023 elect agnes jones am EKG ERICAELA Anne NAME: Arley Norman UNIT #: [id number] ORDERI NG PROVID ER: Moustapha Baker M.D. ACCOUN T #: [id number] [facility] Y [facility] ER: SHE STANLEY NP Y DATE/T JULI OF SERVIC E: 1127 : 1960 PERFOR HERBERT LOCATI ON: ER ------ ------ --- APPROV ED REPORT ------ ------ -- Exam: Restin g ECG Reason for Exam: sob Noni rodríguez Locati on: E HR:113 bpm ECG Measur ements Heart Rate 113 AXIS ID 143 P 64 QRSd 89 QRS 84 [...] ECG Measur ements Heart Rate 113 AXIS ID 143 P 64 QRSd 89 QRS 84 [...] interp reted ECG and agree with kristine clarkp retati on. Electr onical ly signed by: [id number] Cosign ed by: [email or web address] [facility] [address], [place], [address] 07/02/2023 12:23:00 07/02/19 24 07/02/2023 x-ray imagi ng jose cruz rodríguez Name: Arley Norman Unit #: [id number] Loc: ER Ordervianey Fox er: Moustapha Baker M.D. Accoun t #: [id number] Status : REG ER Primar [...] at the addres s above. Thank- you. [email or web address] [facility] [address], [place], [address] 07/02/2023 13:39:28 07/02/19 24 07/02/2023 elect agnes jones am EKG PATIELA T NAME: Arley Norman Johanny UNIT #: [id number] ORDERI NG PROVID ER: Moustapha Baker M.D. ACCOUN T #: [id number] [facility] PROVID ER: JADEN STILL,ABB Y DATE/T JULI OF SERVIC E: 1609 : 1960 PERFOR HERBERT LOCATI ON: ER ------ ------ --- APPROV ED REPORT ------ ------ -- Exam: Restin g ECG Reason for Exam: trop + Noni rodríguez Locati on: E HR:109 bpm ECG Measur ements Heart Rate 109 AXIS ID 159 P 69 QRSd 76 QRS 84 [...] in aVL. Compar ed to prior dated cristopher r today no acute change s. T wave flatte oly in aVL is persis tent. Low voltag e is also persis tent. ------ ------ ------ ------ ------ ------ ------ ------ ------ ------ ------ ------ ------ ------ ------ ------ ---- ------ - E-Sign Date: E-Sign Time: 1655 [email or web address] [facility] [address] , [place], [address] 07/03/2023 06:42:41 07/02/19 24 07/02/2023 histo ry physi tonya exami natio n HISTOR Y PHYSIC AL EXAMIN ATION PATIEN T NAME: Brennen naderArley dubose UNIT #: [id number] ADMITT ING PROVID ER: Erin Ward M.D. ACCOUN T #: [id number] PRIMAR Y CARE PROVID ER: JADEN [...] a cardia c cathet erizat ion at [facility] when she first presen gabbie with the [...] pneumo manisha, IDDM2, who presen gabbie to [facility] ED today c/o SOB and [...] RA and requir ed 1L of O2. Eliseo r, VBG showed pH of 7.27 with [...] 203. On repeat , it was 434. [facility] cardio logy was consul gabbie and felt that this is likely demand ischem ia and did not recomm end hepari nizati on or plavix . The patien t did get aspiri n in the ED. Hospit alist admiss ion to the ICU was requallison cartwright; eliseo merritt, upon arriva l to the ICU, the patien t is off of BiPAP and is doing better . [facility]. 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 Use Status : Never Smokin g risk [...] O2, coughi ng incess antly, A Ox3, MARSHALL Neurol ogical : A Ox3, tremul ous, MARSHALL, no focal defici ts Psychi atric: Approp [...] 203 H* 434 H* COVID- 19 Source Nasoph arynx SARS-C oV-2 (PCR) Negati ve Influe nza [...] tests, proced ures, referr ing, commun aline sandoval with other health care profes sional s, indepe ntentl y interp reting result s, counse ling the patien t and care [facility] cc: JADEN STILL,ABB Y ------ ------ ------ [...] error, please notify us immedi ately at [phone] and return the origin al report to us at the addres s above. Thank you. [email or web address] [place] [id number], [place], [address] 07/03/2023 06:43:46 07/02/19 24 07/02/2023 ED visit note ED Visit Note NONI Rodríguez NAME: Arley Norman UNIT #: [id number] ADMITT ING PROVID ER: Moustapha Baker M.D. ACCOUN T #: [id number] PRIM[facility] CARE PROVID ER: SHE STANLEY NP DATE OF ADMIT: 0 4 : 1960 Discha rge Plan Dispos ition Patien t Dispos ition: Admit to [facility] Discha rge Detail s Clinic al Impres clotidle: Acute respir atory failur e with hypoxi [...] l Date/T juli Provid er Initia gabbie Docume ntatio n: 11:28 . HPI Narrat yissel: [...] Not hypote nsive nor a dialys is patien t to sugges t tampon alvin. No histor y of emesis to sugges t esopha geal ruptur e. No tearin g qualit y to sugges t aortic dissec tion. Given increa sed oxygen use antici fofana patiela rodríguez will requir e hospit alizat ion. No signif icant lower extrem ity edema to sugges t acute heart failur e. Simila rly patiela t does not appear volume overlo aded. 12:30 [...] Dr. Ward who reques gabbie cards consul [facility]. 4pm I spoke to Dr. Aiden watkins from cards at [facility]. He was not concer david for ACS and felt that patien t's presen tation was more consis tent w/smiley nd. He advise d trendi ng trops serial ECGs. He advise d agains t tonja loganzati on and clopid ogrel. 4:55 PM Repeat [...] ions affect ing the care of the patien t: Reacti ve airway diseas e Histor y obtain ed from an outsid e histor laureen: N/A Quantitative Developer al record review : N/A [Diagn ostic [...] Manage ment discus sed with: Cardio logy [facility] and Dr. 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 Thank you. [email or web address] [facility] [address], [place], [address] 07/03/2023 06:43:47 07/03/19 24 07/03/2023 progr ess note PROGRE SS NOTE PATIEN T NAME: Arley Norman UNIT #: [id number] ADMITT ING PROVID ER: Erin Ward M.D. ACCOUN T #: [id number] PRIMAR Y CARE PROVID ER: JADEN STILL,SHE Y DATE OF ADMIT: 0 4 : [...] a cardia c cathet erizat ion at [facility] when she first presen gabbie with the [...] histor y since last seen: Ms Hutton dson is satura ting 92% on RA. She [...] coughi ng is better , A Ox3, MARSHALL HEENT: EOMI, MMM Cardio vascul ar: RRR, [...] obtain ing and/or review ing separa tely otaine d hiisto ry, orderi ng medica tions, tests, proced ures, referr ing, commun icatin g with other health care profes sional s, indepe ntentl y interp reting result s, counse ling the patien t and care [facility] cc: ------ ------ ------ ------ ------ ------ [...] at the addres s above. Thank you. [email or web address] [facility] [address], [place], [address] 07/06/2023 06:41:39 07/04/19 24 07/04/2023 progr ess note PROGRE SS NOTE PATIELA T NAME: Arley Norman UNIT #: [id number] ADMITT ING PROVID ER: Erin Ward M.D. ACCOUN T #: [id number] PRIMAR Y CARE PROVID ER: YOUNG MANAGER CREATIVE SERVICES,ABB Y DATE OF ADMIT: 0 4 : [...] . Discus sed with cardio logy at [facility]. When the patien t was origin ally [...] O2 at night - discus sed with tiff hawkins (3) Bronch ioliti s: Status : Acute [...] a calciu m score of 0 at [facility]. The EF did improv e on the [...] al histor y since last seen: Alan marcht, loyda ped flipp ed T-wave s on the [...] downtr end. Case was discus sed with [facility] cardio logy, who recomm ended keepin g [...] tests) , obtain ing and/or review ing victorinoa leeann foote ry, orderi ng medica tions, tests, proced ures, referr ing, commun icatin g with other health care profes sional s, indepe ntentl y interp reting result s, counse ling the patien t and care [facility] cc: ------ ------ ------ ------ ------ ------ ------ ------ ------ ------ ------ --- Dictat ed by: FAUSTO WARD MD Dictat ed: Time: 142 8 Date: 1552 Date: Date: Transc ribed Date: Transc ribed Time: 1427 By: SYED This is privil eged, confid [...] at the addres s above. Thank you. [email or web address] [address] [place], [address] 07/06/2023 06:41:39 07/04/19 24 07/03/2023 initi al care manag ement asses s Initia l Care Manage ment Assess NONI Rodríguez NAME: Arley Norman UNIT #: [id number] ADMITT ING PROVID ER: Ahmet Hensley T #: [id number] PRIMAR Y CARE PROVID ER: JADEN MANAGER CREATIVE SERVICES,ABB Y DATE OF ADMIT: 0 4 : 1960 Date of servic e: Time of Servic e: 09:49 Care Manage ment Initia l Assmt Initia l Assess ment REASON FOR HOSPIT ALIZAT ION:: Bronci olitis , Acute Hypoxi c Hyperc apnic Respir atory Failur e PREVIO US FUNCTI ONAL STATUS /SOCIA L/FAMI LY SUPPOR TS:: Binta rodríguez reside s in [facility] with her jojo Gasca . 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 She and her jojo smith have two adult sons, Richard and Carlton, one of whom lives [facility] and is suppor tive of the couple . Binta rodríguez is indepe ndent with her [facility]L[place] at [facility] [place]. CHUY Rodríguez FUNCTI ONAL STATUS :: Binta rodríguez was lying in bed, jojo smith at bedsde e. Jojo smith, Campos strugg ling to regula te emotio ns, weepin g and concer david, antici fofana Binta rodríguez will return home after ECHO comple [...] needs includ ing ask me three . DAMIEN IVY RS TO DISCHA RGE:: None. TRANSP ORTATI ON:: Via privat e vehicl e by her jojo smith. PLAN:: Damien Judd t will return home once medica [...] strict ure Chroni c systol ic (telma stive) heart failur e Aspira tion pneumo manisha Stress -induc ed cardio myopat hy acute onset manage d at [facility] 08/30 presso rs, EF 25%, has since [...] (Revie wed @ 05:25 by Richard Cadena ois) Father Hypert ension Diabet es Heart diseas e Social Histor y (Revie wed @ 05:25 by Richard suggs) Smokin g/Toba outside sales account manager Use Status : Never Smokin g risk [...] ------ --- Dictat ed by: Ahmet Hensley Dictat ed: Time: 948 Date: 1555 Date: [...] at the addres s above. Thank you. [email or web address] [facility] [address] [place], [address] 07/06/2023 06:41:40 07/05/1907/05/2023 elect agnes jones am EKG PATIEN T NAME: Arley Norman UNIT #: [id number] ORDERI NG PROVID ER: Vernon Dick marianelad ACCOUN T #: [id number] PRIMAR Y CARE PROVID ER: YOUNG MANAGER [employer],ABB Y DATE/T JULI OF SERV E: 722 : 1960 RADHA GODINEZ LOCATI ON: MS ------ ------ --- APPROV ED REPORT ------ ------ -- Exam: Restin g ECG Reason for Exam: previo us EKG was done withou t V2 Patien t Locati on: I HR:72 bpm ECG Measur ements Heart Rate 72 AXIS ID 150 P 48 QRSd 80 QRS 88 [...] ------ - E-Sign Date: E-Sign Time: [id number] [place], [address] 07/06/2023 06:41:38 07/05/1907/05/2023 elect agnes jones am EKG PATI T NAME: Arley Norman UNIT #: [id number] ORDERI NG [facility] ER: Gregorykarla charlenevirgenDa marianelad ACCOUN T #: [id number] PRIMAR Y CARE PROVID ER: JADEN STILL,SHE Y DATE/T JULI OF SERVIC E: 0551 : 1960 RADHA MAYORGA ON: MS ------ ------ --- APPROV ED REPORT ------ ------ -- Exam: Restin g ECG Reason for Exam: Latera l ischem ia with hypoxe contreras Noni rodríguez Locati on: I HR:69 bpm ECG Measur ements Heart Rate 69 AXIS ID 156 P 60 QRSd 73 QRS 85 [...] ged QT interv al...Q Tc >500mS Leslye sandoval lead(s ): V2 ------ ------ ------ ------ ------ ------ ------ ------ ------ ------ ------ ------ ------ ------ ------ ------ ---- ------ - E-Sign Date: E-Sign Time: 820 [facility] [address] [place], [address] 07/06/2023 06:41:37 07/05/19 24 07/05/2023 elect agnes jones am EKG NONI Rodríguez NAME: Arley Norman UNIT #: [id number] ORDERI NG PROVID ER: Vernon Dick ACCOUN T #: [id number] PRIMAR Y CARE PROVID ER: SHE STANLEY NP DATE/T JULI OF [employer] E: 233 : 1960 RADHA GODINEZ LOCATI ON: MS ------ ------ --- APPROV ED REPORT ------ ------ -- Exam: Restin g ECG Reason for Exam: t wave change s Noni rodríguez Locati on: I HR:81 bpm ECG Measur ements Heart Rate 81 AXIS ID 143 P 56 QRSd 87 QRS 92 [...] ---- ------ - E-Sign Date: E-Sign Time: [id number] [facility] [address] [place] [address] [place], [address] 07/06/2023 06:41:36 07/05/19 24 07/02/2023 caterina jones am EKG NONI Rodríguez NAME: Arley Norman UNIT #: [id number] ORDERI NG PROVID ER: Moustapha Baker M.D. ACCNEIL T #: [id number] PRIMAR Y [facility] ER: SHE STANLEY NP DATE/T JULI OF SISI E: 1609 : 1960 [facility] LOCATI ON: MS ------ ------ --- APPROV ED REPORT ------ ------ -- Exam: Restin g ECG Reason for Exam: trop + Patien t Locati on: E HR:109 bpm ECG Measur ements Heart Rate 109 AXIS ID 159 P 69 QRSd 76 QRS 84 [...] in aVL. Compar ed to prior dated cristopher fraire no acute change s. T wave flatte oly in aVL is persis tent. Low voltag e is also persis tent. ------ ------ ------ ------ ------ ------ ------ ------ ------ ------ ------ ------ ------ ------ ------ ------ ---- ------ - E-Sign Date: E-Sign Time: 1656 ------ ------ --- ADDEND [facility] ED REPORT ------ ------ -- Exam: Restin g ECG Reason for Exam: trop + Patien t Locati on: E HR:109 bpm ECG Measur ements Heart Rate 109 AXIS ID 159 P 69 QRSd 76 QRS 84 [...] ly signed by: [id number] Cosign ed by: [facility] [address], [place], [address] 07/06/2023 06:41:41 07/05/1907/05/2023 ultra sound imagi ng repor t Noni t Name: Brennen paintingArley anitra [place] Unit #: [id number] Loc: MS Jerman contreras Provid er: Erin Ward M.D. t #: [id number] Status : ADM IN Primut y [facility] er: Chris Stanley Date of Exam: Sex: F Admiss ion Date: : 1960 Age: 63 ------ ------ --- APPROV ED REPORT ------ ------ -- EXAM: Compre hensiv e 2D, Dopple r, and color- flow Echoca rdiogr am Noni rodríguze Locati on: In-Pat ient Room/B ed: 226 [...] at the addres s above. Thank- you. [email or web address] [facility] [address] [place], [address] 07/06/2023 06:41:35 07/05/1907/05/2023 cardi ology consu ltati on CARDIO LOGY CONSUL DEVIKA Rodríguez NAME: Arley Norman UNIT #: [id number] ORDERI NG PROVID ER: ACCOUN T #: [id number] PRIMAR Y CARE PROVID ER: JADEN MANAGER [employer],ABB Y DATE/T JULI OF SERVIC E: : 1960 Date of servic e: Time of Servic e: 12:29 Assess ment and Plan Assess ment and plan (1) Acute on chroni c respir atory failur e with hypoxi a and hyperc apnia: Status : Acute Assess ment and plan: Patiela cartwright with an acute illnes s which [...] Review of System s Narrat yissel: Patien anne was not interv iewed or examin ed [...] myopat hy acute onset manage d at [facility] 08/30 presso rs, EF 25%, has since [...] 12:35 by Chiquis Leblanc MD) Smokin g/Toba outside sales account manager Use Status : Never Smokin g risk assess ment perfor med?: Yes Alcoho l Intake : never Drug use: Never Substa nce use type: does not use Househ old member s: spouse Housin g: apartm ent Number of Childr en: 2 curren t occupa tion: Caregi elvie What is your relati onship status ?: marrie d Panel score (0-1 are the most social ly isolat ed patien ts): 1 Do you feel safe at home: Yes Do you feel safe in your relati onship ?: Yes Exam Narrat yissel Exam Narrat yissel: Noni rodríguez was not examin ed Result s Last [...] ---- -- Dictat ed by: JANIS MARTE,RUKHSANA Beebe LINDSEYHER COLMENARES Dictat ed:: 4 [id number] 1237 Transc [...] at the addres s above. Thank you. [address], [place], [address] 07/06/2023 06:41:34 07/05/19 24 07/05/2023 care manag ement disch arge Care Manage ment Discha rge NONI Rodríguez NAME: Arley Norman UNIT #: [id number] ADMITT ING PROVID ER: Ricki Hooper DUTCH T #: [id number] PRIMAR Y CARE PROVID ER: JADEN MANAGER [employer]IVE SERVICES,ABB Y DATE OF ADMIT: 0 4 : 1960 Date of servic e: Time of Servic e: 18:10 LACE Index Scorin g Zack Cummings ons: Length of Stay (in days): [...] at the addres s above. Thank you. [email or web address] [facility] [address], [place], [address] 07/06/2023 06:41:33 07/06/19 24 07/05/2023 disch arge summa ry DISCHA RGE SUMMAR Y PATIEN T NAME: Arley Norman UNIT #: [id number] ADMITT ING PROVID ER: CHIP MARTINEZ MD, ALEXI CLAIRE ACCOUN T #: [id number] PRIMAR Y CARE PROVID ER: YOUNG MANAGER [employer]ATIVE SERVICES,ABB Y DATE OF ADMIT: 0 4 : [...] per echo 3 who prsent ed to [facility] on 3 w/ one week of [...] ting Takots ubo cardio myopat hy. Eliseo merritt, noni rodríguez should have a follow up stress MPI study. The patien t's jojo cartwright that he will call the patien t's cardio logist , Dr. Hernandez at [facility] and get her an expedi gabbie outpat [...] tablet 1 tab feedin g tube BID Pati t Commen ts: via g-tube Jardia nce [...] susp in packet 40 mg G-tube DAILY Pati t Commen ts: Take 1 packet via [...] VIA G-TUBE EVERY NIGHT DIRECT ED insuli lopez glarsonido ne [Lantu s Solost ar U-100 Insuli [...] . You should follow up w/ your [facility] cardio logist and discus s having a [...] Exam Narrat yissel: Middle -aged white female sitjames sandoval up in her chair talkin g with [...] 85 18:35 Blood Pressu re Positi on Kaela sandoval 18:35 Pulse Oximet ry 93 11:21 Oxygen [...] geal strict ure Chroni c systol ic (confrancisco j stive) heart failur e Aspira tion pneumo manisha Stress -induc ed cardio myopat hy acute onset manage d at [facility] 08/30 presso rs, EF 25%, has since [...] sectio n Family Histor y (Revie wed 24 @ 15:32 by Rory martinez MD) Father Hypert ension Diabet es Heart diseas e Social Histor y (Wed @ 15:32 by Rory martinez MD) 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 g/Toba outside sales account 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 Use Status : Never Smokin g risk assess ment perfor med?: Yes Alcoho l Intake : never Drug use: Never Substa nce use type: does not use Househ old member s: spouse Housin g: apartm ent Number of Childr en: 2 curren t occupa tion: Caregi elvie What is your relati onship status ?: marrirowan smith Panel score (0-1 are the most [...] patien t (And patien t's son and husakbar d) and care [facility] CC: ------ ------ ------ ------ ------ ------ ------ ------ ------ ------ ------ --- Dictat ed by: CHIP MARTINEZ MD, ALEXI CLAIRE Dictat ed: Time: 153 Date: 07/06 Time: 1805 Transc ribed Date: Transc ribed Time: 1531 By: PABLO This is privil eged, confid ential inform ation, intend ed only for the provid er named. Any use or distri bution by any person other than this provid er is strict ly prohib ited. If you receiv e this report in error, please notify us arik vicente at and return the origin al report to us at the addres s above. Thank you. [email or web address] [facility] [address], [place], [address] 07/07/2023 10:42:01 01/24/20 24 01/24/2024 x-ray imagi ng repor t Noni t Name: Arley Norman Unit #: [id number] Loc: DIORS Orderi ng Provid er: Bhargav Syed M.D. Accoun t #: [id number] Status : PRE CLI Primar y [...] the addres s above. Thank- you. INTERFACE [facility] [address] [place], [address] 01/24/2024 11:53:52 01/24/2004/22/2021 imagi ng/di agnos tic resul t No [...] Not Available 01/23 17:45:29 01/24/20 24 07/27/2019 marla DUMONT No observ ation record ed. Not Available 01/23 17:45:33 01/24/20 24 12/08/2021 marla DUMONT No observ ation record ed. Not Available 01/23 17:45:37 01/24/20 24 03/04/2021 US, abdom en No observ ation record ed. Not Available 01/23 17:45:38 01/24/20 24 01/07/2023 US, kerrile x, milviaou s, extre mity No observ ation record [...] imagi ng repor t Patien t Name: Brennen Arley painting Johanny Unit #: [id number] Loc: ER Orderi ng Provid er: Mohit Wasserman i, M.D. Accoun t #: [id number] Status : PRE ER Primar y [...] facili ty are submit gabbie to the [facility] al Radiol ogy Data Regist [...] the addres s above. Thank- you. INTERFACE [facility] [address] [place], [address] 02/29/2024 17:26:33 02/29/2002/29/2024 x-ray imagi ng repor t Patien t Name: Arley Norman Unit #: [id number] Loc: ER Orderi ng Provid er: Mohit Wasserman i, M.D. Accoun t #: [id number] Status : PRE ER Primar y [...] error, please notify us immedi ately at [phone] and return the origin al report to us at the addres s above. Thank- you. INTERFACE [facility] [address] [place], [address] 02/29/2024 17:29:34 03/01/20 24 03/01/2024 x-ray imagi ng repor t Noni t Name: Arley Norman Unit #: [id number] Loc: Orderi ng Provid er: Bhargav Syed M.D. 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 CONTRA ST MATERI AL: Refer to proced ure report . COMPAR ASHLEY: CR XR HIP RT COMPLE TE AP PELVIS from 2023 FINDIN GS: Fluoro scopy was provid ed for Dr. Luana mullins during the perfor cesar of a right total hip arthro plasty . Please refer to the proced ure report for comple te detail makayla Mullinsr=5 .92 mGy IMPRES CLOTILDE: RADIAT ION DOSE DELIVE RED: 0.0 0.0 0 Ordere d By: Bhargav Syed M.D. CC: ------ ------ ------ ------ ------ ------ ------ ------ ------ ------ ------ ------ - Dictat ed By: Aiden Bergeron M.D. 1650 Transc ribed By: Aiden Bergeron 1650 This is privil eged, confid ential inform [...] the addres s above. Thank- you. INTERFACE [address], [place], [address] 03/01/2024 17:03:53 03/01/20 24 03/01/2024 x-ray imagi ng repor t Noni t Name: Arley Norman Unit #: [id number] Loc: Ordervianey ng Provid er: Bhargav Syed M.D. Accoun t #: [id number] Status : ADM IN Primar y Care Provid er: Chris Stanley Date of Exam: Sex: F Admiss ion Date: : 1960 Age: 63 Exam(s ) XR PELVIS AP EXAM: XR PELVIS AP CLINIC AL HISTOR Y: In PACU s/p R KYUNG. TECHNI QUE: 2D digita l imagin g was perfor med. COMPAR ASHLEY: CR XR HIP RT COMPLE TE AP PELVIS from 2023 XA XR HIP RT IN OR from 2023 FINDIN GS: The patien t is now status post right total hip replac ement. The orthop edic hardwa re appear s in good positi on. Postsu rgical change s are seen in the soft tissue s. Vascul ar calcif icatio ns are presen t. The patien t had a prior left total hip replac ement. IMPRES CLOTILDE: Status post right total hip replac ement. DATA REPOSI TORY: RADIAT ION DOSE DELIVE RED: Ordere d By: Bhargav Syed M.D. CC: ------ ------ ------ ------ ------ ------ ------ ------ ------ ------ ------ ------ - Dictat ed By: Aiden Bergeron M.D. 1732 Transc ribed By: Aiden Bergeron 1732 This is privil eged, confid ential inform [...] the addres s above. Thank- you. INTERFACE [facility] [address], [place], [address] 03/01/2024 17:38:58 03/02/20 24 03/02/2024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 03/19/2023 06:16:20 COVID-19, mRNA, LNP-S, PF, 100 mcg/0.5mL dose or 50 mcg/0.25mL dose 1 completed Not Available [facility] 03/19/2023 06:16:21 COVID-19, mRNA, LNP-S, PF, 100 mcg/0.5mL dose or 50 mcg/0.25mL dose 1 completed Not Available [facility] 03/19/2023 06:16:21 COVID-19, mRNA, LNP-S, PF, 100 mcg/0.5mL dose or 50 mcg/0.25mL dose 2 completed Not Available [facility] 03/19/2023 06:16:21 COVID-19, mRNA, LNP-S, PF, 100 mcg/0.5mL dose or 50 mcg/0.25mL dose 1 completed Not Available [facility] 03/19/2023 06:16:21 Pneumococcal conjugate PCV20, polysaccharide [id number] conjugate, adjuvant, PF 2 completed Not Available [facility] 03/19/2023 06:16:21 COVID-19, mRNA, LNP-S, bivalent, PF, 30 mcg/0.3 mL dose 2 completed Not Available [facility] 03/19/2023 06:16:21 pneumococcal polysaccharide PPV23 9 completed Not Available [facility] 03/19/2023 06:16:21 Influenza, split virus, quadrivalent, PF 3 completed Not Available [facility] 05/21/2023 05:31:34 COVID-19, mRNA, LNP-S, PF, daniela-sucrose, 30 mcg/0.3 mL 3 completed Not Available [facility] 05/21/2023 05:31:35 Past Encounters Encounter ID Performer Location Encounter Start Date Encounter Closed Date Diagnosis/Indication Diagnosis SNOMED-CT Code Diagnosis ICD10 Code [id number] CHRIS STANLEY [address] [address] 03/31/2023 13:52:55 03/31/2023 14:48:07 Hyperglycemia due to type 2 diabetes mellitus 5114508620 02216 E11.65 Senile osteoporosis 1804 0001 M81.0 History of heart failure 282726669 Z86.79 History of hematuria 161 816698 Z87.448 Hearing loss 05720975 H9 1.91 Cough 17228631 R05.9 [id number] CHRIS STANLEY [address] [address] 05/13/2023 11:24:56 05/13/2023 12:21:08 Bipolar disorder 57410350 F31.9 Stricture of esophagus 05319596 K22.2 [id number] CHRIS STANLEY [address] [address] 05/21/2023 11:10:39 05/21/2023 14:11:27 Skin lesion 38026662 L98.9 Candidiasis of skin 4988 3006 B37.2 Hypoxia 636940328 R09.02 Muscle weakness 91613511 M62.81 History of cardiomyopathy 8096988471 08400 Z86.79 Stricture of esophagus 49332854 K22.2 [id number] CHRIS STANLEY [address] [address] 05/25/2023 09:23:39 05/25/2023 10:42:06 Candidiasis of skin 80465139 B37.2 Farrell's esophagus 3029 36739 K22.70 [id number] Prachi Blancas RN [address] [address] 06/25/2023 09:34:23 06/25/2023 10:46:13 Aspiration pneumonia 424409925 J69.0 Upper resp iratory infection 47470981 J06.9 [id number] CHRIS STANLEY [address] [address] 06/30/2023 09:21:07 06/30/2023 10:45:05 Hip pain 99649618 M25.559 Aspiration pneumonia 422 757935 J69.0 Candidiasis of skin 4988 3006 B37.2 [id number] CHRIS STANLEY [address] [address] 07/16/2023 08:26:14 07/16/2023 10:18:19 Pressure injury of buttock 436464422 L89.309 Candidiasis of vagina 72 367436 B37.31 [id number] CHRIS STANLEY [address] [address] 07/30/2023 10:18:16 07/30/2023 11:16:51 Polyneuropathy 46182858 G62.9 Hyperglyce contreras due to type 2 diabetes mellitus 6296363435 18849 E11.65 [id number] CHRIS STANLEY [address] [address] 09/01/2023 10:33:38 09/01/2023 11:21:31 Stricture of esophagus 20929117 K22.2 History of cardiomyopathy 6436443024 28680 Z86.79 Polyneuropathy 42344139 G62.9 [id number] CHRIS STANLEY [address] [address] 12/03/2023 10:35:02 12/03/2023 11:43:48 Hyperglycemia due to type 2 diabetes mellitus 2949452124 07122 E11.65 Pruritus of vagina 25816 003 L29.3 Polyneuropathy 21377053 G62.9 [id number] CHRIS STANLEY [address] [address] 03/29/2024 10:08:07 03/29/2024 11:00:38 Hip pain 82869690 M25.559 Hyperglyce contreras due to type 2 diabetes mellitus 1257960794 39564 E11.65 Active or passive immunization 664015696 Z23 Senile osteoporosis 1804 0001 M81.0 Goals Section Goal Description Status Start Date [...] Member ID Camargo Member ID Guarantor Name 07/16/2023 1 [facility] (MEDICAID) Jennifer Irving [id number] Jennifer Irving 07/30/2023 1 [facility] (MEDICAID) Jennifer Irving [id number] Jennifer Irving 09/01/2023 1 [facility] (MEDICAID) Jennifer Irving [id number] Jennifer Irving 12/03/2023 1 [facility] (MEDICAID) Jennifer Irving [id number] Jennifer Irving 03/29/2024 1 [facility] (MEDICAID) Jennifer Irving [id number] Jennifer Irving Notes Date Note Type Note Provider Name and Address Organization Details Recorded Time 07/16/2023 text/html Recently hospitalized with pneumonia. She has no respiratory concerns today. She is most concerned with vaginal itching. She denies dysuria or vaginal discharge. She believes she has a yeast infection. She is also concerned that she has skin breakdown that occured while in the hospital on her buttocks. [address], [place], [address], [facility]. 07/16/2023 15:31:21 07/30/2023 text/html Patient would li ke to discuss transitioning off of gabapentin and onto Cymbalta. She finds gabapentin to be minimally effective for lower extremity neuropathy and finds it to be sedating. She is hoping that the Cymbalta would help with neuropathy and also help with her mood. [address], [place], [address], [facility] 07/30/2023 12:20:23 09/01/2023 text/html Has stopped the gabapentin. Has been taking [...] has been significantly beneficial to quality of life.She is scheduled tomorrow for endoscopy for stricture of esophagus. [address], [place], [address], [facility]. 09/01/2023 11:42:46 12/03/2023 text/html Jennifer is here today with her . They [...] walker or cane (for the past month). MAIDA TOSCANO [address], [place], [address], [facility]. 12/04/2023 09:49:38 03/29/2024 text/html Jennifer recounts recent fall at home, which resulted in a traumatic experience. She remembers falling and knocking over a heater, but the details are vague due to the trauma. Her son, Shiva, found her on the kitchen floor, unable to get up and in significant pain, suspecting a broken right hip. Jennifer was taken to the hospital, where it was confirmed that she had indeed broken her right hip. She is here today for hospital FU after surgical repair. Jennifer reports that she has been improving daily in her mobility. Initially, she required a walker to move around, but over the past few days, she has progressed to walking independently without assistance. She expresses confidence in her ability to walk and has been practicing walking on different surfaces, such as grass. [address], [place], [address], [facility], [facility]. 03/31/2024 10:23:32 OBGyn Episode No OBEpisode recorded.
--- OUTSIDE RECORDS SUMMARY | 2024-04-19 22:52 | XMS_ITS | Encounter Summary ---
Author Organization Formerly [facility] [place] [address] Care Team Providers Care Sewing Machine Adjuster Name Role Phone Ana Gillespie APRN Primary Care Provider [phone] Encounter Details Date Type Department Care Team (Late st Contact Info) Description 03/08/2024 Telephone Cardiology at [address] [phone] Nicole Guillory RN Social History Tobacco Use Types Packs/Day [...] Telephone Encounter - Nicole Guillory RN - 03/08/2024 4:38 PM EDT I made a return call to Dr. Mcadams- told him Dr. Hernandez asked that his inquiry go to the [facility]. I did call patient back to let him know I called them and he said he could wait until he speaks with Dr. David robert. He said it is not an Urgent request. Advised that I will ask Dr Hernandez to contact him at some time tomorrow. Phone number in my earlier message. Nicole Guillory RN, BSN Ambulatory Cardiology Department Covering Cardiology Blue team * Telephone Encounter - Nicole Guillory RN - 03/08/2024 4:06 PM EDT Return call to patient provider - Dr. Denney. He is asking for a call back from Dr. Hernandez at thefollowing number - Cell phone Wondering if the patient needs to be on metoprolol and Entresto- he is concerned that her Systolic HR is 110/90/ he did not have the diastolic numbers available. Advised provider that I would ask Dr. Hernandez to contact him today. Verbalized his understanding and willl wait for the call- Nicole Guillory RN, BSN Ambulatory Cardiology Department Covering Cardiology Blue team documented in this encounter Plan of Treatment Upcoming Encounters Date Type Department Care Team (Late st Contact Info) Description 04/26/2024 8:30 AM EST [place] [phone] Gavin Carrillo MD [facility] [place] [address] 06/05/2024 1:20 PM EST Office Visit Cardiology at [address] [phone] Milagros Hernandez MD [facility] [place] [address] Scheduled Procedures Name Priority Associated Diagnoses Date/Ti me EGD, UPPER GI ENDOSCOPY (WRV U 2.09) Peptic stricture of esophagus documented as of this encounter Visit Diagnoses Not on filedocumented in this encounter Care Teams Sewing Machine Adjuster Relationship Specialty Start Date End Date Ana Gillespie APRN [address] [place] [address] PCP - General Family Medicine 02/03/19 documented as of this encounter
--- OUTSIDE RECORDS SUMMARY | 2024-04-19 22:52 | XMS_ITS | Encounter Summary ---
[place] [address] Care Team Providers Care Stone Rubber Name Role Phone Ana Gillespie VAUGHN Primary Care Provider [phone] Reason for Referral * Diagnostic Test (Routine) - Authorized Specialty Diagnoses / Procedures Referred By Esperanza rodríguez Referred To Contact Radiology Diagnoses Problem with gastrostomy tube Procedures IR G-Tube Check/Change Leon Morales [facility] [place] [address] [place] [address] Referral ID Status Reason Start Date Expiration Date Visits Requested Visits Authorized [id number] Authorized Specialty Service Requested 4 09/30/2025 1 1 Encounter Details Date Type Department Care Team (Late st Contact Info) Description 04/02/2024 Notes [place] [address] Leon Morales [facility] [place] [address] Social History Tobacco Use Types Packs/Day Years [...] as of this encounter Progress Notes * Leon Morales, DO - 04/02/2024 1:31 PM EST Images from the original note were not included. Interventional Radiology Focused Pre-procedure H&P: PCP: Ana Gillespie APRN Referring Provider: No ref. provider found Planned procedure: G Tube check/exchange Procedure indication: G tube dependent, difficulty flushing IR workflow: Procedure request received through Interventional Radiology eDH order queue. There are no answered order specific questions. History of Present Illness: Per chart review, Jennifer Irving is a 63 y.o. female with PMH of left femoral neck fracture, bipolar, alcohol use disorder, chronic pancreatitis, GERD complicated byesophagitis and Farrell's esophagus s/p G-tube placement (09/11/22) with most recent exchange on 02/07/24 with 16 Fr balloon retained non low-profile with ENFit connector. Received a call from the patient's who noted that while the G-tube was currently functioning, he had concerns as feeds and flow through the tube appeared to be diminished. Additionally one ofthe ports had broken requiring him to duct tape it shut. IR consulted for G tube exchange. Remainder of patient's medical and surgical history, allergies, medications, and social/family history obtained below as previously outlined in patient's medical record. IR History: 09/11/22 Gtube placement ANES 11/27/22 Gtube exchange Local 03-10-23 G-Tube Exchange local 04/06/23 G-Tube Exchange Local Only 07/09/23 G-tube exchange Local only 09/17/23 G-tube exchange Local only 10/14/23 G-tube exchange Local only 02/07/24 G-tube exchange Local only Imaging: Assessment: 63 y.o. female presents to IR for G-tube exchange. Last exchange 02/07/24. Plan Planned procedure: G Tube check/exchange Labs to be performed day of procedure: No labs Sedation: No Sedation Prophylactic antibiotic : None Contrast: Omnipaque Additional medications for procedure: Lidocaine, Lido jelly Planned access site: Existing tract Position: Supine Consent: Scanned Medications to discontinue (and days held): None Cytopathology presence needed: No Case Urgency:: G1-Elective Outpatient intervention within 4-7 days Labs: Lab Results Component Value Date [...] Prior to Visit Medication Sig Dispense Refill sucralfate (Carafate) 1 gram tablet Take 1 tablet by mouth 4 times daily. [address] (Cymbalta) [address] capsule [...] daily. 180 tablet 3 Blood Sugar Diagnostic ([employer] ULTRA TEST) Strip 1 each by Other [...] glucose meter kit. 1 each 0 Insulin [place], Disposable, (BD INSULIN PEN NEEDLE UF MINI) [...] IR G-Tube Check/Change 11/27/2022 Hang Cooper PA [facility] INTERVENTIONL RAD IR G-TUBE CHECK/CHANGE 03/10/2023 IR G-Tube Check/Change 03/10/2023 Geronmio Chambers DO [facility] INTERVENTION[facility] RAD IR G-TUBE CHECK/CHANGE 04/06/2023 IR G-Tube Check/Change 04/06/2023 Gavin Carrillo MD [facility] INTERVENTIONL RAD IR G-TUBE CHECK/CHANGE 05/09/2023 IR G-Tube Check/Change [facility] RAD IR G-TUBE CHECK/CHANGE 07/09/2023 IR G-Tube Check/Change [facility] INTER[facility] RAD IR G-TUBE CHECK/CHANGE 09/17/2023 IR G-Tube Check/Change 09/17/2023 Hang Cooper PA [facility] INTERVENT[facility] RAD IR G-TUBE CHECK/CHANGE 10/14/2023 IR G-Tube Check/Change 10/14/2023 Moustapha Hart MD [facility] INTERVENTIONL RAD IR G-TUBE CHECK/CHANGE 02/07/2024 IR G-Tube Check/Change 02/07/2024 Hang Cooper PA [facility] INTER[facility] RAD IR G-TUBE PLACEMENT 09/11/2022 IR G-Tube Placement 09/11/2022 Moustapha Hart MD [facility] INTERVENTIONL RAD IR SUTURE RELEASE 09/25/2022 IR Suture Release 09/25/2022 Yoselin Ghosh PA [facility] INTERVENTION[facility] RAD PERCUTANEOUS GASTROSTOMY N/A 09/11/2022 PERCUTANEOUS GASTROSTOMY performed by Aiden Flores MD at [facility] CATY PRO COLONOSCOPY, BIOPSY N/A 03/20/2016 COLONOSCOPY FLEXIBLE, WITH BX performed by David Dejesus MD at [facility] ENDOSCOPY PRO COLONOSCOPY, DIAGNOSTIC N/A 03/01/2020 COLONOSCOPY, DIAGNOSTIC performed by David Dejesus MD at [facility] ENDOSCOPY PRO DILATE ESOPHAGUS N/A 11/05/2023 EGD-DILATATION BY SOUND OR BOUGIE, SINGLE OR MULTIPLE PASSES (WRVU 1.28) performed by David Dejesus MD at [facility] ENDOSCOPY PRO ENDOSCOPIC US EXAM, ESOPH N/A 03/31/2022 UPPER EUS- ENDOSCOPIC ULTRASOUND performed by David Dejesus MD at [facility] ENDOSCOPY PRO UP GI ENDOSCOPY, BALL DIL, 30MM N/A 12/24/2022 EGD,WITH DILATION ESOPHAGUS WITH BALLOON,< 30 MM (WRVU 2.67) performed by David Dejesus MDat [facility] ENDOSCOPY PRO UP GI ENDOSCOPY, BALL DIL, 30MM N/A 01/12/2023 EGD,WITH DILATION ESOPHAGUS WITH BALLOON,< 30 MM (WRVU 2.67) [facility] ENDOSCOPY PRO UP GI ENDOSCOPY, BALL DIL, 30MM N/A 02/26/2023 EGD,WITH DILATION ESOPHAGUS WITH BALLOON,< 30 MM (WRVU 2.67) performed by David Dejesus [facility] ENDOSCOPY PRO UP GI ENDOSCOPY, BALL DIL, 30MM N/A 03/16/2023 EGD,WITH DILATION ESOPHAGUS WITH BALLOON,< 30 MM (WRVU 2.67) performed by David Dejesus [facility] ENDOSCOPY PRO UP GI ENDOSCOPY, BALL DIL, 30MM N/A 03/30/2023 EGD,WITH DILATION ESOPHAGUS WITH BALLOON,< 30 MM (WRVU 2.67) performed by David Dejesus [facility] ENDOSCOPY PRO UP GI ENDOSCOPY, BALL DIL, 30MM N/A 04/30/2023 EGD,WITH DILATION ESOPHAGUS WITH BALLOON,< 30 MM (WRVU 2.67) performed by David Dejesus [facility] ENDOSCOPY PRO UP GI ENDOSCOPY, BALL DIL, 30MM N/A 06/01/2023 EGD,WITH DILATION ESOPHAGUS WITH BALLOON,< 30 MM (WRVU 2.67) performed by David Dejesus [facility] ENDOSCOPY PRO UP GI ENDOSCOPY, BALL DIL, 30MM N/A 08/02/2023 EGD,WITH DILATION ESOPHAGUS WITH BALLOON,< 30 MM (WRVU 2.67) [facility] UP GI ENDOSCOPY, DILATN W GUIDE N/A 10/07/2023 EGD-ESOPHOGEAL DILATATION OVER GUIDE WIRE (WRVU 2.91) performed by David Dejesus MD at [facility] ENDOSCOPY PRO UP GI ENDOSCOPY, DILATN W GUIDE N/A 11/05/2023 EGD-ESOPHOGEAL DILATATION OVER GUIDE WIRE (WRVU 2.91) performed by David Dejesus MD at [facility] ENDOSCOPY PRO UPPER GI ENDOSCOPY, BIOPSY N/A 04/03/2014 UPPER GASTROINTESTINAL ENDOSCOPY,WITH BIOPSY SINGLE OR MULTIPLE performed by David Dejesus MDat [facility] ENDOSCOPY PRO UPPER GI ENDOSCOPY, BIOPSY N/A 03/20/2016 EGD WITH BIOPSY performed by David Dejesus MD at [facility] ENDOSCOPY PRO UPPER GI ENDOSCOPY, BIOPSY N/A 11/22/2018 EGD WITH BIOPSY (WRVU 2.49) performed by David Dejesus MD at [facility] ENDOSCOPY PRO UPPER GI ENDOSCOPY, BIOPSY N/A 03/01/2020 UPPER GASTROINTESTINAL ENDOSCOPY,WITH BIOPSY SINGLE OR MULTIPLE (WRVU 2.49) performed by David Dejesus MD at [facility] ENDOSCOPY PRO UPPER GI ENDOSCOPY, BIOPSY N/A 09/23/2021 EGD WITH BIOPSY (WRVU 2.49) performed by David Dejesus MD at [facility] ENDOSCOPY PRO UPPER GI ENDOSCOPY, BIOPSY N/A 03/31/2022 EGD WITH BIOPSY (WRVU 2.49) performed by David Dejesus MD at [facility] ENDOSCOPY PRO UPPER GI ENDOSCOPY, BIOPSY N/A 07/03/2022 EGD WITH BIOPSY (WRVU 2.49) performed by David Dejesus MD at [facility] ENDOSCOPY PRO UPPER GI ENDOSCOPY, DIAGNOSTIC N/A 04/03/2014 EGD, UPPER GI ENDOSCOPY performed by David Dejesus MD at [facility] ENDOSCOPY PRO UPPER GI ENDOSCOPY, DIAGNOSTIC N/A 03/01/2020 EGD, UPPER GI ENDOSCOPY performed by David Dejesus MD at [facility] ENDOSCOPY PRO UPPER GI ENDOSCOPY, DIAGNOSTIC N/A 09/09/2022 EGD, UPPER GI ENDOSCOPY (WRVU 2.09) performed by Ayo Russ MD at [facility] MAIN OR Social History and Habits: Social History Tobacco Use Smoking status: Former Current packs/day: 0.00 Types: Cigarettes Start date: 02/26/2010 Quit date: 02/26/2021 Years since quittin.0 Smokeless tobacco: Never Tobacco comments: 1PPD x 40 years, quit 4 yearaago Substance Use Topics Alcohol use: Not Currently Drug use: Never Significant Family History: Family History Problem Relation Age of Onset Esophageal Cancer Mother Cancer Father unknown type Pertinent ROS: as per HPI Physical Exam: Pending (to be performed in IR the day of procedure) ASA: Pending (to be assessed in IR the day of procedure) Mallampati class: Pending (to be assessed in IR the day of procedure) 04/02/2024 Leon Morales DO MPH PGY-3 documented in this encounter Plan of Treatment Upcoming Encounters Date Type Department Care Team (Late st Contact Info) Description 04/26/2024 8:30 AM EST [place] [address] [facility] [place] [address] 06/05/2024 1:20 PM EST Office Visit Cardiology at [address] [phone] [facility] [place] [address] Scheduled Orders Name Type Priority Associated Diagnoses Orde r Schedule IR G-Tube Check/Change Imaging Routine Problem with gastrostomy tube Expected: 04/09/2024, Expires: 10/09/2024 Scheduled Procedures Name Priority Associated Diagnoses Date/Ti me EGD, UPPER GI ENDOSCOPY (WRV U 2.09) Peptic stricture of esophagus documented as of this encounter Visit Diagnoses Diagnosis Problem with gastrostomy tube documented in this encounter Care Teams Stone Rubber Relationship Specialty Start Date End Date Ana Gillespie APRN [address] [place] [address] PCP - General Family Medicine 02/03/19 documented as of this encounter
--- OUTSIDE RECORDS SUMMARY | 2024-04-19 22:52 | XMS_ITS | Encounter Summary ---
Author Organization [facility] [place] [address] Care Team Providers Care Car Seat Maker Name Role Phone Ana Gillespie VAUGHN Primary Care Provider [phone] Encounter Details Date Type Department Care Team (Late st Contact Info) Description 03/16/2024 Telephone [place] [address] Chiquita James, RN Social History [...] Telephone Encounter - Chiquita James, RN - 03/16/2024 11:39 AM EST Incoming VM from Jennifer Gasca's , requesting to speak with Cat for on going questions about feeding tube and supplies. Please see also Juice HWANG's note from 03/13 Forwarded documented in this encounter Plan of Treatment Upcoming Encounters Date Type Department Care Team (Late st Contact Info) Description 04/26/2024 8:30 AM [place] [phone] Gavin Carrillo MD [facility] [place] [address] 06/05/2024 1:20 PM EST Office Visit Cardiology at [address] [phone] Milagros Hernandez MD [facility] [place] [place] [address] Scheduled Procedures Name Priority Associated Diagnoses Date/Ti me EGD, UPPER GI ENDOSCOPY (WRV U 2.09) Peptic stricture of esophagus documented as of this encounter Visit Diagnoses Not on filedocumented in this encounter Care Teams Car Seat Maker Relationship Specialty Start Date End Date Ana Gillespie APRN [address] [place] [address] PCP - General Family Medicine 02/03/19 documented as of this encounter
--- OUTSIDE RECORDS SUMMARY | 2024-04-19 22:52 | XMS_ITS | Encounter Summary ---
Author Organization [facility] Address [facility] [place] [address] Care Team Providers Care Rampman Name Role Phone Ana Gillespie APRN Primary Care Provider [phone] Reason for Visit * Reason Onset Date Comments Medication Refill 03/23/2024 Encounter Details Date Type Department Care Team (Late st Contact Info) Description 03/23/2024 Refill Gastroenterology at [place] [phone] David Dejesus MD [facility] [place] [address] Peptic stricture of esophagus Social History Tobacco [...] 04/26/2024 8:30 AM EST [place] [address] Gavin Carrillo MD [facility] [place] [address] 06/05/2024 1:20 PM EST Office Visit Cardiology at [address] [phone] Milagros Hernandez MD [facility] [place] [address] Scheduled Procedures Name Priority Associated Diagnoses Date/Ti me EGD, UPPER GI ENDOSCOPY (WRV U 2.09) Peptic stricture of esophagus documented as of this encounter Visit Diagnoses Diagnosis Peptic stricture of esophagus Stricture and stenosis of esophagus documented in this encounter Care Teams Rampman Relationship Specialty Start Date End Date Ana Gillespie APRN [address] [place] [address] PCP - General Family Medicine 02/03/19 documented as of this encounter
--- OUTSIDE RECORDS SUMMARY | 2024-04-19 22:52 | XMS_ITS | Encounter Summary ---
Author Organization [facility] [place] [address] Care Team Providers Care Spring Former Name Role Phone Ana Gillespie VAUGHN Primary Care Provider [phone] Encounter Details Date Type Department Care Team (Late st Contact Info) Description 03/07/2024 Telephone Cardiology at [address] [phone] Chiquis Jean, RN Social History Tobacco Use [...] Telephone Encounter - Chiquis Jean RN - 03/07/2024 3:31 PM EDT TC to Dr Denney per Dr Hernandez, to let him know she is requesting he call for consult. Dr Benson, states Mrs Irving's BP has stablilized, and as she will be transferred to the Transitional Care Floor, prior to going home . He will plan to start Metoprolol, and if patient tolerates well, he will restart Entresto at 1/[address] Denney states if Dr Hernandez has an opportunity, or has any other thoughts, regarding treatment,he is available for the nest 2 days. Chiquis Jean (Jodie), ERI, BSN Cardiology Ambulatory Clinic * Telephone Encounter - Chiquis Jean RN - 03/07/2024 2:33 PM EDT TC from Dr Chacon, hospitalist, with [facility], [facility]. Dr Chi states Mrs Irving's Blood Pressure has stabilized off of Entresto and Metoprolol, and she will be discharged in [address] Denney states an updated Echocardiogram has been done, and he would like to consult with Dr Hernandez, for discharge plan, for Mrs Irving. Call Back, . Forwarding to Dr Hernandez. Chiquis Jean (Jodie) RN, BSN Cardiology Ambulatory Clinic * Telephone Encounter - Chiquis Jean RN - 03/07/2024 1:15 PM EDT RTC to Mr Irving, who states his is an inpatient, at [facility], due to hip surgery, and she is not on her Entresto, and still off of Metoprolol. Mr Irving, states he will requesting that Mrs Irving's attending MD to call for consult forDr Hernandez. Mr Irving states Mrs Irving will not be able to make her 03/10/2024, appointment with Dr Hernandez, as she is still in the hospital, post hip surgery. Chiquis Jean RN (Jodie), BSN Cardiology Ambulatory Clinic documented in this encounter Plan of Treatment Upcoming Encounters Date Type Department Care Team (Late st Contact Info) Description 04/26/2024 8:30 AM EST [place] [address] Gavin Carrillo MD [facility] [place] [address] 06/05/2024 1:20 PM EST Office Visit Cardiology at [address] [phone] Milagros Hernandez MD [facility] [place] [address] Scheduled Procedures Name Priority Associated Diagnoses Date/Ti me EGD, UPPER GI ENDOSCOPY (WRV U 2.09) Peptic stricture of esophagus documented as of this encounter Visit Diagnoses Not on filedocumented in this encounter Care Teams Spring Former Relationship Specialty Start Date End Date Ana Gillespie APRN [address] [place] [address] PCP - General Family Medicine 02/03/19 documented as of this encounter
--- OUTSIDE RECORDS SUMMARY | 2024-04-19 22:52 | XMS_ITS | Encounter Summary ---
Author Organization [facility] Address [facility] [place] [address] Care Team Providers Care Beam Machine Operator Name Role Phone Ana Gillespie VAUGHN Primary Care Provider Reason for Referral * Consultation (Routine) - Closed Specialty Diagnoses / Procedures Referred By Esperanza rodríguez Referred To Contact Thoracic Surgery Diagnoses Peptic stricture of esophagus Peptic stricture of esophagus David Dejesus MD [facility] [place] [address] Geronimo Mojica MD [facility] [place] [address] Referral ID Status Reason Start Date Expiration Date V isits Requested Visits Authorized [id number] Closed Consult, Test & Treat 11/05/2023 11/04/2024 1 1 Encounter Details Date Type Department Care Team (Late st Contact Info) Description 11/05/2023 Orders Only Gastroenterology at [place] [phone] David Dejesus MD [facility] [place] [address] Peptic stricture of esophagus Social History Tobacco [...] 04/26/2024 8:30 AM EST Appointment [place] [phone] Gavin Carrillo MD [facility] [place] [address] 06/05/2024 1:20 PM EST Office Visit Cardiology at [address] [phone] Milagros Hernandez MD [facility] [place] [address] Scheduled Procedures Name Priority Associated [...] esophagus documented in this encounter Care Teams Beam Machine Operator Relationship Specialty Start Date End Date Ana Gillespie APRN [address] [place] [address] PCP - General Family Medicine 02/03/19 documented as of this encounter
--- OUTSIDE RECORDS SUMMARY | 2024-04-19 22:52 | XMS_ITS | Encounter Summary ---
Author Organization [facility] Address [facility] [place] [address] Care Team Providers Care Forest Nursery Worker Name Role Phone Jose Miguel Ana MENDES Primary Care Provider [phone] Encounter Details Date Type Department Care Team [...] 04/26/2024 8:30 AM [place] [phone] Gavin Carrillo MD [facility] INTERVENT[place] [address] 06/05/2024 1:20 PM EST Office Visit Cardiology at [address] [phone] Milagros Hernandez MD [facility] [place] [address] Scheduled Procedures Name Priority Associated Diagnoses Date/Ti me EGD, UPPER GI ENDOSCOPY (WRV U 2.09) Peptic stricture of esophagus documented as of this encounter Visit Diagnoses Not on filedocumented in this encounter Care Teams Forest Nursery Worker Relationship Specialty Start Date End Date Ana Gillespie APRN [address] [place] [address] PCP - General Family Medicine 02/03/19 documented as of this encounter
--- OUTSIDE RECORDS SUMMARY | 2024-04-19 22:52 | XMS_ITS | Encounter Summary ---
Author Organization [facility] [place] [address] Care Team Providers Care Air Analysis Technician Name Role Phone Ana Gillespie VAUGHN Primary Care Provider [phone] Reason for Visit * Reason Comments Medication Refill Encounter Details Date Type Department Care Team (Late st Contact Info) Description 12/13/2023 [place] [phone] Elsie Erickson MANAGEMENT SCIENTIST [facility] [place] [address] Social History Tobacco Use Types Packs/Day Years [...] call and schedule as pt doesn't have [facility] available. documented in this encounter Plan of Treatment Upcoming Encounters Date Type Department Care Team (Late st Contact Info) Description 04/26/2024 8:30 AM [place] [phone] Gavin Carrillo MD [facility] [place] [address] 06/05/2024 1:20 PM EST Office Visit Cardiology at [address] [phone] Milagros Hernandez MD [facility] [place] [address] Scheduled Procedures Name Priority Associated Diagnoses Date/Ti me EGD, UPPER GI ENDOSCOPY (WRV U 2.09) Peptic stricture of esophagus documented as of this encounter Visit Diagnoses Not on filedocumented in this encounter Care Teams Air Analysis Technician Relationship Specialty Start Date End Date Ana Gillespie APRN [address] [place] [address] PCP - General Family Medicine 02/03/19 documented as of this encounter
--- OUTSIDE RECORDS SUMMARY | 2024-04-19 22:52 | XMS_ITS | Encounter Summary ---
Author Organization [facility] [place] [address] Care Team Providers Care Chief Lock Operator Name Role Phone Ana Gillespie APRN Primary Care Provider [phone] Encounter Details Date Type Department Care Team (Late st Contact Info) Description 02/05/2024 Orders Only Radiology at [facility] [place] [address] Sonny Pearson DO [facility] [place] [address] Problem with gastrostomy tube Social History Tobacco [...] IR G-Tube Check/Change 11/27/2022 Hang Cooper PA [facility] INTERVENTIONL RAD IR G-TUBE CHECK/CHANGE 03/10/2023 IR G-Tube Check/Change 03/10/2023 Geronimo Chambers DO [facility] INTERVENTIONL RAD IR G-TUBE CHECK/CHANGE 04/06/2023 IR G-Tube Check/Change 04/06/2023 Gavin Carrillo MD [facility] INTERVENTIONL RAD IR G-TUBE CHECK/CHANGE 05/09/2023 IR G-Tube Check/Change [facility] INTERVENTIONL RAD IR G-TUBE CHECK/CHANGE 07/09/2023 IR G-Tube Check/Change [facility] INTERVENTION[facility] RAD IR G-TUBE CHECK/CHANGE 09/17/2023 IR G-Tube Check/Change 09/17/2023 Hang Cooper PA [facility] INTERVENTIONL RAD IR G-TUBE CHECK/CHANGE 10/14/2023 IR G-Tube Check/Change 10/14/2023 Moustapha Hart MD [facility] INTERVENTIONL RAD IR G-TUBE PLACEMENT 09/11/2022 IR G-Tube Placement 09/11/2022 Moustapha Hart MD [facility] INTERVENTIONL RAD IR SUTURE RELEASE 09/25/2022 IR Suture Release 09/25/2022 Yoselin Ghosh PA [facility] INTERVENTIONL RAD PERCUTANEOUS GASTROSTOMY N/A 09/11/2022 PERCUTANEOUS GASTROSTOMY performed by Aiden Flores MD at [facility] CATY PRO COLONOSCOPY, BIOPSY N/A 03/20/2016 COLONOSCOPY FLEXIBLE, WITH BX performed by David Dejesus MD at [facility] ENDOSCOPY PRO COLONOSCOPY, DIAGNOSTIC N/A 03/01/2020 COLONOSCOPY, DIAGNOSTIC performed by David Dejesus MD at [facility] ENDOSCOPY PRO DILATE ESOPHAGUS N/A 11/05/2023 EGD-DILATATION BY SOUND OR BOUGIE, SINGLE OR MULTIPLE PASSES (WRVU 1.28) performed by David Dejesus MD at [facility] ENDOSCOPY PRO ENDOSCOPIC US EXAM, ESOPH N/A 03/31/2022 UPPER EUS- ENDOSCOPIC ULTRASOUND performed by David Dejesus MD at [facility] ENDOSCOPY PRO UP GI ENDOSCOPY, BALL DIL, 30MM N/A 12/24/2022 EGD,WITH DILATION ESOPHAGUS WITH BALLOON,< 30 MM (WRVU 2.67) performed by David Dejesus MDat [facility] ENDOSCOPY PRO UP GI ENDOSCOPY, BALL DIL, 30MM N/A 01/12/2023 EGD,WITH DILATION ESOPHAGUS WITH BALLOON,< 30 MM (WRVU 2.67) performed by David Dejesus MDat [facility] ENDOSCOPY PRO UP GI ENDOSCOPY, BALL DIL, 30MM N/A 02/26/2023 EGD,WITH DILATION ESOPHAGUS WITH BALLOON,< 30 MM (WRVU 2.67) performed by David Dejesus MDat [facility] ENDOSCOPY PRO UP GI ENDOSCOPY, BALL DIL, 30MM N/A 03/16/2023 EGD,WITH DILATION ESOPHAGUS WITH BALLOON,< 30 MM (WRVU 2.67) performed by David Dejesus [facility] ENDOSCOPY PRO UP GI ENDOSCOPY, BALL DIL, 30MM N/A 03/30/2023 EGD,WITH DILATION ESOPHAGUS WITH BALLOON,< 30 MM (WRVU 2.67) performed by David Dejesus [facility] ENDOSCOPY PRO UP GI ENDOSCOPY, BALL DIL, 30MM N/A 04/30/2023 EGD,WITH DILATION ESOPHAGUS WITH BALLOON,< 30 MM (WRVU 2.67) performed by David Dejesus [facility] ENDOSCOPY PRO UP GI ENDOSCOPY, BALL DIL, 30MM N/A 06/01/2023 EGD,WITH DILATION ESOPHAGUS WITH BALLOON,< 30 MM (WRVU 2.67) performed by David Dejesus [facility] ENDOSCOPY PRO UP GI ENDOSCOPY, BALL DIL, 30MM N/A 08/02/2023 EGD,WITH DILATION ESOPHAGUS WITH BALLOON,< 30 MM (WRVU 2.67) performed by David Dejesus [facility] ENDOSCOPY PRO UP GI ENDOSCOPY, DILATN W GUIDE N/A 10/07/2023 EGD-ESOPHOGEAL DILATATION OVER GUIDE WIRE (WRVU 2.91) performed by David Dejesus MD at [facility] ENDOSCOPY PRO UP GI ENDOSCOPY, DILATN W GUIDE N/A 11/05/2023 EGD-ESOPHOGEAL DILATATION OVER GUIDE WIRE (WRVU 2.91) performed by David Dejesus MD at [facility] ENDOSCOPY PRO UPPER GI ENDOSCOPY, BIOPSY N/A 04/03/2014 UPPER GASTROINTESTINAL ENDOSCOPY,WITH BIOPSY SINGLE OR MULTIPLE [facility]PPER GI ENDOSCOPY, BIOPSY N/A 03/20/2016 EGD WITH BIOPSY performed by David Dejesus MD at [facility] ENDOSCOPY PRO UPPER GI ENDOSCOPY, BIOPSY N/A 11/22/2018 EGD WITH BIOPSY (WRVU 2.49) performed by David Dejesus MD at [facility] ENDOSCOPY PRO UPPER GI ENDOSCOPY, BIOPSY N/A 03/01/2020 UPPER GASTROINTESTINAL ENDOSCOPY,WITH BIOPSY SINGLE OR MULTIPLE (WRVU 2.49) performed by David Dejesus MD at [facility] ENDOSCOPY PRO UPPER GI ENDOSCOPY, BIOPSY N/A 09/23/2021 EGD WITH BIOPSY (WRVU 2.49) performed by David Dejesus MD at [facility] ENDOSCOPY PRO UPPER GI ENDOSCOPY, BIOPSY N/A 03/31/2022 EGD WITH BIOPSY (WRVU 2.49) performed by David Dejesus MD at [facility] ENDOSCOPY PRO UPPER GI ENDOSCOPY, BIOPSY N/A 07/03/2022 EGD WITH BIOPSY (WRVU 2.49) performed by David Dejesus MD at [facility] ENDOSCOPY PRO UPPER GI ENDOSCOPY, DIAGNOSTIC N/A 04/03/2014 EGD, UPPER GI ENDOSCOPY performed by David Dejesus MD at [facility] ENDOSCOPY PRO UPPER GI ENDOSCOPY, DIAGNOSTIC N/A 03/01/2020 EGD, UPPER GI ENDOSCOPY performed by David Dejesus MD at [facility] ENDOSCOPY PRO UPPER GI ENDOSCOPY, DIAGNOSTIC N/A 09/09/2022 EGD, UPPER GI ENDOSCOPY (WRVU 2.09) performed by Ayo Russ MD at [facility] MAIN OR Medications: Current Outpatient Medications on [...] glucose meter kit. 1 each 0 Insulin [place], Disposable, (BD INSULIN PEN NEEDLE UF MINI) 31 x 3/16 Needle 1 Device by [facility].(Non-Drug; Combo Route) route 3 [...] procedure) Assessment: 63 y.o. female presents to [facility] for G Tube exchange. Last exchange [...] 04/26/2024 8:30 AM [place] [address] Gavin Carrillo MD [facility] INTERVENTIONAL [place] [address] 06/05/2024 1:20 PM EST Office Visit Cardiology at [address] [phone] Milagros Hernandez MD [facility] [place] [address] Scheduled Procedures Name Priority Associated Diagnoses Date/Ti me EGD, UPPER GI ENDOSCOPY (WRV U 2.09) Peptic stricture of esophagus documented as of this encounter Visit Diagnoses Diagnosis Problem with gastrostomy tube documented in this encounter Care Teams Chief Lock Operator Relationship Specialty Start Date End Date Ana Gillespie APRN [address] [place] [address] PCP - General Family Medicine 02/03/19 documented as of this encounter
--- OUTSIDE RECORDS SUMMARY | 2024-04-19 22:52 | XMS_ITS | Encounter Summary ---
Author Organization [facility] Address [facility] [place] [address] Care Team Providers Care Aws Consultant Name Role Phone Ana Gillespie APRN Primary Care Provider [phone] Encounter Details Date Type Department Care Team (Late st Contact Info) Description 02/23/2024 Telephone [place] [phone] [facility] NUTRITION SERVICES [place] [id number] Social History Tobacco Use Types Packs/Day Years [...] 04/26/2024 8:30 AM EST [place] [address] Gavin Carrillo MD [facility] INTER[place] [address] 06/05/2024 1:20 PM EST Office Visit Cardiology at [address] [phone] Milagros Hernandez MD [facility] [place] [address] Scheduled Procedures Name Priority Associated Diagnoses Date/Ti me EGD, UPPER GI ENDOSCOPY (WRV U 2.09) Peptic stricture of esophagus documented as of this encounter Visit Diagnoses Not on filedocumented in this encounter Care Teams Aws Consultant Relationship Specialty Start Date End Date Ana Gillespie APRN [address] [place] [address] PCP - General Family Medicine 02/03/19 documented as of this encounter
--- OUTSIDE RECORDS SUMMARY | 2024-04-19 22:52 | XMS_ITS | Encounter Summary ---
Author Organization [facility] Address [facility] Marly petersen [place] [id number] Care Team Providers Care Bench Loom Weaver Name Role Phone Ana Gillespie APRN Primary Care Provider [phone] Encounter Details Date Type Department Care Team [...] 04/26/2024 8:30 AM EST Appointment Radiology at [place] [phone] Gavin Carrillo MD [facility] [place] [address] 06/05/2024 1:20 PM EST Office Visit Cardiology at [address] [phone] Milagros Hernandez MD [facility] [place] [address] Scheduled Procedures Name Priority Associated Diagnoses Date/Ti me EGD, UPPER GI ENDOSCOPY (WRV U 2.09) Peptic stricture of esophagus documented as of this encounter Visit Diagnoses Not on filedocumented in this encounter Care Teams Bench Loom Weaver Relationship Specialty Start Date End Date Ana Gillespie APRN [address] [place] [address] PCP - General Family Medicine 02/03/19 documented as of this encounter
--- OUTSIDE RECORDS SUMMARY | 2024-04-19 22:52 | XMS_ITS | Encounter Summary ---
Author Organization [facility] Address [facility] [place] [address] Care Team Providers Care Sharepoint Consultant Name Role Phone Ana Gillespie APRN Primary Care Provider [phone] Encounter Details Date Type Department Care Team (Late st Contact Info) Description 03/20/2024 Telephone [place] [phone] [facility] [place] [address] Social History Tobacco Use Types Packs/Day Years [...] Telephone Encounter - Tenisha Fairchild, HUGH - 03/20/2024 11:28 AM EST Images from the original note were not included. Returned Rogelio's call about his 's tube feeds. is out of hospital after fall 3 weeks ago, broke her right hip. Doing PT since being home. He has questions about tube feed supplies. He wants to make sure that Dr. Dejesus is OK with taking over her orders and I told him yes, Dr. Dejesus confirmed. I sent order on 02/22: Will make sure that [facility] has above order as the most recent and active order because Rogelio states that PCP may have also sent an order and he didn't receive the correct supplies. [facility] is calling him again to see what supplies needed for monthly shipment and Rogelio wants to make sure orders are correct. Will verify with [facility]. He will call back if any issues. documented in this encounter Plan of Treatment Upcoming Encounters Date Type Department Care Team (Late st Contact Info) Description 04/26/2024 8:30 AM EST [place] [address] Gavin Carrillo MD [facility] [place] [address] 06/05/2024 1:20 PM EST Office Visit Cardiology at [address] [phone] Milagros Hernandez MD [facility] [place] [address] Scheduled Procedures Name Priority Associated Diagnoses Date/Ti me EGD, UPPER GI ENDOSCOPY (WRV U 2.09) Peptic stricture of esophagus documented as of this encounter Visit Diagnoses Not on filedocumented in this encounter Care Teams Sharepoint Consultant Relationship Specialty Start Date End Date Ana Gillespie APRN [address] [place] [address] PCP - General Family Medicine 02/03/19 documented as of this encounter
--- OUTSIDE RECORDS SUMMARY | 2024-04-19 22:52 | XMS_ITS | Encounter Summary ---
[place] [address] Care Team Providers Care Bridge Inspector Name Role Phone Ana Gillespie VAUGHN Primary Care Provider [phone] Reason for Referral * Diagnostic Test (Routine) - Closed Specialty Diagnoses / Procedures Referred By Contac t Referred To Contact Cardiology Diagnoses Hypotension, unspecified hypotension type HFrEF (heart failure with reduced ejection fraction) Procedures Mobile Bandar Hernandez MD [address] [place] [address] [place] [address] [facility] [place] [address] Referral ID Status Reason Start Date Expiration Date V isits Requested Visits Authorized [id number] Closed Specialty Service Requested 03/03/2024 03/03/2025 1 1 Reason for Visit * Diagnostic Test (Routine) - Closed Specialty Diagnoses / Procedures Referred By Contac t Referred To Contact Cardiology Diagnoses Hypotension, unspecified hypotension type HFrEF (heart failure with reduced ejection fraction) Procedures Mobile Bandar Hernandez MD [address] [place] [address] [place] [address] [facility] [place] [address] Referral ID Status Reason Start Date Expiration Date V isits Requested Visits Authorized [id number] Closed Specialty Service Requested 03/03/2024 03/03/2025 1 1 Encounter Details Date Type Department Care Team (Latest Contact Info) Description 03/03/2024 11:49 AM EDT - 03/03/2024 11:59 PM EDT Hospital Encounter [place] [address] Bandar Guerra MD [address] [place] [address] [place] [address] Hypotension, unspecified hypotension type; HFrEF (heart failure with reduced ejection fraction) Discharge Disposition: Home Social History Tobacco Use [...] 6 tablet 08/02/2023 sacubitriL-valsartan (Entresto) 24-26 mg tabletIndications:HF rEF (heart failure with reduced ejection fraction) 1 [...] units; >250 GIVE 6 units 12 mL 09/25/2022 atorvastatin (Lipitor) 80 mg tablet 1 [...] meter kit. 1 each 0 12/14/2014 Insulin [place], Disposable, (BD INSULIN PEN NEEDLE UF MINI) 31 x 3/16 NeedleIndications:Di abetes mellitus type 2, uncontrolled 1 Device by Misc.(Non-Drug; Combo Route) route 3 times daily as needed. 100 each 11 12/13/2014 sucralfate (Carafate) 1 gram tablet Take 1 tablet by mouth 4 times daily. 360 tablet 3 10/22/2022 03/23/2024 documented as of this encounter Plan of Treatment Upcoming Encounters Date Type Department Care Team (Late st Contact Info) Description 04/26/2024 8:30 AM EST [place] [phone] Gavin Carrillo MD [facility] [place] [address] 06/05/2024 1:20 PM EST Office Visit Cardiology at [address] [phone] Milagros Hernandez MD [facility] [place] [address] Scheduled Procedures Name Priority Associated Diagnoses Date/Ti me EGD, UPPER GI ENDOSCOPY (WRV U 2.09) Peptic stricture of esophagus documented as of this encounter Procedures Procedure Name Priority Date/Time Associated Diagnosis Comments ECHO COMPLETE Routine 03/03/2024 12:52 PM EDT Hypotension, unspecified hypotension type HFrEF (heart failure with reduced ejection fraction) documented in this encounter Results * ECHO COMPLETE (03/03/2024 12:52 PM EDT) Anatomical Region Laterality Modality Other 03/03/2024 9:49 AM EDT Narrative 03/03/2024 1:08 PM EDT [address] [place] [address] ? Echocardiogram Report Name: JENNIFER IRVING ? Study Date: 03/03/2024 09:49 AMBP: 116/55 mmHg : 1960 ? Height: 155 cm ? Account: [id number] Age: 63 yrs ? Weight: 76 kg Gender: Female ?BSA: 1.8 m2 Ordering Physician: BANDAR GUERRA Referring Physician: BANDAR GUERRA Performed By: MARGAUX Reason For Study: HFrEF Exam Location: [facility]. Interpretation Summary -Left ventricle is of normal size. Wall thickness is normal. Left ventricular systolic function is normal. The left ventricular ejection fraction is 59% by Dahl's biplane. There are no segmental wall motion abnormalities. -The right ventricle is of normal size. Right ventricular systolic function is normal. -There is no hemodynamically significant valve disease. -Compared to the prior from 08/19/2022, LV systolic function has significantly improved. Procedure Complete-[id number]. Suboptimal quality. This study is limited because the patient was unable to turn. This study is limited because no subcostal window(s). Left Ventricle Left ventricle is of normal size. Wall thickness is normal. Left ventricular systolic function is normal. The left ventricular ejection fraction is 59% by Dahl's biplane. There are no segmental wall motion abnormalities. Right Ventricle The right ventricle is of normal size. Right ventricular systolic function is normal. Left Atrium The left atrium is normal. Right Atrium The right atrium is normal. Aortic Valve The aortic valve is structurally normal. The aortic valve is tricuspid. There is no aortic stenosis. There is no aortic regurgitation. Mitral Valve The mitral valve is structurally normal. There is no mitral stenosis. There is trace mitral regurgitation. Tricuspid Valve The tricuspid valve is structurally normal. There is no tricuspid stenosis. There is trace tricuspid regurgitation. Pulmonic Valve The pulmonic valve appears to be structurally normal. There is no valvular pulmonic stenosis. There is no pulmonic valve regurgitation. Great Arteries The aortic root is of normal size. No abnormalities are identified. Ascending aorta is normal in size. Venous Inferior vena cava is not well visualized. Pericardium/Pleural The pericardium is not well visualized. ? 2D Measurements ? Volumes ?IVSd: 0.84 cm ?LA Volume Index: ?LVIDd: 4.0 cm ?11.8 ml/m2 ?LVIDs: 2.8 cm ?LVPWd: 0.76 cm ? SV(LVOT): 78.2 ml ?RWT: 0.38 {ratio} ?LV Stroke Volume: 78.2 ml ?LV mass(C)d: 95.1 grams ?SI(LVOT): 44.7 ml/m2 ?LV mass(C)dI: 54.3 grams/m2 ?Ao root diam: 2.7 cm ?Ao root diam index: 1.6 ?asc Aorta Diam: 2.7 cm ?LVOT diam: 2.0 cm ?TAPSE_phl: 1.9 cm Doppler LV V1 VTI: 25.7 cm LVOT max Velocity: 122.1 cm/sec Ao V2 VTI: 24.5 cm Ao Max Gurvinder: 145.0 cm/sec Ao valve max: 8.4 mmHg Ao valve mean: 4.0 mmHg MV E max gurvinder: 68.3 cm/sec MV A max gurvinder: 99.0 cm/sec MV E/A: 0.69 MV dec time: 0.26 sec MV mean P.4 mmHg Med Peak E' Gurvinder: 10.2 cm/sec E/e' (med): 6.7 KAREL(I,D): 3.2 cm2 Dimensionless index Aov: 1.0 TR max gurvinder: 266.6 cm/sec I ?WMSI = 1.00 ? % Normal = 100 ?Segments ??Size X - Cannot ?? 1 - Normal ?? 2 - ? 3 - Akinetic 4 - ?1-2 ? small Interpret ? Hypokinetic ?Dyskinetic ?? 3-5 ? moderate 5 - ? 6-14 ?large Aneurysmal ?15-16 ?? diffuse Procedure Note Patric Calderon MD - 03/03/2024 1 [place] [address] Echocardiogram Report Name: IRVINGJENNIFER Study Date:03/03/2024 09:49 AMBP: 116/55 mmHg : 1960 Height: 155 cm Account: [id number] Age: 63 yrs Weight: 76 kg Gender: Female BSA: 1.8 m2 Ordering Physician: BANDAR GUERRA Referring Physician: BANDAR GUERRA Performed By: MARGAUX Reason For Study: HFrEF Exam Location: [facility]. Interpretation Summary -Left ventricle is of normal size. Wall thickness is normal. Leftventricular systolic function is normal. The left ventricular ejection fraction is 59%by Dahl's biplane. There are no segmental wall motion abnormalities. -The right ventricle is of normal size. Right ventricular systolicfunction is normal. -There is no hemodynamically significant valve disease. -Compared to the prior from 08/19/2022, LV systolic function hassignificantly improved. Procedure Complete-[id number]. Suboptimal quality. This study is limited because thepatient was unable to turn. This study is limited because no subcostal window(s). Left Ventricle Left ventricle is of normal size. Wall thickness is normal. Leftventricular systolic function is normal. The left ventricular ejection fraction is 59%by Dahl's biplane. There are no segmental wall motion abnormalities. Right Ventricle The right ventricle is of normal size. Right ventricular systolic functionis normal. Left Atrium The left atrium is normal. Right Atrium The right atrium is normal. Aortic Valve The aortic valve is structurally normal. The aortic valve is tricuspid.There is no aortic stenosis. There is no aortic regurgitation. Mitral Valve The mitral valve is structurally normal. There is no mitral stenosis.There is trace mitral regurgitation. Tricuspid Valve The tricuspid valve is structurally normal. There is no tricuspidstenosis. There is trace tricuspid regurgitation. Pulmonic Valve The pulmonic valve appears to be structurally normal. There is novalvular pulmonic stenosis. There is no pulmonic valve regurgitation. Great Arteries The aortic root is of normal size. No abnormalities are identified.Ascending aorta is normal in size. Venous Inferior vena cava is not well visualized. Pericardium/Pleural The pericardium is not well visualized. 2D Measurements Volumes IVSd: 0.84 cm LA VolumeIndex: LVIDd: 4.0 cm 11.8 ml/m2 LVIDs: 2.8 cm LVPWd: 0.76 cm SV(LVOT): 78.2ml RWT: 0.38 {ratio} LV Stroke Volume:78.2 ml LV mass(C)d: 95.1 grams SI(LVOT): 44.7ml/m2 LV mass(C)dI: 54.3 grams/m2 Ao root diam: 2.7 cm Ao root diam index: 1.6 asc Aorta Diam: 2.7 cm LVOT diam: 2.0 cm TAPSE_phl: 1.9 cm Doppler LV V1 VTI: 25.7 cm LVOT max Velocity: 122.1 cm/sec Ao V2 VTI: 24.5 cm Ao Max Gurvinder: 145.0 cm/sec Ao valve max: 8.4 mmHg Ao valve mean: 4.0 mmHg MV E max gurvinder: 68.3 cm/sec MV A max gurvinder: 99.0 cm/sec MV E/A: 0.69 MV dec time: 0.26 sec MV mean P.4 mmHg Med Peak E' Gurvinder: 10.2 cm/sec E/e' (med): 6.7 KAREL(I,D): 3.2 cm2 Dimensionless index Aov: 1.0 TR max gurvinder: 266.6 cm/sec I WMSI = 1.00 % Normal = 100 SegmentsSize X - Cannot 1 - Normal 2 - 3 - Akinetic 4 - 1-2small Interpret Hypokinetic Dyskinetic 3-5moderate 5 - 6-14large Aneurysmal 15-16diffuse Bandar Guerra MD ECHO ORDERABLES documented in this encounter Visit Diagnoses Diagnosis Hypotension, unspecified hypotension type HFrEF (heart failure with reduced ejection fraction) documented in this encounter Care Teams Bridge Inspector Relationship Specialty Start Date End Date Ana Gillespie APRN [address] [place] [address] PCP - General Family Medicine 02/03/19 documented as of this encounter
--- OUTSIDE RECORDS SUMMARY | 2024-04-19 22:52 | XMS_ITS | Encounter Summary ---
Author Organization [facility] Address [facility] [place] [address] Care Team Providers Care Dietary Aid Name Role Phone Ana Gillespie APRN Primary Care Provider [phone] Encounter Details Date Type Department Care Team (Late Contact Info) Description 01/19/2024 [place]phone [place] [address] Chiquita James, RN Social History [...] regarding her tube feed. States he called [facility] today for supplies for her and was told her case has been closed requestingan order for her tube feed to resume be sent to [facility]. Forwarded documented in this encounter Plan of Treatment Upcoming Encounters Date Type Department Care Team (Late Contact Info) Description 04/26/2024 8:30 AM [place] [address] Gavin Carrillo MD [facility] [place] [address] 06/05/2024 1:20 PM EST Office Visit Cardiology at [address] [phone] Milagros Hernandez MD [facility] [place] [address] Scheduled Procedures Name Priority Associated Diagnoses Date/Ti me EGD, UPPER GI ENDOSCOPY (WRV U 2.09) Peptic stricture of esophagus documented as of this encounter Visit Diagnoses Not on filedocumented in this encounter Care Teams Dietary Aid Relationship Specialty Start Date End Date Ana Gillespie APRN [address] [place] [address] PCP - General Family Medicine 02/03/19 documented as of this encounter
--- OUTSIDE RECORDS SUMMARY | 2024-04-19 22:52 | XMS_ITS | Encounter Summary ---
Author Organization [facility] Address [facility] [place] [address] Care Team Providers Care Prescription Clerk Name Role Phone Ana Gillespie VAUGHN Primary Care Provider [phone] Reason for Visit * Diagnostic Test (Routine) - Closed Specialty Diagnoses / Procedures Referred By Esperanza rodríguez Referred To Contact Radiology Diagnoses Problem with gastrostomy tube Procedures IR G-Tube Check/Change IR GJ-Tube Check/Change Sonny Pearson DO [facility] [place] [address] [facility] [place] [address] Referral ID Status Reason Start Date Expiration Date V isits Requested Visits Authorized [id number] Closed Specialty Service Requested 02/05/2024 08/04/2025 1 1 Encounter Details Date Type Department Care Team (Latest Contact Info) Description 02/07/2024 7:43 AM EDT - 02/07/2024 11:59 PM EDT Hospital [place] [phone] Rio Hill MD [facility] [place] [address] Problem with gastrostomy tube Discharge Disposition: Home [...] or its attachments. INTERVENTIONAL RADIOLOGY PHONE NUMBERS [phone] If you have a NON Low profile feeding tube, call with any questions or concerns. During regular office hours call: [phone]. If it is after regular office hours, weekends or holidays, please call [phone] and ask to speak to the Rubber Chemist conflicts analyst for Interventional Radiology. If you have a low profile ???ESTRELLITA-BARLOW?? feeding tube, please call Dejah Stauffer RN for any issues: [phone]. Revised 02/23/19 documented in this encounter Medications [...] kit. 1 each 0 12/14/2014 Insulin [place], Disposable, (BD INSULIN PEN NEEDLE UF MINI) 31 x 3/16 NeedleIndications:Di abetes mellitus type 2, uncontrolled 1 Device by Misc.(Non-Drug; Combo Route) route 3 times daily as needed. 100 each 11 12/13/2014 sucralfate (Carafate) 1 gram tablet Take 1 tablet by mouth 4 times daily. 360 tablet 3 10/22/2022 03/23/2024 documented as of this encounter Progress Notes * Merly Barry RN - 02/07/2024 8:53 AM EDT [facility] Name: Jennifer Irving Date of : 1960 AGE: 63 y.o. Address: [address] [address] (home) Mobile: Telephone Information: Referring Provider: Sonny Pearson REASON FOR VISIT: Order Questions Answers Where will study be performed? [facility] Radiology [120] To be scheduled Next [...] 04/26/2024 8:30 AM [place] [address] Gavin Carrillo MD [facility] [address] [place] [address] 06/05/2024 1:20 PM EST Office Visit Cardiology at [address] [phone] Milagros Hernandez MD [facility] [place] [address] Scheduled Procedures Name Priority Associated [...] None. Technique: The patient was positioned supine. University Relations Vice President imaging was performed with mixed air/contrast injection [...] of a EnFit 16 F gastrostomy tube. chlorination operator: Hang Cooper PA-C Attending of record: Rio Hill MD 02/07/2024 I, Dr. Hill, was not present for this procedure. Rio Hill MD IMG IR ORDERABLES documented in this encounter Visit Diagnoses Diagnosis Problem with gastrostomy tube documented in this encounter Care Teams Prescription Clerk Relationship Specialty Start Date End Date Ana Gillespie APRN [address] [place] [address] PCP - General Family Medicine 02/03/19 documented as of this encounter
--- OUTSIDE RECORDS SUMMARY | 2024-04-19 22:52 | XMS_ITS | Continuity of Care Document ---
Author Organization [place] - [facility], [facility] Address [address] [place] [address] Care Team Providers Care Hand Cultivator Name Role Phone CHRIS GILLESPIE Primary Care Provider [phone] RICHARD SANTANA OTHER FLAVIO MOSELEY OTHER AGGEI PUGA Grain Sampler Assessment Encounter Date Assessment Date Assessment LastModified by Organization Details LastModified Time 03/29/2024 03/29/2024 Reclast--- [email or web address] Not available 10:45:45 Plan of Treatment Reminders Order Date Submit Date Provider Last Modified By Organization Details Last Modified Time Details Appointments Office Visit 30 2023 10:00A M CHRIS GILLESPIE, Not available Not available Not available Lab hemoglobi n A1C, fingersti ck 2023 024 [email or web address] [facility], [address] [place] [address], [address], 03/29/2024 13:21:35 Referral None recorded. Procedures None recorded. Surgeries None recorded. Imaging None recorded. Medication Orders Mapap (acetamin ophen) 500 mg/15 mL oral liquid 2023 024 [email or web address] [facility], [address] [facility], [place], [address], 03/30/2024 12:36:58 Patient TargetsNo targets recorded. Patient InstructionsNo instructions recorded. Reason for Referral None Reported. Results Created Date Observation Date Name Description Value Unit Range Abnormal Flag Note LastModifiedBy Organization Detail LastModifiedTime 03/29/20 24 03/29/2024 hemog lobin A1C, finge rstic k hemoglobin A1C 5.1 % <5.7 Not Available [facility] [address] [place], [address], 03/29/2024 10:30:50 02/29/20 24 02/29/2024 CT imagi ng jose cruz t Patiela t Name: Arley Norman Unit #: [id number] Loc: ER Orderi ng Provid er: Mohit Wasserman i, M.D. Accoun t #: [id number] Status : PRE ER Primar y [...] facili ty are submit gabbie to the [facility] Radiol ogy Data Regist ry (NRDR) Dose Index Regist ry (DIR) with the [place] rosalio Lobo e of Radiol ogy (ACR). RADIAT ION [...] error, please notify us immedi ately at [phone] and return the origin al report to us at the addres s above. Thank- you. INTERFACE [facility] [address] [facility] [place], [address] 02/29/2024 17:26:33 02/29/2002/29/2024 x-ray imagi ng repor t Patien t Name: Arley Norman Unit #: [id number] Loc: ER Orderi ng Provid er: Mohit Wasserman i, M.D. Accoun t #: [id number] Status : PRE ER Primar y [...] error, please notify us immedi hillly at [phone] and return the origin al report to us at the addres s above. Thank- you. INTERFACE [address] , [place], [address] 02/29/2024 17:29:34 03/01/20 24 03/01/2024 x-ray imagi ng repor t Patien t Name: Arley Norman Unit #: [id number] Loc: MS Jerman contreras Provid er: Bhargav Syed M.D. Accoun t #: [id number] Status : ADM IN Primar y Care Provid er: Young, Chris Date of Exam: Sex: F Admiss [...] ure report for comple te detail makayla Mullins,r=5 .92 mGy IMPRES DONNA: RADIAT ION DOSE DELIVE RED: 0.0 0.0 [...] error, please notify us immedi ately at [phone] and return the origin al report to us at the addres s above. Thank- you. INTERFACE [facility] [address] , [place], [address] 03/01/2024 17:03:53 03/01/2003/01/2024 x-ray imagi ng jose cruz rodríguez Name: Arlye Norman Unit #: [id number] Loc: MS Jerman contreras Provid er: Bhargav Syed M.D. Accoun t #: [id number] Status : ADM IN Primar y Care Provid er: Chris Gillespie [...] prior left total hip replac ement. IMPRES DONNA: Status post right total hip replac ement. [...] error, please notify us immedi ately at [phone] and return the origin al report to us at the addres s above. Thank- you. INTERFACE [facility] [address] [place], [address] 03/01/2024 17:38:58 03/02/2003/02/2024 vrad repor t Patien t Name: Arley Norman Unit #: [id number] Loc: ICU Orderi ng Provid er: Accoun t #: [id number] Status : ADM IN Primar y Care Provid er: Chris Gillespie [...] fat contai oly inferi or right spigel boni hernia . No associ ated inflam mation . IMPRES DONNA: Multif ocal gas in the subcut aneous tissue of the anteri or right hip/pr oximal right thigh in the settin g of statu s post recent hip repair . . No absces s or hemato ma. Dictat ed and Authen ticate d by: Nohemi nguyen MD. Orderi ng:Librado Melton MD Access ion#=[id number] Ordere d By: CC: ------ ------ ------ ------ ------ ------ ------ ------ ------ ------ ------ ------ ---- Dictat ed By: Report s vrad 322 Transc ribed By: Di Merge 322 This is privil eged, confid [...] at the addres s above. Thank- you. [email or web address] [facility] [address], [place], [address] 03/02/2024 11:48:46 03/02/2003/02/2024 CT imagi ng jose cruz t Noni rodríguez Name: Arley Norman Unit #: [id number] Loc: ICU Orderi ng Provid er: Richard Ortiz M.D. Accoun t #: [id number] Status : ADM IN Primar y Care Provid er: Chris Gillespie [...] right side fat only contai oly spigel boni hernia noted IMPRES DONNA: Postop gas in subcut aneous tissue s relate d to recent right hip prosth esis placem ent. No eviden ce of absces s nor hemato ma. RADIAT ION DOSE DELIVE RED: 298.91 mGy.cm Total DLP DATA REPOSI TORY: All CT scans at this facili ty are submit gabbie to the [facility] Radiol ogy Data Regist ry (NRDR) Dose Index Regist ry (DIR) with the Kristine Banks of Radiol ogy (ACR). RADIAT ION OPTIMI ZATION : All CT scans at this facili ty use at least one of these dose optimi zation techni ques: automa gabbie exposu re contro l; mA and/or kV adjust ment per patien t size (inclu rich target ed exams where dose is matche d to clinic al indica tion); or iterat reilly recons tructi on. 1024-0 012: Total DLP = 0.00 mGy-cm Ordere d By: Richard Ortiz M.D. CC: ------ ------ ------ ------ ------ ------ ------ ------ ------ ------ ------ ------ ---- Dictat ed By: Rober Stanton M.D. 826 Transc ribed By: Maximino MARTE,Tawanna garcia 826 This is privil eged, confid ential inform ation intend ed only for the provid er named. Any use or distri bution by any person other than this [facility] er is strict ly prohib ited. If you receiv e this report in error, please notify us immedi hillly at and return the origin al report to us at the addres s above. Thank- you. INTERFACE [facility] [address], [place], [address] 03/02/2024 08:31:44 03/03/2003/03/2024 US, echoc ardio gram No observ ation record ed. [email or web address] [facility] - Exercise Stress Test/Donte/Stre ss Echo Scheduling [facility] , [place], [address], 03/03/2024 16:00:12 03/06/2003/06/2024 x-ray imagi ng repor t Patien t Name: Arley Norman Unit #: [id number] Loc: MS Jerman contreras Provid er: Bhargav Syed M.D. Accoun t #: [id number] Status : ADM IN [facility] er: Chris Gillespie Date of Exam: Sex: F Admiss ion Date: : 1960 Age: 63 Exam(s ) XR HIP RT AP LAT ONLY EXAM: XR HIP RT AP LAT ONLY CLINIC AL HISTOR Y: f/u R [id number] after mobili zation . TECHNI QUE: 2D digita l imagin g was perfor med. COMPAR ASHLEY: X-rays of 2023. CT scan of 2023. FINDIN GS: Two views There is stable positi on alignm ent of the compon ents of the recent ly placed right hip prosth esis. No fractu re or loosen ing eviden t. There is no remain ing gas in the soft tissue s. IMPRES DONNA: Satisf actory appear ance DATA REPOSI TORY: RADIAT ION DOSE DELIVE RED: Ordere d By: Bhargav Syed M.D. CC: ------ ------ ------ ------ ------ ------ ------ ------ ------ ------ ------ ------ - Dictat ed By: Rober Stanton M.D. 1450 1450 Transc ribed By: Maximino MARTE,Tawanna garcia 1450 This is privil eged, confid ential inform [...] the addres s above. Thank- you. INTERFACE [facility] [address] , [place], [address] 03/06/2024 15:02:56 Result Notes None recorded. Problems Name Problem SNOMED Code Status Onset Date Resolution Date Notes Provider Name and Address Organization Details Recorded Time Anemia 004051108 Active 2023 Problem Code: D64.9; Problem Code Type: ICD-10; Farideh Massey RN [facility], 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 4080373115 33608 Active [address], [place], [address], [facility] 4 10:46:42 Bipolar disorder 32949335 Active 2012 Orlinlexx [facility] 4 18:49:12 Hyperlip idemia 72741153 Active [address], [facility] [address] [place] [address] 4 10:49:59 Diaphrag matic hernia 73106529 Active 2013 [place] [facility] 4 18:49:50 Shoulder joint pain 893488755 Completed 201403/31/2023 Problem Code: M25.519; Problem Code Type: ICD-10; [address], [facility] [address] [place] [address] 3 13:43:54 Acute sinusiti s 95178510 Completed 201506/26/2015 Problem Code: J01.90; Problem Code Type: ICD-10; [address], [facility] [address] [place] [address] 3 13:53:21 Acquired absence of cervix and uterus 360656923 Completed 201507/15/2023 Problem Code: Z90.710; Problem Code Type: ICD-10; Orlin Alicea [facility] 4 18:48:56 Pain in thoracic spine 442666853 Completed 201803/31/2023 Problem Code: M54.9; Problem Code Type: ICD-10; [address], [facility] [address] [place] [address] 3 13:44:02 Vitamin D deficien cy 73268599 Active 2019 [facility] 4 18:52:57 Generali zed anxiety disorder 73343335 Active 2019 Orlin [facility] 4 18:50:32 Cholelit hiasis without obstruct ion 60733180 Active 2020 Orlin [facility] 4 18:49:27 Insomnia 652994026 Active 2020 Orlin [facility] 4 18:51:51 Hernia of anterior abdomina l wall 287629414 Active 2021 [facility] 4 18:51:22 Polyneur opathy 10525420 Active 2022 [facility] 4 18:52:04 Pain of left hip joint 3072906677 61067 Completed 202203/31/2023 Problem Code: M25.552; Problem Code Type: ICD-10; [address], [place], [address], [facility] 3 13:44:40 Respirat ory crackles 18473569 Active 2022 [address], [place], [address], [facility] 3 14:48:31 Edema 728268503 Active 2022 Orlin [facility] 4 18:50:11 Proteinu maggi 56448442 Active 2022 [facility] 4 18:52:16 Senile osteopor osis 03276659 Active 2022 [address], [place], [address], [facility] 4 10:53:05 Blood in urine 56823438 Active 2022 Orlin Alicea [facility], [facility] 4 18:49:21 Tremor 53262919 Active 2019 facial movement s Orlin Alicea [facility], [facility] 4 18:52:51 [place] 513974538 Completed 202003/31/2023 06/09/19 23 - Comments only - Chris BEY - Reported as signific antly improved after completi ng PT. Problem Code: R27.9; Problem Code Type: ICD-10; [address], [place], [address], [facility] 3 13:45:29 Anemia 295309943 Completed 202007/03/2021 Problem Code: D64.9; Problem Code Type: ICD-10; Farideh Massey RN [facility], [facility] 4 10:22:14 Nausea and vomiting 54866711 Completed 202007/03/2021 Problem Code: R11.2; Problem Code Type: ICD-10; Not Available [facility] 3 04:28:59 Mixed bipolar I disorder in partial remissio n 19766200 Completed 201912/10/2022 Problem Code: F31.77; Problem Code Type: ICD-10; Not Available [facility] 3 04:29:00 Enterost ghassan malfunct ion 26853248 Completed 202202/03/2023 Problem Code: K94.13; Problem Code Type: ICD-10; Not Available [facility] 3 04:29:00 Gastroes ophageal reflux disease 488127087 Completed 200202/03/2023 Problem Code: 530.81; Problem Code Type: ICD-9; [address], [place], [address], [facility] 3 14:48:31 Pain of right shoulder joint 2153867953 2502380 Completed 201402/03/2023 Problem Code: M25.511; Problem Code Type: ICD-10; Not Available [facility] 3 04:29:00 Tobacco user 334562197 Completed 201102/03/2023 Not Available [facility] 3 04:29:01 Left heart failure 14007399 Completed 202212/10/2022 Problem Code: I50.1; Problem Code Type: ICD-10; Not Available [facility] 3 04:29:01 Hiatal hernia 36083721 Completed 201302/03/2023 Not Available [facility] 3 04:29:02 Melena 2378120 Completed 202007/03/2021 Problem Code: K92.1; Problem Code Type: ICD-10; Not Available [facility] 3 04:29:03 Left heart failure 99926869 Completed 202212/10/2022 Problem Code: I50.1; Problem Code Type: ICD-10; Not Available [facility] 3 04:29:03 Secondar y parkinso nism 088032090 Completed 202112/10/2022 Problem Code: G21.19; Problem Code Type: ICD-10; Not Available [facility] 3 04:29:05 Noninfla mmatory disorder of the vagina 80234154 Completed 202007/03/2021 Problem Code: N89.8; Problem Code Type: ICD-10; [address], [place], [address], [facility]. 3 12:50:12 Bypass gastroje junostom y Active [address], [place], [address], [facility]. 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 370678803 Completed 202203/31/[address], [place], [address], [facility] 3 13:52:25 Farrell' s esophagu s 521151927 Active [address], [place], [address], [facility] 3 14:48:31 Gastroes ophageal reflux disease 801201996 Active [address], [place], [address], [facility] 3 14:48:31 History of atrial flutter 293185435 Active [address], [place], [address], [facility] 4 10:50:21 History of cardiomy opathy 1664162417 67497 Active 2022 Stress induced [address], [place], [address], [facility] 4 10:48:26 Hearing loss 85995743 Active [address], [place], [address], [facility] 4 10:52:32 Hearing loss 12771027 Active 2022 MAIDA [address], [place], [address], [facility] 3 14:51:27 Cough 08916370 Completed 202207/15/2023 Orlin pantoja, [facility] 4 18:53:36 Hip pain 56456378 Active 2022 Farideh Massey RN null, [facility] 3 15:18:22 Prosthet ic arthropl asty of hip Active 2022 Farideh Massey RN null, [facility] 3 15:18:56 Strictur e of esophagu s 83487853 Active 2023 [address], [place], [address], [facility] 4 13:06:33 Acute upper respirat ory infectio n 90271100 Completed 202307/15/2023 Orlin Alicea [facility] 4 18:53:17 Atrial flutter 5862811 Active 2022 Orlin Alice[facility] 4 18:54:59 Low blood pressure 81387434 Active 2022 Orlin Alice[facility] 4 18:55:17 Aftercar e Completed 202207/15/2023 02/25/20 [...] Code: Z51.89; Problem Code Type: ICD-10; [facility] 4 18:54:42 Pneumoni tis caused by inhaled substanc e 952881241 Completed 202207/15/2023 Problem Code: J69.0; Problem Code Type: ICD-10; [facility] 18:54:15 Candidia sis of skin 88406179 Active [address], [address] 4 15:24:45 Hypoxia 528851490 Active [address], [address] 15:26:49 Muscle weakness 15761801 Active [address], [address] 15:33:20 Type 2 diabetes mellitus 53150166 Active [address], [address] 13:39:04 Aspirati on pneumoni a 817098738 Completed 202307/15/2023 Orlin [facility] 4 18:53:31 Total abdomina l hysterec yady Active [address], [address] 10:48:57 History of ketan es 253789325 Active 2020 Orlin [facility] 4 18:56:20 Pressure injury of buttock 398844333 Active [address], [facility] [address], [facility] 4 09:34:51 Candidia sis of vagina 33145298 Active [address], [facility] [address], [facility] 4 09:36:38 Pruritus of vagina 84344928 Active [address], [facility] [address], [facility] 4 09:48:28 History of pancreat itis 8596749981 9107 Active 2023 TYRON DRAPER MA null, [facility] 4 09:52:28 Gastrost ghassan feeding Active 2023 Farideh Massey RN null, [facility] 4 14:48:17 Gastrost ghassan Active 2023 Farideh Massey RN null, [facility] 4 14:55:33 Closed fracture of hip 458501904 Active 2023 RUBIOAMANDA VALDIVIA CMA null, [facility] 4 14:54:05 Problem Notes None recorded. Procedures Surgical History Date Name Laterality Status Provider Name and Address Organization Details Recorded Time 3 Most Recent Mammogram completed Prachi Blancas RN [facility] 04/23/2023 14:35:47 3 Most Recent Bone Density completed RUBIO VALDIVIA CMA [facility] 07/06/2023 11:40:24 2 Date of Last Colonoscopy completed RUBIO VALDIVIA CMA [facility] 07/06/2023 11:45:32 Imaging Results None recorded. Procedure Notes None recorded. Medical Equipment None Reported. Allergies Allergen ID Allergen Name Allergen Category Reaction Reaction Severity Criticality Documentation Date Start Date Code Code System Note Provider Name and Address Organization Details Recorded Time 84160 metformin hydrochlo ride medicatio n diarrhea moderate Not available 03/19/20232019 38249 3 RxNorm Diarr hea Not Available [facility] 3 16:31:03 38941 Demerol medicatio n vomiting mild Not available 03/19/20232005 16812 1 RxNorm [facility] [place] - [facility]. 4 18:45:52 Medications Name Sig Start Date [...] tablet by mouth every night 04/16 completed maintena nce, Not Available Not Available Not Available Lantus U-100 Insulin 100 unit/mL subcutane ous solution 10 units nightly 03/31 completed [facility] 10/2022 Not Available Not Available [...] Changed to 1 tab every evening per [facility] d/c 03/11/24 Not Available Not Available Not Available spironola ctone 25 mg tablet Take 1/2 tablet by mouth once a day 03/31 completed [facility] D/C 09/25/22 Not Available Not Available Not [...] as directed 09/29 completed Changed per [facility] d/c summary 07/19/21 Not Available [...] as needed For nausea 02/24 completed Per [facility] d/c summary 07/19/21 Not Available [...] 10 % topical cream Apply a thin sheet layer to 4 times a day as [...] AM and 1000mg at HS 04/14 completed [facility] D/C 09/25/22 Not Available Not Available Not [...] 6 mL three times daily 05/13 completed [facility] D/C 09/25/22 Not Available Not Available Not [...] by mouth once a day 03/31 completed [facility] D/C 09/25/22 Not Available Not Available Not [...] Organization Details Last Updated DateTime 154.94 cm 30.1 kg/m2 87086.6 2 g 96.5 [degF] 99 % 99 % 70 /min 122 mm[Hg] 76 mm[Hg] Prachi Blancas RN [facility] 10:19:56 Social History Question Answer Notes LastModified by Organizat ion Details LastModified Time Tobacco Smoking Status Former Smoker ESTHER YANG RN [facility], [facility] 05/13/2023 11:38:26 When Did You Quit Smoking? 1-5yearssin celastcigar ette Information not available 05/13/2023 Care Coordination Start Date: 09/08/2017 [email or web address] Information not available 03/20/2024 Date Care Plan Printed: 11/18/2023 Information not available 11/18/2023 Assigned Naturalist: Aggie Puga Information not available 11/18/2023 Is [facility] The Lead Naturalist? Yes Information not available 11/18/2023 Level Of [...] Barrier Yes Information not available 11/18/2023 Community Internal Control Consultant Yes Information not available 11/18/2023 Diabetes Education [...] cause of internal bleeding - ? aneurysm. [place] age 60s, HTN, hyperlipidemia Had late onset [...] mcg/0.3 mL 4 completed Prachi Blancas RN [facility], [place] - [facility] 03/29/2024 10:38:23 Influenza, split virus, trivalent, PF [address], [place], [address], [facility]. 03/31/2024 10:02:01 Td (adult), 2 Lf tetanus toxoid, preservative free, adsorbed 0 completed Not Available [facility] 03/19/2023 06:16:19 Tdap 9 completed Not Available [facility] 03/19/2023 06:16:20 Influenza, split virus, trivalent, preservative 5 completed Not Available [facility] 03/19/2023 06:16:20 Influenza, split virus, trivalent, preservative 6 completed Not Available [facility] 03/19/2023 06:16:20 Influenza, split virus, quadrivalent, PF 0 completed Not Available [facility] 03/19/2023 06:16:20 Influenza, split virus, quadrivalent, PF 0 completed Not Available [facility] 03/19/2023 06:16:20 Influenza, split virus, quadrivalent, PF 2 completed Not Available [facility] 03/19/2023 06:16:20 Influenza, split virus, quadrivalent, PF 1 completed Not Available [facility] 03/19/2023 06:16:20 Influenza, split virus, quadrivalent, preservative 7 completed Not Available [facility] 03/19/2023 06:16:20 zoster recombinant 2 completed Not Available [facility] 03/19/2023 06:16:20 zoster recombinant 2 completed Not Available [facility] 03/19/2023 06:16:20 COVID-19, mRNA, LNP-S, PF, 100 mcg/0.5mL dose or 50 mcg/0.25mL dose 1 completed Not Available [facility] 03/19/2023 06:16:21 COVID-19, mRNA, LNP-S, PF, 100 mcg/0.5mL dose or 50 mcg/0.25mL dose 1 completed Not Available [facility] 03/19/2023 06:16:21 COVID-19, mRNA, LNP-S, PF, 100 mcg/0.5mL dose or 50 mcg/0.25mL dose 2 completed Not Available [facility] 03/19/2023 06:16:21 COVID-19, mRNA, LNP-S, PF, 100 mcg/0.5mL dose or 50 mcg/0.25mL dose 1 completed Not Available [facility] 03/19/2023 06:16:21 Pneumococcal conjugate PCV20, polysaccharide UNF240 conjugate, adjuvant, PF 2 completed Not Available [facility] 03/19/2023 06:16:21 COVID-19, mRNA, LNP-S, bivalent, PF, 30 mcg/0.3 mL dose 2 completed Not Available [facility] 03/19/2023 06:16:21 pneumococcal polysaccharide PPV23 9 completed Not Available [facility] 03/19/2023 06:16:21 Influenza, split virus, quadrivalent, PF 3 completed Not Available [facility] 05/21/2023 05:31:34 COVID-19, mRNA, LNP-S, PF, daniela-sucrose, 30 mcg/0.3 mL 3 completed Not Available [facility] 05/21/2023 05:31:35 Past Encounters Encounter ID Performer Location Encounter Start Date Encounter Closed Date Diagnosis/Indication Diagnosis SNOMED-CT Code Diagnosis ICD10 Code [id number] MAIDA TOSCANO [address] [address] 03/29/2024 10:08:07 03/29/2024 11:00:38 Hip pain 19937810 M25.559 Hyperglyce contreras due to type 2 diabetes mellitus 4698748459 25458 E11.65 Active or passive immunization 786255803 Z23 Senile osteoporosis 1804 0001 M81.0 Goals [...] Member ID Camargo Member ID Guarantor Name 03/29/2024 1 [facility] (MEDICAID) Jennifer Irving [id number] Jennifer Irving Notes Date Note Type Note Provider Name and Address Organization Details Recorded Time 03/29/2024 text/html Jennifer recounts recent fall at [...] walking on different surfaces, such as grass. CHRIS GILLESPIE, MAIDA [address], [place], [address], [facility]. 03/31/2024 10:23:32 OBGyn Episode No OBEpisode recorded.
--- OUTSIDE RECORDS SUMMARY | 2024-04-19 22:52 | XMS_ITS | Encounter Summary ---
Author Organization [facility] Address [facility] [place] [address] Care Team Providers Care Mannequin Molder Name Role Phone Ana Gillespie VAUGHN Primary Care Provider [phone] Encounter Details Date Type Department Care Team (Late st Contact Info) Description 04/03/2024 Telephone Radiology at [place] [phone] Meg Vargas Social History Tobacco Use Types Packs/Day Years [...] 04/26/2024 8:30 AM EST Appointment [place] [address] Gavin Carrillo MD [facility] [place] [address] 06/05/2024 1:20 PM EST Office Visit Cardiology at [place] [phone] Milagros Hernandez MD [facility] [place] [address] Scheduled Procedures Name Priority Associated Diagnoses Date/Ti me EGD, UPPER GI ENDOSCOPY (WRV U 2.09) Peptic stricture of esophagus documented as of this encounter Visit Diagnoses Not on filedocumented in this encounter Care Teams Mannequin Molder Relationship Specialty Start Date End Date Ana Gillespie APRN [address] [place] [address] PCP - General Family Medicine 02/03/19 documented as of this encounter
--- OUTSIDE RECORDS SUMMARY | 2024-04-19 22:52 | XMS_ITS | Encounter Summary ---
Author Organization [facility] Address [facility] [place] [address] Care Team Providers Care Spa Manager/Esthetician Name Role Phone Ana Gillespie VAUGHN Primary Care Provider [phone] Encounter Details Date Type Department Care Team (Latest Contact Info) Description 12/07/2023 12:24 PM EDT - 12/07/2023 11:59 PM EDT Hospital Encounter [place] [phone] Hypoxemia Discharge Disposition: Home Social History Tobacco [...] meter kit. 1 each 0 12/14/2014 Insulin [place], Disposable, (BD INSULIN PEN NEEDLE UF MINI) [...] 04/26/2024 8:30 AM EST [place] [address] Gavin Carrillo MD [facility] [place] [address] 06/05/2024 1:20 PM EST Office Visit Cardiology at [address] [address] Milagros Hernandez MD [facility] [place] [address] Scheduled Procedures Name Priority Associated Diagnoses Date/Ti [...] PFT FEV1/FVC Pre-BD Z-Score -0.14 COMPAS PFT MMW69-99 Actual Pre-BD 1.66 % COMPAS PFT HBG14-14 Predicted 1.94 % COMPAS PFT DVB92-38 Pre-BD % of Predicted 86 % COMPAS PFT XBK54-18 Pre-BD Z-Score -0.41 COMPAS PFT DLCO Hb [...] Hypoxemia documented in this encounter Care Teams Spa Manager/Esthetician Relationship Specialty Start Date End Date Ana Gillespie APRN [address] [place] [address] PCP - General Family Medicine 02/03/19 documented as of this encounter
--- OUTSIDE RECORDS SUMMARY | 2024-04-19 22:52 | XMS_ITS | Encounter Summary ---
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 Milagros Hernandez with possible complex surgery pending, eval for risk stratification Geronimo Mojica MD [facility] [place] [address] Milagros Hernandez MD [facility] [place] [address] Referral ID Status Reason Start Date Expiration Date Visits Requested Visits Authorized [id number] Authorized Consult Only 12/20/2023 12/19/2024 1 1 Encounter Details Date Type Department Care Team (Late st Contact Info) Description 12/20/2023 Orders [place] [address] Deborah Gallo PA [facility] [place] [address] Esophageal stricture; Gastroesophageal reflux disease, unspecified whether [...] 04/26/2024 8:30 AM [place] [address] Gavin Carrillo MD [facility] INTERVENTION[place] [address] 06/05/2024 1:20 PM EST Office Visit Cardiology at [address] [phone] Milagros Hernandez MD [facility] [place] [address] Scheduled Procedures Name Priority Associated Diagnoses Date/Ti [...] esophagus documented in this encounter Care Teams Platinum And Palladium Kettle Tender Relationship Specialty Start Date End Date Ana Gillespie APRN [address] [place] [address] PCP - General Family Medicine 02/03/19 documented as of this encounter
--- OUTSIDE RECORDS SUMMARY | 2024-04-19 22:52 | XMS_ITS | Clinical Summary ---
Author Organization [facility] Address [facility] [place] [address] Care Team Providers Care Land Surveying Party Chief Name Role Phone Ana Gillespie VAUGHN Primary Care Provider [phone] Allergies Active Allergy Reactions Criticality Noted Date Comments Meperidine Hcl Nausea And Vomiting Low CIS - violently ill Metformin Other (See Comments) Low 09/23/2021 Severe diarrhea Medications Medication Sig Dispensed Refills Start Date End Date Status Insulin [place], Disposable, (BD INSULIN PEN NEEDLE UF MINI) [...] 6 units 12 mL 12 09/25/2022 Active MELATONIN ORAL Take 9 mg by [...] 12 03/04/2023 Active Miscellaneous Medical Supply KitIndications:Glo chiquis parkinsonism 1 Aluminum adjustable rolling walker 1 [...] Take 80 mg by mouth daily. Active sucralfate (Carafate) 1 gram tabletIndications: Peptic stricture of esophagus Take 1 tablet by mouth 4 times daily. 360 tablet 3 03/23/2024 Active Active Problems Problem Noted Date Diagnosed [...] Encounters Date Type Department Care Team Description 04/03/2024 Telephone Radiology at [address] Meg Vargas 04/02/2024 Notes [place] [address] Leon Morales DO 03/23/2024 Ref[place] [address] David Dejesus MD Peptic stricture of esophagus 03/20/2024 Telephone Gastroenterology at [place] [phone] 03/16/2024 Telephone Gastroenterology at [place] [phone] Chiquita James, RN 03/13/2024 Telephone [place] [address] Juice Maxwell, RN 03/09/2024 Telephone Cardiology [place] [phone] Milagros Hernandez MD 03/08/2024 Tele[place] [address] Nicole Guillory RN 03/07/2024 Tele[place] [address] Chiquis Jean RN 03/03/2024 11:49 AM EDT - 03/03/2024 11:59 PM EDT Hospital Encounter Mobile Echocardiography [place] [phone] Bandar Guerra MD Hypotension, unspecified hypotension type; HFrEF (heart failure with reduced ejection fraction) Discharge Disposition: Home 03/02/2024 Telephone Cardiology at [place] [phone] Nicole Guillory RN 03/02/2024 [place] [address] Milagros Hernandez MD 02/23/2024 Telephone [place] [address] Tenisha Fairchild, RD 02/23/2024 Telephone [place] [address] Tenisha Fairchild, RD 02/07/2024 7:43 AM EDT - 02/07/2024 11:59 PM EDT Hospital Encounter [place] [address] Rio Hill MD Problem with gastrostomy tube Discharge Disposition: Home 02/07/2024 Travel 02/05/2024 Orders Only Radiology at [place] [phone] Sonny Pearson, DO Problem with gastrostomy tube 01/19/2024 Telephone [place] [address] Chiquita James, RN from Last 3 Months Family History Medical [...] 04/26/2024 8:30 AM EST Appointment [place] [phone] Gavin Carrillo MD [facility] [address] INTERVENTION[place] [address] 06/05/2024 1:20 PM EST Office Visit Cardiology at [address] [phone] Milagros Hernandez MD [facility] [place] [address] Scheduled Procedures Name Priority Associated Diagnoses Date/Ti [...] 12/14/2015 12/13/2014 Breast Cancer screening 07/02/2016 07/02/2014 RSV Vaccine (1 - Risk 60-74 years 1-dose series) 2020 DM Hemoglobin A1c 6 month 02/14/2023 08/15/2022, 10/2014 DM Creatinine yearly 09/26/2023 09/25/2022, 09/24/2022, 09/23/2022, Additional history exists Influenza (Flu) vaccine (1 o f 1 - Influenza standard series) 01/09/2024 Colonoscopy 03/01/2025 03/01/2020, 02/08, 03/20/2016, Additional history exists Colorectal Cancer Screening 03/01/2025 Sigmoidoscopy (10 year) with FIT yearly 03/01/2030 03/01/2020, 03/01/2020, 03/20/2016, Additional history exists Lipid Screening Discontinued 08/29/2022 Covid-19 Vaccine Completed 03/29/2024, , 02/24/2022, Additional history exists Medical Devices Implanted Type Area First Calender Worker Device Identifier Shelf Expiration Date Model / Serial / Lot Other Implanted:Qty: 3 Other Left: Hip Description:three screws lef t hip Procedures Procedure Name Priority Date/Time Associated Diagnosis Comments ECHO COMPLETE Routine 03/03/2024 12:52 PM EDT Hypotension, unspecified hypotension type HFrEF (heart failure with reduced ejection fraction) IR G-TUBE CHECK/CHANGE Routine 02/07/2024 9:14 AM EDT Problem with gastrostomy tube BASIC METABOLIC PANEL Routine 09/25/2022 3:11 AM [...] Recently Relevant to Health Maintenance Results * ECHO COMPLETE (03/03/2024 12:52 PM EDT) Anatomical Region Laterality Modality Other 03/03/2024 9:49 AM EDT Narrative 03/03/2024 1:08 PM EDT 1 [place] [address] ? Echocardiogram Report Name: ISHAN LEONG ? Study Date: 03/03/2024 09:49 AMBP: 116/55 mmHg : 1960 ? Height: 155 cm ? Account: [id number] Age: 63 yrs ? Weight: 76 kg Gender: Female ?BSA: 1.8 m2 Ordering Physician: BANDAR GUERRA Referring Physician: BANDAR GUERRA Performed By: MARGAUX Reason For Study: HFrEF Exam Location: [facility]. Interpretation Summary -Left ventricle is of [...] LV systolic function has significantly improved. Procedure Complete-53383. Suboptimal quality. This study is limited because [...] Ao V2 VTI: 24.5 cm Ao Max Jacky: 145.0 cm/sec Ao valve max: 8.4 mmHg Ao valve mean: 4.0 mmHg MV E max jacky: 68.3 cm/sec MV A max jacky: 99.0 cm/sec MV E/A: 0.69 MV dec time: 0.26 sec MV mean P.4 mmHg Med Peak E' Jacky: 10.2 cm/sec E/e' (med): 6.7 KAREL(I,D): 3.2 cm2 Dimensionless index Aov: 1.0 TR max jacky: 266.6 cm/sec I ?WMSI = 1.00 ? % Normal = 100 ?Segments ??Size X - Cannot ?? 1 - Normal ?? 2 - ? 3 - Akinetic 4 - ?1-2 ? small Interpret ? Hypokinetic ?Dyskinetic ?? 3-5 ? moderate 5 - ? 6-14 ?large Aneurysmal ?15-16 ?? diffuse Procedure Note Patric Calderon MD - 03/03/2024 1 [place] [address] Echocardiogram Report Name: ISHAN LEONG Study Date:03/03/2024 09:49 AMBP: 116/55 mmHg : 1960 Height: 155 cm Account: [id number] Age: 63 yrs Weight: 76 kg Gender: Female BSA: 1.8 m2 Ordering Physician: BANDAR GUERRA Referring Physician: BANDAR GUERRA Performed By: MARGAUX Reason For Study: HFrEF Exam Location: [facility]. Interpretation Summary -Left ventricle is of [...] 08/19/2022, LV systolic function hassignificantly improved. Procedure Complete-98480. Suboptimal quality. This study is limited because [...] Ao V2 VTI: 24.5 cm Ao Max Jacky: 145.0 cm/sec Ao valve max: 8.4 mmHg Ao valve mean: 4.0 mmHg MV E max jacky: 68.3 cm/sec MV A max jacky: 99.0 cm/sec MV E/A: 0.69 MV dec time: 0.26 sec MV mean P.4 mmHg Med Peak E' Jacky: 10.2 cm/sec E/e' (med): 6.7 KAREL(I,D): 3.2 cm2 Dimensionless index Aov: 1.0 TR max jacky: 266.6 cm/sec I WMSI = 1.00 % Normal = 100 SegmentsSize X - Cannot 1 - Normal 2 - 3 - Akinetic 4 - 1-2small Interpret Hypokinetic Dyskinetic 3-5moderate 5 - 6-14large Aneurysmal 15-16diffuse Bandar Guerra MD ECHO ORDERABLES * IR G-Tube Check/Change (02/07/2024 9:14 AM [...] None. Technique: The patient was positioned supine. Talent Development Specialist imaging was performed with mixed air/contrast injection [...] of a EnFit 16 F gastrostomy tube. partition assembly machine operator: Hang Cooper PA-C Attending of record: Rio Hill MD 02/07/2024 I, Dr. Hill, was not present for this procedure. Rio Hill MD IMG IR ORDERABLES * (ABNORMAL) Basic Metabolic Panel (non-fasting) (09/25/2022 3:11 AM EDT) Glucose 187 65 - 199 mg/dL [facility] Comment:Diabetes: >=200 mg/d L plus symptoms Blood Urea Nitrogen 32(H) 8 - 18 mg/dL [facility] Creatinine 0.62(L) 0.70 - 1.20 mg/dL [facility] Sodium 142 135 - 145 mmol/L [facility] Potassium 4.6 3.5 - 5.0 mmol/L [facility] Comment: Please note: ??Patients with WBC >100,000 may have falsely elevated Potassium levels. ??For accurate Potassium quantification in these patients send serum separator tube (gold top) for subsequent determinations. ??Contact the Clinical Chemistry Laboratory if there are any questions. Chloride 103 98 - 107 mmol/L [facility] Carbon Dioxide 31 22 - 31 mmol/L [facility] Anion Gap 8 5 - 15 mmol/L [facility] Calcium 9.8 8.5 - 10.5 mg/dL [facility] Est Glomerular Filtration Rate 101 >=60 mL/min/1. 73 m?? [facility] Comment: This patient's estimated GFR was [...] In Lab Geronimo Pascal MD CHEMISTRY ORDERABLES Performing Organization Address City/State/[facility] Co de Phone Number [facility] [place] [address] * Lipid Panel (Reflex Direct LDL) (08/29/2022 4:48 AM EDT) Cholesterol, Total 110 mg/dL [facility] Comment: Lower Risk: <200 mg/dL Average Risk: 200-239 mg/dL Higher Risk: >ng=426 mg/dL Triglyceride 127 mg/dL [facility] Comment: Average Risk/Lower Risk: <150 mg/dL Borderline High Risk: 150-199 mg/dL High Risk: 200-499 mg/dL Very High Risk: >oq=356 mg/dL HDL Cholesterol 34 mg/dL [facility] Comment: Males: ?? Higher Risk: <40 mg/dL Females: ?? Higher Risk: <50 mg/dL LDL Cholesterol 51 mg/dL [facility] Comment: Lowest Risk: <100 mg/dL Lower Risk: 100-129 mg/dL Borderline High Risk: 130-159 mg/dL High Risk: 160-189 mg/dL Very High Risk: >gt=404 mg/dL Cholesterol/HDL Ratio 3.2 ratio [facility] Lipid Interpretation See Note [facility] Comment: Lipid management should be guided by a patient? s ASCVD risk, goals and preferences. ACC/AHA Guidelines recommend high intensity statin if clinical ASCVD or LDL greater than or equal to 190 mg/dL. http://Skaffl.com/KQH-KPR-Qrqirchbl Adults aged 40-75 with LDL 70-189 mg/dL should have their 10 year ASCVD risk estimated with the ACC/AHA ASCVD risk sexual abuse counsellor http://tools.acc.org/NRDJJ-Yomw-Cjaqjhdna/ Statin should be discussed if risk greater [...] In Lab Milagros Hernandez MD CHEMISTRY ORDERABLES [facility] [place] [address] * (ABNORMAL) Hemoglobin A1c (08/15/2022 3:05 AM EDT) Hemoglobin A1c 6.2(H) 4.3 - 5.6 % [facility] Comment: Reference Range: 4.3 - 5.6% [...] Mellitus, Diabetes Care 2013; 36: Suppl. 1, M16-47 Estimated Average Glucose 130 mg/dL [facility] Comment: eAG equivalents for HbA1c percentages: [...] into estimated average glucose values. ??Diabetes Care 2008:31(8):0652-1156. Blood 08/15/2022 3:05 AM EDT 08/15/2022 3:16 AM EDT Narrative Resulting Agency Comment Spec In Lab Carlos Terry MD CHEMISTRY ORDERABLES [facility] [place] [address] * COLONOSCOPY (03/01/2020 7:22 AM EDT) COLONOSCOPY [facility] Endoscopy Procedure Date: 03/01/2020 7:22 AM ? Patient Name: Ishan Leong ? Date of : 1960 ? Age: 59 ? Order #: [id number] ? Instrument Name: [id number] ? Procedure: ? Colonoscopy Indications: ? Screening [...] PROVATION 03/01/2020 7:22 AM EDT Ana Gillespie ADVISORY INTERNSHIP GENERAL SURGICAL ORD ERABLES Performing Organization Address City/[facility] Co de Phone Number PROVATION * Microalbumin, urine, random (12/13/2014 12:33 PM EDT) Creatinine, Urine 284 mg/dL CE RNER MILLENNIUM Albumin, Urine 258.4 mg/L CERNE R MILLENNIUM Albumin / Creatinin Ratio, Urine 91 mcg/mg Cr [facility]ERNER MILLENNIUM Comment: Reference Range* Random collection (mcg/mg creatinine) Normal ?<30 Microalbuminuria ?? 30 - 300 Clinical Albuminuria ?? >300 *[place] Diabetes Association. Diabetic Nephropathy. Diabetes Care 1997;(Suppl 1):S24-S27 Exercise within 24 hour, infection, fever, CHF, marked hyperglycemia, and marked hypertension may elevate urinary albumin excretion over baseline values. Urine specimen (specimen) 12/13/2014 12:33 PM EDT 12/13/2014 12:39 PM EDT Narrative Resulting Agency Comment Spec In Lab Bandar Agosto MD URINE ORDERABLES Performing Organization Address City/[facility] Co de Phone Number CERNER MILLENNIUM * Mammography Screen Eduard 2D Bilateral (07/02/2014 [...] Documents on File Type Date Recorded Patient Cleaning Staff Supervisor Expl anation Advance Directives and Dominic g Will 09/11/2022 11:52 AM 09/11/2022 * [...] Status decision made by: Patient Care Teams Land Surveying Party Chief Relationship Specialty Start Date End Date Ana Gillespie APRN [address] [place] [address] PCP - General Family Medicine 02/03/19
--- OUTSIDE RECORDS SUMMARY | 2024-04-19 22:52 | XMS_ITS | Encounter Summary ---
Author Organization [facility] Address [facility] [place] [address] Care Team Providers Care Full Time Babysitter Name Role Phone Ana Gillespie GAS DESULFURIZER Primary Care Provider [phone] Encounter Details Date Type Department Care Team (Late Contact Info) Description 03/13/2024 Telephone [place] [address] Juice Maxwell RN Social History [...] Telephone Encounter - Juice Maxwell RN - 03/13/2024 10:44 AM EST TC from pt's , Joseph. Gasca requesting a call back from NANCY Bruce Pulper Tender because he has specific questionsand requests related to Jennifer's tube feedings. Call back: [phone] Forwarded documented in this encounter Plan of Treatment Upcoming Encounters Date Type Department Care Team (Late Contact Info) Description 04/26/2024 8:30 AM [place] [address] Gavin Carrillo MD [facility] [place] [address] 06/05/2024 1:20 PM EST Office Visit Cardiology at [address] [address] Milagros Hernandez MD [facility] [place] [address] Scheduled Procedures Name Priority Associated Diagnoses Date/Ti me EGD, UPPER GI ENDOSCOPY (WRV U 2.09) Peptic stricture of esophagus documented as of this encounter Visit Diagnoses Not on filedocumented in this encounter Care Teams Full Time Babysitter Relationship Specialty Start Date End Date Ana Gillespie APRN [address] [place] [address] PCP - General Family Medicine 02/03/19 documented as of this encounter
--- OUTSIDE RECORDS SUMMARY | 2024-04-19 22:52 | XMS_ITS | Encounter Summary ---
Author Organization [facility] Address [facility] [place] [address] Care Team Providers Care Peer Tutor Name Role Phone Ana Gillespie APRN Primary Care Provider [phone] Encounter Details Date Type Department Care Team (Latest Contact Info) Description 11/17/2023 8:40 AM EDT Office Visit Cardiology at [address] [phone] Milagros Hernandez MD [facility] [place] [address] Stress-induced cardiomyopathy Social History Tobacco Use Types [...] the original note were not included. [facility] [place] [address] CARDIOLOGY OUTPATIENT NOTE PRIMARY CARE PROVIDER: Ana [...] glucose meter kit. 1 each 0 Insulin [place], Disposable, (BD INSULIN PEN NEEDLE UF MINI) 31 x 3/16 Needle 1 Device by [facility] [...] stricture dilations and unfortunately was admitted to [facility] at the end of February shortly after [...] in April, she had another admission to [facility] in June 2023 for COPD which was complicated by a Type II NSTEMI. The oil process stillman personal finance instructor here was contacted and recommended a TTE, [...] There is no evidence that providers at [facility] reached back out to Cardiology here so [...] Sinus bradycardia, low voltage, otherwise normal TTE ([facility], 11/20/22): TTE (08/19/22): Interpretation Summary -Left ventricular [...] to obtain her echo from June at [facility] which I do not have the results [...] most recent echocardiogram results from June at [facility] - Patient to reach out once surgical [...] next visit. Milagros Hernandez MD Cardiovascular Medicine [facility] 11/17/2023 documented in this encounter Plan of Treatment Upcoming Encounters Date Type Department Care Team (Late st Contact Info) Description 04/26/2024 8:30 AM [place] [address] Gavin Carrillo MD [facility] [place] [address] 06/05/2024 1:20 PM EST Office Visit Cardiology at [address] [address] Milagros Hernandez MD [facility] [place] [address] Scheduled Procedures Name Priority Associated Diagnoses Date/Ti me EGD, UPPER GI ENDOSCOPY (WRV U 2.09) Peptic stricture of esophagus documented as of this encounter Visit Diagnoses Diagnosis Stress-induced cardiomyopathy Takotsubo syndrome documented in this encounter Care Teams Peer Tutor Relationship Specialty Start Date End Date Ana Gillespie APRN [address] [place] [address] PCP - General Family Medicine 02/03/19 documented as of this encounter
--- OUTSIDE RECORDS SUMMARY | 2024-04-19 22:52 | XMS_ITS | Encounter Summary ---
Author Organization [facility] Address [facility] [place] [address] Care Team Providers Care Lens Polisher Name Role Phone Ana Gillespie VAUGHN Primary Care Provider [phone] Encounter Details Date Type Department Care Team (Late st Contact Info) Description 03/09/2024 [place] [phone] [facility] [address] Social History Tobacco Use Types Packs/Day Years [...] encounter Miscellaneous Notes * Telephone Encounter - Milagros Hernandez MD - 03/09/2024 2:21 PM EDT I called Dr. Denney, Hospitalist at [facility] this afternoon at his request to discuss Ms. Irving's cardiac medication management. She is apparently improving and he is wondering about reintroducing her Entresto. She is already back on metoprolol. Although it could be absorbed faster it would notbe faster or higher dose than taking tartrate bid. I advised that I would reintroduce her Entresto when it was felt her blood pressure could tolerate it and noted that you can cut the 24-26 pill in half if necessary. He expects her to discharge in the next 1-2 days. documented in this encounter Plan of Treatment Upcoming Encounters Date Type Department Care Team (Late st Contact Info) Description 04/26/2024 8:30 AM EST [place] [phone] Gavin Carrillo MD [facility] [place] [address] 06/05/2024 1:20 PM EST Office Visit Cardiology at [address] [phone] Milagros Hernandez MD [facility] [place] [address] Scheduled Procedures Name Priority Associated Diagnoses Date/Ti me EGD, UPPER GI ENDOSCOPY (WRV U 2.09) Peptic stricture of esophagus documented as of this encounter Visit Diagnoses Not on filedocumented in this encounter Care Teams Lens Polisher Relationship Specialty Start Date End Date Ana Gillespie APRN [address] [place] [address] PCP - General Family Medicine 02/03/19 documented as of this encounter
--- OUTSIDE RECORDS SUMMARY | 2024-04-19 22:52 | XMS_ITS | Encounter Summary ---
Author Organization [facility] Address [facility] [place] [address] Care Team Providers Care Collar Pointer Name Role Phone Ana Gillespie VAUGHN Primary Care Provider [phone] Encounter Details Date Type Department Care Team (Late st Contact Info) Description 03/02/2024 [place] [phone] Milagros Hernandez MD [facility] [place] [address] Social History Tobacco Use Types Packs/Day Years [...] Telephone Encounter - Milagros Hernandez MD - 03/02/2024 3:19 PM EDT I called [facility] ICU today and spoke with Dr. Giron at Rogelio's (Jennifer's ) request as it seems hewas concerned Jennifer was having heart issues because her blood pressure has been low after recent surgery. In talking with Dr. Giron it appears that Jennifer had some blood loss and residual effects from anesthesia and had an overly robust response to attempted resumption of her Entresto and metoprolol. She was transiently on norepinephrine but is now off it and doing better. He anticipates continued improvement. I let him know that if there is any concern going forward, I remain available for consultation. documented in this encounter Plan of Treatment Upcoming Encounters Date Type Department Care Team (Late st Contact Info) Description 04/26/2024 8:30 AM [place] [phone] Gavin Carrillo MD [facility] [place] [address] 06/05/2024 1:20 PM EST Office Visit Cardiology at [address] [phone] Milagros Hernandez MD [facility] [place] [address] Scheduled Procedures Name Priority Associated Diagnoses Date/Ti me EGD, UPPER GI ENDOSCOPY (WRV U 2.09) Peptic stricture of esophagus documented as of this encounter Visit Diagnoses Not on filedocumented in this encounter Care Teams Collar Pointer Relationship Specialty Start Date End Date Ana Gillespie APRN [address] [place] [address] PCP - General Family Medicine 02/03/19 documented as of this encounter
--- OUTSIDE RECORDS SUMMARY | 2024-04-19 22:52 | XMS_ITS | Encounter Summary ---
Author Organization [facility] Address [facility] [place] [address] Care Team Providers Care Baked And Graphite Inspector Name Role Phone Ana Gillespie VAUGHN Primary Care Provider [phone] Reason for Visit * Reason Comments Establish Care Dysphagia Encounter Details Date Type Department Care Team (Late st Contact Info) Description 12/07/2023 2:00 PM EDT Office [place] [address] Richard Diallo MD [facility] [place] [address] History of chronic pancreatitis; Esophageal stricture Social [...] Outpatient Consultation Note MD Alla Kirk PA-C [place] [address] FAX: Date of Consultation: 12/07/2023 This consultation has been requested by PCP: Ana Gillespie APRN Referring Physician: Ana Gillespie APRN [address] [place] [id number] Purpose for Consultation: esophageal stricture HPI: Jenniferanne [...] is a former smoker with an approximate 80-hjhn-zmtc history, quit 4 years ago. She adamantly denies alcohol use or history of alcohol use and denies recreational drug use despite the documentation throughout her chart. 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 She states she is active during the [...] IR G-Tube Check/Change 11/27/2022 Hang Cooper, [facility] INTERVENTIONL RAD IR G-TUBE CHECK/CHANGE 03/10/2023 IR G-Tube Check/Change 03/10/2023 Richard Chambers DO [facility] INTERVENTIONL RAD IR G-TUBE CHECK/CHANGE 04/06/2023 IR G-Tube Check/Change 04/06/2023 Gavin Carrillo MD [facility] INTERVENTIONL RAD IR G-TUBE CHECK/CHANGE 05/09/2023 IR G-Tube Check/Change [facility] INTERVENTIONL RAD IR G-TUBE CHECK/CHANGE 07/09/2023 IR G-Tube Check/Change [facility] INTERVENTIONL RAD IR G-TUBE CHECK/CHANGE 09/17/2023 IR G-Tube Check/Change 09/17/2023 Hang Cooper PA [facility] INTERVENTIONL RAD IR G-TUBE CHECK/CHANGE 10/14/2023 IR G-Tube Check/Change 10/14/2023 Moustapha Hart MD [facility] INTERVENTIONL RAD IR G-TUBE PLACEMENT 09/11/2022 IR G-Tube Placement 09/11/2022 Moustapha Hart MD [facility] INTERVENTIONL RAD IR SUTURE RELEASE 09/25/2022 IR Suture Release 09/25/2022 Yoselin Ghosh PA [facility] INTERVENTIONL RAD PERCUTANEOUS GASTROSTOMY N/A 09/11/2022 PERCUTANEOUS GASTROSTOMY performed by Aiden Flores MD at [facility] CATY PRO COLONOSCOPY, BIOPSY N/A 03/20/2016 COLONOSCOPY FLEXIBLE, WITH BX performed by David Dejesus MD at [facility] ENDOSCOPY PRO COLONOSCOPY, DIAGNOSTIC N/A 03/01/2020 COLONOSCOPY, DIAGNOSTIC performed by David Dejesus MD at [facility] ENDOSCOPY PRO DILATE ESOPHAGUS N/A 11/05/2023 EGD-DILATATION BY SOUND OR BOUGIE, SINGLE OR MULTIPLE PASSES (WRVU 1.28) performed by David Dejesus MD at [facility] ENDOSCOPY PRO ENDOSCOPIC US EXAM, ESOPH N/A 03/31/2022 UPPER EUS- ENDOSCOPIC ULTRASOUND performed by David Dejesus MD at [facility] ENDOSCOPY PRO UP GI ENDOSCOPY, BALL DIL, 30MM N/A 12/24/2022 EGD,WITH DILATION ESOPHAGUS WITH BALLOON,< 30 MM (WRVU 2.67) performed by David Dejesus MDat [facility] ENDOSCOPY PRO UP GI ENDOSCOPY, BALL DIL, 30MM N/A 01/12/2023 EGD,WITH DILATION ESOPHAGUS WITH BALLOON,< 30 MM (WRVU 2.67) performed by David Dejesus [facility] ENDOSCOPY PRO UP GI ENDOSCOPY, BALL DIL, 30MM N/A 02/26/2023 EGD,WITH DILATION ESOPHAGUS WITH BALLOON,< 30 MM (WRVU 2.67) performed by David Dejesus [facility] ENDOSCOPY PRO UP GI ENDOSCOPY, BALL DIL, 30MM N/A 03/16/2023 EGD,WITH DILATION ESOPHAGUS WITH BALLOON,< 30 MM (WRVU 2.67) performed by David Dejesus [facility] ENDOSCOPY PRO UP GI ENDOSCOPY, BALL DIL, 30MM N/A 03/30/2023 EGD,WITH DILATION ESOPHAGUS WITH BALLOON,< 30 MM (WRVU 2.67) performed by David Dejesus [facility] ENDOSCOPY PRO UP GI ENDOSCOPY, BALL DIL, 30MM N/A 04/30/2023 EGD,WITH DILATION ESOPHAGUS WITH BALLOON,< 30 MM (WRVU 2.67) performed by David Dejesus [facility] ENDOSCOPY PRO UP GI ENDOSCOPY, BALL DIL, 30MM N/A 06/01/2023 EGD,WITH DILATION ESOPHAGUS WITH BALLOON,< 30 MM (WRVU 2.67) performed by David Dejesus [facility] ENDOSCOPY PRO UP GI ENDOSCOPY, BALL DIL, 30MM N/A 08/02/2023 EGD,WITH DILATION ESOPHAGUS WITH BALLOON,< 30 MM (WRVU 2.67) performed by David Dejesus [facility] ENDOSCOPY PRO UP GI ENDOSCOPY, DILATN W GUIDE N/A 10/07/2023 EGD-ESOPHOGEAL DILATATION OVER GUIDE WIRE (WRVU 2.91) performed by David Dejesus MD at [facility] ENDOSCOPY PRO UP GI ENDOSCOPY, DILATN W GUIDE N/A 11/05/2023 EGD-ESOPHOGEAL DILATATION OVER GUIDE WIRE (WRVU 2.91) performed by David Dejesus MD at [facility] ENDOSCOPY PRO UPPER GI ENDOSCOPY, BIOPSY N/A 04/03/2014 UPPER GASTROINTESTINAL ENDOSCOPY,WITH BIOPSY SINGLE OR MULTIPLE performed by David Dejesus [facility] ENDOSCOPY PRO UPPER GI ENDOSCOPY, BIOPSY N/A 03/20/2016 EGD WITH BIOPSY performed by David Dejesus MD at [facility] ENDOSCOPY PRO UPPER GI ENDOSCOPY, BIOPSY N/A 11/22/2018 EGD WITH BIOPSY (WRVU 2.49) performed by David Dejesus MD at [facility] ENDOSCOPY PRO UPPER GI ENDOSCOPY, BIOPSY N/A 03/01/2020 UPPER GASTROINTESTINAL ENDOSCOPY,WITH BIOPSY SINGLE OR MULTIPLE (WRVU 2.49) performed by David Dejesus MD at [facility] ENDOSCOPY PRO UPPER GI ENDOSCOPY, BIOPSY N/A 09/23/2021 EGD WITH BIOPSY (WRVU 2.49) performed by David Dejesus MD at [facility] ENDOSCOPY PRO UPPER GI ENDOSCOPY, BIOPSY N/A 03/31/2022 EGD WITH BIOPSY (WRVU 2.49) performed by David Dejesus MD at [facility] ENDOSCOPY PRO UPPER GI ENDOSCOPY, BIOPSY N/A 07/03/2022 EGD WITH BIOPSY (WRVU 2.49) performed by David Dejesus MD at [facility] ENDOSCOPY PRO UPPER GI ENDOSCOPY, DIAGNOSTIC N/A 04/03/2014 EGD, UPPER GI ENDOSCOPY performed by David Dejesus MD at [facility] ENDOSCOPY PRO UPPER GI ENDOSCOPY, DIAGNOSTIC N/A 03/01/2020 EGD, UPPER GI ENDOSCOPY performed by David Dejesus MD at [facility] ENDOSCOPY PRO UPPER GI ENDOSCOPY, DIAGNOSTIC N/A 09/09/2022 EGD, UPPER GI ENDOSCOPY (WRVU 2.09) performed by Ayo Russ MD at [facility] MAIN OR Medications: Outpatient Medications Marked as [...] x 3/16 Needle 1 Device by [facility] [...] questions Alla Bowden PA-C 12/07/2023 Thoracic Surgery [facility] I have seen the patient and reviewed [...] 04/26/2024 8:30 AM [place] [address] Gavin Carrillo MD [facility] [place] [address] 06/05/2024 1:20 PM EST Office Visit Cardiology at [place] [phone] Milagros Hernandez MD [facility] [place] [address] Scheduled Orders Name Type Priority Associated Diagnoses [...] esophagus documented in this encounter Care Teams Baked And Graphite Inspector Relationship Specialty Start Date End Date Ana Gillespie APRN [address] [place] [address] PCP - General Family Medicine 02/03/19 documented as of this encounter
--- OUTSIDE RECORDS SUMMARY | 2024-04-19 22:52 | XMS_ITS | Encounter Summary ---
Author Organization [facility] Address [facility] [place] [address] Care Team Providers Care Caretaker Resort Name Role Phone Jose Miguel Ana MENDES Primary Care Provider [phone] Encounter Details Date Type Department Care Team [...] 04/26/2024 8:30 AM [place] [phone] Gavin Carrillo MD [facility] [place]ION[place] [address] 06/05/2024 1:20 PM EST Office Visit Cardiology at [address] [phone] Milagros Hernandez MD [facility] [place] [address] Scheduled Procedures Name Priority Associated Diagnoses Date/Ti me EGD, UPPER GI ENDOSCOPY (WRV U 2.09) Peptic stricture of esophagus documented as of this encounter Visit Diagnoses Not on filedocumented in this encounter Care Teams Caretaker Resort Relationship Specialty Start Date End Date Ana Gillespie APRN [address] [place] [address] PCP - General Family Medicine 02/03/19 documented as of this encounter
--- OUTSIDE RECORDS SUMMARY | 2024-04-19 22:52 | XMS_ITS | Encounter Summary ---
Author Organization [facility] Address [facility] [place] [address] Care Team Providers Care Residential Interior Designer Name Role Phone Ana Gillespie APRN Primary Care Provider [phone] Encounter Details Date Type Department Care Team (Late st Contact Info) Description 02/23/2024 Telephone [place] [phone] [facility] [place] [address] Social History Tobacco Use Types Packs/Day Years [...] 04/26/2024 8:30 AM EST Appointment [place] [address] Gavin Carrillo MD [facility] [place] [address] 06/05/2024 1:20 PM EST Office Visit Cardiology at [address] [phone] Milagros Hernandez MD [facility] [place] [address] Scheduled Procedures Name Priority Associated Diagnoses Date/Ti me EGD, UPPER GI ENDOSCOPY (WRV U 2.09) Peptic stricture of esophagus documented as of this encounter Visit Diagnoses Not on filedocumented in this encounter Care Teams Residential Interior Designer Relationship Specialty Start Date End Date Ana Gillespie APRN [address] [place] [address] PCP - General Family Medicine 02/03/19 documented as of this encounter
--- OUTSIDE RECORDS SUMMARY | 2024-04-19 22:52 | XMS_ITS | Encounter Summary ---
Author Organization [facility] [place] [address] Care Team Providers Care Psych Specialist Name Role Phone Ana Gillespie APRN Primary Care Provider [phone] Encounter Details Date Type Department Care Team (Late st Contact Info) Description 11/05/2023 Orders [place] [phone] David Dejesus MD [facility] [place] [address] Peptic stricture of esophagus Social History Tobacco [...] 04/26/2024 8:30 AM [place] [phone] Gavin Carrillo MD [facility] [place] [address] 06/05/2024 1:20 PM EST Office Visit Cardiology at [address] [phone] Milagros Hernandez MD [facility] [place] [address] Scheduled Orders Name Type Priority Associated Diagnoses [...] esophagus documented in this encounter Care Teams Psych Specialist Relationship Specialty Start Date End Date Ana Gillespie APRN [address] [place] [address] PCP - General Family Medicine 02/03/19 documented as of this encounter
--- OUTSIDE RECORDS SUMMARY | 2024-04-19 22:52 | XMS_ITS | Encounter Summary ---
Author Organization Replaced By [facility] [place] [address] Care Team Providers Care Figure Model Name Role Phone Ana Gillespie VAUGHN Primary Care Provider [phone] Encounter Details Date Type Department Care Team (Late st Contact Info) Description 03/02/2024 Telephone Cardiology at [address] [phone] Nicole Guillory RN Social History Tobacco Use [...] Telephone Encounter - Nicole Guillory RN - 03/02/2024 5:05 PM EDT Question posed earlier today- to scheduling staff member Jennifer Gasca's , called to cancel her upcoming appointment for surgical clearance. She had her hip surgery done at [facility] this week. He is concerned as she is now in the ICU with heart issues post surgery. He is asking for Dr. Hernandez to call and consult with either her doctor or her nurse there as he is concerned about her cardiac care with them. Dr. Giron or Nurse Astudillo in ICU. Thank you. Response from Dr. Hernandez- Could we please call Rogelio back and let him know I spoke with Dr. Giron. It seems like probably a combination of things contributed to her low blood pressure after surgery but she is getting better now and things should smooth out. I did speak with Mr Irving- he had discussed Dr. Hernandez's response with Dr. Dr. Giron. He understands and will call if he has any more concerns. He appreciated the f/u call and the call by Dr. Hernandez to Dr. Giron. No other concerns at this time. Nicole Guillory RN, BSN Ambulatory Cardiology Department documented in this encounter Plan of Treatment Upcoming Encounters Date Type Department Care Team (Late st Contact Info) Description 04/26/2024 8:30 AM EST Appointment [place] [phone] Gavin Carrillo MD [facility] [place] [address] 06/05/2024 1:20 PM EST Office Visit Cardiology at [address] [phone] Milagros Hernandez MD [facility] [place] [address] Scheduled Procedures Name Priority Associated Diagnoses Date/Ti me EGD, UPPER GI ENDOSCOPY (WRV U 2.09) Peptic stricture of esophagus documented as of this encounter Visit Diagnoses Not on filedocumented in this encounter Care Teams Figure Model Relationship Specialty Start Date End Date Ana Gillespie APRN [address] [place] [address] PCP - General Family Medicine 02/03/19 documented as of this encounter
--- OUTSIDE RECORDS SUMMARY | 2024-04-19 22:52 | XMS_ITS | Encounter Summary ---
Author Organization [facility] Address [facility] [place] [address] Care Team Providers Care Livestock Farmer Name Role Phone Ana Gillespie VAUGHN Primary Care Provider [phone] Encounter Details Date Type Department Care Team (Late st Contact Info) Description 12/13/2023 Telephone Endocrinology at [place] [phone] Kiko Ashley Social History Tobacco Use Types [...] 04/26/2024 8:30 AM EST Appointment Radiology at [place] [phone] Gavin Carrillo MD [facility] [place] [address] 06/05/2024 1:20 PM EST Office Visit Cardiology at [address] [phone] Milagros Hernandez MD [facility] [place] [address] Scheduled Procedures Name Priority Associated Diagnoses Date/Ti me EGD, UPPER GI ENDOSCOPY (WRV U 2.09) Peptic stricture of esophagus documented as of this encounter Visit Diagnoses Not on filedocumented in this encounter Care Teams Livestock Farmer Relationship Specialty Start Date End Date Ana Gillespie APRN [address] [place] [address] PCP - General Family Medicine 02/03/19 documented as of this encounter
--- OUTSIDE RECORDS SUMMARY | 2024-04-19 22:53 | XMS_ITS | Encounter Summary ---
Author Organization [facility] Address [facility] [place] [address] Care Team Providers Care Environment Artist Name Role Phone Ana Gillespie APRN Primary Care Provider Encounter Details Date Type Department Care Team (Late st Contact Info) Description 08/02/2023 11:03 AM EDT Anesthesia [place] [phone] Maddie Hughes MD [facility] [place] [address] Anesthesia Record Procedure Summary Procedure Name Responsible [...] for questions and acknowledgement of understanding claire METAL BONDING ASSEMBLER 1137 Extubation/LMA Out 1139 an stop data [...] Procedure Summary Date: 08/02/23 Room / Location: [facility] ENDO 2 / [facility] ENDOSCOPY Anesthesia Start: 1103 Anesthesia Stop: 1148 Procedure: EGD,WITH DILATION ESOPHAGUS WITH BALLOON,< 30 MM (WRVU 2.67) Diagnosis: 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 Patient Location: PACU/[facility] Level of Consciousness: Awake and Alert Pain [...] IR G-Tube Check/Change 11/27/2022 Hang Cooper, ROSLYN [facility] INTERVENTIONL RAD ??? IR G-TUBE CHECK/CHANGE 03/10/2023 IR G-Tube Check/Change 03/10/2023 Geronimo Chambers, DO [facility] INTERVENTIONL RAD ??? IR G-TUBE CHECK/CHANGE 04/06/2023 IR G-Tube Check/Change 04/06/2023 Gavin Carrillo MD [facility] INTERVENTIONL RAD ??? IR G-TUBE CHECK/CHANGE 05/09/2023 IR G-Tube Check/Change [facility] INTERVENTIONL RAD ??? IR G-TUBE CHECK/CHANGE 07/09/2023 IR G-Tube Check/Change [facility] INTERVENTIONL RAD ??? IR G-TUBE PLACEMENT 09/11/2022 IR G-Tube Placement 09/11/2022 Moustapha Hart MD [facility] INTERVENTIONL RAD ??? IR SUTURE RELEASE 09/25/2022 IR Suture Release 09/25/2022 Yoselin Ghosh PA [facility] INTERVENTIONL RAD ??? PERCUTANEOUS GASTROSTOMY N/A 09/11/2022 PERCUTANEOUS GASTROSTOMY performed by Aiden Flores MD at [facility] CATY ??? PRO COLONOSCOPY, BIOPSY N/A 03/20/2016 COLONOSCOPY FLEXIBLE, WITH BX performed by David Dejesus MD at [facility] ENDOSCOPY ??? PRO COLONOSCOPY, DIAGNOSTIC N/A 03/01/2020 COLONOSCOPY, DIAGNOSTIC performed by David Dejesus MD at [facility] ENDOSCOPY ??? PRO ENDOSCOPIC US EXAM, ESOPH N/A 03/31/2022 UPPER EUS- ENDOSCOPIC ULTRASOUND performed by David Dejesus MD at [facility] ENDOSCOPY ??? PRO UP GI ENDOSCOPY, BALL DIL, 30MM N/A 12/24/2022 EGD,WITH DILATION ESOPHAGUS WITH BALLOON,< 30 MM (WRVU 2.67) performed by David Dejesus [facility] ENDOSCOPY ??? PRO UP GI ENDOSCOPY, BALL DIL, 30MM N/A 01/12/2023 EGD,WITH DILATION ESOPHAGUS WITH BALLOON,< 30 MM (WRVU 2.67) performed by David Dejesus [facility] ENDOSCOPY ??? PRO UP GI ENDOSCOPY, BALL DIL, 30MM N/A 02/26/2023 EGD,WITH DILATION ESOPHAGUS WITH BALLOON,< 30 MM (WRVU 2.67) performed by David Dejesus [facility] ENDOSCOPY ??? PRO UP GI ENDOSCOPY, BALL DIL, 30MM N/A 03/16/2023 EGD,WITH DILATION ESOPHAGUS WITH BALLOON,< 30 MM (WRVU 2.67) performed by David Dejesus [facility] ENDOSCOPY ??? PRO UP GI ENDOSCOPY, BALL DIL, 30MM N/A 03/30/2023 EGD,WITH DILATION ESOPHAGUS WITH BALLOON,< 30 MM (WRVU 2.67) performed by David Dejesus [facility] ENDOSCOPY ??? PRO UP GI ENDOSCOPY, BALL DIL, 30MM N/A 04/30/2023 EGD,WITH DILATION ESOPHAGUS WITH BALLOON,< 30 MM (WRVU 2.67) performed by David Dejesus [facility] ENDOSCOPY ??? PRO UP GI ENDOSCOPY, BALL DIL, 30MM N/A 06/01/2023 EGD,WITH DILATION ESOPHAGUS WITH BALLOON,< 30 MM (WRVU 2.67) performed by David Dejesus [facility] ENDOSCOPY ??? PRO UPPER GI ENDOSCOPY, BIOPSY N/A 04/03/2014 UPPER GASTROINTESTINAL ENDOSCOPY,WITH BIOPSY SINGLE OR MULTIPLE [facility] ??? PRO UPPER GI ENDOSCOPY, BIOPSY N/A 03/20/2016 EGD WITH BIOPSY performed by David Dejesus MD at [facility] ENDOSCOPY ??? PRO UPPER GI ENDOSCOPY, BIOPSY N/A 11/22/2018 EGD WITH BIOPSY (WRVU 2.49) performed by David Dejesus MD at [facility] ENDOSCOPY ??? PRO UPPER GI ENDOSCOPY, BIOPSY N/A 03/01/2020 UPPER GASTROINTESTINAL ENDOSCOPY,WITH BIOPSY SINGLE OR MULTIPLE (WRVU 2.49) performed by David Dejesus MD at [facility] ENDOSCOPY ??? PRO UPPER GI ENDOSCOPY, BIOPSY N/A 09/23/2021 EGD WITH BIOPSY (WRVU 2.49) performed by David Dejesus MD at [facility] ENDOSCOPY ??? PRO UPPER GI ENDOSCOPY, BIOPSY N/A 03/31/2022 EGD WITH BIOPSY (WRVU 2.49) performed by David Dejesus MD at [facility] ENDOSCOPY ??? PRO UPPER GI ENDOSCOPY, BIOPSY N/A 07/03/2022 EGD WITH BIOPSY (WRVU 2.49) performed by David Dejesus MD at [facility] ENDOSCOPY ??? PRO UPPER GI ENDOSCOPY, DIAGNOSTIC N/A 04/03/2014 EGD, UPPER GI ENDOSCOPY performed by David Dejesus MD at [facility] ENDOSCOPY ??? PRO UPPER GI ENDOSCOPY, DIAGNOSTIC N/A 03/01/2020 EGD, UPPER GI ENDOSCOPY performed by David Dejeuss MD at [facility] ENDOSCOPY ??? PRO UPPER GI ENDOSCOPY, DIAGNOSTIC N/A 09/09/2022 EGD, UPPER GI ENDOSCOPY (WRVU 2.09) performed by Ayo Russ MD at [facility] MAIN OR Social History Tobacco Use [...] with patient and spouse. Plan discussed with METAL BONDING ASSEMBLER and attending. Anesthesia Screening documented in this encounter Plan of Treatment Upcoming Encounters Date Type Department Care Team (Late st Contact Info) Description 04/26/2024 8:30 AM [place] [phone] Gavin Carrillo MD [facility] [place] [address] 06/05/2024 1:20 PM EST Office Visit Cardiology at [address] [phone] Milagros Hernandez MD [facility] [place] [address] Scheduled Procedures Name Priority Associated Diagnoses Date/Ti [...] mg documented in this encounter Care Teams Environment Artist Relationship Specialty Start Date End Date Ana Gillespie APRN [address] [place] [address] PCP - General Family Medicine 02/03/19 documented as of this encounter
--- OUTSIDE RECORDS SUMMARY | 2024-04-19 22:53 | XMS_ITS | Encounter Summary ---
Author Organization [facility] Address [facility] [place] [address] Care Team Providers Care Gold Charmer Name Role Phone Ana Gillespie VAUGHN Primary Care Provider [phone] Encounter Details Date Type Department Care Team (Late st Contact Info) Description 07/22/2023 Telephone Pulmonology at [place] [phone] Niru Mary Social History Tobacco Use Types [...] 04/26/2024 8:30 AM EST Appointment Radiology at [place] [phone] Gavin Carrillo MD [facility] [place] [address] 06/05/2024 1:20 PM EST Office Visit Cardiology at [address] [phone] Milagros Hernandez MD [facility] [place] [address] Scheduled Procedures Name Priority Associated Diagnoses Date/Ti me EGD, UPPER GI ENDOSCOPY (WRV U 2.09) Peptic stricture of esophagus documented as of this encounter Visit Diagnoses Not on filedocumented in this encounter Care Teams Gold Charmer Relationship Specialty Start Date End Date Ana Gillespie APRN [address] [place] [address] PCP - General Family Medicine 02/03/19 documented as of this encounter
--- OUTSIDE RECORDS SUMMARY | 2024-04-19 22:53 | XMS_ITS | Encounter Summary ---
Author Organization [facility] Address [facility] [place] [address] Care Team Providers Care Home Companion Name Role Phone Ana Gillespie VAUGHN Primary Care Provider [phone] Encounter Details Date Type Department Care Team (Late st Contact Info) Description 09/20/2023 Telephone [place] [address] Juice Maxwell RN Social History [...] placed for pt failed while visiting in [place]. Pt is currently at an Urgent Care in [place] to manage situation. Rogelio is calling [facility] to hopefully schedule apt for pt this coming . Forwarded. documented in this encounter Plan of Treatment Upcoming Encounters Date Type Department Care Team (Late st Contact Info) Description 04/26/2024 8:30 AM [place] [phone] Gavin Carrillo MD [facility] INTERVENTIONAL [place] [address] 06/05/2024 1:20 PM EST Office Visit Cardiology at [address] [phone] Milagros Hernandez MD [facility] [place] [address] Scheduled Procedures Name Priority Associated Diagnoses Date/Ti me EGD, UPPER GI ENDOSCOPY (WRV U 2.09) Peptic stricture of esophagus documented as of this encounter Visit Diagnoses Not on filedocumented in this encounter Care Teams Home Companion Relationship Specialty Start Date End Date Ana Gillespie APRN [address] [place] [address] PCP - General Family Medicine 02/03/19 documented as of this encounter
--- OUTSIDE RECORDS SUMMARY | 2024-04-19 22:53 | XMS_ITS | Encounter Summary ---
[place] [address] Care Team Providers Care Shop Firer/Fireman Name Role Phone Ana Gillespie VAUGHN Primary Care Provider [phone] Reason for Referral * Diagnostic Test (Routine) - Closed Specialty Diagnoses / Procedures Referred By Esperanza rodríguez Referred To Contact Radiology Diagnoses Problem with gastrostomy tube Procedures IR Site Check In Recovery Room Fannie Conde PA [facility] [place] [address] [facility] [address] Referral ID Status Reason Start Date Expiration Date V isits Requested Visits Authorized [id number] Closed Specialty Service Requested 09/17/2023 03/19/2025 1 1 Reason for Visit * Diagnostic Test (Routine) - Closed Specialty Diagnoses / Procedures Referred By Esperanza rodríguez Referred To Contact Radiology Diagnoses Problem with gastrostomy tube Procedures IR Site Check In Recovery Room Fannie Conde PA [facility] [place] [address] [facility] [place] [address] Referral ID Status Reason Start Date Expiration Date V isits Requested Visits Authorized [id number] Closed Specialty Service Requested 09/17/2023 03/19/2025 1 1 Encounter Details Date Type Department Care Team (Latest Contact Info) Description 09/17/2023 11:00 AM EDT - 09/17/2023 11:54 AM EDT Hospital Encounter [place] [phone] Geronimo Chambers, [facility] [place] [address] Problem with gastrostomy tube Discharge Disposition: Home [...] 180 tablet 3 10/20/2021 Blood Sugar Diagnostic (MobileSnackTOUCH ULTRA TEST) StripIndications:Typ e 2 diabetes mellitus, [...] meter kit. 1 each 0 12/14/2014 Insulin [place], Disposable, (BD INSULIN PEN NEEDLE UF MINI) 31 x 3/16 NeedleIndications:Di abetes mellitus type 2, uncontrolled 1 Device by [facility].(Non-Drug; Combo Route) route 3 times daily as needed. 100 each 11 12/13/2014 sucralfate (Carafate) 1 gram tablet Take 1 tablet by mouth 4 times daily. 360 tablet 3 10/22/2022 03/23/2024 documented as of this encounter Plan of Treatment Upcoming Encounters Date Type Department Care Team (Late st Contact Info) Description 04/26/2024 8:30 AM EST Appointment [place] [phone] Gavin Carrillo MD [facility] DR [place] [address] 06/05/2024 1:20 PM EST Office Visit Cardiology at [address] [phone] Milagros Hernandez MD [facility] [place] [place] [address] Scheduled Procedures Name Priority Associated Diagnoses Date/Ti [...] done. Geronimo Chambers DO IMG IR ORDERABLES CASSIUS De Anda * IR G-Tube Check/Change (09/17/2023 12:51 PM [...] external disk positioned at 4 cm marker. sludge filtration operator: Hang Cooper PA-C Attending of record: Geronimo Chambers DO. I was not present. ?? 09/17/2023 Geronimo Chambers DO IMG IR ORDERABLES documented in this encounter Visit Diagnoses Diagnosis Problem with gastrostomy tube documented in this encounter Care Teams Shop Firer/Fireman Relationship Specialty Start Date End Date Ana Gillespie APRN [address] [place] [address] PCP - General Family Medicine 02/03/19 documented as of this encounter
--- OUTSIDE RECORDS SUMMARY | 2024-04-19 22:53 | XMS_ITS | Encounter Summary ---
Author Organization [facility] Address [facility] [place] [address] Care Team Providers Care Janitor And Cleaner Name Role Phone Ana Gillespie VAUGHN Primary Care Provider [phone] Encounter Details Date Type Department Care Team (Late st Contact Info) Description 11/05/2023 8:30 AM EDT - 11/05/2023 9:00 AM EDT [place] [address] David Dejesus MD [facility] [place] [address] EGD-DILATATION BY SOUND OR BOUGIE, SINGLE OR [...] better as expected. Wednesday-Wednesday Same Day Endo [phone] Otherwise contact [phone] and ask to speak to the [facility] information clerk Follow-up care is a fam part of [...] 180 tablet 3 10/20/2021 Blood Sugar Diagnostic (MiniBrakeTOUCH ULTRA TEST) StripIndications:Typ e 2 diabetes mellitus, [...] meter kit. 1 each 0 12/14/2014 Insulin [place], Disposable, (BD INSULIN PEN NEEDLE UF MINI) [...] escorted out of department via wheelchair with /team otr truck driver. documented in this encounter H&P [...] glucose meter kit. 1 each 0 Insulin [place], Disposable, (BD INSULIN PEN NEEDLE UF MINI) [...] 04/26/2024 8:30 AM [place] [phone] Gavin Carrillo MD [facility] [place] [address] 06/05/2024 1:20 PM EST Office Visit Cardiology at [address] [phone] Milagros Hernandez MD [facility] [place] [address] Scheduled Procedures Name Priority Associated Diagnoses Date/Ti me EGD, UPPER GI ENDOSCOPY (WRV U 2.09) Peptic stricture of esophagus documented as of this encounter Procedures Procedure Name Priority Date/Time Associated Diagnosis Comments Up Gi Endoscopy, Dilatn W Guide (71252) 11/05/2023 8:34 AM EDT Peptic stricture of esophagus Dilate Esophagus (72545) 11/05/2023 8:34 AM EDT Peptic stricture of esophagus POCT GLUCOSE Routine 11/05/2023 7:50 AM EDT documented in this encounter Results * POCT Glucose (11/05/2023 7:50 AM EDT) Glucose, POC 86 65 - 199 mg/dL [facility] Comment: Supplemental ranges: <140 mg/dL before meals <180 mg/dL all other times of the day Blood 11/05/2023 7:50 AM EDT 11/05/2023 7:50 AM EDT David Dejesus MD POINT OF CARE TEST ORDERABLES [facility] [place] [place] [address] documented in this encounter Visit Diagnoses Diagnosis [...] ider: Mary Peace RN)0835 (Paused - Provider: nAnie Alfonso CRNA - Comment: Switch to gravity)0836 (Restarted - Provider: Annie Alfonso CRNA)0900 (Anesthesia Volume Adjustment - Provider: Annie Alfonso CRNA) documented in this encounter Care Teams Janitor And Cleaner Relationship Specialty Start Date End Date Aan Gillespie APRN [address] [place] [address] PCP - General Family Medicine 02/03/19 documented as of this encounter
--- OUTSIDE RECORDS SUMMARY | 2024-04-19 22:53 | XMS_ITS | Encounter Summary ---
Author Organization [facility] Address [facility] Marly petersen [place] [id number] Care Team Providers Care Medical Receptionist Biller Name Role Phone Ana Gillespie APRN Primary Care Provider [phone] Encounter Details Date Type Department Care Team [...] 04/26/2024 8:30 AM EST Appointment Radiology at [place] [phone] Gavin Carrillo MD [facility] [place] [address] 06/05/2024 1:20 PM EST Office Visit Cardiology at [address] [place] [address] [phone] Milagros Hernandez MD [facility] [place] [address] Scheduled Procedures Name Priority Associated Diagnoses Date/Ti me EGD, UPPER GI ENDOSCOPY (WRV U 2.09) Peptic stricture of esophagus documented as of this encounter Visit Diagnoses Not on filedocumented in this encounter Care Teams Medical Receptionist Biller Relationship Specialty Start Date End Date Ana Gillespie APRN [address] [place] [address] PCP - General Family Medicine 02/03/19 documented as of this encounter
--- OUTSIDE RECORDS SUMMARY | 2024-04-19 22:53 | XMS_ITS | Encounter Summary ---
Author Organization [facility] [place] [address] Care Team Providers Care Premium Card Cancellation Clerk Name Role Phone Ana Gillespie GLOBE CLEANER Primary Care Provider [phone] Encounter Details Date Type Department Care Team (Late st Contact Info) Description 08/11/2023 Telephone Gastroenterology at [facility] [place] [address] Parris Maravilla Social History Tobacco Use Types [...] - 08/11/2023 12:09 PM EDT Jennifer Irving [phone] Diagnosis/Indication: shedule one month - peptic stricture [...] your procedure. Who will likely be your jinriksha driver for the procedure? *Please Verify the [...] 04/26/2024 8:30 AM [place] [address] Gavin Carrillo MD [facility] [address] [place] [address] 06/05/2024 1:20 PM EST Office Visit Cardiology at [address] [phone] Milagros Hernandez MD [facility] [place] [address] Scheduled Procedures Name Priority Associated Diagnoses Date/Ti me EGD, UPPER GI ENDOSCOPY (WRV U 2.09) Peptic stricture of esophagus documented as of this encounter Visit Diagnoses Not on filedocumented in this encounter Care Teams Premium Card Cancellation Clerk Relationship Specialty Start Date End Date Ana Gillespie APRN [address] [place] [address] PCP - General Family Medicine 02/03/19 documented as of this encounter
--- OUTSIDE RECORDS SUMMARY | 2024-04-19 22:53 | XMS_ITS | Encounter Summary ---
Author Organization [facility] [place] [address] Care Team Providers Care Bacteriologist Medical Name Role Phone Ana Gillespie APRN Primary Care Provider [phone] Encounter Details Date Type Department Care Team (Late st Contact Info) Description 10/25/2023 Orders [place] [phone] David Dejesus MD [facility] [place] [address] Peptic stricture of esophagus Social History Tobacco [...] 04/26/2024 8:30 AM EST [place] [phone] Gavin Carrillo MD [facility] [place] [address] 06/05/2024 1:20 PM EST Office Visit Cardiology at [address] [phone] Milagros Hernandez MD [facility] [place] [address] Scheduled Orders Name Type Priority Associated Diagnoses [...] esophagus documented in this encounter Care Teams Bacteriologist Medical Relationship Specialty Start Date End Date Ana Gillespie APRN [address] [place] [address] PCP - General Family Medicine 02/03/19 documented as of this encounter
--- OUTSIDE RECORDS SUMMARY | 2024-04-19 22:53 | XMS_ITS | Encounter Summary ---
Author Organization [facility] [place] [address] Care Team Providers Care Wrapper Layer Name Role Phone Ana Gillespie VAUGHN Primary Care Provider [phone] Encounter Details Date Type Department Care Team (Late st Contact Info) Description 09/02/2023 [place] [phone] Chiquita James, RN Social History Tobacco Use [...] 04/26/2024 8:30 AM [place] [phone] Gavin Carrillo MD [facility] [address] INTERVENTION[place] [address] 06/05/2024 1:20 PM EST Office Visit Cardiology at [address] [address] Milagros Hernandez MD [facility] [place] [address] Scheduled Procedures Name Priority Associated Diagnoses Date/Ti me EGD, UPPER GI ENDOSCOPY (WRV U 2.09) Peptic stricture of esophagus documented as of this encounter Visit Diagnoses Not on filedocumented in this encounter Care Teams Wrapper Layer Relationship Specialty Start Date End Date Ana Gillespie APRN [address] [place] [address] PCP - General Family Medicine 02/03/19 documented as of this encounter
--- OUTSIDE RECORDS SUMMARY | 2024-04-19 22:53 | XMS_ITS | Encounter Summary ---
[facility] Organization [facility] Address [facility] [place] [address] Care Team Providers Care Mandolin Repair Person Name Role Phone Ana Gillespie APRN Primary Care Provider [phone] Encounter Details Date Type Department Care Team (Late st Contact Info) Description 11/05/2023 8:36 AM EDT Anesthesia [place] [phone] Daryl Carmona MD [facility] [place] [address] Anesthesia Record Procedure Summary Procedure Name Responsible [...] by Sergey Jordan RN PIV 11/05/23; 0745; nmpl-iyy-wejjkh catheter system; 22 gauge, 1 in length; [...] Procedure Summary Date: 11/05/23 Room / Location: [facility] 2 / [facility] Anesthesia Start: 36 Anesthesia Stop: 909 Procedures: EGD-DILATATION BY SOUND OR BOUGIE, SINGLE OR MULTIPLE PASSES (WRVU 1.28) (Trunk) EGD-ESOPHOGEAL DILATATION OVER GUIDE WIRE (WRVU 2.91) Diagnosis: Peptic stricture of esophagus (petic stricture - follow-up dilation in 2-3 weeks) Surgeons: David Dejesus MD Responsible Provider: Daryl Carmona MD Anesthesia Type: general ASA Status: 2 All Anesthesia Providers: Anesthesiologist: Daryl Carmona MD REAL TIME OPERATOR: Annie Alfonso CRNA Vitals Value Taken Time BP 125/64 11/05/23 0920 Temp Pulse Resp 16 11/05/23 0902 SpO2 97 % 11/05/23 0940 Pain Level 0 11/05/23 0902 Vitals shown include unfiled device data. Patient Location: PACU/[facility] Level of Consciousness: Conscious but Sleepy [...] y.o. female. Procedure(s): E[facility], [facility] Patient Active Problem List [...] IR G-Tube Check/Change 11/27/2022 Hang Cooper PA [facility] INTERVENTIONL RAD ??? IR G-TUBE CHECK/CHANGE 03/10/2023 IR G-Tube Check/Change 03/10/2023 Geronimo Chambers, MH INTERVENTIONL RAD ??? IR G-TUBE CHECK/CHANGE 04/06/2023 IR G-Tube Check/Change 04/06/2023 Gavin Carrillo MD [facility] INTERVENTIONL RAD ??? IR G-TUBE CHECK/CHANGE 05/09/2023 IR G-Tube Check/Change [facility] INTERVENT[facility] RAD ??? IR G-TUBE CHECK/CHANGE 07/09/2023 IR G-Tube Check/Change [facility] INTERVENTION[facility] RAD ??? IR G-TUBE CHECK/CHANGE 09/17/2023 IR G-Tube Check/Change 09/17/2023 Hang Cooper, ROSLYN [facility] INTERVENTIONL RAD ??? IR G-TUBE CHECK/CHANGE 10/14/2023 IR G-Tube Check/Change 10/14/2023 Moustapha Hart MD [facility] INTERVENTIONL RAD ??? IR G-TUBE PLACEMENT 09/11/2022 IR G-Tube Placement 09/11/2022 Moustapha Hart MD [facility] INTERVENTIONL RAD ??? IR SUTURE RELEASE 09/25/2022 IR Suture Release 09/25/2022 Yoselin Ghosh PA [facility] INTERVENTIONL RAD ??? PERCUTANEOUS GASTROSTOMY [...] Center ENDOSCOPY ??? PRO UP GI ENDOSCOPY, DILATN W GUIDE N/A 10/07/2023 EGD-ESOPHOGEAL DILATATION OVER GUIDE WIRE (WRVU 2.91) performed by [facility] Dejesus MD at [facility] [...] EGD, UPPER GI ENDOSCOPY performed by David Deejsus MD at [facility] ENDOSCOPY ??? PRO [...] there has been no significant change. Planning [facility] Region - Other Informed Consent: Anesthetic plan and risks discussed with patient. Use of blood products discussed with patient who consented to blood products. Plan discussed with REAL TIME OPERATOR. Anesthesia Screening documented in this encounter Plan of Treatment Upcoming Encounters Date Type Department Care Team (Late st Contact Info) Description 04/26/2024 8:30 AM [place] [phone] Gavin Carrillo MD [facility] [place] [address] 06/05/2024 1:20 PM EST Office Visit Cardiology at [address] [phone] Milagros Hernandez MD [facility] [place] [address] Scheduled Procedures Name Priority Associated Diagnoses Date/Ti [...] mg documented in this encounter Care Teams Mandolin Repair Person Relationship Specialty Start Date End Date Ana Gillespie APRN [address] [place] [address] PCP - General Family Medicine 02/03/19 documented as of this encounter
--- OUTSIDE RECORDS SUMMARY | 2024-04-19 22:53 | XMS_ITS | Encounter Summary ---
[place] [address] Care Team Providers Care Jack Machine Operator Name Role Phone Ana Gillespie APRN Primary Care Provider [phone] Encounter Details Date Type Department Care Team (Late st Contact Info) Description 10/12/2023 [place] [phone] Niru Mary Social History Tobacco Use Types [...] - 10/12/2023 2:45 PM EDT Copied from [facility] #[id number]. Topic: Specialty Dept CRMs - Generic Call >> Aug 20, 2023 8:14 AM Crispin Reeves wrote: Specialist: Bang Relationship (if other than patient-full name): Spouse, Campos Irving Reason for Call: Campos canceled 08/20/23 PFT and FUV, due to illness. Campos declined having this casualty underwriter reschedule. Please call Campos to coordinate rescheduling [id number] appointments with Campos. documented in this encounter Plan of Treatment Upcoming Encounters Date Type Department Care Team (Late st Contact Info) Description 04/26/2024 8:30 AM [place] [address] Gavin Carrillo MD [facility] [place] [address] 06/05/2024 1:20 PM EST Office Visit Cardiology at [address] [phone] Milagros Hernandez MD [facility] [place] [address] Scheduled Procedures Name Priority Associated Diagnoses Date/Ti me EGD, UPPER GI ENDOSCOPY (WRV U 2.09) Peptic stricture of esophagus documented as of this encounter Visit Diagnoses Not on filedocumented in this encounter Care Teams Jack Machine Operator Relationship Specialty Start Date End Date Ana Gillespie APRN [address] [place] [address] PCP - General Family Medicine 02/03/19 documented as of this encounter
--- OUTSIDE RECORDS SUMMARY | 2024-04-19 22:53 | XMS_ITS | Encounter Summary ---
Author Organization [facility] [place] [address] Care Team Providers Care Slots Manager Name Role Phone Ana Gillespie REGIONAL FLATBED TRUCK DRIVER Primary Care Provider Encounter Details Date Type Department Care Team (Late st Contact Info) Description 09/02/2023 Telephone [place] [phone] Parris Maravilla Social History Tobacco Use Types [...] returned, it can be handled by: Endo Business Development Consultant please park to me documented in this encounter Plan of Treatment Upcoming Encounters Date Type Department Care Team (Late st Contact Info) Description 04/26/2024 8:30 AM [place] [phone] Gavin Carrillo MD [facility] DR [place] [address] 06/05/2024 1:20 PM EST Office Visit Cardiology at [address] [phone] Milagros Hernandez MD [facility] [place] [address] Scheduled Procedures Name Priority Associated Diagnoses Date/Ti me EGD, UPPER GI ENDOSCOPY (WRV U 2.09) Peptic stricture of esophagus documented as of this encounter Visit Diagnoses Not on filedocumented in this encounter Care Teams Slots Manager Relationship Specialty Start Date End Date Ana Gillespie APRN [address] [place] [address] PCP - General Family Medicine 02/03/19 documented as of this encounter
--- OUTSIDE RECORDS SUMMARY | 2024-04-19 22:53 | XMS_ITS | Encounter Summary ---
Author Organization [facility] Address [facility] [place] [address] Care Team Providers Care Motor Assembler Name Role Phone Ana Gillespie VAUGHN Primary Care Provider [phone] Encounter Details Date Type Department Care Team (Latest Contact Info) Description 08/02/2023 8:59 AM EDT - 08/02/2023 12:45 PM EDT Hospital En[place] [phone] David Dejesus MD [facility] [place] [address] Discharge Disposition: Home Social History Tobacco Use [...] the day after the procedure, use an bmwe-sct-punhzej spray to numb your throat. Sucking on [...] occurs, please contact your Doctor. Please call [phone] before 8pm Mon-Fri with problems, questions or concerns. If you call after 8pm or on weekends, call the Hospital at [phone] and ask to speak to the Damper Worker cushion mat maker and the bath mix operator will contact that person for you. When should you call for help? Call [phone] anytime you think you may need emergency [...] any problems. Where can you learn more? [facility] View your After Visit Summary and more online at [email or web address] If you would like to provide feedback about your hospital experience, please call the Office of Patient and Family Relations at . If you have received this After Visit Summary in error, please immediately return it in person to the department, or notify the [facility] Privacy Office by calling toll free at between the hours of 8AM and 5PM to arrange for our retrieval of the documents at no cost to you. Content Version: 12.2 ?? [id number] [employer]. Care instructions adapted under license by [facility]. If you have questions about a medical condition or this instruction, always ask your healthcare professional. [employer] disclaims any warranty or liability for your [...] the day after the procedure, use an phvf-wkx-xospsql spray to numb your throat. Sucking on [...] occurs, please contact your Doctor. Please call [phone] before 8pm Mon-Fri with problems, questions or concerns. If you call after 8pm or on weekends, call the Hospital at [phone] and ask to speak to the Damper Worker cushion mat maker and the bath mix operator will contact that person for you. [...] any problems. Where can you learn more? [facility] View your After Visit Summary and more online at [email or web address] If you would like to provide feedback about your hospital experience, please call the Office of Patient and Family Relations at . If you have received this After Visit Summary in error, please immediately return it in person to the department, or notify the [facility] Privacy Office by calling toll free at between the hours of 8AM and 5PM to arrange for our retrieval of the documents at no cost to you. Content Version: 12.2 ?? [phone] [employer]. Care instructions adapted under license by [facility]. If you have questions about a medical condition or this instruction, always ask your healthcare professional. [employer] disclaims any warranty or liability for your use of this information. documented in this encounter Medications at Time of Discharge Medication Sig Dispensed Refills Start Date End Date sacubitriL-valsartan (Entresto) 24-26 mg tabletIndications:HF rEF (heart [...] meter kit. 1 each 0 12/14/2014 Insulin [place], Disposable, (BD INSULIN PEN NEEDLE UF MINI) 31 x 07/23 NeedleIndications:Di abetes mellitus type 2, uncontrolled 1 Device by Misc.(Non-Drug; Combo Route) route 3 times daily as needed. 100 each 11 12/13/2014 sucralfate (Carafate) 1 gram tablet Take 1 tablet by mouth 4 times daily. 360 tablet 3 10/22/2022 03/23/2024 documented as of this encounter H&P Notes [...] 04/26/2024 8:30 AM [place] [address] Gavin Carrillo MD [facility] [address] [place] [address] 06/05/2024 1:20 PM EST Office Visit Cardiology at [address] [phone] Milagros Hernandez MD [facility] [place] [address] Scheduled Procedures Name Priority Associated Diagnoses Date/Ti me EGD, UPPER GI ENDOSCOPY (WRV U 2.09) Peptic stricture of esophagus documented as of this encounter Procedures Procedure Name Priority Date/Time Associated Diagnosis Comments Up Gi Endoscopy, Ball Dil, 30Mm (17374) 08/02/2023 11:01 AM EDT Peptic stricture of esophagus UPPER GI ENDOSCOPY Routine 08/02/2023 10 :49 AM EDT POCT GLUCOSE Routine 08/02/2023 9:54 AM EDT documented in this encounter Results * UPPER GI ENDOSCOPY (08/02/2023 10:49 AM EDT) Pathologist [facility] UPPER GI ENDOSCOPY [facility] Endoscopy Procedure Date: 08/02/2023 10:49 AM ? Patient Name: Jennifer Irving ? Date of : 1960 ? Age: 63 ? Order #: [id number] ? Instrument Name: [id number] ? Procedure: ? Upper GI endoscopy Indications: ? Peptic Stricture Providers: ? David Dejesus MD, Parminder Craig ? Ayo Mao, ? Tapan Camargo Referring : ?Ana Gillespie Medicines: ? General [...] 08/02/2023 10:4 9 AM EDT Ana Gillespie FLIGHT PHYSICIAN GENERAL SURGICAL ORD ERABLES [employer]ATION * POCT Glucose (08/02/2023 9:54 AM EDT) Glucose, POC 81 65 - 199 mg/dL [facility] Comment: Supplemental ranges: <140 mg/dL before meals <180 mg/dL all other times of the day Blood 08/02/2023 9:54 AM EDT 08/02/2023 9:54 AM EDT David Dejesus MD POINT [place] [address] documented in this encounter Visit Diagnoses Not [...] CRNA) documented in this encounter Care Teams Motor Assembler Relationship Specialty Start Date End Date Ana Gillespie APRN [address] [place] [address] PCP - General Family Medicine 02/03/19 documented as of this encounter
--- OUTSIDE RECORDS SUMMARY | 2024-04-19 22:53 | XMS_ITS | Encounter Summary ---
Author Organization [facility] [place] [address] Care Team Providers Care Crop Scout Name Role Phone Ana Gillespie VAUGHN Primary Care Provider [phone] Encounter Details Date Type Department Care Team (Late st Contact Info) Description 08/10/2023 Telephone [place] [address] Chiquita James, RN Social History [...] 04/26/2024 8:30 AM EST [place] [phone] Gavin Carrillo MD [facility] [place] [address] 06/05/2024 1:20 PM EST Office Visit Cardiology at [address] [phone] Milagros Hernandez MD [facility] [place] [address] Scheduled Procedures Name Priority Associated Diagnoses Date/Ti me EGD, UPPER GI ENDOSCOPY (WRV U 2.09) Peptic stricture of esophagus documented as of this encounter Visit Diagnoses Not on filedocumented in this encounter Care Teams Crop Scout Relationship Specialty Start Date End Date Ana Gillespie APRN [address] [place] [address] PCP - General Family Medicine 02/03/19 documented as of this encounter
--- OUTSIDE RECORDS SUMMARY | 2024-04-19 22:53 | XMS_ITS | Encounter Summary ---
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 Procedures IR Site Check In Recovery Room Hang Cooper PA [facility] [place] [address] [facility] [place] [address] Referral ID Status Reason Start Date Expiration Date V isits Requested Visits Authorized [id number] Closed Specialty Service Requested 09/20/2023 03/22/2025 1 1 Encounter Details Date Type Department Care Team (Late st Contact Info) Description 09/20/2023 Notes [place] [address] Hang Cooper PA [facility] DR [place] [address] Social History Tobacco Use Types [...] 04/26/2024 8:30 AM [place] [phone] Gavin Carrillo MD [facility] DR [place] [address] 06/05/2024 1:20 PM EST Office Visit Cardiology at [address] [phone] Milagros Hernandez MD [facility] [place] [address] Scheduled Orders Name Type Priority Associated Diagnoses Orde r Schedule IR Site Check In Recovery Room Imaging Routine Problem with gastrostomy tube Neuroleptic-induced parkinsonism Farerll's esophagus with high grade dysplasia Expected: 09/20/2023, Expires: 10/21/2023 Scheduled Procedures Name Priority Associated Diagnoses Date/Ti me EGD, UPPER GI ENDOSCOPY (WRV U 2.09) Peptic stricture of esophagus documented as of this encounter Visit Diagnoses Diagnosis Problem with gastrostomy tube 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
--- OUTSIDE RECORDS SUMMARY | 2024-04-19 22:53 | XMS_ITS | Encounter Summary ---
Author Organization [facility] Address [facility] Marly petersen [place] [id number] Care Team Providers Care Secretary Of State Name Role Phone Ana Gillespie APRN Primary Care Provider [phone] Encounter Details Date Type Department Care Team [...] 04/26/2024 8:30 AM EST Appointment Radiology at [place] [phone] Gavin Carrillo MD [facility] [place] [address] 06/05/2024 1:20 PM EST Office Visit Cardiology at [address] [phone] Milagros Hernandez MD [facility] [place] [address] Scheduled Procedures Name Priority Associated Diagnoses Date/Ti me EGD, UPPER GI ENDOSCOPY (WRV U 2.09) Peptic stricture of esophagus documented as of this encounter Visit Diagnoses Not on filedocumented in this encounter Care Teams Secretary Of State Relationship Specialty Start Date End Date Ana Gillespie APRN [address] [place] [address] PCP - General Family Medicine 02/03/19 documented as of this encounter
--- OUTSIDE RECORDS SUMMARY | 2024-04-19 22:53 | XMS_ITS | Encounter Summary ---
Author Organization [facility] [place] [address] Care Team Providers Care Firearms Specialist Name Role Phone Ana Gillespie TEAROOM HOST Primary Care Provider [phone] Encounter Details Date Type Department Care Team (Late st Contact Info) Description 07/28/2023 [place] [phone] Niru Mary Social History Tobacco Use Types [...] - 07/28/2023 5:13 PM EDT Copied from [facility] #[id number]. Topic: Specialty Dept CRMs - Generic Call [...] 04/26/2024 8:30 AM [place] [address] Gavin Carrillo MD [facility] [place] [address] 06/05/2024 1:20 PM EST Office Visit Cardiology at [address] [phone] Milagros Hernandez MD [facility] [place] [address] Scheduled Procedures Name Priority Associated Diagnoses Date/Ti me EGD, UPPER GI ENDOSCOPY (WRV U 2.09) Peptic stricture of esophagus documented as of this encounter Visit Diagnoses Not on filedocumented in this encounter Care Teams Firearms Specialist Relationship Specialty Start Date End Date Ana Gillespie APRN [address] [place] [address] PCP - General Family Medicine 02/03/19 documented as of this encounter
--- OUTSIDE RECORDS SUMMARY | 2024-04-19 22:53 | XMS_ITS | Encounter Summary ---
Author Organization [facility] [place] [address] Care Team Providers Care Operations Support Analyst Name Role Phone Ana Gillespie APRN Primary Care Provider [phone] Encounter Details Date Type Department Care Team (Late st Contact Info) Description 10/07/2023 10:41 AM EDT Anesthesia [place] [address] Alex Conley MD [facility] [place] [address] Valerie Vital CRNA [facility] [place] [address] Anesthesia Record Procedure Summary Procedure Name Responsible [...] by Sergey Jordan RN PIV 10/07/23; 1041; rncl-cfk-xqkqse catheter system; 20 gauge, 1 in length; [...] Procedure Summary Date: 10/07/23 Room / Location: [facility] ENDO 1 / [facility] ENDOSCOPY Anesthesia Start: 1041 Anesthesia Stop: 1123 Procedure: EGD-ESOPHOGEAL DILATATION OVER GUIDE WIRE (WRVU 2.91) (Trunk) Diagnosis: Peptic stricture of esophagus (shedule one month - peptic stricture dilation) Surgeons: David Dejesus MD Responsible Provider: Anesthesia Type: MAC ASA Status: 3 All Anesthesia Providers: Student Nurse Cut Order Hand: Zenia Montiel Vitals Value Taken Time BP 148/72 10/07/23 1140 Temp Pulse Resp 15 10/07/23 1140 SpO2 100 % 10/07/23 1148 Pain Level 0 10/07/23 1140 Vitals shown include unfiled device data. Patient Location: PACU/[facility] Level of Consciousness: Conscious but Sleepy [...] IR G-Tube Check/Change 11/27/2022 Hang Cooper PA [facility] RAD ??? IR G-TUBE CHECK/CHANGE 03/10/2023 IR G-Tube Check/Change 03/10/2023 Geronimo Chambers, DO [facility] INTERVENTIONL RAD ??? IR G-TUBE CHECK/CHANGE 04/06/2023 IR G-Tube Check/Change 04/06/2023 Gavin Carrillo MD [facility] INTER[facility]IONL RAD ??? IR G-TUBE CHECK/CHANGE 05/09/2023 IR G-Tube Check/Change [facility] RAD ??? IR G-TUBE CHECK/CHANGE 07/09/2023 IR G-Tube Check/Change [facility] RAD ??? IR G-TUBE CHECK/CHANGE 09/17/2023 IR G-Tube Check/Change 09/17/2023 Hang Cooper PA [facility] INTER[facility] RAD ??? IR G-TUBE PLACEMENT 09/11/2022 IR G-Tube Placement 09/11/2022 Moustapha Hart MD [facility] INTER[facility] RAD ??? IR SUTURE RELEASE 09/25/2022 IR Suture Release 09/25/2022 Yoselin Ghosh PA [facility] INTERVENTION[facility] RAD ??? PERCUTANEOUS GASTROSTOMY N/A 09/11/2022 PERCUTANEOUS GASTROSTOMY performed by Aiden Flores MD at [facility] CATY ??? PRO COLONOSCOPY, BIOPSY N/A 03/20/2016 COLONOSCOPY FLEXIBLE, WITH BX performed by David Dejesus MD at [facility] ENDOSCOPY ??? PRO COLONOSCOPY, DIAGNOSTIC N/A 03/01/2020 COLONOSCOPY, DIAGNOSTIC performed by David Dejesus MD at [facility] ENDOSCOPY ??? PRO ENDOSCOPIC US EXAM, ESOPH N/A 03/31/2022 UPPER EUS- ENDOSCOPIC ULTRASOUND performed by David Dejesus MD at [facility] ENDOSCOPY ??? PRO UP GI ENDOSCOPY, BALL DIL, 30MM N/A 12/24/2022 EGD,WITH DILATION ESOPHAGUS WITH BALLOON,< 30 MM (WRVU 2.67) performed by David Dejesus [facility] ENDOSCOPY ??? PRO UP GI ENDOSCOPY, BALL DIL, 30MM N/A 01/12/2023 EGD,WITH DILATION ESOPHAGUS WITH BALLOON,< 30 MM (WRVU 2.67) performed by David Dejesus [facility] ENDOSCOPY ??? PRO UP GI ENDOSCOPY, BALL DIL, 30MM N/A 02/26/2023 EGD,WITH DILATION ESOPHAGUS WITH BALLOON,< 30 MM (WRVU 2.67) performed by David Dejesus [facility] ENDOSCOPY ??? PRO UP GI ENDOSCOPY, BALL DIL, 30MM N/A 03/16/2023 EGD,WITH DILATION ESOPHAGUS WITH BALLOON,< 30 MM (WRVU 2.67) performed by David Dejesus [facility] ENDOSCOPY ??? PRO UP GI ENDOSCOPY, BALL DIL, 30MM N/A 03/30/2023 EGD,WITH DILATION ESOPHAGUS WITH BALLOON,< 30 MM (WRVU 2.67) performed by David Dejesus [facility] ENDOSCOPY ??? PRO UP GI ENDOSCOPY, BALL DIL, 30MM N/A 04/30/2023 EGD,WITH DILATION ESOPHAGUS WITH BALLOON,< 30 MM (WRVU 2.67) performed by David Dejesus [facility] ENDOSCOPY ??? PRO UP GI ENDOSCOPY, BALL DIL, 30MM N/A 06/01/2023 EGD,WITH DILATION ESOPHAGUS WITH BALLOON,< 30 MM (WRVU 2.67) performed by David Dejesus [facility] ENDOSCOPY ??? PRO UP GI ENDOSCOPY, BALL DIL, 30MM N/A 08/02/2023 EGD,WITH DILATION ESOPHAGUS WITH BALLOON,< 30 MM (WRVU 2.67) performed by David Dejesus [facility] ENDOSCOPY ??? PRO UPPER GI ENDOSCOPY, BIOPSY N/A 04/03/2014 UPPER GASTROINTESTINAL ENDOSCOPY,WITH BIOPSY SINGLE OR MULTIPLE performed by David Dejesus [facility] ENDOSCOPY ??? PRO UPPER GI ENDOSCOPY, BIOPSY N/A 03/20/2016 EGD WITH BIOPSY performed by David Dejesus MD at [facility] ENDOSCOPY ??? PRO UPPER GI ENDOSCOPY, BIOPSY N/A 11/22/2018 EGD WITH BIOPSY (WRVU 2.49) performed by David Dejesus MD at [facility] ENDOSCOPY ??? PRO UPPER GI ENDOSCOPY, BIOPSY N/A 03/01/2020 UPPER GASTROINTESTINAL ENDOSCOPY,WITH BIOPSY SINGLE OR MULTIPLE (WRVU 2.49) performed by David Dejesus MD at [facility] ENDOSCOPY ??? PRO UPPER GI ENDOSCOPY, BIOPSY N/A 09/23/2021 EGD WITH BIOPSY (WRVU 2.49) performed by David Dejesus MD at [facility] ENDOSCOPY ??? PRO UPPER GI ENDOSCOPY, BIOPSY N/A 03/31/2022 EGD WITH BIOPSY (WRVU 2.49) performed by David Dejesus MD at [facility] ENDOSCOPY ??? PRO UPPER GI ENDOSCOPY, BIOPSY N/A 07/03/2022 EGD WITH BIOPSY (WRVU 2.49) performed by David Dejesus MD at [facility] ENDOSCOPY ??? PRO UPPER GI ENDOSCOPY, DIAGNOSTIC N/A 04/03/2014 EGD, UPPER GI ENDOSCOPY performed by David Dejesus MD at [facility] ENDOSCOPY ??? PRO UPPER GI ENDOSCOPY, DIAGNOSTIC N/A 03/01/2020 EGD, UPPER GI ENDOSCOPY performed by David Dejesus MD at [facility] ENDOSCOPY ??? PRO UPPER GI ENDOSCOPY, DIAGNOSTIC N/A 09/09/2022 EGD, UPPER GI ENDOSCOPY (WRVU 2.09) performed by Ayo Russ MD at [facility] MAIN OR Social History Tobacco [...] risks discussed with patient. Plan discussed with GRINDER HAND. Anesthesia Screening * Anesthesia Preprocedure Evaluation - [...] IR G-Tube Check/Change 11/27/2022 Hang Cooper PA [facility] RAD ??? IR G-TUBE CHECK/CHANGE 03/10/2023 IR G-Tube Check/Change 03/10/2023 Geronimo Chambers, DO [facility] RAD ??? IR G-TUBE CHECK/CHANGE 04/06/2023 IR G-Tube Check/Change 04/06/2023 Gavin Carrillo MD [facility] RAD ??? IR G-TUBE CHECK/CHANGE 05/09/2023 IR G-Tube Check/Change [facility] RAD ??? IR G-TUBE CHECK/CHANGE 07/09/2023 IR G-Tube Check/Change [facility] RAD ??? IR G-TUBE PLACEMENT 09/11/2022 IR G-Tube Placement 09/11/2022 Moustapha Hart MD [facility] RAD ??? IR SUTURE RELEASE 09/25/2022 IR Suture Release 09/25/2022 Yoselin Ghosh PA [facility] INTER[facility] RAD ??? PERCUTANEOUS GASTROSTOMY N/A 09/11/2022 PERCUTANEOUS GASTROSTOMY performed by Aiden Flores MD at [facility] CATY ??? PRO COLONOSCOPY, BIOPSY N/A 03/20/2016 COLONOSCOPY FLEXIBLE, WITH BX performed by David Dejesus MD at [facility] ENDOSCOPY ??? PRO COLONOSCOPY, DIAGNOSTIC N/A 03/01/2020 COLONOSCOPY, DIAGNOSTIC performed by David Dejesus MD at [facility] ENDOSCOPY ??? PRO ENDOSCOPIC US EXAM, ESOPH N/A 03/31/2022 UPPER EUS- ENDOSCOPIC ULTRASOUND performed by David Dejesus MD at [facility] ENDOSCOPY ??? PRO UP GI ENDOSCOPY, BALL DIL, 30MM N/A 12/24/2022 EGD,WITH DILATION ESOPHAGUS WITH BALLOON,< 30 MM (WRVU 2.67) performed by David Dejesus [facility] ENDOSCOPY ??? PRO UP GI ENDOSCOPY, BALL DIL, 30MM N/A 01/12/2023 EGD,WITH DILATION ESOPHAGUS WITH BALLOON,< 30 MM (WRVU 2.67) performed by David Dejesus [facility] ENDOSCOPY ??? PRO UP GI ENDOSCOPY, BALL DIL, 30MM N/A 02/26/2023 EGD,WITH DILATION ESOPHAGUS WITH BALLOON,< 30 MM (WRVU 2.67) performed by David Dejesus [facility] ENDOSCOPY ??? PRO UP GI ENDOSCOPY, BALL DIL, 30MM N/A 03/16/2023 EGD,WITH DILATION ESOPHAGUS WITH BALLOON,< 30 MM (WRVU 2.67) performed by David Dejesus [facility] ENDOSCOPY ??? PRO UP GI ENDOSCOPY, BALL DIL, 30MM N/A 03/30/2023 EGD,WITH DILATION ESOPHAGUS WITH BALLOON,< 30 MM (WRVU 2.67) performed by David Dejesus [facility] ENDOSCOPY ??? PRO UP GI ENDOSCOPY, BALL DIL, 30MM N/A 04/30/2023 EGD,WITH DILATION ESOPHAGUS WITH BALLOON,< 30 MM (WRVU 2.67) performed by David Dejesus [facility] ENDOSCOPY ??? PRO UP GI ENDOSCOPY, BALL DIL, 30MM N/A 06/01/2023 EGD,WITH DILATION ESOPHAGUS WITH BALLOON,< 30 MM (WRVU 2.67) performed by David Dejesus [facility] ENDOSCOPY ??? PRO UP GI ENDOSCOPY, BALL DIL, 30MM N/A 08/02/2023 EGD,WITH DILATION ESOPHAGUS WITH BALLOON,< 30 MM (WRVU 2.67) performed by David Dejesus [facility] ENDOSCOPY ??? PRO UPPER GI ENDOSCOPY, BIOPSY N/A 04/03/2014 UPPER GASTROINTESTINAL ENDOSCOPY,WITH BIOPSY SINGLE OR MULTIPLE performed by David Dejesus [facility] ENDOSCOPY ??? PRO UPPER GI ENDOSCOPY, BIOPSY N/A 03/20/2016 EGD WITH BIOPSY performed by David Dejesus MD at [facility] ENDOSCOPY ??? PRO UPPER GI ENDOSCOPY, BIOPSY N/A 11/22/2018 EGD WITH BIOPSY (WRVU 2.49) performed by David Dejesus MD at [facility] ENDOSCOPY ??? PRO UPPER GI ENDOSCOPY, BIOPSY N/A 03/01/2020 UPPER GASTROINTESTINAL ENDOSCOPY,WITH BIOPSY SINGLE OR MULTIPLE (WRVU 2.49) performed by David Dejesus MD at [facility] ENDOSCOPY ??? PRO UPPER GI ENDOSCOPY, BIOPSY N/A 09/23/2021 EGD WITH BIOPSY (WRVU 2.49) performed by David Dejesus MD at [facility] ENDOSCOPY ??? PRO UPPER GI ENDOSCOPY, BIOPSY N/A 03/31/2022 EGD WITH BIOPSY (WRVU 2.49) performed by David Dejesus MD at [facility] ENDOSCOPY ??? PRO UPPER GI ENDOSCOPY, BIOPSY N/A 07/03/2022 EGD WITH BIOPSY (WRVU 2.49) performed by David Dejesus MD at [facility] ENDOSCOPY ??? PRO UPPER GI ENDOSCOPY, DIAGNOSTIC N/A 04/03/2014 EGD, UPPER GI ENDOSCOPY performed by David Dejesus MD at [facility] ENDOSCOPY ??? PRO UPPER GI ENDOSCOPY, DIAGNOSTIC N/A 03/01/2020 EGD, UPPER GI ENDOSCOPY performed by David Dejesus MD at [facility] ENDOSCOPY ??? PRO UPPER GI ENDOSCOPY, DIAGNOSTIC N/A 09/09/2022 EGD, UPPER GI ENDOSCOPY (WRVU 2.09) performed by Ayo Russ MD at [facility] MAIN OR Social History Tobacco [...] 04/26/2024 8:30 AM [place] [address] Gavin Carrillo MD [facility] [place] [address] 06/05/2024 1:20 PM EST Office Visit Cardiology at [address] [address] Milagros Hernandez MD [facility] [place] [place] [address] Scheduled Procedures Name Priority Associated [...] mg documented in this encounter Care Teams Operations Support Analyst Relationship Specialty Start Date End Date Ana Gillespie APRN [address] [place] [address] PCP - General Family Medicine 02/03/19 documented as of this encounter
--- OUTSIDE RECORDS SUMMARY | 2024-04-19 22:53 | XMS_ITS | Encounter Summary ---
Author Organization [facility] [place] [address] Care Team Providers Care Track Manager Name Role Phone Ana Gillespie APRN Primary Care Provider [phone] Encounter Details Date Type Department Care Team (Late st Contact Info) Description 08/02/2023 [place] [phone] David Dejesus MD [facility] [place] [address] Peptic stricture of esophagus Social History Tobacco [...] 04/26/2024 8:30 AM [place] [address] Gavin Carrillo MD [facility] [place] [address] 06/05/2024 1:20 PM EST Office Visit Cardiology at [address] [phone] Milagros Hernandez MD [facility] [place] [address] Scheduled Procedures Name Priority Associated Diagnoses Date/Ti me EGD, UPPER GI ENDOSCOPY (WRV U 2.09) Peptic stricture of esophagus documented as of this encounter Visit Diagnoses Diagnosis Peptic stricture of esophagus Stricture and stenosis of esophagus documented in this encounter Care Teams Track Manager Relationship Specialty Start Date End Date Ana Gillespie APRN [address] [place] [address] PCP - General Family Medicine 02/03/19 documented as of this encounter
--- OUTSIDE RECORDS SUMMARY | 2024-04-19 22:53 | XMS_ITS | Encounter Summary ---
Author Organization [facility] [place] [address] Care Team Providers Care Visual Merchandising Associate Name Role Phone Ana Gillespie VAUGHN Primary Care Provider [phone] Encounter Details Date Type Department Care Team (Latest Contact Info) Description 10/07/2023 9:20 AM EDT - 10/07/2023 12:03 PM EDT Hospital Encounter [place] [address] David Dejesus MD [facility] [place] [address] Discharge Disposition: Home Social History Tobacco Use [...] the day after the procedure, use an ismn-wfy-nzzlxgs spray to numb your throat. Sucking on [...] occurs, please contact your Doctor. Please call [phone] before 8pm Mon-Fri with problems, questions or concerns. If you call after 8pm or on weekends, call the Hospital at [phone] and ask to speak to the Cattle Shipper electronic development technician and the electromagnet crane operator will contact that person for you. When should you call for help? Call [phone] anytime you think you may need emergency [...] Where can you learn more? [facility] View your After Visit Summary and more online at [email or web address] If you would like to provide feedback about your hospital experience, please call the Office of Patient and Family Relations at . If you have received this After Visit Summary in error, please immediately return it in person to the department, or notify the [facility] Privacy Office by calling toll free at between the hours of 8AM and 5PM to arrange for our retrieval of the documents at no cost to you. Content Version: 12.2 ?? 3250-3575 [employer]. Care instructions adapted under license by [facility]. If you have questions about a medical condition or this instruction, always ask your healthcare professional. [employer] disclaims any warranty or liability for your [...] the day after the procedure, use an duix-ffo-guanzkz spray to numb your throat. Sucking on [...] occurs, please contact your Doctor. Please call [phone] before 8pm Mon-Fri with problems, questions or concerns. If you call after 8pm or on weekends, call the Hospital at [phone] and ask to speak to the Cattle Shipper electronic development technician and the electromagnet crane operator will contact that person for you. [...] Where can you learn more? [facility] View your After Visit Summary and more online at [email or web address] If you would like to provide feedback about your hospital experience, please call the Office of Patient and Family Relations at . If you have received this After Visit Summary in error, please immediately return it in person to the department, or notify the [facility] Privacy Office by calling toll free at between the hours of 8AM and 5PM to arrange for our retrieval of the documents at no cost to you. Content Version: 12.2 ?? 1083-7403 [employer]. Care instructions adapted under license by [facility]. If you have questions about a medical condition or this instruction, always ask your healthcare professional. [employer] disclaims any warranty or liability for your [...] kit. 1 each 0 12/14/2014 Insulin [place], Disposable, (BD INSULIN PEN NEEDLE UF [...] glucose meter kit. 1 each 0 Insulin [place], Disposable, (BD INSULIN PEN NEEDLE UF [...] 04/26/2024 8:30 AM EST Appoint[place] [phone] Gavin Carrillo MD [facility] INTERVENTIONAL [place] [address] 06/05/2024 1:20 PM EST Office Visit Cardiology at [address] [phone] Milagros Hernandez MD [facility] [place] [place] [address] Scheduled Procedures Name Priority Associated Diagnoses Date/Ti me EGD, UPPER GI ENDOSCOPY (WRV U 2.09) Peptic stricture of esophagus documented as of this encounter Procedures Procedure Name Priority Date/Time Associated Diagnosis Comments Up Gi Endoscopy, Jes Cervantes Guide ([id number]) 10/07/2023 10:44 AM EDT Peptic stricture of esophagus UPPER GI ENDOSCOPY Routine 10/07/2023 10 :34 AM EDT documented in this encounter Results * UPPER GI ENDOSCOPY (10/07/2023 10:34 AM EDT) UPPER GI ENDOSCOPY [facility] Endoscopy Procedure Date: 10/07/2023 10:34 AM ? Patient Name: Jennifer Irving ? Date of : 1960 ? Age: 63 ? Order #: [id number] ? Instrument Name: [id number] ? Procedure: ? Upper GI endoscopy Indications: [...] 100 mL/hr, Intravenous, CONTINUOUS, Starting on Betty 24 at 1100, Until Betty 24 at 1152, Endoscopy (Day of Procedure) 1100 (New Bag - Prov ider: Jennifer Garibay RN) documented in this encounter Care Teams Visual Merchandising Associate Relationship Specialty Start Date End Date Ana Gillespie APRN [address] [place] [address] PCP - General Family Medicine 02/03/19 documented as of this encounter
--- OUTSIDE RECORDS SUMMARY | 2024-04-19 22:53 | XMS_ITS | Encounter Summary ---
Author Organization [facility] Address [facility] [place] [address] Care Team Providers Care Svp Programmatic Tv Name Role Phone Ana Gillespie APRN Primary Care Provider [phone] Encounter Details Date Type Department Care Team (Late st Contact Info) Description 10/07/2023 11:15 AM EDT - 10/07/2023 12:00 PM EDT [place] [address] David Dejesus MD [facility] [place] [address] EGD-ESOPHOGEAL DILATATION OVER GUIDE WIRE (WRVU 2.91) [...] the day after the procedure, use an utjf-qmy-ildaosg spray to numb your throat. Sucking on [...] occurs, please contact your Doctor. Please call [phone] before 8pm Mon-Fri with problems, questions or concerns. If you call after 8pm or on weekends, call the Hospital at [phone] and ask to speak to the Accountant Controller collections clerk and the gear shaper set up operator will contact that [...] problems. Where can you learn more? [facility] View your After Visit Summary and more online at [email or web address] If you would like to provide [...] cost to you. Content Version: 12.2 ?? 8947-0574 [employer]. Care instructions adapted under license by [facility]. If you have questions about a medical condition or this instruction, always ask your healthcare professional. [employer] disclaims any warranty or liability for your [...] the day after the procedure, use an nzhh-zlf-ojolyzd spray to numb your throat. Sucking on [...] occurs, please contact your Doctor. Please call [phone] before 8pm Mon-Fri with problems, questions or concerns. If you call after 8pm or on weekends, call the Hospital at [phone] and ask to speak to the Accountant Controller collections clerk and the gear shaper set up operator will contact that [...] problems. Where can you learn more? [facility] View your After Visit Summary and more online at [email or web address] If you would like to provide [...] cost to you. Content Version: 12.2 ?? 4503-4349 [employer]. Care instructions adapted under license by [facility]. If you have questions about a medical condition or this instruction, always ask your healthcare professional. [employer] disclaims any warranty or liability for your [...] meter kit. 1 each 0 12/14/2014 Insulin [place], Disposable, (BD INSULIN PEN NEEDLE UF MINI) 31 x 07/23 NeedleIndications:Di abetes mellitus type 2, uncontrolled 1 Device by [facility] [...] glucose meter kit. 1 each 0 Insulin [place], Disposable, (BD INSULIN PEN NEEDLE UF MINI) [...] 04/26/2024 8:30 AM [place] [phone] Gavin Carrillo MD [facility] [place] [address] 06/05/2024 1:20 PM EST Office Visit Cardiology at [address] [phone] Milagros Hernandez MD [facility] [place] [address] Scheduled Procedures Name Priority Associated Diagnoses Date/Ti me EGD, UPPER GI ENDOSCOPY (WRV U 2.09) Peptic stricture of esophagus documented as of this encounter Procedures Procedure Name Priority Date/Time Associated Diagnosis Comments Up Gi Endoscopy, Jes Hartmann ([id number]) 10/07/2023 10:44 AM EDT Peptic stricture of esophagus UPPER GI ENDOSCOPY Routine 10/07/2023 10 :34 AM EDT documented in this encounter Results * UPPER GI ENDOSCOPY (10/07/2023 10:34 AM EDT) UPPER GI ENDOSCOPY [facility] Endoscopy Procedure Date: 10/07/2023 10:34 AM ? Patient Name: Jennifer Irving ? Date of : 1960 ? Age: 63 ? Order #: [id number] ? Instrument Name: [id number]- [id number] ? Procedure: ? Upper GI endoscopy Indications: ? Dysphagia Providers: ? David Dejesus MD, Brittany ? Mary Geller MD: ? Medicines: ? [...] RN) documented in this encounter Care Teams Svp Programmatic Tv Relationship Specialty Start Date End Date Ana Gillespie APRN [address] [place] [address] PCP - General Family Medicine 02/03/19 documented as of this encounter
--- OUTSIDE RECORDS SUMMARY | 2024-04-19 22:53 | XMS_ITS | Encounter Summary ---
Author Organization [facility] [place] [address] Care Team Providers Care Aircraft Log Clerk Name Role Phone Ana Gillespie VAUGHN Primary Care Provider [phone] Reason for Referral * Diagnostic Test (Routine) - Closed Specialty Diagnoses / Procedures Referred By Esperanza rodríguez Referred To Contact Radiology Diagnoses Problem with gastrostomy tube Farrell's esophagus with high grade dysplasia Farrell's esophagus with low grade dysplasia Procedures IR G-Tube Check/Change Hang Cooper PA [facility] [place] [address] [facility] [place] [address] Referral ID Status Reason Start Date Expiration Date V isits Requested Visits Authorized [id number] Closed Specialty Service Requested 09/23/2023 03/25/2025 1 1 * Diagnostic Test (Routine) - Closed Specialty Diagnoses / Procedures Referred By Esperanza rodríguez Referred To Contact Radiology Diagnoses Problem with gastrostomy tube 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 Procedures IR Site Check In Recovery Room Hang Cooper PA [facility] [place] [address] [place] [address] Referral ID Status Reason Start Date Expiration Date V isits Requested Visits Authorized [id number] Closed Specialty Service Requested 09/20/2023 03/22/2025 1 1 Reason for Visit * Diagnostic Test (Routine) - Closed Specialty Diagnoses / Procedures Referred By Esperanza rodríguez Referred To Contact Radiology Diagnoses Problem with gastrostomy tube 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 Procedures IR Site Check In Recovery Room Hang Cooper PA [facility] [address] [place] [address] [facility] [address] Referral ID Status Reason Start Date Expiration Date V isits Requested Visits Authorized [id number] Closed Specialty Service Requested 09/20/2023 03/22/2025 1 1 Encounter Details Date Type Department Care Team (Latest Contact Info) Description 09/23/2023 9:47 AM EDT - 09/23/2023 11:59 PM EDT Hospital [place] [address] Geronimo Chambers, [facility] [place] [address] Problem with gastrostomy tube; Neuroleptic-induced parkinsonism; Farrell's [...] meter kit. 1 each 0 12/14/2014 Insulin Pacific, Disposable, (BD INSULIN PEN NEEDLE UF MINI) [...] Patient Name: Jennifer Irving : 1960 MR#: [id number] Seen in IR recovery in followup to G-tube issues. Exchanged by IR on 09/16 due to occlusion. [place]ed to [place] where tube could not be flushed. Exchanged [...] daily. 180 tablet 3 Blood Sugar Diagnostic (SCL ULTRA TEST) Strip 1 each by Other [...] glucose meter kit. 1 each 0 Insulin Pacific, Disposable, (BD INSULIN PEN NEEDLE UF MINI) [...] IR G-Tube Check/Change 11/27/2022 Hang Cooper PA [facility] INTERVENTIONL RAD IR G-TUBE CHECK/CHANGE 03/10/2023 IR G-Tube Check/Change 03/10/2023 Geronimo Chambers DO [facility] INTERVENTIONL RAD IR G-TUBE CHECK/CHANGE 04/06/2023 IR G-Tube Check/Change 04/06/2023 Gavin Carrillo MD [facility] INTERVENTIONL RAD IR G-TUBE CHECK/CHANGE 05/09/2023 IR G-Tube Check/Change [facility] INTERVENTIONL RAD IR G-TUBE CHECK/CHANGE 07/09/2023 IR G-Tube Check/Change [facility] INTERVENTIONL RAD IR G-TUBE CHECK/CHANGE 09/17/2023 IR G-Tube Check/Change 09/17/2023 Hang Cooper PA [facility] INTERVENTIONL RAD IR G-TUBE PLACEMENT 09/11/2022 IR G-Tube Placement 09/11/2022 Moustapha Hart MD [facility] INTERVENTIONL RAD IR SUTURE RELEASE 09/25/2022 IR Suture Release 09/25/2022 Yoselin Ghosh PA [facility] INTERVENTIONL RAD PERCUTANEOUS GASTROSTOMY N/A 09/11/2022 PERCUTANEOUS GASTROSTOMY performed by Aiden Flores MD at [facility] CATY PRO COLONOSCOPY, BIOPSY N/A 03/20/2016 COLONOSCOPY FLEXIBLE, WITH BX performed by David Dejesus MD at [facility] ENDOSCOPY PRO COLONOSCOPY, DIAGNOSTIC N/A 03/01/2020 COLONOSCOPY, DIAGNOSTIC performed by David Dejesus MD at [facility] ENDOSCOPY PRO ENDOSCOPIC US EXAM, ESOPH N/A 03/31/2022 UPPER EUS- ENDOSCOPIC ULTRASOUND performed by David Dejesus MD at [facility] ENDOSCOPY PRO UP GI ENDOSCOPY, BALL DIL, 30MM N/A 12/24/2022 EGD,WITH DILATION ESOPHAGUS WITH BALLOON,< 30 MM (WRVU 2.67) performed by David Dejesus [facility] ENDOSCOPY PRO UP GI ENDOSCOPY, BALL DIL, 30MM N/A 01/12/2023 EGD,WITH DILATION ESOPHAGUS WITH BALLOON,< 30 MM (WRVU 2.67) performed by David Dejesus [facility] ENDOSCOPY PRO UP GI ENDOSCOPY, BALL DIL, 30MM N/A 02/26/2023 EGD,WITH DILATION ESOPHAGUS WITH BALLOON,< 30 MM (WRVU 2.67) performed by David Dejesus [facility] ENDOSCOPY PRO UP GI ENDOSCOPY, BALL DIL, 30MM N/A 03/16/2023 EGD,WITH DILATION ESOPHAGUS WITH BALLOON,< 30 MM (WRVU 2.67) performed by David Dejesus [facility] ENDOSCOPY PRO UP GI ENDOSCOPY, BALL DIL, 30MM N/A 03/30/2023 EGD,WITH DILATION ESOPHAGUS WITH BALLOON,< 30 MM (WRVU 2.67) performed by David Dejesus [facility] ENDOSCOPY PRO UP GI ENDOSCOPY, BALL DIL, 30MM N/A 04/30/2023 EGD,WITH DILATION ESOPHAGUS WITH BALLOON,< 30 MM (WRVU 2.67) performed by David Dejesus [facility] ENDOSCOPY PRO UP GI ENDOSCOPY, BALL DIL, 30MM N/A 06/01/2023 EGD,WITH DILATION ESOPHAGUS WITH BALLOON,< 30 MM (WRVU 2.67) performed by David Dejesus MDat [facility] ENDOSCOPY PRO UP GI ENDOSCOPY, BALL DIL, 30MM N/A 08/02/2023 EGD,WITH DILATION ESOPHAGUS WITH BALLOON,< 30 MM (WRVU 2.67) performed by David Dejesus MDat [facility] ENDOSCOPY PRO UPPER GI ENDOSCOPY, BIOPSY N/A 04/03/2014 UPPER GASTROINTESTINAL ENDOSCOPY,WITH BIOPSY SINGLE OR MULTIPLE performed by David Dejesus MDat [facility] ENDOSCOPY PRO UPPER GI ENDOSCOPY, BIOPSY N/A 03/20/2016 EGD WITH BIOPSY performed by David Dejesus MD at [facility] ENDOSCOPY PRO UPPER GI ENDOSCOPY, BIOPSY N/A 11/22/2018 EGD WITH BIOPSY (WRVU 2.49) performed by David Dejesus MD at [facility] ENDOSCOPY PRO UPPER GI ENDOSCOPY, BIOPSY N/A 03/01/2020 UPPER GASTROINTESTINAL ENDOSCOPY,WITH BIOPSY SINGLE OR MULTIPLE (WRVU 2.49) performed by David Dejesus MD at [facility] ENDOSCOPY PRO UPPER GI ENDOSCOPY, BIOPSY N/A 09/23/2021 EGD WITH BIOPSY (WRVU 2.49) performed by David Dejesus MD at [facility] ENDOSCOPY PRO UPPER GI ENDOSCOPY, BIOPSY N/A 03/31/2022 EGD WITH BIOPSY (WRVU 2.49) performed by David Dejesus MD at [facility] ENDOSCOPY PRO UPPER GI ENDOSCOPY, BIOPSY N/A 07/03/2022 EGD WITH BIOPSY (WRVU 2.49) performed by David Dejesus MD at [facility] ENDOSCOPY PRO UPPER GI ENDOSCOPY, DIAGNOSTIC N/A 04/03/2014 EGD, UPPER GI ENDOSCOPY performed by David Dejesus MD at [facility] ENDOSCOPY PRO UPPER GI ENDOSCOPY, DIAGNOSTIC N/A 03/01/2020 EGD, UPPER GI ENDOSCOPY performed by David Dejesus MD at [facility] ENDOSCOPY PRO UPPER GI ENDOSCOPY, DIAGNOSTIC N/A 09/09/2022 EGD, UPPER GI ENDOSCOPY (WRVU 2.09) performed by Ayo Russ MD at [facility] MAIN OR Social history and habits: [...] 04/26/2024 8:30 AM [place] [phone] Gavin Carrillo MD [facility] [place] [address] 06/05/2024 1:20 PM EST Office Visit Cardiology at [address] [phone] Milagros Hernandez MD [facility] [place] [address] Scheduled Orders Name Type Priority Associated Diagnoses [...] Gastrostomy tube exchange. Indication for Procedure: Per Binta Hastingst Johanny Irving is a 63 y.o. female [...] Patient's reports that she was evaluated at [facility] for possible PNA, and [...] 09/16 due to occlusion. Patient traveled to [place] where tube could not be flushed. Exchanged [...] removed over the wire. ??A new 16 Argentine balloon retained nonlow-profile gastrostomy tube was then [...] esophagus documented in this encounter Care Teams Aircraft Log Clerk Relationship Specialty Start Date End Date Ana Gillespie APRN [address] [place] [address] PCP - General Family Medicine 02/03/19 documented as of this encounter
--- OUTSIDE RECORDS SUMMARY | 2024-04-19 22:53 | XMS_ITS | Encounter Summary ---
[place] [address] Care Team Providers Care Bearing Machine Operator Name Role Phone Ana Gillespie VAUGHN Primary Care Provider [phone] Reason for Visit * Reason Onset Date Comments Prior Authorization 07/21/2023 Encounter Details Date Type Department Care Team (Late st Contact Info) Description 07/21/2023 Telephone [place] [address] Radha Urena Prior Authorization Social History Tobacco [...] 04/26/2024 8:30 AM [place] [address] Gavin Carrillo MD [facility] [place] [address] 06/05/2024 1:20 PM EST Office Visit Cardiology at [address] [address] Milagros Hernandez MD [facility] [place] [address] Scheduled Procedures Name Priority Associated Diagnoses Date/Ti me EGD, UPPER GI ENDOSCOPY (WRV U 2.09) Peptic stricture of esophagus documented as of this encounter Visit Diagnoses Not on filedocumented in this encounter Care Teams Bearing Machine Operator Relationship Specialty Start Date End Date Ana Gillespie APRN [address] [place] [address] PCP - General Family Medicine 02/03/19 documented as of this encounter
--- OUTSIDE RECORDS SUMMARY | 2024-04-19 22:53 | XMS_ITS | Encounter Summary ---
Author Organization [facility] Address [facility] [place] [address] Care Team Providers Care Clerical Car Checker Name Role Phone Ana Gillespie VAUGHN Primary Care Provider [phone] Encounter Details Date Type Department Care Team (Late st Contact Info) Description 08/02/2023 11:00 AM EDT - 08/02/2023 12:00 PM EDT Surgery [place] [phone] David Dejesus MD [facility] [place] [address] EGD,WITH DILATION ESOPHAGUS WITH BALLOON,< 30 MM [...] the day after the procedure, use an rhyl-trk-fylrfpd spray to numb your throat. Sucking on [...] occurs, please contact your Doctor. Please call [phone] before 8pm Mon-Fri with problems, questions or concerns. If you call after 8pm or on weekends, call the Hospital at [phone] and ask to speak to the Street Light Wirer continuous improvement black belt and the automatic winder operator will contact that person for you. When should you call for help? Call [phone] anytime you think you may need emergency [...] problems. Where can you learn more? [facility] View your After Visit Summary and more online at [email or web address] If you would like to provide feedback about your hospital experience, please call the Office of Patient and Family Relations at . If you have received this After Visit Summary in error, please immediately return it in person to the department, or notify the [facility] Privacy Office by calling toll free at between the hours of 8AM and 5PM to arrange for our retrieval of the documents at no cost to you. Content Version: 12.2 ?? [id number] sickweather. Care instructions adapted under license by [facility]. If you have questions about a medical condition or this instruction, always ask your healthcare professional. [employer] disclaims any warranty or liability for your [...] the day after the procedure, use an wpve-sje-aslyiaw spray to numb your throat. Sucking on [...] occurs, please contact your Doctor. Please call [phone] before 8pm Mon-Fri with problems, questions or concerns. If you call after 8pm or on weekends, call the Hospital at [phone] and ask to speak to the Street Light Wire[employer] continuous improvement black belt and the automatic winder operator will contact that person for you. When should you call for help? Call [phone] anytime you think you may need emergency [...] problems. Where can you learn more? [facility] View your After Visit Summary and more online at [email or web address] If you would like to provide feedback about your hospital experience, please call the Office of Patient and Family Relations at . If you have received this After Visit Summary in error, please immediately return it in person to the department, or notify the [facility] Privacy Office by calling toll free at between the hours of 8AM and 5PM to arrange for our retrieval of the documents at no cost to you. Content Version: 12.2 ?? [phone] sickweather. Care instructions adapted under license by [facility]. If you have questions about a medical condition or this instruction, always ask your healthcare professional. [employer] disclaims any warranty or liability for your [...] meter kit. 1 each 0 12/14/2014 Insulin Warriors Mark, Disposable, (BD INSULIN PEN NEEDLE UF MINI) [...] 04/26/2024 8:30 AM EST [place] [phone] Gavin Carrillo MD [facility] [place] [address] 06/05/2024 1:20 PM EST Office Visit Cardiology at [address] [phone] Milagros Hernandez MD [facility] [place] [address] Scheduled Procedures Name Priority Associated Diagnoses Date/Ti me EGD, UPPER GI ENDOSCOPY (WRV U 2.09) Peptic stricture of esophagus documented as of this encounter Procedures Procedure Name Priority Date/Time Associated Diagnosis Comments Up Gi Endoscopy, Ball Dil, 30Mm (00832) 08/02/2023 11:01 AM EDT Peptic stricture of esophagus UPPER GI ENDOSCOPY Routine 08/02/2023 10 :49 AM EDT POCT GLUCOSE Routine 08/02/2023 9:54 AM EDT documented in this encounter Results * UPPER GI ENDOSCOPY (08/02/2023 10:49 AM EDT) [facility] UPPER GI ENDOSCOPY [facility] Endoscopy Procedure Date: 08/02/2023 10:49 AM ? Patient Name: Jennifer Irving ? N: [id number] ? Date of : 1960 ? Age: 63 ? Order #: [id number] ? Instrument Name: [id number] ? Procedure: ? Upper GI endoscopy Indications: ? Peptic Stricture Providers: ? David Dejesus MD, Parminder Juarez. ? Ayo Mao, ? Tapan Camargo Referring [...] 08/02/2023 10:4 9 AM EDT Ana Gillespie LICENSED VETERINARY TECHNICIAN GENERAL SURGICAL ORD ERABLES [employer]ATION * POCT Glucose (08/02/2023 9:54 AM EDT) Glucose, POC 81 65 - 199 mg/dL [facility] Comment: Supplemental ranges: <140 mg/dL before meals <180 mg/dL all other times of the day Blood 08/02/2023 9:54 AM EDT 08/02/2023 9:54 AM EDT David Dejesus MD POINT OF CARE TEST ORDERABLES [facility] [place] [address] documented in this encounter Visit Diagnoses Diagnosis [...] CRNA) documented in this encounter Care Teams Clerical Car Checker Relationship Specialty Start Date End Date Ana Gillespie APRN [address] [place] [address] PCP - General Family Medicine 02/03/19 documented as of this encounter
--- OUTSIDE RECORDS SUMMARY | 2024-04-19 22:53 | XMS_ITS | Encounter Summary ---
Author Organization [facility] [place] [address] Care Team Providers Care Throw Out Clerk Name Role Phone Ana Gillespie VAUGHN Primary Care Provider [phone] Reason for Referral * Diagnostic Test (Routine) - Closed Specialty Diagnoses / Procedures Referred By Esperanza t Referred To Contact Radiology Diagnoses Problem with gastrostomy tube Farrell's esophagus with high grade dysplasia Farrell's esophagus with low grade dysplasia Procedures IR G-Tube Check/Change Hang Cooper PA [facility] [place] [address] [place] [address] Referral ID Status Reason Start Date Expiration Date V isits Requested Visits Authorized [id number] Closed Specialty Service Requested 09/23/2023 03/25/2025 1 1 Reason for Visit * Diagnostic Test (Routine) - Closed Specialty Diagnoses / Procedures Referred By Esperanza t Referred To Contact Radiology Diagnoses Problem with gastrostomy tube Farrell's esophagus with high grade dysplasia Farrell's esophagus with low grade dysplasia Procedures IR G-Tube Check/Change Hang Cooper PA [facility] [place] [address] [place] [address] Referral ID Status Reason Start Date Expiration Date V isits Requested Visits Authorized [id number] Closed Specialty Service Requested 09/23/2023 03/25/2025 1 1 Encounter Details Date Type Department Care Team (Latest Contact Info) Description 10/14/2023 10:11 AM EDT - 10/14/2023 11:59 PM EDT Hospital [place] [address] Geronimo Chambers, [facility] [place] [address] Problem with gastrostomy tube; Farrell's esophagus with [...] meter kit. 1 each 0 12/14/2014 Insulin Canal [place], Disposable, (BD INSULIN PEN NEEDLE UF MINI) [...] of : 1960 AGE: 63 y.o. Address: [address] [address] (home) Mobile: Telephone Information: Referring Provider: Hang Cooper REASON FOR VISIT: Order Questions Answers Where will study be performed? [facility] Radiology [120] To be scheduled Next [...] reports that she was evaluated at [facility] for possible PNA, and the G-tube [...] on 09/16 due to occlusion. Patienttraveled to [place] where tube could not be flushed. Exchanged [...] IR G-Tube Check/Change 11/27/2022 Hang Cooper PA [facility] INTERVENTIONL RAD IR G-TUBE CHECK/CHANGE 03/10/2023 IR G-Tube Check/Change 03/10/2023 Geronimo Chambers DO [facility] INTERVENTIONL RAD IR G-TUBE CHECK/CHANGE 04/06/2023 IR G-Tube Check/Change 04/06/2023 Gavin Carrillo MD [facility] INTERVENTIONL RAD IR G-TUBE CHECK/CHANGE 05/09/2023 IR G-Tube Check/Change [facility] INTERVENTIONL RAD IR G-TUBE CHECK/CHANGE 07/09/2023 IR G-Tube Check/Change [facility] INTERVENTIONL RAD IR G-TUBE CHECK/CHANGE 09/17/2023 IR G-Tube Check/Change 09/17/2023 Hang Cooper PA [facility] INTERVENTIONL RAD IR G-TUBE PLACEMENT 09/11/2022 IR G-Tube Placement 09/11/2022 Moustapha Hart MD [facility] INTERVENTIONL RAD IR SUTURE RELEASE 09/25/2022 IR Suture Release 09/25/2022 Yoselin Ghosh PA [facility] INTERVENTIONL RAD PERCUTANEOUS GASTROSTOMY N/A 09/11/2022 PERCUTANEOUS GASTROSTOMY performed by Aiden Flores MD at [facility] CATY PRO COLONOSCOPY, BIOPSY N/A 03/20/2016 COLONOSCOPY FLEXIBLE, WITH BX performed by David Dejesus MD at [facility] ENDOSCOPY PRO COLONOSCOPY, DIAGNOSTIC N/A 03/01/2020 COLONOSCOPY, DIAGNOSTIC performed by David Dejesus MD at [facility] ENDOSCOPY PRO ENDOSCOPIC US EXAM, ESOPH N/A 03/31/2022 UPPER EUS- ENDOSCOPIC ULTRASOUND performed by David Dejesus MD at [facility] ENDOSCOPY PRO UP GI ENDOSCOPY, BALL DIL, 30MM N/A 12/24/2022 EGD,WITH DILATION ESOPHAGUS WITH BALLOON,< 30 MM (WRVU 2.67) performed by David Dejesus MDat [facility] ENDOSCOPY PRO UP GI ENDOSCOPY, BALL DIL, 30MM N/A 01/12/2023 EGD,WITH DILATION ESOPHAGUS WITH BALLOON,< 30 MM (WRVU 2.67) performed by David Dejesus [facility] ENDOSCOPY PRO UP GI ENDOSCOPY, BALL DIL, 30MM N/A 02/26/2023 EGD,WITH DILATION ESOPHAGUS WITH BALLOON,< 30 MM (WRVU 2.67) performed by David Dejesus [facility] ENDOSCOPY PRO UP GI ENDOSCOPY, BALL DIL, 30MM N/A 03/16/2023 EGD,WITH DILATION ESOPHAGUS WITH BALLOON,< 30 MM (WRVU 2.67) performed by David Dejesus [facility] ENDOSCOPY PRO UP GI ENDOSCOPY, BALL DIL, 30MM N/A 03/30/2023 EGD,WITH DILATION ESOPHAGUS WITH BALLOON,< 30 MM (WRVU 2.67) performed by David Dejesus [facility] ENDOSCOPY PRO UP GI ENDOSCOPY, BALL DIL, 30MM N/A 04/30/2023 EGD,WITH DILATION ESOPHAGUS WITH BALLOON,< 30 MM (WRVU 2.67) performed by David Dejesus [facility] ENDOSCOPY PRO UP GI ENDOSCOPY, BALL DIL, 30MM N/A 06/01/2023 EGD,WITH DILATION ESOPHAGUS WITH BALLOON,< 30 MM (WRVU 2.67) performed by David Dejesus [facility] ENDOSCOPY PRO UP GI ENDOSCOPY, BALL DIL, 30MM N/A 08/02/2023 EGD,WITH DILATION ESOPHAGUS WITH BALLOON,< 30 MM (WRVU 2.67) performed by David Dejesus [facility] ENDOSCOPY PRO UP GI ENDOSCOPY, DILATN W GUIDE N/A 10/07/2023 EGD-ESOPHOGEAL DILATATION OVER GUIDE WIRE (WRVU 2.91) performed by David Dejesus MD at [facility] ENDOSCOPY PRO UPPER GI ENDOSCOPY, BIOPSY N/A 04/03/2014 UPPER GASTROINTESTINAL ENDOSCOPY,WITH BIOPSY SINGLE OR MULTIPLE performed by David Dejesus [facility] ENDOSCOPY PRO UPPER GI ENDOSCOPY, BIOPSY N/A 03/20/2016 EGD WITH BIOPSY performed by David Dejesus MD at [facility] ENDOSCOPY PRO UPPER GI ENDOSCOPY, BIOPSY N/A 11/22/2018 EGD WITH BIOPSY (WRVU 2.49) performed by David Dejesus MD at [facility] ENDOSCOPY PRO UPPER GI ENDOSCOPY, BIOPSY N/A 03/01/2020 UPPER GASTROINTESTINAL ENDOSCOPY,WITH BIOPSY SINGLE OR MULTIPLE (WRVU 2.49) performed by David Dejesus MD at [facility] ENDOSCOPY PRO UPPER GI ENDOSCOPY, BIOPSY N/A 09/23/2021 EGD WITH BIOPSY (WRVU 2.49) performed by David Dejesus MD at [facility] ENDOSCOPY PRO UPPER GI ENDOSCOPY, BIOPSY N/A 03/31/2022 EGD WITH BIOPSY (WRVU 2.49) performed by David Dejesus MD at [facility] ENDOSCOPY PRO UPPER GI ENDOSCOPY, BIOPSY N/A 07/03/2022 EGD WITH BIOPSY (WRVU 2.49) performed by David Dejesus MD at [facility] ENDOSCOPY PRO UPPER GI ENDOSCOPY, DIAGNOSTIC N/A 04/03/2014 EGD, UPPER GI ENDOSCOPY performed by David Dejesus MD at [facility] ENDOSCOPY PRO UPPER GI ENDOSCOPY, DIAGNOSTIC N/A 03/01/2020 EGD, UPPER GI ENDOSCOPY performed by David Dejesus MD at [facility] ENDOSCOPY PRO UPPER GI ENDOSCOPY, DIAGNOSTIC N/A 09/09/2022 EGD, UPPER GI ENDOSCOPY (WRVU 2.09) performed by Ayo Russ MD at [facility] MAIN OR Medications: Current Outpatient Medications [...] daily. 180 tablet 3 Blood Sugar Diagnostic (Postmaster ULTRA TEST) Strip 1 each by Other [...] glucose meter kit. 1 each 0 Insulin Canal [place], Disposable, (BD INSULIN PEN NEEDLE UF MINI) 31 x 3/16 Needle 1 Device by [facility] [...] reports that she was evaluated at [facility] for possible PNA, and the G-tube [...] on 09/16 due to occlusion. Patienttraveled to [place] where tube could not be flushed. Exchanged [...] tube removed over the wire. A new16 [place] balloon retained nonlow-profile gastrostomy tube was then [...] 04/26/2024 8:30 AM [place] [address] Gavin Carrillo MD [facility] [place] [address] 06/05/2024 1:20 PM EST Office Visit Cardiology at [address] [phone] Milagros Hernandez MD [facility] [place] [address] Scheduled Procedures Name Priority Associated Diagnoses Date/Ti [...] reports that she was evaluated at [facility] for possible PNA, and the G-tube [...] 09/16 due to occlusion. Patient traveled to [place] where tube could not be flushed. Exchanged [...] removed over the wire. ??A new 16 [place] balloon retained nonlow-profile gastrostomy tube was then [...] on Betty 10/14/23 at 1113, Until Betty /10/31 at 1250, Pain, For use in Interventional Radiology (IR) only for procedure with direct provider supervision and verbal order., Angio/IR (Intra-Procedure), Routine Given 10/14/2023 12:30 PM EDT 6 mLs documented in this encounter Care Teams Throw Out Clerk Relationship Specialty Start Date End Date Ana Gillespie APRN [address] [place] [address] PCP - General Family Medicine 02/03/19 documented as of this encounter
--- OUTSIDE RECORDS SUMMARY | 2024-04-19 22:53 | XMS_ITS | Encounter Summary ---
Author Organization [facility] Address [facility] [place] [address] Care Team Providers Care Materials Engineer Name Role Phone Ana Gillespie VAUGHN Primary Care Provider [phone] Encounter Details Date Type Department Care Team (Late st Contact Info) Description 10/05/2023 Telephone Pulmonology at [place] [phone] Niru Mary Social History Tobacco Use Types [...] AM EST Appointment Radiology at [place] [phone] Gavin Carrillo MD [facility] [place] [address] 06/05/2024 1:20 PM EST Office Visit Cardiology at [address] [address] iMlagros Hernandez MD [facility] [place] [address] Scheduled Procedures Name Priority Associated Diagnoses Date/Ti me EGD, UPPER GI ENDOSCOPY (WRV U 2.09) Peptic stricture of esophagus documented as of this encounter Visit Diagnoses Not on filedocumented in this encounter Care Teams Materials Engineer Relationship Specialty Start Date End Date Ana Gillespie APRN [address] [place] [address] PCP - General Family Medicine 02/03/19 documented as of this encounter
--- OUTSIDE RECORDS SUMMARY | 2024-04-19 22:53 | XMS_ITS | Encounter Summary ---
Author Organization [facility] [place] [address] Care Team Providers Care Annealer Helper Name Role Phone Ana Gillespie VAUGHN Primary Care Provider [phone] Encounter Details Date Type Department Care Team (Latest Contact Info) Description 09/17/2023 11:55 AM EDT - 09/17/2023 11:59 PM EDT Hospital [place] [phone] Geronimo Chambers, [facility] [place] [address] Discharge Disposition: Home Social History Tobacco Use [...] meter kit. 1 each 0 12/14/2014 Insulin Bruner, Disposable, (BD INSULIN PEN NEEDLE UF MINI) [...] of : 1960 AGE: 63 y.o. Address: [address] [address] (home) Mobile: Telephone Information: Referring Provider: Geronimo [...] 04/26/2024 8:30 AM [place] [phone] Gavin Carrillo MD [facility] [place] [address] 06/05/2024 1:20 PM EST Office Visit Cardiology at [address] [place] [address] Milagros Hernandez MD [facility] [place] [address] Scheduled Procedures Name Priority Associated Diagnoses Date/Ti [...] mLs documented in this encounter Care Teams Annealer Helper Relationship Specialty Start Date End Date Ana Gillespie APRN [address] [place] [address] PCP - General Family Medicine 02/03/19 documented as of this encounter
--- OUTSIDE RECORDS SUMMARY | 2024-04-19 22:53 | XMS_ITS | Encounter Summary ---
Author Organization [facility] [place] [address] Care Team Providers Care Special Education Paraprofessional Name Role Phone Ana Gillespie APRN Primary Care Provider [phone] Encounter Details Date Type Department Care Team (Late st Contact Info) Description 08/11/2023 Telephone [place] [address] Parris Maravilla Social History Tobacco [...] it can be handled by: [facility] [employer] documented in this encounter Plan of Treatment Upcoming Encounters Date Type Department Care Team (Late st Contact Info) Description 04/26/2024 8:30 AM EST Appointment [place] [address] Gavin Carrillo MD [facility] [place] [address] 06/05/2024 1:20 PM EST Office Visit Cardiology at [address] [phone] Milagros Hernandez MD [facility] [place] [address] Scheduled Procedures Name Priority Associated Diagnoses Date/Ti me EGD, UPPER GI ENDOSCOPY (WRV U 2.09) Peptic stricture of esophagus documented as of this encounter Visit Diagnoses Not on filedocumented in this encounter Care Teams Special Education Paraprofessional Relationship Specialty Start Date End Date Ana Gillespie APRN [address] [place] [address] PCP - General Family Medicine 02/03/19 documented as of this encounter
--- OUTSIDE RECORDS SUMMARY | 2024-04-19 22:53 | XMS_ITS | Encounter Summary ---
Author Organization [facility] Address [facility] Marly petersen [place] [id number] Care Team Providers Care Delivery Driver Assistant Name Role Phone Ana Gillespie APRN [...] 04/26/2024 8:30 AM EST Appointment Radiology at [place] [phone] Gavin Carrillo MD [facility] [place] [address] 06/05/2024 1:20 PM EST Office Visit Cardiology at [address] [phone] Milagros Hernandez MD [facility] [place] [address] Scheduled Procedures Name Priority Associated Diagnoses Date/Ti me EGD, UPPER GI ENDOSCOPY (WRV U 2.09) Peptic stricture of esophagus documented as of this encounter Visit Diagnoses Not on filedocumented in this encounter Care Teams Delivery Driver Assistant Relationship Specialty Start Date End Date Ana Gillespie APRN [address] [place] [address] PCP - General Family Medicine 02/03/19 documented as of this encounter
--- OUTSIDE RECORDS SUMMARY | 2024-04-19 22:53 | XMS_ITS | Encounter Summary ---
Author Organization [facility] Address [facility] [place] [address] Care Team Providers Care Residential Real Estate Appraiser Name Role Phone Ana Gillespie APRN Primary Care Provider [phone] Encounter Details Date Type Department Care Team (Late st Contact Info) Description 10/07/2023 Orders Only Gastroenterology at [place] [phone] David Dejesus MD [facility] [place] [address] Social History Tobacco Use Types Packs/Day Years [...] 8:30 AM EST Appointment [place] [address] Gavin Carrillo MD [facility] [place] [address] 06/05/2024 1:20 PM EST Office Visit Cardiology at [address] [address] Milagros Hernandez MD [facility] [place] [address] Scheduled Procedures Name Priority Associated Diagnoses Date/Ti me EGD, UPPER GI ENDOSCOPY (WRV U 2.09) Peptic stricture of esophagus documented as of this encounter Visit Diagnoses Not on filedocumented in this encounter Care Teams Residential Real Estate Appraiser Relationship Specialty Start Date End Date Ana Gillespie APRN [address] [place] [address] PCP - General Family Medicine 02/03/19 documented as of this encounter
--- OUTSIDE RECORDS SUMMARY | 2024-04-19 22:53 | XMS_ITS | Encounter Summary ---
Author Organization [facility] Address [facility] [place] [address] Care Team Providers Care Warp Dyeing Vat Tender Name Role Phone Ana Gillespie VAUGHN Primary Care Provider [phone] Encounter Details Date Type Department Care Team (Latest Contact Info) Description 11/05/2023 6:41 AM EDT - 11/05/2023 9:54 AM EDT Hospital Encounter [place] [address] David Dejesus MD [facility] [place] [address] Discharge Disposition: Home Social History Tobacco Use [...] better as expected. Wednesday-Wednesday Same Day Endo [phone] Otherwise contact [phone] and ask to speak to the electrician helper dish person Follow-up care is a fam part of [...] meter kit. 1 each 0 12/14/2014 Insulin Ferris, Disposable, (BD INSULIN PEN NEEDLE UF MINI) 31 x 07/23 NeedleIndications:Di abetes mellitus type 2, uncontrolled 1 Device by [facility]Non-Drug; Combo Route) route 3 times daily as [...] escorted out of department via wheelchair with /route delivery driver. documented in this encounter H&P [...] glucose meter kit. 1 each 0 Insulin Ferris, Disposable, (BD INSULIN PEN NEEDLE UF MINI) 31 x 3/16 Needle 1 Device by [facility]Non-Drug; Combo Route) route 3 times daily as [...] 04/26/2024 8:30 AM EST [place] [address] Gavin Carrillo MD [facility] INTERVENT[place] [address] 06/05/2024 1:20 PM EST Office Visit Cardiology at [address] [address] Milagros Hernandez MD [facility] [place] [address] Scheduled Procedures Name Priority Associated Diagnoses Date/Ti me EGD, UPPER GI ENDOSCOPY (WRV U 2.09) Peptic stricture of esophagus documented as of this encounter Procedures Procedure Name Priority Date/Time Associated Diagnosis Comments Up Gi Endoscopy, Dilatn W Guide (65687) 11/05/2023 8:34 AM EDT Peptic stricture of esophagus Dilate Esophagus (56497) 11/05/2023 8:34 AM EDT Peptic stricture of esophagus POCT GLUCOSE Routine 11/05/2023 7:50 AM EDT documented in this encounter Results * POCT Glucose (11/05/2023 7:50 AM EDT) Glucose, POC 86 65 - 199 mg/dL [facility] Comment: Supplemental ranges: <140 mg/dL before meals <180 mg/dL all other times of the day Blood 11/05/2023 7:50 AM EDT 11/05/2023 7:50 AM EDT David Dejesus MD POINT OF CARE TEST ORDERABLES [facility] [place] [address] documented in this encounter Visit Diagnoses Not [...] CRNA) documented in this encounter Care Teams Warp Dyeing Vat Tender Relationship Specialty Start Date End Date Ana Gillespie APRN [address] [place] [address] PCP - General Family Medicine 02/03/19 documented as of this encounter
--- OUTSIDE RECORDS SUMMARY | 2024-04-19 22:53 | XMS_ITS | Encounter Summary ---
Author Organization [facility] Address [facility] [place] [address] Care Team Providers Care Brakes Inspector Name Role Phone Ana Gillespie VAUGHN Primary Care Provider [phone] Encounter Details Date Type Department Care Team (Late st Contact Info) Description 08/25/2023 Telephone Pulmonology at [place] [phone] Niru Mary Social History Tobacco Use Types [...] 04/26/2024 8:30 AM EST Appointment Radiology at [place] [phone] Gavin Carrillo MD [facility] [place] [address] 06/05/2024 1:20 PM EST Office Visit Cardiology at [address] [phone] Milagros Hernandez MD [facility] [place] [address] Scheduled Procedures Name Priority Associated Diagnoses Date/Ti me EGD, UPPER GI ENDOSCOPY (WRV U 2.09) Peptic stricture of esophagus documented as of this encounter Visit Diagnoses Not on filedocumented in this encounter Care Teams Brakes Inspector Relationship Specialty Start Date End Date Ana Gillespie APRN [address] [place] [address] PCP - General Family Medicine 02/03/19 documented as of this encounter
--- OUTSIDE RECORDS SUMMARY | 2024-04-19 22:53 | XMS_ITS | Encounter Summary ---
Author Organization [facility] [place] [address] Care Team Providers Care Heel Seat Fitter Name Role Phone Ana Glilespie VAUGHN Primary Care Provider [phone] Encounter Details Date Type Department Care Team (Late st Contact Info) Description 10/27/2023 [facility]phone [facility] [place] [phone] Parris Maravilla Social History Tobacco Use Types [...] - 10/27/2023 11:43 AM EDT Jennifer Irving [phone] Diagnosis/Indication: petic stricture - follow-up dilation in [...] procedure? No You must have a responsible republican who will drive you to your procedure, stay on campus for the entire duration of your procedure, and drive you home from your procedure. Who will likely be your shuttle bus driver for the procedure? *Please Verify [...] 04/26/2024 8:30 AM [place] [address] Gavin Carrillo MD [facility] [place] [address] 06/05/2024 1:20 PM EST Office Visit Cardiology at [address] [address] Milagros Hernandez MD [facility] [place] [address] Scheduled Procedures Name Priority Associated Diagnoses Date/Ti me EGD, UPPER GI ENDOSCOPY (WRV U 2.09) Peptic stricture of esophagus documented as of this encounter Visit Diagnoses Not on filedocumented in this encounter Care Teams Heel Seat Fitter Relationship Specialty Start Date End Date Ana Gillespie APRN [address] [place] [address] PCP - General Family Medicine 02/03/19 documented as of this encounter
--- OUTSIDE RECORDS SUMMARY | 2024-04-19 22:53 | XMS_ITS | Encounter Summary ---
Author Organization [facility] [place] [address] Care Team Providers Care Math Interventionist Name Role Phone Ana Gillespie VAUGHN Primary Care Provider [phone] Encounter Details Date Type Department Care Team (Late st Contact Info) Description 09/08/2023 Telephone [place] [address] Parris Maravilla Social History Tobacco Use Types [...] returned, it can be handled by: Endo Youth Accommodation Support Worker please park to me documented in this encounter Plan of Treatment Upcoming Encounters Date Type Department Care Team (Late st Contact Info) Description 04/26/2024 8:30 AM EST Appointment [place] [phone] Gavin Carrillo MD [facility] DR INTERVENTIONAL [place] [address] 06/05/2024 1:20 PM EST Office Visit Cardiology at [address] [address] Milagros Hernandez MD [facility] [place] [address] Scheduled Procedures Name Priority Associated Diagnoses Date/Ti me EGD, UPPER GI ENDOSCOPY (WRV U 2.09) Peptic stricture of esophagus documented as of this encounter Visit Diagnoses Not on filedocumented in this encounter Care Teams Math Interventionist Relationship Specialty Start Date End Date Ana Gillespie APRN [address] [place] [address] PCP - General Family Medicine 02/03/19 documented as of this encounter
--- OUTSIDE RECORDS SUMMARY | 2024-04-19 22:54 | XMS_ITS | Encounter Summary ---
Author Organization [facility] Address [facility] [place] [address] Care Team Providers Care Supply Chain Specialist Name Role Phone Ana Gillespie VAUGHN Primary Care Provider [phone] Encounter Details Date Type Department Care Team (Late st Contact Info) Description 05/08/2023 [place] [phone] Nisha Chavez MD [facility] DR [place] [address] Social History Tobacco Use Types Packs/Day Years [...] tube was dislodged andcare was sought at [facility]. A barba catheter was placed into [...] through the barba.He should be able to supervisor opening and picking a compatible syringe at his closest hospital. [...] 04/26/2024 8:30 AM EST Appointment Radiology at [place] [phone] [facility] [place] [address] 06/05/2024 1:20 PM EST Office Visit Cardiology at [address] [phone] [facility] [place] [address] Scheduled Procedures Name Priority Associated Diagnoses Date/Ti me EGD, UPPER GI ENDOSCOPY (WRV U 2.09) Peptic stricture of esophagus documented as of this encounter Visit Diagnoses Not on filedocumented in this encounter Care Teams Supply Chain Specialist Relationship Specialty Start Date End Date Ana Gillespie APRN [address] [place] [address] PCP - General Family Medicine 02/03/19 documented as of this encounter
--- OUTSIDE RECORDS SUMMARY | 2024-04-19 22:54 | XMS_ITS | Encounter Summary ---
Author Organization [facility] Address [facility] [place] [address] Care Team Providers Care Maintenance Engineer Name Role Phone Ana Gillespie APRN Primary Care Provider [phone] Encounter Details Date Type Department Care Team (Late st Contact Info) Description 07/02/2023 [place] [phone] Zhang Pope MD [facility] [place] [address] Social History Tobacco Use Types Packs/Day Years [...] Referring Provider: Dr. Tae Abrams Patient Location: [facility] Presenting Symptoms per OSH: Jennifer Irving [...] Jan 2023. The patient presented today to [facility] with cough and shortness of breath. The working diagnosis at [facility] is a COPD exacerbation. Cardiology was contacted as the patient's troponin had increased over three hours from 203 to 434. The patient has sharp generalized chest pain that occurs when she coughs but does not have chest pressure. ECG is similar to previous. The patient is on BiPAP and the provider at [facility] plans to admit her locally with [...] had a TTE performed November 2022 at [facility] with LVEF that nearly completely recovered. [...] in the patient condition. Zhang Pope MD Certified Flight Instructor documented in this encounter Plan of Treatment Upcoming Encounters Date Type Department Care Team (Late st Contact Info) Description 04/26/2024 8:30 AM EST [place] [address] Gavin Carrillo MD [facility] [place] [address] 06/05/2024 1:20 PM EST Office Visit Cardiology at [address] [phone] Milagros Hernandez MD [facility] [place] [address] Scheduled Procedures Name Priority Associated Diagnoses Date/Ti me EGD, UPPER GI ENDOSCOPY (WRV U 2.09) Peptic stricture of esophagus documented as of this encounter Visit Diagnoses Not on filedocumented in this encounter Care Teams Maintenance Engineer Relationship Specialty Start Date End Date Ana Gillespie APRN [address] [place] [address] PCP - General Family Medicine 02/03/19 documented as of this encounter
--- OUTSIDE RECORDS SUMMARY | 2024-04-19 22:54 | XMS_ITS | Encounter Summary ---
Author Organization [facility] [place] [address] Care Team Providers Care Sponsorship Coordinator Name Role Phone Ana Gillespie VAUGHN Primary Care Provider [phone] Encounter Details Date Type Department Care Team (Late st Contact Info) Description 04/19/2023 Telephone [place] [phone] Meka Vera Social History Tobacco Use Types [...] 04/26/2024 8:30 AM [place] [phone] Gavin Carrillo MD [facility] [place] [address] 06/05/2024 1:20 PM EST Office Visit Cardiology at [address] [address] Milagros Hernandez MD [facility] [place] [address] Scheduled Procedures Name Priority Associated Diagnoses Date/Ti me EGD, UPPER GI ENDOSCOPY (WRV U 2.09) Peptic stricture of esophagus documented as of this encounter Visit Diagnoses Not on filedocumented in this encounter Care Teams Sponsorship Coordinator Relationship Specialty Start Date End Date Ana Gillespie APRN [address] [place] [address] PCP - General Family Medicine 02/03/19 documented as of this encounter
--- OUTSIDE RECORDS SUMMARY | 2024-04-19 22:54 | XMS_ITS | Encounter Summary ---
Author Organization [facility] Address [facility] [place] [address] Care Team Providers Care Deployment Technician Name Role Phone Ana Gillespie APRN Primary Care Provider [phone] Encounter Details Date Type Department Care Team (Late st Contact Info) Description 05/25/2023 Orders Only Gastroenterology at [place] [phone] David Dejesus MD [facility] [place] [address] Primary parkinsonism Social History Tobacco Use Types [...] 04/26/2024 8:30 AM EST [place] [address] Gavin Carrillo MD [facility] [place] [address] 06/05/2024 1:20 PM EST Office Visit Cardiology at [address] [phone] Milagros Hernandez MD [facility] [place] [address] Scheduled Procedures Name Priority Associated Diagnoses Date/Ti me EGD, UPPER GI ENDOSCOPY (WRV U 2.09) Peptic stricture of esophagus documented as of this encounter Visit Diagnoses Diagnosis Primary parkinsonism Paralysis agitans documented in this encounter Care Teams Deployment Technician Relationship Specialty Start Date End Date Ana Gillespie APRN [address] [place] [address] PCP - General Family Medicine 02/03/19 documented as of this encounter
--- OUTSIDE RECORDS SUMMARY | 2024-04-19 22:54 | XMS_ITS | Encounter Summary ---
Author Organization [facility] [address] Care Team Providers Care Child Nutrition Director Name Role Phone Ana Gillespie APRN Primary Care Provider [phone] Encounter Details Date Type Department Care Team (Latest Contact Info) Description 04/12/2023 9:20 AM EST TH Visit (TeleHealth) Cardiology at [address] [address] Milagros Hernandez MD [facility] [place] [address] Stress-induced cardiomyopathy Social History Tobacco Use Types [...] from the original note were not included. [facility] [place] [address] CARDIOLOGY OUTPATIENT NOTE PRIMARY CARE PROVIDER: Ana [...] glucose meter kit. 1 each 0 Insulin Moro, Disposable, (BD INSULIN PEN NEEDLE UF MINI) [...] esophagus and esophageal stricture. She established with nh in Cardiology clinic in Jan 2023 and presents today for planned follow up. This visit is a Telehealth Visit as the patient was unable to safely make the visit in person due to inclement weather. The patient was located in [place] at the time of the visit. We [...] stricture dilations and unfortunately was admitted to [facility] at the end of February shortly after [...] next visit. Milagros Hernandez MD Cardiovascular Medicine [facility] 04/12/2023 documented in this encounter Plan of Treatment Upcoming Encounters Date Type Department Care Team (Late st Contact Info) Description 04/26/2024 8:30 AM EST [place] [address] Gavin Carrillo MD [facility] [place] [address] 06/05/2024 1:20 PM EST Office Visit Cardiology at [address] [address] Milagros Hernandez MD [facility] [place] [address] Scheduled Procedures Name Priority Associated Diagnoses Date/Ti me EGD, UPPER GI ENDOSCOPY (WRV U 2.09) Peptic stricture of esophagus documented as of this encounter Visit Diagnoses Diagnosis Stress-induced cardiomyopathy Takotsubo syndrome documented in this encounter Care Teams Child Nutrition Director Relationship Specialty Start Date End Date Ana Gillespie APRN [address] [place] [address] PCP - General Family Medicine 02/03/19 documented as of this encounter
--- OUTSIDE RECORDS SUMMARY | 2024-04-19 22:54 | XMS_ITS | Encounter Summary ---
[place] [address] Care Team Providers Care Metalworking Specialist Name Role Phone Ana Gillespie VAUGHN Primary Care Provider [phone] Encounter Details Date Type Department Care Team (Late st Contact Info) Description 05/27/2023 Telephone [place] [phone] Chiquita James, RN Social History Tobacco Use [...] 04/26/2024 8:30 AM EST Appointment [place] [phone] Gavin Carrillo MD [facility] [address] INTERVENTION[place] [address] 06/05/2024 1:20 PM EST Office Visit Cardiology at [address] [phone] Milagros Hernandez MD [facility] [address] Scheduled Procedures Name Priority Associated Diagnoses Date/Ti me EGD, UPPER GI ENDOSCOPY (WRV U 2.09) Peptic stricture of esophagus documented as of this encounter Visit Diagnoses Not on filedocumented in this encounter Care Teams Metalworking Specialist Relationship Specialty Start Date End Date Ana Gillespie APRN [address] [place] [address] PCP - General Family Medicine 02/03/19 documented as of this encounter
--- OUTSIDE RECORDS SUMMARY | 2024-04-19 22:54 | XMS_ITS | Encounter Summary ---
Author Organization [facility] [address] Care Team Providers Care Commercial Account Officer Name Role Phone Jose Miguel Ana MENDES Primary Care Provider Encounter Details Date Type Department Care Team (Late st Contact Info) Description 07/12/2023 Telephone Cardiology at [address] [phone] Chiquis Jean, RN Social History Tobacco Use [...] 07/12/2023 10:29 AM EST TC to [employer] in [facility], and spoke with Pharmacist to clarify [...] that the Entresto has been called to [facility] [place]. Reviewing his chart the last DH prescription refill from [facility] Cardiology was 09/24/2022, for 1 tablet 24-26mg, [...] 04/26/2024 8:30 AM EST [place] [address] Gavin Carrillo MD [facility] [place] [address] 06/05/2024 1:20 PM EST Office Visit Cardiology at [address] [address] Milagros Hernandez MD [facility] [place] [address] Scheduled Procedures Name Priority Associated Diagnoses Date/Ti me EGD, UPPER GI ENDOSCOPY (WRV U 2.09) Peptic stricture of esophagus documented as of this encounter Visit Diagnoses Not on filedocumented in this encounter Care Teams Commercial Account Officer Relationship Specialty Start Date End Date Ana Gillespie APRN [address] [place] [address] PCP - General Family Medicine 02/03/19 documented as of this encounter
--- OUTSIDE RECORDS SUMMARY | 2024-04-19 22:54 | XMS_ITS | Encounter Summary ---
Author Organization [facility] [place] [address] Care Team Providers Care Senior Instructor Name Role Phone Ana Gillespie APRN Primary Care Provider [phone] Encounter Details Date Type Department Care Team (Late st Contact Info) Description 07/06/2023 Telephone Cardiology at [address] [phone] Chiquis Jean, RN Social History Tobacco Use [...] message stating Mrs Irving was admitted to [facility] over this past weekend. He states [...] 04/26/2024 8:30 AM [place] [phone] Gavin Carrillo MD [facility] [address] [place] [address] 06/05/2024 1:20 PM EST Office Visit Cardiology at [address] [phone] Milagros Hernandez MD [facility] [place] [address] Scheduled Procedures Name Priority Associated Diagnoses Date/Ti me EGD, UPPER GI ENDOSCOPY (WRV U 2.09) Peptic stricture of esophagus documented as of this encounter Visit Diagnoses Not on filedocumented in this encounter Care Teams Senior Instructor Relationship Specialty Start Date End Date Ana Gillespie APRN [address] [place] [address] PCP - General Family Medicine 02/03/19 documented as of this encounter
--- OUTSIDE RECORDS SUMMARY | 2024-04-19 22:54 | XMS_ITS | Encounter Summary ---
Author Organization [facility] Address [facility] Marly petersen [place] [id number] Care Team Providers Care High Lighter Name Role Phone Ana Gillespie APRN Primary Care Provider [phone] Encounter Details Date Type Department Care Team [...] 04/26/2024 8:30 AM EST Appointment Radiology at [place] [phone] Gavin Carrillo MD [facility] [place] [address] 06/05/2024 1:20 PM EST Office Visit Cardiology at [address] [phone] Milagros Hernandez MD [facility] [place] [address] Scheduled Procedures Name Priority Associated Diagnoses Date/Ti me EGD, UPPER GI ENDOSCOPY (WRV U 2.09) Peptic stricture of esophagus documented as of this encounter Visit Diagnoses Not on filedocumented in this encounter Care Teams High Lighter Relationship Specialty Start Date End Date Ana Gillespie APRN [address] [place] [address] PCP - General Family Medicine 02/03/19 documented as of this encounter
--- OUTSIDE RECORDS SUMMARY | 2024-04-19 22:54 | XMS_ITS | Encounter Summary ---
Author Organization [facility] Address [facility] [place] [address] Care Team Providers Care Interlocker Name Role Phone Ana Gillespie VAUGHN Primary Care Provider [phone] Encounter Details Date Type Department Care Team (Latest Contact Info) Description 06/01/2023 7:00 AM EST - 06/01/2023 10:36 AM EST Hospital Encounter Gastroenterology at [facility] [place] [address] David Dejesus MD [facility] [place] [address] Discharge Disposition: Home Social History Tobacco Use [...] the day after the procedure, use an dvkd-sca-tqlxbfz spray to numb your throat. Sucking on [...] occurs, please contact your Doctor. Please call [phone] before 8pm Mon-Fri with problems, questions or concerns. If you call after 8pm or on weekends, call the Hospital at [phone] and ask to speak to the [employer] tea plantation worker and the rivet hammer machine operator will contact that person for you. When should you call for help? Call [phone] anytime you think you may need emergency [...] any problems. Where can you learn more? [facility] View your After Visit Summary and [...] cost to you. Content Version: 12.2 ?? [id number] [employer]. Care instructions adapted under license by [facility]. If you have questions about a medical condition or this instruction, always ask your healthcare professional. [employer] disclaims any warranty or liability for your [...] meter kit. 1 each 0 12/14/2014 Insulin Three Bridges, Disposable, (BD INSULIN PEN NEEDLE UF MINI) 31 x 07/23 NeedleIndications:Di abetes mellitus type 2, uncontrolled 1 Device by Misc.(Non-Drug; Combo Route) route 3 times daily as needed. 100 each 11 12/13/2014 sucralfate (Carafate) 1 gram tablet Take 1 tablet by mouth 4 times daily. 360 tablet 3 10/22/2022 03/23/2024 sacubitriL-valsartan (Entresto) 24-26 mg tablet 1 tablet [...] glucose meter kit. 1 each 0 Insulin Three Bridges, Disposable, (BD INSULIN PEN NEEDLE UF MINI) [...] Dejesus MD - 06/01/2023 9:15 AM EST [facility] Operative Note Patient Name: Jennifer Irving : [id number] MR#: [id number] Case Date: 06/01/2023 This note was entered in error documented in this encounter Plan of Treatment Upcoming Encounters Date Type Department Care Team (Late st Contact Info) Description 04/26/2024 8:30 AM EST App[place] [phone] Gavin Carrillo MD [facility] DR [place] [address] 06/05/2024 1:20 PM EST Office Visit Cardiology at [address] [phone] Milagros Hernandez MD [facility] [place] [address] Scheduled Procedures Name Priority Associated Diagnoses Date/Ti me EGD, UPPER GI ENDOSCOPY (WRV U 2.09) Peptic stricture of esophagus documented as of this encounter Procedures Procedure Name Priority Date/Time Associated Diagnosis Comments Up Gi Endoscopy, Rick Chavez, 30Mm (09850) 06/01/2023 9:06 AM EST Peptic stricture of esophagus UPPER GI ENDOSCOPY Routine 06/01/2023 8: 54 AM EST POCT GLUCOSE Routine 06/01/2023 8:32 AM EST documented in this encounter Results * UPPER GI ENDOSCOPY (06/01/2023 8:54 AM EST) [facility] UPPER GI ENDOSCOPY [facility] Endoscopy Procedure Date: 06/01/2023 8:54 AM ? Patient Name: Jennifer Irving ? N: [id number] ? Date of : 1960 ? Age: 62 ? Order #: [id number] ? Instrument Name: [id number] ? Procedure: ? Upper GI endoscopy Indications: ? Stricture dilation Providers: ? David Dejesus MD, Gaby ? Rylee, Kenna Barbosa Referring : ?Ana Young Medicines: ? General Anesthesia Complications: [...] Procedure Code(s): ? --- Professional --- ? 33560, Esophagogastroduod enoscopy, ? flexible, transoral; diagnostic, ? including collection of specimen(s) ? by brushing or washing, when ? performed (separate procedure) CPT copyright 2021 [employer]. All rights reserved. The codes documented in this report are preliminary and upon bulk pigment reducer review may be revised to meet current compliance requirements. Attending Participation: ? I personally performed the entire procedure. ? ___ David Dejesus MD 06/01/2023 9:37:18 AM This report has been signed electronically. Number of Addenda: 0 Note Initiated On: 06/01/2023 8:54 AM PROVATION 06/01/2023 8:54 AM EST Ana Gillespie CHIEF LENDING OFFICER GENERAL SURGICAL ORD ERABLES Performing Organization Address City/[facility] Co de Phone Number PROVATION * POCT Glucose (06/01/2023 8:32 AM EST) Glucose, POC 102 65 - 199 mg/dL [facility] Comment: Supplemental ranges: <140 mg/dL before meals <180 mg/dL all other times of the day Blood 06/01/2023 8:32 AM EST 06/01/2023 8:32 AM EST David Dejesus MD POINT OF CARE TEST ORDERABLES Performing Organization Address [facility] Co de Phone Number [facility] [place] [address] documented in this encounter Visit Diagnoses Not [...] RN) documented in this encounter Care Teams Interlocker Relationship Specialty Start Date End Date Ana Gillespie APRN [address] [place] [address] PCP - General Family Medicine 02/03/19 documented as of this encounter
--- OUTSIDE RECORDS SUMMARY | 2024-04-19 22:54 | XMS_ITS | Encounter Summary ---
Author Organization [facility] [place] [address] Care Team Providers Care Fruit Pitter Name Role Phone Ana Gillespie APRN Primary Care Provider [phone] Encounter Details Date Type Department Care Team (Late st Contact Info) Description 05/14/2023 Telephone [place] [phone] Chiquita James, RN Social History Tobacco Use [...] 04/26/2024 8:30 AM EST [place] [address] Gavin Carrillo MD [facility] [place] [address] 06/05/2024 1:20 PM EST Office Visit Cardiology at [address] [phone] Milagros Hernandez MD [facility] [place] [address] Scheduled Procedures Name Priority Associated Diagnoses Date/Ti me EGD, UPPER GI ENDOSCOPY (WRV U 2.09) Peptic stricture of esophagus documented as of this encounter Visit Diagnoses Not on filedocumented in this encounter Care Teams Fruit Pitter Relationship Specialty Start Date End Date Ana Gillespie APRN [address] [place] [address] PCP - General Family Medicine 02/03/19 documented as of this encounter
--- OUTSIDE RECORDS SUMMARY | 2024-04-19 22:54 | XMS_ITS | Encounter Summary ---
Author Organization [facility] [place] [address] Care Team Providers Care Paper Production Engineer Name Role Phone Ana Gillespie VAUGHN Primary Care Provider [phone] Encounter Details Date Type Department Care Team (Late st Contact Info) Description 07/04/2023 External [place] [address] Social History Tobacco Use Types Packs/Day Years [...] 04/26/2024 8:30 AM EST Appointment Radiology at [place] [phone] Gavin Carrillo MD [facility] [place] [address] 06/05/2024 1:20 PM EST Office Visit Cardiology at [address] [phone] Milagros Hernandez MD [facility] [place] [address] Scheduled Procedures Name Priority Associated Diagnoses Date/Ti [...] filedocumented in this encounter Care Teams Paper Production Engineer Relationship Specialty Start Date End Date Ana Gillespie APRN [address] [place] [address] PCP - General Family Medicine 02/03/19 documented as of this encounter
--- OUTSIDE RECORDS SUMMARY | 2024-04-19 22:54 | XMS_ITS | Encounter Summary ---
Author Organization [facility] Address [facility] M[place] [id number] Care Team Providers Care Technician Assistant Name Role Phone Ana Gillespie APRN Primary Care Provider [phone] Encounter Details Date Type Department Care Team [...] 04/26/2024 8:30 AM EST Appointment Radiology at [place] [phone] Gavin Carrillo MD [facility] [place] [address] 06/05/2024 1:20 PM EST Office Visit Cardiology at [address] [phone] Milagros Hernandez MD [facility] [place] [address] Scheduled Procedures Name Priority Associated Diagnoses Date/Ti me EGD, UPPER GI ENDOSCOPY (WRV U 2.09) Peptic stricture of esophagus documented as of this encounter Visit Diagnoses Not on filedocumented in this encounter Care Teams Technician Assistant Relationship Specialty Start Date End Date Ana Gillespie APRN [address] [place] [address] PCP - General Family Medicine 02/03/19 documented as of this encounter
--- OUTSIDE RECORDS SUMMARY | 2024-04-19 22:54 | XMS_ITS | Encounter Summary ---
Author Organization [facility] Address [facility] [place] [address] Care Team Providers Care It Data Architect Name Role Phone Ana Gillespie APRN Primary Care Provider [phone] Encounter Details Date Type Department Care Team (Late st Contact Info) Description 06/01/2023 9:02 AM EST Anesthesia [place] [phone] Kit Dutta MD [facility] [place] [address] Nichelle Dodson MD [facility] [place] [address] Anesthesia Record Procedure Summary Procedure Name Responsible [...] by Sergey Jordan RN PIV 06/01/23; 0836; bqxu-yed-apdymm catheter system; 22 gauge, 1 in length; [...] Procedure Summary Date: 06/01/23 Room / Location: [facility] ENDO 2 / [facility] ENDOSCOPY Anesthesia Start: 901 Anesthesia Stop: 951 Procedure: EGD,WITH DILATION ESOPHAGUS WITH BALLOON,< 30 MM (WRVU 2.67) (Trunk) Diagnosis: Peptic stricture of esophagus (repeat petic stricture dilation - please schedule within two weeks) Surgeons: David Dejesus MD Responsible Provider: Kit Dutta MD Anesthesia Type: MAC ASA Status: 3 All Anesthesia Providers: Anesthesiologist: Kit Dutta MD OCEANOGRAPHIC METEOROLOGIST: Cristine Gomez CRNA Vitals Value Taken Time [...] IR G-Tube Check/Change 11/27/2022 Hang Cooper, ROSLYN [facility] INTERVENTIONL RAD ??? IR G-TUBE CHECK/CHANGE 03/10/2023 IR G-Tube Check/Change 03/10/2023 Geronimo Chambers, [facility] INTERVENTIONL RAD ??? IR G-TUBE CHECK/CHANGE 04/06/2023 IR G-Tube Check/Change 04/06/2023 Gavin Carrillo MD [facility] INTERVENTIONL RAD ??? IR G-TUBE CHECK/CHANGE 05/09/2023 IR G-Tube Check/Change [facility] INTERVENTIONL RAD ??? IR G-TUBE PLACEMENT 09/11/2022 IR G-Tube Placement 09/11/2022 Moustapha Hart MD [facility] INTERVENTIONL RAD ??? IR SUTURE RELEASE 09/25/2022 IR Suture Release 09/25/2022 Yoselin Ghosh PA [facility] INTERVENTIONL RAD ??? PERCUTANEOUS GASTROSTOMY N/A 09/11/2022 PERCUTANEOUS GASTROSTOMY performed by Aiden Flores MD at [facility] CATY ??? PRO COLONOSCOPY, BIOPSY N/A 03/20/2016 COLONOSCOPY FLEXIBLE, WITH BX performed by David Dejesus MD at [facility] ENDOSCOPY ??? PRO COLONOSCOPY, DIAGNOSTIC N/A 03/01/2020 COLONOSCOPY, DIAGNOSTIC performed by David Dejesus MD at [facility] ENDOSCOPY ??? PRO ENDOSCOPIC US EXAM, ESOPH N/A 03/31/2022 UPPER EUS- ENDOSCOPIC ULTRASOUND performed by David Dejesus MD at [facility] ENDOSCOPY ??? PRO UP GI ENDOSCOPY, BALL DIL, 30MM N/A 12/24/2022 EGD,WITH DILATION ESOPHAGUS WITH BALLOON,< 30 MM (WRVU 2.67) [facility] ??? PRO UP GI ENDOSCOPY, BALL DIL, 30MM N/A 01/12/2023 EGD,WITH DILATION ESOPHAGUS WITH BALLOON,< 30 MM (WRVU 2.67) performed by David Dejesus MDat [facility] ENDOSCOPY ??? PRO UP GI ENDOSCOPY, BALL DIL, 30MM N/A 02/26/2023 EGD,WITH DILATION ESOPHAGUS WITH BALLOON,< 30 MM (WRVU 2.67) performed by David Dejesus [facility] ENDOSCOPY ??? PRO UP GI ENDOSCOPY, BALL DIL, 30MM N/A 03/16/2023 EGD,WITH DILATION ESOPHAGUS WITH BALLOON,< 30 MM (WRVU 2.67) performed by David Dejesus [facility] ENDOSCOPY ??? PRO UP GI ENDOSCOPY, BALL DIL, 30MM N/A 03/30/2023 EGD,WITH DILATION ESOPHAGUS WITH BALLOON,< 30 MM (WRVU 2.67) performed by David Dejesus [facility] ENDOSCOPY ??? PRO UP GI ENDOSCOPY, BALL DIL, 30MM N/A 04/30/2023 EGD,WITH DILATION ESOPHAGUS WITH BALLOON,< 30 MM (WRVU 2.67) performed by David Dejesus [facility] ENDOSCOPY ??? PRO UPPER GI ENDOSCOPY, BIOPSY N/A 04/03/2014 UPPER GASTROINTESTINAL ENDOSCOPY,WITH BIOPSY SINGLE OR MULTIPLE performed by David Dejesus [facility] ENDOSCOPY ??? PRO UPPER GI ENDOSCOPY, BIOPSY N/A 03/20/2016 EGD WITH BIOPSY performed by David Dejesus MD at [facility] ENDOSCOPY ??? PRO UPPER GI ENDOSCOPY, BIOPSY N/A 11/22/2018 EGD WITH BIOPSY (WRVU 2.49) performed by David Dejesus MD at [facility] ENDOSCOPY ??? PRO UPPER GI ENDOSCOPY, BIOPSY N/A 03/01/2020 UPPER GASTROINTESTINAL ENDOSCOPY,WITH BIOPSY SINGLE OR MULTIPLE (WRVU 2.49) performed by David Dejesus MD at [facility] ENDOSCOPY ??? PRO UPPER GI ENDOSCOPY, BIOPSY N/A 09/23/2021 EGD WITH BIOPSY (WRVU 2.49) performed by David Dejesus MD at [facility] ENDOSCOPY ??? PRO UPPER GI ENDOSCOPY, BIOPSY N/A 03/31/2022 EGD WITH BIOPSY (WRVU 2.49) performed by David Dejesus MD at [facility] ENDOSCOPY ??? PRO UPPER GI ENDOSCOPY, BIOPSY N/A 07/03/2022 EGD WITH BIOPSY (WRVU 2.49) performed by David Dejesus MD at [facility] ENDOSCOPY ??? PRO UPPER GI ENDOSCOPY, DIAGNOSTIC N/A 04/03/2014 EGD, UPPER GI ENDOSCOPY performed by David Dejesus MD at [facility] ENDOSCOPY ??? PRO UPPER GI ENDOSCOPY, DIAGNOSTIC N/A 03/01/2020 EGD, UPPER GI ENDOSCOPY performed by David Dejesus MD at [facility] ENDOSCOPY ??? PRO UPPER GI ENDOSCOPY, DIAGNOSTIC N/A 09/09/2022 EGD, UPPER GI ENDOSCOPY (WRVU 2.09) performed by Ayo Russ MD at [facility] MAIN OR Social History Tobacco Use [...] - Other Informed Consent: Plan discussed with OCEANOGRAPHIC METEOROLOGIST. Anesthesia Screening documented in this encounter Plan of Treatment Upcoming Encounters Date Type Department Care Team (Late st Contact Info) Description 04/26/2024 8:30 AM [place] [address] Gavin Carrillo MD [facility] [place] [address] 06/05/2024 1:20 PM EST Office Visit Cardiology at [address] [phone] Milagros Hernandez MD [facility] [place] [address] Scheduled [...] mg documented in this encounter Care Teams It Data Architect Relationship Specialty Start Date End Date Ana Gillespie APRN [address] [place] [address] PCP - General Family Medicine 02/03/19 documented as of this encounter
--- OUTSIDE RECORDS SUMMARY | 2024-04-19 22:54 | XMS_ITS | Encounter Summary ---
Author Organization [facility] Address [facility] [place] [address] Care Team Providers Care Detail Supervisor Name Role Phone Ana Gillespie APRN Primary Care Provider [phone] Encounter Details Date Type Department Care Team (Late st Contact Info) Description 06/18/2023 Orders [place] [address] Noe Cuenca MD [facility] [place] [address] Hypoxemia (Primary Dx) Social History Tobacco Use [...] 04/26/2024 8:30 AM EST Appoint[place] [address] Gavin Carrillo MD [facility] [place] [address] 06/05/2024 1:20 PM EST Office Visit Cardiology at [address] [phone] Milagros Hernandez MD [facility] [place] [address] (work) Scheduled Procedures Name Priority Associated Diagnoses [...] PFT FEV1/FVC Pre-BD Z-Score -0.14 COMPAS PFT MDP15-12 Actual Pre-BD 1.66 % COMPAS PFT GAD59-37 Predicted 1.94 % COMPAS PFT GCF68-86 Pre-BD % of Predicted 86 % COMPAS PFT BHZ48-19 Pre-BD Z-Score -0.41 COMPAS PFT DLCO Hb [...] Hypoxemia documented in this encounter Care Teams Detail Supervisor Relationship Specialty Start Date End Date Ana Gillespie APRN [address] [place] [address] PCP - General Family Medicine 02/03/19 documented as of this encounter
--- OUTSIDE RECORDS SUMMARY | 2024-04-19 22:54 | XMS_ITS | Encounter Summary ---
Author Organization [facility] Address [facility] [place] [address] Care Team Providers Care Massage Therapy Instructor Name Role Phone Ana Gillespie VAUGHN Primary Care Provider [phone] Encounter Details Date Type Department Care Team (Late st Contact Info) Description 06/01/2023 9:00 AM EST - 06/01/2023 9:45 AM EST Surgery Gastroenterology at [facility] [place] [address] David Dejesus MD [facility] DR [place] [address] EGD,WITH DILATION ESOPHAGUS WITH BALLOON,< 30 MM [...] the day after the procedure, use an [id number]-wwdobgc spray to numb your throat. Sucking on [...] occurs, please contact your Doctor. Please call [phone] before 8pm Mon-Fri with problems, questions or concerns. If you call after 8pm or on weekends, call the Hospital at [phone] and ask to speak to the C D Reactor Operator destination sign repairer and the test and research reactor operator will contact that person for you. When should you call for help? Call [phone] anytime you think you may need emergency [...] learn more? [facility] View your After Visit Summary and more online at [email or web address] If you would like to provide feedback about your hospital experience, please call the Office of Patient and Family Relations at . If you have received this After Visit Summary in error, please immediately return it in person to the department, or notify the [facility] Privacy Office by calling toll free at between the hours of 8AM and 5PM to arrange for our retrieval of the documents at no cost to you. Content Version: 12.2 ?? 4776-6486 [employer]. Care instructions adapted under license by [facility]. If you have questions about a medical condition or this instruction, always ask your healthcare professional. [employer] disclaims any warranty or liability for your [...] meter kit. 1 each 0 12/14/2014 Insulin [place], Disposable, (BD INSULIN PEN NEEDLE UF MINI) 31 x 07/23 NeedleIndications:Di abetes mellitus type 2, uncontrolled 1 Device by [facility] [...] glucose meter kit. 1 each 0 Insulin [place], Disposable, (BD INSULIN PEN NEEDLE UF MINI) [...] Dejesus MD - 06/01/2023 9:15 AM EST [facility] Operative Note Patient Name: Jennifer Irving : [id number] MR#: [id number] Case Date: 06/01/2023 This note was entered in error documented in this encounter Plan of Treatment Upcoming Encounters Date Type Department Care Team (Late st Contact Info) Description 04/26/2024 8:30 AM EST Appointment Radiology at [place] [phone] Gavin Carrillo MD [facility] [place] [address] 06/05/2024 1:20 PM EST Office Visit Cardiology at [address] [address] Milagros Hernandez MD [facility] [place] [address] Scheduled Procedures Name Priority Associated Diagnoses Date/Ti me EGD, UPPER GI ENDOSCOPY (WRV U 2.09) Peptic stricture of esophagus documented as of this encounter Procedures Procedure Name Priority Date/Time Associated Diagnosis Comments Up Gi Endoscopy, Ball Scott, 30Mm (76490) 06/01/2023 9:06 AM EST Peptic stricture of esophagus UPPER GI ENDOSCOPY Routine 06/01/2023 8: 54 AM EST POCT GLUCOSE Routine 06/01/2023 8:32 AM EST documented in this encounter Results * UPPER GI ENDOSCOPY (06/01/2023 8:54 AM EST) [facility] UPPER GI ENDOSCOPY [facility] Endoscopy Procedure Date: 06/01/2023 8:54 AM ? Patient Name: Jennifer Irving ? N: [id number] ? Date of : 1960 ? Age: 62 ? Order #: [id number] ? Instrument Name: [id number] ? Procedure: ? Upper GI endoscopy Indications: ? Stricture dilation Providers: ? David Dejesus MD, Gaby ? Bulk, Kenna Barbosa Referring : ?Ana Young Medicines: [...] Procedure Code(s): ? --- Professional --- ? 92002, Esophagogastroduod enoscopy, ? flexible, transoral; diagnostic, ? including collection of specimen(s) ? by brushing or washing, when ? performed (separate procedure) CPT copyright 2021 [employer]. All rights reserved. The codes documented in this report are preliminary and upon varnisher plasticoater review may be revised to meet current compliance requirements. Attending Participation: ? I personally performed the entire procedure. ? ___ David Dejesus MD 06/01/2023 9:37:18 AM This report has been signed electronically. Number of Addenda: 0 Note Initiated On: 06/01/2023 8:54 AM PROVATION 06/01/2023 8:54 AM EST Ana Gillespie HOUSEKEEPING ROOM ATTENDANT GENERAL SURGICAL ORD ERABLES Performing Organization Address City/[facility] Co de Phone Number PROVATION * POCT Glucose (06/01/2023 8:32 AM EST) Glucose, POC 102 65 - 199 mg/dL [facility] Comment: Supplemental ranges: <140 mg/dL before meals <180 mg/dL all other times of the day Blood 06/01/2023 8:32 AM EST 06/01/2023 8:32 AM EST David Dejesus MD POINT OF CARE TEST ORDERABLES Performing Organization Address City/State/[facility] Co de Phone Number [facility] [place] [address] documented in this encounter Visit Diagnoses Diagnosis [...] RN) documented in this encounter Care Teams Massage Therapy Instructor Relationship Specialty Start Date End Date Ana Gillespie APRN [address] [place] [address] PCP - General Family Medicine 02/03/19 documented as of this encounter
--- OUTSIDE RECORDS SUMMARY | 2024-04-19 22:54 | XMS_ITS | Encounter Summary ---
Author Organization [facility] [place] [address] Care Team Providers Care Trash Truck Driver Name Role Phone Ana Gillespie VAUGHN Primary Care Provider [phone] Encounter Details Date Type Department Care Team (Late st Contact Info) Description 05/18/2023 Telephone [place] [phone] Chiquita James, RN Social History Tobacco Use [...] 8:30 AM EST Appointment [place] [phone] Gavin Carrillo MD [facility] [address] [place] [address] 06/05/2024 1:20 PM EST Office Visit Cardiology at [address] [phone] Milagros Hernandez MD [facility] [place] [address] Scheduled Procedures Name Priority Associated Diagnoses Date/Ti me EGD, UPPER GI ENDOSCOPY (WRV U 2.09) Peptic stricture of esophagus documented as of this encounter Visit Diagnoses Not on filedocumented in this encounter Care Teams Trash Truck Driver Relationship Specialty Start Date End Date Ana Gillespie APRN [address] [place] [address] PCP - General Family Medicine 02/03/19 documented as of this encounter
--- OUTSIDE RECORDS SUMMARY | 2024-04-19 22:54 | XMS_ITS | Encounter Summary ---
Author Organization [facility] [place] [phone] Care Team Providers Care Youth Specialist Name Role Phone Ana Gillespie APRN Primary Care Provider [phone] Encounter Details Date Type Department Care Team (Late st Contact Info) Description 04/30/2023 3:26 PM EST Anesthesia [place] [phone] Leigh Carter MD [facility] DR ANESTHESIOLOGY DEPT [place] [phone] Cristine Gomez CRNA [facility] DR [place]ESTHESI[place] [address] Anesthesia Record Procedure Summary Procedure Name Responsible [...] questions and acknowledgement of understanding Susy Juárez FRONT ATTENDANT 1550 Procedure Stop 1555 Break/Relief Out 1557 [...] Procedure Summary Date: 04/30/23 Room / Location: [facility] ENDO 2 / [facility] ENDOSCOPY Anesthesia Start: 1526 Anesthesia Stop: 1600 Procedure: EGD,WITH DILATION ESOPHAGUS WITH BALLOON,< 30 MM (WRVU 2.67) (Trunk) Diagnosis: Peptic stricture of esophagus (peptic striture - schedule in two weeks) Surgeons: David Dejesus MD Responsible Provider: Leigh Carter MD Anesthesia Type: general ASA Status: 3 All Anesthesia Providers: Anesthesiologist: Leigh Carter MD FRONT ATTENDANT: Tapan Simpson CRNA Vitals Value Taken Time BP 102/57 04/30/23 1620 Temp Pulse Resp SpO2 96 % 04/30/23 1623 Pain Level 0 04/30/23 1620 Vitals shown include unfiled device data. Patient Location: PACU/[facility] Level of Consciousness: Awake and Alert [...] IR G-Tube Check/Change 11/27/2022 Hang Cooper PA [facility] INTERVENTIONL RAD [...] MM (WRVU 2.67) performed by David Dejesus [facility] ENDOSCOPY ??? PRO UP GI ENDOSCOPY, BALL DIL, 30MM N/A 02/26/2023 EGD,WITH DILATION ESOPHAGUS WITH BALLOON,< 30 MM (WRVU 2.67) performed by David Dejesus [facility] ENDOSCOPY ??? PRO UP GI ENDOSCOPY, BALL DIL, 30MM N/A 03/16/2023 EGD,WITH DILATION ESOPHAGUS WITH BALLOON,< 30 MM (WRVU 2.67) performed by David Dejesus [facility] ENDOSCOPY ??? PRO UP GI ENDOSCOPY, BALL DIL, 30MM N/A 03/30/2023 EGD,WITH DILATION ESOPHAGUS WITH BALLOON,< 30 MM (WRVU 2.67) performed by David Dejesus [facility] ENDOSCOPY ??? PRO UPPER GI ENDOSCOPY, BIOPSY N/A 04/03/2014 UPPER GASTROINTESTINAL ENDOSCOPY,WITH BIOPSY SINGLE OR MULTIPLE performed by David Dejesus [facility] ENDOSCOPY ??? PRO UPPER GI ENDOSCOPY, BIOPSY [...] discussed with patient. Plan discussed with FRONT ATTENDANT and attending. Anesthesia Screening documented in this encounter Plan of Treatment Upcoming Encounters Date Type Department Care Team (Late st Contact Info) Description 04/26/2024 8:30 AM EST Appointment [place] [phone] Gavin Carrillo MD [facility] INTERVENTIONAL [place] [address] 06/05/2024 1:20 PM EST Office Visit Cardiology at [address] [phone] Milagros Hernandez MD [facility] [place] [address] Scheduled Procedures Name Priority [...] mg documented in this encounter Care Teams Youth Specialist Relationship Specialty Start Date End Date Ana Gillespie APRN [address] [place] [address] PCP - General Family Medicine 02/03/19 documented as of this encounter
--- OUTSIDE RECORDS SUMMARY | 2024-04-19 22:54 | XMS_ITS | Encounter Summary ---
Author Organization [facility] Address [facility] [place] [address] Care Team Providers Care Patient Financial Services Specialist Name Role Phone Ana Gillespie VAUGHN Primary Care Provider [phone] Reason for Visit * Reason Onset Date Comments Questions 04/13/2023 Low BP reading Encounter Details Date Type Department Care Team (Late st Contact Info) Description 04/13/2023 Telephone Cardiology at [address] [phone] Chela Walsh, RN Questions (Low BP reading) [...] 04/26/2024 8:30 AM EST [place] [address] Gavin Carrillo MD [facility] [place] [address] 06/05/2024 1:20 PM EST Office Visit Cardiology at [address] [phone] Milagros Hernandez MD [facility] [place] [address] Scheduled Procedures Name Priority Associated Diagnoses Date/Ti me EGD, UPPER GI ENDOSCOPY (WRV U 2.09) Peptic stricture of esophagus documented as of this encounter Visit Diagnoses Not on filedocumented in this encounter Care Teams Patient Financial Services Specialist Relationship Specialty Start Date End Date Ana Gillespie APRN [address] [place] [address] PCP - General Family Medicine 02/03/19 documented as of this encounter
--- OUTSIDE RECORDS SUMMARY | 2024-04-19 22:54 | XMS_ITS | Encounter Summary ---
[place] [address] Care Team Providers Care Floor Covering Printer Name Role Phone Ana Gillespie APRN Primary Care Provider [phone] Encounter Details Date Type Department Care Team (Late Contact Info) Description 04/15/2023 Telephone Cardiology at [address] [phone] Chela Walsh, RN Social History Tobacco Use [...] 04/26/2024 8:30 AM [place] [phone] Gavin Carrillo MD [facility] [place] [address] 06/05/2024 1:20 PM EST Office Visit Cardiology at [address] [phone] Milagros Hernandez MD [facility] [place] [address] Scheduled Procedures Name Priority Associated Diagnoses Date/Ti me EGD, UPPER GI ENDOSCOPY (WRV U 2.09) Peptic stricture of esophagus documented as of this encounter Visit Diagnoses Not on filedocumented in this encounter Care Teams Floor Covering Printer Relationship Specialty Start Date End Date Ana Gillespie APRN [address] [place] [address] PCP - General Family Medicine 02/03/19 documented as of this encounter
--- OUTSIDE RECORDS SUMMARY | 2024-04-19 22:54 | XMS_ITS | Encounter Summary ---
[place] [address] Care Team Providers Care Inspector Brake Lining Name Role Phone Ana Gillespie VAUGHN Primary Care Provider [phone] Reason for Referral * Diagnostic Test (Routine) - Closed Specialty Diagnoses / Procedures Referred By Esperanza rodríguez Referred To Contact Radiology Diagnoses Problem with gastrostomy tube Procedures IR G-Tube Check/Change Nisha Chavez MD [facility] [place] [address] [place] [address] Referral ID Status Reason Start Date Expiration Date V isits Requested Visits Authorized [id number] Closed Specialty Service Requested 05/09/2023 11/06/2024 1 1 Reason for Visit * Diagnostic Test (Routine) - Closed Specialty Diagnoses / Procedures Referred By Esperanza rodríguez Referred To Contact Radiology Diagnoses Problem with gastrostomy tube Procedures IR G-Tube Check/Change Nisha Chavez MD [facility] [place] [address] [place] [address] Referral ID Status Reason Start Date Expiration Date V isits Requested Visits Authorized [id number] Closed Specialty Service Requested 05/09/2023 11/06/2024 1 1 Encounter Details Date Type Department Care Team (Latest Contact Info) Description 05/09/2023 11:00 AM EST - 05/09/2023 11:59 PM EST Hospital Encounter Radiology at [facility] [place] [phone] Azeem Alarcon MD [facility] [place] [address] Problem with gastrostomy tube Discharge Disposition: Home [...] meter kit. 1 each 0 12/14/2014 Insulin [place], Disposable, (BD INSULIN PEN NEEDLE UF MINI) [...] 04/26/2024 8:30 AM EST [place] [phone] Gavin Carrillo MD [facility] [address] [place] [address] 06/05/2024 1:20 PM EST Office Visit Cardiology at [address] [phone] Milagros Hernandez MD [facility] [place] [address] Scheduled Procedures Name Priority Associated Diagnoses Date/Ti [...] mLs documented in this encounter Care Teams Inspector Brake Lining Relationship Specialty Start Date End Date Ana Gillespie APRN [address] [place] [address] PCP - General Family Medicine 02/03/19 documented as of this encounter
--- OUTSIDE RECORDS SUMMARY | 2024-04-19 22:54 | XMS_ITS | Encounter Summary ---
Author Organization [facility] [place] [address] Care Team Providers Care Vocational Childcare Teacher Name Role Phone Ana Gillespie DRILL PRESS TENDER Primary Care Provider [phone] Encounter Details Date Type Department Care Team (Late st Contact Info) Description 05/05/2023 Telephone [facility] [place] [address] Parris Maravilla Social History Tobacco Use Types [...] - 05/05/2023 10:15 AM EST Jennifer Irving [id number] Diagnosis/Indication: repeat petic stricture dilation - please [...] 3 procedures You must have a responsible republican who will drive you to your procedure, stay on campus for the entire duration of your procedure, and drive you home from your procedure. Who will likely be your miniature train driver for the procedure? *Please Verify the [...] 04/26/2024 8:30 AM [place] [phone] Gavin Carrillo MD [facility] [place] [address] 06/05/2024 1:20 PM EST Office Visit Cardiology at [address] [phone] Milagros Hernandez MD [facility] [place] [address] Scheduled Procedures Name Priority Associated Diagnoses Date/Ti me EGD, UPPER GI ENDOSCOPY (WRV U 2.09) Peptic stricture of esophagus documented as of this encounter Visit Diagnoses Not on filedocumented in this encounter Care Teams Vocational Childcare Teacher Relationship Specialty Start Date End Date Ana Gillespie APRN [address] [place] [address] PCP - General Family Medicine 02/03/19 documented as of this encounter
--- OUTSIDE RECORDS SUMMARY | 2024-04-19 22:54 | XMS_ITS | Encounter Summary ---
Author Organization [facility] Address [facility] [place] [address] Care Team Providers Care Advertising Operations Manager Name Role Phone Ana Gillespie APRN Primary Care Provider [phone] Reason for Visit * Reason Onset Date Comments Medication Refill 07/12/2023 Encounter Details Date Type Department Care Team (Late st Contact Info) Description 07/12/2023 Refill Cardiology at [address] [phone] Milagros Hernandez MD [facility] [place] [address] Medication Refill Social History Tobacco Use Types [...] 04/26/2024 8:30 AM EST Appointment [place] [phone] Gavin Carrillo MD [facility] [place] [address] 06/05/2024 1:20 PM EST Office Visit Cardiology at [address] [phone] Milagros Hernandez MD [facility] [place] [address] Scheduled Procedures Name Priority Associated Diagnoses Date/Ti me EGD, UPPER GI ENDOSCOPY (WRV U 2.09) Peptic stricture of esophagus documented as of this encounter Visit Diagnoses Diagnosis HFrEF (heart failure with reduced ejection fraction) documented in this encounter Care Teams Advertising Operations Manager Relationship Specialty Start Date End Date Ana Gillespie APRN [address] [place] [address] PCP - General Family Medicine 02/03/19 documented as of this encounter
--- OUTSIDE RECORDS SUMMARY | 2024-04-19 22:54 | XMS_ITS | Encounter Summary ---
Author Organization [facility] [place] [address] Care Team Providers Care Order Planner Name Role Phone Ana Gillespie APRN Primary Care Provider [phone] Encounter Details Date Type Department Care Team (Late st Contact Info) Description 06/01/2023 Orders [place] [phone] David Dejesus MD [facility] [place] [address] Peptic stricture of esophagus Social History Tobacco [...] 04/26/2024 8:30 AM EST [place] [phone] Gavin Carrillo MD [facility] [place] [address] 06/05/2024 1:20 PM EST Office Visit Cardiology at [address] [phone] Milagros Hernandez MD [facility] [place] [address] Scheduled Procedures Name Priority Associated Diagnoses Date/Ti me EGD, UPPER GI ENDOSCOPY (WRV U 2.09) Peptic stricture of esophagus documented as of this encounter Visit Diagnoses Diagnosis Peptic stricture of esophagus Stricture and stenosis of esophagus documented in this encounter Care Teams Order Planner Relationship Specialty Start Date End Date Ana Gillespie APRN [address] [place] [address] PCP - General Family Medicine 02/03/19 documented as of this encounter
--- OUTSIDE RECORDS SUMMARY | 2024-04-19 22:54 | XMS_ITS | Encounter Summary ---
Author Organization [facility] Address [facility] [place] [address] Care Team Providers Care Mechanical Technician Name Role Phone Ana Gillespie VAUGHN Primary Care Provider [phone] Encounter Details Date Type Department Care Team (Late st Contact Info) Description 07/04/2023 Telephone Cardiology at [address] [place] [phone] Gaby Lockett APRN [facility] [place] [address] Social History Tobacco Use Types Packs/Day Years [...] received a call from Dr. Trimble from [facility] through the . Per Dr. Trimble: Overnight [...] 04/26/2024 8:30 AM EST Appointment [place] [address] Gavin Carrillo MD [facility] [place] [address] 06/05/2024 1:20 PM EST Office Visit Cardiology at [address] [phone] Milagros Hernandez MD [facility] [place] [address] Scheduled Procedures Name Priority Associated Diagnoses Date/Ti me EGD, UPPER GI ENDOSCOPY (WRV U 2.09) Peptic stricture of esophagus documented as of this encounter Visit Diagnoses Not on filedocumented in this encounter Care Teams Mechanical Technician Relationship Specialty Start Date End Date nAa Gillespie APRN [address] [place] [address] PCP - General Family Medicine 02/03/19 documented as of this encounter
--- OUTSIDE RECORDS SUMMARY | 2024-04-19 22:54 | XMS_ITS | Encounter Summary ---
Author Organization [facility] Address [facility] [address] Care Team Providers Care Security Checker Name Role Phone Ana Gillespie VAUGHN Primary Care Provider [phone] Encounter Details Date Type Department Care Team (Late st Contact Info) Description 05/25/2023 Telephone [place] [phone] Chiquita James, RN Social History [...] 04/26/2024 8:30 AM EST [place] [phone] Gavin Carrillo MD [facility] [place] [address] 06/05/2024 1:20 PM EST Office Visit Cardiology at [address] [phone] Milagros Hernandez MD [facility] [place] [address] Scheduled Procedures Name Priority Associated Diagnoses Date/Ti me EGD, UPPER GI ENDOSCOPY (WRV U 2.09) Peptic stricture of esophagus documented as of this encounter Visit Diagnoses Not on filedocumented in this encounter Care Teams Security Checker Relationship Specialty Start Date End Date Ana Gillespie APRN [address] [place] [address] PCP - General Family Medicine 02/03/19 documented as of this encounter
--- OUTSIDE RECORDS SUMMARY | 2024-04-19 22:54 | XMS_ITS | Encounter Summary ---
Author Organization [facility] Address [facility] Marly petersen [place] [phone] Care Team Providers Care Sheet Metal Duct Worker Supervisor Name Role Phone Ana Gillespie APRN Primary Care Provider [phone] Encounter Details Date Type Department Care Team [...] 04/26/2024 8:30 AM EST Appointment Radiology at [place] [phone] Gavin Carrillo MD [facility] [place] [address] 06/05/2024 1:20 PM EST Office Visit Cardiology at [address] [phone] Milagros Hernandez MD [facility] [place] [address] Scheduled Procedures Name Priority Associated Diagnoses Date/Ti me EGD, UPPER GI ENDOSCOPY (WRV U 2.09) Peptic stricture of esophagus documented as of this encounter Visit Diagnoses Not on filedocumented in this encounter Care Teams Sheet Metal Duct Worker Supervisor Relationship Specialty Start Date End Date Ana Gillespie APRN [address] [place] [address] PCP - General Family Medicine 02/03/19 documented as of this encounter
--- OUTSIDE RECORDS SUMMARY | 2024-04-19 22:54 | XMS_ITS | Encounter Summary ---
Author Organization [facility] [place] [address] Care Team Providers Care Dermatopathologist Name Role Phone Ana Gillespie VAUGHN Primary Care Provider [phone] Encounter Details Date Type Department Care Team (Late st Contact Info) Description 06/11/2023 Telephone [place] [phone] Chiquita James, RN Social History Tobacco Use [...] 04/26/2024 8:30 AM [place] [phone] Gavin Carrillo MD [facility] [address] [place] [address] 06/05/2024 1:20 PM EST Office Visit Cardiology at [address] [address] Milagros Hernandez MD [facility] [place] [address] Scheduled Procedures Name Priority Associated Diagnoses Date/Ti me EGD, UPPER GI ENDOSCOPY (WRV U 2.09) Peptic stricture of esophagus documented as of this encounter Visit Diagnoses Not on filedocumented in this encounter Care Teams Dermatopathologist Relationship Specialty Start Date End Date Ana Gillespie APRN [address] [place] [address] PCP - General Family Medicine 02/03/19 documented as of this encounter
--- OUTSIDE RECORDS SUMMARY | 2024-04-19 22:54 | XMS_ITS | Encounter Summary ---
Author Organization [facility] [place] [address] Care Team Providers Care Speech Lang Path Therapist Name Role Phone Ana Gillespie APRN Primary Care Provider [phone] Encounter Details Date Type Department Care Team (Late st Contact Info) Description 04/30/2023 Orders [place] [phone] David Dejesus MD [facility] [place] [address] Peptic stricture of esophagus Social History Tobacco [...] 04/26/2024 8:30 AM EST [place] [address] Gavin Carrillo MD [facility] [place] [address] 06/05/2024 1:20 PM EST Office Visit Cardiology at [address] [phone] Milagros Hernandez MD [facility] [place] [address] Scheduled Orders Name Type Priority Associated Diagnoses [...] esophagus documented in this encounter Care Teams Speech Lang Path Therapist Relationship Specialty Start Date End Date Ana Gillespie APRN [address] [place] [address] PCP - General Family Medicine 02/03/19 documented as of this encounter
--- OUTSIDE RECORDS SUMMARY | 2024-04-19 22:54 | XMS_ITS | Encounter Summary ---
Author Organization [facility] [place] [address] Care Team Providers Care Kidney Trimmer Name Role Phone Ana Gillespie VAUGHN Primary Care Provider [phone] Reason for Referral * Diagnostic Test (Routine) - Closed Specialty Diagnoses / Procedures Referred By Esperanza rodríguez Referred To Contact Radiology Diagnoses Problem with gastrostomy tube Procedures IR G-Tube Check/Change Jaime Chavez MD [facility] [place] [address] [place] [address] Referral ID Status Reason Start Date Expiration Date V isits Requested Visits Authorized [id number] Closed Specialty Service Requested 05/09/2023 11/06/2024 1 1 Encounter Details Date Type Department Care Team (Late st Contact Info) Description 05/09/2023 [place] [address] Jaime Chavez MD [facility] [place] [address] Encounter for screening mammogram for breast cancer; [...] out for which they sought treatment at [facility]. A barba was placed into the tract. [...] G-Tube Check/Change 11/27/2022 Hang Cooper PA [facility] INTERVENTIONL RAD IR G-TUBE CHECK/CHANGE 03/10/2023 IR G-Tube Check/Change 03/10/2023 Geronimo Chambers DO [facility] [...] (WRVU 2.67) performed by David Dejesus [facility] ENDOSCOPY PRO UP GI ENDOSCOPY, BALL DIL, 30MM N/A 01/12/2023 EGD,WITH DILATION ESOPHAGUS WITH BALLOON,< 30 MM (WRVU 2.67) performed by David Dejesus [facility] ENDOSCOPY PRO UP GI ENDOSCOPY, BALL DIL, 30MM N/A 02/26/2023 EGD,WITH DILATION ESOPHAGUS WITH BALLOON,< 30 MM (WRVU 2.67) performed by David Dejesus [facility] ENDOSCOPY PRO UP GI ENDOSCOPY, BALL DIL, 30MM N/A 03/16/2023 EGD,WITH DILATION ESOPHAGUS WITH BALLOON,< 30 MM (WRVU 2.67) performed by David Dejesus [facility] ENDOSCOPY PRO UP GI ENDOSCOPY, BALL DIL, 30MM N/A 03/30/2023 EGD,WITH DILATION ESOPHAGUS WITH BALLOON,< 30 MM (WRVU 2.67) performed by David Dejesus [facility] ENDOSCOPY PRO UP GI ENDOSCOPY, BALL DIL, 30MM N/A 04/30/2023 EGD,WITH DILATION ESOPHAGUS WITH BALLOON,< 30 MM (WRVU 2.67) performed by David Dejesus [facility] ENDOSCOPY PRO UPPER GI ENDOSCOPY, BIOPSY N/A 04/03/2014 UPPER GASTROINTESTINAL ENDOSCOPY,WITH BIOPSY SINGLE OR MULTIPLE performed by David Dejesus [facility] ENDOSCOPY PRO UPPER GI ENDOSCOPY, BIOPSY N/A [...] [facility] MA[facility] Medications: Current Outpatient Medications [...] daily. 180 tablet 3 Blood Sugar Diagnostic (Lee Silber ULTRA TEST) Strip 1 each by Other [...] glucose meter kit. 1 each 0 Insulin Allen, Disposable, (BD INSULIN PEN NEEDLE UF MINI) 31 x 3/16 Needle 1 Device by [facility] [...] 04/26/2024 8:30 AM [place] [phone] Gavin Carrillo MD [facility] [place] [address] 06/05/2024 1:20 PM EST Office Visit Cardiology at [address] [phone] Milagros Hernandez MD [facility] [place] [address] Scheduled Procedures Name Priority Associated Diagnoses Date/Ti mt EGD, UPPER GI ENDOSCOPY (WRV U 2.09) [...] tube documented in this encounter Care Teams Kidney Trimmer Relationship Specialty Start Date End Date Ana Gillespie APRN [address] [place] [address] PCP - General Family Medicine 02/03/19 documented as of this encounter
--- OUTSIDE RECORDS SUMMARY | 2024-04-19 22:54 | XMS_ITS | Encounter Summary ---
Author Organization [facility] Address [facility] [place] [address] Care Team Providers Care Hide Worker Name Role Phone Ana Gillespie VAUGHN Primary Care Provider [phone] Encounter Details Date Type Department Care Team (Late st Contact Info) Description 06/15/2023 Telephone Pulmonology at [place] [phone] Niru Mary Social History Tobacco Use Types [...] 04/26/2024 8:30 AM EST Appointment Radiology at [place] [phone] Gavin Carrillo MD [facility] [place] [address] 06/05/2024 1:20 PM EST Office Visit Cardiology at [address] [phone] Milagros Hernandez MD [facility] [place] [address] Scheduled Procedures Name Priority Associated Diagnoses Date/Ti me EGD, UPPER GI ENDOSCOPY (WRV U 2.09) Peptic stricture of esophagus documented as of this encounter Visit Diagnoses Not on filedocumented in this encounter Care Teams Hide Worker Relationship Specialty Start Date End Date Ana Gillespie APRN [address] [place] [address] PCP - General Family Medicine 02/03/19 documented as of this encounter
--- OUTSIDE RECORDS SUMMARY | 2024-04-19 22:54 | XMS_ITS | Encounter Summary ---
Author Organization [facility] Address [facility] [place] [address] Care Team Providers Care Creeler Name Role Phone Ana Gillespie VAUGHN Primary Care Provider [phone] Encounter Details Date Type Department Care Team (Latest Contact Info) Description 04/30/2023 1:29 PM EST - 04/30/2023 4:43 PM EST Hospital Encounter Gastroenterology at [facility] [place] [address] David Dejesus MD [facility] [place] [address] Discharge Disposition: Home Social History Tobacco Use [...] the day after the procedure, use an ybae-jmt-maqplun spray to numb your throat. Sucking on [...] occurs, please contact your Doctor. Please call [phone] before 8pm Mon-Fri with problems, questions or concerns. If you call after 8pm or on weekends, call the Hospital at [phone] and ask to speak to the Warranty Coordinator missionary coordinator and the envelope folding machine operator will contact that person for you. When should you call for help? Call [phone] anytime you think you may need emergency [...] more? Visit our health information library at [email or web address] You can also view health information on [employer], your personal patient account. Log in or sign uptoday. Enter J014 in the search box to learn more about Esophageal Dilation: What to Expect at Home. Current as of: December 18, 2018Content Version: 12.4 ?? [id number] [employer]. Care instructions adapted under license by [facility]. If you have questions about a medical condition or this instruction, always ask your healthcare professional. [employer] disclaims any warranty or liability for your [...] meter kit. 1 each 0 12/14/2014 Insulin [place], Disposable, (BD INSULIN PEN NEEDLE UF MINI) [...] 04/26/2024 8:30 AM [place] [address] Gavin Carrillo MD [facility] [place] [address] 06/05/2024 1:20 PM EST Office Visit Cardiology at [address] [address] Milagros Hernandez MD [facility] [place] [address] Scheduled Procedures Name Priority Associated Diagnoses Date/Ti me EGD, UPPER GI ENDOSCOPY (WRV U 2.09) Peptic stricture of esophagus documented as of this encounter Procedures Procedure Name Priority Date/Time Associated Diagnosis Comments POCT GLUCOSE Routine 04/30/2023 4:13 PM EST Up Gi Endoscopy, Ball Dil, 30Mm (25853) 04/30/2023 3:25 PM EST Peptic stricture of esophagus UPPER GI ENDOSCOPY Routine 04/30/2023 3: 14 PM EST POCT GLUCOSE Routine 04/30/2023 2:09 PM EST documented in this encounter Results * POCT Glucose (04/30/2023 4:13 PM EST) Glucose, POC 81 65 - 199 mg/dL [facility] Comment: Supplemental ranges: <140 mg/dL before meals <180 mg/dL all other times of the day Blood 04/30/2023 4:13 PM EST 04/30/2023 4:13 PM EST David Dejesus MD POINT OF CARE TEST ORDERABLES Performing Organization Address City/State/[place]UST Co de Phone Number [facility] [place] [address] * UPPER GI ENDOSCOPY (04/30/2023 3:14 PM EST) UPPER GI ENDOSCOPY [facility] Endoscopy Procedure Date: 04/30/2023 3:14 PM ? Patient Name: Jennifer Irving ? N: [id number] ? Date of : 1960 ? Age: 62 ? Order #: [id number] ? Instrument Name: [id number] ? Procedure: ? Upper GI endoscopy Indications: [...] PROVATION 04/30/2023 3:14 PM EST Ana Gillespie YOGA TEACHER GENERAL SURGICAL ORD ERABLES PROVATION * POCT Glucose (04/30/2023 2:09 PM EST) Glucose, POC 75 65 - 199 mg/dL [facility] Comment: Supplemental ranges: <140 mg/dL before meals <180 mg/dL all other times of the day Blood 04/30/2023 2:09 PM EST 04/30/2023 2:09 PM EST David Dejesus MD POINT OF CARE TEST ORDERABLES [facility] [place] [address] documented in this encounter Visit Diagnoses Not [...] 1445 (New Bag - Prov ider: Phyllis Angel, ERI) documented in this encounter Care Teams Creeler Relationship Specialty Start Date End Date Ana Gillespie APRN [address] [place] [address] PCP - General Family Medicine 02/03/19 documented as of this encounter
--- OUTSIDE RECORDS SUMMARY | 2024-04-19 22:54 | XMS_ITS | Encounter Summary ---
Author Organization [facility] [place] [address] Care Team Providers Care Truck Dispatcher Name Role Phone Ana Gillespie VAUGHN Primary Care Provider [phone] Encounter Details Date Type Department Care Team (Late st Contact Info) Description 04/19/2023 [place] [address] Juice Maxwell RN Social History [...] is requesting a call back to reschedule. [phone] Forwarded to scheduling. documented in this encounter Plan of Treatment Upcoming Encounters Date Type Department Care Team (Late st Contact Info) Description 04/26/2024 8:30 AM [place] [address] Gavin Carrillo MD [facility] [place] [address] 06/05/2024 1:20 PM EST Office Visit Cardiology at [address] [phone] Milagros Hernandez MD [facility] [place] [address] Scheduled Procedures Name Priority Associated Diagnoses Date/Ti me EGD, UPPER GI ENDOSCOPY (WRV U 2.09) Peptic stricture of esophagus documented as of this encounter Visit Diagnoses Not on filedocumented in this encounter Care Teams Truck Dispatcher Relationship Specialty Start Date End Date Ana Gillespie APRN [address] [place] [address] PCP - General Family Medicine 02/03/19 documented as of this encounter
--- OUTSIDE RECORDS SUMMARY | 2024-04-19 22:54 | XMS_ITS | Encounter Summary ---
Author Organization [facility] Address [facility] [place] [address] Care Team Providers Care Medication Assistant Name Role Phone Ana Gillespie VAUGHN Primary Care Provider [phone] Encounter Details Date Type Department Care Team (Late st Contact Info) Description 04/30/2023 3:00 PM EST - 04/30/2023 3:45 PM EST Surgery Gastroenterology at [facility] [place] [address] [facility] [place] [address] EGD,WITH DILATION ESOPHAGUS WITH BALLOON,< 30 MM [...] the day after the procedure, use an ualw-upx-aevuhck spray to numb your throat. Sucking on [...] occurs, please contact your Doctor. Please call [phone] before 8pm Mon-Fri with problems, questions or concerns. If you call after 8pm or on weekends, call the Hospital at [phone] and ask to speak to the Log Raft Worker orthodontic technician assistant and the addressograph operator will contact that person for you. When should you call for help? Call [phone] anytime you think you may need emergency [...] more? Visit our health information library at [email or web address] You can also view health information on [employer], your personal patient account. Log in or sign uptoday. Enter J014 in the search box to learn more about Esophageal Dilation: What to Expect at Home. Current as of: December 18, 2018Content Version: 12.4 ?? [id number] [employer]. Care instructions adapted under license by [facility]. If you have questions about a medical condition or this instruction, always ask your healthcare professional. [employer] disclaims any warranty or liability for your [...] meter kit. 1 each 0 12/14/2014 Insulin [place], Disposable, (BD INSULIN PEN NEEDLE UF MINI) [...] 04/26/2024 8:30 AM [place] [address] [facility] [place] [address] 06/05/2024 1:20 PM EST Office Visit Cardiology at [address] [address] [facility] [address] Scheduled Procedures Name Priority Associated Diagnoses Date/Ti me EGD, UPPER GI ENDOSCOPY (WRV U 2.09) Peptic stricture of esophagus documented as of this encounter Procedures Procedure Name Priority Date/Time Associated Diagnosis Comments POCT GLUCOSE Routine 04/30/2023 4:13 PM EST Up Gi Endoscopy, Ball Dil, 30Mm (88209) 04/30/2023 3:25 PM EST Peptic stricture of esophagus UPPER GI ENDOSCOPY Routine 04/30/2023 3: 14 PM EST POCT GLUCOSE Routine 04/30/2023 2:09 PM EST documented in this encounter Results * POCT Glucose (04/30/2023 4:13 PM EST) Glucose, POC 81 65 - 199 mg/dL [facility] Comment: Supplemental ranges: <140 mg/dL before meals <180 mg/dL all other times of the day Blood 04/30/2023 4:13 PM EST 04/30/2023 4:13 PM EST David Dejesus MD POINT OF CARE TEST ORDERABLES Performing Organization Address City/State/[facility] Co de Phone Number [facility] [place] [address] * UPPER GI ENDOSCOPY (04/30/2023 3:14 PM EST) UPPER GI ENDOSCOPY [facility] Endoscopy Procedure Date: 04/30/2023 3:14 PM ? Patient Name: Jennifer Irving ? N: [id number] ? Date of : 1960 ? Age: 62 ? Order #: [id number] ? Instrument Name: [id number] ? Procedure: ? Upper GI endoscopy Indications: [...] PROVATION 04/30/2023 3:14 PM EST Ana Gillespie NATIONAL SALES TRAINER GENERAL SURGICAL ORD ERABLES PROVATION * POCT Glucose (04/30/2023 2:09 PM EST) Glucose, POC 75 65 - 199 mg/dL [facility] Comment: Supplemental ranges: <140 mg/dL before meals <180 mg/dL all other times of the day Blood 04/30/2023 2:09 PM EST 04/30/2023 2:09 PM EST David Dejesus MD POINT OF CARE TEST ORDERABLES [facility] [place] [place] [address] documented in this encounter Visit Diagnoses Diagnosis [...] RN) documented in this encounter Care Teams Medication Assistant Relationship Specialty Start Date End Date Ana Gillespie APRN [address] [place] [address] PCP - General Family Medicine 02/03/19 documented as of this encounter
--- OUTSIDE RECORDS SUMMARY | 2024-04-19 22:54 | XMS_ITS | Encounter Summary ---
Author Organization [facility] Address [facility] [place] [address] Care Team Providers Care Milieu Coordinator Name Role Phone Ana Gillespie APRN Primary Care Provider [phone] Reason for Referral * Consultation (Routine) - Authorized Specialty Diagnoses / Procedures Referred By Esperanza rodríguez Referred To Contact Pulmonology Diagnoses Hypoxemia Ana Gillespie APRN [address] [place] [address] Noe Cuenca MD [facility] [place] [address] Referral ID Status Reason Start Date Expiration Date Visits Requested Visits Authorized [id number] Authorized Consult, Test & Treat PCP Updated and/or Approved 05/27/2023 05/26/2024 6 6 Encounter Details Date Type Department Care Team (Late Contact Info) Description 05/27/2023 Transcribe Orders eD Incoming Referrals [phone] Ana Gillespie APRN [address] [place], [place] [address] Hypoxemia Social History Tobacco Use Types Packs/Day [...] 04/26/2024 8:30 AM EST [place] [phone] Gavin Carrillo MD [facility] [place] [address] 06/05/2024 1:20 PM EST Office Visit Cardiology at [address] [phone] Milagros Hernandez MD [facility] [address] Scheduled Procedures Name Priority Associated Diagnoses Date/Ti me EGD, UPPER GI ENDOSCOPY (WRV U 2.09) Peptic stricture of esophagus Scheduled Referrals Name Type Priority Associated Diagnoses Order Schedule Referral to Pulmonology Outpatient Referral Routine Hypoxemia Ordered: 05/27/2023 documented as of this encounter Visit Diagnoses Diagnosis Hypoxemia documented in this encounter Care Teams Milieu Coordinator Relationship Specialty Start Date End Date Ana Gillespie APRN [address] [place] [address] PCP - General Family Medicine 02/03/19 documented as of this encounter
--- OUTSIDE RECORDS SUMMARY | 2024-04-19 22:54 | XMS_ITS | Encounter Summary ---
Author Organization [facility] [place] [address] Care Team Providers Care Property Claims Manager Name Role Phone Ana Gillespie VAUGHN Primary Care Provider [phone] Reason for Referral * Diagnostic Test (Routine) - Closed Specialty Diagnoses / Procedures Referred By Esperanza rodríguez Referred To Contact Radiology Diagnoses Neuroleptic-induced parkinsonism Procedures IR G-Tube Check/Change Fannie Conde PA [facility] [place] [address] [place] [address] Referral ID Status Reason Start Date Expiration Date V isits Requested Visits Authorized [id number] Closed Specialty Service Requested 07/06/2023 01/03/2025 1 1 Encounter Details Date Type Department Care Team (Late st Contact Info) Description 07/06/2023 Notes [place] [address] Fannie Conde PA [facility] [place] [address] Social History Tobacco Use Types Packs/Day Years [...] catheter with tube feeds, [facility]. Patient's reports that she was evaluated at [facility] for possible PNA, and the [...] glucose meter kit. 1 each 0 Insulin [place], Disposable, (BD INSULIN PEN NEEDLE UF MINI) 31 x 3/16 Needle 1 Device by [facility].(Non-Drug; Combo Route) [...] IR G-Tube Check/Change 11/27/2022 Hang Cooper PA [facility] INTERVENTIONL RAD IR G-TUBE CHECK/CHANGE 03/10/2023 IR G-Tube Check/Change 03/10/2023 Geronimo Chambers DO [facility] INTERVENTIONL RAD IR G-TUBE CHECK/CHANGE 04/06/2023 IR G-Tube Check/Change 04/06/2023 Gavin Carrillo MD [facility] INTERVENTIONL RAD IR G-TUBE CHECK/CHANGE 05/09/2023 IR G-Tube Check/Change [facility] INTERVENTIONL RAD IR G-TUBE PLACEMENT 09/11/2022 IR G-Tube Placement 09/11/2022 Moustapha Hart MD [facility] INTERVENTIONL RAD IR SUTURE RELEASE 09/25/2022 IR Suture Release 09/25/2022 Yoselin Ghosh PA [facility] INTERVENTIONL RAD PERCUTANEOUS GASTROSTOMY N/A 09/11/2022 PERCUTANEOUS GASTROSTOMY performed by Aiden Flores MD at [facility] CATY PRO COLONOSCOPY, BIOPSY N/A 03/20/2016 COLONOSCOPY FLEXIBLE, WITH BX performed by David Dejesus MD at [facility] ENDOSCOPY PRO COLONOSCOPY, DIAGNOSTIC N/A 03/01/2020 COLONOSCOPY, DIAGNOSTIC performed by David Dejesus MD at [facility] ENDOSCOPY PRO ENDOSCOPIC US EXAM, ESOPH N/A 03/31/2022 UPPER EUS- ENDOSCOPIC ULTRASOUND performed by David Dejesus MD at [facility] ENDOSCOPY PRO UP GI ENDOSCOPY, BALL DIL, 30MM N/A 12/24/2022 EGD,WITH DILATION ESOPHAGUS WITH BALLOON,< 30 MM (WRVU 2.67) performed by David Dejesus MDat [facility] ENDOSCOPY PRO UP GI ENDOSCOPY, BALL DIL, 30MM N/A 01/12/2023 EGD,WITH DILATION ESOPHAGUS WITH BALLOON,< 30 MM (WRVU 2.67) performed by David Dejesus [facility] ENDOSCOPY PRO UP GI ENDOSCOPY, BALL DIL, 30MM N/A 02/26/2023 EGD,WITH DILATION ESOPHAGUS WITH BALLOON,< 30 MM (WRVU 2.67) performed by David Dejesus [facility] ENDOSCOPY PRO UP GI ENDOSCOPY, BALL DIL, 30MM N/A 03/16/2023 EGD,WITH DILATION ESOPHAGUS WITH BALLOON,< 30 MM (WRVU 2.67) performed by David Dejesus [facility] ENDOSCOPY PRO UP GI ENDOSCOPY, BALL DIL, 30MM N/A 03/30/2023 EGD,WITH DILATION ESOPHAGUS WITH BALLOON,< 30 MM (WRVU 2.67) performed by David Dejesus [facility] ENDOSCOPY PRO UP GI ENDOSCOPY, BALL DIL, 30MM N/A 04/30/2023 EGD,WITH DILATION ESOPHAGUS WITH BALLOON,< 30 MM (WRVU 2.67) performed by David Dejesus [facility] ENDOSCOPY PRO UP GI ENDOSCOPY, BALL DIL, 30MM N/A 06/01/2023 EGD,WITH DILATION ESOPHAGUS WITH BALLOON,< 30 MM (WRVU 2.67) performed by David Dejesus [facility] ENDOSCOPY PRO UPPER GI ENDOSCOPY, BIOPSY N/A 04/03/2014 UPPER GASTROINTESTINAL ENDOSCOPY,WITH BIOPSY SINGLE OR MULTIPLE performed by David Dejesus [facility] ENDOSCOPY PRO UPPER GI ENDOSCOPY, BIOPSY N/A 03/20/2016 EGD WITH BIOPSY performed by David Dejesus MD at [facility] ENDOSCOPY PRO UPPER GI ENDOSCOPY, BIOPSY N/A 11/22/2018 EGD WITH BIOPSY (WRVU 2.49) performed by David Dejesus MD at [facility] ENDOSCOPY PRO UPPER GI ENDOSCOPY, BIOPSY N/A 03/01/2020 UPPER GASTROINTESTINAL ENDOSCOPY,WITH BIOPSY SINGLE OR MULTIPLE (WRVU 2.49) performed by David Dejesus MD at [facility] ENDOSCOPY PRO UPPER GI ENDOSCOPY, BIOPSY N/A 09/23/2021 EGD WITH BIOPSY (WRVU 2.49) performed by David Dejesus MD at [facility] ENDOSCOPY PRO UPPER GI ENDOSCOPY, BIOPSY N/A 03/31/2022 EGD WITH BIOPSY (WRVU 2.49) performed by David Dejesus MD at [facility] ENDOSCOPY PRO UPPER GI ENDOSCOPY, BIOPSY N/A 07/03/2022 EGD WITH BIOPSY (WRVU 2.49) performed by David Dejesus MD at [facility] ENDOSCOPY PRO UPPER GI ENDOSCOPY, DIAGNOSTIC N/A 04/03/2014 EGD, UPPER GI ENDOSCOPY performed by David Dejesus MD at [facility] ENDOSCOPY PRO UPPER GI ENDOSCOPY, DIAGNOSTIC N/A 03/01/2020 EGD, UPPER GI ENDOSCOPY performed by David Dejesus MD at [facility] ENDOSCOPY PRO UPPER GI ENDOSCOPY, DIAGNOSTIC N/A 09/09/2022 EGD, UPPER GI ENDOSCOPY (WRVU 2.09) performed by Ayo Russ MD at [facility] MAIN OR Social History and Habits: [...] 8:30 AM EST Appointment [place] [phone] Gavin Carrillo MD [facility] [place] [address] 06/05/2024 1:20 PM EST Office Visit Cardiology at [address] [phone] Milagros Hernandez MD [facility] [place] [address] Scheduled Procedures Name Priority Associated Diagnoses Date/Ti [...] procedure was performed under fluoroscopic guidance. ??A ocean rescue lieutenant fluoroscopic image was obtained. ??Contrast was injected through the gastrostomy catheter and another fluoroscopic image was obtained. ??Through the catheter, an 0.035 Amplatz wire was advanced. ??The catheter was removed. ??Over the wire, a new 16-Fr hcg-acw-mlkucwo (ESTRELLITA) gastrostomy catheter was advanced. ??The retention [...] freely than typical. Exchange for new 16-Fr mjx-guv-bqqcjjz (ESTRELLITA) gastrostomy catheter within the stomach; retention [...] Parkinsonism documented in this encounter Care Teams Property Claims Manager Relationship Specialty Start Date End Date Ana Gillespie APRN [address] [place] [address] PCP - General Family Medicine 02/03/19 documented as of this encounter
--- OUTSIDE RECORDS SUMMARY | 2024-04-19 22:54 | XMS_ITS | Encounter Summary ---
[place] [address] Care Team Providers Care Bottom Buffer Name Role Phone Ana Gillespie VAUGHN Primary Care Provider [phone] Reason for Referral * Diagnostic Test (Routine) - Closed Specialty Diagnoses / Procedures Referred By Esperanza t Referred To Contact Radiology Diagnoses Neuroleptic-induced parkinsonism Procedures IR G-Tube Check/Change EagleFannie merritt PA [facility] [place] [address] [facility] [place] [address] Referral ID Status Reason Start Date Expiration Date V isits Requested Visits Authorized [id number] Closed Specialty Service Requested 07/06/2023 01/03/2025 1 1 Reason for Visit * Diagnostic Test (Routine) - Closed Specialty Diagnoses / Procedures Referred By Contjovani rodríguez Referred To Contact Radiology Diagnoses Neuroleptic-induced parkinsonism Procedures IR G-Tube Check/Change EagleFannie merritt PA [facility] [place] [address] [facility] [place] [address] Referral ID Status Reason Start Date Expiration Date V isits Requested Visits Authorized [id number] Closed Specialty Service Requested 07/06/2023 01/03/2025 1 1 Encounter Details Date Type Department Care Team (Latest Contact Info) Description 07/09/2023 12:21 PM EST - 07/09/2023 11:59 PM EST Hospital Encounter Radiology at [facility] [address] Moustapha Hart MD [facility] [place] [address] Neuroleptic-induced parkinsonism Discharge Disposition: Home Social History [...] or its attachments. INTERVENTIONAL RADIOLOGY PHONE NUMBERS [phone] If you have a NON Low profile feeding tube, call with any questions or concerns. During regular office hours call: [phone]. If it is after regular office hours, weekends or holidays, please call [phone] and ask to speak to the [employer] sales and customer relations rep for Interventional Radiology. If you have a low profile ???ESTRELLITA-BARLOW?? feeding tube, please call Dejah Stauffer RN for any issues: [phone]. Revised 02/23/19 documented in this encounter Medications [...] meter kit. 1 each 0 12/14/2014 Insulin [place], Disposable, (BD INSULIN PEN NEEDLE UF MINI) [...] of : 1960 AGE: 63 y.o. Address: [address] [address] (home) Mobile: Telephone Information: Referring Provider: Fannie Conde REASON FOR VISIT: Order Questions Answers Where will study be performed? [facility] Radiology [120] Is the patient on [...] 04/26/2024 8:30 AM EST [place] [address] Gavin Carrillo MD [facility] [place] [address] 06/05/2024 1:20 PM EST Office Visit Cardiology at [address] [phone] Milagros Hernandez MD [facility] [place] [address] Scheduled Procedures Name Priority Associated [...] procedure was performed under fluoroscopic guidance. ??A diecast machine operator fluoroscopic image was obtained. ??Contrast was injected through the gastrostomy catheter and another fluoroscopic image was obtained. ??Through the catheter, an 0.035 Amplatz wire was advanced. ??The catheter was removed. ??Over the wire, a new 16-Fr mzn-hrl-ktflpqu (ESTRELLITA) gastrostomy catheter was advanced. ??The retention [...] freely than typical. Exchange for new 16-Fr ahe-dnd-yvrssbj (ESTRELLITA) gastrostomy catheter within the stomach; retention disc snugged closely to abdominal wall. ?? Impression: Successful gastrostomy catheter exchange. ??The catheter may be used immediately. Resident/Fellow: None. Attending: Dr. Geronimo Chambers. I, Dr. Chambers, was present throughout the procedure. Moustapha Hart MD [facility] IR ORDERABLES documented in this encounter Visit [...] mLs documented in this encounter Care Teams Bottom Buffer Relationship Specialty Start Date End Date Ana Gillespie APRN [address] [place] [address] PCP - General Family Medicine 02/03/19 documented as of this encounter
--- OUTSIDE RECORDS SUMMARY | 2024-04-19 22:54 | XMS_ITS | Encounter Summary ---
Author Organization [facility] Address [facility] [place] [address] Care Team Providers Care Bicycle Mechanic Name Role Phone Ana Gillespie VAUGHN Primary Care Provider [phone] Encounter Details Date Type Department Care Team (Late st Contact Info) Description 06/18/2023 Telephone Pulmonology at [place] [phone] Niru Mary Social History Tobacco Use Types [...] 04/26/2024 8:30 AM EST Appointment Radiology at [place] [phone] Gavin Carrillo MD [facility] INTERVENTIONAL [place] [address] 06/05/2024 1:20 PM EST Office Visit Cardiology at [address] [phone] Milagros Hernandez MD [facility] [place] [address] Scheduled Procedures Name Priority Associated Diagnoses Date/Ti me EGD, UPPER GI ENDOSCOPY (WRV U 2.09) Peptic stricture of esophagus documented as of this encounter Visit Diagnoses Not on filedocumented in this encounter Care Teams Bicycle Mechanic Relationship Specialty Start Date End Date Ana Gillespie APRN [address] [place] [address] PCP - General Family Medicine 02/03/19 documented as of this encounter
--- OUTSIDE RECORDS SUMMARY | 2024-04-19 22:55 | XMS_ITS | Encounter Summary ---
Author Organization [facility] [place] [address] Care Team Providers Care Conservation Or Heritage Architect Name Role Phone Ana Gillespie APRN Primary Care Provider [phone] Encounter Details Date Type Department Care Team (Late st Contact Info) Description 03/16/2023 1:02 PM EST Anesthesia [place] [phone] Rio Aceves MD [facility] [place] [address] Beti Cisneros CRNA [facility] [place] [address] Anesthesia Record Procedure Summary Procedure Name Responsible [...] by Sergey Jordan RN PIV 03/16/23; 1221; cigb-kco-lqedmw catheter system; 22 gauge; metacarpal vein (top [...] Procedure Summary Date: 03/16/23 Room / Location: [facility] ENDO 2 / [facility] ENDOSCOPY Anesthesia Start: 1302 Anesthesia Stop: 1343 Procedure: EGD,WITH DILATION ESOPHAGUS WITH BALLOON,< 30 MM (WRVU 2.67) (Trunk) Diagnosis: Peptic stricture of esophagus (stricture dilation) Surgeons: David Dejesus MD Responsible Provider: Rio Aceves MD Anesthesia Type: general ASA Status: 3 All Anesthesia Providers: Anesthesiologist: Rio Aceves MD HYDRAULIC PRESS OPERATOR: Beti Cisneros CRNA Vitals Value Taken Time BP 110/60 03/16/23 1420 Temp Pulse Resp 18 03/16/23 1420 SpO2 96 % 03/16/23 1423 Pain Level 0 03/16/23 1420 Vitals shown include unfiled device data. Patient Location: PACU/[facility] Level of [...] IR G-Tube Check/Change 11/27/2022 Hang Cooper PA [facility] INTERVENTIONL RAD ??? IR G-TUBE CHECK/CHANGE 03/10/2023 IR G-Tube Check/Change 03/10/2023 Geronimo Chambers, DO [facility] INTERVENTIONL RAD ??? IR G-TUBE PLACEMENT 09/11/2022 IR G-Tube Placement 09/11/2022 Moustapha Hart MD [facility] INTERVENTIONL RAD ??? IR SUTURE RELEASE 09/25/2022 IR Suture Release 09/25/2022 Yoselin Ghosh PA [facility] INTERVENTIONL RAD ??? PERCUTANEOUS GASTROSTOMY N/A 09/11/2022 PERCUTANEOUS GASTROSTOMY performed by Aiden Flores MD at [facility] CATY ??? PRO COLONOSCOPY, BIOPSY N/A 03/20/2016 COLONOSCOPY FLEXIBLE, WITH BX performed by David Dejesus MD at [facility] ENDOSCOPY ??? PRO COLONOSCOPY, DIAGNOSTIC N/A 03/01/2020 COLONOSCOPY, DIAGNOSTIC performed by David Dejesus MD at [facility] ENDOSCOPY ??? PRO ENDOSCOPIC US EXAM, ESOPH N/A 03/31/2022 UPPER EUS- ENDOSCOPIC ULTRASOUND performed by David Dejesus MD at [facility] ENDOSCOPY ??? PRO UP GI ENDOSCOPY, BALL DIL, 30MM N/A 12/24/2022 EGD,WITH DILATION ESOPHAGUS WITH BALLOON,< 30 MM (WRVU 2.67) performed by David Dejesus [facility] ENDOSCOPY ??? PRO UP GI ENDOSCOPY, BALL DIL, 30MM N/A 01/12/2023 EGD,WITH DILATION ESOPHAGUS WITH BALLOON,< 30 MM (WRVU 2.67) performed by David Dejesus [facility] ENDOSCOPY ??? PRO UP GI ENDOSCOPY, BALL DIL, 30MM N/A 02/26/2023 EGD,WITH DILATION ESOPHAGUS WITH BALLOON,< 30 MM (WRVU 2.67) performed by David Dejesus [facility] ENDOSCOPY ??? PRO UPPER GI ENDOSCOPY, BIOPSY N/A 04/03/2014 UPPER GASTROINTESTINAL ENDOSCOPY,WITH BIOPSY SINGLE OR MULTIPLE performed by David Dejesus [facility] ENDOSCOPY ??? PRO UPPER GI ENDOSCOPY, BIOPSY N/A 03/20/2016 EGD WITH BIOPSY performed by David Dejesus MD at [facility] ENDOSCOPY ??? PRO UPPER GI ENDOSCOPY, BIOPSY N/A 11/22/2018 EGD WITH BIOPSY (WRVU 2.49) performed by David Dejesus MD at [facility] ENDOSCOPY ??? PRO UPPER GI ENDOSCOPY, BIOPSY N/A 03/01/2020 UPPER GASTROINTESTINAL ENDOSCOPY,WITH BIOPSY SINGLE OR MULTIPLE (WRVU 2.49) performed by David Dejesus MD at [facility] ENDOSCOPY ??? PRO UPPER GI ENDOSCOPY, BIOPSY N/A 09/23/2021 EGD WITH BIOPSY (WRVU 2.49) performed by David Dejesus MD at [facility] ENDOSCOPY ??? PRO UPPER GI ENDOSCOPY, BIOPSY N/A 03/31/2022 EGD WITH BIOPSY (WRVU 2.49) performed by David Dejesus MD at [facility] ENDOSCOPY ??? PRO UPPER GI ENDOSCOPY, BIOPSY N/A 07/03/2022 EGD WITH BIOPSY (WRVU 2.49) performed by David Dejesus MD at [facility] ENDOSCOPY ??? PRO UPPER GI ENDOSCOPY, DIAGNOSTIC N/A 04/03/2014 EGD, UPPER GI ENDOSCOPY performed by David Dejesus MD at [facility] ENDOSCOPY ??? PRO UPPER GI ENDOSCOPY, DIAGNOSTIC N/A 03/01/2020 EGD, UPPER GI ENDOSCOPY performed by David Dejesus MD at [facility] ENDOSCOPY ??? PRO UPPER GI ENDOSCOPY, DIAGNOSTIC N/A 09/09/2022 EGD, UPPER GI ENDOSCOPY (WRVU 2.09) performed by Ayo Russ MD at [facility] MAIN OR Social History Tobacco Use [...] with patient and spouse. Plan discussed with HYDRAULIC PRESS OPERATOR and attending. Anesthesia Screening documented in this encounter Plan of Treatment Upcoming Encounters Date Type Department Care Team (Late st Contact Info) Description 04/26/2024 8:30 AM EST Appointment Radiology at [place] [phone] Gavin Carrillo MD [facility] [place] [address] 06/05/2024 1:20 PM EST Office Visit Cardiology at [address] [phone] Milagros Hernandez MD [facility] [place] [address] Scheduled Procedures Name Priority Associated Diagnoses Date/Ti [...] mg documented in this encounter Care Teams Conservation Or Heritage Architect Relationship Specialty Start Date End Date Ana Gillespie APRN [address] [place] [address] PCP - General Family Medicine 02/03/19 documented as of this encounter
--- OUTSIDE RECORDS SUMMARY | 2024-04-19 22:55 | XMS_ITS | Encounter Summary ---
Author Organization [facility] Address [facility] [place] [address] Care Team Providers Care Artificial Snow Making Machine Operator Name Role Phone Ana Gillespie APRN Primary Care Provider [phone] Reason for Visit * Reason Onset Date Comments Medication Refill 03/03/2023 Metoprolol Suc cinate, instruction change. Encounter Details Date Type Department Care Team (Late st Contact Info) Description 03/03/2023 Refill Cardiology at [address] [phone] Milagros Hernandez MD [facility] [place] [address] Medication Refill (Metoprolol Succinate, instruction change.) Social [...] 04/26/2024 8:30 AM EST Appointment [place] [phone] Gavin Carrillo MD [facility] [place] [address] 06/05/2024 1:20 PM EST Office Visit Cardiology at [address] [phone] Milagros Hernandez MD [facility] [place] [address] Scheduled Procedures Name Priority Associated Diagnoses Date/Ti me EGD, UPPER GI ENDOSCOPY (WRV U 2.09) Peptic stricture of esophagus documented as of this encounter Visit Diagnoses Diagnosis HFrEF (heart failure with reduced ejection fraction) documented in this encounter Care Teams Artificial Snow Making Machine Operator Relationship Specialty Start Date End Date Ana Gillespie APRN [address] [place] [address] PCP - General Family Medicine 02/03/19 documented as of this encounter
--- OUTSIDE RECORDS SUMMARY | 2024-04-19 22:55 | XMS_ITS | Encounter Summary ---
Author Organization [facility] Address [facility] [place] [address] Care Team Providers Care Human Resources Support Specialist Name Role Phone Ana Gillespie VAUGHN Primary Care Provider [phone] Encounter Details Date Type Department Care Team (Latest Contact Info) Description 01/12/2023 6:17 AM EDT - 01/12/2023 10:54 AM EDT Hospital Encounter [place] [address] David Dejesus MD [facility] [place] [place] [address] Discharge Disposition: Home Social History Tobacco Use [...] the day after the procedure, use an kihg-tik-lgcfdql spray to numb your throat. Sucking on [...] occurs, please contact your Doctor. Please call [phone] before 8pm Mon-Fri with problems, questions or concerns. If you call after 8pm or on weekends, call the Hospital at [phone] and ask to speak to the [employer] I Assembler correctional officer captain and the mirror finishing machine operator will contact that person for [...] and more online at [email or web address] If you would like to provide feedback about your hospital experience, please call the Office of Patient and Family Relations at . If you have received this After Visit Summary in error, please immediately return it in person to the department, or notify the [facility] Privacy Office by calling toll free at between the hours of 8AM and 5PM to arrange for our retrieval of the documents at no cost to you. Content Version: 12.2 ?? [id number] [email or web address]. Care instructions adapted under license by [facility]. If you have questions about a medical condition or this instruction, always ask your healthcare professional. [email or web address], [employer] disclaims any warranty or liability for your [...] meter kit. 1 each 0 12/14/2014 Insulin [place], Disposable, (BD INSULIN PEN NEEDLE UF MINI) 31 x 3/16 NeedleIndications:Di abetes mellitus type 2, uncontrolled 1 Device by Misc.(Non-Drug; Combo Route) route 3 times daily as needed. 100 each 11 12/13/2014 sucralfate (Carafate) 1 gram tablet Take 1 tablet by mouth 4 times daily. 360 tablet 3 10/22/2022 03/23/2024 buPROPion (Wellbutrin) 100 mg tablet 1 tablet [...] 04/26/2024 8:30 AM EST [place] [phone] Gavin Carrillo MD [facility] [place] [address] 06/05/2024 1:20 PM EST Office Visit Cardiology at [address] [phone] Milagros Hernandez MD [facility] [place] [address] Scheduled Procedures Name Priority Associated Diagnoses Date/Ti me EGD, UPPER GI ENDOSCOPY (WRV U 2.09) Peptic stricture of esophagus documented as of this encounter Procedures Procedure Name Priority Date/Time Associated Diagnosis Comments Up Gi Endoscopy, Rick Chavez, 30Mm ([address]) 01/12/2023 8:06 AM EDT Peptic stricture of esophagus POCT GLUCOSE Routine 01/12/2023 7:31 AM EDT documented in this encounter Results * POCT Glucose (01/12/2023 7:31 AM EDT) Glucose, POC 115 65 - 199 mg/dL [facility] Comment: Supplemental ranges: <140 mg/dL before meals <180 mg/dL all other times of the day Blood 01/12/2023 7:31 AM EDT 01/12/2023 7:31 AM EDT David Dejesus MD POINT OF CARE TEST ORDERABLES Performing Organization Address City/State/[facility] Co de Phone Number [facility] [place] [address] documented in this encounter Visit Diagnoses Not [...] CRNA) documented in this encounter Care Teams Human Resources Support Specialist Relationship Specialty Start Date End Date Ana Gillespie APRN [address] [place] [address] PCP - General Family Medicine 02/03/19 documented as of this encounter
--- OUTSIDE RECORDS SUMMARY | 2024-04-19 22:55 | XMS_ITS | Encounter Summary ---
Author Organization [facility] Address [facility] Marly petersen [place] [id number] Care Team Providers Care Recreational Vehicle Repairer Name Role Phone Ana Gillespie APRN Primary Care Provider [phone] Encounter Details Date Type Department Care Team [...] 04/26/2024 8:30 AM EST Appointment Radiology at [place] [phone] Gavin Carrillo MD [facility] [place] [address] 06/05/2024 1:20 PM EST Office Visit Cardiology at [address] [phone] Milagros Hernandez MD [facility] [place] [address] Scheduled Procedures Name Priority Associated Diagnoses Date/Ti me EGD, UPPER GI ENDOSCOPY (WRV U 2.09) Peptic stricture of esophagus documented as of this encounter Visit Diagnoses Not on filedocumented in this encounter Care Teams Recreational Vehicle Repairer Relationship Specialty Start Date End Date Ana Gillespie APRN [address] [place] [address] PCP - General Family Medicine 02/03/19 documented as of this encounter
--- OUTSIDE RECORDS SUMMARY | 2024-04-19 22:55 | XMS_ITS | Encounter Summary ---
Author Organization [facility] Address [facility] Marly p[place]en [place] [id number] Care Team Providers Care Ticket Puller Name Role Phone Ana Gillespie APRN Primary Care Provider [phone] Encounter Details Date Type Department Care Team [...] 04/26/2024 8:30 AM EST Appointment Radiology at [place] [phone] Gavin Carrillo MD [facility] [place] [address] 06/05/2024 1:20 PM EST Office Visit Cardiology at [address] [phone] Milagros Hernandez MD [facility] [place] [address] Scheduled Procedures Name Priority Associated Diagnoses Date/Ti me EGD, UPPER GI ENDOSCOPY (WRV U 2.09) Peptic stricture of esophagus documented as of this encounter Visit Diagnoses Not on filedocumented in this encounter Care Teams Ticket Puller Relationship Specialty Start Date End Date Ana Gillespie APRN [address] [place] [address] PCP - General Family Medicine 02/03/19 documented as of this encounter
--- OUTSIDE RECORDS SUMMARY | 2024-04-19 22:55 | XMS_ITS | Encounter Summary ---
[place] [address] Care Team Providers Care Machine Hostler Name Role Phone Ana Gillespie VAUGHN Primary Care Provider [phone] Encounter Details Date Type Department Care Team (Late Contact Info) Description 01/14/2023 Telephone [place] [address] Juice Maxwell RN Social History [...] 04/26/2024 8:30 AM [place] [phone] Gavin Carrillo MD [facility] INTERVENTIONAL RADIOLOGY [place], [place] [id number] 06/05/2024 1:20 PM EST Office Visit Cardiology at [address] [phone] Milagros Hernandez MD [facility] [place] [address] Scheduled Procedures Name Priority Associated Diagnoses Date/Ti me EGD, UPPER GI ENDOSCOPY (WRV U 2.09) Peptic stricture of esophagus documented as of this encounter Visit Diagnoses Not on filedocumented in this encounter Care Teams Machine Hostler Relationship Specialty Start Date End Date Ana Gillespie APRN [address] [place] [address] PCP - General Family Medicine 02/03/19 documented as of this encounter
--- OUTSIDE RECORDS SUMMARY | 2024-04-19 22:55 | XMS_ITS | Encounter Summary ---
Author Organization [facility] [place] [address] Care Team Providers Care Matrix Drier Tender Name Role Phone Ana Gillespie APRN Primary Care Provider [phone] Encounter Details Date Type Department Care Team (Late st Contact Info) Description 02/26/2023 Orders Only Gastro[place] [phone] David Dejesus MD [facility] [place] [address] Peptic stricture of esophagus Social History Tobacco [...] 04/26/2024 8:30 AM EST Appointment [place] [address] Gavin Carrillo MD [facility] [place] [address] 06/05/2024 1:20 PM EST Office Visit Cardiology at [address] [phone] Milagros Hernandez MD [facility] [place] [address] Scheduled Orders Name Type Priority Associated Diagnoses [...] esophagus documented in this encounter Care Teams Matrix Drier Tender Relationship Specialty Start Date End Date Ana Gillespie APRN [address] [place] [address] PCP - General Family Medicine 02/03/19 documented as of this encounter
--- OUTSIDE RECORDS SUMMARY | 2024-04-19 22:55 | XMS_ITS | Encounter Summary ---
Author Organization [facility] Address [facility] [place] [address] Care Team Providers Care Postulant Name Role Phone Ana Gillespie VAUGHN Primary Care Provider [phone] Encounter Details Date Type Department Care Team (Late st Contact Info) Description 03/16/2023 1:00 PM EST - 03/16/2023 1:30 PM EST Surgery Gastroenterology at [facility] [place] [address] David Dejesus MD [facility] [place] [address] EGD,WITH DILATION ESOPHAGUS WITH BALLOON,< 30 MM [...] the day after the procedure, use an hlky-wbt-noumtmh spray to numb your throat. Sucking on [...] occurs, please contact your Doctor. Please call [phone] before 8pm Mon-Fri with problems, questions or concerns. If you call after 8pm or on weekends, call the Hospital at [phone] and ask to speak to the Ethnology Teacher audio production instructor and the well drill operator helper cable tool will contact that person for you. When should you call for help? Call [phone] anytime you think you may need emergency [...] more? Visit our health information library at [email or web address] You can also view health information on [employer], your personal patient account. Log in or sign uptoday. Enter J014 in the search box to learn more about Esophageal Dilation: What to Expect at Home. Current as of: December 18, 2018Content Version: 12.4 ?? 8403-1925 [employer]. Care instructions adapted under license by [facility]. If you have questions about a medical condition or this instruction, always ask your healthcare professional. [employer] disclaims any warranty or liability for your [...] meter kit. 1 each 0 12/14/2014 Insulin [place], Disposable, (BD INSULIN PEN NEEDLE UF MINI) 31 x 07/23 NeedleIndications:Di abetes mellitus type 2, uncontrolled 1 Device by [facility] [...] 04/26/2024 8:30 AM EST Appointment [place] [phone] Gavin Carrillo MD [facility] [place] [address] 06/05/2024 1:20 PM EST Office Visit Cardiology at [address] [phone] Milagros Hernandez MD [facility] [place] [address] Scheduled Procedures Name Priority Associated Diagnoses Date/Ti me EGD, UPPER GI ENDOSCOPY (WRV U 2.09) Peptic stricture of esophagus documented as of this encounter Procedures Procedure Name Priority Date/Time Associated Diagnosis Comments Up Gi Endoscopy, Ball Dil, 30Mm (52024) 03/16/2023 1:03 PM EST Peptic stricture of esophagus UPPER GI ENDOSCOPY Routine 03/16/2023 12 :23 PM EST POCT GLUCOSE Routine 03/16/2023 12:05 PM EST documented in this encounter Results * UPPER GI ENDOSCOPY (03/16/2023 12:23 PM EST) [facility] UPPER GI ENDOSCOPY [facility] Endoscopy Procedure Date: 03/16/2023 12:23 PM ? Patient Name: Jennifer Irving ? N: [id number] ? Date of : 1960 ? Age: 62 ? Order #: [id number] ? Instrument Name: [id number] ? Procedure: ? Upper GI endoscopy Providers: [...] 03/16/2023 12:2 3 PM EST Ana Gillespie SNOW GROOMER GENERAL SURGICAL ORD ERABLES PROVATION * POCT Glucose (03/16/2023 12:05 PM EST) Glucose, POC 104 65 - 199 mg/dL [facility] Comment: Supplemental ranges: <140 mg/dL before meals <180 mg/dL all other times of the day Blood 03/16/2023 12:0 5 PM EST 03/16/2023 12:05 PM EST David Dejesus MD POINT OF CARE TEST [place] [address] documented in this encounter Visit Diagnoses Diagnosis [...] RN) documented in this encounter Care Teams Postulant Relationship Specialty Start Date End Date Ana Gillespie APRN [address] [place] [address] PCP - General Family Medicine 02/03/19 documented as of this encounter
--- OUTSIDE RECORDS SUMMARY | 2024-04-19 22:55 | XMS_ITS | Encounter Summary ---
Author Organization [facility] Address [facility] [place] [address] Care Team Providers Care Md Do Resident Urgent Care Name Role Phone Ana Gillespie VAUGHN Primary Care Provider [phone] Encounter Details Date Type Department Care Team (Late st Contact Info) Description 03/30/2023 4:30 PM EST - 03/30/2023 5:00 PM EST Surgery Gastroenterology at [facility] [place] [address] David Dejesus MD [facility] [place] [address] EGD,WITH DILATION ESOPHAGUS WITH BALLOON,< 30 MM [...] the day after the procedure, use an exrx-vah-fexkqho spray to numb your throat. Sucking on [...] occurs, please contact your Doctor. Please call [phone] before 8pm Mon-Fri with problems, questions or concerns. If you call after 8pm or on weekends, call the Hospital at [phone] and ask to speak to the Management Nurse Rn cement mason apprentice and the central office operator will contact that person for you. [...] learn more? [facility] View your After Visit Summary and more online at [email or web address] If you would like to provide feedback about your hospital experience, please call the Office of Patient and Family Relations at . If you have received this After Visit Summary in error, please immediately return it in person to the department, or notify the [facility] Privacy Office by calling toll free at between the hours of 8AM and 5PM to arrange for our retrieval of the documents at no cost to you. Content Version: 12.2 ?? 2786-[address]. Care instructions adapted under license by [facility]. If you have questions about a medical condition or this instruction, always ask your healthcare professional. [employer] disclaims any warranty or liability for [...] the day after the procedure, use an zuug-etm-mudvgtd spray to numb your throat. Sucking on [...] occurs, please contact your Doctor. Please call [phone] before 8pm Mon-Fri with problems, questions or concerns. If you call after 8pm or on weekends, call the Hospital at [phone] and ask to speak to the Management Nurse Rn cement mason apprentice and the central office operator will contact that person for you. When should you call for help? Call [phone] anytime you think you may need emergency [...] learn more? [facility] View your After Visit Summary and more online at [email or web address] If you would like to provide feedback about your hospital experience, please call the Office of Patient and Family Relations at . If you have received this After Visit Summary in error, please immediately return it in person to the department, or notify the [facility] Privacy Office by calling toll free at between the hours of 8AM and 5PM to arrange for our retrieval of the documents at no cost to you. Content Version: 12.2 ?? 2934-1908 [employer]. Care instructions adapted under license by [facility]. If you have questions about a medical condition or this instruction, always ask your healthcare professional. [employer] disclaims any warranty or liability for [...] meter kit. 1 each 0 12/14/2014 Insulin [place], Disposable, (BD INSULIN PEN NEEDLE UF MINI) [...] 04/26/2024 8:30 AM [place] [phone] Gavin Carrillo MD [facility] [place] [address] 06/05/2024 1:20 PM EST Office Visit Cardiology at [address] [phone] Milagros Hernandez MD [facility] [place] [address] Scheduled Procedures Name Priority Associated Diagnoses Date/Ti me EGD, UPPER GI ENDOSCOPY (WRV U 2.09) Peptic stricture of esophagus documented as of this encounter Procedures Procedure Name Priority Date/Time Associated Diagnosis Comments Up Gi Endoscopy, Ball Dil, 30Mm (62910) 03/30/2023 6:02 PM EST Peptic stricture of esophagus UPPER GI ENDOSCOPY Routine 03/30/2023 5: 58 PM EST documented in this encounter Results * UPPER GI ENDOSCOPY (03/30/2023 5:58 PM EST) Pathologist [facility] UPPER GI ENDOSCOPY [facility] Endoscopy Procedure Date: 03/30/2023 5:58 PM ? Patient Name: Jennifer Irving ? N: [id number] ? Date of : 1960 ? Age: 62 ? Order #: [id number] ? Instrument Name: [id number] ? Procedure: ? Upper GI endoscopy Indications: ? Stenosis of the esophagus Providers: ? David Dejesus MD, Jennifer Howell ? Theodora Garibay, ? Vat Cleaner Referring : ?Ana Keith: ? Propofol per [...] PROVATION 03/30/2023 5:58 PM EST Ana Gillespie CORPORATE CONCIERGE GENERAL SURGICAL ORD ERABLES PROVATION documented in [...] CRNA) documented in this encounter Care Teams Md Do Resident Urgent Care Relationship Specialty Start Date End Date Ana Gillespie APRN [address] [place] [address] PCP - General Family Medicine 02/03/19 documented as of this encounter
--- OUTSIDE RECORDS SUMMARY | 2024-04-19 22:55 | XMS_ITS | Encounter Summary ---
Author Organization [facility] [place] [address] Care Team Providers Care Pinion And Wheel Truer Name Role Phone Ana Gillespie STAFFING ANALYST Primary Care Provider [phone] Encounter Details Date Type Department Care Team (Late st Contact Info) Description 03/01/2023 Telephone [place] [phone] Parris Maravilla Social History Tobacco Use Types [...] 04/26/2024 8:30 AM [place] [phone] Gavin Carrillo MD [facility] DR [place] [address] 06/05/2024 1:20 PM EST Office Visit Cardiology at [address] [phone] Milagros Hernandez MD [facility] [place] [address] Scheduled Procedures Name Priority Associated Diagnoses Date/Ti me EGD, UPPER GI ENDOSCOPY (WRV U 2.09) Peptic stricture of esophagus documented as of this encounter Visit Diagnoses Not on filedocumented in this encounter Care Teams Pinion And Wheel Truer Relationship Specialty Start Date End Date Ana Gillespie APRN [address] [place] [address] PCP - General Family Medicine 02/03/19 documented as of this encounter
--- OUTSIDE RECORDS SUMMARY | 2024-04-19 22:55 | XMS_ITS | Encounter Summary ---
Author Organization [facility] Address [facility] [place] [address] Care Team Providers Care Chair Car Driver Name Role Phone Ana Gillespie APRN Primary Care Provider [phone] Encounter Details Date Type Department Care Team (Late st Contact Info) Description 03/09/2023 Notes [place] [phone] Masha Adkins MD [facility] [place] [address] Social History Tobacco Use Types Packs/Day Years [...] placed. Patient's in agreement with plan. Masha (Christos) Lucille MARTE Seed And Fertilizer Specialist PGY4 documented in this encounter Plan of Treatment Upcoming Encounters Date Type Department Care Team (Late st Contact Info) Description 04/26/2024 8:30 AM EST [place] [address] Gavin Carrillo MD [facility] [place] [address] 06/05/2024 1:20 PM EST Office Visit Cardiology at [address] [phone] Milagros Hernandez MD [facility] [place] [address] Scheduled Orders Name Type Priority Associated Diagnoses [...] esophagus documented in this encounter Care Teams Chair Car Driver Relationship Specialty Start Date End Date Ana Gillespie APRN [address] [place] [address] PCP - General Family Medicine 02/03/19 documented as of this encounter
--- OUTSIDE RECORDS SUMMARY | 2024-04-19 22:55 | XMS_ITS | Encounter Summary ---
Author Organization [facility] Address [facility] [place] [address] Care Team Providers Care Negative Retoucher Name Role Phone Ana Gillespie APRN Primary Care Provider [phone] Encounter Details Date Type Department Care Team (Late st Contact Info) Description 01/12/2023 8:06 AM EDT Anesthesia [place] [address] Bogdan Song MD [facility] [place] [address] Cristine Gomez CRNA [facility] [place] [address] Anesthesia Record Procedure Summary Procedure Name Responsible [...] dorsal arch vein (top of foot), left; edgx-gfg-dojcmu catheter system; Anatomical Landmarks; US Not Used; [...] EDT Department of Anesthesiology Post-procedure Note Patient: Jenniefr Irving Procedure Summary Date: 01/12/23 Room / Location: [facility] ENDO 2 / [facility] ENDOSCOPY Anesthesia Start: 805 Anesthesia Stop: 919 Procedure: EGD,WITH DILATION ESOPHAGUS WITH BALLOON,< 30 MM (WRVU 2.67) (Trunk) Diagnosis: Peptic stricture of esophagus (peptic stricture - needs dilation under anestheszi in 10-14 days) Surgeons: David Dejesus MD Responsible Provider: Bogdan Song MD Anesthesia Type: MAC ASA Status: 2 All Anesthesia Providers: Anesthesiologist: Bogdan Song MD NAVAL AIRCREWMAN: Chiquis Burnham CRNA Student Nurse Electrical Transmission Engineer: Irwin Novak Vitals Value Taken Time BP 113/54 01/12/23 0955 Temp Pulse Resp 17 01/12/23 0955 SpO2 97 % 01/12/23 0955 Pain Level 0 01/12/23 0940 [facility] Level of Consciousness: Awake and Alert Pain [...] Procedure(s): EGD, [facility] Patient Active Problem List [...] Aiden Flores MD at [facility] ??? PRO COLONOSCOPY, BIOPSY N/A 03/20/2016 COLONOSCOPY [...] risks discussed with patient. Plan discussed with NAVAL AIRCREWMAN and attending. Anesthesia Screening documented in this encounter Plan of Treatment Upcoming Encounters Date Type Department Care Team (Late st Contact Info) Description 04/26/2024 8:30 AM EST [place] [address] Gavin Carrillo MD [facility] [place] [address] 06/05/2024 1:20 PM EST Office Visit Cardiology at [address] [phone] Milagros Hernandez MD [facility] [place] [address] Scheduled Procedures Name Priority Associated [...] PRN, Starting on Wed01/12/23 at 0811, Until Wed01/12/23 at 1145, Anesthesia Intra-op, Routine [...] PRN, Starting on Wed01/12/23 at 0829, Until Wed01/12/23 at 1145, Anesthesia Intra-op, Routine Given 01/12/2023 8:29 AM EDT 100 mg documented in this encounter Care Teams Negative Retoucher Relationship Specialty Start Date End Date Ana Gillespie APRN [address] [place] [address] PCP - General Family Medicine 02/03/19 documented as of this encounter
--- OUTSIDE RECORDS SUMMARY | 2024-04-19 22:55 | XMS_ITS | Encounter Summary ---
Author Organization Formerly [facility] [place] [address] Care Team Providers Care Assistant Manager Of Operations Name Role Phone Ana Gillespie APRN Primary Care Provider [phone] Encounter Details Date Type Department Care Team (Late st Contact Info) Description 03/30/2023 6:01 PM EST Anesthesia [place] [id number] Betty Bhagat MD [facility] [address] ANESTHESIOLOGY [place] [address] Cristine Gomez CRNA [facility] [address] ANESTHESIOLOGY [place] [address] Anesthesia Record Procedure Summary Procedure Name Responsible [...] Procedure Summary Date: 03/30/23 Room / Location: [facility] ENDO 2 / [facility] ENDOSCOPY Anesthesia Start: 1800 Anesthesia Stop: Procedure: EGD,WITH DILATION ESOPHAGUS WITH BALLOON,< 30 MM (WRVU 2.67) (Trunk) Diagnosis: Peptic stricture of esophagus (peptic stricture dilation - please schedule Wednesday before ) Surgeons: David Dejesus MD Responsible Provider: Betty Bhagat MD Anesthesia Type: general ASA Status: 3 All Anesthesia Providers: Anesthesiologist: Betty Bhagat MD [employer]: Cristine Gomez CRNA Vitals Value Taken Time [...] y.o. female. Procedure(s): E[facility], [facility] Patient Active Problem List [...] IR G-Tube Check/Change 11/27/2022 Hang Cooper PA [facility] INTERVENTIONL RAD ??? IR G-TUBE CHECK/CHANGE 03/10/2023 IR G-Tube Check/Change 03/10/2023 Geronimo Chambers, [facility] INTERVENTIONL RAD ??? IR G-TUBE PLACEMENT 09/11/2022 IR G-Tube Placement 09/11/2022 Moustapha Hart MD [facility] INTERVENTIONL RAD ??? IR SUTURE RELEASE 09/25/2022 IR Suture Release 09/25/2022 Yoselin Ghosh PA [facility] INTERVENTIONL RAD ??? PERCUTANEOUS GASTROSTOMY N/A 09/11/2022 PERCUTANEOUS GASTROSTOMY performed by Aiden Flores MD at [facility] CATY ??? PRO COLONOSCOPY, BIOPSY N/A 03/20/2016 COLONOSCOPY FLEXIBLE, WITH BX performed by David Dejesus MD at [facility] ENDOSCOPY ??? PRO COLONOSCOPY, DIAGNOSTIC N/A 03/01/2020 COLONOSCOPY, DIAGNOSTIC performed by David Dejesus MD at [facility] ENDOSCOPY ??? PRO ENDOSCOPIC US EXAM, ESOPH N/A 03/31/2022 UPPER EUS- ENDOSCOPIC ULTRASOUND performed by David Dejesus MD at [facility] ENDOSCOPY ??? PRO UP GI ENDOSCOPY, BALL DIL, 30MM N/A 12/24/2022 EGD,WITH DILATION ESOPHAGUS WITH BALLOON,< 30 MM (WRVU 2.67) performed by David Dejesus [facility] ENDOSCOPY ??? PRO UP GI ENDOSCOPY, BALL DIL, 30MM N/A 01/12/2023 EGD,WITH DILATION ESOPHAGUS WITH BALLOON,< 30 MM (WRVU 2.67) performed by David Dejesus [facility] ENDOSCOPY ??? PRO UP GI ENDOSCOPY, BALL DIL, 30MM N/A 02/26/2023 EGD,WITH DILATION ESOPHAGUS WITH BALLOON,< 30 MM (WRVU 2.67) performed by David Dejesus [facility] ENDOSCOPY ??? PRO UP GI ENDOSCOPY, BALL DIL, 30MM N/A 03/16/2023 EGD,WITH DILATION ESOPHAGUS WITH BALLOON,< 30 MM (WRVU 2.67) performed by David Dejesus [facility] ENDOSCOPY ??? PRO UPPER GI ENDOSCOPY, BIOPSY N/A 04/03/2014 UPPER GASTROINTESTINAL ENDOSCOPY,WITH BIOPSY SINGLE OR MULTIPLE [facility]?? PRO UPPER GI ENDOSCOPY, BIOPSY N/A 03/20/2016 EGD WITH BIOPSY performed by David Dejesus MD at [facility] ENDOSCOPY ??? PRO UPPER GI ENDOSCOPY, BIOPSY N/A 11/22/2018 EGD WITH BIOPSY (WRVU 2.49) performed by David Dejesus MD at [facility] ENDOSCOPY ??? PRO UPPER GI ENDOSCOPY, BIOPSY N/A 03/01/2020 UPPER GASTROINTESTINAL ENDOSCOPY,WITH BIOPSY SINGLE OR MULTIPLE (WRVU 2.49) performed by David Dejesus MD at [facility] ENDOSCOPY ??? PRO UPPER GI ENDOSCOPY, BIOPSY N/A 09/23/2021 EGD WITH BIOPSY (WRVU 2.49) performed by David Dejesus MD at [facility] ENDOSCOPY ??? PRO UPPER GI ENDOSCOPY, BIOPSY N/A 03/31/2022 EGD WITH BIOPSY (WRVU 2.49) performed by David Dejesus MD at [facility] ENDOSCOPY ??? PRO UPPER GI ENDOSCOPY, BIOPSY N/A 07/03/2022 EGD WITH BIOPSY (WRVU 2.49) performed by David Dejesus MD at [facility] ENDOSCOPY ??? PRO UPPER GI ENDOSCOPY, DIAGNOSTIC N/A 04/03/2014 EGD, UPPER GI ENDOSCOPY performed by David Dejesus MD at [facility] ENDOSCOPY ??? PRO UPPER GI ENDOSCOPY, DIAGNOSTIC N/A 03/01/2020 EGD, UPPER GI ENDOSCOPY performed by David Dejesus MD at [facility] ENDOSCOPY ??? PRO UPPER GI ENDOSCOPY, DIAGNOSTIC N/A 09/09/2022 EGD, UPPER GI ENDOSCOPY (WRVU 2.09) performed by Ayo Russ MD at [facility] MAIN OR Social History Tobacco Use ??? [...] risks discussed with patient. Plan discussed with VP [employer] and attending. Anesthesia Screening documented in this encounter Plan of Treatment Upcoming Encounters Date Type Department Care Team (Late st Contact Info) Description 04/26/2024 8:30 AM EST [place] [address] Gavin Carrillo MD [facility] INTERVENTIONAL [place] [address] 06/05/2024 1:20 PM EST Office Visit Cardiology at [address] [address] Milagros Hernandez MD [facility] [place] [address] Scheduled Procedures Name Priority Associated [...] mg documented in this encounter Care Teams Assistant Manager Of Operations Relationship Specialty Start Date End Date Ana Gillespie APRN [address] [place] [address] PCP - General Family Medicine 02/03/19 documented as of this encounter
--- OUTSIDE RECORDS SUMMARY | 2024-04-19 22:55 | XMS_ITS | Encounter Summary ---
Author Organization Formerly [facility] Address [facility] [place] [address] Care Team Providers Care Lamp Stack Developer Name Role Phone Ana Gillespie APRN Primary Care Provider [phone] Encounter Details Date Type Department Care Team (Late st Contact Info) Description 02/26/2023 2:00 PM EDT - 02/26/2023 2:30 PM EDT [place] [phone] David Dejesus MD [facility] [place] [address] EGD,WITH DILATION ESOPHAGUS WITH BALLOON,< 30 MM [...] the day after the procedure, use an htvv-gqg-dlgainc spray to numb your throat. Sucking on [...] occurs, please contact your Doctor. Please call [phone] before 8pm Mon-Fri with problems, questions or concerns. If you call after 8pm or on weekends, call the Hospital at [phone] and ask to speak to the Streetsweeper Operator medical device sales consultant and the casting machine service operator will contact that person for you. [...] Where can you learn more? [facility] View your After Visit Summary and [...] cost to you. Content Version: 12.2 ?? [id number] [employer]. Care instructions adapted under license by [facility]. If you have questions about a medical condition or this instruction, always ask your healthcare professional. [employer] disclaims any warranty or liability for your [...] meter kit. 1 each 0 12/14/2014 Insulin Crystal, Disposable, (BD INSULIN PEN NEEDLE UF MINI) 31 x 3/16 NeedleIndications:Di abetes mellitus type 2, uncontrolled 1 Device by Misc.(Non-Drug; Combo Route) route 3 times daily as needed. 100 each 11 12/13/2014 sucralfate (Carafate) 1 gram tablet Take 1 tablet by mouth 4 times daily. 360 tablet 3 10/22/2022 03/23/2024 metoprolol succinate XL (Toprol-XL) 50 mg ER [...] glucose meter kit. 1 each 0 Insulin Crystal, Disposable, (BD INSULIN PEN NEEDLE UF MINI) [...] 04/26/2024 8:30 AM [place] [address] Gavin Carrillo MD [facility] [place] [address] 06/05/2024 1:20 PM EST Office Visit Cardiology at [address] [address] Milagros Hernandez MD [facility] [place] [address] Scheduled Procedures Name Priority Associated Diagnoses Date/Ti me EGD, UPPER GI ENDOSCOPY (WRV U 2.09) Peptic stricture of esophagus documented as of this encounter Procedures Procedure Name Priority Date/Time Associated Diagnosis Comments Up Gi Endoscopy, Ball Dil, 30Mm (07[address]) 02/26/2023 2:09 PM EDT Peptic stricture of esophagus POCT GLUCOSE Routine 02/26/2023 1:28 PM EDT documented in this encounter Results * POCT Glucose (02/26/2023 1:28 PM EDT) Glucose, POC 71 65 - 199 mg/dL [facility] Comment: Supplemental ranges: <140 mg/dL before meals <180 mg/dL all other times of the day Blood 02/26/2023 1:28 PM EDT 02/26/2023 1:28 PM EDT David Dejesus MD POINT OF CARE TEST ORDERABLES [facility] [place] [address] documented in this encounter Visit Diagnoses Diagnosis [...] RN) documented in this encounter Care Teams Lamp Stack Developer Relationship Specialty Start Date End Date Ana Gillespie APRN [address] [place] [address] PCP - General Family Medicine 02/03/19 documented as of this encounter
--- OUTSIDE RECORDS SUMMARY | 2024-04-19 22:55 | XMS_ITS | Encounter Summary ---
[place] [address] Care Team Providers Care Director Hris Name Role Phone Ana Gillespie VAUGHN Primary Care Provider [phone] Reason for Referral * Diagnostic Test (Routine) - Closed Specialty Diagnoses / Procedures Referred By Esperanza t Referred To Contact Radiology Diagnoses Neuroleptic-induced parkinsonism Procedures IR G-Tube Check/Change AtascosaFannie merritt PA [facility] DR INTERVENTIONAL [place] [address] [facility] [place] [address] Referral ID Status Reason Start Date Expiration Date V isits Requested Visits Authorized [id number] Closed Specialty Service Requested 04/05/2023 10/03/2024 1 1 Reason for Visit * Diagnostic Test (Routine) - Closed Specialty Diagnoses / Procedures Referred By Contjovani t Referred To Contact Radiology Diagnoses Neuroleptic-induced parkinsonism Procedures IR G-Tube Check/Change [place]ascos[place]Fannie merritt PA [facility] INTERVENTIONAL [place] [address] [facility] [place] [address] Referral ID Status Reason Start Date Expiration Date V isits Requested Visits Authorized [id number] Closed Specialty Service Requested 04/05/2023 10/03/2024 1 1 Encounter Details Date Type Department Care Team (Latest Contact Info) Description 04/06/2023 1:11 PM EST - 04/06/2023 11:59 PM EST Hospital Encounter Radiology at [facility] [place] [address] Moustapha Hart MD [facility] [address] INTERVENTIONAL [place] [address] Neuroleptic-induced parkinsonism Discharge Disposition: Home Social History [...] or its attachments. INTERVENTIONAL RADIOLOGY PHONE NUMBERS [phone] If you have a NON Low profile feeding tube, call with any questions or concerns. During regular office hours call: [phone]. If it is after regular office hours, weekends or holidays, please call [phone] and ask to speak to the Register Repairer mason tender for Interventional Radiology. If you have a low profile ???ESTRELLITA-FAM?? feeding tube, please call Dejah Stauffer RN for any issues: [phone]. Revised 02/23/19 documented in this encounter Medications [...] meter kit. 1 each 0 12/14/2014 Insulin [place], Disposable, (BD INSULIN PEN NEEDLE UF MINI) [...] of : 1960 AGE: 62 y.o. Address: [address] [address] (home) Mobile: Telephone Information: Referring Provider: Fannie Conde REASON FOR VISIT: Order Questions Answers Where will study be performed? [facility] Radiology [120] Is the patient on anticoagulant / antiplatelet therapy ? No Reason for exam and clinical history: 62F with G-tube (last exchanged 03/10), 16- Fr dsp-gpc-aqgeidd (ESTRELLITA). G-tube locked up overnight 04/04 - [facility] pulled the g tube and the balloon [...] G-Tube Exchange local 04/06/23 G-Tube Exchange Local [facility] [address]4 to procedure room 2 via stretcher. [...] Questions Answers Where will study be performed? [facility] Radiology [120] Is the patient on anticoagulant / antiplatelet therapy ? No Reason for exam and clinical history: 62F with G-tube (last exchanged 03/10), 16- Fr bjl-bfk-xemkxkd (ESTRELLITA). G-tube locked up overnight 04/04 - [facility] pulled the g tube and the balloon exploded in her. They put a barba cath in History of Present Illness: Per chart review, Jennifer Irving is a 62 y.o. female presenting to Interventional Radiology to undergo G-tube check/exchange in the setting of dislodged catheter. Per report, patient presented to [facility] and they pulled the catheter and the [...] glucose meter kit. 1 each 0 Insulin [place], Disposable, (BD INSULIN PEN NEEDLE UF MINI) 31 x 3/16 Needle 1 Device by [facility]Non-Drug; Combo Route) route 3 times daily as [...] IR G-Tube Check/Change 11/27/2022 Hang Cooper PA [facility] INTERVENTIONL RAD IR G-TUBE CHECK/CHANGE 03/10/2023 IR G-Tube Check/Change 03/10/2023 Geronimo Chambers DO [facility] INTERVENTIONL RAD IR G-TUBE PLACEMENT 09/11/2022 IR G-Tube Placement 09/11/2022 Moustapha Hart MD [facility] INTERVENTIONL RAD IR SUTURE RELEASE 09/25/2022 IR Suture Release 09/25/2022 Yoselin Ghosh PA [facility] INTERVENTIONL RAD PERCUTANEOUS GASTROSTOMY N/A 09/11/2022 PERCUTANEOUS GASTROSTOMY performed by Aiden Flores MD at [facility] CATY PRO COLONOSCOPY, BIOPSY N/A 03/20/2016 COLONOSCOPY FLEXIBLE, WITH BX performed by David Dejesus MD at [facility] ENDOSCOPY PRO COLONOSCOPY, DIAGNOSTIC N/A 03/01/2020 COLONOSCOPY, DIAGNOSTIC performed by David Dejesus MD at [facility] ENDOSCOPY PRO ENDOSCOPIC US EXAM, ESOPH N/A 03/31/2022 UPPER EUS- ENDOSCOPIC ULTRASOUND performed by David Dejesus MD at [facility] ENDOSCOPY PRO UP GI ENDOSCOPY, BALL DIL, 30MM N/A 12/24/2022 EGD,WITH DILATION ESOPHAGUS WITH BALLOON,< 30 MM (WRVU 2.67) performed by David Dejesus MDat [facility] ENDOSCOPY PRO UP GI ENDOSCOPY, BALL DIL, 30MM N/A 01/12/2023 EGD,WITH DILATION ESOPHAGUS WITH BALLOON,< 30 MM (WRVU 2.67) performed by David Dejesus MDat [facility] ENDOSCOPY PRO UP GI ENDOSCOPY, BALL DIL, 30MM N/A 02/26/2023 EGD,WITH DILATION ESOPHAGUS WITH BALLOON,< 30 MM (WRVU 2.67) performed by David Dejesus MDat [facility] ENDOSCOPY PRO UP GI ENDOSCOPY, [...] at [facility] ENDOSCOPY PRO UPPER GI ENDOSCOPY, BIOPSY N/A 11/22/2018 EGD WITH BIOPSY (WRVU 2.49) performed by David Dejesus MD at [facility] ENDOSCOPY PRO UPPER GI ENDOSCOPY, BIOPSY N/A 03/01/2020 UPPER GASTROINTESTINAL ENDOSCOPY,WITH BIOPSY SINGLE OR MULTIPLE (WRVU 2.49) performed by David Dejesus MD at [facility] ENDOSCOPY PRO UPPER GI ENDOSCOPY, BIOPSY N/A 09/23/2021 EGD WITH BIOPSY (WRVU 2.49) performed by David Dejesus MD at [facility] ENDOSCOPY PRO UPPER GI ENDOSCOPY, BIOPSY N/A 03/31/2022 EGD WITH BIOPSY (WRVU 2.49) performed by David Dejesus MD at [facility] ENDOSCOPY PRO UPPER GI ENDOSCOPY, BIOPSY N/A 07/03/2022 EGD WITH BIOPSY (WRVU 2.49) performed by David Dejesus MD at [facility] ENDOSCOPY PRO UPPER GI ENDOSCOPY, DIAGNOSTIC N/A 04/03/2014 EGD, UPPER GI ENDOSCOPY performed by David Dejesus MD at [facility] ENDOSCOPY PRO UPPER GI ENDOSCOPY, DIAGNOSTIC N/A 03/01/2020 EGD, UPPER GI ENDOSCOPY performed by David Dejesus MD at [facility] ENDOSCOPY PRO UPPER GI ENDOSCOPY, DIAGNOSTIC N/A 09/09/2022 EGD, UPPER GI ENDOSCOPY (WRVU 2.09) performed by Ayo Russ MD at [facility] MAIN OR Social History and Habits: [...] 04/26/2024 8:30 AM [place] [address] Gavin [place]illo MD [facility] DR INTERVENTIONAL [place] [address] 06/05/2024 1:20 PM EST Office Visit Cardiology at [address] [phone] Milagros Hernandez MD [facility] [place] [address] Scheduled Procedures Name Priority Associated Diagnoses Date/Ti [...] procedure was performed under fluoroscopic guidance. ??A paint spraying machine operator helper fluoroscopic image was obtained. ??Contrast was injected through the barba catheter and another fluoroscopic image was obtained. ??Through the catheter, an 0.035 stiff angled glide wire was advanced. ??The catheter was removed. ??Over the wire, a new 16-Fr ovi-lno-vtxlgjw (ESTRELLITA) gastrostomy catheter was advanced. ??The retention balloon was inflated with 5 cc of sterile water. ??The gastrostomy was injected with contrast and repeat fluoroscopic image was obtained. ??A sterile dressing was applied. ?? Medications: 2% Lidocaine Jelly Topically Contrast: 10 cc Omnipaque 350, intra-enteric. Fluoroscopic Time: 0.2 minutes. Estimated Blood Loss: < 5 cc. Complications: ??No immediate. Findings: Placement of new 16-Fr pym-qtw-kgpnojo (ESTRELLITA) catheter positioned within the stomach. ?? [...] mLs documented in this encounter Care Teams Director Hris Relationship Specialty Start Date End Date Ana Gillespie APRN [address] [place] [address] PCP - General Family Medicine 02/03/19 documented as of this encounter
--- OUTSIDE RECORDS SUMMARY | 2024-04-19 22:55 | XMS_ITS | Encounter Summary ---
[place] [address] Care Team Providers Care Credit Card Control Clerk Name Role Phone Ana Gillespie VAUGHN Primary Care Provider [phone] Reason for Referral * Diagnostic Test (Routine) - Closed Specialty Diagnoses / Procedures Referred By Esperanza rodríguez Referred To Contact Radiology Diagnoses Farrell's esophagus with high grade dysplasia Gastrostomy tube in place Procedures IR G-Tube Check/Change Steven Harding MD [facility] [place] [address] [place] [address] Referral ID Status Reason Start Date Expiration Date V isits Requested Visits Authorized [id number] Closed Specialty Service Requested 03/09/2023 09/06/2024 1 1 Reason for Visit * Diagnostic Test (Routine) - Closed Specialty Diagnoses / Procedures Referred By Esperanza rodríguez Referred To Contact Radiology Diagnoses Farrell's esophagus with high grade dysplasia Gastrostomy tube in place Procedures IR G-Tube Check/Change Steven Harding MD [facility] [place] [address] [place] [address] Referral ID Status Reason Start Date Expiration Date V isits Requested Visits Authorized [id number] Closed Specialty Service Requested 03/09/2023 09/06/2024 1 1 Encounter Details Date Type Department Care Team (Latest Contact Info) Description 03/10/2023 12:57 PM EDT - 03/10/2023 11:59 PM EDT Hospital Encounter [place] [address] Azeem Alarcon MD [facility] [place] [address] Farrell's esophagus with high grade dysplasia; Gastrostomy [...] Jordan RN - 03/10/2023 4:17 PM EDT [facility] Interventional Radiology Discharge Instructions for Feeding Tube [...] or its attachments. INTERVENTIONAL RADIOLOGY PHONE NUMBERS [phone] If you have a NON Low profile feeding tube, call with any questions or concerns. During regular office hours call: [phone]. If it is after regular office hours, weekends or holidays, please call [phone] and ask to speak to the Fine Jewelry Sales Associate press set up person for Interventional Radiology. If you have a low profile ???ESTRELLITA-BARLOW?? feeding tube, please call Dejah Stauffer RN for any issues: [phone]. Revised 02/23/19 documented in this encounter Medications [...] meter kit. 1 each 0 12/14/2014 Insulin [place], Disposable, (BD INSULIN PEN NEEDLE UF MINI) [...] of : 1960 AGE: 62 y.o. Address: [address] [address] Phone: There are no phone numbers on file. Mobile: Telephone Information: Referring Provider: Steven Harding REASON FOR VISIT: G-tube check/exchange Order Questions Answers Where will study be performed? [facility] Radiology [120] Is the patient [...] 04/26/2024 8:30 AM EST Appointment [place] [address] Gavin [place]illo MD [facility] DR INTERVENTIONAL RADIOLOGY [place], [place] [address] 06/05/2024 1:20 PM EST Office Visit Cardiology at [address] [address] Milagros Hernandez MD [facility] [place] [address] Scheduled Procedures Name Priority Associated [...] procedure was performed under fluoroscopic guidance. ??A delivery assistant fluoroscopic image was obtained. ??Contrast was injected through the gastrostomy catheter and another fluoroscopic image was obtained. ??Through the catheter, an 0.035 Amplatz wire was advanced. ??The catheter was removed. ??Over the wire, a new 16-Fr rmd-cvx-kuyjsss (ESTRELLITA) gastrostomy catheter was advanced. ??The retention [...] gastric lumen. ?? Exchange for new 16-Fr zwi-uhw-mtseypg (ESTRELLITA) catheter positioned within the stomach. ?? Impression: Successful gastrostomy catheter exchange. ??The catheter may be used immediately. Resident/Fellow: None. Attending: Dr. Geronimo Chambers. I, Dr. Chambers, was present throughout the procedure. Azeem Alarcon MD [facility] IR ORDERABLES * POCT Glucose (03/10/2023 3:25 PM EDT) Glucose, POC 76 65 - 199 mg/dL [facility] Comment: Supplemental ranges: <140 mg/dL before meals <180 mg/dL all other times of the day Blood 03/10/2023 3:25 PM EDT 03/10/2023 3:25 PM EDT Azeem Alarcon MD POINT OF CARE TEST O RDERABLES [facility] [place] [address] documented in this encounter Visit Diagnoses Diagnosis [...] mLs documented in this encounter Care Teams Credit Card Control Clerk Relationship Specialty Start Date End Date Ana Gillespie APRN [address] [place] [address] PCP - General Family Medicine 02/03/19 documented as of this encounter
--- OUTSIDE RECORDS SUMMARY | 2024-04-19 22:55 | XMS_ITS | Encounter Summary ---
Author Organization [facility] [place] [address] Care Team Providers Care Advertising Solicitor Name Role Phone Ana Gillespie VAUGHN Primary Care Provider [phone] Encounter Details Date Type Department Care Team (Late st Contact Info) Description 03/01/2023 Telephone [place] [address] Jessica Beckman Social History Tobacco Use Types [...] Campos rtnd call. Msg sent to Urgent Arts Administrator Or Manager to call him back to sched pt. documented in this encounter Plan of Treatment Upcoming Encounters Date Type Department Care Team (Late st Contact Info) Description 04/26/2024 8:30 AM EST Appointment [place] [phone] Gavin Carrillo MD [facility] [place] [address] 06/05/2024 1:20 PM EST Office Visit Cardiology at [address] [address] Milagros Hernandez MD [facility] [place] [address] Scheduled Procedures Name Priority Associated Diagnoses Date/Ti me EGD, UPPER GI ENDOSCOPY (WRV U 2.09) Peptic stricture of esophagus documented as of this encounter Visit Diagnoses Not on filedocumented in this encounter Care Teams Advertising Solicitor Relationship Specialty Start Date End Date Ana Gillespie APRN [address] [place] [address] PCP - General Family Medicine 02/03/19 documented as of this encounter
--- OUTSIDE RECORDS SUMMARY | 2024-04-19 22:55 | XMS_ITS | Encounter Summary ---
Author Organization [facility] Address [facility] [place] [address] Care Team Providers Care Campus Dean Name Role Phone Ana Gillespie VAUGHN Primary Care Provider [phone] Encounter Details Date Type Department Care Team (Latest Contact Info) Description 03/30/2023 2:12 PM EST - 03/30/2023 7:04 PM EST Hospital Encounter Gastroenterology at [facility] [place] [address] David Dejesus MD [facility] [place] [address] Discharge Disposition: Home Social History Tobacco Use [...] the day after the procedure, use an msbw-ckg-yabyqbq spray to numb your throat. Sucking on [...] occurs, please contact your Doctor. Please call [phone] before 8pm Mon-Fri with problems, questions or concerns. If you call after 8pm or on weekends, call the Hospital at [phone] and ask to speak to the Magazine Filler supervisor production and the acid etch operator will contact that person for you. When should you call for help? Call [phone] anytime you think you may need emergency [...] any problems. Where can you learn more? [facility] View your After Visit Summary and more online at [email or web address] If you would like to provide feedback about your hospital experience, please call the Office of Patient and Family Relations at . If you have received this After Visit Summary in error, please immediately return it in person to the department, or notify the [facility] Privacy Office by calling toll free at between the hours of 8AM and 5PM to arrange for our retrieval of the documents at no cost to you. Content Version: 12.2 ?? 0507-0581 [employer]. Care instructions adapted under license by [facility]. If you have questions about a medical condition or this instruction, always ask your healthcare professional. [employer] disclaims any warranty or liability for your [...] the day after the procedure, use an munl-kkl-uwculyy spray to numb your throat. Sucking on [...] occurs, please contact your Doctor. Please call [phone] before 8pm Mon-Fri with problems, questions or concerns. If you call after 8pm or on weekends, call the Hospital at [phone] and ask to speak to the Magazine Filler supervisor production and the acid etch operator will contact that person for you. [...] any problems. Where can you learn more? [facility] View your After Visit Summary and more online at [email or web address] If you would like to provide feedback about your hospital experience, please call the Office of Patient and Family Relations at . If you have received this After Visit Summary in error, please immediately return it in person to the department, or notify the [facility] Privacy Office by calling toll free at between the hours of 8AM and 5PM to arrange for our retrieval of the documents at no cost to you. Content Version: 12.2 ?? 2166-6095 [employer]. Care instructions adapted under license by [facility]. If you have questions about a medical condition or this instruction, always ask your healthcare professional. [employer] disclaims any warranty or liability for your [...] meter kit. 1 each 0 12/14/2014 Insulin [place], Disposable, (BD INSULIN PEN NEEDLE UF MINI) [...] 04/26/2024 8:30 AM [place] [phone] Gavin Carrillo MD [facility] [place] [address] 06/05/2024 1:20 PM EST Office Visit Cardiology at [address] [address] Milagros Hernandez MD [facility] [place] [address] Scheduled Procedures Name Priority Associated Diagnoses Date/Ti me EGD, UPPER GI ENDOSCOPY (WRV U 2.09) Peptic stricture of esophagus documented as of this encounter Procedures Procedure Name Priority Date/Time Associated Diagnosis Comments Up Gi Endoscopy, Ball Dil, 30Mm ([id number]) 03/30/2023 6:02 PM EST Peptic stricture of esophagus UPPER GI ENDOSCOPY Routine 03/30/2023 5: 58 PM EST documented in this encounter Results * UPPER GI ENDOSCOPY (03/30/2023 5:58 PM EST) Pathologist [facility] UPPER GI ENDOSCOPY [facility] Endoscopy Procedure Date: 03/30/2023 5:58 PM ? Patient Name: Jennifer Irving ? N: [id number] ? Date of : 1960 ? Age: 62 ? Order #: [id number] ? Instrument Name: [id number] ? Procedure: ? Upper GI endoscopy Indications: ? Stenosis of the esophagus Providers: ? David Dejesus MD, Jennifer Howell ? Theodora Garibay, ? Agency Development Manager Referring MD: ?Ana Cebix Medicines: ? Propofol per Anesthesia Complications: ? [...] PROVATION 03/30/2023 5:58 PM EST Ana Gillespie INSERT CUTTER GENERAL SURGICAL ORD ERABLES PROVATION documented in [...] CRNA) documented in this encounter Care Teams Campus Dean Relationship Specialty Start Date End Date Ana Gillespie APRN [address] [place] [address] PCP - General Family Medicine 02/03/19 documented as of this encounter
--- OUTSIDE RECORDS SUMMARY | 2024-04-19 22:55 | XMS_ITS | Encounter Summary ---
Author Organization [facility] Address [facility] [place] [address] Care Team Providers Care Logistics And Planning Manager Name Role Phone Ana Gillespie VAUGHN Primary Care Provider [phone] Encounter Details Date Type Department Care Team (Latest Contact Info) Description 03/16/2023 11:29 AM EST - 03/16/2023 2:40 PM EST Hospital Encounter Gastroenterology at [facility] [place] [address] David Dejesus MD [facility] [place] [address] Discharge Disposition: Home Social History Tobacco Use [...] the day after the procedure, use an bbtc-det-unsaleb spray to numb your throat. Sucking on [...] occurs, please contact your Doctor. Please call [phone] before 8pm Mon-Fri with problems, questions or concerns. If you call after 8pm or on weekends, call the Hospital at [phone] and ask to speak to the Seo Coordinator flight reservations manager and the chief console operator will contact that person for you. When should you call for help? Call 1 anytime you think you may need emergency [...] more? Visit our health information library at [email or web address]://Hire An Esquire/Trending Tasteo You can also view health information on [employer], your personal patient account. Log in or sign uptoday. Enter J014 in the search box to learn more about Esophageal Dilation: What to Expect at Home. Current as of: December 18, 2018Content Version: 12.4 ?? 5215-9135 [employer]. Care instructions adapted under license by [facility]. If you have questions about a medical condition or this instruction, always ask your healthcare professional. [employer] disclaims any warranty or liability for your [...] meter kit. 1 each 0 12/14/2014 Insulin [place], Disposable, (BD INSULIN PEN NEEDLE UF MINI) [...] 04/26/2024 8:30 AM [place] [phone] Gavin Carrillo MD [facility] [place] [address] 06/05/2024 1:20 PM EST Office Visit Cardiology at [address] [phone] Milagros Hernandez MD [facility] [place] [address] Scheduled Procedures Name Priority Associated Diagnoses Date/Ti me EGD, UPPER GI ENDOSCOPY (WRV U 2.09) Peptic stricture of esophagus documented as of this encounter Procedures Procedure Name Priority Date/Time Associated Diagnosis Comments Up Gi Endoscopy, Ball Dil, 30Mm ([id number]) 03/16/2023 1:03 PM EST Peptic stricture of esophagus UPPER GI ENDOSCOPY Routine 03/16/2023 12 :23 PM EST POCT GLUCOSE Routine 03/16/2023 12:05 PM EST documented in this encounter Results * UPPER GI ENDOSCOPY (03/16/2023 12:23 PM EST) [facility] UPPER GI ENDOSCOPY [facility] Endoscopy Procedure Date: 03/16/2023 12:23 PM ? Patient Name: Jennifer Irving ? N: [id number] ? Date of : 1960 ? Age: 62 ? Order #: [id number] ? Instrument Name: [id number]- [id number] ? Procedure: ? Upper GI endoscopy Providers: [...] 03/16/2023 12:2 3 PM EST Ana Gillespie LIFE SCIENCES DIRECTOR GENERAL SURGICAL ORD ERABLES PROVATION * POCT Glucose (03/16/2023 12:05 PM EST) Glucose, POC 104 65 - 199 mg/dL [facility] Comment: Supplemental ranges: <140 mg/dL before meals <180 mg/dL all other times of the day Blood 03/16/2023 12:0 5 PM EST 03/16/2023 12:05 PM EST David Dejesus MD POINT [place] [address] documented in this encounter Visit Diagnoses Not [...] RN) documented in this encounter Care Teams Logistics And Planning Manager Relationship Specialty Start Date End Date Ana Gillespie APRN [address] [place] [address] PCP - General Family Medicine 02/03/19 documented as of this encounter
--- OUTSIDE RECORDS SUMMARY | 2024-04-19 22:55 | XMS_ITS | Encounter Summary ---
Author Organization [facility] [place] [address] Care Team Providers Care Turnstile Collector Name Role Phone Ana Gillespie APRN Primary Care Provider [phone] Encounter Details Date Type Department Care Team (Late st Contact Info) Description 01/12/2023 Orders [place] [phone] David Dejesus MD [facility] [place] [address] Peptic stricture of esophagus Social History Tobacco [...] 04/26/2024 8:30 AM EST Appoint[place] [phone] Gavin Carrillo MD [facility] [place] [address] 06/05/2024 1:20 PM EST Office Visit Cardiology at [address] [phone] Milagros Hernandez MD [facility] [place] [address] Scheduled Procedures Name Priority Associated Diagnoses Date/Ti me EGD, UPPER GI ENDOSCOPY (WRV U 2.09) Peptic stricture of esophagus documented as of this encounter Visit Diagnoses Diagnosis Peptic stricture of esophagus Stricture and stenosis of esophagus documented in this encounter Care Teams Turnstile Collector Relationship Specialty Start Date End Date Ana Gillespie APRN [address] [place] [address] PCP - General Family Medicine 02/03/19 documented as of this encounter
--- OUTSIDE RECORDS SUMMARY | 2024-04-19 22:55 | XMS_ITS | Encounter Summary ---
Author Organization [facility] Address [facility] [place] [address] Care Team Providers Care Nascar Driver Name Role Phone Ana Gillespie APRN Primary Care Provider [phone] Encounter Details Date Type Department Care Team (Latest Contact Info) Description 02/26/2023 12:03 PM EDT - 02/26/2023 3:41 PM EDT Hospital En[place] [phone] David Dejesus MD [facility] [place] [address] Discharge Disposition: Home Social History Tobacco Use [...] the day after the procedure, use an fkvf-vwe-jwqmsjx spray to numb your throat. Sucking on [...] occurs, please contact your Doctor. Please call [phone] before 8pm Mon-Fri with problems, questions or concerns. If you call after 8pm or on weekends, call the Hospital at [phone] and ask to speak to the Mat Machine Operator fire control system installer and the relief operator will contact that person for you. [...] any problems. Where can you learn more? [facility] View your After Visit Summary and more online at [email or web address] If you would like to [...] cost to you. Content Version: 12.2 ?? 0557-8607 [employer]. Care instructions adapted under license by [facility]. If you have questions about a medical condition or this instruction, always ask your healthcare professional. [employer] disclaims any warranty or liability for your [...] strips. 300 each 3 12/14/2014 Blood-Glucose Meter (WeDemandTOUCH ULTRA2) KitIndications:Type 2 diabetes mellitus, uncontrolled by Other route. 1 = one blood glucose meter kit. 1 each 0 12/14/2014 Insulin [place], Disposable, (BD INSULIN PEN NEEDLE UF MINI) [...] glucose meter kit. 1 each 0 Insulin [place], Disposable, (BD INSULIN PEN NEEDLE UF MINI) [...] - 199 mg/dL ASSESSMENT AND PLAN Jennifer Orlando Irving is a 62 y.o. y/o who presents for endoscopic evaluation. Risks extensively discussed including bleeding, infection, reaction to anesthesia, perforation, and/or other unforseen complication. Consent signed and patient well informed of the risks of the procedure. documented in this encounter Plan of Treatment Upcoming Encounters Date Type Department Care Team (Late st Contact Info) Description 04/26/2024 8:30 AM [place] [address] Gavin Carrillo MD [facility] [place] [address] 06/05/2024 1:20 PM EST Office Visit Cardiology at [address] [phone] Milagros Hernandez MD [facility] [place] [place] [address] Scheduled Procedures Name Priority Associated Diagnoses Date/Ti me EGD, UPPER GI ENDOSCOPY (WRV U 2.09) Peptic stricture of esophagus documented as of this encounter Procedures Procedure Name Priority Date/Time Associated Diagnosis Comments Up Gi Endoscopy, Ball Dil, 30Mm ([id number]) 02/26/2023 2:09 PM EDT Peptic stricture of esophagus POCT GLUCOSE Routine 02/26/2023 1:28 PM EDT documented in this encounter Results * POCT Glucose (02/26/2023 1:28 PM EDT) Glucose, POC 71 65 - 199 mg/dL [facility] Comment: Supplemental ranges: <140 mg/dL before meals <180 mg/dL all other times of the day Blood 02/26/2023 1:28 PM EDT 02/26/2023 1:28 PM EDT David Dejesus MD POINT OF CARE TEST ORDERABLES [facility] [place] [address] documented in this encounter Visit Diagnoses Not [...] RN) documented in this encounter Care Teams Nascar Driver Relationship Specialty Start Date End Date Ana Gillespie APRN [address] [place] [address] PCP - General Family Medicine 02/03/19 documented as of this encounter
--- OUTSIDE RECORDS SUMMARY | 2024-04-19 22:55 | XMS_ITS | Encounter Summary ---
Author Organization [facility] [place] [address] Care Team Providers Care Multimedia Author Name Role Phone Ana Gillespie MARINE ELECTRONICS TECHNICIAN Primary Care Provider [phone] Encounter Details Date Type Department Care Team (Late st Contact Info) Description 03/01/2023 Telephone Gastroenterology at [facility] [place] [address] Parris Maravilla Social History Tobacco Use Types [...] Parris Maravilla - 03/01/2023 4:20 PM EDT Jennfier Irving [id number] Diagnosis/Indication: stricture dilation Please review patient chart [...] procedure? No You must have a responsible democrat who will drive you to your procedure, stay on campus for the entire duration of your procedure, and drive you home from your procedure. Who will likely be your belly dump driver for the procedure? *Please Verify the [...] 04/26/2024 8:30 AM EST [place] [address] Gavin Carrillo MD [facility] [address] [place]ION[place] [address] 06/05/2024 1:20 PM EST Office Visit Cardiology at [address] [phone] Milagros Hernandez MD [facility] [place] [address] Scheduled Procedures Name Priority Associated Diagnoses Date/Ti me EGD, UPPER GI ENDOSCOPY (WRV U 2.09) Peptic stricture of esophagus documented as of this encounter Visit Diagnoses Not on filedocumented in this encounter Care Teams Multimedia Author Relationship Specialty Start Date End Date Ana Gillespie APRN [address] [place] [address] PCP - General Family Medicine 02/03/19 documented as of this encounter
--- OUTSIDE RECORDS SUMMARY | 2024-04-19 22:55 | XMS_ITS | Encounter Summary ---
Author Organization [facility] [place] [address] Care Team Providers Care Aeronautical Engineering Professor Name Role Phone Ana Gillespie APRN Primary Care Provider Encounter Details Date Type Department Care Team (Late st Contact Info) Description 03/30/2023 Orders [place] [phone] David Dejesus MD [facility] [place] [address] Peptic stricture of esophagus Social History Tobacco [...] 04/26/2024 8:30 AM EST [place] [address] Gavin Carrillo MD [facility] [place] [address] 06/05/2024 1:20 PM EST Office Visit Cardiology at [address] [phone] Milagros Hernandez MD [facility] [place] [address] Scheduled Orders Name Type Priority Associated Diagnoses [...] esophagus documented in this encounter Care Teams Aeronautical Engineering Professor Relationship Specialty Start Date End Date Ana Gillespie APRN [address] [place] [address] PCP - General Family Medicine 02/03/19 documented as of this encounter
--- OUTSIDE RECORDS SUMMARY | 2024-04-19 22:55 | XMS_ITS | Encounter Summary ---
Author Organization [facility] [place] [address] Care Team Providers Care Black Top Spreader Machine Operator Name Role Phone Ana Gillespie VAUGHN Primary Care Provider [phone] Encounter Details Date Type Department Care Team (Late st Contact Info) Description 01/27/2023 Telephone [place] [phone] Parris Maravilla Social History Tobacco Use Types [...] 04/26/2024 8:30 AM [place] [phone] Gavin Carrillo MD [facility] [place] [address] 06/05/2024 1:20 PM EST Office Visit Cardiology at [address] [phone] Milagros Hernandez MD [facility] [place] [address] Scheduled Procedures Name Priority Associated Diagnoses Date/Ti me EGD, UPPER GI ENDOSCOPY (WRV U 2.09) Peptic stricture of esophagus documented as of this encounter Visit Diagnoses Not on filedocumented in this encounter Care Teams Black Top Spreader Machine Operator Relationship Specialty Start Date End Date Ana Gillespie APRN [address] [place] [address] PCP - General Family Medicine 02/03/19 documented as of this encounter
--- OUTSIDE RECORDS SUMMARY | 2024-04-19 22:55 | XMS_ITS | Encounter Summary ---
Author Organization [facility] Address [facility] [place] [address] Care Team Providers Care Forge Operator Name Role Phone Ana Gillespie VAUGHN Primary Care Provider [phone] Encounter Details Date Type Department Care Team (Late st Contact Info) Description 01/12/2023 7:30 AM EDT - 01/12/2023 8:00 AM EDT [place] [phone] David Dejesus MD [facility] [place] [address] EGD,WITH DILATION ESOPHAGUS WITH BALLOON,< 30 MM [...] the day after the procedure, use an bfgq-bzi-gdrduoe spray to numb your throat. Sucking on [...] occurs, please contact your Doctor. Please call [phone] before 8pm Mon-Fri with problems, questions or concerns. If you call after 8pm or on weekends, call the Hospital at [phone] and ask to speak to the Virtualization Consultant consulting psychologist and the foundation drill operator helper will contact that person for you. When should you call for help? Call [phone] anytime you think you may need emergency [...] any problems. Where can you learn more? [facility] View your After Visit Summary and more online at [email or web address] If you would like to provide feedback about your hospital experience, please call the Office of Patient and Family Relations at . If you have received this After Visit Summary in error, please immediately return it in person to the department, or notify the [facility] Privacy Office by calling toll free at between the hours of 8AM and 5PM to arrange for our retrieval of the documents at no cost to you. Content Version: 12.2 ?? 2551-8287 [employer]. Care instructions adapted under license by [facility]. If you have questions about a medical condition or this instruction, always ask your healthcare professional. [employer], [employer] disclaims any warranty or liability for your [...] meter kit. 1 each 0 12/14/2014 Insulin [place], Disposable, (BD INSULIN PEN NEEDLE UF MINI) [...] 04/26/2024 8:30 AM [place] [phone] Gavin Carrillo MD [facility] [place] [address] 06/05/2024 1:20 PM EST Office Visit Cardiology at [address] [phone] Milagros Hernandez MD [facility] [place] [address] Scheduled Procedures Name Priority Associated Diagnoses Date/Ti mn EGD, UPPER GI ENDOSCOPY (WRV U 2.09) Peptic stricture of esophagus documented as of this encounter Procedures Procedure Name Priority Date/Time Associated Diagnosis Comments Up Gi Endoscopy, Rick Chavez, 30Mm ([id number]) 01/12/2023 8:06 AM EDT Peptic stricture of esophagus POCT GLUCOSE Routine 01/12/2023 7:31 AM EDT documented in this encounter Results * POCT Glucose (01/12/2023 7:31 AM EDT) Glucose, POC 115 65 - 199 mg/dL [facility] Comment: Supplemental ranges: <140 mg/dL before meals <180 mg/dL all other times of the day Blood 01/12/2023 7:31 AM EDT 01/12/2023 7:31 AM EDT David Dejesus MD POINT OF CARE TEST ORDERABLES Performing Organization Address City/State/[facility] Co de Phone Number [facility] [place] [address] documented in this encounter Visit Diagnoses Diagnosis [...] Chiquis Burnham CRNA - Comment: Switch to gravity)7926 (Restarted - Provider: Chiquis Burnham CRNA) documented in this encounter Care Teams Forge Operator Relationship Specialty Start Date End Date Ana Gillespie APRN [address] [place] [address] PCP - General Family Medicine 02/03/19 documented as of this encounter
--- OUTSIDE RECORDS SUMMARY | 2024-04-19 22:55 | XMS_ITS | Encounter Summary ---
Author Organization [facility] [place] [place] [address] Care Team Providers Care Lead Cargo Mover Name Role Phone Ana Gillespie APRN Primary Care Provider [phone] Encounter Details Date Type Department Care Team (Late st Contact Info) Description 03/16/2023 Orders [place] [phone] David Dejesus MD [facility] [place] [address] Peptic stricture of esophagus Social History Tobacco [...] AM [place] [phone] Gavin Carrillo MD [facility] [place] [address] 06/05/2024 1:20 PM EST Office Visit Cardiology at [address] [phone] Milagros Hernandez MD [facility] [place] [address] Scheduled Orders Name Type Priority Associated Diagnoses [...] esophagus documented in this encounter Care Teams Lead Cargo Mover Relationship Specialty Start Date End Date Ana Gillespie APRN [address] [place] [address] PCP - General Family Medicine 02/03/19 documented as of this encounter
--- OUTSIDE RECORDS SUMMARY | 2024-04-19 22:55 | XMS_ITS | Encounter Summary ---
Author Organization [facility] [place] [address] Care Team Providers Care Cash Analyst Name Role Phone Ana Gillespie VAUGHN Primary Care Provider [phone] Reason for Visit * Reason Onset Date Comments Triage 02/24/2023 hypotension Encounter Details Date Type Department Care Team (Late st Contact Info) Description 02/24/2023 Telephone Cardiology at [address] [phone] Chela Inman buffet server (hypotension) Social History Tobacco Use Types Packs/Day [...] BP med(s). She can be reached at [phone]. Call placed to Campos, spouse & coronary care unit nurse to get more information for Dr Hernandez. [...] 04/26/2024 8:30 AM [place] [phone] Gavin Carrillo MD [facility] [place] [address] 06/05/2024 1:20 PM EST Office Visit Cardiology at [address] [phone] Milagros Hernandez MD [facility] [place] [address] Scheduled Procedures Name Priority Associated Diagnoses Date/Ti me EGD, UPPER GI ENDOSCOPY (WRV U 2.09) Peptic stricture of esophagus documented as of this encounter Visit Diagnoses Not on filedocumented in this encounter Care Teams Cash Analyst Relationship Specialty Start Date End Date Ana Gillespie APRN [address] [place] [address] PCP - General Family Medicine 02/03/19 documented as of this encounter
--- OUTSIDE RECORDS SUMMARY | 2024-04-19 22:55 | XMS_ITS | Encounter Summary ---
Author Organization [facility] [place] [address] Care Team Providers Care Field Reimbursement Manager Name Role Phone Ana Gillespie APRN Primary Care Provider [phone] Reason for Visit * Reason Onset Date Comments Questions 03/02/2023 Med changes at [facility] visit Encounter Details Date Type Department Care Team (Late st Contact Info) Description 03/02/2023 Telephone Cardiology at [address] [phone] Chela Walsh RN Questions (Med changes at [...] the hospital over the past weekend at [facility] for pneumonia. While there they restarted [...] AM [place] [phone] Gavin Carrillo MD [facility] [place] [address] 06/05/2024 1:20 PM EST Office Visit Cardiology at [address] [phone] Milagros Hernandez MD [facility] [place] [address] Scheduled Procedures Name Priority Associated Diagnoses Date/Ti me EGD, UPPER GI ENDOSCOPY (WRV U 2.09) Peptic stricture of esophagus documented as of this encounter Visit Diagnoses Not on filedocumented in this encounter Care Teams Field Reimbursement Manager Relationship Specialty Start Date End Date Ana Gillespie APRN [address] [place] [address] PCP - General Family Medicine 02/03/19 documented as of this encounter
--- OUTSIDE RECORDS SUMMARY | 2024-04-19 22:55 | XMS_ITS | Encounter Summary ---
Author Organization [facility] Address [facility] [place] [address] Care Team Providers Care Fiction Writer Name Role Phone Ana Gillespie APRN Primary Care Provider [phone] Reason for Visit * Consultation (Urgent) - Closed Specialty Diagnoses / Procedures Referred By Esperanza t Referred To Contact Cardiology Diagnoses Cardiac LV ejection fraction 30-35% Ana Gillespie APRN [address] [place] [address] [facility] [address] [address] [place] [phone] Referral ID Status Reason Start Date Expiration Date V isits Requested Visits Authorized [id number] Closed Consult, Test & Treat PCP Updated and/or Approved 11/23/2022 11/23/2023 12 12 Encounter Details Date Type Department Care Team (Latest Contact Info) Description 01/15/2023 11:20 AM EDT Office Visit Cardiology at [address] [phone] Milagros Hernandez MD [facility] [place] [address] Stress-induced cardiomyopathy (Primary Dx); HFrEF (heart failure [...] original note were not included. [facility] [place] [phone] CARDIOLOGY OUTPATIENT NOTE PRIMARY CARE PROVIDER: Ana [...] glucose meter kit. 1 each 0 Insulin [place], Disposable, (BD INSULIN PEN NEEDLE UF MINI) 31 x 3/16 Needle 1 Device by [facility].(Non-Drug; Combo Route) route 3 times daily as [...] putting in new L hip replacement at [facility] next week due to inadequate healing form [...] 450 QTC Calculated (Bezet) 426 Calculated P [place] 55 Calculated R [place] 56 Calculated T [place] 49 INTERPRETATION Sinus bradycardia Low voltage QRS [...] Sinus bradycardia, low voltage, otherwise normal TTE ([facility], 11/20/22): TTE (08/19/22): Interpretation Summary -Left ventricular [...] personal interpretation of testing results, medication reconciliation, efvy-eg-vcil interview, examination and counseling of the patient, coordination of care and documentation of the above. Thank you for the opportunity to participate in this patient's cardiovascular care. All questions were answered and I look forward to the next visit. Milagros Hernandez MD Cardiovascular Medicine [facility] 01/15/2023 documented in this encounter Plan of Treatment Upcoming Encounters Date Type Department Care Team (Late st Contact Info) Description 04/26/2024 8:30 AM [place] [address] Gavin Carrillo MD [facility] DR [place] [address] 06/05/2024 1:20 PM EST Office Visit Cardiology at [address] [phone] Milagros Hernandez MD [facility] [place] [place] [address] Scheduled Procedures Name Priority Associated Diagnoses Date/Ti [...] (Bezet) 426 ms MUSE SYSTEM Calculated P [place] 55 degrees MUSE SYSTEM Calculated R [place] 56 degrees MUSE SYSTEM Calculated T [place] 49 degrees MUSE SYSTEM INTERPRETATION Sinus bradycardia [...] fraction) documented in this encounter Care Teams Fiction Writer Relationship Specialty Start Date End Date Ana Gillespie APRN [address] [place] [address] PCP - General Family Medicine 02/03/19 documented as of this encounter
--- OUTSIDE RECORDS SUMMARY | 2024-04-19 22:55 | XMS_ITS | Encounter Summary ---
Author Organization [facility] [place] [address] Care Team Providers Care Development Analyst Name Role Phone Ana Gillespie VAUGHN Primary Care Provider [phone] Reason for Referral * Diagnostic Test (Routine) - Closed Specialty Diagnoses / Procedures Referred By Esperanza rodríguez Referred To Contact Radiology Diagnoses Neuroleptic-induced parkinsonism Procedures IR G-Tube Check/Change Fannie Conde PA [facility] [place] [address] [place] [address] Referral ID Status Reason Start Date Expiration Date V isits Requested Visits Authorized [id number] Closed Specialty Service Requested 04/05/2023 10/03/2024 1 1 Encounter Details Date Type Department Care Team (Late st Contact Info) Description 04/05/2023 [place] [phone] Fannie Conde PA [facility] [place] [address] Social History Tobacco Use Types Packs/Day Years [...] 04/26/2024 8:30 AM [place] [address] Gavin Carrillo MD [facility] DR INTERVENTIONAL RADIOLOGY [place], [place] [phone] 06/05/2024 1:20 PM EST Office Visit Cardiology at [address] [phone] Milagros Hernandez MD [facility] [place] [address] Scheduled Procedures Name Priority Associated [...] procedure was performed under fluoroscopic guidance. ??A check processor fluoroscopic image was obtained. ??Contrast was injected through the barba catheter and another fluoroscopic image was obtained. ??Through the catheter, an 0.035 stiff angled glide wire was advanced. ??The catheter was removed. ??Over the wire, a new 16-Fr xla-xrh-jxhixrm (ESTRELLITA) gastrostomy catheter was advanced. ??The retention balloon was inflated with 5 cc of sterile water. ??The gastrostomy was injected with contrast and repeat fluoroscopic image was obtained. ??A sterile dressing was applied. ?? Medications: 2% Lidocaine Jelly Topically Contrast: 10 cc Omnipaque 350, intra-enteric. Fluoroscopic Time: 0.2 minutes. Estimated Blood Loss: < 5 cc. Complications: ??No immediate. Findings: Placement of new 16-Fr dyu-vfi-agmsyqf (ESTRELLITA) catheter positioned within the stomach. ?? [...] Parkinsonism documented in this encounter Care Teams Development Analyst Relationship Specialty Start Date End Date Ana Gillespie APRN [address] [place] [address] PCP - General Family Medicine 02/03/19 documented as of this encounter
--- OUTSIDE RECORDS SUMMARY | 2024-04-19 22:55 | XMS_ITS | Encounter Summary ---
Author Organization [facility] Address [facility] [place] [address] Care Team Providers Care Coat Presser Name Role Phone Ana Gillespie APRN Primary Care Provider [phone] Encounter Details Date Type Department Care Team (Late st Contact Info) Description 02/26/2023 2:07 PM EDT Anesthesia [place] [phone] Rio Aceves MD [facility] [place] [address] Adrianna Barron MD [facility] [place] [address] Anesthesia Record Procedure Summary Procedure Name Responsible [...] Procedure Summary Date: 02/26/23 Room / Location: [facility] ENDO 2 / [facility] ENDOSCOPY Anesthesia Start: 1407 Anesthesia Stop: 1439 Procedure: EGD,WITH DILATION ESOPHAGUS WITH BALLOON,< 30 MM (WRVU 2.67) (Trunk) Diagnosis: Peptic stricture of esophagus (peptic stricture dilation - within two weeks) Surgeons: David Dejesus MD Responsible Provider: Rio Aceves MD Anesthesia Type: MAC ASA Status: 3 All Anesthesia Providers: Anesthesiologist: Rio Aceves MD PHP WEB DEVELOPER: Tapan Simpson CRNA Vitals Value Taken Time BP 115/50 02/26/23 1503 Temp Pulse Resp 16 02/26/23 1435 SpO2 95 % 02/26/23 1505 Pain Level 0 02/26/23 1435 Vitals shown include unfiled device data. Patient Location: PACU/[facility] Level of Consciousness: Awake and Alert [...] IR G-Tube Check/Change 11/27/2022 Hang Cooper PA [facility] INTERVENTIONL RAD ??? IR G-TUBE PLACEMENT 09/11/2022 IR G-Tube Placement 09/11/2022 Moustapha Hart MD [facility] INTERVENTIONL RAD ??? IR SUTURE RELEASE 09/25/2022 IR Suture Release 09/25/2022 Yoselin Ghosh PA [facility] INTERVENTIONL RAD ??? PERCUTANEOUS GASTROSTOMY N/A 09/11/2022 PERCUTANEOUS GASTROSTOMY performed by Aiden Flores MD at [facility] CATY ??? PRO COLONOSCOPY, BIOPSY N/A 03/20/2016 COLONOSCOPY FLEXIBLE, WITH BX performed by David Dejesus MD at [facility] ENDOSCOPY ??? PRO COLONOSCOPY, DIAGNOSTIC N/A 03/01/2020 COLONOSCOPY, DIAGNOSTIC performed by David Dejesus MD at [facility] ENDOSCOPY ??? PRO ENDOSCOPIC US EXAM, ESOPH N/A 03/31/2022 UPPER EUS- ENDOSCOPIC ULTRASOUND performed by David Dejesus MD at [facility] ENDOSCOPY ??? PRO UP GI ENDOSCOPY, BALL DIL, 30MM N/A 12/24/2022 EGD,WITH DILATION ESOPHAGUS WITH BALLOON,< 30 MM (WRVU 2.67) performed by David Dejesus MDat [facility] ENDOSCOPY ??? PRO UP GI ENDOSCOPY, BALL DIL, 30MM N/A 01/12/2023 EGD,WITH DILATION ESOPHAGUS WITH BALLOON,< 30 MM (WRVU 2.67) [facility]?? PRO UPPER GI ENDOSCOPY, BIOPSY N/A 04/03/2014 UPPER GASTROINTESTINAL ENDOSCOPY,WITH BIOPSY SINGLE OR MULTIPLE performed by David Dejesus MDat [facility] ENDOSCOPY ??? PRO UPPER GI ENDOSCOPY, BIOPSY N/A 03/20/2016 EGD WITH BIOPSY performed by David Dejesus MD at [facility] ENDOSCOPY ??? PRO UPPER GI ENDOSCOPY, BIOPSY N/A 11/22/2018 EGD WITH BIOPSY (WRVU 2.49) performed by David Dejesus MD at [facility] ENDOSCOPY ??? PRO UPPER GI ENDOSCOPY, BIOPSY N/A 03/01/2020 UPPER GASTROINTESTINAL ENDOSCOPY,WITH BIOPSY SINGLE OR MULTIPLE (WRVU 2.49) performed by David Dejesus MD at [facility] ENDOSCOPY ??? PRO UPPER GI ENDOSCOPY, BIOPSY N/A 09/23/2021 EGD WITH BIOPSY (WRVU 2.49) performed by David Dejesus MD at [facility] ENDOSCOPY ??? PRO UPPER GI ENDOSCOPY, BIOPSY N/A 03/31/2022 EGD WITH BIOPSY (WRVU 2.49) performed by David Dejesus MD at [facility] ENDOSCOPY ??? PRO UPPER GI ENDOSCOPY, BIOPSY N/A 07/03/2022 EGD WITH BIOPSY (WRVU 2.49) performed by David Dejesus MD at [facility] ENDOSCOPY ??? PRO UPPER GI ENDOSCOPY, DIAGNOSTIC N/A 04/03/2014 EGD, UPPER GI ENDOSCOPY performed by David Dejesus MD at [facility] ENDOSCOPY ??? PRO UPPER GI ENDOSCOPY, DIAGNOSTIC N/A 03/01/2020 EGD, UPPER GI ENDOSCOPY performed by David Dejesus MD at [facility] ENDOSCOPY ??? PRO UPPER GI ENDOSCOPY, DIAGNOSTIC N/A 09/09/2022 EGD, UPPER GI ENDOSCOPY (WRVU 2.09) performed by Ayo Russ MD at [facility] MAIN OR Social History Tobacco Use [...] with patient and spouse. Plan discussed with PHP WEB DEVELOPER and attending. Anesthesia Screening documented in this encounter Plan of Treatment Upcoming Encounters Date Type Department Care Team (Late st Contact Info) Description 04/26/2024 8:30 AM EST [place] [phone] Gavin Carrillo MD [facility] [place] [address] 06/05/2024 1:20 PM EST Office Visit Cardiology at [address] [phone] Milagros Hernandez MD [facility] [place] [address] Scheduled Procedures Name Priority Associated Diagnoses Date/Ti [...] hr documented in this encounter Care Teams Coat Presser Relationship Specialty Start Date End Date Ana Gillespie APRN [address] [place] [address] PCP - General Family Medicine 02/03/19 documented as of this encounter
--- OUTSIDE RECORDS SUMMARY | 2024-04-19 22:55 | XMS_ITS | Encounter Summary ---
[place] [address] Care Team Providers Care Tire Shop Mechanic Name Role Phone Ana Gillespie VAUGHN Primary Care Provider [phone] Reason for Referral * Diagnostic Test (Routine) - Closed Specialty Diagnoses / Procedures Referred By Contjovani t Referred To Contact Radiology Diagnoses Farrell's esophagus with high grade dysplasia Gastrostomy tube in place Procedures IR G-Tube Check/Change Steven Harding MD [facility] [place] [address] [place] [address] Referral ID Status Reason Start Date Expiration Date V isits Requested Visits Authorized [id number] Closed Specialty Service Requested 03/09/2023 09/06/2024 1 1 Encounter Details Date Type Department Care Team (Late st Contact Info) Description 03/09/2023 [place] [address] Steven Harding MD [facility] [place] [address] Farrell's esophagus with high grade dysplasia; Gastrostomy [...] at which time a balloon retrained 16 Prydeinig EnFit G-tube was placed. Date/Procedure Meds Given/Comments [...] MM (WRVU 2.67) [facility] PRO UP GI ENDOSCOPY, BALL DIL, 30MM N/A 01/12/2023 EGD,WITH DILATION ESOPHAGUS WITH BALLOON,< 30 MM (WRVU 2.67) performed by [facility] ENDOSCOPY PRO UP GI ENDOSCOPY, BALL DIL, 30MM N/A 02/26/2023 EGD,WITH DILATION ESOPHAGUS WITH BALLOON,< 30 MM (WRVU 2.67) [facility] ENDOSCOPY PRO UPPER GI [...] EGD WITH BIOPSY (WRVU 2.49) performed by Davdi Dejesus MD at [facility] ENDOSCOPY [...] 3 lancets (ONE TOUCH DELICA) [facility] each by Other route 3 times daily. by Other route. 1 box= 100 test strips; 3 boxes = 300 test strips. 300 each 3 Blood-Glucose Meter (ONETOUCH ULTRA2) Kit by Other route. 1 = one blood glucose meter kit. 1 each 0 Insulin [place], Disposable, (BD INSULIN PEN NEEDLE UF MINI) 31 x 3/16 Needle 1 Device by [facility].(Non-Drug; Combo Route) route 3 times [...] 04/26/2024 8:30 AM [place] [address] Gavin Carrillo MD [facility] DR INTERVENTIONAL RADIOLOGY [place], [place] [phone] 06/05/2024 1:20 PM EST Office Visit Cardiology at [address] [phone] Milagros Hernandez MD [facility] DR CARDIOLOGY [place], [place] [phone] Scheduled Procedures Name Priority Associated Diagnoses Date/Ti [...] was performed under fluoroscopic guidance. ??A lead business analyst fluoroscopic image was obtained. ??Contrast was injected through the gastrostomy catheter and another fluoroscopic image was obtained. ??Through the catheter, an 0.035 Amplatz wire was advanced. ??The catheter was removed. ??Over the wire, a new 16-Fr nla-jot-ajuuvgp (ESTRELLITA) gastrostomy catheter was advanced. ??The retention [...] gastric lumen. ?? Exchange for new 16-Fr cpr-mcp-wazpmdz (ESTRELLITA) catheter positioned within the stomach. ?? [...] place documented in this encounter Care Teams Tire Shop Mechanic Relationship Specialty Start Date End Date Ana Gillespie APRN [address] [place] [address] PCP - General Family Medicine 02/03/19 documented as of this encounter
--- OUTSIDE RECORDS SUMMARY | 2024-04-19 22:55 | XMS_ITS | Encounter Summary ---
Author Organization [facility] Address [facility] [place] [address] Care Team Providers Care Supervisor Communications And Signals Name Role Phone Ana Gillespie VAUGHN Primary Care Provider [phone] Encounter Details Date Type Department Care Team (Late st Contact Info) Description 01/13/2023 Telephone Gastroenterology at [place] [phone] Parris Maravilla Social History Tobacco Use Types [...] 04/26/2024 8:30 AM EST Appointment Radiology at [place] [phone] Gavin Carrillo MD [facility] [place] [address] 06/05/2024 1:20 PM EST Office Visit Cardiology at [address] [phone] Milagros Hernandez MD [facility] [place] [address] Scheduled Procedures Name Priority Associated Diagnoses Date/Ti me EGD, UPPER GI ENDOSCOPY (WRV U 2.09) Peptic stricture of esophagus documented as of this encounter Visit Diagnoses Not on filedocumented in this encounter Care Teams Supervisor Communications And Signals Relationship Specialty Start Date End Date Ana Gillespie APRN [address] [place] [address] PCP - General Family Medicine 02/03/19 documented as of this encounter
--- OUTSIDE RECORDS SUMMARY | 2024-04-19 22:56 | XMS_ITS | Encounter Summary ---
Author Organization [facility] [place] [address] Care Team Providers Care Boom Tender Name Role Phone Ana Gillespie APRN Primary Care Provider [phone] Encounter Details Date Type Department Care Team (Late st Contact Info) Description 12/24/2022 Orders [place] [phone] David Dejesus MD [facility] [place] [address] Peptic stricture of esophagus Social History Tobacco [...] 04/26/2024 8:30 AM EST App[place] [phone] Gavin Carrillo MD [facility] [place] [address] 06/05/2024 1:20 PM EST Office Visit Cardiology at [address] [phone] Milagros Hernandez MD [facility] [place] [address] Scheduled Orders Name Type Priority Associated Diagnoses [...] esophagus documented in this encounter Care Teams Boom Tender Relationship Specialty Start Date End Date Ana Gillespie APRN [address] [place] [address] PCP - General Family Medicine 02/03/19 documented as of this encounter
--- OUTSIDE RECORDS SUMMARY | 2024-04-19 22:56 | XMS_ITS | Encounter Summary ---
Author Organization [facility] Address [facility] [place] [address] Care Team Providers Care Lay Out Worker Name Role Phone Ana Gillespie APRN Primary Care Provider Encounter Details Date Type Department Care Team (Late st Contact Info) Description 11/23/2022 Notes Only Radiology at [facility] [place] [address] Hang Cooper PA [facility] [place] [address] Social History Tobacco Use Types Packs/Day Years [...] mg by mouth daily. Blood Sugar Diagnostic ([employer] ULTRA TEST) Strip 1 each by Other [...] glucose meter kit. 1 each 0 Insulin [place], Disposable, (BD INSULIN PEN NEEDLE UF MINI) 31 x 3/16 Needle 1 Device by [facility] [...] Hart MD [facility] INTERVENTIONL RAD IR SUTURE RELEASE 09/25/2022 IR Suture Release 09/25/[address] [facility] INTERVENTIONL RAD PERCUTANEOUS GASTROSTOMY N/A 09/11/2022 PERCUTANEOUS GASTROSTOMY performed by Aiden Flores MD at [facility] CATY PRO COLONOSCOPY, BIOPSY N/A 03/20/2016 COLONOSCOPY FLEXIBLE, WITH BX performed by David Dejesus MD at [facility] ENDOSCOPY PRO COLONOSCOPY, DIAGNOSTIC N/A 03/01/2020 COLONOSCOPY, DIAGNOSTIC performed by David Dejesus MD at [facility] ENDOSCOPY PRO ENDOSCOPIC US EXAM, ESOPH N/A 03/31/2022 UPPER EUS- ENDOSCOPIC ULTRASOUND performed by David Dejesus MD at [facility] ENDOSCOPY PRO UPPER GI ENDOSCOPY, BIOPSY N/A 04/03/2014 UPPER GASTROINTESTINAL ENDOSCOPY,WITH BIOPSY SINGLE OR MULTIPLE performed by David Dejesus MDat [facility] ENDOSCOPY PRO UPPER GI ENDOSCOPY, BIOPSY N/A 03/20/2016 EGD WITH BIOPSY performed by David Dejesus MD at [facility] ENDOSCOPY PRO UPPER GI ENDOSCOPY, BIOPSY N/A 11/22/2018 EGD WITH BIOPSY (WRVU 2.49) performed by David Dejesus MD at [facility] ENDOSCOPY PRO UPPER GI ENDOSCOPY, BIOPSY N/A 03/01/2020 UPPER GASTROINTESTINAL ENDOSCOPY,WITH BIOPSY SINGLE OR MULTIPLE (WRVU 2.49) performed by David Dejesus MD at [facility] ENDOSCOPY PRO UPPER GI ENDOSCOPY, BIOPSY N/A 09/23/2021 EGD WITH BIOPSY (WRVU 2.49) performed by David Dejesus MD at [facility] ENDOSCOPY PRO UPPER GI ENDOSCOPY, BIOPSY N/A 03/31/2022 EGD WITH BIOPSY (WRVU 2.49) performed by David Dejesus MD at [facility] ENDOSCOPY PRO UPPER GI ENDOSCOPY, BIOPSY N/A 07/03/2022 EGD WITH BIOPSY (WRVU 2.49) performed by David Dejesus MD at [facility] ENDOSCOPY PRO UPPER GI ENDOSCOPY, DIAGNOSTIC N/A 04/03/2014 EGD, UPPER GI ENDOSCOPY performed by David Dejesus MD at [facility] ENDOSCOPY PRO UPPER GI ENDOSCOPY, DIAGNOSTIC N/A 03/01/2020 EGD, UPPER GI ENDOSCOPY performed by David Dejesus MD at [facility] ENDOSCOPY PRO UPPER GI ENDOSCOPY, DIAGNOSTIC N/A 09/09/2022 EGD, UPPER GI ENDOSCOPY (WRVU 2.09) performed by Ayo Russ MD at [facility] MAIN OR Social history and habits: [...] 04/26/2024 8:30 AM [place] [phone] Gavin Carrillo MD [facility] [place] [address] 06/05/2024 1:20 PM EST Office Visit Cardiology at [address] [phone] Milagros Hernandez MD [facility] [place] [address] Scheduled Procedures Name Priority Associated Diagnoses Date/Ti me EGD, UPPER GI ENDOSCOPY (WRV U 2.09) Peptic stricture of esophagus documented as of this encounter Visit Diagnoses Not on filedocumented in this encounter Care Teams Lay Out Worker Relationship Specialty Start Date End Date Ana Gillespie APRN [address] [place] [address] PCP - General Family Medicine 02/03/19 documented as of this encounter
--- OUTSIDE RECORDS SUMMARY | 2024-04-19 22:56 | XMS_ITS | Encounter Summary ---
Author Organization [facility] [place] [address] Care Team Providers Care Learning And Development Assistant Name Role Phone Ana Gillespie VAUGHN Primary Care Provider [phone] Reason for Visit * Reason Onset Date Comments Medication Refill 11/19/2022 Encounter Details Date Type Department Care Team (Late st Contact Info) Description 11/19/2022 Refill [place] [address] Alyce Vogt RN Social History [...] 04/26/2024 8:30 AM EST [place] [address] Gavin Carrillo MD [facility] INTER[place] [address] 06/05/2024 1:20 PM EST Office Visit Cardiology at [address] [address] Milagros Hernandez MD [facility] [place] [address] Scheduled Procedures Name Priority Associated Diagnoses Date/Ti me EGD, UPPER GI ENDOSCOPY (WRV U 2.09) Peptic stricture of esophagus documented as of this encounter Visit Diagnoses Not on filedocumented in this encounter Care Teams Learning And Development Assistant Relationship Specialty Start Date End Date Ana Gillespie APRN [address] [place] [address] PCP - General Family Medicine 02/03/19 documented as of this encounter
--- OUTSIDE RECORDS SUMMARY | 2024-04-19 22:56 | XMS_ITS | Encounter Summary ---
Author Organization [facility] [place] [address] Care Team Providers Care Bullet Slugs Inspector Name Role Phone Ana Gillespie VAUGHN Primary Care Provider [phone] Encounter Details Date Type Department Care Team (Latest Contact Info) Description 10/16/2022 Unscheduled Encounter Endocrinology at [facility] [place] [phone] Elsie Erickson APRN [facility] [place] [address] Type 2 diabetes mellitus with hyperglycemia, with [...] 04/26/2024 8:30 AM [place] [phone] Gavin Carrillo MD [facility] [place] [address] 06/05/2024 1:20 PM EST Office Visit Cardiology at [address] [address] Milagros Hernandez MD [facility] [place] [place] [address] Scheduled Procedures Name Priority Associated Diagnoses Date/Ti me EGD, UPPER GI ENDOSCOPY (WRV U 2.09) Peptic stricture of esophagus documented as of this encounter Visit Diagnoses Diagnosis Type 2 diabetes mellitus with hyperglycemia, with long-term current use of insulin documented in this encounter Care Teams Bullet Slugs Inspector Relationship Specialty Start Date End Date Ana Gillespie APRN [address] [place] [address] PCP - General Family Medicine 02/03/19 documented as of this encounter
--- OUTSIDE RECORDS SUMMARY | 2024-04-19 22:56 | XMS_ITS | Encounter Summary ---
Author Organization [facility] Address [facility] [address] Care Team Providers Care Clothing Worker Name Role Phone Jose MiguelAna VAUGHN Primary Care Provider [phone] Encounter Details Date Type Department Care Team (Late st Contact Info) Description 10/06/2022 [place]phone [place] [phone] Elsie Erickson APRN [facility] [place] [address] Social History Tobacco Use Types Packs/Day Years [...] not had tube feeds since last week, [facility] having computer system issues so unable to ship supplies. Campos has been using Ensure boluses 2 x daily as he was directed. He has not noted elevation of her blood sugars with this. BGs in 120s-140s. [facility] he has this back. He has no questions and we will check back in the next few days. documented in this encounter Plan of Treatment Upcoming Encounters Date Type Department Care Team (Late st Contact Info) Description 04/26/2024 8:30 AM [place] [phone] Gavin Carrillo MD [facility] INTER[place] [address] 06/05/2024 1:20 PM EST Office Visit Cardiology at [address] [phone] Milagros Hernandez MD [facility] [place] [address] Scheduled Procedures Name Priority Associated Diagnoses Date/Ti me EGD, UPPER GI ENDOSCOPY (WRV U 2.09) Peptic stricture of esophagus documented as of this encounter Visit Diagnoses Not on filedocumented in this encounter Care Teams Clothing Worker Relationship Specialty Start Date End Date Ana Gillespie APRN [address] [place] [address] PCP - General Family Medicine 02/03/19 documented as of this encounter
--- OUTSIDE RECORDS SUMMARY | 2024-04-19 22:56 | XMS_ITS | Encounter Summary ---
Author Organization [facility] [place] [address] Care Team Providers Care Telephone Collector Name Role Phone Ana Gillespie [employer]OVER [employer] TURNER Primary Care Provider [phone] Encounter Details Date Type Department Care Team (Late st Contact Info) Description 12/10/2022 Telephone [place] [phone] Jessica Beckman Social History Tobacco Use Types [...] 04/26/2024 8:30 AM [place] [phone] Gavin Carrillo MD [facility] [place] [address] 06/05/2024 1:20 PM EST Office Visit Cardiology at [address] [address] Milagros Hernandez MD [facility] [place] [address] Scheduled Procedures Name Priority Associated Diagnoses Date/Ti me EGD, UPPER GI ENDOSCOPY (WRV U 2.09) Peptic stricture of esophagus documented as of this encounter Visit Diagnoses Not on filedocumented in this encounter Care Teams Telephone Collector Relationship Specialty Start Date End Date Ana Gillespie APRN [address] [place] [address] PCP - General Family Medicine 02/03/19 documented as of this encounter
--- OUTSIDE RECORDS SUMMARY | 2024-04-19 22:56 | XMS_ITS | Encounter Summary ---
Author Organization [facility] Address [facility] [place] [address] Care Team Providers Care Lithographic Press Operator Apprentice Name Role Phone Ana Gillespie VAUGHN Primary Care Provider [phone] Encounter Details Date Type Department Care Team (Late st Contact Info) Description 12/21/2022 Telephone [place] [address] Jessica Beckman Social History Tobacco [...] 04/26/2024 8:30 AM EST [place] [address] Gavin Carrillo MD [facility] [place] [address] 06/05/2024 1:20 PM EST Office Visit Cardiology at [address] [phone] Milagros Hernandez MD [facility] [place] [address] Scheduled Procedures Name Priority Associated Diagnoses Date/Ti me EGD, UPPER GI ENDOSCOPY (WRV U 2.09) Peptic stricture of esophagus documented as of this encounter Visit Diagnoses Not on filedocumented in this encounter Care Teams Lithographic Press Operator Apprentice Relationship Specialty Start Date End Date Ana Gillespie APRN [address] [place] [address] PCP - General Family Medicine 02/03/19 documented as of this encounter
--- OUTSIDE RECORDS SUMMARY | 2024-04-19 22:56 | XMS_ITS | Encounter Summary ---
Author Organization [facility] [place] [address] Care Team Providers Care Funeral Home Location Manager Name Role Phone Ana Gillespie VAUGHN Primary Care Provider [phone] Encounter Details Date Type Department Care Team (Late st Contact Info) Description 11/13/2022 Telephone [place] [phone] Alyce Vogt RN Social History Tobacco Use [...] 04/26/2024 8:30 AM [place] [phone] Gavin Carrillo MD [facility] [place] [address] 06/05/2024 1:20 PM EST Office Visit Cardiology at [address] [phone] Milagros Hernandez MD [facility] [place] [address] Scheduled Procedures Name Priority Associated Diagnoses Date/Ti me EGD, UPPER GI ENDOSCOPY (WRV U 2.09) Peptic stricture of esophagus documented as of this encounter Visit Diagnoses Not on filedocumented in this encounter Care Teams Funeral Home Location Manager Relationship Specialty Start Date End Date Ana Gillespie APRN [address] [place] [address] PCP - General Family Medicine 02/03/19 documented as of this encounter
--- OUTSIDE RECORDS SUMMARY | 2024-04-19 22:56 | XMS_ITS | Encounter Summary ---
Author Organization [facility] Address [facility] [place] [address] Care Team Providers Care Bilingual Account Manager Name Role Phone Ana Gillespie APRN Primary Care Provider [phone] Encounter Details Date Type Department Care Team (Late st Contact Info) Description 11/23/2022 Notes [place] [phone] Fannie Conde PA [facility] [place] [address] Social History Tobacco Use Types Packs/Day Years [...] 04/26/2024 8:30 AM EST Appoint[place] [phone] Gavin Carrillo MD [facility] [place] [address] 06/05/2024 1:20 PM EST Office Visit Cardiology at [address] [phone] Milagros Hernandez MD [facility] [place] [address] Scheduled Procedures Name Priority Associated Diagnoses Date/Ti me EGD, UPPER GI ENDOSCOPY (WRV U 2.09) Peptic stricture of esophagus documented as of this encounter Visit Diagnoses Diagnosis Neuroleptic-induced parkinsonism Secondary Parkinsonism documented in this encounter Care Teams Bilingual Account Manager Relationship Specialty Start Date End Date Ana Gillespie APRN [address] [place] [address] PCP - General Family Medicine 02/03/19 documented as of this encounter
--- OUTSIDE RECORDS SUMMARY | 2024-04-19 22:56 | XMS_ITS | Encounter Summary ---
Author Organization [facility] Address [facility] [place] [address] Care Team Providers Care Factory Machine Computer Operator Name Role Phone Ana Gillespie VAUGHN Primary Care Provider [phone] Encounter Details Date Type Department Care Team (Latest Contact Info) Description 12/24/2022 9:38 AM EDT - 12/24/2022 1:43 PM EDT Hospital En[place] [phone] David Dejesus MD [facility] [place] [address] Discharge Disposition: Home Social History Tobacco Use [...] 180 tablet 3 10/20/2021 Blood Sugar Diagnostic (ShareightUCH ULTRA TEST) StripIndications:Typ e 2 diabetes mellitus, [...] meter kit. 1 each 0 12/14/2014 Insulin Miller, Disposable, (BD INSULIN PEN NEEDLE UF MINI) 31 x 07/23 NeedleIndications:Di abetes mellitus type 2, uncontrolled 1 Device by [facility]Non-Drug; Combo Route) route 3 times daily as needed. 100 each 11 12/13/2014 ergocalciferoL, vitamin D2, (vitamin D2) 50,000 unit capsule Take 1 capsule by mouth every 14 days. 6 capsule 3 11/20/2022 01/12/2023 sucralfate (Carafate) 1 gram tablet Take 1 [...] glucose meter kit. 1 each 0 Insulin Miller, Disposable, (BD INSULIN PEN NEEDLE UF MINI) 31 x 3/16 Needle 1 Device by Mis.(Non-Drug; Combo Route) route 3 times daily as needed. 100 each 11 PHYSICAL EXAM: Blood pressure 110/57, pulse 62, temperature 36.2 ??C (97.2 ??F), temperature source Tympanic, [id number] %. GEN: Alert, cooperative. Pleasant. In NAD MP I ASA II HEENT: No oropharyngeal lesions. Neck supple. No masses. Thyroid symmetric LUNGS: CTAB CARD: RRR without m/g/r RECENT LABS Recent Results (from the past 24 hour(s)) POCT Glucose Result Value Ref Range POC Glucose 123 65 - 199 mg/dL ASSESSMENT AND PLAN Jennifer Irvnig is a 62 y.o. y/o who presents for endoscopic evaluation. Risks extensively discussed including bleeding, infection, reaction to anesthesia, perforation, and/or other unforseen complication. Consent signed and patient well informed of the risks of the procedure. documented in this encounter Plan of Treatment Upcoming Encounters Date Type Department Care Team (Late st Contact Info) Description 04/26/2024 8:30 AM [place] [address] Gavin Carrillo MD [facility] [place] [address] 06/05/2024 1:20 PM EST Office Visit Cardiology at [address] [phone] Milagros Hernandez MD [facility] [place] [address] Scheduled Procedures Name Priority Associated Diagnoses Date/Ti me EGD, UPPER GI ENDOSCOPY (WRV U 2.09) Peptic stricture of esophagus documented as of this encounter Procedures Procedure Name Priority Date/Time Associated Diagnosis Comments Up Gi Endoscopy, Ball Dil, 30Mm ([address]684) 12/24/2022 11:56 AM EDT Farrell's esophagus without dysplasia UPPER GI ENDOSCOPY Routine 12/24/2022 11 :46 AM EDT POCT GLUCOSE Routine 12/24/2022 11:02 AM EDT documented in this encounter Results * UPPER GI ENDOSCOPY (12/24/2022 11:46 AM EDT) UPPER GI ENDOSCOPY [facility] Endoscopy Procedure Date: 12/24/2022 11:46 AM ? Patient Name: Jennifer Irving ? Date of : 1960 ? Age: 62 ? Order #: [id number] ? Instrument Name: [id number] ? Procedure: ? Upper GI endoscopy Indications: [...] GENERAL SURGICAL ORD ERABLES Performing Organization Address City/[facility] Co de Phone Number PROVATION * POCT Glucose (12/24/2022 11:02 AM EDT) Glucose, POC 123 65 - 199 mg/dL [facility] Comment: Supplemental ranges: <140 mg/dL before meals <180 mg/dL all other times of the day Blood 12/24/2022 11:0 2 AM EDT 12/24/2022 11:02 AM EDT David Dejesus MD POINT OF CARE TEST ORDERABLES Performing Organization Address [facility] Co de Phone Number [facility] [place] [address] documented in this encounter Visit Diagnoses Not [...] CRNA) documented in this encounter Care Teams Factory Machine Computer Operator Relationship Specialty Start Date End Date Ana Gillespie APRN [address] [place] [address] PCP - General Family Medicine 02/03/19 documented as of this encounter
--- OUTSIDE RECORDS SUMMARY | 2024-04-19 22:56 | XMS_ITS | Encounter Summary ---
Author Organization [facility] [place] [address] Care Team Providers Care Fishing Worker Name Role Phone Ana Gillespie VAUGHN Primary Care Provider [phone] Encounter Details Date Type Department Care Team (Late st Contact Info) Description 12/10/2022 Telephone Gastroenterology at [facility] [place] [address] Jessica Beckman Social History Tobacco Use Types [...] - 12/10/2022 10:00 AM EDT Jennifer Irving [id number] Diagnosis/Indication: Dysphagia, Follow-up of Farrell's esophagus Please [...] a/an Upper Endoscopy before? Yes: Date 09/10/22 [facility] If yes, did you have any [...] your procedure. Who will likely be your dinkey driver for the procedure? *Please Verify the [...] 04/26/2024 8:30 AM [place] [address] Gavin Carrillo MD [facility] [place] [address] 06/05/2024 1:20 PM EST Office Visit Cardiology at [address] [phone] Milagros Hernandez MD [facility] [place] [place] [address] Scheduled Procedures Name Priority Associated Diagnoses Date/Ti me EGD, UPPER GI ENDOSCOPY (WRV U 2.09) Peptic stricture of esophagus documented as of this encounter Visit Diagnoses Not on filedocumented in this encounter Care Teams Fishing Worker Relationship Specialty Start Date End Date Ana Gillespie APRN [address] [place] [address] PCP - General Family Medicine 02/03/19 documented as of this encounter
--- OUTSIDE RECORDS SUMMARY | 2024-04-19 22:56 | XMS_ITS | Encounter Summary ---
Author Organization [facility] Address [facility] Marly petersen [place] [id number] Care Team Providers Care Wool Carder Name Role Phone Ana Gillespie APRN Primary Care Provider [phone] Encounter Details Date Type Department Care Team [...] 04/26/2024 8:30 AM EST Appointment Radiology at [place] [phone] Gavin Carrillo MD [facility] [place] [address] 06/05/2024 1:20 PM EST Office Visit Cardiology at [address] [phone] Milagros Hernandez MD [facility] [place] [address] Scheduled Procedures Name Priority Associated Diagnoses Date/Ti me EGD, UPPER GI ENDOSCOPY (WRV U 2.09) Peptic stricture of esophagus documented as of this encounter Visit Diagnoses Not on filedocumented in this encounter Care Teams Wool Carder Relationship Specialty Start Date End Date Ana Gillespie APRN [address] [place] [address] PCP - General Family Medicine 02/03/19 documented as of this encounter
--- OUTSIDE RECORDS SUMMARY | 2024-04-19 22:56 | XMS_ITS | Encounter Summary ---
Author Organization [facility] [place] [address] Care Team Providers Care Gutter Hanger Name Role Phone Ana Gillespie VAUGHN Primary Care Provider [phone] Reason for Visit * Reason Onset Date Comments Medication Refill 11/13/2022 Encounter Details Date Type Department Care Team (Late st Contact Info) Description 11/13/2022 [place] [address] Alyce Vogt RN Social History [...] 04/26/2024 8:30 AM [place] [address] Gavin Carrillo MD [facility] [place] [address] 06/05/2024 1:20 PM EST Office Visit Cardiology at [address] [phone] Milagros Hernandez MD [facility] [place] [address] Scheduled Procedures Name Priority Associated Diagnoses Date/Ti me EGD, UPPER GI ENDOSCOPY (WRV U 2.09) Peptic stricture of esophagus documented as of this encounter Visit Diagnoses Not on filedocumented in this encounter Care Teams Gutter Hanger Relationship Specialty Start Date End Date Ana Gillespie APRN [address] [place] [address] PCP - General Family Medicine 02/03/19 documented as of this encounter
--- OUTSIDE RECORDS SUMMARY | 2024-04-19 22:56 | XMS_ITS | Encounter Summary ---
Author Organization [facility] Address [facility] [place] [address] Care Team Providers Care Vending Supervisor Name Role Phone Ana Gillespie VAUGHN Primary Care Provider [phone] Encounter Details Date Type Department Care Team (Late st Contact Info) Description 12/24/2022 12:00 PM EDT - 12/24/2022 12:30 PM EDT [place] [phone] David Dejesus MD [facility] [place] [address] EGD,WITH DILATION ESOPHAGUS WITH BALLOON,< 30 MM [...] 180 tablet 3 10/20/2021 Blood Sugar Diagnostic (Mirac[employer] Medical SystemsUCH ULTRA TEST) StripIndications:Typ e 2 diabetes mellitus, [...] meter kit. 1 each 0 12/14/2014 Insulin Prosperity, Disposable, (BD INSULIN PEN NEEDLE UF MINI) 31 x 07/23 NeedleIndications:Di abetes mellitus type 2, uncontrolled 1 Device by [facility].(Non-Drug; Combo Route) route 3 times daily as [...] glucose meter kit. 1 each 0 Insulin Prosperity, Disposable, (BD INSULIN PEN NEEDLE UF MINI) 31 x 3/16 Needle 1 Device by [facility].(Non-Drug; Combo Route) route 3 times daily as needed. 100 each 11 PHYSICAL EXAM: Blood pressure 110/57, pulse 62, temperature 36.2 ??C (97.2 ??F), temperature source Tympanic, TfO989 %. GEN: Alert, cooperative. Pleasant. In NAD [...] 04/26/2024 8:30 AM [place] [address] Gavin Carrillo MD [facility] DR INTERVENTION[place] [address] 06/05/2024 1:20 PM EST Office Visit Cardiology at [address] [phone] Milagros Hernandez MD [facility] [place] [address] Scheduled Procedures Name Priority Associated Diagnoses Date/Ti me EGD, UPPER GI ENDOSCOPY (WRV U 2.09) Peptic stricture of esophagus documented as of this encounter Procedures Procedure Name Priority Date/Time Associated Diagnosis Comments Up Gi Endoscopy, Ball Dil, 30Mm ([id number]) 12/24/2022 11:56 AM EDT Farrell's esophagus without dysplasia UPPER GI ENDOSCOPY Routine 12/24/2022 11 :46 AM EDT POCT GLUCOSE Routine 12/24/2022 11:02 AM EDT documented in this encounter Results * UPPER GI ENDOSCOPY (12/24/2022 11:46 AM EDT) UPPER GI ENDOSCOPY [facility] Endoscopy Procedure Date: 12/24/2022 11:46 AM ? Patient Name: Jennifer Irving ? Date of : 1960 ? Age: 62 ? Order #: [id number] ? Instrument Name: [id number] ? Procedure: ? Upper GI endoscopy Indications: [...] GENERAL SURGICAL ORD ERABLES Performing Organization Address City/[facility]/ZIP Co de Phone Number PROVATION * POCT Glucose (12/24/2022 11:02 AM EDT) Glucose, POC 123 65 - 199 mg/dL [facility] Comment: Supplemental ranges: <140 mg/dL before meals <180 mg/dL all other times of the day Blood 12/24/2022 11:0 2 AM EDT 12/24/2022 11:02 AM EDT David Dejesus MD POINT OF CARE TEST ORDERABLES Performing Organization Address City/[facility] Co de Phone Number [facility] [place] [address] documented in this encounter Visit Diagnoses Diagnosis [...] CRNA) documented in this encounter Care Teams Vending Supervisor Relationship Specialty Start Date End Date Ana Gillespie APRN [address] [place] [address] PCP - General Family Medicine 02/03/19 documented as of this encounter
--- OUTSIDE RECORDS SUMMARY | 2024-04-19 22:56 | XMS_ITS | Encounter Summary ---
Author Organization [facility] Address [facility] [place] [address] Care Team Providers Care Zipper Lining Folder Name Role Phone Ana Gillespie VAUGHN Primary Care Provider [phone] Reason for Visit * Reason Onset Date [...] Contact Info) Description 12/08/2022 Telephone [place] [phone] Elsie Erickson APRN [facility] [place] [address] Medication Refill (Jennifer is out of her [...] 04/26/2024 8:30 AM EST [place] [phone] Gavin Carrillo MD [facility] [place] [address] 06/05/2024 1:20 PM EST Office Visit Cardiology at [address] [phone] Milagros Hernandez MD [facility] [place] [address] Scheduled Procedures Name Priority Associated Diagnoses Date/Ti me EGD, UPPER GI ENDOSCOPY (WRV U 2.09) Peptic stricture of esophagus documented as of this encounter Visit Diagnoses Not on filedocumented in this encounter Care Teams Zipper Lining Folder Relationship Specialty Start Date End Date Ana Gillespie APRN [address] [place] [address] PCP - General Family Medicine 02/03/19 documented as of this encounter
--- OUTSIDE RECORDS SUMMARY | 2024-04-19 22:56 | XMS_ITS | Encounter Summary ---
Author Organization [facility] Address [facility] [place] [address] Care Team Providers Care Corporate Security Manager Name Role Phone Ana Gillespie APRN Primary Care Provider [phone] Encounter Details Date Type Department Care Team (Late st Contact Info) Description 12/24/2022 11:54 AM EDT Anesthesia [place] [phone] Tim Wagner MD [facility] [place] [address] Jeanette Hutchins CRNA Anesthesia Record Procedure Summary Procedure Name Responsible [...] 218.4 mg Dexmedetomidine 8 mcg Benzocaine 20% [place] 1 spray PHENYLephrine 720 mcg ePHEDrine 40 mg lactated ringers infusion 600 mL * Agents Name O2 Air N2O O2 Auxiliary Flowmeter 1 * Blood No blood administrations on file. Lines, Drains, and Airways Type Details Placement Removal (RETIRED) Peripheral IV Line - Single Lumen 12/24/22; 1108; dorsal arch vein (top of hand), left; csov-aak-suooex catheter system; 22 gauge; Antoina Proctor RN; 12/24/22; 1325 12/24/22 1108 by [...] Procedure Summary Date: 12/24/22 Room / Location: [facility] ENDO 3 / [facility] ENDOSCOPY Anesthesia Start: 1154 Anesthesia Stop: 1238 Procedure: EGD,WITH DILATION ESOPHAGUS WITH BALLOON,< 30 MM (WRVU 2.67) (Trunk) Diagnosis: Covington's esophagus without dysplasia (covington's; stricture) Surgeons: David Dejesus MD Responsible Provider: Tim Wagner MD Anesthesia Type: general ASA Status: 2 All Anesthesia Providers: Anesthesiologist: Tim Wagner MD SUPERVISOR FINAL: Jeanette Hutchins CRNA Vitals Value Taken Time BP 83/43 12/24/22 1255 Temp Pulse Resp SpO2 95 % 12/24/22 1259 Pain Level Vitals shown include unvalidated device data. Patient Location: PACU/SDP Level of [...] y.o. female. Procedure(s): EGD, UPPER GI ENDOSCOPY (VU 2.09) Patient Active Problem List Diagnosis Date Noted Neuroleptic-induced parkinsonism 02/24/2022 Bipolar disorder 02/12/2022 BMI 37.0-37.9, adult 12/13/2014 T2DM (type 2 diabetes mellitus) 12/12/2014 GERD (gastroesophageal reflux disease) 03/15/2013 Covington's esophagus 03/15/2013 Past Medical History: Diagnosis Date Bipolar disorder 02/12/2022 Past Surgical History: Procedure Laterality Date IR G-TUBE CHECK/CHANGE 11/27/2022 IR G-Tube Check/Change 11/27/2022 Hang Cooper PA [facility] INTERVENTIONL RAD IR G-TUBE PLACEMENT 09/11/2022 IR G-Tube Placement 09/11/2022 Moustapha Hart MD [facility] INTERVENTIONL RAD IR SUTURE RELEASE 09/25/2022 IR Suture Release 09/25/2022 Yoselin Ghosh PA [facility] INTERVENTIONL RAD PERCUTANEOUS GASTROSTOMY N/A 09/11/2022 PERCUTANEOUS GASTROSTOMY performed by Aiden Flores MD at [facility] CATY PRO COLONOSCOPY, BIOPSY N/A 03/20/2016 COLONOSCOPY FLEXIBLE, WITH BX performed by David Dejesus MD at [facility] ENDOSCOPY PRO COLONOSCOPY, DIAGNOSTIC N/A 03/01/2020 COLONOSCOPY, DIAGNOSTIC performed by David Dejesus MD at [facility] ENDOSCOPY PRO ENDOSCOPIC US EXAM, ESOPH N/A 03/31/2022 UPPER EUS- ENDOSCOPIC ULTRASOUND performed by David Dejesus MD at [facility] ENDOSCOPY PRO UPPER GI ENDOSCOPY, BIOPSY N/A 04/03/2014 UPPER GASTROINTESTINAL ENDOSCOPY,WITH BIOPSY SINGLE OR MULTIPLE performed by David Dejesus MDat [facility] ENDOSCOPY PRO UPPER GI ENDOSCOPY, BIOPSY N/A 03/20/2016 EGD WITH BIOPSY performed by David Dejesus MD at [facility] ENDOSCOPY PRO UPPER GI ENDOSCOPY, BIOPSY N/A 11/22/2018 EGD WITH BIOPSY (WRVU 2.49) performed by David Dejesus MD at [facility] ENDOSCOPY PRO UPPER GI ENDOSCOPY, BIOPSY N/A 03/01/2020 UPPER GASTROINTESTINAL ENDOSCOPY,WITH BIOPSY SINGLE OR MULTIPLE (WRVU 2.49) performed by David Dejesus MD at [facility] ENDOSCOPY PRO UPPER GI ENDOSCOPY, BIOPSY N/A 09/23/2021 EGD WITH BIOPSY (WRVU 2.49) performed by David Dejesus MD at [facility] ENDOSCOPY PRO UPPER GI ENDOSCOPY, BIOPSY N/A 03/31/2022 EGD WITH BIOPSY (WRVU 2.49) performed by David Dejesus MD at [facility] ENDOSCOPY PRO UPPER GI ENDOSCOPY, BIOPSY N/A 07/03/2022 EGD WITH BIOPSY (WRVU 2.49) performed by David Dejesus MD at [facility] ENDOSCOPY PRO UPPER GI ENDOSCOPY, DIAGNOSTIC N/A 04/03/2014 EGD, UPPER GI ENDOSCOPY performed by David Dejesus MD at [facility] ENDOSCOPY PRO UPPER GI ENDOSCOPY, DIAGNOSTIC N/A 03/01/2020 EGD, UPPER GI ENDOSCOPY performed by David Dejesus MD at [facility] ENDOSCOPY PRO UPPER GI ENDOSCOPY, DIAGNOSTIC N/A 09/09/2022 EGD, UPPER GI ENDOSCOPY (WRVU 2.09) performed by Ayo Russ MD at [facility] MAIN OR Social History Tobacco Use [...] discussed with patient. Plan discussed with SUPERVISOR FINAL and attending. Anesthesia Screening documented in this encounter Plan of Treatment Upcoming Encounters Date Type Department Care Team (Late st Contact Info) Description 04/26/2024 8:30 AM [place] [phone] Gavin Carrillo MD [facility] [place] [address] 06/05/2024 1:20 PM EST Office Visit Cardiology at [address] [phone] Milagros Hernandez MD [facility] [place] [address] Scheduled Procedures Name Priority Associated Diagnoses Date/Ti [...] mg documented in this encounter Care Teams Corporate Security Manager Relationship Specialty Start Date End Date Ana Gillespie APRN [address] [place] [address] PCP - General Family Medicine 02/03/19 documented as of this encounter
--- OUTSIDE RECORDS SUMMARY | 2024-04-19 22:56 | XMS_ITS | Encounter Summary ---
Author Organization [facility] [place] [address] Care Team Providers Care In Store Demonstrator Name Role Phone Ana Gillespie HL7 DEVELOPER Primary Care Provider [phone] Encounter Details Date Type Department Care Team (Late st Contact Info) Description 12/25/2022 Telephone [place] [address] Parris Maravilla Social History Tobacco [...] 04/26/2024 8:30 AM [place] [phone] Gavin Carrillo MD [facility] [address] [place] [address] 06/05/2024 1:20 PM EST Office Visit Cardiology at [address] [phone] Milagros Hernandez MD [facility] [place] [address] Scheduled Procedures Name Priority Associated Diagnoses Date/Ti me EGD, UPPER GI ENDOSCOPY (WRV U 2.09) Peptic stricture of esophagus documented as of this encounter Visit Diagnoses Not on filedocumented in this encounter Care Teams In Store Demonstrator Relationship Specialty Start Date End Date Ana Gillespie APRN [address] [place] [address] PCP - General Family Medicine 02/03/19 documented as of this encounter
--- OUTSIDE RECORDS SUMMARY | 2024-04-19 22:56 | XMS_ITS | Encounter Summary ---
Author Organization [facility] [place] [address] Care Team Providers Care Membership Counselor Name Role Phone Ana Gillespie VAUGHN Primary Care Provider [phone] Encounter Details Date Type Department Care Team (Late st Contact Info) Description 10/29/2022 Telephone [place] [phone] Elsie Erickson APRN [facility] [place] [address] Social History Tobacco Use Types Packs/Day Years [...] 04/26/2024 8:30 AM [place] [phone] Gavin Carrillo MD [facility] [place] [address] 06/05/2024 1:20 PM EST Office Visit Cardiology at [address] [phone] Milagros Hernandez MD [facility] [place] [address] Scheduled Procedures Name Priority Associated Diagnoses Date/Ti me EGD, UPPER GI ENDOSCOPY (WRV U 2.09) Peptic stricture of esophagus documented as of this encounter Visit Diagnoses Not on filedocumented in this encounter Care Teams Membership Counselor Relationship Specialty Start Date End Date Ana Gillespie APRN [address] [place] [address] PCP - General Family Medicine 02/03/19 documented as of this encounter
--- OUTSIDE RECORDS SUMMARY | 2024-04-19 22:56 | XMS_ITS | Encounter Summary ---
Author Organization [facility] Address [facility] [place] [address] Care Team Providers Care Manager Business Operations Name Role Phone Ana Gillespie APRN Primary Care Provider [phone] Reason for Visit * Reason Onset Date Comments Medication Refill 10/22/2022 Encounter Details Date Type Department Care Team (Late st Contact Info) Description 10/22/2022 Ref[place] [phone] David Dejesus MD [facility] [place] [address] Social History Tobacco Use Types Packs/Day Years [...] 04/26/2024 8:30 AM [place] [phone] Gavin Carrillo MD [facility] INTER[place]ION[place] [address] 06/05/2024 1:20 PM EST Office Visit Cardiology at [address] [phone] Milagros Hernandez MD [facility] [place] [address] Scheduled Procedures Name Priority Associated Diagnoses Date/Ti me EGD, UPPER GI ENDOSCOPY (WRV U 2.09) Peptic stricture of esophagus documented as of this encounter Visit Diagnoses Not on filedocumented in this encounter Care Teams Manager Business Operations Relationship Specialty Start Date End Date Ana Gillespie APRN [address] [place] [address] PCP - General Family Medicine 02/03/19 documented as of this encounter
--- OUTSIDE RECORDS SUMMARY | 2024-04-19 22:56 | XMS_ITS | Encounter Summary ---
Author [place] [address] Care Team Providers Care Tie Knitter Helper Name Role Phone Ana Gillespie APRN Primary Care Provider [phone] Reason for Referral * Consultation (Routine) - Closed Specialty Diagnoses / Procedures Referred By Esperanza t Referred To Contact Diagnoses Gastrojejunostomy tube status Ana Gillespie APRN [address] [place] [address] [facility] Pedi Nutrition [address] [place] [phone] Referral ID Status Reason Start Date Expiration Date V isits Requested Visits Authorized [id number] Closed Continuity of Care PCP Updated and/or Approved 11/17/2022 11/17/2023 12 12 Encounter Details Date Type Department Care Team (Latest Contact Info) Description 11/17/2022 Transcribe Orders eDH Incoming Referrals [phone] Ana Gillespie APRN [address] [place], [place] [phone] Gastrojejunostomy tube status Social History Tobacco Use [...] 04/26/2024 8:30 AM [place] [phone] Gavin Carrillo MD [facility] [place] [address] 06/05/2024 1:20 PM EST Office Visit Cardiology at [address] [phone] Milagros Hernandez MD [facility] [place] [address] Scheduled Procedures Name Priority Associated Diagnoses Date/Ti me EGD, UPPER GI ENDOSCOPY (WRV U 2.09) Peptic stricture of esophagus Scheduled Referrals Name Type Priority Associated Diagnoses Orde r Schedule Referral to Nutrition Services Outpatient Referral Routine Gastrojejunostomy tube status Ordered: 11/17/2022 documented as of this encounter Visit Diagnoses Diagnosis Gastrojejunostomy tube status Intestinal bypass or anastomosis status documented in this encounter Care Teams Tie Knitter Helper Relationship Specialty Start Date End Date Ana Gillespie APRN [address] [place] [address] PCP - General Family Medicine 02/03/19 documented as of this encounter
--- OUTSIDE RECORDS SUMMARY | 2024-04-19 22:56 | XMS_ITS | Encounter Summary ---
[place] [address] Care Team Providers Care Lead Scientist Name Role Phone Ana Gillespie APRN Primary Care Provider [phone] Reason for Referral * Consultation (Urgent) - Closed Specialty Diagnoses / Procedures Referred By Contac t Referred To Contact Cardiology Diagnoses Cardiac LV ejection fraction 30-35% Ana Gillespie APRN [address] [place] [address] [facility] [address] [place] [phone] Referral ID Status Reason Start Date Expiration Date V isits Requested Visits Authorized [id number] Closed Consult, Test & Treat PCP Updated and/or Approved 11/23/2022 11/23/2023 12 12 Encounter Details Date Type Department Care Team (Latest Contact Info) Description 11/23/2022 Transcribe Orders eDH Incoming Referrals [phone] Ana Gillespie APRN [address] [place] [address] Cardiac LV ejection fraction 30-35% Social History [...] 04/26/2024 8:30 AM [place] [phone] Gavin Carrillo MD [facility] [place] [address] 06/05/2024 1:20 PM EST Office Visit Cardiology at [address] [phone] Milagros Hernandez MD [facility] [place] [address] Scheduled Procedures Name Priority Associated Diagnoses Date/Ti [...] system documented in this encounter Care Teams Lead Scientist Relationship Specialty Start Date End Date Ana Gillespie APRN [address] [place] [address] PCP - General Family Medicine 02/03/19 documented as of this encounter
--- OUTSIDE RECORDS SUMMARY | 2024-04-19 22:56 | XMS_ITS | Encounter Summary ---
Author Organization [facility] [place] [address] Care Team Providers Care Urology Physician Name Role Phone Ana Gillespie APRN Primary Care Provider [phone] Encounter Details Date Type Department Care Team (Late st Contact Info) Description 12/08/2022 Telephone [place] [phone] Alyce Vogt RN Social History Tobacco Use [...] 12/08/2022 1:08 PM EDT Copied from CRM #[id number]. Topic: Specialty Dept CRMs - Generic Call [...] 04/26/2024 8:30 AM EST Appointment Radiology at [place] [phone] Gavin Carrillo MD [facility] [place] [address] 06/05/2024 1:20 PM EST Office Visit Cardiology at [address] [phone] Milagros Hernandez MD [facility] [place] [address] Scheduled Procedures Name Priority Associated Diagnoses Date/Ti me EGD, UPPER GI ENDOSCOPY (WRV U 2.09) Peptic stricture of esophagus documented as of this encounter Visit Diagnoses Not on filedocumented in this encounter Care Teams Urology Physician Relationship Specialty Start Date End Date Ana Gillespie APRN [address] [place] [address] PCP - General Family Medicine 02/03/19 documented as of this encounter
--- OUTSIDE RECORDS SUMMARY | 2024-04-19 22:56 | XMS_ITS | Encounter Summary ---
Author Organization [facility] [place] [address] Care Team Providers Care Trade Mark Examiner Name Role Phone Ana Gillespie VAUGHN Primary Care Provider [phone] Reason for Visit * Reason Onset Date Comments Diabetes 09/29/2022 Encounter Details Date Type Department Care Team (Late st Contact Info) Description 09/29/2022 [place] [phone] Elsie Erickson APRN [facility] [place] [address] Diabetes Social History Tobacco Use Types Packs/Day [...] 04/26/2024 8:30 AM [place] [phone] Gavin Carrillo MD [facility] [place] [address] 06/05/2024 1:20 PM EST Office Visit Cardiology at [address] [phone] Milagros Hernandez MD [facility] [place] [address] Scheduled Procedures Name Priority Associated Diagnoses Date/Ti me EGD, UPPER GI ENDOSCOPY (WRV U 2.09) Peptic stricture of esophagus documented as of this encounter Visit Diagnoses Not on filedocumented in this encounter Care Teams Trade Mark Examiner Relationship Specialty Start Date End Date Ana Gillespie APRN [address] [place] [address] PCP - General Family Medicine 02/03/19 documented as of this encounter
--- OUTSIDE RECORDS SUMMARY | 2024-04-19 22:56 | XMS_ITS | Encounter Summary ---
[place] [address] Care Team Providers Care Fire Extinguisher Sprinkler Inspector Name Role Phone Ana Gillespie VAUGHN Primary Care Provider [phone] Reason for Referral * Diagnostic Test (Routine) - Closed Specialty Diagnoses / Procedures Referred By Esperanza rodríguez Referred To Contact Radiology Diagnoses Gastrostomy tube in place Procedures IR Suture Release Moustapha Hart MD [facility] [place] [address] [place] [address] Referral ID Status Reason Start Date Expiration Date V isits Requested Visits Authorized [id number] Closed Specialty Service Requested 09/11/2022 03/14/2024 1 1 Reason for Visit * Auth/Cert (Routine) Specialty Diagnoses / Procedures Referred By Esperanza rodríguez Referred To Contact Diagnoses Shock CARDIOGENIC PULMONARY EDEMA Procedures ER Carlos Melton MD [facility] [place] [address] [facility] Referral ID Status Reason Start Date Expiration Date Visits Re quested Visits Authorized [id number] 1 1 Encounter Details Date Type Department Care Team (Latest Contact Info) Description 09/25/2022 9:00 AM EDT - 09/25/2022 11:59 PM EDT Hospital [place] [address] Discharge [...] 180 tablet 3 10/20/2021 Blood Sugar Diagnostic (SynGenTOUCH ULTRA TEST) StripIndications:Typ e 2 diabetes mellitus, [...] meter kit. 1 each 0 12/14/2014 Insulin [place], Disposable, (BD INSULIN PEN NEEDLE UF MINI) [...] to AVS in admission encounter and below. [facility] INTERVENTIONAL RADIOLOGY NURSES NOTE FOR GASTROPEXY [...] is during regular office hours, please call [phone]. If it is after regular office hours, or on weekends or holidays, please call [phone] and ask to speak to the Clearing Distribution Clerk medical office professional instructor for Interventional Radiology. Revised 02/23/19 documented in this encounter Plan of Treatment Upcoming Encounters Date Type Department Care Team (Late st Contact Info) Description 04/26/2024 8:30 AM EST [place] [address] Gavin Carrillo MD [facility] DR INTERVENTIONAL RADIOLOGY [place], [place] [address] 06/05/2024 1:20 PM EST Office Visit Cardiology at [address] [phone] Milagros Hernandez MD [facility] [place] [address] Scheduled Procedures Name Priority Associated Diagnoses Date/Ti me EGD, UPPER GI ENDOSCOPY (WRV U 2.09) Peptic stricture of esophagus documented as of this encounter Procedures Procedure Name Priority Date/Time Associated Diagnosis Comments IR SUTURE RELEASE Routine 09/25/2022 9:5 6 AM EDT Gastrostomy tube in place documented in this encounter Results * IR Suture Release (09/25/2022 9:56 AM EDT) Narrative [facility] - 09/25/2022 10:16 AM EDT This exam is auto-finalizing. No interpretation was done. Moustapha Hart MD IMG IR ORDERABLES Performing Organization Address City/State/[facility] Co de Phone Number [place], [place] documented in this encounter Visit Diagnoses Diagnosis Gastrostomy tube in place documented in this encounter Care Teams Fire Extinguisher Sprinkler Inspector Relationship Specialty Start Date End Date Ana Gillespie APRN [address] [place] [address] PCP - General Family Medicine 02/03/19 documented as of this encounter
--- OUTSIDE RECORDS SUMMARY | 2024-04-19 22:56 | XMS_ITS | Encounter Summary ---
Author Organization [facility] [place] [address] Care Team Providers Care Public Affairs Director Name Role Phone Ana Gillespie VAUGHN Primary Care Provider [phone] Encounter Details Date Type Department Care Team (Late st Contact Info) Description 12/21/2022 Telephone [place] [phone] Jessica Beckman Social History Tobacco Use Types [...] 12/24 at 11:30am per Dr Dejesus-had to [facility] documented in this encounter Plan of Treatment Upcoming Encounters Date Type Department Care Team (Late st Contact Info) Description 04/26/2024 8:30 AM EST [place] [phone] Gavin Carrillo MD [facility] [place] [address] 06/05/2024 1:20 PM EST Office Visit Cardiology at [address] [phone] Milagros Hernandez MD [facility] [place] [address] Scheduled Procedures Name Priority Associated Diagnoses Date/Ti me EGD, UPPER GI ENDOSCOPY (WRV U 2.09) Peptic stricture of esophagus documented as of this encounter Visit Diagnoses Not on filedocumented in this encounter Care Teams Public Affairs Director Relationship Specialty Start Date End Date Ana Gillespie APRN [address] [place] [address] PCP - General Family Medicine 02/03/19 documented as of this encounter
--- OUTSIDE RECORDS SUMMARY | 2024-04-19 22:56 | XMS_ITS | Encounter Summary ---
Author Organization [facility] [place] [address] Care Team Providers Care Skilled Laborer Name Role Phone Jose MiguelAna VAUGHN Primary Care Provider [phone] Reason for Visit * Reason Onset Date Comments Diabetes 09/30/2022 Encounter Details Date Type Department Care Team (Late st Contact Info) Description 09/30/2022 Tele[place] [address] Elsie Erickson CARDIAC NURSE PRACTITIONER [facility] [place] [address] Diabetes Social History Tobacco Use Types Packs/Day [...] 04/26/2024 8:30 AM [place] [address] Gavin Carrillo MD [facility] [place] [address] 06/05/2024 1:20 PM EST Office Visit Cardiology at [address] [phone] Milagros Hernandez MD [facility] [place] [place] [address] Scheduled Procedures Name Priority Associated Diagnoses Date/Ti me EGD, UPPER GI ENDOSCOPY (WRV U 2.09) Peptic stricture of esophagus documented as of this encounter Visit Diagnoses Not on filedocumented in this encounter Care Teams Skilled Laborer Relationship Specialty Start Date End Date Ana Gillespie APRN [address] [place] [address] PCP - General Family Medicine 02/03/19 documented as of this encounter
--- OUTSIDE RECORDS SUMMARY | 2024-04-19 22:56 | XMS_ITS | Encounter Summary ---
Author Organization [facility] [place] [address] Care Team Providers Care Test Engineering Manager Name Role Phone Ana Gillespie VAUGHN Primary Care Provider [phone] Reason for Visit * Auth/Cert (Routine) Specialty Diagnoses / Procedures Referred By Esperanza rodríguez Referred To Contact Diagnoses Shock CARDIOGENIC PULMONARY EDEMA Procedures ER Carlos Melton MD [facility] [place] [address] [facility] Referral ID Status Reason Start Date Expiration Date Visits Re quested Visits Authorized [id number] 1 1 Encounter Details Date Type Department Care Team (Late st Contact Info) Description 09/11/2022 4:10 PM EDT [place] [phone] Gt Urena MD [facility] [address] Anesthesia Record Procedure Summary Procedure Name Responsible [...] expected post-operative course (including disposition.) Gt Lisa MANAGER CONSUMER INSIGHTS 1723 Recovery or ICU Handoff Sayra ent [...] side of arm), right; pressure injectable catheter ([id number]); 5 Fr; 0 cm; 33 cm; 33 [...] Procedure Summary Date: 09/11/22 Room / Location: [facility] INTERVENTIONAL RADIOLOGY 2 / [facility] Anesthesia Start: 1610 Anesthesia Stop: 1723 Procedure: PERCUTANEOUS GASTROSTOMY Diagnosis: (DYSPHAGIA) Surgeons: Aiden Flores MD Responsible Provider: Gt Urena MD Anesthesia Type: general ASA Status: 3 All Anesthesia Providers: Anesthesiologist: Gt Urena MD MANAGER CONSUMER INSIGHTS: Jennifer Salomon CRNA; Gt Lisa CRNA Vitals Value Taken Time BP 117/55 09/11/22 1730 Temp 37 ??C (98.6 ??F) 09/11/22 1725 Pulse 73 09/11/22 1741 Resp 14 09/11/22 1741 SpO2 93 % 09/11/22 1741 Pain Level 0 09/11/22 1730 Vitals shown include unvalidated device data. Patient Location: PACU/[facility] [...] BX performed by David Dejesus MD at [facility] ENDOSCOPY ??? PRO COLONOSCOPY, DIAGNOSTIC N/A 03/01/2020 COLONOSCOPY, DIAGNOSTIC performed by David Dejesus MD at [facility] ENDOSCOPY ??? PRO ENDOSCOPIC US EXAM, ESOPH N/A 03/31/2022 UPPER EUS- ENDOSCOPIC ULTRASOUND performed by David Dejesus MD at [facility] ENDOSCOPY ??? PRO UPPER GI ENDOSCOPY, BIOPSY N/A 04/03/2014 UPPER GASTROINTESTINAL ENDOSCOPY,WITH BIOPSY SINGLE OR MULTIPLE performed by David Dejesus MDat [facility] ENDOSCOPY ??? PRO UPPER GI ENDOSCOPY, BIOPSY N/A 03/20/2016 EGD WITH BIOPSY performed by David Dejesus MD at [facility] ENDOSCOPY ??? PRO UPPER GI ENDOSCOPY, BIOPSY N/A 11/22/2018 EGD WITH BIOPSY (WRVU 2.49) performed by David Dejesus MD at [facility] ENDOSCOPY ??? PRO UPPER GI ENDOSCOPY, BIOPSY N/A 03/01/2020 UPPER GASTROINTESTINAL ENDOSCOPY,WITH BIOPSY SINGLE OR MULTIPLE (WRVU 2.49) performed by David Dejesus MD at [facility] ENDOSCOPY ??? PRO UPPER GI ENDOSCOPY, BIOPSY N/A 09/23/2021 EGD WITH BIOPSY (WRVU 2.49) performed by David Dejesus MD at [facility] ENDOSCOPY ??? PRO UPPER GI ENDOSCOPY, BIOPSY N/A 03/31/2022 EGD WITH BIOPSY (WRVU 2.49) performed by David Dejesus MD at [facility] ENDOSCOPY ??? PRO UPPER GI ENDOSCOPY, BIOPSY N/A 07/03/2022 EGD WITH BIOPSY (WRVU 2.49) performed by David Dejesus MD at [facility] ENDOSCOPY ??? PRO UPPER GI ENDOSCOPY, DIAGNOSTIC N/A 04/03/2014 EGD, UPPER GI ENDOSCOPY performed by David Dejesus MD at [facility] ENDOSCOPY ??? PRO UPPER GI ENDOSCOPY, DIAGNOSTIC N/A 03/01/2020 EGD, UPPER GI ENDOSCOPY performed by David Dejesus MD at [facility] ENDOSCOPY ??? PRO UPPER GI ENDOSCOPY, DIAGNOSTIC N/A 09/09/2022 EGD, UPPER GI ENDOSCOPY (WRVU 2.09) performed by Ayo Russ MD at [facility] MAIN OR Social History Tobacco Use [...] discussed with patient. Plan discussed with MANAGER CONSUMER INSIGHTS and attending. Anesthesia Screening documented in this encounter Miscellaneous Notes * Addendum Note - Jennifer Salomon CRNA - 09/21/2022 4:11 PM EDT Addendum created 09/21/22 1611 by Jennifer Salomon CRNA Intraprocedure Meds edited documented in this encounter Plan of Treatment Upcoming Encounters Date Type Department Care Team (Late st Contact Info) Description 04/26/2024 8:30 AM [place] [address] Gavin Carrillo MD [facility] [place] [address] 06/05/2024 1:20 PM EST Office Visit Cardiology at [address] [phone] Milagros Hernandez MD [facility] [place] [address] Scheduled Procedures Name Priority Associated Diagnoses Date/Ti [...] EDT documented in this encounter Care Teams Test Engineering Manager Relationship Specialty Start Date End Date Ana Gillespie APRN [address] [place] [address] PCP - General Family Medicine 02/03/19 documented as of this encounter
--- OUTSIDE RECORDS SUMMARY | 2024-04-19 22:56 | XMS_ITS | Encounter Summary ---
Author Organization [facility] Address [facility] [place] [address] Care Team Providers Care Clinical Research Coordinator Name Role Phone Ana Gillespie APRN Primary Care Provider [phone] Reason for Visit * Reason Onset Date Comments Disability Paperwork 10/09/2022 Completed L [facility] Term [facility] Medicaid Intake Interview with Jennifer over the phone with Nery Potter from [place] [employer] [facility] Encounter Details Date Type Department Care Team (Late st Contact Info) Description 10/09/2022 Tele[place] [address] Alicia Gillis Disability Paperwork (Completed Corporate Legal Intern Care Medicaid Intake Interview with Jennifer over the phone with Nery Potter from [place] [employer] [facility] ) Social History Tobacco Use Types [...] 04/26/2024 8:30 AM [place] [address] Gavin Carrillo MD [facility] [place] [address] 06/05/2024 1:20 PM EST Office Visit Cardiology at [address] [address] Milagros Hernandez MD [facility] [place] [address] Scheduled Procedures Name Priority Associated Diagnoses Date/Ti me EGD, UPPER GI ENDOSCOPY (WRV U 2.09) Peptic stricture of esophagus documented as of this encounter Visit Diagnoses Not on filedocumented in this encounter Care Teams Clinical Research Coordinator Relationship Specialty Start Date End Date Ana Gillespie APRN [address] [place] [address] PCP - General Family Medicine 02/03/19 documented as of this encounter
--- OUTSIDE RECORDS SUMMARY | 2024-04-19 22:56 | XMS_ITS | Encounter Summary ---
Author Organization [facility] Address [facility] [place] [address] Care Team Providers Care Quality Control Assessor Name Role Phone Ana Gillespie APRN Primary Care Provider [phone] Encounter Details Date Type Department Care Team (Late st Contact Info) Description 11/18/2022 Orders Only Endocrinology at [place] [phone] Dixie Tadeo MD [facility] [place] [address] Social History Tobacco Use Types Packs/Day Years [...] 04/26/2024 8:30 AM EST [place] [address] Gavin Carrillo MD [facility] INTERVENTION[place] [address] 06/05/2024 1:20 PM EST Office Visit Cardiology at [address] [phone] Milagros Hernandez MD [facility] [place] [address] Scheduled Procedures Name Priority Associated Diagnoses Date/Ti me EGD, UPPER GI ENDOSCOPY (WRV U 2.09) Peptic stricture of esophagus documented as of this encounter Visit Diagnoses Not on filedocumented in this encounter Care Teams Quality Control Assessor Relationship Specialty Start Date End Date Ana Gillespie APRN [address] [place] [address] PCP - General Family Medicine 02/03/19 documented as of this encounter
--- OUTSIDE RECORDS SUMMARY | 2024-04-19 22:56 | XMS_ITS | Encounter Summary ---
Author Organization [facility] [place] [address] Care Team Providers Care Road Service Locksmith Name Role Phone Ana Gillespie VAUGHN Primary Care Provider [phone] Encounter Details Date Type Department Care Team (Late st Contact Info) Description 09/29/2022 Telephone [place] [phone] Elsie Erickson APRN [facility] [place] [address] Social History Tobacco Use Types Packs/Day Years [...] 04/26/2024 8:30 AM EST [place] [address] Gavin Carrillo MD [facility] [place] [address] 06/05/2024 1:20 PM EST Office Visit Cardiology at [address] [phone] Milagros Hernandez MD [facility] [place] [address] Scheduled Procedures Name Priority Associated Diagnoses Date/Ti me EGD, UPPER GI ENDOSCOPY (WRV U 2.09) Peptic stricture of esophagus documented as of this encounter Visit Diagnoses Not on filedocumented in this encounter Care Teams Road Service Locksmith Relationship Specialty Start Date End Date Ana Gillespie APRN [address] [place] [address] PCP - General Family Medicine 02/03/19 documented as of this encounter
--- OUTSIDE RECORDS SUMMARY | 2024-04-19 22:56 | XMS_ITS | Encounter Summary ---
Author Organization [facility] Address [facility] Marly petersen [place] [id number] Care Team Providers Care Funeral Pre Arrangement Specialist Name Role Phone Ana Gillespie APRN Primary Care Provider [phone] Encounter Details Date Type Department Care Team [...] 04/26/2024 8:30 AM EST Appointment Radiology at [place] [phone] Gavin Carrillo MD [facility] [place] [address] 06/05/2024 1:20 PM EST Office Visit Cardiology at [address] [phone] Milagros Hernandez MD [facility] [place] [address] Scheduled Procedures Name Priority Associated Diagnoses Date/Ti me EGD, UPPER GI ENDOSCOPY (WRV U 2.09) Peptic stricture of esophagus documented as of this encounter Visit Diagnoses Not on filedocumented in this encounter Care Teams Funeral Pre Arrangement Specialist Relationship Specialty Start Date End Date Ana Gillespie APRN [address] [place] [address] PCP - General Family Medicine 02/03/19 documented as of this encounter
--- OUTSIDE RECORDS SUMMARY | 2024-04-19 22:56 | XMS_ITS | Encounter Summary ---
Author Organization [facility] Address [facility] [place] [address] Care Team Providers Care Vp Ancillary Name Role Phone Ana Gillespie APRN Primary Care Provider [phone] Encounter Details Date Type Department Care Team (Late st Contact Info) Description 11/12/2022 11:30 AM EDT Office Visit [place] [phone] Dixie Tadeo MD [facility] [place] [address] Type 2 diabetes mellitus with diabetic polyneuropathy, [...] mg 250mg x4 per TF can [] 7510-4442 mg [] 0194-3407 mg [] Above 1500 mg Medications: Current [...] glucose meter kit. 1 each 0 Insulin [place], Disposable, (BD INSULIN PEN NEEDLE UF MINI) [...] 30 ng/ml and above. Was started on [id number],000 U Q weekly when inpatient. C. Will order BMD by DXA now, will be done at [facility] D. If 25 Vit D at [...] 04/26/2024 8:30 AM EST Appointment [place] [address] Gavin Carrillo MD [facility] DR INTERVENTIONAL [place] [address] 06/05/2024 1:20 PM EST Office Visit Cardiology at [address] [phone] Milagros Hernandez MD [facility] [address] Scheduled Procedures Name Priority Associated Diagnoses Date/Ti me EGD, UPPER GI ENDOSCOPY (WRV U 2.09) Peptic stricture of esophagus documented as of this encounter Visit Diagnoses Diagnosis Type 2 diabetes mellitus with diabetic polyneuropathy, with long-term current use of insulin Osteoporosis, unspecified osteoporosis type, unspecified pathological fracture presence documented in this encounter Care Teams Vp Ancillary Relationship Specialty Start Date End Date Ana Gillespie APRN [address] [place] [address] PCP - General Family Medicine 02/03/19 documented as of this encounter
--- OUTSIDE RECORDS SUMMARY | 2024-04-19 22:56 | XMS_ITS | Encounter Summary ---
Author Organization [facility] Address [facility] [place] [address] Care Team Providers Care Nuclear Radiologist Name Role Phone Ana Gillespie VAUGHN Primary Care Provider [phone] Reason for Visit * Diagnostic Test (Routine) - Closed Specialty Diagnoses / Procedures Referred By Esperanza rodríguez Referred To Contact Radiology Diagnoses Neuroleptic-induced parkinsonism Procedures IR G-Tube Check/Change IR GJ-Tube Check/Change Fannie Conde PA [facility] [place] [address] [facility] [place] [address] Referral ID Status Reason Start Date Expiration Date V isits Requested Visits Authorized [id number] Closed Specialty Service Requested 11/23/2022 05/26/2024 1 1 Encounter Details Date Type Department Care Team (Latest Contact Info) Description 11/27/2022 1:04 PM EDT - 11/27/2022 11:59 PM EDT Hospital [place] [address] Azeem Alarcon MD [facility] [place] [address] Neuroleptic-induced parkinsonism Discharge Disposition: Home Social History [...] strips. 300 each 3 12/14/2014 Blood-Glucose Meter (Clinician TherapeuticsTOUCH ULTRA2) KitIndications:Type 2 diabetes mellitus, uncontrolled by Other route. 1 = one blood glucose meter kit. 1 each 0 12/14/2014 Insulin [place], Disposable, (BD INSULIN PEN NEEDLE UF MINI) [...] times daily. 360 tablet 3 10/22/2022 03/23/2024 insulin isophane- NPH 100 unit/mL (3 mL) [...] of : 1960 AGE: 62 y.o. Address: [address] [address] (home) Mobile: Telephone Information: Referring Provider: Fannie Conde REASON FOR VISIT: Order Questions Answers Where will study be performed? [facility] Radiology [120] Is the patient on [...] of : 1960 AGE: 62 y.o. Address: [address] [phone] (home) Mobile: Telephone Information: Referring Provider: Fannie Conde REASON FOR VISIT: Order Questions Answers Where will study be performed? [facility] Radiology [120] Is the patient on [...] 04/26/2024 8:30 AM [place] [phone] Gavin Carrillo MD [facility] [place] [address] 06/05/2024 1:20 PM EST Office Visit Cardiology at [address] [phone] Milagros Hernandez MD [facility] [place] [address] Scheduled Procedures Name Priority Associated Diagnoses Date/Ti [...] monitored. Technique: The patient was positioned supine. Director Print imaging was performed with air injection through [...] Glucose, POC 128 65 - 199 mg/dL [facility] Comment: Supplemental ranges: <140 mg/dL before meals <180 mg/dL all other times of the day Blood 11/27/2022 1:25 PM EDT 11/27/2022 1:25 PM EDT Azeem Alarcon MD POINT OF CARE TEST O RDERABLES [facility] [place] [address] documented in this encounter Visit Diagnoses Diagnosis Neuroleptic-induced parkinsonism Secondary Parkinsonism documented in this encounter Care Teams Nuclear Radiologist Relationship Specialty Start Date End Date Ana Gillespie APRN [address] [place] [address] PCP - General Family Medicine 02/03/19 documented as of this encounter
--- OUTSIDE RECORDS SUMMARY | 2024-04-19 22:56 | XMS_ITS | Encounter Summary ---
Author Organization [facility] Marly [place] [address] Care Team Providers Care Content Strategist Name Role Phone Ana Gillespie VAUGHN Primary Care Provider [phone] Reason for Visit * Reason Onset Date Comments Diabetes 09/30/2022 Encounter Details Date Type Department Care Team (Late st Contact Info) Description 09/30/2022 Telephone [place] [phone] Elsie Erickson APRN [facility] [place] [address] Diabetes Social History Tobacco Use Types Packs/Day [...] 04/26/2024 8:30 AM EST Appointment [place] [phone] Gavin Carrillo MD [facility] [place] [address] 06/05/2024 1:20 PM EST Office Visit Cardiology at [address] [address] Milagros Hernandez MD [facility] [place] [address] Scheduled Procedures Name Priority Associated Diagnoses Date/Ti me EGD, UPPER GI ENDOSCOPY (WRV U 2.09) Peptic stricture of esophagus documented as of this encounter Visit Diagnoses Not on filedocumented in this encounter Care Teams Content Strategist Relationship Specialty Start Date End Date Ana Gillespie APRN [address] [place] [address] PCP - General Family Medicine 02/03/19 documented as of this encounter
--- OUTSIDE RECORDS SUMMARY | 2024-04-19 23:01 | XMS_ITS | Encounter Summary ---
Author Organization [facility] Address [facility] [place] [address] Care Team Providers Care Coater Name Role Phone Ana Gillespie VAUGHN Primary Care Provider [phone] Encounter Details Date Type Department Care Team (Late st Contact Info) Description 08/14/2022 External Results Administration [place] [phone] Social History Tobacco Use Types Packs/Day Years [...] 04/26/2024 8:30 AM EST Appointment Radiology at [place] [phone] Gavin Carrillo MD [facility] [place] [address] 06/05/2024 1:20 PM EST Office Visit Cardiology at [address] [phone] Milagros Hernandez MD [facility] [place] [address] Scheduled Procedures Name Priority Associated Diagnoses Date/Ti me EGD, UPPER GI ENDOSCOPY (WRV U 2.09) Peptic stricture of esophagus documented as of this encounter Procedures Procedure Name Priority Date/Time Associated Diagnosis Comments ECG SCAN Routine 08/14/2022 documented in this encounter Results * Scan Doc: ECG (08/14/2022) Historical Provider MD LEÓN MGLala SCAN EX T ORDR/RSLT documented in this encounter Visit Diagnoses Not on filedocumented in this encounter Additional Health Concerns Infection Onset Date Last Indicated Resolved Time Rule Out COVID-08/15/2022 08/15/2022 08/15/2022 11:30 AM EDT Rule Out COVID-19 08/15/2022 08/15/2022 08/15/2022 3:01 PM EDT documented as of this encounter Care Teams Coater Relationship Specialty Start Date End Date Ana Gillespie APRN [address] [place] [address] PCP - General Family Medicine 02/03/19 documented as of this encounter
--- OUTSIDE RECORDS SUMMARY | 2024-04-19 23:01 | XMS_ITS | Encounter Summary ---
Author Organization [facility] Address [facility] [place] [address] Care Team Providers Care Automatic Seamer Name Role Phone Ana Gillespie VAUGHN Primary Care Provider [phone] Encounter Details Date Type Department Care Team (Late st Contact Info) Description 08/08/2022 12:15 AM EDT Ancillary Procedure Radiology Library at [facility] [place] [phone] Social History Tobacco Use Types Packs/Day Years [...] 04/26/2024 8:30 AM EST Appoint[place] [phone] Gavin Carrillo MD [facility] INTERVENTIONAL RADIOLOGY [place], [place] [address] 06/05/2024 1:20 PM EST Office Visit Cardiology at [address] [phone] Milagros Hernandez MD [facility] [address] Scheduled Procedures Name Priority Associated Diagnoses Date/Ti [...] is for storage only. Ayo Serna MD [facility] FILM LIBRARY ORD ERABLES documented in this encounter Visit Diagnoses Not on filedocumented in this encounter Care Teams Automatic Seamer Relationship Specialty Start Date End Date Ana Gillespie APRN [address] [place] [address] PCP - General Family Medicine 02/03/19 documented as of this encounter
--- OUTSIDE RECORDS SUMMARY | 2024-04-19 23:01 | XMS_ITS | Encounter Summary ---
Author Organization [facility] [place] [address] Care Team Providers Care Assembly Line Leader Name Role Phone Jose Miguel Ana PROFESSIONAL FIGHTER Primary Care Provider [phone] Encounter Details Date Type Department Care Team (Late st Contact Info) Description 08/09/2022 Ancillary Procedure Radiology Library at [place] [address] Ana Gillespie APRN [address] [place] [address] Social History Tobacco Use Types [...] 04/26/2024 8:30 AM EST [place] [phone] Gavin Carrillo MD [facility] [place] [address] 06/05/2024 1:20 PM EST Office Visit Cardiology at [address] [phone] Milagros Hernandez MD [facility] [place] [address] Scheduled Procedures Name Priority Associated Diagnoses Date/Ti me EGD, UPPER GI ENDOSCOPY (WRV U 2.09) Peptic stricture of esophagus documented as of this encounter Procedures Procedure Name Priority Date/Time Associated Diagnosis Comments FILM LIBRARY FLUORO OR [id number] ONLY Routine 08/09/2022 12:00 AM EDT documented in this encounter Results * Film Library - Fluoro or C Arm Storage Only (08/09/2022 12:00 AM EDT) Narrative [facility] - 08/14/2022 6:05 PM EDT This exam is auto-finalizing. It's purpose is for storage only. Ana NAZARIO FILM LIBRARY ORD ERABLES [place], [place] documented in this encounter Visit Diagnoses Not on filedocumented in this encounter Care Teams Assembly Line Leader Relationship Specialty Start Date End Date Ana Gillespie APRN [address] [place] [address] PCP - General Family Medicine 02/03/19 documented as of this encounter
--- OUTSIDE RECORDS SUMMARY | 2024-04-19 23:01 | XMS_ITS | Encounter Summary ---
Author Organization [facility] [place] [address] Care Team Providers Care Director Clinical Applications Name Role Phone Ana Gillespie VAUGHN Primary Care Provider Encounter Details Date Type Department Care Team (Late st Contact Info) Description 08/12/2022 Ancillary Procedure Radiology Library at [facility] [place] [phone] Social History Tobacco Use Types Packs/Day Years [...] 04/26/2024 8:30 AM EST [place] [phone] Gavin Carrillo MD [facility] INTERVENTIONAL RADIOLOGY [place], [place] [phone] 06/05/2024 1:20 PM EST Office Visit Cardiology at [address] [phone] Milagros Hernandez MD [facility] [place] [address] Scheduled Procedures Name Priority Associated Diagnoses Date/Ti [...] is for storage only. Ayo Serna MD [facility] FILM LIBRARY ORD ERABLES documented in this encounter Visit Diagnoses Not on filedocumented in this encounter Care Teams Director Clinical Applications Relationship Specialty Start Date End Date Ana Gillespie APRN [address] [place] [address] PCP - General Family Medicine 02/03/19 documented as of this encounter
--- OUTSIDE RECORDS SUMMARY | 2024-04-19 23:01 | XMS_ITS | Encounter Summary ---
Author Organization [facility]ly [facility] Address [facility] [place] [address] Care Team Providers Care Video Control Engineer Name Role Phone Ana Gillespie VAUGHN Primary Care Provider [phone] Encounter Details Date Type Department Care Team (Late st Contact Info) Description 08/08/2022 12:05 AM EDT Ancillary Procedure Radiology Library at [facility], [place] [place] [phone] Social History Tobacco Use Types Packs/Day Years [...] 04/26/2024 8:30 AM [place] [phone] Gavin Carrillo MD [facility] INTERVENTIONAL RADIOLOGY [place], [place] [id number] 06/05/2024 1:20 PM EST Office Visit Cardiology at [address] [address] Milagros Hernandez MD [facility] [address] Scheduled Procedures Name Priority Associated Diagnoses Date/Ti [...] on filedocumented in this encounter Care Teams Video Control Engineer Relationship Specialty Start Date End Date Ana Gillespie APRN [address] [place] [address] PCP - General Family Medicine 02/03/19 documented as of this encounter
--- OUTSIDE RECORDS SUMMARY | 2024-04-19 23:01 | XMS_ITS | Encounter Summary ---
[place] [address] Care Team Providers Care Traffic Warehouse Supervisor Name Role Phone Ana Gillespie VAUGHN Primary Care Provider [phone] Reason for Visit * Auth/Cert (Routine) Specialty Diagnoses / Procedures Referred By Esperanza t Referred To Contact Diagnoses Shock CARDIOGENIC PULMONARY EDEMA Procedures ER CLAUDIOI Carlos Terry MD [facility] [place] [address] [facility] Referral ID Status Reason Start Date Expiration Date Visits Re quested Visits Authorized [id number] 1 1 Encounter Details Date Type Department Care Team (Late st Contact Info) Description 09/09/2022 11:32 PM EDT Anesthesia Event [place] [address] Chon Moctezuma MD [facility] [place] [address] Darin Chaves MD [facility] [place] [address] Anesthesia Record Procedure Summary Procedure Name Responsible [...] stop data 0034 Recovery or ICU Handoff Syara ent care was transferred to the destination [...] side of arm), right; pressure injectable catheter ([id number]); 5 Fr; 0 cm; 33 cm; 33 [...] Procedure Summary Date: 09/09/22 Room / Location: [place] [address] [facility] MAIN OR Anesthesia Start: 2331 Anesthesia Stop: Procedure: EGD, UPPER GI ENDOSCOPY (WRVU 2.09) Diagnosis: (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 PRO COLONOSCOPY, DIAGNOSTIC N/A 03/01/2020 COLONOSCOPY, DIAGNOSTIC performed by David Dejesus MD at [facility] ??? PRO ENDOSCOPIC US EXAM, ESOPH N/A 03/31/2022 UPPER EUS- ENDOSCOPIC ULTRASOUND performed by David Dejesus MD at [facility] ??? PRO UPPER GI ENDOSCOPY, BIOPSY N/A 04/03/2014 UPPER GASTROINTESTINAL ENDOSCOPY,WITH BIOPSY SINGLE OR MULTIPLE performed by David Dejesus MDat [facility] ??? PRO UPPER GI ENDOSCOPY, BIOPSY N/A 03/20/2016 EGD WITH BIOPSY performed by David Dejesus MD at [facility] ??? PRO UPPER GI ENDOSCOPY, BIOPSY N/A 11/22/2018 EGD WITH BIOPSY (WRVU 2.49) performed by David Dejesus MD at [facility] ??? PRO UPPER GI ENDOSCOPY, BIOPSY N/A 03/01/2020 UPPER GASTROINTESTINAL ENDOSCOPY,WITH BIOPSY SINGLE OR MULTIPLE (WRVU 2.49) performed by David Dejesus MD at [facility] ??? PRO UPPER GI ENDOSCOPY, BIOPSY N/A 09/23/2021 EGD WITH BIOPSY (WRVU 2.49) performed by David Dejesus MD at [facility] ??? PRO UPPER GI ENDOSCOPY, BIOPSY N/A 03/31/2022 EGD WITH BIOPSY (WRVU 2.49) performed by David Dejesus MD at [facility] ??? PRO UPPER GI ENDOSCOPY, BIOPSY N/A 07/03/2022 EGD WITH BIOPSY (WRVU 2.49) performed by David Dejesus MD at [facility] ??? PRO UPPER GI ENDOSCOPY, DIAGNOSTIC N/A 04/03/2014 EGD, UPPER GI ENDOSCOPY performed by David Dejesus MD at [facility] ??? PRO UPPER GI ENDOSCOPY, DIAGNOSTIC N/A 03/01/2020 EGD, UPPER GI ENDOSCOPY performed by David Dejesus MD at [facility] Social History Tobacco Use ??? [...] 04/26/2024 8:30 AM [place] [address] Gavin Carrillo MD [facility] [place] [address] 06/05/2024 1:20 PM EST Office Visit Cardiology at [address] [phone] Milagros Hernandez MD [facility] [place] [address] Scheduled Procedures Name Priority Associated [...] EDT documented in this encounter Care Teams Traffic Warehouse Supervisor Relationship Specialty Start Date End Date Ana Gillespie APRN [address] [place] [address] PCP - General Family Medicine 02/03/19 documented as of this encounter
--- OUTSIDE RECORDS SUMMARY | 2024-04-19 23:01 | XMS_ITS | Encounter Summary ---
Author Organization [facility] Address [facility] [place] [address] Care Team Providers Care Electronic Systems Technician Name Role Phone Ana Gillespie VAUGHN Primary Care Provider [phone] Encounter Details Date Type Department Care Team (Late st Contact Info) Description 08/12/2022 12:05 AM EDT Ancillary Procedure Radiology Library at [facility] [place] [phone] Social History Tobacco Use Types Packs/Day Years [...] 04/26/2024 8:30 AM EST [place] [phone] Gavin Carrillo MD [facility] INTERVENTIONAL RADIOLOGY [place], [place] [phone] 06/05/2024 1:20 PM EST Office Visit Cardiology at [address] [phone] Milagros Hernandez MD [facility] [place] [address] Scheduled Procedures Name Priority Associated Diagnoses Date/Ti [...] is for storage only. Ayo Serna MD [facility] ORD ERABLES documented in this encounter Visit Diagnoses Not on filedocumented in this encounter Care Teams Electronic Systems Technician Relationship Specialty Start Date End Date Ana Gillespie APRN [address] [place] [address] PCP - General Family Medicine 02/03/19 documented as of this encounter
--- OUTSIDE RECORDS SUMMARY | 2024-04-19 23:01 | XMS_ITS | Encounter Summary ---
Author Organization [facility] Address [facility] [place] [address] Care Team Providers Care Melter Loader Name Role Phone Ana Gillespie APRN Primary Care Provider [phone] Encounter Details Date Type Department Care Team (Latest Contact Info) Description 08/14/2022 9:30 PM EDT - 08/14/2022 11:10 PM EDT Hospital Encounter [place] [phone] Carlos Terry MD [facility] [place] [address] Discharge Disposition: Home Social History Tobacco Use [...] meter kit. 1 each 0 12/14/2014 Insulin Willis, Disposable, (BD INSULIN PEN NEEDLE UF MINI) 31 x 07/23 NeedleIndications:Di abetes mellitus type 2, uncontrolled 1 Device by [facility] [...] 8:30 AM EST [place] [address] Gavin Carrillo MD [facility] [place] [address] 06/05/2024 1:20 PM EST Office Visit Cardiology at [address] [address] Milagros Hernandez MD [facility] [place] [address] Scheduled Procedures Name Priority Associated Diagnoses Date/Ti me EGD, UPPER GI ENDOSCOPY (WRV U 2.09) Peptic stricture of esophagus documented as of this encounter Visit Diagnoses Not on filedocumented in this encounter Care Teams Melter Loader Relationship Specialty Start Date End Date Ana Gillespie APRN [address] [place] [address] PCP - General Family Medicine 02/03/19 documented as of this encounter
--- OUTSIDE RECORDS SUMMARY | 2024-04-19 23:01 | XMS_ITS | Encounter Summary ---
Author Organization [facility] [place] [address] Care Team Providers Care Employment Evaluator/Case Manager Name Role Phone Chris Stanley VAUGHN Primary Care Provider [phone] Reason for Visit * Auth/Cert (Routine) Specialty Diagnoses / Procedures Referred By Esperanza rodríguez Referred To Contact Diagnoses Shock CARDIOGENIC PULMONARY EDEMA Procedures ER Carlos Melton MD [facility] [address] [facility] Referral ID Status Reason Start Date Expiration Date Visits Re quested Visits Authorized [id number] 1 1 Encounter Details Date Type Department Care Team (Late st Contact Info) Description 09/11/2022 3:30 PM EDT - 09/11/2022 4:50 [place] [address] Aiden Flores MD [facility] [place] [address] PERCUTANEOUS GASTROSTOMY Social History Tobacco Use Types [...] deficiency anemia,??GERD??c/b??esophagitis &??Farrell's esophagus??presenting in transfer from [facility], suspected to be in cardiogenic shock and [...] discharge. [facility] #Bipolar Disorder #Hospital Associated Delirium ?? The [...] escalated to 4L NC. On arrival to [facility], the patient was given further doses of [...] (80 lasix) & dobutamine withconsequent transfer to [facility]. ?? On arrival, the patient was requiring requiring roughly NE 30, dobutamine 2.5, and epinephrine of 5. Hospital Course: Ishan Irving was admitted to the Cardiology Service on 08/14/2022 and transferred to [facility] on 08/30/2022. The following acute and chronic medical issues were identified during this phase of their hospitalization, and managed as summarized below by problem: #Type II NSTEMI #Mixed cardiogenic and distributive shock #Acute HFrEF 2/2 stress cardiomyopathy Following admission to the [facility], a [place]abelle catheter was placed for monitoring of hemodynamic [...] depressed mental status, she was extubated to [facility] on 08/23, which she tolerated well. [...] in a dramatic improvement in psychomotor slowing [id number] hours. Her mental status improved significantly over her course and she was discharged fully oriented. She was continued on her home Depakote and Seroquel. #History of Drug-Induced Parkinsonism #Severe Oropharyngeal Dysphagia #Distal Esophageal Dysmotility #GERD complicated by Farrell's Esophagus and Esophagitis Ishan demonstrated severe dysphagia on an MBS obtained by ELEVATOR EXAMINER after extubation. While it was suspected initially [...] who have questions please contact the health infant childcare provider that requested your imaging first. Electronically signed by: Davi Terry MD, [facility] ([phone]), at 08/15/2022 3:53 AM XR Abdomen 1 view (Generic) (Exam End: 08/15/2022 8:33 AM) Narrative EXAMINATION: XR ABDOMEN 1 VIEW (GENERIC) CLINICAL HISTORY: 62 yo F w/ shock, confirm NG tube placement TECHNIQUE: Single radiograph of the lower chest and upper abdomen for purposes of enteric tube verification and otherwise nondiagnostic. The lower abdomen is excluded from gymfi-hn-pcmo. COMPARISON: Abdominal radiograph 08/15/2022 FINDINGS: * An [...] who have questions please contact the health infant childcare provider that requested your imaging first. Electronically signed by: Liliane Adams MD, [facility] ([phone]), at 08/15/2022 9:05 AM XR Chest One View (Exam End: 08/15/2022 1:14 AM) Narrative EXAMINATION: XR CHEST ONE VIEW CLINICAL HISTORY: confirm [place] placement TECHNIQUE: 1 view of the chest [...] who have questions please contact the health infant childcare provider that requested your imaging first. Electronically signed by: Davi Terry MD, [facility] ([phone]), at 08/15/2022 3:55 AM XR Abdomen 1 [...] who have questions please contact the health infant childcare provider that requested your imaging first. Electronically signed by: Davi Terry MD, [facility] ([phone]), at 08/15/2022 6:41 AM XR Chest One [...] who have questions please contact the health infant childcare provider that requested your imaging first. Electronically signed by: Alfonso Adams MD, [facility] ([phone]), at 08/16/2022 10:[address] Head wo [...] who have questions please contact the health infant childcare provider that requested your imaging first. Electronically signed by: Moustapha Correa MD, [facility] ([phone]), at 08/16/2022 11:19 PM XR Abdomen 1 [...] who have questions please contact the health infant childcare provider that requested your imaging first. Electronically signed by: Jenn Pina MD, [facility] ([phone]), at 08/17/2022 2:[address] Head wo Contrast (Generic) (Exam End: 08/18/2022 [...] who have questions please contact the health infant childcare provider that requested your imaging first. Electronically signed by: Antonio Jordan MD, [facility] ([phone]), at 08/18/2022 3:18 PM XR Chest One View (Exam End: 08/19/2022 12:30 PM) Narrative EXAMINATION: XR CHEST ONE VIEW CLINICAL HISTORY: febrile, altered, leukocytosis TECHNIQUE: 1 view of the chest ; AP portable 20 degrees upright COMPARISON: Chest radiograph 08/16/2022 FINDINGS: ET tube tip measures 3.0 cm above consuelo. Enteric catheter descends below the diaphragm and below the evpfg-jw-zejd. Interval removal of right IJ approach PA [...] who have questions please contact the health infant childcare provider that requested your imaging first. Electronically signed by: Alan De Guzman MD, [facility] ([phone]), at 08/19/2022 3:14 PM MRI Brain wo [...] who have questions please contact the health infant childcare provider that requested your imaging first. Electronically signed by: Jagdeep Lee MD, [facility] ([phone]), at 08/20/2022 3:34 AM XR Chest for [...] who have questions please contact the health infant childcare provider that requested your imaging first. Electronically signed by: Alan De Guzman MD, [facility] ([phone]), at 08/19/2022 4:[address] Hip w [...] who have questions please contact the health infant childcare provider that requested your imaging first. Electronically signed by: Aicha Chowdhury MD, [facility] ([phone]), at 08/21/2022 9:[address] Chest w [...] the diaphragm with tip not included the fpbmc-qo-gxna. There is some wall thickening of the [...] the duodenum, not fully included in the hvgmp-on-wvxs. Skeletal structures: No acute osseous findings. No [...] who have questions please contact the health infant childcare provider that requested your imaging first. Electronically signed by: Jagdeep Lee MD, [facility] ([phone]), at 08/21/2022 6:56 AM IR Ultrasound in [...] who have questions please contact the health infant childcare provider that requested your imaging first. Electronically signed by: Viktor Cervantes MD, [facility] ([phone]), at 08/22/2022 12:43 PM XR Pelvis (Generic) [...] who have questions please contact the health infant childcare provider that requested your imaging first. Electronically signed by: Richard Billings MD, [facility] ([phone]), at 08/22/2022 10:[address] Angiogram Coronary [...] who have questions please contact the health infant childcare provider that requested your imaging first. Electronically signed by: Arlette Mays MD, [facility] ([phone]), at 08/27/2022 11:[address] Chest wo [...] who have questions please contact the health infant childcare provider that requested your imaging first. Electronically signed by: MINH QUIROGA MD, [facility] ([phone]), at 08/27/2022 10:48 AM XR Fluoro Barium [...] There is delayed elevation of the larynx penitentiary between the vallecula and piriform sinuses. It [...] who have questions please contact the health infant childcare provider that requested your imaging first. Electronically signed by: Aron Billings MD, [facility] ([phone]), at 08/31/2022 12:02 PM XR Fluoro Barium [...] who have questions please contact the health infant childcare provider that requested your imaging first. Electronically signed by: Alfonso Adams MD, [facility] ([phone]), at 09/04/2022 10:57 AM XR Abdomen 1 [...] who have questions please contact the health infant childcare provider that requested your imaging first. Electronically signed by: Jagdeep Lee MD, [facility] ([phone]), at 09/04/2022 10:35 PM XR Chest One [...] who have questions please contact the health infant childcare provider that requested your imaging first. Electronically signed by: Jagdeep Lee MD, [facility] ([phone]), at 09/04/2022 10:35 PM XR Chest One [...] now extending below the diaphragm and included ipunp-tu-mvgw. Similar appearance of mild elevation of the right hemidiaphragm with streaky right basilar opacities and some mild patchy opacities at the left lung base. No new focal airspace opacity. No appreciable pleural fluid collection. No pneumothorax. Cardiomediastinal silhouette is unchanged. No evidence of pulmonary edema. No acute osseous abnormality. Impression 1. Reposition enteric tube now extending below the diaphragm and included ewsjy-gc-sqfv. 2. Similar appearance of elevated right hemidiaphragm and linear/patchy bibasilar opacities which may represent atelectasis or possibly aspiration. Thank you for letting us participate in the care of this patient. If you are a health care provider and have any questions regarding this report, please contact the number below. For patients who have questions please contact the health infant childcare provider that requested your imaging first. Electronically signed by: AUDI PERDOMO MD, [facility] ([phone]), at 09/05/2022 3:43 PM XR Abdomen 1 [...] who have questions please contact the health infant childcare provider that requested your imaging first. Electronically signed by: Camille Garcia MD, [facility] ([phone]), at 09/10/2022 1:16 AM IR G-Tube Placement [...] barrier technique was used throughout. ??A 4 Yemeni glide catheter??was placed??as a??nasoenteric tube??under fluoroscopy with [...] who have questions please contact the health infant childcare provider that requested your imaging first. Film Library- [...] Center 11/12/2022 11:30 AM Dixie Tadeo MD [facility] ENDO [facility] Date and Time Provider and Specialty Location Need to be scheduled Chris Stanley APRN , PCP [address] / [facility] [address] Your Inpatient Doctor(s) at [facility]: Jose Mcleod MD Your Primary Care Provider: Chris Stanley APRN [address] / [facility] [address] For questions regarding this document or issues relating to this hospitalization on the Medical Service, please contact your inpatient physician through the [facility] . Issues afterhours and on weekends will [...] or its attachments. INTERVENTIONAL RADIOLOGY PHONE NUMBERS [phone] ___X___ If you have a NON Low profile feeding tube, call with any questions or concerns. During regular office hours call: [phone]. If it is after regular office hours, weekends or holidays, please call [phone] and ask to speak to the Inbound Sales Consultant jawbone puller for Interventional Radiology. Revised 02/23/19 YOU ARE [...] avoid another low BG in the future. [facility] INTERVENTIONAL RADIOLOGY NURSES NOTE FOR GASTROPEXY SUTURE [...] is during regular office hours, please call [phone]. If it is after regular office hours, or on weekends or holidays, please call [phone] and ask to speak to the Inbound Sales Consultant jawbone puller for Interventional Radiology. Revised 02/23/19 Future Appointments and Orders Future Appointments and Orders Future Appointments Provider Department Dept Phone 11/12/2022 11:30 AM Dixie Tadeo MD Endocrinology at [facility] Arrive at: [facility] [phone] Future Orders Complete By Expires XR Pelvis and Hip 2 Views Left [05849 Custom] 09/09/2022 (Approximate) 03/11/2023 Process Instructions: Scheduling Instructions: Comments: Questions: Where will study be performed?: [facility] Radiology Portable exam?: Reason for exam and clinical history: s/p perc fixation L FNF @[facility], being referred to arthroplasty team for consideration of KYUNG Clinical information / fam questions for radiologist: Stat read required?: Date of injury if applicable: Requested Time: Referral for Home Tube feeds [LCS0750 CPT(R)] As directed Process Instructions: Scheduling Instructions: Comments: Ishan Irving [address] [place] [phone] (home) - Telephone Information: Medicaid Yes/No Medicaid Number: [id number] Narrative: Patient has a feeding tube and requires tube feedings and supplies necessary to maintainnutritional support . VENDOR: [employer] Supporting Diagnosis: esophageal stricture Length of Need: [...] admission to Home Health. [address] [facility] [address] Date of : 1960 Inpatient DOCUMENTATION FOR VNA SERVICES (INCLUDING THOSE PATIENTS WITH MEDICARE COVERAGE REQUIRING HOME VNA SERVICES AND/OR HOSPICE SERVICES) PATIENT'S LOCATION: Ishan Irving [address] [facility] [address] (home) Cell: Telephone Information: Battery Installer's Name: Lee Gasca In discussion with the attending physician, it is certified that this patient is under their care and that they, or a Nurse Practitioner,Clinical Nurse specialist or Physician Administrative Library Assistant who is working directly with them, had [...] for managing ADL's. HOME HEALTH CARE AGENCY: [facility] [address] [address] Start of care: 24-48 hours post DC [...] Chris Stanley APRN [address] / [facility] [address] All VNA agencies which cover the area of patient's residence have been reviewed, either verbally terrence writing, and patient/family have chosen the home health care agency noted Questions: Disciplines Requested: Physical Therapy Occupational Therapy Nursing Provider Contact Information: Chris Stanley APRN [address] [facility] [address] Discharge References/Attachments: Discharge References/Attachments None documented in [...] or its attachments. INTERVENTIONAL RADIOLOGY PHONE NUMBERS [phone] ___X___ If you have a NON Low profile feeding tube, call with any questions or concerns. During regular office hours call: [phone]. If it is after regular office hours, weekends or holidays, please call [phone] and ask to speak to the Inbound Sales Consultant jawbone puller for Interventional Radiology. Revised 02/23/19 YOU ARE [...] avoid another low BG in the future. [facility] INTERVENTIONAL RADIOLOGY NURSES NOTE FOR GASTROPEXY SUTURE [...] is during regular office hours, please call [phone]. If it is after regular office hours, or on weekends or holidays, please call [phone] and ask to speak to the Inbound Sales Consultant jawbone puller for Interventional Radiology. Revised 02/23/19 * Patient [...] Center 11/12/2022 11:30 AM Dixie Tadeo MD [facility] ENDO [facility] Date and Time Provider and Specialty Location Need to be scheduled Chris Stanley APRN , PCP [address] / [facility] [address] Your Inpatient Doctor(s) at [facility]: Jose Mcleod MD Your Primary Care Provider: Chris Stanley APRN [address] / [facility] [address] For questions regarding this document or issues relating to this hospitalization on the Medical Service, please contact your inpatient physician through the [facility] [employer] . Issues afterhours and on weekends will [...] meter kit. 1 each 0 12/14/2014 Insulin [place], Disposable, (BD INSULIN PEN NEEDLE UF MINI) 31 x 07/23 NeedleIndications:Di abetes mellitus type 2, uncontrolled 1 Device by [facility]Non-Drug; Combo Route) route 3 times [...] spent >30 minutes (Day of Discharge Code 86759) involved in the final examination of the [...] deficiency anemia,??GERD??c/b??esophagitis &??Farrell's esophagus??presenting in transfer from [facility], suspected to be in cardiogenic shock and [...] BG in the future. Elsie Erickson APRN [facility] Endocrinology Diabetes Management Pager [phone] minutes of 50 minutes was spent [...] ADLs]: Hands on Surveillance [continuous indirect monitoring]: [facility] Bed alarm Room near nurses' station Rounding Patient-specific fall prevention interventions for sensory deficits provided, if applicable: [X] No * Jose Mcleod MD - 09/24/2022 4:21 PM EDT Hospital Medicine Attending Daily Progress Note Admit Date: 08/14/2022 Hospital Day 41 days Active Hospital Problems Diagnosis ??? Bipolar disorder ??? T2DM (type 2 diabetes mellitus) Resolved Hospital Problems Diagnosis Date Resolved ??? Shock 08/22/2022 [facility] Active Non-Hospital Problems Diagnosis ??? Neuroleptic-induced [...] fellows interpretation Confirmed by fellow Niurka Rose ([id number]) on 09/07/2022 8:45:34 AM Confirmed by MD [...] anemia,??GERD??c/b??esophagitis &??Farrell's esophagus, who was admitted to [facility] on 08/14/2022??for mixed shock and stress cardiomyopathy [...] with family 09/25 Team Pager( Coverage 30/11): #[phone] PCP: Chris Stanley, VAUGHN [phone] Attestation: Attending Attestation and Certification I have [...] IPI criteria and is awaiting rehabilitation or alf facility placement with active referrals in process [...] importance to continue to progress athome. Pager: [phone] DANIELA Montes 09/24/2022 Occupational Therapy Rehabilitation Department [...] room in the hospital. [facility] [phone] * Alicia Gillis - 09/24/2022 10:38 AM [...] GOAL OUTCOME EVALUATION: * Elsie Erickson [place], INTEGRATION PROJECT MANAGER - 09/23/2022 3:41 PM EDT Follow Up [...] deficiency anemia,??GERD??c/b??esophagitis &??Farrell's esophagus??presenting in transfer from [facility], suspected to be in cardiogenic shock and [...] 14 hrs Monitoring: Q4 Elsie Erickson APRN [facility] Endocrinology Diabetes Management Pager [phone] minutes of this 50 minute visit [...] fellows interpretation Confirmed by fellow Niurka Rose ([id number]) on 09/07/2022 8:45:34 AM Confirmed by MD [...] anemia,??GERD??c/b??esophagitis &??Farrell's esophagus, who was admitted to [facility] on 08/14/2022??for mixed shock and stress cardiomyopathy [...] with family 09/25 Team Pager( Coverage 30/11): #[phone] PCP: Chris Stanley APRN [phone] Attestation: Attending Attestation and Certification I have [...] IPI criteria and is awaiting rehabilitation or alf facility placement with active referrals in process Jose Mcleod MD 09/23/2022 * Feroz Portillo, CLINICAL SALES CONSULTANT - 09/23/2022 1:55 PM EDT Physical Therapy [...] deficiency anemia,??GERD??c/b??esophagitis &??Farrell's esophagus??presenting in transfer from [facility], suspected to be in cardiogenic shock and [...] attempting to sit. [facility]. Discharge [...] TE-F x 2 FEROZ PORTILLO PTA Pager: [phone] Physical Therapy Inpatient Rehabilitation Department * Alicia Glez, DANIELA - 09/23/2022 10:14 AM EDT Occupational Therapy Treatment Note Treatment Number OT: 8 Patient Dx: Ishan Irving??is a 62 y.o.??female??admitted on 08/14/2022??with a medical history notable for??recent L femoral neck fracture,??bipolar disorder, resolving medication-induced Parkinsonism, insulin- dependent diabetes mellitus,??hx of alcohol use disorder (reported to be in remission for 1.5 years) c/b chronic pancreatitis, iron deficiency anemia,??GERD??c/b??esophagitis &??Farrell's esophagus??presenting in transfer from [facility], suspected to be in cardiogenic shock and [...] times/wk Total Minutes, Occupational Therapy: 44 (x3 [facility] [phone]) Pager: [phone] DANIELA Montes 09/23/2022 Occupational Therapy Rehabilitation Department [...] 1000) ??? tube feeding diet Stopped (09/17/22 4689) PRN: prochlorperazine, ondansetron, polyethylene glycoL, diclofenac, senna, [...] fellows interpretation Confirmed by fellow Niurka Rose ([id number]) on 09/07/2022 8:45:34 AM Confirmed by MD [...] anemia,??GERD??c/b??esophagitis &??Farrell's esophagus, who was admitted to [facility] on 08/14/2022??for mixed shock and stress cardiomyopathy [...] with family 09/25 Team Pager(MD Coverage 30/11): #[phone] PCP: Chris Stanley, VAUGHN [phone] Attestation: Attending Attestation and Certification I have [...] IPI criteria and is awaiting rehabilitation or alf facility placement with active referrals in process Jose Mcleod MD 09/22/2022 * Jenn Staples PA - 09/22/2022 7:46 AM EDT ORTHOPAEDIC SURGERY INPATIENT PROGRESS NOTE Patient Name: Ishan Irving Age: 62 y.o. Surgery/Issue: concern for septic arthritis s/p ORIF of the L Hip Fx at [facility] Attending: David Lynne MD Date of surgery: 08/09/2022 SUBJECTIVE / INTERVAL HISTORY: Ms Irving is a 62 y.o. woman with a history of L femoral neck fracture,??bipolar disorder, resolving medication-induced Parkinsonism, insulin- dependent diabetes mellitus,??hx of alcohol use disorder (reported to be in remission for 1.5 years) c/b chronic pancreatitis, iron deficiency anemia,??GE RD??c/b??esophagitis &??Farrell's esophagus, who was admitted to [facility] on 08/14/2022??for mixed shock and stress cardiomyopathy who transferred to Hospital Medicine due to persistent dysphagia. Per primary team patient remains clinically stable. Ms Irving is being seen today by orthopedics for 1 month surveillance check of possible septic arthritis s/p ORIF of Right hip performed by Dr. Lynne at [facility] on 08/09/2022. Today Patient reports thatshe is [...] patient follow up with Orthopedic surgeon at [facility] for continued surveillance of fracture healing. No further follow up with Orthopedics at [facility] is necessary. Orthopedics will sign off at this time. Please page [phone] with any questions or concerns that may arise. - Activity: WBAT LLE - DVT prophylaxis: Per primary - Antibiotics: Per primary - Diet: Per primary ROSLYN Potter-Socorro 09/24/2022 Future Appointments Date Time Provider Department Center 09/25/2022 9:00 AM [facility] IR RECOVERY MH IR [facility] Rad 11/12/2022 11:30 AM Dixie Tadeo MD [facility] * Xochitl Brooks RN - 09/22/2022 5:03 AM EDT OUTCOME EVALUATION NOTE: OUTCOME SUMMARY: Pt A&O X4. VS as charted on RA. Meds given per JUL, crushed through the PEG tube. Tube feed Nutren 1.5 cyclic [id number]. Pt c/o of tenderness in her L [...] fellows interpretation Confirmed by fellow Niurka Rose ([id number]) on 09/07/2022 8:45:34 AM Confirmed by MD [...] anemia,??GERD??c/b??esophagitis &??Farrell's esophagus, who was admitted to [facility] on 08/14/2022??for mixed shock and stress cardiomyopathy [...] with family 09/25 Team Pager(MD Coverage 30/11): #[phone] PCP: Chris Stanley, VAUGHN [phone] Attestation: Attending Attestation and Certification Please see [...] IPI criteria and is awaiting rehabilitation or alf facility placement with active referrals in process Jose Mcleod MD 09/21/2022 * Feroz Portillo, CLINICAL SALES CONSULTANT - 09/21/2022 1:50 PM EDT Physical Therapy [...] deficiency anemia,??GERD??c/b??esophagitis &??Farrell's esophagus??presenting in transfer from [facility], suspected to be in cardiogenic shock and [...] Billing Code: TE-F x 3 FEROZ PORTILLO CLINICAL SALES CONSULTANT Pager: [phone] Physical Therapy Inpatient Rehabilitation Department * Wilda Blankenship, RD - 09/21/2022 12:11 PM EDT Nutrition Progress Note Ishan Irving??is a 62 y.o.??female??with h/o bipolar, DM, EtOH, esophagitis, who presented to [facility] 3 days ago after being found unresponsive at home.?Patient found to have likely pneumonia+/- aspiration, newly reduced EF. Reason for Assessment: Tube Feeding, Follow-up Nutrition Recommendations: Suggest Cyclic Nutren 1.5 at 72 ml per hour plus 2 scoops of protein powder 14 hrs from 5319-7269 -pended At goal, this will provide: Nutren [...] p.o. Intake, etc. ?? Po diet per ELEVATOR EXAMINER (recs 09/04 NPO s/p MBS) ?? Continue [...] encounter: 67.7 kg (149 lb 3.2 oz). [place] Body Weight (IBW) (kg): 45.45 Usual Body [...] while inpatient THANKS Wilda Blankenship RD Pager #[phone] * Siobhan Harper LPN - 09/20/2022 11:27 [...] anemia,??GERD??c/b??esophagitis &??Farrell's esophagus, who was admitted to [facility] on 08/14/2022 (now on Hospital Day #23)??for [...] barrier technique was used throughout. ??A 4 Yemeni glide catheter??was placed??as a??nasoenteric tube??under fluoroscopy with [...] now extending below the diaphragm and included [id number]. 2. Similarappearance of elevated right hemidiaphragm and [...] anemia,??GERD??c/b??esophagitis &??Farrell's esophagus, who was admitted to [facility] on 08/14/2022 (now on Hospital Day #23)??for [...] IPI criteria and is awaiting rehabilitation or alf facility placement withactive referrals in process Team Pager (MD Coverage 30/11): #[phone] PCP: VAUGHN Whyte MD 09/20/22 * Shirley Thibodeaux RN - 09/20/2022 5:21 AM EDT OUTCOME EVALUATION NOTE: OUTCOME SUMMARY: Pt is A/OX4, VSS on RA. Pt denies SOB,NVD, chest pain. 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 Pt C/O of acid [...] anemia,??GERD??c/b??esophagitis &??Farrell's esophagus, who was admitted to [facility] on 08/14/2022 (now on Hospital Day #23)??for [...] ??? tube feeding diet 1,008 mL (09/19/22 9298) ??? tube feeding diet Stopped (09/17/22 1907) PRN Meds: ondansetron, polyethylene glycoL, prochlorperazine, ondansetron, [...] barrier technique was used throughout. ??A 4 Yemeni glide catheter??was placed??as a??nasoenteric tube??under fluoroscopy with [...] now extending below the diaphragm and included [id number]. 2. Similarappearance of elevated right hemidiaphragm and [...] anemia,??GERD??c/b??esophagitis &??Farrell's esophagus, who was admitted to [facility] on 08/14/2022 (now on Hospital Day #23)??for [...] IPI criteria and is awaiting rehabilitation or alf facility placement withactive referrals in process Team Pager ( Coverage 30/11): #[phone] PCP: VAUGHN Whyte MD 09/19/22 * Shirley Thibodeaux RN - 09/19/2022 4:47 AM EDT OUTCOME EVALUATION NOTE: OUTCOME SUMMARY: Pt is A/OX4, VSS on RA. Pt denies SOB,NVD, chest pain. 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 Pt C/O of nausea, [...] anemia,??GERD??c/b??esophagitis &??Farrell's esophagus, who was admitted to [facility] on 08/14/2022 (now on Hospital Day #23) [...] Hunt MD Attending, Hospital Medicine Service Pager #[phone] 09/18/2022 24 Hour Events: None Subjective: Doing [...] 168 hours. No results for input(s): PHART, IKV7XHG, PO2ART, AGY3SCX in the last 168 hours. Micro: No [...] IPI criteria and is awaiting rehabilitation or alf facility placement withactive referrals in process Alan [...] deficiency anemia,??GERD??c/b??esophagitis &??Farrell's esophagus??presenting in transfer from [facility], suspected to be in cardiogenic shock and [...] times/wk Total Minutes, Occupational Therapy: 48 (x3 [facility] [id number]) Pager: [phone] DANIELA Montes 09/18/2022 Occupational Therapy Rehabilitation Department * Shirley Thibodeaux RN - 09/18/2022 3:01 AM EDT OUTCOME EVALUATION NOTE: OUTCOME SUMMARY: Pt is A/OX4, VSS on RA. Pt denies SOB,NVD, chest pain. 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 Pt C/O of nausea, [...] anemia,??GERD??c/b??esophagitis &??Farrell's esophagus, who was admitted to [facility] on 08/14/2022 (now on Hospital Day #23) [...] Hunt MD Attending, Hospital Medicine Service Pager #[phone] 09/17/2022 24 Hour Events: None Subjective: Doing [...] 168 hours. No results for input(s): PHART, DEX4WNV, PO2ART, HTS0ECV in the last 168 hours. Micro: No [...] IPI criteria and is awaiting rehabilitation or alf facility placement withactive referrals in process Alan Hunt MD * Nancy Ernst, HUGH - 09/17/2022 12:38 PM EDT Nutrition Progress Note Ishan rIving??is a 62 y.o.??female??with h/o bipolar, DM, EtOH, esophagitis, who presented to [facility] 3 days ago after being found unresponsive at home.?Patient found to have likely pneumonia+/- aspiration, newly reduced EF. Reason for Assessment: Tube Feeding, Follow-up Nutrition Recommendations: Suggest Cyclic Nutren 1.5 at 72 ml per hour plus 2 scoops of protein powder 14 hrs from 5442-4646 -pended At goal, this will provide: Nutren 1.5 Total Volume Per Day: 1012 mL Calories per Day: 1518 Protein per Day: 69 g Free Water mL per Day: 773 % RDI: 101 % Monitor hydration status on above TFs as they are concentrated. Pt may need additional fluids depending on IVFs, med flushes, p.o. Intake, etc. ?? Po diet per ELEVATOR EXAMINER (recs 09/04 NPO s/p MBS) ?? Continue [...] of this encounter: 64.4 kg (142 lb). [place] Body Weight (IBW) (kg): 45.45 Usual Body [...] up while inpatient Nancy Ernst RD Pager #:[phone] * Shirley Thibodeaux RN - 09/17/2022 3:42 AM EDT OUTCOME EVALUATION NOTE: OUTCOME SUMMARY: Pt is A/OX4, VSS on RA. Pt denies SOB,NVD, chest pain. 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 Assessment as documented (see [...] deficiency anemia,??GERD??c/b??esophagitis &??Farrell's esophagus??presenting in transfer from [facility], suspected to be in cardiogenic shock and [...] the current findings, Anticipated Discharge Disposition (PT): alf facility when medically ready for hospital discharge. [...] Billing Code: TE-F x 3 FEROZ PORTILLO CLINICAL SALES CONSULTANT Pager: [phone] Physical Therapy Inpatient Rehabilitation Department * Alan [...] anemia,??GERD??c/b??esophagitis &??Farrell's esophagus, who was admitted to [facility] on 08/14/2022 (now on Hospital Day #23) [...] Hunt MD Attending, Hospital Medicine Service Pager #[phone] 09/16/2022 24 Hour Events: None Subjective: Doing [...] 168 hours. No results for input(s): PHART, ORR8YVX, PO2ART, XSA0JYA in the last 168 hours. Micro: No [...] IPI criteria and is awaiting rehabilitation or alf facility placement withactive referrals in process Alan [...] deficiency anemia,??GERD??c/b??esophagitis &??Farrell's esophagus??presenting in transfer from [facility], suspected to be in cardiogenic shock and [...] 2-3 times/wk Total Minutes, Occupational Therapy: 24 (j9 [facility] [phone]) Pager: [phone] DANIELA Montes 09/16/2022 Occupational Therapy Rehabilitation Department * Jane Howe - 09/16/2022 9:54 AM EDTSumizzy: Clinical Notes Submitted to [place] [employer] Medicaid Program for Review 09/16/22 0954 Land Management Supervisor Care Medicaid Date Clinical Application Filed 09/16/22 State Application Filed in [place] Farideh Kirby RN [facility] from [place] [employer] Medicaid Program requested clinical notes for [facility]an [facility]. [employer] sent Ishan's most recent MDs, PT/OT/ELEVATOR EXAMINER, RNCM and nursing notes. Along with Ishan's [...] deficiency anemia,??GERD??c/b??esophagitis &??Farrell's esophagus??presenting in transfer from [facility], suspected to be in cardiogenic shock and [...] stable overnight blood sugars Elsie Erickson APRN [facility] Endocrinology Diabetes Management Pager [phone] * Briana Bryant, ELEVATOR EXAMINER - 09/15/2022 8:38 AM EDT Speech Therapy Note Patient Profile: Ishan Irving is a 62 year old female with a medical history notable for??recent L femoral neck fracture,??bipolar disorder, resolving medication-induced Parkinsonism, insulin-dependent diabetes mellitus,??hx of alcohol use disorder (reported to be in remission for 1.5 years) c/b chronic pancreatitis, iron deficiency anemia,??GERD??c/b??esophagitis &??Farrell's esophagus??presenting in transfer from [facility]??on 08/14/2022, suspected to be in cardiogenic shock and found to be in mixed shock with concern for stress cardiomyopathy.??ELEVATOR EXAMINER following for swallow, cognitive tx. MBS completed [...] Pt was seen today for a follow-up ELEVATOR EXAMINER visit. Oral and pharyngeal swallow function appear [...] after Excellent oral care Plan: Therapy Frequency (ELEVATOR EXAMINER Eval): Monitor while hospitalized Pt./family are in agreement with treatment plan. Total Minutes (Speech Language Pathology): 10 Briana Bryant MA, [facility]-ELEVATOR EXAMINER Pager: [phone] Speech-Language Pathology Inpatient Rehabilitation Medicine * Chau Keith MD - 09/15/2022 6:34 AM EDT Images from the original note were not included. Inpatient Hospital Medicine Progress Note 09/15/2022 Patient Name: ISHAN IRVING Date of : 1960 Age: 62 y.o. Hospital Admit Date: 08/14/2022 Hospital Day: 32 Inpatient Attending: Balaji Mayer MD PCP: Chris Stanley APRN ([phone]) ID: Ishan Irving is a 62 y.o. 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.5 years) c/b chronic pancreatitis, iron deficiency anemia, ??GERD??c/b??esophagitis &??Farrell's esophagus, who was admitted to [facility] on 08/14/2022 (now on Hospital Day #32) [...] fellows interpretation Confirmed by fellow Niurka Rose ([id number]) on 09/07/2022 8:45:34 AM Confirmed by MD ALEJANDRA, RICHARD ([id number]) on 09/07/2022 1:55:43 PM QTCCALC [id number] 09/07/2022 0635 Microbiology: No results found for: URINECULTURE Lab Results Component Value Date/Time BLOODCX No growth at 5 days. 08/19/2022 1720 BLOODCX No growth at 5 days. 08/19/2022 1330 Microbiology Results (Last 30 days) Procedure Component Value Units Date/Time Lower Respiratory Culture Bronchial Alveolar Lavage [[id number]] Collected: 08/21/22 1650 Lab Status: Final result Specimen: Bronchial Alveolar Lavage Updated: 08/23/22 0741 Lower Respiratory Culture Rare mixed bacterial morphotypes suggestive of normal upper respiratory wiley Gram Stain -- Few Neutrophils seen No squamous epithelial cells seen No microorganisms seen. Fungus Culture & Calc Stain Bronchial Alveolar Lavage [[id number]] (Abnormal) Collected: 08/21/221649 Lab Status: Preliminary result Specimen: Bronchial Alveolar Lavage Updated: 08/24/22 1452 AFB culture Bronchial Alveolar Lavage [[id number]] Collected: 08/21/221649 Lab Status: Preliminary result Specimen: Bronchial Alveolar Lavage Updated: 08/24/22 2219 Acid Fast Bacilli Culture -- No Acid Fast Bacilli isolated to date If active tuberculosis is suspected, the patient should be on [employer]. Call Infection Prevention for assistance if needed. Acid Fast Stain No Acid Fast Bacilli seen Fungus culture [[id number]] (Abnormal) Collected: 08/21/221649 Lab Status: Preliminary result Specimen: Bronchial Alveolar Lavage Updated: 08/24/22 145 Fungus Culture Rare Jacky albicans Calcofluor White Stain [[id number]] Collected: 08/21/221649 Lab Status: Final result Specimen: Bronchial Alveolar Lavage Updated: 08/21/222015 Calcofluor Stain Calcofluor White Preparation: Negative Lower Respiratory Culture Bronchial Alveolar Lavage [[id number]] Collected: 08/21/221644 Lab Status: Final result Specimen: Bronchial Alveolar Lavage Updated: 08/23/22 0741 Lower Respiratory Culture Rare mixed bacterial morphotypes suggestive of normal upper respiratory wiley Gram Stain -- Moderate Neutrophils seen No squamous epithelial cells seen No microorganisms seen. Fungus Culture & Calc Stain Bronchial Alveolar Lavage [[id number]] (Abnormal) Collected: 08/21/221644 Lab Status: Preliminary result Specimen: Bronchial Alveolar Lavage Updated: 08/24/22 1453 AFB culture Bronchial Alveolar Lavage [[id number]] Collected: 08/21/221644 Lab Status: Preliminary result Specimen: Bronchial Alveolar Lavage Updated: 08/24/22 2221 Acid Fast Bacilli Culture -- No Acid Fast Bacilli isolated to date If active tuberculosis is suspected, the patient should be on [employer]CA[employer]. Call Infection Prevention for assistance if needed. Acid Fast Stain No Acid Fast Bacilli seen Fungus culture [[id number]] (Abnormal) Collected: 08/21/221644 Lab Status: Preliminary result Specimen: Bronchial Alveolar Lavage Updated: 08/24/22 145 Fungus Culture Rare Jacky albicans Calcofluor White Stain [[id number]] Collected: 08/21/221644 Lab Status: Final result Specimen: Bronchial Alveolar Lavage Updated: 08/21/222016 Calcofluor Stain Calcofluor White Preparation: Negative Blood culture [[id number]] Collected: 08/19/22 1720 Lab Status: Final result Specimen: Blood Updated: 08/24/22 2301 Blood Culture No growth at 5 days. Lower Respiratory Culture Sputum Induced [[id number]] Collected: 08/19/22 1451 Lab Status: Final result Specimen: Sputum Induced Updated: 08/21/22 0948 Lower Respiratory Culture Rare mixed bacterial morphotypes suggestive of normal upper respiratory wiley Gram Stain -- Many Neutrophils seen Few squamous epithelial cells seen No microorganisms seen. Blood culture [[id number]] Collected: 08/19/22 1330 Lab Status: Final result Specimen: Blood Updated: 08/24/22 1501 Blood Culture No growth at 5 days. Legionella Urinary Antigen [[id number]] Collected: 08/18/22 1013 Lab Status: Final result [...] who have questions please contact the health infant childcare provider that requested your imaging first. Electronically signed by: Davi Terry MD, [facility] ([phone]), at 08/15/2022 3:53 AM XR Abdomen 1 [...] who have questions please contact the health infant childcare provider that requested your imaging first. Electronically signed by: Liliane Adams MD, [facility] ([phone]), at 08/15/2022 9:05 AM XR Chest One [...] who have questions please contact the health infant childcare provider that requested your imaging first. Electronically signed by: Davi Terry MD, [facility] ([phone]), at 08/15/2022 3:55 AM XR Abdomen 1 [...] who have questions please contact the health infant childcare provider that requested your imaging first. Electronically signed by: Davi Terry MD, [facility] ([phone]), at 08/15/2022 6:41 AM XR Chest One [...] who have questions please contact the health infant childcare provider that requested your imaging first. Electronically signed by: Alfonso Adams MD, [facility] ([phone]), at 08/16/2022 10:[address] Head wo [...] who have questions please contact the health infant childcare provider that requested your imaging first. Electronically signed by: Moustapha Correa MD, [facility] ([phone]), at 08/16/2022 11:19 PM XR Abdomen 1 [...] who have questions please contact the health infant childcare provider that requested your imaging first. Electronically signed by: Jenn Pina MD, [facility] ([phone]), at 08/17/2022 2:[address] Head wo Contrast (Generic) (Exam End: 08/18/2022 3:14 PM) Impression No acute intracranial process. Thank you for letting us participate in the care of this patient. If you are a health care provider and have any questions regarding this report, please contact the number below. For patients who have questions please contact the health infant childcare provider that requested your imaging first. Electronically signed by: Antonio Jordan MD, [facility] ([phone]), at 08/18/2022 3:18 PM XR Chest One [...] who have questions please contact the health infant childcare provider that requested your imaging first. Electronically signed by: Alan De Guzman MD, [facility] ([phone]), at 08/19/2022 3:14 PM MRI Brain wo Contrast (Exam End: 08/19/2022 10:15 PM) Impression No acute infarction, mass or mass effect. Thank you for letting us participate in the care of this patient. If you are a health care provider and have any questions regarding this report, please contact the number below. For patients who have questions please contact the health infant childcare provider that requested your imaging first. Electronically signed by: Jagdeep Lee MD, [facility] ([phone]), at 08/20/2022 3:34 AM XR Chest for [...] who have questions please contact the health infant childcare provider that requested your imaging first. Electronically signed by: Alan De Guzman MD, [facility] ([phone]), at 08/19/2022 4:[address] Hip w [...] who have questions please contact the health infant childcare provider that requested your imaging first. Electronically signed by: Aicha Chowdhury MD, [facility] ([phone]), at 08/21/2022 9:[address] Chest w [...] who have questions please contact the health infant childcare provider that requested your imaging first. Electronically signed by: Jagdeep Lee MD, [facility] ([phone]), at 08/21/2022 6:56 AM XR Hip 2-3 Views Left (Exam End: 08/22/2022 12:19 AM) Impression No radiographic evidence of infection. Thank you for letting us participate in the care of this patient. If you are a health care provider and have any questions regarding this report, please contact the number below. For patients who have questions please contact the health infant childcare provider that requested your imaging first. Electronically signed by: Viktor Cervantes MD, [facility] ([phone]), at 08/22/2022 12:43 PM XR Pelvis (Generic) (Exam End: 08/22/2022 12:19 AM) Impression No radiographic evidence of infection status post left hip ORIF. Thank you for letting us participate in the care of this patient. If you are a health care provider and have any questions regarding this report, please contact the number below. For patients who have questions please contact the health infant childcare provider that requested your imaging first. Electronically signed by: Richard Billings MD, [facility] ([phone]), at 08/22/2022 10:[address] Angiogram Coronary [...] who have questions please contact the health infant childcare provider that requested your imaging first. Electronically signed by: Arlette Mays MD, [facility] ([phone]), at 08/27/2022 11:[address] Chest wo Contrast (Generic) (Exam End: 08/27/2022 8:58 AM) Impression Stable findings of multifocal pneumonia. No interval abnormality. Thank you for letting us participate in the care of this patient. If you are a health care provider and have any questions regarding this report, please contact the number below. For patients who have questions please contact the health infant childcare provider that requested your imaging first. Electronically signed by: MINH QUIROGA MD, [facility] ([phone]), at 08/27/2022 10:48 AM XR Fluoro Barium [...] who have questions please contact the health infant childcare provider that requested your imaging first. Electronically signed by: Aron Billings MD, [facility] ([phone]), at 08/31/2022 12:02 PM XR Fluoro Barium [...] who have questions please contact the health infant childcare provider that requested your imaging first. Electronically signed by: Alfonso Adams MD, [facility] ([phone]), at 09/04/2022 10:57 AM XR Abdomen 1 [...] who have questions please contact the health infant childcare provider that requested your imaging first. Electronically signed by: Jagdeep Lee MD, [facility] ([phone]), at 09/04/2022 10:35 PM XR Chest One [...] who have questions please contact the health infant childcare provider that requested your imaging first. Electronically signed by: Jagdeep Lee MD, [facility] ([phone]), at 09/04/2022 10:35 PM XR Chest One View (Exam End: 09/05/2022 9:24 AM) Impression 1. Reposition enteric tube now extending below the diaphragm and included [id number]. 2. Similar appearance of elevated right hemidiaphragm and linear/patchy bibasilar opacities which may represent atelectasis or possibly aspiration. Thank you for letting us participate in the care of this patient. If you are a health care provider and have any questions regarding this report, please contact the number below. For patients who have questions please contact the health infant childcare provider that requested your imaging first. Electronically signed by: AUDI PERDOMO MD, [facility] ([phone]), at 09/05/2022 3:43 PM XR Abdomen 1 [...] who have questions please contact the health infant childcare provider that requested your imaging first. Electronically signed by: Camille Garcia MD, [facility] ([phone]), at 09/10/2022 1:16 AM Medications: Scheduled: ??? [...] RD??c/b??esophagitis &??Farrell's esophagus, who was admitted to [facility] on 08/14/2022 (now on Hospital Day #23) [...] her insurance that lacks rehab coverage requiring supervisor intermediates care medicaid. Her application has been submitted. [...] nightly - C/w valproate 300mg q6h - ELEVATOR EXAMINER following, NPO at present - Psychiatry Consult, [...] Medicine PGY1 Medicine Team: Jose Juan, Pager #[phone] Date: 09/15/2022 Associated attestation - Balaji Fraga [...] IPI criteria and is awaiting rehabilitation or alf facility placement with active referrals in process * Wilda Blankenship, RD - 09/14/2022 3:04 PM EDT Nutrition Progress Note Ishan Irving is a 62 y.o.??female??with h/o bipolar, DM, EtOH, esophagitis, who presented to [facility] 3 days ago after being found unresponsive at home.?Patient found to have likely pneumonia +/- aspiration, newly reduced EF. Reason for Assessment: Tube Feeding, Follow-up Nutrition Recommendations: Continue current Tube feeding Cyclic Peptamen AF at 90ml/hr for 14 hrs from 2271-2437 At goal, this will provide: Peptamen AF Total Volume Per Day: 1260 mL Scoops of Protein: 0 Calories per Day: 1512 Protein per Day: 96 g Free Water mL per Day: 1023 % RDI: 101 % Monitor hydration status on above TFs as they are concentrated. Pt may need additional fluids depending on IVFs, med flushes, p.o. Intake, etc. Po diet per ELEVATOR EXAMINER (recs 09/04 NPO s/p MBS) Continue 50,000 [...] encounter: 67.2 kg (148 lb 1.6 oz). [place] Body Weight (IBW) (kg): 45.45 Usual Body [...] while inpatient THANKS Wilda Blankenship RD Pager #:[phone] * Feroz Portillo, CLINICAL SALES CONSULTANT - 09/14/2022 2:05 PM EDT Physical Therapy [...] deficiency anemia,??GERD??c/b??esophagitis &??Farrell's esophagus??presenting in transfer from [facility], suspected to be in cardiogenic shock and [...] the current findings, Anticipated Discharge Disposition (PT): alf facility when medically ready for hospital discharge. [...] TE-F x 3 FEROZ PORTILLO PTA Pager: [phone] Physical Therapy Inpatient Rehabilitation Department * Alicia Gillis - 09/14/2022 10:46 AM EDT Application submitted via [place] Medicaid portal 09/14/2022 Any further documentation to be given to state upon request. * Chau Keith MD - 09/14/2022 6:06 AM EDT Images from the original note were not included. Inpatient Hospital Medicine Progress Note 09/14/2022 Patient Name: ISHAN IRVING Date of : 1960 Age: 62 y.o. Hospital Admit Date: 08/14/2022 Hospital Day: 31 Inpatient Attending: Chong Chao MD PCP: Chris Stanley APRN ([phone]) ID: Ishan Irving is a 62 y.o. 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.5 years) c/b chronic pancreatitis, iron deficiency anemia, ??GERD??c/b??esophagitis &??Farrell's esophagus, who was admitted to [facility] on [place]14/[place]22 (now on Hospital Day #31) [...] fellows interpretation Confirmed by fellow Niurka Rose ([id number]) on 09/07/2022 8:45:34 AM Confirmed by MD [...] Date/Time Lower Respiratory Culture Bronchial Alveolar Lavage [[id number]] Collected: 08/21/221649 Lab Status: Final result Specimen: Bronchial Alveolar Lavage Updated: 08/23/22 0741 Lower Respiratory Culture Rare mixed bacterial morphotypes suggestive of normal upper respiratory wiley Gram Stain -- Few Neutrophils seen No squamous epithelial cells seen No microorganisms seen. Fungus Culture & Calc Stain Bronchial Alveolar Lavage [[id number]] (Abnormal) Collected: 08/21/221649 Lab Status: Preliminary result Specimen: Bronchial Alveolar Lavage Updated: 08/24/22 1452 AFB culture Bronchial Alveolar Lavage [[id number]] Collected: 08/21/221649 Lab Status: Preliminary result Specimen: Bronchial Alveolar Lavage Updated: 08/24/22 2219 Acid Fast Bacilli Culture -- No Acid Fast Bacilli isolated to date If active tuberculosis is suspected, the patient should be on [employer] PRECAUTIONS. Call Infection Prevention for assistance if needed. Acid Fast Stain No Acid Fast Bacilli seen Fungus culture [[id number]] (Abnormal) Collected: 08/21/221649 Lab Status: Preliminary result Specimen: Bronchial Alveolar Lavage Updated: 08/24/22 145 Fungus Culture Rare Jacky albicans Calcofluor White Stain [[id number]] Collected: 08/21/221649 Lab Status: Final result Specimen: Bronchial Alveolar Lavage Updated: 08/21/22 2016 Calcofluor Stain Calcofluor White Preparation: Negative Lower Respiratory Culture Bronchial Alveolar Lavage [[id number]] Collected: 08/21/221644 Lab Status: Final result Specimen: Bronchial Alveolar Lavage Updated: 08/23/22 0741 Lower Respiratory Culture Rare mixed bacterial morphotypes suggestive of normal upper respiratory wiley Gram Stain -- Moderate Neutrophils seen No squamous epithelial cells seen No microorganisms seen. Fungus Culture & Calc Stain Bronchial Alveolar Lavage [[id number]] (Abnormal) Collected: 08/21/221644 Lab Status: Preliminary result Specimen: Bronchial Alveolar Lavage Updated: 08/24/22 1453 AFB culture Bronchial Alveolar Lavage [[id number]] Collected: 08/21/221644 Lab Status: Preliminary result Specimen: Bronchial Alveolar Lavage Updated: 08/24/22 2221 Acid Fast Bacilli Culture -- No Acid Fast Bacilli isolated to date If active tuberculosis is suspected, the patient should be on [employer] PRECAUTIONS. Call Infection Prevention for assistance if needed. Acid Fast Stain No Acid Fast Bacilli seen Fungus culture [[id number]] (Abnormal) Collected: 08/21/22 164 Lab Status: Preliminary result Specimen: Bronchial Alveolar Lavage Updated: 08/24/22 1453 Fungus Culture Rare Jacky albicans Calcofluor White Stain [[id number]] Collected: 08/21/22 164 Lab Status: Final result Specimen: Bronchial Alveolar Lavage Updated: 08/21/22 2017 Calcofluor Stain Calcofluor White Preparation: Negative Blood culture [[id number]] Collected: 08/19/22 1720 Lab Status: Final result Specimen: Blood Updated: 08/24/22 2301 Blood Culture No growth at 5 days. Lower Respiratory Culture Sputum Induced [[id number]] Collected: 08/19/22 1451 Lab Status: Final result Specimen: Sputum Induced Updated: 08/21/22 0948 Lower Respiratory Culture Rare mixed bacterial morphotypes suggestive of normal upper respiratory wiley Gram Stain -- Many Neutrophils seen Few squamous epithelial cells seen No microorganisms seen. Blood culture [[id number]] Collected: 08/19/22 1330 Lab Status: Final result Specimen: Blood Updated: 08/24/22 1501 Blood Culture No growth at 5 days. Legionella Urinary Antigen [[id number]] Collected: 08/18/22 1013 Lab Status: Final result [...] Catheter Urine; Other; sepsis, bacteria on UA [[id number]] Collected: 08/15/22 1225 Lab Status: Final result Specimen: Indwelling Catheter Urine Updated: 08/16/22 0804 Urine Culture 1,000-9,000 cfu/ml Insignificant growth COVID-19 PCR [[id number]] Collected: 08/15/22 1150 Lab Status: Final result [...] using the Simplexa COVID-19 Direct Assay by [employer] as authorized by the FDA issued Emergency [...] Department of Pathology and Laboratory Medicine at [facility], certified under the Clinical Laboratory Improvement Amendments [...] fact sheets at the following FDA website: https://www.fda.gov/medical-devices/wnwfvppxapt-ohusafd-9144-boldy-90-brzainzqc- vyf-rjfkedmynestgn-wuhiwzf-devices/qnwvr-wimunxwgnra-tndr SARS-CoV-2 Source MAINFRAME ARCHITECT Swab Lower Respiratory Culture Sputum Induced [[id number]] Collected: 04/08/23 0740 Lab Status: Final result [...] who have questions please contact the health infant childcare provider that requested your imaging first. Electronically signed by: Davi Terry MD, [facility] ([phone]), at 08/15/2022 3:53 AM XR Abdomen 1 [...] who have questions please contact the health infant childcare provider that requested your imaging first. Electronically signed by: Liliane Adams MD, [facility] ([phone]), at 08/15/2022 9:05 AM XR Chest One [...] who have questions please contact the health infant childcare provider that requested your imaging first. Abdomen 1 [...] who have questions please contact the health infant childcare provider that requested your imaging first. Electronically signed by: Davi Terry MD, [facility] ([phone]), at 08/15/2022 6:41 AM XR Chest One [...] who have questions please contact the health infant childcare provider that requested your imaging first. Electronically signed by: Alfonso Adams MD, [facility] ([phone]), at 08/16/2022 10:[address] Head wo [...] who have questions please contact the health infant childcare provider that requested your imaging first. Electronically signed by: Moustapha Correa MD, [facility] ([phone]), at 08/16/2022 11:19 PM XR Abdomen 1 [...] who have questions please contact the health infant childcare provider that requested your imaging first. Electronically signed by: Jenn Pina MD, [facility] ([phone]), at 08/17/2022 2:[address] Head wo Contrast (Generic) (Exam End: 08/18/2022 3:14 PM) Impression No acute intracranial process. Thank you for letting us participate in the care of this patient. If you are a health care provider and have any questions regarding this report, please contact the number below. For patients who have questions please contact the health infant childcare provider that requested your imaging first. Electronically signed by: Antonio Jordan MD, [facility] ([phone]), at 08/18/2022 3:18 PM XR Chest One [...] who have questions please contact the health infant childcare provider that requested your imaging first. Electronically signed by: Alan De Guzman MD, [facility] ([phone]), at 08/19/2022 3:14 PM MRI Brain wo Contrast (Exam End: 08/19/2022 10:15 PM) Impression No acute infarction, mass or mass effect. Thank you for letting us participate in the care of this patient. If you are a health care provider and have any questions regarding this report, please contact the number below. For patients who have questions please contact the health infant childcare provider that requested your imaging first. Electronically signed by: Jagdeep Lee MD, [facility] ([phone]), at 08/20/2022 3:34 AM XR Chest for [...] who have questions please contact the health infant childcare provider that requested your imaging first. Electronically signed by: Alan De Guzman MD, [facility] ([phone]), at 08/19/2022 4:[address] Hip w [...] who have questions please contact the health infant childcare provider that requested your imaging first. Electronically signed by: Aicha Chowdhury MD, [facility] ([phone]), at 08/21/2022 9:[address] Chest w [...] who have questions please contact the health infant childcare provider that requested your imaging first. Electronically signed by: Jagdeep Lee MD, [facility] ([phone]), at 08/21/2022 6:56 AM XR Hip 2-3 Views Left (Exam End: 08/22/2022 12:19 AM) Impression No radiographic evidence of infection. Thank you for letting us participate in the care of this patient. If you are a health care provider and have any questions regarding this report, please contact the number below. For patients who have questions please contact the health infant childcare provider that requested your imaging first. Electronically signed by: Viktor Cervantes MD, [facility] ([phone]), at 08/22/2022 12:43 PM XR Pelvis (Generic) (Exam End: 08/22/2022 12:19 AM) Impression No radiographic evidence of infection status post left hip ORIF. Thank you for letting us participate in the care of this patient. If you are a health care provider and have any questions regarding this report, please contact the number below. For patients who have questions please contact the health infant childcare provider that requested your imaging first. Electronically signed by: Richard Billings MD, [facility] ([phone]), at 08/22/2022 10:[address] Angiogram Coronary [...] who have questions please contact the health infant childcare provider that requested your imaging first. Electronically signed by: Arlette Mays MD, [facility] ([phone]), at 08/27/2022 11:[address] Chest wo Contrast (Generic) (Exam End: 08/27/2022 8:58 AM) Impression Stable findings of multifocal pneumonia. No interval abnormality. Thank you for letting us participate in the care of this patient. If you are a health care provider and have any questions regarding this report, please contact the number below. For patients who have questions please contact the health infant childcare provider that requested your imaging first. Electronically signed by: MINH QUIROGA MD, [facility] ([phone]), at 08/27/2022 10:48 AM XR Fluoro Barium [...] who have questions please contact the health infant childcare provider that requested your imaging first. Electronically signed by: Aron Billings MD, [facility] ([phone]), at 08/31/2022 12:02 PM XR Fluoro Barium [...] who have questions please contact the health infant childcare provider that requested your imaging first. Electronically signed by: Alfonso Adams MD, [facility] ([phone]), at 09/04/2022 10:57 AM XR Abdomen 1 [...] who have questions please contact the health infant childcare provider that requested your imaging first. Electronically signed by: Jagdeep Lee MD, [facility] ([phone]), at 09/04/2022 10:35 PM XR Chest One [...] who have questions please contact the health infant childcare provider that requested your imaging first. Electronically signed by: Jagdeep Lee MD, [facility] ([phone]), at 09/04/2022 10:35 PM XR Chest One View (Exam End: 09/05/2022 9:24 AM) Impression 1. Reposition enteric tube now extending below the diaphragm and included [id number]. 2. Similar appearance of elevated right hemidiaphragm and linear/patchy bibasilar opacities which may represent atelectasis or possibly aspiration. Thank you for letting us participate in the care of this patient. If you are a health care provider and have any questions regarding this report, please contact the number below. For patients who have questions please contact the health infant childcare provider that requested your imaging first. Electronically signed by: AUDI PERDOMO MD, [facility] ([phone]), at 09/05/2022 3:43 PM XR Abdomen 1 [...] who have questions please contact the health infant childcare provider that requested your imaging first. Electronically signed by: Camille Garcia MD, [facility] ([phone]), at 09/10/2022 1:16 AM Medications: Scheduled: ??? [...] RD??c/b??esophagitis &??Farrell's esophagus, who was admitted to [facility] on 08/14/2022 (now on Hospital Day #23) [...] her insurance that lacks rehab coverage requiring supervisor intermediates care medicaid. Her application has been submitted. [...] nightly - C/w valproate 300mg q6h - ELEVATOR EXAMINER following, NPO at present - Psychiatry Consult, [...] Medicine PGY1 Medicine Team: Jose Juan, Pager #[phone] Date: 09/14/2022 Associated attestation - Balaji Fraga [...] IPI criteria and is awaiting rehabilitation or alf facility placement with active referrals in process * Chau Keith MD - 09/13/2022 6:09 AM EDT Images from the original note were not included. Inpatient Hospital Medicine Progress Note 09/13/2022 Patient Name: ISHAN IRVING Date of : 1960 Age: 62 y.o. Hospital Admit Date: 08/14/2022 Hospital Day: 30 Inpatient Attending: Chong Chao MD PCP: Chris Stanley APRN ([phone]) ID: Ishan Irving is a 62 y.o. 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.5 years) c/b chronic pancreatitis, iron deficiency anemia, ??GERD??c/b??esophagitis &??Farrell's esophagus, who was admitted to [facility] on 08/14/2022 (now on Hospital Day #30) [...] fellows interpretation Confirmed by fellow Niurka Rose ([id number]) on 09/07/2022 8:45:34 AM Confirmed by MD [...] Date/Time Lower Respiratory Culture Bronchial Alveolar Lavage [[id number]] Collected: 08/21/221649 Lab Status: Final result Specimen: Bronchial Alveolar Lavage Updated: 08/23/22740 Lower Respiratory Culture Rare mixed bacterial morphotypes suggestive of normal upper respiratory wiley Gram Stain -- Few Neutrophils seen No squamous epithelial cells seen No microorganisms seen. Fungus Culture & Calc Stain Bronchial Alveolar Lavage [[id number]] (Abnormal) Collected: 08/21/221649 Lab Status: Preliminary result Specimen: Bronchial Alveolar Lavage Updated: 08/24/22 145 AFB culture Bronchial Alveolar Lavage [[id number]] Collected: 08/21/221649 Lab Status: Preliminary result Specimen: Bronchial Alveolar Lavage Updated: 08/24/22 221 Acid Fast Bacilli Culture -- No Acid Fast Bacilli isolated to date If active tuberculosis is suspected, the patient should be on [employer] PRECAUTIONS. Call Infection Prevention for assistance if needed. Acid Fast Stain No Acid Fast Bacilli seen Fungus culture [[id number]] (Abnormal) Collected: 08/21/221649 Lab Status: Preliminary result Specimen: Bronchial Alveolar Lavage Updated: 08/24/22 145 Fungus Culture Rare Jacky albicans Calcofluor White Stain [[id number]] Collected: 08/21/221649 Lab Status: Final result Specimen: Bronchial Alveolar Lavage Updated: 08/21/222015 Calcofluor Stain Calcofluor White Preparation: Negative Lower Respiratory Culture Bronchial Alveolar Lavage [[id number]] Collected: 08/21/221644 Lab Status: Final result Specimen: Bronchial Alveolar Lavage Updated: 04/16/23 0741 Lower Respiratory Culture Rare mixed bacterial morphotypes suggestive of normal upper respiratory wiley Gram Stain -- Moderate Neutrophils seen No squamous epithelial cells seen No microorganisms seen. Fungus Culture & Calc Stain Bronchial Alveolar Lavage [[id number]] (Abnormal) Collected: 08/21/221644 Lab Status: Preliminary result Specimen: Bronchial Alveolar Lavage Updated: 08/24/22 1453 AFB culture Bronchial Alveolar Lavage [[id number]] Collected: 08/21/221644 Lab Status: Preliminary result Specimen: Bronchial Alveolar Lavage Updated: 08/24/22 222 Acid Fast Bacilli Culture -- No Acid Fast Bacilli isolated to date If active tuberculosis is suspected, the patient should be on [employer] PRECAUTIONS. Call Infection Prevention for assistance if needed. Acid Fast Stain No Acid Fast Bacilli seen Fungus culture [[id number]] (Abnormal) Collected: 08/21/221644 Lab Status: Preliminary result Specimen: Bronchial Alveolar Lavage Updated: 08/24/22 145 Fungus Culture Rare Jacky albicans Calcofluor White Stain [[id number]] Collected: 08/21/221644 Lab Status: Final result Specimen: Bronchial Alveolar Lavage Updated: 08/21/22 2017 Calcofluor Stain Calcofluor White Preparation: Negative Blood culture [[id number]] Collected: 08/19/22 1720 Lab Status: Final result Specimen: Blood Updated: 08/24/22 2301 Blood Culture No growth at 5 days. Lower Respiratory Culture Sputum Induced [[id number]] Collected: 08/19/22 1451 Lab Status: Final result Specimen: Sputum Induced Updated: 08/21/22 0948 Lower Respiratory Culture Rare mixed bacterial morphotypes suggestive of normal upper respiratory wiley Gram Stain -- Many Neutrophils seen Few squamous epithelial cells seen No microorganisms seen. Blood culture [[id number]] Collected: 08/19/22 1330 Lab Status: Final result Specimen: Blood Updated: 08/24/22 1501 Blood Culture No growth at 5 days. Legionella Urinary Antigen [[id number]] Collected: 08/18/22 1013 Lab Status: Final result [...] Catheter Urine; Other; sepsis, bacteria on UA [[id number]] Collected: 08/15/22 1225 Lab Status: Final result Specimen: Indwelling Catheter Urine Updated: 08/16/22 0804 Urine Culture 1,000-9,000 cfu/ml Insignificant growth COVID-19 PCR [[id number]] Collected: 08/15/22 1150 Lab Status: Final result [...] using the Simplexa COVID-19 Direct Assay by [employer] as authorized by the FDA issued Emergency [...] Department of Pathology and Laboratory Medicine at [facility], certified under the Clinical Laboratory Improvement Amendments [...] fact sheets at the following FDA website: https://www.fda.gov/medical-devices/fndyqhmoepe-brnjjgv-8798-rdhhn-29-yropkxcqz- aqd-ilqmujkbefgvqj-fkypesh-devices/ldjlq-tqhptwfzfrs-nzoa SARS-CoV-2 Source MAINFRAME ARCHITECT Swab Lower Respiratory Culture Sputum Induced [[id number]] Collected: 08/15/22 0740 Lab Status: Final result Specimen: Sputum Induced Updated: 08/17/22 1015 Lower Respiratory Culture Rare normal upper respiratory wiley Gram Stain -- Many Neutrophils Few squamous epithelial cells Rare mixed bacterial morphotypes suggestive of normal upper respiratory wiley Blood culture [[id number]] Collected: 08/15/22 0110 Lab Status: Final result Specimen: Blood Updated: 08/20/22 0701 Blood Culture No growth at 5 days. MRSA PCR Screen ([facility]P/APD/NLH) [[id number]] Collected: 08/15/22 0050 Lab Status: Final result Specimen: Nasopharyngeal Swab Updated: 08/17/22 1419 MRSA Result Negative MRSA Interp -- Methicillin-resistant Staphylococcus aureus (MRSA) is NOT DETECTED The MRSA target DNA sequences (mec and SCC) were not detected within the acceptable ranges using the Xpert MRSA NxG on the GeneXpert Dx System ([employer]). This suggests the absence of MRSA in the patient specimen submitted for testing. This test is cleared by the U.S. Food and Drug Administration for clinical use and its performance characteristics have been verified by the [facility] at [facility]. This result does not rule out the presence of any other organisms. Rare false negative results may occur if MRSA is present at low concentrations with much higher concentrations of other organisms including MRSE or S. aureus with an empty SCC cassette. Comment: [VERIFIED DATE]08.17.22 Verified By:Shannon Smiley (Electronic Signature) Blood culture [[id number]] Collected: 08/14/22 9427 Lab Status: Final result Specimen: Blood Updated: [...] who have questions please contact the health infant childcare provider that requested your imaging first. Electronically signed by: Davi Terry MD, [facility] ([phone]), at 08/15/2022 3:53 AM XR Abdomen 1 [...] who have questions please contact the health infant childcare provider that requested your imaging first. Electronically signed by: Liliane Adams MD, [facility] ([phone]), at 08/15/2022 9:05 AM XR Chest One [...] who have questions please contact the health infant childcare provider that requested your imaging first. Electronically signed by: Davi Terry MD, [facility] ([phone]), at 08/15/2022 3:55 AM XR Abdomen 1 [...] who have questions please contact the health infant childcare provider that requested your imaging first. Electronically signed by: Davi Terry MD, [facility] ([phone]), at 08/15/2022 6:41 AM XR Chest One [...] who have questions please contact the health infant childcare provider that requested your imaging first. Electronically signed by: Alfonso Adams MD, [facility] ([phone]), at 08/16/2022 10:[address] Head wo [...] who have questions please contact the health infant childcare provider that requested your imaging first. Electronically signed by: Moustapha Correa MD, [facility] ([phone]), at 08/16/2022 11:19 PM XR Abdomen 1 [...] who have questions please contact the health infant childcare provider that requested your imaging first. Electronically signed by: Jenn Pina MD, [facility] ([phone]), at 08/17/2022 2:[address] Head wo Contrast (Generic) (Exam End: 08/18/2022 3:14 PM) Impression No acute intracranial process. Thank you for letting us participate in the care of this patient. If you are a health care provider and have any questions regarding this report, please contact the number below. For patients who have questions please contact the health infant childcare provider that requested your imaging first. Electronically signed by: Antonio Jordan MD, [facility] ([phone]), at 08/18/2022 3:18 PM XR Chest One [...] who have questions please contact the health infant childcare provider that requested your imaging first. Electronically signed by: Alan De Guzman MD, [facility] ([phone]), at 08/19/2022 3:14 PM MRI Brain wo Contrast (Exam End: 08/19/2022 10:15 PM) Impression No acute infarction, mass or mass effect. Thank you for letting us participate in the care of this patient. If you are a health care provider and have any questions regarding this report, please contact the number below. For patients who have questions please contact the health infant childcare provider that requested your imaging first. Electronically signed by: Jagdeep Lee MD, [facility] ([phone]), at 08/20/2022 3:34 AM XR Chest for [...] who have questions please contact the health infant childcare provider that requested your imaging first. Electronically signed by: Alan De Guzman MD, [facility] ([phone]), at 08/19/2022 4:[address] Hip w [...] who have questions please contact the health infant childcare provider that requested your imaging first. Electronically signed by: Aicha Chowdhury MD, [facility] ([phone]), at 08/21/2022 9:[address] Chest w [...] who have questions please contact the health infant childcare provider that requested your imaging first. Electronically signed by: Jagdeep Lee MD, [facility] ([phone]), at 08/21/2022 6:56 AM XR Hip 2-3 Views Left (Exam End: 08/22/2022 12:19 AM) Impression No radiographic evidence of infection. Thank you for letting us participate in the care of this patient. If you are a health care provider and have any questions regarding this report, please contact the number below. For patients who have questions please contact the health infant childcare provider that requested your imaging first. Electronically signed by: Viktor Cervantes MD, [facility] ([phone]), at 08/22/2022 12:43 PM XR Pelvis (Generic) (Exam End: 08/22/2022 12:19 AM) Impression No radiographic evidence of infection status post left hip ORIF. Thank you for letting us participate in the care of this patient. If you are a health care provider and have any questions regarding this report, please contact the number below. For patients who have questions please contact the health infant childcare provider that requested your imaging first. Electronically signed by: Richard Billings MD, [facility] ([phone]), at 08/22/2022 10:[address] Angiogram Coronary [...] who have questions please contact the health infant childcare provider that requested your imaging first. Electronically signed by: Arlette Mays MD, [facility] ([phone]), at 08/27/2022 11:[address] Chest wo Contrast (Generic) (Exam End: 08/27/2022 8:58 AM) Impression Stable findings of multifocal pneumonia. No interval abnormality. Thank you for letting us participate in the care of this patient. If you are a health care provider and have any questions regarding this report, please contact the number below. For patients who have questions please contact the health infant childcare provider that requested your imaging first. Electronically signed by: MINH QUIROGA MD, [facility] ([phone]), at 08/27/2022 10:48 AM XR Fluoro Barium [...] who have questions please contact the health infant childcare provider that requested your imaging first. Fluoro Barium Swallow (Modified/Video Swallow Pharynx) (Exam [...] who have questions please contact the health infant childcare provider that requested your imaging first. Electronically signed by: Alfonso Adams MD, [facility] ([phone]), at 09/04/2022 10:57 AM XR Abdomen 1 [...] who have questions please contact the health infant childcare provider that requested your imaging first. Electronically signed by: Jagdeep Lee MD, [facility] ([phone]), at 09/04/2022 10:35 PM XR Chest One [...] who have questions please contact the health infant childcare provider that requested your imaging first. Electronically signed by: Jagdeep Lee MD, [facility] ([phone]), at 09/04/2022 10:35 PM XR Chest One View (Exam End: 09/05/2022 9:24 AM) Impression 1. Reposition enteric tube now extending below the diaphragm and included [id number]-uf-uift. 2. Similar appearance of elevated right hemidiaphragm and linear/patchy bibasilar opacities which may represent atelectasis or possibly aspiration. Thank you for letting us participate in the care of this patient. If you are a health care provider and have any questions regarding this report, please contact the number below. For patients who have questions please contact the health infant childcare provider that requested your imaging first. Electronically signed by: AUDI PERDOMO MD, [facility] ([phone]), at 09/05/2022 3:43 PM XR Abdomen 1 [...] who have questions please contact the health infant childcare provider that requested your imaging first. Electronically signed by: Camille Garcia MD, [facility] ([phone]), at 09/10/2022 1:16 AM Medications: Scheduled: ??? [...] RD??c/b??esophagitis &??Farrell's esophagus, who was admitted to [facility] on 08/14/2022 (now on Hospital Day #23) [...] her insurance that lacks rehab coverage requiring supervisor intermediates care medicaid. Her application has been submitted. [...] nightly - C/w valproate 300mg q6h - ELEVATOR EXAMINER following, NPO at present - Psychiatry Consult, [...] Medicine PGY1 Medicine Team: Jose Juan, Pager #[phone] Date: 09/13/2022 Associated attestation - Chong Chao [...] will sign off at this time. Page [phone] with questions/concerns Rayray Platt DO * Jigar Streeter MD - 09/12/2022 7:29 AM EDT Images from the original note were not included. Inpatient Hospital Medicine Progress Note 09/12/2022 Patient Name: ISHAN IRVNIG Date of : 1960 Age: 62 y.o. Hospital Admit Date: 08/14/2022 Hospital Day: 29 Inpatient Attending: Molina Flores MD PCP: Chris Stanley APRN ([phone]) ID: Ishan Irving is a 62 y.o. 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.5 years) c/b chronic pancreatitis, iron deficiency anemia, ??GERD??c/b??esophagitis &??Farrell's esophagus, who was admitted to [facility] on 08/14/2022 (now on Hospital Day #29) [...] fellows interpretation Confirmed by fellow Niurka Rose ([id number]) on 09/07/2022 8:45:34 AM Confirmed by MD [...] Date/Time Lower Respiratory Culture Bronchial Alveolar Lavage [[id number]] Collected: 08/21/22 1650 Lab Status: Final result Specimen: Bronchial Alveolar Lavage Updated: 08/23/22 0741 Lower Respiratory Culture Rare mixed bacterial morphotypes suggestive of normal upper respiratory wiley Gram Stain -- Few Neutrophils seen No squamous epithelial cells seen No microorganisms seen. Fungus Culture & Calc Stain Bronchial Alveolar Lavage [[id number]] (Abnormal) Collected: 08/21/221649 Lab Status: Preliminary result Specimen: Bronchial Alveolar Lavage Updated: 08/24/22 1452 AFB culture Bronchial Alveolar Lavage [[id number]] Collected: 08/21/221649 Lab Status: Preliminary result Specimen: Bronchial Alveolar Lavage Updated: 08/24/22 221 Acid Fast Bacilli Culture -- No Acid Fast Bacilli isolated to date If active tuberculosis is suspected, the patient should be on [employer] PRECA[employer]IONS. Call Infection Prevention for assistance if needed. Acid Fast Stain No Acid Fast Bacilli seen Fungus culture [[id number]] (Abnormal) Collected: 08/21/221649 Lab Status: Preliminary result Specimen: Bronchial Alveolar Lavage Updated: 08/24/22 145 Fungus Culture Rare Jacky albicans Calcofluor White Stain [[id number]] Collected: 08/21/221649 Lab Status: Final result Specimen: Bronchial Alveolar Lavage Updated: 08/21/222015 Calcofluor Stain Calcofluor White Preparation: Negative Lower Respiratory Culture Bronchial Alveolar Lavage [[id number]] Collected: 08/21/221644 Lab Status: Final result Specimen: Bronchial Alveolar Lavage Updated: 08/23/22 0741 Lower Respiratory Culture Rare mixed bacterial morphotypes suggestive of normal upper respiratory wiley Gram Stain -- Moderate Neutrophils seen No squamous epithelial cells seen No microorganisms seen. Fungus Culture & Calc Stain Bronchial Alveolar Lavage [[id number]] (Abnormal) Collected: 08/21/221644 Lab Status: Preliminary result Specimen: Bronchial Alveolar Lavage Updated: 08/24/22 1453 AFB culture Bronchial Alveolar Lavage [[id number]] Collected: 08/21/221644 Lab Status: Preliminary result Specimen: Bronchial Alveolar Lavage Updated: 08/24/22 222 Acid Fast Bacilli Culture -- No Acid Fast Bacilli isolated to date If active tuberculosis is suspected, the patient should be on [employer]CA[employer]IONS. Call Infection Prevention for assistance if needed. Acid Fast Stain No Acid Fast Bacilli seen Fungus culture [[id number]] (Abnormal) Collected: 08/21/221644 Lab Status: Preliminary result Specimen: Bronchial Alveolar Lavage Updated: 04/17/23 1453 Fungus Culture Rare Jacky albicans Calcofluor White Stain [[id number]] Collected: 08/21/22 1645 Lab Status: Final result Specimen: Bronchial Alveolar Lavage Updated: 08/21/22 2017 Calcofluor Stain Calcofluor White Preparation: Negative Blood culture [[id number]] Collected: 08/19/22 1720 Lab Status: Final result Specimen: Blood Updated: 08/24/22 2301 Blood Culture No growth at 5 days. Lower Respiratory Culture Sputum Induced [[id number]] Collected: 08/19/22 1451 Lab Status: Final result Specimen: Sputum Induced Updated: 08/21/22 0948 Lower Respiratory Culture Rare mixed bacterial morphotypes suggestive of normal upper respiratory wiley Gram Stain -- Many Neutrophils seen Few squamous epithelial cells seen No microorganisms seen. Blood culture [[id number]] Collected: 08/19/22 1330 Lab Status: Final result Specimen: Blood Updated: 08/24/22 1501 Blood Culture No growth at 5 days. Legionella Urinary Antigen [[id number]] Collected: 08/18/22 1013 Lab Status: Final result [...] Catheter Urine; Other; sepsis, bacteria on UA [[id number]] Collected: 08/15/22 1225 Lab Status: Final result Specimen: Indwelling Catheter Urine Updated: 08/16/22 0804 Urine Culture 1,000-9,000 cfu/ml Insignificant growth COVID-19 PCR [[id number]] Collected: 08/15/22 1150 Lab Status: Final result [...] diagnosis of COVID-19 is performed using the [employer] COVID-19 Direct Assay by [employer] as authorized by the FDA issued Emergency [...] Department of Pathology and Laboratory Medicine at [facility], certified under the Clinical Laboratory Improvement Amendments [...] fact sheets at the following FDA website: https://www.fda.gov/medical-devices/upwurkqtawd-hfgmxzg-0135-gmkbe-17-jvzjlioco- pms-lyyudgohgqnljp-rwyctcs-devices/jryas-zrmbrqcvpbq-onbw SARS-CoV-2 Source MAINFRAME ARCHITECT Swab Lower Respiratory Culture Sputum Induced [[id number]] Collected: 08/15/22 0740 Lab Status: Final result Specimen: Sputum Induced Updated: 08/17/22 1015 Lower Respiratory Culture Rare normal upper respiratory wiley Gram Stain -- Many Neutrophils Few squamous epithelial cells Rare mixed bacterial morphotypes suggestive of normal upper respiratory wiley Blood culture [[id number]] Collected: 08/15/22 0110 Lab Status: Final result Specimen: Blood Updated: 08/20/22 0701 Blood Culture No growth at 5 days. MRSA PCR Screen ([facility]/CGP/APD/NLH) [[id number]] Collected: 08/15/22 0050 Lab Status: Final result Specimen: Nasopharyngeal Swab Updated: 08/17/22 1419 MRSA Result Negative MRSA Interp -- Methicillin-resistant Staphylococcus aureus (MRSA) is NOT DETECTED The MRSA target DNA sequences (mec and SCC) were not detected within the acceptable ranges using the Xpert MRSA NxG on the GeneXpert Dx System (Unfold). This suggests the absence of MRSA in the patient specimen submitted for testing. This test is cleared by the U.S. Food and Drug Administration for clinical use and its performance characteristics have been verified by the [facility] at [facility]. This result does not rule out the presence of any other organisms. Rare false negative results may occur if MRSA is present at low concentrations with much higher concentrations of other organisms including MRSE or S. aureus with an empty SCC cassette. Comment: [VERIFIED DATE]08.17.22 Verified By:Shannon Smiley (Electronic Signature) Blood culture [[id number]] Collected: 08/14/22 2355 Lab Status: Final result [...] who have questions please contact the health infant childcare provider that requested your imaging first. Electronically signed by: Davi Terry MD, [facility] ([phone]), at 08/15/2022 3:53 AM XR Abdomen 1 [...] who have questions please contact the health infant childcare provider that requested your imaging first. Electronically signed by: Liliane Adams MD, [facility] ([phone]), at 08/15/2022 9:05 AM XR Chest One [...] who have questions please contact the health infant childcare provider that requested your imaging first. Electronically signed by: Davi Terry MD, [facility] ([phone]), at 08/15/2022 3:55 AM XR Abdomen 1 [...] who have questions please contact the health infant childcare provider that requested your imaging first. Electronically signed by: Davi Terry MD, [facility] ([phone]), at 08/15/2022 6:41 AM XR Chest One [...] who have questions please contact the health infant childcare provider that requested your imaging first. Electronically signed by: Alfonso Adams MD, [facility] ([phone]), at 08/16/2022 10:[address] Head wo [...] who have questions please contact the health infant childcare provider that requested your imaging first. Electronically signed by: Moustapha Correa MD, [facility] ([phone]), at 08/16/2022 11:19 PM XR Abdomen 1 [...] who have questions please contact the health infant childcare provider that requested your imaging first. Electronically signed by: Jenn Pina MD, [facility] ([phone]), at 08/17/2022 2:[address] Head wo Contrast (Generic) (Exam End: 08/18/2022 3:14 PM) Impression No acute intracranial process. Thank you for letting us participate in the care of this patient. If you are a health care provider and have any questions regarding this report, please contact the number below. For patients who have questions please contact the health infant childcare provider that requested your imaging first. Electronically signed by: Antonio Jordan MD, [facility] ([phone]), at 08/18/2022 3:18 PM XR Chest One [...] who have questions please contact the health infant childcare provider that requested your imaging first. Electronically signed by: Alan De Guzman MD, [facility] ([phone]), at 08/19/2022 3:14 PM MRI Brain wo Contrast (Exam End: 08/19/2022 10:15 PM) Impression No acute infarction, mass or mass effect. Thank you for letting us participate in the care of this patient. If you are a health care provider and have any questions regarding this report, please contact the number below. For patients who have questions please contact the health infant childcare provider that requested your imaging first. Electronically signed by: Jagdeep Lee MD, [facility] ([phone]), at 08/20/2022 3:34 AM XR Chest for [...] who have questions please contact the health infant childcare provider that requested your imaging first. Electronically signed by: Alan De Guzman MD, [facility] ([phone]), at 08/19/2022 4:[address] Hip w [...] who have questions please contact the health infant childcare provider that requested your imaging first. Electronically signed by: Aicha Chowdhury MD, [facility] ([phone]), at 08/21/2022 9:[address] Chest w [...] who have questions please contact the health infant childcare provider that requested your imaging first. Electronically signed by: Jagdeep Lee MD, [facility] ([phone]), at 08/21/2022 6:56 AM XR Hip 2-3 Views Left (Exam End: 08/22/2022 12:19 AM) Impression No radiographic evidence of infection. Thank you for letting us participate in the care of this patient. If you are a health care provider and have any questions regarding this report, please contact the number below. For patients who have questions please contact the health infant childcare provider that requested your imaging first. Electronically signed by: Viktor Cervantes MD, [facility] ([phone]), at 08/22/2022 12:43 PM XR Pelvis (Generic) (Exam End: 08/22/2022 12:19 AM) Impression No radiographic evidence of infection status post left hip ORIF. Thank you for letting us participate in the care of this patient. If you are a health care provider and have any questions regarding this report, please contact the number below. For patients who have questions please contact the health infant childcare provider that requested your imaging first. Electronically signed by: Richard Billings MD, [facility] ([phone]), at 08/22/2022 10:[address] Angiogram Coronary [...] who have questions please contact the health infant childcare provider that requested your imaging first. Electronically signed by: Arlette Mays MD, [facility] ([phone]), at 08/27/2022 11:[address] Chest wo Contrast (Generic) (Exam End: 08/27/2022 8:58 AM) Impression Stable findings of multifocal pneumonia. No interval abnormality. Thank you for letting us participate in the care of this patient. If you are a health care provider and have any questions regarding this report, please contact the number below. For patients who have questions please contact the health infant childcare provider that requested your imaging first. Electronically signed by: MINH QUIROGA MD, [facility] ([phone]), at 08/27/2022 10:48 AM XR Fluoro Barium [...] who have questions please contact the health infant childcare provider that requested your imaging first. Electronically signed by: Aron Billings MD, [facility] ([phone]), at 08/31/2022 12:02 PM XR Fluoro Barium [...] who have questions please contact the health infant childcare provider that requested your imaging first. Electronically signed by: Alfonso Adams MD, [facility] ([phone]), at 09/04/2022 10:57 AM XR Abdomen 1 [...] who have questions please contact the health infant childcare provider that requested your imaging first. Electronically signed by: Jagdeep Lee MD, [facility] ([phone]), at 09/04/2022 10:35 PM XR Chest One [...] who have questions please contact the health infant childcare provider that requested your imaging first. Electronically signed by: Jagdeep Lee MD, [facility] ([phone]), at 09/04/2022 10:35 PM XR Chest One View (Exam End: 09/05/2022 9:24 AM) Impression 1. Reposition enteric tube now extending below the diaphragm and included ctpko-ej-yzhf. 2. Similar appearance of elevated right hemidiaphragm and linear/patchy bibasilar opacities which may represent atelectasis or possibly aspiration. Thank you for letting us participate in the care of this patient. If you are a health care provider and have any questions regarding this report, please contact the number below. For patients who have questions please contact the health infant childcare provider that requested your imaging first. Electronically signed by: AUDI PERDOMO MD, [facility] ([phone]), at 09/05/2022 3:43 PM XR Abdomen 1 [...] who have questions please contact the health infant childcare provider that requested your imaging first. Electronically signed by: Camille Garcia MD, [facility] ([phone]), at 09/10/2022 1:16 AM Medications: Scheduled: ??? [...] RD??c/b??esophagitis &??Farrell's esophagus, who was admitted to [facility] on 08/14/2022 (now on Hospital Day #23) [...] her insurance that lacks rehab coverage requiring senior care care medicaid. Her application has been submitted. Today's plan: - restart tube feeds via G tube - transition medications to G tube - adjust insulin regimen as appropriate and monitor for refeeding syndrome # Bipolar Disorder - Continue Seroquel 100mg nightly - C/w valproate 300mg q6h - ELEVATOR EXAMINER following, NPO at present - Psychiatry Consult, [...] Medicine PGY2 Medicine Team: Jose Juan, Pager #[phone] Date: 09/12/2022 Associated attestation - Chong Chao [...] bipolar, DM, EtOH, esophagitis, who presented to [facility] 3 days ago after being found unresponsive at home.?Patient found to have likely pneumonia+/- aspiration, newly reduced EF. Reason for intervention: Follow up Nutrition Recommendations: ?? S/p PEG placement, resume current TF: Cyclic Peptamen AF??at 90ml/hr for 14 hrs from [id number] (pended). At goal, this will provide: Peptamen [...] p.o. Intake, etc. ?? Po diet per ELEVATOR EXAMINER (recs 09/04 NPO s/p MBS) ?? Continue 50,000 units vitamin D weekly; 1000 mcg folic acid and 100 mg thiamine daily. ?? Off unit in IR for PEG placement at time of my visit. THANKS Wilda Blankenship RD Pager #:[phone] * Mary Penny RN - 09/11/2022 1:35 PM EDT Called to see Ishan Johanny Irving who is a 62 y.o., female by nursing complaint evaluation supervisor RM at the requestof charge nurse on unit. Referring provider: Chau Keith MD Date of Referral: 09/10 (unable to get done 09/10 therefore done 09/11) for a small bore insertion team consult. Admission Date/Time: 08/14/22 Hospital Day:28 Admitting Diagnosis:shock, multifocal pneumonia, and a newly reduced LVEF. Ordering Physician: Chau Keith MD Indication:Tube feeding, emergency medicine physician assistant Weighted or Not Weighted: weighted Ordered destination: [...] Gillis T - 09/11/2022 11:10 AM EDTSjasviry: Skilled Nursing Care Medicaid [place] Skilled Nursing Care application (Form 202LTC) completed on 09/11/2022 Authorized Double End Trimmer Form (Form 139REP) completed and designated to Antonio Irving and Alicia Gillis Copy made of all application documents. Statement of Understand for Choices for Care Land Management Supervisor Medicaid provided to patient/family. Submitted all documents to [place] DCF/ESD Application and Document Processing Center via [place]'s [employer] U[employer] on 09/11/2022 for submission and processing. Anticipated Timeline: ??? LTC application should be acknowledged by [place]'s Department of [place] Health Access and Disabilities, Aging and Independent Living ([facility]) within 1-10 business days dependent on method of the application's submission. ??? Then, the [facility] outbound call center representative aka [facility] RN assigned will contact [facility] to request clinicaldocumentation to submit to them for the clinical assessment they will complete. ??? The results from the clinical assessment by the [facility] RN assigned will be forwarded to the [facility] Financial Western Philosophy Professor (FBS) assigned to conduct the application intake process with date & time for the mandatory Phone Eligibility Interview. ??? Next, the FBS will conduct the intake interview with the applicant or applicant's Authorized Double End Trimmer and generate a list of proofs or verifications required for [facility] to move through the application process [...] applicant's application is financially and medicallycleared by [facility] at the time the applicant has been discharged from [facility] for which outcomes can vary between 1 to 4 months based on individual case complexities. * Alicia Glez, MECHANICAL METER TESTER - 09/11/2022 10:50 AM EDT Occupational Therapy Treatment Note Treatment Number OT: 5 Patient Dx: Ishan Irving??is a 62 y.o.??female??admitted on 08/14/2022??with a medical history notable for??recent L femoral neck fracture,??bipolar disorder, resolving medication-induced Parkinsonism, insulin- dependent diabetes mellitus,??hx of alcohol use disorder (reported to be in remission for 1.5 years) c/b chronic pancreatitis, iron deficiency anemia,??GERD??c/b??esophagitis &??Farrell's esophagus??presenting in transfer from [facility], suspected to be in cardiogenic shock and [...] Therapy: 48 (x2 schm, x1 thera act 1728-1094) Pager: [phone] DANIELA Montes 09/11/2022 Occupational Therapy Rehabilitation Department * Briana Bryant, ELEVATOR EXAMINER - 09/11/2022 10:13 AM EDT Speech-Language Pathology Consult Note Ishan Irving is a 62 year old female with a medical history notable for??recent L femoral neck fracture,??bipolar disorder, resolving medication- induced Parkinsonism, insulin-dependent diabetesmellitus,??hx of alcohol use disorder (reported to be in remission for 1.5 years) c/b chronic pancreatitis, iron deficiency anemia,??GERD??c/b??esophagitis &??Farrell's esophagus??presenting in transfer from [facility]??on 08/14/2022, suspected to be in cardiogenic shock and found to be in mixed shock with concern for stress cardiomyopathy.??ELEVATOR EXAMINER following for swallow, cognitive tx. MBS completed [...] placement as well as GJ tube placement. ELEVATOR EXAMINER team has been following pt for dysphagia in ICU. Transferred to floor on 09/07/22. ELEVATOR EXAMINER have been unable to work w/ Pt on PO trials due to NPO for potential PEG, and now GJ tube. Was cleared to takesmall amounts of ice chips yesterday, pt seen, however had emesis episode w/ ice chips at that time. RN states pt NPO for potential surgery again today, DHT to be replaced for medication passes in mean time as per RN.. ELEVATOR EXAMINER team will continue to monitor. Briana Bryant MA [facility]-ELEVATOR EXAMINER Inpatient Rehabilitation Medicine pager:# [phone] * Chau Keith MD - 09/11/2022 6:15 AM EDT Images from the original note were not included. Inpatient Hospital Medicine Progress Note 09/11/2022 Patient Name: ISHAN IRVING Date of : 1960 Age: 62 y.o. Hospital Admit Date: 08/14/2022 Hospital Day: 28 Inpatient Attending: Molina Flores MD PCP: Chris Stanley APRN ([phone]) ID: Ishan Irving is a 62 y.o. 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.5 years) c/b chronic pancreatitis, iron deficiency anemia, ??GERD??c/b??esophagitis &??Farrell's esophagus, who was admitted to [facility] on [place]22 (now on Hospital Day #28) [...] fellows interpretation Confirmed by fellow Niurka Rose ([id number]) on 09/07/2022 8:45:34 AM Confirmed by MD [...] Date/Time Lower Respiratory Culture Bronchial Alveolar Lavage [[id number]] Collected: 08/21/22 1650 Lab Status: Final result Specimen: Bronchial Alveolar Lavage Updated: 08/23/22 0741 Lower Respiratory Culture Rare mixed bacterial morphotypes suggestive of normal upper respiratory wiley Gram Stain -- Few Neutrophils seen No squamous epithelial cells seen No microorganisms seen. Fungus Culture & Calc Stain Bronchial Alveolar Lavage [[id number]] (Abnormal) Collected: 08/21/22 1650 Lab Status: Preliminary result Specimen: Bronchial Alveolar Lavage Updated: 08/24/22 1452 AFB culture Bronchial Alveolar Lavage [[id number]] Collected: 08/21/221649 Lab Status: Preliminary result Specimen: Bronchial Alveolar Lavage Updated: 08/24/22 2219 Acid Fast Bacilli Culture -- No Acid Fast Bacilli isolated to date If active tuberculosis is suspected, the patient should be on [employer] PRECAUTIONS. Call Infection Prevention for assistance if needed. Acid Fast Stain No Acid Fast Bacilli seen Fungus culture [[id number]] (Abnormal) Collected: 08/21/221649 Lab Status: Preliminary result Specimen: Bronchial Alveolar Lavage Updated: 08/24/22 1452 Fungus Culture Rare Jacky albicans Calcofluor White Stain [[id number]] Collected: 08/21/221649 Lab Status: Final result Specimen: Bronchial Alveolar Lavage Updated: 08/21/222015 Calcofluor Stain Calcofluor White Preparation: Negative Lower Respiratory Culture Bronchial Alveolar Lavage [[id number]] Collected: 08/21/221644 Lab Status: Final result Specimen: Bronchial Alveolar Lavage Updated: 08/23/22 0741 Lower Respiratory Culture Rare mixed bacterial morphotypes suggestive of normal upper respiratory wiley Gram Stain -- Moderate Neutrophils seen No squamous epithelial cells seen No microorganisms seen. Fungus Culture & Calc Stain Bronchial Alveolar Lavage [[id number]] (Abnormal) Collected: 08/21/221644 Lab Status: Preliminary result Specimen: Bronchial Alveolar Lavage Updated: 08/24/22 1453 AFB culture Bronchial Alveolar Lavage [[id number]] Collected: 08/21/221644 Lab Status: Preliminary result Specimen: Bronchial Alveolar Lavage Updated: 08/24/22 2221 Acid Fast Bacilli Culture -- No Acid Fast Bacilli isolated to date If active tuberculosis is suspected, the patient should be on [employer] PRECAUTIONS. Call Infection Prevention for assistance if needed. Acid Fast Stain No Acid Fast Bacilli seen Fungus culture [[id number]] (Abnormal) Collected: 08/21/221644 Lab Status: Preliminary result Specimen: Bronchial Alveolar Lavage Updated: 08/24/22 1453 Fungus Culture Rare Jacky albicans Calcofluor White Stain [[id number]] Collected: 08/21/221644 Lab Status: Final result Specimen: Bronchial Alveolar Lavage Updated: 08/21/222016 Calcofluor Stain Calcofluor White Preparation: Negative Blood culture [[id number]] Collected: 08/19/22 1720 Lab Status: Final result Specimen: Blood Updated: 08/24/22 2301 Blood Culture No growth at 5 days. Lower Respiratory Culture Sputum Induced [[id number]] Collected: 08/19/22 1451 Lab Status: Final result Specimen: Sputum Induced Updated: 08/21/22 0948 Lower Respiratory Culture Rare mixed bacterial morphotypes suggestive of normal upper respiratory wiley Gram Stain -- Many Neutrophils seen Few squamous epithelial cells seen No microorganisms seen. Blood culture [[id number]] Collected: 08/19/22 1330 Lab Status: Final result Specimen: Blood Updated: 08/24/22 1501 Blood Culture No growth at 5 days. Legionella Urinary Antigen [[id number]] Collected: 08/18/22 1013 Lab Status: Final result [...] Catheter Urine; Other; sepsis, bacteria on UA [[id number]] Collected: 08/15/22 1225 Lab Status: Final result Specimen: Indwelling Catheter Urine Updated: 08/16/22 0804 Urine Culture 1,000-9,000 cfu/ml Insignificant growth COVID-19 PCR [[id number]] Collected: 08/15/22 1150 Lab Status: Final result [...] using the Simplexa COVID-19 Direct Assay by [employer] as authorized by the FDA issued Emergency [...] Department of Pathology and Laboratory Medicine at [facility], certified under the Clinical Laboratory Improvement Amendments [...] fact sheets at the following FDA website: https://www.fda.gov/medical-devices/jmspdrkptjt-jlljobl-0248-elhjm-69-wyyculvvz- ipg-hnibfeyxmkmfig-zmxuemu-devices/lnysa-rgpahyliyrb-rccz SARS-CoV-2 Source MAINFRAME ARCHITECT Swab Lower Respiratory Culture Sputum Induced [[id number]] Collected: 08/15/22 0740 Lab Status: Final result Specimen: Sputum Induced Updated: 08/17/22 1015 Lower Respiratory Culture Rare normal upper respiratory wiley Gram Stain -- Many Neutrophils Few squamous epithelial cells Rare mixed bacterial morphotypes suggestive of normal upper respiratory wiley Blood culture [[id number]] Collected: 08/15/22 0110 Lab Status: Final result Specimen: Blood Updated: 08/20/22 0701 Blood Culture No growth at 5 days. MRSA PCR Screen ([facility]/CGP/APD/NLH) [[id number]] Collected: 08/15/22 0050 Lab Status: Final result Specimen: Nasopharyngeal Swab Updated: 08/17/22 1419 MRSA Result Negative MRSA Interp -- Methicillin-resistant Staphylococcus aureus (MRSA) is NOT DETECTED The MRSA target DNA sequences (mec and SCC) were not detected within the acceptable ranges using the Xpert MRSA NxG on the GeneXpert Dx System (Unfold). This suggests the absence of MRSA in the patient specimen submitted for testing. This test is cleared by the U.S. Food and Drug Administration for clinical use and its performance characteristics have been verified by the [facility] at [facility]. This result does not rule out the presence of any other organisms. Rare false negative results may occur if MRSA is present at low concentrations with much higher concentrations of other organisms including MRSE or S. aureus with an empty SCC cassette. Comment: [VERIFIED DATE]08.17.22 Verified By:Shannon Smiley (Electronic Signature) Blood culture [[id number]] Collected: 08/14/22 7009 Lab Status: Final result Specimen: Blood Updated: [...] who have questions please contact the health infant childcare provider that requested your imaging first. Electronically signed by: Davi Terry MD, [facility] ([phone]), at 08/15/2022 3:53 AM XR Abdomen 1 [...] who have questions please contact the health infant childcare provider that requested your imaging first. Electronically signed by: Liliane Adams MD, [facility] ([phone]), at 08/15/2022 9:05 AM XR Chest One [...] who have questions please contact the health infant childcare provider that requested your imaging first. Electronically signed by: Davi Terry MD, [facility] ([phone]), at 08/15/2022 3:55 AM XR Abdomen 1 [...] who have questions please contact the health infant childcare provider that requested your imaging first. Electronically signed by: Davi Terry MD, [facility] ([phone]), at 08/15/2022 6:41 AM XR Chest One [...] who have questions please contact the health infant childcare provider that requested your imaging first. Electronically signed by: Alfonso Adams MD, [facility] ([phone]), at 08/16/2022 10:[address] Head wo [...] who have questions please contact the health infant childcare provider that requested your imaging first. Electronically signed by: Moustapha Correa MD, [facility] ([phone]), at 08/16/2022 11:19 PM XR Abdomen 1 [...] who have questions please contact the health infant childcare provider that requested your imaging first. Electronically signed by: Jenn Pina MD, [facility] ([phone]), at 08/17/2022 2:[address] Head wo Contrast (Generic) (Exam End: 08/18/2022 3:14 PM) Impression No acute intracranial process. Thank you for letting us participate in the care of this patient. If you are a health care provider and have any questions regarding this report, please contact the number below. For patients who have questions please contact the health infant childcare provider that requested your imaging first. Electronically signed by: Antonio Jordan MD, [facility] ([phone]), at 08/18/2022 3:18 PM XR Chest One [...] who have questions please contact the health infant childcare provider that requested your imaging first. Electronically signed by: Alan De Guzman MD, [facility] ([phone]), at 08/19/2022 3:14 PM MRI Brain wo Contrast (Exam End: 08/19/2022 10:15 PM) Impression No acute infarction, mass or mass effect. Thank you for letting us participate in the care of this patient. If you are a health care provider and have any questions regarding this report, please contact the number below. For patients who have questions please contact the health infant childcare provider that requested your imaging first. Electronically signed by: Jagdeep Lee MD, [facility] ([phone]), at 08/20/2022 3:34 AM XR Chest for [...] who have questions please contact the health infant childcare provider that requested your imaging first. Electronically signed by: Alan De Guzman MD, [facility] ([phone]), at 08/19/2022 4:[address] Hip w [...] who have questions please contact the health infant childcare provider that requested your imaging first. Electronically signed by: Aicha Chowdhury MD, [facility] ([phone]), at 08/21/2022 9:[address] Chest w [...] who have questions please contact the health infant childcare provider that requested your imaging first. Electronically signed by: Jagdeep Lee MD, [facility] ([phone]), at 08/21/2022 6:56 AM XR Hip 2-3 Views Left (Exam End: 08/22/2022 12:19 AM) Impression No radiographic evidence of infection. Thank you for letting us participate in the care of this patient. If you are a health care provider and have any questions regarding this report, please contact the number below. For patients who have questions please contact the health infant childcare provider that requested your imaging first. Electronically signed by: Viktor Cervantes MD, [facility] ([phone]), at 08/22/2022 12:43 PM XR Pelvis (Generic) (Exam End: 08/22/2022 12:19 AM) Impression No radiographic evidence of infection status post left hip ORIF. Thank you for letting us participate in the care of this patient. If you are a health care provider and have any questions regarding this report, please contact the number below. For patients who have questions please contact the health infant childcare provider that requested your imaging first. Electronically signed by: Richard Billings MD, [facility] ([phone]), at 08/22/2022 10:[address] Angiogram Coronary [...] who have questions please contact the health infant childcare provider that requested your imaging first. Electronically signed by: Arlette Mays MD, [facility] ([phone]), at 08/27/2022 11:[address] Chest wo Contrast (Generic) (Exam End: 08/27/2022 8:58 AM) Impression Stable findings of multifocal pneumonia. No interval abnormality. Thank you for letting us participate in the care of this patient. If you are a health care provider and have any questions regarding this report, please contact the number below. For patients who have questions please contact the health infant childcare provider that requested your imaging first. Electronically signed by: MINH QUIROGA MD, [facility] ([phone]), at 08/27/2022 10:48 AM XR Fluoro Barium [...] who have questions please contact the health infant childcare provider that requested your imaging first. Electronically signed by: Aron Billings MD, [facility] ([phone]), at 08/31/2022 12:02 PM XR Fluoro Barium [...] who have questions please contact the health infant childcare provider that requested your imaging first. Electronically signed by: Alfonso Adams MD, [facility] ([phone]), at 09/04/2022 10:57 AM XR Abdomen 1 [...] who have questions please contact the health infant childcare provider that requested your imaging first. Electronically signed by: Jagdeep Lee MD, [facility] ([phone]), at 09/04/2022 10:35 PM XR Chest One [...] who have questions please contact the health infant childcare provider that requested your imaging first. Electronically signed by: Jagdeep Lee MD, [facility] ([phone]), at 09/04/2022 10:35 PM XR Chest One View (Exam End: 09/05/2022 9:24 AM) Impression 1. Reposition enteric tube now extending below the diaphragm and included [id number]. 2. Similar appearance of elevated right hemidiaphragm and linear/patchy bibasilar opacities which may represent atelectasis or possibly aspiration. Thank you for letting us participate in the care of this patient. If you are a health care provider and have any questions regarding this report, please contact the number below. For patients who have questions please contact the health infant childcare provider that requested your imaging first. Electronically signed by: AUDI PERDOMO MD, [facility] ([phone]), at 09/05/2022 3:43 PM XR Abdomen 1 [...] who have questions please contact the health infant childcare provider that requested your imaging first. Electronically signed by: Camille Garcia MD, [facility] ([phone]), at 09/10/2022 1:16 AM Medications: Scheduled: ??? [...] RD??c/b??esophagitis &??Farrell's esophagus, who was admitted to [facility] on 08/14/2022 (now on Hospital Day #23) [...] that she should continue to work with PT/OT/ELEVATOR EXAMINER/nursing but that the most recent assessments still [...] discharge - C/w valproate 300mg q6h - ELEVATOR EXAMINER following, NPO at present - Psychiatry Consult, [...] Medicine PGY1 Medicine Team: Jose Juan, Pager #[phone] Date: 09/11/2022 Associated attestation - Molina Flores [...] PLAN GOAL OUTCOME EVALUATION: * Briana Bryant ELEVATOR EXAMINER - 09/10/2022 12:44 PM EDT Speech Therapy Note Patient Profile:??Ishan Irving is a 62 year old female with a medical history notable for??recent L femoral neck fracture,??bipolar disorder, resolving medication-induced Parkinsonism, insulin-dependent diabetes mellitus,??hx of alcohol use disorder (reported to be in remission for 1.5 years)c/b chronic pancreatitis, iron deficiency anemia,??GERD??c/b??esophagitis &??Farrell's esophagus??presenting in transfer from [facility]??on 08/14/2022, suspected to be in cardiogenic shock and found to be in mixed shock with concern for stress cardiomyopathy.??ELEVATOR EXAMINER following for swallow, cognitive tx. MBS completed [...] x1 of 8 ice chip trials w/ ELEVATOR EXAMINER; refer to Gastroenterology note for further information. Education: Pt educated on results and recommendations, discussed with nursing. Assessment: Pt was seen today for a follow-up ELEVATOR EXAMINER visit. Pt w/ ongoing moderate- severe dysphagia [...] assist from??staff as needed Plan: Therapy Frequency (ELEVATOR EXAMINER Eval): 2-4 times/wk Pt./family are in agreement with treatment plan. Total Minutes (Speech Language Pathology): 12 Thank you for this consult with this patient. Please feel free to message me with any questions or concerns. Sari Juarez. Loop Cutter Clinician Speech-Language Pathology Patient status, treatment interventions, and goals discussed with student. I am in agreement with note as documented and was present for all aspects of the patient treatment session. Briana Bryant MA, [facility]-ELEVATOR EXAMINER Pager: [phone] Speech-Language Pathology Inpatient Rehabilitation Medicine * Marybeth Shelley RN - 09/10/2022 11:29 AM EDTSummary: [facility] Medicaid Referral Identification of Skilled Nursing Care Medicaid insurance coverage IS required to facilitate this hospital discharge and was determined due to the following circumstances: Patient is in need of rehab at discharge prior to returning home with . Current insurance plan is [place] Medicaid Primary Care Plus, this plan does not have rehab coverage. Confirmed with spouse that they DO NOT have [employer] Medicaid coverage for [place] residents or [employer] Medicaid coverage for [place] residents and that an application for these specific Skilled Nursing Care Medicaid programs HAVE NOT been submitted to their State of Residence to date for enrollment. Conversation with patient and/or patient advocate regarding the need for [employer] Medicaid insurance coverage was conducted on 09/10/2022 and a referral has been made to the [employer] for [employer] Medicaid insurance assistance and/or enrollment on 09/10/2022. Marybeth Shelley RN, BSN Clinical Services Manager - Medicine Office of Care Management Office: Pager: [phone] * Minh Cantu MD - 09/10/2022 11:00 [...] RD??c/b??esophagitis &??Farrell's esophagus, who was admitted to [facility] on 08/14/2022 (now on Hospital Day #21), [...] deficiency anemia,??GERD??c/b??esophagitis &??Farrell's esophagus??presenting in transfer from [facility], suspected to be in cardiogenic shock and found to be in mixed shock with concern for stress cardiomyopathy. She is s/p ORIF left femoral neck fracture ~ 4/ at OSH. Interval History: Transferred to [facility], attempted PEG placement 5/, unsuccessful d/t esophageal [...] the current findings, Anticipated Discharge Disposition (PT): alf facility when medically ready for hospital discharge. [...] plan as stated. Time IN / OUT: [id number] Total Minutes, Physical Therapy: 42 Billing Code: TA x3 Trell Sanford PT, DPT Pager: [phone] Physical Therapy Inpatient Rehabilitation Department * Lucia [...] Last revised on 03/10/22 #3, per recent ELEVATOR EXAMINER note on 09/04 - Addendum: ELEVATOR EXAMINER returned to pt's room at 1230 to [...] and agreement with thetreatment plan and informed ELEVATOR EXAMINER of her continued goal to resume consuming [...] Molina Flores MD PCP: Chris Stanley APRN ([phone]) ID: Ishan Irving is a 62 y.o. 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.5 years) c/b chronic pancreatitis, iron deficiency anemia, ??GERD??c/b??esophagitis &??Farrell's esophagus, who was admitted to [facility] on 08/14/2022 (now on Hospital Day #27) [...] fellows interpretation Confirmed by fellow Niurka Rose ([id number]) on 09/07/2022 8:45:34 AM Confirmed by MD [...] Date/Time Lower Respiratory Culture Bronchial Alveolar Lavage [[id number]] Collected: 08/21/22 1650 Lab Status: Final result Specimen: Bronchial Alveolar Lavage Updated: 08/23/22 0741 Lower Respiratory Culture Rare mixed bacterial morphotypes suggestive of normal upper respiratory wiley Gram Stain -- Few Neutrophils seen No squamous epithelial cells seen No microorganisms seen. Fungus Culture & Calc Stain Bronchial Alveolar Lavage [[id number]] (Abnormal) Collected: 08/21/221649 Lab Status: Preliminary result Specimen: Bronchial Alveolar Lavage Updated: 08/24/22 1452 AFB culture Bronchial Alveolar Lavage [[id number]] Collected: 08/21/221649 Lab Status: Preliminary result Specimen: Bronchial Alveolar Lavage Updated: 08/24/22 2219 Acid Fast Bacilli Culture -- No Acid Fast Bacilli isolated to date If active tuberculosis is suspected, the patient should be on [employer] PRECAUTIONS. Call Infection Prevention for assistance if needed. Acid Fast Stain No Acid Fast Bacilli seen Fungus culture [[id number]] (Abnormal) Collected: 08/21/221649 Lab Status: Preliminary result Specimen: Bronchial Alveolar Lavage Updated: 08/24/22 145 Fungus Culture Rare Jacky albicans Calcofluor White Stain [[id number]] Collected: 08/21/221649 Lab Status: Final result Specimen: Bronchial Alveolar Lavage Updated: 08/21/222015 Calcofluor Stain Calcofluor White Preparation: Negative Lower Respiratory Culture Bronchial Alveolar Lavage [[id number]] Collected: 08/21/221644 Lab Status: Final result Specimen: Bronchial Alveolar Lavage Updated: 08/23/22 0741 Lower Respiratory Culture Rare mixed bacterial morphotypes suggestive of normal upper respiratory wiley Gram Stain -- Moderate Neutrophils seen No squamous epithelial cells seen No microorganisms seen. Fungus Culture & Calc Stain Bronchial Alveolar Lavage [[id number]] (Abnormal) Collected: 08/21/221644 Lab Status: Preliminary result Specimen: Bronchial Alveolar Lavage Updated: 08/24/22 1453 AFB culture Bronchial Alveolar Lavage [[id number]] Collected: 08/21/221644 Lab Status: Preliminary result Specimen: Bronchial Alveolar Lavage Updated: 08/24/22 2221 Acid Fast Bacilli Culture -- No Acid Fast Bacilli isolated to date If active tuberculosis is suspected, the patient should be on [employer] PRECAUTIONS. Call Infection Prevention for assistance if needed. Acid Fast Stain No Acid Fast Bacilli seen Fungus culture [[id number]] (Abnormal) Collected: 08/21/221644 Lab Status: Preliminary result Specimen: Bronchial Alveolar Lavage Updated: 08/24/22 1453 Fungus Culture Rare Jacky albicans Calcofluor White Stain [[id number]] Collected: 08/21/22 1645 Lab Status: Final result Specimen: Bronchial Alveolar Lavage Updated: 08/21/22 2017 Calcofluor Stain Calcofluor White Preparation: Negative Blood culture [[id number]] Collected: 08/19/22 1720 Lab Status: Final result Specimen: Blood Updated: 08/24/22 2301 Blood Culture No growth at 5 days. Lower Respiratory Culture Sputum Induced [[id number]] Collected: 08/19/22 1451 Lab Status: Final result Specimen: Sputum Induced Updated: 08/21/22 0948 Lower Respiratory Culture Rare mixed bacterial morphotypes suggestive of normal upper respiratory wiley Gram Stain -- Many Neutrophils seen Few squamous epithelial cells seen No microorganisms seen. Blood culture [[id number]] Collected: 08/19/22 1330 Lab Status: Final result Specimen: Blood Updated: 08/24/22 1501 Blood Culture No growth at 5 days. Legionella Urinary Antigen [[id number]] Collected: 08/18/22 1013 Lab Status: Final result [...] Catheter Urine; Other; sepsis, bacteria on UA [[id number]] Collected: 08/15/22 1225 Lab Status: Final result Specimen: Indwelling Catheter Urine Updated: 08/16/22 0804 Urine Culture 1,000-9,000 cfu/ml Insignificant growth COVID-19 PCR [[id number]] Collected: 08/15/22 1150 Lab Status: Final result [...] using the Simplexa COVID-19 Direct Assay by [employer] as authorized by the FDA issued Emergency [...] Department of Pathology and Laboratory Medicine at [facility], certified under the Clinical Laboratory Improvement Amendments [...] fact sheets at the following FDA website: https://www.fda.gov/medical-devices/cxipoqbfmnz-kcafwtd-3663-kcsug-93-ahowhmfjl- obr-vulctmtyzsnmhs-oensjaj-devices/bonve-sdywxvfccbn-hmlh SARS-CoV-2 Source MAINFRAME ARCHITECT Swab Lower Respiratory Culture Sputum Induced [[id number]] Collected: 08/15/22 0740 Lab Status: Final result Specimen: Sputum Induced Updated: 08/17/22 1015 Lower Respiratory Culture Rare normal upper respiratory wiley Gram Stain -- Many Neutrophils Few squamous epithelial cells Rare mixed bacterial morphotypes suggestive of normal upper respiratory wiley Blood culture [[id number]] Collected: 08/15/22 0110 Lab Status: Final result Specimen: Blood Updated: 08/20/22 0701 Blood Culture No growth at 5 days. MRSA PCR Screen ([facility]D/[facility]H) [[id number]] Collected: 08/15/22 0050 Lab Status: Final result Specimen: Nasopharyngeal Swab Updated: 08/17/22 1419 MRSA Result Negative MRSA Interp -- Methicillin-resistant Staphylococcus aureus (MRSA) is NOT DETECTED The MRSA target DNA sequences (mec and SCC) were not detected within the acceptable ranges using the Xpert MRSA NxG on the GeneXpert Dx System (Unfold). This suggests the absence of MRSA in the patient specimen submitted for testing. This test is cleared by the U.S. Food and Drug Administration for clinical use and its performance characteristics have been verified by the [facility] at [facility]. This result does not rule out the presence of any other organisms. Rare false negative results may occur if MRSA is present at low concentrations with much higher concentrations of other organisms including MRSE or S. aureus with an empty SCC cassette. Comment: [VERIFIED DATE]08.17.22 Verified By:Shannon Smiley (Electronic Signature) Blood culture [[id number]] Collected: 08/14/22 2355 Lab Status: Final result [...] who have questions please contact the health infant childcare provider that requested your imaging first. Electronically signed by: Davi Terry MD, [facility] ([phone]), at 08/15/2022 3:53 AM XR Abdomen 1 [...] who have questions please contact the health infant childcare provider that requested your imaging first. Electronically signed by: Liliane Adams MD, [facility] ([phone]), at 08/15/2022 9:05 AM XR Chest One [...] who have questions please contact the health infant childcare provider that requested your imaging first. Electronically signed by: Davi Terry MD, [facility] ([phone]), at 08/15/2022 3:55 AM XR Abdomen 1 [...] who have questions please contact the health infant childcare provider that requested your imaging first. Electronically signed by: Davi Terry MD, [facility] ([phone]), at 08/15/2022 6:41 AM XR Chest One [...] who have questions please contact the health infant childcare provider that requested your imaging first. Electronically signed by: Alfonso Adams MD, [facility] ([phone]), at 08/16/2022 10:[address] Head wo [...] who have questions please contact the health infant childcare provider that requested your imaging first. Electronically signed by: Moustapha Correa MD, [facility] ([phone]), at 08/16/2022 11:19 PM XR Abdomen 1 [...] who have questions please contact the health infant childcare provider that requested your imaging first. Electronically signed by: Jenn Pina MD, [facility] ([phone]), at 08/17/2022 2:[address] Head wo Contrast (Generic) (Exam End: 08/18/2022 3:14 PM) Impression No acute intracranial process. Thank you for letting us participate in the care of this patient. If you are a health care provider and have any questions regarding this report, please contact the number below. For patients who have questions please contact the health infant childcare provider that requested your imaging first. Electronically signed by: Antonio Jordan MD, [facility] ([phone]), at 08/18/2022 3:18 PM XR Chest One [...] who have questions please contact the health infant childcare provider that requested your imaging first. Electronically signed by: Alan De Guzman MD, [facility] ([phone]), at 08/19/2022 3:14 PM MRI Brain wo Contrast (Exam End: 08/19/2022 10:15 PM) Impression No acute infarction, mass or mass effect. Thank you for letting us participate in the care of this patient. If you are a health care provider and have any questions regarding this report, please contact the number below. For patients who have questions please contact the health infant childcare provider that requested your imaging first. Electronically signed by: Jagdeep Lee MD, [facility] ([phone]), at 08/20/2022 3:34 AM XR Chest for [...] who have questions please contact the health infant childcare provider that requested your imaging first. Electronically signed by: Alan De Guzman MD, [facility] ([phone]), at 08/19/2022 4:[address] Hip w [...] who have questions please contact the health infant childcare provider that requested your imaging first. Electronically signed by: Aicha Chowdhury MD, [facility] ([phone]), at 08/21/2022 9:[address] Chest w [...] who have questions please contact the health infant childcare provider that requested your imaging first. Electronically signed by: Jagdeep Lee MD, [facility] ([phone]), at 08/21/2022 6:56 AM XR Hip 2-3 Views Left (Exam End: 08/22/2022 12:19 AM) Impression No radiographic evidence of infection. Thank you for letting us participate in the care of this patient. If you are a health care provider and have any questions regarding this report, please contact the number below. For patients who have questions please contact the health infant childcare provider that requested your imaging first. Electronically signed by: Viktor Cervantes MD, [facility] ([phone]), at 08/22/2022 12:43 PM XR Pelvis (Generic) (Exam End: 08/22/2022 12:19 AM) Impression No radiographic evidence of infection status post left hip ORIF. Thank you for letting us participate in the care of this patient. If you are a health care provider and have any questions regarding this report, please contact the number below. For patients who have questions please contact the health infant childcare provider that requested your imaging first. Electronically signed by: Richard Billings MD, [facility] ([phone]), at 08/22/2022 10:[address] Angiogram Coronary [...] who have questions please contact the health infant childcare provider that requested your imaging first. Electronically signed by: Arlette Mays MD, [facility] ([phone]), at 08/27/2022 11:[address] Chest wo Contrast (Generic) (Exam End: 08/27/2022 8:58 AM) Impression Stable findings of multifocal pneumonia. No interval abnormality. Thank you for letting us participate in the care of this patient. If you are a health care provider and have any questions regarding this report, please contact the number below. For patients who have questions please contact the health infant childcare provider that requested your imaging first. Electronically signed by: MINH QUIROGA MD, [facility] ([phone]), at 08/27/2022 10:48 AM XR Fluoro Barium [...] who have questions please contact the health infant childcare provider that requested your imaging first. Electronically signed by: Aron Billings MD, [facility] ([phone]), at 08/31/2022 12:02 PM XR Fluoro Barium [...] who have questions please contact the health infant childcare provider that requested your imaging first. Electronically signed by: Alfonso Adams MD, [facility] ([phone]), at 09/04/2022 10:57 AM XR Abdomen 1 [...] who have questions please contact the health infant childcare provider that requested your imaging first. Electronically signed by: Jagdeep Lee MD, [facility] ([phone]), at 09/04/2022 10:35 PM XR Chest One [...] who have questions please contact the health infant childcare provider that requested your imaging first. Electronically signed by: Jagdeep Lee MD, [facility] ([phone]), at 09/04/2022 10:35 PM XR Chest One View (Exam End: 09/05/2022 9:24 AM) Impression 1. Reposition enteric tube now extending below the diaphragm and included [id number]. 2. Similar appearance of elevated right hemidiaphragm and linear/patchy bibasilar opacities which may represent atelectasis or possibly aspiration. Thank you for letting us participate in the care of this patient. If you are a health care provider and have any questions regarding this report, please contact the number below. For patients who have questions please contact the health infant childcare provider that requested your imaging first. Electronically signed by: AUDI PERDOMO MD, [facility] ([phone]), at 09/05/2022 3:43 PM XR Abdomen 1 [...] who have questions please contact the health infant childcare provider that requested your imaging first. Electronically signed by: Camille Garcia MD, [facility] ([phone]), at 09/10/2022 1:16 AM Medications: Scheduled: ??? [...] RD??c/b??esophagitis &??Farrell's esophagus, who was admitted to [facility] on [place]2022 (now on Hospital Day #23) [...] them that she shouldcontinue to work with PT/OT/ELEVATOR EXAMINER/nursing but that the most recent assessments still [...] discharge - C/w valproate 300mg q6h - ELEVATOR EXAMINER following, NPO at present - Psychiatry Consult, [...] Medicine PGY1 Medicine Team: Jose Juan, Pager #[phone] Date: 09/10/2022 Associated attestation - Molina Flores [...] bipolar, DM, EtOH, esophagitis, who presented to [facility] 3 days ago after being found unresponsive at home.?Patient found to have likely pneumonia +/- aspiration, newly reduced EF. Reason for Assessment: Tube Feeding, Follow-up Nutrition Recommendations: S/p PEG placement, resume current TF: Cyclic Peptamen AF at 90ml/hr for 14 hrs from 8922-3034 (pended). At goal, this will provide: Peptamen AF Total Volume Per Day: 1260 mL Scoops of Protein: 0 Calories per Day: 1512 Protein per Day: 96 g Free Water mL per Day: 1023 % RDI: 101 % Monitor hydration status on above TFs as they are concentrated. Pt may need additional fluids depending on IVFs, med flushes, p.o. Intake, etc. Po diet per ELEVATOR EXAMINER (recs 09/04 NPO s/p MBS) Continue 50,000 [...] Peptamen AF at 110ml/hr for 12hrs from 8898-3119 (see updated order above as of 09/07). [...] encounter: 64.5 kg (142 lb 1.6 oz). [place] Body Weight (IBW) (kg): 45.45 Usual Body [...] 08/25 r/t liquid tylenol, d/c per this principal technical writer's request as liquid tylenol acts as [...] while inpatient THANKS Wilda Blankenship RD Pager #:[phone] * Alicia Cook, OT - 09/09/2022 9:30 [...] deficiency anemia,??GERD??c/b??esophagitis &??Farrell's esophagus??presenting in transfer from [facility], suspected to be in cardiogenic shock and [...] Total Minutes, Occupational Therapy: 37 (2 TA, [id number]) Pager: [phone] Alicia Cook OT 09/09/2022 Occupational Therapy Rehabilitation [...] RD??c/b??esophagitis &??Farrell's esophagus, who was admitted to [facility] on 08/14/2022 (now on Hospital Day #21), [...] Molina Flores MD PCP: Chris Stanley APRN ([phone]) ID: Ishan Irving is a 62 y.o. 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.5 years) c/b chronic pancreatitis, iron deficiency anemia, ??GERD??c/b??esophagitis &??Farrell's esophagus, who was admitted to [facility] on 08/14/2022 (now on Hospital Day #26) [...] fellows interpretation Confirmed by fellow Niurka Rose ([id number]) on 09/07/2022 8:45:34 AM Confirmed by MD [...] Date/Time Lower Respiratory Culture Bronchial Alveolar Lavage [[id number]] Collected: 08/21/22 1650 Lab Status: Final result Specimen: Bronchial Alveolar Lavage Updated: 08/23/22 0741 Lower Respiratory Culture Rare mixed bacterial morphotypes suggestive of normal upper respiratory wiley Gram Stain -- Few Neutrophils seen No squamous epithelial cells seen No microorganisms seen. Fungus Culture & Calc Stain Bronchial Alveolar Lavage [[id number]] (Abnormal) Collected: 08/21/221649 Lab Status: Preliminary result Specimen: Bronchial Alveolar Lavage Updated: 08/24/22 1452 AFB culture Bronchial Alveolar Lavage [[id number]] Collected: 08/21/221649 Lab Status: Preliminary result Specimen: Bronchial Alveolar Lavage Updated: 08/24/22 2219 Acid Fast Bacilli Culture -- No Acid Fast Bacilli isolated to date If active tuberculosis is suspected, the patient should be on [employer]. Call Infection Prevention for assistance if needed. Acid Fast Stain No Acid Fast Bacilli seen Fungus culture [[id number]] (Abnormal) Collected: 08/21/221649 Lab Status: Preliminary result Specimen: Bronchial Alveolar Lavage Updated: 08/24/22 145 Fungus Culture Rare Jacky albicans Calcofluor White Stain [[id number]] Collected: 08/21/221649 Lab Status: Final result Specimen: Bronchial Alveolar Lavage Updated: 08/21/222015 Calcofluor Stain Calcofluor White Preparation: Negative Lower Respiratory Culture Bronchial Alveolar Lavage [[id number]] Collected: 08/21/221644 Lab Status: Final result Specimen: Bronchial Alveolar Lavage Updated: 08/23/22 0741 Lower Respiratory Culture Rare mixed bacterial morphotypes suggestive of normal upper respiratory wiley Gram Stain -- Moderate Neutrophils seen No squamous epithelial cells seen No microorganisms seen. Fungus Culture & Calc Stain Bronchial Alveolar Lavage [[id number]] (Abnormal) Collected: 08/21/221644 Lab Status: Preliminary result Specimen: Bronchial Alveolar Lavage Updated: 08/24/22 1453 AFB culture Bronchial Alveolar Lavage [[id number]] Collected: 08/21/221644 Lab Status: Preliminary result Specimen: Bronchial Alveolar Lavage Updated: 08/24/22 2221 Acid Fast Bacilli Culture -- No Acid Fast Bacilli isolated to date If active tuberculosis is suspected, the patient should be on [employer]. Call Infection Prevention for assistance if needed. Acid Fast Stain No Acid Fast Bacilli seen Fungus culture [[id number]] (Abnormal) Collected: 08/21/221644 Lab Status: Preliminary result Specimen: Bronchial Alveolar Lavage Updated: 08/24/22 145 Fungus Culture Rare Jacky albicans Calcofluor White Stain [[id number]] Collected: 08/21/22 1645 Lab Status: Final result Specimen: Bronchial Alveolar Lavage Updated: 08/21/22 2017 Calcofluor Stain Calcofluor White Preparation: Negative Blood culture [[id number]] Collected: 08/19/22 1720 Lab Status: Final result Specimen: Blood Updated: 08/24/22 2301 Blood Culture No growth at 5 days. Lower Respiratory Culture Sputum Induced [[id number]] Collected: 08/19/22 1451 Lab Status: Final result Specimen: Sputum Induced Updated: 08/21/22 0948 Lower Respiratory Culture Rare mixed bacterial morphotypes suggestive of normal upper respiratory wiley Gram Stain -- Many Neutrophils seen Few squamous epithelial cells seen No microorganisms seen. Blood culture [[id number]] Collected: 08/19/22 1330 Lab Status: Final result Specimen: Blood Updated: 08/24/22 1501 Blood Culture No growth at 5 days. Legionella Urinary Antigen [[id number]] Collected: 08/18/22 1013 Lab Status: Final result [...] Catheter Urine; Other; sepsis, bacteria on UA [[id number]] Collected: 08/15/22 1225 Lab Status: Final result Specimen: Indwelling Catheter Urine Updated: 08/16/22 0804 Urine Culture 1,000-9,000 cfu/ml Insignificant growth COVID-19 PCR [[id number]] Collected: 08/15/22 1150 Lab Status: Final result [...] Department of Pathology and Laboratory Medicine at [facility], certified under the Clinical Laboratory Improvement Amendments [...] fact sheets at the following FDA website: https://www.fda.gov/medical-devices/hpwknftegkl-ocoswin-8509-iqvyz-05-nmycgpxjc- rym-slkxbgvrtzotza-comrmwy-devices/relpu-vxkkydapywx-ctmi SARS-CoV-2 Source MAINFRAME ARCHITECT Swab Lower Respiratory Culture Sputum Induced [[id number]] Collected: 08/15/22 0740 Lab Status: Final result Specimen: Sputum Induced Updated: 08/17/22 1015 Lower Respiratory Culture Rare normal upper respiratory wiley Gram Stain -- Many Neutrophils Few squamous epithelial cells Rare mixed bacterial morphotypes suggestive of normal upper respiratory wiley Blood culture [[id number]] Collected: 08/15/22 0110 Lab Status: Final result Specimen: Blood Updated: 08/20/22 0701 Blood Culture No growth at 5 days. MRSA PCR Screen ([facility]D/[facility]H) [[id number]] Collected: 08/15/22 0050 Lab Status: Final result Specimen: Nasopharyngeal Swab Updated: 08/17/22 1419 MRSA Result Negative MRSA Interp -- Methicillin-resistant Staphylococcus aureus (MRSA) is NOT DETECTED The MRSA target DNA sequences (mec and SCC) were not detected within the acceptable ranges using the Xpert MRSA NxG on the GeneXpert Dx System (Unfold). This suggests the absence of MRSA in the patient specimen submitted for testing. This test is cleared by the U.S. Food and Drug Administration for clinical use and its performance characteristics have been verified by the [facility] at [facility]. This result does not rule out the presence of any other organisms. Rare false negative results may occur if MRSA is present at low concentrations with much higher concentrations of other organisms including MRSE or S. aureus with an empty SCC cassette. Comment: [VERIFIED DATE]08.17.22 Verified By:Shannon Smiley (Electronic Signature) Blood culture [[id number]] Collected: 08/14/22 2355 Lab Status: Final result [...] who have questions please contact the health infant childcare provider that requested your imaging first. Electronically signed by: Davi Terry MD, [facility] ([phone]), at 08/15/2022 3:53 AM XR Abdomen 1 [...] who have questions please contact the health infant childcare provider that requested your imaging first. Electronically signed by: Liliane Adams MD, [facility] ([phone]), at 08/15/2022 9:05 AM XR Chest One [...] who have questions please contact the health infant childcare provider that requested your imaging first. Electronically signed by: Davi Terry MD, [facility] ([phone]), at 08/15/2022 3:55 AM XR Abdomen 1 [...] who have questions please contact the health infant childcare provider that requested your imaging first. Electronically signed by: Davi Terry MD, [facility] ([phone]), at 08/15/2022 6:41 AM XR Chest One [...] who have questions please contact the health infant childcare provider that requested your imaging first. Electronically signed by: Alfonso Adams MD, [facility] ([phone]), at 08/16/2022 10:[address] Head wo [...] who have questions please contact the health infant childcare provider that requested your imaging first. Electronically signed by: Moustapha Correa MD, [facility] ([phone]), at 08/16/2022 11:19 PM XR Abdomen 1 [...] who have questions please contact the health infant childcare provider that requested your imaging first. Electronically signed by: Jenn Pina MD, [facility] ([phone]), at 08/17/2022 2:[address] Head wo Contrast (Generic) (Exam End: 08/18/2022 3:14 PM) Impression No acute intracranial process. Thank you for letting us participate in the care of this patient. If you are a health care provider and have any questions regarding this report, please contact the number below. For patients who have questions please contact the health infant childcare provider that requested your imaging first. Electronically signed by: Antonio Jordan MD, [facility] ([phone]), at 08/18/2022 3:18 PM XR Chest One [...] who have questions please contact the health infant childcare provider that requested your imaging first. Electronically signed by: Alan De Guzmna MD, [facility] ([phone]), at 08/19/2022 3:14 PM MRI Brain wo Contrast (Exam End: 08/19/2022 10:15 PM) Impression No acute infarction, mass or mass effect. Thank you for letting us participate in the care of this patient. If you are a health care provider and have any questions regarding this report, please contact the number below. For patients who have questions please contact the health infant childcare provider that requested your imaging first. Electronically signed by: Jagdeep Lee MD, [facility] ([phone]), at 08/20/2022 3:34 AM XR Chest for [...] who have questions please contact the health infant childcare provider that requested your imaging first. Electronically signed by: Alan De Guzman MD, [facility] ([phone]), at 08/19/2022 4:[address] Hip w [...] who have questions please contact the health infant childcare provider that requested your imaging first. Electronically signed by: Aicha Chowdhury MD, [facility] ([phone]), at 08/21/2022 9:[address] Chest w [...] who have questions please contact the health infant childcare provider that requested your imaging first. Electronically signed by: Jagdeep Lee MD, [facility] ([phone]), at 08/21/2022 6:56 AM XR Hip 2-3 Views Left (Exam End: 08/22/2022 12:19 AM) Impression No radiographic evidence of infection. Thank you for letting us participate in the care of this patient. If you are a health care provider and have any questions regarding this report, please contact the number below. For patients who have questions please contact the health infant childcare provider that requested your imaging first. Electronically signed by: Viktor Cervantes MD, [facility] ([phone]), at 08/22/2022 12:43 PM XR Pelvis (Generic) (Exam End: 08/22/2022 12:19 AM) Impression No radiographic evidence of infection status post left hip ORIF. Thank you for letting us participate in the care of this patient. If you are a health care provider and have any questions regarding this report, please contact the number below. For patients who have questions please contact the health infant childcare provider that requested your imaging first. Electronically signed by: Richard Billings MD, [facility] ([phone]), at 08/22/2022 10:[address] Angiogram Coronary [...] who have questions please contact the health infant childcare provider that requested your imaging first. Electronically signed by: Arlette Mays MD, [facility] ([phone]), at 08/27/2022 11:[address] Chest wo Contrast (Generic) (Exam End: 08/27/2022 8:58 AM) Impression Stable findings of multifocal pneumonia. No interval abnormality. Thank you for letting us participate in the care of this patient. If you are a health care provider and have any questions regarding this report, please contact the number below. For patients who have questions please contact the health infant childcare provider that requested your imaging first. Electronically signed by: MINH QUIROGA MD, [facility] ([phone]), at 08/27/2022 10:48 AM XR Fluoro Barium [...] who have questions please contact the health infant childcare provider that requested your imaging first. Electronically signed by: Aron Billings MD, [facility] ([phone]), at 08/31/2022 12:02 PM XR Fluoro Barium [...] who have questions please contact the health infant childcare provider that requested your imaging first. Electronically signed by: Alfonso Adams MD, [facility] ([phone]), at 09/04/2022 10:57 AM XR Abdomen 1 [...] who have questions please contact the health infant childcare provider that requested your imaging first. Electronically signed by: Jagdeep Lee MD, [facility] ([phone]), at 09/04/2022 10:35 PM XR Chest One [...] who have questions please contact the health infant childcare provider that requested your imaging first. Electronically signed by: Jagdeep Lee MD, [facility] ([phone]), at 09/04/2022 10:35 PM XR Chest One View (Exam End: 09/05/2022 9:24 AM) Impression 1. Reposition enteric tube now extending below the diaphragm and included [id number]. 2. Similar appearance of elevated right hemidiaphragm and linear/patchy bibasilar opacities which may represent atelectasis or possibly aspiration. Thank you for letting us participate in the care of this patient. If you are a health care provider and have any questions regarding this report, please contact the number below. For patients who have questions please contact the health infant childcare provider that requested your imaging first. Medications: Scheduled: ??? buPROPion 100 mg Per [...] RD??c/b??esophagitis &??Farrell's esophagus, who was admitted to [facility] on 08/14/2022 (now on Hospital Day #23) [...] that she should continue to work with PT/OT/ELEVATOR EXAMINER/nursing but that the most recent assessments still recommended acute rehab. Today's plan: - Continue tube feeds - Diabetes Team aware and titrating insulin accordingly - Surgery consulted for PEG placement today # Bipolar Disorder - Continue Seroquel 100mg nightly for now, patient and want it uptitrated before discharge - C/w valproate 300mg q6h - ELEVATOR EXAMINER following, NPO at present - Psychiatry Consult, [...] Medicine PGY1 Medicine Team: Jose Juan, Pager #[phone] Date: 09/09/2022 Associated attestation - Molina Flores [...] years) c/b chronic pancreatitis, iron deficiency anemia,??GERD??c/b??esophagitis &??Afrrell's esophagus??presenting in transfer from [facility], suspected to be in cardiogenic shock and [...] times/wk Total Minutes, Occupational Therapy: 45 (x3 [facility] [phone]) Pager: [phone] DANIELA Montes 09/08/2022 Occupational Therapy Rehabilitation Department [...] deficiency anemia,??GERD??c/b??esophagitis &??Farrell's esophagus??presenting in transfer from [facility], suspected to be in cardiogenic shock and [...] NPO for OR Monitoring:??Q4 Elsie Erickson APRN [facility] Endocrinology Diabetes Management Pager [phone] 20 minutes of this 35 minute visit [...] deficiency anemia,??GERD??c/b??esophagitis &??Farrell's esophagus??presenting in transfer from [facility], suspected to be in cardiogenic shock and found to be in mixed shock with concern for stress cardiomyopathy.??She is s/p ORIF left femoral neck fracture ~ 08/08 at OSH. ?? Interval History: Dobhoff placed, Moved from ISCU to floor status, plan for PEG today. ELEVATOR EXAMINER team will continue to follow for swallowing and cognition. Briana Bryant MA [facility]-ELEVATOR EXAMINER Inpatient Rehabilitation Medicine pager:# [phone] * Chau Keith MD - 09/08/2022 6:11 AM EDT Images from the original note were not included. Inpatient Hospital Medicine Progress Note 09/08/2022 Patient Name: ISHAN IRVING Date of : 1960 Age: 62 y.o. Hospital Admit Date: 08/14/2022 Hospital Day: 25 Inpatient Attending: Richard Pascal MD PCP: Chris Stanley APRN ([phone]) ID: Ishan Irving is a 62 y.o. 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.5 years) c/b chronic pancreatitis, iron deficiency anemia, ??GERD??c/b??esophagitis &??Farrell's esophagus, who was admitted to [facility] on 08/14/2022 (now on Hospital Day #25) [...] fellows interpretation Confirmed by fellow Niurka Rose ([id number]) on 09/07/2022 8:45:34 AM Confirmed by MD [...] Date/Time Lower Respiratory Culture Bronchial Alveolar Lavage [[id number]] Collected: 08/21/221649 Lab Status: Final result Specimen: Bronchial Alveolar Lavage Updated: 08/23/22 0741 Lower Respiratory Culture Rare mixed bacterial morphotypes suggestive of normal upper respiratory wiley Gram Stain -- Few Neutrophils seen No squamous epithelial cells seen No microorganisms seen. Fungus Culture & Calc Stain Bronchial Alveolar Lavage [[id number]] (Abnormal) Collected: 08/21/221649 Lab Status: Preliminary result Specimen: Bronchial Alveolar Lavage Updated: 08/24/22 145 AFB culture Bronchial Alveolar Lavage [[id number]] Collected: 08/21/221649 Lab Status: Preliminary result Specimen: Bronchial Alveolar Lavage Updated: 08/24/22 2219 Acid Fast Bacilli Culture -- No Acid Fast Bacilli isolated to date If active tuberculosis is suspected, the patient should be on AIRBORNE PRECAUTIONS. Call Infection Prevention for assistance if needed. Acid Fast Stain No Acid Fast Bacilli seen Fungus culture [[id number]] (Abnormal) Collected: 08/21/221649 Lab Status: Preliminary result Specimen: Bronchial Alveolar Lavage Updated: 08/24/22 145 Fungus Culture Rare Jacky albicans Calcofluor White Stain [[id number]] Collected: 08/21/221649 Lab Status: Final result Specimen: Bronchial Alveolar Lavage Updated: 08/21/22 2016 Calcofluor Stain Calcofluor White Preparation: Negative Lower Respiratory Culture Bronchial Alveolar Lavage [[id number]] Collected: 04/14/23 1645 Lab Status: Final result Specimen: Bronchial Alveolar Lavage Updated: 08/23/22 0741 Lower Respiratory Culture Rare mixed bacterial morphotypes suggestive of normal upper respiratory wiley Gram Stain -- Moderate Neutrophils seen No squamous epithelial cells seen No microorganisms seen. Fungus Culture & Calc Stain Bronchial Alveolar Lavage [[id number]] (Abnormal) Collected: 08/21/22 164 Lab Status: Preliminary result Specimen: Bronchial Alveolar Lavage Updated: 08/24/22 1453 AFB culture Bronchial Alveolar Lavage [[id number]] Collected: 08/21/221644 Lab Status: Preliminary result Specimen: Bronchial Alveolar Lavage Updated: 08/24/22 2221 Acid Fast Bacilli Culture -- No Acid Fast Bacilli isolated to date If active tuberculosis is suspected, the patient should be on AIRBORNE PRECAUTIONS. Call Infection Prevention for assistance if needed. Acid Fast Stain No Acid Fast Bacilli seen Fungus culture [[id number]] (Abnormal) Collected: 08/21/221644 Lab Status: Preliminary result Specimen: Bronchial Alveolar Lavage Updated: 08/24/22 1453 Fungus Culture Rare Jacky albicans Calcofluor White Stain [[id number]] Collected: 08/21/221644 Lab Status: Final result Specimen: Bronchial Alveolar Lavage Updated: 08/21/22 2017 Calcofluor Stain Calcofluor White Preparation: Negative Blood culture [[id number]] Collected: 08/19/22 1720 Lab Status: Final result Specimen: Blood Updated: 08/24/22 2301 Blood Culture No growth at 5 days. Lower Respiratory Culture Sputum Induced [[id number]] Collected: 08/19/22 1451 Lab Status: Final result Specimen: Sputum Induced Updated: 08/21/22 0948 Lower Respiratory Culture Rare mixed bacterial morphotypes suggestive of normal upper respiratory wiley Gram Stain -- Many Neutrophils seen Few squamous epithelial cells seen No microorganisms seen. Blood culture [[id number]] Collected: 08/19/22 1330 Lab Status: Final result Specimen: Blood Updated: 08/24/22 1501 Blood Culture No growth at 5 days. Legionella Urinary Antigen [[id number]] Collected: 08/18/22 1013 Lab Status: Final result [...] Catheter Urine; Other; sepsis, bacteria on UA [[id number]] Collected: 08/15/22 1225 Lab Status: Final result Specimen: Indwelling Catheter Urine Updated: 08/16/22 0804 Urine Culture 1,000-9,000 cfu/ml Insignificant growth COVID-19 PCR [[id number]] Collected: 08/15/22 1150 Lab Status: Final result [...] using the Simplexa COVID-19 Direct Assay by [employer] as authorized by the FDA issued Emergency [...] Department of Pathology and Laboratory Medicine at [facility], certified under the Clinical Laboratory Improvement Amendments [...] fact sheets at the following FDA website: https://www.fda.gov/medical-devices/utuhuwufndh-ezqqulq-7521-zdaic-18-bqvrfaqan- jrf-qwjthouzaviwvf-dptvosm-devices/szoef-dkaddoakpcs-zmia SARS-CoV-2 Source MAINFRAME ARCHITECT Swab Lower Respiratory Culture Sputum Induced [[id number]] Collected: 08/15/22 0740 Lab Status: Final result Specimen: Sputum Induced Updated: 08/17/22 1015 Lower Respiratory Culture Rare normal upper respiratory wiley Gram Stain -- Many Neutrophils Few squamous epithelial cells Rare mixed bacterial morphotypes suggestive of normal upper respiratory wiley Blood culture [[id number]] Collected: 08/15/22 0110 Lab Status: Final result Specimen: Blood Updated: 08/20/22 0701 Blood Culture No growth at 5 days. MRSA PCR Screen ([facility]/CGP/APD/NLH) [[id number]] Collected: 08/15/22 0050 Lab Status: Final result Specimen: Nasopharyngeal Swab Updated: 08/17/22 1419 MRSA Result Negative MRSA Interp -- Methicillin-resistant Staphylococcus aureus (MRSA) is NOT DETECTED The MRSA target DNA sequences (mec and SCC) were not detected within the acceptable ranges using the Xpert MRSA NxG on the GeneXpert Dx System (Unfold). This suggests the absence of MRSA in the patient specimen submitted for testing. This test is cleared by the U.S. Food and Drug Administration for clinical use and its performance characteristics have been verified by the [facility] at [facility]. This result does not rule out the presence of any other organisms. Rare false negative results may occur if MRSA is present at low concentrations with much higher concentrations of other organisms including MRSE or S. aureus with an empty SCC cassette. Comment: [VERIFIED DATE]08.17.22 Verified By:Shannon Smiley (Electronic Signature) Blood culture [[id number]] Collected: 08/14/22 6928 Lab Status: Final result Specimen: Blood Updated: [...] who have questions please contact the health infant childcare provider that requested your imaging first. Electronically signed by: Davi Terry MD, [facility] ([phone]), at 08/15/2022 3:53 AM XR Abdomen 1 [...] who have questions please contact the health infant childcare provider that requested your imaging first. Electronically signed by: Liliane Adams MD, [facility] ([phone]), at 08/15/2022 9:05 AM XR Chest One [...] who have questions please contact the health infant childcare provider that requested your imaging first. Electronically signed by: Davi Terry MD, [facility] ([phone]), at 08/15/2022 3:55 AM XR Abdomen 1 [...] who have questions please contact the health infant childcare provider that requested your imaging first. Electronically signed by: Davi Terry MD, [facility] ([phone]), at 08/15/2022 6:41 AM XR Chest One [...] who have questions please contact the health infant childcare provider that requested your imaging first. Electronically signed by: Alfonso Adams MD, [facility] ([phone]), at 08/16/2022 10:[address] Head wo [...] who have questions please contact the health infant childcare provider that requested your imaging first. Electronically signed by: Moustapha Correa MD, [facility] ([phone]), at 08/16/2022 11:19 PM XR Abdomen 1 [...] who have questions please contact the health infant childcare provider that requested your imaging first. Electronically signed by: Jenn Pina MD, [facility] ([phone]), at 08/17/2022 2:[address] Head wo Contrast (Generic) (Exam End: 08/18/2022 3:14 PM) Impression No acute intracranial process. Thank you for letting us participate in the care of this patient. If you are a health care provider and have any questions regarding this report, please contact the number below. For patients who have questions please contact the health infant childcare provider that requested your imaging first. Electronically signed by: Antonio Jordan MD, [facility] ([phone]), at 08/18/2022 3:18 PM XR Chest One [...] who have questions please contact the health infant childcare provider that requested your imaging first. Electronically signed by: Alan De Guzman MD, [facility] ([phone]), at 08/19/2022 3:14 PM MRI Brain wo Contrast (Exam End: 08/19/2022 10:15 PM) Impression No acute infarction, mass or mass effect. Thank you for letting us participate in the care of this patient. If you are a health care provider and have any questions regarding this report, please contact the number below. For patients who have questions please contact the health infant childcare provider that requested your imaging first. Electronically signed by: Jagdeep Lee MD, [facility] ([phone]), at 08/20/2022 3:34 AM XR Chest for [...] who have questions please contact the health infant childcare provider that requested your imaging first. Electronically signed by: Alan De Guzman MD, [facility] ([phone]), at 08/19/2022 4:[address] Hip w [...] who have questions please contact the health infant childcare provider that requested your imaging first. Electronically signed by: Aicha Chowdhury MD, [facility] ([phone]), at 08/21/2022 9:[address] Chest w [...] who have questions please contact the health infant childcare provider that requested your imaging first. Electronically signed by: Jagdeep Lee MD, [facility] ([phone]), at 08/21/2022 6:56 AM XR Hip 2-3 Views Left (Exam End: 08/22/2022 12:19 AM) Impression No radiographic evidence of infection. Thank you for letting us participate in the care of this patient. If you are a health care provider and have any questions regarding this report, please contact the number below. For patients who have questions please contact the health infant childcare provider that requested your imaging first. Electronically signed by: Viktor Cervantes MD, [facility] ([phone]), at 08/22/2022 12:43 PM XR Pelvis (Generic) (Exam End: 08/22/2022 12:19 AM) Impression No radiographic evidence of infection status post left hip ORIF. Thank you for letting us participate in the care of this patient. If you are a health care provider and have any questions regarding this report, please contact the number below. For patients who have questions please contact the health infant childcare provider that requested your imaging first. Electronically signed by: Richard Billings MD, [facility] ([phone]), at 08/22/2022 10:[address] Angiogram Coronary [...] who have questions please contact the health infant childcare provider that requested your imaging first. Electronically signed by: Arlette Mays MD, [facility] ([phone]), at 08/27/2022 11:[address] Chest wo Contrast (Generic) (Exam End: 08/27/2022 8:58 AM) Impression Stable findings of multifocal pneumonia. No interval abnormality. Thank you for letting us participate in the care of this patient. If you are a health care provider and have any questions regarding this report, please contact the number below. For patients who have questions please contact the health infant childcare provider that requested your imaging first. Electronically signed by: MINH QUIROGA MD, [facility] ([phone]), at 08/27/2022 10:48 AM XR Fluoro Barium [...] who have questions please contact the health infant childcare provider that requested your imaging first. Electronically signed by: Aron Billings MD, [facility] ([phone]), at 08/31/2022 12:02 PM XR Fluoro Barium [...] who have questions please contact the health infant childcare provider that requested your imaging first. Electronically signed by: Alfonso Adams MD, [facility] ([phone]), at 09/04/2022 10:57 AM XR Abdomen 1 [...] who have questions please contact the health infant childcare provider that requested your imaging first. Electronically signed by: Jagdeep Lee MD, [facility] ([phone]), at 09/04/2022 10:35 PM XR Chest One [...] who have questions please contact the health infant childcare provider that requested your imaging first. Electronically signed by: Jagdeep Lee MD, [facility] ([phone]), at 09/04/2022 10:35 PM XR Chest One View (Exam End: 09/05/2022 9:24 AM) Impression 1. Reposition enteric tube now extending below the diaphragm and included asats-kz-vrgg. 2. Similar appearance of elevated right hemidiaphragm and linear/patchy bibasilar opacities which may represent atelectasis or possibly aspiration. Thank you for letting us participate in the care of this patient. If you are a health care provider and have any questions regarding this report, please contact the number below. For patients who have questions please contact the health infant childcare provider that requested your imaging first. Electronically signed by: AUDI PERDOMO MD, [facility] ([phone]), at 09/05/2022 3:43 PM Medications: Scheduled: ??? [...] RD??c/b??esophagitis &??Farrell's esophagus, who was admitted to [facility] on 08/14/2022 (now on Hospital Day #23) [...] that she should continue to work with PT/OT/ELEVATOR EXAMINER/nursing but that the most recent assessments still recommended acute rehab. Today's plan: - Continue tube feeds - Diabetes Team aware and titrating insulin accordingly - Surgery consulted for PEG placement today # Bipolar Disorder - Continue Seroquel 100mg nightly for now, patient and want it uptitrated before discharge - C/w valproate 300mg q6h - ELEVATOR EXAMINER following, NPO at present - Psychiatry Consult, [...] Medicine PGY1 Medicine Team: Jose Juan, Pager #[phone] Date: 09/08/2022 Associated attestation - Molina Flores [...] 4:51 PM EDT Speech-Language Pathology Contact Note: ELEVATOR EXAMINER following for swallow, cognitive intervention. Discussed with nursing this AM, pending potential PEG today and NPO with TF held. TF restarted this PM but I was unable to return due to scheduling limitations. ELEVATOR EXAMINER team will follow up at later date for ongoing therapy, please secure chat/page withquestions/concerns. Thank you. Petty Mccullough M.S., CCC-ELEVATOR EXAMINER Inpatient Speech-Pathology Pager: [phone] * Feroz Portillo, CLINICAL SALES CONSULTANT - 09/07/2022 2:50 PM EDT Physical Therapy [...] deficiency anemia,??GERD??c/b??esophagitis &??Farrell's esophagus??presenting in transfer from [facility], suspected to be in cardiogenic shock and found to be in mixed shock with concern for stress cardiomyopathy. She is s/p ORIF left femoral neck fracture ~ 08/08 at OSH. Interval History: Moved to [facility], dobhoff placed Social History: single level home [...] TE-F x 3 FEROZ PORTILLO PTA Pager: [phone] Physical Therapy Inpatient Rehabilitation Department * Shanice Carrera, RD - 09/07/2022 2:38 PM EDT Nutrition Progress Note Ishan Irving is a 62 y.o.??female??with h/o bipolar, DM, EtOH, esophagitis, who presented to [facility] 3 days ago after being found unresponsive at home.?Patient found to have likely pneumonia +/- aspiration, newly reduced EF. Reason for Assessment: Tube Feeding, Follow-up Nutrition Recommendations: Enteral Nutrition: New: Cyclic Peptamen AF at 90ml/hr for 14 hrs from 8295-1467 (pended). At goal, this will provide: Peptamen AF Total Volume Per Day: 1260 mL Scoops of Protein: 0 Calories per Day: 1512 Protein per Day: 96 g Free Water mL per Day: 1023 % RDI: 101 % Monitor hydration status on above TFs as they are concentrated. Pt may need additional fluids depending on IVFs, med flushes, p.o. Intake, etc. Diet per ELEVATOR EXAMINER Continue 50,000 units vitamin D weekly; 1000 mcg folic acid and 100 mg thiamine daily. Monitor lytes. Replete as indicated Monitor BM. Goal of one every 24-48hrs while on EN Monitor weight to trend I was able to discuss plan with provider Murphy Manzano 1052 Current Nutrition Regimen: Active Orders Diet NPO diet (Give Meds) Frequency: Effective Now Number of Occurrences: Until Specified All Active TF Orders: Tubefeeding Orders (From admission, onward) Start Dose/Rate Route Frequency Ordered Stop 08/31/22 1745 tube feeding diet 1,320 mL 110 mL/hr Per NG tube Cyclic-(Tube feed) 08/31/22 1651 Cyclic Peptamen AF at 110ml/hr for 12hrs from 1148-8494 (see updated order above as of 5/1). [...] encounter: 64.1 kg (141 lb 5 oz). [place] Body Weight (IBW) (kg): 45.45 Usual Body [...] Assessed Needs: Fluid Requirements (mL/day): 2562 mL Shnie-Cookie Kcal / K - 1737.5 Kcal (20 [...] 08/25 r/t liquid tylenol, d/c per this principal technical writer's request as liquid tylenol acts as [...] up while inpatient Shanice Carrera RD Pager #:[phone] * Elsie Erickson, INTEGRATION PROJECT MANAGER - 09/07/2022 1:39 PM EDT Follow Up [...] deficiency anemia,??GERD??c/b??esophagitis &??Farrell's esophagus??presenting in transfer from [facility], suspected to be in cardiogenic shock and [...] of 110 mls/hr Monitoring:??Q4 Elsie Erickson APRN [facility] Endocrinology Diabetes Management Pager [phone] 20 minutes of this 35 minute visit [...] RD??c/b??esophagitis &??Farrell's esophagus, who was admitted to [facility] on 08/14/2022 (now on Hospital Day #21), [...] Molina Flores MD PCP: Chris Stanley APRN ([phone]) ID: Ishan Irving is a 62 y.o. 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 Fungus Culture & Calc Stain Bronchial Alveolar Lavage [[id number]] (Abnormal) Collected: 08/21/221649 Lab Status: Preliminary result Specimen: Bronchial Alveolar Lavage Updated: 08/24/22 1452 AFB culture Bronchial Alveolar Lavage [[id number]] Collected: 08/21/221649 Lab Status: Preliminary result Specimen: Bronchial Alveolar Lavage Updated: 08/24/22 2219 Acid Fast Bacilli Culture -- No Acid Fast Bacilli isolated to date If active tuberculosis is suspected, the patient should be on [employer] PRECAUTIONS. Call Infection Prevention for assistance if needed. Acid Fast Stain No Acid Fast Bacilli seen Fungus culture [[id number]] (Abnormal) Collected: 08/21/221649 Lab Status: Preliminary result Specimen: Bronchial Alveolar Lavage Updated: 08/24/22 145 Fungus Culture Rare Jacky albicans Calcofluor White Stain [[id number]] Collected: 08/21/221649 Lab Status: Final result Specimen: Bronchial Alveolar Lavage Updated: 08/21/222015 Calcofluor Stain Calcofluor White Preparation: Negative Lower Respiratory Culture Bronchial Alveolar Lavage [[id number]] Collected: 08/21/221644 Lab Status: Final result Specimen: Bronchial Alveolar Lavage Updated: 08/23/22 0741 Lower Respiratory Culture Rare mixed bacterial morphotypes suggestive of normal upper respiratory wiley Gram Stain -- Moderate Neutrophils seen No squamous epithelial cells seen No microorganisms seen. Fungus Culture & Calc Stain Bronchial Alveolar Lavage [[id number]] (Abnormal) Collected: 08/21/221644 Lab Status: Preliminary result Specimen: Bronchial Alveolar Lavage Updated: 08/24/22 1453 AFB culture Bronchial Alveolar Lavage [[id number]] Collected: 08/21/221644 Lab Status: Preliminary result Specimen: Bronchial Alveolar Lavage Updated: 08/24/22 2221 Acid Fast Bacilli Culture -- No Acid Fast Bacilli isolated to date If active tuberculosis is suspected, the patient should be on [employer] PRECAUTIONS. Call Infection Prevention for assistance if needed. Acid Fast Stain No Acid Fast Bacilli seen Fungus culture [[id number]] (Abnormal) Collected: 08/21/221644 Lab Status: Preliminary result Specimen: Bronchial Alveolar Lavage Updated: 08/24/22 145 Fungus Culture Rare Jacky albicans Calcofluor White Stain [[id number]] Collected: 08/21/221644 Lab Status: Final result Specimen: Bronchial Alveolar Lavage Updated: 04/14/23 2017 Calcofluor Stain Calcofluor White Preparation: Negative Blood culture [[id number]] Collected: 08/19/22 1720 Lab Status: Final result Specimen: Blood Updated: 08/24/22 2301 Blood Culture No growth at 5 days. Lower Respiratory Culture Sputum Induced [[id number]] Collected: 08/19/22 1451 Lab Status: Final result Specimen: Sputum Induced Updated: 08/21/22 0948 Lower Respiratory Culture Rare mixed bacterial morphotypes suggestive of normal upper respiratory wiley Gram Stain -- Many Neutrophils seen Few squamous epithelial cells seen No microorganisms seen. Blood culture [[id number]] Collected: 08/19/22 1330 Lab Status: Final result Specimen: Blood Updated: 08/24/22 1501 Blood Culture No growth at 5 days. Legionella Urinary Antigen [[id number]] Collected: 08/18/22 1013 Lab Status: Final result [...] Catheter Urine; Other; sepsis, bacteria on UA [[id number]] Collected: 08/15/22 1225 Lab Status: Final result Specimen: Indwelling Catheter Urine Updated: 08/16/22 0804 Urine Culture 1,000-9,000 cfu/ml Insignificant growth COVID-19 PCR [[id number]] Collected: 08/15/22 1150 Lab Status: Final result [...] using the Simplexa COVID-19 Direct Assay by [employer] as authorized by the FDA issued Emergency [...] Department of Pathology and Laboratory Medicine at [facility], certified under the Clinical Laboratory Improvement Amendments [...] fact sheets at the following FDA website: https://www.fda.gov/medical-devices/knhzmirawht-apckcrv-7717-tvbtp-58-qiatyggbp- tyr-nkeptzhqclyygx-gawxsep-devices/yjmia-savumunekbo-hivb SARS-CoV-2 Source MAINFRAME ARCHITECT Swab Lower Respiratory Culture Sputum Induced [[id number]] Collected: 08/15/22 0740 Lab Status: Final result Specimen: Sputum Induced Updated: 08/17/22 1015 Lower Respiratory Culture Rare normal upper respiratory wiley Gram Stain -- Many Neutrophils Few squamous epithelial cells Rare mixed bacterial morphotypes suggestive of normal upper respiratory wiley Blood culture [[id number]] Collected: 08/15/22 0110 Lab Status: Final result Specimen: Blood Updated: 08/20/22 0701 Blood Culture No growth at 5 days. MRSA PCR Screen ([facility]) [[id number]] Collected: 08/15/22 0050 Lab Status: Final result Specimen: Nasopharyngeal Swab Updated: 08/17/22 1419 MRSA Result Negative MRSA Interp -- Methicillin-resistant Staphylococcus aureus (MRSA) is NOT DETECTED The MRSA target DNA sequences (mec and SCC) were not detected within the acceptable ranges using the Xpert MRSA NxG on the GeneXpert Dx System (Unfold). This suggests the absence of MRSA in the patient specimen submitted for testing. This test is cleared by the U.S. Food and Drug Administration for clinical use and its performance characteristics have been verified by the [facility] at [facility]. This result does not rule out the presence of any other organisms. Rare false negative results may occur if MRSA is present at low concentrations with much higher concentrations of other organisms including MRSE or S. aureus with an empty SCC cassette. Comment: [VERIFIED DATE]08.17.22 Verified By:Shannon Smiley (Electronic Signature) Blood culture [[id number]] Collected: 08/14/22 2355 Lab Status: Final result [...] who have questions please contact the health infant childcare provider that requested your imaging first. Electronically signed by: Davi Terry MD, [facility] ([phone]), at 08/15/2022 3:53 AM XR Abdomen 1 [...] who have questions please contact the health infant childcare provider that requested your imaging first. Electronically signed by: Liliane Adams MD, [facility] ([phone]), at 08/15/2022 9:05 AM XR Chest One [...] who have questions please contact the health infant childcare provider that requested your imaging first. Electronically signed by: Davi Terry MD, [facility] ([phone]), at 08/15/2022 3:55 AM XR Abdomen 1 [...] who have questions please contact the health infant childcare provider that requested your imaging first. Electronically signed by: Davi Terry MD, [facility] ([phone]), at 08/15/2022 6:41 AM XR Chest One [...] who have questions please contact the health infant childcare provider that requested your imaging first. Electronically signed by: Alfonso Adams MD, [facility] ([phone]), at 08/16/2022 10:[address] Head wo [...] who have questions please contact the health infant childcare provider that requested your imaging first. Electronically signed by: Moustapha Correa MD, [facility] ([phone]), at 08/16/2022 11:19 PM XR Abdomen 1 [...] who have questions please contact the health infant childcare provider that requested your imaging first. Electronically signed by: Jenn Pina MD, [facility] ([phone]), at 08/17/2022 2:[address] Head wo Contrast (Generic) (Exam End: 08/18/2022 3:14 PM) Impression No acute intracranial process. Thank you for letting us participate in the care of this patient. If you are a health care provider and have any questions regarding this report, please contact the number below. For patients who have questions please contact the health infant childcare provider that requested your imaging first. Electronically signed by: Antonio Jordan MD, [facility] ([phone]), at 08/18/2022 3:18 PM XR Chest One [...] who have questions please contact the health infant childcare provider that requested your imaging first. Electronically signed by: Alan De Guzman MD, [facility] ([phone]), at 08/19/2022 3:14 PM MRI Brain wo Contrast (Exam End: 08/19/2022 10:15 PM) Impression No acute infarction, mass or mass effect. Thank you for letting us participate in the care of this patient. If you are a health care provider and have any questions regarding this report, please contact the number below. For patients who have questions please contact the health infant childcare provider that requested your imaging first. Electronically signed by: Jagdeep Lee MD, [facility] ([phone]), at 08/20/2022 3:34 AM XR Chest for [...] who have questions please contact the health infant childcare provider that requested your imaging first. Electronically signed by: Alan De Guzman MD, [facility] ([phone]), at 08/19/2022 4:[address] Hip w [...] who have questions please contact the health infant childcare provider that requested your imaging first. Electronically signed by: Aicha Chowdhury MD, [facility] ([phone]), at 08/21/2022 9:[address] Chest w [...] who have questions please contact the health infant childcare provider that requested your imaging first. Electronically signed by: Jagdeep Lee MD, [facility] ([phone]), at 08/21/2022 6:56 AM XR Hip 2-3 Views Left (Exam End: 08/22/2022 12:19 AM) Impression No radiographic evidence of infection. Thank you for letting us participate in the care of this patient. If you are a health care provider and have any questions regarding this report, please contact the number below. For patients who have questions please contact the health infant childcare provider that requested your imaging first. Electronically signed by: iVktor Cervantes MD, [facility] ([phone]), at 08/22/2022 12:43 PM XR Pelvis (Generic) (Exam End: 08/22/2022 12:19 AM) Impression No radiographic evidence of infection status post left hip ORIF. Thank you for letting us participate in the care of this patient. If you are a health care provider and have any questions regarding this report, please contact the number below. For patients who have questions please contact the health infant childcare provider that requested your imaging first. Electronically signed by: Richard Billings MD, [facility] ([phone]), at 08/22/2022 10:[address] Angiogram Coronary [...] who have questions please contact the health infant childcare provider that requested your imaging first. Electronically signed by: Arlette Mays MD, [facility] ([phone]), at 08/27/2022 11:[address] Chest wo Contrast (Generic) (Exam End: 08/27/2022 8:58 AM) Impression Stable findings of multifocal pneumonia. No interval abnormality. Thank you for letting us participate in the care of this patient. If you are a health care provider and have any questions regarding this report, please contact the number below. For patients who have questions please contact the health infant childcare provider that requested your imaging first. Electronically signed by: MINH QUIROGA MD, [facility] ([phone]), at 08/27/2022 10:48 AM XR Fluoro Barium [...] who have questions please contact the health infant childcare provider that requested your imaging first. Electronically signed by: Aron Billings MD, [facility] ([phone]), at 08/31/2022 12:02 PM XR Fluoro Barium [...] who have questions please contact the health infant childcare provider that requested your imaging first. Electronically signed by: Alfonso Adams MD, [facility] ([phone]), at 09/04/2022 10:57 AM XR Abdomen 1 [...] who have questions please contact the health infant childcare provider that requested your imaging first. Electronically signed by: Jagdeep Lee MD, [facility] ([phone]), at 09/04/2022 10:35 PM XR Chest One [...] who have questions please contact the health infant childcare provider that requested your imaging first. Electronically signed by: Jagdeep Lee MD, [facility] ([phone]), at 09/04/2022 10:35 PM XR Chest One View (Exam End: 09/05/2022 9:24 AM) Impression 1. Reposition enteric tube now extending below the diaphragm and included nxaah-xd-ugcs. 2. Similar appearance of elevated right hemidiaphragm and linear/patchy bibasilar opacities which may represent atelectasis or possibly aspiration. Thank you for letting us participate in the care of this patient. If you are a health care provider and have any questions regarding this report, please contact the number below. For patients who have questions please contact the health infant childcare provider that requested your imaging first. Electronically signed by: AUDI PERDOMO MD, [facility] ([phone]), at 09/05/2022 3:43 PM Medications: Scheduled: ??? [...] RD??c/b??esophagitis &??Farrell's esophagus, who was admitted to [facility] on [place]/2022 (now on Hospital Day #23) [...] them thatshe should continue to work with PT/OT/ELEVATOR EXAMINER/nursing but that the most recent assessments still recommended acute rehab. Today's plan: - Continue tube feeds - Diabetes Team aware and titrating insulin accordingly - IR consulted for PEG placement this week # Bipolar Disorder - Continue Seroquel 100mg nightly for now, patient and want it uptitrated before discharge - C/w valproate 300mg q6h - ELEVATOR EXAMINER following, NPO at present - Psychiatry Consult, [...] Medicine PGY1 Medicine Team: Jose Juan, Pager #[phone] Date: 09/07/2022 Associated attestation - Molina Flores [...] Richard Pascal MD PCP: Chris Stanley APRN ([phone]) ID: Ishan Irving is a 62 y.o. 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.5 years) c/b chronic pancreatitis, iron deficiency anemia, ??GERD??c/b??esophagitis &??Farrell's esophagus, who was admitted to [facility] on 08/14/2022 (now on Hospital Day #23) [...] Date/Time Lower Respiratory Culture Bronchial Alveolar Lavage [[id number]] Collected: 08/21/221649 Lab Status: Final result Specimen: Bronchial Alveolar Lavage Updated: 08/23/22 0741 Lower Respiratory Culture Rare mixed bacterial morphotypes suggestive of normal upper respiratory wiley Gram Stain -- Few Neutrophils seen No squamous epithelial cells seen No microorganisms seen. Fungus Culture & Calc Stain Bronchial Alveolar Lavage [[id number]] (Abnormal) Collected: 08/21/221649 Lab Status: Preliminary result Specimen: Bronchial Alveolar Lavage Updated: 08/24/22 1452 AFB culture Bronchial Alveolar Lavage [[id number]] Collected: 08/21/221649 Lab Status: Preliminary result Specimen: Bronchial Alveolar Lavage Updated: 08/24/22 221 Acid Fast Bacilli Culture -- No Acid Fast Bacilli isolated to date If active tuberculosis is suspected, the patient should be on [employer]. Call Infection Prevention for assistance if needed. Acid Fast Stain No Acid Fast Bacilli seen Fungus culture [[id number]] (Abnormal) Collected: 08/21/221649 Lab Status: Preliminary result Specimen: Bronchial Alveolar Lavage Updated: 08/24/22 145 Fungus Culture Rare Jacky albicans Calcofluor White Stain [[id number]] Collected: 08/21/221649 Lab Status: Final result Specimen: Bronchial Alveolar Lavage Updated: 08/21/22 2016 Calcofluor Stain Calcofluor White Preparation: Negative Lower Respiratory Culture Bronchial Alveolar Lavage [[id number]] Collected: 08/21/221644 Lab Status: Final result Specimen: Bronchial Alveolar Lavage Updated: 08/23/2241 Lower Respiratory Culture Rare mixed bacterial morphotypes suggestive of normal upper respiratory wiley Gram Stain -- Moderate Neutrophils seen No squamous epithelial cells seen No microorganisms seen. Fungus Culture & Calc Stain Bronchial Alveolar Lavage [[id number]] (Abnormal) Collected: 08/21/221644 Lab Status: Preliminary result Specimen: Bronchial Alveolar Lavage Updated: 08/24/22 1453 AFB culture Bronchial Alveolar Lavage [[id number]] Collected: 08/21/221644 Lab Status: Preliminary result Specimen: Bronchial Alveolar Lavage Updated: 08/24/22 2221 Acid Fast Bacilli Culture -- No Acid Fast Bacilli isolated to date If active tuberculosis is suspected, the patient should be on [employer]CA[employer]. Call Infection Prevention for assistance if needed. Acid Fast Stain No Acid Fast Bacilli seen Fungus culture [[id number]] (Abnormal) Collected: 08/21/22 164 Lab Status: Preliminary result Specimen: Bronchial Alveolar Lavage Updated: 08/24/22 1453 Fungus Culture Rare Jacky albicans Calcofluor White Stain [[id number]] Collected: 08/21/22 164 Lab Status: Final result Specimen: Bronchial Alveolar Lavage Updated: 08/21/22 2017 Calcofluor Stain Calcofluor White Preparation: Negative Blood culture [[id number]] Collected: 08/19/22 1720 Lab Status: Final result Specimen: Blood Updated: 08/24/22 2301 Blood Culture No growth at 5 days. Lower Respiratory Culture Sputum Induced [[id number]] Collected: 08/19/22 1451 Lab Status: Final result Specimen: Sputum Induced Updated: 08/21/22 0948 Lower Respiratory Culture Rare mixed bacterial morphotypes suggestive of normal upper respiratory wiley Gram Stain -- Many Neutrophils seen Few squamous epithelial cells seen No microorganisms seen. Blood culture [[id number]] Collected: 08/19/22 1330 Lab Status: Final result Specimen: Blood Updated: 08/24/22 1501 Blood Culture No growth at 5 days. Legionella Urinary Antigen [[id number]] Collected: 08/18/22 1013 Lab Status: Final result [...] Catheter Urine; Other; sepsis, bacteria on UA [[id number]] Collected: 08/15/22 1225 Lab Status: Final result Specimen: Indwelling Catheter Urine Updated: 08/16/22 0804 Urine Culture 1,000-9,000 cfu/ml Insignificant growth COVID-19 PCR [[id number]] Collected: 08/15/22 1150 Lab Status: Final result [...] using the Simplexa COVID-19 Direct Assay by [employer] as authorized by the FDA issued Emergency [...] Department of Pathology and Laboratory Medicine at [facility], certified under the Clinical Laboratory Improvement Amendments [...] fact sheets at the following FDA website: https://www.fda.gov/medical-devices/luktjvxmzri-qnbifja-1330-fglsi-43-zthyhxptm- hqe-odnhuixejlcyzh-hqkbqol-devices/efimk-bxqzpsdzmof-ztkx SARS-CoV-2 Source MAINFRAME ARCHITECT Swab Lower Respiratory Culture Sputum Induced [[id number]] Collected: 04/08/23 0740 Lab Status: Final result Specimen: Sputum Induced Updated: 08/17/22 1015 Lower Respiratory Culture Rare normal upper respiratory wiley Gram Stain -- Many Neutrophils Few squamous epithelial cells Rare mixed bacterial morphotypes suggestive of normal upper respiratory wiley Blood culture [[id number]] Collected: 08/15/22 0110 Lab Status: Final result Specimen: Blood Updated: 08/20/22 0701 Blood Culture No growth at 5 days. MRSA PCR Screen ([facility]D/[facility]H) [[id number]] Collected: 08/15/22 0050 Lab Status: Final result Specimen: Nasopharyngeal Swab Updated: 08/17/22 1419 MRSA Result Negative MRSA Interp -- Methicillin-resistant Staphylococcus aureus (MRSA) is NOT DETECTED The MRSA target DNA sequences (mec and SCC) were not detected within the acceptable ranges using the Xpert MRSA NxG on the GeneXpert Dx System (Unfold). This suggests the absence of MRSA in the patient specimen submitted for testing. This test is cleared by the U.S. Food and Drug Administration for clinical use and its performance characteristics have been verified by the [facility] at [facility]. This result does not rule out the presence of any other organisms. Rare false negative results may occur if MRSA is present at low concentrations with much higher concentrations of other organisms including MRSE or S. aureus with an empty SCC cassette. Comment: [VERIFIED DATE]08.17.22 Verified By:Shannon Smiley (Electronic Signature) Blood culture [[id number]] Collected: 08/14/22 2355 Lab Status: Final result [...] who have questions please contact the health infant childcare provider that requested your imaging first. Electronically signed by: Davi Terry MD, [facility] ([phone]), at 08/15/2022 3:53 AM XR Abdomen 1 [...] who have questions please contact the health infant childcare provider that requested your imaging first. Electronically signed by: Liliane Adams MD, [facility] ([phone]), at 08/15/2022 9:05 AM XR Chest One [...] who have questions please contact the health infant childcare provider that requested your imaging first. Electronically signed by: Davi Terry MD, [facility] ([phone]), at 08/15/2022 3:55 AM XR Abdomen 1 [...] who have questions please contact the health infant childcare provider that requested your imaging first. Electronically signed by: Davi Terry MD, [facility] ([phone]), at 08/15/2022 6:41 AM XR Chest One [...] who have questions please contact the health infant childcare provider that requested your imaging first. Electronically signed by: Alfonso Adams MD, [facility] ([phone]), at 08/16/2022 10:[address] Head wo [...] who have questions please contact the health infant childcare provider that requested your imaging first. Electronically signed by: Moustapha Correa MD, [facility] ([phone]), at 08/16/2022 11:19 PM XR Abdomen 1 [...] who have questions please contact the health infant childcare provider that requested your imaging first. Electronically signed by: Jenn Pina MD, [facility] ([phone]), at 08/17/2022 2:[address] Head wo Contrast (Generic) (Exam End: 08/18/2022 3:14 PM) Impression No acute intracranial process. Thank you for letting us participate in the care of this patient. If you are a health care provider and have any questions regarding this report, please contact the number below. For patients who have questions please contact the health infant childcare provider that requested your imaging first. Electronically signed by: Antonio Jordan MD, [facility] ([phone]), at 08/18/2022 3:18 PM XR Chest One [...] who have questions please contact the health infant childcare provider that requested your imaging first. Electronically signed by: Alan De Guzman MD, [facility] ([phone]), at 08/19/2022 3:14 PM MRI Brain wo Contrast (Exam End: 08/19/2022 10:15 PM) Impression No acute infarction, mass or mass effect. Thank you for letting us participate in the care of this patient. If you are a health care provider and have any questions regarding this report, please contact the number below. For patients who have questions please contact the health infant childcare provider that requested your imaging first. Electronically signed by: Jagdeep Lee MD, [facility] ([phone]), at 08/20/2022 3:34 AM XR Chest for [...] who have questions please contact the health infant childcare provider that requested your imaging first. Electronically signed by: Alan De Guzman MD, [facility] ([phone]), at 08/19/2022 4:[address] Hip w [...] who have questions please contact the health infant childcare provider that requested your imaging first. Electronically signed by: Aicha Chowdhury MD, [facility] ([phone]), at 08/21/2022 9:[address] Chest w [...] who have questions please contact the health infant childcare provider that requested your imaging first. Electronically signed by: Jagdeep Lee MD, [facility] ([phone]), at 08/21/2022 6:56 AM XR Hip 2-3 Views Left (Exam End: 08/22/2022 12:19 AM) Impression No radiographic evidence of infection. Thank you for letting us participate in the care of this patient. If you are a health care provider and have any questions regarding this report, please contact the number below. For patients who have questions please contact the health infant childcare provider that requested your imaging first. Electronically signed by: Viktor Cervantes MD, [facility] ([phone]), at 08/22/2022 12:43 PM XR Pelvis (Generic) (Exam End: 08/22/2022 12:19 AM) Impression No radiographic evidence of infection status post left hip ORIF. Thank you for letting us participate in the care of this patient. If you are a health care provider and have any questions regarding this report, please contact the number below. For patients who have questions please contact the health infant childcare provider that requested your imaging first. Electronically signed by: Richard Billings MD, [facility] ([phone]), at 08/22/2022 10:[address] Angiogram Coronary [...] who have questions please contact the health infant childcare provider that requested your imaging first. Electronically signed by: Arlette Mays MD, [facility] ([phone]), at 08/27/2022 11:[address] Chest wo Contrast (Generic) (Exam End: 08/27/2022 8:58 AM) Impression Stable findings of multifocal pneumonia. No interval abnormality. Thank you for letting us participate in the care of this patient. If you are a health care provider and have any questions regarding this report, please contact the number below. For patients who have questions please contact the health infant childcare provider that requested your imaging first. Electronically signed by: MINH QUIROGA MD, [facility] ([phone]), at 08/27/2022 10:48 AM XR Fluoro Barium [...] who have questions please contact the health infant childcare provider that requested your imaging first. Electronically signed by: Aron Billings MD, [facility] ([phone]), at 08/31/2022 12:02 PM XR Fluoro Barium [...] who have questions please contact the health infant childcare provider that requested your imaging first. Electronically signed by: Alfonso Adams MD, [facility] ([phone]), at 09/04/2022 10:57 AM XR Abdomen 1 [...] who have questions please contact the health infant childcare provider that requested your imaging first. Electronically signed by: Jagdeep Lee MD, [facility] ([phone]), at 09/04/2022 10:35 PM XR Chest One [...] who have questions please contact the health infant childcare provider that requested your imaging first. Electronically signed by: Jagdeep Lee MD, [facility] ([phone]), at 09/04/2022 10:35 PM XR Chest One View (Exam End: 09/05/2022 9:24 AM) Impression 1. Reposition enteric tube now extending below the diaphragm and included etidv-rd-outx. 2. Similar appearance of elevated right hemidiaphragm and linear/patchy bibasilar opacities which may represent atelectasis or possibly aspiration. Thank you for letting us participate in the care of this patient. If you are a health care provider and have any questions regarding this report, please contact the number below. For patients who have questions please contact the health infant childcare provider that requested your imaging first. Electronically signed by: AUDI PERDOMO MD, [facility] ([phone]), at 09/05/2022 3:43 PM Medications: Scheduled: ??? [...] RD??c/b??esophagitis &??Farrell's esophagus, who was admitted to [facility] on 08/14/2022 (now on Hospital Day #23) [...] that she should continue to work with PT/OT/ELEVATOR EXAMINER/nursing but that the most recent assessments still recommended acute rehab. Today's plan: - Tube feeds at goal - Diabetes Team aware and titrating insulin accordingly - bridle NG tube to ensure do not need to replace NG before PEG # Bipolar Disorder - Continue Seroquel 100mg nightly - C/w valproate 300mg q6h > level 25mg/L 08/29 - ELEVATOR EXAMINER following, NPO at present - Psychiatry Consult, [...] Medicine PGY2 Medicine Team: Jose Juan, Pager #[phone] Date: 09/06/2022 Associated attestation - Richard Pascal [...] study was performed by an ultrasound credentialed [facility] medicine physician. These images were archived digitally in [employer] and I independently interpreted the images at [...] RD??c/b??esophagitis &??Farrell's esophagus, who was admitted to [facility] on 08/14/2022 (now on Hospital Day #21), [...] Richard Pascal MD PCP: Chris Stanley APRN ([phone]) No chief complaint on file. ID: Ishan Irving is a 62 y.o. 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.5 years) c/b chronic pancreatitis, iron deficiency anemia, ??GERD??c/b??esophagitis &??Farrell's esophagus, who was admitted to [facility] on 08/14/2022 (now on Hospital Day #22), [...] Gas): No results found for: PHART, PO2ART, DFN6RAZ, DLW9HFM VBG (Venous Blood Gas): No results for input(s): PHVEN, EPF1PGO, PO2VEN, JTI4BBO, BEVEN, PXS5TTT in the last 72 hours. EKG: Lab [...] Date/Time Lower Respiratory Culture Bronchial Alveolar Lavage [[id number]] Collected: 08/21/221649 Lab Status: Final result Specimen: Bronchial Alveolar Lavage Updated: 08/23/22 0741 Lower Respiratory Culture Rare mixed bacterial morphotypes suggestive of normal upper respiratory wiley Gram Stain -- Few Neutrophils seen No squamous epithelial cells seen No microorganisms seen. Fungus Culture & Calc Stain Bronchial Alveolar Lavage [[id number]] (Abnormal) Collected: 08/21/221649 Lab Status: Preliminary result Specimen: Bronchial Alveolar Lavage Updated: 08/24/22 145 AFB culture Bronchial Alveolar Lavage [[id number]] Collected: 08/21/221649 Lab Status: Preliminary result Specimen: Bronchial Alveolar Lavage Updated: 08/24/22 2219 Acid Fast Bacilli Culture -- No Acid Fast Bacilli isolated to date If active tuberculosis is suspected, the patient should be on [employer] PRECAUTIONS. Call Infection Prevention for assistance if needed. Acid Fast Stain No Acid Fast Bacilli seen Fungus culture [[id number]] (Abnormal) Collected: 08/21/221649 Lab Status: Preliminary result Specimen: Bronchial Alveolar Lavage Updated: 08/24/22 145 Fungus Culture Rare Jacky albicans Calcofluor White Stain [[id number]] Collected: 08/21/221649 Lab Status: Final result Specimen: Bronchial Alveolar Lavage Updated: 08/21/222015 Calcofluor Stain Calcofluor White Preparation: Negative Lower Respiratory Culture Bronchial Alveolar Lavage [[id number]] Collected: 08/21/221644 Lab Status: Final result Specimen: Bronchial Alveolar Lavage Updated: 08/23/2241 Lower Respiratory Culture Rare mixed bacterial morphotypes suggestive of normal upper respiratory wiley Gram Stain -- Moderate Neutrophils seen No squamous epithelial cells seen No microorganisms seen. Fungus Culture & Calc Stain Bronchial Alveolar Lavage [[id number]] (Abnormal) Collected: 08/21/221644 Lab Status: Preliminary result Specimen: Bronchial Alveolar Lavage Updated: 08/24/22 1453 AFB culture Bronchial Alveolar Lavage [[id number]] Collected: 08/21/221644 Lab Status: Preliminary result Specimen: Bronchial Alveolar Lavage Updated: 08/24/222220 Acid Fast Bacilli Culture -- No Acid Fast Bacilli isolated to date If active tuberculosis is suspected, the patient should be on [employer]NE PRECAUTIONS. Call Infection Prevention for assistance if needed. Acid Fast Stain No Acid Fast Bacilli seen Fungus culture [[id number]] (Abnormal) Collected: 08/21/22 1645 Lab Status: Preliminary result Specimen: Bronchial Alveolar Lavage Updated: 08/24/22 1453 Fungus Culture Rare Jacky albicans Calcofluor White Stain [[id number]] Collected: 08/21/22 164 Lab Status: Final result Specimen: Bronchial Alveolar Lavage Updated: 08/21/22 2017 Calcofluor Stain Calcofluor White Preparation: Negative Blood culture [[id number]] Collected: 08/19/22 1720 Lab Status: Final result Specimen: Blood Updated: 08/24/22 2301 Blood Culture No growth at 5 days. Lower Respiratory Culture Sputum Induced [[id number]] Collected: 08/19/22 1451 Lab Status: Final result Specimen: Sputum Induced Updated: 08/21/22 0948 Lower Respiratory Culture Rare mixed bacterial morphotypes suggestive of normal upper respiratory wiley Gram Stain -- Many Neutrophils seen Few squamous epithelial cells seen No microorganisms seen. Blood culture [[id number]] Collected: 08/19/22 1330 Lab Status: Final result Specimen: Blood Updated: 08/24/22 1501 Blood Culture No growth at 5 days. Legionella Urinary Antigen [[id number]] Collected: 08/18/22 1013 Lab Status: Final result [...] Catheter Urine; Other; sepsis, bacteria on UA [[id number]] Collected: 08/15/22 1225 Lab Status: Final result Specimen: Indwelling Catheter Urine Updated: 08/16/22 0804 Urine Culture 1,000-9,000 cfu/ml Insignificant growth COVID-19 PCR [[id number]] Collected: 08/15/22 1150 Lab Status: Final result [...] using the Simplexa COVID-19 Direct Assay by [employer] as authorized by the FDA issued Emergency [...] Department of Pathology and Laboratory Medicine at [facility], certified under the Clinical Laboratory Improvement Amendments [...] fact sheets at the following FDA website: https://www.fda.gov/medical-devices/hbrembapztf-flmphrd-2101-isglc-20-zyegwsgfu- zky-vdhmqmgecfjkor-bzpetwi-devices/xipeb-thqwwatsyvf-ackj SARS-CoV-2 Source MAINFRAME ARCHITECT Swab Lower Respiratory Culture Sputum Induced [[id number]] Collected: 08/15/22 0740 Lab Status: Final result Specimen: Sputum Induced Updated: 08/17/22 1015 Lower Respiratory Culture Rare normal upper respiratory wiley Gram Stain -- Many Neutrophils Few squamous epithelial cells Rare mixed bacterial morphotypes suggestive of normal upper respiratory wiley Blood culture [[id number]] Collected: 08/15/22 0110 Lab Status: Final result Specimen: Blood Updated: 08/20/22 0701 Blood Culture No growth at 5 days. MRSA PCR Screen ([facility]/CGP/APD/NLH) [[id number]] Collected: 08/15/22 0050 Lab Status: Final result Specimen: Nasopharyngeal Swab Updated: 08/17/22 1419 MRSA Result Negative MRSA Interp -- Methicillin-resistant Staphylococcus aureus (MRSA) is NOT DETECTED The MRSA target DNA sequences (mec and SCC) were not detected within the acceptable ranges using the Xpert MRSA NxG on the GeneXpert Dx System (Unfold). This suggests the absence of MRSA in the patient specimen submitted for testing. This test is cleared by the U.S. Food and Drug Administration for clinical use and its performance characteristics have been verified by the [facility] at [facility]. This result does not rule out the presence of any other organisms. Rare false negative results may occur if MRSA is present at low concentrations with much higher concentrations of other organisms including MRSE or S. aureus with an empty SCC cassette. Comment: [VERIFIED DATE]08.17.22 Verified By:Shannon Smiley (Electronic Signature) Blood culture [[id number]] Collected: 08/14/22 2355 Lab Status: Final result [...] who have questions please contact the health infant childcare provider that requested your imaging first. Electronically signed by: Davi Terry MD, [facility] ([phone]), at 08/15/2022 3:53 AM XR Abdomen 1 [...] who have questions please contact the health infant childcare provider that requested your imaging first. Electronically signed by: Liliane Adams MD, [facility] ([phone]), at 08/15/2022 9:05 AM XR Chest One [...] who have questions please contact the health infant childcare provider that requested your imaging first. Electronically signed by: Davi Terry MD, [facility] ([phone]), at 08/15/2022 3:55 AM XR Abdomen 1 [...] who have questions please contact the health infant childcare provider that requested your imaging first. Electronically signed by: Davi Terry MD, [facility] ([phone]), at 08/15/2022 6:41 AM XR Chest One [...] who have questions please contact the health infant childcare provider that requested your imaging first. Electronically signed by: Alfonso Adams MD, [facility] ([phone]), at 08/16/2022 10:[address] Head wo [...] who have questions please contact the health infant childcare provider that requested your imaging first. Electronically signed by: Moustapha Correa MD, [facility] ([phone]), at 08/16/2022 11:19 PM XR Abdomen 1 [...] who have questions please contact the health infant childcare provider that requested your imaging first. Electronically signed by: Jenn Pina MD, [facility] ([phone]), at 08/17/2022 2:[address] Head wo Contrast (Generic) (Exam End: 08/18/2022 3:14 PM) Impression No acute intracranial process. Thank you for letting us participate in the care of this patient. If you are a health care provider and have any questions regarding this report, please contact the number below. For patients who have questions please contact the health infant childcare provider that requested your imaging first. Electronically signed by: Antonio Jordan MD, [facility] ([phone]), at 08/18/2022 3:18 PM XR Chest One [...] who have questions please contact the health infant childcare provider that requested your imaging first. Electronically signed by: Alan De Guzman MD, [facility] ([phone]), at 08/19/2022 3:14 PM MRI Brain wo Contrast (Exam End: 08/19/2022 10:15 PM) Impression No acute infarction, mass or mass effect. Thank you for letting us participate in the care of this patient. If you are a health care provider and have any questions regarding this report, please contact the number below. For patients who have questions please contact the health infant childcare provider that requested your imaging first. Electronically signed by: Jagdeep Lee MD, [facility] ([phone]), at 08/20/2022 3:34 AM XR Chest for [...] who have questions please contact the health infant childcare provider that requested your imaging first. Electronically signed by: Alan De Guzman MD, [facility] ([phone]), at 08/19/2022 4:[address] Hip w [...] who have questions please contact the health infant childcare provider that requested your imaging first. Electronically signed by: Aicha Chowdhury MD, [facility] ([phone]), at 08/21/2022 9:[address] Chest w [...] who have questions please contact the health infant childcare provider that requested your imaging first. Electronically signed by: Jagdeep Lee MD, [facility] ([phone]), at 08/21/2022 6:56 AM XR Hip 2-3 Views Left (Exam End: 08/22/2022 12:19 AM) Impression No radiographic evidence of infection. Thank you for letting us participate in the care of this patient. If you are a health care provider and have any questions regarding this report, please contact the number below. For patients who have questions please contact the health infant childcare provider that requested your imaging first. Electronically signed by: Viktor Cervantes MD, [facility] ([phone]), at 08/22/2022 12:43 PM XR Pelvis (Generic) (Exam End: 08/22/2022 12:19 AM) Impression No radiographic evidence of infection status post left hip ORIF. Thank you for letting us participate in the care of this patient. If you are a health care provider and have any questions regarding this report, please contact the number below. For patients who have questions please contact the health infant childcare provider that requested your imaging first. Electronically signed by: Richard Billings MD, [facility] ([phone]), at 08/22/2022 10:[address] Angiogram Coronary [...] who have questions please contact the health infant childcare provider that requested your imaging first. Electronically signed by: Arlette Mays MD, [facility] ([phone]), at 08/27/2022 11:[address] Chest wo Contrast (Generic) (Exam End: 08/27/2022 8:58 AM) Impression Stable findings of multifocal pneumonia. No interval abnormality. Thank you for letting us participate in the care of this patient. If you are a health care provider and have any questions regarding this report, please contact the number below. For patients who have questions please contact the health infant childcare provider that requested your imaging first. Electronically signed by: MINH QUIROGA MD, [facility] ([phone]), at 08/27/2022 10:48 AM XR Fluoro Barium [...] who have questions please contact the health infant childcare provider that requested your imaging first. Electronically signed by: Aron Billings MD, [facility] ([phone]), at 08/31/2022 12:02 PM XR Fluoro Barium [...] who have questions please contact the health infant childcare provider that requested your imaging first. Electronically signed by: Alfonso Adams MD, [facility] ([phone]), at 09/04/2022 10:57 AM XR Abdomen 1 [...] who have questions please contact the health infant childcare provider that requested your imaging first. Electronically signed by: Jagdeep Lee MD, [facility] ([phone]), at 09/04/2022 10:35 PM XR Chest One [...] who have questions please contact the health infant childcare provider that requested your imaging first. Electronically signed by: Jagdeep Lee MD, [facility] ([phone]), at 09/04/2022 10:35 PM Medications: Scheduled: ??? [...] anemia,??GERD??c/b??esophagitis &??Farrell's esophagus, who was admitted to [facility] on 08/14/2022 (now on Hospital Day #22) [...] level 08/29. - level 25mg/L 08/29 - ELEVATOR EXAMINER to evaluate, Recommend NPO at present - [...] Medicine PGY1 Medicine Team: Jose Juan, Pager #[phone] Date: 09/05/2022 Associated attestation - Richard Pascal [...] in the recent past. * Elsie Erickson, INTEGRATION PROJECT MANAGER - 09/05/2022 7:10 AM EDT Follow Up [...] deficiency anemia,??GERD??c/b??esophagitis &??Farrell's esophagus??presenting in transfer from [facility], suspected to be in cardiogenic shock and [...] of 110 mls/hr Monitoring:??Q4 Elsie Erickson APRN [facility] Endocrinology Diabetes Management Pager [phone] minutes of this 35 minute visit was spent with the patient in counseling on diabetes and treatment plan, reviewing all glucose and insulin data as well as relevant laboratory results with the patient, and coordination of care on the inpatient unit including nursing and primary team. * Feroz Portillo, CLINICAL SALES CONSULTANT - 09/04/2022 1:50 PM EDT Physical Therapy [...] deficiency anemia,??GERD??c/b??esophagitis &??Farrell's esophagus??presenting in transfer from [facility], suspected to be in cardiogenic shock and [...] TE-F x 3 FEROZ PORTILLO PTA Pager: [phone] Physical Therapy Inpatient Rehabilitation Department * Micheline Long, ELEVATOR EXAMINER - 09/04/2022 9:48 AM EDT Speech-Language Pathology Modified Barium Swallow Re-Evaluation ?? Patient Profile:??Ishan Irving is a 62 year old female with a medical history notable for??recent L femoral neck fracture,??bipolar disorder, resolving medication-induced Parkinsonism, insulin-dependent diabetes mellitus,??hx of alcohol use disorder (reported to be in remission for 1.5 years)c/b chronic pancreatitis, iron deficiency anemia,??GERD??c/b??esophagitis &??Farrell's esophagus??presenting in transfer from [facility]??on 08/14/2022, suspected to be in cardiogenic shock and found to be in mixed shock with concern for stress cardiomyopathy.??ELEVATOR EXAMINER service was consulted to assess oropharyngeal swallow [...] nutrition/hydration to provide nutrition during rehab course. ELEVATOR EXAMINER will f/u for ongoing swallow intervention and [...] dependent Cognitive-Linguistic Status: delayed processing per primary ELEVATOR EXAMINER; Pt presented today with a flat affect, [...] Presentation(s): (all mixed with Barium) Thin liquid [place] consistency thickened liquid Puree Regular consistency Oral [...] head in the, Thin liquid: pyriform sinuses [place] thick liquid: valleculae Puree: valleculae Regular: valleculae [...] penetration, via straw (sequential sips)- audible aspiration [place] thick liquids: via straw (single and sequential [...] of alertness and/or delirium Advanced age Education: ELEVATOR EXAMINER informed pt that she would return to talk to her about the results and updated recommendations. Results and recommendations relayed to Irwin Jones MD via secure chat. Addendum: ELEVATOR EXAMINER returned to pt's room at 1230 to [...] agreement with the treatment plan and informed ELEVATOR EXAMINER of her continued goal to resume consuming [...] this regurgitation was also witnessed by primary ELEVATOR EXAMINER Petty Mccullough in the most recent treatment session and was reported to the primary ELEVATOR EXAMINER to be consistent with her baseline for [...] with trials of nectar thick liquids with ELEVATOR EXAMINER only. As pt's mental status continues to improve, she may benefit from swallow exercises targeting the pharyngeal phase of the swallow. However, swallow safety and efficiency appear significantly impacted by the esophageal phase of the swallow. Pt will require alternative means of nutrition to meet nutritional needs. Pt would benefit from skilled ELEVATOR EXAMINER services to maximize swallow function and safety to address limitations as noted above. Primary ELEVATOR EXAMINER Petty Mccullough will continue to follow. Diagnosis: [...] in ongoing cognitive-linguistic evaluation. Plan: Therapy Frequency (ELEVATOR EXAMINER Eval): 3-5x/wk Pt unable to give informed agreement with plan at this time due to decreased MS. Total Minutes (Speech Language Pathology): 30 Thank you for this consult with this patient. Please feel free to page me with any questions or concerns. Micheline Long, MS, [facility]-ELEVATOR EXAMINER Speech-Language Pathologist Pager # [phone] * Alla [...] Tenisha Sandy MD PCP: Chris Stanley APRN ([phone]) No chief complaint on file. ID: Ishan Irving is a 62 y.o. 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.5 years) c/b chronic pancreatitis, iron deficiency anemia, ??GERD??c/b??esophagitis &??Farrell's esophagus, who was admitted to [facility] on 08/14/2022 (now on Hospital Day #21), and transferred to Hospital Medicine team from Cardiology on 08/30 for mixed shock with concern for stress cardiomyopathy (Takotsubo Cardiomyopathy). 24 HOUR EVENTS & SUBJECTIVE: Yesterday: - ELEVATOR EXAMINER evaluated, NPO, ice chips for pleasure recommended yesterday, plan for MBS without FT tomorrow - Palliative Care consulted and met with patient - OT met with patient, recommend acute rehab facility - Psych met with patient, recommended continuing once daily dosing of Bupropion IR - GI consulted and recommends patient continue working w/ELEVATOR EXAMINER, can consider PEG if inadequate improvement - [...] Gas): No results found for: PHART, PO2ART, THC8SBR, PUU3MWY VBG (Venous Blood Gas): No results for input(s): PHVEN, GLR0KTA, PO2VEN, YPI3PEI, BEVEN, EDS7VDG in the last 72 hours. EKG: Lab [...] Date/Time Lower Respiratory Culture Bronchial Alveolar Lavage [[id number]] Collected: 08/21/221649 Lab Status: Final result Specimen: Bronchial Alveolar Lavage Updated: 08/23/22 0741 Lower Respiratory Culture Rare mixed bacterial morphotypes suggestive of normal upper respiratory wiley Gram Stain -- Few Neutrophils seen No squamous epithelial cells seen No microorganisms seen. Fungus Culture & Calc Stain Bronchial Alveolar Lavage [[id number]] (Abnormal) Collected: 08/21/221649 Lab Status: Preliminary result Specimen: Bronchial Alveolar Lavage Updated: 08/24/22 145 AFB culture Bronchial Alveolar Lavage [[id number]] Collected: 08/21/221649 Lab Status: Preliminary result Specimen: Bronchial Alveolar Lavage Updated: 08/24/22 221 Acid Fast Bacilli Culture -- No Acid Fast Bacilli isolated to date If active tuberculosis is suspected, the patient should be on [employer] PRECAUTIONS. Call Infection Prevention for assistance if needed. Acid Fast Stain No Acid Fast Bacilli seen Fungus culture [[id number]] (Abnormal) Collected: 08/21/221649 Lab Status: Preliminary result Specimen: Bronchial Alveolar Lavage Updated: 08/24/22 145 Fungus Culture Rare Jacky albicans Calcofluor White Stain [[id number]] Collected: 08/21/221649 Lab Status: Final result Specimen: Bronchial Alveolar Lavage Updated: 08/21/22 2016 Calcofluor Stain Calcofluor White Preparation: Negative Lower Respiratory Culture Bronchial Alveolar Lavage [[id number]] Collected: 04/14/23 1645 Lab Status: Final result Specimen: Bronchial Alveolar Lavage Updated: 08/23/22 0741 Lower Respiratory Culture Rare mixed bacterial morphotypes suggestive of normal upper respiratory wiley Gram Stain -- Moderate Neutrophils seen No squamous epithelial cells seen No microorganisms seen. Fungus Culture & Calc Stain Bronchial Alveolar Lavage [[id number]] (Abnormal) Collected: 08/21/22 164 Lab Status: Preliminary result Specimen: Bronchial Alveolar Lavage Updated: 08/24/22 1453 AFB culture Bronchial Alveolar Lavage [[id number]] Collected: 08/21/221644 Lab Status: Preliminary result Specimen: Bronchial Alveolar Lavage Updated: 08/24/22 2221 Acid Fast Bacilli Culture -- No Acid Fast Bacilli isolated to date If active tuberculosis is suspected, the patient should be on [employer] PRECAUTIONS. Call Infection Prevention for assistance if needed. Acid Fast Stain No Acid Fast Bacilli seen Fungus culture [[id number]] (Abnormal) Collected: 08/21/221644 Lab Status: Preliminary result Specimen: Bronchial Alveolar Lavage Updated: 08/24/22 1453 Fungus Culture Rare Jacky albicans Calcofluor White Stain [[id number]] Collected: 08/21/221644 Lab Status: Final result Specimen: Bronchial Alveolar Lavage Updated: 08/21/22 2017 Calcofluor Stain Calcofluor White Preparation: Negative Blood culture [[id number]] Collected: 08/19/22 1720 Lab Status: Final result Specimen: Blood Updated: 08/24/22 2301 Blood Culture No growth at 5 days. Lower Respiratory Culture Sputum Induced [[id number]] Collected: 08/19/22 1451 Lab Status: Final result Specimen: Sputum Induced Updated: 08/21/22 0948 Lower Respiratory Culture Rare mixed bacterial morphotypes suggestive of normal upper respiratory wiley Gram Stain -- Many Neutrophils seen Few squamous epithelial cells seen No microorganisms seen. Blood culture [[id number]] Collected: 08/19/22 1330 Lab Status: Final result Specimen: Blood Updated: 08/24/22 1501 Blood Culture No growth at 5 days. Legionella Urinary Antigen [[id number]] Collected: 08/18/22 1013 Lab Status: Final result [...] Catheter Urine; Other; sepsis, bacteria on UA [[id number]] Collected: 08/15/22 1225 Lab Status: Final result Specimen: Indwelling Catheter Urine Updated: 08/16/22 0804 Urine Culture 1,000-9,000 cfu/ml Insignificant growth COVID-19 PCR [[id number]] Collected: 08/15/22 1150 Lab Status: Final result [...] using the Simplexa COVID-19 Direct Assay by [employer] as authorized by the FDA issued Emergency [...] Department of Pathology and Laboratory Medicine at [facility], certified under the Clinical Laboratory Improvement Amendments [...] fact sheets at the following FDA website: https://www.fda.gov/medical-devices/dduqsnvglej-xawmrpr-3242-gwqby-75-qgdrudqms- czj-zxptmagrjwhsmx-ewrfyck-devices/jcrsz-whdahsiuyiw-ufxm SARS-CoV-2 Source MAINFRAME ARCHITECT Swab Lower Respiratory Culture Sputum Induced [[id number]] Collected: 08/15/22 0740 Lab Status: Final result Specimen: Sputum Induced Updated: 08/17/22 1015 Lower Respiratory Culture Rare normal upper respiratory wiley Gram Stain -- Many Neutrophils Few squamous epithelial cells Rare mixed bacterial morphotypes suggestive of normal upper respiratory wiley Blood culture [[id number]] Collected: 08/15/22 0110 Lab Status: Final result Specimen: Blood Updated: 08/20/22 0701 Blood Culture No growth at 5 days. MRSA PCR Screen ([facility]) [[id number]] Collected: 08/15/22 0050 Lab Status: Final result Specimen: Nasopharyngeal Swab Updated: 08/17/22 1419 MRSA Result Negative MRSA Interp -- Methicillin-resistant Staphylococcus aureus (MRSA) is NOT DETECTED The MRSA target DNA sequences (mec and SCC) were not detected within the acceptable ranges using the Xpert MRSA NxG on the GeneXpert Dx System (Unfold). This suggests the absence of MRSA in the patient specimen submitted for testing. This test is cleared by the U.S. Food and Drug Administration for clinical use and its performance characteristics have been verified by the [facility] at [facility]. This result does not rule out the presence of any other organisms. Rare false negative results may occur if MRSA is present at low concentrations with much higher concentrations of other organisms including MRSE or S. aureus with an empty SCC cassette. Comment: [VERIFIED DATE]08.17.22 Verified By:Shannon Smiley (Electronic Signature) Blood culture [[id number]] Collected: 08/14/22 1979 Lab Status: Final result Specimen: Blood Updated: [...] who have questions please contact the health infant childcare provider that requested your imaging first. Electronically signed by: Davi Terry MD, [facility] ([phone]), at 08/15/2022 3:53 AM XR Abdomen 1 [...] who have questions please contact the health infant childcare provider that requested your imaging first. Electronically signed by: Liliane Adams MD, [facility] ([phone]), at 08/15/2022 9:05 AM XR Chest One [...] who have questions please contact the health infant childcare provider that requested your imaging first. Electronically signed by: Davi Terry MD, [facility] ([phone]), at 08/15/2022 3:55 AM XR Abdomen 1 [...] who have questions please contact the health infant childcare provider that requested your imaging first. Electronically signed by: Davi Terry MD, [facility] ([phone]), at 08/15/2022 6:41 AM XR Chest One [...] who have questions please contact the health infant childcare provider that requested your imaging first. Electronically signed by: Alfonso Adams MD, [facility] ([phone]), at 08/16/2022 10:[address] Head wo [...] who have questions please contact the health infant childcare provider that requested your imaging first. Electronically signed by: Moustapha Correa MD, [facility] ([phone]), at 08/16/2022 11:19 PM XR Abdomen 1 [...] who have questions please contact the health infant childcare provider that requested your imaging first. Electronically signed by: Jenn Pina MD, [facility] ([phone]), at 08/17/2022 2:[address] Head wo Contrast (Generic) (Exam End: 08/18/2022 3:14 PM) Impression No acute intracranial process. Thank you for letting us participate in the care of this patient. If you are a health care provider and have any questions regarding this report, please contact the number below. For patients who have questions please contact the health infant childcare provider that requested your imaging first. Electronically signed by: Antonio Jordan MD, [facility] ([phone]), at 08/18/2022 3:18 PM XR Chest One [...] who have questions please contact the health infant childcare provider that requested your imaging first. Electronically signed by: Alan De Guzman MD, [facility] ([phone]), at 08/19/2022 3:14 PM MRI Brain wo Contrast (Exam End: 08/19/2022 10:15 PM) Impression No acute infarction, mass or mass effect. Thank you for letting us participate in the care of this patient. If you are a health care provider and have any questions regarding this report, please contact the number below. For patients who have questions please contact the health infant childcare provider that requested your imaging first. Electronically signed by: Jagdeep Lee MD, [facility] ([phone]), at 08/20/2022 3:34 AM XR Chest for [...] who have questions please contact the health infant childcare provider that requested your imaging first. Electronically signed by: Alan De Guzman MD, [facility] ([phone]), at 08/19/2022 4:[address] Hip w [...] who have questions please contact the health infant childcare provider that requested your imaging first. Electronically signed by: Aicha Chowdhury MD, [facility] ([phone]), at 08/21/2022 9:[address] Chest w [...] who have questions please contact the health infant childcare provider that requested your imaging first. Electronically signed by: Jagdeep Lee MD, [facility] ([phone]), at 08/21/2022 6:56 AM XR Hip 2-3 Views Left (Exam End: 08/22/2022 12:19 AM) Impression No radiographic evidence of infection. Thank you for letting us participate in the care of this patient. If you are a health care provider and have any questions regarding this report, please contact the number below. For patients who have questions please contact the health infant childcare provider that requested your imaging first. Electronically signed by: Viktor Cervantes MD, [facility] ([phone]), at 08/22/2022 12:43 PM XR Pelvis (Generic) (Exam End: 08/22/2022 12:19 AM) Impression No radiographic evidence of infection status post left hip ORIF. Thank you for letting us participate in the care of this patient. If you are a health care provider and have any questions regarding this report, please contact the number below. For patients who have questions please contact the health infant childcare provider that requested your imaging first. Electronically signed by: Richard Billings MD, [facility] ([phone]), at 08/22/2022 10:[address] Angiogram Coronary [...] who have questions please contact the health infant childcare provider that requested your imaging first. Electronically signed by: Arlette Mays MD, [facility] ([phone]), at 08/27/2022 11:[address] Chest wo Contrast (Generic) (Exam End: 08/27/2022 8:58 AM) Impression Stable findings of multifocal pneumonia. No interval abnormality. Thank you for letting us participate in the care of this patient. If you are a health care provider and have any questions regarding this report, please contact the number below. For patients who have questions please contact the health infant childcare provider that requested your imaging first. Electronically signed by: MINH QUIROGA MD, [facility] ([phone]), at 08/27/2022 10:48 AM XR Fluoro Barium [...] who have questions please contact the health infant childcare provider that requested your imaging first. Electronically signed by: Aron Billings MD, [facility] ([phone]), at 08/31/2022 12:02 PM Medications: Scheduled: ??? [...] anemia,??GERD??c/b??esophagitis &??Farrell's esophagus, who was admitted to [facility] on [place]/14/2022 (now on Hospital Day #21) [...] - Continue therapy with PT, OT, and ELEVATOR EXAMINER - Diet pending MBS results milvia Neuro: # Bipolar Disorder - Depakote 300 mg oral liquid per Dobhoff tube q6hr. - Continue Seroquel 100mg nightly - Will check VPA trough level 08/29. - level 25mg/L 08/29 - ELEVATOR EXAMINER to evaluate, Recommend NPO at present - [...] Medicine PGY1 Medicine Team: Jose Juan, Pager #[phone] Date: 09/04/2022 Associated attestation - Tenisha Sandy [...] improved with use of wellbutrin. Will continue ELEVATOR EXAMINER and consider trial ofnectar thick with speech. [...] deficiency anemia,??GERD??c/b??esophagitis &??Farrell's esophagus??presenting in transfer from [facility], suspected to be in cardiogenic shock and [...] OT arrival. Agrees to get OOB to [facility]. ?? States she has a fungal infection. Skin at gavin-area inspected. Pt red in gavin-area and has yunior buttocks. Nurse aware. ?? Supine to sit at EOB under supervision with HOB elevated to 45* for aspiration precautions ?? Independent sitting balance at EOB ?? Donned both slipper socks independently with legs on bed ?? [facility] brought bedside bed for stand pivot transfer. [...] navigate with FWW for stand-step transfer to [facility]. I need to sit. I'm going to fall? Pt sat on commode quickly. ?? Sit to stand attempted twice from [facility]. Pt immediately sitting out of fear. ?? [...] 2-4 times/wk Total Minutes, Occupational Therapy: 44 ([phone] 3 TA) Pager: [phone] Alicia Cook OT 09/03/2022 Occupational Therapy Rehabilitation Department * Shashi Young - 09/03/2022 10:36 AM EDT Mill Controller Encounter Note Patient Name: Ishan Irving : [id number] MR#: [id number] Admit Date: 08/14/2022 11:11 PM Hospital Day [...] hands. Patient and her expressed appreciation. Follow-up: Telecommunications Repairer will continue to offer support to patient as needed. Time in Direct Care: 15 Shashi Young 09/03/2022 * Nancy Ernst, RD - 09/03/2022 8:27 AM EDT Nutrition Progress Note Ishan Irving is a 62 y.o.??female??with h/o bipolar, DM, EtOH, esophagitis, who presented to [facility] 3 days ago after being found unresponsive at home.?Patient found to have likely pneumonia +/- aspiration, newly reduced EF. Reason for Assessment: Follow-up, Tube Feeding Nutrition Recommendations: Enteral Nutrition: Cyclic Peptamen AF at 110ml/hr for 12hrs from 4028-4135 At goal, this will provide: Peptamen AF Total Volume Per Day: 1320 mL Scoops of Protein: 0 Calories per Day: 1584 Protein per Day: 100 g Free Water mL per Day: 1072 % RDI: 106 % Monitor hydration status on above TFs as they are concentrated. Pt may need additional fluids depending on IVFs, med flushes, p.o. Intake, etc. Diet per ELEVATOR EXAMINER Monitor weight to trend Monitor BM. Goal [...] Peptamen AF at 110ml/hr for 12hrs from 2695-2407 Average tube feeding provision over past 3 [...] of this encounter: 69.9 kg (154 lb). [place] Body Weight (IBW) (kg): 45.45 Usual Body [...] 08/25 r/t liquid tylenol, d/c per this principal technical writer's request as liquid tylenol acts as [...] up while inpatient Nancy Ernst RD Pager #:[phone] * Petty Mccullough, ELEVATOR EXAMINER - 09/03/2022 8:20 AM EDT Speech Therapy Note Patient Profile:??Ishan Irving is a 62 year old female with a medical history notable for??recent L femoral neck fracture,??bipolar disorder, resolving medication-induced Parkinsonism, insulin-dependent diabetes mellitus,??hx of alcohol use disorder (reported to be in remission for 1.5 years)c/b chronic pancreatitis, iron deficiency anemia,??GERD??c/b??esophagitis &??Farrell's esophagus??presenting in transfer from [facility]??on 08/14/2022, suspected to be in cardiogenic shock and found to be in mixed shock with concern for stress cardiomyopathy.??ELEVATOR EXAMINER following for swallow, cognitive tx. MBS completed [...] Pt was seen today for a follow-up ELEVATOR EXAMINER visit. ??? Oropharyngeal swallow function is reportedly [...] in ongoing cognitive-linguistic evaluation. Plan: Therapy Frequency (ELEVATOR EXAMINER Eval): 3-5 times/wk Pt./family are in agreement with treatment plan. Total Minutes (Speech Language Pathology): 40 Petty Mccullough M.S., [facility]-ELEVATOR EXAMINER Inpatient Speech-Pathology Pager: [phone] * Irwin Jones MD - 09/03/2022 7:13 AM EDT Images from the original note were not included. Inpatient Hospital Medicine Progress Note 09/03/2022 Patient Name: ISHAN IRVING Date of : 1960 Age: 62 y.o. Hospital Admit Date: 08/14/2022 Hospital Day: 20 Inpatient Attending: Tenisha Sandy MD PCP: Chris Stanley APRN ([phone]) No chief complaint on file. ID: Ishan Irving is a 62 y.o. 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.5 years) c/b chronic pancreatitis, iron deficiency anemia, ??GERD??c/b??esophagitis &??Farrell's esophagus, who was admitted to [facility] on 08/14/2022 (now on Hospital Day #20), and transferred to Hospital Medicine team from Cardiology on 08/30 for mixed shock with concern for stress cardiomyopathy (Takotsubo Cardiomyopathy). 24 HOUR EVENTS & SUBJECTIVE: Yesterday: - ELEVATOR EXAMINER evaluated, NPO, ice chips for pleasure recommended - Palliative Care consulted and met with patient - PT met with patient, recommend acute rehab versus swing bed when medically ready for discharge - Psych met with patient, recommended once daily dosing of Bupropion IR - GI consulted and recommends patient continue working w/ELEVATOR EXAMINER, can consider PEG if inadequate improvement Overnight: [...] Gas): No results found for: PHART, PO2ART, GFE8ERV, YLD6DHJ VBG (Venous Blood Gas): No results for input(s): PHVEN, YGX2XJW, PO2VEN, CPX1LYN, BEVEN, LMU7LMW in the last 72 hours. EKG: Lab [...] Date/Time Lower Respiratory Culture Bronchial Alveolar Lavage [[id number]] Collected: 08/21/221649 Lab Status: Final result Specimen: Bronchial Alveolar Lavage Updated: 08/23/22 0741 Lower Respiratory Culture Rare mixed bacterial morphotypes suggestive of normal upper respiratory wiley Gram Stain -- Few Neutrophils seen No squamous epithelial cells seen No microorganisms seen. Fungus Culture & Calc Stain Bronchial Alveolar Lavage [[id number]] (Abnormal) Collected: 08/21/221649 Lab Status: Preliminary result Specimen: Bronchial Alveolar Lavage Updated: 08/24/22 145 AFB culture Bronchial Alveolar Lavage [[id number]] Collected: 08/21/221649 Lab Status: Preliminary result Specimen: Bronchial Alveolar Lavage Updated: 08/24/222218 Acid Fast Bacilli Culture -- No Acid Fast Bacilli isolated to date If active tuberculosis is suspected, the patient should be on [employer]. Call Infection Prevention for assistance if needed. Acid Fast Stain No Acid Fast Bacilli seen Fungus culture [[id number]] (Abnormal) Collected: 08/21/221649 Lab Status: Preliminary result Specimen: Bronchial Alveolar Lavage Updated: 08/24/22 145 Fungus Culture Rare Jacky albicans Calcofluor White Stain [[id number]] Collected: 08/21/221649 Lab Status: Final result Specimen: Bronchial Alveolar Lavage Updated: 08/21/222015 Calcofluor Stain Calcofluor White Preparation: Negative Lower Respiratory Culture Bronchial Alveolar Lavage [[id number]] Collected: 08/21/221644 Lab Status: Final result Specimen: Bronchial Alveolar Lavage Updated: 08/23/22 0741 Lower Respiratory Culture Rare mixed bacterial morphotypes suggestive of normal upper respiratory wiley Gram Stain -- Moderate Neutrophils seen No squamous epithelial cells seen No microorganisms seen. Fungus Culture & Calc Stain Bronchial Alveolar Lavage [[id number]] (Abnormal) Collected: 08/21/221644 Lab Status: Preliminary result Specimen: Bronchial Alveolar Lavage Updated: 08/24/22 1453 AFB culture Bronchial Alveolar Lavage [[id number]] Collected: 08/21/221644 Lab Status: Preliminary result Specimen: Bronchial Alveolar Lavage Updated: 08/24/22 222 Acid Fast Bacilli Culture -- No Acid Fast Bacilli isolated to date If active tuberculosis is suspected, the patient should be on [employer]CA[employer]. Call Infection Prevention for assistance if needed. Acid Fast Stain No Acid Fast Bacilli seen Fungus culture [[id number]] (Abnormal) Collected: 08/21/221644 Lab Status: Preliminary result Specimen: Bronchial Alveolar Lavage Updated: 08/24/22 1453 Fungus Culture Rare Jacky albicans Calcofluor White Stain [[id number]] Collected: 08/21/221644 Lab Status: Final result Specimen: Bronchial Alveolar Lavage Updated: 08/21/22 2017 Calcofluor Stain Calcofluor White Preparation: Negative Blood culture [[id number]] Collected: 08/19/22 1720 Lab Status: Final result Specimen: Blood Updated: 08/24/22 2301 Blood Culture No growth at 5 days. Lower Respiratory Culture Sputum Induced [[id number]] Collected: 08/19/22 1451 Lab Status: Final result Specimen: Sputum Induced Updated: 08/21/22 0948 Lower Respiratory Culture Rare mixed bacterial morphotypes suggestive of normal upper respiratory wiley Gram Stain -- Many Neutrophils seen Few squamous epithelial cells seen No microorganisms seen. Blood culture [[id number]] Collected: 08/19/22 1330 Lab Status: Final result Specimen: Blood Updated: 08/24/22 1501 Blood Culture No growth at 5 days. Legionella Urinary Antigen [[id number]] Collected: 08/18/22 1013 Lab Status: Final result [...] Catheter Urine; Other; sepsis, bacteria on UA [[id number]] Collected: 08/15/22 1225 Lab Status: Final result Specimen: Indwelling Catheter Urine Updated: 08/16/22 0804 Urine Culture 1,000-9,000 cfu/ml Insignificant growth COVID-19 PCR [[id number]] Collected: 08/15/22 1150 Lab Status: Final result [...] using the Simplexa COVID-19 Direct Assay by [employer] as authorized by the FDA issued Emergency [...] Department of Pathology and Laboratory Medicine at [facility], certified under the Clinical Laboratory Improvement Amendments [...] fact sheets at the following FDA website: https://www.fda.gov/medical-devices/nrwtcvptyqe-nxxqhzf-7354-ustvh-39-nwdbsskgo- zgq-frakhfuqjinrbc-dradbxj-devices/bauup-oudluepggkq-rtvb SARS-CoV-2 Source MAINFRAME ARCHITECT Swab Lower Respiratory Culture Sputum Induced [[id number]] Collected: 08/15/22 0740 Lab Status: Final result Specimen: Sputum Induced Updated: 08/17/22 1015 Lower Respiratory Culture Rare normal upper respiratory wiley Gram Stain -- Many Neutrophils Few squamous epithelial cells Rare mixed bacterial morphotypes suggestive of normal upper respiratory wiley Blood culture [[id number]] Collected: 08/15/22 0110 Lab Status: Final result Specimen: Blood Updated: 08/20/22 0701 Blood Culture No growth at 5 days. MRSA PCR Screen ([facility]) [[id number]] Collected: 08/15/22 0050 Lab Status: Final result Specimen: Nasopharyngeal Swab Updated: 08/17/22 1419 MRSA Result Negative MRSA Interp -- Methicillin-resistant Staphylococcus aureus (MRSA) is NOT DETECTED The MRSA target DNA sequences (mec and SCC) were not detected within the acceptable ranges using the Xpert MRSA NxG on the GeneXpert Dx System ([employer]du[employer]). This suggests the absence of MRSA in the patient specimen submitted for testing. This test is cleared by the U.S. Food and Drug Administration for clinical use and its performance characteristics have been verified by the [facility] at [facility]. This result does not rule out the presence of any other organisms. Rare false negative results may occur if MRSA is present at low concentrations with much higher concentrations of other organisms including MRSE or S. aureus with an empty SCC cassette. Comment: [VERIFIED DATE]08.17.22 Verified By:Shannon Smiley (Electronic Signature) Blood culture [[id number]] Collected: 08/14/22 8091 Lab Status: Final result Specimen: Blood Updated: [...] who have questions please contact the health infant childcare provider that requested your imaging first. Electronically signed by: Davi Terry MD, [facility] ([phone]), at 08/15/2022 3:53 AM XR Abdomen 1 [...] who have questions please contact the health infant childcare provider that requested your imaging first. Electronically signed by: Liliane Adams MD, [facility] ([phone]), at 08/15/2022 9:05 AM XR Chest One [...] who have questions please contact the health infant childcare provider that requested your imaging first. Electronically signed by: Davi Terry MD, [facility] ([phone]), at 08/15/2022 3:55 AM XR Abdomen 1 [...] who have questions please contact the health infant childcare provider that requested your imaging first. Electronically signed by: Davi Terry MD, [facility] ([phone]), at 08/15/2022 6:41 AM XR Chest One [...] who have questions please contact the health infant childcare provider that requested your imaging first. Electronically signed by: Alfonso Adams MD, [facility] ([phone]), at 08/16/2022 10:[address] Head wo [...] who have questions please contact the health infant childcare provider that requested your imaging first. Electronically signed by: Moustapha Correa MD, [facility] ([phone]), at 08/16/2022 11:19 PM XR Abdomen 1 [...] who have questions please contact the health infant childcare provider that requested your imaging first. Electronically signed by: Jenn Pina MD, [facility] ([phone]), at 08/17/2022 2:[address] Head wo Contrast (Generic) (Exam End: 08/18/2022 3:14 PM) Impression No acute intracranial process. Thank you for letting us participate in the care of this patient. If you are a health care provider and have any questions regarding this report, please contact the number below. For patients who have questions please contact the health infant childcare provider that requested your imaging first. Electronically signed by: Antonio Jordan MD, [facility] ([phone]), at 08/18/2022 3:18 PM XR Chest One [...] who have questions please contact the health infant childcare provider that requested your imaging first. Electronically signed by: Alan De Guzman MD, [facility] ([phone]), at 08/19/2022 3:14 PM MRI Brain wo Contrast (Exam End: 08/19/2022 10:15 PM) Impression No acute infarction, mass or mass effect. Thank you for letting us participate in the care of this patient. If you are a health care provider and have any questions regarding this report, please contact the number below. For patients who have questions please contact the health infant childcare provider that requested your imaging first. Electronically signed by: Jagdeep Lee MD, [facility] ([phone]), at 08/20/2022 3:34 AM XR Chest for [...] who have questions please contact the health infant childcare provider that requested your imaging first. Electronically signed by: Alan De Guzman MD, [facility] ([phone]), at 08/19/2022 4:[address] Hip w [...] who have questions please contact the health infant childcare provider that requested your imaging first. Electronically signed by: Aicha Chowdhury MD, [facility] ([phone]), at 08/21/2022 9:[address] Chest w [...] who have questions please contact the health infant childcare provider that requested your imaging first. Electronically signed by: Jagdeep Lee MD, [facility] ([phone]), at 08/21/2022 6:56 AM XR Hip 2-3 Views Left (Exam End: 08/22/2022 12:19 AM) Impression No radiographic evidence of infection. Thank you for letting us participate in the care of this patient. If you are a health care provider and have any questions regarding this report, please contact the number below. For patients who have questions please contact the health infant childcare provider that requested your imaging first. Electronically signed by: Viktor Cervantes MD, [facility] ([phone]), at 08/22/2022 12:43 PM XR Pelvis (Generic) (Exam End: 08/22/2022 12:19 AM) Impression No radiographic evidence of infection status post left hip ORIF. Thank you for letting us participate in the care of this patient. If you are a health care provider and have any questions regarding this report, please contact the number below. For patients who have questions please contact the health infant childcare provider that requested your imaging first. Electronically signed by: Richard Billings MD, [facility] ([phone]), at 08/22/2022 10:[address] Angiogram Coronary [...] who have questions please contact the health infant childcare provider that requested your imaging first. Electronically signed by: Arlette Mays MD, [facility] ([phone]), at 08/27/2022 11:[address] Chest wo Contrast (Generic) (Exam End: 08/27/2022 8:58 AM) Impression Stable findings of multifocal pneumonia. No interval abnormality. Thank you for letting us participate in the care of this patient. If you are a health care provider and have any questions regarding this report, please contact the number below. For patients who have questions please contact the health infant childcare provider that requested your imaging first. Electronically signed by: MINH QUIROGA MD, [facility] ([phone]), at 08/27/2022 10:48 AM XR Fluoro Barium [...] who have questions please contact the health infant childcare provider that requested your imaging first. Electronically signed by: Aron Billings MD, [facility] ([phone]), at 08/31/2022 12:02 PM Medications: Scheduled: ??? [...] anemia,??GERD??c/b??esophagitis &??Farrell's esophagus, who was admitted to [facility] on 08/14/2022 (now on Hospital Day #20) [...] for a percutaneous feeding tube, discussed with ELEVATOR EXAMINER and plan for MBS tomorrow, will remove dobhoff prior to minimize other factors worsening dysphagia. Today's plan: - Discuss wellbutrin dose with Pyjared - Consider dose of IV iron for additional supplementation to low stores - Ongoing therapy with PT, OT, and ELEVATOR EXAMINER - Venofer x 1 to supplement oral iron for iron deficiency anemia milvia Neuro: # Bipolar Disorder - Depakote 300 mg oral liquid per Dobhoff tube q6hr. - Continue Seroquel 100mg nightly - Will check VPA trough level 08/29. - level 25mg/L 08/29 - ELEVATOR EXAMINER to evaluate, Recommend NPO at present - [...] Medicine PGY1 Medicine Team: Jose Juan, Pager #[phone] Date: 09/03/2022 Associated attestation - Tenisha Sandy [...] PO intake. Awaiting MBS. * Feroz Portillo, CLINICAL SALES CONSULTANT - 09/02/2022 3:10 PM EDT Physical Therapy [...] deficiency anemia,??GERD??c/b??esophagitis &??Farrell's esophagus??presenting in transfer from [facility], suspected to be in cardiogenic shock and [...] TE-F x 3 FEROZ PORTILLO PTA Pager: [phone] Physical Therapy Inpatient Rehabilitation Department * Tanya Figueroa, ELEVATOR EXAMINER - 09/02/2022 2:09 PM EDT Speech Therapy Note Patient Profile:??Ishan Irving is a 62 year old female with a medical history notable for??recent L femoral neck fracture,??bipolar disorder, resolving medication-induced Parkinsonism, insulin-dependent diabetes mellitus,??hx of alcohol use disorder (reported to be in remission for 1.5 years)c/b chronic pancreatitis, iron deficiency anemia,??GERD??c/b??esophagitis &??Farrell's esophagus??presenting in transfer from [facility]??on 08/14/2022, suspected to be in cardiogenic shock and found to be in mixed shock with concern for stress cardiomyopathy.??ELEVATOR EXAMINER following for swallow, cognitive tx. MBS completed 08/31/22 noting moderate-severe oropharyngeal dysphagia. Lines/Drains: DHT(08/17/22), PICC Precautions: Fall risk, Aspiration risk, Delirium and High risk skin breakdown Continuous Interventions: ??? tube feeding diet 110 mL/hr at 09/02/22 1200 Interval History: No significant changes. Per Resident notes, - PT evaluated and recommends swing bed - GI consulted and recommends patient continue working w/ELEVATOR EXAMINER, can consider PEG if inadequate improvement Subjective: [...] puzzle, joining dot drawings. ?? Attempts to [place] words using word soto puzzles - denies any assistance form ELEVATOR EXAMINER during this task. Searches 9 words independently [...] nutrition/hydration to provide nutrition during rehab course. ELEVATOR EXAMINER will f/u for ongoing swallow and cognitive intervention. ?? Barium swallow (esophagram) will be helpful at later date (due to hx of Farrell's esophagus/GERD), however Pt is at high potential for aspiration during study d/t positioning requirements for this test. Likely will need a repeat MBS prior to ordering of barium swallow. ?? Pt would benefit from skilled ELEVATOR EXAMINER services to maximize swallow function and safety [...] in ongoing cognitive-linguistic evaluation. Plan: Therapy Frequency (ELEVATOR EXAMINER Eval): 2-4 times/wk Pt./family are in agreement with treatment plan. Total Minutes (Speech Language Pathology): 24 Thank you for this consult with this patient. Please feel free to page me with any questions or concerns. Tanya Figueroa, , ELEVATOR EXAMINER-CF Pager #[phone] Speech Language Pathology Inpatient Rehabilitation Medicine * Ghulam Torres MD - 09/02/2022 12:10 PM EDT Palliative super quick note Ran to catch antonio at bedside with Ishan. Introduced myself and palliative. Family welcoming to the support and visit. Antonio has to get home to [facility] to take care of their house, [...] patient and to make a call to [place] [employer] to submit claim for health related reasons. Patient gave verbal permission for me to speak with [employer] and we proceeded to walk through the process together. Patients will provide this principal technical writer with documentation for the physician to [...] Tenisha Sandy MD PCP: Chris Stanley APRN ([phone]) No chief complaint on file. ID: Ishan Irving is a 62 y.o. 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.5 years) c/b chronic pancreatitis, iron deficiency anemia, ??GERD??c/b??esophagitis &??Farrell's esophagus, who was admitted to [facility] on 08/14/2022 (now on Hospital Day #19), and transferred to Hospital Medicine team from Cardiology on 08/30 for mixed shock with concern for stress cardiomyopathy (Takotsubo Cardiomyopathy). 24 HOUR EVENTS & SUBJECTIVE: Yesterday: - Psychiatry consult, recommend starting Wellbutrin for presumed depression versus hypoactive delirium - PT evaluated and recommends swing bed - GI consulted and recommends patient continue working w/ELEVATOR EXAMINER, can consider PEG if inadequate improvement Overnight: [...] Gas): No results found for: PHART, PO2ART, LUP8VLU, XQR1ITD VBG (Venous Blood Gas): No results for input(s): PHVEN, BOU9TVD, PO2VEN, WVM4VAW, BEVEN, TJO2IFQ in the last 72 hours. EKG: Lab [...] Date/Time Lower Respiratory Culture Bronchial Alveolar Lavage [[id number]] Collected: 08/21/221649 Lab Status: Final result Specimen: Bronchial Alveolar Lavage Updated: 08/23/22740 Lower Respiratory Culture Rare mixed bacterial morphotypes suggestive of normal upper respiratory wiley Gram Stain -- Few Neutrophils seen No squamous epithelial cells seen No microorganisms seen. Fungus Culture & Calc Stain Bronchial Alveolar Lavage [[id number]] (Abnormal) Collected: 08/21/221649 Lab Status: Preliminary result Specimen: Bronchial Alveolar Lavage Updated: 08/24/22 145 AFB culture Bronchial Alveolar Lavage [[id number]] Collected: 08/21/221649 Lab Status: Preliminary result Specimen: Bronchial Alveolar Lavage Updated: 08/24/222218 Acid Fast Bacilli Culture -- No Acid Fast Bacilli isolated to date If active tuberculosis is suspected, the patient should be on [employer]. Call Infection Prevention for assistance if needed. Acid Fast Stain No Acid Fast Bacilli seen Fungus culture [[id number]] (Abnormal) Collected: 08/21/221649 Lab Status: Preliminary result Specimen: Bronchial Alveolar Lavage Updated: 08/24/22 145 Fungus Culture Rare Jacky albicans Calcofluor White Stain [[id number]] Collected: 08/21/221649 Lab Status: Final result Specimen: Bronchial Alveolar Lavage Updated: 08/21/22 2016 Calcofluor Stain Calcofluor White Preparation: Negative Lower Respiratory Culture Bronchial Alveolar Lavage [[id number]] Collected: 08/21/221644 Lab Status: Final result Specimen: Bronchial Alveolar Lavage Updated: 08/23/22740 Lower Respiratory Culture Rare mixed bacterial morphotypes suggestive of normal upper respiratory wiley Gram Stain -- Moderate Neutrophils seen No squamous epithelial cells seen No microorganisms seen. Fungus Culture & Calc Stain Bronchial Alveolar Lavage [[id number]] (Abnormal) Collected: 08/21/221644 Lab Status: Preliminary result Specimen: Bronchial Alveolar Lavage Updated: 08/24/22 1453 AFB culture Bronchial Alveolar Lavage [[id number]] Collected: 08/21/221644 Lab Status: Preliminary result Specimen: Bronchial Alveolar Lavage Updated: 08/24/22 2221 Acid Fast Bacilli Culture -- No Acid Fast Bacilli isolated to date If active tuberculosis is suspected, the patient should be on [employer] PRECA[employer]IONS. Call Infection Prevention for assistance if needed. Acid Fast Stain No Acid Fast Bacilli seen Fungus culture [[id number]] (Abnormal) Collected: 08/21/221644 Lab Status: Preliminary result Specimen: Bronchial Alveolar Lavage Updated: 08/24/22 145 Fungus Culture Rare Jacky albicans Calcofluor White Stain [[id number]] Collected: 08/21/221644 Lab Status: Final result Specimen: Bronchial Alveolar Lavage Updated: 08/21/22 2017 Calcofluor Stain Calcofluor White Preparation: Negative Blood culture [[id number]] Collected: 08/19/22 1720 Lab Status: Final result Specimen: Blood Updated: 08/24/22 2301 Blood Culture No growth at 5 days. Lower Respiratory Culture Sputum Induced [[id number]] Collected: 08/19/22 1451 Lab Status: Final result Specimen: Sputum Induced Updated: 08/21/22 0948 Lower Respiratory Culture Rare mixed bacterial morphotypes suggestive of normal upper respiratory wiley Gram Stain -- Many Neutrophils seen Few squamous epithelial cells seen No microorganisms seen. Blood culture [[id number]] Collected: 08/19/22 1330 Lab Status: Final result Specimen: Blood Updated: 08/24/22 1501 Blood Culture No growth at 5 days. Legionella Urinary Antigen [[id number]] Collected: 08/18/22 1013 Lab Status: Final result [...] Catheter Urine; Other; sepsis, bacteria on UA [[id number]] Collected: 08/15/22 1225 Lab Status: Final result Specimen: Indwelling Catheter Urine Updated: 08/16/22 0804 Urine Culture 1,000-9,000 cfu/ml Insignificant growth COVID-19 PCR [[id number]] Collected: 08/15/22 1150 Lab Status: Final result [...] using the Simplexa COVID-19 Direct Assay by [employer] as authorized by the FDA issued Emergency [...] Department of Pathology and Laboratory Medicine at [facility], certified under the Clinical Laboratory Improvement Amendments [...] fact sheets at the following FDA website: https://www.fda.gov/medical-devices/pjvxqnaiilx-mhenwop-1016-kpqcl-15-hiuvnoktr- dtf-snsbkrdbqotacm-sihzntb-devices/tenjl-pmozjzhhnhj-xmge SARS-CoV-2 Source MAINFRAME ARCHITECT Swab Lower Respiratory Culture Sputum Induced [[id number]] Collected: 08/15/22 0740 Lab Status: Final result Specimen: Sputum Induced Updated: 08/17/22 1015 Lower Respiratory Culture Rare normal upper respiratory wiley Gram Stain -- Many Neutrophils Few squamous epithelial cells Rare mixed bacterial morphotypes suggestive of normal upper respiratory wiley Blood culture [[id number]] Collected: 08/15/22 0110 Lab Status: Final result Specimen: Blood Updated: 08/20/22700 Blood Culture No growth at 5 days. MRSA PCR Screen ([facility]/CGP/APD/NLH) [[id number]] Collected: 08/15/22 0050 Lab Status: Final result Specimen: Nasopharyngeal Swab Updated: 08/17/22 1419 MRSA Result Negative MRSA Interp -- Methicillin-resistant Staphylococcus aureus (MRSA) is NOT DETECTED The MRSA target DNA sequences (mec and SCC) were not detected within the acceptable ranges using the Xpert MRSA NxG on the GeneXpert Dx System (Unfold). This suggests the absence of MRSA in the patient specimen submitted for testing. This test is cleared by the U.S. Food and Drug Administration for clinical use and its performance characteristics have been verified by the [facility] at [facility]. This result does not rule out the presence of any other organisms. Rare false negative results may occur if MRSA is present at low concentrations with much higher concentrations of other organisms including MRSE or S. aureus with an empty SCC cassette. Comment: [VERIFIED DATE]08.17.22 Verified By:Shannon Smiley (Electronic Signature) Blood culture [[id number]] Collected: 08/14/22 6547 Lab Status: Final result Specimen: Blood Updated: [...] who have questions please contact the health infant childcare provider that requested your imaging first. Electronically signed by: Davi Terry MD, [facility] ([phone]), at 08/15/2022 3:53 AM XR Abdomen 1 [...] who have questions please contact the health infant childcare provider that requested your imaging first. Electronically signed by: Liliane Adams MD, [facility] ([phone]), at 08/15/2022 9:05 AM XR Chest One [...] who have questions please contact the health infant childcare provider that requested your imaging first. Electronically signed by: Davi Terry MD, [facility] ([phone]), at 08/15/2022 3:55 AM XR Abdomen 1 [...] who have questions please contact the health infant childcare provider that requested your imaging first. Electronically signed by: Davi Terry MD, [facility] ([phone]), at 08/15/2022 6:41 AM XR Chest One [...] who have questions please contact the health infant childcare provider that requested your imaging first. Electronically signed by: Alfonso Adams MD, [facility] ([phone]), at 08/16/2022 10:[address] Head wo [...] who have questions please contact the health infant childcare provider that requested your imaging first. Electronically signed by: Moustapha Correa MD, [facility] ([phone]), at 08/16/2022 11:19 PM XR Abdomen 1 [...] who have questions please contact the health infant childcare provider that requested your imaging first. Electronically signed by: Jenn Pina MD, [facility] ([phone]), at 08/17/2022 2:[address] Head wo Contrast (Generic) (Exam End: 08/18/2022 3:14 PM) Impression No acute intracranial process. Thank you for letting us participate in the care of this patient. If you are a health care provider and have any questions regarding this report, please contact the number below. For patients who have questions please contact the health infant childcare provider that requested your imaging first. Electronically signed by: Antonio Jordan MD, [facility] ([phone]), at 08/18/2022 3:18 PM XR Chest One [...] who have questions please contact the health infant childcare provider that requested your imaging first. Electronically signed by: Alan De Guzman MD, [facility] ([phone]), at 08/19/2022 3:14 PM MRI Brain wo Contrast (Exam End: 08/19/2022 10:15 PM) Impression No acute infarction, mass or mass effect. Thank you for letting us participate in the care of this patient. If you are a health care provider and have any questions regarding this report, please contact the number below. For patients who have questions please contact the health infant childcare provider that requested your imaging first. Electronically signed by: Jagdeep Lee MD, [facility] ([phone]), at 08/20/2022 3:34 AM XR Chest for [...] who have questions please contact the health infant childcare provider that requested your imaging first. Electronically signed by: Alan De Guzman MD, [facility] ([phone]), at 08/19/2022 4:[address] Hip w [...] who have questions please contact the health infant childcare provider that requested your imaging first. Electronically signed by: Aicha Chowdhury MD, [facility] ([phone]), at 08/21/2022 9:[address] Chest w [...] who have questions please contact the health infant childcare provider that requested your imaging first. Electronically signed by: Jagdeep Lee MD, [facility] ([phone]), at 08/21/2022 6:56 AM XR Hip 2-3 Views Left (Exam End: 08/22/2022 12:19 AM) Impression No radiographic evidence of infection. Thank you for letting us participate in the care of this patient. If you are a health care provider and have any questions regarding this report, please contact the number below. For patients who have questions please contact the health infant childcare provider that requested your imaging first. Electronically signed by: Viktor Cervantes MD, [facility] ([phone]), at 08/22/2022 12:43 PM XR Pelvis (Generic) (Exam End: 08/22/2022 12:19 AM) Impression No radiographic evidence of infection status post left hip ORIF. Thank you for letting us participate in the care of this patient. If you are a health care provider and have any questions regarding this report, please contact the number below. For patients who have questions please contact the health infant childcare provider that requested your imaging first. Electronically signed by: Richard Billings MD, [facility] ([phone]), at 08/22/2022 10:[address] Angiogram Coronary [...] who have questions please contact the health infant childcare provider that requested your imaging first. Electronically signed by: Arlette Mays MD, [facility] ([phone]), at 08/27/2022 11:[address] Chest wo Contrast (Generic) (Exam End: 08/27/2022 8:58 AM) Impression Stable findings of multifocal pneumonia. No interval abnormality. Thank you for letting us participate in the care of this patient. If you are a health care provider and have any questions regarding this report, please contact the number below. For patients who have questions please contact the health infant childcare provider that requested your imaging first. Electronically signed by: MINH QUIROGA MD, [facility] ([phone]), at 08/27/2022 10:48 AM XR Fluoro Barium [...] who have questions please contact the health infant childcare provider that requested your imaging first. Electronically signed by: Aron Billings MD, [facility] ([phone]), at 08/31/2022 12:02 PM Medications: Scheduled: ??? [...] anemia,??GERD??c/b??esophagitis &??Farrell's esophagus, who was admitted to [facility] on 08/14/2022 (now on Hospital Day #19) [...] with Dr. Marquis in June. Anticipate further ELEVATOR EXAMINER intervention with hope that patient is able to discharge with PO nutrition, percutaneous G-tube remains a possibility. Patient's profound psychomotor slowing raises some concern for catatonia. May consider trial of benzodiazepines if response is not seen to wellbutrin. Today's plan: - Start wellbutrin today - Ongoing therapy with PT, OT, and ELEVATOR EXAMINER - Replete mag w/2gm for goal >1 - reticulocyte count (further interrogation of microcytic anemia) Neuro: # Bipolar Disorder - Depakote 300 mg oral liquid per Dobhoff tube q6hr. - Continue Seroquel 100mg nightly - Will check VPA trough level 08/29. - level 25mg/L 08/29 - ELEVATOR EXAMINER to evaluate, Recommend NPO at present - [...] Medicine PGY1 Medicine Team: Jose Juan, Pager #[phone] Date: 09/02/2022 Associated attestation - Tenisha Sandy [...] Shashi Young - 09/01/2022 5:29 PM EDT Mill Controller Encounter Note Patient Name: Ishan Irving : [id number] MR#: [id number] Admit Date: 08/14/2022 11:11 PM Hospital Day [...] Care: Nydia Young 09/01/2022 * Petty Mccullough, ELEVATOR EXAMINER - 09/01/2022 1:56 PM EDT Speech Therapy Note Patient Profile:??Ishan Irving is a 62 year old female with a medical history notable for??recent L femoral neck fracture,??bipolar disorder, resolving medication-induced Parkinsonism, insulin-dependent diabetes mellitus,??hx of alcohol use disorder (reported to be in remission for 1.5 years)c/b chronic pancreatitis, iron deficiency anemia,??GERD??c/b??esophagitis &??Farrell's esophagus??presenting in transfer from [facility]??on 08/14/2022, suspected to be in cardiogenic shock and found to be in mixed shock with concern for stress cardiomyopathy.??ELEVATOR EXAMINER following for swallow, cognitive tx. MBS completed [...] ?? Respiratory rate and respiratory swallow pattern: [facility] Esophageal Observations: Intermittent belching noted today, consistent [...] nutrition/hydration to provide nutrition during rehab course. ELEVATOR EXAMINER will f/u for ongoing swallow and cognitive intervention. ?? Barium swallow (esophagram) will be helpful at later date (due to hx of Farrell's esophagus/GERD), however Pt is at high potential for aspiration during study d/t positioning requirements for this test. Likely will need a repeat MBS prior to ordering of barium swallow. ?? Pt would benefit from skilled ELEVATOR EXAMINER services to maximize swallow function and safety [...] in ongoing cognitive-linguistic evaluation. Plan: Therapy Frequency (ELEVATOR EXAMINER Eval): 2-4 times/wk Pt./family are in agreement with treatment plan. Total Minutes (Speech Language Pathology): 26 Petty Mccullough M.S., [facility]-ELEVATOR EXAMINER Inpatient Speech-Pathology Pager: [phone] * Alicia Cook, OT - 09/01/2022 1:38 [...] deficiency anemia,??GERD??c/b??esophagitis &??Farrell's esophagus??presenting in transfer from [facility], suspected to be in cardiogenic shock and [...] determined Anticipated Discharge Disposition: acute rehabilitation facility, alf facility Daily schedule / Staff Recommendations: ? [...] Minutes, Occupational Therapy: 38 (2 TA) Pager: [phone] Alicia Cook OT 09/01/2022 Occupational Therapy Rehabilitation [...] deficiency anemia,??GERD??c/b??esophagitis &??Farrell's esophagus??presenting in transfer from [facility], suspected to be in cardiogenic shock and [...] (seeb with OT) GENE YOUNG, PT Pager: [phone] Physical Therapy Inpatient Rehabilitation Department * Elsie Erickson, INTEGRATION PROJECT MANAGER - 09/01/2022 7:30 AM EDT Follow Up [...] deficiency anemia,??GERD??c/b??esophagitis &??Farrell's esophagus??presenting in transfer from [facility], suspected to be in cardiogenic shock and [...] goal of 98mls/hr Monitoring:??Q4 Elsie Erickson APRN [facility] Endocrinology Diabetes Management Pager [phone] * Irwin Jones MD - 09/01/2022 7:19 AM EDT Images from the original note were not included. Inpatient Hospital Medicine Progress Note 09/01/2022 Patient Name: ISHAN IRVING Date of : 1960 Age: 62 y.o. Hospital Admit Date: 08/14/2022 Hospital Day: 18 Inpatient Attending: Tenisha Sandy MD PCP: Chris Stanley APRN ([phone]) No chief complaint on file. ID: Ishan Irving is a 62 y.o. 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.5 years) c/b chronic pancreatitis, iron deficiency anemia, ??GERD??c/b??esophagitis &??Farrell's esophagus, who was admitted to [facility] on [place]22 (now on Hospital Day #18), and transferred to Hospital Medicine team from Cardiology on 08/30 for mixed shock with concern for stress cardiomyopathy (Takotsubo Cardiomyopathy). 24 HOUR EVENTS & SUBJECTIVE: Yesterday: - MBS performed, ELEVATOR EXAMINER recommend NPO with ice chips for pleasure [...] Gas): No results found for: PHART, PO2ART, JLX8JIS, FMA2LYO VBG (Venous Blood Gas): No results for input(s): PHVEN, LDT1QTW, PO2VEN, XVI3CHD, BEVEN, SLU8KKF in the last 72 hours. EKG: Lab [...] Date/Time Lower Respiratory Culture Bronchial Alveolar Lavage [[id number]] Collected: 08/21/221649 Lab Status: Final result Specimen: Bronchial Alveolar Lavage Updated: 08/23/22 0741 Lower Respiratory Culture Rare mixed bacterial morphotypes suggestive of normal upper respiratory wiley Gram Stain -- Few Neutrophils seen No squamous epithelial cells seen No microorganisms seen. Fungus Culture & Calc Stain Bronchial Alveolar Lavage [[id number]] (Abnormal) Collected: 08/21/221649 Lab Status: Preliminary result Specimen: Bronchial Alveolar Lavage Updated: 08/24/22 1452 AFB culture Bronchial Alveolar Lavage [[id number]] Collected: 08/21/22 165 Lab Status: Preliminary result Specimen: Bronchial Alveolar Lavage Updated: 08/24/22 2219 Acid Fast Bacilli Culture -- No Acid Fast Bacilli isolated to date If active tuberculosis is suspected, the patient should be on AIRBORNE PRECAUTIONS. Call Infection Prevention for assistance if needed. Acid Fast Stain No Acid Fast Bacilli seen Fungus culture [[id number]] (Abnormal) Collected: 08/21/221649 Lab Status: Preliminary result Specimen: Bronchial Alveolar Lavage Updated: 08/24/22 1452 Fungus Culture Rare Jacky albicans Calcofluor White Stain [[id number]] Collected: 08/21/221649 Lab Status: Final result Specimen: Bronchial Alveolar Lavage Updated: 08/21/222015 Calcofluor Stain Calcofluor White Preparation: Negative Lower Respiratory Culture Bronchial Alveolar Lavage [[id number]] Collected: 08/21/221644 Lab Status: Final result Specimen: Bronchial Alveolar Lavage Updated: 08/23/22 0741 Lower Respiratory Culture Rare mixed bacterial morphotypes suggestive of normal upper respiratory wiley Gram Stain -- Moderate Neutrophils seen No squamous epithelial cells seen No microorganisms seen. Fungus Culture & Calc Stain Bronchial Alveolar Lavage [[id number]] (Abnormal) Collected: 08/21/221644 Lab Status: Preliminary result Specimen: Bronchial Alveolar Lavage Updated: 08/24/22 145 AFB culture Bronchial Alveolar Lavage [[id number]] Collected: 08/21/221644 Lab Status: Preliminary result Specimen: Bronchial Alveolar Lavage Updated: 08/24/22 2221 Acid Fast Bacilli Culture -- No Acid Fast Bacilli isolated to date If active tuberculosis is suspected, the patient should be on AIRBORNE PRECAUTIONS. Call Infection Prevention for assistance if needed. Acid Fast Stain No Acid Fast Bacilli seen Fungus culture [[id number]] (Abnormal) Collected: 08/21/22 164 Lab Status: Preliminary result Specimen: Bronchial Alveolar Lavage Updated: 08/24/22 145 Fungus Culture Rare Jacky albicans Calcofluor White Stain [[id number]] Collected: 08/21/221644 Lab Status: Final result Specimen: Bronchial Alveolar Lavage Updated: 08/21/222016 Calcofluor Stain Calcofluor White Preparation: Negative Blood culture [[id number]] Collected: 08/19/22 1720 Lab Status: Final result Specimen: Blood Updated: 08/24/22 2301 Blood Culture No growth at 5 days. Lower Respiratory Culture Sputum Induced [[id number]] Collected: 08/19/22 1451 Lab Status: Final result Specimen: Sputum Induced Updated: 08/21/22 0948 Lower Respiratory Culture Rare mixed bacterial morphotypes suggestive of normal upper respiratory wiley Gram Stain -- Many Neutrophils seen Few squamous epithelial cells seen No microorganisms seen. Blood culture [[id number]] Collected: 08/19/22 1330 Lab Status: Final result Specimen: Blood Updated: 08/24/22 1501 Blood Culture No growth at 5 days. Legionella Urinary Antigen [[id number]] Collected: 08/18/22 1013 Lab Status: Final result [...] Catheter Urine; Other; sepsis, bacteria on UA [[id number]] Collected: 08/15/22 1225 Lab Status: Final result Specimen: Indwelling Catheter Urine Updated: 08/16/22 0804 Urine Culture 1,000-9,000 cfu/ml Insignificant growth COVID-19 PCR [[id number]] Collected: 08/15/22 1150 Lab Status: Final result [...] using the Simplexa COVID-19 Direct Assay by [employer] as authorized by the FDA issued Emergency [...] Department of Pathology and Laboratory Medicine at [facility], certified under the Clinical Laboratory Improvement Amendments [...] fact sheets at the following FDA website: https://www.fda.gov/medical-devices/ovusavxawzs-jjvagno-6615-hyjfl-68-iahuwghzv- rxp-nwzgifdllxooai-ymsqdad-devices/ydtvb-agvxjmdmief-wygy SARS-CoV-2 Source MAINFRAME ARCHITECT Swab Lower Respiratory Culture Sputum Induced [[id number]] Collected: 08/15/22 0740 Lab Status: Final result Specimen: Sputum Induced Updated: 08/17/22 1015 Lower Respiratory Culture Rare normal upper respiratory wiley Gram Stain -- Many Neutrophils Few squamous epithelial cells Rare mixed bacterial morphotypes suggestive of normal upper respiratory wiley Blood culture [[id number]] Collected: 08/15/22 0110 Lab Status: Final result Specimen: Blood Updated: 08/20/22 0701 Blood Culture No growth at 5 days. MRSA PCR Screen ([facility]CGP/APD/NLH) [[id number]] Collected: 08/15/22 0050 Lab Status: Final result Specimen: Nasopharyngeal Swab Updated: 08/17/22 1419 MRSA Result Negative MRSA Interp -- Methicillin-resistant Staphylococcus aureus (MRSA) is NOT DETECTED The MRSA target DNA sequences (mec and SCC) were not detected within the acceptable ranges using the Xpert MRSA NxG on the GeneXpert Dx System (Unfold). This suggests the absence of MRSA in the patient specimen submitted for testing. This test is cleared by the U.S. Food and Drug Administration for clinical use and its performance characteristics have been verified by the [facility] at [facility]. This result does not rule out the presence of any other organisms. Rare false negative results may occur if MRSA is present at low concentrations with much higher concentrations of other organisms including MRSE or S. aureus with an empty SCC cassette. Comment: [VERIFIED DATE]08.17.22 Verified By:Shannon Smiley (Electronic Signature) Blood culture [[id number]] Collected: 08/14/22 3509 Lab Status: Final result Specimen: Blood Updated: [...] who have questions please contact the health infant childcare provider that requested your imaging first. Electronically signed by: Davi Terry MD, [facility] ([phone]), at 08/15/2022 3:53 AM XR Abdomen 1 [...] who have questions please contact the health infant childcare provider that requested your imaging first. Electronically signed by: Liliane Adams MD, [facility] ([phone]), at 08/15/2022 9:05 AM XR Chest One [...] who have questions please contact the health infant childcare provider that requested your imaging first. Electronically signed by: Davi Terry MD, [facility] ([phone]), at 08/15/2022 3:55 AM XR Abdomen 1 [...] who have questions please contact the health infant childcare provider that requested your imaging first. Chest One [...] who have questions please contact the health infant childcare provider that requested your imaging first. Electronically signed by: Alfonso Adams MD, [facility] ([phone]), at 08/16/2022 10:[address] Head wo [...] who have questions please contact the health infant childcare provider that requested your imaging first. Electronically signed by: Moustapha Correa MD, [facility] ([phone]), at 08/16/2022 11:19 PM XR Abdomen 1 [...] who have questions please contact the health infant childcare provider that requested your imaging first. Electronically signed by: Jenn Pina MD, [facility] ([phone]), at 08/17/2022 2:[address] Head wo Contrast (Generic) (Exam End: 08/18/2022 3:14 PM) Impression No acute intracranial process. Thank you for letting us participate in the care of this patient. If you are a health care provider and have any questions regarding this report, please contact the number below. For patients who have questions please contact the health infant childcare provider that requested your imaging first. Electronically signed by: Antonio Jordan MD, [facility] ([phone]), at 08/18/2022 3:18 PM XR Chest One [...] who have questions please contact the health infant childcare provider that requested your imaging first. Electronically signed by: Alan De Guzman MD, [facility] ([phone]), at 08/19/2022 3:14 PM MRI Brain wo Contrast (Exam End: 08/19/2022 10:15 PM) Impression No acute infarction, mass or mass effect. Thank you for letting us participate in the care of this patient. If you are a health care provider and have any questions regarding this report, please contact the number below. For patients who have questions please contact the health infant childcare provider that requested your imaging first. Electronically signed by: Jagdeep Lee MD, [facility] ([phone]), at 08/20/2022 3:34 AM XR Chest for [...] who have questions please contact the health infant childcare provider that requested your imaging first. Electronically signed by: Alan De Guzman MD, [facility] ([phone]), at 08/19/2022 4:[address] Hip w [...] who have questions please contact the health infant childcare provider that requested your imaging first. Electronically signed by: Aicha Chowdhury MD, [facility] ([phone]), at 08/21/2022 9:[address] Chest w [...] who have questions please contact the health infant childcare provider that requested your imaging first. Electronically signed by: Jagdeep Lee MD, [facility] ([phone]), at 08/21/2022 6:56 AM XR Hip 2-3 Views Left (Exam End: 08/22/2022 12:19 AM) Impression No radiographic evidence of infection. Thank you for letting us participate in the care of this patient. If you are a health care provider and have any questions regarding this report, please contact the number below. For patients who have questions please contact the health infant childcare provider that requested your imaging first. Electronically signed by: Viktor Cervantes MD, [facility] ([phone]), at 08/22/2022 12:43 PM XR Pelvis (Generic) (Exam End: 08/22/2022 12:19 AM) Impression No radiographic evidence of infection status post left hip ORIF. Thank you for letting us participate in the care of this patient. If you are a health care provider and have any questions regarding this report, please contact the number below. For patients who have questions please contact the health infant childcare provider that requested your imaging first. Electronically signed by: Richard Billings MD, [facility] ([phone]), at 08/22/2022 10:[address] Angiogram Coronary [...] who have questions please contact the health infant childcare provider that requested your imaging first. Electronically signed by: Arlette Mays MD, [facility] ([phone]), at 08/27/2022 11:[address] Chest wo Contrast (Generic) (Exam End: 08/27/2022 8:58 AM) Impression Stable findings of multifocal pneumonia. No interval abnormality. Thank you for letting us participate in the care of this patient. If you are a health care provider and have any questions regarding this report, please contact the number below. For patients who have questions please contact the health infant childcare provider that requested your imaging first. Electronically signed by: MINH QUIROGA MD, [facility] ([phone]), at 08/27/2022 10:48 AM XR Fluoro Barium [...] who have questions please contact the health infant childcare provider that requested your imaging first. Electronically signed by: Aron Billings MD, [facility] ([phone]), at 08/31/2022 12:02 PM Medications: Scheduled: ??? [...] anemia,??GERD??c/b??esophagitis &??Farrell's esophagus, who was admitted to [facility] on 08/14/2022 (now on Hospital Day #18) [...] level 08/29. - level 25mg/L 08/29 - ELEVATOR EXAMINER to evaluate, Recommend NPO at present - [...] Medicine PGY1 Medicine Team: Jose Juan, Pager #[phone] Date: 09/01/2022 Associated attestation - Tenisha Sandy [...] well. 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 Objective Temp: [36.5 ??C (97.7 ??F)-37.2 ??C [...] deficiency anemia,??GERD??c/b??esophagitis &??Farrell's esophagus??presenting in transfer from [facility], suspected to be in cardiogenic shock and [...] of 98mls/hr Monitoring: Q4 Elsie Erickson APRN [facility] Endocrinology Diabetes Management Pager [phone] minutes of this 35 minute visit was spent reviewing diabetes and treatment plan, reviewing all glucose and insulin data as well as relevant laboratory results with the patient, and coordination ofcare on the inpatient unit including nursing and primary team. * Petty Mccullough, ELEVATOR EXAMINER - 08/31/2022 10:16 AM EDT Speech-Language Pathology Modified Barium Swallow Evaluation Patient Profile:??Ishan Irving is a 62 year old female with a medical history notable for??recent L femoral neck fracture,??bipolar disorder, resolving medication-induced Parkinsonism, insulin-dependent diabetes mellitus,??hx of alcohol use disorder (reported to be in remission for 1.5 years)c/b chronic pancreatitis, iron deficiency anemia,??GERD??c/b??esophagitis &??Farrell's esophagus??presenting in transfer from [facility]??on 08/14/2022, suspected to be in cardiogenic shock and found to be in mixed shock with concern for stress cardiomyopathy.??ELEVATOR EXAMINER service was consulted to assess oropharyngeal swallow [...] cup, by straw with attempted chin tuck. [place] consistency thickened liquid by spoon x1, by [...] x2 ??? Posterior laryngeal portion of epiglottis: [place]-thick by spoon ??? Pyriform Sinuses: Thin liquids by cup, [place]-thick liquids by strawe ??? Airway: Thin liquids [...] the vocal cords, but is not ejected: [place]-thick liquids 4 = material enters the airway, [...] nutrition/hydration to provide nutrition during rehab course. ELEVATOR EXAMINER will f/u for ongoing swallow intervention and therapeutic trials. Barium swallow (esophagram) will be helpful at later date, however Pt is at high potential for aspiration during study d/t positioning requirements for barium swallow. Pt would benefit from skilled ELEVATOR EXAMINER services to maximize swallow function and safety [...] questions or concerns. Petty Mccullough, BRAYDON MS, CCC-ELEVATOR EXAMINER Pager: [phone] Speech-Language Pathology Inpatient Rehabilitation Department * Gene [...] deficiency anemia,??GERD??c/b??esophagitis &??Farrell's esophagus??presenting in transfer from [facility], suspected to be in cardiogenic shock and [...] TA x 2 GENE YOUNG, PT Pager: [phone] Physical Therapy Inpatient Rehabilitation Department * Nancy Ernst, RD - 08/31/2022 8:21 AM EDT Nutrition Progress Note Ishan Irving is a 62 y.o.??female??with h/o bipolar, DM, EtOH, esophagitis, who presented to [facility] 3 days ago after being found unresponsive at home.?Patient found to have likely pneumonia +/- aspiration, newly reduced EF. Reason for Assessment: Follow-up, Tube Feeding Nutrition Recommendations: Enteral Nutrition: Cyclic Peptamen AF at 110ml/hr for 12hrs from [id number] At goal, this will provide: Peptamen AF Total Volume Per Day: 1320 mL Scoops of Protein: 0 Calories per Day: 1584 Protein per Day: 100 g Free Water mL per Day: 1072 % RDI: 106 % Monitor hydration status on above TFs as they are concentrated. Pt may need additional fluids depending on IVFs, med flushes, p.o. Intake, etc. Diet per ELEVATOR EXAMINER Monitor weight to trend Monitor BM. Goal [...] encounter: 67.7 kg (149 lb 4.8 oz). [place] Body Weight (IBW) (kg): 45.45 Usual Body [...] 08/25 r/t liquid tylenol, d/c per this principal technical writer's request as liquid tylenol acts as [...] up while inpatient Nancy Ernst RD Pager #:[phone] * Irwin Jones MD - 08/31/2022 7:09 AM EDT Images from the original note were not included. Inpatient Hospital Medicine Progress Note 08/31/2022 Patient Name: ISHAN IRVING Date of : 1960 Age: 62 y.o. Hospital Admit Date: 08/14/2022 Hospital Day: 17 Inpatient Attending: Alfonso Navarrete MD PCP: Chris Stanley APRN ([phone]) No chief complaint on file. ID: Ishan Irving is a 62 y.o. 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.5 years) c/b chronic pancreatitis, iron deficiency anemia, ??GERD??c/b??esophagitis &??Farrell's esophagus, who was admitted to [facility] on 08/14/2022 (now on Hospital Day #17), and transferred to Hospital Medicine team from Cardiology on 08/30 for mixed shock with concern for stress cardiomyopathy (Takotsubo Cardiomyopathy). 24 HOUR EVENTS & SUBJECTIVE: Yesterday: - Patient transferred from Cards as cardiomyopathy is now stabilized on goal directed therapy - Patient, per ELEVATOR EXAMINER eval, is strict NPO given HIGH concern [...] Gas): No results found for: PHART, PO2ART, XSJ9TJP, DAP2VAH VBG (Venous Blood Gas): No results for input(s): PHVEN, MRI4JCL, PO2VEN, ZCE3BBZ, BEVEN, WUT9LKN in the last 72 hours. EKG: Lab [...] Date/Time Lower Respiratory Culture Bronchial Alveolar Lavage [[id number]] Collected: 08/21/221649 Lab Status: Final result Specimen: Bronchial Alveolar Lavage Updated: 08/23/22 0741 Lower Respiratory Culture Rare mixed bacterial morphotypes suggestive of normal upper respiratory wiley Gram Stain -- Few Neutrophils seen No squamous epithelial cells seen No microorganisms seen. Fungus Culture & Calc Stain Bronchial Alveolar Lavage [[id number]] (Abnormal) Collected: 08/21/221649 Lab Status: Preliminary result Specimen: Bronchial Alveolar Lavage Updated: 08/24/22 1452 AFB culture Bronchial Alveolar Lavage [[id number]] Collected: 08/21/221649 Lab Status: Preliminary result Specimen: Bronchial Alveolar Lavage Updated: 08/24/22 221 Acid Fast Bacilli Culture -- No Acid Fast Bacilli isolated to date If active tuberculosis is suspected, the patient should be on AIRBORNE PRECAUTIONS. Call Infection Prevention for assistance if needed. Acid Fast Stain No Acid Fast Bacilli seen Fungus culture [[id number]] (Abnormal) Collected: 08/21/221649 Lab Status: Preliminary result Specimen: Bronchial Alveolar Lavage Updated: 08/24/22 145 Fungus Culture Rare Jacky albicans Calcofluor White Stain [[id number]] Collected: 08/21/221649 Lab Status: Final result Specimen: Bronchial Alveolar Lavage Updated: 08/21/222015 Calcofluor Stain Calcofluor White Preparation: Negative Lower Respiratory Culture Bronchial Alveolar Lavage [[id number]] Collected: 08/21/221644 Lab Status: Final result Specimen: Bronchial Alveolar Lavage Updated: 08/23/2241 Lower Respiratory Culture Rare mixed bacterial morphotypes suggestive of normal upper respiratory wiley Gram Stain -- Moderate Neutrophils seen No squamous epithelial cells seen No microorganisms seen. Fungus Culture & Calc Stain Bronchial Alveolar Lavage [[id number]] (Abnormal) Collected: 08/21/221644 Lab Status: Preliminary result Specimen: Bronchial Alveolar Lavage Updated: 08/24/22 1453 AFB culture Bronchial Alveolar Lavage [[id number]] Collected: 08/21/221644 Lab Status: Preliminary result Specimen: Bronchial Alveolar Lavage Updated: 08/24/22 2221 Acid Fast Bacilli Culture -- No Acid Fast Bacilli isolated to date If active tuberculosis is suspected, the patient should be on AIRBORNE PRECAUTIONS. Call Infection Prevention for assistance if needed. Acid Fast Stain No Acid Fast Bacilli seen Fungus culture [[id number]] (Abnormal) Collected: 08/21/22 164 Lab Status: Preliminary result Specimen: Bronchial Alveolar Lavage Updated: 08/24/22 1453 Fungus Culture Rare Jacky albicans Calcofluor White Stain [[id number]] Collected: 08/21/22 164 Lab Status: Final result Specimen: Bronchial Alveolar Lavage Updated: 08/21/22 2017 Calcofluor Stain Calcofluor White Preparation: Negative Blood culture [[id number]] Collected: 08/19/22 1720 Lab Status: Final result Specimen: Blood Updated: 08/24/22 2301 Blood Culture No growth at 5 days. Lower Respiratory Culture Sputum Induced [[id number]] Collected: 08/19/22 1451 Lab Status: Final result Specimen: Sputum Induced Updated: 08/21/22 0948 Lower Respiratory Culture Rare mixed bacterial morphotypes suggestive of normal upper respiratory wiley Gram Stain -- Many Neutrophils seen Few squamous epithelial cells seen No microorganisms seen. Blood culture [[id number]] Collected: 08/19/22 1330 Lab Status: Final result Specimen: Blood Updated: 08/24/22 1501 Blood Culture No growth at 5 days. Legionella Urinary Antigen [[id number]] Collected: 08/18/22 1013 Lab Status: Final result [...] Catheter Urine; Other; sepsis, bacteria on UA [[id number]] Collected: 08/15/22 1225 Lab Status: Final result Specimen: Indwelling Catheter Urine Updated: 08/16/22 0804 Urine Culture 1,000-9,000 cfu/ml Insignificant growth COVID-19 PCR [[id number]] Collected: 08/15/22 1150 Lab Status: Final result [...] using the Simplexa COVID-19 Direct Assay by [employer] as authorized by the FDA issued Emergency [...] Department of Pathology and Laboratory Medicine at [facility], certified under the Clinical Laboratory Improvement Amendments [...] fact sheets at the following FDA website: https://www.fda.gov/medical-devices/dolrgkeiskj-zakvtwx-1707-xmrdm-05-gdusledag- inx-xbopltqkssymmc-efmvdaq-devices/qqiml-syzicyfcxli-aoqe SARS-CoV-2 Source MAINFRAME ARCHITECT Swab Lower Respiratory Culture Sputum Induced [[id number]] Collected: 08/15/22 0740 Lab Status: Final result Specimen: Sputum Induced Updated: 08/17/22 1015 Lower Respiratory Culture Rare normal upper respiratory wiley Gram Stain -- Many Neutrophils Few squamous epithelial cells Rare mixed bacterial morphotypes suggestive of normal upper respiratory wiley Blood culture [[id number]] Collected: 08/15/22 0110 Lab Status: Final result Specimen: Blood Updated: 08/20/22 0701 Blood Culture No growth at 5 days. MRSA PCR Screen ([facility]/CG[facility]/APD/NLH) [[id number]] Collected: 08/15/22 0050 Lab Status: Final result Specimen: Nasopharyngeal Swab Updated: 08/17/22 1419 MRSA Result Negative MRSA Interp -- Methicillin-resistant Staphylococcus aureus (MRSA) is NOT DETECTED The MRSA target DNA sequences (mec and SCC) were not detected within the acceptable ranges using the Xpert MRSA NxG on the GeneXpert Dx System (Unfold). This suggests the absence of MRSA in the patient specimen submitted for testing. This test is cleared by the U.S. Food and Drug Administration for clinical use and its performance characteristics have been verified by the [facility] at [facility]. This result does not rule out the presence of any other organisms. Rare false negative results may occur if MRSA is present at low concentrations with much higher concentrations of other organisms including MRSE or S. aureus with an empty SCC cassette. Comment: [VERIFIED DATE]08.17.22 Verified By:Shannon Smiley (Electronic Signature) Blood culture [[id number]] Collected: 08/14/22 2355 Lab Status: Final result [...] who have questions please contact the health infant childcare provider that requested your imaging first. Electronically signed by: Davi Terry MD, [facility] ([phone]), at 08/15/2022 3:53 AM XR Abdomen 1 [...] who have questions please contact the health infant childcare provider that requested your imaging first. Electronically signed by: iLliane Adams MD, [facility] ([phone]), at 08/15/2022 9:05 AM XR Chest One [...] who have questions please contact the health infant childcare provider that requested your imaging first. Electronically signed by: Davi Terry MD, [facility] ([phone]), at 08/15/2022 3:55 AM XR Abdomen 1 [...] who have questions please contact the health infant childcare provider that requested your imaging first. Electronically signed by: Davi Terry MD, [facility] ([phone]), at 08/15/2022 6:41 AM XR Chest One [...] who have questions please contact the health infant childcare provider that requested your imaging first. Electronically signed by: Alfonso Adams MD, [facility] ([phone]), at 08/16/2022 10:[address] Head wo [...] who have questions please contact the health infant childcare provider that requested your imaging first. Electronically signed by: Moustapha Correa MD, [facility] ([phone]), at 08/16/2022 11:19 PM XR Abdomen 1 [...] who have questions please contact the health infant childcare provider that requested your imaging first. Electronically signed by: Jenn Pina MD, [facility] ([phone]), at 08/17/2022 2:[address] Head wo Contrast (Generic) (Exam End: 08/18/2022 3:14 PM) Impression No acute intracranial process. Thank you for letting us participate in the care of this patient. If you are a health care provider and have any questions regarding this report, please contact the number below. For patients who have questions please contact the health infant childcare provider that requested your imaging first. Electronically signed by: Antonio Jordan MD, [facility] ([phone]), at 08/18/2022 3:18 PM XR Chest One [...] who have questions please contact the health infant childcare provider that requested your imaging first. Electronically signed by: Alan De Guzman MD, [facility] ([phone]), at 08/19/2022 3:14 PM MRI Brain wo Contrast (Exam End: 08/19/2022 10:15 PM) Impression No acute infarction, mass or mass effect. Thank you for letting us participate in the care of this patient. If you are a health care provider and have any questions regarding this report, please contact the number below. For patients who have questions please contact the health infant childcare provider that requested your imaging first. Electronically signed by: Jagdeep Lee MD, [facility] ([phone]), at 08/20/2022 3:34 AM XR Chest for [...] who have questions please contact the health infant childcare provider that requested your imaging first. Electronically signed by: Alan De Guzman MD, [facility] ([phone]), at 08/19/2022 4:[address] Hip w [...] who have questions please contact the health infant childcare provider that requested your imaging first. Electronically signed by: Aicha Chowdhury MD, [facility] ([phone]), at 08/21/2022 9:[address] Chest w [...] who have questions please contact the health infant childcare provider that requested your imaging first. Electronically signed by: Jagdeep Lee MD, [facility] ([phone]), at 08/21/2022 6:56 AM XR Hip 2-3 Views Left (Exam End: 08/22/2022 12:19 AM) Impression No radiographic evidence of infection. Thank you for letting us participate in the care of this patient. If you are a health care provider and have any questions regarding this report, please contact the number below. For patients who have questions please contact the health infant childcare provider that requested your imaging first. Electronically signed by: Viktor Cervantes MD, [facility] ([phone]), at 08/22/2022 12:43 PM XR Pelvis (Generic) (Exam End: 08/22/2022 12:19 AM) Impression No radiographic evidence of infection status post left hip ORIF. Thank you for letting us participate in the care of this patient. If you are a health care provider and have any questions regarding this report, please contact the number below. For patients who have questions please contact the health infant childcare provider that requested your imaging first. Electronically signed by: Richard Billings MD, [facility] ([phone]), at 08/22/2022 10:[address] Angiogram Coronary [...] who have questions please contact the health infant childcare provider that requested your imaging first. Electronically signed by: Arlette Mays MD, [facility] ([phone]), at 08/27/2022 11:[address] Chest wo Contrast (Generic) (Exam End: 08/27/2022 8:58 AM) Impression Stable findings of multifocal pneumonia. No interval abnormality. Thank you for letting us participate in the care of this patient. If you are a health care provider and have any questions regarding this report, please contact the number below. For patients who have questions please contact the health infant childcare provider that requested your imaging first. Electronically signed by: MINH QUIROGA MD, [facility] ([phone]), at 08/27/2022 10:48 AM Medications: Scheduled: ??? [...] ??? tube feeding diet 1,176 mL (08/31/22 8752) PRN: ondansetron, iohexoL, melatonin, polyethylene glycoL, senna, [...] anemia,??GERD??c/b??esophagitis &??Farrell's esophagus, who was admitted to [facility] on 08/14/2022 (now on Hospital Day #17) [...] level 08/29. - level 25mg/L 08/29 - ELEVATOR EXAMINER to evaluate, Recommend strict NPO - Reach [...] Medicine PGY1 Medicine Team: Jose Juan, Pager #[phone] Date: 08/31/2022 Associated attestation - Tenisha Sandy [...] & Farrell's esophagus presenting in transfer from [facility], suspected to be in cardiogenic shock and [...] Will check VPA trough level 08/29. - ELEVATOR EXAMINER to evaluate. - Reach out to neurology, [...] 0. GDMT for HFrEF. Appreciate psychiatry and ELEVATOR EXAMINER consultation. Rest per Dr. Avila. Roland Pruett MD, MPH, RPVI, FACC, FAHA, BRITTNEEE, [facility] Pager [phone] Cardiovascular Skein StraightenerIntelligence [place] [address] * Petty Mccullough, ELEVATOR EXAMINER - 08/28/2022 3:49 PM EDT Speech Therapy Note Patient Profile: Ishan Irving is a 62 year old female with a medical history notable for??recent L femoral neck fracture,??bipolar disorder, resolving medication-induced Parkinsonism, insulin-dependent diabetes mellitus,??hx of alcohol use disorder (reported to be in remission for 1.5 years) c/b chronic pancreatitis, iron deficiency anemia,??GERD??c/b??esophagitis &??Farrell's esophagus??presenting in transfer from [facility] on 08/14/2022, suspected to be in cardiogenic shock and found to bein mixed shock with concern for stress cardiomyopathy. ELEVATOR EXAMINER service was consulted to assess oropharyngeal swallow [...] non-productive. Bolus Presentation(s) ?? Ice chips ?? [place] thickened liquid via cup ?? Puree Oral [...] [x] [] Orientation Log Score: 21 Education: ELEVATOR EXAMINER educated re: plan of care, recs for MBS at later date. Pt in agreement, stating she would like DHT out but understands she is not ready to eat/drink yet. Assessment: Pt was seen today for a follow-up ELEVATOR EXAMINER visit. ??? Oropharyngeal swallow function characterized by [...] from staff as needed Plan: Therapy Frequency (ELEVATOR EXAMINER Eval): 2-4 times/wk Pt./family are in agreement with treatment plan. Total Minutes (Speech Language Pathology): 30 Petty Mccullough M.S., [facility]-ELEVATOR EXAMINER Inpatient Speech-Pathology Pager: [phone] * Elsie Erickson APRN - 08/28/2022 3:49 [...] deficiency anemia,??GERD??c/b??esophagitis &??Farrell's esophagus??presenting in transfer from [facility], suspected to be in cardiogenic shock and [...] of 98mls/hr Monitoring: Q4 Elsie Erickson APRN [facility] Endocrinology Diabetes Management Pager [phone] 40 minutes of this 50 minute visit was spent evaluating diabetes and treatment plan, reviewing all glucose and insulin data as well as relevant laboratory results , and coordination of care on the inpatient unit including nursing and primary team. * Shashi Young - 08/28/2022 2:46 PM EDT Mill Controller Encounter Note Patient Name: Ishan Irving : [id number] MR#: [id number] Admit Date: 08/14/2022 11:11 PM Hospital Day [...] Shashi Young - 08/28/2022 11:45 AM EDT Mill Controller Encounter Note Patient Name: Ishan Irving : [id number] MR#: [id number] Admit Date: 08/14/2022 11:11 PM Hospital Day 14 days Narrative: A response to a referral from Abby via [employer] for Spiritual support to patient and her [...] deficiency anemia,??GERD??c/b??esophagitis &??Farrell's esophagus??presenting in transfer from [facility], suspected to be in cardiogenic shock and [...] discharge: to be determined Anticipated Discharge Disposition: alf facility, acute rehabilitation facility Daily schedule / [...] 2-4 times/wk Total Minutes, Occupational Therapy: 28 ([phone]) Pager: [phone] Alicia Cook, OT 08/28/2022 Occupational Therapy Rehabilitation [...] deficiency anemia,??GERD??c/b??esophagitis &??Farrell's esophagus??presenting in transfer from [facility], suspected to be in cardiogenic shock and [...] Billing Code: TAx2 GENE YOUNG, PT Pager: [phone] Physical Therapy Inpatient Rehabilitation Department * Avani Ayala, RN - 08/28/2022 10:02 AM EDT Office of Care Management (OCM /[place] (RUPAL)Discharge planning ) Service : S1 Pager #[phone] e- reviewed. Report received from IDDRs Patient plan of care discussed with Team and Nursing to assessment for continuing care and discharge needs. [facility]: 14 DECISION MAKER: Attempt Cardiopulmonary Resuscitation - Inpatient, <no information> Ongoing Issues: This principal technical writer had a message to give Antonio a call . He has reqyested that [facility] be the referral of choice . [...] discuss discharge planning needs. ?? provide the [facility], Office of Care Management letter from the [employer] pertaining to rehabreferrals. ?? provide a letter describing our affiliations within the [facility] and educate about their right to choose where referrals are sent. ?? provide the [facility] Star Quality Rating handout. ?? review the different levels of rehab including SNF, swing, and acute. ?? provide a list of facilities within their preferred geographic area. ?? request that they provide at least three choices for referral. They have requested referrals to: [facility] ([facility]) [address] [place] [address] P: [phone] F: [phone] Does patient have COVID vaccine card: No Note routed to a [employer] who will communicate referrals to facilities and [...] planning. Avani Ayala RN CM Pager # [phone] * Reynaldo Avila MD - 08/28/2022 7:43 [...] & Farrell's esophagus presenting in transfer from [facility], suspected to be in cardiogenic shock and [...] parkinsonism/medication regimen contributing to overall slow recovery. ELEVATOR EXAMINER consulted, appreciate recs. Neuro: # Bipolar Disorder - Depakote 300 mg oral liquid per Dobhoff tube q6hr. - Continue Seroquel 100mg nightly - Will check VPA trough level 08/29. - ELEVATOR EXAMINER to evaluate. - Reach out to neurology, [...] 0. GDMT for HFrEF. Appreciate psychiatry and ELEVATOR EXAMINER consultation. Roland Pruett MD, MPH, RPVI, FACC, KOKI, SHERI, [facility] Pager [phone] Cardiovascular Skein StraightenerIntelligence [place] [address] * Cydney Moses RN - 08/28/2022 7:00 AM EDT Pt was able to sleep most of the shift and woke up intermittently for basic need request. Tube feeding restarted per protocol at 45ml/hr. * Neva Zhao DOGGER - 08/27/2022 11:52 AM EDT This DOGGER received a message this morning from Ishan's spouse, Antonio, asking for a gas card. ThisMSW and transportation RS went to talk to Antonio about his request and provide him with informationon Medicaid rides. Antonio said he is familiar with Medicaid rides, but he is not interested in using those services at this time. This DOGGER then explained that the hospital is unable to provide gas cards if Medicaid rides are available. Antonio expressed understanding of this. Atnonio then expressed frustration around the lack of support available from the state of [place], sharing that he continues to be unable to find any type of emergency assistance to help with bills and other expenses. Antonio thentalked about his support system, including their two sons that live in [place], as well as his sister and mother in [place]. Antonio said their sons plan to help [...] deficiency anemia,??GERD??c/b??esophagitis &??Farrell's esophagus??presenting in transfer from [facility], suspected to be in cardiogenic shock and found to be in mixed shock with concern for stress cardiomyopathy. She is s/p ORIF left femoral neck fracture 5 days ago at OSH. Interval History: transferred to [facility]; mcrae removed; dobhoff remains Social [...] TA x 2 GENE YOUNG PT Pager: [phone] Physical Therapy Inpatient Rehabilitation Department * Reynaldo [...] & Farrell's esophagus presenting in transfer from [facility], suspected to be in cardiogenic shock and found to be in mixed shock with concern for stress cardiomyopathy. 24 Hour Events/Subjective: Overnight: - NAEON. Intermittently disoriented, but stable overnight. This AM: - Stable from prior without significant change. Vasoactive & Sedating Medications: Infusions: Continuous Infusions: ??? tube feeding diet 900 mL (08/26/22 7143) Objective: Vitals Last value Range last 24 [...] and will check VPA level 08/29. - ELEVATOR EXAMINER to evaluate, pending recs Pulmonary: # Acute [...] the hospital. Hemodynamics stable. Still NPO per ELEVATOR EXAMINER with enteral nutrition through DHT. Proceeding with [...] and aspiration pneumonia unable to advance oralintake. Mliagros Hernandez MD Cardiovascular Medicine Personal Pager [phone] 08/27/2022 6:22 PM * Rober Mensah MD [...] time. Orthopedics to sign off. Please page [phone] with any questions or concerns. Rober Mensah MD 08/27/22 * Nancy Ernst RD - 08/27/2022 8:16 AM EDT Nutrition Progress Note Ishan Irving is a 62 y.o.??female??with h/o bipolar, DM, EtOH, esophagitis, who presented to [facility] 3 days ago after being found unresponsive at home.?Patient found to have likely pneumonia +/- aspiration, newly reduced EF. Reason for Assessment: Follow-up, Tube Feeding Nutrition Recommendations: Enteral Nutrition: Cyclic Peptamen AF at 98ml/hr for 12hrs from [id number] At goal, this will provide: Peptamen AF [...] encounter: 69.6 kg (153 lb 6.4 oz). [place] Body Weight (IBW) (kg): 45.45 Usual Body [...] 08/25 r/t liquid tylenol, d/c per this principal technical writer's request as liquid tylenol acts as [...] up while inpatient Nancy Ernst RD Pager #:[phone] * Cydney Moses RN - 08/27/2022 7:44 AM EDT Pt has been confused to situation during shift but easy to re-orient. Pt has a doboff running and wanted to keep the head of her bed flat. Had to remind pt of aspiration precaution and the importanceof keeping the HOB up. Pt has been ringing call marsahll consistently but with no basic need request. Bed alarms on for safety. Continue to monitor pt's mental status and reorient as needed. * Shalini Rush RN - 08/26/2022 5:38 PM EDT Patient arrived via bed from [facility] this afternoon in stable condition. VSS. Denies any chest pain/SOB. Feeding tube running at goal (45mL/hr). Patient A+Ox2-3. C/O of mild lower back pain. External female catheter in place d/t frequency and incontinence. Safety maintained, bed alarm on. Call light within reach. Pt oriented to room. * Neva Zhao MSW - 08/26/2022 2:30 PM EDT DOGGER received message stating that Ishan's , Antonio, is requesting social work support. Antonio shared that they have been denied support through economic services due to his disability income. Antonio also shared that he reached out to unemployment and his [employer] director of casework department, but he has not found anyone able to help with their immediate financial needs (rent, utilities). Antonio became emotional during conversation, sharing that he is concerned they will lose their home if theycan't pay their bills. DOGGER provided support and promised to follow up with resources this afternoon. UPDATE: This DOGGER called [facility] to provide information for [facility], [facility] A[facility], [facility] [employer] [facility], and the local food pantry. Antonio [...] deficiency anemia,??GERD??c/b??esophagitis &??Farrell's esophagus??presenting in transfer from [facility] on 08/14/2022, suspected to be in cardiogenic shock and found to bein mixed shock with concern for stress cardiomyopathy. ELEVATOR EXAMINER service was consulted to assess oropharyngeal swallow [...] chips ?? Thin liquid via spoon ?? [place] thickened liquid via spoon ?? via cup [...] reports pt was being followed closely by [facility] and was supposed to go for a barium swallow sometime soon so they could look at her esophagus) Education: Pt and pt's , Antonio, verbally educated by this clinician to ELEVATOR EXAMINER role, results ofthis bedside reassessment, pt current swallow status/function, aspiration risks, safe swallow technique (optimizing upright positioning) and impact of baseline esophageal history on function. Discussed plan as outlined below. Antonio verbalizes understanding and agreement; pt reports I guess so when asked if she understands. Assessment: Pt was seen today for a follow-up ELEVATOR EXAMINER visit/reassessment. Pt sitting upright in chair today [...] have a barium swallow at baseline (via reprographics technician) at some point to further assess esophageal [...] means only Continue alternative access (currently with [facility]) for primary nutrition/meds Consider GI input given baseline esophageal history? Aspiration Precautions: Excellent oral care Speech Therapy Goals: Pt will tolerate least restrictive diet without evidence of dysphagia / aspiration. Pt / caregiver will be independent with aspiration precautions, diet modifications, and safe swallowing strategies. Pt will maintain hydration / nutrition with optimal safety and efficiency. Plan: Therapy Frequency (ELEVATOR EXAMINER Eval): 2-4 times/wk Patient / family are in agreement with treatment plan. Total Minutes (Speech Language Pathology): 25 Thank you for this consult with this patient. Please feel free to page me with any questions or concerns. Afia Bergeron M.S., [facility]-ELEVATOR EXAMINER Pager: [phone] Speech-Language Pathology Inpatient Rehabilitation Medicine * Moustapha [...] & Farrell's esophagus presenting in transfer from [facility], suspected to be in cardiogenic shock and [...] this AM. She has been working with ELEVATOR EXAMINER/PT/OT and would benefit from continuation. Plan to obtain CT chest and CTA Coronaries today/tomorrow. Neuro: # Bipolar Disorder - Depakote 190 mg oral liquid per Dobhoff - Continue Seroquel 25mg nightly - Plan to increase to full home regimen (250mg QPM / 1g Q3PM) by 08/24. - ELEVATOR EXAMINER to evaluate, pending recs Pulmonary: # Acute [...] Milagros Hernandez MD Cardiovascular Medicine Personal Pager [phone] 08/26/2022 5:28 PM * Gene Young, PT [...] deficiency anemia,??GERD??c/b??esophagitis &??Farrell's esophagus??presenting in transfer from [facility], suspected to be in cardiogenic shock and [...] plan as stated. Time IN / OUT: 9510-5886 Total Minutes, Physical Therapy: 20 Billing Code: TA x 1 GENE YOUNG, PT Pager: [phone] Physical Therapy Inpatient Rehabilitation Department * DreSeElsie G, INTEGRATION PROJECT MANAGER - 08/26/2022 8:37 AM EDT Follow Up [...] deficiency anemia,??GERD??c/b??esophagitis &??Farrell's esophagus??presenting in transfer from [facility], suspected to be in cardiogenic shock and [...] tid ac & hs Elsie Erickson APRN [facility] Endocrinology Diabetes Management Pager [phone] * Chiquita Mukherjee, PT - 08/25/2022 5:24 [...] deficiency anemia,??GERD??c/b??esophagitis &??Farrell's esophagus??presenting in transfer from [facility], suspected to be in cardiogenic shock and [...] ta x 3 CHIQUITA MUKHERJEE PT Pager: [phone] Physical Therapy Inpatient Rehabilitation Department * Shea Wilkinson - 08/25/2022 4:15 PM EDT Mill Controller Encounter Note Patient Name: Ishan Irving : [id number] MR#: [id number] Admit Date: 08/14/2022 11:11 PM Hospital Day [...] Shashi Young - 08/25/2022 1:30 PM EDT Mill Controller Encounter Note Patient Name: Ishan Irving : [id number] MR#: [id number] Admit Date: 08/14/2022 11:11 PM Hospital Day [...] deficiency anemia,??GERD??c/b??esophagitis &??Farrell's esophagus??presenting in transfer from [facility], suspected to be in cardiogenic shock and found to be in mixed shock with concern for stress cardiomyopathy. She is s/p ORIF left femoral neck fracture 5 days ago. Past Medical History: Diagnosis Date ??? Bipolar disorder 02/12/2022 Past Surgical History: Procedure Laterality Date ??? PRO COLONOSCOPY, BIOPSY N/A 03/20/2016 COLONOSCOPY FLEXIBLE, WITH BX performed by David Dejesus MD at [facility] ??? PRO COLONOSCOPY, DIAGNOSTIC N/A 03/01/2020 COLONOSCOPY, DIAGNOSTIC performed by David Dejesus MD at [facility] ??? PRO ENDOSCOPIC US EXAM, ESOPH N/A 03/31/2022 UPPER EUS- ENDOSCOPIC ULTRASOUND performed by David Dejesus MD at [facility] ??? PRO UPPER GI ENDOSCOPY, BIOPSY N/A 04/03/2014 UPPER GASTROINTESTINAL ENDOSCOPY,WITH BIOPSY SINGLE OR MULTIPLE performed by [facility]at [facility] ??? PRO UPPER GI ENDOSCOPY, BIOPSY N/A 03/20/2016 EGD WITH BIOPSY performed by David Dejesus MD at [facility] ??? PRO UPPER GI ENDOSCOPY, BIOPSY N/A 11/22/2018 EGD WITH BIOPSY (WRVU 2.49) performed by David Dejesus MD at [facility] ??? PRO UPPER GI ENDOSCOPY, BIOPSY N/A 03/01/2020 UPPER GASTROINTESTINAL ENDOSCOPY,WITH BIOPSY SINGLE OR MULTIPLE (WRVU 2.49) performed by David Dejesus MD at [facility] ??? PRO UPPER GI ENDOSCOPY, BIOPSY N/A 09/23/2021 EGD WITH BIOPSY (WRVU 2.49) performed by David Dejesus MD at [facility] ??? PRO UPPER GI ENDOSCOPY, BIOPSY N/A 03/31/2022 EGD WITH BIOPSY (WRVU 2.49) performed by David Dejesus MD at [facility] ??? PRO UPPER GI ENDOSCOPY, BIOPSY N/A 07/03/2022 EGD WITH BIOPSY (WRVU 2.49) performed by David Dejesus MD at [facility] ??? PRO UPPER GI ENDOSCOPY, DIAGNOSTIC N/A 04/03/2014 EGD, UPPER GI ENDOSCOPY performed by David Dejesus MD at [facility] ??? PRO UPPER GI ENDOSCOPY, DIAGNOSTIC N/A 03/01/2020 EGD, UPPER GI ENDOSCOPY performed by David Dejesus MD at [facility] Social History: Patient lives with her in a private home Home Setup: 3 HATTIE, then single floor DME: RW, rollator Baseline ADL/Mobility: Independent all ADL/IADL tasks. Drives. Ambulates w/o any AD. Her didier disability and she is his primary caregiver Precautions/Special Considerations: Fall; LLE WBAT; Dobhoff tube; [place] [facility]: When asked where she was [...] to be determined Anticipated Discharge Disposition (OT): alf facility Activity Recommendations: ?? Encourage use of [...] and measurable assessment of functional outcome. Pager: [phone] ADRIENNE ADLER OT 08/25/2022 Occupational Therapy Rehabilitation [...] & Farrell's esophagus presenting in transfer from [facility], suspected to be in cardiogenic shock and [...] first dose, check VPA level (08/24) - ELEVATOR EXAMINER to evaluate, pending recs Pulmonary: # Acute [...] barium swallow at this point and that ELEVATOR EXAMINER is evaluating her regularly. Will plan for CTA cors and chest tomorrow rather than cath- discussed with . Transition from insulin gtt to basal/bolus, appreciate assistance of DM team. Milagros Hernandez MD Cardiovascular Medicine Personal Pager [phone] 08/25/2022 1:51 PM * Afia Bergeron, ELEVATOR EXAMINER - 08/24/2022 5:57 PM EDT Speech Therapy [...] stool ball on CT. Plan is for [facility] medically optimized. ELEVATOR EXAMINER service consulted 08/22/22 to assess oropharyngeal swallow [...] esophageal dysfunction Education: Pt verbally educated to ELEVATOR EXAMINER role, results of this bedside reasesssment, and plan as outlined below. Pt verbalizes understanding and agreement with plan. Assessment: Pt was seen today for a follow-up ELEVATOR EXAMINER visit/reassessment. Continues to demonstrate oropharyngeal dysphagia and overt signs of aspiration with trials at the bedside today. Suboptimal positioning likely contributing as pt refuses to sit upright > 30/40 degrees today, also easy to fatigue. For now will suggest ice chips in moderation with RN for oral comfort and swallow stimulation when she is awake/alert and agrees to sit more upright. ELEVATOR EXAMINER will continue to follow with team. Pt [...] good candidate for the current oral care line pilot program taking place on specific units at [facility]. Please use LE oral suction toothbrushes to perform oral care 2-4x daily. ?? Pt will benefit from continued ELEVATOR EXAMINER services while hospitalized Speech Therapy Goals: Pt will tolerate least restrictive diet without evidence of dysphagia / aspiration. Pt / caregiver will be independent with aspiration precautions, diet modifications, and safe swallowing strategies. Pt will maintain hydration / nutrition with optimal safety and efficiency. Plan: Therapy Frequency (ELEVATOR EXAMINER Eval): 2-3 times/wk Patient / family are in agreement with treatment plan. Total Minutes (Speech Language Pathology): 25 Thank you for this consult with this patient. Please feel free to page me with any questions or concerns. Afia Bergeron M.S., [facility]-ELEVATOR EXAMINER Pager: [phone] Speech-Language Pathology Inpatient Rehabilitation Medicine * Danielito [...] 1-5 /HPF Hypochromia Slight Ovalocytes 1-5 /HPF Newman Cells 1-5 /HPF Platelet Clumps Present POCT [...] stool ball on CT. Plan is for [facility] when medically optimized. Referred to PT for evaluation. Patient with the following active problems: Past Medical History: Diagnosis Date ??? Bipolar disorder 02/12/2022 Past Surgical History: Procedure Laterality Date ??? PRO COLONOSCOPY, BIOPSY N/A 03/20/2016 COLONOSCOPY FLEXIBLE, WITH BX performed by David Dejesus MD at [facility] ??? PRO COLONOSCOPY, DIAGNOSTIC N/A 03/01/2020 COLONOSCOPY, DIAGNOSTIC performed by David Dejesus MD at [facility] ??? PRO ENDOSCOPIC US EXAM, ESOPH N/A 03/31/2022 UPPER EUS- ENDOSCOPIC ULTRASOUND performed by David Dejesus MD at [facility] ??? PRO UPPER GI ENDOSCOPY, BIOPSY N/A 04/03/2014 UPPER GASTROINTESTINAL ENDOSCOPY,WITH BIOPSY SINGLE OR MULTIPLE performed by [facility] MDat [facility] ??? PRO UPPER GI ENDOSCOPY, BIOPSY N/A 03/20/2016 EGD WITH BIOPSY performed by David Dejesus MD at [facility] ??? PRO UPPER GI ENDOSCOPY, BIOPSY N/A 11/22/2018 EGD WITH BIOPSY (WRVU 2.49) performed by David Dejesus MD at [facility] ??? PRO UPPER GI ENDOSCOPY, BIOPSY N/A 03/01/2020 UPPER GASTROINTESTINAL ENDOSCOPY,WITH BIOPSY SINGLE OR MULTIPLE (WRVU 2.49) performed by David Dejesus MD at [facility] ??? PRO UPPER GI ENDOSCOPY, BIOPSY N/A 09/23/2021 EGD WITH BIOPSY (WRVU 2.49) performed by David Dejesus MD at [facility] ??? PRO UPPER GI ENDOSCOPY, BIOPSY N/A 03/31/2022 EGD WITH BIOPSY (WRVU 2.49) performed by David Dejesus MD at [facility] ??? PRO UPPER GI ENDOSCOPY, BIOPSY N/A 07/03/2022 EGD WITH BIOPSY (WRVU 2.49) performed by David Dejesus MD at [facility] ??? PRO UPPER GI ENDOSCOPY, DIAGNOSTIC N/A 04/03/2014 EGD, UPPER GI ENDOSCOPY performed by David Dejesus MD at [facility] ??? PRO UPPER GI ENDOSCOPY, DIAGNOSTIC N/A 03/01/2020 EGD, UPPER GI ENDOSCOPY performed by David Dejesus MD at [facility] Social History: Pt was not able [...] Objective: Pt seen for evaluation today in [facility]. Upon arrival, pt lying in bed [...] for this consult. GENE YOUNG, PT Pager: [phone] Physical Therapy Inpatient Rehabilitation Department Time IN / OUT: 0930-0617 Total Time: (P) 40 (([phone])) minutes, GENE YOUNG, PT Pager: [phone] Physical Therapy Inpatient Rehabilitation Department 2017 PT [...] bipolar, DM, EtOH, esophagitis, who presented to [facility] 3 days ago after being found unresponsive [...] was able to discuss plan with provider [facility] 1357. Current Nutrition Regimen: Active Orders Diet NPO [...] encounter: 69.3 kg (152 lb 12.5 oz). [place] Body Weight (IBW) (kg): 45.45 Wt Readings [...] up while inpatient Nancy Ernst RD Pager #:[phone] * Moustapha Gallegos MD - 08/24/2022 6:09 [...] & Farrell's esophagus presenting in transfer from [facility], suspected to be in cardiogenic shock and [...] first dose, check VPA level (08/24) - ELEVATOR EXAMINER to evaluate Pulmonary: # Acute hypoxic respiratory [...] scans with [facility] for now. Will ask ELEVATOR EXAMINER to reassess and consult PT/OT for mobilization [...] Milagros Hernandez MD Cardiovascular Medicine Personal Pager [phone] 08/24/2022 2:26 PM * Aileen Mayorga MD [...] Santos, DO ID Fellow Red Team Pager: [phone] ID ATTENDING I agree with assessment and recommendations above. I reviewed the data set and guided decision-making but did not re-examine the patient today. Parris Leyva MD Page [phone] * Neva Tomlin MD - 08/23/2022 7:09 [...] & Farrell's esophagus presenting in transfer from [facility], suspected to be in cardiogenic shock and [...] manage secretions and severedysphagia likely the underlying semi driver of her multifocal pneumonia. We will [...] Milagros Hernandez MD Cardiovascular Medicine Personal Pager [phone] 08/23/2022 8:44 PM * Briana Bryant, ELEVATOR EXAMINER - 08/22/2022 12:30 PM EDT Speech Therapy [...] deficiency anemia,??GERD??c/b??esophagitis &??Farrell's esophagus??presenting in transfer from [facility], suspected to be in cardiogenic shock and [...] good candidate for the current oral care line pilot program taking place on specific units at [facility]. Please use LE oral suction toothbrushes to perform oral care 2-4x daily. Pt will benefit from continued ELEVATOR EXAMINER services while hospitalized Speech Therapy Goals: (To [...] Pt./family are in agreement with treatment plan. ELEVATOR EXAMINER session: 24 min Thank you for this consult with this patient. Please feel free to page me with any questions or concerns. Briana Bryant MA, CCC-ELEVATOR EXAMINER Pager: [phone] Speech-Language Pathology Inpatient Rehabilitation Medicine * Aileen [...] & Farrell's esophagus presenting in transfer from [facility], suspected to be in cardiogenic shock and [...] troublemanaging her secretions and overtly failed her ELEVATOR EXAMINER evaluation as expected. She is being maintained [...] Milagros Hernandez MD Cardiovascular Medicine Personal Pager [phone] 08/22/2022 4:13 PM * Rock Purcell, RT [...] 10/8 21%, alert oriented and following commands. [id number]: SBT Passed on CPAP +5 21%, Pre [...] for Consult? finanacial concerns Social Work Response: DOGGER met with Ishan's , Antonio, and their son to offer support and follow up on social work consult. DOGGER encouraged Antonio to reach out to their Choices for Care liaisonfor questions related to caregiver benefits, including short term disability. DOGGER also provided Antonio with information for Emergency/General Assistance and [place] [phone]. This DOGGER provided contact information for the Office of [...] & Farrell's esophagus presenting in transfer from [facility], suspected to be in cardiogenic shock and [...] PHART 7.56* -- 7.54* 7.51* 7.48* 7.53* EWO8CPX 31* -- 31* 30* 34* 26* PO2ART 92 -- 73* 62* 78* 48* CIV3JMN 27.3* -- 25.7 23.2 25.0 21.2 LACTATEVEN 1.6 1.6 1.2 1.6 1.5 1.3 DUP5YWJ 30 -- 30 30 30 21 PFRATIOART2 307 -- 243 207 260 229 VBG (Venous Blood Gas) Recent Labs 08/20/22 0541 08/19/22 1445 08/19/22 0507 08/18/2261408/16/222008 LACTATEVEN 1.6 1.6 1.2 1.6 1.5 Mixed Venous Sat Recent Labs 08/16/22201108/16/22 1558 08/16/22 1211 08/16/22 1117 08/16/22 0948 [id number] 56.6 50.5 56.0 49.3 56.5 Objective: Vitals [...] PHART 7.56* -- 7.54* 7.51* 7.48* 7.53* [id number] 31* -- 31* 30* 34* 26* PO2ART 92 -- 73* 62* 78* 48* AXA8YWG 27.3* -- 25.7 23.2 25.0 21.2 LACTATEVEN 1.6 1.6 1.2 1.6 1.5 1.3 ITY8XZW 30 -- 30 30 30 21 PFRATIOART2 307 -- 243 207 260 229 VBG (Venous Blood Gas) Recent Labs 08/20/22 0541 08/19/22 1445 08/19/22 0507 08/18/2215 08/16/222008 LACTATEVEN 1.6 1.6 1.2 1.6 1.5 Mixed Venous Sat Recent Labs 08/16/22201108/16/22 1558 08/16/22 1211 08/16/22 1117 08/16/22 0948 O7PHTO6 56.6 50.5 56.0 49.3 56.5 Microbiology: 08/19, [...] stable. Continue supportive care. Appreciate input from data quality consultant services. Attending Attestation and Certification Please [...] Milagros Hernandez MD Cardiovascular Medicine Personal Pager [phone] 08/21/2022 3:38 PM * Parris Leyva MD [...] Garsia MD Infectious Diseases Fellow- PGY4 Pager: [phone] 08/21/2022 8:14 AM ID ATTENDING I agree [...] should be followed. Parris Leyva MD Page [phone] All of this 35 minute visit were spent on the unit in coordination of care for the patient, regarding treatment of infection as detailed in note above. * Nancy Ernst RD - 08/21/2022 8:10 AM EDT Nutrition Progress Note Ishan Irving is a 62 y.o.??female??with h/o bipolar, DM, EtOH, esophagitis, who presented to [facility] 3 days ago after being found unresponsive [...] was able to discuss plan with provider [facility] 5908. Current Nutrition Regimen: Active Orders Diet NPO [...] encounter: 72.5 kg (159 lb 13.3 oz). [place] Body Weight (IBW) (kg): 45.45 Wt Readings [...] up while inpatient Nancy Ernst RD Pager #:[phone] * Graciela Mcleod RCP - 08/21/2022 6:09 [...] support. There was no answer, so this principal technical writer left voicemail with contact information. UPDATE: MACY received call back from Ishan's , Antonio, this afternoon. This DOGGER and Antonio plan to meet when he is at the hospital tomorrow to discuss his questions related to disability benefits. Follow Up Needed: Follow for SW support * Alfonso Blackwood MD - 08/20/2022 8:26 AM EDT Critical Care Medicine Staff Progress Note 62 y.o. female with h/o bipolar, DM, EtOH, esophagitis, who presented to [facility] 3 days ago after being found unresponsive at home. Patient found to have likely pneumonia +/- aspiration, newly reduced EF. 24 hr events/subjective: -on beta blockers -afebrile, high WBC -Secretions - moderate -I/Os positive last 24 hours -now following commands. -MRI results reviewed. ASSESSMENT, MANAGEMENT, and DECISION MAKING: Patient is a 62 yo female with h/o bipolar, EtOH who presented to [facility] 08/12 after being found unresponsive by . [...] & Farrell's esophagus presenting in transfer from [facility], suspected to be in cardiogenic shock and [...] PHART 7.56* -- 7.54* 7.51* 7.48* 7.53* TWU2VMD 31* -- 31* 30* 34* 26* PO2ART 92 -- 73* 62* 78* 48* VLE0FVM 27.3* -- 25.7 23.2 25.0 21.2 LACTATEVEN 1.6 1.6 1.2 1.6 1.5 1.3 IHY3MHT 30 -- 30 30 30 21 PFRATIOART2 307 -- 243 207 260 229 VBG (Venous Blood Gas) Recent Labs 08/20/22 0541 08/19/22 1445 08/19/22 0507 08/18/2261408/16/222008 LACTATEVEN 1.6 1.6 1.2 1.6 1.5 Mixed Venous Sat Recent Labs 08/16/22201108/16/22 1558 08/16/22 1211 08/16/22 1117 08/16/22 0948 F4XFSK5 56.6 50.5 56.0 49.3 56.5 Objective: Vitals [...] PHART 7.56* -- 7.54* 7.51* 7.48* 7.53* GWM1OYX 31* -- 31* 30* 34* 26* PO2ART 92 -- 73* 62* 78* 48* DTP9ZZJ 27.3* -- 25.7 23.2 25.0 21.2 LACTATEVEN 1.6 1.6 1.2 1.6 1.5 1.3 PHJ0EMR 30 -- 30 30 30 21 PFRATIOART2 307 -- 243 207 260 229 VBG (Venous Blood Gas) Recent Labs 08/20/22 0541 08/19/22 1445 08/19/22 0507 08/18/22 0615 08/16/222008 LACTATEVEN 1.6 1.6 1.2 1.6 1.5 Mixed Venous Sat Recent Labs 08/16/22201108/16/22 1558 08/16/22 1211 08/16/22 1117 08/16/22 0948 V2DGYL5 56.6 50.5 56.0 49.3 56.5 Microbiology: 08/14, [...] potential sources identified. Low overall suspicion for MANAGER COMBINATION infection given recent MRI and improvement in [...] Shashi Young - 08/19/2022 1:25 PM EDT Mill Controller Encounter Note Patient Name: Ishan Irving : [id number] MR#: [id number] Admit Date: 08/14/2022 11:11 PM Hospital Day 5 days Narrative: Self initiated visit to patient for Spiritual support in a regular unit rounds. Assessment: Patient is very busy with nurses. Not a good time for Telecommunications Repairer visit. Intervention and Outcome: An attempted visit [...] for Consult? finanacial concerns Social Work Response: DOGGER attempted to contact Ishan's , Antonio, to offer support. No one picked up, so DOGGER left message with contact information. Follow Up Needed: Follow for continued support. * Neva Erazo PT - 08/19/2022 11:37 AM EDT PT Note Pt remains intubated and not yet approp for PT evaluation. Will follow-up when approp. Neva Erazo PT Pager [phone] * Adeola Russo RCP - 08/19/2022 9:19 [...] bipolar, DM, EtOH, esophagitis, who presented to [facility] 3 days ago after being found unresponsive [...] was able to discuss plan with provider [facility] 5901. Current Nutrition Regimen: Active Orders [...] encounter: 73.1 kg (161 lb 2.5 oz). [place] Body Weight (IBW) (kg): 45.45 Wt Readings [...] up while inpatient Nancy Ernst RD Pager #:[phone] * Carlos Terry MD - 08/19/2022 8:13 [...] & Farrell's esophagus presenting in transfer from [facility], suspected to be in cardiogenic shock and [...] 1602 PHART 7.54* 7.51* 7.48* 7.53* 7.53* SVN8NRM 31* 30* 34* 26* 30* PO2ART 73* 62* 78* 48* 55* LPJ9XGT 25.7 23.2 25.0 21.2 24.9 LACTATEVEN 1.2 1.6 1.5 1.3 1.5 ZYC7OVV 30 30 30 21 21 PFRATIOART2 243 207 260 229 262 VBG (Venous Blood Gas) Recent Labs 08/19/22 0507 08/18/22 0615 08/16/22200808/16/22 17508/16/22 1602 LACTATEVEN 1.2 1.6 1.5 1.3 1.5 Mixed Venous Sat Recent Labs 08/16/22201108/16/22 1558 08/16/22 1211 08/16/22 1117 08/16/22 0948 O4TEXM3 56.6 50.5 56.0 49.3 56.5 Objective: Vitals [...] 1602 PHART 7.54* 7.51* 7.48* 7.53* 7.53* LHX6IWZ 31* 30* 34* 26* 30* PO2ART 73* 62* 78* 48* 55* YHL6GAY 25.7 23.2 25.0 21.2 24.9 LACTATEVEN 1.2 1.6 1.5 1.3 1.5 JVS2RNU 30 30 30 21 21 PFRATIOART2 243 207 260 229 262 VBG (Venous Blood Gas) Recent Labs 08/19/22 0507 08/18/22 0615 08/16/22200808/16/22 1759 08/16/22 1602 LACTATEVEN 1.2 1.6 1.5 1.3 1.5 Mixed Venous Sat Recent Labs 08/16/22201108/16/22 1558 08/16/22 1211 08/16/22 1117 08/16/22 0948 N5JRZC5 56.6 50.5 56.0 49.3 56.5 Microbiology: 08/14, [...] from hemodynamic perspective, off dobutamine/pressors and with [place] now removed. Still intubated with minimal support, but unfortunately mental status continues to preclude extubation despite sedation now being held for 48 hours. Neurology was consulted yesterday given continued altered mental status, and recommended CTH/EEG. CT Head was unremarkable, and EEG demonstrated findings consistent with toxic metabolic encephalopathy. Will reach out to neurology today regarding possibleneed for MRI vs. MANAGER COMBINATION infection workup. Will diurese given net positivity [...] bipolar, DM, EtOH, esophagitis, who presented to [facility] 3 days ago after being found unresponsive at home. Patient found to have likely pneumonia +/- aspiration, newly reduced EF. 24 hr events/subjective: -on beta blockers -afebrile, high WBC -Secretions - moderate -I/Os positive last 24 hours -still not following commands. ASSESSMENT, MANAGEMENT, and DECISION MAKING: Patient is a 62 yo female with h/o bipolar, EtOH who presented to [facility] 08/12 after being found unresponsive by . [...] bipolar, DM, EtOH, esophagitis, who presented to [facility] 3 days ago after being found unresponsive [...] with h/o bipolar, EtOH who presented to [facility] 08/12 after being found unresponsive by . [...] & Farrell's esophagus presenting in transfer from [facility], suspected to be in cardiogenic shock and [...] 1216 PHART 7.51* 7.48* 7.53* 7.53* 7.52* AWK6HNU 30* 34* 26* 30* 30* PO2ART 62* 78* 48* 55* 59* ZZX6EMR 23.2 25.0 21.2 24.9 24.2 LACTATEVEN 1.6 1.5 1.3 1.5 1.8 RIT4ABS 30 30 21 21 21 PFRATIOART2 207 260 229 262 281 VBG (Venous Blood Gas) Recent Labs 08/18/2261408/16/22200808/16/22175808/16/22 1602 08/16/22 1216 LACTATEVEN 1.6 1.5 1.3 1.5 1.8 Mixed Venous Sat Recent Labs 08/16/22201108/16/22 1558 08/16/22 1211 08/16/22 1117 08/16/22 0948 R8EWDS9 56.6 50.5 56.0 49.3 56.5 PA Catheter [...] 1216 PHART 7.51* 7.48* 7.53* 7.53* 7.52* ZYI0EER 30* 34* 26* 30* 30* PO2ART 62* 78* 48* 55* 59* YBI1LNT 23.2 25.0 21.2 24.9 24.2 LACTATEVEN 1.6 1.5 1.3 1.5 1.8 ZUX2YEO 30 30 21 21 21 PFRATIOART2 207 260 229 262 281 VBG (Venous Blood Gas) Recent Labs 08/18/22 0615 08/16/22200808/16/22 17508/16/22 1602 08/16/22 1216 LACTATEVEN 1.6 1.5 1.3 1.5 1.8 Mixed Venous Sat Recent Labs 08/16/22201108/16/22 1558 08/16/22 1211 08/16/22 1117 08/16/22 0948 I2SMOE6 56.6 50.5 56.0 49.3 56.5 Microbiology: 08/14, [...] pressor/inotrope support today and thus will remove [place] catheter. She is also on minimal ventilator [...] bipolar, DM, EtOH, esophagitis, who presented to [facility] 3 days ago after being found unresponsive [...] was able to discuss plan with provider [facility] 5904. All Active TF Orders: Tubefeeding [...] encounter: 71.9 kg (158 lb 8 oz). [place] Body Weight: 45.5 kg Usual Body Weight: [...] up while inpatient Nancy Ernst RD Pager #:[phone] * Jigar Cherry RN - 08/17/2022 10:09 [...] bipolar, DM, EtOH, esophagitis, who presented to [facility] 3 days ago after being found unresponsive [...] with h/o bipolar, EtOH who presented to [facility] 08/12 after being found unresponsive by . [...] & Farrell's esophagus presenting in transfer from [facility], suspected to be in cardiogenic shock and [...] 0817 PHART 7.48* 7.53* 7.53* 7.52* 7.46* GXD7BZY 34* 26* 30* 30* 36 PO2ART 78* 48* 55* 59* 68* MKY6EPZ 25.0 21.2 24.9 24.2 24.8 LACTATEVEN 1.5 1.3 1.5 1.8 2.2 CII6RVT 30 21 21 21 21 PFRATIOART2 260 229 262 281 324 VBG (Venous Blood Gas) Recent Labs 08/16/22200808/16/22 1759 08/16/22 1602 08/16/22 1216 08/16/22 0817 LACTATEVEN 1.5 1.3 1.5 1.8 2.2 Mixed Venous Sat Recent Labs 08/16/22201108/16/22 1558 08/16/22 1211 08/16/22 1117 08/16/22 0948 U5RTOL1 56.6 50.5 56.0 49.3 56.5 PA Catheter [...] 0817 PHART 7.48* 7.53* 7.53* 7.52* 7.46* BDG2KGD 34* 26* 30* 30* 36 PO2ART 78* 48* 55* 59* 68* EEW8JCB 25.0 21.2 24.9 24.2 24.8 LACTATEVEN 1.5 1.3 1.5 1.8 2.2 FZJ5DZO 30 21 21 21 21 PFRATIOART2 260 229 262 281 324 VBG (Venous Blood Gas) Recent Labs 08/16/22200808/16/22175808/16/22 1602 08/16/22 1216 08/16/22 0817 LACTATEVEN 1.5 1.3 1.5 1.8 2.2 Mixed Venous Sat Recent Labs 08/16/22201108/16/22 1558 08/16/22 1211 08/16/22 1117 08/16/22 0948 T8SZCC6 56.6 50.5 56.0 49.3 56.5 Troponin - [...] with significant improvement in cardiac index. Contacted [facility] this morning, 72hr BCx remain NGTD. However, [...] zac Avila MD Internal Medicine, PGY-1 Cardiology [facility] #[id number] Cardiology Staff Addendum ?? Ishan [...] FACP, FASE Cardiovascular Medicine * Richard Alva, MANAGER MARKETING COMMUNICATIONS - 08/16/2022 10:32 PM EDT AMV Protocol: [...] to manage per AMV/SBT protocol. RICHARD ALVA, MANAGER MARKETING COMMUNICATIONS * Adi Luo RCP - 08/16/2022 3:59 [...] bipolar, DM, EtOH, esophagitis, who presented to [facility] 3 days ago after being found unresponsive [...] T/L/D [place] 08/15 ETT 08/14 CVL 08/15 [place] 08/15 ASSESSMENT, MANAGEMENT, and DECISION MAKING: Patient is a 62 yo female with h/o bipolar, EtOH who presented to [facility] 08/12 after being found unresponsive by . [...] PCP: Chris Stanley APRN PCP phone number: [phone] Date of Admission: 08/14/2022 ( Hospital Day [...] & Farrell's esophagus presenting in transfer from [facility], suspected to be in cardiogenic shock and [...] 1616 PHART 7.46* 7.47* 7.46* 7.44 7.38 TYA8WVF 36 34* 36 30* 36 PO2ART 68* 71* 75* 78* 78* JAO0MPW 24.8 24.5 24.7 19.7* 20.8 LACTATEVEN 2.2 1.7 2.2 1.6 1.8 JRP3WOH 21 25 25 25 30 PFRATIOART2 324 284 300 312 260 VBG (Venous Blood Gas) Recent Labs 08/16/22 0808/16/2244008/15/22235808/15/22200708/15/22 1616 LACTATEVEN 2.2 1.7 2.2 1.6 1.8 Mixed Venous Sat Recent Labs 08/16/22 0808/16/224 08/16/2221208/16/22 0004 08/15/222009 L5FMTJ2 48.7 54.2 51.3 46.3 49.8 PA Catheter [...] 1616 PHART 7.46* 7.47* 7.46* 7.44 7.38 UGA5QZY 36 34* 36 30* 36 PO2ART 68* 71* 75* 78* 78* VJN9BAS 24.8 24.5 24.7 19.7* 20.8 LACTATEVEN 2.2 1.7 2.2 1.6 1.8 NGP5VSS 21 25 25 25 30 PFRATIOART2 324 284 300 312 260 VBG (Venous Blood Gas) Recent Labs 08/16/22 0817 08/16/22 0441 08/15/22235808/15/22200708/15/22 1616 LACTATEVEN 2.2 1.7 2.2 1.6 1.8 Mixed Venous Sat Recent Labs 08/16/22 0820 08/16/22 0444 08/16/22 0213 08/16/22 0004 08/15/222009 S1HYXZ5 48.7 54.2 51.3 46.3 49.8 Troponin - [...] with significant improvement in cardiac index. Contacted [facility] this morning, 72hr BCx remain NGTD. However, [...] zac Avila MD Internal Medicine, PGY-1 Cardiology [facility] #[id number] Cardiology Staff Addendum ?? Ishan [...] FACC, FACP, FASE Cardiovascular Medicine * Richard Alav, MANAGER MARKETING COMMUNICATIONS - 08/15/2022 9:04 PM EDT AMV Protocol: [...] patient was transferred to the ED at [facility]. Per the patient she was following simple commands while at [facility]. Discussed her current status with the family at the bedside. * Vanessa Escalona MD - 08/15/2022 10:28 AM EDT Critical Care Medicine Staff Progress Note 62 y.o. female with h/o bipolar, DM, EtOH, esophagitis, who presented to [facility] 3 days ago after being found unresponsive [...] heparin, ASA and Lasix. En route to [facility] her pressor requirement increased to include Levophed [...] T/L/D [place] 08/15 ETT 08/14 CVL 08/15 [place] 08/15 ASSESSMENT, MANAGEMENT, and DECISION MAKING: Patient is a 62 yo female with h/o bipolar, EtOH who presented to [facility] 08/12 after being found unresponsive by . [...] PCP: Chris Stanley APRN PCP phone number: [phone] Date of Admission: 08/14/2022 ( Hospital Day [...] & Farrell's esophagus presenting in transfer from [facility], suspected to be in cardiogenic shock and found to be in mixed shock with concern for stress cardiomyopathy. 24 Hour Events/Subjective: Yesterday: -- Overnight: - [place] was floated - now off dobutamine and [...] 08/15/22 53008/15/2231008/14/222356 PHART -- 7.30* 7.25* 7.25* ZOQ4RLH -- 41 38 42 PO2ART -- 117* 112* 242* QZL7OJX -- 19.6* 16.0* 17.9* LACTATEVEN 3.1* 3.6* 1.9 2.6* QTL7DWP -- 40 40 60 PFRATIOART2 -- 292 280 403 VBG (Venous Blood Gas) Recent Labs 08/15/22 0555 08/15/2253008/15/2231008/14/222356 LACTATEVEN 3.1* 3.6* 1.9 2.6* Mixed Venous Sat Recent Labs 08/15/2233 08/15/22 0113 D6MSCS9 63.7 63.3 PA Catheter #'s PA Catheter [...] 08/14/22 2357 PHART -- 7.30* 7.25* 7.25* QUK6FMC -- 41 38 42 PO2ART -- 117* 112* 242* ZAA7NSG -- 19.6* 16.0* 17.9* LACTATEVEN 3.1* 3.6* 1.9 2.6* QSW7YLI -- 40 40 60 PFRATIOART2 -- 292 280 403 VBG (Venous Blood Gas) Recent Labs 08/15/22 0555 08/15/22 0531 08/15/22 0311 08/14/22 2357 LACTATEVEN 3.1* 3.6* 1.9 2.6* Mixed Venous Sat Recent Labs 08/15/22 0533 08/15/22 0113 Q1QBKQ3 63.7 63.3 Troponin HS: 617 at midnight [...] the first few days of hospitalization at [facility]. Will keep her on broad spectrum antibiotics. Will monitor blood cultures obtained here as well as those obtained at [facility] prior to transfer. Her TTE appears to [...] - Abx: Vancomycin & zosyn - Call [facility] in AM to inquire about blood culture results #Routine Diet: NPO diet (Give Meds) DVT prophylaxis: heparin gtt GI Prophylaxis: home PPI Code Status: Attempt Cardiopulmonary Resuscitation - Inpatient Alternative Medical Decision Maker: zac Streeter MD Internal Medicine, PGY-2 Cardiology [facility] #[id number] Cardiology Staff Addendum ?? Ishan [...] of the Day: 23:30 [facility] 30 270 +10 60% ARDS [...] alarms set appropriately & audible. NSR on assembler handbags. Lungs are clear. Blood sugar 156. G [...] BX performed by David Dejesus MD at [facility] ??? PRO COLONOSCOPY, DIAGNOSTIC N/A 03/01/2020 COLONOSCOPY, DIAGNOSTIC performed by David Dejesus MD at [facility] ??? PRO ENDOSCOPIC US EXAM, ESOPH N/A 03/31/2022 UPPER EUS- ENDOSCOPIC ULTRASOUND performed by David Dejesus MD at [facility] ??? PRO UPPER GI ENDOSCOPY, BIOPSY N/A 04/03/2014 UPPER GASTROINTESTINAL ENDOSCOPY,WITH BIOPSY SINGLE OR MULTIPLE performed by David [facility]jesus MDat [facility] ??? PRO UPPER GI ENDOSCOPY, BIOPSY N/A 03/20/2016 EGD WITH BIOPSY performed by David Dejesus MD at [facility] ??? PRO UPPER GI ENDOSCOPY, BIOPSY N/A 11/22/2018 EGD WITH BIOPSY (WRVU 2.49) performed by David Dejesus MD at [facility] ??? PRO UPPER GI ENDOSCOPY, BIOPSY N/A 03/01/2020 UPPER GASTROINTESTINAL ENDOSCOPY,WITH BIOPSY SINGLE OR MULTIPLE (WRVU 2.49) performed by David Dejesus MD at [facility] ??? PRO UPPER GI ENDOSCOPY, BIOPSY N/A 09/23/2021 EGD WITH BIOPSY (WRVU 2.49) performed by David Dejesus MD at [facility] ??? PRO UPPER GI ENDOSCOPY, BIOPSY N/A 03/31/2022 EGD WITH BIOPSY (WRVU 2.49) performed by David Dejesus MD at [facility] ??? PRO UPPER GI ENDOSCOPY, BIOPSY N/A 07/03/2022 EGD WITH BIOPSY (WRVU 2.49) performed by David Dejesus MD at [facility] ??? PRO UPPER GI ENDOSCOPY, DIAGNOSTIC N/A 04/03/2014 EGD, UPPER GI ENDOSCOPY performed by David Dejesus MD at [facility] ??? PRO UPPER GI ENDOSCOPY, DIAGNOSTIC N/A 03/01/2020 EGD, UPPER GI ENDOSCOPY performed by David Dejesus MD at [facility] Medications: No current facility-administered medications on [...] for dosing. 15 mL 11 ??? Insulin [place], Disposable, (BD INSULIN PEN NEEDLE UF MINI) 31 x 3/16 Needle 1 Device by [facility]Non-Drug; Combo Route) route 3 times [...] Roland Pruett MD PCP: Chris Stanley APRN ([phone]) No chief complaint on file. ID: Ishan Irving is a 62 y.o. female w/ PMH of ??recent L femoral neck fracture,??bipolar disorder, resolving medication-induced Parkinsonism, insulin- dependent diabetes mellitus,??hx of alcohol use disorder (reported to be in remission for 1.5 years) c/b chronic pancreatitis, iron deficiency anemia,??GERD??c/b??esophagitis &??Farrell's esophagus, transferred from [facility] to [facility] on 08/14/2022, now on Hospital Day #16, [...] deficiency anemia,?? GERD??c/b??esophagitis &??Farrell's esophagus, admitted to [facility] on 08/14/2022, now on Hospital Day #16, for for mixed shock with concern for stress cardiomyopathy (Takotsubo Cardiomyopathy). Five days prior to initial presentation, patient underwent femoral neck fracture fixation and was discharged home on opioids. Patient was found unresponsive at home and hypoxic to 70s, improved to 90s with NRB mask given by EMS. Was given narcan with minimal response. Brought to [facility] and given additional narcan with no response. OSH Labs prior to transfer to [facility] Cardiology Team: Labs: - ABG: pH 7.43, [...] on diuresis with lasix and transferred to [facility] on 08/14. Patient arrived to [facility] requiring approximately NE30, dobutamine 2.5, and epi 5. Patient was started on goal directed therapy with losartan, metoprolol 25mg daily, spirinolactone 25mg daily, [id number] daily and additionally started on empagliflozin 10mg daily. Patient being followed by ELEVATOR EXAMINER and recommend NPO given significant dysphagia. Patient [...] BX performed by David Dejesus MD at [facility] ??? PRO COLONOSCOPY, DIAGNOSTIC N/A 03/01/2020 COLONOSCOPY, DIAGNOSTIC performed by David Dejesus MD at [facility] ??? PRO ENDOSCOPIC US EXAM, ESOPH N/A 03/31/2022 UPPER EUS- ENDOSCOPIC ULTRASOUND performed by David Dejesus MD at [facility] ??? PRO UPPER GI ENDOSCOPY, BIOPSY N/A 04/03/2014 UPPER GASTROINTESTINAL ENDOSCOPY,WITH BIOPSY SINGLE OR MULTIPLE performed by David Dejesus MDat [facility] ??? PRO UPPER GI ENDOSCOPY, BIOPSY N/A 03/20/2016 EGD WITH BIOPSY performed by David Dejesus MD at [facility] ??? PRO UPPER GI ENDOSCOPY, BIOPSY N/A 11/22/2018 EGD WITH BIOPSY (WRVU 2.49) performed by David Dejesus MD at [facility] ??? PRO UPPER GI ENDOSCOPY, BIOPSY N/A 03/01/2020 UPPER GASTROINTESTINAL ENDOSCOPY,WITH BIOPSY SINGLE OR MULTIPLE (WRVU 2.49) performed by David Dejesus MD at [facility] ??? PRO UPPER GI ENDOSCOPY, BIOPSY N/A 09/23/2021 EGD WITH BIOPSY (WRVU 2.49) performed by David Dejesus MD at [facility] ??? PRO UPPER GI ENDOSCOPY, BIOPSY N/A 03/31/2022 EGD WITH BIOPSY (WRVU 2.49) performed by David Dejesus MD at [facility] ??? PRO UPPER GI ENDOSCOPY, BIOPSY N/A 07/03/2022 EGD WITH BIOPSY (WRVU 2.49) performed by David Dejesus MD at [facility] ??? PRO UPPER GI ENDOSCOPY, DIAGNOSTIC N/A 04/03/2014 EGD, UPPER GI ENDOSCOPY performed by David Dejesus MD at [facility] ??? PRO UPPER GI ENDOSCOPY, DIAGNOSTIC N/A 03/01/2020 EGD, UPPER GI ENDOSCOPY performed by David Dejesus MD at [facility] Social History: Social History Socioeconomic History [...] for dosing. 15 mL 11 ??? Insulin [place], Disposable, (BD INSULIN PEN NEEDLE UF MINI) [...] Gas): No results found for: PHART, PO2ART, DKT9BQH, SDB2STX VBG (Venous Blood Gas): No results for input(s): PHVEN, ACY5WIU, PO2VEN, EXU0JBP, BEVEN, ADO7RXT in the last 72 hours. EKG: Lab [...] who have questions please contact the health infant childcare provider that requested your imaging first. Electronically signed by: Davi Terry MD, [facility] ([phone]), at 08/15/2022 3:53 AM XR Abdomen 1 [...] who have questions please contact the health infant childcare provider that requested your imaging first. Electronically signed by: Liliane Adams MD, [facility] ([phone]), at 08/15/2022 9:05 AM XR Chest One [...] who have questions please contact the health infant childcare provider that requested your imaging first. Electronically signed by: Davi Terry MD, [facility] ([phone]), at 08/15/2022 3:55 AM XR Abdomen 1 [...] who have questions please contact the health infant childcare provider that requested your imaging first. Electronically signed by: Davi Terry MD, [facility] ([phone]), at 08/15/2022 6:41 AM XR Chest One [...] who have questions please contact the health infant childcare provider that requested your imaging first. Electronically signed by: Alfonso Adams MD, [facility] ([phone]), at 08/16/2022 10:[address] Head wo [...] who have questions please contact the health infant childcare provider that requested your imaging first. Electronically signed by: Moustapha Correa MD, [facility] ([phone]), at 08/16/2022 11:19 PM XR Abdomen 1 [...] who have questions please contact the health infant childcare provider that requested your imaging first. Electronically signed by: Jenn Pina MD, [facility] ([phone]), at 08/17/2022 2:[address] Head wo Contrast (Generic) (Exam End: 08/18/2022 3:14 PM) Impression No acute intracranial process. Thank you for letting us participate in the care of this patient. If you are a health care provider and have any questions regarding this report, please contact the number below. For patients who have questions please contact the health infant childcare provider that requested your imaging first. Electronically signed by: Antonio Jordan MD, [facility] ([phone]), at 08/18/2022 3:18 PM XR Chest One [...] who have questions please contact the health infant childcare provider that requested your imaging first. Electronically signed by: Alan De Guzman MD, [facility] ([phone]), at 08/19/2022 3:14 PM MRI Brain wo Contrast (Exam End: 08/19/2022 10:15 PM) Impression No acute infarction, mass or mass effect. Thank you for letting us participate in the care of this patient. If you are a health care provider and have any questions regarding this report, please contact the number below. For patients who have questions please contact the health infant childcare provider that requested your imaging first. Electronically signed by: Jagdeep Lee MD, [facility] ([phone]), at 08/20/2022 3:34 AM XR Chest for [...] who have questions please contact the health infant childcare provider that requested your imaging first. Electronically signed by: Alan De Guzman MD, [facility] ([phone]), at 08/19/2022 4:[address] Hip w [...] who have questions please contact the health infant childcare provider that requested your imaging first. Electronically signed by: Aicha Chowdhury MD, [facility] ([phone]), at 08/21/2022 9:[address] Chest w [...] who have questions please contact the health infant childcare provider that requested your imaging first. Electronically signed by: Jagdeep Lee MD, [facility] ([phone]), at 08/21/2022 6:56 AM XR Hip 2-3 Views Left (Exam End: 08/22/2022 12:19 AM) Impression No radiographic evidence of infection. Thank you for letting us participate in the care of this patient. If you are a health care provider and have any questions regarding this report, please contact the number below. For patients who have questions please contact the health infant childcare provider that requested your imaging first. Electronically signed by: Viktor Cervantes MD, [facility] ([phone]), at 08/22/2022 12:43 PM XR Pelvis (Generic) (Exam End: 08/22/2022 12:19 AM) Impression No radiographic evidence of infection status post left hip ORIF. Thank you for letting us participate in the care of this patient. If you are a health care provider and have any questions regarding this report, please contact the number below. For patients who have questions please contact the health infant childcare provider that requested your imaging first. Electronically signed by: Richard Billings MD, [facility] ([phone]), at 08/22/2022 10:[address] Angiogram Coronary [...] who have questions please contact the health infant childcare provider that requested your imaging first. Electronically signed by: Arlette Mays MD, [facility] ([phone]), at 08/27/2022 11:[address] Chest wo Contrast (Generic) (Exam End: 08/27/2022 8:58 AM) Impression Stable findings of multifocal pneumonia. No interval abnormality. Thank you for letting us participate in the care of this patient. If you are a health care provider and have any questions regarding this report, please contact the number below. For patients who have questions please contact the health infant childcare provider that requested your imaging first. Electronically signed by: MINH QUIROGA MD, [facility] ([phone]), at 08/27/2022 10:48 AM Medications: Scheduled: ??? [...] fracture s/p surgical fixation , admitted to [facility] on 08/14/2022, now on Hospital Day #16, [...] level 08/29. - level 25mg/L 08/29 - ELEVATOR EXAMINER to evaluate. - Reach out to neurology, [...] Internal Medicine PGY1 Medicine Team: Vega, Pager #[phone] Date: 08/30/2022 Associated attestation - Alfonso Navarrete MD - 08/30/2022 9:19 PM EDT [address] Medicine Service Attending Documentation I certify [...] -continue tube feeds via DHT -plan for ELEVATOR EXAMINER evaluation and MBS tomorrow #stress cardiomyopathy -holding [...] for dosing. 15 mL 11 ??? Insulin [place], Disposable, (BD INSULIN PEN NEEDLE UF MINI) [...] BX performed by David Dejesus MD at [facility] ??? PRO COLONOSCOPY, DIAGNOSTIC N/A 03/01/2020 COLONOSCOPY, DIAGNOSTIC performed by David Dejesus MD at [facility] ??? PRO ENDOSCOPIC US EXAM, ESOPH N/A 03/31/2022 UPPER EUS- ENDOSCOPIC ULTRASOUND performed by David Dejesus MD at [facility] ??? PRO UPPER GI ENDOSCOPY, BIOPSY N/A 04/03/2014 UPPER GASTROINTESTINAL ENDOSCOPY,WITH BIOPSY SINGLE OR MULTIPLE performed by David Dejesus MDat [facility] ??? PRO UPPER GI ENDOSCOPY, BIOPSY N/A 03/20/2016 EGD WITH BIOPSY performed by David Dejesus MD at [facility] ??? PRO UPPER GI ENDOSCOPY, BIOPSY N/A 11/22/2018 EGD WITH BIOPSY (WRVU 2.49) performed by David Dejesus MD at [facility] ??? PRO UPPER GI ENDOSCOPY, BIOPSY N/A 03/01/2020 UPPER GASTROINTESTINAL ENDOSCOPY,WITH BIOPSY SINGLE OR MULTIPLE (WRVU 2.49) performed by David Dejesus MD at [facility] ??? PRO UPPER GI ENDOSCOPY, BIOPSY N/A 09/23/2021 EGD WITH BIOPSY (WRVU 2.49) performed by David Dejesus MD at [facility] ??? PRO UPPER GI ENDOSCOPY, BIOPSY N/A 03/31/2022 EGD WITH BIOPSY (WRVU 2.49) performed by David Dejesus MD at [facility] ??? PRO UPPER GI ENDOSCOPY, BIOPSY N/A 07/03/2022 EGD WITH BIOPSY (WRVU 2.49) performed by David Dejesus MD at [facility] ??? PRO UPPER GI ENDOSCOPY, DIAGNOSTIC N/A 04/03/2014 EGD, UPPER GI ENDOSCOPY performed by David Dejesus MD at [facility] ??? PRO UPPER GI ENDOSCOPY, DIAGNOSTIC N/A 03/01/2020 EGD, UPPER GI ENDOSCOPY performed by David Dejesus MD at [facility] Social History and Habits: Social History [...] PCP: Chris Stanley APRN PCP phone number: [phone] Date of Admission: 08/14/2022 ( Hospital Day [...] & Farrell's esophagus presenting in transfer from [facility], suspected to be in cardiogenic shock. Ms. [...] escalated to 4L NC. On arrival to [facility], the patient was given further doses of [...] (80 lasix) & dobutamine withconsequent transfer to [facility]. On arrival, the patient was requiring requiring [...] to touch. Neuro: RASS -5 Lines/Drains/Airways Lines: [place], A line, central line EKG (08/15/22): Sinus [...] in the last 7068 hours. Invalid input(s): [id number] No results for input(s): POCGLU in the last 168 hours. Heme No results for input(s): LDH, HAPTOGLOBIN, URICACID in the last 168 hours. ABG (Arterial Blood Gas) No results found for: PHART, PO2ART, GFL9KTY, WAD2MAL Microbiology: Microbiology Results (Last 30 days) No [...] - Abx: Vancomycin & zosyn - Call [facility] in AM to inquire about blood culture [...] sterile barriertechnique was used throughout. A 4 Yemeni glide catheter was placed as a nasoenteric [...] a suspected line-associated infection. Location of Procedure: [facility] Risks and Benefits: The risks and [...] to the planned procedure. Hand Hygiene: The gut cleaner did perform hand hygiene prior to line insertion. Catheter type: PICC Lot number: [id number] Procedure Technique: Skin was prepped with chlorhexidine. [...] EEG ROUTINE - PROCDOC Pre-Procedure Diagnose(s): Encephalopathy [facility] Department of Neurology Inpatient Routine EEG Report [...] bipolar, DM, EtOH, esophagitis, who presented to [facility] 3 days ago after being found unresponsive at home. Patient found to have likely pneumonia +/- aspiration, newly reduced EF. Patient not on any sedation, not waking up. MEDICATIONS: -Depakote 500 mg x1 dose -Fentanyl gtt stopped 08/17 -Propofol gtt stopped 08/17 PRIOR EEG(s): -N/A METHODS: A 21 channel digitized electroencephalogram was performed in the [facility] Clinical Neurophysiology Laboratory. The 10/20 international system of electrode placement was used and bipolar and referential electrode montages were recorded. In addition to EEG the patient was monitored for EKGand lateral/vertical eye movements. Video was recorded during the session. MANAGED CARE DIRECTOR'S REPORT: Performed by: Glendy MARCUS Patient was [...] final interpretation as written. Tyree Martin MD [facility] Epilepsy Program Department of Neurology * Cedric [...] follow. Cedric Gilbert MD Epilepsy Fellow P. [phone] * Jesenia Mejía MD - 08/15/2022 12:47 [...] to the planned procedure. Hand Hygiene: The gut cleaner did perform hand hygiene prior to line insertion. Procedure Details: Insertion Site:internal jugular side:right Confirmation of Venous Placement: Venous placement was confirmed by transducing the pressure. Introducer Insertion Attempts: 1 Comments: See separate note Floating the [place]-Isabelle Catheter Attempts: 1 Sterile Dressing: CHG Impregnated [...] to the planned procedure. Hand Hygiene: The gut cleaner did perform hand hygiene prior to arterial [...] anticipated to discharge home with family with [facility] and 24/7 care 09/25/22. Medical team has cleared Ishan to return home with [facility]. Patient will discharge with [facility] with a SOC 09/26/22. [facility] has done education on administration of tube feeds and has stated they did well. Delivery of formulas was done 09/24/22 at 1700. Needs for Transition of Care: Plan for discharge is: Home w/ Services Outpatient Agency/Support Group Needs: None Home Health Services: Occupational Therapy, Physical Therapy, Medication checks, Registered Nurse, Home Health Aide, Dye Operator Agency Referrals & Follow-up Care: Contact information for follow-up Infusion Therapy, [facility] [address] [address] [facility], [place] [address] [facility] [address] Transportation: ambulance family or friend will provide [...] in agreement with plan. Ashlee Miramontes RN [phone] Pager [phone] * Plan of Care - Leann Harding [...] plan for patient to discharge 09/26/22 with [facility] and30/11 care. Plan for NELC to do [...] and family prefer to discharge home with [facility] and/7 care. Medical team is aware of patient and family preference. [facility] Transportation: ambulance vs family Barriers to discharge: Discharge planning Supports: Caregiver support Financial: LTC Medicaid *Submitted 09/14 Plan going forward: Care Management will continue to follow and assist with discharge planning and coordination of care as indicated. Anticipated Date of Discharge: 09/25/2022 Ashlee Miramontes RN [phone] Pager [phone] * Plan of Care - Leann Harding [...] to Ishan regarding discharge planning. RUPAL and alligator trapper attempted to give education on importance of utilizing rehab to ensure a safe discharge home. Patient is adamantly refusing rehab at this time. Medical team is aware of family wishes. Ashlee Miramontes RN, CM [phone] Pager [phone] ADDENDUM 1348: Message received from Antonio anaya, expressing extreme frustration regarding needfor rehab before returning home. Family preference is for Ishan to return home with HHS despite therapy recommendations for rehab. Antonio requesting a return call from RUPAL and . has been notified. [facility]UPAL left a message with and is currently awaiting a return call. Referrals submitted per Antonio anaya's request. The Double End Trimmer, Antonio anaya has been provided a list of Home Health Agencies/DME vendors which serve their preferred geographic area. A letter describing our affiliations was reviewed with them and they were educated about their right to choose where referrals are placed. RUPAL Provided patient with [facility] Star Quality Rating for Home care hand out. Patient requests referral to : [facility] [address] [place] [address] Expected date of discharge: 09/25/22. Referral routed to the [employer] for matching with agency/vendor and to provide any required information. New Tube Feeds: [address] , [place] [address] Toll Free: Nursing Pharmacy Ashlee Miramontes RN [phone] Pager [phone] * Plan of Care - Radha Lockett [...] Referral Placed: 09/10/2022 Last Physical Therapy Recommendation: alf facility with to be determined Last Occupational Therapy Recommendation: acute rehabilitation facility with to be determined Plan for discharge is: [facility] Facility / Swing Outpatient Agency/Support Group Needs: None Agency Referrals: [facility] decision [facility], no payer source. Ongoing discussion regarding possible contract. Tawanda [facility] - pending response ?? Transportation: ambulance Barriers to discharge: Discharge planning Supports: Caregiver support Financial: LTC Medicaid *Submitted 09/14 Plan going forward: Care Management will continue to follow and assist with discharge planning and coordination of care as indicated. Anticipated Date of Discharge: 09/21/2022 Ashlee Miramontes RN [phone] Pager [phone] * Plan of Care - Ama Mckoy [...] HOB higher than 30 degrees) Use a NantMobile chair cushion beneath patient at all times [...] Please contact KHADRA LOU RN on pager [phone] or the wound care team at [phone] or pager [phone] with skin and wound care concerns or [...] Referral Placed: 09/10/2022 Last Physical Therapy Recommendation: alf facility with to be determined Last Occupational Therapy Recommendation: acute rehabilitation facility with to be determined Plan for discharge is: [facility] / Swing Outpatient Agency/Support Group Needs: None Agency Referrals: Diane - pending decision [facility] - declined, no payer source. Ongoing discussion regarding possible contract. [facility] [place] - pending response Transportation: ambulance Barriers to discharge: Discharge planning Supports: Caregiver support Financial: [facility] Medicaid *Submitted 09/14 Plan going forward: G-tube successfully placed 09/11, patient tolerating tube feeds at this time. Remains NPO. She is s/p ORIF for left femur fracture, currently requiring 2 assist FWW/gait belt for mobility. [place] [facility] Medicaid application has been submitted 09/14. Care Management will continue to follow and assist with discharge planning and coordination of care as indicated. Anticipated Date of Discharge: 09/18/2022 Marybeth Shelley RN, BSN Clinical Services Manager - Medicine Office of Care Management Office: Pager: [phone] * Plan of Care - Ama Mckoy [...] vs home w services Pending insurance for senior care medicaid Gastric retention band removal INDIVIDUALIZED FALL [...] vs home w/services Insurance pending for medicaid senior care care. INDIVIDUALIZED FALL PREVENTION INTERVENTIONS: Patient-specific fall [...] at this time. D5LR in place, infusing mi606ht/hr. Plan for IR to place G- tube around 1500. Speech and Marketing Producer to floor, deferred assessment at that time [...] There is delayed elevation of the larynx penitentiary between the vallecula and piriform sinuses. It [...] BX performed by David Dejesus MD at [facility] ??? PRO COLONOSCOPY, DIAGNOSTIC N/A 03/01/2020 COLONOSCOPY, DIAGNOSTIC performed by David Dejesus MD at [facility] ??? PRO ENDOSCOPIC US EXAM, ESOPH N/A 03/31/2022 UPPER EUS- ENDOSCOPIC ULTRASOUND performed by David Dejesus MD at [facility] ??? PRO UPPER GI ENDOSCOPY, BIOPSY N/A 04/03/2014 UPPER GASTROINTESTINAL ENDOSCOPY,WITH BIOPSY SINGLE OR MULTIPLE performed by David [facility]jesus MDat [facility] ??? PRO UPPER GI ENDOSCOPY, BIOPSY N/A 03/20/2016 EGD WITH BIOPSY performed by David Dejesus MD at [facility] ??? PRO UPPER GI ENDOSCOPY, BIOPSY N/A 11/22/2018 EGD WITH BIOPSY (WRVU 2.49) performed by David Dejesus MD at [facility] ??? PRO UPPER GI ENDOSCOPY, BIOPSY N/A 03/01/2020 UPPER GASTROINTESTINAL ENDOSCOPY,WITH BIOPSY SINGLE OR MULTIPLE (WRVU 2.49) performed by David Dejesus MD at [facility] ??? PRO UPPER GI ENDOSCOPY, BIOPSY N/A 09/23/2021 EGD WITH BIOPSY (WRVU 2.49) performed by David Dejesus MD at [facility] ??? PRO UPPER GI ENDOSCOPY, BIOPSY N/A 03/31/2022 EGD WITH BIOPSY (WRVU 2.49) performed by David Dejesus MD at [facility] ??? PRO UPPER GI ENDOSCOPY, BIOPSY N/A 07/03/2022 EGD WITH BIOPSY (WRVU 2.49) performed by David Dejesus MD at [facility] ??? PRO UPPER GI ENDOSCOPY, DIAGNOSTIC N/A 04/03/2014 EGD, UPPER GI ENDOSCOPY performed by David Dejesus MD at [facility] ??? PRO UPPER GI ENDOSCOPY, DIAGNOSTIC N/A 03/01/2020 EGD, UPPER GI ENDOSCOPY performed by David Dejesus MD at [facility] SOCIAL HX: Social History Socioeconomic History [...] for dosing. 15 mL 11 ??? Insulin [place], Disposable, (BD INSULIN PEN NEEDLE UF MINI) 31 x 3/16 Needle 1 Device [place] [facility]Non-Drug; Combo Route) route 3 times [...] who have questions please contact the health infant childcare provider that requested your imaging first. Electronically signed by: Camille Garcia MD, [facility] ([phone]), at 09/10/2022 1:16 AM XR Chest One View Final Result 1. Reposition enteric tube now extending below the diaphragm and included [id number]. 2. Similar appearance of elevated right hemidiaphragm and linear/patchy bibasilar opacities which may represent atelectasis or possibly aspiration. Thank you for letting us participate in the care of this patient. If you are a health care provider and have any questions regarding this report, please contact the number below. For patients who have questions please contact the health infant childcare provider that requested your imaging first. Electronically signed by: AUDI PERDOMO MD, [facility] ([phone]), at 09/05/2022 3:43 PM XR Abdomen 1 [...] who have questions please contact the health infant childcare provider that requested your imaging first. Electronically signed by: Jagdeep Lee MD, [facility] ([phone]), at 09/04/2022 10:35 PM XR Chest One [...] who have questions please contact the health infant childcare provider that requested your imaging first. Electronically signed by: Jagdeep Lee MD, [facility] ([phone]), at 09/04/2022 10:35 PM XR Fluoro Barium [...] who have questions please contact the health infant childcare provider that requested your imaging first. Electronically signed by: Alfonso Adams MD, [facility] ([phone]), at 09/04/2022 10:57 AM XR Fluoro Barium [...] who have questions please contact the health infant childcare provider that requested your imaging first. Electronically signed by: Aron Billings MD, [facility] ([phone]), at 08/31/2022 12:[address] Angiogram Coronary [...] who have questions please contact the health infant childcare provider that requested your imaging first. Electronically signed by: Arlette Mays MD, [facility] ([phone]), at 08/27/2022 11:[address] Chest wo Contrast (Generic) Final Result Stable findings of multifocal pneumonia. No interval abnormality. Thank you for letting us participate in the care of this patient. If you are a health care provider and have any questions regarding this report, please contact the number below. For patients who have questions please contact the health infant childcare provider that requested your imaging first. Electronically signed by: MINH QUIROGA MD, [facility] ([phone]), at 08/27/2022 10:48 AM XR Hip 2-3 Views Left Final Result No radiographic evidence of infection. Thank you for letting us participate in the care of this patient. If you are a health care provider and have any questions regarding this report, please contact the number below. For patients who have questions please contact the health infant childcare provider that requested your imaging first. Electronically signed by: Viktor Cervantes MD, [facility] ([phone]), at 08/22/2022 12:43 PM XR Pelvis (Generic) Final Result No radiographic evidence of infection status post left hip ORIF. Thank you for letting us participate in the care of this patient. If you are a health care provider and have any questions regarding this report, please contact the number below. For patients who have questions please contact the health infant childcare provider that requested your imaging first. Electronically signed by: Richard Billings MD, [facility] ([phone]), at 08/22/2022 10:[address] Hip w [...] who have questions please contact the health infant childcare provider that requested your imaging first. Electronically signed by: Aicha Chowdhury MD, [facility] ([phone]), at 08/21/2022 9:[address] Chest w [...] who have questions please contact the health infant childcare provider that requested your imaging first. Electronically signed by: Jagdeep Lee MD, [facility] ([phone]), at 08/21/2022 6:56 AM MRI Brain wo Contrast Final Result No acute infarction, mass or mass effect. Thank you for letting us participate in the care of this patient. If you are a health care provider and have any questions regarding this report, please contact the number below. For patients who have questions please contact the health infant childcare provider that requested your imaging first. Electronically signed by: Jagdeep Lee MD, [facility] ([phone]), at 08/20/2022 3:34 AM XR Chest for [...] who have questions please contact the health infant childcare provider that requested your imaging first. Electronically signed by: Alan De Guzman MD, [facility] ([phone]), at 08/19/2022 4:39 PM XR Chest One [...] who have questions please contact the health infant childcare provider that requested your imaging first. Electronically signed by: Alan De Guzman MD, [facility] ([phone]), at 08/19/2022 3:[address] Head wo Contrast (Generic) Final Result No acute intracranial process. Thank you for letting us participate in the care of this patient. If you are a health care provider and have any questions regarding this report, please contact the number below. For patients who have questions please contact the health infant childcare provider that requested your imaging first. Electronically signed by: Antonio Jordan MD, [facility] ([phone]), at 08/18/2022 3:18 PM XR Abdomen 1 [...] who have questions please contact the health infant childcare provider that requested your imaging first. Electronically signed by: Jenn Pina MD, [facility] ([phone]), at 08/17/2022 2:[address] Head wo Contrast (Generic) Final Result No acute intracranial abnormality and no change from prior Thank you for letting us participate in the care of this patient. If you are a health care provider and have any questions regarding this report, please contact the number below. For patients who have questions please contact the health infant childcare provider that requested your imaging first. Electronically signed by: Moustapha Correa MD, [facility] ([phone]), at 08/16/2022 11:19 PM XR Chest One [...] who have questions please contact the health infant childcare provider that requested your imaging first. Electronically signed by: Alfonso Adams MD, [facility] ([phone]), at 08/16/2022 10:56 AM XR Abdomen 1 [...] who have questions please contact the health infant childcare provider that requested your imaging first. Electronically signed by: Liliane Adams MD, [facility] ([phone]), at 08/15/2022 9:05 AM XR Abdomen 1 [...] who have questions please contact the health infant childcare provider that requested your imaging first. Electronically signed by: Davi Terry MD, [facility] ([phone]), at 08/15/2022 6:41 AM XR Chest One [...] who have questions please contact the health infant childcare provider that requested your imaging first. Electronically signed by: Davi Terry MD, [facility] ([phone]), at 08/15/2022 3:55 AM XR Chest One [...] who have questions please contact the health infant childcare provider that requested your imaging first. Film Library- [...] re-engaged. Discussed and seen with her outpatient reprographics technician, Dr. Dejesus. Agree with placement of PEGw/IR [...] Russ MD - 09/10/2022 12:40 AM EDT [facility] Operative Note Name: Ishan Irving : 1960 Date of surgery: 09/10/2022 Surgeon: Audi Russ MD medical assistant ob gyn: Ede De Dios MD Preoperative dx: Need for senior care enteral feeding access due to inability to take PO Postoperative dx: Esophageal stricture Procedure: Esophagoscopy Indication: This is an 62 y.o. year old female with a PMHx of L femoral neck fracture,??bipolar disorder with catatonic episodes, resolving medication- induced Parkinsonism, IDDM,??h/o alcoholism and chronic pancreatitis, iron deficiency anemia,??and GERD??c/b??esophagitis &??Farrell's esophagus. She was admitted to [facility] on 08/14/2022 with mixed shock and stress [...] to be determined Plan for discharge is: [facility] Facility / Swing Outpatient Agency/Support Group Needs: None Agency Referrals: Diane - no response [facility] - declined, high cost medication and would [...] of Discharge: 09/10/2022 Marybeth Shelley RN, BSN Clinical Services Manager - Medicine Office of Care Management Office: Pager: [phone] * Plan of Care - Mac Mcmillan [...] when visiting. Patient does have transfer orders, pharmacist in charge owner notified of patient's and her husbands request to transfer to a floor. Tube feeds continued through DHT, patient reports feeling of fullness, then later had multiple episiodes of nausea and vomiting. PRN zofran given, and orders received for PRN compazine as well; private branch exchange service advisor aware and tube feeding orders adjusted. External [...] Hands on Surveillance [continuous indirect monitoring]: [facility], call light within reach, purposeful rounding, environmental modifications, bed alarm set Patient-specific fall prevention interventions for sensory deficits provided, if applicable: [X] N/A CPG GOAL OUTCOME EVALUATION: * Plan of Care - Merly Garcia RN - 09/05/2022 5:18 AM EDT Assumed care of pt @ 0100 from [facility]. A&Ox4, VSS on 2 L NC. TF restarted per orders in DHT, turned off per MD verbal order at 0600. Intermittent cough nonproductive, no S/S of aspiration. Externalcath in place, incontinence care provided PRN. Left hip incision MECHANICAL METER TESTER, CDI, steri strips intact. C/oleft hip pain, [...] RD??c/b??esophagitis &??Farrell's esophagus, who was admitted to [facility] on 08/14/2022 (now on Hospital Day #21), [...] BX performed by David Dejesus MD at [facility] ??? PRO COLONOSCOPY, DIAGNOSTIC N/A 03/01/2020 COLONOSCOPY, DIAGNOSTIC performed by David Dejesus MD at [facility] ??? PRO ENDOSCOPIC US EXAM, ESOPH N/A 03/31/2022 UPPER EUS- ENDOSCOPIC ULTRASOUND performed by David Dejesus MD at [facility] ??? PRO UPPER GI ENDOSCOPY, BIOPSY N/A 04/03/2014 UPPER GASTROINTESTINAL ENDOSCOPY,WITH BIOPSY SINGLE OR MULTIPLE performed by David [facility]us MDat [facility] ??? PRO UPPER GI ENDOSCOPY, BIOPSY N/A 03/20/2016 EGD WITH BIOPSY performed by David Dejesus MD at [facility] ??? PRO UPPER GI ENDOSCOPY, BIOPSY N/A 11/22/2018 EGD WITH BIOPSY (WRVU 2.49) performed by David Dejesus MD at [facility] ??? PRO UPPER GI ENDOSCOPY, BIOPSY N/A 03/01/2020 UPPER GASTROINTESTINAL ENDOSCOPY,WITH BIOPSY SINGLE OR MULTIPLE (WRVU 2.49) performed by David Dejesus MD at [facility] ??? PRO UPPER GI ENDOSCOPY, BIOPSY N/A 09/23/2021 EGD WITH BIOPSY (WRVU 2.49) performed by David Dejesus MD at [facility] ??? PRO UPPER GI ENDOSCOPY, BIOPSY N/A 03/31/2022 EGD WITH BIOPSY (WRVU 2.49) performed by David Dejesus MD at [facility] ??? PRO UPPER GI ENDOSCOPY, BIOPSY N/A 07/03/2022 EGD WITH BIOPSY (WRVU 2.49) performed by David Dejesus MD at [facility] ??? PRO UPPER GI ENDOSCOPY, DIAGNOSTIC N/A 04/03/2014 EGD, UPPER GI ENDOSCOPY performed by David Dejesus MD at [facility] ??? PRO UPPER GI ENDOSCOPY, DIAGNOSTIC N/A 03/01/2020 EGD, UPPER GI ENDOSCOPY performed by David Dejesus MD at [facility] Medications: Current Facility-Administered Medications: ??? barium [...] vial 1-4 Units, 1-4 Units, Subcutaneous, Q4H [facility], Elsie Erickson APRN ??? [START ON [...] for dosing. 15 mL 11 ??? Insulin [place], Disposable, (BD INSULIN PEN NEEDLE UF MINI) [...] flow sheets for I&O. L Leg incision MECHANICAL METER TESTER, well approximated with no drainage. PT worked [...] saw and discussed the recent MBS and ELEVATOR EXAMINER concerns. Based on Ishan's history, we know [...] MD aware. Up to commode with OT, ELEVATOR EXAMINER consulted. NGT maintained per protocol. Q2 turns maintained. PRN Zofran given X1. See flow sheetsfor I&O. L. Hip incision CDI- DANIELA with steri-strips in place. Spouse at bedside, [...] Last Occupational Therapy Recommendation: acute rehabilitation facility, alf facility with to be determined Plan for discharge is: [facility] / Swing Outpatient Agency/Support Group Needs: None Agency Referrals: Based on discussions with the multi-disciplinary healthcare team, the patient would benefit from SNF level of care at discharge. I have met with the outbound call center representative to: ?? discuss discharge planning needs. ?? provide the [facility], Office of Care Management letter from the [employer] pertaining to rehabreferrals. ?? provide a letter describing our affiliations within the [facility] and educate about their right to choose where referrals are sent. ?? provide the [facility] Star Quality Rating handout. ?? review the different levels of rehab including SNF, swing, and acute. ?? provide a list of facilities within their preferred geographic area. ?? request that they provide at least three choices for referral. They have requested referrals to: [facility] [address] [place] [address] [facility] (Previously [facility]) [address] [place] [address] [facility] [address] [place] [address] Does patient have COVID vaccine card: Yes; Copy obtained: No Note routed to a [employer] who will communicate referrals to facilities and [...] of Discharge: 09/07/2022 Marybeth Shelley RN, BSN Clinical Services Manager - Medicine Office of Care Management Office: Pager: [phone] * Consult Note - Aicha Mckeon MD [...] this assessment. Recommendations were communicated to primary trampoline team coach. Aicha Mckeon MD 09/03/2022 Coding Determination 1. [...] Minimal/Low [] Low [] Minimal/Low [] Low 64701 [] Moderate [x] Moderate [] Moderate [] Moderate 39172 [x] High [] High [x] High [x] High 48890 Final Coding Determination: High Associated attestation - Keenan Rey MD - 09/18/2022 1:06 PM EDT Psychiatry Attending Note I discussed this patient's situation with the resident but did not see the patient. I contributed to the formulation and treatment planning as documented in the resident's note. Keenan Rey MD Psychiatry Consultation Pager: [phone] * Consult Note - Ghulam Torres MD - 09/03/2022 10:18 AM EDT Serious Illness Conversation Date of Conversation: 09/03/2022 Discussion with: Patient + Agent/Surrogate ?? Understanding of illness: Accurate understanding of prognosis or disease trajectory I met with Ishan and her Antonio at bedside. They've been 25 years. Met on [employer] online 25 years ago. He went onto a chat group, made a lot of jokes and Ishan private messaged him. It's been love ever since. Ishan moved out here to [place] to be with Antonio from [place]. They have 2boys together (Estiven 23 in [employer]; and Richard 19 studying at [employer] in politics economics). They are so proud [...] Strengths: Family Sara or spirituality As above. [place] family. 2 sons Richard and Estiven. Self describe recovering Catholics with a smile. Will engage Mill Controller for prayers of healing and support alongside [...] Rehab rojelio # Healing arts engaged # Mill Controller referral made # Pet Therapy if they [...] with the patient, counseling with the patient's child care attendant(s), coordination with the consulting service, coordination with [...] bedside. They've been 25 years. Met on [email or web address] online 25 years ago. He went onto a chat group, made a lot of jokes and Ishan private messaged him. It's been love ever since. Ishan moved out here to [place] to be with Antonio from [place]. They have 2boys together (Estiven 23 in [employer]; and Richard 19 studying at [employer] in politics economics). They are so proud [...] Strengths: Family Sara or spirituality As above. [place] family. 2 sons Richard and Estiven. Self describe recovering Catholics with a smile. Will engage Mill Controller for prayers of healing and support alongside [...] Rehab rojelio # Healing arts engaged # Mill Controller referral made # Pet Therapy if they [...] soft and slowed. ?? Language: fluent in cuban and without paraphasic errors ?? Mood: I [...] this assessment. Recommendations were communicated to primary trampoline team coach. Aicha Mckeon MD 09/02/2022 Coding Determination 1. [...] Minimal/Low [] Low [] Minimal/Low [] Low 90929 [] Moderate [x] Moderate [] Moderate [] Moderate 46273 [x] High [] High [x] High [x] High 92261 Final Coding Determination: High Associated attestation - Keenan Rey MD - 09/18/2022 1:05 PM EDT Psychiatry Attending Note I discussed this patient's situation with the resident but did not see the patient. I contributed to the formulation and treatment planning as documented in the resident's note. Keenan Rey MD Psychiatry Consultation Pager: [phone] * Consult Note - Dipak Chiang RN [...] tube feeding Intake (%): 0% Current bed: [facility] Assessment:Patient appears with fungal rash at [...] HOB higher than 30 degrees) Use a NantMobile chair cushion beneath patient at all times [...] Dipak Chiang RN on secure chat, pager [phone] or the wound care team at [phone] or pager [phone] with skin and wound care concerns or [...] (2-assist currently) andis not yet cleared by ELEVATOR EXAMINER for diet. Of note, neurology was involved [...] BX performed by David Dejesus MD at [facility] ??? PRO COLONOSCOPY, DIAGNOSTIC N/A 03/01/2020 COLONOSCOPY, DIAGNOSTIC performed by Dvaid Dejesus MD at [facility] ??? PRO ENDOSCOPIC US EXAM, ESOPH N/A 03/31/2022 UPPER EUS- ENDOSCOPIC ULTRASOUND performed by David Dejesus MD at [facility] ??? PRO UPPER GI ENDOSCOPY, BIOPSY N/A 04/03/2014 UPPER GASTROINTESTINAL ENDOSCOPY,WITH BIOPSY SINGLE OR MULTIPLE performed by David [facility]us MDat [facility] ??? PRO UPPER GI ENDOSCOPY, BIOPSY N/A 03/20/2016 EGD WITH BIOPSY performed by David Dejesus MD at [facility] ??? PRO UPPER GI ENDOSCOPY, BIOPSY N/A 11/22/2018 EGD WITH BIOPSY (WRVU 2.49) performed by David Dejesus MD at [facility] ??? PRO UPPER GI ENDOSCOPY, BIOPSY N/A 03/01/2020 UPPER GASTROINTESTINAL ENDOSCOPY,WITH BIOPSY SINGLE OR MULTIPLE (WRVU 2.49) performed by David Dejesus MD at [facility] ??? PRO UPPER GI ENDOSCOPY, BIOPSY N/A 09/23/2021 EGD WITH BIOPSY (WRVU 2.49) performed by David Dejesus MD at [facility] ??? PRO UPPER GI ENDOSCOPY, BIOPSY N/A 03/31/2022 EGD WITH BIOPSY (WRVU 2.49) performed by David Dejesus MD at [facility] ??? PRO UPPER GI ENDOSCOPY, BIOPSY N/A 07/03/2022 EGD WITH BIOPSY (WRVU 2.49) performed by David Dejesus MD at [facility] ??? PRO UPPER GI ENDOSCOPY, DIAGNOSTIC N/A 04/03/2014 EGD, UPPER GI ENDOSCOPY performed by David Dejesus MD at [facility] ??? PRO UPPER GI ENDOSCOPY, DIAGNOSTIC N/A 03/01/2020 EGD, UPPER GI ENDOSCOPY performed by David Dejesus MD at [facility] Inpatient Medications: Current Facility-Administered Medications Medication Dose Route Frequency Provider Last Rate Last Admin ??? insulin glargine-ygfn (Semglee) (100 unit/mL) subcutaneous injection vial 16 Units 16 Units Subcutaneous Daily Elsie Erickson APRN 16 Units at 09/01/22 0841 ??? [START ON 09/02/2022] insulin lispro protamine-insulin lispro (HumaLOG MIX 75/25) (100 units/mL)subcutaneous injection vial 33 Units 33 Units Subcutaneous Daily Elsie Erickson INTEGRATION PROJECT MANAGER ??? tube feeding diet 1,320 mL Per [...] Units 1-5 Units Subcutaneous Q4H Elsie Dang, INTEGRATION PROJECT MANAGER 1 Units at 09/01/22 1134 ??? polyethylene [...] tablet 1,000 mg 1,000 mg Oral Q8H [facility] Tyler Cobb MD 1,000 mg at [...] ; has two adult sons (one at [employer], one lives with friends somewhere relatively locally); [...] rhythm and soft ?? Language: fluent in cuban ?? Mood: depressed Affect: constricted and mood-congruent ?? Thought Process: linear and logical ?? Associations: intact ?? Thought Content: no homicidal ideation no suicidal ideation ; no PI/delusions Perception: denied auditory hallucinations denied visual hallucinations not observed responding to internal stimuli ?? Orientation: oriented to self; oriented to month/day/year; oriented to [facility] and being in ahospital but could [...] this assessment. Recommendations were communicated to primary trampoline team coach Irwin Jones. KEENAN REY MD 09/01/2022 Coding [...] [] Minimal - [] Minimal [] Straightforward 80793 [] Low [] Low [] Low [] Low 41300 [] Moderate [x] Moderate [] Moderate [] Moderate 83423 [x] High [] High [x] High [x] High 70084 Final Coding Determination: High: 34222 * Consult Note - Nery Ott MD [...] on NRB. She was initially brought to [facility]. There labs showed WBC 15, Hgb 11, [...] on hep gtt, loaded with Aspirin,started on FREIGHT SORTER, diuresed, and sent to [facility] for Cardiology workup. This was ultimately felt to be [place] cardiomyopathy and she was medically managed. She was transferred to the medical service yesterday for further evaluation as she is having dysphagia and regurgitation. Per report, she has a dobhoff in place. She was seen by ELEVATOR EXAMINER today who note inconsistent symptoms/signs of aspiration [...] BX performed by David Dejesus MD at [facility] ??? PRO COLONOSCOPY, DIAGNOSTIC N/A 03/01/2020 COLONOSCOPY, DIAGNOSTIC performed by David Dejesus MD at [facility] ??? PRO ENDOSCOPIC US EXAM, ESOPH N/A 03/31/2022 UPPER EUS- ENDOSCOPIC ULTRASOUND performed by David Dejesus MD at [facility] ??? PRO UPPER GI ENDOSCOPY, BIOPSY N/A 04/03/2014 UPPER GASTROINTESTINAL ENDOSCOPY,WITH BIOPSY SINGLE OR MULTIPLE performed by [facility]us MDat [facility] ??? PRO UPPER GI ENDOSCOPY, BIOPSY N/A 03/20/2016 EGD WITH BIOPSY performed by David Dejesus MD at [facility] ??? PRO UPPER GI ENDOSCOPY, BIOPSY N/A 11/22/2018 EGD WITH BIOPSY (WRVU 2.49) performed by David Dejesus MD at [facility] ??? PRO UPPER GI ENDOSCOPY, BIOPSY N/A 03/01/2020 UPPER GASTROINTESTINAL ENDOSCOPY,WITH BIOPSY SINGLE OR MULTIPLE (WRVU 2.49) performed by David Dejesus MD at [facility] ??? PRO UPPER GI ENDOSCOPY, BIOPSY N/A 09/23/2021 EGD WITH BIOPSY (WRVU 2.49) performed by David Dejesus MD at [facility] ??? PRO UPPER GI ENDOSCOPY, BIOPSY N/A 03/31/2022 EGD WITH BIOPSY (WRVU 2.49) [facility] ENDOSCOPY ??? PRO UPPER GI ENDOSCOPY, BIOPSY N/A 07/03/2022 EGD WITH BIOPSY (WRVU 2.49) performed by David Dejesus MD at [facility] ??? PRO UPPER GI ENDOSCOPY, DIAGNOSTIC N/A 04/03/2014 EGD, UPPER GI ENDOSCOPY performed by David Dejesus MD at [facility] ??? PRO UPPER GI ENDOSCOPY, DIAGNOSTIC N/A 03/01/2020 EGD, UPPER GI ENDOSCOPY performed by David Dejesus MD at [facility] SOCIAL HX: Social History Socioeconomic History [...] for dosing. 15 mL 11 ??? Insulin [place], Disposable, (BD INSULIN PEN NEEDLE UF MINI) 31 x 3/16 Needle 1 Device [place] [facility]Non-Drug; Combo Route) route 3 times [...] IMAGING: Reports and images personally reviewed in [facility]. Images independently interpreted. XR Fluoro Barium [...] who have questions please contact the health infant childcare provider that requested your imaging first. Electronically signed by: Aron Billings MD, [facility] ([phone]), at 08/31/2022 12:[address] Angiogram Coronary [...] who have questions please contact the health infant childcare provider that requested your imaging first. Electronically signed by: Arlette Mays MD, [facility] ([phone]), at 08/27/2022 11:[address] Chest wo Contrast (Generic) Final Result Stable findings of multifocal pneumonia. No interval abnormality. Thank you for letting us participate in the care of this patient. If you are a health care provider and have any questions regarding this report, please contact the number below. For patients who have questions please contact the health infant childcare provider that requested your imaging first. Electronically signed by: MINH QUIROGA MD, [facility] ([phone]), at 08/27/2022 10:48 AM XR Hip 2-3 Views Left Final Result No radiographic evidence of infection. Thank you for letting us participate in the care of this patient. If you are a health care provider and have any questions regarding this report, please contact the number below. For patients who have questions please contact the health infant childcare provider that requested your imaging first. Electronically signed by: Viktor Cervantes MD, [facility] ([phone]), at 08/22/2022 12:43 PM XR Pelvis (Generic) Final Result No radiographic evidence of infection status post left hip ORIF. Thank you for letting us participate in the care of this patient. If you are a health care provider and have any questions regarding this report, please contact the number below. For patients who have questions please contact the health infant childcare provider that requested your imaging first. Electronically signed by: Richard Billings MD, [facility] ([phone]), at 08/22/2022 10:[address] Hip w [...] who have questions please contact the health infant childcare provider that requested your imaging first. Electronically signed by: Aicha Chowdhury MD, [facility] ([phone]), at 08/21/2022 9:[address] Chest w [...] who have questions please contact the health infant childcare provider that requested your imaging first. Electronically signed by: Jagdeep Lee MD, [facility] ([phone]), at 08/21/2022 6:56 AM MRI Brain wo Contrast Final Result No acute infarction, mass or mass effect. Thank you for letting us participate in the care of this patient. If you are a health care provider and have any questions regarding this report, please contact the number below. For patients who have questions please contact the health infant childcare provider that requested your imaging first. Electronically signed by: Jagdeep Lee MD, [facility] ([phone]), at 08/20/2022 3:34 AM XR Chest for [...] who have questions please contact the health infant childcare provider that requested your imaging first. Electronically signed by: Alan De Guzman MD, [facility] ([phone]), at 08/19/2022 4:39 PM XR Chest One [...] who have questions please contact the health infant childcare provider that requested your imaging first. Electronically signed by: Alan De Guzman MD, [facility] ([phone]), at 08/19/2022 3:[address] Head wo Contrast (Generic) Final Result No acute intracranial process. Thank you for letting us participate in the care of this patient. If you are a health care provider and have any questions regarding this report, please contact the number below. For patients who have questions please contact the health infant childcare provider that requested your imaging first. Electronically signed by: Antonio Jordan MD, [facility] ([phone]), at 08/18/2022 3:18 PM XR Abdomen 1 [...] who have questions please contact the health infant childcare provider that requested your imaging first. Electronically signed by: Jenn Pina MD, [facility] ([phone]), at 08/17/2022 2:[address] Head wo Contrast (Generic) Final Result No acute intracranial abnormality and no change from prior Thank you for letting us participate in the care of this patient. If you are a health care provider and have any questions regarding this report, please contact the number below. For patients who have questions please contact the health infant childcare provider that requested your imaging first. Electronically signed by: Moustapha Correa MD, [facility] ([phone]), at 08/16/2022 11:19 PM XR Chest One [...] who have questions please contact the health infant childcare provider that requested your imaging first. Electronically signed by: Alfonso Adams MD, [facility] ([phone]), at 08/16/2022 10:56 AM XR Abdomen 1 [...] who have questions please contact the health infant childcare provider that requested your imaging first. Electronically signed by: Liliane Adams MD, [facility] ([phone]), at 08/15/2022 9:05 AM XR Abdomen 1 [...] who have questions please contact the health infant childcare provider that requested your imaging first. Electronically signed by: Davi Terry MD, [facility] ([phone]), at 08/15/2022 6:41 AM XR Chest One [...] who have questions please contact the health infant childcare provider that requested your imaging first. Chest One [...] who have questions please contact the health infant childcare provider that requested your imaging first. Electronically signed by: Davi Terry MD, [facility] ([phone]), at 08/15/2022 3:53 AM Film Library- Storage [...] She had a modified barium swallow with ELEVATOR EXAMINER yesterday that showed tamara oropharyngeal aspiration. I [...] of the hospital. Recommendations: -Continue working with ELEVATOR EXAMINER -If no meaningful improvement in oropharyngeal dysphagia [...] them as documented. Cesar Cervantes MD, MS uc architect Family Specialist, Gastroenterology and Hepatology * Plan of Care [...] to be determined Last Occupational Therapy Recommendation: alf facility, acute rehabilitation facility with to be [...] Manager- Medicine Office of Care Management Office# [phone] Pager: [phone] * Plan of Care - Vicente Zarco [...] [] 701-900 mg [] 901-1100 mg [] 7216-1926 mg [] 5816-2722 mg [] Above 1500 mg Medications: No [...] for dosing. 15 mL 11 ??? Insulin [place], Disposable, (BD INSULIN PEN NEEDLE UF MINI) 31 x 3/16 Needle 1 Device [place] [facility]Non-Drug; Combo Route) route 3 times [...] weeks. Will recheck 25, Vit D at [facility] outpatient follow up appointment. C. Will [...] to be determined Last Occupational Therapy Recommendation: alf facility with to be determined Plan for discharge is: Pending Hospital Course and PT/OT Recommendations Outpatient Agency/Support Group Needs: Other *TBD Agency Referrals: Family has requested [facility] for rehab. Pt still with [facility] [...] 08/31/2022 Office of Care Management Surgery Team Clinical Services Manager Avani DENT, RN [email or web address] Pager #[phone] * Consult Note - Elsie Erickson APRN [...] deficiency anemia,??GERD??c/b??esophagitis &??Farrell's esophagus??presenting in transfer from [facility], suspected to be in cardiogenic shock and found to be in mixed shock with concern for stress cardiomyopathy. We are being consulted to assist with transitioning this patient off of her drip. Patient remains on a tube feeding diet Peptamen AF by NG tube continuous at 45mls/hr. Diabetes History: Ishan Irving has had diabetes since diagnosed with gestational diabetes in 2002 and then [id number]. Current outpatient diabetes regimen: Diabetes Provider: PCP [...] and negative except as noted per HPI. [facility] Past Medical History: Diagnosis Date ??? [...] deficiency anemia,??GERD??c/b??esophagitis &??Farrell's esophagus??presenting in transfer from [facility], suspected to be in cardiogenic shock and [...] Erickson APRN Endocrinology Diabetes Management Service Pager: [phone] 70 minutes of this 80 minute visit [...] deficiency anemia,??GERD??c/b??esophagitis &??Farrell's esophagus??presented as transfer from [facility] 08/15/22 suspected to be in cardiogenic shock [...] BX performed by David Dejesus MD at [facility] ??? PRO COLONOSCOPY, DIAGNOSTIC N/A 03/01/2020 COLONOSCOPY, DIAGNOSTIC performed by David Dejesus MD at [facility] ??? PRO ENDOSCOPIC US EXAM, ESOPH N/A 03/31/2022 UPPER EUS- ENDOSCOPIC ULTRASOUND performed by David Dejesus MD at [facility] ??? PRO UPPER GI ENDOSCOPY, BIOPSY N/A 04/03/2014 UPPER GASTROINTESTINAL ENDOSCOPY,WITH BIOPSY SINGLE OR MULTIPLE performed by David [facility]us MDat [facility] ??? PRO UPPER GI ENDOSCOPY, BIOPSY N/A 03/20/2016 EGD WITH BIOPSY performed by David Dejesus MD at [facility] ??? PRO UPPER GI ENDOSCOPY, BIOPSY N/A 11/22/2018 EGD WITH BIOPSY (WRVU 2.49) performed by David Dejesus MD at [facility] ??? PRO UPPER GI ENDOSCOPY, BIOPSY N/A 03/01/2020 UPPER GASTROINTESTINAL ENDOSCOPY,WITH BIOPSY SINGLE OR MULTIPLE (WRVU 2.49) performed by David Dejesus MD at [facility] ??? PRO UPPER GI ENDOSCOPY, BIOPSY N/A 09/23/2021 EGD WITH BIOPSY (WRVU 2.49) performed by David Dejesus MD at [facility] ??? PRO UPPER GI ENDOSCOPY, BIOPSY N/A 03/31/2022 EGD WITH BIOPSY (WRVU 2.49) performed by David Dejesus MD at [facility] ??? PRO UPPER GI ENDOSCOPY, BIOPSY N/A 07/03/2022 EGD WITH BIOPSY (WRVU 2.49) performed by David Dejesus MD at [facility] ??? PRO UPPER GI ENDOSCOPY, DIAGNOSTIC N/A 04/03/2014 EGD, UPPER GI ENDOSCOPY performed by David Dejesus MD at [facility] ??? PRO UPPER GI ENDOSCOPY, DIAGNOSTIC N/A 03/01/2020 EGD, UPPER GI ENDOSCOPY performed by David Dejesus MD at [facility] Allergies Allergen Reactions ??? Meperidine Hcl [...] for dosing. 15 mL 11 ??? Insulin [place], Disposable, (BD INSULIN PEN NEEDLE UF MINI) 31 x 3/16 Needle 1 Device by [facility]Non-Drug; Combo Route) route 3 times [...] in M/R/U distributions Motor intact wrist flexion/extension, sales clerk Brisk capillary refill distally Left Upper Extremity Exam: No ecchymosis, erythema, or overlying skin changes No effusion in shoulder / elbow / wrist No obvious TTP clavicle, shoulder, humerus, elbow, forearm, wrist, hand Apparent painless range of motion of shoulder / elbow / wrist / fingers Sensation appears intact to light touch in M/R/U distributions Motor intact wrist flexion/extension, sales clerk Brisk capillary refill distally Right Lower Extremity [...] infection. Orthopaedics will sign off. Please page [phone] when the patient is extubated and examinable [...] pancreatitis, GERD/Barrets esophagitis who was transferred from [facility] with cardiogenic shock. Patient fell on August [...] started on heparin infusion and transferred to [facility] on 08/15. Vasopressor requirement on admission. Pip/tazo [...] follow. Please page ID Red team (pager [phone]) with questions or concerns. Stefan Garsia MD 08/20/2022 3:35 PM Pager: [phone] Infectious Diseases Attending I saw the patient with the infectious diseases fellow. I have made some modifications and agree with the presentation of data and the assessment and plan as outlined above. Parris Leyva MD Professor, Department of Medicine Page [phone] minutes of this 80 minute visit [...] potential sources identified. Low overall suspicion for MANAGER COMBINATION infection given recent MRI and improvement in [...] pressor support, and she was transferred to [facility] on 08/14/22. Over the course of several [...] = 300 test strips. ??? Blood-Glucose Meter ([employer] InteractiveTOUCH ULTRA2) Kit by Other route. 1 = one blood glucose meter kit. ??? divalproex EC (DEPAKOTE) 500 mg, Oral, 2 TIMES DAILY ??? HumuLIN N NPH Insulin KwikPen 20 Units, Subcutaneous, DAILY ??? insulin aspart U-100 (NOVOLOG FLEXPEN U-100 INSULIN) 10-20 Units, Subcutaneous, 3 TIMES DAILY BEFORE MEALS, Refer to correction factor scale for dosing. ??? Insulin [place], Disposable, (BD INSULIN PEN NEEDLE UF MINI) [...] Negative mcL Appearance UA Clear Clear Spec [place] UA 1.018 1.005 - 1.030 Color UA Yellow Yellow Culture Reflexed No Urinalysis Microscopic Exam Result Value Ref Range RBC UA 1 0 - 4 /HPF WBC UA 3 0 - 5 /HPF Bacteria UA Rare (A) None /HPF Yeast [place] UA Occasional (A) None /HPF Yeast Hyph UA Occasional (A) None /HPF Squam Epith UA 1 <=4 /HPF Hyaline Cast UA 2 0 - 2 /LPF Lactate, whole blood, send to lab ([facility]) Result Value Ref Range Lactate WB 1.6 [...] ? Tim Emmanuel MD Department [place] [address] Pager #[phone] Email: [email or web address] ?? * Plan of Care - Carlos Arnold RN - 08/19/2022 4:50 PM EDT Peripherally Inserted Central Catheter (PICC) Teaching Sheet Peripherally inserted central catheters (iolm-wh-drol) (PICC) are used when you need IV [...] midline catheter? PICC lines are used for supervisor intermediates treatments. PICC lines may be used for [...] can be set up via the nurse Clinical Services Manager to help you. What are possible complications [...] Efficacy, Safety, Use, and Administration of Cathflo, [employer] 2005 * Consult Note - Tim Emmnauel MD - 08/19/2022 7:02 AM EDT Neurology [...] pressor support, and she was transferred to [facility] on 08/14/22. Over the course of several [...] correction factor scale for dosing. ??? Insulin [place], Disposable, (BD INSULIN PEN NEEDLE UF MINI) [...] mg/dL Lactate, whole blood, send to lab ([facility]) Result Value Ref Range Lactate WB 1.6 [...] hours. Tim Emmanuel MD Department [place] [address] Pager #[phone] Email: [email or web address] * Consult Note - Nihcelle Barrett MD - 08/18/2022 12:32 PM EDT [...] correction factor scale for dosing. ??? Insulin [place], Disposable, (BD INSULIN PEN NEEDLE UF MINI) [...] Neurophysiology * Consult Note - Veena King, [facility] - 08/18/2022 9:59 AM EDT [...] Alternately, during off-hours you niurka lexx call [phone] to contact a pharmacist. * Consult Note - Lorene Michelle [facility] - 08/17/2022 4:53 PM EDT [facility] Pharmacokinetics Note Drug: Vancomycin Pharmacokinetic target: AUC24 (range) 400-600 mg/L.hr Current regimen: 750 mg IV every 24 hours Ishan Irving is a(n) 62 years old female receiving Vancomycin 750 mg IV every 24 hours for pneumonia Recent measured serum creatinine values: 08/17/2022 00:45 1.1 mg/dL 08/16/2022 18:00 1.15 mg/dL 08/16/2022 03:36 1.42 mg/dL Assessment: Analysis of the most recent level(s) using Kizoom gives the following patient-specific pharmacokinetic parameters: CL: [...] COVID test: Lab Results Component Value Date [id number] Not Detected 08/15/2022 Past medical History: Past Medical History: Diagnosis Date ??? Bipolar disorder 02/12/2022 Hospitalizations Within the Past 30 Days: no previous admission in last 30 days Current Decision-Making Capacity: Other (spouse is decision maker based on surrogacy; no AD in place) If AD's have not been completed the following surrogate would be surrogate decision maker per [place] decision making law. (Only good for 180 days) Any patient receiving care in [place] must abide by [place] law. The hierarchy for surrogate decision making [...] (i) The agent with financial power of ip attorney or a conservator appointed in accordance [...] hip recovery) Home Address confirmed as: [address] [facility] [address] Social & Family Supports: All names listed below confirmed with patient as current and correct Extended Emergency Contact Information Primary Emergency Contact: Antonio Irvnig Mobile Relation: Spouse Current Care Provided by: [...] N/A ; Prescription Coverage: Yes Preferred Pharmacy: [facility] [address] [address] Status: Patient is a : No Primary Care Provider confirmed: Chris Stanley APRN [phone] Patient/Caregiver Goals of Treatment: to be determined [...] RN * Consult Note - Tapan Hastings [facility] - 08/15/2022 1:05 AM EDT Clinical Pharmacist Note - VancFD Ishan Irving [id number] Ishan Irving is a 62 y.o. [...] any questions you may have. Alternately,during off-hours (9p-7a) you may call [phone] to contact a pharmacist. Tapan Hastings RPH documented in this encounter Plan of Treatment Upcoming Encounters Date Type Department Care Team (Late st Contact Info) Description 04/26/2024 8:30 AM EST [place]ment [place] [phone] Gavin Carrillo MD [facility] INTERVENT[place] [address] 06/05/2024 1:20 PM EST Office Visit Cardiology at [address] [phone] Milagros Hernandez MD [facility] [place] [address] Pending Results Name Type Priority Associated Diagnoses [...] 5:06 AM EDT DIFFERENTIAL, AUTOMATED Routine 09/21/19 5:06 AM EDT HC CBC,PLT & AUTO [...] HC CBC,PLT & AUTO DIFF Routine 3 4:30 AM EDT HC PHOSPHORUS, SERUM Routine [...] GLUCOSE Routine 08/21/2022 8:28 AM EDT HC PC FUNGITELL; (1, 3) [id number]-[id number] Routine 08/21/2022 8:00 AM EDT POCT GLUCOSE [...] MD IMG IR ORDERABLES Performing Organization Address City/[facility]/ZIP Co de Phone Number [place], [place] * POCT Glucose (09/25/2022 6:26 AM EDT) Glucose, POC 155 65 - 199 mg/dL [facility] Comment: Supplemental ranges: <140 mg/dL before meals <180 mg/dL all other times of the day Blood 09/25/2022 6:26 AM EDT 09/25/2022 6:26 AM EDT Jose Mcleod MD POINT OF CARE TEST O RDERABLES Performing Organization Address [facility] Co de Phone Number [facility] [place] [address] * (ABNORMAL) Basic Metabolic Panel (non-fasting) (09/25/2022 3:11 AM EDT) Glucose 187 65 - 199 mg/dL [facility] Comment:Diabetes: >=200 mg/d L plus symptoms Blood Urea Nitrogen 32(H) 8 - 18 mg/dL [facility] Creatinine 0.62(L) 0.70 - 1.20 mg/dL [facility] Sodium 142 135 - 145 mmol/L [facility] Potassium 4.6 3.5 - 5.0 mmol/L [facility] Comment: Please note: ??Patients with WBC >100,000 may have falsely elevated Potassium levels. ??For accurate Potassium quantification in these patients send serum separator tube (gold top) for subsequent determinations. ??Contact the Clinical Chemistry Laboratory if there are any questions. Chloride 103 98 - 107 mmol/L [facility] Carbon Dioxide 31 22 - 31 mmol/L [facility] Anion Gap 8 5 - 15 mmol/L [facility] Calcium 9.8 8.5 - 10.5 mg/dL [facility] Est Glomerular Filtration Rate 101 >=60 mL/min/1. 73 m?? [facility] Comment: This patient's estimated GFR [...] Pascal MD CHEMISTRY ORDERABLES Performing Organization Address [facility] Co de Phone Number [facility] [place] [address] * Phosphorus (09/25/2022 3:11 AM EDT) Phosphorus 4.0 2.5 - 4.5 mg/dL [facility] Blood 09/25/2022 3:11 AM EDT 09/25/2022 3:54 AM EDT Narrative Resulting Agency Comment Spec In Lab Richard Pascal MD CHEMISTRY ORDERABLES Performing Organization Address [facility] Co de Phone Number [facility] [place] [address] * Magnesium (09/25/2022 3:11 AM EDT) Magnesium 0.95 0.69 - 1.07 mmol/L [facility] Blood 09/25/2022 3:11 AM EDT 09/25/2022 3:54 AM EDT Narrative Resulting Agency Comment Spec In Lab Richard Pascal MD CHEMISTRY ORDERABLES Performing Organization Address [facility] Co de Phone Number [facility] [place] [address] * (ABNORMAL) POCT Glucose (09/24/2022 8:44 PM EDT) Glucose, POC 218(H) 65 - 199 mg/dL [facility] Comment: Supplemental ranges: <140 mg/dL before meals <180 mg/dL all other times of the day Blood 09/24/2022 8:44 PM EDT 09/24/2022 8:44 PM EDT Jose Mcleod MD POINT OF CARE TEST O RDERABLES Performing Organization Address City/[facility] Co de Phone Number [facility] [place] [address] * (ABNORMAL) POCT Glucose (09/24/2022 4:03 PM EDT) Glucose, POC 243(H) 65 - 199 mg/dL [facility] Comment: Supplemental ranges: <140 mg/dL before meals <180 mg/dL all other times of the day Blood 09/24/2022 4:03 PM EDT 09/24/2022 4:03 PM EDT Jose Mcleod MD POINT OF CARE TEST O RDERABLES Performing Organization Address [facility] Co de Phone Number [facility] [place] [address] * (ABNORMAL) POCT Glucose (09/24/2022 11:44 AM EDT) Glucose, POC 272(H) 65 - 199 mg/dL [facility] Comment: Supplemental ranges: <140 mg/dL before meals <180 mg/dL all other times of the day Blood 09/24/2022 11:4 4 AM EDT 09/24/2022 11:44 AM EDT Jose Mcleod MD POINT OF CARE TEST O RDERABLES Performing Organization Address City/[facility] Co de Phone Number [facility] [place] [address] * POCT Glucose (09/24/2022 6:21 AM EDT) Glucose, POC 186 65 - 199 mg/dL [facility] Comment: Supplemental ranges: <140 mg/dL before meals <180 mg/dL all other times of the day Blood 09/24/2022 6:21 AM EDT 09/24/2022 6:21 AM EDT Jose Mcleod MD POINT OF CARE TEST O RDERABLES Performing Organization Address City/[facility] Co de Phone Number [facility] [place] [address] * Lavender Tube HOLD (09/24/2022 5:31 AM EDT) Lavender Hold Sample in lab. [facility] Blood Venous Draw / Unknown 09/24/2022 5:31 AM EDT 09/24/2022 5:48 AM EDT Jigar Streeter MD HEMATOLOGY ORDERABLE S Performing Organization Address [facility] Co de Phone Number [facility] [place] [address] * (ABNORMAL) Basic Metabolic Panel (non-fasting) (09/24/2022 5:31 AM EDT) Glucose 188 65 - 199 mg/dL [facility] Comment:Diabetes: >=200 mg/d L plus symptoms Blood Urea Nitrogen 31(H) 8 - 18 mg/dL [facility] Creatinine 0.69(L) 0.70 - 1.20 mg/dL [facility] Sodium 139 135 - 145 mmol/L [facility] Potassium 4.5 3.5 - 5.0 mmol/L [facility] Comment: Please note: ??Patients with WBC >100,000 may have falsely elevated Potassium levels. ??For accurate Potassium quantification in these patients send serum separator tube (gold top) for subsequent determinations. ??Contact the Clinical Chemistry Laboratory if there are any questions. Chloride 100 98 - 107 mmol/L [facility] Carbon Dioxide 30 22 - 31 mmol/L [facility] Anion Gap 9 5 - 15 mmol/L [facility] Calcium 10.0 8.5 - 10.5 mg/dL [facility] Est Glomerular Filtration Rate 98 >=60 mL/min/1. 73 m?? [facility] Comment: This patient's estimated GFR [...] Pascal MD CHEMISTRY ORDERABLES Performing Organization Address [facility] Co de Phone Number [facility] [place] [address] * (ABNORMAL) Phosphorus (09/24/2022 5:31 AM EDT) Phosphorus 4.6(H) 2.5 - 4.5 mg/dL [facility] Blood 09/24/2022 5:31 AM EDT 09/24/2022 5:48 AM EDT Narrative Resulting Agency Comment Spec In Lab Richard Pascal MD CHEMISTRY ORDERABLES Performing Organization Address [facility] Co de Phone Number [facility] [place] [address] * Magnesium (09/24/2022 5:31 AM EDT) Magnesium 0.95 0.69 - 1.07 mmol/L [facility] Blood 09/24/2022 5:31 AM EDT 09/24/2022 5:48 AM EDT Narrative Resulting Agency Comment Spec In Lab Richard Pascal MD CHEMISTRY ORDERABLES Performing Organization Address [facility] Co de Phone Number [facility] [place] [address] * (ABNORMAL) POCT Glucose (09/23/2022 7:58 PM EDT) Glucose, POC 226(H) 65 - 199 mg/dL [facility] Comment: Supplemental ranges: <140 mg/dL before meals <180 mg/dL all other times of the day Blood 09/23/2022 7:58 PM EDT 09/23/2022 7:58 PM EDT Jose Mcleod MD POINT OF CARE TEST O RDERAREYMUNDO Performing Organization Address City/[facility]/ZIP Co de Phone Number [facility] [place] [address] * POCT Glucose (09/23/2022 4:40 PM EDT) Glucose, POC 94 65 - 199 mg/dL [facility] Comment: Supplemental ranges: <140 mg/dL before meals <180 mg/dL all other times of the day Blood 09/23/2022 4:40 PM EDT 09/23/2022 4:40 PM EDT Jose Mcleod MD POINT OF CARE TEST O RDERAREYMUNDO Performing Organization Address [facility] Co de Phone Number [facility] [place] [address] * (ABNORMAL) POCT Glucose (09/23/2022 2:00 PM EDT) Glucose, POC 276(H) 65 - 199 mg/dL [facility] Comment: Supplemental ranges: <140 mg/dL before meals <180 mg/dL all other times of the day Blood 09/23/2022 2:00 PM EDT 09/23/2022 2:00 PM EDT Jose Mcleod MD POINT OF CARE TEST O RDERABLES Performing Organization Address City/[facility] Co de Phone Number [facility] [place] [address] * (ABNORMAL) POCT Glucose (09/23/2022 1:14 PM EDT) Glucose, POC 324(H) 65 - 199 mg/dL [facility] Comment: Supplemental ranges: <140 mg/dL before meals <180 mg/dL all other times of the day Blood 09/23/2022 1:14 PM EDT 09/23/2022 1:14 PM EDT Jose Mcleod MD POINT OF CARE TEST O RDERABLES Performing Organization Address City/[facility]/ZIP Co de Phone Number [facility] [place] [address] * (ABNORMAL) POCT Glucose (09/23/2022 11:37 AM EDT) Glucose, POC 291(H) 65 - 199 mg/dL [facility] Comment: Supplemental ranges: <140 mg/dL before meals <180 mg/dL all other times of the day Blood 09/23/2022 11:3 7 AM EDT 09/23/2022 11:37 AM EDT Jose Mcleod MD POINT OF CARE TEST O RDERABLES Performing Organization Address [facility] Co de Phone Number [facility] [place] [address] * POCT Glucose (09/23/2022 6:24 AM EDT) Glucose, POC 191 65 - 199 mg/dL [facility] Comment: Supplemental ranges: <140 mg/dL before meals <180 mg/dL all other times of the day Blood 09/23/2022 6:24 AM EDT 09/23/2022 6:24 AM EDT Jose Mcleod MD POINT OF CARE TEST O RDERABLES Performing Organization Address City/[facility] Co de Phone Number [facility] [place] [address] * Scan, Peripheral Blood (09/23/2022 5:02 AM EDT) Plat estimate Normal [facility] RBC Morphology Abnormal [facility] Microcyte 6-10 /HPF [facility] Hypochromia Moderate [facility] Ovalocytes 1-5 /HPF [facility] Target Cells 1-5 /HPF [facility] Blood 09/23/2022 5:02 AM EDT 09/23/2022 5:23 AM EDT Narrative Resulting Agency Comment Spec In Lab Alan Hunt MD HEMATOLOGY ORDERABLE S [facility] [place] [address] * (ABNORMAL) Differential, Automated (09/23/2022 5:02 AM EDT) Neutrophil % 51.8 % [facility] Neutrophil Absolute 3.50 1.70 - 6.10 x10(3)/mc L [facility] Lymph % 32.8 % [facility] Lymphocytes Abs 2.2 0.9 - 3.2 x10(3)/mc L [facility] Monocyte % 10.3 % [facility] Monocyte Abs 0.7 0.3 - 0.9 x10(3)/mc L [facility] Eos % 2.8 % [facility] Eosinophils Abs 0.2 0.0 - 0.4 x10(3)/mc L [facility] Basophil % 1.6 % [facility] Baso Absolute 0.1 0.0 - 0.1 x10(3)/mc L [facility] Immature Gran % 0.70 % [facility] Comment: Immature granulocytes(IG's)percentage and absolute count will include metamyelocytes, myelocytes, and promyelocytes. Blood smears from CBCs yielding IG's will be scanned manually for concordance. If this scan disagrees with the automated IG or if promyelocytes are noted, a manual differential will be performed. Immature Gran Absolute 0.05(H) 0.00 - 0.04 x10(3)/mc L [facility] Blood 09/23/2022 5:02 AM EDT 09/23/2022 5:23 AM EDT Narrative Resulting Agency Comment Spec In Lab Alan Hunt MD HEMATOLOGY ORDERABLE S [facility] [place] [address] * (ABNORMAL) Hemogram (09/23/2022 5:02 AM EDT) White Blood Cell 6.8 4.0 - 9.5 x10(3)/mc L [facility] Red Blood Cell 4.78 4.00 - 5.21 x10(6)/mc L [facility] Hemoglobin 11.5(L) 11.7 - 15.5 g/dL [facility] Hematocrit 38.4 35.7 - 45.8 % [facility] Mean Cell Volume 80.3(L) 82.6 - 94.4 fL [facility] Mean Cell Hemoglobin 24.1(L) 27.1 - 32.0 pg [facility] Mean Cell Hemoglobin Concentration 29.9(L) 31.7 - 35.0 g/dL [facility] Platelet 222 145 - 357 x10(3)/mc L [facility] RDW Standard Deviation 81.1(H) 37.0 - 46.0 fL [facility] RDW coefficient of variation 28.9(H) 11.5 - 14.1 % [facility] Mean Platelet Volume Not Measured 7.6 - 12.9 fL [facility] NRBC% auto 0.0 % [facility] NRBC Absolute 0.000 0.000 - 0.000 x10(3)/ L [facility] Blood 09/23/2022 5:02 AM EDT 09/23/2022 5:23 AM EDT Narrative Resulting Agency Comment Spec In Lab Alan Hunt MD HEMATOLOGY ORDERABLE S [facility] [place] [address] * (ABNORMAL) Basic Metabolic Panel (non-fasting) (09/23/2022 5:02 AM EDT) Glucose 203(H) 65 - 199 mg/dL [facility] Comment:Diabetes: >=200 mg/d L plus symptoms Blood Urea Nitrogen 28(H) 8 - 18 mg/dL [facility] Creatinine 0.57(L) 0.70 - 1.20 mg/dL [facility] Sodium 139 135 - 145 mmol/L [facility] Potassium 4.6 3.5 - 5.0 mmol/L [facility] Comment: Please note: ??Patients with WBC >100,000 may have falsely elevated Potassium levels. ??For accurate Potassium quantification in these patients send serum separator tube (gold top) for subsequent determinations. ??Contact the Clinical Chemistry Laboratory if there are any questions. Chloride 101 98 - 107 mmol/L [facility] Carbon Dioxide 30 22 - 31 mmol/L [facility] Anion Gap 8 5 - 15 mmol/L [facility] Calcium 10.0 8.5 - 10.5 mg/dL [facility] Est Glomerular Filtration Rate 103 >=60 mL/min/1. 73 m?? [facility] Comment: This patient's estimated GFR [...] In Lab Richard Pascal MD CHEMISTRY ORDERABLES [facility] [place] [address] * Phosphorus (09/23/2022 5:02 AM EDT) Phosphorus 4.4 2.5 - 4.5 mg/dL [facility] Blood 09/23/2022 5:02 AM EDT 09/23/2022 5:23 AM EDT Narrative Resulting Agency Comment Spec In Lab Richard Pascal MD CHEMISTRY ORDERABLES Performing Organization Address City/[facility]/ZIP Co de Phone Number [facility] [place] [address] * Magnesium (09/23/2022 5:02 AM EDT) Magnesium 0.91 0.69 - 1.07 mmol/L [facility] Blood 09/23/2022 5:02 AM EDT 09/23/2022 5:23 AM EDT Narrative Resulting Agency Comment Spec In Lab Richard Pascal MD CHEMISTRY ORDERABLES Performing Organization Address [facility] Co de Phone Number [facility] [place] [address] * POCT Glucose (09/22/2022 8:23 PM EDT) Glucose, POC 185 65 - 199 mg/dL [facility] Comment: Supplemental ranges: <140 mg/dL before meals <180 mg/dL all other times of the day Blood 09/22/2022 8:23 PM EDT 09/22/2022 8:23 PM EDT Jose Mcleod MD POINT OF CARE TEST O RDERABLES Performing Organization Address [facility] Co de Phone Number [facility] [place] [address] * (ABNORMAL) POCT Glucose (09/22/2022 4:35 PM EDT) Glucose, POC 220(H) 65 - 199 mg/dL [facility] Comment: Supplemental ranges: <140 mg/dL before meals <180 mg/dL all other times of the day Blood 09/22/2022 4:35 PM EDT 09/22/2022 4:35 PM EDT Jose Mcleod MD POINT OF CARE TEST O RDERABLES Performing Organization Address City/[facility] Co de Phone Number [facility] [place] [address] * (ABNORMAL) POCT Glucose (09/22/2022 11:24 AM EDT) Glucose, POC 304(H) 65 - 199 mg/dL [facility] Comment: Supplemental ranges: <140 mg/dL before meals <180 mg/dL all other times of the day Blood 09/22/2022 11:2 4 AM EDT 09/22/2022 11:24 AM EDT Jose Mcleod MD POINT OF CARE TEST O GABRIELLA Performing Organization Address City/[facility] Co de Phone Number [facility] [place] [address] * POCT Glucose (09/22/2022 6:38 AM EDT) Glucose, POC 188 65 - 199 mg/dL [facility] Comment: Supplemental ranges: <140 mg/dL before meals <180 mg/dL all other times of the day Blood 09/22/2022 6:38 AM EDT 09/22/2022 6:38 AM EDT Jose Mcleod MD POINT OF CARE TEST O GABRIELLA Performing Organization Address [facility] de Phone Number [facility] [place] [address] * (ABNORMAL) Basic Metabolic Panel (non-fasting) (09/22/2022 5:44 AM EDT) Glucose Not Perf 65 - 199 [facility] Comment: Sample improperly processed prior to receipt. Diabetes: >=200 mg/dL plus symptoms Blood Urea Nitrogen 24(H) 8 - 18 mg/dL [facility] Creatinine 0.56(L) 0.70 - 1.20 mg/dL [facility] Sodium 139 135 - 145 mmol/L [facility] Potassium 4.7 3.5 - 5.0 mmol/L [facility] Comment: Please note: ??Patients with WBC >100,000 may have falsely elevated Potassium levels. ??For accurate Potassium quantification in these patients send serum separator tube (gold top) for subsequent determinations. ??Contact the Clinical Chemistry Laboratory if there are any questions. Chloride 101 98 - 107 mmol/L [facility] Carbon Dioxide 28 22 - 31 mmol/L [facility] Anion Gap 10 5 - 15 mmol/L [facility] Calcium 10.3 8.5 - 10.5 mg/dL [facility] Est Glomerular Filtration Rate 103 >=60 mL/min/1. 73 m?? [facility] Comment: This patient's estimated GFR [...] In Lab Richard Pascal MD CHEMISTRY ORDERABLES [facility] [place] [address] * Phosphorus (09/22/2022 5:44 AM EDT) Phosphorus 4.0 2.5 - 4.5 mg/dL [facility] Blood 09/22/2022 5:44 AM EDT 09/22/2022 7:46 AM EDT Narrative Resulting Agency Comment Spec In Lab Richard Pascal MD CHEMISTRY ORDERABLES [facility] [place] [address] * Magnesium (09/22/2022 5:44 AM EDT) Magnesium 0.89 0.69 - 1.07 mmol/L [facility] Blood 09/22/2022 5:44 AM EDT 09/22/2022 7:46 AM EDT Narrative Resulting Agency Comment Spec In Lab Richard Pascal MD CHEMISTRY ORDERABLES Performing Organization Address [facility] Co de Phone Number [facility] [place] [address] * POCT Glucose (09/21/2022 8:05 PM EDT) Glucose, POC 168 65 - 199 mg/dL [facility] Comment: Supplemental ranges: <140 mg/dL before meals <180 mg/dL all other times of the day Blood 09/21/2022 8:05 PM EDT 09/21/2022 8:05 PM EDT Jose Mcleod MD POINT OF CARE TEST O RDERABLES Performing Organization Address [facility] Co de Phone Number [facility] [place] [address] * (ABNORMAL) POCT Glucose (09/21/2022 4:28 PM EDT) Glucose, POC 258(H) 65 - 199 mg/dL [facility] Comment: Supplemental ranges: <140 mg/dL before meals <180 mg/dL all other times of the day Blood 09/21/2022 4:28 PM EDT 09/21/2022 4:28 PM EDT Jose Mcleod MD POINT OF CARE TEST O RDERAREYMUNDO Performing Organization Address [facility] Co de Phone Number [facility] [place] [address] * (ABNORMAL) POCT Glucose (09/21/2022 11:27 AM EDT) Glucose, POC 221(H) 65 - 199 mg/dL [facility] Comment: Supplemental ranges: <140 mg/dL before meals <180 mg/dL all other times of the day Blood 09/21/2022 11:2 7 AM EDT 09/21/2022 11:27 AM EDT Jose Mcleod MD POINT OF CARE TEST O RDERABLES Performing Organization Address City/[facility]/ZIP Co de Phone Number [facility] [place] [address] * (ABNORMAL) POCT Glucose (09/21/2022 7:00 AM EDT) Glucose, POC 211(H) 65 - 199 mg/dL [facility] Comment: Supplemental ranges: <140 mg/dL before meals <180 mg/dL all other times of the day Blood 09/21/2022 7:00 AM EDT 09/21/2022 7:00 AM EDT Olamide Stallings MD POINT OF CARE TEST O GABRIELLA Performing Organization Address [facility] Co de Phone Number [facility] [place] [address] * (ABNORMAL) Basic Metabolic Panel (non-fasting) (09/21/2022 5:54 AM EDT) Glucose 203(H) 65 - 199 mg/dL [facility] Comment:Diabetes: >=200 mg/d L plus symptoms Blood Urea Nitrogen 23(H) 8 - 18 mg/dL [facility] Creatinine 0.51(L) 0.70 - 1.20 mg/dL [facility] Sodium 137 135 - 145 mmol/L [facility] Potassium 4.6 3.5 - 5.0 mmol/L [facility] Comment: Please note: ??Patients with WBC >100,000 may have falsely elevated Potassium levels. ??For accurate Potassium quantification in these patients send serum separator tube (gold top) for subsequent determinations. ??Contact the Clinical Chemistry Laboratory if there are any questions. Chloride 101 98 - 107 mmol/L [facility] Carbon Dioxide 27 22 - 31 mmol/L [facility] Anion Gap 9 5 - 15 mmol/L [facility] Calcium 9.8 8.5 - 10.5 mg/dL [facility] Est Glomerular Filtration Rate 105 >=60 mL/min/1. 73 m?? [facility] Comment: This patient's estimated GFR [...] Pascal MD CHEMISTRY ORDERABLES Performing Organization Address City/[facility] Co de Phone Number [facility] [place] [address] * Phosphorus (09/21/2022 5:54 AM EDT) Phosphorus 4.0 2.5 - 4.5 mg/dL [facility] Blood 09/21/2022 5:54 AM EDT 09/21/2022 6:10 AM EDT Narrative Resulting Agency Comment Spec In Lab Richard Pascal MD CHEMISTRY ORDERABLES Performing Organization Address [facility] Co de Phone Number [facility] [place] [address] * Magnesium (09/21/2022 5:54 AM EDT) Magnesium 0.84 0.69 - 1.07 mmol/L [facility] Blood 09/21/2022 5:54 AM EDT 09/21/2022 6:10 AM EDT Narrative Resulting Agency Comment Spec In Lab Richard Pascal MD CHEMISTRY ORDERABLES Performing Organization Address [facility] Co de Phone Number [facility] [place] [address] * POCT Glucose (09/20/2022 11:25 PM EDT) Glucose, POC 166 65 - 199 mg/dL [facility] Comment: Supplemental ranges: <140 mg/dL before meals <180 mg/dL all other times of the day Blood 09/20/2022 11:2 5 PM EDT 09/20/2022 11:25 PM EDT Olamide Stallings MD POINT OF CARE TEST O GABRIELLA Performing Organization Address City/[facility]/ZIP Co de Phone Number [facility] [place] [address] * (ABNORMAL) POCT Glucose (09/20/2022 9:19 PM EDT) Glucose, POC 291(H) 65 - 199 mg/dL [facility] Comment: Supplemental ranges: <140 mg/dL before meals <180 mg/dL all other times of the day Blood 09/20/2022 9:19 PM EDT 09/20/2022 9:19 PM EDT Olamide Stallings MD POINT OF CARE TEST O HUGHERAREYMUNDO Performing Organization Address [facility]/ZIP Co de Phone Number [facility] [place] [address] * (ABNORMAL) POCT Glucose (09/20/2022 4:09 PM EDT) Glucose, POC 221(H) 65 - 199 mg/dL [facility] Comment: Supplemental ranges: <140 mg/dL before meals <180 mg/dL all other times of the day Blood 09/20/2022 4:09 PM EDT 09/20/2022 4:09 PM EDT Olamide Stallings MD POINT OF CARE TEST O RDERAREYMUNDO Performing Organization Address City/[facility] Co de Phone Number [facility] [place] [address] * (ABNORMAL) POCT Glucose (09/20/2022 11:06 AM EDT) Glucose, POC 221(H) 65 - 199 mg/dL [facility] Comment: Supplemental ranges: <140 mg/dL before meals <180 mg/dL all other times of the day Blood 09/20/2022 11:0 6 AM EDT 09/20/2022 11:06 AM EDT Olamide Stallings MD POINT OF CARE TEST O RDERABLES [facility] [place] [address] * POCT Glucose (09/20/2022 5:39 AM EDT) Glucose, POC 187 65 - 199 mg/dL [facility] Comment: Supplemental ranges: <140 mg/dL before meals <180 mg/dL all other times of the day Blood 09/20/2022 5:39 AM EDT 09/20/2022 5:39 AM EDT Olamide Stallings MD POINT OF CARE TEST O RDERABLES Performing Organization Address [facility] Co de Phone Number [facility] [place] [address] * (ABNORMAL) Differential, Automated (09/20/2022 5:06 AM EDT) Neutrophil % 43.5 % [facility] Neutrophil Absolute 2.83 1.70 - 6.10 x10(3)/mc L [facility] Lymph % 40.2 % [facility] Lymphocytes Abs 2.6 0.9 - 3.2 x10(3)/mc [facility] Monocyte % 11.1 % [facility] Monocyte Abs 0.7 0.3 - 0.9 x10(3)/mc L [facility] Eos % 2.8 % [facility] Eosinophils Abs 0.2 0.0 - 0.4 x10(3)/mc L [facility] Basophil % 1.5 % [facility] Baso Absolute 0.1 0.0 - 0.1 x10(3)/mc L [facility] Immature Gran % 0.90 % [facility] Comment: Immature granulocytes(IG's)percentage and absolute count will include metamyelocytes, myelocytes, and promyelocytes. Blood smears from CBCs yielding IG's will be scanned manually for concordance. If this scan disagrees with the automated IG or if promyelocytes are noted, a manual differential will be performed. Immature Gran Absolute 0.06(H) 0.00 - 0.04 x10(3)/mc L [facility] Blood 09/20/2022 5:06 AM EDT 09/20/2022 5:29 AM EDT Narrative Resulting Agency Comment Spec In Lab Alan Hunt MD HEMATOLOGY ORDERABLE S [facility] [place] [address] * (ABNORMAL) Hemogram (09/20/2022 5:06 AM EDT) White Blood Cell 6.5 4.0 - 9.5 x10(3)/[facility] Red Blood Cell 4.68 4.00 - 5.21 x10(6)/[facility] Hemoglobin 11.1(L) 11.7 - 15.5 g/dL [facility] Hematocrit 36.8 35.7 - 45.8 % [facility] Mean Cell Volume 78.6(L) 82.6 - 94.4 fL [facility] Mean Cell Hemoglobin 23.7(L) 27.1 - 32.0 pg [facility] Mean Cell Hemoglobin Concentration 30.2(L) 31.7 - 35.0 g/dL [facility] Platelet 232 145 - 357 x10(3)/[facility] RDW Standard Deviation 78.3(H) 37.0 - 46.0 fL [facility] RDW coefficient of variation 29.0(H) 11.5 - 14.1 % [facility] Mean Platelet Volume Not Measured 7.6 - 12.9 fL [facility] NRBC% auto 0.0 % [facility] NRBC Absolute 0.000 0.000 - 0.000 x10(3)/ L [facility] Blood 09/20/2022 5:06 AM EDT 09/20/2022 5:29 AM EDT Narrative Resulting Agency Comment Spec In Lab Alan Hunt MD HEMATOLOGY ORDERABLE S Performing Organization Address City/[facility]/ZIP Co de Phone Number [facility] [place] [address] * (ABNORMAL) Basic Metabolic Panel (non-fasting) (09/20/2022 5:06 AM EDT) Glucose 206(H) 65 - 199 mg/dL [facility] Comment:Diabetes: >=200 mg/d L plus symptoms Blood Urea Nitrogen 23(H) 8 - 18 mg/dL [facility] Creatinine 0.50(L) 0.70 - 1.20 mg/dL [facility] Sodium 135 135 - 145 mmol/L [facility] Potassium 4.9 3.5 - 5.0 mmol/L [facility] Comment: Please note: ??Patients with WBC >100,000 may have falsely elevated Potassium levels. ??For accurate Potassium quantification in these patients send serum separator tube (gold top) for subsequent determinations. ??Contact the Clinical Chemistry Laboratory if there are any questions. Chloride 99 98 - 107 mmol/L [facility] Carbon Dioxide 26 22 - 31 mmol/L [facility] Anion Gap 10 5 - 15 mmol/L [facility] Calcium 9.6 8.5 - 10.5 mg/dL [facility] Est Glomerular Filtration Rate 106 >=60 mL/min/1. 73 m?? [facility] Comment: This patient's estimated GFR [...] Pascal MD CHEMISTRY ORDERABLES Performing Organization Address City/[facility]/ZIP Co de Phone Number [facility] [place] [address] * Phosphorus (09/20/2022 5:06 AM EDT) Phosphorus 3.5 2.5 - 4.5 mg/dL [facility] Blood 09/20/2022 5:06 AM EDT 09/20/2022 5:29 AM EDT Narrative Resulting Agency Comment Spec In Lab Richard Pascal MD CHEMISTRY ORDERABLES [facility] [place] [address] * Magnesium (09/20/2022 5:06 AM EDT) Magnesium 0.83 0.69 - 1.07 mmol/L [facility] Blood 09/20/2022 5:06 AM EDT 09/20/2022 5:29 AM EDT Narrative Resulting Agency Comment Spec In Lab Richard Pascal MD CHEMISTRY ORDERABLES Performing Organization Address [facility] Co de Phone Number [facility] [place] [address] * (ABNORMAL) POCT Glucose (09/19/2022 10:53 PM EDT) Glucose, POC 209(H) 65 - 199 mg/dL [facility] Comment: Supplemental ranges: <140 mg/dL before meals <180 mg/dL all other times of the day Blood 09/19/2022 10:5 3 PM EDT 09/19/2022 10:53 PM EDT Olamide Stallings MD POINT OF CARE TEST O RDERABLES [facility] [place] [address] * (ABNORMAL) POCT Glucose (09/19/2022 8:51 PM EDT) Glucose, POC 329(H) 65 - 199 mg/dL [facility] Comment: Supplemental ranges: <140 mg/dL before meals <180 mg/dL all other times of the day Blood 09/19/2022 8:51 PM EDT 09/19/2022 8:51 PM EDT Olamide Stallings MD POINT OF CARE TEST O RDERAREYMUNDO [facility] [place] [address] * (ABNORMAL) POCT Glucose (09/19/2022 7:57 PM EDT) Glucose, POC 275(H) 65 - 199 mg/dL [facility] Comment: Supplemental ranges: <140 mg/dL before meals <180 mg/dL all other times of the day Blood 09/19/2022 7:57 PM EDT 09/19/2022 7:57 PM EDT Olamide Stallings MD POINT OF CARE TEST O HUGHERAREYMUNDO Performing Organization Address [facility]/ZIP Co de Phone Number [facility] [place] [address] * (ABNORMAL) POCT Glucose (09/19/2022 4:02 PM EDT) Glucose, POC 221(H) 65 - 199 mg/dL [facility] Comment: Supplemental ranges: <140 mg/dL before meals <180 mg/dL all other times of the day Blood 09/19/2022 4:02 PM EDT 09/19/2022 4:02 PM EDT Olamide Stallings MD POINT OF CARE TEST O RDERAREYMUNDO Performing Organization Address City/[facility]/ZIP Co de Phone Number [facility] [place] [address] * POCT Glucose (09/19/2022 11:50 AM EDT) Glucose, POC 194 65 - 199 mg/dL [facility] Comment: Supplemental ranges: <140 mg/dL before meals <180 mg/dL all other times of the day Blood 09/19/2022 11:5 0 AM EDT 09/19/2022 11:50 AM EDT Olamide Stallings MD POINT OF CARE TEST O RDERABLES [facility] [place] [address] * (ABNORMAL) POCT Glucose (09/19/2022 6:45 AM EDT) Glucose, POC 219(H) 65 - 199 mg/dL [facility] Comment: Supplemental ranges: <140 mg/dL before meals <180 mg/dL all other times of the day Blood 09/19/2022 6:45 AM EDT 09/19/2022 6:45 AM EDT Alan Hunt MD POINT OF CARE TEST O GABRIELLA Performing Organization Address City/[facility] Co de Phone Number [facility] [place] [address] * (ABNORMAL) Basic Metabolic Panel (non-fasting) (09/19/2022 4:39 AM EDT) Glucose 194 65 - 199 mg/dL [facility] Comment:Diabetes: >=200 mg/d L plus symptoms Blood Urea Nitrogen 21(H) 8 - 18 mg/dL [facility] Creatinine 0.52(L) 0.70 - 1.20 mg/dL [facility] Sodium 134(L) 135 - 145 mmol/L [facility] Potassium 4.6 3.5 - 5.0 mmol/L [facility] Comment: Please note: ??Patients with WBC >100,000 may have falsely elevated Potassium levels. ??For accurate Potassium quantification in these patients send serum separator tube (gold top) for subsequent determinations. ??Contact the Clinical Chemistry Laboratory if there are any questions. Chloride 98 98 - 107 mmol/L [facility] Carbon Dioxide 27 22 - 31 mmol/L [facility] Anion Gap 9 5 - 15 mmol/L [facility] Calcium 9.3 8.5 - 10.5 mg/dL [facility] Est Glomerular Filtration Rate 105 >=60 mL/min/1. 73 m?? [facility] Comment: This patient's estimated GFR [...] Pascal MD CHEMISTRY ORDERABLES Performing Organization Address [facility] Co de Phone Number [facility] [place] [address] * Phosphorus (09/19/2022 4:39 AM EDT) Phosphorus 3.3 2.5 - 4.5 mg/dL [facility] Blood 09/19/2022 4:39 AM EDT 09/19/2022 4:51 AM EDT Narrative Resulting Agency Comment Spec In Lab Richard Pascal MD CHEMISTRY ORDERABLES Performing Organization Address City/[facility] Co de Phone Number [facility] [place] [address] * Magnesium (09/19/2022 4:39 AM EDT) Magnesium 0.82 0.69 - 1.07 mmol/L [facility] Blood 09/19/2022 4:39 AM EDT 09/19/2022 4:51 AM EDT Narrative Resulting Agency Comment Spec In Lab Richard Pascal MD CHEMISTRY ORDERABLES Performing Organization Address City/[facility]/ZIP Co de Phone Number [facility] [place] [address] * POCT Glucose (09/19/2022 3:49 AM EDT) Glucose, POC 184 65 - 199 mg/dL [facility] Comment: Supplemental ranges: <140 mg/dL before meals <180 mg/dL all other times of the day Blood 09/19/2022 3:49 AM EDT 09/19/2022 3:49 AM EDT Alan Hunt MD POINT OF CARE TEST O RDAV [facility] [place] [address] * POCT Glucose (09/18/2022 11:54 PM EDT) Glucose, POC 175 65 - 199 mg/dL [facility] Comment: Supplemental ranges: <140 mg/dL before meals <180 mg/dL all other times of the day Blood 09/18/2022 11:5 4 PM EDT 09/18/2022 11:54 PM EDT Alan Hunt MD POINT OF CARE TEST O GABRIELLA Performing Organization Address City/[facility]/ZIP Co de Phone Number [facility] [place] [address] * (ABNORMAL) POCT Glucose (09/18/2022 9:07 PM EDT) Glucose, POC 242(H) 65 - 199 mg/dL [facility] Comment: Supplemental ranges: <140 mg/dL before meals <180 mg/dL all other times of the day Blood 09/18/2022 9:07 PM EDT 09/18/2022 9:07 PM EDT Alan Hunt MD POINT OF CARE TEST O RDERAREYMUNDO [facility] [place] [address] * POCT Glucose (09/18/2022 4:32 PM EDT) Glucose, POC 175 65 - 199 mg/dL [facility] Comment: Supplemental ranges: <140 mg/dL before meals <180 mg/dL all other times of the day Blood 09/18/2022 4:32 PM EDT 09/18/2022 4:32 PM EDT Alan Hunt MD POINT OF CARE TEST O RDERABLES Performing Organization Address City/[facility] Co de Phone Number [facility] [place] [address] * POCT Glucose (09/18/2022 2:14 PM EDT) Glucose, POC 188 65 - 199 mg/dL [facility] Comment: Supplemental ranges: <140 mg/dL before meals <180 mg/dL all other times of the day Blood 09/18/2022 2:14 PM EDT 09/18/2022 2:14 PM EDT Alan Hunt MD POINT OF CARE TEST O RDERAREYMUNDO Performing Organization Address [facility] Co de Phone Number [facility] [place] [address] * (ABNORMAL) POCT Glucose (09/18/2022 11:45 AM EDT) Glucose, POC 247(H) 65 - 199 mg/dL [facility] Comment: Supplemental ranges: <140 mg/dL before meals <180 mg/dL all other times of the day Blood 09/18/2022 11:4 5 AM EDT 09/18/2022 11:45 AM EDT Alan Hunt MD POINT OF CARE TEST O RDERABLES Performing Organization Address City/[facility] Co de Phone Number [facility] [place] [address] * POCT Glucose (09/18/2022 6:47 AM EDT) Glucose, POC 197 65 - 199 mg/dL [facility] Comment: Supplemental ranges: <140 mg/dL before meals <180 mg/dL all other times of the day Blood 09/18/2022 6:47 AM EDT 09/18/2022 6:47 AM EDT Alan Hunt MD POINT OF CARE TEST O RDERABLES [facility] [place] [address] * (ABNORMAL) Basic Metabolic Panel (non-fasting) (09/18/2022 4:53 AM EDT) Glucose 197 65 - 199 mg/dL [facility] Comment:Diabetes: >=200 mg/d L plus symptoms Blood Urea Nitrogen 18 8 - 18 mg/dL [facility] Creatinine 0.53(L) 0.70 - 1.20 mg/dL [facility] Sodium 136 135 - 145 mmol/L [facility] Potassium 4.5 3.5 - 5.0 mmol/L [facility] Comment: Please note: ??Patients with WBC >100,000 may have falsely elevated Potassium levels. ??For accurate Potassium quantification in these patients send serum separator tube (gold top) for subsequent determinations. ??Contact the Clinical Chemistry Laboratory if there are any questions. Chloride 100 98 - 107 mmol/L [facility] Carbon Dioxide 27 22 - 31 mmol/L [facility] Anion Gap 9 5 - 15 mmol/L [facility] Calcium 9.5 8.5 - 10.5 mg/dL [facility] Est Glomerular Filtration Rate 105 >=60 mL/min/1. 73 m?? [facility] Comment: This patient's estimated GFR [...] Pascal MD CHEMISTRY ORDERABLES Performing Organization Address [facility] Co de Phone Number [facility] [place] [address] * Phosphorus (09/18/2022 4:53 AM EDT) Phosphorus 3.2 2.5 - 4.5 mg/dL [facility] Blood 09/18/2022 4:53 AM EDT 09/18/2022 5:46 AM EDT Narrative Resulting Agency Comment Spec In Lab Richard Pascal MD CHEMISTRY ORDERABLES Performing Organization Address [facility] de Phone Number [facility] [place] [address] * Magnesium (09/18/2022 4:53 AM EDT) Magnesium 0.79 0.69 - 1.07 mmol/L [facility] Blood 09/18/2022 4:53 AM EDT 09/18/2022 5:46 AM EDT Narrative Resulting Agency Comment Spec In Lab Richard Pascal MD CHEMISTRY ORDERABLES Performing Organization Address [facility] Co de Phone Number [facility] [place] [address] * POCT Glucose (09/18/2022 4:06 AM EDT) Glucose, POC 159 65 - 199 mg/dL [facility] Comment: Supplemental ranges: <140 mg/dL before meals <180 mg/dL all other times of the day Blood 09/18/2022 4:06 AM EDT 09/18/2022 4:06 AM EDT Alan Hunt MD POINT OF CARE TEST O RDERABLES Performing Organization Address City/[facility] Co de Phone Number [facility] [place] [address] * POCT Glucose (09/17/2022 11:02 PM EDT) Glucose, POC 141 65 - 199 mg/dL [facility] Comment: Supplemental ranges: <140 mg/dL before meals <180 mg/dL all other times of the day Blood 09/17/2022 11:0 2 PM EDT 09/17/2022 11:02 PM EDT Alan Hunt MD POINT OF CARE TEST O RDAV [facility] [place] [address] * (ABNORMAL) POCT Glucose (09/17/2022 9:14 PM EDT) Glucose, POC 201(H) 65 - 199 mg/dL [facility] Comment: Supplemental ranges: <140 mg/dL before meals <180 mg/dL all other times of the day Blood 09/17/2022 9:14 PM EDT 09/17/2022 9:14 PM EDT Alan Hunt MD POINT OF CARE TEST O GABRIELLA [facility] [place] [address] * POCT Glucose (09/17/2022 4:14 PM EDT) Glucose, POC 173 65 - 199 mg/dL [facility] Comment: Supplemental ranges: <140 mg/dL before meals <180 mg/dL all other times of the day Blood 09/17/2022 4:14 PM EDT 09/17/2022 4:14 PM EDT Alan Hunt MD POINT OF CARE TEST O RDERAREYMUNDO [facility] [place] [address] * POCT Glucose (09/17/2022 11:34 AM EDT) Glucose, POC 181 65 - 199 mg/dL [facility] Comment: Supplemental ranges: <140 mg/dL before meals <180 mg/dL all other times of the day Blood 09/17/2022 11:3 4 AM EDT 09/17/2022 11:34 AM EDT Alan Hunt MD POINT OF CARE TEST O GABRIELLA Performing Organization Address City/[facility] Co de Phone Number [facility] [place] [address] * POCT Glucose (09/17/2022 6:57 AM EDT) Glucose, POC 146 65 - 199 mg/dL [facility] Comment: Supplemental ranges: <140 mg/dL before meals <180 mg/dL all other times of the day Blood 09/17/2022 6:57 AM EDT 09/17/2022 6:57 AM EDT Alan Hunt MD POINT OF CARE TEST O GABRIELLA Performing Organization Address [facility] Co de Phone Number [facility] [place] [address] * POCT Glucose (09/17/2022 3:07 AM EDT) Glucose, POC 149 65 - 199 mg/dL [facility] Comment: Supplemental ranges: <140 mg/dL before meals <180 mg/dL all other times of the day Blood 09/17/2022 3:07 AM EDT 09/17/2022 3:07 AM EDT Alan Hunt MD POINT OF CARE TEST O GABRIELLA Performing Organization Address City/[facility] Co de Phone Number [facility] [place] [address] * POCT Glucose (09/17/2022 12:59 AM EDT) Glucose, POC 174 65 - 199 mg/dL [facility] Comment: Supplemental ranges: <140 mg/dL before meals <180 mg/dL all other times of the day Blood 09/17/2022 12:5 9 AM EDT 09/17/2022 12:59 AM EDT Alan Hunt MD POINT OF CARE TEST O RDERAREYMUNDO [facility] [place] [address] * POCT Glucose (09/16/2022 8:03 PM EDT) Glucose, POC 139 65 - 199 mg/dL [facility] Comment: Supplemental ranges: <140 mg/dL before meals <180 mg/dL all other times of the day Blood 09/16/2022 8:03 PM EDT 09/16/2022 8:03 PM EDT Alan Hunt MD POINT OF CARE TEST O HUGHERAREYMUNDO Performing Organization Address City/[facility]/ZIP Co de Phone Number [facility] [place] [address] * POCT Glucose (09/16/2022 4:22 PM EDT) Glucose, POC 155 65 - 199 mg/dL [facility] Comment: Supplemental ranges: <140 mg/dL before meals <180 mg/dL all other times of the day Blood 09/16/2022 4:22 PM EDT 09/16/2022 4:22 PM EDT Alan Hunt MD POINT OF CARE TEST O RDERAREYMUNDO [facility] [place] [address] * POCT Glucose (09/16/2022 11:21 AM EDT) Glucose, POC 170 65 - 199 mg/dL [facility] Comment: Supplemental ranges: <140 mg/dL before meals <180 mg/dL all other times of the day Blood 09/16/2022 11:2 1 AM EDT 09/16/2022 11:21 AM EDT Alan Hunt MD POINT OF CARE TEST O RDERABLES Performing Organization Address City/[facility]/ZIP Co de Phone Number [facility] [place] [address] * POCT Glucose (09/16/2022 6:33 AM EDT) Glucose, POC 111 65 - 199 mg/dL [facility] Comment: Supplemental ranges: <140 mg/dL before meals <180 mg/dL all other times of the day Blood 09/16/2022 6:33 AM EDT 09/16/2022 6:33 AM EDT Baljai Mayer MD POINT OF CARE TEST O HUGHERAREYMUNDO Performing Organization Address [facility] Co de Phone Number [facility] [place] [address] * (ABNORMAL) Differential, Automated (09/16/2022 3:08 AM EDT) Neutrophil % 54.3 % [facility] Neutrophil Absolute 3.63 1.70 - 6.10 x10(3)/mc L [facility] Lymph % 28.2 % [facility] Lymphocytes Abs 1.9 0.9 - 3.2 x10(3)/mc L [facility] Monocyte % 12.4 % [facility] Monocyte Abs 0.8 0.3 - 0.9 x10(3)/mc L [facility] Eos % 2.8 % [facility] Eosinophils Abs 0.2 0.0 - 0.4 x10(3)/mc L [facility] Basophil % 1.3 % [facility] Baso Absolute 0.1 0.0 - 0.1 x10(3)/mc L [facility] Immature Gran % 1.00 % [facility] Comment: Immature granulocytes(IG's)percentage and absolute count will include metamyelocytes, myelocytes, and promyelocytes. Blood smears from CBCs yielding IG's will be scanned manually for concordance. If this scan disagrees with the automated IG or if promyelocytes are noted, a manual differential will be performed. Immature Gran Absolute 0.07(H) 0.00 - 0.04 x10(3)/ L [facility] Blood 09/16/2022 3:08 AM EDT 09/16/2022 3:12 AM EDT Narrative Resulting Agency Comment Spec In Lab Jigar Streeter MD HEMATOLOGY ORDERABLE S Performing Organization Address City/[facility]/ZIP Co de Phone Number [facility] [place] [address] * (ABNORMAL) Hemogram (09/16/2022 3:08 AM EDT) White Blood Cell 6.7 4.0 - 9.5 x10(3)/[facility] Red Blood Cell 4.64 4.00 - 5.21 x10(6)/[facility] Hemoglobin 10.7(L) 11.7 - 15.5 g/dL [facility] Hematocrit 35.6(L) 35.7 - 45.8 % [facility] Mean Cell Volume 76.7(L) 82.6 - 94.4 fL [facility] Mean Cell Hemoglobin 23.1(L) 27.1 - 32.0 pg [facility] Mean Cell Hemoglobin Concentration 30.1(L) 31.7 - 35.0 g/dL [facility] Platelet 242 145 - 357 x10(3)/[facility] RDW Standard Deviation 74.3(H) 37.0 - 46.0 fL [facility] RDW coefficient of variation 28.6(H) 11.5 - 14.1 % [facility] Mean Platelet Volume 9.8 7.6 - 12.9 fL [facility] NRBC% auto 0.0 % [facility] NRBC Absolute 0.000 0.000 - 0.000 x10(3)/[facility] Blood 09/16/2022 3:08 AM EDT 09/16/2022 3:12 AM EDT Narrative Resulting Agency Comment Spec In Lab Jigar Streeter MD HEMATOLOGY ORDERABLE S Performing Organization Address City/[facility]/ZIP Co de Phone Number [facility] [place] [address] * Phosphorus (09/16/2022 3:08 AM EDT) Phosphorus 3.0 2.5 - 4.5 mg/dL [facility] Blood 09/16/2022 3:08 AM EDT 09/16/2022 3:12 AM EDT Narrative Resulting Agency Comment Spec In Lab Richard Pascal MD CHEMISTRY ORDERABLES Performing Organization Address [facility] Co de Phone Number [facility] [place] [address] * Magnesium (09/16/2022 3:08 AM EDT) Magnesium 0.80 0.69 - 1.07 mmol/L [facility] Blood 09/16/2022 3:08 AM EDT 09/16/2022 3:12 AM EDT Narrative Resulting Agency Comment Spec In Lab Richard Pascal MD CHEMISTRY ORDERABLES Performing Organization Address [facility] Co de Phone Number [facility] [place] [address] * (ABNORMAL) Basic Metabolic Panel (non-fasting) (09/16/2022 3:08 AM EDT) Glucose 161 65 - 199 mg/dL [facility] Comment:Diabetes: >=200 mg/d L plus symptoms Blood Urea Nitrogen 15 8 - 18 mg/dL [facility] Creatinine 0.47(L) 0.70 - 1.20 mg/dL [facility] Sodium 140 135 - 145 mmol/L [facility] Potassium 4.0 3.5 - 5.0 mmol/L [facility] Comment: Please note: ??Patients with WBC >100,000 may have falsely elevated Potassium levels. ??For accurate Potassium quantification in these patients send serum separator tube (gold top) for subsequent determinations. ??Contact the Clinical Chemistry Laboratory if there are any questions. Chloride 103 98 - 107 mmol/L [facility] Carbon Dioxide 29 22 - 31 mmol/L [facility] Anion Gap 8 5 - 15 mmol/L [facility] Calcium 9.4 8.5 - 10.5 mg/dL [facility] Est Glomerular Filtration Rate 108 >=60 mL/min/1. 73 m?? [facility] Comment: This patient's estimated GFR [...] In Lab Richard Pascal MD CHEMISTRY ORDERABLES [facility] [place] [address] * POCT Glucose (09/16/2022 2:59 AM EDT) Glucose, POC 157 65 - 199 mg/dL [facility] Comment: Supplemental ranges: <140 mg/dL before meals <180 mg/dL all other times of the day Blood 09/16/2022 2:59 AM EDT 09/16/2022 2:59 AM EDT Balaji Mayer MD POINT OF CARE TEST O RDERABLES [facility] [place] [address] * POCT Glucose (09/15/2022 11:15 PM EDT) Glucose, POC 169 65 - 199 mg/dL [facility] Comment: Supplemental ranges: <140 mg/dL before meals <180 mg/dL all other times of the day Blood 09/15/2022 11:1 5 PM EDT 09/15/2022 11:15 PM EDT Balaji Mayer MD POINT OF CARE TEST O RDERABLES Performing Organization Address [facility] Co de Phone Number [facility] [place] [address] * POCT Glucose (09/15/2022 7:17 PM EDT) Glucose, POC 153 65 - 199 mg/dL [facility] Comment: Supplemental ranges: <140 mg/dL before meals <180 mg/dL all other times of the day Blood 09/15/2022 7:17 PM EDT 09/15/2022 7:17 PM EDT Balaji Mayer MD POINT OF CARE TEST O RDERABLES Performing Organization Address [facility] Co de Phone Number [facility] [place] [address] * POCT Glucose (09/15/2022 3:46 PM EDT) Glucose, POC 136 65 - 199 mg/dL [facility] Comment: Supplemental ranges: <140 mg/dL before meals <180 mg/dL all other times of the day Blood 09/15/2022 3:46 PM EDT 09/15/2022 3:46 PM EDT Balaji Mayer MD POINT OF CARE TEST O RDERABLES Performing Organization Address [facility] Co de Phone Number [facility] [place] [address] * POCT Glucose (09/15/2022 11:15 AM EDT) Glucose, POC 133 65 - 199 mg/dL [facility] Comment: Supplemental ranges: <140 mg/dL before meals <180 mg/dL all other times of the day Blood 09/15/2022 11:1 5 AM EDT 09/15/2022 11:15 AM EDT Balaji Mayer MD POINT OF CARE TEST O RDERAREYMUNDO Performing Organization Address City/[facility]/ZIP Co de Phone Number [facility] [place] [address] * POCT Glucose (09/15/2022 6:30 AM EDT) Glucose, POC 95 65 - 199 mg/dL [facility] Comment: Supplemental ranges: <140 mg/dL before meals <180 mg/dL all other times of the day Blood 09/15/2022 6:30 AM EDT 09/15/2022 6:30 AM EDT Balaji Mayer MD POINT OF CARE TEST O RDERAREYMUNDO Performing Organization Address [facility] Co de Phone Number [facility] [place] [address] * (ABNORMAL) Differential, Automated (09/15/2022 3:00 AM EDT) [facility] Neutrophil % 46.9 % [facility] Neutrophil Absolute 2.78 1.70 - 6.10 x10(3)/mc L [facility] Lymph % 34.9 % [facility] Lymphocytes Abs 2.1 0.9 - 3.2 x10(3)/mc L [facility] Monocyte % 12.1 % [facility] Monocyte Abs 0.7 0.3 - 0.9 x10(3)/mc L [facility] Eos % 3.7 % [facility] Eosinophils Abs 0.2 0.0 - 0.4 x10(3)/ L [facility] Basophil % 1.2 % [facility] Baso Absolute 0.1 0.0 - 0.1 x10(3)/mc L [facility] Immature Gran % 1.20 % [facility] Comment: Immature granulocytes(IG's)percentage and absolute count will include metamyelocytes, myelocytes, and promyelocytes. Blood smears from CBCs yielding IG's will be scanned manually for concordance. If this scan disagrees with the automated IG or if promyelocytes are noted, a manual differential will be performed. Immature Gran Absolute 0.07(H) 0.00 - 0.04 x10(3)/mc L [facility] Blood 09/15/2022 3:00 AM EDT 09/15/2022 3:07 AM EDT Narrative Resulting Agency Comment Spec In Lab Jigar Streeter MD HEMATOLOGY ORDERABLE S Performing Organization Address City/[facility]/ZIP Co de Phone Number [facility] [place] [address] * (ABNORMAL) Hemogram (09/15/2022 3:00 AM EDT) White Blood Cell 5.9 4.0 - 9.5 x10(3)/[facility]AT[facility] Red Blood Cell 4.43 4.00 - 5.21 x10(6)/[facility] Hemoglobin 10.2(L) 11.7 - 15.5 g/dL [facility] Hematocrit 34.4(L) 35.7 - 45.8 % [facility] Mean Cell Volume 77.7(L) 82.6 - 94.4 fL [facility] Mean Cell Hemoglobin 23.0(L) 27.1 - 32.0 pg [facility] Mean Cell Hemoglobin Concentration 29.7(L) 31.7 - 35.0 g/dL [facility] Platelet 252 145 - 357 x10(3)/ L [facility] RDW Standard Deviation 76.5(H) 37.0 - 46.0 fL [facility] RDW coefficient of variation 29.1(H) 11.5 - 14.1 % [facility] Mean Platelet Volume 9.7 7.6 - 12.9 fL [facility] NRBC% auto 0.0 % [facility] NRBC Absolute 0.000 0.000 - 0.000 x10(3)/mc L [facility] Blood 09/15/2022 3:00 AM EDT 09/15/2022 3:07 AM EDT Narrative Resulting Agency Comment Spec In Lab Jigar Streeter MD HEMATOLOGY ORDERABLE S Performing Organization Address City/[facility]/ZIP Co de Phone Number [facility] [place] [address] * Phosphorus (09/15/2022 3:00 AM EDT) Phosphorus 2.6 2.5 - 4.5 mg/dL [facility] Blood 09/15/2022 3:00 AM EDT 09/15/2022 3:07 AM EDT Narrative Resulting Agency Comment Spec In Lab Richard Pascal MD CHEMISTRY ORDERABLES Performing Organization Address City/[facility]/ZIP Co de Phone Number [facility] [place] [address] * Magnesium (09/15/2022 3:00 AM EDT) Magnesium 0.77 0.69 - 1.07 mmol/L [facility] Blood 09/15/2022 3:00 AM EDT 09/15/2022 3:07 AM EDT Narrative Resulting Agency Comment Spec In Lab Richard Pascal MD CHEMISTRY ORDERABLES Performing Organization Address [facility] Co de Phone Number [facility] [place] [address] * (ABNORMAL) Basic Metabolic Panel (non-fasting) (09/15/2022 3:00 AM EDT) Glucose 121 65 - 199 mg/dL [facility] Comment:Diabetes: >=200 mg/d L plus symptoms Blood Urea Nitrogen 11 8 - 18 mg/dL [facility] Creatinine 0.44(L) 0.70 - 1.20 mg/dL [facility] Sodium 140 135 - 145 mmol/L [facility] Potassium 4.0 3.5 - 5.0 mmol/L [facility] Comment: Please note: ??Patients with WBC >100,000 may have falsely elevated Potassium levels. ??For accurate Potassium quantification in these patients send serum separator tube (gold top) for subsequent determinations. ??Contact the Clinical Chemistry Laboratory if there are any questions. Chloride 102 98 - 107 mmol/L [facility] Carbon Dioxide 27 22 - 31 mmol/L [facility] Anion Gap 11 5 - 15 mmol/L [facility] Calcium 9.2 8.5 - 10.5 mg/dL [facility] Est Glomerular Filtration Rate 109 >=60 mL/min/1. 73 m?? [facility] Comment: This patient's estimated GFR [...] Pascal MD CHEMISTRY ORDERABLES Performing Organization Address [facility] Co de Phone Number [facility] [place] [address] * POCT Glucose (09/15/2022 2:58 AM EDT) Glucose, POC 114 65 - 199 mg/dL [facility] Comment: Supplemental ranges: <140 mg/dL before meals <180 mg/dL all other times of the day Blood 09/15/2022 2:58 AM EDT 09/15/2022 2:58 AM EDT Balaji Mayer MD POINT OF CARE TEST O RDERABLES [facility] [place] [address] * POCT Glucose (09/14/2022 11:29 PM EDT) Glucose, POC 124 65 - 199 mg/dL [facility] Comment: Supplemental ranges: <140 mg/dL before meals <180 mg/dL all other times of the day Blood 09/14/2022 11:2 9 PM EDT 09/14/2022 11:29 PM EDT Balaji Mayer MD POINT OF CARE TEST O RDERABLES [facility] [place] [address] * XR Hip 2-3 Views Left (09/14/2022 [...] who have questions please contact the health infant childcare provider that requested your imaging first. ? Narrative [...] patients who have questions please contactthe health infant childcare provider that requested your imaging first. Balaji Mayer MD IMG DX ORDERABLES * POCT Glucose (09/14/2022 7:22 PM EDT) Glucose, POC 120 65 - 199 mg/dL [facility] Comment: Supplemental ranges: <140 mg/dL before meals <180 mg/dL all other times of the day Blood 09/14/2022 7:22 PM EDT 09/14/2022 7:22 PM EDT Balaji Mayer MD POINT OF CARE TEST O RDERABLES [facility] [place] [address] * POCT Glucose (09/14/2022 3:38 PM EDT) Glucose, POC 132 65 - 199 mg/dL [facility] Comment: Supplemental ranges: <140 mg/dL before meals <180 mg/dL all other times of the day Blood 09/14/2022 3:38 PM EDT 09/14/2022 3:38 PM EDT Balaji Mayer MD POINT OF CARE TEST O RDERAREYMUNDO Performing Organization Address [facility] Co de Phone Number [facility] [place] [address] * POCT Glucose (09/14/2022 11:01 AM EDT) Glucose, POC 128 65 - 199 mg/dL [facility] Comment: Supplemental ranges: <140 mg/dL before meals <180 mg/dL all other times of the day Blood 09/14/2022 11:0 1 AM EDT 09/14/2022 11:01 AM EDT Balaji Mayer MD POINT OF CARE TEST O GABRIELLA Performing Organization Address [facility] de Phone Number [facility] [place] [address] * POCT Glucose (09/14/2022 6:33 AM EDT) Glucose, POC 94 65 - 199 mg/dL [facility] Comment: Supplemental ranges: <140 mg/dL before meals <180 mg/dL all other times of the day Blood 09/14/2022 6:33 AM EDT 09/14/2022 6:33 AM EDT Chong Chao MD POINT OF CARE TEST O RDERAREYMUNDO Performing Organization Address [facility] de Phone Number [facility] [place] [address] * (ABNORMAL) Differential, Automated (09/14/2022 3:33 AM EDT) Neutrophil % 49.0 % [facility] Neutrophil Absolute 2.69 1.70 - 6.10 x10(3)/mc L [facility] Lymph % 32.4 % [facility] Lymphocytes Abs 1.8 0.9 - 3.2 x10(3)/ L [facility] Monocyte % 12.4 % [facility] Monocyte Abs 0.7 0.3 - 0.9 x10(3)/ L [facility] Eos % 4.2 % [facility] Eosinophils Abs 0.2 0.0 - 0.4 x10(3)/[facility] Basophil % 1.1 % [facility] Baso Absolute 0.1 0.0 - 0.1 x10(3)/ L [facility] Immature Gran % 0.90 % [facility] Comment: Immature granulocytes(IG's)percentage and absolute count will include metamyelocytes, myelocytes, and promyelocytes. Blood smears from CBCs yielding IG's will be scanned manually for concordance. If this scan disagrees with the automated IG or if promyelocytes are noted, a manual differential will be performed. Immature Gran Absolute 0.05(H) 0.00 - 0.04 x10(3)/ L [facility] Blood 09/14/2022 3:33 AM EDT 09/14/2022 5:07 AM EDT Narrative Resulting Agency Comment Spec In Lab Jigar Streeter MD HEMATOLOGY ORDERABLE S Performing Organization Address City/State/[facility] Co de Phone Number [facility] [place] [address] * (ABNORMAL) Hemogram (09/14/2022 3:33 AM EDT) White Blood Cell 5.5 4.0 - 9.5 x10(3)/ L [facility] Red Blood Cell 4.39 4.00 - 5.21 x10(6)/[facility] Hemoglobin 10.1(L) 11.7 - 15.5 g/dL [facility] Hematocrit 33.7(L) 35.7 - 45.8 % [facility] Mean Cell Volume 76.8(L) 82.6 - 94.4 fL [facility] Mean Cell Hemoglobin 23.0(L) 27.1 - 32.0 pg [facility] Mean Cell Hemoglobin Concentration 30.0(L) 31.7 - 35.0 g/dL [facility] Platelet 246 145 - 357 x10(3)/mc L [facility] RDW Standard Deviation 76.3(H) 37.0 - 46.0 fL [facility] RDW coefficient of variation 29.2(H) 11.5 - 14.1 % [facility] Mean Platelet Volume 10.2 7.6 - 12.9 fL [facility] NRBC% auto 0.0 % [facility] NRBC Absolute 0.000 0.000 - 0.000 x10(3)/mc L [facility] Blood 09/14/2022 3:33 AM EDT 09/14/2022 5:07 AM EDT Narrative Resulting Agency Comment Spec In Lab Jigar Streeter MD HEMATOLOGY ORDERABLE S Performing Organization Address [facility] [place] [address] * Phosphorus (09/14/2022 3:33 AM EDT) Phosphorus 2.9 2.5 - 4.5 mg/dL [facility] Blood 09/14/2022 3:33 AM EDT 09/14/2022 5:07 AM EDT Narrative Resulting Agency Comment Spec In Lab Richard Pascal MD CHEMISTRY ORDERABLES Performing Organization Address [facility] Co de Phone Number [facility] [place] [address] * Magnesium (09/14/2022 3:33 AM EDT) Magnesium 0.74 0.69 - 1.07 mmol/L [facility] Blood 09/14/2022 3:33 AM EDT 09/14/2022 5:07 AM EDT Narrative Resulting Agency Comment Spec In Lab Richard Pascal MD CHEMISTRY ORDERABLES Performing Organization Address City/[facility] Co de Phone Number [facility] [place] [address] * (ABNORMAL) Basic Metabolic Panel (non-fasting) (09/14/2022 3:33 AM EDT) Glucose Not Perf 65 - 199 [facility] Comment: Sample improperly processed prior to receipt. Diabetes: >=200 mg/dL plus symptoms Blood Urea Nitrogen 10 8 - 18 mg/dL [facility] Creatinine 0.45(L) 0.70 - 1.20 mg/dL [facility] Sodium 140 135 - 145 mmol/L [facility] Potassium 4.1 3.5 - 5.0 mmol/L [facility] Comment: Please note: ??Patients with WBC >100,000 may have falsely elevated Potassium levels. ??For accurate Potassium quantification in these patients send serum separator tube (gold top) for subsequent determinations. ??Contact the Clinical Chemistry Laboratory if there are any questions. Chloride 102 98 - 107 mmol/L [facility] Carbon Dioxide 28 22 - 31 mmol/L [facility] Anion Gap 10 5 - 15 mmol/L [facility] Calcium 9.1 8.5 - 10.5 mg/dL [facility] Est Glomerular Filtration Rate 109 >=60 mL/min/1. 73 m?? [facility] Comment: This patient's estimated GFR [...] In Lab Richard Pascal MD CHEMISTRY ORDERABLES [facility] [place] [address] * POCT Glucose (09/14/2022 3:29 AM EDT) Glucose, POC 109 65 - 199 mg/dL [facility] Comment: Supplemental ranges: <140 mg/dL before meals <180 mg/dL all other times of the day Blood 09/14/2022 3:29 AM EDT 09/14/2022 3:29 AM EDT Chong Chao MD POINT OF CARE TEST O GABRIELLA Performing Organization Address City/[facility] Co de Phone Number [facility] [place] [address] * POCT Glucose (09/13/2022 11:30 PM EDT) Glucose, POC 147 65 - 199 mg/dL [facility] Comment: Supplemental ranges: <140 mg/dL before meals <180 mg/dL all other times of the day Blood 09/13/2022 11:3 0 PM EDT 09/13/2022 11:30 PM EDT Chong Chao MD POINT OF CARE TEST O HUGHERAREYMUNDO Performing Organization Address [facility] Co de Phone Number [facility] [place] [address] * POCT Glucose (09/13/2022 7:24 PM EDT) Glucose, POC 149 65 - 199 mg/dL [facility] Comment: Supplemental ranges: <140 mg/dL before meals <180 mg/dL all other times of the day Blood 09/13/2022 7:24 PM EDT 09/13/2022 7:24 PM EDT Chong Chao MD POINT OF CARE TEST O GABRIELLA Performing Organization Address City/[facility] Co de Phone Number [facility] [place] [address] * POCT Glucose (09/13/2022 3:40 PM EDT) Glucose, POC 126 65 - 199 mg/dL [facility] Comment: Supplemental ranges: <140 mg/dL before meals <180 mg/dL all other times of the day Blood 09/13/2022 3:40 PM EDT 09/13/2022 3:40 PM EDT Chong Chao MD POINT OF CARE TEST O RDERABLES [facility] [place] [address] * (ABNORMAL) Basic Metabolic Panel (non-fasting) (09/13/2022 12:38 PM EDT) Glucose 115 65 - 199 mg/dL [facility] Comment:Diabetes: >=200 mg/d L plus symptoms Blood Urea Nitrogen 8 8 - 18 mg/dL [facility] Creatinine 0.50(L) 0.70 - 1.20 mg/dL [facility] Sodium 140 135 - 145 mmol/L [facility] Potassium 3.8 3.5 - 5.0 mmol/L [facility] Comment: Please note: ??Patients with WBC >100,000 may have falsely elevated Potassium levels. ??For accurate Potassium quantification in these patients send serum separator tube (gold top) for subsequent determinations. ??Contact the Clinical Chemistry Laboratory if there are any questions. Chloride 101 98 - 107 mmol/L [facility] Carbon Dioxide 26 22 - 31 mmol/L [facility] Anion Gap 13 5 - 15 mmol/L [facility] Calcium 9.1 8.5 - 10.5 mg/dL [facility] Est Glomerular Filtration Rate 106 >=60 mL/min/1. 73 m?? [facility] Comment: This patient's estimated GFR [...] Pascal MD CHEMISTRY ORDERABLES Performing Organization Address [facility] Co de Phone Number [facility] [place] [address] * POCT Glucose (09/13/2022 12:08 PM EDT) Glucose, POC 113 65 - 199 mg/dL [facility] Comment: Supplemental ranges: <140 mg/dL before meals <180 mg/dL all other times of the day Blood 09/13/2022 12:0 8 PM EDT 09/13/2022 12:08 PM EDT Chong Chao MD POINT OF CARE TEST O RDERABLES Performing Organization Address [facility] Co de Phone Number [facility] [place] [address] * POCT Glucose (09/13/2022 6:31 AM EDT) Glucose, POC 87 65 - 199 mg/dL [facility] Comment: Supplemental ranges: <140 mg/dL before meals <180 mg/dL all other times of the day Blood 09/13/2022 6:31 AM EDT 09/13/2022 6:31 AM EDT Chong Chao MD POINT OF CARE TEST O RDERAREYMUNDO Performing Organization Address [facility] Co de Phone Number [facility] [place] [address] * POCT Glucose (09/13/2022 3:16 AM EDT) Glucose, POC 90 65 - 199 mg/dL [facility] Comment: Supplemental ranges: <140 mg/dL before meals <180 mg/dL all other times of the day Blood 09/13/2022 3:16 AM EDT 09/13/2022 3:16 AM EDT Chong Chao MD POINT [place] [address] * (ABNORMAL) Differential, Automated (09/13/2022 3:15 AM EDT) Neutrophil % 44.0 % [facility] Neutrophil Absolute 2.31 1.70 - 6.10 x10(3)/ L [facility] Lymph % 39.0 % [facility] Lymphocytes Abs 2.0 0.9 - 3.2 x10(3)/mc L [facility] Monocyte % 10.7 % [facility] Monocyte Abs 0.6 0.3 - 0.9 x10(3)/[facility] Eos % 3.8 % [facility] Eosinophils Abs 0.2 0.0 - 0.4 x10(3)/[facility] Basophil % 1.5 % [facility] Baso Absolute 0.1 0.0 - 0.1 x10(3)/ L [facility] Immature Gran % 1.00 % [facility] Comment: Immature granulocytes(IG's)percentage and absolute count will include metamyelocytes, myelocytes, and promyelocytes. Blood smears from CBCs yielding IG's will be scanned manually for concordance. If this scan disagrees with the automated IG or if promyelocytes are noted, a manual differential will be performed. Immature Gran Absolute 0.05(H) 0.00 - 0.04 x10(3)/ L [facility] Blood 09/13/2022 3:15 AM EDT 09/13/2022 3:27 AM EDT Narrative Resulting Agency Comment Spec In Lab Jigar Streeter MD HEMATOLOGY ORDERABLE S Performing Organization Address City/[facility]/[place] [address] * (ABNORMAL) Hemogram (09/13/2022 3:15 AM EDT) White Blood Cell 5.2 4.0 - 9.5 x10(3)/ L [facility] Red Blood Cell 3.99(L) 4.00 - 5.21 x10(6)/mc L [facility] Hemoglobin 9.2(L) 11.7 - 15.5 g/dL [facility] Hematocrit 30.9(L) 35.7 - 45.8 % [facility] Mean Cell Volume 77.4(L) 82.6 - 94.4 fL [facility] Mean Cell Hemoglobin 23.1(L) 27.1 - 32.0 pg [facility] Mean Cell Hemoglobin Concentration 29.8(L) 31.7 - 35.0 g/dL [facility] Platelet 239 145 - 357 x10(3)/mc L [facility] RDW Standard Deviation 78.1(H) 37.0 - 46.0 fL [facility] RDW coefficient of variation 29.6(H) 11.5 - 14.1 % [facility] Mean Platelet Volume 9.8 7.6 - 12.9 fL [facility] NRBC% auto 0.0 % [facility] NRBC Absolute 0.000 0.000 - 0.000 x10(3)/mc L [facility] Blood 09/13/2022 3:15 AM EDT 09/13/2022 3:27 AM EDT Narrative Resulting Agency Comment Spec In Lab Jigar Streeter MD HEMATOLOGY ORDERABLE S [facility] [place] [address] * Phosphorus (09/13/2022 3:15 AM EDT) Phosphorus 3.0 2.5 - 4.5 mg/dL [facility] Blood 09/13/2022 3:15 AM EDT 09/13/2022 3:27 AM EDT Narrative Resulting Agency Comment Spec In Lab Richard Pascal MD CHEMISTRY ORDERABLES [facility] [place] [address] * Magnesium (09/13/2022 3:15 AM EDT) Magnesium 0.78 0.69 - 1.07 mmol/L [facility] Blood 09/13/2022 3:15 AM EDT 09/13/2022 3:27 AM EDT Narrative Resulting Agency Comment Spec In Lab Richard Pascal MD CHEMISTRY ORDERABLES [facility] [place] [address] * (ABNORMAL) Basic Metabolic Panel (non-fasting) (09/13/2022 3:15 AM EDT) Glucose 87 65 - 199 mg/dL [facility] Comment:Diabetes: >=200 mg/d L plus symptoms Blood Urea Nitrogen 8 8 - 18 mg/dL [facility] Creatinine 0.52(L) 0.70 - 1.20 mg/dL [facility] Sodium 141 135 - 145 mmol/L [facility] Potassium 3.6 3.5 - 5.0 mmol/L [facility] Comment: Please note: ??Patients with WBC >100,000 may have falsely elevated Potassium levels. ??For accurate Potassium quantification in these patients send serum separator tube (gold top) for subsequent determinations. ??Contact the Clinical Chemistry Laboratory if there are any questions. Chloride 103 98 - 107 mmol/L [facility] Carbon Dioxide 29 22 - 31 mmol/L [facility] Anion Gap 9 5 - 15 mmol/L [facility] Calcium 8.8 8.5 - 10.5 mg/dL [facility] Est Glomerular Filtration Rate 105 >=60 mL/min/1. 73 m?? [facility] Comment: This patient's estimated GFR [...] MD CHEMISTRY ORDERABL ES Performing Organization Address [facility] Co de Phone Number [facility] [place] [address] * POCT Glucose (09/12/2022 11:29 PM EDT) Glucose, POC 105 65 - 199 mg/dL [facility] Comment: Supplemental ranges: <140 mg/dL before meals <180 mg/dL all other times of the day Blood 09/12/2022 11:2 9 PM EDT 09/12/2022 11:29 PM EDT Chong Chao MD POINT OF CARE TEST O RDERABLES Performing Organization Address [facility] Co de Phone Number [facility] [place] [address] * POCT Glucose (09/12/2022 7:24 PM EDT) Glucose, POC 121 65 - 199 mg/dL [facility] Comment: Supplemental ranges: <140 mg/dL before meals <180 mg/dL all other times of the day Blood 09/12/2022 7:24 PM EDT 09/12/2022 7:24 PM EDT Chong Chao MD POINT OF CARE TEST O RDERAREYMUNDO Performing Organization Address [facility] Co de Phone Number [facility] [place] [address] * (ABNORMAL) Basic Metabolic Panel (non-fasting) (09/12/2022 3:40 PM EDT) Glucose 103 65 - 199 mg/dL [facility] Comment:Diabetes: >=200 mg/d L plus symptoms Blood Urea Nitrogen 7(L) 8 - 18 mg/dL [facility] Creatinine 0.53(L) 0.70 - 1.20 mg/dL [facility] Sodium 140 135 - 145 mmol/L [facility] Potassium 4.0 3.5 - 5.0 mmol/L [facility] Comment: Please note: ??Patients with WBC >100,000 may have falsely elevated Potassium levels. ??For accurate Potassium quantification in these patients send serum separator tube (gold top) for subsequent determinations. ??Contact the Clinical Chemistry Laboratory if there are any questions. Chloride 102 98 - 107 mmol/L [facility] Carbon Dioxide 24 22 - 31 mmol/L [facility] Anion Gap 14 5 - 15 mmol/L [facility] Calcium 9.4 8.5 - 10.5 mg/dL [facility] Est Glomerular Filtration Rate 105 >=60 mL/min/1. 73 m?? [facility] Comment: This patient's estimated GFR [...] In Lab Jigar Streeter MD CHEMISTRY ORDERABLES [facility] [place] [address] * Magnesium (09/12/2022 3:40 PM EDT) Magnesium 0.93 0.69 - 1.07 mmol/L [facility] Blood 09/12/2022 3:40 PM EDT 09/12/2022 3:51 PM EDT Narrative Resulting Agency Comment Spec In Lab Richard Pascal MD CHEMISTRY ORDERABLES [facility] [place] [address] * POCT Glucose (09/12/2022 3:36 PM EDT) Glucose, POC 109 65 - 199 mg/dL [facility] Comment: Supplemental ranges: <140 mg/dL before meals <180 mg/dL all other times of the day Blood 09/12/2022 3:36 PM EDT 09/12/2022 3:36 PM EDT Chong Chao MD POINT OF CARE TEST O RDERABLES Performing Organization Address City/[facility]/ZIP Co de Phone Number [facility] [place] [address] * POCT Glucose (09/12/2022 11:37 AM EDT) Glucose, POC 84 65 - 199 mg/dL [facility] Comment: Supplemental ranges: <140 mg/dL before meals <180 mg/dL all other times of the day Blood 09/12/2022 11:3 7 AM EDT 09/12/2022 11:37 AM EDT Chong Chao MD POINT OF CARE TEST O RDERABLES Performing Organization Address [facility] Co de Phone Number [facility] [place] [address] * POCT Glucose (09/12/2022 6:33 AM EDT) Glucose, POC 98 65 - 199 mg/dL [facility] Comment: Supplemental ranges: <140 mg/dL before meals <180 mg/dL all other times of the day Blood 09/12/2022 6:33 AM EDT 09/12/2022 6:33 AM EDT Molina Flores MD POINT OF CARE TEST ORDERABLES Performing Organization Address City/[facility]/ZIP Co de Phone Number [facility] [place] [address] * (ABNORMAL) Differential, Automated (09/12/2022 3:25 AM EDT) Neutrophil % 79.2 % [facility] Neutrophil Absolute 4.22 1.70 - 6.10 x10(3)/ L [facility] Lymph % 16.4 % [facility] Lymphocytes Abs 0.9 0.9 - 3.2 x10(3)/ L [facility] Monocyte % 3.2 % [facility] Monocyte Abs 0.2(L) 0.3 - 0.9 x10(3)/[facility] Eos % 0.0 % [facility] Eosinophils Abs 0.0 0.0 - 0.4 x10(3)/[facility] Basophil % 0.6 % [facility] Baso Absolute 0.0 0.0 - 0.1 x10(3)/[facility]ORY Immature Gran % 0.60 % [facility] Comment: Immature granulocytes(IG's)percentage and absolute count will include metamyelocytes, myelocytes, and promyelocytes. Blood smears from CBCs yielding IG's will be scanned manually for concordance. If this scan disagrees with the automated IG or if promyelocytes are noted, a manual differential will be performed. Immature Gran Absolute 0.03 0.00 - 0.04 x10(3)/[facility] Blood 09/12/2022 3:25 AM EDT 09/12/2022 3:33 AM EDT Narrative Resulting Agency Comment Spec In Lab Jigar Streeter MD HEMATOLOGY ORDERABLE S [facility] [place] [address] * (ABNORMAL) Hemogram (09/12/2022 3:25 AM EDT) White Blood Cell 5.3 4.0 - 9.5 x10(3)/[facility] Red Blood Cell 4.23 4.00 - 5.21 x10(6)/[facility] Comment:Dimorphic RBC popula tion. Hemoglobin 9.6(L) 11.7 - 15.5 g/dL [facility] Hematocrit 32.4(L) 35.7 - 45.8 % [facility] Mean Cell Volume 76.6(L) 82.6 - 94.4 fL [facility] Mean Cell Hemoglobin 22.7(L) 27.1 - 32.0 pg [facility] Mean Cell Hemoglobin Concentration 29.6(L) 31.7 - 35.0 g/dL [facility] Platelet 241 145 - 357 x10(3)/mc L [facility] RDW Standard Deviation 78.0(H) 37.0 - 46.0 fL [facility] RDW coefficient of variation 29.6(H) 11.5 - 14.1 % [facility] Mean Platelet Volume 9.9 7.6 - 12.9 fL [facility] NRBC% auto 0.0 % [facility] NRBC Absolute 0.000 0.000 - 0.000 x10(3)/mc L [facility] Blood 09/12/2022 3:25 AM EDT 09/12/2022 3:33 AM EDT Narrative Resulting Agency Comment Spec In Lab Jigar Streeter MD HEMATOLOGY ORDERABLE S [facility] [place] [address] * Phosphorus (09/12/2022 3:25 AM EDT) Phosphorus 3.6 2.5 - 4.5 mg/dL [facility] Blood 09/12/2022 3:25 AM EDT 09/12/2022 3:33 AM EDT Narrative Resulting Agency Comment Spec In Lab Richard Pascal MD CHEMISTRY ORDERABLES Performing Organization Address City/[facility]/ZIP Co de Phone Number [facility] [place] [address] * (ABNORMAL) Basic Metabolic Panel (non-fasting) (09/12/2022 3:25 AM EDT) Glucose 123 65 - 199 mg/dL [facility] Comment:Diabetes: >=200 mg/d L plus symptoms Blood Urea Nitrogen 8 8 - 18 mg/dL [facility] Creatinine 0.49(L) 0.70 - 1.20 mg/dL [facility] Sodium 139 135 - 145 mmol/L [facility] Potassium 4.5 3.5 - 5.0 mmol/L [facility] Comment: result [id number]-JSJ Please note: ??Patients with WBC >100,000 may have falsely elevated Potassium levels. ??For accurate Potassium quantification in these patients send serum separator tube (gold top) for subsequent determinations. ??Contact the Clinical Chemistry Laboratory if there are any questions. Chloride 104 98 - 107 mmol/L [facility] Carbon Dioxide 26 22 - 31 mmol/L [facility] Anion Gap 9 5 - 15 mmol/L [facility] Calcium 9.2 8.5 - 10.5 mg/dL [facility] Est Glomerular Filtration Rate 106 >=60 mL/min/1. 73 m?? [facility] Comment: This patient's estimated GFR [...] In Lab Richard Pascal MD CHEMISTRY ORDERABLES [facility] [place] [address] * Magnesium (09/12/2022 3:25 AM EDT) Magnesium 0.76 0.69 - 1.07 mmol/L [facility] Blood 09/12/2022 3:25 AM EDT 09/12/2022 3:33 AM EDT Narrative Resulting Agency Comment Spec In Lab Richard Pascal MD CHEMISTRY ORDERABLES [facility] [place] [address] * POCT Glucose (09/12/2022 3:07 AM EDT) Glucose, POC 124 65 - 199 mg/dL [facility] Comment: Supplemental ranges: <140 mg/dL before meals <180 mg/dL all other times of the day Blood 09/12/2022 3:07 AM EDT 09/12/2022 3:07 AM EDT Molina Flores MD POINT OF CARE TEST ORDERABLES Performing Organization Address City/[facility]/ZIP Co de Phone Number [facility] [place] [address] * POCT Glucose (09/11/2022 11:30 PM EDT) Glucose, POC 175 65 - 199 mg/dL [facility] Comment: Supplemental ranges: <140 mg/dL before meals <180 mg/dL all other times of the day Blood 09/11/2022 11:3 0 PM EDT 09/11/2022 11:30 PM EDT Molina Flores MD POINT OF CARE TEST ORDERABLES Performing Organization Address City/[facility]/ZIP Co de Phone Number [facility] [place] [address] * POCT Glucose (09/11/2022 7:59 PM EDT) Glucose, POC 139 65 - 199 mg/dL [facility] Comment: Supplemental ranges: <140 mg/dL before meals <180 mg/dL all other times of the day Blood 09/11/2022 7:59 PM EDT 09/11/2022 7:59 PM EDT Molina Flores MD POINT OF CARE TEST ORDERABLES [facility] [place] [address] * POCT Glucose (09/11/2022 5:25 PM EDT) Glucose, POC 156 65 - 199 mg/dL [facility] Comment: Supplemental ranges: <140 mg/dL before meals <180 mg/dL all other times of the day Blood 09/11/2022 5:25 PM EDT 09/11/2022 5:25 PM EDT Molina Flores MD POINT OF CARE TEST ORDERABLES [facility] [place] [address] * IR G-Tube Placement (09/11/2022 5:19 PM [...] barrier technique was used throughout. ??A 4 Yemeni glide catheter??was placed??as a??nasoenteric tube??under fluoroscopy with [...] Hart performed this procedure. Molina Flores MD G IR ORDERABLES * POCT Glucose (09/11/2022 11:35 AM EDT) Glucose, POC 154 65 - 199 mg/dL [facility] Comment: Supplemental ranges: <140 mg/dL before meals <180 mg/dL all other times of the day Blood 09/11/2022 11:3 5 AM EDT 09/11/2022 11:35 AM EDT Molina Flores MD POINT OF CARE TEST ORDERABLES [facility] [place] [address] * POCT Glucose (09/11/2022 6:47 AM EDT) Glucose, POC 147 65 - 199 mg/dL [facility] Comment: Supplemental ranges: <140 mg/dL before meals <180 mg/dL all other times of the day Blood 09/11/2022 6:47 AM EDT 09/11/2022 6:47 AM EDT Molina Flores MD POINT OF CARE TEST ORDERABLES Performing Organization Address City/[facility]/[place] [address] * Differential, Automated (09/11/2022 4:05 AM EDT) Neutrophil % 53.0 % [facility] Neutrophil Absolute 2.39 1.70 - 6.10 x10(3)/[facility] Lymph % 26.4 % [facility] Lymphocytes Abs 1.2 0.9 - 3.2 x10(3)/[facility] Monocyte % 12.4 % [facility] Monocyte Abs 0.6 0.3 - 0.9 x10(3)/[facility] Eos % 6.9 % [facility] Eosinophils Abs 0.3 0.0 - 0.4 x10(3)/[facility] Basophil % 0.9 % [facility] Baso Absolute 0.0 0.0 - 0.1 x10(3)/[facility] Immature Gran % 0.40 % [facility] Comment: Immature granulocytes(IG's)percentage and absolute count will include metamyelocytes, myelocytes, and promyelocytes. Blood smears from CBCs yielding IG's will be scanned manually for concordance. If this scan disagrees with the automated IG or if promyelocytes are noted, a manual differential will be performed. Immature Gran Absolute 0.02 0.00 - 0.04 x10(3)/[facility] Blood 09/11/2022 4:05 AM EDT 09/11/2022 4:12 AM EDT Narrative Resulting Agency Comment Spec In Lab Jigar Streeter MD HEMATOLOGY ORDERABLE S Performing Organization Address City/[facility]/[place] [address] * (ABNORMAL) Hemogram (09/11/2022 4:05 AM EDT) White Blood Cell 4.5 4.0 - 9.5 x10(3)/mc L [facility] Red Blood Cell 3.93(L) 4.00 - 5.21 x10(6)/mc L [facility] Hemoglobin 9.0(L) 11.7 - 15.5 g/dL [facility] Hematocrit 30.2(L) 35.7 - 45.8 % [facility] Mean Cell Volume 76.8(L) 82.6 - 94.4 fL [facility] Mean Cell Hemoglobin 22.9(L) 27.1 - 32.0 pg [facility] Mean Cell Hemoglobin Concentration 29.8(L) 31.7 - 35.0 g/dL [facility] Platelet 219 145 - 357 x10(3)/mc L [facility] RDW Standard Deviation 78.3(H) 37.0 - 46.0 fL [facility] RDW coefficient of variation 30.1(H) 11.5 - 14.1 % [facility] Mean Platelet Volume 9.8 7.6 - 12.9 fL [facility] NRBC% auto 0.0 % [facility] NRBC Absolute 0.000 0.000 - 0.000 x10(3)/ L [facility] Blood 09/11/2022 4:05 AM EDT 09/11/2022 4:12 AM EDT Narrative Resulting Agency Comment Spec In Lab Jigar Streeter MD HEMATOLOGY ORDERABLE S [facility] [place] [address] * Phosphorus (09/11/2022 4:05 AM EDT) Phosphorus 2.8 2.5 - 4.5 mg/dL [facility] Blood 09/11/2022 4:05 AM EDT 09/11/2022 4:12 AM EDT Narrative Resulting Agency Comment Spec In Lab Richard Pascal MD CHEMISTRY ORDERABLES Performing Organization Address [facility]/ZIP Co de Phone Number [facility] [place] [address] * (ABNORMAL) Basic Metabolic Panel (non-fasting) (09/11/2022 4:05 AM EDT) Glucose 195 65 - 199 mg/dL [facility] Comment:Diabetes: >=200 mg/d L plus symptoms Blood Urea Nitrogen 6(L) 8 - 18 mg/dL [facility] Creatinine 0.44(L) 0.70 - 1.20 mg/dL [facility] Sodium 143 135 - 145 mmol/L [facility] Potassium 3.4(L) 3.5 - 5.0 mmol/L [facility] Comment: Please note: ??Patients with WBC >100,000 may have falsely elevated Potassium levels. ??For accurate Potassium quantification in these patients send serum separator tube (gold top) for subsequent determinations. ??Contact the Clinical Chemistry Laboratory if there are any questions. Chloride 107 98 - 107 mmol/L [facility] Carbon Dioxide 28 22 - 31 mmol/L [facility] Anion Gap 8 5 - 15 mmol/L [facility] Calcium 8.9 8.5 - 10.5 mg/dL [facility] Est Glomerular Filtration Rate 109 >=60 mL/min/1. 73 m?? [facility] Comment: This patient's estimated GFR [...] Pascal MD CHEMISTRY ORDERABLES Performing Organization Address City/[facility]/ZIP Co de Phone Number [facility] [place] [address] * POCT Glucose (09/11/2022 3:56 AM EDT) Glucose, POC 121 65 - 199 mg/dL [facility] Comment: Supplemental ranges: <140 mg/dL before meals <180 mg/dL all other times of the day Blood 09/11/2022 3:56 AM EDT 09/11/2022 3:56 AM EDT Molina Flores MD POINT OF CARE TEST ORDERABLES [facility] [place] [address] * POCT Glucose (09/11/2022 12:03 AM EDT) Glucose, POC 174 65 - 199 mg/dL [facility] Comment: Supplemental ranges: <140 mg/dL before meals <180 mg/dL all other times of the day Blood 09/11/2022 12:0 3 AM EDT 09/11/2022 12:03 AM EDT Molina Flores MD POINT OF CARE TEST ORDERABLES [facility] [place] [address] * POCT Glucose (09/10/2022 7:45 PM EDT) Glucose, POC 142 65 - 199 mg/dL [facility] Comment: Supplemental ranges: <140 mg/dL before meals <180 mg/dL all other times of the day Blood 09/10/2022 7:45 PM EDT 09/10/2022 7:45 PM EDT Molina Flores MD POINT OF CARE TEST ORDERABLES [facility] [place] [address] * POCT Glucose (09/10/2022 4:21 PM EDT) Glucose, POC 141 65 - 199 mg/dL [facility] Comment: Supplemental ranges: <140 mg/dL before meals <180 mg/dL all other times of the day Blood 09/10/2022 4:21 PM EDT 09/10/2022 4:21 PM EDT Molina Flores MD POINT OF CARE TEST ORDERABLES [facility] [place] [address] * POCT Glucose (09/10/2022 3:23 PM EDT) Glucose, POC 188 65 - 199 mg/dL [facility] Comment: Supplemental ranges: <140 mg/dL before meals <180 mg/dL all other times of the day Blood 09/10/2022 3:23 PM EDT 09/10/2022 3:23 PM EDT Molina Flores MD POINT OF CARE TEST ORDERABLES [facility] [place] [address] * POCT Glucose (09/10/2022 2:07 PM EDT) Glucose, POC 166 65 - 199 mg/dL [facility] Comment: Supplemental ranges: <140 mg/dL before meals <180 mg/dL all other times of the day Blood 09/10/2022 2:07 PM EDT 09/10/2022 2:07 PM EDT Molina Flores MD POINT OF CARE TEST ORDERABLES [facility] [place] [address] * POCT Glucose (09/10/2022 11:59 AM EDT) Glucose, POC 165 65 - 199 mg/dL [facility] Comment: Supplemental ranges: <140 mg/dL before meals <180 mg/dL all other times of the day Blood 09/10/2022 11:5 9 AM EDT 09/10/2022 11:59 AM EDT Molina Flores MD POINT [place] [address] * (ABNORMAL) Differential, Automated (09/10/2022 9:20 AM EDT) Neutrophil % 59.6 % [facility] Neutrophil Absolute 3.39 1.70 - 6.10 x10(3)/mc L [facility] Lymph % 21.4 % [facility] Lymphocytes Abs 1.2 0.9 - 3.2 x10(3)/mc L [facility] Monocyte % 11.4 % [facility] Monocyte Abs 0.6 0.3 - 0.9 x10(3)/mc L [facility] Eos % 6.2 % [facility] Eosinophils Abs 0.4 0.0 - 0.4 x10(3)/mc L [facility] Basophil % 0.5 % [facility] Baso Absolute 0.0 0.0 - 0.1 x10(3)/mc L [facility] Immature Gran % 0.90 % [facility] Comment: Immature granulocytes(IG's)percentage and absolute count will include metamyelocytes, myelocytes, and promyelocytes. Blood smears from CBCs yielding IG's will be scanned manually for concordance. If this scan disagrees with the automated IG or if promyelocytes are noted, a manual differential will be performed. Immature Gran Absolute 0.05(H) 0.00 - 0.04 x10(3)/mc L [facility] Blood 09/10/2022 9:20 AM EDT 09/10/2022 10:10 AM EDT Narrative Resulting Agency Comment Spec In Lab Chau Keith MD HEMATOLOGY [place] [address] * (ABNORMAL) Hemogram (09/10/2022 9:20 AM EDT) White Blood Cell 5.7 4.0 - 9.5 x10(3)/ L [facility] Red Blood Cell 4.06 4.00 - 5.21 x10(6)/ L [facility] Comment:Dimorphic RBC popula tion. Hemoglobin 9.2(L) 11.7 - 15.5 g/dL [facility] Hematocrit 31.4(L) 35.7 - 45.8 % [facility] Mean Cell Volume 77.3(L) 82.6 - 94.4 fL [facility] Mean Cell Hemoglobin 22.7(L) 27.1 - 32.0 pg [facility] Mean Cell Hemoglobin Concentration 29.3(L) 31.7 - 35.0 g/dL [facility] Platelet 229 145 - 357 x10(3)/ L [facility] RDW Standard Deviation Not Measured 37.0 - 46.0 fL [facility] RDW coefficient of variation Not Measured 11.5 - 14.1 % [facility] Mean Platelet Volume 10.5 7.6 - 12.9 fL [facility] NRBC% auto 0.0 % [facility] NRBC Absolute 0.000 0.000 - 0.000 x10(3)/ L [facility] Blood 09/10/2022 9:20 AM EDT 09/10/2022 10:10 AM EDT Narrative Resulting Agency Comment Spec In Lab Chau Keith MD HEMATOLOGY ORDERABLE S [facility] [place] [address] * POCT Glucose (09/10/2022 8:07 AM EDT) Glucose, POC 135 65 - 199 mg/dL [facility] Comment: Supplemental ranges: <140 mg/dL before meals <180 mg/dL all other times of the day Blood 09/10/2022 8:07 AM EDT 09/10/2022 8:07 AM EDT Molina Flores MD POINT OF CARE TEST ORDERABLES Performing Organization Address City/[facility] Co de Phone Number [facility] [place] [address] * POCT Glucose (09/10/2022 6:57 AM EDT) Glucose, POC 165 65 - 199 mg/dL [facility] Comment: Supplemental ranges: <140 mg/dL before meals <180 mg/dL all other times of the day Blood 09/10/2022 6:57 AM EDT 09/10/2022 6:57 AM EDT Molina Flores MD POINT OF CARE TEST ORDERABLES Performing Organization Address [facility] Co de Phone Number [facility] [place] [address] * Phosphorus (09/10/2022 6:00 AM EDT) Phosphorus 3.3 2.5 - 4.5 mg/dL [facility] Blood 09/10/2022 6:00 AM EDT 09/10/2022 6:13 AM EDT Narrative Resulting Agency Comment Spec In Lab Richard Pascal MD CHEMISTRY ORDERABLES Performing Organization Address [facility] Co de Phone Number [facility] [place] [address] * (ABNORMAL) Magnesium (09/10/2022 6:00 AM EDT) Magnesium 0.67(L) 0.69 - 1.07 mmol/L [facility] Blood 09/10/2022 6:00 AM EDT 09/10/2022 6:13 AM EDT Narrative Resulting Agency Comment Spec In Lab Richard Pascal MD CHEMISTRY ORDERABLES Performing Organization Address [facility] Co de Phone Number [facility] [place] [address] * (ABNORMAL) Basic Metabolic Panel (non-fasting) (09/10/2022 6:00 AM EDT) Glucose 158 65 - 199 mg/dL [facility] Comment:Diabetes: >=200 mg/d L plus symptoms Blood Urea Nitrogen 11 8 - 18 mg/dL [facility] Creatinine 0.48(L) 0.70 - 1.20 mg/dL [facility] Sodium 140 135 - 145 mmol/L [facility] Potassium 3.7 3.5 - 5.0 mmol/L [facility] Comment: Please note: ??Patients with WBC >100,000 may have falsely elevated Potassium levels. ??For accurate Potassium quantification in these patients send serum separator tube (gold top) for subsequent determinations. ??Contact the Clinical Chemistry Laboratory if there are any questions. Chloride 105 98 - 107 mmol/L [facility] Carbon Dioxide 27 22 - 31 mmol/L [facility] Anion Gap 8 5 - 15 mmol/L [facility] Calcium 9.1 8.5 - 10.5 mg/dL [facility] Est Glomerular Filtration Rate 107 >=60 mL/min/1. 73 m?? [facility] Comment: This patient's estimated GFR [...] In Lab Richard Pascal MD CHEMISTRY ORDERABLES [facility] [place] [address] * POCT Glucose (09/10/2022 3:40 AM EDT) Glucose, POC 160 65 - 199 mg/dL [facility] Comment: Supplemental ranges: <140 mg/dL before meals <180 mg/dL all other times of the day Blood 09/10/2022 3:40 AM EDT 09/10/2022 3:40 AM EDT Molina Flores MD POINT OF CARE TEST ORDERABLES Performing Organization Address [facility] Co de Phone Number [facility] [place] [address] * POCT Glucose (09/10/2022 1:44 AM EDT) Glucose, POC 145 65 - 199 mg/dL [facility] Comment: Supplemental ranges: <140 mg/dL before meals <180 mg/dL all other times of the day Blood 09/10/2022 1:44 AM EDT 09/10/2022 1:44 AM EDT Molina Flores MD POINT OF CARE TEST ORDERABLES Performing Organization Address [facility] de Phone Number [facility] [place] [address] * XR Abdomen 1 view (Generic) (09/10/2022 [...] who have questions please contact the health infant childcare provider that requested your imaging first. ? Electronically signed by: Camille Garcia MD, [facility] ([phone]), at 09/10/2022 1:16 AM Narrative 09/10/2022 1:16 [...] patients who have questions please contactthe health infant childcare provider that requested your imaging first. Electronically signed by: Camille Garcia MD, [facility]([phone]), at 09/10/2022 1:16 AM Molina Flores MD IMG DX ORDERABLES * POCT Glucose (09/09/2022 8:09 PM EDT) [facility] Glucose, POC 153 65 - 199 mg/dL [facility] Comment: Supplemental ranges: <140 mg/dL before meals <180 mg/dL all other times of the day Blood 09/09/2022 8:09 PM EDT 09/09/2022 8:09 PM EDT Molina Flores MD POINT OF CARE TEST ORDERABLES [facility] [place] [address] * POCT Glucose (09/09/2022 5:20 PM EDT) Glucose, POC 146 65 - 199 mg/dL [facility] Comment: Supplemental ranges: <140 mg/dL before meals <180 mg/dL all other times of the day Blood 09/09/2022 5:20 PM EDT 09/09/2022 5:20 PM EDT Molina Flores MD POINT OF CARE TEST ORDERABLES [facility] [place] [address] * POCT Glucose (09/09/2022 1:18 PM EDT) Glucose, POC 138 65 - 199 mg/dL [facility] Comment: Supplemental ranges: <140 mg/dL before meals <180 mg/dL all other times of the day Blood 09/09/2022 1:18 PM EDT 09/09/2022 1:18 PM EDT Molina Flores MD POINT OF CARE TEST ORDERABLES [facility] [place] [address] * POCT Glucose (09/09/2022 10:10 AM EDT) Glucose, POC 167 65 - 199 mg/dL [facility] Comment: Supplemental ranges: <140 mg/dL before meals <180 mg/dL all other times of the day Blood 09/09/2022 10:1 0 AM EDT 09/09/2022 10:10 AM EDT Molina Flores MD POINT OF CARE TEST ORDERABLES [facility] [place] [address] * POCT Glucose (09/09/2022 6:41 AM EDT) Glucose, POC 150 65 - 199 mg/dL [facility] Comment: Supplemental ranges: <140 mg/dL before meals <180 mg/dL all other times of the day Blood 09/09/2022 6:41 AM EDT 09/09/2022 6:41 AM EDT Molina Flores MD POINT OF CARE TEST ORDERABLES Performing Organization Address City/[facility] Co de Phone Number [facility] [place] [address] * (ABNORMAL) Differential, Automated (09/09/2022 4:00 AM EDT) Neutrophil % 49.9 % [facility] Neutrophil Absolute 3.43 1.70 - 6.10 x10(3)/mc L [facility] Lymph % 27.9 % [facility] Lymphocytes Abs 1.9 0.9 - 3.2 x10(3)/mc L [facility] Monocyte % 10.2 % [facility] Monocyte Abs 0.7 0.3 - 0.9 x10(3)/mc L [facility] Eos % 10.0 % [facility] [facility] Eosinophils Abs 0.7(H) 0.0 - 0.4 x10(3)/mc L [facility] Basophil % 1.0 % [facility] Baso Absolute 0.1 0.0 - 0.1 x10(3)/mc L [facility] Immature Gran % 1.00 % [facility] Comment: Immature granulocytes(IG's)percentage and absolute count will include metamyelocytes, myelocytes, and promyelocytes. Blood smears from CBCs yielding IG's will be scanned manually for concordance. If this scan disagrees with the automated IG or if promyelocytes are noted, a manual differential will be performed. Immature Gran Absolute 0.07(H) 0.00 - 0.04 x10(3)/ L [facility] Blood 09/09/2022 4:00 AM EDT 09/09/2022 4:18 AM EDT Narrative Resulting Agency Comment Spec In Lab Jigar Streeter MD HEMATOLOGY ORDERABLE S [facility] [place] [address] * (ABNORMAL) Hemogram (09/09/2022 4:00 AM EDT) White Blood Cell 6.9 4.0 - 9.5 x10(3)/[facility] Red Blood Cell 4.37 4.00 - 5.21 x10(6)/[facility] Comment:Dimorphic RBC popula tion. Hemoglobin 9.8(L) 11.7 - 15.5 g/dL [facility] Hematocrit 33.4(L) 35.7 - 45.8 % [facility] Mean Cell Volume 76.4(L) 82.6 - 94.4 fL [facility] Mean Cell Hemoglobin 22.4(L) 27.1 - 32.0 pg [facility] Mean Cell Hemoglobin Concentration 29.3(L) 31.7 - 35.0 g/dL [facility] Platelet 264 145 - 357 x10(3)/[facility] RDW Standard Deviation 79.7(H) 37.0 - 46.0 fL [facility] RDW coefficient of variation 30.7(H) 11.5 - 14.1 % [facility] Mean Platelet Volume 10.0 7.6 - 12.9 fL [facility] NRBC% auto 0.0 % [facility] NRBC Absolute 0.000 0.000 - 0.000 x10(3)/ L [facility] Blood 09/09/2022 4:00 AM EDT 09/09/2022 4:18 AM EDT Narrative Resulting Agency Comment Spec In Lab Jigar Streeter MD HEMATOLOGY ORDERABLE S [facility] [place] [place] [address] * (ABNORMAL) Basic Metabolic Panel (non-fasting) (09/09/2022 4:00 AM EDT) Glucose 139 65 - 199 mg/dL [facility] Comment:Diabetes: >=200 mg/d L plus symptoms Blood Urea Nitrogen 24(H) 8 - 18 mg/dL [facility] Creatinine 0.56(L) 0.70 - 1.20 mg/dL [facility] Sodium 140 135 - 145 mmol/L [facility] Potassium 4.3 3.5 - 5.0 mmol/L [facility] Comment: Please note: ??Patients with WBC >100,000 may have falsely elevated Potassium levels. ??For accurate Potassium quantification in these patients send serum separator tube (gold top) for subsequent determinations. ??Contact the Clinical Chemistry Laboratory if there are any questions. Chloride 102 98 - 107 mmol/L [facility] Carbon Dioxide 28 22 - 31 mmol/L [facility] Anion Gap 10 5 - 15 mmol/L [facility] Calcium 10.1 8.5 - 10.5 mg/dL [facility] Est Glomerular Filtration Rate 103 >=60 mL/min/1. 73 m?? [facility] Comment: This patient's estimated GFR [...] In Lab Richard Pascal MD CHEMISTRY ORDERABLES [facility] [place] [address] * Phosphorus (09/09/2022 4:00 AM EDT) Phosphorus 4.2 2.5 - 4.5 mg/dL [facility] Blood 09/09/2022 4:00 AM EDT 09/09/2022 4:18 AM EDT Narrative Resulting Agency Comment Spec In Lab Richard Pascal MD CHEMISTRY ORDERABLES Performing Organization Address City/[facility] Co de Phone Number [facility] [place] [address] * Magnesium (09/09/2022 4:00 AM EDT) Magnesium 0.86 0.69 - 1.07 mmol/L [facility] Blood 09/09/2022 4:00 AM EDT 09/09/2022 4:18 AM EDT Narrative Resulting Agency Comment Spec In Lab Richard Pascal MD CHEMISTRY ORDERABLES Performing Organization Address [facility] Co de Phone Number [facility] [place] [address] * POCT Glucose (09/09/2022 3:49 AM EDT) Glucose, POC 140 65 - 199 mg/dL [facility] Comment: Supplemental ranges: <140 mg/dL before meals <180 mg/dL all other times of the day Blood 09/09/2022 3:49 AM EDT 09/09/2022 3:49 AM EDT Molina Flores MD POINT OF CARE TEST ORDERABLES Performing Organization Address City/[facility]/ZIP Co de Phone Number [facility] [place] [address] * POCT Glucose (09/08/2022 11:53 PM EDT) Glucose, POC 116 65 - 199 mg/dL [facility] Comment: Supplemental ranges: <140 mg/dL before meals <180 mg/dL all other times of the day Blood 09/08/2022 11:5 3 PM EDT 09/08/2022 11:53 PM EDT Molina Flores MD POINT OF CARE TEST ORDERABLES [facility] [place] [address] * POCT Glucose (09/08/2022 7:54 PM EDT) Glucose, POC 182 65 - 199 mg/dL [facility] Comment: Supplemental ranges: <140 mg/dL before meals <180 mg/dL all other times of the day Blood 09/08/2022 7:54 PM EDT 09/08/2022 7:54 PM EDT Molina Flores MD POINT OF CARE TEST ORDERABLES Performing Organization Address City/[facility]/ZIP Co de Phone Number [facility] [place] [address] * POCT Glucose (09/08/2022 4:57 PM EDT) Glucose, POC 119 65 - 199 mg/dL [facility] Comment: Supplemental ranges: <140 mg/dL before meals <180 mg/dL all other times of the day Blood 09/08/2022 4:57 PM EDT 09/08/2022 4:57 PM EDT Molina Flores MD POINT OF CARE TEST ORDERABLES [facility] [place] [address] * POCT Glucose (09/08/2022 6:53 AM EDT) Glucose, POC 134 65 - 199 mg/dL [facility] Comment: Supplemental ranges: <140 mg/dL before meals <180 mg/dL all other times of the day Blood 09/08/2022 6:53 AM EDT 09/08/2022 6:53 AM EDT Richard Pascal MD POINT OF CARE TEST O RDERABLES [facility] [place] [address] * POCT Glucose (09/08/2022 3:57 AM EDT) Glucose, POC 165 65 - 199 mg/dL [facility] Comment: Supplemental ranges: <140 mg/dL before meals <180 mg/dL all other times of the day Blood 09/08/2022 3:57 AM EDT 09/08/2022 3:57 AM EDT Richard Psacal MD POINT OF CARE TEST O RDERABLES Performing Organization Address [facility] Co de Phone Number [facility] [place] [address] * (ABNORMAL) Differential, Automated (09/08/2022 2:00 AM EDT) Neutrophil % 49.5 % [facility] Neutrophil Absolute 3.42 1.70 - 6.10 x10(3)/mc L [facility] Lymph % 28.0 % [facility] Lymphocytes Abs 1.9 0.9 - 3.2 x10(3)/mc L [facility] Monocyte % 12.2 % [facility] Monocyte Abs 0.8 0.3 - 0.9 x10(3)/mc L [facility] Eos % 8.7 % [facility] Eosinophils Abs 0.6(H) 0.0 - 0.4 x10(3)/mc L [facility] Basophil % 0.9 % [facility] Baso Absolute 0.1 0.0 - 0.1 x10(3)/mc L [facility] Immature Gran % 0.70 % [facility] Comment: Immature granulocytes(IG's)percentage and absolute count will include metamyelocytes, myelocytes, and promyelocytes. Blood smears from CBCs yielding IG's will be scanned manually for concordance. If this scan disagrees with the automated IG or if promyelocytes are noted, a manual differential will be performed. Immature Gran Absolute 0.05(H) 0.00 - 0.04 x10(3)/ L [facility] Blood 09/08/2022 2:00 AM EDT 09/08/2022 2:13 AM EDT Narrative Resulting Agency Comment Spec In Lab Jigar Streeter MD HEMATOLOGY ORDERABLE S [facility] [place] [address] * (ABNORMAL) Hemogram (09/08/2022 2:00 AM EDT) White Blood Cell 6.9 4.0 - 9.5 x10(3)/[facility] Red Blood Cell 4.34 4.00 - 5.21 x10(6)/[facility] Comment:Dimorphic RBC popula tion. Hemoglobin 9.8(L) 11.7 - 15.5 g/dL [facility] Hematocrit 32.6(L) 35.7 - 45.8 % [facility] Mean Cell Volume 75.1(L) 82.6 - 94.4 fL [facility] Mean Cell Hemoglobin 22.6(L) 27.1 - 32.0 pg [facility] Mean Cell Hemoglobin Concentration 30.1(L) 31.7 - 35.0 g/dL [facility] Platelet 300 145 - 357 x10(3)/[facility] RDW Standard Deviation Not Measured 37.0 - 46.0 fL [facility] RDW coefficient of variation Not Measured 11.5 - 14.1 % [facility] Mean Platelet Volume 9.5 7.6 - 12.9 fL [facility] NRBC% auto 0.0 % [facility] NRBC Absolute 0.000 0.000 - 0.000 x10(3)/[facility] Blood 09/08/2022 2:00 AM EDT 09/08/2022 2:13 AM EDT Narrative Resulting Agency Comment Spec In Lab Jigar Streeter MD HEMATOLOGY ORDERABLE S Performing Organization Address [facility]/ZIP Co de Phone Number [facility] [place] [address] * (ABNORMAL) Basic Metabolic Panel (non-fasting) (09/08/2022 2:00 AM EDT) Glucose 142 65 - 199 mg/dL [facility] Comment:Diabetes: >=200 mg/d L plus symptoms Blood Urea Nitrogen 25(H) 8 - 18 mg/dL [facility] Creatinine 0.52(L) 0.70 - 1.20 mg/dL [facility] Sodium 142 135 - 145 mmol/L [facility] Potassium 4.6 3.5 - 5.0 mmol/L [facility] Comment: Please note: ??Patients with WBC >100,000 may have falsely elevated Potassium levels. ??For accurate Potassium quantification in these patients send serum separator tube (gold top) for subsequent determinations. ??Contact the Clinical Chemistry Laboratory if there are any questions. Chloride 103 98 - 107 mmol/L [facility] Carbon Dioxide 30 22 - 31 mmol/L [facility] Anion Gap 9 5 - 15 mmol/L [facility] Calcium 10.0 8.5 - 10.5 mg/dL [facility] Est Glomerular Filtration Rate 105 >=60 mL/min/1. 73 m?? [facility] Comment: This patient's estimated GFR [...] Pascal MD CHEMISTRY ORDERABLES Performing Organization Address City/[facility]/ZIP Co de Phone Number [facility] [place] [address] * Phosphorus (09/08/2022 2:00 AM EDT) Phosphorus 3.2 2.5 - 4.5 mg/dL [facility] Blood 09/08/2022 2:00 AM EDT 09/08/2022 2:13 AM EDT Narrative Resulting Agency Comment Spec In Lab Richard Pascal MD CHEMISTRY ORDERABLES [facility] [place] [address] * Magnesium (09/08/2022 2:00 AM EDT) Magnesium 0.90 0.69 - 1.07 mmol/L [facility] Blood 09/08/2022 2:00 AM EDT 09/08/2022 2:13 AM EDT Narrative Resulting Agency Comment Spec In Lab Richard Pascal MD CHEMISTRY ORDERABLES Performing Organization Address [facility] Co de Phone Number [facility] [place] [address] * POCT Glucose (09/07/2022 11:06 PM EDT) Glucose, POC 189 65 - 199 mg/dL [facility] Comment: Supplemental ranges: <140 mg/dL before meals <180 mg/dL all other times of the day Blood 09/07/2022 11:0 6 PM EDT 09/07/2022 11:06 PM EDT Richard Pascal MD POINT OF CARE TEST O RDERABLES [facility] [place] [address] * POCT Glucose (09/07/2022 8:21 PM EDT) Glucose, POC 143 65 - 199 mg/dL [facility] Comment: Supplemental ranges: <140 mg/dL before meals <180 mg/dL all other times of the day Blood 09/07/2022 8:21 PM EDT 09/07/2022 8:21 PM EDT Molina Flores MD POINT OF CARE TEST ORDERABLES [facility] [place] [address] * POCT Glucose (09/07/2022 3:54 PM EDT) Glucose, POC 182 65 - 199 mg/dL [facility] Comment: Supplemental ranges: <140 mg/dL before meals <180 mg/dL all other times of the day Blood 09/07/2022 3:54 PM EDT 09/07/2022 3:54 PM EDT Molina Flores MD POINT OF CARE TEST ORDERABLES Performing Organization Address City/[facility]/ZIP Co de Phone Number [facility] [place] [address] * POCT Glucose (09/07/2022 11:26 AM EDT) Glucose, POC 153 65 - 199 mg/dL [facility] Comment: Supplemental ranges: <140 mg/dL before meals <180 mg/dL all other times of the day Blood 09/07/2022 11:2 6 AM EDT 09/07/2022 11:26 AM EDT Molina Flores MD POINT OF CARE TEST ORDERABLES [facility] [place] [address] * POCT Glucose (09/07/2022 7:46 AM EDT) Glucose, POC 150 65 - 199 mg/dL [facility] Comment: Supplemental ranges: <140 mg/dL before meals <180 mg/dL all other times of the day Blood 09/07/2022 7:46 AM EDT 09/07/2022 7:46 AM EDT Richard Pascal MD POINT OF CARE TEST O RDERABLES Performing Organization Address [facility] Co de Phone Number [facility] [place] [address] * EKG 12 Lead (09/07/2022 6:35 AM EDT) Ventricular rate 72 BPM MUSE SYSTEM Atrial Rate 72 BPM MUSE SYSTEM P-R Interval 148 ms MUSE SYSTEM QRS Duration 72 ms MUSE SYSTEM Q-T Interval 416 ms MUSE SYSTEM QTC Calculated (Bezet) 455 ms MUSE SYSTEM Calculated P [place] 53 degrees MUSE SYSTEM Calculated R [place] 86 degrees MUSE SYSTEM Calculated T [place] 149 degrees MUSE SYSTEM INTERPRETATION Normal sinus rhythm with sinus arrhythmia Low voltage QRS T wave abnormality, consider anterolateral ischemia Abnormal ECG When compared with ECG of 01-SEP-2022 02:24, No significant change was found I personally reviewed the tracing and edited the fellows interpretation Confirmed by fellow Niurka Rose ([id number]) on 09/07/2022 8:45:34 AM Confirmed by MD ALEJANDRA, RICHARD ([id number]) on 09/07/2022 1:55:43 PM MUSE SYSTEM 09/07/2022 6:35 AM EDT 09/07/2022 1:55 PM EDT Richard Pascal MD ECG ORDERABLES Performing Organization Address [facility] de Phone Number MUSE SYSTEM * POCT Glucose (09/07/2022 4:08 AM EDT) Glucose, POC 135 65 - 199 mg/dL [facility] Comment: Supplemental ranges: <140 mg/dL before meals <180 mg/dL all other times of the day Blood 09/07/2022 4:08 AM EDT 09/07/2022 4:08 AM EDT Richard Pascal MD POINT OF CARE TEST O RDERABLES Performing Organization Address [facility] Co de Phone Number [facility] [place] [address] * (ABNORMAL) Differential, Automated (09/07/2022 12:30 AM EDT) Neutrophil % 43.6 % [facility] Neutrophil Absolute 2.71 1.70 - 6.10 x10(3)/[facility] Lymph % 33.3 % [facility] Lymphocytes Abs 2.1 0.9 - 3.2 x10(3)/[facility] Monocyte % 11.6 % [facility] Monocyte Abs 0.7 0.3 - 0.9 x10(3)/[facility] Eos % 9.5 % [facility] Eosinophils Abs 0.6(H) 0.0 - 0.4 x10(3)/[facility] Basophil % 1.4 % [facility] Baso Absolute 0.1 0.0 - 0.1 x10(3)/[facility] Immature Gran % 0.60 % [facility] Comment: Immature granulocytes(IG's)percentage and absolute count will include metamyelocytes, myelocytes, and promyelocytes. Blood smears from CBCs yielding IG's will be scanned manually for concordance. If this scan disagrees with the automated IG or if promyelocytes are noted, a manual differential will be performed. Immature Gran Absolute 0.04 0.00 - 0.04 x10(3)/[facility] Blood 09/07/2022 12:3 0 AM EDT 09/07/2022 12:54 AM EDT Narrative Resulting Agency Comment Spec In Lab Jigar Streeter MD HEMATOLOGY ORDERABLE S [facility] [place] [address] * (ABNORMAL) Hemogram (09/07/2022 12:30 AM EDT) White Blood Cell 6.2 4.0 - 9.5 x10(3)/[facility] Red Blood Cell 4.11 4.00 - 5.21 x10(6)/[facility] Hemoglobin 9.1(L) 11.7 - 15.5 g/dL [facility] Hematocrit 30.5(L) 35.7 - 45.8 % [facility] Mean Cell Volume 74.2(L) 82.6 - 94.4 fL [facility] Mean Cell Hemoglobin 22.1(L) 27.1 - 32.0 pg [facility] Mean Cell Hemoglobin Concentration 29.8(L) 31.7 - 35.0 g/dL [facility] Platelet 286 145 - 357 x10(3)/mc L [facility] RDW Standard Deviation Not Measured 37.0 - 46.0 fL [facility] RDW coefficient of variation Not Measured 11.5 - 14.1 % [facility] Mean Platelet Volume 9.6 7.6 - 12.9 fL [facility] NRBC% auto 0.0 % [facility] NRBC Absolute 0.000 0.000 - 0.000 x10(3)/ L [facility] Blood 09/07/2022 12:3 0 AM EDT 09/07/2022 12:54 AM EDT Narrative Resulting Agency Comment Spec In Lab Jigar Streeter MD HEMATOLOGY ORDERABLE S [facility] [place] [address] * (ABNORMAL) Basic Metabolic Panel (non-fasting) (09/07/2022 12:30 AM EDT) Glucose 144 65 - 199 mg/dL [facility] Comment:Diabetes: >=200 mg/d L plus symptoms Blood Urea Nitrogen 22(H) 8 - 18 mg/dL [facility] Creatinine 0.53(L) 0.70 - 1.20 mg/dL [facility] Sodium 138 135 - 145 mmol/L [facility] Potassium 4.6 3.5 - 5.0 mmol/L [facility] Comment: Please note: ??Patients with WBC >100,000 may have falsely elevated Potassium levels. ??For accurate Potassium quantification in these patients send serum separator tube (gold top) for subsequent determinations. ??Contact the Clinical Chemistry Laboratory if there are any questions. Chloride 103 98 - 107 mmol/L [facility] Carbon Dioxide 29 22 - 31 mmol/L [facility] Anion Gap 6 5 - 15 mmol/L [facility] Calcium 9.4 8.5 - 10.5 mg/dL [facility] Est Glomerular Filtration Rate 105 >=60 mL/min/1. 73 m?? [facility] Comment: This patient's estimated GFR [...] Pascal MD CHEMISTRY ORDERABLES Performing Organization Address City/[facility]/ZIP Co de Phone Number [facility] [place] [address] * Phosphorus (09/07/2022 12:30 AM EDT) Phosphorus 3.0 2.5 - 4.5 mg/dL [facility] Blood 09/07/2022 12:3 0 AM EDT 09/07/2022 12:54 AM EDT Narrative Resulting Agency Comment Spec In Lab Richard Pascal MD CHEMISTRY ORDERABLES [facility] [place] [address] * Magnesium (09/07/2022 12:30 AM EDT) Magnesium 0.86 0.69 - 1.07 mmol/L [facility] Blood 09/07/2022 12:3 0 AM EDT 09/07/2022 12:54 AM EDT Narrative Resulting Agency Comment Spec In Lab Richard Pascal MD CHEMISTRY ORDERABLES [facility] [place] [address] * POCT Glucose (09/07/2022 12:29 AM EDT) Glucose, POC 127 65 - 199 mg/dL [facility] Comment: Supplemental ranges: <140 mg/dL before meals <180 mg/dL all other times of the day Blood 09/07/2022 12:2 9 AM EDT 09/07/2022 12:29 AM EDT Richard Pascal MD POINT OF CARE TEST O RDERABLES Performing Organization Address [facility] Co de Phone Number [facility] [place] [address] * POCT Glucose (09/06/2022 9:54 PM EDT) Glucose, POC 184 65 - 199 mg/dL [facility] Comment: Supplemental ranges: <140 mg/dL before meals <180 mg/dL all other times of the day Blood 09/06/2022 9:54 PM EDT 09/06/2022 9:54 PM EDT Richard Pascal MD POINT OF CARE TEST O RDERABLES Performing Organization Address [facility]/ZIP Co de Phone Number [facility] [place] [address] * POCT Glucose (09/06/2022 4:46 PM EDT) Glucose, POC 177 65 - 199 mg/dL [facility] Comment: Supplemental ranges: <140 mg/dL before meals <180 mg/dL all other times of the day Blood 09/06/2022 4:46 PM EDT 09/06/2022 4:46 PM EDT Richard Pascal MD POINT OF CARE TEST O RDERABLES Performing Organization Address City/[facility]/ZIP Co de Phone Number [facility] [place] [address] * POCT Glucose (09/06/2022 12:57 PM EDT) Glucose, POC 176 65 - 199 mg/dL [facility] Comment: Supplemental ranges: <140 mg/dL before meals <180 mg/dL all other times of the day Blood 09/06/2022 12:5 7 PM EDT 09/06/2022 12:57 PM EDT Richard Pascal MD POINT OF CARE TEST O GABRIELLA [facility] [place] [address] * POCT Glucose (09/06/2022 9:06 AM EDT) Glucose, POC 162 65 - 199 mg/dL [facility] Comment: Supplemental ranges: <140 mg/dL before meals <180 mg/dL all other times of the day Blood 09/06/2022 9:06 AM EDT 09/06/2022 9:06 AM EDT Richard Pascal MD POINT OF CARE TEST O GABRIELLA Performing Organization Address City/[facility]/ZIP Co de Phone Number [facility] [place] [address] * POCT Glucose (09/06/2022 3:39 AM EDT) Glucose, POC 102 65 - 199 mg/dL [facility] Comment: Supplemental ranges: <140 mg/dL before meals <180 mg/dL all other times of the day Blood 09/06/2022 3:39 AM EDT 09/06/2022 3:39 AM EDT Richard Pascal MD POINT OF CARE TEST O GABRIELLA Performing Organization Address City/[facility] Co de Phone Number [facility] [place] [address] * (ABNORMAL) Differential, Automated (09/06/2022 1:00 AM EDT) Neutrophil % 41.9 % [facility] Neutrophil Absolute 2.64 1.70 - 6.10 x10(3)/mc L [facility] Lymph % 36.2 % [facility] Lymphocytes Abs 2.3 0.9 - 3.2 x10(3)/ L [facility] Monocyte % 12.5 % [facility] Monocyte Abs 0.8 0.3 - 0.9 x10(3)/ L [facility] Eos % 7.6 % [facility] Eosinophils Abs 0.5(H) 0.0 - 0.4 x10(3)/mc L [facility] Basophil % 1.3 % [facility] Baso Absolute 0.1 0.0 - 0.1 x10(3)/ L [facility] Immature Gran % 0.50 % [facility] Comment: Immature granulocytes(IG's)percentage and absolute count will include metamyelocytes, myelocytes, and promyelocytes. Blood smears from CBCs yielding IG's will be scanned manually for concordance. If this scan disagrees with the automated IG or if promyelocytes are noted, a manual differential will be performed. Immature Gran Absolute 0.03 0.00 - 0.04 x10(3)/ L [facility] Blood 09/06/2022 1:00 AM EDT 09/06/2022 1:34 AM EDT Narrative Resulting Agency Comment Spec In Lab Tyler Cobb MD HEMATOLOGY ORDERABLE S [facility] [place] [address] * (ABNORMAL) Hemogram (09/06/2022 1:00 AM EDT) White Blood Cell 6.3 4.0 - 9.5 x10(3)/mc L [facility] Red Blood Cell 3.92(L) 4.00 - 5.21 x10(6)/ L [facility] Comment:Dimorphic RBC popula tion. Hemoglobin 8.6(L) 11.7 - 15.5 g/dL [facility] Hematocrit 29.0(L) 35.7 - 45.8 % [facility] Mean Cell Volume 74.0(L) 82.6 - 94.4 fL [facility] Mean Cell Hemoglobin 21.9(L) 27.1 - 32.0 pg [facility] Mean Cell Hemoglobin Concentration 29.7(L) 31.7 - 35.0 g/dL [facility] Platelet 297 145 - 357 x10(3)/mc L [facility] RDW Standard Deviation Not Measured 37.0 - 46.0 fL [facility] RDW coefficient of variation Not Measured 11.5 - 14.1 % [facility] Mean Platelet Volume 9.8 7.6 - 12.9 fL [facility] NRBC% auto 0.0 % [facility] NRBC Absolute 0.000 0.000 - 0.000 x10(3)/mc L [facility] Blood 09/06/2022 1:00 AM EDT 09/06/2022 1:34 AM EDT Narrative Resulting Agency Comment Spec In Lab Tyler Cobb MD HEMATOLOGY ORDERABLE S [facility] [place] [address] * (ABNORMAL) Basic Metabolic Panel (non-fasting) (09/06/2022 1:00 AM EDT) Glucose 95 65 - 199 mg/dL [facility] Comment:Diabetes: >=200 mg/d L plus symptoms Blood Urea Nitrogen 21(H) 8 - 18 mg/dL [facility] Creatinine 0.49(L) 0.70 - 1.20 mg/dL [facility] Sodium 139 135 - 145 mmol/L [facility] Potassium 4.3 3.5 - 5.0 mmol/L [facility] Comment: Please note: ??Patients with WBC >100,000 may have falsely elevated Potassium levels. ??For accurate Potassium quantification in these patients send serum separator tube (gold top) for subsequent determinations. ??Contact the Clinical Chemistry Laboratory if there are any questions. Chloride 104 98 - 107 mmol/L [facility] Carbon Dioxide 28 22 - 31 mmol/L [facility] Anion Gap 7 5 - 15 mmol/L [facility] Calcium 9.5 8.5 - 10.5 mg/dL [facility] Est Glomerular Filtration Rate 106 >=60 mL/min/1. 73 m?? [facility] Comment: This patient's estimated GFR [...] Pascal MD CHEMISTRY ORDERABLES Performing Organization Address [facility] Co de Phone Number [facility] [place] [address] * Phosphorus (09/06/2022 1:00 AM EDT) Phosphorus 3.6 2.5 - 4.5 mg/dL [facility] Blood 09/06/2022 1:00 AM EDT 09/06/2022 1:34 AM EDT Narrative Resulting Agency Comment Spec In Lab Richard Pascal MD CHEMISTRY ORDERABLES Performing Organization Address City/[facility] Co de Phone Number [facility] [place] [address] * Magnesium (09/06/2022 1:00 AM EDT) Magnesium 0.81 0.69 - 1.07 mmol/L [facility] Blood 09/06/2022 1:00 AM EDT 09/06/2022 1:34 AM EDT Narrative Resulting Agency Comment Spec In Lab Richard Pascal MD CHEMISTRY ORDERABLES Performing Organization Address City/[facility]/ZIP Co de Phone Number [facility] [place] [address] * POCT Glucose (09/05/2022 11:29 PM EDT) Glucose, POC 94 65 - 199 mg/dL [facility] Comment: Supplemental ranges: <140 mg/dL before meals <180 mg/dL all other times of the day Blood 09/05/2022 11:2 9 PM EDT 09/05/2022 11:29 PM EDT Richard Pascal MD POINT OF CARE TEST O RDERABLES [facility] [place] [address] * POCT Glucose (09/05/2022 10:20 PM EDT) Glucose, POC 106 65 - 199 mg/dL [facility] Comment: Supplemental ranges: <140 mg/dL before meals <180 mg/dL all other times of the day Blood 09/05/2022 10:2 0 PM EDT 09/05/2022 10:20 PM EDT Richard Pascal MD POINT OF CARE TEST O RDERABLES Performing Organization Address City/[facility]/ZIP Co de Phone Number [facility] [place] [address] * (ABNORMAL) POCT Glucose (09/05/2022 7:17 PM EDT) Glucose, POC 225(H) 65 - 199 mg/dL [facility] Comment: Supplemental ranges: <140 mg/dL before meals <180 mg/dL all other times of the day Blood 09/05/2022 7:17 PM EDT 09/05/2022 7:17 PM EDT Richard Pascal MD POINT OF CARE TEST O RDERABLES [facility] [place] [address] * POCT Glucose (09/05/2022 3:54 PM EDT) Glucose, POC 142 65 - 199 mg/dL [facility] Comment: Supplemental ranges: <140 mg/dL before meals <180 mg/dL all other times of the day Blood 09/05/2022 3:54 PM EDT 09/05/2022 3:54 PM EDT Richard Pascal MD POINT OF CARE TEST O GABRIELLA Performing Organization Address City/[facility] Co de Phone Number [facility] [place] [address] * POCT Glucose (09/05/2022 12:44 PM EDT) Glucose, POC 142 65 - 199 mg/dL [facility] Comment: Supplemental ranges: <140 mg/dL before meals <180 mg/dL all other times of the day Blood 09/05/2022 12:4 4 PM EDT 09/05/2022 12:44 PM EDT Richard Pascal MD POINT OF CARE TEST O GABRIELLA Performing Organization Address [facility] Co de Phone Number [facility] [place] [address] * POCT Glucose (09/05/2022 9:51 AM EDT) Glucose, POC 173 65 - 199 mg/dL [facility] Comment: Supplemental ranges: <140 mg/dL before meals <180 mg/dL all other times of the day Blood 09/05/2022 9:51 AM EDT 09/05/2022 9:51 AM EDT Richard Pascal MD POINT OF CARE TEST O HUGHERAREYMUNDO Performing Organization Address [facility] Co de Phone Number [facility] [place] [address] * XR Chest One View (09/05/2022 9:24 AM EDT) Anatomical Region Laterality Modality Chest N/A Digital Radiogra phy Impressions 09/05/2022 3:43 PM EDT 1. Reposition enteric tube now extending below the diaphragm and included zliue-rs-zmoa. 2. Similar appearance of elevated right hemidiaphragm and linear/patchy bibasilar opacities which may represent atelectasis or possibly aspiration. Thank you for letting us participate in the care of this patient. ??If you are a health care provider and have any questions regarding this report, please contact the number below. ??For patients who have questions please contact the health infant childcare provider that requested your imaging first. ? Electronically signed by: AUDI PERDOMO MD, [facility] ??([phone]), at 09/05/2022 3:43 PM Narrative 09/05/2022 3:43 [...] now extending below the diaphragm and included [id number]. Similar appearance of mild elevation of the [...] tube now extendingbelow the diaphragm and included okozb-sh-iiss. Similar appearance of mild elevation of the right hemidiaphragm withstreaky right basilar opacities and some mild patchy opacities at the left lungbase. No new focal airspace opacity. No appreciable pleural fluid collection. No pneumothorax. Cardiomediastinal silhouette is unchanged. No evidence of pulmonary edema. No acute osseous abnormality. IMPRESSION 1. Reposition enteric tube now extending below the diaphragm andincluded vmynb-[id number]. 2. Similar appearance of elevated right hemidiaphragm and linear/patchy bibasilar opacities which may represent atelectasis or possiblyaspiration. Thank you for letting us participate in the care of this patient. If youare a health care provider and have any questions regarding this report,please contact the number below. For patients who have questions please contactthe health infant childcare provider that requested your imaging first. Electronically signed by: AUDI PERDOMO MD, [facility]([phone]), at 09/05/2022 3:43 PM Richard Pascal MD IMG DX ORDERABLES * POCT Glucose (09/05/2022 4:10 AM EDT) Glucose, POC 162 65 - 199 mg/dL [facility] Comment: Supplemental ranges: <140 mg/dL before meals <180 mg/dL all other times of the day Blood 09/05/2022 4:10 AM EDT 09/05/2022 4:10 AM EDT Tenisha Sandy MD POINT OF CARE MARIANELA T ORDERABLES [facility] [place] [address] * POCT Glucose (09/05/2022 1:18 AM EDT) Glucose, POC 98 65 - 199 mg/dL [facility] Comment: Supplemental ranges: <140 mg/dL before meals <180 mg/dL all other times of the day Blood 09/05/2022 1:18 AM EDT 09/05/2022 1:18 AM EDT Tenisha Sandy MD POINT OF CARE MARIANELA T ORDERABLES Performing Organization Address City/[facility]/[place] [address] * Differential, Automated (09/05/2022 1:06 AM EDT) Neutrophil % 38.7 % [facility] Neutrophil Absolute 1.88 1.70 - 6.10 x10(3)/[facility] Lymph % 35.9 % [facility] Lymphocytes Abs 1.8 0.9 - 3.2 x10(3)/[facility] Monocyte % 14.2 % [facility] Monocyte Abs 0.7 0.3 - 0.9 x10(3)/[facility] Eos % 9.2 % [facility] Eosinophils Abs 0.4 0.0 - 0.4 x10(3)/[facility] Basophil % 1.6 % [facility] Baso Absolute 0.1 0.0 - 0.1 x10(3)/[facility] Immature Gran % 0.40 % [facility] Comment: Immature granulocytes(IG's)percentage and absolute count will include metamyelocytes, myelocytes, and promyelocytes. Blood smears from CBCs yielding IG's will be scanned manually for concordance. If this scan disagrees with the automated IG or if promyelocytes are noted, a manual differential will be performed. Immature Gran Absolute 0.02 0.00 - 0.04 x10(3)/[facility] Blood 09/05/2022 1:06 AM EDT 09/05/2022 1:20 AM EDT Narrative Resulting Agency Comment Spec In Lab Tyler Cobb MD HEMATOLOGY ORDERABLE S Performing Organization Address [facility]/[place] [address] * (ABNORMAL) Hemogram (09/05/2022 1:06 AM EDT) White Blood Cell 4.9 4.0 - 9.5 x10(3)/mc L [facility] Red Blood Cell 3.93(L) 4.00 - 5.21 x10(6)/mc L [facility] Comment:Dimorphic RBC popula tion. Hemoglobin 8.7(L) 11.7 - 15.5 g/dL [facility] Hematocrit 29.0(L) 35.7 - 45.8 % [facility] Mean Cell Volume 73.8(L) 82.6 - 94.4 fL [facility] Mean Cell Hemoglobin 22.1(L) 27.1 - 32.0 pg [facility] Mean Cell Hemoglobin Concentration 30.0(L) 31.7 - 35.0 g/dL [facility] Platelet 314 145 - 357 x10(3)/mc L [facility] RDW Standard Deviation Not Measured 37.0 - 46.0 fL [facility] RDW coefficient of variation Not Measured 11.5 - 14.1 % [facility] Mean Platelet Volume 9.8 7.6 - 12.9 fL [facility] NRBC% auto 0.0 % [facility] NRBC Absolute 0.000 0.000 - 0.000 x10(3)/ L [facility] Blood 09/05/2022 1:06 AM EDT 09/05/2022 1:20 AM EDT Narrative Resulting Agency Comment Spec In Lab Tyler Cobb MD HEMATOLOGY ORDERABLE S [facility] [place] [address] * (ABNORMAL) Basic Metabolic Panel (non-fasting) (09/05/2022 1:06 AM EDT) Glucose 95 65 - 199 mg/dL [facility] Comment:Diabetes: >=200 mg/d L plus symptoms Blood Urea Nitrogen 21(H) 8 - 18 mg/dL [facility] Creatinine 0.49(L) 0.70 - 1.20 mg/dL [facility] Sodium 140 135 - 145 mmol/L [facility] Potassium 3.8 3.5 - 5.0 mmol/L [facility] Comment: Please note: ??Patients with WBC >100,000 may have falsely elevated Potassium levels. ??For accurate Potassium quantification in these patients send serum separator tube (gold top) for subsequent determinations. ??Contact the Clinical Chemistry Laboratory if there are any questions. Chloride 103 98 - 107 mmol/L [facility] Carbon Dioxide 28 22 - 31 mmol/L [facility] Anion Gap 9 5 - 15 mmol/L [facility] Calcium 9.5 8.5 - 10.5 mg/dL [facility] Est Glomerular Filtration Rate 106 >=60 mL/min/1. 73 m?? [facility] Comment: This patient's estimated GFR [...] In Lab Richard Pascal MD CHEMISTRY ORDERABLES [facility] [place] [address] * Phosphorus (09/05/2022 1:06 AM EDT) Phosphorus 3.9 2.5 - 4.5 mg/dL [facility] Blood 09/05/2022 1:06 AM EDT 09/05/2022 1:20 AM EDT Narrative Resulting Agency Comment Spec In Lab Richard Pascal MD CHEMISTRY ORDERABLES [facility] [place] [address] * Magnesium (09/05/2022 1:06 AM EDT) Magnesium 0.91 0.69 - 1.07 mmol/L [facility] Blood 09/05/2022 1:06 AM EDT 09/05/2022 1:20 AM EDT Narrative Resulting Agency Comment Spec In Lab Richard Pascal MD CHEMISTRY ORDERABLES Performing Organization Address [facility] Co de Phone Number [facility] [place] [address] * POCT Glucose (09/04/2022 10:16 PM EDT) Glucose, POC 138 65 - 199 mg/dL [facility] Comment: Supplemental ranges: <140 mg/dL before meals <180 mg/dL all other times of the day Blood 09/04/2022 10:1 6 PM EDT 09/04/2022 10:16 PM EDT Tenisha Sandy MD POINT OF CARE MARIANELA T ORDERABLES Performing Organization Address [facility] de Phone Number [facility] [place] [address] * XR Abdomen 1 view (Generic) (09/04/2022 [...] who have questions please contact the health infant childcare provider that requested your imaging first. ? Electronically signed by: Jagdeep Lee MD, [facility] ([phone]), at 09/04/2022 10:35 PM Narrative 09/04/2022 10:35 [...] patients who have questions please contactthe health infant childcare provider that requested your imaging first. Electronically signed by: Jagdeep Lee MD, [facility]([phone]), at 09/04/2022 10:35 PM Tenisha Sandy MD [...] who have questions please contact the health infant childcare provider that requested your imaging first. ? Electronically signed by: Jagdeep Lee MD, [facility] ([phone]), at 09/04/2022 10:35 PM Narrative 09/04/2022 10:35 [...] bowel. Procedure Note Jagdeep Lee MD - 04/28/2023 EXAMINATION: XR CHEST ONE VIEW, XR ABDOMEN [...] patients who have questions please contactthe health infant childcare provider that requested your imaging first. Electronically signed by: Jagdeep Lee MD, [facility]([phone]), at 09/04/2022 10:35 PM Tenisha Sandy MD IMG DX ORDERABLES * POCT Glucose (09/04/2022 8:49 PM EDT) [facility] Signature Glucose, POC 73 65 - 199 mg/dL [facility] Comment: Supplemental ranges: <140 mg/dL before meals <180 mg/dL all other times of the day Blood 09/04/2022 8:49 PM EDT 09/04/2022 8:49 PM EDT Tenisha Sandy MD POINT OF CARE MARIANELA T ORDERABLES Performing Organization Address City/[facility]/ZIP Co de Phone Number [facility] [place] [address] * POCT Glucose (09/04/2022 5:20 PM EDT) Glucose, POC 136 65 - 199 mg/dL [facility] Comment: Supplemental ranges: <140 mg/dL before meals <180 mg/dL all other times of the day Blood 09/04/2022 5:20 PM EDT 09/04/2022 5:20 PM EDT Tenisha Sandy MD POINT OF CARE MARIANELA T ORDERABLES Performing Organization Address [facility] Co de Phone Number [facility] [place] [address] * (ABNORMAL) POCT Glucose (09/04/2022 4:39 PM EDT) Glucose, POC 64(L) 65 - 199 mg/dL [facility] Comment: Supplemental ranges: <140 mg/dL before meals <180 mg/dL all other times of the day Blood 09/04/2022 4:39 PM EDT 09/04/2022 4:39 PM EDT Tenisha Sandy MD POINT OF CARE MARIANELA T ORDERABLES Performing Organization Address City/[facility]/ZIP Co de Phone Number [facility] [place] [address] * POCT Glucose (09/04/2022 3:21 PM EDT) Glucose, POC 68 65 - 199 mg/dL [facility] Comment: Supplemental ranges: <140 mg/dL before meals <180 mg/dL all other times of the day Blood 09/04/2022 3:21 PM EDT 09/04/2022 3:21 PM EDT Tenisha Sandy MD POINT OF CARE MARIANELA T ORDERABLES [facility] [place] [address] * POCT Glucose (09/04/2022 11:07 AM EDT) Glucose, POC 107 65 - 199 mg/dL [facility] Comment: Supplemental ranges: <140 mg/dL before meals <180 mg/dL all other times of the day Blood 09/04/2022 11:0 7 AM EDT 09/04/2022 11:07 AM EDT Tenisha Sandy MD POINT OF CARE MARIANELA T ORDERABLES Performing Organization Address [facility] Co de Phone Number [facility] [place] [address] * XR Fluoro Barium Swallow (Modified/Video Swallow [...] who have questions please contact the health infant childcare provider that requested your imaging first. ? Electronically signed by: Alfonso Adams MD, [facility] ([phone]), at 09/04/2022 10:57 AM Narrative 09/04/2022 10:57 [...] patients who have questions please contactthe health infant childcare provider that requested your imaging first. Electronically signed by: Alfonso Adams MD, [facility]([phone]), at 09/04/2022 10:57 AM Tenisha Sandy MD IMG FLUORO ORDERA BLES * POCT Glucose (09/04/2022 7:18 AM EDT) Glucose, POC 106 65 - 199 mg/dL [facility] Comment: Supplemental ranges: <140 mg/dL before meals <180 mg/dL all other times of the day Blood 09/04/2022 7:18 AM EDT 09/04/2022 7:18 AM EDT Tenisha Sandy MD POINT OF CARE MARIANELA T ORDERABLES Performing Organization Address [facility] Co de Phone Number [facility] [place] [address] * POCT Glucose (09/04/2022 3:35 AM EDT) Glucose, POC 107 65 - 199 mg/dL [facility] Comment: Supplemental ranges: <140 mg/dL before meals <180 mg/dL all other times of the day Blood 09/04/2022 3:35 AM EDT 09/04/2022 3:35 AM EDT Tenisha Sandy MD POINT OF CARE MARIANELA T ORDERABLES Performing Organization Address City/State/[facility] [place] [address] * Differential, Automated (09/04/2022 12:26 AM EDT) Neutrophil % 60.2 % [facility] Neutrophil Absolute 4.05 1.70 - 6.10 x10(3)/[facility] Lymph % 27.4 % [facility] Lymphocytes Abs 1.8 0.9 - 3.2 x10(3)/[facility] Monocyte % 5.4 % [facility] Monocyte Abs 0.4 0.3 - 0.9 x10(3)/[facility] Eos % 5.4 % [facility] Eosinophils Abs 0.4 0.0 - 0.4 x10(3)/[facility] Basophil % 1.3 % [facility] Baso Absolute 0.1 0.0 - 0.1 x10(3)/[facility] Immature Gran % 0.30 % [facility] Comment: Immature granulocytes(IG's)percentage and absolute count will include metamyelocytes, myelocytes, and promyelocytes. Blood smears from CBCs yielding IG's will be scanned manually for concordance. If this scan disagrees with the automated IG or if promyelocytes are noted, a manual differential will be performed. Immature Gran Absolute 0.02 0.00 - 0.04 x10(3)/[facility] Blood 09/04/2022 12:2 6 AM EDT 09/04/2022 12:38 AM EDT Narrative Resulting Agency Comment Spec In Lab Tyler Cobb MD [place] [address] * (ABNORMAL) Hemogram (09/04/2022 12:26 AM EDT) Pathologist [facility] White Blood Cell 6.7 4.0 - 9.5 x10(3)/mc L [facility] Red Blood Cell 3.83(L) 4.00 - 5.21 x10(6)/[facility] Comment:Dimorphic RBC popula tion. Hemoglobin 8.5(L) 11.7 - 15.5 g/dL [facility] Hematocrit 28.1(L) 35.7 - 45.8 % [facility] Mean Cell Volume 73.4(L) 82.6 - 94.4 fL [facility] Mean Cell Hemoglobin 22.2(L) 27.1 - 32.0 pg [facility] Mean Cell Hemoglobin Concentration 30.2(L) 31.7 - 35.0 g/dL [facility] Platelet 300 145 - 357 x10(3)/mc L [facility] RDW Standard Deviation Not Measured 37.0 - 46.0 fL [facility] RDW coefficient of variation Not Measured 11.5 - 14.1 % [facility] Mean Platelet Volume 9.9 7.6 - 12.9 fL [facility] NRBC% auto 0.0 % [facility] NRBC Absolute 0.000 0.000 - 0.000 x10(3)/ L [facility] Blood 09/04/2022 12:2 6 AM EDT 09/04/2022 12:38 AM EDT Narrative Resulting Agency Comment Spec In Lab Tyler Cobb MD HEMATOLOGY ORDERABLE S [facility] [place] [address] * (ABNORMAL) Basic Metabolic Panel (non-fasting) (09/04/2022 12:26 AM EDT) Glucose 131 65 - 199 mg/dL [facility] Comment:Diabetes: >=200 mg/d L plus symptoms Blood Urea Nitrogen 30(H) 8 - 18 mg/dL [facility] Creatinine 0.53(L) 0.70 - 1.20 mg/dL [facility] Sodium 141 135 - 145 mmol/L [facility] Potassium 4.3 3.5 - 5.0 mmol/L [facility] Comment: Please note: ??Patients with WBC >100,000 may have falsely elevated Potassium levels. ??For accurate Potassium quantification in these patients send serum separator tube (gold top) for subsequent determinations. ??Contact the Clinical Chemistry Laboratory if there are any questions. Chloride 104 98 - 107 mmol/L [facility] Carbon Dioxide 29 22 - 31 mmol/L [facility] Anion Gap 8 5 - 15 mmol/L [facility] Calcium 9.4 8.5 - 10.5 mg/dL [facility] Est Glomerular Filtration Rate 105 >=60 mL/min/1. 73 m?? [facility] Comment: This patient's estimated GFR [...] In Lab Richard Pascal MD CHEMISTRY ORDERABLES [facility] [place] [address] * Phosphorus (09/04/2022 12:26 AM EDT) Phosphorus 3.2 2.5 - 4.5 mg/dL [facility] Blood 09/04/2022 12:2 6 AM EDT 09/04/2022 12:38 AM EDT Narrative Resulting Agency Comment Spec In Lab Richard Pascal MD CHEMISTRY ORDERABLES [facility] [place] [address] * Magnesium (09/04/2022 12:26 AM EDT) Magnesium 0.88 0.69 - 1.07 mmol/L [facility] Blood 09/04/2022 12:2 6 AM EDT 09/04/2022 12:38 AM EDT Narrative Resulting Agency Comment Spec In Lab Richard Pascal MD CHEMISTRY ORDERABLES Performing Organization Address [facility] Co de Phone Number [facility] [place] [address] * POCT Glucose (09/04/2022 12:19 AM EDT) Glucose, POC 125 65 - 199 mg/dL [facility] Comment: Supplemental ranges: <140 mg/dL before meals <180 mg/dL all other times of the day Blood 09/04/2022 12:1 9 AM EDT 09/04/2022 12:19 AM EDT Tenisha Sandy MD POINT OF CARE MARIANELA T ORDERABLES Performing Organization Address [facility] Co de Phone Number [facility] [place] [address] * POCT Glucose (09/03/2022 7:30 PM EDT) Glucose, POC 166 65 - 199 mg/dL [facility] Comment: Supplemental ranges: <140 mg/dL before meals <180 mg/dL all other times of the day Blood 09/03/2022 7:30 PM EDT 09/03/2022 7:30 PM EDT Tenisha Sandy MD POINT OF CARE MARIANELA T ORDERABLES Performing Organization Address [facility] Co de Phone Number [facility] [place] [address] * (ABNORMAL) POCT Glucose (09/03/2022 4:00 PM EDT) Glucose, POC 207(H) 65 - 199 mg/dL [facility] Comment: Supplemental ranges: <140 mg/dL before meals <180 mg/dL all other times of the day Blood 09/03/2022 4:00 PM EDT 09/03/2022 4:00 PM EDT Tenisha Sandy MD POINT OF CARE MARIANELA T ORDERABLES Performing Organization Address City/[facility]/ZIP Co de Phone Number [facility] [place] [address] * (ABNORMAL) POCT Glucose (09/03/2022 12:43 PM EDT) Glucose, POC 207(H) 65 - 199 mg/dL [facility] Comment: Supplemental ranges: <140 mg/dL before meals <180 mg/dL all other times of the day Blood 09/03/2022 12:4 3 PM EDT 09/03/2022 12:43 PM EDT Tenisha Sandy MD POINT OF CARE MARIANELA T ORDERABLES Performing Organization Address [facility] Co de Phone Number [facility] [place] [address] * POCT Glucose (09/03/2022 7:48 AM EDT) Glucose, POC 173 65 - 199 mg/dL [facility] Comment: Supplemental ranges: <140 mg/dL before meals <180 mg/dL all other times of the day Blood 09/03/2022 7:48 AM EDT 09/03/2022 7:48 AM EDT Tenisha Sandy MD POINT OF CARE MARIANELA T ORDERABLES Performing Organization Address [facility] Co de Phone Number [facility] [place] [address] * POCT Glucose (09/03/2022 4:52 AM EDT) Glucose, POC 91 65 - 199 mg/dL [facility] Comment: Supplemental ranges: <140 mg/dL before meals <180 mg/dL all other times of the day Blood 09/03/2022 4:52 AM EDT 09/03/2022 4:52 AM EDT Tenisha Sandy MD POINT OF CARE MARIANELA T ORDERABLES Performing Organization Address City/[facility]/ZIP Co de Phone Number [facility] [place] [address] * Differential, Automated (09/03/2022 12:40 AM EDT) Pathologist [facility] [place] Neutrophil % 42.9 % [facility] Neutrophil Absolute 2.19 1.70 - 6.10 x10(3)/[facility] LABORATORY Lymph % 38.0 % [facility] Lymphocytes Abs 1.9 0.9 - 3.2 x10(3)/[facility] LABORATORY Monocyte % 11.6 % [facility] Monocyte Abs 0.6 0.3 - 0.9 x10(3)/[facility] LABORATORY Eos % 5.7 % [facility] Eosinophils Abs 0.3 0.0 - 0.4 x10(3)/[facility] LABORATORY Basophil % 1.6 % [facility] Baso Absolute 0.1 0.0 - 0.1 x10(3)/[facility] LABORATORY Immature Gran % 0.20 % [facility] Comment: Immature granulocytes(IG's)percentage and absolute count will include metamyelocytes, myelocytes, and promyelocytes. Blood smears from CBCs yielding IG's will be scanned manually for concordance. If this scan disagrees with the automated IG or if promyelocytes are noted, a manual differential will be performed. Immature Gran Absolute 0.01 0.00 - 0.04 x10(3)/[facility] LABORATORY Blood 09/03/2022 12:4 0 AM EDT 09/03/2022 12:51 AM EDT Narrative Resulting Agency Comment Spec In Lab Tyler Cobb MD HEMATOLOGY ORDERABLE S [facility] [place] [address] * (ABNORMAL) Hemogram (09/03/2022 12:40 AM EDT) Pathologist [facility] [place] White Blood Cell 5.1 4.0 - 9.5 x10(3)/mc L [facility] Red Blood Cell 3.75(L) 4.00 - 5.21 x10(6)/[facility] LABORATORY Comment:Dimorphic RBC popula tion. Hemoglobin 8.4(L) 11.7 - 15.5 g/dL [facility] Hematocrit 27.1(L) 35.7 - 45.8 % [facility] Mean Cell Volume 72.3(L) 82.6 - 94.4 fL [facility] Mean Cell Hemoglobin 22.4(L) 27.1 - 32.0 pg [facility] Mean Cell Hemoglobin Concentration 31.0(L) 31.7 - 35.0 g/dL [facility] Platelet 305 145 - 357 x10(3)/mc L [facility] RDW Standard Deviation Not Measured 37.0 - 46.0 fL [facility] RDW coefficient of variation Not Measured 11.5 - 14.1 % [facility] Mean Platelet Volume 9.8 7.6 - 12.9 fL [facility] NRBC% auto 0.0 % [facility] NRBC Absolute 0.000 0.000 - 0.000 x10(3)/mc L [facility] Blood 09/03/2022 12:4 0 AM EDT 09/03/2022 12:51 AM EDT Narrative Resulting Agency Comment Spec In Lab Tyler Cobb MD HEMATOLOGY ORDERABLE S [facility] [place] [address] * (ABNORMAL) Basic Metabolic Panel (non-fasting) (09/03/2022 12:40 AM EDT) Glucose 107 65 - 199 mg/dL [facility] Comment:Diabetes: >=200 mg/d L plus symptoms Blood Urea Nitrogen 28(H) 8 - 18 mg/dL [facility] Creatinine 0.49(L) 0.70 - 1.20 mg/dL [facility] Sodium 138 135 - 145 mmol/L [facility] Potassium 4.1 3.5 - 5.0 mmol/L [facility] Comment: Please note: ??Patients with WBC >100,000 may have falsely elevated Potassium levels. ??For accurate Potassium quantification in these patients send serum separator tube (gold top) for subsequent determinations. ??Contact the Clinical Chemistry Laboratory if there are any questions. Chloride 102 98 - 107 mmol/L [facility] Carbon Dioxide 29 22 - 31 mmol/L [facility] Anion Gap 7 5 - 15 mmol/L [facility] Calcium 9.2 8.5 - 10.5 mg/dL [facility] Est Glomerular Filtration Rate 106 >=60 mL/min/1. 73 m?? [facility] Comment: This patient's estimated GFR [...] Pascal MD CHEMISTRY ORDERABLES Performing Organization Address City/[facility]/ZIP Co de Phone Number [facility] [place] [address] * Phosphorus (09/03/2022 12:40 AM EDT) Phosphorus 3.4 2.5 - 4.5 mg/dL [facility] Blood 09/03/2022 12:4 0 AM EDT 09/03/2022 12:51 AM EDT Narrative Resulting Agency Comment Spec In Lab Richard Pascal MD CHEMISTRY ORDERABLES Performing Organization Address [facility]/ZIP Co de Phone Number [facility] [place] [address] * Magnesium (09/03/2022 12:40 AM EDT) Magnesium 0.96 0.69 - 1.07 mmol/L [facility] Blood 09/03/2022 12:4 0 AM EDT 09/03/2022 12:51 AM EDT Narrative Resulting Agency Comment Spec In Lab Richard Pascal MD CHEMISTRY ORDERABLES [facility] [place] [address] * POCT Glucose (09/02/2022 11:05 PM EDT) Glucose, POC 106 65 - 199 mg/dL [facility] Comment: Supplemental ranges: <140 mg/dL before meals <180 mg/dL all other times of the day Blood 09/02/2022 11:0 5 PM EDT 09/02/2022 11:05 PM EDT Tenisha Sandy MD POINT OF CARE MARIANELA T ORDERABLES Performing Organization Address [facility] Co de Phone Number [facility] [place] [address] * POCT Glucose (09/02/2022 8:05 PM EDT) Glucose, POC 107 65 - 199 mg/dL [facility] Comment: Supplemental ranges: <140 mg/dL before meals <180 mg/dL all other times of the day Blood 09/02/2022 8:05 PM EDT 09/02/2022 8:05 PM EDT Tenisha Sandy MD POINT OF CARE MARIANELA T ORDERABLES Performing Organization Address City/[facility]/ZIP Co de Phone Number [facility] [place] [address] * POCT Glucose (09/02/2022 4:22 PM EDT) Glucose, POC 183 65 - 199 mg/dL [facility] Comment: Supplemental ranges: <140 mg/dL before meals <180 mg/dL all other times of the day Blood 09/02/2022 4:22 PM EDT 09/02/2022 4:22 PM EDT Tenisha Sandy MD POINT OF CARE MARIANELA T ORDERABLES [facility] [place] [address] * POCT Glucose (09/02/2022 12:22 PM EDT) Glucose, POC 194 65 - 199 mg/dL [facility] Comment: Supplemental ranges: <140 mg/dL before meals <180 mg/dL all other times of the day Blood 09/02/2022 12:2 2 PM EDT 09/02/2022 12:22 PM EDT Tenisha Sandy MD POINT OF CARE MARIANELA T ORDERABLES [facility] [place] [address] * POCT Glucose (09/02/2022 7:49 AM EDT) Glucose, POC 141 65 - 199 mg/dL [facility] Comment: Supplemental ranges: <140 mg/dL before meals <180 mg/dL all other times of the day Blood 09/02/2022 7:49 AM EDT 09/02/2022 7:49 AM EDT Tenisha Sandy MD POINT OF CARE MARIANELA T ORDERABLES [facility] [place] [address] * POCT Glucose (09/02/2022 5:43 AM EDT) Glucose, POC 102 65 - 199 mg/dL [facility] Comment: Supplemental ranges: <140 mg/dL before meals <180 mg/dL all other times of the day Blood 09/02/2022 5:43 AM EDT 09/02/2022 5:43 AM EDT Tenisha Sandy MD POINT OF CARE MARIANELA T ORDERABLES [facility] [place] [address] * POCT Glucose (09/02/2022 3:44 AM EDT) Pathologist [facility] [place] Glucose, POC 112 65 - 199 mg/dL [facility] Comment: Supplemental ranges: <140 mg/dL before meals <180 mg/dL all other times of the day Blood 09/02/2022 3:44 AM EDT 09/02/2022 3:44 AM EDT Tenisha Sandy MD POINT OF CARE MARIANELA T ORDERABLES Performing Organization Address [facility] Co de Phone Number [facility] [place] [address] * (ABNORMAL) Reticulocyte Count (09/02/2022 1:05 AM EDT) [facility] Reticulocyte % 2.2 0.7 - 2.5 % [facility] Retic Abs # 0.080 0.020 - 0.110 x10(6)/[facility] LABORATORY Immature Retic% 45.2(H) 0.5 - 13.8 % [facility] Reticulated Hgb 22.9(L) 29.8 - 39.4 pg [facility] Blood Venous Draw / Unknown 09/02/2022 1:05 AM EDT 09/02/2022 1:19 AM EDT Narrative Resulting Agency Comment Spec In Lab Irwin Jones MD HEMATOLOGY ORDERAB LES Performing Organization Address [facility] Co de Phone Number [facility] [place] [address] * Differential, Automated (09/02/2022 1:05 AM EDT) [facility] Neutrophil % 48.4 % [facility] Neutrophil Absolute 2.83 1.70 - 6.10 x10(3)/[facility] LABORATORY Lymph % 34.6 % [facility] Lymphocytes Abs 2.0 0.9 - 3.2 x10(3)/[facility] LABORATORY Monocyte % 10.4 % [facility] LABORAT[facility] Monocyte Abs 0.6 0.3 - 0.9 x10(3)/[facility] LABORATORY Eos % 4.8 % [facility] Eosinophils Abs 0.3 0.0 - 0.4 x10(3)/[facility] LABORATORY Basophil % 1.5 % [facility] Baso Absolute 0.1 0.0 - 0.1 x10(3)/[facility] LABORATORY Immature Gran % 0.30 % [facility] Comment: Immature granulocytes(IG's)percentage and absolute count will include metamyelocytes, myelocytes, and promyelocytes. Blood smears from CBCs yielding IG's will be scanned manually for concordance. If this scan disagrees with the automated IG or if promyelocytes are noted, a manual differential will be performed. Immature Gran Absolute 0.02 0.00 - 0.04 x10(3)/[facility] LABORATORY Blood 09/02/2022 1:05 AM EDT 09/02/2022 1:19 AM EDT Narrative Resulting Agency Comment Spec In Lab Tyler Cobb MD HEMATOLOGY ORDERABLE S Performing Organization Address City/State/[facility] Co de Phone Number [facility] [place] [address] * (ABNORMAL) Hemogram (09/02/2022 1:05 AM EDT) White Blood Cell 5.9 4.0 - 9.5 x10(3)/mc L [facility] Red Blood Cell 3.81(L) 4.00 - 5.21 x10(6)/mc L [facility] Comment: CORRECTION: ADDING COMMENT : Dimorphic RBC population. Corrected from 3.81 x10(6)/mcL [LOW] on 09/02/22 11:26:40 EDT by Jigar Palmer Hemoglobin 8.3(L) 11.7 - 15.5 g/dL [facility] Hematocrit 27.7(L) 35.7 - 45.8 % [facility] Mean Cell Volume 72.7(L) 82.6 - 94.4 fL [facility] Mean Cell Hemoglobin 21.8(L) 27.1 - 32.0 pg [facility] Mean Cell Hemoglobin Concentration 30.0(L) 31.7 - 35.0 g/dL [facility] Platelet 344 145 - 357 x10(3)/ L [facility] RDW Standard Deviation Not Measured 37.0 - 46.0 fL [facility] RDW coefficient of variation Not Measured 11.5 - 14.1 % [facility] Mean Platelet Volume 9.8 7.6 - 12.9 fL [facility] NRBC% auto 0.0 % [facility] NRBC Absolute 0.000 0.000 - 0.000 x10(3)/mc L [facility] Blood 09/02/2022 1:05 AM EDT 09/02/2022 1:19 AM EDT Narrative Resulting Agency Comment Spec In Lab Tyler Cobb MD HEMATOLOGY ORDERABLE S [facility] [place] [address] * (ABNORMAL) Basic Metabolic Panel (non-fasting) (09/02/2022 1:05 AM EDT) Glucose 114 65 - 199 mg/dL [facility] Comment:Diabetes: >=200 mg/d L plus symptoms Blood Urea Nitrogen 30(H) 8 - 18 mg/dL [facility] Creatinine 0.52(L) 0.70 - 1.20 mg/dL [facility] Sodium 136 135 - 145 mmol/L [facility] Potassium 4.4 3.5 - 5.0 mmol/L [facility] Comment: Please note: ??Patients with WBC >100,000 may have falsely elevated Potassium levels. ??For accurate Potassium quantification in these patients send serum separator tube (gold top) for subsequent determinations. ??Contact the Clinical Chemistry Laboratory if there are any questions. Chloride 100 98 - 107 mmol/L [facility] Carbon Dioxide 30 22 - 31 mmol/L [facility] Anion Gap 6 5 - 15 mmol/L [facility] Calcium 9.5 8.5 - 10.5 mg/dL [facility] Est Glomerular Filtration Rate 105 >=60 mL/min/1. 73 m?? [facility] Comment: This patient's estimated GFR [...] In Lab Richard Pascal MD CHEMISTRY ORDERABLES [facility] [place] [address] * Phosphorus (09/02/2022 1:05 AM EDT) Phosphorus 3.9 2.5 - 4.5 mg/dL [facility] Blood 09/02/2022 1:05 AM EDT 09/02/2022 1:19 AM EDT Narrative Resulting Agency Comment Spec In Lab Richard Pascal MD CHEMISTRY ORDERABLES Performing Organization Address City/[facility]/ZIP Co de Phone Number [facility] [place] [address] * Magnesium (09/02/2022 1:05 AM EDT) Magnesium 0.87 0.69 - 1.07 mmol/L [facility] Blood 09/02/2022 1:05 AM EDT 09/02/2022 1:19 AM EDT Narrative Resulting Agency Comment Spec In Lab Richard Pascal MD CHEMISTRY ORDERABLES Performing Organization Address City/[facility]/ZIP Co de Phone Number [facility] [place] [address] * POCT Glucose (09/02/2022 12:51 AM EDT) Glucose, POC 110 65 - 199 mg/dL [facility] Comment: Supplemental ranges: <140 mg/dL before meals <180 mg/dL all other times of the day Blood 09/02/2022 12:5 1 AM EDT 09/02/2022 12:51 AM EDT Tenisha Sadny MD POINT OF CARE MARIANELA T ORDERABLES Performing Organization Address City/[facility] Co de Phone Number [facility] [place] [address] * POCT Glucose (09/01/2022 8:11 PM EDT) Glucose, POC 93 65 - 199 mg/dL [facility] Comment: Supplemental ranges: <140 mg/dL before meals <180 mg/dL all other times of the day Blood 09/01/2022 8:11 PM EDT 09/01/2022 8:11 PM EDT Tenisha Sandy MD POINT OF CARE MARIANELA T ORDERABLES Performing Organization Address [facility] Co de Phone Number [facility] [place] [address] * POCT Glucose (09/01/2022 5:41 PM EDT) Glucose, POC 170 65 - 199 mg/dL [facility] Comment: Supplemental ranges: <140 mg/dL before meals <180 mg/dL all other times of the day Blood 09/01/2022 5:41 PM EDT 09/01/2022 5:41 PM EDT Tenisha Sandy MD POINT OF CARE MARIANELA T ORDERABLES Performing Organization Address City/[facility] Co de Phone Number [facility] [place] [address] * POCT Glucose (09/01/2022 11:33 AM EDT) Glucose, POC 171 65 - 199 mg/dL [facility] Comment: Supplemental ranges: <140 mg/dL before meals <180 mg/dL all other times of the day Blood 09/01/2022 11:3 3 AM EDT 09/01/2022 11:33 AM EDT Tenisha Sandy MD POINT OF CARE MARIANELA T ORDERABLES [facility] [place] [address] * POCT Glucose (09/01/2022 7:55 AM EDT) Glucose, POC 166 65 - 199 mg/dL [facility] Comment: Supplemental ranges: <140 mg/dL before meals <180 mg/dL all other times of the day Blood 09/01/2022 7:55 AM EDT 09/01/2022 7:55 AM EDT Tenisha Sandy MD POINT OF CARE MARIANELA T ORDERABLES Performing Organization Address [facility] Co de Phone Number [facility] [place] [address] * POCT Glucose (09/01/2022 3:29 AM EDT) Glucose, POC 87 65 - 199 mg/dL [facility] Comment: Supplemental ranges: <140 mg/dL before meals <180 mg/dL all other times of the day Blood 09/01/2022 3:29 AM EDT 09/01/2022 3:29 AM EDT Tenisha Sandy MD POINT OF CARE MARIANELA T ORDERABLES Performing Organization Address [facility] Co de Phone Number [facility] [place] [address] * EKG 12 Lead (09/01/2022 2:24 AM EDT) Ventricular rate 80 BPM MUSE SYSTEM Atrial Rate 80 BPM MUSE SYSTEM P-R Interval 150 ms MUSE SYSTEM QRS Duration 76 ms MUSE SYSTEM Q-T Interval 412 ms MUSE SYSTEM QTC Calculated (Bezet) 475 ms MUSE SYSTEM Calculated P [place] 50 degrees MUSE SYSTEM Calculated R [place] 70 degrees MUSE SYSTEM Calculated T [place] 174 degrees MUSE SYSTEM INTERPRETATION Normal sinus [...] Sandy MD ECG ORDERABLES Performing Organization Address City/[facility]/ZIP Co de Phone Number MUSE SYSTEM * Scan, Peripheral Blood (09/01/2022 2:10 AM EDT) Plat estimate Increased [facility] RBC Morphology Abnormal [facility] Macrocyte 1-5 /HPF [facility] Microcyte 6-10 /HPF [facility] Hypochromia Slight [facility] Polychromasia Present >5/HPF [facility] Ovalocytes 1-5 /HPF [facility] Target Cells 1-5 /HPF [facility] Newman Cells 6-10 /HPF [facility] Plat, Giant Less than 1 /HPF [facility] Blood 09/01/2022 2:10 AM EDT 09/01/2022 2:15 AM EDT Narrative Resulting Agency Comment Spec In Lab Tyler Cobb MD HEMATOLOGY ORDERABLE S Performing Organization Address City/[facility]/ZIP Co de Phone Number [facility] [place] [address] * Differential, Automated (09/01/2022 2:10 AM EDT) Neutrophil % 46.0 % [facility] Neutrophil Absolute 2.52 1.70 - 6.10 x10(3)/mcL [facility] Lymph % 37.1 % [facility] Lymphocytes Abs 2.0 0.9 - 3.2 x10(3)/[facility] HOSPITAL LABOR[facility]ORY Monocyte % 10.1 % [facility] IT[facility] Monocyte Abs 0.6 0.3 - 0.9 x10(3)/[facility] HOSPITAL LABOR[facility]ORY Eos % 5.3 % [facility] Eosinophils Abs 0.3 0.0 - 0.4 x10(3)/[facility] LABORATORY Basophil % 1.3 % [facility] Baso Absolute 0.1 0.0 - 0.1 x10(3)/[facility] LABORATORY Immature Gran % 0.20 % [facility] Comment: Immature granulocytes(IG's)percentage and absolute count will include metamyelocytes, myelocytes, and promyelocytes. Blood smears from CBCs yielding IG's will be scanned manually for concordance. If this scan disagrees with the automated IG or if promyelocytes are noted, a manual differential will be performed. Immature Gran Absolute 0.01 0.00 - 0.04 x10(3)/[facility] LABORATORY Blood 09/01/2022 2:10 AM EDT 09/01/2022 2:15 AM EDT Narrative Resulting Agency Comment Spec In Lab Tyler Cobb MD HEMATOLOGY ORDERABLE S [facility] [place] [address] * (ABNORMAL) Hemogram (09/01/2022 2:10 AM EDT) White Blood Cell 5.5 4.0 - 9.5 x10(3)/ L [facility] Red Blood Cell 3.95(L) 4.00 - 5.21 x10(6)/mc L [facility] Comment:Dimorphic RBC popula tion. Hemoglobin 8.7(L) 11.7 - 15.5 g/dL [facility] Hematocrit 28.5(L) 35.7 - 45.8 % [facility] Mean Cell Volume 72.2(L) 82.6 - 94.4 fL [facility] Mean Cell Hemoglobin 22.0(L) 27.1 - 32.0 pg [facility] Mean Cell Hemoglobin Concentration 30.5(L) 31.7 - 35.0 g/dL [facility] Platelet 361(H) 145 - 357 x10(3)/mc L [facility] RDW Standard Deviation Not Measured 37.0 - 46.0 fL [facility] RDW coefficient of variation Not Measured 11.5 - 14.1 % [facility] Mean Platelet Volume 9.5 7.6 - 12.9 fL [facility] NRBC% auto 0.0 % [facility] NRBC Absolute 0.000 0.000 - 0.000 x10(3)/mc L [facility] Blood 09/01/2022 2:10 AM EDT 09/01/2022 2:15 AM EDT Narrative Resulting Agency Comment Spec In Lab Tyler Cobb MD HEMATOLOGY ORDERABLE S [facility] [place] [address] * (ABNORMAL) Basic Metabolic Panel (non-fasting) (09/01/2022 2:10 AM EDT) Glucose 86 65 - 199 mg/dL [facility] Comment:Diabetes: >=200 mg/d L plus symptoms Blood Urea Nitrogen 29(H) 8 - 18 mg/dL [facility] Creatinine 0.51(L) 0.70 - 1.20 mg/dL [facility] Sodium 140 135 - 145 mmol/L [facility] Potassium 4.6 3.5 - 5.0 mmol/L [facility] Comment: Please note: ??Patients with WBC >100,000 may have falsely elevated Potassium levels. ??For accurate Potassium quantification in these patients send serum separator tube (gold top) for subsequent determinations. ??Contact the Clinical Chemistry Laboratory if there are any questions. Chloride 104 98 - 107 mmol/L [facility] Carbon Dioxide 29 22 - 31 mmol/L [facility] Anion Gap 7 5 - 15 mmol/L [facility] Calcium 9.4 8.5 - 10.5 mg/dL [facility] Est Glomerular Filtration Rate 105 >=60 mL/min/1. 73 m?? [facility] Comment: This patient's estimated GFR [...] Pascal MD CHEMISTRY ORDERABLES Performing Organization Address [facility] Co de Phone Number [facility] [place] [address] * Phosphorus (09/01/2022 2:10 AM EDT) Phosphorus 4.3 2.5 - 4.5 mg/dL [facility] Blood 09/01/2022 2:10 AM EDT 09/01/2022 2:15 AM EDT Narrative Resulting Agency Comment Spec In Lab Richard Pascal MD CHEMISTRY ORDERABLES Performing Organization Address [facility] de Phone Number [facility] [place] [address] * Magnesium (09/01/2022 2:10 AM EDT) Magnesium 0.94 0.69 - 1.07 mmol/L [facility] Blood 09/01/2022 2:10 AM EDT 09/01/2022 2:15 AM EDT Narrative Resulting Agency Comment Spec In Lab Richard Pascal MD CHEMISTRY ORDERABLES Performing Organization Address [facility] Co de Phone Number [facility] [place] [address] * POCT Glucose (08/31/2022 11:46 PM EDT) Glucose, POC 93 65 - 199 mg/dL [facility] Comment: Supplemental ranges: <140 mg/dL before meals <180 mg/dL all other times of the day Blood 08/31/2022 11:4 6 PM EDT 08/31/2022 11:46 PM EDT Tenisha Sandy MD POINT OF CARE MARAINELA T ORDERABLES Performing Organization Address City/[facility] Co de Phone Number [facility] [place] [address] * POCT Glucose (08/31/2022 8:12 PM EDT) Glucose, POC 110 65 - 199 mg/dL [facility] Comment: Supplemental ranges: <140 mg/dL before meals <180 mg/dL all other times of the day Blood 08/31/2022 8:12 PM EDT 08/31/2022 8:12 PM EDT Tenisha Sandy MD POINT OF CARE MARIANELA T ORDERABLES Performing Organization Address [facility] Co de Phone Number [facility] [place] [address] * (ABNORMAL) POCT Glucose (08/31/2022 4:32 PM EDT) Glucose, POC 206(H) 65 - 199 mg/dL [facility] Comment: Supplemental ranges: <140 mg/dL before meals <180 mg/dL all other times of the day Blood 08/31/2022 4:32 PM EDT 08/31/2022 4:32 PM EDT Tenisha Sandy MD POINT OF CARE MARIANELA T ORDERABLES Performing Organization Address [facility] Co de Phone Number [facility] [place] [address] * POCT Glucose (08/31/2022 11:42 AM EDT) Glucose, POC 163 65 - 199 mg/dL [facility] Comment: Supplemental ranges: <140 mg/dL before meals <180 mg/dL all other times of the day Blood 08/31/2022 11:4 2 AM EDT 08/31/2022 11:42 AM EDT Tenisha Sandy MD POINT OF CARE [place] [address] * XR Fluoro Barium Swallow (Modified/Video Swallow [...] who have questions please contact the health infant childcare provider that requested your imaging first. ? Electronically signed by: Aron Billings MD, [facility] ([phone]), at 08/31/2022 12:02 PM Narrative 08/31/2022 12:02 [...] There is delayed elevation of the larynx penitentiary between the vallecula and piriform sinuses. It [...] There is delayed elevation of the larynx penitentiary between the valleculaand piriform sinuses. It is [...] patients who have questions please contactthe health infant childcare provider that requested your imaging first. Electronically signed by: Aron Billings MD, [facility]([phone]), at 08/31/2022 12:02 PM Milagros Hernandez MD IMG FLUORO ORDERABLE S * POCT Glucose (08/31/2022 7:36 AM EDT) Glucose, POC 116 65 - 199 mg/dL [facility] Comment: Supplemental ranges: <140 mg/dL before meals <180 mg/dL all other times of the day Blood 08/31/2022 7:36 AM EDT 08/31/2022 7:36 AM EDT Alfonso Navarrete MD POINT OF [place] [address] * Differential, Automated (08/31/2022 4:30 AM EDT) Neutrophil % 59.8 % [facility] Neutrophil Absolute 4.03 1.70 - 6.10 x10(3)/[facility] Lymph % 26.3 % [facility] Lymphocytes Abs 1.8 0.9 - 3.2 x10(3)/[facility] Monocyte % 7.9 % [facility] Monocyte Abs 0.5 0.3 - 0.9 x10(3)/[facility] Eos % 4.7 % [facility] Eosinophils Abs 0.3 0.0 - 0.4 x10(3)/[facility] Basophil % 1.0 % [facility] Baso Absolute 0.1 0.0 - 0.1 x10(3)/[facility] Immature Gran % 0.30 % [facility] Comment: Immature granulocytes(IG's)percentage and absolute count will include metamyelocytes, myelocytes, and promyelocytes. Blood smears from CBCs yielding IG's will be scanned manually for concordance. If this scan disagrees with the automated IG or if promyelocytes are noted, a manual differential will be performed. Immature Gran Absolute 0.02 0.00 - 0.04 x10(3)/[facility] Blood 08/31/2022 4:30 AM EDT 08/31/2022 4:36 AM EDT Narrative Resulting Agency Comment Spec In Lab Tyler Cobb MD HEMATOLOGY ORDERABLE S Performing Organization Address City/[facility]/[place] [address] * (ABNORMAL) Hemogram (08/31/2022 4:30 AM EDT) White Blood Cell 6.7 4.0 - 9.5 x10(3)/mc L [facility] Red Blood Cell 3.97(L) 4.00 - 5.21 x10(6)/mc L [facility] Comment:Dimorphic RBC popula tion. Hemoglobin 8.7(L) 11.7 - 15.5 g/dL [facility] Hematocrit 29.2(L) 35.7 - 45.8 % [facility] Mean Cell Volume 73.6(L) 82.6 - 94.4 fL [facility] Mean Cell Hemoglobin 21.9(L) 27.1 - 32.0 pg [facility] Mean Cell Hemoglobin Concentration 29.8(L) 31.7 - 35.0 g/dL [facility] Platelet 330 145 - 357 x10(3)/mc L [facility] RDW Standard Deviation Not Measured 37.0 - 46.0 fL [facility] RDW coefficient of variation Not Measured 11.5 - 14.1 % [facility] Mean Platelet Volume 9.8 7.6 - 12.9 fL [facility] NRBC% auto 0.0 % [facility] NRBC Absolute 0.000 0.000 - 0.000 x10(3)/mc L [facility] Blood 08/31/2022 4:30 AM EDT 08/31/2022 4:36 AM EDT Narrative Resulting Agency Comment Spec In Lab Tyler Cobb MD HEMATOLOGY ORDERABLE S [facility] [place] [address] * Phosphorus (08/31/2022 4:30 AM EDT) Phosphorus 3.4 2.5 - 4.5 mg/dL [facility] Blood 08/31/2022 4:30 AM EDT 08/31/2022 4:36 AM EDT Narrative Resulting Agency Comment Spec In Lab Richard Pascal MD CHEMISTRY ORDERABLES Performing Organization Address City/[facility]/ZIP Co de Phone Number [facility] [place] [address] * Magnesium (08/31/2022 4:30 AM EDT) Magnesium 0.81 0.69 - 1.07 mmol/L [facility] Blood 08/31/2022 4:30 AM EDT 08/31/2022 4:36 AM EDT Narrative Resulting Agency Comment Spec In Lab Richard Pascal MD CHEMISTRY ORDERABLES Performing Organization Address City/[facility] Co de Phone Number [facility] [place] [address] * POCT Glucose (08/31/2022 4:08 AM EDT) Glucose, POC 88 65 - 199 mg/dL [facility] Comment: Supplemental ranges: <140 mg/dL before meals <180 mg/dL all other times of the day Blood 08/31/2022 4:08 AM EDT 08/31/2022 4:08 AM EDT Alfonso Navarrete MD POINT OF CARE TEST O RDERABLES Performing Organization Address [facility] Co de Phone Number [facility] [place] [address] * POCT Glucose (08/31/2022 12:03 AM EDT) Glucose, POC 98 65 - 199 mg/dL [facility] Comment: Supplemental ranges: <140 mg/dL before meals <180 mg/dL all other times of the day Blood 08/31/2022 12:0 3 AM EDT 08/31/2022 12:03 AM EDT Alfonso Navarrete MD POINT OF CARE TEST O RDERABLES Performing Organization Address City/[facility] Co de Phone Number [facility] [place] [address] * POCT Glucose (08/30/2022 7:58 PM EDT) Glucose, POC 131 65 - 199 mg/dL [facility] Comment: Supplemental ranges: <140 mg/dL before meals <180 mg/dL all other times of the day Blood 08/30/2022 7:58 PM EDT 08/30/2022 7:58 PM EDT Alfonso Navarrete MD POINT OF CARE TEST O RDERABLES Performing Organization Address City/[facility] Co de Phone Number [facility] [place] [address] * POCT Glucose (08/30/2022 4:59 PM EDT) Glucose, POC 169 65 - 199 mg/dL [facility] Comment: Supplemental ranges: <140 mg/dL before meals <180 mg/dL all other times of the day Blood 08/30/2022 4:59 PM EDT 08/30/2022 4:59 PM EDT Roland Pruett MD POINT OF CARE TEST O HUGHERAREYMUNDO Performing Organization Address [facility] Co de Phone Number [facility] [place] [address] * POCT Glucose (08/30/2022 11:29 AM EDT) Glucose, POC 168 65 - 199 mg/dL [facility] Comment: Supplemental ranges: <140 mg/dL before meals <180 mg/dL all other times of the day Blood 08/30/2022 11:2 9 AM EDT 08/30/2022 11:29 AM EDT Roland Pruett MD POINT OF CARE TEST O RDERAREYMUNDO Performing Organization Address City/[facility] Co de Phone Number [facility] [place] [address] * POCT Glucose (08/30/2022 8:59 AM EDT) Glucose, POC 160 65 - 199 mg/dL [facility] Comment: Supplemental ranges: <140 mg/dL before meals <180 mg/dL all other times of the day Blood 08/30/2022 8:59 AM EDT 08/30/2022 8:59 AM EDT Roland Pruett MD POINT [place] [address] * Differential, Automated (08/30/2022 4:05 AM EDT) Neutrophil % 61.4 % [facility] Neutrophil Absolute 4.26 1.70 - 6.10 x10(3)/[facility] Lymph % 24.7 % [facility] Lymphocytes Abs 1.7 0.9 - 3.2 x10(3)/[facility] Monocyte % 7.6 % [facility] Monocyte Abs 0.5 0.3 - 0.9 x10(3)/[facility] Eos % 4.7 % [facility] Eosinophils Abs 0.3 0.0 - 0.4 x10(3)/[facility] Basophil % 1.2 % [facility] Baso Absolute 0.1 0.0 - 0.1 x10(3)/[facility] Immature Gran % 0.40 % [facility] Comment: Immature granulocytes(IG's)percentage and absolute count will include metamyelocytes, myelocytes, and promyelocytes. Blood smears from CBCs yielding IG's will be scanned manually for concordance. If this scan disagrees with the automated IG or if promyelocytes are noted, a manual differential will be performed. Immature Gran Absolute 0.03 0.00 - 0.04 x10(3)/[facility] Blood 08/30/2022 4:05 AM EDT 08/30/2022 4:13 AM EDT Narrative Resulting Agency Comment Spec In Lab Roland Pruett MD HEMATOLOGY ORDERABLE S Performing Organization Address City/[facility]/[place] [address] * (ABNORMAL) Hemogram (08/30/2022 4:05 AM EDT) White Blood Cell 7.0 4.0 - 9.5 x10(3)/mc L [facility] Red Blood Cell 3.81(L) 4.00 - 5.21 x10(6)/mc L [facility] Hemoglobin 8.4(L) 11.7 - 15.5 g/dL [facility] Hematocrit 27.8(L) 35.7 - 45.8 % [facility] Mean Cell Volume 73.0(L) 82.6 - 94.4 fL [facility] Mean Cell Hemoglobin 22.0(L) 27.1 - 32.0 pg [facility] Mean Cell Hemoglobin Concentration 30.2(L) 31.7 - 35.0 g/dL [facility] Platelet 407(H) 145 - 357 x10(3)/mc L [facility] RDW Standard Deviation Not Measured 37.0 - 46.0 fL [facility] RDW coefficient of variation Not Measured 11.5 - 14.1 % [facility] Mean Platelet Volume 9.4 7.6 - 12.9 fL [facility] NRBC% auto 0.0 % [facility] NRBC Absolute 0.000 0.000 - 0.000 x10(3)/mc L [facility] Blood 08/30/2022 4:05 AM EDT 08/30/2022 4:13 AM EDT Narrative Resulting Agency Comment Spec In Lab Roland Pruett MD HEMATOLOGY ORDERABLE S [facility] [place] [address] * Phosphorus (08/30/2022 4:05 AM EDT) Phosphorus 3.7 2.5 - 4.5 mg/dL [facility] Blood 08/30/2022 4:05 AM EDT 08/30/2022 4:13 AM EDT Narrative Resulting Agency Comment Spec In Lab Roland Pruett MD CHEMISTRY ORDERABLES [facility] [place] [address] * Magnesium (08/30/2022 4:05 AM EDT) Magnesium 0.90 0.69 - 1.07 mmol/L [facility] Blood 08/30/2022 4:05 AM EDT 08/30/2022 4:13 AM EDT Narrative Resulting Agency Comment Spec In Lab Roland Pruett MD CHEMISTRY ORDERABLES [facility] [place] [address] * (ABNORMAL) Basic Metabolic Panel (non-fasting) (08/30/2022 4:05 AM EDT) Glucose 133 65 - 199 mg/dL [facility] Comment:Diabetes: >=200 mg/d L plus symptoms Blood Urea Nitrogen 19(H) 8 - 18 mg/dL [facility] Creatinine 0.50(L) 0.70 - 1.20 mg/dL [facility] Sodium 140 135 - 145 mmol/L [facility] Potassium 4.1 3.5 - 5.0 mmol/L [facility] Comment: Please note: ??Patients with WBC >100,000 may have falsely elevated Potassium levels. ??For accurate Potassium quantification in these patients send serum separator tube (gold top) for subsequent determinations. ??Contact the Clinical Chemistry Laboratory if there are any questions. Chloride 104 98 - 107 mmol/L [facility] Carbon Dioxide 28 22 - 31 mmol/L [facility] Anion Gap 8 5 - 15 mmol/L [facility] Calcium 9.4 8.5 - 10.5 mg/dL [facility] Est Glomerular Filtration Rate 106 >=60 mL/min/1. 73 m?? [facility] Comment: This patient's estimated GFR [...] Pruett MD CHEMISTRY ORDERABLES Performing Organization Address [facility] Co de Phone Number [facility] [place] [address] * POCT Glucose (08/30/2022 4:00 AM EDT) Glucose, POC 128 65 - 199 mg/dL [facility] Comment: Supplemental ranges: <140 mg/dL before meals <180 mg/dL all other times of the day Blood 08/30/2022 4:00 AM EDT 08/30/2022 4:00 AM EDT Roland Pruett MD POINT OF CARE TEST O RDERABLES Performing Organization Address [facility] Co de Phone Number [facility] [place] [address] * POCT Glucose (08/29/2022 11:58 PM EDT) Glucose, POC 155 65 - 199 mg/dL [facility] Comment: Supplemental ranges: <140 mg/dL before meals <180 mg/dL all other times of the day Blood 08/29/2022 11:5 8 PM EDT 08/29/2022 11:58 PM EDT Roland Pruett MD POINT OF CARE TEST O RDERABLES Performing Organization Address City/[facility] Co de Phone Number [facility] [place] [address] * POCT Glucose (08/29/2022 8:16 PM EDT) Glucose, POC 146 65 - 199 mg/dL [facility] Comment: Supplemental ranges: <140 mg/dL before meals <180 mg/dL all other times of the day Blood 08/29/2022 8:16 PM EDT 08/29/2022 8:16 PM EDT Roland Pruett MD POINT OF CARE TEST O RDERABLES Performing Organization Address City/[facility]/ZIP Co de Phone Number [facility] [place] [address] * POCT Glucose (08/29/2022 4:08 PM EDT) Glucose, POC 194 65 - 199 mg/dL [facility] Comment: Supplemental ranges: <140 mg/dL before meals <180 mg/dL all other times of the day Blood 08/29/2022 4:08 PM EDT 08/29/2022 4:08 PM EDT Roland Pruett MD POINT OF CARE TEST O RDERABLES Performing Organization Address [facility] Co de Phone Number [facility] [place] [address] * Valproic Acid Level, Total (08/29/2022 11:35 AM EDT) Valproic Acid 25 mg/L [facility] Comment: Therapeutic Range: Anticonvulsant Therapy: ??50-100 mg/L Manic Episodes Associated with Bipolar Disorder: ??50-125 mg/L Blood 08/29/2022 11:3 5 AM EDT 08/29/2022 11:44 AM EDT Narrative Resulting Agency Comment Spec In Lab Roland Pruett MD CHEMISTRY ORDERABLES Performing Organization Address [facility] Co de Phone Number [facility] [place] [address] * (ABNORMAL) POCT Glucose (08/29/2022 11:34 AM EDT) Glucose, POC 209(H) 65 - 199 mg/dL [facility] Comment: Supplemental ranges: <140 mg/dL before meals <180 mg/dL all other times of the day Blood 08/29/2022 11:3 4 AM EDT 08/29/2022 11:34 AM EDT Roland Pruett MD POINT [place] [address] * Differential, Automated (08/29/2022 9:30 AM EDT) Pathologist [facility] Neutrophil % 72.4 % [facility] Neutrophil Absolute 5.42 1.70 - 6.10 x10(3)/[facility] Lymph % 16.8 % [facility] Lymphocytes Abs 1.3 0.9 - 3.2 x10(3)/[facility] Monocyte % 6.5 % [facility] Monocyte Abs 0.5 0.3 - 0.9 x10(3)/[facility] Eos % 3.2 % [facility] Eosinophils Abs 0.2 0.0 - 0.4 x10(3)/[facility] Basophil % 0.8 % [facility] Baso Absolute 0.1 0.0 - 0.1 x10(3)/[facility] Immature Gran % 0.30 % [facility] Comment: Immature granulocytes(IG's)percentage and absolute count will include metamyelocytes, myelocytes, and promyelocytes. Blood smears from CBCs yielding IG's will be scanned manually for concordance. If this scan disagrees with the automated IG or if promyelocytes are noted, a manual differential will be performed. Immature Gran Absolute 0.02 0.00 - 0.04 x10(3)/[facility] Blood 08/29/2022 9:30 AM EDT 08/29/2022 9:31 AM EDT Narrative Resulting Agency Comment Spec In Lab Tyler Cobb MD HEMATOLOGY ORDERABLE S Performing Organization Address City/[facility]/[place] [address] * (ABNORMAL) Hemogram (08/29/2022 9:30 AM EDT) Pathologist [facility] White Blood Cell 7.5 4.0 - 9.5 x10(3)/mc L [facility] Red Blood Cell 4.01 4.00 - 5.21 x10(6)/ L [facility] Comment:Dimorphic RBC popula tion. Hemoglobin 8.7(L) 11.7 - 15.5 g/dL [facility] Hematocrit 28.5(L) 35.7 - 45.8 % [facility] Mean Cell Volume 71.1(L) 82.6 - 94.4 fL [facility] Mean Cell Hemoglobin 21.7(L) 27.1 - 32.0 pg [facility] Mean Cell Hemoglobin Concentration 30.5(L) 31.7 - 35.0 g/dL [facility] Platelet 448(H) 145 - 357 x10(3)/mc L [facility] RDW Standard Deviation Not Measured 37.0 - 46.0 fL [facility] RDW coefficient of variation Not Measured 11.5 - 14.1 % [facility] Mean Platelet Volume 9.5 7.6 - 12.9 fL [facility] NRBC% auto 0.0 % [facility] NRBC Absolute 0.000 0.000 - 0.000 x10(3)/ L [facility] Blood 08/29/2022 9:30 AM EDT 08/29/2022 9:31 AM EDT Narrative Resulting Agency Comment Spec In Lab Tyler Cobb MD HEMATOLOGY ORDERABLE S [facility] [place] [address] * Phosphorus (08/29/2022 9:30 AM EDT) Phosphorus 3.4 2.5 - 4.5 mg/dL [facility] Blood 08/29/2022 9:30 AM EDT 08/29/2022 9:31 AM EDT Narrative Resulting Agency Comment Spec In Lab Richard Pascal MD CHEMISTRY ORDERABLES [facility] [place] [address] * Magnesium (08/29/2022 9:30 AM EDT) Magnesium 0.81 0.69 - 1.07 mmol/L [facility] Blood 08/29/2022 9:30 AM EDT 08/29/2022 9:31 AM EDT Narrative Resulting Agency Comment Spec In Lab Richard Pascal MD CHEMISTRY ORDERABLES [facility] [place] [address] * (ABNORMAL) Basic Metabolic Panel (non-fasting) (08/29/2022 9:30 AM EDT) Glucose 289(H) 65 - 199 mg/dL [facility] Comment:Diabetes: >=200 mg/d L plus symptoms Blood Urea Nitrogen 19(H) 8 - 18 mg/dL [facility] Creatinine 0.47(L) 0.70 - 1.20 mg/dL [facility] Sodium 137 135 - 145 mmol/L [facility] Potassium 4.4 3.5 - 5.0 mmol/L [facility] Comment: Please note: ??Patients with WBC >100,000 may have falsely elevated Potassium levels. ??For accurate Potassium quantification in these patients send serum separator tube (gold top) for subsequent determinations. ??Contact the Clinical Chemistry Laboratory if there are any questions. Chloride 103 98 - 107 mmol/L [facility] Carbon Dioxide 25 22 - 31 mmol/L [facility] Anion Gap 9 5 - 15 mmol/L [facility] Calcium 9.2 8.5 - 10.5 mg/dL [facility] Est Glomerular Filtration Rate 108 >=60 mL/min/1. 73 m?? [facility] Comment: This patient's estimated GFR [...] Pascal MD CHEMISTRY ORDERABLES Performing Organization Address City/[facility] Co de Phone Number [facility] [place] [address] * (ABNORMAL) POCT Glucose (08/29/2022 9:13 AM EDT) Glucose, POC 279(H) 65 - 199 mg/dL [facility] Comment: Supplemental ranges: <140 mg/dL before meals <180 mg/dL all other times of the day Blood 08/29/2022 9:13 AM EDT 08/29/2022 9:13 AM EDT Roland Pruett MD POINT OF CARE TEST O RDERABLES Performing Organization Address [facility] Co de Phone Number [facility] [place] [address] * Lipid Panel (Reflex Direct LDL) (08/29/2022 4:48 AM EDT) Cholesterol, Total 110 mg/dL [facility] Comment: Lower Risk: <200 mg/dL Average Risk: 200-239 mg/dL Higher Risk: >ep=082 mg/dL Triglyceride 127 mg/dL [facility] Comment: Average Risk/Lower Risk: <150 mg/dL Borderline High Risk: 150-199 mg/dL High Risk: 200-499 mg/dL Very High Risk: >do=072 mg/dL HDL Cholesterol 34 mg/dL [facility] Comment: Males: ?? Higher Risk: <40 mg/dL Females: ?? Higher Risk: <50 mg/dL LDL Cholesterol 51 mg/dL [facility] Comment: Lowest Risk: <100 mg/dL Lower Risk: 100-129 mg/dL Borderline High Risk: 130-159 mg/dL High Risk: 160-189 mg/dL Very High Risk: >wq=418 mg/dL Cholesterol/HDL Ratio 3.2 ratio [facility] Lipid Interpretation See Note [facility] Comment: Lipid management should be guided by a patient? s ASCVD risk, goals and preferences. ACC/AHA Guidelines recommend high intensity statin if clinical ASCVD or LDL greater than or equal to 190 mg/dL. http://StackEngineurl.com/APR-ZQP-Rcxdkysfs Adults aged 40-75 with LDL 70-189 mg/dL should have their 10 year ASCVD risk estimated with the ACC/AHA ASCVD risk construction cost estimator http://tools.acc.org/XCAHC-Isme-Gnxtkdzty/ Statin should be discussed if risk greater [...] In Lab Milagros Hernandez MD CHEMISTRY ORDERABLES [facility] [place] [address] * Valproic Acid Level, Total (08/29/2022 4:48 AM EDT) Valproic Acid 29 mg/L [facility] Comment: Therapeutic Range: Anticonvulsant Therapy: ??50-100 mg/L Manic Episodes Associated with Bipolar Disorder: ??50-125 mg/L Blood 08/29/2022 4:48 AM EDT 08/29/2022 4:58 AM EDT Narrative Resulting Agency Comment Spec In Lab Milagros Hernandez MD CHEMISTRY ORDERABLES [facility] [place] [address] * POCT Glucose (08/29/2022 3:53 AM EDT) Glucose, POC 152 65 - 199 mg/dL [facility] Comment: Supplemental ranges: <140 mg/dL before meals <180 mg/dL all other times of the day Blood 08/29/2022 3:53 AM EDT 08/29/2022 3:53 AM EDT Milagros Hernandez MD POINT OF CARE TEST O HUGHERAREYMUNDO Performing Organization Address City/[facility]/ZIP Co de Phone Number [facility] [place] [address] * POCT Glucose (08/29/2022 12:13 AM EDT) Glucose, POC 153 65 - 199 mg/dL [facility] Comment: Supplemental ranges: <140 mg/dL before meals <180 mg/dL all other times of the day Blood 08/29/2022 12:1 3 AM EDT 08/29/2022 12:13 AM EDT Milagros Hernandez MD POINT OF CARE TEST O HUGHERAREYMUNDO Performing Organization Address [facility] Co de Phone Number [facility] [place] [address] * (ABNORMAL) POCT Glucose (08/28/2022 7:38 PM EDT) Glucose, POC 211(H) 65 - 199 mg/dL [facility] Comment: Supplemental ranges: <140 mg/dL before meals <180 mg/dL all other times of the day Blood 08/28/2022 7:38 PM EDT 08/28/2022 7:38 PM EDT Milagros Hernandez MD POINT OF CARE TEST O RDERAREYMUNDO Performing Organization Address City/[facility] Co de Phone Number [facility] [place] [address] * POCT Glucose (08/28/2022 4:33 PM EDT) Glucose, POC 196 65 - 199 mg/dL [facility] Comment: Supplemental ranges: <140 mg/dL before meals <180 mg/dL all other times of the day Blood 08/28/2022 4:33 PM EDT 08/28/2022 4:33 PM EDT Milagros Hernandez MD POINT OF CARE TEST O RDERABLES [facility] [place] [address] * (ABNORMAL) POCT Glucose (08/28/2022 12:06 PM EDT) Glucose, POC 221(H) 65 - 199 mg/dL [facility] Comment: Supplemental ranges: <140 mg/dL before meals <180 mg/dL all other times of the day Blood 08/28/2022 12:0 6 PM EDT 08/28/2022 12:06 PM EDT Milagros Hernandez MD POINT OF CARE TEST O RDERABLES Performing Organization Address City/[facility] Co de Phone Number [facility] [place] [address] * Differential, Automated (08/28/2022 7:00 AM EDT) Neutrophil % 65.3 % [facility] Neutrophil Absolute 5.85 1.70 - 6.10 x10(3)/[facility] LABORATORY Lymph % 23.3 % [facility] Lymphocytes Abs 2.1 0.9 - 3.2 x10(3)/[facility] LABORATORY Monocyte % 6.8 % [facility] Monocyte Abs 0.6 0.3 - 0.9 x10(3)/[facility] LABORATORY Eos % 3.3 % [facility] Eosinophils Abs 0.3 0.0 - 0.4 x10(3)/[facility] LABORATORY Basophil % 0.9 % [facility] Baso Absolute 0.1 0.0 - 0.1 x10(3)/[facility] LABORATORY Immature Gran % 0.40 % [facility] Comment: Immature granulocytes(IG's)percentage and absolute count will include metamyelocytes, myelocytes, and promyelocytes. Blood smears from CBCs yielding IG's will be scanned manually for concordance. If this scan disagrees with the automated IG or if promyelocytes are noted, a manual differential will be performed. Immature Gran Absolute 0.04 0.00 - 0.04 x10(3)/mcL [facility] Blood 08/28/2022 7:00 AM EDT 08/28/2022 7:04 AM EDT Narrative Resulting Agency Comment Spec In Lab Tyler Cobb MD HEMATOLOGY ORDERABLE S [facility] [place] [address] * (ABNORMAL) Hemogram (08/28/2022 7:00 AM EDT) White Blood Cell 9.0 4.0 - 9.5 x10(3)/mc L [facility] Red Blood Cell 3.90(L) 4.00 - 5.21 x10(6)/mc L [facility] Comment:Dimorphic RBC popula tion. Hemoglobin 8.6(L) 11.7 - 15.5 g/dL [facility] Hematocrit 27.4(L) 35.7 - 45.8 % [facility] Mean Cell Volume 70.3(L) 82.6 - 94.4 fL [facility] Mean Cell Hemoglobin 22.1(L) 27.1 - 32.0 pg [facility] Mean Cell Hemoglobin Concentration 31.4(L) 31.7 - 35.0 g/dL [facility] Platelet 464(H) 145 - 357 x10(3)/mc L [facility] RDW Standard Deviation Not Measured 37.0 - 46.0 fL [facility] RDW coefficient of variation Not Measured 11.5 - 14.1 % [facility] Mean Platelet Volume 9.5 7.6 - 12.9 fL [facility] NRBC% auto 0.0 % [facility] NRBC Absolute 0.000 0.000 - 0.000 x10(3)/mc L [facility] Blood 08/28/2022 7:00 AM EDT 08/28/2022 7:04 AM EDT Narrative Resulting Agency Comment Spec In Lab Tyler Cobb MD HEMATOLOGY ORDERABLE S Performing Organization Address [facility] Co de Phone Number [facility] [place] [address] * (ABNORMAL) Phosphorus (08/28/2022 7:00 AM EDT) Phosphorus 4.6(H) 2.5 - 4.5 mg/dL [facility] Blood 08/28/2022 7:00 AM EDT 08/28/2022 7:04 AM EDT Narrative Resulting Agency Comment Spec In Lab Richard Pascal MD CHEMISTRY ORDERABLES Performing Organization Address [facility] Co de Phone Number [facility] [place] [address] * Magnesium (08/28/2022 7:00 AM EDT) Magnesium 0.87 0.69 - 1.07 mmol/L [facility] Blood 08/28/2022 7:00 AM EDT 08/28/2022 7:04 AM EDT Narrative Resulting Agency Comment Spec In Lab Richard Pascal MD CHEMISTRY ORDERABLES Performing Organization Address [facility] de Phone Number [facility] [place] [address] * (ABNORMAL) Basic Metabolic Panel (non-fasting) (08/28/2022 7:00 AM EDT) Glucose 113 65 - 199 mg/dL [facility] Comment:Diabetes: >=200 mg/d L plus symptoms Blood Urea Nitrogen 15 8 - 18 mg/dL [facility] Creatinine 0.46(L) 0.70 - 1.20 mg/dL [facility] Sodium 141 135 - 145 mmol/L [facility] Potassium 4.2 3.5 - 5.0 mmol/L [facility] Comment: Please note: ??Patients with WBC >100,000 may have falsely elevated Potassium levels. ??For accurate Potassium quantification in these patients send serum separator tube (gold top) for subsequent determinations. ??Contact the Clinical Chemistry Laboratory if there are any questions. Chloride 105 98 - 107 mmol/L [facility] Carbon Dioxide 27 22 - 31 mmol/L [facility] Anion Gap 9 5 - 15 mmol/L [facility] Calcium 9.4 8.5 - 10.5 mg/dL [facility] Est Glomerular Filtration Rate 108 >=60 mL/min/1. 73 m?? [facility] Comment: This patient's estimated GFR [...] Pascal MD CHEMISTRY ORDERABLES Performing Organization Address City/[facility]/ZIP Co de Phone Number [facility] [place] [address] * POCT Glucose (08/28/2022 4:59 AM EDT) Glucose, POC 96 65 - 199 mg/dL [facility] Comment: Supplemental ranges: <140 mg/dL before meals <180 mg/dL all other times of the day Blood 08/28/2022 4:59 AM EDT 08/28/2022 4:59 AM EDT Milagros Hernandez MD POINT OF CARE TEST O RDERABLES [facility] [place] [address] * POCT Glucose (08/28/2022 12:08 AM EDT) Glucose, POC 91 65 - 199 mg/dL [facility] Comment: Supplemental ranges: <140 mg/dL before meals <180 mg/dL all other times of the day Blood 08/28/2022 12:0 8 AM EDT 08/28/2022 12:08 AM EDT Milagros Hernandez MD POINT OF CARE TEST O RDERABLES Performing Organization Address [facility] Co de Phone Number [facility] [place] [address] * POCT Glucose (08/27/2022 9:50 PM EDT) Glucose, POC 140 65 - 199 mg/dL [facility] Comment: Supplemental ranges: <140 mg/dL before meals <180 mg/dL all other times of the day Blood 08/27/2022 9:50 PM EDT 08/27/2022 9:50 PM EDT Milagros Hernandez MD POINT OF CARE TEST O HUGHERAREYMUNDO Performing Organization Address [facility] Co de Phone Number [facility] [place] [address] * Potassium (08/27/2022 6:00 PM EDT) Potassium 4.0 3.5 - 5.0 mmol/L [facility] Comment: Please note: ??Patients with [...] Pascal MD CHEMISTRY ORDERABLES Performing Organization Address [facility] Co de Phone Number [facility] [place] [address] * POCT Glucose (08/27/2022 4:55 PM EDT) Glucose, POC 149 65 - 199 mg/dL [facility] Comment: Supplemental ranges: <140 mg/dL before meals <180 mg/dL all other times of the day Blood 08/27/2022 4:55 PM EDT 08/27/2022 4:55 PM EDT Milagros Hernandez MD POINT OF CARE TEST O RDAV [facility] [place] [address] * Potassium (08/27/2022 1:55 PM EDT) Potassium 4.3 3.5 - 5.0 mmol/L [facility] Comment: Please note: ??Patients with [...] Pascal MD CHEMISTRY ORDERABLES Performing Organization Address City/[facility]/ZIP Co de Phone Number [facility] [place] [address] * POCT Glucose (08/27/2022 11:32 AM EDT) Glucose, POC 141 65 - 199 mg/dL [facility] Comment: Supplemental ranges: <140 mg/dL before meals <180 mg/dL all other times of the day Blood 08/27/2022 11:3 2 AM EDT 08/27/2022 11:32 AM EDT Milagros Hernandez MD POINT OF CARE TEST O GABRIELLA Performing Organization Address City/[facility]/ZIP Co de Phone Number [facility] [place] [address] * Potassium (08/27/2022 9:50 AM EDT) Potassium 4.4 3.5 - 5.0 mmol/L [facility] Comment: Please note: ??Patients with WBC >100,000 may have falsely elevated Potassium levels. ??For accurate Potassium quantification in these patients send serum separator tube (gold top) for subsequent determinations. ??Contact the Clinical Chemistry Laboratory if there are any questions. Blood 08/27/2022 9:50 AM EDT 08/27/2022 10:05 AM EDT Narrative Resulting Agency Comment Spec In Lab Richard Pascal MD CHEMISTRY ORDERABLES [facility] [place] [address] * CT Chest wo Contrast (Generic) (08/27/2022 [...] who have questions please contact the health infant childcare provider that requested your imaging first. ? Narrative [...] patients who have questions please contactthe health infant childcare provider that requested your imaging first. Electronically signed by: MINH QUIROGA MD, [facility]([phone]), at 08/27/2022 10:48 AM Milagros Hernandez MD [...] who have questions please contact the health infant childcare provider that requested your imaging first. ? Electronically signed by: Arlette Mays MD, [facility] ([phone]), at 08/27/2022 11:39 AM Narrative 08/27/2022 11:39 [...] race/ethnicity, and gender: N/A Reference: Maty RL, Chyu H, Amirah R, et al. ??Distribution of [...] patients who have questions please contactthe health infant childcare provider that requested your imaging first. Milagros Hernandez MD IMG CT ORDERABLES * POCT Glucose (08/27/2022 7:38 AM EDT) Glucose, POC 114 65 - 199 mg/dL [facility] Comment: Supplemental ranges: <140 mg/dL before meals <180 mg/dL all other times of the day Blood 08/27/2022 7:38 AM EDT 08/27/2022 7:38 AM EDT Milagros Hernandez MD POINT OF CARE TEST O RDERABLES Performing Organization Address City/State/[facility] Co de Phone Number [facility] [place] [address] * (ABNORMAL) Differential, Automated (08/27/2022 5:40 AM EDT) [facility] Neutrophil % 69.4 % [facility] Neutrophil Absolute 6.61(H) 1.70 - 6.10 x10(3)/mc L [facility] Lymph % 18.6 % [facility] Lymphocytes Abs 1.8 0.9 - 3.2 x10(3)/mc L [facility] Monocyte % 7.7 % [facility] Monocyte Abs 0.7 0.3 - 0.9 x10(3)/mc [facility] Eos % 3.2 % [facility] Eosinophils Abs 0.3 0.0 - 0.4 x10(3)/mc L [facility] Basophil % 0.7 % [facility] Baso Absolute 0.1 0.0 - 0.1 x10(3)/mc L [facility] Immature Gran % 0.40 % [facility] Comment: Immature granulocytes(IG's)percentage and absolute count will include metamyelocytes, myelocytes, and promyelocytes. Blood smears from CBCs yielding IG's will be scanned manually for concordance. If this scan disagrees with the automated IG or if promyelocytes are noted, a manual differential will be performed. Immature Gran Absolute 0.04 0.00 - 0.04 x10(3)/mc L [facility] Blood 08/27/2022 5:40 AM EDT 08/27/2022 5:44 AM EDT Narrative Resulting Agency Comment Spec In Lab Tyler Cobb MD HEMATOLOGY ORDERABLE S [facility] [place] [address] * (ABNORMAL) Hemogram (08/27/2022 5:40 AM EDT) White Blood Cell 9.5 4.0 - 9.5 x10(3)/mc L [facility] Red Blood Cell 3.92(L) 4.00 - 5.21 x10(6)/mc [facility] Comment:Dimorphic RBC popula tion. Hemoglobin 8.6(L) 11.7 - 15.5 g/dL [facility] Hematocrit 27.7(L) 35.7 - 45.8 % [facility] Mean Cell Volume 70.7(L) 82.6 - 94.4 fL [facility] Mean Cell Hemoglobin 21.9(L) 27.1 - 32.0 pg [facility] Mean Cell Hemoglobin Concentration 31.0(L) 31.7 - 35.0 g/dL [facility] Platelet 528(H) 145 - 357 x10(3)/mc L [facility] RDW Standard Deviation Not Measured 37.0 - 46.0 fL [facility] RDW coefficient of variation Not Measured 11.5 - 14.1 % [facility] Mean Platelet Volume 9.7 7.6 - 12.9 fL [facility] NRBC% auto 0.0 % [facility] NRBC Absolute 0.000 0.000 - 0.000 x10(3)/mc L [facility] Blood 08/27/2022 5:40 AM EDT 08/27/2022 5:44 AM EDT Narrative Resulting Agency Comment Spec In Lab Tyler Cobb MD HEMATOLOGY ORDERABLE S [facility] [place] [address] * Phosphorus (08/27/2022 5:40 AM EDT) Phosphorus 3.7 2.5 - 4.5 mg/dL [facility] Blood 08/27/2022 5:40 AM EDT 08/27/2022 5:44 AM EDT Narrative Resulting Agency Comment Spec In Lab Richard Pascal MD CHEMISTRY ORDERABLES Performing Organization Address [facility] Co de Phone Number [facility] [place] [address] * Magnesium (08/27/2022 5:40 AM EDT) Magnesium 0.85 0.69 - 1.07 mmol/L [facility] Blood 08/27/2022 5:40 AM EDT 08/27/2022 5:44 AM EDT Narrative Resulting Agency Comment Spec In Lab Richard Pascal MD CHEMISTRY ORDERABLES Performing Organization Address [facility] Co de Phone Number [facility] [place] [address] * (ABNORMAL) Basic Metabolic Panel (non-fasting) (08/27/2022 5:40 AM EDT) Glucose 130 65 - 199 mg/dL [facility] Comment:Diabetes: >=200 mg/d L plus symptoms Blood Urea Nitrogen 15 8 - 18 mg/dL [facility] Creatinine 0.44(L) 0.70 - 1.20 mg/dL [facility] Sodium 139 135 - 145 mmol/L [facility] Potassium 4.4 3.5 - 5.0 mmol/L [facility] Comment: Please note: ??Patients with WBC >100,000 may have falsely elevated Potassium levels. ??For accurate Potassium quantification in these patients send serum separator tube (gold top) for subsequent determinations. ??Contact the Clinical Chemistry Laboratory if there are any questions. Chloride 106 98 - 107 mmol/L [facility] Carbon Dioxide 27 22 - 31 mmol/L [facility] Anion Gap 6 5 - 15 mmol/L [facility] Calcium 9.3 8.5 - 10.5 mg/dL [facility] Est Glomerular Filtration Rate 109 >=60 mL/min/1. 73 m?? [facility] Comment: This patient's estimated GFR [...] Pascal MD CHEMISTRY ORDERABLES Performing Organization Address City/[facility]/ZIP Co de Phone Number [facility] [place] [address] * POCT Glucose (08/27/2022 5:19 AM EDT) Glucose, POC 124 65 - 199 mg/dL [facility] Comment: Supplemental ranges: <140 mg/dL before meals <180 mg/dL all other times of the day Blood 08/27/2022 5:19 AM EDT 08/27/2022 5:19 AM EDT Milagros Hernandez MD POINT OF CARE TEST O RDERABLES [facility] [place] [address] * POCT Glucose (08/26/2022 11:27 PM EDT) Glucose, POC 162 65 - 199 mg/dL [facility] Comment: Supplemental ranges: <140 mg/dL before meals <180 mg/dL all other times of the day Blood 08/26/2022 11:2 7 PM EDT 08/26/2022 11:27 PM EDT Milagros Hernandez MD POINT OF CARE TEST O RDERABLES Performing Organization Address [facility] Co de Phone Number [facility] [place] [address] * POCT Glucose (08/26/2022 8:05 PM EDT) Glucose, POC 138 65 - 199 mg/dL [facility] Comment: Supplemental ranges: <140 mg/dL before meals <180 mg/dL all other times of the day Blood 08/26/2022 8:05 PM EDT 08/26/2022 8:05 PM EDT Milagros Hernandez MD POINT OF CARE TEST O RDERABLES Performing Organization Address [facility] Co de Phone Number [facility] [place] [address] * POCT Glucose (08/26/2022 4:51 PM EDT) Glucose, POC 111 65 - 199 mg/dL [facility] Comment: Supplemental ranges: <140 mg/dL before meals <180 mg/dL all other times of the day Blood 08/26/2022 4:51 PM EDT 08/26/2022 4:51 PM EDT Milagros Hernandez MD POINT OF CARE TEST O RDERABLES Performing Organization Address [facility] Co de Phone Number [facility] [place] [address] * POCT Glucose (08/26/2022 1:13 PM EDT) Glucose, POC 151 65 - 199 mg/dL [facility] Comment: Supplemental ranges: <140 mg/dL before meals <180 mg/dL all other times of the day Blood 08/26/2022 1:13 PM EDT 08/26/2022 1:13 PM EDT Milagros Hernandez MD POINT OF CARE TEST O RDERABLES Performing Organization Address City/[facility] Co de Phone Number [facility] [place] [address] * POCT Glucose (08/26/2022 11:28 AM EDT) Glucose, POC 130 65 - 199 mg/dL [facility] Comment: Supplemental ranges: <140 mg/dL before meals <180 mg/dL all other times of the day Blood 08/26/2022 11:2 8 AM EDT 08/26/2022 11:28 AM EDT Milagros Hernandez MD POINT OF CARE TEST O RDERAREYMUNDO Performing Organization Address [facility] Co de Phone Number [facility] [place] [address] * (ABNORMAL) POCT Glucose (08/26/2022 7:58 AM EDT) Glucose, POC 202(H) 65 - 199 mg/dL [facility] Comment: Supplemental ranges: <140 mg/dL before meals <180 mg/dL all other times of the day Blood 08/26/2022 7:58 AM EDT 08/26/2022 7:58 AM EDT Milagros Hernandez MD POINT OF CARE TEST O RDERAREYMUNDO Performing Organization Address [facility] Co de Phone Number [facility] [place] [address] * POCT Glucose (08/26/2022 4:42 AM EDT) Glucose, POC 160 65 - 199 mg/dL [facility] Comment: Supplemental ranges: <140 mg/dL before meals <180 mg/dL all other times of the day Blood 08/26/2022 4:42 AM EDT 08/26/2022 4:42 AM EDT Milagros Hernandez MD POINT OF CARE [place] [address] * (ABNORMAL) Differential, Automated (08/26/2022 12:22 AM EDT) Neutrophil % 67.5 % [facility] Neutrophil Absolute 6.01 1.70 - 6.10 x10(3)/mc L [facility] Lymph % 18.8 % [facility] Lymphocytes Abs 1.7 0.9 - 3.2 x10(3)/ L [facility] Monocyte % 8.9 % [facility] Monocyte Abs 0.8 0.3 - 0.9 x10(3)/[facility] LABORATORY Eos % 3.3 % [facility] Eosinophils Abs 0.3 0.0 - 0.4 x10(3)/[facility]OR[facility]ORY Basophil % 0.7 % [facility] Baso Absolute 0.1 0.0 - 0.1 x10(3)/[facility]ORATORY Immature Gran % 0.80 % [facility] Comment: Immature granulocytes(IG's)percentage and absolute count will include metamyelocytes, myelocytes, and promyelocytes. Blood smears from CBCs yielding IG's will be scanned manually for concordance. If this scan disagrees with the automated IG or if promyelocytes are noted, a manual differential will be performed. Immature Gran Absolute 0.07(H) 0.00 - 0.04 x10(3)/ L [facility] Blood 08/26/2022 12:2 2 AM EDT 08/26/2022 12:30 AM EDT Narrative Resulting Agency Comment Spec In Lab Tyler Cobb MD [place] [address] * (ABNORMAL) Hemogram (08/26/2022 12:22 AM EDT) White Blood Cell 8.9 4.0 - 9.5 x10(3)/ L [facility] Red Blood Cell 3.80(L) 4.00 - 5.21 x10(6)/[facility] Comment:Dimorphic RBC popula tion. Hemoglobin 8.3(L) 11.7 - 15.5 g/dL [facility] Hematocrit 26.6(L) 35.7 - 45.8 % [facility] Mean Cell Volume 70.0(L) 82.6 - 94.4 fL [facility] Mean Cell Hemoglobin 21.8(L) 27.1 - 32.0 pg [facility] Mean Cell Hemoglobin Concentration 31.2(L) 31.7 - 35.0 g/dL [facility] Platelet 456(H) 145 - 357 x10(3)/mc L [facility] RDW Standard Deviation Not Measured 37.0 - 46.0 fL [facility] RDW coefficient of variation Not Measured 11.5 - 14.1 % [facility] Mean Platelet Volume 9.9 7.6 - 12.9 fL [facility] NRBC% auto 0.0 % [facility] NRBC Absolute 0.000 0.000 - 0.000 x10(3)/ L [facility] Blood 08/26/2022 12:2 2 AM EDT 08/26/2022 12:30 AM EDT Narrative Resulting Agency Comment Spec In Lab Tyler Cobb MD HEMATOLOGY ORDERABLE S [facility] [place] [address] * (ABNORMAL) Basic Metabolic Panel (non-fasting) (08/26/2022 12:22 AM EDT) Glucose 195 65 - 199 mg/dL [facility] Comment:Diabetes: >=200 mg/d L plus symptoms Blood Urea Nitrogen 12 8 - 18 mg/dL [facility] Creatinine 0.38(L) 0.70 - 1.20 mg/dL [facility] Sodium 137 135 - 145 mmol/L [facility] Potassium 4.0 3.5 - 5.0 mmol/L [facility] Comment: Please note: ??Patients with WBC >100,000 may have falsely elevated Potassium levels. ??For accurate Potassium quantification in these patients send serum separator tube (gold top) for subsequent determinations. ??Contact the Clinical Chemistry Laboratory if there are any questions. Chloride 105 98 - 107 mmol/L [facility] Carbon Dioxide 25 22 - 31 mmol/L [facility] Anion Gap 7 5 - 15 mmol/L [facility] Calcium 9.0 8.5 - 10.5 mg/dL [facility] Est Glomerular Filtration Rate 113 >=60 mL/min/1. 73 m?? [facility] Comment: This patient's estimated GFR [...] In Lab Richard Pascal MD CHEMISTRY ORDERABLES [facility] [place] [address] * Phosphorus (08/26/2022 12:22 AM EDT) Phosphorus 2.8 2.5 - 4.5 mg/dL [facility] LABORATORY Blood 08/26/2022 12:2 2 AM EDT 08/26/2022 12:30 AM EDT Narrative Resulting Agency Comment Spec In Lab Richard Pascal MD CHEMISTRY ORDERABLES [facility] [place] [address] * Magnesium (08/26/2022 12:22 AM EDT) Magnesium 0.76 0.69 - 1.07 mmol/L [facility] Blood 08/26/2022 12:2 2 AM EDT 08/26/2022 12:30 AM EDT Narrative Resulting Agency Comment Spec In Lab Richard Pascal MD CHEMISTRY ORDERABLES Performing Organization Address [facility] Co de Phone Number [facility] [place] [address] * POCT Glucose (08/26/2022 12:19 AM EDT) Glucose, POC 188 65 - 199 mg/dL [facility] Comment: Supplemental ranges: <140 mg/dL before meals <180 mg/dL all other times of the day Blood 08/26/2022 12:1 9 AM EDT 08/26/2022 12:19 AM EDT Milagros Hernandez MD POINT OF CARE TEST O RDERABLES Performing Organization Address [facility] Co de Phone Number [facility] [place] [address] * POCT Glucose (08/25/2022 7:47 PM EDT) Glucose, POC 182 65 - 199 mg/dL [facility] Comment: Supplemental ranges: <140 mg/dL before meals <180 mg/dL all other times of the day Blood 08/25/2022 7:47 PM EDT 08/25/2022 7:47 PM EDT Milagros Hernandez MD POINT OF CARE TEST O RDERABLES Performing Organization Address [facility] Co de Phone Number [facility] [place] [address] * POCT Glucose (08/25/2022 4:31 PM EDT) Glucose, POC 156 65 - 199 mg/dL [facility] Comment: Supplemental ranges: <140 mg/dL before meals <180 mg/dL all other times of the day Blood 08/25/2022 4:31 PM EDT 08/25/2022 4:31 PM EDT Milagros Hernandez MD POINT OF CARE TEST O RDERABLES [facility] [place] [address] * POCT Glucose (08/25/2022 3:08 PM EDT) Glucose, POC 113 65 - 199 mg/dL [facility] Comment: Supplemental ranges: <140 mg/dL before meals <180 mg/dL all other times of the day Blood 08/25/2022 3:08 PM EDT 08/25/2022 3:08 PM EDT Milagros Hernandez MD POINT OF CARE TEST O RDERABLES Performing Organization Address City/[facility]/ZIP Co de Phone Number [facility] [place] [address] * POCT Glucose (08/25/2022 2:09 PM EDT) Glucose, POC 146 65 - 199 mg/dL [facility] Comment: Supplemental ranges: <140 mg/dL before meals <180 mg/dL all other times of the day Blood 08/25/2022 2:09 PM EDT 08/25/2022 2:09 PM EDT Milagros Hernandez MD POINT OF CARE TEST O RDERABLES Performing Organization Address City/[facility]/ZIP Co de Phone Number [facility] [place] [address] * POCT Glucose (08/25/2022 12:44 PM EDT) Glucose, POC 197 65 - 199 mg/dL [facility] Comment: Supplemental ranges: <140 mg/dL before meals <180 mg/dL all other times of the day Blood 08/25/2022 12:4 4 PM EDT 08/25/2022 12:44 PM EDT Milagros Hernandez MD POINT OF CARE TEST O RDERABLES [facility] [place] [address] * (ABNORMAL) POCT Glucose (08/25/2022 12:25 PM EDT) Glucose, POC 212(H) 65 - 199 mg/dL [facility] Comment: Supplemental ranges: <140 mg/dL before meals <180 mg/dL all other times of the day Blood 08/25/2022 12:2 5 PM EDT 08/25/2022 12:25 PM EDT Milagros Hernandez MD POINT OF CARE TEST O RDERABLES [facility] [place] [address] * Valproic Acid Level, Total (08/25/2022 11:28 AM EDT) Valproic Acid 21 mg/L [facility] Comment: Therapeutic Range: Anticonvulsant Therapy: ??50-100 mg/L Manic Episodes Associated with Bipolar Disorder: ??50-125 mg/L Blood 08/25/2022 11:2 8 AM EDT 08/25/2022 11:34 AM EDT Narrative Resulting Agency Comment Spec In Lab Milagros Hernandez MD CHEMISTRY ORDERABLES Performing Organization Address City/[facility]/ZIP Co de Phone Number [facility] [place] [address] * POCT Glucose (08/25/2022 11:09 AM EDT) Glucose, POC 185 65 - 199 mg/dL [facility] Comment: Supplemental ranges: <140 mg/dL before meals <180 mg/dL all other times of the day Blood 08/25/2022 11:0 9 AM EDT 08/25/2022 11:09 AM EDT Milagros Hernandez MD POINT OF CARE TEST O RDERABLES [facility] [place] [address] * POCT Glucose (08/25/2022 9:52 AM EDT) Glucose, POC 162 65 - 199 mg/dL [facility] Comment: Supplemental ranges: <140 mg/dL before meals <180 mg/dL all other times of the day Blood 08/25/2022 9:52 AM EDT 08/25/2022 9:52 AM EDT Milagros Hernandez MD POINT OF CARE TEST O GABRIELLA [facility] [place] [address] * POCT Glucose (08/25/2022 8:59 AM EDT) Glucose, POC 137 65 - 199 mg/dL [facility] Comment: Supplemental ranges: <140 mg/dL before meals <180 mg/dL all other times of the day Blood 08/25/2022 8:59 AM EDT 08/25/2022 8:59 AM EDT Milagros Hernandez MD POINT OF CARE TEST O GABRIELLA Performing Organization Address [facility] Co de Phone Number [facility] [place] [address] * (ABNORMAL) POCT Glucose (08/25/2022 7:32 AM EDT) Glucose, POC 202(H) 65 - 199 mg/dL [facility] Comment: Supplemental ranges: <140 mg/dL before meals <180 mg/dL all other times of the day Blood 08/25/2022 7:32 AM EDT 08/25/2022 7:32 AM EDT Milagros Hernandez MD POINT OF CARE TEST O RDERAREYMUNDO Performing Organization Address City/[facility] Co de Phone Number [facility] [place] [address] * POCT Glucose (08/25/2022 5:50 AM EDT) Glucose, POC 169 65 - 199 mg/dL [facility] Comment: Supplemental ranges: <140 mg/dL before meals <180 mg/dL all other times of the day Blood 08/25/2022 5:50 AM EDT 08/25/2022 5:50 AM EDT Milagros Hernandez MD POINT OF CARE TEST O RDERABLES Performing Organization Address City/[facility]/ZIP Co de Phone Number [facility] [place] [address] * POCT Glucose (08/25/2022 3:23 AM EDT) Glucose, POC 157 65 - 199 mg/dL [facility] Comment: Supplemental ranges: <140 mg/dL before meals <180 mg/dL all other times of the day Blood 08/25/2022 3:23 AM EDT 08/25/2022 3:23 AM EDT Milagros Hernandez MD POINT OF CARE TEST O RDERAREYMUNDO Performing Organization Address [facility] Co de Phone Number [facility] [place] [address] * POCT Glucose (08/25/2022 2:35 AM EDT) Glucose, POC 163 65 - 199 mg/dL [facility] Comment: Supplemental ranges: <140 mg/dL before meals <180 mg/dL all other times of the day Blood 08/25/2022 2:35 AM EDT 08/25/2022 2:35 AM EDT Milagros Hernandez MD POINT OF CARE TEST O RDERABLES Performing Organization Address City/[facility] Co de Phone Number [facility] [place] [address] * Scan, Peripheral Blood (08/25/2022 1:14 AM EDT) Plat estimate Increased [facility] RBC Morphology Abnormal [facility] Macrocyte 1-5 /HPF [facility] Microcyte 6-10 /HPF [facility] Hypochromia Slight [facility] Polychromasia Present >5/HPF [facility] Ovalocytes 1-5 /HPF [facility] Target Cells 1-5 /HPF [facility] Newman Cells 1-5 /HPF [facility] Blood 08/25/2022 1:14 AM EDT 08/25/2022 1:14 AM EDT Narrative Resulting Agency Comment Spec In Lab Tyler Cobb MD HEMATOLOGY ORDERABLE S [facility] [place] [address] * (ABNORMAL) Differential, Automated (08/25/2022 1:14 AM EDT) Neutrophil % 72.4 % [facility] Neutrophil Absolute 8.27(H) 1.70 - 6.10 x10(3)/mc L [facility] Lymph % 15.6 % [facility] Lymphocytes Abs 1.8 0.9 - 3.2 x10(3)/mc L [facility] Monocyte % 8.5 % [facility] Monocyte Abs 1.0(H) 0.3 - 0.9 x10(3)/mc L [facility] Eos % 2.3 % [facility] Eosinophils Abs 0.3 0.0 - 0.4 x10(3)/mc L [facility] Basophil % 0.4 % [facility] Baso Absolute 0.0 0.0 - 0.1 x10(3)/mc L [facility] Immature Gran % 0.80 % [facility] Comment: Immature granulocytes(IG's)percentage and absolute count will include metamyelocytes, myelocytes, and promyelocytes. Blood smears from CBCs yielding IG's will be scanned manually for concordance. If this scan disagrees with the automated IG or if promyelocytes are noted, a manual differential will be performed. Immature Gran Absolute 0.09(H) 0.00 - 0.04 x10(3)/mc L [facility] Blood 08/25/2022 1:14 AM EDT 08/25/2022 1:14 AM EDT Narrative Resulting Agency Comment Spec In Lab Tyler Cobb MD HEMATOLOGY ORDERABLE S [facility] [place] [address] * (ABNORMAL) Hemogram (08/25/2022 1:14 AM EDT) White Blood Cell 11.4(H) 4.0 - 9.5 x10(3)/mc L [facility] Red Blood Cell 4.00 4.00 - 5.21 x10(6)/mc L [facility] Comment:Dimorphic RBC popula tion. Hemoglobin 8.6(L) 11.7 - 15.5 g/dL [facility] Hematocrit 27.9(L) 35.7 - 45.8 % [facility] Mean Cell Volume 69.8(L) 82.6 - 94.4 fL [facility] Mean Cell Hemoglobin 21.5(L) 27.1 - 32.0 pg [facility] Mean Cell Hemoglobin Concentration 30.8(L) 31.7 - 35.0 g/dL [facility] Platelet 501(H) 145 - 357 x10(3)/mc L [facility] RDW Standard Deviation Not Measured 37.0 - 46.0 fL [facility] RDW coefficient of variation Not Measured 11.5 - 14.1 % [facility] Mean Platelet Volume 9.8 7.6 - 12.9 fL [facility] NRBC% auto 0.0 % [facility] NRBC Absolute 0.000 0.000 - 0.000 x10(3)/mc L [facility] Blood 08/25/2022 1:14 AM EDT 08/25/2022 1:14 AM EDT Narrative Resulting Agency Comment Spec In Lab Tyler Cobb MD HEMATOLOGY ORDERABLE S [facility] [place] [address] * (ABNORMAL) Basic Metabolic Panel (non-fasting) (08/25/2022 1:14 AM EDT) Glucose 186 65 - 199 mg/dL [facility] Comment:Diabetes: >=200 mg/d L plus symptoms Blood Urea Nitrogen 15 8 - 18 mg/dL [facility] Creatinine 0.38(L) 0.70 - 1.20 mg/dL [facility] Sodium 138 135 - 145 mmol/L [facility] Potassium 4.1 3.5 - 5.0 mmol/L [facility] Comment: Please note: ??Patients with WBC >100,000 may have falsely elevated Potassium levels. ??For accurate Potassium quantification in these patients send serum separator tube (gold top) for subsequent determinations. ??Contact the Clinical Chemistry Laboratory if there are any questions. Chloride 106 98 - 107 mmol/L [facility] Carbon Dioxide 24 22 - 31 mmol/L [facility] Anion Gap 8 5 - 15 mmol/L [facility] Calcium 8.6 8.5 - 10.5 mg/dL [facility] Est Glomerular Filtration Rate 113 >=60 mL/min/1. 73 m?? [facility] Comment: This patient's estimated GFR [...] In Lab Richard Pascal MD CHEMISTRY ORDERABLES [facility] [place] [address] * (ABNORMAL) Phosphorus (08/25/2022 1:14 AM EDT) Phosphorus 2.3(L) 2.5 - 4.5 mg/dL [facility] Blood 08/25/2022 1:14 AM EDT 08/25/2022 1:14 AM EDT Narrative Resulting Agency Comment Spec In Lab Richard Pascal MD CHEMISTRY ORDERABLES Performing Organization Address [facility] Co de Phone Number [facility] [place] [address] * Magnesium (08/25/2022 1:14 AM EDT) Magnesium 0.82 0.69 - 1.07 mmol/L [facility] Blood 08/25/2022 1:14 AM EDT 08/25/2022 1:14 AM EDT Narrative Resulting Agency Comment Spec In Lab Richard Pascal MD CHEMISTRY ORDERABLES Performing Organization Address [facility] de Phone Number [facility] [place] [address] * POCT Glucose (08/25/2022 1:00 AM EDT) Glucose, POC 186 65 - 199 mg/dL [facility] Comment: Supplemental ranges: <140 mg/dL before meals <180 mg/dL all other times of the day Blood 08/25/2022 1:00 AM EDT 08/25/2022 1:00 AM EDT Milagros Hernandez MD POINT OF CARE TEST O RDERABLES Performing Organization Address [facility] Co de Phone Number [facility] [place] [address] * POCT Glucose (08/24/2022 11:26 PM EDT) Glucose, POC 198 65 - 199 mg/dL [facility] Comment: Supplemental ranges: <140 mg/dL before meals <180 mg/dL all other times of the day Blood 08/24/2022 11:2 6 PM EDT 08/24/2022 11:26 PM EDT Milagros Hernandez MD POINT OF CARE TEST O RDERABLES [facility] [place] [address] * POCT Glucose (08/24/2022 10:16 PM EDT) Glucose, POC 188 65 - 199 mg/dL [facility] Comment: Supplemental ranges: <140 mg/dL before meals <180 mg/dL all other times of the day Blood 08/24/2022 10:1 6 PM EDT 08/24/2022 10:16 PM EDT Milagros Hernandez MD POINT OF CARE TEST O RDERAREYMUNDO Performing Organization Address City/[facility]/ZIP Co de Phone Number [facility] [place] [address] * POCT Glucose (08/24/2022 9:20 PM EDT) Glucose, POC 195 65 - 199 mg/dL [facility] Comment: Supplemental ranges: <140 mg/dL before meals <180 mg/dL all other times of the day Blood 08/24/2022 9:20 PM EDT 08/24/2022 9:20 PM EDT Milagros Hernandez MD POINT OF CARE TEST O RDERABLES Performing Organization Address City/[facility]/ZIP Co de Phone Number [facility] [place] [address] * POCT Glucose (08/24/2022 7:41 PM EDT) Glucose, POC 185 65 - 199 mg/dL [facility] Comment: Supplemental ranges: <140 mg/dL before meals <180 mg/dL all other times of the day Blood 08/24/2022 7:41 PM EDT 08/24/2022 7:41 PM EDT Milagros Hernandez MD POINT OF CARE TEST O RDERABLES [facility] [place] [address] * POCT Glucose (08/24/2022 6:38 PM EDT) Glucose, POC 136 65 - 199 mg/dL [facility] Comment: Supplemental ranges: <140 mg/dL before meals <180 mg/dL all other times of the day Blood 08/24/2022 6:38 PM EDT 08/24/2022 6:38 PM EDT Milagros Hernandez MD POINT OF CARE TEST O GABRIELLA [facility] [place] [address] * POCT Glucose (08/24/2022 6:00 PM EDT) Glucose, POC 131 65 - 199 mg/dL [facility] Comment: Supplemental ranges: <140 mg/dL before meals <180 mg/dL all other times of the day Blood 08/24/2022 6:00 PM EDT 08/24/2022 6:00 PM EDT Milagros Hernandez MD POINT OF CARE TEST O GABRIELLA Performing Organization Address City/[facility]/ZIP Co de Phone Number [facility] [place] [address] * POCT Glucose (08/24/2022 4:21 PM EDT) Glucose, POC 147 65 - 199 mg/dL [facility] Comment: Supplemental ranges: <140 mg/dL before meals <180 mg/dL all other times of the day Blood 08/24/2022 4:21 PM EDT 08/24/2022 4:21 PM EDT Milagros Hernandez MD POINT OF CARE TEST O GABRIELLA [facility] [place] [address] * POCT Glucose (08/24/2022 3:14 PM EDT) Glucose, POC 160 65 - 199 mg/dL [facility] Comment: Supplemental ranges: <140 mg/dL before meals <180 mg/dL all other times of the day Blood 08/24/2022 3:14 PM EDT 08/24/2022 3:14 PM EDT Milagros Hernandez MD POINT OF CARE TEST O GABRIELLA Performing Organization Address City/[facility]/ZIP Co de Phone Number [facility] [place] [address] * Potassium (08/24/2022 2:21 PM EDT) Potassium 4.4 3.5 - 5.0 mmol/L [facility] Comment: Please note: ??Patients with [...] Pascal MD CHEMISTRY ORDERABLES Performing Organization Address [facility] Co de Phone Number [facility] [place] [address] * POCT Glucose (08/24/2022 2:16 PM EDT) Glucose, POC 168 65 - 199 mg/dL [facility] Comment: Supplemental ranges: <140 mg/dL before meals <180 mg/dL all other times of the day Blood 08/24/2022 2:16 PM EDT 08/24/2022 2:16 PM EDT Milagros Hernandez MD POINT OF CARE TEST O RDERAREYMUNDO Performing Organization Address City/[facility]/ZIP Co de Phone Number [facility] [place] [address] * POCT Glucose (08/24/2022 1:10 PM EDT) Glucose, POC 166 65 - 199 mg/dL [facility] Comment: Supplemental ranges: <140 mg/dL before meals <180 mg/dL all other times of the day Blood 08/24/2022 1:10 PM EDT 08/24/2022 1:10 PM EDT Milagros Hernandez MD POINT OF CARE TEST O RDERABLES Performing Organization Address City/[facility]/ZIP Co de Phone Number [facility] [place] [address] * POCT Glucose (08/24/2022 12:12 PM EDT) Glucose, POC 185 65 - 199 mg/dL [facility] Comment: Supplemental ranges: <140 mg/dL before meals <180 mg/dL all other times of the day Blood 08/24/2022 12:1 2 PM EDT 08/24/2022 12:12 PM EDT Milagros Hernandez MD POINT OF CARE TEST O GABRIELLA Performing Organization Address [facility] Co de Phone Number [facility] [place] [address] * (ABNORMAL) Vitamin D, 25-Hydroxy (08/24/2022 11:29 AM EDT) Vitamin D Total 25 OH 12(L) 21 - 100 ng/mL [facility] Vit D Interp Deficient [facility] Blood 08/24/2022 11:2 9 AM EDT 08/24/2022 11:49 AM EDT Narrative Resulting Agency Comment Spec In Lab Dixie Tadeo MD CHEMISTRY ORDERABLES Performing Organization Address [facility] Co de Phone Number [facility] [place] [address] * PTH (08/24/2022 11:29 AM EDT) Parathyroid Hormone 60 15 - 65 pg/mL [facility] Blood 08/24/2022 11:2 9 AM EDT 08/24/2022 11:49 AM EDT Narrative Resulting Agency Comment Spec In Lab Dixie Tadeo MD CHEMISTRY ORDERABLES Performing Organization Address City/[facility]/ZIP Co de Phone Number [facility] [place] [address] * POCT Glucose (08/24/2022 11:22 AM EDT) Glucose, POC 183 65 - 199 mg/dL [facility] Comment: Supplemental ranges: <140 mg/dL before meals <180 mg/dL all other times of the day Blood 08/24/2022 11:2 2 AM EDT 08/24/2022 11:22 AM EDT Milagros Hernandez MD POINT OF CARE TEST O RDERABLES Performing Organization Address City/[facility] Co de Phone Number [facility] [place] [address] * POCT Glucose (08/24/2022 10:27 AM EDT) Glucose, POC 193 65 - 199 mg/dL [facility] Comment: Supplemental ranges: <140 mg/dL before meals <180 mg/dL all other times of the day Blood 08/24/2022 10:2 7 AM EDT 08/24/2022 10:27 AM EDT Milagros Hernandez MD POINT OF CARE TEST O RDERABLES Performing Organization Address City/[facility]/ZIP Co de Phone Number [facility] [place] [address] * POCT Glucose (08/24/2022 9:12 AM EDT) Glucose, POC 171 65 - 199 mg/dL [facility] Comment: Supplemental ranges: <140 mg/dL before meals <180 mg/dL all other times of the day Blood 08/24/2022 9:12 AM EDT 08/24/2022 9:12 AM EDT Milagros Hernadnez MD POINT OF CARE TEST O RDERABLES Performing Organization Address City/[facility] Co de Phone Number [facility] [place] [address] * (ABNORMAL) POCT Glucose (08/24/2022 8:00 AM EDT) Glucose, POC 224(H) 65 - 199 mg/dL [facility] Comment: Supplemental ranges: <140 mg/dL before meals <180 mg/dL all other times of the day Blood 08/24/2022 8:00 AM EDT 08/24/2022 8:00 AM EDT Milagros Hernandez MD POINT OF CARE TEST O RDERAREYMUNDO Performing Organization Address [facility] Co de Phone Number [facility] [place] [address] * POCT Glucose (08/24/2022 6:16 AM EDT) Glucose, POC 183 65 - 199 mg/dL [facility] Comment: Supplemental ranges: <140 mg/dL before meals <180 mg/dL all other times of the day Blood 08/24/2022 6:16 AM EDT 08/24/2022 6:16 AM EDT Milagros Hernandez MD POINT OF CARE TEST O RDERAREYMUNDO Performing Organization Address [facility] Co de Phone Number [facility] [place] [address] * POCT Glucose (08/24/2022 4:49 AM EDT) Glucose, POC 145 65 - 199 mg/dL [facility] Comment: Supplemental ranges: <140 mg/dL before meals <180 mg/dL all other times of the day Blood 08/24/2022 4:49 AM EDT 08/24/2022 4:49 AM EDT Milagros Hernandez MD POINT OF CARE TEST O RDERAREYMUNDO Performing Organization Address City/[facility] Co de Phone Number [facility] [place] [address] * POCT Glucose (08/24/2022 4:08 AM EDT) Pathologist [facility] Glucose, POC 135 65 - 199 mg/dL [facility] Comment: Supplemental ranges: <140 mg/dL before meals <180 mg/dL all other times of the day Blood 08/24/2022 4:08 AM EDT 08/24/2022 4:08 AM EDT Milagros Hernandez MD POINT OF CARE TEST O RDERABLES Performing Organization Address [facility] Co de Phone Number [facility] [place] [address] * Scan, Peripheral Blood (08/24/2022 1:53 AM EDT) [facility] Plat estimate Increased [facility] RBC Morphology Abnormal [facility] Microcyte 1-5 /HPF [facility] Hypochromia Slight [facility] Ovalocytes 1-5 /HPF [facility] Newman Cells 1-5 /HPF [facility] Platelet Clumps Present [facility] Blood 08/24/2022 1:53 AM EDT 08/24/2022 2:02 AM EDT Narrative Resulting Agency Comment Spec In Lab Tyler Cobb MD HEMATOLOGY ORDERABLE S Performing Organization Address [facility] Co de Phone Number [facility] [place] [address] * (ABNORMAL) Differential, Automated (08/24/2022 1:53 AM EDT) [facility] Neutrophil % 77.0 % [facility] Neutrophil Absolute 10.61(H) 1.70 - 6.10 x10(3)/mc L [facility] Lymph % 11.1 % [facility] Lymphocytes Abs 1.5 0.9 - 3.2 x10(3)/mc L [facility] Monocyte % 8.2 % [facility] Monocyte Abs 1.1(H) 0.3 - 0.9 x10(3)/mc L [facility] Eos % 2.2 % [facility] Eosinophils Abs 0.3 0.0 - 0.4 x10(3)/ L [facility] Basophil % 0.4 % [facility] Baso Absolute 0.1 0.0 - 0.1 x10(3)/mc L [facility] Immature Gran % 1.10 % [facility] Comment: Immature granulocytes(IG's)percentage and absolute count will include metamyelocytes, myelocytes, and promyelocytes. Blood smears from CBCs yielding IG's will be scanned manually for concordance. If this scan disagrees with the automated IG or if promyelocytes are noted, a manual differential will be performed. Immature Gran Absolute 0.15(H) 0.00 - 0.04 x10(3)/ L [facility] Blood 08/24/2022 1:53 AM EDT 08/24/2022 2:02 AM EDT Narrative Resulting Agency Comment Spec In Lab Tyler Cobb MD HEMATOLOGY ORDERABLE S [facility] [place] [address] * (ABNORMAL) Hemogram (08/24/2022 1:53 AM EDT) White Blood Cell 13.8(H) 4.0 - 9.5 x10(3)/mc L [facility] Red Blood Cell 4.05 4.00 - 5.21 x10(6)/ L [facility] Hemoglobin 8.7(L) 11.7 - 15.5 g/dL [facility] Hematocrit 28.1(L) 35.7 - 45.8 % [facility] Mean Cell Volume 69.4(L) 82.6 - 94.4 fL [facility] Mean Cell Hemoglobin 21.5(L) 27.1 - 32.0 pg [facility] Mean Cell Hemoglobin Concentration 31.0(L) 31.7 - 35.0 g/dL [facility] Platelet 504(H) 145 - 357 x10(3)/mc L [facility] RDW Standard Deviation 71.8(H) 37.0 - 46.0 fL [facility] RDW coefficient of variation 31.0(H) 11.5 - 14.1 % [facility] Mean Platelet Volume 9.7 7.6 - 12.9 fL [facility] NRBC% auto 0.1 % [facility] NRBC Absolute 0.020(H) 0.000 - 0.000 x10(3)/mc L [facility] Blood 08/24/2022 1:53 AM EDT 08/24/2022 2:02 AM EDT Narrative Resulting Agency Comment Spec In Lab Tyler Cobb MD HEMATOLOGY ORDERABLE S [facility] [place] [address] * (ABNORMAL) Basic Metabolic Panel (non-fasting) (08/24/2022 1:53 AM EDT) Glucose 155 65 - 199 mg/dL [facility] Comment:Diabetes: >=200 mg/d L plus symptoms Blood Urea Nitrogen 17 8 - 18 mg/dL [facility] Creatinine 0.45(L) 0.70 - 1.20 mg/dL [facility] Sodium 141 135 - 145 mmol/L [facility] Potassium 3.7 3.5 - 5.0 mmol/L [facility] Comment: Please note: ??Patients with WBC >100,000 may have falsely elevated Potassium levels. ??For accurate Potassium quantification in these patients send serum separator tube (gold top) for subsequent determinations. ??Contact the Clinical Chemistry Laboratory if there are any questions. Chloride 106 98 - 107 mmol/L [facility] Carbon Dioxide 27 22 - 31 mmol/L [facility] Anion Gap 8 5 - 15 mmol/L [facility] Calcium 8.6 8.5 - 10.5 mg/dL [facility] Est Glomerular Filtration Rate 109 >=60 mL/min/1. 73 m?? [facility] Comment: This patient's estimated GFR [...] In Lab Richard Pascal MD CHEMISTRY ORDERABLES [facility] [place] [address] * (ABNORMAL) Phosphorus (08/24/2022 1:53 AM EDT) Phosphorus 2.3(L) 2.5 - 4.5 mg/dL [facility] Blood 08/24/2022 1:53 AM EDT 08/24/2022 2:02 AM EDT Narrative Resulting Agency Comment Spec In Lab Richard Pascal MD CHEMISTRY ORDERABLES Performing Organization Address City/[facility]/ZIP Co de Phone Number [facility] [place] [address] * Magnesium (08/24/2022 1:53 AM EDT) Magnesium 0.90 0.69 - 1.07 mmol/L [facility] Blood 08/24/2022 1:53 AM EDT 08/24/2022 2:02 AM EDT Narrative Resulting Agency Comment Spec In Lab Richard Pascal MD CHEMISTRY ORDERABLES Performing Organization Address City/[facility]/ZIP Co de Phone Number [facility] [place] [address] * POCT Glucose (08/24/2022 1:51 AM EDT) Glucose, POC 151 65 - 199 mg/dL [facility] Comment: Supplemental ranges: <140 mg/dL before meals <180 mg/dL all other times of the day Blood 08/24/2022 1:51 AM EDT 08/24/2022 1:51 AM EDT Milagros Hernandez MD POINT OF CARE TEST O RDERABLES Performing Organization Address City/[facility] Co de Phone Number [facility] [place] [address] * POCT Glucose (08/24/2022 12:01 AM EDT) Glucose, POC 174 65 - 199 mg/dL [facility] Comment: Supplemental ranges: <140 mg/dL before meals <180 mg/dL all other times of the day Blood 08/24/2022 12:0 1 AM EDT 08/24/2022 12:01 AM EDT Milagros Hernandez MD POINT OF CARE TEST O RDERABLES Performing Organization Address [facility] Co de Phone Number [facility] [place] [address] * POCT Glucose (08/23/2022 11:03 PM EDT) Glucose, POC 180 65 - 199 mg/dL [facility] Comment: Supplemental ranges: <140 mg/dL before meals <180 mg/dL all other times of the day Blood 08/23/2022 11:0 3 PM EDT 08/23/2022 11:03 PM EDT Milagros Hernandez MD POINT OF CARE TEST O RDERABLES Performing Organization Address [facility] Co de Phone Number [facility] [place] [address] * (ABNORMAL) POCT Glucose (08/23/2022 9:10 PM EDT) Glucose, POC 200(H) 65 - 199 mg/dL [facility] Comment: Supplemental ranges: <140 mg/dL before meals <180 mg/dL all other times of the day Blood 08/23/2022 9:10 PM EDT 08/23/2022 9:10 PM EDT Milagros Hernandez MD POINT OF CARE TEST O RDERABLES Performing Organization Address City/[facility]/ZIP Co de Phone Number [facility] [place] [address] * POCT Glucose (08/23/2022 7:01 PM EDT) Glucose, POC 189 65 - 199 mg/dL [facility] Comment: Supplemental ranges: <140 mg/dL before meals <180 mg/dL all other times of the day Blood 08/23/2022 7:01 PM EDT 08/23/2022 7:01 PM EDT Milagros Hernandez MD POINT OF CARE TEST O RDERABLES Performing Organization Address [facility] Co de Phone Number [facility] [place] [address] * POCT Glucose (08/23/2022 6:09 PM EDT) Glucose, POC 194 65 - 199 mg/dL [facility] Comment: Supplemental ranges: <140 mg/dL before meals <180 mg/dL all other times of the day Blood 08/23/2022 6:09 PM EDT 08/23/2022 6:09 PM EDT Milagros Hernandez MD POINT OF CARE TEST O RDERABLES Performing Organization Address [facility] Co de Phone Number [facility] [place] [address] * (ABNORMAL) POCT Glucose (08/23/2022 4:26 PM EDT) Glucose, POC 214(H) 65 - 199 mg/dL [facility] Comment: Supplemental ranges: <140 mg/dL before meals <180 mg/dL all other times of the day Blood 08/23/2022 4:26 PM EDT 08/23/2022 4:26 PM EDT Milagros Hernandez MD POINT OF CARE TEST O RDERABLES [facility] [place] [address] * POCT Glucose (08/23/2022 2:56 PM EDT) Glucose, POC 158 65 - 199 mg/dL [facility] Comment: Supplemental ranges: <140 mg/dL before meals <180 mg/dL all other times of the day Blood 08/23/2022 2:56 PM EDT 08/23/2022 2:56 PM EDT Milagros Hernandez MD POINT OF CARE TEST O RDERABLES Performing Organization Address City/[facility]/ZIP Co de Phone Number [facility] [place] [address] * POCT Glucose (08/23/2022 1:32 PM EDT) Glucose, POC 166 65 - 199 mg/dL [facility] Comment: Supplemental ranges: <140 mg/dL before meals <180 mg/dL all other times of the day Blood 08/23/2022 1:32 PM EDT 08/23/2022 1:32 PM EDT Milagros Hernandez MD POINT OF CARE TEST O RDERAREYMUNDO Performing Organization Address [facility]/ZIP Co de Phone Number [facility] [place] [address] * POCT Glucose (08/23/2022 12:06 PM EDT) Glucose, POC 171 65 - 199 mg/dL [facility] Comment: Supplemental ranges: <140 mg/dL before meals <180 mg/dL all other times of the day Blood 08/23/2022 12:0 6 PM EDT 08/23/2022 12:06 PM EDT Milagros Hernandez MD POINT OF CARE TEST O RDERABLES Performing Organization Address City/[facility]/ZIP Co de Phone Number [facility] [place] [address] * POCT Glucose (08/23/2022 11:09 AM EDT) [facility] Glucose, POC 153 65 - 199 mg/dL [facility] Comment: Supplemental ranges: <140 mg/dL before meals <180 mg/dL all other times of the day Blood 08/23/2022 11:0 9 AM EDT 08/23/2022 11:09 AM EDT Milagros Hernandez MD POINT OF CARE TEST O RDERABLES Performing Organization Address [facility] Co de Phone Number [facility] [place] [address] * Scan, Peripheral Blood (08/23/2022 10:55 AM EDT) [facility] Plat estimate Increased [facility] RBC Morphology Abnormal [facility] Microcyte 1-5 /HPF [facility] Hypochromia Slight [facility] Ovalocytes 1-5 /HPF [facility] Connor Cells 1-5 /HPF [facility] Platelet Clumps Present [facility] Blood 08/23/2022 10:5 5 AM EDT 08/23/2022 11:03 AM EDT Narrative Resulting Agency Comment Spec In Lab Neva Tomlin MD HEMATOLOGY ORDERABLE S Performing Organization Address [facility] de Phone Number [facility] [place] [address] * (ABNORMAL) Differential, Automated (08/23/2022 10:55 AM EDT) [facility] Neutrophil % 81.2 % [facility] Neutrophil Absolute 13.28(H) 1.70 - 6.10 x10(3)/mc L [facility] Lymph % 8.6 % [facility] Lymphocytes Abs 1.4 0.9 - 3.2 x10(3)/mc L [facility] Monocyte % 7.0 % [facility] Monocyte Abs 1.2(H) 0.3 - 0.9 x10(3)/mc L [facility] Eos % 1.7 % [facility] Eosinophils Abs 0.3 0.0 - 0.4 x10(3)/mc L [facility] Basophil % 0.2 % [facility] Baso Absolute 0.0 0.0 - 0.1 x10(3)/mc L [facility] Immature Gran % 1.30 % [facility] Comment: Immature granulocytes(IG's)percentage and absolute count will include metamyelocytes, myelocytes, and promyelocytes. Blood smears from CBCs yielding IG's will be scanned manually for concordance. If this scan disagrees with the automated IG or if promyelocytes are noted, a manual differential will be performed. Immature Gran Absolute 0.22(H) 0.00 - 0.04 x10(3)/[facility] Blood 08/23/2022 10:5 5 AM EDT 08/23/2022 11:03 AM EDT Narrative Resulting Agency Comment Spec In Lab Neva Tomlin MD HEMATOLOGY ORDERABLE S Performing Organization Address City/State/[facility] Co de Phone Number [facility] [place] [address] * (ABNORMAL) Hemogram (08/23/2022 10:55 AM EDT) White Blood Cell 16.4(H) 4.0 - 9.5 x10(3)/[facility] Red Blood Cell 3.89(L) 4.00 - 5.21 x10(6)/[facility] Hemoglobin 8.6(L) 11.7 - 15.5 g/dL [facility] Hematocrit 27.2(L) 35.7 - 45.8 % [facility] Mean Cell Volume 69.9(L) 82.6 - 94.4 fL [facility] Mean Cell Hemoglobin 22.1(L) 27.1 - 32.0 pg [facility] Mean Cell Hemoglobin Concentration 31.6(L) 31.7 - 35.0 g/dL [facility] Platelet Not Measured 145 - 357 x10(3)/[facility] Comment: Platelet clumps present. Estimate appears Increased. If numerical platelet count is necessary send both a Sodium Citrate tube and an EDTA tube for future platelet count orders. RDW Standard Deviation Not Measured 37.0 - 46.0 fL [facility] RDW coefficient of variation Not Measured 11.5 - 14.1 % [facility] Mean Platelet Volume Not Measured 7.6 - 12.9 fL [facility] NRBC% auto 0.2 % [facility] NRBC Absolute 0.030(H) 0.000 - 0.000 x10(3)/mc L [facility] Blood 08/23/2022 10:5 5 AM EDT 08/23/2022 11:03 AM EDT Narrative Resulting Agency Comment Spec In Lab Neva Tomlin MD HEMATOLOGY ORDERABLE S Performing Organization Address [facility] Co de Phone Number [facility] [place] [address] * (ABNORMAL) POCT Glucose (08/23/2022 8:01 AM EDT) Glucose, POC 210(H) 65 - 199 mg/dL [facility] Comment: Supplemental ranges: <140 mg/dL before meals <180 mg/dL all other times of the day Blood 08/23/2022 8:01 AM EDT 08/23/2022 8:01 AM EDT Milagros Hernandez MD POINT OF CARE TEST O RDERABLES Performing Organization Address [facility] Co de Phone Number [facility] [place] [address] * POCT Glucose (08/23/2022 4:22 AM EDT) Glucose, POC 173 65 - 199 mg/dL [facility] Comment: Supplemental ranges: <140 mg/dL before meals <180 mg/dL all other times of the day Blood 08/23/2022 4:22 AM EDT 08/23/2022 4:22 AM EDT Milagros Hernandez MD POINT OF CARE TEST O RDERABLES Performing Organization Address City/[facility] Co de Phone Number [facility] [place] [address] * POCT Glucose (08/23/2022 2:32 AM EDT) Pathologist [facility] Glucose, POC 181 65 - 199 mg/dL [facility] Comment: Supplemental ranges: <140 mg/dL before meals <180 mg/dL all other times of the day Blood 08/23/2022 2:32 AM EDT 08/23/2022 2:32 AM EDT Milagros Hernandez MD POINT OF CARE TEST O RDERABLES Performing Organization Address [facility] Co de Phone Number [facility] [place] [address] * Scan, Peripheral Blood (08/23/2022 2:30 AM EDT) [facility] Plat estimate Increased [facility] RBC Morphology Abnormal [facility] Microcyte 1-5 /HPF [facility] Hypochromia Slight [facility] Ovalocytes 1-5 /HPF [facility] Target Cells 1-5 /HPF [facility] Platelet Clumps Present [facility] Blood 08/23/2022 2:30 AM EDT 08/23/2022 2:42 AM EDT Narrative Resulting Agency Comment Spec In Lab Tyler Cobb MD HEMATOLOGY ORDERABLE S Performing Organization Address [facility] Co de Phone Number [facility] [place] [address] * (ABNORMAL) Differential, Automated (08/23/2022 2:30 AM EDT) [facility] Neutrophil % 79.7 % [facility] Neutrophil Absolute 13.27(H) 1.70 - 6.10 x10(3)/mc L [facility] Lymph % 9.2 % [facility] Lymphocytes Abs 1.5 0.9 - 3.2 x10(3)/mc L [facility] Monocyte % 7.8 % [facility] Monocyte Abs 1.3(H) 0.3 - 0.9 x10(3)/mc L [facility] Eos % 1.6 % [facility] Eosinophils Abs 0.3 0.0 - 0.4 x10(3)/mc L [facility] Basophil % 0.2 % [facility] Baso Absolute 0.0 0.0 - 0.1 x10(3)/mc L [facility] Immature Gran % 1.50 % [facility] Comment: Immature granulocytes(IG's)percentage and absolute count will include metamyelocytes, myelocytes, and promyelocytes. Blood smears from CBCs yielding IG's will be scanned manually for concordance. If this scan disagrees with the automated IG or if promyelocytes are noted, a manual differential will be performed. Immature Gran Absolute 0.25(H) 0.00 - 0.04 x10(3)/ L [facility] Blood 08/23/2022 2:30 AM EDT 08/23/2022 2:42 AM EDT Narrative Resulting Agency Comment Spec In Lab Tyler Cobb MD HEMATOLOGY ORDERABLE S Performing Organization Address City/State/[facility] Co de Phone Number [facility] [place] [address] * (ABNORMAL) Hemogram (08/23/2022 2:30 AM EDT) White Blood Cell 16.7(H) 4.0 - 9.5 x10(3)/mc L [facility] Red Blood Cell 3.98(L) 4.00 - 5.21 x10(6)/mc L [facility] Hemoglobin 8.7(L) 11.7 - 15.5 g/dL [facility] Hematocrit 27.6(L) 35.7 - 45.8 % [facility] Mean Cell Volume 69.3(L) 82.6 - 94.4 fL [facility] Mean Cell Hemoglobin 21.9(L) 27.1 - 32.0 pg [facility] Mean Cell Hemoglobin Concentration 31.5(L) 31.7 - 35.0 g/dL [facility] Platelet Not Measured 145 - 357 x10(3)/mc L [facility] Comment: Platelet clumps present. Estimate appears Increased. If numerical platelet count is necessary send both a Sodium Citrate tube and an EDTA tube for future platelet count orders. RDW Standard Deviation Not Measured 37.0 - 46.0 fL [facility] RDW coefficient of variation Not Measured 11.5 - 14.1 % [facility] Mean Platelet Volume Not Measured 7.6 - 12.9 fL [facility] NRBC% auto 0.2 % [facility] NRBC Absolute 0.040(H) 0.000 - 0.000 x10(3)/mc L [facility] Blood 08/23/2022 2:30 AM EDT 08/23/2022 2:42 AM EDT Narrative Resulting Agency Comment Spec In Lab Tyler Cobb MD HEMATOLOGY ORDERABLE S [facility] [place] [address] * (ABNORMAL) Basic Metabolic Panel (non-fasting) (08/23/2022 2:30 AM EDT) Glucose 195 65 - 199 mg/dL [facility] Comment:Diabetes: >=200 mg/d L plus symptoms Blood Urea Nitrogen 16 8 - 18 mg/dL [facility] Creatinine 0.53(L) 0.70 - 1.20 mg/dL [facility] Sodium 142 135 - 145 mmol/L [facility] Potassium 4.2 3.5 - 5.0 mmol/L [facility] Comment: Please note: ??Patients with WBC >100,000 may have falsely elevated Potassium levels. ??For accurate Potassium quantification in these patients send serum separator tube (gold top) for subsequent determinations. ??Contact the Clinical Chemistry Laboratory if there are any questions. Chloride 107 98 - 107 mmol/L [facility] Carbon Dioxide 27 22 - 31 mmol/L [facility] Anion Gap 8 5 - 15 mmol/L [facility] Calcium 8.5 8.5 - 10.5 mg/dL [facility] Est Glomerular Filtration Rate 105 >=60 mL/min/1. 73 m?? [facility] Comment: This patient's estimated GFR [...] Pascal MD CHEMISTRY ORDERABLES Performing Organization Address City/[facility] Co de Phone Number [facility] [place] [address] * Phosphorus (08/23/2022 2:30 AM EDT) Phosphorus 2.8 2.5 - 4.5 mg/dL [facility] Blood 08/23/2022 2:30 AM EDT 08/23/2022 2:42 AM EDT Narrative Resulting Agency Comment Spec In Lab Richard Pascal MD CHEMISTRY ORDERABLES Performing Organization Address [facility] Co de Phone Number [facility] [place] [address] * Magnesium (08/23/2022 2:30 AM EDT) Magnesium 0.80 0.69 - 1.07 mmol/L [facility] Blood 08/23/2022 2:30 AM EDT 08/23/2022 2:42 AM EDT Narrative Resulting Agency Comment Spec In Lab Richard Pascal MD CHEMISTRY ORDERABLES Performing Organization Address [facility] Co de Phone Number [facility] [place] [address] * POCT Glucose (08/23/2022 1:11 AM EDT) Glucose, POC 137 65 - 199 mg/dL [facility] Comment: Supplemental ranges: <140 mg/dL before meals <180 mg/dL all other times of the day Blood 08/23/2022 1:11 AM EDT 08/23/2022 1:11 AM EDT Milagros Hernandez MD POINT OF CARE TEST O GABRIELLA Performing Organization Address City/[facility] Co de Phone Number [facility] [place] [address] * POCT Glucose (08/23/2022 12:28 AM EDT) Glucose, POC 136 65 - 199 mg/dL [facility] Comment: Supplemental ranges: <140 mg/dL before meals <180 mg/dL all other times of the day Blood 08/23/2022 12:2 8 AM EDT 08/23/2022 12:28 AM EDT Milagros Hernandez MD POINT OF CARE TEST Chepe QUIROZ Performing Organization Address [facility] Co de Phone Number [facility] [place] [address] * POCT Glucose (08/22/2022 10:15 PM EDT) Glucose, POC 194 65 - 199 mg/dL [facility] Comment: Supplemental ranges: <140 mg/dL before meals <180 mg/dL all other times of the day Blood 08/22/2022 10:1 5 PM EDT 08/22/2022 10:15 PM EDT Milagros Hernandez MD POINT OF CARE TEST O GABRIELLA Performing Organization Address [facility] Co de Phone Number [facility] [place] [address] * POCT Glucose (08/22/2022 9:11 PM EDT) Glucose, POC 162 65 - 199 mg/dL [facility] Comment: Supplemental ranges: <140 mg/dL before meals <180 mg/dL all other times of the day Blood 08/22/2022 9:11 PM EDT 08/22/2022 9:11 PM EDT Milagros Hernandez MD POINT OF CARE TEST O RDERAREYMUNDO Performing Organization Address City/[facility]/ZIP Co de Phone Number [facility] [place] [address] * POCT Glucose (08/22/2022 6:47 PM EDT) Glucose, POC 181 65 - 199 mg/dL [facility] Comment: Supplemental ranges: <140 mg/dL before meals <180 mg/dL all other times of the day Blood 08/22/2022 6:47 PM EDT 08/22/2022 6:47 PM EDT iMlagros Hernandez MD POINT OF CARE TEST O HUGHERAREYMUNDO Performing Organization Address [facility] Co de Phone Number [facility] [place] [address] * POCT Glucose (08/22/2022 6:14 PM EDT) Glucose, POC 193 65 - 199 mg/dL [facility] Comment: Supplemental ranges: <140 mg/dL before meals <180 mg/dL all other times of the day Blood 08/22/2022 6:14 PM EDT 08/22/2022 6:14 PM EDT Milagros Hernandez MD POINT OF CARE TEST O GABRIELLA Performing Organization Address City/[facility]/ZIP Co de Phone Number [facility] [place] [address] * (ABNORMAL) POCT Glucose (08/22/2022 5:37 PM EDT) Glucose, POC 202(H) 65 - 199 mg/dL [facility] Comment: Supplemental ranges: <140 mg/dL before meals <180 mg/dL all other times of the day Blood 08/22/2022 5:37 PM EDT 08/22/2022 5:37 PM EDT Milagros Hernandez MD POINT OF CARE TEST O RDERABLES [facility] [place] [address] * (ABNORMAL) POCT Glucose (08/22/2022 4:17 PM EDT) Glucose, POC 207(H) 65 - 199 mg/dL [facility] Comment: Supplemental ranges: <140 mg/dL before meals <180 mg/dL all other times of the day Blood 08/22/2022 4:17 PM EDT 08/22/2022 4:17 PM EDT Milagros Hernandez MD POINT OF CARE TEST O RDAV Performing Organization Address [facility] Co de Phone Number [facility] [place] [address] * POCT Glucose (08/22/2022 2:01 PM EDT) Glucose, POC 147 65 - 199 mg/dL [facility] Comment: Supplemental ranges: <140 mg/dL before meals <180 mg/dL all other times of the day Blood 08/22/2022 2:01 PM EDT 08/22/2022 2:01 PM EDT Milagros Hernandez MD POINT OF CARE TEST O RDERAREYMUNDO Performing Organization Address [facility] Co de Phone Number [facility] [place] [address] * POCT Glucose (08/22/2022 12:10 PM EDT) Glucose, POC 121 65 - 199 mg/dL [facility] Comment: Supplemental ranges: <140 mg/dL before meals <180 mg/dL all other times of the day Blood 08/22/2022 12:1 0 PM EDT 08/22/2022 12:10 PM EDT Milagros Hernandez MD POINT OF CARE TEST O RDERAREYMUNDO Performing Organization Address City/[facility]/ZIP Co de Phone Number [facility] [place] [address] * Prepare RBC (08/22/2022 11:15 AM EDT) Dispensed? Yes [facility] Blood 08/22/2022 11:1 5 AM EDT 08/22/2022 11:11 AM EDT Milagros Hernandez MD BLOOD BANK PRODUCT O RDERABLES Performing Organization Address City/[facility]/ZIP Co de Phone Number [facility] [place] [address] * POCT Glucose (08/22/2022 10:03 AM EDT) Glucose, POC 145 65 - 199 mg/dL [facility] Comment: Supplemental ranges: <140 mg/dL before meals <180 mg/dL all other times of the day Blood 08/22/2022 10:0 3 AM EDT 08/22/2022 10:03 AM EDT Milagros Hernandez MD POINT OF CARE TEST O RDERAREYMUNDO Performing Organization Address [facility] Co de Phone Number [facility] [place] [address] * Type and Screen Validity (08/22/2022 9:00 AM EDT) T&S only valid at [facility] Comment:This Type and Screen result is only valid at the [facility] Blood 08/22/2022 9:00 AM EDT 08/22/2022 9:33 AM EDT Narrative Resulting Agency Comment Spec In Lab Reynaldo Avila MD BLOOD BANK LAB SUMI JONES Performing Organization Address [facility] Co de Phone Number [facility] [place] [address] * ABORH Recheck Status (08/22/2022 9:00 AM EDT) ABORH Recheck Order Order Placed [facility] ABORH Type Recheck Complete [facility] Blood 08/22/2022 9:00 AM EDT 08/22/2022 9:33 AM EDT Narrative Resulting Agency Comment Spec In Lab Reynaldo Avila MD BLOOD BANK LAB ORDYoli JONES Performing Organization Address City/[facility]/ZIP Co de Phone Number [facility] [place] [address] * Antibody screen (08/22/2022 9:00 AM EDT) Ab Screen Interp Negative [facility] Expires at [id number] on: 08/25/2022 [facility] Blood 08/22/2022 9:00 AM EDT 08/22/2022 9:33 AM EDT Narrative Resulting Agency Comment Spec In Lab Reynaldo Avila MD BLOOD BANK LAB SUMI JONES Performing Organization Address [facility] Co de Phone Number [facility] [place] [address] * ABO/Rh Typing (08/22/2022 9:00 AM EDT) ABORH Type O Pos [facility] Blood 08/22/2022 9:00 AM EDT 08/22/2022 9:33 AM EDT Narrative Resulting Agency Comment Spec In Lab Reynaldo Avila MD BLOOD BANK LAB ORDYoli JONES Performing Organization Address [facility] Co de Phone Number [facility] [place] [address] * POCT Glucose (08/22/2022 8:00 AM EDT) Glucose, POC 156 65 - 199 mg/dL [facility] Comment: Supplemental ranges: <140 mg/dL before meals <180 mg/dL all other times of the day Blood 08/22/2022 8:00 AM EDT 08/22/2022 8:00 AM EDT Milagros Hernandez MD POINT OF CARE TEST O RDERABLES [facility] [place] [address] * POCT Glucose (08/22/2022 5:53 AM EDT) Glucose, POC 154 65 - 199 mg/dL [facility] Comment: Supplemental ranges: <140 mg/dL before meals <180 mg/dL all other times of the day Blood 08/22/2022 5:53 AM EDT 08/22/2022 5:53 AM EDT Milagros Hernandez MD POINT OF CARE TEST O RDERABLES Performing Organization Address [facility] Co de Phone Number [facility] [place] [address] * POCT Glucose (08/22/2022 3:40 AM EDT) Glucose, POC 182 65 - 199 mg/dL [facility] Comment: Supplemental ranges: <140 mg/dL before meals <180 mg/dL all other times of the day Blood 08/22/2022 3:40 AM EDT 08/22/2022 3:40 AM EDT Milagros Hernandez MD POINT OF CARE TEST O RDERABLES Performing Organization Address [facility] Co de Phone Number [facility] [place] [address] * (ABNORMAL) Differential, Automated (08/22/2022 3:39 AM EDT) Neutrophil % 79.0 % [facility] Neutrophil Absolute 13.15(H) 1.70 - 6.10 x10(3)/mc L [facility] Lymph % 10.5 % [facility] Lymphocytes Abs 1.7 0.9 - 3.2 x10(3)/mc L [facility] Monocyte % 6.8 % [facility] Monocyte Abs 1.1(H) 0.3 - 0.9 x10(3)/mc L [facility] Eos % 0.9 % [facility] Eosinophils Abs 0.2 0.0 - 0.4 x10(3)/mc L [facility] Basophil % 0.2 % [facility] Baso Absolute 0.0 0.0 - 0.1 x10(3)/mc L [facility] Immature Gran % 2.60 % [facility] Comment: Immature granulocytes(IG's)percentage and absolute count will include metamyelocytes, myelocytes, and promyelocytes. Blood smears from CBCs yielding IG's will be scanned manually for concordance. If this scan disagrees with the automated IG or if promyelocytes are noted, a manual differential will be performed. Immature Gran Absolute 0.44(H) 0.00 - 0.04 x10(3)/ L [facility] Blood 08/22/2022 3:39 AM EDT 08/22/2022 3:47 AM EDT Narrative Resulting Agency Comment Spec In Lab Tyler Cobb MD HEMATOLOGY ORDERABLE S Performing Organization Address City/State/[facility] Co de Phone Number [facility] [place] [address] * (ABNORMAL) Hemogram (08/22/2022 3:39 AM EDT) White Blood Cell 16.6(H) 4.0 - 9.5 x10(3)/ L [facility] Red Blood Cell 3.54(L) 4.00 - 5.21 x10(6)/mc L [facility] Hemoglobin 7.1(L) 11.7 - 15.5 g/dL [facility] Hematocrit 23.7(L) 35.7 - 45.8 % [facility] Mean Cell Volume 66.9(L) 82.6 - 94.4 fL [facility] Mean Cell Hemoglobin 20.1(L) 27.1 - 32.0 pg [facility] Mean Cell Hemoglobin Concentration 30.0(L) 31.7 - 35.0 g/dL [facility] Platelet 445(H) 145 - 357 x10(3)/mc L [facility] RDW Standard Deviation 68.9(H) 37.0 - 46.0 fL [facility] RDW coefficient of variation 31.0(H) 11.5 - 14.1 % [facility] Mean Platelet Volume 10.2 7.6 - 12.9 fL [facility] NRBC% auto 0.2 % [facility] NRBC Absolute 0.040(H) 0.000 - 0.000 x10(3)/mc L [facility] Blood 08/22/2022 3:39 AM EDT 08/22/2022 3:47 AM EDT Narrative Resulting Agency Comment Spec In Lab Tyler Cobb MD HEMATOLOGY ORDERABLE S [facility] [place] [address] * (ABNORMAL) Basic Metabolic Panel (non-fasting) (08/22/2022 3:39 AM EDT) Glucose 191 65 - 199 mg/dL [facility] Comment:Diabetes: >=200 mg/d L plus symptoms Blood Urea Nitrogen 20(H) 8 - 18 mg/dL [facility] Creatinine 0.56(L) 0.70 - 1.20 mg/dL [facility] Sodium 145 135 - 145 mmol/L [facility] Potassium 4.1 3.5 - 5.0 mmol/L [facility] Comment: Please note: ??Patients with WBC >100,000 may have falsely elevated Potassium levels. ??For accurate Potassium quantification in these patients send serum separator tube (gold top) for subsequent determinations. ??Contact the Clinical Chemistry Laboratory if there are any questions. Chloride 111(H) 98 - 107 mmol/L [facility] Carbon Dioxide 27 22 - 31 mmol/L [facility] Anion Gap 7 5 - 15 mmol/L [facility] Calcium 8.7 8.5 - 10.5 mg/dL [facility] Est Glomerular Filtration Rate 103 >=60 mL/min/1. 73 m?? [facility] Comment: This patient's estimated GFR [...] Pascal MD CHEMISTRY ORDERABLES Performing Organization Address City/[facility] Co de Phone Number [facility] [place] [address] * (ABNORMAL) Phosphorus (08/22/2022 3:39 AM EDT) Pathologist [facility] Phosphorus 2.4(L) 2.5 - 4.5 mg/dL [facility] Blood 08/22/2022 3:39 AM EDT 08/22/2022 3:47 AM EDT Narrative Resulting Agency Comment Spec In Lab Richard Pascal MD CHEMISTRY ORDERABLES Performing Organization Address [facility] Co de Phone Number [facility] [place] [address] * Magnesium (08/22/2022 3:39 AM EDT) [facility] Magnesium 0.86 0.69 - 1.07 mmol/L [facility] Blood 08/22/2022 3:39 AM EDT 08/22/2022 3:47 AM EDT Narrative Resulting Agency Comment Spec In Lab Richard Pascal MD CHEMISTRY ORDERABLES Performing Organization Address [facility] Co de Phone Number [facility] [place] [address] * (ABNORMAL) POCT Glucose (08/22/2022 2:15 AM EDT) Glucose, POC 232(H) 65 - 199 mg/dL [facility] Comment: Supplemental ranges: <140 mg/dL before meals <180 mg/dL all other times of the day Blood 08/22/2022 2:15 AM EDT 08/22/2022 2:15 AM EDT Milagros Hernandez MD POINT OF CARE TEST O GABRIELLA [facility] [place] [address] * (ABNORMAL) POCT Glucose (08/22/2022 12:43 AM EDT) Glucose, POC 233(H) 65 - 199 mg/dL [facility] Comment: Supplemental ranges: <140 mg/dL before meals <180 mg/dL all other times of the day Blood 08/22/2022 12:4 3 AM EDT 08/22/2022 12:43 AM EDT Milagros Hernandez MD POINT OF CARE TEST O GABRIELLA Performing Organization Address [facility]/ZIP Co de Phone Number [facility] [place] [address] * XR Pelvis (Generic) (08/22/2022 12:19 AM [...] who have questions please contact the health infant childcare provider that requested your imaging first. ? Narrative [...] patients who have questions please contactthe health infant childcare provider that requested your imaging first. Electronically signed by: Richard Billings MD, [facility]([phone]), at 08/22/2022 10:25 AM Milagros Hernandez MD [...] who have questions please contact the health infant childcare provider that requested your imaging first. ? Electronically signed by: Viktor Cervantes MD, [facility] ([phone]), at 08/22/2022 12:43 PM Narrative 08/22/2022 12:43 [...] patients who have questions please contactthe health infant childcare provider that requested your imaging first. Milagros Hernandez MD IMG DX ORDERABLES * (ABNORMAL) POCT Glucose (08/21/2022 10:26 PM EDT) Glucose, POC 226(H) 65 - 199 mg/dL [facility] Comment: Supplemental ranges: <140 mg/dL before meals <180 mg/dL all other times of the day Blood 08/21/2022 10:2 6 PM EDT 08/21/2022 10:26 PM EDT Milagros Hernandez MD POINT OF CARE TEST O RDERAREYMUNDO Performing Organization Address City/[facility]/ZIP Co de Phone Number [facility] [place] [address] * POCT Glucose (08/21/2022 7:48 PM EDT) Glucose, POC 123 65 - 199 mg/dL [facility] Comment: Supplemental ranges: <140 mg/dL before meals <180 mg/dL all other times of the day Blood 08/21/2022 7:48 PM EDT 08/21/2022 7:48 PM EDT Milagros Hernandez MD POINT OF CARE TEST O RDERABLES Performing Organization Address [facility]/ZIP Co de Phone Number [facility] [place] [address] * POCT Glucose (08/21/2022 5:59 PM EDT) Glucose, POC 138 65 - 199 mg/dL [facility] Comment: Supplemental ranges: <140 mg/dL before meals <180 mg/dL all other times of the day Blood 08/21/2022 5:59 PM EDT 08/21/2022 5:59 PM EDT Milagros Hernandez MD POINT OF CARE TEST O RDERAREYMUNDO Performing Organization Address City/[facility]/ZIP Co de Phone Number [facility] [place] [address] * POCT Glucose (08/21/2022 5:06 PM EDT) Glucose, POC 152 65 - 199 mg/dL [facility] Comment: Supplemental ranges: <140 mg/dL before meals <180 mg/dL all other times of the day Blood 08/21/2022 5:06 PM EDT 08/21/2022 5:06 PM EDT Milagros Hernandez MD POINT OF CARE TEST O RDERABLES Performing Organization Address City/[facility]/ZIP Co de Phone Number [facility] [place] [address] * Cell Count, Bronchoalveolar Lavage (08/21/2022 4:50 PM EDT) Color BAL White [facility] Appearance, BAL Hazy [facility] NUC, BAL Count 422 mcL [facility] Seg BAL 87 % [facility] Lymph, BAL 10 % [facility] Macrophage BAL 2 % [facility] Eos, BAL 1 % [facility] Total Cells, BAL 200 Cells [facility] Bronchial Alveolar Lavage 08/21/2022 4:50 PM EDT 08/21/2022 5:37 PM EDT Narrative Resulting Agency Comment Spec In Lab Milagros Hernandez MD BODY FLUIDS AND STOO LS ORDERABLES Performing Organization Address [facility] Co de Phone Number [facility] [place] [address] * Calcofluor White Stain (08/21/2022 4:50 PM EDT) Calcofluor Stain Calcofluor White Preparation: Negative [facility] Bronchial Alveolar Lavage 08/21/2022 4:50 PM EDT 08/21/2022 5:37 PM EDT Comment:JACQUI Narrative Resulting Agency Comment Spec In Lab Reynaldo Avila MD MICROBIOLOGY - GENE RAL ORDERABLES Performing Organization Address [facility] Co de Phone Number [facility] [place] [address] * (ABNORMAL) Fungus culture (08/21/2022 4:50 PM EDT) Fungus Culture Rare Jacky albicans(A) [facility] Organism Jacky albicans(A) [facility] Bronchial Alveolar Lavage 08/21/2022 4:50 PM EDT 08/21/2022 5:37 PM EDT Comment:JACQUI Narrative Resulting Agency Comment Spec In Lab Reynaldo Avila MD MICROBIOLOGY - GENE RAL ORDERABLES [facility] [place] [address] * AFB culture Bronchial Alveolar Lavage (08/21/2022 4:50 PM EDT) Acid Fast Bacilli Culture No Acid Fast Bacilli isolated If active tuberculosis is suspected, the patient should be on [employer]. Call Infection Prevention for assistance if needed. [facility] Acid Fast Stain No Acid Fast Bacilli seen [facility] Bronchial Alveolar Lavage 08/21/2022 4:50 PM EDT 08/21/2022 5:37 PM EDT Comment:JACQUI Narrative Resulting Agency Comment Spec In Lab Milagros Hernandez MD MICROBIOLOGY - GENER AL ORDERABLES Performing Organization Address [facility] Co de Phone Number [facility] [place] [address] * Lower Respiratory Culture Bronchial Alveolar Lavage (08/21/2022 4:50 PM EDT) Lower Respiratory Culture Rare mixed bacterial morphotypes suggestive of normal upper respiratory wiley [facility] Gram Stain Few Neutrophils seen No squamous epithelial cells seen No microorganisms seen. [facility] Bronchial Alveolar Lavage 08/21/2022 4:50 PM EDT 08/21/2022 5:37 PM EDT Comment:JACQUI Narrative Resulting Agency Comment Spec In Lab Milagros Hernandez MD MICROBIOLOGY - GENER AL ORDERABLES Performing Organization Address City/[facility]/ZIP Co de Phone Number [facility] [place] [address] * Cell Count, Bronchoalveolar Lavage (08/21/2022 4:45 PM EDT) Color BAL White [facility] Appearance, BAL Cloudy [facility] NUC, BAL Count 1,471 mcL [facility] Seg BAL 81 % [facility] Lymph, BAL 17 % [facility] Macrophage BAL 2 % [facility] Total Cells, BAL 200 Cells [facility] Bronchial Alveolar Lavage 08/21/2022 4:45 PM EDT 08/21/2022 5:36 PM EDT Narrative Resulting Agency Comment Spec In Lab Aileen Mayorga MD BODY FLUIDS AND STOO LS ORDERABLES Performing Organization Address City/[facility]/ZIP Co de Phone Number [facility] [place] [address] * Calcofluor White Stain (08/21/2022 4:45 PM EDT) Calcofluor Stain Calcofluor White Preparation: Negative [facility] Bronchial Alveolar Lavage 08/21/2022 4:45 PM EDT 08/21/2022 5:39 PM EDT Narrative Resulting Agency Comment Spec In Lab Reynaldo Avila MD MICROBIOLOGY - GENE RAL ORDERABLES Performing Organization Address [facility]/[place] [address] * (ABNORMAL) Fungus culture (08/21/2022 4:45 PM EDT) Fungus Culture Rare Jacky albicans(A) [facility] Organism Jacky albicans(A) [facility] Bronchial Alveolar Lavage 08/21/2022 4:45 PM EDT 08/21/2022 5:39 PM EDT Narrative Resulting Agency Comment Spec In Lab Reyanldo Avila MD MICROBIOLOGY - GENE RAL ORDERABLES Performing Organization Address City/[facility]/ZIP Co de Phone Number [facility] [place] [address] * AFB culture Bronchial Alveolar Lavage (08/21/2022 4:45 PM EDT) Acid Fast Bacilli Culture No Acid Fast Bacilli isolated If active tuberculosis is suspected, the patient should be on [employer]. Call Infection Prevention for assistance if needed. [facility] Acid Fast Stain No Acid Fast Bacilli seen [facility] Bronchial Alveolar Lavage 08/21/2022 4:45 PM EDT 08/21/2022 5:39 PM EDT Narrative Resulting Agency Comment Spec In Lab Milagros Hernandez MD MICROBIOLOGY - GENER AL ORDERABLES Performing Organization Address [facility] Co de Phone Number [facility] [place] [address] * Lower Respiratory Culture Bronchial Alveolar Lavage (08/21/2022 4:45 PM EDT) Lower Respiratory Culture Rare mixed bacterial morphotypes suggestive of normal upper respiratory wiley [facility] Gram Stain Moderate Neutrophils seen No squamous epithelial cells seen No microorganisms seen. [facility] Bronchial Alveolar Lavage 08/21/2022 4:45 PM EDT 08/21/2022 5:39 PM EDT Narrative Resulting Agency Comment Spec In Lab Milagros Hernandez MD MICROBIOLOGY - GENER AL ORDERABLES Performing Organization Address [facility] [place] [address] * Potassium (08/21/2022 3:45 PM EDT) Potassium 3.9 3.5 - 5.0 mmol/L [facility] Comment: Please note: ??Patients with [...] Pascal MD CHEMISTRY ORDERABLES Performing Organization Address City/[facility] Co de Phone Number [facility] [place] [address] * POCT Glucose (08/21/2022 3:24 PM EDT) Glucose, POC 148 65 - 199 mg/dL [facility] Comment: Supplemental ranges: <140 mg/dL before meals <180 mg/dL all other times of the day Blood 08/21/2022 3:24 PM EDT 08/21/2022 3:24 PM EDT Milagros Hernandez MD POINT OF CARE TEST O RDERABLES [facility] [place] [address] * IR Ultrasound in IR (08/21/2022 3:09 [...] Glucose, POC 191 65 - 199 mg/dL [facility] Comment: Supplemental ranges: <140 mg/dL before meals <180 mg/dL all other times of the day Blood 08/21/2022 1:34 PM EDT 08/21/2022 1:34 PM EDT Milagros Hernandez MD POINT OF CARE TEST O RDERABLES Performing Organization Address [facility] Co de Phone Number [facility] [place] [address] * POCT Glucose (08/21/2022 12:58 PM EDT) Glucose, POC 196 65 - 199 mg/dL [facility] Comment: Supplemental ranges: <140 mg/dL before meals <180 mg/dL all other times of the day Blood 08/21/2022 12:5 8 PM EDT 08/21/2022 12:58 PM EDT Milagros Hernandez MD POINT OF CARE TEST O RDERABLES Performing Organization Address [facility] Co de Phone Number [facility] [place] [address] * (ABNORMAL) CRP, acute inflammation (08/21/2022 12:00 PM EDT) C-Reactive Protein 19.4(H) <=4.9 mg/L [facility] Blood 08/21/2022 12:0 0 PM EDT 08/21/2022 12:24 PM EDT Narrative Resulting Agency Comment Spec In Lab Milagros Hernandez MD CHEMISTRY ORDERABLES Performing Organization Address City/[facility]/ZIP Co de Phone Number [facility] [place] [address] * (ABNORMAL) Sedimentation rate (08/21/2022 12:00 PM EDT) Sedimentation Rate Automated >119(H) 2 - 39 mm/hr [facility] Comment: Effective April 19, 2019 new capillary photometric technology has resulted in a change in reference ranges. It is recommended that each ESR result be reviewed with its own age appropriate reference range. Blood 08/21/2022 12:0 0 PM EDT 08/21/2022 12:24 PM EDT Narrative Resulting Agency Comment Spec In Lab Milagros Hernandez MD HEMATOLOGY ORDERABLE S Performing Organization Address [facility]/ZIP Co de Phone Number [facility] [place] [address] * POCT Glucose (08/21/2022 11:56 AM EDT) Pathologist [facility] Glucose, POC 182 65 - 199 mg/dL [facility] Comment: Supplemental ranges: <140 mg/dL before meals <180 mg/dL all other times of the day Blood 08/21/2022 11:5 6 AM EDT 08/21/2022 11:56 AM EDT Milagros Hernandez MD POINT OF CARE TEST O RDERABLES Performing Organization Address [facility] Co de Phone Number [facility] [place] [address] * Potassium (08/21/2022 10:00 AM EDT) Potassium 4.4 3.5 - 5.0 mmol/L [facility] Comment: Please note: ??Patients with [...] Cobb MD CHEMISTRY ORDERABLES Performing Organization Address City/[facility] Co de Phone Number [facility] [place] [address] * Ferritin (08/21/2022 10:00 AM EDT) Pathologist [facility] Ferritin 85 30 - 400 ng/mL [facility] Comment: Pediatric reference ranges not verified at [facility], interpret with caution. Reference ranges for females greater than 50 years of age approach values for men, i.e., 30-400 ng/mL. Blood 08/21/2022 10:0 0 AM EDT 08/21/2022 10:12 AM EDT Narrative Resulting Agency Comment Spec In Lab Carlos Terry MD CHEMISTRY ORDERABLES Performing Organization Address [facility] Co de Phone Number [facility] [place] [address] * (ABNORMAL) Iron and TIBC (08/21/2022 10:00 AM EDT) [facility] Iron 25(L) 30 - 150 mcg/dL [facility] TIBC 203(L) 250 - 450 mcg/dL [facility] Iron Saturation 12(L) 20 - 50 % [facility] Blood 08/21/2022 10:0 0 AM EDT 08/21/2022 10:12 AM EDT Narrative Resulting Agency Comment Spec In Lab Carlos Terry MD CHEMISTRY ORDERABLES Performing Organization Address City/[facility]/ZIP Co de Phone Number [facility] [place] [address] * Histoplasma Antigen, Urine (08/21/2022 10:00 AM EDT) [facility] U Histoplasma Ag (MAY) Not Detected Not Detected [facility] Comment: No Histoplasma antigen detected. False negative results may occur. ??Repeat testing on a new specimen should be considered if clinically indicated. Test Performed by: [facility] [address] [place] [id number] [employer]iner: [place] Leone M.D. Ph.D.; CLIA# [id number] U Histo Ag Value (MAY) Not Detected ng/mL [facility] Comment: ADDITIONAL INFORMATION This test has been modified from the solar project manager's instructions. Its performance characteristics were determined by [facility] in a manner consistent with CLIA requirements. This test has not been cleared or approved by the U.S. Food and Drug Administration. Test Performed by: [facility] [address] [place] [address] [employer]iner: [place] Leone M.D. Ph.D.; CLIA# [id number] Urine 08/21/2022 10:0 0 AM EDT 08/21/2022 1:15 PM EDT Narrative Resulting Agency Comment Spec In Lab Carlos Terry MD LAB SEND OUT ORDERAB LES Performing Organization Address [facility] Co de Phone Number [facility] [place] [address] * POCT Glucose (08/21/2022 9:57 AM EDT) Glucose, POC 141 65 - 199 mg/dL [facility] Comment: Supplemental ranges: <140 mg/dL before meals <180 mg/dL all other times of the day Blood 08/21/2022 9:57 AM EDT 08/21/2022 9:57 AM EDT Milagros Hernandez MD POINT OF CARE TEST O RDERABLES Performing Organization Address [facility] Co de Phone Number [facility] [place] [address] * Aspergillus Antigen (08/21/2022 8:30 AM EDT) Aspergillus Ag (SEPTEMBER) <0.500 <0.5 Index [facility] Comment: ADDITIONAL INFORMATION This is a qualitative test and the resulted index value is not indicative of disease severity. ??Serial testing is recommended for patients at high risk for invasive aspergillosis. This assay was performed using the FDA-cleared Bio-Rad Platelia Aspergillus Galactomannan EIA. Test Performed by: [facility] - [place] [id number] Salt Refiner: [place] Leone M.D. Ph.D.; CLIA# [id number] Blood 08/21/2022 8:30 AM EDT 08/21/2022 1:15 PM EDT Narrative Resulting Agency Comment Spec In Lab Carlos Terry MD LAB SEND OUT ORDERAB LES Performing Organization Address [facility]/ZIP Co de Phone Number [facility] [place] [address] * POCT Glucose (08/21/2022 8:28 AM EDT) Glucose, POC 118 65 - 199 mg/dL [facility] Comment: Supplemental ranges: <140 mg/dL before meals <180 mg/dL all other times of the day Blood 08/21/2022 8:28 AM EDT 08/21/2022 8:28 AM EDT Carlos Terry MD POINT OF CARE TEST O RDERABLES Performing Organization Address [facility] Co de Phone Number [facility] [place] [address] * (ABNORMAL) Fungitell (1,7-Mqef-G-Glucan) (08/21/2022 8:00 AM EDT) Fungitell Quantitative Value (MAY) >500(A) <60 pg/mL pg/mL [facility] Comment: Test Performed by: [facility] [employer] - [address] [address] Salt Refiner: [place] Leone M.D. Ph.D.; CLIA# [id number] Fungitell Qualitative Result (MAY) Positive (A) Negative [facility] Comment: (1, 3) Wchm-S-Bcanco detected. A single positive result should be [...] produce very low levels of (1, 3) Qpdg-R-Ailikp (BDG) and the Mucorales (e.g., Lichthemia, Mucor and Rhizopus), which are not known to produce BDG. Additionally, the yeast phase of Blastomyces dermatitidis produces little BDG and may not be detected by this assay. ADDITIONAL INFORMATION This assay was performed using the FDA-cleared Fungitell Assay ([facility], [place], [place], [place]), a kinetic DALILA based on modification of the Limulus Amebocyte Lysate pathway. Test Performed by: [place] [address] Salt Refiner: [place] Leone M.D. Ph.D.; CLIA# [id number] Blood 08/21/2022 8:00 AM EDT 08/21/2022 1:15 PM EDT Narrative Resulting Agency Comment Spec In Lab Carlos Terry MD LAB SEND OUT ORDERAB LES [facility] [place] [address] * POCT Glucose (08/21/2022 7:50 AM EDT) Glucose, POC 130 65 - 199 mg/dL [facility] Comment: Supplemental ranges: <140 mg/dL before meals <180 mg/dL all other times of the day Blood 08/21/2022 7:50 AM EDT 08/21/2022 7:50 AM EDT Carlos Terry MD POINT OF CARE TEST O RDERABLES Performing Organization Address City/[facility] Co de Phone Number [facility] [place] [address] * POCT Glucose (08/21/2022 6:06 AM EDT) Glucose, POC 141 65 - 199 mg/dL [facility] Comment: Supplemental ranges: <140 mg/dL before meals <180 mg/dL all other times of the day Blood 08/21/2022 6:06 AM EDT 08/21/2022 6:06 AM EDT Carlos Terry MD POINT OF CARE TEST O RDERABLES Performing Organization Address [facility] Co de Phone Number [facility] [place] [address] * POCT Glucose (08/21/2022 3:48 AM EDT) Glucose, POC 187 65 - 199 mg/dL [facility] Comment: Supplemental ranges: <140 mg/dL before meals <180 mg/dL all other times of the day Blood 08/21/2022 3:48 AM EDT 08/21/2022 3:48 AM EDT Carlos Terry MD POINT OF CARE TEST O RDERABLES Performing Organization Address City/[facility] Co de Phone Number [facility] [place] [address] * (ABNORMAL) Differential, Automated (08/21/2022 3:46 AM EDT) Neutrophil % 79.8 % [facility] Neutrophil Absolute 16.69(H) 1.70 - 6.10 x10(3)/mc L [facility] Lymph % 9.2 % [facility] Lymphocytes Abs 1.9 0.9 - 3.2 x10(3)/mc L [facility] Monocyte % 6.2 % [facility] Monocyte Abs 1.3(H) 0.3 - 0.9 x10(3)/mc L [facility] Eos % 0.3 % [facility] Eosinophils Abs 0.1 0.0 - 0.4 x10(3)/ L [facility] Basophil % 0.2 % [facility] Baso Absolute 0.0 0.0 - 0.1 x10(3)/mc L [facility] Immature Gran % 4.30 % [facility] Comment: Immature granulocytes(IG's)percentage and absolute count will include metamyelocytes, myelocytes, and promyelocytes. Blood smears from CBCs yielding IG's will be scanned manually for concordance. If this scan disagrees with the automated IG or if promyelocytes are noted, a manual differential will be performed. Immature Gran Absolute 0.89(H) 0.00 - 0.04 x10(3)/ L [facility] Blood 08/21/2022 3:46 AM EDT 08/21/2022 3:58 AM EDT Narrative Resulting Agency Comment Spec In Lab Tyler Cobb MD HEMATOLOGY ORDERABLE S [facility] [place] [address] * (ABNORMAL) Hemogram (08/21/2022 3:46 AM EDT) White Blood Cell 20.9(H) 4.0 - 9.5 x10(3)/mc L [facility] Red Blood Cell 3.68(L) 4.00 - 5.21 x10(6)/mc L [facility] Hemoglobin 7.4(L) 11.7 - 15.5 g/dL [facility] Hematocrit 24.2(L) 35.7 - 45.8 % [facility] Mean Cell Volume 65.8(L) 82.6 - 94.4 fL [facility] Mean Cell Hemoglobin 20.1(L) 27.1 - 32.0 pg [facility] Mean Cell Hemoglobin Concentration 30.6(L) 31.7 - 35.0 g/dL [facility] Platelet 381(H) 145 - 357 x10(3)/mc L [facility] RDW Standard Deviation 67.2(H) 37.0 - 46.0 fL [facility] RDW coefficient of variation 30.4(H) 11.5 - 14.1 % [facility] Mean Platelet Volume 10.1 7.6 - 12.9 fL [facility] NRBC% auto 0.5 % [facility] NRBC Absolute 0.110(H) 0.000 - 0.000 x10(3)/mc L [facility] Blood 08/21/2022 3:46 AM EDT 08/21/2022 3:58 AM EDT Narrative Resulting Agency Comment Spec In Lab Tyler Cobb MD HEMATOLOGY ORDERABLE S [facility] [place] [address] * (ABNORMAL) Basic Metabolic Panel (non-fasting) (08/21/2022 3:46 AM EDT) Glucose 188 65 - 199 mg/dL [facility] Comment:Diabetes: >=200 mg/d L plus symptoms Blood Urea Nitrogen 22(H) 8 - 18 mg/dL [facility] Creatinine 0.60(L) 0.70 - 1.20 mg/dL [facility] Sodium 145 135 - 145 mmol/L [facility] Potassium 3.7 3.5 - 5.0 mmol/L [facility] Comment: Please note: ??Patients with WBC >100,000 may have falsely elevated Potassium levels. ??For accurate Potassium quantification in these patients send serum separator tube (gold top) for subsequent determinations. ??Contact the Clinical Chemistry Laboratory if there are any questions. Chloride 107 98 - 107 mmol/L [facility] Carbon Dioxide 31 22 - 31 mmol/L [facility] Anion Gap 7 5 - 15 mmol/L [facility] Calcium 8.7 8.5 - 10.5 mg/dL [facility] Est Glomerular Filtration Rate 101 >=60 mL/min/1. 73 m?? [facility] Comment: This patient's estimated GFR [...] Pascal MD CHEMISTRY ORDERABLES Performing Organization Address [facility] Co de Phone Number [facility] [place] [address] * (ABNORMAL) Phosphorus (08/21/2022 3:46 AM EDT) Phosphorus 2.4(L) 2.5 - 4.5 mg/dL [facility] Blood 08/21/2022 3:46 AM EDT 08/21/2022 3:58 AM EDT Narrative Resulting Agency Comment Spec In Lab Richard Pascal MD CHEMISTRY ORDERABLES Performing Organization Address [facility]/ZIP Co de Phone Number [facility] [place] [address] * Magnesium (08/21/2022 3:46 AM EDT) Magnesium 0.87 0.69 - 1.07 mmol/L [facility] Blood 08/21/2022 3:46 AM EDT 08/21/2022 3:58 AM EDT Narrative Resulting Agency Comment Spec In Lab Richard Pascal MD CHEMISTRY ORDERABLES Performing Organization Address City/[facility]/ZIP Co de Phone Number [facility] [place] [address] * (ABNORMAL) Lipase (08/21/2022 3:46 AM EDT) Lipase 178(H) 0 - 60 unit/L [facility] Blood 08/21/2022 3:46 AM EDT 08/21/2022 3:58 AM EDT Narrative Resulting Agency Comment Spec In Lab Carlos Terry MD CHEMISTRY ORDERABLES Performing Organization Address [facility] Co de Phone Number [facility] [place] [address] * POCT Glucose (08/21/2022 1:57 AM EDT) Glucose, POC 167 65 - 199 mg/dL [facility] Comment: Supplemental ranges: <140 mg/dL before meals <180 mg/dL all other times of the day Blood 08/21/2022 1:57 AM EDT 08/21/2022 1:57 AM EDT Carlos Terry MD POINT OF CARE TEST O RDERABLES Performing Organization Address [facility] Co de Phone Number [facility] [place] [address] * (ABNORMAL) POCT Glucose (08/20/2022 11:55 PM EDT) Glucose, POC 221(H) 65 - 199 mg/dL [facility] Comment: Supplemental ranges: <140 mg/dL before meals <180 mg/dL all other times of the day Blood 08/20/2022 11:5 5 PM EDT 08/20/2022 11:55 PM EDT Carlos Terry MD POINT OF CARE TEST O RDERABLES Performing Organization Address [facility] Co de Phone Number [facility] [place] [address] * CT Chest w Contrast (08/20/2022 11:04 [...] who have questions please contact the health infant childcare provider that requested your imaging first. ? Electronically signed by: Jagdeep Lee MD, [facility] ([phone]), at 08/21/2022 6:56 AM Narrative 08/21/2022 6:56 [...] the diaphragm with tip not included the [id number]-[id number]. There is some wall thickening of the [...] the duodenum, not fully included in the jvopi-gw-ynch. Skeletal structures: No acute osseous findings. No [...] below the diaphragmwith tip not included the msovz-lf-ewpo. There is some wall thickening of theesophagus. [...] portion the duodenum,not fully included in the [id number]-[id number]. Skeletal structures: No acute osseous findings. No [...] patients who have questions please contactthe health infant childcare provider that requested your imaging first. Electronically signed by: Jagdeep Lee MD, [facility]([phone]), at 08/21/2022 6:56 AM Carlos Terry MD [...] who have questions please contact the health infant childcare provider that requested your imaging first. ? Electronically signed by: Aicha Chowdhury MD, [facility] ([phone]), at 08/21/2022 9:34 AM Narrative 08/21/2022 9:34 [...] hip performed after administration of 110 mL [id number]. Coronal and sagittal reformats were obtained. COMPARISON: CT left left lower extremity 08/08/22. Hip radiograph 09/06/2022,intraprocedural radiograph -. FINDINGS: Bones/joints: Status post left femoral neck [...] 1.8 cm (series 9, image 251 and [id number], image 46), without rim enhancement to suggest [...] patients who have questions please contactthe health infant childcare provider that requested your imaging first. Electronically signed by: Aicha Chowdhury MD, [facility]([phone]), at 08/21/2022 9:34 AM Carlos Terry MD IMG CT ORDERABLES * POCT Glucose (08/20/2022 9:54 PM EDT) Glucose, POC 195 65 - 199 mg/dL [facility] Comment: Supplemental ranges: <140 mg/dL before meals <180 mg/dL all other times of the day Blood 08/20/2022 9:54 PM EDT 08/20/2022 9:54 PM EDT Carlos Terry MD POINT OF CARE TEST O RDERAREYMUNDO Performing Organization Address City/[facility] Co de Phone Number [facility] [place] [address] * POCT Glucose (08/20/2022 8:46 PM EDT) Glucose, POC 118 65 - 199 mg/dL [facility] Comment: Supplemental ranges: <140 mg/dL before meals <180 mg/dL all other times of the day Blood 08/20/2022 8:46 PM EDT 08/20/2022 8:46 PM EDT Carlos Terry MD POINT OF CARE TEST O RDERAREYMUNDO [facility] [place] [address] * POCT Glucose (08/20/2022 6:21 PM EDT) Glucose, POC 164 65 - 199 mg/dL [facility] Comment: Supplemental ranges: <140 mg/dL before meals <180 mg/dL all other times of the day Blood 08/20/2022 6:21 PM EDT 08/20/2022 6:21 PM EDT Carlos Terry MD POINT OF CARE TEST O RDERABLES Performing Organization Address City/[facility]/ZIP Co de Phone Number [facility] [place] [address] * POCT Glucose (08/20/2022 4:27 PM EDT) Glucose, POC 180 65 - 199 mg/dL [facility] Comment: Supplemental ranges: <140 mg/dL before meals <180 mg/dL all other times of the day Blood 08/20/2022 4:27 PM EDT 08/20/2022 4:27 PM EDT Carlos Terry MD POINT OF CARE TEST O RDERAREYMUNDO Performing Organization Address [facility] Co de Phone Number [facility] [place] [address] * POCT Glucose (08/20/2022 2:11 PM EDT) Glucose, POC 150 65 - 199 mg/dL [facility] Comment: Supplemental ranges: <140 mg/dL before meals <180 mg/dL all other times of the day Blood 08/20/2022 2:11 PM EDT 08/20/2022 2:11 PM EDT Carlos Terry MD POINT OF CARE TEST O RDERABLES Performing Organization Address City/[facility] Co de Phone Number [facility] [place] [address] * (ABNORMAL) Hepatic Function Panel (08/20/2022 2:00 PM EDT) Protein, Total 5.6(L) 6.1 - 8.0 g/dL [facility] Albumin 2.5(L) 3.2 - 5.2 g/dL [facility] Aspartate Aminotransferase 39(H) 0 - 30 unit/L [facility] Alanine Aminotransferase 20 0 - 30 unit/L [facility] Alkaline Phosphatase 213(H) 35 - 105 unit/L [facility] Bilirubin, Total <0.2(L) 0.2 - 1.3 mg/dL [facility] Bilirubin, Direct 0.1 0.0 - 0.3 mg/dL [facility] Blood 08/20/2022 2:00 PM EDT 08/20/2022 2:20 PM EDT Narrative Resulting Agency Comment Spec In Lab Carlos Terry MD CHEMISTRY ORDERABLES Performing Organization Address [facility] Co de Phone Number [facility] [place] [address] * TSH Brinson (08/20/2022 2:00 PM EDT) Thyroid Stimulating Hormone 1.90 0.27 - 4.20 mcIU/mL [facility] Comment: Reference Interval (mcIU/mL): Females: ??First Trimester: 0.23-3.88 ??Second Trimester: 0.22-3.90 ??Third Trimester: 0.44-4.66 Blood 08/20/2022 2:00 PM EDT 08/20/2022 2:20 PM EDT Narrative Resulting Agency Comment Spec In Lab Carlos Terry MD CHEMISTRY ORDERABLES Performing Organization Address [facility] Co de Phone Number [facility] [place] [address] * POCT Glucose (08/20/2022 12:13 PM EDT) Glucose, POC 163 65 - 199 mg/dL [facility] Comment: Supplemental ranges: <140 mg/dL before meals <180 mg/dL all other times of the day Blood 08/20/2022 12:1 3 PM EDT 08/20/2022 12:13 PM EDT Carlos Terry MD POINT OF CARE TEST O RDERABLES Performing Organization Address City/[facility] Co de Phone Number [facility] [place] [address] * POCT Glucose (08/20/2022 10:05 AM EDT) Glucose, POC 196 65 - 199 mg/dL [facility] Comment: Supplemental ranges: <140 mg/dL before meals <180 mg/dL all other times of the day Blood 08/20/2022 10:0 5 AM EDT 08/20/2022 10:05 AM EDT Carlos Terry MD POINT OF CARE TEST O RDERABLES [facility] [place] [address] * (ABNORMAL) POCT Glucose (08/20/2022 7:26 AM EDT) Glucose, POC 233(H) 65 - 199 mg/dL [facility] Comment: Supplemental ranges: <140 mg/dL before meals <180 mg/dL all other times of the day Blood 08/20/2022 7:26 AM EDT 08/20/2022 7:26 AM EDT Carlos Terry MD POINT OF CARE TEST O RDERABLES Performing Organization Address City/[facility]/ZIP Co de Phone Number [facility] [place] [address] * POCT Glucose (08/20/2022 6:31 AM EDT) Glucose, POC 190 65 - 199 mg/dL [facility] Comment: Supplemental ranges: <140 mg/dL before meals <180 mg/dL all other times of the day Blood 08/20/2022 6:31 AM EDT 08/20/2022 6:31 AM EDT Carlos Terry MD POINT OF CARE TEST O RDERABLES [facility] [place] [address] * (ABNORMAL) BLOOD GAS 2 ARTERIAL (08/20/2022 5:41 AM EDT) pH, Arterial 7.56(H) 7.35 - 7.45 [facility] PCO2, Arterial 31(L) 35 - 45 mmHg [facility] PO2, Arterial 92 85 - 104 mmHg [facility] Bicarbonate, Arterial 27.3(H) 20.0 - 26.0 mmol/L [facility] Base Excess, Arterial 5.0(H) -3.0 - 3.0 mmol/L [facility] Hgb Blood Gas 8.5(L) 11.7 - 15.5 g/dL [facility] Oxyhemoglobin, Arterial 96.0 94.0 - 97.0 % [facility] Carboxyhemoglob in, Arterial 0.3 % [facility] Comment: Nonsmokers: 0.5-1.5% COHB Smokers: Variable, but usually less than 10% Toxic: 20-30% COHB Lethal: Greater than 60% COHB Methemoglobin, Arterial 0.9 <=1.5 % [facility] Na Whole Blood 141 135 - 145 mmol/L [facility] K Whole Blood 3.6 3.5 - 5.0 mmol/L [facility] Comment: Please note: Patients with WBC >100,000 may have falsely elevated Potassium levels. Contact the Clinical Chemistry Laboratory if there are any questions. ICa Whole Blood 1.15 1.15 - 1.33 mmol/L [facility] Comment: Note: ??Total bilirubin higher than 20 mg/dL may lead to falsely low ionized calcium. CL Whole Blood 110(H) 98 - 107 mmol/L [facility] Gluc Whole Bld 160 65 - 199 mg/dL [facility] Comment:Diabetes: >=200 mg/d L plus symptoms. Lactate WB 1.6 0.5 - 2.2 mmol/L [facility] FIO2 Art 30 % [facility] PF Ratio Art 307 [facility] Blood 08/20/2022 5:41 AM EDT 08/20/2022 5:41 AM EDT Carlos Terry MD POINT OF CARE TEST O RDERABLES [facility] [place] [address] * POCT Glucose (08/20/2022 4:29 AM EDT) Glucose, POC 114 65 - 199 mg/dL [facility] Comment: Supplemental ranges: <140 mg/dL before meals <180 mg/dL all other times of the day Blood 08/20/2022 4:29 AM EDT 08/20/2022 4:29 AM EDT Carlos Terry MD POINT OF CARE TEST O RDERABLES Performing Organization Address [facility] Co de Phone Number [facility] [place] [address] * POCT Glucose (08/20/2022 3:53 AM EDT) Glucose, POC 114 65 - 199 mg/dL [facility] Comment: Supplemental ranges: <140 mg/dL before meals <180 mg/dL all other times of the day Blood 08/20/2022 3:53 AM EDT 08/20/2022 3:53 AM EDT Carlos Terry MD POINT OF CARE TEST O RDERABLES Performing Organization Address [facility]/ZIP Co de Phone Number [facility] [place] [address] * POCT Glucose (08/20/2022 2:05 AM EDT) Glucose, POC 140 65 - 199 mg/dL [facility] Comment: Supplemental ranges: <140 mg/dL before meals <180 mg/dL all other times of the day Blood 08/20/2022 2:05 AM EDT 08/20/2022 2:05 AM EDT Carlos Terry MD POINT OF CARE TEST O RDERABLES [facility] [place] [address] * Scan, Peripheral Blood (08/20/2022 12:30 AM EDT) Plat estimate Normal [facility] RBC Morphology Abnormal [facility] Macrocyte 1-5 /HPF [facility] Microcyte gtr than 10 /HPF [facility] Hypochromia Moderate [facility] Polychromasia Present >5/HPF [facility] Ovalocytes 1-5 /HPF [facility] Target Cells 1-5 /HPF [facility] Blood 08/20/2022 12:3 0 AM EDT 08/20/2022 12:32 AM EDT Narrative Resulting Agency Comment Spec In Lab Tyler Cobb MD HEMATOLOGY ORDERABLE S [facility] [place] [address] * (ABNORMAL) Differential, Automated (08/20/2022 12:30 AM EDT) Neutrophil % 77.6 % [facility] Neutrophil Absolute 21.72(H) 1.70 - 6.10 x10(3)/mc L [facility] Lymph % 8.3 % [facility] Lymphocytes Abs 2.3 0.9 - 3.2 x10(3)/mc L [facility] Monocyte % 6.5 % [facility] Monocyte Abs 1.8(H) 0.3 - 0.9 x10(3)/mc L [facility] Eos % 0.2 % [facility] Eosinophils Abs 0.0 0.0 - 0.4 x10(3)/mc L [facility] Basophil % 0.3 % [facility] Baso Absolute 0.1 0.0 - 0.1 x10(3)/mc L [facility] Immature Gran % 7.10 % [facility] Comment: Immature granulocytes(IG's)percentage and absolute count will include metamyelocytes, myelocytes, and promyelocytes. Blood smears from CBCs yielding IG's will be scanned manually for concordance. If this scan disagrees with the automated IG or if promyelocytes are noted, a manual differential will be performed. Immature Gran Absolute 2.00(H) 0.00 - 0.04 x10(3)/mc L [facility] Blood 08/20/2022 12:3 0 AM EDT 08/20/2022 12:32 AM EDT Narrative Resulting Agency Comment Spec In Lab Tyler Cobb MD HEMATOLOGY ORDERABLE S [facility] [place] [address] * (ABNORMAL) Hemogram (08/20/2022 12:30 AM EDT) White Blood Cell 28.0(H) 4.0 - 9.5 x10(3)/ L [facility] Red Blood Cell 4.08 4.00 - 5.21 x10(6)/[facility] Hemoglobin 8.2(L) 11.7 - 15.5 g/dL [facility] Hematocrit 26.4(L) 35.7 - 45.8 % [facility] Mean Cell Volume 64.7(L) 82.6 - 94.4 fL [facility] Mean Cell Hemoglobin 20.1(L) 27.1 - 32.0 pg [facility] Mean Cell Hemoglobin Concentration 31.1(L) 31.7 - 35.0 g/dL [facility] Platelet 351 145 - 357 x10(3)/ L [facility] RDW Standard Deviation 63.9(H) 37.0 - 46.0 fL [facility] RDW coefficient of variation 29.8(H) 11.5 - 14.1 % [facility] Mean Platelet Volume 10.1 7.6 - 12.9 fL [facility] NRBC% auto 0.8 % [facility] NRBC Absolute 0.230(H) 0.000 - 0.000 x10(3)/mc L [facility] Blood 08/20/2022 12:3 0 AM EDT 08/20/2022 12:32 AM EDT Narrative Resulting Agency Comment Spec In Lab Tyler Cobb MD HEMATOLOGY ORDERABLE S Performing Organization Address [facility]/ZIP Co de Phone Number [facility] [place] [address] * (ABNORMAL) Basic Metabolic Panel (non-fasting) (08/20/2022 12:30 AM EDT) Glucose 188 65 - 199 mg/dL [facility] Comment:Diabetes: >=200 mg/d L plus symptoms Blood Urea Nitrogen 21(H) 8 - 18 mg/dL [facility] Creatinine 0.55(L) 0.70 - 1.20 mg/dL [facility] Sodium 144 135 - 145 mmol/L [facility] Potassium 4.1 3.5 - 5.0 mmol/L [facility] Comment: Please note: ??Patients with WBC >100,000 may have falsely elevated Potassium levels. ??For accurate Potassium quantification in these patients send serum separator tube (gold top) for subsequent determinations. ??Contact the Clinical Chemistry Laboratory if there are any questions. Chloride 107 98 - 107 mmol/L [facility] Carbon Dioxide 28 22 - 31 mmol/L [facility] Anion Gap 9 5 - 15 mmol/L [facility] Calcium 8.5 8.5 - 10.5 mg/dL [facility] Est Glomerular Filtration Rate 104 >=60 mL/min/1. 73 m?? [facility] Comment: This patient's estimated GFR [...] Pascal MD CHEMISTRY ORDERABLES Performing Organization Address [facility]/ZIP Co de Phone Number [facility] [place] [address] * (ABNORMAL) Phosphorus (08/20/2022 12:30 AM EDT) Phosphorus 1.7(L) 2.5 - 4.5 mg/dL [facility] Blood 08/20/2022 12:3 0 AM EDT 08/20/2022 12:32 AM EDT Narrative Resulting Agency Comment Spec In Lab Richard Pascal MD CHEMISTRY ORDERABLES Performing Organization Address City/[facility]/ZIP Co de Phone Number [facility] [place] [address] * Magnesium (08/20/2022 12:30 AM EDT) Magnesium 0.94 0.69 - 1.07 mmol/L [facility] Blood 08/20/2022 12:3 0 AM EDT 08/20/2022 12:32 AM EDT Narrative Resulting Agency Comment Spec In Lab Richard Pascal MD CHEMISTRY ORDERABLES Performing Organization Address [facility] Co de Phone Number [facility] [place] [address] * POCT Glucose (08/20/2022 12:27 AM EDT) Glucose, POC 177 65 - 199 mg/dL [facility] Comment: Supplemental ranges: <140 mg/dL before meals <180 mg/dL all other times of the day Blood 08/20/2022 12:2 7 AM EDT 08/20/2022 12:27 AM EDT Carlos Terry MD POINT OF CARE TEST O RDERABLES Performing Organization Address City/[facility]/ZIP Co de Phone Number [facility] [place] [address] * (ABNORMAL) POCT Glucose (08/19/2022 11:34 PM EDT) Glucose, POC 200(H) 65 - 199 mg/dL [facility] Comment: Supplemental ranges: <140 mg/dL before meals <180 mg/dL all other times of the day Blood 08/19/2022 11:3 4 PM EDT 08/19/2022 11:34 PM EDT Carlos Terry MD POINT OF CARE TEST O GABRIELLA Performing Organization Address [facility] Co de Phone Number [facility] [place] [address] * (ABNORMAL) POCT Glucose (08/19/2022 10:32 PM EDT) Glucose, POC 200(H) 65 - 199 mg/dL [facility] Comment: Supplemental ranges: <140 mg/dL before meals <180 mg/dL all other times of the day Blood 08/19/2022 10:3 2 PM EDT 08/19/2022 10:32 PM EDT Carlos Terry MD POINT OF CARE TEST O GABRIELLA Performing Organization Address [facility] Co de Phone Number [facility] [place] [address] * MRI Brain wo Contrast (08/19/2022 10:15 [...] who have questions please contact the health infant childcare provider that requested your imaging first. ? Electronically signed by: Jagdeep Lee MD, [facility] ([phone]), at 08/20/2022 3:34 AM Narrative 08/20/2022 3:34 [...] patients who have questions please contactthe health infant childcare provider that requested your imaging first. Electronically signed by: Jagdeep Lee MD, [facility]([phone]), at 08/20/2022 3:34 AM Carlos Terry MD IMG MRI ORDERABLES * POCT Glucose (08/19/2022 7:08 PM EDT) Glucose, POC 165 65 - 199 mg/dL [facility] Comment: Supplemental ranges: <140 mg/dL before meals <180 mg/dL all other times of the day Blood 08/19/2022 7:08 PM EDT 08/19/2022 7:08 PM EDT Carlos Terry MD POINT OF CARE TEST O RDERABLES [facility] [place] [address] * POCT Glucose (08/19/2022 6:03 PM EDT) Glucose, POC 172 65 - 199 mg/dL [facility] Comment: Supplemental ranges: <140 mg/dL before meals <180 mg/dL all other times of the day Blood 08/19/2022 6:03 PM EDT 08/19/2022 6:03 PM EDT Carlos Terry MD POINT OF CARE TEST O RDERABLES [facility] [place] [address] * Blood culture (08/19/2022 5:20 PM EDT) Blood Culture No growth at 5 days. [facility] Blood 08/19/2022 5:20 PM EDT 08/19/2022 6:53 PM EDT Comment:RA Narrative Resulting Agency Comment Spec In Lab Carlos Terry MD MICROBIOLOGY - BLOOD ORDERABLES [facility] [place] [address] * POCT Glucose (08/19/2022 5:08 PM EDT) Glucose, POC 154 65 - 199 mg/dL [facility] Comment: Supplemental ranges: <140 mg/dL before meals <180 mg/dL all other times of the day Blood 08/19/2022 5:08 PM EDT 08/19/2022 5:08 PM EDT Carlos Terry MD POINT OF CARE TEST O RDERABLES [facility] [place] [address] * Place BEDSIDE PICC Line: Contact Vascular Access Page [phone] Is PICC procedure required PRIOR to patients discharge? No (08/19/2022 4:51 PM EDT) Narrative Carlos Arnold RN - 08/19/2022 4:51 PM EDT Carlos Arnold RN ? 08/19/2022 ??4:55 PM PICC/Midline Insertion Procedure Note Indications: Medication Administration This insertion was not to replace a malfunctioning catheter. This insertion was not due to a suspected line-associated infection. Location of Procedure: [facility] Risks and Benefits: The risks and [...] to the planned procedure. Hand Hygiene: The gut cleaner did perform hand hygiene prior to line insertion. Catheter type: PICC Lot number: [id number] Procedure Technique: Skin was prepped with chlorhexidine. [...] who have questions please contact the health infant childcare provider that requested your imaging first. ? Electronically signed by: Alan De Guzman MD, [facility] ([phone]), at 08/19/2022 4:39 PM Narrative 08/19/2022 4:39 [...] patients who have questions please contactthe health infant childcare provider that requested your imaging first. Electronically signed by: Alan De Guzman MD, [facility]([phone]), at 08/19/2022 4:39 PM Carlos Terry MD IMG DX ORDERABLES * POCT Glucose (08/19/2022 3:15 PM EDT) Glucose, POC 177 65 - 199 mg/dL [facility] Comment: Supplemental ranges: <140 mg/dL before meals <180 mg/dL all other times of the day Blood 08/19/2022 3:15 PM EDT 08/19/2022 3:15 PM EDT Carlos Terry MD POINT OF CARE TEST O RDERABLES [facility] [place] [address] * Lower Respiratory Culture Sputum Induced (08/19/2022 2:51 PM EDT) Lower Respiratory Culture Rare mixed bacterial morphotypes suggestive of normal upper respiratory wiley [facility] Gram Stain Many Neutrophils seen Few squamous epithelial cells seen No microorganisms seen. [facility] Sputum Induced 08/19/2022 2: 51 PM EDT 08/19/2022 3:47 PM EDT Narrative Resulting Agency Comment Spec In Lab Carlos Terry MD MICROBIOLOGY - GENER AL ORDERABLES Performing Organization Address City/[facility]/ZIP Co de Phone Number [facility] [place] [address] * Lactate, whole blood, send to lab ([facility]) (08/19/2022 2:45 PM EDT) Lactate WB 1.6 0.5 - 2.2 mmol/L [facility] Blood 08/19/2022 2:45 PM EDT 08/19/2022 2:58 PM EDT Narrative Resulting Agency Comment Spec In Lab Carlos Terry MD CHEMISTRY ORDERABLES Performing Organization Address [facility] Co de Phone Number [facility] [place] [address] * (ABNORMAL) Urinalysis Microscopic Exam (08/19/2022 2:30 PM EDT) RBC, Urine 1 0 - 4 /HPF [facility] WBC, Urine 3 0 - 5 /HPF [facility] Bacteria, Urine Rare(A) None /HPF [facility] Budding Yeast, Urine Occasiona l(A) None /HPF [facility] Comment: Interpret results with caution, microscopic results are from suboptimal specimen volume Hyphae Yeast, Urine Occasiona l(A) None /HPF [facility] Squamous Epithelial Cells Raw Data, Urine 1 <=4 /HPF [facility] Hyaline Casts, Urine 2 0 - 2 /LPF [facility] Indwelling Catheter Urine 08/19/2022 2:30 PM EDT 08/19/2022 3:12 PM EDT Narrative Resulting Agency Comment Spec In Lab Neva Tomlin MD URINE ORDERABLES Performing Organization Address City/[facility]/ZIP Co de Phone Number [facility] [place] [address] * (ABNORMAL) Urinalysis with reflex Culture (08/19/2022 2:30 PM EDT) Glucose, Urine Dipstick 100(A) Negative mg/dL [facility] Protein, Urine Dipstick 30(A) Negative mg/dL [facility] Bilirubin, Urine Dipstick Negative Negative mg/dL [facility] Comment: Clinical correlation required for positive Urine Bilirubin results as false positive may occur with some drugs and drug related products. If a false positive is suspected a serum total bilirubin should be considered if clinically indicated. Urobilinogen, Urine Dipstick Normal Normal mg/dL [facility] pH, Urn (dipstick) 5.5 5.0 - 8.0 [facility] Blood, Urine Dipstick Large(A) Negative mg/dL [facility] Ketone, Urine Dipstick Negative Negative mg/dL [facility] Nitrite, Urine Dipstick Negative Negative [facility] Leukocytes, Urine Dipstick Trace(A) Negative mcL [facility] Appearance, Urine Dipstick Clear Clear [facility] Specific [place] Urine Automated 1.018 1.005 - 1.030 [facility] Color, Urine Dipstick Yellow Yellow [facility] Reflex to Culture No [facility] Indwelling Catheter Urine 08/19/2022 2:30 PM EDT 08/19/2022 3:12 PM EDT Narrative Resulting Agency Comment Spec In Lab Carlos Terry MD URINE ORDERABLES Performing Organization Address City/[facility] Co de Phone Number [facility] [place] [address] * Phosphorus (08/19/2022 1:45 PM EDT) Phosphorus 2.9 2.5 - 4.5 mg/dL [facility] Blood Venous Draw / Unknown 08/19/2022 1:45 PM EDT 08/19/2022 2:05 PM EDT Narrative Resulting Agency Comment Spec In Lab Neva Tomlin MD CHEMISTRY ORDERABLES Performing Organization Address City/[facility]/ZIP Co de Phone Number [facility] [place] [address] * (ABNORMAL) Basic Metabolic Panel (non-fasting) (08/19/2022 1:45 PM EDT) Glucose 224(H) 65 - 199 mg/dL [facility] Comment:Diabetes: >=200 mg/d L plus symptoms Blood Urea Nitrogen 20(H) 8 - 18 mg/dL [facility] Creatinine 0.59(L) 0.70 - 1.20 mg/dL [facility] Sodium 145 135 - 145 mmol/L [facility] Potassium 4.1 3.5 - 5.0 mmol/L [facility] Comment: Please note: ??Patients with WBC >100,000 may have falsely elevated Potassium levels. ??For accurate Potassium quantification in these patients send serum separator tube (gold top) for subsequent determinations. ??Contact the Clinical Chemistry Laboratory if there are any questions. Chloride 106 98 - 107 mmol/L [facility] Carbon Dioxide 29 22 - 31 mmol/L [facility] Anion Gap 10 5 - 15 mmol/L [facility] Calcium 8.6 8.5 - 10.5 mg/dL [facility] Est Glomerular Filtration Rate 102 >=60 mL/min/1. 73 m?? [facility] Comment: This patient's estimated GFR [...] In Lab Carlos Terry MD CHEMISTRY ORDERABLES [facility] [place] [address] * Blood culture (08/19/2022 1:30 PM EDT) Blood Culture No growth at 5 days. [facility] Blood 08/19/2022 1:30 PM EDT 08/19/2022 2:15 PM EDT Comment:L Hand Narrative Resulting Agency Comment Spec In Lab Carlos Terry MD MICROBIOLOGY - BLOOD ORDERABLES [facility] [place] [address] * XR Chest One View (08/19/2022 12:30 [...] who have questions please contact the health infant childcare provider that requested your imaging first. ? Electronically signed by: Alan De Guzman MD, [facility] ([phone]), at 08/19/2022 3:14 PM Narrative 08/19/2022 3:14 PM EDT EXAMINATION: XR CHEST ONE VIEW CLINICAL HISTORY: febrile, altered, leukocytosis TECHNIQUE: 1 view of the chest ; AP portable 20 degrees upright COMPARISON: Chest radiograph 08/16/2022 FINDINGS: ET tube tip measures 3.0 cm above ocnsuelo. Enteric catheter descends below the diaphragm and below the [id number]. Interval removal of right IJ approach PA [...] catheter descends below the diaphragm and below [id number]. Interval removal of right IJ approach PA [...] patients who have questions please contactthe health infant childcare provider that requested your imaging first. Electronically signed by: Alan De Guzman MD, [facility]([phone]), at 08/19/2022 3:14 PM Carlos Terry MD IMG DX ORDERABLES * POCT Glucose (08/19/2022 11:35 AM EDT) Glucose, POC 186 65 - 199 mg/dL [facility] Comment: Supplemental ranges: <140 mg/dL before meals <180 mg/dL all other times of the day Blood 08/19/2022 11:3 5 AM EDT 08/19/2022 11:35 AM EDT Carlos Terry MD POINT OF CARE TEST O RDERABLES [facility] [place] [address] * ECHO LMTD W CONTRAST W LMTD [...] 1960 ? Height: 152 cm ? Account: [id number] Age: 62 yrs ? Weight: 73 kg Gender: Female ?BSA: 1.7 m2 Ordering Physician: CARLOS TERRY Referring Physician: NIURKA AYALA Performed By: Thu Croft RDCS Reason For Study: Shock Interpreting Fellow: Hang Moreno. Exam Location: [facility]. Interpretation Summary -Left ventricular systolic function is [...] been no significant change. Procedure Limited - 69894. Doppler - 21868. Color Doppler - 24935. Image enhancement Optison was used for left [...] Echocardiogram Report Name: ISHAN IRVING Study Date: :47 AMBP: 110/57 mmHg Patient Location: [id number] HR: 110 : 1960 Height: 152 cm Account: [id number] Age: 62 yrs Weight: 73 kg Gender: Female BSA: 1.7 m2 Ordering Physician: CARLOS TERRY Referring Physician: NIURKA AYALA Performed By: Thu Croft RDCS Reason For Study: Shock Interpreting Fellow: Hang Moreno. Exam Location: [facility]. Interpretation Summary -Left ventricular systolic function is [...] has been no significantchange. Procedure Limited - 78472. Doppler - 90912. Color Doppler - 83124. Image enhancementOptison was used for left ventricular [...] Glucose, POC 189 65 - 199 mg/dL [facility] Comment: Supplemental ranges: <140 mg/dL before meals <180 mg/dL all other times of the day Blood 08/19/2022 9:49 AM EDT 08/19/2022 9:49 AM EDT Carlos Terry MD POINT OF CARE TEST O RDERABLES [facility] [place] [address] * (ABNORMAL) POCT Glucose (08/19/2022 7:57 AM EDT) Glucose, POC 229(H) 65 - 199 mg/dL [facility] Comment: Supplemental ranges: <140 mg/dL before meals <180 mg/dL all other times of the day Blood 08/19/2022 7:57 AM EDT 08/19/2022 7:57 AM EDT Carlos Terry MD POINT OF CARE TEST O RDERABLES Performing Organization Address City/[facility]/ZIP Co de Phone Number [facility] [place] [address] * (ABNORMAL) POCT Glucose (08/19/2022 6:58 AM EDT) Glucose, POC 215(H) 65 - 199 mg/dL [facility] Comment: Supplemental ranges: <140 mg/dL before meals <180 mg/dL all other times of the day Blood 08/19/2022 6:58 AM EDT 08/19/2022 6:58 AM EDT Carlos Terry MD POINT OF CARE TEST O RDERABLES Performing Organization Address [facility] Co de Phone Number [facility] [place] [address] * (ABNORMAL) BLOOD GAS 2 ARTERIAL (08/19/2022 5:07 AM EDT) pH, Arterial 7.54(H) 7.35 - 7.45 [facility] PCO2, Arterial 31(L) 35 - 45 mmHg [facility] PO2, Arterial 73(L) 85 - 104 mmHg [facility] Bicarbonate, Arterial 25.7 20.0 - 26.0 mmol/L [facility] Base Excess, Arterial 3.1(H) -3.0 - 3.0 mmol/L [facility] Hgb Blood Gas 9.3(L) 11.7 - 15.5 g/dL [facility] Oxyhemoglobin, Arterial 94.1 94.0 - 97.0 % [facility] Carboxyhemoglob in, Arterial 0.2 % [facility] Comment: Nonsmokers: 0.5-1.5% COHB Smokers: Variable, but usually less than 10% Toxic: 20-30% COHB Lethal: Greater than 60% COHB Methemoglobin, Arterial 0.9 <=1.5 % [facility] Na Whole Blood 142 135 - 145 mmol/L [facility] K Whole Blood 3.7 3.5 - 5.0 mmol/L [facility] Comment: Please note: Patients with WBC >100,000 may have falsely elevated Potassium levels. Contact the Clinical Chemistry Laboratory if there are any questions. ICa Whole Blood 1.14(L) 1.15 - 1.33 mmol/L [facility] Comment: Note: ??Total bilirubin higher than 20 mg/dL may lead to falsely low ionized calcium. CL Whole Blood 111(H) 98 - 107 mmol/L [facility] Gluc Whole Bld 178 65 - 199 mg/dL [facility] Comment:Diabetes: >=200 mg/d L plus symptoms. Lactate WB 1.2 0.5 - 2.2 mmol/L [facility] FIO2 Art 30 % [facility] PF Ratio Art 243 [facility] Blood 08/19/2022 5:07 AM EDT 08/19/2022 5:07 AM EDT Carlos Terry MD POINT OF CARE TEST O GABRIELLA [facility] [place] [address] * POCT Glucose (08/19/2022 3:08 AM EDT) Glucose, POC 176 65 - 199 mg/dL [facility] Comment: Supplemental ranges: <140 mg/dL before meals <180 mg/dL all other times of the day Blood 08/19/2022 3:08 AM EDT 08/19/2022 3:08 AM EDT Carlos Terry MD POINT OF CARE TEST O RDERAREYMUNDO [facility] [place] [address] * CK (08/19/2022 1:20 AM EDT) Creatine Kinase 32 0 - 160 unit/L [facility] Blood Venous Draw / Unknown 08/19/2022 1:20 AM EDT 08/19/2022 1:26 AM EDT Narrative Resulting Agency Comment Spec In Lab Neva Tomlin MD CHEMISTRY ORDERABLES Performing Organization Address City/[facility]/ZIP Co de Phone Number [facility] [place] [address] * (ABNORMAL) Differential, Automated (08/19/2022 1:20 AM EDT) Neutrophil % 68.0 % [facility] Neutrophil Absolute 19.24(H) 1.70 - 6.10 x10(3)/mc L [facility] Lymph % 10.4 % [facility] Lymphocytes Abs 2.9 0.9 - 3.2 x10(3)/mc L [facility] Monocyte % 8.1 % [facility] Monocyte Abs 2.3(H) 0.3 - 0.9 x10(3)/mc L [facility] Eos % 0.4 % [facility] Eosinophils Abs 0.1 0.0 - 0.4 x10(3)/mc L [facility] Basophil % 0.6 % [facility] Baso Absolute 0.2(H) 0.0 - 0.1 x10(3)/mc L [facility] Immature Gran % 12.50 % [facility] Comment: Immature granulocytes(IG's)percentage and absolute count will include metamyelocytes, myelocytes, and promyelocytes. Blood smears from CBCs yielding IG's will be scanned manually for concordance. If this scan disagrees with the automated IG or if promyelocytes are noted, a manual differential will be performed. Immature Gran Absolute 3.52(H) 0.00 - 0.04 x10(3)/mc L [facility] Blood 08/19/2022 1:20 AM EDT 08/19/2022 1:25 AM EDT Narrative Resulting Agency Comment Spec In Lab Tyler Cobb MD HEMATOLOGY ORDERABLE S Performing Organization Address City/[facility]/ZIP Co de Phone Number [facility] [place] [address] * (ABNORMAL) Hemogram (08/19/2022 1:20 AM EDT) White Blood Cell 28.3(H) 4.0 - 9.5 x10(3)/mc L [facility] Red Blood Cell 4.35 4.00 - 5.21 x10(6)/mc L [facility] Hemoglobin 8.7(L) 11.7 - 15.5 g/dL [facility] Hematocrit 27.9(L) 35.7 - 45.8 % [facility] Mean Cell Volume 64.1(L) 82.6 - 94.4 fL [facility] Mean Cell Hemoglobin 20.0(L) 27.1 - 32.0 pg [facility] Mean Cell Hemoglobin Concentration 31.2(L) 31.7 - 35.0 g/dL [facility] Platelet 301 145 - 357 x10(3)/mc L [facility] RDW Standard Deviation 63.6(H) 37.0 - 46.0 fL [facility] RDW coefficient of variation 29.2(H) 11.5 - 14.1 % [facility] Mean Platelet Volume Not Measured 7.6 - 12.9 fL [facility] NRBC% auto 1.0 % [facility] NRBC Absolute 0.290(H) 0.000 - 0.000 x10(3)/ L [facility] Blood 08/19/2022 1:20 AM EDT 08/19/2022 1:25 AM EDT Narrative Resulting Agency Comment Spec In Lab Tyler Cobb MD HEMATOLOGY ORDERABLE S Performing Organization Address City/State/[facility] Co de Phone Number [facility] [place] [address] * (ABNORMAL) Basic Metabolic Panel (non-fasting) (08/19/2022 1:20 AM EDT) Glucose 187 65 - 199 mg/dL [facility] Comment:Diabetes: >=200 mg/d L plus symptoms Blood Urea Nitrogen 18 8 - 18 mg/dL [facility] Creatinine 0.50(L) 0.70 - 1.20 mg/dL [facility] Sodium 142 135 - 145 mmol/L [facility] Potassium 3.8 3.5 - 5.0 mmol/L [facility] Comment: Please note: ??Patients with WBC >100,000 may have falsely elevated Potassium levels. ??For accurate Potassium quantification in these patients send serum separator tube (gold top) for subsequent determinations. ??Contact the Clinical Chemistry Laboratory if there are any questions. Chloride 108(H) 98 - 107 mmol/L [facility] Carbon Dioxide 25 22 - 31 mmol/L [facility] Anion Gap 9 5 - 15 mmol/L [facility] Calcium 8.4(L) 8.5 - 10.5 mg/dL [facility] Est Glomerular Filtration Rate 106 >=60 mL/min/1. 73 m?? [facility] Comment: This patient's estimated GFR [...] Pascal MD CHEMISTRY ORDERABLES Performing Organization Address City/State/[facility] Co de Phone Number [facility] [place] [address] * (ABNORMAL) Phosphorus (08/19/2022 1:20 AM EDT) Phosphorus 1.4(Critic al) 2.5 - 4.5 mg/dL [facility] Comment:Called by: CORTNEY, Read back by: DIOMEDES LOCKHART, Date/Time:08/19/22 02:18. Blood 08/19/2022 1:20 AM EDT 08/19/2022 1:25 AM EDT Narrative Resulting Agency Comment Spec In Lab Richard Pascal MD CHEMISTRY ORDERABLES [facility] [place] [address] * Magnesium (08/19/2022 1:20 AM EDT) Magnesium 0.83 0.69 - 1.07 mmol/L [facility] Blood 08/19/2022 1:20 AM EDT 08/19/2022 1:25 AM EDT Narrative Resulting Agency Comment Spec In Lab Richard Pascal MD CHEMISTRY ORDERABLES Performing Organization Address City/[facility] Co de Phone Number [facility] [place] [address] * POCT Glucose (08/19/2022 1:19 AM EDT) Glucose, POC 169 65 - 199 mg/dL [facility] Comment: Supplemental ranges: <140 mg/dL before meals <180 mg/dL all other times of the day Blood 08/19/2022 1:19 AM EDT 08/19/2022 1:19 AM EDT Carlos Terry MD POINT OF CARE TEST O RDERABLES Performing Organization Address City/[facility] Co de Phone Number [facility] [place] [address] * POCT Glucose (08/18/2022 11:03 PM EDT) Glucose, POC 171 65 - 199 mg/dL [facility] Comment: Supplemental ranges: <140 mg/dL before meals <180 mg/dL all other times of the day Blood 08/18/2022 11:0 3 PM EDT 08/18/2022 11:03 PM EDT Carlos Terry MD POINT OF CARE TEST O RDERABLES Performing Organization Address City/[facility]/ZIP Co de Phone Number [facility] [place] [address] * POCT Glucose (08/18/2022 9:05 PM EDT) Glucose, POC 148 65 - 199 mg/dL [facility] Comment: Supplemental ranges: <140 mg/dL before meals <180 mg/dL all other times of the day Blood 08/18/2022 9:05 PM EDT 08/18/2022 9:05 PM EDT Carlos Terry MD POINT OF CARE TEST O GABRIELLA [facility] [place] [address] * POCT Glucose (08/18/2022 7:51 PM EDT) Glucose, POC 144 65 - 199 mg/dL [facility] Comment: Supplemental ranges: <140 mg/dL before meals <180 mg/dL all other times of the day Blood 08/18/2022 7:51 PM EDT 08/18/2022 7:51 PM EDT Carlos Terry MD POINT OF CARE TEST O GABRIELLA [facility] [place] [address] * POCT Glucose (08/18/2022 6:31 PM EDT) Glucose, POC 175 65 - 199 mg/dL [facility] Comment: Supplemental ranges: <140 mg/dL before meals <180 mg/dL all other times of the day Blood 08/18/2022 6:31 PM EDT 08/18/2022 6:31 PM EDT Carlos Terry MD POINT OF CARE TEST O RDERAREYMUNDO [facility] [place] [address] * POCT Glucose (08/18/2022 4:56 PM EDT) Glucose, POC 166 65 - 199 mg/dL [facility] Comment: Supplemental ranges: <140 mg/dL before meals <180 mg/dL all other times of the day Blood 08/18/2022 4:56 PM EDT 08/18/2022 4:56 PM EDT Carlos Terry MD POINT OF CARE TEST O GABRIELLA Performing Organization Address [facility] Co de Phone Number [facility] [place] [address] * (ABNORMAL) POCT Glucose (08/18/2022 3:35 PM EDT) Glucose, POC 207(H) 65 - 199 mg/dL [facility] Comment: Supplemental ranges: <140 mg/dL before meals <180 mg/dL all other times of the day Blood 08/18/2022 3:35 PM EDT 08/18/2022 3:35 PM EDT Carlos Terry MD POINT OF CARE TEST O GABRIELLA Performing Organization Address [facility] Co de Phone Number [facility] [place] [address] * CT Head wo Contrast (Generic) (08/18/2022 [...] who have questions please contact the health infant childcare provider that requested your imaging first. ? Electronically signed by: Antonio Jordan MD, [facility] ([phone]), at 08/18/2022 3:18 PM Narrative 08/18/2022 3:18 [...] patients who have questions please contactthe health infant childcare provider that requested your imaging first. Electronically signed by: Antonio Jordan MD, [facility]([phone]), at 08/18/2022 3:18 PM Carlos Terry MD IMG CT ORDERABLES * POCT Glucose (08/18/2022 2:38 PM EDT) Glucose, POC 194 65 - 199 mg/dL [facility] Comment: Supplemental ranges: <140 mg/dL before meals <180 mg/dL all other times of the day Blood 08/18/2022 2:38 PM EDT 08/18/2022 2:38 PM EDT Carlos Terry MD POINT OF CARE TEST O RDERABLES [facility] [place] [address] * EEG ROUTINE (08/18/2022 2:19 PM EDT) Narrative Tyree Martin MD - 08/18/2022 2:19 PM EDT Tyree Martin MD ? 08/18/2022 ??8:46 PM [facility] Department of Neurology Inpatient Routine EEG Report [...] bipolar, DM, EtOH, esophagitis, who presented to [facility] 3 days ago after being found unresponsive at home. ??Patient found to have likely pneumonia +/- aspiration, newly reduced EF. ??Patient not on any sedation, not waking up. MEDICATIONS: -Depakote 500 mg x1 dose -Fentanyl gtt stopped 08/17 -Propofol gtt stopped 08/17 PRIOR EEG(s): -N/A METHODS: A 21 channel digitized electroencephalogram was performed in the [facility] Clinical Neurophysiology Laboratory. The 10/20 international system of electrode placement was used and bipolar and referential electrode montages were recorded. ??In addition to EEG the patient was monitored for EKG and lateral/vertical eye movements. Video was recorded during the session. MANAGED CARE DIRECTOR'S REPORT: Performed by: Glendy MARCUS Patient was [...] final interpretation as written. Tyree Martin MD [facility] Epilepsy Program Department of Neurology Carlos Terry MD NEUROLOGY ORDERABLES * POCT Glucose (08/18/2022 1:53 PM EDT) Glucose, POC 174 65 - 199 mg/dL [facility] Comment: Supplemental ranges: <140 mg/dL before meals <180 mg/dL all other times of the day Blood 08/18/2022 1:53 PM EDT 08/18/2022 1:53 PM EDT Carlso Terry MD POINT OF CARE TEST O RDERAREYMUNDO Performing Organization Address [facility] Co de Phone Number [facility] [place] [address] * POCT Glucose (08/18/2022 12:30 PM EDT) Glucose, POC 129 65 - 199 mg/dL [facility] Comment: Supplemental ranges: <140 mg/dL before meals <180 mg/dL all other times of the day Blood 08/18/2022 12:3 0 PM EDT 08/18/2022 12:30 PM EDT Carlos Terry MD POINT OF CARE TEST O GABRIELLA Performing Organization Address [facility] Co de Phone Number [facility] [place] [address] * POCT Glucose (08/18/2022 11:12 AM EDT) Glucose, POC 113 65 - 199 mg/dL [facility] Comment: Supplemental ranges: <140 mg/dL before meals <180 mg/dL all other times of the day Blood 08/18/2022 11:1 2 AM EDT 08/18/2022 11:12 AM EDT Carlos Terry MD POINT OF CARE TEST O HUGHERAREYMUNDO Performing Organization Address [facility] Co de Phone Number [facility] [place] [address] * POCT Glucose (08/18/2022 10:37 AM EDT) Glucose, POC 121 65 - 199 mg/dL [facility] Comment: Supplemental ranges: <140 mg/dL before meals <180 mg/dL all other times of the day Blood 08/18/2022 10:3 7 AM EDT 08/18/2022 10:37 AM EDT Carlos Terry MD POINT OF CARE TEST O RDERABLES Performing Organization Address [facility] Co de Phone Number [facility] [place] [address] * Legionella Urinary Antigen (08/18/2022 10:13 AM EDT) Legionella Urinary Antigen Negative Negative [facility] Comment: A negative Legionella [...] - GENER AL ORDERABLES Performing Organization Address [facility] Co de Phone Number [facility] [place] [address] * POCT Glucose (08/18/2022 7:36 AM EDT) Glucose, POC 175 65 - 199 mg/dL [facility] Comment: Supplemental ranges: <140 mg/dL before meals <180 mg/dL all other times of the day Blood 08/18/2022 7:36 AM EDT 08/18/2022 7:36 AM EDT Carlos Terry MD POINT OF CARE TEST O RDERABLES Performing Organization Address [facility] Co de Phone Number [facility] [place] [address] * (ABNORMAL) BLOOD GAS 2 ARTERIAL (08/18/2022 6:15 AM EDT) pH, Arterial 7.51(H) 7.35 - 7.45 [facility] PCO2, Arterial 30(L) 35 - 45 mmHg [facility] PO2, Arterial 62(L) 85 - 104 mmHg [facility] Bicarbonate, Arterial 23.2 20.0 - 26.0 mmol/L [facility] Base Excess, Arterial 0.2 -3.0 - 3.0 mmol/L [facility] Hgb Blood Gas 10.2(L) 11.7 - 15.5 g/dL [facility] Oxyhemoglobin, Arterial 91.5(L) 94.0 - 97.0 % [facility] Carboxyhemoglob in, Arterial 0.5 % [facility] Comment: Nonsmokers: 0.5-1.5% COHB Smokers: Variable, but usually less than 10% Toxic: 20-30% COHB Lethal: Greater than 60% COHB Methemoglobin, Arterial 0.7 <=1.5 % [facility] Na Whole Blood 136 135 - 145 mmol/L [facility] K Whole Blood 3.7 3.5 - 5.0 mmol/L [facility] Comment: Please note: Patients with WBC >100,000 may have falsely elevated Potassium levels. Contact the Clinical Chemistry Laboratory if there are any questions. ICa Whole Blood 1.16 1.15 - 1.33 mmol/L [facility] Comment: Note: ??Total bilirubin higher than 20 mg/dL may lead to falsely low ionized calcium. CL Whole Blood 104 98 - 107 mmol/L [facility] Gluc Whole Bld 219(H) 65 - 199 mg/dL [facility] Comment:Diabetes: >=200 mg/d L plus symptoms. Lactate WB 1.6 0.5 - 2.2 mmol/L [facility] FIO2 Art 30 % [facility] PF Ratio Art 207 [facility] Blood 08/18/2022 6:15 AM EDT 08/18/2022 6:15 AM EDT Carlos Terry MD POINT OF CARE TEST O RDERABLES [facility] [place] [address] * POCT Glucose (08/18/2022 2:31 AM EDT) Glucose, POC 176 65 - 199 mg/dL [facility] Comment: Supplemental ranges: <140 mg/dL before meals <180 mg/dL all other times of the day Blood 08/18/2022 2:31 AM EDT 08/18/2022 2:31 AM EDT Carlos Terry MD POINT OF CARE TEST O RDERABLES Performing Organization Address City/[facility]/ZIP Co de Phone Number [facility] [place] [address] * Scan, Peripheral Blood (08/18/2022 2:30 AM EDT) Plat estimate Normal [facility] RBC Morphology Abnormal [facility] Microcyte 6-10 /HPF [facility] Hypochromia Moderate [facility] Ovalocytes 1-5 /HPF [facility] Connor Cells 6-10 /HPF [facility] Plat, Giant Less than 1 /HPF [facility] Blood 08/18/2022 2:30 AM EDT 08/18/2022 2:36 AM EDT Narrative Resulting Agency Comment Spec In Lab Tyler Cobb MD HEMATOLOGY ORDERABLE S Performing Organization Address [facility] Co de Phone Number [facility] [place] [address] * (ABNORMAL) Differential, Automated (08/18/2022 2:30 AM EDT) Pathologist [facility] Neutrophil % 69.7 % [facility] Neutrophil Absolute 16.91(H) 1.70 - 6.10 x10(3)/mc L [facility] Lymph % 8.7 % [facility] Lymphocytes Abs 2.1 0.9 - 3.2 x10(3)/mc L [facility] Monocyte % 8.4 % [facility] Monocyte Abs 2.0(H) 0.3 - 0.9 x10(3)/mc L [facility] Eos % 0.5 % [facility] Eosinophils Abs 0.1 0.0 - 0.4 x10(3)/mc L [facility] Basophil % 0.7 % [facility] Baso Absolute 0.2(H) 0.0 - 0.1 x10(3)/mc L [facility] Immature Gran % 12.00 % [facility] Comment: Immature granulocytes(IG's)percentage and absolute count will include metamyelocytes, myelocytes, and promyelocytes. Blood smears from CBCs yielding IG's will be scanned manually for concordance. If this scan disagrees with the automated IG or if promyelocytes are noted, a manual differential will be performed. Immature Gran Absolute 2.90(H) 0.00 - 0.04 x10(3)/ L [facility] Blood 08/18/2022 2:30 AM EDT 08/18/2022 2:36 AM EDT Narrative Resulting Agency Comment Spec In Lab Tyler Cobb MD HEMATOLOGY ORDERABLE S [facility] [place] [address] * (ABNORMAL) Hemogram (08/18/2022 2:30 AM EDT) White Blood Cell 24.3(H) 4.0 - 9.5 x10(3)/mc L [facility] Red Blood Cell 4.39 4.00 - 5.21 x10(6)/[facility] Hemoglobin 9.0(L) 11.7 - 15.5 g/dL [facility] Hematocrit 28.2(L) 35.7 - 45.8 % [facility] Mean Cell Volume 64.2(L) 82.6 - 94.4 fL [facility] Mean Cell Hemoglobin 20.5(L) 27.1 - 32.0 pg [facility] Mean Cell Hemoglobin Concentration 31.9 31.7 - 35.0 g/dL [facility] Platelet 226 145 - 357 x10(3)/ L [facility] RDW Standard Deviation 63.0(H) 37.0 - 46.0 fL [facility] RDW coefficient of variation 29.1(H) 11.5 - 14.1 % [facility] Mean Platelet Volume Not Measured 7.6 - 12.9 fL [facility] NRBC% auto 0.2 % [facility] NRBC Absolute 0.050(H) 0.000 - 0.000 x10(3)/mc L [facility] Blood 08/18/2022 2:30 AM EDT 08/18/2022 2:36 AM EDT Narrative Resulting Agency Comment Spec In Lab Tyler Cobb MD HEMATOLOGY ORDERABLE S [facility] [place] [place] [address] * (ABNORMAL) Basic Metabolic Panel (non-fasting) (08/18/2022 2:30 AM EDT) Glucose 178 65 - 199 mg/dL [facility] Comment:Diabetes: >=200 mg/d L plus symptoms Blood Urea Nitrogen 25(H) 8 - 18 mg/dL [facility] Creatinine 0.67(L) 0.70 - 1.20 mg/dL [facility] Sodium 139 135 - 145 mmol/L [facility] Potassium 4.2 3.5 - 5.0 mmol/L [facility] Comment: Please note: ??Patients with WBC >100,000 may have falsely elevated Potassium levels. ??For accurate Potassium quantification in these patients send serum separator tube (gold top) for subsequent determinations. ??Contact the Clinical Chemistry Laboratory if there are any questions. Chloride 104 98 - 107 mmol/L [facility] Carbon Dioxide 25 22 - 31 mmol/L [facility] Anion Gap 10 5 - 15 mmol/L [facility] Calcium 8.4(L) 8.5 - 10.5 mg/dL [facility] Est Glomerular Filtration Rate 99 >=60 mL/min/1. 73 m?? [facility] Comment: This patient's estimated GFR [...] Pascal MD CHEMISTRY ORDERABLES Performing Organization Address [facility] Co de Phone Number [facility] [place] [address] * (ABNORMAL) Phosphorus (08/18/2022 2:30 AM EDT) Phosphorus 1.2(Critic al) 2.5 - 4.5 mg/dL [facility] Comment:Called by: IRMA, Read back by: Conner Kelsey, Date/Time:08/18/22 03:39. Blood 08/18/2022 2:30 AM EDT 08/18/2022 2:36 AM EDT Narrative Resulting Agency Comment Spec In Lab Richard Pascal MD CHEMISTRY ORDERABLES Performing Organization Address [facility] Co de Phone Number [facility] [place] [address] * Magnesium (08/18/2022 2:30 AM EDT) Magnesium 1.02 0.69 - 1.07 mmol/L [facility] Blood 08/18/2022 2:30 AM EDT 08/18/2022 2:36 AM EDT Narrative Resulting Agency Comment Spec In Lab Richard Pascal MD CHEMISTRY ORDERABLES Performing Organization Address [facility] Co de Phone Number [facility] [place] [address] * POCT Glucose (08/18/2022 1:15 AM EDT) Glucose, POC 168 65 - 199 mg/dL [facility] Comment: Supplemental ranges: <140 mg/dL before meals <180 mg/dL all other times of the day Blood 08/18/2022 1:15 AM EDT 08/18/2022 1:15 AM EDT Carlos Terry MD POINT OF CARE TEST O RDERABLES Performing Organization Address City/[facility]/ZIP Co de Phone Number [facility] [place] [address] * POCT Glucose (08/17/2022 11:04 PM EDT) Glucose, POC 188 65 - 199 mg/dL [facility] Comment: Supplemental ranges: <140 mg/dL before meals <180 mg/dL all other times of the day Blood 08/17/2022 11:0 4 PM EDT 08/17/2022 11:04 PM EDT Carlos Terry MD POINT OF CARE TEST O RDERABLES Performing Organization Address [facility] Co de Phone Number [facility] [place] [address] * Potassium (08/17/2022 9:29 PM EDT) Potassium 3.5 3.5 - 5.0 mmol/L [facility] Comment: Please note: ??Patients with [...] Pascal MD CHEMISTRY ORDERABLES Performing Organization Address [facility] Co de Phone Number [facility] [place] [address] * POCT Glucose (08/17/2022 8:06 PM EDT) Glucose, POC 161 65 - 199 mg/dL [facility] Comment: Supplemental ranges: <140 mg/dL before meals <180 mg/dL all other times of the day Blood 08/17/2022 8:06 PM EDT 08/17/2022 8:06 PM EDT Carlos Terry MD POINT OF CARE TEST O RDERABLES Performing Organization Address City/[facility]/ZIP Co de Phone Number [facility] [place] [address] * POCT Glucose (08/17/2022 6:47 PM EDT) Glucose, POC 169 65 - 199 mg/dL [facility] Comment: Supplemental ranges: <140 mg/dL before meals <180 mg/dL all other times of the day Blood 08/17/2022 6:47 PM EDT 08/17/2022 6:47 PM EDT Carlos Terry MD POINT OF CARE TEST O RDERABLES Performing Organization Address [facility] Co de Phone Number [facility] [place] [address] * POCT Glucose (08/17/2022 5:42 PM EDT) Glucose, POC 189 65 - 199 mg/dL [facility] Comment: Supplemental ranges: <140 mg/dL before meals <180 mg/dL all other times of the day Blood 08/17/2022 5:42 PM EDT 08/17/2022 5:42 PM EDT Carlos Terry MD POINT OF CARE TEST O RDERABLES Performing Organization Address [facility] Co de Phone Number [facility] [place] [address] * POCT Glucose (08/17/2022 4:44 PM EDT) Glucose, POC 195 65 - 199 mg/dL [facility] Comment: Supplemental ranges: <140 mg/dL before meals <180 mg/dL all other times of the day Blood 08/17/2022 4:44 PM EDT 08/17/2022 4:44 PM EDT Carlos Terry MD POINT OF CARE TEST O RDERABLES [facility] [place] [address] * Potassium (08/17/2022 3:15 PM EDT) Potassium 3.6 3.5 - 5.0 mmol/L [facility] Comment: Please note: ??Patients with [...] Pascal MD CHEMISTRY ORDERABLES Performing Organization Address [facility] de Phone Number [facility] [place] [address] * Vancomycin Level, Random (08/17/2022 3:15 PM EDT) Vancomycin, Random 19.2 mg/L [facility] Comment: This level is for determination of the patient's vancomycin inob-mhybc-aka-curve (AUC) value. Contact the inpatient pharmacy for interpretation. Blood 08/17/2022 3:15 PM EDT 08/17/2022 3:25 PM EDT Carlos Terry MD CHEMISTRY ORDERABLES Performing Organization Address [facility] Co de Phone Number [facility] [place] [address] * POCT Glucose (08/17/2022 3:10 PM EDT) Glucose, POC 140 65 - 199 mg/dL [facility] Comment: Supplemental ranges: <140 mg/dL before meals <180 mg/dL all other times of the day Blood 08/17/2022 3:10 PM EDT 08/17/2022 3:10 PM EDT Carlos Terry MD POINT OF CARE TEST O RDERABLES Performing Organization Address [facility] Co de Phone Number [facility] [place] [address] * POCT Glucose (08/17/2022 1:41 PM EDT) Glucose, POC 130 65 - 199 mg/dL [facility] Comment: Supplemental ranges: <140 mg/dL before meals <180 mg/dL all other times of the day Blood 08/17/2022 1:41 PM EDT 08/17/2022 1:41 PM EDT Carlos Terry MD POINT OF CARE TEST O GABRIELLA Performing Organization Address [facility] Co de Phone Number [facility] [place] [address] * XR Abdomen 1 view (Generic) (08/17/2022 [...] who have questions please contact the health infant childcare provider that requested your imaging first. ? Electronically signed by: Jenn Pina MD, [facility] ([phone]), at 08/17/2022 2:31 PM Narrative 08/17/2022 2:31 PM EDT EXAMINATION: XR [...] patients who have questions please contactthe health infant childcare provider that requested your imaging first. Carlos Terry MD IMG DX ORDERABLES * POCT Glucose (08/17/2022 11:31 AM EDT) Glucose, POC 146 65 - 199 mg/dL [facility] Comment: Supplemental ranges: <140 mg/dL before meals <180 mg/dL all other times of the day Blood 08/17/2022 11:3 1 AM EDT 08/17/2022 11:31 AM EDT Carlos Terry MD POINT OF CARE TEST O GABRIELLA [facility] [place] [address] * POCT Glucose (08/17/2022 9:27 AM EDT) Glucose, POC 170 65 - 199 mg/dL [facility] Comment: Supplemental ranges: <140 mg/dL before meals <180 mg/dL all other times of the day Blood 08/17/2022 9:27 AM EDT 08/17/2022 9:27 AM EDT Carlos Terry MD POINT OF CARE TEST O GABRIELLA [facility] [place] [address] * POCT Glucose (08/17/2022 7:50 AM EDT) Glucose, POC 158 65 - 199 mg/dL [facility] Comment: Supplemental ranges: <140 mg/dL before meals <180 mg/dL all other times of the day Blood 08/17/2022 7:50 AM EDT 08/17/2022 7:50 AM EDT Carlos Terry MD POINT OF CARE TEST O HUGHERAREYMUNDO [facility] [place] [address] * POCT Glucose (08/17/2022 6:53 AM EDT) Glucose, POC 155 65 - 199 mg/dL [facility] Comment: Supplemental ranges: <140 mg/dL before meals <180 mg/dL all other times of the day Blood 08/17/2022 6:53 AM EDT 08/17/2022 6:53 AM EDT Carlos Terry MD POINT OF CARE TEST O GABRIELLA Performing Organization Address City/[facility]/ZIP Co de Phone Number [facility] [place] [address] * POCT Glucose (08/17/2022 6:18 AM EDT) Glucose, POC 166 65 - 199 mg/dL [facility] Comment: Supplemental ranges: <140 mg/dL before meals <180 mg/dL all other times of the day Blood 08/17/2022 6:18 AM EDT 08/17/2022 6:18 AM EDT Carlos Terry MD POINT OF CARE TEST O GABRIELLA Performing Organization Address [facility] Co de Phone Number [facility] [place] [address] * Heparin (unfractionated) Level (08/17/2022 6:15 AM EDT) UF Heparin 0.48 IU/mL [facility] Comment: Heparin (anti-Xa) levels [...] MD HEMATOLOGY ORDERABLE S Performing Organization Address City/[facility] Co de Phone Number [facility] [place] [address] * POCT Glucose (08/17/2022 5:20 AM EDT) Glucose, POC 165 65 - 199 mg/dL [facility] Comment: Supplemental ranges: <140 mg/dL before meals <180 mg/dL all other times of the day Blood 08/17/2022 5:20 AM EDT 08/17/2022 5:20 AM EDT Carlos Terry MD POINT OF CARE TEST O RDERABLES Performing Organization Address [facility] Co de Phone Number [facility] [place] [address] * POCT Glucose (08/17/2022 4:19 AM EDT) Glucose, POC 128 65 - 199 mg/dL [facility] Comment: Supplemental ranges: <140 mg/dL before meals <180 mg/dL all other times of the day Blood 08/17/2022 4:19 AM EDT 08/17/2022 4:19 AM EDT Carlos Terry MD POINT OF CARE TEST O RDERABLES Performing Organization Address [facility] Co de Phone Number [facility] [place] [address] * POCT Glucose (08/17/2022 2:51 AM EDT) Glucose, POC 129 65 - 199 mg/dL [facility] Comment: Supplemental ranges: <140 mg/dL before meals <180 mg/dL all other times of the day Blood 08/17/2022 2:51 AM EDT 08/17/2022 2:51 AM EDT Carlos Terry MD POINT OF CARE TEST O RDERABLES [facility] [place] [address] * POCT Glucose (08/17/2022 2:05 AM EDT) Glucose, POC 144 65 - 199 mg/dL [facility] Comment: Supplemental ranges: <140 mg/dL before meals <180 mg/dL all other times of the day Blood 08/17/2022 2:05 AM EDT 08/17/2022 2:05 AM EDT Carlos Terry MD POINT OF CARE TEST O RDERABLES Performing Organization Address City/[facility]/ZIP Co de Phone Number [facility] [place] [address] * POCT Glucose (08/17/2022 1:36 AM EDT) Glucose, POC 147 65 - 199 mg/dL [facility] Comment: Supplemental ranges: <140 mg/dL before meals <180 mg/dL all other times of the day Blood 08/17/2022 1:36 AM EDT 08/17/2022 1:36 AM EDT Carlos Terry MD POINT OF CARE TEST O RDERAREYMUNDO Performing Organization Address [facility]/ZIP Co de Phone Number [facility] [place] [address] * POCT Glucose (08/17/2022 1:07 AM EDT) Glucose, POC 134 65 - 199 mg/dL [facility] Comment: Supplemental ranges: <140 mg/dL before meals <180 mg/dL all other times of the day Blood 08/17/2022 1:07 AM EDT 08/17/2022 1:07 AM EDT Carlos Terry MD POINT OF CARE TEST O RDERAREYMUNDO [facility] [place] [address] * (ABNORMAL) Basic Metabolic Panel (non-fasting) (08/17/2022 12:45 AM EDT) Glucose 157 65 - 199 mg/dL [facility] Comment:Diabetes: >=200 mg/d L plus symptoms Blood Urea Nitrogen 36(H) 8 - 18 mg/dL [facility] Creatinine 1.10 0.70 - 1.20 mg/dL [facility] Sodium 136 135 - 145 mmol/L [facility] Potassium Not Perf 3.5 - 5.0 [facility] Comment: Duplicate order Please note: ??Patients with WBC >100,000 may have falsely elevated Potassium levels. ??For accurate Potassium quantification in these patients send serum separator tube (gold top) for subsequent determinations. ??Contact the Clinical Chemistry Laboratory if there are any questions. Chloride 101 98 - 107 mmol/L [facility] Carbon Dioxide Not Perf 22 - 31 [facility] Comment:Add-on request. Samp le too old to perform test. Anion Gap Unable to Calculate 5 - 15 mmol/L [facility] Calcium 8.3(L) 8.5 - 10.5 mg/dL [facility] Est Glomerular Filtration Rate 57(L) >=60 mL/min/1 .73 m?? [facility] Comment: This patient's estimated GFR [...] In Lab Tyler Cobb MD CHEMISTRY ORDERABLES [facility] [place] [address] * Potassium (08/17/2022 12:45 AM EDT) Potassium 4.6 3.5 - 5.0 mmol/L [facility] Comment: Please note: ??Patients with [...] In Lab Tyler Cobb MD CHEMISTRY ORDERABLES [facility] [place] [address] * (ABNORMAL) Differential, Automated (08/17/2022 12:45 AM EDT) Pathologist [facility] Neutrophil % 75.1 % [facility] Neutrophil Absolute 13.95(H) 1.70 - 6.10 x10(3)/mc L [facility] Lymph % 9.5 % [facility] Lymphocytes Abs 1.8 0.9 - 3.2 x10(3)/mc L [facility] Monocyte % 9.5 % [facility] Monocyte Abs 1.8(H) 0.3 - 0.9 x10(3)/mc L [facility] Eos % 0.5 % [facility] Eosinophils Abs 0.1 0.0 - 0.4 x10(3)/mc L [facility] Basophil % 0.4 % [facility] Baso Absolute 0.1 0.0 - 0.1 x10(3)/mc L [facility] Immature Gran % 5.00 % [facility] Comment: Immature granulocytes(IG's)percentage and absolute count will include metamyelocytes, myelocytes, and promyelocytes. Blood smears from CBCs yielding IG's will be scanned manually for concordance. If this scan disagrees with the automated IG or if promyelocytes are noted, a manual differential will be performed. Immature Gran Absolute 0.93(H) 0.00 - 0.04 x10(3)/mc L [facility] Blood 08/17/2022 12:4 5 AM EDT 08/17/2022 12:57 AM EDT Narrative Resulting Agency Comment Spec In Lab Tyler Cobb MD HEMATOLOGY ORDERABLE S [facility] [place] [address] * (ABNORMAL) Hemogram (08/17/2022 12:45 AM EDT) White Blood Cell 18.6(H) 4.0 - 9.5 x10(3)/[facility] LABORAT[facility] Red Blood Cell 4.00 4.00 - 5.21 x10(6)/[facility] LAB[facility]ATORY Hemoglobin 8.2(L) 11.7 - 15.5 g/dL [facility] Hematocrit 26.0(L) 35.7 - 45.8 % [facility] Mean Cell Volume 65.0(L) 82.6 - 94.4 fL [facility] Mean Cell Hemoglobin 20.5(L) 27.1 - 32.0 pg [facility] Mean Cell Hemoglobin Concentration 31.5(L) 31.7 - 35.0 g/dL [facility] Platelet 176 145 - 357 x10(3)/[facility] LABORATORY RDW Standard Deviation 64.0(H) 37.0 - 46.0 fL [facility] RDW coefficient of variation 29.0(H) 11.5 - 14.1 % [facility] Mean Platelet Volume Not Measured 7.6 - 12.9 fL [facility] NRBC% auto 0.1 % [facility] NRBC Absolute 0.020(H) 0.000 - 0.000 x10(3)/ L [facility] Blood 08/17/2022 12:4 5 AM EDT 08/17/2022 12:57 AM EDT Narrative Resulting Agency Comment Spec In Lab Tyler Cobb MD HEMATOLOGY ORDERABLE S Performing Organization Address City/[facility]/ZIP Co de Phone Number [facility] [place] [address] * Heparin (unfractionated) Level (08/17/2022 12:45 AM EDT) Pathologist [facility] UF Heparin 0.19 IU/mL [facility] Comment: Heparin (anti-Xa) levels should [...] Lab Carlos Terry MD HEMATOLOGY ORDERABLE S [facility] [place] [address] * (ABNORMAL) Phosphorus (08/17/2022 12:45 AM EDT) [facility] Phosphorus 2.2(L) 2.5 - 4.5 mg/dL [facility] Blood 08/17/2022 12:4 5 AM EDT 08/17/2022 12:57 AM EDT Narrative Resulting Agency Comment Spec In Lab Richard Pascal MD [place] [address] * Magnesium (08/17/2022 12:45 AM EDT) [facility] Magnesium 0.89 0.69 - 1.07 mmol/L [facility] Blood 08/17/2022 12:4 5 AM EDT 08/17/2022 12:57 AM EDT Narrative Resulting Agency Comment Spec In Lab Richard Pascal MD CHEMISTRY ORDERABLES Performing Organization Address [facility] Co de Phone Number [facility] [place] [address] * POCT Glucose (08/17/2022 12:02 AM EDT) Glucose, POC 147 65 - 199 mg/dL [facility] Comment: Supplemental ranges: <140 mg/dL before meals <180 mg/dL all other times of the day Blood 08/17/2022 12:0 2 AM EDT 08/17/2022 12:02 AM EDT Carlos Terry MD POINT OF CARE TEST O RDERABLES Performing Organization Address [facility] Co de Phone Number [facility] [place] [address] * POCT Glucose (08/16/2022 11:13 PM EDT) Glucose, POC 154 65 - 199 mg/dL [facility] Comment: Supplemental ranges: <140 mg/dL before meals <180 mg/dL all other times of the day Blood 08/16/2022 11:1 3 PM EDT 08/16/2022 11:13 PM EDT Carlos Terry MD POINT OF CARE TEST O RDERAREYMUNDO Performing Organization Address [facility] Co de Phone Number [facility] [place] [address] * CT Head wo Contrast (Generic) (08/16/2022 [...] who have questions please contact the health infant childcare provider that requested your imaging first. ? Electronically signed by: Moustapha Correa MD, [facility] ([phone]), at 08/16/2022 11:19 PM Narrative 08/16/2022 11:19 [...] patients who have questions please contactthe health infant childcare provider that requested your imaging first. Electronically signed by: Moustapha Correa MD, [facility]([phone]), at 08/16/2022 11:19 PM Carlos Terry MD IMG CT ORDERABLES * POCT Glucose (08/16/2022 10:12 PM EDT) Glucose, POC 184 65 - 199 mg/dL [facility] Comment: Supplemental ranges: <140 mg/dL before meals <180 mg/dL all other times of the day Blood 08/16/2022 10:1 2 PM EDT 08/16/2022 10:12 PM EDT Carlos Terry MD POINT OF CARE TEST O RDERABLES [facility] [place] [address] * POCT Glucose (08/16/2022 9:23 PM EDT) Glucose, POC 183 65 - 199 mg/dL [facility] Comment: Supplemental ranges: <140 mg/dL before meals <180 mg/dL all other times of the day Blood 08/16/2022 9:23 PM EDT 08/16/2022 9:23 PM EDT Carlos Terry MD POINT OF CARE TEST O RDERABLES [facility] [place] [address] * (ABNORMAL) Coox2 (08/16/2022 8:12 PM EDT) pO2, Coox 29 mmHg [facility] Hgb Blood Gas 9.3(L) 11.7 - 15.5 g/dL [facility] Oxyhemoglobin, Coox 56.6 % [facility] Carboxyhemoglo bin, Coox 0.2 % [facility] Comment: Nonsmokers: 0.5-1.5% COHB Smokers: Variable, but usually less than 10% Toxic: 20-30% COHB Lethal: Greater than 60% COHB Methemoglobin, Coox 1.3 <=1.5 % [facility] Source Coox Mixed Venous [facility] Blood 08/16/2022 8:12 PM EDT 08/16/2022 8:12 PM EDT Carlos Terry MD POINT OF CARE TEST O RDERABLES [facility] [place] [address] * (ABNORMAL) BLOOD GAS 2 ARTERIAL (08/16/2022 8:09 PM EDT) pH, Arterial 7.48(H) 7.35 - 7.45 [facility] PCO2, Arterial 34(L) 35 - 45 mmHg [facility] PO2, Arterial 78(L) 85 - 104 mmHg [facility] Bicarbonate, Arterial 25.0 20.0 - 26.0 mmol/L [facility] Base Excess, Arterial 1.5 -3.0 - 3.0 mmol/L [facility] Hgb Blood Gas 9.4(L) 11.7 - 15.5 g/dL [facility] Oxyhemoglobin, Arterial 94.2 94.0 - 97.0 % [facility] Carboxyhemoglob in, Arterial 0.1 % [facility] Comment: Nonsmokers: 0.5-1.5% COHB Smokers: Variable, but usually less than 10% Toxic: 20-30% COHB Lethal: Greater than 60% COHB Methemoglobin, Arterial 0.9 <=1.5 % [facility] Na Whole Blood 133(L) 135 - 145 mmol/L [facility] K Whole Blood 4.6 3.5 - 5.0 mmol/L [facility] Comment: Please note: Patients with WBC >100,000 may have falsely elevated Potassium levels. Contact the Clinical Chemistry Laboratory if there are any questions. ICa Whole Blood 1.14(L) 1.15 - 1.33 mmol/L [facility] Comment: Note: ??Total bilirubin higher than 20 mg/dL may lead to falsely low ionized calcium. CL Whole Blood 102 98 - 107 mmol/L [facility] Gluc Whole Bld 180 65 - 199 mg/dL [facility] Comment:Diabetes: >=200 mg/d L plus symptoms. Lactate WB 1.5 0.5 - 2.2 mmol/L [facility] FIO2 Art 30 % [facility] PF Ratio Art 260 [facility] Blood 08/16/2022 8:09 PM EDT 08/16/2022 8:09 PM EDT Carlos Terry MD POINT OF CARE TEST O RDERABLES [facility] [place] [address] * (ABNORMAL) Basic Metabolic Panel (non-fasting) (08/16/2022 6:00 PM EDT) Glucose 181 65 - 199 mg/dL [facility] Comment:Diabetes: >=200 mg/d L plus symptoms Blood Urea Nitrogen 37(H) 8 - 18 mg/dL [facility] Creatinine 1.15 0.70 - 1.20 mg/dL [facility] Sodium 136 135 - 145 mmol/L [facility] Potassium 4.4 3.5 - 5.0 mmol/L [facility] Comment: Please note: ??Patients with WBC >100,000 may have falsely elevated Potassium levels. ??For accurate Potassium quantification in these patients send serum separator tube (gold top) for subsequent determinations. ??Contact the Clinical Chemistry Laboratory if there are any questions. Chloride 100 98 - 107 mmol/L [facility] Carbon Dioxide 24 22 - 31 mmol/L [facility] Anion Gap 12 5 - 15 mmol/L [facility] Calcium 8.4(L) 8.5 - 10.5 mg/dL [facility] Est Glomerular Filtration Rate 54(L) >=60 mL/min/1. 73 m?? [facility] Comment: This patient's estimated GFR [...] In Lab Carlos Terry MD CHEMISTRY ORDERABLES [facility] [place] [address] * (ABNORMAL) BLOOD GAS 2 ARTERIAL (08/16/2022 5:59 PM EDT) pH, Arterial 7.53(H) 7.35 - 7.45 [facility] PCO2, Arterial 26(L) 35 - 45 mmHg [facility] PO2, Arterial 48(Critica l) 85 - 104 mmHg [facility] Comment:Noted by technician helper instrument. Bicarbonate, Arterial 21.2 20.0 - 26.0 mmol/L [facility] Base Excess, Arterial -1.5 -3.0 - 3.0 mmol/L [facility] Hgb Blood Gas 9.5(L) 11.7 - 15.5 g/dL [facility] Oxyhemoglobin, Arterial 86.1(L) 94.0 - 97.0 % [facility] Carboxyhemoglob in, Arterial 0.6 % [facility] Comment: Nonsmokers: 0.5-1.5% COHB Smokers: Variable, but usually less than 10% Toxic: 20-30% COHB Lethal: Greater than 60% COHB Methemoglobin, Arterial 0.8 <=1.5 % [facility] Na Whole Blood 132(L) 135 - 145 mmol/L [facility] K Whole Blood 4.1 3.5 - 5.0 mmol/L [facility] Comment: Please note: Patients with WBC >100,000 may have falsely elevated Potassium levels. Contact the Clinical Chemistry Laboratory if there are any questions. ICa Whole Blood 1.13(L) 1.15 - 1.33 mmol/L [facility] Comment: Note: ??Total bilirubin higher than 20 mg/dL may lead to falsely low ionized calcium. CL Whole Blood 102 98 - 107 mmol/L [facility] Gluc Whole Bld 158 65 - 199 mg/dL [facility] Comment:Diabetes: >=200 mg/d L plus symptoms. Lactate WB 1.3 0.5 - 2.2 mmol/L [facility] FIO2 Art 21 % [facility] PF Ratio Art 229 [facility] Blood 08/16/2022 5:59 PM EDT 08/16/2022 5:59 PM EDT Carlos Terry MD POINT OF CARE TEST O RDERABLES [facility] [place] [address] * (ABNORMAL) BLOOD GAS 2 ARTERIAL (08/16/2022 4:02 PM EDT) pH, Arterial 7.53(H) 7.35 - 7.45 [facility] PCO2, Arterial 30(L) 35 - 45 mmHg [facility] PO2, Arterial 55(L) 85 - 104 mmHg [facility] Bicarbonate, Arterial 24.9 20.0 - 26.0 mmol/L [facility] Base Excess, Arterial 2.1 -3.0 - 3.0 mmol/L [facility] Hgb Blood Gas 9.3(L) 11.7 - 15.5 g/dL [facility] Oxyhemoglobin, Arterial 88.5(L) 94.0 - 97.0 % [facility] Carboxyhemoglob in, Arterial 1.0 % [facility] Comment: Nonsmokers: 0.5-1.5% COHB Smokers: Variable, but usually less than 10% Toxic: 20-30% COHB Lethal: Greater than 60% COHB Methemoglobin, Arterial 0.9 <=1.5 % [facility] Na Whole Blood 133(L) 135 - 145 mmol/L [facility] K Whole Blood 4.7 3.5 - 5.0 mmol/L [facility] Comment: Please note: Patients with WBC >100,000 may have falsely elevated Potassium levels. Contact the Clinical Chemistry Laboratory if there are any questions. ICa Whole Blood 1.15 1.15 - 1.33 mmol/L [facility] Comment: Note: ??Total bilirubin higher than 20 mg/dL may lead to falsely low ionized calcium. CL Whole Blood 102 98 - 107 mmol/L [facility] Gluc Whole Bld 130 65 - 199 mg/dL [facility] Comment:Diabetes: >=200 mg/d L plus symptoms. Lactate WB 1.5 0.5 - 2.2 mmol/L [facility] FIO2 Art 21 % [facility] PF Ratio Art 262 [facility] Blood 08/16/2022 4:02 PM EDT 08/16/2022 4:02 PM EDT Carlos Terry MD POINT OF CARE TEST O RDERABLES Performing Organization Address City/[facility] Co de Phone Number [facility] [place] [address] * (ABNORMAL) Coox2 (08/16/2022 3:58 PM EDT) pO2, Coox 24 mmHg [facility] Hgb Blood Gas 9.4(L) 11.7 - 15.5 g/dL [facility] Oxyhemoglobin, Coox 50.5 % [facility] Carboxyhemoglo bin, Coox 0.5 % [facility] Comment: Nonsmokers: 0.5-1.5% COHB Smokers: Variable, but usually less than 10% Toxic: 20-30% COHB Lethal: Greater than 60% COHB Methemoglobin, Coox 1.1 <=1.5 % [facility] Source Coox Mixed Venous [facility] Blood 08/16/2022 3:58 PM EDT 08/16/2022 3:58 PM EDT Carlos Terry MD POINT OF CARE TEST O RDERABLES [facility] [place] [address] * POCT Glucose (08/16/2022 2:15 PM EDT) Glucose, POC 88 65 - 199 mg/dL [facility] Comment: Supplemental ranges: <140 mg/dL before meals <180 mg/dL all other times of the day Blood 08/16/2022 2:15 PM EDT 08/16/2022 2:15 PM EDT Carlos Terry MD POINT OF CARE TEST O RDAV Performing Organization Address City/[facility] Co de Phone Number [facility] [place] [address] * POCT Glucose (08/16/2022 1:11 PM EDT) Glucose, POC 77 65 - 199 mg/dL [facility] Comment: Supplemental ranges: <140 mg/dL before meals <180 mg/dL all other times of the day Blood 08/16/2022 1:11 PM EDT 08/16/2022 1:11 PM EDT Carlos Terry MD POINT OF CARE TEST O GABRIELLA Performing Organization Address [facility] Co de Phone Number [facility] [place] [address] * (ABNORMAL) BLOOD GAS 2 ARTERIAL (08/16/2022 12:16 PM EDT) pH, Arterial 7.52(H) 7.35 - 7.45 [facility] PCO2, Arterial 30(L) 35 - 45 mmHg [facility] PO2, Arterial 59(L) 85 - 104 mmHg [facility] Bicarbonate, Arterial 24.2 20.0 - 26.0 mmol/L [facility] Base Excess, Arterial 1.5 -3.0 - 3.0 mmol/L [facility] Hgb Blood Gas 9.6(L) 11.7 - 15.5 g/dL [facility] Oxyhemoglobin, Arterial 91.1(L) 94.0 - 97.0 % [facility] Carboxyhemoglob in, Arterial 1.0 % [facility] Comment: Nonsmokers: 0.5-1.5% COHB Smokers: Variable, but usually less than 10% Toxic: 20-30% COHB Lethal: Greater than 60% COHB Methemoglobin, Arterial 0.7 <=1.5 % [facility] Na Whole Blood 132(L) 135 - 145 mmol/L [facility] K Whole Blood 3.4(L) 3.5 - 5.0 mmol/L [facility] Comment: Please note: Patients with WBC >100,000 may have falsely elevated Potassium levels. Contact the Clinical Chemistry Laboratory if there are any questions. ICa Whole Blood 1.16 1.15 - 1.33 mmol/L [facility] Comment: Note: ??Total bilirubin higher than 20 mg/dL may lead to falsely low ionized calcium. CL Whole Blood 101 98 - 107 mmol/L [facility] Gluc Whole Bld 86 65 - 199 mg/dL [facility] Comment:Diabetes: >=200 mg/d L plus symptoms. Lactate WB 1.8 0.5 - 2.2 mmol/L [facility] FIO2 Art 21 % [facility] PF Ratio Art 281 [facility] Blood 08/16/2022 12:1 6 PM EDT 08/16/2022 12:16 PM EDT Carlos Terry MD POINT OF CARE TEST O RDERABLES [facility] [place] [address] * (ABNORMAL) Coox2 (08/16/2022 12:11 PM EDT) pO2, Coox 27 mmHg [facility] Hgb Blood Gas 9.2(L) 11.7 - 15.5 g/dL [facility] Oxyhemoglobin, Coox 56.0 % [facility] Carboxyhemoglo bin, Coox 0.9 % [facility] Comment: Nonsmokers: 0.5-1.5% COHB Smokers: Variable, but usually less than 10% Toxic: 20-30% COHB Lethal: Greater than 60% COHB Methemoglobin, Coox 0.7 <=1.5 % [facility] Source Coox Mixed Venous [facility] Blood 08/16/2022 12:1 1 PM EDT 08/16/2022 12:11 PM EDT Carlos Terry MD POINT OF CARE TEST O GABRIELLA Performing Organization Address [facility] Co de Phone Number [facility] [place] [address] * (ABNORMAL) Coox2 (08/16/2022 11:17 AM EDT) pO2, Coox 24 mmHg [facility] Hgb Blood Gas 9.5(L) 11.7 - 15.5 g/dL [facility] Oxyhemoglobin, Coox 49.3 % [facility] Carboxyhemoglo bin, Coox 0.3 % [facility] Comment: Nonsmokers: 0.5-1.5% COHB Smokers: Variable, but usually less than 10% Toxic: 20-30% COHB Lethal: Greater than 60% COHB Methemoglobin, Coox 0.9 <=1.5 % [facility] Source Coox Mixed Venous [facility] Blood 08/16/2022 11:1 7 AM EDT 08/16/2022 11:17 AM EDT Carlos Terry MD POINT OF CARE TEST O GABRIELLA Performing Organization Address [facility] Co de Phone Number [facility] [place] [address] * XR Chest One View (08/16/2022 10:31 [...] who have questions please contact the health infant childcare provider that requested your imaging first. ? Electronically signed by: Alfonso Adams MD, [facility] ([phone]), at 08/16/2022 10:56 AM Narrative 08/16/2022 10:56 [...] patients who have questions please contactthe health infant childcare provider that requested your imaging first. Electronically signed by: Alfonso Adams MD, [facility]([phone]), at 08/16/2022 10:56 AM Carlos Terry MD IMG DX ORDERABLES * (ABNORMAL) Coox2 (08/16/2022 9:48 AM EDT) [facility] Signature pO2, Coox 27 mmHg [facility] Hgb Blood Gas 10.0(L) 11.7 - 15.5 g/dL [facility] Oxyhemoglobin, Coox 56.5 % [facility] Carboxyhemoglo bin, Coox 0.5 % [facility] Comment: Nonsmokers: 0.5-1.5% COHB Smokers: Variable, but usually less than 10% Toxic: 20-30% COHB Lethal: Greater than 60% COHB Methemoglobin, Coox 0.9 <=1.5 % [facility] Source Coox Mixed Venous [facility] Blood 08/16/2022 9:48 AM EDT 08/16/2022 9:48 AM EDT Carlos Terry MD POINT OF CARE TEST O RDERABLES Performing Organization Address City/[facility] Co de Phone Number [facility] [place] [address] * POCT Glucose (08/16/2022 9:47 AM EDT) Glucose, POC 159 65 - 199 mg/dL [facility] Comment: Supplemental ranges: <140 mg/dL before meals <180 mg/dL all other times of the day Blood 08/16/2022 9:47 AM EDT 08/16/2022 9:47 AM EDT Carlos Terry MD POINT OF CARE TEST O RDERAREYMUNDO Performing Organization Address City/[facility] Co de Phone Number [facility] [place] [address] * (ABNORMAL) Coox2 (08/16/2022 8:20 AM EDT) pO2, Coox 26 mmHg [facility] Hgb Blood Gas 9.9(L) 11.7 - 15.5 g/dL [facility] Oxyhemoglobin, Coox 48.7 % [facility] Carboxyhemoglo bin, Coox 0.6 % [facility] Comment: Nonsmokers: 0.5-1.5% COHB Smokers: Variable, but usually less than 10% Toxic: 20-30% COHB Lethal: Greater than 60% COHB Methemoglobin, Coox 1.0 <=1.5 % [facility] Source Coox Mixed Venous [facility] Blood 08/16/2022 8:20 AM EDT 08/16/2022 8:20 AM EDT Carlos Terry MD POINT OF CARE TEST O RDERABLES [facility] [place] [address] * (ABNORMAL) BLOOD GAS 2 ARTERIAL (08/16/2022 8:17 AM EDT) pH, Arterial 7.46(H) 7.35 - 7.45 [facility] PCO2, Arterial 36 35 - 45 mmHg [facility] PO2, Arterial 68(L) 85 - 104 mmHg [facility] Bicarbonate, Arterial 24.8 20.0 - 26.0 mmol/L [facility] Base Excess, Arterial 1.0 -3.0 - 3.0 mmol/L [facility] Hgb Blood Gas 10.0(L) 11.7 - 15.5 g/dL [facility] Oxyhemoglobin, Arterial 92.7(L) 94.0 - 97.0 % [facility] Carboxyhemoglob in, Arterial 0.3 % [facility] Comment: Nonsmokers: 0.5-1.5% COHB Smokers: Variable, but usually less than 10% Toxic: 20-30% COHB Lethal: Greater than 60% COHB Methemoglobin, Arterial 0.8 <=1.5 % [facility] Na Whole Blood 134(L) 135 - 145 mmol/L [facility] K Whole Blood 3.6 3.5 - 5.0 mmol/L [facility] Comment: Please note: Patients with WBC >100,000 may have falsely elevated Potassium levels. Contact the Clinical Chemistry Laboratory if there are any questions. ICa Whole Blood 1.14(L) 1.15 - 1.33 mmol/L [facility] Comment: Note: ??Total bilirubin higher than 20 mg/dL may lead to falsely low ionized calcium. CL Whole Blood 101 98 - 107 mmol/L [facility] Gluc Whole Bld 168 65 - 199 mg/dL [facility] Comment:Diabetes: >=200 mg/d L plus symptoms. Lactate WB 2.2 0.5 - 2.2 mmol/L [facility] FIO2 Art 21 % [facility] PF Ratio Art 324 [facility] Blood 08/16/2022 8:17 AM EDT 08/16/2022 8:17 AM EDT Carlos Terry MD POINT OF CARE TEST O RDERABLES Performing Organization Address [facility] Co de Phone Number [facility] [place] [address] * Potassium (08/16/2022 8:10 AM EDT) Potassium 3.7 3.5 - 5.0 mmol/L [facility] Comment: Please note: ??Patients with [...] Pascal MD CHEMISTRY ORDERABLES Performing Organization Address [facility] Co de Phone Number [facility] [place] [address] * (ABNORMAL) Troponin (08/16/2022 8:10 AM EDT) Troponin-T, High Sensitivity 251(H) <=14 ng/L [facility] Comment: This patient's troponin T concentration [...] troponin value can be found in the [facility] Test Catalog Trop[facility] - [facility] Test Catalog Reference: Fourth [place] Definition of Myocardial Infarction. Journal of the [place] [employer] 2018;72:4246-6713 Blood 08/16/2022 8:10 AM EDT 08/16/2022 8:28 AM EDT Narrative Resulting Agency Comment Spec In Lab Carlos Terry MD CHEMISTRY ORDERABLES Performing Organization Address [facility]/ZIP Co de Phone Number [facility] [place] [address] * POCT Glucose (08/16/2022 5:54 AM EDT) Glucose, POC 194 65 - 199 mg/dL [facility] Comment: Supplemental ranges: <140 mg/dL before meals <180 mg/dL all other times of the day Blood 08/16/2022 5:54 AM EDT 08/16/2022 5:54 AM EDT Carlos Terry MD POINT OF CARE TEST O RDERABLES Performing Organization Address City/[facility]/ZIP Co de Phone Number [facility] [place] [address] * (ABNORMAL) Coox2 (08/16/2022 4:44 AM EDT) pO2, Coox 27 mmHg [facility] Hgb Blood Gas 9.8(L) 11.7 - 15.5 g/dL [facility] Oxyhemoglobin, Coox 54.2 % [facility] Carboxyhemoglo bin, Coox 0.8 % [facility] Comment: Nonsmokers: 0.5-1.5% COHB Smokers: Variable, but usually less than 10% Toxic: 20-30% COHB Lethal: Greater than 60% COHB Methemoglobin, Coox 1.0 <=1.5 % [facility] Source Coox Mixed Venous [facility] Blood 08/16/2022 4:44 AM EDT 08/16/2022 4:44 AM EDT Carlos Terry MD POINT OF CARE TEST O RDERABLES [facility] [place] [address] * (ABNORMAL) BLOOD GAS 2 ARTERIAL (08/16/2022 4:41 AM EDT) pH, Arterial 7.47(H) 7.35 - 7.45 [facility] PCO2, Arterial 34(L) 35 - 45 mmHg [facility] PO2, Arterial 71(L) 85 - 104 mmHg [facility] Bicarbonate, Arterial 24.5 20.0 - 26.0 mmol/L [facility] Base Excess, Arterial 0.9 -3.0 - 3.0 mmol/L [facility] Hgb Blood Gas 10.8(L) 11.7 - 15.5 g/dL [facility] Oxyhemoglobin, Arterial 93.2(L) 94.0 - 97.0 % [facility] Carboxyhemoglob in, Arterial 0.7 % [facility] Comment: Nonsmokers: 0.5-1.5% COHB Smokers: Variable, but usually less than 10% Toxic: 20-30% COHB Lethal: Greater than 60% COHB Methemoglobin, Arterial 0.8 <=1.5 % [facility] Na Whole Blood 133(L) 135 - 145 mmol/L [facility] K Whole Blood 3.9 3.5 - 5.0 mmol/L [facility] Comment: Please note: Patients with WBC >100,000 may have falsely elevated Potassium levels. Contact the Clinical Chemistry Laboratory if there are any questions. ICa Whole Blood 1.10(L) 1.15 - 1.33 mmol/L [facility] Comment: Note: ??Total bilirubin higher than 20 mg/dL may lead to falsely low ionized calcium. CL Whole Blood 102 98 - 107 mmol/L [facility] Gluc Whole Bld 216(H) 65 - 199 mg/dL [facility] Comment:Diabetes: >=200 mg/d L plus symptoms. Lactate WB 1.7 0.5 - 2.2 mmol/L [facility] FIO2 Art 25 % [facility] PF Ratio Art 284 [facility] Blood 08/16/2022 4:41 AM EDT 08/16/2022 4:41 AM EDT Carlos Terry MD POINT OF CARE TEST O RDERABLES Performing Organization Address [facility] Co de Phone Number [facility] [place] [address] * Scan, Peripheral Blood (08/16/2022 3:36 AM EDT) Plat estimate Normal [facility] RBC Morphology Abnormal [facility] Ovalocytes 1-5 /HPF [facility] Newman Cells 6-10 /HPF [facility] Toxic Granulation Present [facility] Dohle Bodies Present [facility] Blood 08/16/2022 3:36 AM EDT 08/16/2022 3:43 AM EDT Narrative Resulting Agency Comment Spec In Lab Tyler Cobb MD HEMATOLOGY ORDERABLE S Performing Organization Address [facility] Co de Phone Number [facility] [place] [address] * (ABNORMAL) Differential, Automated (08/16/2022 3:36 AM EDT) Neutrophil % 82.1 % [facility] Neutrophil Absolute 24.49(H) 1.70 - 6.10 x10(3)/mc L [facility] Lymph % 6.3 % [facility] Lymphocytes Abs 1.9 0.9 - 3.2 x10(3)/mc L [facility] Monocyte % 7.4 % [facility] Monocyte Abs 2.2(H) 0.3 - 0.9 x10(3)/mc L [facility] Eos % 0.1 % [facility] Eosinophils Abs 0.0 0.0 - 0.4 x10(3)/[facility] Basophil % 0.5 % [facility] Baso Absolute 0.2(H) 0.0 - 0.1 x10(3)/mc L [facility] Immature Gran % 3.60 % [facility] Comment: Immature granulocytes(IG's)percentage and absolute count will include metamyelocytes, myelocytes, and promyelocytes. Blood smears from CBCs yielding IG's will be scanned manually for concordance. If this scan disagrees with the automated IG or if promyelocytes are noted, a manual differential will be performed. Immature Gran Absolute 1.06(H) 0.00 - 0.04 x10(3)/ L [facility] Blood 08/16/2022 3:36 AM EDT 08/16/2022 3:43 AM EDT Narrative Resulting Agency Comment Spec In Lab Tyler Cobb MD HEMATOLOGY ORDERABLE S [facility] [place] [address] * (ABNORMAL) Hemogram (08/16/2022 3:36 AM EDT) White Blood Cell 29.8(H) 4.0 - 9.5 x10(3)/mc L [facility] Red Blood Cell 4.63 4.00 - 5.21 x10(6)/mc L [facility] Hemoglobin 9.3(L) 11.7 - 15.5 g/dL [facility] Hematocrit 29.8(L) 35.7 - 45.8 % [facility] Mean Cell Volume 64.4(L) 82.6 - 94.4 fL [facility] Mean Cell Hemoglobin 20.1(L) 27.1 - 32.0 pg [facility] Mean Cell Hemoglobin Concentration 31.2(L) 31.7 - 35.0 g/dL [facility] Platelet 295 145 - 357 x10(3)/ L [facility] RDW Standard Deviation 64.3(H) 37.0 - 46.0 fL [facility] RDW coefficient of variation 29.2(H) 11.5 - 14.1 % [facility] Mean Platelet Volume Not Measured 7.6 - 12.9 fL [facility] NRBC% auto 0.5 % [facility] NRBC Absolute 0.150(H) 0.000 - 0.000 x10(3)/mc L [facility] Blood 08/16/2022 3:36 AM EDT 08/16/2022 3:43 AM EDT Narrative Resulting Agency Comment Spec In Lab Tyler Cobb MD HEMATOLOGY ORDERABLE S [facility] [place] [address] * (ABNORMAL) Troponin (08/16/2022 3:36 AM EDT) Troponin-T, High Sensitivity 316(H) <=14 ng/L [facility] Comment: This patient's troponin T concentration [...] troponin value can be found in the [facility] Test Catalog Trop[facility] - [facility] Test Catalog Reference: Fourth [place] Definition of Myocardial Infarction. Journal of the [place] [employer] 2018;72:4237-3950 Blood 08/16/2022 3:36 AM EDT 08/16/2022 3:43 AM EDT Narrative Resulting Agency Comment Spec In Lab Carlos Terry MD CHEMISTRY ORDERABLES Performing Organization Address [facility] de Phone Number [facility] [place] [address] * Heparin (unfractionated) Level (08/16/2022 3:36 AM EDT) UF Heparin 0.30 IU/mL [facility] Comment: Heparin (anti-Xa) levels [...] MD HEMATOLOGY ORDERABLE S Performing Organization Address [facility] Co de Phone Number [facility] [place] [address] * (ABNORMAL) Basic Metabolic Panel (non-fasting) (08/16/2022 3:36 AM EDT) Glucose 213(H) 65 - 199 mg/dL [facility] Comment:Diabetes: >=200 mg/d L plus symptoms Blood Urea Nitrogen 37(H) 8 - 18 mg/dL [facility] Creatinine 1.42(H) 0.70 - 1.20 mg/dL [facility] Sodium 138 135 - 145 mmol/L [facility] Potassium 4.1 3.5 - 5.0 mmol/L [facility] Comment: Please note: ??Patients with WBC >100,000 may have falsely elevated Potassium levels. ??For accurate Potassium quantification in these patients send serum separator tube (gold top) for subsequent determinations. ??Contact the Clinical Chemistry Laboratory if there are any questions. Chloride 103 98 - 107 mmol/L [facility] Carbon Dioxide 24 22 - 31 mmol/L [facility] Anion Gap 11 5 - 15 mmol/L [facility] Calcium 8.1(L) 8.5 - 10.5 mg/dL [facility] Est Glomerular Filtration Rate 42(L) >=60 mL/min/1. 73 m?? [facility] Comment: This patient's estimated GFR [...] Resulting Agency Comment Spec In Lab Carlos Trery MD CHEMISTRY ORDERABLES [facility] [place] [address] * Phosphorus (08/16/2022 3:36 AM EDT) Phosphorus 2.7 2.5 - 4.5 mg/dL [facility] Blood 08/16/2022 3:36 AM EDT 08/16/2022 3:43 AM EDT Narrative Resulting Agency Comment Spec In Lab Richard Pascal MD CHEMISTRY ORDERABLES [facility] [place] [address] * Magnesium (08/16/2022 3:36 AM EDT) Magnesium 0.99 0.69 - 1.07 mmol/L [facility] Blood 08/16/2022 3:36 AM EDT 08/16/2022 3:43 AM EDT Narrative Resulting Agency Comment Spec In Lab Richard Pascal MD CHEMISTRY ORDERABLES Performing Organization Address [facility] Co de Phone Number [facility] [place] [address] * (ABNORMAL) POCT Glucose (08/16/2022 3:34 AM EDT) Pathologist [facility] Glucose, POC 207(H) 65 - 199 mg/dL [facility] Comment: Supplemental ranges: <140 mg/dL before meals <180 mg/dL all other times of the day Blood 08/16/2022 3:34 AM EDT 08/16/2022 3:34 AM EDT Carlos Terry MD POINT OF CARE TEST O RDERABLES Performing Organization Address [facility] de Phone Number [facility] [place] [address] * EKG 12 Lead (08/16/2022 3:24 AM EDT) Ventricular rate 79 BPM MUSE SYSTEM Atrial Rate 79 BPM MUSE SYSTEM P-R Interval 130 ms MUSE SYSTEM QRS Duration 68 ms MUSE SYSTEM Q-T Interval 396 ms MUSE SYSTEM QTC Calculated (Bezet) 454 ms MUSE SYSTEM Calculated P [place] -26 degrees MUSE SYSTEM Calculated R [place] 70 degrees MUSE SYSTEM Calculated T [place] -123 degrees MUSE SYSTEM INTERPRETATION Normal sinus [...] 2:13 AM EDT) pO2, Coox 27 mmHg [facility] Hgb Blood Gas 10.6(L) 11.7 - 15.5 g/dL [facility] Oxyhemoglobin, Coox 51.3 % [facility] Carboxyhemoglo bin, Coox 0.3 % [facility] Comment: Nonsmokers: 0.5-1.5% COHB Smokers: Variable, but usually less than 10% Toxic: 20-30% COHB Lethal: Greater than 60% COHB Methemoglobin, Coox 1.0 <=1.5 % [facility] Source Coox Mixed Venous [facility] Blood 08/16/2022 2:13 AM EDT 08/16/2022 2:13 AM EDT Carlos Terry MD POINT OF CARE TEST O RDERABLES [facility] [place] [address] * POCT Glucose (08/16/2022 1:38 AM EDT) Glucose, POC 165 65 - 199 mg/dL [facility] Comment: Supplemental ranges: <140 mg/dL before meals <180 mg/dL all other times of the day Blood 08/16/2022 1:38 AM EDT 08/16/2022 1:38 AM EDT Carlos Terry MD POINT OF CARE TEST O RDERABLES [facility] [place] [address] * POCT Glucose (08/16/2022 1:01 AM EDT) Glucose, POC 136 65 - 199 mg/dL [facility] Comment: Supplemental ranges: <140 mg/dL before meals <180 mg/dL all other times of the day Blood 08/16/2022 1:01 AM EDT 08/16/2022 1:01 AM EDT Carlos Terry MD POINT OF CARE TEST O RDERABLES Performing Organization Address [facility] Co de Phone Number [facility] [place] [address] * (ABNORMAL) Coox2 (08/16/2022 12:04 AM EDT) pO2, Coox 24 mmHg [facility] Hgb Blood Gas 10.5(L) 11.7 - 15.5 g/dL [facility] Oxyhemoglobin, Coox 46.3 % [facility] Carboxyhemoglo bin, Coox 0.3 % [facility] Comment: Nonsmokers: 0.5-1.5% COHB Smokers: Variable, but usually less than 10% Toxic: 20-30% COHB Lethal: Greater than 60% COHB Methemoglobin, Coox 1.2 <=1.5 % [facility] Source Coox Mixed Venous [facility] Blood 08/16/2022 12:0 4 AM EDT 08/16/2022 12:04 AM EDT Carlos Terry MD POINT OF CARE TEST O GABRIELLA Performing Organization Address [facility] Co de Phone Number [facility] [place] [address] * (ABNORMAL) BLOOD GAS 2 ARTERIAL (08/15/2022 11:59 PM EDT) pH, Arterial 7.46(H) 7.35 - 7.45 [facility] PCO2, Arterial 36 35 - 45 mmHg [facility] PO2, Arterial 75(L) 85 - 104 mmHg [facility] Bicarbonate, Arterial 24.7 20.0 - 26.0 mmol/L [facility] Base Excess, Arterial 0.8 -3.0 - 3.0 mmol/L [facility] Hgb Blood Gas 10.5(L) 11.7 - 15.5 g/dL [facility] Oxyhemoglobin, Arterial 94.3 94.0 - 97.0 % [facility] Carboxyhemoglob in, Arterial 0.2 % [facility] Comment: Nonsmokers: 0.5-1.5% COHB Smokers: Variable, but usually less than 10% Toxic: 20-30% COHB Lethal: Greater than 60% COHB Methemoglobin, Arterial 0.9 <=1.5 % [facility] Na Whole Blood 135 135 - 145 mmol/L [facility] K Whole Blood 4.5 3.5 - 5.0 mmol/L [facility] Comment: Please note: Patients with WBC >100,000 may have falsely elevated Potassium levels. Contact the Clinical Chemistry Laboratory if there are any questions. ICa Whole Blood 1.15 1.15 - 1.33 mmol/L [facility] Comment: Note: ??Total bilirubin higher than 20 mg/dL may lead to falsely low ionized calcium. CL Whole Blood 101 98 - 107 mmol/L [facility] Gluc Whole Bld 165 65 - 199 mg/dL [facility] Comment:Diabetes: >=200 mg/d L plus symptoms. Lactate WB 2.2 0.5 - 2.2 mmol/L [facility] FIO2 Art 25 % [facility] PF Ratio Art 300 [facility] Blood 08/15/2022 11:5 9 PM EDT 08/15/2022 11:59 PM EDT Carlos Terry MD POINT OF CARE TEST O RDERABLES [facility] [place] [address] * (ABNORMAL) POCT Glucose (08/15/2022 9:46 PM EDT) Glucose, POC 211(H) 65 - 199 mg/dL [facility] Comment: Supplemental ranges: <140 mg/dL before meals <180 mg/dL all other times of the day Blood 08/15/2022 9:46 PM EDT 08/15/2022 9:46 PM EDT Carlos Terry MD POINT OF CARE TEST O RDERABLES Performing Organization Address [facility] Co de Phone Number [facility] [place] [address] * Potassium (08/15/2022 9:40 PM EDT) Pathologist [facility] [place] Potassium 3.5 3.5 - 5.0 mmol/L [facility] Comment: result rechecked-CORTNEY Please note: ??Patients [...] Pascal MD CHEMISTRY ORDERABLES Performing Organization Address [facility] Co de Phone Number [facility] [place] [address] * Vancomycin Level, Random (08/15/2022 9:40 PM EDT) Pathologist [facility] [place] Vancomycin, Random 19.5 mg/L [facility] Comment: This level is for determination of the patient's vancomycin hoff-lenqc-bxb-curve (AUC) value. Contact the inpatient pharmacy for interpretation. Blood 08/15/2022 9:40 PM EDT 08/15/2022 9:56 PM EDT Carlos Terry MD CHEMISTRY ORDERABLES Performing Organization Address [facility] Co de Phone Number [facility] [place] [address] * (ABNORMAL) Coox2 (08/15/2022 8:10 PM EDT) pO2, Coox 24 mmHg [facility] Hgb Blood Gas 10.6(L) 11.7 - 15.5 g/dL [facility] Oxyhemoglobin, Coox 49.8 % [facility] Carboxyhemoglo bin, Coox 0.7 % [facility] Comment: Nonsmokers: 0.5-1.5% COHB Smokers: Variable, but usually less than 10% Toxic: 20-30% COHB Lethal: Greater than 60% COHB Methemoglobin, Coox 0.8 <=1.5 % [facility] Source Coox Mixed Venous [facility] Blood 08/15/2022 8:10 PM EDT 08/15/2022 8:10 PM EDT Carlos Terry MD POINT OF CARE TEST O RDERABLES [facility] [place] [address] * (ABNORMAL) BLOOD GAS 2 ARTERIAL (08/15/2022 8:08 PM EDT) pH, Arterial 7.44 7.35 - 7.45 [facility] PCO2, Arterial 30(L) 35 - 45 mmHg [facility] PO2, Arterial 78(L) 85 - 104 mmHg [facility] Bicarbonate, Arterial 19.7(L) 20.0 - 26.0 mmol/L [facility] Base Excess, Arterial -4.4(L) -3.0 - 3.0 mmol/L [facility] Hgb Blood Gas 9.8(L) 11.7 - 15.5 g/dL [facility] Oxyhemoglobin, Arterial 94.4 94.0 - 97.0 % [facility] Carboxyhemoglob in, Arterial 0.6 % [facility] Comment: Nonsmokers: 0.5-1.5% COHB Smokers: Variable, but usually less than 10% Toxic: 20-30% COHB Lethal: Greater than 60% COHB Methemoglobin, Arterial 0.8 <=1.5 % [facility] Na Whole Blood 135 135 - 145 mmol/L [facility] K Whole Blood 3.1(L) 3.5 - 5.0 mmol/L [facility] Comment: Please note: Patients with WBC >100,000 may have falsely elevated Potassium levels. Contact the Clinical Chemistry Laboratory if there are any questions. ICa Whole Blood 1.08(L) 1.15 - 1.33 mmol/L [facility] Comment: Note: ??Total bilirubin higher than 20 mg/dL may lead to falsely low ionized calcium. CL Whole Blood 107 98 - 107 mmol/L [facility] Gluc Whole Bld 178 65 - 199 mg/dL [facility] Comment:Diabetes: >=200 mg/d L plus symptoms. Lactate WB 1.6 0.5 - 2.2 mmol/L [facility] FIO2 Art 25 % [facility] PF Ratio Art 312 [facility] Blood 08/15/2022 8:08 PM EDT 08/15/2022 8:08 PM EDT Carlos Terry MD POINT OF CARE TEST O GABRIELLA Performing Organization Address City/[facility]/ZIP Co de Phone Number [facility] [place] [address] * POCT Glucose (08/15/2022 6:03 PM EDT) Glucose, POC 186 65 - 199 mg/dL [facility] Comment: Supplemental ranges: <140 mg/dL before meals <180 mg/dL all other times of the day Blood 08/15/2022 6:03 PM EDT 08/15/2022 6:03 PM EDT Carlos Terry MD POINT OF CARE TEST O GABRIELLA Performing Organization Address City/[facility]/ZIP Co de Phone Number [facility] [place] [address] * (ABNORMAL) POCT Glucose (08/15/2022 4:51 PM EDT) Glucose, POC 210(H) 65 - 199 mg/dL [facility] Comment: Supplemental ranges: <140 mg/dL before meals <180 mg/dL all other times of the day Blood 08/15/2022 4:51 PM EDT 08/15/2022 4:51 PM EDT Carlos Terry MD POINT OF CARE TEST O RDERABLES Performing Organization Address [facility] Co de Phone Number [facility] [place] [address] * Heparin (unfractionated) Level (08/15/2022 4:50 PM EDT) UF Heparin 0.37 IU/mL [facility] Comment: Heparin (anti-Xa) levels should [...] MD HEMATOLOGY ORDERABLE S Performing Organization Address [facility] Co de Phone Number [facility] [place] [address] * (ABNORMAL) Coox2 (08/15/2022 4:24 PM EDT) pO2, Coox 29 mmHg [facility] Hgb Blood Gas 11.1(L) 11.7 - 15.5 g/dL [facility] Oxyhemoglobin, Coox 57.4 % [facility] Carboxyhemoglo bin, Coox 0.5 % [facility] Comment: Nonsmokers: 0.5-1.5% COHB Smokers: Variable, but usually less than 10% Toxic: 20-30% COHB Lethal: Greater than 60% COHB Methemoglobin, Coox 0.8 <=1.5 % [facility] Source Coox Mixed Venous [facility] Blood 08/15/2022 4:24 PM EDT 08/15/2022 4:24 PM EDT Carlos Terry MD POINT OF CARE TEST O RDERABLES [facility] [place] [address] * Vancomycin Level, Random (08/15/2022 4:20 PM EDT) Vancomycin, Random 23.8 mg/L [facility] Comment: This level is for determination of the patient's vancomycin yfrg-kzlzb-sxo-curve (AUC) value. Contact the inpatient pharmacy for interpretation. Blood Venous Draw / Unknown 08/15/2022 4:20 PM EDT 08/15/2022 4:26 PM EDT Tyler Cobb MD CHEMISTRY ORDERABLES Performing Organization Address [facility] Co de Phone Number [facility] [place] [address] * (ABNORMAL) Basic Metabolic Panel (non-fasting) (08/15/2022 4:20 PM EDT) Glucose 227(H) 65 - 199 mg/dL [facility] Comment:Diabetes: >=200 mg/d L plus symptoms Blood Urea Nitrogen 39(H) 8 - 18 mg/dL [facility] Creatinine 1.50(H) 0.70 - 1.20 mg/dL [facility] Sodium 138 135 - 145 mmol/L [facility] Potassium 5.0 3.5 - 5.0 mmol/L [facility] Comment: Please note: ??Patients with WBC >100,000 may have falsely elevated Potassium levels. ??For accurate Potassium quantification in these patients send serum separator tube (gold top) for subsequent determinations. ??Contact the Clinical Chemistry Laboratory if there are any questions. Chloride 103 98 - 107 mmol/L [facility] Carbon Dioxide Not Perf 22 - 31 [facility] Comment:Add-on request. Samp le too old to perform test. Anion Gap Unable to Calculate 5 - 15 mmol/L [facility] Calcium 8.4(L) 8.5 - 10.5 mg/dL [facility] Est Glomerular Filtration Rate 39(L) >=60 mL/min/1 .73 m?? [facility] Comment: This patient's estimated GFR [...] Cobb MD CHEMISTRY ORDERABLES Performing Organization Address [facility] Co de Phone Number [facility] [place] [address] * Potassium (08/15/2022 4:20 PM EDT) Potassium 5.0 3.5 - 5.0 mmol/L [facility] Comment: result rechecked-KT Please note: ??Patients [...] Pascal MD CHEMISTRY ORDERABLES Performing Organization Address City/[facility]/ZIP Co de Phone Number [facility] [place] [address] * (ABNORMAL) Heparin (unfractionated) Level (08/15/2022 4:20 PM EDT) UF Heparin 1.17(Crit ical) IU/mL [facility] Comment: Critical Result called by ?? [...] MD HEMATOLOGY ORDERABLE S Performing Organization Address City/State/[facility] Co de Phone Number [facility] [place] [address] * (ABNORMAL) BLOOD GAS 2 ARTERIAL (08/15/2022 4:16 PM EDT) pH, Arterial 7.38 7.35 - 7.45 [facility] PCO2, Arterial 36 35 - 45 mmHg [facility] PO2, Arterial 78(L) 85 - 104 mmHg [facility] Bicarbonate, Arterial 20.8 20.0 - 26.0 mmol/L [facility] Base Excess, Arterial -4.2(L) -3.0 - 3.0 mmol/L [facility] Hgb Blood Gas 11.0(L) 11.7 - 15.5 g/dL [facility] Oxyhemoglobin, Arterial 94.2 94.0 - 97.0 % [facility] Carboxyhemoglob in, Arterial 0.5 % [facility] Comment: Nonsmokers: 0.5-1.5% COHB Smokers: Variable, but usually less than 10% Toxic: 20-30% COHB Lethal: Greater than 60% COHB Methemoglobin, Arterial 0.8 <=1.5 % [facility] Na Whole Blood 135 135 - 145 mmol/L [facility] K Whole Blood 4.5 3.5 - 5.0 mmol/L [facility] Comment: Please note: Patients with WBC >100,000 may have falsely elevated Potassium levels. Contact the Clinical Chemistry Laboratory if there are any questions. ICa Whole Blood 1.14(L) 1.15 - 1.33 mmol/L [facility] Comment: Note: ??Total bilirubin higher than 20 mg/dL may lead to falsely low ionized calcium. CL Whole Blood 105 98 - 107 mmol/L [facility] Gluc Whole Bld 210(H) 65 - 199 mg/dL [facility] Comment:Diabetes: >=200 mg/d L plus symptoms. Lactate WB 1.8 0.5 - 2.2 mmol/L [facility] FIO2 Art 30 % [facility] PF Ratio Art 260 [facility] Blood 08/15/2022 4:16 PM EDT 08/15/2022 4:16 PM EDT Carlos Terry MD POINT OF CARE TEST O GABRIELLA Performing Organization Address [facility] Co de Phone Number [facility] [place] [address] * POCT Glucose (08/15/2022 2:01 PM EDT) Glucose, POC 94 65 - 199 mg/dL [facility] Comment: Supplemental ranges: <140 mg/dL before meals <180 mg/dL all other times of the day Blood 08/15/2022 2:01 PM EDT 08/15/2022 2:01 PM EDT Carlos Teryr MD POINT OF CARE TEST O RDERAREYMUNDO [facility] [place] [address] * POCT Glucose (08/15/2022 1:16 PM EDT) Glucose, POC 89 65 - 199 mg/dL [facility] Comment: Supplemental ranges: <140 mg/dL before meals <180 mg/dL all other times of the day Blood 08/15/2022 1:16 PM EDT 08/15/2022 1:16 PM EDT Carlos Terry MD POINT OF CARE TEST O RDERABLES Performing Organization Address [facility] Co de Phone Number [facility] [place] [address] * POCT Glucose (08/15/2022 1:00 PM EDT) Glucose, POC 69 65 - 199 mg/dL [facility] Comment: Supplemental ranges: <140 mg/dL before meals <180 mg/dL all other times of the day Blood 08/15/2022 1:00 PM EDT 08/15/2022 1:00 PM EDT Carlos Teryr MD POINT OF CARE TEST O RDERABLES Performing Organization Address [facility] Co de Phone Number [facility] [place] [address] * Urine culture Indwelling Catheter Urine; Other; sepsis, bacteria on UA (08/15/2022 12:25 PM EDT) Urine Culture 1,000-9,000 cfu/ml Insignificant growth [facility] Indwelling Catheter Urine 08/15/2022 12:25 PM EDT 08/15/2022 12:48 PM EDT Comment:Patient has fever an d at least one of the following clinical symptoms of urinary tract infection (UTI) or additional considerations->Other Narrative Resulting Agency Comment Spec In Lab Carlos Terry MD MICROBIOLOGY - GENER AL ORDERABLES Performing Organization Address [facility] Co de Phone Number [facility] [place] [address] * (ABNORMAL) BLOOD GAS 2 ARTERIAL (08/15/2022 12:18 PM EDT) pH, Arterial 7.37 7.35 - 7.45 [facility] PCO2, Arterial 39 35 - 45 mmHg [facility] PO2, Arterial 92 85 - 104 mmHg [facility] Bicarbonate, Arterial 22.2 20.0 - 26.0 mmol/L [facility] Base Excess, Arterial -3.0 -3.0 - 3.0 mmol/L [facility] Hgb Blood Gas 10.8(L) 11.7 - 15.5 g/dL [facility] Oxyhemoglobin, Arterial 95.6 94.0 - 97.0 % [facility] Carboxyhemoglob in, Arterial 0.5 % [facility] Comment: Nonsmokers: 0.5-1.5% COHB Smokers: Variable, but usually less than 10% Toxic: 20-30% COHB Lethal: Greater than 60% COHB Methemoglobin, Arterial 0.9 <=1.5 % [facility] Na Whole Blood 137 135 - 145 mmol/L [facility] K Whole Blood 4.0 3.5 - 5.0 mmol/L [facility] Comment: Please note: Patients with WBC >100,000 may have falsely elevated Potassium levels. Contact the Clinical Chemistry Laboratory if there are any questions. ICa Whole Blood 1.15 1.15 - 1.33 mmol/L [facility] Comment: Note: ??Total bilirubin higher than 20 mg/dL may lead to falsely low ionized calcium. CL Whole Blood 107 98 - 107 mmol/L [facility] Gluc Whole Bld 57(L) 65 - 199 mg/dL [facility] Comment:Diabetes: >=200 mg/d L plus symptoms. Lactate WB 1.5 0.5 - 2.2 mmol/L [facility] FIO2 Art 30 % [facility] PF Ratio Art 307 [facility] Blood 08/15/2022 12:1 8 PM EDT 08/15/2022 12:18 PM EDT Carlos Terry MD POINT OF CARE TEST O RDERABLES [facility] [place] [address] * (ABNORMAL) Coox2 (08/15/2022 12:13 PM EDT) pO2, Coox 30 mmHg [facility] Hgb Blood Gas 11.1(L) 11.7 - 15.5 g/dL [facility] Oxyhemoglobin, Coox 59.4 % [facility] Carboxyhemoglo bin, Coox 0.4 % [facility] Comment: Nonsmokers: 0.5-1.5% COHB Smokers: Variable, but usually less than 10% Toxic: 20-30% COHB Lethal: Greater than 60% COHB Methemoglobin, Coox 0.9 <=1.5 % [facility] Source Coox Mixed Venous [facility] Blood 08/15/2022 12:1 3 PM EDT 08/15/2022 12:13 PM EDT Carlos Terry MD POINT OF CARE TEST O GABRIELLA Performing Organization Address City/[facility] Co de Phone Number [facility] [place] [address] * POCT Glucose (08/15/2022 11:59 AM EDT) Glucose, POC 83 65 - 199 mg/dL [facility] Comment: Supplemental ranges: <140 mg/dL before meals <180 mg/dL all other times of the day Blood 08/15/2022 11:5 9 AM EDT 08/15/2022 11:59 AM EDT Carlos Terry MD POINT OF CARE TEST O GABRIELLA Performing Organization Address City/[facility] Co de Phone Number [facility] [place] [address] * COVID-19 PCR (08/15/2022 11:50 AM EDT) SARS-CoV-2 RNA (Rapid) Not Detected Not Detected [facility] Comment: This result should be interpreted [...] using the Simplexa COVID-19 Direct Assay by [employer] as authorized by the FDA issued Emergency [...] Department of Pathology and Laboratory Medicine at [facility], certified under the Clinical Laboratory Improvement Amendments [...] fact sheets at the following FDA website: https://www.fda.gov/medical-devices/kscrivrtdet-purkoyu-6979-rpeko-49-dsoghfdqh- use-a lzexabsjyasjx-wwzoktj-yuzfmek/trywy-wkcnpfljxtg-lnpp SARS-CoV-2 Source MAINFRAME ARCHITECT Swab [facility] Nasopharyngeal Swab 08/16/19 11:50 AM EDT 08/15/2022 12:36 PM EDT Comment:Specimen Source->Wili opharyngeal Swab Narrative Resulting Agency Comment Spec In Lab Carlos Terry MD MICROBIOLOGY - GENER AL ORDERABLES Performing Organization Address [facility] Co de Phone Number [facility] [place] [address] * POCT Glucose (08/15/2022 11:22 AM EDT) Glucose, POC 84 65 - 199 mg/dL [facility] Comment: Supplemental ranges: <140 mg/dL before meals <180 mg/dL all other times of the day Blood 08/15/2022 11:2 2 AM EDT 08/15/2022 11:22 AM EDT Carlos Terry MD POINT OF CARE TEST O RDERABLES Performing Organization Address [facility] Co de Phone Number [facility] [place] [address] * POCT Glucose (08/15/2022 10:13 AM EDT) Glucose, POC 123 65 - 199 mg/dL [facility] Comment: Supplemental ranges: <140 mg/dL before meals <180 mg/dL all other times of the day Blood 08/15/2022 10:1 3 AM EDT 08/15/2022 10:13 AM EDT Carlos Terry MD POINT OF CARE TEST O RDERABLES Performing Organization Address [facility] Co de Phone Number [facility] [place] [address] * ECHO COMPLETE (08/15/2022 10:04 AM EDT) Anatomical Region Laterality Modality Cardiac Other 08/15/2022 9:38 AM EDT Narrative 08/15/2022 10:34 AM EDT ? Echocardiogram Report Name: ISHAN IRVING ? Study Date: 08/15/2022 09:38 AMBP: 102/54 mmHg ? Patient Location: 4A 0000 ? HR: 99 : 1960 ? Height: 152 cm ? Account: [id number] Age: 62 yrs ? Weight: 69 kg Gender: Female ?BSA: 1.7 m2 Ordering Physician: VENKAT^M Referring Physician: NIURKA AYALA Performed By: Raissa Bhakta RDCS Reason For Study: Septic shock Exam Location: [facility]. Interpretation Summary -Left ventricle is mildly dilated. [...] today's date, LVEF is slightly improved. Procedure Complete-[id number]. Satisfactory quality. There is normal sinus rhythm. [...] Terry MD - 08/15/2022 Echocardiogram Report Name: IRVINGISHAN Study Date: 309:38 AMBP: 102/54 mmHg Patient Location: [id number] HR: 99 : 1960 Height: 152 cm Account: [id number] Age: 62 yrs Weight: 69 kg Gender: Female BSA: 1.7 m2 Ordering Physician: FANY Referring Physician: NIURKA AYALA Performed By: Raissa Bhakta RDCS Reason For Study: Septic shock Exam Location: [facility]. Interpretation Summary -Left ventricle is mildly dilated. [...] today's date, LVEF is slightly improved. Procedure Complete-[id number]. Satisfactory quality. There is normal sinus rhythm. [...] Protein, Total 5.6(L) 6.1 - 8.0 g/dL [facility] Albumin 2.4(L) 3.2 - 5.2 g/dL [facility] Aspartate Aminotransferase 21 0 - 30 unit/L [facility] Alanine Aminotransferase 12 0 - 30 unit/L [facility] Alkaline Phosphatase 102 35 - 105 unit/L [facility] Bilirubin, Total <0.2(L) 0.2 - 1.3 mg/dL [facility] Bilirubin, Direct 0.1 0.0 - 0.3 mg/dL [facility] Blood Venous Draw / Unknown 08/15/2022 9:50 AM EDT 08/15/2022 10:04 AM EDT Narrative Resulting Agency Comment Spec In Lab Jigar Streeter MD CHEMISTRY ORDERABLES Performing Organization Address [facility]/ZIP Co de Phone Number [facility] [place] [address] * (ABNORMAL) Potassium (08/15/2022 9:50 AM EDT) Potassium 3.2(L) 3.5 - 5.0 mmol/L [facility] Comment: Please note: ??Patients with [...] Pascal MD CHEMISTRY ORDERABLES Performing Organization Address [facility] Co de Phone Number [facility] [place] [address] * (ABNORMAL) Troponin (08/15/2022 9:50 AM EDT) Troponin-T, High Sensitivity 575(H) <=14 ng/L [facility] Comment: This patient's troponin T concentration [...] troponin value can be found in the [facility] Test Catalog Troponin - [facility] Test Catalog Reference: Fourth [place] Definition of Myocardial Infarction. Journal of the [place] [employer] 2018;72:5925-4767 Blood 08/15/2022 9:50 AM EDT 08/15/2022 9:59 AM EDT Narrative Resulting Agency Comment Spec In Lab Carlos Terry MD CHEMISTRY ORDERABLES Performing Organization Address [facility] [place] [address] * Heparin (unfractionated) Level (08/15/2022 8:50 AM EDT) UF Heparin 0.51 IU/mL [facility] Comment: Heparin (anti-Xa) levels [...] MD HEMATOLOGY ORDERABLE S Performing Organization Address City/[facility]/ZIP Co de Phone Number [facility] [place] [address] * (ABNORMAL) BLOOD GAS 2 ARTERIAL (08/15/2022 8:49 AM EDT) pH, Arterial 7.36 7.35 - 7.45 [facility] PCO2, Arterial 37 35 - 45 mmHg [facility] PO2, Arterial 78(L) 85 - 104 mmHg [facility] Bicarbonate, Arterial 20.3 20.0 - 26.0 mmol/L [facility] Base Excess, Arterial -5.1(L) -3.0 - 3.0 mmol/L [facility] Hgb Blood Gas 11.3(L) 11.7 - 15.5 g/dL [facility] Oxyhemoglobin, Arterial 93.8(L) 94.0 - 97.0 % [facility] Carboxyhemoglob in, Arterial 0.5 % [facility] Comment: Nonsmokers: 0.5-1.5% COHB Smokers: Variable, but usually less than 10% Toxic: 20-30% COHB Lethal: Greater than 60% COHB Methemoglobin, Arterial 0.8 <=1.5 % [facility] Na Whole Blood 137 135 - 145 mmol/L [facility] K Whole Blood 4.0 3.5 - 5.0 mmol/L [facility] Comment: Please note: Patients with WBC >100,000 may have falsely elevated Potassium levels. Contact the Clinical Chemistry Laboratory if there are any questions. ICa Whole Blood 1.21 1.15 - 1.33 mmol/L [facility] Comment: Note: ??Total bilirubin higher than 20 mg/dL may lead to falsely low ionized calcium. CL Whole Blood 106 98 - 107 mmol/L [facility] Gluc Whole Bld 106 65 - 199 mg/dL [facility] Comment:Diabetes: >=200 mg/d L plus symptoms. Lactate WB 2.9(H) 0.5 - 2.2 mmol/L [facility] FIO2 Art 30 % [facility] PF Ratio Art 260 [facility] Blood 08/15/2022 8:49 AM EDT 08/15/2022 8:49 AM EDT Carlos Terry MD POINT OF CARE TEST O RDERABLES [facility] [address] [place] [address] * XR Abdomen 1 view (Generic) (08/15/2022 [...] who have questions please contact the health infant childcare provider that requested your imaging first. ? Electronically signed by: Liliane Adams MD, [facility] ([phone]), at 08/15/2022 9:05 AM Narrative 08/15/2022 9:05 AM EDT EXAMINATION: XR ABDOMEN 1 VIEW (GENERIC) CLINICAL HISTORY: 62 yo F w/ shock, confirm NG tube placement TECHNIQUE: Single radiograph of the lower chest and upper abdomen for purposes of enteric tube verification and otherwise nondiagnostic. The lower abdomen is excluded from [id number]. COMPARISON: Abdominal radiograph 08/15/2022 FINDINGS: * ??An enteric tube courses below the diaphragm with tip in the expected region of the stomach. Sidehole is not definitively subdiaphragmatic. * ??Unchanged position of right neck central catheter terminating over the region of the pulmonary trunk. * ??Endotracheal tube terminates 3.1 cm above the consuleo. Patchy and hazy bilateral airspace opacities compatible with ongoing pulmonary edema. Procedure Note Liliane Adams MD - 08/15/2022 EXAMINATION: XR ABDOMEN 1 VIEW (GENERIC) CLINICAL HISTORY: 62 yo F w/ shock, confirm NG tube placement TECHNIQUE: Single radiograph of the lower chest and upper abdomen for purposes ofenteric tube verification and otherwise nondiagnostic. The lower abdomen isexcluded from [id number]. COMPARISON: Abdominal radiograph 08/15/2022 FINDINGS: * An [...] patients who have questions please contactthe health infant childcare provider that requested your imaging first. Carlos Terry MD IMG DX ORDERABLES * POCT Glucose (08/15/2022 7:51 AM EDT) [facility] Signature Glucose, POC 189 65 - 199 mg/dL [facility] Comment: Supplemental ranges: <140 mg/dL before meals <180 mg/dL all other times of the day Blood 08/15/2022 7:51 AM EDT 08/15/2022 7:51 AM EDT Carlos Terry MD POINT OF CARE TEST O RDERABLES [facility] [place] [address] * Lower Respiratory Culture Sputum Induced (08/15/2022 7:40 AM EDT) Lower Respiratory Culture Rare normal upper respiratory wiley [facility] Gram Stain Many Neutrophils Few squamous epithelial cells Rare mixed bacterial morphotypes suggestive of normal upper respiratory iwley [facility] Sputum Induced 08/15/2022 7: 40 AM EDT 08/15/2022 10:13 AM EDT Narrative Resulting Agency Comment Spec In Lab Carlos Terry MD MICROBIOLOGY - GENER AL ORDERABLES [facility] [place] [address] * EKG 12 Lead (08/15/2022 7:36 AM EDT) Ventricular rate 106 BPM MUSE SYSTEM Atrial Rate 106 BPM MUSE SYSTEM P-R Interval 128 ms MUSE SYSTEM QRS Duration 70 ms MUSE SYSTEM Q-T Interval 362 ms MUSE SYSTEM QTC Calculated (Bezet) 480 ms MUSE SYSTEM Calculated P [place] 59 degrees MUSE SYSTEM Calculated R [place] 94 degrees MUSE SYSTEM Calculated T [place] 160 degrees MUSE SYSTEM INTERPRETATION Sinus tachycardia Rightward axis Low voltage QRS Septal infarct (cited on or before 14-AUG-2022) T wave abnormality, consider anterolateral ischemia Abnormal ECG When compared with ECG of 14-AUG-2022 23:19, Lateral T wave inversion is more prounced QRS axis Shifted right Confirmed by MD Harrison, Carlos Hand ([id number]) on 08/17/2022 6:16:58 PM MUSE SYSTEM 08/15/2022 7:36 AM EDT 08/17/2022 6:16 PM EDT Carlos Terry MD ECG ORDERABLES MUSE SYSTEM * XR Abdomen 1 view [...] who have questions please contact the health infant childcare provider that requested your imaging first. ? Electronically signed by: Davi Terry MD, [facility] [place] ([phone]), at 08/15/2022 6:41 AM Narrative 08/15/2022 6:41 [...] patients who have questions please contactthe health infant childcare provider that requested your imaging first. Electronically signed by: Davi Terry MD, [facility] [place]([phone]), at 08/15/2022 6:41 AM Carlos Terry MD IMG DX ORDERABLES * (ABNORMAL) POCT Glucose (08/15/2022 6:38 AM EDT) Pathologist [facility] [place] Glucose, POC 219(H) 65 - 199 mg/dL [facility] Comment: Supplemental ranges: <140 mg/dL before meals <180 mg/dL all other times of the day Blood 08/15/2022 6:38 AM EDT 08/15/2022 6:38 AM EDT Carlos Terry MD POINT OF CARE TEST O RDERABLES Performing Organization Address City/[facility]/ZIP Co de Phone Number [facility] [place] [address] * (ABNORMAL) Lactate, whole blood, send to lab ([facility]) (08/15/2022 5:55 AM EDT) [facility] Lactate WB 3.1(H) 0.5 - 2.2 mmol/L [facility] Blood 08/15/2022 5:55 AM EDT 08/15/2022 6:02 AM EDT Narrative Resulting Agency Comment Spec In Lab Carlos Terry MD CHEMISTRY ORDERABLES [facility] [place] [address] * (ABNORMAL) Coox2 (08/15/2022 5:33 AM EDT) pO2, Coox 34 mmHg [facility] Hgb Blood Gas 11.1(L) 11.7 - 15.5 g/dL [facility] Oxyhemoglobin, Coox 63.7 % [facility] Carboxyhemoglo bin, Coox 0.6 % [facility] Comment: Nonsmokers: 0.5-1.5% COHB Smokers: Variable, but usually less than 10% Toxic: 20-30% COHB Lethal: Greater than 60% COHB Methemoglobin, Coox 1.0 <=1.5 % [facility] Source Coox Mixed Venous [facility] Blood 08/15/2022 5:33 AM EDT 08/15/2022 5:33 AM EDT Carlos Terry MD POINT OF CARE TEST O RDERABLES [facility] [place] [place] [address] * (ABNORMAL) BLOOD GAS 2 ARTERIAL (08/15/2022 5:31 AM EDT) pH, Arterial 7.30(L) 7.35 - 7.45 [facility] PCO2, Arterial 41 35 - 45 mmHg [facility] PO2, Arterial 117(H) 85 - 104 mmHg [facility] Bicarbonate, Arterial 19.6(L) 20.0 - 26.0 mmol/L [facility] Base Excess, Arterial -6.9(L) -3.0 - 3.0 mmol/L [facility] Hgb Blood Gas 11.2(L) 11.7 - 15.5 g/dL [facility] Oxyhemoglobin, Arterial 96.8 94.0 - 97.0 % [facility] Carboxyhemoglob in, Arterial 0.2 % [facility] Comment: Nonsmokers: 0.5-1.5% COHB Smokers: Variable, but usually less than 10% Toxic: 20-30% COHB Lethal: Greater than 60% COHB Methemoglobin, Arterial 0.8 <=1.5 % [facility] Na Whole Blood 140 135 - 145 mmol/L [facility] K Whole Blood 2.7(Critic al) 3.5 - 5.0 mmol/L [facility] Comment: Noted by technician helper instrument. Please note: Patients with WBC >100,000 may have falsely elevated Potassium levels. Contact the Clinical Chemistry Laboratory if there are any questions. ICa Whole Blood 1.16 1.15 - 1.33 mmol/L [facility] Comment: Note: ??Total bilirubin higher than 20 mg/dL may lead to falsely low ionized calcium. CL Whole Blood 109(H) 98 - 107 mmol/L [facility] Gluc Whole Bld 277(H) 65 - 199 mg/dL [facility] Comment:Diabetes: >=200 mg/d L plus symptoms. Lactate WB 3.6(H) 0.5 - 2.2 mmol/L [facility] FIO2 Art 40 % [facility] PF Ratio Art 292 [facility] Blood 08/15/2022 5:31 AM EDT 08/15/2022 5:31 AM EDT Carlos Terry MD POINT OF CARE TEST O RDERABLES Performing Organization Address [facility] de Phone Number [facility] [place] [address] * (ABNORMAL) POCT Glucose (08/15/2022 5:00 AM EDT) Glucose, POC 280(H) 65 - 199 mg/dL [facility] Comment: Supplemental ranges: <140 mg/dL before meals <180 mg/dL all other times of the day Blood 08/15/2022 5:00 AM EDT 08/15/2022 5:00 AM EDT Carlos Terry MD POINT OF CARE TEST O RDERABLES Performing Organization Address [facility] Co de Phone Number [facility] [place] [address] * (ABNORMAL) BLOOD GAS 2 ARTERIAL (08/15/2022 3:11 AM EDT) pH, Arterial 7.25(Criti tonya) 7.35 - 7.45 [facility] Comment:Noted by technician helper instrument. PCO2, Arterial 38 35 - 45 mmHg [facility] PO2, Arterial 112(H) 85 - 104 mmHg [facility] Bicarbonate, Arterial 16.0(L) 20.0 - 26.0 mmol/L [facility] Base Excess, Arterial -11.2(L) -3.0 - 3.0 mmol/L [facility] Hgb Blood Gas 11.0(L) 11.7 - 15.5 g/dL [facility] Oxyhemoglobin, Arterial 96.4 94.0 - 97.0 % [facility] Carboxyhemoglob in, Arterial 0.1 % [facility] Comment: Nonsmokers: 0.5-1.5% COHB Smokers: Variable, but usually less than 10% Toxic: 20-30% COHB Lethal: Greater than 60% COHB Methemoglobin, Arterial 0.9 <=1.5 % [facility] Na Whole Blood 138 135 - 145 mmol/L [facility] K Whole Blood 3.4(L) 3.5 - 5.0 mmol/L [facility] Comment: Please note: Patients with WBC >100,000 may have falsely elevated Potassium levels. Contact the Clinical Chemistry Laboratory if there are any questions. ICa Whole Blood 1.16 1.15 - 1.33 mmol/L [facility] Comment: Note: ??Total bilirubin higher than 20 mg/dL may lead to falsely low ionized calcium. CL Whole Blood 106 98 - 107 mmol/L [facility] Gluc Whole Bld 324(H) 65 - 199 mg/dL [facility] Comment:Diabetes: >=200 mg/d L plus symptoms. Lactate WB 1.9 0.5 - 2.2 mmol/L [facility] FIO2 Art 40 % [facility] PF Ratio Art 280 [facility] Blood 08/15/2022 3:11 AM EDT 08/15/2022 3:11 AM EDT Carlos Terry MD POINT OF CARE TEST O RDERABLES [facility] [place] [address] * (ABNORMAL) Hepatic Function Panel (08/15/2022 3:05 AM EDT) Protein, Total 5.6(L) 6.1 - 8.0 g/dL [facility] Albumin 2.4(L) 3.2 - 5.2 g/dL [facility] Aspartate Aminotransferase 25 0 - 30 unit/L [facility] Alanine Aminotransferase 13 0 - 30 unit/L [facility] Alkaline Phosphatase 99 35 - 105 unit/L [facility] Bilirubin, Total 0.2 0.2 - 1.3 mg/dL [facility] Bilirubin, Direct 0.1 0.0 - 0.3 mg/dL [facility] Blood Venous Draw / Unknown 08/15/2022 3:05 AM EDT 08/15/2022 3:17 AM EDT Narrative Resulting Agency Comment Spec In Lab Vanessa Escalona MD CHEMISTRY ORDERABLE S [facility] [place] [address] * (ABNORMAL) Basic Metabolic Panel (non-fasting) (08/15/2022 3:05 AM EDT) Glucose 378(H) 65 - 199 mg/dL [facility] Comment:Diabetes: >=200 mg/d L plus symptoms Blood Urea Nitrogen 38(H) 8 - 18 mg/dL [facility] Creatinine 1.42(H) 0.70 - 1.20 mg/dL [facility] Sodium 140 135 - 145 mmol/L [facility] Potassium 3.7 3.5 - 5.0 mmol/L [facility] Comment: Please note: ??Patients with WBC >100,000 may have falsely elevated Potassium levels. ??For accurate Potassium quantification in these patients send serum separator tube (gold top) for subsequent determinations. ??Contact the Clinical Chemistry Laboratory if there are any questions. Chloride 104 98 - 107 mmol/L [facility] Carbon Dioxide Not Perf 22 - 31 [facility] Comment:Add-on request. Samp le too old to perform test. Anion Gap Unable to Calculate 5 - 15 mmol/L [facility] Calcium 8.3(L) 8.5 - 10.5 mg/dL [facility] Est Glomerular Filtration Rate 42(L) >=60 mL/min/1 .73 m?? [facility] Comment: This patient's estimated GFR [...] Cobb MD CHEMISTRY ORDERABLES Performing Organization Address [facility] [place] [address] * Scan, Peripheral Blood (08/15/2022 3:05 AM EDT) Plat estimate Increased [facility] RBC Morphology Abnormal [facility] Macrocyte 1-5 /HPF [facility] Microcyte 6-10 /HPF [facility] Comment:Corrected from 1-5 / HPF [NA] on 08/15/22 3:54:48 EDT by Cedric Forbes Hypochromia Moderate [facility] Target Cells 1-5 /HPF [facility] Newman Cells gtr than 10 /HPF [facility] Comment:Corrected from 1-5 / HPF [NA] on 08/15/22 3:54:48 EDT by Cedric Forbes Platelet Clumps Present [facility] Blood 08/15/2022 3:05 AM EDT 08/15/2022 3:16 AM EDT Narrative Resulting Agency Comment Spec In Lab Tyler Cobb MD HEMATOLOGY ORDERABLE S Performing Organization Address [facility] [place] [address] * (ABNORMAL) Differential, Automated (08/15/2022 3:05 AM EDT) Neutrophil % 89.8 % [facility] Neutrophil Absolute 35.76(H) 1.70 - 6.10 x10(3)/mc L [facility] Lymph % 2.3 % [facility] Lymphocytes Abs 0.9 0.9 - 3.2 x10(3)/mc L [facility] Monocyte % 4.6 % [facility] Monocyte Abs 1.8(H) 0.3 - 0.9 x10(3)/mc L [facility] Eos % 0.5 % [facility] Eosinophils Abs 0.2 0.0 - 0.4 x10(3)/mc L [facility] Basophil % 0.1 % [facility] Baso Absolute 0.0 0.0 - 0.1 x10(3)/mc L [facility] Immature Gran % 2.70 % [facility] Comment: Immature granulocytes(IG's)percentage and absolute count will include metamyelocytes, myelocytes, and promyelocytes. Blood smears from CBCs yielding IG's will be scanned manually for concordance. If this scan disagrees with the automated IG or if promyelocytes are noted, a manual differential will be performed. Immature Gran Absolute 1.08(H) 0.00 - 0.04 x10(3)/mc L [facility] Blood 08/15/2022 3:05 AM EDT 08/15/2022 3:16 AM EDT Narrative Resulting Agency Comment Spec In Lab Tyler Cobb MD HEMATOLOGY ORDERABLE S [facility] [place] [address] * (ABNORMAL) Hemogram (08/15/2022 3:05 AM EDT) White Blood Cell 39.8(Critica l) 4.0 - 9.5 x10(3)/mc L [facility] Comment: This result has been called to MIROSLAVA BERRY by Cedric Forbes on 08 15 2022 at 0341, and has been read back. Red Blood Cell 5.08 4.00 - 5.21 x10(6)/mc L [facility] Hemoglobin 10.2(L) 11.7 - 15.5 g/dL [facility] Hematocrit 34.4(L) 35.7 - 45.8 % [facility] Mean Cell Volume 67.7(L) 82.6 - 94.4 fL [facility] Mean Cell Hemoglobin 20.1(L) 27.1 - 32.0 pg [facility] Mean Cell Hemoglobin Concentration 29.7(L) 31.7 - 35.0 g/dL [facility] Platelet 350 145 - 357 x10(3)/mc L [facility] RDW Standard Deviation 68.0(H) 37.0 - 46.0 fL [facility] RDW coefficient of variation 29.2(H) 11.5 - 14.1 % [facility] Mean Platelet Volume Not Measured 7.6 - 12.9 fL [facility] NRBC% auto 0.3 % [facility] NRBC Absolute 0.130(H) 0.000 - 0.000 x10(3)/mc L [facility] Blood 08/15/2022 3:05 AM EDT 08/15/2022 3:16 AM EDT Narrative Resulting Agency Comment Spec In Lab Tyler Cobb MD HEMATOLOGY ORDERABLE S Performing Organization Address City/State/[facility] Co de Phone Number [facility] [place] [address] * (ABNORMAL) Hemoglobin A1c (08/15/2022 3:05 AM EDT) Hemoglobin A1c 6.2(H) 4.3 - 5.6 % [facility] Comment: Reference Range: 4.3 - [...] Mellitus, Diabetes Care 2013; 36: Suppl. 1, O02-04 Estimated Average Glucose 130 mg/dL [facility] Comment: eAG equivalents for HbA1c [...] into estimated average glucose values. ??Diabetes Care 2008:31(8):4654-3281. Blood 08/15/2022 3:05 AM EDT 08/15/2022 3:16 AM EDT Narrative Resulting Agency Comment Spec In Lab Carlos Terry MD CHEMISTRY ORDERABLES [facility] [place] [address] * Heparin (unfractionated) Level (08/15/2022 3:05 AM EDT) UF Heparin 0.92 IU/mL [facility] Comment: Heparin (anti-Xa) levels [...] MD HEMATOLOGY ORDERABLE S Performing Organization Address City/[facility]/ZIP Co de Phone Number [facility] [place] [address] * (ABNORMAL) Phosphorus (08/15/2022 3:05 AM EDT) Phosphorus 5.3(H) 2.5 - 4.5 mg/dL [facility] Blood 08/15/2022 3:05 AM EDT 08/15/2022 3:16 AM EDT Narrative Resulting Agency Comment Spec In Lab Richard Pascal MD CHEMISTRY ORDERABLES Performing Organization Address [facility] Co de Phone Number [facility] [place] [address] * Magnesium (08/15/2022 3:05 AM EDT) Magnesium 0.90 0.69 - 1.07 mmol/L [facility] Blood 08/15/2022 3:05 AM EDT 08/15/2022 3:16 AM EDT Narrative Resulting Agency Comment Spec In Lab Richard Pascal MD CHEMISTRY ORDERABLES Performing Organization Address [facility] Co de Phone Number [facility] [place] [address] * (ABNORMAL) Urinalysis Microscopic Exam (08/15/2022 1:50 AM EDT) RBC, Urine 15(H) 0 - 4 /HPF [facility] Comment: Interpret results with caution, microscopic results are from suboptimal specimen volume WBC, Urine 5 0 - 5 /HPF [facility] Comment: Interpret results with caution, microscopic results are from suboptimal specimen volume Bacteria, Urine Many(A) None /HPF [facility] Comment: Interpret results with caution, microscopic results are from suboptimal specimen volume Squamous Epithelial Cells Raw Data, Urine 4 <=4 /HPF [facility] Hyaline Casts, Urine <1 0 - 2 /LPF [facility] Comment: Interpret results with caution, microscopic results are from suboptimal specimen volume Indwelling Catheter Urine 08/15/2022 1:50 AM EDT 08/15/2022 1:55 AM EDT Narrative Resulting Agency Comment Spec In Lab Tyler Cobb MD URINE ORDERABLES [facility] [place] [address] * (ABNORMAL) Urinalysis with reflex Culture (08/15/2022 1:50 AM EDT) Glucose, Urine Dipstick Negative Negative mg/dL [facility] Protein, Urine Dipstick Trace(A) Negative mg/dL [facility] Bilirubin, Urine Dipstick Negative Negative mg/dL [facility] Comment: Clinical correlation required for positive Urine Bilirubin results as false positive may occur with some drugs and drug related products. If a false positive is suspected a serum total bilirubin should be considered if clinically indicated. Urobilinogen, Urine Dipstick Normal Normal mg/dL [facility] pH, Urn (dipstick) 5.5 5.0 - 8.0 [facility] Blood, Urine Dipstick Large(A) Negative mg/dL [facility] Ketone, Urine Dipstick Trace(A) Negative mg/dL [facility] Nitrite, Urine Dipstick Negative Negative [facility] Leukocytes, Urine Dipstick Trace(A) Negative mcL [facility] Appearance, Urine Dipstick Cloudy(A) Clear [facility] Specific [place] Urine Automated 1.015 1.005 - 1.030 [facility] Color, Urine Dipstick Yellow Yellow [facility] Reflex to Culture No [facility] Indwelling Catheter Urine 08/15/2022 1:50 AM EDT 08/15/2022 1:55 AM EDT Narrative Resulting Agency Comment Spec In Lab Carlos Terry MD URINE ORDERABLES [facility] [place] [address] * XR Chest One View (08/15/2022 1:14 [...] who have questions please contact the health infant childcare provider that requested your imaging first. ? Narrative 08/15/2022 3:55 AM EDT EXAMINATION: XR CHEST ONE VIEW CLINICAL HISTORY: confirm [place] placement TECHNIQUE: 1 view of the chest COMPARISON: 08/15/2022 Procedure Note Davi Terry MD - 08/15/2022 EXAMINATION: XR CHEST ONE VIEW CLINICAL HISTORY: confirm [place] placement TECHNIQUE: 1 view of the chest [...] patients who have questions please contactthe health infant childcare provider that requested your imaging first. Carlos Terry MD IMG DX ORDERABLES * (ABNORMAL) Coox2 (08/15/2022 1:13 AM EDT) pO2, Coox 36 mmHg [facility] Hgb Blood Gas 11.4(L) 11.7 - 15.5 g/dL [facility] Oxyhemoglobin, Coox 63.3 % [facility] Carboxyhemoglo bin, Coox 0.6 % [facility] Comment: Nonsmokers: 0.5-1.5% COHB Smokers: Variable, but usually less than 10% Toxic: 20-30% COHB Lethal: Greater than 60% COHB Methemoglobin, Coox 0.8 <=1.5 % [facility] Source Coox Mixed Venous [facility] Blood 08/15/2022 1:13 AM EDT 08/15/2022 1:13 AM EDT Carlos Terry MD POINT OF CARE TEST O RDERABLES Performing Organization Address [facility] Co de Phone Number [facility] [place] [address] * Blood culture (08/15/2022 1:10 AM EDT) Blood Culture No growth at 5 days. [facility] Blood 08/15/2022 1:10 AM EDT 08/15/2022 2:05 AM EDT Comment:neck Narrative Resulting Agency Comment Spec In Lab Carlos Terry MD MICROBIOLOGY - BLOOD ORDERABLES Performing Organization Address City/[facility] [place] [address] * XR Chest One View (08/15/2022 1:00 [...] who have questions please contact the health infant childcare provider that requested your imaging first. ? Electronically signed by: Davi Terry MD, [facility] [place] ([phone]), at 08/15/2022 3:53 AM Narrative 08/15/2022 3:53 [...] patients who have questions please contactthe health infant childcare provider that requested your imaging first. Electronically signed by: Davi Terry MD, [facility] [place]([phone]), at 08/15/2022 3:53 AM Carlos Terry MD IMG DX ORDERABLES * MRSA PCR Screen ([facility]/CGP/APD/[facility]) (08/15/2022 12:50 AM EDT) MRSA PCR Negative Negative [facility] MRSA (Interp) Methicillin-resist ant Staphylococcus aureus (MRSA) is NOT DETECTED The MRSA target DNA sequences (mec and SCC) were not detected within the acceptable ranges using the Xpert MRSA NxG on the GeneXpert Dx System (Unfold). This suggests the absence of MRSA in the patient specimen submitted for testing. This test is cleared by the U.S. Food and Drug Administration for clinical use and its performance characteristics have been verified by the [facility] at [facility]. This result does not rule out the presence of any other organisms. Rare false negative results may occur if MRSA is present at low concentrations with much higher concentrations of other organisms including MRSE or S. aureus with an empty SCC cassette. [facility] Comment: [VERIFIED DATE]08.17.22 Verified By:Shannon Smiley (Electronic Signature) Nasopharyngeal Swab 08/16/19 12:50 AM EDT 08/17/2022 8:38 AM EDT Comment:Specimen Type->Nasop haryngeal Swab Narrative Resulting Agency Comment Spec In Lab Carlos Terry MD MOLECULAR ORDERABLES [facility] [place] [address] * TSH Brinson (08/15/2022 12:00 AM EDT) Thyroid Stimulating Hormone 0.28 0.27 - 4.20 mcIU/mL [facility] Comment: Reference Interval (mcIU/mL): Females: ??First Trimester: 0.23-3.88 ??Second Trimester: 0.22-3.90 ??Third Trimester: 0.44-4.66 Blood Venous Draw / Unknown 08/15/2022 08/15/2022 12:26 AM EDT Narrative Resulting Agency Comment Spec In Lab Jigar Streeter MD CHEMISTRY ORDERABLES [facility] [place] [address] * Gold Tube HOLD (08/15/2022 12:00 AM EDT) Gold Hold Sample in lab. [facility] Blood Venous Draw / Unknown 08/15/2022 08/15/2022 12:16 AM EDT Tyler Cobb MD CHEMISTRY ORDERABLES [facility] [place] [address] * (ABNORMAL) APTT (08/15/2022 12:00 AM EDT) Partial Thromboplastin Time 154(Criti tonya) 25 - 37 sec [facility] Comment: Critical Result called by ?? [...] MD HEMATOLOGY ORDERABLE S Performing Organization Address [facility] Co de Phone Number [facility] [place] [address] * (ABNORMAL) Prothrombin Time (08/15/2022 12:00 AM EDT) Prothrombin Time 22.3(H) 9.4 - 12.5 sec [facility] International Normalization Ratio 2.0 [facility] Comment: An INR <2.0 indicates adequate [...] MD HEMATOLOGY ORDERABLE S Performing Organization Address [facility] Co de Phone Number [facility] [place] [address] * (ABNORMAL) BLOOD GAS 2 ARTERIAL (08/14/2022 11:57 PM EDT) pH, Arterial 7.25(Criti tonya) 7.35 - 7.45 [facility] Comment:Noted by technician helper instrument. PCO2, Arterial 42 35 - 45 mmHg [facility] PO2, Arterial 242(H) 85 - 104 mmHg [facility] Bicarbonate, Arterial 17.9(L) 20.0 - 26.0 mmol/L [facility] Base Excess, Arterial -9.3(L) -3.0 - 3.0 mmol/L [facility] Hgb Blood Gas 11.2(L) 11.7 - 15.5 g/dL [facility] Oxyhemoglobin, Arterial 98.0(H) 94.0 - 97.0 % [facility] Carboxyhemoglob in, Arterial 0.3 % [facility] Comment: Nonsmokers: 0.5-1.5% COHB Smokers: Variable, but usually less than 10% Toxic: 20-30% COHB Lethal: Greater than 60% COHB Methemoglobin, Arterial 0.9 <=1.5 % [facility] Na Whole Blood 140 135 - 145 mmol/L [facility] K Whole Blood 3.5 3.5 - 5.0 mmol/L [facility] Comment: Please note: Patients with WBC >100,000 may have falsely elevated Potassium levels. Contact the Clinical Chemistry Laboratory if there are any questions. ICa Whole Blood 1.16 1.15 - 1.33 mmol/L [facility] Comment: Note: ??Total bilirubin higher than 20 mg/dL may lead to falsely low ionized calcium. CL Whole Blood 110(H) 98 - 107 mmol/L [facility] Gluc Whole Bld 235(H) 65 - 199 mg/dL [facility] Comment:Diabetes: >=200 mg/d L plus symptoms. Lactate WB 2.6(H) 0.5 - 2.2 mmol/L [facility] FIO2 Art 60 % [facility] PF Ratio Art 403 [facility] Blood 08/14/2022 11:5 7 PM EDT 08/14/2022 11:57 PM EDT Carlos Terry MD POINT OF CARE TEST O RDERABLES [facility] [place] [address] * Scan, Peripheral Blood (08/14/2022 11:55 PM EDT) Plat estimate Increased [facility] RBC Morphology Abnormal [facility] Microcyte 6-10 /HPF [facility] Hypochromia Moderate [facility] [facility] Newman Cells gtr than 10 /HPF [facility] Platelet Clumps Present [facility] Blood 08/14/2022 11:5 5 PM EDT 08/15/2022 12:06 AM EDT Narrative Resulting Agency Comment Spec In Lab Tyler Cobb MD HEMATOLOGY ORDERABLE S Performing Organization Address City/[facility]/ZIP Co de Phone Number [facility] [place] [address] * Vancomycin Level, Random (08/14/2022 11:55 PM EDT) Vancomycin, Random 12.1 mg/L [facility] Comment: This level is for determination of the patient's vancomycin eoqi-mmfcj-fym-curve (AUC) value. Contact the inpatient pharmacy for interpretation. Blood Venous Draw / Unknown 08/14/2022 11:55 PM EDT 08/15/2022 12:11 AM EDT Carlos Terry MD CHEMISTRY ORDERABLES [facility] [place] [address] * (ABNORMAL) Differential, Automated (08/14/2022 11:55 PM EDT) Neutrophil % 91.3 % [facility] Neutrophil Absolute 33.56(H) 1.70 - 6.10 x10(3)/mc L [facility] Lymph % 1.2 % [facility] Lymphocytes Abs 0.4(L) 0.9 - 3.2 x10(3)/mc L [facility] Monocyte % 4.4 % [facility] Monocyte Abs 1.6(H) 0.3 - 0.9 x10(3)/mc L [facility] Eos % 0.5 % [facility] Eosinophils Abs 0.2 0.0 - 0.4 x10(3)/mc L [facility] Basophil % 0.5 % [facility] Baso Absolute 0.2(H) 0.0 - 0.1 x10(3)/mc L [facility] Immature Gran % 2.10 % [facility] Comment: Immature granulocytes(IG's)percentage and absolute count will include metamyelocytes, myelocytes, and promyelocytes. Blood smears from CBCs yielding IG's will be scanned manually for concordance. If this scan disagrees with the automated IG or if promyelocytes are noted, a manual differential will be performed. Immature Gran Absolute 0.77(H) 0.00 - 0.04 x10(3)/mc L [facility] Blood 08/14/2022 11:5 5 PM EDT 08/15/2022 12:06 AM EDT Narrative Resulting Agency Comment Spec In Lab Tyler Cobb MD HEMATOLOGY ORDERABLE S [facility] [place] [address] * (ABNORMAL) Hemogram (08/14/2022 11:55 PM EDT) White Blood Cell 36.7(Critica l) 4.0 - 9.5 x10(3)/mc L [facility] Comment: This result has been called to HARLEY CASON by Cedric Forbes on 08 15 2022 at 0018, and has been read back. Red Blood Cell 5.28(H) 4.00 - 5.21 x10(6)/mc L [facility] Hemoglobin 10.7(L) 11.7 - 15.5 g/dL [facility] Hematocrit 35.9 35.7 - 45.8 % [facility] Mean Cell Volume 68.0(L) 82.6 - 94.4 fL [facility] Mean Cell Hemoglobin 20.3(L) 27.1 - 32.0 pg [facility] Mean Cell Hemoglobin Concentration 29.8(L) 31.7 - 35.0 g/dL [facility] Platelet 370(H) 145 - 357 x10(3)/mc L [facility] RDW Standard Deviation 68.2(H) 37.0 - 46.0 fL [facility] RDW coefficient of variation 29.3(H) 11.5 - 14.1 % [facility] Mean Platelet Volume Not Measured 7.6 - 12.9 fL [facility] NRBC% auto 0.2 % [facility] NRBC Absolute 0.080(H) 0.000 - 0.000 x10(3)/mc L [facility] Blood 08/14/2022 11:5 5 PM EDT 08/15/2022 12:06 AM EDT Narrative Resulting Agency Comment Spec In Lab Tyler Cobb MD HEMATOLOGY ORDERABLE S [facility] [place] [address] * Blood culture (08/14/2022 11:55 PM EDT) Blood Culture No growth at 5 days. [facility] Blood 08/14/2022 11:5 5 PM EDT 08/15/2022 1:51 AM EDT Comment:R wrist Narrative Resulting Agency Comment Spec In Lab Carlos Terry MD MICROBIOLOGY - BLOOD ORDERABLES Performing Organization Address [facility] Co de Phone Number [facility] [place] [address] * (ABNORMAL) pro-Brain Natriuretic Peptide (08/14/2022 11:55 PM EDT) NT-proBNP >35,000(H) <=124 pg/mL [facility] Blood 08/14/2022 11:5 5 PM EDT 08/15/2022 12:06 AM EDT Narrative Resulting Agency Comment Spec In Lab Carlos Terry MD CHEMISTRY ORDERABLES Performing Organization Address [facility] Co de Phone Number [facility] [place] [address] * (ABNORMAL) Phosphorus (08/14/2022 11:55 PM EDT) Phosphorus 5.9(H) 2.5 - 4.5 mg/dL [facility] Blood 08/14/2022 11:5 5 PM EDT 08/15/2022 12:06 AM EDT Narrative Resulting Agency Comment Spec In Lab Carlos Terry MD CHEMISTRY ORDERABLES Performing Organization Address [facility] Co de Phone Number [facility] [place] [address] * Magnesium (08/14/2022 11:55 PM EDT) Magnesium 0.97 0.69 - 1.07 mmol/L [facility] Blood 08/14/2022 11:5 5 PM EDT 08/15/2022 12:06 AM EDT Narrative Resulting Agency Comment Spec In Lab Carlos Terry MD CHEMISTRY ORDERABLES [facility] [place] [address] * (ABNORMAL) Troponin (08/14/2022 11:55 PM EDT) Troponin-T, High Sensitivity 617(H) <=14 ng/L [facility] Comment: This patient's troponin T concentration [...] troponin value can be found in the [facility] Test Catalog Troponin - [facility] Test Catalog Reference: Fourth [place] Definition of Myocardial Infarction. Journal of the [place] [employer] 2018;72:8491-4414 Blood 08/14/2022 11:5 5 PM EDT 08/15/2022 12:06 AM EDT Narrative Resulting Agency Comment Spec In Lab Carlos Terry MD CHEMISTRY ORDERABLES Performing Organization Address City/[facility]/ZIP Co de Phone Number [facility] [place] [address] * (ABNORMAL) Basic Metabolic Panel (non-fasting) (08/14/2022 11:55 PM EDT) Glucose 258(H) 65 - 199 mg/dL [facility] Comment:Diabetes: >=200 mg/d L plus symptoms Blood Urea Nitrogen 36(H) 8 - 18 mg/dL [facility] Creatinine 1.40(H) 0.70 - 1.20 mg/dL [facility] Sodium 141 135 - 145 mmol/L [facility] Potassium 4.0 3.5 - 5.0 mmol/L [facility] Comment: Please note: ??Patients with WBC >100,000 may have falsely elevated Potassium levels. ??For accurate Potassium quantification in these patients send serum separator tube (gold top) for subsequent determinations. ??Contact the Clinical Chemistry Laboratory if there are any questions. Chloride 107 98 - 107 mmol/L [facility] Carbon Dioxide 17(L) 22 - 31 mmol/L [facility] Anion Gap 17(H) 5 - 15 mmol/L [facility] Calcium 8.5 8.5 - 10.5 mg/dL [facility] Est Glomerular Filtration Rate 43(L) >=60 mL/min/1. 73 m?? [facility] Comment: This patient's estimated GFR [...] In Lab Carlos Terry MD CHEMISTRY ORDERABLES [facility] [place] [address] * (ABNORMAL) Point of Care Blood Gas Historical (08/14/2022 10:32 PM EDT) pH, POC 7.15(Crit ical) 7.35 - 7.45 [facility] Comment:Critical result OK - [facility] pCO2, POC 68(Critic al) 35 - 45 mmHg [facility] Comment:Critical result OK - [facility] pO2, POC 47(Critic al) 85 - 104 mmHg [facility] Comment:Critical result OK - [facility] Base Excess, POC -5.0(L) -3.0 - 3.0 mmol/L [facility] Bicarbonate, POC 23.9 20.0 - 26.0 mmol/L [facility] Sodium, POC 142 135 - 145 mmol/L [facility] POC Potassium 3.8 3.5 - 5.0 mmol/L [facility] Ionized Calcium, POC 1.21 1.15 - 1.33 mmol/L [facility] POC Hematocrit 36.0 34.0 - 45.0 % [facility] POC Calc Hgb 12.2 11.2 - 15.7 g/dL [facility] Comment:The calculation of h emoglobin from hematocrit assumes a normal MCHC. POC Bgas Loc [facility] Blood 08/14/2022 10:3 2 PM EDT 08/16/2022 12:00 PM EDT Carlos Terry MD CHEMISTRY ORDERABLES Performing Organization Address City/State/[facility] Co de Phone Number [facility] [place] [address] * Film Library- Storage Only DX Chest (08/14/2022 12:00 AM EDT) Narrative Dicom, Auditing User - 08/15/2022 8:43 AM EDT This exam is auto-finalizing. It's purpose is for storage only. Audi Serna MD [facility] FILM LIBRARY ORD ERABLES * Film Library- Storage Only CT Head (08/13/2022 12:00 AM EDT) Narrative Dicom, Auditing User - 08/15/2022 8:36 AM EDT This exam is auto-finalizing. It's purpose is for storage only. Audi Serna MD [facility] FILM LIBRARY ORD ERABLES * Film Library- Storage Only DX Chest (08/12/2022 12:05 AM EDT) Narrative Dicom, Auditing User - 08/15/2022 8:37 AM EDT This exam is auto-finalizing. It's purpose is for storage only. Audi Serna MD [facility] FILM LIBRARY ORD ERABLES * Film Library- Storage Only CT Chest (08/12/2022 12:00 AM EDT) Narrative Dicom, Auditing User - 08/15/2022 8:36 AM EDT This exam is auto-finalizing. It's purpose is for storage only. Audi Serna MD [facility] FILM LIBRARY ORD ERABLES * Film Library- Storage Only DX Chest (08/08/2022 12:15 AM EDT) Narrative Dicom, Auditing User - 08/15/2022 8:43 AM EDT This exam is auto-finalizing. It's purpose is for storage only. Audi Serna MD [facility] FILM LIBRARY ORD ERABLES * Film Library- Storage Only DX Pelvis (08/08/2022 12:10 AM EDT) Narrative Dicom, Auditing User - 08/15/2022 8:37 AM EDT This exam is auto-finalizing. It's purpose is for storage only. Audi Serna MD [facility] FILM LIBRARY ORD ERABLES * Film Library- Storage Only DX Lower Extremity (08/08/2022 12:05 AM EDT) Narrative Dicom, Auditing User - 08/15/2022 8:37 AM EDT This exam is auto-finalizing. It's purpose is for storage only. Audi Serna MD [facility] FILM LIBRARY ORD ERAREYMUNDO documented in this encounter Visit Diagnoses Not [...] Intravenous, 2 TIMES DAILY, First dose on Wed08/15/22 at 0000, Until Discontinued, Routine Given 09/25/2022 [...] at 1327, Cycle x 14 hrs from 7413-4994 daily Administer flushes and check residuals per policy, Which tube feed product? Nutren 1.5, Additional Information (if any): Cycle x 14 hrs from 8768-1054 daily New Bag 09/24/2022 6:16 AM EDT [...] BG 186)1153 (Given - Provider: Leann Harding RN)1647 (Given - Provider: Leann Harding RN)2045 (Given [...] RN)2005 (Given - Provider: Sofia Montoya RN) 09 (Given - Provider: Leann Harding RN)2045 (Given [...] Montoya RN) 2045 (Given - Provider: Nubia Greenwood, ERI) sacubitriL-valsartan (Entresto) 24-26 mg per tablet 1 [...] Harding RN)142 (Given - Provider: Leann Harding RN)204 (Given - Provider: Nubia Greenwood RN) 0346 (Given - Provider: Nubia Greenwood, ERI)0823 (Given - Provider: Leann Harding RN) Continuous Medication Order 09/23/2022 09/24/2022 09/25/2022 tube feeding diet 1,008 mL, Per G Tube, at 72 mL/hr, Cyclic-(Tube feed), Starting on Wed09/18/22 at 0600, Until Wed09/25/22 at 1327, Cycle x 14 hrs from 8245-4365 daily Administer flushes and check residuals per policy, Which tube feed product? Nutren 1.5, Additional Information (if any): Cycle x 14 hrs from 6040-7761 daily 0600 (New Bag - Provider: Sofia Montoya, ERI)2009 (New Bag - Provider: Sofia Montoya, RN) 615 (New Bag - Provider: Sofia Montoya, ERI)2035 (Stopped - Provider: Nubia Greenwood RN) PRN [...] documented as of this encounter Care Teams Employment Evaluator/Case Manager Relationship Specialty Start Date End Date Chris Stanley APRN [address] [place] [address] PCP - General Family Medicine 02/03/19 documented as of this encounter
--- OUTSIDE RECORDS SUMMARY | 2024-04-19 23:01 | XMS_ITS | Encounter Summary ---
Author Organization [facility] [place] [address] Care Team Providers Care Material Handling Supervisor Name Role Phone Ana Gillespie VAUGHN Primary Care Provider [phone] Encounter Details Date Type Department Care Team (Late st Contact Info) Description 08/15/2022 [place] [phone] Unknown None Social History Tobacco Use Types [...] 04/26/2024 8:30 AM [place] [address] Gavin Carrillo MD [facility] [place] [address] 06/05/2024 1:20 PM EST Office Visit Cardiology at [address] [phone] Milagros Hernandez MD [facility] [place] [address] Scheduled Procedures Name Priority Associated Diagnoses Date/Ti [...] 10:27 AM EDT ? Echocardiogram Report Name: TERRY LEONGJose Juan Orlando ?Study Date: 08/15/2022 02:41 AM : 1960 [...] Terry MD - 08/15/2022 Echocardiogram Report Name: LEONGJENNIFER Study Date: 08/15/2022 02:41AM : 1960 Age: [...] on filedocumented in this encounter Care Teams Material Handling Supervisor Relationship Specialty Start Date End Date Ana Gillespie APRN [address] [place] [address] PCP - General Family Medicine 02/03/19 documented as of this encounter
--- OUTSIDE RECORDS SUMMARY | 2024-04-19 23:01 | XMS_ITS | Encounter Summary ---
Author Organization [facility] [place] [address] Care Team Providers Care Mate Fishing Vessel Name Role Phone Ana Gillespie VAUGHN Primary Care Provider [phone] Encounter Details Date Type Department Care Team (Late st Contact Info) Description 08/14/2022 Ancillary Procedure Radiology Library at [facility] [place] [phone] Social History Tobacco Use Types Packs/Day Years [...] 04/26/2024 8:30 AM EST [place] [phone] Gavin Carrillo MD [facility] INTERVENTIONAL RADIOLOGY [place], [place] [id number] 06/05/2024 1:20 PM EST Office Visit Cardiology at [address] [phone] Milagros Hernandez MD [facility] [address] Scheduled Procedures Name Priority Associated Diagnoses Date/Ti [...] is for storage only. Ayo Serna MD [facility] FILM LIBRARY ORD ERABLES documented in this encounter Visit Diagnoses Not on filedocumented in this encounter Care Teams Mate Fishing Vessel Relationship Specialty Start Date End Date Ana Gillespie APRN [address] [place] [address] PCP - General Family Medicine 02/03/19 documented as of this encounter
--- OUTSIDE RECORDS SUMMARY | 2024-04-19 23:01 | XMS_ITS | Encounter Summary ---
Author Organization [facility]ly [facility] [address] [facility] Marly petersen [place] [id number] Care Team Providers Care General Accounting Clerk Name Role Phone Ana Gillespie APRN Primary Care Provider [phone] Encounter Details Date Type Department Care Team [...] 04/26/2024 8:30 AM EST Appointment Radiology at [place] [phone] Gavin Carrillo MD [facility] [place] [address] 06/05/2024 1:20 PM EST Office Visit Cardiology at [address] [phone] Milagros Hernandez MD [facility] [place] [address] Scheduled Procedures Name Priority Associated Diagnoses Date/Ti me EGD, UPPER GI ENDOSCOPY (WRV U 2.09) Peptic stricture of esophagus documented as of this encounter Visit Diagnoses Not on filedocumented in this encounter Care Teams General Accounting Clerk Relationship Specialty Start Date End Date Ana Gillespie APRN [address] [place] [address] PCP - General Family Medicine 02/03/19 documented as of this encounter
--- OUTSIDE RECORDS SUMMARY | 2024-04-19 23:01 | XMS_ITS | Encounter Summary ---
Author Organization [facility] [place] [address] Care Team Providers Care Lace Inspector Name Role Phone Jose Miguel Ana CREDENTIALING ASSISTANT Primary Care Provider [phone] Encounter Details Date Type Department Care Team (Late st Contact Info) Description 08/10/2022 Ancillary Procedure Radiology Library at [facility] [place] [address] Ana Gillespie APRN [address] [place] [address] Social History Tobacco Use Types [...] 04/26/2024 8:30 AM EST Appointment [place] [phone] Gavin Carrillo MD [facility] INTERVENTION[place] [address] 06/05/2024 1:20 PM EST Office Visit Cardiology at [address] [phone] Milagros Hernandez MD [facility] [place] [address] Scheduled Procedures Name Priority Associated Diagnoses Date/Ti me EGD, UPPER GI ENDOSCOPY (WRV U 2.09) Peptic stricture of esophagus documented as of this encounter Procedures Procedure Name Priority Date/Time Associated Diagnosis Comments FILM LIBRARY STORAGE ONLY DX HIP Routine 08/10/2022 12:00 AM EDT documented in this encounter Results * Film Library- Storage Only DX Hip (08/10/2022 12:00 AM EDT) Narrative [facility] - 08/14/2022 6:05 PM EDT This exam is auto-finalizing. It's purpose is for storage only. Ana Gillespie APRN [facility] FILM LIBRARY ORD ERABLES [place], [place] documented in this encounter Visit Diagnoses Not on filedocumented in this encounter Care Teams Lace Inspector Relationship Specialty Start Date End Date Ana Gillespie APRN [address] [place] [address] PCP - General Family Medicine 02/03/19 documented as of this encounter
--- OUTSIDE RECORDS SUMMARY | 2024-04-19 23:01 | XMS_ITS | Encounter Summary ---
Author Organization [facility] [place] [address] Care Team Providers Care Hydro Mechanic Name Role Phone Ana Gillespie VAUGHN Primary Care Provider [phone] Reason for Visit * Auth/Cert (Routine) Specialty Diagnoses / Procedures Referred By Esperanza rodríguez Referred To Contact Diagnoses Shock CARDIOGENIC PULMONARY EDEMA Procedures ER Shira Melton MD [facility] [place] [address] [facility] Referral ID Status Reason Start Date Expiration Date Visits Re quested Visits Authorized [id number] 1 1 Encounter Details Date Type Department Care Team (Latest Contact Info) Description 08/15/2022 9:15 AM EDT - 08/15/2022 11:59 PM EDT Hospital Encounter [place] [address] Discharge Disposition: Home Social History Tobacco Use [...] kit. 1 each 0 12/14/2014 Insulin [place], Disposable, (BD INSULIN PEN NEEDLE UF MINI) 31 x 07/23 NeedleIndications:Di abetes mellitus type 2, uncontrolled 1 Device by [facility].(Non-Drug; Combo Route) route 3 times daily as [...] 04/26/2024 8:30 AM EST [place] [address] Gavin Carrillo MD [facility] [place] [address] 06/05/2024 1:20 PM EST Office Visit Cardiology at [address] [phone] Milagros Hernandez MD [facility] [place] [address] Scheduled Procedures Name Priority Associated [...] 09:38 AMBP: 102/54 mmHg ? Patient Location: [address] [place] [address] ? HR: 99 : 1960 ? Height: 152 cm ? Account: [id number] Age: 62 yrs ? Weight: 69 kg Gender: Female ?BSA: 1.7 m2 Ordering Physician: PETRONA^SHIRA^M Referring Physician: NIURKA AYALA Performed By: Raissa Bhakta RDCS Reason For Study: Septic shock Exam Location: [facility]. Interpretation Summary -Left ventricle [...] today's date, LVEF is slightly improved. Procedure Complete-[id number]. Satisfactory quality. There is normal sinus rhythm. [...] ?large Aneurysmal ?15-16 ?? diffuse Procedure Note Shira Terry MD - 08/15/2022 Echocardiogram Report Name: ISHAN IRVING Study Date: 309:38 AMBP: 102/54 mmHg Patient Location: [id number] HR: 99 : 1960 Height: 152 cm Account: [id number] Age: 62 yrs Weight: 69 kg Gender: Female BSA: 1.7 m2 Ordering Physician: FANY Referring Physician: NIURKA AYALA Performed By: Raissa Bhakta RDCS Reason For Study: Septic shock Exam Location: [facility]. Interpretation Summary -Left ventricle [...] today's date, LVEF is slightly improved. Procedure Complete-09992. Satisfactory quality. There is normal sinus rhythm. [...] Dyskinetic 3-5moderate 5 - 6-14large Aneurysmal 15-16diffuse Shira Terry MD ECHO ORDERABLES documented in this encounter Visit Diagnoses Not on filedocumented in this encounter Additional Health Concerns Infection Onset Date Last Indicated Resolved Time Rule Out COVID-19 08/15/2022 08/15/2022 08/15/2022 11:30 AM EDT Rule Out COVID-19 08/15/2022 08/15/2022 08/15/2022 3:01 PM EDT documented as of this encounter Care Teams Hydro Mechanic Relationship Specialty Start Date End Date Ana Gillespie APRN [address] [place] [address] PCP - General Family Medicine 02/03/19 documented as of this encounter
--- OUTSIDE RECORDS SUMMARY | 2024-04-19 23:01 | XMS_ITS | Encounter Summary ---
Author Organization [facility] Address [facility] Marly petersen [place] [id number] Care Team Providers Care Equipment Service Engineer Name Role Phone Ana Gillespie APRN Primary Care Provider [phone] Encounter Details Date Type Department Care Team [...] 04/26/2024 8:30 AM EST Appointment Radiology at [place] [phone] Gavin Carrillo MD [facility] [place] [address] 06/05/2024 1:20 PM EST Office Visit Cardiology at [address] [phone] Milagros Hernandez MD [facility] [place] [address] Scheduled Procedures Name Priority Associated Diagnoses Date/Ti me EGD, UPPER GI ENDOSCOPY (WRV U 2.09) Peptic stricture of esophagus documented as of this encounter Visit Diagnoses Not on filedocumented in this encounter Care Teams Equipment Service Engineer Relationship Specialty Start Date End Date Ana Gillespie APRN [address] [place] [address] PCP - General Family Medicine 02/03/19 documented as of this encounter
--- OUTSIDE RECORDS SUMMARY | 2024-04-19 23:01 | XMS_ITS | Encounter Summary ---
Author Organization [facility] Address [facility] [place] [address] Care Team Providers Care Switchboard Manager Name Role Phone Ana Gillespie VAUGHN Primary Care Provider [phone] Encounter Details Date Type Department Care Team (Late st Contact Info) Description 08/14/2022 Telephone Cardiology at [address] [address] Jesenia Mejía MD [facility] [place] [address] Social History Tobacco Use Types Packs/Day Years [...] Initial Contact Time: 17:36 Patient Location: [facility] Provider: Dr. Sevilla Presenting Symptoms per OSH: [...] code status and [facility] Pertinent Diagnostic Findings: - Troponin-I 1686 (ULN 60) - Pro-BNP > 35,000 - ECG sinus tachycardia with PVCs, anterior Q waves OSH Interventions: - Dobutamine 2.5 mcg/kg/shawanda - Lasix gtt 5 mg/hr - Heparin gtt - Aspirin 300 rectal BID (after hip) Plan: - Transfer to [facility] - Plavix load Above recommendations/plans are based on my conversation with the referring provider. I have not personally interviewed or examined this patient. Jesenia Mejía MD Painter Sign Maintenance PGY-5 [facility] documented in this encounter Plan of Treatment Upcoming Encounters Date Type Department Care Team (Late st Contact Info) Description 04/26/2024 8:30 AM [place] [phone] Gavin Carrillo MD [facility] [address] [place] [address] 06/05/2024 1:20 PM EST Office Visit Cardiology at [address] [address] Milagros Hernandez MD [facility] [place] [address] Scheduled Procedures Name Priority Associated Diagnoses Date/Ti me EGD, UPPER GI ENDOSCOPY (WRV U 2.09) Peptic stricture of esophagus documented as of this encounter Visit Diagnoses Not on filedocumented in this encounter Care Teams Switchboard Manager Relationship Specialty Start Date End Date Ana Gillespie APRN [address] [place] [address] PCP - General Family Medicine 02/03/19 documented as of this encounter
--- OUTSIDE RECORDS SUMMARY | 2024-04-19 23:01 | XMS_ITS | Encounter Summary ---
[place] [address] Care Team Providers Care Interlocking And Signal Mechanic Name Role Phone Ana Gillespie VAUGHN Primary Care Provider [phone] Reason for Referral * Diagnostic Test (Routine) - Closed Specialty Diagnoses / Procedures Referred By Contac t Referred To Contact Cardiology Diagnoses Sepsis, due to unspecified organism, unspecified whether acute organ dysfunction present Procedures Mobile Sergey Chaparro MD [address] [facility] [place] [address] [facility] [place] [address] Referral ID Status Reason Start Date Expiration Date V isits Requested Visits Authorized [id number] Closed Specialty Service Requested 08/14/2022 08/14/2023 1 1 Reason for Visit * Diagnostic Test (Routine) - Closed Specialty Diagnoses / Procedures Referred By Contac t Referred To Contact Cardiology Diagnoses Sepsis, due to unspecified organism, unspecified whether acute organ dysfunction present Procedures Mobile Sergey Chaparro MD [address] [facility] [place] [address] [facility] [place] [address] Referral ID Status Reason Start Date Expiration Date V isits Requested Visits Authorized [id number] Closed Specialty Service Requested 08/14/2022 08/14/2023 1 1 Encounter Details Date Type Department Care Team (Late st Contact Info) Description 08/14/2022 3:35 PM EDT - 08/14/2022 9:29 PM EDT Hospital Encounter Mobile Echocardiography [facility] [place] [address] Sergey Ayala MD [facility] [place] [address] Sepsis, due to unspecified organism, unspecified whether [...] strips. 300 each 3 12/14/2014 Blood-Glucose Meter ([facility]) KitIndications:Type 2 diabetes mellitus, uncontrolled by [...] 04/26/2024 8:30 AM [place] [phone] Gavin Carrillo MD [facility] [place] [address] 06/05/2024 1:20 PM EST Office Visit Cardiology at [address] [phone] Milagros Hernandez MD [facility] [place] [address] Scheduled Procedures Name Priority Associated [...] 1960 ? Height: 152 cm ? Account: [id number] Age: 62 yrs ? Weight: 69 kg Gender: Female ?BSA: 1.7 m2 Ordering Physician: SERGEY AYALA Referring Physician: SERGEY AYALA Performed By: MARGAUX Reason For Study: Sepsis Exam Location: [facility]. Interpretation Summary 1. Left ventricular systolic [...] 4. No pericardial effusion No prior Procedure Complete-10882. Suboptimal quality. Left Ventricle Left ventricle is [...] Date:08/14/2022 01:47 PMBP: 115/77 mmHg Patient Location: [facility]^24^A : 1960 Height: 152 cm Account: [id number] Age: 62 yrs Weight: 69 kg Gender: Female BSA: 1.7 m2 Ordering Physician: SERGEY AYALA Referring Physician: SERGEY AYALA Performed By: MARGAUX Reason For Study: Sepsis Exam Location: [facility]. Interpretation Summary 1. Left ventricular systolic [...] 4. No pericardial effusion No prior Procedure Complete-50378. Suboptimal quality. Left Ventricle Left ventricle is [...] present documented in this encounter Care Teams Interlocking And Signal Mechanic Relationship Specialty Start Date End Date Ana Gillespie APRN [address] [place] [address] PCP - General Family Medicine 02/03/19 documented as of this encounter
--- OUTSIDE RECORDS SUMMARY | 2024-04-19 23:01 | XMS_ITS | Encounter Summary ---
Author Organization Formerly [facility] [place] [address] Care Team Providers Care Online Marketing Coordinator Name Role Phone Ana Gillespie VAUGHN Primary Care Provider [phone] Encounter Details Date Type Department Care Team (Late st Contact Info) Description 08/13/2022 Ancillary Procedure Radiology Library at [facility] [place] [phone] Social History Tobacco Use Types Packs/Day Years [...] 04/26/2024 8:30 AM EST [place] [phone] Gavin Carrillo MD [facility] INTERVENTIONAL RADIOLOGY [place], [place] [phone] 06/05/2024 1:20 PM EST Office Visit Cardiology at [address] [phone] Milagros Hernandez MD [facility] [place] [address] Scheduled Procedures Name Priority Associated Diagnoses Date/Ti [...] is for storage only. Ayo Serna MD [facility] FILM LIBRARY ORD ERABLES documented in this encounter Visit Diagnoses Not on filedocumented in this encounter Care Teams Online Marketing Coordinator Relationship Specialty Start Date End Date Ana Gillespie APRN [address] [place] [address] PCP - General Family Medicine 02/03/19 documented as of this encounter
--- OUTSIDE RECORDS SUMMARY | 2024-04-19 23:01 | XMS_ITS | Encounter Summary ---
Author Organization [facility] Address [facility] [place] [address] Care Team Providers Care Reinforcing Steel Erector Name Role Phone Ana Gillespie VAUGHN Primary Care Provider [phone] Encounter Details Date Type Department Care Team (Late st Contact Info) Description 08/08/2022 12:10 AM EDT Ancillary Procedure Radiology Library at [facility] [place] [phone] Social History Tobacco Use Types Packs/Day Years [...] 04/26/2024 8:30 AM [place] [phone] Gavin Carrillo MD [facility] INTERVENTIONAL RADIOLOGY [place], [place] [phone] 06/05/2024 1:20 PM EST Office Visit Cardiology at [address] [phone] Milagros Hernandez MD [facility] [place] [address] Scheduled Procedures Name Priority Associated Diagnoses Date/Ti [...] is for storage only. Ayo Serna MD [facility] FILM LIBRARY ORD ERABLES documented in this encounter Visit Diagnoses Not on filedocumented in this encounter Care Teams Reinforcing Steel Erector Relationship Specialty Start Date End Date Ana Gillespie APRN [address] [place] [address] PCP - General Family Medicine 02/03/19 documented as of this encounter
--- OUTSIDE RECORDS SUMMARY | 2024-04-19 23:01 | XMS_ITS | Encounter Summary ---
Author Organization [facility] Address [facility] [place] [address] Care Team Providers Care Biscuit Packer Name Role Phone Ana Gillespie APRN Primary Care Provider [phone] Encounter Details Date Type Department Care Team (Late st Contact Info) Description 08/24/2022 Orders [place] [phone] Chace Carerra, [facility] [place] [address] Social History Tobacco Use Types Packs/Day Years [...] 04/26/2024 8:30 AM EST [place] [address] Gavin Carrillo MD [facility] [place] [address] 06/05/2024 1:20 PM EST Office Visit Cardiology at [address] [phone] Milagros Hernandez MD [facility] [place] [address] Scheduled Procedures Name Priority Associated Diagnoses Date/Ti me EGD, UPPER GI ENDOSCOPY (WRV U 2.09) Peptic stricture of esophagus documented as of this encounter Visit Diagnoses Not on filedocumented in this encounter Care Teams Biscuit Packer Relationship Specialty Start Date End Date Ana Gillespie APRN [address] [place] [address] PCP - General Family Medicine 02/03/19 documented as of this encounter
--- OUTSIDE RECORDS SUMMARY | 2024-04-19 23:02 | XMS_ITS | Encounter Summary ---
Author Organization [facility] Address [facility] [place] [address] Care Team Providers Care Manager Hris Name Role Phone Ana Gillespie APRN Primary Care Provider [phone] Encounter Details Date Type Department Care Team (Late st Contact Info) Description 01/27/2022 11:59 PM EDT Anesthesia [place] [phone] Violet Miguel MD [facility] [place] [address] Anesthesia Record Procedure Summary Procedure Name Responsible [...] BX performed by David Dejesus MD at [facility] ENDOSCOPY ??? PRO COLONOSCOPY, DIAGNOSTIC N/A 03/01/2020 COLONOSCOPY, DIAGNOSTIC performed by David Dejesus MD at [facility] ENDOSCOPY ??? PRO UPPER GI ENDOSCOPY, BIOPSY N/A 04/03/2014 UPPER GASTROINTESTINAL ENDOSCOPY,WITH BIOPSY SINGLE OR MULTIPLE performed by David Dejesus MDat [facility] ENDOSCOPY ??? PRO UPPER GI ENDOSCOPY, BIOPSY N/A 03/20/2016 EGD WITH BIOPSY performed by David Dejesus MD at [facility] ENDOSCOPY ??? PRO UPPER GI ENDOSCOPY, BIOPSY N/A 11/22/2018 EGD WITH BIOPSY (WRVU 2.49) performed by David Dejesus MD at [facility] ENDOSCOPY ??? PRO UPPER GI ENDOSCOPY, BIOPSY N/A 03/01/2020 UPPER GASTROINTESTINAL ENDOSCOPY,WITH BIOPSY SINGLE OR MULTIPLE (WRVU 2.49) performed by David Dejesus MD at [facility] ENDOSCOPY ??? PRO UPPER GI ENDOSCOPY, BIOPSY N/A 09/23/2021 EGD WITH BIOPSY (WRVU 2.49) performed by David Dejesus MD at [facility] ENDOSCOPY ??? PRO UPPER GI ENDOSCOPY, DIAGNOSTIC N/A 04/03/2014 EGD, UPPER GI ENDOSCOPY performed by David Dejesus MD at [facility] ENDOSCOPY ??? PRO UPPER GI ENDOSCOPY, DIAGNOSTIC N/A 03/01/2020 EGD, UPPER GI ENDOSCOPY performed by David Dejesus MD at [facility] ENDOSCOPY Social History Tobacco Use [...] without issue Plan BRODY Miguel MD 01/26/2022 Senior Supplier Quality Engineer Pager [phone] Informed Consent: Anesthesia Screening documented in this encounter Plan of Treatment Upcoming Encounters Date Type Department Care Team (Late st Contact Info) Description 04/26/2024 8:30 AM EST [place] [address] Gavin Carrillo MD [facility] [place] [address] 06/05/2024 1:20 PM EST Office Visit Cardiology at [address] [phone] Milagros Hernandez MD [facility] [place] [address] Scheduled Procedures Name Priority Associated Diagnoses Date/Ti me EGD, UPPER GI ENDOSCOPY (WRV U 2.09) Peptic stricture of esophagus documented as of this encounter Visit Diagnoses Not on filedocumented in this encounter Care Teams Manager Hris Relationship Specialty Start Date End Date Ana Gillespie APRN [address] [place] [address] PCP - General Family Medicine 02/03/19 documented as of this encounter
--- OUTSIDE RECORDS SUMMARY | 2024-04-19 23:02 | XMS_ITS | Encounter Summary ---
[place] [address] Care Team Providers Care Practice Billing Associate Name Role Phone Ana Gillespie VAUGHN Primary Care Provider [phone] Reason for Visit * Reason Onset Date Comments Prior Authorization 10/21/2021 Encounter Details Date Type Department Care Team (Late st Contact Info) Description 10/21/2021 Telephone [place] [address] Libby Liu CCMA Prior Authorization Social History [...] Prior Authorization 4L Gastroenterology / [place] [address] Subscriber Insurance: [place] Medicaid Phone: Fax: Physician: David Dejesus NPI: Return Pharmacy: Phone: Fax: Medication Requested: Pantoprazole Strength:40mg Frequency: Take 1 Tablet by mouth twice daily Disp.: Refills: Currently taking: yes Diagnosis for this medication: Farrell's, GERD ICD-10 code: (K22.70) (K21.00) Prior medications trialed in this patient: Esomeprazole, Pantoprazole 1x daily, 20mg, Sucralfate Medication: Outcome/Adverse Reactions:Treatment Failure Decision: Approved Tracking number/Case number/Reference number: [id number] Effective date: Start: 10/21/2021 End: 10/21/2022 documented in this encounter Plan of Treatment Upcoming Encounters Date Type Department Care Team (Late st Contact Info) Description 04/26/2024 8:30 AM EST App[place] [phone] Gavin Carrillo MD [facility] [place] [address] 06/05/2024 1:20 PM EST Office Visit Cardiology at [address] [phone] Milagros Hernandez MD [facility] [place] [address] Scheduled Procedures Name Priority Associated Diagnoses Date/Ti me EGD, UPPER GI ENDOSCOPY (WRV U 2.09) Peptic stricture of esophagus documented as of this encounter Visit Diagnoses Not on filedocumented in this encounter Care Teams Practice Billing Associate Relationship Specialty Start Date End Date Ana Gillespie APRN [address] [place] [address] PCP - General Family Medicine 02/03/19 documented as of this encounter
--- OUTSIDE RECORDS SUMMARY | 2024-04-19 23:02 | XMS_ITS | Encounter Summary ---
Author Organization [place] [address] Care Team Providers Care Final Expense Agent Name Role Phone Ana Gillespie VAUGHN Primary Care Provider [phone] Encounter Details Date Type Department Care Team (Late st Contact Info) Description 09/10/2021 Telephone [place] [address] Chiquita James, RN Social History [...] 04/26/2024 8:30 AM [place] [address] Gavin Carrillo MD [facility] [place] [address] 06/05/2024 1:20 PM EST Office Visit Cardiology at [address] [address] Milagros Hernandez MD [facility] [place] [address] Scheduled Procedures Name Priority Associated Diagnoses Date/Ti me EGD, UPPER GI ENDOSCOPY (WRV U 2.09) Peptic stricture of esophagus documented as of this encounter Visit Diagnoses Not on filedocumented in this encounter Care Teams Final Expense Agent Relationship Specialty Start Date End Date Ana Gillespie APRN [address] [place] [address] PCP - General Family Medicine 02/03/19 documented as of this encounter
--- OUTSIDE RECORDS SUMMARY | 2024-04-19 23:02 | XMS_ITS | Encounter Summary ---
Author Organization [facility] Address [facility] [place] [address] Care Team Providers Care Medical Interpreter Name Role Phone Ana Gillespie VAUGHN Primary Care Provider [phone] Encounter Details Date Type Department Care Team (Latest Contact Info) Description 07/03/2022 7:08 AM EST - 07/03/2022 10:05 AM EST Hospital Encounter Gastroenterology at [facility] [place] [address] David Dejesus MD [facility] [place] [address] Discharge Disposition: Home Social History Tobacco Use [...] Care Everywhere. * EGD (Upper Endoscopy): Post-op (Croatian) documented in this encounter Medications at Time [...] meter kit. 1 each 0 12/14/2014 Insulin Marathon, Disposable, (BD INSULIN PEN NEEDLE UF MINI) 31 x 3/16 NeedleIndications:Di abetes mellitus type 2, uncontrolled 1 Device by [facility].(Non-Drug; Combo Route) route [...] for dosing. 15 mL 11 ??? Insulin Marathon, Disposable, (BD INSULIN PEN NEEDLE UF MINI) 31 x 3/16 Needle 1 Device by [facility].(Non-Drug; Combo Route) route [...] 04/26/2024 8:30 AM EST [place] [address] Gavin Carrillo MD [facility] [place] [address] 06/05/2024 1:20 PM EST Office Visit Cardiology at [address] [phone] Milagros Hernandez MD [facility] [place] [address] Scheduled Procedures Name Priority Associated Diagnoses Date/Ti me EGD, UPPER GI ENDOSCOPY (WRV U 2.09) Peptic stricture of esophagus documented as of this encounter Procedures Procedure Name Priority Date/Time Associated Diagnosis Comments SURGICAL PATHOLOGY REPORT Routine 07/03/2022 9:02 AM EST SPECIMEN TO PATHOLOGY Routine 07/03/2022 9:02 AM EST SPECIMEN TO PATHOLOGY Routine 07/03/2022 9:02 AM EST Upper Gi Endoscopy, Biopsy ([id number]) 07/03/2022 8:39 AM EST Farrell's esophagus without dysplasia POCT GLUCOSE Routine 07/03/2022 7:37 AM EST UPPER GI ENDOSCOPY Routine 07/03/2022 7: 26 AM EST documented in this encounter Results * Surgical Pathology Report (07/03/2022 9:02 AM EST) Final Diagnosis [id number] ? Location: 4T; [facility]; A The signing pathologist has (i) examined [...] Note). Note: Immunostains for p53, CD31 and [id number] were evaluated for final diagnosis. Electronically signed by: ?Chinmay Nguyen MD Verified: ??07/08/2022 16:29 ??Pathologist Performed at: ??-[facility] Dept. of Pathology, [place] [address] Railroad Mechanic: Vishal Gilliam MD, FCAP, ??CLIA Certificate: [id number] ADDITIONAL STUDIES Immunohistochemistry Studies: Formalin-fixed, paraffin-embedded tissue [...] note ? CD31 ? see note ? [id number] ? see note SPECIMEN(S) SUBMITTED A - [...] SPECIMEN PROCESSING ??pps 07/08/2022 4:29 PM EST [facility] GI Biopsy 07/03/2022 9:02 AM EST 07/03/2022 9:02 AM EST GI Biopsy 07/03/2022 9:02 AM EST 07/03/2022 9:02 AM EST David Dejesus MD PATHOLOGY/CYTOLOGY ORDERABLES [facility] [place] [address] [facility] [place] [address] * Specimen to Pathology (07/03/2022 9:02 AM EST) AP Specimen 07/03/2022 9:02 AM EST 07/03/2022 9:[address] [facility] - 07/03/2022 9:02 AM EST Specimen requisition ordered. ??Separate Pathology report to follow David Dejesus MD PATHOLOGY/CYTOLOGY ORDERABLES Performing Organization Address [facility]/ZIP Co de Phone Number [facility] [place] [address] * Specimen to Pathology (07/03/2022 9:02 AM EST) AP Specimen 07/03/2022 9:02 AM EST 07/03/2022 9:[address] [facility] - 07/03/2022 9:02 AM EST Specimen requisition ordered. ??Separate Pathology report to follow David Dejesus MD PATHOLOGY/CYTOLOGY ORDERABLES Performing Organization Address [facility] Co de Phone Number [facility] [place] [address] * POCT Glucose (07/03/2022 7:37 AM EST) Glucose, POC 139 65 - 199 mg/dL [facility] Comment: Supplemental ranges: <140 mg/dL before meals <180 mg/dL all other times of the day Blood 07/03/2022 7:37 AM EST 07/03/2022 7:37 AM EST David Dejesus MD POINT OF CARE TEST ORDERABLES Performing Organization Address City/[facility] [place] [address] * UPPER GI ENDOSCOPY (07/03/2022 7:26 AM EST) UPPER GI ENDOSCOPY [facility] Endoscopy Procedure Date: 07/03/2022 7:26 AM ? Patient Name: Jennifer Irving ? Date of : 1960 ? Age: 62 ? Order #: [id number] ? Instrument Name: [id number] ? Procedure: ? Upper GI endoscopy Indications: ? Dysphagia, Follow-up of Farrell's ? esophagus Providers: ? David Dejesus MD, Lucia Arroyo ? Tapan Agustin Referring : ?Ana Keith: ? Monitored Anesthesia [...] PROVATION 07/03/2022 7:26 AM EST Ana Gillespie VICE PRESIDENT OF CUSTOMER SERVICE GENERAL SURGICAL ORD ERABLES PROVATION documented in [...] CRNA) documented in this encounter Care Teams Medical Interpreter Relationship Specialty Start Date End Date Ana Gillespie APRN [address] [place] [address] PCP - General Family Medicine 02/03/19 documented as of this encounter
--- OUTSIDE RECORDS SUMMARY | 2024-04-19 23:02 | XMS_ITS | Encounter Summary ---
Author Organization [facility] Address [facility] [place] [address] Care Team Providers Care Barge Engineer Name Role Phone Ana Gillespie ASSISTANT CORPORATE CONTROLLER Primary Care Provider [phone] Encounter Details Date Type Department Care Team (Late st Contact Info) Description 10/27/2021 Orders Only Gastroenterology at [place] [phone] David Dejesus MD [facility] [place] [address] Gastroesophageal reflux disease with esophagitis without hemorrhage [...] 04/26/2024 8:30 AM EST [place] [address] Gavin Carrillo MD [facility] [place] [address] 06/05/2024 1:20 PM EST Office Visit Cardiology at [address] [phone] Milagros Hernandez MD [facility] [place] [address] Scheduled Procedures Name Priority Associated Diagnoses Date/Ti me EGD, UPPER GI ENDOSCOPY (WRV U 2.09) Peptic stricture of esophagus documented as of this encounter Visit Diagnoses Diagnosis Gastroesophageal reflux disease with esophagitis without hemorrhage documented in this encounter Care Teams Barge Engineer Relationship Specialty Start Date End Date Ana Gillespie APRN [address] [place] [address] PCP - General Family Medicine 02/03/19 documented as of this encounter
--- OUTSIDE RECORDS SUMMARY | 2024-04-19 23:02 | XMS_ITS | Encounter Summary ---
[facility] Organization [facility] Address [facility] [place] [address] Care Team Providers Care Washer Engineer Helper Name Role Phone Ana Gillespie AMBULATORY TECHNOLOGIST Primary Care Provider [phone] Encounter Details Date Type Department Care Team (Late Contact Info) Description 06/23/2022 Telephone [place] [address] Chiquita James, RN Social History [...] 04/26/2024 8:30 AM [place] [address] Gavin Carrillo MD [facility] [place] [address] 06/05/2024 1:20 PM EST Office Visit Cardiology at [address] [address] Milagros Hernandez MD [facility] [place] [address] Scheduled Procedures Name Priority Associated Diagnoses Date/Ti me EGD, UPPER GI ENDOSCOPY (WRV U 2.09) Peptic stricture of esophagus documented as of this encounter Visit Diagnoses Not on filedocumented in this encounter Care Teams Washer Engineer Helper Relationship Specialty Start Date End Date Ana Gillespie APRN [address] [place] [address] PCP - General Family Medicine 02/03/19 documented as of this encounter
--- OUTSIDE RECORDS SUMMARY | 2024-04-19 23:02 | XMS_ITS | Encounter Summary ---
[place] [address] Care Team Providers Care Director Validation Name Role Phone Ana Gillespie VAUGHN Primary Care Provider Encounter Details Date Type Department Care Team (Late st Contact Info) Description 05/28/2022 Telephone [place] [phone] Chiquita James, RN Social History Tobacco Use [...] 8:30 AM EST Appointment [place] [phone] Gavin Carrillo MD [facility] [place] [address] 06/05/2024 1:20 PM EST Office Visit Cardiology at [address] [address] Milagros Hernandez MD [facility] [place] [address] Scheduled Procedures Name Priority Associated Diagnoses Date/Ti me EGD, UPPER GI ENDOSCOPY (WRV U 2.09) Peptic stricture of esophagus documented as of this encounter Visit Diagnoses Not on filedocumented in this encounter Care Teams Director Validation Relationship Specialty Start Date End Date Ana Gillespie APRN [address] [place] [address] PCP - General Family Medicine 02/03/19 documented as of this encounter
--- OUTSIDE RECORDS SUMMARY | 2024-04-19 23:02 | XMS_ITS | Encounter Summary ---
Author Organization [facility] [address] Care Team Providers Care Director Of Food And Nutrition Name Role Phone Ana Gillespie APRN Primary Care Provider [phone] Encounter Details Date Type Department Care Team (Late st Contact Info) Description 09/23/2021 12:02 PM EDT Anesthesia [place] [address] Keyana Short MD [facility] [place] [address] Kyaw Yusuf CRNA [facility] [place] [address] Anesthesia Record Procedure Summary Procedure Name Responsible [...] 1131; median cubital vein (antecubital fossa), right; jpza-xll-uhpgiz catheter system; 20 gauge; Lilliana HWANG; tolerated [...] Summary Date: 09/23/21 Room / Location: [facility]O 2 / [facility] Anesthesia Start: 1202 Anesthesia Stop: 1224 Procedure: EGD WITH BIOPSY (WRVU 2.49) (N/A Trunk) Diagnosis: Gastroesophageal reflux disease with esophagitis without hemorrhage (esophagitis - please schedule in mid August) Surgeons: David Dejesus MD Responsible Provider: Keyana Short MD Anesthesia Type: MAC ASA Status: 3 All Anesthesia Providers: Anesthesiologist: Keyana Short MD TELEGRAPH OFFICE MANAGER: Kyaw Yusuf CRNA Vitals Value Taken Time BP 139/82 09/23/21 1310 Temp Pulse Resp 18 09/23/21 1310 SpO2 100 % 09/23/21 1315 Pain Level 0 09/23/21 1310 Vitals shown include unvalidated device data. Patient Location: PACU/[facility] Level of Consciousness: Awake and Alert [...] MD at [facility] ENDOSCOPY Social History Tobacco Use ??? Smoking [...] risks discussed with patient. Plan discussed with TELEGRAPH OFFICE MANAGER. Anesthesia Screening documented in this encounter Plan of Treatment Upcoming Encounters Date Type Department Care Team (Late st Contact Info) Description 04/26/2024 8:30 AM [place] [phone] Gavin Carrillo MD [facility] [address] [place] [address] 06/05/2024 1:20 PM EST Office Visit Cardiology at [address] [address] Milagros Hernandez MD [facility] [place] [address] Scheduled Procedures Name Priority Associated Diagnoses Date/Ti [...] mg documented in this encounter Care Teams Director Of Food And Nutrition Relationship Specialty Start Date End Date Ana Gillespie APRN [address] [place] [address] PCP - General Family Medicine 02/03/19 documented as of this encounter
--- OUTSIDE RECORDS SUMMARY | 2024-04-19 23:02 | XMS_ITS | Encounter Summary ---
Author Organization [facility] [place] [address] Care Team Providers Care Certified Prosthetist/Orthotist Name Role Phone Ana Gillespie VAUGHN Primary Care Provider [phone] Encounter Details Date Type Department Care Team (Late st Contact Info) Description 09/12/2021 Telephone [place] [address] Chiquita James, RN Social History [...] 04/26/2024 8:30 AM EST Appointment [place] [address] Gavin Carrillo MD [facility] [place] [address] 06/05/2024 1:20 PM EST Office Visit Cardiology at [address] [address] Milagros Hernandez MD [facility] [place] [address] Scheduled Procedures Name Priority Associated Diagnoses Date/Ti me EGD, UPPER GI ENDOSCOPY (WRV U 2.09) Peptic stricture of esophagus documented as of this encounter Visit Diagnoses Not on filedocumented in this encounter Care Teams Certified Prosthetist/Orthotist Relationship Specialty Start Date End Date Ana Gillespie APRN [address] [place] [address] PCP - General Family Medicine 02/03/19 documented as of this encounter
--- OUTSIDE RECORDS SUMMARY | 2024-04-19 23:02 | XMS_ITS | Encounter Summary ---
Author Organization [facility] [place] [address] Care Team Providers Care Mergers And Acquisitions Associate Name Role Phone Ana Gillespie VAUGHN Primary Care Provider [phone] Encounter Details Date Type Department Care Team (Late st Contact Info) Description 01/28/2022 Telephone Gastroenterology at [facility] [place] [address] Ting Patton Social History Tobacco Use Types [...] - 01/28/2022 12:14 PM EDT Jennifer Irving [id number] Diagnosis/Indication: Schedule EGD in two years Please [...] your procedure. 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 *Please Verify the [...] 04/26/2024 8:30 AM [place] [address] Gavin Carrillo MD [facility] [address] [place] [address] 06/05/2024 1:20 PM EST Office Visit Cardiology at [address] [phone] Milagros Hernandez MD [facility] [place] [address] Scheduled Procedures Name Priority Associated Diagnoses Date/Ti me EGD, UPPER GI ENDOSCOPY (WRV U 2.09) Peptic stricture of esophagus documented as of this encounter Visit Diagnoses Not on filedocumented in this encounter Care Teams Mergers And Acquisitions Associate Relationship Specialty Start Date End Date Ana Gillespie APRN [address] [place] [address] PCP - General Family Medicine 02/03/19 documented as of this encounter
--- OUTSIDE RECORDS SUMMARY | 2024-04-19 23:02 | XMS_ITS | Encounter Summary ---
Author Organization [facility] Address [facility] [place] [address] Care Team Providers Care Street Worker Name Role Phone Ana Gillespie VAUGHN Primary Care Provider [phone] Encounter Details Date Type Department Care Team (Late st Contact Info) Description 09/23/2021 12:30 PM EDT - 09/23/2021 1:00 PM EDT [place] [phone] David Dejesus MD [facility] [place] [address] EGD WITH BIOPSY (WRVU 2.39) Social History [...] the day after the procedure, use an iimc-syj-wsxreny spray to numb your throat. Sucking on [...] occurs, please contact your Doctor. Please call [phone] before 8pm Mon-Fri with problems, questions or concerns. If you call after 8pm or on weekends, call the Hospital at [phone] and ask to speak to the Wire Wheeler rigging and controls aircraft mechanic and the facing machine operator will contact that person for [...] Where can you learn more? [facility] View your After Visit Summary and more online at [email or web address] If you would like to provide feedback about your hospital experience, please call the Office of Patient and Family Relations at . If you have received this After Visit Summary in error, please immediately return it in person to the department, or notify the [facility] Privacy Office by calling toll free at between the hours of 8AM and 5PM to arrange for our retrieval of the documents at no cost to you. Content Version: 12.2 ?? [id number] [employer]. Care instructions adapted under license by [facility]. If you have questions about a medical condition or this instruction, always ask your healthcare professional. [employer] disclaims any warranty or liability for your [...] meter kit. 1 each 0 12/14/2014 Insulin [place], Disposable, (BD INSULIN PEN NEEDLE UF MINI) [...] 2 times daily. ??? Blood Sugar Diagnostic ([employer]TOUCH ULTRA TEST) Strip 1 each by Other [...] for dosing. 15 mL 11 ??? Insulin [place], Disposable, (BD INSULIN PEN NEEDLE UF MINI) 31 x 3/16 Needle 1 Device by [facility] – [...] daily. 180 capsule 3 ??? Blood-Glucose Meter ([employer]TOUCH ULTRA2) Kit by Other route. 1 = [...] 04/26/2024 8:30 AM [place] [address] Gavin Carrillo MD [facility] [place] [address] 06/05/2024 1:20 PM EST Office Visit Cardiology at [address] [address] Milagros Hernandez MD [facility] [place] [address] Scheduled Procedures Name Priority Associated Diagnoses Date/Ti me EGD, UPPER GI ENDOSCOPY (WRV U 2.09) Peptic stricture of esophagus documented as of this encounter Procedures Procedure Name Priority Date/Time Associated Diagnosis Comments SURGICAL PATHOLOGY REPORT Routine 09/23/2021 12:24 PM EDT SPECIMEN TO PATHOLOGY Routine 09/23/2021 12:24 PM EDT SPECIMEN TO PATHOLOGY Routine 09/23/2021 12:24 PM EDT Upper Gi Endoscopy, Biopsy ([id number]) 09/23/2021 12:02 PM EDT Gastroesophageal reflux disease with esophagitis without hemorrhage UPPER GI ENDOSCOPY Routine 09/23/2021 11 :52 AM EDT documented in this encounter Results * Surgical Pathology Report (09/23/2021 12:24 PM EDT) Final Diagnosis ? Location: 4T; 08; A The signing [...] MD Verified: ??09/26/2021 19:44 ??Pathologist Performed at: ??-[facility] [place], [place], [place] SPECIMEN(S) SUBMITTED A - Distal esophagus [...] [facility] GI Biopsy 09/23/2021 12:2 4 PM EDT 09/23/2021 12:24 PM EDT GI Biopsy 09/23/2021 12:2 4 PM EDT 09/23/2021 12:24 PM EDT David Dejesus MD PATHOLOGY/CYTOLOGY ORDERABLES [facility] [place] [address] * Specimen to Pathology (09/23/2021 12:24 PM EDT) AP Specimen 09/23/2021 12:2 4 PM EDT 09/23/2021 12:24 PM EDT Narrative [facility] - 09/23/2021 12:24 PM EDT Specimen requisition ordered. ??Separate Pathology report to follow David Dejesus MD PATHOLOGY/CYTOLOGY ORDERABLES [facility] [place] [address] * Specimen to Pathology (09/23/2021 12:24 PM EDT) AP Specimen 09/23/2021 12:2 4 PM EDT 09/23/2021 12:24 PM EDT Narrative [facility] - 09/23/2021 12:24 PM EDT Specimen requisition ordered. ??Separate Pathology report to follow David Dejesus MD PATHOLOGY/CYTOLOGY ORDERABLES Performing Organization Address [facility]/State/ZIP Co de Phone Number [facility] [place] [address] * UPPER GI ENDOSCOPY (09/23/2021 11:52 AM EDT) UPPER GI ENDOSCOPY [facility] Endoscopy Procedure Date: 09/23/2021 11:52 AM ? Patient Name: Jennifer Irving ? N: [id number] ? Date of : 1960 ? Age: 61 ? Order #: [id number] ? Instrument Name: [id number] ? Procedure: ? Upper GI endoscopy Indications: ? Heartburn Providers: ? David Dejesus MD, Neej J. ? [address], ? Theodora Farrell, Finance Associate Referring : ?Ana Keith: ? Monitored Anesthesia [...] 09/23/2021 11:5 2 AM EDT Ana Gillespie ANNUAL GREENHOUSE MANAGER GENERAL SURGICAL ORD ERABLES [employer] documented [...] RN) documented in this encounter Care Teams Street Worker Relationship Specialty Start Date End Date Ana Gillespie APRN [address] [place] [address] PCP - General Family Medicine 02/03/19 documented as of this encounter
--- OUTSIDE RECORDS SUMMARY | 2024-04-19 23:02 | XMS_ITS | Encounter Summary ---
[place] [address] Care Team Providers Care Welder Tool And Die Name Role Phone Ana Gillespie APRN Primary Care Provider [phone] Encounter Details Date Type Department Care Team (Late st Contact Info) Description 12/26/2021 Telephone [place] [address] Rober Tobin Social History Tobacco [...] Return calls can be handled by: Endoscopy Professor Of Musicology [phone] documented in this encounter Plan of Treatment Upcoming Encounters Date Type Department Care Team (Late st Contact Info) Description 04/26/2024 8:30 AM EST [place] [address] Gavin Carrillo MD [facility] INTERVENTION[place] [address] 06/05/2024 1:20 PM EST Office Visit Cardiology at [address] [address] Milagros Hernandez MD [facility] [place] [address] Scheduled Procedures Name Priority Associated Diagnoses Date/Ti me EGD, UPPER GI ENDOSCOPY (WRV U 2.09) Peptic stricture of esophagus documented as of this encounter Visit Diagnoses Not on filedocumented in this encounter Care Teams Welder Tool And Die Relationship Specialty Start Date End Date Ana Gillespie APRN [address] [place] [address] PCP - General Family Medicine 02/03/19 documented as of this encounter
--- OUTSIDE RECORDS SUMMARY | 2024-04-19 23:02 | XMS_ITS | Encounter Summary ---
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 She needs this to be [facility] for medical issue. Forwarded for review documented in this encounter Plan of Treatment Upcoming Encounters Date Type Department Care Team (Late st Contact Info) Description 04/26/2024 8:30 AM EST [place] [address] [facility] [place] [address] 06/05/2024 1:20 PM EST Office Visit Cardiology at [address] [phone] Milagros Hernandez MD [facility] [place] [address] Scheduled Procedures Name Priority Associated Diagnoses Date/Ti me EGD, UPPER GI ENDOSCOPY (WRV U 2.09) Peptic stricture of esophagus documented as of this encounter Visit Diagnoses Not on filedocumented in this encounter Care Teams Medical Laboratory Technologist Relationship Specialty Start Date End Date Ana Gillespie APRN [address] [place] [address] PCP - General Family Medicine 02/03/19 documented as of this encounter
--- OUTSIDE RECORDS SUMMARY | 2024-04-19 23:02 | XMS_ITS | Encounter Summary ---
Author Organization [facility] [place] [address] Care Team Providers Care Clear Coat Sprayer Name Role Phone Ana Gillespie APRN Primary Care Provider [phone] Encounter Details Date Type Department Care Team (Late st Contact Info) Description 05/25/2022 Telephone Gastroenterology at [facility] [place] [address] Jaymie Bass Social History Tobacco Use Types [...] - 05/25/2022 12:22 PM EST Jennifer Irving [id number] EGD with Anesthesia within 1 week per [...] your food service driver for the procedure? yes *Please Verify [...] 04/26/2024 8:30 AM EST Appointment [place] [address] Gavin Carrillo MD [facility] [place] [address] 06/05/2024 1:20 PM EST Office Visit Cardiology at [address] [phone] Milagros Hernandez MD [facility] [place] [address] Scheduled Procedures Name Priority Associated Diagnoses Date/Ti me EGD, UPPER GI ENDOSCOPY (WRV U 2.09) Peptic stricture of esophagus documented as of this encounter Visit Diagnoses Not on filedocumented in this encounter Care Teams Clear Coat Sprayer Relationship Specialty Start Date End Date Ana Gillespie APRN [address] [place] [address] PCP - General Family Medicine 02/03/19 documented as of this encounter
--- OUTSIDE RECORDS SUMMARY | 2024-04-19 23:02 | XMS_ITS | Encounter Summary ---
Author Organization [facility] Address [facility] [place] [address] Care Team Providers Care Commercial Escrow Assistant Name Role Phone Ana Gillespie VAUGHN Primary Care Provider [phone] Encounter Details Date Type Department Care Team (Latest Contact Info) Description 05/21/2022 2:30 PM EST TH Visit (TeleHealth) [place] [address] Alfonso Rose MD [facility] [place] [address] Neuroleptic-induced parkinsonism Social History Tobacco Use Types [...] us on an as-needed basis. This was [id number] call with greater than 10 minutes spent in counseling discussion regarding the above assessment and plan, with additional 10 minutes in review of the medical record. documented in this encounter Plan of Treatment Upcoming Encounters Date Type Department Care Team (Late st Contact Info) Description 04/26/2024 8:30 AM EST App[place] [phone] Gavin Carrillo MD [facility] [place] [address] 06/05/2024 1:20 PM EST Office Visit Cardiology at [address] [phone] Milagros Hernandez MD [facility] [place] [place] [address] Scheduled Procedures Name Priority Associated Diagnoses Date/Ti me EGD, UPPER GI ENDOSCOPY (WRV U 2.09) Peptic stricture of esophagus documented as of this encounter Visit Diagnoses Diagnosis 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
--- OUTSIDE RECORDS SUMMARY | 2024-04-19 23:02 | XMS_ITS | Encounter Summary ---
Author Organization [facility] Address [facility] [place] [address] Care Team Providers Care Barrel Painter Name Role Phone Ana Gillespie VAUGHN Primary Care Provider [phone] Reason for Visit * Consultation (Routine) - Closed Specialty Diagnoses / Procedures Referred By Esperanza rodríguez Referred To Contact Neurology Diagnoses Primary parkinsonism David Dejesus MD [facility] [place] [address] [facility] [address] [place] [address] Referral ID Status Reason Start Date Expiration Date V isits Requested Visits Authorized [id number] Closed Consult, Test & Treat 09/23/2021 09/23/2022 1 1 Encounter Details Date Type Department Care Team (Late st Contact Info) Description 02/12/2022 11:00 AM EDT Office [place] [address] Alfonso Rose MD [facility] [place] [address] Neuroleptic-induced parkinsonism Social History Tobacco [...] Jennifer Irving Provider: Alfonso Rose MD PhD ([id number]) Vis: February 12, 2022 Requesting Physician: David [...] BX performed by David Dejesus MD at [facility] ENDOSCOPY ??? PRO COLONOSCOPY, DIAGNOSTIC N/A 03/01/2020 COLONOSCOPY, DIAGNOSTIC performed by David Dejesus MD at [facility] ENDOSCOPY ??? PRO UPPER GI ENDOSCOPY, BIOPSY N/A 04/03/2014 UPPER GASTROINTESTINAL ENDOSCOPY,WITH BIOPSY SINGLE OR MULTIPLE performed by David Dejesus MDat [facility] ENDOSCOPY ??? PRO UPPER GI ENDOSCOPY, BIOPSY N/A 03/20/2016 EGD WITH BIOPSY performed by David Dejesus MD at [facility] ENDOSCOPY ??? PRO UPPER GI ENDOSCOPY, BIOPSY N/A 11/22/2018 EGD WITH BIOPSY (WRVU 2.49) performed by David Dejesus MD at [facility] ENDOSCOPY ??? PRO UPPER GI ENDOSCOPY, BIOPSY N/A 03/01/2020 UPPER GASTROINTESTINAL ENDOSCOPY,WITH BIOPSY SINGLE OR MULTIPLE (WRVU 2.49) performed by David Dejesus MD at [facility] ENDOSCOPY ??? PRO UPPER GI ENDOSCOPY, BIOPSY N/A 09/23/2021 EGD WITH BIOPSY (WRVU 2.49) performed by David Dejesus MD at [facility] ENDOSCOPY ??? PRO UPPER GI ENDOSCOPY, DIAGNOSTIC N/A 04/03/2014 EGD, UPPER GI ENDOSCOPY performed by David Dejesus MD at [facility] ENDOSCOPY ??? PRO UPPER GI ENDOSCOPY, DIAGNOSTIC N/A 03/01/2020 EGD, UPPER GI ENDOSCOPY performed by David Dejesus MD at [facility] ENDOSCOPY Social History Social History Socioeconomic [...] for dosing. 15 mL 11 ??? Insulin [place], Disposable, (BD INSULIN PEN NEEDLE UF MINI) [...] Coordination: ?? Finger to nose: intact ?? Xpek-juap-sjzy: intact ?? Tandem: intact ?? Gait: ?? [...] encounter. Alfonso Rose MD PhD [facility] Neurology documented in this encounter [...] 04/26/2024 8:30 AM EST Appointment Radiology at [address] Gavin Carrillo MD [facility] [place] [address] 06/05/2024 1:20 PM EST Office Visit Cardiology at [place] [phone] Milagros Hernandez MD [facility] [place] [address] Scheduled Procedures Name Priority Associated Diagnoses Date/Ti me EGD, UPPER GI ENDOSCOPY (WRV U 2.09) Peptic stricture of esophagus Scheduled Referrals Name Type Priority Associated Diagnoses Orde r Schedule Referral to Neurology Outpatient Referral Routine Primary Parkinsonism Ordered: 09/23/2021 documented as of this encounter Visit Diagnoses Diagnosis 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
--- OUTSIDE RECORDS SUMMARY | 2024-04-19 23:02 | XMS_ITS | Encounter Summary ---
Author Organization [facility] Address [facility] [place] [address] Care Team Providers Care Chairman And Ceo Name Role Phone Ana Gillespie GERIATRIC PSYCHIATRIST Primary Care Provider [phone] Encounter Details Date Type Department Care Team (Late st Contact Info) Description 09/29/2021 Telephone [place] [phone] David Dejesus MD [facility] [place] [address] Social History Tobacco Use Types Packs/Day Years [...] 04/26/2024 8:30 AM [place] [phone] Gavin Carrillo MD [facility] INTERVENT[place] [address] 06/05/2024 1:20 PM EST Office Visit Cardiology at [address] [address] Milagros Hernandez MD [facility] [place] [address] Scheduled Procedures Name Priority Associated Diagnoses Date/Ti me EGD, UPPER GI ENDOSCOPY (WRV U 2.09) Peptic stricture of esophagus documented as of this encounter Visit Diagnoses Not on filedocumented in this encounter Care Teams Chairman And Ceo Relationship Specialty Start Date End Date Ana Gillespie APRN [address] [place] [address] PCP - General Family Medicine 02/03/19 documented as of this encounter
--- OUTSIDE RECORDS SUMMARY | 2024-04-19 23:02 | XMS_ITS | Encounter Summary ---
Author Organization [facility] [address] Care Team Providers Care Tilesetter Name Role Phone Ana Gillespie VAUGHN Primary Care Provider [phone] Encounter Details Date Type Department Care Team (Late st Contact Info) Description 11/24/2021 Telephone [place] [address] Chiquita James, RN Social History [...] 04/26/2024 8:30 AM [place] [address] Gavin Carrillo MD [facility] [place] [address] 06/05/2024 1:20 PM EST Office Visit Cardiology at [address] [address] Milagros Hernandez MD [facility] [place] [address] Scheduled Procedures Name Priority Associated Diagnoses Date/Ti me EGD, UPPER GI ENDOSCOPY (WRV U 2.09) Peptic stricture of esophagus documented as of this encounter Visit Diagnoses Not on filedocumented in this encounter Care Teams Tilesetter Relationship Specialty Start Date End Date Ana Gillespie APRN [address] [place] [address] PCP - General Family Medicine 02/03/19 documented as of this encounter
--- OUTSIDE RECORDS SUMMARY | 2024-04-19 23:02 | XMS_ITS | Encounter Summary ---
Author Organization [facility] Address [facility] [place] [address] Care Team Providers Care Health Care Assistant Name Role Phone Ana Gillespie APRN Primary Care Provider Encounter Details Date Type Department Care Team (Late st Contact Info) Description 06/23/2022 Telephone [place] [address] Ilene Sharma RN Social History [...] 04/26/2024 8:30 AM EST Appointment [place] [address] Gavin Carrillo MD [facility] [place] [address] 06/05/2024 1:20 PM EST Office Visit Cardiology at [address] [address] Milagros Hernandez MD [facility] [place] [address] Scheduled Procedures Name Priority Associated Diagnoses Date/Ti [...] documented as of this encounter Care Teams Health Care Assistant Relationship Specialty Start Date End Date Ana Gillespie APRN [address] [place] [address] PCP - General Family Medicine 02/03/19 documented as of this encounter
--- OUTSIDE RECORDS SUMMARY | 2024-04-19 23:02 | XMS_ITS | Encounter Summary ---
Author Organization [facility] [place] [address] Care Team Providers Care Retail Event Assistant Name Role Phone Ana Gillespie VAUGHN Primary Care Provider [phone] Encounter Details Date Type Department Care Team (Late st Contact Info) Description 06/23/2022 Telephone [place] [phone] Jessica Beckman Social History Tobacco Use Types [...] 04/26/2024 8:30 AM [place] [phone] Gavin Carrillo MD [facility] [place] [address] 06/05/2024 1:20 PM EST Office Visit Cardiology at [address] [address] Milagros Hernandez MD [facility] [place] [address] Scheduled Procedures Name Priority Associated Diagnoses Date/Ti me EGD, UPPER GI ENDOSCOPY (WRV U 2.09) Peptic stricture of esophagus documented as of this encounter Visit Diagnoses Not on filedocumented in this encounter Care Teams Retail Event Assistant Relationship Specialty Start Date End Date Ana Gillespie APRN [address] [place] [address] PCP - General Family Medicine 02/03/19 documented as of this encounter
--- OUTSIDE RECORDS SUMMARY | 2024-04-19 23:02 | XMS_ITS | Encounter Summary ---
Author Organization [facility] Address [facility] [place] [address] Care Team Providers Care Javascript Application Developer Name Role Phone Ana Gillespie VAUGHN Primary Care Provider [phone] Reason for Referral * Consultation (Routine) - Closed Specialty Diagnoses / Procedures Referred By Esperanza rodríguez Referred To Contact Neurology Diagnoses Primary parkinsonism David Dejesus MD [facility] [place] [address] [facility] [address] [place] [address] Referral ID Status Reason Start Date Expiration Date V isits Requested Visits Authorized [id number] Closed Consult, Test & Treat 09/23/2021 09/23/2022 1 1 Encounter Details Date Type Department Care Team (Late st Contact Info) Description 09/23/2021 Orders Only [place] [phone] David Dejesus MD [facility] [place] [address] Primary parkinsonism Social History Tobacco Use Types [...] 04/26/2024 8:30 AM EST Appointment [place] [phone] Gavin Carrillo MD [facility] INTER[place] [address] 06/05/2024 1:20 PM EST Office Visit Cardiology at [address] [phone] Milagros Hernandez MD [facility] [place] [address] Scheduled Procedures Name Priority Associated Diagnoses Date/Ti me EGD, UPPER GI ENDOSCOPY (WRV U 2.09) Peptic stricture of esophagus Scheduled Referrals Name Type Priority Associated Diagnoses Orde r Schedule Referral to Neurology Outpatient Referral Routine Primary Parkinsonism Ordered: 09/23/2021 documented as of this encounter Visit Diagnoses Diagnosis Primary parkinsonism Paralysis agitans documented in this encounter Care Teams Javascript Application Developer Relationship Specialty Start Date End Date Ana Gillespie APRN [address] [place] [address] PCP - General Family Medicine 02/03/19 documented as of this encounter
--- OUTSIDE RECORDS SUMMARY | 2024-04-19 23:02 | XMS_ITS | Encounter Summary ---
Author Organization [facility] [place] [address] Care Team Providers Care Director Operating Room Name Role Phone Ana Gillespie APRN Primary Care Provider [phone] Encounter Details Date Type Department Care Team (Late st Contact Info) Description 05/25/2022 Orders [place] [phone] David Dejesus MD [facility] [place] [address] Farrell's esophagus without dysplasia Social History Tobacco [...] 04/26/2024 8:30 AM [place] [phone] Gavin Carrillo MD [facility] [place] [address] 06/05/2024 1:20 PM EST Office Visit Cardiology at [address] [phone] Milagros Hernandez MD [facility] [place] [address] Scheduled Procedures Name Priority Associated Diagnoses Date/Ti me EGD, UPPER GI ENDOSCOPY (WRV U 2.09) Peptic stricture of esophagus documented as of this encounter Visit Diagnoses Diagnosis Farrell's esophagus without dysplasia Farrell's esophagus documented in this encounter Care Teams Director Operating Room Relationship Specialty Start Date End Date Ana Gillespie APRN [address] [place] [address] PCP - General Family Medicine 02/03/19 documented as of this encounter
--- OUTSIDE RECORDS SUMMARY | 2024-04-19 23:02 | XMS_ITS | Encounter Summary ---
Author Organization [facility] [place] [address] Care Team Providers Care Manager Facility Name Role Phone Ana Gillespie VAUGHN Primary Care Provider [phone] Encounter Details Date Type Department Care Team (Late st Contact Info) Description 10/29/2021 Telephone [place] [phone] Juice Maxwell RN Social History Tobacco Use [...] 04/26/2024 8:30 AM [place] [phone] Gavin Carrillo MD [facility] [place] [address] 06/05/2024 1:20 PM EST Office Visit Cardiology at [address] [address] Milagros Hernandez MD [facility] [place] [address] Scheduled Procedures Name Priority Associated Diagnoses Date/Ti me EGD, UPPER GI ENDOSCOPY (WRV U 2.09) Peptic stricture of esophagus documented as of this encounter Visit Diagnoses Not on filedocumented in this encounter Care Teams Manager Facility Relationship Specialty Start Date End Date Ana Gillespie APRN [address] [place] [address] PCP - General Family Medicine 02/03/19 documented as of this encounter
--- OUTSIDE RECORDS SUMMARY | 2024-04-19 23:02 | XMS_ITS | Encounter Summary ---
Author Organization [facility] Address [facility] [address] Care Team Providers Care Polisher Hand Name Role Phone Ana Gillespie VAUGHN Primary Care Provider [phone] Encounter Details Date Type Department Care Team (Latest Contact Info) Description 09/23/2021 11:01 AM EDT - 09/23/2021 1:32 PM EDT Hospital Encounter [place] [address] David Dejesus MD [facility] [place] [address] Discharge Disposition: Home Social History Tobacco Use [...] the day after the procedure, use an jvfx-kbt-rlcqwzg spray to numb your throat. Sucking on [...] occurs, please contact your Doctor. Please call [phone] before 8pm Mon-Fri with problems, questions or concerns. If you call after 8pm or on weekends, call the Hospital at [phone] and ask to speak to the Mother Helper concrete stone finishing supervisor and the lung gun operator will contact [...] any problems. Where can you learn more? [facility] View your After Visit Summary and more online at [email or web address] If you would like to provide feedback about your hospital experience, please call the Office of Patient and Family Relations at . If you have received this After Visit Summary in error, please immediately return it in person to the department, or notify the [facility] Privacy Office by calling toll free at between the hours of 8AM and 5PM to arrange for our retrieval of the documents at no cost to you. Content Version: 12.2 ?? [id number] [employer]. Care instructions adapted under license by [facility]. If you have questions about a medical condition or this instruction, always ask your healthcare professional. [employer] disclaims any warranty or liability for [...] meter kit. 1 each 0 12/14/2014 Insulin [place], Disposable, (BD INSULIN PEN NEEDLE UF MINI) [...] 2 times daily. ??? Blood Sugar Diagnostic (PlacedUCH ULTRA TEST) Strip 1 each by Other [...] for dosing. 15 mL 11 ??? Insulin [place], Disposable, (BD INSULIN PEN NEEDLE UF MINI) 31 x 3/16 Needle 1 Device by Post Acute Medical Rehabilitation [...] 04/26/2024 8:30 AM EST Appointment [place] [address] Gavin Carrillo MD [facility] [place] [address] 06/05/2024 1:20 PM EST Office Visit Cardiology at [address] [address] Milagros Hernandez MD [facility] [place] [address] (work) Scheduled Procedures Name Priority Associated Diagnoses Date/Ti me EGD, UPPER GI ENDOSCOPY (WRV U 2.09) Peptic stricture of esophagus documented as of this encounter Procedures Procedure Name Priority Date/Time Associated Diagnosis Comments SURGICAL PATHOLOGY REPORT Routine 09/23/2021 12:24 PM EDT SPECIMEN TO PATHOLOGY Routine 09/23/2021 12:24 PM EDT SPECIMEN TO PATHOLOGY Routine 09/23/2021 12:24 PM EDT Upper Gi Endoscopy, Biopsy (08508) 09/23/2021 12:02 PM EDT Gastroesophageal reflux disease with esophagitis without hemorrhage UPPER GI ENDOSCOPY Routine 09/23/2021 11 :52 AM EDT documented in this encounter Results * Surgical Pathology Report (09/23/2021 12:24 PM EDT) Final Diagnosis ? Location: 4T; EA08; A The signing [...] MD Verified: ??09/26/2021 19:44 ??Pathologist Performed at: ??-[facility] Dept. of Pathology, [place], [place] SPECIMEN(S) SUBMITTED A - Distal esophagus [...] labeled B1-B2. ??shb 09/26/2021 7:[address] [facility] GI Biopsy 09/23/2021 12:2 4 PM EDT 09/23/2021 12:24 PM EDT GI Biopsy 09/23/2021 12:2 4 PM EDT 09/23/2021 12:24 PM EDT David Dejesus MD PATHOLOGY/CYTOLOGY ORDERABLES [facility] [place] [address] * Specimen to Pathology (09/23/2021 12:24 PM EDT) AP Specimen 09/23/2021 12:2 4 PM EDT 09/23/2021 12:[address] [facility] - 09/23/2021 12:24 PM EDT Specimen requisition ordered. ??Separate Pathology report to follow David Dejesus MD PATHOLOGY/CYTOLOGY ORDERABLES [facility] [place] [address] * Specimen to Pathology (09/23/2021 12:24 PM EDT) AP Specimen 09/23/2021 12:2 4 PM EDT 09/23/2021 12:[address] [facility] - 09/23/2021 12:24 PM EDT Specimen requisition ordered. ??Separate Pathology report to follow David Dejesus MD PATHOLOGY/CYTOLOGY ORDERABLES Performing Organization Address [facility]/ZIP Co de Phone Number [facility] [place] [address] * UPPER GI ENDOSCOPY (09/23/2021 11:52 AM EDT) UPPER GI ENDOSCOPY [facility] Endoscopy Procedure Date: 09/23/2021 11:52 AM ? Patient Name: Jennifer Irving ? N: [id number] ? Date of : 1960 ? Age: 61 ? Order #: [id number] ? Instrument Name: [id number] ? Procedure: ? Upper GI endoscopy Indications: ? Heartburn Providers: ? David Dejesus MD, Neej J. ? [address], ? Theodora Farrell, Pit Hand Referring : ?Ana Keith: ? Monitored Anesthesia [...] 09/23/2021 11:5 2 AM EDT Ana Gillespie ADMINISTRATIVE ASSISTANT RECEPTIONIST GENERAL SURGICAL ORD ERABLES [employer] documented in [...] RN) documented in this encounter Care Teams Polisher Hand Relationship Specialty Start Date End Date Ana Gillespie APRN [address] [place] [address] PCP - General Family Medicine 02/03/19 documented as of this encounter
--- OUTSIDE RECORDS SUMMARY | 2024-04-19 23:02 | XMS_ITS | Encounter Summary ---
Author Organization [facility] Address [facility] [place] [address] Care Team Providers Care Dry Mixer Name Role Phone Ana Gillespie VAUGHN Primary Care Provider [phone] Encounter Details Date Type Department Care Team (Latest Contact Info) Description 03/31/2022 8:43 AM EST - 03/31/2022 11:10 AM EST Hospital Encounter Gastroenterology at [facility] [place] [address] David Dejesus MD [facility] [place] [address] Discharge Disposition: Home Social History Tobacco Use [...] the day after the procedure, use an uoch-ozs-lgcvdle spray to numb your throat. Sucking on [...] occurs, please contact your Doctor. Please call [phone] before 8pm Mon-Fri with problems, questions or concerns. If you call after 8pm or on weekends, call the Hospital at [phone] and ask to speak to the Public Policy Coordinator sap pp consultant and the electric truck crane operator will contact that person for you. When should you call for help? Call [phone] anytime you think you may need emergency [...] any problems. Where can you learn more? [facility] View your After Visit Summary and more online at [email or web address] If you would like to provide [...] cost to you. Content Version: 12.2 ?? [id number] [employer]. Care instructions adapted under license by [facility]. If you have questions about a medical condition or this instruction, always ask your healthcare professional. [employer] disclaims any warranty or liability for your [...] meter kit. 1 each 0 12/14/2014 Insulin [place], Disposable, (BD INSULIN PEN NEEDLE UF MINI) [...] 04/26/2024 8:30 AM EST [place] [address] Gavin Carrillo MD [facility] [place] [address] 06/05/2024 1:20 PM EST Office Visit Cardiology at [address] [address] Milagros Hernandez MD [facility] [place] [address] Scheduled Procedures Name Priority Associated Diagnoses Date/Ti [...] 10:21 AM EST Endoscopic Us Exam, Esoph ([id number]) 03/31/2022 9:59 AM EST Schedule EGD in two years Upper Gi Endoscopy, Biopsy ([id number]) 03/31/2022 9:59 AM EST Schedule EGD in two years UPPER GI ENDOSCOPY Routine 03/31/2022 9: 56 AM EST POCT GLUCOSE Routine 03/31/2022 9:18 AM EST documented in this encounter Results * Specimen to Pathology (03/31/2022 10:36 AM EST) AP Specimen 03/31/2022 10:3 6 AM EST 03/31/2022 10:36 AM EST Narrative [facility] - 03/31/2022 10:36 AM EST Specimen requisition ordered. ??Separate Pathology report to follow David Dejesus MD PATHOLOGY/CYTOLOGY ORDERABLES [facility] [place] [address] * Specimen to Pathology (03/31/2022 10:36 AM EST) AP Specimen 03/31/2022 10:3 6 AM EST 03/31/2022 10:36 AM EST Narrative [facility] - 03/31/2022 10:36 AM EST Specimen requisition ordered. ??Separate Pathology report to follow David Dejesus MD PATHOLOGY/CYTOLOGY ORDERABLES Performing Organization Address [facility] [place] [address] * Specimen to Pathology (03/31/2022 10:36 AM EST) AP Specimen 03/31/2022 10:3 6 AM EST 03/31/2022 10:36 AM EST Narrative [facility] - 03/31/2022 10:36 AM EST Specimen requisition ordered. ??Separate Pathology report to follow David Dejesus MD PATHOLOGY/CYTOLOGY ORDERABLES Performing Organization Address [facility] Co de Phone Number [facility] [place] [place] [address] * Specimen to Pathology (03/31/2022 10:36 AM EST) AP Specimen 03/31/2022 10:3 6 AM EST 03/31/2022 10:36 AM EST Narrative [facility] - 03/31/2022 10:36 AM EST Specimen requisition ordered. ??Separate Pathology report to follow David Dejesus MD PATHOLOGY/CYTOLOGY ORDERABLES Performing Organization Address [facility] Co de Phone Number [facility] [place] [place] [address] * Specimen to Pathology (03/31/2022 10:36 AM EST) AP Specimen 03/31/2022 10:3 6 AM EST 03/31/2022 10:36 AM EST Narrative [facility] - 03/31/2022 10:36 AM EST Specimen requisition ordered. ??Separate Pathology report to follow David Dejesus MD PATHOLOGY/CYTOLOGY ORDERABLES Performing Organization Address [facility] [place] [address] * Specimen to Pathology (03/31/2022 10:36 AM EST) AP Specimen 03/31/2022 10:3 6 AM EST 03/31/2022 10:36 AM EST Narrative [facility] - 03/31/2022 10:36 AM EST Specimen requisition ordered. ??Separate Pathology report to follow David Dejesus MD PATHOLOGY/CYTOLOGY ORDERABLES Performing Organization Address [facility] de Phone Number [place] [phone] * Specimen to Pathology (03/31/2022 10:36 AM EST) AP Specimen 03/31/2022 10:3 6 AM EST 03/31/2022 10:36 AM EST Narrative [facility] - 03/31/2022 10:36 AM EST Specimen requisition ordered. ??Separate Pathology report to follow David Dejesus MD PATHOLOGY/CYTOLOGY ORDERABLES Performing Organization Address [facility] Phone Number [place] [phone] * Surgical Pathology Report (03/31/2022 10:21 AM EST) Final Diagnosis [id number] ? Location: 4T; EA08; A The signing [...] Verified: ??04/09/2022 9:14 ?? Pathologist Performed at: ??-[facility] Dept. of Pathology, [place] [address] Leadership Program Internship: Vishal Gilliam MD, FCAP, ??CLIA Certificate: [id number] SPECIMEN(S) SUBMITTED A - Esophagus at 30 [...] labeled G1. ??sns 04/09/2022 9:14 AM EST [facility] GI Biopsy 03/31/2022 10:2 1 [...] AM EST 03/31/2022 10:21 AM EST David Deejsus MD PATHOLOGY/CYTOLOGY ORDERABLES [facility] [place] [address] * UPPER GI ENDOSCOPY (03/31/2022 9:56 AM EST) UPPER GI ENDOSCOPY [facility] Endoscopy Procedure Date: 03/31/2022 9:56 AM ? Patient Name: Jennifer Irving ? Date of : 1960 ? Age: 61 ? Order #: [id number] ? Instrument Name: [id number] ? Procedure: ? Upper GI endoscopy Indications: ? Follow-up of Farrell's esophagus Providers: ? David Dejesus MD, Trell López ? Wiseman, Eligio Sadler RN, Kenna ? Chelsey Referring : ?Ana [...] [employer]OV[employer] 03/31/2022 9:56 AM EST Ana Gillespie ASSISTANT KITCHEN MANAGER GENERAL SURGICAL ORD ERABLES [employer] * POCT Glucose (03/31/2022 9:18 AM EST) Glucose, POC 180 65 - 199 mg/dL [facility] Comment: Supplemental ranges: <140 mg/dL before meals <180 mg/dL all other times of the day Blood 03/31/2022 9:18 AM EST 03/31/2022 9:18 AM EST David Dejesus MD POINT OF CARE TEST ORDERABLES [facility] [place] [address] documented in this encounter Visit Diagnoses Not [...] CRNA) documented in this encounter Care Teams Dry Mixer Relationship Specialty Start Date End Date Ana Gillespie APRN [address] [place] [address] PCP - General Family Medicine 02/03/19 documented as of this encounter
--- OUTSIDE RECORDS SUMMARY | 2024-04-19 23:02 | XMS_ITS | Encounter Summary ---
Author Organization [facility] Address [facility] [place] [address] Care Team Providers Care Machine Bender Name Role Phone Ana Gillespie VAUGHN Primary Care Provider [phone] Encounter Details Date Type Department Care Team (Late st Contact Info) Description 03/31/2022 10:15 AM EST - 03/31/2022 10:45 AM EST Surgery Gastroenterology at [facility] [place] [address] David Dejesus MD [facility] [place] [address] EGD WITH BIOPSY (WRVU 2.39) Social History [...] the day after the procedure, use an bcba-gkt-duwongq spray to numb your throat. Sucking on [...] occurs, please contact your Doctor. Please call [phone] before 8pm Mon-Fri with problems, questions or concerns. If you call after 8pm or on weekends, call the Hospital at [phone] and ask to speak to the Hourly Caregiver global professional and the harvester operator will contact that person for you. When should you call for help? Call [phone] anytime you think you may need emergency [...] Where can you learn more? [facility] View your After Visit Summary and more online at [email or web address] If you would like to [...] cost to you. Content Version: 12.2 ?? 8627-8340 [employer]. Care instructions adapted under license by [facility]. If you have questions about a medical condition or this instruction, always ask your healthcare professional. [employer] disclaims any warranty or liability for your [...] meter kit. 1 each 0 12/14/2014 Insulin [place], Disposable, (BD INSULIN PEN NEEDLE UF MINI) [...] 04/26/2024 8:30 AM [place] [address] Gavin Carrillo MD [facility] [place] [address] 06/05/2024 1:20 PM EST Office Visit Cardiology at [address] [address] Milagros Hernandez MD [facility] [place] [address] Scheduled Procedures Name Priority Associated Diagnoses Date/Ti [...] 10:21 AM EST Endoscopic Us Exam, Esoph ([id number]) 03/31/2022 9:59 AM EST Schedule EGD in two years Upper Gi Endoscopy, Biopsy ([id number]) 03/31/2022 9:59 AM EST Schedule EGD in two years UPPER GI ENDOSCOPY Routine 03/31/2022 9: 56 AM EST POCT GLUCOSE Routine 03/31/2022 9:18 AM EST documented in this encounter Results * Specimen to Pathology (03/31/2022 10:36 AM EST) AP Specimen 03/31/2022 10:3 6 AM EST 03/31/2022 10:36 AM EST Narrative [facility] - 03/31/2022 10:36 AM EST Specimen requisition ordered. ??Separate Pathology report to follow David Dejesus MD PATHOLOGY/CYTOLOGY ORDERABLES [facility] [place] [address] * Specimen to Pathology (03/31/2022 10:36 AM EST) AP Specimen 03/31/2022 10:3 6 AM EST 03/31/2022 10:36 AM EST Narrative [facility] - 03/31/2022 10:36 AM EST Specimen requisition ordered. ??Separate Pathology report to follow David Dejesus MD PATHOLOGY/CYTOLOGY ORDERABLES [facility] [place] [address] * Specimen to Pathology (03/31/2022 10:36 AM EST) AP Specimen 03/31/2022 10:3 6 AM EST 03/31/2022 10:36 AM EST Narrative [facility] - 03/31/2022 10:36 AM EST Specimen requisition ordered. ??Separate Pathology report to follow David Dejesus MD PATHOLOGY/CYTOLOGY ORDERABLES Performing Organization Address City/[facility]/ZIP Co de Phone Number [facility] [place] [address] * Specimen to Pathology (03/31/2022 10:36 AM EST) AP Specimen 03/31/2022 10:3 6 AM EST 03/31/2022 10:36 AM EST Narrative [facility] - 03/31/2022 10:36 AM EST Specimen requisition ordered. ??Separate Pathology report to follow David Dejesus MD PATHOLOGY/CYTOLOGY ORDERABLES Performing Organization Address City/[facility]/[place] [address] * Specimen to Pathology (03/31/2022 10:36 AM EST) AP Specimen 03/31/2022 10:3 6 AM EST 03/31/2022 10:36 AM EST Narrative [facility] - 03/31/2022 10:36 AM EST Specimen requisition ordered. ??Separate Pathology report to follow David Dejesus MD PATHOLOGY/CYTOLOGY ORDERABLES Performing Organization Address [facility] [place] [address] * Specimen to Pathology (03/31/2022 10:36 AM EST) AP Specimen 03/31/2022 10:3 6 AM EST 03/31/2022 10:36 AM EST Narrative [facility] - 03/31/2022 10:36 AM EST Specimen requisition ordered. ??Separate Pathology report to follow David Dejesus MD PATHOLOGY/CYTOLOGY ORDERABLES Performing Organization Address [facility] [place] [address] * Specimen to Pathology (03/31/2022 10:36 AM EST) AP Specimen 03/31/2022 10:3 6 AM EST 03/31/2022 10:36 AM EST Narrative [facility] - 03/31/2022 10:36 AM EST Specimen requisition ordered. ??Separate Pathology report to follow David Dejesus MD PATHOLOGY/CYTOLOGY ORDERABLES Performing Organization Address [facility] [place] [address] * Surgical Pathology Report (03/31/2022 10:21 AM EST) Final Diagnosis [id number] ? Location: 4T; EA08; A The signing [...] Verified: ??04/09/2022 9:14 ?? Pathologist Performed at: ??-[facility] Dept. of Pathology, [place] [address] Financial Sales Associate: Vishal Gilliam MD, FCAP, ??CLIA Certificate: [id number] SPECIMEN(S) SUBMITTED A - Esophagus at 30 [...] labeled G1. ??sns 04/09/2022 9:14 AM EST [facility] GI Biopsy 03/31/2022 10:2 1 [...] AM EST David Dejesus MD PATHOLOGY/CYTOLOGY ORDERABLES [facility] [place] [address] * UPPER GI ENDOSCOPY (03/31/2022 9:56 AM EST) Pathologist [facility] UPPER GI ENDOSCOPY [facility] Endoscopy Procedure Date: 03/31/2022 9:56 AM ? Patient Name: Jennifer Irving ? Date of : 1960 ? Age: 61 ? Order #: [id number] ? Instrument Name: [id number] ? Procedure: ? Upper GI endoscopy Indications: ? Follow-up of Farrell's esophagus Providers: ? David Dejesus MD, Trell Key. ? Ivone, Eligio aSdler RN, Kenna ? Chelsey Referring : ?Ana [...] PROVATION 03/31/2022 9:56 AM EST Ana Gillespie PRE PAROLE COUNSELING AIDE GENERAL SURGICAL ORD ERABLES PROVATION * POCT Glucose (03/31/2022 9:18 AM EST) Glucose, POC 180 65 - 199 mg/dL [facility] Comment: Supplemental ranges: <140 mg/dL before meals <180 mg/dL all other times of the day Blood 03/31/2022 9:18 AM EST 03/31/2022 9:18 AM EST David Dejesus MD POINT OF CARE TEST ORDERABLES [facility] [place] [address] documented in this encounter Visit Diagnoses Not [...] CRNA) documented in this encounter Care Teams Machine Bender Relationship Specialty Start Date End Date Ana Gillespie APRN [address] [place] [address] PCP - General Family Medicine 02/03/19 documented as of this encounter
--- OUTSIDE RECORDS SUMMARY | 2024-04-19 23:02 | XMS_ITS | Encounter Summary ---
Author Organization [facility] [place] [address] Care Team Providers Care Manager Policy Name Role Phone Ana Gillespie VAUGHN Primary Care Provider [phone] Encounter Details Date Type Department Care Team (Late st Contact Info) Description 10/21/2021 Telephone [place] [address] Chiquita James, RN Social History [...] 04/26/2024 8:30 AM [place] [address] Gavin Carrillo MD [facility] [place] [address] 06/05/2024 1:20 PM EST Office Visit Cardiology at [address] [address] Milagros Hernandez MD [facility] [place] [address] Scheduled Procedures Name Priority Associated Diagnoses Date/Ti me EGD, UPPER GI ENDOSCOPY (WRV U 2.09) Peptic stricture of esophagus documented as of this encounter Visit Diagnoses Not on filedocumented in this encounter Care Teams Manager Policy Relationship Specialty Start Date End Date Ana Gillespie APRN [address] [place] [address] PCP - General Family Medicine 02/03/19 documented as of this encounter
--- OUTSIDE RECORDS SUMMARY | 2024-04-19 23:02 | XMS_ITS | Encounter Summary ---
Author Organization [facility] Address [facility] [place] [address] Care Team Providers Care Waxer Name Role Phone Ana Gillespie VAUGHN Primary Care Provider [phone] Encounter Details Date Type Department Care Team (Late st Contact Info) Description 11/25/2021 Telephone Gastroenterology at [place] [phone] Alla Mejia Social History Tobacco Use Types [...] 04/26/2024 8:30 AM EST Appointment Radiology at [place] [phone] Gavin Carrillo MD [facility] [place] [address] 06/05/2024 1:20 PM EST Office Visit Cardiology at [address] [address] Milagros Hernandez MD [facility] [place] [address] Scheduled Procedures Name Priority Associated Diagnoses Date/Ti me EGD, UPPER GI ENDOSCOPY (WRV U 2.09) Peptic stricture of esophagus documented as of this encounter Visit Diagnoses Not on filedocumented in this encounter Care Teams Waxer Relationship Specialty Start Date End Date Ana Gillespie APRN [address] [place] [address] PCP - General Family Medicine 02/03/19 documented as of this encounter
--- OUTSIDE RECORDS SUMMARY | 2024-04-19 23:02 | XMS_ITS | Encounter Summary ---
Author Organization [facility] Address [facility] [place] [address] Care Team Providers Care Vibration Analyst Name Role Phone Ana Gillespie VAUGHN Primary Care Provider [phone] Reason for Visit * Reason Onset Date Comments TeleHealth 05/20/2022 Medication and a llergy review. Encounter Details Date Type Department Care Team (Late st Contact Info) Description 05/20/2022 [place] [address] Alfonso Rose MD [facility] [place] [address] TeleHealth (Medication and allergy review. ) Social [...] 04/26/2024 8:30 AM [place] [phone] Gavin Carrillo MD [facility] [place] [address] 06/05/2024 1:20 PM EST Office Visit Cardiology at [address] [address] Milagros Hernandez MD [facility] [place] [address] Scheduled Procedures Name Priority Associated Diagnoses Date/Ti me EGD, UPPER GI ENDOSCOPY (WRV U 2.09) Peptic stricture of esophagus documented as of this encounter Visit Diagnoses Not on filedocumented in this encounter Care Teams Vibration Analyst Relationship Specialty Start Date End Date Ana Gillespie APRN [address] [place] [address] PCP - General Family Medicine 02/03/19 documented as of this encounter
--- OUTSIDE RECORDS SUMMARY | 2024-04-19 23:02 | XMS_ITS | Encounter Summary ---
Author Organization [facility] Address [facility] [place] [address] Care Team Providers Care Telephone Supervisor Name Role Phone Ana Gillespie APRN Primary Care Provider [phone] Encounter Details Date Type Department Care Team (Late st Contact Info) Description 03/31/2022 9:58 AM EST Anesthesia [place] [phone] Alfonso Duarte MD [facility] [address] [place] [address] Sergey Hahn CRNA [facility] [place] [address] Anesthesia Record Procedure Summary Procedure Name Responsible [...] 920; median cubital vein (antecubital fossa), right; wiwn-uoi-xmdjbr catheter system; Anatomical Landmarks; US Not Used; [...] Procedure Summary Date: 03/31/22 Room / Location: [facility] ENDO 2 / [facility] Anesthesia Start: 957 Anesthesia Stop: 1038 Procedures: EGD WITH BIOPSY (WRVU 2.49) UPPER EUS- ENDOSCOPIC ULTRASOUND (Trunk) Diagnosis: (Schedule EGD in two years) Surgeons: David Dejesus MD Responsible Provider: Alfonso Duarte MD Anesthesia Type: MAC ASA Status: 3 All Anesthesia Providers: Anesthesiologist: Alfonso Duarte MD COMPOUNDER HELPER: Susy Juárez CRNA Vitals Value Taken Time [...] BX performed by David Dejesus MD at [facility] ENDOSCOPY ??? PRO COLONOSCOPY, DIAGNOSTIC N/A 03/01/2020 COLONOSCOPY, DIAGNOSTIC performed by David Dejesus MD at [facility] ENDOSCOPY ??? PRO UPPER GI ENDOSCOPY, BIOPSY N/A 04/03/2014 UPPER GASTROINTESTINAL ENDOSCOPY,WITH BIOPSY SINGLE OR MULTIPLE performed by David Dejesus MDat [facility] ENDOSCOPY ??? PRO UPPER GI ENDOSCOPY, BIOPSY N/A 03/20/2016 EGD WITH BIOPSY performed by David Dejesus MD at [facility] ENDOSCOPY ??? PRO UPPER GI ENDOSCOPY, BIOPSY N/A 11/22/2018 EGD WITH BIOPSY (WRVU 2.49) performed by David Dejesus MD at [facility] ENDOSCOPY ??? PRO UPPER GI ENDOSCOPY, BIOPSY N/A 03/01/2020 UPPER GASTROINTESTINAL ENDOSCOPY,WITH BIOPSY SINGLE OR MULTIPLE (WRVU 2.49) performed by David Dejesus MD at [facility] ENDOSCOPY ??? PRO UPPER GI ENDOSCOPY, BIOPSY N/A 09/23/2021 EGD WITH BIOPSY (WRVU 2.49) performed by David Dejesus MD at [facility] ENDOSCOPY ??? PRO UPPER GI ENDOSCOPY, DIAGNOSTIC N/A 04/03/2014 EGD, UPPER GI ENDOSCOPY performed by David Dejesus MD at [facility] ENDOSCOPY ??? PRO UPPER GI ENDOSCOPY, DIAGNOSTIC N/A 03/01/2020 EGD, UPPER GI ENDOSCOPY performed by David Dejesus MD at [facility] ENDOSCOPY Social History Tobacco Use [...] risks discussed with patient. Plan discussed with COMPOUNDER HELPER. Pre-Anesthesia Evaluation for: Jennifer Irving a 61 [...] BX performed by David Dejesus MD at [facility] ENDOSCOPY ??? PRO COLONOSCOPY, DIAGNOSTIC N/A 03/01/2020 COLONOSCOPY, DIAGNOSTIC performed by David Dejesus MD at [facility] ENDOSCOPY ??? PRO UPPER GI ENDOSCOPY, BIOPSY N/A 04/03/2014 UPPER GASTROINTESTINAL ENDOSCOPY,WITH BIOPSY SINGLE OR MULTIPLE performed by David Dejesus MDat [facility] ENDOSCOPY ??? PRO UPPER GI ENDOSCOPY, BIOPSY N/A 03/20/2016 EGD WITH BIOPSY performed by David Dejesus MD at [facility] ENDOSCOPY ??? PRO UPPER GI ENDOSCOPY, BIOPSY N/A 11/22/2018 EGD WITH BIOPSY (WRVU 2.49) performed by David Dejesus MD at [facility] ENDOSCOPY ??? PRO UPPER GI ENDOSCOPY, BIOPSY N/A 03/01/2020 UPPER GASTROINTESTINAL ENDOSCOPY,WITH BIOPSY SINGLE OR MULTIPLE (WRVU 2.49) performed by David Dejesus MD at [facility] END[facility]COPY ??? PRO UPPER GI ENDOSCOPY, BIOPSY N/A 09/23/2021 EGD WITH BIOPSY (WRVU 2.49) performed by David Dejesus MD at [facility] ENDOSCOPY ??? PRO UPPER GI ENDOSCOPY, DIAGNOSTIC N/A 04/03/2014 EGD, UPPER GI ENDOSCOPY performed by David Dejesus MD at [facility] END[facility]COPY ??? PRO UPPER GI ENDOSCOPY, DIAGNOSTIC N/A 03/01/2020 EGD, UPPER GI ENDOSCOPY performed by David Dejesus MD at [facility] Social History Tobacco Use [...] 5 years - MAC without issue Plan [facility] Violet Miguel MD 01/26/2022 [employer] Pager #[phone] Informed Consent: Anesthesia Screening Pre-Anesthesia Evaluation for: [...] BX performed by David Dejesus MD at [facility] ENDOSCOPY ??? PRO COLONOSCOPY, DIAGNOSTIC N/A 03/01/2020 COLONOSCOPY, DIAGNOSTIC performed by David Dejesus MD at [facility] ENDOSCOPY ??? PRO UPPER GI ENDOSCOPY, BIOPSY N/A 04/03/2014 UPPER GASTROINTESTINAL ENDOSCOPY,WITH BIOPSY SINGLE OR MULTIPLE performed by David Dejesus MDat [facility] END[facility]COPY ??? PRO UPPER GI ENDOSCOPY, BIOPSY N/A 03/20/2016 EGD WITH BIOPSY performed by David Dejesus MD at [facility] END[facility]COPY ??? PRO UPPER GI ENDOSCOPY, BIOPSY N/A 11/22/2018 EGD WITH BIOPSY (WRVU 2.49) performed by David Dejesus MD at [facility] ENDOSCOPY ??? PRO UPPER GI ENDOSCOPY, BIOPSY N/A 03/01/2020 UPPER GASTROINTESTINAL ENDOSCOPY,WITH BIOPSY SINGLE OR MULTIPLE (WRVU 2.49) performed by David Dejesus MD at [facility]COPY ??? PRO UPPER GI ENDOSCOPY, BIOPSY N/A 09/23/2021 EGD WITH BIOPSY (WRVU 2.49) performed by David Dejesus MD at [facility]COPY ??? PRO UPPER GI ENDOSCOPY, DIAGNOSTIC N/A 04/03/2014 EGD, UPPER GI ENDOSCOPY performed by David Dejesus MD at [facility] END[facility]COPY ??? PRO UPPER GI ENDOSCOPY, DIAGNOSTIC N/A 03/01/2020 EGD, UPPER GI ENDOSCOPY performed by David Dejesus MD at [facility] Social History Tobacco Use [...] risks discussed with patient. Plan discussed with COMPOUNDER HELPER. Anesthesia Screening Anesthesia Screening documented in this encounter Plan of Treatment Upcoming Encounters Date Type Department Care Team (Late st Contact Info) Description 04/26/2024 8:30 AM EST Appointment [place] [address] Gavin Carrillo MD [facility] INTER[place] [address] 06/05/2024 1:20 PM EST Office Visit Cardiology at [address] [address] Milagros Hernandez MD [facility] [place] [address] Scheduled Procedures Name Priority Associated [...] mg documented in this encounter Care Teams Telephone Supervisor Relationship Specialty Start Date End Date Ana Gillespie APRN [address] [place] [address] PCP - General Family Medicine 02/03/19 documented as of this encounter
--- OUTSIDE RECORDS SUMMARY | 2024-04-19 23:02 | XMS_ITS | Encounter Summary ---
Author Organization [facility] [place] [address] Care Team Providers Care Administration Assistant Name Role Phone Jose Miguel Ana QUALITY MEASUREMENT SPECIALIST Primary Care Provider [phone] Encounter Details Date Type Department Care Team (Late st Contact Info) Description 08/08/2022 Ancillary Procedure Radiology Library at [facility] [place] [address] Ana Gillespie APRN [address] [place] [address] Social History Tobacco Use Types [...] 04/26/2024 8:30 AM EST Appointment [place] [phone] Gavin Carrillo MD [facility] [place] [address] 06/05/2024 1:20 PM EST Office Visit Cardiology at [address] [phone] Milagros Hernandez MD [facility] [place] [address] Scheduled Procedures Name Priority Associated Diagnoses Date/Ti me EGD, UPPER GI ENDOSCOPY (WRV U 2.09) Peptic stricture of esophagus documented as of this encounter Procedures Procedure Name Priority Date/Time Associated Diagnosis Comments FILM LIBRARY STORAGE ONLY CT LOWER EXTREMITY Routine 08/08/2022 12:00 AM EDT documented in this encounter Results * Film Library- Storage Only CT Lower Extremity (08/08/2022 12:00 AM EDT) Narrative [facility] - 08/14/2022 6:04 PM EDT This exam is auto-finalizing. It's purpose is for storage only. Ana Gillespie APRN [employer] FILM LIBRARY ORD ERABLES [place], [place] documented in this encounter Visit Diagnoses Not on filedocumented in this encounter Care Teams Administration Assistant Relationship Specialty Start Date End Date Ana Gillespie APRN [address] [place] [address] PCP - General Family Medicine 02/03/19 documented as of this encounter
--- OUTSIDE RECORDS SUMMARY | 2024-04-19 23:02 | XMS_ITS | Encounter Summary ---
Author Organization [facility] Address [facility] [place] [address] Care Team Providers Care Hide Curer Name Role Phone Ana Gillespie APRN Primary Care Provider [phone] Encounter Details Date Type Department Care Team (Late st Contact Info) Description 06/05/2022 Telephone Gastro[place]ology [place] [address] Crissy Causey Social History Tobacco Use Types [...] 04/26/2024 8:30 AM EST Appointment [place] [address] Gavin Carrillo MD [facility] INTERVENTIONAL [place] [address] 06/05/2024 1:20 PM EST Office Visit Cardiology at [address] [address] Milagros Hernandez MD [facility] [place] [address] Scheduled Procedures Name Priority Associated Diagnoses Date/Ti me EGD, UPPER GI ENDOSCOPY (WRV U 2.09) Peptic stricture of esophagus documented as of this encounter Visit Diagnoses Not on filedocumented in this encounter Care Teams Hide Curer Relationship Specialty Start Date End Date Ana Gillespie APRN [address] [place] [address] PCP - General Family Medicine 02/03/19 documented as of this encounter
--- OUTSIDE RECORDS SUMMARY | 2024-04-19 23:02 | XMS_ITS | Encounter Summary ---
Author Organization [facility] Address [facility] [place] [address] Care Team Providers Care Returned Telephone Equipment Appraiser Name Role Phone Ana Gillespie VAUGHN Primary Care Provider [phone] Encounter Details Date Type Department Care Team (Late st Contact Info) Description 07/03/2022 8:30 AM EST - 07/03/2022 9:00 AM EST Surgery Gastroenterology at [facility] [place] [address] David Dejesus MD [facility] [place] [address] EGD WITH BIOPSY (WRVU 2.39) Social History [...] Care Everywhere. * EGD (Upper Endoscopy): Post-op (Cameroonian) documented in this encounter Medications at Time [...] meter kit. 1 each 0 12/14/2014 Insulin [place], Disposable, (BD INSULIN PEN NEEDLE UF MINI) [...] for dosing. 15 mL 11 ??? Insulin [place], Disposable, (BD INSULIN PEN NEEDLE UF MINI) [...] 04/26/2024 8:30 AM EST [place] [phone] Gavin Carrillo MD [facility] [place] [address] 06/05/2024 1:20 PM EST Office Visit Cardiology at [address] [phone] Milagros Hernandez MD [facility] [place] [address] Scheduled Procedures Name Priority Associated Diagnoses Date/Ti me EGD, UPPER GI ENDOSCOPY (WRV U 2.09) Peptic stricture of esophagus documented as of this encounter Procedures Procedure Name Priority Date/Time Associated Diagnosis Comments SURGICAL PATHOLOGY REPORT Routine 07/03/2022 9:02 AM EST SPECIMEN TO PATHOLOGY Routine 07/03/2022 9:02 AM EST SPECIMEN TO PATHOLOGY Routine 07/03/2022 9:02 AM EST Upper Gi Endoscopy, Biopsy ([id number]) 07/03/2022 8:39 AM EST Farrell's esophagus without dysplasia POCT GLUCOSE Routine 07/03/2022 7:37 AM EST UPPER GI ENDOSCOPY Routine 07/03/2022 7: 26 AM EST documented in this encounter Results * Surgical Pathology Report (07/03/2022 9:02 AM EST) Final Diagnosis [id number] ? Location: 4T; [facility]; A The signing pathologist has [...] Note). Note: Immunostains for p53, CD31 and [id number] were evaluated for final diagnosis. Electronically signed by: ?Chinmay Nguyen MD Verified: ??07/08/2022 16:29 ??Pathologist Performed at: ??-[facility] Dept. of Pathology, [place] [id number] Loading Inspector: Vishal Gilliam MD, FCAP, ??CLIA Certificate: [id number] ADDITIONAL STUDIES Immunohistochemistry Studies: Formalin-fixed, paraffin-embedded tissue [...] note ? CD31 ? see note ? [id number] ? see note SPECIMEN(S) SUBMITTED A - [...] AM EST David Dejesus MD PATHOLOGY/CYTOLOGY ORDERABLES [facility] [place] [place] [address] [facility] [place] [address] * Specimen to Pathology (07/03/2022 9:02 AM EST) AP Specimen 07/03/2022 9:02 AM EST 07/03/2022 9:02 AM EST Narrative [facility] - 07/03/2022 9:02 AM EST Specimen requisition ordered. ??Separate Pathology report to follow David Dejesus MD PATHOLOGY/CYTOLOGY ORDERABLES Performing Organization Address [facility] Co de Phone Number [facility] [place] [address] * Specimen to Pathology (07/03/2022 9:02 AM EST) AP Specimen 07/03/2022 9:02 AM EST 07/03/2022 9:02 AM EST Narrative [facility] - 07/03/2022 9:02 AM EST Specimen requisition ordered. ??Separate Pathology report to follow David Dejesus MD PATHOLOGY/CYTOLOGY ORDERABLES Performing Organization Address [facility] Co de Phone Number [facility] [place] [address] * POCT Glucose (07/03/2022 7:37 AM EST) Glucose, POC 139 65 - 199 mg/dL [facility] Comment: Supplemental ranges: <140 mg/dL before meals <180 mg/dL all other times of the day Blood 07/03/2022 7:37 AM EST 07/03/2022 7:37 AM EST David Dejesus MD POINT OF CARE TEST ORDERABLES Performing Organization Address [facility] [place] [address] * UPPER GI ENDOSCOPY (07/03/2022 7:26 AM EST) UPPER GI ENDOSCOPY [facility] Endoscopy Procedure Date: 07/03/2022 7:26 AM ? Patient Name: Jennifer Irving ? Date of : 1960 ? Age: 62 ? Order #: [id number] ? Instrument Name: [id number] ? Procedure: ? Upper GI endoscopy Indications: ? Dysphagia, Follow-up of Farrell's ? esophagus Providers: ? David Dejesus MD, Lucia Arroyo ? Tapan Agustin Referring MD: ?Ana Gillespie Medicines: ? Monitored [...] PROVATION 07/03/2022 7:26 AM EST Ana Gillespie LUBE ATTENDANT GENERAL SURGICAL ORD ERABLES PROVATION documented in [...] CRNA) documented in this encounter Care Teams Returned Telephone Equipment Appraiser Relationship Specialty Start Date End Date Ana Gillespie APRN [address] [place] [address] PCP - General Family Medicine 02/03/19 documented as of this encounter
--- OUTSIDE RECORDS SUMMARY | 2024-04-19 23:02 | XMS_ITS | Encounter Summary ---
Author Organization [facility] [place] [address] Care Team Providers Care Wine Maker Name Role Phone Ana Gillespie VAUGHN Primary Care Provider [phone] Encounter Details Date Type Department Care Team (Late st Contact Info) Description 10/27/2021 Telephone [place] [address] Chiquita James, RN Social History [...] 04/26/2024 8:30 AM EST Appointment [place] [address] [facility] [place] [address] 06/05/2024 1:20 PM EST Office Visit Cardiology at [address] [address] [facility] [place] [address] Scheduled Procedures Name Priority Associated Diagnoses Date/Ti me EGD, UPPER GI ENDOSCOPY (WRV U 2.09) Peptic stricture of esophagus documented as of this encounter Visit Diagnoses Not on filedocumented in this encounter Care Teams Wine Maker Relationship Specialty Start Date End Date Ana Gillespie APRN [address] [place] [address] PCP - General Family Medicine 02/03/19 documented as of this encounter
--- OUTSIDE RECORDS SUMMARY | 2024-04-19 23:02 | XMS_ITS | Encounter Summary ---
Author Organization [facility] [place] [address] Care Team Providers Care Drill Bit Sharpener Name Role Phone Ana Gillespie APRN Primary Care Provider [phone] Encounter Details Date Type Department Care Team (Late st Contact Info) Description 12/01/2021 Telephone Gastroenterology at [facility] [place] [phone] Alla Mejia Social History Tobacco Use Types [...] - 12/01/2021 4:07 PM EDT Jennifer Irving [id number] Diagnosis/Indication: folow-up esophagitis Please review patient chart [...] procedure. Who will likely be your driver education instructor for the procedure? *Please Verify the height [...] 04/26/2024 8:30 AM EST [place] [address] Gavin Carrillo MD [facility] [place] [address] 06/05/2024 1:20 PM EST Office Visit Cardiology at [address] [address] Milagros Hernandez MD [facility] [place] [place] [address] Scheduled Procedures Name Priority Associated Diagnoses Date/Ti me EGD, UPPER GI ENDOSCOPY (WRV U 2.09) Peptic stricture of esophagus documented as of this encounter Visit Diagnoses Not on filedocumented in this encounter Care Teams Drill Bit Sharpener Relationship Specialty Start Date End Date Ana Gillespie APRN [address] [place] [address] PCP - General Family Medicine 02/03/19 documented as of this encounter
--- OUTSIDE RECORDS SUMMARY | 2024-04-19 23:02 | XMS_ITS | Encounter Summary ---
Author Organization [facility] Address [facility] [place] [address] Care Team Providers Care Candles Pourer Name Role Phone Ana Gillespie VAUGHN Primary Care Provider [phone] Encounter Details Date Type Department Care Team (Late st Contact Info) Description 11/27/2021 Telephone Gastroenterology at [place] [phone] Alla Mejia Social History Tobacco Use Types [...] 04/26/2024 8:30 AM EST Appointment Radiology at [place] [phone] Gavin Carrillo MD [facility] [place] [address] 06/05/2024 1:20 PM EST Office Visit Cardiology at [address] [address] Milagros Hernandez MD [facility] [place] [address] Scheduled Procedures Name Priority Associated Diagnoses Date/Ti me EGD, UPPER GI ENDOSCOPY (WRV U 2.09) Peptic stricture of esophagus documented as of this encounter Visit Diagnoses Not on filedocumented in this encounter Care Teams Candles Pourer Relationship Specialty Start Date End Date Ana Gillespie APRN [address] [place] [address] PCP - General Family Medicine 02/03/19 documented as of this encounter
--- OUTSIDE RECORDS SUMMARY | 2024-04-19 23:02 | XMS_ITS | Encounter Summary ---
Author Organization [facility] [place] [address] Care Team Providers Care Brigadier Name Role Phone Ana Gillespie APRN Primary Care Provider [phone] Encounter Details Date Type Department Care Team (Late st Contact Info) Description 07/03/2022 8:40 AM EST Anesthesia [place] [phone] Shanell Taylor MD Charron, Bethany A [facility] [place] [address] Anesthesia Record Procedure Summary Procedure Name Responsible [...] Procedure Summary Date: 07/03/22 Room / Location: [facility] ENDO 2 / [facility] Anesthesia Start: 839 Anesthesia Stop: 900 Procedure: EGD WITH BIOPSY (WRVU 2.49) (Trunk) Diagnosis: Farrell's esophagus without dysplasia (dysphagia) Surgeons: David Dejesus MD Responsible Provider: Shanell Taylor MD Anesthesia Type: other ASA Status: 3 All Anesthesia Providers: Anesthesiologist: Shanell Taylor MD WHITE SPOOLER: Jamar Spaulding CRNA Vitals Value Taken Time BP 110/53 07/03/22 0910 Temp Pulse Resp SpO2 92 % 07/03/22 0919 Pain Level 0 07/03/22 0910 Vitals shown include unvalidated device data. Patient Location: PACU/[facility] Level of Consciousness: Conscious but Sleepy [...] MD at [facility] ENDOSCOPY ??? PRO COLONOSCOPY, DIAGNOSTIC N/A 03/01/2020 COLONOSCOPY, DIAGNOSTIC performed by David Dejesus MD at [facility] ENDOSCOPY ??? PRO ENDOSCOPIC US EXAM, ESOPH N/A 03/31/2022 UPPER EUS- ENDOSCOPIC ULTRASOUND performed by David Dejesus MD at [facility] ENDOSCOPY ??? PRO UPPER GI ENDOSCOPY, BIOPSY N/A 04/03/2014 UPPER GASTROINTESTINAL ENDOSCOPY,WITH BIOPSY SINGLE OR MULTIPLE performed by David Dejesus MDat [facility] ENDOSCOPY ??? PRO UPPER GI ENDOSCOPY, BIOPSY N/A 03/20/2016 EGD WITH BIOPSY performed by David Dejesus MD at [facility] ENDOSCOPY ??? PRO UPPER GI ENDOSCOPY, BIOPSY N/A 11/22/2018 EGD WITH BIOPSY (WRVU 2.49) performed by David Dejesus MD at [facility] ENDOSCOPY ??? PRO UPPER GI ENDOSCOPY, BIOPSY N/A 03/01/2020 UPPER GASTROINTESTINAL ENDOSCOPY,WITH BIOPSY SINGLE OR MULTIPLE (WRVU 2.49) performed by David Dejesus MD at [facility] ENDOSCOPY ??? PRO UPPER GI ENDOSCOPY, BIOPSY N/A 09/23/2021 EGD WITH BIOPSY (WRVU 2.49) performed by David Dejesus MD at [facility] ENDOSCOPY ??? PRO UPPER GI ENDOSCOPY, BIOPSY N/A 03/31/2022 EGD WITH BIOPSY (WRVU 2.49) performed by David Dejesus MD at [facility] ENDOSCOPY ??? PRO UPPER GI ENDOSCOPY, DIAGNOSTIC N/A 04/03/2014 EGD, UPPER GI ENDOSCOPY performed by David Dejesus MD at [facility] END[facility]COPY ??? PRO UPPER GI ENDOSCOPY, DIAGNOSTIC N/A 03/01/2020 EGD, UPPER GI ENDOSCOPY performed by David Dejesus MD at [facility] END[facility] Social History Tobacco Use ??? [...] with patient and spouse. Plan discussed with WHITE SPOOLER and attending. Anesthesia Screening Code Status: Full code I discussed the risks of general anesthesia as detailed by the preoperative anesthesia consent withthis patient. The patient demonstrated adequate understanding and acknowledged these risks and wishes to proceed with scheduled surgery. All questions related to anesthetic care were welcomed and answered to satisfaction. Shanell Taylor MD MS Anesthesiologist, [facility] Pager [phone] documented in this encounter Plan of Treatment Upcoming Encounters Date Type Department Care Team (Late st Contact Info) Description 04/26/2024 8:30 AM EST [place] [address] Gavin Carrillo MD [facility] DR INTERVENTIONAL [place] [address] 06/05/2024 1:20 PM EST Office Visit Cardiology at [address] [phone] Milagros Hernandez MD [facility] [place] [address] Scheduled Procedures Name Priority Associated [...] mg documented in this encounter Care Teams Brigadier Relationship Specialty Start Date End Date Ana Gillespie APRN [address] [place] [address] PCP - General Family Medicine 02/03/19 documented as of this encounter
--- OUTSIDE RECORDS SUMMARY | 2024-04-19 23:02 | XMS_ITS | Encounter Summary ---
Author Organization [facility] [place] [address] Care Team Providers Care Executive Marketing Assistant Name Role Phone Ana Gillespie APRN Primary Care Provider [phone] Encounter Details Date Type Department Care Team (Late st Contact Info) Description 07/09/2022 Orders [place] [phone] David Dejesus MD [facility] [place] [address] Farrell's esophagus without dysplasia Social History Tobacco [...] 04/26/2024 8:30 AM [place] [phone] Gavin Carrillo MD [facility] [place] [address] 06/05/2024 1:20 PM EST Office Visit Cardiology at [address] [phone] Milagros Hernandez MD [facility] [place] [place] [address] Scheduled Orders Name Type Priority Associated Diagnoses [...] esophagus documented in this encounter Care Teams Executive Marketing Assistant Relationship Specialty Start Date End Date Ana Gillespie APRN [address] [place] [address] PCP - General Family Medicine 02/03/19 documented as of this encounter
--- OUTSIDE RECORDS SUMMARY | 2024-04-19 23:02 | XMS_ITS | Encounter Summary ---
Author Organization [facility] [place] [address] Care Team Providers Care Administrative Services Director Name Role Phone Ana Gillespie APRN Primary Care Provider [phone] Reason for Visit * Reason Onset Date Comments Medication Refill 10/20/2021 Encounter Details Date Type Department Care Team (Late st Contact Info) Description 10/20/2021 Ref[place] [phone] David Dejesus MD [facility] [place] [address] Gastroesophageal reflux disease with esophagitis without hemorrhage [...] 04/26/2024 8:30 AM EST [place] [address] Gavin Carrillo MD [facility] [place] [address] 06/05/2024 1:20 PM EST Office Visit Cardiology at [address] [phone] Milagros Hernandez MD [facility] [place] [address] Scheduled Procedures Name Priority Associated Diagnoses Date/Ti me EGD, UPPER GI ENDOSCOPY (WRV U 2.09) Peptic stricture of esophagus documented as of this encounter Visit Diagnoses Diagnosis Gastroesophageal reflux disease with esophagitis without hemorrhage documented in this encounter Care Teams Administrative Services Director Relationship Specialty Start Date End Date Ana Gillespie APRN [address] [place] [address] PCP - General Family Medicine 02/03/19 documented as of this encounter
--- OUTSIDE RECORDS SUMMARY | 2024-04-19 23:02 | XMS_ITS | Encounter Summary ---
[place] [address] Care Team Providers Care Patternmaker Name Role Phone Ana Gillespie VAUGHN Primary Care Provider [phone] Encounter Details Date Type Department Care Team (Late Contact Info) Description 11/20/2021 Telephone [place] [address] Chiquita James, RN Social History [...] states they have called multiple times to [phone], and been on hold upwards of 45 [...] 04/26/2024 8:30 AM EST Appointment [place] [address] Gavin Carrillo MD [facility] [place] [address] 06/05/2024 1:20 PM EST Office Visit Cardiology at [address] [phone] Milagros Hernandez MD [facility] [place] [address] Scheduled Procedures Name Priority Associated Diagnoses Date/Ti me EGD, UPPER GI ENDOSCOPY (WRV U 2.09) Peptic stricture of esophagus documented as of this encounter Visit Diagnoses Not on filedocumented in this encounter Care Teams Patternmaker Relationship Specialty Start Date End Date Ana Gillespie APRN [address] [place] [address] PCP - General Family Medicine 02/03/19 documented as of this encounter
--- OUTSIDE RECORDS SUMMARY | 2024-04-19 23:03 | XMS_ITS | Encounter Summary ---
[place] [address] Care Team Providers Care Manager Hospital Name Role Phone Ana Gillespie VAUGHN Primary Care Provider [phone] Encounter Details Date Type Department Care Team (Late st Contact Info) Description 07/18/2021 Telephone Gastro[place] [phone] Chiquita James, RN Social History Tobacco Use [...] 04/26/2024 8:30 AM EST Appointment [place] [address] Gavin Carrillo MD [facility] INTERVENTION[place] [address] 06/05/2024 1:20 PM EST Office Visit Cardiology at [address] [phone] Milagros Hernandez MD [facility] [place] [address] Scheduled Procedures Name Priority Associated Diagnoses Date/Ti me EGD, UPPER GI ENDOSCOPY (WRV U 2.09) Peptic stricture of esophagus documented as of this encounter Visit Diagnoses Not on filedocumented in this encounter Care Teams Manager Hospital Relationship Specialty Start Date End Date Ana Gillespie APRN [address] [place] [address] PCP - General Family Medicine 02/03/19 documented as of this encounter
--- OUTSIDE RECORDS SUMMARY | 2024-04-19 23:03 | XMS_ITS | Encounter Summary ---
Author Organization [facility] Address [facility] [place] [address] Care Team Providers Care Fountain Dispenser Name Role Phone David Blue MD Primary Care Provider [phone] Encounter Details Date Type Department Care Team (Late st Contact Info) Description 11/22/2018 11:15 AM EDT - 11/22/2018 11:45 AM EDT [place] [address] David Dejesus MD [facility] [place] [address] EGD WITH BIOPSY (WRVU 2.39) Social History [...] better as expected. Wednesday-Wednesday Same Day Endo [phone] Otherwise contact [phone] and ask to speak to the slot machine key person cotton picker Follow-up care is a fam part of [...] meter kit. 1 each 0 12/14/2014 Insulin [place], Disposable, (BD INSULIN PEN NEEDLE UF MINI) [...] 04/26/2024 8:30 AM [place] [address] Gavin Carrillo MD [facility] [place] [address] 06/05/2024 1:20 PM EST Office Visit Cardiology at [address] [address] Milagros Hernandez MD [facility] [place] [address] Scheduled Procedures Name Priority Associated [...] MD PATHOLOGY/CYTOLOGY ORDERABLES [facility] [place] [address] * Surgical Pathology Report (11/22/2018 12:34 PM EDT) Final Diagnosis [id number] ? Location: 4T; EA06; A The signing [...] Nguyen MD Verified: ??11/23/2018 ?Pathologist Performed at: ??-[facility] Dept. of Pathology, [place], [place] CLINICAL INFORMATION Specimen Submitted: A - [...] MD PATHOLOGY/CYTOLOGY ORDERABLES [facility] [place] [address] * Specimen to Pathology (11/22/2018 12:34 PM EDT) AP Specimen 11/22/2018 12:3 4 PM EDT 11/22/2018 12:34 PM EDT Narrative [facility] - 11/22/2018 12:34 PM EDT Specimen requisition ordered. ??Separate Pathology report to follow David Dejesus MD PATHOLOGY/CYTOLOGY ORDERABLES Performing Organization Address [facility] [place] [address] * Specimen to Pathology (11/22/2018 12:34 PM EDT) AP Specimen 11/22/2018 12:3 4 PM EDT 11/22/2018 12:34 PM EDT Narrative [facility] - 11/22/2018 12:34 PM EDT Specimen requisition ordered. ??Separate Pathology report to follow David Dejesus MD PATHOLOGY/CYTOLOGY ORDERABLES Performing Organization Address [facility] [place] [address] * Specimen to Pathology (11/22/2018 12:34 PM EDT) AP Specimen 11/22/2018 12:3 4 PM EDT 11/22/2018 12:34 PM EDT Narrative [facility] - 11/22/2018 12:34 PM EDT Specimen requisition ordered. ??Separate Pathology report to follow David Dejesus MD PATHOLOGY/CYTOLOGY ORDERABLES Performing Organization Address [facility] [place] [address] * Specimen to Pathology (11/22/2018 12:34 PM EDT) AP Specimen 11/22/2018 12:3 4 PM EDT 11/22/2018 12:34 PM EDT Narrative [facility] - 11/22/2018 12:34 PM EDT Specimen requisition ordered. ??Separate Pathology report to follow David Dejesus MD PATHOLOGY/CYTOLOGY ORDERABLES Performing Organization Address [facility] Co de Phone Number [facility] [place] [address] * UPPER GI ENDOSCOPY (11/22/2018 12:12 PM EDT) Pathologist [facility] UPPER GI ENDOSCOPY [facility] Endoscopy Procedure Date: 11/22/2018 12:12 PM ? Patient Name: Jennifer Irving ? Date of : 1960 ? Age: 58 ? Order #: [id number] ? Instrument Name: [id number] AUGIE ? Procedure: ? Upper GI endoscopy Indications: ? Surveillance for malignancy due to ? 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 David Dejesus MD, Simba ? ERI Augustin, Mercedes Blanchard MD: ?David [...] GENERAL SURGICAL ORD ERABLES Performing Organization Address [facility] de Phone Number PROVATION * (ABNORMAL) POCT Glucose (11/22/2018 10:58 AM EDT) Glucose, POC 277(H) 65 - 199 mg/dL [facility] Comment: Supplemental ranges: <140 mg/dL before meals <180 mg/dL all other times of the day Blood specimen (specimen) 11/22/2018 10:58 AM EDT 11/22/2018 10:58 AM EDT David Dejesus MD POINT OF CARE TEST ORDERABLES Performing Organization Address [facility] de Phone Number [facility] [place] [address] documented in this encounter Visit Diagnoses Not [...] CRNA) documented in this encounter Care Teams Fountain Dispenser Relationship Specialty Start Date End Date David Blue MD [address] [place] [address] PCP - General 04/01/10 02/02/19 documented as of this encounter
--- OUTSIDE RECORDS SUMMARY | 2024-04-19 23:03 | XMS_ITS | Encounter Summary ---
[place] [address] Care Team Providers Care Street Light Repairer Helper Name Role Phone Ana Gillespie VAUGHN Primary Care Provider [phone] Reason for Visit * Reason Onset Date Comments Prior Authorization 09/18/2020 Encounter Details Date Type Department Care Team (Late st Contact Info) Description 09/18/2020 Telephone [place] [address] Francoise Vides CMA GASTROENTEROLOGY DEPT Prior Authorization [...] Prior Authorization 4L Gastroenterology / [place] [address] ?? Subscriber Insurance[place] ?? Phone: . Fax: ? Physician: David Dejesus ? Return ?? Pharmacy: [facility] ? Medication Requested: pantoprazole ?? Strength: 40 mg Frequency: BID ?? Disp.: 180 Refills: 3 ?? Currently taking: n Diagnosis for this medication: Farrell's w/ dysplasia, and GERD ?? ICD-10 code: ?? Prior medications trialed in this patient: Pantoprazole QD, esomperazole, and omeprazole,tums,zantac ? Medication: Outcome/Adverse Reactions: treatment failure ?? Decision: approved Start:09/18/20 End: 09/18/21 ?? Tracking number/Case number/Reference number: [id number] ? documented in this encounter Plan of Treatment Upcoming Encounters Date Type Department Care Team (Late st Contact Info) Description 04/26/2024 8:30 AM [place] [phone] Gavin Carrillo MD [facility] [place] [address] 06/05/2024 1:20 PM EST Office Visit Cardiology at [address] [phone] Milagros Hernandez MD [facility] [place] [address] Scheduled Procedures Name Priority Associated Diagnoses Date/Ti me EGD, UPPER GI ENDOSCOPY (WRV U 2.09) Peptic stricture of esophagus documented as of this encounter Visit Diagnoses Not on filedocumented in this encounter Care Teams Street Light Repairer Helper Relationship Specialty Start Date End Date Ana Gillespie APRN [address] [place] [address] PCP - General Family Medicine 02/03/19 documented as of this encounter
--- OUTSIDE RECORDS SUMMARY | 2024-04-19 23:03 | XMS_ITS | Encounter Summary ---
Author Organization [facility] Address [facility] [place] [address] Care Team Providers Care Friend Of The Court Name Role Phone Ana Gillespie VAUGHN Primary Care Provider [phone] Encounter Details Date Type Department Care Team (Latest Contact Info) Description 03/01/2020 6:57 AM EDT - 03/01/2020 10:26 AM EDT Hospital Encounter Gastroenterology at [facility] [place] [address] David Dejesus MD [facility] [place] [address] Discharge Disposition: Home Social History Tobacco Use [...] the day after the procedure, use an wstn-zic-kzmgjkg spray to numb your throat. Sucking on [...] occurs, please contact your Doctor. Please call [phone] before 8pm Mon-Fri with problems, questions or concerns. If you call after 8pm or on weekends, call the Hospital at [phone] and ask to speak to the Photographic Press Screwmaker software validation engineer and the electric well logging operator will contact that person for you. [...] Where can you learn more? [facility] View your After Visit Summary and more online at [email or web address] If you would like to provide feedback about your hospital experience, please call the Office of Patient and Family Relations at . If you have received this After Visit Summary in error, please immediately return it in person to the department, or notify the [facility] Privacy Office by calling toll free at between the hours of 8AM and 5PM to arrange for our retrieval of the documents at no cost to you. Content Version: 12.2 ?? 4142-8048 [employer]. Care instructions adapted under license by [facility]. If you have questions about a medical condition or this instruction, always ask your healthcare professional. [employer] disclaims any warranty or liability for your [...] occurs, please contact your Doctor. Please call [phone] before 8pm Mon-Fri with problems, questions or concerns. If you call after 8pm or on weekends, call the Hospital at [phone] and ask to speak to the Photographic Press Screwmaker software validation engineer and the electric well logging operator will contact that person for you. When should you call for help? Call 322 anytime you think you may need emergency [...] Where can you learn more? [facility] View your After Visit Summary and more online at [email or web address] If you would like to [...] cost to you. Content Version: 12.2 ?? 0112-7598 [employer]. Care instructions adapted under license by [facility]. If you have questions about a medical condition or this instruction, always ask your healthcare professional. [employer] disclaims any warranty or liability for your [...] meter kit. 1 each 0 12/14/2014 Insulin [place], Disposable, (BD INSULIN PEN NEEDLE UF MINI) [...] ??? GERD (gastroesophageal reflux disease) K21.9 ??? [place]'s esophagus K22.70 ??? T2DM (type 2 diabetes [...] by mouth daily. ??? Blood Sugar Diagnostic (Sharely.Us ULTRA TEST) Strip 1 each by Other [...] meter kit. 1 each 0 ??? Insulin [place], Disposable, (BD INSULIN PEN NEEDLE UF MINI) [...] 04/26/2024 8:30 AM EST [place] [phone] Gavin Carrillo MD [facility] [place] [address] 06/05/2024 1:20 PM EST Office Visit Cardiology at [address] [address] Milagros Hernandez MD [facility] [place] [address] Scheduled Procedures Name Priority Associated Diagnoses Date/Ti [...] 8:42 AM EDT Upper Gi Endoscopy, Biopsy (65419) 03/01/2020 8:36 AM EDT needs egd/colonoscopy for GERD and screening colo rojelio Colonoscopy, Diagnostic ([id number]) 03/01/2020 8:36 AM EDT needs egd/colonoscopy for GERD and screening colo rojelio Upper GI Endoscopy, Diagnostic ([id number]) 03/01/2020 8:36 AM EDT needs egd/colonoscopy for GERD and screening colo rojelio UPPER GI ENDOSCOPY Routine 03/01/2020 7: 47 AM EDT COLONOSCOPY Routine 03/01/2020 7:22 AM EDT documented in this encounter Results * Surgical Pathology Report (03/01/2020 8:42 AM EDT) Final Diagnosis [id number] ? Location: 4T; EA06; A The signing [...] Hill MD Verified: ??03/10/2020 ?Pathologist Performed at: ??-[facility] Dept. of Pathology, [place], [place] SPECIMEN(S) SUBMITTED A - 28 cm, [...] cassette labeled D1. ??sns 03/10/2020 12:01 PM [facility] GI Biopsy 03/01/2020 8:42 AM EDT 03/01/2020 8:42 AM EDT GI Biopsy 03/01/2020 8:42 AM EDT 03/01/2020 8:42 AM EDT GI Biopsy 03/01/2020 8:42 AM EDT 03/01/2020 8:42 AM EDT GI Biopsy 03/01/2020 8:42 AM EDT 03/01/2020 8:42 AM EDT David Dejesus MD PATHOLOGY/CYTOLOGY ORDERABLES Performing Organization Address [facility] [place] [place] [address] * Specimen to Pathology (03/01/2020 8:42 AM EDT) AP Specimen 03/01/2020 8:42 AM EDT 03/01/2020 8:42 AM EDT Narrative [facility] - 03/01/2020 8:42 AM EDT Specimen requisition ordered. ??Separate Pathology report to follow David Dejesus MD PATHOLOGY/CYTOLOGY ORDERABLES Performing Organization Address [facility] Co de Phone Number [facility] [place] [address] * Specimen to Pathology (03/01/2020 8:42 AM EDT) AP Specimen 03/01/2020 8:42 AM EDT 03/01/2020 8:42 AM EDT Narrative [facility] - 03/01/2020 8:42 AM EDT Specimen requisition ordered. ??Separate Pathology report to follow David Dejesus MD PATHOLOGY/CYTOLOGY ORDERABLES Performing Organization Address [facility] Co de Phone Number [facility] [place] [address] * Specimen to Pathology (03/01/2020 8:42 AM EDT) AP Specimen 03/01/2020 8:42 AM EDT 03/01/2020 8:42 AM EDT Narrative [facility] - 03/01/2020 8:42 AM EDT Specimen requisition ordered. ??Separate Pathology report to follow David Dejesus MD PATHOLOGY/CYTOLOGY ORDERABLES Performing Organization Address [facility] Co de Phone Number [facility] [place] [address] * Specimen to Pathology (03/01/2020 8:42 AM EDT) AP Specimen 03/01/2020 8:42 AM EDT 03/01/2020 8:42 AM EDT Narrative [facility] - 03/01/2020 8:42 AM EDT Specimen requisition ordered. ??Separate Pathology report to follow David Dejesus MD PATHOLOGY/CYTOLOGY ORDERABLES Performing Organization Address [facility] [place] [address] * UPPER GI ENDOSCOPY (03/01/2020 7:47 AM EDT) UPPER GI ENDOSCOPY [facility] Endoscopy Procedure Date: 03/01/2020 7:47 AM ? Patient Name: Jennifer Irving ? N: [id number] ? Date of : 1960 ? Age: 59 ? Order #: [id number] ? Instrument Name: [id number] ? Procedure: ? Upper GI endoscopy Indications: [...] * COLONOSCOPY (03/01/2020 7:22 AM EDT) COLONOSCOPY [facility] Endoscopy Procedure Date: 03/01/2020 7:22 AM ? Patient Name: Jennifer Irving ? Date of : 1960 ? Age: 59 ? Order #: [id number] ? Instrument Name: [id number] ? Procedure: ? Colonoscopy Indications: ? Screening [...] CRNA) documented in this encounter Care Teams Friend Of The Court Relationship Specialty Start Date End Date Ana Gillespie APRN [address] [place] [address] PCP - General Family Medicine 02/03/19 documented as of this encounter
--- OUTSIDE RECORDS SUMMARY | 2024-04-19 23:03 | XMS_ITS | Encounter Summary ---
Author Organization [facility] [place] [address] Care Team Providers Care Dividend Deposit Voucher Clerk Name Role Phone David Bleu MD Primary Care Provider [phone] Encounter Details Date Type Department Care Team (Late st Contact Info) Description 10/12/2018 Tele[place] [phone] Mariela Jordan Social History Tobacco Use Types [...] - 10/12/2018 12:11 PM EDT Jennifer Irving [id number] Diagnosis: Farrell's Esophagus 1. Have you ever [...] [] YES [x] NO If Yes send [email or web address] message to [facility] ENDO DEVICE CHECK 4. Are you a [...] NO 11. You must have a responsible democrat stay at the facility during your procedure and drive you home? [x] YES 12. Is there any other information you would like to give us to aid in scheduling? Height: 5'1 Weight: 178 BMI: 33.6 Age:58 y.o. documented in this encounter Plan of Treatment Upcoming Encounters Date Type Department Care Team (Late st Contact Info) Description 04/26/2024 8:30 AM [place] [address] Gavin Carrillo MD [facility] INTERVENTION[place] [address] 06/05/2024 1:20 PM EST Office Visit Cardiology at [address] [phone] Milagros Hernandez MD [facility] [place] [address] Scheduled Procedures Name Priority Associated Diagnoses Date/Ti me EGD, UPPER GI ENDOSCOPY (WRV U 2.09) Peptic stricture of esophagus documented as of this encounter Visit Diagnoses Not on filedocumented in this encounter Care Teams Dividend Deposit Voucher Clerk Relationship Specialty Start Date End Date David Blue MD [address] [place] [address] PCP - General 04/01/10 02/02/19 documented as of this encounter
--- OUTSIDE RECORDS SUMMARY | 2024-04-19 23:03 | XMS_ITS | Encounter Summary ---
Author Organization [facility] [place] [address] Care Team Providers Care Electric Motor Assembler Name Role Phone David Blue MD Primary Care Provider [phone] Encounter Details Date Type Department Care Team (Late Contact Info) Description 07/06/2017 Tele[place] [phone] Ami Mckinnon RN Social History Tobacco Use Types Packs/Day [...] personal issue. Call returned to Jennifer at [phone]. Spoke to Rogelio. Explained that Dr. Dejesus [...] 04/26/2024 8:30 AM [place] [phone] Gavin Carrillo MD [facility] [place] [address] 06/05/2024 1:20 PM EST Office Visit Cardiology at [address] [address] Milagros Hernandez MD [facility] [place] [address] Scheduled Procedures Name Priority Associated Diagnoses Date/Ti me EGD, UPPER GI ENDOSCOPY (WRV U 2.09) Peptic stricture of esophagus documented as of this encounter Visit Diagnoses Not on filedocumented in this encounter Care Teams Electric Motor Assembler Relationship Specialty Start Date End Date David Blue MD [address] [place] [address] PCP - General 04/01/10 02/02/19 documented as of this encounter
--- OUTSIDE RECORDS SUMMARY | 2024-04-19 23:03 | XMS_ITS | Encounter Summary ---
Author Organization [facility] Address [facility] [place] [address] Care Team Providers Care Steel Layout Worker Name Role Phone Ana Gillespie APRN Primary Care Provider [phone] Reason for Visit * Reason Onset Date Comments Medication Refill 07/15/2021 Encounter Details Date Type Department Care Team (Late st Contact Info) Description 07/15/2021 [place] [phone] David Dejesus MD [facility] [place] [address] Gastroesophageal reflux disease with esophagitis without hemorrhage [...] 04/26/2024 8:30 AM [place] [address] Gavin Carrillo MD [facility] [place]ION[place] [address] 06/05/2024 1:20 PM EST Office Visit Cardiology at [address] [address] Milagros Hernandez MD [facility] [place] [address] Scheduled Procedures Name Priority Associated Diagnoses Date/Ti me EGD, UPPER GI ENDOSCOPY (WRV U 2.09) Peptic stricture of esophagus documented as of this encounter Visit Diagnoses Diagnosis Gastroesophageal reflux disease with esophagitis without hemorrhage documented in this encounter Care Teams Steel Layout Worker Relationship Specialty Start Date End Date Ana Gillespie APRN [address] [place] [address] PCP - General Family Medicine 02/03/19 documented as of this encounter
--- OUTSIDE RECORDS SUMMARY | 2024-04-19 23:03 | XMS_ITS | Encounter Summary ---
Author Organization [facility] Address [facility] [place] [address] Care Team Providers Care Cup Setter Lockstitch Name Role Phone Ana Gillespie APRN Primary Care Provider Reason for Visit * Reason Onset Date Comments Medication Refill 09/08/2019 Encounter Details Date Type Department Care Team (Late st Contact Info) Description 09/08/2019 Refill [place] [phone] David Dejesus MD [facility] [place] [address] Social History Tobacco Use Types Packs/Day Years [...] 04/26/2024 8:30 AM EST Appoint[place] [address] Gavin Carrillo MD [facility] [place] [address] 06/05/2024 1:20 PM EST Office Visit Cardiology at [address] [phone] Milagros Hernandez MD [facility] [place] [address] Scheduled Procedures Name Priority Associated Diagnoses Date/Ti me EGD, UPPER GI ENDOSCOPY (WRV U 2.09) Peptic stricture of esophagus documented as of this encounter Visit Diagnoses Not on filedocumented in this encounter Care Teams Cup Setter Lockstitch Relationship Specialty Start Date End Date Ana Gillespie APRN [address] [place] PCP - General Family Medicine 02/03/19 documented as of this encounter
--- OUTSIDE RECORDS SUMMARY | 2024-04-19 23:03 | XMS_ITS | Encounter Summary ---
Author Organization [facility] Address [facility] [place] [address] Care Team Providers Care Back Maker Name Role Phone Ana Gillespie VAUGHN Primary Care Provider [phone] Reason for Referral * Consultation (PJ) - Closed Specialty Diagnoses / Procedures Referred By Contjovani t Referred To Contact Gastroenterology Diagnoses Iron deficiency anemia due to chronic blood loss Procedures needs egd/colonoscopy for GERD and screening colo pj David Dejesus MD [facility] [place] [address] [facility] Endoscopy [address] [place] [address] Referral ID Status Reason Start Date Expiration Date V isits Requested Visits Authorized [id number] Closed Consult, Test & Treat 12/25/2019 12/24/2020 1 1 Encounter Details Date Type Department Care Team (Late st Contact Info) Description 12/25/2019 Orders [place] [address] David Dejesus MD [facility] [place] [address] Iron deficiency anemia due to chronic blood [...] AM [place] [phone] Gavin Carrillo MD [facility] INTERVENTIONAL [place] [address] 06/05/2024 1:20 PM EST Office Visit Cardiology at [address] [phone] Milagros Hernandez MD [facility] [place] [address] Scheduled Procedures Name Priority Associated Diagnoses Date/Ti [...] (chronic) documented in this encounter Care Teams Back Maker Relationship Specialty Start Date End Date Ana Gillespie APRN [address] [place] [address] PCP - General Family Medicine 02/03/19 documented as of this encounter
--- OUTSIDE RECORDS SUMMARY | 2024-04-19 23:03 | XMS_ITS | Encounter Summary ---
Author Organization [facility] Address [facility] [place] [address] Care Team Providers Care Probe Operator Name Role Phone Ana Gillespie APRN Primary Care Provider [phone] Reason for Visit * Reason Onset Date Comments Medication Refill 09/17/2020 Encounter Details Date Type Department Care Team (Late st Contact Info) Description 09/17/2020 [place] [phone] David Dejesus MD [facility] [place] [address] Social History Tobacco Use Types Packs/Day Years [...] 04/26/2024 8:30 AM [place] [address] Gavin Carrillo MD [facility] INTER[place]ION[place] [address] 06/05/2024 1:20 PM EST Office Visit Cardiology at [address] [phone] Milagros Hernandez MD [facility] [place] [address] Scheduled Procedures Name Priority Associated Diagnoses Date/Ti me EGD, UPPER GI ENDOSCOPY (WRV U 2.09) Peptic stricture of esophagus documented as of this encounter Visit Diagnoses Not on filedocumented in this encounter Care Teams Probe Operator Relationship Specialty Start Date End Date Ana Gillespie APRN [address] [place] [address] PCP - General Family Medicine 02/03/19 documented as of this encounter
--- OUTSIDE RECORDS SUMMARY | 2024-04-19 23:03 | XMS_ITS | Encounter Summary ---
Author Organization [facility] Address [facility] [place] [address] Care Team Providers Care Systems Integration Analyst Name Role Phone Ana Gillespie APRN Primary Care Provider [phone] Reason for Visit * Reason Onset Date Comments Medication Refill 11/13/2019 Encounter Details Date Type Department Care Team (Late st Contact Info) Description 11/13/2019 Refill Gastroenterology at [place] [phone] David Dejesus MD [facility] [place] [address] Social History Tobacco Use Types Packs/Day Years [...] 04/26/2024 8:30 AM EST [place] [address] Gavin Carrillo MD [facility] [place] [address] 06/05/2024 1:20 PM EST Office Visit Cardiology at [address] [phone] Milagros Hernandez MD [facility] [place] [address] Scheduled Procedures Name Priority Associated Diagnoses Date/Ti me EGD, UPPER GI ENDOSCOPY (WRV U 2.09) Peptic stricture of esophagus documented as of this encounter Visit Diagnoses Not on filedocumented in this encounter Care Teams Systems Integration Analyst Relationship Specialty Start Date End Date Ana Gillespie APRN [address] [place] [address] PCP - General Family Medicine 02/03/19 documented as of this encounter
--- OUTSIDE RECORDS SUMMARY | 2024-04-19 23:03 | XMS_ITS | Encounter Summary ---
Author Organization [facility] [place] [address] Care Team Providers Care Location Man Name Role Phone David Blue MD Primary Care Provider [phone] Encounter Details Date Type Department Care Team (Late st Contact Info) Description 04/30/2016 Orders [place] [phone] [facility] [place] [address] Visit for screening mammogram Social History Tobacco [...] 04/26/2024 8:30 AM [place] [address] [facility] [place] [address] 06/05/2024 1:20 PM EST Office Visit Cardiology at [address] [phone] [facility] [place] [address] Scheduled Procedures Name Priority Associated Diagnoses Date/Ti me EGD, UPPER GI ENDOSCOPY (WRV U 2.09) Peptic stricture of esophagus documented as of this encounter Visit Diagnoses Diagnosis Visit for screening mammogram Other screening mammogram documented in this encounter Care Teams Location Man Relationship Specialty Start Date End Date David Blue MD [address] [place] [address] PCP - General 04/01/10 02/02/19 documented as of this encounter
--- OUTSIDE RECORDS SUMMARY | 2024-04-19 23:03 | XMS_ITS | Encounter Summary ---
Author Organization [facility] Address [facility] [place] [address] Care Team Providers Care Overhead Crane Truck Loader Name Role Phone David Blue MD Primary Care Provider [phone] Encounter Details Date Type Department Care Team (Late st Contact Info) Description 06/22/2018 Telephone [place] [address] Erin Lynn Social History Tobacco Use Types [...] 04/26/2024 8:30 AM EST [place] [address] Gavin Carrillo MD [facility] DR INTERVENTIONAL [place] [address] 06/05/2024 1:20 PM EST Office Visit Cardiology at [address] [phone] Milagros Hernandez MD [facility] [place] [address] Scheduled Procedures Name Priority Associated Diagnoses Date/Ti me EGD, UPPER GI ENDOSCOPY (WRV U 2.09) Peptic stricture of esophagus documented as of this encounter Visit Diagnoses Not on filedocumented in this encounter Care Teams Overhead Crane Truck Loader Relationship Specialty Start Date End Date David Blue MD [address] [place] [address] PCP - General 04/01/10 02/02/19 documented as of this encounter
--- OUTSIDE RECORDS SUMMARY | 2024-04-19 23:03 | XMS_ITS | Encounter Summary ---
Author Organization [facility] [place] [address] Care Team Providers Care Artificial Cherry Maker Name Role Phone Ana Gillespie VAUGHN Primary Care Provider [phone] Encounter Details Date Type Department Care Team (Late st Contact Info) Description 07/07/2021 Telephone [place] [phone] Ting Patton Social History Tobacco Use Types [...] 04/26/2024 8:30 AM EST [place] [phone] Gavin Carrillo MD [facility] [place] [address] 06/05/2024 1:20 PM EST Office Visit Cardiology at [address] [address] Milagros Hernandez MD [facility] [place] [address] Scheduled Procedures Name Priority Associated Diagnoses Date/Ti me EGD, UPPER GI ENDOSCOPY (WRV U 2.09) Peptic stricture of esophagus documented as of this encounter Visit Diagnoses Not on filedocumented in this encounter Care Teams Artificial Cherry Maker Relationship Specialty Start Date End Date Ana Gillespie APRN [address] [place] [address] PCP - General Family Medicine 02/03/19 documented as of this encounter
--- OUTSIDE RECORDS SUMMARY | 2024-04-19 23:03 | XMS_ITS | Encounter Summary ---
Author Organization [facility] Address [facility] [place] [address] Care Team Providers Care Commercial Intern Name Role Phone Ana Gillespie VAUGHN Primary Care Provider [phone] Reason for Visit * Auth/Cert Specialty Diagnoses / Procedures Referred By Esperanza rodríguez Referred To Contact Diagnoses esophagitis - please schedule in mid August Procedures PRO UPPER GI ENDOSCOPY, DIAGNOSTIC EGD, UPPER GI ENDOSCOPY Referral ID Status Reason Start Date Expiration Date Visits Re quested Visits Authorized [id number] 1 1 Encounter Details Date Type Department Care Team (Latest Contact Info) Description 09/09/2021 1:21 PM EDT - 09/09/2021 9:08 PM EDT Hospital En[place] [address] David Dejesus MD [facility] [place] [address] Discharge Disposition: Home Social History Tobacco Use [...] meter kit. 1 each 0 12/14/2014 Insulin [place], Disposable, (BD INSULIN PEN NEEDLE UF MINI) [...] 04/26/2024 8:30 AM [place] [phone] Gavin Carrillo MD [facility] [place] [address] 06/05/2024 1:20 PM EST Office Visit Cardiology at [address] [phone] Milagros Hernandez MD [facility] [place] [address] Scheduled Procedures Name Priority Associated Diagnoses Date/Ti me EGD, UPPER GI ENDOSCOPY (WRV U 2.09) Peptic stricture of esophagus documented as of this encounter Visit Diagnoses Not on filedocumented in this encounter Care Teams Commercial Intern Relationship Specialty Start Date End Date Ana Gillespie APRN [address] [place] [address] PCP - General Family Medicine 02/03/19 documented as of this encounter
--- OUTSIDE RECORDS SUMMARY | 2024-04-19 23:03 | XMS_ITS | Encounter Summary ---
Author Organization [facility] Address [facility] [place] [address] Care Team Providers Care Foundry Equipment Mechanic Name Role Phone David Blue MD Primary Care Provider [phone] Encounter Details Date Type Department Care Team (Latest Contact Info) Description 11/22/2018 10:02 AM EDT - 11/22/2018 1:36 PM EDT Hospital Encounter [place] [address] David Dejesus MD [facility] [place] [address] Discharge Disposition: Home Social History Tobacco Use [...] better as expected. Wednesday-Wednesday Same Day Endo [phone] Otherwise contact [phone] and ask to speak to the cartridge assembling machine adjuster fashion supervisor Follow-up care is a fam part [...] meter kit. 1 each 0 12/14/2014 Insulin [place], Disposable, (BD INSULIN PEN NEEDLE UF MINI) [...] 04/26/2024 8:30 AM EST [place] [address] Gavin Carrillo MD [facility] [address] [place] [address] 06/05/2024 1:20 PM EST Office Visit Cardiology at [address] [address] Milagros Hernandez MD [facility] [place] [place] [address] Scheduled Procedures Name Priority Associated [...] 3 PM EDT 11/22/2018 12:43 PM EDT [facility] LABORATORY - 11/22/2018 12:43 PM EDT Specimen requisition ordered. ??Separate Pathology report to follow David Dejesus MD PATHOLOGY/CYTOLOGY ORDERABLES [facility] [place] [address] * Surgical Pathology Report (11/22/2018 12:34 PM EDT) Final Diagnosis [id number] ? Location: 4T; EA06; A The signing [...] Verified: ??11/23/2018 ?Pathologist Performed at: ??-[facility] [place], [place], [place] CLINICAL INFORMATION Specimen Submitted: A - [...] labeled E1. ??shb 11/23/2018 2:35 PM EDT [facility] GI Biopsy 11/22/2018 12:3 4 PM EDT 11/22/2018 12:34 PM EDT GI Biopsy 11/22/2018 12:3 4 PM EDT 11/22/2018 12:34 PM EDT GI Biopsy 11/22/2018 12:3 4 PM EDT 11/22/2018 12:34 PM EDT GI Biopsy 11/22/2018 12:3 4 PM EDT 11/22/2018 12:34 PM EDT GI Biopsy 11/22/2018 12:3 4 PM EDT 11/22/2018 12:34 PM EDT David Dejesus MD PATHOLOGY/CYTOLOGY ORDERABLES [facility] [place] [address] * Specimen to Pathology (11/22/2018 12:34 PM EDT) AP Specimen 11/22/2018 12:3 4 PM EDT 11/22/2018 12:34 PM EDT Narrative [facility] - 11/22/2018 12:34 PM EDT Specimen requisition ordered. ??Separate Pathology report to follow David Dejesus MD PATHOLOGY/CYTOLOGY ORDERABLES Performing Organization Address [facility]/[place] [address] * Specimen to Pathology (11/22/2018 12:34 PM EDT) AP Specimen 11/22/2018 12:3 4 PM EDT 11/22/2018 12:34 PM EDT Narrative [facility] - 11/22/2018 12:34 PM EDT Specimen requisition ordered. ??Separate Pathology report to follow David Dejesus MD PATHOLOGY/CYTOLOGY ORDERABLES Performing Organization Address [facility] [place] [place] [address] * Specimen to Pathology (11/22/2018 12:34 PM EDT) AP Specimen 11/22/2018 12:3 4 PM EDT 11/22/2018 12:34 PM EDT Narrative [facility] - 11/22/2018 12:34 PM EDT Specimen requisition ordered. ??Separate Pathology report to follow David Dejesus MD PATHOLOGY/CYTOLOGY ORDERABLES Performing Organization Address [facility] [place] [place] [address] * Specimen to Pathology (11/22/2018 12:34 PM EDT) AP Specimen 11/22/2018 12:3 4 PM EDT 11/22/2018 12:34 PM EDT Narrative [facility] - 11/22/2018 12:34 PM EDT Specimen requisition ordered. ??Separate Pathology report to follow David Dejesus MD PATHOLOGY/CYTOLOGY ORDERABLES Performing Organization Address [facility]/[place] [address] * UPPER GI ENDOSCOPY (11/22/2018 12:12 PM EDT) UPPER GI ENDOSCOPY [facility] Endoscopy Procedure Date: 11/22/2018 12:12 PM ? Patient Name: Jennifer Irving ? Date of : 1960 ? Age: 58 ? Order #: [id number] ? Instrument Name: [id number] AUGIE ? Procedure: ? Upper GI endoscopy Indications: ? Surveillance for malignancy due to ? 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 David Dejesus MD, Simba ? Charli, ERI, Mercedes Quintanilla Referring : ?David Blue MD Medicines: ? [...] GENERAL SURGICAL ORD ERABLES Performing Organization Address [facility] de Phone Number PROVATION * (ABNORMAL) POCT Glucose (11/22/2018 10:58 AM EDT) Glucose, POC 277(H) 65 - 199 mg/dL [facility] Comment: Supplemental ranges: <140 mg/dL before meals <180 mg/dL all other times of the day Blood specimen (specimen) 11/22/2018 10:58 AM EDT 11/22/2018 10:58 AM EDT David Dejesus MD POINT OF CARE TEST ORDERABLES Performing Organization Address [facility] de Phone Number [facility] [place] [address] documented in this encounter Visit Diagnoses Not [...] CRNA) documented in this encounter Care Teams Foundry Equipment Mechanic Relationship Specialty Start Date End Date David Blue MD [address] [place] [address] PCP - General 04/01/10 02/02/19 documented as of this encounter
--- OUTSIDE RECORDS SUMMARY | 2024-04-19 23:03 | XMS_ITS | Encounter Summary ---
Author Organization [facility] Address [facility] [place] [address] Care Team Providers Care Frequency Checker Name Role Phone Ana Gillespie VAUGHN Primary Care Provider [phone] Reason for Referral * Consultation (Routine) - Duplicate Referral Specialty Diagnoses / Procedures Referred By Esperanza rodríguez Referred To Contact Gastroenterology Diagnoses Functional diarrhea David Dejesus MD [facility] [place] [address] [facility] Endoscopy [address] [place] [phone] Referral ID Status Reason Start Date Expiration Date Visits Requested Visits Authorized [id number] Duplicate Referral Consult, Test & Treat 10/16/2019 10/15/2020 1 1 Encounter Details Date Type Department Care Team ([facility] Contact Info) Description 10/16/2019 Orders [place] [address] David Dejesus MD [facility] [place] [address] Functional diarrhea Social History Tobacco Use Types [...] 04/26/2024 8:30 AM [place] [phone] Gavin Carrillo MD [facility] [place] [address] 06/05/2024 1:20 PM EST Office Visit Cardiology at [address] [address] Milagros Hernandez MD [facility] [address] Scheduled Procedures Name Priority Associated Diagnoses Date/Ti me EGD, UPPER GI ENDOSCOPY (WRV U 2.09) Peptic stricture of esophagus Scheduled Referrals Name Type Priority Associated Diagnoses Order Schedule Referral to Gastroenterology Outpatient Referral Routine Functional diarrhea Ordered: 10/16/2019 documented as of this encounter Visit Diagnoses Diagnosis Functional diarrhea documented in this encounter Care Teams Frequency Checker Relationship Specialty Start Date End Date Ana Gillespie APRN [address] [place] [address] PCP - General Family Medicine 02/03/19 documented as of this encounter
--- OUTSIDE RECORDS SUMMARY | 2024-04-19 23:03 | XMS_ITS | Encounter Summary ---
Author Organization [facility] Address [facility] [place] [address] Care Team Providers Care Cadence Specialists Name Role Phone Ana Gillespie VAUGHN Primary Care Provider [phone] Encounter Details Date Type Department Care Team (Late st Contact Info) Description 12/28/2019 Tele[place] [address] Rober Tobin Social History Tobacco [...] AM [place] [address] Gavin Carrillo MD [facility] [place]ION[place] [address] 06/05/2024 1:20 PM EST Office Visit Cardiology at [address] [address] Milagros Hernandez MD [facility] [place] [address] Scheduled Procedures Name Priority Associated Diagnoses Date/Ti me EGD, UPPER GI ENDOSCOPY (WRV U 2.09) Peptic stricture of esophagus documented as of this encounter Visit Diagnoses Not on filedocumented in this encounter Care Teams Cadence Specialists Relationship Specialty Start Date End Date Ana Gillespie APRN [address] [place] [address] PCP - General Family Medicine 02/03/19 documented as of this encounter
--- OUTSIDE RECORDS SUMMARY | 2024-04-19 23:03 | XMS_ITS | Encounter Summary ---
Author Organization [facility] [place] [address] Care Team Providers Care Manager Sharepoint Name Role Phone David Blue MD Primary Care Provider [phone] Encounter Details Date Type Department Care Team (Late Contact Info) Description 03/31/2016 Telephone [place] [phone] Francoise Vides CMA GASTROENTEROLOGY DEPT Social History [...] 04/26/2024 8:30 AM EST [place] [phone] Gavin Carrillo MD [facility] [place] [address] 06/05/2024 1:20 PM EST Office Visit Cardiology at [address] [address] Milagros Hernandez MD [facility] [place] [address] Scheduled Procedures Name Priority Associated Diagnoses Date/Ti me EGD, UPPER GI ENDOSCOPY (WRV U 2.09) Peptic stricture of esophagus documented as of this encounter Visit Diagnoses Not on filedocumented in this encounter Care Teams Manager Sharepoint Relationship Specialty Start Date End Date David Blue MD [address] [place] [address] PCP - General 04/01/10 02/02/19 documented as of this encounter
--- OUTSIDE RECORDS SUMMARY | 2024-04-19 23:03 | XMS_ITS | Encounter Summary ---
Author Organization [facility] Address [facility] [place] [address] Care Team Providers Care Parimutuel Ticket Cashier Name Role Phone Ana Gillespie VAUGHN Primary Care Provider [phone] Encounter Details Date Type Department Care Team (Late st Contact Info) Description 03/01/2020 8:30 AM EDT - 03/01/2020 9:30 AM EDT Surgery Gastroenterology at [facility] [place] [address] David Dejesus MD [facility] [place] [address] EGD, UPPER GI ENDOSCOPY (WRVU 2.09) Social [...] the day after the procedure, use an remm-lqz-yccyrcr spray to numb your throat. Sucking on [...] occurs, please contact your Doctor. Please call [phone] before 8pm Mon-Fri with problems, questions or concerns. If you call after 8pm or on weekends, call the Hospital at [phone] and ask to speak to the Pulp Machine Operator job honer and the continuous miner operator will contact that person for you. When should you call for help? Call [phone] anytime you think you may need emergency [...] any problems. Where can you learn more? [facility] View your After Visit Summary and more online at [email or web address] If you would like to provide feedback about your hospital experience, please call the Office of Patient and Family Relations at . If you have received this After Visit Summary in error, please immediately return it in person to the department, or notify the [facility] Privacy Office by calling toll free at between the hours of 8AM and 5PM to arrange for our retrieval of the documents at no cost to you. Content Version: 12.2 ?? 9020-3944 [employer]. Care instructions adapted under license by [facility]. If you have questions about a medical condition or this instruction, always ask your healthcare professional. [employer] disclaims any warranty or liability for your [...] occurs, please contact your Doctor. Please call [phone] before 8pm Mon-Fri with problems, questions or concerns. If you call after 8pm or on weekends, call the Hospital at [phone] and ask to speak to the Pulp Machine Operator job honer and the continuous miner operator will contact that person for you. When should you call for help? Call [phone] anytime you think you may need emergency [...] any problems. Where can you learn more? [facility] View your After Visit Summary and [...] cost to you. Content Version: 12.2 ?? 7160-6984 [employer]. Care instructions adapted under license by [facility]. If you have questions about a medical condition or this instruction, always ask your healthcare professional. [employer] disclaims any warranty or liability for your [...] meter kit. 1 each 0 12/14/2014 Insulin [place], Disposable, (BD INSULIN PEN NEEDLE UF MINI) [...] meter kit. 1 each 0 ??? Insulin [place], Disposable, (BD INSULIN PEN NEEDLE UF MINI) 31 x 3/16 Needle 1 Device by [facility] [...] 04/26/2024 8:30 AM EST [place] [address] Gavin Carrillo MD [facility] [place] [address] 06/05/2024 1:20 PM EST Office Visit Cardiology at [address] [address] Milagros Hernandez MD [facility] [address] Scheduled Procedures Name Priority Associated Diagnoses Date/Ti [...] 8:42 AM EDT Upper Gi Endoscopy, Biopsy (85218) 03/01/2020 8:36 AM EDT needs egd/colonoscopy for GERD and screening colo rojelio Colonoscopy, Diagnostic (29193) 03/01/2020 8:36 AM EDT needs egd/colonoscopy for GERD and screening colo rojelio Upper GI Endoscopy, Diagnostic (99213) 03/01/2020 8:36 AM EDT needs egd/colonoscopy for GERD and screening colo rojelio UPPER GI ENDOSCOPY Routine 03/01/2020 7: 47 AM EDT COLONOSCOPY Routine 03/01/2020 7:22 AM EDT documented in this encounter Results * Surgical Pathology Report (03/01/2020 8:42 AM EDT) Final Diagnosis [id number] ? Location: 4T; EA06; A The signing [...] Verified: ??03/10/2020 ?Pathologist Performed at: ??-[facility] [place], [place], [place] SPECIMEN(S) SUBMITTED A - 28 cm, [...] cassette labeled D1. ??sns 03/10/2020 12:01 PM [facility] GI Biopsy 03/01/2020 8:42 AM EDT 03/01/2020 8:42 AM EDT GI Biopsy 03/01/2020 8:42 AM EDT 03/01/2020 8:42 AM EDT GI Biopsy 03/01/2020 8:42 AM EDT 03/01/2020 8:42 AM EDT GI Biopsy 03/01/2020 8:42 AM EDT 03/01/2020 8:42 AM EDT David Dejesus MD PATHOLOGY/CYTOLOGY ORDERABLES Performing Organization Address [facility] Co de Phone Number [facility] [place] [address] * Specimen to Pathology (03/01/2020 8:42 AM EDT) AP Specimen 03/01/2020 8:42 AM EDT 03/01/2020 8:42 AM EDT Narrative [facility] - 03/01/2020 8:42 AM EDT Specimen requisition ordered. ??Separate Pathology report to follow David Dejesus MD PATHOLOGY/CYTOLOGY ORDERABLES Performing Organization Address [facility] Co de Phone Number [facility] [place] [address] * Specimen to Pathology (03/01/2020 8:42 AM EDT) AP Specimen 03/01/2020 8:42 AM EDT 03/01/2020 8:42 AM EDT Narrative [facility] - 03/01/2020 8:42 AM EDT Specimen requisition ordered. ??Separate Pathology report to follow David Dejesus MD PATHOLOGY/CYTOLOGY ORDERABLES Performing Organization Address [facility] Co de Phone Number [facility] [place] [address] * Specimen to Pathology (03/01/2020 8:42 AM EDT) AP Specimen 03/01/2020 8:42 AM EDT 03/01/2020 8:42 AM EDT Narrative [facility] - 03/01/2020 8:42 AM EDT Specimen requisition ordered. ??Separate Pathology report to follow David Dejesus MD PATHOLOGY/CYTOLOGY ORDERABLES Performing Organization Address [facility] Co de Phone Number [facility] [place] [address] * Specimen to Pathology (03/01/2020 8:42 AM EDT) AP Specimen 03/01/2020 8:42 AM EDT 03/01/2020 8:42 AM EDT Narrative [facility] - 03/01/2020 8:42 AM EDT Specimen requisition ordered. ??Separate Pathology report to follow David Dejesus MD PATHOLOGY/CYTOLOGY ORDERABLES Performing Organization Address [facility] [place] [address] * UPPER GI ENDOSCOPY (03/01/2020 7:47 AM EDT) UPPER GI ENDOSCOPY [facility] Endoscopy Procedure Date: 03/01/2020 7:47 AM ? Patient Name: Jennifer Irving ? N: [id number] ? Date of : 1960 ? Age: 59 ? Order #: [id number] ? Instrument Name: [id number] ? Procedure: ? Upper GI endoscopy Indications: [...] COLONOSCOPY (03/01/2020 7:22 AM EDT) COLONOSCOPY [facility] Endoscopy Procedure Date: 03/01/2020 7:22 AM ? Patient Name: Jennifer Irving ? Date of : 1960 ? Age: 59 ? Order #: [id number] ? Instrument Name: [id number] ? Procedure: ? Colonoscopy Indications: ? Screening [...] CRNA) documented in this encounter Care Teams Parimutuel Ticket Cashier Relationship Specialty Start Date End Date Ana Gillespie APRN [address] [place] [address] PCP - General Family Medicine 02/03/19 documented as of this encounter
--- OUTSIDE RECORDS SUMMARY | 2024-04-19 23:03 | XMS_ITS | Encounter Summary ---
[place] [address] Care Team Providers Care Discount Clerk Name Role Phone David Blue MD Primary Care Provider [phone] Reason for Visit * Reason Onset Date Comments Prior Authorization 09/22/2017 Encounter Details Date Type Department Care Team (Late st Contact Info) Description 09/22/2017 Telephone [place] [address] Francoise Vides CMA GASTROENTEROLOGY DEPT Prior Authorization [...] Prior Authorization 4L Gastroenterology / [place] [address] Subscriber Insurance: [place] Medicaid Phone: . Fax: Physician: David Dejesus Return Pharmacy: [facility] Medication Requested: pantoprazole Strength: 40 mg Frequency: BID Disp.: 180 Refills: 3 Currently taking: no Diagnosis for this medication: Farrell's w/ dysplasia, and GERD ICD-10 code: Prior medications trialed in this patient: Pantoprazole QD, esomperazole, and omeprazole Medication: Outcome/Adverse Reactions: treatment failure Decision: approved Tracking number/Case number/Reference number: [id number] Effective date: Start: 09/22/2017 End: 09/22/2018 documented in this encounter Plan of Treatment Upcoming Encounters Date Type Department Care Team (Late st Contact Info) Description 04/26/2024 8:30 AM EST Appointment [place] [address] Gavin Carrillo MD [facility] [place] [address] 06/05/2024 1:20 PM EST Office Visit Cardiology at [address] [address] Milagros Hernandez MD [facility] [place] [address] Scheduled Procedures Name Priority Associated Diagnoses Date/Ti me EGD, UPPER GI ENDOSCOPY (WRV U 2.09) Peptic stricture of esophagus documented as of this encounter Visit Diagnoses Not on filedocumented in this encounter Care Teams Discount Clerk Relationship Specialty Start Date End Date David Blue MD [address] [place] [address] PCP - General 04/01/10 02/02/19 documented as of this encounter
--- OUTSIDE RECORDS SUMMARY | 2024-04-19 23:03 | XMS_ITS | Encounter Summary ---
Author Organization [facility] Address [facility] [place] [address] Care Team Providers Care Java Oracle Developer Name Role Phone David Blue MD Primary Care Provider [phone] Reason for Visit * Reason Onset Date Comments Medication Refill 09/26/2018 Encounter Details Date Type Department Care Team (Late st Contact Info) Description 09/26/2018 Refill Gastroenterology at [place] [phone] Francoise Vides CMA GASTROENTEROLOGY DEPT Social History [...] 04/26/2024 8:30 AM EST Appointment Radiology at [place] [phone] Gavin Carrillo MD [facility] [place] [address] 06/05/2024 1:20 PM EST Office Visit Cardiology at [place] [phone] Milagros Hernandez MD [facility] [place] [address] Scheduled Procedures Name Priority Associated Diagnoses Date/Ti me EGD, UPPER GI ENDOSCOPY (WRV U 2.09) Peptic stricture of esophagus documented as of this encounter Visit Diagnoses Not on filedocumented in this encounter Care Teams Java Oracle Developer Relationship Specialty Start Date End Date David Blue MD [address] [place] [address] PCP - General 04/01/10 02/02/19 documented as of this encounter
--- OUTSIDE RECORDS SUMMARY | 2024-04-19 23:03 | XMS_ITS | Encounter Summary ---
Author Organization [facility] Address [facility] [place] [address] Care Team Providers Care Ferryboat Pilot Name Role Phone David Blue MD Primary Care Provider [phone] Encounter Details Date Type Department Care Team (Late st Contact Info) Description 03/02/2018 Orders Only Gastroenterology at [place] [phone] David Dejesus MD [facility] [place] [address] Breast cancer screening Social History Tobacco Use [...] 04/26/2024 8:30 AM EST [place] [address] Gavin Carrillo MD [facility] [place] [address] 06/05/2024 1:20 PM EST Office Visit Cardiology at [address] [address] Milagros Hernandez MD [facility] [place] [address] Scheduled Procedures Name Priority Associated Diagnoses Date/Ti me EGD, UPPER GI ENDOSCOPY (WRV U 2.09) Peptic stricture of esophagus documented as of this encounter Visit Diagnoses Diagnosis Breast cancer screening Breast screening, unspecified documented in this encounter Care Teams Ferryboat Pilot Relationship Specialty Start Date End Date David Blue MD [address] [place] [address] PCP - General 04/01/10 02/02/19 documented as of this encounter
--- OUTSIDE RECORDS SUMMARY | 2024-04-19 23:03 | XMS_ITS | Encounter Summary ---
Author Organization [facility] [place] [address] Care Team Providers Care Line Service Attendant Name Role Phone Ana Gillespie APRN Primary Care Provider [phone] Encounter Details Date Type Department Care Team (Late st Contact Info) Description 08/04/2021 Orders [place] [phone] David Dejesus MD [facility] [place] [address] Social History Tobacco Use Types Packs/Day Years [...] 04/26/2024 8:30 AM EST [place] [address] Gavin Carrillo MD [facility] [place] [address] 06/05/2024 1:20 PM EST Office Visit Cardiology at [address] [address] Milagros Hernandez MD [facility] [place] [address] Scheduled Procedures Name Priority Associated Diagnoses Date/Ti me EGD, UPPER GI ENDOSCOPY (WRV U 2.09) Peptic stricture of esophagus documented as of this encounter Visit Diagnoses Not on filedocumented in this encounter Care Teams Line Service Attendant Relationship Specialty Start Date End Date Ana Gillespie APRN [address] [place] [address] PCP - General Family Medicine 02/03/19 documented as of this encounter
--- OUTSIDE RECORDS SUMMARY | 2024-04-19 23:03 | XMS_ITS | Encounter Summary ---
Author Organization [facility] [place] [address] Care Team Providers Care Customer Pricing Manager Name Role Phone David Blue MD Primary Care Provider [phone] Encounter Details Date Type Department Care Team (Late st Contact Info) Description 09/21/2017 Telephone [place] [address] Ami Mckinnon RN Social History Tobacco Use [...] 04/26/2024 8:30 AM EST Appointment [place] [address] Gavin Carrillo MD [facility] DR INTERVENTION[place] [address] 06/05/2024 1:20 PM EST Office Visit Cardiology at [address] [phone] Milagros Hernandez MD [facility] [place] [address] Scheduled Procedures Name Priority Associated Diagnoses Date/Ti me EGD, UPPER GI ENDOSCOPY (WRV U 2.09) Peptic stricture of esophagus documented as of this encounter Visit Diagnoses Not on filedocumented in this encounter Care Teams Customer Pricing Manager Relationship Specialty Start Date End Date David Blue MD [address] [place] [address] PCP - General 04/01/10 02/02/19 documented as of this encounter
--- OUTSIDE RECORDS SUMMARY | 2024-04-19 23:03 | XMS_ITS | Encounter Summary ---
[place] [address] Care Team Providers Care Service Car Operator Name Role Phone David Blue MD Primary Care Provider + [phone] Reason for Visit * Reason Onset Date Comments Medication Refill 09/20/2018 Encounter Details Date Type Department Care Team (Late Contact Info) Description 09/20/2018 Telephone [place] [address] Francoise Vides CMA GASTROENTEROLOGY DEPT [...] 04/26/2024 8:30 AM [place] [address] Gavin Carrillo MD [facility] [place] [address] 06/05/2024 1:20 PM EST Office Visit Cardiology at [address] [phone] Milagros Hernandez MD [facility] [place] [address] Scheduled Procedures Name Priority Associated Diagnoses Date/Ti me EGD, UPPER GI ENDOSCOPY (WRV U 2.09) Peptic stricture of esophagus documented as of this encounter Visit Diagnoses Not on filedocumented in this encounter Care Teams Service Car Operator Relationship Specialty Start Date End Date David Blue MD [address] [place] [address] PCP - General 04/01/10 02/02/19 documented as of this encounter
--- OUTSIDE RECORDS SUMMARY | 2024-04-19 23:03 | XMS_ITS | Encounter Summary ---
Author Organization [facility] Address [facility] [place] [address] Care Team Providers Care Delivery Agent Name Role Phone David Blue MD Primary Care Provider + [phone] Encounter Details Date Type Department Care Team (Late st Contact Info) Description 11/22/2018 12:20 PM EDT Anesthesia [place] [address] Keyana Short MD [facility] [place] [address] Alexandrea Wang CRNA [facility] [place] [address] Anesthesia Record Procedure Summary Procedure Name Responsible Anesthesiologist Anesthesia Start Time Anesthesia Stop Time EGD WITH BIOPSY (WRVU 2.39) (Trunk) Keyana Short MD 11/22/18 1220 11/22/18 1253 Events Date Time Event Comment 11/22/2018 1218 1220 AN Verify 1220 Start 1220 An Start Data 1223 Break/Relief In MARIA DE JESUS A ST C YR, EX ASSISTANT/PROGRAM DIRECTOR 1225 An Induction 1227 Anesthesia Ready 1228 [...] basilic vein (medial side of arm), right; oexd-aub-gaamyh catheter system; 20 gauge; Gertrudis Cintron RN; [...] Procedure Summary Date: 11/22/18 Room / Location: [facility] 2 / [facility]COPY Anesthesia Start: 1220 Anesthesia Stop: 1253 Procedure: EGD WITH BIOPSY (WRVU 2.49) (N/A Trunk) Diagnosis: (Farrell's esophagus) (proclear) Surgeon: David Dejesus MD Responsible Provider: Keyana [place] MD Anesthesia Type: MAC ASA Status: 2 All Anesthesia Providers: Anesthesiologist: Keyana Short MD EX ASSISTANT/PROGRAM DIRECTOR: Alexandrea Wang CRNA Vitals Value Taken Time BP 135/62 11/22/2018 1:20 PM Temp Pulse Resp SpO2 95 % 11/22/2018 1:30 PM Pain Level 0 11/22/2018 1:30 PM Patient Location: PACU/[facility] Level of Consciousness: Awake and Alert [...] performed by David Dejesus MD at [facility] ENDOSCOPY ??? PRO UPPER GI ENDOSCOPY, BIOPSY N/A 04/03/2014 UPPER GASTROINTESTINAL ENDOSCOPY,WITH BIOPSY SINGLE OR MULTIPLE performed by David Dejesus MDat [facility] ENDOSCOPY ??? PRO UPPER GI ENDOSCOPY, BIOPSY N/A 03/20/2016 EGD WITH BIOPSY performed by David Dejesus MD at [facility] ENDOSCOPY ??? PRO UPPER GI ENDOSCOPY, DIAGNOSTIC N/A 04/03/2014 EGD, UPPER GI ENDOSCOPY performed by David Dejesus MD at [facility] ENDOS[facility] Social History Tobacco Use ??? Smoking [...] 04/26/2024 8:30 AM EST [place] [address] Gavin Carrillo MD [facility] [place] [address] 06/05/2024 1:20 PM EST Office Visit Cardiology at [address] [address] Milagros Hernandez MD [facility] [place] [address] Scheduled Procedures Name Priority Associated Diagnoses Date/Ti [...] hr documented in this encounter Care Teams Delivery Agent Relationship Specialty Start Date End Date David Blue MD [address] [place] [address] PCP - General 04/01/10 02/02/19 documented as of this encounter
--- OUTSIDE RECORDS SUMMARY | 2024-04-19 23:03 | XMS_ITS | Encounter Summary ---
Author Organization [facility] [place] [address] Care Team Providers Care Box Strapper Name Role Phone Ana Gillespie VAUGHN Primary Care Provider [phone] Reason for Visit * Reason Onset Date Comments Appointment 11/28/2020 Encounter Details Date Type Department Care Team (Late st Contact Info) Description 11/28/2020 Telephone [place] [phone] Evelin Novak I Appointment Social History Tobacco [...] 04/26/2024 8:30 AM [place] [phone] Gavin Carrillo MD [facility] [place] [address] 06/05/2024 1:20 PM EST Office Visit Cardiology at [address] [phone] Milagros Hernandez MD [facility] [place] [address] Scheduled Procedures Name Priority Associated Diagnoses Date/Ti me EGD, UPPER GI ENDOSCOPY (WRV U 2.09) Peptic stricture of esophagus documented as of this encounter Visit Diagnoses Not on filedocumented in this encounter Care Teams Box Strapper Relationship Specialty Start Date End Date Ana Gillespie APRN [address] [place] [address] PCP - General Family Medicine 02/03/19 documented as of this encounter
--- OUTSIDE RECORDS SUMMARY | 2024-04-19 23:03 | XMS_ITS | Encounter Summary ---
Author Organization [facility] Address [facility] [place] [address] Care Team Providers Care National Account Representative Name Role Phone David Blue MD Primary Care Provider [phone] Encounter Details Date Type Department Care Team (Late st Contact Info) Description 08/05/2017 Orders Only Gastroenterology at [place] [phone] David Dejesus MD [facility] [place] [address] Social History Tobacco Use Types Packs/Day Years [...] 04/26/2024 8:30 AM [place] [address] Gavin Carrillo MD [facility] [place] [address] 06/05/2024 1:20 PM EST Office Visit Cardiology at [address] [address] Milagros Hernandez MD [facility] [place] [address] Scheduled Procedures Name Priority Associated Diagnoses Date/Ti me EGD, UPPER GI ENDOSCOPY (WRV U 2.09) Peptic stricture of esophagus documented as of this encounter Visit Diagnoses Not on filedocumented in this encounter Care Teams National Account Representative Relationship Specialty Start Date End Date David Blue MD [address] [place] [address] PCP - General 04/01/10 02/02/19 documented as of this encounter
--- OUTSIDE RECORDS SUMMARY | 2024-04-19 23:03 | XMS_ITS | Encounter Summary ---
[place] [address] Care Team Providers Care Priest Name Role Phone David Blue MD Primary Care Provider [phone] Reason for Visit * Reason Onset Date Comments Prior Authorization 05/20/2018 Encounter Details Date Type Department Care Team (Late st Contact Info) Description 05/20/2018 Telephone [place] [address] Yoko Marroquin CCMA Prior Authorization Social History [...] Prior Authorization 4L Gastroenterology / [place] [address] Subscriber Insurance: [place] Medicaid Phone: Fax: Physician: David Dejesus Return Pharmacy: [facility] Fax: Medication Requested: Pantoprazole Strength: 40mg Frequency: Twice Daily Disp.: 180 Refills: 3 Currently taking: Diagnosis for this medication: GERD ICD-10 code: K21.9 Prior medications trialed in this patient: Esomeprazole Medication: Outcome/Adverse Reactions: Treatment Failure Decision: PA not required Tracking number/Case number/Reference number: [id number] Effective date: Start: End: documented in this encounter Plan of Treatment Upcoming Encounters Date Type Department Care Team (Late st Contact Info) Description 04/26/2024 8:30 AM EST Appointment Radiology at [place] [phone] Gavin Carrillo MD [facility] [place] [address] 06/05/2024 1:20 PM EST Office Visit Cardiology at [address] [phone] Milagros Hernandez MD [facility] [place] [address] Scheduled Procedures Name Priority Associated Diagnoses Date/Ti me EGD, UPPER GI ENDOSCOPY (WRV U 2.09) Peptic stricture of esophagus documented as of this encounter Visit Diagnoses Not on filedocumented in this encounter Care Teams Priest Relationship Specialty Start Date End Date David Blue MD [address] [place] [address] PCP - General 04/01/10 02/02/19 documented as of this encounter
--- OUTSIDE RECORDS SUMMARY | 2024-04-19 23:03 | XMS_ITS | Encounter Summary ---
[place] [address] Care Team Providers Care Senior Property Accountant Name Role Phone David Blue MD Primary Care Provider + [phone] Reason for Visit * Reason Onset Date Comments Prior Authorization 09/27/2018 Encounter Details Date Type Department Care Team (Late st Contact Info) Description 09/27/2018 Telephone [place] [address] Francoise Vides CMA GASTROENTEROLOGY DEPT Prior Authorization [...] Prior Authorization 4L Gastroenterology / [place] [address] ?? Subscriber Insurance: [place] Medicaid ?? Phone: . Fax: ? Physician: David Dejesus ? Return ?? Pharmacy: [facility] ? Medication Requested: pantoprazole ?? Strength: 40 mg Frequency: BID ?? Disp.: 180 Refills: 3 ?? Currently taking: no ?? Diagnosis for this medication: Farrell's w/ dysplasia, and GERD ?? ICD-10 code: ?? Prior medications trialed in this patient: Pantoprazole QD, esomperazole, and omeprazole ? Medication: Outcome/Adverse Reactions: treatment failure ?? Decision: approved ?? Tracking number/Case number/Reference number: [id number] ?? Effective date: ?? Start: End: 09/28/2019 documented in this encounter Plan of Treatment Upcoming Encounters Date Type Department Care Team (Late st Contact Info) Description 04/26/2024 8:30 AM EST Appointment Radiology at [place] [phone] Gavin Carrillo MD [facility] DR [place]VENTION[place] [address] 06/05/2024 1:20 PM EST Office Visit Cardiology at [address] [phone] Milagros Hernandez MD [facility] [place] [place] [address] Scheduled Procedures Name Priority Associated Diagnoses Date/Ti me EGD, UPPER GI ENDOSCOPY (WRV U 2.09) Peptic stricture of esophagus documented as of this encounter Visit Diagnoses Not on filedocumented in this encounter Care Teams Senior Property Accountant Relationship Specialty Start Date End Date David Blue MD [address] [place] [address] PCP - General 04/01/10 02/02/19 documented as of this encounter
--- OUTSIDE RECORDS SUMMARY | 2024-04-19 23:03 | XMS_ITS | Encounter Summary ---
Author Organization [facility] [place] [address] Care Team Providers Care Software Quality Specialist Name Role Phone Ana Gillespie VAUGHN Primary Care Provider [phone] Encounter Details Date Type Department Care Team (Late st Contact Info) Description 09/08/2021 Telephone [place] [address] Nicole Mariscal Social History Tobacco Use Types [...] Appointment [place] [address] Gavin Carrillo MD [facility] [place] [address] 06/05/2024 1:20 PM EST Office Visit Cardiology at [address] [phone] Milagros Hernandez MD [facility] [place] [address] Scheduled Procedures Name Priority Associated Diagnoses Date/Ti me EGD, UPPER GI ENDOSCOPY (WRV U 2.09) Peptic stricture of esophagus documented as of this encounter Visit Diagnoses Not on filedocumented in this encounter Care Teams Software Quality Specialist Relationship Specialty Start Date End Date Ana Gillespie APRN [address] [place] [address] PCP - General Family Medicine 02/03/19 documented as of this encounter
--- OUTSIDE RECORDS SUMMARY | 2024-04-19 23:03 | XMS_ITS | Encounter Summary ---
Author Organization [facility] [place] [address] Care Team Providers Care Service Center Coordinator Name Role Phone Ana Gillespie VAUGHN Primary Care Provider [phone] Encounter Details Date Type Department Care Team (Late st Contact Info) Description 07/14/2021 Telephone [place] [address] Chiquita James, RN Social History [...] AM [place] [phone] Gavin Carrillo MD [facility] [place] [address] 06/05/2024 1:20 PM EST Office Visit Cardiology at [address] [address] Milagros Hernandez MD [facility] [place] [address] Scheduled Procedures Name Priority Associated Diagnoses Date/Ti me EGD, UPPER GI ENDOSCOPY (WRV U 2.09) Peptic stricture of esophagus documented as of this encounter Visit Diagnoses Not on filedocumented in this encounter Care Teams Service Center Coordinator Relationship Specialty Start Date End Date Ana Gillespie APRN [address] [place] [address] PCP - General Family Medicine 02/03/19 documented as of this encounter
--- OUTSIDE RECORDS SUMMARY | 2024-04-19 23:03 | XMS_ITS | Encounter Summary ---
Author Organization [facility] [place] [address] Care Team Providers Care Cured Meat Packing Supervisor Name Role Phone Ana Gillespie APRN Primary Care Provider [phone] Encounter Details Date Type Department Care Team (Late Contact Info) Description 06/25/2021 Orders [place] [phone] David Dejesus MD [facility] [place] [address] Gastroesophageal reflux disease with esophagitis without hemorrhage [...] 04/26/2024 8:30 AM EST [place] [address] Gavin Carrillo MD [facility] [place] [address] 06/05/2024 1:20 PM EST Office Visit Cardiology at [address] [address] Milagros Hernandez MD [facility] [place] [address] Scheduled Procedures Name Priority Associated Diagnoses Date/Ti me EGD, UPPER GI ENDOSCOPY (WRV U 2.09) Peptic stricture of esophagus documented as of this encounter Visit Diagnoses Diagnosis Gastroesophageal reflux disease with esophagitis without hemorrhage documented in this encounter Care Teams Cured Meat Packing Supervisor Relationship Specialty Start Date End Date Ana Gillespie APRN [address] [place] [address] PCP - General Family Medicine 02/03/19 documented as of this encounter
--- OUTSIDE RECORDS SUMMARY | 2024-04-19 23:03 | XMS_ITS | Encounter Summary ---
Author Organization [facility] Address [facility] [place] [address] Care Team Providers Care Ship Officer Name Role Phone David [place] MD Primary Care Provider [phone] Encounter Details Date Type Department Care Team (Late st Contact Info) Description 09/23/2016 Ancillary Procedure Radiology Library at [facility] [place] [phone] Ana Gillespie APRN [address] [place] [address] Social History Tobacco Use Types [...] 04/26/2024 8:30 AM EST Appointment [place] [address] Gavin Carrillo MD [facility] [place] [address] 06/05/2024 1:20 PM EST Office Visit Cardiology at [address] [phone] Milagros Hernandez MD [facility] [place] [address] Scheduled Procedures Name Priority Associated Diagnoses Date/Ti me EGD, UPPER GI ENDOSCOPY (WRV U 2.09) Peptic stricture of esophagus documented as of this encounter Procedures Procedure Name Priority Date/Time Associated Diagnosis Comments FILM LIBRARY STORAGE ONLY MAMMO Routine 09/23/2016 12:00 AM EDT documented in this encounter Results * Film Library- Storage Only Mammo (09/23/2016 12:00 AM EDT) Narrative [facility] - 02/13/2019 8:42 AM EDT This exam is auto-finalizing. It's purpose is for storage only. Ana Gillepsie APRN IMG FILM LIBRARY ORD ERABLES [place], [place] documented in this encounter Visit Diagnoses Not on filedocumented in this encounter Care Teams Ship Officer Relationship Specialty Start Date End Date David [place] MD [address] [place] [address] PCP - General 04/01/10 02/02/19 documented as of this encounter
--- OUTSIDE RECORDS SUMMARY | 2024-04-19 23:03 | XMS_ITS | Encounter Summary ---
Author Organization [facility] [place] [address] Care Team Providers Care Strip Machine Tender Name Role Phone David Blue MD Primary Care Provider [phone] Encounter Details Date Type Department Care Team (Late st Contact Info) Description 06/28/2018 [place] [address] Erin Lynn Social History Tobacco [...] - 06/28/2018 11:52 AM EST Jennifer Irving [phone] Diagnosis: EGD 1. Have you ever had [...] [] YES [x] NO If Yes send inFoxfly message to [facility] ENDO DEVICE CHECK 4. Are you a diabetic? [x] YES [] NO If yes, controlled by meds or diet? ___Both 5. Do you have any Allergies to Eggs, Latex or Medications? [x] YES [] NO If Yes, what:___See ED 6. Do you take any Oral Iron [...] AM [place] [address] Gavin Carrillo MD [facility] [place] [address] 06/05/2024 1:20 PM EST Office Visit Cardiology at [address] [address] Milagros Hernandez MD [facility] [place] [address] Scheduled Procedures Name Priority Associated Diagnoses Date/Ti me EGD, UPPER GI ENDOSCOPY (WRV U 2.09) Peptic stricture of esophagus documented as of this encounter Visit Diagnoses Not on filedocumented in this encounter Care Teams Strip Machine Tender Relationship Specialty Start Date End Date David Blue MD [address] [place] [address] PCP - General 04/01/10 02/02/19 documented as of this encounter
--- OUTSIDE RECORDS SUMMARY | 2024-04-19 23:03 | XMS_ITS | Encounter Summary ---
Author Organization [facility] [place] [address] Care Team Providers Care Associate Professor Of Radiology Name Role Phone Ana Gillespie APRN Primary Care Provider [phone] Encounter Details Date Type Department Care Team (Late st Contact Info) Description 09/16/2020 Orders [place] [phone] David Dejesus MD [facility] [place] [address] Social History Tobacco Use Types Packs/Day Years [...] AM [place] [address] Gavin Carrillo MD [facility] [place] [address] 06/05/2024 1:20 PM EST Office Visit Cardiology at [address] [phone] Milagros Hernandez MD [facility] [place] [address] Scheduled Procedures Name Priority Associated Diagnoses Date/Ti me EGD, UPPER GI ENDOSCOPY (WRV U 2.09) Peptic stricture of esophagus documented as of this encounter Visit Diagnoses Not on filedocumented in this encounter Care Teams Associate Professor Of Radiology Relationship Specialty Start Date End Date Ana Gillespie APRN [address] [place] [address] PCP - General Family Medicine 02/03/19 documented as of this encounter
--- OUTSIDE RECORDS SUMMARY | 2024-04-19 23:03 | XMS_ITS | Encounter Summary ---
Author Organization [facility] Address [facility] [place] [address] Care Team Providers Care Proofer Apprentice Name Role Phone David Blue MD Primary Care Provider + [phone] Encounter Details Date Type Department Care Team (Late st Contact Info) Description 07/22/2018 11:59 PM EDT Anesthesia [place] [phone] Vanessa Escalona MD [facility] [place] [address] Anesthesia Record Procedure Summary Procedure Name Responsible [...] OR MULTIPLE performed by David Dejesus MDat [facility] ??? PRO UPPER GI ENDOSCOPY, BIOPSY N/A 03/20/2016 EGD WITH BIOPSY performed by David Dejesus MD at [facility] ??? PRO UPPER GI ENDOSCOPY, DIAGNOSTIC N/A 04/03/2014 EGD, UPPER GI ENDOSCOPY performed by David Dejesus MD at [facility] Social History Tobacco Use ??? Smoking [...] discussed with patient who. Plan discussed with BONDING AND COMPOSITE FABRICATOR. PAT Staff Note documented in this encounter Plan of Treatment Upcoming Encounters Date Type Department Care Team (Late st Contact Info) Description 04/26/2024 8:30 AM EST [place] [address] Gavin Carrillo MD [facility] [place] [address] 06/05/2024 1:20 PM EST Office Visit Cardiology at [address] [address] Milagros Hernandez MD [facility] [place] [address] Scheduled Procedures Name Priority Associated Diagnoses Date/Ti me EGD, UPPER GI ENDOSCOPY (WRV U 2.09) Peptic stricture of esophagus documented as of this encounter Visit Diagnoses Not on filedocumented in this encounter Care Teams Proofer Apprentice Relationship Specialty Start Date End Date David Blue MD [address] [place] [address] PCP - General 04/01/10 02/02/19 documented as of this encounter
--- OUTSIDE RECORDS SUMMARY | 2024-04-19 23:03 | XMS_ITS | Encounter Summary ---
Author Organization [facility] [place] [address] Care Team Providers Care Synchro Assembler Name Role Phone Ana Gillespie APRN Primary Care Provider [phone] Encounter Details Date Type Department Care Team (Late st Contact Info) Description 09/09/2021 11:59 PM EDT Anesthesia [place] [phone] Bel Villanueva MD [facility] [place] [address] Parris Steinberg CRNA [facility] [place] [address] Anesthesia Record Procedure Summary Procedure Name Responsible [...] performed by David Dejesus MD at [facility] ??? PRO COLONOSCOPY, DIAGNOSTIC N/A 03/01/2020 COLONOSCOPY, DIAGNOSTIC performed by David Dejesus MD at [facility] ??? PRO UPPER GI ENDOSCOPY, BIOPSY N/A 04/03/2014 UPPER GASTROINTESTINAL ENDOSCOPY,WITH BIOPSY SINGLE OR MULTIPLE performed by David Dejesus MDat [facility] ??? PRO UPPER GI ENDOSCOPY, BIOPSY N/A 03/20/2016 EGD WITH BIOPSY performed by David Dejesus MD at [facility] ??? PRO UPPER GI ENDOSCOPY, BIOPSY N/A 11/22/2018 EGD WITH BIOPSY (WRVU 2.49) performed by David Dejesus MD at [facility] ??? PRO UPPER GI ENDOSCOPY, BIOPSY N/A 03/01/2020 UPPER GASTROINTESTINAL ENDOSCOPY,WITH BIOPSY SINGLE OR MULTIPLE (WRVU 2.49) performed by David Dejesus MD at [facility] ??? PRO UPPER GI ENDOSCOPY, DIAGNOSTIC N/A 04/03/2014 EGD, UPPER GI ENDOSCOPY performed by David Dejesus MD at [facility] ??? PRO UPPER GI ENDOSCOPY, DIAGNOSTIC N/A 03/01/2020 EGD, UPPER GI ENDOSCOPY performed by David Dejesus MD at [facility] Social History Tobacco Use [...] risks discussed with patient. Plan discussed with KEYBOARD INSTRUMENT TUNER. Anesthesia Screening documented in this encounter Plan of Treatment Upcoming Encounters Date Type Department Care Team (Late st Contact Info) Description 04/26/2024 8:30 AM EST Appointment [place] [phone] Gavin Carrillo MD [facility] [place] [address] 06/05/2024 1:20 PM EST Office Visit Cardiology at [address] [phone] Milagros Hernandez MD [facility] [place] [address] Scheduled Procedures Name Priority Associated Diagnoses Date/Ti me EGD, UPPER GI ENDOSCOPY (WRV U 2.09) Peptic stricture of esophagus documented as of this encounter Visit Diagnoses Not on filedocumented in this encounter Care Teams Synchro Assembler Relationship Specialty Start Date End Date Ana Gillespie APRN [address] [place] [address] PCP - General Family Medicine 02/03/19 documented as of this encounter
--- OUTSIDE RECORDS SUMMARY | 2024-04-19 23:03 | XMS_ITS | Encounter Summary ---
Author Organization [facility] Address [facility] [place] [address] Care Team Providers Care Reconstructive Dentist Name Role Phone Ana Gillespie APRN Primary Care Provider [phone] Encounter Details Date Type Department Care Team (Late st Contact Info) Description 03/01/2020 8:32 AM EDT Anesthesia [place] [phone] Ute Novak MD [facility] DR ANESTHESIOLOGY [place] [address] Anesthesia Record Procedure Summary Procedure Name Responsible Anesthesiologist Anesthesia Start Time Anesthesia Stop Time EGD, UPPER GI ENDOSCOPY (WRVU 2.09) (Trunk) Ute Novak MD 03/01/20 0832 03/01/20 0924 Events Date Time Event Comment 03/01/2020 0754 0832 AN Verify 0832 Start 0832 An Start Data 0836 An Induction 0838 Anesthesia Ready 0922 an stop data 0924 Recovery or ICU Handoff Asyra ent care was transferred to the destination [...] 0723; metacarpal vein (top of hand), right; vdjf-kqy-[id number] catheter system; 20 gauge; gaurav rn; distraction, [...] Procedure Summary Date: 03/01/20 Room / Location: [facility] ENDO 2 / [facility] Anesthesia Start: 831 Anesthesia Stop: 923 Procedures: EGD, UPPER GI ENDOSCOPY (N/A Trunk) COLONOSCOPY, DIAGNOSTIC (N/A Trunk) UPPER GASTROINTESTINAL ENDOSCOPY,WITH BIOPSY SINGLE OR MULTIPLE (WRVU 2.49) (N/A Esophagus) Diagnosis: (needs egd/colonoscopy for GERD and screening colo rojelio) Surgeon: David Dejesus MD Responsible Provider: Ute Novak MD Anesthesia Type: MAC ASA Status: 3 All Anesthesia Providers: Anesthesiologist: Ute Novak MD STORE LEAD: Chiquita Felix CRNA Vitals Value Taken Time BP 170/68 03/01/20 1001 Temp Pulse Resp 16 03/01/20 1000 SpO2 99 % 03/01/20 1008 Pain Level 0 03/01/20 1000 Vitals shown include unvalidated device data. Patient Location: PACU/[facility] Level of Consciousness: Awake and [...] BX performed by David Dejesus MD at [facility] ENDOSCOPY ??? PRO UPPER GI ENDOSCOPY, BIOPSY N/A 04/03/2014 UPPER GASTROINTESTINAL ENDOSCOPY,WITH BIOPSY SINGLE OR MULTIPLE performed by David Dejesus MDat [facility] END[facility]COPY ??? PRO UPPER GI ENDOSCOPY, BIOPSY N/A 03/20/2016 EGD WITH BIOPSY performed by David Dejesus MD at [facility] ENDOSCOPY ??? PRO UPPER GI ENDOSCOPY, BIOPSY N/A 11/22/2018 EGD WITH BIOPSY (WRVU 2.49) performed by David Dejesus MD at [facility]COPY ??? PRO UPPER GI ENDOSCOPY, DIAGNOSTIC N/A 04/03/2014 EGD, UPPER GI ENDOSCOPY performed by David Dejesus MD at [facility] Social History Tobacco Use [...] risks discussed with patient. Plan discussed with STORE LEAD and attending. PAT Clinic Note documented in this encounter Plan of Treatment Upcoming Encounters Date Type Department Care Team (Late st Contact Info) Description 04/26/2024 8:30 AM EST Appointment Radiology at [place] [phone] Gavin Carrillo MD [facility] [place] [address] 06/05/2024 1:20 PM EST Office Visit Cardiology at [address] [phone] Milagros Hernandez MD [facility] [place] [address] Scheduled Procedures Name Priority Associated Diagnoses Date/Ti [...] mL/hr documented in this encounter Care Teams Reconstructive Dentist Relationship Specialty Start Date End Date Ana Gillespie APRN [address] [place] [address] PCP - General Family Medicine 02/03/19 documented as of this encounter
--- OUTSIDE RECORDS SUMMARY | 2024-04-19 23:04 | XMS_ITS | Encounter Summary ---
Author Organization [facility] [place] [address] Care Team Providers Care Vp Digital Marketing Social Media And Crm Name Role Phone David Blue MD Primary Care Provider [phone] Encounter Details Date Type Department Care Team (Late st Contact Info) Description 12/12/2012 Ancillary Procedure Radiology Library at [facility] [place] [phone] Ana Gillespie APRN [address] [place] [address] Social History Tobacco Use Types [...] 04/26/2024 8:30 AM EST [place] [phone] Gavin Carrillo MD [facility] INTERVENTIONAL RADIOLOGY [place], [place] [phone] 06/05/2024 1:20 PM EST Office Visit Cardiology at [address] [phone] Milagros Hernandez MD [facility] CARDIOLOGY [place], [place] [address] Scheduled Procedures Name Priority Associated Diagnoses Date/Ti me EGD, UPPER GI ENDOSCOPY (WRV U 2.09) Peptic stricture of esophagus documented as of this encounter Procedures Procedure Name Priority Date/Time Associated Diagnosis Comments FILM LIBRARY STORAGE ONLY MAMMO Routine 12/12/2012 12:00 AM EDT documented in this encounter Results * Film Library- Storage Only Mammo (12/12/2012 12:00 AM EDT) Narrative RAD - 02/13/2019 8:42 AM EDT This exam is auto-finalizing. It's purpose is for storage only. Ana Gillespie APRN [employer]MM[employer] FILM LIBRARY ORD ERABLES [place], [place] documented in this encounter Visit Diagnoses Not on filedocumented in this encounter Care Teams Vp Digital Marketing Social Media And Crm Relationship Specialty Start Date End Date David Blue MD [address] [place] [address] PCP - General 04/01/10 02/02/19 documented as of this encounter
--- OUTSIDE RECORDS SUMMARY | 2024-04-19 23:04 | XMS_ITS | Encounter Summary ---
Author Organization [facility] Address [address] [place] [address] Care Team Providers Care Sales Representative Printing Paper Name Role Phone David Blue MD Primary Care Provider [phone] Encounter Details Date Type Department Care Team (Late st Contact Info) Description 11/28/2010 Results Only [facility] - [facility] [address], [place] [id number] Sergey Kraus, DO [address] [facility] [address] [place] [address] Social History Tobacco Use Types Packs/Day Years Used Date Smoking Tobacco: Never Assessed Comments Unknown Sex and Gender Information Value Date Recorded Sex Assigned at Not on file Legal Sex Female 18:27 EST Gender Identity Not on file Sexual Orientation [...] when reading/interpreting unformatted reports. ? Name: ? IRIVNG, JENNIFER ? Accession #: ? [id number] ? : ? 1960 (Age: 50) ??F ? Collect Date: ? 11/28/2010 ? Location: ? [facility] ? Receive Date: ? 11/28/2010 ? Provider: SERGEY KRAUS DO ? Copy to: DAVID BLUE MD ? Final Pathologic Diagnosis: ? Colon, 20 cm, polyp, biopsy: ? - Hyperplastic polyp. ??See comment. ? Comment: ? Deeper levels have been examined. Clay Press Operator sections of this case have been reviewed at intradepartmental consultation conference. (Dr. Patten)/mpl ? Document reviewed and electronically signed by: ? LINDSAY HOBSON MD ? Report ??Date: 12/03/2010 15:50 ? By the signature above, the attending physician certifies that he/she has ? personally conducted a gross and/or microscopic examination of the described ? specimens and rendered or confirmed the above diagnosis. ? Specimen(s) Received: ? Colon polyp 20 cm ? Clinical History: ? Colorectal screen ? Gross Description: ? Received in formalin labelled IrvingBintat and colon polyp 20 cm is a single, kirby-brown, focally white, polypoid tissue fragment which measures ?? 0.9 x 0.5 x 0.4 cm. ??Prior to sectioning, the resection margin is black inked. ?? The specimen is bisected and entirely submitted in a single cassette. ( ? [facility] ? End of Report ? [facility] 11/28/2010 11/28/2010 18: 52 EDT us Sergey Kraus DO PATHOLOGY ORDERABLES Fi nal Result [facility] [address] [place] [address] documented in this encounter Visit Diagnoses Not on filedocumented in this encounter Care Teams Sales Representative Printing Paper Relationship Specialty Start Date End Date David Blue MD [address] [place] [address] PCP - General 07/15/09 documented as of this encounter
--- OUTSIDE RECORDS SUMMARY | 2024-04-19 23:04 | XMS_ITS | Encounter Summary ---
Author Organization [facility] Address [facility] [place] [address] Care Team Providers Care Magneto Electrician Name Role Phone David Blue MD Primary Care Provider [phone] Reason for Referral * Surgical - Closed Specialty Diagnoses / Procedures Referred By Esperanza rodríguez Referred To Contact General Surgery Diagnoses Esophageal reflux David Dejesus MD [facility] [place] [place] [address] Baljinder Maharaj MD [facility] [place] [address] Referral ID Status Reason Start Date Expiration Date V isits Requested Visits Authorized [id number] Closed Specialty Service Requested 01/16/2014 07/15/2014 1 1 Encounter Details Date Type Department Care Team (Late st Contact Info) Description 01/16/2014 Orders Only Gastroenterology [place] [phone] David Dejesus MD [facility] [place] [address] Esophageal reflux (Primary Dx) Social History Tobacco [...] 04/26/2024 8:30 AM EST Appointment [place]iology [place] [phone] Gavin Carrillo MD [facility] [place] [address] 06/05/2024 1:20 PM EST Office Visit Cardiology at [address] [phone] Milagros Hernandez MD [facility] [place] [address] Scheduled Orders Name Type Priority Associated Diagnoses [...] Primary documented in this encounter Care Teams Magneto Electrician Relationship Specialty Start Date End Date David Blue MD [address] [place] [address] PCP - General 04/01/10 02/02/19 documented as of this encounter
--- OUTSIDE RECORDS SUMMARY | 2024-04-19 23:04 | XMS_ITS | Encounter Summary ---
Author Organization [facility] Address [facility] [place] [address] Care Team Providers Care Chro Name Role Phone David Blue MD Primary Care Provider [phone] Encounter Details Date Type Department Care Team (Latest Contact Info) Description 07/02/2014 12:45 PM EST - 07/02/2014 11:59 PM EST Hospital [place] [address] CLINIC, David Lees MD [address] [place], [place] [phone] Discharge Disposition: Home Social History Tobacco Use [...] 04/26/2024 8:30 AM [place] [address] Gavin Carrillo MD [facility] [place] [address] 06/05/2024 1:20 PM EST Office Visit Cardiology at [address] [phone] Milagros Hernandez MD [facility] [place] [address] Scheduled Procedures Name Priority Associated Diagnoses Date/Ti [...] on filedocumented in this encounter Care Teams Chro Relationship Specialty Start Date End Date David Blue MD [address] [place] [address] PCP - General 04/01/10 02/02/19 documented as of this encounter
--- OUTSIDE RECORDS SUMMARY | 2024-04-19 23:04 | XMS_ITS | Encounter Summary ---
Author Organization [facility] Address [facility] [place] [address] Care Team Providers Care Drawing Press Operator Name Role Phone David Blue MD Primary Care Provider [phone] Reason for Visit * Reason Comments Gastroesophageal Reflux Encounter Details Date Type Department Care Team (Late st Contact Info) Description 03/20/2014 1:00 PM EST Office Visit [place] [address] Baljinder Maharaj MD [facility] [place] [address] GERD (gastroesophageal reflux disease); Farrell's esophagus Discharge [...] visit was 30 minutes, all spent in [id number] discussion with the patient and her and son. documented in this encounter Plan of Treatment Upcoming Encounters Date Type Department Care Team (Late st Contact Info) Description 04/26/2024 8:30 AM EST Appointment [place] [address] Gavin Carrillo MD [facility] [place] [address] 06/05/2024 1:20 PM EST Office Visit Cardiology at [address] [address] Milagros Hernandez MD [facility] [place] [place] [address] Scheduled Procedures Name Priority Associated Diagnoses Date/Ti me EGD, UPPER GI ENDOSCOPY (WRV U 2.09) Peptic stricture of esophagus documented as of this encounter Visit Diagnoses Diagnosis GERD (gastroesophageal reflux disease) Esophageal reflux Farrell's esophagus documented in this encounter Care Teams Drawing Press Operator Relationship Specialty Start Date End Date aDvid Blue MD [address] [place] [address] PCP - General 04/01/10 02/02/19 documented as of this encounter
--- OUTSIDE RECORDS SUMMARY | 2024-04-19 23:04 | XMS_ITS | Encounter Summary ---
Author Organization [facility] Address [address] [place] [address] Care Team Providers Care Brand Inspector Name Role Phone David Blue MD Primary Care Provider [phone] Encounter Details Date Type Department Care Team (Late st Contact Info) Description 06/10/2021 Lab Requisition [facility] Pathology & Laboratory Medicine - [facility] [address] [place] [address] Merly Purcell, DO [address] [facility] [address] [place] [address] Encounter for other general examination [...] management options, if applicable. 06/11/2021 13:01 EST [facility] Final Diagnosis A. JEJUNUM, [...] - Consistent with Hyperplastic polyp. 06/11/2021 13:01 [facility] Attestation By the signature below, the attending physician certifies that they have 1) personally conducted a gross and/or microscopic examination of the described specimen(s), and/or personally interpreted the results of laboratory testing of the described specimen(s), and 2) personally rendered or confirmed the above diagnosis. 06/11/2021 13:01 [facility] at 1301 Clinical History Anemia, abdominal pain 06/11/2021 13:01 [facility] Gross Description A. Received [...] N1. ROSLYN EARLY(ASCP) 06/10/2021 19:05 06/11/2021 13:01 [facility] Performing Lab [facility] 06/11/2021 13:01 [facility] Scanned Images 06/11/2021 13:01 [facility] Tissue SPECIMEN FROM RECTUM [...] Unknown 06/10/2021 9:41 EST 06/10/2021 16:32 EST us Merly Purcell DO PATHOLOGY ORDERABLES Final Re sult [facility] [address] [place] [address] documented in this encounter Visit Diagnoses Diagnosis Encounter for other general examination documented in this encounter Care Teams Brand Inspector Relationship Specialty Start Date End Date David Blue MD [address] [place] [address] PCP - General 07/15/09 documented as of this encounter
--- OUTSIDE RECORDS SUMMARY | 2024-04-19 23:04 | XMS_ITS | Referral Summary ---
Author Organization [facility] Address [address] [place] [address] Care Team Providers Care Warp Trucker Name Role Phone David Blue MD Primary Care Provider [phone] Social History Tobacco Use Types Packs/Day Years Used Date Smoking Tobacco: Never Assessed Comments Unknown Sex and Gender Information Value Date Recorded Sex Assigned at Not on file Legal Sex Female 18:27 EST Gender Identity Not on file Sexual Orientation Not on file Plan of Treatment Not on file Insurance MEDICAID [facility] [place] Care Teams Warp Trucker Relationship Specialty Start Date End Date David Blue MD [address] [place] [address] PCP - General 07/15/09
--- OUTSIDE RECORDS SUMMARY | 2024-04-19 23:04 | XMS_ITS | Encounter Summary ---
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 for Farrell's esophagus last 04/03/14 Procedures PRO UPPER GI ENDOSCOPY, DIAGNOSTIC PRO COLONOSCOPY, DIAGNOSTIC EGD, UPPER GI ENDOSCOPY Referral ID Status Reason Start Date Expiration Date Visits Re quested Visits Authorized [id number] 1 1 Encounter Details Date Type Department Care Team (Late st Contact Info) Description 03/20/2016 11:00 AM EST - 03/20/2016 12:00 PM EST Surgery [place] [address] David Dejesus MD [facility] [place] [address] EGD WITH BIOPSY (WRVU 2.39) Social History [...] or concerns, please call us Wednesday-Wednesday Clinic [phone] 8a-5p Same Day Endo [phone] 7a-8p Nights and weekends contact [phone] and ask to speak to the tool design checker training professional. Follow up care is a fam [...] kit. 1 each 0 12/14/2014 Insulin [place], Disposable, (BD INSULIN PEN NEEDLE UF MINI) [...] 04/26/2024 8:30 AM EST [place] [address] Gavin Carrillo MD [facility] [place] [address] 06/05/2024 1:20 PM EST Office Visit Cardiology at [address] [phone] Milagros Hernandez MD [facility] [address] Scheduled Procedures Name Priority Associated Diagnoses Date/Ti [...] Report (03/20/2016 12:43 PM EST) Final Diagnosis [id number] ?Location: 4T; EA07; A The signing pathologist [...] Rectum, polypectomy: Hyperplastic polyp. Electronically signed by: ??Sergio MARTE, Jeniffer Verified: ??03/24/2016 ?Pathologist DISCUSSION Part E: Per [...] ing: (T1) ??peters 03/24/2016 5:[address] [facility] GI Biopsy 03/20/2016 12:4 3 [...] Dejesus MD PATHOLOGY/CYTOLOGY ORDERABLES Performing Organization Address City/State/[facility] Co de Phone Number [facility] [place] [address] * Specimen to Pathology (surgical or derm) (03/20/2016 12:43 PM EST) AP Specimen 03/20/2016 12:4 3 PM EST 03/20/2016 12:[address] [facility] - 03/20/2016 12:43 PM EST Specimen requisition ordered. ??Separate Pathology report to follow David Dejesus MD PATHOLOGY/[place] [address] * Specimen to Pathology (surgical or derm) (03/20/2016 12:43 PM EST) AP Specimen 03/20/2016 12:4 3 PM EST 03/20/2016 12:[address] [facility] - 03/20/2016 12:43 PM EST Specimen requisition ordered. ??Separate Pathology report to follow David Dejesus MD PATHOLOGY/CYTOLOGY ORDERABLES Performing Organization Address City/[facility]/[place] [address] * Specimen to Pathology (surgical or derm) (03/20/2016 12:43 PM EST) AP Specimen 03/20/2016 12:4 3 PM EST 03/20/2016 12:[address] [facility] - 03/20/2016 12:43 PM EST Specimen requisition ordered. ??Separate Pathology report to follow David Dejesus MD PATHOLOGY/CYTOLOGY ORDERABLES Performing Organization Address City/[facility]/[place] [address] * Specimen to Pathology (surgical or derm) (03/20/2016 12:43 PM EST) AP Specimen 03/20/2016 12:4 3 PM EST 03/20/2016 12:[address] [facility] - 03/20/2016 12:43 PM EST Specimen requisition ordered. ??Separate Pathology report to follow David Dejesus MD PATHOLOGY/CYTOLOGY ORDERABLES Performing Organization Address City/[facility]/[place] [address] * Specimen to Pathology (surgical or derm) (03/20/2016 12:43 PM EST) AP Specimen 03/20/2016 12:4 3 PM EST 03/20/2016 12:[address] [facility] - 03/20/2016 12:43 PM EST Specimen requisition ordered. ??Separate Pathology report to follow David Dejesus MD PATHOLOGY/CYTOLOGY ORDERABLES Performing Organization Address [facility] [place] [address] * Specimen to Pathology (surgical or derm) (03/20/2016 12:43 PM EST) AP Specimen 03/20/2016 12:4 3 PM EST 03/20/2016 12:[address] [facility] - 03/20/2016 12:43 PM EST Specimen requisition ordered. ??Separate Pathology report to follow David Dejesus MD PATHOLOGY/CYTOLOGY ORDERABLES Performing Organization Address [facility] [place] [address] * COLONOSCOPY (03/20/2016 11:32 AM EST) COLONOSCOPY [facility] Endoscopy Procedure Date: 03/20/2016 11:32 AM ? Patient Name: Jennifer Irving ? N: [id number] ? Date of : 1960 ? Age: 55 ? Order #: [id number] ? Instrument Name: [id number] ? Procedure: ? Colonoscopy Indications: ? Screening for colorectal malignant ? neoplasm Providers: ? David Dejesus MD, Geronimo Joyner ? MD Valerie, Tapan Chong RN, ? Theodora Farrell, Manager Shipping Referring : ?David Blue MD Medicines: ? [...] 11:31 AM EST) UPPER GI ENDOSCOPY [facility] Endoscopy Procedure Date: 03/20/2016 11:31 AM ? Patient Name: Jennifer Irving ? N: [id number] ? Date of : 1960 ? Age: 55 ? Order #: [id number] ? Instrument Name: [id number] ? Procedure: ? Upper GI endoscopy Indications: [...] care under the ? supervision of a URBAN SOCIOLOGIST was determined ? to be medically necessary [...] MD GENERAL SURGICAL ORD ERABLES [place] * (ABNORMAL) POCT Glucose (03/20/2016 10:54 AM EST) Glucose, POC 243(H) 65 - 199 mg/dL [facility] Comment: Supplemental ranges: <140 mg/dL before meals <180 mg/dL all other times of the day Blood specimen (specimen) 03/20/2016 10:54 AM EST 03/20/2016 10:54 AM EST David Dejesus MD POINT OF CARE TEST ORDERABLES [facility] [place] [address] * (ABNORMAL) POCT Fingerstick Glucose (03/20/2016) Glucose, [...] CRNA) documented in this encounter Care Teams Chinchilla Farmer Relationship Specialty Start Date End Date David Blue MD [address] [place] [address] PCP - General 04/01/10 02/02/19 documented as of this encounter
--- OUTSIDE RECORDS SUMMARY | 2024-04-19 23:04 | XMS_ITS | Encounter Summary ---
Author Organization [facility] Address [facility] [place] [address] Care Team Providers Care Handbag Framer Name Role Phone Unavailable Primary Care Provider Unavailabl e Encounter Details Date Type Department Care Team (Late st Contact Info) Description 03/01/2009 Ancillary Procedure Radiology Library at [facility] [place] [phone] Ana Gillespie APRN [address] [place], [place] [address] Social History Tobacco Use Types Packs/Day Years Used Date Smoking Tobacco: Never Assessed Sex and Gender Information Value Date Recorded Sex Assigned at Not on file Gender Identity Not on file Sexual Orientation Not on file documented as of this encounter Plan of Treatment Upcoming Encounters Date Type Department Care Team (Late st Contact Info) Description 04/26/2024 8:30 AM EST Appointment [place] [phone] Gavin Carrillo MD [facility] INTERVENTIONAL RADIOLOGY [place], [place] [phone] 06/05/2024 1:20 PM EST Office Visit Cardiology at [address] [phone] Milagros Hernandez MD [facility] CARDIOLOGY [place], [place] [phone] Scheduled Procedures Name Priority Associated Diagnoses Date/Ti me EGD, UPPER GI ENDOSCOPY (WRV U 2.09) Peptic stricture of esophagus documented as of this encounter Procedures Procedure Name Priority Date/Time Associated Diagnosis Comments FILM LIBRARY STORAGE ONLY MAMMO Routine 03/01/2009 12:00 AM EDT documented in this encounter Results * Film Library- Storage Only Mammo (03/01/2009 12:00 AM EDT) Narrative [facility] - 02/13/2019 8:43 AM EDT This exam is auto-finalizing. It's purpose is for storage only. Ana Gillespie APRN IMMadison FILM LIBRARY ORD ERABLES Performing Organization Address City/State/[facility] Co de Phone Number [facility] [place], [place] documented in this encounter Visit Diagnoses Not on filedocumented in this encounter
--- OUTSIDE RECORDS SUMMARY | 2024-04-19 23:04 | XMS_ITS | Encounter Summary ---
Author Organization [facility] Address [address] [place] [address] Care Team Providers Care Airplane Mechanic Apprentice Name Role Phone David Blue MD Primary Care Provider [phone] Encounter Details Date Type Department Care Team (Late st Contact Info) Description 01/06/2023 Lab Requisition [facility] Pathology & Laboratory Medicine - [facility] [address] [place], [place] [phone] Outr Resulting Lab, Provider Social History Tobacco [...] 19 - 88 pg/mL 01/06/2023 18:58 EDT [facility] Blood VENOUS BLOOD / Unknown 01/05/2023 11:20 EDT 01/06/2023 17:02 EDT us Provider Outr Resulting Lab CHEMISTRY & BLOOD GA S ORDERABLES Final Result [facility] [address] [place] [address] documented in this encounter Visit Diagnoses Not on filedocumented in this encounter Care Teams Airplane Mechanic Apprentice Relationship Specialty Start Date End Date David Blue MD [address] [place] [address] PCP - General 07/15/09 documented as of this encounter
--- OUTSIDE RECORDS SUMMARY | 2024-04-19 23:04 | XMS_ITS | Encounter Summary ---
Author Organization [facility] Address [address] [place] [address] Care Team Providers Care Accounting Administrator Name Role Phone David Blue MD Primary Care Provider [phone] Encounter Details Date Type Department Care Team (Late st Contact Info) Description 07/03/2023 Lab Requisition [facility] Pathology & Laboratory Medicine - [facility] [address] [place], [place] [address] Outr Resulting Lab, Provider Social History Tobacco [...] Antigen Detection Negative Negative 07/03/2023 21:42 EST [facility] Urine URINE / Unknown 07/02/2023 1 8:28 EST 07/03/2023 21:19 EST us Provider Outr Resulting Lab MICROBIOLOGY - GENER AL ORDERABLES Final Result [facility] [address] [place] [address] documented in this encounter Visit Diagnoses Not on filedocumented in this encounter Care Teams Accounting Administrator Relationship Specialty Start Date End Date David Blue MD [address] [place] [address] PCP - General 07/15/09 documented as of this encounter
--- OUTSIDE RECORDS SUMMARY | 2024-04-19 23:04 | XMS_ITS | Encounter Summary ---
Author Organization [facility] Address [address] [place] [address] Care Team Providers Care Commercial Print Salesman Name Role Phone David Blue MD Primary Care Provider [phone] Encounter Details Date Type Department Care Team (Late st Contact Info) Description 07/18/2021 Lab Requisition [facility] Pathology & Laboratory Medicine - [facility] [address] [place] [address] Kavita Viera, DO [address] [place] [address] Encounter for other general examination Social History [...] management options, if applicable. 07/22/2021 10:39 EDT [facility] Final Diagnosis A. STOMACH, ANTRUM, BIOPSY: - Transitional mucosa with reactive (chemical) gastropathy. - Negative for Helicobacter pylori on H&E stained sections. B. ESOPHAGUS, MID-DISTAL, BIOPSY: - Fibrinopurulent exudate. - No intact epithelium identified. 07/22/2021 10:39 [facility] Attestation By the signature below, the attending physician certifies that they have 1) personally conducted a gross and/or microscopic examination of the described specimen(s), and/or personally interpreted the results of laboratory testing of the described specimen(s), and 2) personally rendered or confirmed the above diagnosis. 07/22/2021 10:39 [facility] at [address]39 Clinical History Intractable nausea, vomiting 07/22/2021 10:39 [facility] Gross Description A. Received [...] B1. ROSLYN CACERES(ASCP) 07/21/2021 9:55 07/22/2021 10:39 [facility] Performing Lab [facility] 10:39 [facility] Scanned Images 07/22/2021 10:39 [facility] Tissue ENTIRE ESOPHAGUS / Unknown 07/18/2021 14:10 EST 07/18/2021 22:23 EST Tissue specimen (specimen) ESOPHAGEAL STRUCTURE / Unknown 07/18/2021 14:10 EST 07/18/2021 22:23 EST us Kavita Viera DO PATHOLOGY ORDERABLES Fi nal Result [facility] [address] [place] [address] documented in this encounter Visit Diagnoses Diagnosis Encounter for other general examination documented in this encounter Care Teams Commercial Print Salesman Relationship Specialty Start Date End Date David Blue MD [address] [place] [address] PCP - General 07/15/09 documented as of this encounter
--- OUTSIDE RECORDS SUMMARY | 2024-04-19 23:04 | XMS_ITS | Encounter Summary ---
Author Organization [facility] Address [facility] [place] [address] Care Team Providers Care Maternal Fetal Physician Name Role Phone David Blue MD Primary Care Provider [phone] Reason for Visit * Reason Comments GI Problem Encounter Details Date Type Department Care Team (Late st Contact Info) Description 03/15/2013 9:00 AM EST Office [place] [address] Noe Genao MD [facility] [place] [address] GERD (gastroesophageal reflux disease) (Primary Dx); Covington's [...] to have her Covington's management here at [facility]. We reviewed the issues of timing of [...] to be successful. 45 of 60 direct [id number] minutes spent in counseling, and the rest [...] 04/26/2024 8:30 AM [place] [phone] Gavin Carrillo MD [facility] [place] [address] 06/05/2024 1:20 PM EST Office Visit Cardiology at [address] [phone] Milagros Hernandez MD [facility] [place] [address] Scheduled Procedures Name Priority Associated Diagnoses Date/Ti me EGD, UPPER GI ENDOSCOPY (WRV U 2.09) Peptic stricture of esophagus documented as of this encounter Visit Diagnoses Diagnosis GERD (gastroesophageal reflux disease)- Primary Esophageal reflux 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
--- OUTSIDE RECORDS SUMMARY | 2024-04-19 23:04 | XMS_ITS | Encounter Summary ---
Author Organization [facility] Address [address] [place] [address] Care Team Providers Care Sanitarian Inspector Name Role Phone Unavailable Primary Care Provider Unavailabl e Encounter Details Date Type Department Care Team (Late st Contact Info) Description 07/12/2009 Results Only [facility] Laboratory Services - [facility] [address] [place], [place] [phone] Sergey Kraus, [address] [facility] [address] [place] [address] Social History Tobacco Use Types [...] ? IRVING, JENNIFER ? Accession #: ? [id number] ? : ? 1960 (Age: 49) ??F [...] and reactive ?? changes. ? Comment: ? Aoc Plans Intelligence Officer portions of this case were reviewed at the intradepartmental consultation conference. ??(Dr. Urena)/[facility] ? Document reviewed and electronically signed by: ? Sohail Urena MD ? Report ??Date: 07/15/2009 17:16 ? By [...] reflux ? Gross Description: ? Received in Hollande's fixative labelled Irving, Jennifer and ? duodenum biopsy #1 is a 0.2 x 0.2 x 0.2 cm, kirby-pink soft tissue. ??The ? specimen is submitted entirely as (A). ? Received in Hollande's fixative labelled Irving, Jennifer and biopsy ? antrum is a 0.4 x 0.4 x 0.3 cm, kirby-pink soft tissue. ??The specimen is ? submitted entirely as (B). ? [facility] fixative labelled Irving, Jennifer and #3 biopsy ?? distal esophagus are three kirby-pink soft tissues, each averaging 0.3 x 0.3 x ?? 0.2 cm. ??The specimen is submitted entirely as (C). ? Received in [facility] fixative labelled Irving, Jennifer and biopsy ? esophagus #4 are four kirby-pink soft tissues ranging in size from 0.2 x 0.2 x ?? 0.2 cm to 0.2 x 0.1 x 0.1 cm. ??The specimen is submitted entirely as (D). ? Received in Hollande's fixative labelled Irving, Jennifer and biopsy ? proximal esophagus are two kirby-pink soft tissues ranging in size from 0.3 x 0.2 x 0.2 cm to 0.2 x 0.2 x 0.1 cm. ??The specimen is submitted entirely as (E). ? (Dr. Kearney)/[facility] ? End of Report ? DULCE DAVIES 07/12/2009 07/12/2009 19: 11 EST us Sergey Kraus DO PATHOLOGY ORDERABLES Fi nal Result DULCE DAVIES [address] [place] [address] documented in this encounter Visit Diagnoses Not on filedocumented in this encounter
--- OUTSIDE RECORDS SUMMARY | 2024-04-19 23:04 | XMS_ITS | Clinical Summary ---
Author Organization [facility] Address [address] [place] [address] Care Team Providers Care Assembly Line Brazer Name Role Phone David Blue MD Primary Care Provider [phone] Social History Tobacco Use Types Packs/Day Years Used Date Smoking Tobacco: Never Assessed Comments Unknown Sex and Gender Information Value Date Recorded Sex Assigned at Not on file Legal Sex Female 18:27 EST Gender Identity Not on file Sexual Orientation Not on file Plan of Treatment Health Maintenance Due Date Last Done Comments Hepatitis C Screen 1960 COVID-19 Vaccine (2023-25 season) 2024 RSV Immunization ( o r 60+ Years) (1 - 1-dose 75+ series) 2035 Insurance MEDICAID O [place] Care Teams Assembly Line Brazer Relationship Specialty Start Date End Date David Blue MD [address] [place] [address] PCP - General 07/15/09
--- OUTSIDE RECORDS SUMMARY | 2024-04-19 23:04 | XMS_ITS | Encounter Summary ---
Author Organization [facility] [place] [address] Care Team Providers Care Senior Court Office Assistant Name Role Phone David Blue MD Primary Care Provider [phone] Reason for Visit * Reason Onset Date Comments Other 03/21/2014 Motility Studies Canceled Encounter Details Date Type Department Care Team (Late st Contact Info) Description 03/21/2014 Telephone [place] [phone] Mya Garzon Other (Motility Studies [...] [place] [address] Gavin Carrillo MD [facility] [place] [address] 06/05/2024 1:20 PM EST Office Visit Cardiology at [address] [phone] Milagros Hernandez MD [facility] [place] [address] Scheduled Procedures Name Priority Associated Diagnoses Date/Ti me EGD, UPPER GI ENDOSCOPY (WRV U 2.09) Peptic stricture of esophagus documented as of this encounter Visit Diagnoses Not on filedocumented in this encounter Care Teams Senior Court Office Assistant Relationship Specialty Start Date End Date David Blue MD [address] [place] [address] PCP - General 04/01/10 02/02/19 documented as of this encounter
--- OUTSIDE RECORDS SUMMARY | 2024-04-19 23:04 | XMS_ITS | Encounter Summary ---
Author Organization [facility] Address [facility] [place] [address] Care Team Providers Care Director Funds Development Name Role Phone David Blue MD Primary Care Provider [phone] Reason for Referral * Consultation (Routine) - Closed Specialty Diagnoses / Procedures Referred By Esperanza rodríguez Referred To Contact Endocrinology Diagnoses Diabetes mellitus type 2, uncontrolled Dean Caban MD [facility] [place] [address] Yin Rehman LD [facility] [place] [address] Referral ID Status Reason Start Date Expiration Date V isits Requested Visits Authorized [id number] Closed Continuity of Care 12/13/2014 12/13/2015 3 3 Reason for Visit * Reason Comments Diabetes Encounter Details Date Type Department Care Team (Late st Contact Info) Description 12/13/2014 1:40 PM EDT Office Visit Endocrinology at [place] [phone] Moustapha Agosto MD [facility] [address] Diabetes mellitus type 2, uncontrolled Discharge Disposition: [...] with gestational diabetes 12 years ago and [id number] five years ago. The patient reports that [...] mg BID - Will coordinate visit with Datapower Developer at next visit - Complication Monitoring: - [...] 04/26/2024 8:30 AM [place] [phone] Gavin Carrillo MD [facility] [place] [address] 06/05/2024 1:20 PM EST Office Visit Cardiology at [address] [phone] Milagros Hernandez MD [facility] [place] [address] Scheduled Procedures Name Priority Associated Diagnoses Date/Ti [...] PM EDT) Creatinine, Urine 284 mg/dL CE CHELITA MILLNAZIA Albumin, Urine 258.4 mg/L ESE R MILLENNIUM Albumin / Creatinin Ratio, Urine 91 mcg/mg Cr DARCY BARNETT Comment: Reference Range* Random collection (mcg/mg creatinine) Normal ?<30 Microalbuminuria ?? 30 - 300 Clinical Albuminuria ?? >300 *[place] Diabetes Association. Diabetic Nephropathy. Diabetes Care 1997;(Suppl 1):S24-S27 Exercise within 24 hour, infection, fever, CHF, marked hyperglycemia, and marked hypertension may elevate urinary albumin excretion over baseline values. Urine specimen (specimen) 12/13/2014 12:33 PM EDT 12/13/2014 12:39 PM EDT Narrative Resulting Agency Comment Spec In Lab Moustapha Agosto MD URINE ORDERABLES DARCY BARNETT * (ABNORMAL) Hemoglobin A1c (12/13/2014 11:56 AM EDT) Hemoglobin A1c 10.6(H) 4.3 - 5.6 % [facility] BARNETT Comment: Reference Range: 4.3 - 5.6% 5.7 [...] Mellitus, Diabetes Care 2013; 36: Suppl. 1, N73-57 Estimated Average Glucose 258 mg/dL DARCY BARNETT Comment: eAG equivalents for HbA1c percentages: HbA1c(%) ?eAG(mg/dL) 6.0 ?126 6.5 ?140 7.0 ?154 7.5 ?169 8.0 ?183 8.5 ?197 9.0 ?212 9.5 ?226 10.0 ? 240 Limitations: The eAG calculation has not been validated on women, individuals below 18 years old and above 70 years old, and individuals with hemoglobinopathies. Additional resources are available on the ADA website: http://The Poshpacker.TeachBoost/DHMCadacalc Lucio BIGGS, Jeannie J, Edwin R, et al. ??Translating the A1C assay into estimated average glucose values. ??Diabetes Care 2008:31(8):8384-5032. Blood specimen (specimen) 12/13/2014 11:56 AM EDT 12/13/2014 12:19 PM EDT Narrative Resulting Agency Comment Spec In Lab Moustapha Agosto MD CHEMISTRY ORDERABLES Performing Organization Address City/State/[facility] [[email or web address]] Co dc Phone Number [facility] documented in this encounter Visit Diagnoses Diagnosis Diabetes mellitus type 2, uncontrolled Type II or unspecified type diabetes mellitus without mention of complication, uncontrolled documented in this encounter Care Teams Director Funds Development Relationship Specialty Start Date End Date David Blue MD [address] [place] [address] PCP - General 04/01/10 02/02/19 documented as of this encounter
--- OUTSIDE RECORDS SUMMARY | 2024-04-19 23:04 | XMS_ITS | Encounter Summary ---
Author Organization [facility] [place] [address] Care Team Providers Care Assistant Professor Of Physics Name Role Phone David Blue MD Primary Care Provider [phone] Reason for Visit * Reason Onset Date Comments Prior Authorization 03/12/2016 Encounter Details Date Type Department Care Team (Late st Contact Info) Description 03/12/2016 Telephone Gastroenterology at [facility] [place] [address] Francoise Vides CMA GASTROENTEROLOGY DEPT Prior Authorization [...] 04/26/2024 8:30 AM EST Appointment [place] [address] Gavin Carrillo MD [facility] [place] [address] 06/05/2024 1:20 PM EST Office Visit Cardiology at [address] [phone] Milagros Hernandez MD [facility] [place] [address] Scheduled Procedures Name Priority Associated Diagnoses Date/Ti me EGD, UPPER GI ENDOSCOPY (WRV U 2.09) Peptic stricture of esophagus documented as of this encounter Visit Diagnoses Not on filedocumented in this encounter Care Teams Assistant Professor Of Physics Relationship Specialty Start Date End Date David Blue MD [address] [place] [address] PCP - General 04/01/10 02/02/19 documented as of this encounter
--- OUTSIDE RECORDS SUMMARY | 2024-04-19 23:04 | XMS_ITS | Encounter Summary ---
Author Organization [facility] Address [address] [place] [address] Care Team Providers Care Employment Specialist/Program Manager Name Role Phone David Blue MD Primary Care Provider [phone] Encounter Details Date Type Department Care Team (Late st Contact Info) Description 09/14/2007 Results Only [facility] - Maple conversion [address] [place] [address] Kassidy Villafana FNP [address] [place], [place] [id number] Social History Tobacco Use Types Packs/Day Years [...] ? JENNIFER IRVING ? Accession #: ? [id number] : ? 1960 (Age: 47) ??F ?Collect Date: ? 09/14/2007 Location: ? [facility] ? Receive Date: ? 09/16/2007 Provider: ?KASSIDY DUDLEYP Copy to: ? Specimen/Source: ?ThinPrep Pap Test, Cervix/Endocervix, processed on [employer] ThinPrep Imaging System, with manual evaluation Last [...] End of Report [facility] 09/14/2007 09/16/2007 us Kassidy DUDLEYP PATHOLOGY ORDERABLES Final Resul t [facility] [address] [place] [address] documented in this encounter Visit Diagnoses Not on filedocumented in this encounter Care Teams Employment Specialist/Program Manager Relationship Specialty Start Date End Date David Blue MD [address] [place] [address] PCP - General 07/15/09 documented as of this encounter
--- OUTSIDE RECORDS SUMMARY | 2024-04-19 23:04 | XMS_ITS | Encounter Summary ---
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 last 04/03/14 Procedures PRO UPPER GI ENDOSCOPY, DIAGNOSTIC PRO COLONOSCOPY, DIAGNOSTIC EGD, UPPER GI ENDOSCOPY Referral ID Status Reason Start Date Expiration Date Visits Re quested Visits Authorized [id number] 1 1 Encounter Details Date Type Department Care Team (Latest Contact Info) Description 03/20/2016 9:21 AM EST - 03/20/2016 1:24 PM EST Hospital Encounter [place] [address] David Dejesus MD [facility] [place] [address] Discharge Disposition: Home Social History Tobacco Use [...] or concerns, please call us Wednesday-Wednesday Clinic [phone] 8a-5p Same Day Endo [phone] 7a-8p Nights and weekends contact [phone] and ask to speak to the ems instructor stonemason apprentice. Follow up care is a fam part [...] meter kit. 1 each 0 12/14/2014 Insulin Hughes, Disposable, (BD INSULIN PEN NEEDLE UF MINI) [...] 04/26/2024 8:30 AM EST Appointment [place] [address] Gavin Carrillo MD [facility] [address] INTERVENTIONAL [place] [address] 06/05/2024 1:20 PM EST Office Visit Cardiology at [address] [address] Milagros Hernandez MD [facility] [place] [address] Scheduled Procedures Name Priority Associated Diagnoses Date/Ti [...] Report (03/20/2016 12:43 PM EST) Final Diagnosis [id number] ?Location: 4T; EA07; A The signing pathologist [...] ing: (T1) ??peters 03/24/2016 5:02 PM EST [facility] GI Biopsy 03/20/2016 12:4 [...] PM EST David Dejesus MD PATHOLOGY/CYTOLOGY ORDERABLES [facility] [place] [address] * Specimen to Pathology (surgical or derm) (03/20/2016 12:43 PM EST) AP Specimen 03/20/2016 12:4 3 PM EST 03/20/2016 12:43 PM EST Narrative [facility] - 03/20/2016 12:43 PM EST Specimen requisition ordered. ??Separate Pathology report to follow David Dejesus MD PATHOLOGY/[place] [address] * Specimen to Pathology (surgical or derm) (03/20/2016 12:43 PM EST) AP Specimen 03/20/2016 12:4 3 PM EST 03/20/2016 12:43 PM EST Narrative [facility] - 03/20/2016 12:43 PM EST Specimen requisition ordered. ??Separate Pathology report to follow David Dejesus MD PATHOLOGY/CYTOLOGY ORDERABLES Performing Organization Address City/[facility]/[place] [address] * Specimen to Pathology (surgical or derm) (03/20/2016 12:43 PM EST) AP Specimen 03/20/2016 12:4 3 PM EST 03/20/2016 12:43 PM EST Narrative [facility] - 03/20/2016 12:43 PM EST Specimen requisition ordered. ??Separate Pathology report to follow David Dejesus MD PATHOLOGY/CYTOLOGY ORDERABLES Performing Organization Address City/[facility]/[place] [address] * Specimen to Pathology (surgical or derm) (03/20/2016 12:43 PM EST) AP Specimen 03/20/2016 12:4 3 PM EST 03/20/2016 12:43 PM EST Narrative [facility] - 03/20/2016 12:43 PM EST Specimen requisition ordered. ??Separate Pathology report to follow David Dejesus MD PATHOLOGY/CYTOLOGY ORDERABLES Performing Organization Address [facility]/[place] [address] * Specimen to Pathology (surgical or derm) (03/20/2016 12:43 PM EST) AP Specimen 03/20/2016 12:4 3 PM EST 03/20/2016 12:43 PM EST Narrative [facility] - 03/20/2016 12:43 PM EST Specimen requisition ordered. ??Separate Pathology report to follow David Dejesus MD PATHOLOGY/CYTOLOGY ORDERABLES Performing Organization Address [facility] [place] [address] * Specimen to Pathology (surgical or derm) (03/20/2016 12:43 PM EST) AP Specimen 03/20/2016 12:4 3 PM EST 03/20/2016 12:43 PM EST Narrative [facility] - 03/20/2016 12:43 PM EST Specimen requisition ordered. ??Separate Pathology report to follow David Dejesus MD PATHOLOGY/CYTOLOGY ORDERABLES Performing Organization Address [facility] [place] [address] * COLONOSCOPY (03/20/2016 11:32 AM EST) COLONOSCOPY [facility] Endoscopy Procedure Date: 03/20/2016 11:32 AM ? Patient Name: Jennifer Irving ? Date of : 1960 ? Age: 55 ? Order #: [id number] ? Instrument Name: [id number] ? Procedure: ? Colonoscopy Indications: ? Screening for colorectal malignant ? neoplasm Providers: ? David Dejesus MD, Geronimo Joyner ? MD Valerie, Tapan Chong RN, ? Theodora Farrell, Media Production Operator Referring : ?David Blue MD Medicines: ? [...] (03/20/2016 11:31 AM EST) UPPER GI ENDOSCOPY [facility] Endoscopy Procedure Date: 03/20/2016 11:31 AM ? Patient Name: Jennifer Irving ? N: [id number] ? Date of : 1960 ? Age: 55 ? Order #: [id number] ? Instrument Name: [id number] ? Procedure: ? Upper GI endoscopy Indications: [...] care under the ? supervision of a ANTHROPOLOGY AND ARCHEOLOGY INSTRUCTOR was determined ? to be medically [...] Glucose, POC 243(H) 65 - 199 mg/dL [facility] Comment: Supplemental ranges: <140 mg/dL before meals <180 mg/dL all other times of the day Blood specimen (specimen) 03/20/2016 10:54 AM EST 03/20/2016 10:54 AM EST David Dejesus MD POINT [place] [address] * (ABNORMAL) POCT Fingerstick Glucose (03/20/2016) Glucose, [...] CRNA) documented in this encounter Care Teams Stylist Assistant Relationship Specialty Start Date End Date David Blue MD [address] [place] [address] PCP - General 04/01/10 02/02/19 documented as of this encounter
--- OUTSIDE RECORDS SUMMARY | 2024-04-19 23:04 | XMS_ITS | Encounter Summary ---
Author Organization [facility] Address [facility] [place] [address] Care Team Providers Care Quartz Cutter Name Role Phone David Blue MD Primary Care Provider [phone] Encounter Details Date Type Department Care Team (Late st Contact Info) Description 02/24/2016 Orders Only Gastroenterology at [place] [phone] David Dejesus MD [facility] [place] [address] Screening breast examination Social History Tobacco Use [...] 04/26/2024 8:30 AM EST Appointment Radiology at [place] [phone] Gavin Carrillo MD [facility] [place] [address] 06/05/2024 1:20 PM EST Office Visit Cardiology at [place] [phone] Milagros Hernandez MD [facility] [place] [address] Scheduled Procedures Name Priority Associated Diagnoses Date/Ti me EGD, UPPER GI ENDOSCOPY (WRV U 2.09) Peptic stricture of esophagus documented as of this encounter Visit Diagnoses Diagnosis Screening breast examination Other screening breast examination documented in this encounter Care Teams Quartz Cutter Relationship Specialty Start Date End Date David Blue MD [address] [place] [address] PCP - General 04/01/10 02/02/19 documented as of this encounter
--- OUTSIDE RECORDS SUMMARY | 2024-04-19 23:04 | XMS_ITS | Encounter Summary ---
Author Organization [facility] [place] [address] Care Team Providers Care Flat Knitter Helper Name Role Phone David Blue MD Primary Care Provider [phone] Encounter Details Date Type Department Care Team (Late st Contact Info) Description 01/15/2011 Ancillary Procedure Radiology Library [place] [phone] Ana Gillespie APRN [address] [place] [address] Social History Tobacco Use Types [...] 04/26/2024 8:30 AM EST Appointment [place] [phone] Gavin Carrillo MD [facility] INTERVENTIONAL RADIOLOGY [place], [place] [phone] 06/05/2024 1:20 PM EST Office Visit Cardiology at [address] [phone] Milagros Hernandez MD [facility] CARDIOLOGY [place], [place] [phone] Scheduled Procedures Name Priority Associated Diagnoses Date/Ti me EGD, UPPER GI ENDOSCOPY (WRV U 2.09) Peptic stricture of esophagus documented as of this encounter Procedures Procedure Name Priority Date/Time Associated Diagnosis Comments FILM LIBRARY STORAGE ONLY MAMMO Routine 01/15/2011 12:00 AM EDT documented in this encounter Results * Film Library- Storage Only Mammo (01/15/2011 12:00 AM EDT) Narrative RAD - 02/13/2019 8:41 AM EDT This exam is auto-finalizing. It's purpose is for storage only. Ana Gillespie APRN [facility] FILM LIBRARY ORD ERABLES [place], [place] documented in this encounter Visit Diagnoses Not on filedocumented in this encounter Care Teams Flat Knitter Helper Relationship Specialty Start Date End Date David Blue MD [address] [place] [address] PCP - General 04/01/10 02/02/19 documented as of this encounter
--- OUTSIDE RECORDS SUMMARY | 2024-04-19 23:04 | XMS_ITS | Encounter Summary ---
Author Organization [facility] Address [address] [place] [address] Care Team Providers Care Customer Retention Specialist Name Role Phone David Blue MD Primary Care Provider [phone] Encounter Details Date Type Department Care Team (Late st Contact Info) Description 07/11/2003 Results Only [facility] - Map conversion [address] [place] [address] Rock Samson MD [address] [place], [place] [address] Social History Tobacco Use Types Packs/Day Years [...] ? JENNIFER IRVING ? Accession #: ? [id number] ? : ? 1960 (Age: 43) ??F [...] ?Appendix with no pathologic features. Comment: ? Manager Fine Dining sections of (A) have been reviewed at the intradepartmental consultation conference, ??A discrepancy between the laterality of the fallopian tube as indicated on the requisition form and the gross impression has been discussed with Dr. Samson' s nursing staff, who indicated that the excised fallopian tube was from the right side. (Dr. Narayan)/[facility] Document reviewed and electronically signed by: [...] A1 ?Anterior cervix A2 ?Posterior cervix A3-A6 ?Manager Fine Dining sections of the anterior intramural mass A7 ?Anterior endomyometrium A8 ?Full thickness endomyometrium A9 ?Manager Fine Dining sections ovary and cyst A10 ?Manager Fine Dining sections fallopian tube and ovary A11 ?Ectocervix Received in formalin labeled Moffett and appendix is a 10.0 cm long x 0.6 cm diameter appendix with a moderate amount of mesoappendix. ??The serosa is unremarkable. ??Serial sectioning reveals a wall thickness that varies from 0.1 to 0.3 cm. ??No fecaliths are identified. ??Four volunteer patient representative sections are submitted as (B), including the resection margin, en face, and the distal tip, bisected. ?? (Dr. Lopez)/[facility] End of Report [facility] 07/11/2003 07/11/2003 15: 14 EST us Rock Samson MD PATHOLOGY ORDERABLES Final Resul t [facility] [address] [place] [address] documented in this encounter Visit Diagnoses Not on filedocumented in this encounter Care Teams Customer Retention Specialist Relationship Specialty Start Date End Date David Blue MD [address] [place] [address] PCP - General 07/15/09 documented as of this encounter
--- OUTSIDE RECORDS SUMMARY | 2024-04-19 23:04 | XMS_ITS | Encounter Summary ---
[place] [address] Care Team Providers Care Frame Nailer Name Role Phone David Blue MD Primary Care Provider [phone] Reason for Visit * Reason Onset Date Comments Prior Authorization 02/26/2016 Encounter Details Date Type Department Care Team (Late st Contact Info) Description 02/26/2016 Tele[place] [address] Francoise Vides CMA GASTROENTEROLOGY DEPT Prior Authorization [...] Prior Authorization 4L Gastroenterology / [place] [address] Subscriber Insurance[place] Physician: David Dejesus Return Pharmacy: [facility] [...] lapse in usage. Tracking number/Case number/Reference number: [id number] Effective date: Start: End: documented in this encounter Plan of Treatment Upcoming Encounters Date Type Department Care Team (Late st Contact Info) Description 04/26/2024 8:30 AM EST Appointment Radiology at [place] [phone] Gavin Carrillo MD [facility] [place] [address] 06/05/2024 1:20 PM EST Office Visit Cardiology at [place] [phone] Milagros Hernandez MD [facility] [place] [place] [address] Scheduled Procedures Name Priority Associated Diagnoses Date/Ti me EGD, UPPER GI ENDOSCOPY (WRV U 2.09) Peptic stricture of esophagus documented as of this encounter Visit Diagnoses Not on filedocumented in this encounter Care Teams Frame Nailer Relationship Specialty Start Date End Date David Blue MD [address] [place] [address] PCP - General 04/01/10 02/02/19 documented as of this encounter
--- OUTSIDE RECORDS SUMMARY | 2024-04-19 23:04 | XMS_ITS | Encounter Summary ---
Author Organization [facility] Address [address] [place] [address] Care Team Providers Care Senior Biostatistician Name Role Phone David Blue MD Primary Care Provider [phone] Encounter Details Date Type Department Care Team (Late st Contact Info) Description 05/08/2003 Results Only [facility] [place] conversion [address] [place] [address] Rock Samson MD [address] [place], [place] [address] Social History Tobacco Use Types Packs/Day Years [...] End of Report [facility] 05/08/2003 05/11/2003 us Rock Samson MD PATHOLOGY ORDERABLES Final Resul t [facility] [address] [place] [address] documented in this encounter Visit Diagnoses Not on filedocumented in this encounter Care Teams Senior Biostatistician Relationship Specialty Start Date End Date David Blue MD [address] [place] [address] PCP - General 07/15/09 documented as of this encounter
--- OUTSIDE RECORDS SUMMARY | 2024-04-19 23:04 | XMS_ITS | Encounter Summary ---
Author Organization [facility] Address [address] [place] [address] Care Team Providers Care Exhibit Builder Name Role Phone David Blue MD Primary Care Provider [phone] Encounter Details Date Type Department Care Team (Late st Contact Info) Description 12/23/2000 Results Only [facility] - Map conversion [address] [place] [address] Rock Samson MD [address] [place], [place] [address] Social History Tobacco Use Types Packs/Day Years [...] ? JENNIFER IRVING ? Accession #: ? [id number] : ? 1960 (Age: 40) ??F ?Collect [...] End of Report [facility] 12/23/2000 12/24/2000 us Rock Samson MD PATHOLOGY ORDERABLES Final Resul t [facility] [address] [place] [address] documented in this encounter Visit Diagnoses Not on filedocumented in this encounter Care Teams Exhibit Builder Relationship Specialty Start Date End Date David Blue MD [address] [place] [address] PCP - General 07/15/09 documented as of this encounter
--- OUTSIDE RECORDS SUMMARY | 2024-04-19 23:04 | XMS_ITS | Encounter Summary ---
Author Organization [facility] Address [facility] [place] [address] Care Team Providers Care Transportation Security Screener Name Role Phone Ana Gillespie APRN Primary Care Provider [phone] Encounter Details Date Type Department Care Team (Late st Contact Info) Description 09/06/2009 Orders Only Gynecology Oncology at [place] [phone] Kathy Romero MD [facility] [place] [address] Social History Tobacco Use Types Packs/Day Years Used Date Smoking Tobacco: Never Assessed Sex and Gender Information Value Date Recorded Sex Assigned at Not on file Gender Identity Not on file Sexual Orientation Not on file documented as of this encounter Plan of Treatment Upcoming Encounters Date Type Department Care Team (Late st Contact Info) Description 04/26/2024 8:30 AM EST Appointment Radiology at [place] [phone] Gavin Carrillo MD [facility] [place] [address] 06/05/2024 1:20 PM EST Office Visit Cardiology at [address] [phone] Milagros Hernandez MD [facility] [place] [address] Scheduled Procedures Name Priority Associated Diagnoses Date/Ti me EGD, UPPER GI ENDOSCOPY (WRV U 2.09) Peptic stricture of esophagus documented as of this encounter Procedures Procedure Name Priority Date/Time Associated Diagnosis Comments SURGICAL PATHOLOGY REPORT Routine 09/06/2009 2:34 PM EDT documented in this encounter Results * Surgical Pathology Report (09/06/2009 2:34 PM EDT) Pathologist [facility] Surgical Pathology Report [id number] ? Location: [facility] The signing pathologist has (i) [...] fibromembranous, and fibrofatty tissues. ??Sectioning reveals a 2.9-kd-tw-greates t- dimension, clear fluid-filled, smooth-lined cyst with surrounding rubbery, estrada-white tissue. Sections/Processi ng: ??A rental sales representative section is submitted for frozen ?section. ??The frozen section residue is submitted in ?(A1). ??Additional rental sales representative sections are ?submitted. (R4) ??aje/EJR Microscopic Description Slides reviewed, microscopic description not recorded. Diagnosis Left pelvic mass, excision for frozen section: ?? 1 - Benign cystic lesion (see Comment). ?? 2 - Adjacent benign ovarian parenchyma. CR-0 09/10/09 ARS 09/10/09 Verified by: ? Viktor Madrigal MD ?Pathologist ?(Electronic Signature) The attending pathologist whose [...] documented as of this encounter Care Teams Transportation Security Screener Relationship Specialty Start Date End Date Ana Gillespie APRN [address] [place] [address] PCP - General Family Medicine 02/03/19 documented as of this encounter
--- OUTSIDE RECORDS SUMMARY | 2024-04-19 23:04 | XMS_ITS | Encounter Summary ---
Author Organization [facility] [place] [address] Care Team Providers Care Pill Coater Name Role Phone David Blue MD Primary Care Provider [phone] Encounter Details Date Type Department Care Team (Late st Contact Info) Description 04/03/2014 11:30 AM EST - 04/03/2014 12:00 PM EST Surgery Gastroenterology at [facility] [place] [address] David Dejesus MD [facility] DR [place] [address] EGD, UPPER GI ENDOSCOPY (WRVU 2.09) Social [...] - 04/03/2014 12:48 PM EST Please call [phone], before 5pm with problems, questions or concerns, after 5pm call the Hospital at [phone] and ask to speak to the Drier And Pulverizer Tender environmental services worker and the loom operator will contactthat person for you. [...] Everywhere. * EGD (UPPER ENDOSCOPY) : POST-OP (NORWEGIAN) documented in this encounter Medications at Time [...] 04/26/2024 8:30 AM [place] [phone] Gavin Carrillo MD [facility] DR INTERVENTIONAL [place] [address] 06/05/2024 1:20 PM EST Office Visit Cardiology at [address] [phone] Milagros Hernandez MD [facility] [place] [address] Scheduled Procedures Name Priority Associated Diagnoses Date/Ti [...] (04/03/2014 12:37 PM EST) Final Diagnosis ? [facility] ? Provider: ?? DAVID DEJESUS ??Pt. Name: ?? JENNIFER IRVING ? Acc #: ?[id number] ?Pt. ? Col Date: ?? 04/03/2014 ?/Sex: [...] - Labeled/Fixativ e: Duodenal bulb, formalin. ? [facility] ? Provider: ?? DAVID DEJESUS ??Pt. Name: ?? JENNIFER IRVING ? Acc #: ?[id number] ?Pt. ? Col Date: ?? 04/03/2014 ?/Sex: [...] Diagnosis: ? Same 04/04/2014 9:11 PM EST [facility] GI Biopsy 04/03/2014 12:3 7 PM EST 04/03/2014 12:37 PM EST GI Biopsy 04/03/2014 12:3 7 PM EST 04/03/2014 12:37 PM EST GI Biopsy 04/03/2014 12:3 7 PM EST 04/03/2014 12:37 PM EST GI Biopsy 04/03/2014 12:3 7 PM EST 04/03/2014 12:37 PM EST David Dejesus MD PATHOLOGY/CYTOLOGY ORDERABLES Performing Organization Address [facility] Co de Phone Number DARCY [facility] [place] [address] * Specimen to Pathology (surgical or derm) (04/03/2014 12:37 PM EST) AP Specimen 04/03/2014 12:3 7 PM EST 04/03/2014 12:37 PM EST Narrative CERNER MILLENNIUM - 04/03/2014 12:37 PM EST Specimen requisition ordered. ??Separate Pathology report to follow David Dejesus MD PATHOLOGY/CYTOLOGY ORDERABLES Performing Organization Address [facility] Co de Phone Number [facility] * Specimen to Pathology (surgical or derm) (04/03/2014 12:37 PM EST) AP Specimen 04/03/2014 12:3 7 PM EST 04/03/2014 12:37 PM EST Narrative CERNER MILLENNIUM - 04/03/2014 12:37 PM EST Specimen requisition ordered. ??Separate Pathology report to follow David Dejesus MD PATHOLOGY/CYTOLOGY ORDERABLES Performing Organization Address [facility]/ZIP Co de Phone Number DARCY BARNETT * Specimen to Pathology (surgical or derm) (04/03/2014 12:37 PM EST) AP Specimen 04/03/2014 12:3 7 PM EST 04/03/2014 12:37 PM EST Narrative DARCY BARNETT - 04/03/2014 12:37 PM EST Specimen requisition ordered. ??Separate Pathology report to follow David Dejesus MD PATHOLOGY/CYTOLOGY ORDERABLES Performing Organization Address [facility] Co de Phone Number DARCY BARNETT * Specimen to Pathology (surgical or derm) (04/03/2014 12:37 PM EST) AP Specimen 04/03/2014 12:3 7 PM EST 04/03/2014 12:37 PM EST Narrative DARCY BARNETT - 04/03/2014 12:37 PM EST Specimen requisition ordered. ??Separate Pathology report to follow David Dejesus MD PATHOLOGY/CYTOLOGY ORDERABLES Performing Organization Address [facility] Co de Phone Number DARCY BARNETT * UPPER GI ENDOSCOPY (04/03/2014 12:06 PM EST) UPPER GI ENDOSCOPY [facility] Endoscopy Patient Name: Jennifer Irving ? Procedure Date: 04/03/2014 12:06 PM ? N: [id number] ? Date of : 1960 ? Age: 53 ? Order #: [id number] ? Procedure: ? Upper GI endoscopy Indications: [...] Elizabeth Celis RN)1213 (Given - Provider: Elizabeth Celis, RN)1218 (Given - Provider: Elizabeth Celis RN) documented in this encounter Care Teams Pill Coater Relationship Specialty Start Date End Date David Blue MD [address] [place] [address] PCP - General 04/01/10 02/02/19 documented as of this encounter
--- OUTSIDE RECORDS SUMMARY | 2024-04-19 23:04 | XMS_ITS | Encounter Summary ---
Author Organization [facility] Address [address] [place] [address] Care Team Providers Care Tan Room Supervisor Name Role Phone David Blue MD Primary Care Provider [phone] Encounter Details Date Type Department Care Team (Late st Contact Info) Description 03/06/2021 Lab Requisition [facility] Pathology & Laboratory Medicine - [facility] [address] [place], [place] [address] Outr Resulting Lab, Provider Social History Tobacco [...] B Surface Ag Negative Negative 03/07/20 10:41 T [facility] Hep B Surface Ab, Quantitative <3.1 See Note mIU/mL 03/07/2021 10:41 T [facility] Comment: Reference Range for Hep B Surface Ab, Quant: Positive: >= 10.0 mIU/mL Negative: ??< 10.0 mIU/mL Patient is presumed to not be immune to infection with Hepatitis B Virus. Hep B Surface Ab, Qualitative Negative See Note 03/07/2021 10:41 EDT [facility] Comment: Reference Range for Hep B Surface Ab, Qual: Unvaccinated: ??Negative Vaccinated: ??Positive Hepatitis B Core Ab, Total Negative Negative 03/07/2021 10:41 EDT [facility] Hep C Antibody Negative Negative 03/07/2021 10:41 EDT [facility] Blood VENOUS BLOOD / Unknown 03/06/2021 7:10 EDT 03/06/2021 16:38 EDT us Provider Outr Resulting Lab CHEMISTRY & BLOOD GA S ORDERABLES Final Result [facility] [address] [place] [address] documented in this encounter Visit Diagnoses Not on filedocumented in this encounter Care Teams Tan Room Supervisor Relationship Specialty Start Date End Date David Blue MD [address] [place] [address] PCP - General 07/15/09 documented as of this encounter
--- OUTSIDE RECORDS SUMMARY | 2024-04-19 23:04 | XMS_ITS | Encounter Summary ---
Author Organization [facility] Address [facility] [place] [address] Care Team Providers Care Medical Collections Name Role Phone David Blue MD Primary Care Provider [phone] Encounter Details Date Type Department Care Team (Late st Contact Info) Description 12/14/2014 Orders Only Endocrinology at [place] [phone] Dean Caban MD [facility] [place] [address] Type 2 diabetes mellitus, uncontrolled Social History [...] 04/26/2024 8:30 AM EST Appointment Radiology at [place] [phone] Gavin Carrillo MD [facility] [place] [address] 06/05/2024 1:20 PM EST Office Visit Cardiology at [address] [phone] Milagros Hernandez MD [facility] [place] [address] Scheduled Procedures Name Priority Associated Diagnoses Date/Ti me EGD, UPPER GI ENDOSCOPY (WRV U 2.09) Peptic stricture of esophagus documented as of this encounter Visit Diagnoses Diagnosis Type 2 diabetes mellitus, uncontrolled Type II or unspecified type diabetes mellitus without mention of complication, uncontrolled documented in this encounter Care Teams Medical Collections Relationship Specialty Start Date End Date David Blue MD [address] [place] [address] PCP - General 04/01/10 02/02/19 documented as of this encounter
--- OUTSIDE RECORDS SUMMARY | 2024-04-19 23:04 | XMS_ITS | Encounter Summary ---
[place] [address] Care Team Providers Care Controls Project Engineer Name Role Phone David Blue MD Primary Care Provider [phone] Reason for Visit * Reason Onset Date Comments Weight Management 04/19/2013 Encounter Details Date Type Department Care Team ([facility] st Contact Info) Description 04/19/2013 Telephone Pediatric & Adolescent Medicine at [address] [phone] Guanakito Cronin MD [address] [place] [address] Weight Management Social History Tobacco Use Types [...] 04/26/2024 8:30 AM EST App[place] [address] Gavin Carrillo MD [facility] [place] [address] 06/05/2024 1:20 PM EST Office Visit Cardiology at [address] [phone] Milagros Hernandez MD [facility] [place] [address] Scheduled Procedures Name Priority Associated Diagnoses Date/Ti me EGD, UPPER GI ENDOSCOPY (WRV U 2.09) Peptic stricture of esophagus documented as of this encounter Visit Diagnoses Not on filedocumented in this encounter Care Teams Controls Project Engineer Relationship Specialty Start Date End Date David Blue MD [address] [place] [address] PCP - General 04/01/10 02/02/19 documented as of this encounter
--- OUTSIDE RECORDS SUMMARY | 2024-04-19 23:04 | XMS_ITS | Encounter Summary ---
Author Organization [facility] Address [facility] [place] [address] Care Team Providers Care Data Security Administrator Name Role Phone Ana Gillespie APRN Primary Care Provider [phone] Encounter Details Date Type Department Care Team (Late st Contact Info) Description 09/06/2009 Orders Only Gynecology Oncology at [place] [phone] Kathy Romero MD [facility] [address] Social History Tobacco Use Types Packs/Day Years Used Date Smoking Tobacco: Never Assessed Sex and Gender Information Value Date Recorded Sex Assigned at Not on file Gender Identity Not on file Sexual Orientation Not on file documented as of this encounter Plan of Treatment Upcoming Encounters Date Type Department Care Team (Late st Contact Info) Description 04/26/2024 8:30 AM EST Appointment Radiology at [place] [phone] Gavin Carrillo MD [facility] [place] [address] 06/05/2024 1:20 PM EST Office Visit Cardiology at [address] [phone] Milagros Hernandez MD [facility] [place] [address] Scheduled Procedures Name Priority Associated Diagnoses Date/Ti me EGD, UPPER GI ENDOSCOPY (WRV U 2.09) Peptic stricture of esophagus documented as of this encounter Procedures Procedure Name Priority Date/Time Associated Diagnosis Comments NON-ROLL DOUGH DIVIDER FINAL REPORT Routine 09/06/2009 12:50 PM EDT documented in this encounter Results * Non-Prosthodontist Final Report (09/06/2009 12:50 PM EDT) Non-Prosthodontist Final Report [id number] ? Location: [facility] The signing pathologist has (i) examined the relevant preparation(s) for the specimen(s) and (ii) rendered or confirmed the diagnosis(es). . ? Pathology Non-Prosthodontist Cytology Final Report Clinical Information Specimen Source: [...] cytologic impression. ??Please see concurrent surgical specimen, [id number], for additional information. [facility] 09/06/2009 12:5 0 PM EDT Kathy Romero MD PATHOLOGY/CYTOLOGY O RDERABLES [facility] documented in this encounter Visit Diagnoses Not on filedocumented in this encounter Additional Health Concerns Infection Onset Date Last Indicated Resolved Time Rule Out COVID-19 08/15/2022 08/15/2022 08/15/2022 11:30 AM EDT Rule Out COVID-19 08/15/2022 08/15/2022 08/15/2022 3:01 PM EDT Rule Out C. difficile 08/19/2022 08/19/20222022 8:33 PM EDT documented as of this encounter Care Teams Data Security Administrator Relationship Specialty Start Date End Date Ana Gillespie APRN [address] [place] [address] PCP - General Family Medicine 02/03/19 documented as of this encounter
--- OUTSIDE RECORDS SUMMARY | 2024-04-19 23:04 | XMS_ITS | Encounter Summary ---
Author Organization [facility] Address [address] [place] [address] Care Team Providers Care Senior Electrical Engineer Name Role Phone David Blue MD Primary Care Provider [phone] Encounter Details Date Type Department Care Team (Late st Contact Info) Description 01/08/2006 Results Only [facility] - Maple conversion [address] [place] [address] Sergey Kraus, DO [address] [facility] ,[address] [place] [address] Social History Tobacco Use Types [...] ? JENNIFER IRVING ? Accession #: ? [id number] ? : ? 1960 (Age: 45) ??F [...] s esophagitis Gross Description: ? Received in Hollande's fixative labelled Aristides and bx antrum is [...] [facility] 01/08/2006 01/09/2006 10: 17 EDT us Sergey Kraus DO PATHOLOGY ORDERABLES Fi nal Result [facility] [address] [place] [address] documented in this encounter Visit Diagnoses Not on filedocumented in this encounter Care Teams Senior Electrical Engineer Relationship Specialty Start Date End Date David Blue MD [address] [place] [address] PCP - General 07/15/09 documented as of this encounter
--- OUTSIDE RECORDS SUMMARY | 2024-04-19 23:04 | XMS_ITS | Encounter Summary ---
Author Organization [facility] Address [address] [place] [address] Care Team Providers Care Rim Fire Priming Tool Setter Name Role Phone David Blue MD Primary Care Provider [phone] Encounter Details Date Type Department Care Team (Late st Contact Info) Description 10/30/2003 Results Only [facility] - Maple conversion [address] [place] [address] Sergey Kraus, DO [address] [facility] ,[address] [place] [address] Social History Tobacco Use Types [...] ? JENNIFER IRVING ? Accession #: ? [id number] ? : ? 1960 (Age: 43) ??F ? Collect Date: ? 10/30/2003 ? Location: ? [facility] ? Receive Date: ? 10/30/2003 ? Provider: SERGEY KRAUS DO Copy to: DVAID BLUE MD ? Final Pathologic Diagnosis: A. [...] specimen is entirely submitted as (C). ??(Dr. Haney-OFELIA)/[facility] End of Report [facility] 10/30/2003 10/30/2003 14: 43 EDT us Sergey Kraus DO PATHOLOGY ORDERABLES Fi nal Result [facility] [address] [place] [address] documented in this encounter Visit Diagnoses Not on filedocumented in this encounter Care Teams Rim Fire Priming Tool Setter Relationship Specialty Start Date End Date David Blue MD [address] [place] [address] PCP - General 07/15/09 documented as of this encounter
--- OUTSIDE RECORDS SUMMARY | 2024-04-19 23:04 | XMS_ITS | Encounter Summary ---
Author Organization [facility] Address [address] [place] [address] Care Team Providers Care Action Finisher Name Role Phone David Blue MD Primary Care Provider [phone] Encounter Details Date Type Department Care Team (Late st Contact Info) Description 08/13/2022 Lab Requisition [facility] Pathology & Laboratory Medicine - [facility] [address] [place], [place] [address] Outr Resulting Lab, Provider Social History Tobacco [...] Antigen Detection Negative Negative 08/13/2022 23:31 EDT [facility] Urine URINE / Unknown 08/12/2022 1 8:12 EDT 08/13/2022 18:30 EDT us Provider Outr Resulting Lab MICROBIOLOGY - GENER AL ORDERABLES Final Result [facility] [address] [place] [address] documented in this encounter Visit Diagnoses Not on filedocumented in this encounter Care Teams Action Finisher Relationship Specialty Start Date End Date David Blue MD [address] [place] [address] PCP - General 07/15/09 documented as of this encounter
--- OUTSIDE RECORDS SUMMARY | 2024-04-19 23:04 | XMS_ITS | Encounter Summary ---
Author Organization [facility] Address [facility] [place] [address] Care Team Providers Care Tank Truck Engine Mechanic Name Role Phone David Blue MD Primary Care Provider [phone] Encounter Details Date Type Department Care Team (Latest Contact Info) Description 04/03/2014 10:08 AM EST - 04/03/2014 2:04 PM EST Hospital Encounter Gastroenterology at [facility] [place] [address] David Dejesus MD [facility] [place] [address] Discharge Disposition: Home Social History Tobacco Use [...] - 04/03/2014 12:48 PM EST Please call [phone], before 5pm with problems, questions or concerns, after 5pm call the Hospital at [phone] and ask to speak to the Door Clamper consumer lending manager and the icer machine operator will contactthat person for you. [...] Everywhere. * EGD (UPPER ENDOSCOPY) : POST-OP (NAMIBIAN) documented in this encounter Medications at Time [...] 04/26/2024 8:30 AM EST [place] [phone] Gavin Carrillo MD [facility] [place] [address] 06/05/2024 1:20 PM EST Office Visit Cardiology at [address] [phone] Milagros Hernandez MD [facility] [place] [address] Scheduled Procedures Name Priority Associated Diagnoses Date/Ti [...] (04/03/2014 12:37 PM EST) Final Diagnosis ? [facility] ? Provider: ?? DAVID DEJESUS ??Pt. Name: ?? ISHAN IRVING ? Acc #: ?[id number] ?Pt. ? Col Date: ?? 04/03/2014 ?/Sex: [...] - Labeled/Fixativ e: Duodenal bulb, formalin. ? [facility] ? Provider: ?? DAVID DEJESUS ??Pt. Name: ?? ISHAN IRVING ? Acc #: ?[id number] ?Pt. ? Col Date: ?? 04/03/2014 ?/Sex: [...] Dejesus MD PATHOLOGY/CYTOLOGY ORDERABLES Performing Organization Address [facility] Co de Phone Number [facility] [place] [address] * Specimen to Pathology (surgical or derm) (04/03/2014 12:37 PM EST) AP Specimen 04/03/2014 12:3 7 PM EST 04/03/2014 12:37 PM EST Narrative CERNER MILLMELISSAIUM - 04/03/2014 12:37 PM EST Specimen requisition ordered. ??Separate Pathology report to follow David Dejesus MD PATHOLOGY/CYTOLOGY ORDERABLES Performing Organization Address [facility] de Phone Number DARCY GALINDONAZIA * Specimen to Pathology (surgical or derm) (04/03/2014 12:37 PM EST) AP Specimen 04/03/2014 12:3 7 PM EST 04/03/2014 12:37 PM EST Narrative CERNER MILLENNIUM - 04/03/2014 12:37 PM EST Specimen requisition ordered. ??Separate Pathology report to follow David Dejesus MD PATHOLOGY/CYTOLOGY ORDERABLES Performing Organization Address [facility]/State/[facility] Co de Phone Number [facility] * Specimen to Pathology (surgical or derm) (04/03/2014 12:37 PM EST) AP Specimen 04/03/2014 12:3 7 PM EST 04/03/2014 12:37 PM EST Narrative DARCY BARNETT - 04/03/2014 12:37 PM EST Specimen requisition ordered. ??Separate Pathology report to follow David Dejesus MD PATHOLOGY/CYTOLOGY ORDERABLES Performing Organization Address [facility] Co de Phone Number [facility] * Specimen to Pathology (surgical or derm) (04/03/2014 12:37 PM EST) AP Specimen 04/03/2014 12:3 7 PM EST 04/03/2014 12:37 PM EST Narrative DARCY BARNETT - 04/03/2014 12:37 PM EST Specimen requisition ordered. ??Separate Pathology report to follow David Dejesus MD PATHOLOGY/CYTOLOGY ORDERABLES Performing Organization Address [facility] Co de Phone Number [facility] * UPPER GI ENDOSCOPY (04/03/2014 12:06 PM EST) UPPER GI ENDOSCOPY [facility] Endoscopy Patient Name: Ishan Irving ? Procedure Date: 04/03/2014 12:06 PM ? Date of : 1960 ? Age: 53 ? Order #: [id number] ? Procedure: ? Upper GI endoscopy Indications: [...] Elizabeth Celis RN)1213 (Given - Provider: Elizabeth eClis RN)1217 (Given - Provider: Elizabeth Celis RN) midazolam (PF) (VERSED) 1 mg/mL injection (CANCELED) ONCE PRN, Starting on Wed04/03/14 at 1212, Until Wed04/03/14 at 1326, Intra-Operative (Intra-Procedure), Routine 1212 (Given - Provid er: Elizabeth Celis RN)1213 (Given - Provider: Elizabeth Celis RN)1218 (Given - Provider: Elizabeth Celis RN) documented in this encounter Care Teams Tank Truck Engine Mechanic Relationship Specialty Start Date End Date David Blue MD [address] [place] [address] PCP - General 04/01/10 02/02/19 documented as of this encounter
--- OUTSIDE RECORDS SUMMARY | 2024-04-19 23:04 | XMS_ITS | Encounter Summary ---
Author Organization [facility] [place] [address] Care Team Providers Care In House Cra Name Role Phone David Blue MD Primary Care Provider [phone] Encounter Details Date Type Department Care Team (Late st Contact Info) Description 03/19/2016 Telephone [place] [phone] Angela Thompson Social History Tobacco Use Types Packs/Day Years Used Date Smoking Tobacco: Every Day Smokeless Tobacco: Never Sex and Gender Information Value Date Recorded Sex Assigned at Not on file Gender Identity Not on file Sexual Orientation Not on file documented as of this encounter Miscellaneous Notes * Telephone Encounter - Angela Palacios - 03/19/2016 9:36 AM EST Caller: technical supervisor from [place], [place] Call for: MA's Reason for call: [...] 04/26/2024 8:30 AM EST Appointment [place] [phone] Gavin Carrillo MD [facility] [place] [address] 06/05/2024 1:20 PM EST Office Visit Cardiology at [address] [phone] Milagros Hernandez MD [facility] [place] [address] Scheduled Procedures Name Priority Associated Diagnoses Date/Ti me EGD, UPPER GI ENDOSCOPY (WRV U 2.09) Peptic stricture of esophagus documented as of this encounter Visit Diagnoses Not on filedocumented in this encounter Care Teams In House Cra Relationship Specialty Start Date End Date David Blue MD [address] [place] [address] PCP - General 04/01/10 02/02/19 documented as of this encounter
--- OUTSIDE RECORDS SUMMARY | 2024-04-19 23:04 | XMS_ITS | Encounter Summary ---
Author Organization [facility] Address [address] [place] [address] Care Team Providers Care E Marketing Specialist Name Role Phone [place] Blue MD Primary Care Provider [phone] Encounter Details Date Type Department Care Team (Late st Contact Info) Description 04/28/2002 Results Only [facility] - Maple conversion [address] [place] [address] [place], [place] [phone] Social History Tobacco Use Types Packs/Day Years [...] ? JENNIFER IRVING ? Accession #: ? [id number] : ? 1960 (Age: 41) ??F ?Collect [...] End of Report [facility] 04/28/2002 05/04/2002 us Olamide Mcclain CNM PATHOLOGY ORDERABLES Final Res ult Performing Organization Address City/State/[facility] Co de Phone Number [facility] [address] [place] [address] documented in this encounter Visit Diagnoses Not on filedocumented in this encounter Care Teams E Marketing Specialist Relationship Specialty Start Date End Date David Blue MD [address] [place] [address] PCP - General 07/15/09 documented as of this encounter
--- OUTSIDE RECORDS SUMMARY | 2024-04-19 23:04 | XMS_ITS | Encounter Summary ---
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 last 04/03/14 Procedures PRO UPPER GI ENDOSCOPY, DIAGNOSTIC PRO COLONOSCOPY, DIAGNOSTIC EGD, UPPER GI ENDOSCOPY Referral ID Status Reason Start Date Expiration Date Visits Re quested Visits Authorized [id number] 1 1 Encounter Details Date Type Department Care Team (Late st Contact Info) Description 03/20/2016 11:24 AM EST Anesthesia [place] [address] Calli Jean MD [facility] [place] [address] Geronimo Del Toro, [address] ANESTHESIOLOGY [place] [address] Anesthesia Record Procedure Summary Procedure Name Responsible [...] Calli Jean - 03/21/2016 9:50 AM EST [facility] [place] of Anesthesiology Post-procedure Note Patient: Jennifer Irving Procedure Summary Date Anesthesia Start Anesthesia Stop Room / Location 03/20/16 1124 1240 [facility] 3 / [facility] Procedure Diagnosis Surgeon Responsible Provider EGD WITH BIOPSY (N/A Trunk); COLONOSCOPY FLEXIBLE, WITH BX (N/A Trunk) (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 Level of [...] ENDOSCOPY performed by David Dejesus MD at [facility] ??? Pro upper gi endoscopy, biopsy N/A 04/03/2014 UPPER GASTROINTESTINAL ENDOSCOPY,WITH BIOPSY SINGLE OR MULTIPLE performed by David Dejesus MDat [facility] Social History Substance Use Topics [...] discussed with patient. Plan discussed with DATA OFFICER. PAT Staff Note documented in this encounter Plan of Treatment Upcoming Encounters Date Type Department Care Team (Late st Contact Info) Description 04/26/2024 8:30 AM [place] [address] Gavin Carrillo MD [facility] [place] [address] 06/05/2024 1:20 PM EST Office Visit Cardiology [place] [address] [place] [address] Milagros Hernandez MD [facility] [place] [address] Scheduled Procedures Name Priority Associated Diagnoses Date/Ti [...] r documented in this encounter Care Teams Electrophysiology Scientist Relationship Specialty Start Date End Date David Blue MD [address] [place] [address] PCP - General 04/01/10 02/02/19 documented as of this encounter
--- OUTSIDE RECORDS SUMMARY | 2024-04-19 23:04 | XMS_ITS | Encounter Summary ---
Author Organization [facility] Address [address] [place] [address] Care Team Providers Care Cab Driver Name Role Phone David Blue MD Primary Care Provider [phone] Encounter Details Date Type Department Care Team (Late st Contact Info) Description 02/01/2023 Lab Requisition [facility] Pathology & Laboratory Medicine - [facility] [address] [place], [place] [id number] Outr Resulting Lab, Provider Social History Tobacco [...] See Note ??g/mL 02/01/2023 17:40 EDT [facility] Comment: NOTE: Reference Ranges: Trough: ??10.0 - 20.0 ug/mL Peak: ??25.0 - 50.0 ug/mL Blood VENOUS BLOOD / Unknown 02/01/2023 7:55 EDT 02/01/2023 17:12 EDT us Provider Outr Resulting Lab CHEMISTRY & BLOOD GA S ORDERABLES Final Result [facility] [address] [place] [address] documented in this encounter Visit Diagnoses Not on filedocumented in this encounter Care Teams Cab Driver Relationship Specialty Start Date End Date David Blue MD [address] [place] [address] PCP - General 07/15/09 documented as of this encounter
--- OUTSIDE RECORDS SUMMARY | 2024-04-19 23:04 | XMS_ITS | Encounter Summary ---
[place] [address] Care Team Providers Care Stamp Classifier Name Role Phone David Blue MD Primary Care Provider [phone] Reason for Visit * Reason Onset Date Comments Prior Authorization 12/17/2014 Encounter Details Date Type Department Care Team (Late st Contact Info) Description 12/17/2014 Telephone [place] [address] Radha Urena Prior Authorization Social History Tobacco [...] 12/17/2014 12:44 PM EDT Medication Prior Authorization SUASNNE Medication name/dose/directions: TANZEUM - Inject 30 mg subcutaneously once a week. Rationale for request: TYPE II DM Health [place]: [place] Authorizing door to door sales representative name: BRYANT Faxed to health plan on: 12/17/14 Health plan decision: APPROVED Quantity approved: 4 FOR 30 DAYS Authorization number: [id number] Start date: 12/20/14 End date: 12/21/15 Patient notified? Pharmacy notified? documented in this encounter Plan of Treatment Upcoming Encounters Date Type Department Care Team (Late st Contact Info) Description 04/26/2024 8:30 AM EST Appointment [place] [address] Gavin Carrillo MD [facility] [place] [address] 06/05/2024 1:20 PM EST Office Visit Cardiology at [address] [address] Milagros Hernandez MD [facility] [place] [address] Scheduled Procedures Name Priority Associated Diagnoses Date/Ti me EGD, UPPER GI ENDOSCOPY (WRV U 2.09) Peptic stricture of esophagus documented as of this encounter Visit Diagnoses Not on filedocumented in this encounter Care Teams Stamp Classifier Relationship Specialty Start Date End Date David Blue MD [address] [place] [address] PCP - General 04/01/10 02/02/19 documented as of this encounter
--- OUTSIDE RECORDS SUMMARY | 2024-04-19 23:04 | XMS_ITS | Encounter Summary ---
Author Organization [facility] Address [facility] [place] [address] Care Team Providers Care Fireperson Name Role Phone David Blue MD Primary Care Provider [phone] Encounter Details Date Type Department Care Team (Late st Contact Info) Description 12/24/2014 Orders Only Gastroenterology at [place] [phone] David Dejesus MD [facility] [place] [address] Social History Tobacco Use Types Packs/Day Years [...] 04/26/2024 8:30 AM EST Appointment Radiology at [place] [phone] Gavin Carrillo MD [facility] [place] [address] 06/05/2024 1:20 PM EST Office Visit Cardiology at [address] [address] Milagros Hernandez MD [facility] [place] [address] Scheduled Procedures Name Priority Associated Diagnoses Date/Ti me EGD, UPPER GI ENDOSCOPY (WRV U 2.09) Peptic stricture of esophagus documented as of this encounter Visit Diagnoses Not on filedocumented in this encounter Care Teams Fireperson Relationship Specialty Start Date End Date David Blue MD [address] [place] [address] PCP - General 04/01/10 02/02/19 documented as of this encounter
--- NOTE | 2024-04-19 23:05 | ED.GENADUL_ITS ---
Discharge Plan Disposition Patient Disposition: Admit to [facility] Condition: Stable Discharge Details Chief Complaint: RespSymp Clinical Impression: Acute hypoxic respiratory failure, COPD (chronic obstructive pulmonary disease) with acute bronchitis Primary Care Provider: Ana Gillespie ED Provider: Jagdeep Cuba Home Meds and New Rx's Prescriptions: No Action bupropion HCl 100 mg tablet 300 mg PO DAILY Patient Comments: via g-tube, per pcp ov notes 12/09/22 RH protein Powder See Rx Instructions PO .COMPLEX Rx Instructions: 2 scoops daily duloxetine [Cymbalta] 20 mg capsule,delayed release(DR/EC) 20 mg PO HS Patient Comments: TAKE 1 CAPSULE PER DAY VIA G-TUBE IN THE EVENING duloxetine [Cymbalta] 60 mg capsule,delayed release(DR/EC) 60 mg PO DAILY sacubitril-valsartan [Entresto] 24-26 mg tablet 1 tab feeding tube BID Patient Comments: via g-tube Jardiance 10 mg tablet 10 mg PO DAILY atorvastatin 80 mg tablet 80 mg PO DAILY valproic acid (as sodium salt) 250 mg/5 mL solution 300 mg PO TID Rx Instructions: 6mls TID metoprolol succinate 50 mg tablet extended release 24 hr 25 mg PO BID sucralfate 1 gram tablet 1 g PO QID Patient Comments: TAKE ONE TABLET BY MOUTH FOUR TIMES A DAY folic acid 1 mg Tablet 1 mg PO DAILY Qty: 0 0RF ferrous sulfate 300 mg (60 mg iron)/5 mL liquid 300 mg feeding tube .QOD Patient Comments: TAKE 5ML VIA G-TUBE EVERY OTHER DAY Humulin N NPH Insulin KwikPen 100 unit/mL (3 mL) insulin pen See Rx Instructions .ROUTE .COMPLEX Qty: 0 0RF Rx Instructions: 20 units at 11 am followed by sliding scale at 3 pm (5 units for blood sugar of 250 plus 1 additional unit for any 20 points that the blood sugar is above 250) ibuprofen 100 mg/5 mL suspension 600 mg PO Q8H PRN guaifenesin 200 mg/5 mL liquid 200 mg feeding tube Q4H PRNQty: 118 0RF aspirin 81 mg tablet,chewable 81 mg feeding tube DAILY Qty: 30 0RF acetaminophen 500 mg/15 mL liquid 1,000 mg PO Q8H PRNQty: 237 2RF nystatin 100,000 unit/gram powder 1 applic TOPICAL TID PRN Patient Comments: APPLY TO BUTTOCKS THREE TIMES A DAY NEEDED pantoprazole [address] for susp in packet 40 mg G-tube DAILY Patient Comments: Take 1 packet via g-tube twice a day Administer in 10 mL of apple juice via g-tub, then follow with another 10 mL. nystatin 100,000 unit/gram cream 1 applic TOPICAL TID PRN Patient Comments: APPLY A SMALL AMOUNT TO AFFECTED AREA(S) ON BUTTOCKS THREE TIMES A DAY NEEDED melatonin 3 mg tablet 9 mg feeding tube HS Patient Comments: TAKE THREE TABLETS VIA G-TUBE EVERY NIGHT DIRECTED insulin glargine [Lantus Solostar U-100 Insulin] 100 unit/mL (3 mL) insulin pen 10 unit SUBCUT QPM Patient Comments: INJECT 10 UNITS UNDER THE SKIN NIGHTLY DIRECTED ondansetron HCl 4 mg tablet 8 mg feeding tube Q8H PRN Patient Comments: TAKE ONE TABLET VIA G-TUBE EVERY 8 HOURS NEEDED duloxetine 20 mg Capsule,Delayed Release(Dr/Ec) 20 mg PO HS Qty: 0 0RF quetiapine 100 mg tablet 100 mg PO HS Qty: 0 0RF nystatin 100,000 unit/gram ointment 1 applic TOPICAL BID Patient Comments: APPLY TO AFFECTED AREA(S) TWO TIMES A DAY HPI General Date/Time Provider Initiated Documentation: 04/19/24 22:42 . HPI Narrative: The patient is a 63-year-old female, with a past medical history significant for mixed respiratory disease with both CHF and COPD, insulin-dependent diabetes mellitus, bipolar disorder, dysphagia with a chronic feeding tube, recent left hip ORIF currently at home after rehabilitation with physical therapy and some home health services, presents today from home with a history of hypoxia and increased difficulty breathing tonight. The patient had a home oxygen saturation of 70% on her typical supplemental oxygen. She reported having a respiratory rate in the 30s and having some difficulty catching her breath. The patient states that she has been having increasing coughing with bronchospastic coughing fits that sometimes and then posttussive emesis. This has been ongoing for 2 days. The patient also reports some subjective fevers and chills. The patient was picked up by EMS and placed on a nonrebreather which brought her oxygen saturation into the high 90s. The patient states that typically she has an oxygen saturation between 95 and 99% on her supplemental oxygen at home. Related Data Home Medications ?Medication ?Instructions ?Recorded ?Confirmed sucralfate 1 gram tablet 1 g PO QID 08/08/22 04/19/24 folic acid 1 mg tablet 1 mg PO DAILY #0 tabs 08/10/22 04/19/24 atorvastatin 80 mg tablet 80 mg PO DAILY 11/18/22 04/19/24 empagliflozin 10 mg tablet 10 mg PO DAILY 11/18/22 04/19/24 (Jardiance) metoprolol succinate 50 mg 25 mg PO BID 11/18/22 04/19/24 tablet,extended release 24 hr sacubitril 24 mg-valsartan 26 mg 1 tab feeding tube BID 11/18/22 04/19/24 tablet (Entresto) valproic acid (as sodium salt) 250 300 mg PO TID 11/18/22 04/19/24 mg/5 mL oral solution bupropion HCl 100 mg tablet 300 mg PO DAILY 12/16/22 04/19/24 protein See Rx Instructions PO .COMPLEX 12/16/22 04/19/24 acetaminophen 500 mg/15 mL oral 1,000 mg (30 mL) PO Q8H PRN #237 mL 01/19/23 04/19/24 liquid ferrous sulfate 300 mg (60 mg 300 mg feeding tube .QOD 01/31/23 04/19/24 iron)/5 mL oral liquid insulin NPH isoph U-100 human 100 See Rx Instructions .Route 02/28/23 04/19/24 unit/mL (3 mL) subcutaneous pen .COMPLEX #0 mL (Humulin N NPH U-100 Insulin KwikPen) ibuprofen 100 mg/5 mL oral 600 mg PO Q8H PRN 04/04/23 04/19/24 suspension nystatin 100,000 unit/gram topical 1 applic topical TID PRN 05/03/23 04/19/24 cream nystatin 100,000 unit/gram topical 1 applic topical TID PRN 05/03/23 04/19/24 powder pantoprazole 40 mg granules 40 mg G-tube DAILY 05/03/23 04/19/24 delayed-release for susp in packet insulin glargine 100 unit/mL (3 10 unit subcut QPM 05/04/23 04/19/24 mL) subcutaneous pen (Lantus Solostar U-100 Insulin) melatonin 3 mg tablet 9 mg feeding tube HS 05/04/23 04/19/24 ondansetron HCl 4 mg tablet 8 mg feeding tube Q8H PRN 05/08/23 04/19/24 aspirin 81 mg chewable tablet 81 mg feeding tube DAILY #30 tabs 07/05/23 04/19/24 guaifenesin 200 mg/5 mL oral liquid 200 mg (5 mL) feeding tube Q4H PRN 07/05/23 04/19/24 #118 mL duloxetine 20 mg capsule,delayed 20 mg PO HS 01/24/24 04/19/24 release (Cymbalta) duloxetine 60 mg capsule,delayed 60 mg PO DAILY 01/24/24 04/19/24 release (Cymbalta) duloxetine 20 mg capsule,delayed 20 mg PO HS #0 caps 03/11/24 04/19/24 release quetiapine 100 mg tablet 100 mg PO HS #0 tabs 03/11/24 04/19/24 nystatin 100,000 unit/gram topical 1 applic topical BID 04/19/24 04/19/24 ointment Previous Rx's ?Medication ?Instructions ?Recorded folic acid 1 mg tablet 1 mg PO DAILY #0 tabs 08/10/22 acetaminophen 500 mg/15 mL oral 1,000 mg (30 mL) PO Q8H PRN #237 mL 01/19/23 liquid insulin NPH isoph U-100 human 100 See Rx Instructions .Route 02/28/23 unit/mL (3 mL) subcutaneous pen .COMPLEX #0 mL (Humulin N NPH U-100 Insulin KwikPen) aspirin 81 mg chewable tablet 81 mg feeding tube DAILY #30 tabs 07/05/23 guaifenesin 200 mg/5 mL oral liquid 200 mg (5 mL) feeding tube Q4H PRN 07/05/23 #118 mL duloxetine 20 mg capsule,delayed 20 mg PO HS #0 caps 03/11/24 release quetiapine 100 mg tablet 100 mg PO HS #0 tabs 03/11/24 Allergies Allergy/AdvReac Type Severity Reaction Status Date / Time metformin AdvReac Unknown Diarrhea Verified 03/30/24 13:38 meperidine AdvReac gi upset Verified 03/30/24 13:38 General ASHANTI: 3 Exam Const General: cooperative and no acute distress Nutritional Appearance: average body habitus Eyes Pupils: PERRL EOM: EOM intact bilaterally Resp Effort & Inspection: normal respiratory effort, able to speak in complete sentences, no pursed lip breathing, no respiratory distress, no retractions, no tripod positioning and no use of accessory muscles Auscultation: bronchial breath sounds and diminished lung sounds Other: Relatively poor air exchange with some basilar rales Cardio Jugular venous pressure: no JVD Rate: regular rate Rhythm: regular rhythm Heart Sounds: S1 normal and S2 normal GI Inspection: other (There is an intact G-tube site in the epigastrium/left upper quadrant) Palpation: soft Auscultation: normal bowel sounds Skin General skin exam: no rashes or lesions noted and turgor normal Lesions: no lesions Rashes: no rashes Neuro General: patient alert, patient awake, oriented Patient Orientation: Person and Place, moves all extremities and no focal motor deficits Cranial Nerves: CN's II-XI intact bilaterally Extrem General: full ROM, no joint enlargement noted, no cyanosis and no edema Psych Speech and Movement: speech and movement normal Affect: indifferent and blunted Insight: poor Course Lab/Test Results Lab/Test Results: 04/19/24 22:51 Blood Blood Culture - Pending 04/19/24 22:51 Blood Blood Culture - Pending Medical Decision Making The patient was seen and examined. Initially I was unable to obtain a normal oxygen saturation because of difficulty obtaining a normal waveform. When the patient did have a normal waveform obtained with an earlobe probe, she had an oxygen saturation of 92% at rest on 4 L nasal cannula, which is a decrease in her normal oxygen saturation with an increase in her normal oxygen rate. It is not entirely clear why the patient has an increased oxygen demand, but with the new cough she could have a viral infiltrative process causing some increased exacerbation of her COPD. There may be some contribution from CHF, although this is not entirely clear and there are no demonstrable signs of volume overload on the patient's clinical examination. This could also represent some form of pneumonia with only recent development of symptomatic coughing. This could be aspiration based given the patient's history of dysphagia in the posttussive emesis. Treatment will depend on discovery of pathology on the workup. Chest x-ray is pending at this time. The patient has no significant increased work of breathing now that she has increased oxygen supplementation. She may benefit from a trial of bronchodilators, depending on the pathology found at her workup. I anticipate that with the increased oxygen requirement, the patient will most likely require admission for supportive care along with medical therapy to improve her lung disease. 0100 - The patient had a period of sustained hypoxia and low oxygen saturation in the emergency room. She was repositioned and coughed which brought her oxy gen saturation back up. She was given a DuoNeb at that time and had an ABG to ensure that she was not retaining CO2 causing her to be having periods of apnea or decreased responsiveness. The ABG did not reveal any remarkable CO2 retention. The patient did come back up but when her oxygen was decreased, she desaturated into the 80s. She had a period of normal saturation on 4 L but then became hypoxic again and has had ongoing hypoxia for some time. The patient give another DuoNeb. I discussed admission to the hospitalist service Dr. Ortiz. The patient will be also given some IV Solu-Medrol and IV Lasix. Her chest x-ray was ultimately read as some increased congestive failure, and this is based on some increased interstitial prominence. This may however represent atypical or viral infiltrative processes, as the patient's proBNP is negligible and typically in the past when she has had exacerbations of her CHF she has had significant elevations (>3500). Quality:SDOH Health Related Social Needs: No Data to Display PFSH All Active Problems (Updated 04/20/24 @ 01:57 by Jagdeep Cuba MD) COPD (chronic obstructive pulmonary disease) with acute bronchitis (Acute) Acute hypoxic respiratory failure (Acute) Acute blood loss anemia (Acute) History of total right hip replacement (Acute 03/01/24) As treatment for R femoral neck fracture PEG (percutaneous endoscopic gastrostomy) status (Chronic) 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) Medical History (Updated 04/20/24 @ 01:57 by Jagdeep Cuba MD) HFrEF (heart failure with reduced ejection fraction) Pre-op evaluation Abnormal chest xray H/O: pneumonia Anemia Drug-induced parkinsonism Neuroleptic induced parkinsonism Tubular adenoma (~06/10/21) Hyperplastic colon polyp (~06/10/21) Farrell's 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 Erosive esophagitis Esophageal ulcer with bleeding Farrell's esophagus Chronic diarrhea Black tarry stools Pleural effusion Leukocytosis Ventral hernia Cholelithiasis Atrial flutter Diabetes Bipolar 1 disorder Depression COVID Acute respiratory failure with hypoxia Acute on chronic respiratory failure with hypoxia Lab test positive for detection of COVID-19 virus Gastrostomy tube obstruction Aspiration pneumonia Pneumonitis Acute respiratory failure with hypoxia and hypercarbia Myocardial injury COPD with acute exacerbation NSTEMI (non-ST elevated myocardial infarction) Per pt. states she did not have a heart attack Bronchiolitis Acute on chronic respiratory failure with hypoxia and hypercapnia Hypotension Vitamin D deficiency Esophageal stricture Chronic systolic (congestive) heart failure Aspiration pneumonia Stress-induced cardiomyopathy acute [place] [facility] [place]/30 pressors, EF 25%, has since recovered RH Acute cardiogenic pulmonary edema Acute metabolic encephalopathy Bilateral pneumonia Hypokalemia Closed fracture of neck of left femur s/p Percutaneous Screw Fixation 08/09/22 Constipation Diabetes mellitus type 2 in obese Chronic iron deficiency anemia ETOH abuse Poorly controlled diabetes mellitus Chronic pancreatitis due to acute alcohol intoxication Alcohol abuse Per pt. states she has never had an issues with any subtances History of pilonidal cyst Anxiety Surgical History (Updated 03/31/24 @ 00:05 by HELDER SRIVASTAVA) Status post hip surgery History of total left hip arthroplasty (01/19/23) S/P laparoscopic procedure cyst removed from stomach per patient S/P surgical removal of pilonidal cyst History of esophagogastroduodenoscopy (EGD) (~06/10/21) History of colonoscopy with polypectomy (~06/10/21) History of hysterectomy History of tonsillectomy History of section Family History Father Hypertension Diabetes Heart disease Social History Smoking/Tobacco Use Status: Never Smoking risk assessment performed?: Yes Alcohol Intake: never Drug use: Never Substance use type: does not use Household members: spouse Housing: house Number of Children: 2 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
[2024-04-19 23:57] LABS: COVID-19 PCR Negative (Negative); Influenza A PCR Negative (Negative); Influenza B PCR Negative (Negative); RSV PCR Negative (Negative)
[2024-04-19 23:58] LABS: Source Nasopharynx
[2024-04-20] VITALS (141 sets, daily range): BP systolic 94–138; BP diastolic 46–84; PULSE 72–108; RESP 3–36; TEMP 35.7–37.3; O2SAT 77–100
[2024-04-20 00:08] LABS: Abs Immature Grans 0.02 10^3/uL (0.0-0.06); Absolute Basophil Count 0.02 10^3/uL (0.0-0.2); Absolute Eosinophil Count 0.14 10^3/uL (0.0-0.7); Absolute Lymphocyte Count 1.57 10^3/uL (1.2-3.4); Absolute Monocyte Count 0.61 10^3/uL (0.1-0.8); Absolute Neutrophil Count 5.05 10^3/uL (1.2-6.7); Basophils % 0.3 %; Eosinophils % 1.9 %; HCO3 (Venous) 32 mmol/L (23-28); HCT 43.4 % (36.0-46.0); HGB 13.7 g/dL (11.2-15.7); Immature Grans % 0.3 %; Lymphocytes % 21.2 %; MCH 27.7 pg (27.0-33.0); MCHC 31.6 % (32.0-36.0); MCV 88 fL (80-95); MPV 11.2 fL (8.0-11.0); Monocytes % 8.2 %; Neutrophils % 68.1 %; Platelet Count 168 10^3/uL (130-400); RBC 4.94 10^6/uL (3.93-5.22); RDW 14.6 % (11.7-14.6); RDW-SD 46.8 fL; TCO2 (Venous) 28 mmol/L (24-29); WBC 7.41 10^3/uL (4.4-10.8); pCO2 (Venous) 45 mmHg (41-51); pH (Venous) 7.46 (7.31-7.41); pO2 (Venous) 32 mmHg
[2024-04-20 00:09] LABS: BE (Venous) 8 mmol/L (-2-3); O2 Sat (Venous) 58 %
[2024-04-20 00:19] LABS: Anion Gap 8.5 mmol/L (3-11); BUN 17 mg/dL (7-18); CO2 29.5 mmol/L (21.0-32.0); CREATININE 0.8 mg/dL (0.55-1.02); Calcium 9.9 mg/dL (8.5-10.1); Chloride 105 mmol/L (98-107); Estimated GFR 82.74 (mL/min/1.73m2); Glucose 104 mg/dL (74-106); Sodium 143 mmol/L (136-145)
[2024-04-20 00:22] LABS: VALPROIC ACID 93.9 ug/mL
[2024-04-20 00:28] LABS: Troponin I < 4 ng/L (<or=51)
[2024-04-20] MEDS: Albuterol/Ipratropium 3 ML UPD VIAL UPD ×6 (00:28→20:20)
[2024-04-20 00:47] LABS: NT-proBNP 243 pg/mL (<300)
--- NOTE | 2024-04-20 00:53 | DI.VRAD_ITS ---
PROCEDURE INFORMATION: Exam: XR Chest Exam date and time: 04/19/2024 11:35 PM Age: 63 years old Clinical indication: Cough and shortness of breath; Additional info: Shortness of breath, new cough TECHNIQUE: Imaging protocol: Radiologic exam of the chest. Views: 1 view. COMPARISON: CR XR PORTABLE CHEST AP 07/02/2023 12:22 PM FINDINGS: Lungs: There are diffuse interstitial infiltrates present. This may represent cardiogenic versus noncardiogenic edema. An acute inflammatory process and/or infectious process/pneumonia are not excluded. Pleural spaces: There is no evidence of pneumothorax. There are no pleural effusions present. Heart/Mediastinum: The cardiac structures are normal. Bones/joints: The skeletal structures and soft tissues show no evidence of fracture or other acute processes. Soft tissues: The soft tissues of the extrathoracic region are unremarkable. Organs: Soft tissue density adjacent to the upper mediastinum may represent thyroid. Consider lymphadenopathy. The film is rotated. IMPRESSION: 1. There are diffuse interstitial infiltrates present. This may represent cardiogenic versus noncardiogenic edema. An acute inflammatory process and/or infectious process/pneumonia are not excluded. 2. Soft tissue density adjacent to the upper mediastinum may represent thyroid. Consider lymphadenopathy. The film is rotated. Dictated and Authenticated by: Aron Snell MD. Ordering:DEMARIO Gannon MD
[2024-04-20 00:54] LABS: Site Left Brachial
[2024-04-20 00:55] LABS: BE 8 mmol/L (-2-3); FIO2 36 %; HCO3 32 mmol/L (22-26); pCO2 47 mmHg (35-45); pH 7.44 (7.35-7.45); pO2 70 mmHg (80-105); sO2 94 % (95-98); tCO2 29 mmol/L (23-27)
[2024-04-20 01:34] LABS: Troponin I < 4 ng/L (<or=51)
--- NOTE | 2024-04-20 01:49 | W.PM.HP.N ---
Date of service: 04/20/24 Time of Service: 01:49 Assessment and Plan Assessment and plan (1) COPD exacerbation: Status: Acute Assessment and plan: COPD exacerbation , probably on basis of viral infection. There may also be an element of CHF (based on CXR) despite normal BNP. Will give Duonebs, steroids and single dose IV lasix. Will also add oral antibiotics. History of Present Illness History of Present Illness Chief Complaint: cough, SOB Narrative: 63 female with h/o COPD, CHF, dysphagia with feeding tube -- here with several days of cough and SOB. No CP, fever. She is apparently on home O2 HS. Report is of home sats in 70s. Here in ER she has been satting in mid-90s on 4L, then on 2L following [employer]. Work up of note for white count 7, unremarkable chemistries, negative troponin and BNP 243. CXR shows probably mild pulmonary edema. Viral swab is triple negative. ABG pH 7.47, pCO2 47, pO2 70. I was asked to evaluate for admission. Patient states she is comfortable though her breathing does not feel back to baseline. 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) Medical History HFrEF (heart failure with reduced ejection fraction) Pre-op evaluation Abnormal chest xray H/O: pneumonia Anemia Drug-induced parkinsonism Neuroleptic induced parkinsonism Tubular adenoma (~06/10/21) Hyperplastic colon polyp (~06/10/21) Farrell's 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 Erosive esophagitis Esophageal ulcer with bleeding Farrell's esophagus Chronic diarrhea Black tarry stools Pleural effusion Leukocytosis Ventral hernia Cholelithiasis Atrial flutter Diabetes Bipolar 1 disorder Depression COVID Acute respiratory failure with hypoxia Acute on chronic respiratory failure with hypoxia Lab test positive for detection of COVID-19 virus Gastrostomy tube obstruction Aspiration pneumonia Pneumonitis Acute respiratory failure with hypoxia and hypercarbia Myocardial injury COPD with acute exacerbation NSTEMI (non-ST elevated myocardial infarction) Per pt. states she did not have a heart attack Bronchiolitis Acute on chronic respiratory failure with hypoxia and hypercapnia Hypotension Vitamin D deficiency Esophageal stricture Chronic systolic (congestive) heart failure Aspiration pneumonia Stress-induced cardiomyopathy acute onset managed at [facility] [place] [facility] [place] pressors, EF 25%, has since recovered RH Acute cardiogenic pulmonary edema Acute metabolic encephalopathy Bilateral pneumonia Hypokalemia Closed fracture of neck of left femur s/p Percutaneous Screw Fixation 08/09/22 Constipation Diabetes mellitus type 2 in obese Chronic iron deficiency anemia ETOH abuse Poorly controlled diabetes mellitus Chronic pancreatitis due to acute alcohol intoxication Alcohol abuse Per pt. states she has never had an issues with any subtances History of pilonidal cyst Anxiety Surgical History Status post hip surgery History of total left hip arthroplasty (01/19/23) S/P laparoscopic procedure cyst removed from stomach per patient S/P surgical removal of pilonidal cyst History of esophagogastroduodenoscopy (EGD) (~06/10/21) History of colonoscopy with polypectomy (~06/10/21) History of hysterectomy History of tonsillectomy History of section Family History Father Hypertension Diabetes Heart disease Social History Smoking/Tobacco Use Status: Never Smoking risk assessment performed?: Yes Alcohol Intake: never Drug use: Never Substance use type: does not use Household members: spouse Housing: house Number of Children: 2 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 Meds Allergies and Home Medications Allergies Allergy/AdvReac Type Severity Reaction Status Date / Time metformin AdvReac Unknown Diarrhea Verified 03/30/24 13:38 meperidine AdvReac gi upset Verified 03/30/24 13:38 Home Medications ?Medication ?Instructions ?Recorded ?Confirmed ?Type sucralfate 1 gram tablet 1 g PO QID 08/08/22 04/19/24 History folic acid 1 mg tablet 1 mg PO DAILY #0 tabs 08/10/22 04/19/24 Rx atorvastatin 80 mg tablet 80 mg PO DAILY 11/18/22 04/19/24 History empagliflozin 10 mg tablet 10 mg PO DAILY 11/18/22 04/19/24 History (Jardiance) metoprolol succinate 50 mg 25 mg PO BID 11/18/22 04/19/24 History tablet,extended release 24 hr sacubitril 24 mg-valsartan 26 mg 1 tab feeding tube BID 11/18/22 04/19/24 History tablet (Entresto) valproic acid (as sodium salt) 250 300 mg PO TID 11/18/22 04/19/24 History mg/5 mL oral solution bupropion HCl 100 mg tablet 300 mg PO DAILY 12/16/22 04/19/24 History protein See Rx Instructions PO .COMPLEX 12/16/22 04/19/24 History acetaminophen 500 mg/15 mL oral 1,000 mg (30 mL) PO Q8H PRN #237 mL 01/19/23 04/19/24 Rx liquid ferrous sulfate 300 mg (60 mg 300 mg feeding tube .QOD 01/31/23 04/19/24 History iron)/5 mL oral liquid insulin NPH isoph U-100 human 100 See Rx Instructions .Route 02/28/23 04/19/24 Rx unit/mL (3 mL) subcutaneous pen .COMPLEX #0 mL (Humulin N NPH U-100 Insulin KwikPen) ibuprofen 100 mg/5 mL oral 600 mg PO Q8H PRN 04/04/23 04/19/24 History suspension nystatin 100,000 unit/gram topical 1 applic topical TID PRN 05/03/23 04/19/24 History cream nystatin 100,000 unit/gram topical 1 applic topical TID PRN 05/03/23 04/19/24 History powder pantoprazole 40 mg granules 40 mg G-tube DAILY 05/03/23 04/19/24 History delayed-release for susp in packet insulin glargine 100 unit/mL (3 10 unit subcut QPM 05/04/23 04/19/24 History mL) subcutaneous pen (Lantus Solostar U-100 Insulin) melatonin 3 mg tablet 9 mg feeding tube HS 05/04/23 04/19/24 History ondansetron HCl 4 mg tablet 8 mg feeding tube Q8H PRN 05/08/23 04/19/24 History aspirin 81 mg chewable tablet 81 mg feeding tube DAILY #30 tabs 07/05/23 04/19/24 Rx guaifenesin 200 mg/5 mL oral liquid 200 mg (5 mL) feeding tube Q4H PRN 07/05/23 04/19/24 Rx #118 mL duloxetine 20 mg capsule,delayed 20 mg PO HS 01/24/24 04/19/24 History release (Cymbalta) duloxetine 60 mg capsule,delayed 60 mg PO DAILY 01/24/24 04/19/24 History release (Cymbalta) duloxetine 20 mg capsule,delayed 20 mg PO HS #0 caps 03/11/24 04/19/24 Rx release quetiapine 100 mg tablet 100 mg PO HS #0 tabs 03/11/24 04/19/24 Rx nystatin 100,000 unit/gram topical 1 applic topical BID 04/19/24 04/19/24 History ointment Exam Narrative Exam Narrative: 120/46, 74, 36.4, 22, 93% 2L. HEENT atraumatic; neck supple; lungs diffuse wheeze and rhonchi; heart RRR; abdomen soft and NT, G-tube in place; extremities w/o edema; neuro Ox3, moves all 4s Results Labs 04/19/24 00:00 04/19/24 22:51 Labs: Laboratory Results - last 24 hr 04/19/24 04/19/24 04/19/24 00:00 22:51 23:17 WBC 7.41 RBC 4.94 Hgb 13.7 Hct 43.4 MCV 88 MCH 27.7 MCHC 31.6 L RDW 14.6 Plt Count 168 MPV 11.2 H Immature Gran % 0.3 Neutrophils % 68.1 Lymphocytes % 21.2 Monocytes % 8.2 Eosinophils % 1.9 Basophils % 0.3 Nucleated RBC % 0.0 Absolute Neutrophils 5.05 Absolute Lymphocytes 1.57 Absolute Monocytes 0.61 Absolute Eosinophils 0.14 Absolute Basophils 0.02 ABG Sample Site ABG pH ABG pCO2 ABG pO2 ABG HCO3 ABG Total CO2 ABG O2 Saturation ABG Base Excess VBG pH 7.46 H VBG pCO2 45 VBG pO2 32 VBG HCO3 32 H VBG Total CO2 28 VBG O2 Saturation 58 VBG Base Excess 8 H Cord ABG pH Cord ABG pCO2 Cord ABG pO2 Cord ABG Base Excess FiO2 Sodium 143 Potassium 4.0 Chloride 105 Carbon Dioxide 29.5 Anion Gap 8.5 BUN 17 Creatinine 0.8 Est GFR (CKD-EPI 2020) 82.74 Glucose 104 Calcium 9.9 Troponin I < 4 NT-Pro-B Natriuret Pep 243 Valproic Acid 93.9 COVID-19 Source Nasopharynx SARS-CoV-2 (PCR) Negative Influenza Type A (PCR) Negative Influenza Type B (PCR) Negative RSV (PCR) Negative 04/20/24 04/20/24 00:36 01:10 WBC RBC Hgb Hct MCV MCH MCHC RDW Plt Count MPV Immature Gran % Neutrophils % Lymphocytes % Monocytes % Eosinophils % Basophils % Nucleated RBC % Absolute Neutrophils Absolute Lymphocytes Absolute Monocytes Absolute Eosinophils Absolute Basophils ABG Sample Site Left Brachial ABG pH 7.44 ABG pCO2 47 H ABG pO2 70 L ABG HCO3 32 H ABG Total CO2 29 H ABG O2 Saturation 94 L ABG Base Excess 8 H VBG pH VBG pCO2 VBG pO2 VBG HCO3 VBG Total CO2 VBG O2 Saturation VBG Base Excess Cord ABG pH Cancelled Cord ABG pCO2 Cancelled Cord ABG pO2 Cancelled Cord ABG Base Excess Cancelled FiO2 36 Sodium Potassium Chloride Carbon Dioxide Anion Gap BUN Creatinine Est GFR (CKD-EPI 2020) Glucose Calcium Troponin I < 4 NT-Pro-B Natriuret Pep Valproic Acid COVID-19 Source SARS-CoV-2 (PCR) Influenza Type A (PCR) Influenza Type B (PCR) RSV (PCR) Last Vital Signs Temp 36.4 C L 04/19/24 23:11 Pulse 75 04/20/24 00:15 Resp 22 04/20/24 01:29 BP 94/55 L 04/20/24 00:15 Pulse Ox 93 04/20/24 01:29 Time Spent Time spent with Patient: 40-54 minutes Time was spent: preparing to see the patient(eg.review tests), obtaining and/or reviewing separately otained hiistory, ordering medications,tests, procedures, referring, communicating with other health point of care technician and indepentently interpreting results
[2024-04-20] MEDS: methylPREDNISolone SUCC 125 MG VIAL IVP (01:57)
[2024-04-20] MEDS: Furosemide 40 MG/4 ML VIAL IVP (01:57)
--- NOTE | 2024-04-20 02:53 | W.PC.ACHO ---
Registration Status: Primary Language: Preferred Language: ED Information & Data Chief Complaint RespSymp 04/19/24 23:11 Chief Complaint RespSymp 04/19/24 23:08 Triage Note Pt BIBEMS d/t low home O2 04/19/24 23:08 reading in 70s, confirmed by EMS &FD. Reports x2 days of chills and productive cough w/ post-tussis emesis Medical / Surgical History (Last Reviewed 04/20/24 @ 01:58 by Geronimo Ortiz MD) HFrEF (heart failure with reduced ejection fraction) Pre-op evaluation Abnormal chest xray H/O: pneumonia Anemia Drug-induced parkinsonism Neuroleptic induced parkinsonism Tubular adenoma (~06/10/21) Hyperplastic colon polyp (~06/10/21) Farrell's 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 Erosive esophagitis Esophageal ulcer with bleeding Farrell's esophagus Chronic diarrhea Black tarry stools Pleural effusion Leukocytosis Ventral hernia Cholelithiasis Atrial flutter Diabetes Bipolar 1 disorder Depression COVID Acute respiratory failure with hypoxia Acute on chronic respiratory failure with hypoxia Lab test positive for detection of COVID-19 virus Gastrostomy tube obstruction Aspiration pneumonia Pneumonitis Acute respiratory failure with hypoxia and hypercarbia Myocardial injury COPD with acute exacerbation NSTEMI (non-ST elevated myocardial infarction) Bronchiolitis Acute on chronic respiratory failure with hypoxia and hypercapnia Hypotension Vitamin D deficiency Esophageal stricture Chronic systolic (congestive) heart failure Aspiration pneumonia Stress-induced cardiomyopathy Acute cardiogenic pulmonary edema Acute metabolic encephalopathy Bilateral pneumonia Hypokalemia Closed fracture of neck of left femur Constipation Diabetes mellitus type 2 in obese Chronic iron deficiency anemia ETOH abuse Poorly controlled diabetes mellitus Chronic pancreatitis due to acute alcohol intoxication Alcohol abuse History of pilonidal cyst Anxiety (Last Reviewed 04/20/24 @ 01:58 by Geronimo Ortiz MD) Status post hip surgery History of total left hip arthroplasty (01/19/23) S/P laparoscopic procedure S/P surgical removal of pilonidal cyst History of esophagogastroduodenoscopy (EGD) (~06/10/21) History of colonoscopy with polypectomy (~06/10/21) History of hysterectomy History of tonsillectomy History of section Most Recent Vital Signs Temperature 36.4 C L 04/19/24 23:11 Temperature Source Temporal Artery Scan 04/19/24 23:11 Pulse 72 04/20/24 02:01 Respiratory Rate 20 04/20/24 02:05 Respiratory Effort Normal, Non-Labored 04/20/24 02:08 Respiratory Depth Normal 04/20/24 02:23 Respiratory Pattern Normal 04/20/24 02:08 Blood Pressure 110/49 L 04/20/24 02:01 Blood Pressure Position Sitting 04/19/24 23:11 Pulse Oximetry 93 04/20/24 02:08 Oxygen Delivery Method Nasal Cannula 04/20/24 02:08 Oxygen Flow Rate 4 04/20/24 02:08 Pain Level 0 04/20/24 01:08 Allergies metformin Adverse Reaction (Unknown, Verified 04/20/24 02:32) Diarrhea meperidine Adverse Reaction (Verified 04/20/24 02:32) gi upset Precautions Isolation Standard precaution 04/19/24 23:11 Active Medications Generic Name Dose Route Start Last Admin Trade Name Freq PRN Reason Stop Dose Admin Albuterol/Ipratropium 3 ml 04/20/24 00:23 04/20/24 00:28 Albuterol/Ipratropium 3 Ml Upd Vial UPD 3 ml Q3H PRN PRN Administration IV IV Catheter Type [Right Saline Lock Antecubital] IV Catheter Gauge [Right 18 Antecubital] Diet Orders Category Date Time Status Nothing Per Oral [DIET] Nutrition 04/20/24 Breakfast Active Diagnostics 04/20/24 04/20/24 04/20/24 Range/Units 01:53 01:10 00:36 WBC (4.4-10.8) 10^3/uL RBC (3.93-5.22) 10^6/uL Hgb (11.2-15.7) g/dL Hct (36.0-46.0) % MCV (80-95) fL MCH (27.0-33.0) pg MCHC (32.0-36.0) % RDW (11.7-14.6) % Plt Count (130-400) 10^3/uL MPV (8.0-11.0) fL Immature Gran % % Neutrophils % % Lymphocytes % % Monocytes % % Eosinophils % % Basophils % % Nucleated RBC % (0.0-0.3) % Absolute Neutrophils (1.2-6.7) 10^3/uL Absolute Lymphocytes (1.2-3.4) 10^3/uL Absolute Monocytes (0.1-0.8) 10^3/uL Absolute Eosinophils (0.0-0.7) 10^3/uL Absolute Basophils (0.0-0.2) 10^3/uL ABG Sample Site Left Brachial ABG pH 7.44 (7.35-7.45) ABG pCO2 47 H (35-45) mmHg ABG pO2 70 L (80-105) mmHg ABG HCO3 32 H (22-26) mmol/L ABG Total CO2 29 H (23-27) mmol/L ABG O2 Saturation 94 L (95-98) % ABG Base Excess 8 H (-2-3) mmol/L VBG pH (7.31-7.41) VBG pCO2 (41-51) mmHg VBG pO2 mmHg VBG HCO3 (23-28) mmol/L VBG Total CO2 (24-29) mmol/L VBG O2 Saturation % VBG Base Excess (-2-3) mmol/L Cord ABG pH Cancelled Cord ABG pCO2 Cancelled Cord ABG pO2 Cancelled Cord ABG Base Excess Cancelled FiO2 36 % Sodium (136-145) mmol/L Potassium (3.5-5.1) mmol/L Chloride (98-107) mmol/L Carbon Dioxide (21.0-32.0) mmol/L Anion Gap (3-11) mmol/L BUN (7-18) mg/dL Creatinine (0.55-1.02) mg/dL Est GFR (CKD-EPI 2020) (mL/min/1.73m2) Glucose (74-106) mg/dL Calcium (8.5-10.1) mg/dL Troponin I Cancelled < 4 (<or=51) ng/L NT-Pro-B Natriuret Pep (<300) pg/mL Valproic Acid ( - 150) ug/mL COVID-19 Source SARS-CoV-2 (PCR) (Negative) Influenza Type A (PCR) (Negative) Influenza Type B (PCR) (Negative) RSV (PCR) (Negative) 04/19/24 04/19/24 04/19/24 Range/Units 23:17 22:51 00:00 WBC 7.41 (4.4-10.8) 10^3/uL RBC 4.94 (3.93-5.22) 10^6/uL Hgb 13.7 (11.2-15.7) g/dL Hct 43.4 (36.0-46.0) % MCV 88 (80-95) fL MCH 27.7 (27.0-33.0) pg MCHC 31.6 L (32.0-36.0) % RDW 14.6 (11.7-14.6) % Plt Count 168 (130-400) 10^3/uL MPV 11.2 H (8.0-11.0) fL Immature Gran % 0.3 % Neutrophils % 68.1 % Lymphocytes % 21.2 % Monocytes % 8.2 % Eosinophils % 1.9 % Basophils % 0.3 % Nucleated RBC % 0.0 (0.0-0.3) % Absolute Neutrophils 5.05 (1.2-6.7) 10^3/uL Absolute Lymphocytes 1.57 (1.2-3.4) 10^3/uL Absolute Monocytes 0.61 (0.1-0.8) 10^3/uL Absolute Eosinophils 0.14 (0.0-0.7) 10^3/uL Absolute Basophils 0.02 (0.0-0.2) 10^3/uL ABG Sample Site ABG pH (7.35-7.45) ABG pCO2 (35-45) mmHg ABG pO2 (80-105) mmHg ABG HCO3 (22-26) mmol/L ABG Total CO2 (23-27) mmol/L ABG O2 Saturation (95-98) % ABG Base Excess (-2-3) mmol/L VBG pH 7.46 H (7.31-7.41) VBG pCO2 45 (41-51) mmHg VBG pO2 32 mmHg VBG HCO3 32 H (23-28) mmol/L VBG Total CO2 28 (24-29) mmol/L VBG O2 Saturation 58 % VBG Base Excess 8 H (-2-3) mmol/L Cord ABG pH Cord ABG pCO2 Cord ABG pO2 Cord ABG Base Excess FiO2 % Sodium 143 (136-145) mmol/L Potassium 4.0 (3.5-5.1) mmol/L Chloride 105 (98-107) mmol/L Carbon Dioxide 29.5 (21.0-32.0) mmol/L Anion Gap 8.5 (3-11) mmol/L BUN 17 (7-18) mg/dL Creatinine 0.8 (0.55-1.02) mg/dL Est GFR (CKD-EPI 2020) 82.74 (mL/min/1.73m2) Glucose 104 (74-106) mg/dL Calcium 9.9 (8.5-10.1) mg/dL Troponin I < 4 (<or=51) ng/L NT-Pro-B Natriuret Pep 243 (<300) pg/mL Valproic Acid 93.9 ( - 150) ug/mL COVID-19 Source Nasopharynx SARS-CoV-2 (PCR) Negative (Negative) Influenza Type A (PCR) Negative (Negative) Influenza Type B (PCR) Negative (Negative) RSV (PCR) Negative (Negative) 04/20/24 01:10 Blood Culture - Pending Blood 04/19/24 23:24 Blood Culture - Pending Blood [id number] Documentation Fingerstick Glucose Start: 04/19/24 23:37 Freq: Status: Complete Protocol: Activity Type Activity Date Activity User E-sign Co-sign Detail Recorded Client Recorded Date Recorded By Document 04/19/24 23:26 BKG DAEMON(3) [id number] 04/19/24 23:37 BKG DAEMON(4) Intake and Output - 24 Hour Total 04/19/24 22:32 thru 04/19/24 23:08 Weight 60.781 kg Falls Risk Assessment History of Falls No History 04/19/24 23:11 Contributing Factors No Factors 04/19/24 23:11 Ambulatory Aids Independent 04/19/24 23:11 Tubes/Lines None 04/19/24 23:11 Gait Evaluation No gait disturbance 04/19/24 23:11 Cognition No cognitive impairment 04/19/24 23:11 Fall Total Score 0 04/19/24 23:11 Level of Risk Standard/Low Risk 04/19/24 23:11 Problems (Last Reviewed 04/20/24 @ 01:58 by Geronimo Ortiz MD) COPD exacerbation (Acute) COPD (chronic obstructive pulmonary disease) with acute bronchitis (Acute) Acute hypoxic respiratory failure (Acute) v v v v v v v v v Sending and/or Receiving Nurses: Please use comment section below to note any information pertinent to the patient hand-off not included above. Information / Comments: Pt checks own O2 at home, checked tonight O2 in the 70s called EMS. Usually on 2L at night to sleep. Has had cough x couple days, wet prod cough. Hx of bipolar, NSTEMI, diabetic, a flutter. Has g-tube which she does feeds and meds through. On 4L now, sating 78%. BW unremarkable, WBC 7.41. VBG 7.46, 32 bicarb. CXR infiltrates, viral infection? Fluvid -. 18g R AC. Had 2 duo nebs, 125 solumedrol, 40mg of lasix. Coughing up thick, kirby, green mucous. BP 110/49, 70-80 bpm. Report received from:Joe [place] called [id number]
--- NOTE | 2024-04-20 03:21 | NUR.NOTE ---
0309: While this RN giving report to ERI Serrano on med surg, pt abruptly desatted from 94% to 73% w/o change in 4lpm via NC. Noticeably more tachypnic w/ coarse lung sounds. Improved w/ another nebulizer treatment per MD [place] and encouragement to turn, cough and deep breathe. Pt expectorated copious amounts of tenacious, creamy green sputum w/ improvement of SpO2 to 94% on 4lpm via NC. Denies CP or SOB despite RR >25 rpm sustained. 0314: Pt SpO2 back to <85% on O2 despite help w/ chest PT and encouraging further expectoration of tenacious airway secretions. Pt appears fatigued and w/ increasing WOB. 0321: MD Ortiz updated and aware. Contacted RT to initiate BiPAP on arrival to med-surg per MD. Placed on 10lpm via NRB w/ good improvement of SpO2 to 96%. jackscrew workerERI Estrella updated and aware, will relay this information to ERI Serrano.
[2024-04-20] MEDS: Normal Saline Flush 10 ML SYR IVP ×3 (08:48→22:59)
[2024-04-20] MEDS: buPROPion 100 MG TAB 300 MG NG (08:49)
[2024-04-20] MEDS: Sucralfate 1 GM TAB PO ×4 (08:49→22:58)
[2024-04-20] MEDS: Empaglifozin 10 MG TAB PO (08:49)
[2024-04-20] MEDS: Doxycycline Hyclate 100 MG CAP NG ×2 (08:49→21:12)
[2024-04-20] MEDS: Sacubitril/Valsartan 24 mg/26 mg TAB 1 EACH NG ×2 (08:49→20:56)
[2024-04-20] MEDS: DULoxetine 30 MG CAP 60 MG PO (08:49)
[2024-04-20] MEDS: Aspirin 81 MG CHEW NG (08:50)
[2024-04-20] MEDS: Metoprolol CR 25 MG TABCR PO ×2 (08:50→20:47)
[2024-04-20] MEDS: Folic Acid 1 MG TAB PO (08:50)
[2024-04-20] MEDS: Atorvastatin 40 MG TAB 80 MG PO (08:50)
--- NOTE | 2024-04-20 09:46 | W.PM.PROGNOT ---
Date of Service Date of service: 04/20/24 Time of Service: 09:47 Assessment and Plan Assessment and plan (1) Acute hypoxic respiratory failure: Status: Acute Assessment and plan: Sat 79 % on arrival to the ED, no furhter O2 requirement during the day time; on 2 l/min at night at home w/o the need of NVI And as below (2) COPD exacerbation: Status: Acute Assessment and plan: COPD exacerbation with an element of CHF (based on CXR) despite normal BNP; single dose IV lasix given Chest XR: IMPRESSION: 1. There are diffuse interstitial infiltrates present. This may represent cardiogenic versus noncardiogenic edema. An acute inflammatory process and/or infectious process/pneumonia are not excluded. 2. Soft tissue density adjacent to the upper mediastinum may represent thyroid. Consider lymphadenopathy. The film is rotated. Patient presented in the past with pneumonia and was a febrile. With COPD exacerbation with increased sputum production, cough or change in color will continue doxycycline and steroids with transition to oral in AM Continue IS, duonebs and mucinex Acapella PT consult (3) Insulin dependent type 2 diabetes mellitus: Status: Chronic Assessment and plan: Fingerstick AC ( PEG feedings) and HS with Lantus bolus and SSI PEG feeding and H2O as per nutrition consult (4) PEG (percutaneous endoscopic gastrostomy) status: Status: Chronic Assessment and plan: as above (5) On deep vein thrombosis (DVT) prophylaxis: Status: Acute Assessment and plan: LMWH (6) Discharge planning issues: Status: Acute Assessment and plan: Discharge home when stable Subjective Subjective Patient reports: feels better, tolerating liquids well, tolerating a regular diet, voiding w/o difficulty and afebrile; denies no bowel movement, diarrhea, nausea, vomiting or shortness of breath Exam Narrative Exam Narrative: Constitutional The patient is i bed comfortable and cooperative HENMT: Facial structures with normal appearance Eyes: Well aligned Neck: Normal ROM, no meningeal signs Neuro:alert and oriented to self, place, knows it is April near [place] time. No neurological focal deficit Resp: On RA, unlabored breathing, clear lung bilaterally with diminished left base Cardio:tele SR HR 78, regular rhythm S1, S2, bilateral radial and dorsalis pedis pulses are positive, palpable GI: Abdomen is not distended, soft and non tender, bowel sounds are diminished :No bladder distension Extremities: strength 5/5 to bilateral lower and upper extremities Psych: RASS 0, exalted mood and anxious affect. Objective Last Vital Signs Temp 35.7 C L 04/20/24 07:39 Pulse 86 04/20/24 08:34 Resp 18 04/20/24 08:34 BP 121/72 04/20/24 07:39 Pulse Ox 90 L 04/20/24 08:40 Laboratory Results - last 24 hr 04/19/24 04/19/24 04/19/24 00:00 22:51 23:17 WBC 7.41 RBC 4.94 Hgb 13.7 Hct 43.4 MCV 88 MCH 27.7 MCHC 31.6 L RDW 14.6 Plt Count 168 MPV 11.2 H Immature Gran % 0.3 Neutrophils % 68.1 Lymphocytes % 21.2 Monocytes % 8.2 Eosinophils % 1.9 Basophils % 0.3 Nucleated RBC % 0.0 Absolute Neutrophils 5.05 Absolute Lymphocytes 1.57 Absolute Monocytes 0.61 Absolute Eosinophils 0.14 Absolute Basophils 0.02 ABG Sample Site ABG pH ABG pCO2 ABG pO2 ABG HCO3 ABG Total CO2 ABG O2 Saturation ABG Base Excess VBG pH 7.46 H VBG pCO2 45 VBG pO2 32 VBG HCO3 32 H VBG Total CO2 28 VBG O2 Saturation 58 VBG Base Excess 8 H Cord ABG pH Cord ABG pCO2 Cord ABG pO2 Cord ABG Base Excess FiO2 Sodium 143 Potassium 4.0 Chloride 105 Carbon Dioxide 29.5 Anion Gap 8.5 BUN 17 Creatinine 0.8 Est GFR (CKD-EPI 2020) 82.74 Glucose 104 Calcium 9.9 Troponin I < 4 NT-Pro-B Natriuret Pep 243 Valproic Acid 93.9 COVID-19 Source Nasopharynx SARS-CoV-2 (PCR) Negative Influenza Type A (PCR) Negative Influenza Type B (PCR) Negative RSV (PCR) Negative 04/20/24 04/20/24 04/20/24 00:36 01:10 01:53 WBC RBC Hgb Hct MCV MCH MCHC RDW Plt Count MPV Immature Gran % Neutrophils % Lymphocytes % Monocytes % Eosinophils % Basophils % Nucleated RBC % Absolute Neutrophils Absolute Lymphocytes Absolute Monocytes Absolute Eosinophils Absolute Basophils ABG Sample Site Left Brachial ABG pH 7.44 ABG pCO2 47 H ABG pO2 70 L ABG HCO3 32 H ABG Total CO2 29 H ABG O2 Saturation 94 L ABG Base Excess 8 H VBG pH VBG pCO2 VBG pO2 VBG HCO3 VBG Total CO2 VBG O2 Saturation VBG Base Excess Cord ABG pH Cancelled Cord ABG pCO2 Cancelled Cord ABG pO2 Cancelled Cord ABG Base Excess Cancelled FiO2 36 Sodium Potassium Chloride Carbon Dioxide Anion Gap BUN Creatinine Est GFR (CKD-EPI 2020) Glucose Calcium Troponin I < 4 Cancelled NT-Pro-B Natriuret Pep Valproic Acid COVID-19 Source SARS-CoV-2 (PCR) Influenza Type A (PCR) Influenza Type B (PCR) RSV (PCR) Time Spent with Patient Time Spent with Patient: >50 minutes Time was spent: preparing to see the patient(eg.review tests), obtaining and/or reviewing separately otained hiistory, ordering medications,tests, procedures, referring, communicating with other health care management assistant, indepentently interpreting results, counseling the patient and care coordination
--- NOTE | 2024-04-20 10:10 | INITIAL_ITS ---
Date of service: 04/20/24 Time of Service: 10:11 Care Management Initial Assmt Initial Assessment Reason for Hospitalization: COPD exacerbation with increased O2 requirement Functional Status/Living Situation Patient Presentation: Jennifer was admitted early this morning with c/o several days of cough and SOB. On day of admission, Jennifer was having difficulty breathing at home, reported RR in the 30s, and a home O2 sat of only 70% on her typical 2L of O2, which she uses only at night. EMS was called and she was placed on a nonrebreather, and her O2 sat improved to the high 90s. Jennifer reported usual sat is 95-99%. Jennifer was sitting up in the bed when CM met with her. She looked comfortable. She was not wearing any O2. She stated that she remembered me from her last visit. Jennifer was pleasant, but seemed a bit confused. She was able to hide it in her conversation, but some of her answers were off just a bit. Jennifer stated that she thinks she will be going home soon. She likes to be home because she can drink there, she is presently NPO due to believed aspiration. Town of Residence: [facility] Resides with: Spouse (Campos) Significant Other/Family: Local (Campos, . 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 Jennifer uses O2 at night, and also has a G-tube. Advance Directives Advance Directives: Do you have an Advance Directive: N 04/09/23 11:29 AD On File at [facility]: N 04/09/23 11:29 Date Asked 04/19/24 04/19/24 22:47 AD Date Reviewed COLST On File at [facility] COLST Date Scanned Code Status Resuscitation Status Full Code Insurance Coverage/Financial Issues Insurance: Medicare and [facility] financial assistance at 100% Financial Issues: Campos is on disability. 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 Money is tight, but they get by. Care Team Visit Care Team Role Provider Type Ana Gillespie Primary Care Provider NURSE PRACTITIONER Brittany Sanchez RDN, [facility] [place] Other Providers WAGE HAND Jaz Hilliard Other Providers WAGE HAND Levy Sotomayor RDN Other Providers WAGE HAND Jagdeep Cuba MD Emergency Provider [facility] STAFF PHYSICIAN Geronimo Ortiz MD Admit Provider [facility] STAFF PHYSICIAN Attending Provider Discharge Potential Discharge Needs: PCP F/U Appt and Other (continued outpatient PT) Anticipated Barriers to Discharge: None Identified Patient/Family Education Needs: Review discharge instructions, discuss Ask Me Three Transportation: Private vehicle (with , Campos) Plan: Anticipate that Jennifer will return home, with no new services, once medically cleared. She will f/u with her PCP, continue outpatient PT, and continue per her prescribed plan of care. Jennifer will transport in a private vehicle with her . 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) Medical History HFrEF (heart failure with reduced ejection fraction) Pre-op evaluation Abnormal chest xray H/O: pneumonia Anemia Drug-induced parkinsonism Neuroleptic induced parkinsonism Tubular adenoma (~06/10/21) Hyperplastic colon polyp (~06/10/21) Farrell's 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 Erosive esophagitis Esophageal ulcer with bleeding Farrell's esophagus Chronic diarrhea Black tarry stools Pleural effusion Leukocytosis Ventral hernia Cholelithiasis Atrial flutter Diabetes Bipolar 1 disorder Depression COVID Acute respiratory failure with hypoxia Acute on chronic respiratory failure with hypoxia Lab test positive for detection of COVID-19 virus Gastrostomy tube obstruction Aspiration pneumonia Pneumonitis Acute respiratory failure with hypoxia and hypercarbia Myocardial injury COPD with acute exacerbation NSTEMI (non-ST elevated myocardial infarction) Per pt. states she did not have a heart attack Bronchiolitis Acute on chronic respiratory failure with hypoxia and hypercapnia Hypotension Vitamin D deficiency Esophageal stricture Chronic systolic (congestive) heart failure Aspiration pneumonia Stress-induced cardiomyopathy acute onset managed at [facility] [place] 08/[place] pressors, EF 25%, has since recovered RH Acute cardiogenic pulmonary edema Acute metabolic encephalopathy Bilateral pneumonia Hypokalemia Closed fracture of neck of left femur s/p Percutaneous Screw Fixation 08/09/22 Constipation Diabetes mellitus type 2 in obese Chronic iron deficiency anemia ETOH abuse Poorly controlled diabetes mellitus Chronic pancreatitis due to acute alcohol intoxication Alcohol abuse Per pt. states she has never had an issues with any subtances History of pilonidal cyst Anxiety Surgical History Status post hip surgery History of total left hip arthroplasty (01/19/23) S/P laparoscopic procedure cyst removed from stomach per patient S/P surgical removal of pilonidal cyst History of esophagogastroduodenoscopy (EGD) (~06/10/21) History of colonoscopy with polypectomy (~06/10/21) History of hysterectomy History of tonsillectomy History of section Family History Father Hypertension Diabetes Heart disease Social History Smoking/Tobacco Use Status: Never Smoking risk assessment performed?: Yes Alcohol Intake: never Drug use: Never Substance use type: does not use Household members: spouse Housing: apartment Number of Children: 2 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 Readmission Within the Past 30 Days Yes or No: No SDOH(Care Management) Screening Will the Patient Participate in the Screening?: Yes Do you worry about having a steady place to live?: no In the past 12 months, have you had to go without electric, gas, oil or water in your home?: no Have you or anyone in your house had to go without enough food to eat?: no Has lack of transportation kept you from medical appointments or from doing things needed for daily living?: no Has anyone in your support network made you feel unsafe for any reason?: no
[2024-04-20] MEDS: methylPREDNISolone SUCC 40 MG VIAL IVP ×2 (10:15→22:58)
--- NOTE | 2024-04-20 10:29 | W.INDIABCONS ---
Date of service: 04/20/24 Time of Service: 10:42 Diabetes Inpatient Consult Reason for Visit: consult received - tube feed recommendations, diabetes ed/mgt DESCRIPTION/ASSESSMENT: Ms Irving admitted with COPD exacerbation - known to me from prior admission. Her weight is has been stable since last admission )see note 03/10/24. Current estimated energy needs similar to March - 1663kcals, 80-99g protein and 1664mL fluid (pt able to take some fluids po to supplement flushes and IV fluids) As we do not carry her home enteral formula, would recommend the same approach as her last recent admission: 92mL of Jevity 1.5 per hour over the same 12 hour cycle she uses at home with 30-60mL water flushes between any meds administered via PEG tube and 30-60mL before and after each feeding. Pt continues her jardiance and basal insulin this admission with sliding scale corrections TID with insulin aspart. - will monitor glucose control and make suggestions as necessary. INTERVENTION: above tube feeding recommendation PLAN: monitor tolerance, po intake of fluids, and glucose trends for any recommended changes to current order. Time Spent in Nutritional Counseling and Treatment: 0
[2024-04-20] MEDS: Insulin Aspart 300 UNITS/3 ML PEN SC ×2 (12:37→17:24)
[2024-04-20] MEDS: Enoxaparin 40 MG/0.4 ML SYR SC (12:37)
--- NOTE | 2024-04-20 13:15 | PT.INIE ---
PT Notes Visit Reasons: COPD Physical Therapy Initial Evaluation Date: 04/20/2024 Referring Doctor: Lindsey Esparza NP PT Orders: PT CONSULT: Safety consult for discharge Precautions: NPO, PEG head of bed elevated greater than 30 degrees at all times, standard precautions, fall risk Patient Profile/Admitting Diagnosis: Patient is 63-year-old female presenting to the ED with cough, increased shortness of breath and decreased O2 saturations. EMS en route had placed patient on nonrebreather then patient was transition to 4 L via nasal cannula. Chest x-ray revealed mild pulmonary edema. Patient negative for flu/COVID/RSV. Patient diagnosed with COPD exacerbation and CHF. Treated with IV steroids with last dose today and will change to p.o. on 04/21/2024 patient also received DuoNebs, antibiotics and a one-time dose of Lasix. 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) Medical History HFrEF (heart failure with reduced ejection fraction) Pre-op evaluation Abnormal chest xray H/O: pneumonia Anemia Drug-induced parkinsonism Neuroleptic induced parkinsonism Tubular adenoma (~06/10/21) Hyperplastic colon polyp (~06/10/21) Farrell's 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 Erosive esophagitis Esophageal ulcer with bleeding Farrell's esophagus Chronic diarrhea Black tarry stools Pleural effusion Leukocytosis Ventral hernia Cholelithiasis Atrial flutter Diabetes Bipolar 1 disorder Depression COVID Acute respiratory failure with hypoxia Acute on chronic respiratory failure with hypoxia Lab test positive for detection of COVID-19 virus Gastrostomy tube obstruction Aspiration pneumonia Pneumonitis Acute respiratory failure with hypoxia and hypercarbia Myocardial injury COPD with acute exacerbation NSTEMI (non-ST elevated myocardial infarction) Per pt. states she did not have a heart attackBronchiolitis Acute on chronic respiratory failure with hypoxia and hypercapnia Hypotension Vitamin D deficiency Esophageal stricture Chronic systolic (congestive) heart failure Aspiration pneumonia Stress-induced cardiomyopathy acute onset managed at [facility] [place] 08/30 pressors, EF 25%, has since recovered RHAcute cardiogenic pulmonary edema Acute metabolic encephalopathy Bilateral pneumonia Hypokalemia Closed fracture of neck of left femur s/p Percutaneous Screw Fixation 08/09/22Constipation Diabetes mellitus type 2 in obese Chronic iron deficiency anemia ETOH abuse Poorly controlled diabetes mellitus Chronic pancreatitis due to acute alcohol intoxication Alcohol abuse Per pt. states she has never had an issues with any subtancesHistory of pilonidal cyst Anxiety Surgical History Status post hip surgery History of total left hip arthroplasty (01/19/23) S/P laparoscopic procedure cyst removed from stomach per patientS/P surgical removal of pilonidal cyst History of esophagogastroduodenoscopy (EGD) (~06/10/21) History of colonoscopy with polypectomy (~06/10/21) History of hysterectomy History of tonsillectomy History of section Social History/Home Situation: Patient resides with single level home with 3 steps to enter with right rail ascending. She has recently returned to ambulation without a device. She was receiving outpatient PT status post total hip arthroplasty on 03/01/2024. is extremely attentive and involved in her care. Patient utilizes oxygen at night Equipment Owned/DME: FWW, oxygen at night Subjective: Patient reporting she is excited to get out of bed and walk.she states states she knows her will be happy about that. Patient agreeable to participate in evaluation Objective: General Observation: Patient presented supine in bed with head of bed elevated to 60 degrees tube feeding infusing telemetry in place. No oxygen in place at this time Mental Status: Alert and oriented x 3 pleasant cooperative motivated to get out of bed and walk Pain: Denies Vitals: Monitored by nursing via telemetry throughout; O2 sat at rest 96% on room air and 92% with ambulation on room air. ROM: Right Upper Extremity: Within functional limits Left Upper Extremity: Within functional limits Right Lower Extremity: Within functional limits Left Lower Extremity: Within functional limits Strength: Slight tremor noted right upper extremity Right Upper Extremity: Grossly 4/5 Left Upper Extremity: Grossly 4/5 Right Lower Extremity: hip flexion 4/5, abduction 3+/5, knee extension 4/5, knee flexion 4-/5, ankle 4/5 Left Lower Extremity: Hip flexion 4/5 abduction 4-/5, knee extension 4/5 knee flexion 4/5, ankle 4/5 Sensation: Intact Bed Mobility/Transfers: Supine to sit independent Sit to stand SBA Stand to sit SBA Bed to chair CGA without assistive device Gait: Patient ambulated 50 feet without assistive device CGA with antalgic gait positive Trendelenburg pattern demonstrating adequate foot clearance with diminished step length bilaterally on level surfaces including turns. Patient noted with dyspnea developing during the last 12 feet of the 50 feet. Stairs: 2 steps with right rail ascending CGA with step to pattern Balance: Static Sitting: Normal Dynamic Sitting: Good Static Standing: Good Dynamic Standing: +Fair Special Tests: Mobility Limitations Standardized Measure [facility] AM-PAC 6 clicks Basic Mobility Inpatient Short Form: Raw Score: 21 CMS Score: 28.97% Informed Consent/Education: Patient instructed in purpose of PT consult. At end of session has been educated on patient current status and functional abilities patient present at that time. Treatment: 92437 : transfers with FWW SBA and cues for safe hand placement -step turn transfers without device surface to surface bed to commode, commode to chair, chair to chair with CGA -Facilitated safe and correct performance of level surface ambulation covering a distance of 200 feet using use front wheeled walker with SBA and wheelchair follow for safety. Did not report of any increased pain. Denied headache, chest pain, and lightheadedness throughout activity. Minimal verbal cueing provided for directional changes, and posture. Assessment: Pt is 63 yo female presenting with OH during functional mobility without AD. Pt demonstrates decreased ability to walk long distances ( <50 feet) without UE support of FWW at this time. Patient presents with clinical signs and symptoms consistent with current/admitting diagnoses that have resulted to mobility limitations, gait instability, generalized weakness, and impairment of motor control as demonstrated by the following impairment level findings: 1. Decreased strength to B LE major muscle groups R>L 2. Impaired standing balance without UE support 3. Limitation of joint range of motion in right hip 4. Impaired functional activity tolerance in standing without upper extremity support Impairments are contributing to the following functional limitations: 1. Inability to safely ambulate without assistive device 2. Increase completion time for mobility/ ADL performance 3. Increased fall risk 4. Inability to safely perform stairs without physical assistance. Patient is assessed as a moderate complexity based on the following: History: 63-year-old female with impairment level findings, functional limitations, and past medical history as indicated above Examination: Demonstrable impairment in strength, balance, and mobility level with underlying impairments and functional limitations as documented above Presentation: Evolving Decision Making: Moderate Goals: 1. Independent transfers without assistive device 2. Supervision ambulation greater than 150 feet level surfaces without assistive device 3. Supervised performing 3 steps with right railing ascending to safely enter and exit home Plan of Care/Treatment Plan: Pt would benefit from skilled PT 1-2 times per day for global strengthening, transfers, ambulation, pain management and balance facilitation. 7 times per week x 1 week. Plan of care has been reviewed with the GREIGE MENDER providing the service under the physical therapy direction. Initiate physical therapy intervention for strengthening, transfers, gait, stairs, balance training. DISCHARGE RECOMMENDATIONS: Home with resumption of outpatient PT services. Patient has appointment scheduled for 04/24/2024 TREATMENT CODE/TIME: 27456, [id number] Thank you for the opportunity to participate in the care of this patient. Pam Chaudhari PT [facility] Please sign an return this page within 30 days if you agree with the above POC. Thank you! Physician Signature Date [facility]
[2024-04-20] MEDS: Ondansetron O.D.T. 4 MG TABEF 8 MG NG (14:32)
[2024-04-20] MEDS: Docusate Sodium 100 MG/10 ML CUP PO ×2 (14:32→20:45)
--- NOTE | 2024-04-20 16:15 | CHAPLAIN ---
Jennifer and I know each other from her previous admissions. She was sitting up in the recliner when I visited. Jennifer was very pleasant and talking about looking forward to having her two sons home for [place], and planning on baking cookies with them. Jennifer said she thinks she'll be here for another night. I will visit again tomorrow.
[2024-04-20] MEDS: Melatonin 3 MG TAB 9 MG PO (20:45)
[2024-04-20] MEDS: DULoxetine 20 MG CAP PO (20:46)
[2024-04-20] MEDS: QUEtiapine 100 MG TAB PO (20:47)
[2024-04-20] MEDS: Insulin Glargine 300 UNITS/3 ML PEN 10 UNITS SC (21:03)
[2024-04-21] VITALS (7 sets, daily range): BP systolic 103–120; BP diastolic 55–68; PULSE 67–88; RESP 3–18; TEMP 36.2–36.5; O2SAT 93–98
[2024-04-21] MEDS: Insulin Aspart 300 UNITS/3 ML PEN SC ×3 (00:26→12:06)
[2024-04-21] MEDS: Albuterol/Ipratropium 3 ML UPD VIAL UPD ×2 (02:18→08:38)
[2024-04-21 07:03] LABS: BUN 32 mg/dL (7-18); Calcium 10.2 mg/dL (8.5-10.1); Chloride 106 mmol/L (98-107); Glucose 180 mg/dL (74-106); Potassium 4.5 mmol/L (3.5-5.1); Sodium 148 mmol/L (136-145)
[2024-04-21 07:23] LABS: Abs Immature Grans 0.04 10^3/uL (0.0-0.06); Absolute Basophil Count 0.02 10^3/uL (0.0-0.2); Absolute Lymphocyte Count 0.53 10^3/uL (1.2-3.4); Absolute Monocyte Count 0.42 10^3/uL (0.1-0.8); Absolute Neutrophil Count 7.45 10^3/uL (1.2-6.7); Basophils % 0.2 %; HCT 41.1 % (36.0-46.0); HGB 12.8 g/dL (11.2-15.7); Immature Grans % 0.5 %; Lymphocytes % 6.3 %; MCH 27.9 pg (27.0-33.0); MCHC 31.1 % (32.0-36.0); MCV 90 fL (80-95); MPV 11.7 fL (8.0-11.0); Platelet Count 193 10^3/uL (130-400); RBC 4.59 10^6/uL (3.93-5.22); RDW 14.6 % (11.7-14.6); RDW-SD 48.1 fL; WBC 8.46 10^3/uL (4.4-10.8)
[2024-04-21] MEDS: Docusate Sodium 100 MG/10 ML CUP NG (07:57)
[2024-04-21] MEDS: Doxycycline Hyclate 100 MG CAP NG (07:58)
[2024-04-21] MEDS: Atorvastatin 40 MG TAB 80 MG NG (07:58)
[2024-04-21] MEDS: Sacubitril/Valsartan 24 mg/26 mg TAB 1 EACH NG (07:59)
[2024-04-21] MEDS: DULoxetine 30 MG CAP 60 MG NG (07:59)
[2024-04-21] MEDS: buPROPion 100 MG TAB 300 MG NG (07:59)
[2024-04-21] MEDS: Metoprolol CR 25 MG TABCR PO (07:59)
[2024-04-21] MEDS: predniSONE 20 MG TAB 40 MG NG (07:59)
[2024-04-21] MEDS: Sucralfate 1 GM TAB PO ×2 (07:59→11:44)
[2024-04-21] MEDS: Empaglifozin 10 MG TAB NG (08:00)
[2024-04-21] MEDS: Normal Saline Flush 10 ML SYR IVP (08:00)
[2024-04-21] MEDS: Folic Acid 1 MG TAB NG (08:00)
[2024-04-21] MEDS: Aspirin 81 MG CHEW NG (08:00)
--- NOTE | 2024-04-21 09:20 | PTTR_ITS ---
PT Notes Visit Reasons: COPD Inpatient Physical Therapy Treatment Note [facility] Date: 04/21/24 PRECAUTIONS:NPO PEG tube ; HOB elevated >30 degrees at all times, Fall risk , telemetry, standard SUBJECTIVE: Pt stated she wanted to return home because she can drink whatever she wants there. OBJECTIVE:Pt received seated in chair drinking grape juice which she swallowed then immediately couched upand regurgitated into basket next to her. Pt reminded she is currently nothing by mouth and glass removed. Nurse notified glass was in room and removed? PAIN: denies VITALS: ?Monitored via telemetry throughout including pulse Ox via ear probe Therapeutic Activities (71446): Direct one-on-one instruction in dynamic activities to improve functional performance. ?? BED MOBILITY/TRANSFERS? Rolling L/R: Not tested Supine-sit: SBA with HOB at 40 degrees d/t aspiration precaution? Sit-supine: SBA?with HOB at 40 degrees d/t aspiration precaution? Sit-stand: SBA? Stand-sit: SBA? Bed-Chair: SBA with and without AD? Chair-bed: SBA with and without AD Provided skilled cues and instruction on performance and technique throughout. Gait Training (34501): Direct one-on-one instruction and skilled instruction in: [X] turning and movement with proper form [X] Patient education regarding pacing and breathing techniques to maximize activity tolerance? GAIT? Assistive Device: no AD? Weight bearing: WBAT Assist: SBA/CGA? Distance:? 50 ft x 2? Deviation: pt demo. increased lateral weight shift to left during swing phase on right. Pt intermittently seeks out UE support despite no LOB. ? Gait: with FWW 150 feet Supervision level surfaces including multiple direction changes with reciprocal pattern demonstrating no excessive lateral weight shift to advance RLE. STAIRS: 2 6 inch steps and three 4 inch steps with 1 rail CGA with intermittent cues for sequencing ? ASSESSMENT: Patient presents with slight increase confusion as compared to evaluation yesterday. Patient noted with delayed processing and need for cues for sequencing on stairs. Pt tolerated session well and demonstrated improved activity tolerance in stand without AD and without OH/SOB PLAN: Pt would benefit from skilled PT 1-2 times per day for global strengthening, transfers, ambulation, pain management and balance facilitation x 7 days/week plan of care has been reviewed with the LINUX SYSTEMS ENGINEER providing the service under physical therapist direction. Initiate physical therapy interventions for strengthening, transfers, gait, stairs, balance training. TREATMENT CODE/TIME: 29609 x16 mins for 1 unit; 61952 x 9 minutes/[id number] DISCHARGE RECOMMENDATION: Home with resumption of outpatient PT services Nurse
[2024-04-21] MEDS: Ferrous Sulfate 44 MG/ML Liquid 176 MG NG (09:22)
[2024-04-21 11:24] LABS: Lab Add On Test DONE
[2024-04-21 11:44] LABS: Magnesium 2.2 mg/dL (1.8-2.4)
[2024-04-21] MEDS: Enoxaparin 40 MG/0.4 ML SYR SC (11:44)
--- NOTE | 2024-04-21 12:41 | DSE_ITS ---
Date of service: 04/21/24 Time of Service: 12:42 DS: Diagnosis Discharge Diagnosis (1) Acute hypoxic respiratory failure: Status: Acute (2) COPD exacerbation: Status: Acute (3) Insulin dependent type 2 diabetes mellitus: Status: Chronic (4) PEG (percutaneous endoscopic gastrostomy) status: Status: Chronic (5) On deep vein thrombosis (DVT) prophylaxis: Status: Acute (6) Discharge planning issues: Status: Acute Discharge Plan Disposition Patient Disposition: Home Condition: Fair Discharge Details Reason For Visit: COPD Admit Date/Time: 04/20/24 02:05 Admit Provider: Geronimo Ortiz Attending Provider: Geronimo Ortiz Primary Care Provider: Ana Gillespie Hospital Course Hospital Course: Admitting Diagnosis: * Acute exacerbation of COPD * Hypoxia * Possible viral or bacterial pneumonia * Mild congestive heart failure (CHF) exacerbation Past Medical History: * Mixed respiratory disease (CHF, COPD) * Insulin-dependent diabetes mellitus * Bipolar disorder * Dysphagia with chronic feeding tube * Recent left hip ORIF, currently at home after rehabilitation with physical therapy and some home health services Presenting Complaint: The patient presented with increased difficulty breathing, hypoxia, worsening cough with bronchospastic fits, posttussive emesis, and subjective fevers and chills. She was on supplemental oxygen at home, but her oxygen saturation dropped to the 70s at home, with significant shortness of breath. Clinical Course: Upon arrival to the hospital, the patient was initially hypoxic. Difficulty obtaining a normal oxygen saturation reading was noted due to waveform issues, but once a reliable reading was obtained, her oxygen saturation was 92% on 4L nasal cannula, which was lower than her usual baseline. She was started on supplemental oxygen, bronchodilators (DuoNeb), and IV steroids (methylprednisolone). Diagnostic workup, including chest x-ray, ABG, and viral swab, indicated a possible COPD exacerbation with potential viral or bacterial infection. The chest x-ray showed mild pulmonary edema, likely related to CHF, but no significant change in her proBNP level was observed, indicating that CHF exacerbation was mild. An ABG showed no significant CO2 retention, and her white blood cell count was normal. The viral swab was negative for common viral pathogens. Diagnostic Findings: * Chest X-ray: Mild pulmonary edema, increased interstitial prominence, and signs of congestive heart failure. Atypical viral infiltrative processes cannot be ruled out. * ABG: pH 7.47, pCO2 47, pO2 70. * White Blood Cell Count: 7 (normal). * Chemistry Panel: Unremarkable. * Troponin: Negative. * BNP: 243 (elevated but not indicative of acute CHF exacerbation). Management: The patient received supplemental oxygen and bronchodilators (DuoNeb) in the ED. IV Solu-Medrol and IV Lasix were also administered. Oxygen saturation improved with these treatments, although the patient?s breathing did not return to baseline. She remained comfortable with the management in the ED. Given the persistence of hypoxia despite therapy, the decision was made to admit the patient for further evaluation and management. Likely contributing factors included a COPD exacerbation, possible pneumonia, and mild CHF exacerbation. Treatment Plan: * Initiate oral prednisone (5-day burst). * Start doxycycline to cover for possible bacterial infection. * Add cefpodoxime as additional antibiotic coverage. * Prescribed albuterol inhaler (with spacer) for continued bronchodilation. * Discharge Instructions: Continue the prednisone taper for 5 days, complete the courses of doxycycline and cefpodoxime, and use the albuterol inhaler as needed for respiratory distress. Follow-up and Recommendations: * The patient is referred back to her primary care provider (PCP) for further management of her COPD, including potential initiation of maintenance therapy, however this acute hypoxic respiratory failure may have been realted to the acute Pneumonia and not COPD. * Oxygen therapy will continue at home as needed. * The patient does not have a nebulizer or any other inhalers aside from the albuterol inhaler prescribed with a spacer. Discharge Medications: * Prednisone (oral) ? 5-day taper. * Doxycycline (oral) ? Complete 7-day course. * Cefpodoxime (oral) ? Complete 7-day course. * Albuterol inhaler (with spacer) ? Use as needed for shortness of breath. * Continue home feedings per the orders prior to hospitalization, with no changes to the feeding regimen. Discharge Instructions: * Follow up with PCP for further COPD management and possible referral to pulmonology. * Monitor for worsening respiratory symptoms, fever, or other complications. * Return to the ED or urgent care if respiratory symptoms worsen or new symptoms develop. Home Meds and New Rx's Prescriptions: New prednisone 20 mg Tablet 40 mg feeding tube DAILY Qty: 10 0RF albuterol sulfate 90 mcg/actuation HFA aerosol inhaler 2 puff inhalation 6XD PRNQty: 8.5 0RF (DME) Space Chamber Spacer See Rx Instructions .Route Qty: 1 0RF Rx Instructions: As directed doxycycline hyclate 100 mg Capsule 100 mg feeding tube BID Qty: 7 0RF cefpodoxime 200 mg tablet 200 mg PO BID Qty: 10 0RF Rx Instructions: must administer with a meal/food Continued bupropion HCl 100 mg tablet 300 mg PO DAILY Patient Comments: via g-tube, per pcp ov notes 12/09/22 RH protein Powder See Rx Instructions PO .COMPLEX Rx Instructions: 2 scoops daily duloxetine [Cymbalta] 20 mg capsule,delayed release(DR/EC) 20 mg PO HS Patient Comments: TAKE 1 CAPSULE PER DAY VIA G-TUBE IN THE EVENING duloxetine [Cymbalta] 60 mg capsule,delayed release(DR/EC) 60 mg PO DAILY sacubitril-valsartan [Entresto] 24-26 mg tablet 1 tab feeding tube BID Patient Comments: via g-tube Jardiance 10 mg tablet 10 mg PO DAILY atorvastatin 80 mg tablet 80 mg PO DAILY valproic acid (as sodium salt) 250 mg/5 mL solution 300 mg PO TID Rx Instructions: 6mls TID metoprolol succinate 50 mg tablet extended release 24 hr 25 mg PO BID sucralfate 1 gram tablet 1 g PO QID Patient Comments: TAKE ONE TABLET BY MOUTH FOUR TIMES A DAY folic acid 1 mg Tablet 1 mg PO DAILY Qty: 0 0RF ferrous sulfate 300 mg (60 mg iron)/5 mL liquid 300 mg feeding tube .QOD Patient Comments: TAKE 5ML VIA G-TUBE EVERY OTHER DAY Humulin N NPH Insulin KwikPen 100 unit/mL (3 mL) insulin pen See Rx Instructions .ROUTE .COMPLEX Qty: 0 0RF Rx Instructions: 20 units at 11 am followed by sliding scale at 3 pm (5 units for blood sugar of 250 plus 1 additional unit for any 20 points that the blood sugar is above 250) ibuprofen 100 mg/5 mL suspension 600 mg PO Q8H PRN guaifenesin 200 mg/5 mL liquid 200 mg feeding tube Q4H PRNQty: 118 0RF aspirin 81 mg tablet,chewable 81 mg feeding tube DAILY Qty: 30 0RF acetaminophen 500 mg/15 mL liquid 1,000 mg PO Q8H PRNQty: 237 2RF nystatin 100,000 unit/gram powder 1 applic TOPICAL TID PRN Patient Comments: APPLY TO BUTTOCKS THREE TIMES A DAY NEEDED pantoprazole [address] for susp in packet 40 mg G-tube DAILY Patient Comments: Take 1 packet via g-tube twice a day Administer in 10 mL of apple juice via g-tub, then follow with another 10 mL. nystatin 100,000 unit/gram cream 1 applic TOPICAL TID PRN Patient Comments: APPLY A SMALL AMOUNT TO AFFECTED AREA(S) ON BUTTOCKS THREE TIMES A DAY NEEDED melatonin 3 mg tablet 9 mg feeding tube HS Patient Comments: TAKE THREE TABLETS VIA G-TUBE EVERY NIGHT DIRECTED insulin glargine [Lantus Solostar U-100 Insulin] 100 unit/mL (3 mL) insulin pen 10 unit SUBCUT QPM Patient Comments: INJECT 10 UNITS UNDER THE SKIN NIGHTLY DIRECTED ondansetron HCl 4 mg tablet 8 mg feeding tube Q8H PRN Patient Comments: TAKE ONE TABLET VIA G-TUBE EVERY 8 HOURS NEEDED quetiapine 100 mg tablet 100 mg PO HS Qty: 0 0RF nystatin 100,000 unit/gram ointment 1 applic TOPICAL BID Patient Comments: APPLY TO AFFECTED AREA(S) TWO TIMES A DAY Discharge Instructions Instructions: Exacerbation of COPD (DC), Medicines for COPD, Albuterol, Cefpodoxime, Doxycycline, Prednisone Additional Instructions: Take prednison, doxycyline and cefpodoxime until finished. Stand Alone Forms: Nursing Discharge Form Referrals: Ana Gillespie [Primary Care Provider] - 04/28/24 10:00 am (1 week - COPD exacerbation hospitalization - I would suggest this acute hypoxic respiratory failure was secondary to PNA more so than COPD exacerbation - she has a complicated medical history; not on LAMA LABA or ICS -- Follow-up and Recommendations: The patient is referred back to her primary care provider (PCP) for further management of her COPD, including potential initiation of maintenance therapy. ? Oxygen therapy will continue at home as needed. ? The patient does not have a nebulizer or any other inhalers aside from the albuterol inhaler prescribed with a spacer. Discharge Medications: ? Prednisone (oral) ? 5-day taper. ? Doxycycline (oral) ? Complete 7-day course. ? Cefpodoxime (oral) ? Complete 7-day course. ? Albuterol inhaler (with spacer) ? Use as needed for shortness of breath.) Activity:: Activity as Tolerated Equipment/Supplies:: Oxygen (L/min Below) Diet:: [facility] Discharge Orders Discharge Orders: Discharge Order (Routine); Ordered 04/21/24 Ordered By: Onelia Hidalgo DS: Summary Time Spent with Patient providing and/or coordinating discharge services: Greater than 30 minutes Status at Discharge Functional status at discharge: uses cane/walker Overall status at discharge: patient is back to baseline Mental Status: mental status grossly normal Speech and Movement: speech and movement normal Mood: congruent mood Affect: normal affect Quality:SDOH Health Related Social Needs: No Data to Display Exam Narrative Exam Narrative: Constitutional: Alert and oriented x3. Appears stated age. Normal body habitus. Head: Normocephalic, no trauma. Eyes: Pupils PERRL, Red reflex noted, EOM's intact. Eyelids symmetrical without lesions, discharge, or swelling. Chest: RRR, Normal S1, S2, distal pulses intact. Resp: Lungs clear to auscultation bilaterally, no wheezes, rales, or rhonchi. No increased WOB Abdomen: Soft, non-distended, BS present x 4. Musculoskeletal: weak, at baseline Skin: No suspicious rashes or lesions. Capillary refill less than 2 sec. Neurologic: Cranial nerves II-XII intact. Alert and oriented x 3. Motor: No deficits noted. Sensory: Intact bilaterally all 4 extremities. Hematologic/Lymphatic: No ecchymosis, no lymphadenopathy. Psych Mental Status: mental status grossly normal Speech and Movement: speech and movement normal Mood: congruent mood Affect: normal affect DS: Data Vitals/I&O Vitals and I&O: Vital Signs Temperature 36.4 C L 04/21/24 11:29 Temperature Source Tympanic 04/21/24 11:29 Pulse 67 04/21/24 11:29 Pulse Rhythm Regular 04/20/24 04:06 Respiratory Rate 16 04/21/24 11:29 Respiratory Effort Short of Breath 04/20/24 04:06 Respiratory Depth Deep 04/20/24 04:06 Respiratory Pattern Tachypnea 04/20/24 04:06 Blood Pressure 103/58 L 04/21/24 11:29 Blood Pressure Position Sitting 04/19/24 23:11 Pulse Oximetry 93 04/21/24 11:29 Oxygen Delivery Method Room Air 04/21/24 11:29 Oxygen Flow Rate 0 04/21/24 11:29 Fraction of Inspired Oxygen (FIO2) 80 04/20/24 04:09 Pain Level 0 04/21/24 12:31 Comment RN notified 04/21/24 11:29 Intake & Output 04/20/24 04/21/24 04/21/24 23:59 11:59 23:59 Intake Total Output Total 1874 325 / 425 100 / 425 Balance -1854 -325 / -425 -100 / -425 Intake: IV Output: Gastric Drainage 980 / 980 Lt Upper Quadrant 980 / 980 Urine 895 / 1070 325 / 425 100 / 425 Other: Urine Color Yellow Pale Yellow Urine Appearance Clear Clear Urine Odor Normal Normal Comment unknown void- pt stuffed tp into hat, absorbed urine. Data Completed and Pending Labs on day of discharge: Labs from last 24 hours 04/21/24 04/21/24 Unknown 06:27 WBC 8.46 RBC 4.59 Hgb 12.8 Hct 41.1 MCV 90 MCH 27.9 MCHC 31.1 L RDW 14.6 Plt Count 193 MPV 11.7 H Immature Gran % 0.5 Neutrophils % 88.0 Lymphocytes % 6.3 Monocytes % 5.0 Eosinophils % 0.0 Basophils % 0.2 Nucleated RBC % 0.0 Absolute Neutrophils 7.45 H Absolute Lymphocytes 0.53 L Absolute Monocytes 0.42 Absolute Eosinophils 0.00 Absolute Basophils 0.02 Sodium 148 H Potassium 4.5 Chloride 106 Carbon Dioxide 37.0 H Anion Gap 5.0 BUN 32 H Creatinine 1.0 Est GFR (CKD-EPI 2020) 63.30 Glucose 180 H Calcium 10.2 H Magnesium 2.2 Add-On Test Request DONE Preliminary micro results at discharge 04/20/24 01:10 Blood Culture - Preliminary Blood NO GROWTH 24 HOURS 04/19/24 23:24 Blood Culture - Preliminary Blood NO GROWTH 24 HOURS 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) Medical History HFrEF (heart failure with reduced ejection fraction) Pre-op evaluation Abnormal chest xray H/O: pneumonia Anemia Drug-induced parkinsonism Neuroleptic induced parkinsonism Tubular adenoma (~06/10/21) Hyperplastic colon polyp (~06/10/21) Farrell's 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 Erosive esophagitis Esophageal ulcer with bleeding Farrell's esophagus Chronic diarrhea Black tarry stools Pleural effusion Leukocytosis Ventral hernia Cholelithiasis Atrial flutter Diabetes Bipolar 1 disorder Depression COVID Acute respiratory failure with hypoxia Acute on chronic respiratory failure with hypoxia Lab test positive for detection of COVID-19 virus Gastrostomy tube obstruction Aspiration pneumonia Pneumonitis Acute respiratory failure with hypoxia and hypercarbia Myocardial injury COPD with acute exacerbation NSTEMI (non-ST elevated myocardial infarction) Per pt. states she did not have a heart attack Bronchiolitis Acute on chronic respiratory failure with hypoxia and hypercapnia Hypotension Vitamin D deficiency Esophageal stricture Chronic systolic (congestive) heart failure Aspiration pneumonia Stress-induced cardiomyopathy acute onset managed at [facility] 08/30 pressors, EF 25%, has since recovered RH Acute cardiogenic pulmonary edema Acute metabolic encephalopathy Bilateral pneumonia Hypokalemia Closed fracture of neck of left femur s/p Percutaneous Screw Fixation 08/09/22 Constipation Diabetes mellitus type 2 in obese Chronic iron deficiency anemia ETOH abuse Poorly controlled diabetes mellitus Chronic pancreatitis due to acute alcohol intoxication Alcohol abuse Per pt. states she has never had an issues with any subtances History of pilonidal cyst Anxiety Surgical History Status post hip surgery History of total left hip arthroplasty (01/19/23) S/P laparoscopic procedure cyst removed from stomach per patient S/P surgical removal of pilonidal cyst History of esophagogastroduodenoscopy (EGD) (~06/10/21) History of colonoscopy with polypectomy (~06/10/21) History of hysterectomy History of tonsillectomy History of section Family History Father Hypertension Diabetes Heart disease Social History Smoking/Tobacco Use Status: Never Smoking risk assessment performed?: Yes Alcohol Intake: never Drug use: Never Substance use type: does not use Household members: spouse Housing: apartment Number of Children: 2 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
--- NOTE | 2024-04-21 13:19 | PDOC.CMDIS ---
Date of service: 04/21/24 Time of Service: 13:22 LACE Index Scoring Tool Questions: Length of Stay (in days): 1 Was the patient admitted via the E.D.?: Yes Comorbidities: Previous M.I., Diabetes w/o Complication and Chronic Pulmonary Disease E.D. Visits: 3 Answers: Total Score: 12 Risk of Readmission: High Risk Care Management Discharge Plan Reason for Hospitalization: COPD exacerbation Discharge Plan: Jennifer was discharged home today with no new services. She was discharged with new orders for 2 antibiotics and a short course of prednisone. Jennifer will continue with her home O2, as coordinated by respiratory, and with her tube feedings as prior to admission. The discharge summary will be faxed to [facility] by this CM at [phone]. [facility] has already been notified of her discharge. Jennifer will also continue in her outpatient PT program. Jennifer will f/u with her PCP on 04/28, she will transport home with her , and continue per her plan of care. Patient/Family Education Needs: Review of d/c instructions, activity, limitations , f/u plan and ask me 3. SDOH Health Related Social Needs: No Data to Display
--- NOTE | 2024-04-21 13:57 | CHAPLAIN ---
I visited with Jennifer shortly before she was discharged. She was waiting for Rogelio to pick her up and was looking forward to being home and spending time with her two sons over the holidays.
== END 2024-04-21 13:55 | disposition home or self-care (01) | DRG 190 ==
LOC: ER 04-20 02:46 → MS 04-20 04:02
PROVIDERS: Family Medicine; Nurse Practitioner Acute Care; Admitting Provider General Practice; Emergency Provider Emergency Medicine Emergency Medical Services; PCP Nurse Practitioner Family; Visit Provider General Practice
DX: J44.1 Chronic obstructive pulmonary disease with (acute) exacerbation (principal); J96.01 Acute respiratory failure with hypoxia; I50.20 Unspecified systolic (congestive) heart failure; G21.11 Neuroleptic induced parkinsonism; K22.10 Ulcer of esophagus without bleeding; I48.92 Unspecified atrial flutter; Z79.4 Long term (current) use of insulin; Z93.1 Gastrostomy status; Z79.899 Other long term (current) drug therapy; J44.0 Chronic obstructive pulmonary disease with (acute) lower respiratory infection; J20.9 Acute bronchitis, unspecified; R13.10 Dysphagia, unspecified; K52.9 Noninfective gastroenteritis and colitis, unspecified; E55.9 Vitamin D deficiency, unspecified; F10.10 Alcohol abuse, uncomplicated; E11.65 Type 2 diabetes mellitus with hyperglycemia; D50.9 Iron deficiency anemia, unspecified; F31.9 Bipolar disorder, unspecified; I25.2 Old myocardial infarction; Z96.643 Presence of artificial hip joint, bilateral
CPT/HCPCS: 00123; 36415; 36416; 80048; 82803; 82805; 82962; 87040; 87637; 93005; 94640; 96374; 96375; 97116; 97162; 97530; 99285; J1650; 36600; 71045; 80164; 83735; 83880; 84484; 85025; 93010; 94660; 94664; 94667; 94760; 99223; 99239; J1815; J1940; J2919; J7512; J7620

== ENCOUNTER 2024-05-01 00:02 | Inpatient (IN) | payer MEDICAID, SELFPAY ==
--- NOTE | 2024-04-30 23:30 | RT.EKG_ITS ---
APPROVED REPORT Exam: Resting ECG Reason for Exam: sob Patient Location: E HR:86 bpm ECG Measurements Heart Rate 86 AXIS SD 148 P 100 QRSd 89 QRS 71 QT 414 T [id number] QTc 495 Conclusion Sinus rhythm...normal P axis, V-rate 60- 99 Low voltage, extremity leads...all extremity leads <0.5mV borderline prolonged QT, otherwise appropraite intervals limited interp 2/t baseline artifact multiple leads; within limits to ST segement or T wave abnoramli tites to suggest occlusive PA.
[2024-04-30 23:41] VITALS: BP 133/107; PULSE 90; RESP 20; TEMP 36.1; O2SAT 98
[2024-04-30 23:44] VITALS: BP 133/107; PULSE 184; RESP 17; O2SAT 98
[2024-04-30 23:45] VITALS: RESP 23; O2SAT 100
--- NOTE | 2024-04-30 23:45 | DI.RAD_ITS ---
Exam(s) XR CHEST 2V PA LATERAL EXAM: XR CHEST 2V PA LATERAL CLINICAL HISTORY: SOB TECHNIQUE: 2D digital imaging was performed. Two views. COMPARISON: CR XR CHEST 2V PA LATERAL from 12/17/[address] CHEST PE ABD PELVIS W from 01/31/2023 CR,XR XR PORTABLE CHEST AP from 05/03/2023 CR,XR XR PORTABLE CHEST AP from 04/19/2024 FINDINGS: HEART: Normal size. Aorta: Not dilated. PULMONARY VASCULATURE: Normal. MEDIASTINUM: Increased density and enlargement of the upper mediastinum, consistent with a dilated up per esophagus which was demonstrated on previous examinations. LUNGS: Patchy infiltrate in the left lower lobe. PLEURAL SPACE: No pleural effusion or pneumothorax. BONE:Unremarkable for age. SOFT TISSUES: Unremarkable. IMPRESSION: Left lower lobe pneumonia. Dilatation of upper esophagus, chronic finding. DATA REPOSITORY: RADIATION DOSE DELIVERED:
--- NOTE | 2024-04-30 23:45 | RT.EKG_ITS ---
APPROVED REPORT Exam: Resting ECG Reason for Exam: sob Patient Location: I HR:85 bpm ECG Measurements Heart Rate 85 AXIS [place] [id number] P [id number] QRSd 87 QRS 95 QT 379 T -31 QTc 451 Conclusion limited interp 2/t baseline artifact no STEMI
[2024-04-30 23:50] VITALS: RESP 23
[2024-05-01] VITALS (57 sets, daily range): BP systolic 94–156; BP diastolic 42–76; PULSE 68–119; RESP 13–33; TEMP 36–37.4; O2SAT 87–100
[2024-05-01] MEDS: Albuterol/Ipratropium 3 ML UPD VIAL UPD (00:01)
[2024-05-01 00:39] LABS: BE (Venous) 8 mmol/L (-2-3); HCO3 (Venous) 33 mmol/L (23-28); O2 Sat (Venous) 43 %; TCO2 (Venous) 29 mmol/L (24-29); pCO2 (Venous) 54 mmHg (41-51); pH (Venous) 7.39 (7.31-7.41); pO2 (Venous) 28 mmHg
[2024-05-01 00:43] LABS: Abs Immature Grans 0.05 10^3/uL (0.0-0.06); Absolute Basophil Count 0.03 10^3/uL (0.0-0.2); Absolute Eosinophil Count 0.16 10^3/uL (0.0-0.7); Absolute Lymphocyte Count 2.03 10^3/uL (1.2-3.4); Absolute Monocyte Count 0.25 10^3/uL (0.1-0.8); Absolute Neutrophil Count 5.12 10^3/uL (1.2-6.7); Basophils % 0.4 %; Eosinophils % 2.1 %; HCT 46.5 % (36.0-46.0); HGB 14.5 g/dL (11.2-15.7); Immature Grans % 0.7 %; Lymphocytes % 26.6 %; MCH 27.1 pg (27.0-33.0); MCHC 31.2 % (32.0-36.0); MCV 87 fL (80-95); MPV 11.8 fL (8.0-11.0); Monocytes % 3.3 %; Neutrophils % 66.9 %; Platelet Count 110 10^3/uL (130-400); RBC 5.36 10^6/uL (3.93-5.22); RDW 14.6 % (11.7-14.6); RDW-SD 45.8 fL; WBC 7.64 10^3/uL (4.4-10.8)
[2024-05-01 00:58] LABS: INR 0.9 (0.9-1.1); PTT Activated 24.3 sec (23.6-32.8); Prothrombin Time 9.3 sec (9.1-11.1)
[2024-05-01 01:09] LABS: ALT 14 U/L (14-59); AST 17 U/L (15-37); Albumin 3.1 g/dL (3.4-5.0); Alkaline Phosphatase 125 U/L (46-116); Anion Gap 10.4 mmol/L (3-11); BUN 8 mg/dL (7-18); Bilirubin, Total 0.35 mg/dL (0.2-1.0); CO2 31.6 mmol/L (21.0-32.0); CREATININE 0.8 mg/dL (0.55-1.02); Chloride 105 mmol/L (98-107); Estimated GFR 82.74 (mL/min/1.73m2); Glucose 103 mg/dL (74-106); Magnesium 1.5 mg/dL (1.8-2.4); NT-proBNP 366 pg/mL (<300); Sodium 147 mmol/L (136-145); Total Protein 7.3 g/dL (6.4-8.2); Troponin I 8 ng/L (<or=51)
[2024-05-01 01:12] LABS: D-Dimer 697 ng/mlFEU (<500); Potassium 2.8 mmol/L (3.5-5.1)
--- NOTE | 2024-05-01 01:15 | DI.CT_ITS ---
Exam(s) CT CHEST PE CTA EXAM: CT CHEST PE CTA CLINICAL HISTORY: SOB, elevated dimer. TECHNIQUE: Imaging Protocol: Axial CT angiography was performed with multi-slice acquisition and mu lti-planar reconstructions as well as axial, coronal and sagittal MIP reconstructions. Computer aided detection (CAD) was utilized. CONTRAST MATERIAL: Intravenous: Omnipaque 350 Contrast volume:100 ml COMPARISON: CT CT CHEST PE ABD PELVIS W from 01/31/2023 CR,XR XR CHEST 2V PA LATERAL from 05/01/2024 FINDINGS: Pulmonary Arteries: No evidence of filling defect to suggest pulmonary emboli. Mediastinum and Lesli: No dominant adenopathy. Small hiatal hernia. Significant distention of the up per to mid esophagus with fluid. Finding similar to prior exams. Pulmonary parenchyma: Bilateral pneumonia, greater in the lower lobes, left greater than right. Pleura: No effusion or pneumothorax. Heart: The heart is not dilated. No coronary artery calcifications are seen. Aorta: Thoracic aorta non-dilated. No dissection. Upper abdomen: G-tube in position. Bones: Unremarkable for age. Soft tissues: Gastrostomy tube in position. IMPRESSION: No evidence of pulmonary embolism. Multifocal bilateral pneumonia, greater in the lower lobes. Chronic finding of marked dilatation of the upper esophagus containing fluid. RADIATION DOSE DELIVERED: 73.53mGy.cm Total DLP DATA REPOSITORY: All CT scans at this facility are submitted to the National Radiology Data Registry (NRDR) Dose Index Registry (DIR) with the [employer] (A[employer]). RADIATION OPTIMIZATION: All CT scans at this facility use at least one of these dose optimization te chniques: automated exposure control; mA and/or kV adjustment per patient size (includes targeted exa ms where dose is matched to clinical indication); or iterative reconstruction.
[2024-05-01 01:28] LABS: COVID-19 PCR Negative (Negative); Influenza A PCR Negative (Negative); Influenza B PCR Negative (Negative); RSV PCR Negative (Negative)
[2024-05-01 01:30] LABS: Source Nasopharynx
[2024-05-01 01:45] LABS: Potassium 2.7 mmol/L (3.5-5.1)
[2024-05-01 01:53] LABS: Troponin I 4 ng/L (<or=51)
[2024-05-01] MEDS: Omnipaque 350 MG/ML 100 ML BTL IJ (02:18)
[2024-05-01] MEDS: Normal Saline - Diluent 50 ML VIAL IJ (02:19)
[2024-05-01] MEDS: Normal Saline Flush 10 ML SYR IVP ×3 (02:19→22:02)
[2024-05-01] MEDS: POTASSIUM CHLORIDE 20 MEQ/100 ML BAG 50 MEQ IV_INF ×2 (02:30→10:54)
[2024-05-01] MEDS: Potassium Chloride Liquid 20 MEQ PKT 40 MEQ PO (02:30)
--- NOTE | 2024-05-01 02:35 | DI.VRAD_ITS ---
PROCEDURE INFORMATION: Exam: XR Chest Exam date and time: 05/01/2024 12:47 AM Age: 63 years old Clinical indication: Shortness of breath; Patient HX: SOB TECHNIQUE: Imaging protocol: Radiologic exam of the chest. Views: 2 views. COMPARISON: XR PORTABLE CHEST AP 04/19/2024 11:35 PM FINDINGS: Lungs: Subjectively slightly increased opacity in the retrocardiac left lower lobe suspicious for pneumonia/aspiration. Pleural spaces: Unremarkable. No pleural effusion. No pneumothorax. Heart/Mediastinum: Abnormality of the superior middle mediastinum, the configuration of which suggests an air-fluid level in a substantially dilated proximal to mid esophagus, potentially signifying an obstructing mid esophageal mass, gastroesophageal reflux, or achalasia. Recommend chest CT for further evaluation, preferably with IV contrast. Bones/joints: Unremarkable. IMPRESSION: 1. Subjectively slightly increased opacity in the retrocardiac left lower lobe suspicious for pneumonia/aspiration. 2. Abnormality of the superior middle mediastinum, the configuration of which suggests an air-fluid level in a substantially dilated proximal to mid esophagus, potentially signifying an obstructing mid esophageal mass, gastroesophageal reflux, or achalasia. Recommend chest CT for further evaluation, preferably with IV contrast. Dictated and Authenticated by: Tu Gastelum MD. Ordering:MARYCARMEN Gracia MD
--- NOTE | 2024-05-01 03:07 | ED.GENADUL_ITS ---
Discharge Plan Disposition Patient Disposition: Admit to [facility] Condition: Serious Discharge Details Chief Complaint: RespSymp Clinical Impression: Acute and chronic respiratory failure with hypoxia, Aspiration pneumonia, Dilatation of esophagus Primary Care Provider: Ana Gillespie ED Provider: Samia Crawford Home Meds and New Rx's Prescriptions: No Action bupropion HCl 100 mg tablet 300 mg PO DAILY Patient Comments: via g-tube, per pcp ov notes 12/09/22 RH protein Powder See Rx Instructions PO .COMPLEX Rx Instructions: 2 scoops daily duloxetine [Cymbalta] 20 mg capsule,delayed release(DR/EC) 20 mg PO HS Patient Comments: TAKE 1 CAPSULE PER DAY VIA G-TUBE IN THE EVENING duloxetine [Cymbalta] 60 mg capsule,delayed release(DR/EC) 60 mg PO DAILY sacubitril-valsartan [Entresto] 24-26 mg tablet 1 tab feeding tube BID Patient Comments: via g-tube Jardiance 10 mg tablet 10 mg PO DAILY atorvastatin 80 mg tablet 80 mg PO DAILY valproic acid (as sodium salt) 250 mg/5 mL solution 300 mg PO TID Rx Instructions: 6mls TID metoprolol succinate 50 mg tablet extended release 24 hr 25 mg PO BID sucralfate 1 gram tablet 1 g PO QID Patient Comments: TAKE ONE TABLET BY MOUTH FOUR TIMES A DAY folic acid 1 mg Tablet 1 mg PO DAILY Qty: 0 0RF ferrous sulfate 300 mg (60 mg iron)/5 mL liquid 300 mg feeding tube .QOD Patient Comments: TAKE 5ML VIA G-TUBE EVERY OTHER DAY Humulin N NPH Insulin KwikPen 100 unit/mL (3 mL) insulin pen See Rx Instructions .ROUTE .COMPLEX Qty: 0 0RF Rx Instructions: 20 units at 11 am followed by sliding scale at 3 pm (5 units for blood sugar of 250 plus 1 additional unit for any 20 points that the blood sugar is above 250) ibuprofen 100 mg/5 mL suspension 600 mg PO Q8H PRN guaifenesin 200 mg/5 mL liquid 200 mg feeding tube Q4H PRNQty: 118 0RF aspirin 81 mg tablet,chewable 81 mg feeding tube DAILY Qty: 30 0RF acetaminophen 500 mg/15 mL liquid 1,000 mg PO Q8H PRNQty: 237 2RF nystatin 100,000 unit/gram powder 1 applic TOPICAL TID PRN Patient Comments: APPLY TO BUTTOCKS THREE TIMES A DAY NEEDED pantoprazole [address] for susp in packet 40 mg G-tube DAILY Patient Comments: Take 1 packet via g-tube twice a day Administer in 10 mL of apple juice via g-tub, then follow with another 10 mL. nystatin 100,000 unit/gram cream 1 applic TOPICAL TID PRN Patient Comments: APPLY A SMALL AMOUNT TO AFFECTED AREA(S) ON BUTTOCKS THREE TIMES A DAY NEEDED melatonin 3 mg tablet 9 mg feeding tube HS Patient Comments: TAKE THREE TABLETS VIA G-TUBE EVERY NIGHT DIRECTED insulin glargine [Lantus Solostar U-100 Insulin] 100 unit/mL (3 mL) insulin pen 10 unit SUBCUT QPM Patient Comments: INJECT 10 UNITS UNDER THE SKIN NIGHTLY DIRECTED ondansetron HCl 4 mg tablet 8 mg feeding tube Q8H PRN Patient Comments: TAKE ONE TABLET VIA G-TUBE EVERY 8 HOURS NEEDED quetiapine 100 mg tablet 100 mg PO HS Qty: 0 0RF nystatin 100,000 unit/gram ointment 1 applic TOPICAL BID Patient Comments: APPLY TO AFFECTED AREA(S) TWO TIMES A DAY prednisone 20 mg Tablet 40 mg feeding tube DAILY Qty: 10 0RF albuterol sulfate 90 mcg/actuation HFA aerosol inhaler 2 puff inhalation 6XD PRNQty: 8.5 0RF (DME) Space Chamber Spacer See Rx Instructions .Route Qty: 1 0RF Rx Instructions: As directed doxycycline hyclate 100 mg Capsule 100 mg feeding tube BID Qty: 7 0RF cefpodoxime 200 mg tablet 200 mg PO BID Qty: 10 0RF Rx Instructions: must administer with a meal/food HPI General Mode of arrival: ambulatory . Date/Time Provider Initiated Documentation: 05/01/24 01:10 . Limitations to Documentation: no limitations . Information obtained by: patient . HPI Narrative: 63yo F with hx COPD, CHF, T2DM, diego's esophagus with esophageal stricture wi th feeding tube present, presenting for shortness of breath. Recently admitted to the hospital for COPD exacerbation, discharged on 04/21 on 7 day course of doxycyline and cefpodoxime. Reports that this evening she began to felt short of breath, came on suddenly while getting ready for bed. No significant exertion at onset. No chest pain, lightheadedness, or syncope. No fevers, chills, cough, rhinnorhea. Did vomit earlier today as well as once yesterday; reports this is fairly typical for her and she attributes it to her esophageal stricture. Used a duoneb at home and was given a 2nd duoneb from EMS with no change in her symptoms. Feels like she can't take a full breath. No pain with deep inspiration. She is otherwise in her usual state of health and felt well earlier in the day prior to the onset of symptoms. Related Data Home Medications ?Medication ?Instructions ?Recorded ?Confirmed sucralfate 1 gram tablet 1 g PO QID 08/08/22 05/01/24 folic acid 1 mg tablet 1 mg PO DAILY #0 tabs 08/10/22 05/01/24 atorvastatin 80 mg tablet 80 mg PO DAILY 11/18/22 05/01/24 empagliflozin 10 mg tablet 10 mg PO DAILY 11/18/22 05/01/24 (Jardiance) metoprolol succinate 50 mg 25 mg PO BID 11/18/22 05/01/24 tablet,extended release 24 hr sacubitril 24 mg-valsartan 26 mg 1 tab feeding tube BID 11/18/22 05/01/24 tablet (Entresto) valproic acid (as sodium salt) 250 300 mg PO TID 11/18/22 05/01/24 mg/5 mL oral solution bupropion HCl 100 mg tablet 300 mg PO DAILY 12/16/22 05/01/24 protein See Rx Instructions PO .COMPLEX 12/16/22 05/01/24 acetaminophen 500 mg/15 mL oral 1,000 mg (30 mL) PO Q8H PRN #237 mL 01/19/23 05/01/24 liquid ferrous sulfate 300 mg (60 mg 300 mg feeding tube .QOD 01/31/23 05/01/24 iron)/5 mL oral liquid insulin NPH isoph U-100 human 100 See Rx Instructions .Route 02/28/23 05/01/24 unit/mL (3 mL) subcutaneous pen .COMPLEX #0 mL (Humulin N NPH U-100 Insulin KwikPen) ibuprofen 100 mg/5 mL oral 600 mg PO Q8H PRN 04/04/23 05/01/24 suspension nystatin 100,000 unit/gram topical 1 applic topical TID PRN 05/03/23 05/01/24 cream nystatin 100,000 unit/gram topical 1 applic topical TID PRN 05/03/23 05/01/24 powder pantoprazole 40 mg granules 40 mg G-tube DAILY 05/03/23 05/01/24 delayed-release for susp in packet insulin glargine 100 unit/mL (3 10 unit subcut QPM 05/04/23 05/01/24 mL) subcutaneous pen (Lantus Solostar U-100 Insulin) melatonin 3 mg tablet 9 mg feeding tube HS 05/04/23 05/01/24 ondansetron HCl 4 mg tablet 8 mg feeding tube Q8H PRN 05/08/23 05/01/24 aspirin 81 mg chewable tablet 81 mg feeding tube DAILY #30 tabs 07/05/23 05/01/24 guaifenesin 200 mg/5 mL oral liquid 200 mg (5 mL) feeding tube Q4H PRN 07/05/23 05/01/24 #118 mL duloxetine 20 mg capsule,delayed 20 mg PO HS 01/24/24 05/01/24 release (Cymbalta) duloxetine 60 mg capsule,delayed 60 mg PO DAILY 01/24/24 05/01/24 release (Cymbalta) quetiapine 100 mg tablet 100 mg PO HS #0 tabs 03/11/24 05/01/24 nystatin 100,000 unit/gram topical 1 applic topical BID 04/19/24 05/01/24 ointment albuterol sulfate 90 mcg/actuation 2 puff inhalation 6XD PRN #8.5 04/21/24 05/01/24 aerosol inhaler grams cefpodoxime 200 mg tablet 200 mg PO BID #10 tabs 04/21/24 05/01/24 doxycycline hyclate 100 mg capsule 100 mg feeding tube BID #7 caps 04/21/24 05/01/24 inhalational spacing device (Space #1 ea 04/21/24 05/01/24 Chamber) prednisone 20 mg tablet 40 mg (2 x 20 mg) feeding tube 04/21/24 05/01/24 DAILY #10 tabs Previous Rx's ?Medication ?Instructions ?Recorded folic acid 1 mg tablet 1 mg PO DAILY #0 tabs 08/10/22 acetaminophen 500 mg/15 mL oral 1,000 mg (30 mL) PO Q8H PRN #237 mL 01/19/23 liquid insulin NPH isoph U-100 human 100 See Rx Instructions .Route 02/28/23 unit/mL (3 mL) subcutaneous pen .COMPLEX #0 mL (Humulin N NPH U-100 Insulin KwikPen) aspirin 81 mg chewable tablet 81 mg feeding tube DAILY #30 tabs 07/05/23 guaifenesin 200 mg/5 mL oral liquid 200 mg (5 mL) feeding tube Q4H PRN 07/05/23 #118 mL quetiapine 100 mg tablet 100 mg PO HS #0 tabs 03/11/24 albuterol sulfate 90 mcg/actuation 2 puff inhalation 6XD PRN #8.5 04/21/24 aerosol inhaler grams cefpodoxime 200 mg tablet 200 mg PO BID #10 tabs 04/21/24 doxycycline hyclate 100 mg capsule 100 mg feeding tube BID #7 caps 04/21/24 inhalational spacing device (Space #1 ea 04/21/24 Chamber) prednisone 20 mg tablet 40 mg (2 x 20 mg) feeding tube 04/21/24 DAILY #10 tabs Allergies Allergy/AdvReac Type Severity Reaction Status Date / Time metformin AdvReac Unknown Diarrhea Verified 04/30/24 23:40 meperidine AdvReac gi upset Verified 04/30/24 23:40 General Stated Complaint: RespSymp ASHANTI: 3 Review of Systems Narrative: see HPI Exam Narrative Exam Narrative: General: Alert, well appearing, well nourished, in no acute distress. Head: Normocephalic, atraumatic Neck: Trachea midline, ?Neck supple. ENT: ?MMM.? Cardiac: ?RRR, no murmurs appreciated Resp: No respiratory distress. CTAB. Abd: ?Soft, non-distended, nontender : ?No suprapubic tenderness. Extremities: ?No deformities.? No peripheral edema. Neurologic: GCS 15. ? Moves all extremities freely against gravity Course Vital Signs Vital signs: Vital Signs Temperature 36.1 C L 04/30/24 23:41 Pulse 90 04/30/24 23:41 Respiratory Rate 20 04/30/24 23:41 Blood Pressure 133/107 H 04/30/24 23:41 Pulse Oximetry 98 04/30/24 23:41 Temperature 36.1 C L 12/22/24 23:41 Temperature Source Temporal Artery Scan 04/30/24 23:41 Pulse 87 05/01/24 00:32 Pulse 87 05/01/24 00:32 Respiratory Rate 15 05/01/24 00:32 Respiratory Effort Short of Breath 05/01/24 01:35 Respiratory Depth Normal 05/01/24 01:35 Blood Pressure 120/54 L 05/01/24 00:32 Blood Pressure Mean 78 05/01/24 00:32 Blood Pressure Position Supine 04/30/24 23:41 Pulse Oximetry 100 05/01/24 00:32 Oxygen Delivery Method Aerosol Mask 04/30/24 23:41 Oxygen Flow Rate 6 04/30/24 23:41 Lab/Test Results Lab/Test Results: Laboratory Tests Range/Units 05/01/24 05/01/24 00:25 01:30 WBC (4.4-10.8) 10^3/uL 7.64 RBC (3.93-5.22) 10^6/uL 5.36 H Hgb (11.2-15.7) g/dL 14.5 Hct (36.0-46.0) % 46.5 H MCV (80-95) fL 87 MCH (27.0-33.0) pg 27.1 MCHC (32.0-36.0) % 31.2 L RDW (11.7-14.6) % 14.6 Plt Count (130-400) 10^3/uL 110 L MPV (8.0-11.0) fL 11.8 H Immature Gran % % 0.7 Neutrophils % % 66.9 Lymphocytes % % 26.6 Monocytes % % 3.3 Eosinophils % % 2.1 Basophils % % 0.4 Nucleated RBC % (0.0-0.3) % 0.0 Absolute Neutrophils (1.2-6.7) 10^3/uL 5.12 Absolute Lymphocytes (1.2-3.4) 10^3/uL 2.03 Absolute Monocytes (0.1-0.8) 10^3/uL 0.25 Absolute Eosinophils (0.0-0.7) 10^3/uL 0.16 Absolute Basophils (0.0-0.2) 10^3/uL 0.03 PT (9.1-11.1) sec 9.3 INR (0.9-1.1) 0.9 APTT (23.6-32.8) sec 24.3 D-Dimer (<500) ng/mlFEU 697 H VBG pH (7.31-7.41) 7.39 VBG pCO2 (41-51) mmHg 54 H VBG pO2 mmHg 28 VBG HCO3 (23-28) mmol/L 33 H VBG Total CO2 (24-29) mmol/L 29 VBG O2 Saturation % 43 VBG Base Excess (-2-3) mmol/L 8 H Sodium (136-145) mmol/L 147 H Potassium (3.5-5.1) mmol/L 2.8 L* 2.7 L* Chloride (98-107) mmol/L 105 Carbon Dioxide (21.0-32.0) mmol/L 31.6 Anion Gap (3-11) mmol/L 10.4 BUN (7-18) mg/dL 8 Creatinine (0.55-1.02) mg/dL 0.8 Est GFR (CKD-EPI 2020) (mL/min/1.73m2) 82.74 Glucose (74-106) mg/dL 103 Calcium (8.5-10.1) mg/dL 10.0 Magnesium (1.8-2.4) mg/dL 1.5 L Total Bilirubin (0.2-1.0) mg/dL 0.35 AST (15-37) U/L 17 ALT (14-59) U/L 14 Alkaline Phosphatase (46-116) U/L 125 H Troponin I (<or=51) ng/L 8 4 NT-Pro-B Natriuret Pep (<300) pg/mL 366 H Total Protein (6.4-8.2) g/dL 7.3 Albumin (3.4-5.0) g/dL 3.1 L COVID-19 Source Nasopharynx SARS-CoV-2 (PCR) (Negative) Negative Influenza Type A (PCR) (Negative) Negative Influenza Type B (PCR) (Negative) Negative RSV (PCR) (Negative) Negative Medical Decision Making 63yo F with hx COPD, CHF, T2DM, diego's esophagus with esophageal stricture with feeding tube present, presenting for shortness of breath. Recently admitted to the hospital for COPD excerbation, discharged on 04/21 on 7 day course of doxycyline and cefpodoxime. Shortness of breath re-occurred this evening acutely; no chest pain or other associated symptoms. Did vomit today and yesterday which she states is not unusual for her and attributes to her stricture, otherwise she is in her usual state of health. Duoneb at home and one duoneb from EMS prior to arrival. Vital signs reassuring on arrival, O2 sat 95+% on 6L O2 (does wear 2L NC at home at night only). No respiratory distress on exam. -EKG SR, borderline prolonged QT, limited interp 2/t baseline artificact however within limits to ST segment or T wave abnormalities to suggest occlusive NH. Repeat performed and though still limited interp of lead I again without suggestion of occlusive NH. -CBC reassuring with no leukocytosis or anemia 9does have mild thrombocytopenia at 110). CMP with marked hypokalemia, K of 2.8 (rechecked to verify and was 2.7); she has had three duonebs which may be contributing however K on 04/21 was 4.5 and this is a larger drop than I would expect. Will replete 40meQ PO and 20meQ IV. Mg slightly low at 1.5, oral replacement ordered. -VBG reassuring with normal pH and mild compensated respiratory acidosis consistent with known COPD. -PT & PTT normal; dimer elevated and CTA for PE ordered. -Troponin normal, one hour delta reassuring, would not further pursue ACS. BNP mildly elevated at 366, not consistent with CHF exacerbation. -Respiratory viral swab negative. CXR independently reviewed; agree with radiology read below with LLL opacity increased since most recent prior CXR. CTA independently reviewed; diffuse bilateral pulmonary infiltrate on my view as well as distension of proximal esophagus with air/fluid level, agree with radiology read below. Started on amp-sulfabactam. Weaned O2, requires 2L NC to keep sat >92%. On room air continues to desat to mid 80's while awake. Discussed with [facility] hospitalist Dr. Denney; pt accepted to medicine service for further workup and managment. Awaiting transfer to the floor. Imaging Data Radiologic Study: Radiologist's impression: CXR: IMPRESSION: 1. Subjectively slightly increased opacity in the retrocardiac left lower lobe suspicious for pneumonia/aspiration. 2. Abnormality of the superior middle mediastinum, the configuration of which suggests an air-fluid level in a substantially dilated proximal to mid esophagus, potentially signifying an obstructing mid esophageal mass, gastroesophageal reflux, or achalasia. Recommend chest CT for further evaluation, preferably with IV contrast. CT: IMPRESSION: 1. There is extensive bilateral bronchopneumonia and infectious bronchiolitis with a lower lung/posterior predominance, likely aspiration. 2. Small hiatal hernia. Substantial distension of the proximal to mid esophagus up to 5 cm in caliber with fluid and a small amount of nondependent gas. There is a transition point at the mid esophagus where there is a short-segment of diffusely thickened and inflamed esophageal wall, compatible with esophagitis. There is no discernible obstructing mass or impacted food/foreign body. No discernible mass. It should be noted though that study was performed as a CTA in arterial phase contrast which limits definition of the esophageal anatomy and stricture, neoplasm, or ingested body cannot be absolutely excluded. Lab Data Lab results reviewed: Yes I reviewed the patient's lab results. Labs: Laboratory Tests Range/Units 05/01/24 05/01/24 00:25 01:30 WBC (4.4-10.8) 10^3/uL 7.64 RBC (3.93-5.22) 10^6/uL 5.36 H Hgb (11.2-15.7) g/dL 14.5 Hct (36.0-46.0) % 46.5 H MCV (80-95) fL 87 MCH (27.0-33.0) pg 27.1 MCHC (32.0-36.0) % 31.2 L RDW (11.7-14.6) % 14.6 Plt Count (130-400) 10^3/uL 110 L MPV (8.0-11.0) fL 11.8 H Immature Gran % % 0.7 Neutrophils % % 66.9 Lymphocytes % % 26.6 Monocytes % % 3.3 Eosinophils % % 2.1 Basophils % % 0.4 Nucleated RBC % (0.0-0.3) % 0.0 Absolute Neutrophils (1.2-6.7) 10^3/uL 5.12 Absolute Lymphocytes (1.2-3.4) 10^3/uL 2.03 Absolute Monocytes (0.1-0.8) 10^3/uL 0.25 Absolute Eosinophils (0.0-0.7) 10^3/uL 0.16 Absolute Basophils (0.0-0.2) 10^3/uL 0.03 PT (9.1-11.1) sec 9.3 INR (0.9-1.1) 0.9 APTT (23.6-32.8) sec 24.3 D-Dimer (<500) ng/mlFEU 697 H VBG pH (7.31-7.41) 7.39 VBG pCO2 (41-51) mmHg 54 H VBG pO2 mmHg 28 VBG HCO3 (23-28) mmol/L 33 H VBG Total CO2 (24-29) mmol/L 29 VBG O2 Saturation % 43 VBG Base Excess (-2-3) mmol/L 8 H Sodium (136-145) mmol/L 147 H Potassium (3.5-5.1) mmol/L 2.8 L* 2.7 L* Chloride (98-107) mmol/L 105 Carbon Dioxide (21.0-32.0) mmol/L 31.6 Anion Gap (3-11) mmol/L 10.4 BUN (7-18) mg/dL 8 Creatinine (0.55-1.02) mg/dL 0.8 Est GFR (CKD-EPI 2020) (mL/min/1.73m2) 82.74 Glucose (74-106) mg/dL 103 Calcium (8.5-10.1) mg/dL 10.0 Magnesium (1.8-2.4) mg/dL 1.5 L Total Bilirubin (0.2-1.0) mg/dL 0.35 AST (15-37) U/L 17 ALT (14-59) U/L 14 Alkaline Phosphatase (46-116) U/L 125 H Troponin I (<or=51) ng/L 8 4 NT-Pro-B Natriuret Pep (<300) pg/mL 366 H Total Protein (6.4-8.2) g/dL 7.3 Albumin (3.4-5.0) g/dL 3.1 L COVID-19 Source Nasopharynx SARS-CoV-2 (PCR) (Negative) Negative Influenza Type A (PCR) (Negative) Negative Influenza Type B (PCR) (Negative) Negative RSV (PCR) (Negative) Negative Quality:SDOH Health Related Social Needs: No Data to Display PFSH All Active Problems Dilatation of esophagus (Acute) Aspiration pneumonia (Acute) Acute and chronic respiratory failure with hypoxia (Acute) Hypomagnesemia (Acute) COPD exacerbation (Acute) Acute hypoxic respiratory failure (Acute) Acute blood loss anemia (Acute) History of total right hip replacement (Acute 03/01/24) As treatment for R femoral neck fracture Medical History COPD (chronic obstructive pulmonary disease) with acute bronchitis Insulin dependent type 2 diabetes mellitus HFrEF (heart failure with reduced ejection fraction) Pre-op evaluation Abnormal chest xray H/O: pneumonia Anemia Drug-induced parkinsonism Neuroleptic induced parkinsonism Tubular adenoma (~06/10/21) Hyperplastic colon polyp (~06/10/21) Farrell's 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 Erosive esophagitis Esophageal ulcer with bleeding Farrell's esophagus Chronic diarrhea Black tarry stools Pleural effusion Leukocytosis Ventral hernia Cholelithiasis Atrial flutter Diabetes Bipolar 1 disorder Depression COVID Acute respiratory failure with hypoxia Acute on chronic respiratory failure with hypoxia Lab test positive for detection of COVID-19 virus Gastrostomy tube obstruction Aspiration pneumonia Pneumonitis Acute respiratory failure with hypoxia and hypercarbia Myocardial injury COPD with acute exacerbation NSTEMI (non-ST elevated myocardial infarction) Per pt. states she did not have a heart attack Bronchiolitis Acute on chronic respiratory failure with hypoxia and hypercapnia Hypotension Vitamin D deficiency Esophageal stricture Chronic systolic (congestive) heart failure Aspiration pneumonia Stress-induced cardiomyopathy acute onset managed at [facility] 08/30 pressors, EF 25%, has since recovered RH Acute cardiogenic pulmonary edema Acute metabolic encephalopathy Bilateral pneumonia Hypokalemia Closed fracture of neck of left femur s/p Percutaneous Screw Fixation 08/09/22 Constipation Diabetes mellitus type 2 in obese Chronic iron deficiency anemia ETOH abuse Poorly controlled diabetes mellitus Chronic pancreatitis due to acute alcohol intoxication Alcohol abuse Per pt. states she has never had an issues with any subtances History of pilonidal cyst Anxiety Surgical History PEG (percutaneous endoscopic gastrostomy) status Status post hip surgery History of total left hip arthroplasty (01/19/23) S/P laparoscopic procedure cyst removed from stomach per patient S/P surgical removal of pilonidal cyst History of esophagogastroduodenoscopy (EGD) (~06/10/21) History of colonoscopy with polypectomy (~06/10/21) History of hysterectomy History of tonsillectomy History of section Family History Father Hypertension Diabetes Heart disease Social History Smoking/Tobacco Use Status: Never Smoking risk assessment performed?: Yes Alcohol Intake: never Drug use: Never Substance use type: does not use Household members: spouse Housing: apartment Number of Children: 2 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
[2024-05-01] MEDS: Magnesium Gluconate 500 MG TAB 1000 MG PO (03:16)
--- NOTE | 2024-05-01 03:53 | DI.VRAD_ITS ---
PROCEDURE INFORMATION: Exam: CTA Chest With Contrast Exam date and time: 05/01/2024 2:58 AM Age: 63 years old Clinical indication: Abnormal findings; Abnormal diagnostic tests; Shortness of breath; Patient HX: SOB, elevated d-dimer TECHNIQUE: Imaging protocol: Computed tomographic angiography of the chest with contrast. Exam focused on the arteries. 3D rendering (Not supervised by radiologist): MIP and/or 3D reconstructed images were created by the technologist. Radiation optimization: All CT scans at this facility use at least one of these dose optimization techniques: automated exposure control; mA and/or kV adjustment per patient size (includes targeted exams where dose is matched to clinical indication); or iterative reconstruction. Contrast material: OMNIPAQUE 350; Contrast volume: 75 ml; Contrast route: INTRAVENOUS (IV); COMPARISON: CT CHEST PE ABD PELVIS W 01/31/2023 10:04 PM FINDINGS: Tubes, catheters and devices: Percutaneous G-tube in place, appears adequately positioned. Entry site is unremarkable. Pulmonary arteries: Normal. No pulmonary emboli. Aorta: Unremarkable. No aortic aneurysm. No aortic dissection. Lungs: There is extensive bilateral bronchopneumonia and infectious bronchiolitis with a lower lung/posterior predominance, likely aspiration. Pleural spaces: Unremarkable. No pneumothorax. No pleural effusion. Heart: Unremarkable. No pericardial effusion. Esophagus: See Diaphragm finding. Lymph nodes: Unremarkable. No enlarged lymph nodes. Diaphragm: Small hiatal hernia. Substantial distension of the proximal to mid esophagus up to 5 cm in caliber with fluid and a small amount of nondependent gas. There is a transition point at the mid esophagus where there is a short-segment of diffusely thickened and inflamed esophageal wall, compatible with esophagitis. There is no discernible obstructing mass or impacted food/foreign body. No discernible mass. It should be noted though that study was performed as a CTA in arterial phase contrast which limits definition of the esophageal anatomy and stricture, neoplasm, or ingested body cannot be absolutely excluded. Bones/joints: Unremarkable. No acute fracture. Soft tissues: Unremarkable. IMPRESSION: 1. There is extensive bilateral bronchopneumonia and infectious bronchiolitis with a lower lung/posterior predominance, likely aspiration. 2. Small hiatal hernia. Substantial distension of the proximal to mid esophagus up to 5 cm in caliber with fluid and a small amount of nondependent gas. There is a transition point at the mid esophagus where there is a short-segment of diffusely thickened and inflamed esophageal wall, compatible with esophagitis. There is no discernible obstructing mass or impacted food/foreign body. No discernible mass. It should be noted though that study was performed as a CTA in arterial phase contrast which limits definition of the esophageal anatomy and stricture, neoplasm, or ingested body cannot be absolutely excluded. Dictated and Authenticated by: Tu Gastelum MD. Ordering:MARYCARMEN Gracia MD
--- NOTE | 2024-05-01 04:35 | W.PM.HP.N ---
Date of service: 05/01/24 Time of Service: 04:35 Assessment and Plan Assessment and plan (1) Aspiration pneumonia: Start date: 05/01/24 Assessment and plan: This is a 63-year-old lady who has recurrent aspiration with esophageal stricture and basically is attempting not to take anything by mouth at home. She does swallow her saliva it appears she has a nonoperable esophageal stricture and is taking all of her medications as well as nutrition through her feeding tube. She states that [facility] wants her to lose weight and history of CHF and diabetes which is usually controlled with an outpatient. She is chronically on oxygen at home but only at night at 2 L/min per nasal cannula. She presented to the ED with increased dyspnea and increased oxygen needs. Nasal cannula with expanding infiltrates evaluation. She will be started on Unasyn IV long-term this should be better plan treatment of this patient with recurrent aspiration initiated and possibly not correctable. Palliative care was once again consulted. At this time is a full code. (2) Acute on chronic respiratory failure with hypoxia and hypercapnia: Start date: 05/01/24 Assessment and plan: O2 supplementation as needed and to treat aspiration pneumonia along with aggressive nebulizer treatments for respiratory toilet. At the time my exam the patient apparently flared. This is a chronic but progressive condition which appears to not be correctable. (3) COPD exacerbation: Start date: 05/01/24 Status: Acute Assessment and plan: Aggressive nebulizer treatments with IV Solu-Medrol the patient having prednisone treatment quite. (4) Hypomagnesemia: Start date: 05/01/24 Status: Acute Assessment and plan: Replete with 2 g of magnesium sulfate IV and consider chronic oral supplementation or least increase magnesium and feedings if needed. Patient is not on chronic diuretics. (5) Hypokalemia: Start date: 05/01/24 Assessment and plan: Recurrent with CHF but not on chronic diuretic therapy. She is on Entresto. She is not on chronic potassium supplement. This appears to be associate with occasional hypomagnesemia and may be nutritional. (6) HFrEF (heart failure with reduced ejection fraction): Assessment and plan: Continue outpatient medical therapy as tolerated. Follow-up with cardiology. There appears to be no acute decompensation (7) Esophageal stricture: Assessment and plan: Chronic with no surgical options for correction. Follow-up [facility]. (8) Depression: Assessment and plan: Continue outpatient medical therapy as tolerated. Some this may be situational depression. Patient appears to have poor insight and avoidance of long-term discussion limited medical options with her present medical situation causing recurrent aspiration. History of Present Illness History of Present Illness Chief Complaint: Increasing dyspnea with increased oxygen needs. Narrative: This is a 63-year-old female patient who has frequent hospitalizations for aspiration pneumonia just been discharged in mid April 2024 on oral course to complete treatment of pneumonia with cefpodoxime and doxycycline. She just finished his course of antibiotics. She presents again with similar complaints dyspnea upon exertion while getting ready for bed with increased oxygen needs at home usually being on only 2 L/m only at night. She eats very little at home because of aspiration having an esophageal stricture which has not correctable. She does have a chronic feeding tube where she receives her nutrition but she is losing weight stating that her physicians at [facility] want her to lose weight. She has a history of CHF and COPD and with presentation to the ED this morning after she was trying to get ready for bed with increased shortness of breath. She had increased wheezing which responded to multiple DuoNeb treatments in the ED. At the time I saw the patient, she was breathing more comfortably at rest but was tachypneic on moving from wheelchair to bed. She was not completing sentences until she rested and was examined in bed. She was on continuous oxygen supplement via nasal cannula having been up to 6 L/min ED. She is requiring less presently. She denies any cough. She has had no chills or fever. She does chronic intermittent have vomiting and vomited twice prior to presentation and this may be when she aspirates. In the ED, patient was afebrile with a normal WBC and was found to have worsening infiltrates over her left lung field and was admitted with acute on chronic hypoxic and hypercapnic respiratory failure with recurrent aspiration. She was started on Unasyn will be continued. She has a at home who is disabled and not helping her though she states she does not have to take care of him. She has recurrent hospitalizations for the same problem which needs to be evaluated by palliative care with a long-term plan possibly different than her present plan. She is a full code. Review of Systems Narrative: 13 point review of systems otherwise unrevealing or stable. Patient denies any hemoptysis or productive sputum with cough. She has had no hematemesis. She has been losing weight stated this has been purposeful with decreased calorie intake but also she had send recurrent lung infections with pneumonia and does appear to have chronic inflammation in the lungs. PFSH All Active Problems Dilatation of esophagus (Acute) Aspiration pneumonia (Acute) Acute and chronic respiratory failure with hypoxia (Acute) Hypomagnesemia (Acute) COPD exacerbation (Acute) Acute hypoxic respiratory failure (Acute) Acute blood loss anemia (Acute) History of total right hip replacement (Acute 03/01/24) As treatment for R femoral neck fracture Medical History COPD (chronic obstructive pulmonary disease) with acute bronchitis Insulin dependent type 2 diabetes mellitus HFrEF (heart failure with reduced ejection fraction) Pre-op evaluation Abnormal chest xray H/O: pneumonia Anemia Drug-induced parkinsonism Neuroleptic induced parkinsonism Tubular adenoma (~06/10/21) Hyperplastic colon polyp (~06/10/21) Farrell's 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 Erosive esophagitis Esophageal ulcer with bleeding Farrell's esophagus Chronic diarrhea Black tarry stools Pleural effusion Leukocytosis Ventral hernia Cholelithiasis Atrial flutter Diabetes Bipolar 1 disorder Depression COVID Acute respiratory failure with hypoxia Acute on chronic respiratory failure with hypoxia Lab test positive for detection of COVID-19 virus Gastrostomy tube obstruction Aspiration pneumonia Pneumonitis Acute respiratory failure with hypoxia and hypercarbia Myocardial injury COPD with acute exacerbation NSTEMI (non-ST elevated myocardial infarction) Per pt. states she did not have a heart attack Bronchiolitis Acute on chronic respiratory failure with hypoxia and hypercapnia Hypotension Vitamin D deficiency Esophageal stricture Chronic systolic (congestive) heart failure Aspiration pneumonia Stress-induced cardiomyopathy acute onset managed at [facility] 08/30 pressors, EF 25%, has since recovered RH Acute cardiogenic pulmonary edema Acute metabolic encephalopathy Bilateral pneumonia Hypokalemia Closed fracture of neck of left femur s/p Percutaneous Screw Fixation 08/09/22 Constipation Diabetes mellitus type 2 in obese Chronic iron deficiency anemia ETOH abuse Poorly controlled diabetes mellitus Chronic pancreatitis due to acute alcohol intoxication Alcohol abuse Per pt. states she has never had an issues with any subtances History of pilonidal cyst Anxiety Surgical History PEG (percutaneous endoscopic gastrostomy) status Status post hip surgery History of total left hip arthroplasty (01/19/23) S/P laparoscopic procedure cyst removed from stomach per patient S/P surgical removal of pilonidal cyst History of esophagogastroduodenoscopy (EGD) (~06/10/21) History of colonoscopy with polypectomy (~06/10/21) History of hysterectomy History of tonsillectomy History of section Family History Father Hypertension Diabetes Heart disease Social History Smoking/Tobacco Use Status: Never Smoking risk assessment performed?: Yes Alcohol Intake: never Drug use: Never Substance use type: does not use Household members: spouse Housing: apartment Number of Children: 2 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 Meds Allergies and Home Medications Allergies Allergy/AdvReac Type Severity Reaction Status Date / Time metformin AdvReac Unknown Diarrhea Verified 04/30/24 23:40 meperidine AdvReac gi upset Verified 04/30/24 23:40 Home Medications ?Medication ?Instructions ?Recorded ?Confirmed ?Type sucralfate 1 gram tablet 1 g PO QID 08/08/22 05/01/24 History folic acid 1 mg tablet 1 mg PO DAILY #0 tabs 08/10/22 05/01/24 Rx atorvastatin 80 mg tablet 80 mg PO DAILY 11/18/22 05/01/24 History empagliflozin 10 mg tablet 10 mg PO DAILY 11/18/22 05/01/24 History (Jardiance) metoprolol succinate 50 mg 25 mg PO BID 11/18/22 05/01/24 History tablet,extended release 24 hr sacubitril 24 mg-valsartan 26 mg 1 tab feeding tube BID 11/18/22 05/01/24 History tablet (Entresto) valproic acid (as sodium salt) 250 300 mg PO TID 11/18/22 05/01/24 History mg/5 mL oral solution bupropion HCl 100 mg tablet 300 mg PO DAILY 12/16/22 05/01/24 History protein See Rx Instructions PO .COMPLEX 12/16/22 05/01/24 History acetaminophen 500 mg/15 mL oral 1,000 mg (30 mL) PO Q8H PRN #237 mL 01/19/23 05/01/24 Rx liquid ferrous sulfate 300 mg (60 mg 300 mg feeding tube .QOD 01/31/23 05/01/24 History iron)/5 mL oral liquid insulin NPH isoph U-100 human 100 See Rx Instructions .Route 02/28/23 05/01/24 Rx unit/mL (3 mL) subcutaneous pen .COMPLEX #0 mL (Humulin N NPH U-100 Insulin KwikPen) ibuprofen 100 mg/5 mL oral 600 mg PO Q8H PRN 04/04/23 05/01/24 History suspension nystatin 100,000 unit/gram topical 1 applic topical TID PRN 05/03/23 05/01/24 History cream nystatin 100,000 unit/gram topical 1 applic topical TID PRN 05/03/23 05/01/24 History powder pantoprazole 40 mg granules 40 mg G-tube DAILY 05/03/23 05/01/24 History delayed-release for susp in packet insulin glargine 100 unit/mL (3 10 unit subcut QPM 05/04/23 05/01/24 History mL) subcutaneous pen (Lantus Solostar U-100 Insulin) melatonin 3 mg tablet 9 mg feeding tube HS 05/04/23 05/01/24 History ondansetron HCl 4 mg tablet 8 mg feeding tube Q8H PRN 05/08/23 05/01/24 History aspirin 81 mg chewable tablet 81 mg feeding tube DAILY #30 tabs 07/05/23 05/01/24 Rx guaifenesin 200 mg/5 mL oral liquid 200 mg (5 mL) feeding tube Q4H PRN 07/05/23 05/01/24 Rx #118 mL duloxetine 20 mg capsule,delayed 20 mg PO HS 01/24/24 05/01/24 History release (Cymbalta) duloxetine 60 mg capsule,delayed 60 mg PO DAILY 01/24/24 05/01/24 History release (Cymbalta) quetiapine 100 mg tablet 100 mg PO HS #0 tabs 03/11/24 05/01/24 Rx nystatin 100,000 unit/gram topical 1 applic topical BID 04/19/24 05/01/24 History ointment albuterol sulfate 90 mcg/actuation 2 puff inhalation 6XD PRN #8.5 04/21/24 05/01/24 Rx aerosol inhaler grams cefpodoxime 200 mg tablet 200 mg PO BID #10 tabs 04/21/24 05/01/24 Rx doxycycline hyclate 100 mg capsule 100 mg feeding tube BID #7 caps 04/21/24 05/01/24 Rx inhalational spacing device (Space #1 ea 04/21/24 05/01/24 Rx Chamber) prednisone 20 mg tablet 40 mg (2 x 20 mg) feeding tube 04/21/24 05/01/24 Rx DAILY #10 tabs Exam Narrative Exam Narrative: General: Patient appears older than stated age, flattened affect but normal eye contact and conversation. Obese. She is alert and oriented x 3 and in no acute distress. Tachypneic with transfer to bed. HEENT: Normocephalic, coarsened facial features, eyes with pupils equal and reactive to light directly, extraocular movement intact and sclera anicteric. Oropharynx with moist mucosa and fair dentition. Neck: Supple without JVD. Back: Kyphotic without CVA tenderness. Lungs: Aeration, clear to auscultation and percussion with no focalizing rales or rhonchi. No expiratory wheeze. Bronchovesicular breath sounds diffusely with no increased expiratory phase at the time of my exam. Breast: Exam deferred. Heart: Normal rate and rhythm, no murmurs or gallops appreciated. Abdomen: Obese contour, soft and nontender to palpation no palpable hepatosplenomegaly. PEG tube is in place with odiferous dressing which was changed and washed. Genitalia/rectal: Exam deferred. Extremities: Chronic, nonpitting edema right leg with well-healed incisional scar right hip, no pitting edema left leg, no cyanosis or clubbing. Good capillary refill. Skin: Pale, warm and dry. Neuro: Cranial nerves II to XII is intact, no focalized motor deficits. No tremor. Psych: Flattened affect with depressed mood. No normal thought processes. Remote and recent memory grossly intact. Results Imaging Imaging Studies: Exam: XR Chest Exam date and time: 05/01/2024 12:47 AM Age: 63 years old Clinical indication: Shortness of breath; Patient HX: SOB TECHNIQUE: Imaging protocol: Radiologic exam of the chest. Views: 2 views. COMPARISON: XR PORTABLE CHEST AP 04/19/2024 11:35 PM FINDINGS: Lungs: Subjectively slightly increased opacity in the retrocardiac left lower lobe suspicious for pneumonia/aspiration. Pleural spaces: Unremarkable. No pleural effusion. No pneumothorax. Heart/Mediastinum: Abnormality of the superior middle mediastinum, the configuration of which suggests an air-fluid level in a substantially dilated proximal to mid esophagus, potentially signifying an obstructing mid esophageal mass, gastroesophageal reflux, or achalasia. Recommend chest CT for further evaluation, preferably with IV contrast. Bones/joints: Unremarkable. IMPRESSION: 1. Subjectively slightly increased opacity in the retrocardiac left lower lobe suspicious for pneumonia/aspiration. 2. Abnormality of the superior middle mediastinum, the configuration of which suggests an air-fluid level in a substantially dilated proximal to mid esophagus, potentially signifying an obstructing mid esophageal mass, gastroesophageal reflux, or achalasia. Recommend chest CT for further evaluation, preferably with IV contrast. Exam: CTA Chest With Contrast Exam date and time: 05/01/2024 2:58 AM Age: 63 years old Clinical indication: Abnormal findings; Abnormal diagnostic tests; Shortness of breath; Patient HX: SOB, elevated d-dimer COMPARISON: CT CHEST PE ABD PELVIS W 01/31/2023 10:04 PM FINDINGS: Tubes, catheters and devices: Percutaneous G-tube in place, appears adequately positioned. Entry site is unremarkable. Pulmonary arteries: Normal. No pulmonary emboli. Aorta: Unremarkable. No aortic aneurysm. No aortic dissection. Lungs: There is extensive bilateral bronchopneumonia and infectious bronchiolitis with a lower lung/posterior predominance, likely aspiration. Pleural spaces: Unremarkable. No pneumothorax. No pleural effusion. Heart: Unremarkable. No pericardial effusion. Esophagus: See Diaphragm finding. Lymph nodes: Unremarkable. No enlarged lymph nodes. Diaphragm: Small hiatal hernia. Substantial distension of the proximal to mid esophagus up to 5 cm in caliber with fluid and a small amount of nondependent gas. There is a transition point at the mid esophagus where there is a short-segment of diffusely thickened and inflamed esophageal wall, compatible with esophagitis. There is no discernible obstructing mass or impacted food/foreign body. No discernible mass. It should be noted though that study was performed as a CTA in arterial phase contrast which limits definition of the esophageal anatomy and stricture, neoplasm, or ingested body cannot be absolutely excluded. Bones/joints: Unremarkable. No acute fracture. Soft tissues: Unremarkable. IMPRESSION: 1. There is extensive bilateral bronchopneumonia and infectious bronchiolitis with a lower lung/posterior predominance, likely aspiration. 2. Small hiatal hernia. Substantial distension of the proximal to mid esophagus up to 5 cm in caliber with fluid and a small amount of nondependent gas. There is a transition point at the mid esophagus where there is a short-segment of diffusely thickened and inflamed esophageal wall, compatible with esophagitis. There is no discernible obstructing mass or impacted food/foreign body. No discernible mass. It should be noted though that study was performed as a CTA in arterial phase contrast which limits definition of the esophageal anatomy and stricture, neoplasm, or ingested body cannot be absolutely excluded. Labs 05/01/24 00:25 05/01/24 05:24 Labs: Laboratory Results - last 24 hr 05/01/24 05/01/24 00:25 01:30 WBC 7.64 RBC 5.36 H Hgb 14.5 Hct 46.5 H MCV 87 MCH 27.1 MCHC 31.2 L RDW 14.6 Plt Count 110 L MPV 11.8 H Immature Gran % 0.7 Neutrophils % 66.9 Lymphocytes % 26.6 Monocytes % 3.3 Eosinophils % 2.1 Basophils % 0.4 Nucleated RBC % 0.0 Absolute Neutrophils 5.12 Absolute Lymphocytes 2.03 Absolute Monocytes 0.25 Absolute Eosinophils 0.16 Absolute Basophils 0.03 PT 9.3 INR 0.9 APTT 24.3 D-Dimer 697 H VBG pH 7.39 VBG pCO2 54 H VBG pO2 28 VBG HCO3 33 H VBG Total CO2 29 VBG O2 Saturation 43 VBG Base Excess 8 H Sodium 147 H Potassium 2.8 L* 2.7 L* Chloride 105 Carbon Dioxide 31.6 Anion Gap 10.4 BUN 8 Creatinine 0.8 Est GFR (CKD-EPI 2020) 82.74 Glucose 103 Calcium 10.0 Magnesium 1.5 L Total Bilirubin 0.35 AST 17 ALT 14 Alkaline Phosphatase 125 H Troponin I 8 4 NT-Pro-B Natriuret Pep 366 H Total Protein 7.3 Albumin 3.1 L COVID-19 Source Nasopharynx SARS-CoV-2 (PCR) Negative Influenza Type A (PCR) Negative Influenza Type B (PCR) Negative RSV (PCR) Negative Last Vital Signs Temp 36.1 C L 04/30/24 23:41 Pulse 87 05/01/24 02:17 Resp 21 05/01/24 04:00 BP 139/52 L 05/01/24 02:17 Pulse Ox 97 05/01/24 04:00 Time Spent Time spent with Patient: >75 minutes Time was spent: preparing to see the patient(eg.review tests), obtaining and/or reviewing separately otained hiistory, ordering medications,tests, procedures, indepentently interpreting results, counseling the patient and care coordination
[2024-05-01] MEDS: AMPICILLIN/SULBACTAM 3 GM in Normal Saline 100 ML IVPB ×4 (04:39→22:01)
[2024-05-01 05:34] LABS: Potassium 3.2 mmol/L (3.5-5.1)
[2024-05-01] MEDS: methylPREDNISolone SUCC 125 MG VIAL 60 MG IVP ×3 (07:20→22:02)
[2024-05-01] MEDS: MAGNESIUM SULFATE 2 GM/50 ML BAG IV_INF (07:21)
--- NOTE | 2024-05-01 08:21 | W.PALLCONSUL ---
Date of service: 05/01/24 Time of Service: 08:21 History of Present Illness History of Present Illness Chief Complaint: recurrent hospitalizations and aspiration pneumonia Narrative: I was asked by Dr. Chacon you are to see Jennifer. She is a 63-year-old woman who has had multiple hospital admissions, aspiration pneumonia, strictures. Dr Denney wants to discuss home versus institutional care. He also would like me to discuss CODE STATUS. She is presently a full code. From H and P This is a 63-year-old lady who has recurrent aspiration with esophageal stricture and basically is attempting not to take anything by mouth at home. She does swallow her saliva it appears she has a nonoperable esophageal stricture and is taking all of her medications as well as nutrition through her feeding tube. [place] [facility] [place] and history of CHF and diabetes which is usually controlled with an outpatient. She is chronically on oxygen at home but only at night at 2 L/min per nasal cannula. She presented to the ED with increased dyspnea and increased oxygen needs. Nasal cannula with expanding infiltrates evaluation. She will be started on Unasyn IV long-term this should be better plan treatment of this patient with recurrent aspiration initiated and possibly not correctable. Palliative care was once again consulted. At this time is a full code. Interim Hx: I am seeing Jennifer in her room. I have spoken with nursing and care management prior to seeing her. Nursing specifically told me to speak with her Campos if decisions needed to be made. I spoke with Campos and he was adamant that he and Jennifer would complete the advance directive. He also said that she would want CPR. He said CPR works in 80% of the time with trained professionals. (I did explain to him that it actually works 6 to 10% of the time at best. He did not believe my sources.) Jennifer could not tell me why she was in the hospital. She could not tell me the ages of her children. She did tell me that she has 2 children and that the youngest was home for the holidays. 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 She has to help him with dressing etc. he is able to feed himself. She states that her children do help her some at home. She has had a feeding tube for 2 years. She is working hard to go up and down 10 stairs. That was the goal that [place] thoracic [place] [facility] [place] her needed to be accomplished prior to considering thoracic surgery for her esophageal stricture. She has been a 1 assist in the hospital per nursing. She states that she used to use a wheelchair and then a walker and a cane but now she pretty much furniture serves. She does have nausea at times. She is able to drink water but gets all of her nutrition through her feeding tube. She states that her bowel movements are good. Her favorite things are to eat read and breathe. She also likes movies. Her favorite [employer] movie is the 1 with Sarai Murrieta and it. A long time ago she smokes cigarettes and drink alcohol but really has not had any alcohol since she was 17 years of age. 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 It has been a long time since she has worked. Consults Consult date: 05/01/24 Requesting physician: Geronimo Denney Assessment and Plan Assessment and plan (1) Counseling regarding advanced care planning and goals of care: Status: Acute (2) Acute hypoxic respiratory failure: Status: Acute (3) Aspiration pneumonia: Status: Acute Assessment and plan: Jennifer has been in the hospital 3 times at in the last 8 weeks. She admits when she gets anxious that her oxygen levels go down further. I did speak to both Jennifer and Campos regarding Jennifer's goals. She has only 1 goal and that is to climb 10 stairs so that she is eligible for her thoracic surgery. She has refused home health including physical therapy. She continues to be a 1 assist. I spoke to both Jennifer and Campos about CODE STATUS. Campos was adamant that a trained professional performing CPR would have an 80% success rate. He wants Jennifer to have CPR. She is a full code Both Jennifer and Campos stated that Jennifer is capable of living at home and they are not interested in considering short or long-term institutional placement Jennifer was open to having further palliative care. Campos relayed to care management that he had palliative care and it kept him out of the hospital. Communicated the above to hospital staff and Dr. Giron. Will continue the process of clarifying goals of care outpatient. Regarding her nausea?she may do better with Reglan but I have not seen where this was actually prescribed Per Campos's instructions I did leave an advance directive for he and Jennifer to complete Review of Systems Narrative: The only review of systems Jennifer was able to give me was that she needed to go to the bathroom PFSH All Active Problems Counseling regarding advanced care planning and goals of care (Acute) Dilatation of esophagus (Acute) Aspiration pneumonia (Acute) Acute and chronic respiratory failure with hypoxia (Acute) Hypomagnesemia (Acute) COPD exacerbation (Acute) Acute hypoxic respiratory failure (Acute) Acute blood loss anemia (Acute) History of total right hip replacement (Acute 03/01/24) As treatment for R femoral neck fracture Medical History COPD (chronic obstructive pulmonary disease) with acute bronchitis Insulin dependent type 2 diabetes mellitus HFrEF (heart failure with reduced ejection fraction) Pre-op evaluation Abnormal chest xray H/O: pneumonia Anemia Drug-induced parkinsonism Neuroleptic induced parkinsonism Tubular adenoma (~06/10/21) Hyperplastic colon polyp (~06/10/21) Farrell's 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 Erosive esophagitis Esophageal ulcer with bleeding Farrell's esophagus Chronic diarrhea Black tarry stools Pleural effusion Leukocytosis Ventral hernia Cholelithiasis Atrial flutter Diabetes Bipolar 1 disorder Depression COVID Acute respiratory failure with hypoxia Acute on chronic respiratory failure with hypoxia Lab test positive for detection of COVID-19 virus Gastrostomy tube obstruction Aspiration pneumonia Pneumonitis Acute respiratory failure with hypoxia and hypercarbia Myocardial injury COPD with acute exacerbation NSTEMI (non-ST elevated myocardial infarction) Per pt. states she did not have a heart attack Bronchiolitis Acute on chronic respiratory failure with hypoxia and hypercapnia Hypotension Vitamin D deficiency Esophageal stricture Chronic systolic (congestive) heart failure Aspiration pneumonia Stress-induced cardiomyopathy acute [place] [facility] [place] press[place], EF 25%, has since recovered RH Acute cardiogenic pulmonary edema Acute metabolic encephalopathy Bilateral pneumonia Hypokalemia Closed fracture of neck of left femur s/p Percutaneous Screw Fixation 08/09/22 Constipation Diabetes mellitus type 2 in obese Chronic iron deficiency anemia ETOH abuse Poorly controlled diabetes mellitus Chronic pancreatitis due to acute alcohol intoxication Alcohol abuse Per pt. states she has never had an issues with any subtances History of pilonidal cyst Anxiety Surgical History PEG (percutaneous endoscopic gastrostomy) status Status post hip surgery History of total left hip arthroplasty (01/19/23) S/P laparoscopic procedure cyst removed from stomach per patient S/P surgical removal of pilonidal cyst History of esophagogastroduodenoscopy (EGD) (~06/10/21) History of colonoscopy with polypectomy (~06/10/21) History of hysterectomy History of tonsillectomy History of section Family History Father Hypertension Diabetes Heart disease Social History Smoking/Tobacco Use Status: Never Smoking risk assessment performed?: Yes Alcohol Intake: never Drug use: Never Substance use type: does not use Household members: spouse Housing: apartment Number of Children: 2 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 After she did go to the bathroom she was much more calm, smiled, was more engaged. She had great difficulty with word finding and oftentimes could not complete a sentence. This frustrated her. HEENT?her hearing seems to be good. She has poor dentition. Her heart was regular. Lungs fairly poor aeration with rales on both lower lobes. Abdomen nontender no redness near the feeding tube site. she was much more engaged at the end of our conversation than she was at the beginning. Results Last Vital Signs Temp 97.7 F 05/01/24 07:52 Pulse 84 05/01/24 07:52 Resp 18 05/01/24 07:52 BP 102/52 L 05/01/24 07:52 Pulse Ox 96 05/01/24 07:52 Labs 05/02/24 06:08 05/02/24 06:08 Labs: Laboratory Results - last 24 hr 05/01/24 05/01/24 05/01/24 00:25 01:30 05:24 WBC 7.64 RBC 5.36 H Hgb 14.5 Hct 46.5 H MCV 87 MCH 27.1 MCHC 31.2 L RDW 14.6 Plt Count 110 L MPV 11.8 H Immature Gran % 0.7 Neutrophils % 66.9 Lymphocytes % 26.6 Monocytes % 3.3 Eosinophils % 2.1 Basophils % 0.4 Nucleated RBC % 0.0 Absolute Neutrophils 5.12 Absolute Lymphocytes 2.03 Absolute Monocytes 0.25 Absolute Eosinophils 0.16 Absolute Basophils 0.03 PT 9.3 INR 0.9 APTT 24.3 D-Dimer 697 H VBG pH 7.39 VBG pCO2 54 H VBG pO2 28 VBG HCO3 33 H VBG Total CO2 29 VBG O2 Saturation 43 VBG Base Excess 8 H Sodium 147 H Potassium 2.8 L* 2.7 L* 3.2 L Chloride 105 Carbon Dioxide 31.6 Anion Gap 10.4 BUN 8 Creatinine 0.8 Est GFR (CKD-EPI 2020) 82.74 Glucose 103 Calcium 10.0 Magnesium 1.5 L Total Bilirubin 0.35 AST 17 ALT 14 Alkaline Phosphatase 125 H Troponin I 8 4 NT-Pro-B Natriuret Pep 366 H Total Protein 7.3 Albumin 3.1 L COVID-19 Source Nasopharynx SARS-CoV-2 (PCR) Negative Influenza Type A (PCR) Negative Influenza Type B (PCR) Negative RSV (PCR) Negative Imaging CT scan - chest: report reviewed (MPRESSION: No evidence of pulmonary embolism. Multifocal bilateral pneumonia, greater in the lower lobes. Chronic finding of marked dilatation of the upper esophagus containing fluid. ) Time Spent Time Spent with Patient Time Spent(min): 64
[2024-05-01] MEDS: Folic Acid 1 MG TAB PO (09:25)
[2024-05-01] MEDS: Aspirin 81 MG CHEW NG (09:25)
[2024-05-01] MEDS: Metoprolol CR 50 MG TABCR 25 MG PO ×2 (09:25→21:02)
[2024-05-01] MEDS: DULoxetine 30 MG CAP 60 MG PO (09:25)
[2024-05-01] MEDS: Empaglifozin 10 MG TAB PO (09:25)
[2024-05-01] MEDS: buPROPion 100 MG TAB 300 MG PO (09:25)
[2024-05-01] MEDS: Sacubitril/Valsartan 24 mg/26 mg TAB 1 EACH JT ×2 (09:28→21:05)
[2024-05-01] MEDS: Sucralfate 1 GM TAB PO ×4 (09:29→21:06)
--- NOTE | 2024-05-01 10:04 | PDOC.CMIN ---
Date of service: 05/01/24 Time of Service: 10:05 Care Management Initial Assmt Initial Assessment Reason for Hospitalization: acute on chronic respiratory failure with hypoxia and hypercapnia Functional Status/Living Situation Patient Presentation: Jennifer has a hx COPD, CHF, T2DM, diego's esophagus with esophageal stricture with feeding tube present. She presented to the ED with worsening SOB and low sats at home, which she could not bring up. Her son called the ambulance. Jennifer was recently admitted to the hospital for COPD exacerbation, discharged on 04/21 on 7 day course of doxycyline and cefpodoxime. Reports that this evening she began to felt short of breath, came on suddenly while getting ready for bed. No significant exertion at onset. Her family was concerned, so EMS was called. Palliative Care consult was placed and will see Jennifer this afternoon to discuss code status and goals of care. When CM met with Jennifer this morning, she was sitting up in the bed, without an O2 requirement. Jennifer was pleasant and conversive with CM, whom is know to Jennifer from her last 2 hospitalizations. She stated that she was a bit scared when she couldn't catch her breath, and increasing her O2 didn't help. She is feeling much better today. CM faxed the H&P to [facility], Venita Wandy to [phone]. . [facility] privides Jennifer's G-Tube supplies. Town of Residence: [facility] Resides with: Spouse (Campos) Significant Other/Family: Local (Rocael Shannon lives nearby. 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 Is doing really well s/p hip replacement. Jennifer uses O2 at night and also has a G-tube Advance Directives Advance Directives: Do you have an Advance Directive: N 04/09/23 11:29 AD On File at [facility]: N 04/09/23 11:29 Date Asked 05/01/24 05/01/24 00:11 AD Date Reviewed COLST On File at [facility] COLST Date Scanned Code Status Resuscitation Status Full Code Insurance Coverage/Financial Issues Insurance: Medicare and [facility] financial assistance at 100% Financial Issues: Campos is on disability. 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 Money is tight, but they get by. Care Team Visit Care Team Role Provider Type Ana Gillespie Primary Care Provider NURSE PRACTITIONER Samia Crawford MD Emergency Provider [facility] STAFF PHYSICIAN Geronimo Denney Admit Provider NON-[facility] STAFF PHYSICIAN Attending Provider Discharge Potential Discharge Needs: PCP F/U Appt Anticipated Barriers to Discharge: None Identified Patient/Family Education Needs: Review discharge instructions, discuss Ask Me Three Transportation: Private vehicle Plan: Anticipate that Jennifer will discharge home with new services for HH RN and PT- [facility] program. She will f/u with her local providers and continue per her plan of care. CM will continue to follow and update the plan as needed. PFSH All Active Problems Dilatation of esophagus (Acute) Aspiration pneumonia (Acute) Acute and chronic respiratory failure with hypoxia (Acute) Hypomagnesemia (Acute) COPD exacerbation (Acute) Acute hypoxic respiratory failure (Acute) Acute blood loss anemia (Acute) History of total right hip replacement (Acute 03/01/24) As treatment for R femoral neck fracture Medical History COPD (chronic obstructive pulmonary disease) with acute bronchitis Insulin dependent type 2 diabetes mellitus HFrEF (heart failure with reduced ejection fraction) Pre-op evaluation Abnormal chest xray H/O: pneumonia Anemia Drug-induced parkinsonism Neuroleptic induced parkinsonism Tubular adenoma (~06/10/21) Hyperplastic colon polyp (~06/10/21) Farrell's 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 Erosive esophagitis Esophageal ulcer with bleeding Farrell's esophagus Chronic diarrhea Black tarry stools Pleural effusion Leukocytosis Ventral hernia Cholelithiasis Atrial flutter Diabetes Bipolar 1 disorder Depression COVID Acute respiratory failure with hypoxia Acute on chronic respiratory failure with hypoxia Lab test positive for detection of COVID-19 virus Gastrostomy tube obstruction Aspiration pneumonia Pneumonitis Acute respiratory failure with hypoxia and hypercarbia Myocardial injury COPD with acute exacerbation NSTEMI (non-ST elevated myocardial infarction) Per pt. states she did not have a heart attack Bronchiolitis Acute on chronic respiratory failure with hypoxia and hypercapnia Hypotension Vitamin D deficiency Esophageal stricture Chronic systolic (congestive) heart failure Aspiration pneumonia Stress-induced cardiomyopathy acute onset [place] [facility] [place] pressors, EF 25%, has since recovered RH Acute cardiogenic pulmonary edema Acute metabolic encephalopathy Bilateral pneumonia Hypokalemia Closed fracture of neck of left femur s/p Percutaneous Screw Fixation 08/09/22 Constipation Diabetes mellitus type 2 in obese Chronic iron deficiency anemia ETOH abuse Poorly controlled diabetes mellitus Chronic pancreatitis due to acute alcohol intoxication Alcohol abuse Per pt. states she has never had an issues with any subtances History of pilonidal cyst Anxiety Surgical History PEG (percutaneous endoscopic gastrostomy) status Status post hip surgery History of total left hip arthroplasty (01/19/23) S/P laparoscopic procedure cyst removed from stomach per patient S/P surgical removal of pilonidal cyst History of esophagogastroduodenoscopy (EGD) (~06/10/21) History of colonoscopy with polypectomy (~06/10/21) History of hysterectomy History of tonsillectomy History of section Family History Father Hypertension Diabetes Heart disease Social History Smoking/Tobacco Use Status: Never Smoking risk assessment performed?: Yes Alcohol Intake: never Drug use: Never Substance use type: does not use Household members: spouse Housing: apartment Number of Children: 2 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 Readmission Within the Past 30 Days Yes or No: Yes Date of First Admission Date of 1st Admission: 04/20/24 Date of this Admission Date of Admission: 05/01/24 This admission was: Through ED Office Visit Since 1st Admission Have you seen your PCP in the office since discharge?: Yes Speicalist Appointments Have you seen any other specialist since your 1st Admission?: Yes Date you saw the Specialist: 04/27 Specialist Seen: ortho - unrelated to admission I. Interview patient and/or Family Difficulty reaching your doctor or getting an office appt?: No Have you had trouble purchasing/ or taking medication?: No Have you had trouble with getting meals at home?: No Did you feel ready for discharge when you left the last time: Yes Reason there were no orders at discharge: client did not want or warrant at that time Did you call your physician beore you came to the ED?: No (it was the middle of the night) How do you think you became sick enough to come back?: I don't know ED visits How many ED visits in the past 12 months: 8 Assessment for Readmission Summary of readmission circumstances, based upon interviews: Pt with long history of lung disease. Will have Palliative Care consult today SDOH(Care Management) Screening Will the Patient Participate in the Screening?: Yes Do you worry about having a steady place to live?: no Problems where you live: no known problems In the past 12 months, have you had to go without electric, gas, oil or water in your home?: no Have you or anyone in your house had to go without enough food to eat?: no Has lack of transportation kept you from medical appointments or from doing things needed for daily living?: no Has anyone in your support network made you feel unsafe for any reason?: no Anticipated HH Services Anticipated HH Services at Discharge [place] [facility] Needed, PT ([facility]) and RN Following Provider: Ana Gillespie.
[2024-05-01] MEDS: Protein Nutritional Supplement 16 GM 1 OUNCE PACKET NG (11:37)
[2024-05-01] MEDS: Insulin Aspart 300 UNITS/3 ML PEN SC ×3 (11:54→22:03)
[2024-05-01] MEDS: Nystatin OINT 15 GM TUBE TP (11:55)
[2024-05-01] MEDS: Ondansetron O.D.T. 4 MG TABEF 8 MG NG (21:01)
[2024-05-01] MEDS: Atorvastatin 40 MG TAB 80 MG PO (21:04)
[2024-05-01] MEDS: Melatonin 3 MG TAB 9 MG PO (21:06)
[2024-05-01] MEDS: QUEtiapine 100 MG TAB PO (21:06)
[2024-05-02 04:03] VITALS: BP 103/65; PULSE 55; RESP 17; TEMP 37; O2SAT 90
[2024-05-02] MEDS: AMPICILLIN/SULBACTAM 3 GM in Normal Saline 100 ML IVPB (04:27)
[2024-05-02] MEDS: methylPREDNISolone SUCC 125 MG VIAL 60 MG IVP (05:43)
[2024-05-02 06:15] LABS: HCT 36.2 % (36.0-46.0); HGB 11.6 g/dL (11.2-15.7); MCH 27.7 pg (27.0-33.0); MCV 86 fL (80-95); MPV 12.6 fL (8.0-11.0); Platelet Count 131 10^3/uL (130-400); RBC 4.19 10^6/uL (3.93-5.22); RDW 14.8 % (11.7-14.6); RDW-SD 46.5 fL; WBC 22.84 10^3/uL (4.4-10.8)
[2024-05-02 06:38] LABS: AST 10 U/L (15-37); Alkaline Phosphatase 100 U/L (46-116); BUN 20 mg/dL (7-18); Bilirubin, Total 0.24 mg/dL (0.2-1.0); CREATININE 0.9 mg/dL (0.55-1.02); Calcium 9.7 mg/dL (8.5-10.1); Chloride 107 mmol/L (98-107); Estimated GFR 71.83 (mL/min/1.73m2); Glucose 282 mg/dL (74-106); Magnesium 2.5 mg/dL (1.8-2.4); Potassium 4.8 mmol/L (3.5-5.1); Sodium 139 mmol/L (136-145); Total Protein 5.5 g/dL (6.4-8.2)
[2024-05-02 06:42] LABS: ALT < 6 U/L (14-59)
[2024-05-02 07:37] VITALS: BP 117/72; PULSE 55; RESP 16; TEMP 37.2; O2SAT 94
[2024-05-02] MEDS: Nystatin OINT 15 GM TUBE TP (08:16)
[2024-05-02] MEDS: Protein Nutritional Supplement 16 GM 1 OUNCE PACKET NG (08:16)
[2024-05-02] MEDS: Insulin Aspart 300 UNITS/3 ML PEN SC (08:16)
[2024-05-02] MEDS: Normal Saline Flush 10 ML SYR IVP (08:17)
[2024-05-02] MEDS: buPROPion 100 MG TAB 300 MG PO (08:17)
[2024-05-02] MEDS: Empaglifozin 10 MG TAB PO (08:18)
[2024-05-02] MEDS: Sacubitril/Valsartan 24 mg/26 mg TAB 1 EACH JT (08:18)
[2024-05-02] MEDS: Metoprolol CR 50 MG TABCR 25 MG PO (08:18)
[2024-05-02] MEDS: DULoxetine 30 MG CAP 60 MG PO (08:18)
[2024-05-02] MEDS: Aspirin 81 MG CHEW NG (08:18)
[2024-05-02] MEDS: Sucralfate 1 GM TAB PO (08:18)
[2024-05-02] MEDS: Folic Acid 1 MG TAB PO (08:18)
--- NOTE | 2024-05-02 09:37 | PDOC.HHF2F_ITS ---
Home Health Referral Home Health Orders Clinical synopsis of why skilled professionals are needed: COPD, g-tube, chronic aspiration Registered Nurse: Check all that apply Instruct on new or changed medication(s)/assess compliance: Ordered Physical Therapist: Check all that apply [facility]: Ordered Encounter Date and Reason: I certify that a FTF encounter for this patient was performed on May 02, 2024 and that such encounter was related to the primary reason the patient requires home health services. The encounter was conducted in the following manner: * By me as the certifying physician, DIRECTOR EXECUTIVE COMMUNICATIONS, PA or * By an inpatient physician, DIRECTOR EXECUTIVE COMMUNICATIONS or PA during an inpatient stay who communicated findings to me, Certification And Authentication I certify that I composed the above information based on my clinical judgment relating to this patient's medical condition and, if applicable, clinical findings communicated to me by the NPP or inpatient physician who performed the FTF encounter. Name of Provider that will be monitoring home health services: Ana Gillespie
--- NOTE | 2024-05-02 09:37 | DSE_ITS ---
Date of service: 05/02/24 Time of Service: 09:37 DS: Diagnosis Discharge Diagnosis (1) Counseling regarding advanced care planning and goals of care: Status: Acute (2) Acute hypoxic respiratory failure: Status: Acute (3) Aspiration pneumonia: Status: Acute Discharge Plan Disposition Patient Disposition: Home W/Home Health Services Condition: Good Discharge Details Reason For Visit: Acute respiratory failure, aspiration pneumonia Admit Date/Time: 05/01/24 04:55 Admit Provider: Geronimo Denney Attending Provider: Geronimo Denney Primary Care Provider: Ana Gillespie Hospital Course Hospital Course: Patient initially presented with signs and symptoms that were consistent with acute on chronic hypoxic respiratory failure secondary to COPD exacerbation and aspiration pneumonia for which she was treated with IV Unasyn, steroids and nebulizer treatments. She quickly was transitioned to room air during the day and did not have any exertional shortness of breath with ambulation. Ultimately was determined that she was stable for discharge home and will have an additional 7 days of Augmentin. It is also recommended that she resume tube feeds as prior. Home Meds and New Rx's Prescriptions: New amoxicillin-pot clavulanate 875-125 mg tablet 1 tab PO BID Qty: 14 0RF prednisone 20 mg tablet 40 mg PO DAILY 5 Days Qty: 10 0RF Continued bupropion HCl 100 mg tablet 300 mg PO DAILY Patient Comments: via g-tube, per pcp ov notes 12/09/22 RH protein Powder See Rx Instructions PO .COMPLEX Rx Instructions: 2 scoops daily duloxetine [Cymbalta] 20 mg capsule,delayed release(DR/EC) 20 mg PO HS Patient Comments: TAKE 1 CAPSULE PER DAY VIA G-TUBE IN THE EVENING duloxetine [Cymbalta] 60 mg capsule,delayed release(DR/EC) 60 mg PO DAILY sacubitril-valsartan [Entresto] 24-26 mg tablet 1 tab feeding tube BID Patient Comments: via g-tube Jardiance 10 mg tablet 10 mg PO DAILY atorvastatin 80 mg tablet 80 mg PO DAILY valproic acid (as sodium salt) 250 mg/5 mL solution 300 mg PO TID Rx Instructions: 6mls TID metoprolol succinate 50 mg tablet extended release 24 hr 25 mg PO BID sucralfate 1 gram tablet 1 g PO QID Patient Comments: TAKE ONE TABLET BY MOUTH FOUR TIMES A DAY folic acid 1 mg Tablet 1 mg PO DAILY Qty: 0 0RF ferrous sulfate 300 mg (60 mg iron)/5 mL liquid 300 mg feeding tube .QOD Patient Comments: TAKE 5ML VIA G-TUBE EVERY OTHER DAY Humulin N NPH Insulin KwikPen 100 unit/mL (3 mL) insulin pen See Rx Instructions .ROUTE .COMPLEX Qty: 0 0RF Rx Instructions: 20 units at 11 am followed by sliding scale at 3 pm (5 units for blood sugar of 250 plus 1 additional unit for any 20 points that the blood sugar is above 250) ibuprofen 100 mg/5 mL suspension 600 mg PO Q8H PRN guaifenesin 200 mg/5 mL liquid 200 mg feeding tube Q4H PRNQty: 118 0RF aspirin 81 mg tablet,chewable 81 mg feeding tube DAILY Qty: 30 0RF acetaminophen 500 mg/15 mL liquid 1,000 mg PO Q8H PRNQty: 237 2RF nystatin 100,000 unit/gram powder 1 applic TOPICAL TID PRN Patient Comments: APPLY TO BUTTOCKS THREE TIMES A DAY NEEDED pantoprazole [address] for susp in packet 40 mg G-tube DAILY Patient Comments: Take 1 packet via g-tube twice a day Administer in 10 mL of apple juice via g-tub, then follow with another 10 mL. nystatin 100,000 unit/gram cream 1 applic TOPICAL TID PRN Patient Comments: APPLY A SMALL AMOUNT TO AFFECTED AREA(S) ON BUTTOCKS THREE TIMES A DAY NEEDED melatonin 3 mg tablet 9 mg feeding tube HS Patient Comments: TAKE THREE TABLETS VIA G-TUBE EVERY NIGHT DIRECTED insulin glargine [Lantus Solostar U-100 Insulin] 100 unit/mL (3 mL) insulin pen 10 unit SUBCUT QPM Patient Comments: INJECT 10 UNITS UNDER THE SKIN NIGHTLY DIRECTED ondansetron HCl 4 mg tablet 8 mg feeding tube Q8H PRN Patient Comments: TAKE ONE TABLET VIA G-TUBE EVERY 8 HOURS NEEDED quetiapine 100 mg tablet 100 mg PO HS Qty: 0 0RF nystatin 100,000 unit/gram ointment 1 applic TOPICAL BID Patient Comments: APPLY TO AFFECTED AREA(S) TWO TIMES A DAY albuterol sulfate 90 mcg/actuation HFA aerosol inhaler 2 puff inhalation 6XD PRNQty: 8.5 0RF doxycycline hyclate 100 mg Capsule 100 mg feeding tube BID Qty: 7 0RF cefpodoxime 200 mg tablet 200 mg PO BID Qty: 10 0RF Rx Instructions: must administer with a meal/food Discontinued prednisone 20 mg Tablet 40 mg feeding tube DAILY Qty: 10 0RF No Action (DME) Space Chamber Spacer See Rx Instructions .Route Qty: 1 0RF Rx Instructions: As directed Discharge Instructions Stand Alone Forms: Nursing Discharge Form Referrals: Ana Gillespie [Primary Care Provider] - (Please call the office to set up a hospital follow up within 10-14 days) Activity:: Activity as Tolerated Equipment/Supplies:: No Equipment Needed Diet:: As Tolerated Discharge Orders Discharge Orders: Discharge Order (Routine); Ordered 05/02/24 Ordered By: Darin Giron DS: Summary Time Spent with Patient providing and/or coordinating discharge services: Greater than 30 minutes Status at Discharge Functional status at discharge: independent ambulation Overall status at discharge: patient is back to baseline Mental Status: mental status grossly normal Speech and Movement: speech and movement normal Mood: congruent mood Affect: normal affect Quality:SDOH Health Related Social Needs: No Data to Display Exam Narrative Exam Narrative: Chronically ill-appearing older female sitting up in the chair no acute distress, ANO x 4, heart regular rhythm, lungs clear auscultation bilaterally, abdomen soft, nontender, nondistended Psych Mental Status: mental status grossly normal Speech and Movement: speech and movement normal Mood: congruent mood Affect: normal affect DS: Data Vitals/I&O Vitals and I&O: Vital Signs Temperature 99.0 F 05/02/24 07:37 Temperature Source Temporal Artery Scan 05/02/24 07:37 Pulse 55 L 05/02/24 07:37 Pulse Rhythm Regular 05/01/24 07:36 Pulse 95 H 05/01/24 05:50 Respiratory Rate 16 05/02/24 07:37 Respiratory Effort Pursed Lip 05/01/24 07:36 Respiratory Depth Normal 05/01/24 07:36 Respiratory Pattern Normal 05/01/24 07:36 Blood Pressure 117/72 05/02/24 07:37 Blood Pressure Mean 72 05/01/24 05:30 Blood Pressure Position Supine 04/30/24 23:41 Pulse Oximetry 94 05/02/24 07:37 Oxygen Delivery Method Room Air 05/02/24 07:37 Oxygen Flow Rate 0 05/02/24 07:37 Pain Level 0 05/02/24 07:37 Comment will inform RN HR 05/02/24 07:37 Intake & Output 05/01/24 05/02/24 05/02/24 17:59 05:59 17:59 Intake Total 1260 / 1260 230 / 1490 Output Total 300 / 300 900 / 1200 300 / 300 Balance 960 / 960 -670 / 290 -300 / -300 Weight 147 lb 7.828 oz 147 lb 14.883 oz Intake: IV 300 / 300 230 / 530 Intake, Tube Feeding Amount 960 / 960 Output: Urine 300 / 300 900 / 1200 300 / 300 Other: Urine Color Yellow Yellow Yellow Urine Appearance Clear Clear Clear Urine Odor Normal Normal Comment unclear amount, mixed with toilet paper. Stool Size Small Stool Characteristics Soft Emesis Description Clear/Water Data Completed and Pending Labs on day of discharge: Labs from last 24 hours 05/02/24 06:08 WBC 22.84 H RBC 4.19 Hgb 11.6 D Hct 36.2 MCV 86 MCH 27.7 MCHC 32.0 RDW 14.8 H Plt Count 131 MPV 12.6 H Sodium 139 Potassium 4.8 D Chloride 107 Carbon Dioxide 29.0 Anion Gap 3.0 BUN 20 H Creatinine 0.9 Est GFR (CKD-EPI 2020) 71.83 Glucose 282 H Calcium 9.7 Magnesium 2.5 H Total Bilirubin 0.24 AST 10 L ALT < 6 L Alkaline Phosphatase 100 Total Protein 5.5 L Albumin 2.0 L PFSH All Active Problems Counseling regarding advanced care planning and goals of care (Acute) Dilatation of esophagus (Acute) Aspiration pneumonia (Acute) Acute and chronic respiratory failure with hypoxia (Acute) Hypomagnesemia (Acute) COPD exacerbation (Acute) Acute hypoxic respiratory failure (Acute) Acute blood loss anemia (Acute) History of total right hip replacement (Acute 03/01/24) As treatment for R femoral neck fracture Medical History COPD (chronic obstructive pulmonary disease) with acute bronchitis Insulin dependent type 2 diabetes mellitus HFrEF (heart failure with reduced ejection fraction) Pre-op evaluation Abnormal chest xray H/O: pneumonia Anemia Drug-induced parkinsonism Neuroleptic induced parkinsonism Tubular adenoma (~06/10/21) Hyperplastic colon polyp (~06/10/21) Farrell's 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 Erosive esophagitis Esophageal ulcer with bleeding Farrell's esophagus Chronic diarrhea Black tarry stools Pleural effusion Leukocytosis Ventral hernia Cholelithiasis Atrial flutter Diabetes Bipolar 1 disorder Depression COVID Acute respiratory failure with hypoxia Acute on chronic respiratory failure with hypoxia Lab test positive for detection of COVID-19 virus Gastrostomy tube obstruction Aspiration pneumonia Pneumonitis Acute respiratory failure with hypoxia and hypercarbia Myocardial injury COPD with acute exacerbation NSTEMI (non-ST elevated myocardial infarction) Per pt. states she did not have a heart attack Bronchiolitis Acute on chronic respiratory failure with hypoxia and hypercapnia Hypotension Vitamin D deficiency Esophageal stricture Chronic systolic (congestive) heart failure Aspiration pneumonia Stress-induced cardiomyopathy acute onset managed at [facility] 08/30 pressors, EF 25%, has since recovered RH Acute cardiogenic pulmonary edema Acute metabolic encephalopathy Bilateral pneumonia Hypokalemia Closed fracture of neck of left femur s/p Percutaneous Screw Fixation 08/09/22 Constipation Diabetes mellitus type 2 in obese Chronic iron deficiency anemia ETOH abuse Poorly controlled diabetes mellitus Chronic pancreatitis due to acute alcohol intoxication Alcohol abuse Per pt. states she has never had an issues with any subtances History of pilonidal cyst Anxiety Surgical History PEG (percutaneous endoscopic gastrostomy) status Status post hip surgery History of total left hip arthroplasty (01/19/23) S/P laparoscopic procedure cyst removed from stomach per patient S/P surgical removal of pilonidal cyst History of esophagogastroduodenoscopy (EGD) (~06/10/21) History of colonoscopy with polypectomy (~06/10/21) History of hysterectomy History of tonsillectomy History of section Family History Father Hypertension Diabetes Heart disease Social History Smoking/Tobacco Use Status: Never Smoking risk assessment performed?: Yes Alcohol Intake: never Drug use: Never Substance use type: does not use Household members: spouse Housing: apartment Number of Children: 2 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
--- NOTE | 2024-05-02 09:47 | CMDISCH_ITS ---
Date of service: 05/02/24 Time of Service: 09:48 LACE Index Scoring Tool Questions: Length of Stay (in days): 1 Was the patient admitted via the E.D.?: Yes Comorbidities: Chronic Pulmonary Disease E.D. Visits: 3 Answers: Total Score: 9 Risk of Readmission: Low Risk Care Management Discharge Plan Reason for Hospitalization: acute respiratory failure, aspiration pneumonia Discharge Plan: Jennifer will return home with new orders for HH RN and for the [facility] program. Her will drive her home via private vehicle. She will follow up with her PCP and discharge plan of care. She is happy to be going home. Patient/Family Education Needs: Review discharge instructions and limitations, discussion of self care needs including ask me three. Services Needed at Discharge: Home Health Care Services (new RN, PT ([facility] program)) [facility] Health Related Social Needs: No Data to Display
== END 2024-05-02 10:21 | disposition home health service (06) | DRG 177 ==
LOC: ER 05:24 → MS 06:09
PROVIDERS: Admitting Provider Family Medicine; Emergency Provider Student in an Organized Health Care Education/Training Program; PCP Nurse Practitioner Family; Visit Provider Family Medicine
DX: J69.0 Pneumonitis due to inhalation of food and vomit (principal); J96.21 Acute and chronic respiratory failure with hypoxia; J96.22 Acute and chronic respiratory failure with hypercapnia; J44.1 Chronic obstructive pulmonary disease with (acute) exacerbation; I50.20 Unspecified systolic (congestive) heart failure; G21.11 Neuroleptic induced parkinsonism; I48.92 Unspecified atrial flutter; K22.89 Other specified disease of esophagus; E83.42 Hypomagnesemia; E87.6 Hypokalemia; F34.1 Dysthymic disorder; Z79.4 Long term (current) use of insulin; Z79.84 Long term (current) use of oral hypoglycemic drugs; K22.70 Barrett's esophagus without dysplasia; F31.9 Bipolar disorder, unspecified; F41.9 Anxiety disorder, unspecified; E11.65 Type 2 diabetes mellitus with hyperglycemia; Z93.1 Gastrostomy status; Z99.81 Dependence on supplemental oxygen; D50.9 Iron deficiency anemia, unspecified; Z96.642 Presence of left artificial hip joint
CPT/HCPCS: 00123; 36415; 71275; 80053; 82805; 85027; 87637; 93005; 94640; 96361; 96365; 99285; 71046; 83735; 83880; 84132; 84484; 85025; 85379; 85610; 85730; 93010; 94760; 99223; 99239; J0295; J1815; J2919; J3475; J3480; J3490; J7620

== ENCOUNTER 2024-05-19 20:17 | Outpatient (REF) | payer SELFPAY ==
[2024-05-19 14:40] LABS: Vitamin D 25 Total 70.8 ng/mL (30-100)
[2024-05-19 14:46] LABS: D-Dimer 578 ng/mlFEU (<500)
--- OUTSIDE RECORDS SUMMARY | 2024-05-19 20:25 | XMS_ITS | Encounter Summary ---
Author Organization Replaced By [facility] Address [facility] Marly petersen [place] [id number] Care Team Providers Care Manager Chinese Name Role Phone Ana Gillespie APRN Primary Care Provider [phone] Encounter Details Date Type Department Care Team [...] Care Team (Late st Contact Info) Description 05/26/2024 1:10 PM EST Appointment Radiology at [place] [phone] Gavin Carrillo MD [facility] [place] [address] 06/05/2024 1:20 PM EST Office Visit Cardiology at [address] [phone] Milagros Hernandez MD [facility] [place] [address] Scheduled Procedures Name Priority Associated Diagnoses Date/Ti me EGD, UPPER GI ENDOSCOPY (WRV U 2.09) Peptic stricture of esophagus documented as of this encounter Visit Diagnoses Not on filedocumented in this encounter Care Teams Manager Chinese Relationship Specialty Start Date End Date Ana Gillespie APRN [address] [place] [address] PCP - General Family Medicine 02/03/19 documented as of this encounter
--- OUTSIDE RECORDS SUMMARY | 2024-05-19 20:25 | XMS_ITS | Encounter Summary ---
[place] [address] Care Team Providers Care Tire Groover Name Role Phone Ana Gillespie VAUGHN Primary Care Provider [phone] Reason for Referral * Diagnostic Test (Routine) - Closed Specialty Diagnoses / Procedures Referred By Contac t Referred To Contact Cardiology Diagnoses Hypotension, unspecified hypotension type HFrEF (heart failure with reduced ejection fraction) Procedures Mobile Bandar Hernandez MD [address] [place] [address] [place] [address] [facility] [place] [address] Referral ID Status Reason Start Date Expiration Date V isits Requested Visits Authorized [id number] Closed Specialty Service Requested 03/03/2024 03/03/2025 1 1 Reason for Visit * Diagnostic Test (Routine) - Closed Specialty Diagnoses / Procedures Referred By Contac t Referred To Contact Cardiology Diagnoses Hypotension, unspecified hypotension type HFrEF (heart failure with reduced ejection fraction) Procedures Mobile Bandar Hernandez MD [address] [place] [address] [place] [address] [facility] [place] [address] Referral ID Status Reason Start Date Expiration Date V isits Requested Visits Authorized [id number] Closed Specialty Service Requested 03/03/2024 03/03/2025 1 1 Encounter Details Date Type Department Care Team (Latest Contact Info) Description 03/03/2024 11:49 AM EDT - 03/03/2024 11:59 PM EDT Hospital Encounter [place] [address] Bandar Guerra MD [address] [place] [address] [place] [address] Hypotension, unspecified hypotension type; HFrEF (heart failure [...] meter kit. 1 each 0 12/14/2014 Insulin [place], Disposable, (BD INSULIN PEN NEEDLE UF MINI) [...] 05/26/2024 1:10 PM [place] [address] Gavin Carrillo MD [facility] [place] [address] 06/05/2024 1:20 PM EST Office Visit Cardiology at [address] [phone] Milagros Hernandez MD [facility] [place] [address] Scheduled Procedures Name Priority Associated Diagnoses Date/Ti [...] EDT Narrative 03/03/2024 1:08 PM EDT 1 [place] [address] ? Echocardiogram Report Name: JENNIFER IRVING ? Study Date: 03/03/2024 09:49 AMBP: 116/55 mmHg : 1960 ? Height: 155 cm ? Account: [id number] Age: 63 yrs ? Weight: 76 kg [...] LV systolic function has significantly improved. Procedure Complete-[id number]. Suboptimal quality. This study is limited because [...] Note Patric Calderon MD - 03/03/2024 1 [place] [address] Echocardiogram Report Name: IRVINGJENNIFER Study Date:03/03/2024 09:49 AMBP: 116/55 mmHg : 1960 Height: 155 cm Account: [id number] Age: 63 yrs Weight: 76 kg Gender: [...] 08/19/2022, LV systolic function hassignificantly improved. Procedure Complete-[id number]. Suboptimal quality. This study is limited because [...] fraction) documented in this encounter Care Teams Tire Groover Relationship Specialty Start Date End Date Ana Gillespie APRN [address] [place] [address] PCP - General Family Medicine 02/03/19 documented as of this encounter
--- OUTSIDE RECORDS SUMMARY | 2024-05-19 20:25 | XMS_ITS | Encounter Summary ---
Author Organization [facility] Address [facility] [place] [address] Care Team Providers Care Clinical Trial Associate Name Role Phone Ana Gillespie APRN Primary Care Provider Encounter Details Date Type Department Care Team (Latest Contact Info) Description 11/17/2023 8:40 AM EDT Office Visit Cardiology at [address] [phone] Milagros Hernandez MD [facility] [address] Stress-induced cardiomyopathy Social History Tobacco Use Types [...] original note were not included. [facility] [id number] CARDIOLOGY OUTPATIENT NOTE PRIMARY CARE PROVIDER: Ana Gillespie APRN REFERRING PROVIDER: Aan Gillespie PROBLEM LIST: Patient Active Problem List [...] glucose meter kit. 1 each 0 Insulin [place], Disposable, (BD INSULIN PEN NEEDLE UF MINI) [...] and unfortunately was admitted to [facility] at the end of February shortly after [...] she had another admission to [facility] in June 2023 for COPD which was complicated by a Type II NSTEMI. The elect equip maint eng extrusion die repair manager here was contacted and recommended a TTE, [...] no evidence that providers at [facility] reached back out to Cardiology here so [...] low voltage, otherwise normal TTE ([facility], 11/20/22): TTE (08/19/22): Interpretation Summary -Left ventricular [...] her echo from June at [facility] which I do not have the results [...] echocardiogram results from June at [facility] - Patient to reach out once surgical [...] visit. Milagros Hernandez MD Cardiovascular Medicine [facility] 11/17/2023 documented in this encounter Plan of Treatment Upcoming Encounters Date Type Department Care Team (Late st Contact Info) Description 05/26/2024 1:10 PM EST Appointment Radiology at [place] [phone] Gavin Carrillo MD [facility] [place] [address] 06/05/2024 1:20 PM EST Office Visit Cardiology at [address] [phone] Milagros Hernandez MD [facility] [place] [address] Scheduled Procedures Name Priority Associated Diagnoses Date/Ti me EGD, UPPER GI ENDOSCOPY (WRV U 2.09) Peptic stricture of esophagus documented as of this encounter Visit Diagnoses Diagnosis Stress-induced cardiomyopathy Takotsubo syndrome documented in this encounter Care Teams Clinical Trial Associate Relationship Specialty Start Date End Date Ana Gillespie APRN [address] [place] [address] PCP - General Family Medicine 02/03/19 documented as of this encounter
--- OUTSIDE RECORDS SUMMARY | 2024-05-19 20:25 | XMS_ITS | Encounter Summary ---
Author Organization [facility] [place] [address] Care Team Providers Care Charter Coach Driver Name Role Phone Ana Gillespie APRN Primary Care Provider [phone] Encounter Details Date Type Department Care Team (Late st Contact Info) Description 03/08/2024 Telephone Cardiology at [address] [phone] Nicole Guillory RN Social History Tobacco Use [...] 05/26/2024 1:10 PM [place] [address] Gavin Carrillo MD [facility] [place] [address] 06/05/2024 1:20 PM EST Office Visit Cardiology at [address] [phone] Milagros Hernandez MD [facility] [place] [address] Scheduled Procedures Name Priority Associated Diagnoses Date/Ti me EGD, UPPER GI ENDOSCOPY (WRV U 2.09) Peptic stricture of esophagus documented as of this encounter Visit Diagnoses Not on filedocumented in this encounter Care Teams Charter Coach Driver Relationship Specialty Start Date End Date Ana Gillespie APRN [address] [place] [address] PCP - General Family Medicine 02/03/19 documented as of this encounter
--- OUTSIDE RECORDS SUMMARY | 2024-05-19 20:25 | XMS_ITS | Encounter Summary ---
Author Organization [facility] Address [facility] [place] [address] Care Team Providers Care Eating Disorder Specialist Name Role Phone Ana Gillespie APRN Primary Care Provider [phone] Encounter Details Date Type Department Care Team (Late st Contact Info) Description 02/23/2024 Telephone [place] [phone] [facility] [place] [phone] Social History Tobacco Use Types Packs/Day Years [...] 05/26/2024 1:10 PM EST [place] [phone] Gavin Carrillo MD [facility] [place] [address] 06/05/2024 1:20 PM EST Office Visit Cardiology at [address] [phone] Milagros Hernandez MD [facility] [place] [address] Scheduled Procedures Name Priority Associated Diagnoses Date/Ti me EGD, UPPER GI ENDOSCOPY (WRV U 2.09) Peptic stricture of esophagus documented as of this encounter Visit Diagnoses Not on filedocumented in this encounter Care Teams Eating Disorder Specialist Relationship Specialty Start Date End Date Ana Gillespie APRN [address] [place] [address] PCP - General Family Medicine 02/03/19 documented as of this encounter
--- OUTSIDE RECORDS SUMMARY | 2024-05-19 20:25 | XMS_ITS | Encounter Summary ---
Author Organization [facility] Address [facility] [place] [address] Care Team Providers Care Materials Recycler Name Role Phone Ana Gillespie VAUGHN Primary Care Provider [phone] Reason for Referral * Consultation (Routine) - Closed Specialty Diagnoses / Procedures Referred By Esperanza rodríguez Referred To Contact Thoracic Surgery Diagnoses Peptic stricture of esophagus Peptic stricture of esophagus David Dejesus MD [facility] [place] [address] Geronimo Mojica MD [facility] [place] [address] Referral ID Status Reason Start Date Expiration Date V isits Requested Visits Authorized [id number] Closed Consult, Test & Treat 11/05/2023 11/04/2024 1 1 Encounter Details Date Type Department Care Team (Late st Contact Info) Description 11/05/2023 Orders Only Gastroenterology at [place] [phone] David Dejesus MD [facility] [place] [address] Peptic stricture of esophagus Social History Tobacco [...] 05/26/2024 1:10 PM EST [place] [phone] Gavin Carrillo MD [facility] [place] [address] 06/05/2024 1:20 PM EST Office Visit Cardiology at [address] [phone] Milagros Hernandez MD [facility] [place] [address] Scheduled Procedures Name Priority Associated [...] esophagus documented in this encounter Care Teams Materials Recycler Relationship Specialty Start Date End Date Ana Gillespie APRN [address] [place] [address] PCP - General Family Medicine 02/03/19 documented as of this encounter
--- OUTSIDE RECORDS SUMMARY | 2024-05-19 20:25 | XMS_ITS | Encounter Summary ---
Author Organization [facility] Address [facility] [place] [address] Care Team Providers Care Brush Maker Name Role Phone Ana Gillespie APRN Primary Care Provider [phone] Encounter Details Date Type Department Care Team (Late st Contact Info) Description 02/23/2024 Telephone [place] [phone] [facility] [place] [address] Social History Tobacco Use Types Packs/Day Years [...] 05/26/2024 1:10 PM EST App[place]ment [place] [address] Gavin Carrillo MD [facility] [place] [address] 06/05/2024 1:20 PM EST Office Visit Cardiology at [address] [address] Milagros Hernandez MD [facility] [place] [address] Scheduled Procedures Name Priority Associated Diagnoses Date/Ti me EGD, UPPER GI ENDOSCOPY (WRV U 2.09) Peptic stricture of esophagus documented as of this encounter Visit Diagnoses Not on filedocumented in this encounter Care Teams Brush Maker Relationship Specialty Start Date End Date Ana Gillespie APRN [address] [place] [address] PCP - General Family Medicine 02/03/19 documented as of this encounter
--- OUTSIDE RECORDS SUMMARY | 2024-05-19 20:25 | XMS_ITS | Encounter Summary ---
[place] [address] Care Team Providers Care Communications Professional Name Role Phone Ana Gillespie VAUGHN Primary Care Provider [phone] Reason for Referral * Diagnostic Test (Routine) - Authorized Specialty Diagnoses / Procedures Referred By Esperanza rodríguez Referred To Contact Radiology Diagnoses Problem with gastrostomy tube Procedures IR G-Tube Check/Change Leon Morales [facility] [address] [place] [address] Referral ID Status Reason Start Date Expiration Date Visits Requested Visits Authorized [id number] Authorized Specialty Service Requested 4 09/30/2025 1 1 Encounter Details Date Type Department Care Team (Late st Contact Info) Description 04/02/2024 Notes [place] [address] Leon Morales [facility] [address] Social History Tobacco Use Types Packs/Day Years [...] daily. 180 tablet 3 Blood Sugar Diagnostic ([email or web address] ULTRA TEST) Strip 1 each by Other [...] glucose meter kit. 1 each 0 Insulin [place], Disposable, (BD INSULIN PEN NEEDLE UF MINI) 31 x 3/16 Needle 1 Device by [facility].(Non-Drug; Combo Route) route 3 times daily as [...] IR G-Tube Check/Change 11/27/2022 Hang Cooper PA [facility] INTERVENTIONL RAD IR G-TUBE CHECK/CHANGE 03/10/2023 IR G-Tube Check/Change 03/10/2023 Geronimo Chambers DO [facility] INTERVENTIONL RAD IR G-TUBE CHECK/CHANGE 04/06/2023 IR G-Tube Check/Change 04/06/2023 Gavni Carrillo MD [facility] INTERVENTIONL RAD IR G-TUBE CHECK/CHANGE 05/09/2023 IR G-Tube Check/Change [facility] INTER[facility] RAD IR G-TUBE CHECK/CHANGE 07/09/2023 IR G-Tube Check/Change [facility] INTER[facility] RAD IR G-TUBE CHECK/CHANGE 09/17/2023 IR G-Tube Check/Change 09/17/2023 Hang Cooper PA [facility] INTERVENTION[facility] RAD IR G-TUBE CHECK/CHANGE 10/14/2023 IR G-Tube Check/Change 10/14/2023 Moustapha Hart MD [facility] INTERVENTIONL RAD IR G-TUBE CHECK/CHANGE 02/07/2024 IR G-Tube Check/Change 02/07/2024 Hang Cooper PA [facility] INTER[facility] RAD IR G-TUBE PLACEMENT 09/11/2022 IR G-Tube Placement 09/11/2022 Moustapha Hart MD [facility] INTERVENTION[facility] RAD IR SUTURE RELEASE 09/25/2022 IR Suture Release 09/25/2022 Yoselin Ghosh PA [facility] INTERVENT[facility] RAD PERCUTANEOUS GASTROSTOMY N/A 09/11/2022 PERCUTANEOUS GASTROSTOMY performed by Aiden Flores MD at [facility] CATY PRO COLONOSCOPY, BIOPSY N/A 03/20/2016 COLONOSCOPY FLEXIBLE, WITH BX performed by David Dejesus MD at [facility] ENDOSCOPY PRO COLONOSCOPY, DIAGNOSTIC N/A 03/01/2020 COLONOSCOPY, DIAGNOSTIC performed by David Dejesus MD at [facility] ENDOSCOPY PRO DILATE ESOPHAGUS N/A 11/05/2023 EGD-DILATATION BY SOUND OR BOUGIE, SINGLE OR MULTIPLE PASSES (WRVU 1.28) performed by David Dejesus MD at [facility] ENDOSCOPY PRO ENDOSCOPIC US EXAM, ESOPH N/A 03/31/2022 UPPER EUS- ENDOSCOPIC ULTRASOUND performed by David Dejesus MD at [facility] ENDOSCOPY PRO UP GI ENDOSCOPY, BALL DIL, 30MM N/A 12/24/2022 EGD,WITH DILATION ESOPHAGUS WITH BALLOON,< 30 MM (WRVU 2.67) performed by David Dejesus MDat [facility] ENDOSCOPY PRO UP GI ENDOSCOPY, BALL DIL, 30MM N/A 01/12/2023 EGD,WITH DILATION ESOPHAGUS WITH BALLOON,< 30 MM (WRVU 2.67) [facility] ENDOSCOPY PRO UP GI ENDOSCOPY, BALL DIL, 30MM N/A 02/26/2023 EGD,WITH DILATION ESOPHAGUS WITH BALLOON,< 30 MM (WRVU 2.67) performed by David Dejesus [facility] ENDOSCOPY PRO UP GI ENDOSCOPY, BALL DIL, 30MM N/A 03/16/2023 EGD,WITH DILATION ESOPHAGUS WITH BALLOON,< 30 MM (WRVU 2.67) performed by David Dejesus [facility] ENDOSCOPY PRO UP GI ENDOSCOPY, BALL DIL, 30MM N/A 03/30/2023 EGD,WITH DILATION ESOPHAGUS WITH BALLOON,< 30 MM (WRVU 2.67) performed by David Dejesus [facility] ENDOSCOPY PRO UP GI ENDOSCOPY, BALL DIL, 30MM N/A 04/30/2023 EGD,WITH DILATION ESOPHAGUS WITH BALLOON,< 30 MM (WRVU 2.67) performed by David Dejesus [facility] ENDOSCOPY PRO UP GI ENDOSCOPY, BALL DIL, 30MM N/A 06/01/2023 EGD,WITH DILATION ESOPHAGUS WITH BALLOON,< 30 MM (WRVU 2.67) performed by David Dejesus [facility] ENDOSCOPY PRO UP GI ENDOSCOPY, BALL DIL, 30MM N/A 08/02/2023 EGD,WITH DILATION ESOPHAGUS WITH BALLOON,< 30 MM (WRVU 2.67) [facility] ENDOSCOPY, DILATN W GUIDE N/A 10/07/2023 EGD-ESOPHOGEAL DILATATION OVER GUIDE WIRE (WRVU 2.91) performed by David Dejesus MD at [facility] ENDOSCOPY PRO UP GI ENDOSCOPY, DILATN W GUIDE N/A 11/05/2023 EGD-ESOPHOGEAL DILATATION OVER GUIDE WIRE (WRVU 2.91) performed by David Dejesus MD at [facility] ENDOSCOPY PRO UPPER GI ENDOSCOPY, BIOPSY N/A 04/03/2014 UPPER GASTROINTESTINAL ENDOSCOPY,WITH BIOPSY SINGLE OR MULTIPLE performed by David Dejesus MDat [facility] ENDOSCOPY PRO UPPER GI ENDOSCOPY, BIOPSY N/A 03/20/2016 EGD WITH BIOPSY performed by David Dejesus MD at [facility] ENDOSCOPY PRO UPPER GI ENDOSCOPY, BIOPSY N/A 11/22/2018 EGD WITH BIOPSY (WRVU 2.49) performed by David Dejesus MD at [facility] ENDOSCOPY PRO UPPER GI ENDOSCOPY, BIOPSY N/A 03/01/2020 UPPER GASTROINTESTINAL ENDOSCOPY,WITH BIOPSY SINGLE OR MULTIPLE (WRVU 2.49) performed by David Dejesus MD at [facility] ENDOSCOPY PRO UPPER GI ENDOSCOPY, BIOPSY N/A 09/23/2021 EGD WITH BIOPSY (WRVU 2.49) performed by David Dejesus MD at [facility] ENDOSCOPY PRO UPPER GI ENDOSCOPY, BIOPSY N/A 03/31/2022 EGD WITH BIOPSY (WRVU 2.49) performed by David Dejesus MD at [facility] ENDOSCOPY PRO UPPER GI ENDOSCOPY, BIOPSY N/A 07/03/2022 EGD WITH BIOPSY (WRVU 2.49) performed by David Dejesus MD at [facility] ENDOSCOPY PRO UPPER GI ENDOSCOPY, DIAGNOSTIC N/A 04/03/2014 EGD, UPPER GI ENDOSCOPY performed by David Dejesus MD at [facility] ENDOSCOPY PRO UPPER GI ENDOSCOPY, DIAGNOSTIC N/A 03/01/2020 EGD, UPPER GI ENDOSCOPY performed by David Dejesus MD at [facility] ENDOSCOPY PRO UPPER GI ENDOSCOPY, DIAGNOSTIC N/A 09/09/2022 EGD, UPPER GI ENDOSCOPY (WRVU 2.09) performed by Ayo Russ MD at [facility] MAIN OR Social History and Habits: [...] 05/26/2024 1:10 PM [place] [address] Gavin Carrillo MD [facility] [place] [address] 06/05/2024 1:20 PM EST Office Visit Cardiology at [address] [phone] Milagros Hernandez MD [facility] [place] [address] Scheduled Orders Name Type Priority Associated Diagnoses Orde r Schedule IR G-Tube Check/Change Imaging Routine Problem with gastrostomy tube Expected: 04/09/2024, Expires: 10/09/2024 Scheduled Procedures Name Priority Associated Diagnoses Date/Ti me EGD, UPPER GI ENDOSCOPY (WRV U 2.09) Peptic stricture of esophagus documented as of this encounter Visit Diagnoses Diagnosis Problem with gastrostomy tube documented in this encounter Care Teams Communications Professional Relationship Specialty Start Date End Date Ana Gillespie APRN [address] [place] [address] PCP - General Family Medicine 02/03/19 documented as of this encounter
--- OUTSIDE RECORDS SUMMARY | 2024-05-19 20:25 | XMS_ITS | Encounter Summary ---
Author Organization [facility] Address [facility] [place] [address] Care Team Providers Care Skimmer Reverberatory Name Role Phone Ana Gillespie VAUGHN Primary Care Provider Encounter Details Date Type Department Care Team (Late st Contact Info) Description 11/05/2023 8:30 AM EDT - 11/05/2023 9:00 AM EDT [place] [address] David Dejesus MD [facility] [place] [address] EGD-DILATATION BY SOUND OR BOUGIE, SINGLE OR [...] better as expected. Wednesday-Wednesday Same Day Endo [phone] Otherwise contact [phone] and ask to speak to the psychiatric cns battery charger conveyor line Follow-up care is a fam part of [...] 180 tablet 3 10/20/2021 Blood Sugar Diagnostic (G[employer] BagsTOUCH ULTRA TEST) StripIndications:Typ e 2 diabetes mellitus, [...] meter kit. 1 each 0 12/14/2014 Insulin [place], Disposable, (BD INSULIN PEN NEEDLE UF MINI) 31 x 07/23 NeedleIndications:Di abetes mellitus type 2, uncontrolled 1 Device by [facility].(Non-Drug; Combo Route) [...] escorted out of department via wheelchair with /concrete mixer truck driver. documented in this encounter H&P [...] glucose meter kit. 1 each 0 Insulin [place], Disposable, (BD INSULIN PEN NEEDLE UF MINI) 31 x 3/16 Needle 1 Device by [facility].(Non-Drug; Combo Route) [...] 05/26/2024 1:10 PM EST [place] [address] Gavin Carrillo MD [facility] [place] [address] 06/05/2024 1:20 PM EST Office Visit Cardiology at [address] [address] Milagros Hernandez MD [facility] [place] [address] Scheduled Procedures Name Priority Associated Diagnoses Date/Ti me EGD, UPPER GI ENDOSCOPY (WRV U 2.09) Peptic stricture of esophagus documented as of this encounter Procedures Procedure Name Priority Date/Time Associated Diagnosis Comments Up Gi Endoscopy, Dilatn W Guide (32239) 11/05/2023 8:34 AM EDT Peptic stricture of esophagus Dilate Esophagus (68424) 11/05/2023 8:34 AM EDT Peptic stricture of [...] CARE TEST ORDERABLES [facility] [place] [address] documented in this encounter Visit Diagnoses Diagnosis [...] CRNA) documented in this encounter Care Teams Skimmer Reverberatory Relationship Specialty Start Date End Date Ana Gillespie APRN [address] [place] [address] PCP - General Family Medicine 02/03/19 documented as of this encounter
--- OUTSIDE RECORDS SUMMARY | 2024-05-19 20:25 | XMS_ITS | Encounter Summary ---
Author Organization [facility] Address [facility] [place] [address] Care Team Providers Care Door And Arrival Attendant Name Role Phone Ana Gillespie VAUGHN Primary Care Provider [phone] Reason for Visit * Diagnostic Test (Routine) - Closed Specialty Diagnoses / Procedures Referred By Esperanza rodríguez Referred To Contact Radiology Diagnoses Problem with gastrostomy tube Procedures IR G-Tube Check/Change IR GJ-Tube Check/Change Sonny Pearson DO [facility] [place] [address] [facility] [place] [address] Referral ID Status Reason Start Date Expiration Date V isits Requested Visits Authorized [id number] Closed Specialty Service Requested 02/05/2024 08/04/2025 1 1 Encounter Details Date Type Department Care Team (Latest Contact Info) Description 02/07/2024 7:43 AM EDT - 02/07/2024 11:59 PM EDT Hospital [place] [phone] Rio Hill MD [facility] [place] [address] Problem with gastrostomy tube Discharge Disposition: Home [...] or its attachments. INTERVENTIONAL RADIOLOGY PHONE NUMBERS [phone] If you have a NON Low profile feeding tube, call with any questions or concerns. During regular office hours call: [phone]. If it is after regular office hours, weekends or holidays, please call [phone] and ask to speak to the Pressure Tester information security analyst for Interventional Radiology. If you have a low profile ???ESTRELLITA-BARLOW?? feeding tube, please call Dejah Stauffer RN for any issues: [phone]. Revised 02/23/19 documented in this encounter Medications [...] meter kit. 1 each 0 12/14/2014 Insulin [place], Disposable, (BD INSULIN PEN NEEDLE UF MINI) [...] of : 1960 AGE: 63 y.o. Address: [address] [address] (home) Mobile: Telephone Information: Referring Provider: Sonny Pearson REASON FOR VISIT: Order Questions Answers Where will study be performed? [facility] Radiology [120] To be scheduled [...] 05/26/2024 1:10 PM [place] [address] Gavin Carrillo MD [facility] DR INTER[place]ION[place] [address] 06/05/2024 1:20 PM EST Office Visit Cardiology at [address] [address] Milagros Hernandez MD [facility] [place] [address] Scheduled Procedures Name Priority Associated [...] None. Technique: The patient was positioned supine. Special Education Paraeducator imaging was performed with mixed air/contrast injection [...] of a EnFit 16 F gastrostomy tube. liquid hydrogen plant operator: Hang Cooper PA-C Attending of record: Rio Hill MD 02/07/2024 I, Dr. Hill, was not present for this procedure. Rio Hill MD IMG IR ORDERABLES documented in this encounter Visit Diagnoses Diagnosis Problem with gastrostomy tube documented in this encounter Care Teams Door And Arrival Attendant Relationship Specialty Start Date End Date Ana Gillespie APRN [address] [place] [address] PCP - General Family Medicine 02/03/19 documented as of this encounter
--- OUTSIDE RECORDS SUMMARY | 2024-05-19 20:25 | XMS_ITS | Encounter Summary ---
Author Organization [facility] Address [facility] Marly petersen [place] [id number] Care Team Providers Care Clinical Cytogeneticist Name Role Phone Ana Gillespie APRN Primary Care Provider [phone] Encounter Details Date Type Department Care Team [...] 05/26/2024 1:10 PM EST Appointment Radiology at [place] [phone] Gavin Carrillo MD [facility] [place] [address] 06/05/2024 1:20 PM EST Office Visit Cardiology at [address] [address] Milagros Hernandez MD [facility] [place] [address] Scheduled Procedures Name Priority Associated Diagnoses Date/Ti me EGD, UPPER GI ENDOSCOPY (WRV U 2.09) Peptic stricture of esophagus documented as of this encounter Visit Diagnoses Not on filedocumented in this encounter Care Teams Clinical Cytogeneticist Relationship Specialty Start Date End Date Ana Gillespie APRN [address] [place] [address] PCP - General Family Medicine 02/03/19 documented as of this encounter
--- OUTSIDE RECORDS SUMMARY | 2024-05-19 20:25 | XMS_ITS | Encounter Summary ---
Author Organization [facility] [place] [address] Care Team Providers Care Family Nurse Practitioner Name Role Phone Ana Gillespie VAUGHN Primary Care Provider [phone] Encounter Details Date Type Department Care Team (Late st Contact Info) Description 10/27/2023 Telephone Gastroenterology at [facility] [place] [phone] Parris Maravilla Social History Tobacco Use Types [...] - 10/27/2023 11:43 AM EDT Jennifer Irving [id number] Diagnosis/Indication: petic stricture - follow-up dilation in [...] your procedure. Who will likely be your recycler forklift driver truck driver for the procedure? *Please Verify [...] 05/26/2024 1:10 PM [place] [address] Gavin Carrillo MD [facility] DR [place] [address] 06/05/2024 1:20 PM EST Office Visit Cardiology at [address] [address] Milagros Hernandez MD [facility] [place] [address] Scheduled Procedures Name Priority Associated Diagnoses Date/Ti me EGD, UPPER GI ENDOSCOPY (WRV U 2.09) Peptic stricture of esophagus documented as of this encounter Visit Diagnoses Not on filedocumented in this encounter Care Teams Family Nurse Practitioner Relationship Specialty Start Date End Date Ana Gillespie APRN [address] [place] [address] PCP - General Family Medicine 02/03/19 documented as of this encounter
--- OUTSIDE RECORDS SUMMARY | 2024-05-19 20:25 | XMS_ITS | Encounter Summary ---
Author Organization [facility] Address [facility] [place] [address] Care Team Providers Care Icebox Worker Name Role Phone Ana Gillespie VAUGHN Primary Care Provider [phone] Encounter Details Date Type Department Care Team (Late st Contact Info) Description 12/13/2023 Telephone Endocrinology at [place] [phone] Kiko Ashley Social History Tobacco Use Types [...] 05/26/2024 1:10 PM EST Appointment [place] [address] Gavin Carrillo MD [facility] [place] [address] 06/05/2024 1:20 PM EST Office Visit Cardiology at [address] [address] Milagros Hernandez MD [facility] [place] [address] Scheduled Procedures Name Priority Associated Diagnoses Date/Ti me EGD, UPPER GI ENDOSCOPY (WRV U 2.09) Peptic stricture of esophagus documented as of this encounter Visit Diagnoses Not on filedocumented in this encounter Care Teams Icebox Worker Relationship Specialty Start Date End Date Ana Gillespie APRN [address] [place] [address] PCP - General Family Medicine 02/03/19 documented as of this encounter
--- OUTSIDE RECORDS SUMMARY | 2024-05-19 20:25 | XMS_ITS | Encounter Summary ---
Author Organization [facility] Address [facility] [place] [address] Care Team Providers Care Hat Binder Name Role Phone Ana Gillespie GEAR HOBBER SET UP OPERATOR Primary Care Provider [phone] Encounter Details Date Type Department Care Team (Late Contact Info) Description 03/13/2024 Telephone [place] [address] Juice Maxwell RN Social History [...] requesting a call back from NANCY Bruce Roving Sizer because he has specific questionsand requests related to Jennifer's tube feedings. Call back: [phone] Forwarded documented in this encounter Plan of Treatment Upcoming Encounters Date Type Department Care Team (Late Contact Info) Description 05/26/2024 1:10 PM EST Appoint[place] [address] Gavin Carrillo MD [facility] [place] [address] 06/05/2024 1:20 PM EST Office Visit Cardiology at [address] [address] Milagros Hernandez MD [facility] [place] [address] Scheduled Procedures Name Priority Associated Diagnoses Date/Ti me EGD, UPPER GI ENDOSCOPY (WRV U 2.09) Peptic stricture of esophagus documented as of this encounter Visit Diagnoses Not on filedocumented in this encounter Care Teams Hat Binder Relationship Specialty Start Date End Date Ana Gillespie APRN [address] [place] [address] PCP - General Family Medicine 02/03/19 documented as of this encounter
--- OUTSIDE RECORDS SUMMARY | 2024-05-19 20:25 | XMS_ITS | Encounter Summary ---
Author Organization [facility] Address [facility] [place] [address] Care Team Providers Care Demonstrator Electric Gas Appliances Name Role Phone Jose Miguel Ana MENDES Primary Care Provider [phone] Encounter Details Date Type Department Care Team [...] 05/26/2024 1:10 PM EST App[place] [phone] Gavin Carrillo MD [facility] [place] [address] 06/05/2024 1:20 PM EST Office Visit Cardiology at [address] [phone] Milagros Hernandez MD [facility] [place] [address] Scheduled Procedures Name Priority Associated Diagnoses Date/Ti me EGD, UPPER GI ENDOSCOPY (WRV U 2.09) Peptic stricture of esophagus documented as of this encounter Visit Diagnoses Not on filedocumented in this encounter Care Teams Demonstrator Electric Gas Appliances Relationship Specialty Start Date End Date Ana Gillespie APRN [address] [place] [address] PCP - General Family Medicine 02/03/19 documented as of this encounter
--- OUTSIDE RECORDS SUMMARY | 2024-05-19 20:25 | XMS_ITS | Encounter Summary ---
Author Organization [facility] Address [facility] [place] [address] Care Team Providers Care Showplace Manager Name Role Phone Ana Gillespie VAUGHN Primary Care Provider [phone] Encounter Details Date Type Department Care Team (Late st Contact Info) Description 04/03/2024 Telephone Radiology at [place] [phone] Meg Vargas Social History Tobacco Use Types [...] 05/26/2024 1:10 PM EST Appointment [place] [address] Gavin Carrillo MD [facility] [place] [address] 06/05/2024 1:20 PM EST Office Visit Cardiology at [address] [phone] Milagros Hernandez MD [facility] [place] [address] Scheduled Procedures Name Priority Associated Diagnoses Date/Ti me EGD, UPPER GI ENDOSCOPY (WRV U 2.09) Peptic stricture of esophagus documented as of this encounter Visit Diagnoses Not on filedocumented in this encounter Care Teams Showplace Manager Relationship Specialty Start Date End Date Ana Gillespie APRN [address] [place] [address] PCP - General Family Medicine 02/03/19 documented as of this encounter
--- OUTSIDE RECORDS SUMMARY | 2024-05-19 20:25 | XMS_ITS | Encounter Summary ---
Author Organization [facility] Address [facility] [place] [address] Care Team Providers Care Tool Supervisor Name Role Phone Ana Gillespie APRN Primary Care Provider [phone] Encounter Details Date Type Department Care Team (Late Contact Info) Description 01/19/2024 Telephone [place] [address] Chiquita James, RN Social [...] regarding her tube feed. States he called [facility] today for supplies for her and was told her case has been closed requestingan order for her tube feed to resume be sent to [facility]. Forwarded documented in this encounter Plan of Treatment Upcoming Encounters Date Type Department Care Team (Late Contact Info) Description 05/26/2024 1:10 PM EST Appointment [place] [address] Gavin Carrillo MD [facility] [place]ION[place] [address] 06/05/2024 1:20 PM EST Office Visit Cardiology at [address] [phone] Milagros Hernandez MD [facility] [place] [address] Scheduled Procedures Name Priority Associated Diagnoses Date/Ti me EGD, UPPER GI ENDOSCOPY (WRV U 2.09) Peptic stricture of esophagus documented as of this encounter Visit Diagnoses Not on filedocumented in this encounter Care Teams Tool Supervisor Relationship Specialty Start Date End Date Ana Gillespie APRN [address] [place] [address] PCP - General Family Medicine 02/03/19 documented as of this encounter
--- OUTSIDE RECORDS SUMMARY | 2024-05-19 20:25 | XMS_ITS | Encounter Summary ---
Author Organization [facility] [place] [address] Care Team Providers Care Hospice Coordinator Name Role Phone Ana Gillespie VAUGHN Primary Care Provider [phone] Encounter Details Date Type Department Care Team (Late st Contact Info) Description 03/16/2024 Telephone [place] [address] Chiquita James, RN Social History [...] 05/26/2024 1:10 PM [place] [address] Gavin Carrillo MD [facility] DR INTERVENTIONAL [place] [address] 06/05/2024 1:20 PM EST Office Visit Cardiology at [address] [address] Milagros Hernandez MD [facility] [place] [address] Scheduled Procedures Name Priority Associated Diagnoses Date/Ti me EGD, UPPER GI ENDOSCOPY (WRV U 2.09) Peptic stricture of esophagus documented as of this encounter Visit Diagnoses Not on filedocumented in this encounter Care Teams Hospice Coordinator Relationship Specialty Start Date End Date Ana Gillespie APRN [address] [place] [address] PCP - General Family Medicine 02/03/19 documented as of this encounter
--- OUTSIDE RECORDS SUMMARY | 2024-05-19 20:25 | XMS_ITS | Encounter Summary ---
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 Milagros Hernandez with possible complex surgery pending, eval for risk stratification Geronimo Mojica MD [facility] [place] [address] Milagros Hernandez MD [facility] [place] [address] Referral ID Status Reason Start Date Expiration Date Visits Requested Visits Authorized [id number] Authorized Consult Only 12/20/2023 12/19/2024 1 1 Encounter Details Date Type Department Care Team (Late st Contact Info) Description 12/20/2023 Orders [place] [address] Deborah Gallo PA [facility] [place] [address] Esophageal stricture; Gastroesophageal reflux disease, unspecified whether [...] 05/26/2024 1:10 PM [place] [address] Gavin Carrillo MD [facility] [place] [address] 06/05/2024 1:20 PM EST Office Visit Cardiology at [address] [phone] Milagros Hernandez MD [facility] [place] [address] Scheduled Procedures Name Priority Associated Diagnoses Date/Ti [...] esophagus documented in this encounter Care Teams Broadcast Operations Technician Relationship Specialty Start Date End Date Ana Gillespie APRN [address] [place] [address] PCP - General Family Medicine 02/03/19 documented as of this encounter
--- OUTSIDE RECORDS SUMMARY | 2024-05-19 20:25 | XMS_ITS | Encounter Summary ---
Author Organization [facility] Address [facility] [place] [address] Care Team Providers Care Vp Project Name Role Phone Ana Gillespie VAUGHN Primary Care Provider [phone] Reason for Visit * Reason Comments Establish Care Dysphagia Encounter Details Date Type Department Care Team (Late st Contact Info) Description 12/07/2023 2:00 PM EDT Office Visit [place] [address] Richard Diallo MD [facility] [place] [address] History of chronic pancreatitis; Esophageal stricture Social [...] Outpatient Consultation Note MD Alla Kirk PA-C [place] [address] FAX: Date of Consultation: 12/07/2023 This consultation has been requested by PCP: Ana Gillespie APRN Referring Physician: Ana Gillespie APRN [address] [place] [id number] Purpose for Consultation: esophageal stricture HPI: Jenniferanne [...] is a former smoker with an approximate [id number] history, quit 4 years ago. She adamantly denies alcohol use or history of alcohol use and denies recreational drug use despite the documentation throughout her chart. 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 She states she is active during the [...] IR G-Tube Check/Change 11/27/2022 Hang Cooper, ROSLYN [facility] INTERVENTIONL RAD IR G-TUBE CHECK/CHANGE 03/10/2023 IR G-Tube Check/Change 03/10/2023 Richard Chambers DO [facility] INTERVENTIONL RAD IR G-TUBE CHECK/CHANGE 04/06/2023 IR G-Tube Check/Change 04/06/2023 Gavin Carrillo MD [facility] INTERVENTIONL RAD IR G-TUBE CHECK/CHANGE 05/09/2023 IR G-Tube Check/Change [facility] INTERVENTIONL RAD IR G-TUBE CHECK/CHANGE 07/09/2023 IR G-Tube Check/Change [facility] INTERVENTIONL RAD IR G-TUBE CHECK/CHANGE 09/17/2023 IR G-Tube Check/Change 09/17/2023 Hang Cooper PA [facility] INTERVENTIONL RAD IR G-TUBE CHECK/CHANGE 10/14/2023 IR G-Tube Check/Change 10/14/2023 Moustapha Hart MD [facility] INTERVENTIONL RAD IR G-TUBE PLACEMENT 09/11/2022 IR G-Tube Placement 09/11/2022 Moustapha Hart MD [facility] INTERVENTIONL RAD IR SUTURE RELEASE 09/25/2022 IR Suture Release 09/25/2022 Yoselin Ghosh PA [facility] INTERVENTIONL RAD PERCUTANEOUS GASTROSTOMY N/A 09/11/2022 PERCUTANEOUS GASTROSTOMY performed by Aiden Flores MD at [facility] CATY PRO COLONOSCOPY, BIOPSY N/A 03/20/2016 COLONOSCOPY FLEXIBLE, WITH BX performed by David Dejesus MD at [facility] ENDOSCOPY PRO COLONOSCOPY, DIAGNOSTIC N/A 03/01/2020 COLONOSCOPY, DIAGNOSTIC performed by David Dejesus MD at [facility] ENDOSCOPY PRO DILATE ESOPHAGUS N/A 11/05/2023 EGD-DILATATION BY SOUND OR BOUGIE, SINGLE OR MULTIPLE PASSES (WRVU 1.28) performed by David Dejesus MD at [facility] ENDOSCOPY PRO ENDOSCOPIC US EXAM, ESOPH N/A 03/31/2022 UPPER EUS- ENDOSCOPIC ULTRASOUND performed by David Dejesus MD at [facility] ENDOSCOPY PRO UP GI ENDOSCOPY, BALL DIL, 30MM N/A 12/24/2022 EGD,WITH DILATION ESOPHAGUS WITH BALLOON,< 30 MM (WRVU 2.67) performed by David Dejesus MDat [facility] ENDOSCOPY PRO UP GI ENDOSCOPY, BALL DIL, 30MM N/A 01/12/2023 EGD,WITH DILATION ESOPHAGUS WITH BALLOON,< 30 MM (WRVU 2.67) performed by David Dejesus [facility] ENDOSCOPY PRO UP GI ENDOSCOPY, BALL DIL, 30MM N/A 02/26/2023 EGD,WITH DILATION ESOPHAGUS WITH BALLOON,< 30 MM (WRVU 2.67) performed by David Dejesus [facility] ENDOSCOPY PRO UP GI ENDOSCOPY, BALL DIL, 30MM N/A 03/16/2023 EGD,WITH DILATION ESOPHAGUS WITH BALLOON,< 30 MM (WRVU 2.67) performed by David Dejesus [facility] ENDOSCOPY PRO UP GI ENDOSCOPY, BALL DIL, 30MM N/A 03/30/2023 EGD,WITH DILATION ESOPHAGUS WITH BALLOON,< 30 MM (WRVU 2.67) performed by David Dejesus [facility] ENDOSCOPY PRO UP GI ENDOSCOPY, BALL DIL, 30MM N/A 04/30/2023 EGD,WITH DILATION ESOPHAGUS WITH BALLOON,< 30 MM (WRVU 2.67) performed by David Dejesus [facility] ENDOSCOPY PRO UP GI ENDOSCOPY, BALL DIL, 30MM N/A 06/01/2023 EGD,WITH DILATION ESOPHAGUS WITH BALLOON,< 30 MM (WRVU 2.67) performed by David Dejesus [facility] ENDOSCOPY PRO UP GI ENDOSCOPY, BALL DIL, 30MM N/A 08/02/2023 EGD,WITH DILATION ESOPHAGUS WITH BALLOON,< 30 MM (WRVU 2.67) performed by David Dejesus [facility] ENDOSCOPY PRO UP GI ENDOSCOPY, DILATN W GUIDE N/A 10/07/2023 EGD-ESOPHOGEAL DILATATION OVER GUIDE WIRE (WRVU 2.91) performed by David Dejesus MD at [facility] ENDOSCOPY PRO UP GI ENDOSCOPY, DILATN W GUIDE N/A 11/05/2023 EGD-ESOPHOGEAL DILATATION OVER GUIDE WIRE (WRVU 2.91) performed by David Dejesus MD at [facility] ENDOSCOPY PRO UPPER GI ENDOSCOPY, BIOPSY N/A 04/03/2014 UPPER GASTROINTESTINAL ENDOSCOPY,WITH BIOPSY SINGLE OR MULTIPLE performed by David Dejesus [facility] ENDOSCOPY PRO UPPER GI ENDOSCOPY, BIOPSY N/A 03/20/2016 EGD WITH BIOPSY performed by David Dejesus MD at [facility] ENDOSCOPY PRO UPPER GI ENDOSCOPY, BIOPSY N/A 11/22/2018 EGD WITH BIOPSY (WRVU 2.49) performed by David Dejesus MD at [facility] ENDOSCOPY PRO UPPER GI ENDOSCOPY, BIOPSY N/A 03/01/2020 UPPER GASTROINTESTINAL ENDOSCOPY,WITH BIOPSY SINGLE OR MULTIPLE (WRVU 2.49) performed by David Dejesus MD at [facility] ENDOSCOPY PRO UPPER GI ENDOSCOPY, BIOPSY N/A 09/23/2021 EGD WITH BIOPSY (WRVU 2.49) performed by David Dejesus MD at [facility] ENDOSCOPY PRO UPPER GI ENDOSCOPY, BIOPSY N/A 03/31/2022 EGD WITH BIOPSY (WRVU 2.49) performed by David Dejesus MD at [facility] ENDOSCOPY PRO UPPER GI ENDOSCOPY, BIOPSY N/A 07/03/2022 EGD WITH BIOPSY (WRVU 2.49) performed by David Dejesus MD at [facility] ENDOSCOPY PRO UPPER GI ENDOSCOPY, DIAGNOSTIC N/A 04/03/2014 EGD, UPPER GI ENDOSCOPY performed by David Dejesus MD at [facility] ENDOSCOPY PRO UPPER GI ENDOSCOPY, DIAGNOSTIC N/A 03/01/2020 EGD, UPPER GI ENDOSCOPY performed by David Dejesus MD at [facility] ENDOSCOPY PRO UPPER GI ENDOSCOPY, DIAGNOSTIC N/A 09/09/2022 EGD, UPPER GI ENDOSCOPY (WRVU 2.09) performed by Ayo Russ MD at [facility] MAIN OR Medications: Outpatient Medications Marked [...] glucose meter kit. 1 each 0 Insulin Zarephath, Disposable, (BD INSULIN PEN NEEDLE UF MINI) [...] questions Alla Bowden PA-C 12/07/2023 Thoracic Surgery [facility] I have seen the patient [...] 05/26/2024 1:10 PM [place] [address] Gavin Carrillo MD [facility] [address] INTERVENTIONAL [place] [address] 06/05/2024 1:20 PM EST Office Visit Cardiology at [place] [phone] Milagros Hernandez MD [facility] [place] [address] Scheduled Orders Name Type Priority Associated Diagnoses Orde r Schedule Lipase Lab Routine History of chronic pancreatitis [...] esophagus documented in this encounter Care Teams Vp Project Relationship Specialty Start Date End Date Ana Gillespie APRN [address] [place] [address] PCP - General Family Medicine 02/03/19 documented as of this encounter
--- OUTSIDE RECORDS SUMMARY | 2024-05-19 20:25 | XMS_ITS | Encounter Summary ---
Author Organization [facility] Address [facility] [place] [address] Care Team Providers Care Legal Transcriber Name Role Phone Ana Gillespie VAUGHN Primary Care Provider [phone] Encounter Details Date Type Department Care Team (Latest Contact Info) Description 12/07/2023 12:24 PM EDT - 12/07/2023 11:59 PM EDT Hospital En[place] [phone] Hypoxemia Discharge Disposition: Home Social History Tobacco [...] meter kit. 1 each 0 12/14/2014 Insulin Donald, Disposable, (BD INSULIN PEN NEEDLE UF MINI) [...] 05/26/2024 1:10 PM EST [place] [address] Gavin Carrillo MD [facility] [place] [address] 06/05/2024 1:20 PM EST Office Visit Cardiology at [address] [phone] Milagros Hernandez MD [facility] [place] [address] Scheduled Procedures Name Priority Associated Diagnoses Date/Ti [...] PFT FEV1/FVC Pre-BD Z-Score -0.14 COMPAS PFT YJL60-69 Actual Pre-BD 1.66 % COMPAS PFT NJZ14-57 Predicted 1.94 % COMPAS PFT AGV97-46 Pre-BD % of Predicted 86 % COMPAS PFT WTC35-10 Pre-BD Z-Score -0.41 COMPAS PFT DLCO Hb [...] Hypoxemia documented in this encounter Care Teams Legal Transcriber Relationship Specialty Start Date End Date Ana Gillespie APRN [address] [place] [address] PCP - General Family Medicine 02/03/19 documented as of this encounter
--- OUTSIDE RECORDS SUMMARY | 2024-05-19 20:25 | XMS_ITS | Encounter Summary ---
Author Organization [facility] [place] [address] Care Team Providers Care Sociology Instructor Name Role Phone Ana Gillespie VAUGHN Primary Care Provider [phone] Reason for Visit * Reason Comments Medication Refill Encounter Details Date Type Department Care Team (Late st Contact Info) Description 12/13/2023 Refill [place] [phone] Elsie Erickson [facility] [place] [address] Social History Tobacco Use Types Packs/Day Years [...] call and schedule as pt doesn't have [facility] available. documented in this encounter Plan of Treatment Upcoming Encounters Date Type Department Care Team (Late st Contact Info) Description 05/26/2024 1:10 PM EST [place] [address] Gavin Carrillo MD [facility] [place] [address] 06/05/2024 1:20 PM EST Office Visit Cardiology at [address] [phone] Milagros Hernandez MD [facility] [place] [address] Scheduled Procedures Name Priority Associated Diagnoses Date/Ti me EGD, UPPER GI ENDOSCOPY (WRV U 2.09) Peptic stricture of esophagus documented as of this encounter Visit Diagnoses Not on filedocumented in this encounter Care Teams Sociology Instructor Relationship Specialty Start Date End Date Ana Gillespie APRN [address] [place] [address] PCP - General Family Medicine 02/03/19 documented as of this encounter
--- OUTSIDE RECORDS SUMMARY | 2024-05-19 20:25 | XMS_ITS | Encounter Summary ---
Author Organization [facility] [place] [address] Care Team Providers Care Gas Distribution And Emergency Clerk Name Role Phone Ana Gillespie APRN Primary Care Provider [phone] Encounter Details Date Type Department Care Team (Late st Contact Info) Description 11/05/2023 Orders [place] [address] [facility] [place] [address] Peptic stricture of esophagus Social History Tobacco [...] 05/26/2024 1:10 PM EST [place] [address] [facility] [place] [address] 06/05/2024 1:20 PM EST Office Visit Cardiology at [address] [phone] [facility] [address] Scheduled Orders Name Type Priority Associated Diagnoses [...] esophagus documented in this encounter Care Teams Gas Distribution And Emergency Clerk Relationship Specialty Start Date End Date Ana Gillespie APRN [address] [place] [address] PCP - General Family Medicine 02/03/19 documented as of this encounter
--- OUTSIDE RECORDS SUMMARY | 2024-05-19 20:25 | XMS_ITS | Encounter Summary ---
Author Organization [facility] [place] [address] Care Team Providers Care Disassembler Name Role Phone Ana Gillespie VAUGHN Primary Care Provider [phone] Encounter Details Date Type Department Care Team (Late st Contact Info) Description 03/07/2024 Telephone Cardiology at [address] [phone] Chiquis Jean, RN Social History Tobacco Use [...] EDT TC from Dr Chacon, hospitalist, with [facility], [facility]. Dr Chi states Mrs Irving's Blood Pressure [...] who states his is an inpatient, at [facility], due to hip surgery, and she is [...] 05/26/2024 1:10 PM [place] [address] Gavin Carrillo MD [facility] [place] [address] 06/05/2024 1:20 PM EST Office Visit Cardiology at [address] [phone] Milagros Hernandez MD [facility] [place] [address] Scheduled Procedures Name Priority Associated Diagnoses Date/Ti me EGD, UPPER GI ENDOSCOPY (WRV U 2.09) Peptic stricture of esophagus documented as of this encounter Visit Diagnoses Not on filedocumented in this encounter Care Teams Disassembler Relationship Specialty Start Date End Date Ana Gillespie APRN [address] [place] [address] PCP - General Family Medicine 02/03/19 documented as of this encounter
--- OUTSIDE RECORDS SUMMARY | 2024-05-19 20:25 | XMS_ITS | Encounter Summary ---
Author Organization [facility] Address [facility] [place] [address] Care Team Providers Care Director Of Convention Services Name Role Phone Ana Gillespie APRN Primary Care Provider [phone] Reason for Visit * Reason Onset Date Comments Medication Refill 03/23/2024 Encounter Details Date Type Department Care Team (Late st Contact Info) Description 03/23/2024 Refill Gastroenterology at [place] [phone] David Dejesus MD [facility] [place] [address] Peptic stricture of esophagus Social History Tobacco [...] 05/26/2024 1:10 PM EST [place] [address] Gavin Carrillo MD [facility] INTERVENTIONAL RADIOLOGY [place], [place] [phone] 06/05/2024 1:20 PM EST Office Visit Cardiology at [address] [phone] Milagros Hernandez MD [facility] [place] [address] Scheduled Procedures Name Priority Associated Diagnoses Date/Ti me EGD, UPPER GI ENDOSCOPY (WRV U 2.09) Peptic stricture of esophagus documented as of this encounter Visit Diagnoses Diagnosis Peptic stricture of esophagus Stricture and stenosis of esophagus documented in this encounter Care Teams Director Of Convention Services Relationship Specialty Start Date End Date Ana Gillespie APRN [address] [place] [address] PCP - General Family Medicine 02/03/19 documented as of this encounter
--- OUTSIDE RECORDS SUMMARY | 2024-05-19 20:25 | XMS_ITS | Encounter Summary ---
Author Organization [facility] Address [facility] [place] [address] Care Team Providers Care Geographic Information System Analyst Name Role Phone Jose Miguel Ana MENDES Primary Care Provider [phone] Encounter Details Date Type Department Care Team [...] 05/26/2024 1:10 PM EST Appointment [place] [phone] Gavin Carrillo MD [facility] INTERVENTIONAL [place] [address] 06/05/2024 1:20 PM EST Office Visit Cardiology at [address] [phone] Milagros Hernandez MD [facility] [place] [address] Scheduled Procedures Name Priority Associated Diagnoses Date/Ti me EGD, UPPER GI ENDOSCOPY (WRV U 2.09) Peptic stricture of esophagus documented as of this encounter Visit Diagnoses Not on filedocumented in this encounter Care Teams Geographic Information System Analyst Relationship Specialty Start Date End Date Ana Gillespie APRN [address] [place] [address] PCP - General Family Medicine 02/03/19 documented as of this encounter
--- OUTSIDE RECORDS SUMMARY | 2024-05-19 20:25 | XMS_ITS | Encounter Summary ---
Author Organization Counts Include [facility] Address [facility] [place] [address] Care Team Providers Care Marketing Automation Analyst Name Role Phone Ana Gillespie APRN Primary Care Provider [phone] Encounter Details Date Type Department Care Team (Late st Contact Info) Description 11/05/2023 8:36 AM EDT Anesthesia Event [place] [phone] Daryl Carmona MD [facility] DR [place] [address] Anesthesia Record Procedure Summary Procedure Name Responsible [...] by Sergey Jordan RN PIV 11/05/23; 0745; [id number] catheter system; 22 gauge, 1 in length; [...] Procedure Summary Date: 11/05/23 Room / Location: [facility] ENDO 2 / [facility] ENDOSCOPY Anesthesia Start: 36 Anesthesia Stop: 909 Procedures: EGD-DILATATION BY SOUND OR BOUGIE, SINGLE OR MULTIPLE PASSES (WRVU 1.28) (Trunk) EGD-ESOPHOGEAL DILATATION OVER GUIDE WIRE (WRVU 2.91) Diagnosis: Peptic stricture of esophagus (petic stricture - follow-up dilation in 2-3 weeks) Surgeons: David Dejesus MD Responsible Provider: Daryl Carmona MD Anesthesia Type: general ASA Status: 2 All Anesthesia Providers: Anesthesiologist: Daryl Carmona MD MEMBER SERVICE SPECIALIST: Annie Alfonso CRNA Vitals Value Taken Time BP 125/64 11/05/23 0920 Temp Pulse Resp 16 11/05/23 0902 SpO2 97 % 11/05/23 0940 Pain Level 0 11/05/23 0902 Vitals shown include unfiled device data. Patient [facility]: [facility] [...] y.o. female. Procedure(s): EGD, [facility] Patient Active Problem List [facility]?? IR G-TUBE CHECK/CHANGE 03/10/2023 IR G-Tube Check/Change 03/10/2023 Geronimo Chambers, MH INTERVENTIONL RAD ??? IR G-TUBE CHECK/CHANGE 04/06/2023 IR G-Tube Check/Change 04/06/2023 Gavin Carrillo MD [facility] INTERVENTIONL RAD ??? IR G-TUBE CHECK/CHANGE 05/09/2023 IR G-Tube Check/Change [facility] INTERVENTIONL RAD ??? IR G-TUBE CHECK/CHANGE 07/09/2023 IR G-Tube Check/Change [facility] INTERVENTIONL RAD ??? IR G-TUBE CHECK/CHANGE 09/17/2023 IR G-Tube Check/Change 09/17/2023 Hang Cooper, ROSLYN [facility] INTERVENTIONL RAD ??? IR G-TUBE CHECK/CHANGE 10/14/2023 IR G-Tube Check/Change 10/14/2023 Moustapha Hart MD [facility] INTERVENTIONL [...] David Dejesus [facility] ENDOSCOPY ??? PRO UP GI ENDOSCOPY, BALL DIL, 30MM N/A 01/12/2023 EGD,WITH DILATION ESOPHAGUS WITH BALLOON,< 30 MM (WRVU 2.67) performed by David Dejesus [facility] ENDOSCOPY ??? PRO UP GI ENDOSCOPY, BALL DIL, 30MM N/A 02/26/2023 EGD,WITH DILATION ESOPHAGUS WITH BALLOON,< 30 MM (WRVU 2.67) performed by David Dejesus [facility] ENDOSCOPY ??? PRO UP GI ENDOSCOPY, BALL DIL, 30MM N/A 03/16/2023 EGD,WITH DILATION ESOPHAGUS WITH BALLOON,< 30 MM (WRVU 2.67) performed by David Dejesus [facility] ENDOSCOPY ??? PRO UP GI ENDOSCOPY, BALL DIL, 30MM N/A 03/30/2023 EGD,WITH DILATION ESOPHAGUS WITH BALLOON,< 30 MM (WRVU 2.67) performed by David Dejesus [facility] ENDOSCOPY ??? PRO UP GI ENDOSCOPY, BALL DIL, 30MM N/A 04/30/2023 EGD,WITH DILATION ESOPHAGUS WITH BALLOON,< 30 MM (WRVU 2.67) performed by David Dejesus [facility] ENDOSCOPY ??? PRO UP GI ENDOSCOPY, BALL DIL, 30MM N/A 06/01/2023 EGD,WITH DILATION ESOPHAGUS WITH BALLOON,< 30 MM (WRVU 2.67) performed by David Dejesus [facility] ENDOSCOPY ??? PRO UP GI ENDOSCOPY, BALL DIL, 30MM N/A 08/02/2023 EGD,WITH DILATION ESOPHAGUS WITH BALLOON,< 30 MM (WRVU 2.67) performed by David Dejesus [facility] ENDOSCOPY ??? PRO UP GI ENDOSCOPY, DILATN W GUIDE N/A 10/07/2023 EGD-ESOPHOGEAL DILATATION OVER GUIDE WIRE (WRVU 2.91) performed by David Dejesus MD at [facility] ENDOSCOPY ??? PRO UPPER GI ENDOSCOPY, BIOPSY N/A 04/03/2014 UPPER GASTROINTESTINAL ENDOSCOPY,WITH BIOPSY SINGLE OR MULTIPLE performed by David Dejesus [facility] ENDOSCOPY ??? PRO UPPER GI ENDOSCOPY, BIOPSY [...] there has been no significant change. Planning [facility] Region - Other Informed Consent: Anesthetic plan and risks discussed with patient. Use of blood products discussed with patient who consented to blood products. Plan discussed with MEMBER SERVICE SPECIALIST. Anesthesia Screening documented in this encounter Plan of Treatment Upcoming Encounters Date Type Department Care Team (Late st Contact Info) Description 05/26/2024 1:10 PM EST [place] [phone] Gavin Carrillo MD [facility] DR INTERVENTION[place] [address] 06/05/2024 1:20 PM EST Office Visit Cardiology at [address] [phone] Milagros Hernandez MD [facility] [place] [address] Scheduled Procedures Name Priority Associated Diagnoses Date/Ti [...] mg documented in this encounter Care Teams Marketing Automation Analyst Relationship Specialty Start Date End Date Ana Gillespie APRN [address] [place] [address] PCP - General Family Medicine 02/03/19 documented as of this encounter
--- OUTSIDE RECORDS SUMMARY | 2024-05-19 20:25 | XMS_ITS | Encounter Summary ---
Author Organization [facility] Address [facility] [place] [address] Care Team Providers Care Repairer Engine Production Name Role Phone Ana Gillespie APRN Primary Care Provider [phone] Encounter Details Date Type Department Care Team (Late st Contact Info) Description 03/20/2024 Telephone [place] [phone] [facility] [place] [address] Social History Tobacco Use Types Packs/Day Years [...] and he didn't receive the correct supplies. [facility] is calling him again to see what supplies needed for monthly shipment and Rogelio wants to make sure orders are correct. Will verify with PAGE. He will call back if any issues. documented in this encounter Plan of Treatment Upcoming Encounters Date Type Department Care Team (Late st Contact Info) Description 05/26/2024 1:10 PM [place] [phone] Gavin Crarillo MD [facility] DR [place] [address] 06/05/2024 1:20 PM EST Office Visit Cardiology at [address] [phone] Milagros Hernandez MD [facility] [place] [place] [address] Scheduled Procedures Name Priority Associated Diagnoses Date/Ti me EGD, UPPER GI ENDOSCOPY (WRV U 2.09) Peptic stricture of esophagus documented as of this encounter Visit Diagnoses Not on filedocumented in this encounter Care Teams Repairer Engine Production Relationship Specialty Start Date End Date Ana Gillespie APRN [address] [place] [address] PCP - General Family Medicine 02/03/19 documented as of this encounter
--- OUTSIDE RECORDS SUMMARY | 2024-05-19 20:25 | XMS_ITS | Encounter Summary ---
Author Organization [facility] [place] [address] Care Team Providers Care Detonator Maker Name Role Phone Ana Gillespie APRN Primary Care Provider [phone] Encounter Details Date Type Department Care Team (Late st Contact Info) Description 02/05/2024 Orders Only Radiology at [facility] [place] [address] Sonny Pearson DO [facility] [address] Problem with gastrostomy tube Social History Tobacco [...] IR G-Tube Check/Change 11/27/2022 Hang Cooper PA [facility] INTERVENTIONL RAD IR G-TUBE CHECK/CHANGE 03/10/2023 IR G-Tube Check/Change 03/10/2023 Geronimo Chambers DO [facility] INTERVENTIONL RAD IR G-TUBE CHECK/CHANGE 04/06/2023 IR G-Tube Check/Change 04/06/2023 Gavin Carrillo MD [facility] INTERVENTIONL RAD IR G-TUBE CHECK/CHANGE 05/09/2023 IR G-Tube Check/Change [facility] INTERVENTIONL RAD IR G-TUBE CHECK/CHANGE 07/09/2023 IR G-Tube Check/Change [facility] INTERVENTIONL RAD IR G-TUBE CHECK/CHANGE 09/17/2023 IR G-Tube Check/Change 09/17/2023 Hang Cooper PA [facility] INTERVENTIONL RAD IR G-TUBE CHECK/CHANGE 10/14/2023 IR G-Tube Check/Change 10/14/2023 Moustapha Hart MD [facility] INTERVENTIONL RAD IR G-TUBE PLACEMENT 09/11/2022 IR G-Tube Placement 09/11/2022 Moustapha Hart MD [facility] INTERVENTIONL RAD IR SUTURE RELEASE 09/25/2022 IR Suture Release 09/25/2022 Yoselin Ghosh PA [facility] INTERVENTIONL RAD PERCUTANEOUS GASTROSTOMY N/A 09/11/2022 PERCUTANEOUS GASTROSTOMY performed by Aiden Flores MD at [facility] CATY PRO COLONOSCOPY, BIOPSY N/A 03/20/2016 COLONOSCOPY FLEXIBLE, WITH BX performed by David Dejesus MD at [facility] ENDOSCOPY PRO COLONOSCOPY, DIAGNOSTIC N/A 03/01/2020 COLONOSCOPY, DIAGNOSTIC performed by David Dejesus MD at [facility] ENDOSCOPY PRO DILATE ESOPHAGUS N/A 11/05/2023 EGD-DILATATION BY SOUND OR BOUGIE, SINGLE OR MULTIPLE PASSES (WRVU 1.28) performed by David Dejesus MD at [facility] ENDOSCOPY PRO ENDOSCOPIC US EXAM, ESOPH N/A 03/31/2022 UPPER EUS- ENDOSCOPIC ULTRASOUND performed by David Dejesus MD at [facility] ENDOSCOPY PRO UP GI ENDOSCOPY, BALL DIL, 30MM N/A 12/24/2022 EGD,WITH DILATION ESOPHAGUS WITH BALLOON,< 30 MM (WRVU 2.67) performed by David Dejesus MDat [facility] ENDOSCOPY PRO UP GI ENDOSCOPY, BALL DIL, 30MM N/A 01/12/2023 EGD,WITH DILATION ESOPHAGUS WITH BALLOON,< 30 MM (WRVU 2.67) performed by David Dejesus MDat [facility] ENDOSCOPY PRO UP GI ENDOSCOPY, BALL DIL, 30MM N/A 02/26/2023 EGD,WITH DILATION ESOPHAGUS WITH BALLOON,< 30 MM (WRVU 2.67) performed by David Dejesus MDat [facility] ENDOSCOPY PRO UP GI ENDOSCOPY, BALL DIL, 30MM N/A 03/16/2023 EGD,WITH DILATION ESOPHAGUS WITH BALLOON,< 30 MM (WRVU 2.67) performed by David Dejesus [facility] ENDOSCOPY PRO UP GI ENDOSCOPY, BALL DIL, 30MM N/A 03/30/2023 EGD,WITH DILATION ESOPHAGUS WITH BALLOON,< 30 MM (WRVU 2.67) performed by David Dejesus [facility] ENDOSCOPY PRO UP GI ENDOSCOPY, BALL DIL, 30MM N/A 04/30/2023 EGD,WITH DILATION ESOPHAGUS WITH BALLOON,< 30 MM (WRVU 2.67) performed by David Dejesus [facility] ENDOSCOPY PRO UP GI ENDOSCOPY, BALL DIL, 30MM N/A 06/01/2023 EGD,WITH DILATION ESOPHAGUS WITH BALLOON,< 30 MM (WRVU 2.67) performed by David Dejesus [facility] ENDOSCOPY PRO UP GI ENDOSCOPY, BALL DIL, 30MM N/A 08/02/2023 EGD,WITH DILATION ESOPHAGUS WITH BALLOON,< 30 MM (WRVU 2.67) performed by Daivd Dejesus [facility] ENDOSCOPY PRO UP GI ENDOSCOPY, DILATN W GUIDE N/A 10/07/2023 EGD-ESOPHOGEAL DILATATION OVER GUIDE WIRE (WRVU 2.91) performed by David Dejesus MD at [facility] ENDOSCOPY PRO UP GI ENDOSCOPY, DILATN W GUIDE N/A 11/05/2023 EGD-ESOPHOGEAL DILATATION OVER GUIDE WIRE (WRVU 2.91) performed by David Dejesus MD at [facility] ENDOSCOPY PRO UPPER GI ENDOSCOPY, BIOPSY N/A 04/03/2014 UPPER GASTROINTESTINAL ENDOSCOPY,WITH BIOPSY SINGLE OR MULTIPLE performed by [facility] PRO UPPER GI ENDOSCOPY, BIOPSY N/A 03/20/2016 EGD WITH BIOPSY performed by David Dejesus MD at [facility] ENDOSCOPY PRO UPPER GI ENDOSCOPY, BIOPSY N/A 11/22/2018 EGD WITH BIOPSY (WRVU 2.49) performed by David Dejesus MD at [facility] ENDOSCOPY PRO UPPER GI ENDOSCOPY, BIOPSY N/A 03/01/2020 UPPER GASTROINTESTINAL ENDOSCOPY,WITH BIOPSY SINGLE OR MULTIPLE (WRVU 2.49) performed by David Dejesus MD at [facility] ENDOSCOPY PRO UPPER GI ENDOSCOPY, BIOPSY N/A 09/23/2021 EGD WITH BIOPSY (WRVU 2.49) performed by David Dejesus MD at [facility] ENDOSCOPY PRO UPPER GI ENDOSCOPY, BIOPSY N/A 03/31/2022 EGD WITH BIOPSY (WRVU 2.49) performed by David Dejesus MD at [facility] ENDOSCOPY PRO UPPER GI ENDOSCOPY, BIOPSY N/A 07/03/2022 EGD WITH BIOPSY (WRVU 2.49) performed by David Dejesus MD at [facility] ENDOSCOPY PRO UPPER GI ENDOSCOPY, DIAGNOSTIC N/A 04/03/2014 EGD, UPPER GI ENDOSCOPY performed by David Dejesus MD at [facility] ENDOSCOPY PRO UPPER GI ENDOSCOPY, DIAGNOSTIC N/A 03/01/2020 EGD, UPPER GI ENDOSCOPY performed by David Dejesus MD at [facility] ENDOSCOPY PRO UPPER GI ENDOSCOPY, DIAGNOSTIC N/A 09/09/2022 EGD, UPPER GI ENDOSCOPY (WRVU 2.09) performed by Ayo Russ MD at [facility] MAIN OR Medications: Current Outpatient [...] glucose meter kit. 1 each 0 Insulin [place], Disposable, (BD INSULIN PEN NEEDLE UF MINI) [...] procedure) Assessment: 63 y.o. female presents to [facility] for G Tube exchange. Last exchange [...] [place] [address] Gavin Carrillo MD [facility] [place] [address] 06/05/2024 1:20 PM EST Office Visit Cardiology at [address] [phone] Milagros Hernandez MD [facility] [place] [address] Scheduled Procedures Name Priority Associated Diagnoses Date/Ti me EGD, UPPER GI ENDOSCOPY (WRV U 2.09) Peptic stricture of esophagus documented as of this encounter Visit Diagnoses Diagnosis Problem with gastrostomy tube documented in this encounter Care Teams Detonator Maker Relationship Specialty Start Date End Date Ana Gillespie APRN [address] [place] [address] PCP - General Family Medicine 02/03/19 documented as of this encounter
--- OUTSIDE RECORDS SUMMARY | 2024-05-19 20:25 | XMS_ITS | Encounter Summary ---
Author Organization [facility] Address [facility] [place] [address] Care Team Providers Care Office Electrician Name Role Phone Ana Gillespie VAUGHN Primary Care Provider [phone] Encounter Details Date Type Department Care Team (Late st Contact Info) Description 03/09/2024 [place] [phone] Milagros Hernandez MD [facility] [place] [address] Social History Tobacco Use Types Packs/Day Years [...] EDT I called Dr. Denney, Hospitalist at [facility] this afternoon at his request to discuss [...] 05/26/2024 1:10 PM EST App[place] [address] Gavin Carrillo MD [facility] [place] [address] 06/05/2024 1:20 PM EST Office Visit Cardiology at [address] [phone] Milagros Hernandez MD [facility] [place] [place] [address] Scheduled Procedures Name Priority Associated Diagnoses Date/Ti me EGD, UPPER GI ENDOSCOPY (WRV U 2.09) Peptic stricture of esophagus documented as of this encounter Visit Diagnoses Not on filedocumented in this encounter Care Teams Office Electrician Relationship Specialty Start Date End Date Ana Gillespie APRN [address] [place] [address] PCP - General Family Medicine 02/03/19 documented as of this encounter
--- OUTSIDE RECORDS SUMMARY | 2024-05-19 20:25 | XMS_ITS | Encounter Summary ---
Author Organization [facility] Address [facility] [place] [address] Care Team Providers Care Evaporative Cooler Installer Name Role Phone Ana Gillespie VAUGHN Primary Care Provider [phone] Encounter Details Date Type Department Care Team (Latest Contact Info) Description 11/05/2023 6:41 AM EDT - 11/05/2023 9:54 AM EDT Hospital Encounter [place] [address] David Dejesus MD [facility] [place] [address] Discharge Disposition: Home Social History Tobacco Use [...] better as expected. Wednesday-Wednesday Same Day Endo [phone] Otherwise contact [phone] and ask to speak to the embroidery patternmaker reconditioner Follow-up care is a fam part of [...] meter kit. 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 documented in this encounter H&P [...] glucose meter kit. 1 each 0 Insulin [place], Disposable, (BD INSULIN PEN NEEDLE UF MINI) [...] 05/26/2024 1:10 PM EST [place] [address] Gavin Carrillo MD [facility] [place] [address] 06/05/2024 1:20 PM EST Office Visit Cardiology at [address] [phone] Milagros Hernandez MD [facility] [place] [address] Scheduled Procedures Name Priority Associated Diagnoses Date/Ti me EGD, UPPER GI ENDOSCOPY (WRV U 2.09) Peptic stricture of esophagus documented as of this encounter Procedures Procedure Name Priority Date/Time Associated Diagnosis Comments Up Gi Endoscopy, Dilatn W Guide (39546) 11/05/2023 8:34 AM EDT Peptic stricture of esophagus Dilate Esophagus (94160) 11/05/2023 8:34 AM EDT Peptic stricture of esophagus POCT GLUCOSE Routine 11/05/2023 7:50 AM EDT documented in this encounter Results * POCT Glucose (11/05/2023 7:50 AM EDT) Glucose, POC 86 65 - 199 mg/dL [facility] Comment: Supplemental ranges: <140 mg/dL before meals <180 mg/dL all other times of the day Blood 11/05/2023 7:50 AM EDT 11/05/2023 7:50 AM EDT David Dejesus MD POINT OF CARE TEST ORDERABLES [facility] [place] [address] documented in this encounter Visit Diagnoses Not [...] CRNA) documented in this encounter Care Teams Evaporative Cooler Installer Relationship Specialty Start Date End Date Ana Gillespie APRN [address] [place] [address] PCP - General Family Medicine 02/03/19 documented as of this encounter
--- OUTSIDE RECORDS SUMMARY | 2024-05-19 20:25 | XMS_ITS | Encounter Summary ---
Author Organization [facility] [place] [address] Care Team Providers Care Sales And Training Specialist Name Role Phone Ana Gillespie APRN Primary Care Provider [phone] Encounter Details Date Type Department Care Team (Late st Contact Info) Description 10/25/2023 Orders [place] [address] David Dejesus MD [facility] [place] [address] Peptic stricture of esophagus Social History Tobacco [...] 05/26/2024 1:10 PM EST [place] [address] Gavin Carrillo MD [facility] [place] [address] 06/05/2024 1:20 PM EST Office Visit Cardiology at [address] [phone] Milagros Hernandez MD [facility] [place] [address] Scheduled Orders Name Type Priority Associated Diagnoses [...] esophagus documented in this encounter Care Teams Sales And Training Specialist Relationship Specialty Start Date End Date Ana Gillespie APRN [address] [place] [address] PCP - General Family Medicine 02/03/19 documented as of this encounter
--- OUTSIDE RECORDS SUMMARY | 2024-05-19 20:25 | XMS_ITS | Encounter Summary ---
Author Organization [facility] [place] [address] Care Team Providers Care Warehouse Delivery Manager Name Role Phone Ana Gillespie VAUGHN Primary Care Provider [phone] Encounter Details Date Type Department Care Team (Late st Contact Info) Description 03/02/2024 Telephone Cardiology at [address] [phone] Nicole Guillory RN Social History Tobacco Use [...] She had her hip surgery done at [facility] this week. He is concerned as [...] Giron. No other concerns at this time. Nciole Guillory RN, BSN Ambulatory Cardiology Department documented in this encounter Plan of Treatment Upcoming Encounters Date Type Department Care Team (Late st Contact Info) Description 05/26/2024 1:10 PM EST Appointment Radiology at [place] [phone] Gavin Carrillo MD [facility] [place] [address] 06/05/2024 1:20 PM EST Office Visit Cardiology at [address] [phone] Milagros Hernandez MD [facility] [place] [address] Scheduled Procedures Name Priority Associated Diagnoses Date/Ti me EGD, UPPER GI ENDOSCOPY (WRV U 2.09) Peptic stricture of esophagus documented as of this encounter Visit Diagnoses Not on filedocumented in this encounter Care Teams Warehouse Delivery Manager Relationship Specialty Start Date End Date Ana Gillespie APRN [address] [place] [address] PCP - General Family Medicine 02/03/19 documented as of this encounter
--- OUTSIDE RECORDS SUMMARY | 2024-05-19 20:25 | XMS_ITS | Clinical Summary ---
Author Organization [facility] Address [facility] [place] [address] Care Team Providers Care Attendant Sales Name Role Phone Ana Gillespie VAUGHN Primary Care Provider [phone] Allergies Active Allergy Reactions Criticality Noted Date Comments Meperidine Hcl Nausea And Vomiting Low CIS - violently ill Metformin Other (See Comments) Low 09/23/2021 Severe diarrhea Medications Medication Sig Dispensed Refills Start Date End Date Status Insulin [place], Disposable, (BD INSULIN PEN NEEDLE UF [...] Care Team Description 04/03/2024 Telephone Radiology at [address] Meg Vargas 04/02/2024 Notes [place] [address] Leon Morales DO 03/23/2024 Refill [place] [address] David Dejesus MD Peptic stricture of esophagus 03/20/2024 Telephone Gastroenterology at [place] [phone] 03/16/2024 Telephone Gastroenterology at [place] [phone] Chiquita James, RN 03/13/2024 Telephone [place] [address] Juice Maxwell, RN 03/09/2024 Telephone Cardiology [place] [phone] Milagros Hernandez MD 03/08/2024 [place] [address] Nicole Guillory RN 03/07/2024 [place] [address] Chiquis Jean RN 03/03/2024 11:49 AM EDT - 03/03/2024 11:59 PM EDT Hospital Encounter Mobile Echocardiography [place] [phone] Bandar Guerra MD Hypotension, unspecified hypotension type; HFrEF (heart failure with reduced ejection fraction) Discharge Disposition: Home 03/02/2024 Telephone Cardiology at [place] [phone] Nicole Guillory RN 03/02/2024 [place] [address] Milagros Hernandez MD 02/23/2024 [place] [address] 02/23/2024 [place] [address] from Last 3 Months Family History Medical [...] 05/26/2024 1:10 PM [place] [address] Gavin Carrillo MD [facility] [place] [address] 06/05/2024 1:20 PM EST Office Visit Cardiology at [address] [address] Milagros Hernandez MD [facility] [address] Scheduled Procedures Name Priority Associated Diagnoses Date/Ti me EGD, UPPER GI ENDOSCOPY (WRV U 2.09) Peptic stricture of esophagus Health Maintenance Due Date Last Done Comments CT Colonography 1960 FIT DNA 1960 FIT 1960 Sigmoidoscopy 1960 DM Opthalmology Exam 1970 HIV screen 1978 Hepatitis C Screening 1978 Pneumococcal Vaccine: At-Ris k 5-64yrs (1 of 2 - PCV) 1979 Tetanus/Diphtheria/Pertussis Vaccines (1 - Tdap) 1979 HPV [...] history exists Medical Devices Implanted Type Area Bend Sorter Device Identifier Shelf Expiration Date Model / Serial / Lot Other Implanted:Qty: 3 Other Left: Hip Description:three screws lef t hip Procedures Procedure Name Priority Date/Time Associated Diagnosis Comments ECHO COMPLETE Routine 03/03/2024 12:52 PM EDT Hypotension, unspecified hypotension type HFrEF (heart failure with reduced ejection fraction) BASIC METABOLIC PANEL Routine 09/25/2022 3:11 AM [...] EDT Narrative 03/03/2024 1:08 PM EDT 1 [place] [address] ? Echocardiogram Report Name: ISHAN LEONG ? Study Date: 03/03/2024 09:49 AMBP: 116/55 mmHg : 1960 ? Height: 155 cm ? Account: [id number] Age: 63 yrs ? Weight: 76 kg Gender: Female ?BSA: 1.8 m2 Ordering Physician: BANDAR GUERRA Referring Physician: BANDAR GUERRA Performed By: MARGAUX Reason For Study: HFrEF Exam Location: [facility]. Interpretation Summary -Left ventricle is of [...] LV systolic function has significantly improved. Procedure Complete-93235. Suboptimal quality. This study is limited because [...] Note Patric Calderon MD - 03/03/2024 1 [facility] [place] [address] Echocardiogram Report Name: ISHAN LEONG Study Date:03/03/2024 09:49 AMBP: 116/55 mmHg : 1960 Height: 155 cm Account: [id number] Age: 63 yrs Weight: 76 kg Gender: Female BSA: 1.8 m2 Ordering Physician: BANDAR GUERRA Referring Physician: BANDAR GUERRA Performed By: MARGAUX Reason For Study: HFrEF Exam Location: [facility]. Interpretation Summary -Left ventricle is of [...] 08/19/2022, LV systolic function hassignificantly improved. Procedure Complete-56525. Suboptimal quality. This study is limited because [...] 15-16diffuse Bandar Guerra MD ECHO ORDERABLES * (ABNORMAL) Basic Metabolic Panel (non-fasting) (09/25/2022 3:11 AM EDT) Glucose 187 65 - 199 mg/dL [facility] Comment:Diabetes: >=200 mg/d L plus symptoms Blood Urea Nitrogen 32(H) 8 - 18 mg/dL [facility] Creatinine 0.62(L) 0.70 - 1.20 mg/dL [facility] Sodium 142 135 - 145 mmol/L [facility] Potassium 4.6 3.5 - 5.0 mmol/L [facility] Comment: Please note: ??Patients with WBC >100,000 may have falsely elevated Potassium levels. ??For accurate Potassium quantification in these patients send serum separator tube (gold top) for subsequent determinations. ??Contact the Clinical Chemistry Laboratory if there are any questions. Chloride 103 98 - 107 mmol/L [facility] Carbon Dioxide 31 22 - 31 mmol/L [facility] Anion Gap 8 5 - 15 mmol/L [facility] Calcium 9.8 8.5 - 10.5 mg/dL [facility] Est Glomerular Filtration Rate 101 >=60 mL/min/1. 73 m?? [facility] Comment: This patient's estimated [...] In Lab Geronimo Pascal MD CHEMISTRY ORDERABLES [facility] [place] [address] * Lipid Panel (Reflex Direct LDL) (08/29/2022 4:48 AM EDT) Cholesterol, Total 110 mg/dL [facility] Comment: Lower Risk: <200 mg/dL Average Risk: 200-239 mg/dL Higher Risk: >ja=879 mg/dL Triglyceride 127 mg/dL [facility] Comment: Average Risk/Lower Risk: <150 mg/dL Borderline High Risk: 150-199 mg/dL High Risk: 200-499 mg/dL Very High Risk: >fs=343 mg/dL HDL Cholesterol 34 mg/dL [facility] Comment: Males: ?? Higher Risk: <40 mg/dL Females: ?? Higher Risk: <50 mg/dL LDL Cholesterol 51 mg/dL [facility] Comment: Lowest Risk: <100 mg/dL Lower Risk: 100-129 mg/dL Borderline High Risk: 130-159 mg/dL High Risk: 160-189 mg/dL Very High Risk: >rr=582 mg/dL Cholesterol/HDL Ratio 3.2 ratio [facility] Lipid Interpretation See Note [facility] Comment: Lipid management should be guided by a patient? s ASCVD risk, goals and preferences. ACC/AHA Guidelines recommend high intensity statin if clinical ASCVD or LDL greater than or equal to 190 mg/dL. http://tinyurl.com/XRJ-ISR-Pgwzyvbjp Adults aged 40-75 with LDL 70-189 mg/dL should have their 10 year ASCVD risk estimated with the ACC/AHA ASCVD risk oyster harvester http://tools.acc.org/NYOEB-Anwn-Powsfngdx/ Statin should be discussed if risk greater [...] Hernandez MD CHEMISTRY ORDERABLES Performing Organization Address City/State/[facility] Co de Phone Number [facility] [place] [address] * (ABNORMAL) Hemoglobin A1c (08/15/2022 3:05 AM EDT) Hemoglobin A1c 6.2(H) 4.3 - 5.6 % [facility] Comment: Reference Range: 4.3 - [...] Mellitus, Diabetes Care 2013; 36: Suppl. 1, F25-35 Estimated Average Glucose 130 mg/dL [facility] Comment: eAG equivalents for HbA1c [...] into estimated average glucose values. ??Diabetes Care 2008:31(8):1712-2319. Blood 08/15/2022 3:05 AM EDT 08/15/2022 3:16 AM EDT Narrative Resulting Agency Comment Spec In Lab Carlos Terry MD CHEMISTRY ORDERABLES [facility] [place] [address] * COLONOSCOPY (03/01/2020 7:22 AM EDT) [facility] Signature COLONOSCOPY [facility] Endoscopy Procedure Date: 03/01/2020 7:22 AM ? Patient Name: Ishan Leong ? N: [id number] ? Date of : 1960 ? Age: 59 ? Order #: [id number] ? Instrument Name: [id number] ? Procedure: ? Colonoscopy Indications: ? Screening for colorectal malignant ? neoplasm Providers: ? David Dejesus MD, Elizabeth Celis, ? ERI, Eligio Sadler RN Referring : ?Ana Young [...] PROVATION 03/01/2020 7:22 AM EDT Ana Gillespie FINISHER [employer] GENERAL SURGICAL ORD ERABLES Performing Organization Address [facility] Co de Phone Number PROVATION * Microalbumin, urine, random (12/13/2014 12:33 PM EDT) Creatinine, Urine 284 mg/dL [facility] R[facility]ILLEN[facility] Albumin, Urine 258.4 mg/L CERNE R MILLENNIUM Albumin / Creatinin Ratio, Urine 91 mcg/mg Cr [facility] Comment: Reference Range* Random collection (mcg/mg creatinine) Normal ?<30 Microalbuminuria ?? 30 - 300 Clinical Albuminuria ?? >300 *[place] [employer]. Diabetic Nephropathy. Diabetes Care 1997;(Suppl 1):S24-S27 Exercise within 24 hour, infection, fever, CHF, marked hyperglycemia, and marked hypertension may elevate urinary albumin excretion over baseline values. Urine specimen (specimen) 12/13/2014 12:33 PM EDT 12/13/2014 12:39 PM EDT Narrative Resulting Agency Comment Spec In Lab Bandar Agosto MD URINE ORDERABLES Performing Organization Address [facility] de Phone Number DARCY [place] * Mammography Screen Eduadr 2D Bilateral (07/02/2014 1:12 PM EST) Anatomical [...] the breast imaging center. Symone Garcia APRN [facility] MAMMO ORDERAB LES from Last 3 Months or Most Recently Relevant to Health Maintenance Advance Directives Documents on File Type Date Recorded Patient Marketing Associate Expl anation Advance Directives and Dominic sandoval [...] Status decision made by: Patient Care Teams Attendant Sales Relationship Specialty Start Date End Date Ana Gillespie APRN [address] [place] [address] PCP - General Family Medicine 02/03/19
--- OUTSIDE RECORDS SUMMARY | 2024-05-19 20:25 | XMS_ITS | Encounter Summary ---
Author Organization [facility] Address [facility] [place] [address] Care Team Providers Care Patient Registration Manager Name Role Phone Ana Gillespie VAUGHN Primary Care Provider [phone] Encounter Details Date Type Department Care Team (Late st Contact Info) Description 03/02/2024 [place] [phone] Milagros Hernandez MD [facility] [place] [address] Social History Tobacco Use Types Packs/Day Years [...] - 03/02/2024 3:19 PM EDT I called [facility] ICU today and spoke with Dr. Giron [...] 05/26/2024 1:10 PM EST [place] [address] Gavin Carrillo MD [facility] [place] [address] 06/05/2024 1:20 PM EST Office Visit Cardiology at [address] [address] Milagros Hernandez MD [facility] [place] [address] Scheduled Procedures Name Priority Associated Diagnoses Date/Ti me EGD, UPPER GI ENDOSCOPY (WRV U 2.09) Peptic stricture of esophagus documented as of this encounter Visit Diagnoses Not on filedocumented in this encounter Care Teams Patient Registration Manager Relationship Specialty Start Date End Date Ana Gillespie APRN [address] [place] [address] PCP - General Family Medicine 02/03/19 documented as of this encounter
--- OUTSIDE RECORDS SUMMARY | 2024-05-19 20:26 | XMS_ITS | Encounter Summary ---
Author Organization [facility] [place] [address] Care Team Providers Care Upholstery Mechanic Name Role Phone Ana Gillespie VAUGHN Primary Care Provider [phone] Reason for Referral * Diagnostic Test (Routine) - Closed Specialty Diagnoses / Procedures Referred By Esperanza rodríguez Referred To Contact Radiology Diagnoses Neuroleptic-induced parkinsonism Procedures IR G-Tube Check/Change Fannie Conde PA [facility] [place] [address] [place] [address] Referral ID Status Reason Start Date Expiration Date V isits Requested Visits Authorized [id number] Closed Specialty Service Requested 07/06/2023 01/03/2025 1 1 Encounter Details Date Type Department Care Team (Late st Contact Info) Description 07/06/2023 Notes [place] [address] Fannie Conde PA [facility] [place] [address] Social History Tobacco Use Types Packs/Day Years [...] catheter with tube feeds, [facility]-tube. Patient's reports that she was evaluated at [facility] for possible PNA, and the G-tube [...] glucose meter kit. 1 each 0 Insulin [place], Disposable, (BD INSULIN PEN NEEDLE UF MINI) [...] IR G-Tube Check/Change 11/27/2022 Hang Cooper PA [facility] INTERVENTIONL RAD IR G-TUBE CHECK/CHANGE 03/10/2023 IR G-Tube Check/Change 03/10/2023 Geronimo Chambers DO [facility] INTERVENTIONL RAD IR G-TUBE CHECK/CHANGE 04/06/2023 IR G-Tube Check/Change 04/06/2023 Gavin Carrillo MD [facility] INTERVENTIONL RAD IR G-TUBE CHECK/CHANGE 05/09/2023 IR G-Tube Check/Change [facility] INTER[facility]ION[facility] RAD IR G-TUBE PLACEMENT 09/11/2022 IR G-Tube Placement 09/11/2022 Moustapha Hart MD [facility] INTERVENTIONL RAD IR SUTURE RELEASE 09/25/2022 IR Suture Release 09/25/2022 Yoselin Ghosh PA [facility] INTERVENTIONL RAD PERCUTANEOUS GASTROSTOMY N/A 09/11/2022 PERCUTANEOUS GASTROSTOMY performed by Aiden Flores MD at [facility] CATY PRO COLONOSCOPY, BIOPSY N/A 03/20/2016 COLONOSCOPY FLEXIBLE, WITH BX performed by David Dejesus MD at [facility] ENDOSCOPY PRO COLONOSCOPY, DIAGNOSTIC N/A 03/01/2020 COLONOSCOPY, DIAGNOSTIC performed by David Dejesus MD at [facility] ENDOSCOPY PRO ENDOSCOPIC US EXAM, ESOPH N/A 03/31/2022 UPPER EUS- ENDOSCOPIC ULTRASOUND performed by David Dejesus MD at [facility] ENDOSCOPY PRO UP GI ENDOSCOPY, BALL DIL, 30MM N/A 12/24/2022 EGD,WITH DILATION ESOPHAGUS WITH BALLOON,< 30 MM (WRVU 2.67) performed by David Dejesus MDat [facility] ENDOSCOPY PRO UP GI ENDOSCOPY, BALL DIL, 30MM N/A 01/12/2023 EGD,WITH DILATION ESOPHAGUS WITH BALLOON,< 30 MM (WRVU 2.67) performed by David Dejesus [facility] ENDOSCOPY PRO UP GI ENDOSCOPY, BALL DIL, 30MM N/A 02/26/2023 EGD,WITH DILATION ESOPHAGUS WITH BALLOON,< 30 MM (WRVU 2.67) performed by David Dejesus [facility] ENDOSCOPY PRO UP GI ENDOSCOPY, BALL DIL, 30MM N/A 03/16/2023 EGD,WITH DILATION ESOPHAGUS WITH BALLOON,< 30 MM (WRVU 2.67) performed by David Dejesus [facility] ENDOSCOPY PRO UP GI ENDOSCOPY, BALL DIL, 30MM N/A 03/30/2023 EGD,WITH DILATION ESOPHAGUS WITH BALLOON,< 30 MM (WRVU 2.67) performed by David Dejesus [facility] ENDOSCOPY PRO UP GI ENDOSCOPY, BALL DIL, 30MM N/A 04/30/2023 EGD,WITH DILATION ESOPHAGUS WITH BALLOON,< 30 MM (WRVU 2.67) performed by David Dejesus [facility] ENDOSCOPY PRO UP GI ENDOSCOPY, BALL DIL, 30MM N/A 06/01/2023 EGD,WITH DILATION ESOPHAGUS WITH BALLOON,< 30 MM (WRVU 2.67) performed by David Dejesus [facility] ENDOSCOPY PRO UPPER GI ENDOSCOPY, BIOPSY N/A 04/03/2014 UPPER GASTROINTESTINAL ENDOSCOPY,WITH BIOPSY SINGLE OR MULTIPLE performed by David Dejesus [facility] ENDOSCOPY PRO UPPER GI ENDOSCOPY, BIOPSY N/A 03/20/2016 EGD WITH BIOPSY performed by David Dejesus MD at [facility] ENDOSCOPY PRO UPPER GI ENDOSCOPY, BIOPSY N/A 11/22/2018 EGD WITH BIOPSY (WRVU 2.49) performed by David Dejesus MD at [facility] ENDOSCOPY PRO UPPER GI ENDOSCOPY, BIOPSY N/A 03/01/2020 UPPER GASTROINTESTINAL ENDOSCOPY,WITH BIOPSY SINGLE OR MULTIPLE (WRVU 2.49) performed by David Dejesus MD at [facility] ENDOSCOPY PRO UPPER GI ENDOSCOPY, BIOPSY N/A 09/23/2021 EGD WITH BIOPSY (WRVU 2.49) performed by David Dejesus MD at [facility] ENDOSCOPY PRO UPPER GI ENDOSCOPY, BIOPSY N/A 03/31/2022 EGD WITH BIOPSY (WRVU 2.49) performed by David Dejesus MD at [facility] ENDOSCOPY PRO UPPER GI ENDOSCOPY, BIOPSY N/A 07/03/2022 EGD WITH BIOPSY (WRVU 2.49) performed by David Dejesus MD at [facility] ENDOSCOPY PRO UPPER GI ENDOSCOPY, DIAGNOSTIC N/A 04/03/2014 EGD, UPPER GI ENDOSCOPY performed by David Dejesus MD at [facility] ENDOSCOPY PRO UPPER GI ENDOSCOPY, DIAGNOSTIC N/A 03/01/2020 EGD, UPPER GI ENDOSCOPY performed by David Dejesus MD at [facility] ENDOSCOPY PRO UPPER GI ENDOSCOPY, DIAGNOSTIC N/A 09/09/2022 EGD, UPPER GI ENDOSCOPY (WRVU 2.09) performed by Ayo Russ MD at [facility] MAIN OR Social History and Habits: [...] 05/26/2024 1:10 PM EST [place] [phone] Gavin Carrillo MD [facility] [place] [address] 06/05/2024 1:20 PM EST Office Visit Cardiology at [address] [phone] Milagros Hernandez MD [facility] CARDIOLOGY [place], [place] [phone] Scheduled Procedures Name Priority Associated Diagnoses Date/Ti [...] procedure was performed under fluoroscopic guidance. ??A software release manager fluoroscopic image was obtained. ??Contrast was injected through the gastrostomy catheter and another fluoroscopic image was obtained. ??Through the catheter, an 0.035 Amplatz wire was advanced. ??The catheter was removed. ??Over the wire, a new 16-Fr tgn-rin-cuqmgzn (ESTRELLITA) gastrostomy catheter was advanced. ??The retention [...] freely than typical. Exchange for new 16-Fr aut-woi-lhthtvb (ESTRELLITA) gastrostomy catheter within the stomach; retention [...] Parkinsonism documented in this encounter Care Teams Upholstery Mechanic Relationship Specialty Start Date End Date Ana Gillespie APRN [address] [place] [address] PCP - General Family Medicine 02/03/19 documented as of this encounter
--- OUTSIDE RECORDS SUMMARY | 2024-05-19 20:26 | XMS_ITS | Encounter Summary ---
[place] [address] Care Team Providers Care Water Supply Engineer Name Role Phone Ana Gillespie VAUGHN Primary Care Provider [phone] Reason for Referral * Diagnostic Test (Routine) - Closed Specialty Diagnoses / Procedures Referred By Esperanza rodríguez Referred To Contact Radiology Diagnoses Problem with gastrostomy tube Procedures IR Site Check In Recovery Room Fannie Conde PA [facility] [place] [address] [facility] [place] [address] Referral ID Status Reason Start Date Expiration Date V isits Requested Visits Authorized [id number] Closed Specialty Service Requested 09/17/2023 03/19/2025 1 1 Reason for Visit * Diagnostic Test (Routine) - Closed Specialty Diagnoses / Procedures Referred By Esperanza rodríguez Referred To Contact Radiology Diagnoses Problem with gastrostomy tube Procedures IR Site Check In Recovery Room Fannie Conde PA [facility] [place] [address] [facility] [place] [address] Referral ID Status Reason Start Date Expiration Date V isits Requested Visits Authorized [id number] Closed Specialty Service Requested 09/17/2023 03/19/2025 1 1 Encounter Details Date Type Department Care Team (Latest Contact Info) Description 09/17/2023 11:00 AM EDT - 09/17/2023 11:54 AM EDT Hospital Encounter [place] [phone] Geronimo Chambers, [facility] [place] [address] Problem with gastrostomy tube Discharge Disposition: Home [...] 180 tablet 3 10/20/2021 Blood Sugar Diagnostic (CaptualTOUCH ULTRA TEST) StripIndications:Typ e 2 diabetes mellitus, [...] meter kit. 1 each 0 12/14/2014 Insulin [place], Disposable, (BD INSULIN PEN NEEDLE UF MINI) [...] 05/26/2024 1:10 PM EST Appointment [place] [phone] Gavin Carrillo MD [facility] [place] [address] 06/05/2024 1:20 PM EST Office Visit Cardiology at [address] [phone] Milagros Hernandez MD [facility] [place] [address] Scheduled Procedures Name Priority Associated Diagnoses Date/Ti [...] external disk positioned at 4 cm marker. farm operator: Hang Cooper PA-C Attending of record: Geronimo Chambers DO. I was not present. ?? 09/17/2023 Geronimo Chambers DO IMG IR ORDERABLES documented in this encounter Visit Diagnoses Diagnosis Problem with gastrostomy tube documented in this encounter Care Teams Water Supply Engineer Relationship Specialty Start Date End Date Ana Gillespie APRN [address] [place] [address] PCP - General Family Medicine 02/03/19 documented as of this encounter
--- OUTSIDE RECORDS SUMMARY | 2024-05-19 20:26 | XMS_ITS | Encounter Summary ---
Author Organization Formerly [facility] Address [facility] [place] [address] Care Team Providers Care Radiology Practitioner Assistant Name Role Phone Ana Gillespie VAUGHN Primary Care Provider [phone] Encounter Details Date Type Department Care Team (Latest Contact Info) Description 08/02/2023 8:59 AM EDT - 08/02/2023 12:45 PM EDT Hospital En[place] [phone] David Dejesus MD [facility] [place] [address] Discharge Disposition: Home Social History Tobacco Use [...] the day after the procedure, use an dmtt-rcn-vkpiadv spray to numb your throat. Sucking on [...] occurs, please contact your Doctor. Please call [phone] before 8pm Mon-Fri with problems, questions or concerns. If you call after 8pm or on weekends, call the Hospital at [phone] and ask to speak to the Children'S Literature Professor welding production supervisor and the materials handling equipment operator will contact that person for you. When should you call for help? Call [phone] anytime you think you may need emergency [...] learn more? [facility] View your After Visit Summary and more online at [email or web address] If you would like to provide feedback about your hospital experience, please call the Office of Patient and Family Relations at . If you have received this After Visit Summary in error, please immediately return it in person to the department, or notify the [facility] Privacy Office by calling toll free at between the hours of 8AM and 5PM to arrange for our retrieval of the documents at no cost to you. Content Version: 12.2 ?? 6934-3100 [employer]. Care instructions adapted under license by [facility]. If you have questions about a medical condition or this instruction, always ask your healthcare professional. [employer] disclaims any warranty or liability for your [...] the day after the procedure, use an juhn-mtr-awwovwt spray to numb your throat. Sucking on [...] occurs, please contact your Doctor. Please call [phone] before 8pm Mon-Fri with problems, questions or concerns. If you call after 8pm or on weekends, call the Hospital at [phone] and ask to speak to the Children'S Literature Professor welding production supervisor and the materials handling equipment operator will contact that person for you. [...] learn more? [facility] View your After Visit Summary and more online at [email or web address] If you would like to provide feedback about your hospital experience, please call the Office of Patient and Family Relations at . If you have received this After Visit Summary in error, please immediately return it in person to the department, or notify the [facility] Privacy Office by calling toll free at between the hours of 8AM and 5PM to arrange for our retrieval of the documents at no cost to you. Content Version: 12.2 ?? 0812-0474 [employer]. Care instructions adapted under license by [facility]. If you have questions about a medical condition or this instruction, always ask your healthcare professional. [employer] disclaims any warranty or liability for your [...] meter kit. 1 each 0 12/14/2014 Insulin [place], Disposable, (BD INSULIN PEN NEEDLE UF MINI) [...] 05/26/2024 1:10 PM [place] [address] Gavin Carrillo MD [facility] [place] [address] 06/05/2024 1:20 PM EST Office Visit Cardiology at [address] [phone] Milagros Hernandez MD [facility] [place] [address] Scheduled Procedures Name Priority Associated Diagnoses Date/Ti me EGD, UPPER GI ENDOSCOPY (WRV U 2.09) Peptic stricture of esophagus documented as of this encounter Procedures Procedure Name Priority Date/Time Associated Diagnosis Comments Up Gi Endoscopy, Ball Dil, 30Mm (81712) 08/02/2023 11:01 AM EDT Peptic stricture of esophagus UPPER GI ENDOSCOPY Routine 08/02/2023 10 :49 AM EDT POCT GLUCOSE Routine 08/02/2023 9:54 AM EDT documented in this encounter Results * UPPER GI ENDOSCOPY (08/02/2023 10:49 AM EDT) Pathologist [facility] UPPER GI ENDOSCOPY [facility] Endoscopy Procedure Date: 08/02/2023 10:49 AM ? Patient Name: Jennifer Irving ? Date of : 1960 ? Age: 63 ? Order #: [id number] ? Instrument Name: [id number] ? Procedure: ? Upper GI endoscopy Indications: [...] 08/02/2023 10:4 9 AM EDT Ana Gillespie PAN DEVULCANIZER GENERAL SURGICAL ORD ERABLES PROVATION * POCT Glucose (08/02/2023 9:54 AM EDT) Glucose, POC 81 65 - 199 mg/dL [facility] Comment: Supplemental ranges: <140 mg/dL before meals <180 mg/dL all other times of the day Blood 08/02/2023 9:54 AM EDT 08/02/2023 9:54 AM EDT David Dejesus MD POINT [place] [address] documented in this encounter Visit Diagnoses Not [...] documented in this encounter Care Teams Radiology Practitioner Assistant Relationship Specialty Start Date End Date Ana Gillespie APRN [address] [place] [address] PCP - General Family Medicine 02/03/19 documented as of this encounter
--- OUTSIDE RECORDS SUMMARY | 2024-05-19 20:26 | XMS_ITS | Encounter Summary ---
[place] [address] Care Team Providers Care Graves Registration Specialist Name Role Phone Ana Gillespie VAUGHN Primary Care Provider [phone] Reason for Visit * Reason Onset Date Comments Prior Authorization 07/21/2023 Encounter Details Date Type Department Care Team (Late st Contact Info) Description 07/21/2023 Telephone [place] [address] Radha Urena Prior Authorization Social History Tobacco [...] 05/26/2024 1:10 PM [place] [address] Gavin Carrillo MD [facility] [place] [address] 06/05/2024 1:20 PM EST Office Visit Cardiology at [address] [address] Milagros Hernandez MD [facility] [place] [address] Scheduled Procedures Name Priority Associated Diagnoses Date/Ti me EGD, UPPER GI ENDOSCOPY (WRV U 2.09) Peptic stricture of esophagus documented as of this encounter Visit Diagnoses Not on filedocumented in this encounter Care Teams Graves Registration Specialist Relationship Specialty Start Date End Date Ana Gillespie APRN [address] [place] [address] PCP - General Family Medicine 02/03/19 documented as of this encounter
--- OUTSIDE RECORDS SUMMARY | 2024-05-19 20:26 | XMS_ITS | Encounter Summary ---
Author Organization [facility] Address [facility] Marly petersen [place] [id number] Care Team Providers Care Inventory Controller Name Role Phone Ana Gillespie APRN [...] 05/26/2024 1:10 PM EST Appointment Radiology at [place] [phone] Gavin Carrillo MD [facility] [place] [address] 06/05/2024 1:20 PM EST Office Visit Cardiology at [address] [address] Milagros Hernandez MD [facility] [place] [address] Scheduled Procedures Name Priority Associated Diagnoses Date/Ti me EGD, UPPER GI ENDOSCOPY (WRV U 2.09) Peptic stricture of esophagus documented as of this encounter Visit Diagnoses Not on filedocumented in this encounter Care Teams Inventory Controller Relationship Specialty Start Date End Date Ana Gillespie APRN [address] [place] [address] PCP - General Family Medicine 02/03/19 documented as of this encounter
--- OUTSIDE RECORDS SUMMARY | 2024-05-19 20:26 | XMS_ITS | Encounter Summary ---
Author Organization [facility] [place] [address] Care Team Providers Care Service Desk Lead Name Role Phone Ana Gillespie VAUGHN Primary Care Provider [phone] Encounter Details Date Type Department Care Team (Late st Contact Info) Description 07/04/2023 External Results [place] [address] Social History Tobacco Use Types [...] 05/26/2024 1:10 PM EST Appointment [place] [address] Gavin Carrillo MD [facility] [place] [address] 06/05/2024 1:20 PM EST Office Visit Cardiology at [address] [phone] Milagros Hernandez MD [facility] [address] Scheduled Procedures Name Priority Associated Diagnoses Date/Ti [...] filedocumented in this encounter Care Teams Service Desk Lead Relationship Specialty Start Date End Date Ana Gillespie APRN [address] [place] [address] PCP - General Family Medicine 02/03/19 documented as of this encounter
--- OUTSIDE RECORDS SUMMARY | 2024-05-19 20:26 | XMS_ITS | Encounter Summary ---
Author Organization [facility] Address [facility] [place] [address] Care Team Providers Care Utility Manager Name Role Phone Ana Gillespie APRN Primary Care Provider [phone] Reason for Visit * Reason Onset Date Comments Medication Refill 07/12/2023 Encounter Details Date Type Department Care Team (Late st Contact Info) Description 07/12/2023 Refill Cardiology at [address] [phone] Milagros Hernandez MD [facility] [place] [place] [address] Medication Refill Social History Tobacco Use Types [...] 05/26/2024 1:10 PM EST Appointment [place] [address] Gavin Carrillo MD [facility] INTERVENTIONAL RADIOLOGY [place], [place] [id number] 06/05/2024 1:20 PM EST Office Visit Cardiology at [address] [phone] Milagros Hernandez MD [facility] [place] [address] Scheduled Procedures Name Priority Associated Diagnoses Date/Ti me EGD, UPPER GI ENDOSCOPY (WRV U 2.09) Peptic stricture of esophagus documented as of this encounter Visit Diagnoses Diagnosis HFrEF (heart failure with reduced ejection fraction) documented in this encounter Care Teams Utility Manager Relationship Specialty Start Date End Date Ana Gillespie APRN [address] [place] [address] PCP - General Family Medicine 02/03/19 documented as of this encounter
--- OUTSIDE RECORDS SUMMARY | 2024-05-19 20:26 | XMS_ITS | Encounter Summary ---
Author Organization [facility] Address [facility] [place] [address] Care Team Providers Care Shirt Folder Name Role Phone Ana Gillespie APRN Primary Care Provider [phone] Encounter Details Date Type Department Care Team (Late st Contact Info) Description 08/02/2023 11:03 AM EDT Anesthesia [place] [phone] Maddie Hughes MD [facility] [place] [address] Anesthesia Record Procedure Summary Procedure Name Responsible [...] for questions and acknowledgement of understanding claire POWER PLANT MANAGER 1137 Extubation/LMA Out 1139 an stop data [...] by Gaby Doan RN 08/02/23 1231 by Parirs Quinn RN ETT Mask Ventilation: Ea sy [...] Procedure Summary Date: 08/02/23 Room / Location: [facility] ENDO 2 / [facility] ENDOSCOPY Anesthesia Start: 1103 Anesthesia Stop: 1148 Procedure: EGD,WITH DILATION ESOPHAGUS WITH BALLOON,< 30 MM (WRVU 2.67) Diagnosis: Peptic stricture of esophagus (covington's esophagus - stricyture - 45 minutes - schedule july 2023) Surgeons: David Dejesus MD Responsible Provider: Maddie Hughes MD Anesthesia Type: general ASA Status: 3 All Anesthesia Providers: Anesthesiologist: Maddie Hughes MD POWER PLANT MANAGER: Ede Hughes CRNA Vitals Value Taken Time BP 121/61 08/02/23 1210 Temp Pulse Resp 17 08/02/23 1210 SpO2 100 % 08/02/23 1215 Pain Level 0 08/02/23 1210 Vitals shown include unfiled device data. Patient Location: PACU/[facility] Level of Consciousness: Awake and [...] IR G-Tube Check/Change 11/27/2022 Hang Cooper, ROSLYN [facility] INTERVENTIONL RAD ??? IR G-TUBE CHECK/CHANGE 03/10/2023 IR G-Tube Check/Change 03/10/2023 Geronimo Chambers, DO [facility] INTERVENTIONL RAD ??? IR G-TUBE CHECK/CHANGE 04/06/2023 IR G-Tube Check/Change 04/06/2023 Gavin Carrillo MD [facility] INTERVENTIONL RAD ??? IR G-TUBE CHECK/CHANGE 05/09/2023 IR G-Tube Check/Change [facility] INTERVENTIONL RAD ??? IR G-TUBE CHECK/CHANGE 07/09/2023 IR G-Tube Check/Change [facility] INTERVENTIONL RAD ??? IR G-TUBE PLACEMENT 09/11/2022 IR G-Tube Placement 09/11/2022 Moustapha Hart MD [facility] INTERVENTIONL RAD ??? IR SUTURE RELEASE 09/25/2022 IR Suture Release 09/25/2022 Yoselin Ghosh PA [facility] INTERVENTIONL RAD ??? PERCUTANEOUS GASTROSTOMY N/A 09/11/2022 PERCUTANEOUS GASTROSTOMY performed by Aiden Flores MD at [facility] CATY ??? PRO COLONOSCOPY, BIOPSY N/A 03/20/2016 COLONOSCOPY FLEXIBLE, WITH BX performed by David Dejesus MD at [facility] ENDOSCOPY ??? PRO COLONOSCOPY, DIAGNOSTIC N/A 03/01/2020 COLONOSCOPY, DIAGNOSTIC performed by David Dejesus MD at [facility] ENDOSCOPY ??? PRO ENDOSCOPIC US EXAM, ESOPH N/A 03/31/2022 UPPER EUS- ENDOSCOPIC ULTRASOUND performed by David Dejesus MD at [facility] ENDOSCOPY ??? PRO UP GI ENDOSCOPY, BALL DIL, 30MM N/A 12/24/2022 EGD,WITH DILATION ESOPHAGUS WITH BALLOON,< 30 MM (WRVU 2.67) performed by David Dejesus [facility] ENDOSCOPY ??? PRO UP GI ENDOSCOPY, BALL DIL, 30MM N/A 01/12/2023 EGD,WITH DILATION ESOPHAGUS WITH BALLOON,< 30 MM (WRVU 2.67) performed by David Dejesus [facility] ENDOSCOPY ??? PRO UP GI ENDOSCOPY, BALL DIL, 30MM N/A 02/26/2023 EGD,WITH DILATION ESOPHAGUS WITH BALLOON,< 30 MM (WRVU 2.67) performed by David Dejesus [facility] ENDOSCOPY ??? PRO UP GI ENDOSCOPY, BALL DIL, 30MM N/A 03/16/2023 EGD,WITH DILATION ESOPHAGUS WITH BALLOON,< 30 MM (WRVU 2.67) performed by David Dejesus [facility] ENDOSCOPY ??? PRO UP GI ENDOSCOPY, BALL DIL, 30MM N/A 03/30/2023 EGD,WITH DILATION ESOPHAGUS WITH BALLOON,< 30 MM (WRVU 2.67) performed by David Dejesus [facility] ENDOSCOPY ??? PRO UP GI ENDOSCOPY, BALL DIL, 30MM N/A 04/30/2023 EGD,WITH DILATION ESOPHAGUS WITH BALLOON,< 30 MM (WRVU 2.67) performed by David Dejesus [facility] ENDOSCOPY ??? PRO UP GI ENDOSCOPY, BALL DIL, 30MM N/A 06/01/2023 EGD,WITH DILATION ESOPHAGUS WITH BALLOON,< 30 MM (WRVU 2.67) performed by David Dejesus [facility] ENDOSCOPY ??? PRO UPPER GI ENDOSCOPY, BIOPSY N/A 04/03/2014 UPPER GASTROINTESTINAL ENDOSCOPY,WITH BIOPSY SINGLE OR MULTIPLE [facility]?? PRO UPPER GI ENDOSCOPY, BIOPSY N/A 03/20/2016 EGD WITH BIOPSY performed by David Dejesus MD at [facility] ENDOSCOPY ??? PRO UPPER GI ENDOSCOPY, BIOPSY N/A 11/22/2018 EGD WITH BIOPSY (WRVU 2.49) performed by David Dejesus MD at [facility] ENDOSCOPY ??? PRO UPPER GI ENDOSCOPY, BIOPSY N/A 03/01/2020 UPPER GASTROINTESTINAL ENDOSCOPY,WITH BIOPSY SINGLE OR MULTIPLE (WRVU 2.49) performed by David Dejesus MD at [facility] ENDOSCOPY ??? PRO UPPER GI ENDOSCOPY, BIOPSY N/A 09/23/2021 EGD WITH BIOPSY (WRVU 2.49) performed by David Dejesus MD at [facility] ENDOSCOPY ??? PRO UPPER GI ENDOSCOPY, BIOPSY N/A 03/31/2022 EGD WITH BIOPSY (WRVU 2.49) performed by David Dejesus MD at [facility] ENDOSCOPY ??? PRO UPPER GI ENDOSCOPY, BIOPSY N/A 07/03/2022 EGD WITH BIOPSY (WRVU 2.49) performed by David Dejesus MD at [facility] ENDOSCOPY ??? PRO UPPER GI ENDOSCOPY, DIAGNOSTIC N/A 04/03/2014 EGD, UPPER GI ENDOSCOPY performed by David Dejesus MD at [facility] ENDOSCOPY ??? PRO UPPER GI ENDOSCOPY, DIAGNOSTIC N/A 03/01/2020 EGD, UPPER GI ENDOSCOPY performed by David Dejesus MD at [facility] ENDOSCOPY ??? PRO UPPER GI ENDOSCOPY, DIAGNOSTIC N/A 09/09/2022 EGD, UPPER GI ENDOSCOPY (WRVU 2.09) performed by Ayo Russ MD at [facility] MAIN OR Social History Tobacco Use [...] with patient and spouse. Plan discussed with POWER PLANT MANAGER and attending. Anesthesia Screening documented in this encounter Plan of Treatment Upcoming Encounters Date Type Department Care Team (Late st Contact Info) Description 05/26/2024 1:10 PM [place] [phone] Gavin Carrillo MD [facility] [place] [address] 06/05/2024 1:20 PM EST Office Visit Cardiology at [address] [phone] Milagros Hernandez MD [facility] [place] [address] Scheduled Procedures Name Priority Associated Diagnoses Date/Ti [...] mg documented in this encounter Care Teams Shirt Folder Relationship Specialty Start Date End Date Ana Gillespie APRN [address] [place] [address] PCP - General Family Medicine 02/03/19 documented as of this encounter
--- OUTSIDE RECORDS SUMMARY | 2024-05-19 20:26 | XMS_ITS | Encounter Summary ---
Author Organization [facility] Address [facility] [place] [address] Care Team Providers Care Campus Recruiter Name Role Phone Ana Gillespie VAUGHN Primary Care Provider [phone] Encounter Details Date Type Department Care Team (Late st Contact Info) Description 07/22/2023 Telephone Pulmonology at [place] [phone] Niru Mary Social History Tobacco Use Types [...] 05/26/2024 1:10 PM EST Appointment [place] [address] Gavin Carrillo MD [facility] [place] [address] 06/05/2024 1:20 PM EST Office Visit Cardiology at [address] [phone] Milagros Hernandez MD [facility] [place] [address] Scheduled Procedures Name Priority Associated Diagnoses Date/Ti me EGD, UPPER GI ENDOSCOPY (WRV U 2.09) Peptic stricture of esophagus documented as of this encounter Visit Diagnoses Not on filedocumented in this encounter Care Teams Campus Recruiter Relationship Specialty Start Date End Date Ana Gillespie APRN [address] [place] [address] PCP - General Family Medicine 02/03/19 documented as of this encounter
--- OUTSIDE RECORDS SUMMARY | 2024-05-19 20:26 | XMS_ITS | Encounter Summary ---
Author Organization Counts Include [facility] [place] [address] Care Team Providers Care It Instructor Name Role Phone Ana Gillespie APRN Primary Care Provider [phone] Encounter Details Date Type Department Care Team (Late st Contact Info) Description 07/06/2023 Telephone Cardiology at [address] [phone] Chiquis Jean, RN Social History Tobacco Use [...] message stating Mrs Irving was admitted to [facility] over this past weekend. He states an [...] 05/26/2024 1:10 PM [place] [address] Gavin Carrillo MD [facility] [place] [address] 06/05/2024 1:20 PM EST Office Visit Cardiology at [address] [address] Milagros Hernandez MD [facility] [place] [address] Scheduled Procedures Name Priority Associated Diagnoses Date/Ti me EGD, UPPER GI ENDOSCOPY (WRV U 2.09) Peptic stricture of esophagus documented as of this encounter Visit Diagnoses Not on filedocumented in this encounter Care Teams It Instructor Relationship Specialty Start Date End Date Ana Gillespie APRN [address] [place] [address] PCP - General Family Medicine 02/03/19 documented as of this encounter
--- OUTSIDE RECORDS SUMMARY | 2024-05-19 20:26 | XMS_ITS | Encounter Summary ---
[place] [address] Care Team Providers Care Meat Grading Machine Operator Name Role Phone Ana Gillespie VAUGHN Primary Care Provider Reason for Referral * Diagnostic Test (Routine) - Closed Specialty Diagnoses / Procedures Referred By Esperanza t Referred To Contact Radiology Diagnoses Neuroleptic-induced parkinsonism Procedures IR G-Tube Check/Change NorthridgeFannie merritt PA [facility] [address] [place] [address] [facility] [place] [address] Referral ID Status Reason Start Date Expiration Date V isits Requested Visits Authorized [id number] Closed Specialty Service Requested 07/06/2023 01/03/2025 1 1 Reason for Visit * Diagnostic Test (Routine) - Closed Specialty Diagnoses / Procedures Referred By Contjovani rodríguez Referred To Contact Radiology Diagnoses Neuroleptic-induced parkinsonism Procedures IR G-Tube Check/Change NorthridgeFannie merritt PA [facility] [place] [address] [facility] [place] [address] Referral ID Status Reason Start Date Expiration Date V isits Requested Visits Authorized [id number] Closed Specialty Service Requested 07/06/2023 01/03/2025 1 1 Encounter Details Date Type Department Care Team (Latest Contact Info) Description 07/09/2023 12:21 PM EST - 07/09/2023 11:59 PM EST Hospital Encounter Radiology at [facility] [place] [address] Moustapha Hart MD [facility] [address] [place] [address] Neuroleptic-induced parkinsonism Discharge Disposition: Home Social History [...] or its attachments. INTERVENTIONAL RADIOLOGY PHONE NUMBERS [phone] If you have a NON Low profile feeding tube, call with any questions or concerns. During regular office hours call: [phone]. If it is after regular office hours, weekends or holidays, please call [phone] and ask to speak to the Lobby Porter vibration technician for Interventional Radiology. If you have a low profile ???ESTRELLITA-BARLOW?? feeding tube, please call Dejah Stauffer RN for any issues: [phone]. Revised 02/23/19 documented in this encounter Medications [...] meter kit. 1 each 0 12/14/2014 Insulin [place], Disposable, (BD INSULIN PEN NEEDLE UF MINI) [...] of : 1960 AGE: 63 y.o. Address: [address] [address] (home) Mobile: Telephone Information: Referring Provider: Fannie Conde REASON FOR VISIT: Order Questions Answers Where will study be performed? [facility] Radiology [120] Is the patient on [...] 05/26/2024 1:10 PM EST Appointment [place] [address] Gavin Carrillo MD [facility] DR [place] [address] 06/05/2024 1:20 PM EST Office Visit Cardiology at [address] [phone] Milagros Hernandez MD [facility] [place] [address] Scheduled Procedures Name Priority Associated [...] procedure was performed under fluoroscopic guidance. ??A bulk coolers installer fluoroscopic image was obtained. ??Contrast was injected through the gastrostomy catheter and another fluoroscopic image was obtained. ??Through the catheter, an 0.035 Amplatz wire was advanced. ??The catheter was removed. ??Over the wire, a new 16-Fr jbh-hcr-pgvrgll (ESTRELLITA) gastrostomy catheter was advanced. ??The retention [...] freely than typical. Exchange for new 16-Fr dfu-qdk-jziadwn (ESTRELLITA) gastrostomy catheter within the stomach; retention disc snugged closely to abdominal wall. ?? Impression: Successful gastrostomy catheter exchange. ??The catheter may be used immediately. Resident/Fellow: None. Attending: Dr. Geronimo Chambers. I, Dr. Chambers, was present throughout the procedure. Moustapha Hart MD [facility] IR ORDERABLES documented in this encounter Visit [...] mLs documented in this encounter Care Teams Meat Grading Machine Operator Relationship Specialty Start Date End Date Ana Gillespie APRN [address] [place] [address] PCP - General Family Medicine 02/03/19 documented as of this encounter
--- OUTSIDE RECORDS SUMMARY | 2024-05-19 20:26 | XMS_ITS | Encounter Summary ---
Author Organization [facility] [place] [address] Care Team Providers Care School Laboratory Technician Name Role Phone Ana Gillespie VAUGHN Primary Care Provider [phone] Reason for Referral * Diagnostic Test (Routine) - Closed Specialty Diagnoses / Procedures Referred By Esperanza rodríguez Referred To Contact Radiology Diagnoses Problem with gastrostomy tube Farrell's esophagus with high grade dysplasia Farrell's esophagus with low grade dysplasia Procedures IR G-Tube Check/Change Hang Cooper PA [facility] [place] [address] [facility] [place] [address] Referral ID Status Reason Start Date Expiration Date V isits Requested Visits Authorized [id number] Closed Specialty Service Requested 09/23/2023 03/25/2025 1 1 * Diagnostic Test (Routine) - Closed Specialty Diagnoses / Procedures Referred By Esperanza rodríguez Referred To Contact Radiology Diagnoses Problem with gastrostomy tube 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 Procedures IR Site Check In Recovery Room Hang Cooper PA [facility] [place] [address] [place] [address] Referral ID Status Reason Start Date Expiration Date V isits Requested Visits Authorized [id number] Closed Specialty Service Requested 09/20/2023 03/22/2025 1 1 Reason for Visit * Diagnostic Test (Routine) - Closed Specialty Diagnoses / Procedures Referred By Esperanza rodríguez Referred To Contact Radiology Diagnoses Problem with gastrostomy tube 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 Procedures IR Site Check In Recovery Room Hagn Cooper PA [facility] [place] [address] [facility] [place] [address] Referral ID Status Reason Start Date Expiration Date V isits Requested Visits Authorized [id number] Closed Specialty Service Requested 09/20/2023 03/22/2025 1 1 Encounter Details Date Type Department Care Team (Latest Contact Info) Description 09/23/2023 9:47 AM EDT - 09/23/2023 11:59 PM EDT Hospital [place] [address] Geronimo Chambers, [facility] [place] [address] Problem with gastrostomy tube; Neuroleptic-induced parkinsonism; Farrell's [...] kit. 1 each 0 12/14/2014 Insulin [place], Disposable, (BD INSULIN PEN [...] Patient Name: Jennifer Irving : 1960 MR#: [id number] Seen in IR recovery in followup to [...] daily. 180 tablet 3 Blood Sugar Diagnostic ([employer] ULTRA TEST) Strip 1 each by Other [...] PA [facility] INTERVENTIONL RAD IR G-TUBE CHECK/CHANGE 03/10/2023 IR G-Tube Check/Change 03/10/2023 Geronimo Chambers DO [facility] INTERVENTIONL RAD IR G-TUBE CHECK/CHANGE 04/06/2023 IR G-Tube Check/Change 04/06/2023 Gavin Carrillo MD [facility] INTERVENTIONL RAD IR G-TUBE CHECK/CHANGE 05/09/2023 IR G-Tube Check/Change [facility] INTERVENTIONL RAD IR G-TUBE CHECK/CHANGE 07/09/2023 IR G-Tube Check/Change [facility] INTERVENTIONL RAD IR G-TUBE CHECK/CHANGE 09/17/2023 IR G-Tube Check/Change 09/17/2023 Hang Cooper PA [facility] INTERVENTIONL RAD IR G-TUBE PLACEMENT 09/11/2022 IR G-Tube Placement 09/11/2022 Moustapha Hart MD [facility] INTERVENTIONL RAD IR SUTURE RELEASE 09/25/2022 IR Suture Release 09/25/2022 Yoselin Ghosh PA [facility] INTERVENTIONL RAD PERCUTANEOUS GASTROSTOMY N/A 09/11/2022 PERCUTANEOUS GASTROSTOMY performed by Aiden Flores MD at [facility] CATY PRO COLONOSCOPY, BIOPSY N/A 03/20/2016 COLONOSCOPY FLEXIBLE, WITH BX performed by David Dejesus MD at [facility] ENDOSCOPY PRO COLONOSCOPY, DIAGNOSTIC N/A 03/01/2020 COLONOSCOPY, DIAGNOSTIC performed by David Dejesus MD at [facility] ENDOSCOPY PRO ENDOSCOPIC US EXAM, ESOPH N/A 03/31/2022 UPPER EUS- ENDOSCOPIC ULTRASOUND performed by David Dejesus MD at [facility] ENDOSCOPY PRO UP GI ENDOSCOPY, BALL DIL, 30MM N/A 12/24/2022 EGD,WITH DILATION ESOPHAGUS WITH BALLOON,< 30 MM (WRVU 2.67) performed by David Dejesus [facility] ENDOSCOPY PRO UP GI ENDOSCOPY, BALL DIL, 30MM N/A 01/12/2023 EGD,WITH DILATION ESOPHAGUS WITH BALLOON,< 30 MM (WRVU 2.67) performed by David Dejesus [facility] ENDOSCOPY PRO UP GI ENDOSCOPY, BALL DIL, 30MM N/A 02/26/2023 EGD,WITH DILATION ESOPHAGUS WITH BALLOON,< 30 MM (WRVU 2.67) performed by David Dejesus [facility] ENDOSCOPY PRO UP GI ENDOSCOPY, BALL DIL, 30MM N/A 03/16/2023 EGD,WITH DILATION ESOPHAGUS WITH BALLOON,< 30 MM (WRVU 2.67) performed by David Dejesus [facility] ENDOSCOPY PRO UP GI ENDOSCOPY, BALL DIL, 30MM N/A 03/30/2023 EGD,WITH DILATION ESOPHAGUS WITH BALLOON,< 30 MM (WRVU 2.67) performed by David Dejesus [facility] ENDOSCOPY PRO UP GI ENDOSCOPY, BALL DIL, 30MM N/A 04/30/2023 EGD,WITH DILATION ESOPHAGUS WITH BALLOON,< 30 MM (WRVU 2.67) performed by David Dejesus [facility] ENDOSCOPY PRO UP GI ENDOSCOPY, BALL DIL, 30MM N/A 06/01/2023 EGD,WITH DILATION ESOPHAGUS WITH BALLOON,< 30 MM (WRVU 2.67) performed by David Dejesus MDat [facility] ENDOSCOPY PRO UP GI ENDOSCOPY, BALL DIL, 30MM N/A 08/02/2023 EGD,WITH DILATION ESOPHAGUS WITH BALLOON,< 30 MM (WRVU 2.67) performed by David Dejesus MDat [facility] ENDOSCOPY PRO UPPER GI ENDOSCOPY, BIOPSY N/A 04/03/2014 UPPER GASTROINTESTINAL ENDOSCOPY,WITH BIOPSY SINGLE OR MULTIPLE performed by David Dejesus MDat [facility] ENDOSCOPY PRO UPPER GI ENDOSCOPY, BIOPSY N/A 03/20/2016 EGD WITH BIOPSY performed by David Dejesus MD at [facility] ENDOSCOPY PRO UPPER GI ENDOSCOPY, BIOPSY N/A 11/22/2018 EGD WITH BIOPSY (WRVU 2.49) performed by David Dejesus MD at [facility] ENDOSCOPY PRO UPPER GI ENDOSCOPY, BIOPSY N/A 03/01/2020 UPPER GASTROINTESTINAL ENDOSCOPY,WITH BIOPSY SINGLE OR MULTIPLE (WRVU 2.49) performed by David Dejesus MD at [facility] ENDOSCOPY PRO UPPER GI ENDOSCOPY, BIOPSY N/A 09/23/2021 EGD WITH BIOPSY (WRVU 2.49) performed by David Dejesus MD at [facility] ENDOSCOPY PRO UPPER GI ENDOSCOPY, BIOPSY N/A 03/31/2022 EGD WITH BIOPSY (WRVU 2.49) performed by David Dejesus MD at [facility] ENDOSCOPY PRO UPPER GI ENDOSCOPY, BIOPSY N/A 07/03/2022 EGD WITH BIOPSY (WRVU 2.49) performed by David Dejesus MD at [facility] ENDOSCOPY PRO UPPER GI ENDOSCOPY, DIAGNOSTIC N/A 04/03/2014 EGD, UPPER GI ENDOSCOPY performed by David Dejesus MD at [facility] ENDOSCOPY PRO UPPER GI ENDOSCOPY, DIAGNOSTIC N/A 03/01/2020 EGD, UPPER GI ENDOSCOPY performed by David Dejesus MD at [facility] ENDOSCOPY PRO UPPER GI ENDOSCOPY, DIAGNOSTIC N/A 09/09/2022 EGD, UPPER GI ENDOSCOPY (WRVU 2.09) performed by Ayo Russ MD at [facility] MAIN OR Social history and habits: [...] 05/26/2024 1:10 PM [place] [phone] Gavin Carrillo MD [facility] [place] [address] 06/05/2024 1:20 PM EST Office Visit Cardiology at [address] [phone] Milagros Hernandez MD [facility] [place] [address] Scheduled Orders Name Type Priority Associated Diagnoses [...] removed over the wire. ??A new 16 Afghan balloon retained nonlow-profile gastrostomy tube was then [...] esophagus documented in this encounter Care Teams School Laboratory Technician Relationship Specialty Start Date End Date Ana Gillespie APRN [address] [place] [address] PCP - General Family Medicine 02/03/19 documented as of this encounter
--- OUTSIDE RECORDS SUMMARY | 2024-05-19 20:26 | XMS_ITS | Encounter Summary ---
Author Organization [facility] Address [facility] [place] [address] Care Team Providers Care Medical Detail Representative Name Role Phone Ana Gillespie VAUGHN Primary Care Provider [phone] Encounter Details Date Type Department Care Team (Late st Contact Info) Description 07/04/2023 Telephone Cardiology at [address] [place] [phone] Gaby Lockett APRN [facility] [place] [address] Social History Tobacco Use Types Packs/Day Years [...] received a call from Dr. Trimble from [facility] through the . Per Dr. Trimble: [...] 05/26/2024 1:10 PM [place] [address] Gavin Carrillo MD [facility] DR INTERVENTIONAL [place] [address] 06/05/2024 1:20 PM EST Office Visit Cardiology at [address] [address] Milagros Hernandez MD [facility] [place] [address] Scheduled Procedures Name Priority Associated Diagnoses Date/Ti me EGD, UPPER GI ENDOSCOPY (WRV U 2.09) Peptic stricture of esophagus documented as of this encounter Visit Diagnoses Not on filedocumented in this encounter Care Teams Medical Detail Representative Relationship Specialty Start Date End Date Ana Gillespie APRN [address] [place] [address] PCP - General Family Medicine 02/03/19 documented as of this encounter
--- OUTSIDE RECORDS SUMMARY | 2024-05-19 20:26 | XMS_ITS | Encounter Summary ---
Author Organization [facility] [place] [address] Care Team Providers Care Gas Scrubber Operator Name Role Phone Ana Gillespie APRN Primary Care Provider [phone] Encounter Details Date Type Department Care Team (Late st Contact Info) Description 08/02/2023 Orders Only [place] [address] David Dejesus MD [facility] [address] Peptic stricture of esophagus Social History Tobacco [...] 05/26/2024 1:10 PM EST Appoint[place] [address] Gavin Carrillo MD [facility] [place] [address] 06/05/2024 1:20 PM EST Office Visit Cardiology at [address] [address] Mliagros Hernandez MD [facility] [place] [address] Scheduled Procedures Name Priority Associated Diagnoses Date/Ti me EGD, UPPER GI ENDOSCOPY (WRV U 2.09) Peptic stricture of esophagus documented as of this encounter Visit Diagnoses Diagnosis Peptic stricture of esophagus Stricture and stenosis of esophagus documented in this encounter Care Teams Gas Scrubber Operator Relationship Specialty Start Date End Date Ana Gillespie APRN [address] [place] [address] PCP - General Family Medicine 02/03/19 documented as of this encounter
--- OUTSIDE RECORDS SUMMARY | 2024-05-19 20:26 | XMS_ITS | Encounter Summary ---
Author Organization [facility] [place] [address] Care Team Providers Care Hand Expansion Envelope Maker Name Role Phone Ana Gillespie VAUGHN Primary Care Provider Reason for Referral * Diagnostic Test (Routine) - Closed Specialty Diagnoses / Procedures Referred By Esperanza t Referred To Contact Radiology Diagnoses Problem with gastrostomy tube Farrell's esophagus with high grade dysplasia Farrell's esophagus with low grade dysplasia Procedures IR G-Tube Check/Change Hang Cooper PA [facility] [place] [address] [place] [address] Referral ID Status Reason Start Date Expiration Date V isits Requested Visits Authorized [id number] Closed Specialty Service Requested 09/23/2023 03/25/2025 1 1 Reason for Visit * Diagnostic Test (Routine) - Closed Specialty Diagnoses / Procedures Referred By Esperanza t Referred To Contact Radiology Diagnoses Problem with gastrostomy tube Farrell's esophagus with high grade dysplasia Farrell's esophagus with low grade dysplasia Procedures IR G-Tube Check/Change Hang Cooper PA [facility] [place] [address] [place] [address] Referral ID Status Reason Start Date Expiration Date V isits Requested Visits Authorized [id number] Closed Specialty Service Requested 09/23/2023 03/25/2025 1 1 Encounter Details Date Type Department Care Team (Latest Contact Info) Description 10/14/2023 10:11 AM EDT - 10/14/2023 11:59 PM EDT Hospital [place] [address] Geronimo Chambers, [facility] [address] Problem with gastrostomy tube; Farrell's esophagus with [...] meter kit. 1 each 0 12/14/2014 Insulin [place], Disposable, (BD INSULIN PEN NEEDLE UF MINI) [...] of : 1960 AGE: 63 y.o. Address: [address] [address] (home) Mobile: Telephone Information: Referring Provider: Hang Cooper REASON FOR VISIT: Order Questions Answers Where will study be performed? [facility] Radiology [120] To be scheduled [...] Patient's reports that she was evaluated at [facility] for possible PNA, and the [...] 09/16 due to occlusion. [place] where tube could not be flushed. Exchanged [...] IR G-Tube Check/Change 11/27/2022 Hang Cooper PA [facility] INTERVENTIONL RAD IR G-TUBE CHECK/CHANGE 03/10/2023 IR G-Tube Check/Change 03/10/2023 Geronimo Chambers DO [facility] INTERVENTIONL RAD IR G-TUBE CHECK/CHANGE 04/06/2023 IR G-Tube Check/Change 04/06/2023 Gavin Carrillo MD [facility] INTERVENTIONL RAD IR G-TUBE CHECK/CHANGE 05/09/2023 IR G-Tube Check/Change [facility] INTERVENTIONL RAD IR G-TUBE CHECK/CHANGE 07/09/2023 IR G-Tube Check/Change [facility] INTERVENTIONL RAD IR G-TUBE CHECK/CHANGE 09/17/2023 IR G-Tube Check/Change 09/17/2023 Hang Cooper PA [facility] INTERVENTIONL RAD IR G-TUBE PLACEMENT 09/11/2022 IR G-Tube Placement 09/11/2022 Moustapha Hart MD [facility] INTERVENTIONL RAD IR SUTURE RELEASE 09/25/2022 IR Suture Release 09/25/2022 Yoselin Ghosh PA [facility] INTERVENTIONL RAD PERCUTANEOUS GASTROSTOMY N/A 09/11/2022 PERCUTANEOUS GASTROSTOMY performed by Aiden Flores MD at [facility] CATY PRO COLONOSCOPY, BIOPSY N/A 03/20/2016 COLONOSCOPY FLEXIBLE, WITH BX performed by David Dejesus MD at [facility] ENDOSCOPY PRO COLONOSCOPY, DIAGNOSTIC N/A 03/01/2020 COLONOSCOPY, DIAGNOSTIC performed by David Dejesus MD at [facility] ENDOSCOPY PRO ENDOSCOPIC US EXAM, ESOPH N/A 03/31/2022 UPPER EUS- ENDOSCOPIC ULTRASOUND performed by David Dejesus MD at [facility] ENDOSCOPY PRO UP GI ENDOSCOPY, BALL DIL, 30MM N/A 12/24/2022 EGD,WITH DILATION ESOPHAGUS WITH BALLOON,< 30 MM (WRVU 2.67) performed by David Dejesus MDat [facility] ENDOSCOPY PRO UP GI ENDOSCOPY, BALL DIL, 30MM N/A 01/12/2023 EGD,WITH DILATION ESOPHAGUS WITH BALLOON,< 30 MM (WRVU 2.67) performed by David Dejesus [facility] ENDOSCOPY PRO UP GI ENDOSCOPY, BALL DIL, 30MM N/A 02/26/2023 EGD,WITH DILATION ESOPHAGUS WITH BALLOON,< 30 MM (WRVU 2.67) performed by David Dejesus [facility] ENDOSCOPY PRO UP GI ENDOSCOPY, BALL DIL, 30MM N/A 03/16/2023 EGD,WITH DILATION ESOPHAGUS WITH BALLOON,< 30 MM (WRVU 2.67) performed by David Dejesus [facility] ENDOSCOPY PRO UP GI ENDOSCOPY, BALL DIL, 30MM N/A 03/30/2023 EGD,WITH DILATION ESOPHAGUS WITH BALLOON,< 30 MM (WRVU 2.67) performed by David Dejesus [facility] ENDOSCOPY PRO UP GI ENDOSCOPY, BALL DIL, 30MM N/A 04/30/2023 EGD,WITH DILATION ESOPHAGUS WITH BALLOON,< 30 MM (WRVU 2.67) performed by David Dejesus [facility] ENDOSCOPY PRO UP GI ENDOSCOPY, BALL DIL, 30MM N/A 06/01/2023 EGD,WITH DILATION ESOPHAGUS WITH BALLOON,< 30 MM (WRVU 2.67) performed by David Dejesus [facility] ENDOSCOPY PRO UP GI ENDOSCOPY, BALL DIL, 30MM N/A 08/02/2023 EGD,WITH DILATION ESOPHAGUS WITH BALLOON,< 30 MM (WRVU 2.67) performed by David Dejesus [facility] ENDOSCOPY PRO UP GI ENDOSCOPY, DILATN W GUIDE N/A 10/07/2023 EGD-ESOPHOGEAL DILATATION OVER GUIDE WIRE (WRVU 2.91) performed by David Dejesus MD at [facility] ENDOSCOPY PRO UPPER GI ENDOSCOPY, BIOPSY N/A 04/03/2014 UPPER GASTROINTESTINAL ENDOSCOPY,WITH BIOPSY SINGLE OR MULTIPLE performed by David Dejesus [facility] ENDOSCOPY PRO UPPER GI ENDOSCOPY, BIOPSY N/A 03/20/2016 EGD WITH BIOPSY performed by David Dejesus MD at [facility] ENDOSCOPY PRO UPPER GI ENDOSCOPY, BIOPSY N/A 11/22/2018 EGD WITH BIOPSY (WRVU 2.49) performed by David Dejesus MD at [facility] ENDOSCOPY PRO UPPER GI ENDOSCOPY, BIOPSY N/A 03/01/2020 UPPER GASTROINTESTINAL ENDOSCOPY,WITH BIOPSY SINGLE OR MULTIPLE (WRVU 2.49) performed by David Dejesus MD at [facility] ENDOSCOPY PRO UPPER GI ENDOSCOPY, BIOPSY N/A 09/23/2021 EGD WITH BIOPSY (WRVU 2.49) performed by David Dejesus MD at [facility] ENDOSCOPY PRO UPPER GI ENDOSCOPY, BIOPSY N/A 03/31/2022 EGD WITH BIOPSY (WRVU 2.49) performed by David Dejesus MD at [facility] ENDOSCOPY PRO UPPER GI ENDOSCOPY, BIOPSY N/A 07/03/2022 EGD WITH BIOPSY (WRVU 2.49) performed by David Dejesus MD at [facility] ENDOSCOPY PRO UPPER GI ENDOSCOPY, DIAGNOSTIC N/A 04/03/2014 EGD, UPPER GI ENDOSCOPY performed by David Dejesus MD at [facility] ENDOSCOPY PRO UPPER GI ENDOSCOPY, DIAGNOSTIC N/A 03/01/2020 EGD, UPPER GI ENDOSCOPY performed by David Dejesus MD at [facility] ENDOSCOPY PRO UPPER GI ENDOSCOPY, DIAGNOSTIC N/A 09/09/2022 EGD, UPPER GI ENDOSCOPY (WRVU 2.09) performed by Ayo Russ MD at [facility] MAIN OR Medications: Current Outpatient [...] daily. 180 tablet 3 Blood Sugar Diagnostic ([employer] ULTRA TEST) Strip 1 each by Other [...] glucose meter kit. 1 each 0 Insulin [place], Disposable, (BD INSULIN PEN NEEDLE UF MINI) 31 x 3/16 Needle 1 Device by [facility].(Non-Drug; Combo Route) route 3 times [...] Patient's reports that she was evaluated at [facility] for possible PNA, and the [...] 09/16 due to occlusion. [place]ed to [place] where tube could not be flushed. Exchanged [...] tube removed over the wire. A new16 [place] balloon retained nonlow-profile gastrostomy tube was then [...] 05/26/2024 1:10 PM [place] [address] Gavin Carrillo MD [facility] [place] [address] 06/05/2024 1:20 PM EST Office Visit Cardiology at [address] [phone] Milagros Hernandez MD [facility] [place] [address] Scheduled Procedures Name Priority Associated Diagnoses Date/Ti [...] Patient's reports that she was evaluated at [facility] for possible PNA, and the [...] due to occlusion. Patient traveled to [place] where tube could not be flushed. Exchanged [...] removed over the wire. ??A new 16 Cuban balloon retained nonlow-profile gastrostomy tube was then [...] documented in this encounter Care Teams Hand Expansion Envelope Maker Relationship Specialty Start Date End Date Ana Gillespie APRN [address] [place] [address] PCP - General Family Medicine 02/03/19 documented as of this encounter
--- OUTSIDE RECORDS SUMMARY | 2024-05-19 20:26 | XMS_ITS | Encounter Summary ---
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 Procedures IR Site Check In Recovery Room Hang Cooper PA [facility] [place] [address] [facility] [place] [address] Referral ID Status Reason Start Date Expiration Date V isits Requested Visits Authorized [id number] Closed Specialty Service Requested 09/20/2023 03/22/2025 1 1 Encounter Details Date Type Department Care Team (Late st Contact Info) Description 09/20/2023 Notes [place] [address] Hang Cooper PA [facility] [place] [address] Social History Tobacco Use Types [...] 05/26/2024 1:10 PM [place] [address] Gavin Carrillo MD [facility] [place] [address] 06/05/2024 1:20 PM EST Office Visit Cardiology at [address] [phone] Milagros Hernandez MD [facility] [place] [address] Scheduled Orders Name Type Priority Associated Diagnoses [...] esophagus documented in this encounter Care Teams Comb Winder Relationship Specialty Start Date End Date Ana Gillespie APRN [address] [place] [address] PCP - General Family Medicine 02/03/19 documented as of this encounter
--- OUTSIDE RECORDS SUMMARY | 2024-05-19 20:26 | XMS_ITS | Encounter Summary ---
Author Organization [facility] Address [facility] [place] [address] Care Team Providers Care Farm Owner Operator Name Role Phone Ana Gillespie VAUGHN Primary Care Provider [phone] Encounter Details Date Type Department Care Team (Late st Contact Info) Description 08/25/2023 Telephone Pulmonology at [place] [phone] Niru Mary Social History Tobacco Use Types [...] 05/26/2024 1:10 PM EST Appointment [place] [address] Gavin Carrillo MD [facility] [place] [address] 06/05/2024 1:20 PM EST Office Visit Cardiology at [address] [address] Milagros Hernandez MD [facility] [place] [address] Scheduled Procedures Name Priority Associated Diagnoses Date/Ti me EGD, UPPER GI ENDOSCOPY (WRV U 2.09) Peptic stricture of esophagus documented as of this encounter Visit Diagnoses Not on filedocumented in this encounter Care Teams Farm Owner Operator Relationship Specialty Start Date End Date Ana Gillespie APRN [address] [place] [address] PCP - General Family Medicine 02/03/19 documented as of this encounter
--- OUTSIDE RECORDS SUMMARY | 2024-05-19 20:26 | XMS_ITS | Encounter Summary ---
Author Organization [facility] Address [facility] [place] [address] Care Team Providers Care Skate Hop Name Role Phone Ana Gillespie VAUGHN Primary Care Provider [phone] Encounter Details Date Type Department Care Team (Late st Contact Info) Description 09/20/2023 Telephone [place] [address] Juice Maxwell RN Social History [...] is currently at an Urgent Care in [place] to manage situation. Rogelio is calling [facility] to hopefully schedule apt for pt this coming . Forwarded. documented in this encounter Plan of Treatment Upcoming Encounters Date Type Department Care Team (Late st Contact Info) Description 05/26/2024 1:10 PM [place] [address] Gavin Carrillo MD [facility] [place] [address] 06/05/2024 1:20 PM EST Office Visit Cardiology at [address] [phone] Milagros Hernandez MD [facility] [place] [address] Scheduled Procedures Name Priority Associated Diagnoses Date/Ti me EGD, UPPER GI ENDOSCOPY (WRV U 2.09) Peptic stricture of esophagus documented as of this encounter Visit Diagnoses Not on filedocumented in this encounter Care Teams Skate Hop Relationship Specialty Start Date End Date Ana Gillespie APRN [address] [place] [address] PCP - General Family Medicine 02/03/19 documented as of this encounter
--- OUTSIDE RECORDS SUMMARY | 2024-05-19 20:26 | XMS_ITS | Encounter Summary ---
Author Organization [facility] [place] [address] Care Team Providers Care Pipe Out Worker Name Role Phone Ana Gillespie GEOLOGY FACULTY MEMBER Primary Care Provider [phone] Encounter Details Date Type Department Care Team (Late st Contact Info) Description 09/02/2023 Telephone [place] [phone] Parris Maravilla Social History Tobacco Use Types [...] returned, it can be handled by: Endo Parts Remover please park to me documented in this encounter Plan of Treatment Upcoming Encounters Date Type Department Care Team (Late st Contact Info) Description 05/26/2024 1:10 PM [place] [phone] Gavin Carrillo MD [facility] DR INTERVENTIONAL RADIOLOGY [place], [place] [id number] 06/05/2024 1:20 PM EST Office Visit Cardiology at [address] [address] Milagros Hernandez MD [facility] [place] [address] Scheduled Procedures Name Priority Associated Diagnoses Date/Ti me EGD, UPPER GI ENDOSCOPY (WRV U 2.09) Peptic stricture of esophagus documented as of this encounter Visit Diagnoses Not on filedocumented in this encounter Care Teams Pipe Out Worker Relationship Specialty Start Date End Date Ana Gillespie APRN [address] [place] [address] PCP - General Family Medicine 02/03/19 documented as of this encounter
--- OUTSIDE RECORDS SUMMARY | 2024-05-19 20:26 | XMS_ITS | Encounter Summary ---
Author Organization [facility] Address [facility] Marly petersen [place] [id number] Care Team Providers Care Belt Worker Name Role Phone Ana Gillespie APRN [...] 05/26/2024 1:10 PM EST Appointment Radiology at [place] [phone] Gavin Carrillo MD [facility] [place] [address] 06/05/2024 1:20 PM EST Office Visit Cardiology at [address] [address] Milagros Hernandez MD [facility] [place] [place] [address] Scheduled Procedures Name Priority Associated Diagnoses Date/Ti me EGD, UPPER GI ENDOSCOPY (WRV U 2.09) Peptic stricture of esophagus documented as of this encounter Visit Diagnoses Not on filedocumented in this encounter Care Teams Belt Worker Relationship Specialty Start Date End Date Ana Gillespie APRN [address] [place] [address] PCP - General Family Medicine 02/03/19 documented as of this encounter
--- OUTSIDE RECORDS SUMMARY | 2024-05-19 20:26 | XMS_ITS | Encounter Summary ---
[place] [address] Care Team Providers Care Heddler Tier Name Role Phone Ana Gillespie APRN Primary Care Provider [phone] Encounter Details Date Type Department Care Team (Late st Contact Info) Description 10/12/2023 [place] [phone] Niru Mary Social History Tobacco Use Types [...] - 10/12/2023 2:45 PM EDT Copied from [facility] #[id number]. Topic: Specialty Dept CRMs - Generic Call >> Aug 20, 2023 8:14 AM Crispin Reeves wrote: Specialist: Bang Relationship (if other than patient-full name): Spouse, Campos Irving Reason for Call: Campos canceled 08/20/23 PFT and FUV, due to illness. Campos declined having this rewriter reschedule. Please call Campos to coordinate rescheduling [id number] appointments with Campos. documented in this encounter Plan of Treatment Upcoming Encounters Date Type Department Care Team (Late st Contact Info) Description 05/26/2024 1:10 PM [place] [address] Gavin Carrillo MD [facility] [place] [address] 06/05/2024 1:20 PM EST Office Visit Cardiology at [address] [address] Milagros Hernandez MD [facility] [place] [address] Scheduled Procedures Name Priority Associated Diagnoses Date/Ti me EGD, UPPER GI ENDOSCOPY (WRV U 2.09) Peptic stricture of esophagus documented as of this encounter Visit Diagnoses Not on filedocumented in this encounter Care Teams Heddler Tier Relationship Specialty Start Date End Date Ana Gillespie APRN [address] [place] [address] PCP - General Family Medicine 02/03/19 documented as of this encounter
--- OUTSIDE RECORDS SUMMARY | 2024-05-19 20:26 | XMS_ITS | Encounter Summary ---
Author Organization Count Includes [facility] [address] Care Team Providers Care Color Sprayer Name Role Phone Jose Miguel Ana MENDES Primary Care Provider [phone] Encounter Details Date Type Department Care Team (Late st Contact Info) Description 07/12/2023 Telephone Cardiology at [address] [phone] Chiquis Jean, RN Social History Tobacco Use [...] 07/12/2023 10:29 AM EST TC to [employer] in [facility], and spoke with Pharmacist to clarify [...] that the Entresto has been called to [facility] in [facility]. Reviewing his chart the last DH prescription refill from [facility] Cardiology was 09/24/2022, for [...] 05/26/2024 1:10 PM EST [place] [address] Gavin Carrillo MD [facility] INTERVENTION[place] [address] 06/05/2024 1:20 PM EST Office Visit Cardiology at [address] [address] Milagros Hernandez MD [facility] [place] [address] Scheduled Procedures Name Priority Associated Diagnoses Date/Ti me EGD, UPPER GI ENDOSCOPY (WRV U 2.09) Peptic stricture of esophagus documented as of this encounter Visit Diagnoses Not on filedocumented in this encounter Care Teams Color Sprayer Relationship Specialty Start Date End Date Ana Gillespie APRN [address] [place] [address] PCP - General Family Medicine 02/03/19 documented as of this encounter
--- OUTSIDE RECORDS SUMMARY | 2024-05-19 20:26 | XMS_ITS | Encounter Summary ---
Author Organization [facility] [place] [address] Care Team Providers Care Motion Picture Film Examiner Name Role Phone Ana Gillespie VAUGHN Primary Care Provider [phone] Encounter Details Date Type Department Care Team (Late st Contact Info) Description 07/28/2023 Telephone [place] [phone] Niru Mary Social History Tobacco Use Types [...] 07/28/2023 5:13 PM EDT Copied from [facility] #[id number]. Topic: Specialty Dept CRMs - Generic Call [...] 05/26/2024 1:10 PM EST Appointment [place] [address] Gavin Carrillo MD [facility] [place] [address] 06/05/2024 1:20 PM EST Office Visit Cardiology at [address] [address] Milagros Hernandez MD [facility] [place] [address] Scheduled Procedures Name Priority Associated Diagnoses Date/Ti me EGD, UPPER GI ENDOSCOPY (WRV U 2.09) Peptic stricture of esophagus documented as of this encounter Visit Diagnoses Not on filedocumented in this encounter Care Teams Motion Picture Film Examiner Relationship Specialty Start Date End Date Ana Gillespie APRN [address] [place] [address] PCP - General Family Medicine 02/03/19 documented as of this encounter
--- OUTSIDE RECORDS SUMMARY | 2024-05-19 20:26 | XMS_ITS | Encounter Summary ---
Author Organization [facility] Address [facility] [place] [address] Care Team Providers Care Linesperson Name Role Phone Ana Gillespie VAUGHN Primary Care Provider Encounter Details Date Type Department Care Team (Latest Contact Info) Description 10/07/2023 9:20 AM EDT - 10/07/2023 12:03 PM EDT Hospital Encounter [place] [address] David Dejesus MD [facility] [place] [address] Discharge Disposition: Home Social History Tobacco Use [...] the day after the procedure, use an pmdg-vsu-wwehpku spray to numb your throat. Sucking on [...] occurs, please contact your Doctor. Please call [phone] before 8pm Mon-Fri with problems, questions or concerns. If you call after 8pm or on weekends, call the Hospital at [phone] and ask to speak to the Docketing Specialist logging operations inspector and the hand router operator will contact that person for you. When should you call for help? Call [phone] anytime you think you may need emergency [...] Where can you learn more? [facility] View your After Visit Summary and more online at [email or web address] If you would like to provide feedback about your hospital experience, please call the Office of Patient and Family Relations at . If you have received this After Visit Summary in error, please immediately return it in person to the department, or notify the [facility] Privacy Office by calling toll free at between the hours of 8AM and 5PM to arrange for our retrieval of the documents at no cost to you. Content Version: 12.2 ?? 0815-2527 [employer]. Care instructions adapted under license by [facility]. If you have questions about a medical condition or this instruction, always ask your healthcare professional. [employer] disclaims any warranty or liability for your [...] the day after the procedure, use an ovxx-etk-ejelfom spray to numb your throat. Sucking on [...] occurs, please contact your Doctor. Please call [phone] before 8pm Mon-Fri with problems, questions or concerns. If you call after 8pm or on weekends, call the Hospital at [phone] and ask to speak to the Docketing Specialist logging operations inspector and the hand router operator will contact that person for you. [...] Where can you learn more? [facility] View your After Visit Summary and more online at [email or web address] If you would like to provide feedback about your hospital experience, please call the Office of Patient and Family Relations at . If you have received this After Visit Summary in error, please immediately return it in person to the department, or notify the [facility] Privacy Office by calling toll free at between the hours of 8AM and 5PM to arrange for our retrieval of the documents at no cost to you. Content Version: 12.2 ?? 7659-4243 [employer]. Care instructions adapted under license by [facility]. If you have questions about a medical condition or this instruction, always ask your healthcare professional. [employer] disclaims any warranty or liability for your [...] meter kit. 1 each 0 12/14/2014 Insulin [place], Disposable, (BD INSULIN PEN NEEDLE UF MINI) [...] glucose meter kit. 1 each 0 Insulin [place], Disposable, (BD INSULIN PEN NEEDLE UF MINI) 31 x 3/16 Needle 1 Device by [facility] [...] 05/26/2024 1:10 PM [place] [phone] Gavin Carrillo MD [facility] [place] [address] 06/05/2024 1:20 PM EST Office Visit Cardiology at [address] [phone] Milagros Hernandez MD [facility] [place] [address] Scheduled Procedures Name Priority Associated Diagnoses Date/Ti me EGD, UPPER GI ENDOSCOPY (WRV U 2.09) Peptic stricture of esophagus documented as of this encounter Procedures Procedure Name Priority Date/Time Associated Diagnosis Comments Up Gi Endoscopy, Jes Cervantes Guide ([id number]) 10/07/2023 10:44 AM EDT Peptic stricture of esophagus UPPER GI ENDOSCOPY Routine 10/07/2023 10 :34 AM EDT documented in this encounter Results * UPPER GI ENDOSCOPY (10/07/2023 10:34 AM EDT) UPPER GI ENDOSCOPY [facility] Endoscopy Procedure Date: 10/07/2023 10:34 AM ? Patient Name: Jennifer Irving ? Date of : 1960 ? Age: 63 ? Order #: [id number] ? Instrument Name: [id number] ? Procedure: ? Upper GI endoscopy Indications: [...] RN) documented in this encounter Care Teams Linesperson Relationship Specialty Start Date End Date Ana Gillespie APRN [address] [place] [address] PCP - General Family Medicine 02/03/19 documented as of this encounter
--- OUTSIDE RECORDS SUMMARY | 2024-05-19 20:26 | XMS_ITS | Encounter Summary ---
Author Organization [facility] [place] [address] Care Team Providers Care Guitar Maker Name Role Phone Ana Gillespie VAUGHN Primary Care Provider [phone] Encounter Details Date Type Department Care Team (Late st Contact Info) Description 09/02/2023 Telephone [place] [phone] Chiquita James, RN Social History Tobacco Use [...] encounter Miscellaneous Notes * Telephone Encounter - Chiuqita James, RN - 09/02/2023 9:36 AM EDT [...] 05/26/2024 1:10 PM [place] [phone] Gavin Carrillo MD [facility] [place] [address] 06/05/2024 1:20 PM EST Office Visit Cardiology at [address] [address] Milagros Hernandez MD [facility] [place] [address] Scheduled Procedures Name Priority Associated Diagnoses Date/Ti me EGD, UPPER GI ENDOSCOPY (WRV U 2.09) Peptic stricture of esophagus documented as of this encounter Visit Diagnoses Not on filedocumented in this encounter Care Teams Guitar Maker Relationship Specialty Start Date End Date Ana Gillespie APRN [address] [place] [address] PCP - General Family Medicine 02/03/19 documented as of this encounter
--- OUTSIDE RECORDS SUMMARY | 2024-05-19 20:26 | XMS_ITS | Encounter Summary ---
Author Organization [facility] Address [facility] [place] [address] Care Team Providers Care Resource Manager Forester Name Role Phone Ana Gillespie APRN Primary Care Provider [phone] Encounter Details Date Type Department Care Team (Late st Contact Info) Description 10/07/2023 11:15 AM EDT - 10/07/2023 12:00 PM EDT Surgery [place] [address] David Dejesus MD [facility] [place] [address] EGD-ESOPHOGEAL DILATATION OVER GUIDE WIRE (WRVU 2.91) [...] the day after the procedure, use an fnyx-ccg-aoltacb spray to numb your throat. Sucking on [...] occurs, please contact your Doctor. Please call [phone] before 8pm Mon-Fri with problems, questions or concerns. If you call after 8pm or on weekends, call the Hospital at [phone] and ask to speak to the Customer Acquisition Specialist blood bank order control clerk and the grinder set up operator thread tool will contact that person for you. [...] Visit Summary and more online at [email or web address] If you would like to provide [...] cost to you. Content Version: 12.2 ?? 7803-1499 [employer]. Care instructions adapted under license by [facility]. If you have questions about a medical condition or this instruction, always ask your healthcare professional. [employer] disclaims any warranty or liability for your [...] the day after the procedure, use an rcqy-xfn-bcvwxfx spray to numb your throat. Sucking on [...] occurs, please contact your Doctor. Please call [phone] before 8pm Mon-Fri with problems, questions or concerns. If you call after 8pm or on weekends, call the Hospital at [phone] and ask to speak to the Customer Acquisition Specialist blood bank order control clerk and the grinder set up operator thread tool will contact that person for you. [...] Visit Summary and more online at [email or web address] If you would like to provide [...] cost to you. Content Version: 12.2 ?? 2646-7707 [employer]. Care instructions adapted under license by [facility]. If you have questions about a medical condition or this instruction, always ask your healthcare professional. [employer] disclaims any warranty or liability for your [...] meter kit. 1 each 0 12/14/2014 Insulin [place], Disposable, (BD INSULIN PEN NEEDLE UF MINI) 31 x 07/23 NeedleIndications:Di abetes mellitus type 2, uncontrolled 1 Device by [facility].(Non-Drug; Combo Route) route 3 times daily as [...] glucose meter kit. 1 each 0 Insulin [place], Disposable, (BD INSULIN PEN NEEDLE UF MINI) 31 x 3/16 Needle 1 Device by [facility].(Non-Drug; Combo Route) route 3 times daily as [...] 05/26/2024 1:10 PM EST Appointment [place] [phone] Gavin Carrillo MD [facility] DR INTERVENTIONAL [place] [address] 06/05/2024 1:20 PM EST Office Visit Cardiology at [address] [phone] Milagros Hernandez MD [facility] [place] [address] Scheduled Procedures Name Priority Associated Diagnoses Date/Ti me EGD, UPPER GI ENDOSCOPY (WRV U 2.09) Peptic stricture of esophagus documented as of this encounter Procedures Procedure Name Priority Date/Time Associated Diagnosis Comments Up Gi Endoscopy, Jes Hartmann ([id number]) 10/07/2023 10:44 AM EDT Peptic stricture of esophagus UPPER GI ENDOSCOPY Routine 10/07/2023 10 :34 AM EDT documented in this encounter Results * UPPER GI ENDOSCOPY (10/07/2023 10:34 AM EDT) UPPER GI ENDOSCOPY [facility] Endoscopy Procedure Date: 10/07/2023 10:34 AM ? Patient Name: Jennifer Irving ? Date of : 1960 ? Age: 63 ? Order #: [id number] ? Instrument Name: [id number]- [id number] ? Procedure: ? Upper GI endoscopy Indications: [...] RN) documented in this encounter Care Teams Resource Manager Forester Relationship Specialty Start Date End Date Ana Gillespie APRN [address] [place] [address] PCP - General Family Medicine 02/03/19 documented as of this encounter
--- OUTSIDE RECORDS SUMMARY | 2024-05-19 20:26 | XMS_ITS | Encounter Summary ---
Author Organization [facility] Address [facility] [place] [address] Care Team Providers Care Archery Instructor Name Role Phone Ana Gillespie VAUGHN Primary Care Provider [phone] Encounter Details Date Type Department Care Team (Late st Contact Info) Description 08/02/2023 11:00 AM EDT - 08/02/2023 12:00 PM EDT Surgery [place] [phone] David Dejesus MD [facility] [place] [address] EGD,WITH DILATION ESOPHAGUS WITH BALLOON,< 30 MM [...] the day after the procedure, use an ityu-nao-fdjexhx spray to numb your throat. Sucking on [...] occurs, please contact your Doctor. Please call [phone] before 8pm Mon-Fri with problems, questions or concerns. If you call after 8pm or on weekends, call the Hospital at [phone] and ask to speak to the Motorcycle Subassembler mortgage protection specialist and the seal extrusion operator will contact that person for you. When should you call for help? Call [phone] anytime you think you may need emergency [...] any problems. Where can you learn more? [facility] View your After Visit Summary and more online at [email or web address] If you would like to provide feedback about your hospital experience, please call the Office of Patient and Family Relations at . If you have received this After Visit Summary in error, please immediately return it in person to the department, or notify the [facility] Privacy Office by calling toll free at between the hours of 8AM and 5PM to arrange for our retrieval of the documents at no cost to you. Content Version: 12.2 ?? 4698-9830 [employer]. Care instructions adapted under license by [facility]. If you have questions about a medical condition or this instruction, always ask your healthcare professional. [employer] disclaims any warranty or liability for your [...] the day after the procedure, use an jddi-rpk-zsvhizt spray to numb your throat. Sucking on [...] occurs, please contact your Doctor. Please call [phone] before 8pm Mon-Fri with problems, questions or concerns. If you call after 8pm or on weekends, call the Hospital at [phone] and ask to speak to the Motorcycle Subassembler mortgage protection specialist and the seal extrusion operator will contact that person for you. [...] any problems. Where can you learn more? [facility] View your After Visit Summary and more online at [email or web address] If you would like to provide feedback about your hospital experience, please call the Office of Patient and Family Relations at . If you have received this After Visit Summary in error, please immediately return it in person to the department, or notify the [facility] Privacy Office by calling toll free at between the hours of 8AM and 5PM to arrange for our retrieval of the documents at no cost to you. Content Version: 12.2 ?? 0746-4041 [employer]. Care instructions adapted under license by [facility]. If you have questions about a medical condition or this instruction, always ask your healthcare professional. [employer] disclaims any warranty or liability for your [...] meter kit. 1 each 0 12/14/2014 Insulin [place], Disposable, (BD INSULIN PEN NEEDLE UF MINI) [...] 05/26/2024 1:10 PM EST Appointment [place] [phone] Gavin Carrillo MD [facility] [place] [address] 06/05/2024 1:20 PM EST Office Visit Cardiology at [address] [phone] Milagros Hernandez MD [facility] [place] [address] Scheduled Procedures Name Priority Associated Diagnoses Date/Ti me EGD, UPPER GI ENDOSCOPY (WRV U 2.09) Peptic stricture of esophagus documented as of this encounter Procedures Procedure Name Priority Date/Time Associated Diagnosis Comments Up Gi Endoscopy, Ball Dil, 30Mm ([id number]) 08/02/2023 11:01 AM EDT Peptic stricture of esophagus UPPER GI ENDOSCOPY Routine 08/02/2023 10 :49 AM EDT POCT GLUCOSE Routine 08/02/2023 9:54 AM EDT documented in this encounter Results * UPPER GI ENDOSCOPY (08/02/2023 10:49 AM EDT) [facility] UPPER GI ENDOSCOPY [facility] Endoscopy Procedure Date: 08/02/2023 10:49 AM ? Patient Name: Jennifer Irving ? N: [id number] ? Date of : 1960 ? Age: 63 ? Order #: [id number] ? Instrument Name: [id number]- [id number] ? Procedure: ? Upper GI endoscopy Indications: [...] 08/02/2023 10:4 9 AM EDT Ana Gillespie RACE RELATIONS PROFESSOR GENERAL SURGICAL ORD ERABLES PROVATION * POCT Glucose (08/02/2023 9:54 AM EDT) Glucose, POC 81 65 - 199 mg/dL [facility] Comment: Supplemental ranges: <140 mg/dL before meals <180 mg/dL all other times of the day Blood 08/02/2023 9:54 AM EDT 08/02/2023 9:54 AM EDT David Dejesus MD POINT OF CARE TEST ORDERABLES [facility] [place] [address] documented in this encounter Visit Diagnoses Diagnosis [...] Switch to gravity)1123 (Restarted - Provider: Ede Huhges CRNA) documented in this encounter Care Teams Archery Instructor Relationship Specialty Start Date End Date Ana Gillespie APRN [address] [place] [address] PCP - General Family Medicine 02/03/19 documented as of this encounter
--- OUTSIDE RECORDS SUMMARY | 2024-05-19 20:26 | XMS_ITS | Encounter Summary ---
Author Organization [facility] [place] [address] Care Team Providers Care Endoscopy Specialty Technician Name Role Phone Ana Gillespie VAUGHN Primary Care Provider [phone] Encounter Details Date Type Department Care Team (Late st Contact Info) Description 09/08/2023 Telephone [place] [phone] Parris Maravilla Social History Tobacco Use Types [...] returned, it can be handled by: Endo Gut Snatcher please park to me documented in this encounter Plan of Treatment Upcoming Encounters Date Type Department Care Team (Late st Contact Info) Description 05/26/2024 1:10 PM [place] [phone] Gavin Carrillo MD [facility] [place] [address] 06/05/2024 1:20 PM EST Office Visit Cardiology at [address] [address] Milagros Hernandez MD [facility] [place] [address] Scheduled Procedures Name Priority Associated Diagnoses Date/Ti me EGD, UPPER GI ENDOSCOPY (WRV U 2.09) Peptic stricture of esophagus documented as of this encounter Visit Diagnoses Not on filedocumented in this encounter Care Teams Endoscopy Specialty Technician Relationship Specialty Start Date End Date Ana Gillespie APRN [address] [place] [address] PCP - General Family Medicine 02/03/19 documented as of this encounter
--- OUTSIDE RECORDS SUMMARY | 2024-05-19 20:26 | XMS_ITS | Encounter Summary ---
Author Organization [facility] [place] [address] Care Team Providers Care Finished Cloth Checker Name Role Phone Ana Gillespie APRN Primary Care Provider [phone] Encounter Details Date Type Department Care Team (Late st Contact Info) Description 08/11/2023 Telephone [place] [address] Parris Maravilla Social History Tobacco [...] it can be handled by: Any Endoscopy Gas Flow Regulator documented in this encounter Plan of Treatment Upcoming Encounters Date Type Department Care Team (Late st Contact Info) Description 05/26/2024 1:10 PM EST Appointment [place] [address] Gavin Carrillo MD [facility] INTERVENTIONAL [place] [address] 06/05/2024 1:20 PM EST Office Visit Cardiology at [address] [phone] Milagros Hernandez MD [facility] [place] [address] Scheduled Procedures Name Priority Associated Diagnoses Date/Ti me EGD, UPPER GI ENDOSCOPY (WRV U 2.09) Peptic stricture of esophagus documented as of this encounter Visit Diagnoses Not on filedocumented in this encounter Care Teams Finished Cloth Checker Relationship Specialty Start Date End Date Ana Gillespie APRN [address] [place] [address] PCP - General Family Medicine 02/03/19 documented as of this encounter
--- OUTSIDE RECORDS SUMMARY | 2024-05-19 20:26 | XMS_ITS | Encounter Summary ---
Author Organization [facility] Address [facility] [place] [address] Care Team Providers Care Pediatric Occupational Therapist Name Role Phone Ana Gillespie APRN Primary Care Provider [phone] Encounter Details Date Type Department Care Team (Late st Contact Info) Description 10/07/2023 Orders Only Gastroenterology at [place] [phone] David Dejesus MD [facility] [place] [address] Social History Tobacco Use Types Packs/Day Years [...] 05/26/2024 1:10 PM [place] [address] Gavin Carrillo MD [facility] [place] [address] 06/05/2024 1:20 PM EST Office Visit Cardiology at [address] [phone] Milagros Hernandez MD [facility] [place] [address] Scheduled Procedures Name Priority Associated Diagnoses Date/Ti me EGD, UPPER GI ENDOSCOPY (WRV U 2.09) Peptic stricture of esophagus documented as of this encounter Visit Diagnoses Not on filedocumented in this encounter Care Teams Pediatric Occupational Therapist Relationship Specialty Start Date End Date Ana Gillespie APRN [address] [place] [address] PCP - General Family Medicine 02/03/19 documented as of this encounter
--- OUTSIDE RECORDS SUMMARY | 2024-05-19 20:26 | XMS_ITS | Encounter Summary ---
Author Organization [facility] [place] [address] Care Team Providers Care Per Diem Name Role Phone Ana Gillespie APRN Primary Care Provider [phone] Encounter Details Date Type Department Care Team (Late st Contact Info) Description 10/07/2023 10:41 AM EDT Anesthesia Event [place] [address] Alex Conley MD [facility] [place] [address] Valerie Vital CRNA [facility] [place] [address] Anesthesia Record Procedure Summary Procedure Name Responsible [...] by Sergey Jordan RN PIV 10/07/23; 1041; vrky-tto-pmpeew catheter system; 20 gauge, 1 in length; [...] Procedure Summary Date: 10/07/23 Room / Location: [facility] ENDO 1 / [facility] ENDOSCOPY Anesthesia Start: 1041 Anesthesia Stop: 1123 Procedure: EGD-ESOPHOGEAL DILATATION OVER GUIDE WIRE (WRVU 2.91) (Trunk) Diagnosis: Peptic stricture of esophagus (shedule one month - peptic stricture dilation) Surgeons: David Dejesus MD Responsible Provider: Anesthesia Type: MAC ASA Status: 3 All Anesthesia Providers: Student Nurse Lab Technologist: Zenia Montiel Vitals Value Taken Time BP 148/72 10/07/23 1140 Temp Pulse Resp 15 10/07/23 1140 SpO2 100 % 10/07/23 1148 Pain Level 0 10/07/23 1140 Vitals shown include unfiled device data. Patient Location: PACU/[facility] Level of Consciousness: Conscious but Sleepy [...] IR G-Tube Check/Change 11/27/2022 [facility] ??? IR G-TUBE CHECK/CHANGE 03/10/2023 IR G-Tube Check/Change 03/10/2023 Geronimo Chambers, DO [facility] INTERVENTIONL RAD ??? IR G-TUBE CHECK/CHANGE 04/06/2023 IR G-Tube Check/Change 04/06/2023 Gavin Carrillo MD [facility] INTERVENTIONL RAD ??? IR G-TUBE CHECK/CHANGE 05/09/2023 IR G-Tube Check/Change [facility] INTER[facility] RAD ??? IR G-TUBE CHECK/CHANGE 07/09/2023 IR G-Tube Check/Change [facility] INTERVENTIONL RAD ??? IR G-TUBE CHECK/CHANGE 09/17/2023 IR G-Tube Check/Change 09/17/2023 Hang Cooper PA [facility] INTERVENTIONL RAD ??? IR G-TUBE PLACEMENT 09/11/2022 IR G-Tube Placement 09/11/2022 Moustapha Hart MD [facility] INTERVENTIONL RAD ??? IR SUTURE RELEASE 09/25/2022 IR Suture Release 09/25/2022 Yoselin Ghosh PA [facility] INTERVENTIONL RAD ??? PERCUTANEOUS GASTROSTOMY N/A 09/11/2022 PERCUTANEOUS GASTROSTOMY performed by Aiden Flores MD at [facility] CATY ??? PRO COLONOSCOPY, BIOPSY N/A 03/20/2016 COLONOSCOPY FLEXIBLE, WITH BX performed by David Dejesus MD at [facility] ENDOSCOPY ??? PRO COLONOSCOPY, DIAGNOSTIC N/A 03/01/2020 COLONOSCOPY, DIAGNOSTIC performed by David Dejesus MD at [facility] ENDOSCOPY ??? PRO ENDOSCOPIC US EXAM, ESOPH N/A 03/31/2022 UPPER EUS- ENDOSCOPIC ULTRASOUND performed by David Dejesus MD at [facility] ENDOSCOPY ??? PRO UP GI ENDOSCOPY, BALL DIL, 30MM N/A 12/24/2022 EGD,WITH DILATION ESOPHAGUS WITH BALLOON,< 30 MM (WRVU 2.67) performed by David Dejesus [facility] ENDOSCOPY ??? PRO UP GI ENDOSCOPY, BALL DIL, 30MM N/A 01/12/2023 EGD,WITH DILATION ESOPHAGUS WITH BALLOON,< 30 MM (WRVU 2.67) performed by David Dejesus [facility] ENDOSCOPY ??? PRO UP GI ENDOSCOPY, BALL DIL, 30MM N/A 02/26/2023 EGD,WITH DILATION ESOPHAGUS WITH BALLOON,< 30 MM (WRVU 2.67) performed by David Dejesus [facility] ENDOSCOPY ??? PRO UP GI ENDOSCOPY, BALL DIL, 30MM N/A 03/16/2023 EGD,WITH DILATION ESOPHAGUS WITH BALLOON,< 30 MM (WRVU 2.67) performed by David Dejesus [facility] ENDOSCOPY ??? PRO UP GI ENDOSCOPY, BALL DIL, 30MM N/A 03/30/2023 EGD,WITH DILATION ESOPHAGUS WITH BALLOON,< 30 MM (WRVU 2.67) performed by David Dejesus [facility] ENDOSCOPY ??? PRO UP GI ENDOSCOPY, BALL DIL, 30MM N/A 04/30/2023 EGD,WITH DILATION ESOPHAGUS WITH BALLOON,< 30 MM (WRVU 2.67) performed by David Dejesus [facility] ENDOSCOPY ??? PRO UP GI ENDOSCOPY, BALL DIL, 30MM N/A 06/01/2023 EGD,WITH DILATION ESOPHAGUS WITH BALLOON,< 30 MM (WRVU 2.67) performed by David Dejesus [facility] ENDOSCOPY ??? PRO UP GI ENDOSCOPY, BALL DIL, 30MM N/A 08/02/2023 EGD,WITH DILATION ESOPHAGUS WITH BALLOON,< 30 MM (WRVU 2.67) performed by David Dejesus [facility] ENDOSCOPY ??? PRO UPPER GI ENDOSCOPY, BIOPSY N/A 04/03/2014 UPPER GASTROINTESTINAL ENDOSCOPY,WITH BIOPSY SINGLE OR MULTIPLE performed by David Dejesus [facility] ENDOSCOPY ??? PRO UPPER GI ENDOSCOPY, BIOPSY N/A 03/20/2016 EGD WITH BIOPSY performed by David Dejesus MD at [facility] ENDOSCOPY ??? PRO UPPER GI ENDOSCOPY, BIOPSY N/A 11/22/2018 EGD WITH BIOPSY (WRVU 2.49) performed by David Dejesus MD at [facility] ENDOSCOPY ??? PRO UPPER GI ENDOSCOPY, BIOPSY N/A 03/01/2020 UPPER GASTROINTESTINAL ENDOSCOPY,WITH BIOPSY SINGLE OR MULTIPLE (WRVU 2.49) performed by David Dejesus MD at [facility] ENDOSCOPY ??? PRO UPPER GI ENDOSCOPY, BIOPSY N/A 09/23/2021 EGD WITH BIOPSY (WRVU 2.49) performed by David Dejesus MD at [facility] ENDOSCOPY ??? PRO UPPER GI ENDOSCOPY, BIOPSY N/A 03/31/2022 EGD WITH BIOPSY (WRVU 2.49) performed by David Dejesus MD at [facility] ENDOSCOPY ??? PRO UPPER GI ENDOSCOPY, BIOPSY N/A 07/03/2022 EGD WITH BIOPSY (WRVU 2.49) performed by David Dejesus MD at [facility] ENDOSCOPY ??? PRO UPPER GI ENDOSCOPY, DIAGNOSTIC N/A 04/03/2014 EGD, UPPER GI ENDOSCOPY performed by David Dejesus MD at [facility] ENDOSCOPY ??? PRO UPPER GI ENDOSCOPY, DIAGNOSTIC N/A 03/01/2020 EGD, UPPER GI ENDOSCOPY performed by David Dejesus MD at [facility] ENDOSCOPY ??? PRO UPPER GI ENDOSCOPY, DIAGNOSTIC N/A 09/09/2022 EGD, UPPER GI ENDOSCOPY (WRVU 2.09) performed by Ayo Russ MD at [facility] MAIN OR Social History Tobacco [...] risks discussed with patient. Plan discussed with CARPET LOOM FIXER. Anesthesia Screening * Anesthesia Preprocedure Evaluation - [...] IR G-Tube Check/Change 11/27/2022 [facility] ??? IR G-TUBE CHECK/CHANGE 03/10/2023 IR G-Tube Check/Change 03/10/2023 Geronimo Chambers, DO [facility] INTERVENTIONL RAD ??? IR G-TUBE CHECK/CHANGE 04/06/2023 IR G-Tube Check/Change 04/06/2023 Gavin Carrillo MD [facility] INTERVENTIONL RAD ??? IR G-TUBE CHECK/CHANGE 05/09/2023 IR G-Tube Check/Change [facility] RAD ??? IR G-TUBE CHECK/CHANGE 07/09/2023 IR G-Tube Check/Change [facility] INTER[facility] RAD ??? IR G-TUBE PLACEMENT 09/11/2022 IR G-Tube Placement 09/11/2022 Moustapha Hart MD [facility] INTERVENTIONL RAD ??? IR SUTURE RELEASE 09/25/2022 IR Suture Release 09/25/2022 Yoselin Ghosh PA [facility] INTERVENTIONL RAD ??? PERCUTANEOUS GASTROSTOMY N/A 09/11/2022 PERCUTANEOUS GASTROSTOMY performed by Aiden Flores MD at [facility] CATY ??? PRO COLONOSCOPY, BIOPSY N/A 03/20/2016 COLONOSCOPY FLEXIBLE, WITH BX performed by David Dejesus MD at [facility] ENDOSCOPY ??? PRO COLONOSCOPY, DIAGNOSTIC N/A 03/01/2020 COLONOSCOPY, DIAGNOSTIC performed by David Dejesus MD at [facility] ENDOSCOPY ??? PRO ENDOSCOPIC US EXAM, ESOPH N/A 03/31/2022 UPPER EUS- ENDOSCOPIC ULTRASOUND performed by David Dejesus MD at [facility] ENDOSCOPY ??? PRO UP GI ENDOSCOPY, BALL DIL, 30MM N/A 12/24/2022 EGD,WITH DILATION ESOPHAGUS WITH BALLOON,< 30 MM (WRVU 2.67) performed by David Dejesus [facility] ENDOSCOPY ??? PRO UP GI ENDOSCOPY, BALL DIL, 30MM N/A 01/12/2023 EGD,WITH DILATION ESOPHAGUS WITH BALLOON,< 30 MM (WRVU 2.67) performed by David Dejesus [facility] ENDOSCOPY ??? PRO UP GI ENDOSCOPY, BALL DIL, 30MM N/A 02/26/2023 EGD,WITH DILATION ESOPHAGUS WITH BALLOON,< 30 MM (WRVU 2.67) performed by David Dejesus [facility] ENDOSCOPY ??? PRO UP GI ENDOSCOPY, BALL DIL, 30MM N/A 03/16/2023 EGD,WITH DILATION ESOPHAGUS WITH BALLOON,< 30 MM (WRVU 2.67) performed by David Dejesus [facility] ENDOSCOPY ??? PRO UP GI ENDOSCOPY, BALL DIL, 30MM N/A 03/30/2023 EGD,WITH DILATION ESOPHAGUS WITH BALLOON,< 30 MM (WRVU 2.67) performed by David Dejesus [facility] ENDOSCOPY ??? PRO UP GI ENDOSCOPY, BALL DIL, 30MM N/A 04/30/2023 EGD,WITH DILATION ESOPHAGUS WITH BALLOON,< 30 MM (WRVU 2.67) performed by David Dejesus [facility] ENDOSCOPY ??? PRO UP GI ENDOSCOPY, BALL DIL, 30MM N/A 06/01/2023 EGD,WITH DILATION ESOPHAGUS WITH BALLOON,< 30 MM (WRVU 2.67) performed by David Dejesus [facility] ENDOSCOPY ??? PRO UP GI ENDOSCOPY, BALL DIL, 30MM N/A 08/02/2023 EGD,WITH DILATION ESOPHAGUS WITH BALLOON,< 30 MM (WRVU 2.67) performed by David Dejesus [facility] ENDOSCOPY ??? PRO UPPER GI ENDOSCOPY, BIOPSY N/A 04/03/2014 UPPER GASTROINTESTINAL ENDOSCOPY,WITH BIOPSY SINGLE OR MULTIPLE performed by David Dejesus [facility] ENDOSCOPY ??? PRO UPPER GI ENDOSCOPY, BIOPSY N/A 03/20/2016 EGD WITH BIOPSY performed by David Dejesus MD at [facility] ENDOSCOPY ??? PRO UPPER GI ENDOSCOPY, BIOPSY N/A 11/22/2018 EGD WITH BIOPSY (WRVU 2.49) performed by David Dejesus MD at [facility] ENDOSCOPY ??? PRO UPPER GI ENDOSCOPY, BIOPSY N/A 03/01/2020 UPPER GASTROINTESTINAL ENDOSCOPY,WITH BIOPSY SINGLE OR MULTIPLE (WRVU 2.49) performed by David Dejesus MD at [facility] ENDOSCOPY ??? PRO UPPER GI ENDOSCOPY, BIOPSY N/A 09/23/2021 EGD WITH BIOPSY (WRVU 2.49) performed by David Dejesus MD at [facility] ENDOSCOPY ??? PRO UPPER GI ENDOSCOPY, BIOPSY N/A 03/31/2022 EGD WITH BIOPSY (WRVU 2.49) performed by David Dejesus MD at [facility] ENDOSCOPY ??? PRO UPPER GI ENDOSCOPY, BIOPSY N/A 07/03/2022 EGD WITH BIOPSY (WRVU 2.49) performed by David Dejesus MD at [facility] ENDOSCOPY ??? PRO UPPER GI ENDOSCOPY, DIAGNOSTIC N/A 04/03/2014 EGD, UPPER GI ENDOSCOPY performed by David Dejesus MD at [facility] ENDOSCOPY ??? PRO UPPER GI ENDOSCOPY, DIAGNOSTIC N/A 03/01/2020 EGD, UPPER GI ENDOSCOPY performed by David Dejesus MD at [facility] ENDOSCOPY ??? PRO UPPER GI ENDOSCOPY, DIAGNOSTIC N/A 09/09/2022 EGD, UPPER GI ENDOSCOPY (WRVU 2.09) performed by Ayo Russ MD at [facility] MAIN OR Social History Tobacco [...] 05/26/2024 1:10 PM EST Appointment [place] [address] Gavin Carrillo MD [facility] [place] [address] 06/05/2024 1:20 PM EST Office Visit Cardiology at [address] [phone] Milagros Hernandez MD [facility] [place] [address] Scheduled Procedures Name Priority Associated [...] mg documented in this encounter Care Teams Per Diem Relationship Specialty Start Date End Date Ana Gillespie APRN [address] [place] [address] PCP - General Family Medicine 02/03/19 documented as of this encounter
--- OUTSIDE RECORDS SUMMARY | 2024-05-19 20:26 | XMS_ITS | Encounter Summary ---
Author Organization [facility] Address [facility] Marly petersen [place] [id number] Care Team Providers Care Field Scout Name Role Phone Ana Gillespie APRN Primary Care Provider [phone] Encounter Details Date Type Department Care Team [...] 05/26/2024 1:10 PM EST Appointment Radiology at [place] [phone] Gavin Carrillo MD [facility] [place] [address] 06/05/2024 1:20 PM EST Office Visit Cardiology at [address] [phone] Milagros Hernandez MD [facility] [place] [address] Scheduled Procedures Name Priority Associated Diagnoses Date/Ti me EGD, UPPER GI ENDOSCOPY (WRV U 2.09) Peptic stricture of esophagus documented as of this encounter Visit Diagnoses Not on filedocumented in this encounter Care Teams Field Scout Relationship Specialty Start Date End Date Ana Gillespie APRN [address] [place] [address] PCP - General Family Medicine 02/03/19 documented as of this encounter
--- OUTSIDE RECORDS SUMMARY | 2024-05-19 20:26 | XMS_ITS | Encounter Summary ---
Author Organization [facility] [place] [address] Care Team Providers Care Tar Heat Exchanger Cleaner Name Role Phone Ana Gillespie HEALTHCARE ADVISORY SERVICES MANAGER Primary Care Provider [phone] Encounter Details Date Type Department Care Team (Late st Contact Info) Description 08/11/2023 Telephone Gastroenterology at [facility] [place] [address] Parris Maravilla Social History Tobacco Use Types [...] - 08/11/2023 12:09 PM EDT Jennifer Irving [id number] Diagnosis/Indication: shedule one month - peptic stricture [...] your procedure. Who will likely be your heavy truck driver for the procedure? *Please Verify [...] 05/26/2024 1:10 PM [place] [address] Gavin Carrillo MD [facility] [address] [place] [address] 06/05/2024 1:20 PM EST Office Visit Cardiology at [address] [address] Milagros Hernandez MD [facility] [place] [address] Scheduled Procedures Name Priority Associated Diagnoses Date/Ti me EGD, UPPER GI ENDOSCOPY (WRV U 2.09) Peptic stricture of esophagus documented as of this encounter Visit Diagnoses Not on filedocumented in this encounter Care Teams Tar Heat Exchanger Cleaner Relationship Specialty Start Date End Date Ana Gillespie APRN [address] [place] [address] PCP - General Family Medicine 02/03/19 documented as of this encounter
--- OUTSIDE RECORDS SUMMARY | 2024-05-19 20:26 | XMS_ITS | Encounter Summary ---
Author Organization [facility] Address [facility] [place] [address] Care Team Providers Care Compensation Consultant Name Role Phone Ana Gillespie VAUGHN Primary Care Provider [phone] Encounter Details Date Type Department Care Team (Late st Contact Info) Description 10/05/2023 Telephone Pulmonology at [place] [phone] Niru Mary Social History Tobacco Use Types [...] 05/26/2024 1:10 PM [place] [address] Gavin Carrillo MD [facility] [place] [address] 06/05/2024 1:20 PM EST Office Visit Cardiology at [address] [phone] Milagros Hernandez MD [facility] [place] [address] Scheduled Procedures Name Priority Associated Diagnoses Date/Ti me EGD, UPPER GI ENDOSCOPY (WRV U 2.09) Peptic stricture of esophagus documented as of this encounter Visit Diagnoses Not on filedocumented in this encounter Care Teams Compensation Consultant Relationship Specialty Start Date End Date Ana Gillespie APRN [address] [place] [address] PCP - General Family Medicine 02/03/19 documented as of this encounter
--- OUTSIDE RECORDS SUMMARY | 2024-05-19 20:26 | XMS_ITS | Encounter Summary ---
Author Organization [facility] [place] [address] Care Team Providers Care Engineer Specialist Name Role Phone Ana Gillespie VAUGHN Primary Care Provider [phone] Encounter Details Date Type Department Care Team (Late st Contact Info) Description 08/10/2023 Telephone [place] [address] Chiquita James, RN Social History [...] 05/26/2024 1:10 PM [place] [phone] Gavin Carrillo MD [facility] [address] INTERVENTIONAL [place] [address] 06/05/2024 1:20 PM EST Office Visit Cardiology at [address] [address] Milagros Hernandez MD [facility] [place] [address] Scheduled Procedures Name Priority Associated Diagnoses Date/Ti me EGD, UPPER GI ENDOSCOPY (WRV U 2.09) Peptic stricture of esophagus documented as of this encounter Visit Diagnoses Not on filedocumented in this encounter Care Teams Engineer Specialist Relationship Specialty Start Date End Date Ana Gillespie APRN [address] [place] [address] PCP - General Family Medicine 02/03/19 documented as of this encounter
--- OUTSIDE RECORDS SUMMARY | 2024-05-19 20:26 | XMS_ITS | Encounter Summary ---
Author Organization [facility] [place] [address] Care Team Providers Care Police Guard Name Role Phone Ana Gillespie VAUGHN Primary Care Provider [phone] Encounter Details Date Type Department Care Team (Latest Contact Info) Description 09/17/2023 11:55 AM EDT - 09/17/2023 11:59 PM EDT Hospital [place] [phone] Geronimo Chambers, [facility] [place] [address] Discharge Disposition: Home Social History Tobacco Use [...] meter kit. 1 each 0 12/14/2014 Insulin [place], Disposable, (BD INSULIN PEN NEEDLE UF MINI) [...] : 1960 AGE: 63 y.o. Address: [address] [address] (home) Mobile: Telephone Information: Referring Provider: Geronimo [...] 05/26/2024 1:10 PM [place] [phone] Gavin Carrillo MD [facility] [place] [address] 06/05/2024 1:20 PM EST Office Visit Cardiology at [address] [place] [address] Milagros Hernandez MD [facility] [place] [address] Scheduled Procedures Name Priority Associated Diagnoses Date/Ti [...] mLs documented in this encounter Care Teams Police Guard Relationship Specialty Start Date End Date Ana Gillespie APRN [address] [place] [address] PCP - General Family Medicine 02/03/19 documented as of this encounter
--- OUTSIDE RECORDS SUMMARY | 2024-05-19 20:27 | XMS_ITS | Encounter Summary ---
Author Organization [facility] [place] [address] Care Team Providers Care Auto Body Repair Teacher Name Role Phone Ana Gillespie APRN Primary Care Provider [phone] Encounter Details Date Type Department Care Team (Late st Contact Info) Description 04/30/2023 Orders [place] [address] David Dejesus MD [facility] [place] [address] Peptic stricture of esophagus Social History Tobacco [...] 05/26/2024 1:10 PM EST [place] [address] Gavin Carrillo MD [facility] [place] [address] 06/05/2024 1:20 PM EST Office Visit Cardiology at [address] [address] Milagros Hernandez MD [facility] [place] [address] Scheduled Orders Name Type Priority Associated Diagnoses [...] in this encounter Care Teams Auto Body Repair Teacher Relationship Specialty Start Date End Date Ana Gillespie APRN [address] [place] [address] PCP - General Family Medicine 02/03/19 documented as of this encounter
--- OUTSIDE RECORDS SUMMARY | 2024-05-19 20:27 | XMS_ITS | Encounter Summary ---
Author Organization [facility] Address [facility] [place] [address] Care Team Providers Care Emergency Response Officer Name Role Phone Ana Gillespie VAUGHN Primary Care Provider [phone] Encounter Details Date Type Department Care Team (Late st Contact Info) Description 06/01/2023 9:00 AM EST - 06/01/2023 9:45 AM EST Surgery Gastroenterology at [facility] [place] [place] [address] David Dejesus MD [facility] [place] [address] EGD,WITH DILATION ESOPHAGUS WITH BALLOON,< 30 MM [...] the day after the procedure, use an teie-ymp-kkixikm spray to numb your throat. Sucking on [...] occurs, please contact your Doctor. Please call [phone] before 8pm Mon-Fri with problems, questions or concerns. If you call after 8pm or on weekends, call the Hospital at [phone] and ask to speak to the Ct Technologist regional administrative assistant and the break and load operator will contact that person for you. When should you call for help? Call [phone] anytime you think you may need emergency [...] Where can you learn more? [facility] View your After Visit Summary and more online at [email or web address] If you would like to [...] cost to you. Content Version: 12.2 ?? 4674-1777 [employer]. Care instructions adapted under license by [facility]. If you have questions about a medical condition or this instruction, always ask your healthcare professional. [employer] disclaims any warranty or liability for your [...] meter kit. 1 each 0 12/14/2014 Insulin Hooks, Disposable, (BD INSULIN PEN NEEDLE UF MINI) 31 x 07/23 NeedleIndications:Di abetes mellitus type 2, uncontrolled 1 Device by [facility]Non-Drug; Combo Route) route 3 times daily as [...] glucose meter kit. 1 each 0 Insulin Hooks, Disposable, (BD INSULIN PEN NEEDLE UF MINI) 31 x 3/16 Needle 1 Device by [facility]Non-Drug; Combo Route) route 3 times daily as [...] Dejesus MD - 06/01/2023 9:15 AM EST [facility] [place]ative Note Patient Name: Jennifer Irving : [id number] MR#: [id number] Case Date: 06/01/2023 This note was entered in error documented in this encounter Plan of Treatment Upcoming Encounters Date Type Department Care Team (Late st Contact Info) Description 05/26/2024 1:10 PM EST Appointment Radiology at [place] [phone] Gavin Carrillo MD [facility] [place] [address] 06/05/2024 1:20 PM EST Office Visit Cardiology at [address] [address] Milagros Hernandez MD [facility] [place] [address] Scheduled Procedures Name Priority Associated Diagnoses Date/Ti me EGD, UPPER GI ENDOSCOPY (WRV U 2.09) Peptic stricture of esophagus documented as of this encounter Procedures Procedure Name Priority Date/Time Associated Diagnosis Comments Up Gi Endoscopy, Ball Scott, 30Mm (02715) 06/01/2023 9:06 AM EST Peptic stricture of esophagus UPPER GI ENDOSCOPY Routine 06/01/2023 8: 54 AM EST POCT GLUCOSE Routine 06/01/2023 8:32 AM EST documented in this encounter Results * UPPER GI ENDOSCOPY (06/01/2023 8:54 AM EST) [facility] UPPER GI ENDOSCOPY [facility] Procedure Date: 06/01/2023 8:54 AM ? Patient Name: Jennifer Irving ? N: [id number] ? Date of : 1960 ? Age: 62 ? Order #: [id number] ? Instrument Name: [id number] ? Procedure: ? Upper GI endoscopy Indications: [...] Procedure Code(s): ? --- Professional --- ? 42225, Esophagogastroduod enoscopy, ? flexible, transoral; diagnostic, ? including collection of specimen(s) ? by brushing or washing, when ? performed (separate procedure) CPT copyright 2021 [employer]. All rights reserved. The codes documented in this report are preliminary and upon skip load driver review may be revised to meet current compliance requirements. Attending Participation: ? I personally performed the entire procedure. ? ___ David Dejesus MD 06/01/2023 9:37:18 AM This report has been signed electronically. Number of Addenda: 0 Note Initiated On: 06/01/2023 8:54 AM PROVATION 06/01/2023 8:54 AM EST Ana Gillespie INFORMATICS MANAGER GENERAL SURGICAL ORD ERABLES Performing Organization Address City/[facility] Co de Phone Number PROVATION * POCT Glucose (06/01/2023 8:32 AM EST) Glucose, POC 102 65 - 199 mg/dL [facility] Comment: Supplemental ranges: <140 mg/dL before meals <180 mg/dL all other times of the day Blood 06/01/2023 8:32 AM EST 06/01/2023 8:32 AM EST David Dejesus MD POINT OF CARE TEST ORDERABLES Performing Organization Address City/State/[facility] Co de Phone Number [facility] [place] [address] documented in this encounter Visit Diagnoses Diagnosis [...] RN) documented in this encounter Care Teams Emergency Response Officer Relationship Specialty Start Date End Date Ana Gillespie APRN [address] [place] [address] PCP - General Family Medicine 02/03/19 documented as of this encounter
--- OUTSIDE RECORDS SUMMARY | 2024-05-19 20:27 | XMS_ITS | Encounter Summary ---
Author Organization [facility] Address [facility] Marly petersen [place] [id number] Care Team Providers Care Resident Programs Assistant Name Role Phone Ana Gillespie APRN Primary Care Provider [phone] Encounter Details Date Type Department Care Team [...] 05/26/2024 1:10 PM EST Appointment Radiology at [place] [phone] Gavin Carrillo MD [facility] INTERVENTIONAL [place] [address] 06/05/2024 1:20 PM EST Office Visit Cardiology at [address] [address] Milagros Hernandez MD [facility] [place] [address] Scheduled Procedures Name Priority Associated Diagnoses Date/Ti me EGD, UPPER GI ENDOSCOPY (WRV U 2.09) Peptic stricture of esophagus documented as of this encounter Visit Diagnoses Not on filedocumented in this encounter Care Teams Resident Programs Assistant Relationship Specialty Start Date End Date Ana Gillespie APRN [address] [place] [address] PCP - General Family Medicine 02/03/19 documented as of this encounter
--- OUTSIDE RECORDS SUMMARY | 2024-05-19 20:27 | XMS_ITS | Encounter Summary ---
Author Organization [facility] Address [facility] [place] [address] Care Team Providers Care Cat Swamper Name Role Phone Ana Gillespie VAUGHN Primary Care Provider [phone] Encounter Details Date Type Department Care Team (Latest Contact Info) Description 06/01/2023 7:00 AM EST - 06/01/2023 10:36 AM EST Hospital Encounter Gastroenterology at [facility] [place] [address] David Dejesus MD [facility] [place] [address] Discharge Disposition: Home Social History Tobacco Use [...] the day after the procedure, use an vjze-xzh-pwpzuqr spray to numb your throat. Sucking on [...] occurs, please contact your Doctor. Please call [phone] before 8pm Mon-Fri with problems, questions or concerns. If you call after 8pm or on weekends, call the Hospital at [phone] and ask to speak to the Player Services Representative credit card control clerk and the paper reclaiming machine operator will contact that person for you. When should you call for help? Call [phone] anytime you think you may need emergency [...] any problems. Where can you learn more? [facility] View your After Visit Summary and more online at [email or web address] If you would like to [...] cost to you. Content Version: 12.2 ?? 7707-5180 [employer]. Care instructions adapted under license by [facility]. If you have questions about a medical condition or this instruction, always ask your healthcare professional. [employer] disclaims any warranty or liability for [...] meter kit. 1 each 0 12/14/2014 Insulin Hickman, Disposable, (BD INSULIN PEN NEEDLE UF MINI) [...] glucose meter kit. 1 each 0 Insulin Hickman, Disposable, (BD INSULIN PEN NEEDLE UF MINI) [...] Dejesus MD - 06/01/2023 9:15 AM EST [facility] Operative Note Patient Name: Jennifer Irving : [id number] MR#: [id number] Case Date: 06/01/2023 This note was entered in error documented in this encounter Plan of Treatment Upcoming Encounters Date Type Department Care Team (Late st Contact Info) Description 05/26/2024 1:10 PM [place] [phone] Gavin Carrillo MD [facility] [place] [address] 06/05/2024 1:20 PM EST Office Visit Cardiology at [address] [address] Milagros Hernandez MD [facility] [place] [address] Scheduled Procedures Name Priority Associated Diagnoses Date/Ti me EGD, UPPER GI ENDOSCOPY (WRV U 2.09) Peptic stricture of esophagus documented as of this encounter Procedures Procedure Name Priority Date/Time Associated Diagnosis Comments Up Gi Endoscopy, Rick Chavez, 30Mm ([address]) 06/01/2023 9:06 AM EST Peptic stricture of esophagus UPPER GI ENDOSCOPY Routine 06/01/2023 8: 54 AM EST POCT GLUCOSE Routine 06/01/2023 8:32 AM EST documented in this encounter Results * UPPER GI ENDOSCOPY (06/01/2023 8:54 AM EST) [facility] UPPER GI ENDOSCOPY [facility] Endoscopy Procedure Date: 06/01/2023 8:54 AM ? Patient Name: Jennifer Irving ? N: [id number] ? Date of : 1960 ? Age: 62 ? Order #: [id number] ? Instrument Name: [id number] ? Procedure: ? Upper GI endoscopy Indications: [...] Procedure Code(s): ? --- Professional --- ? 35999, Esophagogastroduod enoscopy, ? flexible, transoral; diagnostic, ? including collection of specimen(s) ? by brushing or washing, when ? performed (separate procedure) CPT copyright 2021 [employer]. All rights reserved. The codes documented in this report are preliminary and upon dairy grazer review may be revised to meet current compliance requirements. Attending Participation: ? I personally performed the entire procedure. ? ___ David Dejesus MD 06/01/2023 9:37:18 AM This report has been signed electronically. Number of Addenda: 0 Note Initiated On: 06/01/2023 8:54 AM PROVATION 06/01/2023 8:54 AM EST Ana Gillespie CHILD ADVOCATE GENERAL SURGICAL ORD ERABLES Performing Organization Address City/[facility] Co de Phone Number PROVATION * POCT Glucose (06/01/2023 8:32 AM EST) Glucose, POC 102 65 - 199 mg/dL [facility] Comment: Supplemental ranges: <140 mg/dL before meals <180 mg/dL all other times of the day Blood 06/01/2023 8:32 AM EST 06/01/2023 8:32 AM EST David Dejesus MD POINT OF CARE TEST ORDERABLES Performing Organization Address [facility] Co de Phone Number [facility] [place] [address] documented in this encounter Visit Diagnoses Not [...] RN) documented in this encounter Care Teams Cat Swamper Relationship Specialty Start Date End Date Ana Gillespie APRN [address] [place] [address] PCP - General Family Medicine 02/03/19 documented as of this encounter
--- OUTSIDE RECORDS SUMMARY | 2024-05-19 20:27 | XMS_ITS | Encounter Summary ---
Author Organization [place] [address] Care Team Providers Care Stitcher Hand Name Role Phone Ana Gillespie APRN Primary Care Provider [phone] Encounter Details Date Type Department Care Team (Late st Contact Info) Description 05/14/2023 Telephone [place] [phone] Chiquita James, RN Social History Tobacco Use [...] 05/26/2024 1:10 PM EST [place] [address] Gavin Carrillo MD [facility] [place] [address] 06/05/2024 1:20 PM EST Office Visit Cardiology at [address] [address] Milagros Hernandez MD [facility] [place] [address] Scheduled Procedures Name Priority Associated Diagnoses Date/Ti me EGD, UPPER GI ENDOSCOPY (WRV U 2.09) Peptic stricture of esophagus documented as of this encounter Visit Diagnoses Not on filedocumented in this encounter Care Teams Stitcher Hand Relationship Specialty Start Date End Date Ana Gillespie APRN [address] [place] [address] PCP - General Family Medicine 02/03/19 documented as of this encounter
--- OUTSIDE RECORDS SUMMARY | 2024-05-19 20:27 | XMS_ITS | Encounter Summary ---
Author Organization [facility] [place] [address] Care Team Providers Care Excel Vba Developer Name Role Phone Ana Gillespie APRN Primary Care Provider [phone] Encounter Details Date Type Department Care Team (Late st Contact Info) Description 03/30/2023 6:01 PM EST Anesthesia [place] [phone] Betty Bhagat MD [facility] [place] [address] Cristine Gomez CRNA [facility] [place] [address] Anesthesia Record Procedure Summary Procedure Name Responsible [...] Procedure Summary Date: 03/30/23 Room / Location: [facility] ENDO 2 / [facility] ENDOSCOPY Anesthesia Start: 1800 Anesthesia Stop: Procedure: EGD,WITH DILATION ESOPHAGUS WITH BALLOON,< 30 MM (WRVU 2.67) (Trunk) Diagnosis: Peptic stricture of esophagus (peptic stricture dilation - please schedule Wednesday before ) Surgeons: David Dejesus MD Responsible Provider: Betty Bhagat MD Anesthesia Type: general ASA Status: 3 All Anesthesia Providers: Anesthesiologist: Betty Bhagat MD DATA DEVELOPER: Cristine Gomez CRNA Vitals Value Taken Time BP 114/57 03/30/23 1833 Temp Pulse Resp 16 03/30/233 SpO2 99 % 03/30/231838 Pain Level 0 03/30/231832 Vitals shown include unfiled device data. Patient Location: PACU/[facility] Level of Consciousness: Conscious but [...] y.o. female. Procedure(s): EGD, UPPER GI ENDOSCOPY ([facility]) Patient Active Problem List Diagnosis [...] IR G-Tube Check/Change 11/27/2022 Hang Cooper PA [facility] INTERVENTIONL RAD ??? IR G-TUBE CHECK/CHANGE 03/10/2023 IR G-Tube Check/Change 03/10/2023 Geronimo Chambers, [facility] INTERVENTIONL RAD ??? IR G-TUBE PLACEMENT 09/11/2022 IR G-Tube Placement 09/11/2022 Moustapha Hart MD [facility] INTERVENTIONL RAD ??? IR SUTURE RELEASE 09/25/2022 IR Suture Release 09/25/2022 Yoselin Ghosh PA [facility] INTERVENTIONL RAD ??? PERCUTANEOUS GASTROSTOMY N/A 09/11/2022 PERCUTANEOUS GASTROSTOMY performed by Aiden Flores MD at [facility] CATY ??? PRO COLONOSCOPY, BIOPSY [...] at [facility] ENDOSCOPY ??? PRO UP GI ENDOSCOPY, BALL DIL, 30MM N/A 12/24/2022 EGD,WITH DILATION ESOPHAGUS WITH BALLOON,< 30 MM (WRVU 2.67) performed by David Dejesus [facility] ENDOSCOPY ??? PRO UP GI ENDOSCOPY, BALL DIL, 30MM N/A 01/12/2023 EGD,WITH DILATION ESOPHAGUS WITH BALLOON,< 30 MM (WRVU 2.67) performed by David Dejesus [facility] ENDOSCOPY ??? PRO UP GI ENDOSCOPY, BALL DIL, 30MM N/A 02/26/2023 EGD,WITH DILATION ESOPHAGUS WITH BALLOON,< 30 MM (WRVU 2.67) performed by David Dejesus [facility] ENDOSCOPY ??? PRO UP GI ENDOSCOPY, BALL DIL, 30MM N/A 03/16/2023 EGD,WITH DILATION ESOPHAGUS WITH BALLOON,< 30 MM (WRVU 2.67) performed by David Dejesus [facility] ENDOSCOPY ??? PRO UPPER GI ENDOSCOPY, BIOPSY N/A 04/03/2014 UPPER GASTROINTESTINAL ENDOSCOPY,WITH BIOPSY SINGLE OR MULTIPLE [facility] ??? PRO UPPER GI [...] 2.09) performed by Ayo Russ MD at [facility] MAIN OR Social History Tobacco [...] discussed with patient. Plan discussed with DATA DEVELOPER and attending. Anesthesia Screening documented in this encounter Plan of Treatment Upcoming Encounters Date Type Department Care Team (Late st Contact Info) Description 05/26/2024 1:10 PM [place] [address] Gavin Carrillo MD [facility] [place] [address] 06/05/2024 1:20 PM EST Office Visit Cardiology at [address] [address] Milagros Hernandez MD [facility] [place] [address] Scheduled Procedures Name Priority Associated [...] mg documented in this encounter Care Teams Excel Vba Developer Relationship Specialty Start Date End Date Ana Gillespie APRN [address] [place] [address] PCP - General Family Medicine 02/03/19 documented as of this encounter
--- OUTSIDE RECORDS SUMMARY | 2024-05-19 20:27 | XMS_ITS | Encounter Summary ---
[place] [address] Care Team Providers Care Cue Selector Name Role Phone Ana Gillespie VAUGHN Primary Care Provider [phone] Encounter Details Date Type Department Care Team (Late st Contact Info) Description 06/11/2023 Telephone [place] [phone] Chiquita James, RN Social History Tobacco Use [...] PM EST [place] [phone] Gavin Carrillo MD [facility] DR INTERVENTION[place] [address] 06/05/2024 1:20 PM EST Office Visit Cardiology at [address] [phone] Milagros Hernandez MD [facility] [address] Scheduled Procedures Name Priority Associated Diagnoses Date/Ti me EGD, UPPER GI ENDOSCOPY (WRV U 2.09) Peptic stricture of esophagus documented as of this encounter Visit Diagnoses Not on filedocumented in this encounter Care Teams Cue Selector Relationship Specialty Start Date End Date Ana Gillespie APRN [address] [place] [address] PCP - General Family Medicine 02/03/19 documented as of this encounter
--- OUTSIDE RECORDS SUMMARY | 2024-05-19 20:27 | XMS_ITS | Encounter Summary ---
Author Organization [facility] Address [facility] [place] [address] Care Team Providers Care Warehouse Manager Name Role Phone Ana Gillespie VAUGHN Primary Care Provider [phone] Encounter Details Date Type Department Care Team (Late st Contact Info) Description 06/18/2023 Telephone Pulmonology at [place] [phone] Niru Mary Social History Tobacco Use Types [...] 05/26/2024 1:10 PM [place] [address] [facility] [place] [address] 06/05/2024 1:20 PM EST Office Visit Cardiology at [address] [phone] [facility] [place] [address] Scheduled Procedures Name Priority Associated Diagnoses Date/Ti me EGD, UPPER GI ENDOSCOPY (WRV U 2.09) Peptic stricture of esophagus documented as of this encounter Visit Diagnoses Not on filedocumented in this encounter Care Teams Warehouse Manager Relationship Specialty Start Date End Date Ana Gillespie APRN [address] [place] [address] PCP - General Family Medicine 02/03/19 documented as of this encounter
--- OUTSIDE RECORDS SUMMARY | 2024-05-19 20:27 | XMS_ITS | Encounter Summary ---
[place] [address] Care Team Providers Care Jar Capper Name Role Phone Ana Gillespie VAUGHN Primary Care Provider [phone] Reason for Referral * Diagnostic Test (Routine) - Closed Specialty Diagnoses / Procedures Referred By Contjovani t Referred To Contact Radiology Diagnoses Neuroleptic-induced parkinsonism Procedures IR G-Tube Check/Change NuevoFannie merritt PA [facility] [place] [address] [facility] [place] [address] Referral ID Status Reason Start Date Expiration Date V isits Requested Visits Authorized [id number] Closed Specialty Service Requested 04/05/2023 10/03/2024 1 1 Reason for Visit * Diagnostic Test (Routine) - Closed Specialty Diagnoses / Procedures Referred By Contjovani t Referred To Contact Radiology Diagnoses Neuroleptic-induced parkinsonism Procedures IR G-Tube Check/Change NuevoFannie merritt PA [facility] [place] [address] [facility] [place] [address] Referral ID Status Reason Start Date Expiration Date V isits Requested Visits Authorized [id number] Closed Specialty Service Requested 04/05/2023 10/03/2024 1 1 Encounter Details Date Type Department Care Team (Latest Contact Info) Description 04/06/2023 1:11 PM EST - 04/06/2023 11:59 PM EST Hospital Encounter Radiology at [facility] [place] [address] Moustapha Hart MD [facility] [place] [address] Neuroleptic-induced parkinsonism Discharge Disposition: Home Social History [...] or its attachments. INTERVENTIONAL RADIOLOGY PHONE NUMBERS [phone] If you have a NON Low profile feeding tube, call with any questions or concerns. During regular office hours call: [phone]. If it is after regular office hours, weekends or holidays, please call [phone] and ask to speak to the Watershed Tender color television console monitor for Interventional Radiology. If you have a low profile ???ESTRELLITA-FAM?? feeding tube, please call Dejah Stauffer RN for any issues: [phone]. Revised 02/23/19 documented in this encounter Medications [...] meter kit. 1 each 0 12/14/2014 Insulin [place], Disposable, (BD INSULIN PEN NEEDLE UF MINI) [...] of : 1960 AGE: 62 y.o. Address: [address] [address] (home) Mobile: Telephone Information: Referring Provider: Fannie Conde REASON FOR VISIT: Order Questions Answers Where will study be performed? [facility] Radiology [120] Is the patient on anticoagulant / antiplatelet therapy ? No Reason for exam and clinical history: 62F with G-tube (last exchanged 03/10), 16- Fr ykh-lsg-zzoktpg (ESTRELLITA). G-tube locked up overnight 04/04 - [facility] pulled the g tube and the [...] G-Tube Exchange local 04/06/23 G-Tube Exchange Local [place] 1604 to procedure room 2 via stretcher. [...] Questions Answers Where will study be performed? [facility] Radiology [120] Is the patient on anticoagulant / antiplatelet therapy ? No Reason for exam and clinical history: 62F with G-tube (last exchanged 03/10), 16- Fr vyf-sbp-irtaaaj (ESTRELLITA). G-tube locked up overnight 04/04 - [facility] pulled the g tube and the balloon exploded in her. They put a barba cath in History of Present Illness: Per chart review, Jennifer Irving is a 62 y.o. female presenting to Interventional Radiology to undergo G-tube check/exchange in the setting of dislodged catheter. Per report, patient presented to [facility] and they pulled the catheter and [...] glucose meter kit. 1 each 0 Insulin [place], Disposable, (BD INSULIN PEN NEEDLE UF MINI) 31 x 3/16 Needle 1 Device by [facility] [...] [facility] IR G-TUBE CHECK/CHANGE 03/10/2023 IR G-Tube Check/Change 03/10/2023 Geronimo Chambers DO [facility] INTERVENTIONL RAD IR [...] at [facility] ENDOSCOPY PRO UP GI ENDOSCOPY, BALL DIL, 30MM N/A 12/24/2022 EGD,WITH DILATION ESOPHAGUS WITH BALLOON,< 30 MM (WRVU 2.67) performed by David Dejesus MDat [facility] ENDOSCOPY PRO UP GI ENDOSCOPY, BALL DIL, 30MM N/A 01/12/2023 EGD,WITH DILATION ESOPHAGUS WITH BALLOON,< 30 MM (WRVU 2.67) performed by David Dejesus MDat [facility] ENDOSCOPY PRO UP GI ENDOSCOPY, BALL DIL, 30MM N/A 02/26/2023 EGD,WITH DILATION ESOPHAGUS WITH BALLOON,< 30 MM (WRVU 2.67) performed by David Dejesus MDat [facility] ENDOSCOPY PRO UP GI ENDOSCOPY, BALL DIL, 30MM N/A 03/16/2023 EGD,WITH DILATION ESOPHAGUS WITH BALLOON,< 30 MM (WRVU 2.67) performed by David Dejesus [facility] ENDOSCOPY PRO UP GI ENDOSCOPY, BALL DIL, 30MM N/A 03/30/2023 EGD,WITH DILATION ESOPHAGUS WITH BALLOON,< 30 MM (WRVU 2.67) performed by David Dejesus [facility] ENDOSCOPY PRO UPPER GI ENDOSCOPY, BIOPSY N/A 04/03/2014 UPPER GASTROINTESTINAL ENDOSCOPY,WITH BIOPSY SINGLE OR MULTIPLE performed by David Dejesus [facility] ENDOSCOPY PRO UPPER GI ENDOSCOPY, BIOPSY [...] SINGLE OR MULTIPLE (WRVU 2.49) performed by Davdi Dejesus MD at [facility] [...] [facility] Social History and Habits: [...] 05/26/2024 1:10 PM EST [place] [address] Gavin Carrillo MD [facility] [place] [address] 06/05/2024 1:20 PM EST Office Visit Cardiology at [address] [address] Milagros Hernandez MD [facility] [place] [address] Scheduled Procedures Name Priority Associated Diagnoses Date/Ti [...] procedure was performed under fluoroscopic guidance. ??A repairer cylinder heads fluoroscopic image was obtained. ??Contrast was injected through the barba catheter and another fluoroscopic image was obtained. ??Through the catheter, an 0.035 stiff angled glide wire was advanced. ??The catheter was removed. ??Over the wire, a new 16-Fr fxb-azu-hdnqzqs (ESTRELLITA) gastrostomy catheter was advanced. ??The retention balloon was inflated with 5 cc of sterile water. ??The gastrostomy was injected with contrast and repeat fluoroscopic image was obtained. ??A sterile dressing was applied. ?? Medications: 2% Lidocaine Jelly Topically Contrast: 10 cc Omnipaque 350, intra-enteric. Fluoroscopic Time: 0.2 minutes. Estimated Blood Loss: < 5 cc. Complications: ??No immediate. Findings: Placement of new 16-Fr mda-ftm-ytuqwhu (ESTRELLITA) catheter positioned within the stomach. ?? [...] mLs documented in this encounter Care Teams Jar Capper Relationship Specialty Start Date End Date Ana Gillespie APRN [address] [place] [address] PCP - General Family Medicine 02/03/19 documented as of this encounter
--- OUTSIDE RECORDS SUMMARY | 2024-05-19 20:27 | XMS_ITS | Encounter Summary ---
Author Organization [facility] Address [facility] [place] [address] Care Team Providers Care Occupational Psychologist Name Role Phone Ana Gillespie APRN Primary Care Provider Encounter Details Date Type Department Care Team (Late st Contact Info) Description 06/18/2023 Orders [place] [address] Noe Cuenca MD [facility] [place] [address] Hypoxemia (Primary Dx) Social History Tobacco Use [...] 05/26/2024 1:10 PM EST Appointment [place] [address] Gavin Carrillo MD [facility] [place] [address] 06/05/2024 1:20 PM EST Office Visit Cardiology at [address] [address] Milagros Hernandez MD [facility] [place] [address] (work) Scheduled Procedures Name Priority Associated Diagnoses [...] PFT FEV1/FVC Pre-BD Z-Score -0.14 COMPAS PFT OWC73-60 Actual Pre-BD 1.66 % COMPAS PFT GDH30-82 Predicted 1.94 % COMPAS PFT PSM10-94 Pre-BD % of Predicted 86 % COMPAS PFT FDD19-07 Pre-BD Z-Score -0.41 COMPAS PFT DLCO Hb [...] Hypoxemia documented in this encounter Care Teams Occupational Psychologist Relationship Specialty Start Date End Date Ana Gillespie APRN [address] [place] [address] PCP - General Family Medicine 02/03/19 documented as of this encounter
--- OUTSIDE RECORDS SUMMARY | 2024-05-19 20:27 | XMS_ITS | Encounter Summary ---
Author Organization [facility] Address [facility] [place] [address] Care Team Providers Care Physician/Allergy/Immunology Name Role Phone Ana Gillespie APRN Primary Care Provider [phone] Encounter Details Date Type Department Care Team (Late st Contact Info) Description 05/25/2023 Orders Only Gastroenterology at [place] [phone] David Dejesus MD [facility] [place] [address] Primary parkinsonism Social History Tobacco Use Types [...] 05/26/2024 1:10 PM EST Appointment [place] [address] Gavin Carrillo MD [facility] [place] [address] 06/05/2024 1:20 PM EST Office Visit Cardiology at [address] [address] Milagros Hernandez MD [facility] [place] [address] Scheduled Procedures Name Priority Associated Diagnoses Date/Ti me EGD, UPPER GI ENDOSCOPY (WRV U 2.09) Peptic stricture of esophagus documented as of this encounter Visit Diagnoses Diagnosis Primary parkinsonism Paralysis agitans documented in this encounter Care Teams Physician/Allergy/Immunology Relationship Specialty Start Date End Date Ana Gillespie APRN [address] [place] [address] PCP - General Family Medicine 02/03/19 documented as of this encounter
--- OUTSIDE RECORDS SUMMARY | 2024-05-19 20:27 | XMS_ITS | Encounter Summary ---
Author Organization [facility] [place] [address] Care Team Providers Care Nurse Emergency Room Name Role Phone Ana Gillespie APRN Primary Care Provider [phone] Encounter Details Date Type Department Care Team (Latest Contact Info) Description 04/12/2023 9:20 AM EST TH Visit (TeleHealth) Cardiology at [address] [place] [address] Milagros Hernandez MD [facility] [place] [address] Stress-induced cardiomyopathy Social History Tobacco Use Types [...] the original note were not included. [facility] [place] [address] CARDIOLOGY OUTPATIENT NOTE PRIMARY CARE PROVIDER: Ana [...] glucose meter kit. 1 each 0 Insulin [place], Disposable, (BD INSULIN PEN NEEDLE UF MINI) [...] esophagus and esophageal stricture. She established with ar in Cardiology clinic in Jan 2023 and presents today for planned follow up. This visit is a Telehealth Visit as the patient was unable to safely make the visit in person due to inclement weather. The patient was located in [place] at the time of the visit. We [...] stricture dilations and unfortunately was admitted to [facility] at the end of February shortly [...] visit. Milagros Hernandez MD Cardiovascular Medicine [facility] 04/12/2023 documented in this encounter Plan of Treatment Upcoming Encounters Date Type Department Care Team (Late st Contact Info) Description 05/26/2024 1:10 PM EST [place] [address] Gavin Carrillo MD [facility] [place] [address] 06/05/2024 1:20 PM EST Office Visit Cardiology at [address] [address] Milagros Hernandez MD [facility] [place] [address] Scheduled Procedures Name Priority Associated Diagnoses Date/Ti me EGD, UPPER GI ENDOSCOPY (WRV U 2.09) Peptic stricture of esophagus documented as of this encounter Visit Diagnoses Diagnosis Stress-induced cardiomyopathy Takotsubo syndrome documented in this encounter Care Teams Nurse Emergency Room Relationship Specialty Start Date End Date Ana Gillespie APRN [address] [place] [address] PCP - General Family Medicine 02/03/19 documented as of this encounter
--- OUTSIDE RECORDS SUMMARY | 2024-05-19 20:27 | XMS_ITS | Encounter Summary ---
Author Organization [facility] Address [facility] [place] [address] Care Team Providers Care Apple Thinner Name Role Phone Ana Gillespie VAUGHN Primary Care Provider [phone] Encounter Details Date Type Department Care Team (Late st Contact Info) Description 06/15/2023 Telephone Pulmonology at [place] [phone] Niru Mary Social History Tobacco Use Types [...] 05/26/2024 1:10 PM EST [place] [address] Gavin Carrillo MD [facility] [place] [address] 06/05/2024 1:20 PM EST Office Visit Cardiology at [address] [address] Milagros Hernandez MD [facility] [place] [address] Scheduled Procedures Name Priority Associated Diagnoses Date/Ti me EGD, UPPER GI ENDOSCOPY (WRV U 2.09) Peptic stricture of esophagus documented as of this encounter Visit Diagnoses Not on filedocumented in this encounter Care Teams Apple Thinner Relationship Specialty Start Date End Date Ana Gillespie APRN [address] [place] [address] PCP - General Family Medicine 02/03/19 documented as of this encounter
--- OUTSIDE RECORDS SUMMARY | 2024-05-19 20:27 | XMS_ITS | Encounter Summary ---
Author Organization [facility] [place] [address] Care Team Providers Care Copy Technician Name Role Phone Ana Gillespie VAUGHN Primary Care Provider [phone] Encounter Details Date Type Department Care Team (Late st Contact Info) Description 04/19/2023 Telephone [place] [phone] Meka Vera Social History Tobacco Use Types [...] 05/26/2024 1:10 PM EST [place] [address] Gavin Carrillo MD [facility] [place] [address] 06/05/2024 1:20 PM EST Office Visit Cardiology at [address] [address] Milagros Hernandez MD [facility] [place] [address] Scheduled Procedures Name Priority Associated Diagnoses Date/Ti me EGD, UPPER GI ENDOSCOPY (WRV U 2.09) Peptic stricture of esophagus documented as of this encounter Visit Diagnoses Not on filedocumented in this encounter Care Teams Copy Technician Relationship Specialty Start Date End Date Ana Gillespie APRN [address] [place] [address] PCP - General Family Medicine 02/03/19 documented as of this encounter
--- OUTSIDE RECORDS SUMMARY | 2024-05-19 20:27 | XMS_ITS | Encounter Summary ---
Author Organization [facility] Address [facility] [place] [address] Care Team Providers Care Reception Manager Name Role Phone Ana Gillespie VAUGHN Primary Care Provider [phone] Encounter Details Date Type Department Care Team (Late st Contact Info) Description 03/30/2023 4:30 PM EST - 03/30/2023 5:00 PM EST Surgery Gastroenterology at [facility] [place] [address] David Dejesus MD [facility] [place] [address] EGD,WITH DILATION ESOPHAGUS WITH BALLOON,< 30 MM [...] the day after the procedure, use an ldca-bjb-yylbqef spray to numb your throat. Sucking on [...] occurs, please contact your Doctor. Please call [phone] before 8pm Mon-Fri with problems, questions or concerns. If you call after 8pm or on weekends, call the Hospital at [phone] and ask to speak to the Email Marketing Intern radio station operator and the zmt operator will contact that person for you. [...] After Visit Summary and more online at [email or web address] If you would like to provide [...] cost to you. Content Version: 12.2 ?? 4033-0494 [employer]. Care instructions adapted under license by [facility]. If you have questions about a medical condition or this instruction, always ask your healthcare professional. [employer] disclaims any warranty or liability for your [...] the day after the procedure, use an bpqi-vne-eprcddb spray to numb your throat. Sucking on [...] occurs, please contact your Doctor. Please call [phone] before 8pm Mon-Fri with problems, questions or concerns. If you call after 8pm or on weekends, call the Hospital at [phone] and ask to speak to the Email Marketing Intern radio station operator and the zmt operator will contact that person for you. When should you call for help? Call [phone] anytime you think you may need emergency [...] After Visit Summary and more online at [email or web address] If you would like to provide [...] cost to you. Content Version: 12.2 ?? 5840-4136 [employer]. Care instructions adapted under license by [facility]. If you have questions about a medical condition or this instruction, always ask your healthcare professional. [employer] disclaims any warranty or liability for your [...] meter kit. 1 each 0 12/14/2014 Insulin [place], Disposable, (BD INSULIN PEN NEEDLE UF MINI) [...] 05/26/2024 1:10 PM [place] [address] Gavin Carrillo MD [facility] [place] [address] 06/05/2024 1:20 PM EST Office Visit Cardiology at [address] [address] Milagros Hernandez MD [facility] [place] [address] Scheduled Procedures Name Priority Associated Diagnoses Date/Ti me EGD, UPPER GI ENDOSCOPY (WRV U 2.09) Peptic stricture of esophagus documented as of this encounter Procedures Procedure Name Priority Date/Time Associated Diagnosis Comments Up Gi Endoscopy, Ball Dil, 30Mm (29532) 03/30/2023 6:02 PM EST Peptic stricture of esophagus UPPER GI ENDOSCOPY Routine 03/30/2023 5: 58 PM EST documented in this encounter Results * UPPER GI ENDOSCOPY (03/30/2023 5:58 PM EST) Pathologist [facility] UPPER GI ENDOSCOPY [facility] Endoscopy Procedure Date: 03/30/2023 5:58 PM ? Patient Name: Jennifer Irving ? N: [id number] ? Date of : 1960 ? Age: 62 ? Order #: [id number] ? Instrument Name: [id number] ? Procedure: ? Upper GI endoscopy Indications: ? Stenosis of the esophagus Providers: ? David Dejesus MD, Jennifer Howell ? Theodora Garibay, ? Fuel Cell Systems Engineer Referring : ?Ana Keith: ? Propofol per [...] PROVATION 03/30/2023 5:58 PM EST Ana Gillespie BACKGROUND CHECK COORDINATOR GENERAL SURGICAL ORD ERABLES PROVATION documented in [...] CRNA) documented in this encounter Care Teams Reception Manager Relationship Specialty Start Date End Date Ana Gillespie APRN [address] [place] [address] PCP - General Family Medicine 02/03/19 documented as of this encounter
--- OUTSIDE RECORDS SUMMARY | 2024-05-19 20:27 | XMS_ITS | Encounter Summary ---
Author Organization [facility] [place] [address] Care Team Providers Care Rivet Sticker Name Role Phone Ana Gillespie APRN Primary Care Provider [phone] Encounter Details Date Type Department Care Team (Late st Contact Info) Description 06/01/2023 Orders Only [place] [phone] David Dejesus MD [facility] [place] [address] Peptic stricture of esophagus Social History Tobacco [...] 1:10 PM EST Appointment [place] [address] Gavin Carrillo MD [facility] [place] [address] 06/05/2024 1:20 PM EST Office Visit Cardiology at [address] [address] Milagros Hernandez MD [facility] [address] Scheduled Procedures Name Priority Associated Diagnoses Date/Ti me EGD, UPPER GI ENDOSCOPY (WRV U 2.09) Peptic stricture of esophagus documented as of this encounter Visit Diagnoses Diagnosis Peptic stricture of esophagus Stricture and stenosis of esophagus documented in this encounter Care Teams Rivet Sticker Relationship Specialty Start Date End Date Ana Gillespie APRN [address] [place] [address] PCP - General Family Medicine 02/03/19 documented as of this encounter
--- OUTSIDE RECORDS SUMMARY | 2024-05-19 20:27 | XMS_ITS | Encounter Summary ---
[place] [address] Care Team Providers Care Bowling Ball Assembler Name Role Phone Ana Gillespie VAUGHN Primary Care Provider [phone] Encounter Details Date Type Department Care Team (Late st Contact Info) Description 05/27/2023 Telephone [place] [address] Chiquita James, RN Social History Tobacco Use [...] 05/26/2024 1:10 PM [place] [address] Gavin Carrillo MD [facility] [place] [address] 06/05/2024 1:20 PM EST Office Visit Cardiology at [address] [address] Milagros Hernandez MD [facility] [place] [address] Scheduled Procedures Name Priority Associated Diagnoses Date/Ti me EGD, UPPER GI ENDOSCOPY (WRV U 2.09) Peptic stricture of esophagus documented as of this encounter Visit Diagnoses Not on filedocumented in this encounter Care Teams Bowling Ball Assembler Relationship Specialty Start Date End Date Ana Gillespie APRN [address] [place] [address] PCP - General Family Medicine 02/03/19 documented as of this encounter
--- OUTSIDE RECORDS SUMMARY | 2024-05-19 20:27 | XMS_ITS | Encounter Summary ---
Author Organization [facility] [place] [address] Care Team Providers Care Brand Sales Consultant Name Role Phone Ana Gillespie APRN Primary Care Provider [phone] Encounter Details Date Type Department Care Team (Late st Contact Info) Description 03/30/2023 Orders Only [place] [address] David Dejesus MD [facility] [place] [address] Peptic stricture of esophagus Social History Tobacco [...] 05/26/2024 1:10 PM EST Appointment [place] [address] Gavin Carrillo MD [facility] [place] [address] 06/05/2024 1:20 PM EST Office Visit Cardiology at [address] [address] Milagros Hernandez MD [facility] [place] [address] Scheduled Orders Name Type Priority Associated Diagnoses [...] esophagus documented in this encounter Care Teams Brand Sales Consultant Relationship Specialty Start Date End Date Ana Gillespie APRN [address] [place] [address] PCP - General Family Medicine 02/03/19 documented as of this encounter
--- OUTSIDE RECORDS SUMMARY | 2024-05-19 20:27 | XMS_ITS | Encounter Summary ---
[place] [address] Care Team Providers Care Pbx Inspector Name Role Phone Ana Gillespie APRN Primary Care Provider [phone] Encounter Details Date Type Department Care Team (Casimiro shetty Contact Info) Description 04/15/2023 Telephone Cardiology at [address] [phone] Chela Walsh, RN Social History Tobacco Use [...] 05/26/2024 1:10 PM [place] [phone] Gavin Carrillo MD [facility] INTERVENTION[place] [address] 06/05/2024 1:20 PM EST Office Visit Cardiology at [address] [address] Milagros Hernandez MD [facility] [place] [address] Scheduled Procedures Name Priority Associated Diagnoses Date/Ti me EGD, UPPER GI ENDOSCOPY (WRV U 2.09) Peptic stricture of esophagus documented as of this encounter Visit Diagnoses Not on filedocumented in this encounter Care Teams Pbx Inspector Relationship Specialty Start Date End Date Ana Gillespie APRN [address] [place] [address] PCP - General Family Medicine 02/03/19 documented as of this encounter
--- OUTSIDE RECORDS SUMMARY | 2024-05-19 20:27 | XMS_ITS | Encounter Summary ---
Author Organization [facility] Address [facility] [place] [address] Care Team Providers Care Injection Molding Process Technician Name Role Phone Ana Gillespie APRN Primary Care Provider [phone] Encounter Details Date Type Department Care Team (Late st Contact Info) Description 07/02/2023 [place] [phone] Zhang Pope MD [facility] [place] [address] Social History Tobacco Use Types Packs/Day Years [...] Provider: Dr. Tae Abrams Patient Location: [facility] Presenting Symptoms per OSH: Jennifer Irving [...] 2023. The patient presented today to [facility] with cough and shortness of breath. The working diagnosis at [facility] is a COPD exacerbation. Cardiology was contacted as the patient's troponin had increased over three hours from 203 to 434. The patient has sharp generalized chest pain that occurs when she coughs but does not have chest pressure. ECG is similar to previous. The patient is on BiPAP and the provider at [facility] plans to admit her locally with [...] a TTE performed November 2022 at [facility] with LVEF that nearly completely recovered. [...] in the patient condition. Zhang Pope MD [employer] documented in this encounter Plan of Treatment Upcoming Encounters Date Type Department Care Team (Late st Contact Info) Description 05/26/2024 1:10 PM EST App[place]ment [place] [address] Gavin Carrillo MD [facility] [address] [place] [address] 06/05/2024 1:20 PM EST Office Visit Cardiology at [address] [address] Milagros Hernandez MD [facility] [place] [address] Scheduled Procedures Name Priority Associated Diagnoses Date/Ti me EGD, UPPER GI ENDOSCOPY (WRV U 2.09) Peptic stricture of esophagus documented as of this encounter Visit Diagnoses Not on filedocumented in this encounter Care Teams Injection Molding Process Technician Relationship Specialty Start Date End Date Ana Gillespie APRN [address] [place] [address] PCP - General Family Medicine 02/03/19 documented as of this encounter
--- OUTSIDE RECORDS SUMMARY | 2024-05-19 20:27 | XMS_ITS | Encounter Summary ---
Author Organization [facility] [place] [address] Care Team Providers Care Caser Name Role Phone Ana Gillespie VAUGHN Primary Care Provider [phone] Reason for Visit * Reason Onset Date Comments Questions 04/13/2023 Low BP reading Encounter Details Date Type Department Care Team (Late st Contact Info) Description 04/13/2023 Telephone Cardiology at [address] [phone] Chela Walsh, RN Questions (Low BP reading) [...] 05/26/2024 1:10 PM [place] [address] Gavin Carrillo MD [facility] [address] INTER[place] [address] 06/05/2024 1:20 PM EST Office Visit Cardiology at [address] [address] Milagros Hernandez MD [facility] [place] [address] Scheduled Procedures Name Priority Associated Diagnoses Date/Ti me EGD, UPPER GI ENDOSCOPY (WRV U 2.09) Peptic stricture of esophagus documented as of this encounter Visit Diagnoses Not on filedocumented in this encounter Care Teams Caser Relationship Specialty Start Date End Date Ana Gillespie APRN [address] [place] [address] PCP - General Family Medicine 02/03/19 documented as of this encounter
--- OUTSIDE RECORDS SUMMARY | 2024-05-19 20:27 | XMS_ITS | Encounter Summary ---
Author Organization [facility] Address [facility] [place] [address] Care Team Providers Care Geospatial Analyst Name Role Phone Ana Gillespie VAUGHN Primary Care Provider [phone] Encounter Details Date Type Department Care Team (Latest Contact Info) Description 04/30/2023 1:29 PM EST - 04/30/2023 4:43 PM EST Hospital Encounter Gastroenterology at [facility] [place] [place] [address] David Dejesus MD [facility] [place] [address] Discharge Disposition: Home Social History Tobacco Use [...] the day after the procedure, use an dpqw-dlw-efqlzhy spray to numb your throat. Sucking on [...] occurs, please contact your Doctor. Please call [phone] before 8pm Mon-Fri with problems, questions or concerns. If you call after 8pm or on weekends, call the Hospital at [phone] and ask to speak to the Security Patrol Officer masonry supervisor and the signal operator will contact that person for you. When should you call for help? Call [phone] anytime you think you may need emergency [...] more? Visit our health information library at [email or web address] You can also view health information on [employer], your personal patient account. Log in or sign uptoday. Enter J014 in the search box to learn more about Esophageal Dilation: What to Expect at Home. Current as of: December 18, 2018Content Version: 12.4 ?? [id number] [place]. Care instructions adapted under license by [facility]. If you have questions about a medical condition or this instruction, always ask your healthcare professional. [employer] disclaims any warranty or liability for your [...] meter kit. 1 each 0 12/14/2014 Insulin [place], Disposable, (BD INSULIN PEN NEEDLE UF [...] 05/26/2024 1:10 PM [place] [phone] Gavin Carrillo MD [facility] [place] [address] 06/05/2024 1:20 PM EST Office Visit Cardiology at [address] [phone] Milagros Hernandez MD [facility] [place] [address] Scheduled Procedures Name Priority Associated Diagnoses Date/Ti me EGD, UPPER GI ENDOSCOPY (WRV U 2.09) Peptic stricture of esophagus documented as of this encounter Procedures Procedure Name Priority Date/Time Associated Diagnosis Comments POCT GLUCOSE Routine 04/30/2023 4:13 PM EST Up Gi Endoscopy, Ball Dil, 30Mm ([id number]) 04/30/2023 3:25 PM EST Peptic stricture of esophagus UPPER GI ENDOSCOPY Routine 04/30/2023 3: 14 PM EST POCT GLUCOSE Routine 04/30/2023 2:09 PM EST documented in this encounter Results * POCT Glucose (04/30/2023 4:13 PM EST) Glucose, POC 81 65 - 199 mg/dL [facility] Comment: Supplemental ranges: <140 mg/dL before meals <180 mg/dL all other times of the day Blood 04/30/2023 4:13 PM EST 04/30/2023 4:13 PM EST David Dejesus MD POINT OF CARE TEST ORDERABLES Performing Organization Address City/State/[facility] Co de Phone Number [facility] [place] [address] * UPPER GI ENDOSCOPY (04/30/2023 3:14 PM EST) UPPER GI ENDOSCOPY [facility] Endoscopy Procedure Date: 04/30/2023 3:14 PM ? Patient Name: Jennifer Irving ? N: [id number] ? Date of : 1960 ? Age: 62 ? Order #: [id number] ? Instrument Name: [id number] ? Procedure: ? Upper GI endoscopy Indications: [...] PROVATION 04/30/2023 3:14 PM EST Ana Gillespie MACHINE [facility] OR[facility] ERABLES PROVATION * POCT Glucose (04/30/2023 2:09 PM EST) Glucose, POC 75 65 - 199 mg/dL [facility] Comment: Supplemental ranges: <140 mg/dL before meals <180 mg/dL all other times of the day Blood 04/30/2023 2:09 PM EST 04/30/2023 2:09 PM EST David Dejesus MD POINT OF CARE TEST ORDERABLES [facility] [place] [address] documented in this encounter Visit Diagnoses Not [...] ERI) documented in this encounter Care Teams Geospatial Analyst Relationship Specialty Start Date End Date Ana Gillespie APRN [address] [place] [address] PCP - General Family Medicine 02/03/19 documented as of this encounter
--- OUTSIDE RECORDS SUMMARY | 2024-05-19 20:27 | XMS_ITS | Encounter Summary ---
Author Organization [facility] [place] [address] Care Team Providers Care Visual Merchandiser Name Role Phone Ana Gillespie VAUGHN Primary Care Provider [phone] Reason for Referral * Diagnostic Test (Routine) - Closed Specialty Diagnoses / Procedures Referred By Esperanza rodríguez Referred To Contact Radiology Diagnoses Neuroleptic-induced parkinsonism Procedures IR G-Tube Check/Change Fannie Conde PA [facility] [place] [address] [place] [address] Referral ID Status Reason Start Date Expiration Date V isits Requested Visits Authorized [id number] Closed Specialty Service Requested 04/05/2023 10/03/2024 1 1 Encounter Details Date Type Department Care Team (Late st Contact Info) Description 04/05/2023 Notes [place] [address] Fannie Conde PA [facility] [place] [address] Social History Tobacco Use Types Packs/Day Years [...] 05/26/2024 1:10 PM [place] [address] Gavin Carrillo MD [facility] DR INTERVENTIONAL RADIOLOGY [place], [place] [phone] 06/05/2024 1:20 PM EST Office Visit Cardiology at [address] [phone] Milagros Hernandez MD [facility] [place] [address] Scheduled Procedures Name Priority Associated [...] procedure was performed under fluoroscopic guidance. ??A global program manager fluoroscopic image was obtained. ??Contrast was injected through the barba catheter and another fluoroscopic image was obtained. ??Through the catheter, an 0.035 stiff angled glide wire was advanced. ??The catheter was removed. ??Over the wire, a new 16-Fr atp-jzk-ncocvxl (ESTRELLITA) gastrostomy catheter was advanced. ??The retention balloon was inflated with 5 cc of sterile water. ??The gastrostomy was injected with contrast and repeat fluoroscopic image was obtained. ??A sterile dressing was applied. ?? Medications: 2% Lidocaine Jelly Topically Contrast: 10 cc Omnipaque 350, intra-enteric. Fluoroscopic Time: 0.2 minutes. Estimated Blood Loss: < 5 cc. Complications: ??No immediate. Findings: Placement of new 16-Fr gob-jjt-eoayzts (ESTRELLITA) catheter positioned within the stomach. ?? [...] Parkinsonism documented in this encounter Care Teams Visual Merchandiser Relationship Specialty Start Date End Date Ana Gillespie APRN [address] [place] [address] PCP - General Family Medicine 02/03/19 documented as of this encounter
--- OUTSIDE RECORDS SUMMARY | 2024-05-19 20:27 | XMS_ITS | Encounter Summary ---
Author Organization [facility] Address [facility] [place] [address] Care Team Providers Care Grades 1 6 Tutor Name Role Phone Ana Gillespie APRN Primary Care Provider [phone] Encounter Details Date Type Department Care Team (Late st Contact Info) Description 06/01/2023 9:02 AM EST Anesthesia [place] [phone] Kit Dutta MD [facility] DR [place] [address] Nichelle Dodson MD Anesthesia Record Procedure Summary Procedure Name Responsible [...] by Sergey Jordan RN PIV 06/01/23; 0836; zmvx-ioz-jxopxe catheter system; 22 gauge, 1 in length; cephalic vein (lateral side of arm), left; DR DUTTA; intradermal injection; 3 (1 by rhys reyes 2 by us); 06/01/23; 1025 06/01/23 0836 by Mary Peace RN 06/01/23 1025 by Ayo Murphy RN ETT Mask Ventilation: Monty mcclain (1); ETT Type: Cuffed; ETT Size: 7 [...] 06/01/23 Room / Location: [facility] ENDO 2 / [facility] ENDOSCOPY Anesthesia Start: 901 Anesthesia Stop: 951 Procedure: EGD,WITH DILATION ESOPHAGUS WITH BALLOON,< 30 MM (WRVU 2.67) (Trunk) Diagnosis: Peptic stricture of esophagus (repeat petic stricture dilation - please schedule within two weeks) Surgeons: David Dejesus MD Responsible Provider: Kit Dutta MD Anesthesia Type: MAC ASA Status: 3 All Anesthesia Providers: Anesthesiologist: Kit Dutta MD DIESEL ENGINE ENGINEER: Cristine Gomez CRNA Vitals Value Taken Time BP 107/45 06/01/23 1020 Temp Pulse Resp 18 06/01/23 1020 SpO2 94 % 06/01/23 1021 Pain Level 0 06/01/23 1020 Vitals shown include unfiled device data. Patient Location: PACU/[facility] Level of Consciousness: Conscious but Sleepy [...] 11/27/2022 Hang Cooper PA [facility] INTERVENTIONL RAD ??? IR G-TUBE CHECK/CHANGE 03/10/2023 IR G-Tube Check/Change 03/10/2023 Geronimo Chambers, DO [facility] INTERVENTIONL RAD ??? IR G-TUBE CHECK/CHANGE 04/06/2023 IR G-Tube Check/Change 04/06/2023 Gavin Carrillo MD [facility] INTERVENTIONL RAD ??? IR G-TUBE CHECK/CHANGE 05/09/2023 IR G-Tube Check/Change [facility] INTERVENTIONL RAD ??? IR G-TUBE PLACEMENT 09/11/2022 IR G-Tube Placement 09/11/2022 Moustapha Hart MD [facility] INTERVENTIONL RAD ??? IR SUTURE RELEASE 09/25/2022 IR Suture Release 09/25/2022 Yoselin Ghosh, ROSLYN [facility] INTERVENTIONL RAD ??? PERCUTANEOUS GASTROSTOMY N/A 09/11/2022 PERCUTANEOUS GASTROSTOMY performed by Aiden Flores MD at [facility] CATY ??? PRO COLONOSCOPY, BIOPSY N/A 03/20/2016 COLONOSCOPY FLEXIBLE, WITH BX performed by David Dejseus MD at [facility] ENDOSCOPY ??? PRO COLONOSCOPY, DIAGNOSTIC N/A 03/01/2020 COLONOSCOPY, DIAGNOSTIC performed by David Dejesus MD at [facility] ENDOSCOPY ??? PRO ENDOSCOPIC US EXAM, ESOPH N/A 03/31/2022 UPPER EUS- ENDOSCOPIC ULTRASOUND performed by David Dejesus MD at [facility] ENDOSCOPY ??? PRO UP GI ENDOSCOPY, BALL DIL, 30MM N/A 12/24/2022 EGD,WITH DILATION ESOPHAGUS WITH BALLOON,< 30 MM (WRVU 2.67) performed by David Dejesus [facility] ENDOSCOPY ??? PRO UP GI ENDOSCOPY, BALL DIL, 30MM N/A 01/12/2023 EGD,WITH DILATION ESOPHAGUS WITH BALLOON,< 30 MM (WRVU 2.67) performed by David Dejesus [facility] ENDOSCOPY ??? PRO UP GI ENDOSCOPY, BALL DIL, 30MM N/A 02/26/2023 EGD,WITH DILATION ESOPHAGUS WITH BALLOON,< 30 MM (WRVU 2.67) performed by David Dejesus [facility] ENDOSCOPY ??? PRO UP GI ENDOSCOPY, BALL DIL, 30MM N/A 03/16/2023 EGD,WITH DILATION ESOPHAGUS WITH BALLOON,< 30 MM (WRVU 2.67) [facility]?? PRO UP GI ENDOSCOPY, BALL DIL, 30MM N/A 03/30/2023 EGD,WITH DILATION ESOPHAGUS WITH BALLOON,< 30 MM (WRVU 2.67) performed by David Dejesus MDat [facility] ENDOSCOPY ??? PRO UP GI ENDOSCOPY, BALL DIL, 30MM N/A 04/30/2023 EGD,WITH DILATION ESOPHAGUS WITH BALLOON,< 30 MM (WRVU 2.67) [facility] ??? PRO UPPER GI ENDOSCOPY, BIOPSY N/A 04/03/2014 UPPER GASTROINTESTINAL ENDOSCOPY,WITH BIOPSY SINGLE OR MULTIPLE [facility] ??? PRO UPPER GI ENDOSCOPY, BIOPSY N/A 03/20/2016 EGD WITH BIOPSY performed by David Dejesus MD at [facility] ENDOSCOPY ??? PRO UPPER GI ENDOSCOPY, BIOPSY N/A 11/22/2018 EGD WITH BIOPSY (WRVU 2.49) performed by David Dejesus MD at [facility] ENDOSCOPY ??? PRO UPPER GI ENDOSCOPY, BIOPSY N/A 03/01/2020 UPPER GASTROINTESTINAL ENDOSCOPY,WITH BIOPSY SINGLE OR MULTIPLE (WRVU 2.49) performed by David Dejesus MD at [facility] ENDOSCOPY ??? PRO UPPER GI ENDOSCOPY, BIOPSY N/A 09/23/2021 EGD WITH BIOPSY (WRVU 2.49) performed by David Dejesus MD at [facility] ENDOSCOPY ??? PRO UPPER GI ENDOSCOPY, BIOPSY N/A 03/31/2022 EGD WITH BIOPSY (WRVU 2.49) performed by David Dejesus MD at [facility] ENDOSCOPY ??? PRO UPPER GI ENDOSCOPY, BIOPSY N/A 07/03/2022 EGD WITH BIOPSY (WRVU 2.49) performed by David Dejesus MD at [facility] ENDOSCOPY ??? PRO UPPER GI ENDOSCOPY, DIAGNOSTIC N/A 04/03/2014 EGD, UPPER GI ENDOSCOPY performed by David Dejesus MD at [facility] ENDOSCOPY ??? PRO UPPER GI ENDOSCOPY, DIAGNOSTIC N/A 03/01/2020 EGD, UPPER GI ENDOSCOPY performed by David Dejesus MD at [facility] ENDOSCOPY ??? PRO UPPER GI ENDOSCOPY, DIAGNOSTIC N/A 09/09/2022 EGD, UPPER GI ENDOSCOPY (WRVU 2.09) performed by Ayo Russ MD at [facility] MAIN OR Social History Tobacco Use [...] - Other Informed Consent: Plan discussed with DIESEL ENGINE ENGINEER. Anesthesia Screening documented in this encounter Plan of Treatment Upcoming Encounters Date Type Department Care Team (Late st Contact Info) Description 05/26/2024 1:10 PM [place] [address] Gavin Carrillo MD [facility] [place] [address] 06/05/2024 1:20 PM EST Office Visit Cardiology at [address] [phone] Milagros Hernandez MD [facility] CARDIOLOGY [place] [id number] Scheduled Procedures Name Priority Associated Diagnoses Date/Ti [...] mg documented in this encounter Care Teams Grades 1 6 Tutor Relationship Specialty Start Date End Date Ana Gillespie APRN [address] [place] [address] PCP - General Family Medicine 02/03/19 documented as of this encounter
--- OUTSIDE RECORDS SUMMARY | 2024-05-19 20:27 | XMS_ITS | Encounter Summary ---
Author Organization [facility] Address [facility] [place] [address] Care Team Providers Care Electrical And Instrumentation Manager Name Role Phone Ana Gillespie APRN Primary Care Provider [phone] Reason for Referral * Consultation (Routine) - Authorized Specialty Diagnoses / Procedures Referred By Esperanza rodríguez Referred To Contact Pulmonology Diagnoses Hypoxemia Ana Gillespie APRN [address] [place] [address] Noe Cuenca MD [facility] [place] [address] Referral ID Status Reason Start Date Expiration Date Visits Requested Visits Authorized [id number] Authorized Consult, Test & Treat PCP Updated and/or Approved 05/27/2023 05/26/2024 6 6 Encounter Details Date Type Department Care Team (Late Contact Info) Description 05/27/2023 Transcribe Orders eD Incoming Referrals [phone] Ana Gillespie APRN [address] [place], [place] [address] Hypoxemia Social History Tobacco Use Types Packs/Day [...] 05/26/2024 1:10 PM [place] [address] Gavin Carrillo MD [facility] [place] [address] 06/05/2024 1:20 PM EST Office Visit Cardiology at [address] [address] Milagros Hernandez MD [facility] [place] [address] Scheduled Procedures Name Priority Associated Diagnoses Date/Ti me EGD, UPPER GI ENDOSCOPY (WRV U 2.09) Peptic stricture of esophagus Scheduled Referrals Name Type Priority Associated Diagnoses Order Schedule Referral to Pulmonology Outpatient Referral Routine Hypoxemia Ordered: 05/27/2023 documented as of this encounter Visit Diagnoses Diagnosis Hypoxemia documented in this encounter Care Teams Electrical And Instrumentation Manager Relationship Specialty Start Date End Date Ana Gillespie APRN [address] [place] [address] PCP - General Family Medicine 02/03/19 documented as of this encounter
--- OUTSIDE RECORDS SUMMARY | 2024-05-19 20:27 | XMS_ITS | Encounter Summary ---
Author Organization [facility] [place] [address] Care Team Providers Care Manager Sterile Processing Name Role Phone Ana Gillespie RUG SAMPLE BEVELER Primary Care Provider [phone] Encounter Details Date Type Department Care Team (Late st Contact Info) Description 05/05/2023 [facility] [place] [address] Parris Maravilla Social History Tobacco Use Types [...] - 05/05/2023 10:15 AM EST Jennifer Irving [id number] Diagnosis/Indication: repeat petic stricture dilation - please [...] your procedure. Who will likely be your pickup driver for the procedure? *Please Verify the [...] 05/26/2024 1:10 PM EST [place] [phone] Gavin Carrillo MD [facility] [address] INTER[place]ION[place] [address] 06/05/2024 1:20 PM EST Office Visit Cardiology at [address] [address] Milagros Hernandez MD [facility] [place] [address] Scheduled Procedures Name Priority Associated Diagnoses Date/Ti me EGD, UPPER GI ENDOSCOPY (WRV U 2.09) Peptic stricture of esophagus documented as of this encounter Visit Diagnoses Not on filedocumented in this encounter Care Teams Manager Sterile Processing Relationship Specialty Start Date End Date Ana Gillespie APRN [address] [place] [address] PCP - General Family Medicine 02/03/19 documented as of this encounter
--- OUTSIDE RECORDS SUMMARY | 2024-05-19 20:27 | XMS_ITS | Encounter Summary ---
Author Organization [facility] Address [facility] [place] [address] Care Team Providers Care Seismographer Name Role Phone Ana Gillespie VAUGHN Primary Care Provider [phone] Reason for Referral * Diagnostic Test (Routine) - Closed Specialty Diagnoses / Procedures Referred By Esperanza rodríguez Referred To Contact Radiology Diagnoses Problem with gastrostomy tube Procedures IR G-Tube Check/Change Jaime Chavez MD [facility] [place] [address] [place] [address] Referral ID Status Reason Start Date Expiration Date V isits Requested Visits Authorized [id number] Closed Specialty Service Requested 05/09/2023 11/06/2024 1 1 Encounter Details Date Type Department Care Team (Late st Contact Info) Description 05/09/2023 Orders [place] [address] Jaime Chavez MD [facility] [place] [address] Encounter for screening mammogram for breast cancer; [...] PCP: Ana Gillespie APRN Referring Provider: Dr. Chaevz Planned Procedure: Planned procedure: IR G tube [...] out for which they sought treatment at [facility]. A barba was placed into the tract. [...] Check/Change 11/27/[address] [facility] INTER[facility] RAD IR G-TUBE CHECK/CHANGE 03/10/2023 IR G-Tube Check/Change 03/10/[address] [facility] RAD IR G-TUBE CHECK/CHANGE 04/06/2023 IR G-Tube Check/Change 04/06/[address] [facility] RAD IR G-TUBE PLACEMENT 09/11/2022 IR G-Tube Placement 09/11/[address] [facility] RAD IR SUTURE RELEASE 09/25/2022 IR Suture Release 09/25/[address] [facility] RAD PERCUTANEOUS GASTROSTOMY N/A 09/11/2022 PERCUTANEOUS GASTROSTOMY performed by Aiden Flores MD at [facility] CATY PRO COLONOSCOPY, BIOPSY N/A 03/20/2016 COLONOSCOPY FLEXIBLE, WITH BX performed by David Dejesus MD at [facility] ENDOSCOPY PRO COLONOSCOPY, DIAGNOSTIC N/A 03/01/2020 COLONOSCOPY, DIAGNOSTIC performed by David Dejesus MD at [facility] ENDOSCOPY PRO ENDOSCOPIC US EXAM, ESOPH N/A 03/31/2022 UPPER EUS- ENDOSCOPIC ULTRASOUND performed by David Dejesus MD at [facility] ENDOSCOPY PRO UP GI ENDOSCOPY, BALL DIL, 30MM N/A 12/24/2022 EGD,WITH DILATION ESOPHAGUS WITH BALLOON,< 30 MM (WRVU 2.67) performed by David Dejesus [facility] ENDOSCOPY PRO UP GI ENDOSCOPY, BALL DIL, 30MM N/A 01/12/2023 EGD,WITH DILATION ESOPHAGUS WITH BALLOON,< 30 MM (WRVU 2.67) performed by David Dejesus [facility] ENDOSCOPY PRO UP GI ENDOSCOPY, BALL DIL, 30MM N/A 02/26/2023 EGD,WITH DILATION ESOPHAGUS WITH BALLOON,< 30 MM (WRVU 2.67) performed by David Dejesus [facility] ENDOSCOPY PRO UP GI ENDOSCOPY, BALL DIL, 30MM N/A 03/16/2023 EGD,WITH DILATION ESOPHAGUS WITH BALLOON,< 30 MM (WRVU 2.67) performed by David Dejesus [facility] ENDOSCOPY PRO UP GI ENDOSCOPY, BALL DIL, 30MM N/A 03/30/2023 EGD,WITH DILATION ESOPHAGUS WITH BALLOON,< 30 MM (WRVU 2.67) performed by David Dejesus [facility] ENDOSCOPY PRO UP GI ENDOSCOPY, BALL DIL, 30MM N/A 04/30/2023 EGD,WITH DILATION ESOPHAGUS WITH BALLOON,< 30 MM (WRVU 2.67) performed by David Dejesus [facility] ENDOSCOPY PRO UPPER GI ENDOSCOPY, BIOPSY N/A 04/03/2014 UPPER GASTROINTESTINAL ENDOSCOPY,WITH BIOPSY SINGLE OR MULTIPLE performed by David Dejesus [facility] ENDOSCOPY PRO UPPER GI ENDOSCOPY, BIOPSY N/A 03/20/2016 EGD WITH BIOPSY performed by David Dejesus MD at [facility] ENDOSCOPY PRO UPPER GI ENDOSCOPY, BIOPSY N/A 11/22/2018 EGD WITH BIOPSY (WRVU 2.49) performed by David Dejesus MD at [facility] ENDOSCOPY PRO UPPER GI ENDOSCOPY, BIOPSY N/A 03/01/2020 UPPER GASTROINTESTINAL ENDOSCOPY,WITH BIOPSY SINGLE OR MULTIPLE (WRVU 2.49) performed by David Dejesus MD at [facility] ENDOSCOPY PRO UPPER GI ENDOSCOPY, BIOPSY N/A 09/23/2021 EGD WITH BIOPSY (WRVU 2.49) performed by David Dejesus MD at [facility] ENDOSCOPY PRO UPPER GI ENDOSCOPY, BIOPSY N/A 03/31/2022 EGD WITH BIOPSY (WRVU 2.49) performed by David Dejesus MD at [facility] ENDOSCOPY PRO UPPER GI ENDOSCOPY, BIOPSY N/A 07/03/2022 EGD WITH BIOPSY (WRVU 2.49) performed by David Dejesus MD at [facility] ENDOSCOPY PRO UPPER GI ENDOSCOPY, DIAGNOSTIC N/A 04/03/2014 EGD, UPPER GI ENDOSCOPY performed by David Dejesus MD at [facility] ENDOSCOPY PRO UPPER GI ENDOSCOPY, DIAGNOSTIC N/A 03/01/2020 EGD, UPPER GI ENDOSCOPY performed by David Dejesus MD at [facility] ENDOSCOPY PRO UPPER GI ENDOSCOPY, DIAGNOSTIC N/A 09/09/2022 EGD, UPPER GI ENDOSCOPY (WRVU 2.09) performed by Ayo Russ MD at [facility] MAIN OR Medications: Current Outpatient Medications on [...] daily. 180 tablet 3 Blood Sugar Diagnostic ([employer] ULTRA TEST) Strip 1 each by Other [...] glucose meter kit. 1 each 0 Insulin [place], Disposable, (BD INSULIN PEN NEEDLE UF MINI) [...] PM EST [place] [phone] Gavin Carrillo MD [facility] [place] [address] 06/05/2024 1:20 PM EST Office Visit Cardiology at [address] [phone] Milagros Hernandez MD [facility] [place] [address] Scheduled Procedures Name Priority Associated Diagnoses Date/Ti nc EGD, UPPER GI ENDOSCOPY (WRV U 2.09) [...] tube documented in this encounter Care Teams Seismographer Relationship Specialty Start Date End Date Ana Gillespie APRN [address] [place] [address] PCP - General Family Medicine 02/03/19 documented as of this encounter
--- OUTSIDE RECORDS SUMMARY | 2024-05-19 20:27 | XMS_ITS | Encounter Summary ---
Author Organization [facility] Address [facility] [place] [address] Care Team Providers Care Cementer Name Role Phone Ana Gillespie VAUGHN Primary Care Provider [phone] Encounter Details Date Type Department Care Team (Late st Contact Info) Description 05/08/2023 Notes [place] [phone] Nisha Chavez MD [facility] [address] [place]VENT[place] [address] Social History Tobacco Use Types Packs/Day Years [...] tube was dislodged andcare was sought at [facility]. A barba catheter was placed into [...] through the barba.He should be able to pickle cutter a compatible syringe at his closest hospital. [...] 05/26/2024 1:10 PM [place] [address] Gavin Carrillo MD [facility] [place] [address] 06/05/2024 1:20 PM EST Office Visit Cardiology at [address] [address] Milagros Hernandez MD [facility] [place] [address] Scheduled Procedures Name Priority Associated Diagnoses Date/Ti me EGD, UPPER GI ENDOSCOPY (WRV U 2.09) Peptic stricture of esophagus documented as of this encounter Visit Diagnoses Not on filedocumented in this encounter Care Teams Cementer Relationship Specialty Start Date End Date Ana Gillespie APRN [address] [place] [address] PCP - General Family Medicine 02/03/19 documented as of this encounter
--- OUTSIDE RECORDS SUMMARY | 2024-05-19 20:27 | XMS_ITS | Encounter Summary ---
Author Organization [facility] Address [facility] [place] [address] Care Team Providers Care Clinical Trial Associate Name Role Phone Ana Gillespie VAUGHN Primary Care Provider [phone] Encounter Details Date Type Department Care Team (Latest Contact Info) Description 03/30/2023 2:12 PM EST - 03/30/2023 7:04 PM EST Hospital Encounter Gastroenterology at [facility] [place] [address] David Dejesus MD [facility] [place] [place] [address] Discharge Disposition: Home Social History Tobacco Use [...] the day after the procedure, use an nwkz-ifn-uwcrdpu spray to numb your throat. Sucking on [...] occurs, please contact your Doctor. Please call [phone] before 8pm Mon-Fri with problems, questions or concerns. If you call after 8pm or on weekends, call the Hospital at [phone] and ask to speak to the Acupuncturist milk wagon driver and the sticker machine operator will contact that person for [...] any problems. Where can you learn more? [facility] View your After Visit Summary and more online at [email or web address] If you would like to provide feedback about your hospital experience, please call the Office of Patient and Family Relations at . If you have received this After Visit Summary in error, please immediately return it in person to the department, or notify the [facility] Privacy Office by calling toll free at between the hours of 8AM and 5PM to arrange for our retrieval of the documents at no cost to you. Content Version: 12.2 ?? 1194-6234 [employer]. Care instructions adapted under license by [facility]. If you have questions about a medical condition or this instruction, always ask your healthcare professional. [employer] disclaims any warranty or liability for your [...] the day after the procedure, use an kpkh-akx-nhbetbb spray to numb your throat. Sucking on [...] occurs, please contact your Doctor. Please call [phone] before 8pm Mon-Fri with problems, questions or concerns. If you call after 8pm or on weekends, call the Hospital at [phone] and ask to speak to the Acupuncturist milk wagon driver and the sticker machine operator will contact that person for [...] any problems. Where can you learn more? [facility] View your After Visit Summary and more online at [email or web address] If you would like to provide feedback about your hospital experience, please call the Office of Patient and Family Relations at . If you have received this After Visit Summary in error, please immediately return it in person to the department, or notify the [facility] Privacy Office by calling toll free at between the hours of 8AM and 5PM to arrange for our retrieval of the documents at no cost to you. Content Version: 12.2 ?? 3058-7304 [employer]. Care instructions adapted under license by [facility]. If you have questions about a medical condition or this instruction, always ask your healthcare professional. [employer] disclaims any warranty or liability for your [...] 05/26/2024 1:10 PM [place] [address] Gavin Carrillo MD [facility] [place] [address] 06/05/2024 1:20 PM EST Office Visit Cardiology at [address] [phone] Milagros Hernandez MD [facility] [place] [address] Scheduled Procedures Name Priority Associated Diagnoses Date/Ti me EGD, UPPER GI ENDOSCOPY (WRV U 2.09) Peptic stricture of esophagus documented as of this encounter Procedures Procedure Name Priority Date/Time Associated Diagnosis Comments Up Gi Endoscopy, Ball Dil, 30Mm (54133) 03/30/2023 6:02 PM EST Peptic stricture of esophagus UPPER GI ENDOSCOPY Routine 03/30/2023 5: 58 PM EST documented in this encounter Results * UPPER GI ENDOSCOPY (03/30/2023 5:58 PM EST) Pathologist [facility] UPPER GI ENDOSCOPY [facility] Endoscopy Procedure Date: 03/30/2023 5:58 PM ? Patient Name: Jennifer Irving ? N: [id number] ? Date of : 1960 ? Age: 62 ? Order #: [id number] ? Instrument Name: [id number] ? Procedure: ? Upper GI endoscopy Indications: ? Stenosis of the esophagus Providers: ? David Dejesus MD, Jennifer Howell ? Theodora Garibay, ? Heart Coordinator Referring MD: ?Ana OpenDrive Medicines: ? Propofol per Anesthesia Complications: ? [...] PROVATION 03/30/2023 5:58 PM EST Ana Gillespie TRUCK SERVICE TECHNICIAN GENERAL SURGICAL ORD ERABLES PROVATION documented in [...] CRNA) documented in this encounter Care Teams Clinical Trial Associate Relationship Specialty Start Date End Date Ana Gillespie APRN [address] [place] [address] PCP - General Family Medicine 02/03/19 documented as of this encounter
--- OUTSIDE RECORDS SUMMARY | 2024-05-19 20:27 | XMS_ITS | Encounter Summary ---
Author Organization [facility] [place] [address] Care Team Providers Care Emergency Vehicle Technician Name Role Phone Ana Gillespie VAUGHN Primary Care Provider [phone] Encounter Details Date Type Department Care Team (Late st Contact Info) Description 04/19/2023 Telephone [place] [address] Juice Maxwell RN Social History [...] is requesting a call back to reschedule. [phone] Forwarded to scheduling. documented in this encounter Plan of Treatment Upcoming Encounters Date Type Department Care Team (Late st Contact Info) Description 05/26/2024 1:10 PM EST Appointment [place] [address] Gavin Carrillo MD [facility] [place] [address] 06/05/2024 1:20 PM EST Office Visit Cardiology at [address] [address] Milagros Hernandez MD [facility] [place] [address] Scheduled Procedures Name Priority Associated Diagnoses Date/Ti me EGD, UPPER GI ENDOSCOPY (WRV U 2.09) Peptic stricture of esophagus documented as of this encounter Visit Diagnoses Not on filedocumented in this encounter Care Teams Emergency Vehicle Technician Relationship Specialty Start Date End Date Ana Gillespie APRN [address] [place] [address] PCP - General Family Medicine 02/03/19 documented as of this encounter
--- OUTSIDE RECORDS SUMMARY | 2024-05-19 20:27 | XMS_ITS | Encounter Summary ---
Author Organization [facility] Address [facility] [place] [address] Care Team Providers Care Manager Domestic Name Role Phone Ana Gillespie VAUGHN Primary Care Provider Encounter Details Date Type Department Care Team (Late st Contact Info) Description 05/25/2023 Telephone [place] [address] Chiquita James, RN Social History [...] 1:10 PM EST Appointment [place] [address] Gavin Carrillo MD [facility] [place] [address] 06/05/2024 1:20 PM EST Office Visit Cardiology at [address] [phone] Milagros Hernandez MD [facility] [place] [place] [address] Scheduled Procedures Name Priority Associated Diagnoses Date/Ti me EGD, UPPER GI ENDOSCOPY (WRV U 2.09) Peptic stricture of esophagus documented as of this encounter Visit Diagnoses Not on filedocumented in this encounter Care Teams Manager Domestic Relationship Specialty Start Date End Date Ana Gillespie APRN [address] [place] [address] PCP - General Family Medicine 02/03/19 documented as of this encounter
--- OUTSIDE RECORDS SUMMARY | 2024-05-19 20:27 | XMS_ITS | Encounter Summary ---
Author Organization [facility] Marly petersen [place] [id number] Care Team Providers Care Station Installation Supervisor Name Role Phone Ana Gillespie APRN Primary Care Provider [phone] Encounter Details Date Type Department Care Team (Late st Contact Info) Description 04/30/2023 3:26 PM EST Anesthesia Event [place] [phone] Leigh Carter MD [facility] DR ANESTHESIOLOGY DEPT [place] [id number] Cristine Gomez CRNA [facility] [place] [address] Anesthesia Record Procedure Summary Procedure Name Responsible [...] questions and acknowledgement of understanding Susy Juárez STOCK CONTROL SUPERVISOR 1550 Procedure Stop 1555 Break/Relief Out 1557 [...] Procedure Summary Date: 04/30/23 Room / Location: [facility] ENDO 2 / [facility] ENDOSCOPY Anesthesia Start: 1526 Anesthesia Stop: 1600 Procedure: EGD,WITH DILATION ESOPHAGUS WITH BALLOON,< 30 MM (WRVU 2.67) (Trunk) Diagnosis: Peptic stricture of esophagus (peptic striture - schedule in two weeks) Surgeons: David Dejesus MD Responsible Provider: Leigh Carter MD Anesthesia Type: general ASA Status: 3 All Anesthesia Providers: Anesthesiologist: Leigh Carter MD STOCK CONTROL SUPERVISOR: Tapan Simpson CRNA Vitals Value Taken Time BP 102/57 04/30/23 1620 Temp Pulse Resp SpO2 96 % 04/30/23 1623 Pain Level 0 04/30/23 1620 Vitals shown include unfiled device data. Patient Location: PACU/[facility] Level of [...] Cooper PA [facility] INTERVENTION[facility] RAD ??? IR G-TUBE CHECK/CHANGE 03/10/2023 IR G-Tube Check/Change 03/10/2023 Geronimo Chambers, [facility] INTERVENTION[facility] RAD ??? IR G-TUBE CHECK/CHANGE 04/06/2023 IR G-Tube Check/Change 04/06/2023 Gavin Carrillo MD [facility] INTERVENTION[facility] RAD ??? IR G-TUBE PLACEMENT 09/11/2022 IR G-Tube Placement 09/11/2022 Moustapha Hart MD [facility] INTERVENTIONL RAD ??? IR SUTURE RELEASE 09/25/2022 IR Suture Release 09/25/2022 Yoselin Ghohs PA [facility] INTERVENTIONL RAD ??? PERCUTANEOUS GASTROSTOMY N/A 09/11/2022 PERCUTANEOUS GASTROSTOMY performed by Aiden Flores MD at [facility] CATY ??? PRO COLONOSCOPY, BIOPSY N/A [...] at [facility] ENDOSCOPY ??? PRO UP GI ENDOSCOPY, BALL DIL, 30MM N/A 12/24/2022 EGD,WITH DILATION ESOPHAGUS WITH BALLOON,< 30 MM (WRVU 2.67) performed by David Dejesus MDat [facility] ENDOSCOPY ??? PRO UP GI ENDOSCOPY, BALL DIL, 30MM N/A 01/12/2023 EGD,WITH DILATION ESOPHAGUS WITH BALLOON,< 30 MM (WRVU 2.67) performed by David Dejesus [facility] ENDOSCOPY ??? PRO UP GI ENDOSCOPY, BALL DIL, 30MM N/A 02/26/2023 EGD,WITH DILATION ESOPHAGUS WITH BALLOON,< 30 MM (WRVU 2.67) performed by David Dejesus [facility] ENDOSCOPY ??? PRO UP GI ENDOSCOPY, BALL DIL, 30MM N/A 03/16/2023 EGD,WITH DILATION ESOPHAGUS WITH BALLOON,< 30 MM (WRVU 2.67) performed by David Dejesus [facility] ENDOSCOPY ??? PRO UP GI ENDOSCOPY, BALL DIL, 30MM N/A 03/30/2023 EGD,WITH DILATION ESOPHAGUS WITH BALLOON,< 30 MM (WRVU 2.67) performed by David Dejesus [facility] ENDOSCOPY ??? PRO UPPER GI ENDOSCOPY, BIOPSY N/A 04/03/2014 UPPER GASTROINTESTINAL ENDOSCOPY,WITH BIOPSY SINGLE OR MULTIPLE performed by David Dejesus [facility] ENDOSCOPY ??? PRO UPPER GI [...] [facility] Social History Tobacco Use [...] risks discussed with patient. Plan discussed with STOCK CONTROL SUPERVISOR and attending. Anesthesia Screening documented in this encounter Plan of Treatment Upcoming Encounters Date Type Department Care Team (Late st Contact Info) Description 05/26/2024 1:10 PM EST Appointment [place] [address] Gavin Carrillo MD [facility] [place] [address] 06/05/2024 1:20 PM EST Office Visit Cardiology at [address] [phone] Milagros Hernandez MD [facility] [place] [address] Scheduled Procedures Name Priority Associated [...] mg documented in this encounter Care Teams Station Installation Supervisor Relationship Specialty Start Date End Date Ana Gillespie APRN [address] [place] [address] PCP - General Family Medicine 02/03/19 documented as of this encounter
--- OUTSIDE RECORDS SUMMARY | 2024-05-19 20:27 | XMS_ITS | Encounter Summary ---
[place] [address] Care Team Providers Care Die Maker Electronic Name Role Phone Ana Gillespie VAUGHN Primary Care Provider Reason for Referral * Diagnostic Test (Routine) - Closed Specialty Diagnoses / Procedures Referred By Esperanza rodríguez Referred To Contact Radiology Diagnoses Problem with gastrostomy tube Procedures IR G-Tube Check/Change Nisha Chavez MD [facility] [place] [address] [place] [address] Referral ID Status Reason Start Date Expiration Date V isits Requested Visits Authorized [id number] Closed Specialty Service Requested 05/09/2023 11/06/2024 1 1 Reason for Visit * Diagnostic Test (Routine) - Closed Specialty Diagnoses / Procedures Referred By Esperanza rodríguez Referred To Contact Radiology Diagnoses Problem with gastrostomy tube Procedures IR G-Tube Check/Change Nisha Chavez MD [facility] [place] [address] [place] [address] Referral ID Status Reason Start Date Expiration Date V isits Requested Visits Authorized [id number] Closed Specialty Service Requested 05/09/2023 11/06/2024 1 1 Encounter Details Date Type Department Care Team (Latest Contact Info) Description 05/09/2023 11:00 AM EST - 05/09/2023 11:59 PM EST Hospital Encounter Radiology at [facility] [place] [phone] Azeem Alarcon MD [facility] [place] [address] Problem with gastrostomy tube Discharge Disposition: Home [...] meter kit. 1 each 0 12/14/2014 Insulin [place], Disposable, (BD INSULIN PEN NEEDLE UF MINI) 31 x 3/16 NeedleIndications:Di abetes mellitus type 2, uncontrolled 1 Device by [facility] [...] 05/26/2024 1:10 PM EST Appointment [place] [phone] Gavin Carrillo MD [facility] DR INTERVENTIONAL RADIOLOGY [place], [place] [address] 06/05/2024 1:20 PM EST Office Visit Cardiology at [address] [address] Milagros Hernandez MD [facility] DR CARDIOLOGY [place], [place] [phone] Scheduled Procedures Name Priority Associated Diagnoses Date/Ti [...] mLs documented in this encounter Care Teams Die Maker Electronic Relationship Specialty Start Date End Date Ana Gillespie APRN [address] [place] [address] PCP - General Family Medicine 02/03/19 documented as of this encounter
--- OUTSIDE RECORDS SUMMARY | 2024-05-19 20:27 | XMS_ITS | Encounter Summary ---
Author Organization Formerly [facility], [facility] Address [facility] [place] [address] Care Team Providers Care Cost Accounting Manager Name Role Phone Ana Gillespie VAUGHN Primary Care Provider [phone] Encounter Details Date Type Department Care Team (Late st Contact Info) Description 04/30/2023 3:00 PM EST - 04/30/2023 3:45 PM EST Surgery Gastroenterology at [facility] [place] [address] David Dejesus MD [facility] [place] [address] EGD,WITH DILATION ESOPHAGUS WITH BALLOON,< 30 MM [...] the day after the procedure, use an baoj-qgx-clusqwr spray to numb your throat. Sucking on [...] occurs, please contact your Doctor. Please call [phone] before 8pm Mon-Fri with problems, questions or concerns. If you call after 8pm or on weekends, call the Hospital at [phone] and ask to speak to the Cleaning Validation Consultant refrigeration engineering teacher and the jig box operator will contact that person for you. When should you call for help? Call [phone] anytime you think you may need emergency [...] more? Visit our health information library at [email or web address] You can also view health information on Fly me to the Moon, your personal patient account. Log in or sign uptoday. Enter J014 in the search box to learn more about Esophageal Dilation: What to Expect at Home. Current as of: December 18, 2018Content Version: 12.4 ?? 1028-4552 iContact. Care instructions adapted under license by [facility]. If you have questions about a medical condition or this instruction, always ask your healthcare professional. iContact disclaims any warranty or liability for your [...] meter kit. 1 each 0 12/14/2014 Insulin [place], Disposable, (BD INSULIN PEN NEEDLE UF [...] 05/26/2024 1:10 PM [place] [phone] Gavin Carrillo MD [facility] [place] [address] 06/05/2024 1:20 PM EST Office Visit Cardiology at [address] [phone] Milagros Hernandez MD [facility] [place] [address] Scheduled Procedures Name Priority Associated Diagnoses Date/Ti me EGD, UPPER GI ENDOSCOPY (WRV U 2.09) Peptic stricture of esophagus documented as of this encounter Procedures Procedure Name Priority Date/Time Associated Diagnosis Comments POCT GLUCOSE Routine 04/30/2023 4:13 PM EST Up Gi Endoscopy, Ball Dil, 30Mm ([id number]) 04/30/2023 3:25 PM EST Peptic stricture of esophagus UPPER GI ENDOSCOPY Routine 04/30/2023 3: 14 PM EST POCT GLUCOSE Routine 04/30/2023 2:09 PM EST documented in this encounter Results * POCT Glucose (04/30/2023 4:13 PM EST) Glucose, POC 81 65 - 199 mg/dL [facility] Comment: Supplemental ranges: <140 mg/dL before meals <180 mg/dL all other times of the day Blood 04/30/2023 4:13 PM EST 04/30/2023 4:13 PM EST David Dejesus MD POINT OF CARE TEST ORDERABLES Performing Organization Address City/State/[facility] Co de Phone Number [facility] [place] [address] * UPPER GI ENDOSCOPY (04/30/2023 3:14 PM EST) UPPER GI ENDOSCOPY [facility] Endoscopy Procedure Date: 04/30/2023 3:14 PM ? Patient Name: Jennifer Irving ? N: [id number] ? Date of : 1960 ? Age: 62 ? Order #: [id number] ? Instrument Name: [id number] ? Procedure: ? Upper GI endoscopy Indications: [...] PROVATION 04/30/2023 3:14 PM EST Ana Gillespie WASTE BALER GENERAL SURGICAL ORD ERABLES PROVATION * POCT Glucose (04/30/2023 2:09 PM EST) Glucose, POC 75 65 - 199 mg/dL [facility] Comment: Supplemental ranges: <140 mg/dL before meals <180 mg/dL all other times of the day Blood 04/30/2023 2:09 PM EST 04/30/2023 2:09 PM EST David Dejesus MD POINT OF CARE TEST ORDERABLES [facility] [place] [address] documented in this encounter Visit Diagnoses Diagnosis [...] RN) documented in this encounter Care Teams Cost Accounting Manager Relationship Specialty Start Date End Date Ana Gillespie APRN [address] [place] [address] PCP - General Family Medicine 02/03/19 documented as of this encounter
--- OUTSIDE RECORDS SUMMARY | 2024-05-19 20:27 | XMS_ITS | Encounter Summary ---
Author Organization [facility] [place] [place] [address] Care Team Providers Care Keno Attendant Name Role Phone Ana Gillespie VAUGHN Primary Care Provider Encounter Details Date Type Department Care Team (Late st Contact Info) Description 05/18/2023 Telephone [place] [phone] Chiquita James, RN Social History Tobacco Use [...] PM [place] [phone] Gavin aCrrillo MD [facility] [place] [address] 06/05/2024 1:20 PM EST Office Visit Cardiology at [address] [address] Milagros Hernandez MD [facility] [place] [address] Scheduled Procedures Name Priority Associated Diagnoses Date/Ti me EGD, UPPER GI ENDOSCOPY (WRV U 2.09) Peptic stricture of esophagus documented as of this encounter Visit Diagnoses Not on filedocumented in this encounter Care Teams Keno Attendant Relationship Specialty Start Date End Date Ana Gillespie APRN [address] [place] [address] PCP - General Family Medicine 02/03/19 documented as of this encounter
--- OUTSIDE RECORDS SUMMARY | 2024-05-19 20:27 | XMS_ITS | Encounter Summary ---
Author Organization [facility] Address [facility] Marly petersen [place] [id number] Care Team Providers Care Academic Manager Name Role Phone Ana Gillespie APRN Primary Care Provider [phone] Encounter Details Date Type Department Care Team [...] 05/26/2024 1:10 PM EST Appointment Radiology at [place] [phone] Gavin Carrillo MD [facility] [address] 06/05/2024 1:20 PM EST Office Visit Cardiology at [address] [address] Milagros Hernandez MD [facility] [place] [address] Scheduled Procedures Name Priority Associated Diagnoses Date/Ti me EGD, UPPER GI ENDOSCOPY (WRV U 2.09) Peptic stricture of esophagus documented as of this encounter Visit Diagnoses Not on filedocumented in this encounter Care Teams Academic Manager Relationship Specialty Start Date End Date Ana Gillespie APRN [address] [place] [address] PCP - General Family Medicine 02/03/19 documented as of this encounter
--- OUTSIDE RECORDS SUMMARY | 2024-05-19 20:28 | XMS_ITS | Encounter Summary ---
Author Organization [facility] Address [facility] [place] [address] Care Team Providers Care Ship Laborer Name Role Phone Ana Gillespie VAUGHN Primary Care Provider [phone] Encounter Details Date Type Department Care Team (Latest Contact Info) Description 03/16/2023 11:29 AM EST - 03/16/2023 2:40 PM EST Hospital Encounter Gastroenterology at [facility] [place] [address] David Dejesus MD [facility] [place] [address] Discharge Disposition: Home Social History Tobacco Use [...] the day after the procedure, use an vffx-oko-hgwdboz spray to numb your throat. Sucking on [...] occurs, please contact your Doctor. Please call [phone] before 8pm Mon-Fri with problems, questions or concerns. If you call after 8pm or on weekends, call the Hospital at [phone] and ask to speak to the Ripening Room Hand director of institutional research and the service rig operator will contact that person for you. [...] more? Visit our health information library at [email or web address] You can also view health information on LookFlow, your personal patient account. Log in or sign uptoday. Enter J014 in the search box to learn more about Esophageal Dilation: What to Expect at Home. Current as of: December 18, 2018Content Version: 12.4 ?? 2453-3414 Conductrics. Care instructions adapted under license by [facility]. If you have questions about a medical condition or this instruction, always ask your healthcare professional. Conductrics disclaims any warranty or liability for your [...] meter kit. 1 each 0 12/14/2014 Insulin [place], Disposable, (BD INSULIN PEN NEEDLE UF MINI) [...] 05/26/2024 1:10 PM EST [place] [phone] Gavin Carrillo MD [facility] [place] [address] 06/05/2024 1:20 PM EST Office Visit Cardiology at [address] [phone] Milagros Hernandez MD [facility] [place] [address] Scheduled Procedures Name Priority Associated Diagnoses Date/Ti me EGD, UPPER GI ENDOSCOPY (WRV U 2.09) Peptic stricture of esophagus documented as of this encounter Procedures Procedure Name Priority Date/Time Associated Diagnosis Comments Up Gi Endoscopy, Ball Dil, 30Mm ([id number]) 03/16/2023 1:03 PM EST Peptic stricture of esophagus UPPER GI ENDOSCOPY Routine 03/16/2023 12 :23 PM EST POCT GLUCOSE Routine 03/16/2023 12:05 PM EST documented in this encounter Results * UPPER GI ENDOSCOPY (03/16/2023 12:23 PM EST) [facility] UPPER GI ENDOSCOPY [facility] Endoscopy Procedure Date: 03/16/2023 12:23 PM ? Patient Name: Jennifer Irving ? N: [id number] ? Date of : 1960 ? Age: 62 ? Order #: [id number] ? Instrument Name: [id number]- [id number] ? Procedure: ? Upper GI endoscopy Providers: [...] 03/16/2023 12:2 3 PM EST Ana Gillespie WEATHERIZATION CREW LEADER GENERAL SURGICAL ORD ERABLES PROVATION * POCT Glucose (03/16/2023 12:05 PM EST) Glucose, POC 104 65 - 199 mg/dL [facility] Comment: Supplemental ranges: <140 mg/dL before meals <180 mg/dL all other times of the day Blood 03/16/2023 12:0 5 PM EST 03/16/2023 12:05 PM EST David Dejesus MD POINT [place] [address] documented in this encounter Visit Diagnoses Not [...] RN) documented in this encounter Care Teams Ship Laborer Relationship Specialty Start Date End Date Ana Gillespie APRN [address] [place] [address] PCP - General Family Medicine 02/03/19 documented as of this encounter
--- OUTSIDE RECORDS SUMMARY | 2024-05-19 20:28 | XMS_ITS | Encounter Summary ---
Author Organization [facility] [place] [address] Care Team Providers Care Newspaper Library Manager Name Role Phone Ana Gillespie APRN Primary Care Provider Encounter Details Date Type Department Care Team (Late st Contact Info) Description 03/16/2023 Orders [place] [address] David Dejesus MD [facility] [place] [address] Peptic stricture of esophagus Social History Tobacco [...] 05/26/2024 1:10 PM EST [place] [address] Gavin Carrillo MD [facility] [place] [address] 06/05/2024 1:20 PM EST Office Visit Cardiology at [address] [phone] Milagros Hernandez MD [facility] [address] Scheduled Orders Name Type Priority Associated Diagnoses [...] esophagus documented in this encounter Care Teams Newspaper Library Manager Relationship Specialty Start Date End Date Ana Gillespie APRN [address] [place] [address] PCP - General Family Medicine 02/03/19 documented as of this encounter
--- OUTSIDE RECORDS SUMMARY | 2024-05-19 20:28 | XMS_ITS | Encounter Summary ---
Author Organization [facility] [place] [address] Care Team Providers Care Oem Sales Manager Name Role Phone Ana Gillespie SCREENER OPERATOR Primary Care Provider [phone] Encounter Details Date Type Department Care Team (Late st Contact Info) Description 03/01/2023 Telephone [facility] [place] [address] Parris Maravilla Social History Tobacco Use Types [...] - 03/01/2023 4:20 PM EDT Jennifer Irving [id number] Diagnosis/Indication: stricture dilation Please review patient chart [...] your procedure. Who will likely be your class c truck driver for the procedure? *Please Verify [...] 1:10 PM EST App[place] [address] Gavin Carrillo MD [facility] DR INTERVENT[place] [address] 06/05/2024 1:20 PM EST Office Visit Cardiology at [address] [phone] Milagros Hernandez MD [facility] [place] [address] Scheduled Procedures Name Priority Associated Diagnoses Date/Ti me EGD, UPPER GI ENDOSCOPY (WRV U 2.09) Peptic stricture of esophagus documented as of this encounter Visit Diagnoses Not on filedocumented in this encounter Care Teams Oem Sales Manager Relationship Specialty Start Date End Date Ana Gillespie APRN [address] [place] [address] PCP - General Family Medicine 02/03/19 documented as of this encounter
--- OUTSIDE RECORDS SUMMARY | 2024-05-19 20:28 | XMS_ITS | Encounter Summary ---
Author Organization [facility] Address [facility] [place] [address] Care Team Providers Care Proposal Rep Name Role Phone Ana Gillespie VAUGHN Primary Care Provider Encounter Details Date Type Department Care Team (Latest Contact Info) Description 01/12/2023 6:17 AM EDT - 01/12/2023 10:54 AM EDT Hospital Encounter [place] [address] David Dejesus MD [facility] [place] [address] Discharge Disposition: Home Social History Tobacco Use [...] the day after the procedure, use an orcx-slm-wmzcwvn spray to numb your throat. Sucking on [...] occurs, please contact your Doctor. Please call [phone] before 8pm Mon-Fri with problems, questions or concerns. If you call after 8pm or on weekends, call the Hospital at [phone] and ask to speak to the Curb Supervisor occupational health nurse supervisor and the pickling tank operator will contact that person for [...] any problems. Where can you learn more? [facility] View your After Visit Summary and [...] cost to you. Content Version: 12.2 ?? 6812-6315 D[employer]. Care instructions adapted under license by [facility]. If you have questions about a medical condition or this instruction, always ask your healthcare professional. D[employer], [employer] disclaims any warranty or liability for [...] meter kit. 1 each 0 12/14/2014 Insulin [place], Disposable, (BD INSULIN PEN NEEDLE UF MINI) [...] 05/26/2024 1:10 PM EST [place] [address] Gavin Carrillo MD [facility] INTER[place] [address] 06/05/2024 1:20 PM EST Office Visit Cardiology at [address] [phone] Milagros Hernandez MD [facility] [place] [address] Scheduled Procedures Name Priority Associated Diagnoses Date/Ti me EGD, UPPER GI ENDOSCOPY (WRV U 2.09) Peptic stricture of esophagus documented as of this encounter Procedures Procedure Name Priority Date/Time Associated Diagnosis Comments Up Gi Endoscopy, Rick Chavez, 30Mm ([id number]) 01/12/2023 8:06 AM EDT Peptic stricture of esophagus POCT GLUCOSE Routine 01/12/2023 7:31 AM EDT documented in this encounter Results * POCT Glucose (01/12/2023 7:31 AM EDT) Glucose, POC 115 65 - 199 mg/dL [facility] Comment: Supplemental ranges: <140 mg/dL before meals <180 mg/dL all other times of the day Blood 01/12/2023 7:31 AM EDT 01/12/2023 7:31 AM EDT David Dejesus MD POINT OF CARE TEST ORDERABLES Performing Organization Address City/State/[facility] Co de Phone Number [facility] [place] [place] [address] documented in this encounter Visit Diagnoses Not [...] CRNA) documented in this encounter Care Teams Proposal Rep Relationship Specialty Start Date End Date Ana Gillespie APRN [address] [place] [address] PCP - General Family Medicine 02/03/19 documented as of this encounter
--- OUTSIDE RECORDS SUMMARY | 2024-05-19 20:28 | XMS_ITS | Encounter Summary ---
Author Organization [facility]ly [facility] [place] [address] Care Team Providers Care Plodder Operator Name Role Phone Ana Gillespie IMAGING MANAGER Primary Care Provider [phone] Encounter Details Date Type Department Care Team (Late st Contact Info) Description 12/25/2022 Telephone [place] [phone] Parris Maravilla Social History Tobacco Use Types [...] 05/26/2024 1:10 PM EST Appoint[place] [phone] Gavin Carrillo MD [facility] [address] [place] [address] 06/05/2024 1:20 PM EST Office Visit Cardiology at [address] [address] Milagros Hernandez MD [facility] [place] [place] [address] Scheduled Procedures Name Priority Associated Diagnoses Date/Ti me EGD, UPPER GI ENDOSCOPY (WRV U 2.09) Peptic stricture of esophagus documented as of this encounter Visit Diagnoses Not on filedocumented in this encounter Care Teams Plodder Operator Relationship Specialty Start Date End Date Ana Gillespie APRN [address] [place] [address] PCP - General Family Medicine 02/03/19 documented as of this encounter
--- OUTSIDE RECORDS SUMMARY | 2024-05-19 20:28 | XMS_ITS | Encounter Summary ---
Author Organization [facility] Address [facility] [place] [address] Care Team Providers Care Emergency Veterinary Technician Name Role Phone Ana Gillespie VAUGHN Primary Care Provider [phone] Encounter Details Date Type Department Care Team (Latest Contact Info) Description 12/24/2022 9:38 AM EDT - 12/24/2022 1:43 PM EDT Hospital En[place] [phone] David Dejesus MD [facility] [place] [address] Discharge Disposition: Home Social History Tobacco Use [...] 180 tablet 3 10/20/2021 Blood Sugar Diagnostic ([email or web address] ULTRA TEST) StripIndications:Typ e 2 diabetes mellitus, [...] meter kit. 1 each 0 12/14/2014 Insulin [place], Disposable, (BD INSULIN PEN NEEDLE UF MINI) 31 x 07/23 NeedleIndications:Di abetes mellitus type 2, uncontrolled 1 Device by [facility]Non-Drug; Combo Route) route 3 times daily as [...] glucose meter kit. 1 each 0 Insulin [place], Disposable, (BD INSULIN PEN NEEDLE UF MINI) 31 x 3/16 Needle 1 Device by Mis.(Non-Drug; Combo Route) route 3 times daily as needed. 100 each 11 PHYSICAL EXAM: Blood pressure 110/57, pulse 62, temperature 36.2 ??C (97.2 ??F), temperature source Tympanic, NwV716 %. GEN: Alert, cooperative. Pleasant. In NAD [...] 05/26/2024 1:10 PM [place] [address] [facility] [place] [address] 06/05/2024 1:20 PM EST Office Visit Cardiology at [address] [address] [facility] [place] [address] Scheduled Procedures Name Priority Associated Diagnoses Date/Ti me EGD, UPPER GI ENDOSCOPY (WRV U 2.09) Peptic stricture of esophagus documented as of this encounter Procedures Procedure Name Priority Date/Time Associated Diagnosis Comments Up Gi Endoscopy, Ball Dil, 30Mm ([id number]) 12/24/2022 11:56 AM EDT Farrell's esophagus without dysplasia UPPER GI ENDOSCOPY Routine 12/24/2022 11 :46 AM EDT POCT GLUCOSE Routine 12/24/2022 11:02 AM EDT documented in this encounter Results * UPPER GI ENDOSCOPY (12/24/2022 11:46 AM EDT) UPPER GI ENDOSCOPY [facility] Endoscopy Procedure Date: 12/24/2022 11:46 AM ? Patient Name: Jennifer Irving ? Date of : 1960 ? Age: 62 ? Order #: [id number] ? Instrument Name: [id number]- [id number] ? Procedure: ? Upper GI endoscopy Indications: [...] GENERAL SURGICAL ORD ERABLES Performing Organization Address City/[facility] Co de Phone Number PROVATION * POCT Glucose (12/24/2022 11:02 AM EDT) Glucose, POC 123 65 - 199 mg/dL [facility] Comment: Supplemental ranges: <140 mg/dL before meals <180 mg/dL all other times of the day Blood 12/24/2022 11:0 2 AM EDT 12/24/2022 11:02 AM EDT David Dejesus MD POINT OF CARE TEST ORDERABLES Performing Organization Address [facility] Co de Phone Number [facility] [place] [address] documented in this encounter Visit Diagnoses Not [...] documented in this encounter Care Teams Emergency Veterinary Technician Relationship Specialty Start Date End Date Ana Gillespie APRN [address] [place] [address] PCP - General Family Medicine 02/03/19 documented as of this encounter
--- OUTSIDE RECORDS SUMMARY | 2024-05-19 20:28 | XMS_ITS | Encounter Summary ---
Author Organization [facility] [place] [address] Care Team Providers Care Contract Administrative Assistant Name Role Phone Ana Gillespie VAUGHN Primary Care Provider [phone] Encounter Details Date Type Department Care Team (Late st Contact Info) Description 03/01/2023 Telephone [place] [phone] Jessica Beckman Social History Tobacco Use Types [...] Campos rtnd call. Msg sent to Urgent Soccer Coach to call him back to sched pt. documented in this encounter Plan of Treatment Upcoming Encounters Date Type Department Care Team (Late st Contact Info) Description 05/26/2024 1:10 PM EST Appointment [place] [address] Gavin Carrillo MD [facility] [place] [address] 06/05/2024 1:20 PM EST Office Visit Cardiology at [address] [address] Milagros Hernandez MD [facility] [place] [address] Scheduled Procedures Name Priority Associated Diagnoses Date/Ti me EGD, UPPER GI ENDOSCOPY (WRV U 2.09) Peptic stricture of esophagus documented as of this encounter Visit Diagnoses Not on filedocumented in this encounter Care Teams Contract Administrative Assistant Relationship Specialty Start Date End Date Ana Gillespie APRN [address] [place] [address] PCP - General Family Medicine 02/03/19 documented as of this encounter
--- OUTSIDE RECORDS SUMMARY | 2024-05-19 20:28 | XMS_ITS | Encounter Summary ---
Author Organization [facility] Address [facility] [place] [address] Care Team Providers Care Senior Climate Advisor Name Role Phone Ana Gillespie VAUGHN Primary Care Provider [phone] Encounter Details Date Type Department Care Team (Late st Contact Info) Description 03/16/2023 1:00 PM EST - 03/16/2023 1:30 PM EST Surgery Gastroenterology at [facility] [place] [address] David Dejesus MD [facility] [place] [address] EGD,WITH DILATION ESOPHAGUS WITH BALLOON,< 30 MM [...] the day after the procedure, use an qhlu-wbn-kzsbmqe spray to numb your throat. Sucking on [...] occurs, please contact your Doctor. Please call [phone] before 8pm Mon-Fri with problems, questions or concerns. If you call after 8pm or on weekends, call the Hospital at [phone] and ask to speak to the Naval Gunfire Spotter motion picture projectionist apprentice and the retort operator will contact that person for you. [...] more? Visit our health information library at [email or web address] You can also view health information on Pensqr, your personal patient account. Log in or sign uptoday. Enter J014 in the search box to learn more about Esophageal Dilation: What to Expect at Home. Current as of: December 18, 2018Content Version: 12.4 ?? [id number] FlightCaster. Care instructions adapted under license by [facility]. If you have questions about a medical condition or this instruction, always ask your healthcare professional. [employer] disclaims any warranty or liability for your [...] meter kit. 1 each 0 12/14/2014 Insulin [place], Disposable, (BD INSULIN PEN NEEDLE UF MINI) [...] 05/26/2024 1:10 PM EST [place] [phone] Gavin Carrillo MD [facility] [place] [address] 06/05/2024 1:20 PM EST Office Visit Cardiology at [address] [phone] Milagros Hernandez MD [facility] [place] [address] Scheduled Procedures Name Priority Associated Diagnoses Date/Ti me EGD, UPPER GI ENDOSCOPY (WRV U 2.09) Peptic stricture of esophagus documented as of this encounter Procedures Procedure Name Priority Date/Time Associated Diagnosis Comments Up Gi Endoscopy, Ball Dil, 30Mm (78116) 03/16/2023 1:03 PM EST Peptic stricture of esophagus UPPER GI ENDOSCOPY Routine 03/16/2023 12 :23 PM EST POCT GLUCOSE Routine 03/16/2023 12:05 PM EST documented in this encounter Results * UPPER GI ENDOSCOPY (03/16/2023 12:23 PM EST) [facility] UPPER GI ENDOSCOPY [facility] Endoscopy Procedure Date: 03/16/2023 12:23 PM ? Patient Name: Jennifer Irving ? N: [id number] ? Date of : 1960 ? Age: 62 ? Order #: [id number] ? Instrument Name: [id number] ? Procedure: ? Upper GI endoscopy Providers: [...] entire procedure. ? ___ David eDjesus MD 03/16/2023 1:29:05 PM This report has been signed electronically. Number of Addenda: 0 Note Initiated On: 03/16/2023 12:23 PM PROVATION 03/16/2023 12:2 3 PM EST Ana Gillespie [facility] ORD ERABLES PROVATION * POCT Glucose (03/16/2023 12:05 PM EST) Glucose, POC 104 65 - 199 mg/dL [facility] Comment: Supplemental ranges: <140 mg/dL before meals <180 mg/dL all other times of the day Blood 03/16/2023 12:0 5 PM EST 03/16/2023 12:05 PM EST David Dejesus MD POINT [place] [address] documented in this encounter Visit Diagnoses Diagnosis [...] documented in this encounter Care Teams Senior Climate Advisor Relationship Specialty Start Date End Date Ana Gillespie APRN [address] [place] [address] PCP - General Family Medicine 02/03/19 documented as of this encounter
--- OUTSIDE RECORDS SUMMARY | 2024-05-19 20:28 | XMS_ITS | Encounter Summary ---
Author Organization [facility] Address [facility] [place] [address] Care Team Providers Care Commercial Construction Estimator Name Role Phone Ana Gillespie APRN Primary Care Provider [phone] Reason for Visit * Consultation (Urgent) - Closed Specialty Diagnoses / Procedures Referred By Esperanza t Referred To Contact Cardiology Diagnoses Cardiac LV ejection fraction 30-35% Ana Gillespie APRN [address] [place] [address] [facility] [address] [place] [phone] Referral ID Status Reason Start Date Expiration Date V isits Requested Visits Authorized [id number] Closed Consult, Test & Treat PCP Updated and/or Approved 11/23/2022 11/23/2023 12 12 Encounter Details Date Type Department Care Team (Latest Contact Info) Description 01/15/2023 11:20 AM EDT Office Visit Cardiology at [address] [phone] Milagros Hernandez MD [facility] [place] [address] Stress-induced cardiomyopathy (Primary Dx); HFrEF (heart failure [...] from the original note were not included. [facility] [place] [address] CARDIOLOGY OUTPATIENT NOTE PRIMARY CARE PROVIDER: Ana [...] glucose meter kit. 1 each 0 Insulin [place], Disposable, (BD INSULIN PEN NEEDLE UF MINI) 31 x 3/16 Needle 1 Device by [facility] [...] putting in new L hip replacement at [facility] next week due to inadequate healing [...] 450 QTC Calculated (Bezet) 426 Calculated P [place] 55 Calculated R [place] 56 Calculated T [place] 49 INTERPRETATION Sinus bradycardia Low voltage QRS [...] Sinus bradycardia, low voltage, otherwise normal TTE ([facility], 11/20/22): TTE (08/19/22): Interpretation Summary [...] personal interpretation of testing results, medication reconciliation, ucxs-so-igxw interview, examination and counseling of the patient, coordination of care and documentation of the above. Thank you for the opportunity to participate in this patient's cardiovascular care. All questions were answered and I look forward to the next visit. Milagros Hernandez MD Cardiovascular Medicine [facility] 01/15/2023 documented in this encounter Plan of Treatment Upcoming Encounters Date Type Department Care Team (Late st Contact Info) Description 05/26/2024 1:10 PM EST [place] [address] Gavin Carrillo MD [facility] [place] [address] 06/05/2024 1:20 PM EST Office Visit Cardiology at [address] [phone] Milagros Hernandez MD [facility] [place] [address] Scheduled Procedures Name Priority Associated Diagnoses Date/Ti [...] (Bezet) 426 ms MUSE SYSTEM Calculated P [place] 55 degrees MUSE SYSTEM Calculated R [place] 56 degrees MUSE SYSTEM Calculated T [place] 49 degrees MUSE SYSTEM INTERPRETATION Sinus bradycardia [...] fraction) documented in this encounter Care Teams Commercial Construction Estimator Relationship Specialty Start Date End Date Ana Gillespie APRN [address] [place] [address] PCP - General Family Medicine 02/03/19 documented as of this encounter
--- OUTSIDE RECORDS SUMMARY | 2024-05-19 20:28 | XMS_ITS | Encounter Summary ---
Author Organization [facility] [address] Care Team Providers Care Fiscal Officer Name Role Phone Ana Gillespie VAUGHN Primary Care Provider [phone] Encounter Details Date Type Department Care Team (Late st Contact Info) Description 12/21/2022 Telephone [place] [phone] Jessica Beckman Social History Tobacco Use Types [...] 12/24 at 11:30am per Dr Dejesus-had to [facility] documented in this encounter Plan of Treatment Upcoming Encounters Date Type Department Care Team (Late st Contact Info) Description 05/26/2024 1:10 PM EST [place] [phone] Gavin Carrillo MD [facility] INTER[place]ION[place] [address] 06/05/2024 1:20 PM EST Office Visit Cardiology at [address] [address] Milagros Hernandez MD [facility] [place] [address] Scheduled Procedures Name Priority Associated Diagnoses Date/Ti me EGD, UPPER GI ENDOSCOPY (WRV U 2.09) Peptic stricture of esophagus documented as of this encounter Visit Diagnoses Not on filedocumented in this encounter Care Teams Fiscal Officer Relationship Specialty Start Date End Date Ana Gillespie APRN [address] [place] [address] PCP - General Family Medicine 02/03/19 documented as of this encounter
--- OUTSIDE RECORDS SUMMARY | 2024-05-19 20:28 | XMS_ITS | Encounter Summary ---
Author Organization [facility] Address [facility] [place] [address] Care Team Providers Care Lab Rn Name Role Phone Ana Gillespie APRN Primary Care Provider Encounter Details Date Type Department Care Team (Latest Contact Info) Description 02/26/2023 12:03 PM EDT - 02/26/2023 3:41 PM EDT Hospital Encounter [place] [phone] David Dejesus MD [facility] [place] [address] Discharge Disposition: Home Social History Tobacco Use [...] the day after the procedure, use an rxmb-prr-xhbcpwd spray to numb your throat. Sucking on [...] occurs, please contact your Doctor. Please call [phone] before 8pm Mon-Fri with problems, questions or concerns. If you call after 8pm or on weekends, call the Hospital at [phone] and ask to speak to the Outboard Motorboat Operator ammonia nitrate operator and the processing operator will contact that [...] Where can you learn more? [facility] View your After Visit Summary and more online at [email or web address] If you would like to [...] cost to you. Content Version: 12.2 ?? [id number] Triblio. Care instructions adapted under license by [facility]. If you have questions about a medical condition or this instruction, always ask your healthcare professional. Triblio disclaims any warranty or liability for your [...] strips. 300 each 3 12/14/2014 Blood-Glucose Meter (BoqiiTOUCH ULTRA2) KitIndications:Type 2 diabetes mellitus, uncontrolled by Other route. 1 = one blood glucose meter kit. 1 each 0 12/14/2014 Insulin [place], Disposable, (BD INSULIN PEN NEEDLE UF MINI) [...] glucose meter kit. 1 each 0 Insulin [place], Disposable, (BD INSULIN PEN NEEDLE UF MINI) [...] - 199 mg/dL ASSESSMENT AND PLAN Jennifer Liuson is a 62 y.o. y/o who presents for endoscopic evaluation. Risks extensively discussed including bleeding, infection, reaction to anesthesia, perforation, and/or other unforseen complication. Consent signed and patient well informed of the risks of the procedure. documented in this encounter Plan of Treatment Upcoming Encounters Date Type Department Care Team (Late st Contact Info) Description 05/26/2024 1:10 PM EST [place] [address] Gavin Carrillo MD [facility] [place] [address] 06/05/2024 1:20 PM EST Office Visit Cardiology at [address] [phone] Milagros Hernandez MD [facility] [place] [address] Scheduled Procedures Name Priority Associated Diagnoses Date/Ti me EGD, UPPER GI ENDOSCOPY (WRV U 2.09) Peptic stricture of esophagus documented as of this encounter Procedures Procedure Name Priority Date/Time Associated Diagnosis Comments Up Gi Endoscopy, Ball Dil, 30Mm ([id number]) 02/26/2023 2:09 PM EDT Peptic stricture of esophagus POCT GLUCOSE Routine 02/26/2023 1:28 PM EDT documented in this encounter Results * POCT Glucose (02/26/2023 1:28 PM EDT) Glucose, POC 71 65 - 199 mg/dL [facility] Comment: Supplemental ranges: <140 mg/dL before meals <180 mg/dL all other times of the day Blood 02/26/2023 1:28 PM EDT 02/26/2023 1:28 PM EDT David Dejesus MD POINT OF CARE TEST ORDERABLES [facility] [address] documented in this encounter Visit Diagnoses Not [...] RN) documented in this encounter Care Teams Lab Rn Relationship Specialty Start Date End Date Ana Gillespie APRN [address] [place] [address] PCP - General Family Medicine 02/03/19 documented as of this encounter
--- OUTSIDE RECORDS SUMMARY | 2024-05-19 20:28 | XMS_ITS | Encounter Summary ---
Author Organization [facility] Address [facility] [place] [address] Care Team Providers Care Decorating Instructor Name Role Phone Ana Gillespie VAUGHN Primary Care Provider [phone] Encounter Details Date Type Department Care Team (Late st Contact Info) Description 01/12/2023 7:30 AM EDT - 01/12/2023 8:00 AM EDT Surgery [place] [phone] David Dejesus MD [facility] [place] [address] EGD,WITH DILATION ESOPHAGUS WITH BALLOON,< 30 MM [...] the day after the procedure, use an pekc-qmt-mnqsafv spray to numb your throat. Sucking on [...] occurs, please contact your Doctor. Please call [phone] before 8pm Mon-Fri with problems, questions or concerns. If you call after 8pm or on weekends, call the Hospital at [phone] and ask to speak to the Carcass Trimmer destination specialist and the gas substation operator will contact that person for you. [...] any problems. Where can you learn more? [facility] View your After Visit Summary and more online at [email or web address] If you would like to provide feedback about your hospital experience, please call the Office of Patient and Family Relations at . If you have received this After Visit Summary in error, please immediately return it in person to the department, or notify the [facility] Privacy Office by calling toll free at between the hours of 8AM and 5PM to arrange for our retrieval of the documents at no cost to you. Content Version: 12.2 ?? [phone] [employer]. Care instructions adapted under license by [facility]. If you have questions about a medical condition or this instruction, always ask your healthcare professional. [employer], [employer] disclaims any warranty or liability for [...] meter kit. 1 each 0 12/14/2014 Insulin [place], Disposable, (BD INSULIN PEN NEEDLE UF MINI) [...] 1:10 PM EST Appointment [place] [phone] Gavin Carrillo MD [facility] [place] [address] 06/05/2024 1:20 PM EST Office Visit Cardiology at [address] [phone] Milagros Hernandez MD [facility] [place] [address] Scheduled Procedures Name Priority Associated Diagnoses Date/Ti dc EGD, UPPER GI ENDOSCOPY (WRV U 2.09) Peptic stricture of esophagus documented as of this encounter Procedures Procedure Name Priority Date/Time Associated Diagnosis Comments Up Gi Endoscopy, Rick Chavez, 30Mm (06015) 01/12/2023 8:06 AM EDT Peptic stricture of esophagus POCT GLUCOSE Routine 01/12/2023 7:31 AM EDT documented in this encounter Results * POCT Glucose (01/12/2023 7:31 AM EDT) Glucose, POC 115 65 - 199 mg/dL [facility] Comment: Supplemental ranges: <140 mg/dL before meals <180 mg/dL all other times of the day Blood 01/12/2023 7:31 AM EDT 01/12/2023 7:31 AM EDT David Dejesus MD POINT OF CARE TEST ORDERABLES Performing Organization Address City/State/[facility] Co de Phone Number [facility] [address] documented in this encounter Visit Diagnoses Diagnosis [...] Chiquis Burnham CRNA - Comment: Switch to gravity)0887 (Restarted - Provider: Chiquis Burnham CRNA) documented in this encounter Care Teams Decorating Instructor Relationship Specialty Start Date End Date Ana Gillespie APRN [address] [place] [address] PCP - General Family Medicine 02/03/19 documented as of this encounter
--- OUTSIDE RECORDS SUMMARY | 2024-05-19 20:28 | XMS_ITS | Encounter Summary ---
Author Organization [facility] Address [facility] [place] [address] Care Team Providers Care Vineyardist Name Role Phone Ana Gillespie APRN Primary Care Provider [phone] Encounter Details Date Type Department Care Team (Late st Contact Info) Description 02/26/2023 2:07 PM EDT Anesthesia Event [place] [phone] Rio Aceves MD [facility] DR [place] [address] Adrianna Barron MD [facility] DR [place] [address] Anesthesia Record Procedure Summary Procedure Name Responsible [...] Procedure Summary Date: 02/26/23 Room / Location: [facility] 2 / [facility] Anesthesia Start: 1407 Anesthesia Stop: 1439 Procedure: EGD,WITH DILATION ESOPHAGUS WITH BALLOON,< 30 MM (WRVU 2.67) (Trunk) Diagnosis: Peptic stricture of esophagus (peptic stricture dilation - within two weeks) Surgeons: David Dejesus MD Responsible Provider: Rio Aceves MD Anesthesia Type: MAC ASA Status: 3 All Anesthesia Providers: Anesthesiologist: Rio Aceves MD PARK MAINTAINER: Tapan Simpson CRNA Vitals Value Taken Time BP 115/50 02/26/23 1503 Temp Pulse Resp 16 02/26/23 1435 SpO2 95 % 02/26/23 1505 Pain Level 0 02/26/23 1435 Vitals shown include unfiled device data. Patient Location: PACU/[facility] Level of Consciousness: Awake and Alert [...] (WRVU 2.67) performed by David Dejesus MDat [facility] ??? PRO UP GI [...] with patient and spouse. Plan discussed with PARK MAINTAINER and attending. Anesthesia Screening documented in this encounter Plan of Treatment Upcoming Encounters Date Type Department Care Team (Late st Contact Info) Description 05/26/2024 1:10 PM EST Appointment [place] [address] Gavin Carrillo MD [facility] INTERVENT[place] [address] 06/05/2024 1:20 PM EST Office Visit Cardiology at [address] [phone] Milagros Hernandez MD [facility] [place] [address] Scheduled Procedures Name Priority Associated Diagnoses Date/Ti [...] hr documented in this encounter Care Teams Vineyardist Relationship Specialty Start Date End Date Ana Gillespie APRN [address] [place] [address] PCP - General Family Medicine 02/03/19 documented as of this encounter
--- OUTSIDE RECORDS SUMMARY | 2024-05-19 20:28 | XMS_ITS | Encounter Summary ---
Author Organization [facility] [place] [address] Care Team Providers Care Jacquard Loom Card Changer Name Role Phone Ana Gillespie APRN Primary Care Provider [phone] Reason for Visit * Reason Onset Date Comments Questions 03/02/2023 Med changes at [facility] visit Encounter Details Date Type Department Care Team (Late st Contact Info) Description 03/02/2023 Telephone Cardiology at [address] [phone] Chela Walsh RN Questions (Med changes at [...] the hospital over the past weekend at [facility] for pneumonia. While there they restarted the [...] 05/26/2024 1:10 PM EST [place] [phone] Gavin Carrillo MD [facility] [place] [address] 06/05/2024 1:20 PM EST Office Visit Cardiology at [address] [phone] Milagros Hernandez MD [facility] [place] [address] Scheduled Procedures Name Priority Associated Diagnoses Date/Ti me EGD, UPPER GI ENDOSCOPY (WRV U 2.09) Peptic stricture of esophagus documented as of this encounter Visit Diagnoses Not on filedocumented in this encounter Care Teams Jacquard Loom Card Changer Relationship Specialty Start Date End Date Ana Gillespie APRN [address] [place] [address] PCP - General Family Medicine 02/03/19 documented as of this encounter
--- OUTSIDE RECORDS SUMMARY | 2024-05-19 20:28 | XMS_ITS | Encounter Summary ---
Author Organization [facility] Address [facility] [place] [address] Care Team Providers Care It Support Specialist Name Role Phone Ana Gillespie APRN Primary Care Provider [phone] Encounter Details Date Type Department Care Team (Late st Contact Info) Description 03/09/2023 Notes [place] [phone] Masha Adkins MD [facility] [place] [place] [address] Social History Tobacco Use Types Packs/Day Years [...] agreement with plan. Masha (Christos) Lucille MARTE Marketing Admin PGY4 documented in this encounter Plan of Treatment Upcoming Encounters Date Type Department Care Team (Late st Contact Info) Description 05/26/2024 1:10 PM EST Appointment [place] [address] Gavin Carrillo MD [facility] [place] [address] 06/05/2024 1:20 PM EST Office Visit Cardiology at [address] [phone] Milagros Hernandez MD [facility] [place] [address] Scheduled Orders Name Type Priority Associated Diagnoses [...] esophagus documented in this encounter Care Teams It Support Specialist Relationship Specialty Start Date End Date Ana Gillespie APRN [address] [place] [address] PCP - General Family Medicine 02/03/19 documented as of this encounter
--- OUTSIDE RECORDS SUMMARY | 2024-05-19 20:28 | XMS_ITS | Encounter Summary ---
Author Organization [facility] Address [facility] [place] [address] Care Team Providers Care Dough Puncher Name Role Phone Ana Gillespie APRN Primary Care Provider [phone] Encounter Details Date Type Department Care Team (Late st Contact Info) Description 02/26/2023 2:00 PM EDT - 02/26/2023 2:30 PM EDT [place] [phone] David Dejesus MD [facility] [place] [address] EGD,WITH DILATION ESOPHAGUS WITH BALLOON,< 30 MM [...] the day after the procedure, use an gfdj-crb-fqzmpbi spray to numb your throat. Sucking on [...] occurs, please contact your Doctor. Please call [phone] before 8pm Mon-Fri with problems, questions or concerns. If you call after 8pm or on weekends, call the Hospital at [phone] and ask to speak to the Engine Dynamometer Tester customer relations specialist and the pure culture operator will contact that person for you. [...] any problems. Where can you learn more? [facility] View your After Visit Summary and more online at [email or web address] If you would like to provide feedback about your hospital experience, please call the Office of Patient and Family Relations at . If you have received this After Visit Summary in error, please immediately return it in person to the department, or notify the [facility] Privacy Office by calling toll free at between the hours of 8AM and 5PM to arrange for our retrieval of the documents at no cost to you. Content Version: 12.2 ?? [id number] [employer]. Care instructions adapted under license by [facility]. If you have questions about a medical condition or this instruction, always ask your healthcare professional. [employer] disclaims any warranty or liability for your [...] meter kit. 1 each 0 12/14/2014 Insulin [place], Disposable, (BD INSULIN PEN NEEDLE UF [...] glucose meter kit. 1 each 0 Insulin [place], Disposable, (BD INSULIN PEN NEEDLE UF [...] 05/26/2024 1:10 PM [place] [address] Gavin Carrillo MD [facility] INTERVENTIONAL [place] [address] 06/05/2024 1:20 PM EST Office Visit Cardiology at [address] [address] Milagros Hernandez MD [facility] [place] [address] Scheduled Procedures Name Priority Associated Diagnoses Date/Ti me EGD, UPPER GI ENDOSCOPY (WRV U 2.09) Peptic stricture of esophagus documented as of this encounter Procedures Procedure Name Priority Date/Time Associated Diagnosis Comments Up Gi Endoscopy, Ball Dil, 30Mm (03757) 02/26/2023 2:09 PM EDT Peptic stricture of esophagus POCT GLUCOSE Routine 02/26/2023 1:28 PM EDT documented in this encounter Results * POCT Glucose (02/26/2023 1:28 PM EDT) Glucose, POC 71 65 - 199 mg/dL [facility] Comment: Supplemental ranges: <140 mg/dL before meals <180 mg/dL all other times of the day Blood 02/26/2023 1:28 PM EDT 02/26/2023 1:28 PM EDT David Dejesus MD POINT OF CARE TEST ORDERABLES [facility] [place] [address] documented in this encounter Visit Diagnoses Diagnosis [...] RN) documented in this encounter Care Teams Dough Puncher Relationship Specialty Start Date End Date Ana Gillespie APRN [address] [place] [address] PCP - General Family Medicine 02/03/19 documented as of this encounter
--- OUTSIDE RECORDS SUMMARY | 2024-05-19 20:28 | XMS_ITS | Encounter Summary ---
Author Organization [facility] [place] [address] Care Team Providers Care Inspector And Tester Name Role Phone Ana Gillespie APRN Primary Care Provider [phone] Encounter Details Date Type Department Care Team (Late st Contact Info) Description 01/12/2023 Orders Only [place] [address] David Dejesus MD [facility] [place] [address] Peptic stricture of esophagus Social History Tobacco [...] 05/26/2024 1:10 PM EST Appointment [place] [address] Gavin Carrillo MD [facility] [place] [address] 06/05/2024 1:20 PM EST Office Visit Cardiology at [address] [address] Milagros Hernandez MD [facility] [place] [address] Scheduled Procedures Name Priority Associated Diagnoses Date/Ti me EGD, UPPER GI ENDOSCOPY (WRV U 2.09) Peptic stricture of esophagus documented as of this encounter Visit Diagnoses Diagnosis Peptic stricture of esophagus Stricture and stenosis of esophagus documented in this encounter Care Teams Inspector And Tester Relationship Specialty Start Date End Date Ana Gillespie APRN [address] [place] [address] PCP - General Family Medicine 02/03/19 documented as of this encounter
--- OUTSIDE RECORDS SUMMARY | 2024-05-19 20:28 | XMS_ITS | Encounter Summary ---
Author Organization [facility] Address [facility] [place] [address] Care Team Providers Care Rigging Up Man Name Role Phone Ana Gillespie VAUGHN Primary Care Provider [phone] Encounter Details Date Type Department Care Team (Late st Contact Info) Description 01/13/2023 Telephone Gastroenterology at [place] [phone] Parris Maravilla Social History Tobacco Use Types [...] [place] [address] Gavin Carrillo MD [facility] INTERVENTIONAL [place] [address] 06/05/2024 1:20 PM EST Office Visit Cardiology at [address] [address] Milagros Hernandez MD [facility] [place] [address] Scheduled Procedures Name Priority Associated Diagnoses Date/Ti me EGD, UPPER GI ENDOSCOPY (WRV U 2.09) Peptic stricture of esophagus documented as of this encounter Visit Diagnoses Not on filedocumented in this encounter Care Teams Rigging Up Man Relationship Specialty Start Date End Date Ana Gillespie APRN [address] [place] [address] PCP - General Family Medicine 02/03/19 documented as of this encounter
--- OUTSIDE RECORDS SUMMARY | 2024-05-19 20:28 | XMS_ITS | Encounter Summary ---
Author Organization [facility] [place] [address] Care Team Providers Care Home Health Attendant Name Role Phone Ana Gillespie APRN Primary Care Provider [phone] Encounter Details Date Type Department Care Team (Late st Contact Info) Description 12/24/2022 Orders [place] [address] David Dejesus MD [facility] [place] [address] Peptic stricture of esophagus Social History Tobacco [...] 05/26/2024 1:10 PM EST [place] [address] Gavin Carrillo MD [facility] INTER[place]ION[place] [address] 06/05/2024 1:20 PM EST Office Visit Cardiology at [address] [address] Milagros Hernandez MD [facility] [place] [address] Scheduled Orders Name Type Priority Associated Diagnoses [...] esophagus documented in this encounter Care Teams Home Health Attendant Relationship Specialty Start Date End Date Ana Gillespie APRN [address] [place] [address] PCP - General Family Medicine 02/03/19 documented as of this encounter
--- OUTSIDE RECORDS SUMMARY | 2024-05-19 20:28 | XMS_ITS | Encounter Summary ---
Author Organization [facility] Address [facility] [place] [address] Care Team Providers Care Maintenance Mechanic Name Role Phone Ana Gillespie APRN Primary Care Provider [phone] Reason for Visit * Reason Onset Date Comments Medication Refill 03/03/2023 Metoprolol Suc cinate, instruction change. Encounter Details Date Type Department Care Team (Late st Contact Info) Description 03/03/2023 Refill Cardiology at [address] [address] Milagros Hernandez MD [facility] [address] Medication Refill (Metoprolol Succinate, instruction change.) Social [...] 05/26/2024 1:10 PM EST Appointment [place] [address] Gavin Carrillo MD [facility] [place]ION[place] [address] 06/05/2024 1:20 PM EST Office Visit Cardiology at [address] [address] Milagros Hernandez MD [facility] [place] [address] Scheduled Procedures Name Priority Associated Diagnoses Date/Ti me EGD, UPPER GI ENDOSCOPY (WRV U 2.09) Peptic stricture of esophagus documented as of this encounter Visit Diagnoses Diagnosis HFrEF (heart failure with reduced ejection fraction) documented in this encounter Care Teams Maintenance Mechanic Relationship Specialty Start Date End Date Ana Gillespie APRN [address] [place] [address] PCP - General Family Medicine 02/03/19 documented as of this encounter
--- OUTSIDE RECORDS SUMMARY | 2024-05-19 20:28 | XMS_ITS | Encounter Summary ---
Author Organization [facility] Address [facility] Marly petersen [place] [id number] Care Team Providers Care Prepared Foods Service Team Member Name Role Phone Ana Gillespie APRN Primary Care Provider [phone] Encounter Details Date Type Department Care Team [...] 05/26/2024 1:10 PM EST Appointment Radiology at [place] [phone] Gavin Carrillo MD [facility] [place] [address] 06/05/2024 1:20 PM EST Office Visit Cardiology at [address] [address] Milagros Hernandez MD [facility] [place] [address] Scheduled Procedures Name Priority Associated Diagnoses Date/Ti me EGD, UPPER GI ENDOSCOPY (WRV U 2.09) Peptic stricture of esophagus documented as of this encounter Visit Diagnoses Not on filedocumented in this encounter Care Teams Prepared Foods Service Team Member Relationship Specialty Start Date End Date Ana Gillespie APRN [address] [place] [address] PCP - General Family Medicine 02/03/19 documented as of this encounter
--- OUTSIDE RECORDS SUMMARY | 2024-05-19 20:28 | XMS_ITS | Encounter Summary ---
Author Organization [facility] [place] [address] Care Team Providers Care Green House Manager Name Role Phone Ana Gillespie RECREATION PROGRAM SPECIALIST Primary Care Provider [phone] Encounter Details Date Type Department Care Team (Late st Contact Info) Description 12/10/2022 Telephone [place] [phone] Jessica Beckamn Social History Tobacco Use Types Packs/Day Years [...] 05/26/2024 1:10 PM [place] [phone] Gavin Carrillo MD [facility] [address] INTER[place]ION[place] [address] 06/05/2024 1:20 PM EST Office Visit Cardiology at [address] [address] Milagros Hernandez MD [facility] [place] [place] [address] Scheduled Procedures Name Priority Associated Diagnoses Date/Ti me EGD, UPPER GI ENDOSCOPY (WRV U 2.09) Peptic stricture of esophagus documented as of this encounter Visit Diagnoses Not on filedocumented in this encounter Care Teams Green House Manager Relationship Specialty Start Date End Date Ana Gillespie APRN [address] [place] [address] PCP - General Family Medicine 02/03/19 documented as of this encounter
--- OUTSIDE RECORDS SUMMARY | 2024-05-19 20:28 | XMS_ITS | Encounter Summary ---
Author Organization [facility] Address [facility] [place] [address] Care Team Providers Care Mix House Operator Name Role Phone Ana Gillespie VAUGHN Primary Care Provider [phone] Encounter Details Date Type Department Care Team (Late st Contact Info) Description 12/21/2022 Telephone [place] [address] Jessica Beckman Social History Tobacco [...] 05/26/2024 1:10 PM [place] [address] Gavin Carrillo MD [facility] [place] [address] 06/05/2024 1:20 PM EST Office Visit Cardiology at [address] [address] Milagros Hernandez MD [facility] [place] [address] Scheduled Procedures Name Priority Associated Diagnoses Date/Ti me EGD, UPPER GI ENDOSCOPY (WRV U 2.09) Peptic stricture of esophagus documented as of this encounter Visit Diagnoses Not on filedocumented in this encounter Care Teams Mix House Operator Relationship Specialty Start Date End Date Ana Gillespie APRN [address] [place] [address] PCP - General Family Medicine 02/03/19 documented as of this encounter
--- OUTSIDE RECORDS SUMMARY | 2024-05-19 20:28 | XMS_ITS | Encounter Summary ---
Author Organization [facility] [place] [address] Care Team Providers Care Communications Professor Name Role Phone Ana Gillespie APRN Primary Care Provider [phone] Encounter Details Date Type Department Care Team (Late st Contact Info) Description 12/24/2022 11:54 AM EDT Anesthesia Event Gastroenterology at [facility] [place] [phone] Tim Wagner MD Marshall, Janice, CRNA Anesthesia Record Procedure Summary Procedure Name [...] 218.4 mg Dexmedetomidine 8 mcg Benzocaine 20% [place] 1 spray PHENYLephrine 720 mcg ePHEDrine 40 mg lactated ringers infusion 600 mL * Agents Name O2 Air N2O O2 Auxiliary Flowmeter 1 * Blood No blood administrations on file. 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 Patient Location: PACU/[facility] Level of Consciousness: Conscious but Sleepy [...] IR G-Tube Check/Change 11/27/2022 Hang Cooper PA [facility] INTERVENTIONL RAD IR G-TUBE PLACEMENT 09/11/2022 IR [...] Russ MD at [facility] MAIN OR Social History Tobacco Use Smoking [...] risks discussed with patient. Plan discussed with NURSE RECRUITER and attending. Anesthesia Screening documented in this encounter Plan of Treatment Upcoming Encounters Date Type Department Care Team (Late st Contact Info) Description 05/26/2024 1:10 PM EST Appointment [place] [phone] Gavin Carrillo MD [facility] [place] [address] 06/05/2024 1:20 PM EST Office Visit Cardiology at [address] [phone] Milagros Hernandez MD [facility] DR CARDIOLOGY [place], [place] [phone] Scheduled Procedures Name Priority Associated Diagnoses Date/Ti [...] at 100 mL/hr, Intravenous, CONTINUOUS, Starting on Ebtty 12/24/22 at 1115, Until Betty 12/24/22 at [...] mg documented in this encounter Care Teams Communications Professor Relationship Specialty Start Date End Date Ana Gillespie APRN [address] [place] [address] PCP - General Family Medicine 02/03/19 documented as of this encounter
--- OUTSIDE RECORDS SUMMARY | 2024-05-19 20:28 | XMS_ITS | Encounter Summary ---
Author Organization [facility] Address [facility] [place] [address] Care Team Providers Care System Technologist Name Role Phone Ana Gillespie APRN Primary Care Provider [phone] Encounter Details Date Type Department Care Team (Late st Contact Info) Description 01/12/2023 8:06 AM EDT Anesthesia Event [place] [address] Bogdan Song MD [facility] DR [place] [address] Cristine Gomez CRNA [facility] [place] [address] Anesthesia Record Procedure Summary Procedure Name Responsible [...] dorsal arch vein (top of foot), left; hbzp-gyz-ponhmc catheter system; Anatomical Landmarks; US Not Used; [...] Procedure Summary Date: 01/12/23 Room / Location: [facility] ENDO 2 / [facility] ENDOSCOPY Anesthesia Start: 805 Anesthesia Stop: 919 Procedure: EGD,WITH DILATION ESOPHAGUS WITH BALLOON,< 30 MM (WRVU 2.67) (Trunk) Diagnosis: Peptic stricture of esophagus (peptic stricture - needs dilation under anestheszi in 10-14 days) Surgeons: David Dejesus MD Responsible Provider: Bogdan Song MD Anesthesia Type: MAC ASA Status: 2 All Anesthesia Providers: Anesthesiologist: Bogdan Song MD LINE ANALYST: Chiquis Burnham CRNA Student Nurse Employee Development Manager: Irwin Novak Vitals Value Taken Time BP 113/54 01/12/23 0955 Temp Pulse Resp 17 01/12/23 0955 SpO2 97 % 01/12/23 0955 Pain Level 0 01/12/23 0940 Patient Location: PACU/[facility] Level of Consciousness: Awake and Alert [...] y.o. female. Procedure(s): EGD, [facility] Patient Active Problem List Diagnosis [...] PA [facility] INTERVENTIONL RAD ??? IR G-TUBE PLACEMENT 09/11/2022 IR G-Tube Placement 09/11/2022 Moustapha Hart MD [facility] INTERVENTIONL RAD ??? IR SUTURE RELEASE 09/25/2022 IR Suture Release 09/25/2022 Yoselin Ghosh PA [facility] INTERVENTIONL RAD ??? PERCUTANEOUS GASTROSTOMY N/A 09/11/2022 PERCUTANEOUS GASTROSTOMY performed by Aiden Flores MD at [facility] CATY ??? PRO COLONOSCOPY, BIOPSY N/A 03/20/2016 COLONOSCOPY FLEXIBLE, WITH BX performed by David Dejesus MD at [facility] ENDOSCOPY ??? PRO COLONOSCOPY, DIAGNOSTIC N/A 03/01/2020 COLONOSCOPY, DIAGNOSTIC performed by David Dejesus MD at [facility] ENDOSCOPY ??? PRO ENDOSCOPIC US EXAM, ESOPH N/A 03/31/2022 UPPER EUS- ENDOSCOPIC ULTRASOUND performed by David Dejesus MD at [facility] ENDOSCOPY ??? PRO UP GI ENDOSCOPY, BALL DIL, 30MM N/A 12/24/2022 EGD,WITH DILATION ESOPHAGUS WITH BALLOON,< 30 MM (WRVU 2.67) performed by David Dejesus [facility] ENDOSCOPY ??? PRO UPPER GI ENDOSCOPY, BIOPSY N/A 04/03/2014 UPPER GASTROINTESTINAL ENDOSCOPY,WITH BIOPSY SINGLE OR MULTIPLE performed by David Dejesus [facility] ENDOSCOPY ??? PRO UPPER GI ENDOSCOPY, BIOPSY N/A 03/20/2016 EGD WITH BIOPSY performed by David Dejesus MD at [facility] ENDOSCOPY ??? PRO UPPER GI ENDOSCOPY, BIOPSY N/A 11/22/2018 EGD WITH BIOPSY (WRVU 2.49) performed by David Dejesus MD at [facility] ENDOSCOPY ??? PRO UPPER GI ENDOSCOPY, BIOPSY N/A 03/01/2020 UPPER GASTROINTESTINAL ENDOSCOPY,WITH BIOPSY SINGLE OR MULTIPLE (WRVU 2.49) performed by David Dejesus MD at [facility] ENDOSCOPY ??? PRO UPPER GI ENDOSCOPY, BIOPSY N/A 09/23/2021 EGD WITH BIOPSY (WRVU 2.49) performed by David Dejesus MD at [facility] ENDOSCOPY ??? PRO UPPER GI ENDOSCOPY, BIOPSY N/A 03/31/2022 EGD WITH BIOPSY (WRVU 2.49) performed by David Dejesus MD at [facility] ENDOSCOPY ??? PRO UPPER GI ENDOSCOPY, BIOPSY N/A 07/03/2022 EGD WITH BIOPSY (WRVU 2.49) performed by David Dejesus MD at [facility] ENDOSCOPY ??? PRO UPPER GI ENDOSCOPY, DIAGNOSTIC N/A 04/03/2014 EGD, UPPER GI ENDOSCOPY performed by David Dejesus MD at [facility] ENDOSCOPY ??? PRO UPPER GI ENDOSCOPY, DIAGNOSTIC N/A 03/01/2020 EGD, UPPER GI ENDOSCOPY performed by David Dejesus MD at [facility] ENDOSCOPY ??? PRO UPPER GI ENDOSCOPY, DIAGNOSTIC N/A 09/09/2022 EGD, UPPER GI ENDOSCOPY (WRVU 2.09) performed by Ayo Russ MD at [facility] MAIN OR Social History Tobacco [...] risks discussed with patient. Plan discussed with LINE ANALYST and attending. Anesthesia Screening documented in this encounter Plan of Treatment Upcoming Encounters Date Type Department Care Team (Late st Contact Info) Description 05/26/2024 1:10 PM EST Appoint[place] [address] Gavin Carrillo MD [facility] [place]VENTION[place] [address] 06/05/2024 1:20 PM EST Office Visit Cardiology at [address] [address] Milagros Hernandez MD [facility] [place] [address] Scheduled Procedures Name Priority Associated [...] mg documented in this encounter Care Teams System Technologist Relationship Specialty Start Date End Date Ana Gillespie APRN [address] [place] [address] PCP - General Family Medicine 02/03/19 documented as of this encounter
--- OUTSIDE RECORDS SUMMARY | 2024-05-19 20:28 | XMS_ITS | Encounter Summary ---
Author Organization [facility] Address [facility] [place] [address] Care Team Providers Care Tong Carrier Name Role Phone Ana Gillespie VAUGHN Primary Care Provider [phone] Encounter Details Date Type Department Care Team (Late st Contact Info) Description 12/24/2022 12:00 PM EDT - 12/24/2022 12:30 PM EDT [place] [phone] David Dejesus MD [facility] [place] [address] EGD,WITH DILATION ESOPHAGUS WITH BALLOON,< 30 MM [...] 180 tablet 3 10/20/2021 Blood Sugar Diagnostic (VuzitUCH ULTRA TEST) StripIndications:Typ e 2 diabetes mellitus, [...] kit. 1 each 0 12/14/2014 Insulin [place], Disposable, (BD INSULIN PEN NEEDLE UF MINI) 31 x 07/23 NeedleIndications:Di abetes mellitus type 2, uncontrolled 1 Device by [facility].(Non-Drug; Combo Route) route 3 [...] meter kit. 1 each 0 Insulin [place], Disposable, (BD INSULIN PEN NEEDLE UF MINI) 31 x 3/16 Needle 1 Device by Misc.(Non-Drug; Combo Route) route 3 times daily as needed. 100 each 11 PHYSICAL EXAM: Blood pressure 110/57, pulse 62, temperature 36.2 ??C (97.2 ??F), temperature source Tympanic, QzT717 %. GEN: Alert, cooperative. Pleasant. In NAD [...] 05/26/2024 1:10 PM [place] [address] Gavin Carrillo MD [facility] [place] [address] 06/05/2024 1:20 PM EST Office Visit Cardiology at [address] [address] Milagros Hernandez MD [facility] [place] [address] Scheduled Procedures Name Priority Associated Diagnoses Date/Ti me EGD, UPPER GI ENDOSCOPY (WRV U 2.09) Peptic stricture of esophagus documented as of this encounter Procedures Procedure Name Priority Date/Time Associated Diagnosis Comments Up Gi Endoscopy, Ball Dil, 30Mm (66660) 12/24/2022 11:56 AM EDT Farrell's esophagus without dysplasia UPPER GI ENDOSCOPY Routine 12/24/2022 11 :46 AM EDT POCT GLUCOSE Routine 12/24/2022 11:02 AM EDT documented in this encounter Results * UPPER GI ENDOSCOPY (12/24/2022 11:46 AM EDT) UPPER GI ENDOSCOPY [facility] Endoscopy Procedure Date: 12/24/2022 11:46 AM ? Patient Name: Jennifer Irving ? Date of : 1960 ? Age: 62 ? Order #: [id number] ? Instrument Name: [id number] ? Procedure: ? Upper GI endoscopy Indications: [...] ERABLES Performing Organization Address City/[facility]/ZIP Co de Phone Number PROVATION * POCT Glucose (12/24/2022 11:02 AM EDT) Glucose, POC 123 65 - 199 mg/dL [facility] Comment: Supplemental ranges: <140 mg/dL before meals <180 mg/dL all other times of the day Blood 12/24/2022 11:0 2 AM EDT 12/24/2022 11:02 AM EDT David Dejesus MD POINT OF CARE TEST ORDERABLES Performing Organization Address City/[facility] Co de Phone Number [facility] [place] [address] documented in this encounter Visit Diagnoses Diagnosis [...] CRNA) documented in this encounter Care Teams Tong Carrier Relationship Specialty Start Date End Date Ana Gillespie APRN [address] [place] [address] PCP - General Family Medicine 02/03/19 documented as of this encounter
--- OUTSIDE RECORDS SUMMARY | 2024-05-19 20:28 | XMS_ITS | Encounter Summary ---
Author Organization [facility] [place] [address] Care Team Providers Care Inventory Taker Name Role Phone Ana Gillespie APRN Primary Care Provider [phone] Encounter Details Date Type Department Care Team (Late st Contact Info) Description 03/16/2023 1:02 PM EST Anesthesia [place] [phone] Rio Aceves MD [facility] [place] [address] Beti Cisneros CRNA [facility] [place] [address] Anesthesia Record Procedure Summary Procedure Name Responsible [...] by Sergey Jordan RN PIV 03/16/23; 1221; ucon-abu-toexqq catheter system; 22 gauge; metacarpal vein (top [...] Procedure Summary Date: 03/16/23 Room / Location: [facility] ENDO 2 / [facility] ENDOSCOPY Anesthesia Start: 1302 Anesthesia Stop: 1343 Procedure: EGD,WITH DILATION ESOPHAGUS WITH BALLOON,< 30 MM (WRVU 2.67) (Trunk) Diagnosis: Peptic stricture of esophagus (stricture dilation) Surgeons: David Dejesus MD Responsible Provider: Rio Aceves MD Anesthesia Type: general ASA Status: 3 All Anesthesia Providers: Anesthesiologist: Rio Aceves MD STEAM TENDER: Beti Cisneros CRNA Vitals Value Taken Time [...] IR G-Tube Check/Change 03/10/2023 Geronimo Chambers, DO [facility] INTERVENTIONL RAD ??? [...] (WRVU 2.67) performed by David Dejesus [facility] ENDOSCOPY ??? PRO UP GI ENDOSCOPY, BALL DIL, 30MM N/A 01/12/2023 EGD,WITH DILATION ESOPHAGUS WITH BALLOON,< 30 MM (WRVU 2.67) performed by David Dejesus [facility] ENDOSCOPY ??? PRO UP GI ENDOSCOPY, BALL DIL, 30MM N/A 02/26/2023 EGD,WITH DILATION ESOPHAGUS WITH BALLOON,< 30 MM (WRVU 2.67) performed by David Dejesus [facility] ENDOSCOPY ??? PRO UPPER GI ENDOSCOPY, BIOPSY N/A 04/03/2014 UPPER GASTROINTESTINAL ENDOSCOPY,WITH BIOPSY SINGLE OR MULTIPLE performed by David Dejesus [facility] ENDOSCOPY ??? PRO UPPER GI ENDOSCOPY, [...] 04/03/2014 EGD, UPPER GI ENDOSCOPY performed by aDvid Dejesus MD at [facility] [...] with patient and spouse. Plan discussed with STEAM TENDER and attending. Anesthesia Screening documented in this encounter Plan of Treatment Upcoming Encounters Date Type Department Care Team (Late st Contact Info) Description 05/26/2024 1:10 PM EST Appointment Radiology at [place] [phone] Gavin Carrillo MD [facility] [address] [place] [address] 06/05/2024 1:20 PM EST Office Visit Cardiology at [address] [phone] Milagros Hernandez MD [facility] [place] [address] Scheduled Procedures Name Priority Associated Diagnoses Date/Ti [...] mg documented in this encounter Care Teams Inventory Taker Relationship Specialty Start Date End Date Ana Gillespie APRN [address] [place] [address] PCP - General Family Medicine 02/03/19 documented as of this encounter
--- OUTSIDE RECORDS SUMMARY | 2024-05-19 20:28 | XMS_ITS | Encounter Summary ---
Author Organization [facility] [place] [address] Care Team Providers Care Nuclear Physics Teacher Name Role Phone Ana Gillespie VAUGHN Primary Care Provider [phone] Encounter Details Date Type Department Care Team (Late st Contact Info) Description 01/27/2023 Telephone G[place] [phone] Parris Maravilla Social History Tobacco Use Types [...] 05/26/2024 1:10 PM EST Appointment [place] [phone] Gavin Carrillo MD [facility] [address] [place] [address] 06/05/2024 1:20 PM EST Office Visit Cardiology at [address] [address] Milagros Hernandez MD [facility] [place] [address] Scheduled Procedures Name Priority Associated Diagnoses Date/Ti me EGD, UPPER GI ENDOSCOPY (WRV U 2.09) Peptic stricture of esophagus documented as of this encounter Visit Diagnoses Not on filedocumented in this encounter Care Teams Nuclear Physics Teacher Relationship Specialty Start Date End Date Ana Gillespie APRN [address] [place] [address] PCP - General Family Medicine 02/03/19 documented as of this encounter
--- OUTSIDE RECORDS SUMMARY | 2024-05-19 20:28 | XMS_ITS | Encounter Summary ---
[place] [address] Care Team Providers Care Hiv Prevention Specialist Name Role Phone Ana Gillespie VAUGHN Primary Care Provider [phone] Reason for Referral * Diagnostic Test (Routine) - Closed Specialty Diagnoses / Procedures Referred By Contjovani t Referred To Contact Radiology Diagnoses Farrell's esophagus with high grade dysplasia Gastrostomy tube in place Procedures IR G-Tube Check/Change Steven Harding MD [facility] [place] [address] [place] [address] Referral ID Status Reason Start Date Expiration Date V isits Requested Visits Authorized [id number] Closed Specialty Service Requested 03/09/2023 09/06/2024 1 1 Encounter Details Date Type Department Care Team (Late st Contact Info) Description 03/09/2023 [place] [address] Steven Harding MD [facility] [place] [address] Farrell's esophagus with high grade dysplasia; Gastrostomy [...] at which time a balloon retrained 16 [place] EnFit G-tube was placed. Date/Procedure Meds Given/Comments [...] IR G-Tube Check/Change 11/27/2022 Hang Cooper PA [facility] INTERVENTIONL RAD IR G-TUBE PLACEMENT 09/11/2022 IR G-Tube Placement 09/11/2022 Moustapha Hart MD [facility] INTERVENTIONL RAD IR SUTURE RELEASE 09/25/2022 IR Suture Release 09/25/2022 Yoselin Ghosh PA [facility] INTERVENTIONL RAD PERCUTANEOUS GASTROSTOMY N/A 09/11/2022 PERCUTANEOUS GASTROSTOMY performed by Aiden Flores MD at [facility] CATY PRO COLONOSCOPY, BIOPSY N/A 03/20/2016 COLONOSCOPY FLEXIBLE, WITH BX performed by David Dejesus MD at [facility] ENDOSCOPY PRO COLONOSCOPY, DIAGNOSTIC N/A 03/01/2020 COLONOSCOPY, DIAGNOSTIC performed by David Dejesus MD at [facility] ENDOSCOPY PRO ENDOSCOPIC US EXAM, ESOPH N/A 03/31/2022 UPPER EUS- ENDOSCOPIC ULTRASOUND performed by David Dejesus MD at [facility] ENDOSCOPY PRO UP GI ENDOSCOPY, BALL DIL, 30MM N/A 12/24/2022 EGD,WITH DILATION ESOPHAGUS WITH BALLOON,< 30 MM (WRVU 2.67) [facility] UP GI ENDOSCOPY, BALL DIL, 30MM N/A 01/12/2023 EGD,WITH DILATION ESOPHAGUS WITH BALLOON,< 30 MM (WRVU 2.67) performed by David Dejesus MDat [facility] ENDOSCOPY PRO UP GI ENDOSCOPY, BALL DIL, 30MM N/A 02/26/2023 EGD,WITH DILATION ESOPHAGUS WITH BALLOON,< 30 MM (WRVU 2.67) [facility] ENDOSCOPY PRO UPPER GI ENDOSCOPY, BIOPSY N/A 04/03/2014 UPPER GASTROINTESTINAL ENDOSCOPY,WITH BIOPSY SINGLE OR MULTIPLE performed by David Dejesus MDat [facility] ENDOSCOPY PRO UPPER GI ENDOSCOPY, BIOPSY N/A 03/20/2016 EGD WITH BIOPSY performed by David Dejesus MD at [facility] ENDOSCOPY PRO UPPER GI ENDOSCOPY, BIOPSY N/A 11/22/2018 EGD WITH BIOPSY (WRVU 2.49) performed by David Dejesus MD at [facility] ENDOSCOPY PRO UPPER GI ENDOSCOPY, BIOPSY N/A 03/01/2020 UPPER GASTROINTESTINAL ENDOSCOPY,WITH BIOPSY SINGLE OR MULTIPLE (WRVU 2.49) performed by David Dejesus MD at [facility] ENDOSCOPY PRO UPPER GI ENDOSCOPY, BIOPSY N/A 09/23/2021 EGD WITH BIOPSY (WRVU 2.49) performed by David Dejesus MD at [facility] ENDOSCOPY PRO UPPER GI ENDOSCOPY, BIOPSY N/A 03/31/2022 EGD WITH BIOPSY (WRVU 2.49) performed by David Dejesus MD at [facility] ENDOSCOPY PRO UPPER GI ENDOSCOPY, BIOPSY N/A 07/03/2022 EGD WITH BIOPSY (WRVU 2.49) performed by David Dejesus MD at [facility] ENDOSCOPY PRO UPPER GI ENDOSCOPY, DIAGNOSTIC N/A 04/03/2014 EGD, UPPER GI ENDOSCOPY performed by David Dejesus MD at [facility] ENDOSCOPY PRO UPPER GI ENDOSCOPY, DIAGNOSTIC N/A 03/01/2020 EGD, UPPER GI ENDOSCOPY performed by David Dejesus MD at [facility] ENDOSCOPY PRO UPPER GI ENDOSCOPY, DIAGNOSTIC N/A 09/09/2022 EGD, UPPER GI ENDOSCOPY (WRVU 2.09) performed by Ayo Russ MD at [facility] MAIN OR Medications: Current [...] 3 lancets (ONE TOUCH DELICA) [facility] each by Other route 3 times daily. by Other route. 1 box= 100 test strips; 3 boxes = 300 test strips. 300 each 3 Blood-Glucose Meter (ONETOUCH ULTRA2) Kit by Other route. 1 = one blood glucose meter kit. 1 each 0 Insulin [place], Disposable, (BD INSULIN PEN NEEDLE UF MINI) [...] 05/26/2024 1:10 PM [place] [address] Gavin Carrillo MD [facility] [place] [address] 06/05/2024 1:20 PM EST Office Visit Cardiology at [address] [phone] Milagros Hernandez MD [facility] [address] CARDIOLOGY [place], [place] [phone] Scheduled Procedures Name Priority Associated Diagnoses Date/Ti [...] procedure was performed under fluoroscopic guidance. ??A emergency preparedness coordinator fluoroscopic image was obtained. ??Contrast was injected through the gastrostomy catheter and another fluoroscopic image was obtained. ??Through the catheter, an 0.035 Amplatz wire was advanced. ??The catheter was removed. ??Over the wire, a new 16-Fr omp-odz-gqkmvjl (ESTRELLITA) gastrostomy catheter was advanced. ??The retention [...] gastric lumen. ?? Exchange for new 16-Fr sgz-dqg-qbczwfq (ESTRELLITA) catheter positioned within the stomach. ?? [...] place documented in this encounter Care Teams Hiv Prevention Specialist Relationship Specialty Start Date End Date Ana Gillespie APRN [address] [place] [address] PCP - General Family Medicine 02/03/19 documented as of this encounter
--- OUTSIDE RECORDS SUMMARY | 2024-05-19 20:28 | XMS_ITS | Encounter Summary ---
Author Organization [facility] [place] [address] Care Team Providers Care Asphalt Machine Operator Name Role Phone Ana Gillespie CONCRETE LABORER Primary Care Provider [phone] Encounter Details Date Type Department Care Team (Late st Contact Info) Description 03/01/2023 Telephone [place] [address] Parris Maravilla Social History Tobacco [...] 05/26/2024 1:10 PM [place] [phone] Gavin Carrillo MD [facility] [address] INTER[place]ION[place] [address] 06/05/2024 1:20 PM EST Office Visit Cardiology at [address] [phone] Milagros Hernandez MD [facility] [place] [address] Scheduled Procedures Name Priority Associated Diagnoses Date/Ti me EGD, UPPER GI ENDOSCOPY (WRV U 2.09) Peptic stricture of esophagus documented as of this encounter Visit Diagnoses Not on filedocumented in this encounter Care Teams Asphalt Machine Operator Relationship Specialty Start Date End Date Ana Gillespie APRN [address] [place] [address] PCP - General Family Medicine 02/03/19 documented as of this encounter
--- OUTSIDE RECORDS SUMMARY | 2024-05-19 20:28 | XMS_ITS | Encounter Summary ---
[place] [address] Care Team Providers Care Process Treater Name Role Phone Ana Gillespie VAUGHN Primary Care Provider [phone] Encounter Details Date Type Department Care Team (Late Contact Info) Description 01/14/2023 Telephone [place] [address] Juice Maxwell RN Social History [...] 05/26/2024 1:10 PM [place] [phone] [facility] INTERVENTIONAL RADIOLOGY [place], [place] [address] 06/05/2024 1:20 PM EST Office Visit Cardiology at [address] [phone] [facility] [place] [place] [address] Scheduled Procedures Name Priority Associated Diagnoses Date/Ti me EGD, UPPER GI ENDOSCOPY (WRV U 2.09) Peptic stricture of esophagus documented as of this encounter Visit Diagnoses Not on filedocumented in this encounter Care Teams Process Treater Relationship Specialty Start Date End Date Ana Gillespie APRN [address] [place] [address] PCP - General Family Medicine 02/03/19 documented as of this encounter
--- OUTSIDE RECORDS SUMMARY | 2024-05-19 20:28 | XMS_ITS | Encounter Summary ---
[place] [address] Care Team Providers Care Housing Relocation Name Role Phone Ana Gillespie VAUGHN Primary Care Provider [phone] Reason for Referral * Diagnostic Test (Routine) - Closed Specialty Diagnoses / Procedures Referred By Esperanza rodríguez Referred To Contact Radiology Diagnoses Farrell's esophagus with high grade dysplasia Gastrostomy tube in place Procedures IR G-Tube Check/Change Steven Harding MD [facility] [place] [address] [place] [address] Referral ID Status Reason Start Date Expiration Date V isits Requested Visits Authorized [id number] Closed Specialty Service Requested 03/09/2023 09/06/2024 1 1 Reason for Visit * Diagnostic Test (Routine) - Closed Specialty Diagnoses / Procedures Referred By Esperanza rodríguez Referred To Contact Radiology Diagnoses Farrell's esophagus with high grade dysplasia Gastrostomy tube in place Procedures IR G-Tube Check/Change Steven Harding MD [facility] [place] [address] [place] [address] Referral ID Status Reason Start Date Expiration Date V isits Requested Visits Authorized [id number] Closed Specialty Service Requested 03/09/2023 09/06/2024 1 1 Encounter Details Date Type Department Care Team (Latest Contact Info) Description 03/10/2023 12:57 PM EDT - 03/10/2023 11:59 PM EDT Hospital [place] [address] Azeem Alarcon MD [facility] [place] [address] Farrell's esophagus with high grade dysplasia; Gastrostomy [...] encounter Discharge Instructions * Discharge Instructions* Sergey Jordna RN - 03/10/2023 4:17 PM EDT [facility] Interventional Radiology Discharge Instructions for Feeding [...] or its attachments. INTERVENTIONAL RADIOLOGY PHONE NUMBERS [phone] If you have a NON Low profile feeding tube, call with any questions or concerns. During regular office hours call: [phone]. If it is after regular office hours, weekends or holidays, please call [phone] and ask to speak to the Brilliandeer Looper nurse practitioner physician assistant for Interventional Radiology. If you have a low profile ???ESTRELLITA-BARLOW?? feeding tube, please call Dejah Stauffer RN for any issues: [phone]. Revised 02/23/19 documented in this encounter Medications [...] meter kit. 1 each 0 12/14/2014 Insulin [place], Disposable, (BD INSULIN PEN NEEDLE UF MINI) [...] of : 1960 AGE: 62 y.o. Address: [address] [address] Phone: There are no phone numbers on file. Mobile: Telephone Information: Referring Provider: Steven Harding REASON FOR VISIT: G-tube check/exchange Order Questions Answers Where will study be performed? [facility] Radiology [120] Is the patient on anticoagulant [...] 05/26/2024 1:10 PM [place] [address] Gavin Carrillo MD [facility] [place] [address] 06/05/2024 1:20 PM EST Office Visit Cardiology at [address] [phone] Milagros Hernandez MD [facility] [place] [place] [address] Scheduled Procedures Name Priority Associated [...] procedure was performed under fluoroscopic guidance. ??A metal sash setter fluoroscopic image was obtained. ??Contrast was injected through the gastrostomy catheter and another fluoroscopic image was obtained. ??Through the catheter, an 0.035 Amplatz wire was advanced. ??The catheter was removed. ??Over the wire, a new 16-Fr yuy-zaa-mvzyxqt (ESTERLLITA) gastrostomy catheter was advanced. ??The retention balloon [...] gastric lumen. ?? Exchange for new 16-Fr llm-vuw-uzilrei (ESTRELLITA) catheter positioned within the stomach. ?? Impression: Successful gastrostomy catheter exchange. ??The catheter may be used immediately. Resident/Fellow: None. Attending: Dr. Geronimo Chambers. I, Dr. Chambers, was present throughout the procedure. Azeem Alarcon MD [facility] IR ORDERABLES * POCT Glucose (03/10/2023 3:25 PM EDT) Glucose, POC 76 65 - 199 mg/dL [facility] Comment: Supplemental ranges: <140 mg/dL before meals <180 mg/dL all other times of the day Blood 03/10/2023 3:25 PM EDT 03/10/2023 3:25 PM EDT Azeem Alarcon MD POINT OF CARE TEST O RDERABLES [facility] [place] [address] documented in this encounter Visit Diagnoses Diagnosis [...] mLs documented in this encounter Care Teams Housing Relocation Relationship Specialty Start Date End Date Ana Gillespie APRN [address] [place] [address] PCP - General Family Medicine 02/03/19 documented as of this encounter
--- OUTSIDE RECORDS SUMMARY | 2024-05-19 20:28 | XMS_ITS | Encounter Summary ---
Author Organization [facility] [place] [address] Care Team Providers Care Diabetologist Name Role Phone Ana Gillespie VAUGHN Primary Care Provider [phone] Reason for Visit * Reason Onset Date Comments Triage 02/24/2023 hypotension Encounter Details Date Type Department Care Team (Late st Contact Info) Description 02/24/2023 Telephone Cardiology at [address] [phone] Chela Inman gas engine mechanic (hypotension) Social History Tobacco Use Types Packs/Day [...] BP med(s). She can be reached at [phone]. Call placed to Campos, spouse & occasional caregiver to get more information for Dr Hernandez. [...] 05/26/2024 1:10 PM [place] [phone] Gavin Carrillo MD [facility] [place] [address] 06/05/2024 1:20 PM EST Office Visit Cardiology at [address] [phone] Milagros Hernandez MD [facility] [place] [address] Scheduled Procedures Name Priority Associated Diagnoses Date/Ti me EGD, UPPER GI ENDOSCOPY (WRV U 2.09) Peptic stricture of esophagus documented as of this encounter Visit Diagnoses Not on filedocumented in this encounter Care Teams Diabetologist Relationship Specialty Start Date End Date Ana Gillespie APRN [address] [place] [address] PCP - General Family Medicine 02/03/19 documented as of this encounter
--- OUTSIDE RECORDS SUMMARY | 2024-05-19 20:28 | XMS_ITS | Encounter Summary ---
Author Organization [facility] Address [facility] Marly petersen [place] [id number] Care Team Providers Care Drum Sander Offbearer Name Role Phone Ana Gillespie APRN Primary Care Provider [phone] Encounter Details Date Type Department Care [...] 05/26/2024 1:10 PM EST Appointment Radiology at [place] [phone] Gavin Carrillo MD [facility] [place] [address] 06/05/2024 1:20 PM EST Office Visit Cardiology at [address] [phone] Milagros Hernandez MD [facility] [place] [address] Scheduled Procedures Name Priority Associated Diagnoses Date/Ti me EGD, UPPER GI ENDOSCOPY (WRV U 2.09) Peptic stricture of esophagus documented as of this encounter Visit Diagnoses Not on filedocumented in this encounter Care Teams Drum Sander Offbearer Relationship Specialty Start Date End Date Ana Gillespie APRN [address] [place] [address] PCP - General Family Medicine 02/03/19 documented as of this encounter
--- OUTSIDE RECORDS SUMMARY | 2024-05-19 20:28 | XMS_ITS | Encounter Summary ---
Author Organization [facility] [place] [address] Care Team Providers Care Geography Professor Name Role Phone Ana Gillespie APRN Primary Care Provider [phone] Encounter Details Date Type Department Care Team (Late st Contact Info) Description 02/26/2023 Orders [place] [address] David Dejesus MD [facility] [place] [address] Peptic stricture of esophagus Social History Tobacco [...] 05/26/2024 1:10 PM EST Appointment [place] [address] Gavin Carrillo MD [facility] [place] [address] 06/05/2024 1:20 PM EST Office Visit Cardiology at [address] [address] Milagros Hernandez MD [facility] [address] Scheduled Orders Name Type Priority Associated Diagnoses [...] esophagus documented in this encounter Care Teams Geography Professor Relationship Specialty Start Date End Date Ana Gillespie APRN [address] [place] [address] PCP - General Family Medicine 02/03/19 documented as of this encounter
--- OUTSIDE RECORDS SUMMARY | 2024-05-19 20:29 | XMS_ITS | Encounter Summary ---
Author Organization [facility] Address [facility] [place] [address] Care Team Providers Care Research Manager Name Role Phone Ana Gillespie VAUGHN Primary Care Provider [phone] Reason for Visit * Diagnostic Test (Routine) - Closed Specialty Diagnoses / Procedures Referred By Esperanza rodríguez Referred To Contact Radiology Diagnoses Neuroleptic-induced parkinsonism Procedures IR G-Tube Check/Change IR GJ-Tube Check/Change Fannie Conde PA [facility] [place] [address] [facility] [place] [address] Referral ID Status Reason Start Date Expiration Date V isits Requested Visits Authorized [id number] Closed Specialty Service Requested 11/23/2022 05/26/2024 1 1 Encounter Details Date Type Department Care Team (Latest Contact Info) Description 11/27/2022 1:04 PM EDT - 11/27/2022 11:59 PM EDT Hospital [place] [address] Azeem Alarcon MD [facility] [place] [address] Neuroleptic-induced parkinsonism Discharge Disposition: Home Social History [...] strips. 300 each 3 12/14/2014 Blood-Glucose Meter (Binary FountainTOUCH ULTRA2) KitIndications:Type 2 diabetes mellitus, uncontrolled by Other route. 1 = one blood glucose meter kit. 1 each 0 12/14/2014 Insulin Stowell, Disposable, (BD INSULIN PEN NEEDLE UF MINI) [...] of : 1960 AGE: 62 y.o. Address: [address] [address] (home) Mobile: Telephone Information: Referring Provider: Fannie Conde REASON FOR VISIT: Order Questions Answers Where will study be performed? [facility] Radiology [120] Is the patient on [...] of : 1960 AGE: 62 y.o. Address: [address] [address] (home) Mobile: Telephone Information: Referring Provider: Fannie Conde REASON FOR VISIT: Order Questions Answers Where will study be performed? [facility] Radiology [120] Is the patient on [...] 05/26/2024 1:10 PM [place] [phone] Gavin Carrillo MD [facility] DR INTERVENTIONAL RADIOLOGY [place], [place] [id number] 06/05/2024 1:20 PM EST Office Visit Cardiology at [address] [address] Milagros Hernandez MD [facility] DR CARDIOLOGY [place], [place] [id number] Scheduled Procedures Name Priority Associated Diagnoses Date/Ti [...] monitored. Technique: The patient was positioned supine. Burlesque Dancer imaging was performed with air injection through [...] Glucose, POC 128 65 - 199 mg/dL [facility] Comment: Supplemental ranges: <140 mg/dL before meals <180 mg/dL all other times of the day Blood 11/27/2022 1:25 PM EDT 11/27/2022 1:25 PM EDT Azeem Alarcon MD POINT OF CARE TEST O RDERABLES [facility] [place] [address] documented in this encounter Visit Diagnoses Diagnosis Neuroleptic-induced parkinsonism Secondary Parkinsonism documented in this encounter Care Teams Research Manager Relationship Specialty Start Date End Date Ana Gillespie APRN [address] [place] [address] PCP - General Family Medicine 02/03/19 documented as of this encounter
--- OUTSIDE RECORDS SUMMARY | 2024-05-19 20:29 | XMS_ITS | Encounter Summary ---
Author Organization [facility] Address [facility] Marly petersen [place] [id number] Care Team Providers Care Erection Shop Supervisor Name Role Phone Ana Gillespie APRN Primary Care Provider [phone] Encounter Details Date Type Department Care Team [...] 05/26/2024 1:10 PM EST Appointment Radiology at [place] [phone] Gavin Carrillo MD [facility] [place] [address] 06/05/2024 1:20 PM EST Office Visit Cardiology at [address] [address] Milagros Hernandez MD [facility] [place] [address] Scheduled Procedures Name Priority Associated Diagnoses Date/Ti me EGD, UPPER GI ENDOSCOPY (WRV U 2.09) Peptic stricture of esophagus documented as of this encounter Visit Diagnoses Not on filedocumented in this encounter Care Teams Erection Shop Supervisor Relationship Specialty Start Date End Date Ana Gillespie APRN [address] [place] [address] PCP - General Family Medicine 02/03/19 documented as of this encounter
--- OUTSIDE RECORDS SUMMARY | 2024-05-19 20:29 | XMS_ITS | Encounter Summary ---
[place] [address] Care Team Providers Care Certified Tower Climber Name Role Phone Ana Gillespie APRN Primary Care Provider [phone] Reason for Referral * Consultation (Routine) - Closed Specialty Diagnoses / Procedures Referred By Esperanza t Referred To Contact Diagnoses Gastrojejunostomy tube status Ana Gillespie APRN [address] [place] [address] [facility] [address] [place] [phone] Referral ID Status Reason Start Date Expiration Date V isits Requested Visits Authorized [id number] Closed Continuity of Care PCP Updated and/or Approved 11/17/2022 11/17/2023 12 12 Encounter Details Date Type Department Care Team (Latest Contact Info) Description 11/17/2022 Transcribe Orders eDH Incoming Referrals [phone] Ana Gillespie APRN [address] [place], [place] [id number] Gastrojejunostomy tube status Social History Tobacco Use [...] 05/26/2024 1:10 PM EST [place]oint[place] [address] Gavin Carrillo MD [facility] [place] [address] 06/05/2024 1:20 PM EST Office Visit Cardiology at [address] [address] Milagros Hernandez MD [facility] [place] [address] Scheduled Procedures Name Priority Associated [...] status documented in this encounter Care Teams Certified Tower Climber Relationship Specialty Start Date End Date Ana Gillespie APRN [address] [place] [address] PCP - General Family Medicine 02/03/19 documented as of this encounter
--- OUTSIDE RECORDS SUMMARY | 2024-05-19 20:29 | XMS_ITS | Encounter Summary ---
Author Organization [facility] [place] [address] Care Team Providers Care Caser Name Role Phone Ana Gillespie VAUGHN Primary Care Provider [phone] Reason for Visit * Reason Onset Date Comments Diabetes 09/29/2022 Encounter Details Date Type Department Care Team (Late st Contact Info) Description 09/29/2022 Telephone [place] [phone] Elsie Erickson APRN [facility] [place] [address] Diabetes Social History Tobacco Use Types Packs/Day [...] 05/26/2024 1:10 PM [place] [phone] Gavin Carrillo MD [facility] [place] [address] 06/05/2024 1:20 PM EST Office Visit Cardiology at [address] [address] Milagros Hernandez MD [facility] [place] [address] Scheduled Procedures Name Priority Associated Diagnoses Date/Ti me EGD, UPPER GI ENDOSCOPY (WRV U 2.09) Peptic stricture of esophagus documented as of this encounter Visit Diagnoses Not on filedocumented in this encounter Care Teams Caser Relationship Specialty Start Date End Date Ana Gillespie APRN [address] [place] [address] PCP - General Family Medicine 02/03/19 documented as of this encounter
--- OUTSIDE RECORDS SUMMARY | 2024-05-19 20:29 | XMS_ITS | Encounter Summary ---
Author Organization [facility] [place] [address] Care Team Providers Care Scientific Informatics Analyst Name Role Phone Ana Gillespie VAUGHN Primary Care Provider [phone] Encounter Details Date Type Department Care Team (Late st Contact Info) Description 09/29/2022 Telephone [place] [address] Elsie Erickson APRN [facility] [place] [address] Social History Tobacco Use Types Packs/Day Years [...] 1:10 PM EST App[place] [address] Gavin Carrillo MD [facility] [place] [address] 06/05/2024 1:20 PM EST Office Visit Cardiology at [address] [address] Milagros Hernandez MD [facility] [place] [address] Scheduled Procedures Name Priority Associated Diagnoses Date/Ti me EGD, UPPER GI ENDOSCOPY (WRV U 2.09) Peptic stricture of esophagus documented as of this encounter Visit Diagnoses Not on filedocumented in this encounter Care Teams Scientific Informatics Analyst Relationship Specialty Start Date End Date Ana Gillespie APRN [address] [place] [address] PCP - General Family Medicine 02/03/19 documented as of this encounter
--- OUTSIDE RECORDS SUMMARY | 2024-05-19 20:29 | XMS_ITS | Encounter Summary ---
Author Organization [facility] Address [facility] [place] [address] Care Team Providers Care Passenger Service Agent Name Role Phone Ana Gillespie APRN Primary Care Provider [phone] Reason for Visit * Reason Onset Date Comments Disability Paperwork 10/09/2022 Completed [facility] Medicaid Intake Interview with Jennifer over the phone with Nery Potter from [place] [facility] Encounter Details Date Type Department Care Team (Late st Contact Info) Description 10/09/2022 [place] [address] Alicia Gillis Disability Paperwork (Completed Supervisor [facility] Medicaid Intake Interview with Jennifer over the phone with Nery Potter from [place] [facility] ) Social History [...] 05/26/2024 1:10 PM [place] [address] Gavin Carrillo MD [facility] [place] [address] 06/05/2024 1:20 PM EST Office Visit Cardiology at [address] [address] Milagros Hernandez MD [facility] [place] [address] Scheduled Procedures Name Priority Associated Diagnoses Date/Ti me EGD, UPPER GI ENDOSCOPY (WRV U 2.09) Peptic stricture of esophagus documented as of this encounter Visit Diagnoses Not on filedocumented in this encounter Care Teams Passenger Service Agent Relationship Specialty Start Date End Date Ana Gillespie APRN [address] [place] [address] PCP - General Family Medicine 02/03/19 documented as of this encounter
--- OUTSIDE RECORDS SUMMARY | 2024-05-19 20:29 | XMS_ITS | Encounter Summary ---
Author Organization [facility] Address [facility] [place] [address] Care Team Providers Care Land Surveyor Name Role Phone Ana Gillespie APRN Primary Care Provider [phone] Encounter Details Date Type Department Care Team (Late st Contact Info) Description 11/18/2022 Orders Only Endocrinology at [place] [phone] Dixie Tadeo MD [facility] [place] [address] Social History Tobacco Use Types Packs/Day Years [...] 05/26/2024 1:10 PM EST Appoint[place] [address] Gavin Carrillo MD [facility] INTERVENTION[place] [address] 06/05/2024 1:20 PM EST Office Visit Cardiology at [address] [address] Milagros Hernandez MD [facility] [address] Scheduled Procedures Name Priority Associated Diagnoses Date/Ti me EGD, UPPER GI ENDOSCOPY (WRV U 2.09) Peptic stricture of esophagus documented as of this encounter Visit Diagnoses Not on filedocumented in this encounter Care Teams Land Surveyor Relationship Specialty Start Date End Date Ana Gillespie APRN [address] [place] [address] PCP - General Family Medicine 02/03/19 documented as of this encounter
--- OUTSIDE RECORDS SUMMARY | 2024-05-19 20:29 | XMS_ITS | Encounter Summary ---
Author Organization [facility] [place] [address] Care Team Providers Care Dental Technician Instructor Name Role Phone Ana Gillespie APRN Primary Care Provider [phone] Encounter Details Date Type Department Care Team (Late st Contact Info) Description 12/08/2022 Telephone [place] [phone] Alyce Vogt RN Social History Tobacco Use [...] 12/08/2022 1:08 PM EDT Copied from CRM #[id number]. Topic: Specialty Dept CRMs - Generic Call [...] 05/26/2024 1:10 PM EST Appointment Radiology at [place] [phone] Gavin Carrillo MD [facility] [place] [address] 06/05/2024 1:20 PM EST Office Visit Cardiology at [place] [phone] Milagros Hernandez MD [facility] [place] [address] Scheduled Procedures Name Priority Associated Diagnoses Date/Ti me EGD, UPPER GI ENDOSCOPY (WRV U 2.09) Peptic stricture of esophagus documented as of this encounter Visit Diagnoses Not on filedocumented in this encounter Care Teams Dental Technician Instructor Relationship Specialty Start Date End Date Ana Gillespie APRN [address] [place] [address] PCP - General Family Medicine 02/03/19 documented as of this encounter
--- OUTSIDE RECORDS SUMMARY | 2024-05-19 20:29 | XMS_ITS | Encounter Summary ---
Author Organization [facility] [place] [address] Care Team Providers Care Books Salesperson Name Role Phone Ana Gillespie VAUGHN Primary Care Provider [phone] Encounter Details Date Type Department Care Team (Latest Contact Info) Description 10/16/2022 Unscheduled Encounter Endocrinology at [facility] [place] [phone] Elsie Erickson APRN [facility] [place] [address] Type 2 diabetes mellitus with hyperglycemia, with [...] 05/26/2024 1:10 PM EST Appointment [place] [address] Gavin Carrillo MD [facility] DR [place]VENT[place] [address] 06/05/2024 1:20 PM EST Office Visit Cardiology at [address] [address] Milagros Hernandez MD [facility] [place] [address] Scheduled Procedures Name Priority Associated Diagnoses Date/Ti me EGD, UPPER GI ENDOSCOPY (WRV U 2.09) Peptic stricture of esophagus documented as of this encounter Visit Diagnoses Diagnosis Type 2 diabetes mellitus with hyperglycemia, with long-term current use of insulin documented in this encounter Care Teams Books Salesperson Relationship Specialty Start Date End Date Ana Gillespie APRN [address] [place] [address] PCP - General Family Medicine 02/03/19 documented as of this encounter
--- OUTSIDE RECORDS SUMMARY | 2024-05-19 20:29 | XMS_ITS | Encounter Summary ---
Author Organization [facility] [place] [address] Care Team Providers Care Slot Host Name Role Phone Ana Gillespie VAUGHN Primary Care Provider [phone] Reason for Visit * Reason Onset Date Comments Medication Refill 11/13/2022 Encounter Details Date Type Department Care Team (Late st Contact Info) Description 11/13/2022 Refill [place] [address] Alyce Vogt RN Social History [...] 1:10 PM EST Appointment [place] [address] Gavin Carrillo MD [facility] [place] [address] 06/05/2024 1:20 PM EST Office Visit Cardiology at [address] [address] Milagros Hernandez MD [facility] [place] [address] Scheduled Procedures Name Priority Associated Diagnoses Date/Ti me EGD, UPPER GI ENDOSCOPY (WRV U 2.09) Peptic stricture of esophagus documented as of this encounter Visit Diagnoses Not on filedocumented in this encounter Care Teams Slot Host Relationship Specialty Start Date End Date Ana Gillespie APRN [address] [place] [address] PCP - General Family Medicine 02/03/19 documented as of this encounter
--- OUTSIDE RECORDS SUMMARY | 2024-05-19 20:29 | XMS_ITS | Encounter Summary ---
Author Organization [facility] [place] [address] Care Team Providers Care Combo Welder Name Role Phone Ana Gillespie VAUGHN Primary Care Provider [phone] Reason for Visit * Reason Onset Date Comments Diabetes 09/30/2022 Encounter Details Date Type Department Care Team (Late st Contact Info) Description 09/30/2022 Telephone [place] [phone] Elsie Erickson APRN [facility] [place] [address] Diabetes Social History Tobacco Use Types Packs/Day [...] 05/26/2024 1:10 PM EST App[place] [phone] Gavin Carrillo MD [facility] INTERVENTION[place] [address] 06/05/2024 1:20 PM EST Office Visit Cardiology at [address] [address] Milagros Hernandez MD [facility] [place] [address] Scheduled Procedures Name Priority Associated Diagnoses Date/Ti me EGD, UPPER GI ENDOSCOPY (WRV U 2.09) Peptic stricture of esophagus documented as of this encounter Visit Diagnoses Not on filedocumented in this encounter Care Teams Combo Welder Relationship Specialty Start Date End Date Ana Gillespie APRN [address] [place] [address] PCP - General Family Medicine 02/03/19 documented as of this encounter
--- OUTSIDE RECORDS SUMMARY | 2024-05-19 20:29 | XMS_ITS | Encounter Summary ---
Author Organization [facility] [place] [address] Care Team Providers Care Facility Service Manager Name Role Phone Jose MiguelAna VAUGHN Primary Care Provider [phone] Reason for Visit * Reason Onset Date Comments Diabetes 09/30/2022 Encounter Details Date Type Department Care Team (Late st Contact Info) Description 09/30/2022 Telephone [place] [address] Elsie Erickson SUPERVISOR VEGETABLE FARMING [facility] [place] [place] [address] Diabetes Social History Tobacco Use Types Packs/Day [...] 05/26/2024 1:10 PM EST [place] [address] Gavin Carrillo MD [facility] [place] [address] 06/05/2024 1:20 PM EST Office Visit Cardiology at [address] [phone] Milagros Hernandez MD [facility] [place] [address] Scheduled Procedures Name Priority Associated Diagnoses Date/Ti me EGD, UPPER GI ENDOSCOPY (WRV U 2.09) Peptic stricture of esophagus documented as of this encounter Visit Diagnoses Not on filedocumented in this encounter Care Teams Facility Service Manager Relationship Specialty Start Date End Date Ana Gillespie APRN [address] [place] [address] PCP - General Family Medicine 02/03/19 documented as of this encounter
--- OUTSIDE RECORDS SUMMARY | 2024-05-19 20:29 | XMS_ITS | Encounter Summary ---
Author Organization [facility] Address [facility] [place] [address] Care Team Providers Care Chisel Trimmer Name Role Phone Ana Gillespie APRN Primary Care Provider [phone] Reason for Visit * Reason Onset Date Comments Medication Refill 10/22/2022 Encounter Details Date Type Department Care Team (Late st Contact Info) Description 10/22/2022 [place] [phone] David Dejesus MD [facility] [place] [address] Social History Tobacco Use Types Packs/Day Years [...] 05/26/2024 1:10 PM [place] [address] Gavin Carrillo MD [facility] [place] [address] 06/05/2024 1:20 PM EST Office Visit Cardiology at [address] [phone] Milagros Hernandez MD [facility] [place] [place] [address] Scheduled Procedures Name Priority Associated Diagnoses Date/Ti me EGD, UPPER GI ENDOSCOPY (WRV U 2.09) Peptic stricture of esophagus documented as of this encounter Visit Diagnoses Not on filedocumented in this encounter Care Teams Chisel Trimmer Relationship Specialty Start Date End Date Ana Gillespie APRN [address] [place] [address] PCP - General Family Medicine 02/03/19 documented as of this encounter
--- OUTSIDE RECORDS SUMMARY | 2024-05-19 20:29 | XMS_ITS | Encounter Summary ---
Author Organization [facility] [place] [address] Care Team Providers Care Marine Fitter Name Role Phone Ana Gillespie VAUGHN Primary Care Provider [phone] Encounter Details Date Type Department Care Team (Late st Contact Info) Description 10/29/2022 Telephone [place] [phone] Elsie Erickson APRN [facility] [place] [address] Social History Tobacco Use Types Packs/Day Years [...] 05/26/2024 1:10 PM EST Appointment [place] [address] Gavin Carrillo MD [facility] [place] [address] 06/05/2024 1:20 PM EST Office Visit Cardiology at [address] [address] Milagros Hernandez MD [facility] [place] [address] Scheduled Procedures Name Priority Associated Diagnoses Date/Ti me EGD, UPPER GI ENDOSCOPY (WRV U 2.09) Peptic stricture of esophagus documented as of this encounter Visit Diagnoses Not on filedocumented in this encounter Care Teams Marine Fitter Relationship Specialty Start Date End Date Ana Gillespie APRN [address] [place] [address] PCP - General Family Medicine 02/03/19 documented as of this encounter
--- OUTSIDE RECORDS SUMMARY | 2024-05-19 20:29 | XMS_ITS | Encounter Summary ---
Author Organization [facility] Address [facility] [place] [address] Care Team Providers Care Windows Support Engineer Name Role Phone Ana Gillespie APRN Primary Care Provider [phone] Encounter Details Date Type Department Care Team (Late st Contact Info) Description 11/12/2022 11:30 AM EDT Office [place] [phone] Dixie Tadeo MD [facility] [place] [address] Type 2 diabetes mellitus with diabetic polyneuropathy, [...] mg 250mg x4 per TF can [] 5579-8493 mg [] 6748-3097 mg [] Above 1500 mg Medications: Current [...] glucose meter kit. 1 each 0 Insulin Downing, Disposable, (BD INSULIN PEN NEEDLE UF MINI) [...] 30 ng/ml and above. Was started on [id number] U Q weekly when inpatient. C. Will order BMD by DXA now, will be done at [facility] D. If 25 Vit D at [...] 05/26/2024 1:10 PM [place] [address] Gavin Carrillo MD [facility] DR INTERVENTIONAL [place] [address] 06/05/2024 1:20 PM EST Office Visit Cardiology at [address] [address] Milagros Hernandez MD [facility] [place] [address] Scheduled Procedures Name Priority Associated Diagnoses Date/Ti me EGD, UPPER GI ENDOSCOPY (WRV U 2.09) Peptic stricture of esophagus documented as of this encounter Visit Diagnoses Diagnosis Type 2 diabetes mellitus with diabetic polyneuropathy, with long-term current use of insulin Osteoporosis, unspecified osteoporosis type, unspecified pathological fracture presence documented in this encounter Care Teams Windows Support Engineer Relationship Specialty Start Date End Date Ana Gillespie APRN [address] [place] [address] PCP - General Family Medicine 02/03/19 documented as of this encounter
--- OUTSIDE RECORDS SUMMARY | 2024-05-19 20:29 | XMS_ITS | Encounter Summary ---
Author Organization [facility] Address [facility] [place] [address] Care Team Providers Care Microbiology Soil Scientist Name Role Phone Ana Gillespie APRN Primary Care Provider [phone] Encounter Details Date Type Department Care Team (Late st Contact Info) Description 11/23/2022 [place] [phone] Fannie Conde PA [facility] [address] [place] [address] Social History Tobacco Use Types Packs/Day Years [...] 05/26/2024 1:10 PM [place] [address] Gavin Carrillo MD [facility] [address] [place] [address] 06/05/2024 1:20 PM EST Office Visit Cardiology at [address] [address] Milagros Hernandez MD [facility] [place] [place] [address] Scheduled Procedures Name Priority Associated Diagnoses Date/Ti me EGD, UPPER GI ENDOSCOPY (WRV U 2.09) Peptic stricture of esophagus documented as of this encounter Visit Diagnoses Diagnosis Neuroleptic-induced parkinsonism Secondary Parkinsonism documented in this encounter Care Teams Microbiology Soil Scientist Relationship Specialty Start Date End Date Ana Gillespie APRN [address] [place] [address] PCP - General Family Medicine 02/03/19 documented as of this encounter
--- OUTSIDE RECORDS SUMMARY | 2024-05-19 20:29 | XMS_ITS | Encounter Summary ---
Author Organization [facility] Address [facility] [place] [address] Care Team Providers Care Home Appliance Tech Name Role Phone Ana Gillespie VAUGHN Primary Care Provider [phone] Reason for Visit * Reason Onset Date [...] Contact Info) Description 12/08/2022 Telephone [place] [phone] Elsie Erickson APRN [facility] [place] [address] Medication Refill (Jennifer is out of her [...] 05/26/2024 1:10 PM EST Appointment [place] [phone] Gavin Carrillo MD [facility] [place] [address] 06/05/2024 1:20 PM EST Office Visit Cardiology at [address] [address] Milagros Hernandez MD [facility] [place] [address] Scheduled Procedures Name Priority Associated Diagnoses Date/Ti me EGD, UPPER GI ENDOSCOPY (WRV U 2.09) Peptic stricture of esophagus documented as of this encounter Visit Diagnoses Not on filedocumented in this encounter Care Teams Home Appliance Tech Relationship Specialty Start Date End Date Ana Gillespie APRN [address] [place] [address] PCP - General Family Medicine 02/03/19 documented as of this encounter
--- OUTSIDE RECORDS SUMMARY | 2024-05-19 20:29 | XMS_ITS | Encounter Summary ---
Author Organization [facility] Address [facility] [place] [address] Care Team Providers Care Walking Dragline Operator Name Role Phone Ana Gillespie APRN Primary Care Provider Encounter Details Date Type Department Care Team (Late st Contact Info) Description 11/23/2022 Notes Only Radiology at [facility] [place] [address] Hang Cooper PA [facility] [place] [address] Social History Tobacco Use Types Packs/Day Years [...] mg by mouth daily. Blood Sugar Diagnostic ([employer] ULTRA TEST) Strip 1 each by [...] glucose meter kit. 1 each 0 Insulin Henderson, Disposable, (BD INSULIN PEN NEEDLE UF MINI) [...] G-Tube Placement 09/11/2022 Moustapha Hart MD [facility] INTERVENTIONL RAD IR SUTURE RELEASE 09/25/2022 IR Suture Release 09/25/2022 Yoselin Ghosh PA [facility] INTERVENTIONL RAD PERCUTANEOUS GASTROSTOMY N/A 09/11/2022 PERCUTANEOUS GASTROSTOMY performed by Aiden Flores MD at [facility] CATY PRO COLONOSCOPY, BIOPSY N/A 03/20/2016 COLONOSCOPY FLEXIBLE, WITH BX performed by David Dejesus MD at [facility] ENDOSCOPY PRO COLONOSCOPY, DIAGNOSTIC N/A 03/01/2020 COLONOSCOPY, DIAGNOSTIC performed by David Dejesus MD at [facility] ENDOSCOPY PRO ENDOSCOPIC US EXAM, ESOPH N/A 03/31/2022 UPPER EUS- ENDOSCOPIC ULTRASOUND performed by David Dejesus MD at [facility] ENDOSCOPY PRO UPPER GI ENDOSCOPY, BIOPSY N/A 04/03/2014 UPPER GASTROINTESTINAL ENDOSCOPY,WITH BIOPSY SINGLE OR MULTIPLE performed by David Dejesus MDat [facility] ENDOSCOPY PRO UPPER GI ENDOSCOPY, BIOPSY N/A 03/20/2016 EGD WITH BIOPSY performed by David Dejesus MD at [facility] ENDOSCOPY PRO UPPER GI ENDOSCOPY, BIOPSY N/A 11/22/2018 EGD WITH BIOPSY (WRVU 2.49) performed by David Dejesus MD at [facility] ENDOSCOPY PRO UPPER GI ENDOSCOPY, BIOPSY N/A 03/01/2020 UPPER GASTROINTESTINAL ENDOSCOPY,WITH BIOPSY SINGLE OR MULTIPLE (WRVU 2.49) performed by David Dejesus MD at [facility] ENDOSCOPY PRO UPPER GI ENDOSCOPY, BIOPSY N/A 09/23/2021 EGD WITH BIOPSY (WRVU 2.49) performed by David Dejesus MD at [facility] ENDOSCOPY PRO UPPER GI ENDOSCOPY, BIOPSY N/A 03/31/2022 EGD WITH BIOPSY (WRVU 2.49) performed by David Dejesus MD at [facility] ENDOSCOPY PRO UPPER GI ENDOSCOPY, BIOPSY N/A 07/03/2022 EGD WITH BIOPSY (WRVU 2.49) performed by David Dejesus MD at [facility] ENDOSCOPY PRO UPPER GI ENDOSCOPY, DIAGNOSTIC N/A 04/03/2014 EGD, UPPER GI ENDOSCOPY performed by David Dejesus MD at [facility] ENDOSCOPY PRO UPPER GI ENDOSCOPY, DIAGNOSTIC N/A 03/01/2020 EGD, UPPER GI ENDOSCOPY performed by David Dejesus MD at [facility] ENDOSCOPY PRO UPPER GI ENDOSCOPY, DIAGNOSTIC N/A 09/09/2022 EGD, UPPER GI ENDOSCOPY (WRVU 2.09) performed by Ayo Russ MD at [facility] MAIN OR Social history and habits: [...] radiology the day of procedure) 11/23/2022 ROSLYN Adikns documented in this encounter Plan of Treatment Upcoming Encounters Date Type Department Care Team (Late st Contact Info) Description 05/26/2024 1:10 PM [place] [address] Gavin Carrillo MD [facility] INTERVENTIONAL RADIOLOGY [place], [place] [id number] 06/05/2024 1:20 PM EST Office Visit Cardiology at [address] [address] Milagros Hernandez MD [facility] [place] [address] Scheduled Procedures Name Priority Associated Diagnoses Date/Ti me EGD, UPPER GI ENDOSCOPY (WRV U 2.09) Peptic stricture of esophagus documented as of this encounter Visit Diagnoses Not on filedocumented in this encounter Care Teams Walking Dragline Operator Relationship Specialty Start Date End Date Ana Gillespie APRN [address] [place] [address] PCP - General Family Medicine 02/03/19 documented as of this encounter
--- OUTSIDE RECORDS SUMMARY | 2024-05-19 20:29 | XMS_ITS | Encounter Summary ---
Author Organization [facility] Address [facility] Marly petersen [place] [id number] Care Team Providers Care Firmware Developer Name Role Phone Ana Gillespie APRN Primary Care Provider [phone] Encounter Details Date Type Department Care Team [...] 05/26/2024 1:10 PM EST Appointment Radiology at [place] [phone] Gavin Carrillo MD [facility] [place] [address] 06/05/2024 1:20 PM EST Office Visit Cardiology at [address] [address] Milagros Hernandez MD [facility] [place] [address] Scheduled Procedures Name Priority Associated Diagnoses Date/Ti me EGD, UPPER GI ENDOSCOPY (WRV U 2.09) Peptic stricture of esophagus documented as of this encounter Visit Diagnoses Not on filedocumented in this encounter Care Teams Firmware Developer Relationship Specialty Start Date End Date Ana Gillespie APRN [address] [place] [address] PCP - General Family Medicine 02/03/19 documented as of this encounter
--- OUTSIDE RECORDS SUMMARY | 2024-05-19 20:29 | XMS_ITS | Encounter Summary ---
Author Organization [facility] [place] [address] Care Team Providers Care Uniform Room Attendant Name Role Phone Ana Gillespie VAUGHN Primary Care Provider [phone] Encounter Details Date Type Department Care Team (Late st Contact Info) Description 12/10/[address] [facility] [place] [address] Jessica Beckman Social History Tobacco Use Types [...] - 12/10/2022 10:00 AM EDT Jennifer Irving [phone] Diagnosis/Indication: Dysphagia, Follow-up of Farrell's esophagus Please [...] Upper Endoscopy before? Yes: Date 09/10/22 [facility] If yes, did you have any problems [...] your procedure. Who will likely be your transfer driver for the procedure? *Please Verify the [...] 05/26/2024 1:10 PM [place] [address] Gavin Carrillo MD [facility] INTER[place] [address] 06/05/2024 1:20 PM EST Office Visit Cardiology at [address] [phone] Milagros Hernandez MD [facility] [place] [address] Scheduled Procedures Name Priority Associated Diagnoses Date/Ti me EGD, UPPER GI ENDOSCOPY (WRV U 2.09) Peptic stricture of esophagus documented as of this encounter Visit Diagnoses Not on filedocumented in this encounter Care Teams Uniform Room Attendant Relationship Specialty Start Date End Date Ana Gillespie APRN [address] [place] [address] PCP - General Family Medicine 02/03/19 documented as of this encounter
--- OUTSIDE RECORDS SUMMARY | 2024-05-19 20:29 | XMS_ITS | Encounter Summary ---
Author Organization [facility] [place] [address] Care Team Providers Care Serologist Name Role Phone Ana Gillespie VAUGHN Primary Care Provider [phone] Encounter Details Date Type Department Care Team (Late st Contact Info) Description 11/13/2022 Telephone [place] [phone] Alyce Vogt RN Social History Tobacco Use [...] 05/26/2024 1:10 PM EST Appointment [place] [phone] Gavin Carrillo MD [facility] [place] [address] 06/05/2024 1:20 PM EST Office Visit Cardiology at [address] [address] Milagros Hernandez MD [facility] [address] Scheduled Procedures Name Priority Associated Diagnoses Date/Ti me EGD, UPPER GI ENDOSCOPY (WRV U 2.09) Peptic stricture of esophagus documented as of this encounter Visit Diagnoses Not on filedocumented in this encounter Care Teams Serologist Relationship Specialty Start Date End Date Ana Gillespie APRN [address] [place] [address] PCP - General Family Medicine 02/03/19 documented as of this encounter
--- OUTSIDE RECORDS SUMMARY | 2024-05-19 20:29 | XMS_ITS | Encounter Summary ---
[place] [address] Care Team Providers Care Wharf Labourer Name Role Phone Ana Gillespie APRN Primary Care Provider [phone] Reason for Referral * Consultation (Urgent) - Closed Specialty Diagnoses / Procedures Referred By Contac t Referred To Contact Cardiology Diagnoses Cardiac LV ejection fraction 30-35% Ana Gillespie APRN [address] [place] [address] [facility] Cardiology [address] [place] [phone] Referral ID Status Reason Start Date Expiration Date V isits Requested Visits Authorized [id number] Closed Consult, Test & Treat PCP Updated and/or Approved 11/23/2022 11/23/2023 12 12 Encounter Details Date Type Department Care Team (Latest Contact Info) Description 11/23/2022 Transcribe Orders eDH Incoming Referrals [phone] Ana Gillespie APRN [address] [place] [address] Cardiac LV ejection fraction 30-35% Social History [...] 05/26/2024 1:10 PM EST Appointment [place] [address] Gavin Carrillo MD [facility] [place] [address] 06/05/2024 1:20 PM EST Office Visit Cardiology at [address] [phone] Milagros Hernandez MD [facility] [place] [place] [address] Scheduled Procedures Name Priority Associated Diagnoses Date/Ti [...] system documented in this encounter Care Teams Wharf Labourer Relationship Specialty Start Date End Date Ana Gillespie APRN [address] [place] [address] PCP - General Family Medicine 02/03/19 documented as of this encounter
--- OUTSIDE RECORDS SUMMARY | 2024-05-19 20:29 | XMS_ITS | Encounter Summary ---
Author Organization [facility] Address [facility] [place] [address] Care Team Providers Care Dishwasher Preparer Name Role Phone Jose MiguelAna VAUGHN Primary Care Provider [phone] Encounter Details Date Type Department Care Team (Late st Contact Info) Description 10/06/2022 Telephone [place] [phone] Elsie Erickson APRN [facility] [place] [address] Social History Tobacco Use Types Packs/Day Years [...] not had tube feeds since last week, [facility] having computer system issues so unable to ship supplies. Campos has been using Ensure boluses 2 x daily as he was directed. He has not noted elevation of her blood sugars with this. BGs in 120s-140s. [facility] TF once he has this back. He has no questions and we will check back in the next few days. documented in this encounter Plan of Treatment Upcoming Encounters Date Type Department Care Team (Late st Contact Info) Description 05/26/2024 1:10 PM EST Appointment [place] [address] Gavin Carrillo MD [facility] INTERVENTION[place] [address] 06/05/2024 1:20 PM EST Office Visit Cardiology at [address] [phone] Milagros Hernandez MD [facility] [place] [address] Scheduled Procedures Name Priority Associated Diagnoses Date/Ti me EGD, UPPER GI ENDOSCOPY (WRV U 2.09) Peptic stricture of esophagus documented as of this encounter Visit Diagnoses Not on filedocumented in this encounter Care Teams Dishwasher Preparer Relationship Specialty Start Date End Date Ana Gillespie APRN [address] [address] PCP - General Family Medicine 02/03/19 documented as of this encounter
--- OUTSIDE RECORDS SUMMARY | 2024-05-19 20:29 | XMS_ITS | Encounter Summary ---
Author Organization [facility] [place] [address] Care Team Providers Care Coding Assistant Name Role Phone Ana Gillespie VAUGHN Primary Care Provider [phone] Reason for Visit * Reason Onset Date Comments Medication Refill 11/19/2022 Encounter Details Date Type Department Care Team (Late st Contact Info) Description 11/19/2022 [place] [address] Alyce Vogt RN Social History [...] 05/26/2024 1:10 PM [place] [address] Gavin Carrillo MD [facility] [place] [address] 06/05/2024 1:20 PM EST Office Visit Cardiology at [address] [phone] Milagros Hernandez MD [facility] [place] [address] Scheduled Procedures Name Priority Associated Diagnoses Date/Ti me EGD, UPPER GI ENDOSCOPY (WRV U 2.09) Peptic stricture of esophagus documented as of this encounter Visit Diagnoses Not on filedocumented in this encounter Care Teams Coding Assistant Relationship Specialty Start Date End Date Ana Gillespie APRN [address] [place] [address] PCP - General Family Medicine 02/03/19 documented as of this encounter
--- OUTSIDE RECORDS SUMMARY | 2024-05-19 20:29 | XMS_ITS | Encounter Summary ---
[place] [address] Care Team Providers Care Tester Equipment Name Role Phone Ana Gillespie VAUGHN Primary Care Provider Reason for Referral * Diagnostic Test (Routine) - Closed Specialty Diagnoses / Procedures Referred By Esperanza rodríguez Referred To Contact Radiology Diagnoses Gastrostomy tube in place Procedures IR Suture Release Moustapha Hart MD [facility] [place] [address] [place] [address] Referral ID Status Reason Start Date Expiration Date V isits Requested Visits Authorized [id number] Closed Specialty Service Requested 09/11/2022 03/14/2024 1 1 Reason for Visit * Auth/Cert (Routine) Specialty Diagnoses / Procedures Referred By Esperanza rodríguez Referred To Contact Diagnoses Shock CARDIOGENIC PULMONARY EDEMA Procedures ER Carlos Melton MD [facility] [place] [address] [facility] Referral ID Status Reason Start Date Expiration Date Visits Re quested Visits Authorized [id number] 1 1 Encounter Details Date Type Department Care Team (Latest Contact Info) Description 09/25/2022 9:00 AM EDT - 09/25/2022 11:59 PM EDT Hospital [place] [address] Discharge [...] 180 tablet 3 10/20/2021 Blood Sugar Diagnostic ([employer] Robotics[employer] ULTRA TEST) StripIndications:Typ e 2 diabetes mellitus, [...] meter kit. 1 each 0 12/14/2014 Insulin Wilburn, Disposable, (BD INSULIN PEN NEEDLE UF MINI) [...] to AVS in admission encounter and below. [facility] INTERVENTIONAL RADIOLOGY NURSES NOTE FOR GASTROPEXY [...] is during regular office hours, please call [phone]. If it is after regular office hours, or on weekends or holidays, please call [phone] and ask to speak to the Video Producer white metal corrosion proofer for Interventional Radiology. Revised 02/23/19 documented in this encounter Plan of Treatment Upcoming Encounters Date Type Department Care Team (Late st Contact Info) Description 05/26/2024 1:10 PM EST [place] [address] Gavin Carrillo MD [facility] DR [place] [address] 06/05/2024 1:20 PM EST Office Visit Cardiology at [address] [address] Milagros Hernandez MD [facility] [place] [address] Scheduled Procedures Name Priority Associated Diagnoses Date/Ti me EGD, UPPER GI ENDOSCOPY (WRV U 2.09) Peptic stricture of esophagus documented as of this encounter Procedures Procedure Name Priority Date/Time Associated Diagnosis Comments IR SUTURE RELEASE Routine 09/25/2022 9:5 6 AM EDT Gastrostomy tube in place documented in this encounter Results * IR Suture Release (09/25/2022 9:56 AM EDT) Narrative [facility] - 09/25/2022 10:16 AM EDT This exam is auto-finalizing. No interpretation was done. Moustapha Hart MD IMG IR ORDERABLES Performing Organization Address City/State/[facility] Co de Phone Number [place], [place] documented in this encounter Visit Diagnoses Diagnosis Gastrostomy tube in place documented in this encounter Care Teams Tester Equipment Relationship Specialty Start Date End Date Ana Gillespie APRN [address] [place] [address] PCP - General Family Medicine 02/03/19 documented as of this encounter
--- OUTSIDE RECORDS SUMMARY | 2024-05-19 20:34 | XMS_ITS | Encounter Summary ---
[place] [address] Care Team Providers Care Health Care Recruiter Name Role Phone Ana Gillespie VAUGHN Primary Care Provider [phone] Reason for Visit * Auth/Cert (Routine) Specialty Diagnoses / Procedures Referred By Esperanza t Referred To Contact Diagnoses Shock CARDIOGENIC PULMONARY EDEMA Procedures ER CLAUDIOI Carlos Terry MD [facility] [place] [address] [facility] Referral ID Status Reason Start Date Expiration Date Visits Re quested Visits Authorized [id number] 1 1 Encounter Details Date Type Department Care Team (Late st Contact Info) Description 09/09/2022 11:32 PM EDT Anesthesia Event [place] [address] Chon Moctezuma MD [facility] [place] [address] Darin Chaves MD [facility] [place] [address] Anesthesia Record Procedure Summary Procedure Name Responsible [...] side of arm), right; pressure injectable catheter ([id number]); 5 Fr; 0 cm; 33 cm; 33 [...] Procedure Summary Date: 09/09/22 Room / Location: [place] [address] [facility] MAIN OR Anesthesia Start: 2331 Anesthesia Stop: Procedure: EGD, UPPER GI ENDOSCOPY (WRVU 2.09) Diagnosis: (failed MBS with 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 Level of Consciousness: Conscious but Sleepy [...] BX performed by David Dejesus MD at [facility] ENDOSCOPY ??? PRO COLONOSCOPY, DIAGNOSTIC N/A 03/01/2020 COLONOSCOPY, DIAGNOSTIC performed by David Dejesus MD at [facility] ENDOSCOPY ??? PRO ENDOSCOPIC US EXAM, ESOPH N/A 03/31/2022 UPPER EUS- ENDOSCOPIC ULTRASOUND performed by David Dejesus MD at [facility] ENDOSCOPY ??? PRO UPPER GI ENDOSCOPY, BIOPSY N/A 04/03/2014 UPPER GASTROINTESTINAL ENDOSCOPY,WITH BIOPSY SINGLE OR MULTIPLE performed by David Dejesus MDat [facility] ENDOSCOPY ??? PRO UPPER GI ENDOSCOPY, BIOPSY N/A 03/20/2016 EGD WITH BIOPSY performed by David Dejesus MD at [facility] ENDOSCOPY ??? PRO UPPER GI ENDOSCOPY, BIOPSY N/A 11/22/2018 EGD WITH BIOPSY (WRVU 2.49) performed by David Dejesus MD at [facility] ENDOSCOPY ??? PRO UPPER GI ENDOSCOPY, BIOPSY N/A 03/01/2020 UPPER GASTROINTESTINAL ENDOSCOPY,WITH BIOPSY SINGLE OR MULTIPLE (WRVU 2.49) performed by David Dejesus MD at [facility] ENDOSCOPY ??? PRO UPPER GI ENDOSCOPY, BIOPSY N/A 09/23/2021 EGD WITH BIOPSY (WRVU 2.49) performed by David Dejesus MD at [facility] ENDOSCOPY ??? PRO UPPER GI ENDOSCOPY, BIOPSY N/A 03/31/2022 EGD WITH BIOPSY (WRVU 2.49) performed by David Dejesus MD at [facility] ENDOSCOPY ??? PRO UPPER GI ENDOSCOPY, BIOPSY N/A 07/03/2022 EGD WITH BIOPSY (WRVU 2.49) performed by David Dejesus MD at [facility] ENDOSCOPY ??? PRO UPPER GI ENDOSCOPY, DIAGNOSTIC N/A 04/03/2014 EGD, UPPER GI ENDOSCOPY performed by David Dejesus MD at [facility] ENDOSCOPY ??? PRO UPPER GI ENDOSCOPY, DIAGNOSTIC N/A 03/01/2020 EGD, UPPER GI ENDOSCOPY performed by David Dejesus MD at [facility] ENDOSCOPY Social History Tobacco Use [...] 05/26/2024 1:10 PM EST Appointment [place] [address] Gavin Carrillo MD [facility] [place] [address] 06/05/2024 1:20 PM EST Office Visit Cardiology at [address] [address] Milagros Hernandez MD [facility] [place] [address] Scheduled Procedures Name Priority Associated [...] EDT documented in this encounter Care Teams Health Care Recruiter Relationship Specialty Start Date End Date Ana Gillespie APRN [address] [place] [address] PCP - General Family Medicine 02/03/19 documented as of this encounter
--- OUTSIDE RECORDS SUMMARY | 2024-05-19 20:34 | XMS_ITS | Encounter Summary ---
Author Organization [facility] [place] [address] Care Team Providers Care Wig Comber Name Role Phone Ana Gillespie VAUGHN Primary Care Provider [phone] Reason for Visit * Auth/Cert (Routine) Specialty Diagnoses / Procedures Referred By Esperanza rodríguez Referred To Contact Diagnoses Shock CARDIOGENIC PULMONARY EDEMA Procedures ER Carlos Melton MD [facility] [place] [address] [facility] Referral ID Status Reason Start Date Expiration Date Visits Re quested Visits Authorized [id number] 1 1 Encounter Details Date Type Department Care Team (Late st Contact Info) Description 09/11/2022 4:10 PM EDT [place] [phone] Gt Urena MD [facility] [place] [address] Anesthesia Record Procedure Summary Procedure Name Responsible [...] expected post-operative course (including disposition.) Gt Lisa [employer] 1723 Recovery or ICU Handoff Sayra ent [...] side of arm), right; pressure injectable catheter ([id number]); 5 Fr; 0 cm; 33 cm; 33 [...] Date: 09/11/22 Room / Location: [facility] INTERVENTIONAL RADIOLOGY 2 / [facility] Anesthesia Start: 1610 Anesthesia Stop: 1723 Procedure: PERCUTANEOUS GASTROSTOMY Diagnosis: (DYSPHAGIA) Surgeons: Aiden Flores MD Responsible Provider: Gt Urena MD Anesthesia Type: general ASA Status: 3 All Anesthesia Providers: Anesthesiologist: Gt Urena MD [employer]: Jennifer Salomon CRNA; Gt Lisa CRNA Vitals [...] was the same as planned.) Comments: Gt Urean MD * Anesthesia Preprocedure Evaluation - Gt [...] by David Dejesus MD at [facility] ENDOSCOPY ??? PRO COLONOSCOPY, DIAGNOSTIC N/A 03/01/2020 COLONOSCOPY, DIAGNOSTIC performed by David Dejesus MD at [facility] ENDOSCOPY ??? PRO ENDOSCOPIC US EXAM, ESOPH N/A 03/31/2022 UPPER EUS- ENDOSCOPIC ULTRASOUND performed by David Dejesus MD at [facility] ENDOSCOPY ??? PRO UPPER GI ENDOSCOPY, BIOPSY N/A 04/03/2014 UPPER GASTROINTESTINAL ENDOSCOPY,WITH BIOPSY SINGLE OR MULTIPLE performed by David Dejesus MDat [facility] ENDOSCOPY ??? PRO UPPER GI ENDOSCOPY, BIOPSY N/A 03/20/2016 EGD WITH BIOPSY performed by David Dejesus MD at [facility] ENDOSCOPY ??? PRO UPPER GI ENDOSCOPY, BIOPSY N/A 11/22/2018 EGD WITH BIOPSY (WRVU 2.49) performed by David Dejesus MD at [facility] ENDOSCOPY ??? PRO UPPER GI ENDOSCOPY, BIOPSY N/A 03/01/2020 UPPER GASTROINTESTINAL ENDOSCOPY,WITH BIOPSY SINGLE OR MULTIPLE (WRVU 2.49) performed by David Dejesus MD at [facility] ENDOSCOPY ??? PRO UPPER GI ENDOSCOPY, BIOPSY N/A 09/23/2021 EGD WITH BIOPSY (WRVU 2.49) performed by David Dejesus MD at [facility] ENDOSCOPY ??? PRO UPPER GI ENDOSCOPY, BIOPSY N/A 03/31/2022 EGD WITH BIOPSY (WRVU 2.49) performed by David Dejesus MD at [facility] ENDOSCOPY ??? PRO UPPER GI ENDOSCOPY, BIOPSY N/A 07/03/2022 EGD WITH BIOPSY (WRVU 2.49) performed by David Dejesus MD at [facility] ENDOSCOPY ??? PRO UPPER GI ENDOSCOPY, DIAGNOSTIC N/A 04/03/2014 EGD, UPPER GI ENDOSCOPY performed by David Dejesus MD at [facility] ENDOSCOPY ??? PRO UPPER GI ENDOSCOPY, DIAGNOSTIC N/A 03/01/2020 EGD, UPPER GI ENDOSCOPY performed by David Dejesus MD at [facility] ENDOSCOPY ??? PRO UPPER GI ENDOSCOPY, DIAGNOSTIC N/A 09/09/2022 EGD, UPPER GI ENDOSCOPY (WRVU 2.09) performed by Ayo Russ MD at [facility] MAIN OR Social History Tobacco Use [...] risks discussed with patient. Plan discussed with [employer] and attending. Anesthesia Screening documented in this encounter Miscellaneous Notes * Addendum Note - Jennifer Salomon CRNA - 09/21/2022 4:11 PM EDT Addendum created 09/21/22 1611 by Jennifer Salomon CRNA Intraprocedure Meds edited documented in this encounter Plan of Treatment Upcoming Encounters Date Type Department Care Team (Late st Contact Info) Description 05/26/2024 1:10 PM [place] [phone] Gavin Carrillo MD [facility] DR [place] [address] 06/05/2024 1:20 PM EST Office Visit Cardiology at [address] [phone] Milagros Hernandez MD [facility] [place] [place] [address] Scheduled Procedures Name Priority Associated Diagnoses Date/Ti [...] EDT documented in this encounter Care Teams Wig Comber Relationship Specialty Start Date End Date Ana Gillespie APRN [address] [place] [address] PCP - General Family Medicine 02/03/19 documented as of this encounter
--- OUTSIDE RECORDS SUMMARY | 2024-05-19 20:34 | XMS_ITS | Encounter Summary ---
Author Organization [facility] Address [facility] [place] [address] Care Team Providers Care Activated Sludge Attendant Name Role Phone Chris Stanley VAUGHN Primary Care Provider Reason for Referral * Home Health Care (Routine) - Denied Specialty Diagnoses / Procedures Referred By Esperanza rodríguez Referred To Contact Diagnoses Neuroleptic-induced parkinsonism Jose cMleod MD [facility] [place] [address] [address] Referral ID Status Reason Start Date Expiration Date V isits Requested Visits Authorized [id number] Denied Consult, Test & Treat 09/25/2022 09/25/2023 999 0 * Diagnostic Test (Routine) - Closed Specialty Diagnoses / Procedures Referred By Esperanza rodríguez Referred To Contact Radiology Diagnoses Gastrostomy tube in place Procedures IR Suture Release Moustapha Hart MD [facility] [place] [address] [facility] [place] [address] Referral ID Status Reason Start Date Expiration Date V isits Requested Visits Authorized [id number] Closed Specialty Service Requested 09/11/2022 03/14/2024 1 1 * Consultation (Routine) - Canceled Specialty Diagnoses / Procedures Referred By Contac t Referred To Contact Cardiology Diagnoses Stress-induced cardiomyopathy Stress cardiomyopathy. Jigar Streeter MD [facility] GENERAL INTERNAL MEDICINE [place], [place] [id number] [place] [address] Cardiology [address] [place] [id number] Referral ID Status Reason Start Date Expiration Date V isits Requested Visits Authorized [id number] Canceled Consult, Test & Treat 09/25/2022 09/25/2023 1 1 Reason for Visit * Auth/Cert (Routine) Specialty Diagnoses / Procedures Referred By Contac t Referred To Contact Diagnoses Shock CARDIOGENIC PULMONARY EDEMA Procedures ER IPI Carlos Terry MD [facility] [place] [address] [facility] Referral ID Status Reason Start Date Expiration Date Visits Re quested Visits Authorized [id number] 1 1 Encounter Details Date Type Department Care Team (Late st Contact Info) Description 08/14/2022 11:11 PM EDT - 09/25/2022 11:21 AM EDT Hospital Encounter Medical Specialites Unit Level 1 [place] [address] Carlos Terry MD [facility] [place] [address] Milagros Hernandez MD [facility] [place] [address] Roland Pruett MD Liu, Stephen K, MD [facility] [place] [address] Tenisha Sandy MD [facility] [place] [address] [place] [address] [place] [address] [place] [address] [place] [address] Alan Hunt MD Wang, Susan [place], [place] [address] [place] [address] Shock; Closed fracture of neck of left [...] deficiency anemia,??GERD??c/b??esophagitis &??Farrell's esophagus??presenting in transfer from [facility], suspected to be in cardiogenic shock [...] discharge. [facility] #Bipolar Disorder #Hospital Associated Delirium ?? The [...] escalated to 4L NC. On arrival to [facility], the patient was given further doses [...] (80 lasix) & dobutamine withconsequent transfer to [facility]. ?? On arrival, the patient was requiring requiring roughly NE 30, dobutamine 2.5, and epinephrine of 5. Hospital Course: Ishan Irving was admitted to the Cardiology Service on 08/14/2022 and transferred to [facility] on 08/30/2022. The following acute and chronic medical issues were identified during this phase of their hospitalization, and managed as summarized below by problem: #Type II NSTEMI #Mixed cardiogenic and distributive shock #Acute HFrEF 2/2 stress cardiomyopathy Following admission to the [facility], a [place]-Isabelle catheter was placed for monitoring of hemodynamic [...] status, she was extubated to [facility] on 08/23, which she tolerated well. [...] in a dramatic improvement in psychomotor slowing [id number] hours. Her mental status improved significantly over her course and she was discharged fully oriented. She was continued on her home Depakote and Seroquel. #History of Drug-Induced Parkinsonism #Severe Oropharyngeal Dysphagia #Distal Esophageal Dysmotility #GERD complicated by Farrell's Esophagus and Esophagitis Ishan demonstrated severe dysphagia on an MBS obtained by INSTANT POWDER SUPERVISOR after extubation. While it was suspected [...] who have questions please contact the health coronary care unit nurse that requested your imaging first. Abdomen 1 view (Generic) (Exam End: 08/15/2022 8:33 AM) Narrative EXAMINATION: XR ABDOMEN 1 VIEW (GENERIC) CLINICAL HISTORY: 62 yo F w/ shock, confirm NG tube placement TECHNIQUE: Single radiograph of the lower chest and upper abdomen for purposes of enteric tube verification and otherwise nondiagnostic. The lower abdomen is excluded from zxiys-zs-pctd. COMPARISON: Abdominal radiograph 08/15/2022 FINDINGS: * An [...] who have questions please contact the health coronary care unit nurse that requested your imaging first. Chest One View (Exam End: 08/15/2022 1:14 AM) Narrative EXAMINATION: XR CHEST ONE VIEW CLINICAL HISTORY: confirm [place] placement TECHNIQUE: 1 view of the chest [...] who have questions please contact the health coronary care unit nurse that requested your imaging [...] who have questions please contact the health coronary care unit nurse that requested your imaging [...] who have questions please contact the health coronary care unit nurse that requested your imaging first. Head wo Contrast (Generic) (Exam End: 08/16/2022 [...] who have questions please contact the health coronary care unit nurse that requested your imaging first. Electronically signed by: Moustapha Correa MD, [facility] ([phone]), at 08/16/2022 11:19 PM XR Abdomen 1 [...] who have questions please contact the health coronary care unit nurse that requested your imaging [...] who have questions please contact the health coronary care unit nurse that requested your imaging first. Chest One View (Exam End: 08/19/2022 12:30 PM) Narrative EXAMINATION: XR CHEST ONE VIEW CLINICAL HISTORY: febrile, altered, leukocytosis TECHNIQUE: 1 view of the chest ; AP portable 20 degrees upright COMPARISON: Chest radiograph 08/16/2022 FINDINGS: ET tube tip measures 3.0 cm above consuelo. Enteric catheter descends below the diaphragm and below the wdsbw-vv-cyyh. Interval removal of right IJ approach PA [...] who have questions please contact the health coronary care unit nurse that requested your imaging first. Brain wo Contrast (Exam End: 08/19/2022 10:15 [...] who have questions please contact the health coronary care unit nurse that requested your imaging first. Chest for [...] who have questions please contact the health coronary care unit nurse that requested your imaging first. Hip w Contrast Left (Exam End: 08/20/2022 [...] who have questions please contact the health coronary care unit nurse that requested your imaging first. Chest w Contrast (Exam End: 08/20/2022 11:04 [...] the diaphragm with tip not included the aydqs-ij-fkdn. There is some wall thickening of the [...] the duodenum, not fully included in the xgrjx-jg-aezh. Skeletal structures: No acute osseous findings. No [...] who have questions please contact the health coronary care unit nurse that requested your imaging first. Ultrasound in [...] who have questions please contact the health coronary care unit nurse that requested your imaging first. Electronically signed by: Viktor Cervantes MD, [facility] ([phone]), at 08/22/2022 12:43 PM XR Pelvis (Generic) [...] who have questions please contact the health coronary care unit nurse that requested your imaging first. Electronically signed by: Richard Billings MD, [facility] ([phone]), at 08/22/2022 10:[address] Angiogram Coronary [...] who have questions please contact the health coronary care unit nurse that requested your imaging first. Chest wo Contrast (Generic) (Exam End: 08/27/2022 [...] who have questions please contact the health coronary care unit nurse that requested your imaging first. Fluoro Barium [...] who have questions please contact the health coronary care unit nurse that requested your imaging first. Fluoro Barium [...] who have questions please contact the health coronary care unit nurse that requested your imaging first. Abdomen 1 view (Generic) (Exam End: 09/04/2022 [...] who have questions please contact the health coronary care unit nurse that requested your imaging [...] who have questions please contact the health coronary care unit nurse that requested your imaging [...] now extending below the diaphragm and included vsojy-wu-xmry. Similar appearance of mild elevation of the right hemidiaphragm with streaky right basilar opacities and some mild patchy opacities at the left lung base. No new focal airspace opacity. No appreciable pleural fluid collection. No pneumothorax. Cardiomediastinal silhouette is unchanged. No evidence of pulmonary edema. No acute osseous abnormality. Impression 1. Reposition enteric tube now extending below the diaphragm and included ezcwh-nj-wjmv. 2. Similar appearance of elevated right hemidiaphragm and linear/patchy bibasilar opacities which may represent atelectasis or possibly aspiration. Thank you for letting us participate in the care of this patient. If you are a health care provider and have any questions regarding this report, please contact the number below. For patients who have questions please contact the health coronary care unit nurse that requested your imaging first. Abdomen 1 view (Generic) (Exam End: 09/10/2022 [...] who have questions please contact the health coronary care unit nurse that requested your imaging first. G-Tube Placement (Exam End: 09/11/2022 5:19 PM) [...] barrier technique was used throughout. ??A 4 Venezuelan glide catheter??was placed??as a??nasoenteric tube??under fluoroscopy with [...] who have questions please contact the health coronary care unit nurse that requested your imaging [...] Ultra-Fine Mini Pen Needle 1 Device by [employer] [facility] [...] Center 11/12/2022 11:30 AM Dixie Tadeo MD [facility] ENDO [facility] Date and Time Provider and Specialty Location Need to be scheduled Chris Stanley APRN , PCP [address] / [facility] [address] Your Inpatient Doctor(s) at [facility]: Jose Mcleod MD Your Primary Care Provider: Chris Stanley APRN [address] / [facility] [address] For questions regarding this document or issues relating to this hospitalization on the Medical Service, please contact your inpatient physician through the [facility] Concrete Pouring Supervisor . Issues afterhours and on weekends will [...] or its attachments. INTERVENTIONAL RADIOLOGY PHONE NUMBERS [phone] ___X___ If you have a NON Low profile feeding tube, call with any questions or concerns. During regular office hours call: [phone]. If it is after regular office hours, weekends or holidays, please call [phone] and ask to speak to the Internal Sales frontend engineer for Interventional Radiology. Revised 02/23/19 YOU ARE [...] avoid another low BG in the future. [facility] INTERVENTIONAL RADIOLOGY NURSES NOTE FOR GASTROPEXY SUTURE [...] is during regular office hours, please call [phone]. If it is after regular office hours, or on weekends or holidays, please call [phone] and ask to speak to the Internal Sales frontend engineer for Interventional Radiology. Revised 10/17/19 Future Appointments and Orders Future Appointments and Orders Future Appointments Provider Department Dept Phone 11/12/2022 11:30 AM Dixie Tadeo MD Endocrinology at [facility] Arrive at: Production Officer Area 3A [phone] Future Orders Complete By Expires XR Pelvis and Hip 2 Views Left [50840 Custom] 09/09/2022 (Approximate) 03/11/2023 Process Instructions: Scheduling Instructions: Comments: Questions: Where will study be performed?: [facility] Radiology Portable exam?: Reason for exam and clinical history: s/p perc fixation L FNF @[facility], being referred to arthroplasty team for consideration of KYUNG Clinical information / fam questions for radiologist: Stat read required?: Date of injury if applicable: Requested Time: Referral for Home Tube feeds [[id number] CPT(R)] As directed Process Instructions: Scheduling Instructions: Comments: Ishan Liuson [address] [facility] [address] (home) - Telephone Information: Medicaid Yes/No Medicaid Number: [id number] Narrative: Patient has a feeding tube and requires tube feedings and supplies necessary to maintainnutritional support . VENDOR: [employer] Care Supporting Diagnosis: esophageal stricture Length of [...] admission to Home Health. [address] [facility] [address] Date of : 1960 Inpatient DOCUMENTATION FOR VNA SERVICES (INCLUDING THOSE PATIENTS WITH MEDICARE COVERAGE REQUIRING HOME VNA SERVICES AND/OR HOSPICE SERVICES) PATIENT'S LOCATION: Ishan Irving [address] [facility] [address] (home) Cell: Telephone Information: Sound Art Instructor's Name: Lee Gasca In discussion with the attending physician, it is certified that this patient is under their care and that they, or a Nurse Practitioner,Clinical Nurse specialist or Physician Ophthalmic Technician Apprentice who is working directly with them, had [...] for managing ADL's. HOME HEALTH CARE AGENCY: [facility]. [address] [place] [address] Start of care: 24-48 hours post DC [...] Chris Stanley APRN [address] / [place] [address] All VNA agencies which cover the area of patient's residence have been reviewed, either verbally terrence writing, and patient/family have chosen the home health care agency noted Questions: Disciplines Requested: Physical Therapy Occupational Therapy Nursing Provider Contact Information: Chris Stanley APRN [address] / [employer] [address] Discharge References/Attachments: Discharge References/Attachments None documented in [...] or its attachments. INTERVENTIONAL RADIOLOGY PHONE NUMBERS [phone] ___X___ If you have a NON Low profile feeding tube, call with any questions or concerns. During regular office hours call: [phone]. If it is after regular office hours, weekends or holidays, please call [phone] and ask to speak to the Internal Sales frontend engineer for Interventional Radiology. Revised 02/23/19 YOU ARE [...] avoid another low BG in the future. [facility] INTERVENTIONAL RADIOLOGY NURSES NOTE FOR GASTROPEXY SUTURE [...] is during regular office hours, please call [phone]. If it is after regular office hours, or on weekends or holidays, please call [phone] and ask to speak to the Internal Sales frontend engineer for Interventional Radiology. Revised 02/23/19 * Patient [...] Center 11/12/2022 11:30 AM Dixie Tadeo MD [facility] ENDO [facility] Date and Time Provider and Specialty Location Need to be scheduled Chris Stanley APRN , PCP [address] / [facility] [address] Your Inpatient Doctor(s) at [facility]: Jose Mcleod MD Your Primary Care Provider: Chris Stanley APRN [address] / [facility] [address] For questions regarding this document or issues relating to this hospitalization on the Medical Service, please contact your inpatient physician through the [facility] Concrete Pouring Supervisor . Issues afterhours and on weekends will [...] meter kit. 1 each 0 12/14/2014 Insulin [place], Disposable, (BD INSULIN PEN NEEDLE UF MINI) [...] spent >30 minutes (Day of Discharge Code 99118) involved in the final examination of the [...] deficiency anemia,??GERD??c/b??esophagitis &??Farrell's esophagus??presenting in transfer from [facility], suspected to be in cardiogenic shock [...] BG in the future. Elsie Erickson APRN [facility] Endocrinology Diabetes Management Pager [phone] minutes of 50 minutes was spent [...] ADLs]: Hands on Surveillance [facility]continuous indirect [facility] Room near nurses' station Rounding [...] fellows interpretation Confirmed by fellow Niurka Rose ([id number]) on 09/07/2022 8:45:34 AM Confirmed by MD [...] anemia,??GERD??c/b??esophagitis &??Farrell's esophagus, who was admitted to [facility] on 08/14/2022??for mixed shock and stress cardiomyopathy [...] with family 09/25 Team Pager( Coverage 30/11): #[phone] PCP: Chris Stanley APRN [phone] Attestation: Attending Attestation and Certification I have examined the patient myself and personally reviewed all studies. In addition, I certify thatI am a D-H credentialed attending provider with admitting privileges and that the patient meets or has met medical necessity to require an inpatient IPI level of care meeting a minimum of two midnights or is on the [facility] inpatient only procedure list (status C) due to: the patient has met Inpatient IPI criteria and is awaiting rehabilitation or penitentiary facility placement with active referrals in process [...] importance to continue to progress athome. Pager: [phone] DANIELA Montes 09/24/2022 Occupational Therapy Rehabilitation Department * Margret Moreno RN - 09/24/2022 1:55 PM EDT Infusion Resource Center Follow up Note: Referral to : NE Confirmed with Wallace SHARON that patient will be seen day after discharge Hospital teaching occurred at 10AM 09-24-22 Delivery of IV supplies will occur 09-24-22 @ 5pm . To be delivered to patients room in the hospital. Infusion Resource Center [phone] * Alicia Gillis - 09/24/2022 10:38 AM [...] ? CPG GOAL OUTCOME EVALUATION: * Elsie Erickson, NUT SIFTER - 09/23/2022 3:41 PM EDT Follow Up [...] deficiency anemia,??GERD??c/b??esophagitis &??Farrell's esophagus??presenting in transfer from [facility], suspected to be in cardiogenic shock [...] 14 hrs Monitoring: Q4 Elsie Erickson APRN [facility] Endocrinology Diabetes Management Pager [phone] minutes of this 50 minute visit [...] Problems Diagnosis Date Resolved ??? Shock 08/22/2022 [facility] Active Non-Hospital Problems Diagnosis ??? [...] fellows interpretation Confirmed by fellow Niurka Rose ([id number]) on 09/07/2022 8:45:34 AM Confirmed by MD [...] anemia,??GERD??c/b??esophagitis &??Farrell's esophagus, who was admitted to [facility] on 08/14/2022??for mixed shock and stress cardiomyopathy [...] with family 09/25 Team Pager(MD Coverage 30/11): #[phone] PCP: Chris Stanley, NUT SIFTER [phone] Attestation: Attending Attestation and Certification I have examined the patient myself and personally reviewed all studies. In addition, I certify thatI am a D-H credentialed attending provider with admitting privileges and that the patient meets or has met medical necessity to require an inpatient IPI level of care meeting a minimum of two midnights or is on the [facility] inpatient only procedure list (status C) due to: the patient has met Inpatient IPI criteria and is awaiting rehabilitation or penitentiary facility placement with active referrals in process Jose Mcleod MD 09/23/2022 * Feroz Portillo, DANCING MASTER - 09/23/2022 1:55 PM EDT Physical Therapy [...] deficiency anemia,??GERD??c/b??esophagitis &??Farrell's esophagus??presenting in transfer from [facility], suspected to be in cardiogenic shock [...] attempting to sit. Cleared for home with familysupport and home services when medically ready. Discharge [...] TE-F x 2 FEROZ PORTILLO PTA Pager: [phone] Physical Therapy Inpatient Rehabilitation Department * Alicia [...] deficiency anemia,??GERD??c/b??esophagitis &??Farrell's esophagus??presenting in transfer from [facility], suspected to be in cardiogenic shock [...] times/wk Total Minutes, Occupational Therapy: 44 (x3 [facility] [phone]) Pager: [phone] DANIELA Montes 09/23/2022 Occupational Therapy Rehabilitation Department [...] fellows interpretation Confirmed by fellow Niurka Rose ([id number]) on 09/07/2022 8:45:34 AM Confirmed by MD [...] anemia,??GERD??c/b??esophagitis &??Farrell's esophagus, who was admitted to [facility] on 08/14/2022??for mixed shock and stress cardiomyopathy [...] with family 09/25 Team Pager(MD Coverage 30/11): #[phone] PCP: Chris Stanley APRN [phone] Attestation: Attending Attestation and Certification I have examined the patient myself and personally reviewed all studies. In addition, I certify thatI am a D-H credentialed attending provider with admitting privileges and that the patient meets or has met medical necessity to require an inpatient IPI level of care meeting a minimum of two midnights or is on the [facility] inpatient only procedure list (status C) due to: the patient has met Inpatient IPI criteria and is awaiting rehabilitation or penitentiary facility placement with active referrals in process Jose Mcleod MD 09/22/2022 * Jenn Staples PA - 09/22/2022 7:46 AM EDT ORTHOPAEDIC SURGERY INPATIENT PROGRESS NOTE Patient Name: Ishan Irving Age: 62 y.o. Surgery/Issue: concern for septic arthritis s/p ORIF of the L Hip Fx at [facility] Attending: David Lynne MD Date of surgery: 08/09/2022 SUBJECTIVE / INTERVAL HISTORY: Ms Irving is a 62 y.o. woman with a history of L femoral neck fracture,??bipolar disorder, resolving medication-induced Parkinsonism, insulin- dependent diabetes mellitus,??hx of alcohol use disorder (reported to be in remission for 1.5 years) c/b chronic pancreatitis, iron deficiency anemia,??GE RD??c/b??esophagitis &??Farrell's esophagus, who was admitted to [facility] on 08/14/2022??for mixed shock and stress cardiomyopathy who transferred to Hospital Medicine due to persistent dysphagia. Per primary team patient remains clinically stable. Ms Irving is being seen today by orthopedics for 1 month surveillance check of possible septic arthritis s/p ORIF of Right hip performed by Dr. Lynne at [facility] on 08/09/2022. Today Patient reports thatshe is doing well and is going home on Wednesday. Per primary team PT/OT are recommending Rehab but family may be able to provide 24/7 care. Primary team states they will continue [...] patient follow up with Orthopedic surgeon at [facility] for continued surveillance of fracture healing. No further follow up with Orthopedics at [facility] is necessary. Orthopedics will sign off at this time. Please page [phone] with any questions or concerns that may arise. - Activity: WBAT LLE - DVT prophylaxis: Per primary - Antibiotics: Per primary - Diet: Per primary Jenn Staples PA-C 09/24/2022 Future Appointments Date Time Provider Department Center 09/25/2022 9:00 AM [facility] IR RECOVERY MH IR [facility] Rad 11/12/2022 11:30 AM Dixie Tadeo MD [facility] * Xochitl Brooks RN - 09/22/2022 5:03 AM EDT OUTCOME EVALUATION NOTE: OUTCOME SUMMARY: Pt A&O X4. VS as charted on RA. Meds given per JUL, crushed through the PEG tube. Tube feed Nutren 1.5 cyclic 4395-2805. Pt c/o of tenderness in her L [...] Problems Diagnosis Date Resolved ??? Shock 08/22/2022 [facility] Active Non-Hospital Problems Diagnosis ??? [...] 1609 09/20/22 1106 09/20/22 0539 09/19/22 2253 09/19/22205009/19/221956 POCGLU 221* 211* 166 291* 221* 221* [...] fellows interpretation Confirmed by fellow Niurka Rose ([id number]) on 09/07/2022 8:45:34 AM Confirmed by MD [...] anemia,??GERD??c/b??esophagitis &??Farrell's esophagus, who was admitted to [facility] on 08/14/2022??for mixed shock and stress cardiomyopathy [...] with family 09/25 Team Pager( Coverage 30/11): #[phone] PCP: Chris Stanley APRN [phone] Attestation: Attending Attestation and Certification Please see [...] of two midnights or is on the [facility] inpatient only procedure list (status C) due to: the patient has met Inpatient IPI criteria and is awaiting rehabilitation or penitentiary facility placement with active referrals in process Jose Mcleod MD 09/21/2022 * Feroz Portillo, DANCING MASTER - 09/21/2022 1:50 PM EDT Physical Therapy [...] deficiency anemia,??GERD??c/b??esophagitis &??Farrell's esophagus??presenting in transfer from [facility], suspected to be in cardiogenic shock [...] home with home health, home with supervision (24/7 assist) when medically ready for hospital discharge. [...] TE-F x 3 FEROZ PORTILLO PTA Pager: [phone] Physical Therapy Inpatient Rehabilitation Department * Wilda Blankenship, RD - 09/21/2022 12:11 PM EDT Nutrition Progress Note Ishan Irving??is a 62 y.o.??female??with h/o bipolar, DM, EtOH, esophagitis, who presented to [facility] 3 days ago after being found unresponsive at home.?Patient found to have likely pneumonia+/- aspiration, newly reduced EF. Reason for Assessment: Tube Feeding, Follow-up Nutrition Recommendations: Suggest Cyclic Nutren 1.5 at 72 ml per hour plus 2 scoops of protein powder 14 hrs from 8127-7337 -pended At goal, this will provide: Nutren [...] p.o. Intake, etc. ?? Po diet per INSTANT POWDER SUPERVISOR (recs 09/04 NPO s/p MBS) ?? [...] (left upper quadrant) feeding 09/11/22 1652 -- 10 Peripheral IV Line - Single Lumen 09/21/22 0248 cephalic vein (lateral side of arm), right 248 -- less than 1 External Catheter 09/13/22 2344 09/13/22 2344 -- 8 Physical Findings Gastrointestinal: feeding tube [...] encounter: 67.7 kg (149 lb 3.2 oz). [place] Body Weight (IBW) (kg): 45.45 Usual Body [...] while inpatient THANKS Wilda Blankenship RD Pager #[phone] * Siobhan Harper LPN - 09/20/2022 11:27 PM EDT Patient alert Ox4, complained of foot pain, elevated feet with pillows. Offered her gabbie stocking, she stated she will try them tomorrow. Fs- 2119 was 291, insulin was given per MAR [...] anemia,??GERD??c/b??esophagitis &??Farrell's esophagus, who was admitted to [facility] on 08/14/2022 (now on Hospital Day #23)??for [...] Infusions: ??? tube feeding diet 1,008 mL (05/14/23 0602) ??? tube feeding diet Stopped (09/17/222218) [...] barrier technique was used throughout. ??A 4 Venezuelan glide catheter??was placed??as a??nasoenteric tube??under fluoroscopy with [...] now extending below the diaphragm and included njoxi-iq-[id number]. 2. Similarappearance of elevated right hemidiaphragm and [...] anemia,??GERD??c/b??esophagitis &??Farrell's esophagus, who was admitted to [facility] on 08/14/2022 (now on Hospital Day #23)??for [...] that they would be able to provide 24 care forpatient with his son and patient's [...] IPI criteria and is awaiting rehabilitation or penitentiary facility placement withactive referrals in process Team Pager (MD Coverage 30/11): #[phone] PCP: VAUGHN Whyte MD 09/20/22 * Shirley Thibodeaux RN - 09/20/2022 5:21 AM EDT OUTCOME EVALUATION NOTE: OUTCOME SUMMARY: Pt is A/OX4, VSS on RA. Pt denies SOB,NVD, chest pain. 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 Pt C/O of acid [...] anemia,??GERD??c/b??esophagitis &??Farrell's esophagus, who was admitted to [facility] on 08/14/2022 (now on Hospital Day #23)??for [...] ??? tube feeding diet 1,008 mL (09/19/22 9740) ??? tube feeding diet Stopped (09/17/222218) PRN [...] barrier technique was used throughout. ??A 4 Venezuelan glide catheter??was placed??as a??nasoenteric tube??under fluoroscopy with [...] 10 days. ?? Resident/Fellow: None. ?? Attending: I, Dr. Hart performed this procedure. XR Hip 2-3 Views Left (09/15/2022) 1. Healed left femoral neck fracture with short femoral neck 2. Maintained post reduction alignmentand no hardware complications. XR Hip 2-3 Views Left (08/22/2022) No radiographic evidence of infection. XR Chest One View (09/05/2022) 1. Reposition enteric tube now extending below the diaphragm and included oegma-ck-kgsr. 2. Similarappearance of elevated right hemidiaphragm and [...] anemia,??GERD??c/b??esophagitis &??Farrell's esophagus, who was admitted to [facility] on 08/14/2022 (now on Hospital Day #23)??for [...] minimumof two midnights or is on the [facility] inpatient only procedure list (status C) due to: the patient has met Inpatient IPI criteria and is awaiting rehabilitation or penitentiary facility placement withactive referrals in process Team Pager (MD Coverage 30/11): #[phone] PCP: VAUGHN Whyte MD 09/19/22 * Shirley Thibodeaux RN - 09/19/2022 4:47 AM EDT OUTCOME EVALUATION NOTE: OUTCOME SUMMARY: Pt is A/OX4, VSS on RA. Pt denies SOB,NVD, chest pain. 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 Pt C/O of nausea, [...] anemia,??GERD??c/b??esophagitis &??Farrell's esophagus, who was admitted to [facility] on 08/14/2022 (now on Hospital Day #23) [...] Hunt MD Attending, Hospital Medicine Service Pager #[phone] 09/18/2022 24 Hour Events: None Subjective: Doing [...] Remarkable for the following: Labs: Recent Labs 09/16/2230709/15/22 0300 09/14/22 0333 WBC 6.7 5.9 5.5 [...] 168 hours. No results for input(s): PHART, DOJ6QOU, PO2ART, RJQ3NUC in the last 168 hours. Micro: No [...] minimumof two midnights or is on the [facility] inpatient only procedure list (status C) due to: the patient has met Inpatient IPI criteria and is awaiting rehabilitation or penitentiary facility placement withactive referrals in process Alan [...] deficiency anemia,??GERD??c/b??esophagitis &??Farrell's esophagus??presenting in transfer from [facility], suspected to be in cardiogenic shock [...] times/wk Total Minutes, Occupational Therapy: 48 (x3 [facility] 1045-11:33) Pager: [phone] DANIELA Montes 09/18/2022 Occupational Therapy Rehabilitation Department * Shirley Thibodeaux RN - 09/18/2022 3:01 AM EDT OUTCOME EVALUATION NOTE: OUTCOME SUMMARY: Pt is A/OX4, VSS on RA. Pt denies SOB,NVD, chest pain. 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 Pt C/O of nausea, [...] anemia,??GERD??c/b??esophagitis &??Farrell's esophagus, who was admitted to [facility] on 08/14/2022 (now on Hospital Day #23) [...] Hunt MD Attending, Hospital Medicine Service Pager #[phone] 09/17/2022 24 Hour Events: None Subjective: Doing [...] 10 CREATININE 0.47* 0.44* 0.45* Recent Labs 09/16/2230709/15/2229909/14/22 0333 CALCIUM 9.4 9.2 9.1 MAGNESIUM 0.80 0.77 0.74 PHOS 3.0 2.6 2.9 No results for input(s): AST, ALT, ALKPHOS, BILITOT, BILIDIR in the last 168 hours. No results for input(s): TROPONINT, CK in the last 168 hours. No results for input(s): PHART, ABS4BSF, PO2ART, OED5XMB in the last 168 hours. Micro: No [...] ??? tube feeding diet 1,260 mL (09/17/22 07) PRN: polyethylene glycoL, prochlorperazine, ondansetron, diclofenac, senna, [...] IPI criteria and is awaiting rehabilitation or penitentiary facility placement withactive referrals in process Alan Hunt MD * Nancy Ernst, HUGH - 09/17/2022 12:38 PM EDT Nutrition Progress Note Ishan Irving??is a 62 y.o.??female??with h/o bipolar, DM, EtOH, esophagitis, who presented to [facility] 3 days ago after being found unresponsive at home.?Patient found to have likely pneumonia+/- aspiration, newly reduced EF. Reason for Assessment: Tube Feeding, Follow-up Nutrition Recommendations: Suggest Cyclic Nutren 1.5 at 72 ml per hour plus 2 scoops of protein powder 14 hrs from 9831-4540 -pended At goal, this will provide: Nutren 1.5 Total Volume Per Day: 1012 mL Calories per Day: 1518 Protein per Day: 69 g Free Water mL per Day: 773 % RDI: 101 % Monitor hydration status on above TFs as they are concentrated. Pt may need additional fluids depending on IVFs, med flushes, p.o. Intake, etc. ?? Po diet per INSTANT POWDER SUPERVISOR (recs 09/04 NPO s/p MBS) ?? [...] 90 mL/hr Per G Tube Cyclic-(Tube feed) 05/06/23 1236 Average tube feeding provision over past [...] 1652 -- 6 External Catheter 09/13/22 2344 09/13/22 [...] of this encounter: 64.4 kg (142 lb). [place] Body Weight (IBW) (kg): 45.45 Usual Body [...] up while inpatient Nancy Ernst RD Pager #:[phone] * Shirley Thibodeaux RN - 09/17/2022 3:42 AM EDT OUTCOME EVALUATION NOTE: OUTCOME SUMMARY: Pt is A/OX4, VSS on RA. Pt denies SOB,NVD, chest pain. 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 Assessment as documented (see [...] deficiency anemia,??GERD??c/b??esophagitis &??Farrell's esophagus??presenting in transfer from [facility], suspected to be in cardiogenic shock [...] the current findings, Anticipated Discharge Disposition (PT): penitentiary facility when medically ready for hospital discharge. [...] TE-F x 3 FEROZ PORTILLO PTA Pager: [phone] Physical Therapy Inpatient Rehabilitation Department * Alan [...] anemia,??GERD??c/b??esophagitis &??Farrell's esophagus, who was admitted to [facility] on 08/14/2022 (now on Hospital Day #23) [...] Hunt MD Attending, Hospital Medicine Service Pager #[phone] 09/16/2022 24 Hour Events: None Subjective: Doing [...] 10.1* PLATELET 242 252 246 Recent Labs 09/16/2230709/15/220 09/14/22 0333 NA 140 140 140 K [...] 168 hours. No results for input(s): PHART, DLG2ZUE, PO2ART, FXV4RET in the last 168 hours. Micro: No [...] minimumof two midnights or is on the [facility] inpatient only procedure list (status C) due to: the patient has met Inpatient IPI criteria and is awaiting rehabilitation or penitentiary facility placement withactive referrals in process Alan [...] deficiency anemia,??GERD??c/b??esophagitis &??Farrell's esophagus??presenting in transfer from [facility], suspected to be in cardiogenic shock [...] 2-3 times/wk Total Minutes, Occupational Therapy: 24 ([address] [phone]) Pager: [phone] DANIELA Montes 09/16/2022 Occupational Therapy Rehabilitation Department * Jane Howe - 09/16/2022 9:54 AM EDTSummary: Clinical Notes Submitted to [facility] Medicaid Program for Review 09/16/22 0954 [facility] Medicaid Date Clinical Application Filed 09/16/22 State Application Filed in Floridajane Kirby RN [facility] from [facility] Medicaid Program requested clinical notes for Ishan gabriel level of need. [employer] sent Ishan's most recent MDs, PT/OT/INSTANT POWDER SUPERVISOR, RNCM and nursing notes. Along with [...] deficiency anemia,??GERD??c/b??esophagitis &??Farrell's esophagus??presenting in transfer from [facility], suspected to be in cardiogenic shock [...] stable overnight blood sugars Elsie Erickson APRN [facility] Endocrinology Diabetes Management Pager [phone] * Briana Bryant, INSTANT POWDER SUPERVISOR - 09/15/2022 8:38 AM EDT Speech Therapy Note Patient Profile: Ishan Irving is a 62 year old female with a medical history notable for??recent L femoral neck fracture,??bipolar disorder, resolving medication-induced Parkinsonism, insulin-dependent diabetes mellitus,??hx of alcohol use disorder (reported to be in remission for 1.5 years) c/b chronic pancreatitis, iron deficiency anemia,??GERD??c/b??esophagitis &??Farrell's esophagus??presenting in transfer from [facility]??on 08/14/2022, suspected to be in cardiogenic shock and found to be in mixed shock with concern for stress cardiomyopathy.??INSTANT POWDER SUPERVISOR following for swallow, cognitive tx. MBS [...] Pt was seen today for a follow-up INSTANT POWDER SUPERVISOR visit. Oral and pharyngeal swallow function [...] after Excellent oral care Plan: Therapy Frequency (INSTANT POWDER SUPERVISOR Eval): Monitor while hospitalized Pt./family are in agreement with treatment plan. Total Minutes (Speech Language Pathology): 10 Briana Bryant MA, [facility]-INSTANT POWDER SUPERVISOR Pager: [phone] Speech-Language Pathology Inpatient Rehabilitation Medicine * Chau Keith MD - 09/15/2022 6:34 AM EDT Images from the original note were not included. Inpatient Hospital Medicine Progress Note 09/15/2022 Patient Name: ISHAN IRVING Date of : 1960 Age: 62 y.o. Hospital Admit Date: 08/14/2022 Hospital Day: 32 Inpatient Attending: Balaji Mayer MD PCP: Chris Stanley APRN ([phone]) ID: Ishan Irving is a 62 y.o. 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.5 years) c/b chronic pancreatitis, iron deficiency anemia, ??GERD??c/b??esophagitis &??Farrell's esophagus, who was admitted to [facility] on 08/14/2022 (now on Hospital Day #32) [...] fellows interpretation Confirmed by fellow Niurka Rose ([id number]) on 09/07/2022 8:45:34 AM Confirmed by MD ALEJANDRA, RICHARD ([id number]) on 09/07/2022 1:55:43 PM QTCCALC [id number] 09/07/2022 0635 Microbiology: No results found for: URINECULTURE Lab Results Component Value Date/Time BLOODCX No growth at 5 days. 08/19/2022 1720 BLOODCX No growth at 5 days. 08/19/2022 1330 Microbiology Results (Last 30 days) Procedure Component Value Units Date/Time Lower Respiratory Culture Bronchial Alveolar Lavage [[id number]] Collected: 08/21/22 165 Lab Status: Final result Specimen: Bronchial Alveolar Lavage Updated: 08/23/22 0741 Lower Respiratory Culture Rare mixed bacterial morphotypes suggestive of normal upper respiratory wiley Gram Stain -- Few Neutrophils seen No squamous epithelial cells seen No microorganisms seen. Fungus Culture & Calc Stain Bronchial Alveolar Lavage [[id number]] (Abnormal) Collected: 08/21/22 165 Lab Status: Preliminary result Specimen: Bronchial Alveolar Lavage Updated: 08/24/22 1452 AFB culture Bronchial Alveolar Lavage [[id number]] Collected: 08/21/221649 Lab Status: Preliminary result Specimen: Bronchial Alveolar Lavage Updated: 08/24/22 2219 Acid Fast Bacilli Culture -- No Acid Fast Bacilli isolated to date If active tuberculosis is suspected, the patient should be on [employer]. Call Infection Prevention for assistance if needed. Acid Fast Stain No Acid Fast Bacilli seen Fungus culture [[id number]] (Abnormal) Collected: 08/21/22 165 Lab Status: Preliminary result Specimen: Bronchial Alveolar Lavage Updated: 08/24/22 1452 Fungus Culture Rare Jacky albicans Calcofluor White Stain [[id number]] Collected: 08/21/221649 Lab Status: Final result Specimen: Bronchial Alveolar Lavage Updated: 08/21/222015 Calcofluor Stain Calcofluor White Preparation: Negative Lower Respiratory Culture Bronchial Alveolar Lavage [[id number]] Collected: 08/21/221644 Lab Status: Final result Specimen: Bronchial Alveolar Lavage Updated: 08/23/22 0741 Lower Respiratory Culture Rare mixed bacterial morphotypes suggestive of normal upper respiratory wiley Gram Stain -- Moderate Neutrophils seen No squamous epithelial cells seen No microorganisms seen. Fungus Culture & Calc Stain Bronchial Alveolar Lavage [[id number]] (Abnormal) Collected: 08/21/221644 Lab Status: Preliminary result Specimen: Bronchial Alveolar Lavage Updated: 08/24/22 1453 AFB culture Bronchial Alveolar Lavage [[id number]] Collected: 08/21/221644 Lab Status: Preliminary result Specimen: Bronchial Alveolar Lavage Updated: 08/24/22 2221 Acid Fast Bacilli Culture -- No Acid Fast Bacilli isolated to date If active tuberculosis is suspected, the patient should be on [employer]. Call Infection Prevention for assistance if needed. Acid Fast Stain No Acid Fast Bacilli seen Fungus culture [[id number]] (Abnormal) Collected: 08/21/221644 Lab Status: Preliminary result Specimen: Bronchial Alveolar Lavage Updated: 08/24/22 1453 Fungus Culture Rare Jacky albicans Calcofluor White Stain [[id number]] Collected: 08/21/221644 Lab Status: Final result Specimen: Bronchial Alveolar Lavage Updated: 08/21/222016 Calcofluor Stain Calcofluor White Preparation: Negative Blood culture [[id number]] Collected: 08/19/22 1720 Lab Status: Final result Specimen: Blood Updated: 08/24/22 2301 Blood Culture No growth at 5 days. Lower Respiratory Culture Sputum Induced [[id number]] Collected: 08/19/22 1451 Lab Status: Final result Specimen: Sputum Induced Updated: 08/21/22 0948 Lower Respiratory Culture Rare mixed bacterial morphotypes suggestive of normal upper respiratory wiley Gram Stain -- Many Neutrophils seen Few squamous epithelial cells seen No microorganisms seen. Blood culture [[id number]] Collected: 08/19/22 1330 Lab Status: Final result Specimen: Blood Updated: 08/24/22 1501 Blood Culture No growth at 5 days. Legionella Urinary Antigen [[id number]] Collected: 08/18/22 1013 Lab Status: Final result [...] who have questions please contact the health coronary care unit nurse that requested your imaging [...] who have questions please contact the health coronary care unit nurse that requested your imaging [...] who have questions please contact the health coronary care unit nurse that requested your imaging [...] who have questions please contact the health coronary care unit nurse that requested your imaging [...] who have questions please contact the health coronary care unit nurse that requested your imaging first. Head wo Contrast (Generic) (Exam End: 08/16/2022 10:44 PM) Impression No acute intracranial abnormality and no change from prior Thank you for letting us participate in the care of this patient. If you are a health care provider and have any questions regarding this report, please contact the number below. For patients who have questions please contact the health coronary care unit nurse that requested your imaging first. Electronically signed by: Moustapha Correa MD, [facility] ([phone]), at 08/16/2022 11:19 PM XR Abdomen 1 [...] who have questions please contact the health coronary care unit nurse that requested your imaging first. Head wo Contrast (Generic) (Exam End: 08/18/2022 3:14 PM) Impression No acute intracranial process. Thank you for letting us participate in the care of this patient. If you are a health care provider and have any questions regarding this report, please contact the number below. For patients who have questions please contact the health coronary care unit nurse that requested your imaging first. Chest One View (Exam End: 08/19/2022 12:30 [...] who have questions please contact the health coronary care unit nurse that requested your imaging first. Brain wo Contrast (Exam End: 08/19/2022 10:15 PM) Impression No acute infarction, mass or mass effect. Thank you for letting us participate in the care of this patient. If you are a health care provider and have any questions regarding this report, please contact the number below. For patients who have questions please contact the health coronary care unit nurse that requested your imaging first. Chest for [...] who have questions please contact the health coronary care unit nurse that requested your imaging first. Hip w Contrast Left (Exam End: 08/20/2022 [...] who have questions please contact the health coronary care unit nurse that requested your imaging first. Chest w Contrast (Exam End: 08/20/2022 11:04 [...] who have questions please contact the health coronary care unit nurse that requested your imaging first. Hip 2-3 Views Left (Exam End: 08/22/2022 12:19 AM) Impression No radiographic evidence of infection. Thank you for letting us participate in the care of this patient. If you are a health care provider and have any questions regarding this report, please contact the number below. For patients who have questions please contact the health coronary care unit nurse that requested your imaging first. Electronically signed by: Viktor Cervantes MD, [facility] ([phone]), at 08/22/2022 12:43 PM XR Pelvis (Generic) (Exam End: 08/22/2022 12:19 AM) Impression No radiographic evidence of infection status post left hip ORIF. Thank you for letting us participate in the care of this patient. If you are a health care provider and have any questions regarding this report, please contact the number below. For patients who have questions please contact the health coronary care unit nurse that requested your imaging first. Electronically signed by: Richard Billings MD, [facility] ([phone]), at 08/22/2022 10:[address] Angiogram Coronary [...] who have questions please contact the health coronary care unit nurse that requested your imaging first. Chest wo Contrast (Generic) (Exam End: 08/27/2022 8:58 AM) Impression Stable findings of multifocal pneumonia. No interval abnormality. Thank you for letting us participate in the care of this patient. If you are a health care provider and have any questions regarding this report, please contact the number below. For patients who have questions please contact the health coronary care unit nurse that requested your imaging first. Fluoro Barium [...] who have questions please contact the health coronary care unit nurse that requested your imaging first. Fluoro Barium [...] who have questions please contact the health coronary care unit nurse that requested your imaging first. Abdomen 1 view (Generic) (Exam End: 09/04/2022 [...] who have questions please contact the health coronary care unit nurse that requested your imaging [...] who have questions please contact the health coronary care unit nurse that requested your imaging first. Chest One View (Exam End: 09/05/2022 9:24 AM) Impression 1. Reposition enteric tube now extending below the diaphragm and included [id number]. 2. Similar appearance of elevated right hemidiaphragm and linear/patchy bibasilar opacities which may represent atelectasis or possibly aspiration. Thank you for letting us participate in the care of this patient. If you are a health care provider and have any questions regarding this report, please contact the number below. For patients who have questions please contact the health coronary care unit nurse that requested your imaging first. Abdomen 1 view (Generic) (Exam End: 09/10/2022 [...] who have questions please contact the health coronary care unit nurse that requested your imaging first. Medications: Scheduled: ??? gabapentin 100 mg Oral [...] ??? tube feeding diet 1,260 mL (09/15/22 06) PRN: acetaminophen, prochlorperazine, ondansetron, diclofenac, polyethylene glycoL, [...] RD??c/b??esophagitis &??Farrell's esophagus, who was admitted to [facility] on 08/14/2022 (now on Hospital Day #23) [...] her insurance that lacks rehab coverage requiring longterm care medicaid. Her application has been submitted. [...] nightly - C/w valproate 300mg q6h - INSTANT POWDER SUPERVISOR following, NPO at present - Psychiatry [...] Medicine PGY1 Medicine Team: Jose Juan, Pager #[phone] Date: 09/15/2022 Associated attestation - Balaji Fraga [...] of two midnights or is on the [facility] inpatient only procedure list (status C) due to: the patient has met Inpatient IPI criteria and is awaiting rehabilitation or penitentiary facility placement with active referrals in process * Wilda Blankenship, HUGH - 09/14/2022 3:04 PM EDT Nutrition Progress Note Ishan Irving is a 62 y.o.??female??with h/o bipolar, DM, EtOH, esophagitis, who presented to [facility] 3 days ago after being found unresponsive at home.?Patient found to have likely pneumonia +/- aspiration, newly reduced EF. Reason for Assessment: Tube Feeding, Follow-up Nutrition Recommendations: Continue current Tube feeding Cyclic Peptamen AF at 90ml/hr for 14 hrs from [id number] At goal, this will provide: Peptamen AF Total Volume Per Day: 1260 mL Scoops of Protein: 0 Calories per Day: 1512 Protein per Day: 96 g Free Water mL per Day: 1023 % RDI: 101 % Monitor hydration status on above TFs as they are concentrated. Pt may need additional fluids depending on IVFs, med flushes, p.o. Intake, etc. Po diet per [employer] (recs 09/04 NPO s/p MBS) Continue [...] LUQ (left upper quadrant) feeding 09/11/221651 -- 3 PICC Line - Double Lumen 08/19/221654 basilic vein (medial side of arm), right 5 Fr 08/19/221654 -- 26 External Catheter 09/13/22 2344 09/13/22 [...] encounter: 67.2 kg (148 lb 1.6 oz). [place] Body Weight (IBW) (kg): 45.45 Usual Body [...] while inpatient THANKS Wilda Blankenship RD Pager #:[phone] * Feroz Portillo PTA - 09/14/2022 2:05 [...] deficiency anemia,??GERD??c/b??esophagitis &??Farrell's esophagus??presenting in transfer from [facility], suspected to be in cardiogenic shock and found to be in mixed shock with concern for stress cardiomyopathy. She is s/p ORIF left femoral neck fracture ~ 4 at OSH. Interval History: G tube placed /5, tolerating tube feeds Social History: single level [...] the current findings, Anticipated Discharge Disposition (PT): penitentiary facility when medically ready for hospital discharge. [...] TE-F x 3 FEROZ PORTILLO PTA Pager: [phone] Physical Therapy Inpatient Rehabilitation Department * Alicia Gillis - 09/14/2022 10:46 AM EDT Application submitted via [place] Medicaid portal 09/14/2022 Any further documentation to be given to state upon request. * Chau Keith MD - 09/14/2022 6:06 AM EDT Images from the original note were not included. Inpatient Hospital Medicine Progress Note 09/14/2022 Patient Name: ISHAN IRVING Date of : 1960 Age: 62 y.o. Hospital Admit Date: 08/14/2022 Hospital Day: 31 Inpatient Attending: Chong Chao MD PCP: Chris Stanley APRN ([phone]) ID: Ishan Irving is a 62 y.o. 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.5 years) c/b chronic pancreatitis, iron deficiency anemia, ??GERD??c/b??esophagitis &??Farrell's esophagus, who was admitted to [facility] on 08/14/2022 (now on Hospital Day #31) [...] dry, no rashes LABS: CBC: Recent Labs 09/14/2233209/13/22 0315 09/12/22 0325 09/11/22 0405 09/10/22 0920 WBC 5.5 5.2 5.3 4.5 5.7 HGB 10.1* 9.2* 9.6* 9.0* 9.2* HCT 33.7* 30.9* 32.4* 30.2* 31.4* PLATELET 246 239 241 219 229 NEUTROABS 2.69 2.31 4.22 2.39 3.39 Chemistry: Recent Labs 09/14/2233209/13/22 1238 09/13/22 0315 09/12/22 1540 09/12/22 0325 NA 140 140 141 140 139 K 4.1 3.8 3.6 4.0 4.5 CL 102 101 103 102 104 CO2 28 26 29 24 26 BUN 10 8 8 7* 8 CREATININE 0.45* 0.50* 0.52* 0.53* 0.49* GLUCOSE Not Perf 115 87 103 123 ANIONGAP 10 13 9 14 9 Recent Labs 09/14/22 03309/13/22 1238 09/13/22 0315 09/12/22 1540 09/12/22 0325 [...] fellows interpretation Confirmed by fellow Niurka Rose ([id number]) on 09/07/2022 8:45:34 AM Confirmed by MD [...] Date/Time Lower Respiratory Culture Bronchial Alveolar Lavage [[id number]] Collected: 04/14/23 1650 Lab Status: Final result Specimen: Bronchial Alveolar Lavage Updated: 08/23/22 0741 Lower Respiratory Culture Rare mixed bacterial morphotypes suggestive of normal upper respiratory wiley Gram Stain -- Few Neutrophils seen No squamous epithelial cells seen No microorganisms seen. Fungus Culture & Calc Stain Bronchial Alveolar Lavage [[id number]] (Abnormal) Collected: 08/21/221649 Lab Status: Preliminary result Specimen: Bronchial Alveolar Lavage Updated: 08/24/22 1452 AFB culture Bronchial Alveolar Lavage [[id number]] Collected: 08/21/221649 Lab Status: Preliminary result Specimen: Bronchial Alveolar Lavage Updated: 08/24/22 2219 Acid Fast Bacilli Culture -- No Acid Fast Bacilli isolated to date If active tuberculosis is suspected, the patient should be on AIRBORNE PRECAUTIONS. Call Infection Prevention for assistance if needed. Acid Fast Stain No Acid Fast Bacilli seen Fungus culture [[id number]] (Abnormal) Collected: 08/21/221649 Lab Status: Preliminary result Specimen: Bronchial Alveolar Lavage Updated: 08/24/22 145 Fungus Culture Rare Jacky albicans Calcofluor White Stain [[id number]] Collected: 08/21/221649 Lab Status: Final result Specimen: Bronchial Alveolar Lavage Updated: 08/21/222015 Calcofluor Stain Calcofluor White Preparation: Negative Lower Respiratory Culture Bronchial Alveolar Lavage [[id number]] Collected: 08/21/221644 Lab Status: Final result Specimen: Bronchial Alveolar Lavage Updated: 08/23/22 0741 Lower Respiratory Culture Rare mixed bacterial morphotypes suggestive of normal upper respiratory wiley Gram Stain -- Moderate Neutrophils seen No squamous epithelial cells seen No microorganisms seen. Fungus Culture & Calc Stain Bronchial Alveolar Lavage [[id number]] (Abnormal) Collected: 08/21/221644 Lab Status: Preliminary result Specimen: Bronchial Alveolar Lavage Updated: 08/24/22 1453 AFB culture Bronchial Alveolar Lavage [[id number]] Collected: 08/21/221644 Lab Status: Preliminary result Specimen: Bronchial Alveolar Lavage Updated: 08/24/22 2221 Acid Fast Bacilli Culture -- No Acid Fast Bacilli isolated to date If active tuberculosis is suspected, the patient should be on AIRBORNE PRECAUTIONS. Call Infection Prevention for assistance if needed. Acid Fast Stain No Acid Fast Bacilli seen Fungus culture [[id number]] (Abnormal) Collected: 08/21/221644 Lab Status: Preliminary result Specimen: Bronchial Alveolar Lavage Updated: 08/24/22 1453 Fungus Culture Rare Jacky albicans Calcofluor White Stain [[id number]] Collected: 08/21/22 1645 Lab Status: Final result Specimen: Bronchial Alveolar Lavage Updated: 08/21/22 2017 Calcofluor Stain Calcofluor White Preparation: Negative Blood culture [[id number]] Collected: 08/19/22 1720 Lab Status: Final result Specimen: Blood Updated: 08/24/22 2301 Blood Culture No growth at 5 days. Lower Respiratory Culture Sputum Induced [[id number]] Collected: 08/19/22 1451 Lab Status: Final result Specimen: Sputum Induced Updated: 08/21/22 0948 Lower Respiratory Culture Rare mixed bacterial morphotypes suggestive of normal upper respiratory wiley Gram Stain -- Many Neutrophils seen Few squamous epithelial cells seen No microorganisms seen. Blood culture [[id number]] Collected: 08/19/22 1330 Lab Status: Final result Specimen: Blood Updated: 08/24/22 1501 Blood Culture No growth at 5 days. Legionella Urinary Antigen [[id number]] Collected: 08/18/22 1013 Lab Status: Final result [...] Catheter Urine; Other; sepsis, bacteria on UA [[id number]] Collected: 08/15/22 1225 Lab Status: Final result Specimen: Indwelling Catheter Urine Updated: 08/16/22 0804 Urine Culture 1,000-9,000 cfu/ml Insignificant growth COVID-19 PCR [[id number]] Collected: 08/15/22 1150 Lab Status: Final result [...] using the Simplexa COVID-19 Direct Assay by [employer] as authorized by the FDA issued Emergency [...] Department of Pathology and Laboratory Medicine at [facility], certified under the Clinical Laboratory Improvement Amendments [...] fact sheets at the following FDA website: https://www.fda.gov/medical-devices/cjxppdxyhpe-yfokbae-8172-cpkvo-98-lyggvmvpn- nwd-pwofcprvfjfvty-awrzdoy-devices/phcvw-uispilrvgyc-xpnx SARS-CoV-2 Source TRAIN GATE ATTENDANT Swab Lower Respiratory Culture Sputum Induced [[id number]] Collected: 08/15/22 0740 Lab Status: Final result [...] who have questions please contact the health coronary care unit nurse that requested your imaging [...] who have questions please contact the health coronary care unit nurse that requested your imaging [...] who have questions please contact the health coronary care unit nurse that requested your imaging [...] who have questions please contact the health coronary care unit nurse that requested your imaging [...] who have questions please contact the health coronary care unit nurse that requested your imaging first. Head wo Contrast (Generic) (Exam End: 08/16/2022 10:44 PM) Impression No acute intracranial abnormality and no change from prior Thank you for letting us participate in the care of this patient. If you are a health care provider and have any questions regarding this report, please contact the number below. For patients who have questions please contact the health coronary care unit nurse that requested your imaging first. Electronically signed by: Moustapha Correa MD, [facility] ([phone]), at 08/16/2022 11:19 PM XR Abdomen 1 [...] who have questions please contact the health coronary care unit nurse that requested your imaging first. Head wo Contrast (Generic) (Exam End: 08/18/2022 3:14 PM) Impression No acute intracranial process. Thank you for letting us participate in the care of this patient. If you are a health care provider and have any questions regarding this report, please contact the number below. For patients who have questions please contact the health coronary care unit nurse that requested your imaging first. Chest One View (Exam End: 08/19/2022 12:30 [...] who have questions please contact the health coronary care unit nurse that requested your imaging first. Brain wo Contrast (Exam End: 08/19/2022 10:15 PM) Impression No acute infarction, mass or mass effect. Thank you for letting us participate in the care of this patient. If you are a health care provider and have any questions regarding this report, please contact the number below. For patients who have questions please contact the health coronary care unit nurse that requested your imaging first. Chest for [...] who have questions please contact the health coronary care unit nurse that requested your imaging first. Hip w Contrast Left (Exam End: 08/20/2022 [...] who have questions please contact the health coronary care unit nurse that requested your imaging first. Chest w Contrast (Exam End: 08/20/2022 11:04 [...] who have questions please contact the health coronary care unit nurse that requested your imaging first. Hip 2-3 Views Left (Exam End: 08/22/2022 12:19 AM) Impression No radiographic evidence of infection. Thank you for letting us participate in the care of this patient. If you are a health care provider and have any questions regarding this report, please contact the number below. For patients who have questions please contact the health coronary care unit nurse that requested your imaging first. Electronically signed by: Viktor Cervantes MD, [facility] ([phone]), at 08/22/2022 12:43 PM XR Pelvis (Generic) (Exam End: 08/22/2022 12:19 AM) Impression No radiographic evidence of infection status post left hip ORIF. Thank you for letting us participate in the care of this patient. If you are a health care provider and have any questions regarding this report, please contact the number below. For patients who have questions please contact the health coronary care unit nurse that requested your imaging first. Electronically signed by: Richard Billings MD, [facility] ([phone]), at 08/22/2022 10:[address] Angiogram Coronary [...] who have questions please contact the health coronary care unit nurse that requested your imaging first. Chest wo Contrast (Generic) (Exam End: 08/27/2022 8:58 AM) Impression Stable findings of multifocal pneumonia. No interval abnormality. Thank you for letting us participate in the care of this patient. If you are a health care provider and have any questions regarding this report, please contact the number below. For patients who have questions please contact the health coronary care unit nurse that requested your imaging first. Fluoro Barium [...] who have questions please contact the health coronary care unit nurse that requested your imaging first. Fluoro Barium [...] who have questions please contact the health coronary care unit nurse that requested your imaging first. Abdomen 1 view (Generic) (Exam End: 09/04/2022 [...] who have questions please contact the health coronary care unit nurse that requested your imaging [...] who have questions please contact the health coronary care unit nurse that requested your imaging first. Chest One View (Exam End: 09/05/2022 9:24 AM) Impression 1. Reposition enteric tube now extending below the diaphragm and included bkkgs-gn-rcms. 2. Similar appearance of elevated right hemidiaphragm and linear/patchy bibasilar opacities which may represent atelectasis or possibly aspiration. Thank you for letting us participate in the care of this patient. If you are a health care provider and have any questions regarding this report, please contact the number below. For patients who have questions please contact the health coronary care unit nurse that requested your imaging first. Abdomen 1 view (Generic) (Exam End: 09/10/2022 [...] who have questions please contact the health coronary care unit nurse that requested your imaging first. Medications: Scheduled: ??? gabapentin 100 mg Oral [...] RD??c/b??esophagitis &??Farrell's esophagus, who was admitted to [facility] on 08/14/2022 (now on Hospital Day #23) [...] her insurance that lacks rehab coverage requiring longterm care medicaid. Her application has been submitted. [...] nightly - C/w valproate 300mg q6h - [employer] following, NPO at present - Psychiatry [...] Medicine PGY1 Medicine Team: Jose Juan, Pager #[phone] Date: 09/14/2022 Associated attestation - Balaji Fraga [...] IPI criteria and is awaiting rehabilitation or penitentiary facility placement with active referrals in process * Chau Keith MD - 09/13/2022 6:09 AM EDT Images from the original note were not included. Inpatient Hospital Medicine Progress Note 09/13/2022 Patient Name: ISHAN IRVING Date of : 1960 Age: 62 y.o. Hospital Admit Date: 08/14/2022 Hospital Day: 30 Inpatient Attending: Chong Chao MD PCP: Chris Stanley APRN ([phone]) ID: Ishan Irving is a 62 y.o. 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.5 years) c/b chronic pancreatitis, iron deficiency anemia, ??GERD??c/b??esophagitis &??Afrrell's esophagus, who was admitted to [facility] on 08/14/2022 (now on Hospital Day #30) [...] dry, no rashes LABS: CBC: Recent Labs 09/13/225 09/12/22 0325 09/11/22 0405 09/10/22 0920 09/09/22 [...] fellows interpretation Confirmed by fellow Niurka Rose ([id number]) on 09/07/2022 8:45:34 AM Confirmed by MD [...] Date/Time Lower Respiratory Culture Bronchial Alveolar Lavage [[id number]] Collected: 08/21/221649 Lab Status: Final result Specimen: Bronchial Alveolar Lavage Updated: 08/23/22740 Lower Respiratory Culture Rare mixed bacterial morphotypes suggestive of normal upper respiratory wiley Gram Stain -- Few Neutrophils seen No squamous epithelial cells seen No microorganisms seen. Fungus Culture & Calc Stain Bronchial Alveolar Lavage [[id number]] (Abnormal) Collected: 08/21/221649 Lab Status: Preliminary result Specimen: Bronchial Alveolar Lavage Updated: 08/24/22 1452 AFB culture Bronchial Alveolar Lavage [[id number]] Collected: 08/21/221649 Lab Status: Preliminary result Specimen: Bronchial Alveolar Lavage Updated: 08/24/222218 Acid Fast Bacilli Culture -- No Acid Fast Bacilli isolated to date If active tuberculosis is suspected, the patient should be on AIRBORNE PRECAUTIONS. Call Infection Prevention for assistance if needed. Acid Fast Stain No Acid Fast Bacilli seen Fungus culture [[id number]] (Abnormal) Collected: 08/21/221649 Lab Status: Preliminary result Specimen: Bronchial Alveolar Lavage Updated: 08/24/22 145 Fungus Culture Rare Jacky albicans Calcofluor White Stain [[id number]] Collected: 08/21/221649 Lab Status: Final result Specimen: Bronchial Alveolar Lavage Updated: 08/21/22 2016 Calcofluor Stain Calcofluor White Preparation: Negative Lower Respiratory Culture Bronchial Alveolar Lavage [[id number]] Collected: 08/21/221644 Lab Status: Final result Specimen: Bronchial Alveolar Lavage Updated: 08/23/22740 Lower Respiratory Culture Rare mixed bacterial morphotypes suggestive of normal upper respiratory wiley Gram Stain -- Moderate Neutrophils seen No squamous epithelial cells seen No microorganisms seen. Fungus Culture & Calc Stain Bronchial Alveolar Lavage [[id number]] (Abnormal) Collected: 08/21/221644 Lab Status: Preliminary result Specimen: Bronchial Alveolar Lavage Updated: 08/24/22 1453 AFB culture Bronchial Alveolar Lavage [[id number]] Collected: 08/21/221644 Lab Status: Preliminary result Specimen: Bronchial Alveolar Lavage Updated: 08/24/22 2221 Acid Fast Bacilli Culture -- No Acid Fast Bacilli isolated to date If active tuberculosis is suspected, the patient should be on AIRBORNE PRECAUTIONS. Call Infection Prevention for assistance if needed. Acid Fast Stain No Acid Fast Bacilli seen Fungus culture [[id number]] (Abnormal) Collected: 08/21/221644 Lab Status: Preliminary result Specimen: Bronchial Alveolar Lavage Updated: 08/24/22 145 Fungus Culture Rare Jacky albicans Calcofluor White Stain [[id number]] Collected: 08/21/221644 Lab Status: Final result Specimen: Bronchial Alveolar Lavage Updated: 08/21/22 2017 Calcofluor Stain Calcofluor White Preparation: Negative Blood culture [[id number]] Collected: 08/19/22 1720 Lab Status: Final result Specimen: Blood Updated: 08/24/22 2301 Blood Culture No growth at 5 days. Lower Respiratory Culture Sputum Induced [[id number]] Collected: 08/19/22 1451 Lab Status: Final result Specimen: Sputum Induced Updated: 08/21/22 0948 Lower Respiratory Culture Rare mixed bacterial morphotypes suggestive of normal upper respiratory wiley Gram Stain -- Many Neutrophils seen Few squamous epithelial cells seen No microorganisms seen. Blood culture [[id number]] Collected: 08/19/22 1330 Lab Status: Final result Specimen: Blood Updated: 08/24/22 1501 Blood Culture No growth at 5 days. Legionella Urinary Antigen [[id number]] Collected: 08/18/22 1013 Lab Status: Final result [...] Catheter Urine; Other; sepsis, bacteria on UA [[id number]] Collected: 08/15/22 1225 Lab Status: Final result Specimen: Indwelling Catheter Urine Updated: 08/16/22 0804 Urine Culture 1,000-9,000 cfu/ml Insignificant growth COVID-19 PCR [[id number]] Collected: 08/15/22 1150 Lab Status: Final result [...] using the Simplexa COVID-19 Direct Assay by [employer] as authorized by the FDA issued Emergency [...] Department of Pathology and Laboratory Medicine at [facility], certified under the Clinical Laboratory Improvement Amendments [...] fact sheets at the following FDA website: https://www.fda.gov/medical-devices/dixkdusebdq-hvetdiq-8310-cadnf-29-lppaxilqw- tsq-izmfklwviygopq-erkxinq-devices/ipfys-vtabcelxqoq-yfpd SARS-CoV-2 Source TRAIN GATE ATTENDANT Swab Lower Respiratory Culture Sputum Induced [[id number]] Collected: 08/15/22 0740 Lab Status: Final result Specimen: Sputum Induced Updated: 08/17/22 1015 Lower Respiratory Culture Rare normal upper respiratory wiley Gram Stain -- Many Neutrophils Few squamous epithelial cells Rare mixed bacterial morphotypes suggestive of normal upper respiratory wiley Blood culture [[id number]] Collected: 08/15/22 0110 Lab Status: Final result Specimen: Blood Updated: 08/20/22700 Blood Culture No growth at 5 days. MRSA PCR Screen ([facility]D/[facility]) [[id number]] Collected: 08/15/22 0050 Lab Status: Final result Specimen: Nasopharyngeal Swab Updated: 08/17/22 1419 MRSA Result Negative MRSA Interp -- Methicillin-resistant Staphylococcus aureus (MRSA) is NOT DETECTED The MRSA target DNA sequences (mec and SCC) were not detected within the acceptable ranges using the Xpert MRSA NxG on the GeneXpert Dx System ([employer]). This suggests the absence of MRSA in the patient specimen submitted for testing. This test is cleared by the U.S. Food and Drug Administration for clinical use and its performance characteristics have been verified by the [facility] at [facility]. This result does not rule out the presence of any other organisms. Rare false negative results may occur if MRSA is present at low concentrations with much higher concentrations of other organisms including MRSE or S. aureus with an empty SCC cassette. Comment: [VERIFIED DATE]08.17.22 Verified By:Shannon Smiley (Electronic Signature) Blood culture [[id number]] Collected: 08/14/22 8705 Lab Status: Final result Specimen: Blood Updated: [...] who have questions please contact the health coronary care unit nurse that requested your imaging [...] who have questions please contact the health coronary care unit nurse that requested your imaging [...] who have questions please contact the health coronary care unit nurse that requested your imaging [...] who have questions please contact the health coronary care unit nurse that requested your imaging [...] who have questions please contact the health coronary care unit nurse that requested your imaging first. Head wo Contrast (Generic) (Exam End: 08/16/2022 10:44 PM) Impression No acute intracranial abnormality and no change from prior Thank you for letting us participate in the care of this patient. If you are a health care provider and have any questions regarding this report, please contact the number below. For patients who have questions please contact the health coronary care unit nurse that requested your imaging first. Electronically signed by: Moustapha Correa MD, [facility] ([phone]), at 08/16/2022 11:19 PM XR Abdomen 1 [...] who have questions please contact the health coronary care unit nurse that requested your imaging first. Head wo Contrast (Generic) (Exam End: 08/18/2022 3:14 PM) Impression No acute intracranial process. Thank you for letting us participate in the care of this patient. If you are a health care provider and have any questions regarding this report, please contact the number below. For patients who have questions please contact the health coronary care unit nurse that requested your imaging first. Chest One View (Exam End: 08/19/2022 12:30 [...] who have questions please contact the health coronary care unit nurse that requested your imaging first. Brain wo Contrast (Exam End: 08/19/2022 10:15 PM) Impression No acute infarction, mass or mass effect. Thank you for letting us participate in the care of this patient. If you are a health care provider and have any questions regarding this report, please contact the number below. For patients who have questions please contact the health coronary care unit nurse that requested your imaging first. Chest for [...] who have questions please contact the health coronary care unit nurse that requested your imaging first. Hip w Contrast Left (Exam End: 08/20/2022 [...] who have questions please contact the health coronary care unit nurse that requested your imaging first. Chest w Contrast (Exam End: 08/20/2022 11:04 [...] who have questions please contact the health coronary care unit nurse that requested your imaging first. Hip 2-3 Views Left (Exam End: 08/22/2022 12:19 AM) Impression No radiographic evidence of infection. Thank you for letting us participate in the care of this patient. If you are a health care provider and have any questions regarding this report, please contact the number below. For patients who have questions please contact the health coronary care unit nurse that requested your imaging first. Electronically signed by: Viktor Cervantes MD, [facility] ([phone]), at 08/22/2022 12:43 PM XR Pelvis (Generic) (Exam End: 08/22/2022 12:19 AM) Impression No radiographic evidence of infection status post left hip ORIF. Thank you for letting us participate in the care of this patient. If you are a health care provider and have any questions regarding this report, please contact the number below. For patients who have questions please contact the health coronary care unit nurse that requested your imaging first. Electronically signed by: Richard Billings MD, [facility] ([phone]), at 08/22/2022 10:[address] Angiogram Coronary [...] who have questions please contact the health coronary care unit nurse that requested your imaging first. Chest wo Contrast (Generic) (Exam End: 08/27/2022 8:58 AM) Impression Stable findings of multifocal pneumonia. No interval abnormality. Thank you for letting us participate in the care of this patient. If you are a health care provider and have any questions regarding this report, please contact the number below. For patients who have questions please contact the health coronary care unit nurse that requested your imaging first. Fluoro Barium [...] who have questions please contact the health coronary care unit nurse that requested your imaging first. Fluoro Barium [...] who have questions please contact the health coronary care unit nurse that requested your imaging first. Abdomen 1 view (Generic) (Exam End: 09/04/2022 [...] who have questions please contact the health coronary care unit nurse that requested your imaging [...] who have questions please contact the health coronary care unit nurse that requested your imaging first. Chest One View (Exam End: 09/05/2022 9:24 AM) Impression 1. Reposition enteric tube now extending below the diaphragm and included ebrmy-er-glko. 2. Similar appearance of elevated right hemidiaphragm and linear/patchy bibasilar opacities which may represent atelectasis or possibly aspiration. Thank you for letting us participate in the care of this patient. If you are a health care provider and have any questions regarding this report, please contact the number below. For patients who have questions please contact the health coronary care unit nurse that requested your imaging first. Abdomen 1 view (Generic) (Exam End: 09/10/2022 [...] who have questions please contact the health coronary care unit nurse that requested your imaging first. Medications: Scheduled: ??? atorvastatin 80 mg Per [...] RD??c/b??esophagitis &??Farrell's esophagus, who was admitted to [facility] on 08/14/2022 (now on Hospital Day #23) [...] her insurance that lacks rehab coverage requiring longterm care medicaid. Her application has been submitted. 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 Page [phone] with questions/concerns Rayray Platt DO * Jigar Streeter MD - 09/12/2022 7:29 AM EDT Images from the original note were not included. Inpatient Hospital Medicine Progress Note 09/12/2022 Patient Name: ISHAN IRVING Date of : 1960 Age: 62 y.o. Hospital Admit Date: 08/14/2022 Hospital Day: 29 Inpatient Attending: Molina Flores MD PCP: Chris Stanley APRN ([phone]) ID: Ishan Irving is a 62 y.o. 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.5 years) c/b chronic pancreatitis, iron deficiency anemia, ??GERD??c/b??esophagitis &??Farrell's esophagus, who was admitted to [facility] on 08/14/2022 (now on Hospital Day #29) [...] dry, no rashes LABS: CBC: Recent Labs 09/12/22 0325 09/11/22 0405 09/10/22 0920 09/09/22 0400 09/08/22 0200 WBC 5.3 4.5 5.7 6.9 6.9 HGB 9.6* 9.0* 9.2* 9.8* 9.8* HCT 32.4* 30.2* 31.4* 33.4* 32.6* PLATELET 241 219 229 264 300 NEUTROABS 4.22 2.39 3.39 3.43 3.42 Chemistry: Recent Labs 09/12/22 0325 09/11/22 0405 09/10/22 [...] fellows interpretation Confirmed by fellow Niurka Rose ([id number]) on 09/07/2022 8:45:34 AM Confirmed by MD [...] Date/Time Lower Respiratory Culture Bronchial Alveolar Lavage [[id number]] Collected: 08/21/22 1650 Lab Status: Final result Specimen: Bronchial Alveolar Lavage Updated: 08/23/22 0741 Lower Respiratory Culture Rare mixed bacterial morphotypes suggestive of normal upper respiratory wiley Gram Stain -- Few Neutrophils seen No squamous epithelial cells seen No microorganisms seen. Fungus Culture & Calc Stain Bronchial Alveolar Lavage [[id number]] (Abnormal) Collected: 08/21/221649 Lab Status: Preliminary result Specimen: Bronchial Alveolar Lavage Updated: 08/24/22 1452 AFB culture Bronchial Alveolar Lavage [[id number]] Collected: 08/21/221649 Lab Status: Preliminary result Specimen: Bronchial Alveolar Lavage Updated: 08/24/22 2219 Acid Fast Bacilli Culture -- No Acid Fast Bacilli isolated to date If active tuberculosis is suspected, the patient should be on [employer] PRECA[employer]IONS. Call Infection Prevention for assistance if needed. Acid Fast Stain No Acid Fast Bacilli seen Fungus culture [[id number]] (Abnormal) Collected: 08/21/221649 Lab Status: Preliminary result Specimen: Bronchial Alveolar Lavage Updated: 08/24/22 145 Fungus Culture Rare Jacky albicans Calcofluor White Stain [[id number]] Collected: 08/21/221649 Lab Status: Final result Specimen: Bronchial Alveolar Lavage Updated: 08/21/222015 Calcofluor Stain Calcofluor White Preparation: Negative Lower Respiratory Culture Bronchial Alveolar Lavage [[id number]] Collected: 08/21/221644 Lab Status: Final result Specimen: Bronchial Alveolar Lavage Updated: 08/23/22 0741 Lower Respiratory Culture Rare mixed bacterial morphotypes suggestive of normal upper respiratory wiley Gram Stain -- Moderate Neutrophils seen No squamous epithelial cells seen No microorganisms seen. Fungus Culture & Calc Stain Bronchial Alveolar Lavage [[id number]] (Abnormal) Collected: 08/21/221644 Lab Status: Preliminary result Specimen: Bronchial Alveolar Lavage Updated: 08/24/22 1453 AFB culture Bronchial Alveolar Lavage [[id number]] Collected: 08/21/221644 Lab Status: Preliminary result Specimen: Bronchial Alveolar Lavage Updated: 08/24/22 2221 Acid Fast Bacilli Culture -- No Acid Fast Bacilli isolated to date If active tuberculosis is suspected, the patient should be on [employer]CA[employer]IONS. Call Infection Prevention for assistance if needed. Acid Fast Stain No Acid Fast Bacilli seen Fungus culture [[id number]] (Abnormal) Collected: 08/21/221644 Lab Status: Preliminary result Specimen: Bronchial Alveolar Lavage Updated: 08/24/22 145 Fungus Culture Rare Jacky albicans Calcofluor White Stain [[id number]] Collected: 08/21/221644 Lab Status: Final result Specimen: Bronchial Alveolar Lavage Updated: 08/21/222016 Calcofluor Stain Calcofluor White Preparation: Negative Blood culture [[id number]] Collected: 08/19/22 1720 Lab Status: Final result Specimen: Blood Updated: 08/24/22 2301 Blood Culture No growth at 5 days. Lower Respiratory Culture Sputum Induced [[id number]] Collected: 08/19/22 1451 Lab Status: Final result Specimen: Sputum Induced Updated: 08/21/22 0948 Lower Respiratory Culture Rare mixed bacterial morphotypes suggestive of normal upper respiratory wiley Gram Stain -- Many Neutrophils seen Few squamous epithelial cells seen No microorganisms seen. Blood culture [[id number]] Collected: 08/19/22 1330 Lab Status: Final result Specimen: Blood Updated: 08/24/22 1501 Blood Culture No growth at 5 days. Legionella Urinary Antigen [[id number]] Collected: 08/18/22 1013 Lab Status: Final result [...] Catheter Urine; Other; sepsis, bacteria on UA [[id number]] Collected: 08/15/22 1225 Lab Status: Final result Specimen: Indwelling Catheter Urine Updated: 08/16/22 0804 Urine Culture 1,000-9,000 cfu/ml Insignificant growth COVID-19 PCR [[id number]] Collected: 08/15/22 1150 Lab Status: Final result [...] using the Simplexa COVID-19 Direct Assay by [employer] as authorized by the FDA issued Emergency [...] Department of Pathology and Laboratory Medicine at [facility], certified under the Clinical Laboratory Improvement Amendments [...] fact sheets at the following FDA website: https://www.fda.gov/medical-devices/ezhedksqfxu-diorphe-4478-llsxt-07-blqskhwbz- uyw-zpvbfqtuoifycr-vsxihqy-devices/azokd-vjkhwhteyij-boys SARS-CoV-2 Source TRAIN GATE ATTENDANT Swab Lower Respiratory Culture Sputum Induced [[id number]] Collected: 08/15/22 0740 Lab Status: Final result Specimen: Sputum Induced Updated: 08/17/22 1015 Lower Respiratory Culture Rare normal upper respiratory wiley Gram Stain -- Many Neutrophils Few squamous epithelial cells Rare mixed bacterial morphotypes suggestive of normal upper respiratory wiley Blood culture [[id number]] Collected: 08/15/22 0110 Lab Status: Final result Specimen: Blood Updated: 08/20/22 0701 Blood Culture No growth at 5 days. MRSA PCR Screen ([facility]/APD/[facility]) [[id number]] Collected: 08/15/22 0050 Lab Status: Final result Specimen: Nasopharyngeal Swab Updated: 08/17/22 1419 MRSA Result Negative MRSA Interp -- Methicillin-resistant Staphylococcus aureus (MRSA) is NOT DETECTED The MRSA target DNA sequences (mec and SCC) were not detected within the acceptable ranges using the Xpert MRSA NxG on the GeneXpert Dx System ([employer]). This suggests the absence of MRSA in the patient specimen submitted for testing. This test is cleared by the U.S. Food and Drug Administration for clinical use and its performance characteristics have been verified by the [facility] at [facility]. This result does not rule out the presence of any other organisms. Rare false negative results may occur if MRSA is present at low concentrations with much higher concentrations of other organisms including MRSE or S. aureus with an empty SCC cassette. Comment: [VERIFIED DATE]08.17.22 Verified By:Shannon Smiley (Electronic Signature) Blood culture [[id number]] Collected: 08/14/22 2355 Lab Status: Final result [...] who have questions please contact the health coronary care unit nurse that requested your imaging [...] who have questions please contact the health coronary care unit nurse that requested your imaging [...] who have questions please contact the health coronary care unit nurse that requested your imaging [...] who have questions please contact the health coronary care unit nurse that requested your imaging [...] who have questions please contact the health coronary care unit nurse that requested your imaging first. Head wo Contrast (Generic) (Exam End: 08/16/2022 10:44 PM) Impression No acute intracranial abnormality and no change from prior Thank you for letting us participate in the care of this patient. If you are a health care provider and have any questions regarding this report, please contact the number below. For patients who have questions please contact the health coronary care unit nurse that requested your imaging first. Electronically signed by: Moustapha Correa MD, [facility] ([phone]), at 08/16/2022 11:19 PM XR Abdomen 1 [...] who have questions please contact the health coronary care unit nurse that requested your imaging first. Head wo Contrast (Generic) (Exam End: 08/18/2022 3:14 PM) Impression No acute intracranial process. Thank you for letting us participate in the care of this patient. If you are a health care provider and have any questions regarding this report, please contact the number below. For patients who have questions please contact the health coronary care unit nurse that requested your imaging first. Chest One View (Exam End: 08/19/2022 12:30 [...] who have questions please contact the health coronary care unit nurse that requested your imaging first. Brain wo Contrast (Exam End: 08/19/2022 10:15 PM) Impression No acute infarction, mass or mass effect. Thank you for letting us participate in the care of this patient. If you are a health care provider and have any questions regarding this report, please contact the number below. For patients who have questions please contact the health coronary care unit nurse that requested your imaging first. Chest for [...] who have questions please contact the health coronary care unit nurse that requested your imaging first. Hip w Contrast Left (Exam End: 08/20/2022 [...] who have questions please contact the health coronary care unit nurse that requested your imaging first. Chest w Contrast (Exam End: 08/20/2022 11:04 [...] who have questions please contact the health coronary care unit nurse that requested your imaging first. Hip 2-3 Views Left (Exam End: 08/22/2022 12:19 AM) Impression No radiographic evidence of infection. Thank you for letting us participate in the care of this patient. If you are a health care provider and have any questions regarding this report, please contact the number below. For patients who have questions please contact the health coronary care unit nurse that requested your imaging first. Electronically signed by: Viktor Cervantes MD, [facility] ([phone]), at 08/22/2022 12:43 PM XR Pelvis (Generic) (Exam End: 08/22/2022 12:19 AM) Impression No radiographic evidence of infection status post left hip ORIF. Thank you for letting us participate in the care of this patient. If you are a health care provider and have any questions regarding this report, please contact the number below. For patients who have questions please contact the health coronary care unit nurse that requested your imaging first. Electronically signed by: Richard Billings MD, [facility] ([phone]), at 08/22/2022 10:[address] Angiogram Coronary [...] who have questions please contact the health coronary care unit nurse that requested your imaging first. Chest wo Contrast (Generic) (Exam End: 08/27/2022 8:58 AM) Impression Stable findings of multifocal pneumonia. No interval abnormality. Thank you for letting us participate in the care of this patient. If you are a health care provider and have any questions regarding this report, please contact the number below. For patients who have questions please contact the health coronary care unit nurse that requested your imaging first. Fluoro Barium [...] who have questions please contact the health coronary care unit nurse that requested your imaging first. Fluoro Barium [...] who have questions please contact the health coronary care unit nurse that requested your imaging first. Abdomen 1 view (Generic) (Exam End: 09/04/2022 [...] who have questions please contact the health coronary care unit nurse that requested your imaging [...] who have questions please contact the health coronary care unit nurse that requested your imaging first. Chest One View (Exam End: 09/05/2022 9:24 AM) Impression 1. Reposition enteric tube now extending below the diaphragm and included mwulw-ve-owpe. 2. Similar appearance of elevated right hemidiaphragm and linear/patchy bibasilar opacities which may represent atelectasis or possibly aspiration. Thank you for letting us participate in the care of this patient. If you are a health care provider and have any questions regarding this report, please contact the number below. For patients who have questions please contact the health coronary care unit nurse that requested your imaging first. Abdomen 1 view (Generic) (Exam End: 09/10/2022 [...] who have questions please contact the health coronary care unit nurse that requested your imaging first. Medications: Scheduled: ??? atorvastatin 80 mg Per [...] RD??c/b??esophagitis &??Farrell's esophagus, who was admitted to [facility] on 08/14/2022 (now on Hospital Day #23) [...] believe refeeding is likely. Nonetheless will recheck imanites later this afternoon after feeds via the G tube are initiated. She will be medically ready after a consistent tube feed regimen is established, likely in the next 1-2 days. Will need to additionally adjust her insulin regimen as appropriate for her tube feed regimen. Unfortunately her dispo is complicated by her insurance that lacks rehab coverage requiring exterminator care medicaid. Her application has been submitted. Today's plan: - restart tube feeds via G tube - transition medications to G tube - adjust insulin regimen as appropriate and monitor for refeeding syndrome # Bipolar Disorder - Continue Seroquel 100mg nightly - C/w valproate 300mg q6h - INSTANT POWDER SUPERVISOR following, NPO at present - Psychiatry [...] Medicine PGY2 Medicine Team: Jose Juan, Pager #[phone] Date: 09/12/2022 Associated attestation - Chong Chao MD - 09/12/2022 9:10 PM EDT Hospital Medicine Service Attending Documentation I certify that I am a D-H credentialed attending provider with admitting privileges and that the patient meets or has met medical necessity to require an inpatient IPI level of care meeting a minimumof two midnights or is on the [facility] inpatient only procedure list (status C) due [...] bipolar, DM, EtOH, esophagitis, who presented to [facility] 3 days ago after being found unresponsive at home.?Patient found to have likely pneumonia+/- aspiration, newly reduced EF. Reason for intervention: Follow up Nutrition Recommendations: ?? S/p PEG placement, resume current TF: Cyclic Peptamen AF??at 90ml/hr for 14 hrs from [id number] (pended). At goal, this will provide: Peptamen [...] p.o. Intake, etc. ?? Po diet per INSTANT POWDER SUPERVISOR (recs 09/04 NPO s/p MBS) ?? Continue 50,000 units vitamin D weekly; 1000 mcg folic acid and 100 mg thiamine daily. ?? Off unit in IR for PEG placement at time of my visit. THANKS Wilda Blankenship RD Pager #:[phone] * Mary Penny RN - 09/11/2022 1:35 PM EDT Called to see Ishan Irving who is a 62 y.o., female by nursing supervisor accounting clerks RM at the requestof charge nurse on unit. Referring provider: Chau Keith MD Date of Referral: 09/10 (unable to get done 09/10 therefore done 09/11) for a small bore insertion team consult. Admission Date/Time: 08/14/22 Hospital Day:28 Admitting Diagnosis:shock, multifocal pneumonia, and a newly reduced LVEF. Ordering Physician: Chau Keith MD Indication:Tube feeding, emergency medicine physician Weighted or Not Weighted: weighted Ordered destination: [...] Alicia Gillis - 09/11/2022 11:10 AM EDTSumemanuely: [employer]lee[employer] Medicaid [place] [facility] application (Form 202LTC) completed on 09/11/2022 Authorized School Commissioner Form (Form 139REP) completed and designated to Antonio Irving and Alicia Gillis Copy made of all application documents. Statement of Understand for Choices for Care Senior Living Medicaid provided to patient/family. Submitted all documents to [place] DCF/ESD Application and Document Processing Center via [place]'s [employer] on 09/11/2022 for submission and processing. Anticipated Timeline: ??? LTC application should be acknowledged by [place]'s Department of [place] Health Access and Disabilities, Aging and Independent Living ([facility]) within 1-10 business days dependent on method of the application's submission. ??? Then, the [facility] outside energy sales representatives aka [facility] RN assigned will contact [facility] to request clinicaldocumentation to submit to them for the clinical assessment they will complete. ??? The results from the clinical assessment by the [facility] RN assigned will be forwarded to the [facility] Financial Stem Teacher (FBS) assigned to conduct the application intake process with date & time for the mandatory Phone Eligibility Interview. ??? Next, the FBS will conduct the intake interview with the applicant or applicant's Authorized School Commissioner and generate a list of proofs or verifications required for [facility] to move through the application process [...] applicant's application is financially and medicallycleared by [facility] at the time the applicant has been discharged from [facility] for which outcomes can vary between 1 to 4 months based on individual case complexities. * Alicia Glez OTA - 09/11/2022 10:50 AM EDT Occupational Therapy Treatment Note Treatment Number OT: 5 Patient Dx: Ishan Irving??is a 62 y.o.??female??admitted on 08/14/2022??with a medical history notable for??recent L femoral neck fracture,??bipolar disorder, resolving medication-induced Parkinsonism, insulin- dependent diabetes mellitus,??hx of alcohol use disorder (reported to be in remission for 1.5 years) c/b chronic pancreatitis, iron deficiency anemia,??GERD??c/b??esophagitis &??Farrell's esophagus??presenting in transfer from [facility], suspected to be in cardiogenic shock [...] Therapy: 48 (x2 schm, x1 thera act [id number]) Pager: [phone] DANIELA Montes 09/11/2022 Occupational Therapy Rehabilitation Department * Briana Bryant, INSTANT POWDER SUPERVISOR - 09/11/2022 10:13 AM EDT Speech-Language Pathology Consult Note Ishan Irving is a 62 year old female with a medical history notable for??recent L femoral neck fracture,??bipolar disorder, resolving medication- induced Parkinsonism, insulin-dependent diabetesmellitus,??hx of alcohol use disorder (reported to be in remission for 1.5 years) c/b chronic pancreatitis, iron deficiency anemia,??GERD??c/b??esophagitis &??Farrell's esophagus??presenting in transfer from [facility]??on 08/14/2022, suspected to be in cardiogenic shock and found to be in mixed shock with concern for stress cardiomyopathy.??INSTANT POWDER SUPERVISOR following for swallow, cognitive tx. MBS [...] placement as well as GJ tube placement. INSTANT POWDER SUPERVISOR team has been following pt for dysphagia in ICU. Transferred to floor on 09/07/22. INSTANT POWDER SUPERVISOR have been unable to work w/ [...] passes in mean time as per RN.. INSTANT POWDER SUPERVISOR team will continue to monitor. Briana Bryant MA [facility]-INSTANT POWDER SUPERVISOR Inpatient Rehabilitation Medicine pager:# [phone] * Chau Keith MD - 09/11/2022 6:15 AM EDT Images from the original note were not included. Inpatient Hospital Medicine Progress Note 09/11/2022 Patient Name: ISHAN IRVING Date of : 1960 Age: 62 y.o. Hospital Admit Date: 08/14/2022 Hospital Day: 28 Inpatient Attending: Molina Flores MD PCP: Chris Stanley APRN ([phone]) ID: Ishan Irving is a 62 y.o. 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.5 years) c/b chronic pancreatitis, iron deficiency anemia, ??GERD??c/b??esophagitis &??Farrell's esophagus, who was admitted to [facility] on 08/14/2022 (now on Hospital Day #28) [...] HA1C 6.2* CRP, Sed Rate Recent Labs 04/14/23 1200 CRP 19.4* SEDRATE >119* Lipids: Lab [...] fellows interpretation Confirmed by fellow Niurka Rose ([id number]) on 09/07/2022 8:45:34 AM Confirmed by MD [...] Date/Time Lower Respiratory Culture Bronchial Alveolar Lavage [[id number]] Collected: 08/21/221649 Lab Status: Final result Specimen: Bronchial Alveolar Lavage Updated: 08/23/22 0741 Lower Respiratory Culture Rare mixed bacterial morphotypes suggestive of normal upper respiratory wiley Gram Stain -- Few Neutrophils seen No squamous epithelial cells seen No microorganisms seen. Fungus Culture & Calc Stain Bronchial Alveolar Lavage [[id number]] (Abnormal) Collected: 08/21/221649 Lab Status: Preliminary result Specimen: Bronchial Alveolar Lavage Updated: 08/24/22 1452 AFB culture Bronchial Alveolar Lavage [[id number]] Collected: 08/21/221649 Lab Status: Preliminary result Specimen: Bronchial Alveolar Lavage Updated: 08/24/22 2219 Acid Fast Bacilli Culture -- No Acid Fast Bacilli isolated to date If active tuberculosis is suspected, the patient should be on [employer] PRECAUTIONS. Call Infection Prevention for assistance if needed. Acid Fast Stain No Acid Fast Bacilli seen Fungus culture [[id number]] (Abnormal) Collected: 08/21/22 165 Lab Status: Preliminary result Specimen: Bronchial Alveolar Lavage Updated: 08/24/22 145 Fungus Culture Rare Jacky albicans Calcofluor White Stain [[id number]] Collected: 08/21/221649 Lab Status: Final result Specimen: Bronchial Alveolar Lavage Updated: 08/21/222015 Calcofluor Stain Calcofluor White Preparation: Negative Lower Respiratory Culture Bronchial Alveolar Lavage [[id number]] Collected: 08/21/221644 Lab Status: Final result Specimen: Bronchial Alveolar Lavage Updated: 08/23/22 0741 Lower Respiratory Culture Rare mixed bacterial morphotypes suggestive of normal upper respiratory wiley Gram Stain -- Moderate Neutrophils seen No squamous epithelial cells seen No microorganisms seen. Fungus Culture & Calc Stain Bronchial Alveolar Lavage [[id number]] (Abnormal) Collected: 08/21/221644 Lab Status: Preliminary result Specimen: Bronchial Alveolar Lavage Updated: 08/24/22 145 AFB culture Bronchial Alveolar Lavage [[id number]] Collected: 08/21/221644 Lab Status: Preliminary result Specimen: Bronchial Alveolar Lavage Updated: 08/24/22 222 Acid Fast Bacilli Culture -- No Acid Fast Bacilli isolated to date If active tuberculosis is suspected, the patient should be on [employer] PRECAUTIONS. Call Infection Prevention for assistance if needed. Acid Fast Stain No Acid Fast Bacilli seen Fungus culture [[id number]] (Abnormal) Collected: 08/21/22 164 Lab Status: Preliminary result Specimen: Bronchial Alveolar Lavage Updated: 08/24/22 145 Fungus Culture Rare Jacky albicans Calcofluor White Stain [[id number]] Collected: 08/21/221644 Lab Status: Final result Specimen: Bronchial Alveolar Lavage Updated: 08/21/222016 Calcofluor Stain Calcofluor White Preparation: Negative Blood culture [[id number]] Collected: 08/19/22 1720 Lab Status: Final result Specimen: Blood Updated: 08/24/22 2301 Blood Culture No growth at 5 days. Lower Respiratory Culture Sputum Induced [[id number]] Collected: 08/19/22 1451 Lab Status: Final result Specimen: Sputum Induced Updated: 08/21/22 0948 Lower Respiratory Culture Rare mixed bacterial morphotypes suggestive of normal upper respiratory wiley Gram Stain -- Many Neutrophils seen Few squamous epithelial cells seen No microorganisms seen. Blood culture [[id number]] Collected: 08/19/22 1330 Lab Status: Final result Specimen: Blood Updated: 08/24/22 1501 Blood Culture No growth at 5 days. Legionella Urinary Antigen [[id number]] Collected: 08/18/22 1013 Lab Status: Final result [...] Catheter Urine; Other; sepsis, bacteria on UA [[id number]] Collected: 08/15/22 1225 Lab Status: Final result Specimen: Indwelling Catheter Urine Updated: 08/16/22 0804 Urine Culture 1,000-9,000 cfu/ml Insignificant growth COVID-19 PCR [[id number]] Collected: 08/15/22 1150 Lab Status: Final result [...] using the Simplexa COVID-19 Direct Assay by [employer] as authorized by the FDA issued Emergency [...] Department of Pathology and Laboratory Medicine at [facility], certified under the Clinical Laboratory Improvement Amendments [...] fact sheets at the following FDA website: https://www.fda.gov/medical-devices/gwhsynisltj-eneyaej-1389-sxwdf-55-pwwhtorfc- qgs-cjhfaxodhkoyoc-rqrrapq-devices/rkyre-xuxfsdrrwku-hhca SARS-CoV-2 Source TRAIN GATE ATTENDANT Swab Lower Respiratory Culture Sputum Induced [[id number]] Collected: 08/15/22 0740 Lab Status: Final result Specimen: Sputum Induced Updated: 08/17/22 1015 Lower Respiratory Culture Rare normal upper respiratory wiley Gram Stain -- Many Neutrophils Few squamous epithelial cells Rare mixed bacterial morphotypes suggestive of normal upper respiratory wiley Blood culture [[id number]] Collected: 08/15/22 0110 Lab Status: Final result Specimen: Blood Updated: 08/20/22 0701 Blood Culture No growth at 5 days. MRSA PCR Screen ([facility]CGP/APD/NLH) [[id number]] Collected: 08/15/22 0050 Lab Status: Final result Specimen: Nasopharyngeal Swab Updated: 08/17/22 1419 MRSA Result Negative MRSA Interp -- Methicillin-resistant Staphylococcus aureus (MRSA) is NOT DETECTED The MRSA target DNA sequences (mec and SCC) were not detected within the acceptable ranges using the Xpert MRSA NxG on the GeneXpert Dx System ([employer]). This suggests the absence of MRSA in the patient specimen submitted for testing. This test is cleared by the U.S. Food and Drug Administration for clinical use and its performance characteristics have been verified by the [facility] at [facility]. This result does not rule out the presence of any other organisms. Rare false negative results may occur if MRSA is present at low concentrations with much higher concentrations of other organisms including MRSE or S. aureus with an empty SCC cassette. Comment: [VERIFIED DATE]08.17.22 Verified By:Shannon Smiley (Electronic Signature) Blood culture [[id number]] Collected: 08/14/22 2559 Lab Status: Final result Specimen: Blood Updated: [...] who have questions please contact the health coronary care unit nurse that requested your imaging [...] who have questions please contact the health coronary care unit nurse that requested your imaging [...] who have questions please contact the health coronary care unit nurse that requested your imaging [...] who have questions please contact the health coronary care unit nurse that requested your imaging [...] who have questions please contact the health coronary care unit nurse that requested your imaging first. Head wo Contrast (Generic) (Exam End: 08/16/2022 10:44 PM) Impression No acute intracranial abnormality and no change from prior Thank you for letting us participate in the care of this patient. If you are a health care provider and have any questions regarding this report, please contact the number below. For patients who have questions please contact the health coronary care unit nurse that requested your imaging first. Electronically signed by: Moustapha Correa MD, [facility] ([phone]), at 08/16/2022 11:19 PM XR Abdomen 1 [...] who have questions please contact the health coronary care unit nurse that requested your imaging first. Head wo Contrast (Generic) (Exam End: 08/18/2022 3:14 PM) Impression No acute intracranial process. Thank you for letting us participate in the care of this patient. If you are a health care provider and have any questions regarding this report, please contact the number below. For patients who have questions please contact the health coronary care unit nurse that requested your imaging first. Chest One View (Exam End: 08/19/2022 12:30 [...] who have questions please contact the health coronary care unit nurse that requested your imaging first. Brain wo Contrast (Exam End: 08/19/2022 10:15 PM) Impression No acute infarction, mass or mass effect. Thank you for letting us participate in the care of this patient. If you are a health care provider and have any questions regarding this report, please contact the number below. For patients who have questions please contact the health coronary care unit nurse that requested your imaging first. Chest for [...] who have questions please contact the health coronary care unit nurse that requested your imaging first. Hip w Contrast Left (Exam End: 08/20/2022 [...] who have questions please contact the health coronary care unit nurse that requested your imaging first. Chest w Contrast (Exam End: 08/20/2022 11:04 [...] who have questions please contact the health coronary care unit nurse that requested your imaging first. Hip 2-3 Views Left (Exam End: 08/22/2022 12:19 AM) Impression No radiographic evidence of infection. Thank you for letting us participate in the care of this patient. If you are a health care provider and have any questions regarding this report, please contact the number below. For patients who have questions please contact the health coronary care unit nurse that requested your imaging first. Electronically signed by: Viktor Cervantes MD, [facility] ([phone]), at 08/22/2022 12:43 PM XR Pelvis (Generic) (Exam End: 08/22/2022 12:19 AM) Impression No radiographic evidence of infection status post left hip ORIF. Thank you for letting us participate in the care of this patient. If you are a health care provider and have any questions regarding this report, please contact the number below. For patients who have questions please contact the health coronary care unit nurse that requested your imaging first. Electronically signed by: Richard Billings MD, [facility] ([phone]), at 08/22/2022 10:[address] Angiogram Coronary [...] who have questions please contact the health coronary care unit nurse that requested your imaging first. Chest wo Contrast (Generic) (Exam End: 08/27/2022 8:58 AM) Impression Stable findings of multifocal pneumonia. No interval abnormality. Thank you for letting us participate in the care of this patient. If you are a health care provider and have any questions regarding this report, please contact the number below. For patients who have questions please contact the health coronary care unit nurse that requested your imaging first. Fluoro Barium [...] who have questions please contact the health coronary care unit nurse that requested your imaging first. Fluoro Barium [...] who have questions please contact the health coronary care unit nurse that requested your imaging first. Abdomen 1 view (Generic) (Exam End: 09/04/2022 [...] who have questions please contact the health coronary care unit nurse that requested your imaging [...] who have questions please contact the health coronary care unit nurse that requested your imaging first. Chest One View (Exam End: 09/05/2022 9:24 AM) Impression 1. Reposition enteric tube now extending below the diaphragm and included [id number]. 2. Similar appearance of elevated right hemidiaphragm and linear/patchy bibasilar opacities which may represent atelectasis or possibly aspiration. Thank you for letting us participate in the care of this patient. If you are a health care provider and have any questions regarding this report, please contact the number below. For patients who have questions please contact the health coronary care unit nurse that requested your imaging first. Abdomen 1 view (Generic) (Exam End: 09/10/2022 [...] who have questions please contact the health coronary care unit nurse that requested your imaging first. Medications: Scheduled: ??? potassium chloride 10 mEq [...] RD??c/b??esophagitis &??Farrell's esophagus, who was admitted to [facility] on 08/14/2022 (now on Hospital Day #23) [...] that she should continue to work with PT/OT/INSTANT POWDER SUPERVISOR/nursing but that the most recent assessments [...] discharge - C/w valproate 300mg q6h - INSTANT POWDER SUPERVISOR following, NPO at present - Psychiatry [...] Medicine PGY1 Medicine Team: Jose Juan, Pager #[phone] Date: 09/11/2022 Associated attestation - Molina Flores [...] of two midnights or is on the [facility] inpatient only procedure list (status C) due [...] with the ICU nurses. * Duncan Almaguer, RN - 09/10/2022 6:06 PM EDT OUTCOME [...] PLAN GOAL OUTCOME EVALUATION: * Briana Bryant, INSTANT POWDER SUPERVISOR - 09/10/2022 12:44 PM EDT Speech Therapy Note Patient Profile:??Ishan Irving is a 62 year old female with a medical history notable for??recent L femoral neck fracture,??bipolar disorder, resolving medication-induced Parkinsonism, insulin-dependent diabetes mellitus,??hx of alcohol use disorder (reported to be in remission for 1.5 years)c/b chronic pancreatitis, iron deficiency anemia,??GERD??c/b??esophagitis &??Farrell's esophagus??presenting in transfer from [facility]on 08/14/2022, suspected to be in cardiogenic shock and found to be in mixed shock with concern for stress cardiomyopathy.??INSTANT POWDER SUPERVISOR following for swallow, cognitive tx. MBS [...] x1 of 8 ice chip trials w/ INSTANT POWDER SUPERVISOR; refer to Gastroenterology note for further information. Education: Pt educated on results and recommendations, discussed with nursing. Assessment: Pt was seen today for a follow-up INSTANT POWDER SUPERVISOR visit. Pt w/ ongoing moderate- severe [...] assist from??staff as needed Plan: Therapy Frequency (INSTANT POWDER SUPERVISOR Eval): 2-4 times/wk Pt./family are in agreement with treatment plan. Total Minutes (Speech Language Pathology): 12 Thank you for this consult with this patient. Please feel free to message me with any questions or concerns. Sari Juarez. Physician Underwriter Clinician Speech-Language Pathology Patient status, treatment interventions, and goals discussed with student. I am in agreement with note as documented and was present for all aspects of the patient treatment session. Briana Bryant MA, CCC-INSTANT POWDER SUPERVISOR Pager: [phone] Speech-Language Pathology Inpatient Rehabilitation Medicine * Marybeth Shelley RN - 09/10/2022 11:29 AM EDTSummary: [facility] Medicaid Referral Identification of Senior Living Care Medicaid insurance coverage IS required to facilitate this hospital discharge and was determined due to the following circumstances: Patient is in need of rehab at discharge prior to returning home with . Current insurance plan is [place] Medicaid Primary Care Plus, this plan does not have rehab coverage. Confirmed with spouse that they DO NOT have [employer] [place] coverage for [place] residents or [employer] [place] coverage for [place] residents and that an application for these specific Senior Living Care Medicaid programs HAVE NOT been submitted to their State of Residence to date for enrollment. Conversation with patient and/or patient advocate regarding the need for [employer] [facility] Medicaid insurance coverage was conducted on 09/10/2022 and a referral has been made to the Care Management [employer] for Senior Living Care Medicaid insurance assistance and/or enrollment on 09/10/2022. Marybeth Shelley RN, BSN Corporate Travel Coordinator - Medicine Office of Care Management Office: Pager: [phone] * Minh Cantu MD - 09/10/2022 11:00 [...] RD??c/b??esophagitis &??Farrell's esophagus, who was admitted to [facility] on 08/14/2022 (now on Hospital Day #21), [...] with Dr. Isidro Cantu MD 09/10/2022 * Juvenal Trell Johanny, PT - 09/10/2022 9:41 AM EDT Physical [...] deficiency anemia,??GERD??c/b??esophagitis &??Farrell's esophagus??presenting in transfer from [facility], suspected to be in cardiogenic shock and found to be in mixed shock with concern for stress cardiomyopathy. She is s/p ORIF left femoral neck fracture ~ 08/08 at OSH. Interval History: Transferred to [facility], attempted PEG placement 09/09, unsuccessful d/t esophageal [...] the current findings, Anticipated Discharge Disposition (PT[facility] medically ready for hospital discharge. [...] plan as stated. Time IN / OUT: 8908-0634 Total Minutes, Physical Therapy: 42 Billing Code: TA x3 Trell Sanford PT, DPT Pager: [phone] Physical Therapy Inpatient Rehabilitation Department * Lucia [...] Last revised on 03/10/22 #3, per recent INSTANT POWDER SUPERVISOR note on 09/04 - Addendum: INSTANT POWDER SUPERVISOR returned to pt's room at 1230 [...] and agreement with thetreatment plan and informed INSTANT POWDER SUPERVISOR of her continued goal to resume [...] Molina Flores MD PCP: Chris Stanley APRN ([phone]) ID: Ishan Irving is a 62 y.o. 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.5 years) c/b chronic pancreatitis, iron deficiency anemia, ??GERD??c/b??esophagitis &??Farrell's esophagus, who was admitted to [facility] on 08/14/2022 (now on Hospital Day #27) [...] fellows interpretation Confirmed by fellow Niurka Rose ([id number]) on 09/07/2022 8:45:34 AM Confirmed by MD [...] Date/Time Lower Respiratory Culture Bronchial Alveolar Lavage [[id number]] Collected: 08/21/22 1650 Lab Status: Final result Specimen: Bronchial Alveolar Lavage Updated: 08/23/22 0741 Lower Respiratory Culture Rare mixed bacterial morphotypes suggestive of normal upper respiratory wiley Gram Stain -- Few Neutrophils seen No squamous epithelial cells seen No microorganisms seen. Fungus Culture & Calc Stain Bronchial Alveolar Lavage [[id number]] (Abnormal) Collected: 08/21/22 165 Lab Status: Preliminary result Specimen: Bronchial Alveolar Lavage Updated: 08/24/22 1452 AFB culture Bronchial Alveolar Lavage [[id number]] Collected: 08/21/221649 Lab Status: Preliminary result Specimen: Bronchial Alveolar Lavage Updated: 08/24/22 2219 Acid Fast Bacilli Culture -- No Acid Fast Bacilli isolated to date If active tuberculosis is suspected, the patient should be on [employer] PRECAUTIONS. Call Infection Prevention for assistance if needed. Acid Fast Stain No Acid Fast Bacilli seen Fungus culture [[id number]] (Abnormal) Collected: 08/21/221649 Lab Status: Preliminary result Specimen: Bronchial Alveolar Lavage Updated: 08/24/22 1452 Fungus Culture Rare Jacky albicans Calcofluor White Stain [[id number]] Collected: 08/21/221649 Lab Status: Final result Specimen: Bronchial Alveolar Lavage Updated: 08/21/222015 Calcofluor Stain Calcofluor White Preparation: Negative Lower Respiratory Culture Bronchial Alveolar Lavage [[id number]] Collected: 08/21/221644 Lab Status: Final result Specimen: Bronchial Alveolar Lavage Updated: 08/23/22 0741 Lower Respiratory Culture Rare mixed bacterial morphotypes suggestive of normal upper respiratory wiley Gram Stain -- Moderate Neutrophils seen No squamous epithelial cells seen No microorganisms seen. Fungus Culture & Calc Stain Bronchial Alveolar Lavage [[id number]] (Abnormal) Collected: 08/21/221644 Lab Status: Preliminary result Specimen: Bronchial Alveolar Lavage Updated: 08/24/22 1453 AFB culture Bronchial Alveolar Lavage [[id number]] Collected: 08/21/221644 Lab Status: Preliminary result Specimen: Bronchial Alveolar Lavage Updated: 08/24/22 2221 Acid Fast Bacilli Culture -- No Acid Fast Bacilli isolated to date If active tuberculosis is suspected, the patient should be on [employer] PRECAUTIONS. Call Infection Prevention for assistance if needed. Acid Fast Stain No Acid Fast Bacilli seen Fungus culture [[id number]] (Abnormal) Collected: 08/21/221644 Lab Status: Preliminary result Specimen: Bronchial Alveolar Lavage Updated: 08/24/22 145 Fungus Culture Rare Jacky albicans Calcofluor White Stain [[id number]] Collected: 08/21/221644 Lab Status: Final result Specimen: Bronchial Alveolar Lavage Updated: 08/21/22 2017 Calcofluor Stain Calcofluor White Preparation: Negative Blood culture [[id number]] Collected: 08/19/22 1720 Lab Status: Final result Specimen: Blood Updated: 08/24/22 2301 Blood Culture No growth at 5 days. Lower Respiratory Culture Sputum Induced [[id number]] Collected: 08/19/22 1451 Lab Status: Final result Specimen: Sputum Induced Updated: 08/21/22 0948 Lower Respiratory Culture Rare mixed bacterial morphotypes suggestive of normal upper respiratory wiley Gram Stain -- Many Neutrophils seen Few squamous epithelial cells seen No microorganisms seen. Blood culture [[id number]] Collected: 08/19/22 1330 Lab Status: Final result Specimen: Blood Updated: 08/24/22 1501 Blood Culture No growth at 5 days. Legionella Urinary Antigen [[id number]] Collected: 08/18/22 1013 Lab Status: Final result [...] Catheter Urine; Other; sepsis, bacteria on UA [[id number]] Collected: 08/15/22 1225 Lab Status: Final result Specimen: Indwelling Catheter Urine Updated: 08/16/22 0804 Urine Culture 1,000-9,000 cfu/ml Insignificant growth COVID-19 PCR [[id number]] Collected: 08/15/22 1150 Lab Status: Final result [...] using the Simplexa COVID-19 Direct Assay by [employer] as authorized by the FDA issued Emergency [...] Department of Pathology and Laboratory Medicine at [facility], certified under the Clinical Laboratory Improvement Amendments [...] fact sheets at the following FDA website: https://www.fda.gov/medical-devices/mknedmgerxa-lzaymgx-3821-jleej-26-ldlrkchuj- nyn-piuoyarmdfxcpl-cncirhk-devices/qqpwp-pmzdgrpwobx-bxqx SARS-CoV-2 Source TRAIN GATE ATTENDANT Swab Lower Respiratory Culture Sputum Induced [[id number]] Collected: 08/15/22 0740 Lab Status: Final result Specimen: Sputum Induced Updated: 08/17/22 1015 Lower Respiratory Culture Rare normal upper respiratory wiley Gram Stain -- Many Neutrophils Few squamous epithelial cells Rare mixed bacterial morphotypes suggestive of normal upper respiratory wiley Blood culture [[id number]] Collected: 08/15/22 0110 Lab Status: Final result Specimen: Blood Updated: 08/20/22 0701 Blood Culture No growth at 5 days. MRSA PCR Screen ([facility]/APD/NLH) [[id number]] Collected: 08/15/22 0050 Lab Status: Final result Specimen: Nasopharyngeal Swab Updated: 08/17/22 1419 MRSA Result Negative MRSA Interp -- Methicillin-resistant Staphylococcus aureus (MRSA) is NOT DETECTED The MRSA target DNA sequences (mec and SCC) were not detected within the acceptable ranges using the Xpert MRSA NxG on the GeneXpert Dx System ([employer]). This suggests the absence of MRSA in the patient specimen submitted for testing. This test is cleared by the U.S. Food and Drug Administration for clinical use and its performance characteristics have been verified by the [facility] at [facility]. This result does not rule out the presence of any other organisms. Rare false negative results may occur if MRSA is present at low concentrations with much higher concentrations of other organisms including MRSE or S. aureus with an empty SCC cassette. Comment: [VERIFIED DATE]08.17.22 Verified By:Shannon Smiley (Electronic Signature) Blood culture [[id number]] Collected: 08/14/22 2355 Lab Status: Final result [...] who have questions please contact the health coronary care unit nurse that requested your imaging [...] who have questions please contact the health coronary care unit nurse that requested your imaging [...] who have questions please contact the health coronary care unit nurse that requested your imaging [...] who have questions please contact the health coronary care unit nurse that requested your imaging [...] who have questions please contact the health coronary care unit nurse that requested your imaging first. Head wo Contrast (Generic) (Exam End: 08/16/2022 10:44 PM) Impression No acute intracranial abnormality and no change from prior Thank you for letting us participate in the care of this patient. If you are a health care provider and have any questions regarding this report, please contact the number below. For patients who have questions please contact the health coronary care unit nurse that requested your imaging first. Electronically signed by: Moustapha Correa MD, [facility] ([phone]), at 08/16/2022 11:19 PM XR Abdomen 1 [...] who have questions please contact the health coronary care unit nurse that requested your imaging first. Head wo Contrast (Generic) (Exam End: 08/18/2022 3:14 PM) Impression No acute intracranial process. Thank you for letting us participate in the care of this patient. If you are a health care provider and have any questions regarding this report, please contact the number below. For patients who have questions please contact the health coronary care unit nurse that requested your imaging first. Chest One View (Exam End: 08/19/2022 12:30 [...] who have questions please contact the health coronary care unit nurse that requested your imaging first. Brain wo Contrast (Exam End: 08/19/2022 10:15 PM) Impression No acute infarction, mass or mass effect. Thank you for letting us participate in the care of this patient. If you are a health care provider and have any questions regarding this report, please contact the number below. For patients who have questions please contact the health coronary care unit nurse that requested your imaging first. Chest for [...] who have questions please contact the health coronary care unit nurse that requested your imaging first. Hip w Contrast Left (Exam End: 08/20/2022 [...] who have questions please contact the health coronary care unit nurse that requested your imaging first. Chest w Contrast (Exam End: 08/20/2022 11:04 [...] who have questions please contact the health coronary care unit nurse that requested your imaging first. Hip 2-3 Views Left (Exam End: 08/22/2022 12:19 AM) Impression No radiographic evidence of infection. Thank you for letting us participate in the care of this patient. If you are a health care provider and have any questions regarding this report, please contact the number below. For patients who have questions please contact the health coronary care unit nurse that requested your imaging first. Electronically signed by: Viktor Cervantes MD, [facility] ([phone]), at 08/22/2022 12:43 PM XR Pelvis (Generic) (Exam End: 08/22/2022 12:19 AM) Impression No radiographic evidence of infection status post left hip ORIF. Thank you for letting us participate in the care of this patient. If you are a health care provider and have any questions regarding this report, please contact the number below. For patients who have questions please contact the health coronary care unit nurse that requested your imaging first. Electronically signed by: Richard Billings MD, [facility] ([phone]), at 08/22/2022 10:[address] Angiogram Coronary [...] who have questions please contact the health coronary care unit nurse that requested your imaging first. Chest wo Contrast (Generic) (Exam End: 08/27/2022 8:58 AM) Impression Stable findings of multifocal pneumonia. No interval abnormality. Thank you for letting us participate in the care of this patient. If you are a health care provider and have any questions regarding this report, please contact the number below. For patients who have questions please contact the health coronary care unit nurse that requested your imaging first. Fluoro Barium [...] who have questions please contact the health coronary care unit nurse that requested your imaging first. Fluoro Barium [...] who have questions please contact the health coronary care unit nurse that requested your imaging first. Abdomen 1 view (Generic) (Exam End: 09/04/2022 [...] who have questions please contact the health coronary care unit nurse that requested your imaging [...] who have questions please contact the health coronary care unit nurse that requested your imaging first. Chest One View (Exam End: 09/05/2022 9:24 AM) Impression 1. Reposition enteric tube now extending below the diaphragm and included cifiw-gb-haks. 2. Similar appearance of elevated right hemidiaphragm and linear/patchy bibasilar opacities which may represent atelectasis or possibly aspiration. Thank you for letting us participate in the care of this patient. If you are a health care provider and have any questions regarding this report, please contact the number below. For patients who have questions please contact the health coronary care unit nurse that requested your imaging first. Abdomen 1 view (Generic) (Exam End: 09/10/2022 [...] who have questions please contact the health coronary care unit nurse that requested your imaging first. Medications: Scheduled: [...] RD??c/b??esophagitis &??Farrell's esophagus, who was admitted to [facility] on 08/14/2022 (now on Hospital Day #23) [...] them that she shouldcontinue to work with PT/OT/INSTANT POWDER SUPERVISOR/nursing but that the most recent assessments [...] discharge - C/w valproate 300mg q6h - [employer]ST[employer] SUPERVISOR following, NPO at present - Psychiatry [...] Medicine PGY1 Medicine Team: Jose Juan, Pager #[phone] Date: 09/10/2022 Associated attestation - Molina Flores [...] of two midnights or is on the [facility] inpatient only procedure list (status C) due [...] bipolar, DM, EtOH, esophagitis, who presented to [facility] 3 days ago after being found unresponsive at home.?Patient found to have likely pneumonia +/- aspiration, newly reduced EF. Reason for Assessment: Tube Feeding, Follow-up Nutrition Recommendations: S/p PEG placement, resume current TF: Cyclic Peptamen AF at 90ml/hr for 14 hrs from 1456-4248 (pended). At goal, this will provide: Peptamen AF Total Volume Per Day: 1260 mL Scoops of Protein: 0 Calories per Day: 1512 Protein per Day: 96 g Free Water mL per Day: 1023 % RDI: 101 % Monitor hydration status on above TFs as they are concentrated. Pt may need additional fluids depending on IVFs, med flushes, p.o. Intake, etc. Po diet per INST[employer] POWDER SUPERVISOR (recs 09/04 NPO s/p MBS) Continue [...] Peptamen AF at 110ml/hr for 12hrs from 6721-3722 (see updated order above as of 09/07). [...] encounter: 64.5 kg (142 lb 1.6 oz). [place] Body Weight (IBW) (kg): 45.45 Usual Body [...] 08/25 r/t liquid tylenol, d/c per this insurance underwriter's request as liquid tylenol acts as a [...] identified (NOLAN Mendez J Parenteral Enteral Nutr. 2012 September; 36(3): 273-83) Nutrition to continue to follow up while inpatient THANKS Wilda Blankenship RD Pager #:[phone] * Alicia Cook, OT - 09/09/2022 9:30 [...] deficiency anemia,??GERD??c/b??esophagitis &??Farrell's esophagus??presenting in transfer from [facility], suspected to be in cardiogenic shock [...] Total Minutes, Occupational Therapy: 37 (2 TA, [phone]) Pager: [phone] Alicia Cook OT 09/09/2022 Occupational Therapy Rehabilitation [...] RD??c/b??esophagitis &??Farrell's esophagus, who was admitted to [facility] on 08/14/2022 (now on Hospital Day #21), [...] Molina Flores MD PCP: Chris Stanley APRN ([phone]) ID: Ishan Irving is a 62 y.o. 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.5 years) c/b chronic pancreatitis, iron deficiency anemia, ??GERD??c/b??esophagitis &??Farrell's esophagus, who was admitted to [facility] on 08/14/2022 (now on Hospital Day #26) [...] fellows interpretation Confirmed by fellow Niurka Rose ([id number]) on 09/07/2022 8:45:34 AM Confirmed by MD [...] Date/Time Lower Respiratory Culture Bronchial Alveolar Lavage [[id number]] Collected: 08/21/221649 Lab Status: Final result Specimen: Bronchial Alveolar Lavage Updated: 08/23/22 0741 Lower Respiratory Culture Rare mixed bacterial morphotypes suggestive of normal upper respiratory wiley Gram Stain -- Few Neutrophils seen No squamous epithelial cells seen No microorganisms seen. Fungus Culture & Calc Stain Bronchial Alveolar Lavage [[id number]] (Abnormal) Collected: 08/21/221649 Lab Status: Preliminary result Specimen: Bronchial Alveolar Lavage Updated: 08/24/22 1452 AFB culture Bronchial Alveolar Lavage [[id number]] Collected: 08/21/221649 Lab Status: Preliminary result Specimen: Bronchial Alveolar Lavage Updated: 08/24/22 2219 Acid Fast Bacilli Culture -- No Acid Fast Bacilli isolated to date If active tuberculosis is suspected, the patient should be on [employer] PRECAUTIONS. Call Infection Prevention for assistance if needed. Acid Fast Stain No Acid Fast Bacilli seen Fungus culture [[id number]] (Abnormal) Collected: 08/21/221649 Lab Status: Preliminary result Specimen: Bronchial Alveolar Lavage Updated: 08/24/22 145 Fungus Culture Rare Jacky albicans Calcofluor White Stain [[id number]] Collected: 08/21/221649 Lab Status: Final result Specimen: Bronchial Alveolar Lavage Updated: 08/21/222015 Calcofluor Stain Calcofluor White Preparation: Negative Lower Respiratory Culture Bronchial Alveolar Lavage [[id number]] Collected: 08/21/221644 Lab Status: Final result Specimen: Bronchial Alveolar Lavage Updated: 08/23/22 0741 Lower Respiratory Culture Rare mixed bacterial morphotypes suggestive of normal upper respiratory wiley Gram Stain -- Moderate Neutrophils seen No squamous epithelial cells seen No microorganisms seen. Fungus Culture & Calc Stain Bronchial Alveolar Lavage [[id number]] (Abnormal) Collected: 08/21/221644 Lab Status: Preliminary result Specimen: Bronchial Alveolar Lavage Updated: 08/24/22 1453 AFB culture Bronchial Alveolar Lavage [[id number]] Collected: 08/21/221644 Lab Status: Preliminary result Specimen: Bronchial Alveolar Lavage Updated: 08/24/22 2221 Acid Fast Bacilli Culture -- No Acid Fast Bacilli isolated to date If active tuberculosis is suspected, the patient should be on [employer] PRECAUTIONS. Call Infection Prevention for assistance if needed. Acid Fast Stain No Acid Fast Bacilli seen Fungus culture [[id number]] (Abnormal) Collected: 08/21/221644 Lab Status: Preliminary result Specimen: Bronchial Alveolar Lavage Updated: 08/24/22 145 Fungus Culture Rare Jacky albicans Calcofluor White Stain [[id number]] Collected: 08/21/221644 Lab Status: Final result Specimen: Bronchial Alveolar Lavage Updated: 08/21/222016 Calcofluor Stain Calcofluor White Preparation: Negative Blood culture [[id number]] Collected: 08/19/22 1720 Lab Status: Final result Specimen: Blood Updated: 08/24/22 2301 Blood Culture No growth at 5 days. Lower Respiratory Culture Sputum Induced [[id number]] Collected: 08/19/22 1451 Lab Status: Final result Specimen: Sputum Induced Updated: 08/21/22 0948 Lower Respiratory Culture Rare mixed bacterial morphotypes suggestive of normal upper respiratory wiley Gram Stain -- Many Neutrophils seen Few squamous epithelial cells seen No microorganisms seen. Blood culture [[id number]] Collected: 08/19/22 1330 Lab Status: Final result Specimen: Blood Updated: 08/24/22 1501 Blood Culture No growth at 5 days. Legionella Urinary Antigen [[id number]] Collected: 08/18/22 1013 Lab Status: Final result [...] Catheter Urine; Other; sepsis, bacteria on UA [[id number]] Collected: 08/15/22 1225 Lab Status: Final result Specimen: Indwelling Catheter Urine Updated: 08/16/22 0804 Urine Culture 1,000-9,000 cfu/ml Insignificant growth COVID-19 PCR [[id number]] Collected: 08/15/22 1150 Lab Status: Final result [...] using the Simplexa COVID-19 Direct Assay by [employer] as authorized by the FDA issued Emergency [...] Department of Pathology and Laboratory Medicine at [facility], certified under the Clinical Laboratory Improvement Amendments [...] fact sheets at the following FDA website: https://www.fda.gov/medical-devices/gepijyiyume-edwtpde-7066-gwuor-41-lsufyokju- fzv-bjnawedyeoqogu-hfdjecz-devices/zrfhy-fzwboexigpc-dfgv SARS-CoV-2 Source TRAIN GATE ATTENDANT Swab Lower Respiratory Culture Sputum Induced [[id number]] Collected: 08/15/22 0740 Lab Status: Final result Specimen: Sputum Induced Updated: 08/17/22 1015 Lower Respiratory Culture Rare normal upper respiratory wiley Gram Stain -- Many Neutrophils Few squamous epithelial cells Rare mixed bacterial morphotypes suggestive of normal upper respiratory wiley Blood culture [[id number]] Collected: 08/15/22 0110 Lab Status: Final result Specimen: Blood Updated: 08/20/22 0701 Blood Culture No growth at 5 days. MRSA PCR Screen ([facility]/CGP/APD/NLH) [[id number]] Collected: 08/15/22 0050 Lab Status: Final result Specimen: Nasopharyngeal Swab Updated: 08/17/22 1419 MRSA Result Negative MRSA Interp -- Methicillin-resistant Staphylococcus aureus (MRSA) is NOT DETECTED The MRSA target DNA sequences (mec and SCC) were not detected within the acceptable ranges using the Xpert MRSA NxG on the GeneXpert Dx System ([employer]). This suggests the absence of MRSA in the patient specimen submitted for testing. This test is cleared by the U.S. Food and Drug Administration for clinical use and its performance characteristics have been verified by the [facility] at [facility]. This result does not rule out the presence of any other organisms. Rare false negative results may occur if MRSA is present at low concentrations with much higher concentrations of other organisms including MRSE or S. aureus with an empty SCC cassette. Comment: [VERIFIED DATE]08.17.22 Verified By:Shannon Smiley (Electronic Signature) Blood culture [[id number]] Collected: 08/14/22 2355 Lab Status: Final result [...] who have questions please contact the health coronary care unit nurse that requested your imaging [...] who have questions please contact the health coronary care unit nurse that requested your imaging [...] who have questions please contact the health coronary care unit nurse that requested your imaging [...] who have questions please contact the health coronary care unit nurse that requested your imaging [...] who have questions please contact the health coronary care unit nurse that requested your imaging first. Head wo Contrast (Generic) (Exam End: 08/16/2022 10:44 PM) Impression No acute intracranial abnormality and no change from prior Thank you for letting us participate in the care of this patient. If you are a health care provider and have any questions regarding this report, please contact the number below. For patients who have questions please contact the health coronary care unit nurse that requested your imaging first. Electronically signed by: Moustapha Correa MD, [facility] ([phone]), at 08/16/2022 11:19 PM XR Abdomen 1 [...] who have questions please contact the health coronary care unit nurse that requested your imaging first. Head wo Contrast (Generic) (Exam End: 08/18/2022 3:14 PM) Impression No acute intracranial process. Thank you for letting us participate in the care of this patient. If you are a health care provider and have any questions regarding this report, please contact the number below. For patients who have questions please contact the health coronary care unit nurse that requested your imaging first. Chest One View (Exam End: 08/19/2022 12:30 [...] who have questions please contact the health coronary care unit nurse that requested your imaging first. Brain wo Contrast (Exam End: 08/19/2022 10:15 PM) Impression No acute infarction, mass or mass effect. Thank you for letting us participate in the care of this patient. If you are a health care provider and have any questions regarding this report, please contact the number below. For patients who have questions please contact the health coronary care unit nurse that requested your imaging first. Chest for [...] who have questions please contact the health coronary care unit nurse that requested your imaging first. Hip w Contrast Left (Exam End: 08/20/2022 [...] who have questions please contact the health coronary care unit nurse that requested your imaging first. Chest w Contrast (Exam End: 08/20/2022 11:04 [...] who have questions please contact the health coronary care unit nurse that requested your imaging first. Hip 2-3 Views Left (Exam End: 08/22/2022 12:19 AM) Impression No radiographic evidence of infection. Thank you for letting us participate in the care of this patient. If you are a health care provider and have any questions regarding this report, please contact the number below. For patients who have questions please contact the health coronary care unit nurse that requested your imaging first. Electronically signed by: Viktor Cervantes MD, [facility] ([phone]), at 08/22/2022 12:43 PM XR Pelvis (Generic) (Exam End: 08/22/2022 12:19 AM) Impression No radiographic evidence of infection status post left hip ORIF. Thank you for letting us participate in the care of this patient. If you are a health care provider and have any questions regarding this report, please contact the number below. For patients who have questions please contact the health coronary care unit nurse that requested your imaging first. Electronically signed by: Richard Billings MD, [facility] ([phone]), at 08/22/2022 10:[address] Angiogram Coronary [...] who have questions please contact the health coronary care unit nurse that requested your imaging first. Chest wo Contrast (Generic) (Exam End: 08/27/2022 8:58 AM) Impression Stable findings of multifocal pneumonia. No interval abnormality. Thank you for letting us participate in the care of this patient. If you are a health care provider and have any questions regarding this report, please contact the number below. For patients who have questions please contact the health coronary care unit nurse that requested your imaging first. Fluoro Barium [...] who have questions please contact the health coronary care unit nurse that requested your imaging first. Fluoro Barium [...] who have questions please contact the health coronary care unit nurse that requested your imaging first. Abdomen 1 view (Generic) (Exam End: 09/04/2022 [...] who have questions please contact the health coronary care unit nurse that requested your imaging [...] who have questions please contact the health coronary care unit nurse that requested your imaging first. Chest One View (Exam End: 09/05/2022 9:24 AM) Impression 1. Reposition enteric tube now extending below the diaphragm and included hfmhs-ns-plmo. 2. Similar appearance of elevated right hemidiaphragm and linear/patchy bibasilar opacities which may represent atelectasis or possibly aspiration. Thank you for letting us participate in the care of this patient. If you are a health care provider and have any questions regarding this report, please contact the number below. For patients who have questions please contact the health coronary care unit nurse that requested your imaging first. Medications: Scheduled: [...] RD??c/b??esophagitis &??Farrell's esophagus, who was admitted to [facility] on 08/14/2022 (now on Hospital Day #23) [...] that she should continue to work with PT/OT/INSTANT POWDER SUPERVISOR/nursing but that the most recent assessments still recommended acute rehab. Today's plan: - Continue tube feeds - Diabetes Team aware and titrating insulin accordingly - Surgery consulted for PEG placement today # Bipolar Disorder - Continue Seroquel 100mg nightly for now, patient and want it uptitrated before discharge - C/w valproate 300mg q6h - INSTANT POWDER SUPERVISOR following, NPO at present - Psychiatry [...] Medicine PGY1 Medicine Team: Jose Juan, Pager #[phone] Date: 09/09/2022 Associated attestation - Molina Flores [...] of two midnights or is on the [facility] inpatient only procedure list (status C) due [...] deficiency anemia,??GERD??c/b??esophagitis &??Farrell's esophagus??presenting in transfer from [facility], suspected to be in cardiogenic shock [...] times/wk Total Minutes, Occupational Therapy: 45 (x3 [facility] [phone]) Pager: [phone] DANIELA Montes 09/08/2022 Occupational Therapy Rehabilitation Department [...] deficiency anemia,??GERD??c/b??esophagitis &??Farrell's esophagus??presenting in transfer from [facility], suspected to be in cardiogenic shock [...] NPO for OR Monitoring:??Q4 Elsie Erickson APRN [facility] Endocrinology Diabetes Management Pager [phone] 20 minutes of this 35 minute visit was spent with the patient in counseling on diabetes and treatment plan, reviewing all glucose and insulin data as well as relevant laboratory results with the patient, and coordination of care on the inpatient unit including nursing and primary team. * Briana Bryant INST[employer] POW[employer] SUPERVISOR - 09/08/2022 8:47 AM EDT Speech-Language Pathology Consult Note Ishan Irving??is a 62 y.o.??female??admitted on 08/14/2022??with a medical history notable for??recent L femoral neck fracture,??bipolar disorder, resolving medication-induced Parkinsonism, insulin-dependent diabetes mellitus,??hx of alcohol use disorder (reported to be in remission for 1.5 ye ars) c/b chronic pancreatitis, iron deficiency anemia,??GERD??c/b??esophagitis &??Farrell's esophagus??presenting in transfer from [facility], suspected to be in cardiogenic shock and found to be in mixed shock with concern for stress cardiomyopathy.??She is s/p ORIF left femoral neck fracture ~ 08/08 at OSH. ?? Interval History: Dobhoff placed, Moved from ISCU to floor status, plan for PEG today. INSTANT POWDER SUPERVISOR team will continue to follow for swallowing and cognition. Briana Bryant MA [facility]-INSTANT POWDER SUPERVISOR Inpatient Rehabilitation Medicine pager:# [phone] * Chau Keith MD - 09/08/2022 6:11 AM EDT Images from the original note were not included. Inpatient Hospital Medicine Progress Note 09/08/2022 Patient Name: ISHAN IRVING Date of : 1960 Age: 62 y.o. Hospital Admit Date: 08/14/2022 Hospital Day: 25 Inpatient Attending: Richard Pascal MD PCP: Chris Stanley APRN ([phone]) ID: Ishan Irving is a 62 y.o. 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.5 years) c/b chronic pancreatitis, iron deficiency anemia, ??GERD??c/b??esophagitis &??Farrell's esophagus, who was admitted to [facility] on 08/14/2022 (now on Hospital Day #25) [...] CBC: Recent Labs 09/08/22 0200 09/07/22 0030 09/06/220 09/05/2210509/04/22 0026 WBC 6.9 6.2 6.3 4.9 6.7 [...] fellows interpretation Confirmed by fellow Niurka Rose ([id number]) on 09/07/2022 8:45:34 AM Confirmed by MD [...] Date/Time Lower Respiratory Culture Bronchial Alveolar Lavage [[id number]] Collected: 08/21/221649 Lab Status: Final result Specimen: Bronchial Alveolar Lavage Updated: 08/23/22740 Lower Respiratory Culture Rare mixed bacterial morphotypes suggestive of normal upper respiratory wiley Gram Stain -- Few Neutrophils seen No squamous epithelial cells seen No microorganisms seen. Fungus Culture & Calc Stain Bronchial Alveolar Lavage [[id number]] (Abnormal) Collected: 08/21/221649 Lab Status: Preliminary result Specimen: Bronchial Alveolar Lavage Updated: 08/24/22 145 AFB culture Bronchial Alveolar Lavage [[id number]] Collected: 08/21/221649 Lab Status: Preliminary result Specimen: Bronchial Alveolar Lavage Updated: 08/24/222218 Acid Fast Bacilli Culture -- No Acid Fast Bacilli isolated to date If active tuberculosis is suspected, the patient should be on [employer] PRECAUTIONS. Call Infection Prevention for assistance if needed. Acid Fast Stain No Acid Fast Bacilli seen Fungus culture [[id number]] (Abnormal) Collected: 08/21/221649 Lab Status: Preliminary result Specimen: Bronchial Alveolar Lavage Updated: 08/24/22 145 Fungus Culture Rare Jacky albicans Calcofluor White Stain [[id number]] Collected: 08/21/221649 Lab Status: Final result Specimen: Bronchial Alveolar Lavage Updated: 08/21/22 2016 Calcofluor Stain Calcofluor White Preparation: Negative Lower Respiratory Culture Bronchial Alveolar Lavage [[id number]] Collected: 08/21/221644 Lab Status: Final result Specimen: Bronchial Alveolar Lavage Updated: 08/23/2241 Lower Respiratory Culture Rare mixed bacterial morphotypes suggestive of normal upper respiratory wiley Gram Stain -- Moderate Neutrophils seen No squamous epithelial cells seen No microorganisms seen. Fungus Culture & Calc Stain Bronchial Alveolar Lavage [[id number]] (Abnormal) Collected: 08/21/221644 Lab Status: Preliminary result Specimen: Bronchial Alveolar Lavage Updated: 08/24/22 1453 AFB culture Bronchial Alveolar Lavage [[id number]] Collected: 08/21/221644 Lab Status: Preliminary result Specimen: Bronchial Alveolar Lavage Updated: 08/24/22 2221 Acid Fast Bacilli Culture -- No Acid Fast Bacilli isolated to date If active tuberculosis is suspected, the patient should be on [employer]OR[employer] PRECAUTIONS. Call Infection Prevention for assistance if needed. Acid Fast Stain No Acid Fast Bacilli seen Fungus culture [[id number]] (Abnormal) Collected: 08/21/221644 Lab Status: Preliminary result Specimen: Bronchial Alveolar Lavage Updated: 08/24/22 145 Fungus Culture Rare Jacky albicans Calcofluor White Stain [[id number]] Collected: 08/21/221644 Lab Status: Final result Specimen: Bronchial Alveolar Lavage Updated: 08/21/22 2017 Calcofluor Stain Calcofluor White Preparation: Negative Blood culture [[id number]] Collected: 08/19/22 1720 Lab Status: Final result Specimen: Blood Updated: 08/24/22 2301 Blood Culture No growth at 5 days. Lower Respiratory Culture Sputum Induced [[id number]] Collected: 08/19/22 1451 Lab Status: Final result Specimen: Sputum Induced Updated: 08/21/22 0948 Lower Respiratory Culture Rare mixed bacterial morphotypes suggestive of normal upper respiratory wiley Gram Stain -- Many Neutrophils seen Few squamous epithelial cells seen No microorganisms seen. Blood culture [[id number]] Collected: 08/19/22 1330 Lab Status: Final result Specimen: Blood Updated: 08/24/22 1501 Blood Culture No growth at 5 days. Legionella Urinary Antigen [[id number]] Collected: 08/18/22 1013 Lab Status: Final result [...] Catheter Urine; Other; sepsis, bacteria on UA [[id number]] Collected: 08/15/22 1225 Lab Status: Final result Specimen: Indwelling Catheter Urine Updated: 08/16/22 0804 Urine Culture 1,000-9,000 cfu/ml Insignificant growth COVID-19 PCR [[id number]] Collected: 08/15/22 1150 Lab Status: Final result [...] using the Simplexa COVID-19 Direct Assay by [employer] as authorized by the FDA issued Emergency [...] Department of Pathology and Laboratory Medicine at [facility], certified under the Clinical Laboratory Improvement Amendments [...] fact sheets at the following FDA website: https://www.fda.gov/medical-devices/ltbqecdgqet-dbtmvee-6208-yvldz-35-efxkgsbgv- nxj-cyxrjxkzfjcdpw-dngmnbj-devices/xfyze-wxrfsqwtpqh-yiza SARS-CoV-2 Source TRAIN GATE ATTENDANT Swab Lower Respiratory Culture Sputum Induced [[id number]] Collected: 08/15/22 0740 Lab Status: Final result Specimen: Sputum Induced Updated: 08/17/22 1015 Lower Respiratory Culture Rare normal upper respiratory wiley Gram Stain -- Many Neutrophils Few squamous epithelial cells Rare mixed bacterial morphotypes suggestive of normal upper respiratory wilye Blood culture [[id number]] Collected: 08/15/22 0110 Lab Status: Final result Specimen: Blood Updated: 08/20/22 0701 Blood Culture No growth at 5 days. MRSA PCR Screen ([facility]CGP/APD/[facility]H) [[id number]] Collected: 08/15/22 0050 Lab Status: Final result Specimen: Nasopharyngeal Swab Updated: 08/17/22 1419 MRSA Result Negative MRSA Interp -- Methicillin-resistant Staphylococcus aureus (MRSA) is NOT DETECTED The MRSA target DNA sequences (mec and SCC) were not detected within the acceptable ranges using the Xpert MRSA NxG on the GeneXpert Dx System ([employer]). This suggests the absence of MRSA in the patient specimen submitted for testing. This test is cleared by the U.S. Food and Drug Administration for clinical use and its performance characteristics have been verified by the [facility] at [facility]. This result does not rule out the presence of any other organisms. Rare false negative results may occur if MRSA is present at low concentrations with much higher concentrations of other organisms including MRSE or S. aureus with an empty SCC cassette. Comment: [VERIFIED DATE]08.17.22 Verified By:Shannon Smiley (Electronic Signature) Blood culture [[id number]] Collected: 08/14/22 9368 Lab Status: Final result Specimen: Blood Updated: [...] who have questions please contact the health coronary care unit nurse that requested your imaging [...] who have questions please contact the health coronary care unit nurse that requested your imaging [...] who have questions please contact the health coronary care unit nurse that requested your imaging [...] who have questions please contact the health coronary care unit nurse that requested your imaging [...] who have questions please contact the health coronary care unit nurse that requested your imaging first. Head wo Contrast (Generic) (Exam End: 08/16/2022 10:44 PM) Impression No acute intracranial abnormality and no change from prior Thank you for letting us participate in the care of this patient. If you are a health care provider and have any questions regarding this report, please contact the number below. For patients who have questions please contact the health coronary care unit nurse that requested your imaging first. Electronically signed by: Moustapha Correa MD, [facility] ([phone]), at 08/16/2022 11:19 PM XR Abdomen 1 [...] who have questions please contact the health coronary care unit nurse that requested your imaging first. Head wo Contrast (Generic) (Exam End: 08/18/2022 3:14 PM) Impression No acute intracranial process. Thank you for letting us participate in the care of this patient. If you are a health care provider and have any questions regarding this report, please contact the number below. For patients who have questions please contact the health coronary care unit nurse that requested your imaging first. Chest One View (Exam End: 08/19/2022 12:30 [...] who have questions please contact the health coronary care unit nurse that requested your imaging first. Brain wo Contrast (Exam End: 08/19/2022 10:15 PM) Impression No acute infarction, mass or mass effect. Thank you for letting us participate in the care of this patient. If you are a health care provider and have any questions regarding this report, please contact the number below. For patients who have questions please contact the health coronary care unit nurse that requested your imaging first. Chest for [...] who have questions please contact the health coronary care unit nurse that requested your imaging first. Hip w Contrast Left (Exam End: 08/20/2022 [...] who have questions please contact the health coronary care unit nurse that requested your imaging first. Chest w Contrast (Exam End: 08/20/2022 11:04 [...] who have questions please contact the health coronary care unit nurse that requested your imaging first. Hip 2-3 Views Left (Exam End: 08/22/2022 12:19 AM) Impression No radiographic evidence of infection. Thank you for letting us participate in the care of this patient. If you are a health care provider and have any questions regarding this report, please contact the number below. For patients who have questions please contact the health coronary care unit nurse that requested your imaging first. Electronically signed by: Viktor Cervantes MD, [facility] ([phone]), at 08/22/2022 12:43 PM XR Pelvis (Generic) (Exam End: 08/22/2022 12:19 AM) Impression No radiographic evidence of infection status post left hip ORIF. Thank you for letting us participate in the care of this patient. If you are a health care provider and have any questions regarding this report, please contact the number below. For patients who have questions please contact the health coronary care unit nurse that requested your imaging first. Electronically signed by: Richard Billings MD, [facility] ([phone]), at 08/22/2022 10:[address] Angiogram Coronary [...] who have questions please contact the health coronary care unit nurse that requested your imaging first. Chest wo Contrast (Generic) (Exam End: 08/27/2022 8:58 AM) Impression Stable findings of multifocal pneumonia. No interval abnormality. Thank you for letting us participate in the care of this patient. If you are a health care provider and have any questions regarding this report, please contact the number below. For patients who have questions please contact the health coronary care unit nurse that requested your imaging first. Fluoro Barium [...] who have questions please contact the health coronary care unit nurse that requested your imaging first. Fluoro Barium [...] who have questions please contact the health coronary care unit nurse that requested your imaging first. Abdomen 1 view (Generic) (Exam End: 09/04/2022 [...] who have questions please contact the health coronary care unit nurse that requested your imaging [...] who have questions please contact the health coronary care unit nurse that requested your imaging first. Chest One View (Exam End: 09/05/2022 9:24 AM) Impression 1. Reposition enteric tube now extending below the diaphragm and included [id number]. 2. Similar appearance of elevated right hemidiaphragm and linear/patchy bibasilar opacities which may represent atelectasis or possibly aspiration. Thank you for letting us participate in the care of this patient. If you are a health care provider and have any questions regarding this report, please contact the number below. For patients who have questions please contact the health coronary care unit nurse that requested your imaging first. Medications: Scheduled: [...] RD??c/b??esophagitis &??Farrell's esophagus, who was admitted to [facility] on 08/14/2022 (now on Hospital Day #23) [...] that she should continue to work with PT/OT/INSTANT POWDER SUPERVISOR/nursing but that the most recent assessments still recommended acute rehab. Today's plan: - Continue tube feeds - Diabetes Team aware and titrating insulin accordingly - Surgery consulted for PEG placement today # Bipolar Disorder - Continue Seroquel 100mg nightly for now, patient and want it uptitrated before discharge - C/w valproate 300mg q6h - INSTANT POWDER SUPERVISOR following, NPO at present - Psychiatry [...] status: Attempt Cardiopulmonary Resuscitation - Inpatient Chau T Boserup, MD Internal Medicine PGY1 Medicine Team: Jose Juan, Pager #[phone] Date: 09/08/2022 Associated attestation - Molina Flores [...] of two midnights or is on the [facility] inpatient only procedure list (status C) due [...] 4:51 PM EDT Speech-Language Pathology Contact Note: INSTANT POWDER SUPERVISOR following for swallow, cognitive intervention. Discussed with nursing this AM, pending potential PEG today and NPO with TF held. TF restarted this PM but I was unable to return due to scheduling limitations. INSTANT POWDER SUPERVISOR team will follow up at later date for ongoing therapy, please secure chat/page withquestions/concerns. Thank you. Petty Mccullough M.S., CCC-INSTANT POWDER SUPERVISOR Inpatient Speech-Pathology Pager: [phone] * Feroz Portillo, DANCING MASTER - 09/07/2022 2:50 PM EDT Physical Therapy [...] deficiency anemia,??GERD??c/b??esophagitis &??Farrell's esophagus??presenting in transfer from [facility], suspected to be in cardiogenic shock and found to be in mixed shock with concern for stress cardiomyopathy. She is s/p ORIF left femoral neck fracture ~ 08/08 at OSH. Interval History: Moved to [facility], dooff placed Social History: single level home w [...] goals of rx, activity progression Assessment: Ishan Johanny Aristides was seen today for physical therapy [...] 45 Billing Code: TE-F x 3 FEROZ PORTILLOTEMITOPE Pager: [phone] Physical Therapy Inpatient Rehabilitation Department * Shanice Carrera, RD - 09/07/2022 2:38 PM EDT Nutrition Progress Note Ishan Irving is a 62 y.o.??female??with h/o bipolar, DM, EtOH, esophagitis, who presented to [facility] 3 days ago after being found unresponsive at home.?Patient found to have likely pneumonia +/- aspiration, newly reduced EF. Reason for Assessment: Tube Feeding, Follow-up Nutrition Recommendations: Enteral Nutrition: New: Cyclic Peptamen AF at 90ml/hr for 14 hrs from 1083-9013 (pended). At goal, this will provide: Peptamen AF Total Volume Per Day: 1260 mL Scoops of Protein: 0 Calories per Day: 1512 Protein per Day: 96 g Free Water mL per Day: 1023 % RDI: 101 % Monitor hydration status on above TFs as they are concentrated. Pt may need additional fluids depending on IVFs, med flushes, p.o. Intake, etc. Diet per INSTANT POWDER SUPERVISOR Continue 50,000 units vitamin D weekly; 1000 mcg folic acid and 100 mg thiamine daily. Monitor lytes. Replete as indicated Monitor BM. Goal of one every 24-48hrs while on EN Monitor weight to trend I was able to discuss plan with provider Murphy Manzano 4500 Current Nutrition Regimen: Active Orders Diet NPO diet (Give Meds) Frequency: Effective Now Number of Occurrences: Until Specified All Active TF Orders: Tubefeeding Orders (From admission, onward) Start Dose/Rate Route Frequency Ordered Stop 08/31/22 1745 tube feeding diet 1,320 mL 110 mL/hr Per NG tube Cyclic-(Tube feed) 08/31/22 1651 Cyclic Peptamen AF at 110ml/hr for 12hrs from 6763-1500 (see updated order above as of 09/07). [...] nostril 3 PICC Line - Double Lumen 08/19/22 [...] encounter: 64.1 kg (141 lb 5 oz). [place] Body Weight (IBW) (kg): 45.45 Usual Body [...] 08/25 r/t liquid tylenol, d/c per this insurance underwriter's request as liquid tylenol acts as a [...] up while inpatient Shanice Carrera RD Pager #:[phone] * Elsie Erickson, NUT SIFTER - 09/07/2022 1:39 PM EDT Follow Up [...] deficiency anemia,??GERD??c/b??esophagitis &??Farrell's esophagus??presenting in transfer from [facility], suspected to be in cardiogenic shock [...] of 110 mls/hr Monitoring:??Q4 Elsie Erickson APRN [facility] Endocrinology Diabetes Management Pager [phone] 20 minutes of this 35 minute visit [...] RD??c/b??esophagitis &??Farrell's esophagus, who was admitted to [facility] on 08/14/2022 (now on Hospital Day #21), [...] Molina Flores MD PCP: Chris Stanley APRN ([phone]) ID: Ishan Irving is a 62 y.o. 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.5 years) c/b chronic pancreatitis, iron deficiency anemia, ??GERD??c/b??esophagitis &??Farrell's esophagus, who was admitted to [facility] on 08/14/2022 (now on Hospital Day #24) [...] rashes LABS: CBC: Recent Labs 09/07/22 0030 09/06/22 0100 09/05/22 0106 09/04/22 0026 09/03/22 0040 WBC 6.2 6.3 4.9 6.7 5.1 HGB 9.1* 8.6* 8.7* 8.5* 8.4* HCT 30.5* 29.0* 29.0* 28.1* 27.1* PLATELET 286 297 314 300 305 NEUTROABS 2.71 2.64 1.88 4.05 2.19 Chemistry: Recent Labs 09/07/22 0030 09/06/22 0100 09/05/22 0106 09/04/22 0026 09/03/22 0040 NA 138 139 [...] Date/Time Lower Respiratory Culture Bronchial Alveolar Lavage [[id number]] Collected: 08/21/22 1650 Lab Status: Final result Specimen: Bronchial Alveolar Lavage Updated: 08/23/22 0741 Lower Respiratory Culture Rare mixed bacterial morphotypes suggestive of normal upper respiratory wiley Gram Stain -- Few Neutrophils seen No squamous epithelial cells seen No microorganisms seen. Fungus Culture & Calc Stain Bronchial Alveolar Lavage [[id number]] (Abnormal) Collected: 08/21/22 1650 Lab Status: Preliminary result Specimen: Bronchial Alveolar Lavage Updated: 08/24/22 1452 AFB culture Bronchial Alveolar Lavage [[id number]] Collected: 08/21/22 165 Lab Status: Preliminary result Specimen: Bronchial Alveolar Lavage Updated: 08/24/22 2219 Acid Fast Bacilli Culture -- No Acid Fast Bacilli isolated to date If active tuberculosis is suspected, the patient should be on [employer]. Call Infection Prevention for assistance if needed. Acid Fast Stain No Acid Fast Bacilli seen Fungus culture [[id number]] (Abnormal) Collected: 08/21/22 165 Lab Status: Preliminary result Specimen: Bronchial Alveolar Lavage Updated: 08/24/22 1452 Fungus Culture Rare Jacky albicans Calcofluor White Stain [[id number]] Collected: 08/21/221649 Lab Status: Final result Specimen: Bronchial Alveolar Lavage Updated: 08/21/222015 Calcofluor Stain Calcofluor White Preparation: Negative Lower Respiratory Culture Bronchial Alveolar Lavage [[id number]] Collected: 08/21/221644 Lab Status: Final result Specimen: Bronchial Alveolar Lavage Updated: 08/23/22 0741 Lower Respiratory Culture Rare mixed bacterial morphotypes suggestive of normal upper respiratory wiley Gram Stain -- Moderate Neutrophils seen No squamous epithelial cells seen No microorganisms seen. Fungus Culture & Calc Stain Bronchial Alveolar Lavage [[id number]] (Abnormal) Collected: 08/21/221644 Lab Status: Preliminary result Specimen: Bronchial Alveolar Lavage Updated: 08/24/22 1453 AFB culture Bronchial Alveolar Lavage [[id number]] Collected: 08/21/221644 Lab Status: Preliminary result Specimen: Bronchial Alveolar Lavage Updated: 08/24/22 2221 Acid Fast Bacilli Culture -- No Acid Fast Bacilli isolated to date If active tuberculosis is suspected, the patient should be on [employer]. Call Infection Prevention for assistance if needed. Acid Fast Stain No Acid Fast Bacilli seen Fungus culture [[id number]] (Abnormal) Collected: 08/21/221644 Lab Status: Preliminary result Specimen: Bronchial Alveolar Lavage Updated: 08/24/22 1453 Fungus Culture Rare Jacky albicans Calcofluor White Stain [[id number]] Collected: 08/21/221644 Lab Status: Final result Specimen: Bronchial Alveolar Lavage Updated: 08/21/222016 Calcofluor Stain Calcofluor White Preparation: Negative Blood culture [[id number]] Collected: 08/19/22 1720 Lab Status: Final result Specimen: Blood Updated: 08/24/22 2301 Blood Culture No growth at 5 days. Lower Respiratory Culture Sputum Induced [[id number]] Collected: 08/19/22 1451 Lab Status: Final result Specimen: Sputum Induced Updated: 08/21/22 0948 Lower Respiratory Culture Rare mixed bacterial morphotypes suggestive of normal upper respiratory wiley Gram Stain -- Many Neutrophils seen Few squamous epithelial cells seen No microorganisms seen. Blood culture [[id number]] Collected: 08/19/22 1330 Lab Status: Final result Specimen: Blood Updated: 08/24/22 1501 Blood Culture No growth at 5 days. Legionella Urinary Antigen [[id number]] Collected: 08/18/22 1013 Lab Status: Final result [...] Catheter Urine; Other; sepsis, bacteria on UA [[id number]] Collected: 08/15/22 1225 Lab Status: Final result Specimen: Indwelling Catheter Urine Updated: 08/16/22 0804 Urine Culture 1,000-9,000 cfu/ml Insignificant growth COVID-19 PCR [[id number]] Collected: 08/15/22 1150 Lab Status: Final result [...] using the Simplexa COVID-19 Direct Assay by [employer] as authorized by the FDA issued Emergency [...] Department of Pathology and Laboratory Medicine at [facility], certified under the Clinical Laboratory Improvement Amendments [...] fact sheets at the following FDA website: https://www.fda.gov/medical-devices/lrcbhppxdhg-numhiht-9543-xgxlb-92-mjhpzgyjw- wmc-uajfsebfjoxzjf-fuaxodx-devices/vzmze-iymmvxysnxr-maqs SARS-CoV-2 Source TRAIN GATE ATTENDANT Swab Lower Respiratory Culture Sputum Induced [[id number]] Collected: 08/15/22 0740 Lab Status: Final result Specimen: Sputum Induced Updated: 08/17/22 1015 Lower Respiratory Culture Rare normal upper respiratory wiley Gram Stain -- Many Neutrophils Few squamous epithelial cells Rare mixed bacterial morphotypes suggestive of normal upper respiratory wiley Blood culture [[id number]] Collected: 08/15/22 0110 Lab Status: Final result Specimen: Blood Updated: 08/20/22 0701 Blood Culture No growth at 5 days. MRSA PCR Screen ([facility]/APD/NLH) [[id number]] Collected: 08/15/22 0050 Lab Status: Final result Specimen: Nasopharyngeal Swab Updated: 08/17/22 1419 MRSA Result Negative MRSA Interp -- Methicillin-resistant Staphylococcus aureus (MRSA) is NOT DETECTED The MRSA target DNA sequences (mec and SCC) were not detected within the acceptable ranges using the Xpert MRSA NxG on the GeneXpert Dx System ([employer]). This suggests the absence of MRSA in the patient specimen submitted for testing. This test is cleared by the U.S. Food and Drug Administration for clinical use and its performance characteristics have been verified by the [facility] at [facility]. This result does not rule out the presence of any other organisms. Rare false negative results may occur if MRSA is present at low concentrations with much higher concentrations of other organisms including MRSE or S. aureus with an empty SCC cassette. Comment: [VERIFIED DATE]08.17.22 Verified By:Shannon Smiley (Electronic Signature) Blood culture [[id number]] Collected: 08/14/22 9879 Lab Status: Final result Specimen: Blood Updated: [...] who have questions please contact the health coronary care unit nurse that requested your imaging [...] who have questions please contact the health coronary care unit nurse that requested your imaging [...] who have questions please contact the health coronary care unit nurse that requested your imaging [...] who have questions please contact the health coronary care unit nurse that requested your imaging [...] who have questions please contact the health coronary care unit nurse that requested your imaging first. Head wo Contrast (Generic) (Exam End: 08/16/2022 10:44 PM) Impression No acute intracranial abnormality and no change from prior Thank you for letting us participate in the care of this patient. If you are a health care provider and have any questions regarding this report, please contact the number below. For patients who have questions please contact the health coronary care unit nurse that requested your imaging first. Electronically signed by: Moustapha Correa MD, [facility] ([phone]), at 08/16/2022 11:19 PM XR Abdomen 1 [...] who have questions please contact the health coronary care unit nurse that requested your imaging first. Head wo Contrast (Generic) (Exam End: 08/18/2022 3:14 PM) Impression No acute intracranial process. Thank you for letting us participate in the care of this patient. If you are a health care provider and have any questions regarding this report, please contact the number below. For patients who have questions please contact the health coronary care unit nurse that requested your imaging first. Chest One View (Exam End: 08/19/2022 12:30 [...] who have questions please contact the health coronary care unit nurse that requested your imaging first. Brain wo Contrast (Exam End: 08/19/2022 10:15 PM) Impression No acute infarction, mass or mass effect. Thank you for letting us participate in the care of this patient. If you are a health care provider and have any questions regarding this report, please contact the number below. For patients who have questions please contact the health coronary care unit nurse that requested your imaging first. Chest for [...] who have questions please contact the health coronary care unit nurse that requested your imaging first. Hip w Contrast Left (Exam End: 08/20/2022 [...] who have questions please contact the health coronary care unit nurse that requested your imaging first. Chest w Contrast (Exam End: 08/20/2022 11:04 [...] who have questions please contact the health coronary care unit nurse that requested your imaging first. Hip 2-3 Views Left (Exam End: 08/22/2022 12:19 AM) Impression No radiographic evidence of infection. Thank you for letting us participate in the care of this patient. If you are a health care provider and have any questions regarding this report, please contact the number below. For patients who have questions please contact the health coronary care unit nurse that requested your imaging first. Electronically signed by: Viktor Cervantes MD, [facility] ([phone]), at 08/22/2022 12:43 PM XR Pelvis (Generic) (Exam End: 08/22/2022 12:19 AM) Impression No radiographic evidence of infection status post left hip ORIF. Thank you for letting us participate in the care of this patient. If you are a health care provider and have any questions regarding this report, please contact the number below. For patients who have questions please contact the health coronary care unit nurse that requested your imaging first. Electronically signed by: Richard Billings MD, [facility] ([phone]), at 08/22/2022 10:[address] Angiogram Coronary [...] who have questions please contact the health coronary care unit nurse that requested your imaging first. Chest wo Contrast (Generic) (Exam End: 08/27/2022 8:58 AM) Impression Stable findings of multifocal pneumonia. No interval abnormality. Thank you for letting us participate in the care of this patient. If you are a health care provider and have any questions regarding this report, please contact the number below. For patients who have questions please contact the health coronary care unit nurse that requested your imaging first. Fluoro Barium [...] who have questions please contact the health coronary care unit nurse that requested your imaging first. Fluoro Barium [...] who have questions please contact the health coronary care unit nurse that requested your imaging first. Abdomen 1 view (Generic) (Exam End: 09/04/2022 [...] who have questions please contact the health coronary care unit nurse that requested your imaging [...] who have questions please contact the health coronary care unit nurse that requested your imaging first. Chest One View (Exam End: 09/05/2022 9:24 AM) Impression 1. Reposition enteric tube now extending below the diaphragm and included plbrc-cw-nqyi. 2. Similar appearance of elevated right hemidiaphragm and linear/patchy bibasilar opacities which may represent atelectasis or possibly aspiration. Thank you for letting us participate in the care of this patient. If you are a health care provider and have any questions regarding this report, please contact the number below. For patients who have questions please contact the health coronary care unit nurse that requested your imaging first. Medications: Scheduled: [...] RD??c/b??esophagitis &??Farrell's esophagus, who was admitted to [facility] on 08/14/2022 (now on Hospital Day #23) [...] them thatshe should continue to work with PT/OT/INSTANT POWDER SUPERVISOR/nursing but that the most recent assessments still recommended acute rehab. Today's plan: - Continue tube feeds - Diabetes Team aware and titrating insulin accordingly - IR consulted for PEG placement this week # Bipolar Disorder - Continue Seroquel 100mg nightly for now, patient and want it uptitrated before discharge - C/w valproate 300mg q6h - INSTANT POWDER SUPERVISOR following, NPO at present - Psychiatry [...] Medicine PGY1 Medicine Team: Jose Juan, Pager #[phone] Date: 09/07/2022 Associated attestation - Molina Flores [...] Richard Pascal MD PCP: Chris Stanley APRN ([phone]) ID: Ishan Irving is a 62 y.o. 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.5 years) c/b chronic pancreatitis, iron deficiency anemia, ??GERD??c/b??esophagitis &??Farrell's esophagus, who was admitted to [facility] on 08/14/2022 (now on Hospital Day #23) [...] absolute 0.08 (normal range) Chemistry: Recent Labs 09/06/22 0100 09/05/22 0106 09/04/22 [...] Date/Time Lower Respiratory Culture Bronchial Alveolar Lavage [[id number]] Collected: 04/14/23 1650 Lab Status: Final result Specimen: Bronchial Alveolar Lavage Updated: 08/23/22 0741 Lower Respiratory Culture Rare mixed bacterial morphotypes suggestive of normal upper respiratory wiley Gram Stain -- Few Neutrophils seen No squamous epithelial cells seen No microorganisms seen. Fungus Culture & Calc Stain Bronchial Alveolar Lavage [[id number]] (Abnormal) Collected: 08/21/221649 Lab Status: Preliminary result Specimen: Bronchial Alveolar Lavage Updated: 08/24/22 1452 AFB culture Bronchial Alveolar Lavage [[id number]] Collected: 08/21/221649 Lab Status: Preliminary result Specimen: Bronchial Alveolar Lavage Updated: 08/24/22 2219 Acid Fast Bacilli Culture -- No Acid Fast Bacilli isolated to date If active tuberculosis is suspected, the patient should be on AIRBORNE PRECAUTIONS. Call Infection Prevention for assistance if needed. Acid Fast Stain No Acid Fast Bacilli seen Fungus culture [[id number]] (Abnormal) Collected: 08/21/221649 Lab Status: Preliminary result Specimen: Bronchial Alveolar Lavage Updated: 08/24/22 145 Fungus Culture Rare Jacky albicans Calcofluor White Stain [[id number]] Collected: 08/21/221649 Lab Status: Final result Specimen: Bronchial Alveolar Lavage Updated: 08/21/222015 Calcofluor Stain Calcofluor White Preparation: Negative Lower Respiratory Culture Bronchial Alveolar Lavage [[id number]] Collected: 08/21/221644 Lab Status: Final result Specimen: Bronchial Alveolar Lavage Updated: 08/23/22 0741 Lower Respiratory Culture Rare mixed bacterial morphotypes suggestive of normal upper respiratory wiley Gram Stain -- Moderate Neutrophils seen No squamous epithelial cells seen No microorganisms seen. Fungus Culture & Calc Stain Bronchial Alveolar Lavage [[id number]] (Abnormal) Collected: 08/21/221644 Lab Status: Preliminary result Specimen: Bronchial Alveolar Lavage Updated: 08/24/22 1453 AFB culture Bronchial Alveolar Lavage [[id number]] Collected: 08/21/221644 Lab Status: Preliminary result Specimen: Bronchial Alveolar Lavage Updated: 08/24/22 2221 Acid Fast Bacilli Culture -- No Acid Fast Bacilli isolated to date If active tuberculosis is suspected, the patient should be on AIRBORNE PRECAUTIONS. Call Infection Prevention for assistance if needed. Acid Fast Stain No Acid Fast Bacilli seen Fungus culture [[id number]] (Abnormal) Collected: 08/21/221644 Lab Status: Preliminary result Specimen: Bronchial Alveolar Lavage Updated: 08/24/22 1453 Fungus Culture Rare Jacky albicans Calcofluor White Stain [[id number]] Collected: 08/21/22 1645 Lab Status: Final result Specimen: Bronchial Alveolar Lavage Updated: 08/21/22 2017 Calcofluor Stain Calcofluor White Preparation: Negative Blood culture [[id number]] Collected: 08/19/22 1720 Lab Status: Final result Specimen: Blood Updated: 08/24/22 2301 Blood Culture No growth at 5 days. Lower Respiratory Culture Sputum Induced [[id number]] Collected: 08/19/22 1451 Lab Status: Final result Specimen: Sputum Induced Updated: 08/21/22 0948 Lower Respiratory Culture Rare mixed bacterial morphotypes suggestive of normal upper respiratory wiley Gram Stain -- Many Neutrophils seen Few squamous epithelial cells seen No microorganisms seen. Blood culture [[id number]] Collected: 08/19/22 1330 Lab Status: Final result Specimen: Blood Updated: 08/24/22 1501 Blood Culture No growth at 5 days. Legionella Urinary Antigen [[id number]] Collected: 08/18/22 1013 Lab Status: Final result [...] Catheter Urine; Other; sepsis, bacteria on UA [[id number]] Collected: 08/15/22 1225 Lab Status: Final result Specimen: Indwelling Catheter Urine Updated: 08/16/22 0804 Urine Culture 1,000-9,000 cfu/ml Insignificant growth COVID-19 PCR [[id number]] Collected: 08/15/22 1150 Lab Status: Final result [...] using the Simplexa COVID-19 Direct Assay by [employer] as authorized by the FDA issued Emergency [...] Department of Pathology and Laboratory Medicine at [facility], certified under the Clinical Laboratory Improvement Amendments [...] fact sheets at the following FDA website: https://www.fda.gov/medical-devices/lrfdmcloqty-qekhsss-5182-sjpgc-03-gtecnxwsj- eyt-jdhpbvrjkgmkpd-yvyflfc-devices/mkhff-vadbwsisujd-gwcc SARS-CoV-2 Source TRAIN GATE ATTENDANT Swab Lower Respiratory Culture Sputum Induced [[id number]] Collected: 08/15/22 0740 Lab Status: Final result Specimen: Sputum Induced Updated: 08/17/22 1015 Lower Respiratory Culture Rare normal upper respiratory wiley Gram Stain -- Many Neutrophils Few squamous epithelial cells Rare mixed bacterial morphotypes suggestive of normal upper respiratory wiley Blood culture [[id number]] Collected: 08/15/22 0110 Lab Status: Final result Specimen: Blood Updated: 08/20/22 0701 Blood Culture No growth at 5 days. MRSA PCR Screen ([facility]/CGP/APD/NLH) [[id number]] Collected: 08/15/22 0050 Lab Status: Final result Specimen: Nasopharyngeal Swab Updated: 08/17/22 1419 MRSA Result Negative MRSA Interp -- Methicillin-resistant Staphylococcus aureus (MRSA) is NOT DETECTED The MRSA target DNA sequences (mec and SCC) were not detected within the acceptable ranges using the Xpert MRSA NxG on the GeneXpert Dx System ([employer]). This suggests the absence of MRSA in the patient specimen submitted for testing. This test is cleared by the U.S. Food and Drug Administration for clinical use and its performance characteristics have been verified by the [facility] at [facility]. This result does not rule out the presence of any other organisms. Rare false negative results may occur if MRSA is present at low concentrations with much higher concentrations of other organisms including MRSE or S. aureus with an empty SCC cassette. Comment: [VERIFIED DATE]08.17.22 Verified By:Shannon Smiley (Electronic Signature) Blood culture [[id number]] Collected: 08/14/22 2355 Lab Status: Final result [...] who have questions please contact the health coronary care unit nurse that requested your imaging [...] who have questions please contact the health coronary care unit nurse that requested your imaging [...] who have questions please contact the health coronary care unit nurse that requested your imaging [...] who have questions please contact the health coronary care unit nurse that requested your imaging [...] who have questions please contact the health coronary care unit nurse that requested your imaging first. Head wo Contrast (Generic) (Exam End: 08/16/2022 10:44 PM) Impression No acute intracranial abnormality and no change from prior Thank you for letting us participate in the care of this patient. If you are a health care provider and have any questions regarding this report, please contact the number below. For patients who have questions please contact the health coronary care unit nurse that requested your imaging first. Electronically signed by: Moustapha Correa MD, [facility] ([phone]), at 08/16/2022 11:19 PM XR Abdomen 1 [...] who have questions please contact the health coronary care unit nurse that requested your imaging first. Head wo Contrast (Generic) (Exam End: 08/18/2022 3:14 PM) Impression No acute intracranial process. Thank you for letting us participate in the care of this patient. If you are a health care provider and have any questions regarding this report, please contact the number below. For patients who have questions please contact the health coronary care unit nurse that requested your imaging first. Chest One View (Exam End: 08/19/2022 12:30 [...] who have questions please contact the health coronary care unit nurse that requested your imaging first. Brain wo Contrast (Exam End: 08/19/2022 10:15 PM) Impression No acute infarction, mass or mass effect. Thank you for letting us participate in the care of this patient. If you are a health care provider and have any questions regarding this report, please contact the number below. For patients who have questions please contact the health coronary care unit nurse that requested your imaging first. Chest for [...] who have questions please contact the health coronary care unit nurse that requested your imaging first. Hip w Contrast Left (Exam End: 08/20/2022 [...] who have questions please contact the health coronary care unit nurse that requested your imaging first. Chest w Contrast (Exam End: 08/20/2022 11:04 [...] who have questions please contact the health coronary care unit nurse that requested your imaging first. Hip 2-3 Views Left (Exam End: 08/22/2022 12:19 AM) Impression No radiographic evidence of infection. Thank you for letting us participate in the care of this patient. If you are a health care provider and have any questions regarding this report, please contact the number below. For patients who have questions please contact the health coronary care unit nurse that requested your imaging first. Electronically signed by: Viktor Cervantes MD, [facility] ([phone]), at 08/22/2022 12:43 PM XR Pelvis (Generic) (Exam End: 08/22/2022 12:19 AM) Impression No radiographic evidence of infection status post left hip ORIF. Thank you for letting us participate in the care of this patient. If you are a health care provider and have any questions regarding this report, please contact the number below. For patients who have questions please contact the health coronary care unit nurse that requested your imaging first. Electronically signed by: Richard Billings MD, [facility] ([phone]), at 08/22/2022 10:[address] Angiogram Coronary [...] who have questions please contact the health coronary care unit nurse that requested your imaging first. Chest wo Contrast (Generic) (Exam End: 08/27/2022 8:58 AM) Impression Stable findings of multifocal pneumonia. No interval abnormality. Thank you for letting us participate in the care of this patient. If you are a health care provider and have any questions regarding this report, please contact the number below. For patients who have questions please contact the health coronary care unit nurse that requested your imaging first. Fluoro Barium [...] who have questions please contact the health coronary care unit nurse that requested your imaging first. Fluoro Barium [...] who have questions please contact the health coronary care unit nurse that requested your imaging first. Abdomen 1 view (Generic) (Exam End: 09/04/2022 [...] who have questions please contact the health coronary care unit nurse that requested your imaging [...] who have questions please contact the health coronary care unit nurse that requested your imaging first. Chest One View (Exam End: 09/05/2022 9:24 AM) Impression 1. Reposition enteric tube now extending below the diaphragm and included fvzth-gl-ifys. 2. Similar appearance of elevated right hemidiaphragm and linear/patchy bibasilar opacities which may represent atelectasis or possibly aspiration. Thank you for letting us participate in the care of this patient. If you are a health care provider and have any questions regarding this report, please contact the number below. For patients who have questions please contact the health coronary care unit nurse that requested your imaging first. Medications: Scheduled: ??? insulin glargine (Lantus;Semglee) (100 [...] RD??c/b??esophagitis &??Farrell's esophagus, who was admitted to [facility] on 08/14/2022 (now on Hospital Day #23) [...] that she should continue to work with PT/OT/INSTANT POWDER SUPERVISOR/nursing but that the most recent assessments still recommended acute rehab. Today's plan: - Tube feeds at goal - Diabetes Team aware and titrating insulin accordingly - bridle NG tube to ensure do not need to replace NG before PEG # Bipolar Disorder - Continue Seroquel 100mg nightly - C/w valproate 300mg q6h > level 25mg/L 08/29 - INSTANT POWDER SUPERVISOR following, NPO at present - Psychiatry [...] Medicine PGY2 Medicine Team: Jose Juan, Pager #[phone] Date: 09/06/2022 Associated attestation - Richard Pascal [...] of two midnights or is on the [facility] inpatient only procedure list (status C) due [...] physician. These images were archived digitally in [employer] and I independently interpreted the images at [...] RD??c/b??esophagitis &??Farrell's esophagus, who was admitted to [facility] on 08/14/2022 (now on Hospital Day #21), [...] Richard Pascal MD PCP: Chris Stanley APRN ([phone]) No chief complaint on file. ID: Ishan Irving is a 62 y.o. 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.5 years) c/b chronic pancreatitis, iron deficiency anemia, ??GERD??c/b??esophagitis &??Farrell's esophagus, who was admitted to [facility] on 08/14/2022 (now on Hospital Day #22), [...] Gas): No results found for: PHART, PO2ART, HYT2IZV, RYG1SOL VBG (Venous Blood Gas): No results for input(s): PHVEN, GFU1ZOO, PO2VEN, JIT3PLD, BEVEN, FXL1EQJ in the last 72 hours. EKG: Lab [...] (64) on 09/01/2022 4:28:11 PM QTCCALC 475 09/01/20224 Vascular: No results found for: VBTEXTRPT Microbiology: [...] Date/Time Lower Respiratory Culture Bronchial Alveolar Lavage [[id number]] Collected: 08/21/22 1650 Lab Status: Final result Specimen: Bronchial Alveolar Lavage Updated: 08/23/22 0741 Lower Respiratory Culture Rare mixed bacterial morphotypes suggestive of normal upper respiratory wiley Gram Stain -- Few Neutrophils seen No squamous epithelial cells seen No microorganisms seen. Fungus Culture & Calc Stain Bronchial Alveolar Lavage [[id number]] (Abnormal) Collected: 08/21/221649 Lab Status: Preliminary result Specimen: Bronchial Alveolar Lavage Updated: 08/24/22 1452 AFB culture Bronchial Alveolar Lavage [[id number]] Collected: 08/21/221649 Lab Status: Preliminary result Specimen: Bronchial Alveolar Lavage Updated: 08/24/22 2219 Acid Fast Bacilli Culture -- No Acid Fast Bacilli isolated to date If active tuberculosis is suspected, the patient should be on AIRBORNE PRECAUTIONS. Call Infection Prevention for assistance if needed. Acid Fast Stain No Acid Fast Bacilli seen Fungus culture [[id number]] (Abnormal) Collected: 08/21/221649 Lab Status: Preliminary result Specimen: Bronchial Alveolar Lavage Updated: 08/24/22 145 Fungus Culture Rare Jacky albicans Calcofluor White Stain [[id number]] Collected: 08/21/221649 Lab Status: Final result Specimen: Bronchial Alveolar Lavage Updated: 08/21/22 2016 Calcofluor Stain Calcofluor White Preparation: Negative Lower Respiratory Culture Bronchial Alveolar Lavage [[id number]] Collected: 08/21/221644 Lab Status: Final result Specimen: Bronchial Alveolar Lavage Updated: 08/23/22 0741 Lower Respiratory Culture Rare mixed bacterial morphotypes suggestive of normal upper respiratory wiley Gram Stain -- Moderate Neutrophils seen No squamous epithelial cells seen No microorganisms seen. Fungus Culture & Calc Stain Bronchial Alveolar Lavage [[id number]] (Abnormal) Collected: 08/21/221644 Lab Status: Preliminary result Specimen: Bronchial Alveolar Lavage Updated: 08/24/22 1453 AFB culture Bronchial Alveolar Lavage [[id number]] Collected: 08/21/221644 Lab Status: Preliminary result Specimen: Bronchial Alveolar Lavage Updated: 08/24/22 2221 Acid Fast Bacilli Culture -- No Acid Fast Bacilli isolated to date If active tuberculosis is suspected, the patient should be on AIRBORNE PRECAUTIONS. Call Infection Prevention for assistance if needed. Acid Fast Stain No Acid Fast Bacilli seen Fungus culture [[id number]] (Abnormal) Collected: 08/21/221644 Lab Status: Preliminary result Specimen: Bronchial Alveolar Lavage Updated: 08/24/22 145 Fungus Culture Rare Jacky albicans Calcofluor White Stain [[id number]] Collected: 08/21/22 1645 Lab Status: Final result Specimen: Bronchial Alveolar Lavage Updated: 08/21/22 2017 Calcofluor Stain Calcofluor White Preparation: Negative Blood culture [[id number]] Collected: 08/19/22 1720 Lab Status: Final result Specimen: Blood Updated: 08/24/22 2301 Blood Culture No growth at 5 days. Lower Respiratory Culture Sputum Induced [[id number]] Collected: 08/19/22 1451 Lab Status: Final result Specimen: Sputum Induced Updated: 08/21/22 0948 Lower Respiratory Culture Rare mixed bacterial morphotypes suggestive of normal upper respiratory wiley Gram Stain -- Many Neutrophils seen Few squamous epithelial cells seen No microorganisms seen. Blood culture [[id number]] Collected: 08/19/22 1330 Lab Status: Final result Specimen: Blood Updated: 08/24/22 1501 Blood Culture No growth at 5 days. Legionella Urinary Antigen [[id number]] Collected: 08/18/22 1013 Lab Status: Final result [...] Catheter Urine; Other; sepsis, bacteria on UA [[id number]] Collected: 08/15/22 1225 Lab Status: Final result Specimen: Indwelling Catheter Urine Updated: 08/16/22 0804 Urine Culture 1,000-9,000 cfu/ml Insignificant growth COVID-19 PCR [[id number]] Collected: 08/15/22 1150 Lab Status: Final result [...] using the Simplexa COVID-19 Direct Assay by [employer] as authorized by the FDA issued Emergency [...] Department of Pathology and Laboratory Medicine at [facility], certified under the Clinical Laboratory Improvement Amendments [...] fact sheets at the following FDA website: https://www.fda.gov/medical-devices/higcitoprqb-tsquoya-7824-bqxjv-55-reegrnehu- iow-mmtktzhznhmbbn-ithqtzo-devices/jfaan-fnrkrzdlafj-kvsz SARS-CoV-2 Source TRAIN GATE ATTENDANT Swab Lower Respiratory Culture Sputum Induced [[id number]] Collected: 08/15/22 0740 Lab Status: Final result Specimen: Sputum Induced Updated: 08/17/22 1015 Lower Respiratory Culture Rare normal upper respiratory wiley Gram Stain -- Many Neutrophils Few squamous epithelial cells Rare mixed bacterial morphotypes suggestive of normal upper respiratory wiley Blood culture [[id number]] Collected: 08/15/22 0110 Lab Status: Final result Specimen: Blood Updated: 08/20/22 0701 Blood Culture No growth at 5 days. MRSA PCR Screen ([facility]/CGP/APD/NLH) [[id number]] Collected: 08/15/22 0050 Lab Status: Final result Specimen: Nasopharyngeal Swab Updated: 08/17/22 1419 MRSA Result Negative MRSA Interp -- Methicillin-resistant Staphylococcus aureus (MRSA) is NOT DETECTED The MRSA target DNA sequences (mec and SCC) were not detected within the acceptable ranges using the Xpert MRSA NxG on the GeneXpert Dx System ([employer]). This suggests the absence of MRSA in the patient specimen submitted for testing. This test is cleared by the U.S. Food and Drug Administration for clinical use and its performance characteristics have been verified by the [facility] at [facility]. This result does not rule out the presence of any other organisms. Rare false negative results may occur if MRSA is present at low concentrations with much higher concentrations of other organisms including MRSE or S. aureus with an empty SCC cassette. Comment: [VERIFIED DATE]08.17.22 Verified By:Shannon Smiley (Electronic Signature) Blood culture [[id number]] Collected: 08/14/22 2355 Lab Status: Final result [...] who have questions please contact the health coronary care unit nurse that requested your imaging [...] who have questions please contact the health coronary care unit nurse that requested your imaging [...] who have questions please contact the health coronary care unit nurse that requested your imaging [...] who have questions please contact the health coronary care unit nurse that requested your imaging [...] who have questions please contact the health coronary care unit nurse that requested your imaging first. Head wo Contrast (Generic) (Exam End: 08/16/2022 10:44 PM) Impression No acute intracranial abnormality and no change from prior Thank you for letting us participate in the care of this patient. If you are a health care provider and have any questions regarding this report, please contact the number below. For patients who have questions please contact the health coronary care unit nurse that requested your imaging first. Electronically signed by: Moustapha Correa MD, [facility] ([phone]), at 08/16/2022 11:19 PM XR Abdomen 1 [...] who have questions please contact the health coronary care unit nurse that requested your imaging first. Head wo Contrast (Generic) (Exam End: 08/18/2022 3:14 PM) Impression No acute intracranial process. Thank you for letting us participate in the care of this patient. If you are a health care provider and have any questions regarding this report, please contact the number below. For patients who have questions please contact the health coronary care unit nurse that requested your imaging first. Chest One View (Exam End: 08/19/2022 12:30 [...] who have questions please contact the health coronary care unit nurse that requested your imaging first. Brain wo Contrast (Exam End: 08/19/2022 10:15 PM) Impression No acute infarction, mass or mass effect. Thank you for letting us participate in the care of this patient. If you are a health care provider and have any questions regarding this report, please contact the number below. For patients who have questions please contact the health coronary care unit nurse that requested your imaging first. Chest for [...] who have questions please contact the health coronary care unit nurse that requested your imaging first. Hip w Contrast Left (Exam End: 08/20/2022 [...] who have questions please contact the health coronary care unit nurse that requested your imaging first. Chest w Contrast (Exam End: 08/20/2022 11:04 [...] who have questions please contact the health coronary care unit nurse that requested your imaging first. Hip 2-3 Views Left (Exam End: 08/22/2022 12:19 AM) Impression No radiographic evidence of infection. Thank you for letting us participate in the care of this patient. If you are a health care provider and have any questions regarding this report, please contact the number below. For patients who have questions please contact the health coronary care unit nurse that requested your imaging first. Electronically signed by: Viktor Cervantes MD, [facility] ([phone]), at 08/22/2022 12:43 PM XR Pelvis (Generic) (Exam End: 08/22/2022 12:19 AM) Impression No radiographic evidence of infection status post left hip ORIF. Thank you for letting us participate in the care of this patient. If you are a health care provider and have any questions regarding this report, please contact the number below. For patients who have questions please contact the health coronary care unit nurse that requested your imaging first. Electronically signed by: Richard Billings MD, [facility] ([phone]), at 08/22/2022 10:[address] Angiogram Coronary [...] who have questions please contact the health coronary care unit nurse that requested your imaging first. Chest wo Contrast (Generic) (Exam End: 08/27/2022 8:58 AM) Impression Stable findings of multifocal pneumonia. No interval abnormality. Thank you for letting us participate in the care of this patient. If you are a health care provider and have any questions regarding this report, please contact the number below. For patients who have questions please contact the health coronary care unit nurse that requested your imaging first. Fluoro Barium [...] who have questions please contact the health coronary care unit nurse that requested your imaging first. Fluoro Barium [...] interpretation and agree with the findings, Alfonso Adasm MD at 09/04/2022 10:57 AM Thank you for letting us participate in the care of this patient. If you are a health care provider and have any questions regarding this report, please contact the number below. For patients who have questions please contact the health coronary care unit nurse that requested your imaging first. Abdomen 1 view (Generic) (Exam End: 09/04/2022 [...] who have questions please contact the health coronary care unit nurse that requested your imaging [...] who have questions please contact the health coronary care unit nurse that requested your imaging first. Medications: Scheduled: [...] anemia,??GERD??c/b??esophagitis &??Farrell's esophagus, who was admitted to [facility] on 08/14/2022 (now on Hospital Day #22) [...] level 08/29. - level 25mg/L 08/29 - INSTANT POWDER SUPERVISOR to evaluate, Recommend NPO at present [...] Medicine PGY1 Medicine Team: Jose Juan, Pager #[phone] Date: 09/05/2022 Associated attestation - Richard Pascal [...] of two midnights or is on the [facility] inpatient only procedure list (status C) due [...] in the recent past. * Elsie Erickson, NUT SIFTER - 09/05/2022 7:10 AM EDT Follow Up [...] deficiency anemia,??GERD??c/b??esophagitis &??Farrell's esophagus??presenting in transfer from [facility], suspected to be in cardiogenic shock [...] of 110 mls/hr Monitoring:??Q4 Elsie Erickson APRN [facility] Endocrinology Diabetes Management Pager [phone] 20 minutes of this 35 minute visit was spent with the patient in counseling on diabetes and treatment plan, reviewing all glucose and insulin data as well as relevant laboratory results with the patient, and coordination of care on the inpatient unit including nursing and primary team. * Feroz Portillo, DANCING MASTER - 09/04/2022 1:50 PM EDT Physical Therapy [...] deficiency anemia,??GERD??c/b??esophagitis &??Farrell's esophagus??presenting in transfer from [facility], suspected to be in cardiogenic shock [...] goals of rx, activity progression Assessment: Ishan Orlando Aristides was seen today [...] TE-F x 3 FEROZ PORTILLO PTA Pager: [phone] Physical Therapy Inpatient Rehabilitation Department * Micheline Long, INSTANT POWDER SUPERVISOR - 09/04/2022 9:48 AM EDT Speech-Language Pathology Modified Barium Swallow Re-Evaluation ?? Patient Profile:??Ishan Irving is a 62 year old female with a medical history notable for??recent L femoral neck fracture,??bipolar disorder, resolving medication-induced Parkinsonism, insulin-dependent diabetes mellitus,??hx of alcohol use disorder (reported to be in remission for 1.5 years)c/b chronic pancreatitis, iron deficiency anemia,??GERD??c/b??esophagitis &??Farrell's esophagus??presenting in transfer from [facility]??on 08/14/2022, suspected to be in cardiogenic shock and found to be in mixed shock with concern for stress cardiomyopathy.??INSTANT POWDER SUPERVISOR service was consulted to assess oropharyngeal [...] Modified Barium Swallow Study (08/31/2022) - Petty Sprenger, INSTANT POWDER SUPERVISOR ??? Audible aspiration with thin liquids [...] nutrition/hydration to provide nutrition during rehab course. INSTANT POWDER SUPERVISOR will f/u for ongoing swallow intervention [...] dependent Cognitive-Linguistic Status: delayed processing per primary INSTANT POWDER SUPERVISOR; Pt presented today with a flat [...] Presentation(s): (all mixed with Barium) Thin liquid [employer] consistency thickened liquid Puree Regular consistency Oral [...] head in the, Thin liquid: pyriform sinuses [employer] thick liquid: valleculae Puree: valleculae Regular: valleculae [...] penetration, via straw (sequential sips)- audible aspiration [employer] thick liquids: via straw (single and sequential [...] of alertness and/or delirium Advanced age Education: INSTANT POWDER SUPERVISOR informed pt that she would return to talk to her about the results and updated recommendations. Results and recommendations relayed to Irwin Jones MD via secure chat. Addendum: INSTANT POWDER SUPERVISOR returned to pt's room at 1230 [...] agreement with the treatment plan and informed INSTANT POWDER SUPERVISOR of her continued goal to resume [...] this regurgitation was also witnessed by primary INSTANT POWDER SUPERVISOR Petty Mccullough in the most recent treatment session and was reported to the primary INSTANT POWDER SUPERVISOR to be consistent with her baseline [...] with trials of nectar thick liquids with INSTANT POWDER SUPERVISOR only. As pt's mental status continues to improve, she may benefit from swallow exercises targeting the pharyngeal phase of the swallow. However, swallow safety and efficiency appear significantly impacted by the esophageal phase of the swallow. Pt will require alternative means of nutrition to meet nutritional needs. Pt would benefit from skilled INSTANT POWDER SUPERVISOR services to maximize swallow function and safety to address limitations as noted above. Primary INSTANT POWDER SUPERVISOR Petty Mccullough will continue to follow. [...] in ongoing cognitive-linguistic evaluation. Plan: Therapy Frequency (INSTANT POWDER SUPERVISOR Eval): 3-5x/wk Pt unable to give informed agreement with plan at this time due to decreased MS. Total Minutes (Speech Language Pathology): 30 Thank you for this consult with this patient. Please feel free to page me with any questions or concerns. Micheline Long, MS, [facility]-INSTANT POWDER SUPERVISOR Speech-Language Pathologist Pager # [phone] * [...] Tenisha Sandy MD PCP: Chris Stanley APRN ([phone]) No chief complaint on file. ID: Ishan Irving is a 62 y.o. 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.5 years) c/b chronic pancreatitis, iron deficiency anemia, ??GERD??c/b??esophagitis &??Farrell's esophagus, who was admitted to [facility] on 08/14/2022 (now on Hospital Day #21), and transferred to Hospital Medicine team from Cardiology on 08/30 for mixed shock with concern for stress cardiomyopathy (Takotsubo Cardiomyopathy). 24 HOUR EVENTS & SUBJECTIVE: Yesterday: - INSTANT POWDER SUPERVISOR evaluated, NPO, ice chips for pleasure recommended yesterday, plan for MBS without FT tomorrow - Palliative Care consulted and met with patient - OT met with patient, recommend acute rehab facility - Psych met with patient, recommended continuing once daily dosing of Bupropion IR - GI consulted and recommends patient continue working w/INSTANT POWDER SUPERVISOR, can consider PEG if inadequate improvement [...] Gas): No results found for: PHART, PO2ART, CJP8XBS, WYC5PHZ VBG (Venous Blood Gas): No results for input(s): PHVEN, TKC5BHF, PO2VEN, LRN0RQU, BEVEN, XGW7PXZ in the last 72 hours. EKG: Lab [...] Date/Time Lower Respiratory Culture Bronchial Alveolar Lavage [[id number]] Collected: 08/21/221649 Lab Status: Final result Specimen: Bronchial Alveolar Lavage Updated: 08/23/22740 Lower Respiratory Culture Rare mixed bacterial morphotypes suggestive of normal upper respiratory wiley Gram Stain -- Few Neutrophils seen No squamous epithelial cells seen No microorganisms seen. Fungus Culture & Calc Stain Bronchial Alveolar Lavage [[id number]] (Abnormal) Collected: 08/21/221649 Lab Status: Preliminary result Specimen: Bronchial Alveolar Lavage Updated: 08/24/22 145 AFB culture Bronchial Alveolar Lavage [[id number]] Collected: 08/21/221649 Lab Status: Preliminary result Specimen: Bronchial Alveolar Lavage Updated: 08/24/222218 Acid Fast Bacilli Culture -- No Acid Fast Bacilli isolated to date If active tuberculosis is suspected, the patient should be on [employer] PRECAUTIONS. Call Infection Prevention for assistance if needed. Acid Fast Stain No Acid Fast Bacilli seen Fungus culture [[id number]] (Abnormal) Collected: 08/21/221649 Lab Status: Preliminary result Specimen: Bronchial Alveolar Lavage Updated: 08/24/221451 Fungus Culture Rare Jacky albicans Calcofluor White Stain [[id number]] Collected: 08/21/221649 Lab Status: Final result Specimen: Bronchial Alveolar Lavage Updated: 08/21/22 2016 Calcofluor Stain Calcofluor White Preparation: Negative Lower Respiratory Culture Bronchial Alveolar Lavage [[id number]] Collected: 08/21/221644 Lab Status: Final result Specimen: Bronchial Alveolar Lavage Updated: 08/23/22740 Lower Respiratory Culture Rare mixed bacterial morphotypes suggestive of normal upper respiratory wiley Gram Stain -- Moderate Neutrophils seen No squamous epithelial cells seen No microorganisms seen. Fungus Culture & Calc Stain Bronchial Alveolar Lavage [[id number]] (Abnormal) Collected: 08/21/221644 Lab Status: Preliminary result Specimen: Bronchial Alveolar Lavage Updated: 08/24/22 1453 AFB culture Bronchial Alveolar Lavage [[id number]] Collected: 08/21/221644 Lab Status: Preliminary result Specimen: Bronchial Alveolar Lavage Updated: 08/24/22 2221 Acid Fast Bacilli Culture -- No Acid Fast Bacilli isolated to date If active tuberculosis is suspected, the patient should be on [employer] PRECAUTIONS. Call Infection Prevention for assistance if needed. Acid Fast Stain No Acid Fast Bacilli seen Fungus culture [[id number]] (Abnormal) Collected: 08/21/221644 Lab Status: Preliminary result Specimen: Bronchial Alveolar Lavage Updated: 08/24/22 145 Fungus Culture Rare Jacky albicans Calcofluor White Stain [[id number]] Collected: 08/21/221644 Lab Status: Final result Specimen: Bronchial Alveolar Lavage Updated: 08/21/22 2017 Calcofluor Stain Calcofluor White Preparation: Negative Blood culture [[id number]] Collected: 08/19/22 1720 Lab Status: Final result Specimen: Blood Updated: 08/24/22 2301 Blood Culture No growth at 5 days. Lower Respiratory Culture Sputum Induced [[id number]] Collected: 08/19/22 1451 Lab Status: Final result Specimen: Sputum Induced Updated: 08/21/22 0948 Lower Respiratory Culture Rare mixed bacterial morphotypes suggestive of normal upper respiratory wiley Gram Stain -- Many Neutrophils seen Few squamous epithelial cells seen No microorganisms seen. Blood culture [[id number]] Collected: 08/19/22 1330 Lab Status: Final result Specimen: Blood Updated: 08/24/22 1501 Blood Culture No growth at 5 days. Legionella Urinary Antigen [[id number]] Collected: 08/18/22 1013 Lab Status: Final result [...] Catheter Urine; Other; sepsis, bacteria on UA [[id number]] Collected: 08/15/22 1225 Lab Status: Final result Specimen: Indwelling Catheter Urine Updated: 08/16/22 0804 Urine Culture 1,000-9,000 cfu/ml Insignificant growth COVID-19 PCR [[id number]] Collected: 08/15/22 1150 Lab Status: Final result [...] using the Simplexa COVID-19 Direct Assay by [employer] as authorized by the FDA issued Emergency [...] Department of Pathology and Laboratory Medicine at [facility], certified under the Clinical Laboratory Improvement Amendments [...] fact sheets at the following FDA website: https://www.fda.gov/medical-devices/extkrorriwd-bxhqxfc-5092-ehlwm-67-axgkwzuzy- toy-syomucxpajsxtx-qlwmumy-devices/rdmlx-fisrmfhbizz-afqh SARS-CoV-2 Source TRAIN GATE ATTENDANT Swab Lower Respiratory Culture Sputum Induced [[id number]] Collected: 08/15/22 0740 Lab Status: Final result Specimen: Sputum Induced Updated: 08/17/22 1015 Lower Respiratory Culture Rare normal upper respiratory wiley Gram Stain -- Many Neutrophils Few squamous epithelial cells Rare mixed bacterial morphotypes suggestive of normal upper respiratory wiley Blood culture [[id number]] Collected: 08/15/22 0110 Lab Status: Final result Specimen: Blood Updated: 08/20/22 0701 Blood Culture No growth at 5 days. MRSA PCR Screen ([facility]P/APD/[facility]) [[id number]] Collected: 08/15/22 0050 Lab Status: Final result Specimen: Nasopharyngeal Swab Updated: 08/17/22 1419 MRSA Result Negative MRSA Interp -- Methicillin-resistant Staphylococcus aureus (MRSA) is NOT DETECTED The MRSA target DNA sequences (mec and SCC) were not detected within the acceptable ranges using the Xpert MRSA NxG on the GeneXpert Dx System ([employer]). This suggests the absence of MRSA in the patient specimen submitted for testing. This test is cleared by the U.S. Food and Drug Administration for clinical use and its performance characteristics have been verified by the [facility] at [facility]. This result does not rule out the presence of any other organisms. Rare false negative results may occur if MRSA is present at low concentrations with much higher concentrations of other organisms including MRSE or S. aureus with an empty SCC cassette. Comment: [VERIFIED DATE]08.17.22 Verified By:Shannon Smiley (Electronic Signature) Blood culture [[id number]] Collected: 08/14/22 2094 Lab Status: Final result Specimen: Blood Updated: [...] who have questions please contact the health coronary care unit nurse that requested your imaging [...] who have questions please contact the health coronary care unit nurse that requested your imaging [...] who have questions please contact the health coronary care unit nurse that requested your imaging [...] who have questions please contact the health coronary care unit nurse that requested your imaging [...] who have questions please contact the health coronary care unit nurse that requested your imaging first. Head wo Contrast (Generic) (Exam End: 08/16/2022 10:44 PM) Impression No acute intracranial abnormality and no change from prior Thank you for letting us participate in the care of this patient. If you are a health care provider and have any questions regarding this report, please contact the number below. For patients who have questions please contact the health coronary care unit nurse that requested your imaging first. Electronically signed by: Moustapha Correa MD, [facility] ([phone]), at 08/16/2022 11:19 PM XR Abdomen 1 [...] who have questions please contact the health coronary care unit nurse that requested your imaging first. Head wo Contrast (Generic) (Exam End: 08/18/2022 3:14 PM) Impression No acute intracranial process. Thank you for letting us participate in the care of this patient. If you are a health care provider and have any questions regarding this report, please contact the number below. For patients who have questions please contact the health coronary care unit nurse that requested your imaging first. Chest One View (Exam End: 08/19/2022 12:30 [...] who have questions please contact the health coronary care unit nurse that requested your imaging first. Brain wo Contrast (Exam End: 08/19/2022 10:15 PM) Impression No acute infarction, mass or mass effect. Thank you for letting us participate in the care of this patient. If you are a health care provider and have any questions regarding this report, please contact the number below. For patients who have questions please contact the health coronary care unit nurse that requested your imaging first. Chest for [...] who have questions please contact the health coronary care unit nurse that requested your imaging first. Hip w Contrast Left (Exam End: 08/20/2022 [...] who have questions please contact the health coronary care unit nurse that requested your imaging first. Chest w Contrast (Exam End: 08/20/2022 11:04 [...] who have questions please contact the health coronary care unit nurse that requested your imaging first. Hip 2-3 Views Left (Exam End: 08/22/2022 12:19 AM) Impression No radiographic evidence of infection. Thank you for letting us participate in the care of this patient. If you are a health care provider and have any questions regarding this report, please contact the number below. For patients who have questions please contact the health coronary care unit nurse that requested your imaging first. Electronically signed by: Viktor Cervantes MD, [facility] ([phone]), at 08/22/2022 12:43 PM XR Pelvis (Generic) (Exam End: 08/22/2022 12:19 AM) Impression No radiographic evidence of infection status post left hip ORIF. Thank you for letting us participate in the care of this patient. If you are a health care provider and have any questions regarding this report, please contact the number below. For patients who have questions please contact the health coronary care unit nurse that requested your imaging first. Electronically signed by: Richard Billings MD, [facility] ([phone]), at 08/22/2022 10:[address] Angiogram Coronary [...] who have questions please contact the health coronary care unit nurse that requested your imaging first. Chest wo Contrast (Generic) (Exam End: 08/27/2022 8:58 AM) Impression Stable findings of multifocal pneumonia. No interval abnormality. Thank you for letting us participate in the care of this patient. If you are a health care provider and have any questions regarding this report, please contact the number below. For patients who have questions please contact the health coronary care unit nurse that requested your imaging first. Fluoro Barium [...] who have questions please contact the health coronary care unit nurse that requested your imaging first. Medications: Scheduled: ??? melatonin 6 mg Oral [...] anemia,??GERD??c/b??esophagitis &??Farrell's esophagus, who was admitted to [facility] on 08/14/2022 (now on Hospital Day #21) [...] - Continue therapy with PT, OT, and INSTANT POWDER SUPERVISOR - Diet pending MBS results milvia Neuro: # Bipolar Disorder - Depakote 300 mg oral liquid per Dobhoff tube q6hr. - Continue Seroquel 100mg nightly - Will check VPA trough level 08/29. - level 25mg/L 08/29 - INSTANT POWDER SUPERVISOR to evaluate, Recommend NPO at present [...] Medicine PGY1 Medicine Team: Jose Juan, Pager #[phone] Date: 09/04/2022 Associated attestation - Tenisha Sandy [...] of two midnights or is on the [facility] inpatient only procedure list (status C) due [...] improved with use of wellbutrin. Will continue INSTANT POWDER SUPERVISOR and consider trial ofnectar thick with [...] deficiency anemia,??GERD??c/b??esophagitis &??Farrell's esophagus??presenting in transfer from [facility], suspected to be in cardiogenic shock [...] OT arrival. Agrees to get OOB to commode. ?? States she has a fungal infection. Skin at gavin-area inspected. Pt red in gavin-area and has yunior buttocks. Nurse aware. ?? Supine to sit at EOB under supervision with HOB elevated to 45* for aspiration precautions ?? Independent sitting balance at EOB ?? Donned both slipper socks independently with legs on bed ?? Commode brought bedside bed for stand pivot transfer. [...] [facility] I need to sit. I'm going to fall? Pt sat on commode quickly. ?? Sit to stand attempted twice from commode. Pt immediately sitting out of fear. ?? [...] 2-4 times/wk Total Minutes, Occupational Therapy: 44 ([phone] 3 TA) Pager: [phone] Alicia Cook OT 09/03/2022 Occupational Therapy Rehabilitation Department * Shashi Young - 09/03/2022 10:36 AM EDT Yony Encounter Note Patient Name: Ishan Irving : [id number] MR#: [id number] Admit Date: 08/14/2022 11:11 PM Hospital Day [...] hands. Patient and her expressed appreciation. Follow-up: Solution Analyst will continue to offer support to patient as needed. Time in Direct Care: 15 Shashi Young 09/03/2022 * Nancy Ernst, RD - 09/03/2022 8:27 AM EDT Nutrition Progress Note Ishan Irving is a 62 y.o.??female??with h/o bipolar, DM, EtOH, esophagitis, who presented to [facility] 3 days ago after being found unresponsive at home.?Patient found to have likely pneumonia +/- aspiration, newly reduced EF. Reason for Assessment: Follow-up, Tube Feeding Nutrition Recommendations: Enteral Nutrition: Cyclic Peptamen AF at 110ml/hr for 12hrs from 2006-1205 At goal, this will provide: Peptamen AF Total Volume Per Day: 1320 mL Scoops of Protein: 0 Calories per Day: 1584 Protein per Day: 100 g Free Water mL per Day: 1072 % RDI: 106 % Monitor hydration status on above TFs as they are concentrated. Pt may need additional fluids depending on IVFs, med flushes, p.o. Intake, etc. Diet per INSTANT POWDER SUPERVISOR Monitor weight to trend Monitor BM. [...] Peptamen AF at 110ml/hr for 12hrs from 1488-1272 Average tube feeding provision over past 3 [...] of this encounter: 69.9 kg (154 lb). [place] Body Weight (IBW) (kg): 45.45 Usual Body [...] Assessed Needs: Fluid Requirements (mL/day): 2562 mL [place] Kcal / K - 1737.5 Kcal (20 [...] 08/25 r/t liquid tylenol, d/c per this insurance underwriter's request as liquid tylenol acts as a [...] up while inpatient Nancy Ernst RD Pager #:[phone] * Petty Mccullough SLP - 09/03/2022 8:20 AM EDT Speech Therapy Note Patient Profile:??Ishan Irving is a 62 year old female with a medical history notable for??recent L femoral neck fracture,??bipolar disorder, resolving medication-induced Parkinsonism, insulin-dependent diabetes mellitus,??hx of alcohol use disorder (reported to be in remission for 1.5 years)c/b chronic pancreatitis, iron deficiency anemia,??GERD??c/b??esophagitis &??Farrell's esophagus??presenting in transfer from [facility]??on 08/14/2022, suspected to be in cardiogenic shock and found to be in mixed shock with concern for stress cardiomyopathy.??INSTANT POWDER SUPERVISOR following for swallow, cognitive tx. MBS completed 08/31/22 noting moderate-severe oropharyngeal dysphagia. ?? Lines/Drains: DHT(08/17/22), PICC Precautions: Fall risk, Aspiration risk, Delirium and High risk skin breakdown Continuous Interventions: ??? tube feeding diet 1,320 mL (09/03/22 0602) Interval History: Continues to demonstrate overall improvement with Wellbutrin. Discussed Pt with Dr. Jones and need for repeat MBS due to silent aspiration with denice on previous exam. In agreement for repeat [...] Pt was seen today for a follow-up INSTANT POWDER SUPERVISOR visit. ??? Oropharyngeal swallow function is [...] in ongoing cognitive-linguistic evaluation. Plan: Therapy Frequency (INSTANT POWDER SUPERVISOR Eval): 3-5 times/wk Pt./family are in agreement with treatment plan. Total Minutes (Speech Language Pathology): 40 Petty Mccullough M.S., [facility]-INSTANT POWDER SUPERVISOR Inpatient Speech-Pathology Pager: [phone] * Irwin Jones MD - 09/03/2022 7:13 AM EDT Images from the original note were not included. Inpatient Hospital Medicine Progress Note 09/03/2022 Patient Name: ISHAN IRVING Date of : 1960 Age: 62 y.o. Hospital Admit Date: 08/14/2022 Hospital Day: 20 Inpatient Attending: Tenisha Sandy MD PCP: Chris Stanley APRN ([phone]) No chief complaint on file. ID: Ishan Irving is a 62 y.o. 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.5 years) c/b chronic pancreatitis, iron deficiency anemia, ??GERD??c/b??esophagitis &??Farrell's esophagus, who was admitted to [facility] on 08/14/2022 (now on Hospital Day #20), and transferred to Hospital Medicine team from Cardiology on 08/30 for mixed shock with concern for stress cardiomyopathy (Takotsubo Cardiomyopathy). 24 HOUR EVENTS & SUBJECTIVE: Yesterday: - INSTANT POWDER SUPERVISOR evaluated, NPO, ice chips for pleasure recommended - Palliative Care consulted and met with patient - PT met with patient, recommend acute rehab versus swing bed when medically ready for discharge - Psych met with patient, recommended once daily dosing of Bupropion IR - GI consulted and recommends patient continue working w/INSTANT POWDER SUPERVISOR, can consider PEG if inadequate improvement [...] Intake/Output Summary (Last 24 hours) at 09/03/2022 07 Last data filed at 09/03/2022 0602 Gross [...] Gas): No results found for: PHART, PO2ART, KGW1GOZ, KVO9LKW VBG (Venous Blood Gas): No results for input(s): PHVEN, DCD6YZG, PO2VEN, LCA3XZA, BEVEN, NGK4HHZ in the last 72 hours. EKG: Lab [...] Date/Time Lower Respiratory Culture Bronchial Alveolar Lavage [[id number]] Collected: 08/21/221649 Lab Status: Final result Specimen: Bronchial Alveolar Lavage Updated: 08/23/22740 Lower Respiratory Culture Rare mixed bacterial morphotypes suggestive of normal upper respiratory wiley Gram Stain -- Few Neutrophils seen No squamous epithelial cells seen No microorganisms seen. Fungus Culture & Calc Stain Bronchial Alveolar Lavage [[id number]] (Abnormal) Collected: 08/21/221649 Lab Status: Preliminary result Specimen: Bronchial Alveolar Lavage Updated: 08/24/22 145 AFB culture Bronchial Alveolar Lavage [[id number]] Collected: 08/21/221649 Lab Status: Preliminary result Specimen: Bronchial Alveolar Lavage Updated: 08/24/222218 Acid Fast Bacilli Culture -- No Acid Fast Bacilli isolated to date If active tuberculosis is suspected, the patient should be on AIRBORNE PRECAUTIONS. Call Infection Prevention for assistance if needed. Acid Fast Stain No Acid Fast Bacilli seen Fungus culture [[id number]] (Abnormal) Collected: 08/21/221649 Lab Status: Preliminary result Specimen: Bronchial Alveolar Lavage Updated: 08/24/22 145 Fungus Culture Rare Jacky albicans Calcofluor White Stain [[id number]] Collected: 08/21/221649 Lab Status: Final result Specimen: Bronchial Alveolar Lavage Updated: 08/21/22 2016 Calcofluor Stain Calcofluor White Preparation: Negative Lower Respiratory Culture Bronchial Alveolar Lavage [[id number]] Collected: 08/21/221644 Lab Status: Final result Specimen: Bronchial Alveolar Lavage Updated: 08/23/22740 Lower Respiratory Culture Rare mixed bacterial morphotypes suggestive of normal upper respiratory wiley Gram Stain -- Moderate Neutrophils seen No squamous epithelial cells seen No microorganisms seen. Fungus Culture & Calc Stain Bronchial Alveolar Lavage [[id number]] (Abnormal) Collected: 08/21/22 164 Lab Status: Preliminary result Specimen: Bronchial Alveolar Lavage Updated: 08/24/22 1453 AFB culture Bronchial Alveolar Lavage [[id number]] Collected: 08/21/22 164 Lab Status: Preliminary result Specimen: Bronchial Alveolar Lavage Updated: 08/24/22 2221 Acid Fast Bacilli Culture -- No Acid Fast Bacilli isolated to date If active tuberculosis is suspected, the patient should be on AIRBORNE PRECAUTIONS. Call Infection Prevention for assistance if needed. Acid Fast Stain No Acid Fast Bacilli seen Fungus culture [[id number]] (Abnormal) Collected: 08/21/221644 Lab Status: Preliminary result Specimen: Bronchial Alveolar Lavage Updated: 08/24/22 145 Fungus Culture Rare Jacky albicans Calcofluor White Stain [[id number]] Collected: 08/21/221644 Lab Status: Final result Specimen: Bronchial Alveolar Lavage Updated: 08/21/22 2017 Calcofluor Stain Calcofluor White Preparation: Negative Blood culture [[id number]] Collected: 08/19/22 1720 Lab Status: Final result Specimen: Blood Updated: 08/24/22 2301 Blood Culture No growth at 5 days. Lower Respiratory Culture Sputum Induced [[id number]] Collected: 08/19/22 1451 Lab Status: Final result Specimen: Sputum Induced Updated: 08/21/22 0948 Lower Respiratory Culture Rare mixed bacterial morphotypes suggestive of normal upper respiratory wiley Gram Stain -- Many Neutrophils seen Few squamous epithelial cells seen No microorganisms seen. Blood culture [[id number]] Collected: 08/19/22 1330 Lab Status: Final result Specimen: Blood Updated: 08/24/22 1501 Blood Culture No growth at 5 days. Legionella Urinary Antigen [[id number]] Collected: 08/18/22 1013 Lab Status: Final result [...] Catheter Urine; Other; sepsis, bacteria on UA [[id number]] Collected: 08/15/22 1225 Lab Status: Final result Specimen: Indwelling Catheter Urine Updated: 08/16/22 0804 Urine Culture 1,000-9,000 cfu/ml Insignificant growth COVID-19 PCR [[id number]] Collected: 08/15/22 1150 Lab Status: Final result [...] diagnosis of COVID-19 is performed using the [employer] COVID-19 Direct Assay by [employer] as authorized by the FDA issued Emergency [...] Department of Pathology and Laboratory Medicine at [facility], certified under the Clinical Laboratory Improvement Amendments [...] fact sheets at the following FDA website: https://www.fda.gov/medical-devices/fnfhskromat-ayqccdi-7561-udywg-66-vefrrurkc- uxl-nhgewzygrajabj-lwfcras-devices/ylbts-pqqzngejyqa-eict SARS-CoV-2 Source TRAIN GATE ATTENDANT Swab Lower Respiratory Culture Sputum Induced [[id number]] Collected: 08/15/22 0740 Lab Status: Final result Specimen: Sputum Induced Updated: 08/17/22 1015 Lower Respiratory Culture Rare normal upper respiratory wiley Gram Stain -- Many Neutrophils Few squamous epithelial cells Rare mixed bacterial morphotypes suggestive of normal upper respiratory wiley Blood culture [[id number]] Collected: 08/15/22 0110 Lab Status: Final result Specimen: Blood Updated: 08/20/22 0701 Blood Culture No growth at 5 days. MRSA PCR Screen ([facility]/CGP/APD/NLH) [[id number]] Collected: 08/15/22 0050 Lab Status: Final result Specimen: Nasopharyngeal Swab Updated: 08/17/22 1419 MRSA Result Negative MRSA Interp -- Methicillin-resistant Staphylococcus aureus (MRSA) is NOT DETECTED The MRSA target DNA sequences (mec and SCC) were not detected within the acceptable ranges using the Xpert MRSA NxG on the GeneXpert Dx System ([employer]). This suggests the absence of MRSA in the patient specimen submitted for testing. This test is cleared by the U.S. Food and Drug Administration for clinical use and its performance characteristics have been verified by the [facility] at [facility]. This result does not rule out the presence of any other organisms. Rare false negative results may occur if MRSA is present at low concentrations with much higher concentrations of other organisms including MRSE or S. aureus with an empty SCC cassette. Comment: [VERIFIED DATE]08.17.22 Verified By:Shannon Smiley (Electronic Signature) Blood culture [[id number]] Collected: 08/14/22 0655 Lab Status: Final result Specimen: Blood Updated: [...] who have questions please contact the health coronary care unit nurse that requested your imaging [...] who have questions please contact the health coronary care unit nurse that requested your imaging [...] who have questions please contact the health coronary care unit nurse that requested your imaging [...] who have questions please contact the health coronary care unit nurse that requested your imaging [...] who have questions please contact the health coronary care unit nurse that requested your imaging first. Head wo Contrast (Generic) (Exam End: 08/16/2022 10:44 PM) Impression No acute intracranial abnormality and no change from prior Thank you for letting us participate in the care of this patient. If you are a health care provider and have any questions regarding this report, please contact the number below. For patients who have questions please contact the health coronary care unit nurse that requested your imaging first. Electronically signed by: Moustapha Correa MD, [facility] ([phone]), at 08/16/2022 11:19 PM XR Abdomen 1 [...] who have questions please contact the health coronary care unit nurse that requested your imaging first. Head wo Contrast (Generic) (Exam End: 08/18/2022 3:14 PM) Impression No acute intracranial process. Thank you for letting us participate in the care of this patient. If you are a health care provider and have any questions regarding this report, please contact the number below. For patients who have questions please contact the health coronary care unit nurse that requested your imaging first. Chest One View (Exam End: 08/19/2022 12:30 [...] who have questions please contact the health coronary care unit nurse that requested your imaging first. Brain wo Contrast (Exam End: 08/19/2022 10:15 PM) Impression No acute infarction, mass or mass effect. Thank you for letting us participate in the care of this patient. If you are a health care provider and have any questions regarding this report, please contact the number below. For patients who have questions please contact the health coronary care unit nurse that requested your imaging first. Chest for [...] who have questions please contact the health coronary care unit nurse that requested your imaging first. Hip w Contrast Left (Exam End: 08/20/2022 [...] who have questions please contact the health coronary care unit nurse that requested your imaging first. Chest w Contrast (Exam End: 08/20/2022 11:04 [...] who have questions please contact the health coronary care unit nurse that requested your imaging first. Hip 2-3 Views Left (Exam End: 08/22/2022 12:19 AM) Impression No radiographic evidence of infection. Thank you for letting us participate in the care of this patient. If you are a health care provider and have any questions regarding this report, please contact the number below. For patients who have questions please contact the health coronary care unit nurse that requested your imaging first. Electronically signed by: Viktor Cervantes MD, [facility] ([phone]), at 08/22/2022 12:43 PM XR Pelvis (Generic) (Exam End: 08/22/2022 12:19 AM) Impression No radiographic evidence of infection status post left hip ORIF. Thank you for letting us participate in the care of this patient. If you are a health care provider and have any questions regarding this report, please contact the number below. For patients who have questions please contact the health coronary care unit nurse that requested your imaging first. Electronically signed by: Richard Billings MD, [facility] ([phone]), at 08/22/2022 10:[address] Angiogram Coronary [...] who have questions please contact the health coronary care unit nurse that requested your imaging first. Chest wo Contrast (Generic) (Exam End: 08/27/2022 8:58 AM) Impression Stable findings of multifocal pneumonia. No interval abnormality. Thank you for letting us participate in the care of this patient. If you are a health care provider and have any questions regarding this report, please contact the number below. For patients who have questions please contact the health coronary care unit nurse that requested your imaging first. Fluoro Barium [...] who have questions please contact the health coronary care unit nurse that requested your imaging first. Medications: Scheduled: ??? insulin glargine (Lantus;Semglee) (100 [...] anemia,??GERD??c/b??esophagitis &??Farrell's esophagus, who was admitted to [facility] on 08/14/2022 (now on Hospital Day #20) [...] for a percutaneous feeding tube, discussed with INSTANT POWDER SUPERVISOR and plan for MBS tomorrow, will remove dobhoff prior to minimize other factors worsening dysphagia. Today's plan: - Discuss wellbutrin dose with Yg - Consider dose of IV iron for additional supplementation to low stores - Ongoing therapy with PT, OT, and INSTANT POWDER SUPERVISOR - Venofer x 1 to supplement oral iron for iron deficiency anemia milvia Neuro: # Bipolar Disorder - Depakote 300 mg oral liquid per Dobhoff tube q6hr. - Continue Seroquel 100mg nightly - Will check VPA trough level 08/29. - level 25mg/L 08/29 - INSTANT POWDER SUPERVISOR to evaluate, Recommend NPO at present [...] Medicine PGY1 Medicine Team: Jose Juan, Pager #[phone] Date: 09/03/2022 Associated attestation - Tenisha Sandy [...] of two midnights or is on the [facility] inpatient only procedure list (status C) due to: acute metabolic encephalopathy,management of nstemi/stress cardiomyopathy, s/p treatment of sepsis. Also management of IV fluids as patient is not able to tolerate any PO intake. Awaiting MBS. * Feroz Portillo, DANCING MASTER - 09/02/2022 3:10 PM EDT Physical Therapy [...] deficiency anemia,??GERD??c/b??esophagitis &??Farrell's esophagus??presenting in transfer from [facility], suspected to be in cardiogenic shock [...] TE-F x 3 FEROZ PORTILLO PTA Pager: [phone] Physical Therapy Inpatient Rehabilitation Department * Tanya Figueroa, INSTANT POWDER SUPERVISOR - 09/02/2022 2:09 PM EDT Speech Therapy Note Patient Profile:??Ishan Irving is a 62 year old female with a medical history notable for??recent L femoral neck fracture,??bipolar disorder, resolving medication-induced Parkinsonism, insulin-dependent diabetes mellitus,??hx of alcohol use disorder (reported to be in remission for 1.5 years)c/b chronic pancreatitis, iron deficiency anemia,??GERD??c/b??esophagitis &??Farrell's esophagus??presenting in transfer from [facility]??on 08/14/2022, suspected to be in cardiogenic shock and found to be in mixed shock with concern for stress cardiomyopathy.??INSTANT POWDER SUPERVISOR following for swallow, cognitive tx. MBS completed 08/31/22 noting moderate-severe oropharyngeal dysphagia. Lines/Drains: DHT(08/17/22), PICC Precautions: Fall risk, Aspiration risk, Delirium and High risk skin breakdown Continuous Interventions: ??? tube feeding diet 110 mL/hr at 09/02/22 1200 Interval History: No significant changes. Per Resident notes, - PT evaluated and recommends swing bed - GI consulted and recommends patient continue working w/INSTANT POWDER SUPERVISOR, can consider PEG if inadequate improvement [...] puzzle, joining dot drawings. ?? Attempts to [place] words using word soto puzzles - denies any assistance form INSTANT POWDER SUPERVISOR during this task. Searches 9 words [...] nutrition/hydration to provide nutrition during rehab course. INSTANT POWDER SUPERVISOR will f/u for ongoing swallow and cognitive intervention. ?? Barium swallow (esophagram) will be helpful at later date (due to hx of Farrell's esophagus/GERD), however Pt is at high potential for aspiration during study d/t positioning requirements for this test. Likely will need a repeat MBS prior to ordering of barium swallow. ?? Pt would benefit from skilled INSTANT POWDER SUPERVISOR services to maximize swallow function and [...] in ongoing cognitive-linguistic evaluation. Plan: Therapy Frequency (INSTANT POWDER SUPERVISOR Eval): 2-4 times/wk Pt./family are in agreement with treatment plan. Total Minutes (Speech Language Pathology): 24 Thank you for this consult with this patient. Please feel free to page me with any questions or concerns. Tanya Figueroa, , INSTANT POWDER SUPERVISOR-CF Pager #[phone] Speech Language Pathology Inpatient Rehabilitation Medicine * Ghulam Torres MD - 09/02/2022 12:10 PM EDT Palliative super quick note Ran to catch antonio at bedside with Ishan. Introduced myself and palliative. Family welcoming to the support and visit. Antonio has to get home to [facility] to take care of their house, [...] patient and to make a call to [place] [employer] to submit claim for health related reasons. Patient gave verbal permission for me to speak with [employer] and we proceeded to walk through the process together. Patients will provide this insurance underwriter with documentation for the physician to fill [...] Tenisha Sandy MD PCP: Chris Stanley APRN ([phone]) No chief complaint on file. ID: Ishan Irving is a 62 y.o. 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.5 years) c/b chronic pancreatitis, iron deficiency anemia, ??GERD??c/b??esophagitis &??Farrell's esophagus, who was admitted to [facility] on 08/14/2022 (now on Hospital Day #19), and transferred to Hospital Medicine team from Cardiology on 08/30 for mixed shock with concern for stress cardiomyopathy (Takotsubo Cardiomyopathy). 24 HOUR EVENTS & SUBJECTIVE: Yesterday: - Psychiatry consult, recommend starting Wellbutrin for presumed depression versus hypoactive delirium - PT evaluated and recommends swing bed - GI consulted and recommends patient continue working w/INSTANT POWDER SUPERVISOR, can consider PEG if inadequate improvement [...] Gas): No results found for: PHART, PO2ART, IJT9JAK, YQW6ZZO VBG (Venous Blood Gas): No results for input(s): PHVEN, MER1AOI, PO2VEN, LNE7WAC, BEVEN, MED7SGO in the last 72 hours. EKG: Lab [...] Date/Time Lower Respiratory Culture Bronchial Alveolar Lavage [[id number]] Collected: 08/21/221649 Lab Status: Final result Specimen: Bronchial Alveolar Lavage Updated: 08/23/22 0741 Lower Respiratory Culture Rare mixed bacterial morphotypes suggestive of normal upper respiratory wiley Gram Stain -- Few Neutrophils seen No squamous epithelial cells seen No microorganisms seen. Fungus Culture & Calc Stain Bronchial Alveolar Lavage [[id number]] (Abnormal) Collected: 08/21/221649 Lab Status: Preliminary result Specimen: Bronchial Alveolar Lavage Updated: 08/24/22 145 AFB culture Bronchial Alveolar Lavage [[id number]] Collected: 08/21/221649 Lab Status: Preliminary result Specimen: Bronchial Alveolar Lavage Updated: 08/24/222218 Acid Fast Bacilli Culture -- No Acid Fast Bacilli isolated to date If active tuberculosis is suspected, the patient should be on AIRBORNE PRECAUTIONS. Call Infection Prevention for assistance if needed. Acid Fast Stain No Acid Fast Bacilli seen Fungus culture [[id number]] (Abnormal) Collected: 08/21/221649 Lab Status: Preliminary result Specimen: Bronchial Alveolar Lavage Updated: 08/24/221451 Fungus Culture Rare Jacky albicans Calcofluor White Stain [[id number]] Collected: 08/21/221649 Lab Status: Final result Specimen: Bronchial Alveolar Lavage Updated: 08/21/22 2016 Calcofluor Stain Calcofluor White Preparation: Negative Lower Respiratory Culture Bronchial Alveolar Lavage [[id number]] Collected: 08/21/221644 Lab Status: Final result Specimen: Bronchial Alveolar Lavage Updated: 08/23/22740 Lower Respiratory Culture Rare mixed bacterial morphotypes suggestive of normal upper respiratory wiley Gram Stain -- Moderate Neutrophils seen No squamous epithelial cells seen No microorganisms seen. Fungus Culture & Calc Stain Bronchial Alveolar Lavage [[id number]] (Abnormal) Collected: 08/21/221644 Lab Status: Preliminary result Specimen: Bronchial Alveolar Lavage Updated: 08/24/22 145 AFB culture Bronchial Alveolar Lavage [[id number]] Collected: 08/21/221644 Lab Status: Preliminary result Specimen: Bronchial Alveolar Lavage Updated: 08/24/22 2221 Acid Fast Bacilli Culture -- No Acid Fast Bacilli isolated to date If active tuberculosis is suspected, the patient should be on AIRBORNE PRECAUTIONS. Call Infection Prevention for assistance if needed. Acid Fast Stain No Acid Fast Bacilli seen Fungus culture [[id number]] (Abnormal) Collected: 08/21/22 1645 Lab Status: Preliminary result Specimen: Bronchial Alveolar Lavage Updated: 08/24/22 1453 Fungus Culture Rare Jacky albicans Calcofluor White Stain [[id number]] Collected: 08/21/22 1645 Lab Status: Final result Specimen: Bronchial Alveolar Lavage Updated: 08/21/22 2017 Calcofluor Stain Calcofluor White Preparation: Negative Blood culture [[id number]] Collected: 08/19/22 1720 Lab Status: Final result Specimen: Blood Updated: 08/24/22 2301 Blood Culture No growth at 5 days. Lower Respiratory Culture Sputum Induced [[id number]] Collected: 08/19/22 1451 Lab Status: Final result Specimen: Sputum Induced Updated: 08/21/22 0948 Lower Respiratory Culture Rare mixed bacterial morphotypes suggestive of normal upper respiratory wiley Gram Stain -- Many Neutrophils seen Few squamous epithelial cells seen No microorganisms seen. Blood culture [[id number]] Collected: 08/19/22 1330 Lab Status: Final result Specimen: Blood Updated: 08/24/22 1501 Blood Culture No growth at 5 days. Legionella Urinary Antigen [[id number]] Collected: 08/18/22 1013 Lab Status: Final result [...] Catheter Urine; Other; sepsis, bacteria on UA [[id number]] Collected: 08/15/22 1225 Lab Status: Final result Specimen: Indwelling Catheter Urine Updated: 08/16/22 0804 Urine Culture 1,000-9,000 cfu/ml Insignificant growth COVID-19 PCR [[id number]] Collected: 08/15/22 1150 Lab Status: Final result [...] using the [employer] COVID-19 Direct Assay by [employer] as authorized by the FDA issued Emergency [...] Department of Pathology and Laboratory Medicine at [facility], certified under the Clinical Laboratory Improvement Amendments [...] fact sheets at the following FDA website: https://www.fda.gov/medical-devices/jycjjjxltbt-zvyefnh-2254-dvchi-93-szhptmcvc- rcj-rwcnwfkiiynwjj-mzxltkf-devices/hvrge-vxrpydgxukd-utmx SARS-CoV-2 Source TRAIN GATE ATTENDANT Swab Lower Respiratory Culture Sputum Induced [[id number]] Collected: 08/15/22 0740 Lab Status: Final result Specimen: Sputum Induced Updated: 08/17/22 1015 Lower Respiratory Culture Rare normal upper respiratory wiley Gram Stain -- Many Neutrophils Few squamous epithelial cells Rare mixed bacterial morphotypes suggestive of normal upper respiratory wiley Blood culture [[id number]] Collected: 08/15/22 0110 Lab Status: Final result Specimen: Blood Updated: 08/20/22 0701 Blood Culture No growth at 5 days. MRSA PCR Screen ([facility]/CGP/APD/NLH) [[id number]] Collected: 08/15/22 0050 Lab Status: Final result Specimen: Nasopharyngeal Swab Updated: 08/17/22 1419 MRSA Result Negative MRSA Interp -- Methicillin-resistant Staphylococcus aureus (MRSA) is NOT DETECTED The MRSA target DNA sequences (mec and SCC) were not detected within the acceptable ranges using the Xpert MRSA NxG on the GeneXpert Dx System ([employer]). This suggests the absence of MRSA in the patient specimen submitted for testing. This test is cleared by the U.S. Food and Drug Administration for clinical use and its performance characteristics have been verified by the [facility] at [facility]. This result does not rule out the presence of any other organisms. Rare false negative results may occur if MRSA is present at low concentrations with much higher concentrations of other organisms including MRSE or S. aureus with an empty SCC cassette. Comment: [VERIFIED DATE]08.17.22 Verified By:Shannon Smiley (Electronic Signature) Blood culture [[id number]] Collected: 08/14/22 7801 Lab Status: Final result Specimen: Blood Updated: [...] who have questions please contact the health coronary care unit nurse that requested your imaging [...] who have questions please contact the health coronary care unit nurse that requested your imaging [...] who have questions please contact the health coronary care unit nurse that requested your imaging [...] who have questions please contact the health coronary care unit nurse that requested your imaging [...] who have questions please contact the health coronary care unit nurse that requested your imaging first. Head wo Contrast (Generic) (Exam End: 08/16/2022 10:44 PM) Impression No acute intracranial abnormality and no change from prior Thank you for letting us participate in the care of this patient. If you are a health care provider and have any questions regarding this report, please contact the number below. For patients who have questions please contact the health coronary care unit nurse that requested your imaging first. Electronically signed by: Moustapha Correa MD, [facility] ([phone]), at 08/16/2022 11:19 PM XR Abdomen 1 [...] who have questions please contact the health coronary care unit nurse that requested your imaging first. Head wo Contrast (Generic) (Exam End: 08/18/2022 3:14 PM) Impression No acute intracranial process. Thank you for letting us participate in the care of this patient. If you are a health care provider and have any questions regarding this report, please contact the number below. For patients who have questions please contact the health coronary care unit nurse that requested your imaging first. Chest One View (Exam End: 08/19/2022 12:30 [...] who have questions please contact the health coronary care unit nurse that requested your imaging first. Brain wo Contrast (Exam End: 08/19/2022 10:15 PM) Impression No acute infarction, mass or mass effect. Thank you for letting us participate in the care of this patient. If you are a health care provider and have any questions regarding this report, please contact the number below. For patients who have questions please contact the health coronary care unit nurse that requested your imaging first. Chest for [...] who have questions please contact the health coronary care unit nurse that requested your imaging first. Hip w Contrast Left (Exam End: 08/20/2022 [...] who have questions please contact the health coronary care unit nurse that requested your imaging first. Chest w Contrast (Exam End: 08/20/2022 11:04 [...] who have questions please contact the health coronary care unit nurse that requested your imaging first. Hip 2-3 Views Left (Exam End: 08/22/2022 12:19 AM) Impression No radiographic evidence of infection. Thank you for letting us participate in the care of this patient. If you are a health care provider and have any questions regarding this report, please contact the number below. For patients who have questions please contact the health coronary care unit nurse that requested your imaging first. Electronically signed by: Viktor Cervantes MD, [facility] ([phone]), at 08/22/2022 12:43 PM XR Pelvis (Generic) (Exam End: 08/22/2022 12:19 AM) Impression No radiographic evidence of infection status post left hip ORIF. Thank you for letting us participate in the care of this patient. If you are a health care provider and have any questions regarding this report, please contact the number below. For patients who have questions please contact the health coronary care unit nurse that requested your imaging first. Electronically signed by: Richard Billings MD, [facility] ([phone]), at 08/22/2022 10:[address] Angiogram Coronary [...] who have questions please contact the health coronary care unit nurse that requested your imaging first. Chest wo Contrast (Generic) (Exam End: 08/27/2022 8:58 AM) Impression Stable findings of multifocal pneumonia. No interval abnormality. Thank you for letting us participate in the care of this patient. If you are a health care provider and have any questions regarding this report, please contact the number below. For patients who have questions please contact the health coronary care unit nurse that requested your imaging first. Fluoro Barium [...] who have questions please contact the health coronary care unit nurse that requested your imaging first. Medications: Scheduled: ??? insulin glargine (Lantus;Semglee) (100 [...] anemia,??GERD??c/b??esophagitis &??Farrell's esophagus, who was admitted to [facility] on 08/14/2022 (now on Hospital Day #19) [...] with Dr. Marquis in June. Anticipate further INSTANT POWDER SUPERVISOR intervention with hope that patient is able to discharge with PO nutrition, percutaneous G-tube remains a possibility. Patient's profound psychomotor slowing raises some concern for catatonia. May consider trial of benzodiazepines if response is not seen to wellbutrin. Today's plan: - Start wellbutrin today - Ongoing therapy with PT, OT, and INSTANT POWDER SUPERVISOR - Replete mag w/2gm for goal >1 - reticulocyte count (further interrogation of microcytic anemia) Neuro: # Bipolar Disorder - Depakote 300 mg oral liquid per Dobhoff tube q6hr. - Continue Seroquel 100mg nightly - Will check VPA trough level 08/29. - level 25mg/L 08/29 - INSTANT POWDER SUPERVISOR to evaluate, Recommend NPO at present [...] Medicine PGY1 Medicine Team: Jose Juan, Pager #[phone] Date: 09/02/2022 Associated attestation - Tenisha Sandy [...] of two midnights or is on the [facility] inpatient only procedure list (status C) due to: acute metabolic encephalopathy,management of nstemi/stress cardiomyopathy, s/p treatment of sepsis. Also management of IV fluids as patient is not able to tolerate any PO intake. * Shashi Young - 09/01/2022 5:29 PM EDT Basket Person Encounter Note Patient Name: Ishan Irving : [id number] MR#: [id number] Admit Date: 08/14/2022 11:11 PM Hospital Day [...] Care: Nydia Young 09/01/2022 * Petty Mccullough, INSTANT POWDER SUPERVISOR - 09/01/2022 1:56 PM EDT Speech Therapy Note Patient Profile:??Ishan Irving is a 62 year old female with a medical history notable for??recent L femoral neck fracture,??bipolar disorder, resolving medication-induced Parkinsonism, insulin-dependent diabetes mellitus,??hx of alcohol use disorder (reported to be in remission for 1.5 years)c/b chronic pancreatitis, iron deficiency anemia,??GERD??c/b??esophagitis &??Farrell's esophagus??presenting in transfer from [facility]on 08/14/2022, suspected to be in cardiogenic shock and found to be in mixed shock with concern for stress cardiomyopathy.??INSTANT POWDER SUPERVISOR following for swallow, cognitive tx. MBS [...] nutrition/hydration to provide nutrition during rehab course. INSTANT POWDER SUPERVISOR will f/u for ongoing swallow and cognitive intervention. ?? Barium swallow (esophagram) will be helpful at later date (due to hx of Farrell's esophagus/GERD), however Pt is at high potential for aspiration during study d/t positioning requirements for this test. Likely will need a repeat MBS prior to ordering of barium swallow. ?? Pt would benefit from skilled INSTANT POWDER SUPERVISOR services to maximize swallow function and [...] in ongoing cognitive-linguistic evaluation. Plan: Therapy Frequency (INSTANT POWDER SUPERVISOR Eval): 2-4 times/wk Pt./family are in agreement with treatment plan. Total Minutes (Speech Language Pathology): 26 Petty Mccullough M.S., [facility]-INSTANT POWDER SUPERVISOR Inpatient Speech-Pathology Pager: [phone] * Alicia Cook, OT - 09/01/2022 1:38 [...] deficiency anemia,??GERD??c/b??esophagitis &??Farrell's esophagus??presenting in transfer from [facility], suspected to be in cardiogenic shock [...] determined Anticipated Discharge Disposition: acute rehabilitation facility, penitentiary facility Daily schedule / Staff Recommendations: ? [...] Minutes, Occupational Therapy: 38 (2 TA) Pager: [phone] Alicia Cook, OT 09/01/2022 Occupational Therapy Rehabilitation [...] deficiency anemia,??GERD??c/b??esophagitis &??Farrell's esophagus??presenting in transfer from [facility], suspected to be in cardiogenic shock [...] (seeb with OT) GENE YOUNG, PT Pager: [phone] Physical Therapy Inpatient Rehabilitation Department * Elsie Erickson, NUT SIFTER - 09/01/2022 7:30 AM EDT Follow Up [...] Levels Recent Labs 09/01/22 0329 08/31/22 2346 08/31/22 2012 08/31/22 1632 08/31/22 1142 08/31/22 0736 08/31/22 0408 [...] deficiency anemia,??GERD??c/b??esophagitis &??Farrell's esophagus??presenting in transfer from [facility], suspected to be in cardiogenic shock [...] goal of 98mls/hr Monitoring:??Q4 Elsie Erickson APRN [facility] Endocrinology Diabetes Management Pager [phone] * Irwin Jones MD - 09/01/2022 7:19 AM EDT Images from the original note were not included. Inpatient Hospital Medicine Progress Note 09/01/2022 Patient Name: ISHAN IRVING Date of : 1960 Age: 62 y.o. Hospital Admit Date: 08/14/2022 Hospital Day: 18 Inpatient Attending: Tenisha Sandy MD PCP: Chris Stanley APRN ([phone]) No chief complaint on file. ID: Ishan Irving is a 62 y.o. 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.5 years) c/b chronic pancreatitis, iron deficiency anemia, ??GERD??c/b??esophagitis &??Farrell's esophagus, who was admitted to [facility] on 08/14/2022 (now on Hospital Day #18), and transferred to Hospital Medicine team from Cardiology on 08/30 for mixed shock with concern for stress cardiomyopathy (Takotsubo Cardiomyopathy). 24 HOUR EVENTS & SUBJECTIVE: Yesterday: - MBS performed, INSTANT POWDER SUPERVISOR recommend NPO with ice chips for [...] Gas): No results found for: PHART, PO2ART, MYM4YUT, PXU1EQH VBG (Venous Blood Gas): No results for input(s): PHVEN, PSD5JZW, PO2VEN, SHL7MVE, BEVEN, QWF1CZM in the last 72 hours. EKG: Lab [...] Date/Time Lower Respiratory Culture Bronchial Alveolar Lavage [[id number]] Collected: 08/21/221649 Lab Status: Final result Specimen: Bronchial Alveolar Lavage Updated: 08/23/22 0741 Lower Respiratory Culture Rare mixed bacterial morphotypes suggestive of normal upper respiratory wiley Gram Stain -- Few Neutrophils seen No squamous epithelial cells seen No microorganisms seen. Fungus Culture & Calc Stain Bronchial Alveolar Lavage [[id number]] (Abnormal) Collected: 08/21/221649 Lab Status: Preliminary result Specimen: Bronchial Alveolar Lavage Updated: 08/24/22 1452 AFB culture Bronchial Alveolar Lavage [[id number]] Collected: 08/21/221649 Lab Status: Preliminary result Specimen: Bronchial Alveolar Lavage Updated: 08/24/22 2219 Acid Fast Bacilli Culture -- No Acid Fast Bacilli isolated to date If active tuberculosis is suspected, the patient should be on [employer]CA[employer]IONS. Call Infection Prevention for assistance if needed. Acid Fast Stain No Acid Fast Bacilli seen Fungus culture [[id number]] (Abnormal) Collected: 08/21/221649 Lab Status: Preliminary result Specimen: Bronchial Alveolar Lavage Updated: 08/24/22 1452 Fungus Culture Rare Jacky albicans Calcofluor White Stain [[id number]] Collected: 08/21/221649 Lab Status: Final result Specimen: Bronchial Alveolar Lavage Updated: 08/21/222015 Calcofluor Stain Calcofluor White Preparation: Negative Lower Respiratory Culture Bronchial Alveolar Lavage [[id number]] Collected: 08/21/221644 Lab Status: Final result Specimen: Bronchial Alveolar Lavage Updated: 08/23/22 0741 Lower Respiratory Culture Rare mixed bacterial morphotypes suggestive of normal upper respiratory wiley Gram Stain -- Moderate Neutrophils seen No squamous epithelial cells seen No microorganisms seen. Fungus Culture & Calc Stain Bronchial Alveolar Lavage [[id number]] (Abnormal) Collected: 08/21/221644 Lab Status: Preliminary result Specimen: Bronchial Alveolar Lavage Updated: 08/24/22 145 AFB culture Bronchial Alveolar Lavage [[id number]] Collected: 08/21/221644 Lab Status: Preliminary result Specimen: Bronchial Alveolar Lavage Updated: 08/24/22 2221 Acid Fast Bacilli Culture -- No Acid Fast Bacilli isolated to date If active tuberculosis is suspected, the patient should be on [employer] PRECA[employer]IONS. Call Infection Prevention for assistance if needed. Acid Fast Stain No Acid Fast Bacilli seen Fungus culture [[id number]] (Abnormal) Collected: 08/21/221644 Lab Status: Preliminary result Specimen: Bronchial Alveolar Lavage Updated: 08/24/22 145 Fungus Culture Rare Jacky albicans Calcofluor White Stain [[id number]] Collected: 08/21/221644 Lab Status: Final result Specimen: Bronchial Alveolar Lavage Updated: 08/21/222016 Calcofluor Stain Calcofluor White Preparation: Negative Blood culture [[id number]] Collected: 08/19/22 1720 Lab Status: Final result Specimen: Blood Updated: 08/24/22 2301 Blood Culture No growth at 5 days. Lower Respiratory Culture Sputum Induced [[id number]] Collected: 08/19/22 145 Lab Status: Final result Specimen: Sputum Induced Updated: 08/21/22 0948 Lower Respiratory Culture Rare mixed bacterial morphotypes suggestive of normal upper respiratory wiley Gram Stain -- Many Neutrophils seen Few squamous epithelial cells seen No microorganisms seen. Blood culture [[id number]] Collected: 08/19/22 1330 Lab Status: Final result Specimen: Blood Updated: 08/24/22 1501 Blood Culture No growth at 5 days. Legionella Urinary Antigen [[id number]] Collected: 08/18/22 1013 Lab Status: Final result [...] Catheter Urine; Other; sepsis, bacteria on UA [[id number]] Collected: 08/15/22 1225 Lab Status: Final result Specimen: Indwelling Catheter Urine Updated: 08/16/22 0804 Urine Culture 1,000-9,000 cfu/ml Insignificant growth COVID-19 PCR [[id number]] Collected: 08/15/22 1150 Lab Status: Final result [...] using the Simplexa COVID-19 Direct Assay by [employer] as authorized by the FDA issued Emergency [...] Department of Pathology and Laboratory Medicine at [facility], certified under the Clinical Laboratory Improvement Amendments [...] fact sheets at the following FDA website: https://www.fda.gov/medical-devices/lykvbqsjzfy-znvufiz-7016-vsddy-49-vwnmoaati- zrj-rqwdwtvgnffxut-mrymxpx-devices/djctz-sfjlyuyqbme-lpju SARS-CoV-2 Source TRAIN GATE ATTENDANT Swab Lower Respiratory Culture Sputum Induced [[id number]] Collected: 08/15/22 0740 Lab Status: Final result Specimen: Sputum Induced Updated: 08/17/22 1015 Lower Respiratory Culture Rare normal upper respiratory wiley Gram Stain -- Many Neutrophils Few squamous epithelial cells Rare mixed bacterial morphotypes suggestive of normal upper respiratory wiley Blood culture [[id number]] Collected: 08/15/22 0110 Lab Status: Final result Specimen: Blood Updated: 08/20/22 0701 Blood Culture No growth at 5 days. MRSA PCR Screen ([facility]P/APD/[facility]) [[id number]] Collected: 08/15/22 0050 Lab Status: Final result Specimen: Nasopharyngeal Swab Updated: 08/17/22 1419 MRSA Result Negative MRSA Interp -- Methicillin-resistant Staphylococcus aureus (MRSA) is NOT DETECTED The MRSA target DNA sequences (mec and SCC) were not detected within the acceptable ranges using the Xpert MRSA NxG on the [employer] Dx System ([employer]). This suggests the absence of MRSA in the patient specimen submitted for testing. This test is cleared by the U.S. Food and Drug Administration for clinical use and its performance characteristics have been verified by the [facility] at [facility]. This result does not rule out the presence of any other organisms. Rare false negative results may occur if MRSA is present at low concentrations with much higher concentrations of other organisms including MRSE or S. aureus with an empty SCC cassette. Comment: [VERIFIED DATE]08.17.22 Verified By:Shannon Smiley (Electronic Signature) Blood culture [[id number]] Collected: 08/14/22 9563 Lab Status: Final result Specimen: Blood Updated: [...] who have questions please contact the health coronary care unit nurse that requested your imaging [...] who have questions please contact the health coronary care unit nurse that requested your imaging [...] who have questions please contact the health coronary care unit nurse that requested your imaging [...] who have questions please contact the health coronary care unit nurse that requested your imaging [...] who have questions please contact the health coronary care unit nurse that requested your imaging first. Head wo Contrast (Generic) (Exam End: 08/16/2022 10:44 PM) Impression No acute intracranial abnormality and no change from prior Thank you for letting us participate in the care of this patient. If you are a health care provider and have any questions regarding this report, please contact the number below. For patients who have questions please contact the health coronary care unit nurse that requested your imaging first. Electronically signed by: Moustapha Correa MD, [facility] ([phone]), at 08/16/2022 11:19 PM XR Abdomen 1 [...] who have questions please contact the health coronary care unit nurse that requested your imaging first. Head wo Contrast (Generic) (Exam End: 08/18/2022 3:14 PM) Impression No acute intracranial process. Thank you for letting us participate in the care of this patient. If you are a health care provider and have any questions regarding this report, please contact the number below. For patients who have questions please contact the health coronary care unit nurse that requested your imaging first. Chest One View (Exam End: 08/19/2022 12:30 [...] who have questions please contact the health coronary care unit nurse that requested your imaging first. Brain wo Contrast (Exam End: 08/19/2022 10:15 PM) Impression No acute infarction, mass or mass effect. Thank you for letting us participate in the care of this patient. If you are a health care provider and have any questions regarding this report, please contact the number below. For patients who have questions please contact the health coronary care unit nurse that requested your imaging first. Chest for [...] who have questions please contact the health coronary care unit nurse that requested your imaging first. Hip w Contrast Left (Exam End: 08/20/2022 [...] who have questions please contact the health coronary care unit nurse that requested your imaging first. Chest w Contrast (Exam End: 08/20/2022 11:04 [...] who have questions please contact the health coronary care unit nurse that requested your imaging first. Hip 2-3 Views Left (Exam End: 08/22/2022 12:19 AM) Impression No radiographic evidence of infection. Thank you for letting us participate in the care of this patient. If you are a health care provider and have any questions regarding this report, please contact the number below. For patients who have questions please contact the health coronary care unit nurse that requested your imaging first. Electronically signed by: Viktor Cervantes MD, [facility] ([phone]), at 08/22/2022 12:43 PM XR Pelvis (Generic) (Exam End: 08/22/2022 12:19 AM) Impression No radiographic evidence of infection status post left hip ORIF. Thank you for letting us participate in the care of this patient. If you are a health care provider and have any questions regarding this report, please contact the number below. For patients who have questions please contact the health coronary care unit nurse that requested your imaging first. Electronically signed by: Richard Billings MD, [facility] ([phone]), at 08/22/2022 10:[address] Angiogram Coronary [...] who have questions please contact the health coronary care unit nurse that requested your imaging first. Chest wo Contrast (Generic) (Exam End: 08/27/2022 8:58 AM) Impression Stable findings of multifocal pneumonia. No interval abnormality. Thank you for letting us participate in the care of this patient. If you are a health care provider and have any questions regarding this report, please contact the number below. For patients who have questions please contact the health coronary care unit nurse that requested your imaging first. Fluoro Barium [...] who have questions please contact the health coronary care unit nurse that requested your imaging first. Medications: Scheduled: ??? insulin glargine (Lantus;Semglee) (100 [...] anemia,??GERD??c/b??esophagitis &??Farrell's esophagus, who was admitted to [facility] on 08/14/2022 (now on Hospital Day #18) [...] level 08/29. - level 25mg/L 08/29 - INSTANT POWDER SUPERVISOR to evaluate, Recommend NPO at present [...] Medicine PGY1 Medicine Team: Jose Juan, Pager #[phone] Date: 09/01/2022 Associated attestation - Tenisha Sandy [...] of two midnights or is on the [facility] inpatient only procedure list (status C) due [...] well. She is working on some ice chips. Objective Temp: [36.5 ??C (97.7 ??F)-37.2 ??C [...] deficiency anemia,??GERD??c/b??esophagitis &??Farrell's esophagus??presenting in transfer from [facility], suspected to be in cardiogenic shock [...] of 98mls/hr Monitoring: Q4 Elsie Erickson APRN [facility] Endocrinology Diabetes Management Pager [phone] minutes of this 35 minute visit was spent reviewing diabetes and treatment plan, reviewing all glucose and insulin data as well as relevant laboratory results with the patient, and coordination ofcare on the inpatient unit including nursing and primary team. * Petty Mccullough SLP - 08/31/2022 10:16 AM EDT Speech-Language Pathology Modified Barium Swallow Evaluation Patient Profile:??Ishan Irving is a 62 year old female with a medical history notable for??recent L femoral neck fracture,??bipolar disorder, resolving medication-induced Parkinsonism, insulin-dependent diabetes mellitus,??hx of alcohol use disorder (reported to be in remission for 1.5 years)c/b chronic pancreatitis, iron deficiency anemia,??GERD??c/b??esophagitis &??Farrell's esophagus??presenting in transfer from [facility]??on 08/14/2022, suspected to be in cardiogenic shock and found to be in mixed shock with concern for stress cardiomyopathy.??INSTANT POWDER SUPERVISOR service was consulted to assess oropharyngeal [...] cup, by straw with attempted chin tuck. [employer] consistency thickened liquid by spoon x1, by [...] x2 ??? Posterior laryngeal portion of epiglottis: [employer]-thick by spoon ??? Pyriform Sinuses: Thin liquids by cup, [employer]-thick liquids by strawe ??? Airway: Thin liquids [...] the vocal cords, but is not ejected: [employer]-thick liquids 4 = material enters the airway, [...] family and Pt at later date. Assessment: [facility] completed this date revealing: ?? Audible aspiration [...] nutrition/hydration to provide nutrition during rehab course. INSTANT POWDER SUPERVISOR will f/u for ongoing swallow intervention and therapeutic trials. Barium swallow (esophagram) will be helpful at later date, however Pt is at high potential for aspiration during study d/t positioning requirements for barium swallow. Pt would benefit from skilled INSTANT POWDER SUPERVISOR services to maximize swallow function and [...] with any questions or concerns. Petty Mccullough, INSTANT POWDER SUPERVISOR MS, CCC-INSTANT POWDER SUPERVISOR Pager: [phone] Speech-Language Pathology Inpatient Rehabilitation Department * Gene [...] deficiency anemia,??GERD??c/b??esophagitis &??Farrell's esophagus??presenting in transfer from [facility], suspected to be in cardiogenic shock [...] TA x 2 GENE YOUNG, PT Pager: [phone] Physical Therapy Inpatient Rehabilitation Department * Nancy Ernst, HUGH - 08/31/2022 8:21 AM EDT Nutrition Progress Note Ishan Irving is a 62 y.o.??female??with h/o bipolar, DM, EtOH, esophagitis, who presented to [facility] 3 days ago after being found unresponsive at home.?Patient found to have likely pneumonia +/- aspiration, newly reduced EF. Reason for Assessment: Follow-up, Tube Feeding Nutrition Recommendations: Enteral Nutrition: Cyclic Peptamen AF at 110ml/hr for 12hrs from 2023-4988 At goal, this will provide: Peptamen AF Total Volume Per Day: 1320 mL Scoops of Protein: 0 Calories per Day: 1584 Protein per Day: 100 g Free Water mL per Day: 1072 % RDI: 106 % Monitor hydration status on above TFs as they are concentrated. Pt may need additional fluids depending on IVFs, med flushes, p.o. Intake, etc. Diet per INSTANT POWDER SUPERVISOR Monitor weight to trend Monitor BM. [...] encounter: 67.7 kg (149 lb 4.8 oz). [place] Body Weight (IBW) (kg): 45.45 Usual Body [...] 08/25 r/t liquid tylenol, d/c per this insurance underwriter's request as liquid tylenol acts as a [...] up while inpatient Nancy Ernst RD Pager #:[phone] * Irwin Jones MD - 08/31/2022 7:09 AM EDT Images from the original note were not included. Inpatient Hospital Medicine Progress Note 08/31/2022 Patient Name: ISHAN IRVING Date of : 1960 Age: 62 y.o. Hospital Admit Date: 08/14/2022 Hospital Day: 17 Inpatient Attending: Alfonso Navarrete MD PCP: Chris Stanley APRN ([phone]) No chief complaint on file. ID: Ishan Irving is a 62 y.o. 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.5 years) c/b chronic pancreatitis, iron deficiency anemia, ??GERD??c/b??esophagitis &??Farrell's esophagus, who was admitted to [facility] on 08/14/2022 (now on Hospital Day #17), and transferred to Hospital Medicine team from Cardiology on 08/30 for mixed shock with concern for stress cardiomyopathy (Takotsubo Cardiomyopathy). 24 HOUR EVENTS & SUBJECTIVE: Yesterday: - Patient transferred from Cards as cardiomyopathy is now stabilized on goal directed therapy - Patient, per INSTANT POWDER SUPERVISOR eval, is strict NPO given HIGH [...] HA1C 6.2* CRP, Sed Rate Recent Labs 04/14/23 1200 CRP 19.4* SEDRATE >119* Lipids: Lab Results Component Value Date CHLPL 110 08/29/2022 HDL 34 08/29/2022 CHOLHDL 3.2 08/29/2022 TRIG 127 08/29/2022 LDLCHOL 51 08/29/2022 Heme: No results for input(s): LDH, HAPTOGLOBIN, URICACID in the last 168 hours. ABG (Arterial Blood Gas): No results found for: PHART, PO2ART, FSS0RNK, NMK2AML VBG (Venous Blood Gas): No results for input(s): PHVEN, HLV5YTG, PO2VEN, CYY2ZEY, BEVEN, QBJ8BHF in the last 72 hours. EKG: Lab [...] Date/Time Lower Respiratory Culture Bronchial Alveolar Lavage [[id number]] Collected: 08/21/221649 Lab Status: Final result Specimen: Bronchial Alveolar Lavage Updated: 08/23/22 0741 Lower Respiratory Culture Rare mixed bacterial morphotypes suggestive of normal upper respiratory wiley Gram Stain -- Few Neutrophils seen No squamous epithelial cells seen No microorganisms seen. Fungus Culture & Calc Stain Bronchial Alveolar Lavage [[id number]] (Abnormal) Collected: 08/21/221649 Lab Status: Preliminary result Specimen: Bronchial Alveolar Lavage Updated: 08/24/22 1452 AFB culture Bronchial Alveolar Lavage [[id number]] Collected: 08/21/221649 Lab Status: Preliminary result Specimen: Bronchial Alveolar Lavage Updated: 08/24/22 2219 Acid Fast Bacilli Culture -- No Acid Fast Bacilli isolated to date If active tuberculosis is suspected, the patient should be on AIR[employer]ORNE PRECAUTIONS. Call Infection Prevention for assistance if needed. Acid Fast Stain No Acid Fast Bacilli seen Fungus culture [[id number]] (Abnormal) Collected: 08/21/221649 Lab Status: Preliminary result Specimen: Bronchial Alveolar Lavage Updated: 08/24/22 145 Fungus Culture Rare Jacky albicans Calcofluor White Stain [[id number]] Collected: 08/21/221649 Lab Status: Final result Specimen: Bronchial Alveolar Lavage Updated: 08/21/222015 Calcofluor Stain Calcofluor White Preparation: Negative Lower Respiratory Culture Bronchial Alveolar Lavage [[id number]] Collected: 08/21/221644 Lab Status: Final result Specimen: Bronchial Alveolar Lavage Updated: 08/23/22 0741 Lower Respiratory Culture Rare mixed bacterial morphotypes suggestive of normal upper respiratory wiley Gram Stain -- Moderate Neutrophils seen No squamous epithelial cells seen No microorganisms seen. Fungus Culture & Calc Stain Bronchial Alveolar Lavage [[id number]] (Abnormal) Collected: 08/21/221644 Lab Status: Preliminary result Specimen: Bronchial Alveolar Lavage Updated: 08/24/22 1453 AFB culture Bronchial Alveolar Lavage [[id number]] Collected: 08/21/221644 Lab Status: Preliminary result Specimen: Bronchial Alveolar Lavage Updated: 08/24/22 2221 Acid Fast Bacilli Culture -- No Acid Fast Bacilli isolated to date If active tuberculosis is suspected, the patient should be on AIRBORNE PRECAUTIONS. Call Infection Prevention for assistance if needed. Acid Fast Stain No Acid Fast Bacilli seen Fungus culture [[id number]] (Abnormal) Collected: 08/21/221644 Lab Status: Preliminary result Specimen: Bronchial Alveolar Lavage Updated: 08/24/22 1453 Fungus Culture Rare Jacky albicans Calcofluor White Stain [[id number]] Collected: 08/21/22 1645 Lab Status: Final result Specimen: Bronchial Alveolar Lavage Updated: 08/21/22 2017 Calcofluor Stain Calcofluor White Preparation: Negative Blood culture [[id number]] Collected: 08/19/22 1720 Lab Status: Final result Specimen: Blood Updated: 08/24/22 2301 Blood Culture No growth at 5 days. Lower Respiratory Culture Sputum Induced [[id number]] Collected: 08/19/22 1451 Lab Status: Final result Specimen: Sputum Induced Updated: 08/21/22 0948 Lower Respiratory Culture Rare mixed bacterial morphotypes suggestive of normal upper respiratory wiley Gram Stain -- Many Neutrophils seen Few squamous epithelial cells seen No microorganisms seen. Blood culture [[id number]] Collected: 08/19/22 1330 Lab Status: Final result Specimen: Blood Updated: 08/24/22 1501 Blood Culture No growth at 5 days. Legionella Urinary Antigen [[id number]] Collected: 08/18/22 1013 Lab Status: Final result [...] Catheter Urine; Other; sepsis, bacteria on UA [[id number]] Collected: 08/15/22 1225 Lab Status: Final result Specimen: Indwelling Catheter Urine Updated: 08/16/22 0804 Urine Culture 1,000-9,000 cfu/ml Insignificant growth COVID-19 PCR [[id number]] Collected: 08/15/22 1150 Lab Status: Final result [...] using the Simplexa COVID-19 Direct Assay by [employer] as authorized by the FDA issued Emergency [...] Department of Pathology and Laboratory Medicine at [facility], certified under the Clinical Laboratory Improvement Amendments [...] fact sheets at the following FDA website: https://www.fda.gov/medical-devices/kzmojmdavsj-kvnjntv-0489-bhalp-33-xcskhmwqk- ufp-jwxintxynenrum-cypugck-devices/yonsv-quonyslkuqw-tsfm SARS-CoV-2 Source TRAIN GATE ATTENDANT Swab Lower Respiratory Culture Sputum Induced [[id number]] Collected: 08/15/22 0740 Lab Status: Final result Specimen: Sputum Induced Updated: 08/17/22 1015 Lower Respiratory Culture Rare normal upper respiratory wiley Gram Stain -- Many Neutrophils Few squamous epithelial cells Rare mixed bacterial morphotypes suggestive of normal upper respiratory wiley Blood culture [[id number]] Collected: 08/15/22 0110 Lab Status: Final result Specimen: Blood Updated: 08/20/22 0701 Blood Culture No growth at 5 days. MRSA PCR Screen ([facility]/CGP/APD/NLH) [[id number]] Collected: 08/15/22 0050 Lab Status: Final result Specimen: Nasopharyngeal Swab Updated: 08/17/22 1419 MRSA Result Negative MRSA Interp -- Methicillin-resistant Staphylococcus aureus (MRSA) is NOT DETECTED The MRSA target DNA sequences (mec and SCC) were not detected within the acceptable ranges using the Xpert MRSA NxG on the GeneXpert Dx System ([employer]). This suggests the absence of MRSA in the patient specimen submitted for testing. This test is cleared by the U.S. Food and Drug Administration for clinical use and its performance characteristics have been verified by the [facility] at [facility]. This result does not rule out the presence of any other organisms. Rare false negative results may occur if MRSA is present at low concentrations with much higher concentrations of other organisms including MRSE or S. aureus with an empty SCC cassette. Comment: [VERIFIED DATE]08.17.22 Verified By:Shannon Smiley (Electronic Signature) Blood culture [[id number]] Collected: 08/14/22 2355 Lab Status: Final result [...] who have questions please contact the health coronary care unit nurse that requested your imaging [...] who have questions please contact the health coronary care unit nurse that requested your imaging [...] who have questions please contact the health coronary care unit nurse that requested your imaging [...] who have questions please contact the health coronary care unit nurse that requested your imaging [...] who have questions please contact the health coronary care unit nurse that requested your imaging first. Head wo Contrast (Generic) (Exam End: 08/16/2022 10:44 PM) Impression No acute intracranial abnormality and no change from prior Thank you for letting us participate in the care of this patient. If you are a health care provider and have any questions regarding this report, please contact the number below. For patients who have questions please contact the health coronary care unit nurse that requested your imaging first. Electronically signed by: Moustapha Correa MD, [facility] ([phone]), at 08/16/2022 11:19 PM XR Abdomen 1 [...] who have questions please contact the health coronary care unit nurse that requested your imaging first. Head wo Contrast (Generic) (Exam End: 08/18/2022 3:14 PM) Impression No acute intracranial process. Thank you for letting us participate in the care of this patient. If you are a health care provider and have any questions regarding this report, please contact the number below. For patients who have questions please contact the health coronary care unit nurse that requested your imaging first. Chest One View (Exam End: 08/19/2022 12:30 [...] who have questions please contact the health coronary care unit nurse that requested your imaging first. Brain wo Contrast (Exam End: 08/19/2022 10:15 PM) Impression No acute infarction, mass or mass effect. Thank you for letting us participate in the care of this patient. If you are a health care provider and have any questions regarding this report, please contact the number below. For patients who have questions please contact the health coronary care unit nurse that requested your imaging first. Chest for [...] who have questions please contact the health coronary care unit nurse that requested your imaging first. Hip w Contrast Left (Exam End: 08/20/2022 [...] who have questions please contact the health coronary care unit nurse that requested your imaging first. Chest w Contrast (Exam End: 08/20/2022 11:04 [...] who have questions please contact the health coronary care unit nurse that requested your imaging first. Hip 2-3 Views Left (Exam End: 08/22/2022 12:19 AM) Impression No radiographic evidence of infection. Thank you for letting us participate in the care of this patient. If you are a health care provider and have any questions regarding this report, please contact the number below. For patients who have questions please contact the health coronary care unit nurse that requested your imaging first. Electronically signed by: Viktor Cervantes MD, [facility] ([phone]), at 08/22/2022 12:43 PM XR Pelvis (Generic) (Exam End: 08/22/2022 12:19 AM) Impression No radiographic evidence of infection status post left hip ORIF. Thank you for letting us participate in the care of this patient. If you are a health care provider and have any questions regarding this report, please contact the number below. For patients who have questions please contact the health coronary care unit nurse that requested your imaging first. Electronically signed by: Richard Billings MD, [facility] ([phone]), at 08/22/2022 10:[address] Angiogram Coronary [...] who have questions please contact the health coronary care unit nurse that requested your imaging first. Chest wo Contrast (Generic) (Exam End: 08/27/2022 8:58 AM) Impression Stable findings of multifocal pneumonia. No interval abnormality. Thank you for letting us participate in the care of this patient. If you are a health care provider and have any questions regarding this report, please contact the number below. For patients who have questions please contact the health coronary care unit nurse that requested your imaging first. Medications: Scheduled: ??? metoproloL tartrate 12.5 mg [...] ??? tube feeding diet 1,176 mL (08/31/22 5032) PRN: ondansetron, iohexoL, melatonin, polyethylene glycoL, senna, [...] anemia,??GERD??c/b??esophagitis &??Farrell's esophagus, who was admitted to [facility] on 08/14/2022 (now on Hospital Day #17) [...] level 08/29. - level 25mg/L 08/29 - INSTANT POWDER SUPERVISOR to evaluate, Recommend strict NPO - [...] Medicine PGY1 Medicine Team: Jose Juan, Pager #[phone] Date: 08/31/2022 Associated attestation - Tenisha Sandy [...] of two midnights or is on the [facility] inpatient only procedure list (status C) due [...] & Farrell's esophagus presenting in transfer from [facility], suspected to be in cardiogenic shock and found to be in mixed shock with concern for stress cardiomyopathy. 24 Hour Events/Subjective: Overnight: - NAEON. This AM: - Appears mildly less responsive this morning than prior; still opening eyes to voice, but does notengage further. Vasoactive & Sedating Medications: Infusions: Continuous Infusions: ??? tube feeding diet 1,176 mL (08/29/22 06) Objective: Vitals Last value Range last 24 [...] Will check VPA trough level 08/29. - INSTANT POWDER SUPERVISOR to evaluate. - Reach out to [...] - Inpatient Alternative Medical Decision Maker: zac Rodríguez MD [facility], PGY-1 Cardiology [facility] #[id number] Associated [...] 0. GDMT for HFrEF. Appreciate psychiatry and INSTANT POWDER SUPERVISOR consultation. Rest per Dr. Avila. Roland Pruett MD, MPH, RPVI, FACC, FAHA, FASE, [facility] Pager [phone] Cardiovascular Director Regulatory AgencyPigs [place]et [place] [address] * Petty Mccullough, INSTANT POWDER SUPERVISOR - 08/28/2022 3:49 PM EDT Speech Therapy Note Patient Profile: Ishan Irving is a 62 year old female with a medical history notable for??recent L femoral neck fracture,??bipolar disorder, resolving medication-induced Parkinsonism, insulin-dependent diabetes mellitus,??hx of alcohol use disorder (reported to be in remission for 1.5 years) c/b chronic pancreatitis, iron deficiency anemia,??GERD??c/b??esophagitis &??Farrell's esophagus??presenting in transfer from [facility] on 08/14/2022, suspected to be in cardiogenic shock and found to bein mixed shock with concern for stress cardiomyopathy. INSTANT POWDER SUPERVISOR service was consulted to assess oropharyngeal [...] non-productive. Bolus Presentation(s) ?? Ice chips ?? [employer] thickened liquid via cup ?? Puree Oral [...] [x] [] Orientation Log Score: 21 Education: INSTANT POWDER SUPERVISOR educated re: plan of care, recs for MBS at later date. Pt in agreement, stating she would like DHT out but understands she is not ready to eat/drink yet. Assessment: Pt was seen today for a follow-up INSTANT POWDER SUPERVISOR visit. ??? Oropharyngeal swallow function characterized [...] from staff as needed Plan: Therapy Frequency (INSTANT POWDER SUPERVISOR Eval): 2-4 times/wk Pt./family are in agreement with treatment plan. Total Minutes (Speech Language Pathology): 30 Petty Mccullough M.S., [facility]-INSTANT POWDER SUPERVISOR Inpatient Speech-Pathology Pager: [phone] * Elsie Erickson APRN - 08/28/2022 3:49 [...] deficiency anemia,??GERD??c/b??esophagitis &??Farrell's esophagus??presenting in transfer from [facility], suspected to be in cardiogenic shock [...] of 98mls/hr Monitoring: Q4 Elsie Erickson APRN [facility] Endocrinology Diabetes Management Pager [phone] 40 minutes of this 50 minute visit was spent evaluating diabetes and treatment plan, reviewing all glucose and insulin data as well as relevant laboratory results , and coordination of care on the inpatient unit including nursing and primary team. * Shashi Young - 08/28/2022 2:46 PM EDT Basket Person Encounter Note Patient Name: Ishan Irving : [id number] MR#: [id number] Admit Date: 08/14/2022 11:11 PM Hospital Day [...] request. Time in Direct Care: 20 Shashi Socorro Young 08/28/2022 * Shashi Young - 08/28/2022 11:45 AM EDT Basket Person Encounter Note Patient Name: Ishan Irving : [id number] MR#: [id number] Admit Date: 08/14/2022 11:11 PM Hospital Day 14 days Narrative: A response to a referral from Abby via [employer] for Spiritual support to patient and her [...] deficiency anemia,??GERD??c/b??esophagitis &??Farrell's esophagus??presenting in transfer from [facility], suspected to be in cardiogenic shock [...] discharge: to be determined Anticipated Discharge Disposition: penitentiary facility, acute rehabilitation facility Daily schedule / [...] times/wk Total Minutes, Occupational Therapy: 28 (3 [phone]) Pager: [phone] Alicia Cook OT 08/28/2022 Occupational Therapy Rehabilitation [...] deficiency anemia,??GERD??c/b??esophagitis &??Farrell's esophagus??presenting in transfer from [facility], suspected to be in cardiogenic shock [...] Physical Therapy: 25 Billing Code: TAx2 GENE YOUNG PT Pager: [phone] Physical Therapy Inpatient Rehabilitation Department * Avani Ayala, RN - 08/28/2022 10:02 AM EDT Office of Care Management (OCM /[place] (RUPAL)Discharge planning ) Service : S1 Pager #[phone] e-DH reviewed. Report received from [facility] Patient plan of care discussed with Team and Nursing to assessment for continuing care and discharge needs. [facility]: 14 DECISION MAKER: Attempt Cardiopulmonary Resuscitation - Inpatient, <no information> Ongoing Issues: This insurance underwriter had a message to give Antonio a call . He has reqyested that [facility] be the referral of choice . [...] discuss discharge planning needs. ?? provide the [facility], Office of Care Management letter from the [employer] pertaining to rehabreferrals. ?? provide a letter describing our affiliations within the [facility] and educate about their right to choose where referrals are sent. ?? provide the [facility] Star Quality Rating handout. ?? review the different levels of rehab including SNF, swing, and acute. ?? provide a list of facilities within their preferred geographic area. ?? request that they provide at least three choices for referral. They have requested referrals to: [facility] ([facility]) [address] [place] [address] P: [phone] F: [phone] Does patient have COVID vaccine card: No Note routed to a Wooden Furniture Polisher who will communicate referrals to facilities and [...] to facilitate discharge planning. Avani Ayala RN Pager # [phone] * Reynaldo Avila MD - 08/28/2022 7:43 [...] & Farrell's esophagus presenting in transfer from [facility], suspected to be in cardiogenic shock [...] parkinsonism/medication regimen contributing to overall slow recovery. INSTANT POWDER SUPERVISOR consulted, appreciate recs. Neuro: # Bipolar Disorder - Depakote 300 mg oral liquid per Dobhoff tube q6hr. - Continue Seroquel 100mg nightly - Will check VPA trough level 08/29. - INSTANT POWDER SUPERVISOR to evaluate. - Reach out to [...] meeting a minimum of two midnights. Mrs. rIving is a 62 year old woman with history of bipolar disorder, diabetes who presented with cardiogenic shock in the setting of stress cardiomyopathy and chronic aspiration. Ischemic work-upnegative with coronary calcium score of 0. GDMT for HFrEF. Appreciate psychiatry and INSTANT POWDER SUPERVISOR consultation. Roland Pruett MD, MPH, RPVI, FACC, FAHA, FASE, FS Pager [phone] Cardiovascular Director Regulatory AgencyPigs [place] [address] * Cydney Moses RN - 08/28/2022 7:00 AM EDT Pt was able to sleep most of the shift and woke up intermittently for basic need request. Tube feeding restarted per protocol at 45ml/hr. * Neva Zhao MANAGEMENT TECH - 08/27/2022 11:52 AM EDT This MANAGEMENT TECH received a message this morning from Ishan's spouse, Antonio, asking for a gas card. ThisMSW and transportation RS went to talk to Antonio about his request and provide him with informationon Medicaid rides. Antonio said he is familiar with Medicaid rides, but he is not interested in using those services at this time. This MANAGEMENT TECH then explained that the hospital is unable to provide gas cards if Medicaid rides are available. Antonio expressed understanding of this. Antonio then expressed frustration around the lack of support available from the state of [place], sharing that he continues to be unable to find any type of emergency assistance to help with bills and other expenses. Antonio thentalked about his support system, including their two sons that live in [place], as well as his sister and mother in [place]. Antonio said their sons plan to help [...] deficiency anemia,??GERD??c/b??esophagitis &??Farrell's esophagus??presenting in transfer from [facility], suspected to be in cardiogenic shock [...] goals of rx, activity progression Assessment: Ishan Orlando Aristides was seen today [...] TA x 2 GENE YOUNG PT Pager: [phone] Physical Therapy Inpatient Rehabilitation Department * Reynaldo [...] & Farrell's esophagus presenting in transfer from [facility], suspected to be in cardiogenic shock and found to be in mixed shock with concern for stress cardiomyopathy. 24 Hour Events/Subjective: Overnight: - NAEON. Intermittently disoriented, but stable overnight. This AM: - Stable from prior without significant change. Vasoactive & Sedating Medications: Infusions: Continuous Infusions: ??? tube feeding diet 900 mL (08/26/22 3) Objective: Vitals Last value Range last 24 [...] and will check VPA level 08/29. - INSTANT POWDER SUPERVISOR to evaluate, pending recs Pulmonary: # [...] the hospital. Hemodynamics stable. Still NPO per INSTANT POWDER SUPERVISOR with enteral nutrition through DHT. Proceeding [...] of two midnights or is on the [facility] inpatient only procedure list (status C) due to: decompensated congestive heart failure requiring IV medication and fluid monitoring and aspiration pneumonia unable to advance oralintake. Milagros Hernandez MD Cardiovascular Medicine Personal Pager [phone] 08/27/2022 6:22 PM * Rober Mensah MD [...] time. Orthopedics to sign off. Please page [phone] with any questions or concerns. Rober Mensah MD 08/27/22 * Nancy Ernst RD - 08/27/2022 8:16 AM EDT Nutrition Progress Note Ishan Irving is a 62 y.o.??female??with h/o bipolar, DM, EtOH, esophagitis, who presented to [facility] 3 days ago after being found unresponsive at home.?Patient found to have likely pneumonia +/- aspiration, newly reduced EF. Reason for Assessment: Follow-up, Tube Feeding Nutrition Recommendations: Enteral Nutrition: Cyclic Peptamen AF at 98ml/hr for 12hrs from [id number] At goal, this will provide: Peptamen AF [...] encounter: 69.6 kg (153 lb 6.4 oz). [place] Body Weight (IBW) (kg): 45.45 Usual Body [...] 08/25 r/t liquid tylenol, d/c per this insurance underwriter's request as liquid tylenol acts as a [...] up while inpatient Nancy Ernst RD Pager #:[phone] * Cydney Moses RN - 08/27/2022 7:44 [...] PM EDT Patient arrived via bed from [facility] this afternoon in stable condition. VSS. Denies any chest pain/SOB. Feeding tube running at goal (45mL/hr). Patient A+Ox2-3. C/O of mild lower back pain. External female catheter in place d/t frequency and incontinence. Safety maintained, bed alarm on. Call light within reach. Pt oriented to room. * Neva Zhao MSW - 08/26/2022 2:30 PM EDT MANAGEMENT TECH received message stating that Ishan's , Antonio, is requesting social work support. Antonio shared that they have been denied support through economic services due to his disability income. Antonio also shared that he reached out to unemployment and his Choices for Care caseworker, but he has not found anyone able to help with their immediate financial needs (rent, utilities). Antonio became emotional during conversation, sharing that he is concerned they will lose their home if theycan't pay their bills. MANAGEMENT TECH provided support and promised to follow up with resources this afternoon. UPDATE: This MANAGEMENT TECH called [facility] to provide information for [facility], [facility] [place] [facility] A[facility], [facility], and the local food pantry. Antonio appreciativeof support and resources. * Afia Bergeron, INSTANT POWDER SUPERVISOR - 08/26/2022 11:53 AM EDT Speech Therapy Note Patient Profile: Ishan Irving is a 62 year old female with a medical history notable for??recent L femoral neck fracture,??bipolar disorder, resolving medication-induced Parkinsonism, insulin-dependent diabetes mellitus,??hx of alcohol use disorder (reported to be in remission for 1.5 years) c/b chronic pancreatitis, iron deficiency anemia,??GERD??c/b??esophagitis &??Farrell's esophagus??presenting in transfer from [facility] on 08/14/2022, suspected to be in cardiogenic shock and found to bein mixed shock with concern for stress cardiomyopathy. INSTANT POWDER SUPERVISOR service was consulted to assess oropharyngeal [...] chips ?? Thin liquid via spoon ?? [employer] thickened liquid via spoon ?? via cup [...] reports pt was being followed closely by School Fundraising Director and was supposed to go for a barium swallow sometime soon so they could look at her esophagus) Education: Pt and pt's , Antonio, verbally educated by this clinician to INSTANT POWDER SUPERVISOR role, results ofthis bedside reassessment, pt current swallow status/function, aspiration risks, safe swallow technique (optimizing upright positioning) and impact of baseline esophageal history on function. Discussed plan as outlined below. Antonio verbalizes understanding and agreement; pt reports I guess so when asked if she understands. Assessment: Pt was seen today for a follow-up INSTANT POWDER SUPERVISOR visit/reassessment. Pt sitting upright in chair [...] have a barium swallow at baseline (via turner machine operator) at some point to further assess [...] Continue alternative access (currently with [facility]) for primary nutrition/meds Consider GI input given baseline esophageal history? Aspiration Precautions: Excellent oral care Speech Therapy Goals: Pt will tolerate least restrictive diet without evidence of dysphagia / aspiration. Pt / caregiver will be independent with aspiration precautions, diet modifications, and safe swallowing strategies. Pt will maintain hydration / nutrition with optimal safety and efficiency. Plan: Therapy Frequency (INSTANT POWDER SUPERVISOR Eval): 2-4 times/wk Patient / family are in agreement with treatment plan. Total Minutes (Speech Language Pathology): 25 Thank you for this consult with this patient. Please feel free to page me with any questions or concerns. Afia Bergeron M.S., [facility]-INSTANT POWDER SUPERVISOR Pager: [phone] Speech-Language Pathology Inpatient Rehabilitation Medicine * Moustapha [...] & Farrell's esophagus presenting in transfer from [facility], suspected to be in cardiogenic shock [...] this AM. She has been working with INSTANT POWDER SUPERVISOR/PT/OT and would benefit from continuation. Plan to obtain CT chest and CTA Coronaries today/tomorrow. Neuro: # Bipolar Disorder - Depakote 190 mg oral liquid per Dobhoff - Continue Seroquel 25mg nightly - Plan to increase to full home regimen (250mg QPM / 1g Q3PM) by 08/24. - INSTANT POWDER SUPERVISOR to evaluate, pending recs Pulmonary: # [...] of two midnights or is on the [facility] inpatient only procedure list (status C) due to: acute respiratory compromise and/or hypoxia requiring assessment every 4 hours and the ability to respond immediately to the patient's needs and acute cardiomyopathy requiring further evaluation and therapy and acute toxic metabolic encephalopathy. Milagros Hernandez MD Cardiovascular Medicine Personal Pager [phone] 08/26/2022 5:28 PM * Gene Young, PT [...] deficiency anemia,??GERD??c/b??esophagitis &??Farrell's esophagus??presenting in transfer from [facility], suspected to be in cardiogenic shock [...] plan as stated. Time IN / OUT: 5828-3337 Total Minutes, Physical Therapy: 20 Billing Code: TA x 1 GENE YOUNG, PT Pager: [phone] Physical Therapy Inpatient Rehabilitation Department * Elsie Erickson, NUT SIFTER - 08/26/2022 8:37 AM EDT Follow Up [...] deficiency anemia,??GERD??c/b??esophagitis &??Farrell's esophagus??presenting in transfer from [facility], suspected to be in cardiogenic shock [...] tid ac & hs Elsie Erickson APRN [facility] Endocrinology Diabetes Management Pager [phone] * Chiquita Mukherjee, PT - 08/25/2022 5:24 [...] deficiency anemia,??GERD??c/b??esophagitis &??Farrell's esophagus??presenting in transfer from [facility], suspected to be in cardiogenic shock [...] 41 Billing Code: ta x 3 CHIQUITA MUKHERJEE, PT Pager: [phone] Physical Therapy Inpatient Rehabilitation Department * Shea Wilkinson - 08/25/2022 4:15 PM EDT Basket Person Encounter Note Patient Name: Ishan Irving : [id number] MR#: [id number] Admit Date: 08/14/2022 11:11 PM Hospital Day [...] Shashi Young - 08/25/2022 1:30 PM EDT Basket Person Encounter Note Patient Name: Ishan Irving : [id number] MR#: [id number] Admit Date: 08/14/2022 11:11 PM Hospital Day [...] deficiency anemia,??GERD??c/b??esophagitis &??Farrell's esophagus??presenting in transfer from [facility], suspected to be in cardiogenic shock and found to be in mixed shock with concern for stress cardiomyopathy. She is s/p ORIF left femoral neck fracture 5 days ago. Past Medical History: Diagnosis Date ??? Bipolar disorder 02/12/2022 Past Surgical History: Procedure Laterality Date ??? PRO COLONOSCOPY, BIOPSY N/A 03/20/2016 COLONOSCOPY FLEXIBLE, WITH BX performed by David Dejesus MD at [facility] ENDOSCOPY ??? PRO COLONOSCOPY, DIAGNOSTIC N/A 03/01/2020 COLONOSCOPY, DIAGNOSTIC performed by David Dejesus MD at [facility] ENDOSCOPY ??? PRO ENDOSCOPIC US EXAM, ESOPH N/A 03/31/2022 UPPER EUS- ENDOSCOPIC ULTRASOUND performed by David Dejesus MD at [facility] ENDOSCOPY ??? PRO UPPER GI ENDOSCOPY, BIOPSY N/A 04/03/2014 UPPER GASTROINTESTINAL ENDOSCOPY,WITH BIOPSY SINGLE OR MULTIPLE performed by [facility]at [facility] ??? PRO UPPER GI ENDOSCOPY, BIOPSY N/A 03/20/2016 EGD WITH BIOPSY performed by David Dejesus MD at [facility] ENDOSCOPY ??? PRO UPPER GI ENDOSCOPY, BIOPSY N/A 11/22/2018 EGD WITH BIOPSY (WRVU 2.49) performed by David Dejesus MD at [facility] ENDOSCOPY ??? PRO UPPER GI ENDOSCOPY, BIOPSY N/A 03/01/2020 UPPER GASTROINTESTINAL ENDOSCOPY,WITH BIOPSY SINGLE OR MULTIPLE (WRVU 2.49) performed by David Dejesus MD at [facility] END[facility]COPY ??? PRO UPPER GI ENDOSCOPY, BIOPSY N/A 09/23/2021 EGD WITH BIOPSY (WRVU 2.49) performed by David Dejesus MD at [facility] ENDOSCOPY ??? PRO UPPER GI ENDOSCOPY, BIOPSY N/A 03/31/2022 EGD WITH BIOPSY (WRVU 2.49) performed by David Dejesus MD at [facility] ENDOSCOPY ??? PRO UPPER GI ENDOSCOPY, BIOPSY N/A 07/03/2022 EGD WITH BIOPSY (WRVU 2.49) performed by David Dejesus MD at [facility] ENDOSCOPY ??? PRO UPPER GI ENDOSCOPY, DIAGNOSTIC N/A 04/03/2014 EGD, UPPER GI ENDOSCOPY performed by David Dejesus MD at [facility] END[facility]COPY ??? PRO UPPER GI ENDOSCOPY, DIAGNOSTIC N/A 03/01/2020 EGD, UPPER GI ENDOSCOPY performed by David Dejesus MD at [facility] END[facility]COPY Social History: Patient lives with her in a private home Home Setup: 3 HATTIE, then single floor DME: RW, rollator Baseline ADL/Mobility: Independent all ADL/IADL tasks. Drives. Ambulates w/o any AD. 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 Encourage use of [...] and measurable assessment of functional outcome. Pager: [phone] ADRIENNE ADLER OT 08/25/2022 Occupational Therapy Rehabilitation [...] & Farrell's esophagus presenting in transfer from [facility], suspected to be in cardiogenic shock [...] first dose, check VPA level (08/24) - INSTANT POWDER SUPERVISOR to evaluate, pending recs Pulmonary: # [...] barium swallow at this point and that INSTANT POWDER SUPERVISOR is evaluating her regularly. Will plan for CTA cors and chest tomorrow rather than cath- discussed with . Transition from insulin gtt to basal/bolus, appreciate assistance of DM team. Milagros Hernandez MD Cardiovascular Medicine Personal Pager [phone] 08/25/2022 1:51 PM * Afia Bergeron SLP - 08/24/2022 5:57 PM EDT Speech Therapy [...] stool ball [facility] CT. [facility] INSTANT POWDER SUPERVISOR service consulted 08/22/22 to assess oropharyngeal [...] esophageal dysfunction Education: Pt verbally educated to INSTANT POWDER SUPERVISOR role, results of this bedside reasesssment, and plan as outlined below. Pt verbalizes understanding and agreement with plan. Assessment: Pt was seen today for a follow-up INSTANT POWDER SUPERVISOR visit/reassessment. Continues to demonstrate oropharyngeal dysphagia and overt signs of aspiration with trials at the bedside today. Suboptimal positioning likely contributing as pt refuses to sit upright > 30/40 degrees today, also easy to fatigue. For now will suggest ice chips in moderation with RN for oral comfort and swallow stimulation when she is awake/alert and agrees to sit more upright. INSTANT POWDER SUPERVISOR will continue to follow with team. [...] good candidate for the current oral care airplane pilot program taking place on specific units at [facility]. Please use LE oral suction toothbrushes to perform oral care 2-4x daily. ?? Pt will benefit from continued INSTANT POWDER SUPERVISOR services while hospitalized Speech Therapy Goals: Pt will tolerate least restrictive diet without evidence of dysphagia / aspiration. Pt / caregiver will be independent with aspiration precautions, diet modifications, and safe swallowing strategies. Pt will maintain hydration / nutrition with optimal safety and efficiency. Plan: Therapy Frequency (INSTANT POWDER SUPERVISOR Eval): 2-3 times/wk Patient / family are in agreement with treatment plan. Total Minutes (Speech Language Pathology): 25 Thank you for this consult with this patient. Please feel free to page me with any questions or concerns. Afia Bergeron M.S., [facility]-INSTANT POWDER SUPERVISOR Pager: [phone] Speech-Language Pathology Inpatient Rehabilitation Medicine * Danielito [...] stool ball on CT. Plan is for [facility] when medically optimized. Referred to PT for evaluation. Patient with the following active problems: Past Medical History: Diagnosis Date ??? Bipolar disorder 02/12/2022 Past Surgical History: Procedure Laterality Date ??? PRO COLONOSCOPY, BIOPSY N/A 03/20/2016 COLONOSCOPY FLEXIBLE, WITH BX performed by David Dejesus MD at [facility] END[facility]COPY ??? PRO COLONOSCOPY, DIAGNOSTIC N/A 03/01/2020 COLONOSCOPY, DIAGNOSTIC performed by David Dejesus MD at [facility] END[facility]COPY ??? PRO ENDOSCOPIC US EXAM, ESOPH N/A 03/31/2022 UPPER EUS- ENDOSCOPIC ULTRASOUND performed by David Dejesus MD at [facility] END[facility]COPY ??? PRO UPPER GI ENDOSCOPY, BIOPSY N/A 04/03/2014 UPPER GASTROINTESTINAL ENDOSCOPY,WITH BIOPSY SINGLE OR MULTIPLE performed by [facility]at [facility] ??? PRO UPPER GI ENDOSCOPY, BIOPSY N/A 03/20/2016 EGD WITH BIOPSY performed by David Dejesus MD at [facility] END[facility]COPY ??? PRO UPPER GI ENDOSCOPY, BIOPSY N/A 11/22/2018 EGD WITH BIOPSY (WRVU 2.49) performed by David Dejesus MD at [facility] END[facility]COPY ??? PRO UPPER GI ENDOSCOPY, BIOPSY N/A 03/01/2020 UPPER GASTROINTESTINAL ENDOSCOPY,WITH BIOPSY SINGLE OR MULTIPLE (WRVU 2.49) performed by David Dejesus MD at [facility] END[facility]COPY ??? PRO UPPER GI ENDOSCOPY, BIOPSY N/A 09/23/2021 EGD WITH BIOPSY (WRVU 2.49) performed by David Dejesus MD at [facility] END[facility]COPY ??? PRO UPPER GI ENDOSCOPY, BIOPSY N/A 03/31/2022 EGD WITH BIOPSY (WRVU 2.49) performed by David Dejesus MD at [facility] END[facility]COPY ??? PRO UPPER GI ENDOSCOPY, BIOPSY N/A 07/03/2022 EGD WITH BIOPSY (WRVU 2.49) performed by David Dejesus MD at [facility] END[facility]COPY ??? PRO UPPER GI ENDOSCOPY, DIAGNOSTIC N/A 04/03/2014 EGD, UPPER GI ENDOSCOPY performed by David Dejesus MD at [facility] END[facility] ??? PRO UPPER GI ENDOSCOPY, DIAGNOSTIC N/A 03/01/2020 EGD, UPPER GI ENDOSCOPY performed by David Dejesus MD at [facility] END[facility] Social History: Pt was not [...] Objective: Pt seen for evaluation today in [facility]. Upon arrival, pt lying in bed [...] for this consult. GENE YOUNG, PT Pager: [phone] Physical Therapy Inpatient Rehabilitation Department Time IN / OUT: 8882-1984 Total Time: (P) 40 ((3904-1804)) minutes, GENE YOUNG, PT Pager: [phone] Physical Therapy Inpatient Rehabilitation Department 2017 PT [...] bipolar, DM, EtOH, esophagitis, who presented to [facility] 3 days ago after being found [...] was able to discuss plan with provider [facility] [id number]. Current Nutrition Regimen: Active Orders Diet NPO [...] encounter: 69.3 kg (152 lb 12.5 oz). [place] Body Weight (IBW) (kg): 45.45 Wt Readings [...] Exam: Not performed Malnutrition Diagnosis: Not identified (Virgilio oh al, TRAMAINEEN J Parenteral Enteral Nutr. 2011; 36(3): 273-83) Nutrition to continue to follow up while inpatient Nancy Ernst RD Pager #:[phone] * Moustapha Gallegos MD - 08/24/2022 6:09 [...] & Farrell's esophagus presenting in transfer from [facility], suspected to be in cardiogenic shock [...] first dose, check VPA level (08/24) - INSTANT POWDER SUPERVISOR to evaluate Pulmonary: # Acute hypoxic [...] scans with CIC for now. Will ask INSTANT POWDER SUPERVISOR to reassess and consult PT/OT for [...] Milagros Hernandez MD Cardiovascular Medicine Personal Pager [phone] 08/24/2022 2:26 PM * Aileen Mayorga MD [...] or life threatening deterioration? No * Parris Leyav MD - 08/23/2022 12:22 PM EDT Infectious [...] Santos, DO ID Fellow Red Team Pager: [phone] ID ATTENDING I agree with assessment and recommendations above. I reviewed the data set and guided decision-making but did not re-examine the patient today. 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 We [...] of two midnights or is on the [facility] inpatient only procedure list (status C) due to: acute myocardial infarction requiring titration of IV medication and fluid monitoring and acute encephalopathy, severe dysphagia. Milagros Hernandez MD Cardiovascular Medicine Personal Pager [phone] 08/23/2022 8:44 PM * Briana Bryant, INSTANT POWDER SUPERVISOR - 08/22/2022 12:30 PM EDT Speech [...] deficiency anemia,??GERD??c/b??esophagitis &??Farrell's esophagus??presenting in transfer from [facility], suspected to be in cardiogenic shock [...] good candidate for the current oral care airplane pilot program taking place on specific units at [facility]. Please use LE oral suction toothbrushes to perform oral care 2-4x daily. Pt will benefit from continued INSTANT POWDER SUPERVISOR services while hospitalized Speech Therapy Goals: [...] Pt./family are in agreement with treatment plan. INSTANT POWDER SUPERVISOR session: 24 min Thank you for this consult with this patient. Please feel free to page me with any questions or concerns. Briana Bryant MA, CCC-INSTANT POWDER SUPERVISOR Pager: [phone] Speech-Language Pathology Inpatient Rehabilitation Medicine * Aileen [...] & Farrell's esophagus presenting in transfer from [facility], suspected to be in cardiogenic shock [...] 040 73.8 kg (162 lb 11.2 oz) Admit [...] troublemanaging her secretions and overtly failed her INSTANT POWDER SUPERVISOR evaluation as expected. She is being [...] of two midnights or is on the [facility] inpatient only procedure list (status C) due to: multifocal aspiration pneumoniawith respiratory compromise, altered mental status/ toxic metabolic encephalopathy, severe protein calorie malnutrition, stercoral colitis, acute anemia requiring transfusion. Milagros Hernandez MD Cardiovascular Medicine Personal Pager [phone] 08/22/2022 4:13 PM * Rock Purcell, RT [...] 10/8 21%, alert oriented and following commands. 8116-3039: SBT Passed on CPAP +5 21%, Pre [...] for Consult? finanacial concerns Social Work Response: MANAGEMENT TECH met with Ishan's , Antonio, and their son to offer support and follow up on social work consult. MANAGEMENT TECH encouraged Antonio to reach out to their Choices for Care liaisonfor questions related to caregiver benefits, including short term disability. MANAGEMENT TECH also provided [place] with information for Emergency/General Assistance and [place] [phone]. This MANAGEMENT TECH provided contact information for the Office of [...] & Farrell's esophagus presenting in transfer from [facility], suspected to be in cardiogenic shock [...] PHART 7.56* -- 7.54* 7.51* 7.48* 7.53* [id number] 31* -- 31* 30* 34* 26* PO2ART 92 -- 73* 62* 78* 48* [id number] 27.3* -- 25.7 23.2 25.0 21.2 LACTATEVEN 1.6 1.6 1.2 1.6 1.5 1.3 [id number] 30 -- 30 30 30 21 PFRATIOART2 307 -- 243 207 260 229 VBG (Venous Blood Gas) Recent Labs 08/20/22 0541 08/19/22 1445 08/19/22 0507 08/18/2261408/16/222008 LACTATEVEN 1.6 1.6 1.2 1.6 1.5 Mixed Venous Sat Recent Labs 08/16/22201108/16/22 1558 08/16/22 1211 08/16/22 1117 08/16/22 0948 [id number] 56.6 50.5 56.0 49.3 56.5 Objective: Vitals [...] 73.1 kg (161 lb 2.5 oz) 08/18/22 040 69.7 kg (153 lb 10.6 oz) 08/17/22 [...] PHART 7.56* -- 7.54* 7.51* 7.48* 7.53* [id number] 31* -- 31* 30* 34* 26* PO2ART 92 -- 73* 62* 78* 48* [id number] 27.3* -- 25.7 23.2 25.0 21.2 LACTATEVEN 1.6 1.6 1.2 1.6 1.5 1.3 [id number] 30 -- 30 30 30 21 PFRATIOART2 307 -- 243 207 260 229 VBG (Venous Blood Gas) Recent Labs 08/20/22 0541 08/19/22 1445 08/19/22 0507 08/18/22 0615 08/16/222008 LACTATEVEN 1.6 1.6 1.2 1.6 1.5 Mixed Venous Sat Recent Labs 08/16/22 2012 08/16/22 1558 08/16/22 1211 08/16/22 1117 08/16/22 0948 [id number] 56.6 50.5 56.0 49.3 56.5 Microbiology: 08/19, [...] is slightly improved. ?? Imaging: CT Chest 4/13: 1. Multifocal lower lobe predominant consolidative opacities [...] stable. Continue supportive care. Appreciate input from delivery consultant services. Attending Attestation and Certification Please [...] of two midnights or is on the [facility] inpatient only procedure list (status C) due to: decompensated congestive heart failure requiring IV medication and fluid monitoring, acute respiratory compromise and/or hypoxia requiring assessment every 4 hours and the ability to respond immediately to the patient's needs, and multifocal pneumonia requiring IV antibiotic therapy. Milagros Hernandez MD Cardiovascular Medicine Personal Pager [phone] 08/21/2022 3:38 PM * Parris Leyva MD [...] Garsia MD Infectious Diseases Fellow- PGY4 Pager: [phone] 08/21/2022 8:14 AM ID ATTENDING I agree [...] should be followed. Parris Leyva MD Page [phone] All of this 35 minute visit were spent on the unit in coordination of care for the patient, regarding treatment of infection as detailed in note above. * Nancy Ernst, RD - 08/21/2022 8:10 AM EDT Nutrition Progress Note Ishan Irving is a 62 y.o.??female??with h/o bipolar, DM, EtOH, esophagitis, who presented to [facility] 3 days ago after being found [...] was able to discuss plan with provider [facility] 1998. Current Nutrition Regimen: Active Orders Diet NPO [...] 7 PICC Line - Double Lumen 08/19/22 1655 [...] encounter: 72.5 kg (159 lb 13.3 oz). [place] Body Weight (IBW) (kg): 45.45 Wt Readings [...] JPEN J Parenteral Enteral Nutr. 2011; 36(3): 273-94) Nutrition to continue to follow up while inpatient Nancy Ernst RD Pager #:[phone] * Graciela Mcleod RCP - 08/21/2022 6:09 [...] support. There was no answer, so this insurance underwriter left voicemail with contact information. UPDATE: MACY received call back from Ishan's , Antonio, this afternoon. This MACY and Antonio plan to meet when he is at the hospital tomorrow to discuss his questions related to disability benefits. Follow Up Needed: Follow for SW support * Alfonso Blackwood MD - 08/20/2022 8:26 AM EDT Critical Care Medicine Staff Progress Note 62 y.o. female with h/o bipolar, DM, EtOH, esophagitis, who presented to [facility] 3 days ago after being found unresponsive at home. Patient found to have likely pneumonia +/- aspiration, newly reduced EF. 24 hr events/subjective: -on beta blockers -afebrile, high WBC -Secretions - moderate -I/Os positive last 24 hours -now following commands. -MRI results reviewed. ASSESSMENT, MANAGEMENT, and DECISION MAKING: Patient is a 62 yo female with h/o bipolar, EtOH who presented to [facility] 08/12 after being found unresponsive by [...] & Farrell's esophagus presenting in transfer from [facility], suspected to be in cardiogenic shock and found to be in mixed shock with concern for stress cardiomyopathy. 24 Hour Events/Subjective: Overnight: - NAEON. Vent settings PS 30% FiO2 20/12, ~400, though mildly tachypneic 23-28RR. Passed SBT. Last ABG 7.56. Started metoprolol 12.5mg BID yesterday, tolerating well. [...] PHART 7.56* -- 7.54* 7.51* 7.48* 7.53* JBG3PES 31* -- 31* 30* 34* 26* PO2ART 92 -- 73* 62* 78* 48* IHM6IFN 27.3* -- 25.7 23.2 25.0 21.2 LACTATEVEN 1.6 1.6 1.2 1.6 1.5 1.3 [id number] 30 -- 30 30 30 21 PFRATIOART2 307 -- 243 207 260 229 VBG (Venous Blood Gas) Recent Labs 08/20/22 0541 08/19/22 1445 08/19/22 0507 08/18/22 0615 08/16/222008 LACTATEVEN 1.6 1.6 1.2 1.6 1.5 Mixed Venous Sat Recent Labs 08/16/22201108/16/22 1558 08/16/22 1211 08/16/22 1117 08/16/22 0948 [id number] 56.6 50.5 56.0 49.3 56.5 Objective: Vitals [...] 73.1 kg (161 lb 2.5 oz) 08/18/22 040 69.7 kg (153 lb 10.6 oz) 08/17/22 [...] PHART 7.56* -- 7.54* 7.51* 7.48* 7.53* VVW5IQV 31* -- 31* 30* 34* 26* PO2ART 92 -- 73* 62* 78* 48* CBZ8FUU 27.3* -- 25.7 23.2 25.0 21.2 LACTATEVEN 1.6 1.6 1.2 1.6 1.5 1.3 QJZ1IQK 30 -- 30 30 30 21 PFRATIOART2 307 -- 243 207 260 229 VBG (Venous Blood Gas) Recent Labs 08/20/22 0541 08/19/22 1445 08/19/22 0507 08/18/22 0615 08/16/222008 LACTATEVEN 1.6 1.6 1.2 1.6 1.5 Mixed Venous Sat Recent Labs 08/16/22201108/16/22 1558 08/16/22 1211 08/16/22 1117 08/16/22 0948 [id number] 56.6 50.5 56.0 49.3 56.5 Microbiology: 08/14, [...] potential sources identified. Low overall suspicion for ATOMIC PHYSICS TEACHER infection given recent MRI and improvement in [...] FACC, FACP, FASE Cardiovascular Medicine * Daryn Gohsh - 08/20/2022 2:33 AM EDT AMV Protocol: [...] Shashi Young - 08/19/2022 1:25 PM EDT Yony Encounter Note Patient Name: Ishan Irving : [id number] MR#: [id number] Admit Date: 08/14/2022 11:11 PM Hospital Day 5 days Narrative: Self initiated visit to patient for Spiritual support in a regular unit rounds. Assessment: Patient is very busy with nurses. Not a good time for Solution Analyst visit. Intervention and Outcome: An attempted [...] for Consult? finanacial concerns Social Work Response: MANAGEMENT TECH attempted to contact Ishan's , Antonio, to offer support. No one picked up, so MANAGEMENT TECH left message with contact information. Follow Up Needed: Follow for continued support. * Neva Erazo PT - 08/19/2022 11:37 AM EDT PT Note Pt remains intubated and not yet approp for PT evaluation. Will follow-up when approp. Neva Erazo PT Pager [phone] * Adeola Russo RCP - 08/19/2022 9:19 [...] bipolar, DM, EtOH, esophagitis, who presented to [facility] 3 days ago after being found [...] was able to discuss plan with provider [facility] 2370. Current Nutrition Regimen: Active Orders Diet NPO [...] encounter: 73.1 kg (161 lb 2.5 oz). [place] Body Weight (IBW) (kg): 45.45 Wt Readings [...] J Parenteral Enteral Nutr. 2012 September; 36(3): 273-83) Nutrition to continue to follow up while inpatient Nancy Ernst RD Pager #:[phone] * Carlos Terry MD - 08/19/2022 8:13 [...] & Farrell's esophagus presenting in transfer from [facility], suspected to be in cardiogenic shock and found to be in mixed shock with concern for stress cardiomyopathy. 24 Hour Events/Subjective: Overnight: - NAEON. Vent settings PS 30% FiO2 13/8, 376Tv, though mildly tachypneic 23- 28RR. Passed SBT. Last ABG .. Started metoprolol 12.5mg BID, tolerating well. This [...] 1602 PHART 7.54* 7.51* 7.48* 7.53* 7.53* APU8BKC 31* 30* 34* 26* 30* PO2ART 73* 62* 78* 48* 55* VSP7WEV 25.7 23.2 25.0 21.2 24.9 LACTATEVEN 1.2 1.6 1.5 1.3 1.5 OSG2TER 30 30 30 21 21 PFRATIOART2 243 207 260 229 262 VBG (Venous Blood Gas) Recent Labs 08/19/22 0507 08/18/22 0615 08/16/22200808/16/22 1759 08/16/22 1602 LACTATEVEN 1.2 1.6 1.5 1.3 1.5 Mixed Venous Sat Recent Labs 08/16/22201108/16/22 1558 08/16/22 1211 08/16/22 1117 08/16/22 0948 [id number] 56.6 50.5 56.0 49.3 56.5 Objective: Vitals [...] 08/19/22 0507 08/18/22 0615 08/16/22200808/16/22 17508/16/22 1602 PHART 7.54* 7.51* 7.48* 7.53* 7.53* NFW4XCB 31* 30* 34* 26* 30* PO2ART 73* 62* 78* 48* 55* LZD0VKE 25.7 23.2 25.0 21.2 24.9 LACTATEVEN 1.2 1.6 1.5 1.3 1.5 IJX9GTO 30 30 30 21 21 PFRATIOART2 243 207 260 229 262 VBG (Venous Blood Gas) Recent Labs 08/19/22 0507 08/18/22 0615 08/16/22200808/16/22 17508/16/22 1602 LACTATEVEN 1.2 1.6 1.5 1.3 1.5 Mixed Venous Sat Recent Labs 08/16/22 2012 08/16/22 1558 08/16/22 1211 08/16/22 1117 08/16/22 0948 B5FFFB0 56.6 50.5 56.0 49.3 56.5 Microbiology: 08/14, [...] from hemodynamic perspective, off dobutamine/pressors and with [place] now removed. Still intubated with minimal support, but unfortunately mental status continues to preclude extubation despite sedation now being held for 48 hours. Neurology was consulted yesterday given continued altered mental status, and recommended CTH/EEG. CT Head was unremarkable, and EEG demonstrated findings consistent with toxic metabolic encephalopathy. Will reach out to neurology today regarding possibleneed for MRI vs. ATOMIC PHYSICS TEACHER infection workup. Will diurese given net positivity [...] bipolar, DM, EtOH, esophagitis, who presented to [facility] 3 days ago after being found unresponsive at home. Patient found to have likely pneumonia +/- aspiration, newly reduced EF. 24 hr events/subjective: -on beta blockers -afebrile, high WBC -Secretions - moderate -I/Os positive last 24 hours -still not following commands. ASSESSMENT, MANAGEMENT, and DECISION MAKING: Patient is a 62 yo female with h/o bipolar, EtOH who presented to [facility] 08/12 after being found unresponsive by [...] documentation on the unit. * Daryn Ghosh 08/19/2022 2:54 AM EDT AMV Protocol: Yes [...] passed SBT intubated for airway protection Daryn Hancock Mouser * Alfonso Blackwood MD - 08/18/2022 9:43 AM EDT Critical Care Medicine Staff Progress Note 62 y.o. female with h/o bipolar, DM, EtOH, esophagitis, who presented to [facility] 3 days ago after being found [...] with h/o bipolar, EtOH who presented to [facility] 08/12 after being found unresponsive by [...] & Farrell's esophagus presenting in transfer from [facility], suspected to be in cardiogenic shock [...] % ABG (Arterial Blood Gas) Recent Labs 04/1161408/16/22200808/16/22175808/16/22 1602 08/16/22 1216 PHART 7.51* 7.48* 7.53* 7.53* 7.52* MFM5ROH 30* 34* 26* 30* 30* PO2ART 62* 78* 48* 55* 59* RMQ2APR 23.2 25.0 21.2 24.9 24.2 LACTATEVEN 1.6 1.5 1.3 1.5 1.8 RBJ3AEK 30 30 21 21 21 PFRATIOART2 207 260 229 262 281 VBG (Venous Blood Gas) Recent Labs 08/18/22 0608/16/22200808/16/22175808/16/22 1602 08/16/22 1216 LACTATEVEN 1.6 1.5 1.3 1.5 1.8 Mixed Venous Sat Recent Labs 08/16/22201108/16/22 1558 08/16/22 1211 08/16/22 1117 08/16/22 0948 I0QCRY0 56.6 50.5 56.0 49.3 56.5 PA Catheter #'s PA Catheter PAP (mmHg): 31/15 (08/18/22799) PAP (mean): 20 (08/18/22799) PCWP (mmHg): 6 mmHg (08/16/222014) CO (l/min): 4.8 l/min (08/18/22430) CI (l/min/m2): 2.8 l/min/m2 (08/18/22430) SVR (dyne*sec)/cm2: 1481 (dyne*sec)/cm2 (08/18/22430) SVRI (dyne*sec)/cm2: 2474 (dyne*sec)/cm5 (08/18/22430) Stroke Volume (ml): 42.8 ml (08/18/22430) PVR (dyne*sec)/cm2: 215 (dyne*sec)/cm2 (08/16/222014) SVO2 (%): 56.6 % (08/16/222014) CVP (mmHg): 1 mmHg (08/18/22799) Objective: Vitals Last value Range last 24 [...] 64.4* 67.7* 68.0* Recent Labs 08/18/22 0230 08/17/22 2129 08/17/22 [...] 1216 PHART 7.51* 7.48* 7.53* 7.53* 7.52* AWR5FUJ 30* 34* 26* 30* 30* PO2ART 62* 78* 48* 55* 59* UFN7EHS 23.2 25.0 21.2 24.9 24.2 LACTATEVEN 1.6 1.5 1.3 1.5 1.8 OKN2OXP 30 30 21 21 21 PFRATIOART2 207 260 229 262 281 VBG (Venous Blood Gas) Recent Labs 08/18/22 0615 08/16/22200808/16/22 1759 08/16/22 1602 08/16/22 1216 LACTATEVEN 1.6 1.5 1.3 1.5 1.8 Mixed Venous Sat Recent Labs 08/16/22201108/16/22 1558 08/16/22 1211 08/16/22 1117 08/16/22 0948 E4RWOW5 56.6 50.5 56.0 49.3 56.5 Microbiology: 08/14, [...] pressor/inotrope support today and thus will remove [place] catheter. She is also on minimal ventilator [...] FACC, FACP, FASE Cardiovascular Medicine * Ariadne Fuentes, [facility] - 08/18/2022 8:13 AM EDT AMV Protocol: [...] bipolar, DM, EtOH, esophagitis, who presented to [facility] 3 days ago after being found [...] was able to discuss plan with provider [facility] 5904. All Active TF Orders: Tubefeeding [...] encounter: 71.9 kg (158 lb 8 oz). [place] Body Weight: 45.5 kg Usual Body Weight: [...] (NFPE): Not performed Protein-calorie Malnutrition: Not identified (NOLAN Mendez J Parenteral Enteral Nutr. 2011; 36(3): 273-83) Nutrition to continue to follow up while inpatient Nancy Ernst RD Pager #:[phone] * Jigar Cherry RN - 08/17/2022 10:09 AM EDT Called to see Ishan Johanny Irving who is a 62 y.o. female [...] bipolar, DM, EtOH, esophagitis, who presented to [facility] 3 days ago after being found [...] (L) 08/16/2022 PF 260 on 30% PSV 5 T/L/D [place] 08/15 ETT 08/14 CVL 08/15 [place] 08/15 ASSESSMENT, MANAGEMENT, and DECISION MAKING: Patient is a 62 yo female with h/o bipolar, EtOH who presented to [facility] 08/12 after being found unresponsive by [...] & Farrell's esophagus presenting in transfer from [facility], suspected to be in cardiogenic shock [...] 0817 PHART 7.48* 7.53* 7.53* 7.52* 7.46* DOJ7ZJW 34* 26* 30* 30* 36 PO2ART 78* 48* 55* 59* 68* HLH8ONF 25.0 21.2 24.9 24.2 24.8 LACTATEVEN 1.5 1.3 1.5 1.8 2.2 ROJ6CGQ 30 21 21 21 21 PFRATIOART2 260 229 262 281 324 VBG (Venous Blood Gas) Recent Labs 08/16/22200808/16/22 1759 08/16/22 1602 08/16/22 1216 08/16/22 0817 LACTATEVEN 1.5 1.3 1.5 1.8 2.2 Mixed Venous Sat Recent Labs 08/16/22201108/16/22 1558 08/16/22 1211 08/16/22 1117 08/16/22 0948 W7ETXL2 56.6 50.5 56.0 49.3 56.5 PA Catheter #'s PA Catheter PAP (mmHg): 64/38 (08/17/22 1000) PAP (mean): 50 (08/17/22999) PCWP (mmHg): 6 [...] 0817 PHART 7.48* 7.53* 7.53* 7.52* 7.46* KHB2CKZ 34* 26* 30* 30* 36 PO2ART 78* 48* 55* 59* 68* AIT6BUK 25.0 21.2 24.9 24.2 24.8 LACTATEVEN 1.5 1.3 1.5 1.8 2.2 ROQ6LDR 30 21 21 21 21 PFRATIOART2 260 229 262 281 324 VBG (Venous Blood Gas) Recent Labs 08/16/22200808/16/22 1759 08/16/22 1602 08/16/22 1216 08/16/22 0817 LACTATEVEN 1.5 1.3 1.5 1.8 2.2 Mixed Venous Sat Recent Labs 08/16/22201108/16/22 1558 08/16/22 1211 08/16/22 1117 08/16/22 0948 [id number] 56.6 50.5 56.0 49.3 56.5 Troponin - [...] with significant improvement in cardiac index. Contacted [facility] this morning, 72hr BCx remain NGTD. [...] zac Avila MD Internal Medicine, PGY-1 Cardiology [facility][id number] Cardiology Staff Addendum ?? Ishan [...] ILL WITH THESE DIAGNOSES BEING MANAGED BY [facility] TEAM: #Shock, mixed cardiogenic and distributive/septic, now [...] FACP, FASE Cardiovascular Medicine * Richard Alva, [employer] LEAD WORKER - 08/16/2022 10:32 PM EDT AMV Protocol: [...] to manage per AMV/SBT protocol. RICHARD ALVA, KAROLINE * Adi Luo RCP - 08/16/2022 3:59 [...] bipolar, DM, EtOH, esophagitis, who presented to [facility] 3 days ago after being found [...] plt Recent Labs 08/16/22 0336 08/15/22 0305 08/14/225 WBC 29.8* 39.8* 36.7* HGB 9.3* 10.2* [...] Last 3 ProBNP, Trop, CK Recent Labs 08/14/222354 PROBNP >35,000* Studies CXR: PA catheter has [...] with h/o bipolar, EtOH who presented to [facility] 08/12 after being found unresponsive by [...] PCP: Chris Stanley APRN PCP phone number: [phone] Date of Admission: 08/14/2022 ( Hospital Day [...] & Farrell's esophagus presenting in transfer from [facility], suspected to be in cardiogenic shock [...] ABG (Arterial Blood Gas) Recent Labs 08/16/22 0808/16/2244008/15/22235808/15/22200708/15/22 1616 PHART 7.46* 7.47* 7.46* 7.44 7.38 HTM5MSB 36 34* 36 30* 36 PO2ART 68* 71* 75* 78* 78* RCE5EIF 24.8 24.5 24.7 19.7* 20.8 LACTATEVEN 2.2 1.7 2.2 1.6 1.8 RCC6DRR 21 25 25 25 30 PFRATIOART2 324 284 300 312 260 VBG (Venous Blood Gas) Recent Labs 08/16/22 0808/16/2244008/15/22235808/15/22200708/15/22 1616 LACTATEVEN 2.2 1.7 2.2 1.6 1.8 Mixed Venous Sat Recent Labs 08/16/22 0820 08/16/22 0444 08/16/22 0213 08/16/22 0004 08/15/222009 Q1ZYYU0 48.7 54.2 51.3 46.3 49.8 PA Catheter #'s PA Catheter PAP (mmHg): 30/17 (08/16/22599) PAP (mean): 22 (08/16/22599) CO (l/min): 3 l/min (08/16/22799) CI (l/min/m2): 1.8 l/min/m2 (08/16/22799) SVR (dyne*sec)/cm2: 1680 (dyne*sec)/cm2 (08/16/22 08) SVRI (dyne*sec)/cm2: 2587 (dyne*sec)/cm5 (08/15/22 1155) Stroke Volume (ml): 30.5 ml (08/15/22 1155) SVO2 (%): 48.7 % (08/16/22 08) CVP (mmHg): 5 mmHg (08/16/22 06) Objective: Vitals Last value Range last 24 [...] Labs: Recent Labs 08/16/22 0336 08/15/22 0305 08/14/22 [...] Gas) Recent Labs 08/16/22 0817 08/16/22 0441 08/15/22 2359 08/15/22200708/15/22 1616 PHART 7.46* 7.47* 7.46* 7.44 7.38 FBS7LHJ 36 34* 36 30* 36 PO2ART 68* 71* 75* 78* 78* FAV7ICF 24.8 24.5 24.7 19.7* 20.8 LACTATEVEN 2.2 1.7 2.2 1.6 1.8 UFL3YGG 21 25 25 25 30 PFRATIOART2 324 284 300 312 260 VBG (Venous Blood Gas) Recent Labs 08/16/22 0817 08/16/2244008/15/22235808/15/22200708/15/22 1616 LACTATEVEN 2.2 1.7 2.2 1.6 1.8 Mixed Venous Sat Recent Labs 08/16/22 0820 08/16/22 0444 08/16/22 0213 08/16/22 0004 08/15/222009 I8OUIW2 48.7 54.2 51.3 46.3 49.8 Troponin - [...] with significant improvement in cardiac index. Contacted [facility] this morning, 72hr BCx remain NGTD. [...] - Inpatient Alternative Medical Decision Maker: zac Reynaldo T MD Margarita Internal Medicine, PGY-1 Cardiology [facility] #[id number] Cardiology Staff Addendum ?? Ishan [...] Medicine * Richard Alva RRT - 08/15/2022 9:04 PM EDT AMV Protocol: [...] patient was transferred to the ED at [facility]. Per the patient she was following simple commands while at [facility]. Discussed her current status with the family at the bedside. * Vanessa Escalona MD - 08/15/2022 10:28 AM EDT Critical Care Medicine Staff Progress Note 62 y.o. female with h/o bipolar, DM, EtOH, esophagitis, who presented to [facility] 3 days ago after being found [...] heparin, ASA and Lasix. En route to [facility] her pressor requirement increased to include Levophed [...] T/L/D Mcrae 08/15 ETT 08/14 CVL 08/15 [place] 08/15 ASSESSMENT, MANAGEMENT, and DECISION MAKING: Patient is a 62 yo female with h/o bipolar, EtOH who presented to [facility] 08/12 after being found unresponsive by [...] PCP: Chris Stanley APRN PCP phone number: [phone] Date of Admission: 08/14/2022 ( Hospital Day [...] & Farrell's esophagus presenting in transfer from [facility], suspected to be in cardiogenic shock and found to be in mixed shock with concern for stress cardiomyopathy. 24 Hour Events/Subjective: Yesterday: -- Overnight: - Bronx was floated - now off dobutamine and [...] 08/15/22 0555 08/15/22 0531 08/15/22 0311 08/14/22 2433 PHART -- 7.30* 7.25* 7.25* FJJ4KAM -- 41 38 42 PO2ART -- 117* 112* 242* KSW8JXK -- 19.6* 16.0* 17.9* LACTATEVEN 3.1* 3.6* 1.9 2.6* UFV8UZW -- 40 40 60 PFRATIOART2 -- 292 280 403 VBG (Venous Blood Gas) Recent Labs 08/15/22 0555 08/15/22 0531 08/15/22 0311 08/14/22 2357 LACTATEVEN 3.1* 3.6* 1.9 2.6* Mixed Venous Sat Recent Labs 08/15/22 0533 08/15/22 0113 S4LTQA7 63.7 63.3 PA Catheter #'s PA Catheter [...] 08/14/22 2357 PHART -- 7.30* 7.25* 7.25* VFP7BMH -- 41 38 42 PO2ART -- 117* 112* 242* FKJ3WVO -- 19.6* 16.0* 17.9* LACTATEVEN 3.1* 3.6* 1.9 2.6* LRH7FES -- 40 40 60 PFRATIOART2 -- 292 280 403 VBG (Venous Blood Gas) Recent Labs 08/15/22 0555 08/15/22 0531 08/15/22 0311 08/14/22 2357 LACTATEVEN 3.1* 3.6* 1.9 2.6* Mixed Venous Sat Recent Labs 08/15/22 0533 08/15/22 0113 P6DWBV3 63.7 63.3 Troponin HS: 617 at midnight [...] the first few days of hospitalization at [facility]. Will keep her on broad spectrum antibiotics. Will monitor blood cultures obtained here as well as those obtained at [facility] prior to transfer. Her TTE appears [...] - Abx: Vancomycin & zosyn - Call [facility] in AM to inquire about blood culture results #Routine Diet: NPO diet (Give Meds) DVT prophylaxis: heparin gtt GI Prophylaxis: home PPI Code Status: Attempt Cardiopulmonary Resuscitation - Inpatient Alternative Medical Decision Maker: zac Streeter MD Internal Medicine, PGY-2 Cardiology [facility] #[id number] Cardiology Staff Addendum ?? Ishan [...] ILL WITH THESE DIAGNOSES BEING MANAGED BY [facility] TEAM: #Shock, distributive/septic #Multifocal pneumonia leading to [...] FACP, FASE Cardiovascular Medicine * Richard Alva WAF[employer] PRODUCTION LEAD WORKER - 08/15/2022 6:00 AM EDT AMV Protocol: [...] of the Day: 23:30 Pt received from [facility] on VC 30 270 +10 60% ARDS [...] PM EDT 1722: Ishan Irving arrived from in a bed to PACU 6. Pt was attached to monitors, alarms set appropriately & audible. NSR on shelter monitor. Lungs are clear. Blood sugar 156. G tube siteis clean & dry. 1755: Report given to 1 [facility] ERI [place]. 1800: Phase 2 criteria met. * [...] BX performed by David Dejesus MD at [facility] ENDOSCOPY ??? PRO COLONOSCOPY, DIAGNOSTIC N/A 03/01/2020 COLONOSCOPY, DIAGNOSTIC performed by David Dejesus MD at [facility] ENDOSCOPY ??? PRO ENDOSCOPIC US EXAM, ESOPH N/A 03/31/2022 UPPER EUS- ENDOSCOPIC ULTRASOUND performed by David Dejesus MD at [facility] ENDOSCOPY ??? PRO UPPER GI ENDOSCOPY, BIOPSY N/A 04/03/2014 UPPER GASTROINTESTINAL ENDOSCOPY,WITH BIOPSY SINGLE OR MULTIPLE performed by David Dejesus MDat [facility] ENDOSCOPY ??? PRO UPPER GI ENDOSCOPY, BIOPSY N/A 03/20/2016 EGD WITH BIOPSY performed by David Dejesus MD at [facility] ENDOSCOPY ??? PRO UPPER GI ENDOSCOPY, BIOPSY N/A 11/22/2018 EGD WITH BIOPSY (WRVU 2.49) performed by David Dejesus MD at [facility] ENDOSCOPY ??? PRO UPPER GI ENDOSCOPY, BIOPSY N/A 03/01/2020 UPPER GASTROINTESTINAL ENDOSCOPY,WITH BIOPSY SINGLE OR MULTIPLE (WRVU 2.49) performed by David Dejesus MD at [facility] ENDOSCOPY ??? PRO UPPER GI ENDOSCOPY, BIOPSY N/A 09/23/2021 EGD WITH BIOPSY (WRVU 2.49) performed by David Dejesus MD at [facility] ENDOSCOPY ??? PRO UPPER GI ENDOSCOPY, BIOPSY N/A 03/31/2022 EGD WITH BIOPSY (WRVU 2.49) performed by David Dejesus MD at [facility] ENDOSCOPY ??? PRO UPPER GI ENDOSCOPY, BIOPSY N/A 07/03/2022 EGD WITH BIOPSY (WRVU 2.49) performed by David Dejesus MD at [facility] ENDOSCOPY ??? PRO UPPER GI ENDOSCOPY, DIAGNOSTIC N/A 04/03/2014 EGD, UPPER GI ENDOSCOPY performed by David Dejesus MD at [facility] ENDOSCOPY ??? PRO UPPER GI ENDOSCOPY, DIAGNOSTIC N/A 03/01/2020 EGD, UPPER GI ENDOSCOPY performed by David Dejesus MD at [facility] ENDOSCOPY Medications: No current facility-administered medications [...] for dosing. 15 mL 11 ??? Insulin [place], Disposable, (BD INSULIN PEN NEEDLE UF MINI) [...] Roland Pruett MD PCP: Chris Stanley APRN ([phone]) No chief complaint on file. ID: Ishan Irving is a 62 y.o. female w/ PMH of ??recent L femoral neck fracture,??bipolar disorder, resolving medication-induced Parkinsonism, insulin- dependent diabetes mellitus,??hx of alcohol use disorder (reported to be in remission for 1.5 years) c/b chronic pancreatitis, iron deficiency anemia,??GERD??c/b??esophagitis &??Farrell's esophagus, transferred from [facility] to [facility] on 08/14/2022, now on Hospital Day #16, [...] deficiency anemia,?? GERD??c/b??esophagitis &??Farrell's esophagus, admitted to [facility] on 08/14/2022, now on Hospital Day #16, for for mixed shock with concern for stress cardiomyopathy (Takotsubo Cardiomyopathy). Five days prior to initial presentation, patient underwent femoral neck fracture fixation and was discharged home on opioids. Patient was found unresponsive at home and hypoxic to 70s, improved to 90s with NRB mask given by EMS. Was given narcan with minimal response. Brought to [facility] and given additional narcan with no response. OSH Labs prior to transfer to [facility] Cardiology Team: Labs: - ABG: pH 7.43, [...] on diuresis with lasix and transferred to [facility] on 08/14. Patient arrived to [facility] requiring approximately NE30, dobutamine 2.5, and epi 5. Patient was started on goal directed therapy with losartan, metoprolol 25mg daily, spirinolactone 25mg daily, [id number] daily and additionally started on empagliflozin 10mg daily. Patient being followed by [employer] and recommend NPO given significant dysphagia. [...] BX performed by David Dejesus MD at [facility] ENDOSCOPY ??? PRO COLONOSCOPY, DIAGNOSTIC N/A 03/01/2020 COLONOSCOPY, DIAGNOSTIC performed by David Dejesus MD at [facility] ENDOSCOPY ??? PRO ENDOSCOPIC US EXAM, ESOPH N/A 03/31/2022 UPPER EUS- ENDOSCOPIC ULTRASOUND performed by David Dejesus MD at [facility] ENDOSCOPY ??? PRO UPPER GI ENDOSCOPY, BIOPSY N/A 04/03/2014 UPPER GASTROINTESTINAL ENDOSCOPY,WITH BIOPSY SINGLE OR MULTIPLE performed by David Dejesus MDat [facility] ENDOSCOPY ??? PRO UPPER GI ENDOSCOPY, BIOPSY N/A 03/20/2016 EGD WITH BIOPSY performed by David Dejesus MD at [facility] ENDOSCOPY ??? PRO UPPER GI ENDOSCOPY, BIOPSY N/A 11/22/2018 EGD WITH BIOPSY (WRVU 2.49) performed by David Dejesus MD at [facility] ENDOSCOPY ??? PRO UPPER GI ENDOSCOPY, BIOPSY N/A 03/01/2020 UPPER GASTROINTESTINAL ENDOSCOPY,WITH BIOPSY SINGLE OR MULTIPLE (WRVU 2.49) performed by David Dejesus MD at [facility] ENDOSCOPY ??? PRO UPPER GI ENDOSCOPY, BIOPSY N/A 09/23/2021 EGD WITH BIOPSY (WRVU 2.49) performed by David Dejesus MD at [facility] ENDOSCOPY ??? PRO UPPER GI ENDOSCOPY, BIOPSY N/A 03/31/2022 EGD WITH BIOPSY (WRVU 2.49) performed by David Dejesus MD at [facility] ENDOSCOPY ??? PRO UPPER GI ENDOSCOPY, BIOPSY N/A 07/03/2022 EGD WITH BIOPSY (WRVU 2.49) performed by David Dejesus MD at [facility] ENDOSCOPY ??? PRO UPPER GI ENDOSCOPY, DIAGNOSTIC N/A 04/03/2014 EGD, UPPER GI ENDOSCOPY performed by David Dejesus MD at [facility] ENDOSCOPY ??? PRO UPPER GI ENDOSCOPY, DIAGNOSTIC N/A 03/01/2020 EGD, UPPER GI ENDOSCOPY performed by David Dejesus MD at [facility] ENDOSCOPY Social History: Social History Socioeconomic [...] by mouth daily. ??? Blood Sugar Diagnostic ([employer] ULTRA TEST) Strip 1 each by Other [...] for dosing. 15 mL 11 ??? Insulin [place], Disposable, (BD INSULIN PEN NEEDLE UF MINI) [...] Gas): No results found for: PHART, PO2ART, HUN6AJQ, FCQ3TWA VBG (Venous Blood Gas): No results for input(s): PHVEN, XAB4RMG, PO2VEN, RHS7MQK, BEVEN, XGA0MSI in the last 72 hours. EKG: Lab [...] who have questions please contact the health coronary care unit nurse that requested your imaging [...] who have questions please contact the health coronary care unit nurse that requested your imaging [...] who have questions please contact the health coronary care unit nurse that requested your imaging [...] who have questions please contact the health coronary care unit nurse that requested your imaging [...] who have questions please contact the health coronary care unit nurse that requested your imaging first. Head wo Contrast (Generic) (Exam End: 08/16/2022 10:44 PM) Impression No acute intracranial abnormality and no change from prior Thank you for letting us participate in the care of this patient. If you are a health care provider and have any questions regarding this report, please contact the number below. For patients who have questions please contact the health coronary care unit nurse that requested your imaging first. Electronically signed by: Moustapha Correa MD, [facility] ([phone]), at 08/16/2022 11:19 PM XR Abdomen 1 [...] who have questions please contact the health coronary care unit nurse that requested your imaging first. Head wo Contrast (Generic) (Exam End: 08/18/2022 3:14 PM) Impression No acute intracranial process. Thank you for letting us participate in the care of this patient. If you are a health care provider and have any questions regarding this report, please contact the number below. For patients who have questions please contact the health coronary care unit nurse that requested your imaging first. Chest One View (Exam End: 08/19/2022 12:30 [...] who have questions please contact the health coronary care unit nurse that requested your imaging first. Brain wo Contrast (Exam End: 08/19/2022 10:15 PM) Impression No acute infarction, mass or mass effect. Thank you for letting us participate in the care of this patient. If you are a health care provider and have any questions regarding this report, please contact the number below. For patients who have questions please contact the health coronary care unit nurse that requested your imaging first. Chest for [...] who have questions please contact the health coronary care unit nurse that requested your imaging first. Hip w Contrast Left (Exam End: 08/20/2022 [...] who have questions please contact the health coronary care unit nurse that requested your imaging first. Chest w Contrast (Exam End: 08/20/2022 11:04 [...] who have questions please contact the health coronary care unit nurse that requested your imaging first. Hip 2-3 Views Left (Exam End: 08/22/2022 12:19 AM) Impression No radiographic evidence of infection. Thank you for letting us participate in the care of this patient. If you are a health care provider and have any questions regarding this report, please contact the number below. For patients who have questions please contact the health coronary care unit nurse that requested your imaging first. Electronically signed by: Viktor Cervantes MD, [facility] ([phone]), at 08/22/2022 12:43 PM XR Pelvis (Generic) (Exam End: 08/22/2022 12:19 AM) Impression No radiographic evidence of infection status post left hip ORIF. Thank you for letting us participate in the care of this patient. If you are a health care provider and have any questions regarding this report, please contact the number below. For patients who have questions please contact the health coronary care unit nurse that requested your imaging first. Electronically signed by: Richard Billings MD, [facility] ([phone]), at 08/22/2022 10:[address] Angiogram Coronary [...] who have questions please contact the health coronary care unit nurse that requested your imaging first. Chest wo Contrast (Generic) (Exam End: 08/27/2022 8:58 AM) Impression Stable findings of multifocal pneumonia. No interval abnormality. Thank you for letting us participate in the care of this patient. If you are a health care provider and have any questions regarding this report, please contact the number below. For patients who have questions please contact the health coronary care unit nurse that requested your imaging first. Medications: Scheduled: ??? insulin glargine (Lantus;Semglee) (100 [...] fracture s/p surgical fixation , admitted to [facility] on 08/14/2022, now on Hospital Day #16, [...] level 08/29. - level 25mg/L 08/29 - INSTANT POWDER SUPERVISOR to evaluate. - Reach out to [...] Internal Medicine PGY1 Medicine Team: Vega, Pager #[phone] Date: 08/30/2022 Associated attestation - Alfonso Navarrete MD - 08/30/2022 9:19 PM EDT [address] Medicine Service Attending Documentation I certify [...] -continue tube feeds via DHT -plan for INSTANT POWDER SUPERVISOR evaluation and MBS tomorrow #stress cardiomyopathy [...] 2 times daily. ??? Blood Sugar Diagnostic (Mobilitec ULTRA TEST) Strip 1 each by Other [...] for dosing. 15 mL 11 ??? Insulin [place], Disposable, (BD INSULIN PEN NEEDLE UF MINI) [...] BX performed by David Dejesus MD at [facility] ENDOSCOPY ??? PRO COLONOSCOPY, DIAGNOSTIC N/A 03/01/2020 COLONOSCOPY, DIAGNOSTIC performed by David Dejesus MD at [facility] ENDOSCOPY ??? PRO ENDOSCOPIC US EXAM, ESOPH N/A 03/31/2022 UPPER EUS- ENDOSCOPIC ULTRASOUND performed by David Dejesus MD at [facility] END[facility]COPY ??? PRO UPPER GI ENDOSCOPY, BIOPSY N/A 04/03/2014 UPPER GASTROINTESTINAL ENDOSCOPY,WITH BIOPSY SINGLE OR MULTIPLE performed by David Dejesus MDat [facility] END[facility] ??? PRO UPPER GI ENDOSCOPY, BIOPSY N/A 03/20/2016 EGD WITH BIOPSY performed by David Dejesus MD at [facility] ENDOSCOPY ??? PRO UPPER GI ENDOSCOPY, BIOPSY N/A 11/22/2018 EGD WITH BIOPSY (WRVU 2.49) performed by David Dejesus MD at [facility] ENDOSCOPY ??? PRO UPPER GI ENDOSCOPY, BIOPSY N/A 03/01/2020 UPPER GASTROINTESTINAL ENDOSCOPY,WITH BIOPSY SINGLE OR MULTIPLE (WRVU 2.49) performed by David Dejesus MD at [facility] END[facility]COPY ??? PRO UPPER GI ENDOSCOPY, BIOPSY N/A 09/23/2021 EGD WITH BIOPSY (WRVU 2.49) performed by David Dejesus MD at [facility] END[facility]COPY ??? PRO UPPER GI ENDOSCOPY, BIOPSY N/A 03/31/2022 EGD WITH BIOPSY (WRVU 2.49) performed by David Dejesus MD at [facility] END[facility]COPY ??? PRO UPPER GI ENDOSCOPY, BIOPSY N/A 07/03/2022 EGD WITH BIOPSY (WRVU 2.49) performed by David Dejesus MD at [facility] END[facility]COPY ??? PRO UPPER GI ENDOSCOPY, DIAGNOSTIC N/A 04/03/2014 EGD, UPPER GI ENDOSCOPY performed by David Dejesus MD at [facility] END[facility]COPY ??? PRO UPPER GI ENDOSCOPY, DIAGNOSTIC N/A 03/01/2020 EGD, UPPER GI ENDOSCOPY performed by David Dejesus MD at [facility] Social History and Habits: Social [...] PCP: Chris Stanley APRN PCP phone number: [phone] Date of Admission: 08/14/2022 ( Hospital Day [...] & Farrell's esophagus presenting in transfer from [facility], suspected to be in cardiogenic shock. [...] escalated to 4L NC. On arrival to [facility], the patient was given further doses [...] (80 lasix) & dobutamine withconsequent transfer to [facility]. On arrival, the patient was requiring requiring [...] to touch. Neuro: RASS -5 Lines/Drains/Airways Lines: [place], A line, central line EKG (08/15/22): Sinus [...] in the last 7068 hours. Invalid input(s): [id number] No results for input(s): POCGLU in the last 168 hours. Heme No results for input(s): LDH, HAPTOGLOBIN, URICACID in the last 168 hours. ABG (Arterial Blood Gas) No results found for: PHART, PO2ART, YFE3JIR, GYP6EUW Microbiology: Microbiology Results (Last 30 days) No [...] - Abx: Vancomycin & zosyn - Call [facility] in AM to inquire about blood [...] sterile barriertechnique was used throughout. A 4 Venezuelan glide catheter was placed as a nasoenteric [...] a suspected line-associated infection. Location of Procedure: [facility] Risks and Benefits: The risks and [...] to the planned procedure. Hand Hygiene: The watch supervisor did perform hand hygiene prior to line insertion. Catheter type: PICC Lot number: [id number] Procedure Technique: Skin was prepped with chlorhexidine. [...] EEG ROUTINE - PROCDOC Pre-Procedure Diagnose(s): Encephalopathy [facility] Department of Neurology Inpatient Routine EEG Report [...] bipolar, DM, EtOH, esophagitis, who presented to [facility] 3 days ago after being found unresponsive at home. Patient found to have likely pneumonia +/- aspiration, newly reduced EF. Patient not on any sedation, not waking up. MEDICATIONS: -Depakote 500 mg x1 dose -Fentanyl gtt stopped 08/17 -Propofol gtt stopped 08/17 PRIOR EEG(s): -N/A METHODS: A 21 channel digitized electroencephalogram was performed in the [facility] Clinical Neurophysiology Laboratory. The 10/20 international system of electrode placement was used and bipolar and referential electrode montages were recorded. In addition to EEG the patient was monitored for EKGand lateral/vertical eye movements. Video was recorded during the session. RAISE DRILLER'S REPORT: Performed by: Glendy MARCUS Patient was [...] final interpretation as written. Tyree Martin MD [facility] Epilepsy Program Department of Neurology [...] follow. Cedric Gilbert MD Epilepsy Fellow P. [phone] * Jesenia Mejía MD - 08/15/2022 12:47 AM EDT Pulmonary Arterial Line Placement Procedure Note Indications: Catheter placed for diagnosis and treatment of instability. This insertion was not to replace a malfunctioning catheter. This insertion was not due to a suspected line-associated infection. Location of Procedure: [facility] Risks and Benefits: The risks and [...] to the planned procedure. Hand Hygiene: The watch supervisor did perform hand hygiene prior to line insertion. Procedure Details: Insertion Site:internal jugular side:right Confirmation of Venous Placement: Venous placement was confirmed by transducing the pressure. Introducer Insertion Attempts: 1 Comments: See separate note Floating the [place]-Isabelle Catheter Attempts: 1 Sterile Dressing: CHG Impregnated [...] yes Patient location at time of insertion: [facility] Jesenia Mejía MD Associated attestation - Vanessa [...] to the planned procedure. Hand Hygiene: The watch supervisor did perform hand hygiene prior to [...] anticipated to discharge home with family with [facility] and 24/7 care 09/25/22. Medical team has cleared Ishan to return home with [facility]. Patient will discharge with [facility] with a SOC 09/26/22. [facility] has done education on administration of tube feeds and has stated they did well. Delivery of formulas was done 09/24/22 at 1700. Needs for Transition of Care: Plan for discharge is: Home w/ Services Outpatient Agency/Support Group Needs: None Home Health Services: Occupational Therapy, Physical Therapy, Medication checks, Registered Nurse, Home Health Aide, Audio/Video Technician Agency Referrals & Follow-up Care: Contact information for follow-up Infusion Therapy, [facility] [address] [address] [facility] [address] [place] [address] Transportation: ambulance family or friend will provide [...] in agreement with plan. Ashlee Miramontes RN [phone] Pager [phone] * Plan of Care - Leann Harding [...] walker with oneassist for ambulation and ADLs. Chris present and changed this morning with incontinent event. Plans for D/C home Wednesday with HH services. Tolerates tube feed without complication. IV [...] plan for patient to discharge 09/26/22 with [facility] and30/11 care. Plan for [facility] to do [...] and family prefer to discharge home with [facility] and30/11 care. Medical team is aware of patient and family preference. [facility] Transportation: ambulance vs family Barriers to discharge: Discharge planning Supports: Caregiver support Financial: LTC Medicaid *Submitted 09/14 Plan going forward: Care Management will continue to follow and assist with discharge planning and coordination of care as indicated. Anticipated Date of Discharge: 09/25/2022 Ashlee Miramontes RN CM [phone] Pager [phone] * Plan of Care - Leann Harding [...] ADLs]: Hands on Surveillance [continuous indirect monitoring]: Masimo on Patient-specific fall prevention interventions for sensory [...] to Ishan regarding discharge planning. RUPAL and design drafter attempted to give education on importance of utilizing rehab to ensure a safe discharge home. Patient is adamantly refusing rehab at this time. Medical team is aware of family wishes. Ashlee Miramontes RN, CM [phone] Pager [phone] ADDENDUM 1343: Message received from Antonio anaya, expressing extreme frustration regarding needfor rehab before returning home. Family preference is for Ishan to return home with HHS despite therapy recommendations for rehab. Antonio requesting a return call from [facility]UP[employer] and . has been notified. [facility] left a message with and is currently awaiting a return call. Referrals submitted per Antonio anaya's request. The School Commissioner, Antonio anaya has been provided a list of Home Health Agencies/DME vendors which serve their preferred geographic area. A letter describing our affiliations was reviewed with them and they were educated about their right to choose where referrals are placed. RUPAL Provided patient with [facility] Star Quality Rating for Home care hand out. Patient requests referral to : [facility]. [address] [place] [id number] Expected date of discharge: 09/25/22. Referral routed to the [employer] for matching with agency/vendor and to provide any required information. New Tube Feeds: [address] , [place] [address] Toll Free: Nursing Pharmacy Ashlee Miramontes RN [phone] Pager [phone] * Plan of Care - Radha Lockett [...] Referral Placed: 09/10/2022 Last Physical Therapy Recommendation: [facility]entiary facility with to be determined Last Occupational Therapy Recommendation: acute rehabilitation facility with to be determined Plan for discharge is: Detention Facility / Swing Outpatient Agency/Support Group Needs: None Agency Referrals: [place] - pending decision [facility] - declined, no payer source. Ongoing discussion regarding possible contract. Tawanda [facility] - pending response ?? Transportation: ambulance Barriers to discharge: Discharge planning Supports: Caregiver support Financial: LT Medicaid *Submitted 09/14 Plan going forward: Care Management will continue to follow and assist with discharge planning and coordination of care as indicated. Anticipated Date of Discharge: 09/21/2022 Ashlee Miramontes RN [phone] Pager [phone] * Plan of Care - Ama Mckoy [...] EVALUATION: Ongoing * Consult Note - Khadra Luo RN - 09/15/2022 1:42 PM EDT Images [...] HOB higher than 30 degrees) Use a [employer] chair cushion beneath patient at all times [...] Please contact KHADRA LOU RN on pager [phone] or the wound care team at [phone] or pager [phone] with skin and wound care concerns or [...] Referral Placed: 09/10/2022 Last Physical Therapy Recommendation: penitentiary facility with to be determined Last Occupational Therapy Recommendation: acute rehabilitation facility with to be determined Plan for discharge is: Detention Facility / Swing Outpatient Agency/Support Group Needs: None Agency Referrals: [place] - pending decision [facility] - declined, no payer source. Ongoing discussion regarding possible contract. [facility] - pending response Transportation: ambulance Barriers to discharge: Discharge planning Supports: Caregiver support Financial: [facility] Medicaid *Submitted 09/14 Plan going forward: G-tube successfully placed 09/11, patient tolerating tube feeds at this time. Remains NPO. She is s/p ORIF for left femur fracture, currently requiring 2 assist FWW/gait belt for mobility. [place] [facility] Medicaid application has been submitted 09/14. Care Management will continue to follow and assist with discharge planning and coordination of care as indicated. Anticipated Date of Discharge: 09/18/2022 Marybeth Shelley RN, BSN Corporate Travel Coordinator - Medicine Office of Care Management Office: Pager: [phone] * Plan of Care - Ama Mckoy [...] vs home w services Pending insurance for longterm medicaid Gastric retention band removal INDIVIDUALIZED FALL [...] vs home w/services Insurance pending for medicaid exterminator care. INDIVIDUALIZED FALL PREVENTION INTERVENTIONS: Patient-specific fall [...] at this time. D5LR in place, infusing [id number]. Plan for IR to place G- tube around 1500. Speech and Rivet Catcher to floor, deferred assessment at that time [...] & HEPATOLOGY INITIAL CONSULT REQUESTING PROVIDER: Molina Flroes MD NAME: Ishan Liuson : 1960 HPI: Ishan Irving 62 y.o./ [...] BX performed by David Dejesus MD at [facility] ENDOSCOPY ??? PRO COLONOSCOPY, DIAGNOSTIC N/A 03/01/2020 COLONOSCOPY, DIAGNOSTIC performed by David Dejesus MD at [facility] ENDOSCOPY ??? PRO ENDOSCOPIC US EXAM, ESOPH N/A 03/31/2022 UPPER EUS- ENDOSCOPIC ULTRASOUND performed by David Dejesus MD at [facility] END[facility]COPY ??? PRO UPPER GI ENDOSCOPY, BIOPSY N/A 04/03/2014 UPPER GASTROINTESTINAL ENDOSCOPY,WITH BIOPSY SINGLE OR MULTIPLE performed by David Dejesus MDat [facility] ??? PRO UPPER GI ENDOSCOPY, BIOPSY N/A 03/20/2016 EGD WITH BIOPSY performed by David Dejesus MD at [facility] ENDOSCOPY ??? PRO UPPER GI ENDOSCOPY, BIOPSY N/A 11/22/2018 EGD WITH BIOPSY (WRVU 2.49) performed by David Dejesus MD at [facility] END[facility]COPY ??? PRO UPPER GI ENDOSCOPY, BIOPSY N/A 03/01/2020 UPPER GASTROINTESTINAL ENDOSCOPY,WITH BIOPSY SINGLE OR MULTIPLE (WRVU 2.49) performed by David Dejesus MD at [facility] END[facility]COPY ??? PRO UPPER GI ENDOSCOPY, BIOPSY N/A 09/23/2021 EGD WITH BIOPSY (WRVU 2.49) performed by David Dejesus MD at [facility] END[facility]COPY ??? PRO UPPER GI ENDOSCOPY, BIOPSY N/A 03/31/2022 EGD WITH BIOPSY (WRVU 2.49) performed by David Dejesus MD at [facility] END[facility]COPY ??? PRO UPPER GI ENDOSCOPY, BIOPSY N/A 07/03/2022 EGD WITH BIOPSY (WRVU 2.49) performed by David Dejesus MD at [facility] END[facility]COPY ??? PRO UPPER GI ENDOSCOPY, DIAGNOSTIC N/A 04/03/2014 EGD, UPPER GI ENDOSCOPY performed by David Dejesus MD at [facility] END[facility]COPY ??? PRO UPPER GI ENDOSCOPY, DIAGNOSTIC N/A 03/01/2020 EGD, UPPER GI ENDOSCOPY performed by David Dejesus MD at [facility] SOCIAL HX: Social History Socioeconomic [...] for dosing. 15 mL 11 ??? Insulin [place], Disposable, (BD INSULIN PEN NEEDLE UF MINI) [...] who have questions please contact the health coronary care unit nurse that requested your imaging first. Chest One View Final Result 1. Reposition enteric tube now extending below the diaphragm and included iocet-qw-woni. 2. Similar appearance of elevated right hemidiaphragm and linear/patchy bibasilar opacities which may represent atelectasis or possibly aspiration. Thank you for letting us participate in the care of this patient. If you are a health care provider and have any questions regarding this report, please contact the number below. For patients who have questions please contact the health coronary care unit nurse that requested your imaging first. Abdomen 1 view (Generic) Final Result 1. [...] who have questions please contact the health coronary care unit nurse that requested your imaging [...] who have questions please contact the health coronary care unit nurse that requested your imaging first. Fluoro Barium [...] who have questions please contact the health coronary care unit nurse that requested your imaging first. Fluoro Barium [...] who have questions please contact the health coronary care unit nurse that requested your imaging first. Angiogram Coronary Arteries Final Result Coronary calcium [...] who have questions please contact the health coronary care unit nurse that requested your imaging first. Chest wo Contrast (Generic) Final Result Stable findings of multifocal pneumonia. No interval abnormality. Thank you for letting us participate in the care of this patient. If you are a health care provider and have any questions regarding this report, please contact the number below. For patients who have questions please contact the health coronary care unit nurse that requested your imaging first. Hip 2-3 Views Left Final Result No radiographic evidence of infection. Thank you for letting us participate in the care of this patient. If you are a health care provider and have any questions regarding this report, please contact the number below. For patients who have questions please contact the health coronary care unit nurse that requested your imaging first. Electronically signed by: Viktor Cervantes MD, [facility] ([phone]), at 08/22/2022 12:43 PM XR Pelvis (Generic) Final Result No radiographic evidence of infection status post left hip ORIF. Thank you for letting us participate in the care of this patient. If you are a health care provider and have any questions regarding this report, please contact the number below. For patients who have questions please contact the health coronary care unit nurse that requested your imaging first. Electronically signed by: Richard Billings MD, [facility] ([phone]), at 08/22/2022 10:[address] Hip w [...] who have questions please contact the health coronary care unit nurse that requested your imaging first. Chest w Contrast Final Result 1. Multifocal [...] who have questions please contact the health coronary care unit nurse that requested your imaging first. Brain wo Contrast Final Result No acute infarction, mass or mass effect. Thank you for letting us participate in the care of this patient. If you are a health care provider and have any questions regarding this report, please contact the number below. For patients who have questions please contact the health coronary care unit nurse that requested your imaging first. Chest for [...] who have questions please contact the health coronary care unit nurse that requested your imaging first. Chest One View Final Result 1. Increased [...] who have questions please contact the health coronary care unit nurse that requested your imaging first. Head wo Contrast (Generic) Final Result No acute intracranial process. Thank you for letting us participate in the care of this patient. If you are a health care provider and have any questions regarding this report, please contact the number below. For patients who have questions please contact the health coronary care unit nurse that requested your imaging first. Abdomen 1 view (Generic) Final Result Status [...] who have questions please contact the health coronary care unit nurse that requested your imaging first. Head wo Contrast (Generic) Final Result No acute intracranial abnormality and no change from prior Thank you for letting us participate in the care of this patient. If you are a health care provider and have any questions regarding this report, please contact the number below. For patients who have questions please contact the health coronary care unit nurse that requested your imaging first. Electronically signed by: Moustapha Correa MD, [facility] ([phone]), at 08/16/2022 11:19 PM XR Chest One [...] who have questions please contact the health coronary care unit nurse that requested your imaging first. Abdomen 1 view (Generic) Final Result The [...] who have questions please contact the health coronary care unit nurse that requested your imaging first. Abdomen 1 view (Generic) Final Result Nonspecific/nondiagnostic appearance of the abdomen, with large stool burden in the RIGHT hemiabdomen and pelvis. Thank you for letting us participate in the care of this patient. If you are a health care provider and have any questions regarding this report, please contact the number below. For patients who have questions please contact the health coronary care unit nurse that requested your imaging [...] who have questions please contact the health coronary care unit nurse that requested your imaging [...] who have questions please contact the health coronary care unit nurse that requested your imaging [...] re-engaged. Discussed and seen with her outpatient turner machine operator, Dr. Dejesus. Agree with placement of [...] and ADLs]: Hands-on Surveillance [continuous indirect monitoring]: Masimo, Tele Patient-specific fall prevention interventions for sensory deficits provided, if applicable: [X] N/A CPG GOAL OUTCOME EVALUATION: * Op Note - Audi Russ MD - 09/10/2022 12:40 AM EDT [facility] Operative Note Name: Ishan Irving : 1960 Date of surgery: 09/10/2022 Surgeon: Audi Russ MD field research assistant: Ede De Dios MD Preoperative dx: Need for exterminator enteral feeding access due to inability to take PO Postoperative dx: Esophageal stricture Procedure: Esophagoscopy Indication: This is an 62 y.o. year old female with a PMHx of L femoral neck fracture,??bipolar disorder with catatonic episodes, resolving medication- induced Parkinsonism, IDDM,??h/o alcoholism and chronic pancreatitis, iron deficiency anemia,??and GERD??c/b??esophagitis &??Farrell's esophagus. She was admitted to [facility] on 08/14/2022 with mixed shock and stress [...] to be determined Plan for discharge is: Detention Facility / Swing Outpatient Agency/Support Group Needs: None Agency Referrals: [place] - no response [facility] - declined, high cost medication and would need to absorb cost of rehab [facility] - no response Transportation: Barriers to discharge: [...] Patient will need to be applied for [facility] Medicaid. Discussed with patient/spouse. Referral sent to [facility]. Care Management will continue to follow and assist with discharge planning and coordination of care as indicated. Anticipated Date of Discharge: 09/10/2022 Marybeth Shelley RN, BSN Corporate Travel Coordinator - Medicine Office of Care Management Office: Pager: [phone] * Plan of Care - aMc Mcmillan RN - 09/09/2022 2:12 AM EDT [...] 09/09. VSSon RA, except BP soft 90/47, MD notified, IVF D5 LR ordered and running [...] when visiting. Patient does have transfer orders, discharge rn notified of patient's and her husbands request to transfer to a floor. Tube feeds continued through DHT, patient reports feeling of fullness, then later had multiple episiodes of nausea and vomiting. PRN zofran given, and orders received for PRN compazine as well; clerical assigner aware and tube feeding orders adjusted. External [...] ADLs]: Hands on Surveillance [continuous indirect monitoring]: [facility], call light within reach, purposeful rounding, environmental modifications, bed alarm set Patient-specific fall prevention interventions for sensory deficits provided, if applicable: [X] N/A CPG GOAL OUTCOME EVALUATION: * Plan of Care - Merly Garcia RN - 09/05/2022 5:18 AM EDT Assumed care of pt @ 0100 from [facility]. A&Ox4, VSS on 2 L NC. [...] x1. Q4h FSBG completed, SSI admin per MAR. Pt rested between care. * Consult Note [...] RD??c/b??esophagitis &??Farrell's esophagus, who was admitted to [facility] on 08/14/2022 (now on Hospital Day #21), [...] BX performed by David Dejesus MD at [facility] ??? PRO COLONOSCOPY, DIAGNOSTIC N/A 03/01/2020 COLONOSCOPY, DIAGNOSTIC performed by David Dejesus MD at [facility] ??? PRO ENDOSCOPIC US EXAM, ESOPH N/A 03/31/2022 UPPER EUS- ENDOSCOPIC ULTRASOUND performed by David Dejesus MD at [facility] ??? PRO UPPER GI ENDOSCOPY, BIOPSY N/A 04/03/2014 UPPER GASTROINTESTINAL ENDOSCOPY,WITH BIOPSY SINGLE OR MULTIPLE performed by David Dejesus MDat [facility] ??? PRO UPPER GI ENDOSCOPY, BIOPSY N/A 03/20/2016 EGD WITH BIOPSY performed by David Dejesus MD at [facility] ??? PRO UPPER GI ENDOSCOPY, BIOPSY N/A 11/22/2018 EGD WITH BIOPSY (WRVU 2.49) performed by David Dejesus MD at [facility] ??? PRO UPPER GI ENDOSCOPY, BIOPSY N/A 03/01/2020 UPPER GASTROINTESTINAL ENDOSCOPY,WITH BIOPSY SINGLE OR MULTIPLE (WRVU 2.49) performed by David Dejesus MD at [facility] ??? PRO UPPER GI ENDOSCOPY, BIOPSY N/A 09/23/2021 EGD WITH BIOPSY (WRVU 2.49) performed by David Dejesus MD at [facility] ??? PRO UPPER GI ENDOSCOPY, BIOPSY N/A 03/31/2022 EGD WITH BIOPSY (WRVU 2.49) performed by David Dejesus MD at [facility] ??? PRO UPPER GI ENDOSCOPY, BIOPSY N/A 07/03/2022 EGD WITH BIOPSY (WRVU 2.49) performed by David Dejesus MD at [facility] ??? PRO UPPER GI ENDOSCOPY, DIAGNOSTIC N/A 04/03/2014 EGD, UPPER GI ENDOSCOPY performed by David Dejesus MD at [facility] ??? PRO UPPER GI ENDOSCOPY, DIAGNOSTIC N/A 03/01/2020 EGD, UPPER GI ENDOSCOPY performed by David Dejesus MD at [facility] Medications: Current Facility-Administered Medications: ??? [...] Units, 1-4 Units, Subcutaneous, Q4H LAZARUS, Elsie Erickson NUT SIFTER ??? [START ON 09/05/2022] insulin glargine-ygfn (Semglee) (100 unit/mL) subcutaneous injection vial 7 Units, 7 Units, Subcutaneous, Daily, Elsie Erickson NUT SIFTER ??? LORazepam (Ativan) (2 mg/mL) injection 0.3 [...] mL/hrat 09/03/22 1626, 1,320 mL at 09/03/22 162 ??? sacubitriL-valsartan (Entresto) 24-26 mg per tablet [...] for dosing. 15 mL 11 ??? Insulin [place], Disposable, (BD INSULIN PEN NEEDLE UF MINI) [...] saw and discussed the recent MBS and INSTANT POWDER SUPERVISOR concerns. Based on Ishan's history, we [...] MD aware. Up to commode with OT, INSTANT POWDER SUPERVISOR consulted. NGT maintained per protocol. Q2 [...] Last Occupational Therapy Recommendation: acute rehabilitation facility, penitentiary facility with to be determined Plan for discharge is: Detention Facility / Swing Outpatient Agency/Support Group Needs: None Agency Referrals: Based on discussions with the multi-disciplinary healthcare team, the patient would benefit from SNF level of care at discharge. I have met with the outside energy sales representatives to: ?? discuss discharge planning needs. ?? provide the [facility], Office of Care Management letter from the [employer] pertaining to rehabreferrals. ?? provide a letter describing our affiliations within the [facility] and educate about their right to choose where referrals are sent. ?? provide the [facility] Star Quality Rating handout. ?? review the different levels of rehab including SNF, swing, and acute. ?? provide a list of facilities within their preferred geographic area. ?? request that they provide at least three choices for referral. They have requested referrals to: [facility] [address] [place] [address] [facility] ([facility]) [address] [place] [address] [facility] [address] [place] [id number] Does patient have COVID vaccine card: Yes; Copy obtained: No Note routed to a Wooden Furniture Polisher who will communicate referrals to facilities and [...] of Discharge: 09/07/2022 Marybeth Shelley RN, BSN Corporate Travel Coordinator - Medicine Office of Care Management Office: Pager: [phone] * Consult Note - Aicha Mckeon MD [...] this assessment. Recommendations were communicated to primary steam meter reader. Aicha Mckeon MD 09/03/2022 Coding Determination 1. [...] Minimal/Low [] Low [] Minimal/Low [] Low 66099 [] Moderate [x] Moderate [] Moderate [] Moderate 98775 [x] High [] High [x] High [x] High 20655 Final Coding Determination: High Associated attestation - Keenan Rey MD - 09/18/2022 1:06 PM EDT Psychiatry Attending Note I discussed this patient's situation with the resident but did not see the patient. I contributed to the formulation and treatment planning as documented in the resident's note. Keenan Rey MD Psychiatry Consultation Pager: [phone] * Consult Note - Ghulam Torres MD - 09/03/2022 10:18 AM EDT Serious Illness Conversation Date of Conversation: 09/03/2022 Discussion with: Patient + Agent/Surrogate ?? Understanding of illness: Accurate understanding of prognosis or disease trajectory I met with Ishan and her nAtonio at bedside. They've been 25 years. Met on [employer] online 25 years ago. He went onto a chat group, made a lot of jokes and Ishan private messaged him. It's been love ever since. Ishan moved out here to [place] to be with Antonio from [place]. They have 2boys together (Estiven 23 in [employer]; and Richard 19 studying at [employer] in politics economics). They are [...] Strengths: Family Sara or spirituality As above. [place] family. 2 sons Richard and Estiven. Self describe recovering Catholics with a smile. Will engage Basket Person for prayers of healing and support alongside [...] Rehab rojelio # Healing arts engaged # Basket Person referral made # Pet Therapy if they [...] with the patient, counseling with the patient's resident care technician(s), coordination with the consulting service, coordination with [...] bedside. They've been 25 years. Met on [employer] online 25 years ago. He went onto a chat group, made a lot of jokes and Ishan private messaged him. It's been love ever since. Ishan moved out here to [place] to be with Antonio from [place]. They have 2boys together (Estiven 23 in [employer] and Richard 19 studying at [employer] in politics economics). They are [...] and have gotten clear information/communication from the [facility]. Prognostic information given: Function-based prognosis this is [...] Strengths: Family Sara or spirituality As above. [place] family. 2 sons Richard and Estiven. Self describe recovering Catholics with a smile. Will engage Basket Person for prayers of healing and support alongside [...] Rehab rojelio # Healing arts engaged # Basket Person referral made # Pet Therapy if they [...] soft and slowed. ?? Language: fluent in algerian and without paraphasic errors ?? Mood: I [...] this assessment. Recommendations were communicated to primary steam meter reader. Aicha Mckeon MD 09/02/2022 Coding Determination 1. [...] Minimal/Low [] Low [] Minimal/Low [] Low 62490 [] Moderate [x] Moderate [] Moderate [] Moderate 12046 [x] High [] High [x] High [x] High 49656 Final Coding Determination: High Associated attestation - Keenan Rey MD - 09/18/2022 1:05 PM EDT Psychiatry Attending Note I discussed this patient's situation with the resident but did not see the patient. I contributed to the formulation and treatment planning as documented in the resident's note. Keenan Rey MD Psychiatry Consultation Pager: [phone] * Consult Note - Dipak Chiang RN [...] HOB higher than 30 degrees) Use a [employer] chair cushion beneath patient at all times [...] weeks Discussed plan with: /SCOTTY/PA: Robert RN: i[employer]cent[employer] Please contact Dipak Chiang RN on secure chat, pager [phone] or the wound care team at [phone] or pager [phone] with skin and wound care concerns or [...] (2-assist currently) andis not yet cleared by INSTANT POWDER SUPERVISOR for diet. Of note, neurology was [...] Psychiatric History: Diagnoses: bipolar disorder Current treatment: Depakote seroquel as per PCP. Was on olanzapine [...] 20 years ago when she lived in [place]. Problem List: Patient Active Problem List Diagnosis [...] BX performed by David Dejesus MD at [facility] ??? PRO COLONOSCOPY, DIAGNOSTIC N/A 03/01/2020 COLONOSCOPY, DIAGNOSTIC performed by David Dejesus MD at [facility] ??? PRO ENDOSCOPIC US EXAM, ESOPH N/A 03/31/2022 UPPER EUS- ENDOSCOPIC ULTRASOUND performed by David Dejesus MD at [facility] ??? PRO UPPER GI ENDOSCOPY, BIOPSY N/A 04/03/2014 UPPER GASTROINTESTINAL ENDOSCOPY,WITH BIOPSY SINGLE OR MULTIPLE performed by David Dejesus MDat [facility] ??? PRO UPPER GI ENDOSCOPY, BIOPSY N/A 03/20/2016 EGD WITH BIOPSY performed by David Dejesus MD at [facility] ??? PRO UPPER GI ENDOSCOPY, BIOPSY N/A 11/22/2018 EGD WITH BIOPSY (WRVU 2.49) performed by David Dejesus MD at [facility] ??? PRO UPPER GI ENDOSCOPY, BIOPSY N/A 03/01/2020 UPPER GASTROINTESTINAL ENDOSCOPY,WITH BIOPSY SINGLE OR MULTIPLE (WRVU 2.49) performed by David Dejesus MD at [facility] ??? PRO UPPER GI ENDOSCOPY, BIOPSY N/A 09/23/2021 EGD WITH BIOPSY (WRVU 2.49) performed by David Dejesus MD at [facility] ??? PRO UPPER GI ENDOSCOPY, BIOPSY N/A 03/31/2022 EGD WITH BIOPSY (WRVU 2.49) performed by David Dejesus MD at [facility] ??? PRO UPPER GI ENDOSCOPY, BIOPSY N/A 07/03/2022 EGD WITH BIOPSY (WRVU 2.49) performed by David Dejesus MD at [facility] ??? PRO UPPER GI ENDOSCOPY, DIAGNOSTIC N/A 04/03/2014 EGD, UPPER GI ENDOSCOPY performed by David Dejesus MD at [facility] ??? PRO UPPER GI ENDOSCOPY, DIAGNOSTIC N/A 03/01/2020 EGD, UPPER GI ENDOSCOPY performed by David Dejesus MD at [facility] Inpatient Medications: Current Facility-Administered Medications Medication Dose Route Frequency Provider Last Rate Last Admin ??? insulin glargine-ygfn (Semglee) (100 unit/mL) subcutaneous injection vial 16 Units 16 Units Subcutaneous Daily Elsie Erickson APRN 16 Units at 09/01/22 0841 ??? [START ON 09/02/2022] insulin lispro protamine-insulin lispro (HumaLOG MIX 75/25) (100 units/mL)subcutaneous injection vial 33 Units 33 Units Subcutaneous Daily Elsie Erickson APRN ??? tube feeding diet 1,320 mL Per [...] Units 1-5 Units Subcutaneous Q4H Elsie Dang APRN 1 Units at 09/01/22 1134 ??? polyethylene [...] Q1H PRTyler Reyez MD Stopped at 08/21/22 0552 Or ??? potassium chloride 20 mEq in sterile water 100 mL infusion 20 mEq Intravenous Q1H PRTyler Reyez MD Stopped at 08/24/22 0531 ??? chlorhexidine [...] 10% infusion 250 mL Intravenous Q30 Min PRTyler Reyez MD Or ??? glucagon (Glucagen) (1 mg/mL) injection solution 1 mg 1 mg Intramuscular Q30 Min PRN Tyler Cobb MD ??? thiamine (Vitamin B-1) (100 mg/mL) injection 100 mg 100 mg Intravenous Daily Tyler Cobb MD100 mg at 09/01/22 0850 Pertinent Medical Review of Systems: Social History: lives with her ; has two adult sons (one at [employer], one lives with friends somewhere [...] rhythm and soft ?? Language: fluent in algerian ?? Mood: depressed Affect: constricted and mood-congruent ?? Thought Process: linear and logical ?? Associations: intact ?? Thought Content: no homicidal ideation no suicidal ideation ; no PI/delusions Perception: denied auditory hallucinations denied visual hallucinations not observed responding to internal stimuli ?? Orientation: oriented to self; oriented to month/day/year; oriented to [facility] and being in ahospital but could not [...] Last Ca, Mg, Phos Recent Labs 09/01/22 021 CALCIUM 9.4 PHOS 4.3 MAGNESIUM 0.94 VPA level on at 04:48, 25 at 11:35 External Record [...] this assessment. Recommendations were communicated to primary steam meter reader Irwin Jones. KEENAN REY MD 09/01/2022 Coding [...] [] Minimal - [] Minimal [] Straightforward 05896 [] Low [] Low [] Low [] Low 69946 [] Moderate [x] Moderate [] Moderate [] Moderate 18893 [x] High [] High [x] High [x] High 90785 Final Coding Determination: High: 58320 * Consult Note - Nery Ott MD [...] on NRB. She was initially brought to [facility]. There labs showed WBC 15, Hgb [...] on hep gtt, loaded with Aspirin,started on COOK MORNING, diuresed, and sent to [facility] for Cardiology workup. This was ultimately felt to be [place] cardiomyopathy and she was medically managed. She was transferred to the medical service yesterday for further evaluation as she is having dysphagia and regurgitation. Per report, she has a dobhoff in place. She was seen by INSTANT POWDER SUPERVISOR today who note inconsistent symptoms/signs of [...] BX performed by David Dejesus MD at [facility] ??? PRO COLONOSCOPY, DIAGNOSTIC N/A 03/01/2020 COLONOSCOPY, DIAGNOSTIC performed by David Dejesus MD at [facility] ??? PRO ENDOSCOPIC US EXAM, ESOPH N/A 03/31/2022 UPPER EUS- ENDOSCOPIC ULTRASOUND performed by David Dejesus MD at [facility] ??? PRO UPPER GI ENDOSCOPY, BIOPSY N/A 04/03/2014 UPPER GASTROINTESTINAL ENDOSCOPY,WITH BIOPSY SINGLE OR MULTIPLE performed by David Dejesus MDat [facility] ??? PRO UPPER GI ENDOSCOPY, BIOPSY N/A 03/20/2016 EGD WITH BIOPSY performed by David Dejesus MD at [facility] ??? PRO UPPER GI ENDOSCOPY, BIOPSY N/A 11/22/2018 EGD WITH BIOPSY (WRVU 2.49) performed by David Dejesus MD at [facility] ??? PRO UPPER GI ENDOSCOPY, BIOPSY N/A 03/01/2020 UPPER GASTROINTESTINAL ENDOSCOPY,WITH BIOPSY SINGLE OR MULTIPLE (WRVU 2.49) performed by David Dejesus MD at [facility] ??? PRO UPPER GI ENDOSCOPY, BIOPSY N/A 09/23/2021 EGD WITH BIOPSY (WRVU 2.49) performed by David Dejesus MD at [facility] ??? PRO UPPER GI ENDOSCOPY, BIOPSY N/A 03/31/2022 EGD WITH BIOPSY (WRVU 2.49) performed by David Dejesus MD at [facility] ??? PRO UPPER GI ENDOSCOPY, BIOPSY N/A 07/03/2022 EGD WITH BIOPSY (WRVU 2.49) performed by David Dejesus MD at [facility] ??? PRO UPPER GI ENDOSCOPY, DIAGNOSTIC N/A 04/03/2014 EGD, UPPER GI ENDOSCOPY performed by David Dejesus MD at [facility] ??? PRO UPPER GI ENDOSCOPY, DIAGNOSTIC N/A 03/01/2020 EGD, UPPER GI ENDOSCOPY performed by David Dejesus MD at [facility] SOCIAL HX: Social History Socioeconomic [...] ??? lancets (ONE TOUCH DELICA) 33 gauge [facility] 1 each by Other route 3 times [...] for dosing. 15 mL 11 ??? Insulin [place], Disposable, (BD INSULIN PEN NEEDLE UF MINI) [...] who have questions please contact the health coronary care unit nurse that requested your imaging first. Angiogram Coronary Arteries Final Result Coronary calcium [...] who have questions please contact the health coronary care unit nurse that requested your imaging first. Chest wo Contrast (Generic) Final Result Stable findings of multifocal pneumonia. No interval abnormality. Thank you for letting us participate in the care of this patient. If you are a health care provider and have any questions regarding this report, please contact the number below. For patients who have questions please contact the health coronary care unit nurse that requested your imaging first. Hip 2-3 Views Left Final Result No radiographic evidence of infection. Thank you for letting us participate in the care of this patient. If you are a health care provider and have any questions regarding this report, please contact the number below. For patients who have questions please contact the health coronary care unit nurse that requested your imaging first. Electronically signed by: Viktor Cervantes MD, [facility] ([phone]), at 08/22/2022 12:43 PM XR Pelvis (Generic) Final Result No radiographic evidence of infection status post left hip ORIF. Thank you for letting us participate in the care of this patient. If you are a health care provider and have any questions regarding this report, please contact the number below. For patients who have questions please contact the health coronary care unit nurse that requested your imaging first. Electronically signed by: Richard Billings MD, [facility] ([phone]), at 08/22/2022 10:[address] Hip w [...] who have questions please contact the health coronary care unit nurse that requested your imaging first. Chest w Contrast Final Result 1. Multifocal [...] who have questions please contact the health coronary care unit nurse that requested your imaging first. Brain wo Contrast Final Result No acute infarction, mass or mass effect. Thank you for letting us participate in the care of this patient. If you are a health care provider and have any questions regarding this report, please contact the number below. For patients who have questions please contact the health coronary care unit nurse that requested your imaging first. Chest for [...] who have questions please contact the health coronary care unit nurse that requested your imaging first. Chest One View Final Result 1. Increased [...] who have questions please contact the health coronary care unit nurse that requested your imaging first. Head wo Contrast (Generic) Final Result No acute intracranial process. Thank you for letting us participate in the care of this patient. If you are a health care provider and have any questions regarding this report, please contact the number below. For patients who have questions please contact the health coronary care unit nurse that requested your imaging first. Abdomen 1 view (Generic) Final Result Status [...] who have questions please contact the health coronary care unit nurse that requested your imaging first. Head wo Contrast (Generic) Final Result No acute intracranial abnormality and no change from prior Thank you for letting us participate in the care of this patient. If you are a health care provider and have any questions regarding this report, please contact the number below. For patients who have questions please contact the health coronary care unit nurse that requested your imaging first. Electronically signed by: Moustapha Correa MD, [facility] ([phone]), at 08/16/2022 11:19 PM XR Chest One [...] who have questions please contact the health coronary care unit nurse that requested your imaging first. Abdomen 1 view (Generic) Final Result The [...] who have questions please contact the health coronary care unit nurse that requested your imaging first. Abdomen 1 view (Generic) Final Result Nonspecific/nondiagnostic appearance of the abdomen, with large stool burden in the RIGHT hemiabdomen and pelvis. Thank you for letting us participate in the care of this patient. If you are a health care provider and have any questions regarding this report, please contact the number below. For patients who have questions please contact the health coronary care unit nurse that requested your imaging [...] who have questions please contact the health coronary care unit nurse that requested your imaging [...] who have questions please contact the health coronary care unit nurse that requested your imaging [...] She had a modified barium swallow with INSTANT POWDER SUPERVISOR yesterday that showed tamara oropharyngeal aspiration. [...] of the hospital. Recommendations: -Continue working with INSTANT POWDER SUPERVISOR -If no meaningful improvement in oropharyngeal [...] them as documented. Cesar Cervantes MD, MS gym manager Controller Operations And Hr Manager, Gastroenterology and Hepatology * Plan of Care [...] to be determined Last Occupational Therapy Recommendation: penitentiary facility, acute rehabilitation facility with to be [...] Anticipated Date of Discharge: 09/04/2022 Flavio ROLAND vascular ultrasound technologist- Medicine Office of Care Management Office# [phone] Pager: [phone] * Plan of Care - Vicente Zarco [...] [] 701-900 mg [] 901-1100 mg [] 8966-7575 mg [] 4621-5268 mg [] Above 1500 mg Medications: No [...] for dosing. 15 mL 11 ??? Insulin [place], Disposable, (BD INSULIN PEN NEEDLE UF MINI) [...] weeks. Will recheck 25, Vit D at [facility] outpatient follow up appointment. C. Will [...] to be determined Last Occupational Therapy Recommendation: penitentiary facility with to be determined Plan for discharge is: Pending Hospital Course and PT/OT Recommendations Outpatient Agency/Support Group Needs: Other *TBD Agency Referrals: Family has requested [facility] for rehab. Pt still with [...] 08/31/2022 Office of Care Management Surgery Team Corporate Travel Coordinator [email or web address] [email or web address] Pager #[phone] * Consult Note - Elsie Erickson, VAUGHN - 08/24/2022 4:20 PM EDT Diabetes Management [...] deficiency anemia,??GERD??c/b??esophagitis &??Farrell's esophagus??presenting in transfer from [facility], suspected to be in cardiogenic shock [...] with gestational diabetes in 2002 and then [id number]. Current outpatient diabetes regimen: Diabetes Provider: PCP [...] pasta. No alcohol, last drink per her 2021 a sip of wine Typical exercise regimen [...] deficiency anemia,??GERD??c/b??esophagitis &??Farrell's esophagus??presenting in transfer from [facility], suspected to be in cardiogenic shock [...] Erickson APRN Endocrinology Diabetes Management Service Pager: [phone] minutes of this 80 minute visit [...] deficiency anemia,??GERD??c/b??esophagitis &??Farrell's esophagus??presented as transfer from [facility] 08/15/22 suspected to be in cardiogenic [...] BX performed by David Dejesus MD at [facility] ENDOSCOPY ??? PRO COLONOSCOPY, DIAGNOSTIC N/A 03/01/2020 COLONOSCOPY, DIAGNOSTIC performed by David Dejesus MD at [facility] ENDOSCOPY ??? PRO ENDOSCOPIC US EXAM, ESOPH N/A 03/31/2022 UPPER EUS- ENDOSCOPIC ULTRASOUND performed by David Dejesus MD at [facility] ENDOSCOPY ??? PRO UPPER GI ENDOSCOPY, BIOPSY N/A 04/03/2014 UPPER GASTROINTESTINAL ENDOSCOPY,WITH BIOPSY SINGLE OR MULTIPLE performed by David Dejesus MDat [facility] ENDOSCOPY ??? PRO UPPER GI ENDOSCOPY, BIOPSY N/A 03/20/2016 EGD WITH BIOPSY performed by David Dejesus MD at [facility] ENDOSCOPY ??? PRO UPPER GI ENDOSCOPY, BIOPSY N/A 11/22/2018 EGD WITH BIOPSY (WRVU 2.49) performed by David Dejesus MD at [facility] ENDOSCOPY ??? PRO UPPER GI ENDOSCOPY, BIOPSY N/A 03/01/2020 UPPER GASTROINTESTINAL ENDOSCOPY,WITH BIOPSY SINGLE OR MULTIPLE (WRVU 2.49) performed by David Dejesus MD at [facility] ENDOSCOPY ??? PRO UPPER GI ENDOSCOPY, BIOPSY N/A 09/23/2021 EGD WITH BIOPSY (WRVU 2.49) performed by David Dejesus MD at [facility] ENDOSCOPY ??? PRO UPPER GI ENDOSCOPY, BIOPSY N/A 03/31/2022 EGD WITH BIOPSY (WRVU 2.49) performed by David Dejesus MD at [facility] ENDOSCOPY ??? PRO UPPER GI ENDOSCOPY, BIOPSY N/A 07/03/2022 EGD WITH BIOPSY (WRVU 2.49) performed by David Dejesus MD at [facility] ENDOSCOPY ??? PRO UPPER GI ENDOSCOPY, DIAGNOSTIC N/A 04/03/2014 EGD, UPPER GI ENDOSCOPY performed by David Dejesus MD at [facility] ENDOSCOPY ??? PRO UPPER GI ENDOSCOPY, DIAGNOSTIC N/A 03/01/2020 EGD, UPPER GI ENDOSCOPY performed by David Dejesus MD at [facility] ENDOSCOPY Allergies Allergen Reactions ??? Meperidine [...] for dosing. 15 mL 11 ??? Insulin [place], Disposable, (BD INSULIN PEN NEEDLE UF MINI) [...] in M/R/U distributions Motor intact wrist flexion/extension, feather duster winder Brisk capillary refill distally Left Upper Extremity Exam: No ecchymosis, erythema, or overlying skin changes No effusion in shoulder / elbow / wrist No obvious TTP clavicle, shoulder, humerus, elbow, forearm, wrist, hand Apparent painless range of motion of shoulder / elbow / wrist / fingers Sensation appears intact to light touch in M/R/U distributions Motor intact wrist flexion/extension, feather duster winder Brisk capillary refill distally Right Lower Extremity [...] infection. Orthopaedics will sign off. Please page [phone] when the patient is extubated and examinable for more reliable exam of the L hip. We will f/u the pending XR and ESR/CRP and reach out as needed. - Activity: WBAT LLE - DVT prophylaxis: Per primary, on SQH - Antibiotics: Per primary, on Zosyn - Diet: Per primary - Imaging needed: XR L hip and pelvis Rober Mensah MD Orthopaedic Surgery, [id number] * Consult Note - Parris Leyva MD [...] pancreatitis, GERD/Barrets esophagitis who was transferred from [facility] with cardiogenic shock. Patient fell on [...] started on heparin infusion and transferred to [facility] on 08/15. Vasopressor requirement on admission. Pip/tazo [...] follow. Please page ID Red team (pager [phone]) with questions or concerns. Stefan Garsia MD 08/20/2022 3:35 PM Pager: [phone] Infectious Diseases Attending I saw the patient with the infectious diseases fellow. I have made some modifications and agree with the presentation of data and the assessment and plan as outlined above. Parris Leyva MD Professor, Department of Medicine Page [phone] minutes of this 80 minute visit [...] potential sources identified. Low overall suspicion for ATOMIC PHYSICS TEACHER infection given recent MRI and improvement in [...] pressor support, and she was transferred to [facility] on 08/14/22. Over the course of several [...] correction factor scale for dosing. ??? Insulin [place], Disposable, (BD INSULIN PEN NEEDLE UF MINI) [...] no documentation 96 % 30 % Ventilator 08/19/222000 37.4 ??C (99.3 ??F) no documentation no [...] Negative mcL Appearance UA Clear Clear Spec [place] UA 1.018 1.005 - 1.030 Color UA Yellow Yellow Culture Reflexed No Urinalysis Microscopic Exam Result Value Ref Range RBC UA 1 0 - 4 /HPF WBC UA 3 0 - 5 /HPF Bacteria UA Rare (A) None /HPF Yeast Harts UA Occasional (A) None /HPF Yeast Hyph UA Occasional (A) None /HPF Squam Epith UA 1 <=4 /HPF Hyaline Cast UA 2 0 - 2 /LPF Lactate, whole blood, send to lab ([facility]) Result Value Ref Range Lactate WB 1.6 [...] ? Tim Emmanuel MD Department of Neurology [place] [phone] Pager [phone] Email: [email or web address] ?? * Plan of Care - Carlos Arnold RN - 08/19/2022 4:50 PM EDT Peripherally Inserted Central Catheter (PICC) Teaching Sheet Peripherally inserted central catheters ([id number]) (PICC) are used when you need IV [...] midline catheter? PICC lines are used for longterm treatments. PICC lines may be used for [...] can be set up via the nurse Corporate Travel Coordinator to help you. What are possible complications [...] Efficacy, Safety, Use, and Administration of [employer] 2005 * Consult Note - Tim Emmanuel MD - 08/19/2022 7:02 AM EDT Neurology Consultation Patient name: Ishan Irving Date of : 1960 PCP: Chris Stanley APRN CC: Somnolence We have been asked to see Ishan Irving by Niurka Aylaa HPI: Ishan Irving is a 62 y.o. [...] pressor support, and she was transferred to [facility] on 08/14/22. Over the course of several [...] correction factor scale for dosing. ??? Insulin [place], Disposable, (BD INSULIN PEN NEEDLE UF MINI) [...] mg/dL Lactate, whole blood, send to lab ([facility]) Result Value Ref Range Lactate WB 1.6 [...] hours. Tim Emmanuel MD [place] [address] Pager #[phone] Email: [email or web address] * Consult Note - Nichelle Barrett MD [...] correction factor scale for dosing. ??? Insulin [place], Disposable, (BD INSULIN PEN NEEDLE UF MINI) [...] 6-10 /HPF Hypochromia Moderate Ovalocytes 1-5 /HPF [place] Cells 6-10 /HPF Giant Platelets Less than [...] Clinical Neurophysiology * Consult Note - Veena King RPH - 08/18/2022 9:59 AM EDT ?? The [...] Alternately, during off-hours you niurka hallman call [phone] to contact a pharmacist. * Consult Note - Lorene Michelle [facility] - 08/17/2022 4:53 PM EDT [facility] Pharmacokinetics Note Drug: Vancomycin Pharmacokinetic target: AUC24 (range) 400-600 mg/L.hr Current regimen: 750 mg IV every 24 hours Ishan Irving is a(n) 62 years old female receiving Vancomycin 750 mg IV every 24 hours for pneumonia Recent measured serum creatinine values: 08/17/2022 00:45 1.1 mg/dL 08/16/2022 18:00 1.15 mg/dL 08/16/2022 03:36 1.42 mg/dL Assessment: Analysis of the most recent level(s) using [place] gives the following patient-specific pharmacokinetic parameters: CL: [...] COVID test: Lab Results Component Value Date [id number] Not Detected 08/15/2022 Past medical History: Past Medical History: Diagnosis Date ??? Bipolar disorder 02/12/2022 Hospitalizations Within the Past 30 Days: no previous admission in last 30 days Current Decision-Making Capacity: Other (spouse is decision maker based on surrogacy; no AD in place) If AD's have not been completed the following surrogate would be surrogate decision maker per [place] decision making law. (Only good for 180 days) Any patient receiving care in [place] must abide by [place] law. The hierarchy for surrogate decision making [...] (i) The agent with financial power of trademark attorney or a conservator appointed in accordance [...] hip recovery) Home Address confirmed as: [address] [facility] [address] Social & Family Supports: All names listed [...] N/A ; Prescription Coverage: Yes Preferred Pharmacy: [facility] [address] [address] Status: Patient is a : No Primary Care Provider confirmed: Chris Stanley APRN [phone] Patient/Caregiver Goals of Treatment: to be determined [...] Jacobsen RN * Consult Note - Tapan Hastings, [facility] - 08/15/2022 1:05 AM EDT Clinical Pharmacist Note - VancFD Ishan Irving [id number] Ishan Irving is a 62 y.o. [...] have. Alternately,during off-hours (9p-7a) you may call [phone] to contact a pharmacist. Tapan Hastings RPH documented in this encounter Plan of Treatment Upcoming Encounters Date Type Department Care Team (Late st Contact Info) Description 05/26/2024 1:10 PM EST [place] [address] Gavin Carrillo MD [facility] INTERVENTIONAL RADIOLOGY [place], [place] [id number] 06/05/2024 1:20 PM EST Office Visit Cardiology at [address] [address] Milagros Hernandez MD [facility] [place] [address] Pending Results Name Type Priority Associated Diagnoses [...] :13 AM EDT Upper GI Endoscopy, Diagnostic (10962) 09/09/2022 11:35 PM EDT failed MBS with [...] CAPACITY Routine 08/21/2022 10:00 AM EDT HC PC HISTOPLASMA ANTIGEN Routine 08/21/2022 10:00 AM EDT POTASSIUM Routine 08/21/2022 10:00 AM EDT FERRITIN Routine 08/21/2022 10:00 AM EDT POCT GLUCOSE Routine 08/21/2022 9:57 AM EDT HC [facility] ASPERGILLUS (GALACTOMANNAN) ANTIGEN Routine 08/21/2022 8:30 AM EDT POCT GLUCOSE Routine 08/21/2022 8:28 AM EDT HC [facility] FUNGITELL; (1, 3) [id number] Routine 08/21/2022 8:00 AM EDT POCT GLUCOSE [...] Suture Release (09/25/2022 9:56 AM EDT) Narrative [facility] RAD - 09/25/2022 10:16 AM EDT This exam is auto-finalizing. No interpretation was done. Moustapha Hart MD IMG IR ORDERABLES [place], [place] * POCT Glucose (09/25/2022 6:26 AM EDT) Glucose, POC 155 65 - 199 mg/dL [facility] Comment: Supplemental ranges: <140 mg/dL before meals <180 mg/dL all other times of the day Blood 09/25/2022 6:26 AM EDT 09/25/2022 6:26 AM EDT Jose Mcleod MD POINT OF CARE TEST O RDERABLES Performing Organization Address [facility] Co de Phone Number [facility] [place] [address] * (ABNORMAL) Basic Metabolic Panel (non-fasting) (09/25/2022 3:11 AM EDT) Glucose 187 65 - 199 mg/dL [facility] Comment:Diabetes: >=200 mg/d L plus symptoms Blood Urea Nitrogen 32(H) 8 - 18 mg/dL [facility] Creatinine 0.62(L) 0.70 - 1.20 mg/dL [facility] Sodium 142 135 - 145 mmol/L [facility] Potassium 4.6 3.5 - 5.0 mmol/L [facility] Comment: Please note: ??Patients with WBC >100,000 may have falsely elevated Potassium levels. ??For accurate Potassium quantification in these patients send serum separator tube (gold top) for subsequent determinations. ??Contact the Clinical Chemistry Laboratory if there are any questions. Chloride 103 98 - 107 mmol/L [facility] Carbon Dioxide 31 22 - 31 mmol/L [facility] Anion Gap 8 5 - 15 mmol/L [facility] Calcium 9.8 8.5 - 10.5 mg/dL [facility] Est Glomerular Filtration Rate 101 >=60 mL/min/1. 73 m?? [facility] Comment: This patient's estimated GFR was [...] Pascal MD CHEMISTRY ORDERABLES Performing Organization Address City/[facility]/ZIP Co de Phone Number [facility] [address] * Phosphorus (09/25/2022 3:11 AM EDT) Phosphorus 4.0 2.5 - 4.5 mg/dL [facility] Blood 09/25/2022 3:11 AM EDT 09/25/2022 3:54 AM EDT Narrative Resulting Agency Comment Spec In Lab Richard Pascal MD CHEMISTRY ORDERABLES Performing Organization Address City/[facility] Co de Phone Number [facility] [address] * Magnesium (09/25/2022 3:11 AM EDT) Magnesium 0.95 0.69 - 1.07 mmol/L [facility] Blood 09/25/2022 3:11 AM EDT 09/25/2022 3:54 AM EDT Narrative Resulting Agency Comment Spec In Lab Richard Pascal MD CHEMISTRY ORDERABLES Performing Organization Address City/[facility] Co de Phone Number [facility] [address] * (ABNORMAL) POCT Glucose (09/24/2022 8:44 PM EDT) Glucose, POC 218(H) 65 - 199 mg/dL [facility] Comment: Supplemental ranges: <140 mg/dL before meals <180 mg/dL all other times of the day Blood 09/24/2022 8:44 PM EDT 09/24/2022 8:44 PM EDT Jose Mcleod MD POINT OF CARE TEST O RDERABLES [facility] [place] [address] * (ABNORMAL) POCT Glucose (09/24/2022 4:03 PM EDT) Glucose, POC 243(H) 65 - 199 mg/dL [facility] Comment: Supplemental ranges: <140 mg/dL before meals <180 mg/dL all other times of the day Blood 09/24/2022 4:03 PM EDT 09/24/2022 4:03 PM EDT Jose Mcleod MD POINT OF CARE TEST O RDERABLES Performing Organization Address [facility]/ZIP Co de Phone Number [facility] [address] * (ABNORMAL) POCT Glucose (09/24/2022 11:44 AM EDT) Glucose, POC 272(H) 65 - 199 mg/dL [facility] Comment: Supplemental ranges: <140 mg/dL before meals <180 mg/dL all other times of the day Blood 09/24/2022 11:4 4 AM EDT 09/24/2022 11:44 AM EDT Jose Mcleod MD POINT OF CARE TEST O RDERABLES [facility] [place] [address] * POCT Glucose (09/24/2022 6:21 AM EDT) Glucose, POC 186 65 - 199 mg/dL [facility] Comment: Supplemental ranges: <140 mg/dL before meals <180 mg/dL all other times of the day Blood 09/24/2022 6:21 AM EDT 09/24/2022 6:21 AM EDT Jose Mcleod MD POINT OF CARE TEST O RDERABLES Performing Organization Address [facility] Co de Phone Number [facility] [place] [address] * Lavender Tube HOLD (09/24/2022 5:31 AM EDT) Lavender Hold Sample in lab. [facility] Blood Venous Draw / Unknown 09/24/2022 5:31 AM EDT 09/24/2022 5:48 AM EDT Jigar Streeter MD HEMATOLOGY ORDERABLE S Performing Organization Address [facility] Co de Phone Number [facility] [place] [address] * (ABNORMAL) Basic Metabolic Panel (non-fasting) (09/24/2022 5:31 AM EDT) Glucose 188 65 - 199 mg/dL [facility] Comment:Diabetes: >=200 mg/d L plus symptoms Blood Urea Nitrogen 31(H) 8 - 18 mg/dL [facility] Creatinine 0.69(L) 0.70 - 1.20 mg/dL [facility] Sodium 139 135 - 145 mmol/L [facility] Potassium 4.5 3.5 - 5.0 mmol/L [facility] Comment: Please note: ??Patients with WBC >100,000 may have falsely elevated Potassium levels. ??For accurate Potassium quantification in these patients send serum separator tube (gold top) for subsequent determinations. ??Contact the Clinical Chemistry Laboratory if there are any questions. Chloride 100 98 - 107 mmol/L [facility] Carbon Dioxide 30 22 - 31 mmol/L [facility] Anion Gap 9 5 - 15 mmol/L [facility] Calcium 10.0 8.5 - 10.5 mg/dL [facility] Est Glomerular Filtration Rate 98 >=60 mL/min/1. 73 m?? [facility] Comment: This patient's [...] Pascal MD CHEMISTRY ORDERABLES Performing Organization Address City/[facility]/ZIP Co de Phone Number [facility] [address] * (ABNORMAL) Phosphorus (09/24/2022 5:31 AM EDT) Phosphorus 4.6(H) 2.5 - 4.5 mg/dL [facility] Blood 09/24/2022 5:31 AM EDT 09/24/2022 5:48 AM EDT Narrative Resulting Agency Comment Spec In Lab Richard Pascal MD CHEMISTRY ORDERABLES Performing Organization Address [facility] Co de Phone Number [facility] [address] * Magnesium (09/24/2022 5:31 AM EDT) Magnesium 0.95 0.69 - 1.07 mmol/L [facility] Blood 09/24/2022 5:31 AM EDT 09/24/2022 5:48 AM EDT Narrative Resulting Agency Comment Spec In Lab Richard Pascal MD CHEMISTRY ORDERABLES Performing Organization Address City/[facility] Co de Phone Number [facility] [address] * (ABNORMAL) POCT Glucose (09/23/2022 7:58 PM EDT) Glucose, POC 226(H) 65 - 199 mg/dL [facility] Comment: Supplemental ranges: <140 mg/dL before meals <180 mg/dL all other times of the day Blood 09/23/2022 7:58 PM EDT 09/23/2022 7:58 PM EDT Jose Mcleod MD POINT OF CARE TEST O RDERABLES Performing Organization Address City/[facility] Co de Phone Number [facility] [address] * POCT Glucose (09/23/2022 4:40 PM EDT) Glucose, POC 94 65 - 199 mg/dL [facility] Comment: Supplemental ranges: <140 mg/dL before meals <180 mg/dL all other times of the day Blood 09/23/2022 4:40 PM EDT 09/23/2022 4:40 PM EDT Jose Mcleod MD POINT OF CARE TEST O RDERAREYMUNDO Performing Organization Address [facility] Co de Phone Number [facility] [place] [address] * (ABNORMAL) POCT Glucose (09/23/2022 2:00 PM EDT) Glucose, POC 276(H) 65 - 199 mg/dL [facility] Comment: Supplemental ranges: <140 mg/dL before meals <180 mg/dL all other times of the day Blood 09/23/2022 2:00 PM EDT 09/23/2022 2:00 PM EDT Jose cMleod MD POINT OF CARE TEST O RDERABLES Performing Organization Address City/[facility] Co de Phone Number [facility] [place] [address] * (ABNORMAL) POCT Glucose (09/23/2022 1:14 PM EDT) Glucose, POC 324(H) 65 - 199 mg/dL [facility] Comment: Supplemental ranges: <140 mg/dL before meals <180 mg/dL all other times of the day Blood 09/23/2022 1:14 PM EDT 09/23/2022 1:14 PM EDT Jose Mcleod MD POINT OF CARE TEST O RDERABLES Performing Organization Address City/[facility] Co de Phone Number [facility] [place] [address] * (ABNORMAL) POCT Glucose (09/23/2022 11:37 AM EDT) Glucose, POC 291(H) 65 - 199 mg/dL [facility] Comment: Supplemental ranges: <140 mg/dL before meals <180 mg/dL all other times of the day Blood 09/23/2022 11:3 7 AM EDT 09/23/2022 11:37 AM EDT Jose Mcleod MD POINT OF CARE TEST O RDERABLES Performing Organization Address [facility] Co de Phone Number [facility] [address] * POCT Glucose (09/23/2022 6:24 AM EDT) Glucose, POC 191 65 - 199 mg/dL [facility] Comment: Supplemental ranges: <140 mg/dL before meals <180 mg/dL all other times of the day Blood 09/23/2022 6:24 AM EDT 09/23/2022 6:24 AM EDT Jose Mcleod MD POINT OF CARE TEST O RDERABLES Performing Organization Address City/[facility] Co de Phone Number [facility] [place] [address] * Scan, Peripheral Blood (09/23/2022 5:02 AM EDT) Plat estimate Normal [facility] RBC Morphology Abnormal [facility] Microcyte 6-10 /HPF [facility] Hypochromia Moderate [facility] Ovalocytes 1-5 /HPF [facility] Target Cells 1-5 /HPF [facility] Blood 09/23/2022 5:02 AM EDT 09/23/2022 5:23 AM EDT Narrative Resulting Agency Comment Spec In Lab Alan Hunt MD HEMATOLOGY ORDERABLE S Performing Organization Address City/[facility]/[place] [address] * (ABNORMAL) Differential, Automated (09/23/2022 5:02 AM EDT) Neutrophil % 51.8 % [facility] Neutrophil Absolute 3.50 1.70 - 6.10 x10(3)/mc L [facility] Lymph % 32.8 % [facility] Lymphocytes Abs 2.2 0.9 - 3.2 x10(3)/mc L [facility] Monocyte % 10.3 % [facility] Monocyte Abs 0.7 0.3 - 0.9 x10(3)/mc L [facility] Eos % 2.8 % [facility] Eosinophils Abs 0.2 0.0 - 0.4 x10(3)/mc L [facility] Basophil % 1.6 % [facility] Baso Absolute 0.1 0.0 - 0.1 x10(3)/mc L [facility] Immature Gran % 0.70 % [facility] Comment: Immature granulocytes(IG's)percentage and absolute count will include metamyelocytes, myelocytes, and promyelocytes. Blood smears from CBCs yielding IG's will be scanned manually for concordance. If this scan disagrees with the automated IG or if promyelocytes are noted, a manual differential will be performed. Immature Gran Absolute 0.05(H) 0.00 - 0.04 x10(3)/mc L [facility] Blood 09/23/2022 5:02 AM EDT 09/23/2022 5:23 AM EDT Narrative Resulting Agency Comment Spec In Lab Alan Hunt MD HEMATOLOGY ORDERABLE S Performing Organization Address City/[facility]/[place] [address] * (ABNORMAL) Hemogram (09/23/2022 5:02 AM EDT) White Blood Cell 6.8 4.0 - 9.5 x10(3)/mc L [facility] Red Blood Cell 4.78 4.00 - 5.21 x10(6)/mc L [facility] Hemoglobin 11.5(L) 11.7 - 15.5 g/dL [facility] Hematocrit 38.4 35.7 - 45.8 % [facility] Mean Cell Volume 80.3(L) 82.6 - 94.4 fL [facility] Mean Cell Hemoglobin 24.1(L) 27.1 - 32.0 pg [facility] Mean Cell Hemoglobin Concentration 29.9(L) 31.7 - 35.0 g/dL [facility] Platelet 222 145 - 357 x10(3)/mc L [facility] RDW Standard Deviation 81.1(H) 37.0 - 46.0 fL [facility] RDW coefficient of variation 28.9(H) 11.5 - 14.1 % [facility] Mean Platelet Volume Not Measured 7.6 - 12.9 fL [facility] NRBC% auto 0.0 % [facility] NRBC Absolute 0.000 0.000 - 0.000 x10(3)/ L [facility] Blood 09/23/2022 5:02 AM EDT 09/23/2022 5:23 AM EDT Narrative Resulting Agency Comment Spec In Lab Alan Hunt MD HEMATOLOGY ORDERABLE S [facility] [place] [address] * (ABNORMAL) Basic Metabolic Panel (non-fasting) (09/23/2022 5:02 AM EDT) Glucose 203(H) 65 - 199 mg/dL [facility] Comment:Diabetes: >=200 mg/d L plus symptoms Blood Urea Nitrogen 28(H) 8 - 18 mg/dL [facility] Creatinine 0.57(L) 0.70 - 1.20 mg/dL [facility] Sodium 139 135 - 145 mmol/L [facility] Potassium 4.6 3.5 - 5.0 mmol/L [facility] Comment: Please note: ??Patients with WBC >100,000 may have falsely elevated Potassium levels. ??For accurate Potassium quantification in these patients send serum separator tube (gold top) for subsequent determinations. ??Contact the Clinical Chemistry Laboratory if there are any questions. Chloride 101 98 - 107 mmol/L [facility] Carbon Dioxide 30 22 - 31 mmol/L [facility] Anion Gap 8 5 - 15 mmol/L [facility] Calcium 10.0 8.5 - 10.5 mg/dL [facility] Est Glomerular Filtration Rate 103 >=60 mL/min/1. 73 m?? [facility] Comment: This patient's estimated GFR was [...] In Lab Richard Pascal MD CHEMISTRY ORDERABLES [facility] [place] [address] * Phosphorus (09/23/2022 5:02 AM EDT) Phosphorus 4.4 2.5 - 4.5 mg/dL [facility] Blood 09/23/2022 5:02 AM EDT 09/23/2022 5:23 AM EDT Narrative Resulting Agency Comment Spec In Lab Richard Pascal MD CHEMISTRY ORDERABLES [facility] [place] [address] * Magnesium (09/23/2022 5:02 AM EDT) Magnesium 0.91 0.69 - 1.07 mmol/L [facility] Blood 09/23/2022 5:02 AM EDT 09/23/2022 5:23 AM EDT Narrative Resulting Agency Comment Spec In Lab Richard Pascal MD CHEMISTRY ORDERABLES [facility] [place] [address] * POCT Glucose (09/22/2022 8:23 PM EDT) Glucose, POC 185 65 - 199 mg/dL [facility] Comment: Supplemental ranges: <140 mg/dL before meals <180 mg/dL all other times of the day Blood 09/22/2022 8:23 PM EDT 09/22/2022 8:23 PM EDT Jose Mcleod MD POINT OF CARE TEST O RDERABLES Performing Organization Address [facility] Co de Phone Number [facility] [place] [address] * (ABNORMAL) POCT Glucose (09/22/2022 4:35 PM EDT) Glucose, POC 220(H) 65 - 199 mg/dL [facility] Comment: Supplemental ranges: <140 mg/dL before meals <180 mg/dL all other times of the day Blood 09/22/2022 4:35 PM EDT 09/22/2022 4:35 PM EDT Jose Mcleod MD POINT OF CARE TEST O RDERABLES Performing Organization Address City/[facility] Co de Phone Number [facility] [address] * (ABNORMAL) POCT Glucose (09/22/2022 11:24 AM EDT) Glucose, POC 304(H) 65 - 199 mg/dL [facility] Comment: Supplemental ranges: <140 mg/dL before meals <180 mg/dL all other times of the day Blood 09/22/2022 11:2 4 AM EDT 09/22/2022 11:24 AM EDT Jose Mcleod MD POINT OF CARE TEST O RDERAREYMUNDO Performing Organization Address City/[facility] Co de Phone Number [facility] [place] [address] * POCT Glucose (09/22/2022 6:38 AM EDT) Glucose, POC 188 65 - 199 mg/dL [facility] Comment: Supplemental ranges: <140 mg/dL before meals <180 mg/dL all other times of the day Blood 09/22/2022 6:38 AM EDT 09/22/2022 6:38 AM EDT Jose Mcleod MD POINT OF CARE TEST O GABRIELLA Performing Organization Address [facility] Co de Phone Number [facility] [address] * (ABNORMAL) Basic Metabolic Panel (non-fasting) (09/22/2022 5:44 AM EDT) Glucose Not Perf 65 - 199 [facility] Comment: Sample improperly processed prior to receipt. Diabetes: >=200 mg/dL plus symptoms Blood Urea Nitrogen 24(H) 8 - 18 mg/dL [facility] Creatinine 0.56(L) 0.70 - 1.20 mg/dL [facility] Sodium 139 135 - 145 mmol/L [facility] Potassium 4.7 3.5 - 5.0 mmol/L [facility] Comment: Please note: ??Patients with WBC >100,000 may have falsely elevated Potassium levels. ??For accurate Potassium quantification in these patients send serum separator tube (gold top) for subsequent determinations. ??Contact the Clinical Chemistry Laboratory if there are any questions. Chloride 101 98 - 107 mmol/L [facility] Carbon Dioxide 28 22 - 31 mmol/L [facility] Anion Gap 10 5 - 15 mmol/L [facility] Calcium 10.3 8.5 - 10.5 mg/dL [facility] Est Glomerular Filtration Rate 103 >=60 mL/min/1. 73 m?? [facility] Comment: This patient's estimated GFR was [...] Pascal MD CHEMISTRY ORDERABLES Performing Organization Address City/[facility] Co de Phone Number [facility] [address] * Phosphorus (09/22/2022 5:44 AM EDT) Phosphorus 4.0 2.5 - 4.5 mg/dL [facility] Blood 09/22/2022 5:44 AM EDT 09/22/2022 7:46 AM EDT Narrative Resulting Agency Comment Spec In Lab Richard Pascal MD CHEMISTRY ORDERABLES Performing Organization Address [facility]/ZIP Co de Phone Number [facility] [address] * Magnesium (09/22/2022 5:44 AM EDT) Magnesium 0.89 0.69 - 1.07 mmol/L [facility] Blood 09/22/2022 5:44 AM EDT 09/22/2022 7:46 AM EDT Narrative Resulting Agency Comment Spec In Lab Richard Pascal MD CHEMISTRY ORDERABLES Performing Organization Address City/[facility] Co de Phone Number [facility] [address] * POCT Glucose (09/21/2022 8:05 PM EDT) Glucose, POC 168 65 - 199 mg/dL [facility] Comment: Supplemental ranges: <140 mg/dL before meals <180 mg/dL all other times of the day Blood 09/21/2022 8:05 PM EDT 09/21/2022 8:05 PM EDT Jose Mcleod MD POINT OF CARE TEST O RDERABLES Performing Organization Address [facility] Co de Phone Number [facility] [address] * (ABNORMAL) POCT Glucose (09/21/2022 4:28 PM EDT) Glucose, POC 258(H) 65 - 199 mg/dL [facility] Comment: Supplemental ranges: <140 mg/dL before meals <180 mg/dL all other times of the day Blood 09/21/2022 4:28 PM EDT 09/21/2022 4:28 PM EDT Jose Mcleod MD POINT OF CARE TEST O RDERABLES Performing Organization Address [facility] Co de Phone Number [facility] [address] * (ABNORMAL) POCT Glucose (09/21/2022 11:27 AM EDT) Glucose, POC 221(H) 65 - 199 mg/dL [facility] Comment: Supplemental ranges: <140 mg/dL before meals <180 mg/dL all other times of the day Blood 09/21/2022 11:2 7 AM EDT 09/21/2022 11:27 AM EDT Jose Mcleod MD POINT OF CARE TEST O RDERABLES Performing Organization Address City/[facility]/ZIP Co de Phone Number [facility] [place] [address] * (ABNORMAL) POCT Glucose (09/21/2022 7:00 AM EDT) Glucose, POC 211(H) 65 - 199 mg/dL [facility] Comment: Supplemental ranges: <140 mg/dL before meals <180 mg/dL all other times of the day Blood 09/21/2022 7:00 AM EDT 09/21/2022 7:00 AM EDT Olamide Stallings MD POINT OF CARE TEST O RDERABLES [facility] [place] [address] * (ABNORMAL) Basic Metabolic Panel (non-fasting) (09/21/2022 5:54 AM EDT) Glucose 203(H) 65 - 199 mg/dL [facility] Comment:Diabetes: >=200 mg/d L plus symptoms Blood Urea Nitrogen 23(H) 8 - 18 mg/dL [facility] Creatinine 0.51(L) 0.70 - 1.20 mg/dL [facility] Sodium 137 135 - 145 mmol/L [facility] Potassium 4.6 3.5 - 5.0 mmol/L [facility] Comment: Please note: ??Patients with WBC >100,000 may have falsely elevated Potassium levels. ??For accurate Potassium quantification in these patients send serum separator tube (gold top) for subsequent determinations. ??Contact the Clinical Chemistry Laboratory if there are any questions. Chloride 101 98 - 107 mmol/L [facility] Carbon Dioxide 27 22 - 31 mmol/L [facility] Anion Gap 9 5 - 15 mmol/L [facility] Calcium 9.8 8.5 - 10.5 mg/dL [facility] Est Glomerular Filtration Rate 105 >=60 mL/min/1. 73 m?? [facility] Comment: This patient's estimated GFR was [...] In Lab Richard Pascal MD CHEMISTRY ORDERABLES [facility] [place] [address] * Phosphorus (09/21/2022 5:54 AM EDT) Phosphorus 4.0 2.5 - 4.5 mg/dL [facility] Blood 09/21/2022 5:54 AM EDT 09/21/2022 6:10 AM EDT Narrative Resulting Agency Comment Spec In Lab Richard Pascal MD CHEMISTRY ORDERABLES Performing Organization Address City/[facility]/ZIP Co de Phone Number [facility] [place] [address] * Magnesium (09/21/2022 5:54 AM EDT) Magnesium 0.84 0.69 - 1.07 mmol/L [facility] Blood 09/21/2022 5:54 AM EDT 09/21/2022 6:10 AM EDT Narrative Resulting Agency Comment Spec In Lab Richard Pascal MD CHEMISTRY ORDERABLES Performing Organization Address City/[facility]/ZIP Co de Phone Number [facility] [address] * POCT Glucose (09/20/2022 11:25 PM EDT) Glucose, POC 166 65 - 199 mg/dL [facility] Comment: Supplemental ranges: <140 mg/dL before meals <180 mg/dL all other times of the day Blood 09/20/2022 11:2 5 PM EDT 09/20/2022 11:25 PM EDT Olamide Stallings MD POINT OF CARE TEST O GABRIELLA Performing Organization Address City/[facility]/ZIP Co de Phone Number [facility] [place] [address] * (ABNORMAL) POCT Glucose (09/20/2022 9:19 PM EDT) Glucose, POC 291(H) 65 - 199 mg/dL [facility] Comment: Supplemental ranges: <140 mg/dL before meals <180 mg/dL all other times of the day Blood 09/20/2022 9:19 PM EDT 09/20/2022 9:19 PM EDT Olamide Stallings MD POINT OF CARE TEST O GABRIELLA Performing Organization Address [facility] Co de Phone Number [facility] [address] * (ABNORMAL) POCT Glucose (09/20/2022 4:09 PM EDT) Glucose, POC 221(H) 65 - 199 mg/dL [facility] Comment: Supplemental ranges: <140 mg/dL before meals <180 mg/dL all other times of the day Blood 09/20/2022 4:09 PM EDT 09/20/2022 4:09 PM EDT Olamide Stallings MD POINT OF CARE TEST O GABRIELLA Performing Organization Address City/[facility] Co de Phone Number [facility] [address] * (ABNORMAL) POCT Glucose (09/20/2022 11:06 AM EDT) Glucose, POC 221(H) 65 - 199 mg/dL [facility] Comment: Supplemental ranges: <140 mg/dL before meals <180 mg/dL all other times of the day Blood 09/20/2022 11:0 6 AM EDT 09/20/2022 11:06 AM EDT Olamide Stallings MD POINT OF CARE TEST O RDERABLES [facility] [place] [address] * POCT Glucose (09/20/2022 5:39 AM EDT) Glucose, POC 187 65 - 199 mg/dL [facility] Comment: Supplemental ranges: <140 mg/dL before meals <180 mg/dL all other times of the day Blood 09/20/2022 5:39 AM EDT 09/20/2022 5:39 AM EDT Olamide Stallings MD POINT OF CARE TEST O RDERABLES Performing Organization Address [facility] Co de Phone Number [facility] [address] * (ABNORMAL) Differential, Automated (09/20/2022 5:06 AM EDT) [facility] Neutrophil % 43.5 % [facility] Neutrophil Absolute 2.83 1.70 - 6.10 x10(3)/mc L [facility] Lymph % 40.2 % [facility] Lymphocytes Abs 2.6 0.9 - 3.2 x10(3)/mc L [facility] Monocyte % 11.1 % [facility] Monocyte Abs 0.7 0.3 - 0.9 x10(3)/mc L [facility] Eos % 2.8 % [facility] Eosinophils Abs 0.2 0.0 - 0.4 x10(3)/mc L [facility] Basophil % 1.5 % [facility] Baso Absolute 0.1 0.0 - 0.1 x10(3)/mc L [facility] Immature Gran % 0.90 % [facility] Comment: Immature granulocytes(IG's)percentage and absolute count will include metamyelocytes, myelocytes, and promyelocytes. Blood smears from CBCs yielding IG's will be scanned manually for concordance. If this scan disagrees with the automated IG or if promyelocytes are noted, a manual differential will be performed. Immature Gran Absolute 0.06(H) 0.00 - 0.04 x10(3)/mc L [facility] Blood 09/20/2022 5:06 AM EDT 09/20/2022 5:29 AM EDT Narrative Resulting Agency Comment Spec In Lab Alan Hunt MD HEMATOLOGY ORDERABLE S Performing Organization Address City/[facility]/ZIP Co de Phone Number [facility] [address] * (ABNORMAL) Hemogram (09/20/2022 5:06 AM EDT) White Blood Cell 6.5 4.0 - 9.5 x10(3)/[facility] Red Blood Cell 4.68 4.00 - 5.21 x10(6)/[facility] Hemoglobin 11.1(L) 11.7 - 15.5 g/dL [facility] Hematocrit 36.8 35.7 - 45.8 % [facility] Mean Cell Volume 78.6(L) 82.6 - 94.4 fL [facility] Mean Cell Hemoglobin 23.7(L) 27.1 - 32.0 pg [facility] Mean Cell Hemoglobin Concentration 30.2(L) 31.7 - 35.0 g/dL [facility] Platelet 232 145 - 357 x10(3)/ L [facility] RDW Standard Deviation 78.3(H) 37.0 - 46.0 fL [facility] RDW coefficient of variation 29.0(H) 11.5 - 14.1 % [facility] Mean Platelet Volume Not Measured 7.6 - 12.9 fL [facility] NRBC% auto 0.0 % [facility] NRBC Absolute 0.000 0.000 - 0.000 x10(3)/mc L [facility] Blood 09/20/2022 5:06 AM EDT 09/20/2022 5:29 AM EDT Narrative Resulting Agency Comment Spec In Lab Alan Hunt MD HEMATOLOGY ORDERABLE S Performing Organization Address City/[facility]/ZIP Co de Phone Number [facility] [address] * (ABNORMAL) Basic Metabolic Panel (non-fasting) (09/20/2022 5:06 AM EDT) Glucose 206(H) 65 - 199 mg/dL [facility] Comment:Diabetes: >=200 mg/d L plus symptoms Blood Urea Nitrogen 23(H) 8 - 18 mg/dL [facility] Creatinine 0.50(L) 0.70 - 1.20 mg/dL [facility] Sodium 135 135 - 145 mmol/L [facility] Potassium 4.9 3.5 - 5.0 mmol/L [facility] Comment: Please note: ??Patients with WBC >100,000 may have falsely elevated Potassium levels. ??For accurate Potassium quantification in these patients send serum separator tube (gold top) for subsequent determinations. ??Contact the Clinical Chemistry Laboratory if there are any questions. Chloride 99 98 - 107 mmol/L [facility] Carbon Dioxide 26 22 - 31 mmol/L [facility] Anion Gap 10 5 - 15 mmol/L [facility] Calcium 9.6 8.5 - 10.5 mg/dL [facility] Est Glomerular Filtration Rate 106 >=60 mL/min/1. 73 m?? [facility] Comment: This patient's estimated GFR was [...] In Lab Richard Pascal MD CHEMISTRY ORDERABLES [facility] [place] [address] * Phosphorus (09/20/2022 5:06 AM EDT) Phosphorus 3.5 2.5 - 4.5 mg/dL [facility] Blood 09/20/2022 5:06 AM EDT 09/20/2022 5:29 AM EDT Narrative Resulting Agency Comment Spec In Lab Richard Pascal MD CHEMISTRY ORDERABLES Performing Organization Address [facility] Co de Phone Number [facility] [place] [address] * Magnesium (09/20/2022 5:06 AM EDT) Magnesium 0.83 0.69 - 1.07 mmol/L [facility] Blood 09/20/2022 5:06 AM EDT 09/20/2022 5:29 AM EDT Narrative Resulting Agency Comment Spec In Lab Richard Pascal MD CHEMISTRY ORDERABLES Performing Organization Address [facility] Co de Phone Number [facility] [place] [address] * (ABNORMAL) POCT Glucose (09/19/2022 10:53 PM EDT) Glucose, POC 209(H) 65 - 199 mg/dL [facility] Comment: Supplemental ranges: <140 mg/dL before meals <180 mg/dL all other times of the day Blood 09/19/2022 10:5 3 PM EDT 09/19/2022 10:53 PM EDT lOamide Stallings MD POINT OF CARE TEST O RDERABLES Performing Organization Address [facility] Co de Phone Number [facility] [place] [address] * (ABNORMAL) POCT Glucose (09/19/2022 8:51 PM EDT) Glucose, POC 329(H) 65 - 199 mg/dL [facility] Comment: Supplemental ranges: <140 mg/dL before meals <180 mg/dL all other times of the day Blood 09/19/2022 8:51 PM EDT 09/19/2022 8:51 PM EDT Olamide Stallings MD POINT OF CARE TEST O GABRIELLA [facility] [place] [address] * (ABNORMAL) POCT Glucose (09/19/2022 7:57 PM EDT) Glucose, POC 275(H) 65 - 199 mg/dL [facility] Comment: Supplemental ranges: <140 mg/dL before meals <180 mg/dL all other times of the day Blood 09/19/2022 7:57 PM EDT 09/19/2022 7:57 PM EDT Olamide Stallings MD POINT OF CARE TEST O GABRIELLA Performing Organization Address [facility] Co de Phone Number [facility] [place] [address] * (ABNORMAL) POCT Glucose (09/19/2022 4:02 PM EDT) Glucose, POC 221(H) 65 - 199 mg/dL [facility] Comment: Supplemental ranges: <140 mg/dL before meals <180 mg/dL all other times of the day Blood 09/19/2022 4:02 PM EDT 09/19/2022 4:02 PM EDT Olamide Stallings MD POINT OF CARE TEST O RDERAREYMUNDO Performing Organization Address City/[facility] Co de Phone Number [facility] [address] * POCT Glucose (09/19/2022 11:50 AM EDT) Glucose, POC 194 65 - 199 mg/dL [facility] Comment: Supplemental ranges: <140 mg/dL before meals <180 mg/dL all other times of the day Blood 09/19/2022 11:5 0 AM EDT 09/19/2022 11:50 AM EDT Olamide Stallings MD POINT OF CARE TEST O RDERABLES [facility] [place] [address] * (ABNORMAL) POCT Glucose (09/19/2022 6:45 AM EDT) Glucose, POC 219(H) 65 - 199 mg/dL [facility] Comment: Supplemental ranges: <140 mg/dL before meals <180 mg/dL all other times of the day Blood 09/19/2022 6:45 AM EDT 09/19/2022 6:45 AM EDT Alan Hunt MD POINT OF CARE TEST O GABRIELLA Performing Organization Address [facility] Co de Phone Number [facility] [address] * (ABNORMAL) Basic Metabolic Panel (non-fasting) (09/19/2022 4:39 AM EDT) Glucose 194 65 - 199 mg/dL [facility] Comment:Diabetes: >=200 mg/d L plus symptoms Blood Urea Nitrogen 21(H) 8 - 18 mg/dL [facility] Creatinine 0.52(L) 0.70 - 1.20 mg/dL [facility] Sodium 134(L) 135 - 145 mmol/L [facility] Potassium 4.6 3.5 - 5.0 mmol/L [facility] Comment: Please note: ??Patients with WBC >100,000 may have falsely elevated Potassium levels. ??For accurate Potassium quantification in these patients send serum separator tube (gold top) for subsequent determinations. ??Contact the Clinical Chemistry Laboratory if there are any questions. Chloride 98 98 - 107 mmol/L [facility] Carbon Dioxide 27 22 - 31 mmol/L [facility] Anion Gap 9 5 - 15 mmol/L [facility] Calcium 9.3 8.5 - 10.5 mg/dL [facility] Est Glomerular Filtration Rate 105 >=60 mL/min/1. 73 m?? [facility] Comment: This patient's [...] Pascal MD CHEMISTRY ORDERABLES Performing Organization Address City/[facility] Co de Phone Number [facility] [place] [address] * Phosphorus (09/19/2022 4:39 AM EDT) Phosphorus 3.3 2.5 - 4.5 mg/dL [facility] Blood 09/19/2022 4:39 AM EDT 09/19/2022 4:51 AM EDT Narrative Resulting Agency Comment Spec In Lab Richard Pascal MD CHEMISTRY ORDERABLES Performing Organization Address [facility] Co de Phone Number [facility] [address] * Magnesium (09/19/2022 4:39 AM EDT) Magnesium 0.82 0.69 - 1.07 mmol/L [facility] Blood 09/19/2022 4:39 AM EDT 09/19/2022 4:51 AM EDT Narrative Resulting Agency Comment Spec In Lab Richard Pascal MD CHEMISTRY ORDERABLES Performing Organization Address [facility] Co de Phone Number [facility] [place] [address] * POCT Glucose (09/19/2022 3:49 AM EDT) Glucose, POC 184 65 - 199 mg/dL [facility] Comment: Supplemental ranges: <140 mg/dL before meals <180 mg/dL all other times of the day Blood 09/19/2022 3:49 AM EDT 09/19/2022 3:49 AM EDT Alan Hunt MD POINT OF CARE TEST O RDERABLES Performing Organization Address City/[facility] Co de Phone Number [facility] [place] [address] * POCT Glucose (09/18/2022 11:54 PM EDT) Glucose, POC 175 65 - 199 mg/dL [facility] Comment: Supplemental ranges: <140 mg/dL before meals <180 mg/dL all other times of the day Blood 09/18/2022 11:5 4 PM EDT 09/18/2022 11:54 PM EDT Alan Hunt MD POINT OF CARE TEST O RDERABLES Performing Organization Address [facility] Co de Phone Number [facility] [place] [address] * (ABNORMAL) POCT Glucose (09/18/2022 9:07 PM EDT) Glucose, POC 242(H) 65 - 199 mg/dL [facility] Comment: Supplemental ranges: <140 mg/dL before meals <180 mg/dL all other times of the day Blood 09/18/2022 9:07 PM EDT 09/18/2022 9:07 PM EDT Alan Hunt MD POINT OF CARE TEST O RDERABLES Performing Organization Address City/[facility] Co de Phone Number [facility] [place] [address] * POCT Glucose (09/18/2022 4:32 PM EDT) Glucose, POC 175 65 - 199 mg/dL [facility] Comment: Supplemental ranges: <140 mg/dL before meals <180 mg/dL all other times of the day Blood 09/18/2022 4:32 PM EDT 09/18/2022 4:32 PM EDT Alan Hunt MD POINT OF CARE TEST O RDERABLES [facility] [place] [address] * POCT Glucose (09/18/2022 2:14 PM EDT) Glucose, POC 188 65 - 199 mg/dL [facility] Comment: Supplemental ranges: <140 mg/dL before meals <180 mg/dL all other times of the day Blood 09/18/2022 2:14 PM EDT 09/18/2022 2:14 PM EDT Alan Hunt MD POINT OF CARE TEST O RDERAREYMUNDO Performing Organization Address City/[facility]/ZIP Co de Phone Number [facility] [place] [address] * (ABNORMAL) POCT Glucose (09/18/2022 11:45 AM EDT) Glucose, POC 247(H) 65 - 199 mg/dL [facility] Comment: Supplemental ranges: <140 mg/dL before meals <180 mg/dL all other times of the day Blood 09/18/2022 11:4 5 AM EDT 09/18/2022 11:45 AM EDT Alan Hunt MD POINT OF CARE TEST O RDERABLES [facility] [place] [address] * POCT Glucose (09/18/2022 6:47 AM EDT) Glucose, POC 197 65 - 199 mg/dL [facility] Comment: Supplemental ranges: <140 mg/dL before meals <180 mg/dL all other times of the day Blood 09/18/2022 6:47 AM EDT 09/18/2022 6:47 AM EDT Alan Hunt MD POINT OF CARE TEST O RDERABLES [facility] [place] [address] * (ABNORMAL) Basic Metabolic Panel (non-fasting) (09/18/2022 4:53 AM EDT) Glucose 197 65 - 199 mg/dL [facility] Comment:Diabetes: >=200 mg/d L plus symptoms Blood Urea Nitrogen 18 8 - 18 mg/dL [facility] Creatinine 0.53(L) 0.70 - 1.20 mg/dL [facility] Sodium 136 135 - 145 mmol/L [facility] Potassium 4.5 3.5 - 5.0 mmol/L [facility] Comment: Please note: ??Patients with WBC >100,000 may have falsely elevated Potassium levels. ??For accurate Potassium quantification in these patients send serum separator tube (gold top) for subsequent determinations. ??Contact the Clinical Chemistry Laboratory if there are any questions. Chloride 100 98 - 107 mmol/L [facility] Carbon Dioxide 27 22 - 31 mmol/L [facility] Anion Gap 9 5 - 15 mmol/L [facility] Calcium 9.5 8.5 - 10.5 mg/dL [facility] Est Glomerular Filtration Rate 105 >=60 mL/min/1. 73 m?? [facility] Comment: This patient's estimated GFR was [...] In Lab Richard Pascal MD CHEMISTRY ORDERABLES [facility] [place] [address] * Phosphorus (09/18/2022 4:53 AM EDT) Phosphorus 3.2 2.5 - 4.5 mg/dL [facility] Blood 09/18/2022 4:53 AM EDT 09/18/2022 5:46 AM EDT Narrative Resulting Agency Comment Spec In Lab Richard Pascal MD CHEMISTRY ORDERABLES Performing Organization Address [facility] Co de Phone Number [facility] [place] [address] * Magnesium (09/18/2022 4:53 AM EDT) Magnesium 0.79 0.69 - 1.07 mmol/L [facility] Blood 09/18/2022 4:53 AM EDT 09/18/2022 5:46 AM EDT Narrative Resulting Agency Comment Spec In Lab Richard Pascal MD CHEMISTRY ORDERABLES Performing Organization Address [facility] Co de Phone Number [facility] [place] [address] * POCT Glucose (09/18/2022 4:06 AM EDT) Glucose, POC 159 65 - 199 mg/dL [facility] Comment: Supplemental ranges: <140 mg/dL before meals <180 mg/dL all other times of the day Blood 09/18/2022 4:06 AM EDT 09/18/2022 4:06 AM EDT Alan Hunt MD POINT OF CARE TEST O RDERABLES Performing Organization Address City/[facility]/ZIP Co de Phone Number [facility] [place] [address] * POCT Glucose (09/17/2022 11:02 PM EDT) Glucose, POC 141 65 - 199 mg/dL [facility] Comment: Supplemental ranges: <140 mg/dL before meals <180 mg/dL all other times of the day Blood 09/17/2022 11:0 2 PM EDT 09/17/2022 11:02 PM EDT Alan Hunt MD POINT OF CARE TEST O GABRIELLA [facility] [place] [address] * (ABNORMAL) POCT Glucose (09/17/2022 9:14 PM EDT) Glucose, POC 201(H) 65 - 199 mg/dL [facility] Comment: Supplemental ranges: <140 mg/dL before meals <180 mg/dL all other times of the day Blood 09/17/2022 9:14 PM EDT 09/17/2022 9:14 PM EDT Alan Hunt MD POINT OF CARE TEST O HUGHERAREYMUNDO [facility] [place] [address] * POCT Glucose (09/17/2022 4:14 PM EDT) Glucose, POC 173 65 - 199 mg/dL [facility] Comment: Supplemental ranges: <140 mg/dL before meals <180 mg/dL all other times of the day Blood 09/17/2022 4:14 PM EDT 09/17/2022 4:14 PM EDT Alan Hunt MD POINT OF CARE TEST O RDERAREYMUNDO [facility] [place] [address] * POCT Glucose (09/17/2022 11:34 AM EDT) Glucose, POC 181 65 - 199 mg/dL [facility] Comment: Supplemental ranges: <140 mg/dL before meals <180 mg/dL all other times of the day Blood 09/17/2022 11:3 4 AM EDT 09/17/2022 11:34 AM EDT Alan Hunt MD POINT OF CARE TEST O RDERABLES [facility] [place] [address] * POCT Glucose (09/17/2022 6:57 AM EDT) Glucose, POC 146 65 - 199 mg/dL [facility] Comment: Supplemental ranges: <140 mg/dL before meals <180 mg/dL all other times of the day Blood 09/17/2022 6:57 AM EDT 09/17/2022 6:57 AM EDT Alan Hunt MD POINT OF CARE TEST O RDERAREYMUNDO Performing Organization Address [facility]/ZIP Co de Phone Number [facility] [place] [address] * POCT Glucose (09/17/2022 3:07 AM EDT) Glucose, POC 149 65 - 199 mg/dL [facility] Comment: Supplemental ranges: <140 mg/dL before meals <180 mg/dL all other times of the day Blood 09/17/2022 3:07 AM EDT 09/17/2022 3:07 AM EDT Alan Hunt MD POINT OF CARE TEST O RDERABLES [facility] [place] [address] * POCT Glucose (09/17/2022 12:59 AM EDT) Glucose, POC 174 65 - 199 mg/dL [facility] Comment: Supplemental ranges: <140 mg/dL before meals <180 mg/dL all other times of the day Blood 09/17/2022 12:5 9 AM EDT 09/17/2022 12:59 AM EDT Alan Hunt MD POINT OF CARE TEST O RDERABLES Performing Organization Address City/[facility] Co de Phone Number [facility] [place] [address] * POCT Glucose (09/16/2022 8:03 PM EDT) Glucose, POC 139 65 - 199 mg/dL [facility] Comment: Supplemental ranges: <140 mg/dL before meals <180 mg/dL all other times of the day Blood 09/16/2022 8:03 PM EDT 09/16/2022 8:03 PM EDT Alan Hunt MD POINT OF CARE TEST O RDERABLES Performing Organization Address [facility] Co de Phone Number [facility] [place] [address] * POCT Glucose (09/16/2022 4:22 PM EDT) Glucose, POC 155 65 - 199 mg/dL [facility] Comment: Supplemental ranges: <140 mg/dL before meals <180 mg/dL all other times of the day Blood 09/16/2022 4:22 PM EDT 09/16/2022 4:22 PM EDT Alan Hunt MD POINT OF CARE TEST O RDERABLES Performing Organization Address City/[facility] Co de Phone Number [facility] [place] [address] * POCT Glucose (09/16/2022 11:21 AM EDT) Glucose, POC 170 65 - 199 mg/dL [facility] Comment: Supplemental ranges: <140 mg/dL before meals <180 mg/dL all other times of the day Blood 09/16/2022 11:2 1 AM EDT 09/16/2022 11:21 AM EDT Alan Hunt MD POINT OF CARE TEST O RDERABLES Performing Organization Address City/[facility]/ZIP Co de Phone Number [facility] [place] [address] * POCT Glucose (09/16/2022 6:33 AM EDT) Glucose, POC 111 65 - 199 mg/dL [facility] Comment: Supplemental ranges: <140 mg/dL before meals <180 mg/dL all other times of the day Blood 09/16/2022 6:33 AM EDT 09/16/2022 6:33 AM EDT Balaji Mayer MD POINT OF CARE TEST O RDERABLES Performing Organization Address [facility] Co de Phone Number [facility] [place] [address] * (ABNORMAL) Differential, Automated (09/16/2022 3:08 AM EDT) [facility] Neutrophil % 54.3 % [facility] Neutrophil Absolute 3.63 1.70 - 6.10 x10(3)/mc L [facility] Lymph % 28.2 % [facility] Lymphocytes Abs 1.9 0.9 - 3.2 x10(3)/mc L [facility] Monocyte % 12.4 % [facility] Monocyte Abs 0.8 0.3 - 0.9 x10(3)/mc L [facility] Eos % 2.8 % [facility] Eosinophils Abs 0.2 0.0 - 0.4 x10(3)/mc L [facility] Basophil % 1.3 % [facility] Baso Absolute 0.1 0.0 - 0.1 x10(3)/mc L [facility] Immature Gran % 1.00 % [facility] Comment: Immature granulocytes(IG's)percentage and absolute count will include metamyelocytes, myelocytes, and promyelocytes. Blood smears from CBCs yielding IG's will be scanned manually for concordance. If this scan disagrees with the automated IG or if promyelocytes are noted, a manual differential will be performed. Immature Gran Absolute 0.07(H) 0.00 - 0.04 x10(3)/mc L [facility] Blood 09/16/2022 3:08 AM EDT 09/16/2022 3:12 AM EDT Narrative Resulting Agency Comment Spec In Lab Jigar Streeter MD HEMATOLOGY ORDERABLE S Performing Organization Address City/[facility]/ZIP Co de Phone Number [facility] [place] [address] * (ABNORMAL) Hemogram (09/16/2022 3:08 AM EDT) White Blood Cell 6.7 4.0 - 9.5 x10(3)/[facility] Red Blood Cell 4.64 4.00 - 5.21 x10(6)/[facility] Hemoglobin 10.7(L) 11.7 - 15.5 g/dL [facility] Hematocrit 35.6(L) 35.7 - 45.8 % [facility] Mean Cell Volume 76.7(L) 82.6 - 94.4 fL [facility] Mean Cell Hemoglobin 23.1(L) 27.1 - 32.0 pg [facility] Mean Cell Hemoglobin Concentration 30.1(L) 31.7 - 35.0 g/dL [facility] Platelet 242 145 - 357 x10(3)/ L [facility] RDW Standard Deviation 74.3(H) 37.0 - 46.0 fL [facility] RDW coefficient of variation 28.6(H) 11.5 - 14.1 % [facility] Mean Platelet Volume 9.8 7.6 - 12.9 fL [facility] NRBC% auto 0.0 % [facility] NRBC Absolute 0.000 0.000 - 0.000 x10(3)/ L [facility] Blood 09/16/2022 3:08 AM EDT 09/16/2022 3:12 AM EDT Narrative Resulting Agency Comment Spec In Lab Jigar Streeter MD HEMATOLOGY ORDERABLE S Performing Organization Address City/[facility]/ZIP Co de Phone Number [facility] [address] * Phosphorus (09/16/2022 3:08 AM EDT) Phosphorus 3.0 2.5 - 4.5 mg/dL [facility] Blood 09/16/2022 3:08 AM EDT 09/16/2022 3:12 AM EDT Narrative Resulting Agency Comment Spec In Lab Richard Pascal MD CHEMISTRY ORDERABLES Performing Organization Address City/[facility]/ZIP Co de Phone Number [facility] [place] [address] * Magnesium (09/16/2022 3:08 AM EDT) Magnesium 0.80 0.69 - 1.07 mmol/L [facility] Blood 09/16/2022 3:08 AM EDT 09/16/2022 3:12 AM EDT Narrative Resulting Agency Comment Spec In Lab Richard Pascal MD CHEMISTRY ORDERABLES Performing Organization Address [facility] Co de Phone Number [facility] [address] * (ABNORMAL) Basic Metabolic Panel (non-fasting) (09/16/2022 3:08 AM EDT) Glucose 161 65 - 199 mg/dL [facility] Comment:Diabetes: >=200 mg/d L plus symptoms Blood Urea Nitrogen 15 8 - 18 mg/dL [facility] Creatinine 0.47(L) 0.70 - 1.20 mg/dL [facility] Sodium 140 135 - 145 mmol/L [facility] Potassium 4.0 3.5 - 5.0 mmol/L [facility] Comment: Please note: ??Patients with WBC >100,000 may have falsely elevated Potassium levels. ??For accurate Potassium quantification in these patients send serum separator tube (gold top) for subsequent determinations. ??Contact the Clinical Chemistry Laboratory if there are any questions. Chloride 103 98 - 107 mmol/L [facility] Carbon Dioxide 29 22 - 31 mmol/L [facility] Anion Gap 8 5 - 15 mmol/L [facility] Calcium 9.4 8.5 - 10.5 mg/dL [facility] Est Glomerular Filtration Rate 108 >=60 mL/min/1. 73 m?? [facility] Comment: This patient's estimated GFR was [...] Pascal MD CHEMISTRY ORDERABLES Performing Organization Address [facility] Co de Phone Number [facility] [place] [address] * POCT Glucose (09/16/2022 2:59 AM EDT) Glucose, POC 157 65 - 199 mg/dL [facility] Comment: Supplemental ranges: <140 mg/dL before meals <180 mg/dL all other times of the day Blood 09/16/2022 2:59 AM EDT 09/16/2022 2:59 AM EDT Balaji Mayer MD POINT OF CARE TEST O RDERABLES [facility] [place] [address] * POCT Glucose (09/15/2022 11:15 PM EDT) Glucose, POC 169 65 - 199 mg/dL [facility] Comment: Supplemental ranges: <140 mg/dL before meals <180 mg/dL all other times of the day Blood 09/15/2022 11:1 5 PM EDT 09/15/2022 11:15 PM EDT Balaji Mayer MD POINT OF CARE TEST O RDERABLES Performing Organization Address City/[facility] Co de Phone Number [facility] [place] [address] * POCT Glucose (09/15/2022 7:17 PM EDT) Glucose, POC 153 65 - 199 mg/dL [facility] Comment: Supplemental ranges: <140 mg/dL before meals <180 mg/dL all other times of the day Blood 09/15/2022 7:17 PM EDT 09/15/2022 7:17 PM EDT Balaji Mayer MD POINT OF CARE TEST O RDERABLES Performing Organization Address [facility] Co de Phone Number [facility] [place] [address] * POCT Glucose (09/15/2022 3:46 PM EDT) Glucose, POC 136 65 - 199 mg/dL [facility] Comment: Supplemental ranges: <140 mg/dL before meals <180 mg/dL all other times of the day Blood 09/15/2022 3:46 PM EDT 09/15/2022 3:46 PM EDT Balaji Mayer MD POINT OF CARE TEST O RDERABLES Performing Organization Address [facility] Co de Phone Number [facility] [place] [address] * POCT Glucose (09/15/2022 11:15 AM EDT) Glucose, POC 133 65 - 199 mg/dL [facility] Comment: Supplemental ranges: <140 mg/dL before meals <180 mg/dL all other times of the day Blood 09/15/2022 11:1 5 AM EDT 09/15/2022 11:15 AM EDT Balaji Mayer MD POINT [place] [address] * POCT Glucose (09/15/2022 6:30 AM EDT) Glucose, POC 95 65 - 199 mg/dL [facility] Comment: Supplemental ranges: <140 mg/dL before meals <180 mg/dL all other times of the day Blood 09/15/2022 6:30 AM EDT 09/15/2022 6:30 AM EDT Balaji Mayer MD POINT [place] [address] * (ABNORMAL) Differential, Automated (09/15/2022 3:00 AM EDT) [facility] Neutrophil % 46.9 % [facility] Neutrophil Absolute 2.78 1.70 - 6.10 x10(3)/mc L [facility] Lymph % 34.9 % [facility] Lymphocytes Abs 2.1 0.9 - 3.2 x10(3)/mc L [facility] Monocyte % 12.1 % [facility] Monocyte Abs 0.7 0.3 - 0.9 x10(3)/mc L [facility] Eos % 3.7 % [facility] Eosinophils Abs 0.2 0.0 - 0.4 x10(3)/mc L [facility] Basophil % 1.2 % [facility] Baso Absolute 0.1 0.0 - 0.1 x10(3)/mc L [facility] Immature Gran % 1.20 % [facility] Comment: Immature granulocytes(IG's)percentage and absolute count will include metamyelocytes, myelocytes, and promyelocytes. Blood smears from CBCs yielding IG's will be scanned manually for concordance. If this scan disagrees with the automated IG or if promyelocytes are noted, a manual differential will be performed. Immature Gran Absolute 0.07(H) 0.00 - 0.04 x10(3)/mc L [facility] Blood 09/15/2022 3:00 AM EDT 09/15/2022 3:07 AM EDT Narrative Resulting Agency Comment Spec In Lab Jigar Streeter MD HEMATOLOGY ORDERABLE S [facility] [place] [address] * (ABNORMAL) Hemogram (09/15/2022 3:00 AM EDT) White Blood Cell 5.9 4.0 - 9.5 x10(3)/mc L [facility] Red Blood Cell 4.43 4.00 - 5.21 x10(6)/mc L [facility] Hemoglobin 10.2(L) 11.7 - 15.5 g/dL [facility] Hematocrit 34.4(L) 35.7 - 45.8 % [facility] Mean Cell Volume 77.7(L) 82.6 - 94.4 fL [facility] Mean Cell Hemoglobin 23.0(L) 27.1 - 32.0 pg [facility] Mean Cell Hemoglobin Concentration 29.7(L) 31.7 - 35.0 g/dL [facility] Platelet 252 145 - 357 x10(3)/mc L [facility] RDW Standard Deviation 76.5(H) 37.0 - 46.0 fL [facility] RDW coefficient of variation 29.1(H) 11.5 - 14.1 % [facility] Mean Platelet Volume 9.7 7.6 - 12.9 fL [facility] NRBC% auto 0.0 % [facility] NRBC Absolute 0.000 0.000 - 0.000 x10(3)/mc L [facility] Blood 09/15/2022 3:00 AM EDT 09/15/2022 3:07 AM EDT Narrative Resulting Agency Comment Spec In Lab Jigar Streeter MD HEMATOLOGY ORDERABLE S Performing Organization Address City/[facility]/ZIP Co de Phone Number [facility] [place] [address] * Phosphorus (09/15/2022 3:00 AM EDT) Phosphorus 2.6 2.5 - 4.5 mg/dL [facility] Blood 09/15/2022 3:00 AM EDT 09/15/2022 3:07 AM EDT Narrative Resulting Agency Comment Spec In Lab Richard Pascal MD CHEMISTRY ORDERABLES Performing Organization Address [facility] Co de Phone Number [facility] [place] [address] * Magnesium (09/15/2022 3:00 AM EDT) Magnesium 0.77 0.69 - 1.07 mmol/L [facility] Blood 09/15/2022 3:00 AM EDT 09/15/2022 3:07 AM EDT Narrative Resulting Agency Comment Spec In Lab Richard Pascal MD CHEMISTRY ORDERABLES Performing Organization Address [facility] de Phone Number [facility] [place] [address] * (ABNORMAL) Basic Metabolic Panel (non-fasting) (09/15/2022 3:00 AM EDT) Glucose 121 65 - 199 mg/dL [facility] Comment:Diabetes: >=200 mg/d L plus symptoms Blood Urea Nitrogen 11 8 - 18 mg/dL [facility] Creatinine 0.44(L) 0.70 - 1.20 mg/dL [facility] Sodium 140 135 - 145 mmol/L [facility] Potassium 4.0 3.5 - 5.0 mmol/L [facility] Comment: Please note: ??Patients with WBC >100,000 may have falsely elevated Potassium levels. ??For accurate Potassium quantification in these patients send serum separator tube (gold top) for subsequent determinations. ??Contact the Clinical Chemistry Laboratory if there are any questions. Chloride 102 98 - 107 mmol/L [facility] Carbon Dioxide 27 22 - 31 mmol/L [facility] Anion Gap 11 5 - 15 mmol/L [facility] Calcium 9.2 8.5 - 10.5 mg/dL [facility] Est Glomerular Filtration Rate 109 >=60 mL/min/1. 73 m?? [facility] Comment: This patient's [...] Pascal MD CHEMISTRY ORDERABLES Performing Organization Address [facility] Co de Phone Number [facility] [place] [address] * POCT Glucose (09/15/2022 2:58 AM EDT) Glucose, POC 114 65 - 199 mg/dL [facility] Comment: Supplemental ranges: <140 mg/dL before meals <180 mg/dL all other times of the day Blood 09/15/2022 2:58 AM EDT 09/15/2022 2:58 AM EDT Balaji Mayer MD POINT OF CARE TEST O GABRIELLA Performing Organization Address City/[facility] Co de Phone Number [facility] [place] [address] * POCT Glucose (09/14/2022 11:29 PM EDT) Glucose, POC 124 65 - 199 mg/dL [facility] Comment: Supplemental ranges: <140 mg/dL before meals <180 mg/dL all other times of the day Blood 09/14/2022 11:2 9 PM EDT 09/14/2022 11:29 PM EDT Balaji Mayer MD POINT OF CARE TEST O RDERABLES [facility] [place] [address] * XR Hip 2-3 Views Left (09/14/2022 [...] who have questions please contact the health coronary care unit nurse that requested your imaging [...] patients who have questions please contactthe health coronary care unit nurse that requested your imaging first. Balaji Mayer MD IMG DX ORDERABLES * POCT Glucose (09/14/2022 7:22 PM EDT) Glucose, POC 120 65 - 199 mg/dL [facility] Comment: Supplemental ranges: <140 mg/dL before meals <180 mg/dL all other times of the day Blood 09/14/2022 7:22 PM EDT 09/14/2022 7:22 PM EDT Balaji Mayer MD POINT OF CARE TEST O RDERABLES [facility] [place] [address] * POCT Glucose (09/14/2022 3:38 PM EDT) Glucose, POC 132 65 - 199 mg/dL [facility] Comment: Supplemental ranges: <140 mg/dL before meals <180 mg/dL all other times of the day Blood 09/14/2022 3:38 PM EDT 09/14/2022 3:38 PM EDT Balaji Mayer MD POINT OF CARE TEST O RDERABLES Performing Organization Address City/[facility] Co de Phone Number [facility] [place] [address] * POCT Glucose (09/14/2022 11:01 AM EDT) Glucose, POC 128 65 - 199 mg/dL [facility] Comment: Supplemental ranges: <140 mg/dL before meals <180 mg/dL all other times of the day Blood 09/14/2022 11:0 1 AM EDT 09/14/2022 11:01 AM EDT Balaji Mayer MD POINT OF CARE TEST O RDERAREYMUNDO Performing Organization Address [facility] Co de Phone Number [facility] [place] [address] * POCT Glucose (09/14/2022 6:33 AM EDT) Glucose, POC 94 65 - 199 mg/dL [facility] Comment: Supplemental ranges: <140 mg/dL before meals <180 mg/dL all other times of the day Blood 09/14/2022 6:33 AM EDT 09/14/2022 6:33 AM EDT Chong Chao MD POINT OF CARE TEST O RDERABLES Performing Organization Address City/[facility] Co de Phone Number [facility] [place] [address] * (ABNORMAL) Differential, Automated (09/14/2022 3:33 AM EDT) Neutrophil % 49.0 % [facility] Neutrophil Absolute 2.69 1.70 - 6.10 x10(3)/mc L [facility] Lymph % 32.4 % [facility] Lymphocytes Abs 1.8 0.9 - 3.2 x10(3)/mc L [facility] Monocyte % 12.4 % [facility] Monocyte Abs 0.7 0.3 - 0.9 x10(3)/[facility] Eos % 4.2 % [facility] Eosinophils Abs 0.2 0.0 - 0.4 x10(3)/[facility] Basophil % 1.1 % [facility] Baso Absolute 0.1 0.0 - 0.1 x10(3)/[facility] Immature Gran % 0.90 % [facility] Comment: Immature granulocytes(IG's)percentage and absolute count will include metamyelocytes, myelocytes, and promyelocytes. Blood smears from CBCs yielding IG's will be scanned manually for concordance. If this scan disagrees with the automated IG or if promyelocytes are noted, a manual differential will be performed. Immature Gran Absolute 0.05(H) 0.00 - 0.04 x10(3)/[facility] Blood 09/14/2022 3:33 AM EDT 09/14/2022 5:07 AM EDT Narrative Resulting Agency Comment Spec In Lab Jigar Streeter MD HEMATOLOGY ORDERABLE S [facility] [address] * (ABNORMAL) Hemogram (09/14/2022 3:33 AM EDT) White Blood Cell 5.5 4.0 - 9.5 x10(3)/ L [facility] Red Blood Cell 4.39 4.00 - 5.21 x10(6)/[facility] Hemoglobin 10.1(L) 11.7 - 15.5 g/dL [facility] Hematocrit 33.7(L) 35.7 - 45.8 % [facility] Mean Cell Volume 76.8(L) 82.6 - 94.4 fL [facility] Mean Cell Hemoglobin 23.0(L) 27.1 - 32.0 pg [facility] Mean Cell Hemoglobin Concentration 30.0(L) 31.7 - 35.0 g/dL [facility] Platelet 246 145 - 357 x10(3)/mc L [facility] RDW Standard Deviation 76.3(H) 37.0 - 46.0 fL [facility] RDW coefficient of variation 29.2(H) 11.5 - 14.1 % [facility] Mean Platelet Volume 10.2 7.6 - 12.9 fL [facility] NRBC% auto 0.0 % [facility] NRBC Absolute 0.000 0.000 - 0.000 x10(3)/mc L [facility] Blood 09/14/2022 3:33 AM EDT 09/14/2022 5:07 AM EDT Narrative Resulting Agency Comment Spec In Lab Jigar Streeter MD HEMATOLOGY ORDERABLE S Performing Organization Address [facility] Co de Phone Number [facility] [address] * Phosphorus (09/14/2022 3:33 AM EDT) Phosphorus 2.9 2.5 - 4.5 mg/dL [facility] Blood 09/14/2022 3:33 AM EDT 09/14/2022 5:07 AM EDT Narrative Resulting Agency Comment Spec In Lab Richard Pascal MD CHEMISTRY ORDERABLES Performing Organization Address [facility] Co de Phone Number [facility] [address] * Magnesium (09/14/2022 3:33 AM EDT) Magnesium 0.74 0.69 - 1.07 mmol/L [facility] Blood 09/14/2022 3:33 AM EDT 09/14/2022 5:07 AM EDT Narrative Resulting Agency Comment Spec In Lab Richard Pascal MD CHEMISTRY ORDERABLES Performing Organization Address [facility] Co de Phone Number [facility] [address] * (ABNORMAL) Basic Metabolic Panel (non-fasting) (09/14/2022 3:33 AM EDT) Glucose Not Perf 65 - 199 [facility] Comment: Sample improperly processed prior to receipt. Diabetes: >=200 mg/dL plus symptoms Blood Urea Nitrogen 10 8 - 18 mg/dL [facility] Creatinine 0.45(L) 0.70 - 1.20 mg/dL [facility] Sodium 140 135 - 145 mmol/L [facility] Potassium 4.1 3.5 - 5.0 mmol/L [facility] Comment: Please note: ??Patients with WBC >100,000 may have falsely elevated Potassium levels. ??For accurate Potassium quantification in these patients send serum separator tube (gold top) for subsequent determinations. ??Contact the Clinical Chemistry Laboratory if there are any questions. Chloride 102 98 - 107 mmol/L [facility] Carbon Dioxide 28 22 - 31 mmol/L [facility] Anion Gap 10 5 - 15 mmol/L [facility] Calcium 9.1 8.5 - 10.5 mg/dL [facility] Est Glomerular Filtration Rate 109 >=60 mL/min/1. 73 m?? [facility] Comment: This patient's estimated GFR was [...] In Lab Richard Pascal MD CHEMISTRY ORDERABLES [facility] [place] [address] * POCT Glucose (09/14/2022 3:29 AM EDT) Glucose, POC 109 65 - 199 mg/dL [facility] Comment: Supplemental ranges: <140 mg/dL before meals <180 mg/dL all other times of the day Blood 09/14/2022 3:29 AM EDT 09/14/2022 3:29 AM EDT Chong Chao MD POINT OF CARE TEST O RDAV Performing Organization Address City/[facility] Co de Phone Number [facility] [address] * POCT Glucose (09/13/2022 11:30 PM EDT) Glucose, POC 147 65 - 199 mg/dL [facility] Comment: Supplemental ranges: <140 mg/dL before meals <180 mg/dL all other times of the day Blood 09/13/2022 11:3 0 PM EDT 09/13/2022 11:30 PM EDT Chong Chao MD POINT OF CARE TEST O GABRIELLA Performing Organization Address [facility] Co de Phone Number [facility] [address] * POCT Glucose (09/13/2022 7:24 PM EDT) Glucose, POC 149 65 - 199 mg/dL [facility] Comment: Supplemental ranges: <140 mg/dL before meals <180 mg/dL all other times of the day Blood 09/13/2022 7:24 PM EDT 09/13/2022 7:24 PM EDT Chong Chao MD POINT OF CARE TEST O RDERABLES Performing Organization Address City/[facility] Co de Phone Number [facility] [address] * POCT Glucose (09/13/2022 3:40 PM EDT) Glucose, POC 126 65 - 199 mg/dL [facility] Comment: Supplemental ranges: <140 mg/dL before meals <180 mg/dL all other times of the day Blood 09/13/2022 3:40 PM EDT 09/13/2022 3:40 PM EDT Chong Chao MD POINT OF CARE TEST O RDERABLES [facility] [address] * (ABNORMAL) Basic Metabolic Panel (non-fasting) (09/13/2022 12:38 PM EDT) Glucose 115 65 - 199 mg/dL [facility] Comment:Diabetes: >=200 mg/d L plus symptoms Blood Urea Nitrogen 8 8 - 18 mg/dL [facility] Creatinine 0.50(L) 0.70 - 1.20 mg/dL [facility] Sodium 140 135 - 145 mmol/L [facility] Potassium 3.8 3.5 - 5.0 mmol/L [facility] Comment: Please note: ??Patients with WBC >100,000 may have falsely elevated Potassium levels. ??For accurate Potassium quantification in these patients send serum separator tube (gold top) for subsequent determinations. ??Contact the Clinical Chemistry Laboratory if there are any questions. Chloride 101 98 - 107 mmol/L [facility] Carbon Dioxide 26 22 - 31 mmol/L [facility] Anion Gap 13 5 - 15 mmol/L [facility] Calcium 9.1 8.5 - 10.5 mg/dL [facility] Est Glomerular Filtration Rate 106 >=60 mL/min/1. 73 m?? [facility] Comment: This patient's estimated GFR was [...] Pascal MD CHEMISTRY ORDERABLES Performing Organization Address [facility] Co de Phone Number [facility] [address] * POCT Glucose (09/13/2022 12:08 PM EDT) Glucose, POC 113 65 - 199 mg/dL [facility] Comment: Supplemental ranges: <140 mg/dL before meals <180 mg/dL all other times of the day Blood 09/13/2022 12:0 8 PM EDT 09/13/2022 12:08 PM EDT Chong Chao MD POINT OF CARE TEST O RDERABLES Performing Organization Address [facility] de Phone Number [facility] [address] * POCT Glucose (09/13/2022 6:31 AM EDT) Glucose, POC 87 65 - 199 mg/dL [facility] Comment: Supplemental ranges: <140 mg/dL before meals <180 mg/dL all other times of the day Blood 09/13/2022 6:31 AM EDT 09/13/2022 6:31 AM EDT Chong Chao MD POINT OF CARE TEST O RDERABLES Performing Organization Address [facility] de Phone Number [facility] [address] * POCT Glucose (09/13/2022 3:16 AM EDT) Glucose, POC 90 65 - 199 mg/dL [facility] Comment: Supplemental ranges: <140 mg/dL before meals <180 mg/dL all other times of the day Blood 09/13/2022 3:16 AM EDT 09/13/2022 3:16 AM EDT Chong Chao MD POINT OF CARE TEST O RDERABLES Performing Organization Address City/[facility] [place] [address] * (ABNORMAL) Differential, Automated (09/13/2022 3:15 AM EDT) Neutrophil % 44.0 % [facility] Neutrophil Absolute 2.31 1.70 - 6.10 x10(3)/ L [facility] Lymph % 39.0 % [facility] Lymphocytes Abs 2.0 0.9 - 3.2 x10(3)/ L [facility] Monocyte % 10.7 % [facility] Monocyte Abs 0.6 0.3 - 0.9 x10(3)/[facility] Eos % 3.8 % [facility] Eosinophils Abs 0.2 0.0 - 0.4 x10(3)/[facility] Basophil % 1.5 % [facility] Baso Absolute 0.1 0.0 - 0.1 x10(3)/[facility] Immature Gran % 1.00 % [facility] Comment: Immature granulocytes(IG's)percentage and absolute count will include metamyelocytes, myelocytes, and promyelocytes. Blood smears from CBCs yielding IG's will be scanned manually for concordance. If this scan disagrees with the automated IG or if promyelocytes are noted, a manual differential will be performed. Immature Gran Absolute 0.05(H) 0.00 - 0.04 x10(3)/ L [facility] Blood 09/13/2022 3:15 AM EDT 09/13/2022 3:27 AM EDT Narrative Resulting Agency Comment Spec In Lab Jigar Streeter [place] [address] * (ABNORMAL) Hemogram (09/13/2022 3:15 AM EDT) White Blood Cell 5.2 4.0 - 9.5 x10(3)/ L [facility] Red Blood Cell 3.99(L) 4.00 - 5.21 x10(6)/mc L [facility] Hemoglobin 9.2(L) 11.7 - 15.5 g/dL [facility] Hematocrit 30.9(L) 35.7 - 45.8 % [facility] Mean Cell Volume 77.4(L) 82.6 - 94.4 fL [facility] Mean Cell Hemoglobin 23.1(L) 27.1 - 32.0 pg [facility] Mean Cell Hemoglobin Concentration 29.8(L) 31.7 - 35.0 g/dL [facility] Platelet 239 145 - 357 x10(3)/mc L [facility] RDW Standard Deviation 78.1(H) 37.0 - 46.0 fL [facility] RDW coefficient of variation 29.6(H) 11.5 - 14.1 % [facility] Mean Platelet Volume 9.8 7.6 - 12.9 fL [facility] NRBC% auto 0.0 % [facility] NRBC Absolute 0.000 0.000 - 0.000 x10(3)/mc L [facility] Blood 09/13/2022 3:15 AM EDT 09/13/2022 3:27 AM EDT Narrative Resulting Agency Comment Spec In Lab Jigar Streeter MD HEMATOLOGY ORDERABLE S [facility] [address] * Phosphorus (09/13/2022 3:15 AM EDT) Phosphorus 3.0 2.5 - 4.5 mg/dL [facility] Blood 09/13/2022 3:15 AM EDT 09/13/2022 3:27 AM EDT Narrative Resulting Agency Comment Spec In Lab Richard Pascal MD CHEMISTRY ORDERABLES Performing Organization Address City/[facility]/ZIP Co de Phone Number [facility] [address] * Magnesium (09/13/2022 3:15 AM EDT) Magnesium 0.78 0.69 - 1.07 mmol/L [facility] Blood 09/13/2022 3:15 AM EDT 09/13/2022 3:27 AM EDT Narrative Resulting Agency Comment Spec In Lab Richard Pascal MD CHEMISTRY ORDERABLES [facility] [place] [address] * (ABNORMAL) Basic Metabolic Panel (non-fasting) (09/13/2022 3:15 AM EDT) Glucose 87 65 - 199 mg/dL [facility] Comment:Diabetes: >=200 mg/d L plus symptoms Blood Urea Nitrogen 8 8 - 18 mg/dL [facility] Creatinine 0.52(L) 0.70 - 1.20 mg/dL [facility] Sodium 141 135 - 145 mmol/L [facility] Potassium 3.6 3.5 - 5.0 mmol/L [facility] Comment: Please note: ??Patients with WBC >100,000 may have falsely elevated Potassium levels. ??For accurate Potassium quantification in these patients send serum separator tube (gold top) for subsequent determinations. ??Contact the Clinical Chemistry Laboratory if there are any questions. Chloride 103 98 - 107 mmol/L [facility] Carbon Dioxide 29 22 - 31 mmol/L [facility] Anion Gap 9 5 - 15 mmol/L [facility] Calcium 8.8 8.5 - 10.5 mg/dL [facility] Est Glomerular Filtration Rate 105 >=60 mL/min/1. 73 m?? [facility] Comment: This patient's estimated GFR was [...] MD CHEMISTRY ORDERABL ES Performing Organization Address [facility] Co de Phone Number [facility] [address] * POCT Glucose (09/12/2022 11:29 PM EDT) Glucose, POC 105 65 - 199 mg/dL [facility] Comment: Supplemental ranges: <140 mg/dL before meals <180 mg/dL all other times of the day Blood 09/12/2022 11:2 9 PM EDT 09/12/2022 11:29 PM EDT Chong Chao MD POINT OF CARE TEST O RDERABLES Performing Organization Address [facility] Co de Phone Number [facility] [address] * POCT Glucose (09/12/2022 7:24 PM EDT) Glucose, POC 121 65 - 199 mg/dL [facility] Comment: Supplemental ranges: <140 mg/dL before meals <180 mg/dL all other times of the day Blood 09/12/2022 7:24 PM EDT 09/12/2022 7:24 PM EDT Chong Chao MD POINT OF CARE TEST O RDERABLES Performing Organization Address [facility] Co de Phone Number [facility] [address] * (ABNORMAL) Basic Metabolic Panel (non-fasting) (09/12/2022 3:40 PM EDT) Glucose 103 65 - 199 mg/dL [facility] Comment:Diabetes: >=200 mg/d L plus symptoms Blood Urea Nitrogen 7(L) 8 - 18 mg/dL [facility] Creatinine 0.53(L) 0.70 - 1.20 mg/dL [facility] Sodium 140 135 - 145 mmol/L [facility] Potassium 4.0 3.5 - 5.0 mmol/L [facility] Comment: Please note: ??Patients with WBC >100,000 may have falsely elevated Potassium levels. ??For accurate Potassium quantification in these patients send serum separator tube (gold top) for subsequent determinations. ??Contact the Clinical Chemistry Laboratory if there are any questions. Chloride 102 98 - 107 mmol/L [facility] Carbon Dioxide 24 22 - 31 mmol/L [facility] Anion Gap 14 5 - 15 mmol/L [facility] Calcium 9.4 8.5 - 10.5 mg/dL [facility] Est Glomerular Filtration Rate 105 >=60 mL/min/1. 73 m?? [facility] Comment: This patient's estimated GFR was [...] In Lab Jigar Streeter MD CHEMISTRY ORDERABLES [facility] [address] * Magnesium (09/12/2022 3:40 PM EDT) Magnesium 0.93 0.69 - 1.07 mmol/L [facility] Blood 09/12/2022 3:40 PM EDT 09/12/2022 3:51 PM EDT Narrative Resulting Agency Comment Spec In Lab Richard Pascal MD CHEMISTRY ORDERABLES [facility] [address] * POCT Glucose (09/12/2022 3:36 PM EDT) Glucose, POC 109 65 - 199 mg/dL [facility] Comment: Supplemental ranges: <140 mg/dL before meals <180 mg/dL all other times of the day Blood 09/12/2022 3:36 PM EDT 09/12/2022 3:36 PM EDT Chong Chao MD POINT OF CARE TEST O RDERABLES Performing Organization Address City/[facility] Co de Phone Number [facility] [address] * POCT Glucose (09/12/2022 11:37 AM EDT) Glucose, POC 84 65 - 199 mg/dL [facility] Comment: Supplemental ranges: <140 mg/dL before meals <180 mg/dL all other times of the day Blood 09/12/2022 11:3 7 AM EDT 09/12/2022 11:37 AM EDT Chong Chao MD POINT OF CARE TEST O RDERABLES Performing Organization Address [facility] Co de Phone Number [facility] [address] * POCT Glucose (09/12/2022 6:33 AM EDT) Glucose, POC 98 65 - 199 mg/dL [facility] Comment: Supplemental ranges: <140 mg/dL before meals <180 mg/dL all other times of the day Blood 09/12/2022 6:33 AM EDT 09/12/2022 6:33 AM EDT Molina Flores MD POINT OF CARE TEST ORDERABLES Performing Organization Address [facility] [place] [address] * (ABNORMAL) Differential, Automated (09/12/2022 3:25 AM EDT) Neutrophil % 79.2 % [facility] Neutrophil Absolute 4.22 1.70 - 6.10 x10(3)/ L [facility] Lymph % 16.4 % [facility] Lymphocytes Abs 0.9 0.9 - 3.2 x10(3)/[facility] Monocyte % 3.2 % [facility] Monocyte Abs 0.2(L) 0.3 - 0.9 x10(3)/[facility] Eos % 0.0 % [facility] Eosinophils Abs 0.0 0.0 - 0.4 x10(3)/[facility] Basophil % 0.6 % [facility] Baso Absolute 0.0 0.0 - 0.1 x10(3)/[facility] Immature Gran % 0.60 % [facility] Comment: Immature granulocytes(IG's)percentage and absolute count will include metamyelocytes, myelocytes, and promyelocytes. Blood smears from CBCs yielding IG's will be scanned manually for concordance. If this scan disagrees with the automated IG or if promyelocytes are noted, a manual differential will be performed. Immature Gran Absolute 0.03 0.00 - 0.04 x10(3)/[facility] Blood 09/12/2022 3:25 AM EDT 09/12/2022 3:33 AM EDT Narrative Resulting Agency Comment Spec In Lab Jigar Streeter MD HEMATOLOGY ORDERABLE S Performing Organization Address City/State/[facility] Co de Phone Number [facility] [address] * (ABNORMAL) Hemogram (09/12/2022 3:25 AM EDT) White Blood Cell 5.3 4.0 - 9.5 x10(3)/[facility] Red Blood Cell 4.23 4.00 - 5.21 x10(6)/[facility] Comment:Dimorphic RBC popula tion. Hemoglobin 9.6(L) 11.7 - 15.5 g/dL [facility] Hematocrit 32.4(L) 35.7 - 45.8 % [facility] Mean Cell Volume 76.6(L) 82.6 - 94.4 fL [facility] Mean Cell Hemoglobin 22.7(L) 27.1 - 32.0 pg [facility] Mean Cell Hemoglobin Concentration 29.6(L) 31.7 - 35.0 g/dL [facility] Platelet 241 145 - 357 x10(3)/mc L [facility] RDW Standard Deviation 78.0(H) 37.0 - 46.0 fL [facility] RDW coefficient of variation 29.6(H) 11.5 - 14.1 % [facility] Mean Platelet Volume 9.9 7.6 - 12.9 fL [facility] NRBC% auto 0.0 % [facility] NRBC Absolute 0.000 0.000 - 0.000 x10(3)/mc L [facility] Blood 09/12/2022 3:25 AM EDT 09/12/2022 3:33 AM EDT Narrative Resulting Agency Comment Spec In Lab Jigar Streeter MD HEMATOLOGY ORDERABLE S Performing Organization Address City/[facility] Co de Phone Number [facility] [address] * Phosphorus (09/12/2022 3:25 AM EDT) Phosphorus 3.6 2.5 - 4.5 mg/dL [facility] Blood 09/12/2022 3:25 AM EDT 09/12/2022 3:33 AM EDT Narrative Resulting Agency Comment Spec In Lab Richard Pascal MD CHEMISTRY ORDERABLES Performing Organization Address [facility] Co de Phone Number [facility] [address] * (ABNORMAL) Basic Metabolic Panel (non-fasting) (09/12/2022 3:25 AM EDT) Glucose 123 65 - 199 mg/dL [facility] Comment:Diabetes: >=200 mg/d L plus symptoms Blood Urea Nitrogen 8 8 - 18 mg/dL [facility] Creatinine 0.49(L) 0.70 - 1.20 mg/dL [facility] Sodium 139 135 - 145 mmol/L [facility] Potassium 4.5 3.5 - 5.0 mmol/L [facility] Comment: result [id number] Please note: ??Patients with WBC >100,000 may have falsely elevated Potassium levels. ??For accurate Potassium quantification in these patients send serum separator tube (gold top) for subsequent determinations. ??Contact the Clinical Chemistry Laboratory if there are any questions. Chloride 104 98 - 107 mmol/L [facility] Carbon Dioxide 26 22 - 31 mmol/L [facility] Anion Gap 9 5 - 15 mmol/L [facility] Calcium 9.2 8.5 - 10.5 mg/dL [facility] Est Glomerular Filtration Rate 106 >=60 mL/min/1. 73 m?? [facility] Comment: This patient's estimated GFR was [...] Pascal MD CHEMISTRY ORDERABLES Performing Organization Address City/[facility]/ZIP Co de Phone Number [facility] [address] * Magnesium (09/12/2022 3:25 AM EDT) Magnesium 0.76 0.69 - 1.07 mmol/L [facility] Blood 09/12/2022 3:25 AM EDT 09/12/2022 3:33 AM EDT Narrative Resulting Agency Comment Spec In Lab Richard Pascal MD CHEMISTRY ORDERABLES [facility] [address] * POCT Glucose (09/12/2022 3:07 AM EDT) Glucose, POC 124 65 - 199 mg/dL [facility] Comment: Supplemental ranges: <140 mg/dL before meals <180 mg/dL all other times of the day Blood 09/12/2022 3:07 AM EDT 09/12/2022 3:07 AM EDT Molina Flores MD POINT OF CARE TEST ORDERABLES [facility] [address] * POCT Glucose (09/11/2022 11:30 PM EDT) Glucose, POC 175 65 - 199 mg/dL [facility] Comment: Supplemental ranges: <140 mg/dL before meals <180 mg/dL all other times of the day Blood 09/11/2022 11:3 0 PM EDT 09/11/2022 11:30 PM EDT Molina Flores MD POINT OF CARE TEST ORDERABLES Performing Organization Address City/[facility]/ZIP Co de Phone Number [facility] [place] [address] * POCT Glucose (09/11/2022 7:59 PM EDT) Glucose, POC 139 65 - 199 mg/dL [facility] Comment: Supplemental ranges: <140 mg/dL before meals <180 mg/dL all other times of the day Blood 09/11/2022 7:59 PM EDT 09/11/2022 7:59 PM EDT Molina Flores MD POINT OF CARE TEST ORDERABLES [facility] [place] [address] * POCT Glucose (09/11/2022 5:25 PM EDT) Glucose, POC 156 65 - 199 mg/dL [facility] Comment: Supplemental ranges: <140 mg/dL before meals <180 mg/dL all other times of the day Blood 09/11/2022 5:25 PM EDT 09/11/2022 5:25 PM EDT Molina Flores MD POINT OF CARE TEST ORDERABLES [facility] [address] * IR G-Tube Placement (09/11/2022 5:19 PM [...] barrier technique was used throughout. ??A 4 Venezuel[place] glide catheter??was placed??as a??nasoenteric tube??under fluoroscopy with [...] Glucose, POC 154 65 - 199 mg/dL [facility] Comment: Supplemental ranges: <140 mg/dL before meals <180 mg/dL all other times of the day Blood 09/11/2022 11:3 5 AM EDT 09/11/2022 11:35 AM EDT Molina Flores MD POINT OF CARE TEST ORDERABLES [facility] [address] * POCT Glucose (09/11/2022 6:47 AM EDT) Glucose, POC 147 65 - 199 mg/dL [facility] Comment: Supplemental ranges: <140 mg/dL before meals <180 mg/dL all other times of the day Blood 09/11/2022 6:47 AM EDT 09/11/2022 6:47 AM EDT Molina Flores MD POINT OF CARE TEST ORDERABLES Performing Organization Address City/[facility]/[place] [address] * Differential, Automated (09/11/2022 4:05 AM EDT) Neutrophil % 53.0 % [facility] Neutrophil Absolute 2.39 1.70 - 6.10 x10(3)/[facility] [address] [facility] Lymph % 26.4 % [facility] Lymphocytes Abs 1.2 0.9 - 3.2 x10(3)/[facility] [address] [facility]ORY Monocyte % 12.4 % [facility] Monocyte Abs 0.6 0.3 - 0.9 x10(3)/[facility] [address] [facility]ORATORY Eos % 6.9 % [facility] Eosinophils Abs 0.3 0.0 - 0.4 x10(3)/[facility] [address] LABORATORY Basophil % 0.9 % [facility] Baso Absolute 0.0 0.0 - 0.1 x10(3)/[facility] [address] [facility]ORATORY Immature Gran % 0.40 % [facility] Comment: Immature granulocytes(IG's)percentage and absolute count will include metamyelocytes, myelocytes, and promyelocytes. Blood smears from CBCs yielding IG's will be scanned manually for concordance. If this scan disagrees with the automated IG or if promyelocytes are noted, a manual differential will be performed. Immature Gran Absolute 0.02 0.00 - 0.04 x10(3)/[facility] [address] [facility] Blood 09/11/2022 4:05 AM EDT 09/11/2022 4:12 AM EDT Narrative Resulting Agency Comment Spec In Lab Jigar Streeter MD HEMATOLOGY ORDERABLE S Performing Organization Address City/[facility]/[place] [address] * (ABNORMAL) Hemogram (09/11/2022 4:05 AM EDT) White Blood Cell 4.5 4.0 - 9.5 x10(3)/ L [facility] Red Blood Cell 3.93(L) 4.00 - 5.21 x10(6)/mc L [facility] Hemoglobin 9.0(L) 11.7 - 15.5 g/dL [facility] Hematocrit 30.2(L) 35.7 - 45.8 % [facility] Mean Cell Volume 76.8(L) 82.6 - 94.4 fL [facility] Mean Cell Hemoglobin 22.9(L) 27.1 - 32.0 pg [facility] Mean Cell Hemoglobin Concentration 29.8(L) 31.7 - 35.0 g/dL [facility] Platelet 219 145 - 357 x10(3)/mc L [facility] RDW Standard Deviation 78.3(H) 37.0 - 46.0 fL [facility] RDW coefficient of variation 30.1(H) 11.5 - 14.1 % [facility] Mean Platelet Volume 9.8 7.6 - 12.9 fL [facility] NRBC% auto 0.0 % [facility] NRBC Absolute 0.000 0.000 - 0.000 x10(3)/[facility] Blood 09/11/2022 4:05 AM EDT 09/11/2022 4:12 AM EDT Narrative Resulting Agency Comment Spec In Lab Jigar Streeter MD HEMATOLOGY ORDERABLE S [facility] [address] * Phosphorus (09/11/2022 4:05 AM EDT) Phosphorus 2.8 2.5 - 4.5 mg/dL [facility] Blood 09/11/2022 4:05 AM EDT 09/11/2022 4:12 AM EDT Narrative Resulting Agency Comment Spec In Lab Richard Pascal MD CHEMISTRY ORDERABLES [facility] [address] * (ABNORMAL) Basic Metabolic Panel (non-fasting) (09/11/2022 4:05 AM EDT) Glucose 195 65 - 199 mg/dL [facility] Comment:Diabetes: >=200 mg/d L plus symptoms Blood Urea Nitrogen 6(L) 8 - 18 mg/dL [facility] Creatinine 0.44(L) 0.70 - 1.20 mg/dL [facility] Sodium 143 135 - 145 mmol/L [facility] Potassium 3.4(L) 3.5 - 5.0 mmol/L [facility] Comment: Please note: ??Patients with WBC >100,000 may have falsely elevated Potassium levels. ??For accurate Potassium quantification in these patients send serum separator tube (gold top) for subsequent determinations. ??Contact the Clinical Chemistry Laboratory if there are any questions. Chloride 107 98 - 107 mmol/L [facility] Carbon Dioxide 28 22 - 31 mmol/L [facility] Anion Gap 8 5 - 15 mmol/L [facility] Calcium 8.9 8.5 - 10.5 mg/dL [facility] Est Glomerular Filtration Rate 109 >=60 mL/min/1. 73 m?? [facility] Comment: This patient's estimated GFR was [...] In Lab Richard Pascal MD CHEMISTRY ORDERABLES [facility] [address] * POCT Glucose (09/11/2022 3:56 AM EDT) Glucose, POC 121 65 - 199 mg/dL [facility] Comment: Supplemental ranges: <140 mg/dL before meals <180 mg/dL all other times of the day Blood 09/11/2022 3:56 AM EDT 09/11/2022 3:56 AM EDT Molina Flores MD POINT OF CARE TEST ORDERABLES [facility] [address] * POCT Glucose (09/11/2022 12:03 AM EDT) Glucose, POC 174 65 - 199 mg/dL [facility] Comment: Supplemental ranges: <140 mg/dL before meals <180 mg/dL all other times of the day Blood 09/11/2022 12:0 3 AM EDT 09/11/2022 12:03 AM EDT Molina Flores MD POINT OF CARE TEST ORDERABLES [facility] [address] * POCT Glucose (09/10/2022 7:45 PM EDT) Glucose, POC 142 65 - 199 mg/dL [facility] Comment: Supplemental ranges: <140 mg/dL before meals <180 mg/dL all other times of the day Blood 09/10/2022 7:45 PM EDT 09/10/2022 7:45 PM EDT Molina Flores MD POINT OF CARE TEST ORDERABLES [facility] [address] * POCT Glucose (09/10/2022 4:21 PM EDT) Glucose, POC 141 65 - 199 mg/dL [facility] Comment: Supplemental ranges: <140 mg/dL before meals <180 mg/dL all other times of the day Blood 09/10/2022 4:21 PM EDT 09/10/2022 4:21 PM EDT Molina Flores MD POINT OF CARE TEST ORDERABLES [facility] [place] [address] * POCT Glucose (09/10/2022 3:23 PM EDT) Glucose, POC 188 65 - 199 mg/dL [facility] Comment: Supplemental ranges: <140 mg/dL before meals <180 mg/dL all other times of the day Blood 09/10/2022 3:23 PM EDT 09/10/2022 3:23 PM EDT Molina Flores MD POINT OF CARE TEST ORDERABLES [facility] [address] * POCT Glucose (09/10/2022 2:07 PM EDT) Glucose, POC 166 65 - 199 mg/dL [facility] Comment: Supplemental ranges: <140 mg/dL before meals <180 mg/dL all other times of the day Blood 09/10/2022 2:07 PM EDT 09/10/2022 2:07 PM EDT Molina Flores MD POINT OF CARE TEST ORDERABLES [facility] [address] * POCT Glucose (09/10/2022 11:59 AM EDT) Glucose, POC 165 65 - 199 mg/dL [facility] Comment: Supplemental ranges: <140 mg/dL before meals <180 mg/dL all other times of the day Blood 09/10/2022 11:5 9 AM EDT 09/10/2022 11:59 AM EDT Molina Flores MD [place] [address] * (ABNORMAL) Differential, Automated (09/10/2022 9:20 AM EDT) Neutrophil % 59.6 % [facility] Neutrophil Absolute 3.39 1.70 - 6.10 x10(3)/mc L [facility] Lymph % 21.4 % [facility] Lymphocytes Abs 1.2 0.9 - 3.2 x10(3)/mc L [facility] Monocyte % 11.4 % [facility] Monocyte Abs 0.6 0.3 - 0.9 x10(3)/mc L [facility] Eos % 6.2 % [facility] Eosinophils Abs 0.4 0.0 - 0.4 x10(3)/mc L [facility] Basophil % 0.5 % [facility] Baso Absolute 0.0 0.0 - 0.1 x10(3)/mc L [facility] Immature Gran % 0.90 % [facility] Comment: Immature granulocytes(IG's)percentage and absolute count will include metamyelocytes, myelocytes, and promyelocytes. Blood smears from CBCs yielding IG's will be scanned manually for concordance. If this scan disagrees with the automated IG or if promyelocytes are noted, a manual differential will be performed. Immature Gran Absolute 0.05(H) 0.00 - 0.04 x10(3)/mc L [facility] Blood 09/10/2022 9:20 AM EDT 09/10/2022 10:10 AM EDT Narrative Resulting Agency Comment Spec In Lab Chau Keith MD HEMATOLOGY ORDERABLE S Performing Organization Address City/[facility]/[place] [address] * (ABNORMAL) Hemogram (09/10/2022 9:20 AM EDT) White Blood Cell 5.7 4.0 - 9.5 x10(3)/ L [facility] Red Blood Cell 4.06 4.00 - 5.21 x10(6)/ L [facility] Comment:Dimorphic RBC popula tion. Hemoglobin 9.2(L) 11.7 - 15.5 g/dL [facility] Hematocrit 31.4(L) 35.7 - 45.8 % [facility] Mean Cell Volume 77.3(L) 82.6 - 94.4 fL [facility] Mean Cell Hemoglobin 22.7(L) 27.1 - 32.0 pg [facility] Mean Cell Hemoglobin Concentration 29.3(L) 31.7 - 35.0 g/dL [facility] Platelet 229 145 - 357 x10(3)/mc L [facility] RDW Standard Deviation Not Measured 37.0 - 46.0 fL [facility] RDW coefficient of variation Not Measured 11.5 - 14.1 % [facility] Mean Platelet Volume 10.5 7.6 - 12.9 fL [facility] NRBC% auto 0.0 % [facility] NRBC Absolute 0.000 0.000 - 0.000 x10(3)/ L [facility] Blood 09/10/2022 9:20 AM EDT 09/10/2022 10:10 AM EDT Narrative Resulting Agency Comment Spec In Lab Chau Keith MD HEMATOLOGY ORDERABLE S [facility] [place] [address] * POCT Glucose (09/10/2022 8:07 AM EDT) Glucose, POC 135 65 - 199 mg/dL [facility] Comment: Supplemental ranges: <140 mg/dL before meals <180 mg/dL all other times of the day Blood 09/10/2022 8:07 AM EDT 09/10/2022 8:07 AM EDT Molina Flores MD POINT OF CARE TEST ORDERABLES Performing Organization Address City/[facility] Co de Phone Number [facility] [place] [address] * POCT Glucose (09/10/2022 6:57 AM EDT) Glucose, POC 165 65 - 199 mg/dL [facility] Comment: Supplemental ranges: <140 mg/dL before meals <180 mg/dL all other times of the day Blood 09/10/2022 6:57 AM EDT 09/10/2022 6:57 AM EDT Molina Flores MD POINT OF CARE TEST ORDERABLES Performing Organization Address [facility] Co de Phone Number [facility] [place] [address] * Phosphorus (09/10/2022 6:00 AM EDT) Phosphorus 3.3 2.5 - 4.5 mg/dL [facility] Blood 09/10/2022 6:00 AM EDT 09/10/2022 6:13 AM EDT Narrative Resulting Agency Comment Spec In Lab Richard Pascal MD CHEMISTRY ORDERABLES Performing Organization Address [facility] Co de Phone Number [facility] [place] [address] * (ABNORMAL) Magnesium (09/10/2022 6:00 AM EDT) Magnesium 0.67(L) 0.69 - 1.07 mmol/L [facility] Blood 09/10/2022 6:00 AM EDT 09/10/2022 6:13 AM EDT Narrative Resulting Agency Comment Spec In Lab Richard Pascal MD CHEMISTRY ORDERABLES Performing Organization Address [facility] Co de Phone Number [facility] [place] [address] * (ABNORMAL) Basic Metabolic Panel (non-fasting) (09/10/2022 6:00 AM EDT) Glucose 158 65 - 199 mg/dL [facility] Comment:Diabetes: >=200 mg/d L plus symptoms Blood Urea Nitrogen 11 8 - 18 mg/dL [facility] Creatinine 0.48(L) 0.70 - 1.20 mg/dL [facility] Sodium 140 135 - 145 mmol/L [facility] Potassium 3.7 3.5 - 5.0 mmol/L [facility] Comment: Please note: ??Patients with WBC >100,000 may have falsely elevated Potassium levels. ??For accurate Potassium quantification in these patients send serum separator tube (gold top) for subsequent determinations. ??Contact the Clinical Chemistry Laboratory if there are any questions. Chloride 105 98 - 107 mmol/L [facility] Carbon Dioxide 27 22 - 31 mmol/L [facility] Anion Gap 8 5 - 15 mmol/L [facility] Calcium 9.1 8.5 - 10.5 mg/dL [facility] Est Glomerular Filtration Rate 107 >=60 mL/min/1. 73 m?? [facility] Comment: This patient's estimated GFR was [...] In Lab Richard Pascal MD CHEMISTRY ORDERABLES [facility] [place] [address] * POCT Glucose (09/10/2022 3:40 AM EDT) Glucose, POC 160 65 - 199 mg/dL [facility] Comment: Supplemental ranges: <140 mg/dL before meals <180 mg/dL all other times of the day Blood 09/10/2022 3:40 AM EDT 09/10/2022 3:40 AM EDT Molina Flores MD POINT OF CARE TEST ORDERABLES Performing Organization Address City/[facility] Co de Phone Number [facility] [place] [address] * POCT Glucose (09/10/2022 1:44 AM EDT) Glucose, POC 145 65 - 199 mg/dL [facility] Comment: Supplemental ranges: <140 mg/dL before meals <180 mg/dL all other times of the day Blood 09/10/2022 1:44 AM EDT 09/10/2022 1:44 AM EDT Molina Flores MD POINT OF CARE TEST ORDERABLES Performing Organization Address [facility] de Phone Number [facility] [place] [address] * XR Abdomen 1 view (Generic) (09/10/2022 [...] who have questions please contact the health coronary care unit nurse that requested your imaging first. ? Narrative 09/10/2022 1:16 AM EDT EXAMINATION: XR [...] patients who have questions please contactthe health coronary care unit nurse that requested your imaging first. Molina Flores MD IMG DX ORDERABLES * POCT Glucose (09/09/2022 8:09 PM EDT) [facility] Signature Glucose, POC 153 65 - 199 mg/dL [facility] Comment: Supplemental ranges: <140 mg/dL before meals <180 mg/dL all other times of the day Blood 09/09/2022 8:09 PM EDT 09/09/2022 8:09 PM EDT Molina Flores MD POINT OF CARE TEST ORDERABLES [facility] [address] * POCT Glucose (09/09/2022 5:20 PM EDT) Glucose, POC 146 65 - 199 mg/dL [facility] Comment: Supplemental ranges: <140 mg/dL before meals <180 mg/dL all other times of the day Blood 09/09/2022 5:20 PM EDT 09/09/2022 5:20 PM EDT Molina Flores MD POINT OF CARE TEST ORDERABLES Performing Organization Address City/[facility]/ZIP Co de Phone Number [facility] [place] [address] * POCT Glucose (09/09/2022 1:18 PM EDT) Glucose, POC 138 65 - 199 mg/dL [facility] Comment: Supplemental ranges: <140 mg/dL before meals <180 mg/dL all other times of the day Blood 09/09/2022 1:18 PM EDT 09/09/2022 1:18 PM EDT Molina Flores MD POINT OF CARE TEST ORDERABLES [facility] [address] * POCT Glucose (09/09/2022 10:10 AM EDT) Glucose, POC 167 65 - 199 mg/dL [facility] Comment: Supplemental ranges: <140 mg/dL before meals <180 mg/dL all other times of the day Blood 09/09/2022 10:1 0 AM EDT 09/09/2022 10:10 AM EDT Molina Flores MD POINT OF CARE TEST ORDERABLES [facility] [address] * POCT Glucose (09/09/2022 6:41 AM EDT) Glucose, POC 150 65 - 199 mg/dL [facility] Comment: Supplemental ranges: <140 mg/dL before meals <180 mg/dL all other times of the day Blood 09/09/2022 6:41 AM EDT 09/09/2022 6:41 AM EDT Molina Flores MD POINT OF CARE TEST ORDERABLES Performing Organization Address City/[facility]/ZIP Co de Phone Number [facility] [address] * (ABNORMAL) Differential, Automated (09/09/2022 4:00 AM EDT) Neutrophil % 49.9 % [facility] Neutrophil Absolute 3.43 1.70 - 6.10 x10(3)/mc L [facility] Lymph % 27.9 % [facility] Lymphocytes Abs 1.9 0.9 - 3.2 x10(3)/mc L [facility] Monocyte % 10.2 % [facility] Monocyte Abs 0.7 0.3 - 0.9 x10(3)/mc L [facility] Eos % 10.0 % [facility] Eosinophils Abs 0.7(H) 0.0 - 0.4 x10(3)/mc L [facility] Basophil % 1.0 % [facility] Baso Absolute 0.1 0.0 - 0.1 x10(3)/mc L [facility] Immature Gran % 1.00 % [facility] Comment: Immature granulocytes(IG's)percentage and absolute count will include metamyelocytes, myelocytes, and promyelocytes. Blood smears from CBCs yielding IG's will be scanned manually for concordance. If this scan disagrees with the automated IG or if promyelocytes are noted, a manual differential will be performed. Immature Gran Absolute 0.07(H) 0.00 - 0.04 x10(3)/[facility] Blood 09/09/2022 4:00 AM EDT 09/09/2022 4:18 AM EDT Narrative Resulting Agency Comment Spec In Lab Jigar Streeter MD HEMATOLOGY ORDERABLE S [facility] [address] * (ABNORMAL) Hemogram (09/09/2022 4:00 AM EDT) White Blood Cell 6.9 4.0 - 9.5 x10(3)/[facility] Red Blood Cell 4.37 4.00 - 5.21 x10(6)/[facility] Comment:Dimorphic RBC popula tion. Hemoglobin 9.8(L) 11.7 - 15.5 g/dL [facility] Hematocrit 33.4(L) 35.7 - 45.8 % [facility] Mean Cell Volume 76.4(L) 82.6 - 94.4 fL [facility] Mean Cell Hemoglobin 22.4(L) 27.1 - 32.0 pg [facility] Mean Cell Hemoglobin Concentration 29.3(L) 31.7 - 35.0 g/dL [facility] Platelet 264 145 - 357 x10(3)/[facility] RDW Standard Deviation 79.7(H) 37.0 - 46.0 fL [facility] RDW coefficient of variation 30.7(H) 11.5 - 14.1 % [facility] Mean Platelet Volume 10.0 7.6 - 12.9 fL [facility] NRBC% auto 0.0 % [facility] NRBC Absolute 0.000 0.000 - 0.000 x10(3)/[facility] Blood 09/09/2022 4:00 AM EDT 09/09/2022 4:18 AM EDT Narrative Resulting Agency Comment Spec In Lab Jigar Streeter MD HEMATOLOGY ORDERABLE S Performing Organization Address City/[facility]/ZIP Co de Phone Number [facility] [address] * (ABNORMAL) Basic Metabolic Panel (non-fasting) (09/09/2022 4:00 AM EDT) Glucose 139 65 - 199 mg/dL [facility] Comment:Diabetes: >=200 mg/d L plus symptoms Blood Urea Nitrogen 24(H) 8 - 18 mg/dL [facility] Creatinine 0.56(L) 0.70 - 1.20 mg/dL [facility] Sodium 140 135 - 145 mmol/L [facility] Potassium 4.3 3.5 - 5.0 mmol/L [facility] Comment: Please note: ??Patients with WBC >100,000 may have falsely elevated Potassium levels. ??For accurate Potassium quantification in these patients send serum separator tube (gold top) for subsequent determinations. ??Contact the Clinical Chemistry Laboratory if there are any questions. Chloride 102 98 - 107 mmol/L [facility] Carbon Dioxide 28 22 - 31 mmol/L [facility] Anion Gap 10 5 - 15 mmol/L [facility] Calcium 10.1 8.5 - 10.5 mg/dL [facility] Est Glomerular Filtration Rate 103 >=60 mL/min/1. 73 m?? [facility] Comment: This patient's estimated GFR was [...] Pascal MD CHEMISTRY ORDERABLES Performing Organization Address [facility]/ZIP Co de Phone Number [facility] [place] [address] * Phosphorus (09/09/2022 4:00 AM EDT) Phosphorus 4.2 2.5 - 4.5 mg/dL [facility] Blood 09/09/2022 4:00 AM EDT 09/09/2022 4:18 AM EDT Narrative Resulting Agency Comment Spec In Lab Richard Pascal MD CHEMISTRY ORDERABLES [facility] [place] [address] * Magnesium (09/09/2022 4:00 AM EDT) Magnesium 0.86 0.69 - 1.07 mmol/L [facility] Blood 09/09/2022 4:00 AM EDT 09/09/2022 4:18 AM EDT Narrative Resulting Agency Comment Spec In Lab Richard Pascal MD CHEMISTRY ORDERABLES Performing Organization Address City/[facility] Co de Phone Number [facility] [place] [address] * POCT Glucose (09/09/2022 3:49 AM EDT) Glucose, POC 140 65 - 199 mg/dL [facility] Comment: Supplemental ranges: <140 mg/dL before meals <180 mg/dL all other times of the day Blood 09/09/2022 3:49 AM EDT 09/09/2022 3:49 AM EDT Molina Flores MD POINT OF CARE TEST ORDERABLES Performing Organization Address City/[facility] Co de Phone Number [facility] [address] * POCT Glucose (09/08/2022 11:53 PM EDT) Glucose, POC 116 65 - 199 mg/dL [facility] Comment: Supplemental ranges: <140 mg/dL before meals <180 mg/dL all other times of the day Blood 09/08/2022 11:5 3 PM EDT 09/08/2022 11:53 PM EDT Molina Flores MD POINT OF CARE TEST ORDERABLES [facility] [place] [address] * POCT Glucose (09/08/2022 7:54 PM EDT) Glucose, POC 182 65 - 199 mg/dL [facility] Comment: Supplemental ranges: <140 mg/dL before meals <180 mg/dL all other times of the day Blood 09/08/2022 7:54 PM EDT 09/08/2022 7:54 PM EDT Molina Flores MD POINT OF CARE TEST ORDERABLES Performing Organization Address [facility]/ZIP Co de Phone Number [facility] [place] [address] * POCT Glucose (09/08/2022 4:57 PM EDT) Glucose, POC 119 65 - 199 mg/dL [facility] Comment: Supplemental ranges: <140 mg/dL before meals <180 mg/dL all other times of the day Blood 09/08/2022 4:57 PM EDT 09/08/2022 4:57 PM EDT Molina Flores MD POINT OF CARE TEST ORDERABLES [facility] [place] [address] * POCT Glucose (09/08/2022 6:53 AM EDT) Glucose, POC 134 65 - 199 mg/dL [facility] Comment: Supplemental ranges: <140 mg/dL before meals <180 mg/dL all other times of the day Blood 09/08/2022 6:53 AM EDT 09/08/2022 6:53 AM EDT Richard Pascal MD POINT OF CARE TEST O RDERABLES [facility] [address] * POCT Glucose (09/08/2022 3:57 AM EDT) Glucose, POC 165 65 - 199 mg/dL [facility] Comment: Supplemental ranges: <140 mg/dL before meals <180 mg/dL all other times of the day Blood 09/08/2022 3:57 AM EDT 09/08/2022 3:57 AM EDT Richard Pascal MD POINT OF CARE TEST O RDERABLES Performing Organization Address [facility] Co de Phone Number [facility] [address] * (ABNORMAL) Differential, Automated (09/08/2022 2:00 AM EDT) [facility] Neutrophil % 49.5 % [facility] Neutrophil Absolute 3.42 1.70 - 6.10 x10(3)/mc L [facility] Lymph % 28.0 % [facility] Lymphocytes Abs 1.9 0.9 - 3.2 x10(3)/mc L [facility] Monocyte % 12.2 % [facility] Monocyte Abs 0.8 0.3 - 0.9 x10(3)/mc L [facility] Eos % 8.7 % [facility] Eosinophils Abs 0.6(H) 0.0 - 0.4 x10(3)/mc L [facility] Basophil % 0.9 % [facility] Baso Absolute 0.1 0.0 - 0.1 x10(3)/mc L [facility] Immature Gran % 0.70 % [facility] Comment: Immature granulocytes(IG's)percentage and absolute count will include metamyelocytes, myelocytes, and promyelocytes. Blood smears from CBCs yielding IG's will be scanned manually for concordance. If this scan disagrees with the automated IG or if promyelocytes are noted, a manual differential will be performed. Immature Gran Absolute 0.05(H) 0.00 - 0.04 x10(3)/mc L [facility] Blood 09/08/2022 2:00 AM EDT 09/08/2022 2:13 AM EDT Narrative Resulting Agency Comment Spec In Lab Jigar Streeter MD HEMATOLOGY ORDERABLE S [facility] [address] * (ABNORMAL) Hemogram (09/08/2022 2:00 AM EDT) White Blood Cell 6.9 4.0 - 9.5 x10(3)/[facility] Red Blood Cell 4.34 4.00 - 5.21 x10(6)/[facility] Comment:Dimorphic RBC popula tion. Hemoglobin 9.8(L) 11.7 - 15.5 g/dL [facility] Hematocrit 32.6(L) 35.7 - 45.8 % [facility] Mean Cell Volume 75.1(L) 82.6 - 94.4 fL [facility] Mean Cell Hemoglobin 22.6(L) 27.1 - 32.0 pg [facility] Mean Cell Hemoglobin Concentration 30.1(L) 31.7 - 35.0 g/dL [facility] Platelet 300 145 - 357 x10(3)/[facility] RDW Standard Deviation Not Measured 37.0 - 46.0 fL [facility] RDW coefficient of variation Not Measured 11.5 - 14.1 % [facility] Mean Platelet Volume 9.5 7.6 - 12.9 fL [facility] NRBC% auto 0.0 % [facility] NRBC Absolute 0.000 0.000 - 0.000 x10(3)/ L [facility] Blood 09/08/2022 2:00 AM EDT 09/08/2022 2:13 AM EDT Narrative Resulting Agency Comment Spec In Lab Jigar Streeter MD HEMATOLOGY ORDERABLE S [facility] [address] * (ABNORMAL) Basic Metabolic Panel (non-fasting) (09/08/2022 2:00 AM EDT) Glucose 142 65 - 199 mg/dL [facility] Comment:Diabetes: >=200 mg/d L plus symptoms Blood Urea Nitrogen 25(H) 8 - 18 mg/dL [facility] Creatinine 0.52(L) 0.70 - 1.20 mg/dL [facility] Sodium 142 135 - 145 mmol/L [facility] Potassium 4.6 3.5 - 5.0 mmol/L [facility] Comment: Please note: ??Patients with WBC >100,000 may have falsely elevated Potassium levels. ??For accurate Potassium quantification in these patients send serum separator tube (gold top) for subsequent determinations. ??Contact the Clinical Chemistry Laboratory if there are any questions. Chloride 103 98 - 107 mmol/L [facility] Carbon Dioxide 30 22 - 31 mmol/L [facility] Anion Gap 9 5 - 15 mmol/L [facility] Calcium 10.0 8.5 - 10.5 mg/dL [facility] Est Glomerular Filtration Rate 105 >=60 mL/min/1. 73 m?? [facility] Comment: This patient's estimated GFR was [...] In Lab Richard Pascal MD CHEMISTRY ORDERABLES [facility] [address] * Phosphorus (09/08/2022 2:00 AM EDT) Phosphorus 3.2 2.5 - 4.5 mg/dL [facility] Blood 09/08/2022 2:00 AM EDT 09/08/2022 2:13 AM EDT Narrative Resulting Agency Comment Spec In Lab Richard Pascal MD CHEMISTRY ORDERABLES Performing Organization Address [facility] Co de Phone Number [facility] [address] * Magnesium (09/08/2022 2:00 AM EDT) Magnesium 0.90 0.69 - 1.07 mmol/L [facility] Blood 09/08/2022 2:00 AM EDT 09/08/2022 2:13 AM EDT Narrative Resulting Agency Comment Spec In Lab Richard Pascal MD CHEMISTRY ORDERABLES Performing Organization Address [facility] Co de Phone Number [facility] [address] * POCT Glucose (09/07/2022 11:06 PM EDT) Glucose, POC 189 65 - 199 mg/dL [facility] Comment: Supplemental ranges: <140 mg/dL before meals <180 mg/dL all other times of the day Blood 09/07/2022 11:0 6 PM EDT 09/07/2022 11:06 PM EDT Richard Pascal MD POINT OF CARE TEST O RDERABLES Performing Organization Address [facility] Co de Phone Number [facility] [address] * POCT Glucose (09/07/2022 8:21 PM EDT) Glucose, POC 143 65 - 199 mg/dL [facility] Comment: Supplemental ranges: <140 mg/dL before meals <180 mg/dL all other times of the day Blood 09/07/2022 8:21 PM EDT 09/07/2022 8:21 PM EDT Molina Flores MD POINT OF CARE TEST ORDERABLES [facility] [address] * POCT Glucose (09/07/2022 3:54 PM EDT) Glucose, POC 182 65 - 199 mg/dL [facility] Comment: Supplemental ranges: <140 mg/dL before meals <180 mg/dL all other times of the day Blood 09/07/2022 3:54 PM EDT 09/07/2022 3:54 PM EDT Moilna Flores MD POINT OF CARE TEST ORDERABLES Performing Organization Address City/[facility] Co de Phone Number [facility] [address] * POCT Glucose (09/07/2022 11:26 AM EDT) Glucose, POC 153 65 - 199 mg/dL [facility] Comment: Supplemental ranges: <140 mg/dL before meals <180 mg/dL all other times of the day Blood 09/07/2022 11:2 6 AM EDT 09/07/2022 11:26 AM EDT Molina Flores MD POINT OF CARE TEST ORDERABLES [facility] [address] * POCT Glucose (09/07/2022 7:46 AM EDT) Glucose, POC 150 65 - 199 mg/dL [facility] Comment: Supplemental ranges: <140 mg/dL before meals <180 mg/dL all other times of the day Blood 09/07/2022 7:46 AM EDT 09/07/2022 7:46 AM EDT Richard Pascal MD POINT OF CARE TEST O RDERABLES Performing Organization Address City/[facility]/ZIP Co de Phone Number [facility] [address] * EKG 12 Lead (09/07/2022 6:35 AM EDT) Pathologist [facility] Ventricular rate 72 BPM MUSE SYSTEM Atrial Rate 72 BPM MUSE SYSTEM P-R Interval 148 ms MUSE SYSTEM QRS Duration 72 ms MUSE SYSTEM Q-T Interval 416 ms MUSE SYSTEM QTC Calculated (Bezet) 455 ms MUSE SYSTEM Calculated P [place] 53 degrees MUSE SYSTEM Calculated R [place] 86 degrees MUSE SYSTEM Calculated T [place] 149 degrees MUSE SYSTEM INTERPRETATION Normal sinus rhythm with sinus arrhythmia Low voltage QRS T wave abnormality, consider anterolateral ischemia Abnormal ECG When compared with ECG of 01-SEP-2022 02:24, No significant change was found I personally reviewed the tracing and edited the fellows interpretation Confirmed by fellow Niurka Rose ([id number]) on 09/07/2022 8:45:34 AM Confirmed by MD ROBERTS DAVID ([id number]) on 09/07/2022 1:55:43 PM MUSE SYSTEM 09/07/2022 6:35 AM EDT 09/07/2022 1:55 PM EDT Richard Pascal MD ECG ORDERABLES Performing Organization Address [facility] Co de Phone Number MUSE SYSTEM * POCT Glucose (09/07/2022 4:08 AM EDT) [facility] Glucose, POC 135 65 - 199 mg/dL [facility] Comment: Supplemental ranges: <140 mg/dL before meals <180 mg/dL all other times of the day Blood 09/07/2022 4:08 AM EDT 09/07/2022 4:08 AM EDT Richard Pascal MD POINT OF CARE TEST O RDERABLES Performing Organization Address City/[facility]/ZIP Co de Phone Number [facility] [address] * (ABNORMAL) Differential, Automated (09/07/2022 12:30 AM EDT) Neutrophil % 43.6 % [facility] Neutrophil Absolute 2.71 1.70 - 6.10 x10(3)/mc L [facility] Lymph % 33.3 % [facility] Lymphocytes Abs 2.1 0.9 - 3.2 x10(3)/ L [facility] Monocyte % 11.6 % [facility] Monocyte Abs 0.7 0.3 - 0.9 x10(3)/[facility] Eos % 9.5 % [facility] Eosinophils Abs 0.6(H) 0.0 - 0.4 x10(3)/[facility] Basophil % 1.4 % [facility] Baso Absolute 0.1 0.0 - 0.1 x10(3)/[facility] Immature Gran % 0.60 % [facility] Comment: Immature granulocytes(IG's)percentage and absolute count will include metamyelocytes, myelocytes, and promyelocytes. Blood smears from CBCs yielding IG's will be scanned manually for concordance. If this scan disagrees with the automated IG or if promyelocytes are noted, a manual differential will be performed. Immature Gran Absolute 0.04 0.00 - 0.04 x10(3)/[facility] Blood 09/07/2022 12:3 0 AM EDT 09/07/2022 12:54 AM EDT Narrative Resulting Agency Comment Spec In Lab Jigar Streeter MD HEMATOLOGY ORDERABLE S Performing Organization Address City/State/[facility] Co de Phone Number [facility] [address] * (ABNORMAL) Hemogram (09/07/2022 12:30 AM EDT) White Blood Cell 6.2 4.0 - 9.5 x10(3)/[facility] Red Blood Cell 4.11 4.00 - 5.21 x10(6)/[facility] Hemoglobin 9.1(L) 11.7 - 15.5 g/dL [facility] Hematocrit 30.5(L) 35.7 - 45.8 % [facility] Mean Cell Volume 74.2(L) 82.6 - 94.4 fL [facility] Mean Cell Hemoglobin 22.1(L) 27.1 - 32.0 pg [facility] Mean Cell Hemoglobin Concentration 29.8(L) 31.7 - 35.0 g/dL [facility] Platelet 286 145 - 357 x10(3)/mc L [facility] RDW Standard Deviation Not Measured 37.0 - 46.0 fL [facility] RDW coefficient of variation Not Measured 11.5 - 14.1 % [facility] Mean Platelet Volume 9.6 7.6 - 12.9 fL [facility] NRBC% auto 0.0 % [facility] NRBC Absolute 0.000 0.000 - 0.000 x10(3)/ L [facility] Blood 09/07/2022 12:3 0 AM EDT 09/07/2022 12:54 AM EDT Narrative Resulting Agency Comment Spec In Lab Jigar Streeter MD HEMATOLOGY ORDERABLE S Performing Organization Address City/State/[facility] Co de Phone Number [facility] [address] * (ABNORMAL) Basic Metabolic Panel (non-fasting) (09/07/2022 12:30 AM EDT) Glucose 144 65 - 199 mg/dL [facility] Comment:Diabetes: >=200 mg/d L plus symptoms Blood Urea Nitrogen 22(H) 8 - 18 mg/dL [facility] Creatinine 0.53(L) 0.70 - 1.20 mg/dL [facility] Sodium 138 135 - 145 mmol/L [facility] Potassium 4.6 3.5 - 5.0 mmol/L [facility] Comment: Please note: ??Patients with WBC >100,000 may have falsely elevated Potassium levels. ??For accurate Potassium quantification in these patients send serum separator tube (gold top) for subsequent determinations. ??Contact the Clinical Chemistry Laboratory if there are any questions. Chloride 103 98 - 107 mmol/L [facility] Carbon Dioxide 29 22 - 31 mmol/L [facility] Anion Gap 6 5 - 15 mmol/L [facility] Calcium 9.4 8.5 - 10.5 mg/dL [facility] Est Glomerular Filtration Rate 105 >=60 mL/min/1. 73 m?? [facility] Comment: This patient's estimated GFR was [...] Pascal MD CHEMISTRY ORDERABLES Performing Organization Address [facility] Co de Phone Number [facility] [address] * Phosphorus (09/07/2022 12:30 AM EDT) Phosphorus 3.0 2.5 - 4.5 mg/dL [facility] Blood 09/07/2022 12:3 0 AM EDT 09/07/2022 12:54 AM EDT Narrative Resulting Agency Comment Spec In Lab Richard Pascal MD CHEMISTRY ORDERABLES Performing Organization Address City/[facility] Co de Phone Number [facility] [address] * Magnesium (09/07/2022 12:30 AM EDT) Magnesium 0.86 0.69 - 1.07 mmol/L [facility] Blood 09/07/2022 12:3 0 AM EDT 09/07/2022 12:54 AM EDT Narrative Resulting Agency Comment Spec In Lab Richard Pascal MD CHEMISTRY ORDERABLES Performing Organization Address City/[facility]/ZIP Co de Phone Number [facility] [address] * POCT Glucose (09/07/2022 12:29 AM EDT) Glucose, POC 127 65 - 199 mg/dL [facility] Comment: Supplemental ranges: <140 mg/dL before meals <180 mg/dL all other times of the day Blood 09/07/2022 12:2 9 AM EDT 09/07/2022 12:29 AM EDT Richard Pascal MD POINT OF CARE TEST O GABRIELLA [facility] [place] [address] * POCT Glucose (09/06/2022 9:54 PM EDT) Glucose, POC 184 65 - 199 mg/dL [facility] Comment: Supplemental ranges: <140 mg/dL before meals <180 mg/dL all other times of the day Blood 09/06/2022 9:54 PM EDT 09/06/2022 9:54 PM EDT Richard Pascal MD POINT OF CARE TEST O RDERAREYMUNDO [facility] [address] * POCT Glucose (09/06/2022 4:46 PM EDT) Glucose, POC 177 65 - 199 mg/dL [facility] Comment: Supplemental ranges: <140 mg/dL before meals <180 mg/dL all other times of the day Blood 09/06/2022 4:46 PM EDT 09/06/2022 4:46 PM EDT Richard Pascal MD POINT OF CARE TEST O RDERABLES [facility] [address] * POCT Glucose (09/06/2022 12:57 PM EDT) Glucose, POC 176 65 - 199 mg/dL [facility] Comment: Supplemental ranges: <140 mg/dL before meals <180 mg/dL all other times of the day Blood 09/06/2022 12:5 7 PM EDT 09/06/2022 12:57 PM EDT Richard Pascal MD POINT OF CARE TEST O RDERAREYMUNDO Performing Organization Address City/[facility] Co de Phone Number [facility] [address] * POCT Glucose (09/06/2022 9:06 AM EDT) Glucose, POC 162 65 - 199 mg/dL [facility] Comment: Supplemental ranges: <140 mg/dL before meals <180 mg/dL all other times of the day Blood 09/06/2022 9:06 AM EDT 09/06/2022 9:06 AM EDT Richard Pascal MD POINT OF CARE TEST O GABRIELLA Performing Organization Address [facility] Co de Phone Number [facility] [address] * POCT Glucose (09/06/2022 3:39 AM EDT) Glucose, POC 102 65 - 199 mg/dL [facility] Comment: Supplemental ranges: <140 mg/dL before meals <180 mg/dL all other times of the day Blood 09/06/2022 3:39 AM EDT 09/06/2022 3:39 AM EDT Richard Pascal MD POINT OF CARE TEST O RDERAREYMUNDO Performing Organization Address [facility] Co de Phone Number [facility] [address] * (ABNORMAL) Differential, Automated (09/06/2022 1:00 AM EDT) Neutrophil % 41.9 % [facility] Neutrophil Absolute 2.64 1.70 - 6.10 x10(3)/mc L [facility] Lymph % 36.2 % [facility] Lymphocytes Abs 2.3 0.9 - 3.2 x10(3)/ L [facility] Monocyte % 12.5 % [facility] Monocyte Abs 0.8 0.3 - 0.9 x10(3)/[facility] Eos % 7.6 % [facility] Eosinophils Abs 0.5(H) 0.0 - 0.4 x10(3)/[facility] Basophil % 1.3 % [facility] Baso Absolute 0.1 0.0 - 0.1 x10(3)/[facility] Immature Gran % 0.50 % [facility] Comment: Immature granulocytes(IG's)percentage and absolute count will include metamyelocytes, myelocytes, and promyelocytes. Blood smears from CBCs yielding IG's will be scanned manually for concordance. If this scan disagrees with the automated IG or if promyelocytes are noted, a manual differential will be performed. Immature Gran Absolute 0.03 0.00 - 0.04 x10(3)/ L [facility] Blood 09/06/2022 1:00 AM EDT 09/06/2022 1:34 AM EDT Narrative Resulting Agency Comment Spec In Lab Tyler Cobb MD HEMATOLOGY ORDERABLE S [facility] [address] * (ABNORMAL) Hemogram (09/06/2022 1:00 AM EDT) White Blood Cell 6.3 4.0 - 9.5 x10(3)/ L [facility] Red Blood Cell 3.92(L) 4.00 - 5.21 x10(6)/[facility] Comment:Dimorphic RBC popula tion. Hemoglobin 8.6(L) 11.7 - 15.5 g/dL [facility] Hematocrit 29.0(L) 35.7 - 45.8 % [facility] Mean Cell Volume 74.0(L) 82.6 - 94.4 fL [facility] Mean Cell Hemoglobin 21.9(L) 27.1 - 32.0 pg [facility] Mean Cell Hemoglobin Concentration 29.7(L) 31.7 - 35.0 g/dL [facility] Platelet 297 145 - 357 x10(3)/mc L [facility] RDW Standard Deviation Not Measured 37.0 - 46.0 fL [facility] RDW coefficient of variation Not Measured 11.5 - 14.1 % [facility] Mean Platelet Volume 9.8 7.6 - 12.9 fL [facility] NRBC% auto 0.0 % [facility] NRBC Absolute 0.000 0.000 - 0.000 x10(3)/mc L [facility] Blood 09/06/2022 1:00 AM EDT 09/06/2022 1:34 AM EDT Narrative Resulting Agency Comment Spec In Lab Tyler Cobb MD HEMATOLOGY ORDERABLE S Performing Organization Address City/State/[facility] Co de Phone Number [facility] [address] * (ABNORMAL) Basic Metabolic Panel (non-fasting) (09/06/2022 1:00 AM EDT) Glucose 95 65 - 199 mg/dL [facility] Comment:Diabetes: >=200 mg/d L plus symptoms Blood Urea Nitrogen 21(H) 8 - 18 mg/dL [facility] Creatinine 0.49(L) 0.70 - 1.20 mg/dL [facility] Sodium 139 135 - 145 mmol/L [facility] Potassium 4.3 3.5 - 5.0 mmol/L [facility] Comment: Please note: ??Patients with WBC >100,000 may have falsely elevated Potassium levels. ??For accurate Potassium quantification in these patients send serum separator tube (gold top) for subsequent determinations. ??Contact the Clinical Chemistry Laboratory if there are any questions. Chloride 104 98 - 107 mmol/L [facility] Carbon Dioxide 28 22 - 31 mmol/L [facility] Anion Gap 7 5 - 15 mmol/L [facility] Calcium 9.5 8.5 - 10.5 mg/dL [facility] Est Glomerular Filtration Rate 106 >=60 mL/min/1. 73 m?? [facility] Comment: This patient's estimated GFR was [...] Pascal MD CHEMISTRY ORDERABLES Performing Organization Address City/[facility] Co de Phone Number [facility] [address] * Phosphorus (09/06/2022 1:00 AM EDT) Phosphorus 3.6 2.5 - 4.5 mg/dL [facility] Blood 09/06/2022 1:00 AM EDT 09/06/2022 1:34 AM EDT Narrative Resulting Agency Comment Spec In Lab Richard Pascal MD CHEMISTRY ORDERABLES Performing Organization Address City/[facility]/ZIP Co de Phone Number [facility] [place] [address] * Magnesium (09/06/2022 1:00 AM EDT) Magnesium 0.81 0.69 - 1.07 mmol/L [facility] Blood 09/06/2022 1:00 AM EDT 09/06/2022 1:34 AM EDT Narrative Resulting Agency Comment Spec In Lab Richard Pascal MD CHEMISTRY ORDERABLES Performing Organization Address City/[facility]/ZIP Co de Phone Number [facility] [address] * POCT Glucose (09/05/2022 11:29 PM EDT) Glucose, POC 94 65 - 199 mg/dL [facility] Comment: Supplemental ranges: <140 mg/dL before meals <180 mg/dL all other times of the day Blood 09/05/2022 11:2 9 PM EDT 09/05/2022 11:29 PM EDT Richard Pascal MD POINT OF CARE TEST O GABRIELLA [facility] [place] [address] * POCT Glucose (09/05/2022 10:20 PM EDT) Glucose, POC 106 65 - 199 mg/dL [facility] Comment: Supplemental ranges: <140 mg/dL before meals <180 mg/dL all other times of the day Blood 09/05/2022 10:2 0 PM EDT 09/05/2022 10:20 PM EDT Richard Pascal MD POINT OF CARE TEST O GABRIELLA Performing Organization Address City/[facility]/ZIP Co de Phone Number [facility] [place] [address] * (ABNORMAL) POCT Glucose (09/05/2022 7:17 PM EDT) Glucose, POC 225(H) 65 - 199 mg/dL [facility] Comment: Supplemental ranges: <140 mg/dL before meals <180 mg/dL all other times of the day Blood 09/05/2022 7:17 PM EDT 09/05/2022 7:17 PM EDT Richard Pascal MD POINT OF CARE TEST O GABRIELLA [facility] [place] [address] * POCT Glucose (09/05/2022 3:54 PM EDT) Glucose, POC 142 65 - 199 mg/dL [facility] Comment: Supplemental ranges: <140 mg/dL before meals <180 mg/dL all other times of the day Blood 09/05/2022 3:54 PM EDT 09/05/2022 3:54 PM EDT Richard Pascal MD POINT OF CARE TEST O GABRIELLA Performing Organization Address [facility] Co de Phone Number [facility] [place] [address] * POCT Glucose (09/05/2022 12:44 PM EDT) Glucose, POC 142 65 - 199 mg/dL [facility] Comment: Supplemental ranges: <140 mg/dL before meals <180 mg/dL all other times of the day Blood 09/05/2022 12:4 4 PM EDT 09/05/2022 12:44 PM EDT Richard Pascal MD POINT OF CARE TEST O GABRIELLA Performing Organization Address [facility] Co de Phone Number [facility] [place] [address] * POCT Glucose (09/05/2022 9:51 AM EDT) Glucose, POC 173 65 - 199 mg/dL [facility] Comment: Supplemental ranges: <140 mg/dL before meals <180 mg/dL all other times of the day Blood 09/05/2022 9:51 AM EDT 09/05/2022 9:51 AM EDT Richard Pascal MD POINT OF CARE TEST O GABRIELLA Performing Organization Address [facility] Co de Phone Number [facility] [place] [address] * XR Chest One View (09/05/2022 9:24 AM EDT) Anatomical Region Laterality Modality Chest N/A Digital Radiogra phy Impressions 09/05/2022 3:43 PM EDT 1. Reposition enteric tube now extending below the diaphragm and included mroie-ym-lugo. 2. Similar appearance of elevated right hemidiaphragm and linear/patchy bibasilar opacities which may represent atelectasis or possibly aspiration. Thank you for letting us participate in the care of this patient. ??If you are a health care provider and have any questions regarding this report, please contact the number below. ??For patients who have questions please contact the health coronary care unit nurse that requested your imaging first. ? Narrative 09/05/2022 3:43 PM EDT EXAMINATION: XR [...] now extending below the diaphragm and included [id number]. Similar appearance of mild elevation of the [...] tube now extendingbelow the diaphragm and included ibiyz-da-cbgl. Similar appearance of mild elevation of the right hemidiaphragm withstreaky right basilar opacities and some mild patchy opacities at the left lungbase. No new focal airspace opacity. No appreciable pleural fluid collection. No pneumothorax. Cardiomediastinal silhouette is unchanged. No evidence of pulmonary edema. No acute osseous abnormality. IMPRESSION 1. Reposition enteric tube now extending below the diaphragm andincluded nqpfi-fg-[id number]. 2. Similar appearance of elevated right hemidiaphragm and linear/patchy bibasilar opacities which may represent atelectasis or possiblyaspiration. Thank you for letting us participate in the care of this patient. If youare a health care provider and have any questions regarding this report,please contact the number below. For patients who have questions please contactthe health coronary care unit nurse that requested your imaging first. Richadr Pascal MD IMG DX ORDERABLES * POCT Glucose (09/05/2022 4:10 AM EDT) Glucose, POC 162 65 - 199 mg/dL [facility] Comment: Supplemental ranges: <140 mg/dL before meals <180 mg/dL all other times of the day Blood 09/05/2022 4:10 AM EDT 09/05/2022 4:10 AM EDT Tenisha Sandy MD POINT OF CARE MARIANELA T ORDERABLES [facility] [place] [address] * POCT Glucose (09/05/2022 1:18 AM EDT) Glucose, POC 98 65 - 199 mg/dL [facility] Comment: Supplemental ranges: <140 mg/dL before meals <180 mg/dL all other times of the day Blood 09/05/2022 1:18 AM EDT 09/05/2022 1:18 AM EDT Tenisha Sandy MD POINT OF CARE MARIANELA T ORDERABLES Performing Organization Address City/[facility]/[place] [address] * Differential, Automated (09/05/2022 1:06 AM EDT) Neutrophil % 38.7 % [facility] Neutrophil Absolute 1.88 1.70 - 6.10 x10(3)/[facility] [address] [facility] Lymph % 35.9 % [facility] Lymphocytes Abs 1.8 0.9 - 3.2 x10(3)/[facility] [address] [facility] Monocyte % 14.2 % [facility] Monocyte Abs 0.7 0.3 - 0.9 x10(3)/[facility] [address] [facility] Eos % 9.2 % [facility] Eosinophils Abs 0.4 0.0 - 0.4 x10(3)/[facility] [address] [facility] Basophil % 1.6 % [facility] Baso Absolute 0.1 0.0 - 0.1 x10(3)/[facility] [address] [facility] Immature Gran % 0.40 % [facility] Comment: Immature granulocytes(IG's)percentage and absolute count will include metamyelocytes, myelocytes, and promyelocytes. Blood smears from CBCs yielding IG's will be scanned manually for concordance. If this scan disagrees with the automated IG or if promyelocytes are noted, a manual differential will be performed. Immature Gran Absolute 0.02 0.00 - 0.04 x10(3)/[facility] [address] [facility] Blood 09/05/2022 1:06 AM EDT 09/05/2022 1:20 AM EDT Narrative Resulting Agency Comment Spec In Lab Tyler Cobb MD HEMATOLOGY ORDERABLE S Performing Organization Address City/[facility]/[place] [address] * (ABNORMAL) Hemogram (09/05/2022 1:06 AM EDT) White Blood Cell 4.9 4.0 - 9.5 x10(3)/mc L [facility] Red Blood Cell 3.93(L) 4.00 - 5.21 x10(6)/mc L [facility] Comment:Dimorphic RBC popula tion. Hemoglobin 8.7(L) 11.7 - 15.5 g/dL [facility] Hematocrit 29.0(L) 35.7 - 45.8 % [facility] Mean Cell Volume 73.8(L) 82.6 - 94.4 fL [facility] Mean Cell Hemoglobin 22.1(L) 27.1 - 32.0 pg [facility] Mean Cell Hemoglobin Concentration 30.0(L) 31.7 - 35.0 g/dL [facility] Platelet 314 145 - 357 x10(3)/mc L [facility] RDW Standard Deviation Not Measured 37.0 - 46.0 fL [facility] RDW coefficient of variation Not Measured 11.5 - 14.1 % [facility] Mean Platelet Volume 9.8 7.6 - 12.9 fL [facility] NRBC% auto 0.0 % [facility] NRBC Absolute 0.000 0.000 - 0.000 x10(3)/ L [facility] Blood 09/05/2022 1:06 AM EDT 09/05/2022 1:20 AM EDT Narrative Resulting Agency Comment Spec In Lab Tyler Cobb MD HEMATOLOGY ORDERABLE S [facility] [address] * (ABNORMAL) Basic Metabolic Panel (non-fasting) (09/05/2022 1:06 AM EDT) Glucose 95 65 - 199 mg/dL [facility] Comment:Diabetes: >=200 mg/d L plus symptoms Blood Urea Nitrogen 21(H) 8 - 18 mg/dL [facility] Creatinine 0.49(L) 0.70 - 1.20 mg/dL [facility] Sodium 140 135 - 145 mmol/L [facility] Potassium 3.8 3.5 - 5.0 mmol/L [facility] Comment: Please note: ??Patients with WBC >100,000 may have falsely elevated Potassium levels. ??For accurate Potassium quantification in these patients send serum separator tube (gold top) for subsequent determinations. ??Contact the Clinical Chemistry Laboratory if there are any questions. Chloride 103 98 - 107 mmol/L [facility] Carbon Dioxide 28 22 - 31 mmol/L [facility] Anion Gap 9 5 - 15 mmol/L [facility] Calcium 9.5 8.5 - 10.5 mg/dL [facility] Est Glomerular Filtration Rate 106 >=60 mL/min/1. 73 m?? [facility] Comment: This patient's estimated GFR was [...] Pascal MD CHEMISTRY ORDERABLES Performing Organization Address City/[facility]/ZIP Co de Phone Number [facility] [address] * Phosphorus (09/05/2022 1:06 AM EDT) Phosphorus 3.9 2.5 - 4.5 mg/dL [facility] Blood 09/05/2022 1:06 AM EDT 09/05/2022 1:20 AM EDT Narrative Resulting Agency Comment Spec In Lab Richard Pascal MD CHEMISTRY ORDERABLES Performing Organization Address City/[facility]/ZIP Co de Phone Number [facility] [address] * Magnesium (09/05/2022 1:06 AM EDT) Magnesium 0.91 0.69 - 1.07 mmol/L [facility] Blood 09/05/2022 1:06 AM EDT 09/05/2022 1:20 AM EDT Narrative Resulting Agency Comment Spec In Lab Richard Pascal MD CHEMISTRY ORDERABLES Performing Organization Address [facility] Co de Phone Number [facility] [place] [address] * POCT Glucose (09/04/2022 10:16 PM EDT) Glucose, POC 138 65 - 199 mg/dL [facility] Comment: Supplemental ranges: <140 mg/dL before meals <180 mg/dL all other times of the day Blood 09/04/2022 10:1 6 PM EDT 09/04/2022 10:16 PM EDT Tenisha Sandy MD POINT OF CARE MARIANELA T ORDERABLES Performing Organization Address [facility] Co de Phone Number [facility] [address] * XR Abdomen 1 view (Generic) (09/04/2022 [...] who have questions please contact the health coronary care unit nurse that requested your imaging [...] patients who have questions please contactthe health coronary care unit nurse that requested your imaging [...] who have questions please contact the health coronary care unit nurse that requested your imaging [...] patients who have questions please contactthe health coronary care unit nurse that requested your imaging first. Tenisha Sandy MD IMG DX ORDERABLES * POCT Glucose (09/04/2022 8:49 PM EDT) Glucose, POC 73 65 - 199 mg/dL [facility] Comment: Supplemental ranges: <140 mg/dL before meals <180 mg/dL all other times of the day Blood 09/04/2022 8:49 PM EDT 09/04/2022 8:49 PM EDT Tenisha Sandy MD POINT OF CARE MARIANELA T ORDERABLES [facility] [address] * POCT Glucose (09/04/2022 5:20 PM EDT) Glucose, POC 136 65 - 199 mg/dL [facility] Comment: Supplemental ranges: <140 mg/dL before meals <180 mg/dL all other times of the day Blood 09/04/2022 5:20 PM EDT 09/04/2022 5:20 PM EDT Tenisha Sandy MD POINT OF CARE MARIANELA T ORDERABLES Performing Organization Address [facility] Co de Phone Number [facility] [address] * (ABNORMAL) POCT Glucose (09/04/2022 4:39 PM EDT) Glucose, POC 64(L) 65 - 199 mg/dL [facility] Comment: Supplemental ranges: <140 mg/dL before meals <180 mg/dL all other times of the day Blood 09/04/2022 4:39 PM EDT 09/04/2022 4:39 PM EDT Tenisha Sandy MD POINT OF CARE MARIANELA T ORDERABLES [facility] [place] [address] * POCT Glucose (09/04/2022 3:21 PM EDT) Glucose, POC 68 65 - 199 mg/dL [facility] Comment: Supplemental ranges: <140 mg/dL before meals <180 mg/dL all other times of the day Blood 09/04/2022 3:21 PM EDT 09/04/2022 3:21 PM EDT Tenisha Sandy MD POINT OF CARE MARIANELA T ORDERABLES Performing Organization Address City/[facility]/ZIP Co de Phone Number [facility] [address] * POCT Glucose (09/04/2022 11:07 AM EDT) Glucose, POC 107 65 - 199 mg/dL [facility] Comment: Supplemental ranges: <140 mg/dL before meals <180 mg/dL all other times of the day Blood 09/04/2022 11:0 7 AM EDT 09/04/2022 11:07 AM EDT Tenisha Sandy MD POINT OF CARE MARIANELA T ORDERABLES Performing Organization Address [facility] Co de Phone Number [facility] [place] [address] * XR Fluoro Barium Swallow (Modified/Video Swallow [...] who have questions please contact the health coronary care unit nurse that requested your imaging first. ? Narrative 09/04/2022 10:57 AM EDT EXAMINATION: XR [...] patients who have questions please contactthe health coronary care unit nurse that requested your imaging first. Tenisha Sandy MD IMG FLUORO ORDERA BLES * POCT Glucose (09/04/2022 7:18 AM EDT) Glucose, POC 106 65 - 199 mg/dL [facility] Comment: Supplemental ranges: <140 mg/dL before meals <180 mg/dL all other times of the day Blood 09/04/2022 7:18 AM EDT 09/04/2022 7:18 AM EDT Tenisha Sandy MD POINT OF CARE MARIANELA T ORDERABLES Performing Organization Address [facility] Co de Phone Number [facility] [address] * POCT Glucose (09/04/2022 3:35 AM EDT) Glucose, POC 107 65 - 199 mg/dL [facility] Comment: Supplemental ranges: <140 mg/dL before meals <180 mg/dL all other times of the day Blood 09/04/2022 3:35 AM EDT 09/04/2022 3:35 AM EDT Tenisha Sandy MD POINT OF CARE MARIANELA T ORDERABLES Performing Organization Address City/[facility] Co de Phone Number [facility] [address] * Differential, Automated (09/04/2022 12:26 AM EDT) Neutrophil % 60.2 % [facility] Neutrophil Absolute 4.05 1.70 - 6.10 x10(3)/[facility] [address] [facility] Lymph % 27.4 % [facility] Lymphocytes Abs 1.8 0.9 - 3.2 x10(3)/[facility] [address] [facility] Monocyte % 5.4 % [facility] Monocyte Abs 0.4 0.3 - 0.9 x10(3)/[facility] [address] [facility] Eos % 5.4 % [facility] Eosinophils Abs 0.4 0.0 - 0.4 x10(3)/[facility] [address] [facility] Basophil % 1.3 % [facility] Baso Absolute 0.1 0.0 - 0.1 x10(3)/[facility] [address] [facility] Immature Gran % 0.30 % [facility] Comment: Immature granulocytes(IG's)percentage and absolute count will include metamyelocytes, myelocytes, and promyelocytes. Blood smears from CBCs yielding IG's will be scanned manually for concordance. If this scan disagrees with the automated IG or if promyelocytes are noted, a manual differential will be performed. Immature Gran Absolute 0.02 0.00 - 0.04 x10(3)/[facility] [address] [facility] Blood 09/04/2022 12:2 6 AM EDT 09/04/2022 12:38 AM EDT Narrative Resulting Agency Comment Spec In Lab Tyler Cobb MD HEMATOLOGY ORDERABLE S [facility] [address] * (ABNORMAL) Hemogram (09/04/2022 12:26 AM EDT) White Blood Cell 6.7 4.0 - 9.5 x10(3)/mc L [facility] Red Blood Cell 3.83(L) 4.00 - 5.21 x10(6)/[facility] Comment:Dimorphic RBC popula tion. Hemoglobin 8.5(L) 11.7 - 15.5 g/dL [facility] Hematocrit 28.1(L) 35.7 - 45.8 % [facility] Mean Cell Volume 73.4(L) 82.6 - 94.4 fL [facility] Mean Cell Hemoglobin 22.2(L) 27.1 - 32.0 pg [facility] Mean Cell Hemoglobin Concentration 30.2(L) 31.7 - 35.0 g/dL [facility] Platelet 300 145 - 357 x10(3)/mc L [facility] RDW Standard Deviation Not Measured 37.0 - 46.0 fL [facility] RDW coefficient of variation Not Measured 11.5 - 14.1 % [facility] Mean Platelet Volume 9.9 7.6 - 12.9 fL [facility] NRBC% auto 0.0 % [facility] NRBC Absolute 0.000 0.000 - 0.000 x10(3)/mc L [facility] Blood 09/04/2022 12:2 6 AM EDT 09/04/2022 12:38 AM EDT Narrative Resulting Agency Comment Spec In Lab Tyler Cobb MD HEMATOLOGY ORDERABLE S [facility] [place] [address] * (ABNORMAL) Basic Metabolic Panel (non-fasting) (09/04/2022 12:26 AM EDT) Glucose 131 65 - 199 mg/dL [facility] Comment:Diabetes: >=200 mg/d L plus symptoms Blood Urea Nitrogen 30(H) 8 - 18 mg/dL [facility] Creatinine 0.53(L) 0.70 - 1.20 mg/dL [facility] Sodium 141 135 - 145 mmol/L [facility] Potassium 4.3 3.5 - 5.0 mmol/L [facility] Comment: Please note: ??Patients with WBC >100,000 may have falsely elevated Potassium levels. ??For accurate Potassium quantification in these patients send serum separator tube (gold top) for subsequent determinations. ??Contact the Clinical Chemistry Laboratory if there are any questions. Chloride 104 98 - 107 mmol/L [facility] Carbon Dioxide 29 22 - 31 mmol/L [facility] Anion Gap 8 5 - 15 mmol/L [facility] Calcium 9.4 8.5 - 10.5 mg/dL [facility] Est Glomerular Filtration Rate 105 >=60 mL/min/1. 73 m?? [facility] Comment: This patient's estimated GFR was [...] Pascal MD CHEMISTRY ORDERABLES Performing Organization Address [facility] Co de Phone Number [facility] [place] [address] * Phosphorus (09/04/2022 12:26 AM EDT) Phosphorus 3.2 2.5 - 4.5 mg/dL [facility] Blood 09/04/2022 12:2 6 AM EDT 09/04/2022 12:38 AM EDT Narrative Resulting Agency Comment Spec In Lab Richard Pascal MD CHEMISTRY ORDERABLES Performing Organization Address [facility] Co de Phone Number [facility] [address] * Magnesium (09/04/2022 12:26 AM EDT) Magnesium 0.88 0.69 - 1.07 mmol/L [facility] Blood 09/04/2022 12:2 6 AM EDT 09/04/2022 12:38 AM EDT Narrative Resulting Agency Comment Spec In Lab Richard Pascal MD CHEMISTRY ORDERABLES Performing Organization Address City/[facility]/ZIP Co de Phone Number [facility] [place] [address] * POCT Glucose (09/04/2022 12:19 AM EDT) Glucose, POC 125 65 - 199 mg/dL [facility] Comment: Supplemental ranges: <140 mg/dL before meals <180 mg/dL all other times of the day Blood 09/04/2022 12:1 9 AM EDT 09/04/2022 12:19 AM EDT Tenisha Sandy MD POINT OF CARE MARIANELA T ORDERABLES Performing Organization Address [facility] Co de Phone Number [facility] [place] [address] * POCT Glucose (09/03/2022 7:30 PM EDT) Glucose, POC 166 65 - 199 mg/dL [facility] Comment: Supplemental ranges: <140 mg/dL before meals <180 mg/dL all other times of the day Blood 09/03/2022 7:30 PM EDT 09/03/2022 7:30 PM EDT Tenisha Sandy MD POINT OF CARE AMRIANELA T ORDERABLES Performing Organization Address [facility] Co de Phone Number [facility] [place] [address] * (ABNORMAL) POCT Glucose (09/03/2022 4:00 PM EDT) Glucose, POC 207(H) 65 - 199 mg/dL [facility] Comment: Supplemental ranges: <140 mg/dL before meals <180 mg/dL all other times of the day Blood 09/03/2022 4:00 PM EDT 09/03/2022 4:00 PM EDT Tenisha Sandy MD POINT OF CARE MARIANELA T ORDERABLES [facility] [place] [address] * (ABNORMAL) POCT Glucose (09/03/2022 12:43 PM EDT) Glucose, POC 207(H) 65 - 199 mg/dL [facility] Comment: Supplemental ranges: <140 mg/dL before meals <180 mg/dL all other times of the day Blood 09/03/2022 12:4 3 PM EDT 09/03/2022 12:43 PM EDT Tenisha Sandy MD POINT OF CARE MARIANELA T ORDERABLES Performing Organization Address City/[facility]/ZIP Co de Phone Number [facility] [place] [address] * POCT Glucose (09/03/2022 7:48 AM EDT) Glucose, POC 173 65 - 199 mg/dL [facility] Comment: Supplemental ranges: <140 mg/dL before meals <180 mg/dL all other times of the day Blood 09/03/2022 7:48 AM EDT 09/03/2022 7:48 AM EDT Tenisha Sandy MD POINT OF CARE MARIANELA T ORDERABLES Performing Organization Address City/[facility]/ZIP Co de Phone Number [facility] [place] [address] * POCT Glucose (09/03/2022 4:52 AM EDT) Glucose, POC 91 65 - 199 mg/dL [facility] Comment: Supplemental ranges: <140 mg/dL before meals <180 mg/dL all other times of the day Blood 09/03/2022 4:52 AM EDT 09/03/2022 4:52 AM EDT Tenisha Sandy MD POINT OF CARE MARIANELA T ORDERABLES Performing Organization Address City/[facility]/ZIP Co de Phone Number [facility] [place] [address] * Differential, Automated (09/03/2022 12:40 AM EDT) Neutrophil % 42.9 % [facility] Neutrophil Absolute 2.19 1.70 - 6.10 x10(3)/[facility] [address] [facility]OR[facility]ORY Lymph % 38.0 % [facility] Lymphocytes Abs 1.9 0.9 - 3.2 x10(3)/[facility] [address] [facility] Monocyte % 11.6 % [facility] Monocyte Abs 0.6 0.3 - 0.9 x10(3)/[facility] [address] [facility]ORY Eos % 5.7 % [facility] Eosinophils Abs 0.3 0.0 - 0.4 x10(3)/[facility] [address] [facility]ORY Basophil % 1.6 % [facility] Baso Absolute 0.1 0.0 - 0.1 x10(3)/[facility] [address] [facility]ORY Immature Gran % 0.20 % [facility] Comment: Immature granulocytes(IG's)percentage and absolute count will include metamyelocytes, myelocytes, and promyelocytes. Blood smears from CBCs yielding IG's will be scanned manually for concordance. If this scan disagrees with the automated IG or if promyelocytes are noted, a manual differential will be performed. Immature Gran Absolute 0.01 0.00 - 0.04 x10(3)/[facility] [address] [facility] Blood 09/03/2022 12:4 0 AM EDT 09/03/2022 12:51 AM EDT Narrative Resulting Agency Comment Spec In Lab Tyler Cobb MD HEMATOLOGY ORDERABLE S [facility] [place] [address] * (ABNORMAL) Hemogram (09/03/2022 12:40 AM EDT) White Blood Cell 5.1 4.0 - 9.5 x10(3)/[facility] Red Blood Cell 3.75(L) 4.00 - 5.21 x10(6)/[facility] Comment:Dimorphic RBC popula tion. Hemoglobin 8.4(L) 11.7 - 15.5 g/dL [facility] Hematocrit 27.1(L) 35.7 - 45.8 % [facility] Mean Cell Volume 72.3(L) 82.6 - 94.4 fL [facility] Mean Cell Hemoglobin 22.4(L) 27.1 - 32.0 pg [facility] Mean Cell Hemoglobin Concentration 31.0(L) 31.7 - 35.0 g/dL [facility] Platelet 305 145 - 357 x10(3)/mc L [facility] RDW Standard Deviation Not Measured 37.0 - 46.0 fL [facility] RDW coefficient of variation Not Measured 11.5 - 14.1 % [facility] Mean Platelet Volume 9.8 7.6 - 12.9 fL [facility] NRBC% auto 0.0 % [facility] NRBC Absolute 0.000 0.000 - 0.000 x10(3)/ L [facility] Blood 09/03/2022 12:4 0 AM EDT 09/03/2022 12:51 AM EDT Narrative Resulting Agency Comment Spec In Lab Tyler Cobb MD HEMATOLOGY ORDERABLE S [facility] [place] [address] * (ABNORMAL) Basic Metabolic Panel (non-fasting) (09/03/2022 12:40 AM EDT) Glucose 107 65 - 199 mg/dL [facility] Comment:Diabetes: >=200 mg/d L plus symptoms Blood Urea Nitrogen 28(H) 8 - 18 mg/dL [facility] Creatinine 0.49(L) 0.70 - 1.20 mg/dL [facility] Sodium 138 135 - 145 mmol/L [facility] Potassium 4.1 3.5 - 5.0 mmol/L [facility] Comment: Please note: ??Patients with WBC >100,000 may have falsely elevated Potassium levels. ??For accurate Potassium quantification in these patients send serum separator tube (gold top) for subsequent determinations. ??Contact the Clinical Chemistry Laboratory if there are any questions. Chloride 102 98 - 107 mmol/L [facility] Carbon Dioxide 29 22 - 31 mmol/L [facility] Anion Gap 7 5 - 15 mmol/L [facility] Calcium 9.2 8.5 - 10.5 mg/dL [facility] Est Glomerular Filtration Rate 106 >=60 mL/min/1. 73 m?? [facility] Comment: This patient's estimated GFR was [...] Pascal MD CHEMISTRY ORDERABLES Performing Organization Address [facility] Co de Phone Number [facility] [address] * Phosphorus (09/03/2022 12:40 AM EDT) Phosphorus 3.4 2.5 - 4.5 mg/dL [facility] Blood 09/03/2022 12:4 0 AM EDT 09/03/2022 12:51 AM EDT Narrative Resulting Agency Comment Spec In Lab Richard Pascal MD CHEMISTRY ORDERABLES Performing Organization Address [facility] Co de Phone Number [facility] [address] * Magnesium (09/03/2022 12:40 AM EDT) Magnesium 0.96 0.69 - 1.07 mmol/L [facility] Blood 09/03/2022 12:4 0 AM EDT 09/03/2022 12:51 AM EDT Narrative Resulting Agency Comment Spec In Lab Richard Pascal MD CHEMISTRY ORDERABLES [facility] [place] [address] * POCT Glucose (09/02/2022 11:05 PM EDT) Glucose, POC 106 65 - 199 mg/dL [facility] Comment: Supplemental ranges: <140 mg/dL before meals <180 mg/dL all other times of the day Blood 09/02/2022 11:0 5 PM EDT 09/02/2022 11:05 PM EDT Tenisha Sandy MD POINT OF CARE MARIANELA T ORDERABLES Performing Organization Address City/[facility]/ZIP Co de Phone Number [facility] [address] * POCT Glucose (09/02/2022 8:05 PM EDT) Glucose, POC 107 65 - 199 mg/dL [facility] Comment: Supplemental ranges: <140 mg/dL before meals <180 mg/dL all other times of the day Blood 09/02/2022 8:05 PM EDT 09/02/2022 8:05 PM EDT Tenisha Sandy MD POINT OF CARE MARIANELA T ORDERABLES Performing Organization Address City/[facility]/ZIP Co de Phone Number [facility] [address] * POCT Glucose (09/02/2022 4:22 PM EDT) Glucose, POC 183 65 - 199 mg/dL [facility] Comment: Supplemental ranges: <140 mg/dL before meals <180 mg/dL all other times of the day Blood 09/02/2022 4:22 PM EDT 09/02/2022 4:22 PM EDT Tenisha Sandy MD POINT OF CARE MARIANELA T ORDERABLES [facility] [address] * POCT Glucose (09/02/2022 12:22 PM EDT) Glucose, POC 194 65 - 199 mg/dL [facility] Comment: Supplemental ranges: <140 mg/dL before meals <180 mg/dL all other times of the day Blood 09/02/2022 12:2 2 PM EDT 09/02/2022 12:22 PM EDT Tenisha Sandy MD POINT OF CARE MARIANELA T ORDERABLES Performing Organization Address City/State/[facility] Co de Phone Number [facility] [address] * POCT Glucose (09/02/2022 7:49 AM EDT) Glucose, POC 141 65 - 199 mg/dL [facility] Comment: Supplemental ranges: <140 mg/dL before meals <180 mg/dL all other times of the day Blood 09/02/2022 7:49 AM EDT 09/02/2022 7:49 AM EDT Tenisha Sandy MD POINT OF CARE MARIANELA T ORDERABLES Performing Organization Address City/[facility] Co de Phone Number [facility] [address] * POCT Glucose (09/02/2022 5:43 AM EDT) Glucose, POC 102 65 - 199 mg/dL [facility] Comment: Supplemental ranges: <140 mg/dL before meals <180 mg/dL all other times of the day Blood 09/02/2022 5:43 AM EDT 09/02/2022 5:43 AM EDT Tenisha Sandy MD POINT OF CARE MARIANELA T ORDERABLES Performing Organization Address City/[facility] Co de Phone Number [facility] [address] * POCT Glucose (09/02/2022 3:44 AM EDT) Glucose, POC 112 65 - 199 mg/dL [facility] Comment: Supplemental ranges: <140 mg/dL before meals <180 mg/dL all other times of the day Blood 09/02/2022 3:44 AM EDT 09/02/2022 3:44 AM EDT Tenisha Sandy MD POINT OF CARE MARIANELA T ORDERABLES Performing Organization Address [facility] Co de Phone Number [facility] [address] * (ABNORMAL) Reticulocyte Count (09/02/2022 1:05 AM EDT) Reticulocyte % 2.2 0.7 - 2.5 % [facility] Retic Abs # 0.080 0.020 - 0.110 x10(6)/[facility] [address] [facility]ORATORY Immature Retic% 45.2(H) 0.5 - 13.8 % [facility] Reticulated Hgb 22.9(L) 29.8 - 39.4 pg [facility] Blood Venous Draw / Unknown 09/02/2022 1:05 AM EDT 09/02/2022 1:19 AM EDT Narrative Resulting Agency Comment Spec In Lab Irwin Jones MD HEMATOLOGY ORDERAB LES Performing Organization Address [facility] [place] [place] [address] * Differential, Automated (09/02/2022 1:05 AM EDT) Neutrophil % 48.4 % [facility] Neutrophil Absolute 2.83 1.70 - 6.10 x10(3)/[facility] [address] [facility]ORATORY Lymph % 34.6 % [facility] Lymphocytes Abs 2.0 0.9 - 3.2 x10(3)/[facility] [address] LABORATORY Monocyte % 10.4 % [facility] Monocyte Abs 0.6 0.3 - 0.9 x10(3)/[facility] [address] LABORATORY Eos % 4.8 % [facility] Eosinophils Abs 0.3 0.0 - 0.4 x10(3)/[facility] [address] LABORATORY Basophil % 1.5 % [facility] Baso Absolute 0.1 0.0 - 0.1 x10(3)/[facility] [address] [facility]ORATORY Immature Gran % 0.30 % [facility] Comment: Immature granulocytes(IG's)percentage and absolute count will include metamyelocytes, myelocytes, and promyelocytes. Blood smears from CBCs yielding IG's will be scanned manually for concordance. If this scan disagrees with the automated IG or if promyelocytes are noted, a manual differential will be performed. Immature Gran Absolute 0.02 0.00 - 0.04 x10(3)/[facility] [address] [facility] Blood 09/02/2022 1:05 AM EDT 09/02/2022 1:19 AM EDT Narrative Resulting Agency Comment Spec In Lab Tyler Cobb MD HEMATOLOGY ORDERABLE S [facility] [place] [address] * (ABNORMAL) Hemogram (09/02/2022 1:05 AM EDT) White Blood Cell 5.9 4.0 - 9.5 x10(3)/mc L [facility] Red Blood Cell 3.81(L) 4.00 - 5.21 x10(6)/ L [facility] Comment: CORRECTION: ADDING COMMENT : Dimorphic RBC population. Corrected from 3.81 x10(6)/[facility] [LOW] on 09/02/22 11:26:40 EDT by Jigar Palmer Hemoglobin 8.3(L) 11.7 - 15.5 g/dL [facility] Hematocrit 27.7(L) 35.7 - 45.8 % [facility] Mean Cell Volume 72.7(L) 82.6 - 94.4 fL [facility] Mean Cell Hemoglobin 21.8(L) 27.1 - 32.0 pg [facility] Mean Cell Hemoglobin Concentration 30.0(L) 31.7 - 35.0 g/dL [facility] Platelet 344 145 - 357 x10(3)/ L [facility] RDW Standard Deviation Not Measured 37.0 - 46.0 fL [facility] RDW coefficient of variation Not Measured 11.5 - 14.1 % [facility] Mean Platelet Volume 9.8 7.6 - 12.9 fL [facility] NRBC% auto 0.0 % [facility] NRBC Absolute 0.000 0.000 - 0.000 x10(3)/mc L [facility] Blood 09/02/2022 1:05 AM EDT 09/02/2022 1:19 AM EDT Narrative Resulting Agency Comment Spec In Lab Tyler Cobb MD HEMATOLOGY ORDERABLE S [facility] [address] * (ABNORMAL) Basic Metabolic Panel (non-fasting) (09/02/2022 1:05 AM EDT) Glucose 114 65 - 199 mg/dL [facility] Comment:Diabetes: >=200 mg/d L plus symptoms Blood Urea Nitrogen 30(H) 8 - 18 mg/dL [facility] Creatinine 0.52(L) 0.70 - 1.20 mg/dL [facility] Sodium 136 135 - 145 mmol/L [facility] Potassium 4.4 3.5 - 5.0 mmol/L [facility] Comment: Please note: ??Patients with WBC >100,000 may have falsely elevated Potassium levels. ??For accurate Potassium quantification in these patients send serum separator tube (gold top) for subsequent determinations. ??Contact the Clinical Chemistry Laboratory if there are any questions. Chloride 100 98 - 107 mmol/L [facility] Carbon Dioxide 30 22 - 31 mmol/L [facility] Anion Gap 6 5 - 15 mmol/L [facility] Calcium 9.5 8.5 - 10.5 mg/dL [facility] Est Glomerular Filtration Rate 105 >=60 mL/min/1. 73 m?? [facility] Comment: This patient's estimated GFR was [...] Pascal MD CHEMISTRY ORDERABLES Performing Organization Address City/[facility]/ZIP Co de Phone Number [facility] [address] * Phosphorus (09/02/2022 1:05 AM EDT) Phosphorus 3.9 2.5 - 4.5 mg/dL [facility] Blood 09/02/2022 1:05 AM EDT 09/02/2022 1:19 AM EDT Narrative Resulting Agency Comment Spec In Lab Richard Pascal MD CHEMISTRY ORDERABLES Performing Organization Address [facility] Co de Phone Number [facility] [address] * Magnesium (09/02/2022 1:05 AM EDT) Magnesium 0.87 0.69 - 1.07 mmol/L [facility] Blood 09/02/2022 1:05 AM EDT 09/02/2022 1:19 AM EDT Narrative Resulting Agency Comment Spec In Lab Richard Pascal MD CHEMISTRY ORDERABLES Performing Organization Address [facility] Co de Phone Number [facility] [place] [address] * POCT Glucose (09/02/2022 12:51 AM EDT) Glucose, POC 110 65 - 199 mg/dL [facility] Comment: Supplemental ranges: <140 mg/dL before meals <180 mg/dL all other times of the day Blood 09/02/2022 12:5 1 AM EDT 09/02/2022 12:51 AM EDT Tenisha Sandy MD POINT OF CARE MARIANELA T ORDERABLES Performing Organization Address City/[facility] Co de Phone Number [facility] [address] * POCT Glucose (09/01/2022 8:11 PM EDT) Glucose, POC 93 65 - 199 mg/dL [facility] Comment: Supplemental ranges: <140 mg/dL before meals <180 mg/dL all other times of the day Blood 09/01/2022 8:11 PM EDT 09/01/2022 8:11 PM EDT Tenisha Sandy MD POINT OF CARE MARIANELA T ORDERABLES Performing Organization Address [facility] Co de Phone Number [facility] [place] [address] * POCT Glucose (09/01/2022 5:41 PM EDT) Glucose, POC 170 65 - 199 mg/dL [facility] Comment: Supplemental ranges: <140 mg/dL before meals <180 mg/dL all other times of the day Blood 09/01/2022 5:41 PM EDT 09/01/2022 5:41 PM EDT Tenisha Sandy MD POINT OF CARE MARIANELA T ORDERABLES Performing Organization Address [facility] Co de Phone Number [facility] [place] [address] * POCT Glucose (09/01/2022 11:33 AM EDT) Glucose, POC 171 65 - 199 mg/dL [facility] Comment: Supplemental ranges: <140 mg/dL before meals <180 mg/dL all other times of the day Blood 09/01/2022 11:3 3 AM EDT 09/01/2022 11:33 AM EDT Tenisha Sandy MD POINT OF CARE MARIANELA T ORDERABLES [facility] [address] * POCT Glucose (09/01/2022 7:55 AM EDT) Glucose, POC 166 65 - 199 mg/dL [facility] Comment: Supplemental ranges: <140 mg/dL before meals <180 mg/dL all other times of the day Blood 09/01/2022 7:55 AM EDT 09/01/2022 7:55 AM EDT Tenisha Sandy MD POINT OF CARE MARIANELA T ORDERABLES Performing Organization Address [facility] Co de Phone Number [facility] [address] * POCT Glucose (09/01/2022 3:29 AM EDT) Glucose, POC 87 65 - 199 mg/dL [facility] Comment: Supplemental ranges: <140 mg/dL before meals <180 mg/dL all other times of the day Blood 09/01/2022 3:29 AM EDT 09/01/2022 3:29 AM EDT Tenisha Sandy MD POINT OF CARE MARIANELA T ORDERABLES Performing Organization Address [facility] Co de Phone Number [facility] [address] * EKG 12 Lead (09/01/2022 2:24 AM EDT) Ventricular rate 80 BPM MUSE SYSTEM Atrial Rate 80 BPM MUSE SYSTEM P-R Interval 150 ms MUSE SYSTEM QRS Duration 76 ms MUSE SYSTEM Q-T Interval 412 ms MUSE SYSTEM QTC Calculated (Bezet) 475 ms MUSE SYSTEM Calculated P [place] 50 degrees MUSE SYSTEM Calculated R [place] 70 degrees MUSE SYSTEM Calculated T [place] 174 degrees MUSE SYSTEM INTERPRETATION Normal sinus [...] Sandy MD ECG ORDERABLES Performing Organization Address City/[facility]/ZIP Co de Phone Number MUSE SYSTEM * Scan, Peripheral Blood (09/01/2022 2:10 AM EDT) Plat estimate Increased [facility] RBC Morphology Abnormal [facility] Macrocyte 1-5 /HPF [facility] Microcyte 6-10 /HPF [facility] Hypochromia Slight [facility] Polychromasia Present >5/HPF [facility] Ovalocytes 1-5 /HPF [facility] Target Cells 1-5 /HPF [facility] [place] Cells 6-10 /HPF [facility] Plat, Giant Less than 1 /HPF [facility] Blood 09/01/2022 2:10 AM EDT 09/01/2022 2:15 AM EDT Narrative Resulting Agency Comment Spec In Lab Tyler Cobb MD HEMATOLOGY ORDERABLE S Performing Organization Address City/[facility]/ZIP Co de Phone Number [facility] [place] [address] * Differential, Automated (09/01/2022 2:10 AM EDT) Neutrophil % 46.0 % [facility] Neutrophil Absolute 2.52 1.70 - 6.10 x10(3)/[facility] [address] LABORATORY Lymph % 37.1 % [facility] Lymphocytes Abs 2.0 0.9 - 3.2 x10(3)/[facility] Monocyte % 10.1 % [facility] Monocyte Abs 0.6 0.3 - 0.9 x10(3)/[facility] [address] [facility]ATORY Eos % 5.3 % [facility] Eosinophils Abs 0.3 0.0 - 0.4 x10(3)/[facility] [address] [facility]ORATORY Basophil % 1.3 % [facility] Baso Absolute 0.1 0.0 - 0.1 x10(3)/[facility] [address] LABORATORY Immature Gran % 0.20 % [facility] Comment: Immature granulocytes(IG's)percentage and absolute count will include metamyelocytes, myelocytes, and promyelocytes. Blood smears from CBCs yielding IG's will be scanned manually for concordance. If this scan disagrees with the automated IG or if promyelocytes are noted, a manual differential will be performed. Immature Gran Absolute 0.01 0.00 - 0.04 x10(3)/[facility] [address] [facility]ORY Blood 09/01/2022 2:10 AM EDT 09/01/2022 2:15 AM EDT Narrative Resulting Agency Comment Spec In Lab Tyler Cobb MD HEMATOLOGY ORDERABLE S [facility] [address] * (ABNORMAL) Hemogram (09/01/2022 2:10 AM EDT) White Blood Cell 5.5 4.0 - 9.5 x10(3)/mc L [facility] Red Blood Cell 3.95(L) 4.00 - 5.21 x10(6)/mc L [facility] Comment:Dimorphic RBC popula tion. Hemoglobin 8.7(L) 11.7 - 15.5 g/dL [facility] Hematocrit 28.5(L) 35.7 - 45.8 % [facility] Mean Cell Volume 72.2(L) 82.6 - 94.4 fL [facility] Mean Cell Hemoglobin 22.0(L) 27.1 - 32.0 pg [facility] Mean Cell Hemoglobin Concentration 30.5(L) 31.7 - 35.0 g/dL [facility] Platelet 361(H) 145 - 357 x10(3)/mc L [facility] RDW Standard Deviation Not Measured 37.0 - 46.0 fL [facility] RDW coefficient of variation Not Measured 11.5 - 14.1 % [facility] Mean Platelet Volume 9.5 7.6 - 12.9 fL [facility] NRBC% auto 0.0 % [facility] NRBC Absolute 0.000 0.000 - 0.000 x10(3)/mc L [facility] Blood 09/01/2022 2:10 AM EDT 09/01/2022 2:15 AM EDT Narrative Resulting Agency Comment Spec In Lab Tyler Cobb MD HEMATOLOGY ORDERABLE S [facility] [place] [address] * (ABNORMAL) Basic Metabolic Panel (non-fasting) (09/01/2022 2:10 AM EDT) Glucose 86 65 - 199 mg/dL [facility] Comment:Diabetes: >=200 mg/d L plus symptoms Blood Urea Nitrogen 29(H) 8 - 18 mg/dL [facility] Creatinine 0.51(L) 0.70 - 1.20 mg/dL [facility] Sodium 140 135 - 145 mmol/L [facility] Potassium 4.6 3.5 - 5.0 mmol/L [facility] Comment: Please note: ??Patients with WBC >100,000 may have falsely elevated Potassium levels. ??For accurate Potassium quantification in these patients send serum separator tube (gold top) for subsequent determinations. ??Contact the Clinical Chemistry Laboratory if there are any questions. Chloride 104 98 - 107 mmol/L [facility] Carbon Dioxide 29 22 - 31 mmol/L [facility] Anion Gap 7 5 - 15 mmol/L [facility] Calcium 9.4 8.5 - 10.5 mg/dL [facility] Est Glomerular Filtration Rate 105 >=60 mL/min/1. 73 m?? [facility] Comment: This patient's estimated GFR was [...] Pascal MD CHEMISTRY ORDERABLES Performing Organization Address [facility] Co de Phone Number [facility] [address] * Phosphorus (09/01/2022 2:10 AM EDT) Phosphorus 4.3 2.5 - 4.5 mg/dL [facility] Blood 09/01/2022 2:10 AM EDT 09/01/2022 2:15 AM EDT Narrative Resulting Agency Comment Spec In Lab Richard Pascal MD CHEMISTRY ORDERABLES Performing Organization Address [facility] Co de Phone Number [facility] [address] * Magnesium (09/01/2022 2:10 AM EDT) Magnesium 0.94 0.69 - 1.07 mmol/L [facility] Blood 09/01/2022 2:10 AM EDT 09/01/2022 2:15 AM EDT Narrative Resulting Agency Comment Spec In Lab Richard Pascal MD CHEMISTRY ORDERABLES Performing Organization Address [facility] de Phone Number [facility] [address] * POCT Glucose (08/31/2022 11:46 PM EDT) Glucose, POC 93 65 - 199 mg/dL [facility] Comment: Supplemental ranges: <140 mg/dL before meals <180 mg/dL all other times of the day Blood 08/31/2022 11:4 6 PM EDT 08/31/2022 11:46 PM EDT Tenisha Sandy MD POINT OF CARE MARIANELA T ORDERABLES Performing Organization Address City/[facility] Co de Phone Number [facility] [place] [address] * POCT Glucose (08/31/2022 8:12 PM EDT) Glucose, POC 110 65 - 199 mg/dL [facility] Comment: Supplemental ranges: <140 mg/dL before meals <180 mg/dL all other times of the day Blood 08/31/2022 8:12 PM EDT 08/31/2022 8:12 PM EDT Tenisha Sandy MD POINT OF CARE MARIANELA T ORDERABLES Performing Organization Address [facility] Co de Phone Number [facility] [address] * (ABNORMAL) POCT Glucose (08/31/2022 4:32 PM EDT) Glucose, POC 206(H) 65 - 199 mg/dL [facility] Comment: Supplemental ranges: <140 mg/dL before meals <180 mg/dL all other times of the day Blood 08/31/2022 4:32 PM EDT 08/31/2022 4:32 PM EDT Tenisha Sandy MD POINT OF CARE MARIANELA T ORDERABLES Performing Organization Address [facility] Co de Phone Number [facility] [place] [address] * POCT Glucose (08/31/2022 11:42 AM EDT) Glucose, POC 163 65 - 199 mg/dL [facility] Comment: Supplemental ranges: <140 mg/dL before meals <180 mg/dL all other times of the day Blood 08/31/2022 11:4 2 AM EDT 08/31/2022 11:42 AM EDT Tenisha Sandy MD POINT OF CARE MARIANELA T ORDERABLES Performing Organization Address City/[facility]/ZIP Co de Phone Number [facility] [place] [address] * XR Fluoro Barium Swallow (Modified/Video Swallow [...] who have questions please contact the health coronary care unit nurse that requested your imaging first. ? Narrative 08/31/2022 12:02 PM EDT EXAMINATION: XR [...] patients who have questions please contactthe health coronary care unit nurse that requested your imaging first. Milagros Hernandez MD IMG FLUORO ORDERABLE S * POCT Glucose (08/31/2022 7:36 AM EDT) Glucose, POC 116 65 - 199 mg/dL [facility] Comment: Supplemental ranges: <140 mg/dL before meals <180 mg/dL all other times of the day Blood 08/31/2022 7:36 AM EDT 08/31/2022 7:36 AM EDT Alfonso Navarrete MD POINT [place] [address] * Differential, Automated (08/31/2022 4:30 AM EDT) Pathologist [facility] Neutrophil % 59.8 % [facility] Neutrophil Absolute 4.03 1.70 - 6.10 x10(3)/[facility] [address] LABORATORY Lymph % 26.3 % [facility] Lymphocytes Abs 1.8 0.9 - 3.2 x10(3)/[facility] [address] LABORATORY Monocyte % 7.9 % [facility] LAB[facility] Monocyte Abs 0.5 0.3 - 0.9 x10(3)/[facility] [address] LABORATORY Eos % 4.7 % [facility] LAB[facility]ATORY Eosinophils Abs 0.3 0.0 - 0.4 x10(3)/[facility] [address] LABORATORY Basophil % 1.0 % [facility] LAB[facility] Baso Absolute 0.1 0.0 - 0.1 x10(3)/[facility] [address] LABORATORY Immature Gran % 0.30 % [facility] Comment: Immature granulocytes(IG's)percentage and absolute count will include metamyelocytes, myelocytes, and promyelocytes. Blood smears from CBCs yielding IG's will be scanned manually for concordance. If this scan disagrees with the automated IG or if promyelocytes are noted, a manual differential will be performed. Immature Gran Absolute 0.02 0.00 - 0.04 x10(3)/[facility] [address] LABORATORY Blood 08/31/2022 4:30 AM EDT 08/31/2022 4:36 AM EDT Narrative Resulting Agency Comment Spec In Lab Tyler Cobb [place] [address] * (ABNORMAL) Hemogram (08/31/2022 4:30 AM EDT) [facility] White Blood Cell 6.7 4.0 - 9.5 x10(3)/mc L [facility] Red Blood Cell 3.97(L) 4.00 - 5.21 x10(6)/mc L [facility] Comment:Dimorphic RBC popula tion. Hemoglobin 8.7(L) 11.7 - 15.5 g/dL [facility] Hematocrit 29.2(L) 35.7 - 45.8 % [facility] Mean Cell Volume 73.6(L) 82.6 - 94.4 fL [facility] Mean Cell Hemoglobin 21.9(L) 27.1 - 32.0 pg [facility] Mean Cell Hemoglobin Concentration 29.8(L) 31.7 - 35.0 g/dL [facility] Platelet 330 145 - 357 x10(3)/mc L [facility] RDW Standard Deviation Not Measured 37.0 - 46.0 fL [facility] RDW coefficient of variation Not Measured 11.5 - 14.1 % [facility] Mean Platelet Volume 9.8 7.6 - 12.9 fL [facility] NRBC% auto 0.0 % [facility] LABORATORY NRBC Absolute 0.000 0.000 - 0.000 x10(3)/mc L [facility] Blood 08/31/2022 4:30 AM EDT 08/31/2022 4:36 AM EDT Narrative Resulting Agency Comment Spec In Lab Tyler Cobb MD HEMATOLOGY ORDERABLE S [facility] [place] [address] * Phosphorus (08/31/2022 4:30 AM EDT) Phosphorus 3.4 2.5 - 4.5 mg/dL [facility] Blood 08/31/2022 4:30 AM EDT 08/31/2022 4:36 AM EDT Narrative Resulting Agency Comment Spec In Lab Richard Pascal MD CHEMISTRY ORDERABLES Performing Organization Address City/[facility]/ZIP Co de Phone Number [facility] [address] * Magnesium (08/31/2022 4:30 AM EDT) Magnesium 0.81 0.69 - 1.07 mmol/L [facility] Blood 08/31/2022 4:30 AM EDT 08/31/2022 4:36 AM EDT Narrative Resulting Agency Comment Spec In Lab Richard Pascal MD CHEMISTRY ORDERABLES Performing Organization Address [facility] Co de Phone Number [facility] [address] * POCT Glucose (08/31/2022 4:08 AM EDT) Glucose, POC 88 65 - 199 mg/dL [facility] Comment: Supplemental ranges: <140 mg/dL before meals <180 mg/dL all other times of the day Blood 08/31/2022 4:08 AM EDT 08/31/2022 4:08 AM EDT Alfonso Navarrete MD POINT OF CARE TEST O RDERABLES Performing Organization Address [facility] Co de Phone Number [facility] [address] * POCT Glucose (08/31/2022 12:03 AM EDT) Glucose, POC 98 65 - 199 mg/dL [facility] Comment: Supplemental ranges: <140 mg/dL before meals <180 mg/dL all other times of the day Blood 08/31/2022 12:0 3 AM EDT 08/31/2022 12:03 AM EDT Alfonso Navarrete MD POINT OF CARE TEST O RDERABLES Performing Organization Address [facility] Co de Phone Number [facility] [address] * POCT Glucose (08/30/2022 7:58 PM EDT) Glucose, POC 131 65 - 199 mg/dL [facility] Comment: Supplemental ranges: <140 mg/dL before meals <180 mg/dL all other times of the day Blood 08/30/2022 7:58 PM EDT 08/30/2022 7:58 PM EDT Alfonso Navarrete MD POINT OF CARE TEST O RDERABLES Performing Organization Address City/[facility]/ZIP Co de Phone Number [facility] [address] * POCT Glucose (08/30/2022 4:59 PM EDT) Glucose, POC 169 65 - 199 mg/dL [facility] Comment: Supplemental ranges: <140 mg/dL before meals <180 mg/dL all other times of the day Blood 08/30/2022 4:59 PM EDT 08/30/2022 4:59 PM EDT Roland Pruett MD POINT OF CARE TEST O RDERABLES Performing Organization Address [facility] Co de Phone Number [facility] [address] * POCT Glucose (08/30/2022 11:29 AM EDT) Glucose, POC 168 65 - 199 mg/dL [facility] Comment: Supplemental ranges: <140 mg/dL before meals <180 mg/dL all other times of the day Blood 08/30/2022 11:2 9 AM EDT 08/30/2022 11:29 AM EDT Roland Pruett MD POINT OF CARE TEST O RDERABLES Performing Organization Address [facility] Co de Phone Number [facility] [address] * POCT Glucose (08/30/2022 8:59 AM EDT) Glucose, POC 160 65 - 199 mg/dL [facility] Comment: Supplemental ranges: <140 mg/dL before meals <180 mg/dL all other times of the day Blood 08/30/2022 8:59 AM EDT 08/30/2022 8:59 AM EDT Roland Pruett MD POINT [place] [address] * Differential, Automated (08/30/2022 4:05 AM EDT) Pathologist [facility] Neutrophil % 61.4 % [facility] LAB[facility]AT[facility] Neutrophil Absolute 4.26 1.70 - 6.10 x10(3)/[facility] [address] LABORATORY Lymph % 24.7 % [facility] Lymphocytes Abs 1.7 0.9 - 3.2 x10(3)/[facility] [address] LABORATORY Monocyte % 7.6 % [facility] LABORATORY Monocyte Abs 0.5 0.3 - 0.9 x10(3)/[facility] [address] LABORATORY Eos % 4.7 % [facility] LABORATORY Eosinophils Abs 0.3 0.0 - 0.4 x10(3)/[facility] [address] LABORATORY Basophil % 1.2 % [facility] LAB[facility]ATORY Baso Absolute 0.1 0.0 - 0.1 x10(3)/[facility] [address] LABORATORY Immature Gran % 0.40 % [facility] Comment: Immature granulocytes(IG's)percentage and absolute count will include metamyelocytes, myelocytes, and promyelocytes. Blood smears from CBCs yielding IG's will be scanned manually for concordance. If this scan disagrees with the automated IG or if promyelocytes are noted, a manual differential will be performed. Immature Gran Absolute 0.03 0.00 - 0.04 x10(3)/[facility] [address] LABORATORY Blood 08/30/2022 4:05 AM EDT 08/30/2022 4:13 AM EDT Narrative Resulting Agency Comment Spec In Lab Roland Pruett [place] [address] * (ABNORMAL) Hemogram (08/30/2022 4:05 AM EDT) Pathologist [facility] White Blood Cell 7.0 4.0 - 9.5 x10(3)/mc L [facility] Red Blood Cell 3.81(L) 4.00 - 5.21 x10(6)/mc L [facility] Hemoglobin 8.4(L) 11.7 - 15.5 g/dL [facility] Hematocrit 27.8(L) 35.7 - 45.8 % [facility] Mean Cell Volume 73.0(L) 82.6 - 94.4 fL [facility] Mean Cell Hemoglobin 22.0(L) 27.1 - 32.0 pg [facility] Mean Cell Hemoglobin Concentration 30.2(L) 31.7 - 35.0 g/dL [facility] Platelet 407(H) 145 - 357 x10(3)/mc L [facility] RDW Standard Deviation Not Measured 37.0 - 46.0 fL [facility] RDW coefficient of variation Not Measured 11.5 - 14.1 % [facility] Mean Platelet Volume 9.4 7.6 - 12.9 fL [facility] NRBC% auto 0.0 % [facility] LABORATORY NRBC Absolute 0.000 0.000 - 0.000 x10(3)/mc L [facility] Blood 08/30/2022 4:05 AM EDT 08/30/2022 4:13 AM EDT Narrative Resulting Agency Comment Spec In Lab Roland Pruett MD HEMATOLOGY ORDERABLE S [facility] [place] [address] * Phosphorus (08/30/2022 4:05 AM EDT) Phosphorus 3.7 2.5 - 4.5 mg/dL [facility] Blood 08/30/2022 4:05 AM EDT 08/30/2022 4:13 AM EDT Narrative Resulting Agency Comment Spec In Lab Roland Pruett MD CHEMISTRY ORDERABLES [facility] [place] [address] * Magnesium (08/30/2022 4:05 AM EDT) Magnesium 0.90 0.69 - 1.07 mmol/L [facility] Blood 08/30/2022 4:05 AM EDT 08/30/2022 4:13 AM EDT Narrative Resulting Agency Comment Spec In Lab Roland Pruett MD CHEMISTRY ORDERABLES [facility] [place] [address] * (ABNORMAL) Basic Metabolic Panel (non-fasting) (08/30/2022 4:05 AM EDT) Glucose 133 65 - 199 mg/dL [facility] Comment:Diabetes: >=200 mg/d L plus symptoms Blood Urea Nitrogen 19(H) 8 - 18 mg/dL [facility] Creatinine 0.50(L) 0.70 - 1.20 mg/dL [facility] Sodium 140 135 - 145 mmol/L [facility] Potassium 4.1 3.5 - 5.0 mmol/L [facility] Comment: Please note: ??Patients with WBC >100,000 may have falsely elevated Potassium levels. ??For accurate Potassium quantification in these patients send serum separator tube (gold top) for subsequent determinations. ??Contact the Clinical Chemistry Laboratory if there are any questions. Chloride 104 98 - 107 mmol/L [facility] Carbon Dioxide 28 22 - 31 mmol/L [facility] Anion Gap 8 5 - 15 mmol/L [facility] Calcium 9.4 8.5 - 10.5 mg/dL [facility] Est Glomerular Filtration Rate 106 >=60 mL/min/1. 73 m?? [facility] Comment: This patient's estimated GFR was [...] Pruett MD CHEMISTRY ORDERABLES Performing Organization Address [facility] Co de Phone Number [facility] [address] * POCT Glucose (08/30/2022 4:00 AM EDT) Glucose, POC 128 65 - 199 mg/dL [facility] Comment: Supplemental ranges: <140 mg/dL before meals <180 mg/dL all other times of the day Blood 08/30/2022 4:00 AM EDT 08/30/2022 4:00 AM EDT Roland Pruett MD POINT OF CARE TEST O RDERABLES Performing Organization Address [facility] Co de Phone Number [facility] [address] * POCT Glucose (08/29/2022 11:58 PM EDT) Glucose, POC 155 65 - 199 mg/dL [facility] Comment: Supplemental ranges: <140 mg/dL before meals <180 mg/dL all other times of the day Blood 08/29/2022 11:5 8 PM EDT 08/29/2022 11:58 PM EDT Roland Pruett MD POINT OF CARE TEST O RDERABLES Performing Organization Address [facility] Co de Phone Number [facility] [address] * POCT Glucose (08/29/2022 8:16 PM EDT) Glucose, POC 146 65 - 199 mg/dL [facility] Comment: Supplemental ranges: <140 mg/dL before meals <180 mg/dL all other times of the day Blood 08/29/2022 8:16 PM EDT 08/29/2022 8:16 PM EDT Roland Pruett MD POINT OF CARE TEST O RDERABLES [facility] [address] * POCT Glucose (08/29/2022 4:08 PM EDT) Glucose, POC 194 65 - 199 mg/dL [facility] Comment: Supplemental ranges: <140 mg/dL before meals <180 mg/dL all other times of the day Blood 08/29/2022 4:08 PM EDT 08/29/2022 4:08 PM EDT Roland Pruett MD POINT OF CARE TEST O RDERABLES Performing Organization Address [facility] Co de Phone Number [facility] [address] * Valproic Acid Level, Total (08/29/2022 11:35 AM EDT) Valproic Acid 25 mg/L [facility] Comment: Therapeutic Range: Anticonvulsant Therapy: ??50-100 mg/L Manic Episodes Associated with Bipolar Disorder: ??50-125 mg/L Blood 08/29/2022 11:3 5 AM EDT 08/29/2022 11:44 AM EDT Narrative Resulting Agency Comment Spec In Lab Roland Pruett MD CHEMISTRY ORDERABLES Performing Organization Address [facility] de Phone Number [facility] [address] * (ABNORMAL) POCT Glucose (08/29/2022 11:34 AM EDT) Glucose, POC 209(H) 65 - 199 mg/dL [facility] Comment: Supplemental ranges: <140 mg/dL before meals <180 mg/dL all other times of the day Blood 08/29/2022 11:3 4 AM EDT 08/29/2022 11:34 AM EDT Roland Pruett MD POINT OF CARE TEST O RDERABLES Performing Organization Address [facility] [place] [place] [address] * Differential, Automated (08/29/2022 9:30 AM EDT) Pathologist [facility] Neutrophil % 72.4 % [facility] Neutrophil Absolute 5.42 1.70 - 6.10 x10(3)/[facility] [address] LABORATORY Lymph % 16.8 % [facility] Lymphocytes Abs 1.3 0.9 - 3.2 x10(3)/[facility] [address] LABORATORY Monocyte % 6.5 % [facility] LABORATORY Monocyte Abs 0.5 0.3 - 0.9 x10(3)/[facility] [address] LABORATORY Eos % 3.2 % [facility] Eosinophils Abs 0.2 0.0 - 0.4 x10(3)/[facility] [address] LABORATORY Basophil % 0.8 % [facility] Baso Absolute 0.1 0.0 - 0.1 x10(3)/[facility] [address] LABORATORY Immature Gran % 0.30 % [facility] Comment: Immature granulocytes(IG's)percentage and absolute count will include metamyelocytes, myelocytes, and promyelocytes. Blood smears from CBCs yielding IG's will be scanned manually for concordance. If this scan disagrees with the automated IG or if promyelocytes are noted, a manual differential will be performed. Immature Gran Absolute 0.02 0.00 - 0.04 x10(3)/[facility] [address] LABORATORY Blood 08/29/2022 9:30 AM EDT 08/29/2022 9:31 AM EDT Narrative Resulting Agency Comment Spec In Lab Tyler Cobb [place] [address] * (ABNORMAL) Hemogram (08/29/2022 9:30 AM EDT) [facility] White Blood Cell 7.5 4.0 - 9.5 x10(3)/mc L [facility] Red Blood Cell 4.01 4.00 - 5.21 x10(6)/[facility] LABORATORY Comment:Dimorphic RBC popula tion. Hemoglobin 8.7(L) 11.7 - 15.5 g/dL [facility] Hematocrit 28.5(L) 35.7 - 45.8 % [facility] Mean Cell Volume 71.1(L) 82.6 - 94.4 fL [facility] Mean Cell Hemoglobin 21.7(L) 27.1 - 32.0 pg [facility] Mean Cell Hemoglobin Concentration 30.5(L) 31.7 - 35.0 g/dL [facility] Platelet 448(H) 145 - 357 x10(3)/mc L [facility] RDW Standard Deviation Not Measured 37.0 - 46.0 fL [facility] RDW coefficient of variation Not Measured 11.5 - 14.1 % [facility] Mean Platelet Volume 9.5 7.6 - 12.9 fL [facility] NRBC% auto 0.0 % [facility] LABORATORY NRBC Absolute 0.000 0.000 - 0.000 x10(3)/mc L [facility] Blood 08/29/2022 9:30 AM EDT 08/29/2022 9:31 AM EDT Narrative Resulting Agency Comment Spec In Lab Tyler Cobb MD HEMATOLOGY ORDERABLE S [facility] [place] [address] * Phosphorus (08/29/2022 9:30 AM EDT) Phosphorus 3.4 2.5 - 4.5 mg/dL [facility] Blood 08/29/2022 9:30 AM EDT 08/29/2022 9:31 AM EDT Narrative Resulting Agency Comment Spec In Lab Richard Pascal MD CHEMISTRY ORDERABLES Performing Organization Address City/[facility]/ZIP Co de Phone Number [facility] [place] [address] * Magnesium (08/29/2022 9:30 AM EDT) Magnesium 0.81 0.69 - 1.07 mmol/L [facility] Blood 08/29/2022 9:30 AM EDT 08/29/2022 9:31 AM EDT Narrative Resulting Agency Comment Spec In Lab Richard Pascal MD CHEMISTRY ORDERABLES [facility] [address] * (ABNORMAL) Basic Metabolic Panel (non-fasting) (08/29/2022 9:30 AM EDT) Glucose 289(H) 65 - 199 mg/dL [facility] Comment:Diabetes: >=200 mg/d L plus symptoms Blood Urea Nitrogen 19(H) 8 - 18 mg/dL [facility] Creatinine 0.47(L) 0.70 - 1.20 mg/dL [facility] Sodium 137 135 - 145 mmol/L [facility] Potassium 4.4 3.5 - 5.0 mmol/L [facility] Comment: Please note: ??Patients with WBC >100,000 may have falsely elevated Potassium levels. ??For accurate Potassium quantification in these patients send serum separator tube (gold top) for subsequent determinations. ??Contact the Clinical Chemistry Laboratory if there are any questions. Chloride 103 98 - 107 mmol/L [facility] Carbon Dioxide 25 22 - 31 mmol/L [facility] Anion Gap 9 5 - 15 mmol/L [facility] Calcium 9.2 8.5 - 10.5 mg/dL [facility] Est Glomerular Filtration Rate 108 >=60 mL/min/1. 73 m?? [facility] Comment: This patient's estimated GFR was [...] Pascal MD CHEMISTRY ORDERABLES Performing Organization Address City/[facility]/ZIP Co de Phone Number [facility] [address] * (ABNORMAL) POCT Glucose (08/29/2022 9:13 AM EDT) Glucose, POC 279(H) 65 - 199 mg/dL [facility] Comment: Supplemental ranges: <140 mg/dL before meals <180 mg/dL all other times of the day Blood 08/29/2022 9:13 AM EDT 08/29/2022 9:13 AM EDT Roland Pruett MD POINT OF CARE TEST O RDERABLES Performing Organization Address [facility] Co de Phone Number [facility] [address] * Lipid Panel (Reflex Direct LDL) (08/29/2022 4:48 AM EDT) Cholesterol, Total 110 mg/dL [facility] Comment: Lower Risk: <200 mg/dL Average Risk: 200-239 mg/dL Higher Risk: >yh=920 mg/dL Triglyceride 127 mg/dL [facility] Comment: Average Risk/Lower Risk: <150 mg/dL Borderline High Risk: 150-199 mg/dL High Risk: 200-499 mg/dL Very High Risk: >dl=780 mg/dL HDL Cholesterol 34 mg/dL [facility] Comment: Males: ?? Higher Risk: <40 mg/dL Females: ?? Higher Risk: <50 mg/dL LDL Cholesterol 51 mg/dL [facility] Comment: Lowest Risk: <100 mg/dL Lower Risk: 100-129 mg/dL Borderline High Risk: 130-159 mg/dL High Risk: 160-189 mg/dL Very High Risk: >vi=768 mg/dL Cholesterol/HDL Ratio 3.2 ratio [facility] Lipid Interpretation See Note [facility] Comment: Lipid management should be guided by a patient? s ASCVD risk, goals and preferences. ACC/AHA Guidelines recommend high intensity statin if clinical ASCVD or LDL greater than or equal to 190 mg/dL. http://[employer] Dash[employer].com/RXR-EBG-Nugtoenyv Adults aged 40-75 with LDL 70-189 mg/dL should have their 10 year ASCVD risk estimated with the ACC/AHA ASCVD risk orientation and mobility instructor http://tools.acc.org/MRQIR-Teke-Uhydrnfor/ Statin should be discussed if risk greater [...] Hernandez MD CHEMISTRY ORDERABLES Performing Organization Address City/[facility]/ZIP Co de Phone Number [facility] [address] * Valproic Acid Level, Total (08/29/2022 4:48 AM EDT) Valproic Acid 29 mg/L [facility] Comment: Therapeutic Range: Anticonvulsant Therapy: ??50-100 mg/L Manic Episodes Associated with Bipolar Disorder: ??50-125 mg/L Blood 08/29/2022 4:48 AM EDT 08/29/2022 4:58 AM EDT Narrative Resulting Agency Comment Spec In Lab Milagros Hernandez MD CHEMISTRY ORDERABLES Performing Organization Address City/[facility] Co de Phone Number [facility] [address] * POCT Glucose (08/29/2022 3:53 AM EDT) Glucose, POC 152 65 - 199 mg/dL [facility] Comment: Supplemental ranges: <140 mg/dL before meals <180 mg/dL all other times of the day Blood 08/29/2022 3:53 AM EDT 08/29/2022 3:53 AM EDT Milagros Hernandez MD POINT OF CARE TEST O GABRIELLA Performing Organization Address [facility] Co de Phone Number [facility] [address] * POCT Glucose (08/29/2022 12:13 AM EDT) Glucose, POC 153 65 - 199 mg/dL [facility] Comment: Supplemental ranges: <140 mg/dL before meals <180 mg/dL all other times of the day Blood 08/29/2022 12:1 3 AM EDT 08/29/2022 12:13 AM EDT Milagros Hernandez MD POINT OF CARE TEST O GABRIELLA Performing Organization Address [facility] Co de Phone Number [facility] [address] * (ABNORMAL) POCT Glucose (08/28/2022 7:38 PM EDT) Glucose, POC 211(H) 65 - 199 mg/dL [facility] Comment: Supplemental ranges: <140 mg/dL before meals <180 mg/dL all other times of the day Blood 08/28/2022 7:38 PM EDT 08/28/2022 7:38 PM EDT Milagros Hernandez MD POINT OF CARE TEST O GABRIELLA Performing Organization Address [facility] Co de Phone Number [facility] [address] * POCT Glucose (08/28/2022 4:33 PM EDT) Glucose, POC 196 65 - 199 mg/dL [facility] Comment: Supplemental ranges: <140 mg/dL before meals <180 mg/dL all other times of the day Blood 08/28/2022 4:33 PM EDT 08/28/2022 4:33 PM EDT Milagros Hernandez MD POINT OF CARE TEST O RDERABLES Performing Organization Address City/[facility]/[place] [address] * (ABNORMAL) POCT Glucose (08/28/2022 12:06 PM EDT) Glucose, POC 221(H) 65 - 199 mg/dL [facility] Comment: Supplemental ranges: <140 mg/dL before meals <180 mg/dL all other times of the day Blood 08/28/2022 12:0 6 PM EDT 08/28/2022 12:06 PM EDT Milagros Hernandez MD POINT OF CARE TEST O RDERABLES Performing Organization Address [facility] Co de Phone Number [facility] [place] [address] * Differential, Automated (08/28/2022 7:00 AM EDT) Neutrophil % 65.3 % [facility] Neutrophil Absolute 5.85 1.70 - 6.10 x10(3)/[facility] [address] LABORATORY Lymph % 23.3 % [facility] Lymphocytes Abs 2.1 0.9 - 3.2 x10(3)/[facility] [address] LABORATORY Monocyte % 6.8 % [facility] Monocyte Abs 0.6 0.3 - 0.9 x10(3)/[facility] [address] LABORATORY Eos % 3.3 % [facility] Eosinophils Abs 0.3 0.0 - 0.4 x10(3)/[facility] [address] LABORATORY Basophil % 0.9 % [facility] Baso Absolute 0.1 0.0 - 0.1 x10(3)/[facility] [address] LABORATORY Immature Gran % 0.40 % [facility] Comment: Immature granulocytes(IG's)percentage and absolute count will include metamyelocytes, myelocytes, and promyelocytes. Blood smears from CBCs yielding IG's will be scanned manually for concordance. If this scan disagrees with the automated IG or if promyelocytes are noted, a manual differential will be performed. Immature Gran Absolute 0.04 0.00 - 0.04 x10(3)/mcL [facility] Blood 08/28/2022 7:00 AM EDT 08/28/2022 7:04 AM EDT Narrative Resulting Agency Comment Spec In Lab Tyler Cobb MD HEMATOLOGY ORDERABLE S [facility] [address] * (ABNORMAL) Hemogram (08/28/2022 7:00 AM EDT) White Blood Cell 9.0 4.0 - 9.5 x10(3)/mc L [facility] Red Blood Cell 3.90(L) 4.00 - 5.21 x10(6)/mc L [facility] Comment:Dimorphic RBC popula tion. Hemoglobin 8.6(L) 11.7 - 15.5 g/dL [facility] Hematocrit 27.4(L) 35.7 - 45.8 % [facility] Mean Cell Volume 70.3(L) 82.6 - 94.4 fL [facility] Mean Cell Hemoglobin 22.1(L) 27.1 - 32.0 pg [facility] Mean Cell Hemoglobin Concentration 31.4(L) 31.7 - 35.0 g/dL [facility] Platelet 464(H) 145 - 357 x10(3)/mc L [facility] RDW Standard Deviation Not Measured 37.0 - 46.0 fL [facility] RDW coefficient of variation Not Measured 11.5 - 14.1 % [facility] Mean Platelet Volume 9.5 7.6 - 12.9 fL [facility] NRBC% auto 0.0 % [facility] NRBC Absolute 0.000 0.000 - 0.000 x10(3)/mc L [facility] Blood 08/28/2022 7:00 AM EDT 08/28/2022 7:04 AM EDT Narrative Resulting Agency Comment Spec In Lab Tyler Cobb MD HEMATOLOGY ORDERABLE S [facility] [address] * (ABNORMAL) Phosphorus (08/28/2022 7:00 AM EDT) Phosphorus 4.6(H) 2.5 - 4.5 mg/dL [facility] Blood 08/28/2022 7:00 AM EDT 08/28/2022 7:04 AM EDT Narrative Resulting Agency Comment Spec In Lab Richard Pascal MD CHEMISTRY ORDERABLES Performing Organization Address [facility] Co de Phone Number [facility] [address] * Magnesium (08/28/2022 7:00 AM EDT) Magnesium 0.87 0.69 - 1.07 mmol/L [facility] Blood 08/28/2022 7:00 AM EDT 08/28/2022 7:04 AM EDT Narrative Resulting Agency Comment Spec In Lab Richard Pascal MD CHEMISTRY ORDERABLES Performing Organization Address [facility] Co de Phone Number [facility] [address] * (ABNORMAL) Basic Metabolic Panel (non-fasting) (08/28/2022 7:00 AM EDT) Glucose 113 65 - 199 mg/dL [facility] Comment:Diabetes: >=200 mg/d L plus symptoms Blood Urea Nitrogen 15 8 - 18 mg/dL [facility] Creatinine 0.46(L) 0.70 - 1.20 mg/dL [facility] Sodium 141 135 - 145 mmol/L [facility] Potassium 4.2 3.5 - 5.0 mmol/L [facility] Comment: Please note: ??Patients with WBC >100,000 may have falsely elevated Potassium levels. ??For accurate Potassium quantification in these patients send serum separator tube (gold top) for subsequent determinations. ??Contact the Clinical Chemistry Laboratory if there are any questions. Chloride 105 98 - 107 mmol/L [facility] Carbon Dioxide 27 22 - 31 mmol/L [facility] Anion Gap 9 5 - 15 mmol/L [facility] Calcium 9.4 8.5 - 10.5 mg/dL [facility] Est Glomerular Filtration Rate 108 >=60 mL/min/1. 73 m?? [facility] Comment: This patient's estimated GFR was [...] In Lab Richard Pascal MD CHEMISTRY ORDERABLES [facility] [address] * POCT Glucose (08/28/2022 4:59 AM EDT) Glucose, POC 96 65 - 199 mg/dL [facility] Comment: Supplemental ranges: <140 mg/dL before meals <180 mg/dL all other times of the day Blood 08/28/2022 4:59 AM EDT 08/28/2022 4:59 AM EDT Milagros Hernandez MD POINT OF CARE TEST O RDERABLES [facility] [address] * POCT Glucose (08/28/2022 12:08 AM EDT) Glucose, POC 91 65 - 199 mg/dL [facility] Comment: Supplemental ranges: <140 mg/dL before meals <180 mg/dL all other times of the day Blood 08/28/2022 12:0 8 AM EDT 08/28/2022 12:08 AM EDT Milagros Hernandez MD POINT OF CARE TEST O RDERABLES Performing Organization Address City/[facility] Co de Phone Number [facility] [address] * POCT Glucose (08/27/2022 9:50 PM EDT) Glucose, POC 140 65 - 199 mg/dL [facility] Comment: Supplemental ranges: <140 mg/dL before meals <180 mg/dL all other times of the day Blood 08/27/2022 9:50 PM EDT 08/27/2022 9:50 PM EDT Milagros Hernandez MD POINT OF CARE TEST O RDERABLES Performing Organization Address [facility] Co de Phone Number [facility] [address] * Potassium (08/27/2022 6:00 PM EDT) Potassium 4.0 3.5 - 5.0 mmol/L [facility] Comment: Please note: ??Patients with WBC [...] Pascal MD CHEMISTRY ORDERABLES Performing Organization Address City/[facility] Co de Phone Number [facility] [address] * POCT Glucose (08/27/2022 4:55 PM EDT) Glucose, POC 149 65 - 199 mg/dL [facility] Comment: Supplemental ranges: <140 mg/dL before meals <180 mg/dL all other times of the day Blood 08/27/2022 4:55 PM EDT 08/27/2022 4:55 PM EDT Milagros Hernandez MD POINT OF CARE TEST O RDERAREYMUNDO Performing Organization Address [facility] Co de Phone Number [facility] [address] * Potassium (08/27/2022 1:55 PM EDT) Potassium 4.3 3.5 - 5.0 mmol/L [facility] Comment: Please note: ??Patients with WBC [...] Pascal MD CHEMISTRY ORDERABLES Performing Organization Address [facility] Co de Phone Number [facility] [address] * POCT Glucose (08/27/2022 11:32 AM EDT) Glucose, POC 141 65 - 199 mg/dL [facility] Comment: Supplemental ranges: <140 mg/dL before meals <180 mg/dL all other times of the day Blood 08/27/2022 11:3 2 AM EDT 08/27/2022 11:32 AM EDT Milagros Hernandez MD POINT OF CARE TEST O GABRIELLA Performing Organization Address [facility] Co de Phone Number [facility] [address] * Potassium (08/27/2022 9:50 AM EDT) Potassium 4.4 3.5 - 5.0 mmol/L [facility] Comment: Please note: ??Patients with WBC >100,000 may have falsely elevated Potassium levels. ??For accurate Potassium quantification in these patients send serum separator tube (gold top) for subsequent determinations. ??Contact the Clinical Chemistry Laboratory if there are any questions. Blood 08/27/2022 9:50 AM EDT 08/27/2022 10:05 AM EDT Narrative Resulting Agency Comment Spec In Lab Richard Pascal MD CHEMISTRY ORDERABLES [facility] [address] * CT Chest wo Contrast (Generic) (08/27/2022 [...] who have questions please contact the health coronary care unit nurse that requested your imaging [...] patients who have questions please contactthe health coronary care unit nurse that requested your imaging first. Milagros Hernandez [...] who have questions please contact the health coronary care unit nurse that requested your imaging first. ? Narrative 08/27/2022 11:39 AM EDT EXAMINATION: CT [...] patients who have questions please contactthe health coronary care unit nurse that requested your imaging first. Milagros Hernandez MD IMG CT ORDERABLES * POCT Glucose (08/27/2022 7:38 AM EDT) Glucose, POC 114 65 - 199 mg/dL [facility] Comment: Supplemental ranges: <140 mg/dL before meals <180 mg/dL all other times of the day Blood 08/27/2022 7:38 AM EDT 08/27/2022 7:38 AM EDT Milagros Hernandez MD POINT OF CARE TEST O RDERABLES [facility] [address] * (ABNORMAL) Differential, Automated (08/27/2022 5:40 AM EDT) Pathologist [facility] Neutrophil % 69.4 % [facility] Neutrophil Absolute 6.61(H) 1.70 - 6.10 x10(3)/[facility] LABORATORY Lymph % 18.6 % [facility] Lymphocytes Abs 1.8 0.9 - 3.2 x10(3)/[facility] Monocyte % 7.7 % [facility] Monocyte Abs 0.7 0.3 - 0.9 x10(3)/[facility] Eos % 3.2 % [facility] Eosinophils Abs 0.3 0.0 - 0.4 x10(3)/[facility] Basophil % 0.7 % [facility] Baso Absolute 0.1 0.0 - 0.1 x10(3)/mc L [facility] Immature Gran % 0.40 % [facility] Comment: Immature granulocytes(IG's)percentage and absolute count will include metamyelocytes, myelocytes, and promyelocytes. Blood smears from CBCs yielding IG's will be scanned manually for concordance. If this scan disagrees with the automated IG or if promyelocytes are noted, a manual differential will be performed. Immature Gran Absolute 0.04 0.00 - 0.04 x10(3)/mc L [facility] Blood 08/27/2022 5:40 AM EDT 08/27/2022 5:44 AM EDT Narrative Resulting Agency Comment Spec In Lab Tyler Cobb MD HEMATOLOGY ORDERABLE S [facility] [address] * (ABNORMAL) Hemogram (08/27/2022 5:40 AM EDT) White Blood Cell 9.5 4.0 - 9.5 x10(3)/[facility] LAB[facility]AT[facility] Red Blood Cell 3.92(L) 4.00 - 5.21 x10(6)/[facility] Comment:Dimorphic RBC popula tion. Hemoglobin 8.6(L) 11.7 - 15.5 g/dL [facility] Hematocrit 27.7(L) 35.7 - 45.8 % [facility] Mean Cell Volume 70.7(L) 82.6 - 94.4 fL [facility] Mean Cell Hemoglobin 21.9(L) 27.1 - 32.0 pg [facility] Mean Cell Hemoglobin Concentration 31.0(L) 31.7 - 35.0 g/dL [facility] Platelet 528(H) 145 - 357 x10(3)/[facility]AT[facility] RDW Standard Deviation Not Measured 37.0 - 46.0 fL [facility] RDW coefficient of variation Not Measured 11.5 - 14.1 % [facility] Mean Platelet Volume 9.7 7.6 - 12.9 fL [facility] NRBC% auto 0.0 % [facility] NRBC Absolute 0.000 0.000 - 0.000 x10(3)/[facility] Blood 08/27/2022 5:40 AM EDT 08/27/2022 5:44 AM EDT Narrative Resulting Agency Comment Spec In Lab Tyler Cobb MD HEMATOLOGY ORDERABLE S Performing Organization Address City/[facility]/ZIP Co de Phone Number [facility] [address] * Phosphorus (08/27/2022 5:40 AM EDT) Phosphorus 3.7 2.5 - 4.5 mg/dL [facility] Blood 08/27/2022 5:40 AM EDT 08/27/2022 5:44 AM EDT Narrative Resulting Agency Comment Spec In Lab Richard Pascal MD CHEMISTRY ORDERABLES Performing Organization Address City/[facility] Co de Phone Number [facility] [address] * Magnesium (08/27/2022 5:40 AM EDT) Magnesium 0.85 0.69 - 1.07 mmol/L [facility] Blood 08/27/2022 5:40 AM EDT 08/27/2022 5:44 AM EDT Narrative Resulting Agency Comment Spec In Lab Richard Pascal MD CHEMISTRY ORDERABLES Performing Organization Address [facility] de Phone Number [facility] [address] * (ABNORMAL) Basic Metabolic Panel (non-fasting) (08/27/2022 5:40 AM EDT) Pathologist [facility] Glucose 130 65 - 199 mg/dL [facility] Comment:Diabetes: >=200 mg/d L plus symptoms Blood Urea Nitrogen 15 8 - 18 mg/dL [facility] Creatinine 0.44(L) 0.70 - 1.20 mg/dL [facility] Sodium 139 135 - 145 mmol/L [facility] Potassium 4.4 3.5 - 5.0 mmol/L [facility] Comment: Please note: ??Patients with WBC >100,000 may have falsely elevated Potassium levels. ??For accurate Potassium quantification in these patients send serum separator tube (gold top) for subsequent determinations. ??Contact the Clinical Chemistry Laboratory if there are any questions. Chloride 106 98 - 107 mmol/L [facility] Carbon Dioxide 27 22 - 31 mmol/L [facility] Anion Gap 6 5 - 15 mmol/L [facility] Calcium 9.3 8.5 - 10.5 mg/dL [facility] Est Glomerular Filtration Rate 109 >=60 mL/min/1. 73 m?? [facility] Comment: This patient's estimated GFR was [...] Pascal MD CHEMISTRY ORDERABLES Performing Organization Address [facility] Co de Phone Number [facility] [address] * POCT Glucose (08/27/2022 5:19 AM EDT) Glucose, POC 124 65 - 199 mg/dL [facility] Comment: Supplemental ranges: <140 mg/dL before meals <180 mg/dL all other times of the day Blood 08/27/2022 5:19 AM EDT 08/27/2022 5:19 AM EDT Milagros Hernandez MD POINT OF CARE TEST O RDERABLES [facility] [place] [address] * POCT Glucose (08/26/2022 11:27 PM EDT) Glucose, POC 162 65 - 199 mg/dL [facility] Comment: Supplemental ranges: <140 mg/dL before meals <180 mg/dL all other times of the day Blood 08/26/2022 11:2 7 PM EDT 08/26/2022 11:27 PM EDT Milagros Hernandez MD POINT OF CARE TEST O RDERABLES [facility] [place] [address] * POCT Glucose (08/26/2022 8:05 PM EDT) Glucose, POC 138 65 - 199 mg/dL [facility] Comment: Supplemental ranges: <140 mg/dL before meals <180 mg/dL all other times of the day Blood 08/26/2022 8:05 PM EDT 08/26/2022 8:05 PM EDT Milagros Hernandez MD POINT OF CARE TEST O RDERABLES Performing Organization Address [facility] Co de Phone Number [facility] [address] * POCT Glucose (08/26/2022 4:51 PM EDT) Glucose, POC 111 65 - 199 mg/dL [facility] Comment: Supplemental ranges: <140 mg/dL before meals <180 mg/dL all other times of the day Blood 08/26/2022 4:51 PM EDT 08/26/2022 4:51 PM EDT Milagros Hernandez MD POINT OF CARE TEST O RDERABLES Performing Organization Address City/[facility]/ZIP Co de Phone Number [facility] [address] * POCT Glucose (08/26/2022 1:13 PM EDT) Glucose, POC 151 65 - 199 mg/dL [facility] Comment: Supplemental ranges: <140 mg/dL before meals <180 mg/dL all other times of the day Blood 08/26/2022 1:13 PM EDT 08/26/2022 1:13 PM EDT Milagros Hernandez MD POINT OF CARE TEST O RDERABLES [facility] [address] * POCT Glucose (08/26/2022 11:28 AM EDT) Glucose, POC 130 65 - 199 mg/dL [facility] Comment: Supplemental ranges: <140 mg/dL before meals <180 mg/dL all other times of the day Blood 08/26/2022 11:2 8 AM EDT 08/26/2022 11:28 AM EDT Milagros Hernandez MD POINT OF CARE TEST O RDERABLES [facility] [place] [address] * (ABNORMAL) POCT Glucose (08/26/2022 7:58 AM EDT) Glucose, POC 202(H) 65 - 199 mg/dL [facility] Comment: Supplemental ranges: <140 mg/dL before meals <180 mg/dL all other times of the day Blood 08/26/2022 7:58 AM EDT 08/26/2022 7:58 AM EDT Milagros Hernandez MD POINT OF CARE TEST O RDERAREYMUNDO Performing Organization Address City/[facility]/ZIP Co de Phone Number [facility] [address] * POCT Glucose (08/26/2022 4:42 AM EDT) Glucose, POC 160 65 - 199 mg/dL [facility] Comment: Supplemental ranges: <140 mg/dL before meals <180 mg/dL all other times of the day Blood 08/26/2022 4:42 AM EDT 08/26/2022 4:42 AM EDT Milagros Hernandez MD POINT OF CARE TEST O RDERABLES [facility] [address] * (ABNORMAL) Differential, Automated (08/26/2022 12:22 AM EDT) Neutrophil % 67.5 % [facility] Neutrophil Absolute 6.01 1.70 - 6.10 x10(3)/[facility] Lymph % 18.8 % [facility] Lymphocytes Abs 1.7 0.9 - 3.2 x10(3)/[facility] Monocyte % 8.9 % [facility] Monocyte Abs 0.8 0.3 - 0.9 x10(3)/[facility] Eos % 3.3 % [facility] Eosinophils Abs 0.3 0.0 - 0.4 x10(3)/[facility] Basophil % 0.7 % [facility] Baso Absolute 0.1 0.0 - 0.1 x10(3)/[facility] Immature Gran % 0.80 % [facility] Comment: Immature granulocytes(IG's)percentage and absolute count will include metamyelocytes, myelocytes, and promyelocytes. Blood smears from CBCs yielding IG's will be scanned manually for concordance. If this scan disagrees with the automated IG or if promyelocytes are noted, a manual differential will be performed. Immature Gran Absolute 0.07(H) 0.00 - 0.04 x10(3)/[facility] Blood 08/26/2022 12:2 2 AM EDT 08/26/2022 12:30 AM EDT Narrative Resulting Agency Comment Spec In Lab Tyler Cobb MD HEMATOLOGY ORDERABLE S [facility] [address] * (ABNORMAL) Hemogram (08/26/2022 12:22 AM EDT) White Blood Cell 8.9 4.0 - 9.5 x10(3)/[facility] Red Blood Cell 3.80(L) 4.00 - 5.21 x10(6)/[facility] Comment:Dimorphic RBC popula tion. Hemoglobin 8.3(L) 11.7 - 15.5 g/dL [facility] Hematocrit 26.6(L) 35.7 - 45.8 % [facility] Mean Cell Volume 70.0(L) 82.6 - 94.4 fL [facility] Mean Cell Hemoglobin 21.8(L) 27.1 - 32.0 pg [facility] Mean Cell Hemoglobin Concentration 31.2(L) 31.7 - 35.0 g/dL [facility] Platelet 456(H) 145 - 357 x10(3)/mc L [facility] RDW Standard Deviation Not Measured 37.0 - 46.0 fL [facility] RDW coefficient of variation Not Measured 11.5 - 14.1 % [facility] Mean Platelet Volume 9.9 7.6 - 12.9 fL [facility] NRBC% auto 0.0 % [facility] NRBC Absolute 0.000 0.000 - 0.000 x10(3)/mc L [facility] Blood 08/26/2022 12:2 2 AM EDT 08/26/2022 12:30 AM EDT Narrative Resulting Agency Comment Spec In Lab Tyler Cobb MD HEMATOLOGY ORDERABLE S Performing Organization Address City/State/[facility] Co de Phone Number [facility] [address] * (ABNORMAL) Basic Metabolic Panel (non-fasting) (08/26/2022 12:22 AM EDT) Glucose 195 65 - 199 mg/dL [facility] Comment:Diabetes: >=200 mg/d L plus symptoms Blood Urea Nitrogen 12 8 - 18 mg/dL [facility] Creatinine 0.38(L) 0.70 - 1.20 mg/dL [facility] Sodium 137 135 - 145 mmol/L [facility] Potassium 4.0 3.5 - 5.0 mmol/L [facility] Comment: Please note: ??Patients with WBC >100,000 may have falsely elevated Potassium levels. ??For accurate Potassium quantification in these patients send serum separator tube (gold top) for subsequent determinations. ??Contact the Clinical Chemistry Laboratory if there are any questions. Chloride 105 98 - 107 mmol/L [facility] Carbon Dioxide 25 22 - 31 mmol/L [facility] Anion Gap 7 5 - 15 mmol/L [facility] Calcium 9.0 8.5 - 10.5 mg/dL [facility] Est Glomerular Filtration Rate 113 >=60 mL/min/1. 73 m?? [facility] Comment: This patient's estimated GFR was [...] Pascal MD CHEMISTRY ORDERABLES Performing Organization Address City/[facility] Co de Phone Number [facility] [address] * Phosphorus (08/26/2022 12:22 AM EDT) Phosphorus 2.8 2.5 - 4.5 mg/dL [facility] Blood 08/26/2022 12:2 2 AM EDT 08/26/2022 12:30 AM EDT Narrative Resulting Agency Comment Spec In Lab Richard Pascal MD CHEMISTRY ORDERABLES Performing Organization Address [facility]/ZIP Co de Phone Number [facility] [address] * Magnesium (08/26/2022 12:22 AM EDT) Magnesium 0.76 0.69 - 1.07 mmol/L [facility] Blood 08/26/2022 12:2 2 AM EDT 08/26/2022 12:30 AM EDT Narrative Resulting Agency Comment Spec In Lab Richard Pascal MD CHEMISTRY ORDERABLES [facility] [place] [address] * POCT Glucose (08/26/2022 12:19 AM EDT) Glucose, POC 188 65 - 199 mg/dL [facility] Comment: Supplemental ranges: <140 mg/dL before meals <180 mg/dL all other times of the day Blood 08/26/2022 12:1 9 AM EDT 08/26/2022 12:19 AM EDT Milagros Hernandez MD POINT OF CARE TEST O RDERABLES Performing Organization Address [facility] Co de Phone Number [facility] [address] * POCT Glucose (08/25/2022 7:47 PM EDT) Glucose, POC 182 65 - 199 mg/dL [facility] Comment: Supplemental ranges: <140 mg/dL before meals <180 mg/dL all other times of the day Blood 08/25/2022 7:47 PM EDT 08/25/2022 7:47 PM EDT Milagros Hernandez MD POINT OF CARE TEST O RDERABLES Performing Organization Address [facility] Hospital/[facility] Co de Phone Number [facility] [place] [address] * POCT Glucose (08/25/2022 4:31 PM EDT) Glucose, POC 156 65 - 199 mg/dL [facility] Comment: Supplemental ranges: <140 mg/dL before meals <180 mg/dL all other times of the day Blood 08/25/2022 4:31 PM EDT 08/25/2022 4:31 PM EDT Milagros Hernandez MD POINT OF CARE TEST O RDERABLES [facility] [place] [address] * POCT Glucose (08/25/2022 3:08 PM EDT) Glucose, POC 113 65 - 199 mg/dL [facility] Comment: Supplemental ranges: <140 mg/dL before meals <180 mg/dL all other times of the day Blood 08/25/2022 3:08 PM EDT 08/25/2022 3:08 PM EDT Milagros Hernandze MD POINT OF CARE TEST O RDERABLES [facility] [address] * POCT Glucose (08/25/2022 2:09 PM EDT) Glucose, POC 146 65 - 199 mg/dL [facility] Comment: Supplemental ranges: <140 mg/dL before meals <180 mg/dL all other times of the day Blood 08/25/2022 2:09 PM EDT 08/25/2022 2:09 PM EDT Milagros Hernandez MD POINT OF CARE TEST O RDERABLES Performing Organization Address City/[facility]/ZIP Co de Phone Number [facility] [address] * POCT Glucose (08/25/2022 12:44 PM EDT) Glucose, POC 197 65 - 199 mg/dL [facility] Comment: Supplemental ranges: <140 mg/dL before meals <180 mg/dL all other times of the day Blood 08/25/2022 12:4 4 PM EDT 08/25/2022 12:44 PM EDT Milagros Hernandez MD POINT OF CARE TEST O RDERABLES [facility] [address] * (ABNORMAL) POCT Glucose (08/25/2022 12:25 PM EDT) Glucose, POC 212(H) 65 - 199 mg/dL [facility] Comment: Supplemental ranges: <140 mg/dL before meals <180 mg/dL all other times of the day Blood 08/25/2022 12:2 5 PM EDT 08/25/2022 12:25 PM EDT Milagros Hernandez MD POINT OF CARE TEST O GABRIELLA Performing Organization Address City/[facility] Co de Phone Number [facility] [address] * Valproic Acid Level, Total (08/25/2022 11:28 AM EDT) Valproic Acid 21 mg/L [facility] Comment: Therapeutic Range: Anticonvulsant Therapy: ??50-100 mg/L Manic Episodes Associated with Bipolar Disorder: ??50-125 mg/L Blood 08/25/2022 11:2 8 AM EDT 08/25/2022 11:34 AM EDT Narrative Resulting Agency Comment Spec In Lab Milagros Hernandez MD CHEMISTRY ORDERABLES Performing Organization Address [facility] Co de Phone Number [facility] [address] * POCT Glucose (08/25/2022 11:09 AM EDT) Glucose, POC 185 65 - 199 mg/dL [facility] Comment: Supplemental ranges: <140 mg/dL before meals <180 mg/dL all other times of the day Blood 08/25/2022 11:0 9 AM EDT 08/25/2022 11:09 AM EDT Milagros Hernandez MD POINT OF CARE TEST O RDAV Performing Organization Address [facility] Co de Phone Number [facility] [address] * POCT Glucose (08/25/2022 9:52 AM EDT) Glucose, POC 162 65 - 199 mg/dL [facility] Comment: Supplemental ranges: <140 mg/dL before meals <180 mg/dL all other times of the day Blood 08/25/2022 9:52 AM EDT 08/25/2022 9:52 AM EDT Milagros Hernandez MD POINT OF CARE TEST O GABRIELLA Performing Organization Address City/[facility] Co de Phone Number [facility] [address] * POCT Glucose (08/25/2022 8:59 AM EDT) Glucose, POC 137 65 - 199 mg/dL [facility] Comment: Supplemental ranges: <140 mg/dL before meals <180 mg/dL all other times of the day Blood 08/25/2022 8:59 AM EDT 08/25/2022 8:59 AM EDT Milagros Hernandez MD POINT OF CARE TEST O GABRIELLA Performing Organization Address [facility] Co de Phone Number [facility] [address] * (ABNORMAL) POCT Glucose (08/25/2022 7:32 AM EDT) Glucose, POC 202(H) 65 - 199 mg/dL [facility] Comment: Supplemental ranges: <140 mg/dL before meals <180 mg/dL all other times of the day Blood 08/25/2022 7:32 AM EDT 08/25/2022 7:32 AM EDT Milagros Hernandez MD POINT OF CARE TEST O GABRIELLA Performing Organization Address City/[facility] Co de Phone Number [facility] [address] * POCT Glucose (08/25/2022 5:50 AM EDT) Glucose, POC 169 65 - 199 mg/dL [facility] Comment: Supplemental ranges: <140 mg/dL before meals <180 mg/dL all other times of the day Blood 08/25/2022 5:50 AM EDT 08/25/2022 5:50 AM EDT Milagros Hernandez MD POINT OF CARE TEST O RDERABLES Performing Organization Address [facility] Co de Phone Number [facility] [address] * POCT Glucose (08/25/2022 3:23 AM EDT) Glucose, POC 157 65 - 199 mg/dL [facility] Comment: Supplemental ranges: <140 mg/dL before meals <180 mg/dL all other times of the day Blood 08/25/2022 3:23 AM EDT 08/25/2022 3:23 AM EDT Milagros Hernandez MD POINT OF CARE TEST O RDERAREYMUNDO Performing Organization Address [facility] Co de Phone Number [facility] [address] * POCT Glucose (08/25/2022 2:35 AM EDT) Glucose, POC 163 65 - 199 mg/dL [facility] Comment: Supplemental ranges: <140 mg/dL before meals <180 mg/dL all other times of the day Blood 08/25/2022 2:35 AM EDT 08/25/2022 2:35 AM EDT Milagros Hernandez MD POINT OF CARE TEST O RDERABLES Performing Organization Address [facility] Co de Phone Number [facility] [address] * Scan, Peripheral Blood (08/25/2022 1:14 AM EDT) Plat estimate Increased [facility] RBC Morphology Abnormal [facility] Macrocyte 1-5 /HPF [facility] Microcyte 6-10 /HPF [facility] Hypochromia Slight [facility] Polychromasia Present >5/HPF [facility] Ovalocytes 1-5 /HPF [facility] Target Cells 1-5 /HPF [facility] Connor Cells 1-5 /HPF [facility] Blood 08/25/2022 1:14 AM EDT 08/25/2022 1:14 AM EDT Narrative Resulting Agency Comment Spec In Lab Tyler Cobb MD HEMATOLOGY ORDERABLE S [facility] [address] * (ABNORMAL) Differential, Automated (08/25/2022 1:14 AM EDT) Neutrophil % 72.4 % [facility] Neutrophil Absolute 8.27(H) 1.70 - 6.10 x10(3)/mc L [facility] Lymph % 15.6 % [facility] Lymphocytes Abs 1.8 0.9 - 3.2 x10(3)/mc L [facility] Monocyte % 8.5 % [facility] Monocyte Abs 1.0(H) 0.3 - 0.9 x10(3)/mc L [facility] Eos % 2.3 % [facility] Eosinophils Abs 0.3 0.0 - 0.4 x10(3)/mc L [facility] Basophil % 0.4 % [facility] Baso Absolute 0.0 0.0 - 0.1 x10(3)/mc L [facility] Immature Gran % 0.80 % [facility] Comment: Immature granulocytes(IG's)percentage and absolute count will include metamyelocytes, myelocytes, and promyelocytes. Blood smears from CBCs yielding IG's will be scanned manually for concordance. If this scan disagrees with the automated IG or if promyelocytes are noted, a manual differential will be performed. Immature Gran Absolute 0.09(H) 0.00 - 0.04 x10(3)/mc L [facility] Blood 08/25/2022 1:14 AM EDT 08/25/2022 1:14 AM EDT Narrative Resulting Agency Comment Spec In Lab Tyler Cobb MD HEMATOLOGY ORDERABLE S [facility] [address] * (ABNORMAL) Hemogram (08/25/2022 1:14 AM EDT) White Blood Cell 11.4(H) 4.0 - 9.5 x10(3)/mc L [facility] Red Blood Cell 4.00 4.00 - 5.21 x10(6)/mc L [facility] Comment:Dimorphic RBC popula tion. Hemoglobin 8.6(L) 11.7 - 15.5 g/dL [facility] Hematocrit 27.9(L) 35.7 - 45.8 % [facility] Mean Cell Volume 69.8(L) 82.6 - 94.4 fL [facility] Mean Cell Hemoglobin 21.5(L) 27.1 - 32.0 pg [facility] Mean Cell Hemoglobin Concentration 30.8(L) 31.7 - 35.0 g/dL [facility] Platelet 501(H) 145 - 357 x10(3)/mc L [facility] RDW Standard Deviation Not Measured 37.0 - 46.0 fL [facility] RDW coefficient of variation Not Measured 11.5 - 14.1 % [facility] Mean Platelet Volume 9.8 7.6 - 12.9 fL [facility] NRBC% auto 0.0 % [facility] NRBC Absolute 0.000 0.000 - 0.000 x10(3)/mc L [facility] Blood 08/25/2022 1:14 AM EDT 08/25/2022 1:14 AM EDT Narrative Resulting Agency Comment Spec In Lab Tyler oCbb MD HEMATOLOGY ORDERABLE S [facility] [address] * (ABNORMAL) Basic Metabolic Panel (non-fasting) (08/25/2022 1:14 AM EDT) Glucose 186 65 - 199 mg/dL [facility] Comment:Diabetes: >=200 mg/d L plus symptoms Blood Urea Nitrogen 15 8 - 18 mg/dL [facility] Creatinine 0.38(L) 0.70 - 1.20 mg/dL [facility] Sodium 138 135 - 145 mmol/L [facility] Potassium 4.1 3.5 - 5.0 mmol/L [facility] Comment: Please note: ??Patients with WBC >100,000 may have falsely elevated Potassium levels. ??For accurate Potassium quantification in these patients send serum separator tube (gold top) for subsequent determinations. ??Contact the Clinical Chemistry Laboratory if there are any questions. Chloride 106 98 - 107 mmol/L [facility] Carbon Dioxide 24 22 - 31 mmol/L [facility] Anion Gap 8 5 - 15 mmol/L [facility] Calcium 8.6 8.5 - 10.5 mg/dL [facility] Est Glomerular Filtration Rate 113 >=60 mL/min/1. 73 m?? [facility] Comment: This patient's estimated GFR was [...] In Lab Richard Pascal MD CHEMISTRY ORDERABLES [facility] [place] [address] * (ABNORMAL) Phosphorus (08/25/2022 1:14 AM EDT) Phosphorus 2.3(L) 2.5 - 4.5 mg/dL [facility] Blood 08/25/2022 1:14 AM EDT 08/25/2022 1:14 AM EDT Narrative Resulting Agency Comment Spec In Lab Richard Pascal MD CHEMISTRY ORDERABLES Performing Organization Address [facility] de Phone Number [facility] [address] * Magnesium (08/25/2022 1:14 AM EDT) Magnesium 0.82 0.69 - 1.07 mmol/L [facility] Blood 08/25/2022 1:14 AM EDT 08/25/2022 1:14 AM EDT Narrative Resulting Agency Comment Spec In Lab Richard Pascal MD CHEMISTRY ORDERABLES Performing Organization Address [facility] Phone Number [facility] [address] * POCT Glucose (08/25/2022 1:00 AM EDT) Glucose, POC 186 65 - 199 mg/dL [facility] Comment: Supplemental ranges: <140 mg/dL before meals <180 mg/dL all other times of the day Blood 08/25/2022 1:00 AM EDT 08/25/2022 1:00 AM EDT Milagros Hernandez MD POINT OF CARE TEST O RDERABLES Performing Organization Address [facility] de Phone Number [facility] [address] * POCT Glucose (08/24/2022 11:26 PM EDT) Glucose, POC 198 65 - 199 mg/dL [facility] Comment: Supplemental ranges: <140 mg/dL before meals <180 mg/dL all other times of the day Blood 08/24/2022 11:2 6 PM EDT 08/24/2022 11:26 PM EDT Milagros Hernandez MD POINT OF CARE TEST O RDERABLES Performing Organization Address [facility] Co de Phone Number [facility] [address] * POCT Glucose (08/24/2022 10:16 PM EDT) Glucose, POC 188 65 - 199 mg/dL [facility] Comment: Supplemental ranges: <140 mg/dL before meals <180 mg/dL all other times of the day Blood 08/24/2022 10:1 6 PM EDT 08/24/2022 10:16 PM EDT Milagros Hernandez MD POINT OF CARE TEST O RDERAREYMUNDO [facility] [place] [address] * POCT Glucose (08/24/2022 9:20 PM EDT) Glucose, POC 195 65 - 199 mg/dL [facility] Comment: Supplemental ranges: <140 mg/dL before meals <180 mg/dL all other times of the day Blood 08/24/2022 9:20 PM EDT 08/24/2022 9:20 PM EDT Milagros Hernandez MD POINT OF CARE TEST O RDERAREYMUNDO Performing Organization Address City/[facility]/ZIP Co de Phone Number [facility] [address] * POCT Glucose (08/24/2022 7:41 PM EDT) Glucose, POC 185 65 - 199 mg/dL [facility] Comment: Supplemental ranges: <140 mg/dL before meals <180 mg/dL all other times of the day Blood 08/24/2022 7:41 PM EDT 08/24/2022 7:41 PM EDT Milagros Hernandez MD POINT OF CARE TEST O RDERAREYMUNDO [facility] [address] * POCT Glucose (08/24/2022 6:38 PM EDT) Glucose, POC 136 65 - 199 mg/dL [facility] Comment: Supplemental ranges: <140 mg/dL before meals <180 mg/dL all other times of the day Blood 08/24/2022 6:38 PM EDT 08/24/2022 6:38 PM EDT Milagros Hernandez MD POINT OF CARE TEST O GABRIELLA Performing Organization Address City/[facility] Co de Phone Number [facility] [address] * POCT Glucose (08/24/2022 6:00 PM EDT) Glucose, POC 131 65 - 199 mg/dL [facility] Comment: Supplemental ranges: <140 mg/dL before meals <180 mg/dL all other times of the day Blood 08/24/2022 6:00 PM EDT 08/24/2022 6:00 PM EDT Milagros Hernandez MD POINT OF CARE TEST O GABRIELLA Performing Organization Address [facility] Co de Phone Number [facility] [address] * POCT Glucose (08/24/2022 4:21 PM EDT) Glucose, POC 147 65 - 199 mg/dL [facility] Comment: Supplemental ranges: <140 mg/dL before meals <180 mg/dL all other times of the day Blood 08/24/2022 4:21 PM EDT 08/24/2022 4:21 PM EDT Milagros Hernandez MD POINT OF CARE TEST O GABRIELLA Performing Organization Address City/[facility] Co de Phone Number [facility] [address] * POCT Glucose (08/24/2022 3:14 PM EDT) Glucose, POC 160 65 - 199 mg/dL [facility] Comment: Supplemental ranges: <140 mg/dL before meals <180 mg/dL all other times of the day Blood 08/24/2022 3:14 PM EDT 08/24/2022 3:14 PM EDT Milagros Hernandez MD POINT OF CARE TEST O GABRIELLA Performing Organization Address City/[facility] Co de Phone Number [facility] [address] * Potassium (08/24/2022 2:21 PM EDT) Potassium 4.4 3.5 - 5.0 mmol/L [facility] Comment: Please note: ??Patients with WBC [...] Pascal MD CHEMISTRY ORDERABLES Performing Organization Address [facility] Co de Phone Number [facility] [address] * POCT Glucose (08/24/2022 2:16 PM EDT) Glucose, POC 168 65 - 199 mg/dL [facility] Comment: Supplemental ranges: <140 mg/dL before meals <180 mg/dL all other times of the day Blood 08/24/2022 2:16 PM EDT 08/24/2022 2:16 PM EDT Milagros Hernandez MD POINT OF CARE TEST O GABRIELLA Performing Organization Address [facility] Co de Phone Number [facility] [address] * POCT Glucose (08/24/2022 1:10 PM EDT) Glucose, POC 166 65 - 199 mg/dL [facility] Comment: Supplemental ranges: <140 mg/dL before meals <180 mg/dL all other times of the day Blood 08/24/2022 1:10 PM EDT 08/24/2022 1:10 PM EDT Milagros Hernandez MD POINT OF CARE TEST O GABRIELLA Performing Organization Address City/[facility] Co de Phone Number [facility] [address] * POCT Glucose (08/24/2022 12:12 PM EDT) Glucose, POC 185 65 - 199 mg/dL [facility] Comment: Supplemental ranges: <140 mg/dL before meals <180 mg/dL all other times of the day Blood 08/24/2022 12:1 2 PM EDT 08/24/2022 12:12 PM EDT Milagros Hernandez MD POINT OF CARE TEST O GABRIELLA Performing Organization Address [facility] Co de Phone Number [facility] [address] * (ABNORMAL) Vitamin D, 25-Hydroxy (08/24/2022 11:29 AM EDT) Vitamin D Total 25 OH 12(L) 21 - 100 ng/mL [facility] Vit D Interp Deficient [facility] Blood 08/24/2022 11:2 9 AM EDT 08/24/2022 11:49 AM EDT Narrative Resulting Agency Comment Spec In Lab Dxiie Tadeo MD CHEMISTRY ORDERABLES Performing Organization Address City/[facility] Co de Phone Number [facility] [place] [address] * PTH (08/24/2022 11:29 AM EDT) Parathyroid Hormone 60 15 - 65 pg/mL [facility] Blood 08/24/2022 11:2 9 AM EDT 08/24/2022 11:49 AM EDT Narrative Resulting Agency Comment Spec In Lab Dixie Tadeo MD CHEMISTRY ORDERABLES Performing Organization Address City/[facility]/ZIP Co de Phone Number [facility] [address] * POCT Glucose (08/24/2022 11:22 AM EDT) Glucose, POC 183 65 - 199 mg/dL [facility] Comment: Supplemental ranges: <140 mg/dL before meals <180 mg/dL all other times of the day Blood 08/24/2022 11:2 2 AM EDT 08/24/2022 11:22 AM EDT Milagros Hernandez MD POINT OF CARE TEST O RDERABLES Performing Organization Address [facility] Co de Phone Number [facility] [address] * POCT Glucose (08/24/2022 10:27 AM EDT) Glucose, POC 193 65 - 199 mg/dL [facility] Comment: Supplemental ranges: <140 mg/dL before meals <180 mg/dL all other times of the day Blood 08/24/2022 10:2 7 AM EDT 08/24/2022 10:27 AM EDT Milagros Hernandez MD POINT OF CARE TEST O RDERAREYMUNDO Performing Organization Address [facility] Co de Phone Number [facility] [address] * POCT Glucose (08/24/2022 9:12 AM EDT) Glucose, POC 171 65 - 199 mg/dL [facility] Comment: Supplemental ranges: <140 mg/dL before meals <180 mg/dL all other times of the day Blood 08/24/2022 9:12 AM EDT 08/24/2022 9:12 AM EDT Milagros Hernandez MD POINT OF CARE TEST O RDERAREYMUNDO Performing Organization Address City/[facility]/ZIP Co de Phone Number [facility] [place] [address] * (ABNORMAL) POCT Glucose (08/24/2022 8:00 AM EDT) Glucose, POC 224(H) 65 - 199 mg/dL [facility] Comment: Supplemental ranges: <140 mg/dL before meals <180 mg/dL all other times of the day Blood 08/24/2022 8:00 AM EDT 08/24/2022 8:00 AM EDT Milagros Hernandez MD POINT OF CARE TEST O RDERAREYMUNDO Performing Organization Address City/[facility]/ZIP Co de Phone Number [facility] [place] [address] * POCT Glucose (08/24/2022 6:16 AM EDT) Glucose, POC 183 65 - 199 mg/dL [facility] Comment: Supplemental ranges: <140 mg/dL before meals <180 mg/dL all other times of the day Blood 08/24/2022 6:16 AM EDT 08/24/2022 6:16 AM EDT Milagros Hernandez MD POINT OF CARE TEST O RDERAREYMUNDO Performing Organization Address City/[facility]/ZIP Co de Phone Number [facility] [address] * POCT Glucose (08/24/2022 4:49 AM EDT) Glucose, POC 145 65 - 199 mg/dL [facility] Comment: Supplemental ranges: <140 mg/dL before meals <180 mg/dL all other times of the day Blood 08/24/2022 4:49 AM EDT 08/24/2022 4:49 AM EDT Milagros Hernandez MD POINT OF CARE TEST O RDERABLES [facility] [place] [address] * POCT Glucose (08/24/2022 4:08 AM EDT) [facility] Glucose, POC 135 65 - 199 mg/dL [facility] Comment: Supplemental ranges: <140 mg/dL before meals <180 mg/dL all other times of the day Blood 08/24/2022 4:08 AM EDT 08/24/2022 4:08 AM EDT Milagros Hernandez MD POINT OF CARE TEST O RDERABLES Performing Organization Address [facility] Co de Phone Number [facility] [place] [address] * Scan, Peripheral Blood (08/24/2022 1:53 AM EDT) [facility] Plat estimate Increased [facility] RBC Morphology Abnormal [facility] Microcyte 1-5 /HPF [facility] Hypochromia Slight [facility] Ovalocytes 1-5 /HPF [facility] Connor Cells 1-5 /HPF [facility] Platelet Clumps Present [facility] Blood 08/24/2022 1:53 AM EDT 08/24/2022 2:02 AM EDT Narrative Resulting Agency Comment Spec In Lab Tyler Cobb MD HEMATOLOGY ORDERABLE S Performing Organization Address [facility] Co de Phone Number [facility] [address] * (ABNORMAL) Differential, Automated (08/24/2022 1:53 AM EDT) [facility] Neutrophil % 77.0 % [facility] Neutrophil Absolute 10.61(H) 1.70 - 6.10 x10(3)/mc L [facility] Lymph % 11.1 % [facility] Lymphocytes Abs 1.5 0.9 - 3.2 x10(3)/mc L [facility] Monocyte % 8.2 % [facility] Monocyte Abs 1.1(H) 0.3 - 0.9 x10(3)/mc L [facility] Eos % 2.2 % [facility] Eosinophils Abs 0.3 0.0 - 0.4 x10(3)/mc L [facility] Basophil % 0.4 % [facility] ITAL [facility] Baso Absolute 0.1 0.0 - 0.1 x10(3)/mc L [facility] Immature Gran % 1.10 % [facility] Comment: Immature granulocytes(IG's)percentage and absolute count will include metamyelocytes, myelocytes, and promyelocytes. Blood smears from CBCs yielding IG's will be scanned manually for concordance. If this scan disagrees with the automated IG or if promyelocytes are noted, a manual differential will be performed. Immature Gran Absolute 0.15(H) 0.00 - 0.04 x10(3)/ L [facility] Blood 08/24/2022 1:53 AM EDT 08/24/2022 2:02 AM EDT Narrative Resulting Agency Comment Spec In Lab Tyler Cobb MD HEMATOLOGY ORDERABLE S Performing Organization Address City/State/[facility] Co de Phone Number [facility] [place] [address] * (ABNORMAL) Hemogram (08/24/2022 1:53 AM EDT) White Blood Cell 13.8(H) 4.0 - 9.5 x10(3)/[facility] Red Blood Cell 4.05 4.00 - 5.21 x10(6)/[facility] Hemoglobin 8.7(L) 11.7 - 15.5 g/dL [facility] Hematocrit 28.1(L) 35.7 - 45.8 % [facility] Mean Cell Volume 69.4(L) 82.6 - 94.4 fL [facility] Mean Cell Hemoglobin 21.5(L) 27.1 - 32.0 pg [facility] Mean Cell Hemoglobin Concentration 31.0(L) 31.7 - 35.0 g/dL [facility] Platelet 504(H) 145 - 357 x10(3)/mc L [facility] RDW Standard Deviation 71.8(H) 37.0 - 46.0 fL [facility] RDW coefficient of variation 31.0(H) 11.5 - 14.1 % [facility] Mean Platelet Volume 9.7 7.6 - 12.9 fL [facility] NRBC% auto 0.1 % [facility] NRBC Absolute 0.020(H) 0.000 - 0.000 x10(3)/mc L [facility] Blood 08/24/2022 1:53 AM EDT 08/24/2022 2:02 AM EDT Narrative Resulting Agency Comment Spec In Lab Tyler Cobb MD HEMATOLOGY ORDERABLE S [facility] [address] * (ABNORMAL) Basic Metabolic Panel (non-fasting) (08/24/2022 1:53 AM EDT) Glucose 155 65 - 199 mg/dL [facility] Comment:Diabetes: >=200 mg/d L plus symptoms Blood Urea Nitrogen 17 8 - 18 mg/dL [facility] Creatinine 0.45(L) 0.70 - 1.20 mg/dL [facility] Sodium 141 135 - 145 mmol/L [facility] Potassium 3.7 3.5 - 5.0 mmol/L [facility] Comment: Please note: ??Patients with WBC >100,000 may have falsely elevated Potassium levels. ??For accurate Potassium quantification in these patients send serum separator tube (gold top) for subsequent determinations. ??Contact the Clinical Chemistry Laboratory if there are any questions. Chloride 106 98 - 107 mmol/L [facility] Carbon Dioxide 27 22 - 31 mmol/L [facility] Anion Gap 8 5 - 15 mmol/L [facility] Calcium 8.6 8.5 - 10.5 mg/dL [facility] Est Glomerular Filtration Rate 109 >=60 mL/min/1. 73 m?? [facility] Comment: This patient's estimated GFR was [...] Pascal MD CHEMISTRY ORDERABLES Performing Organization Address City/[facility] Co de Phone Number [facility] [address] * (ABNORMAL) Phosphorus (08/24/2022 1:53 AM EDT) Phosphorus 2.3(L) 2.5 - 4.5 mg/dL [facility] Blood 08/24/2022 1:53 AM EDT 08/24/2022 2:02 AM EDT Narrative Resulting Agency Comment Spec In Lab Richard Pascal MD CHEMISTRY ORDERABLES Performing Organization Address [facility] Co de Phone Number [facility] [address] * Magnesium (08/24/2022 1:53 AM EDT) Magnesium 0.90 0.69 - 1.07 mmol/L [facility] Blood 08/24/2022 1:53 AM EDT 08/24/2022 2:02 AM EDT Narrative Resulting Agency Comment Spec In Lab Richard Pascal MD CHEMISTRY ORDERABLES Performing Organization Address [facility] Co de Phone Number [facility] [address] * POCT Glucose (08/24/2022 1:51 AM EDT) Glucose, POC 151 65 - 199 mg/dL [facility] Comment: Supplemental ranges: <140 mg/dL before meals <180 mg/dL all other times of the day Blood 08/24/2022 1:51 AM EDT 08/24/2022 1:51 AM EDT Milagros Hernandez MD POINT OF CARE TEST O RDERABLES Performing Organization Address [facility]/ZIP Co de Phone Number [facility] [address] * POCT Glucose (08/24/2022 12:01 AM EDT) Glucose, POC 174 65 - 199 mg/dL [facility] Comment: Supplemental ranges: <140 mg/dL before meals <180 mg/dL all other times of the day Blood 08/24/2022 12:0 1 AM EDT 08/24/2022 12:01 AM EDT Milagros Hernandez MD POINT OF CARE TEST O RDERAREYMUNDO Performing Organization Address [facility] Co de Phone Number [facility] [address] * POCT Glucose (08/23/2022 11:03 PM EDT) Glucose, POC 180 65 - 199 mg/dL [facility] Comment: Supplemental ranges: <140 mg/dL before meals <180 mg/dL all other times of the day Blood 08/23/2022 11:0 3 PM EDT 08/23/2022 11:03 PM EDT Milagros Hernandez MD POINT OF CARE TEST O HUGHERAREYMUNDO Performing Organization Address [facility] Co de Phone Number [facility] [address] * (ABNORMAL) POCT Glucose (08/23/2022 9:10 PM EDT) Glucose, POC 200(H) 65 - 199 mg/dL [facility] Comment: Supplemental ranges: <140 mg/dL before meals <180 mg/dL all other times of the day Blood 08/23/2022 9:10 PM EDT 08/23/2022 9:10 PM EDT Milagros Hernandez MD POINT OF CARE TEST O RDERABLES [facility] [place] [address] * POCT Glucose (08/23/2022 7:01 PM EDT) Glucose, POC 189 65 - 199 mg/dL [facility] Comment: Supplemental ranges: <140 mg/dL before meals <180 mg/dL all other times of the day Blood 08/23/2022 7:01 PM EDT 08/23/2022 7:01 PM EDT Milagros Hernandez MD POINT OF CARE TEST O RDERABLES Performing Organization Address [facility]/ZIP Co de Phone Number [facility] [address] * POCT Glucose (08/23/2022 6:09 PM EDT) Glucose, POC 194 65 - 199 mg/dL [facility] Comment: Supplemental ranges: <140 mg/dL before meals <180 mg/dL all other times of the day Blood 08/23/2022 6:09 PM EDT 08/23/2022 6:09 PM EDT Milagros Hernandez MD POINT OF CARE TEST O RDERABLES Performing Organization Address [facility]/ZIP Co de Phone Number [facility] [address] * (ABNORMAL) POCT Glucose (08/23/2022 4:26 PM EDT) Glucose, POC 214(H) 65 - 199 mg/dL [facility] Comment: Supplemental ranges: <140 mg/dL before meals <180 mg/dL all other times of the day Blood 08/23/2022 4:26 PM EDT 08/23/2022 4:26 PM EDT Milagros Hernandez MD POINT OF CARE TEST O RDERABLES Performing Organization Address City/[facility]/ZIP Co de Phone Number [facility] [address] * POCT Glucose (08/23/2022 2:56 PM EDT) Glucose, POC 158 65 - 199 mg/dL [facility] Comment: Supplemental ranges: <140 mg/dL before meals <180 mg/dL all other times of the day Blood 08/23/2022 2:56 PM EDT 08/23/2022 2:56 PM EDT Milagros Hernandez MD POINT OF CARE TEST O GABRIELLA [facility] [place] [address] * POCT Glucose (08/23/2022 1:32 PM EDT) Glucose, POC 166 65 - 199 mg/dL [facility] Comment: Supplemental ranges: <140 mg/dL before meals <180 mg/dL all other times of the day Blood 08/23/2022 1:32 PM EDT 08/23/2022 1:32 PM EDT Milagros Hernandez MD POINT OF CARE TEST O GABRIELLA Performing Organization Address City/[facility]/ZIP Co de Phone Number [facility] [address] * POCT Glucose (08/23/2022 12:06 PM EDT) Glucose, POC 171 65 - 199 mg/dL [facility] Comment: Supplemental ranges: <140 mg/dL before meals <180 mg/dL all other times of the day Blood 08/23/2022 12:0 6 PM EDT 08/23/2022 12:06 PM EDT Milagros Hernandez MD POINT OF CARE TEST O GABRIELLA [facility] [place] [address] * POCT Glucose (08/23/2022 11:09 AM EDT) Glucose, POC 153 65 - 199 mg/dL [facility] Comment: Supplemental ranges: <140 mg/dL before meals <180 mg/dL all other times of the day Blood 08/23/2022 11:0 9 AM EDT 08/23/2022 11:09 AM EDT Milagros Hernandez MD POINT OF CARE TEST O RDERABLES Performing Organization Address [facility] Co de Phone Number [facility] [address] * Scan, Peripheral Blood (08/23/2022 10:55 AM EDT) Plat estimate Increased [facility] RBC Morphology Abnormal [facility] Microcyte 1-5 /HPF [facility] Hypochromia Slight [facility] Ovalocytes 1-5 /HPF [facility] Connor Cells 1-5 /HPF [facility] Platelet Clumps Present [facility] Blood 08/23/2022 10:5 5 AM EDT 08/23/2022 11:03 AM EDT Narrative Resulting Agency Comment Spec In Lab Neva Tomlin MD HEMATOLOGY ORDERABLE S Performing Organization Address [facility] Co de Phone Number [facility] [address] * (ABNORMAL) Differential, Automated (08/23/2022 10:55 AM EDT) Neutrophil % 81.2 % [facility] Neutrophil Absolute 13.28(H) 1.70 - 6.10 x10(3)/mc L [facility] Lymph % 8.6 % [facility] Lymphocytes Abs 1.4 0.9 - 3.2 x10(3)/mc L [facility] Monocyte % 7.0 % [facility] Monocyte Abs 1.2(H) 0.3 - 0.9 x10(3)/mc L [facility] Eos % 1.7 % [facility] Eosinophils Abs 0.3 0.0 - 0.4 x10(3)/mc L [facility] Basophil % 0.2 % [facility] Baso Absolute 0.0 0.0 - 0.1 x10(3)/mc L [facility] Immature Gran % 1.30 % [facility] Comment: Immature granulocytes(IG's)percentage and absolute count will include metamyelocytes, myelocytes, and promyelocytes. Blood smears from CBCs yielding IG's will be scanned manually for concordance. If this scan disagrees with the automated IG or if promyelocytes are noted, a manual differential will be performed. Immature Gran Absolute 0.22(H) 0.00 - 0.04 x10(3)/mc L [facility] Blood 08/23/2022 10:5 5 AM EDT 08/23/2022 11:03 AM EDT Narrative Resulting Agency Comment Spec In Lab Neva Tomlin MD HEMATOLOGY ORDERABLE S Performing Organization Address City/State/[facility] Co de Phone Number [facility] [address] * (ABNORMAL) Hemogram (08/23/2022 10:55 AM EDT) White Blood Cell 16.4(H) 4.0 - 9.5 x10(3)/mc L [facility] Red Blood Cell 3.89(L) 4.00 - 5.21 x10(6)/mc L [facility] Hemoglobin 8.6(L) 11.7 - 15.5 g/dL [facility] Hematocrit 27.2(L) 35.7 - 45.8 % [facility] Mean Cell Volume 69.9(L) 82.6 - 94.4 fL [facility] Mean Cell Hemoglobin 22.1(L) 27.1 - 32.0 pg [facility] Mean Cell Hemoglobin Concentration 31.6(L) 31.7 - 35.0 g/dL [facility] Platelet Not Measured 145 - 357 x10(3)/[facility] Comment: Platelet clumps present. Estimate appears Increased. If numerical platelet count is necessary send both a Sodium Citrate tube and an EDTA tube for future platelet count orders. RDW Standard Deviation Not Measured 37.0 - 46.0 fL [facility] RDW coefficient of variation Not Measured 11.5 - 14.1 % [facility] Mean Platelet Volume Not Measured 7.6 - 12.9 fL [facility] NRBC% auto 0.2 % [facility] NRBC Absolute 0.030(H) 0.000 - 0.000 x10(3)/mc L [facility] Blood 08/23/2022 10:5 5 AM EDT 08/23/2022 11:03 AM EDT Narrative Resulting Agency Comment Spec In Lab Neva Tomlin MD HEMATOLOGY ORDERABLE S Performing Organization Address City/[facility]/ZIP Co de Phone Number [facility] [address] * (ABNORMAL) POCT Glucose (08/23/2022 8:01 AM EDT) Glucose, POC 210(H) 65 - 199 mg/dL [facility] Comment: Supplemental ranges: <140 mg/dL before meals <180 mg/dL all other times of the day Blood 08/23/2022 8:01 AM EDT 08/23/2022 8:01 AM EDT Milagros Hernandez MD POINT OF CARE TEST O RDERABLES Performing Organization Address [facility] Co de Phone Number [facility] [address] * POCT Glucose (08/23/2022 4:22 AM EDT) Glucose, POC 173 65 - 199 mg/dL [facility] Comment: Supplemental ranges: <140 mg/dL before meals <180 mg/dL all other times of the day Blood 08/23/2022 4:22 AM EDT 08/23/2022 4:22 AM EDT Milagros Hernandez MD POINT OF CARE TEST O RDERABLES Performing Organization Address City/[facility]/ZIP Co de Phone Number [facility] [address] * POCT Glucose (08/23/2022 2:32 AM EDT) [facility] Glucose, POC 181 65 - 199 mg/dL [facility] Comment: Supplemental ranges: <140 mg/dL before meals <180 mg/dL all other times of the day Blood 08/23/2022 2:32 AM EDT 08/23/2022 2:32 AM EDT Milagros Hernandez MD POINT OF CARE TEST O RDERABLES Performing Organization Address [facility] Co de Phone Number [facility] [place] [address] * Scan, Peripheral Blood (08/23/2022 2:30 AM EDT) [facility] Plat estimate Increased [facility] RBC Morphology Abnormal [facility] Microcyte 1-5 /HPF [facility] Hypochromia Slight [facility] Ovalocytes 1-5 /HPF [facility]AL [facility] Target Cells 1-5 /HPF [facility] Platelet Clumps Present [facility] Blood 08/23/2022 2:30 AM EDT 08/23/2022 2:42 AM EDT Narrative Resulting Agency Comment Spec In Lab Tyler Cobb MD HEMATOLOGY ORDERABLE S Performing Organization Address [facility] de Phone Number [facility] [place] [address] * (ABNORMAL) Differential, Automated (08/23/2022 2:30 AM EDT) [facility] Neutrophil % 79.7 % [facility] Neutrophil Absolute 13.27(H) 1.70 - 6.10 x10(3)/mc L [facility] Lymph % 9.2 % [facility] Lymphocytes Abs 1.5 0.9 - 3.2 x10(3)/mc L [facility] Monocyte % 7.8 % [facility] Monocyte Abs 1.3(H) 0.3 - 0.9 x10(3)/mc L [facility] Eos % 1.6 % [facility] Eosinophils Abs 0.3 0.0 - 0.4 x10(3)/mc L [facility] Basophil % 0.2 % [facility] Baso Absolute 0.0 0.0 - 0.1 x10(3)/mc L [facility] Immature Gran % 1.50 % [facility] Comment: Immature granulocytes(IG's)percentage and absolute count will include metamyelocytes, myelocytes, and promyelocytes. Blood smears from CBCs yielding IG's will be scanned manually for concordance. If this scan disagrees with the automated IG or if promyelocytes are noted, a manual differential will be performed. Immature Gran Absolute 0.25(H) 0.00 - 0.04 x10(3)/ L [facility] Blood 08/23/2022 2:30 AM EDT 08/23/2022 2:42 AM EDT Narrative Resulting Agency Comment Spec In Lab Tyler Cobb MD HEMATOLOGY ORDERABLE S Performing Organization Address City/State/[facility] Co de Phone Number [facility] [address] * (ABNORMAL) Hemogram (08/23/2022 2:30 AM EDT) White Blood Cell 16.7(H) 4.0 - 9.5 x10(3)/ L [facility] Red Blood Cell 3.98(L) 4.00 - 5.21 x10(6)/ L [facility] Hemoglobin 8.7(L) 11.7 - 15.5 g/dL [facility] Hematocrit 27.6(L) 35.7 - 45.8 % [facility] Mean Cell Volume 69.3(L) 82.6 - 94.4 fL [facility] Mean Cell Hemoglobin 21.9(L) 27.1 - 32.0 pg [facility] Mean Cell Hemoglobin Concentration 31.5(L) 31.7 - 35.0 g/dL [facility] Platelet Not Measured 145 - 357 x10(3)/[facility] Comment: Platelet clumps present. Estimate appears Increased. If numerical platelet count is necessary send both a Sodium Citrate tube and an EDTA tube for future platelet count orders. RDW Standard Deviation Not Measured 37.0 - 46.0 fL [facility] RDW coefficient of variation Not Measured 11.5 - 14.1 % [facility] Mean Platelet Volume Not Measured 7.6 - 12.9 fL [facility] NRBC% auto 0.2 % [facility] NRBC Absolute 0.040(H) 0.000 - 0.000 x10(3)/mc L [facility] Blood 08/23/2022 2:30 AM EDT 08/23/2022 2:42 AM EDT Narrative Resulting Agency Comment Spec In Lab Tyler Cobb MD HEMATOLOGY ORDERABLE S [facility] [place] [address] * (ABNORMAL) Basic Metabolic Panel (non-fasting) (08/23/2022 2:30 AM EDT) Glucose 195 65 - 199 mg/dL [facility] Comment:Diabetes: >=200 mg/d L plus symptoms Blood Urea Nitrogen 16 8 - 18 mg/dL [facility] Creatinine 0.53(L) 0.70 - 1.20 mg/dL [facility] Sodium 142 135 - 145 mmol/L [facility] Potassium 4.2 3.5 - 5.0 mmol/L [facility] Comment: Please note: ??Patients with WBC >100,000 may have falsely elevated Potassium levels. ??For accurate Potassium quantification in these patients send serum separator tube (gold top) for subsequent determinations. ??Contact the Clinical Chemistry Laboratory if there are any questions. Chloride 107 98 - 107 mmol/L [facility] Carbon Dioxide 27 22 - 31 mmol/L [facility] Anion Gap 8 5 - 15 mmol/L [facility] Calcium 8.5 8.5 - 10.5 mg/dL [facility] Est Glomerular Filtration Rate 105 >=60 mL/min/1. 73 m?? [facility] Comment: This patient's estimated GFR was [...] In Lab Richard Pascal MD CHEMISTRY ORDERABLES [facility] [place] [address] * Phosphorus (08/23/2022 2:30 AM EDT) Phosphorus 2.8 2.5 - 4.5 mg/dL [facility] Blood 08/23/2022 2:30 AM EDT 08/23/2022 2:42 AM EDT Narrative Resulting Agency Comment Spec In Lab Richard Pascal MD CHEMISTRY ORDERABLES Performing Organization Address City/[facility]/ZIP Co de Phone Number [facility] [place] [address] * Magnesium (08/23/2022 2:30 AM EDT) Magnesium 0.80 0.69 - 1.07 mmol/L [facility] Blood 08/23/2022 2:30 AM EDT 08/23/2022 2:42 AM EDT Narrative Resulting Agency Comment Spec In Lab Richard Pascal MD CHEMISTRY ORDERABLES Performing Organization Address City/[facility]/ZIP Co de Phone Number [facility] [place] [address] * POCT Glucose (08/23/2022 1:11 AM EDT) Glucose, POC 137 65 - 199 mg/dL [facility] Comment: Supplemental ranges: <140 mg/dL before meals <180 mg/dL all other times of the day Blood 08/23/2022 1:11 AM EDT 08/23/2022 1:11 AM EDT Milagros Hernandez MD POINT OF CARE TEST O RDERABLES Performing Organization Address City/[facility] Co de Phone Number [facility] [place] [address] * POCT Glucose (08/23/2022 12:28 AM EDT) Glucose, POC 136 65 - 199 mg/dL [facility] Comment: Supplemental ranges: <140 mg/dL before meals <180 mg/dL all other times of the day Blood 08/23/2022 12:2 8 AM EDT 08/23/2022 12:28 AM EDT Milagros Hernandez MD POINT OF CARE TEST O HUGHERAREYMUNDO Performing Organization Address [facility] Co de Phone Number [facility] [place] [address] * POCT Glucose (08/22/2022 10:15 PM EDT) Glucose, POC 194 65 - 199 mg/dL [facility] Comment: Supplemental ranges: <140 mg/dL before meals <180 mg/dL all other times of the day Blood 08/22/2022 10:1 5 PM EDT 08/22/2022 10:15 PM EDT Milagros Hernandez MD POINT OF CARE TEST O RDERAREYMUNDO Performing Organization Address City/[facility] Co de Phone Number [facility] [place] [address] * POCT Glucose (08/22/2022 9:11 PM EDT) Glucose, POC 162 65 - 199 mg/dL [facility] Comment: Supplemental ranges: <140 mg/dL before meals <180 mg/dL all other times of the day Blood 08/22/2022 9:11 PM EDT 08/22/2022 9:11 PM EDT Milagros Hernandez MD POINT OF CARE TEST O RDERABLES [facility] [place] [address] * POCT Glucose (08/22/2022 6:47 PM EDT) Glucose, POC 181 65 - 199 mg/dL [facility] Comment: Supplemental ranges: <140 mg/dL before meals <180 mg/dL all other times of the day Blood 08/22/2022 6:47 PM EDT 08/22/2022 6:47 PM EDT Milagros Hernandez MD POINT OF CARE TEST O RDERAREYMUNDO Performing Organization Address [facility] Co de Phone Number [facility] [address] * POCT Glucose (08/22/2022 6:14 PM EDT) Glucose, POC 193 65 - 199 mg/dL [facility] Comment: Supplemental ranges: <140 mg/dL before meals <180 mg/dL all other times of the day Blood 08/22/2022 6:14 PM EDT 08/22/2022 6:14 PM EDT Milagros Hernandez MD POINT OF CARE TEST O RDERABLES Performing Organization Address [facility] Co de Phone Number [facility] [address] * (ABNORMAL) POCT Glucose (08/22/2022 5:37 PM EDT) Glucose, POC 202(H) 65 - 199 mg/dL [facility] Comment: Supplemental ranges: <140 mg/dL before meals <180 mg/dL all other times of the day Blood 08/22/2022 5:37 PM EDT 08/22/2022 5:37 PM EDT Milagros Hernandez MD POINT OF CARE TEST O RDERABLES [facility] [place] [address] * (ABNORMAL) POCT Glucose (08/22/2022 4:17 PM EDT) Glucose, POC 207(H) 65 - 199 mg/dL [facility] Comment: Supplemental ranges: <140 mg/dL before meals <180 mg/dL all other times of the day Blood 08/22/2022 4:17 PM EDT 08/22/2022 4:17 PM EDT Milagros Hernandez MD POINT OF CARE TEST O RDERAREYMUNDO [facility] [place] [address] * POCT Glucose (08/22/2022 2:01 PM EDT) Glucose, POC 147 65 - 199 mg/dL [facility] Comment: Supplemental ranges: <140 mg/dL before meals <180 mg/dL all other times of the day Blood 08/22/2022 2:01 PM EDT 08/22/2022 2:01 PM EDT Milagros Hernandez MD POINT OF CARE TEST O RDERABLES [facility] [address] * POCT Glucose (08/22/2022 12:10 PM EDT) Glucose, POC 121 65 - 199 mg/dL [facility] Comment: Supplemental ranges: <140 mg/dL before meals <180 mg/dL all other times of the day Blood 08/22/2022 12:1 0 PM EDT 08/22/2022 12:10 PM EDT Milagros Hernandez MD POINT OF CARE TEST O RDERABLES [facility] [address] * Prepare RBC (08/22/2022 11:15 AM EDT) Dispensed? Yes [facility] Blood 08/22/2022 11:1 5 AM EDT 08/22/2022 11:11 AM EDT Milagros Hernandez MD BLOOD BANK PRODUCT O RDERABLES [facility] [address] * POCT Glucose (08/22/2022 10:03 AM EDT) Glucose, POC 145 65 - 199 mg/dL [facility] Comment: Supplemental ranges: <140 mg/dL before meals <180 mg/dL all other times of the day Blood 08/22/2022 10:0 3 AM EDT 08/22/2022 10:03 AM EDT Milagros Hernandez MD POINT OF CARE TEST O RDERABLES Performing Organization Address City/[facility]/ZIP Co de Phone Number [facility] [place] [address] * Type and Screen Validity (08/22/2022 9:00 AM EDT) T&S only valid at [facility] LABORATORY Comment:This Type and Screen result is only valid at the [facility] Blood 08/22/2022 9:00 AM EDT 08/22/2022 9:33 AM EDT Narrative Resulting Agency Comment Spec In Lab Reynaldo Avila MD BLOOD BANK LAB SUMI JONES Performing Organization Address City/[facility]/ZIP Co de Phone Number [facility] [address] * ABORH Recheck Status (08/22/2022 9:00 AM EDT) ABORH Recheck Order Order Placed [facility] ABORH Type Recheck Complete [facility] Blood 08/22/2022 9:00 AM EDT 08/22/2022 9:33 AM EDT Narrative Resulting Agency Comment Spec In Lab Reynaldo Avila MD BLOOD BANK LAB ORDYoli JONES Performing Organization Address City/[facility]/ZIP Co de Phone Number [facility] [address] * Antibody screen (08/22/2022 9:00 AM EDT) Ab Screen Interp Negative [facility] Expires at [id number] on: 08/25/2022 [facility] Blood 08/22/2022 9:00 AM EDT 08/22/2022 9:33 AM EDT Narrative Resulting Agency Comment Spec In Lab Reynaldo Avila MD BLOOD BANK LAB SUMI JONES Performing Organization Address [facility] Co de Phone Number [facility] [address] * ABO/Rh Typing (08/22/2022 9:00 AM EDT) ABORH Type O Pos [facility] Blood 08/22/2022 9:00 AM EDT 08/22/2022 9:33 AM EDT Narrative Resulting Agency Comment Spec In Lab Reynaldo Avila MD BLOOD BANK LAB ORDYoli JONES Performing Organization Address [facility] Co de Phone Number [facility] [address] * POCT Glucose (08/22/2022 8:00 AM EDT) Glucose, POC 156 65 - 199 mg/dL [facility] Comment: Supplemental ranges: <140 mg/dL before meals <180 mg/dL all other times of the day Blood 08/22/2022 8:00 AM EDT 08/22/2022 8:00 AM EDT Milagros Hernandez MD POINT OF CARE TEST O RDERABLES Performing Organization Address City/[facility] Co de Phone Number [facility] [place] [address] * POCT Glucose (08/22/2022 5:53 AM EDT) Glucose, POC 154 65 - 199 mg/dL [facility] Comment: Supplemental ranges: <140 mg/dL before meals <180 mg/dL all other times of the day Blood 08/22/2022 5:53 AM EDT 08/22/2022 5:53 AM EDT Milagros Hernandez MD POINT OF CARE TEST O RDAV Performing Organization Address [facility] Co de Phone Number [facility] [address] * POCT Glucose (08/22/2022 3:40 AM EDT) Glucose, POC 182 65 - 199 mg/dL [facility] Comment: Supplemental ranges: <140 mg/dL before meals <180 mg/dL all other times of the day Blood 08/22/2022 3:40 AM EDT 08/22/2022 3:40 AM EDT Milagros Hernandez MD POINT OF CARE TEST O GABRIELLA Performing Organization Address [facility] Co de Phone Number [facility] [address] * (ABNORMAL) Differential, Automated (08/22/2022 3:39 AM EDT) Neutrophil % 79.0 % [facility] Neutrophil Absolute 13.15(H) 1.70 - 6.10 x10(3)/mc L [facility] Lymph % 10.5 % [facility] Lymphocytes Abs 1.7 0.9 - 3.2 x10(3)/mc L [facility] Monocyte % 6.8 % [facility] Monocyte Abs 1.1(H) 0.3 - 0.9 x10(3)/mc L [facility] Eos % 0.9 % [facility] Eosinophils Abs 0.2 0.0 - 0.4 x10(3)/mc L [facility] Basophil % 0.2 % [facility] Baso Absolute 0.0 0.0 - 0.1 x10(3)/mc L [facility] Immature Gran % 2.60 % [facility] Comment: Immature granulocytes(IG's)percentage and absolute count will include metamyelocytes, myelocytes, and promyelocytes. Blood smears from CBCs yielding IG's will be scanned manually for concordance. If this scan disagrees with the automated IG or if promyelocytes are noted, a manual differential will be performed. Immature Gran Absolute 0.44(H) 0.00 - 0.04 x10(3)/ L [facility] Blood 08/22/2022 3:39 AM EDT 08/22/2022 3:47 AM EDT Narrative Resulting Agency Comment Spec In Lab Tyler Cobb MD HEMATOLOGY ORDERABLE S Performing Organization Address City/State/[facility] Co de Phone Number [facility] [address] * (ABNORMAL) Hemogram (08/22/2022 3:39 AM EDT) White Blood Cell 16.6(H) 4.0 - 9.5 x10(3)/ L [facility] Red Blood Cell 3.54(L) 4.00 - 5.21 x10(6)/ L [facility] Hemoglobin 7.1(L) 11.7 - 15.5 g/dL [facility] Hematocrit 23.7(L) 35.7 - 45.8 % [facility] Mean Cell Volume 66.9(L) 82.6 - 94.4 fL [facility] Mean Cell Hemoglobin 20.1(L) 27.1 - 32.0 pg [facility] Mean Cell Hemoglobin Concentration 30.0(L) 31.7 - 35.0 g/dL [facility] Platelet 445(H) 145 - 357 x10(3)/mc L [facility] RDW Standard Deviation 68.9(H) 37.0 - 46.0 fL [facility] RDW coefficient of variation 31.0(H) 11.5 - 14.1 % [facility] Mean Platelet Volume 10.2 7.6 - 12.9 fL [facility] NRBC% auto 0.2 % [facility] NRBC Absolute 0.040(H) 0.000 - 0.000 x10(3)/mc L [facility] Blood 08/22/2022 3:39 AM EDT 08/22/2022 3:47 AM EDT Narrative Resulting Agency Comment Spec In Lab Tyler Cobb MD HEMATOLOGY ORDERABLE S [facility] [address] * (ABNORMAL) Basic Metabolic Panel (non-fasting) (08/22/2022 3:39 AM EDT) Glucose 191 65 - 199 mg/dL [facility] Comment:Diabetes: >=200 mg/d L plus symptoms Blood Urea Nitrogen 20(H) 8 - 18 mg/dL [facility] Creatinine 0.56(L) 0.70 - 1.20 mg/dL [facility] Sodium 145 135 - 145 mmol/L [facility] Potassium 4.1 3.5 - 5.0 mmol/L [facility] Comment: Please note: ??Patients with WBC >100,000 may have falsely elevated Potassium levels. ??For accurate Potassium quantification in these patients send serum separator tube (gold top) for subsequent determinations. ??Contact the Clinical Chemistry Laboratory if there are any questions. Chloride 111(H) 98 - 107 mmol/L [facility] Carbon Dioxide 27 22 - 31 mmol/L [facility] Anion Gap 7 5 - 15 mmol/L [facility] Calcium 8.7 8.5 - 10.5 mg/dL [facility] Est Glomerular Filtration Rate 103 >=60 mL/min/1. 73 m?? [facility] Comment: This patient's estimated GFR was [...] Pascal MD CHEMISTRY ORDERABLES Performing Organization Address [facility] Co de Phone Number [facility] [address] * (ABNORMAL) Phosphorus (08/22/2022 3:39 AM EDT) Phosphorus 2.4(L) 2.5 - 4.5 mg/dL [facility] Blood 08/22/2022 3:39 AM EDT 08/22/2022 3:47 AM EDT Narrative Resulting Agency Comment Spec In Lab Richard Pascal MD CHEMISTRY ORDERABLES Performing Organization Address [facility] Co de Phone Number [facility] [address] * Magnesium (08/22/2022 3:39 AM EDT) Magnesium 0.86 0.69 - 1.07 mmol/L [facility] Blood 08/22/2022 3:39 AM EDT 08/22/2022 3:47 AM EDT Narrative Resulting Agency Comment Spec In Lab Richard Pascal MD CHEMISTRY ORDERABLES Performing Organization Address [facility] Co de Phone Number [facility] [address] * (ABNORMAL) POCT Glucose (08/22/2022 2:15 AM EDT) Glucose, POC 232(H) 65 - 199 mg/dL [facility] Comment: Supplemental ranges: <140 mg/dL before meals <180 mg/dL all other times of the day Blood 08/22/2022 2:15 AM EDT 08/22/2022 2:15 AM EDT Milagros Hernandez MD POINT OF CARE TEST O GABRIELLA Performing Organization Address City/[facility]/ZIP Co de Phone Number [facility] [address] * (ABNORMAL) POCT Glucose (08/22/2022 12:43 AM EDT) Glucose, POC 233(H) 65 - 199 mg/dL [facility] Comment: Supplemental ranges: <140 mg/dL before meals <180 mg/dL all other times of the day Blood 08/22/2022 12:4 3 AM EDT 08/22/2022 12:43 AM EDT Milagros Hernandez MD POINT OF CARE TEST O GABRIELLA Performing Organization Address [facility]/ZIP Co de Phone Number [facility] [place] [address] * XR Pelvis (Generic) (08/22/2022 12:19 AM [...] who have questions please contact the health coronary care unit nurse that requested your imaging [...] patients who have questions please contactthe health coronary care unit nurse that requested your imaging first. Milagros Hernandez [...] who have questions please contact the health coronary care unit nurse that requested your imaging first. ? Electronically signed by: Viktor Cervantes MD, [facility] ([phone]), at 08/22/2022 12:43 PM Narrative 08/22/2022 12:43 [...] patients who have questions please contactthe health coronary care unit nurse that requested your imaging first. Milagros Hernandez MD IMG DX ORDERABLES * (ABNORMAL) POCT Glucose (08/21/2022 10:26 PM EDT) Glucose, POC 226(H) 65 - 199 mg/dL [facility] Comment: Supplemental ranges: <140 mg/dL before meals <180 mg/dL all other times of the day Blood 08/21/2022 10:2 6 PM EDT 08/21/2022 10:26 PM EDT Milagros Hernandez MD POINT OF CARE TEST O GABRIELLA [facility] [address] * POCT Glucose (08/21/2022 7:48 PM EDT) Glucose, POC 123 65 - 199 mg/dL [facility] Comment: Supplemental ranges: <140 mg/dL before meals <180 mg/dL all other times of the day Blood 08/21/2022 7:48 PM EDT 08/21/2022 7:48 PM EDT Milagros Hernandez MD POINT OF CARE TEST O GABRIELLA Performing Organization Address City/[facility]/ZIP Co de Phone Number [facility] [address] * POCT Glucose (08/21/2022 5:59 PM EDT) Glucose, POC 138 65 - 199 mg/dL [facility] Comment: Supplemental ranges: <140 mg/dL before meals <180 mg/dL all other times of the day Blood 08/21/2022 5:59 PM EDT 08/21/2022 5:59 PM EDT Milagros Hernandez MD POINT OF CARE TEST O GABRIELLA [facility] [place] [address] * POCT Glucose (08/21/2022 5:06 PM EDT) Glucose, POC 152 65 - 199 mg/dL [facility] Comment: Supplemental ranges: <140 mg/dL before meals <180 mg/dL all other times of the day Blood 08/21/2022 5:06 PM EDT 08/21/2022 5:06 PM EDT Milagros Hernandez MD POINT OF CARE TEST O RDERABLES Performing Organization Address [facility] Co de Phone Number [facility] [address] * Cell Count, Bronchoalveolar Lavage (08/21/2022 4:50 PM EDT) Pathologist [facility] Color BAL White [facility] Appearance, BAL Hazy [facility] NUC, BAL Count 422 mcL [facility] Seg BAL 87 % [facility] Lymph, BAL 10 % [facility] Macrophage BAL 2 % [facility] Eos, BAL 1 % [facility] Total Cells, BAL 200 Cells [facility] Bronchial Alveolar Lavage 08/21/2022 4:50 PM EDT 08/21/2022 5:37 PM EDT Narrative Resulting Agency Comment Spec In Lab Milagros Hernandez MD BODY FLUIDS AND STOO LS ORDERABLES Performing Organization Address [facility] Co de Phone Number [facility] [address] * Calcofluor White Stain (08/21/2022 4:50 PM EDT) Pathologist [facility] Calcofluor Stain Calcofluor White Preparation: Negative [facility] Bronchial Alveolar Lavage 08/21/2022 4:50 PM EDT 08/21/2022 5:37 PM EDT Comment:JACQUI Narrative Resulting Agency Comment Spec In Lab Reynaldo Avila MD MICROBIOLOGY - GENE RAL ORDERABLES Performing Organization Address [facility] Co de Phone Number [facility] [address] * (ABNORMAL) Fungus culture (08/21/2022 4:50 PM EDT) Fungus Culture Rare Jacky albicans(A) [facility] Organism Jacky albicans(A) [facility] Bronchial Alveolar Lavage 08/21/2022 4:50 PM EDT 08/21/2022 5:37 PM EDT Comment:JACQUI Narrative Resulting Agency Comment Spec In Lab Reynaldo Avila MD MICROBIOLOGY - GENE RAL ORDERABLES Performing Organization Address [facility]/ZIP Co de Phone Number [facility] [place] [address] * AFB culture Bronchial Alveolar Lavage (08/21/2022 4:50 PM EDT) Acid Fast Bacilli Culture No Acid Fast Bacilli isolated If active tuberculosis is suspected, the patient should be on [employer]. Call Infection Prevention for assistance if needed. [facility] Acid Fast Stain No Acid Fast Bacilli seen [facility] Bronchial Alveolar Lavage 08/21/2022 4:50 PM EDT 08/21/2022 5:37 PM EDT Comment:JACQUI Narrative Resulting Agency Comment Spec In Lab Milagros Hernandez MD MICROBIOLOGY - GENER AL ORDERABLES Performing Organization Address [facility] Co de Phone Number [facility] [address] * Lower Respiratory Culture Bronchial Alveolar Lavage (08/21/2022 4:50 PM EDT) Pathologist [facility] Lower Respiratory Culture Rare mixed bacterial morphotypes suggestive of normal upper respiratory wiley [facility] Gram Stain Few Neutrophils seen No squamous epithelial cells seen No microorganisms seen. [facility] Bronchial Alveolar Lavage 08/21/2022 4:50 PM EDT 08/21/2022 5:37 PM EDT Comment:JACQUI Narrative Resulting Agency Comment Spec In Lab Milagros Hernandez MD MICROBIOLOGY - GENER AL ORDERABLES Performing Organization Address City/[facility]/ZIP Co de Phone Number [facility] [address] * Cell Count, Bronchoalveolar Lavage (08/21/2022 4:45 PM EDT) Color BAL White [facility] Appearance, BAL Cloudy [facility] NUC, BAL Count 1,471 mcL [facility] Seg BAL 81 % [facility] Lymph, BAL 17 % [facility] Macrophage BAL 2 % [facility] Total Cells, BAL 200 Cells [facility] Bronchial Alveolar Lavage 08/21/2022 4:45 PM EDT 08/21/2022 5:36 PM EDT Narrative Resulting Agency Comment Spec In Lab Aileen Mayorga MD BODY FLUIDS AND STOO LS ORDERABLES Performing Organization Address City/[facility]/ZIP Co de Phone Number [facility] [place] [address] * Calcofluor White Stain (08/21/2022 4:45 PM EDT) Calcofluor Stain Calcofluor White Preparation: Negative [facility] Bronchial Alveolar Lavage 08/21/2022 4:45 PM EDT 08/21/2022 5:39 PM EDT Narrative Resulting Agency Comment Spec In Lab Reynaldo Avila MD MICROBIOLOGY - GENE RAL ORDERABLES Performing Organization Address City/[facility]/ZIP Co de Phone Number [facility] [address] * (ABNORMAL) Fungus culture (08/21/2022 4:45 PM EDT) Fungus Culture Rare Jacky albicans(A) [facility] Organism Jacky albicans(A) [facility] Bronchial Alveolar Lavage 08/21/2022 4:45 PM EDT 08/21/2022 5:39 PM EDT Narrative Resulting Agency Comment Spec In Lab Reynaldo Avila MD MICROBIOLOGY - GENE RAL ORDERABLES Performing Organization Address City/[facility]/[place] [address] * AFB culture Bronchial Alveolar Lavage (08/21/2022 4:45 PM EDT) Acid Fast Bacilli Culture No Acid Fast Bacilli isolated If active tuberculosis is suspected, the patient should be on [employer]. Call Infection Prevention for assistance if needed. [facility] Acid Fast Stain No Acid Fast Bacilli seen [facility] Bronchial Alveolar Lavage 08/21/2022 4:45 PM EDT 08/21/2022 5:39 PM EDT Narrative Resulting Agency Comment Spec In Lab Milagros Hernandez MD MICROBIOLOGY - GENER AL ORDERABLES Performing Organization Address [facility]/ZIP Co de Phone Number [facility] [address] * Lower Respiratory Culture Bronchial Alveolar Lavage (08/21/2022 4:45 PM EDT) Lower Respiratory Culture Rare mixed bacterial morphotypes suggestive of normal upper respiratory wiley [facility] Gram Stain Moderate Neutrophils seen No squamous epithelial cells seen No microorganisms seen. [facility] Bronchial Alveolar Lavage 08/21/2022 4:45 PM EDT 08/21/2022 5:39 PM EDT Narrative Resulting Agency Comment Spec In Lab Milagros Hernandez MD MICROBIOLOGY - GENER AL ORDERABLES Performing Organization Address [facility] Co de Phone Number [facility] [address] * Potassium (08/21/2022 3:45 PM EDT) Potassium 3.9 3.5 - 5.0 mmol/L [facility] Comment: Please note: ??Patients with [...] Pascal MD CHEMISTRY ORDERABLES Performing Organization Address [facility] Co de Phone Number [facility] [address] * POCT Glucose (08/21/2022 3:24 PM EDT) Glucose, POC 148 65 - 199 mg/dL [facility] Comment: Supplemental ranges: <140 mg/dL before meals <180 mg/dL all other times of the day Blood 08/21/2022 3:24 PM EDT 08/21/2022 3:24 PM EDT Milagros Hernandez MD POINT OF CARE TEST O RDERABLES [facility] [place] [address] * IR Ultrasound in IR (08/21/2022 3:09 [...] Glucose, POC 191 65 - 199 mg/dL [facility] Comment: Supplemental ranges: <140 mg/dL before meals <180 mg/dL all other times of the day Blood 08/21/2022 1:34 PM EDT 08/21/2022 1:34 PM EDT Milagros Hernandez MD POINT OF CARE TEST O RDERABLES Performing Organization Address City/[facility]/ZIP Co de Phone Number [facility] [address] * POCT Glucose (08/21/2022 12:58 PM EDT) Glucose, POC 196 65 - 199 mg/dL [facility] Comment: Supplemental ranges: <140 mg/dL before meals <180 mg/dL all other times of the day Blood 08/21/2022 12:5 8 PM EDT 08/21/2022 12:58 PM EDT Milagros Hernandez MD POINT OF CARE TEST O RDERABLES Performing Organization Address [facility] Co de Phone Number [facility] [address] * (ABNORMAL) CRP, acute inflammation (08/21/2022 12:00 PM EDT) C-Reactive Protein 19.4(H) <=4.9 mg/L [facility] Blood 08/21/2022 12:0 0 PM EDT 08/21/2022 12:24 PM EDT Narrative Resulting Agency Comment Spec In Lab Milagros Hernandez MD CHEMISTRY ORDERABLES Performing Organization Address [facility] Co de Phone Number [facility] [address] * (ABNORMAL) Sedimentation rate (08/21/2022 12:00 PM EDT) Sedimentation Rate Automated >119(H) 2 - 39 mm/hr [facility] Comment: Effective April 19, 2019 new capillary photometric technology has resulted in a change in reference ranges. It is recommended that each ESR result be reviewed with its own age appropriate reference range. Blood 08/21/2022 12:0 0 PM EDT 08/21/2022 12:24 PM EDT Narrative Resulting Agency Comment Spec In Lab Milagros Hernandez MD HEMATOLOGY ORDERABLE S Performing Organization Address [facility] Co de Phone Number [facility] [address] * POCT Glucose (08/21/2022 11:56 AM EDT) Pathologist [facility] Glucose, POC 182 65 - 199 mg/dL [facility] Comment: Supplemental ranges: <140 mg/dL before meals <180 mg/dL all other times of the day Blood 08/21/2022 11:5 6 AM EDT 08/21/2022 11:56 AM EDT Milagros Hernandez MD POINT OF CARE TEST O RDERABLES Performing Organization Address [facility] de Phone Number [facility] [address] * Potassium (08/21/2022 10:00 AM EDT) [facility] Potassium 4.4 3.5 - 5.0 mmol/L [facility] Comment: Please note: ??Patients with WBC [...] Cobb MD CHEMISTRY ORDERABLES Performing Organization Address [facility] Co de Phone Number [facility] [place] [address] * Ferritin (08/21/2022 10:00 AM EDT) Pathologist [facility] Ferritin 85 30 - 400 ng/mL [facility] Comment: Pediatric reference ranges not verified at [facility], interpret with caution. Reference ranges for females greater than 50 years of age approach values for men, i.e., 30-400 ng/mL. Blood 08/21/2022 10:0 0 AM EDT 08/21/2022 10:12 AM EDT Narrative Resulting Agency Comment Spec In Lab Carlos Terry MD CHEMISTRY ORDERABLES Performing Organization Address City/[facility]/ZIP Co de Phone Number [facility] [address] * (ABNORMAL) Iron and TIBC (08/21/2022 10:00 AM EDT) [facility] Iron 25(L) 30 - 150 mcg/dL [facility] TIBC 203(L) 250 - 450 mcg/dL [facility] Iron Saturation 12(L) 20 - 50 % [facility] Blood 08/21/2022 10:0 0 AM EDT 08/21/2022 10:12 AM EDT Narrative Resulting Agency Comment Spec In Lab Carlos Terry MD CHEMISTRY ORDERABLES Performing Organization Address City/[facility]/ZIP Co de Phone Number [facility] [address] * Histoplasma Antigen, Urine (08/21/2022 10:00 AM EDT) Pathologist [facility] U Histoplasma Ag (MAY) Not Detected Not Detected [facility] Comment: No Histoplasma antigen detected. False negative results may occur. ??Repeat testing on a new specimen should be considered if clinically indicated. Test Performed by: [facility] - [address] [address] Electronic Data Processing Auditor: Rock Lenoe M.D. Ph.D.; CLIA# [id number] U Histo Ag Value (MAY) Not Detected ng/mL [facility] Comment: ADDITIONAL INFORMATION This test has been modified from the mechanical unit repairer's instructions. Its performance characteristics were determined by [facility] in a manner consistent with CLIA requirements. This test has not been cleared or approved by the U.S. Food and Drug Administration. Test Performed by: [facility] - [facility] [address] [place] [address] Electronic Data Processing Auditor: Rock Leone M.D. Ph.D.; CLIA# [id number] Urine 08/21/2022 10:0 0 AM EDT 08/21/2022 1:15 PM EDT Narrative Resulting Agency Comment Spec In Lab Carlos Terry MD LAB SEND OUT ORDERAB LES Performing Organization Address [facility] [place]/[facility]/ZIP Co de Phone Number [facility] [place] [address] * POCT Glucose (08/21/2022 9:57 AM EDT) Glucose, POC 141 65 - 199 mg/dL [facility] Comment: Supplemental ranges: <140 mg/dL before meals <180 mg/dL all other times of the day Blood 08/21/2022 9:57 AM EDT 08/21/2022 9:57 AM EDT Milagros Hernandez MD POINT OF CARE TEST O RDERABLES Performing Organization Address City/[facility] Co de Phone Number [facility] [place] [address] * Aspergillus Antigen (08/21/2022 8:30 AM EDT) Aspergillus Ag (SEPTEMBER) <0.500 <0.5 Index [facility] Comment: ADDITIONAL INFORMATION This is a qualitative test and the resulted index value is not indicative of disease severity. ??Serial testing is recommended for patients at high risk for invasive aspergillosis. This assay was performed using the FDA-cleared [employer] Platelia Aspergillus Galactomannan EIA. Test Performed by: [facility] [facility] [place] [address] Electronic Data Processing Auditor: Rock Leone M.D. Ph.D.; CLIA# [id number] Blood 08/21/2022 8:30 AM EDT 08/21/2022 1:15 PM EDT Narrative Resulting Agency Comment Spec In Lab Carlos Terry MD LAB SEND OUT ORDERAB LES Performing Organization Address [facility] [place]/[facility] Co de Phone Number [facility] [place] [address] * POCT Glucose (08/21/2022 8:28 AM EDT) [facility] Glucose, POC 118 65 - 199 mg/dL [facility] Comment: Supplemental ranges: <140 mg/dL before meals <180 mg/dL all other times of the day Blood 08/21/2022 8:28 AM EDT 08/21/2022 8:28 AM EDT Carlos Terry MD POINT OF CARE TEST O RDERABLES Performing Organization Address [facility] Co de Phone Number [facility] [place] [address] * (ABNORMAL) Fungitell (1,2-Fcya-N-Glucan) (08/21/2022 8:00 AM EDT) [facility] Fungitell Quantitative Value (SEPTEMBER) >500(A) <60 pg/mL pg/mL [facility] Comment: Test Performed by: [facility] - [address] [address] Electronic Data Processing Auditor: Rock Leone M.D. Ph.D.; CLIA# [id number] Fungitell Qualitative Result (SEPTEMBER) Positive (A) Negative [facility] Comment: (1, 3) Yhgx-F-Rojzze detected. A single positive result should be [...] produce very low levels of (1, 3) Nmbs-W-Zoyttc (BDG) and the Mucorales (e.g., Lichthemia, Mucor and Rhizopus), which are not known to produce BDG. Additionally, the yeast phase of Blastomyces dermatitidis produces little BDG and may not be detected by this assay. ADDITIONAL INFORMATION This assay was performed using the FDA-cleared Fungitell Assay ([place], [place], [place]), a kinetic DALILA based on modification of the Limulus Amebocyte Lysate pathway. Test Performed by: [place] [address] Electronic Data Processing Auditor: Rock Leone M.D. Ph.D.; CLIA# [id number] Blood 08/21/2022 8:00 AM EDT 08/21/2022 1:15 PM EDT Narrative Resulting Agency Comment Spec In Lab Carlos Terry MD LAB SEND OUT ORDERAB LES [facility] [place] [address] * POCT Glucose (08/21/2022 7:50 AM EDT) Glucose, POC 130 65 - 199 mg/dL [facility] Comment: Supplemental ranges: <140 mg/dL before meals <180 mg/dL all other times of the day Blood 08/21/2022 7:50 AM EDT 08/21/2022 7:50 AM EDT Carlos Terry MD POINT OF CARE TEST O RDERABLES Performing Organization Address [facility] [place]/[facility] Co de Phone Number [facility] [address] * POCT Glucose (08/21/2022 6:06 AM EDT) Glucose, POC 141 65 - 199 mg/dL [facility] Comment: Supplemental ranges: <140 mg/dL before meals <180 mg/dL all other times of the day Blood 08/21/2022 6:06 AM EDT 08/21/2022 6:06 AM EDT Carlos Terry MD POINT OF CARE TEST O RDERABLES Performing Organization Address [facility] [place]/[facility] Co de Phone Number [facility] [address] * POCT Glucose (08/21/2022 3:48 AM EDT) Glucose, POC 187 65 - 199 mg/dL [facility] Comment: Supplemental ranges: <140 mg/dL before meals <180 mg/dL all other times of the day Blood 08/21/2022 3:48 AM EDT 08/21/2022 3:48 AM EDT Carlos Terry MD POINT OF CARE TEST O RDERAREYMUNDO Performing Organization Address [facility] [place]/[facility] Co de Phone Number [facility] [address] * (ABNORMAL) Differential, Automated (08/21/2022 3:46 AM EDT) Neutrophil % 79.8 % [facility] Neutrophil Absolute 16.69(H) 1.70 - 6.10 x10(3)/mc L [facility] Lymph % 9.2 % [facility] Lymphocytes Abs 1.9 0.9 - 3.2 x10(3)/mc L [facility] Monocyte % 6.2 % [facility] Monocyte Abs 1.3(H) 0.3 - 0.9 x10(3)/mc L [facility] Eos % 0.3 % [facility] Eosinophils Abs 0.1 0.0 - 0.4 x10(3)/ L [facility] Basophil % 0.2 % [facility] Baso Absolute 0.0 0.0 - 0.1 x10(3)/mc L [facility] Immature Gran % 4.30 % [facility] Comment: Immature granulocytes(IG's)percentage and absolute count will include metamyelocytes, myelocytes, and promyelocytes. Blood smears from CBCs yielding IG's will be scanned manually for concordance. If this scan disagrees with the automated IG or if promyelocytes are noted, a manual differential will be performed. Immature Gran Absolute 0.89(H) 0.00 - 0.04 x10(3)/ L [facility] Blood 08/21/2022 3:46 AM EDT 08/21/2022 3:58 AM EDT Narrative Resulting Agency Comment Spec In Lab Tyler Cobb MD HEMATOLOGY ORDERABLE S [facility] [address] * (ABNORMAL) Hemogram (08/21/2022 3:46 AM EDT) White Blood Cell 20.9(H) 4.0 - 9.5 x10(3)/mc L [facility] Red Blood Cell 3.68(L) 4.00 - 5.21 x10(6)/mc L [facility] Hemoglobin 7.4(L) 11.7 - 15.5 g/dL [facility] Hematocrit 24.2(L) 35.7 - 45.8 % [facility] Mean Cell Volume 65.8(L) 82.6 - 94.4 fL [facility] Mean Cell Hemoglobin 20.1(L) 27.1 - 32.0 pg [facility] Mean Cell Hemoglobin Concentration 30.6(L) 31.7 - 35.0 g/dL [facility] Platelet 381(H) 145 - 357 x10(3)/mc L [facility] RDW Standard Deviation 67.2(H) 37.0 - 46.0 fL [facility] RDW coefficient of variation 30.4(H) 11.5 - 14.1 % [facility] Mean Platelet Volume 10.1 7.6 - 12.9 fL [facility] NRBC% auto 0.5 % [facility] NRBC Absolute 0.110(H) 0.000 - 0.000 x10(3)/mc L [facility] Blood 08/21/2022 3:46 AM EDT 08/21/2022 3:58 AM EDT Narrative Resulting Agency Comment Spec In Lab Tyler Cobb MD HEMATOLOGY ORDERABLE S [facility] [address] * (ABNORMAL) Basic Metabolic Panel (non-fasting) (08/21/2022 3:46 AM EDT) Glucose 188 65 - 199 mg/dL [facility] Comment:Diabetes: >=200 mg/d L plus symptoms Blood Urea Nitrogen 22(H) 8 - 18 mg/dL [facility] Creatinine 0.60(L) 0.70 - 1.20 mg/dL [facility] Sodium 145 135 - 145 mmol/L [facility] Potassium 3.7 3.5 - 5.0 mmol/L [facility] Comment: Please note: ??Patients with WBC >100,000 may have falsely elevated Potassium levels. ??For accurate Potassium quantification in these patients send serum separator tube (gold top) for subsequent determinations. ??Contact the Clinical Chemistry Laboratory if there are any questions. Chloride 107 98 - 107 mmol/L [facility] Carbon Dioxide 31 22 - 31 mmol/L [facility] Anion Gap 7 5 - 15 mmol/L [facility] Calcium 8.7 8.5 - 10.5 mg/dL [facility] Est Glomerular Filtration Rate 101 >=60 mL/min/1. 73 m?? [facility] Comment: This patient's [...] Pascal MD CHEMISTRY ORDERABLES Performing Organization Address City/[facility]/ZIP Co de Phone Number [facility] [address] * (ABNORMAL) Phosphorus (08/21/2022 3:46 AM EDT) Phosphorus 2.4(L) 2.5 - 4.5 mg/dL [facility] Blood 08/21/2022 3:46 AM EDT 08/21/2022 3:58 AM EDT Narrative Resulting Agency Comment Spec In Lab Richard Pascal MD CHEMISTRY ORDERABLES Performing Organization Address [facility] [place]/[facility] Co de Phone Number [facility] [address] * Magnesium (08/21/2022 3:46 AM EDT) Magnesium 0.87 0.69 - 1.07 mmol/L [facility] Blood 08/21/2022 3:46 AM EDT 08/21/2022 3:58 AM EDT Narrative Resulting Agency Comment Spec In Lab Richard Pascal MD CHEMISTRY ORDERABLES Performing Organization Address [facility] [place]/[facility] Co de Phone Number [facility] [address] * (ABNORMAL) Lipase (08/21/2022 3:46 AM EDT) Lipase 178(H) 0 - 60 unit/L [facility] Blood 08/21/2022 3:46 AM EDT 08/21/2022 3:58 AM EDT Narrative Resulting Agency Comment Spec In Lab Carlos Terry MD CHEMISTRY ORDERABLES Performing Organization Address [facility] [place]/[facility] Co de Phone Number [facility] [address] * POCT Glucose (08/21/2022 1:57 AM EDT) Glucose, POC 167 65 - 199 mg/dL [facility] Comment: Supplemental ranges: <140 mg/dL before meals <180 mg/dL all other times of the day Blood 08/21/2022 1:57 AM EDT 08/21/2022 1:57 AM EDT Carlos Terry MD POINT OF CARE TEST O RDERABLES Performing Organization Address [facility] [place]/[facility] Co de Phone Number [facility] [address] * (ABNORMAL) POCT Glucose (08/20/2022 11:55 PM EDT) Glucose, POC 221(H) 65 - 199 mg/dL [facility] Comment: Supplemental ranges: <140 mg/dL before meals <180 mg/dL all other times of the day Blood 08/20/2022 11:5 5 PM EDT 08/20/2022 11:55 PM EDT Carlos Terry MD POINT OF CARE TEST O RDERABLES Performing Organization Address [facility] [place]/[facility] Co de Phone Number [facility] [place] [address] * CT Chest w Contrast (08/20/2022 11:04 [...] who have questions please contact the health coronary care unit nurse that requested your imaging [...] the diaphragm with tip not included the [id number]. There is some wall thickening of the [...] the duodenum, not fully included in the ylbzj-[id number]. Skeletal structures: No acute osseous findings. No [...] below the diaphragmwith tip not included the [id number]-mq-[id number]. There is some wall thickening of theesophagus. [...] portion the duodenum,not fully included in the [id number]. Skeletal structures: No acute osseous findings. No [...] patients who have questions please contactthe health coronary care unit nurse that requested your imaging first. Carlos Terry MD [facility] ORDERABLES * CT Hip w Contrast [...] who have questions please contact the health coronary care unit nurse that requested your imaging first. ? Narrative 08/21/2022 9:34 AM EDT EXAMINATION: CT [...] extremity 08/08/22. Hip radiograph 09/06/2022, intraprocedural radiograph -. FINDINGS: Bones/joints: Status post left [...] hip performed after administration of 110 mL [id number]. Coronal and sagittal reformats were obtained. COMPARISON: [...] 1.8 cm (series 9, image 251 and [id number], image 46), without rim enhancement to suggest [...] patients who have questions please contactthe health coronary care unit nurse that requested your imaging first. Carlos Terry MD IMG CT ORDERABLES * POCT Glucose (08/20/2022 9:54 PM EDT) Glucose, POC 195 65 - 199 mg/dL [facility] Comment: Supplemental ranges: <140 mg/dL before meals <180 mg/dL all other times of the day Blood 08/20/2022 9:54 PM EDT 08/20/2022 9:54 PM EDT Carlos Terry MD POINT OF CARE TEST O RDERABLES [facility] [place] [address] * POCT Glucose (08/20/2022 8:46 PM EDT) Glucose, POC 118 65 - 199 mg/dL [facility] Comment: Supplemental ranges: <140 mg/dL before meals <180 mg/dL all other times of the day Blood 08/20/2022 8:46 PM EDT 08/20/2022 8:46 PM EDT Carlos Terry MD POINT OF CARE TEST O RDERAREYMUNDO [facility] [place] [address] * POCT Glucose (08/20/2022 6:21 PM EDT) Glucose, POC 164 65 - 199 mg/dL [facility] Comment: Supplemental ranges: <140 mg/dL before meals <180 mg/dL all other times of the day Blood 08/20/2022 6:21 PM EDT 08/20/2022 6:21 PM EDT Carlos Terry MD POINT OF CARE TEST O RDERAREYMUNDO Performing Organization Address City/[facility] Co de Phone Number [facility] [address] * POCT Glucose (08/20/2022 4:27 PM EDT) Glucose, POC 180 65 - 199 mg/dL [facility] Comment: Supplemental ranges: <140 mg/dL before meals <180 mg/dL all other times of the day Blood 08/20/2022 4:27 PM EDT 08/20/2022 4:27 PM EDT Carlos Terry MD POINT OF CARE TEST O RDERAREYMUNDO Performing Organization Address [facility] Co de Phone Number [facility] [address] * POCT Glucose (08/20/2022 2:11 PM EDT) Glucose, POC 150 65 - 199 mg/dL [facility] Comment: Supplemental ranges: <140 mg/dL before meals <180 mg/dL all other times of the day Blood 08/20/2022 2:11 PM EDT 08/20/2022 2:11 PM EDT Carlos Terry MD POINT OF CARE TEST O GABRIELLA Performing Organization Address [facility] Co de Phone Number [facility] [address] * (ABNORMAL) Hepatic Function Panel (08/20/2022 2:00 PM EDT) Protein, Total 5.6(L) 6.1 - 8.0 g/dL [facility] Albumin 2.5(L) 3.2 - 5.2 g/dL [facility] Aspartate Aminotransferase 39(H) 0 - 30 unit/L [facility] Alanine Aminotransferase 20 0 - 30 unit/L [facility] Alkaline Phosphatase 213(H) 35 - 105 unit/L [facility] Bilirubin, Total <0.2(L) 0.2 - 1.3 mg/dL [facility] Bilirubin, Direct 0.1 0.0 - 0.3 mg/dL [facility] Blood 08/20/2022 2:00 PM EDT 08/20/2022 2:20 PM EDT Narrative Resulting Agency Comment Spec In Lab Carlos Terry MD CHEMISTRY ORDERABLES Performing Organization Address City/[facility]/ZIP Co de Phone Number [facility] [place] [address] * TSH [place] (08/20/2022 2:00 PM EDT) Thyroid Stimulating Hormone 1.90 0.27 - 4.20 mcIU/mL [facility] Comment: Reference Interval (mcIU/mL): Females: ??First Trimester: 0.23-3.88 ??Second Trimester: 0.22-3.90 ??Third Trimester: 0.44-4.66 Blood 08/20/2022 2:00 PM EDT 08/20/2022 2:20 PM EDT Narrative Resulting Agency Comment Spec In Lab Carlos Terry MD CHEMISTRY ORDERABLES Performing Organization Address [facility] [place]/[facility] Co de Phone Number [facility] [address] * POCT Glucose (08/20/2022 12:13 PM EDT) Glucose, POC 163 65 - 199 mg/dL [facility] Comment: Supplemental ranges: <140 mg/dL before meals <180 mg/dL all other times of the day Blood 08/20/2022 12:1 3 PM EDT 08/20/2022 12:13 PM EDT Carlos Terry MD POINT OF CARE TEST O RDERABLES Performing Organization Address City/[facility]/ZIP Co de Phone Number [facility] [address] * POCT Glucose (08/20/2022 10:05 AM EDT) Glucose, POC 196 65 - 199 mg/dL [facility] Comment: Supplemental ranges: <140 mg/dL before meals <180 mg/dL all other times of the day Blood 08/20/2022 10:0 5 AM EDT 08/20/2022 10:05 AM EDT Carlos Terry MD POINT OF CARE TEST O RDERAREYMUNDO [facility] [place] [address] * (ABNORMAL) POCT Glucose (08/20/2022 7:26 AM EDT) Glucose, POC 233(H) 65 - 199 mg/dL [facility] Comment: Supplemental ranges: <140 mg/dL before meals <180 mg/dL all other times of the day Blood 08/20/2022 7:26 AM EDT 08/20/2022 7:26 AM EDT Carlos Terry MD POINT OF CARE TEST O HUGHERAREYMUNDO [facility] [place] [address] * POCT Glucose (08/20/2022 6:31 AM EDT) Glucose, POC 190 65 - 199 mg/dL [facility] Comment: Supplemental ranges: <140 mg/dL before meals <180 mg/dL all other times of the day Blood 08/20/2022 6:31 AM EDT 08/20/2022 6:31 AM EDT Carlos Terry MD POINT OF CARE TEST O RDERAREYMUNDO [facility] [place] [address] * (ABNORMAL) BLOOD GAS 2 ARTERIAL (08/20/2022 5:41 AM EDT) pH, Arterial 7.56(H) 7.35 - 7.45 [facility] PCO2, Arterial 31(L) 35 - 45 mmHg [facility] PO2, Arterial 92 85 - 104 mmHg [facility] Bicarbonate, Arterial 27.3(H) 20.0 - 26.0 mmol/L [facility] Base Excess, Arterial 5.0(H) -3.0 - 3.0 mmol/L [facility] Hgb Blood Gas 8.5(L) 11.7 - 15.5 g/dL [facility] Oxyhemoglobin, Arterial 96.0 94.0 - 97.0 % [facility] Carboxyhemoglob in, Arterial 0.3 % [facility] Comment: Nonsmokers: 0.5-1.5% COHB Smokers: Variable, but usually less than 10% Toxic: 20-30% COHB Lethal: Greater than 60% COHB Methemoglobin, Arterial 0.9 <=1.5 % [facility] Na Whole Blood 141 135 - 145 mmol/L [facility] K Whole Blood 3.6 3.5 - 5.0 mmol/L [facility] Comment: Please note: Patients with WBC >100,000 may have falsely elevated Potassium levels. Contact the Clinical Chemistry Laboratory if there are any questions. ICa Whole Blood 1.15 1.15 - 1.33 mmol/L [facility] Comment: Note: ??Total bilirubin higher than 20 mg/dL may lead to falsely low ionized calcium. CL Whole Blood 110(H) 98 - 107 mmol/L [facility] Gluc Whole Bld 160 65 - 199 mg/dL [facility] Comment:Diabetes: >=200 mg/d L plus symptoms. Lactate WB 1.6 0.5 - 2.2 mmol/L [facility] FIO2 Art 30 % [facility] PF Ratio Art 307 [facility] Blood 08/20/2022 5:41 AM EDT 08/20/2022 5:41 AM EDT Carlos Terry MD POINT OF CARE TEST O RDERABLES [facility] [place] [address] * POCT Glucose (08/20/2022 4:29 AM EDT) Glucose, POC 114 65 - 199 mg/dL [facility] Comment: Supplemental ranges: <140 mg/dL before meals <180 mg/dL all other times of the day Blood 08/20/2022 4:29 AM EDT 08/20/2022 4:29 AM EDT Carlos Terry MD POINT OF CARE TEST O GABRIELLA [facility] [place] [address] * POCT Glucose (08/20/2022 3:53 AM EDT) Glucose, POC 114 65 - 199 mg/dL [facility] Comment: Supplemental ranges: <140 mg/dL before meals <180 mg/dL all other times of the day Blood 08/20/2022 3:53 AM EDT 08/20/2022 3:53 AM EDT Carlos Terry MD POINT OF CARE TEST O GABRIELLA Performing Organization Address City/[facility]/ZIP Co de Phone Number [facility] [place] [address] * POCT Glucose (08/20/2022 2:05 AM EDT) Glucose, POC 140 65 - 199 mg/dL [facility] Comment: Supplemental ranges: <140 mg/dL before meals <180 mg/dL all other times of the day Blood 08/20/2022 2:05 AM EDT 08/20/2022 2:05 AM EDT Carlos Terry MD POINT OF CARE TEST O GABRIELLA [facility] [place] [address] * Scan, Peripheral Blood (08/20/2022 12:30 AM EDT) Plat estimate Normal [facility] RBC Morphology Abnormal [facility] Macrocyte 1-5 /HPF [place] [facility] Microcyte gtr than 10 /HPF [facility] Hypochromia Moderate [facility] Polychromasia Present >5/HPF [facility] Ovalocytes 1-5 /HPF [facility] Target Cells 1-5 /HPF [facility] Blood 08/20/2022 12:3 0 AM EDT 08/20/2022 12:32 AM EDT Narrative Resulting Agency Comment Spec In Lab Tyler Cobb MD HEMATOLOGY ORDERABLE S [facility] [address] * (ABNORMAL) Differential, Automated (08/20/2022 12:30 AM EDT) Neutrophil % 77.6 % [facility] Neutrophil Absolute 21.72(H) 1.70 - 6.10 x10(3)/mc L [facility] Lymph % 8.3 % [facility] Lymphocytes Abs 2.3 0.9 - 3.2 x10(3)/mc L [facility] Monocyte % 6.5 % [facility] Monocyte Abs 1.8(H) 0.3 - 0.9 x10(3)/mc L [facility] Eos % 0.2 % [facility] Eosinophils Abs 0.0 0.0 - 0.4 x10(3)/mc L [facility] Basophil % 0.3 % [facility] Baso Absolute 0.1 0.0 - 0.1 x10(3)/mc L [facility] Immature Gran % 7.10 % [facility] Comment: Immature granulocytes(IG's)percentage and absolute count will include metamyelocytes, myelocytes, and promyelocytes. Blood smears from CBCs yielding IG's will be scanned manually for concordance. If this scan disagrees with the automated IG or if promyelocytes are noted, a manual differential will be performed. Immature Gran Absolute 2.00(H) 0.00 - 0.04 x10(3)/mc L [facility] Blood 08/20/2022 12:3 0 AM EDT 08/20/2022 12:32 AM EDT Narrative Resulting Agency Comment Spec In Lab Tyler Cobb MD HEMATOLOGY ORDERABLE S [facility] [address] * (ABNORMAL) Hemogram (08/20/2022 12:30 AM EDT) White Blood Cell 28.0(H) 4.0 - 9.5 x10(3)/[facility] Red Blood Cell 4.08 4.00 - 5.21 x10(6)/[facility] Hemoglobin 8.2(L) 11.7 - 15.5 g/dL [facility] Hematocrit 26.4(L) 35.7 - 45.8 % [facility] Mean Cell Volume 64.7(L) 82.6 - 94.4 fL [facility] Mean Cell Hemoglobin 20.1(L) 27.1 - 32.0 pg [facility] Mean Cell Hemoglobin Concentration 31.1(L) 31.7 - 35.0 g/dL [facility] Platelet 351 145 - 357 x10(3)/ L [facility] RDW Standard Deviation 63.9(H) 37.0 - 46.0 fL [facility] RDW coefficient of variation 29.8(H) 11.5 - 14.1 % [facility] Mean Platelet Volume 10.1 7.6 - 12.9 fL [facility] NRBC% auto 0.8 % [facility] NRBC Absolute 0.230(H) 0.000 - 0.000 x10(3)/ L [facility] Blood 08/20/2022 12:3 0 AM EDT 08/20/2022 12:32 AM EDT Narrative Resulting Agency Comment Spec In Lab Tyler Cobb MD HEMATOLOGY ORDERABLE S Performing Organization Address City/[facility]/ZIP Co de Phone Number [facility] [address] * (ABNORMAL) Basic Metabolic Panel (non-fasting) (08/20/2022 12:30 AM EDT) Glucose 188 65 - 199 mg/dL [facility] Comment:Diabetes: >=200 mg/d L plus symptoms Blood Urea Nitrogen 21(H) 8 - 18 mg/dL [facility] Creatinine 0.55(L) 0.70 - 1.20 mg/dL [facility] Sodium 144 135 - 145 mmol/L [facility] Potassium 4.1 3.5 - 5.0 mmol/L [facility] Comment: Please note: ??Patients with WBC >100,000 may have falsely elevated Potassium levels. ??For accurate Potassium quantification in these patients send serum separator tube (gold top) for subsequent determinations. ??Contact the Clinical Chemistry Laboratory if there are any questions. Chloride 107 98 - 107 mmol/L [facility] Carbon Dioxide 28 22 - 31 mmol/L [facility] Anion Gap 9 5 - 15 mmol/L [facility] Calcium 8.5 8.5 - 10.5 mg/dL [facility] Est Glomerular Filtration Rate 104 >=60 mL/min/1. 73 m?? [facility] Comment: This patient's estimated GFR was [...] In Lab Richard Pascal MD CHEMISTRY ORDERABLES [facility] [address] * (ABNORMAL) Phosphorus (08/20/2022 12:30 AM EDT) Phosphorus 1.7(L) 2.5 - 4.5 mg/dL [facility] Blood 08/20/2022 12:3 0 AM EDT 08/20/2022 12:32 AM EDT Narrative Resulting Agency Comment Spec In Lab Richard Pascal MD CHEMISTRY ORDERABLES Performing Organization Address [facility] Co de Phone Number [facility] [address] * Magnesium (08/20/2022 12:30 AM EDT) Magnesium 0.94 0.69 - 1.07 mmol/L [facility] Blood 08/20/2022 12:3 0 AM EDT 08/20/2022 12:32 AM EDT Narrative Resulting Agency Comment Spec In Lab Richard Pascal MD CHEMISTRY ORDERABLES Performing Organization Address [facility] Co de Phone Number [facility] [address] * POCT Glucose (08/20/2022 12:27 AM EDT) Glucose, POC 177 65 - 199 mg/dL [facility] Comment: Supplemental ranges: <140 mg/dL before meals <180 mg/dL all other times of the day Blood 08/20/2022 12:2 7 AM EDT 08/20/2022 12:27 AM EDT Carlos Terry MD POINT OF CARE TEST O RDERABLES Performing Organization Address [facility] Co de Phone Number [facility] [address] * (ABNORMAL) POCT Glucose (08/19/2022 11:34 PM EDT) Glucose, POC 200(H) 65 - 199 mg/dL [facility] Comment: Supplemental ranges: <140 mg/dL before meals <180 mg/dL all other times of the day Blood 08/19/2022 11:3 4 PM EDT 08/19/2022 11:34 PM EDT Carlos Terry MD POINT OF CARE TEST O GABRIELLA Performing Organization Address City/[facility]/ZIP Co de Phone Number [facility] [address] * (ABNORMAL) POCT Glucose (08/19/2022 10:32 PM EDT) Glucose, POC 200(H) 65 - 199 mg/dL [facility] Comment: Supplemental ranges: <140 mg/dL before meals <180 mg/dL all other times of the day Blood 08/19/2022 10:3 2 PM EDT 08/19/2022 10:32 PM EDT Carlos Terry MD POINT OF CARE TEST O GABRIELLA Performing Organization Address [facility] Co de Phone Number [facility] [address] * MRI Brain wo Contrast (08/19/2022 10:15 [...] who have questions please contact the health coronary care unit nurse that requested your imaging [...] patients who have questions please contactthe health coronary care unit nurse that requested your imaging first. Carlos Terry MD IMG MRI ORDERABLES * POCT Glucose (08/19/2022 7:08 PM EDT) Glucose, POC 165 65 - 199 mg/dL [facility] Comment: Supplemental ranges: <140 mg/dL before meals <180 mg/dL all other times of the day Blood 08/19/2022 7:08 PM EDT 08/19/2022 7:08 PM EDT Carlos Terry MD POINT OF CARE TEST O RDERABLES Performing Organization Address City/[facility]/ZIP Co de Phone Number [facility] [address] * POCT Glucose (08/19/2022 6:03 PM EDT) Glucose, POC 172 65 - 199 mg/dL [facility] Comment: Supplemental ranges: <140 mg/dL before meals <180 mg/dL all other times of the day Blood 08/19/2022 6:03 PM EDT 08/19/2022 6:03 PM EDT Carlos Terry MD POINT OF CARE TEST O RDERABLES [facility] [place] [address] * Blood culture (08/19/2022 5:20 PM EDT) Blood Culture No growth at 5 days. [facility] Blood 08/19/2022 5:20 PM EDT 08/19/2022 6:53 PM EDT Comment:RA Narrative Resulting Agency Comment Spec In Lab Carlos Terry MD MICROBIOLOGY - BLOOD ORDERABLES [facility] [place] [address] * POCT Glucose (08/19/2022 5:08 PM EDT) Glucose, POC 154 65 - 199 mg/dL [facility] Comment: Supplemental ranges: <140 mg/dL before meals <180 mg/dL all other times of the day Blood 08/19/2022 5:08 PM EDT 08/19/2022 5:08 PM EDT Carlos Terry MD POINT OF CARE TEST O GABRIELLA [facility] [address] * Place BEDSIDE PICC Line: Contact Vascular Access Page [phone] Is PICC procedure required PRIOR to patients discharge? No (08/19/2022 4:51 PM EDT) Narrative Carlos Arnold RN - 08/19/2022 4:51 PM EDT Carlos Arnold RN ? 08/19/2022 ??4:55 PM PICC/Midline Insertion Procedure Note Indications: Medication Administration This insertion was not to replace a malfunctioning catheter. This insertion was not due to a suspected line-associated infection. Location of Procedure: [facility] Risks and Benefits: The risks and [...] to the planned procedure. Hand Hygiene: The watch supervisor did perform hand hygiene prior to line insertion. Catheter type: PICC Lot number: [id number] Procedure Technique: Skin was prepped with chlorhexidine. [...] No Complications. Procedure Comments: Placed at bedside CARLSO ARNOLD RN 08/19/2022 Carlos Terry MD PROCEDURE/MINOR [...] who have questions please contact the health coronary care unit nurse that requested your imaging first. ? Narrative 08/19/2022 4:39 PM EDT EXAMINATION: XR [...] patients who have questions please contactthe health coronary care unit nurse that requested your imaging first. Carlos Terry MD IMG DX ORDERABLES * POCT Glucose (08/19/2022 3:15 PM EDT) Glucose, POC 177 65 - 199 mg/dL [facility] Comment: Supplemental ranges: <140 mg/dL before meals <180 mg/dL all other times of the day Blood 08/19/2022 3:15 PM EDT 08/19/2022 3:15 PM EDT Carlos Terry MD POINT OF CARE TEST O RDERABLES [facility] [place] [address] * Lower Respiratory Culture Sputum Induced (08/19/2022 2:51 PM EDT) Lower Respiratory Culture Rare mixed bacterial morphotypes suggestive of normal upper respiratory wiley [facility] Gram Stain Many Neutrophils seen Few squamous epithelial cells seen No microorganisms seen. [facility] Sputum Induced 08/19/2022 2: 51 PM EDT 08/19/2022 3:47 PM EDT Narrative Resulting Agency Comment Spec In Lab Carlos Terry MD MICROBIOLOGY - GENER AL ORDERABLES [facility] [place] [address] * Lactate, whole blood, send to lab ([facility]) (08/19/2022 2:45 PM EDT) Lactate WB 1.6 0.5 - 2.2 mmol/L [facility] Blood 08/19/2022 2:45 PM EDT 08/19/2022 2:58 PM EDT Narrative Resulting Agency Comment Spec In Lab Carlos Terry MD CHEMISTRY ORDERABLES Performing Organization Address [facility] Co de Phone Number [facility] [address] * (ABNORMAL) Urinalysis Microscopic Exam (08/19/2022 2:30 PM EDT) Pathologist [facility] RBC, Urine 1 0 - 4 /HPF [facility] WBC, Urine 3 0 - 5 /HPF [facility] Bacteria, Urine Rare(A) None /HPF [facility] Budding Yeast, Urine Occasiona l(A) None /HPF [facility] Comment: Interpret results with caution, microscopic results are from suboptimal specimen volume Hyphae Yeast, Urine Occasiona l(A) None /HPF [facility] Squamous Epithelial Cells Raw Data, Urine 1 <=4 /HPF [facility] Hyaline Casts, Urine 2 0 - 2 /LPF [facility] Indwelling Catheter Urine 08/19/2022 2:30 PM EDT 08/19/2022 3:12 PM EDT Narrative Resulting Agency Comment Spec In Lab Neva Tomlin MD URINE ORDERABLES Performing Organization Address City/[facility]/ZIP Co de Phone Number [facility] [address] * (ABNORMAL) Urinalysis with reflex Culture (08/19/2022 2:30 PM EDT) Glucose, Urine Dipstick 100(A) Negative mg/dL [facility] Protein, Urine Dipstick 30(A) Negative mg/dL [facility] Bilirubin, Urine Dipstick Negative Negative mg/dL [facility] Comment: Clinical correlation required for positive Urine Bilirubin results as false positive may occur with some drugs and drug related products. If a false positive is suspected a serum total bilirubin should be considered if clinically indicated. Urobilinogen, Urine Dipstick Normal Normal mg/dL [facility] pH, Urn (dipstick) 5.5 5.0 - 8.0 [facility] Blood, Urine Dipstick Large(A) Negative mg/dL [facility] Ketone, Urine Dipstick Negative Negative mg/dL [facility] Nitrite, Urine Dipstick Negative Negative [facility] Leukocytes, Urine Dipstick Trace(A) Negative mcL [facility] Appearance, Urine Dipstick Clear Clear [facility] Specific [place] Urine Automated 1.018 1.005 - 1.030 [facility] Color, Urine Dipstick Yellow Yellow [facility] Reflex to Culture No [facility] Indwelling Catheter Urine 08/19/2022 2:30 PM EDT 08/19/2022 3:12 PM EDT Narrative Resulting Agency Comment Spec In Lab Carlos Terry MD URINE ORDERABLES Performing Organization Address [facility] Co de Phone Number [facility] [address] * Phosphorus (08/19/2022 1:45 PM EDT) Phosphorus 2.9 2.5 - 4.5 mg/dL [facility] Blood Venous Draw / Unknown 08/19/2022 1:45 PM EDT 08/19/2022 2:05 PM EDT Narrative Resulting Agency Comment Spec In Lab Neva Tomlin MD CHEMISTRY ORDERABLES Performing Organization Address [facility] Co de Phone Number [facility] [address] * (ABNORMAL) Basic Metabolic Panel (non-fasting) (08/19/2022 1:45 PM EDT) Glucose 224(H) 65 - 199 mg/dL [facility] Comment:Diabetes: >=200 mg/d L plus symptoms Blood Urea Nitrogen 20(H) 8 - 18 mg/dL [facility] Creatinine 0.59(L) 0.70 - 1.20 mg/dL [facility] Sodium 145 135 - 145 mmol/L [facility] Potassium 4.1 3.5 - 5.0 mmol/L [facility] Comment: Please note: ??Patients with WBC >100,000 may have falsely elevated Potassium levels. ??For accurate Potassium quantification in these patients send serum separator tube (gold top) for subsequent determinations. ??Contact the Clinical Chemistry Laboratory if there are any questions. Chloride 106 98 - 107 mmol/L [facility] Carbon Dioxide 29 22 - 31 mmol/L [facility] Anion Gap 10 5 - 15 mmol/L [facility] Calcium 8.6 8.5 - 10.5 mg/dL [facility] Est Glomerular Filtration Rate 102 >=60 mL/min/1. 73 m?? [facility] Comment: This patient's estimated GFR was [...] In Lab Carlos Terry MD CHEMISTRY ORDERABLES [facility] [address] * Blood culture (08/19/2022 1:30 PM EDT) Blood Culture No growth at 5 days. [facility] Blood 08/19/2022 1:30 PM EDT 08/19/2022 2:15 PM EDT Comment:L Hand Narrative Resulting Agency Comment Spec In Lab Carlos Terry MD MICROBIOLOGY - BLOOD ORDERABLES [facility] [place] [address] * XR Chest One View (08/19/2022 12:30 [...] who have questions please contact the health coronary care unit nurse that requested your imaging first. ? Narrative 08/19/2022 3:14 PM EDT EXAMINATION: XR CHEST ONE VIEW CLINICAL HISTORY: febrile, altered, leukocytosis TECHNIQUE: 1 view of the chest ; AP portable 20 degrees upright COMPARISON: Chest radiograph 08/16/2022 FINDINGS: ET tube tip measures 3.0 cm above consuelo. Enteric catheter descends below the diaphragm and below the [id number]. Interval removal of right IJ approach PA [...] catheter descends below the diaphragm and below [id number]. Interval removal of right IJ approach PA [...] patients who have questions please contactthe health coronary care unit nurse that requested your imaging first. Carlos Terry MD IMG DX ORDERABLES * POCT Glucose (08/19/2022 11:35 AM EDT) Glucose, POC 186 65 - 199 mg/dL [facility] Comment: Supplemental ranges: <140 mg/dL before meals <180 mg/dL all other times of the day Blood 08/19/2022 11:3 5 AM EDT 08/19/2022 11:35 AM EDT Carlos Terry MD POINT OF CARE TEST O RDERABLES [facility] [place] [address] * ECHO LMTD W CONTRAST W LMTD SPEC DOPP COLOR DOPP (08/19/2022 11:30 AM EDT) Pathologist [facility] EF 32 HEARTLAB SYSTEM Anatomical Region Laterality Modality Cardiac Other 08/19/2022 10:4 7 AM EDT Narrative 08/19/2022 12:04 PM EDT ? Echocardiogram Report Name: ISHAN IRVING ? Study Date: 08/19/2022 10:47 AMBP: 110/57 mmHg ? Patient Location: [facility] CV24 A HR: 110 : 1960 ? Height: 152 cm ? Account: [id number] Age: 62 yrs ? Weight: 73 kg Gender: Female ?BSA: 1.7 m2 Ordering Physician: CARLOS TERRY Referring Physician: NIURKA AYALA Performed By: Thu Croft RDCS Reason For Study: Shock Interpreting Fellow: Hang Moreno. Exam Location: [facility]. Interpretation Summary -Left ventricular systolic function is [...] been no significant change. Procedure Limited - 94008. Doppler - 07026. Color Doppler - 28281. Image enhancement Optison was used for left [...] Date: 0:47 AMBP: 110/57 mmHg Patient Location: [place] [address] A HR: 110 : 1960 Height: 152 cm Account: [id number] Age: 62 yrs Weight: 73 kg Gender: Female BSA: 1.7 m2 Ordering Physician: CARLOS TERRY Referring Physician: NIURKA AYALA Performed By: Thu Croft RDCS Reason For Study: Shock Interpreting Fellow: Hang Moreno. Exam Location: [facility]. Interpretation Summary -Left ventricular systolic function is [...] has been no significantchange. Procedure Limited - 07512. Doppler - 70359. Color Doppler - 12591. Image enhancementOptison was used for left ventricular [...] Glucose, POC 189 65 - 199 mg/dL [facility] Comment: Supplemental ranges: <140 mg/dL before meals <180 mg/dL all other times of the day Blood 08/19/2022 9:49 AM EDT 08/19/2022 9:49 AM EDT Carlos Terry MD POINT OF CARE TEST O RDERABLES [facility] [address] * (ABNORMAL) POCT Glucose (08/19/2022 7:57 AM EDT) Glucose, POC 229(H) 65 - 199 mg/dL [facility] Comment: Supplemental ranges: <140 mg/dL before meals <180 mg/dL all other times of the day Blood 08/19/2022 7:57 AM EDT 08/19/2022 7:57 AM EDT Carlos Terry MD POINT OF CARE TEST O RDERABLES [facility] [address] * (ABNORMAL) POCT Glucose (08/19/2022 6:58 AM EDT) Glucose, POC 215(H) 65 - 199 mg/dL [facility] Comment: Supplemental ranges: <140 mg/dL before meals <180 mg/dL all other times of the day Blood 08/19/2022 6:58 AM EDT 08/19/2022 6:58 AM EDT Carlos Terry MD POINT OF CARE TEST O GABRIELLA Performing Organization Address [facility] Co de Phone Number [facility] [address] * (ABNORMAL) BLOOD GAS 2 ARTERIAL (08/19/2022 5:07 AM EDT) pH, Arterial 7.54(H) 7.35 - 7.45 [facility] PCO2, Arterial 31(L) 35 - 45 mmHg [facility] PO2, Arterial 73(L) 85 - 104 mmHg [facility] Bicarbonate, Arterial 25.7 20.0 - 26.0 mmol/L [facility] Base Excess, Arterial 3.1(H) -3.0 - 3.0 mmol/L [facility] Hgb Blood Gas 9.3(L) 11.7 - 15.5 g/dL [facility] Oxyhemoglobin, Arterial 94.1 94.0 - 97.0 % [facility] Carboxyhemoglob in, Arterial 0.2 % [facility] Comment: Nonsmokers: 0.5-1.5% COHB Smokers: Variable, but usually less than 10% Toxic: 20-30% COHB Lethal: Greater than 60% COHB Methemoglobin, Arterial 0.9 <=1.5 % [facility] Na Whole Blood 142 135 - 145 mmol/L [facility] K Whole Blood 3.7 3.5 - 5.0 mmol/L [facility] Comment: Please note: Patients with WBC >100,000 may have falsely elevated Potassium levels. Contact the Clinical Chemistry Laboratory if there are any questions. ICa Whole Blood 1.14(L) 1.15 - 1.33 mmol/L [facility] Comment: Note: ??Total bilirubin higher than 20 mg/dL may lead to falsely low ionized calcium. CL Whole Blood 111(H) 98 - 107 mmol/L [facility] Gluc Whole Bld 178 65 - 199 mg/dL [facility] Comment:Diabetes: >=200 mg/d L plus symptoms. Lactate WB 1.2 0.5 - 2.2 mmol/L [facility] FIO2 Art 30 % [facility] PF Ratio Art 243 [facility] Blood 08/19/2022 5:07 AM EDT 08/19/2022 5:07 AM EDT Carlos Terry MD POINT OF CARE TEST O RDERAREYMUNDO Performing Organization Address [facility] Co de Phone Number [facility] [address] * POCT Glucose (08/19/2022 3:08 AM EDT) Glucose, POC 176 65 - 199 mg/dL [facility] Comment: Supplemental ranges: <140 mg/dL before meals <180 mg/dL all other times of the day Blood 08/19/2022 3:08 AM EDT 08/19/2022 3:08 AM EDT Carlos Terry MD POINT OF CARE TEST O GABRIELLA Performing Organization Address [facility] Co de Phone Number [facility] [address] * CK (08/19/2022 1:20 AM EDT) Creatine Kinase 32 0 - 160 unit/L [facility] Blood Venous Draw / Unknown 08/19/2022 1:20 AM EDT 08/19/2022 1:26 AM EDT Narrative Resulting Agency Comment Spec In Lab Neva Tomlin MD CHEMISTRY ORDERABLES Performing Organization Address City/[facility]/ZIP Co de Phone Number [facility] [address] * (ABNORMAL) Differential, Automated (08/19/2022 1:20 AM EDT) Neutrophil % 68.0 % [facility] Neutrophil Absolute 19.24(H) 1.70 - 6.10 x10(3)/mc L [facility] Lymph % 10.4 % [facility] Lymphocytes Abs 2.9 0.9 - 3.2 x10(3)/mc L [facility] Monocyte % 8.1 % [facility] Monocyte Abs 2.3(H) 0.3 - 0.9 x10(3)/mc L [facility] Eos % 0.4 % [facility] Eosinophils Abs 0.1 0.0 - 0.4 x10(3)/mc L [facility] Basophil % 0.6 % [facility] Baso Absolute 0.2(H) 0.0 - 0.1 x10(3)/mc L [facility] Immature Gran % 12.50 % [facility] [facility] Comment: Immature granulocytes(IG's)percentage and absolute count will include metamyelocytes, myelocytes, and promyelocytes. Blood smears from CBCs yielding IG's will be scanned manually for concordance. If this scan disagrees with the automated IG or if promyelocytes are noted, a manual differential will be performed. Immature Gran Absolute 3.52(H) 0.00 - 0.04 x10(3)/mc L [facility] Blood 08/19/2022 1:20 AM EDT 08/19/2022 1:25 AM EDT Narrative Resulting Agency Comment Spec In Lab Tyler Cobb MD HEMATOLOGY ORDERABLE S Performing Organization Address City/[facility]/[place] [address] * (ABNORMAL) Hemogram (08/19/2022 1:20 AM EDT) White Blood Cell 28.3(H) 4.0 - 9.5 x10(3)/mc L [facility] Red Blood Cell 4.35 4.00 - 5.21 x10(6)/mc L [facility] Hemoglobin 8.7(L) 11.7 - 15.5 g/dL [facility] Hematocrit 27.9(L) 35.7 - 45.8 % [facility] Mean Cell Volume 64.1(L) 82.6 - 94.4 fL [facility] Mean Cell Hemoglobin 20.0(L) 27.1 - 32.0 pg [facility] Mean Cell Hemoglobin Concentration 31.2(L) 31.7 - 35.0 g/dL [facility] Platelet 301 145 - 357 x10(3)/mc L [facility] RDW Standard Deviation 63.6(H) 37.0 - 46.0 fL [facility] RDW coefficient of variation 29.2(H) 11.5 - 14.1 % [facility] Mean Platelet Volume Not Measured 7.6 - 12.9 fL [facility] NRBC% auto 1.0 % [facility] NRBC Absolute 0.290(H) 0.000 - 0.000 x10(3)/ L [facility] Blood 08/19/2022 1:20 AM EDT 08/19/2022 1:25 AM EDT Narrative Resulting Agency Comment Spec In Lab Tyler Cobb MD HEMATOLOGY ORDERABLE S [facility] [place] [address] * (ABNORMAL) Basic Metabolic Panel (non-fasting) (08/19/2022 1:20 AM EDT) Glucose 187 65 - 199 mg/dL [facility] Comment:Diabetes: >=200 mg/d L plus symptoms Blood Urea Nitrogen 18 8 - 18 mg/dL [facility] Creatinine 0.50(L) 0.70 - 1.20 mg/dL [facility] Sodium 142 135 - 145 mmol/L [facility] Potassium 3.8 3.5 - 5.0 mmol/L [facility] Comment: Please note: ??Patients with WBC >100,000 may have falsely elevated Potassium levels. ??For accurate Potassium quantification in these patients send serum separator tube (gold top) for subsequent determinations. ??Contact the Clinical Chemistry Laboratory if there are any questions. Chloride 108(H) 98 - 107 mmol/L [facility] Carbon Dioxide 25 22 - 31 mmol/L [facility] Anion Gap 9 5 - 15 mmol/L [facility] Calcium 8.4(L) 8.5 - 10.5 mg/dL [facility] Est Glomerular Filtration Rate 106 >=60 mL/min/1. 73 m?? [facility] Comment: This patient's estimated GFR was [...] Pascal MD CHEMISTRY ORDERABLES Performing Organization Address [facility] Co de Phone Number [facility] [place] [address] * (ABNORMAL) Phosphorus (08/19/2022 1:20 AM EDT) Phosphorus 1.4(Critic al) 2.5 - 4.5 mg/dL [facility] Comment:Called by: CORTNEY, Read back by: DIOMEDES LOCKHART, Date/Time:08/19/22 02:18. Blood 08/19/2022 1:20 AM EDT 08/19/2022 1:25 AM EDT Narrative Resulting Agency Comment Spec In Lab Richard Pascal MD CHEMISTRY ORDERABLES Performing Organization Address City/[facility]/ZIP Co de Phone Number [facility] [place] [address] * Magnesium (08/19/2022 1:20 AM EDT) Magnesium 0.83 0.69 - 1.07 mmol/L [facility] Blood 08/19/2022 1:20 AM EDT 08/19/2022 1:25 AM EDT Narrative Resulting Agency Comment Spec In Lab Richard Pascal MD CHEMISTRY ORDERABLES [facility] [place] [address] * POCT Glucose (08/19/2022 1:19 AM EDT) Glucose, POC 169 65 - 199 mg/dL [facility] Comment: Supplemental ranges: <140 mg/dL before meals <180 mg/dL all other times of the day Blood 08/19/2022 1:19 AM EDT 08/19/2022 1:19 AM EDT Carlos Terry MD POINT OF CARE TEST O RDERABLES Performing Organization Address City/[facility] Co de Phone Number [facility] [place] [address] * POCT Glucose (08/18/2022 11:03 PM EDT) Glucose, POC 171 65 - 199 mg/dL [facility] Comment: Supplemental ranges: <140 mg/dL before meals <180 mg/dL all other times of the day Blood 08/18/2022 11:0 3 PM EDT 08/18/2022 11:03 PM EDT Carlos Terry MD POINT OF CARE TEST O RDERABLES Performing Organization Address City/[facility]/ZIP Co de Phone Number [facility] [place] [address] * POCT Glucose (08/18/2022 9:05 PM EDT) Glucose, POC 148 65 - 199 mg/dL [facility] Comment: Supplemental ranges: <140 mg/dL before meals <180 mg/dL all other times of the day Blood 08/18/2022 9:05 PM EDT 08/18/2022 9:05 PM EDT Carlos Terry MD POINT OF CARE TEST O RDERABLES [facility] [place] [address] * POCT Glucose (08/18/2022 7:51 PM EDT) Glucose, POC 144 65 - 199 mg/dL [facility] Comment: Supplemental ranges: <140 mg/dL before meals <180 mg/dL all other times of the day Blood 08/18/2022 7:51 PM EDT 08/18/2022 7:51 PM EDT Carlos Terry MD POINT OF CARE TEST O RDERAREYMUNDO [facility] [place] [address] * POCT Glucose (08/18/2022 6:31 PM EDT) Glucose, POC 175 65 - 199 mg/dL [facility] Comment: Supplemental ranges: <140 mg/dL before meals <180 mg/dL all other times of the day Blood 08/18/2022 6:31 PM EDT 08/18/2022 6:31 PM EDT Carlos Terry MD POINT OF CARE TEST O RDERABLES [facility] [place] [address] * POCT Glucose (08/18/2022 4:56 PM EDT) Glucose, POC 166 65 - 199 mg/dL [facility] Comment: Supplemental ranges: <140 mg/dL before meals <180 mg/dL all other times of the day Blood 08/18/2022 4:56 PM EDT 08/18/2022 4:56 PM EDT Carlos Terry MD POINT OF CARE TEST O GABRIELLA [facility] [place] [address] * (ABNORMAL) POCT Glucose (08/18/2022 3:35 PM EDT) Glucose, POC 207(H) 65 - 199 mg/dL [facility] Comment: Supplemental ranges: <140 mg/dL before meals <180 mg/dL all other times of the day Blood 08/18/2022 3:35 PM EDT 08/18/2022 3:35 PM EDT Carlos Terry MD POINT OF CARE TEST O GABRIELLA Performing Organization Address City/[facility]/ZIP Co de Phone Number [facility] [place] [address] * CT Head wo Contrast (Generic) (08/18/2022 [...] who have questions please contact the health coronary care unit nurse that requested your imaging [...] patients who have questions please contactthe health coronary care unit nurse that requested your imaging first. Carlos Terry MD IMG CT ORDERABLES * POCT Glucose (08/18/2022 2:38 PM EDT) Glucose, POC 194 65 - 199 mg/dL [facility] Comment: Supplemental ranges: <140 mg/dL before meals <180 mg/dL all other times of the day Blood 08/18/2022 2:38 PM EDT 08/18/2022 2:38 PM EDT Carlos Terry MD POINT [place] [address] * EEG ROUTINE (08/18/2022 2:19 PM EDT) Narrative Tyree Martin MD - 08/18/2022 2:19 PM EDT Tyree Martin MD ? 08/18/2022 ??8:46 PM [facility] Department of Neurology Inpatient Routine EEG Report [...] bipolar, DM, EtOH, esophagitis, who presented to [facility] 3 days ago after being found unresponsive at home. ??Patient found to have likely pneumonia +/- aspiration, newly reduced EF. ??Patient not on any sedation, not waking up. MEDICATIONS: -Depakote 500 mg x1 dose -Fentanyl gtt stopped 08/17 -Propofol gtt stopped 08/17 PRIOR EEG(s): -N/A METHODS: A 21 channel digitized electroencephalogram was performed in the [facility] Clinical Neurophysiology Laboratory. The 10/20 international system of electrode placement was used and bipolar and referential electrode montages were recorded. ??In addition to EEG the patient was monitored for EKG and lateral/vertical eye movements. Video was recorded during the session. RAISE DRILLER'S REPORT: Performed by: Glendy MARCUS Patient was [...] final interpretation as written. Tyree Martin MD [facility] Epilepsy Program Department of Neurology Carlos Terry MD NEUROLOGY ORDERABLES * POCT Glucose (08/18/2022 1:53 PM EDT) Glucose, POC 174 65 - 199 mg/dL [facility] Comment: Supplemental ranges: <140 mg/dL before meals <180 mg/dL all other times of the day Blood 08/18/2022 1:53 PM EDT 08/18/2022 1:53 PM EDT Carlos Terry MD POINT OF CARE TEST O RDERABLES Performing Organization Address City/[facility] Co de Phone Number [facility] [place] [address] * POCT Glucose (08/18/2022 12:30 PM EDT) Glucose, POC 129 65 - 199 mg/dL [facility] Comment: Supplemental ranges: <140 mg/dL before meals <180 mg/dL all other times of the day Blood 08/18/2022 12:3 0 PM EDT 08/18/2022 12:30 PM EDT Carlos Terry MD POINT OF CARE TEST O RDERABLES Performing Organization Address [facility] Co de Phone Number [facility] [place] [address] * POCT Glucose (08/18/2022 11:12 AM EDT) Glucose, POC 113 65 - 199 mg/dL [facility] Comment: Supplemental ranges: <140 mg/dL before meals <180 mg/dL all other times of the day Blood 08/18/2022 11:1 2 AM EDT 08/18/2022 11:12 AM EDT Carlos Terry MD POINT OF CARE TEST O RDERABLES Performing Organization Address [facility] Co de Phone Number [facility] [address] * POCT Glucose (08/18/2022 10:37 AM EDT) Glucose, POC 121 65 - 199 mg/dL [facility] Comment: Supplemental ranges: <140 mg/dL before meals <180 mg/dL all other times of the day Blood 08/18/2022 10:3 7 AM EDT 08/18/2022 10:37 AM EDT Carlos Terry MD POINT OF CARE TEST O RDERABLES [facility] [place] [address] * Legionella Urinary Antigen (08/18/2022 10:13 AM EDT) Legionella Urinary Antigen Negative Negative [facility] Comment: A negative Legionella Urinary [...] - GENER AL ORDERABLES Performing Organization Address [facility] de Phone Number [facility] [address] * POCT Glucose (08/18/2022 7:36 AM EDT) Pathologist [facility] Glucose, POC 175 65 - 199 mg/dL [facility] Comment: Supplemental ranges: <140 mg/dL before meals <180 mg/dL all other times of the day Blood 08/18/2022 7:36 AM EDT 08/18/2022 7:36 AM EDT Carlos Terry MD POINT OF CARE TEST O RDERABLES Performing Organization Address [facility] Co de Phone Number [facility] [address] * (ABNORMAL) BLOOD GAS 2 ARTERIAL (08/18/2022 6:15 AM EDT) pH, Arterial 7.51(H) 7.35 - 7.45 [facility] PCO2, Arterial 30(L) 35 - 45 mmHg [facility] PO2, Arterial 62(L) 85 - 104 mmHg [facility] Bicarbonate, Arterial 23.2 20.0 - 26.0 mmol/L [facility] Base Excess, Arterial 0.2 -3.0 - 3.0 mmol/L [facility] Hgb Blood Gas 10.2(L) 11.7 - 15.5 g/dL [facility] Oxyhemoglobin, Arterial 91.5(L) 94.0 - 97.0 % [facility] Carboxyhemoglob in, Arterial 0.5 % [facility] Comment: Nonsmokers: 0.5-1.5% COHB Smokers: Variable, but usually less than 10% Toxic: 20-30% COHB Lethal: Greater than 60% COHB Methemoglobin, Arterial 0.7 <=1.5 % [facility] Na Whole Blood 136 135 - 145 mmol/L [facility] K Whole Blood 3.7 3.5 - 5.0 mmol/L [facility] Comment: Please note: Patients with WBC >100,000 may have falsely elevated Potassium levels. Contact the Clinical Chemistry Laboratory if there are any questions. ICa Whole Blood 1.16 1.15 - 1.33 mmol/L [facility] Comment: Note: ??Total bilirubin higher than 20 mg/dL may lead to falsely low ionized calcium. CL Whole Blood 104 98 - 107 mmol/L [facility] Gluc Whole Bld 219(H) 65 - 199 mg/dL [facility] Comment:Diabetes: >=200 mg/d L plus symptoms. Lactate WB 1.6 0.5 - 2.2 mmol/L [facility] FIO2 Art 30 % [facility] PF Ratio Art 207 [facility] Blood 08/18/2022 6:15 AM EDT 08/18/2022 6:15 AM EDT Carlos Terry MD POINT OF CARE TEST O RDERABLES [facility] [place] [address] * POCT Glucose (08/18/2022 2:31 AM EDT) Glucose, POC 176 65 - 199 mg/dL [facility] Comment: Supplemental ranges: <140 mg/dL before meals <180 mg/dL all other times of the day Blood 08/18/2022 2:31 AM EDT 08/18/2022 2:31 AM EDT Carlos Terry MD POINT OF CARE TEST O RDERABLES Performing Organization Address City/[facility]/[place] [address] * Scan, Peripheral Blood (08/18/2022 2:30 AM EDT) Plat estimate Normal [facility] RBC Morphology Abnormal [facility] Microcyte 6-10 /HPF [facility] Hypochromia Moderate [facility] Ovalocytes 1-5 /HPF [facility] ITAL [facility] Connor Cells 6-10 /HPF [facility] Plat, Giant Less than 1 /HPF [facility] Blood 08/18/2022 2:30 AM EDT 08/18/2022 2:36 AM EDT Narrative Resulting Agency Comment Spec In Lab Tyler Cobb MD HEMATOLOGY ORDERABLE S Performing Organization Address [facility] Co de Phone Number [facility] [address] * (ABNORMAL) Differential, Automated (08/18/2022 2:30 AM EDT) Neutrophil % 69.7 % [facility] Neutrophil Absolute 16.91(H) 1.70 - 6.10 x10(3)/mc L [facility] Lymph % 8.7 % [facility] Lymphocytes Abs 2.1 0.9 - 3.2 x10(3)/mc L [facility] Monocyte % 8.4 % [facility] Monocyte Abs 2.0(H) 0.3 - 0.9 x10(3)/mc L [facility] Eos % 0.5 % [facility] Eosinophils Abs 0.1 0.0 - 0.4 x10(3)/mc L [facility] Basophil % 0.7 % [facility] Baso Absolute 0.2(H) 0.0 - 0.1 x10(3)/mc L [facility] Immature Gran % 12.00 % [facility] Comment: Immature granulocytes(IG's)percentage and absolute count will include metamyelocytes, myelocytes, and promyelocytes. Blood smears from CBCs yielding IG's will be scanned manually for concordance. If this scan disagrees with the automated IG or if promyelocytes are noted, a manual differential will be performed. Immature Gran Absolute 2.90(H) 0.00 - 0.04 x10(3)/mc L [facility] Blood 08/18/2022 2:30 AM EDT 08/18/2022 2:36 AM EDT Narrative Resulting Agency Comment Spec In Lab Tyler Cobb MD HEMATOLOGY ORDERABLE S [facility] [address] * (ABNORMAL) Hemogram (08/18/2022 2:30 AM EDT) White Blood Cell 24.3(H) 4.0 - 9.5 x10(3)/mc L [facility] Red Blood Cell 4.39 4.00 - 5.21 x10(6)/mc L [facility] Hemoglobin 9.0(L) 11.7 - 15.5 g/dL [facility] Hematocrit 28.2(L) 35.7 - 45.8 % [facility] Mean Cell Volume 64.2(L) 82.6 - 94.4 fL [facility] Mean Cell Hemoglobin 20.5(L) 27.1 - 32.0 pg [facility] Mean Cell Hemoglobin Concentration 31.9 31.7 - 35.0 g/dL [facility] Platelet 226 145 - 357 x10(3)/mc L [facility] RDW Standard Deviation 63.0(H) 37.0 - 46.0 fL [facility] RDW coefficient of variation 29.1(H) 11.5 - 14.1 % [facility] Mean Platelet Volume Not Measured 7.6 - 12.9 fL [facility] NRBC% auto 0.2 % [facility] NRBC Absolute 0.050(H) 0.000 - 0.000 x10(3)/mc L [facility] Blood 08/18/2022 2:30 AM EDT 08/18/2022 2:36 AM EDT Narrative Resulting Agency Comment Spec In Lab Tyler Cobb MD HEMATOLOGY ORDERABLE S [facility] [address] * (ABNORMAL) Basic Metabolic Panel (non-fasting) (08/18/2022 2:30 AM EDT) Glucose 178 65 - 199 mg/dL [facility] Comment:Diabetes: >=200 mg/d L plus symptoms Blood Urea Nitrogen 25(H) 8 - 18 mg/dL [facility] Creatinine 0.67(L) 0.70 - 1.20 mg/dL [facility] Sodium 139 135 - 145 mmol/L [facility] Potassium 4.2 3.5 - 5.0 mmol/L [facility] Comment: Please note: ??Patients with WBC >100,000 may have falsely elevated Potassium levels. ??For accurate Potassium quantification in these patients send serum separator tube (gold top) for subsequent determinations. ??Contact the Clinical Chemistry Laboratory if there are any questions. Chloride 104 98 - 107 mmol/L [facility] Carbon Dioxide 25 22 - 31 mmol/L [facility] Anion Gap 10 5 - 15 mmol/L [facility] Calcium 8.4(L) 8.5 - 10.5 mg/dL [facility] Est Glomerular Filtration Rate 99 >=60 mL/min/1. 73 m?? [facility] Comment: This patient's estimated GFR was [...] Pascal MD CHEMISTRY ORDERABLES Performing Organization Address [facility] de Phone Number [facility] [address] * (ABNORMAL) Phosphorus (08/18/2022 2:30 AM EDT) Phosphorus 1.2(Critic al) 2.5 - 4.5 mg/dL [facility] Comment:Called by: IRMA, Read back by: Conner Kelsey, Date/Time:08/18/22 03:39. Blood 08/18/2022 2:30 AM EDT 08/18/2022 2:36 AM EDT Narrative Resulting Agency Comment Spec In Lab Richard Pascal MD CHEMISTRY ORDERABLES Performing Organization Address [facility] de Phone Number [facility] [place] [address] * Magnesium (08/18/2022 2:30 AM EDT) Magnesium 1.02 0.69 - 1.07 mmol/L [facility] Blood 08/18/2022 2:30 AM EDT 08/18/2022 2:36 AM EDT Narrative Resulting Agency Comment Spec In Lab Richard Pascal MD CHEMISTRY ORDERABLES Performing Organization Address [facility] de Phone Number [facility] [address] * POCT Glucose (08/18/2022 1:15 AM EDT) Glucose, POC 168 65 - 199 mg/dL [facility] Comment: Supplemental ranges: <140 mg/dL before meals <180 mg/dL all other times of the day Blood 08/18/2022 1:15 AM EDT 08/18/2022 1:15 AM EDT Carlos Terry MD POINT OF CARE TEST O RDERABLES Performing Organization Address City/[facility] Co de Phone Number [facility] [place] [address] * POCT Glucose (08/17/2022 11:04 PM EDT) Glucose, POC 188 65 - 199 mg/dL [facility] Comment: Supplemental ranges: <140 mg/dL before meals <180 mg/dL all other times of the day Blood 08/17/2022 11:0 4 PM EDT 08/17/2022 11:04 PM EDT Carlos Terry MD POINT OF CARE TEST O GABRIELLA Performing Organization Address [facility] Co de Phone Number [facility] [place] [address] * Potassium (08/17/2022 9:29 PM EDT) Potassium 3.5 3.5 - 5.0 mmol/L [facility] Comment: Please note: ??Patients with WBC [...] Pascal MD CHEMISTRY ORDERABLES Performing Organization Address [facility] Co de Phone Number [facility] [place] [address] * POCT Glucose (08/17/2022 8:06 PM EDT) Glucose, POC 161 65 - 199 mg/dL [facility] Comment: Supplemental ranges: <140 mg/dL before meals <180 mg/dL all other times of the day Blood 08/17/2022 8:06 PM EDT 08/17/2022 8:06 PM EDT Carlos Terry MD POINT OF CARE TEST O RDERABLES [facility] [place] [address] * POCT Glucose (08/17/2022 6:47 PM EDT) Glucose, POC 169 65 - 199 mg/dL [facility] Comment: Supplemental ranges: <140 mg/dL before meals <180 mg/dL all other times of the day Blood 08/17/2022 6:47 PM EDT 08/17/2022 6:47 PM EDT Carlos Terry MD POINT OF CARE TEST O RDERABLES Performing Organization Address City/[facility]/ZIP Co de Phone Number [facility] [place] [address] * POCT Glucose (08/17/2022 5:42 PM EDT) Glucose, POC 189 65 - 199 mg/dL [facility] Comment: Supplemental ranges: <140 mg/dL before meals <180 mg/dL all other times of the day Blood 08/17/2022 5:42 PM EDT 08/17/2022 5:42 PM EDT Carlos Terry MD POINT OF CARE TEST O RDERABLES Performing Organization Address City/[facility]/ZIP Co de Phone Number [facility] [place] [address] * POCT Glucose (08/17/2022 4:44 PM EDT) Glucose, POC 195 65 - 199 mg/dL [facility] Comment: Supplemental ranges: <140 mg/dL before meals <180 mg/dL all other times of the day Blood 08/17/2022 4:44 PM EDT 08/17/2022 4:44 PM EDT Carlos Terry MD POINT OF CARE TEST O RDERABLES [facility] [place] [address] * Potassium (08/17/2022 3:15 PM EDT) Potassium 3.6 3.5 - 5.0 mmol/L [facility] Comment: Please note: ??Patients with WBC [...] Pascal MD CHEMISTRY ORDERABLES Performing Organization Address [facility] Co de Phone Number [facility] [place] [address] * Vancomycin Level, Random (08/17/2022 3:15 PM EDT) Pathologist [facility] Vancomycin, Random 19.2 mg/L [facility] Comment: This level is for determination of the patient's vancomycin yqsn-yujmm-bee-curve (AUC) value. Contact the inpatient pharmacy for interpretation. Blood 08/17/2022 3:15 PM EDT 08/17/2022 3:25 PM EDT Carlos Terry MD CHEMISTRY ORDERABLES Performing Organization Address [facility] Co de Phone Number [facility] [place] [address] * POCT Glucose (08/17/2022 3:10 PM EDT) Glucose, POC 140 65 - 199 mg/dL [facility] Comment: Supplemental ranges: <140 mg/dL before meals <180 mg/dL all other times of the day Blood 08/17/2022 3:10 PM EDT 08/17/2022 3:10 PM EDT Carlos Teryr MD POINT OF CARE TEST O RDERABLES Performing Organization Address City/[facility]/ZIP Co de Phone Number [facility] [place] [address] * POCT Glucose (08/17/2022 1:41 PM EDT) Glucose, POC 130 65 - 199 mg/dL [facility] Comment: Supplemental ranges: <140 mg/dL before meals <180 mg/dL all other times of the day Blood 08/17/2022 1:41 PM EDT 08/17/2022 1:41 PM EDT Carlos Terry MD POINT OF CARE TEST O RDERABLES [facility] [place] [address] * XR Abdomen 1 view (Generic) (08/17/2022 [...] who have questions please contact the health coronary care unit nurse that requested your imaging [...] patients who have questions please contactthe health coronary care unit nurse that requested your imaging first. Carlos Terry MD IMG DX ORDERABLES * POCT Glucose (08/17/2022 11:31 AM EDT) [facility] Signature Glucose, POC 146 65 - 199 mg/dL [facility] Comment: Supplemental ranges: <140 mg/dL before meals <180 mg/dL all other times of the day Blood 08/17/2022 11:3 1 AM EDT 08/17/2022 11:31 AM EDT Carlos Terry MD POINT OF CARE TEST O RDERABLES [facility] [place] [address] * POCT Glucose (08/17/2022 9:27 AM EDT) Glucose, POC 170 65 - 199 mg/dL [facility] Comment: Supplemental ranges: <140 mg/dL before meals <180 mg/dL all other times of the day Blood 08/17/2022 9:27 AM EDT 08/17/2022 9:27 AM EDT Carlos Terry MD POINT OF CARE TEST O RDERAREYMUNDO [facility] [place] [address] * POCT Glucose (08/17/2022 7:50 AM EDT) Glucose, POC 158 65 - 199 mg/dL [facility] Comment: Supplemental ranges: <140 mg/dL before meals <180 mg/dL all other times of the day Blood 08/17/2022 7:50 AM EDT 08/17/2022 7:50 AM EDT Carlos Terry MD POINT OF CARE TEST O RDERABLES [facility] [place] [address] * POCT Glucose (08/17/2022 6:53 AM EDT) Glucose, POC 155 65 - 199 mg/dL [facility] Comment: Supplemental ranges: <140 mg/dL before meals <180 mg/dL all other times of the day Blood 08/17/2022 6:53 AM EDT 08/17/2022 6:53 AM EDT Carlos Terry MD POINT OF CARE TEST O RDERABLES Performing Organization Address City/[facility] Co de Phone Number [facility] [place] [address] * POCT Glucose (08/17/2022 6:18 AM EDT) Glucose, POC 166 65 - 199 mg/dL [facility] Comment: Supplemental ranges: <140 mg/dL before meals <180 mg/dL all other times of the day Blood 08/17/2022 6:18 AM EDT 08/17/2022 6:18 AM EDT Carlos Terry MD POINT OF CARE TEST O RDERABLES Performing Organization Address [facility] de Phone Number [facility] [address] * Heparin (unfractionated) Level (08/17/2022 6:15 AM EDT) UF Heparin 0.48 IU/mL [facility] Comment: Heparin (anti-Xa) [...] Lab Carlos Terry MD HEMATOLOGY ORDERABLE S [facility] [place] [address] * POCT Glucose (08/17/2022 5:20 AM EDT) Glucose, POC 165 65 - 199 mg/dL [facility] Comment: Supplemental ranges: <140 mg/dL before meals <180 mg/dL all other times of the day Blood 08/17/2022 5:20 AM EDT 08/17/2022 5:20 AM EDT Carlos Terry MD POINT OF CARE TEST O RDERABLES Performing Organization Address [facility] Co de Phone Number [facility] [address] * POCT Glucose (08/17/2022 4:19 AM EDT) Glucose, POC 128 65 - 199 mg/dL [facility] Comment: Supplemental ranges: <140 mg/dL before meals <180 mg/dL all other times of the day Blood 08/17/2022 4:19 AM EDT 08/17/2022 4:19 AM EDT Carlos Terry MD POINT OF CARE TEST O RDERABLES Performing Organization Address [facility]/ZIP Co de Phone Number [facility] [address] * POCT Glucose (08/17/2022 2:51 AM EDT) Glucose, POC 129 65 - 199 mg/dL [facility] Comment: Supplemental ranges: <140 mg/dL before meals <180 mg/dL all other times of the day Blood 08/17/2022 2:51 AM EDT 08/17/2022 2:51 AM EDT Carlos Terry MD POINT OF CARE TEST O RDERABLES Performing Organization Address City/[facility]/ZIP Co de Phone Number [facility] [place] [address] * POCT Glucose (08/17/2022 2:05 AM EDT) Glucose, POC 144 65 - 199 mg/dL [facility] Comment: Supplemental ranges: <140 mg/dL before meals <180 mg/dL all other times of the day Blood 08/17/2022 2:05 AM EDT 08/17/2022 2:05 AM EDT Carlos Terry MD POINT OF CARE TEST O GABRIELLA [facility] [place] [address] * POCT Glucose (08/17/2022 1:36 AM EDT) Glucose, POC 147 65 - 199 mg/dL [facility] Comment: Supplemental ranges: <140 mg/dL before meals <180 mg/dL all other times of the day Blood 08/17/2022 1:36 AM EDT 08/17/2022 1:36 AM EDT Carlos Terry MD POINT OF CARE TEST O GABRIELLA Performing Organization Address City/[facility]/ZIP Co de Phone Number [facility] [place] [address] * POCT Glucose (08/17/2022 1:07 AM EDT) Glucose, POC 134 65 - 199 mg/dL [facility] Comment: Supplemental ranges: <140 mg/dL before meals <180 mg/dL all other times of the day Blood 08/17/2022 1:07 AM EDT 08/17/2022 1:07 AM EDT Carlos Terry MD POINT OF CARE TEST O GABRIELLA [facility] [place] [address] * (ABNORMAL) Basic Metabolic Panel (non-fasting) (08/17/2022 12:45 AM EDT) Glucose 157 65 - 199 mg/dL [facility] Comment:Diabetes: >=200 mg/d L plus symptoms Blood Urea Nitrogen 36(H) 8 - 18 mg/dL [facility] Creatinine 1.10 0.70 - 1.20 mg/dL [facility] Sodium 136 135 - 145 mmol/L [facility] Potassium Not Perf 3.5 - 5.0 [facility] Comment: Duplicate order Please note: ??Patients with WBC >100,000 may have falsely elevated Potassium levels. ??For accurate Potassium quantification in these patients send serum separator tube (gold top) for subsequent determinations. ??Contact the Clinical Chemistry Laboratory if there are any questions. Chloride 101 98 - 107 mmol/L [facility] Carbon Dioxide Not Perf 22 - 31 [facility] Comment:Add-on request. Samyulia le too old to perform test. Anion Gap Unable to Calculate 5 - 15 mmol/L [facility] Calcium 8.3(L) 8.5 - 10.5 mg/dL [facility] Est Glomerular Filtration Rate 57(L) >=60 mL/min/1 .73 m?? [facility] Comment: This patient's estimated GFR was [...] In Lab Tyler Cobb MD CHEMISTRY ORDERABLES [facility] [place] [address] * Potassium (08/17/2022 12:45 AM EDT) Potassium 4.6 3.5 - 5.0 mmol/L [facility] Comment: Please note: ??Patients with WBC [...] In Lab Tyler Cobb MD CHEMISTRY ORDERABLES [facility] [address] * (ABNORMAL) Differential, Automated (08/17/2022 12:45 AM EDT) Neutrophil % 75.1 % [facility] Neutrophil Absolute 13.95(H) 1.70 - 6.10 x10(3)/mc L [facility] Lymph % 9.5 % [facility] Lymphocytes Abs 1.8 0.9 - 3.2 x10(3)/mc L [facility] Monocyte % 9.5 % [facility] Monocyte Abs 1.8(H) 0.3 - 0.9 x10(3)/mc L [facility] Eos % 0.5 % [facility] Eosinophils Abs 0.1 0.0 - 0.4 x10(3)/mc L [facility] Basophil % 0.4 % [facility] Baso Absolute 0.1 0.0 - 0.1 x10(3)/mc L [facility] Immature Gran % 5.00 % [facility] Comment: Immature granulocytes(IG's)percentage and absolute count will include metamyelocytes, myelocytes, and promyelocytes. Blood smears from CBCs yielding IG's will be scanned manually for concordance. If this scan disagrees with the automated IG or if promyelocytes are noted, a manual differential will be performed. Immature Gran Absolute 0.93(H) 0.00 - 0.04 x10(3)/mc L [facility] Blood 08/17/2022 12:4 5 AM EDT 08/17/2022 12:57 AM EDT Narrative Resulting Agency Comment Spec In Lab Tyler Cobb MD HEMATOLOGY ORDERABLE S [facility] [address] * (ABNORMAL) Hemogram (08/17/2022 12:45 AM EDT) White Blood Cell 18.6(H) 4.0 - 9.5 x10(3)/mc L [facility] Red Blood Cell 4.00 4.00 - 5.21 x10(6)/mc L [facility] Hemoglobin 8.2(L) 11.7 - 15.5 g/dL [facility] Hematocrit 26.0(L) 35.7 - 45.8 % [facility] Mean Cell Volume 65.0(L) 82.6 - 94.4 fL [facility] Mean Cell Hemoglobin 20.5(L) 27.1 - 32.0 pg [facility] Mean Cell Hemoglobin Concentration 31.5(L) 31.7 - 35.0 g/dL [facility] Platelet 176 145 - 357 x10(3)/mc L [facility] RDW Standard Deviation 64.0(H) 37.0 - 46.0 fL [facility] RDW coefficient of variation 29.0(H) 11.5 - 14.1 % [facility] Mean Platelet Volume Not Measured 7.6 - 12.9 fL [facility] NRBC% auto 0.1 % [facility] NRBC Absolute 0.020(H) 0.000 - 0.000 x10(3)/mc L [facility] Blood 08/17/2022 12:4 5 AM EDT 08/17/2022 12:57 AM EDT Narrative Resulting Agency Comment Spec In Lab Tyler Cobb MD HEMATOLOGY ORDERABLE S [facility] [place] [address] * Heparin (unfractionated) Level (08/17/2022 12:45 AM EDT) [facility] UF Heparin 0.19 IU/mL [facility] Comment: Heparin (anti-Xa) [...] MD HEMATOLOGY ORDERABLE S Performing Organization Address City/[facility] Co de Phone Number [facility] [place] [address] * (ABNORMAL) Phosphorus (08/17/2022 12:45 AM EDT) [facility] Phosphorus 2.2(L) 2.5 - 4.5 mg/dL [facility] Blood 08/17/2022 12:4 5 AM EDT 08/17/2022 12:57 AM EDT Narrative Resulting Agency Comment Spec In Lab Richard Pascal MD CHEMISTRY ORDERABLES Performing Organization Address [facility] [place] [place] [address] * Magnesium (08/17/2022 12:45 AM EDT) [facility] Magnesium 0.89 0.69 - 1.07 mmol/L [facility] Blood 08/17/2022 12:4 5 AM EDT 08/17/2022 12:57 AM EDT Narrative Resulting Agency Comment Spec In Lab Richard Pascal MD CHEMISTRY ORDERABLES Performing Organization Address [facility] Co de Phone Number [facility] [address] * POCT Glucose (08/17/2022 12:02 AM EDT) Glucose, POC 147 65 - 199 mg/dL [facility] Comment: Supplemental ranges: <140 mg/dL before meals <180 mg/dL all other times of the day Blood 08/17/2022 12:0 2 AM EDT 08/17/2022 12:02 AM EDT Carlos Terry MD POINT OF CARE TEST O RDERABLES Performing Organization Address [facility] Co de Phone Number [facility] [place] [address] * POCT Glucose (08/16/2022 11:13 PM EDT) Glucose, POC 154 65 - 199 mg/dL [facility] Comment: Supplemental ranges: <140 mg/dL before meals <180 mg/dL all other times of the day Blood 08/16/2022 11:1 3 PM EDT 08/16/2022 11:13 PM EDT Carlos Terry MD POINT OF CARE TEST O RDERAREYMUNDO Performing Organization Address [facility] Co de Phone Number [facility] [place] [address] * CT Head wo Contrast (Generic) (08/16/2022 [...] who have questions please contact the health coronary care unit nurse that requested your imaging first. ? Electronically signed by: Moustapha Correa MD, [facility] ([phone]), at 08/16/2022 11:19 PM Narrative 08/16/2022 11:19 [...] patients who have questions please contactthe health coronary care unit nurse that requested your imaging first. Carlos Terry MD IMG CT ORDERABLES * POCT Glucose (08/16/2022 10:12 PM EDT) Glucose, POC 184 65 - 199 mg/dL [facility] Comment: Supplemental ranges: <140 mg/dL before meals <180 mg/dL all other times of the day Blood 08/16/2022 10:1 2 PM EDT 08/16/2022 10:12 PM EDT Carlos Terry MD POINT OF CARE TEST O RDERABLES Performing Organization Address City/[facility]/ZIP Co de Phone Number [facility] [place] [address] * POCT Glucose (08/16/2022 9:23 PM EDT) Glucose, POC 183 65 - 199 mg/dL [facility] Comment: Supplemental ranges: <140 mg/dL before meals <180 mg/dL all other times of the day Blood 08/16/2022 9:23 PM EDT 08/16/2022 9:23 PM EDT Carlos Terry MD POINT OF CARE TEST O RDERABLES Performing Organization Address City/[facility] Co de Phone Number [facility] [place] [address] * (ABNORMAL) Coox2 (08/16/2022 8:12 PM EDT) pO2, Coox 29 mmHg [facility] Hgb Blood Gas 9.3(L) 11.7 - 15.5 g/dL [facility] Oxyhemoglobin, Coox 56.6 % [facility] Carboxyhemoglo bin, Coox 0.2 % [facility] Comment: Nonsmokers: 0.5-1.5% COHB Smokers: Variable, but usually less than 10% Toxic: 20-30% COHB Lethal: Greater than 60% COHB Methemoglobin, Coox 1.3 <=1.5 % [facility] Source Coox Mixed Venous [facility] Blood 08/16/2022 8:12 PM EDT 08/16/2022 8:12 PM EDT Carlos Terry MD POINT OF CARE TEST O RDERABLES [facility] [address] [place] [address] * (ABNORMAL) BLOOD GAS 2 ARTERIAL (08/16/2022 8:09 PM EDT) pH, Arterial 7.48(H) 7.35 - 7.45 [facility] PCO2, Arterial 34(L) 35 - 45 mmHg [facility] PO2, Arterial 78(L) 85 - 104 mmHg [facility] Bicarbonate, Arterial 25.0 20.0 - 26.0 mmol/L [facility] Base Excess, Arterial 1.5 -3.0 - 3.0 mmol/L [facility] Hgb Blood Gas 9.4(L) 11.7 - 15.5 g/dL [facility] Oxyhemoglobin, Arterial 94.2 94.0 - 97.0 % [facility] Carboxyhemoglob in, Arterial 0.1 % [facility] Comment: Nonsmokers: 0.5-1.5% COHB Smokers: Variable, but usually less than 10% Toxic: 20-30% COHB Lethal: Greater than 60% COHB Methemoglobin, Arterial 0.9 <=1.5 % [facility] Na Whole Blood 133(L) 135 - 145 mmol/L [facility] K Whole Blood 4.6 3.5 - 5.0 mmol/L [facility] Comment: Please note: Patients with WBC >100,000 may have falsely elevated Potassium levels. Contact the Clinical Chemistry Laboratory if there are any questions. ICa Whole Blood 1.14(L) 1.15 - 1.33 mmol/L [facility] Comment: Note: ??Total bilirubin higher than 20 mg/dL may lead to falsely low ionized calcium. CL Whole Blood 102 98 - 107 mmol/L [facility] Gluc Whole Bld 180 65 - 199 mg/dL [facility] Comment:Diabetes: >=200 mg/d L plus symptoms. Lactate WB 1.5 0.5 - 2.2 mmol/L [facility] FIO2 Art 30 % [facility] PF Ratio Art 260 [facility] Blood 08/16/2022 8:09 PM EDT 08/16/2022 8:09 PM EDT Carlos Terry MD POINT OF CARE TEST O RDERABLES [facility] [place] [address] * (ABNORMAL) Basic Metabolic Panel (non-fasting) (08/16/2022 6:00 PM EDT) Glucose 181 65 - 199 mg/dL [facility] Comment:Diabetes: >=200 mg/d L plus symptoms Blood Urea Nitrogen 37(H) 8 - 18 mg/dL [facility] Creatinine 1.15 0.70 - 1.20 mg/dL [facility] Sodium 136 135 - 145 mmol/L [facility] Potassium 4.4 3.5 - 5.0 mmol/L [facility] Comment: Please note: ??Patients with WBC >100,000 may have falsely elevated Potassium levels. ??For accurate Potassium quantification in these patients send serum separator tube (gold top) for subsequent determinations. ??Contact the Clinical Chemistry Laboratory if there are any questions. Chloride 100 98 - 107 mmol/L [facility] Carbon Dioxide 24 22 - 31 mmol/L [facility] Anion Gap 12 5 - 15 mmol/L [facility] Calcium 8.4(L) 8.5 - 10.5 mg/dL [facility] Est Glomerular Filtration Rate 54(L) >=60 mL/min/1. 73 m?? [facility] Comment: This patient's estimated GFR was [...] In Lab Carlos Terry MD CHEMISTRY ORDERABLES [facility] [address] [place] [address] * (ABNORMAL) BLOOD GAS 2 ARTERIAL (08/16/2022 5:59 PM EDT) pH, Arterial 7.53(H) 7.35 - 7.45 [facility] PCO2, Arterial 26(L) 35 - 45 mmHg [facility] PO2, Arterial 48(Critica l) 85 - 104 mmHg [facility] Comment:Noted by musical instrument supervisor. Bicarbonate, Arterial 21.2 20.0 - 26.0 mmol/L [facility] Base Excess, Arterial -1.5 -3.0 - 3.0 mmol/L [facility] Hgb Blood Gas 9.5(L) 11.7 - 15.5 g/dL [facility] Oxyhemoglobin, Arterial 86.1(L) 94.0 - 97.0 % [facility] Carboxyhemoglob in, Arterial 0.6 % [facility] Comment: Nonsmokers: 0.5-1.5% COHB Smokers: Variable, but usually less than 10% Toxic: 20-30% COHB Lethal: Greater than 60% COHB Methemoglobin, Arterial 0.8 <=1.5 % [facility] Na Whole Blood 132(L) 135 - 145 mmol/L [facility] K Whole Blood 4.1 3.5 - 5.0 mmol/L [facility] Comment: Please note: Patients with WBC >100,000 may have falsely elevated Potassium levels. Contact the Clinical Chemistry Laboratory if there are any questions. ICa Whole Blood 1.13(L) 1.15 - 1.33 mmol/L [facility] Comment: Note: ??Total bilirubin higher than 20 mg/dL may lead to falsely low ionized calcium. CL Whole Blood 102 98 - 107 mmol/L [facility] Gluc Whole Bld 158 65 - 199 mg/dL [facility] Comment:Diabetes: >=200 mg/d L plus symptoms. Lactate WB 1.3 0.5 - 2.2 mmol/L [facility] FIO2 Art 21 % [facility] PF Ratio Art 229 [facility] Blood 08/16/2022 5:59 PM EDT 08/16/2022 5:59 PM EDT Carlos Terry MD POINT OF CARE TEST O RDERABLES [facility] [place] [address] * (ABNORMAL) BLOOD GAS 2 ARTERIAL (08/16/2022 4:02 PM EDT) pH, Arterial 7.53(H) 7.35 - 7.45 [facility] PCO2, Arterial 30(L) 35 - 45 mmHg [facility] PO2, Arterial 55(L) 85 - 104 mmHg [facility] Bicarbonate, Arterial 24.9 20.0 - 26.0 mmol/L [facility] Base Excess, Arterial 2.1 -3.0 - 3.0 mmol/L [facility] Hgb Blood Gas 9.3(L) 11.7 - 15.5 g/dL [facility] Oxyhemoglobin, Arterial 88.5(L) 94.0 - 97.0 % [facility] Carboxyhemoglob in, Arterial 1.0 % [facility] Comment: Nonsmokers: 0.5-1.5% COHB Smokers: Variable, but usually less than 10% Toxic: 20-30% COHB Lethal: Greater than 60% COHB Methemoglobin, Arterial 0.9 <=1.5 % [facility] Na Whole Blood 133(L) 135 - 145 mmol/L [facility] K Whole Blood 4.7 3.5 - 5.0 mmol/L [facility] Comment: Please note: Patients with WBC >100,000 may have falsely elevated Potassium levels. Contact the Clinical Chemistry Laboratory if there are any questions. ICa Whole Blood 1.15 1.15 - 1.33 mmol/L [facility] Comment: Note: ??Total bilirubin higher than 20 mg/dL may lead to falsely low ionized calcium. CL Whole Blood 102 98 - 107 mmol/L [facility] Gluc Whole Bld 130 65 - 199 mg/dL [facility] Comment:Diabetes: >=200 mg/d L plus symptoms. Lactate WB 1.5 0.5 - 2.2 mmol/L [facility] FIO2 Art 21 % [facility] PF Ratio Art 262 [facility] Blood 08/16/2022 4:02 PM EDT 08/16/2022 4:02 PM EDT Carlos Terry MD POINT OF CARE TEST O RDERABLES Performing Organization Address City/[facility]/ZIP Co de Phone Number [facility] [place] [address] * (ABNORMAL) Coox2 (08/16/2022 3:58 PM EDT) pO2, Coox 24 mmHg [facility] Hgb Blood Gas 9.4(L) 11.7 - 15.5 g/dL [facility] Oxyhemoglobin, Coox 50.5 % [facility] Carboxyhemoglo bin, Coox 0.5 % [facility] Comment: Nonsmokers: 0.5-1.5% COHB Smokers: Variable, but usually less than 10% Toxic: 20-30% COHB Lethal: Greater than 60% COHB Methemoglobin, Coox 1.1 <=1.5 % [facility] Source Coox Mixed Venous [facility] Blood 08/16/2022 3:58 PM EDT 08/16/2022 3:58 PM EDT Carlos Terry MD POINT OF CARE TEST O RDERABLES [facility] [place] [address] * POCT Glucose (08/16/2022 2:15 PM EDT) Glucose, POC 88 65 - 199 mg/dL [facility] Comment: Supplemental ranges: <140 mg/dL before meals <180 mg/dL all other times of the day Blood 08/16/2022 2:15 PM EDT 08/16/2022 2:15 PM EDT Carlos Terry MD POINT OF CARE TEST O RDERABLES Performing Organization Address City/[facility] Co de Phone Number [facility] [address] * POCT Glucose (08/16/2022 1:11 PM EDT) Glucose, POC 77 65 - 199 mg/dL [facility] Comment: Supplemental ranges: <140 mg/dL before meals <180 mg/dL all other times of the day Blood 08/16/2022 1:11 PM EDT 08/16/2022 1:11 PM EDT Carlos Terry MD POINT OF CARE TEST O GABRIELLA Performing Organization Address [facility] Co de Phone Number [facility] [place] [address] * (ABNORMAL) BLOOD GAS 2 ARTERIAL (08/16/2022 12:16 PM EDT) pH, Arterial 7.52(H) 7.35 - 7.45 [facility] PCO2, Arterial 30(L) 35 - 45 mmHg [facility] PO2, Arterial 59(L) 85 - 104 mmHg [facility] [facility] Bicarbonate, Arterial 24.2 20.0 - 26.0 mmol/L [facility] Base Excess, Arterial 1.5 -3.0 - 3.0 mmol/L [facility] Hgb Blood Gas 9.6(L) 11.7 - 15.5 g/dL [facility] Oxyhemoglobin, Arterial 91.1(L) 94.0 - 97.0 % [facility] Carboxyhemoglob in, Arterial 1.0 % [facility] Comment: Nonsmokers: 0.5-1.5% COHB Smokers: Variable, but usually less than 10% Toxic: 20-30% COHB Lethal: Greater than 60% COHB Methemoglobin, Arterial 0.7 <=1.5 % [facility] Na Whole Blood 132(L) 135 - 145 mmol/L [facility] K Whole Blood 3.4(L) 3.5 - 5.0 mmol/L [facility] Comment: Please note: Patients with WBC >100,000 may have falsely elevated Potassium levels. Contact the Clinical Chemistry Laboratory if there are any questions. ICa Whole Blood 1.16 1.15 - 1.33 mmol/L [facility] Comment: Note: ??Total bilirubin higher than 20 mg/dL may lead to falsely low ionized calcium. CL Whole Blood 101 98 - 107 mmol/L [facility] Gluc Whole Bld 86 65 - 199 mg/dL [facility] Comment:Diabetes: >=200 mg/d L plus symptoms. Lactate WB 1.8 0.5 - 2.2 mmol/L [facility] FIO2 Art 21 % [facility] PF Ratio Art 281 [facility] Blood 08/16/2022 12:1 6 PM EDT 08/16/2022 12:16 PM EDT Carlos Terry MD POINT OF CARE TEST O GABRIELLA [facility] [place] [address] * (ABNORMAL) Coox2 (08/16/2022 12:11 PM EDT) pO2, Coox 27 mmHg [facility] Hgb Blood Gas 9.2(L) 11.7 - 15.5 g/dL [facility] Oxyhemoglobin, Coox 56.0 % [facility] Carboxyhemoglo bin, Coox 0.9 % [facility] Comment: Nonsmokers: 0.5-1.5% COHB Smokers: Variable, but usually less than 10% Toxic: 20-30% COHB Lethal: Greater than 60% COHB Methemoglobin, Coox 0.7 <=1.5 % [facility] Source Coox Mixed Venous [facility] Blood 08/16/2022 12:1 1 PM EDT 08/16/2022 12:11 PM EDT Carlos Terry MD POINT OF CARE TEST O GABRIELLA Performing Organization Address [facility] Co de Phone Number [facility] [place] [address] * (ABNORMAL) Coox2 (08/16/2022 11:17 AM EDT) pO2, Coox 24 mmHg [facility] Hgb Blood Gas 9.5(L) 11.7 - 15.5 g/dL [facility] Oxyhemoglobin, Coox 49.3 % [facility] Carboxyhemoglo bin, Coox 0.3 % [facility] Comment: Nonsmokers: 0.5-1.5% COHB Smokers: Variable, but usually less than 10% Toxic: 20-30% COHB Lethal: Greater than 60% COHB Methemoglobin, Coox 0.9 <=1.5 % [facility] Source Coox Mixed Venous [facility] Blood 08/16/2022 11:1 7 AM EDT 08/16/2022 11:17 AM EDT Carlos Terry MD POINT OF CARE TEST O GABRIELLA Performing Organization Address [facility] Co de Phone Number [facility] [address] * XR Chest One View (08/16/2022 10:31 [...] who have questions please contact the health coronary care unit nurse that requested your imaging first. ? Narrative 08/16/2022 10:56 AM EDT EXAMINATION: XR [...] patients who have questions please contactthe health coronary care unit nurse that requested your imaging first. Carlos Terry MD IMG DX ORDERABLES * (ABNORMAL) Coox2 (08/16/2022 9:48 AM EDT) pO2, Coox 27 mmHg [facility] Hgb Blood Gas 10.0(L) 11.7 - 15.5 g/dL [facility] Oxyhemoglobin, Coox 56.5 % [facility] Carboxyhemoglo bin, Coox 0.5 % [facility] Comment: Nonsmokers: 0.5-1.5% COHB Smokers: Variable, but usually less than 10% Toxic: 20-30% COHB Lethal: Greater than 60% COHB Methemoglobin, Coox 0.9 <=1.5 % [facility] Source Coox Mixed Venous [facility] Blood 08/16/2022 9:48 AM EDT 08/16/2022 9:48 AM EDT Carlso Terry MD POINT OF CARE TEST O RDERABLES Performing Organization Address City/[facility] Co de Phone Number [facility] [address] * POCT Glucose (08/16/2022 9:47 AM EDT) Glucose, POC 159 65 - 199 mg/dL [facility] Comment: Supplemental ranges: <140 mg/dL before meals <180 mg/dL all other times of the day Blood 08/16/2022 9:47 AM EDT 08/16/2022 9:47 AM EDT Carlos Terry MD POINT OF CARE TEST O RDERABLES Performing Organization Address City/[facility] Co de Phone Number [facility] [address] * (ABNORMAL) Coox2 (08/16/2022 8:20 AM EDT) pO2, Coox 26 mmHg [facility] Hgb Blood Gas 9.9(L) 11.7 - 15.5 g/dL [facility] Oxyhemoglobin, Coox 48.7 % [facility] Carboxyhemoglo bin, Coox 0.6 % [facility] Comment: Nonsmokers: 0.5-1.5% COHB Smokers: Variable, but usually less than 10% Toxic: 20-30% COHB Lethal: Greater than 60% COHB Methemoglobin, Coox 1.0 <=1.5 % [facility] Source Coox Mixed Venous [facility] Blood 08/16/2022 8:20 AM EDT 08/16/2022 8:20 AM EDT Carlos Terry MD POINT OF CARE TEST O RDERABLES [facility] [address] [place] [address] * (ABNORMAL) BLOOD GAS 2 ARTERIAL (08/16/2022 8:17 AM EDT) pH, Arterial 7.46(H) 7.35 - 7.45 [facility] PCO2, Arterial 36 35 - 45 mmHg [facility] PO2, Arterial 68(L) 85 - 104 mmHg [facility] Bicarbonate, Arterial 24.8 20.0 - 26.0 mmol/L [facility] Base Excess, Arterial 1.0 -3.0 - 3.0 mmol/L [facility] Hgb Blood Gas 10.0(L) 11.7 - 15.5 g/dL [facility] Oxyhemoglobin, Arterial 92.7(L) 94.0 - 97.0 % [facility] Carboxyhemoglob in, Arterial 0.3 % [facility] Comment: Nonsmokers: 0.5-1.5% COHB Smokers: Variable, but usually less than 10% Toxic: 20-30% COHB Lethal: Greater than 60% COHB Methemoglobin, Arterial 0.8 <=1.5 % [facility] Na Whole Blood 134(L) 135 - 145 mmol/L [facility] K Whole Blood 3.6 3.5 - 5.0 mmol/L [facility] Comment: Please note: Patients with WBC >100,000 may have falsely elevated Potassium levels. Contact the Clinical Chemistry Laboratory if there are any questions. ICa Whole Blood 1.14(L) 1.15 - 1.33 mmol/L [facility] Comment: Note: ??Total bilirubin higher than 20 mg/dL may lead to falsely low ionized calcium. CL Whole Blood 101 98 - 107 mmol/L [facility] Gluc Whole Bld 168 65 - 199 mg/dL [facility] Comment:Diabetes: >=200 mg/d L plus symptoms. Lactate WB 2.2 0.5 - 2.2 mmol/L [facility] FIO2 Art 21 % [facility] PF Ratio Art 324 [facility] Blood 08/16/2022 8:17 AM EDT 08/16/2022 8:17 AM EDT Carlos Terry MD POINT OF CARE TEST O RDERABLES Performing Organization Address [facility] Co de Phone Number [facility] [address] * Potassium (08/16/2022 8:10 AM EDT) Potassium 3.7 3.5 - 5.0 mmol/L [facility] Comment: Please note: ??Patients with WBC [...] Pascal MD CHEMISTRY ORDERABLES Performing Organization Address [facility] Co de Phone Number [facility] [address] * (ABNORMAL) Troponin (08/16/2022 8:10 AM EDT) Troponin-T, High Sensitivity 251(H) <=14 ng/L [facility] Comment: This patient's troponin T concentration [...] troponin value can be found in the [facility] Laboratory Test Catalog Troponin - [facility] Laboratory Test Catalog Reference: Fourth [place] Definition of Myocardial Infarction. Journal of the [place] [employer] 2018;72:8419-5738 Blood 08/16/2022 8:10 AM EDT 08/16/2022 8:28 AM EDT Narrative Resulting Agency Comment Spec In Lab Carlos Terry MD CHEMISTRY ORDERABLES Performing Organization Address [facility]/ZIP Co de Phone Number [facility] [place] [address] * POCT Glucose (08/16/2022 5:54 AM EDT) Glucose, POC 194 65 - 199 mg/dL [facility] Comment: Supplemental ranges: <140 mg/dL before meals <180 mg/dL all other times of the day Blood 08/16/2022 5:54 AM EDT 08/16/2022 5:54 AM EDT Carlos Terry MD POINT OF CARE TEST O RDERABLES Performing Organization Address City/[facility]/ZIP Co de Phone Number [facility] [address] * (ABNORMAL) Coox2 (08/16/2022 4:44 AM EDT) pO2, Coox 27 mmHg [facility] Hgb Blood Gas 9.8(L) 11.7 - 15.5 g/dL [facility] Oxyhemoglobin, Coox 54.2 % [facility] Carboxyhemoglo bin, Coox 0.8 % [facility] Comment: Nonsmokers: 0.5-1.5% COHB Smokers: Variable, but usually less than 10% Toxic: 20-30% COHB Lethal: Greater than 60% COHB Methemoglobin, Coox 1.0 <=1.5 % [facility] Source Coox Mixed Venous [facility] Blood 08/16/2022 4:44 AM EDT 08/16/2022 4:44 AM EDT Carlos Terry MD POINT OF CARE TEST O RDERABLES [facility] [place] [address] * (ABNORMAL) BLOOD GAS 2 ARTERIAL (08/16/2022 4:41 AM EDT) pH, Arterial 7.47(H) 7.35 - 7.45 [facility] PCO2, Arterial 34(L) 35 - 45 mmHg [facility] PO2, Arterial 71(L) 85 - 104 mmHg [facility] Bicarbonate, Arterial 24.5 20.0 - 26.0 mmol/L [facility] Base Excess, Arterial 0.9 -3.0 - 3.0 mmol/L [facility] Hgb Blood Gas 10.8(L) 11.7 - 15.5 g/dL [facility] Oxyhemoglobin, Arterial 93.2(L) 94.0 - 97.0 % [facility] Carboxyhemoglob in, Arterial 0.7 % [facility] Comment: Nonsmokers: 0.5-1.5% COHB Smokers: Variable, but usually less than 10% Toxic: 20-30% COHB Lethal: Greater than 60% COHB Methemoglobin, Arterial 0.8 <=1.5 % [facility] Na Whole Blood 133(L) 135 - 145 mmol/L [facility] K Whole Blood 3.9 3.5 - 5.0 mmol/L [facility] Comment: Please note: Patients with WBC >100,000 may have falsely elevated Potassium levels. Contact the Clinical Chemistry Laboratory if there are any questions. ICa Whole Blood 1.10(L) 1.15 - 1.33 mmol/L [facility] Comment: Note: ??Total bilirubin higher than 20 mg/dL may lead to falsely low ionized calcium. CL Whole Blood 102 98 - 107 mmol/L [facility] Gluc Whole Bld 216(H) 65 - 199 mg/dL [facility] Comment:Diabetes: >=200 mg/d L plus symptoms. Lactate WB 1.7 0.5 - 2.2 mmol/L [facility] FIO2 Art 25 % [facility] PF Ratio Art 284 [facility] Blood 08/16/2022 4:41 AM EDT 08/16/2022 4:41 AM EDT Carlos Terry MD POINT OF CARE TEST O RDERABLES Performing Organization Address [facility] Co de Phone Number [facility] [address] * Scan, Peripheral Blood (08/16/2022 3:36 AM EDT) Plat estimate Normal [facility] RBC Morphology Abnormal [facility] Ovalocytes 1-5 /HPF [facility] [place] Cells 6-10 /HPF [facility] Toxic Granulation Present [facility] Dohle Bodies Present [facility] Blood 08/16/2022 3:36 AM EDT 08/16/2022 3:43 AM EDT Narrative Resulting Agency Comment Spec In Lab Tyler Cobb MD HEMATOLOGY ORDERABLE S Performing Organization Address [facility] Co de Phone Number [facility] [address] * (ABNORMAL) Differential, Automated (08/16/2022 3:36 AM EDT) Neutrophil % 82.1 % [facility] Neutrophil Absolute 24.49(H) 1.70 - 6.10 x10(3)/mc L [facility] Lymph % 6.3 % [facility] Lymphocytes Abs 1.9 0.9 - 3.2 x10(3)/mc L [facility] Monocyte % 7.4 % [facility] Monocyte Abs 2.2(H) 0.3 - 0.9 x10(3)/mc L [facility] Eos % 0.1 % [facility] Eosinophils Abs 0.0 0.0 - 0.4 x10(3)/[facility] Basophil % 0.5 % [facility] Baso Absolute 0.2(H) 0.0 - 0.1 x10(3)/ L [facility] Immature Gran % 3.60 % [facility] Comment: Immature granulocytes(IG's)percentage and absolute count will include metamyelocytes, myelocytes, and promyelocytes. Blood smears from CBCs yielding IG's will be scanned manually for concordance. If this scan disagrees with the automated IG or if promyelocytes are noted, a manual differential will be performed. Immature Gran Absolute 1.06(H) 0.00 - 0.04 x10(3)/[facility] Blood 08/16/2022 3:36 AM EDT 08/16/2022 3:43 AM EDT Narrative Resulting Agency Comment Spec In Lab Tyler Cobb MD HEMATOLOGY ORDERABLE S [facility] [address] * (ABNORMAL) Hemogram (08/16/2022 3:36 AM EDT) White Blood Cell 29.8(H) 4.0 - 9.5 x10(3)/ L [facility] Red Blood Cell 4.63 4.00 - 5.21 x10(6)/ L [facility] Hemoglobin 9.3(L) 11.7 - 15.5 g/dL [facility] Hematocrit 29.8(L) 35.7 - 45.8 % [facility] Mean Cell Volume 64.4(L) 82.6 - 94.4 fL [facility] Mean Cell Hemoglobin 20.1(L) 27.1 - 32.0 pg [facility] Mean Cell Hemoglobin Concentration 31.2(L) 31.7 - 35.0 g/dL [facility] Platelet 295 145 - 357 x10(3)/ L [facility] RDW Standard Deviation 64.3(H) 37.0 - 46.0 fL [facility] RDW coefficient of variation 29.2(H) 11.5 - 14.1 % [facility] Mean Platelet Volume Not Measured 7.6 - 12.9 fL [facility] NRBC% auto 0.5 % [facility] NRBC Absolute 0.150(H) 0.000 - 0.000 x10(3)/mc L [facility] Blood 08/16/2022 3:36 AM EDT 08/16/2022 3:43 AM EDT Narrative Resulting Agency Comment Spec In Lab Tyler Cobb MD HEMATOLOGY ORDERABLE S [facility] [address] * (ABNORMAL) Troponin (08/16/2022 3:36 AM EDT) Troponin-T, High Sensitivity 316(H) <=14 ng/L [facility] Comment: This patient's troponin T concentration [...] troponin value can be found in the [facility] Laboratory Test Catalog Troponin - [facility] Test Catalog Reference: Fourth [place] Definition of Myocardial Infarction. Journal of the [place] [employer] 2018;72:3897-0949 Blood 08/16/2022 3:36 AM EDT 08/16/2022 3:43 AM EDT Narrative Resulting Agency Comment Spec In Lab Carlos Terry MD CHEMISTRY ORDERABLES Performing Organization Address [facility] Co de Phone Number [facility] [place] [address] * Heparin (unfractionated) Level (08/16/2022 3:36 AM EDT) UF Heparin 0.30 IU/mL [facility] Comment: Heparin (anti-Xa) levels [...] MD HEMATOLOGY ORDERABLE S Performing Organization Address [facility] Co de Phone Number [facility] [address] * (ABNORMAL) Basic Metabolic Panel (non-fasting) (08/16/2022 3:36 AM EDT) Glucose 213(H) 65 - 199 mg/dL [facility] Comment:Diabetes: >=200 mg/d L plus symptoms Blood Urea Nitrogen 37(H) 8 - 18 mg/dL [facility] Creatinine 1.42(H) 0.70 - 1.20 mg/dL [facility] Sodium 138 135 - 145 mmol/L [facility] Potassium 4.1 3.5 - 5.0 mmol/L [facility] Comment: Please note: ??Patients with WBC >100,000 may have falsely elevated Potassium levels. ??For accurate Potassium quantification in these patients send serum separator tube (gold top) for subsequent determinations. ??Contact the Clinical Chemistry Laboratory if there are any questions. Chloride 103 98 - 107 mmol/L [facility] Carbon Dioxide 24 22 - 31 mmol/L [facility] Anion Gap 11 5 - 15 mmol/L [facility] Calcium 8.1(L) 8.5 - 10.5 mg/dL [facility] Est Glomerular Filtration Rate 42(L) >=60 mL/min/1. 73 m?? [facility] Comment: This patient's estimated GFR was [...] In Lab Carlos Terry MD CHEMISTRY ORDERABLES [facility] [place] [address] * Phosphorus (08/16/2022 3:36 AM EDT) Phosphorus 2.7 2.5 - 4.5 mg/dL [facility] Blood 08/16/2022 3:36 AM EDT 08/16/2022 3:43 AM EDT Narrative Resulting Agency Comment Spec In Lab Richard Pascal MD CHEMISTRY ORDERABLES [facility] [place] [address] * Magnesium (08/16/2022 3:36 AM EDT) Magnesium 0.99 0.69 - 1.07 mmol/L [facility] Blood 08/16/2022 3:36 AM EDT 08/16/2022 3:43 AM EDT Narrative Resulting Agency Comment Spec In Lab Richard Pascal MD CHEMISTRY ORDERABLES Performing Organization Address [facility] Co de Phone Number [facility] [address] * (ABNORMAL) POCT Glucose (08/16/2022 3:34 AM EDT) Glucose, POC 207(H) 65 - 199 mg/dL [facility] Comment: Supplemental ranges: <140 mg/dL before meals <180 mg/dL all other times of the day Blood 08/16/2022 3:34 AM EDT 08/16/2022 3:34 AM EDT Carlos Terry MD POINT OF CARE TEST O RDERABLES Performing Organization Address [facility] Co de Phone Number [facility] [address] * EKG 12 Lead (08/16/2022 3:24 AM EDT) Ventricular rate 79 BPM MUSE SYSTEM Atrial Rate 79 BPM MUSE SYSTEM P-R Interval 130 ms MUSE SYSTEM QRS Duration 68 ms MUSE SYSTEM Q-T Interval 396 ms MUSE SYSTEM QTC Calculated (Bezet) 454 ms MUSE SYSTEM Calculated P [place] -26 degrees MUSE SYSTEM Calculated R [place] 70 degrees MUSE SYSTEM Calculated T [place] -123 degrees MUSE SYSTEM INTERPRETATION Normal sinus [...] 2:13 AM EDT) pO2, Coox 27 mmHg [facility] Hgb Blood Gas 10.6(L) 11.7 - 15.5 g/dL [facility] Oxyhemoglobin, Coox 51.3 % [facility] Carboxyhemoglo bin, Coox 0.3 % [facility] Comment: Nonsmokers: 0.5-1.5% COHB Smokers: Variable, but usually less than 10% Toxic: 20-30% COHB Lethal: Greater than 60% COHB Methemoglobin, Coox 1.0 <=1.5 % [facility] Source Coox Mixed Venous [facility] Blood 08/16/2022 2:13 AM EDT 08/16/2022 2:13 AM EDT Carlos Terry MD POINT OF CARE TEST O RDERABLES Performing Organization Address [facility]/ZIP Co de Phone Number [facility] [address] * POCT Glucose (08/16/2022 1:38 AM EDT) Glucose, POC 165 65 - 199 mg/dL [facility] Comment: Supplemental ranges: <140 mg/dL before meals <180 mg/dL all other times of the day Blood 08/16/2022 1:38 AM EDT 08/16/2022 1:38 AM EDT Carlos Terry MD POINT OF CARE TEST O RDERABLES [facility] [place] [address] * POCT Glucose (08/16/2022 1:01 AM EDT) Glucose, POC 136 65 - 199 mg/dL [facility] Comment: Supplemental ranges: <140 mg/dL before meals <180 mg/dL all other times of the day Blood 08/16/2022 1:01 AM EDT 08/16/2022 1:01 AM EDT Carlos Terry MD POINT OF CARE TEST O RDAV Performing Organization Address [facility] Co de Phone Number [facility] [address] * (ABNORMAL) Coox2 (08/16/2022 12:04 AM EDT) pO2, Coox 24 mmHg [facility] Hgb Blood Gas 10.5(L) 11.7 - 15.5 g/dL [facility] Oxyhemoglobin, Coox 46.3 % [facility] Carboxyhemoglo bin, Coox 0.3 % [facility] Comment: Nonsmokers: 0.5-1.5% COHB Smokers: Variable, but usually less than 10% Toxic: 20-30% COHB Lethal: Greater than 60% COHB Methemoglobin, Coox 1.2 <=1.5 % [facility] Source Coox Mixed Venous [facility] Blood 08/16/2022 12:0 4 AM EDT 08/16/2022 12:04 AM EDT Carlos Terry MD POINT OF CARE TEST O RDAV Performing Organization Address [facility] Co de Phone Number [facility] [address] * (ABNORMAL) BLOOD GAS 2 ARTERIAL (08/15/2022 11:59 PM EDT) pH, Arterial 7.46(H) 7.35 - 7.45 [facility] PCO2, Arterial 36 35 - 45 mmHg [facility] PO2, Arterial 75(L) 85 - 104 mmHg [facility] Bicarbonate, Arterial 24.7 20.0 - 26.0 mmol/L [facility] Base Excess, Arterial 0.8 -3.0 - 3.0 mmol/L [facility] Hgb Blood Gas 10.5(L) 11.7 - 15.5 g/dL [facility] Oxyhemoglobin, Arterial 94.3 94.0 - 97.0 % [facility] Carboxyhemoglob in, Arterial 0.2 % [facility] Comment: Nonsmokers: 0.5-1.5% COHB Smokers: Variable, but usually less than 10% Toxic: 20-30% COHB Lethal: Greater than 60% COHB Methemoglobin, Arterial 0.9 <=1.5 % [facility] Na Whole Blood 135 135 - 145 mmol/L [facility] K Whole Blood 4.5 3.5 - 5.0 mmol/L [facility] Comment: Please note: Patients with WBC >100,000 may have falsely elevated Potassium levels. Contact the Clinical Chemistry Laboratory if there are any questions. ICa Whole Blood 1.15 1.15 - 1.33 mmol/L [facility] Comment: Note: ??Total bilirubin higher than 20 mg/dL may lead to falsely low ionized calcium. CL Whole Blood 101 98 - 107 mmol/L [facility] Gluc Whole Bld 165 65 - 199 mg/dL [facility] Comment:Diabetes: >=200 mg/d L plus symptoms. Lactate WB 2.2 0.5 - 2.2 mmol/L [facility] FIO2 Art 25 % [facility] PF Ratio Art 300 [facility] Blood 08/15/2022 11:5 9 PM EDT 08/15/2022 11:59 PM EDT Carlos Terry MD POINT OF CARE TEST O RDERABLES Performing Organization Address City/State/[facility] Co de Phone Number [facility] [place] [address] * (ABNORMAL) POCT Glucose (08/15/2022 9:46 PM EDT) Glucose, POC 211(H) 65 - 199 mg/dL [facility] Comment: Supplemental ranges: <140 mg/dL before meals <180 mg/dL all other times of the day Blood 08/15/2022 9:46 PM EDT 08/15/2022 9:46 PM EDT Carlos Terry MD POINT OF CARE TEST O RDERABLES Performing Organization Address [facility] Co de Phone Number [facility] [address] * Potassium (08/15/2022 9:40 PM EDT) Potassium 3.5 3.5 - 5.0 mmol/L [facility] Comment: result rechecked-CORTNEY Please note: ??Patients [...] Pascal MD CHEMISTRY ORDERABLES Performing Organization Address [facility] Co de Phone Number [facility] [place] [address] * Vancomycin Level, Random (08/15/2022 9:40 PM EDT) Vancomycin, Random 19.5 mg/L [facility] Comment: This level is for determination of the patient's vancomycin fhgf-xmprw-tol-curve (AUC) value. Contact the inpatient pharmacy for interpretation. Blood 08/15/2022 9:40 PM EDT 08/15/2022 9:56 PM EDT Carlos Terry MD CHEMISTRY ORDERABLES Performing Organization Address [facility] Co de Phone Number [facility] [address] * (ABNORMAL) Coox2 (08/15/2022 8:10 PM EDT) pO2, Coox 24 mmHg [facility] Hgb Blood Gas 10.6(L) 11.7 - 15.5 g/dL [facility] Oxyhemoglobin, Coox 49.8 % [facility] Carboxyhemoglo bin, Coox 0.7 % [facility] Comment: Nonsmokers: 0.5-1.5% COHB Smokers: Variable, but usually less than 10% Toxic: 20-30% COHB Lethal: Greater than 60% COHB Methemoglobin, Coox 0.8 <=1.5 % [facility] Source Coox Mixed Venous [facility] Blood 08/15/2022 8:10 PM EDT 08/15/2022 8:10 PM EDT Carlos Terry MD POINT OF CARE TEST O RDERABLES [facility] [address] * (ABNORMAL) BLOOD GAS 2 ARTERIAL (08/15/2022 8:08 PM EDT) pH, Arterial 7.44 7.35 - 7.45 [facility] PCO2, Arterial 30(L) 35 - 45 mmHg [facility] PO2, Arterial 78(L) 85 - 104 mmHg [facility] Bicarbonate, Arterial 19.7(L) 20.0 - 26.0 mmol/L [facility] Base Excess, Arterial -4.4(L) -3.0 - 3.0 mmol/L [facility] Hgb Blood Gas 9.8(L) 11.7 - 15.5 g/dL [facility] Oxyhemoglobin, Arterial 94.4 94.0 - 97.0 % [facility] Carboxyhemoglob in, Arterial 0.6 % [facility] Comment: Nonsmokers: 0.5-1.5% COHB Smokers: Variable, but usually less than 10% Toxic: 20-30% COHB Lethal: Greater than 60% COHB Methemoglobin, Arterial 0.8 <=1.5 % [facility] Na Whole Blood 135 135 - 145 mmol/L [facility] K Whole Blood 3.1(L) 3.5 - 5.0 mmol/L [facility] Comment: Please note: Patients with WBC >100,000 may have falsely elevated Potassium levels. Contact the Clinical Chemistry Laboratory if there are any questions. ICa Whole Blood 1.08(L) 1.15 - 1.33 mmol/L [facility] Comment: Note: ??Total bilirubin higher than 20 mg/dL may lead to falsely low ionized calcium. CL Whole Blood 107 98 - 107 mmol/L [facility] Gluc Whole Bld 178 65 - 199 mg/dL [facility] Comment:Diabetes: >=200 mg/d L plus symptoms. Lactate WB 1.6 0.5 - 2.2 mmol/L [facility] FIO2 Art 25 % [facility] PF Ratio Art 312 [facility] Blood 08/15/2022 8:08 PM EDT 08/15/2022 8:08 PM EDT Carlos Terry MD POINT OF CARE TEST O RDERABLES Performing Organization Address [facility] Co de Phone Number [facility] [place] [address] * POCT Glucose (08/15/2022 6:03 PM EDT) Glucose, POC 186 65 - 199 mg/dL [facility] Comment: Supplemental ranges: <140 mg/dL before meals <180 mg/dL all other times of the day Blood 08/15/2022 6:03 PM EDT 08/15/2022 6:03 PM EDT Carlos Terry MD POINT OF CARE TEST O GABRIELLA Performing Organization Address [facility] Co de Phone Number [facility] [address] * (ABNORMAL) POCT Glucose (08/15/2022 4:51 PM EDT) Glucose, POC 210(H) 65 - 199 mg/dL [facility] Comment: Supplemental ranges: <140 mg/dL before meals <180 mg/dL all other times of the day Blood 08/15/2022 4:51 PM EDT 08/15/2022 4:51 PM EDT Carlos Terry MD POINT OF CARE TEST O RDERAREYMUNDO Performing Organization Address City/[facility] Co de Phone Number [facility] [address] * Heparin (unfractionated) Level (08/15/2022 4:50 PM EDT) UF Heparin 0.37 IU/mL [facility] Comment: Heparin (anti-Xa) levels [...] Lab Carlos Terry MD HEMATOLOGY ORDERABLE S [facility] [address] * (ABNORMAL) Coox2 (08/15/2022 4:24 PM EDT) pO2, Coox 29 mmHg [facility] Hgb Blood Gas 11.1(L) 11.7 - 15.5 g/dL [facility] Oxyhemoglobin, Coox 57.4 % [facility] Carboxyhemoglo bin, Coox 0.5 % [facility] Comment: Nonsmokers: 0.5-1.5% COHB Smokers: Variable, but usually less than 10% Toxic: 20-30% COHB Lethal: Greater than 60% COHB Methemoglobin, Coox 0.8 <=1.5 % [facility] Source Coox Mixed Venous [facility] Blood 08/15/2022 4:24 PM EDT 08/15/2022 4:24 PM EDT Carlos Terry MD POINT OF CARE TEST O RDERABLES [facility] [address] * Vancomycin Level, Random (08/15/2022 4:20 PM EDT) Vancomycin, Random 23.8 mg/L [facility] Comment: This level is for determination of the patient's vancomycin jpfi-phsgp-vwn-curve (AUC) value. Contact the inpatient pharmacy for interpretation. Blood Venous Draw / Unknown 08/15/2022 4:20 PM EDT 08/15/2022 4:26 PM EDT Tyler Cobb MD CHEMISTRY ORDERABLES Performing Organization Address City/[facility]/ZIP Co de Phone Number [facility] [address] * (ABNORMAL) Basic Metabolic Panel (non-fasting) (08/15/2022 4:20 PM EDT) Glucose 227(H) 65 - 199 mg/dL [facility] Comment:Diabetes: >=200 mg/d L plus symptoms Blood Urea Nitrogen 39(H) 8 - 18 mg/dL [facility] Creatinine 1.50(H) 0.70 - 1.20 mg/dL [facility] Sodium 138 135 - 145 mmol/L [facility] Potassium 5.0 3.5 - 5.0 mmol/L [facility] Comment: Please note: ??Patients with WBC >100,000 may have falsely elevated Potassium levels. ??For accurate Potassium quantification in these patients send serum separator tube (gold top) for subsequent determinations. ??Contact the Clinical Chemistry Laboratory if there are any questions. Chloride 103 98 - 107 mmol/L [facility] Carbon Dioxide Not Perf 22 - 31 [facility] Comment:Add-on request. Samp le too old to perform test. Anion Gap Unable to Calculate 5 - 15 mmol/L [facility] Calcium 8.4(L) 8.5 - 10.5 mg/dL [facility] Est Glomerular Filtration Rate 39(L) >=60 mL/min/1 .73 m?? [facility] Comment: This patient's [...] Cobb MD CHEMISTRY ORDERABLES Performing Organization Address [facility] Co de Phone Number [facility] [address] * Potassium (08/15/2022 4:20 PM EDT) Potassium 5.0 3.5 - 5.0 mmol/L [facility] Comment: result rechecked-KT Please note: ??Patients [...] Pascal MD CHEMISTRY ORDERABLES Performing Organization Address [facility] Co de Phone Number [facility] [address] * (ABNORMAL) Heparin (unfractionated) Level (08/15/2022 4:20 PM EDT) UF Heparin 1.17(Crit ical) IU/mL [facility] Comment: Critical Result called by ?? [...] MD HEMATOLOGY ORDERABLE S Performing Organization Address City/State/[facility] Co de Phone Number [facility] [address] * (ABNORMAL) BLOOD GAS 2 ARTERIAL (08/15/2022 4:16 PM EDT) pH, Arterial 7.38 7.35 - 7.45 [facility] PCO2, Arterial 36 35 - 45 mmHg [facility] PO2, Arterial 78(L) 85 - 104 mmHg [facility] Bicarbonate, Arterial 20.8 20.0 - 26.0 mmol/L [facility] Base Excess, Arterial -4.2(L) -3.0 - 3.0 mmol/L [facility] Hgb Blood Gas 11.0(L) 11.7 - 15.5 g/dL [facility] Oxyhemoglobin, Arterial 94.2 94.0 - 97.0 % [facility] Carboxyhemoglob in, Arterial 0.5 % [facility] Comment: Nonsmokers: 0.5-1.5% COHB Smokers: Variable, but usually less than 10% Toxic: 20-30% COHB Lethal: Greater than 60% COHB Methemoglobin, Arterial 0.8 <=1.5 % [facility] Na Whole Blood 135 135 - 145 mmol/L [facility] K Whole Blood 4.5 3.5 - 5.0 mmol/L [facility] Comment: Please note: Patients with WBC >100,000 may have falsely elevated Potassium levels. Contact the Clinical Chemistry Laboratory if there are any questions. ICa Whole Blood 1.14(L) 1.15 - 1.33 mmol/L [facility] Comment: Note: ??Total bilirubin higher than 20 mg/dL may lead to falsely low ionized calcium. CL Whole Blood 105 98 - 107 mmol/L [facility] Gluc Whole Bld 210(H) 65 - 199 mg/dL [facility] Comment:Diabetes: >=200 mg/d L plus symptoms. Lactate WB 1.8 0.5 - 2.2 mmol/L [facility] FIO2 Art 30 % [facility] PF Ratio Art 260 [facility] Blood 08/15/2022 4:16 PM EDT 08/15/2022 4:16 PM EDT Carlos Terry MD POINT OF CARE TEST O GABRIELLA Performing Organization Address City/[facility]/ZIP Co de Phone Number [facility] [address] * POCT Glucose (08/15/2022 2:01 PM EDT) Glucose, POC 94 65 - 199 mg/dL [facility] Comment: Supplemental ranges: <140 mg/dL before meals <180 mg/dL all other times of the day Blood 08/15/2022 2:01 PM EDT 08/15/2022 2:01 PM EDT Carlos Terry MD POINT OF CARE TEST O RDERAREYMUNDO [facility] [place] [address] * POCT Glucose (08/15/2022 1:16 PM EDT) Glucose, POC 89 65 - 199 mg/dL [facility] Comment: Supplemental ranges: <140 mg/dL before meals <180 mg/dL all other times of the day Blood 08/15/2022 1:16 PM EDT 08/15/2022 1:16 PM EDT Carlos Terry MD POINT OF CARE TEST O RDERABLES Performing Organization Address [facility] Co de Phone Number [facility] [address] * POCT Glucose (08/15/2022 1:00 PM EDT) Glucose, POC 69 65 - 199 mg/dL [facility] Comment: Supplemental ranges: <140 mg/dL before meals <180 mg/dL all other times of the day Blood 08/15/2022 1:00 PM EDT 08/15/2022 1:00 PM EDT Carlos Terry MD POINT OF CARE TEST O RDERABLES Performing Organization Address [facility] Co de Phone Number [facility] [address] * Urine culture Indwelling Catheter Urine; Other; sepsis, bacteria on UA (08/15/2022 12:25 PM EDT) Urine Culture 1,000-9,000 cfu/ml Insignificant growth [facility] Indwelling Catheter Urine 08/15/2022 12:25 PM EDT 08/15/2022 12:48 PM EDT Comment:Patient has fever an d at least one of the following clinical symptoms of urinary tract infection (UTI) or additional considerations->Other Narrative Resulting Agency Comment Spec In Lab Carlos Terry MD MICROBIOLOGY - GENER AL ORDERABLES Performing Organization Address [facility] Co de Phone Number [facility] [address] * (ABNORMAL) BLOOD GAS 2 ARTERIAL (08/15/2022 12:18 PM EDT) pH, Arterial 7.37 7.35 - 7.45 [facility] PCO2, Arterial 39 35 - 45 mmHg [facility] PO2, Arterial 92 85 - 104 mmHg [facility] Bicarbonate, Arterial 22.2 20.0 - 26.0 mmol/L [facility] Base Excess, Arterial -3.0 -3.0 - 3.0 mmol/L [facility] Hgb Blood Gas 10.8(L) 11.7 - 15.5 g/dL [facility] Oxyhemoglobin, Arterial 95.6 94.0 - 97.0 % [facility] Carboxyhemoglob in, Arterial 0.5 % [facility] Comment: Nonsmokers: 0.5-1.5% COHB Smokers: Variable, but usually less than 10% Toxic: 20-30% COHB Lethal: Greater than 60% COHB Methemoglobin, Arterial 0.9 <=1.5 % [facility] Na Whole Blood 137 135 - 145 mmol/L [facility] K Whole Blood 4.0 3.5 - 5.0 mmol/L [facility] Comment: Please note: Patients with WBC >100,000 may have falsely elevated Potassium levels. Contact the Clinical Chemistry Laboratory if there are any questions. ICa Whole Blood 1.15 1.15 - 1.33 mmol/L [facility] Comment: Note: ??Total bilirubin higher than 20 mg/dL may lead to falsely low ionized calcium. CL Whole Blood 107 98 - 107 mmol/L [facility] Gluc Whole Bld 57(L) 65 - 199 mg/dL [facility] Comment:Diabetes: >=200 mg/d L plus symptoms. Lactate WB 1.5 0.5 - 2.2 mmol/L [facility] FIO2 Art 30 % [facility] PF Ratio Art 307 [facility] Blood 08/15/2022 12:1 8 PM EDT 08/15/2022 12:18 PM EDT Carlos Terry MD POINT OF CARE TEST O RDERABLES [facility] [place] [address] * (ABNORMAL) Coox2 (08/15/2022 12:13 PM EDT) pO2, Coox 30 mmHg [facility] Hgb Blood Gas 11.1(L) 11.7 - 15.5 g/dL [facility] Oxyhemoglobin, Coox 59.4 % [facility] Carboxyhemoglo bin, Coox 0.4 % [facility] Comment: Nonsmokers: 0.5-1.5% COHB Smokers: Variable, but usually less than 10% Toxic: 20-30% COHB Lethal: Greater than 60% COHB Methemoglobin, Coox 0.9 <=1.5 % [facility] Source Coox Mixed Venous [facility] Blood 08/15/2022 12:1 3 PM EDT 08/15/2022 12:13 PM EDT Carlos Terry MD POINT OF CARE TEST O RDERAREYMUNDO Performing Organization Address City/[facility] Co de Phone Number [facility] [address] * POCT Glucose (08/15/2022 11:59 AM EDT) Glucose, POC 83 65 - 199 mg/dL [facility] Comment: Supplemental ranges: <140 mg/dL before meals <180 mg/dL all other times of the day Blood 08/15/2022 11:5 9 AM EDT 08/15/2022 11:59 AM EDT Carlos Terry MD POINT OF CARE TEST O GABRIELLA Performing Organization Address City/[facility] Co de Phone Number [facility] [address] * COVID-19 PCR (08/15/2022 11:50 AM EDT) SARS-CoV-2 RNA (Rapid) Not Detected Not Detected [facility] Comment: This result should be interpreted [...] Department of Pathology and Laboratory Medicine at [facility], certified under the Clinical Laboratory Improvement Amendments [...] fact sheets at the following FDA website: https://www.fda.gov/medical-devices/ptalrtfenen-fbjbswk-2109-mkkuo-36-dzegcmozb- use-a bfkoscpvmbczo-jantejo-uyfrqso/ogzyb-larwchpvepo-jhaj SARS-CoV-2 Source [employer]END[employer] Swab [facility] Nasopharyngeal Swab 08/16/19 11:50 AM EDT 08/15/2022 12:36 PM EDT Comment:Specimen Source->Wili opharyngeal Swab Narrative Resulting Agency Comment Spec In Lab Carlos Terry MD MICROBIOLOGY - GENER AL ORDERABLES Performing Organization Address [facility] Co de Phone Number [facility] [address] * POCT Glucose (08/15/2022 11:22 AM EDT) Glucose, POC 84 65 - 199 mg/dL [facility] Comment: Supplemental ranges: <140 mg/dL before meals <180 mg/dL all other times of the day Blood 08/15/2022 11:2 2 AM EDT 08/15/2022 11:22 AM EDT Carlos Terry MD POINT OF CARE TEST O RDERABLES Performing Organization Address [facility] Co de Phone Number [facility] [address] * POCT Glucose (08/15/2022 10:13 AM EDT) Glucose, POC 123 65 - 199 mg/dL [facility] Comment: Supplemental ranges: <140 mg/dL before meals <180 mg/dL all other times of the day Blood 08/15/2022 10:1 3 AM EDT 08/15/2022 10:13 AM EDT Carlos Terry MD POINT OF CARE TEST O RDERABLES Performing Organization Address [facility] de Phone Number [facility] [address] * ECHO COMPLETE (08/15/2022 10:04 AM EDT) Anatomical Region Laterality Modality Cardiac Other 08/15/2022 9:38 AM EDT Narrative 08/15/2022 10:34 AM EDT ? Echocardiogram Report Name: ISHAN IRVING ? Study Date: 08/15/2022 09:38 AMBP: 102/54 mmHg ? Patient Location: 0000 ? HR: 99 : 1960 ? Height: 152 cm ? Account: [id number] Age: 62 yrs ? Weight: 69 kg Gender: Female ?BSA: 1.7 m2 Ordering Physician: VENKAT^M Referring Physician: NIURKA AYALA Performed By: Raissa Bhakta RDCS Reason For Study: Septic shock Exam Location: [facility]. Interpretation Summary -Left ventricle is mildly dilated. [...] today's date, LVEF is slightly improved. Procedure Complete-99381. Satisfactory quality. There is normal sinus rhythm. [...] Date: 309:38 AMBP: 102/54 mmHg Patient Location: [id number] HR: 99 : 1960 Height: 152 cm Account: [id number] Age: 62 yrs Weight: 69 kg Gender: Female BSA: 1.7 m2 Ordering Physician: FANY Referring Physician: NIURKA AYALA Performed By: Raissa Bhakta RDCS Reason For Study: Septic shock Exam Location: [facility]. Interpretation Summary -Left ventricle is mildly dilated. [...] today's date, LVEF is slightly improved. Procedure Complete-[id number]. Satisfactory quality. There is normal sinus rhythm. [...] Protein, Total 5.6(L) 6.1 - 8.0 g/dL [facility] Albumin 2.4(L) 3.2 - 5.2 g/dL [facility] Aspartate Aminotransferase 21 0 - 30 unit/L [facility] Alanine Aminotransferase 12 0 - 30 unit/L [facility] Alkaline Phosphatase 102 35 - 105 unit/L [facility] Bilirubin, Total <0.2(L) 0.2 - 1.3 mg/dL [facility] Bilirubin, Direct 0.1 0.0 - 0.3 mg/dL [facility] Blood Venous Draw / Unknown 08/15/2022 9:50 AM EDT 08/15/2022 10:04 AM EDT Narrative Resulting Agency Comment Spec In Lab Jigar Streeter MD CHEMISTRY ORDERABLES Performing Organization Address [facility] Co de Phone Number [facility] [place] [address] * (ABNORMAL) Potassium (08/15/2022 9:50 AM EDT) Potassium 3.2(L) 3.5 - 5.0 mmol/L [facility] Comment: Please note: ??Patients with WBC [...] Pascal MD CHEMISTRY ORDERABLES Performing Organization Address [facility] Co de Phone Number [facility] [place] [address] * (ABNORMAL) Troponin (08/15/2022 9:50 AM EDT) Troponin-T, High Sensitivity 575(H) <=14 ng/L [facility] Comment: This patient's troponin T concentration [...] troponin value can be found in the [facility] Test Catalog Troponin - [facility] Test Catalog Reference: Fourth [place] Definition of Myocardial Infarction. Journal of the [place] [employer] 2018;72:6361-1730 Blood 08/15/2022 9:50 AM EDT 08/15/2022 9:59 AM EDT Narrative Resulting Agency Comment Spec In Lab Carlos Terry MD CHEMISTRY ORDERABLES Performing Organization Address [facility] Co de Phone Number [facility] [place] [address] * Heparin (unfractionated) Level (08/15/2022 8:50 AM EDT) UF Heparin 0.51 IU/mL [facility] Comment: Heparin (anti-Xa) levels should [...] MD HEMATOLOGY ORDERABLE S Performing Organization Address [facility] Co de Phone Number [facility] [address] * (ABNORMAL) BLOOD GAS 2 ARTERIAL (08/15/2022 8:49 AM EDT) pH, Arterial 7.36 7.35 - 7.45 [facility] PCO2, Arterial 37 35 - 45 mmHg [facility] PO2, Arterial 78(L) 85 - 104 mmHg [facility] Bicarbonate, Arterial 20.3 20.0 - 26.0 mmol/L [facility] Base Excess, Arterial -5.1(L) -3.0 - 3.0 mmol/L [facility] Hgb Blood Gas 11.3(L) 11.7 - 15.5 g/dL [facility] Oxyhemoglobin, Arterial 93.8(L) 94.0 - 97.0 % [facility] Carboxyhemoglob in, Arterial 0.5 % [facility] Comment: Nonsmokers: 0.5-1.5% COHB Smokers: Variable, but usually less than 10% Toxic: 20-30% COHB Lethal: Greater than 60% COHB Methemoglobin, Arterial 0.8 <=1.5 % [facility] Na Whole Blood 137 135 - 145 mmol/L [facility] [facility] K Whole Blood 4.0 3.5 - 5.0 mmol/L [facility] Comment: Please note: Patients with WBC >100,000 may have falsely elevated Potassium levels. Contact the Clinical Chemistry Laboratory if there are any questions. ICa Whole Blood 1.21 1.15 - 1.33 mmol/L [facility] Comment: Note: ??Total bilirubin higher than 20 mg/dL may lead to falsely low ionized calcium. CL Whole Blood 106 98 - 107 mmol/L [facility] Gluc Whole Bld 106 65 - 199 mg/dL [facility] Comment:Diabetes: >=200 mg/d L plus symptoms. Lactate WB 2.9(H) 0.5 - 2.2 mmol/L [facility] FIO2 Art 30 % [facility] PF Ratio Art 260 [facility] Blood 08/15/2022 8:49 AM EDT 08/15/2022 8:49 AM EDT Carlos Terry MD POINT OF CARE TEST O RDERABLES [facility] [place] [address] * XR Abdomen 1 view (Generic) (08/15/2022 [...] who have questions please contact the health coronary care unit nurse that requested your imaging first. ? Narrative 08/15/2022 9:05 AM EDT EXAMINATION: XR ABDOMEN 1 VIEW (GENERIC) CLINICAL HISTORY: 62 yo F w/ shock, confirm NG tube placement TECHNIQUE: Single radiograph of the lower chest and upper abdomen for purposes of enteric tube verification and otherwise nondiagnostic. The lower abdomen is excluded from [id number]. COMPARISON: Abdominal radiograph 08/15/2022 FINDINGS: * ??An [...] otherwise nondiagnostic. The lower abdomen isexcluded from [id number]. COMPARISON: Abdominal radiograph 08/15/2022 FINDINGS: * An [...] patients who have questions please contactthe health coronary care unit nurse that requested your imaging first. Carlos Terry MD IMG DX ORDERABLES * POCT Glucose (08/15/2022 7:51 AM EDT) [facility] Signature Glucose, POC 189 65 - 199 mg/dL [facility] Comment: Supplemental ranges: <140 mg/dL before meals <180 mg/dL all other times of the day Blood 08/15/2022 7:51 AM EDT 08/15/2022 7:51 AM EDT Carlos Terry MD POINT OF CARE TEST O RDERABLES [facility] [place] [address] * Lower Respiratory Culture Sputum Induced (08/15/2022 7:40 AM EDT) Lower Respiratory Culture Rare normal upper respiratory wiley [facility] Gram Stain Many Neutrophils Few squamous epithelial cells Rare mixed bacterial morphotypes suggestive of normal upper respiratory wiley [facility] Sputum Induced 08/15/2022 7: 40 AM EDT 08/15/2022 10:13 AM EDT Narrative Resulting Agency Comment Spec In Lab Carlos Terry MD MICROBIOLOGY - GENER AL ORDERABLES [facility] [place] [address] * EKG 12 Lead (08/15/2022 7:36 AM EDT) Ventricular rate 106 BPM MUSE SYSTEM Atrial Rate 106 BPM MUSE SYSTEM P-R Interval 128 ms MUSE SYSTEM QRS Duration 70 ms MUSE SYSTEM Q-T Interval 362 ms MUSE SYSTEM QTC Calculated (Bezet) 480 ms MUSE SYSTEM Calculated P [place] 59 degrees MUSE SYSTEM Calculated R [place] 94 degrees MUSE SYSTEM Calculated T [place] 160 degrees MUSE SYSTEM INTERPRETATION Sinus tachycardia Rightward axis Low voltage QRS Septal infarct (cited on or before 14-AUG-2022) T wave abnormality, consider anterolateral ischemia Abnormal ECG When compared with ECG of 14-AUG-2022 23:19, Lateral T wave inversion is more prounced QRS axis Shifted right Confirmed by MD Harrison, Carlos Orlando. ([id number]) on 08/17/2022 6:16:58 PM MUSE SYSTEM 08/15/2022 7:36 AM EDT 08/17/2022 6:16 PM EDT Carlos Terry MD ECG ORDERABLES Performing Organization Address City/[facility]/ZIP Co de Phone Number MUSE SYSTEM [...] who have questions please contact the health coronary care unit nurse that requested your imaging [...] patients who have questions please contactthe health coronary care unit nurse that requested your imaging first. Carlos Terry MD IMG DX ORDERABLES * (ABNORMAL) POCT Glucose (08/15/2022 6:38 AM EDT) Glucose, POC 219(H) 65 - 199 mg/dL [facility] Comment: Supplemental ranges: <140 mg/dL before meals <180 mg/dL all other times of the day Blood 08/15/2022 6:38 AM EDT 08/15/2022 6:38 AM EDT Carlos Terry MD POINT OF CARE TEST O RDERABLES Performing Organization Address City/[facility]/ZIP Co de Phone Number [facility] [place] [address] * (ABNORMAL) Lactate, whole blood, send to lab ([facility]) (08/15/2022 5:55 AM EDT) [facility] Lactate WB 3.1(H) 0.5 - 2.2 mmol/L [facility] Blood 08/15/2022 5:55 AM EDT 08/15/2022 6:02 AM EDT Narrative Resulting Agency Comment Spec In Lab Carlos Terry MD CHEMISTRY ORDERABLES [facility] [address] * (ABNORMAL) Coox2 (08/15/2022 5:33 AM EDT) pO2, Coox 34 mmHg [facility] Hgb Blood Gas 11.1(L) 11.7 - 15.5 g/dL [facility] Oxyhemoglobin, Coox 63.7 % [facility] Carboxyhemoglo bin, Coox 0.6 % [facility] Comment: Nonsmokers: 0.5-1.5% COHB Smokers: Variable, but usually less than 10% Toxic: 20-30% COHB Lethal: Greater than 60% COHB Methemoglobin, Coox 1.0 <=1.5 % [facility] Source Coox Mixed Venous [facility] Blood 08/15/2022 5:33 AM EDT 08/15/2022 5:33 AM EDT Carlos Terry MD POINT OF CARE TEST O RDERABLES [facility] [address] [place] [address] * (ABNORMAL) BLOOD GAS 2 ARTERIAL (08/15/2022 5:31 AM EDT) pH, Arterial 7.30(L) 7.35 - 7.45 [facility] PCO2, Arterial 41 35 - 45 mmHg [facility] PO2, Arterial 117(H) 85 - 104 mmHg [facility] Bicarbonate, Arterial 19.6(L) 20.0 - 26.0 mmol/L [facility] Base Excess, Arterial -6.9(L) -3.0 - 3.0 mmol/L [facility] Hgb Blood Gas 11.2(L) 11.7 - 15.5 g/dL [facility] Oxyhemoglobin, Arterial 96.8 94.0 - 97.0 % [facility] Carboxyhemoglob in, Arterial 0.2 % [facility] Comment: Nonsmokers: 0.5-1.5% COHB Smokers: Variable, but usually less than 10% Toxic: 20-30% COHB Lethal: Greater than 60% COHB Methemoglobin, Arterial 0.8 <=1.5 % [facility] Na Whole Blood 140 135 - 145 mmol/L [facility] K Whole Blood 2.7(Critic al) 3.5 - 5.0 mmol/L [facility] Comment: Noted by musical instrument supervisor. Please note: Patients with WBC >100,000 may have falsely elevated Potassium levels. Contact the Clinical Chemistry Laboratory if there are any questions. ICa Whole Blood 1.16 1.15 - 1.33 mmol/L [facility] Comment: Note: ??Total bilirubin higher than 20 mg/dL may lead to falsely low ionized calcium. CL Whole Blood 109(H) 98 - 107 mmol/L [facility] Gluc Whole Bld 277(H) 65 - 199 mg/dL [facility] Comment:Diabetes: >=200 mg/d L plus symptoms. Lactate WB 3.6(H) 0.5 - 2.2 mmol/L [facility] FIO2 Art 40 % [facility] PF Ratio Art 292 [facility] Blood 08/15/2022 5:31 AM EDT 08/15/2022 5:31 AM EDT Carlos Terry MD POINT OF CARE TEST O RDERABLES Performing Organization Address City/[facility]/ZIP Co de Phone Number [facility] [address] * (ABNORMAL) POCT Glucose (08/15/2022 5:00 AM EDT) Glucose, POC 280(H) 65 - 199 mg/dL [facility] Comment: Supplemental ranges: <140 mg/dL before meals <180 mg/dL all other times of the day Blood 08/15/2022 5:00 AM EDT 08/15/2022 5:00 AM EDT Carlos Terry MD POINT OF CARE TEST O RDERABLES Performing Organization Address City/[facility] Co de Phone Number [facility] [address] * (ABNORMAL) BLOOD GAS 2 ARTERIAL (08/15/2022 3:11 AM EDT) pH, Arterial 7.25(Criti tonya) 7.35 - 7.45 [facility] Comment:Noted by musical instrument supervisor. PCO2, Arterial 38 35 - 45 mmHg [facility] PO2, Arterial 112(H) 85 - 104 mmHg [facility] Bicarbonate, Arterial 16.0(L) 20.0 - 26.0 mmol/L [facility] Base Excess, Arterial -11.2(L) -3.0 - 3.0 mmol/L [facility] Hgb Blood Gas 11.0(L) 11.7 - 15.5 g/dL [facility] Oxyhemoglobin, Arterial 96.4 94.0 - 97.0 % [facility] Carboxyhemoglob in, Arterial 0.1 % [facility] Comment: Nonsmokers: 0.5-1.5% COHB Smokers: Variable, but usually less than 10% Toxic: 20-30% COHB Lethal: Greater than 60% COHB Methemoglobin, Arterial 0.9 <=1.5 % [facility] Na Whole Blood 138 135 - 145 mmol/L [facility] K Whole Blood 3.4(L) 3.5 - 5.0 mmol/L [facility] Comment: Please note: Patients with WBC >100,000 may have falsely elevated Potassium levels. Contact the Clinical Chemistry Laboratory if there are any questions. ICa Whole Blood 1.16 1.15 - 1.33 mmol/L [facility] Comment: Note: ??Total bilirubin higher than 20 mg/dL may lead to falsely low ionized calcium. CL Whole Blood 106 98 - 107 mmol/L [facility] Gluc Whole Bld 324(H) 65 - 199 mg/dL [facility] Comment:Diabetes: >=200 mg/d L plus symptoms. Lactate WB 1.9 0.5 - 2.2 mmol/L [facility] FIO2 Art 40 % [facility] PF Ratio Art 280 [facility] Blood 08/15/2022 3:11 AM EDT 08/15/2022 3:11 AM EDT Carlos Terry MD POINT OF CARE TEST O RDERABLES [facility] [place] [address] * (ABNORMAL) Hepatic Function Panel (08/15/2022 3:05 AM EDT) Protein, Total 5.6(L) 6.1 - 8.0 g/dL [facility] Albumin 2.4(L) 3.2 - 5.2 g/dL [facility] Aspartate Aminotransferase 25 0 - 30 unit/L [facility] Alanine Aminotransferase 13 0 - 30 unit/L [facility] Alkaline Phosphatase 99 35 - 105 unit/L [facility] Bilirubin, Total 0.2 0.2 - 1.3 mg/dL [facility] Bilirubin, Direct 0.1 0.0 - 0.3 mg/dL [facility] Blood Venous Draw / Unknown 08/15/2022 3:05 AM EDT 08/15/2022 3:17 AM EDT Narrative Resulting Agency Comment Spec In Lab Vanessa Escalona MD CHEMISTRY ORDERABLE S [facility] [address] [place] [address] * (ABNORMAL) Basic Metabolic Panel (non-fasting) (08/15/2022 3:05 AM EDT) Glucose 378(H) 65 - 199 mg/dL [facility] Comment:Diabetes: >=200 mg/d L plus symptoms Blood Urea Nitrogen 38(H) 8 - 18 mg/dL [facility] Creatinine 1.42(H) 0.70 - 1.20 mg/dL [facility] Sodium 140 135 - 145 mmol/L [facility] Potassium 3.7 3.5 - 5.0 mmol/L [facility] Comment: Please note: ??Patients with WBC >100,000 may have falsely elevated Potassium levels. ??For accurate Potassium quantification in these patients send serum separator tube (gold top) for subsequent determinations. ??Contact the Clinical Chemistry Laboratory if there are any questions. Chloride 104 98 - 107 mmol/L [facility] Carbon Dioxide Not Perf 22 - 31 [facility] Comment:Add-on request. Samp le too old to perform test. Anion Gap Unable to Calculate 5 - 15 mmol/L [facility] Calcium 8.3(L) 8.5 - 10.5 mg/dL [facility] Est Glomerular Filtration Rate 42(L) >=60 mL/min/1 .73 m?? [facility] Comment: This patient's estimated GFR was [...] Cobb MD CHEMISTRY ORDERABLES Performing Organization Address City/[facility] Co de Phone Number [facility] [address] * Scan, Peripheral Blood (08/15/2022 3:05 AM EDT) Plat estimate Increased [facility] RBC Morphology Abnormal [facility] Macrocyte 1-5 /HPF [facility] Microcyte 6-10 /HPF [facility] Comment:Corrected from 1-5 / HPF [NA] on 08/15/22 3:54:48 EDT by Cedric Forbes Hypochromia Moderate [facility] Target Cells 1-5 /HPF [facility] Connor Cells gtr than 10 /HPF [facility] Comment:Corrected from 1-5 / HPF [NA] on 08/15/22 3:54:48 EDT by Cedric Forbes Platelet Clumps Present [facility] Blood 08/15/2022 3:05 AM EDT 08/15/2022 3:16 AM EDT Narrative Resulting Agency Comment Spec In Lab Tyler Cobb MD HEMATOLOGY ORDERABLE S Performing Organization Address [facility]/ZIP Co de Phone Number [facility] [address] * (ABNORMAL) Differential, Automated (08/15/2022 3:05 AM EDT) Neutrophil % 89.8 % [facility] Neutrophil Absolute 35.76(H) 1.70 - 6.10 x10(3)/mc L [facility] Lymph % 2.3 % [facility] Lymphocytes Abs 0.9 0.9 - 3.2 x10(3)/mc L [facility] Monocyte % 4.6 % [facility] Monocyte Abs 1.8(H) 0.3 - 0.9 x10(3)/mc L [facility] Eos % 0.5 % [facility] Eosinophils Abs 0.2 0.0 - 0.4 x10(3)/ L [facility] Basophil % 0.1 % [facility] Baso Absolute 0.0 0.0 - 0.1 x10(3)/mc L [facility] Immature Gran % 2.70 % [facility] Comment: Immature granulocytes(IG's)percentage and absolute count will include metamyelocytes, myelocytes, and promyelocytes. Blood smears from CBCs yielding IG's will be scanned manually for concordance. If this scan disagrees with the automated IG or if promyelocytes are noted, a manual differential will be performed. Immature Gran Absolute 1.08(H) 0.00 - 0.04 x10(3)/ L [facility] Blood 08/15/2022 3:05 AM EDT 08/15/2022 3:16 AM EDT Narrative Resulting Agency Comment Spec In Lab Tyler Cobb MD HEMATOLOGY ORDERABLE S [facility] [address] * (ABNORMAL) Hemogram (08/15/2022 3:05 AM EDT) White Blood Cell 39.8(Critica l) 4.0 - 9.5 x10(3)/ L [facility] Comment: This result has been called to MIROSLAVA BERRY by Cedric Forbes on 08 15 2022 at 0341, and has been read back. Red Blood Cell 5.08 4.00 - 5.21 x10(6)/mc L [facility] Hemoglobin 10.2(L) 11.7 - 15.5 g/dL [facility] Hematocrit 34.4(L) 35.7 - 45.8 % [facility] Mean Cell Volume 67.7(L) 82.6 - 94.4 fL [facility] Mean Cell Hemoglobin 20.1(L) 27.1 - 32.0 pg [facility] Mean Cell Hemoglobin Concentration 29.7(L) 31.7 - 35.0 g/dL [facility] Platelet 350 145 - 357 x10(3)/mc L [facility] RDW Standard Deviation 68.0(H) 37.0 - 46.0 fL [facility] RDW coefficient of variation 29.2(H) 11.5 - 14.1 % [facility] Mean Platelet Volume Not Measured 7.6 - 12.9 fL [facility] NRBC% auto 0.3 % [facility] NRBC Absolute 0.130(H) 0.000 - 0.000 x10(3)/ L [facility] Blood 08/15/2022 3:05 AM EDT 08/15/2022 3:16 AM EDT Narrative Resulting Agency Comment Spec In Lab Tyler Cobb MD HEMATOLOGY ORDERABLE S [facility] [address] * (ABNORMAL) Hemoglobin A1c (08/15/2022 3:05 AM EDT) Hemoglobin A1c 6.2(H) 4.3 - 5.6 % [facility] Comment: Reference Range: 4.3 - 5.6% [...] Mellitus, Diabetes Care 2013; 36: Suppl. 1, D07-70 Estimated Average Glucose 130 mg/dL [facility] Comment: eAG equivalents for HbA1c percentages: [...] into estimated average glucose values. ??Diabetes Care 2008:31(8):1882-7239. Blood 08/15/2022 3:05 AM EDT 08/15/2022 3:16 AM EDT Narrative Resulting Agency Comment Spec In Lab Carlos Terry MD CHEMISTRY ORDERABLES [facility] [place] [address] * Heparin (unfractionated) Level (08/15/2022 3:05 AM EDT) UF Heparin 0.92 IU/mL [facility] Comment: Heparin (anti-Xa) [...] MD HEMATOLOGY ORDERABLE S Performing Organization Address [facility] Co de Phone Number [facility] [address] * (ABNORMAL) Phosphorus (08/15/2022 3:05 AM EDT) Phosphorus 5.3(H) 2.5 - 4.5 mg/dL [facility] Blood 08/15/2022 3:05 AM EDT 08/15/2022 3:16 AM EDT Narrative Resulting Agency Comment Spec In Lab Richard Pascal MD CHEMISTRY ORDERABLES Performing Organization Address [facility] Co de Phone Number [facility] [address] * Magnesium (08/15/2022 3:05 AM EDT) Magnesium 0.90 0.69 - 1.07 mmol/L [facility] Blood 08/15/2022 3:05 AM EDT 08/15/2022 3:16 AM EDT Narrative Resulting Agency Comment Spec In Lab Richard Pascal MD CHEMISTRY ORDERABLES Performing Organization Address [facility] Co de Phone Number [facility] [address] * (ABNORMAL) Urinalysis Microscopic Exam (08/15/2022 1:50 AM EDT) RBC, Urine 15(H) 0 - 4 /HPF [facility] Comment: Interpret results with caution, microscopic results are from suboptimal specimen volume WBC, Urine 5 0 - 5 /HPF [facility] Comment: Interpret results with caution, microscopic results are from suboptimal specimen volume Bacteria, Urine Many(A) None /HPF [facility] Comment: Interpret results with caution, microscopic results are from suboptimal specimen volume Squamous Epithelial Cells Raw Data, Urine 4 <=4 /HPF [facility] Hyaline Casts, Urine <1 0 - 2 /LPF [facility] Comment: Interpret results with caution, microscopic results are from suboptimal specimen volume Indwelling Catheter Urine 08/15/2022 1:50 AM EDT 08/15/2022 1:55 AM EDT Narrative Resulting Agency Comment Spec In Lab Tyler Cobb MD URINE ORDERABLES [facility] [place] [address] * (ABNORMAL) Urinalysis with reflex Culture (08/15/2022 1:50 AM EDT) Glucose, Urine Dipstick Negative Negative mg/dL [facility] Protein, Urine Dipstick Trace(A) Negative mg/dL [facility] Bilirubin, Urine Dipstick Negative Negative mg/dL [facility] Comment: Clinical correlation required for positive Urine Bilirubin results as false positive may occur with some drugs and drug related products. If a false positive is suspected a serum total bilirubin should be considered if clinically indicated. Urobilinogen, Urine Dipstick Normal Normal mg/dL [facility] pH, Urn (dipstick) 5.5 5.0 - 8.0 [facility] Blood, Urine Dipstick Large(A) Negative mg/dL [facility] Ketone, Urine Dipstick Trace(A) Negative mg/dL [facility] Nitrite, Urine Dipstick Negative Negative [facility] Leukocytes, Urine Dipstick Trace(A) Negative [facility] [address] [facility] Appearance, Urine Dipstick Cloudy(A) Clear [facility] Specific [place] Urine Automated 1.015 1.005 - 1.030 [facility] Color, Urine Dipstick Yellow Yellow [facility] Reflex to Culture No [facility] Indwelling Catheter Urine 08/15/2022 1:50 AM EDT 08/15/2022 1:55 AM EDT Narrative Resulting Agency Comment Spec In Lab Carlos Terry [place] [address] * XR Chest One View (08/15/2022 1:14 [...] who have questions please contact the health coronary care unit nurse that requested your imaging first. ? Narrative 08/15/2022 3:55 AM EDT EXAMINATION: XR CHEST ONE VIEW CLINICAL HISTORY: confirm [place] placement TECHNIQUE: 1 view of the chest COMPARISON: 08/15/2022 Procedure Note Davi Terry MD - 08/15/2022 EXAMINATION: XR CHEST ONE VIEW CLINICAL HISTORY: confirm [place] placement TECHNIQUE: 1 view of the chest [...] patients who have questions please contactthe health coronary care unit nurse that requested your imaging first. Carlos Terry MD IMG DX ORDERABLES * (ABNORMAL) Coox2 (08/15/2022 1:13 AM EDT) pO2, Coox 36 mmHg [facility] Hgb Blood Gas 11.4(L) 11.7 - 15.5 g/dL [facility] Oxyhemoglobin, Coox 63.3 % [facility] Carboxyhemoglo bin, Coox 0.6 % [facility] Comment: Nonsmokers: 0.5-1.5% COHB Smokers: Variable, but usually less than 10% Toxic: 20-30% COHB Lethal: Greater than 60% COHB Methemoglobin, Coox 0.8 <=1.5 % [facility] Source Coox Mixed Venous [facility] Blood 08/15/2022 1:13 AM EDT 08/15/2022 1:13 AM EDT Carlos Terry MD POINT OF CARE TEST O RDERABLES Performing Organization Address City/State/[facility] Co de Phone Number [facility] [address] * Blood culture (08/15/2022 1:10 AM EDT) Blood Culture No growth at 5 days. [facility] Blood 08/15/2022 1:10 AM EDT 08/15/2022 2:05 AM EDT Comment:neck Narrative Resulting Agency Comment Spec In Lab Carlos Terry MD MICROBIOLOGY - BLOOD ORDERABLES Performing Organization Address City/[facility] Co de Phone Number [facility] [address] * XR Chest One View (08/15/2022 1:00 [...] who have questions please contact the health coronary care unit nurse that requested your imaging [...] patients who have questions please contactthe health coronary care unit nurse that requested your imaging first. Carlos Terry MD IMG DX ORDERABLES * MRSA PCR Screen ([facility]P/APD/[facility]) (08/15/2022 12:50 AM EDT) MRSA PCR Negative Negative [facility] MRSA (Interp) Methicillin-resist ant Staphylococcus aureus (MRSA) is NOT DETECTED The MRSA target DNA sequences (mec and SCC) were not detected within the acceptable ranges using the Xpert MRSA NxG on the GeneXpert Dx System ([employer]). This suggests the absence of MRSA in the patient specimen submitted for testing. This test is cleared by the U.S. Food and Drug Administration for clinical use and its performance characteristics have been verified by the [facility] at [facility] [place]. This result does not rule out the presence of any other organisms. Rare false negative results may occur if MRSA is present at low concentrations with much higher concentrations of other organisms including MRSE or S. aureus with an empty SCC cassette. [facility] Comment: [VERIFIED DATE]08.17.22 Verified By:Shannon Smiley (Electronic Signature) Nasopharyngeal Swab 08/16/19 12:50 AM EDT 08/17/2022 8:38 AM EDT Comment:Specimen Type->Nasop haryngeal Swab Narrative Resulting Agency Comment Spec In Lab Carlos Terry MD MOLECULAR ORDERABLES [facility] [place] [address] * TSH [place] (08/15/2022 12:00 AM EDT) Thyroid Stimulating Hormone 0.28 0.27 - 4.20 mcIU/mL [facility] Comment: Reference Interval (mcIU/mL): Females: ??First Trimester: 0.23-3.88 ??Second Trimester: 0.22-3.90 ??Third Trimester: 0.44-4.66 Blood Venous Draw / Unknown 08/15/2022 08/15/2022 12:26 AM EDT Narrative Resulting Agency Comment Spec In Lab Jigar Streeter MD CHEMISTRY ORDERABLES Performing Organization Address [facility]/ZIP Co de Phone Number [facility] [place] [address] * Gold Tube HOLD (08/15/2022 12:00 AM EDT) Pathologist [facility] Gold Hold Sample in lab. [facility] Blood Venous Draw / Unknown 08/15/2022 08/15/2022 12:16 AM EDT Tyler Cobb MD CHEMISTRY ORDERABLES Performing Organization Address [facility] Co de Phone Number [facility] [address] * (ABNORMAL) APTT (08/15/2022 12:00 AM EDT) Pathologist [facility] Partial Thromboplastin Time 154(Criti tonya) 25 - 37 sec [facility] Comment: Critical Result called by ?? [...] MD HEMATOLOGY ORDERABLE S Performing Organization Address City/[facility]/ZIP Co de Phone Number [facility] [address] * (ABNORMAL) Prothrombin Time (08/15/2022 12:00 AM EDT) Prothrombin Time 22.3(H) 9.4 - 12.5 sec [facility] International Normalization Ratio 2.0 [facility] Comment: An INR <2.0 indicates adequate [...] Lab Carlos Terry MD HEMATOLOGY ORDERABLE S [facility] [address] * (ABNORMAL) BLOOD GAS 2 ARTERIAL (08/14/2022 11:57 PM EDT) pH, Arterial 7.25(Criti tonya) 7.35 - 7.45 [facility] Comment:Noted by musical instrument supervisor. PCO2, Arterial 42 35 - 45 mmHg [facility] PO2, Arterial 242(H) 85 - 104 mmHg [facility] Bicarbonate, Arterial 17.9(L) 20.0 - 26.0 mmol/L [facility] Base Excess, Arterial -9.3(L) -3.0 - 3.0 mmol/L [facility] Hgb Blood Gas 11.2(L) 11.7 - 15.5 g/dL [facility] Oxyhemoglobin, Arterial 98.0(H) 94.0 - 97.0 % [facility] Carboxyhemoglob in, Arterial 0.3 % [facility] Comment: Nonsmokers: 0.5-1.5% COHB Smokers: Variable, but usually less than 10% Toxic: 20-30% COHB Lethal: Greater than 60% COHB Methemoglobin, Arterial 0.9 <=1.5 % [facility] Na Whole Blood 140 135 - 145 mmol/L [facility] K Whole Blood 3.5 3.5 - 5.0 mmol/L [facility] Comment: Please note: Patients with WBC >100,000 may have falsely elevated Potassium levels. Contact the Clinical Chemistry Laboratory if there are any questions. ICa Whole Blood 1.16 1.15 - 1.33 mmol/L [facility] Comment: Note: ??Total bilirubin higher than 20 mg/dL may lead to falsely low ionized calcium. CL Whole Blood 110(H) 98 - 107 mmol/L [facility] Gluc Whole Bld 235(H) 65 - 199 mg/dL [facility] Comment:Diabetes: >=200 mg/d L plus symptoms. Lactate WB 2.6(H) 0.5 - 2.2 mmol/L [facility] FIO2 Art 60 % [facility] PF Ratio Art 403 [facility] Blood 08/14/2022 11:5 7 PM EDT 08/14/2022 11:57 PM EDT Carlos Terry MD POINT OF CARE TEST O RDERABLES Performing Organization Address City/[facility]/ZIP Co de Phone Number [facility] [address] * Scan, Peripheral Blood (08/14/2022 11:55 PM EDT) Plat estimate Increased [facility] RBC Morphology Abnormal [facility] Microcyte 6-10 /HPF [facility] Hypochromia Moderate [facility] Connor Cells gtr than 10 /HPF [facility] Platelet Clumps Present [facility] Blood 08/14/2022 11:5 5 PM EDT 08/15/2022 12:06 AM EDT Narrative Resulting Agency Comment Spec In Lab Tyler Cobb MD HEMATOLOGY ORDERABLE S Performing Organization Address City/[facility]/ZIP Co de Phone Number [facility] [address] * Vancomycin Level, Random (08/14/2022 11:55 PM EDT) Vancomycin, Random 12.1 mg/L [facility] Comment: This level is for determination of the patient's vancomycin uvio-ljgos-uef-curve (AUC) value. Contact the inpatient pharmacy for interpretation. Blood Venous Draw / Unknown 08/14/2022 11:55 PM EDT 08/15/2022 12:11 AM EDT Carlos Terry MD CHEMISTRY ORDERABLES [facility] [address] * (ABNORMAL) Differential, Automated (08/14/2022 11:55 PM EDT) Neutrophil % 91.3 % [facility] Neutrophil Absolute 33.56(H) 1.70 - 6.10 x10(3)/mc L [facility] Lymph % 1.2 % [facility] Lymphocytes Abs 0.4(L) 0.9 - 3.2 x10(3)/mc L [facility] Monocyte % 4.4 % [facility] Monocyte Abs 1.6(H) 0.3 - 0.9 x10(3)/mc L [facility] Eos % 0.5 % [facility] Eosinophils Abs 0.2 0.0 - 0.4 x10(3)/mc L [facility] Basophil % 0.5 % [facility] Baso Absolute 0.2(H) 0.0 - 0.1 x10(3)/mc L [facility] Immature Gran % 2.10 % [facility] Comment: Immature granulocytes(IG's)percentage and absolute count will include metamyelocytes, myelocytes, and promyelocytes. Blood smears from CBCs yielding IG's will be scanned manually for concordance. If this scan disagrees with the automated IG or if promyelocytes are noted, a manual differential will be performed. Immature Gran Absolute 0.77(H) 0.00 - 0.04 x10(3)/mc L [facility] Blood 08/14/2022 11:5 5 PM EDT 08/15/2022 12:06 AM EDT Narrative Resulting Agency Comment Spec In Lab Tyler Cobb MD HEMATOLOGY ORDERABLE S [facility] [address] * (ABNORMAL) Hemogram (08/14/2022 11:55 PM EDT) White Blood Cell 36.7(Critica l) 4.0 - 9.5 x10(3)/mc L [facility] Comment: This result has been called to HARLEY CASON by Cedric Forbes on 08 15 2022 at 0018, and has been read back. Red Blood Cell 5.28(H) 4.00 - 5.21 x10(6)/mc L [facility] Hemoglobin 10.7(L) 11.7 - 15.5 g/dL [facility] Hematocrit 35.9 35.7 - 45.8 % [facility] Mean Cell Volume 68.0(L) 82.6 - 94.4 fL [facility] Mean Cell Hemoglobin 20.3(L) 27.1 - 32.0 pg [facility] Mean Cell Hemoglobin Concentration 29.8(L) 31.7 - 35.0 g/dL [facility] Platelet 370(H) 145 - 357 x10(3)/mc L [facility] RDW Standard Deviation 68.2(H) 37.0 - 46.0 fL [facility] RDW coefficient of variation 29.3(H) 11.5 - 14.1 % [facility] Mean Platelet Volume Not Measured 7.6 - 12.9 fL [facility] NRBC% auto 0.2 % [facility] NRBC Absolute 0.080(H) 0.000 - 0.000 x10(3)/mc L [facility] Blood 08/14/2022 11:5 5 PM EDT 08/15/2022 12:06 AM EDT Narrative Resulting Agency Comment Spec In Lab Tyler Cobb MD HEMATOLOGY ORDERABLE S [facility] [place] [address] * Blood culture (08/14/2022 11:55 PM EDT) Blood Culture No growth at 5 days. [facility] Blood 08/14/2022 11:5 5 PM EDT 08/15/2022 1:51 AM EDT Comment:R wrist Narrative Resulting Agency Comment Spec In Lab Carlos Terry MD MICROBIOLOGY - BLOOD ORDERABLES Performing Organization Address City/[facility]/ZIP Co de Phone Number [facility] [place] [address] * (ABNORMAL) pro-Brain Natriuretic Peptide (08/14/2022 11:55 PM EDT) NT-proBNP >35,000(H) <=124 pg/mL [facility] Blood 08/14/2022 11:5 5 PM EDT 08/15/2022 12:06 AM EDT Narrative Resulting Agency Comment Spec In Lab Carlos Terry MD CHEMISTRY ORDERABLES Performing Organization Address City/[facility] Co de Phone Number [facility] [place] [address] * (ABNORMAL) Phosphorus (08/14/2022 11:55 PM EDT) Phosphorus 5.9(H) 2.5 - 4.5 mg/dL [facility] Blood 08/14/2022 11:5 5 PM EDT 08/15/2022 12:06 AM EDT Narrative Resulting Agency Comment Spec In Lab Carlos Terry MD CHEMISTRY ORDERABLES Performing Organization Address City/[facility] Co de Phone Number [facility] [address] * Magnesium (08/14/2022 11:55 PM EDT) Magnesium 0.97 0.69 - 1.07 mmol/L [facility] Blood 08/14/2022 11:5 5 PM EDT 08/15/2022 12:06 AM EDT Narrative Resulting Agency Comment Spec In Lab Carlos Terry MD CHEMISTRY ORDERABLES [facility] [place] [address] * (ABNORMAL) Troponin (08/14/2022 11:55 PM EDT) Troponin-T, High Sensitivity 617(H) <=14 ng/L [facility] Comment: This patient's troponin T concentration [...] troponin value can be found in the [facility] Test Catalog Troponin - [facility] Test Catalog Reference: Fourth [place] Definition of Myocardial Infarction. Journal of the [place] [employer] 2018;72:1915-0577 Blood 08/14/2022 11:5 5 PM EDT 08/15/2022 12:06 AM EDT Narrative Resulting Agency Comment Spec In Lab Carlos Terry MD CHEMISTRY ORDERABLES [facility] [place] [address] * (ABNORMAL) Basic Metabolic Panel (non-fasting) (08/14/2022 11:55 PM EDT) Glucose 258(H) 65 - 199 mg/dL [facility] Comment:Diabetes: >=200 mg/d L plus symptoms Blood Urea Nitrogen 36(H) 8 - 18 mg/dL [facility] Creatinine 1.40(H) 0.70 - 1.20 mg/dL [facility] Sodium 141 135 - 145 mmol/L [facility] Potassium 4.0 3.5 - 5.0 mmol/L [facility] Comment: Please note: ??Patients with WBC >100,000 may have falsely elevated Potassium levels. ??For accurate Potassium quantification in these patients send serum separator tube (gold top) for subsequent determinations. ??Contact the Clinical Chemistry Laboratory if there are any questions. Chloride 107 98 - 107 mmol/L [facility] Carbon Dioxide 17(L) 22 - 31 mmol/L [facility] Anion Gap 17(H) 5 - 15 mmol/L [facility] Calcium 8.5 8.5 - 10.5 mg/dL [facility] Est Glomerular Filtration Rate 43(L) >=60 mL/min/1. 73 m?? [facility] Comment: This patient's estimated GFR was [...] In Lab Carlos Terry MD CHEMISTRY ORDERABLES [facility] [place] [address] * (ABNORMAL) Point of Care Blood Gas Historical (08/14/2022 10:32 PM EDT) pH, POC 7.15(Crit ical) 7.35 - 7.45 [facility] Comment:Critical result OK - [facility] pCO2, POC 68(Critic al) 35 - 45 mmHg [facility] Comment:Critical result OK - [facility] pO2, POC 47(Critic al) 85 - 104 mmHg [facility] Comment:Critical result OK - [facility] Base Excess, POC -5.0(L) -3.0 - 3.0 mmol/L [facility] Bicarbonate, POC 23.9 20.0 - 26.0 mmol/L [facility] Sodium, POC 142 135 - 145 mmol/L [facility] POC Potassium 3.8 3.5 - 5.0 mmol/L [facility] Ionized Calcium, POC 1.21 1.15 - 1.33 mmol/L [facility] POC Hematocrit 36.0 34.0 - 45.0 % [facility] POC Calc Hgb 12.2 11.2 - 15.7 g/dL [facility] Comment:The calculation of h emoglobin from hematocrit assumes a normal MCHC. POC Bgas Loc [facility] Blood 08/14/2022 10:3 2 PM EDT 08/16/2022 12:00 PM EDT Carlos Terry MD CHEMISTRY ORDERABLES [facility] [place] [address] * Film Library- Storage Only DX Chest [...] is for storage only. Audi Serna MD [facility] FILM LIBRARY ORD ERABLES * Film Library- Storage Only DX Chest (08/12/2022 12:05 AM EDT) Narrative Dicom, Auditing User - 08/15/2022 8:37 AM EDT This exam is auto-finalizing. It's purpose is for storage only. Audi Serna MD [facility] FILM LIBRARY ORD ERABLES * Film Library- Storage Only CT Chest (08/12/2022 12:00 AM EDT) Narrative Dicom, Auditing User - 08/15/2022 8:36 AM EDT This exam is auto-finalizing. It's purpose is for storage only. Audi Serna MD [facility] FILM LIBRARY ORD ERABLES * Film Library- Storage Only DX Chest (08/08/2022 12:15 AM EDT) Narrative Dicom, Auditing User - 08/15/2022 8:43 AM EDT This exam is auto-finalizing. It's purpose is for storage only. Audi Serna MD [facility] FILM LIBRARY ORD ERABLES * Film Library- Storage Only DX Pelvis (08/08/2022 12:10 AM EDT) Narrative Dicom, Auditing User - 08/15/2022 8:37 AM EDT This exam is auto-finalizing. It's purpose is for storage only. Audi Serna MD [facility] FILM LIBRARY ORD ERABLES * Film Library- Storage Only DX Lower Extremity (08/08/2022 12:05 AM EDT) Narrative Dicom, Auditing User - 08/15/2022 8:37 AM EDT This exam is auto-finalizing. It's purpose is for storage only. Audi Serna MD [facility] [...] 75 mg, Oral, DAILY, First dose on 08/16/22 at 0900, Until Discontinued, Routine Given [...] 10 mg, Intravenous, ONCE, 1 dose, On Ebtty 09/10/22 at 2300, Routine Given 09/10/2022 10:32 [...] Intravenous, EVERY 15 MIN PRN, Starting on Wed08/14/22 at 2334, Until Betty 08/20/22 at 1430, [...] DAY, First dose (after last modification) on [place] 08/23/22 at 0900, Until Discontinued, Each mL contains 12 mg of elemental iron, Routine Given 09/08/2022 9:57 AM EDT 30 0 mg Given 09/06/2022 9:31 AM EDT 300 mg Given 09/04/2022 8:12 AM EDT 300 mg ferrous sulfate (60 mg/mL) oral liquid 300 mg 300 mg, Per G Tube, EVERY OTHER DAY, First dose (after last modification) on [facility] 09/12/22 at 0900, Until Discontinued, Each mL contains 12 mg of elemental iron, Routine Given 09/24/2022 9:16 AM EDT 300 mg Given 09/22/2022 9:27 AM EDT 300 mg Given 09/20/2022 9:44 AM EDT 300 mg folic acid (Vitamin B9) tablet 1,000 mcg 1,000 mcg, Oral, DAILY, First dose on [facility] 08/15/22 at 0900, Until Discontinued, Routine Given 08/22/2022 9:11 AM EDT 1,000 mcg Given 08/21/2022 8:14 AM EDT 1,000 mcg Given 08/20/2022 8:48 AM EDT 1,000 mcg folic acid (Vitamin B9) tablet 1,000 mcg 1,000 mcg, Per NG tube, DAILY, First dose (after last modification) on [place] 08/23/22 at 0900, Until Discontinued, Routine Given 09/09/2022 10:06 AM EDT 1,000 mcg Given 09/08/2022 9:57 AM EDT 1,000 mcg Given 09/07/2022 8:42 AM EDT 1,000 mcg folic acid (Vitamin B9) tablet 1,000 mcg 1,000 mcg, Per G Tube, DAILY, First dose (after last modification) on [facility] 09/12/22 at 0900, Until Discontinued, Routine Given [...] (2 times per day), First dose on 08/17/22 at 1100, Until Discontinued, Routine Given 08/23/2022 9:07 PM EDT 5,000 Units Given 08/23/2022 9:44 AM EDT 5,000 Units Given 08/22/2022 9:00 PM EDT 5,000 Units heparin (porcine) 50 units/mL in dextrose 5% 500 mL infusion 0-5,000 Units/hr (0-100 mL/hr), Intravenous, CONTINUOUS, Starting on 08/15/22 at 0045, Until 08/17/22 at 0911, Begin infusion at 850 units [...] dose (after last modification) on Wed09/04/22 at 2000, Until Discontinued, CORRECTION BOLUS [1-4 Units] Correction [...] SCHEDULED, First dose (after last modification) on 09/05/22 at 2000, Until Discontinued, CORRECTION BOLUS [1-6 [...] Per G Tube, DAILY PRN, Starting on 09/16/22 at 0736, Until Wed09/25/22 at 1327, Constipation, [...] potassium phosphate contains 22 mEq potassium New 08/18/2022 5:34 AM EDT 15 mmol 62.5 [...] AM EDT 15 mmol 62.5 mL/hr New 08/19/2022 3:53 AM EDT 15 mmol 62.5 mL/hr potassium phosphate 15 mMol in sodium chloride 0.9% 250 mL infusion 15 mmol, Intravenous, ONCE, 1 dose, On Betty 08/20/22 at 0915, Administer over 4 Hours, Administer [...] PRN, Starting on Wed09/07/22 at 1532, Until 09/20/22 at 1236, Nausea, Vomiting, Routine Given 09/10/2022 [...] restart at 50% of previous rate. Call compressor house operator if goal not achieved at maximum rate. [...] restart at 50% of previous rate. Call compressor house operator if goal not achieved at maximum rate. If SAT is ordered and if patient meets criteria for Spontaneous Awakening Trial, titrate per protocol., Routine New Bag 08/21/2022 4:21 PM EDT 50 mcg/kg/min 21.8 mL/hr propofoL (Diprivan) 10 mg/mL infusion 1 dose, Starting on Wed08/21/22 at 1536, Until Wed08/21/22 at 1621, Ute [place]: [email or web address] override protein powder 2 Scoop, Per NG tube, [...] NIGHTLY, First dose (after last modification) on Wed08/27/22 at 2100, Until Discontinued, Please crush and [...] Until Wed08/31/22 at 1651, Cycle x12hrs from [id number] Administer flushes and check residuals per policy, Which tube feed product? Peptamen AF, Strength: FULL Strength, Initial Rate: (mL/hr): 45, Advance by: (mL): 10, Advance every: Q4H, Goal final rate: (mL/hr): 98, Additional Information (if any): Cycle x12hrs from 3550-4786 New Bag 08/31/2022 5:54 AM EDT 1,176 mLs 98 mL/hr Rate/Dose Verify 08/30/2022 9:00 AM EDT 98 mL/h r New Bag 08/30/2022 6:03 AM EDT 1,176 mLs 98 mL/hr tube feeding diet 1,320 mL, Per NG tube, at 110 mL/hr, Cyclic-(Tube feed), Starting on Wed08/31/22 at 1745, Until Wed09/07/22 at 1445, Cycle x12hrs from 0151-0866 daily Administer flushes and check residuals per policy, Which tube feed product? Peptamen AF, Strength: FULL Strength, Additional Information (if any): Cycle x12hrs from 4125-6003 daily Rate/Dose Verify 09/07/2022 8:39 AM EDT 110 mL/hr New Bag 09/07/2022 6:11 AM EDT 1,320 mLs 110 mL/hr New Bag 09/06/2022 5:43 AM EDT 1,320 mLs 110 mL/hr tube feeding diet 1,260 mL, Per NG tube, at 90 mL/hr, Cyclic-(Tube feed), Starting on 09/07/22 at 1545, Until 09/12/22 at 1236, Cycle x 14 hrs from 7858-2388 daily Administer flushes and check residuals per policy, Which tube feed product? Peptamen AF, Strength: FULL Strength, Additional Information (if any): Cycle x 14 hrs from 7084-3690 daily Restarted 09/08/2022 5:00 PM EDT 90 mL/hr New Bag 09/07/2022 9:26 PM EDT 1,260 mLs 90 mL/hr New Bag 09/07/2022 5:14 PM EDT 1,260 mLs 90 mL/hr tube feeding diet 1,260 mL, Per G Tube, at 90 mL/hr, Cyclic-(Tube feed), Starting on 09/12/22 at 1330, Until Wed09/23/22 at 2056, Cycle x 14 hrs from 7541-7514 daily Administer flushes and check residuals per policy, Which tube feed product? Peptamen AF, Strength: FULL Strength, Additional Information (if any): Cycle x 14 hrs from 9718-3155 daily New Bag 09/17/2022 9:47 PM EDT 1,260 mLs 90 mL/hr New Bag 09/17/2022 7:26 AM EDT 1,260 mLs 90 mL/hr Rate/Dose Verify 09/16/2022 11:30 AM EDT 90 mL/ hr tube feeding diet 1,008 mL, Per G Tube, at 72 mL/hr, Cyclic-(Tube feed), Starting on Wed09/18/22 at 0600, Until Wed09/25/22 at 1327, Cycle x 14 hrs from 8721-6003 daily Administer flushes and check residuals per policy, Which tube feed product? Nutren 1.5, Additional Information (if any): Cycle x 14 hrs from 6214-0222 daily New Bag 09/24/2022 6:16 AM EDT [...] 0919 (Given - Provider: Leann Harding RN) 08 (Given - Provider: Leann Harding RN) enoxaparin [...] 2045 (Given - Provider: Nubia Greenwood, ERI) metoproloL tartrate (Lopressor) tablet 25 mg 25 [...] Leann Harding RN)2046 (Given - Provider: Nubia Greenwood, ERI) 0825 [...] Leann Harding RN) 0916 (Given - Provider: Lenan Harding RN) 0822 (Given - Provider: Leann [...] Montoya, ERI) 0321 (Given - Provider: Sofia Motnoya, ERI)0914 (Given - Provider: Leann Harding RN)1424 [...] at 1327, Cycle x 14 hrs from 1865-3162 daily Administer flushes and check residuals per policy, Which tube feed product? Nutren 1.5, Additional Information (if any): Cycle x 14 hrs from 2861-6846 daily 0600 (New Bag - Provider: Sofia Montoya RN)2009 (New Bag - Provider: Sofia Montoya RN) [...] RN) 0916 (Given - Provider: Leann Harding, RN) 0844 (Given - Provider: Leann Harding, RN) polyethylene glycoL (Miralax) packet 17 g [...] documented as of this encounter Care Teams Activated Sludge Attendant Relationship Specialty Start Date End Date Chris Stanley APRN [address] [place] [address] PCP - General Family Medicine 02/03/19 documented as of this encounter
--- OUTSIDE RECORDS SUMMARY | 2024-05-19 20:38 | XMS_ITS | Encounter Summary ---
Author Organization [facility] [place] [address] Care Team Providers Care Area Mechanic Name Role Phone Chris Stanley VAUGHN Primary Care Provider [phone] Reason for Visit * Auth/Cert (Routine) Specialty Diagnoses / Procedures Referred By Esperanza rodríguez Referred To Contact Diagnoses Shock CARDIOGENIC PULMONARY EDEMA Procedures ER Carlos Melton MD [facility] [place] [address] [facility] Referral ID Status Reason Start Date Expiration Date Visits Re quested Visits Authorized [id number] 1 1 Encounter Details Date Type Department Care Team (Late st Contact Info) Description 09/09/2022 11:15 PM EDT - 09/10/2022 12:18 AM EDT Surgery [place] [address] Audi Russ MD [facility] [place] [address] EGD, UPPER GI ENDOSCOPY (WRVU 2.09) Social [...] Sign Reading Time Taken Comments Blood Pressure 130/59 09/09/2022 8:05 PM EDT Pulse 82 09/09/2022 8:17 PM EDT Temperature 37 ??C (98.6 ??F) 09/09/2022 8:05 PM EDT Respiratory Rate 19 09/09/2022 8:05 PM EDT Oxygen Saturation 96% 09/09/2022 8:05 PM EDT Inhaled Oxygen Concentration - - [...] anemia,??GERD??c/b??esophagitis &??Farrell's esophagus??presenting in transfer from [facility], suspected to be in cardiogenic shock [...] to 4L NC. On arrival to [facility], the patient was given further doses [...] (80 lasix) & dobutamine withconsequent transfer to [facility]. ?? On arrival, the patient was requiring requiring roughly NE 30, dobutamine 2.5, and epinephrine of 5. Hospital Course: Ishan Irving was admitted to the Cardiology Service on 08/14/2022 and transferred to [facility] on 08/30/2022. The following acute and chronic medical issues were identified during this phase of their hospitalization, and managed as summarized below by problem: #Type II NSTEMI #Mixed cardiogenic and distributive shock #Acute HFrEF 2/2 stress cardiomyopathy Following admission to the [facility], a [place]-Isabelle catheter was placed for monitoring of hemodynamic [...] status, she was extubated to [facility] on 08/23, which she tolerated well. #Bipolar Disorder #Hospital Associated Delirium During her [facility] stay, Ishan remained only intermittently responsive, occasionally [...] in a dramatic improvement in psychomotor slowing pysumq47 hours. Her mental status improved significantly over her course and she was discharged fully oriented. She was continued on her home Depakote and Seroquel. #History of Drug-Induced Parkinsonism #Severe Oropharyngeal Dysphagia #Distal Esophageal Dysmotility #GERD complicated by Farrell's Esophagus and Esophagitis Ishan demonstrated severe dysphagia on an MBS obtained by APPAREL SALES ASSOCIATE after extubation. While it was suspected initially [...] who have questions please contact the health patient care technician instructor that requested your imaging first. Abdomen 1 view (Generic) (Exam End: 08/15/2022 8:33 AM) Narrative EXAMINATION: XR ABDOMEN 1 VIEW (GENERIC) CLINICAL HISTORY: 62 yo F w/ shock, confirm NG tube placement TECHNIQUE: Single radiograph of the lower chest and upper abdomen for purposes of enteric tube verification and otherwise nondiagnostic. The lower abdomen is excluded from ymmas-zd-aura. COMPARISON: Abdominal radiograph 08/15/2022 FINDINGS: * An [...] who have questions please contact the health patient care technician instructor that requested your imaging first. Chest One View (Exam End: 08/15/2022 1:14 AM) Narrative EXAMINATION: XR CHEST ONE VIEW CLINICAL HISTORY: confirm [place] placement TECHNIQUE: 1 view of the chest [...] who have questions please contact the health patient care technician instructor that requested your imaging first. Abdomen 1 [...] who have questions please contact the health patient care technician instructor that requested your imaging first. Chest One [...] who have questions please contact the health patient care technician instructor that requested your imaging first. Head wo [...] who have questions please contact the health patient care technician instructor that requested your imaging first. Electronically signed by: Moustapha Correa MD, [facility] ([phone]), at 08/16/2022 11:19 PM XR Abdomen 1 [...] who have questions please contact the health patient care technician instructor that requested your imaging first. Head wo [...] who have questions please contact the health patient care technician instructor that requested your imaging first. Chest One View (Exam End: 08/19/2022 12:30 PM) Narrative EXAMINATION: XR CHEST ONE VIEW CLINICAL HISTORY: febrile, altered, leukocytosis TECHNIQUE: 1 view of the chest ; AP portable 20 degrees upright COMPARISON: Chest radiograph 08/16/2022 FINDINGS: ET tube tip measures 3.0 cm above consuelo. Enteric catheter descends below the diaphragm and below the gkpoh-pf-ggjb. Interval removal of right IJ approach PA [...] who have questions please contact the health patient care technician instructor that requested your imaging first. Brain wo [...] who have questions please contact the health patient care technician instructor that requested your imaging first. Chest for [...] who have questions please contact the health patient care technician instructor that requested your imaging first. Hip w [...] who have questions please contact the health patient care technician instructor that requested your imaging first. Electronically signed by: Aicha Chowdhury MD, [facility] ([phone]), at 08/21/2022 9:[address] Chest w [...] the diaphragm with tip not included the ypqra-yh-ppzn. There is some wall thickening of the [...] the duodenum, not fully included in the pubmf-xp-ohcg. Skeletal structures: No acute osseous findings. No [...] who have questions please contact the health patient care technician instructor that requested your imaging first. Ultrasound in [...] who have questions please contact the health patient care technician instructor that requested your imaging first. Electronically signed by: Viktor Cervantes MD, [facility] ([phone]), at 08/22/2022 12:43 PM XR Pelvis (Generic) [...] who have questions please contact the health patient care technician instructor that requested your imaging first. Electronically signed by: Richard Billings MD, [facility] ([phone]), at 08/22/2022 10:[address] Angiogram Coronary [...] who have questions please contact the health patient care technician instructor that requested your imaging first. Chest wo [...] who have questions please contact the health patient care technician instructor that requested your imaging first. Fluoro Barium [...] There is delayed elevation of the larynx fdc between the vallecula and piriform sinuses. It [...] who have questions please contact the health patient care technician instructor that requested your imaging first. Fluoro Barium [...] who have questions please contact the health patient care technician instructor that requested your imaging first. Abdomen 1 [...] who have questions please contact the health patient care technician instructor that requested your imaging first. Chest One [...] who have questions please contact the health patient care technician instructor that requested your imaging first. Chest One [...] now extending below the diaphragm and included skcdn-hf-ierx. Similar appearance of mild elevation of the right hemidiaphragm with streaky right basilar opacities and some mild patchy opacities at the left lung base. No new focal airspace opacity. No appreciable pleural fluid collection. No pneumothorax. Cardiomediastinal silhouette is unchanged. No evidence of pulmonary edema. No acute osseous abnormality. Impression 1. Reposition enteric tube now extending below the diaphragm and included fyjdt-iv-nldl. 2. Similar appearance of elevated right hemidiaphragm and linear/patchy bibasilar opacities which may represent atelectasis or possibly aspiration. Thank you for letting us participate in the care of this patient. If you are a health care provider and have any questions regarding this report, please contact the number below. For patients who have questions please contact the health patient care technician instructor that requested your imaging first. Abdomen 1 [...] who have questions please contact the health patient care technician instructor that requested your imaging first. G-Tube Placement [...] barrier technique was used throughout. ??A 4 Malaysian glide catheter??was placed??as a??nasoenteric tube??under fluoroscopy with [...] who have questions please contact the health patient care technician instructor that requested your imaging first. Film Library- [...] Ultra-Fine Mini Pen Needle 1 Device by [facility].(Non-Drug; Combo Route) route 3 times daily as needed. 1 Device Quantity: 100 each Refills: 11 lancets 33 gauge [facility] Commonly known as: One Touch Delica 1 [...] Center 11/12/2022 11:30 AM Dixie Tadeo MD [facility] ENDO [facility] Date and Time Provider and Specialty Location Need to be scheduled Chris Stanley APRN , PCP [address] / [facility] [address] Your Inpatient Doctor(s) at [facility]: Jose Mcleod MD Your Primary Care Provider: Chris Stanley APRN [address] / [facility] [address] For questions regarding this document or issues relating to this hospitalization on the Medical Service, please contact your inpatient physician through the [facility] Professional Volleyball Player . Issues afterhours and on weekends will [...] or its attachments. INTERVENTIONAL RADIOLOGY PHONE NUMBERS [phone] ___X___ If you have a NON Low profile feeding tube, call with any questions or concerns. During regular office hours call: [phone]. If it is after regular office hours, weekends or holidays, please call [phone] and ask to speak to the Jet Worker electronics tester for Interventional Radiology. Revised 02/23/19 YOU ARE [...] avoid another low BG in the future. [facility] INTERVENTIONAL RADIOLOGY NURSES NOTE FOR [...] is during regular office hours, please call [phone]. If it is after regular office hours, or on weekends or holidays, please call [phone] and ask to speak to the Jet Worker electronics tester for Interventional Radiology. Revised 02/23/19 Future Appointments and Orders Future Appointments and Orders Future Appointments Provider Department Dept Phone 11/12/2022 11:30 AM Dixie Tadeo MD Endocrinology at [facility] Arrive at: Maintenance Superintendent Area 3A [phone] Future Orders Complete By Expires XR Pelvis and Hip 2 Views Left [44475 Custom] 09/09/2022 (Approximate) 03/11/2023 Process Instructions: Scheduling Instructions: Comments: Questions: Where will study be performed?: [facility] Radiology Portable exam?: Reason for exam and clinical history: s/p perc fixation L FNF @[facility], being referred to arthroplasty team for consideration of KYUNG Clinical information / fam questions for radiologist: Stat read required?: Date of injury if applicable: Requested Time: Referral for Home Tube feeds [[id number] CPT(R)] As directed Process Instructions: Scheduling Instructions: Comments: Ishan Irving [address] [facility] [address] (home) - Telephone Information: Medicaid Yes/No Medicaid Number: [id number] Narrative: Patient has a feeding tube and requires tube feedings and supplies necessary to maintainnutritional support . VENDOR: [employer] Supporting Diagnosis: esophageal stricture Length of [...] admission to Home Health. [address] [facility] [address] Date of : 1960 Inpatient DOCUMENTATION FOR VNA SERVICES (INCLUDING THOSE PATIENTS WITH MEDICARE COVERAGE REQUIRING HOME VNA SERVICES AND/OR HOSPICE SERVICES) PATIENT'S LOCATION: Ishan Irving [address] [facility] [address] (home) Cell: Telephone Information: Cancer Program Consultant's Name: Lee Gasca In discussion with the attending physician, it is certified that this patient is under their care and that they, or a Nurse Practitioner,Clinical Nurse specialist or Physician Diabetes Physician who is working directly with them, had [...] for managing ADL's. HOME HEALTH CARE AGENCY: [facility] [address] [place] [address] Start of care: 24-48 hours post DC [...] Chris Stanley APRN [address] / [facility] [address] All VNA agencies which cover the area of patient's residence have been reviewed, either verbally terrence writing, and patient/family have chosen the home health care agency noted Questions: Disciplines Requested: Physical Therapy Occupational Therapy Nursing Provider Contact Information: Chris Stanley APRN [address] [facility] [address] Discharge References/Attachments: Discharge References/Attachments None documented in [...] or its attachments. INTERVENTIONAL RADIOLOGY PHONE NUMBERS [phone] ___X___ If you have a NON Low profile feeding tube, call with any questions or concerns. During regular office hours call: [phone]. If it is after regular office hours, weekends or holidays, please call [phone] and ask to speak to the Jet Worker electronics tester for Interventional Radiology. Revised 02/23/19 YOU ARE [...] avoid another low BG in the future. [facility] INTERVENTIONAL RADIOLOGY NURSES NOTE FOR [...] is during regular office hours, please call [phone]. If it is after regular office hours, or on weekends or holidays, please call [phone] and ask to speak to the Jet Worker electronics tester for Interventional Radiology. Revised 02/23/19 * Patient [...] Center 11/12/2022 11:30 AM Dixie Tadeo MD [facility] ENDO [facility] Date and Time Provider and Specialty Location Need to be scheduled Chris Stanley APRN , PCP [address] / [facility] [address] Your Inpatient Doctor(s) at [facility]: Jose Mcleod MD Your Primary Care Provider: Chris Stanley APRN [address] [facility] [address] For questions regarding this document or issues relating to this hospitalization on the Medical Service, please contact your inpatient physician through the [facility] Professional Volleyball Player . Issues afterhours and on weekends will [...] spent >30 minutes (Day of Discharge Code 78873) involved in the final examination of the [...] anemia,??GERD??c/b??esophagitis &??Farrell's esophagus??presenting in transfer from [facility], suspected to be in cardiogenic shock [...] BG in the future. Elsie Erickson APRN [facility] Endocrinology Diabetes Management Pager [phone] minutes of 50 minutes was spent [...] ADLs]: Hands on Surveillance [facility]continuous indirect monitoring[facility] near nurses' station [...] fellows interpretation Confirmed by fellow Niurka Rose ([id number]) on 09/07/2022 8:45:34 AM Confirmed by MD [...] anemia,??GERD??c/b??esophagitis &??Farrell's esophagus, who was admitted to [facility] on 08/14/2022??for mixed shock and stress [...] with family 09/25 Team Pager( Coverage 30/11): #[phone] PCP: Chris Stanley, CARDBOARD INSERTER [phone] Attestation: Attending Attestation and Certification I have examined the patient myself and personally reviewed all studies. In addition, I certify thatI am a D-H credentialed attending provider with admitting privileges and that the patient meets or has met medical necessity to require an inpatient IPI level of care meeting a minimum of two midnights or is on the [facility] inpatient only procedure list (status C) due to: the patient has met Inpatient IPI criteria and is awaiting rehabilitation or half-way facility placement with active referrals in process [...] importance to continue to progress athome. Pager: [phone] DANIELA Montes 09/24/2022 Occupational Therapy Rehabilitation Department * Margret Moreno RN - 09/24/2022 1:55 PM EDT Infusion Resource Center Follow up Note: Referral to : NEKATIE Confirmed with Wallace HERRERA that patient will be seen day after discharge Hospital teaching occurred at 10AM 09-24-22 Delivery of IV supplies will occur 09-24-22 @ 5pm . To be delivered to patients room in the hospital. Infusion Resource Center [phone] * Alicia Gillis - 09/24/2022 10:38 AM [...] CPG GOAL OUTCOME EVALUATION: * Elsie Erickson, CARDBOARD INSERTER - 09/23/2022 3:41 PM EDT Follow Up [...] anemia,??GERD??c/b??esophagitis &??Farrell's esophagus??presenting in transfer from [facility], suspected to be in cardiogenic shock [...] 14 hrs Monitoring: Q4 Elsie Erickson APRN [facility] Endocrinology Diabetes Management Pager [phone] minutes of this 50 minute visit [...] fellows interpretation Confirmed by fellow Niurka Rose ([id number]) on 09/07/2022 8:45:34 AM Confirmed by MD [...] anemia,??GERD??c/b??esophagitis &??Farrell's esophagus, who was admitted to [facility] on 08/14/2022??for mixed shock and stress [...] with family 09/25 Team Pager( Coverage 30/11): #[phone] PCP: Chris Stanley APRN [phone] Attestation: Attending Attestation and Certification I have examined the patient myself and personally reviewed all studies. In addition, I certify thatI am a D-H credentialed attending provider with admitting privileges and that the patient meets or has met medical necessity to require an inpatient IPI level of care meeting a minimum of two midnights or is on the [facility] inpatient only procedure list (status C) due to: the patient has met Inpatient IPI criteria and is awaiting rehabilitation or half-way facility placement with active referrals in process Jose Mcleod MD 09/23/2022 * Feroz Portillo, MARKETING DATABASE COORDINATOR - 09/23/2022 1:55 PM EDT Physical Therapy [...] anemia,??GERD??c/b??esophagitis &??Farrell's esophagus??presenting in transfer from [facility], suspected to be in cardiogenic shock [...] attempting to sit. [facility] services when medically ready. [...] TE-F x 2 FEROZ PORTILLO PTA Pager: [phone] Physical Therapy Inpatient Rehabilitation Department * Alicia [...] anemia,??GERD??c/b??esophagitis &??Farrell's esophagus??presenting in transfer from [facility], suspected to be in cardiogenic shock [...] times/wk Total Minutes, Occupational Therapy: 44 (x3 [facility] [phone]) Pager: [phone] DANIELA Montes 09/23/2022 Occupational Therapy Rehabilitation Department [...] fellows interpretation Confirmed by fellow Niurka Rose ([id number]) on 09/07/2022 8:45:34 AM Confirmed by MD [...] anemia,??GERD??c/b??esophagitis &??Farrell's esophagus, who was admitted to [facility] on 08/14/2022??for mixed shock and stress [...] with family 09/25 Team Pager(MD Coverage 30/11): #[phone] PCP: Chris Stanley APRN [phone] Attestation: Attending Attestation and Certification I have examined the patient myself and personally reviewed all studies. In addition, I certify thatI am a D-H credentialed attending provider with admitting privileges and that the patient meets or has met medical necessity to require an inpatient IPI level of care meeting a minimum of two midnights or is on the [facility] inpatient only procedure list (status C) due to: the patient has met Inpatient IPI criteria and is awaiting rehabilitation or half-way facility placement with active referrals in process Jose Mcleod MD 09/22/2022 * Jenn Staples PA - 09/22/2022 7:46 AM EDT ORTHOPAEDIC SURGERY INPATIENT PROGRESS NOTE Patient Name: Ishan Irving Age: 62 y.o. Surgery/Issue: concern for septic arthritis s/p ORIF of the L Hip Fx at [facility] Attending: David Lynne MD Date of surgery: 08/09/2022 SUBJECTIVE / INTERVAL HISTORY: Ms Irving is a 62 y.o. woman with a history of L femoral neck fracture,??bipolar disorder, resolving medication-induced Parkinsonism, insulin- dependent diabetes mellitus,??hx of alcohol use disorder (reported to be in remission for 1.5 years) c/b chronic pancreatitis, iron deficiency anemia,??GE RD??c/b??esophagitis &??Farrell's esophagus, who was admitted to [facility] on 08/14/2022??for mixed shock and stress cardiomyopathy who transferred to Hospital Medicine due to persistent dysphagia. Per primary team patient remains clinically stable. Ms Irving is being seen today by orthopedics for 1 month surveillance check of possible septic arthritis s/p ORIF of Right hip performed by Dr. Lynne at [facility] on 08/09/2022. Today Patient reports thatshe [...] follow up with Orthopedic surgeon at [facility] for continued surveillance of fracture healing. No further follow up with Orthopedics at [facility] is necessary. Orthopedics will sign off at this time. Please page [phone] with any questions or concerns that may arise. - Activity: WBAT LLE - DVT prophylaxis: Per primary - Antibiotics: Per primary - Diet: Per primary Jenn Staples PA-C 09/24/2022 Future Appointments Date Time Provider Department Center 09/25/2022 9:00 AM [facility] IR RECOVERY MH IR [facility] Rad 11/12/2022 11:30 AM Dixie Tadeo MD [facility] * Xochitl Brooks RN - 09/22/2022 5:03 AM EDT OUTCOME EVALUATION NOTE: OUTCOME SUMMARY: Pt A&O X4. VS as charted on RA. Meds given per JUL, crushed through the PEG tube. Tube feed Nutren 1.5 cyclic 9488-7854. Pt c/o of tenderness in her L [...] Problems Diagnosis Date Resolved ??? Shock 08/22/2022 [facility] Active Non-Hospital Problems Diagnosis ??? [...] 1106 09/20/22 0539 09/19/22 2253 09/19/22 2051 09/19/22 1957 POCGLU 221* 211* 166 291* 221* 221* [...] fellows interpretation Confirmed by fellow Niurka Rose ([id number]) on 09/07/2022 8:45:34 AM Confirmed by MD [...] anemia,??GERD??c/b??esophagitis &??Farrell's esophagus, who was admitted to [facility] on 08/14/2022??for mixed shock and stress [...] that they would be able to provide / care forpatient with his son and patient's [...] with family 09/25 Team Pager(MD Coverage 30/11): #[phone] PCP: Chris Stanley APRN [phone] Attestation: Attending Attestation and Certification Please see [...] of two midnights or is on the [facility] inpatient only procedure list (status C) due to: the patient has met Inpatient IPI criteria and is awaiting rehabilitation or half-way facility placement with active referrals in process Jose Mcleod MD 09/21/2022 * Feroz Portillo, MARKETING DATABASE COORDINATOR - 09/21/2022 1:50 PM EDT Physical Therapy [...] anemia,??GERD??c/b??esophagitis &??Farrell's esophagus??presenting in transfer from [facility], suspected to be in cardiogenic shock [...] Billing Code: TE-F x 3 FEROZ PORTILLO MARKETING DATABASE COORDINATOR Pager: [phone] Physical Therapy Inpatient Rehabilitation Department * Wilda Blankenship, RD - 09/21/2022 12:11 PM EDT Nutrition Progress Note Ishan Irving??is a 62 y.o.??female??with h/o bipolar, DM, EtOH, esophagitis, who presented to [facility] 3 days ago after being found unresponsive at home.?Patient found to have likely pneumonia+/- aspiration, newly reduced EF. Reason for Assessment: Tube Feeding, Follow-up Nutrition Recommendations: Suggest Cyclic Nutren 1.5 at 72 ml per hour plus 2 scoops of protein powder 14 hrs from 0921-6640 -pended At goal, this will provide: Nutren [...] p.o. Intake, etc. ?? Po diet per [employer] (recs 09/04 NPO s/p MBS) ?? Continue [...] encounter: 67.7 kg (149 lb 3.2 oz). Almond Body Weight (IBW) (kg): 45.45 Usual Body [...] Malnutrition Diagnosis: Not enough data to assess (Andrea JPEN J Parenteral Enteral Nutr. 2011; 36(3): 273-83) Nutrition to continue to follow up while inpatient THANKS Wilda Blankenship RD Pager #:[phone] * Siobhan Harper LPN - 09/20/2022 11:27 [...] powder was placed. Repositioned independently. * Olamide Stallinsg MD - 09/20/2022 8:14 AM EDT Hospital [...] anemia,??GERD??c/b??esophagitis &??Farrell's esophagus, who was admitted to [facility] on 08/14/2022 (now on Hospital Day [...] barrier technique was used throughout. ??A 4 Malaysian glide catheter??was placed??as a??nasoenteric tube??under fluoroscopy with [...] now extending below the diaphragm and included wjkuy-uv-liup. 2. Similarappearance of elevated right hemidiaphragm and [...] anemia,??GERD??c/b??esophagitis &??Farrell's esophagus, who was admitted to [facility] on 08/14/2022 (now on Hospital Day [...] IPI criteria and is awaiting rehabilitation or half-way facility placement withactive referrals in process Team Pager (MD Coverage 30/11): #[phone] PCP: VAUGHN Whyte MD 09/20/22 * Shirley Thibodeaux RN - 09/20/2022 5:21 AM EDT OUTCOME EVALUATION NOTE: OUTCOME SUMMARY: Pt is A/OX4, VSS on RA. Pt denies SOB,NVD, chest pain. personal care home administrator per JUL. Pt C/O of acid [...] anemia,??GERD??c/b??esophagitis &??Farrell's esophagus, who was admitted to [facility] on 08/14/2022 (now on Hospital Day [...] ??? tube feeding diet 1,008 mL (09/19/22 9993) ??? tube feeding diet Stopped (09/17/22 9725) PRN Meds: ondansetron, polyethylene glycoL, prochlorperazine, ondansetron, [...] Gastrostomy tube placement. ?? Indication for Procedure:Per sIhan Zarate??is a 62 y.o.??female??with history of left [...] barrier technique was used throughout. ??A 4 Malaysian glide catheter??was placed??as a??nasoenteric tube??under fluoroscopy with [...] now extending below the diaphragm and included ysrgm-pf-btri. 2. Similarappearance of elevated right hemidiaphragm and [...] anemia,??GERD??c/b??esophagitis &??Farrell's esophagus, who was admitted to [facility] on 08/14/2022 (now on Hospital Day [...] IPI criteria and is awaiting rehabilitation or half-way facility placement withactive referrals in process Team Pager ( Coverage 30/11): #[phone] PCP: VAUGHN Whyte MD 09/19/22 * Shirley Thibodeaux RN - 09/19/2022 4:47 AM EDT OUTCOME EVALUATION NOTE: OUTCOME SUMMARY: Pt is A/OX4, VSS on RA. Pt denies SOB,NVD, chest pain. personal care home administrator per JUL. Pt C/O of nausea, [...] anemia,??GERD??c/b??esophagitis &??Farrell's esophagus, who was admitted to [facility] on 08/14/2022 (now on Hospital Day [...] Hunt MD Attending, Hospital Medicine Service Pager #[phone] 09/18/2022 24 Hour Events: None Subjective: Doing [...] 168 hours. No results for input(s): PHART, NRZ2RMC, PO2ART, YBL2QQE in the last 168 hours. Micro: No [...] minimumof two midnights or is on the [facility] inpatient only procedure list (status C) due to: the patient has met Inpatient IPI criteria and is awaiting rehabilitation or half-way facility placement withactive referrals in process Alan [...] anemia,??GERD??c/b??esophagitis &??Farrell's esophagus??presenting in transfer from [facility], suspected to be in cardiogenic shock and foundto be in mixed shock with concern for stress cardiomyopathy.??She is s/p ORIF left femoral neck frac ture. ?? Precautions/Special Considerations: aspiration, skin breakdown, falls, LLE WBAT, Dobhoff tube, Mcrae Interval History: 09/18 TENNILLEEON S: yes I can. pt referring to [...] times/wk Total Minutes, Occupational Therapy: 48 (x3 [facility] 1045-11:[phone]) Pager: [phone] DANIELA Montes 09/18/2022 Occupational Therapy Rehabilitation Department * Shirley Thibodeaux RN - 09/18/2022 3:01 AM EDT OUTCOME EVALUATION NOTE: OUTCOME SUMMARY: Pt is A/OX4, VSS on RA. Pt denies SOB,NVD, chest pain. personal care home administrator per JUL. Pt C/O of nausea, [...] Hands on/Eyes on Surveillance [continuous indirect monitoring]: [place], room near nursing station, call marshall within [...] anemia,??GERD??c/b??esophagitis &??Farrell's esophagus, who was admitted to [facility] on 08/14/2022 (now on Hospital Day [...] Hunt MD Attending, Hospital Medicine Service Pager #[phone] 09/17/2022 24 Hour Events: None Subjective: Doing [...] 168 hours. No results for input(s): PHART, YOZ5OUJ, PO2ART, CLJ5LEK in the last 168 hours. Micro: No [...] minimumof two midnights or is on the [facility] inpatient only procedure list (status C) due to: the patient has met Inpatient IPI criteria and is awaiting rehabilitation or half-way facility placement withactive referrals in process Alan Hunt MD * Nancy Ernst, RD - 09/17/2022 12:38 PM EDT Nutrition Progress Note Ishan Irving??is a 62 y.o.??female??with h/o bipolar, DM, EtOH, esophagitis, who presented to [facility] 3 days ago after being found unresponsive at home.?Patient found to have likely pneumonia+/- aspiration, newly reduced EF. Reason for Assessment: Tube Feeding, Follow-up Nutrition Recommendations: Suggest Cyclic Nutren 1.5 at 72 ml per hour plus 2 scoops of protein powder 14 hrs from 6191-1756 -pended At goal, this will provide: Nutren 1.5 Total Volume Per Day: 1012 mL Calories per Day: 1518 Protein per Day: 69 g Free Water mL per Day: 773 % RDI: 101 % Monitor hydration status on above TFs as they are concentrated. Pt may need additional fluids depending on IVFs, med flushes, p.o. Intake, etc. ?? Po diet per [employer] (recs 09/04 NPO s/p MBS) ?? Continue [...] 09/11/221651 -- 6 External Catheter 09/13/22 2344 09/13/222343 [...] of this encounter: 64.4 kg (142 lb). Almond Body Weight (IBW) (kg): 45.45 Usual Body [...] Diagnosis: Not enough data to assess (Virgilio oh al, JPEN J Parenteral Enteral Nutr. 2011; 36(3): 273-83) Nutrition to continue to follow up while inpatient Nancy Ernst RD Pager #:[phone] * Shirley Thiboedaux RN - 09/17/2022 3:42 AM EDT OUTCOME EVALUATION NOTE: OUTCOME SUMMARY: Pt is A/OX4, VSS on RA. Pt denies SOB,NVD, chest pain. personal care home administrator per JUL. Assessment as documented (see [...] anemia,??GERD??c/b??esophagitis &??Farrell's esophagus??presenting in transfer from [facility], suspected to be in cardiogenic shock [...] the current findings, Anticipated Discharge Disposition (PT): half-way facility when medically ready for hospital discharge. [...] TE-F x 3 FEROZ PORTILLO PTA Pager: [phone] Physical Therapy Inpatient Rehabilitation Department * Alan [...] anemia,??GERD??c/b??esophagitis &??Farrell's esophagus, who was admitted to [facility] on 08/14/2022 (now on Hospital Day [...] Hunt MD Attending, Hospital Medicine Service Pager #[phone] 09/16/2022 24 Hour Events: None Subjective: Doing [...] Remarkable for the following: Labs: Recent Labs 09/16/2230709/15/2229909/14/22332 WBC 6.7 5.9 5.5 HGB 10.7* 10.2* 10.1* PLATELET 242 252 246 Recent Labs 09/16/2230709/15/2229909/14/22332 NA 140 140 140 K 4.0 4.0 [...] 168 hours. No results for input(s): PHART, HPY9WMI, PO2ART, PVB5UEO in the last 168 hours. Micro: No [...] minimumof two midnights or is on the [facility] inpatient only procedure list (status C) due to: the patient has met Inpatient IPI criteria and is awaiting rehabilitation or half-way facility placement withactive referrals in process Alan [...] anemia,??GERD??c/b??esophagitis &??Farrell's esophagus??presenting in transfer from [facility], suspected to be in cardiogenic shock [...] 2-3 times/wk Total Minutes, Occupational Therapy: 24 ([address] [phone]) Pager: [phone] DANIELA Montes 09/16/2022 Occupational Therapy Rehabilitation Department * Jane Howe - 09/16/2022 9:54 AM EDTSdave: Clinical Notes [facility] Program for Review 09/16/22 0954 Payment Collector Care Medicaid Date Clinical Application Filed 09/16/22 State Application Filed in Moncho Kirby RN [facility] from [place] [facility] Medicaid Program requested clinical notes for Ishan gabriel level of need. [employer] sent Ishan's most recent MDs, PT/OT/[employer], RNCM and nursing notes. Along with Ishan's [...] anemia,??GERD??c/b??esophagitis &??Farrell's esophagus??presenting in transfer from [facility], suspected to be in cardiogenic shock [...] stable overnight blood sugars Elsie Erickson APRN [facility] Endocrinology Diabetes Management Pager [phone] * Briana Bryant, [employer] - 09/15/2022 8:38 AM EDT Speech Therapy Note Patient Profile: Ishan Irving is a 62 year old female with a medical history notable for??recent L femoral neck fracture,??bipolar disorder, resolving medication-induced Parkinsonism, insulin-dependent diabetes mellitus,??hx of alcohol use disorder (reported to be in remission for 1.5 years) c/b chronic pancreatitis, iron deficiency anemia,??GERD??c/b??esophagitis &??Farrell's esophagus??presenting in transfer from [facility]??on 08/14/2022, suspected to be in cardiogenic shock and found to be in mixed shock with concern for stress cardiomyopathy.??[employer] following for swallow, cognitive tx. MBS completed [...] Pt was seen today for a follow-up [employer] visit. Oral and pharyngeal swallow function appear [...] after Excellent oral care Plan: Therapy Frequency ([employer] Eval): Monitor while hospitalized Pt./family are in agreement with treatment plan. Total Minutes (Speech Language Pathology): 10 Briana Bryant MA, [facility] Pager: [phone] Speech-Language Pathology Inpatient Rehabilitation Medicine * Chau Keith MD - 09/15/2022 6:34 AM EDT Images from the original note were not included. Inpatient Hospital Medicine Progress Note 09/15/2022 Patient Name: ISHAN IRVING Date of : 1960 Age: 62 y.o. Hospital Admit Date: 08/14/2022 Hospital Day: 32 Inpatient Attending: Balaji Mayer MD PCP: Chris Stanley APRN ([phone]) ID: Ishan Irving is a 62 y.o. 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.5 years) c/b chronic pancreatitis, iron deficiency anemia, ??GERD??c/b??esophagitis &??Farrell's esophagus, who was admitted to [facility] on 08/14/2022 (now on Hospital Day [...] LABS: CBC: Recent Labs 09/15/22 0300 09/14/22 03309/13/22 03109/12/22 0325 09/11/22 0405 WBC 5.9 5.5 5.2 5.3 4.5 HGB 10.2* 10.1* 9.2* 9.6* 9.0* HCT 34.4* 33.7* 30.9* 32.4* 30.2* PLATELET 252 246 239 241 219 NEUTROABS 2.78 2.69 2.31 4.22 2.39 Chemistry: Recent Labs 09/15/22 03009/14/22 03309/13/22 1238 09/13/22 0315 09/12/22 1540 NA 140 140 140 141 140 K 4.0 4.1 3.8 3.6 4.0 CL 102 102 101 103 102 CO2 27 28 26 29 24 BUN 11 10 8 8 7* CREATININE 0.44* 0.45* 0.50* 0.52* 0.53* GLUCOSE 121 Not Perf 115 87 103 ANIONGAP 11 10 13 9 14 Recent Labs 09/15/22 03009/14/22 03309/13/22 1238 09/13/22 03109/12/22 1540 09/12/22 0325 09/11/22 0405 CALCIUM 9.2 [...] fellows interpretation Confirmed by fellow Niurka Rose ([id number]) on 09/07/2022 8:45:34 AM Confirmed by MD ALEJANDRA, RICHARD ([id number]) on 09/07/2022 1:55:43 PM QTCCALC 455 09/07/2022 0635 Microbiology: No results found for: URINECULTURE Lab Results Component Value Date/Time BLOODCX No growth at 5 days. 08/19/2022 1720 BLOODCX No growth at 5 days. 08/19/2022 1330 Microbiology Results (Last 30 days) Procedure Component Value Units Date/Time Lower Respiratory Culture Bronchial Alveolar Lavage [[id number]] Collected: 08/21/22 1650 Lab Status: Final result Specimen: Bronchial Alveolar Lavage Updated: 08/23/22 0741 Lower Respiratory Culture Rare mixed bacterial morphotypes suggestive of normal upper respiratory wiley Gram Stain -- Few Neutrophils seen No squamous epithelial cells seen No microorganisms seen. Fungus Culture & Calc Stain Bronchial Alveolar Lavage [[id number]] (Abnormal) Collected: 08/21/221649 Lab Status: Preliminary result Specimen: Bronchial Alveolar Lavage Updated: 08/24/22 1452 AFB culture Bronchial Alveolar Lavage [[id number]] Collected: 08/21/221649 Lab Status: Preliminary result Specimen: Bronchial Alveolar Lavage Updated: 08/24/22 2219 Acid Fast Bacilli Culture -- No Acid Fast Bacilli isolated to date If active tuberculosis is suspected, the patient should be on [employer]. Call Infection Prevention for assistance if needed. Acid Fast Stain No Acid Fast Bacilli seen Fungus culture [[id number]] (Abnormal) Collected: 08/21/221649 Lab Status: Preliminary result Specimen: Bronchial Alveolar Lavage Updated: 08/24/22 145 Fungus Culture Rare Jacky albicans Calcofluor White Stain [[id number]] Collected: 08/21/221649 Lab Status: Final result Specimen: Bronchial Alveolar Lavage Updated: 08/21/222015 Calcofluor Stain Calcofluor White Preparation: Negative Lower Respiratory Culture Bronchial Alveolar Lavage [[id number]] Collected: 08/21/221644 Lab Status: Final result Specimen: Bronchial Alveolar Lavage Updated: 08/23/22 0741 Lower Respiratory Culture Rare mixed bacterial morphotypes suggestive of normal upper respiratory wiley Gram Stain -- Moderate Neutrophils seen No squamous epithelial cells seen No microorganisms seen. Fungus Culture & Calc Stain Bronchial Alveolar Lavage [[id number]] (Abnormal) Collected: 08/21/221644 Lab Status: Preliminary result Specimen: Bronchial Alveolar Lavage Updated: 08/24/22 1453 AFB culture Bronchial Alveolar Lavage [[id number]] Collected: 08/21/221644 Lab Status: Preliminary result Specimen: Bronchial Alveolar Lavage Updated: 08/24/22 2221 Acid Fast Bacilli Culture -- No Acid Fast Bacilli isolated to date If active tuberculosis is suspected, the patient should be on [employer]CA[employer]IONS. Call Infection Prevention for assistance if needed. Acid Fast Stain No Acid Fast Bacilli seen Fungus culture [[id number]] (Abnormal) Collected: 08/21/221644 Lab Status: Preliminary result Specimen: Bronchial Alveolar Lavage Updated: 08/24/22 145 Fungus Culture Rare Jacky albicans Calcofluor White Stain [[id number]] Collected: 08/21/221644 Lab Status: Final result Specimen: Bronchial Alveolar Lavage Updated: 08/21/222016 Calcofluor Stain Calcofluor White Preparation: Negative Blood culture [[id number]] Collected: 08/19/22 1720 Lab Status: Final result Specimen: Blood Updated: 08/24/22 2301 Blood Culture No growth at 5 days. Lower Respiratory Culture Sputum Induced [[id number]] Collected: 08/19/22 1451 Lab Status: Final result Specimen: Sputum Induced Updated: 08/21/22 0948 Lower Respiratory Culture Rare mixed bacterial morphotypes suggestive of normal upper respiratory wiley Gram Stain -- Many Neutrophils seen Few squamous epithelial cells seen No microorganisms seen. Blood culture [[id number]] Collected: 08/19/22 1330 Lab Status: Final result Specimen: Blood Updated: 08/24/22 1501 Blood Culture No growth at 5 days. Legionella Urinary Antigen [[id number]] Collected: 08/18/22 1013 Lab Status: Final result [...] who have questions please contact the health patient care technician instructor that requested your imaging first. Abdomen 1 [...] who have questions please contact the health patient care technician instructor that requested your imaging first. Chest One [...] who have questions please contact the health patient care technician instructor that requested your imaging first. Abdomen 1 [...] who have questions please contact the health patient care technician instructor that requested your imaging first. Chest One [...] who have questions please contact the health patient care technician instructor that requested your imaging first. Head wo [...] who have questions please contact the health patient care technician instructor that requested your imaging first. Electronically signed by: Moustapha Correa MD, [facility] ([phone]), at 08/16/2022 11:19 PM XR Abdomen 1 [...] who have questions please contact the health patient care technician instructor that requested your imaging first. Head wo Contrast (Generic) (Exam End: 08/18/2022 3:14 PM) Impression No acute intracranial process. Thank you for letting us participate in the care of this patient. If you are a health care provider and have any questions regarding this report, please contact the number below. For patients who have questions please contact the health patient care technician instructor that requested your imaging first. Chest One [...] who have questions please contact the health patient care technician instructor that requested your imaging first. Brain wo Contrast (Exam End: 08/19/2022 10:15 PM) Impression No acute infarction, mass or mass effect. Thank you for letting us participate in the care of this patient. If you are a health care provider and have any questions regarding this report, please contact the number below. For patients who have questions please contact the health patient care technician instructor that requested your imaging first. Chest for [...] who have questions please contact the health patient care technician instructor that requested your imaging first. Hip w [...] who have questions please contact the health patient care technician instructor that requested your imaging first. Electronically signed by: Aicha Chowdhury MD, [facility] ([phone]), at 08/21/2022 9:[address] Chest w [...] who have questions please contact the health patient care technician instructor that requested your imaging first. Hip 2-3 Views Left (Exam End: 08/22/2022 12:19 AM) Impression No radiographic evidence of infection. Thank you for letting us participate in the care of this patient. If you are a health care provider and have any questions regarding this report, please contact the number below. For patients who have questions please contact the health patient care technician instructor that requested your imaging first. Electronically signed by: Viktor Cervantes MD, [facility] ([phone]), at 08/22/2022 12:43 PM XR Pelvis (Generic) (Exam End: 08/22/2022 12:19 AM) Impression No radiographic evidence of infection status post left hip ORIF. Thank you for letting us participate in the care of this patient. If you are a health care provider and have any questions regarding this report, please contact the number below. For patients who have questions please contact the health patient care technician instructor that requested your imaging first. Electronically signed by: Richard Billings MD, [facility] ([phone]), at 08/22/2022 10:[address] Angiogram Coronary [...] who have questions please contact the health patient care technician instructor that requested your imaging first. Chest wo Contrast (Generic) (Exam End: 08/27/2022 8:58 AM) Impression Stable findings of multifocal pneumonia. No interval abnormality. Thank you for letting us participate in the care of this patient. If you are a health care provider and have any questions regarding this report, please contact the number below. For patients who have questions please contact the health patient care technician instructor that requested your imaging first. Fluoro Barium [...] who have questions please contact the health patient care technician instructor that requested your imaging first. Fluoro Barium [...] who have questions please contact the health patient care technician instructor that requested your imaging first. Abdomen 1 [...] who have questions please contact the health patient care technician instructor that requested your imaging first. Chest One [...] who have questions please contact the health patient care technician instructor that requested your imaging first. Chest One View (Exam End: 09/05/2022 9:24 AM) Impression 1. Reposition enteric tube now extending below the diaphragm and included dwvep-at-vdua. 2. Similar appearance of elevated right hemidiaphragm and linear/patchy bibasilar opacities which may represent atelectasis or possibly aspiration. Thank you for letting us participate in the care of this patient. If you are a health care provider and have any questions regarding this report, please contact the number below. For patients who have questions please contact the health patient care technician instructor that requested your imaging first. Abdomen 1 [...] who have questions please contact the health patient care technician instructor that requested your imaging first. Medications: Scheduled: [...] RD??c/b??esophagitis &??Farrell's esophagus, who was admitted to [facility] on 08/14/2022 (now on Hospital Day [...] her insurance that lacks rehab coverage requiring buttermaker helper care medicaid. Her application has been submitted. [...] nightly - C/w valproate 300mg q6h - [employer] following, NPO at present - Psychiatry Consult, [...] Medicine PGY1 Medicine Team: Jose Juan, Pager #[phone] Date: 09/15/2022 Associated attestation - Balaji Fraga [...] of two midnights or is on the [facility] inpatient only procedure list (status C) due to: the patient has met Inpatient IPI criteria and is awaiting rehabilitation or half-way facility placement with active referrals in process * Wilda Blankenship, RD - 09/14/2022 3:04 PM EDT Nutrition Progress Note Ishan Irving is a 62 y.o.??female??with h/o bipolar, DM, EtOH, esophagitis, who presented to [facility] 3 days ago after being found unresponsive at home.?Patient found to have likely pneumonia +/- aspiration, newly reduced EF. Reason for Assessment: Tube Feeding, Follow-up Nutrition Recommendations: Continue current Tube feeding Cyclic Peptamen AF at 90ml/hr for 14 hrs from 8064-3525 At goal, this will provide: Peptamen AF Total Volume Per Day: 1260 mL Scoops of Protein: 0 Calories per Day: 1512 Protein per Day: 96 g Free Water mL per Day: 1023 % RDI: 101 % Monitor hydration status on above TFs as they are concentrated. Pt may need additional fluids depending on IVFs, med flushes, p.o. Intake, etc. Po diet per [employer] (recs 09/04 NPO s/p MBS) Continue 50,000 [...] with balloon LUQ (left upper quadrant) feeding 05/05/23 1652 -- 3 PICC Line - Double [...] encounter: 67.2 kg (148 lb 1.6 oz). Almond Body Weight (IBW) (kg): 45.45 Usual Body [...] while inpatient THANKS Wilda Blankenship RD Pager #:[phone] * Feroz Portillo, [facility] - 09/14/2022 2:05 PM EDT Physical Therapy [...] anemia,??GERD??c/b??esophagitis &??Farrell's esophagus??presenting in transfer from [facility], suspected to be in cardiogenic shock and found to be in mixed shock with concern for stress cardiomyopathy. She is s/p ORIF left femoral neck fracture ~ 08/08 at [facility]. Interval History: G tube placed 09/11, tolerating tube feeds Social History: single level [...] the current findings, Anticipated Discharge Disposition (PT): half-way facility when medically ready for hospital discharge. [...] TE-F x 3 FEROZ PORTILLO PTA Pager: [phone] Physical Therapy Inpatient Rehabilitation Department * Alicia Gillis - 09/14/2022 10:46 AM EDT Application submitted via [place] Medicaid portal 09/14/2022 Any further documentation to be given to state upon request. * Chau Keith MD - 09/14/2022 6:06 AM EDT Images from the original note were not included. Inpatient Hospital Medicine Progress Note 09/14/2022 Patient Name: ISHAN IRVING Date of : 1960 Age: 62 y.o. Hospital Admit Date: 08/14/2022 Hospital Day: 31 Inpatient Attending: Chong Chao MD PCP: Chris Stanley APRN ([phone]) ID: Ishan Irving is a 62 y.o. 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.5 years) c/b chronic pancreatitis, iron deficiency anemia, ??GERD??c/b??esophagitis &??Farrell's esophagus, who was admitted to [facility] [place] [facility] on 08/14/2022 (now on Hospital Day [...] fellows interpretation Confirmed by fellow Niurka Rose ([id number]) on 09/07/2022 8:45:34 AM Confirmed by MD [...] Date/Time Lower Respiratory Culture Bronchial Alveolar Lavage [[id number]] Collected: 08/21/221649 Lab Status: Final result Specimen: Bronchial Alveolar Lavage Updated: 08/23/22 0741 Lower Respiratory Culture Rare mixed bacterial morphotypes suggestive of normal upper respiratory wiley Gram Stain -- Few Neutrophils seen No squamous epithelial cells seen No microorganisms seen. Fungus Culture & Calc Stain Bronchial Alveolar Lavage [[id number]] (Abnormal) Collected: 08/21/221649 Lab Status: Preliminary result Specimen: Bronchial Alveolar Lavage Updated: 08/24/22 145 AFB culture Bronchial Alveolar Lavage [[id number]] Collected: 08/21/221649 Lab Status: Preliminary result Specimen: Bronchial Alveolar Lavage Updated: 08/24/22 2219 Acid Fast Bacilli Culture -- No Acid Fast Bacilli isolated to date If active tuberculosis is suspected, the patient should be on [employer] PRECAUTIONS. Call Infection Prevention for assistance if needed. Acid Fast Stain No Acid Fast Bacilli seen Fungus culture [[id number]] (Abnormal) Collected: 08/21/221649 Lab Status: Preliminary result Specimen: Bronchial Alveolar Lavage Updated: 08/24/22 145 Fungus Culture Rare Jacky albicans Calcofluor White Stain [[id number]] Collected: 08/21/221649 Lab Status: Final result Specimen: Bronchial Alveolar Lavage Updated: 08/21/222015 Calcofluor Stain Calcofluor White Preparation: Negative Lower Respiratory Culture Bronchial Alveolar Lavage [[id number]] Collected: 08/21/221644 Lab Status: Final result Specimen: Bronchial Alveolar Lavage Updated: 08/23/22 0741 Lower Respiratory Culture Rare mixed bacterial morphotypes suggestive of normal upper respiratory wiley Gram Stain -- Moderate Neutrophils seen No squamous epithelial cells seen No microorganisms seen. Fungus Culture & Calc Stain Bronchial Alveolar Lavage [[id number]] (Abnormal) Collected: 08/21/221644 Lab Status: Preliminary result Specimen: Bronchial Alveolar Lavage Updated: 08/24/22 145 AFB culture Bronchial Alveolar Lavage [[id number]] Collected: 08/21/221644 Lab Status: Preliminary result Specimen: Bronchial Alveolar Lavage Updated: 08/24/22 222 Acid Fast Bacilli Culture -- No Acid Fast Bacilli isolated to date If active tuberculosis is suspected, the patient should be on [employer] PRECAUTIONS. Call Infection Prevention for assistance if needed. Acid Fast Stain No Acid Fast Bacilli seen Fungus culture [[id number]] (Abnormal) Collected: 08/21/22 1645 Lab Status: Preliminary result Specimen: Bronchial Alveolar Lavage Updated: 08/24/22 1453 Fungus Culture Rare Jacky albicans Calcofluor White Stain [[id number]] Collected: 08/21/22 164 Lab Status: Final result Specimen: Bronchial Alveolar Lavage Updated: 08/21/22 2017 Calcofluor Stain Calcofluor White Preparation: Negative Blood culture [[id number]] Collected: 08/19/22 1720 Lab Status: Final result Specimen: Blood Updated: 08/24/22 2301 Blood Culture No growth at 5 days. Lower Respiratory Culture Sputum Induced [[id number]] Collected: 08/19/22 1451 Lab Status: Final result Specimen: Sputum Induced Updated: 08/21/22 0948 Lower Respiratory Culture Rare mixed bacterial morphotypes suggestive of normal upper respiratory wiley Gram Stain -- Many Neutrophils seen Few squamous epithelial cells seen No microorganisms seen. Blood culture [[id number]] Collected: 08/19/22 1330 Lab Status: Final result Specimen: Blood Updated: 08/24/22 1501 Blood Culture No growth at 5 days. Legionella Urinary Antigen [[id number]] Collected: 08/18/22 1013 Lab Status: Final result [...] Catheter Urine; Other; sepsis, bacteria on UA [[id number]] Collected: 08/15/22 1225 Lab Status: Final result Specimen: Indwelling Catheter Urine Updated: 08/16/22 0804 Urine Culture 1,000-9,000 cfu/ml Insignificant growth COVID-19 PCR [[id number]] Collected: 08/15/22 1150 Lab Status: Final result [...] using the Simplexa COVID-19 Direct Assay by Apiary as authorized by the FDA issued Emergency [...] Department of Pathology and Laboratory Medicine at [facility], certified under the Clinical Laboratory Improvement Amendments [...] fact sheets at the following FDA website: https://www.fda.gov/medical-devices/udzfvdqysdu-fznelad-5979-hmvon-72-folkihqgm- kmw-inqwleygzrdciy-radsjfr-devices/mgdva-xkrccrccysw-cjac SARS-CoV-2 Source PLAN COORDINATOR Swab Lower Respiratory Culture Sputum Induced [[id number]] Collected: 08/15/22 0740 Lab Status: Final result [...] who have questions please contact the health patient care technician instructor that requested your imaging first. Abdomen 1 [...] who have questions please contact the health patient care technician instructor that requested your imaging first. Chest One [...] who have questions please contact the health patient care technician instructor that requested your imaging first. Abdomen 1 [...] who have questions please contact the health patient care technician instructor that requested your imaging first. Chest One [...] who have questions please contact the health patient care technician instructor that requested your imaging first. Head wo [...] who have questions please contact the health patient care technician instructor that requested your imaging first. Electronically signed by: Moustapha Correa MD, [facility] ([phone]), at 08/16/2022 11:19 PM XR Abdomen 1 [...] who have questions please contact the health patient care technician instructor that requested your imaging first. Head wo Contrast (Generic) (Exam End: 08/18/2022 3:14 PM) Impression No acute intracranial process. Thank you for letting us participate in the care of this patient. If you are a health care provider and have any questions regarding this report, please contact the number below. For patients who have questions please contact the health patient care technician instructor that requested your imaging first. Chest One [...] who have questions please contact the health patient care technician instructor that requested your imaging first. Brain wo Contrast (Exam End: 08/19/2022 10:15 PM) Impression No acute infarction, mass or mass effect. Thank you for letting us participate in the care of this patient. If you are a health care provider and have any questions regarding this report, please contact the number below. For patients who have questions please contact the health patient care technician instructor that requested your imaging first. Chest for [...] who have questions please contact the health patient care technician instructor that requested your imaging first. Hip w [...] who have questions please contact the health patient care technician instructor that requested your imaging first. Electronically signed by: Aicha Chowdhury MD, [facility] ([phone]), at 08/21/2022 9:[address] Chest w [...] who have questions please contact the health patient care technician instructor that requested your imaging first. Hip 2-3 Views Left (Exam End: 08/22/2022 12:19 AM) Impression No radiographic evidence of infection. Thank you for letting us participate in the care of this patient. If you are a health care provider and have any questions regarding this report, please contact the number below. For patients who have questions please contact the health patient care technician instructor that requested your imaging first. Electronically signed by: Viktor Cervantes MD, [facility] ([phone]), at 08/22/2022 12:43 PM XR Pelvis (Generic) (Exam End: 08/22/2022 12:19 AM) Impression No radiographic evidence of infection status post left hip ORIF. Thank you for letting us participate in the care of this patient. If you are a health care provider and have any questions regarding this report, please contact the number below. For patients who have questions please contact the health patient care technician instructor that requested your imaging first. Electronically signed by: Richard Billings MD, [facility] ([phone]), at 08/22/2022 10:[address] Angiogram Coronary [...] who have questions please contact the health patient care technician instructor that requested your imaging first. Chest wo Contrast (Generic) (Exam End: 08/27/2022 8:58 AM) Impression Stable findings of multifocal pneumonia. No interval abnormality. Thank you for letting us participate in the care of this patient. If you are a health care provider and have any questions regarding this report, please contact the number below. For patients who have questions please contact the health patient care technician instructor that requested your imaging first. Fluoro Barium [...] who have questions please contact the health patient care technician instructor that requested your imaging first. Fluoro Barium [...] who have questions please contact the health patient care technician instructor that requested your imaging first. Abdomen 1 [...] who have questions please contact the health patient care technician instructor that requested your imaging first. Chest One [...] who have questions please contact the health patient care technician instructor that requested your imaging first. Chest One View (Exam End: 09/05/2022 9:24 AM) Impression 1. Reposition enteric tube now extending below the diaphragm and included [id number]. 2. Similar appearance of elevated right hemidiaphragm and linear/patchy bibasilar opacities which may represent atelectasis or possibly aspiration. Thank you for letting us participate in the care of this patient. If you are a health care provider and have any questions regarding this report, please contact the number below. For patients who have questions please contact the health patient care technician instructor that requested your imaging first. Abdomen 1 [...] who have questions please contact the health patient care technician instructor that requested your imaging first. Medications: Scheduled: [...] RD??c/b??esophagitis &??Farrell's esophagus, who was admitted to [facility] on 08/14/2022 (now on Hospital Day [...] her insurance that lacks rehab coverage requiring buttermaker helper care medicaid. Her application has been submitted. [...] nightly - C/w valproate 300mg q6h - [employer] following, NPO at present - Psychiatry Consult, [...] Medicine PGY1 Medicine Team: Jose Juan, Pager #[phone] Date: 09/14/2022 Associated attestation - Balaji Fraga [...] IPI criteria and is awaiting rehabilitation or half-way facility placement with active referrals in process * Chau Keith MD - 09/13/2022 6:09 AM EDT Images from the original note were not included. Inpatient Hospital Medicine Progress Note 09/13/2022 Patient Name: ISHAN IRVING Date of : 1960 Age: 62 y.o. Hospital Admit Date: 08/14/2022 Hospital Day: 30 Inpatient Attending: Chong Chao MD PCP: Chris Stanley APRN ([phone]) ID: Ishan Irving is a 62 y.o. 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.5 years) c/b chronic pancreatitis, iron deficiency anemia, ??GERD??c/b??esophagitis &??Farrell's esophagus, who was admitted to [facility] [place] [facility] on 08/14/2022 (now on Hospital Day [...] fellows interpretation Confirmed by fellow Niurka Rose ([id number]) on 09/07/2022 8:45:34 AM Confirmed by MD [...] Date/Time Lower Respiratory Culture Bronchial Alveolar Lavage [[id number]] Collected: 08/21/221649 Lab Status: Final result Specimen: Bronchial Alveolar Lavage Updated: 08/23/22 0741 Lower Respiratory Culture Rare mixed bacterial morphotypes suggestive of normal upper respiratory wiley Gram Stain -- Few Neutrophils seen No squamous epithelial cells seen No microorganisms seen. Fungus Culture & Calc Stain Bronchial Alveolar Lavage [[id number]] (Abnormal) Collected: 08/21/221649 Lab Status: Preliminary result Specimen: Bronchial Alveolar Lavage Updated: 08/24/22 145 AFB culture Bronchial Alveolar Lavage [[id number]] Collected: 08/21/221649 Lab Status: Preliminary result Specimen: Bronchial Alveolar Lavage Updated: 08/24/222218 Acid Fast Bacilli Culture -- No Acid Fast Bacilli isolated to date If active tuberculosis is suspected, the patient should be on [employer] PRECAUTIONS. Call Infection Prevention for assistance if needed. Acid Fast Stain No Acid Fast Bacilli seen Fungus culture [[id number]] (Abnormal) Collected: 08/21/221649 Lab Status: Preliminary result Specimen: Bronchial Alveolar Lavage Updated: 08/24/221451 Fungus Culture Rare Jacky albicans Calcofluor White Stain [[id number]] Collected: 08/21/221649 Lab Status: Final result Specimen: Bronchial Alveolar Lavage Updated: 08/21/222015 Calcofluor Stain Calcofluor White Preparation: Negative Lower Respiratory Culture Bronchial Alveolar Lavage [[id number]] Collected: 08/21/221644 Lab Status: Final result Specimen: Bronchial Alveolar Lavage Updated: 08/23/22 0741 Lower Respiratory Culture Rare mixed bacterial morphotypes suggestive of normal upper respiratory wiley Gram Stain -- Moderate Neutrophils seen No squamous epithelial cells seen No microorganisms seen. Fungus Culture & Calc Stain Bronchial Alveolar Lavage [[id number]] (Abnormal) Collected: 08/21/221644 Lab Status: Preliminary result Specimen: Bronchial Alveolar Lavage Updated: 08/24/22 1453 AFB culture Bronchial Alveolar Lavage [[id number]] Collected: 08/21/221644 Lab Status: Preliminary result Specimen: Bronchial Alveolar Lavage Updated: 08/24/22 222 Acid Fast Bacilli Culture -- No Acid Fast Bacilli isolated to date If active tuberculosis is suspected, the patient should be on [employer] PRECAUTIONS. Call Infection Prevention for assistance if needed. Acid Fast Stain No Acid Fast Bacilli seen Fungus culture [[id number]] (Abnormal) Collected: 08/21/221644 Lab Status: Preliminary result Specimen: Bronchial Alveolar Lavage Updated: 08/24/22 145 Fungus Culture Rare Jacky albicans Calcofluor White Stain [[id number]] Collected: 08/21/221644 Lab Status: Final result Specimen: Bronchial Alveolar Lavage Updated: 08/21/22 2017 Calcofluor Stain Calcofluor White Preparation: Negative Blood culture [[id number]] Collected: 08/19/22 1720 Lab Status: Final result Specimen: Blood Updated: 08/24/22 2301 Blood Culture No growth at 5 days. Lower Respiratory Culture Sputum Induced [[id number]] Collected: 08/19/22 1451 Lab Status: Final result Specimen: Sputum Induced Updated: 08/21/22 0948 Lower Respiratory Culture Rare mixed bacterial morphotypes suggestive of normal upper respiratory wiley Gram Stain -- Many Neutrophils seen Few squamous epithelial cells seen No microorganisms seen. Blood culture [[id number]] Collected: 08/19/22 1330 Lab Status: Final result Specimen: Blood Updated: 08/24/22 1501 Blood Culture No growth at 5 days. Legionella Urinary Antigen [[id number]] Collected: 08/18/22 1013 Lab Status: Final result [...] Catheter Urine; Other; sepsis, bacteria on UA [[id number]] Collected: 08/15/22 1225 Lab Status: Final result Specimen: Indwelling Catheter Urine Updated: 08/16/22 0804 Urine Culture 1,000-9,000 cfu/ml Insignificant growth COVID-19 PCR [[id number]] Collected: 08/15/22 1150 Lab Status: Final result [...] using the Simplexa COVID-19 Direct Assay by Apiary as authorized by the FDA issued Emergency [...] Department of Pathology and Laboratory Medicine at [facility], certified under the Clinical Laboratory Improvement Amendments [...] fact sheets at the following FDA website: https://www.fda.gov/medical-devices/tchvvlcfpmj-kopmecu-9413-ezieg-69-ljoptshds- zls-zvlqivpygfzcji-cfqlfry-devices/huybr-fdsxmngknww-hpkv SARS-CoV-2 Source PLAN COORDINATOR Swab Lower Respiratory Culture Sputum Induced [[id number]] Collected: 08/15/22 0740 Lab Status: Final result Specimen: Sputum Induced Updated: 08/17/22 1015 Lower Respiratory Culture Rare normal upper respiratory wiley Gram Stain -- Many Neutrophils Few squamous epithelial cells Rare mixed bacterial morphotypes suggestive of normal upper respiratory wiley Blood culture [[id number]] Collected: 08/15/22 0110 Lab Status: Final result Specimen: Blood Updated: 08/20/22 0701 Blood Culture No growth at 5 days. MRSA PCR Screen ([facility]/CGP/APD/[facility]H) [[id number]] Collected: 08/15/22 0050 Lab Status: Final result Specimen: Nasopharyngeal Swab Updated: 08/17/22 1419 MRSA Result Negative MRSA Interp -- Methicillin-resistant Staphylococcus aureus (MRSA) is NOT DETECTED The MRSA target DNA sequences (mec and SCC) were not detected within the acceptable ranges using the Xpert MRSA NxG on the GeneXpert Dx System ([employer]). This suggests the absence of MRSA in the patient specimen submitted for testing. This test is cleared by the U.S. Food and Drug Administration for clinical use and its performance characteristics have been verified by the [facility] at [facility]. This result does not rule out the presence of any other organisms. Rare false negative results may occur if MRSA is present at low concentrations with much higher concentrations of other organisms including MRSE or S. aureus with an empty SCC cassette. Comment: [VERIFIED DATE]08.17.22 Verified By:Shannon Smiley (Electronic Signature) Blood culture [[id number]] Collected: 08/14/22 9354 Lab Status: Final result Specimen: Blood Updated: [...] who have questions please contact the health patient care technician instructor that requested your imaging first. Abdomen 1 [...] who have questions please contact the health patient care technician instructor that requested your imaging first. Chest One [...] who have questions please contact the health patient care technician instructor that requested your imaging first. Abdomen 1 [...] who have questions please contact the health patient care technician instructor that requested your imaging first. Chest One [...] who have questions please contact the health patient care technician instructor that requested your imaging first. Head wo [...] who have questions please contact the health patient care technician instructor that requested your imaging first. Electronically signed by: Moustapha Correa MD, [facility] ([phone]), at 08/16/2022 11:19 PM XR Abdomen 1 [...] who have questions please contact the health patient care technician instructor that requested your imaging first. Head wo Contrast (Generic) (Exam End: 08/18/2022 3:14 PM) Impression No acute intracranial process. Thank you for letting us participate in the care of this patient. If you are a health care provider and have any questions regarding this report, please contact the number below. For patients who have questions please contact the health patient care technician instructor that requested your imaging first. Chest One [...] who have questions please contact the health patient care technician instructor that requested your imaging first. Brain wo Contrast (Exam End: 08/19/2022 10:15 PM) Impression No acute infarction, mass or mass effect. Thank you for letting us participate in the care of this patient. If you are a health care provider and have any questions regarding this report, please contact the number below. For patients who have questions please contact the health patient care technician instructor that requested your imaging first. Chest for [...] who have questions please contact the health patient care technician instructor that requested your imaging first. Hip w [...] who have questions please contact the health patient care technician instructor that requested your imaging first. Electronically signed by: Aicha Chowdhury MD, [facility] ([phone]), at 08/21/2022 9:[address] Chest w [...] who have questions please contact the health patient care technician instructor that requested your imaging first. Hip 2-3 Views Left (Exam End: 08/22/2022 12:19 AM) Impression No radiographic evidence of infection. Thank you for letting us participate in the care of this patient. If you are a health care provider and have any questions regarding this report, please contact the number below. For patients who have questions please contact the health patient care technician instructor that requested your imaging first. Electronically signed by: Viktor Cervantes MD, [facility] ([phone]), at 08/22/2022 12:43 PM XR Pelvis (Generic) (Exam End: 08/22/2022 12:19 AM) Impression No radiographic evidence of infection status post left hip ORIF. Thank you for letting us participate in the care of this patient. If you are a health care provider and have any questions regarding this report, please contact the number below. For patients who have questions please contact the health patient care technician instructor that requested your imaging first. Electronically signed by: Richard Billings MD, [facility] ([phone]), at 08/22/2022 10:[address] Angiogram Coronary [...] who have questions please contact the health patient care technician instructor that requested your imaging first. Chest wo Contrast (Generic) (Exam End: 08/27/2022 8:58 AM) Impression Stable findings of multifocal pneumonia. No interval abnormality. Thank you for letting us participate in the care of this patient. If you are a health care provider and have any questions regarding this report, please contact the number below. For patients who have questions please contact the health patient care technician instructor that requested your imaging first. Fluoro Barium [...] who have questions please contact the health patient care technician instructor that requested your imaging first. Fluoro Barium [...] who have questions please contact the health patient care technician instructor that requested your imaging first. Abdomen 1 [...] who have questions please contact the health patient care technician instructor that requested your imaging first. Chest One [...] who have questions please contact the health patient care technician instructor that requested your imaging first. Chest One View (Exam End: 09/05/2022 9:24 AM) Impression 1. Reposition enteric tube now extending below the diaphragm and included [id number]. 2. Similar appearance of elevated right hemidiaphragm and linear/patchy bibasilar opacities which may represent atelectasis or possibly aspiration. Thank you for letting us participate in the care of this patient. If you are a health care provider and have any questions regarding this report, please contact the number below. For patients who have questions please contact the health patient care technician instructor that requested your imaging first. Abdomen 1 [...] who have questions please contact the health patient care technician instructor that requested your imaging first. Medications: Scheduled: [...] RD??c/b??esophagitis &??Farrell's esophagus, who was admitted to [facility] on 08/14/2022 (now on Hospital Day [...] her insurance that lacks rehab coverage requiring group home care medicaid. Her application has been submitted. [...] nightly - C/w valproate 300mg q6h - [employer] following, NPO at present - Psychiatry Consult, [...] Medicine PGY1 Medicine Team: Jose Juan, Pager #[phone] Date: 09/13/2022 Associated attestation - Chong Chao MD - 09/13/2022 7:55 PM EDT Hospital Medicine Service Attending Documentation I certify that I am a [facility] credentialed attending provider with admitting privileges and that the patient meets or has met medical necessity to require an inpatient IPI level of care meeting a minimumof two midnights or is on the [place] [facility] [...] will sign off at this time. Page [phone] with questions/concerns Rayray Platt DO * Jigar Streeter MD - 09/12/2022 7:29 AM EDT Images from the original note were not included. Inpatient Hospital Medicine Progress Note 09/12/2022 Patient Name: ISHAN IRVING Date of : 1960 Age: 62 y.o. Hospital Admit Date: 08/14/2022 Hospital Day: 29 Inpatient Attending: Molina Flores MD PCP: Chris Stanley APRN ([phone]) ID: Ishan Irving is a 62 y.o. 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.5 years) c/b chronic pancreatitis, iron deficiency anemia, ??GERD??c/b??esophagitis &??Farrell's esophagus, who was admitted to [facility] on 08/14/2022 (now on Hospital Day [...] 0354 64.5 kg (142 lb 1.6 oz) 05/02/23 06 64.8 kg (142 lb 14.4 oz) 09/07/22 [...] dry, no rashes LABS: CBC: Recent Labs 09/12/2232409/11/2240409/10/22 0920 09/09/22 0400 09/08/22 0200 WBC 5.3 4.5 5.7 6.9 6.9 HGB 9.6* 9.0* 9.2* 9.8* 9.8* HCT 32.4* 30.2* 31.4* 33.4* 32.6* PLATELET 241 219 229 264 300 NEUTROABS 4.22 2.39 3.39 3.43 3.42 Chemistry: Recent Labs 09/12/2232409/11/2240409/10/22 0609/09/22 0400 09/08/22 0200 NA 139 143 140 140 142 K 4.5 3.4* 3.7 4.3 4.6 CL 104 107 105 102 103 CO2 26 28 27 28 30 BUN 8 6* 11 24* 25* CREATININE 0.49* 0.44* 0.48* 0.56* 0.52* GLUCOSE 123 195 158 139 142 ANIONGAP 9 8 8 10 9 Recent Labs 09/12/2232409/11/2240409/10/22 0609/09/22 0400 09/08/22 0200 09/07/22 0030 CALCIUM 9.2 [...] fellows interpretation Confirmed by fellow Niurka Rose ([id number]) on 09/07/2022 8:45:34 AM Confirmed by MD [...] Date/Time Lower Respiratory Culture Bronchial Alveolar Lavage [[id number]] Collected: 08/21/221649 Lab Status: Final result Specimen: Bronchial Alveolar Lavage Updated: 08/23/22 0741 Lower Respiratory Culture Rare mixed bacterial morphotypes suggestive of normal upper respiratory wiley Gram Stain -- Few Neutrophils seen No squamous epithelial cells seen No microorganisms seen. Fungus Culture & Calc Stain Bronchial Alveolar Lavage [[id number]] (Abnormal) Collected: 08/21/221649 Lab Status: Preliminary result Specimen: Bronchial Alveolar Lavage Updated: 08/24/22 1452 AFB culture Bronchial Alveolar Lavage [[id number]] Collected: 08/21/221649 Lab Status: Preliminary result Specimen: Bronchial Alveolar Lavage Updated: 08/24/22 2219 Acid Fast Bacilli Culture -- No Acid Fast Bacilli isolated to date If active tuberculosis is suspected, the patient should be on AIRBORNE PRECAUTIONS. Call Infection Prevention for assistance if needed. Acid Fast Stain No Acid Fast Bacilli seen Fungus culture [[id number]] (Abnormal) Collected: 08/21/221649 Lab Status: Preliminary result Specimen: Bronchial Alveolar Lavage Updated: 08/24/22 145 Fungus Culture Rare Jacky albicans Calcofluor White Stain [[id number]] Collected: 08/21/221649 Lab Status: Final result Specimen: Bronchial Alveolar Lavage Updated: 08/21/222015 Calcofluor Stain Calcofluor White Preparation: Negative Lower Respiratory Culture Bronchial Alveolar Lavage [[id number]] Collected: 08/21/221644 Lab Status: Final result Specimen: Bronchial Alveolar Lavage Updated: 08/23/22 0741 Lower Respiratory Culture Rare mixed bacterial morphotypes suggestive of normal upper respiratory wiley Gram Stain -- Moderate Neutrophils seen No squamous epithelial cells seen No microorganisms seen. Fungus Culture & Calc Stain Bronchial Alveolar Lavage [[id number]] (Abnormal) Collected: 08/21/221644 Lab Status: Preliminary result Specimen: Bronchial Alveolar Lavage Updated: 08/24/22 1453 AFB culture Bronchial Alveolar Lavage [[id number]] Collected: 08/21/221644 Lab Status: Preliminary result Specimen: Bronchial Alveolar Lavage Updated: 08/24/22 222 Acid Fast Bacilli Culture -- No Acid Fast Bacilli isolated to date If active tuberculosis is suspected, the patient should be on AIRBORNE PRECAUTIONS. Call Infection Prevention for assistance if needed. Acid Fast Stain No Acid Fast Bacilli seen Fungus culture [[id number]] (Abnormal) Collected: 04/14/23 1645 Lab Status: Preliminary result Specimen: Bronchial Alveolar Lavage Updated: 08/24/22 1453 Fungus Culture Rare Jacky albicans Calcofluor White Stain [[id number]] Collected: 08/21/22 1645 Lab Status: Final result Specimen: Bronchial Alveolar Lavage Updated: 08/21/22 2017 Calcofluor Stain Calcofluor White Preparation: Negative Blood culture [[id number]] Collected: 08/19/22 1720 Lab Status: Final result Specimen: Blood Updated: 08/24/22 2301 Blood Culture No growth at 5 days. Lower Respiratory Culture Sputum Induced [[id number]] Collected: 08/19/22 1451 Lab Status: Final result Specimen: Sputum Induced Updated: 08/21/22 0948 Lower Respiratory Culture Rare mixed bacterial morphotypes suggestive of normal upper respiratory wiley Gram Stain -- Many Neutrophils seen Few squamous epithelial cells seen No microorganisms seen. Blood culture [[id number]] Collected: 08/19/22 1330 Lab Status: Final result Specimen: Blood Updated: 08/24/22 1501 Blood Culture No growth at 5 days. Legionella Urinary Antigen [[id number]] Collected: 08/18/22 1013 Lab Status: Final result [...] Catheter Urine; Other; sepsis, bacteria on UA [[id number]] Collected: 08/15/22 1225 Lab Status: Final result Specimen: Indwelling Catheter Urine Updated: 08/16/22 0804 Urine Culture 1,000-9,000 cfu/ml Insignificant growth COVID-19 PCR [[id number]] Collected: 08/15/22 1150 Lab Status: Final result [...] using the Simplexa COVID-19 Direct Assay by Apiary as authorized by the FDA issued Emergency [...] Department of Pathology and Laboratory Medicine at [facility], certified under the Clinical Laboratory Improvement Amendments [...] fact sheets at the following FDA website: https://www.fda.gov/medical-devices/nwhoqaadvfa-jwslcva-5794-huomr-97-pzsnbuuzl- weu-dptnoriixzdmvw-yiinwof-devices/hfuys-qvqrcjuyubv-omrh SARS-CoV-2 Source PLAN COORDINATOR Swab Lower Respiratory Culture Sputum Induced [[id number]] Collected: 08/15/22 0740 Lab Status: Final result Specimen: Sputum Induced Updated: 08/17/22 1015 Lower Respiratory Culture Rare normal upper respiratory wiley Gram Stain -- Many Neutrophils Few squamous epithelial cells Rare mixed bacterial morphotypes suggestive of normal upper respiratory wiley Blood culture [[id number]] Collected: 08/15/22 0110 Lab Status: Final result Specimen: Blood Updated: 08/20/22 07 Blood Culture No growth at 5 days. MRSA PCR Screen ([facility]/CGP/APD/NLH) [[id number]] Collected: 08/15/22 0050 Lab Status: Final result Specimen: Nasopharyngeal Swab Updated: 08/17/22 1419 MRSA Result Negative MRSA Interp -- Methicillin-resistant Staphylococcus aureus (MRSA) is NOT DETECTED The MRSA target DNA sequences (mec and SCC) were not detected within the acceptable ranges using the Xpert MRSA NxG on the GeneXpert Dx System ([employer]). This suggests the absence of MRSA in the patient specimen submitted for testing. This test is cleared by the U.S. Food and Drug Administration for clinical use and its performance characteristics have been verified by the [facility] at [facility]. This result does not rule out the presence of any other organisms. Rare false negative results may occur if MRSA is present at low concentrations with much higher concentrations of other organisms including MRSE or S. aureus with an empty SCC cassette. Comment: [VERIFIED DATE]08.17.22 Verified By:Shannon Smiley (Electronic Signature) Blood culture [[id number]] Collected: 08/14/22 2355 Lab Status: Final result [...] who have questions please contact the health patient care technician instructor that requested your imaging first. Abdomen 1 [...] who have questions please contact the health patient care technician instructor that requested your imaging first. Chest One [...] who have questions please contact the health patient care technician instructor that requested your imaging first. Abdomen 1 [...] who have questions please contact the health patient care technician instructor that requested your imaging first. Chest One [...] who have questions please contact the health patient care technician instructor that requested your imaging first. Head wo [...] who have questions please contact the health patient care technician instructor that requested your imaging first. Electronically signed by: Moustapha Correa MD, [facility] ([phone]), at 08/16/2022 11:19 PM XR Abdomen 1 [...] who have questions please contact the health patient care technician instructor that requested your imaging first. Head wo Contrast (Generic) (Exam End: 08/18/2022 3:14 PM) Impression No acute intracranial process. Thank you for letting us participate in the care of this patient. If you are a health care provider and have any questions regarding this report, please contact the number below. For patients who have questions please contact the health patient care technician instructor that requested your imaging first. Chest One [...] who have questions please contact the health patient care technician instructor that requested your imaging first. Brain wo Contrast (Exam End: 08/19/2022 10:15 PM) Impression No acute infarction, mass or mass effect. Thank you for letting us participate in the care of this patient. If you are a health care provider and have any questions regarding this report, please contact the number below. For patients who have questions please contact the health patient care technician instructor that requested your imaging first. Chest for [...] who have questions please contact the health patient care technician instructor that requested your imaging first. Hip w [...] who have questions please contact the health patient care technician instructor that requested your imaging first. Electronically signed by: Aicha Chowdhury MD, [facility] ([phone]), at 08/21/2022 9:[address] Chest w [...] who have questions please contact the health patient care technician instructor that requested your imaging first. Hip 2-3 Views Left (Exam End: 08/22/2022 12:19 AM) Impression No radiographic evidence of infection. Thank you for letting us participate in the care of this patient. If you are a health care provider and have any questions regarding this report, please contact the number below. For patients who have questions please contact the health patient care technician instructor that requested your imaging first. Electronically signed by: Viktor Cervantes MD, [facility] ([phone]), at 08/22/2022 12:43 PM XR Pelvis (Generic) (Exam End: 08/22/2022 12:19 AM) Impression No radiographic evidence of infection status post left hip ORIF. Thank you for letting us participate in the care of this patient. If you are a health care provider and have any questions regarding this report, please contact the number below. For patients who have questions please contact the health patient care technician instructor that requested your imaging first. Electronically signed by: Richard Billings MD, [facility] ([phone]), at 08/22/2022 10:[address] Angiogram Coronary [...] who have questions please contact the health patient care technician instructor that requested your imaging first. Chest wo Contrast (Generic) (Exam End: 08/27/2022 8:58 AM) Impression Stable findings of multifocal pneumonia. No interval abnormality. Thank you for letting us participate in the care of this patient. If you are a health care provider and have any questions regarding this report, please contact the number below. For patients who have questions please contact the health patient care technician instructor that requested your imaging first. Fluoro Barium [...] who have questions please contact the health patient care technician instructor that requested your imaging first. Fluoro Barium [...] who have questions please contact the health patient care technician instructor that requested your imaging first. Abdomen 1 [...] who have questions please contact the health patient care technician instructor that requested your imaging first. Chest One [...] who have questions please contact the health patient care technician instructor that requested your imaging first. Chest One View (Exam End: 09/05/2022 9:24 AM) Impression 1. Reposition enteric tube now extending below the diaphragm and included adcqd-ln-kfal. 2. Similar appearance of elevated right hemidiaphragm and linear/patchy bibasilar opacities which may represent atelectasis or possibly aspiration. Thank you for letting us participate in the care of this patient. If you are a health care provider and have any questions regarding this report, please contact the number below. For patients who have questions please contact the health patient care technician instructor that requested your imaging first. Abdomen 1 [...] who have questions please contact the health patient care technician instructor that requested your imaging first. Medications: Scheduled: [...] RD??c/b??esophagitis &??Farrell's esophagus, who was admitted to [facility] on 08/14/2022 (now on Hospital Day [...] her insurance that lacks rehab coverage requiring buttermaker helper care medicaid. Her application has been submitted. Today's plan: - restart tube feeds via G tube - transition medications to G tube - adjust insulin regimen as appropriate and monitor for refeeding syndrome # Bipolar Disorder - Continue Seroquel 100mg nightly - C/w valproate 300mg q6h - [employer]ES [employer]IATE following, NPO at present - Psychiatry Consult, [...] Medicine PGY2 Medicine Team: Jose Juan, Pager #[phone] Date: 09/12/2022 Associated attestation - Chong Chao MD - 09/12/2022 9:10 PM EDT Hospital Medicine Service Attending Documentation I certify that I am a D-H credentialed attending provider with admitting privileges and that the patient meets or has met medical necessity to require an inpatient IPI level of care meeting a minimumof two midnights or is on the [facility] inpatient only procedure list (status C) [...] DM, EtOH, esophagitis, who presented to [facility] 3 days ago after being found unresponsive at home.?Patient found to have likely pneumonia+/- aspiration, newly reduced EF. Reason for intervention: Follow up Nutrition Recommendations: ?? S/p PEG placement, resume current TF: Cyclic Peptamen AF??at 90ml/hr for 14 hrs from [id number] (pended). At goal, this will provide: Peptamen [...] p.o. Intake, etc. ?? Po diet per [employer]OCIATE (recs 09/04 NPO s/p MBS) ?? Continue 50,000 units vitamin D weekly; 1000 mcg folic acid and 100 mg thiamine daily. ?? Off unit in IR for PEG placement at time of my visit. THANKS Wilda Blankenship RD Pager #:[phone] * Mary Penny RN - 09/11/2022 1:35 PM EDT Called to see Ishan Johanny Irving who is a 62 y.o., female by nursing blacksmith supervisor RM at the requestof charge nurse on unit. Referring provider: Chau Keith MD Date of Referral: 09/10 (unable to get done 09/10 therefore done 09/11) for a small bore insertion team consult. Admission Date/Time: 08/14/22 Hospital Day:28 Admitting Diagnosis:shock, multifocal pneumonia, and a newly reduced LVEF. Ordering Physician: Chau Keith MD Indication:Tube feeding, medical dir Weighted or Not Weighted: weighted Ordered destination: [...] Alicia Gillis T - 09/11/2022 11:10 AM EDTSummary: Snf Care [place] Snf Care application (Form 202LTC) completed on 09/11/2022 Authorized Brake Press Operator Form (Form 139REP) completed and designated to Antonio Irving and Alicia Gillis Copy made of all application documents. Statement of Understand for Choices for Care Snf Medicaid provided to patient/family. Submitted all documents to [place] DCF/ESD Application and Document Processing Center via [place]'s [employer] on 09/11/2022 for submission and processing. Anticipated Timeline: ??? LTC application should be acknowledged by [place]'s Department of [place] Health Access and Disabilities, Aging and Independent Living ([facility]) within 1-10 business days dependent on method of the application's submission. ??? Then, the [place] payroll representative aka [facility] RN assigned will contact [facility] to request clinicaldocumentation to submit to them for the clinical assessment they will complete. ??? The results from the clinical assessment by the [facility] RN assigned will be forwarded to the [facility] Financial Women'S Health Care Nurse Practitioner (FBS) assigned to conduct the application intake process with date & time for the mandatory Phone Eligibility Interview. ??? Next, the FBS will conduct the intake interview with the applicant or applicant's Authorized Brake Press Operator and generate a list of proofs or verifications required for [facility] to move through the application process [...] applicant's application is financially and medicallycleared by [facility] at the time the applicant has been discharged from [facility] for which outcomes can vary between [...] anemia,??GERD??c/b??esophagitis &??Farrell's esophagus??presenting in transfer from [facility], suspected to be in cardiogenic shock [...] Therapy: 48 (x2 schm, x1 thera act [id number]) Pager: [phone] DANIELA Montes 09/11/2022 Occupational Therapy Rehabilitation Department * Briana Bryant SLP - 09/11/2022 10:13 AM EDT Speech-Language Pathology Consult Note Ishan Irving is a 62 year old female with a medical history notable for??recent L femoral neck fracture,??bipolar disorder, resolving medication- induced Parkinsonism, insulin-dependent diabetesmellitus,??hx of alcohol use disorder (reported to be in remission for 1.5 years) c/b chronic pancreatitis, iron deficiency anemia,??GERD??c/b??esophagitis &??Farrell's esophagus??presenting in transfer from [facility]??on 08/14/2022, suspected to be in cardiogenic shock and found to be in mixed shock with concern for stress cardiomyopathy.??[employer]EL SALES ASSOCIATE following for swallow, cognitive tx. MBS completed [...] placement as well as GJ tube placement. [employer]EL SALES ASSOCIATE team has been following pt for dysphagia in ICU. Transferred to floor on 09/07/22. AP[employer]EL SALES ASSOCIATE have been unable to work w/ Pt on PO trials due to NPO for potential PEG, and now GJ tube. Was cleared to takesmall amounts of ice chips yesterday, pt seen, however had emesis episode w/ ice chips at that time. RN states pt NPO for potential surgery again today, DHT to be replaced for medication passes in mean time as per RN.. [employer] SALES [employer]OCIATE team will continue to monitor. Briana Bryant MA [facility] [employer] Inpatient Rehabilitation Medicine pager:# [phone] * Chau Keith MD - 09/11/2022 6:15 AM EDT Images from the original note were not included. Inpatient Hospital Medicine Progress Note 09/11/2022 Patient Name: ISHAN IRVING Date of : 1960 Age: 62 y.o. Hospital Admit Date: 08/14/2022 Hospital Day: 28 Inpatient Attending: Molina Flores MD PCP: Crhis Stanley APRN ([phone]) ID: Ishan Irving is a 62 y.o. 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.5 years) c/b chronic pancreatitis, iron deficiency anemia, ??GERD??c/b??esophagitis &??Farrell's esophagus, who was admitted to [facility] on 08/14/2022 (now on Hospital Day [...] fellows interpretation Confirmed by fellow Niurka Rose ([id number]) on 09/07/2022 8:45:34 AM Confirmed by MD [...] Date/Time Lower Respiratory Culture Bronchial Alveolar Lavage [[id number]] Collected: 08/21/22 1650 Lab Status: Final result Specimen: Bronchial Alveolar Lavage Updated: 08/23/22 0741 Lower Respiratory Culture Rare mixed bacterial morphotypes suggestive of normal upper respiratory wiley Gram Stain -- Few Neutrophils seen No squamous epithelial cells seen No microorganisms seen. Fungus Culture & Calc Stain Bronchial Alveolar Lavage [[id number]] (Abnormal) Collected: 08/21/22 1650 Lab Status: Preliminary result Specimen: Bronchial Alveolar Lavage Updated: 08/24/22 1452 AFB culture Bronchial Alveolar Lavage [[id number]] Collected: 08/21/22 165 Lab Status: Preliminary result Specimen: Bronchial Alveolar Lavage Updated: 08/24/22 2219 Acid Fast Bacilli Culture -- No Acid Fast Bacilli isolated to date If active tuberculosis is suspected, the patient should be on AIRBORNE PRECAUTIONS. Call Infection Prevention for assistance if needed. Acid Fast Stain No Acid Fast Bacilli seen Fungus culture [[id number]] (Abnormal) Collected: 08/21/22 165 Lab Status: Preliminary result Specimen: Bronchial Alveolar Lavage Updated: 08/24/22 1452 Fungus Culture Rare Jacky albicans Calcofluor White Stain [[id number]] Collected: 08/21/221649 Lab Status: Final result Specimen: Bronchial Alveolar Lavage Updated: 08/21/222015 Calcofluor Stain Calcofluor White Preparation: Negative Lower Respiratory Culture Bronchial Alveolar Lavage [[id number]] Collected: 08/21/221644 Lab Status: Final result Specimen: Bronchial Alveolar Lavage Updated: 08/23/22 0741 Lower Respiratory Culture Rare mixed bacterial morphotypes suggestive of normal upper respiratory wiley Gram Stain -- Moderate Neutrophils seen No squamous epithelial cells seen No microorganisms seen. Fungus Culture & Calc Stain Bronchial Alveolar Lavage [[id number]] (Abnormal) Collected: 08/21/221644 Lab Status: Preliminary result Specimen: Bronchial Alveolar Lavage Updated: 08/24/22 1453 AFB culture Bronchial Alveolar Lavage [[id number]] Collected: 08/21/221644 Lab Status: Preliminary result Specimen: Bronchial Alveolar Lavage Updated: 08/24/22 2221 Acid Fast Bacilli Culture -- No Acid Fast Bacilli isolated to date If active tuberculosis is suspected, the patient should be on AIRBORNE PRECAUTIONS. Call Infection Prevention for assistance if needed. Acid Fast Stain No Acid Fast Bacilli seen Fungus culture [[id number]] (Abnormal) Collected: 08/21/22 164 Lab Status: Preliminary result Specimen: Bronchial Alveolar Lavage Updated: 08/24/22 1453 Fungus Culture Rare Jacky albicans Calcofluor White Stain [[id number]] Collected: 08/21/221644 Lab Status: Final result Specimen: Bronchial Alveolar Lavage Updated: 08/21/222016 Calcofluor Stain Calcofluor White Preparation: Negative Blood culture [[id number]] Collected: 08/19/22 1720 Lab Status: Final result Specimen: Blood Updated: 08/24/22 2301 Blood Culture No growth at 5 days. Lower Respiratory Culture Sputum Induced [[id number]] Collected: 08/19/22 1451 Lab Status: Final result Specimen: Sputum Induced Updated: 08/21/22 0948 Lower Respiratory Culture Rare mixed bacterial morphotypes suggestive of normal upper respiratory wiley Gram Stain -- Many Neutrophils seen Few squamous epithelial cells seen No microorganisms seen. Blood culture [[id number]] Collected: 08/19/22 1330 Lab Status: Final result Specimen: Blood Updated: 08/24/22 1501 Blood Culture No growth at 5 days. Legionella Urinary Antigen [[id number]] Collected: 08/18/22 1013 Lab Status: Final result [...] Catheter Urine; Other; sepsis, bacteria on UA [[id number]] Collected: 08/15/22 1225 Lab Status: Final result Specimen: Indwelling Catheter Urine Updated: 08/16/22 0804 Urine Culture 1,000-9,000 cfu/ml Insignificant growth COVID-19 PCR [[id number]] Collected: 08/15/22 1150 Lab Status: Final result [...] using the Simplexa COVID-19 Direct Assay by Apiary as authorized by the FDA issued Emergency [...] Department of Pathology and Laboratory Medicine at [facility], certified under the Clinical Laboratory Improvement Amendments [...] fact sheets at the following FDA website: https://www.fda.gov/medical-devices/yzqbnxgglly-mecaaih-1840-aewbq-12-suhqwfgrg- gdp-ifqkrqgeexystd-szilkak-devices/fxzpb-kczyyqfznmz-mque SARS-CoV-2 Source PLAN COORDINATOR Swab Lower Respiratory Culture Sputum Induced [[id number]] Collected: 08/15/22 0740 Lab Status: Final result Specimen: Sputum Induced Updated: 08/17/22 1015 Lower Respiratory Culture Rare normal upper respiratory wiley Gram Stain -- Many Neutrophils Few squamous epithelial cells Rare mixed bacterial morphotypes suggestive of normal upper respiratory wiley Blood culture [[id number]] Collected: 08/15/22 0110 Lab Status: Final result Specimen: Blood Updated: 08/20/22 0701 Blood Culture No growth at 5 days. MRSA PCR Screen ([facility]/CGP/APD/NLH) [[id number]] Collected: 08/15/22 0050 Lab Status: Final result Specimen: Nasopharyngeal Swab Updated: 08/17/22 1419 MRSA Result Negative MRSA Interp -- Methicillin-resistant Staphylococcus aureus (MRSA) is NOT DETECTED The MRSA target DNA sequences (mec and SCC) were not detected within the acceptable ranges using the Xpert MRSA NxG on the GeneXpert Dx System ([employer]). This suggests the absence of MRSA in the patient specimen submitted for testing. This test is cleared by the U.S. Food and Drug Administration for clinical use and its performance characteristics have been verified by the [facility] at [facility]. This result does not rule out the presence of any other organisms. Rare false negative results may occur if MRSA is present at low concentrations with much higher concentrations of other organisms including MRSE or S. aureus with an empty SCC cassette. Comment: [VERIFIED DATE]08.17.22 Verified By:Shannon Smiley (Electronic Signature) Blood culture [[id number]] Collected: 08/14/22 9942 Lab Status: Final result Specimen: Blood Updated: [...] who have questions please contact the health patient care technician instructor that requested your imaging first. Abdomen 1 [...] who have questions please contact the health patient care technician instructor that requested your imaging first. Chest One [...] who have questions please contact the health patient care technician instructor that requested your imaging first. Abdomen 1 [...] who have questions please contact the health patient care technician instructor that requested your imaging first. Chest One [...] who have questions please contact the health patient care technician instructor that requested your imaging first. Head wo [...] who have questions please contact the health patient care technician instructor that requested your imaging first. Electronically signed by: Moustapha Correa MD, [facility] ([phone]), at 08/16/2022 11:19 PM XR Abdomen 1 [...] who have questions please contact the health patient care technician instructor that requested your imaging first. Head wo Contrast (Generic) (Exam End: 08/18/2022 3:14 PM) Impression No acute intracranial process. Thank you for letting us participate in the care of this patient. If you are a health care provider and have any questions regarding this report, please contact the number below. For patients who have questions please contact the health patient care technician instructor that requested your imaging first. Chest One [...] who have questions please contact the health patient care technician instructor that requested your imaging first. Brain wo Contrast (Exam End: 08/19/2022 10:15 PM) Impression No acute infarction, mass or mass effect. Thank you for letting us participate in the care of this patient. If you are a health care provider and have any questions regarding this report, please contact the number below. For patients who have questions please contact the health patient care technician instructor that requested your imaging first. Chest for [...] who have questions please contact the health patient care technician instructor that requested your imaging first. Hip w [...] who have questions please contact the health patient care technician instructor that requested your imaging first. Electronically signed by: Aicha Chowdhury MD, [facility] ([phone]), at 08/21/2022 9:[address] Chest w [...] who have questions please contact the health patient care technician instructor that requested your imaging first. Hip 2-3 Views Left (Exam End: 08/22/2022 12:19 AM) Impression No radiographic evidence of infection. Thank you for letting us participate in the care of this patient. If you are a health care provider and have any questions regarding this report, please contact the number below. For patients who have questions please contact the health patient care technician instructor that requested your imaging first. Electronically signed by: Viktor Cervantes MD, [facility] ([phone]), at 08/22/2022 12:43 PM XR Pelvis (Generic) (Exam End: 08/22/2022 12:19 AM) Impression No radiographic evidence of infection status post left hip ORIF. Thank you for letting us participate in the care of this patient. If you are a health care provider and have any questions regarding this report, please contact the number below. For patients who have questions please contact the health patient care technician instructor that requested your imaging first. Electronically signed by: Richard Billings MD, [facility] ([phone]), at 08/22/2022 10:[address] Angiogram Coronary [...] who have questions please contact the health patient care technician instructor that requested your imaging first. Chest wo Contrast (Generic) (Exam End: 08/27/2022 8:58 AM) Impression Stable findings of multifocal pneumonia. No interval abnormality. Thank you for letting us participate in the care of this patient. If you are a health care provider and have any questions regarding this report, please contact the number below. For patients who have questions please contact the health patient care technician instructor that requested your imaging first. Fluoro Barium [...] who have questions please contact the health patient care technician instructor that requested your imaging first. Fluoro Barium [...] who have questions please contact the health patient care technician instructor that requested your imaging first. Abdomen 1 [...] who have questions please contact the health patient care technician instructor that requested your imaging first. Chest One [...] who have questions please contact the health patient care technician instructor that requested your imaging first. Chest One View (Exam End: 09/05/2022 9:24 AM) Impression 1. Reposition enteric tube now extending below the diaphragm and included [id number]. 2. Similar appearance of elevated right hemidiaphragm and linear/patchy bibasilar opacities which may represent atelectasis or possibly aspiration. Thank you for letting us participate in the care of this patient. If you are a health care provider and have any questions regarding this report, please contact the number below. For patients who have questions please contact the health patient care technician instructor that requested your imaging first. Abdomen 1 [...] who have questions please contact the health patient care technician instructor that requested your imaging first. Medications: Scheduled: [...] RD??c/b??esophagitis &??Farrell's esophagus, who was admitted to [facility] on 08/14/2022 (now on Hospital Day [...] that she should continue to work with PT/OT/APPAREL SALES ASSOCIATE/nursing but that the most recent assessments still [...] discharge - C/w valproate 300mg q6h - [employer]PAREL SALES ASSOCIATE following, NPO at present - Psychiatry Consult, [...] Medicine PGY1 Medicine Team: Jose Juan, Pager #[phone] Date: 09/11/2022 Associated attestation - Molina Flores [...] of two midnights or is on the [facility] inpatient only procedure list (status C) [...] PLAN GOAL OUTCOME EVALUATION: * Briana Bryant, [employer]EL SALES [employer]OCIATE - 09/10/2022 12:44 PM EDT Speech Therapy Note Patient Profile:??Ishan Irving is a 62 year old female with a medical history notable for??recent L femoral neck fracture,??bipolar disorder, resolving medication-induced Parkinsonism, insulin-dependent diabetes mellitus,??hx of alcohol use disorder (reported to be in remission for 1.5 years)c/b chronic pancreatitis, iron deficiency anemia,??GERD??c/b??esophagitis &??Farrell's esophagus??presenting in transfer from [facility]??on 08/14/2022, suspected to be in cardiogenic shock and found to be in mixed shock with concern for stress cardiomyopathy.??[employer]EL SALES ASSOCIATE following for swallow, cognitive tx. MBS completed [...] x1 of 8 ice chip trials w/ APPAREL SALES ASSOCIATE; refer to Gastroenterology note for further information. Education: Pt educated on results and recommendations, discussed with nursing. Assessment: Pt was seen today for a follow-up [employer]EL SALES ASSOCIATE visit. Pt w/ ongoing moderate- severe dysphagia [...] assist from??staff as needed Plan: Therapy Frequency ([employer]EL SALES ASSOCIATE Eval): 2-4 times/wk Pt./family are in agreement with treatment plan. Total Minutes (Speech Language Pathology): 12 Thank you for this consult with this patient. Please feel free to message me with any questions orconcerns. Sari Juarez. [place] Nurse Clinician Speech-Language Pathology Patient status, treatment interventions, and goals discussed with student. I am in agreement with note as documented and was present for all aspects of the patient treatment session. Briana Bryant MA, [facility]-APPAREL SALES ASSOCIATE Pager: [phone] Speech-Language Pathology Inpatient Rehabilitation Medicine * Marybeth Shelley RN - 09/10/2022 11:29 AM EDTSummary: [facility] Medicaid Referral Identification of [facility] Medicaid insurance coverage IS required to facilitate this hospital discharge and was determined due to the following circumstances: Patient is in need of rehab at discharge prior to returning home with . Current insurance plan is [place] Medicaid Primary Care Plus, this plan does not have rehab coverage. Confirmed with spouse that they DO NOT have [employer] [place] Medicaid coverage for [place] residents or [employer] [place] Medicaid coverage for [place] residents and that an application for these specific Payment Collector Care Medicaid programs HAVE NOT been submitted to their State of Residence to date for enrollment. Conversation with patient and/or patient advocate regarding the need for Payment Collector Care Medicaid insurance coverage was conducted on 09/10/2022 and a referral has been made to the Care Management [place] for Payment Collector Care Medicaid insurance assistance and/or enrollment on 09/10/2022. Marybeth Shelley RN, BSN Cistern Room Working Supervisor - Medicine Office of Care Management Office: Pager: [phone] * Minh Cantu MD - 09/10/2022 11:00 [...] RD??c/b??esophagitis &??Farrell's esophagus, who was admitted to [facility] on 08/14/2022 (now on Hospital Day [...] anemia,??GERD??c/b??esophagitis &??Farrell's esophagus??presenting in transfer from [facility], suspected to be in cardiogenic shock and found to be in mixed shock with concern for stress cardiomyopathy. She is s/p ORIF left femoral neck fracture ~ 4/ at OSH. Interval History: Transferred to [facility], attempted PEG placement 09/09, unsuccessful d/t [...] the current findings, Anticipated Discharge Disposition (PT): half-way facility when medically ready for hospital discharge. [...] plan as stated. Time IN / OUT: 6841-3869 Total Minutes, Physical Therapy: 42 Billing Code: TA x3 Trell Sanford, PT, DPT Pager: [phone] Physical Therapy Inpatient Rehabilitation Department * Lucia [...] Last revised on 03/10/22 #3, per recent [employer]EL SALES ASSOCIATE note on 09/04 - Addendum: APPAREL SALES ASSOCIATE returned to pt's room at 1230 to [...] and agreement with thetreatment plan and informed APPAREL SALES ASSOCIATE of her continued goal to resume consuming [...] Molina Flores MD PCP: Chris Stanley APRN ([phone]) ID: Ishan Irving is a 62 y.o. 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.5 years) c/b chronic pancreatitis, iron deficiency anemia, ??GERD??c/b??esophagitis &??Farrell's esophagus, who was admitted to [facility] on 08/14/2022 (now on Hospital Day [...] dry, no rashes LABS: CBC: Recent Labs 09/09/2239909/08/2219909/07/220 09/06/229909/05/22 010 WBC 6.9 6.9 6.2 6.3 4.9 HGB 9.8* 9.8* 9.1* 8.6* 8.7* HCT 33.4* 32.6* 30.5* 29.0* 29.0* PLATELET 264 300 286 297 314 NEUTROABS 3.43 3.42 2.71 2.64 1.88 Chemistry: Recent Labs 09/09/2239909/08/2219909/07/220 09/06/220 09/05/22 0106 NA 140 142 138 139 140 K 4.3 4.6 4.6 4.3 3.8 CL 102 103 103 104 103 CO2 28 30 29 28 28 BUN 24* 25* 22* 21* 21* CREATININE 0.56* 0.52* 0.53* 0.49* 0.49* GLUCOSE 139 142 144 95 95 ANIONGAP 10 9 6 7 9 Recent Labs 09/09/2239909/08/220 09/07/220 09/06/220 09/05/22 0106 CALCIUM 10.1 10.0 9.4 9.5 [...] fellows interpretation Confirmed by fellow Niurka Rose ([id number]) on 09/07/2022 8:45:34 AM Confirmed by MD [...] Date/Time Lower Respiratory Culture Bronchial Alveolar Lavage [[id number]] Collected: 08/21/221649 Lab Status: Final result Specimen: Bronchial Alveolar Lavage Updated: 08/23/22 0741 Lower Respiratory Culture Rare mixed bacterial morphotypes suggestive of normal upper respiratory wiley Gram Stain -- Few Neutrophils seen No squamous epithelial cells seen No microorganisms seen. Fungus Culture & Calc Stain Bronchial Alveolar Lavage [[id number]] (Abnormal) Collected: 08/21/221649 Lab Status: Preliminary result Specimen: Bronchial Alveolar Lavage Updated: 08/24/22 1452 AFB culture Bronchial Alveolar Lavage [[id number]] Collected: 08/21/221649 Lab Status: Preliminary result Specimen: Bronchial Alveolar Lavage Updated: 08/24/22 2219 Acid Fast Bacilli Culture -- No Acid Fast Bacilli isolated to date If active tuberculosis is suspected, the patient should be on [employer]IONS. Call Infection Prevention for assistance if needed. Acid Fast Stain No Acid Fast Bacilli seen Fungus culture [[id number]] (Abnormal) Collected: 08/21/221649 Lab Status: Preliminary result Specimen: Bronchial Alveolar Lavage Updated: 08/24/22 145 Fungus Culture Rare Jacky albicans Calcofluor White Stain [[id number]] Collected: 08/21/221649 Lab Status: Final result Specimen: Bronchial Alveolar Lavage Updated: 08/21/222015 Calcofluor Stain Calcofluor White Preparation: Negative Lower Respiratory Culture Bronchial Alveolar Lavage [[id number]] Collected: 08/21/221644 Lab Status: Final result Specimen: Bronchial Alveolar Lavage Updated: 08/23/22 0741 Lower Respiratory Culture Rare mixed bacterial morphotypes suggestive of normal upper respiratory wiley Gram Stain -- Moderate Neutrophils seen No squamous epithelial cells seen No microorganisms seen. Fungus Culture & Calc Stain Bronchial Alveolar Lavage [[id number]] (Abnormal) Collected: 08/21/221644 Lab Status: Preliminary result Specimen: Bronchial Alveolar Lavage Updated: 08/24/22 1453 AFB culture Bronchial Alveolar Lavage [[id number]] Collected: 08/21/221644 Lab Status: Preliminary result Specimen: Bronchial Alveolar Lavage Updated: 08/24/22 2221 Acid Fast Bacilli Culture -- No Acid Fast Bacilli isolated to date If active tuberculosis is suspected, the patient should be on [employer] PRECA[employer]IONS. Call Infection Prevention for assistance if needed. Acid Fast Stain No Acid Fast Bacilli seen Fungus culture [[id number]] (Abnormal) Collected: 08/21/221644 Lab Status: Preliminary result Specimen: Bronchial Alveolar Lavage Updated: 08/24/22 1453 Fungus Culture Rare Jacky albicans Calcofluor White Stain [[id number]] Collected: 08/21/22 1645 Lab Status: Final result Specimen: Bronchial Alveolar Lavage Updated: 08/21/22 2017 Calcofluor Stain Calcofluor White Preparation: Negative Blood culture [[id number]] Collected: 08/19/22 1720 Lab Status: Final result Specimen: Blood Updated: 08/24/22 2301 Blood Culture No growth at 5 days. Lower Respiratory Culture Sputum Induced [[id number]] Collected: 08/19/22 1451 Lab Status: Final result Specimen: Sputum Induced Updated: 08/21/22 0948 Lower Respiratory Culture Rare mixed bacterial morphotypes suggestive of normal upper respiratory wiley Gram Stain -- Many Neutrophils seen Few squamous epithelial cells seen No microorganisms seen. Blood culture [[id number]] Collected: 08/19/22 1330 Lab Status: Final result Specimen: Blood Updated: 08/24/22 1501 Blood Culture No growth at 5 days. Legionella Urinary Antigen [[id number]] Collected: 08/18/22 1013 Lab Status: Final result [...] Catheter Urine; Other; sepsis, bacteria on UA [[id number]] Collected: 08/15/22 1225 Lab Status: Final result Specimen: Indwelling Catheter Urine Updated: 08/16/22 0804 Urine Culture 1,000-9,000 cfu/ml Insignificant growth COVID-19 PCR [[id number]] Collected: 08/15/22 1150 Lab Status: Final result [...] using the Simplexa COVID-19 Direct Assay by [employer]pi[employer] as authorized by the FDA issued Emergency [...] Department of Pathology and Laboratory Medicine at [facility], certified under the Clinical Laboratory Improvement Amendments [...] fact sheets at the following FDA website: https://www.fda.gov/medical-devices/gkjipoxvwnu-glisdxz-7240-qqgim-65-fvvacilpw- yvx-iyqsesgmvetrnu-gzbtclm-devices/xmfkv-csvrxrqhurj-dkkp SARS-CoV-2 Source PLAN COORDINATOR Swab Lower Respiratory Culture Sputum Induced [[id number]] Collected: 08/15/22 0740 Lab Status: Final result Specimen: Sputum Induced Updated: 08/17/22 1015 Lower Respiratory Culture Rare normal upper respiratory wiley Gram Stain -- Many Neutrophils Few squamous epithelial cells Rare mixed bacterial morphotypes suggestive of normal upper respiratory wiley Blood culture [[id number]] Collected: 08/15/22 0110 Lab Status: Final result Specimen: Blood Updated: 08/20/22 0701 Blood Culture No growth at 5 days. MRSA PCR Screen ([facility]/CGP/APD/NLH) [[id number]] Collected: 08/15/22 0050 Lab Status: Final result Specimen: Nasopharyngeal Swab Updated: 08/17/22 1419 MRSA Result Negative MRSA Interp -- Methicillin-resistant Staphylococcus aureus (MRSA) is NOT DETECTED The MRSA target DNA sequences (mec and SCC) were not detected within the acceptable ranges using the Xpert MRSA NxG on the GeneXpert Dx System ([employer]). This suggests the absence of MRSA in the patient specimen submitted for testing. This test is cleared by the U.S. Food and Drug Administration for clinical use and its performance characteristics have been verified by the [facility] at [facility]. This result does not rule out the presence of any other organisms. Rare false negative results may occur if MRSA is present at low concentrations with much higher concentrations of other organisms including MRSE or S. aureus with an empty SCC cassette. Comment: [VERIFIED DATE]08.17.22 Verified By:Shannon Smiley (Electronic Signature) Blood culture [[id number]] Collected: 08/14/22 2355 Lab Status: Final result [...] who have questions please contact the health patient care technician instructor that requested your imaging first. Abdomen 1 [...] who have questions please contact the health patient care technician instructor that requested your imaging first. Chest One [...] who have questions please contact the health patient care technician instructor that requested your imaging first. Abdomen 1 [...] who have questions please contact the health patient care technician instructor that requested your imaging first. Chest One [...] who have questions please contact the health patient care technician instructor that requested your imaging first. Head wo [...] who have questions please contact the health patient care technician instructor that requested your imaging first. Electronically signed by: Moustapha Correa MD, [facility] ([phone]), at 08/16/2022 11:19 PM XR Abdomen 1 [...] who have questions please contact the health patient care technician instructor that requested your imaging first. Head wo Contrast (Generic) (Exam End: 08/18/2022 3:14 PM) Impression No acute intracranial process. Thank you for letting us participate in the care of this patient. If you are a health care provider and have any questions regarding this report, please contact the number below. For patients who have questions please contact the health patient care technician instructor that requested your imaging first. Chest One [...] who have questions please contact the health patient care technician instructor that requested your imaging first. Brain wo Contrast (Exam End: 08/19/2022 10:15 PM) Impression No acute infarction, mass or mass effect. Thank you for letting us participate in the care of this patient. If you are a health care provider and have any questions regarding this report, please contact the number below. For patients who have questions please contact the health patient care technician instructor that requested your imaging first. Chest for [...] who have questions please contact the health patient care technician instructor that requested your imaging first. Hip w [...] who have questions please contact the health patient care technician instructor that requested your imaging first. Electronically signed by: Aicha Chowdhury MD, [facility] ([phone]), at 08/21/2022 9:[address] Chest w [...] who have questions please contact the health patient care technician instructor that requested your imaging first. Hip 2-3 Views Left (Exam End: 08/22/2022 12:19 AM) Impression No radiographic evidence of infection. Thank you for letting us participate in the care of this patient. If you are a health care provider and have any questions regarding this report, please contact the number below. For patients who have questions please contact the health patient care technician instructor that requested your imaging first. Electronically signed by: Viktor Cervantes MD, [facility] ([phone]), at 08/22/2022 12:43 PM XR Pelvis (Generic) (Exam End: 08/22/2022 12:19 AM) Impression No radiographic evidence of infection status post left hip ORIF. Thank you for letting us participate in the care of this patient. If you are a health care provider and have any questions regarding this report, please contact the number below. For patients who have questions please contact the health patient care technician instructor that requested your imaging first. Electronically signed by: Richard Billings MD, [facility] ([phone]), at 08/22/2022 10:[address] Angiogram Coronary [...] who have questions please contact the health patient care technician instructor that requested your imaging first. Chest wo Contrast (Generic) (Exam End: 08/27/2022 8:58 AM) Impression Stable findings of multifocal pneumonia. No interval abnormality. Thank you for letting us participate in the care of this patient. If you are a health care provider and have any questions regarding this report, please contact the number below. For patients who have questions please contact the health patient care technician instructor that requested your imaging first. Fluoro Barium [...] who have questions please contact the health patient care technician instructor that requested your imaging first. Fluoro Barium [...] who have questions please contact the health patient care technician instructor that requested your imaging first. Abdomen 1 [...] who have questions please contact the health patient care technician instructor that requested your imaging first. Chest One [...] who have questions please contact the health patient care technician instructor that requested your imaging first. Chest One View (Exam End: 09/05/2022 9:24 AM) Impression 1. Reposition enteric tube now extending below the diaphragm and included [id number]. 2. Similar appearance of elevated right hemidiaphragm and linear/patchy bibasilar opacities which may represent atelectasis or possibly aspiration. Thank you for letting us participate in the care of this patient. If you are a health care provider and have any questions regarding this report, please contact the number below. For patients who have questions please contact the health patient care technician instructor that requested your imaging first. Abdomen 1 [...] who have questions please contact the health patient care technician instructor that requested your imaging first. Medications: Scheduled: [...] ??? dextrose 5% lactated ringers 100 mL/hr (09/10/221) ??? tube feeding diet Stopped (05/02/23 2026) PRN: prochlorperazine, ondansetron, diclofenac, acetaminophen, polyethylene glycoL, [...] RD??c/b??esophagitis &??Farrell's esophagus, who was admitted to [facility] on 08/14/2022 (now on Hospital Day [...] them that she shouldcontinue to work with PT/OT/[employer] SAL[employer]OCIATE/nursing but that the most recent assessments still [...] discharge - C/w valproate 300mg q6h - [employer] following, NPO at present - Psychiatry Consult, [...] Medicine PGY1 Medicine Team: Jose Juan, Pager #[phone] Date: 09/10/2022 Associated attestation - Molina Flores [...] of two midnights or is on the [facility] inpatient only procedure list (status C) [...] - Assisting: Procedure(s): EGD, UPPER GI ENDOSCOPY (WRU 2.09) Findings: - Procedure was performed in [...] - Continue post-op plan per primary team. Cahka Ortiz MD 09/10/2022 General Surgery * Rober Bergeron RN - 09/10/2022 12:54 AM EDT 0043- Pt arrived in PACU 6L simple mask Coughing suctioned clear sputum, VSS, pain tolerable, xray paged for KUB 0105- KUB done * Wilda Blankenship, RD - 09/09/2022 1:09 PM EDT Nutrition Progress Note Ishan Irving is a 62 y.o.??female??with h/o bipolar, DM, EtOH, esophagitis, who presented to [facility] 3 days ago after being found unresponsive at home.?Patient found to have likely pneumonia +/- aspiration, newly reduced EF. Reason for Assessment: Tube Feeding, Follow-up Nutrition Recommendations: S/p PEG placement, resume current TF: Cyclic Peptamen AF at 90ml/hr for 14 hrs from 2703-2785 (pended). At goal, this will provide: Peptamen AF Total Volume Per Day: 1260 mL Scoops of Protein: 0 Calories per Day: 1512 Protein per Day: 96 g Free Water mL per Day: 1023 % RDI: 101 % Monitor hydration status on above TFs as they are concentrated. Pt may need additional fluids depending on IVFs, med flushes, p.o. Intake, etc. Po diet per [employer] (recs 09/04 NPO s/p MBS) Continue 50,000 [...] Peptamen AF at 110ml/hr for 12hrs from 5554-1458 (see updated order above as of 09/07). [...] encounter: 64.5 kg (142 lb 1.6 oz). Almond Body Weight (IBW) (kg): 45.45 Usual Body [...] 08/25 r/t liquid tylenol, d/c per this procedure writer's request as liquid tylenol acts as [...] while inpatient THANKS Wilda Blankenship RD Pager #:[phone] * Alicia Cook, OT - 09/09/2022 9:30 [...] anemia,??GERD??c/b??esophagitis &??Farrell's esophagus??presenting in transfer from [facility], suspected to be in cardiogenic shock [...] Total Minutes, Occupational Therapy: 37 (2 TA, [phone]) Pager: [phone] Alicia Cook OT 09/09/2022 Occupational Therapy Rehabilitation [...] RD??c/b??esophagitis &??Farrell's esophagus, who was admitted to [facility] on 08/14/2022 (now on Hospital Day [...] Molina Flores MD PCP: Chris Stanley APRN ([phone]) ID: Ishan Irving is a 62 y.o. 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.5 years) c/b chronic pancreatitis, iron deficiency anemia, ??GERD??c/b??esophagitis &??Farrell's esophagus, who was admitted to [facility] on 08/14/2022 (now on Hospital Day [...] dry, no rashes LABS: CBC: Recent Labs 09/09/2239909/08/2219909/07/220 09/06/22 0100 09/05/22 0106 WBC 6.9 6.9 6.2 6.3 4.9 HGB 9.8* 9.8* 9.1* 8.6* 8.7* HCT 33.4* 32.6* 30.5* 29.0* 29.0* PLATELET 264 300 286 297 314 NEUTROABS 3.43 3.42 2.71 2.64 1.88 Chemistry: Recent Labs 09/09/2239909/08/220 09/07/220 09/06/22 0100 09/05/22 0106 NA 140 142 138 139 140 K 4.3 4.6 4.6 4.3 3.8 CL 102 103 103 104 103 CO2 28 30 29 28 28 BUN 24* 25* 22* 21* 21* CREATININE 0.56* 0.52* 0.53* 0.49* 0.49* GLUCOSE 139 142 144 95 95 ANIONGAP 10 9 6 7 9 Recent Labs 09/09/220 09/08/220 09/07/22 0030 09/06/22 0100 09/05/22 0106 CALCIUM [...] fellows interpretation Confirmed by fellow Niurka Rose ([id number]) on 09/07/2022 8:45:34 AM Confirmed by MD [...] Date/Time Lower Respiratory Culture Bronchial Alveolar Lavage [[id number]] Collected: 08/21/22 1650 Lab Status: Final result Specimen: Bronchial Alveolar Lavage Updated: 08/23/22 0741 Lower Respiratory Culture Rare mixed bacterial morphotypes suggestive of normal upper respiratory wiley Gram Stain -- Few Neutrophils seen No squamous epithelial cells seen No microorganisms seen. Fungus Culture & Calc Stain Bronchial Alveolar Lavage [[id number]] (Abnormal) Collected: 08/21/221649 Lab Status: Preliminary result Specimen: Bronchial Alveolar Lavage Updated: 08/24/22 1452 AFB culture Bronchial Alveolar Lavage [[id number]] Collected: 08/21/221649 Lab Status: Preliminary result Specimen: Bronchial Alveolar Lavage Updated: 08/24/22 2219 Acid Fast Bacilli Culture -- No Acid Fast Bacilli isolated to date If active tuberculosis is suspected, the patient should be on [employer] PRECAUTIONS. Call Infection Prevention for assistance if needed. Acid Fast Stain No Acid Fast Bacilli seen Fungus culture [[id number]] (Abnormal) Collected: 08/21/221649 Lab Status: Preliminary result Specimen: Bronchial Alveolar Lavage Updated: 08/24/22 145 Fungus Culture Rare Jacky albicans Calcofluor White Stain [[id number]] Collected: 08/21/221649 Lab Status: Final result Specimen: Bronchial Alveolar Lavage Updated: 08/21/222015 Calcofluor Stain Calcofluor White Preparation: Negative Lower Respiratory Culture Bronchial Alveolar Lavage [[id number]] Collected: 08/21/221644 Lab Status: Final result Specimen: Bronchial Alveolar Lavage Updated: 08/23/22 0741 Lower Respiratory Culture Rare mixed bacterial morphotypes suggestive of normal upper respiratory wiley Gram Stain -- Moderate Neutrophils seen No squamous epithelial cells seen No microorganisms seen. Fungus Culture & Calc Stain Bronchial Alveolar Lavage [[id number]] (Abnormal) Collected: 08/21/221644 Lab Status: Preliminary result Specimen: Bronchial Alveolar Lavage Updated: 08/24/22 1453 AFB culture Bronchial Alveolar Lavage [[id number]] Collected: 08/21/221644 Lab Status: Preliminary result Specimen: Bronchial Alveolar Lavage Updated: 08/24/22 222 Acid Fast Bacilli Culture -- No Acid Fast Bacilli isolated to date If active tuberculosis is suspected, the patient should be on [employer] PRECAUTIONS. Call Infection Prevention for assistance if needed. Acid Fast Stain No Acid Fast Bacilli seen Fungus culture [[id number]] (Abnormal) Collected: 08/21/221644 Lab Status: Preliminary result Specimen: Bronchial Alveolar Lavage Updated: 08/24/22 1453 Fungus Culture Rare Jacky albicans Calcofluor White Stain [[id number]] Collected: 08/21/22 1645 Lab Status: Final result Specimen: Bronchial Alveolar Lavage Updated: 08/21/22 2017 Calcofluor Stain Calcofluor White Preparation: Negative Blood culture [[id number]] Collected: 08/19/22 1720 Lab Status: Final result Specimen: Blood Updated: 08/24/22 2301 Blood Culture No growth at 5 days. Lower Respiratory Culture Sputum Induced [[id number]] Collected: 08/19/22 1451 Lab Status: Final result Specimen: Sputum Induced Updated: 08/21/22 0948 Lower Respiratory Culture Rare mixed bacterial morphotypes suggestive of normal upper respiratory wiley Gram Stain -- Many Neutrophils seen Few squamous epithelial cells seen No microorganisms seen. Blood culture [[id number]] Collected: 08/19/22 1330 Lab Status: Final result Specimen: Blood Updated: 08/24/22 1501 Blood Culture No growth at 5 days. Legionella Urinary Antigen [[id number]] Collected: 08/18/22 1013 Lab Status: Final result [...] Catheter Urine; Other; sepsis, bacteria on UA [[id number]] Collected: 08/15/22 1225 Lab Status: Final result Specimen: Indwelling Catheter Urine Updated: 08/16/22 0804 Urine Culture 1,000-9,000 cfu/ml Insignificant growth COVID-19 PCR [[id number]] Collected: 08/15/22 1150 Lab Status: Final result [...] diagnosis of COVID-19 is performed using the [employer] COVID-19 Direct Assay by Apiary as authorized by the FDA issued Emergency [...] Department of Pathology and Laboratory Medicine at [facility], certified under the Clinical Laboratory Improvement Amendments [...] fact sheets at the following FDA website: https://www.fda.gov/medical-devices/poaxuomhkmb-weeepah-7221-uxzvk-55-mtsoozanu- wpj-mzpawibgveakjv-rgurzad-devices/mzhea-mixbqbrlsjv-pkdb SARS-CoV-2 Source PLAN COORDINATOR Swab Lower Respiratory Culture Sputum Induced [[id number]] Collected: 08/15/22 0740 Lab Status: Final result Specimen: Sputum Induced Updated: 08/17/22 1015 Lower Respiratory Culture Rare normal upper respiratory wiley Gram Stain -- Many Neutrophils Few squamous epithelial cells Rare mixed bacterial morphotypes suggestive of normal upper respiratory wiley Blood culture [[id number]] Collected: 08/15/22 0110 Lab Status: Final result Specimen: Blood Updated: 08/20/22 0701 Blood Culture No growth at 5 days. MRSA PCR Screen ([facility]/CGP/APD/NLH) [[id number]] Collected: 08/15/22 0050 Lab Status: Final result Specimen: Nasopharyngeal Swab Updated: 08/17/22 1419 MRSA Result Negative MRSA Interp -- Methicillin-resistant Staphylococcus aureus (MRSA) is NOT DETECTED The MRSA target DNA sequences (mec and SCC) were not detected within the acceptable ranges using the Xpert MRSA NxG on the GeneXpert Dx System ([employer]ie). This suggests the absence of MRSA in the patient specimen submitted for testing. This test is cleared by the U.S. Food and Drug Administration for clinical use and its performance characteristics have been verified by the [facility] at [facility]. This result does not rule out the presence of any other organisms. Rare false negative results may occur if MRSA is present at low concentrations with much higher concentrations of other organisms including MRSE or S. aureus with an empty SCC cassette. Comment: [VERIFIED DATE]08.17.22 Verified By:Shannon Smiley (Electronic Signature) Blood culture [[id number]] Collected: 08/14/22 2355 Lab Status: Final result [...] who have questions please contact the health patient care technician instructor that requested your imaging first. Abdomen 1 [...] who have questions please contact the health patient care technician instructor that requested your imaging first. Chest One [...] who have questions please contact the health patient care technician instructor that requested your imaging first. Abdomen 1 [...] who have questions please contact the health patient care technician instructor that requested your imaging first. Chest One [...] who have questions please contact the health patient care technician instructor that requested your imaging first. Head wo [...] who have questions please contact the health patient care technician instructor that requested your imaging first. Electronically signed by: Moustapha Correa MD, [facility] ([phone]), at 08/16/2022 11:19 PM XR Abdomen 1 [...] who have questions please contact the health patient care technician instructor that requested your imaging first. Head wo Contrast (Generic) (Exam End: 08/18/2022 3:14 PM) Impression No acute intracranial process. Thank you for letting us participate in the care of this patient. If you are a health care provider and have any questions regarding this report, please contact the number below. For patients who have questions please contact the health patient care technician instructor that requested your imaging first. Chest One [...] who have questions please contact the health patient care technician instructor that requested your imaging first. Brain wo Contrast (Exam End: 08/19/2022 10:15 PM) Impression No acute infarction, mass or mass effect. Thank you for letting us participate in the care of this patient. If you are a health care provider and have any questions regarding this report, please contact the number below. For patients who have questions please contact the health patient care technician instructor that requested your imaging first. Chest for [...] who have questions please contact the health patient care technician instructor that requested your imaging first. Hip w [...] who have questions please contact the health patient care technician instructor that requested your imaging first. Electronically signed by: Aicha Chowdhury MD, [facility] ([phone]), at 08/21/2022 9:[address] Chest w [...] who have questions please contact the health patient care technician instructor that requested your imaging first. Hip 2-3 Views Left (Exam End: 08/22/2022 12:19 AM) Impression No radiographic evidence of infection. Thank you for letting us participate in the care of this patient. If you are a health care provider and have any questions regarding this report, please contact the number below. For patients who have questions please contact the health patient care technician instructor that requested your imaging first. Electronically signed by: Viktor Cervantes MD, [facility] ([phone]), at 08/22/2022 12:43 PM XR Pelvis (Generic) (Exam End: 08/22/2022 12:19 AM) Impression No radiographic evidence of infection status post left hip ORIF. Thank you for letting us participate in the care of this patient. If you are a health care provider and have any questions regarding this report, please contact the number below. For patients who have questions please contact the health patient care technician instructor that requested your imaging first. Electronically signed by: Richard Billings MD, [facility] ([phone]), at 08/22/2022 10:[address] Angiogram Coronary [...] who have questions please contact the health patient care technician instructor that requested your imaging first. Chest wo Contrast (Generic) (Exam End: 08/27/2022 8:58 AM) Impression Stable findings of multifocal pneumonia. No interval abnormality. Thank you for letting us participate in the care of this patient. If you are a health care provider and have any questions regarding this report, please contact the number below. For patients who have questions please contact the health patient care technician instructor that requested your imaging first. Fluoro Barium [...] who have questions please contact the health patient care technician instructor that requested your imaging first. Fluoro Barium [...] who have questions please contact the health patient care technician instructor that requested your imaging first. Abdomen 1 [...] who have questions please contact the health patient care technician instructor that requested your imaging first. Chest One [...] who have questions please contact the health patient care technician instructor that requested your imaging first. Chest One View (Exam End: 09/05/2022 9:24 AM) Impression 1. Reposition enteric tube now extending below the diaphragm and included [id number]. 2. Similar appearance of elevated right hemidiaphragm and linear/patchy bibasilar opacities which may represent atelectasis or possibly aspiration. Thank you for letting us participate in the care of this patient. If you are a health care provider and have any questions regarding this report, please contact the number below. For patients who have questions please contact the health patient care technician instructor that requested your imaging first. 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 Today's plan: - Continue tube feeds - Diabetes Team aware and titrating insulin accordingly - Surgery consulted for PEG placement today # Bipolar Disorder - Continue Seroquel 100mg nightly for now, patient and want it uptitrated before discharge - C/w valproate 300mg q6h - [employer]IATE following, NPO at present - Psychiatry Consult, [...] Medicine PGY1 Medicine Team: Jose Juan, Pager #[phone] Date: 09/09/2022 Associated attestation - Molina Flores [...] of two midnights or is on the [facility] inpatient only procedure list (status C) due to: mixed shock , stress cardiomyopathy, aspiration pneumonia with underlying persistent dysphagia 2/2 stenosis at the Farrell esophagus site. * lAicia Glez OTA - 09/08/2022 11:01 AM EDT [...] anemia,??GERD??c/b??esophagitis &??Farrell's esophagus??presenting in transfer from [facility], suspected to be in cardiogenic shock [...] times/wk Total Minutes, Occupational Therapy: 45 (x3 [facility] [phone]) Pager: [phone] DANIELA Montes 09/08/2022 Occupational Therapy Rehabilitation Department * Elsie Erickson, CARDBOARD INSERTER - 09/08/2022 10:53 AM EDT Follow Up [...] anemia,??GERD??c/b??esophagitis &??Farrell's esophagus??presenting in transfer from [facility], suspected to be in cardiogenic shock [...] NPO for OR Monitoring:??Q4 Elsie Erickson APRN [facility] Endocrinology Diabetes Management Pager [phone] 20 minutes of this 35 minute visit [...] anemia,??GERD??c/b??esophagitis &??Farrell's esophagus??presenting in transfer from [facility], suspected to be in cardiogenic shock and found to be in mixed shock with concern for stress cardiomyopathy.??She is s/p ORIF left femoral neck fracture ~ 08/08 at OSH. ?? Interval History: Dobhoff placed, Moved from ISCU to floor status, plan for PEG today. [employer] team will continue to follow for swallowing and cognition. Briana Bryant MA CCC-[employer] SAL[employer] Inpatient Rehabilitation Medicine pager:# [phone] * Chau Keith MD - 09/08/2022 6:11 AM EDT Images from the original note were not included. Inpatient Hospital Medicine Progress Note 09/08/2022 Patient Name: ISHAN IRVING Date of : 1960 Age: 62 y.o. Hospital Admit Date: 08/14/2022 Hospital Day: 25 Inpatient Attending: Richard Pascal MD PCP: Chris Stanley APRN ([phone]) ID: Ishan Irving is a 62 y.o. 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.5 years) c/b chronic pancreatitis, iron deficiency anemia, ??GERD??c/b??esophagitis &??Farrell's esophagus, who was admitted to [facility] on 08/14/2022 (now on Hospital Day [...] fellows interpretation Confirmed by fellow Niurka Rose ([id number]) on 09/07/2022 8:45:34 AM Confirmed by MD AELJANDRA, RICHARD ([id number]) on 09/07/2022 1:55:43 PM QTCCALC [...] Date/Time Lower Respiratory Culture Bronchial Alveolar Lavage [[id number]] Collected: 08/21/221649 Lab Status: Final result Specimen: Bronchial Alveolar Lavage Updated: 08/23/22 0741 Lower Respiratory Culture Rare mixed bacterial morphotypes suggestive of normal upper respiratory wiley Gram Stain -- Few Neutrophils seen No squamous epithelial cells seen No microorganisms seen. Fungus Culture & Calc Stain Bronchial Alveolar Lavage [[id number]] (Abnormal) Collected: 08/21/221649 Lab Status: Preliminary result Specimen: Bronchial Alveolar Lavage Updated: 08/24/22 1452 AFB culture Bronchial Alveolar Lavage [[id number]] Collected: 08/21/221649 Lab Status: Preliminary result Specimen: Bronchial Alveolar Lavage Updated: 08/24/22 2219 Acid Fast Bacilli Culture -- No Acid Fast Bacilli isolated to date If active tuberculosis is suspected, the patient should be on [employer] PRECAUTIONS. Call Infection Prevention for assistance if needed. Acid Fast Stain No Acid Fast Bacilli seen Fungus culture [[id number]] (Abnormal) Collected: 08/21/221649 Lab Status: Preliminary result Specimen: Bronchial Alveolar Lavage Updated: 08/24/22 145 Fungus Culture Rare Jacky albicans Calcofluor White Stain [[id number]] Collected: 08/21/221649 Lab Status: Final result Specimen: Bronchial Alveolar Lavage Updated: 08/21/222015 Calcofluor Stain Calcofluor White Preparation: Negative Lower Respiratory Culture Bronchial Alveolar Lavage [[id number]] Collected: 08/21/221644 Lab Status: Final result Specimen: Bronchial Alveolar Lavage Updated: 08/23/22 0741 Lower Respiratory Culture Rare mixed bacterial morphotypes suggestive of normal upper respiratory wiley Gram Stain -- Moderate Neutrophils seen No squamous epithelial cells seen No microorganisms seen. Fungus Culture & Calc Stain Bronchial Alveolar Lavage [[id number]] (Abnormal) Collected: 08/21/221644 Lab Status: Preliminary result Specimen: Bronchial Alveolar Lavage Updated: 08/24/22 145 AFB culture Bronchial Alveolar Lavage [[id number]] Collected: 08/21/221644 Lab Status: Preliminary result Specimen: Bronchial Alveolar Lavage Updated: 08/24/22 222 Acid Fast Bacilli Culture -- No Acid Fast Bacilli isolated to date If active tuberculosis is suspected, the patient should be on AIR[employer] PRECAUTIONS. Call Infection Prevention for assistance if needed. Acid Fast Stain No Acid Fast Bacilli seen Fungus culture [[id number]] (Abnormal) Collected: 08/21/221644 Lab Status: Preliminary result Specimen: Bronchial Alveolar Lavage Updated: 08/24/22 145 Fungus Culture Rare Jacky albicans Calcofluor White Stain [[id number]] Collected: 08/21/221644 Lab Status: Final result Specimen: Bronchial Alveolar Lavage Updated: 08/21/22 2017 Calcofluor Stain Calcofluor White Preparation: Negative Blood culture [[id number]] Collected: 08/19/22 1720 Lab Status: Final result Specimen: Blood Updated: 08/24/22 2301 Blood Culture No growth at 5 days. Lower Respiratory Culture Sputum Induced [[id number]] Collected: 08/19/22 1451 Lab Status: Final result Specimen: Sputum Induced Updated: 08/21/22 0948 Lower Respiratory Culture Rare mixed bacterial morphotypes suggestive of normal upper respiratory wiley Gram Stain -- Many Neutrophils seen Few squamous epithelial cells seen No microorganisms seen. Blood culture [[id number]] Collected: 08/19/22 1330 Lab Status: Final result Specimen: Blood Updated: 08/24/22 1501 Blood Culture No growth at 5 days. Legionella Urinary Antigen [[id number]] Collected: 08/18/22 1013 Lab Status: Final result [...] Catheter Urine; Other; sepsis, bacteria on UA [[id number]] Collected: 08/15/22 1225 Lab Status: Final result Specimen: Indwelling Catheter Urine Updated: 08/16/22 0804 Urine Culture 1,000-9,000 cfu/ml Insignificant growth COVID-19 PCR [[id number]] Collected: 08/15/22 1150 Lab Status: Final result [...] using the [employer] COVID-19 Direct Assay by Apiary as authorized by the FDA issued Emergency [...] Department of Pathology and Laboratory Medicine at [facility], certified under the Clinical Laboratory Improvement Amendments [...] fact sheets at the following FDA website: https://www.fda.gov/medical-devices/bwdxftxipuj-blcyjxs-9341-muqek-41-gqhuopdzj- uun-feczhsklmzoslh-whgszgt-devices/wluos-jgxefgdczjn-svtm SARS-CoV-2 Source PLAN COORDINATOR Swab Lower Respiratory Culture Sputum Induced [[id number]] Collected: 08/15/22 0740 Lab Status: Final result Specimen: Sputum Induced Updated: 08/17/22 1015 Lower Respiratory Culture Rare normal upper respiratory wiley Gram Stain -- Many Neutrophils Few squamous epithelial cells Rare mixed bacterial morphotypes suggestive of normal upper respiratory wiley Blood culture [[id number]] Collected: 08/15/22 0110 Lab Status: Final result Specimen: Blood Updated: 08/20/22 0701 Blood Culture No growth at 5 days. MRSA PCR Screen ([facility]/CGP/APD/NLH) [[id number]] Collected: 08/15/22 0050 Lab Status: Final result Specimen: Nasopharyngeal Swab Updated: 08/17/22 1419 MRSA Result Negative MRSA Interp -- Methicillin-resistant Staphylococcus aureus (MRSA) is NOT DETECTED The MRSA target DNA sequences (mec and SCC) were not detected within the acceptable ranges using the Xpert MRSA NxG on the GeneXpert Dx System ([employer]). This suggests the absence of MRSA in the patient specimen submitted for testing. This test is cleared by the U.S. Food and Drug Administration for clinical use and its performance characteristics have been verified by the [facility] at [facility]. This result does not rule out the presence of any other organisms. Rare false negative results may occur if MRSA is present at low concentrations with much higher concentrations of other organisms including MRSE or S. aureus with an empty SCC cassette. Comment: [VERIFIED DATE]08.17.22 Verified By:Shannon Smiley (Electronic Signature) Blood culture [[id number]] Collected: 08/14/22 8043 Lab Status: Final result Specimen: Blood Updated: [...] who have questions please contact the health patient care technician instructor that requested your imaging first. Abdomen 1 [...] who have questions please contact the health patient care technician instructor that requested your imaging first. Chest One [...] who have questions please contact the health patient care technician instructor that requested your imaging first. Abdomen 1 [...] who have questions please contact the health patient care technician instructor that requested your imaging first. Chest One [...] who have questions please contact the health patient care technician instructor that requested your imaging first. Head wo [...] who have questions please contact the health patient care technician instructor that requested your imaging first. Electronically signed by: Moustapha Correa MD, [facility] ([phone]), at 08/16/2022 11:19 PM XR Abdomen 1 [...] who have questions please contact the health patient care technician instructor that requested your imaging first. Head wo Contrast (Generic) (Exam End: 08/18/2022 3:14 PM) Impression No acute intracranial process. Thank you for letting us participate in the care of this patient. If you are a health care provider and have any questions regarding this report, please contact the number below. For patients who have questions please contact the health patient care technician instructor that requested your imaging first. Chest One [...] who have questions please contact the health patient care technician instructor that requested your imaging first. Brain wo Contrast (Exam End: 08/19/2022 10:15 PM) Impression No acute infarction, mass or mass effect. Thank you for letting us participate in the care of this patient. If you are a health care provider and have any questions regarding this report, please contact the number below. For patients who have questions please contact the health patient care technician instructor that requested your imaging first. Chest for [...] who have questions please contact the health patient care technician instructor that requested your imaging first. Hip w [...] who have questions please contact the health patient care technician instructor that requested your imaging first. Electronically signed by: Aicha Chowdhury MD, [facility] ([phone]), at 08/21/2022 9:[address] Chest w [...] who have questions please contact the health patient care technician instructor that requested your imaging first. Hip 2-3 Views Left (Exam End: 08/22/2022 12:19 AM) Impression No radiographic evidence of infection. Thank you for letting us participate in the care of this patient. If you are a health care provider and have any questions regarding this report, please contact the number below. For patients who have questions please contact the health patient care technician instructor that requested your imaging first. Electronically signed by: Viktor Cervantes MD, [facility] ([phone]), at 08/22/2022 12:43 PM XR Pelvis (Generic) (Exam End: 08/22/2022 12:19 AM) Impression No radiographic evidence of infection status post left hip ORIF. Thank you for letting us participate in the care of this patient. If you are a health care provider and have any questions regarding this report, please contact the number below. For patients who have questions please contact the health patient care technician instructor that requested your imaging first. Electronically signed by: Richard Billings MD, [facility] ([phone]), at 08/22/2022 10:[address] Angiogram Coronary [...] who have questions please contact the health patient care technician instructor that requested your imaging first. Chest wo Contrast (Generic) (Exam End: 08/27/2022 8:58 AM) Impression Stable findings of multifocal pneumonia. No interval abnormality. Thank you for letting us participate in the care of this patient. If you are a health care provider and have any questions regarding this report, please contact the number below. For patients who have questions please contact the health patient care technician instructor that requested your imaging first. Fluoro Barium [...] who have questions please contact the health patient care technician instructor that requested your imaging first. Fluoro Barium [...] who have questions please contact the health patient care technician instructor that requested your imaging first. Abdomen 1 [...] who have questions please contact the health patient care technician instructor that requested your imaging first. Chest One [...] who have questions please contact the health patient care technician instructor that requested your imaging first. Chest One View (Exam End: 09/05/2022 9:24 AM) Impression 1. Reposition enteric tube now extending below the diaphragm and included [id number]. 2. Similar appearance of elevated right hemidiaphragm and linear/patchy bibasilar opacities which may represent atelectasis or possibly aspiration. Thank you for letting us participate in the care of this patient. If you are a health care provider and have any questions regarding this report, please contact the number below. For patients who have questions please contact the health patient care technician instructor that requested your imaging first. 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 Today's plan: - Continue tube feeds - Diabetes Team aware and titrating insulin accordingly - Surgery consulted for PEG placement today # Bipolar Disorder - Continue Seroquel 100mg nightly for now, patient and want it uptitrated before discharge - C/w valproate 300mg q6h - APPAREL SALES ASSOCIATE following, NPO at present - Psychiatry Consult, [...] Medicine PGY1 Medicine Team: Jose Juan, Pager #[phone] Date: 09/08/2022 Associated attestation - Molina Flores [...] of two midnights or is on the [facility] inpatient only procedure list (status C) [...] 4:51 PM EDT Speech-Language Pathology Contact Note: APPAREL SALES ASSOCIATE following for swallow, cognitive intervention. Discussed with nursing this AM, pending potential PEG today and NPO with TF held. TF restarted this PM but I was unable to return due to scheduling limitations. [employer]EL SALES ASSOCIATE team will follow up at later date for ongoing therapy, please secure chat/page withquestions/concerns. Thank you. Petty Mccullough M.S., [facility] Inpatient Speech-Pathology Pager: [phone] * Feroz Portillo, MARKETING DATABASE COORDINATOR - 09/07/2022 2:50 PM EDT Physical Therapy [...] anemia,??GERD??c/b??esophagitis &??Farrell's esophagus??presenting in transfer from [facility], suspected to be in cardiogenic shock and found to be in mixed shock with concern for stress cardiomyopathy. She is s/p ORIF left femoral neck fracture ~ 08/08 at OSH. Interval History: Moved to [facility], [facility] Social History: single level home [...] Code: TE-F x 3 FEROZ PORTILLOTEMITOPE Pager: [phone] Physical Therapy Inpatient Rehabilitation Department * Shanice Carrera, RD - 09/07/2022 2:38 PM EDT Nutrition Progress Note Ishan Irving is a 62 y.o.??female??with h/o bipolar, DM, EtOH, esophagitis, who presented to [facility] 3 days ago after being found unresponsive at home.?Patient found to have likely pneumonia +/- aspiration, newly reduced EF. Reason for Assessment: Tube Feeding, Follow-up Nutrition Recommendations: Enteral Nutrition: New: Cyclic Peptamen AF at 90ml/hr for 14 hrs from 7233-5009 (pended). At goal, this will provide: Peptamen AF Total Volume Per Day: 1260 mL Scoops of Protein: 0 Calories per Day: 1512 Protein per Day: 96 g Free Water mL per Day: 1023 % RDI: 101 % Monitor hydration status on above TFs as they are concentrated. Pt may need additional fluids depending on IVFs, med flushes, p.o. Intake, etc. Diet per [employer] SALES ASSOCIATE Continue 50,000 units vitamin D weekly; 1000 mcg folic acid and 100 mg thiamine daily. Monitor lytes. Replete as indicated Monitor BM. Goal of one every 24-48hrs while on EN Monitor weight to trend I was able to discuss plan with provider Murphy Manzano 3855 Current Nutrition Regimen: Active Orders Diet NPO diet (Give Meds) Frequency: Effective Now Number of Occurrences: Until Specified All Active TF Orders: Tubefeeding Orders (From admission, onward) Start Dose/Rate Route Frequency Ordered Stop 08/31/22 1745 tube feeding diet 1,320 mL 110 mL/hr Per NG tube Cyclic-(Tube feed) 08/31/22 1651 Cyclic Peptamen AF at 110ml/hr for 12hrs from 6374-1850 (see updated order above as of 09/07). [...] encounter: 64.1 kg (141 lb 5 oz). Almond Body Weight (IBW) (kg): 45.45 Usual Body [...] 08/25 r/t liquid tylenol, d/c per this procedure writer's request as liquid tylenol acts as [...] up while inpatient Shanice Carrera RD Pager #:[phone] * Elsie Erickson, CARDBOARD INSERTER - 09/07/2022 1:39 PM EDT Follow Up [...] anemia,??GERD??c/b??esophagitis &??Farrell's esophagus??presenting in transfer from [facility], suspected to be in cardiogenic shock [...] of 110 mls/hr Monitoring:??Q4 Elsie Erickson APRN [facility] Endocrinology Diabetes Management Pager [phone] 20 minutes of this 35 minute visit [...] RD??c/b??esophagitis &??Farrell's esophagus, who was admitted to [facility] on 08/14/2022 (now on Hospital Day [...] Molina Flores MD PCP: Chris Stanley APRN ([phone]) ID: Ishan Irving is a 62 y.o. 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.5 years) c/b chronic pancreatitis, iron deficiency anemia, ??GERD??c/b??esophagitis &??Farrell's esophagus, who was admitted to [facility] on 08/14/2022 (now on Hospital Day [...] CBC: Recent Labs 09/07/22 0030 09/06/22 0100 09/05/226 09/04/22 0026 09/03/22 0040 WBC 6.2 6.3 [...] Date/Time Lower Respiratory Culture Bronchial Alveolar Lavage [[id number]] Collected: 08/21/22 1650 Lab Status: Final result Specimen: Bronchial Alveolar Lavage Updated: 08/23/22 0741 Lower Respiratory Culture Rare mixed bacterial morphotypes suggestive of normal upper respiratory wiley Gram Stain -- Few Neutrophils seen No squamous epithelial cells seen No microorganisms seen. Fungus Culture & Calc Stain Bronchial Alveolar Lavage [[id number]] (Abnormal) Collected: 08/21/221649 Lab Status: Preliminary result Specimen: Bronchial Alveolar Lavage Updated: 08/24/22 1452 AFB culture Bronchial Alveolar Lavage [[id number]] Collected: 08/21/221649 Lab Status: Preliminary result Specimen: Bronchial Alveolar Lavage Updated: 08/24/22 2219 Acid Fast Bacilli Culture -- No Acid Fast Bacilli isolated to date If active tuberculosis is suspected, the patient should be on [employer] PRECA[employer]IONS. Call Infection Prevention for assistance if needed. Acid Fast Stain No Acid Fast Bacilli seen Fungus culture [[id number]] (Abnormal) Collected: 08/21/221649 Lab Status: Preliminary result Specimen: Bronchial Alveolar Lavage Updated: 08/24/22 145 Fungus Culture Rare Jacky albicans Calcofluor White Stain [[id number]] Collected: 08/21/221649 Lab Status: Final result Specimen: Bronchial Alveolar Lavage Updated: 08/21/22 2016 Calcofluor Stain Calcofluor White Preparation: Negative Lower Respiratory Culture Bronchial Alveolar Lavage [[id number]] Collected: 08/21/221644 Lab Status: Final result Specimen: Bronchial Alveolar Lavage Updated: 08/23/22 0741 Lower Respiratory Culture Rare mixed bacterial morphotypes suggestive of normal upper respiratory wiley Gram Stain -- Moderate Neutrophils seen No squamous epithelial cells seen No microorganisms seen. Fungus Culture & Calc Stain Bronchial Alveolar Lavage [[id number]] (Abnormal) Collected: 08/21/221644 Lab Status: Preliminary result Specimen: Bronchial Alveolar Lavage Updated: 08/24/22 1453 AFB culture Bronchial Alveolar Lavage [[id number]] Collected: 08/21/221644 Lab Status: Preliminary result Specimen: Bronchial Alveolar Lavage Updated: 08/24/22 2221 Acid Fast Bacilli Culture -- No Acid Fast Bacilli isolated to date If active tuberculosis is suspected, the patient should be on [employer] PRECA[employer]IONS. Call Infection Prevention for assistance if needed. Acid Fast Stain No Acid Fast Bacilli seen Fungus culture [[id number]] (Abnormal) Collected: 08/21/221644 Lab Status: Preliminary result Specimen: Bronchial Alveolar Lavage Updated: 08/24/22 145 Fungus Culture Rare Jacky albicans Calcofluor White Stain [[id number]] Collected: 08/21/221644 Lab Status: Final result Specimen: Bronchial Alveolar Lavage Updated: 08/21/22 2017 Calcofluor Stain Calcofluor White Preparation: Negative Blood culture [[id number]] Collected: 08/19/22 1720 Lab Status: Final result Specimen: Blood Updated: 08/24/22 2301 Blood Culture No growth at 5 days. Lower Respiratory Culture Sputum Induced [[id number]] Collected: 08/19/22 1451 Lab Status: Final result Specimen: Sputum Induced Updated: 08/21/22 0948 Lower Respiratory Culture Rare mixed bacterial morphotypes suggestive of normal upper respiratory wiley Gram Stain -- Many Neutrophils seen Few squamous epithelial cells seen No microorganisms seen. Blood culture [[id number]] Collected: 08/19/22 1330 Lab Status: Final result Specimen: Blood Updated: 08/24/22 1501 Blood Culture No growth at 5 days. Legionella Urinary Antigen [[id number]] Collected: 08/18/22 1013 Lab Status: Final result [...] Catheter Urine; Other; sepsis, bacteria on UA [[id number]] Collected: 08/15/22 1225 Lab Status: Final result Specimen: Indwelling Catheter Urine Updated: 08/16/22 0804 Urine Culture 1,000-9,000 cfu/ml Insignificant growth COVID-19 PCR [[id number]] Collected: 08/15/22 1150 Lab Status: Final result [...] using the Simplexa COVID-19 Direct Assay by [employer] as authorized by the FDA issued Emergency [...] Department of Pathology and Laboratory Medicine at [facility], certified under the Clinical Laboratory Improvement Amendments [...] fact sheets at the following FDA website: https://www.fda.gov/medical-devices/bbexdxlxyli-jdmyapi-9927-xtljm-93-nkorslarf- kpe-ckshkquevikyra-ojpkdqo-devices/azqii-eukxnnhvrwu-xqmn SARS-CoV-2 Source PLAN COORDINATOR Swab Lower Respiratory Culture Sputum Induced [[id number]] Collected: 08/15/22 0740 Lab Status: Final result Specimen: Sputum Induced Updated: 08/17/22 1015 Lower Respiratory Culture Rare normal upper respiratory wiley Gram Stain -- Many Neutrophils Few squamous epithelial cells Rare mixed bacterial morphotypes suggestive of normal upper respiratory wiley Blood culture [[id number]] Collected: 08/15/22 0110 Lab Status: Final result Specimen: Blood Updated: 08/20/22 0701 Blood Culture No growth at 5 days. MRSA PCR Screen ([facility]/CGP/APD/NLH) [[id number]] Collected: 08/15/22 0050 Lab Status: Final result Specimen: Nasopharyngeal Swab Updated: 08/17/22 1419 MRSA Result Negative MRSA Interp -- Methicillin-resistant Staphylococcus aureus (MRSA) is NOT DETECTED The MRSA target DNA sequences (mec and SCC) were not detected within the acceptable ranges using the Xpert MRSA NxG on the GeneXpert Dx System ([employer]). This suggests the absence of MRSA in the patient specimen submitted for testing. This test is cleared by the U.S. Food and Drug Administration for clinical use and its performance characteristics have been verified by the [facility] at [facility]. This result does not rule out the presence of any other organisms. Rare false negative results may occur if MRSA is present at low concentrations with much higher concentrations of other organisms including MRSE or S. aureus with an empty SCC cassette. Comment: [VERIFIED DATE]08.17.22 Verified By:Shannon Smiley (Electronic Signature) Blood culture [[id number]] Collected: 08/14/22 2351 Lab Status: Final result [...] who have questions please contact the health patient care technician instructor that requested your imaging first. Abdomen 1 [...] who have questions please contact the health patient care technician instructor that requested your imaging first. Chest One [...] who have questions please contact the health patient care technician instructor that requested your imaging first. Abdomen 1 [...] who have questions please contact the health patient care technician instructor that requested your imaging first. Chest One [...] who have questions please contact the health patient care technician instructor that requested your imaging first. Head wo [...] who have questions please contact the health patient care technician instructor that requested your imaging first. Electronically signed by: Moustapha Correa MD, [facility] ([phone]), at 08/16/2022 11:19 PM XR Abdomen 1 [...] who have questions please contact the health patient care technician instructor that requested your imaging first. Head wo Contrast (Generic) (Exam End: 08/18/2022 3:14 PM) Impression No acute intracranial process. Thank you for letting us participate in the care of this patient. If you are a health care provider and have any questions regarding this report, please contact the number below. For patients who have questions please contact the health patient care technician instructor that requested your imaging first. Chest One [...] who have questions please contact the health patient care technician instructor that requested your imaging first. Brain wo Contrast (Exam End: 08/19/2022 10:15 PM) Impression No acute infarction, mass or mass effect. Thank you for letting us participate in the care of this patient. If you are a health care provider and have any questions regarding this report, please contact the number below. For patients who have questions please contact the health patient care technician instructor that requested your imaging first. Chest for [...] who have questions please contact the health patient care technician instructor that requested your imaging first. Hip w [...] who have questions please contact the health patient care technician instructor that requested your imaging first. Electronically signed by: Aicha Chowdhury MD, [facility] ([phone]), at 08/21/2022 9:[address] Chest w [...] who have questions please contact the health patient care technician instructor that requested your imaging first. Hip 2-3 Views Left (Exam End: 08/22/2022 12:19 AM) Impression No radiographic evidence of infection. Thank you for letting us participate in the care of this patient. If you are a health care provider and have any questions regarding this report, please contact the number below. For patients who have questions please contact the health patient care technician instructor that requested your imaging first. Electronically signed by: Viktor Cervantes MD, [facility] ([phone]), at 08/22/2022 12:43 PM XR Pelvis (Generic) (Exam End: 08/22/2022 12:19 AM) Impression No radiographic evidence of infection status post left hip ORIF. Thank you for letting us participate in the care of this patient. If you are a health care provider and have any questions regarding this report, please contact the number below. For patients who have questions please contact the health patient care technician instructor that requested your imaging first. Electronically signed by: Richard Billings MD, [facility] ([phone]), at 08/22/2022 10:[address] Angiogram Coronary [...] who have questions please contact the health patient care technician instructor that requested your imaging first. Chest wo Contrast (Generic) (Exam End: 08/27/2022 8:58 AM) Impression Stable findings of multifocal pneumonia. No interval abnormality. Thank you for letting us participate in the care of this patient. If you are a health care provider and have any questions regarding this report, please contact the number below. For patients who have questions please contact the health patient care technician instructor that requested your imaging first. Fluoro Barium [...] who have questions please contact the health patient care technician instructor that requested your imaging first. Fluoro Barium [...] who have questions please contact the health patient care technician instructor that requested your imaging first. Abdomen 1 [...] who have questions please contact the health patient care technician instructor that requested your imaging first. Chest One [...] who have questions please contact the health patient care technician instructor that requested your imaging first. Chest One View (Exam End: 09/05/2022 9:24 AM) Impression 1. Reposition enteric tube now extending below the diaphragm and included [id number]-[id number]. 2. Similar appearance of elevated right hemidiaphragm and linear/patchy bibasilar opacities which may represent atelectasis or possibly aspiration. Thank you for letting us participate in the care of this patient. If you are a health care provider and have any questions regarding this report, please contact the number below. For patients who have questions please contact the health patient care technician instructor that requested your imaging first. Medications: Scheduled: [...] RD??c/b??esophagitis &??Farrell's esophagus, who was admitted to [facility] on 08/14/2022 (now on Hospital Day [...] them thatshe should continue to work with PT/OT/[employer]PAREL SALES ASSOCIATE/nursing but that the most recent assessments still recommended acute rehab. Today's plan: - Continue tube feeds - Diabetes Team aware and titrating insulin accordingly - IR consulted for PEG placement this week # Bipolar Disorder - Continue Seroquel 100mg nightly for now, patient and want it uptitrated before discharge - C/w valproate 300mg q6h - APPAREL SALES ASSOCIATE following, NPO at present - Psychiatry Consult, [...] Medicine PGY1 Medicine Team: Jose Juan, Pager #[phone] Date: 09/07/2022 Associated attestation - Molina Flores [...] of two midnights or is on the [facility] inpatient only procedure list (status C) [...] Richard Pascal MD PCP: Chris Stanley APRN ([phone]) ID: Ishan Irving is a 62 y.o. 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.5 years) c/b chronic pancreatitis, iron deficiency anemia, ??GERD??c/b??esophagitis &??Farrell's esophagus, who was admitted to [facility] on 08/14/2022 (now on Hospital Day [...] no rashes LABS: CBC: Recent Labs 09/06/220 09/05/2210509/04/22 0026 09/03/22 0040 09/02/22 0105 WBC 6.3 4.9 6.7 5.1 5.9 HGB 8.6* 8.7* 8.5* 8.4* 8.3* HCT 29.0* 29.0* 28.1* 27.1* 27.7* PLATELET 297 314 300 305 344 NEUTROABS 2.64 1.88 4.05 2.19 2.83 Retic count 09/02: 2.2% (high normal), Retic hgb 22.9% (low), immature Retic 45% (very high), absolute 0.08 (normal range) Chemistry: Recent Labs 09/06/220 09/05/226 09/04/22 0026 09/03/22 0040 09/02/22 0105 NA [...] Date/Time Lower Respiratory Culture Bronchial Alveolar Lavage [[id number]] Collected: 08/21/221649 Lab Status: Final result Specimen: Bronchial Alveolar Lavage Updated: 08/23/22 0741 Lower Respiratory Culture Rare mixed bacterial morphotypes suggestive of normal upper respiratory wiley Gram Stain -- Few Neutrophils seen No squamous epithelial cells seen No microorganisms seen. Fungus Culture & Calc Stain Bronchial Alveolar Lavage [[id number]] (Abnormal) Collected: 08/21/221649 Lab Status: Preliminary result Specimen: Bronchial Alveolar Lavage Updated: 08/24/22 145 AFB culture Bronchial Alveolar Lavage [[id number]] Collected: 08/21/221649 Lab Status: Preliminary result Specimen: Bronchial Alveolar Lavage Updated: 08/24/22 221 Acid Fast Bacilli Culture -- No Acid Fast Bacilli isolated to date If active tuberculosis is suspected, the patient should be on [employer] PRECAUTIONS. Call Infection Prevention for assistance if needed. Acid Fast Stain No Acid Fast Bacilli seen Fungus culture [[id number]] (Abnormal) Collected: 08/21/221649 Lab Status: Preliminary result Specimen: Bronchial Alveolar Lavage Updated: 08/24/22 145 Fungus Culture Rare Jacky albicans Calcofluor White Stain [[id number]] Collected: 08/21/221649 Lab Status: Final result Specimen: Bronchial Alveolar Lavage Updated: 08/21/222015 Calcofluor Stain Calcofluor White Preparation: Negative Lower Respiratory Culture Bronchial Alveolar Lavage [[id number]] Collected: 08/21/221644 Lab Status: Final result Specimen: Bronchial Alveolar Lavage Updated: 08/23/22 0741 Lower Respiratory Culture Rare mixed bacterial morphotypes suggestive of normal upper respiratory wiley Gram Stain -- Moderate Neutrophils seen No squamous epithelial cells seen No microorganisms seen. Fungus Culture & Calc Stain Bronchial Alveolar Lavage [[id number]] (Abnormal) Collected: 08/21/221644 Lab Status: Preliminary result Specimen: Bronchial Alveolar Lavage Updated: 08/24/22 145 AFB culture Bronchial Alveolar Lavage [[id number]] Collected: 08/21/221644 Lab Status: Preliminary result Specimen: Bronchial Alveolar Lavage Updated: 08/24/22 2221 Acid Fast Bacilli Culture -- No Acid Fast Bacilli isolated to date If active tuberculosis is suspected, the patient should be on [employer] PRECAUTIONS. Call Infection Prevention for assistance if needed. Acid Fast Stain No Acid Fast Bacilli seen Fungus culture [[id number]] (Abnormal) Collected: 08/21/22 1645 Lab Status: Preliminary result Specimen: Bronchial Alveolar Lavage Updated: 08/24/22 1453 Fungus Culture Rare Jacky albicans Calcofluor White Stain [[id number]] Collected: 08/21/22 164 Lab Status: Final result Specimen: Bronchial Alveolar Lavage Updated: 08/21/22 2017 Calcofluor Stain Calcofluor White Preparation: Negative Blood culture [[id number]] Collected: 08/19/22 1720 Lab Status: Final result Specimen: Blood Updated: 08/24/22 2301 Blood Culture No growth at 5 days. Lower Respiratory Culture Sputum Induced [[id number]] Collected: 08/19/22 1451 Lab Status: Final result Specimen: Sputum Induced Updated: 08/21/22 0948 Lower Respiratory Culture Rare mixed bacterial morphotypes suggestive of normal upper respiratory wiley Gram Stain -- Many Neutrophils seen Few squamous epithelial cells seen No microorganisms seen. Blood culture [[id number]] Collected: 08/19/22 1330 Lab Status: Final result Specimen: Blood Updated: 08/24/22 1501 Blood Culture No growth at 5 days. Legionella Urinary Antigen [[id number]] Collected: 08/18/22 1013 Lab Status: Final result [...] Catheter Urine; Other; sepsis, bacteria on UA [[id number]] Collected: 08/15/22 1225 Lab Status: Final result Specimen: Indwelling Catheter Urine Updated: 08/16/22 0804 Urine Culture 1,000-9,000 cfu/ml Insignificant growth COVID-19 PCR [[id number]] Collected: 08/15/22 1150 Lab Status: Final result [...] using the Simplexa COVID-19 Direct Assay by Apiary as authorized by the FDA issued Emergency [...] Department of Pathology and Laboratory Medicine at [facility], certified under the Clinical Laboratory Improvement Amendments [...] fact sheets at the following FDA website: https://www.fda.gov/medical-devices/lgxpyessazi-ziaipri-1275-tnocc-83-inacypjud- wwg-bucddccjdngmtl-cclsymj-devices/nqgtk-ytuwckqtjyd-nhxl SARS-CoV-2 Source PLAN COORDINATOR Swab Lower Respiratory Culture Sputum Induced [[id number]] Collected: 08/15/22 0740 Lab Status: Final result Specimen: Sputum Induced Updated: 08/17/22 1015 Lower Respiratory Culture Rare normal upper respiratory wiley Gram Stain -- Many Neutrophils Few squamous epithelial cells Rare mixed bacterial morphotypes suggestive of normal upper respiratory wiley Blood culture [[id number]] Collected: 08/15/22 0110 Lab Status: Final result Specimen: Blood Updated: 08/20/22 0701 Blood Culture No growth at 5 days. MRSA PCR Screen ([facility]/CGP/APD/NLH) [[id number]] Collected: 08/15/22 0050 Lab Status: Final result Specimen: Nasopharyngeal Swab Updated: 08/17/22 1419 MRSA Result Negative MRSA Interp -- Methicillin-resistant Staphylococcus aureus (MRSA) is NOT DETECTED The MRSA target DNA sequences (mec and SCC) were not detected within the acceptable ranges using the Xpert MRSA NxG on the GeneXpert Dx System ([employer]). This suggests the absence of MRSA in the patient specimen submitted for testing. This test is cleared by the U.S. Food and Drug Administration for clinical use and its performance characteristics have been verified by the [facility] at [facility]. This result does not rule out the presence of any other organisms. Rare false negative results may occur if MRSA is present at low concentrations with much higher concentrations of other organisms including MRSE or S. aureus with an empty SCC cassette. Comment: [VERIFIED DATE]08.17.22 Verified By:Shannon Smiley (Electronic Signature) Blood culture [[id number]] Collected: 08/14/22 2355 Lab Status: Final result [...] who have questions please contact the health patient care technician instructor that requested your imaging first. Abdomen 1 [...] who have questions please contact the health patient care technician instructor that requested your imaging first. Chest One [...] who have questions please contact the health patient care technician instructor that requested your imaging first. Abdomen 1 [...] who have questions please contact the health patient care technician instructor that requested your imaging first. Chest One [...] who have questions please contact the health patient care technician instructor that requested your imaging first. Head wo [...] who have questions please contact the health patient care technician instructor that requested your imaging first. Electronically signed by: Moustapha Correa MD, [facility] ([phone]), at 08/16/2022 11:19 PM XR Abdomen 1 [...] who have questions please contact the health patient care technician instructor that requested your imaging first. Head wo Contrast (Generic) (Exam End: 08/18/2022 3:14 PM) Impression No acute intracranial process. Thank you for letting us participate in the care of this patient. If you are a health care provider and have any questions regarding this report, please contact the number below. For patients who have questions please contact the health patient care technician instructor that requested your imaging first. Chest One [...] who have questions please contact the health patient care technician instructor that requested your imaging first. Brain wo Contrast (Exam End: 08/19/2022 10:15 PM) Impression No acute infarction, mass or mass effect. Thank you for letting us participate in the care of this patient. If you are a health care provider and have any questions regarding this report, please contact the number below. For patients who have questions please contact the health patient care technician instructor that requested your imaging first. Chest for [...] who have questions please contact the health patient care technician instructor that requested your imaging first. Hip w [...] who have questions please contact the health patient care technician instructor that requested your imaging first. Electronically signed by: Aicha Chowdhury MD, [facility] ([phone]), at 08/21/2022 9:[address] Chest w [...] who have questions please contact the health patient care technician instructor that requested your imaging first. Hip 2-3 Views Left (Exam End: 08/22/2022 12:19 AM) Impression No radiographic evidence of infection. Thank you for letting us participate in the care of this patient. If you are a health care provider and have any questions regarding this report, please contact the number below. For patients who have questions please contact the health patient care technician instructor that requested your imaging first. Electronically signed by: Viktor Cervantes MD, [facility] ([phone]), at 08/22/2022 12:43 PM XR Pelvis (Generic) (Exam End: 08/22/2022 12:19 AM) Impression No radiographic evidence of infection status post left hip ORIF. Thank you for letting us participate in the care of this patient. If you are a health care provider and have any questions regarding this report, please contact the number below. For patients who have questions please contact the health patient care technician instructor that requested your imaging first. Electronically signed by: Richard Billings MD, [facility] ([phone]), at 08/22/2022 10:[address] Angiogram Coronary [...] who have questions please contact the health patient care technician instructor that requested your imaging first. Chest wo Contrast (Generic) (Exam End: 08/27/2022 8:58 AM) Impression Stable findings of multifocal pneumonia. No interval abnormality. Thank you for letting us participate in the care of this patient. If you are a health care provider and have any questions regarding this report, please contact the number below. For patients who have questions please contact the health patient care technician instructor that requested your imaging first. Fluoro Barium [...] who have questions please contact the health patient care technician instructor that requested your imaging first. Fluoro Barium [...] who have questions please contact the health patient care technician instructor that requested your imaging first. Abdomen 1 [...] who have questions please contact the health patient care technician instructor that requested your imaging first. Chest One [...] who have questions please contact the health patient care technician instructor that requested your imaging first. Chest One View (Exam End: 09/05/2022 9:24 AM) Impression 1. Reposition enteric tube now extending below the diaphragm and included [id number]. 2. Similar appearance of elevated right hemidiaphragm and linear/patchy bibasilar opacities which may represent atelectasis or possibly aspiration. Thank you for letting us participate in the care of this patient. If you are a health care provider and have any questions regarding this report, please contact the number below. For patients who have questions please contact the health patient care technician instructor that requested your imaging first. 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 Today's plan: - Tube feeds at goal - Diabetes Team aware and titrating insulin accordingly - bridle NG tube to ensure do not need to replace NG before PEG # Bipolar Disorder - Continue Seroquel 100mg nightly - C/w valproate 300mg q6h > level 25mg/L 08/29 - [employer] following, NPO at present - Psychiatry Consult, [...] Medicine PGY2 Medicine Team: Jose Juan, Pager #[phone] Date: 09/06/2022 Associated attestation - Richard Pascal [...] of two midnights or is on the [facility] inpatient only procedure list (status C) [...] study was performed by an ultrasound credentialed [facility] medicine physician. These images were archived digitally in [employer] and I independently interpreted the images at [...] RD??c/b??esophagitis &??Farrell's esophagus, who was admitted to [facility] on 08/14/2022 (now on Hospital Day [...] Richard Pascal MD PCP: Chris Stanley APRN ([phone]) No chief complaint on file. ID: Ishan Irving is a 62 y.o. 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.5 years) c/b chronic pancreatitis, iron deficiency anemia, ??GERD??c/b??esophagitis &??Farrell's esophagus, who was admitted to [facility] on 08/14/2022 (now on Hospital Day [...] Gas): No results found for: PHART, PO2ART, VIE2DGZ, REM3YGY VBG (Venous Blood Gas): No results for input(s): PHVEN, PVM0CYA, PO2VEN, JYQ7LAR, BEVEN, RAG4INF in the last 72 hours. EKG: Lab [...] Date/Time Lower Respiratory Culture Bronchial Alveolar Lavage [[id number]] Collected: 08/21/221649 Lab Status: Final result Specimen: Bronchial Alveolar Lavage Updated: 08/23/22 0741 Lower Respiratory Culture Rare mixed bacterial morphotypes suggestive of normal upper respiratory wiley Gram Stain -- Few Neutrophils seen No squamous epithelial cells seen No microorganisms seen. Fungus Culture & Calc Stain Bronchial Alveolar Lavage [[id number]] (Abnormal) Collected: 08/21/221649 Lab Status: Preliminary result Specimen: Bronchial Alveolar Lavage Updated: 08/24/22 145 AFB culture Bronchial Alveolar Lavage [[id number]] Collected: 08/21/221649 Lab Status: Preliminary result Specimen: Bronchial Alveolar Lavage Updated: 08/24/22 221 Acid Fast Bacilli Culture -- No Acid Fast Bacilli isolated to date If active tuberculosis is suspected, the patient should be on [employer] PRECAUTIONS. Call Infection Prevention for assistance if needed. Acid Fast Stain No Acid Fast Bacilli seen Fungus culture [[id number]] (Abnormal) Collected: 08/21/221649 Lab Status: Preliminary result Specimen: Bronchial Alveolar Lavage Updated: 08/24/221451 Fungus Culture Rare Jacky albicans Calcofluor White Stain [[id number]] Collected: 08/21/221649 Lab Status: Final result Specimen: Bronchial Alveolar Lavage Updated: 08/21/222015 Calcofluor Stain Calcofluor White Preparation: Negative Lower Respiratory Culture Bronchial Alveolar Lavage [[id number]] Collected: 08/21/221644 Lab Status: Final result Specimen: Bronchial Alveolar Lavage Updated: 08/23/2241 Lower Respiratory Culture Rare mixed bacterial morphotypes suggestive of normal upper respiratory wiley Gram Stain -- Moderate Neutrophils seen No squamous epithelial cells seen No microorganisms seen. Fungus Culture & Calc Stain Bronchial Alveolar Lavage [[id number]] (Abnormal) Collected: 08/21/221644 Lab Status: Preliminary result Specimen: Bronchial Alveolar Lavage Updated: 08/24/22 145 AFB culture Bronchial Alveolar Lavage [[id number]] Collected: 08/21/221644 Lab Status: Preliminary result Specimen: Bronchial Alveolar Lavage Updated: 08/24/22 2221 Acid Fast Bacilli Culture -- No Acid Fast Bacilli isolated to date If active tuberculosis is suspected, the patient should be on [employer] PRECAUTIONS. Call Infection Prevention for assistance if needed. Acid Fast Stain No Acid Fast Bacilli seen Fungus culture [[id number]] (Abnormal) Collected: 08/21/22 1645 Lab Status: Preliminary result Specimen: Bronchial Alveolar Lavage Updated: 08/24/22 1453 Fungus Culture Rare Jacky albicans Calcofluor White Stain [[id number]] Collected: 08/21/22 1645 Lab Status: Final result Specimen: Bronchial Alveolar Lavage Updated: 08/21/22 2017 Calcofluor Stain Calcofluor White Preparation: Negative Blood culture [[id number]] Collected: 08/19/22 1720 Lab Status: Final result Specimen: Blood Updated: 08/24/22 2301 Blood Culture No growth at 5 days. Lower Respiratory Culture Sputum Induced [[id number]] Collected: 08/19/22 1451 Lab Status: Final result Specimen: Sputum Induced Updated: 08/21/22 0948 Lower Respiratory Culture Rare mixed bacterial morphotypes suggestive of normal upper respiratory wiley Gram Stain -- Many Neutrophils seen Few squamous epithelial cells seen No microorganisms seen. Blood culture [[id number]] Collected: 08/19/22 1330 Lab Status: Final result Specimen: Blood Updated: 08/24/22 1501 Blood Culture No growth at 5 days. Legionella Urinary Antigen [[id number]] Collected: 08/18/22 1013 Lab Status: Final result [...] Catheter Urine; Other; sepsis, bacteria on UA [[id number]] Collected: 08/15/22 1225 Lab Status: Final result Specimen: Indwelling Catheter Urine Updated: 08/16/22 0804 Urine Culture 1,000-9,000 cfu/ml Insignificant growth COVID-19 PCR [[id number]] Collected: 08/15/22 1150 Lab Status: Final result [...] using the Simplexa COVID-19 Direct Assay by Apiary as authorized by the FDA issued Emergency [...] Department of Pathology and Laboratory Medicine at [facility], certified under the Clinical Laboratory Improvement Amendments [...] fact sheets at the following FDA website: https://www.fda.gov/medical-devices/ihqgasgttwu-bzbbpcj-1160-mvyab-96-stwtojhgk- hju-bcppdgwlqhdybi-qsyuahc-devices/avqcp-ukcexplcfvy-rvrx SARS-CoV-2 Source PLAN COORDINATOR Swab Lower Respiratory Culture Sputum Induced [[id number]] Collected: 08/15/22 0740 Lab Status: Final result Specimen: Sputum Induced Updated: 08/17/22 1015 Lower Respiratory Culture Rare normal upper respiratory wiley Gram Stain -- Many Neutrophils Few squamous epithelial cells Rare mixed bacterial morphotypes suggestive of normal upper respiratory wiley Blood culture [[id number]] Collected: 08/15/22 0110 Lab Status: Final result Specimen: Blood Updated: 08/20/22 0701 Blood Culture No growth at 5 days. MRSA PCR Screen ([facility]/CGP/APD/NLH) [[id number]] Collected: 08/15/22 0050 Lab Status: Final result Specimen: Nasopharyngeal Swab Updated: 08/17/22 1419 MRSA Result Negative MRSA Interp -- Methicillin-resistant Staphylococcus aureus (MRSA) is NOT DETECTED The MRSA target DNA sequences (mec and SCC) were not detected within the acceptable ranges using the Xpert MRSA NxG on the GeneXpert Dx System ([employer]). This suggests the absence of MRSA in the patient specimen submitted for testing. This test is cleared by the U.S. Food and Drug Administration for clinical use and its performance characteristics have been verified by the [facility] at [facility]. This result does not rule out the presence of any other organisms. Rare false negative results may occur if MRSA is present at low concentrations with much higher concentrations of other organisms including MRSE or S. aureus with an empty SCC cassette. Comment: [VERIFIED DATE]08.17.22 Verified By:Shannon Smiley (Electronic Signature) Blood culture [[id number]] Collected: 08/14/22 2355 Lab Status: Final result [...] who have questions please contact the health patient care technician instructor that requested your imaging first. Abdomen 1 [...] who have questions please contact the health patient care technician instructor that requested your imaging first. Chest One [...] who have questions please contact the health patient care technician instructor that requested your imaging first. Abdomen 1 [...] who have questions please contact the health patient care technician instructor that requested your imaging first. Chest One [...] who have questions please contact the health patient care technician instructor that requested your imaging first. Head wo [...] who have questions please contact the health patient care technician instructor that requested your imaging first. Electronically signed by: Moustapha Correa MD, [facility] ([phone]), at 08/16/2022 11:19 PM XR Abdomen 1 [...] who have questions please contact the health patient care technician instructor that requested your imaging first. Head wo Contrast (Generic) (Exam End: 08/18/2022 3:14 PM) Impression No acute intracranial process. Thank you for letting us participate in the care of this patient. If you are a health care provider and have any questions regarding this report, please contact the number below. For patients who have questions please contact the health patient care technician instructor that requested your imaging first. Chest One [...] who have questions please contact the health patient care technician instructor that requested your imaging first. Brain wo Contrast (Exam End: 08/19/2022 10:15 PM) Impression No acute infarction, mass or mass effect. Thank you for letting us participate in the care of this patient. If you are a health care provider and have any questions regarding this report, please contact the number below. For patients who have questions please contact the health patient care technician instructor that requested your imaging first. Chest for [...] who have questions please contact the health patient care technician instructor that requested your imaging first. Hip w [...] who have questions please contact the health patient care technician instructor that requested your imaging first. Electronically signed by: Aicha Chowdhury MD, [facility] ([phone]), at 08/21/2022 9:[address] Chest w [...] who have questions please contact the health patient care technician instructor that requested your imaging first. Hip 2-3 Views Left (Exam End: 08/22/2022 12:19 AM) Impression No radiographic evidence of infection. Thank you for letting us participate in the care of this patient. If you are a health care provider and have any questions regarding this report, please contact the number below. For patients who have questions please contact the health patient care technician instructor that requested your imaging first. Electronically signed by: Viktor Cervantes MD, [facility] ([phone]), at 08/22/2022 12:43 PM XR Pelvis (Generic) (Exam End: 08/22/2022 12:19 AM) Impression No radiographic evidence of infection status post left hip ORIF. Thank you for letting us participate in the care of this patient. If you are a health care provider and have any questions regarding this report, please contact the number below. For patients who have questions please contact the health patient care technician instructor that requested your imaging first. Electronically signed by: Richard Billings MD, [facility] ([phone]), at 08/22/2022 10:[address] Angiogram Coronary [...] who have questions please contact the health patient care technician instructor that requested your imaging first. Chest wo Contrast (Generic) (Exam End: 08/27/2022 8:58 AM) Impression Stable findings of multifocal pneumonia. No interval abnormality. Thank you for letting us participate in the care of this patient. If you are a health care provider and have any questions regarding this report, please contact the number below. For patients who have questions please contact the health patient care technician instructor that requested your imaging first. Fluoro Barium [...] who have questions please contact the health patient care technician instructor that requested your imaging first. Fluoro Barium [...] who have questions please contact the health patient care technician instructor that requested your imaging first. Abdomen 1 [...] who have questions please contact the health patient care technician instructor that requested your imaging first. Chest One [...] who have questions please contact the health patient care technician instructor that requested your imaging first. Medications: Scheduled: [...] anemia,??GERD??c/b??esophagitis &??Farrell's esophagus, who was admitted to [facility] on 08/14/2022 (now on Hospital Day [...] level 08/29. - level 25mg/L 08/29 - APPAREL SALES ASSOCIATE to evaluate, Recommend NPO at present - [...] Medicine PGY1 Medicine Team: Jose Juan, Pager #[phone] Date: 09/05/2022 Associated attestation - Richard Pascal [...] of two midnights or is on the [facility] inpatient only procedure list (status C) [...] in the recent past. * Elsie Erickson, VAUGHN - 09/05/2022 7:10 AM EDT Follow Up [...] anemia,??GERD??c/b??esophagitis &??Farrell's esophagus??presenting in transfer from [facility], suspected to be in cardiogenic shock [...] of 110 mls/hr Monitoring:??Q4 Elsie Erickson APRN [facility] Endocrinology Diabetes Management Pager [phone] 20 minutes of this 35 minute visit was spent with the patient in counseling on diabetes and treatment plan, reviewing all glucose and insulin data as well as relevant laboratory results with the patient, and coordination of care on the inpatient unit including nursing and primary team. * Feroz Portillo, MARKETING DATABASE COORDINATOR - 09/04/2022 1:50 PM EDT Physical Therapy Note Treatment Number PT: 8 Patient profile: Ishan Irving is a 62 y.o. female admitted on 08/14/2022 with a medical history notable for??recent L femoral neck fracture,??bipolar disorder, resolving medication-induced Parkinsonism, insulin-dependent diabetes mellitus,??hx of alcohol use disorder (reported to be in remission for 1.5 years) c/b chronic pancreatitis, iron deficiency anemia,??GERD??c/b??esophagitis &??Farrlel's esophagus??presenting in transfer from [facility], suspected to be in cardiogenic shock [...] TE-F x 3 FEROZ PORTILLO PTA Pager: [phone] Physical Therapy Inpatient Rehabilitation Department * Micheline Long, APPAREL SALES ASSOCIATE - 09/04/2022 9:48 AM EDT Speech-Language Pathology Modified Barium Swallow Re-Evaluation ?? Patient Profile:??Ishan Irving is a 62 year old female with a medical history notable for??recent L femoral neck fracture,??bipolar disorder, resolving medication-induced Parkinsonism, insulin-dependent diabetes mellitus,??hx of alcohol use disorder (reported to be in remission for 1.5 years)c/b chronic pancreatitis, iron deficiency anemia,??GERD??c/b??esophagitis &??Farrell's esophagus??presenting in transfer from [facility]??on 08/14/2022, suspected to be in cardiogenic shock and found to be in mixed shock with concern for stress cardiomyopathy.??APPAREL SALES ASSOCIATE service was consulted to assess oropharyngeal swallow [...] Barium Swallow Study (08/31/2022) - Petty Mccullough, APPAREL SALES ASSOCIATE ??? Audible aspiration with thin liquids by [...] nutrition/hydration to provide nutrition during rehab course. APPAREL SALES ASSOCIATE will f/u for ongoing swallow intervention and [...] dependent Cognitive-Linguistic Status: delayed processing per primary APPAREL SALES ASSOCIATE; Pt presented today with a flat affect, [...] Presentation(s): (all mixed with Barium) Thin liquid [address] consistency thickened liquid Puree Regular consistency Oral [...] head in the, Thin liquid: pyriform sinuses [address] thick liquid: valleculae Puree: valleculae Regular: valleculae [...] penetration, via straw (sequential sips)- audible aspiration [address] thick liquids: via straw (single and sequential [...] of alertness and/or delirium Advanced age Education: APPAREL SALES ASSOCIATE informed pt that she would return to talk to her about the results and updated recommendations. Results and recommendations relayed to Irwin Jones MD via secure chat. Addendum: APPAREL SALES ASSOCIATE returned to pt's room at 1230 to [...] agreement with the treatment plan and informed APPAREL SALES ASSOCIATE of her continued goal to resume consuming [...] this regurgitation was also witnessed by primary APPAREL SALES ASSOCIATE Petty Mccullough in the most recent treatment session and was reported to the primary APPAREL SALES ASSOCIATE to be consistent with her baseline for [...] with trials of nectar thick liquids with APPAREL SALES ASSOCIATE only. As pt's mental status continues to improve, she may benefit from swallow exercises targeting the pharyngeal phase of the swallow. However, swallow safety and efficiency appear significantly impacted by the esophageal phase of the swallow. Pt will require alternative means of nutrition to meet nutritional needs. Pt would benefit from skilled APPAREL SALES ASSOCIATE services to maximize swallow function and safety to address limitations as noted above. Primary APPAREL SALES ASSOCIATE Petty Mccullough will continue to follow. Diagnosis: [...] in ongoing cognitive-linguistic evaluation. Plan: Therapy Frequency (APPAREL SALES ASSOCIATE Eval): 3-5x/wk Pt unable to give informed agreement with plan at this time due to decreased MS. Total Minutes (Speech Language Pathology): 30 Thank you for this consult with this patient. Please feel free to page me with any questions or concerns. Micheline Long, MS, [facility]ES ASSOCIATE Speech-Language Pathologist Pager # [phone] * Alla [...] Tenisha Sandy MD PCP: Chris Stanley APRN ([phone]) No chief complaint on file. ID: Ishan Irving is a 62 y.o. 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.5 years) c/b chronic pancreatitis, iron deficiency anemia, ??GERD??c/b??esophagitis &??Farrell's esophagus, who was admitted to [facility] on 08/14/2022 (now on Hospital Day #21), and transferred to Hospital Medicine team from Cardiology on 08/30 for mixed shock with concern for stress cardiomyopathy (Takotsubo Cardiomyopathy). 24 HOUR EVENTS & SUBJECTIVE: Yesterday: - APPAREL SALES ASSOCIATE evaluated, NPO, ice chips for pleasure recommended yesterday, plan for MBS without FT tomorrow - Palliative Care consulted and met with patient - OT met with patient, recommend acute rehab facility - Psych met with patient, recommended continuing once daily dosing of Bupropion IR - GI consulted and recommends patient continue working w/APPAREL SALES ASSOCIATE, can consider PEG if inadequate improvement - [...] Labs 09/04/22 0026 09/03/22 0040 09/02/22 0105 09/01/220 08/31/22 0430 WBC 6.7 5.1 5.9 5.5 6.7 HGB 8.5* 8.4* 8.3* 8.7* 8.7* HCT 28.1* 27.1* 27.7* 28.5* 29.2* PLATELET 300 305 344 361* 330 NEUTROABS 4.05 2.19 2.83 2.52 4.03 Retic count 09/02: 2.2% (high normal), Retic hgb 22.9% (low), immature Retic 45% (very high), absolute 0.08 (normal range) Chemistry: Recent Labs 09/04/22 0026 09/03/22 0040 09/02/225 09/01/2220908/30/22 0405 NA 141 138 136 140 140 [...] Gas): No results found for: PHART, PO2ART, EVD9JNG, MDM9ZAX VBG (Venous Blood Gas): No results for input(s): PHVEN, RTX6EWK, PO2VEN, BSP8QAO, BEVEN, PTC3HHI in the last 72 hours. EKG: Lab [...] Date/Time Lower Respiratory Culture Bronchial Alveolar Lavage [[id number]] Collected: 08/21/221649 Lab Status: Final result Specimen: Bronchial Alveolar Lavage Updated: 08/23/22 0741 Lower Respiratory Culture Rare mixed bacterial morphotypes suggestive of normal upper respiratory wiley Gram Stain -- Few Neutrophils seen No squamous epithelial cells seen No microorganisms seen. Fungus Culture & Calc Stain Bronchial Alveolar Lavage [[id number]] (Abnormal) Collected: 08/21/221649 Lab Status: Preliminary result Specimen: Bronchial Alveolar Lavage Updated: 08/24/22 145 AFB culture Bronchial Alveolar Lavage [[id number]] Collected: 08/21/221649 Lab Status: Preliminary result Specimen: Bronchial Alveolar Lavage Updated: 08/24/22 2219 Acid Fast Bacilli Culture -- No Acid Fast Bacilli isolated to date If active tuberculosis is suspected, the patient should be on [employer] PRECAUTIONS. Call Infection Prevention for assistance if needed. Acid Fast Stain No Acid Fast Bacilli seen Fungus culture [[id number]] (Abnormal) Collected: 08/21/221649 Lab Status: Preliminary result Specimen: Bronchial Alveolar Lavage Updated: 08/24/22 145 Fungus Culture Rare Jacky albicans Calcofluor White Stain [[id number]] Collected: 08/21/221649 Lab Status: Final result Specimen: Bronchial Alveolar Lavage Updated: 08/21/22 2016 Calcofluor Stain Calcofluor White Preparation: Negative Lower Respiratory Culture Bronchial Alveolar Lavage [[id number]] Collected: 08/21/22 164 Lab Status: Final result Specimen: Bronchial Alveolar Lavage Updated: 08/23/22 0741 Lower Respiratory Culture Rare mixed bacterial morphotypes suggestive of normal upper respiratory wiley Gram Stain -- Moderate Neutrophils seen No squamous epithelial cells seen No microorganisms seen. Fungus Culture & Calc Stain Bronchial Alveolar Lavage [[id number]] (Abnormal) Collected: 08/21/221644 Lab Status: Preliminary result Specimen: Bronchial Alveolar Lavage Updated: 08/24/22 145 AFB culture Bronchial Alveolar Lavage [[id number]] Collected: 08/21/221644 Lab Status: Preliminary result Specimen: Bronchial Alveolar Lavage Updated: 08/24/22 222 Acid Fast Bacilli Culture -- No Acid Fast Bacilli isolated to date If active tuberculosis is suspected, the patient should be on [employer] PRECAUTIONS. Call Infection Prevention for assistance if needed. Acid Fast Stain No Acid Fast Bacilli seen Fungus culture [[id number]] (Abnormal) Collected: 08/21/221644 Lab Status: Preliminary result Specimen: Bronchial Alveolar Lavage Updated: 08/24/22 145 Fungus Culture Rare Jacky albicans Calcofluor White Stain [[id number]] Collected: 08/21/221644 Lab Status: Final result Specimen: Bronchial Alveolar Lavage Updated: 08/21/22 2017 Calcofluor Stain Calcofluor White Preparation: Negative Blood culture [[id number]] Collected: 08/19/22 1720 Lab Status: Final result Specimen: Blood Updated: 08/24/22 2301 Blood Culture No growth at 5 days. Lower Respiratory Culture Sputum Induced [[id number]] Collected: 08/19/22 1451 Lab Status: Final result Specimen: Sputum Induced Updated: 08/21/22 0948 Lower Respiratory Culture Rare mixed bacterial morphotypes suggestive of normal upper respiratory wiley Gram Stain -- Many Neutrophils seen Few squamous epithelial cells seen No microorganisms seen. Blood culture [[id number]] Collected: 08/19/22 1330 Lab Status: Final result Specimen: Blood Updated: 08/24/22 1501 Blood Culture No growth at 5 days. Legionella Urinary Antigen [[id number]] Collected: 08/18/22 1013 Lab Status: Final result [...] Catheter Urine; Other; sepsis, bacteria on UA [[id number]] Collected: 08/15/22 1225 Lab Status: Final result Specimen: Indwelling Catheter Urine Updated: 08/16/22 0804 Urine Culture 1,000-9,000 cfu/ml Insignificant growth COVID-19 PCR [[id number]] Collected: 08/15/22 1150 Lab Status: Final result [...] using the Simplexa COVID-19 Direct Assay by Apiary as authorized by the FDA issued Emergency [...] Department of Pathology and Laboratory Medicine at [facility], certified under the Clinical Laboratory Improvement Amendments [...] fact sheets at the following FDA website: https://www.fda.gov/medical-devices/lgypwhwtyas-jcsydbl-8060-gnilf-72-haqzpkqpo- txv-jqhwujjyefydaa-jndbcuc-devices/scuep-mkgivqowhxu-tpdu SARS-CoV-2 Source PLAN COORDINATOR Swab Lower Respiratory Culture Sputum Induced [[id number]] Collected: 08/15/22 0740 Lab Status: Final result Specimen: Sputum Induced Updated: 08/17/22 1015 Lower Respiratory Culture Rare normal upper respiratory wiley Gram Stain -- Many Neutrophils Few squamous epithelial cells Rare mixed bacterial morphotypes suggestive of normal upper respiratory wiley Blood culture [[id number]] Collected: 08/15/22 0110 Lab Status: Final result Specimen: Blood Updated: 08/20/22 0701 Blood Culture No growth at 5 days. MRSA PCR Screen ([facility]/CGP/APD/NL) [[id number]] Collected: 08/15/22 0050 Lab Status: Final result Specimen: Nasopharyngeal Swab Updated: 08/17/22 1419 MRSA Result Negative MRSA Interp -- Methicillin-resistant Staphylococcus aureus (MRSA) is NOT DETECTED The MRSA target DNA sequences (mec and SCC) were not detected within the acceptable ranges using the Xpert MRSA NxG on the GeneXpert Dx System ([place]). This suggests the absence of MRSA in the patient specimen submitted for testing. This test is cleared by the U.S. Food and Drug Administration for clinical use and its performance characteristics have been verified by the [facility] at [facility]. This result does not rule out the presence of any other organisms. Rare false negative results may occur if MRSA is present at low concentrations with much higher concentrations of other organisms including MRSE or S. aureus with an empty SCC cassette. Comment: [VERIFIED DATE]08.17.22 Verified By:Shannon Smiley (Electronic Signature) Blood culture [[id number]] Collected: 08/14/22 3662 Lab Status: Final result Specimen: Blood Updated: [...] who have questions please contact the health patient care technician instructor that requested your imaging first. Abdomen 1 [...] who have questions please contact the health patient care technician instructor that requested your imaging first. Chest One [...] who have questions please contact the health patient care technician instructor that requested your imaging first. Abdomen 1 [...] who have questions please contact the health patient care technician instructor that requested your imaging first. Chest One [...] who have questions please contact the health patient care technician instructor that requested your imaging first. Head wo [...] who have questions please contact the health patient care technician instructor that requested your imaging first. Electronically signed by: Moustapha Correa MD, [facility] ([phone]), at 08/16/2022 11:19 PM XR Abdomen 1 [...] who have questions please contact the health patient care technician instructor that requested your imaging first. Head wo Contrast (Generic) (Exam End: 08/18/2022 3:14 PM) Impression No acute intracranial process. Thank you for letting us participate in the care of this patient. If you are a health care provider and have any questions regarding this report, please contact the number below. For patients who have questions please contact the health patient care technician instructor that requested your imaging first. Chest One [...] who have questions please contact the health patient care technician instructor that requested your imaging first. Brain wo Contrast (Exam End: 08/19/2022 10:15 PM) Impression No acute infarction, mass or mass effect. Thank you for letting us participate in the care of this patient. If you are a health care provider and have any questions regarding this report, please contact the number below. For patients who have questions please contact the health patient care technician instructor that requested your imaging first. Chest for [...] who have questions please contact the health patient care technician instructor that requested your imaging first. Hip w [...] who have questions please contact the health patient care technician instructor that requested your imaging first. Electronically signed by: Aicha Chowdhury MD, [facility] ([phone]), at 08/21/2022 9:[address] Chest w [...] who have questions please contact the health patient care technician instructor that requested your imaging first. Hip 2-3 Views Left (Exam End: 08/22/2022 12:19 AM) Impression No radiographic evidence of infection. Thank you for letting us participate in the care of this patient. If you are a health care provider and have any questions regarding this report, please contact the number below. For patients who have questions please contact the health patient care technician instructor that requested your imaging first. Electronically signed by: Viktor Cervantes MD, [facility] ([phone]), at 08/22/2022 12:43 PM XR Pelvis (Generic) (Exam End: 08/22/2022 12:19 AM) Impression No radiographic evidence of infection status post left hip ORIF. Thank you for letting us participate in the care of this patient. If you are a health care provider and have any questions regarding this report, please contact the number below. For patients who have questions please contact the health patient care technician instructor that requested your imaging first. Electronically signed by: Richard Billings MD, [facility] ([phone]), at 08/22/2022 10:[address] Angiogram Coronary [...] who have questions please contact the health patient care technician instructor that requested your imaging first. Chest wo Contrast (Generic) (Exam End: 08/27/2022 8:58 AM) Impression Stable findings of multifocal pneumonia. No interval abnormality. Thank you for letting us participate in the care of this patient. If you are a health care provider and have any questions regarding this report, please contact the number below. For patients who have questions please contact the health patient care technician instructor that requested your imaging first. Fluoro Barium [...] who have questions please contact the health patient care technician instructor that requested your imaging first. Electronically signed by: Aron Billings MD, [facility] ([phone]), at 08/31/2022 12:02 PM Medications: Scheduled: ??? [...] anemia,??GERD??c/b??esophagitis &??Farrell's esophagus, who was admitted to [facility] on 08/14/2022 (now on Hospital Day [...] - Continue therapy with PT, OT, and APPAREL SALES ASSOCIATE - Diet pending MBS results milvia Neuro: # Bipolar Disorder - Depakote 300 mg oral liquid per Dobhoff tube q6hr. - Continue Seroquel 100mg nightly - Will check VPA trough level 08/29. - level 25mg/L 08/29 - APPAREL SALES ASSOCIATE to evaluate, Recommend NPO at present - [...] Medicine PGY1 Medicine Team: Jose Juan, Pager #[phone] Date: 09/04/2022 Associated attestation - Tenisha Sandy [...] of two midnights or is on the [facility] inpatient only procedure list (status C) [...] improved with use of wellbutrin. Will continue APPAREL SALES ASSOCIATE and consider trial ofnectar thick with speech. * Alicia Cook, JENNIFER - 09/03/2022 1:40 PM EDT Occupational Therapy [...] anemia,??GERD??c/b??esophagitis &??Farrell's esophagus??presenting in transfer from [facility], suspected to be in cardiogenic shock [...] socks independently with legs on bed ?? [facility] brought bedside bed for stand pivot transfer. [...] 2-4 times/wk Total Minutes, Occupational Therapy: 44 [phone] TA) Pager: [phone] Alicia Cook OT 09/03/2022 Occupational Therapy Rehabilitation Department * Shashi Young - 09/03/2022 10:36 AM EDT Manager Trading Encounter Note Patient Name: Ishan Irving : [id number] MR#: [id number] Admit Date: 08/14/2022 11:11 PM Hospital Day [...] hands. Patient and her expressed appreciation. Follow-up: Potato Bucker will continue to offer support to patient as needed. Time in Direct Care: 15 Shashi Young 09/03/2022 * Nancy Ernst RD - 09/03/2022 8:27 AM EDT Nutrition Progress Note Ishan Irving is a 62 y.o.??female??with h/o bipolar, DM, EtOH, esophagitis, who presented to [facility] 3 days ago after being found unresponsive at home.?Patient found to have likely pneumonia +/- aspiration, newly reduced EF. Reason for Assessment: Follow-up, Tube Feeding Nutrition Recommendations: Enteral Nutrition: Cyclic Peptamen AF at 110ml/hr for 12hrs from [id number] At goal, this will provide: Peptamen AF Total Volume Per Day: 1320 mL Scoops of Protein: 0 Calories per Day: 1584 Protein per Day: 100 g Free Water mL per Day: 1072 % RDI: 106 % Monitor hydration status on above TFs as they are concentrated. Pt may need additional fluids depending on IVFs, med flushes, p.o. Intake, etc. Diet per APPAREL SALES ASSOCIATE Monitor weight to trend Monitor BM. Goal [...] Peptamen AF at 110ml/hr for 12hrs from 6110-6753 Average tube feeding provision over past 3 [...] of this encounter: 69.9 kg (154 lb). Almond Body Weight (IBW) (kg): 45.45 Usual Body [...] Assessed Needs: Fluid Requirements (mL/day): 2562 mL [place] Kcal / K - 1737.5 Kcal (20 [...] 08/25 r/t liquid tylenol, d/c per this procedure writer's request as liquid tylenol acts as [...] up while inpatient Nancy Ernst RD Pager #:[phone] * Petty Mccullough, APPAREL SALES ASSOCIATE - 09/03/2022 8:20 AM EDT Speech Therapy Note Patient Profile:??Ishan Irving is a 62 year old female with a medical history notable for??recent L femoral neck fracture,??bipolar disorder, resolving medication-induced Parkinsonism, insulin-dependent diabetes mellitus,??hx of alcohol use disorder (reported to be in remission for 1.5 years)c/b chronic pancreatitis, iron deficiency anemia,??GERD??c/b??esophagitis &??Farrell's esophagus??presenting in transfer from [facility]??on 08/14/2022, suspected to be in cardiogenic shock and found to be in mixed shock with concern for stress cardiomyopathy.??APPAREL SALES ASSOCIATE following for swallow, cognitive tx. MBS completed [...] Pt was seen today for a follow-up APPAREL SALES ASSOCIATE visit. ??? Oropharyngeal swallow function is reportedly [...] in ongoing cognitive-linguistic evaluation. Plan: Therapy Frequency (APPAREL SALES ASSOCIATE Eval): 3-5 times/wk Pt./family are in agreement with treatment plan. Total Minutes (Speech Language Pathology): 40 Petty Mccullough M.S., [facility]ES ASSOCIATE Inpatient Speech-Pathology Pager: [phone] * Irwin Jones MD - 09/03/2022 7:13 AM EDT Images from the original note were not included. Inpatient Hospital Medicine Progress Note 09/03/2022 Patient Name: ISHAN IRVING Date of : 1960 Age: 62 y.o. Hospital Admit Date: 08/14/2022 Hospital Day: 20 Inpatient Attending: Tenisha Sandy MD PCP: Chris Stanley APRN ([phone]) No chief complaint on file. ID: Ishan Irving is a 62 y.o. 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.5 years) c/b chronic pancreatitis, iron deficiency anemia, ??GERD??c/b??esophagitis &??Farrell's esophagus, who was admitted to [facility] on 08/14/2022 (now on Hospital Day #20), and transferred to Hospital Medicine team from Cardiology on 08/30 for mixed shock with concern for stress cardiomyopathy (Takotsubo Cardiomyopathy). 24 HOUR EVENTS & SUBJECTIVE: Yesterday: - APPAREL SALES ASSOCIATE evaluated, NPO, ice chips for pleasure recommended - Palliative Care consulted and met with patient - PT met with patient, recommend acute rehab versus swing bed when medically ready for discharge - Psych met with patient, recommended once daily dosing of Bupropion IR - GI consulted and recommends patient continue working w/APPAREL SALES ASSOCIATE, can consider PEG if inadequate improvement Overnight: [...] Gas): No results found for: PHART, PO2ART, IYD4RMZ, BMN0VEI VBG (Venous Blood Gas): No results for input(s): PHVEN, GCM7KXE, PO2VEN, EUN7VGC, BEVEN, NDG6DVS in the last 72 hours. EKG: Lab [...] Date/Time Lower Respiratory Culture Bronchial Alveolar Lavage [[id number]] Collected: 08/21/221649 Lab Status: Final result Specimen: Bronchial Alveolar Lavage Updated: 08/23/22 0741 Lower Respiratory Culture Rare mixed bacterial morphotypes suggestive of normal upper respiratory wiley Gram Stain -- Few Neutrophils seen No squamous epithelial cells seen No microorganisms seen. Fungus Culture & Calc Stain Bronchial Alveolar Lavage [[id number]] (Abnormal) Collected: 08/21/221649 Lab Status: Preliminary result Specimen: Bronchial Alveolar Lavage Updated: 08/24/22 145 AFB culture Bronchial Alveolar Lavage [[id number]] Collected: 08/21/221649 Lab Status: Preliminary result Specimen: Bronchial Alveolar Lavage Updated: 08/24/22 221 Acid Fast Bacilli Culture -- No Acid Fast Bacilli isolated to date If active tuberculosis is suspected, the patient should be on [employer] PRECAUTIONS. Call Infection Prevention for assistance if needed. Acid Fast Stain No Acid Fast Bacilli seen Fungus culture [[id number]] (Abnormal) Collected: 08/21/221649 Lab Status: Preliminary result Specimen: Bronchial Alveolar Lavage Updated: 08/24/22 145 Fungus Culture Rare Jacky albicans Calcofluor White Stain [[id number]] Collected: 08/21/221649 Lab Status: Final result Specimen: Bronchial Alveolar Lavage Updated: 08/21/22 2016 Calcofluor Stain Calcofluor White Preparation: Negative Lower Respiratory Culture Bronchial Alveolar Lavage [[id number]] Collected: 08/21/221644 Lab Status: Final result Specimen: Bronchial Alveolar Lavage Updated: 08/23/22 0741 Lower Respiratory Culture Rare mixed bacterial morphotypes suggestive of normal upper respiratory wiley Gram Stain -- Moderate Neutrophils seen No squamous epithelial cells seen No microorganisms seen. Fungus Culture & Calc Stain Bronchial Alveolar Lavage [[id number]] (Abnormal) Collected: 08/21/221644 Lab Status: Preliminary result Specimen: Bronchial Alveolar Lavage Updated: 08/24/22 145 AFB culture Bronchial Alveolar Lavage [[id number]] Collected: 08/21/221644 Lab Status: Preliminary result Specimen: Bronchial Alveolar Lavage Updated: 08/24/22 222 Acid Fast Bacilli Culture -- No Acid Fast Bacilli isolated to date If active tuberculosis is suspected, the patient should be on AIRBORNE PRECAUTIONS. Call Infection Prevention for assistance if needed. Acid Fast Stain No Acid Fast Bacilli seen Fungus culture [[id number]] (Abnormal) Collected: 08/21/221644 Lab Status: Preliminary result Specimen: Bronchial Alveolar Lavage Updated: 08/24/22 145 Fungus Culture Rare Jacky albicans Calcofluor White Stain [[id number]] Collected: 08/21/221644 Lab Status: Final result Specimen: Bronchial Alveolar Lavage Updated: 08/21/22 2017 Calcofluor Stain Calcofluor White Preparation: Negative Blood culture [[id number]] Collected: 08/19/22 1720 Lab Status: Final result Specimen: Blood Updated: 08/24/22 2301 Blood Culture No growth at 5 days. Lower Respiratory Culture Sputum Induced [[id number]] Collected: 08/19/22 1451 Lab Status: Final result Specimen: Sputum Induced Updated: 08/21/22 0948 Lower Respiratory Culture Rare mixed bacterial morphotypes suggestive of normal upper respiratory wiley Gram Stain -- Many Neutrophils seen Few squamous epithelial cells seen No microorganisms seen. Blood culture [[id number]] Collected: 08/19/22 1330 Lab Status: Final result Specimen: Blood Updated: 08/24/22 1501 Blood Culture No growth at 5 days. Legionella Urinary Antigen [[id number]] Collected: 08/18/22 1013 Lab Status: Final result [...] Catheter Urine; Other; sepsis, bacteria on UA [[id number]] Collected: 08/15/22 1225 Lab Status: Final result Specimen: Indwelling Catheter Urine Updated: 08/16/22 0804 Urine Culture 1,000-9,000 cfu/ml Insignificant growth COVID-19 PCR [[id number]] Collected: 08/15/22 1150 Lab Status: Final result [...] using the Simplexa COVID-19 Direct Assay by Apiary as authorized by the FDA issued Emergency [...] Department of Pathology and Laboratory Medicine at [facility], certified under the Clinical Laboratory Improvement Amendments [...] fact sheets at the following FDA website: https://www.fda.gov/medical-devices/piskigiiyxz-wabymne-8393-ktkpw-33-itiqrfkag- rph-wsugwdzrdpvpsq-qednocp-devices/ikdik-dmtcvabbsze-pagu SARS-CoV-2 Source PLAN COORDINATOR Swab Lower Respiratory Culture Sputum Induced [[id number]] Collected: 08/15/22 0740 Lab Status: Final result Specimen: Sputum Induced Updated: 08/17/22 1015 Lower Respiratory Culture Rare normal upper respiratory wiley Gram Stain -- Many Neutrophils Few squamous epithelial cells Rare mixed bacterial morphotypes suggestive of normal upper respiratory wiley Blood culture [[id number]] Collected: 08/15/22 0110 Lab Status: Final result Specimen: Blood Updated: 08/20/22 0701 Blood Culture No growth at 5 days. MRSA PCR Screen ([facility] [place]/CGP/APD/NLH) [[id number]] Collected: 08/15/22 0050 Lab Status: Final result Specimen: Nasopharyngeal Swab Updated: 08/17/22 1419 MRSA Result Negative MRSA Interp -- Methicillin-resistant Staphylococcus aureus (MRSA) is NOT DETECTED The MRSA target DNA sequences (mec and SCC) were not detected within the acceptable ranges using the Xpert MRSA NxG on the GeneXpert Dx System (Hunie). This suggests the absence of MRSA in the patient specimen submitted for testing. This test is cleared by the U.S. Food and Drug Administration for clinical use and its performance characteristics have been verified by the [facility] at [facility]. This result does not rule out the presence of any other organisms. Rare false negative results may occur if MRSA is present at low concentrations with much higher concentrations of other organisms including MRSE or S. aureus with an empty SCC cassette. Comment: [VERIFIED DATE]08.17.22 Verified By:Dokus, Shannon J. (Electronic Signature) Blood culture [[id number]] Collected: 08/14/22 0513 Lab Status: Final result Specimen: Blood Updated: [...] who have questions please contact the health patient care technician instructor that requested your imaging first. Abdomen 1 [...] who have questions please contact the health patient care technician instructor that requested your imaging first. Chest One [...] who have questions please contact the health patient care technician instructor that requested your imaging first. Abdomen 1 [...] who have questions please contact the health patient care technician instructor that requested your imaging first. Chest One [...] who have questions please contact the health patient care technician instructor that requested your imaging first. Head wo [...] who have questions please contact the health patient care technician instructor that requested your imaging first. Electronically signed by: Moustapha Correa MD, [facility] ([phone]), at 08/16/2022 11:19 PM XR Abdomen 1 [...] who have questions please contact the health patient care technician instructor that requested your imaging first. Head wo Contrast (Generic) (Exam End: 08/18/2022 3:14 PM) Impression No acute intracranial process. Thank you for letting us participate in the care of this patient. If you are a health care provider and have any questions regarding this report, please contact the number below. For patients who have questions please contact the health patient care technician instructor that requested your imaging first. Chest One [...] who have questions please contact the health patient care technician instructor that requested your imaging first. Brain wo Contrast (Exam End: 08/19/2022 10:15 PM) Impression No acute infarction, mass or mass effect. Thank you for letting us participate in the care of this patient. If you are a health care provider and have any questions regarding this report, please contact the number below. For patients who have questions please contact the health patient care technician instructor that requested your imaging first. Chest for [...] who have questions please contact the health patient care technician instructor that requested your imaging first. Hip w [...] who have questions please contact the health patient care technician instructor that requested your imaging first. Electronically signed by: Aicha Chowdhury MD, [facility] ([phone]), at 08/21/2022 9:[address] Chest w [...] who have questions please contact the health patient care technician instructor that requested your imaging first. Hip 2-3 Views Left (Exam End: 08/22/2022 12:19 AM) Impression No radiographic evidence of infection. Thank you for letting us participate in the care of this patient. If you are a health care provider and have any questions regarding this report, please contact the number below. For patients who have questions please contact the health patient care technician instructor that requested your imaging first. Electronically signed by: Viktor Cervantes MD, [facility] ([phone]), at 08/22/2022 12:43 PM XR Pelvis (Generic) (Exam End: 08/22/2022 12:19 AM) Impression No radiographic evidence of infection status post left hip ORIF. Thank you for letting us participate in the care of this patient. If you are a health care provider and have any questions regarding this report, please contact the number below. For patients who have questions please contact the health patient care technician instructor that requested your imaging first. Electronically signed by: Richard Billings MD, [facility] ([phone]), at 08/22/2022 10:[address] Angiogram Coronary [...] who have questions please contact the health patient care technician instructor that requested your imaging first. Chest wo Contrast (Generic) (Exam End: 08/27/2022 8:58 AM) Impression Stable findings of multifocal pneumonia. No interval abnormality. Thank you for letting us participate in the care of this patient. If you are a health care provider and have any questions regarding this report, please contact the number below. For patients who have questions please contact the health patient care technician instructor that requested your imaging first. Fluoro Barium [...] who have questions please contact the health patient care technician instructor that requested your imaging first. Medications: Scheduled: [...] anemia,??GERD??c/b??esophagitis &??Farrell's esophagus, who was admitted to [facility] on 08/14/2022 (now on Hospital Day [...] for a percutaneous feeding tube, discussed with APPAREL SALES ASSOCIATE and plan for MBS tomorrow, will remove dobhoff prior to minimize other factors worsening dysphagia. Today's plan: - Discuss wellbutrin dose with Yg - Consider dose of IV iron for additional supplementation to low stores - Ongoing therapy with PT, OT, and APPAREL SALES ASSOCIATE - Venofer x 1 to supplement oral iron for iron deficiency anemia milvia Neuro: # Bipolar Disorder - Depakote 300 mg oral liquid per Dobhoff tube q6hr. - Continue Seroquel 100mg nightly - Will check VPA trough level 08/29. - level 25mg/L 08/29 - APPAREL SALES ASSOCIATE to evaluate, Recommend NPO at present - [...] Medicine PGY1 Medicine Team: Jose Juan, Pager #[phone] Date: 09/03/2022 Associated attestation - Tenisha Sandy [...] of two midnights or is on the [facility] inpatient only procedure list (status C) due to: acute metabolic encephalopathy,management of nstemi/stress cardiomyopathy, s/p treatment of sepsis. Also management of IV fluids as patient is not able to tolerate any PO intake. Awaiting MBS. * Feroz Portillo, MARKETING DATABASE COORDINATOR - 09/02/2022 3:10 PM EDT Physical Therapy [...] anemia,??GERD??c/b??esophagitis &??Farrell's esophagus??presenting in transfer from [facility], suspected to be in cardiogenic shock and found to be in mixed shock with concern for stress cardiomyopathy. She is s/p ORIF left femoral neck fracture ~ 4/1 at OSH. Interval History: Uneventful Social History: [...] TE-F x 3 FEROZ PORTILLO PTA Pager: [phone] Physical Therapy Inpatient Rehabilitation Department * Tanya Figueroa, APPAREL SALES ASSOCIATE - 09/02/2022 2:09 PM EDT Speech Therapy Note Patient Profile:??Ishan Irving is a 62 year old female with a medical history notable for??recent L femoral neck fracture,??bipolar disorder, resolving medication-induced Parkinsonism, insulin-dependent diabetes mellitus,??hx of alcohol use disorder (reported to be in remission for 1.5 years)c/b chronic pancreatitis, iron deficiency anemia,??GERD??c/b??esophagitis &??Farrell's esophagus??presenting in transfer from [facility]??on 08/14/2022, suspected to be in cardiogenic shock and found to be in mixed shock with concern for stress cardiomyopathy.??APPAREL SALES ASSOCIATE following for swallow, cognitive tx. MBS completed 08/31/22 noting moderate-severe oropharyngeal dysphagia. Lines/Drains: DHT(08/17/22), PICC Precautions: Fall risk, Aspiration risk, Delirium and High risk skin breakdown Continuous Interventions: ??? tube feeding diet 110 mL/hr at 09/02/22 1200 Interval History: No significant changes. Per Resident notes, - PT evaluated and recommends swing bed - GI consulted and recommends patient continue working w/APPAREL SALES ASSOCIATE, can consider PEG if inadequate improvement Subjective: [...] puzzle, joining dot drawings. ?? Attempts to [place] words using word soto puzzles - denies any assistance form APPAREL SALES ASSOCIATE during this task. Searches 9 words independently [...] nutrition/hydration to provide nutrition during rehab course. APPAREL SALES ASSOCIATE will f/u for ongoing swallow and cognitive intervention. ?? Barium swallow (esophagram) will be helpful at later date (due to hx of Farrell's esophagus/GERD), however Pt is at high potential for aspiration during study d/t positioning requirements for this test. Likely will need a repeat MBS prior to ordering of barium swallow. ?? Pt would benefit from skilled APPAREL SALES ASSOCIATE services to maximize swallow function and safety [...] in ongoing cognitive-linguistic evaluation. Plan: Therapy Frequency (APPAREL SALES ASSOCIATE Eval): 2-4 times/wk Pt./family are in agreement with treatment plan. Total Minutes (Speech Language Pathology): 24 Thank you for this consult with this patient. Please feel free to page me with any questions or concerns. Tanya Figueroa MS, APPAREL SALES ASSOCIATE-CF Pager #[phone] Speech Language Pathology Inpatient Rehabilitation Medicine * Ghulam Torres MD - 09/02/2022 12:10 PM EDT Palliative super quick note Ran to catch antonio at bedside with Ishan. Introduced myself and palliative. Family welcoming to the support and visit. Antonio has to get home to [facility] to take care of their [...] patient and to make a call to [place] [employer] to submit claim for health related reasons. Patient gave verbal permission for me to speak with [employer] and we proceeded to walk through the process together. Patients will provide this procedure writer with documentation for the physician to [...] Tenisha Sandy MD PCP: Chris Stanley APRN ([phone]) No chief complaint on file. ID: Ishan Irving is a 62 y.o. 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.5 years) c/b chronic pancreatitis, iron deficiency anemia, ??GERD??c/b??esophagitis &??Farrell's esophagus, who was admitted to [facility] on 08/14/2022 (now on Hospital Day #19), and transferred to Hospital Medicine team from Cardiology on 08/30 for mixed shock with concern for stress cardiomyopathy (Takotsubo Cardiomyopathy). 24 HOUR EVENTS & SUBJECTIVE: Yesterday: - Psychiatry consult, recommend starting Wellbutrin for presumed depression versus hypoactive delirium - PT evaluated and recommends swing bed - GI consulted and recommends patient continue working w/APPAREL SALES ASSOCIATE, can consider PEG if inadequate improvement Overnight: [...] Gas): No results found for: PHART, PO2ART, LJG5UZT, XCX9PCL VBG (Venous Blood Gas): No results for input(s): PHVEN, VEG3PDX, PO2VEN, DYS0JXA, BEVEN, GUA5LDT in the last 72 hours. EKG: Lab [...] Date/Time Lower Respiratory Culture Bronchial Alveolar Lavage [[id number]] Collected: 08/21/221649 Lab Status: Final result Specimen: Bronchial Alveolar Lavage Updated: 08/23/22740 Lower Respiratory Culture Rare mixed bacterial morphotypes suggestive of normal upper respiratory wiley Gram Stain -- Few Neutrophils seen No squamous epithelial cells seen No microorganisms seen. Fungus Culture & Calc Stain Bronchial Alveolar Lavage [[id number]] (Abnormal) Collected: 08/21/221649 Lab Status: Preliminary result Specimen: Bronchial Alveolar Lavage Updated: 08/24/22 145 AFB culture Bronchial Alveolar Lavage [[id number]] Collected: 08/21/221649 Lab Status: Preliminary result Specimen: Bronchial Alveolar Lavage Updated: 08/24/222218 Acid Fast Bacilli Culture -- No Acid Fast Bacilli isolated to date If active tuberculosis is suspected, the patient should be on AIRBORNE PRECAUTIONS. Call Infection Prevention for assistance if needed. Acid Fast Stain No Acid Fast Bacilli seen Fungus culture [[id number]] (Abnormal) Collected: 08/21/221649 Lab Status: Preliminary result Specimen: Bronchial Alveolar Lavage Updated: 08/24/22 145 Fungus Culture Rare Jacky albicans Calcofluor White Stain [[id number]] Collected: 08/21/221649 Lab Status: Final result Specimen: Bronchial Alveolar Lavage Updated: 08/21/22 2016 Calcofluor Stain Calcofluor White Preparation: Negative Lower Respiratory Culture Bronchial Alveolar Lavage [[id number]] Collected: 08/21/221644 Lab Status: Final result Specimen: Bronchial Alveolar Lavage Updated: 08/23/22740 Lower Respiratory Culture Rare mixed bacterial morphotypes suggestive of normal upper respiratory wiley Gram Stain -- Moderate Neutrophils seen No squamous epithelial cells seen No microorganisms seen. Fungus Culture & Calc Stain Bronchial Alveolar Lavage [[id number]] (Abnormal) Collected: 08/21/22 164 Lab Status: Preliminary result Specimen: Bronchial Alveolar Lavage Updated: 08/24/22 1453 AFB culture Bronchial Alveolar Lavage [[id number]] Collected: 08/21/22 164 Lab Status: Preliminary result Specimen: Bronchial Alveolar Lavage Updated: 08/24/22 2221 Acid Fast Bacilli Culture -- No Acid Fast Bacilli isolated to date If active tuberculosis is suspected, the patient should be on AIRBORNE PRECAUTIONS. Call Infection Prevention for assistance if needed. Acid Fast Stain No Acid Fast Bacilli seen Fungus culture [[id number]] (Abnormal) Collected: 08/21/221644 Lab Status: Preliminary result Specimen: Bronchial Alveolar Lavage Updated: 08/24/22 145 Fungus Culture Rare Jacky albicans Calcofluor White Stain [[id number]] Collected: 08/21/221644 Lab Status: Final result Specimen: Bronchial Alveolar Lavage Updated: 08/21/22 2017 Calcofluor Stain Calcofluor White Preparation: Negative Blood culture [[id number]] Collected: 08/19/22 1720 Lab Status: Final result Specimen: Blood Updated: 08/24/22 2301 Blood Culture No growth at 5 days. Lower Respiratory Culture Sputum Induced [[id number]] Collected: 08/19/22 1451 Lab Status: Final result Specimen: Sputum Induced Updated: 08/21/22 0948 Lower Respiratory Culture Rare mixed bacterial morphotypes suggestive of normal upper respiratory wiley Gram Stain -- Many Neutrophils seen Few squamous epithelial cells seen No microorganisms seen. Blood culture [[id number]] Collected: 08/19/22 1330 Lab Status: Final result Specimen: Blood Updated: 08/24/22 1501 Blood Culture No growth at 5 days. Legionella Urinary Antigen [[id number]] Collected: 08/18/22 1013 Lab Status: Final result [...] Catheter Urine; Other; sepsis, bacteria on UA [[id number]] Collected: 08/15/22 1225 Lab Status: Final result Specimen: Indwelling Catheter Urine Updated: 08/16/22 0804 Urine Culture 1,000-9,000 cfu/ml Insignificant growth COVID-19 PCR [[id number]] Collected: 08/15/22 1150 Lab Status: Final result [...] diagnosis of COVID-19 is performed using the [employer] COVID-19 Direct Assay by Apiary as authorized by the FDA issued Emergency [...] Department of Pathology and Laboratory Medicine at [facility], certified under the Clinical Laboratory Improvement Amendments [...] fact sheets at the following FDA website: https://www.fda.gov/medical-devices/wodjmzisrln-dtzehkt-9997-adfmp-28-boeeqyswi- rae-moyfguuiremums-zbobnok-devices/wqmpj-rpznxbzpndd-irmd SARS-CoV-2 Source PLAN COORDINATOR Swab Lower Respiratory Culture Sputum Induced [[id number]] Collected: 08/15/22 0740 Lab Status: Final result Specimen: Sputum Induced Updated: 08/17/22 1015 Lower Respiratory Culture Rare normal upper respiratory wiley Gram Stain -- Many Neutrophils Few squamous epithelial cells Rare mixed bacterial morphotypes suggestive of normal upper respiratory wiley Blood culture [[id number]] Collected: 08/15/22 0110 Lab Status: Final result Specimen: Blood Updated: 08/20/22 0701 Blood Culture No growth at 5 days. MRSA PCR Screen ([facility]/CGP/APD/NLH) [[id number]] Collected: 08/15/22 0050 Lab Status: Final result Specimen: Nasopharyngeal Swab Updated: 08/17/22 1419 MRSA Result Negative MRSA Interp -- Methicillin-resistant Staphylococcus aureus (MRSA) is NOT DETECTED The MRSA target DNA sequences (mec and SCC) were not detected within the acceptable ranges using the Xpert MRSA NxG on the GeneXpert Dx System ([employer]). This suggests the absence of MRSA in the patient specimen submitted for testing. This test is cleared by the U.S. Food and Drug Administration for clinical use and its performance characteristics have been verified by the [facility] at [facility]. This result does not rule out the presence of any other organisms. Rare false negative results may occur if MRSA is present at low concentrations with much higher concentrations of other organisms including MRSE or S. aureus with an empty SCC cassette. Comment: [VERIFIED DATE]08.17.22 Verified By:Shannon Smiley (Electronic Signature) Blood culture [[id number]] Collected: 08/14/22 2574 Lab Status: Final result Specimen: Blood Updated: [...] who have questions please contact the health patient care technician instructor that requested your imaging first. Abdomen 1 [...] who have questions please contact the health patient care technician instructor that requested your imaging first. Chest One [...] who have questions please contact the health patient care technician instructor that requested your imaging first. Abdomen 1 [...] who have questions please contact the health patient care technician instructor that requested your imaging first. Chest One [...] who have questions please contact the health patient care technician instructor that requested your imaging first. Head wo [...] who have questions please contact the health patient care technician instructor that requested your imaging first. Electronically signed by: Moustapha Correa MD, [facility] ([phone]), at 08/16/2022 11:19 PM XR Abdomen 1 [...] who have questions please contact the health patient care technician instructor that requested your imaging first. Head wo Contrast (Generic) (Exam End: 08/18/2022 3:14 PM) Impression No acute intracranial process. Thank you for letting us participate in the care of this patient. If you are a health care provider and have any questions regarding this report, please contact the number below. For patients who have questions please contact the health patient care technician instructor that requested your imaging first. Chest One [...] who have questions please contact the health patient care technician instructor that requested your imaging first. Brain wo Contrast (Exam End: 08/19/2022 10:15 PM) Impression No acute infarction, mass or mass effect. Thank you for letting us participate in the care of this patient. If you are a health care provider and have any questions regarding this report, please contact the number below. For patients who have questions please contact the health patient care technician instructor that requested your imaging first. Chest for [...] who have questions please contact the health patient care technician instructor that requested your imaging first. Hip w [...] who have questions please contact the health patient care technician instructor that requested your imaging first. Electronically signed by: Aicha Chowdhury MD, [facility] ([phone]), at 08/21/2022 9:[address] Chest w [...] who have questions please contact the health patient care technician instructor that requested your imaging first. Hip 2-3 Views Left (Exam End: 08/22/2022 12:19 AM) Impression No radiographic evidence of infection. Thank you for letting us participate in the care of this patient. If you are a health care provider and have any questions regarding this report, please contact the number below. For patients who have questions please contact the health patient care technician instructor that requested your imaging first. Electronically signed by: Viktor Cervantes MD, [facility] ([phone]), at 08/22/2022 12:43 PM XR Pelvis (Generic) (Exam End: 08/22/2022 12:19 AM) Impression No radiographic evidence of infection status post left hip ORIF. Thank you for letting us participate in the care of this patient. If you are a health care provider and have any questions regarding this report, please contact the number below. For patients who have questions please contact the health patient care technician instructor that requested your imaging first. Electronically signed by: Richard Billings MD, [facility] ([phone]), at 08/22/2022 10:[address] Angiogram Coronary [...] who have questions please contact the health patient care technician instructor that requested your imaging first. Chest wo Contrast (Generic) (Exam End: 08/27/2022 8:58 AM) Impression Stable findings of multifocal pneumonia. No interval abnormality. Thank you for letting us participate in the care of this patient. If you are a health care provider and have any questions regarding this report, please contact the number below. For patients who have questions please contact the health patient care technician instructor that requested your imaging first. Fluoro Barium [...] who have questions please contact the health patient care technician instructor that requested your imaging first. Medications: Scheduled: [...] anemia,??GERD??c/b??esophagitis &??Farrell's esophagus, who was admitted to [facility] on 08/14/2022 (now on Hospital Day [...] with Dr. Marquis in June. Anticipate further APPAREL SALES ASSOCIATE intervention with hope that patient is able to discharge with PO nutrition, percutaneous G-tube remains a possibility. Patient's profound psychomotor slowing raises some concern for catatonia. May consider trial of benzodiazepines if response is not seen to wellbutrin. Today's plan: - Start wellbutrin today - Ongoing therapy with PT, OT, and APPAREL SALES ASSOCIATE - Replete mag w/2gm for goal >1 - reticulocyte count (further interrogation of microcytic anemia) Neuro: # Bipolar Disorder - Depakote 300 mg oral liquid per Dobhoff tube q6hr. - Continue Seroquel 100mg nightly - Will check VPA trough level 08/29. - level 25mg/L 08/29 - APPAREL SALES ASSOCIATE to evaluate, Recommend NPO at present - [...] Medicine PGY1 Medicine Team: Jose Juan, Pager #[phone] Date: 09/02/2022 Associated attestation - Tenisha Sandy [...] of two midnights or is on the [facility] inpatient only procedure list (status C) due to: acute metabolic encephalopathy,management of nstemi/stress cardiomyopathy, s/p treatment of sepsis. Also management of IV fluids as patient is not able to tolerate any PO intake. * Shashi Young - 09/01/2022 5:29 PM EDT Manager Trading Encounter Note Patient Name: Ishan Irving : [id number] MR#: [id number] Admit Date: 08/14/2022 11:11 PM Hospital Day 18 days Narrative: Self initiated follow up visit to patient for Spiritual support in a regular unit rounds. I visitedpatient with ERI Orozco - roland Residency nurse shadowing me. Assessment: Patient is [...] Care: Nydia Young 09/01/2022 * Petty Mccullough, APPAREL SALES ASSOCIATE - 09/01/2022 1:56 PM EDT Speech Therapy Note Patient Profile:??Ishan Irving is a 62 year old female with a medical history notable for??recent L femoral neck fracture,??bipolar disorder, resolving medication-induced Parkinsonism, insulin-dependent diabetes mellitus,??hx of alcohol use disorder (reported to be in remission for 1.5 years)c/b chronic pancreatitis, iron deficiency anemia,??GERD??c/b??esophagitis &??Farrell's esophagus??presenting in transfer from [facility]??on 08/14/2022, suspected to be in cardiogenic shock and found to be in mixed shock with concern for stress cardiomyopathy.??APPAREL SALES ASSOCIATE following for swallow, cognitive tx. MBS completed [...] nutrition/hydration to provide nutrition during rehab course. APPAREL SALES ASSOCIATE will f/u for ongoing swallow and cognitive intervention. ?? Barium swallow (esophagram) will be helpful at later date (due to hx of Farrell's esophagus/GERD), however Pt is at high potential for aspiration during study d/t positioning requirements for this test. Likely will need a repeat MBS prior to ordering of barium swallow. ?? Pt would benefit from skilled APPAREL SALES ASSOCIATE services to maximize swallow function and safety [...] in ongoing cognitive-linguistic evaluation. Plan: Therapy Frequency (APPAREL SALES ASSOCIATE Eval): 2-4 times/wk Pt./family are in agreement with treatment plan. Total Minutes (Speech Language Pathology): 26 Petty Mccullough M.S., [facility]-APPAREL SALES ASSOCIATE Inpatient Speech-Pathology Pager: [phone] * Alicia Cook, OT - 09/01/2022 1:38 [...] anemia,??GERD??c/b??esophagitis &??Farrell's esophagus??presenting in transfer from [facility], suspected to be in cardiogenic shock [...] determined Anticipated Discharge Disposition: acute rehabilitation facility, half-way facility Daily schedule / Staff Recommendations: ? [...] Minutes, Occupational Therapy: 38 (2 TA) Pager: [phone] Alicia Cook OT 09/01/2022 Occupational Therapy Rehabilitation [...] anemia,??GERD??c/b??esophagitis &??Farrell's esophagus??presenting in transfer from [facility], suspected to be in cardiogenic shock [...] Code: TA x 1 (seeb with OT) EGNE YOUNG, PT Pager: [phone] Physical Therapy Inpatient Rehabilitation Department * Elsie Erickson, CARDBOARD INSERTER - 09/01/2022 7:30 AM EDT Follow Up [...] anemia,??GERD??c/b??esophagitis &??Farrell's esophagus??presenting in transfer from [facility], suspected to be in cardiogenic shock [...] goal of 98mls/hr Monitoring:??Q4 Elsie Erickson APRN [facility] Endocrinology Diabetes Management Pager [phone] * Irwin Jones MD - 09/01/2022 7:19 AM EDT Images from the original note were not included. Inpatient Hospital Medicine Progress Note 09/01/2022 Patient Name: ISHAN IRVING Date of : 1960 Age: 62 y.o. Hospital Admit Date: 08/14/2022 Hospital Day: 18 Inpatient Attending: Tenisha Sandy MD PCP: Chris Stanley APRN ([phone]) No chief complaint on file. ID: Ishan Irving is a 62 y.o. 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.5 years) c/b chronic pancreatitis, iron deficiency anemia, ??GERD??c/b??esophagitis &??Farrell's esophagus, who was admitted to [facility] on 08/14/2022 (now on Hospital Day #18), and transferred to Hospital Medicine team from Cardiology on 08/30 for mixed shock with concern for stress cardiomyopathy (Takotsubo Cardiomyopathy). 24 HOUR EVENTS & SUBJECTIVE: Yesterday: - MBS performed, APPAREL SALES ASSOCIATE recommend NPO with ice chips for pleasure [...] Gas): No results found for: PHART, PO2ART, XWR8WSD, AQP8YVL VBG (Venous Blood Gas): No results for input(s): PHVEN, VAU8BGQ, PO2VEN, UZU7XXQ, BEVEN, YOB2ZGD in the last 72 hours. EKG: Lab [...] Date/Time Lower Respiratory Culture Bronchial Alveolar Lavage [[id number]] Collected: 08/21/221649 Lab Status: Final result Specimen: Bronchial Alveolar Lavage Updated: 08/23/22 0741 Lower Respiratory Culture Rare mixed bacterial morphotypes suggestive of normal upper respiratory wiley Gram Stain -- Few Neutrophils seen No squamous epithelial cells seen No microorganisms seen. Fungus Culture & Calc Stain Bronchial Alveolar Lavage [[id number]] (Abnormal) Collected: 08/21/221649 Lab Status: Preliminary result Specimen: Bronchial Alveolar Lavage Updated: 08/24/22 1452 AFB culture Bronchial Alveolar Lavage [[id number]] Collected: 08/21/221649 Lab Status: Preliminary result Specimen: Bronchial Alveolar Lavage Updated: 08/24/22 2219 Acid Fast Bacilli Culture -- No Acid Fast Bacilli isolated to date If active tuberculosis is suspected, the patient should be on [employer] PRECAUTIONS. Call Infection Prevention for assistance if needed. Acid Fast Stain No Acid Fast Bacilli seen Fungus culture [[id number]] (Abnormal) Collected: 08/21/221649 Lab Status: Preliminary result Specimen: Bronchial Alveolar Lavage Updated: 08/24/22 145 Fungus Culture Rare Jacky albicans Calcofluor White Stain [[id number]] Collected: 08/21/221649 Lab Status: Final result Specimen: Bronchial Alveolar Lavage Updated: 08/21/222015 Calcofluor Stain Calcofluor White Preparation: Negative Lower Respiratory Culture Bronchial Alveolar Lavage [[id number]] Collected: 08/21/221644 Lab Status: Final result Specimen: Bronchial Alveolar Lavage Updated: 08/23/22 0741 Lower Respiratory Culture Rare mixed bacterial morphotypes suggestive of normal upper respiratory wiley Gram Stain -- Moderate Neutrophils seen No squamous epithelial cells seen No microorganisms seen. Fungus Culture & Calc Stain Bronchial Alveolar Lavage [[id number]] (Abnormal) Collected: 08/21/221644 Lab Status: Preliminary result Specimen: Bronchial Alveolar Lavage Updated: 08/24/22 1453 AFB culture Bronchial Alveolar Lavage [[id number]] Collected: 08/21/221644 Lab Status: Preliminary result Specimen: Bronchial Alveolar Lavage Updated: 08/24/22 2221 Acid Fast Bacilli Culture -- No Acid Fast Bacilli isolated to date If active tuberculosis is suspected, the patient should be on [employer] PRECAUTIONS. Call Infection Prevention for assistance if needed. Acid Fast Stain No Acid Fast Bacilli seen Fungus culture [[id number]] (Abnormal) Collected: 08/21/221644 Lab Status: Preliminary result Specimen: Bronchial Alveolar Lavage Updated: 08/24/22 145 Fungus Culture Rare Jacky albicans Calcofluor White Stain [[id number]] Collected: 08/21/221644 Lab Status: Final result Specimen: Bronchial Alveolar Lavage Updated: 08/21/222016 Calcofluor Stain Calcofluor White Preparation: Negative Blood culture [[id number]] Collected: 08/19/22 1720 Lab Status: Final result Specimen: Blood Updated: 08/24/22 2301 Blood Culture No growth at 5 days. Lower Respiratory Culture Sputum Induced [[id number]] Collected: 08/19/22 1451 Lab Status: Final result Specimen: Sputum Induced Updated: 08/21/22 0948 Lower Respiratory Culture Rare mixed bacterial morphotypes suggestive of normal upper respiratory wiley Gram Stain -- Many Neutrophils seen Few squamous epithelial cells seen No microorganisms seen. Blood culture [[id number]] Collected: 08/19/22 1330 Lab Status: Final result Specimen: Blood Updated: 08/24/22 1501 Blood Culture No growth at 5 days. Legionella Urinary Antigen [[id number]] Collected: 08/18/22 1013 Lab Status: Final result [...] Catheter Urine; Other; sepsis, bacteria on UA [[id number]] Collected: 08/15/22 1225 Lab Status: Final result Specimen: Indwelling Catheter Urine Updated: 08/16/22 0804 Urine Culture 1,000-9,000 cfu/ml Insignificant growth COVID-19 PCR [[id number]] Collected: 08/15/22 1150 Lab Status: Final result [...] using the Simplexa COVID-19 Direct Assay by Apiary as authorized by the FDA issued Emergency [...] Department of Pathology and Laboratory Medicine at [facility], certified under the Clinical Laboratory Improvement Amendments [...] fact sheets at the following FDA website: https://www.fda.gov/medical-devices/qxnkurjecvg-ejyevhe-0027-fozif-41-zxikaevea- mqi-aivtbynfktwacn-szezvcj-devices/pyqgk-tpddasedwwe-eztu SARS-CoV-2 Source PLAN COORDINATOR Swab Lower Respiratory Culture Sputum Induced [[id number]] Collected: 08/15/22 0740 Lab Status: Final result Specimen: Sputum Induced Updated: 08/17/22 1015 Lower Respiratory Culture Rare normal upper respiratory wiley Gram Stain -- Many Neutrophils Few squamous epithelial cells Rare mixed bacterial morphotypes suggestive of normal upper respiratory wiley Blood culture [[id number]] Collected: 08/15/22 0110 Lab Status: Final result Specimen: Blood Updated: 08/20/22 0701 Blood Culture No growth at 5 days. MRSA PCR Screen ([facility]/CGP/APD/NLH) [[id number]] Collected: 08/15/22 0050 Lab Status: Final result Specimen: Nasopharyngeal Swab Updated: 08/17/22 1419 MRSA Result Negative MRSA Interp -- Methicillin-resistant Staphylococcus aureus (MRSA) is NOT DETECTED The MRSA target DNA sequences (mec and SCC) were not detected within the acceptable ranges using the Xpert MRSA NxG on the GeneXpert Dx System ([employer]). This suggests the absence of MRSA in the patient specimen submitted for testing. This test is cleared by the U.S. Food and Drug Administration for clinical use and its performance characteristics have been verified by the [facility] at [facility]. This result does not rule out the presence of any other organisms. Rare false negative results may occur if MRSA is present at low concentrations with much higher concentrations of other organisms including MRSE or S. aureus with an empty SCC cassette. Comment: [VERIFIED DATE]08.17.22 Verified By:Shannon Smiley (Electronic Signature) Blood culture [[id number]] Collected: 08/14/22 2355 Lab Status: Final result [...] who have questions please contact the health patient care technician instructor that requested your imaging first. Abdomen 1 [...] who have questions please contact the health patient care technician instructor that requested your imaging first. Chest One [...] who have questions please contact the health patient care technician instructor that requested your imaging first. Abdomen 1 [...] who have questions please contact the health patient care technician instructor that requested your imaging first. Chest One [...] who have questions please contact the health patient care technician instructor that requested your imaging first. Head wo [...] who have questions please contact the health patient care technician instructor that requested your imaging first. Electronically signed by: Moustapha Correa MD, [facility] ([phone]), at 08/16/2022 11:19 PM XR Abdomen 1 [...] who have questions please contact the health patient care technician instructor that requested your imaging first. Head wo Contrast (Generic) (Exam End: 08/18/2022 3:14 PM) Impression No acute intracranial process. Thank you for letting us participate in the care of this patient. If you are a health care provider and have any questions regarding this report, please contact the number below. For patients who have questions please contact the health patient care technician instructor that requested your imaging first. Chest One [...] who have questions please contact the health patient care technician instructor that requested your imaging first. Brain wo Contrast (Exam End: 08/19/2022 10:15 PM) Impression No acute infarction, mass or mass effect. Thank you for letting us participate in the care of this patient. If you are a health care provider and have any questions regarding this report, please contact the number below. For patients who have questions please contact the health patient care technician instructor that requested your imaging first. Chest for [...] who have questions please contact the health patient care technician instructor that requested your imaging first. Hip w [...] who have questions please contact the health patient care technician instructor that requested your imaging first. Electronically signed by: Aicha Chowdhury MD, [facility] ([phone]), at 08/21/2022 9:[address] Chest w [...] who have questions please contact the health patient care technician instructor that requested your imaging first. Hip 2-3 Views Left (Exam End: 08/22/2022 12:19 AM) Impression No radiographic evidence of infection. Thank you for letting us participate in the care of this patient. If you are a health care provider and have any questions regarding this report, please contact the number below. For patients who have questions please contact the health patient care technician instructor that requested your imaging first. Electronically signed by: Viktor Cervantes MD, [facility] ([phone]), at 08/22/2022 12:43 PM XR Pelvis (Generic) (Exam End: 08/22/2022 12:19 AM) Impression No radiographic evidence of infection status post left hip ORIF. Thank you for letting us participate in the care of this patient. If you are a health care provider and have any questions regarding this report, please contact the number below. For patients who have questions please contact the health patient care technician instructor that requested your imaging first. Electronically signed by: Richard Billings MD, [facility] ([phone]), at 08/22/2022 10:[address] Angiogram Coronary [...] who have questions please contact the health patient care technician instructor that requested your imaging first. Chest wo Contrast (Generic) (Exam End: 08/27/2022 8:58 AM) Impression Stable findings of multifocal pneumonia. No interval abnormality. Thank you for letting us participate in the care of this patient. If you are a health care provider and have any questions regarding this report, please contact the number below. For patients who have questions please contact the health patient care technician instructor that requested your imaging first. Fluoro Barium [...] who have questions please contact the health patient care technician instructor that requested your imaging first. Medications: Scheduled: [...] anemia,??GERD??c/b??esophagitis &??Farrell's esophagus, who was admitted to [facility] on 08/14/2022 (now on Hospital Day [...] level 08/29. - level 25mg/L 08/29 - APPAREL SALES ASSOCIATE to evaluate, Recommend NPO at present - [...] Medicine PGY1 Medicine Team: Jose Juan, Pager #[phone] Date: 09/01/2022 Associated attestation - Tenisha Sandy [...] of two midnights or is on the [facility] inpatient only procedure list (status C) [...] on importance.No c/o pain. * Elsie Erickson, VAUGHN - 08/31/2022 3:07 PM EDT Follow Up [...] anemia,??GERD??c/b??esophagitis &??Farrell's esophagus??presenting in transfer from [facility], suspected to be in cardiogenic shock [...] of 98mls/hr Monitoring: Q4 Elsie Erickson APRN [facility] Endocrinology Diabetes Management Pager [phone] 20 minutes of this 35 minute visit [...] anemia,??GERD??c/b??esophagitis &??Farrell's esophagus??presenting in transfer from [facility]??on 08/14/2022, suspected to be in cardiogenic shock and found to be in mixed shock with concern for stress cardiomyopathy.??APPAREL SALES ASSOCIATE service was consulted to assess oropharyngeal swallow [...] cup, by straw with attempted chin tuck. [address] consistency thickened liquid by spoon x1, by [...] x2 ??? Posterior laryngeal portion of epiglottis: [address]-thick by spoon ??? Pyriform Sinuses: Thin liquids by cup, [address]-thick liquids by strawe ??? Airway: Thin liquids [...] Scale Score (RosenStefania galvan et al. Dysphagia, 11, 1995) 1 = no material enters the airway 2 = material enters the airway, does not touch the vocal cords, and is completely ejected 3 = material enters the airway, does not touch the vocal cords, but is not ejected: [address]-thick liquids 4 = material enters the airway, [...] family and Pt at later date. [place]: [facility] [place] this date revealing: ?? Audible aspiration [...] nutrition/hydration to provide nutrition during rehab course. APPAREL SALES ASSOCIATE will f/u for ongoing swallow intervention and therapeutic trials. Barium swallow (esophagram) will be helpful at later date, however Pt is at high potential for aspiration during study d/t positioning requirements for barium swallow. Pt would benefit from skilled APPAREL SALES ASSOCIATE services to maximize swallow function and safety [...] page me with any questions or concerns. BRAYDON Aquino MS, CCC-APPAREL SALES ASSOCIATE Pager: [phone] Speech-Language Pathology Inpatient Rehabilitation Department * Gene [...] anemia,??GERD??c/b??esophagitis &??Farrell's esophagus??presenting in transfer from [facility], suspected to be in cardiogenic shock [...] TA x 2 GENE YOUNG, PT Pager: [phone] Physical Therapy Inpatient Rehabilitation Department * Nancy Ernst, RD - 08/31/2022 8:21 AM EDT Nutrition Progress Note Ishan Irving is a 62 y.o.??female??with h/o bipolar, DM, EtOH, esophagitis, who presented to [facility] 3 days ago after being found unresponsive at home.?Patient found to have likely pneumonia +/- aspiration, newly reduced EF. Reason for Assessment: Follow-up, Tube Feeding Nutrition Recommendations: Enteral Nutrition: Cyclic Peptamen AF at 110ml/hr for 12hrs from 8722-5140 At goal, this will provide: Peptamen AF Total Volume Per Day: 1320 mL Scoops of Protein: 0 Calories per Day: 1584 Protein per Day: 100 g Free Water mL per Day: 1072 % RDI: 106 % Monitor hydration status on above TFs as they are concentrated. Pt may need additional fluids depending on IVFs, med flushes, p.o. Intake, etc. Diet per APPAREL SALES ASSOCIATE Monitor weight to trend Monitor BM. Goal [...] encounter: 67.7 kg (149 lb 4.8 oz). Almond Body Weight (IBW) (kg): 45.45 Usual Body [...] 08/25 r/t liquid tylenol, d/c per this procedure writer's request as liquid tylenol acts as [...] up while inpatient Nancy Ernst RD Pager #:[phone] * Irwin Jones MD - 08/31/2022 7:09 AM EDT Images from the original note were not included. Inpatient Hospital Medicine Progress Note 08/31/2022 Patient Name: ISHAN IRVING Date of : 1960 Age: 62 y.o. Hospital Admit Date: 08/14/2022 Hospital Day: 17 Inpatient Attending: Alfonso Navarrete MD PCP: Chris Stanley APRN ([phone]) No chief complaint on file. ID: Ishan Irving is a 62 y.o. 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 24 HOUR EVENTS & SUBJECTIVE: Yesterday: - Patient transferred from Cards as cardiomyopathy is now stabilized on goal directed therapy - Patient, per APPAREL SALES ASSOCIATE eval, is strict NPO given HIGH concern [...] Gas): No results found for: PHART, PO2ART, PZH3FCJ, XDV8HJP VBG (Venous Blood Gas): No results for input(s): PHVEN, OYZ8QPZ, PO2VEN, LTX6WPJ, BEVEN, KFK9JMM in the last 72 hours. EKG: Lab [...] Date/Time Lower Respiratory Culture Bronchial Alveolar Lavage [[id number]] Collected: 08/21/221649 Lab Status: Final result Specimen: Bronchial Alveolar Lavage Updated: 08/23/22 0741 Lower Respiratory Culture Rare mixed bacterial morphotypes suggestive of normal upper respiratory wiley Gram Stain -- Few Neutrophils seen No squamous epithelial cells seen No microorganisms seen. Fungus Culture & Calc Stain Bronchial Alveolar Lavage [[id number]] (Abnormal) Collected: 08/21/221649 Lab Status: Preliminary result Specimen: Bronchial Alveolar Lavage Updated: 08/24/22 145 AFB culture Bronchial Alveolar Lavage [[id number]] Collected: 08/21/221649 Lab Status: Preliminary result Specimen: Bronchial Alveolar Lavage Updated: 08/24/22 221 Acid Fast Bacilli Culture -- No Acid Fast Bacilli isolated to date If active tuberculosis is suspected, the patient should be on [employer] PRECAUTIONS. Call Infection Prevention for assistance if needed. Acid Fast Stain No Acid Fast Bacilli seen Fungus culture [[id number]] (Abnormal) Collected: 08/21/221649 Lab Status: Preliminary result Specimen: Bronchial Alveolar Lavage Updated: 08/24/22 145 Fungus Culture Rare Jacky albicans Calcofluor White Stain [[id number]] Collected: 08/21/221649 Lab Status: Final result Specimen: Bronchial Alveolar Lavage Updated: 08/21/222015 Calcofluor Stain Calcofluor White Preparation: Negative Lower Respiratory Culture Bronchial Alveolar Lavage [[id number]] Collected: 08/21/221644 Lab Status: Final result Specimen: Bronchial Alveolar Lavage Updated: 08/23/2241 Lower Respiratory Culture Rare mixed bacterial morphotypes suggestive of normal upper respiratory wiley Gram Stain -- Moderate Neutrophils seen No squamous epithelial cells seen No microorganisms seen. Fungus Culture & Calc Stain Bronchial Alveolar Lavage [[id number]] (Abnormal) Collected: 08/21/221644 Lab Status: Preliminary result Specimen: Bronchial Alveolar Lavage Updated: 08/24/22 145 AFB culture Bronchial Alveolar Lavage [[id number]] Collected: 08/21/221644 Lab Status: Preliminary result Specimen: Bronchial Alveolar Lavage Updated: 08/24/22 2221 Acid Fast Bacilli Culture -- No Acid Fast Bacilli isolated to date If active tuberculosis is suspected, the patient should be on [employer]CA[employer]. Call Infection Prevention for assistance if needed. Acid Fast Stain No Acid Fast Bacilli seen Fungus culture [[id number]] (Abnormal) Collected: 08/21/22 1645 Lab Status: Preliminary result Specimen: Bronchial Alveolar Lavage Updated: 08/24/22 1453 Fungus Culture Rare Jacky albicans Calcofluor White Stain [[id number]] Collected: 08/21/22 164 Lab Status: Final result Specimen: Bronchial Alveolar Lavage Updated: 08/21/22 2017 Calcofluor Stain Calcofluor White Preparation: Negative Blood culture [[id number]] Collected: 08/19/22 1720 Lab Status: Final result Specimen: Blood Updated: 08/24/22 2301 Blood Culture No growth at 5 days. Lower Respiratory Culture Sputum Induced [[id number]] Collected: 08/19/22 1451 Lab Status: Final result Specimen: Sputum Induced Updated: 08/21/22 0948 Lower Respiratory Culture Rare mixed bacterial morphotypes suggestive of normal upper respiratory wiley Gram Stain -- Many Neutrophils seen Few squamous epithelial cells seen No microorganisms seen. Blood culture [[id number]] Collected: 08/19/22 1330 Lab Status: Final result Specimen: Blood Updated: 08/24/22 1501 Blood Culture No growth at 5 days. Legionella Urinary Antigen [[id number]] Collected: 08/18/22 1013 Lab Status: Final result [...] Catheter Urine; Other; sepsis, bacteria on UA [[id number]] Collected: 08/15/22 1225 Lab Status: Final result Specimen: Indwelling Catheter Urine Updated: 08/16/22 0804 Urine Culture 1,000-9,000 cfu/ml Insignificant growth COVID-19 PCR [[id number]] Collected: 08/15/22 1150 Lab Status: Final result [...] using the Simplexa COVID-19 Direct Assay by Apiary as authorized by the FDA issued Emergency [...] Department of Pathology and Laboratory Medicine at [facility], certified under the Clinical Laboratory Improvement Amendments [...] fact sheets at the following FDA website: https://www.fda.gov/medical-devices/fkhlqkavbvv-emowrmb-3355-pufpg-84-ywiwdlzvo- lap-ovezzpxkyezwuq-fydwgdt-devices/snirh-sexpoubetxp-dbad SARS-CoV-2 Source PLAN COORDINATOR Swab Lower Respiratory Culture Sputum Induced [[id number]] Collected: 08/15/22 0740 Lab Status: Final result Specimen: Sputum Induced Updated: 08/17/22 1015 Lower Respiratory Culture Rare normal upper respiratory wiley Gram Stain -- Many Neutrophils Few squamous epithelial cells Rare mixed bacterial morphotypes suggestive of normal upper respiratory wiley Blood culture [[id number]] Collected: 08/15/22 0110 Lab Status: Final result Specimen: Blood Updated: 08/20/22 0701 Blood Culture No growth at 5 days. MRSA PCR Screen ([facility]/CGP/APD/NLH) [[id number]] Collected: 08/15/22 0050 Lab Status: Final result Specimen: Nasopharyngeal Swab Updated: 08/17/22 1419 MRSA Result Negative MRSA Interp -- Methicillin-resistant Staphylococcus aureus (MRSA) is NOT DETECTED The MRSA target DNA sequences (mec and SCC) were not detected within the acceptable ranges using the Xpert MRSA NxG on the GeneXpert Dx System ([place]). This suggests the absence of MRSA in the patient specimen submitted for testing. This test is cleared by the U.S. Food and Drug Administration for clinical use and its performance characteristics have been verified by the [facility] at [facility]. This result does not rule out the presence of any other organisms. Rare false negative results may occur if MRSA is present at low concentrations with much higher concentrations of other organisms including MRSE or S. aureus with an empty SCC cassette. Comment: [VERIFIED DATE]08.17.22 Verified By:Shannon Smiley (Electronic Signature) Blood culture [[id number]] Collected: 08/14/22 2355 Lab Status: Final result [...] who have questions please contact the health patient care technician instructor that requested your imaging first. Abdomen 1 [...] who have questions please contact the health patient care technician instructor that requested your imaging first. Chest One [...] who have questions please contact the health patient care technician instructor that requested your imaging first. Abdomen 1 [...] who have questions please contact the health patient care technician instructor that requested your imaging first. Chest One [...] who have questions please contact the health patient care technician instructor that requested your imaging first. Head wo [...] who have questions please contact the health patient care technician instructor that requested your imaging first. Electronically signed by: Moustapha Correa MD, [facility] ([phone]), at 08/16/2022 11:19 PM XR Abdomen 1 [...] who have questions please contact the health patient care technician instructor that requested your imaging first. Head wo Contrast (Generic) (Exam End: 08/18/2022 3:14 PM) Impression No acute intracranial process. Thank you for letting us participate in the care of this patient. If you are a health care provider and have any questions regarding this report, please contact the number below. For patients who have questions please contact the health patient care technician instructor that requested your imaging first. Chest One [...] who have questions please contact the health patient care technician instructor that requested your imaging first. Brain wo Contrast (Exam End: 08/19/2022 10:15 PM) Impression No acute infarction, mass or mass effect. Thank you for letting us participate in the care of this patient. If you are a health care provider and have any questions regarding this report, please contact the number below. For patients who have questions please contact the health patient care technician instructor that requested your imaging first. Chest for [...] who have questions please contact the health patient care technician instructor that requested your imaging first. Hip w [...] who have questions please contact the health patient care technician instructor that requested your imaging first. Electronically signed by: Aicha Chowdhury MD, [facility] ([phone]), at 08/21/2022 9:[address] Chest w [...] who have questions please contact the health patient care technician instructor that requested your imaging first. Hip 2-3 Views Left (Exam End: 08/22/2022 12:19 AM) Impression No radiographic evidence of infection. Thank you for letting us participate in the care of this patient. If you are a health care provider and have any questions regarding this report, please contact the number below. For patients who have questions please contact the health patient care technician instructor that requested your imaging first. Electronically signed by: Viktor Cervantes MD, [facility] ([phone]), at 08/22/2022 12:43 PM XR Pelvis (Generic) (Exam End: 08/22/2022 12:19 AM) Impression No radiographic evidence of infection status post left hip ORIF. Thank you for letting us participate in the care of this patient. If you are a health care provider and have any questions regarding this report, please contact the number below. For patients who have questions please contact the health patient care technician instructor that requested your imaging first. Electronically signed by: Richard Billings MD, [facility] ([phone]), at 08/22/2022 10:[address] Angiogram Coronary [...] who have questions please contact the health patient care technician instructor that requested your imaging first. Chest wo Contrast (Generic) (Exam End: 08/27/2022 8:58 AM) Impression Stable findings of multifocal pneumonia. No interval abnormality. Thank you for letting us participate in the care of this patient. If you are a health care provider and have any questions regarding this report, please contact the number below. For patients who have questions please contact the health patient care technician instructor that requested your imaging first. Medications: Scheduled: [...] ??? tube feeding diet 1,176 mL (08/31/22 1433) PRN: ondansetron, iohexoL, melatonin, polyethylene glycoL, senna, [...] anemia,??GERD??c/b??esophagitis &??Farrell's esophagus, who was admitted to [facility] on 08/14/2022 (now on Hospital Day [...] level 08/29. - level 25mg/L 08/29 - APPAREL SALES ASSOCIATE to evaluate, Recommend strict NPO - Reach [...] Medicine PGY1 Medicine Team: Jose Juan, Pager #[phone] Date: 08/31/2022 Associated attestation - Tenisha Sandy [...] of two midnights or is on the [facility] inpatient only procedure list (status C) [...] Farrell's esophagus presenting in transfer from [facility], suspected to be in cardiogenic shock [...] Will check VPA trough level 08/29. - APPAREL SALES ASSOCIATE to evaluate. - Reach out to neurology, [...] 0. GDMT for HFrEF. Appreciate psychiatry and APPAREL SALES ASSOCIATE consultation. Rest per Dr. Avila. Roland Pruett MD, MPH, RPVI, FACC, FARYAN, SHERI, [facility] Pager [phone] Cardiovascular Healthcare Account ManagerMaster Naval [place] [phone] * Petty Mccullough, APPAREL SALES ASSOCIATE - 08/28/2022 3:49 PM EDT Speech Therapy Note Patient Profile: Ishan Irving is a 62 year old female with a medical history notable for??recent L femoral neck fracture,??bipolar disorder, resolving medication-induced Parkinsonism, insulin-dependent diabetes mellitus,??hx of alcohol use disorder (reported to be in remission for 1.5 years) c/b chronic pancreatitis, iron deficiency anemia,??GERD??c/b??esophagitis &??Farrell's esophagus??presenting in transfer from [facility] on 08/14/2022, suspected to be in cardiogenic shock and found to bein mixed shock with concern for stress cardiomyopathy. APPAREL SALES ASSOCIATE service was consulted to assess oropharyngeal swallow [...] non-productive. Bolus Presentation(s) ?? Ice chips ?? [address] thickened liquid via cup ?? Puree Oral [...] [x] [] Orientation Log Score: 21 Education: APPAREL SALES ASSOCIATE educated re: plan of care, recs for MBS at later date. Pt in agreement, stating she would like DHT out but understands she is not ready to eat/drink yet. Assessment: Pt was seen today for a follow-up APPAREL SALES ASSOCIATE visit. ??? Oropharyngeal swallow function characterized by suspected delayed swallow initiation and cough response with all PO trials this date. Cough appears effortful, non-productive. ??? Based on Pt's complicated medical history and current debility, recommend MBS prior to diet initiation. Orders received, will try to order for next week (4/24-09/04) ??? Orientation log score of , does [...] from staff as needed Plan: Therapy Frequency (APPAREL SALES ASSOCIATE Eval): 2-4 times/wk Pt./family are in agreement with treatment plan. Total Minutes (Speech Language Pathology): 30 Petty Mccullough M.S., [facility] ASSOCI[facility] Inpatient Speech-Pathology Pager: [phone] * Elsie Erickson APRN - 08/28/2022 3:49 [...] anemia,??GERD??c/b??esophagitis &??Farrell's esophagus??presenting in transfer from [facility], suspected to be in cardiogenic shock [...] of 98mls/hr Monitoring: Q4 Elsie Erickson APRN [facility] Endocrinology Diabetes Management Pager [phone] 40 minutes of this 50 minute visit was spent evaluating diabetes and treatment plan, reviewing all glucose and insulin data as well as relevant laboratory results , and coordination of care on the inpatient unit including nursing and primary team. * Shashi Young - 08/28/2022 2:46 PM EDT Manager Trading Encounter Note Patient Name: Ishan Irving : [id number] MR#: [id number] Admit Date: 08/14/2022 11:11 PM Hospital Day [...] Shashi Young - 08/28/2022 11:45 AM EDT Manager Trading Encounter Note Patient Name: Ishan Irving : [id number] MR#: [id number] Admit Date: 08/14/2022 11:11 PM Hospital Day 14 days Narrative: A response to a referral from Abby via [employer] for Spiritual support to patient and her [...] anemia,??GERD??c/b??esophagitis &??Farrell's esophagus??presenting in transfer from [facility], suspected to be in cardiogenic shock [...] discharge: to be determined Anticipated Discharge Disposition: half-way facility, acute rehabilitation facility Daily schedule / [...] times/wk Total Minutes, Occupational Therapy: 28 (4 IY [id number]) Pager: [phone] Alicia Cook, OT 08/28/2022 Occupational Therapy Rehabilitation [...] anemia,??GERD??c/b??esophagitis &??Farrell's esophagus??presenting in transfer from [facility], suspected to be in cardiogenic shock [...] Billing Code: TAx2 GENE YOUNG, PT Pager: [phone] Physical Therapy Inpatient Rehabilitation Department * Avani Ayala RN - 08/28/2022 10:02 AM EDT Office of Care Management (OCM /[place] (RUPAL)Discharge planning ) Service : S1 Pager #[phone] [facility]. Report received from [facility] Patient plan of care discussed with Team and Nursing to assessment for continuing care and discharge needs. [facility]: 14 DECISION MAKER: Attempt Cardiopulmonary Resuscitation - Inpatient, <no information> Ongoing Issues: This procedure writer had a message to give Antonio [...] discuss discharge planning needs. ?? provide the [facility], Office of Care Management letter from the Wafer Machine Operator pertaining to rehabreferrals. ?? provide a letter describing our affiliations within the [facility] and educate about their right to choose where referrals are sent. ?? provide the CMS Star Quality Rating handout. ?? review the different levels of rehab including SNF, swing, and acute. ?? provide a list of facilities within their preferred geographic area. ?? request that they provide at least three choices for referral. They [facility] ([facility] [address] [place] [id number] P: [phone] F: [phone] Does patient have COVID vaccine card: No Note routed to a Bowling Ball Marker who will communicate referrals to facilities and [...] discharge planning. Avani Ayala RN Pager # [phone] * Reynaldo Avila MD - 08/28/2022 7:43 [...] Farrell's esophagus presenting in transfer from [facility], suspected to be in cardiogenic shock [...] parkinsonism/medication regimen contributing to overall slow recovery. APPAREL SALES ASSOCIATE consulted, appreciate recs. Neuro: # Bipolar Disorder - Depakote 300 mg oral liquid per Dobhoff tube q6hr. - Continue Seroquel 100mg nightly - Will check VPA trough level 08/29. - APPAREL SALES ASSOCIATE to evaluate. - Reach out to neurology, [...] 0. GDMT for HFrEF. Appreciate psychiatry and APPAREL SALES ASSOCIATE consultation. Roladn Pruett MD, MPH, RPVI, FACC, KOKI, SHERI, [facility] Pager [phone] Cardiovascular Healthcare Account ManagerMaster Naval Parach[place]ist[place] [phone] * Cydney Moses RN - 08/28/2022 7:00 AM EDT Pt was able to sleep most of the shift and woke up intermittently for basic need request. Tube feeding restarted per protocol at 45ml/hr. * Neva Zhao DIRECT CHILL CASTING OPERATOR - 08/27/2022 11:52 AM EDT This DIRECT CHILL CASTING OPERATOR received a message this morning from Ishan's spouse, Antonio, asking for a gas card. ThisMSW and transportation RS went to talk to Antonio about his request and provide him with informationon Medicaid rides. Antonio said he is familiar with Medicaid rides, but he is not interested in using those services at this time. This DIRECT CHILL CASTING OPERATOR then explained that the hospital is unable to provide gas cards if Medicaid rides are available. Antonio expressed understanding of this. Antonio then expressed frustration around the lack of support available from the state of [place], sharing that he continues to be unable to find any type of emergency assistance to help with bills and other expenses. Antonio thentalked about his support system, including their two sons that live in [place], as well as his sister and mother in [place]. Antonio said their sons plan to help [...] anemia,??GERD??c/b??esophagitis &??Farrell's esophagus??presenting in transfer from [facility], suspected to be in cardiogenic shock and found to be in mixed shock with concern for stress cardiomyopathy. She is s/p ORIF left femoral neck fracture 5 days ago at [facility]. Interval History: transferred to [facility]; mcrae removed; dobhoff remains Social [...] Billing Code: TA x 2 GENE YOUNG, DEB Pager: [phone] Physical Therapy Inpatient Rehabilitation Department * Reynaldo [...] Farrell's esophagus presenting in transfer from [facility], suspected to be in cardiogenic shock and found to be in mixed shock with concern for stress cardiomyopathy. 24 Hour Events/Subjective: Overnight: - NAEON. Intermittently disoriented, but stable overnight. This AM: - Stable from prior without significant change. Vasoactive & Sedating Medications: Infusions: Continuous Infusions: ??? tube feeding diet 900 mL (08/26/22 2333) Objective: Vitals Last value Range last 24 [...] left ventricular ejection fraction is 32% by Dhal's biplane. The apical portions of the LV [...] and will check VPA level 08/29. - APPAREL SALES ASSOCIATE to evaluate, pending recs Pulmonary: # Acute [...] the hospital. Hemodynamics stable. Still NPO per APPAREL SALES ASSOCIATE with enteral nutrition through DHT. Proceeding with [...] of two midnights or is on the [facility] inpatient only procedure list (status C) due to: decompensated congestive heart failure requiring IV medication and fluid monitoring and aspiration pneumonia unable to advance oralintake. Milagros Hernandez MD Cardiovascular Medicine Personal Pager [phone] 08/27/2022 6:22 PM * Rober Mensah MD [...] time. Orthopedics to sign off. Please page [phone] with any questions or concerns. Rober Mensah MD 08/27/22 * Nancy Ernst RD - 08/27/2022 8:16 AM EDT Nutrition Progress Note Ishan Irving is a 62 y.o.??female??with h/o bipolar, DM, EtOH, esophagitis, who presented to [facility] 3 days ago after being found unresponsive at home.?Patient found to have likely pneumonia +/- aspiration, newly reduced EF. Reason for Assessment: Follow-up, Tube Feeding Nutrition Recommendations: Enteral Nutrition: Cyclic Peptamen AF at 98ml/hr for 12hrs from [id number] At goal, this will provide: Peptamen AF [...] encounter: 69.6 kg (153 lb 6.4 oz). Almond Body Weight (IBW) (kg): 45.45 Usual Body [...] 08/25 r/t liquid tylenol, d/c per this procedure writer's request as liquid tylenol acts as [...] up while inpatient Nancy Ernst RD Pager #:[phone] * Cydney Moses RN - 08/27/2022 7:44 [...] PM EDT Patient arrived via bed from [facility] this afternoon in stable condition. VSS. Denies any chest pain/SOB. Feeding tube running at goal (45mL/hr). Patient A+Ox2-3. C/O of mild lower back pain. External female catheter in place d/t frequency and incontinence. Safety maintained, bed alarm on. Call light within reach. Pt oriented to room. * Neva Zhao MSW - 08/26/2022 2:30 PM EDT DIRECT CHILL CASTING OPERATOR received message stating that Ishan's , Antonio, is requesting social work support. Antonio shared that they have been denied support through economic services due to his disability income. Antonio also shared that he reached out to unemployment and his [employer] immigration case manager, but he has not found anyone able to help with their immediate financial needs (rent, utilities). Antonio became emotional during conversation, sharing that he is concerned they will lose their home if theycan't pay their bills. DIRECT CHILL CASTING OPERATOR provided support and promised to follow up with resources this afternoon. UPDATE: This DIRECT CHILL CASTING OPERATOR called [employer] [facility] to provide information for [facility], [facility] [place] [facility], [facility], and the local food pantry. Antonio appreciativeof [...] anemia,??GERD??c/b??esophagitis &??Farrell's esophagus??presenting in transfer from [facility] on 08/14/2022, suspected to be in cardiogenic shock and found to bein mixed shock with concern for stress cardiomyopathy. APPAREL SALES ASSOCIATE service was consulted to assess oropharyngeal swallow [...] chips ?? Thin liquid via spoon ?? [address] thickened liquid via spoon ?? via cup [...] reports pt was being followed closely by Team Coordinator and was supposed to go for a barium swallow sometime soon so they could look at her esophagus) Education: Pt and pt's , Antonio, verbally educated by this clinician to APPAREL SALES ASSOCIATE role, results ofthis bedside reassessment, pt current swallow status/function, aspiration risks, safe swallow technique (optimizing upright positioning) and impact of baseline esophageal history on function. Discussed plan as outlined below. Antonio verbalizes understanding and agreement; pt reports I guess so when asked if she understands. Assessment: Pt was seen today for a follow-up APPAREL SALES ASSOCIATE visit/reassessment. Pt sitting upright in chair today [...] have a barium swallow at baseline (via chain hoist operator) at some point to further assess [...] means only Continue alternative access (currently with [facility]) for primary nutrition/meds Consider GI input given baseline esophageal history? Aspiration Precautions: Excellent oral care Speech Therapy Goals: Pt will tolerate least restrictive diet without evidence of dysphagia / aspiration. Pt / caregiver will be independent with aspiration precautions, diet modifications, and safe swallowing strategies. Pt will maintain hydration / nutrition with optimal safety and efficiency. Plan: Therapy Frequency (APPAREL SALES ASSOCIATE Eval): 2-4 times/wk Patient / family are in agreement with treatment plan. Total Minutes (Speech Language Pathology): 25 Thank you for this consult with this patient. Please feel free to page me with any questions or concerns. Afia Bergeron M.S., [facility]ES ASSOCIATE Pager: [phone] Speech-Language Pathology Inpatient Rehabilitation Medicine * Moustapha [...] Farrell's esophagus presenting in transfer from [facility], suspected to be in cardiogenic shock [...] this AM. She has been working with APPAREL SALES ASSOCIATE/PT/OT and would benefit from continuation. Plan to obtain CT chest and CTA Coronaries today/tomorrow. Neuro: # Bipolar Disorder - Depakote 190 mg oral liquid per Dobhoff - Continue Seroquel 25mg nightly - Plan to increase to full home regimen (250mg QPM / 1g Q3PM) by 08/24. - APPAREL SALES ASSOCIATE to evaluate, pending recs Pulmonary: # Acute [...] of two midnights or is on the [facility] inpatient only procedure list (status C) due to: acute respiratory compromise and/or hypoxia requiring assessment every 4 hours and the ability to respond immediately to the patient's needs and acute cardiomyopathy requiring further evaluation and therapy and acute toxic metabolic encephalopathy. Milagros Hernandez MD Cardiovascular Medicine Personal Pager [phone] 08/26/2022 5:28 PM * Gene Young, PT [...] anemia,??GERD??c/b??esophagitis &??Farrell's esophagus??presenting in transfer from [facility], suspected to be in cardiogenic shock [...] plan as stated. Time IN / OUT: 8737-7766 Total Minutes, Physical Therapy: 20 Billing Code: TA x 1 GENE YOUNG, PT Pager: [phone] Physical Therapy Inpatient Rehabilitation Department * Elsie Erickson, CARDBOARD INSERTER - 08/26/2022 8:37 AM EDT Follow Up [...] anemia,??GERD??c/b??esophagitis &??Farrell's esophagus??presenting in transfer from [facility], suspected to be in cardiogenic shock [...] tid ac & hs Elsie Erickson APRN [facility] Endocrinology Diabetes Management Pager [phone] * hCiquita Mukherjee, PT - 08/25/2022 5:24 PM EDT [...] anemia,??GERD??c/b??esophagitis &??Farrell's esophagus??presenting in transfer from [facility], suspected to be in cardiogenic shock [...] ta x 3 CHIQUITA MUKHERJEE, PT Pager: [phone] Physical Therapy Inpatient Rehabilitation Department * Shea Wilkinson - 08/25/2022 4:15 PM EDT Manager Trading Encounter Note Patient Name: Ishan Irving : [id number] MR#: [id number] Admit Date: 08/14/2022 11:11 PM Hospital Day [...] Shashi Young - 08/25/2022 1:30 PM EDT Manager Trading Encounter Note Patient Name: Ishan Irving : [id number] MR#: [id number] Admit Date: 08/14/2022 11:11 PM Hospital Day [...] Direct Care: Yessenia Young 08/25/2022 * Adrienne Adler OT - 08/25/2022 12:58 PM EDT Occupational Therapy Evaluation Patient profile: Ishan Irving is a 62 y.o. female admitted on 08/14/2022 with a medical history notable for??recent L femoral neck fracture,??bipolar disorder, resolving medication-induced Parkinsonism, insulin-dependent diabetes mellitus,??hx of alcohol use disorder (reported to be in remission for 1.5 years) c/b chronic pancreatitis, iron deficiency anemia,??GERD??c/b??esophagitis &??Farrell's esophagus??presenting in transfer from [facility], suspected to be in cardiogenic shock and found to be in mixed shock with concern for stress cardiomyopathy. She is s/p ORIF left femoral neck fracture 5 days ago. Past Medical History: Diagnosis Date ??? Bipolar disorder 02/12/2022 Past Surgical History: Procedure Laterality Date ??? PRO COLONOSCOPY, BIOPSY N/A 03/20/2016 COLONOSCOPY FLEXIBLE, WITH BX performed by David Dejesus MD at [facility] ENDOSCOPY ??? PRO COLONOSCOPY, DIAGNOSTIC N/A 03/01/2020 COLONOSCOPY, DIAGNOSTIC performed by David Dejesus MD at [facility] ENDOSCOPY ??? PRO ENDOSCOPIC US EXAM, ESOPH N/A 03/31/2022 UPPER EUS- ENDOSCOPIC ULTRASOUND performed by David Dejesus MD at [facility] ENDOSCOPY ??? PRO UPPER GI ENDOSCOPY, BIOPSY N/A 04/03/2014 UPPER GASTROINTESTINAL ENDOSCOPY,WITH BIOPSY SINGLE OR MULTIPLE performed by [facility] MDat [facility] ENDOSCOPY ??? PRO UPPER GI ENDOSCOPY, BIOPSY N/A 03/20/2016 EGD WITH BIOPSY performed by David Dejesus MD at [facility] ENDOSCOPY ??? PRO UPPER GI ENDOSCOPY, BIOPSY N/A 11/22/2018 EGD WITH BIOPSY (WRVU 2.49) performed by David Dejesus MD at [facility] ENDOSCOPY ??? PRO UPPER GI ENDOSCOPY, BIOPSY N/A 03/01/2020 UPPER GASTROINTESTINAL ENDOSCOPY,WITH BIOPSY SINGLE OR MULTIPLE (WRVU 2.49) performed by David Dejesus MD at [facility] ENDOSCOPY ??? PRO UPPER GI ENDOSCOPY, BIOPSY N/A 09/23/2021 EGD WITH BIOPSY (WRVU 2.49) performed by David Dejesus MD at [facility] ENDOSCOPY ??? PRO UPPER GI ENDOSCOPY, BIOPSY N/A 03/31/2022 EGD WITH BIOPSY (WRVU 2.49) performed by David Dejesus MD at [facility] ENDOSCOPY ??? PRO UPPER GI ENDOSCOPY, BIOPSY N/A 07/03/2022 EGD WITH BIOPSY (WRVU 2.49) performed by David Dejesus MD at [facility] ENDOSCOPY ??? PRO UPPER GI ENDOSCOPY, DIAGNOSTIC N/A 04/03/2014 EGD, UPPER GI ENDOSCOPY performed by David Dejesus MD at [facility] ENDOSCOPY ??? PRO UPPER GI ENDOSCOPY, DIAGNOSTIC N/A 03/01/2020 EGD, UPPER GI ENDOSCOPY performed by David Dejesus MD at [facility] ENDOSCOPY Social History: Patient lives with her in a private home Home Setup: 3 HATTIE, then single floor DME: RW, rollator Baseline ADL/Mobility: Independent all ADL/IADL tasks. Drives. Ambulates w/o any AD. Her didier disability and she is his primary caregiver Precautions/Special Considerations: Fall; LLE WBAT; Dobhoff tube; [place] Subjective: [facility] Re: When asked where she was Objective: [...] to be determined Anticipated Discharge Disposition (OT): half-way facility Activity Recommendations: ?? Encourage use of [...] and measurable assessment of functional outcome. Pager: [phone] ADRIENNE ADLER OT 08/25/2022 Occupational Therapy Rehabilitation [...] Ovalocytes 1-5 /HPF Target Cells 1-5 /HPF Huron Cells 1-5 /HPF POCT Glucose Result Value [...] Farrell's esophagus presenting in transfer from [facility], suspected to be in cardiogenic shock [...] first dose, check VPA level (08/24) - APPAREL SALES ASSOCIATE to evaluate, pending recs Pulmonary: # Acute [...] barium swallow at this point and that APPAREL SALES ASSOCIATE is evaluating her regularly. Will plan for CTA cors and chest tomorrow rather than cath- discussed with . Transition from insulin gtt to basal/bolus, appreciate assistance of DM team. Milagros Hernandez MD Cardiovascular Medicine Personal Pager [phone] 08/25/2022 1:51 PM * Afia Bergeron, APPAREL SALES ASSOCIATE - 08/24/2022 5:57 PM EDT Speech Therapy [...] stool ball on CT. Plan is for [facility] medically optimized. APPAREL SALES ASSOCIATE service consulted 08/22/22 to assess oropharyngeal swallow [...] esophageal dysfunction Education: Pt verbally educated to APPAREL SALES ASSOCIATE role, results of this bedside reasesssment, and plan as outlined below. Pt verbalizes understanding and agreement with plan. Assessment: Pt was seen today for a follow-up APPAREL SALES ASSOCIATE visit/reassessment. Continues to demonstrate oropharyngeal dysphagia and overt signs of aspiration with trials at the bedside today. Suboptimal positioning likely contributing as pt refuses to sit upright > 30/40 degrees today, also easy to fatigue. For now will suggest ice chips in moderation with RN for oral comfort and swallow stimulation when she is awake/alert and agrees to sit more upright. APPAREL SALES ASSOCIATE will continue to follow with team. Pt [...] candidate for the current oral care pilot can router program taking place on specific units at [facility]. Please use LE oral suction toothbrushes to perform oral care 2-4x daily. ?? Pt will benefit from continued APPAREL SALES ASSOCIATE services while hospitalized Speech Therapy Goals: Pt will tolerate least restrictive diet without evidence of dysphagia / aspiration. Pt / caregiver will be independent with aspiration precautions, diet modifications, and safe swallowing strategies. Pt will maintain hydration / nutrition with optimal safety and efficiency. Plan: Therapy Frequency (APPAREL SALES ASSOCIATE Eval): 2-3 times/wk Patient / family are in agreement with treatment plan. Total Minutes (Speech Language Pathology): 25 Thank you for this consult with this patient. Please feel free to page me with any questions or concerns. Afia Bergeron M.S., [facility]APPAREL SALES ASSOCIATE Pager: [phone] Speech-Language Pathology Inpatient Rehabilitation Medicine * Danielito [...] stool ball on CT. Plan is for [facility] when medically optimized. Referred to PT for evaluation. Patient with the following active problems: Past Medical History: Diagnosis Date ??? Bipolar disorder 02/12/2022 Past Surgical History: Procedure Laterality Date ??? PRO COLONOSCOPY, BIOPSY N/A 03/20/2016 COLONOSCOPY FLEXIBLE, WITH BX performed by David Dejesus MD at [facility] ENDOSCOPY ??? PRO COLONOSCOPY, DIAGNOSTIC N/A 03/01/2020 COLONOSCOPY, DIAGNOSTIC performed by David Dejesus MD at [facility] ENDOSCOPY ??? PRO ENDOSCOPIC US EXAM, ESOPH N/A 03/31/2022 UPPER EUS- ENDOSCOPIC ULTRASOUND performed by David Dejesus MD at [facility] ENDOSCOPY ??? PRO UPPER GI ENDOSCOPY, BIOPSY N/A 04/03/2014 UPPER GASTROINTESTINAL ENDOSCOPY,WITH BIOPSY SINGLE OR MULTIPLE performed by [facility]at [facility] END[facility] ??? PRO UPPER GI ENDOSCOPY, BIOPSY N/A 03/20/2016 EGD WITH BIOPSY performed by David Dejesus MD at [facility] ENDOSCOPY ??? PRO UPPER GI ENDOSCOPY, BIOPSY N/A 11/22/2018 EGD WITH BIOPSY (WRVU 2.49) performed by David Dejesus MD at [facility] ENDOSCOPY ??? PRO UPPER GI ENDOSCOPY, BIOPSY N/A 03/01/2020 UPPER GASTROINTESTINAL ENDOSCOPY,WITH BIOPSY SINGLE OR MULTIPLE (WRVU 2.49) performed by David Dejesus MD at [facility] ENDOSCOPY ??? PRO UPPER GI ENDOSCOPY, BIOPSY N/A 09/23/2021 EGD WITH BIOPSY (WRVU 2.49) performed by David Dejesus MD at [facility] ENDOSCOPY ??? PRO UPPER GI ENDOSCOPY, BIOPSY N/A 03/31/2022 EGD WITH BIOPSY (WRVU 2.49) performed by David Dejesus MD at [facility] ENDOSCOPY ??? PRO UPPER GI ENDOSCOPY, BIOPSY N/A 07/03/2022 EGD WITH BIOPSY (WRVU 2.49) performed by David Dejesus MD at [facility] ENDOSCOPY ??? PRO UPPER GI ENDOSCOPY, DIAGNOSTIC N/A 04/03/2014 EGD, UPPER GI ENDOSCOPY performed by David Dejesus MD at [facility] ENDOSCOPY ??? PRO UPPER GI ENDOSCOPY, DIAGNOSTIC N/A 03/01/2020 EGD, UPPER GI ENDOSCOPY performed by David Dejesus MD at [facility] END[facility] Social History: Pt was [...] Objective: Pt seen for evaluation today in [facility]. Upon arrival, pt lying in bed with [...] for this consult. GENE YOUNG, PT Pager: [phone] Physical Therapy Inpatient Rehabilitation Department Time IN / OUT: 1479-1211 Total Time: (P) 40 ((8413-8929)) minutes, GENE YOUNG, PT Pager: [phone] Physical Therapy Inpatient Rehabilitation Department 2017 PT [...] DM, EtOH, esophagitis, who presented to [facility] 3 days ago after being found [...] was able to discuss plan with provider [facility] 1075. Current Nutrition Regimen: Active Orders Diet NPO [...] encounter: 69.3 kg (152 lb 12.5 oz). Almond Body Weight (IBW) (kg): 45.45 Wt Readings [...] up while inpatient Nancy Ernst RD Pager #:[phone] * Moustapha Gallegos MD - 08/24/2022 6:09 [...] Farrell's esophagus presenting in transfer from [facility], suspected to be in cardiogenic shock [...] 151 174 180 200* 189 194 Microbiology: 4/14 BAL Lower Resp culture NGTD, no microorganisms [...] first dose, check VPA level (08/24) - APPAREL SALES ASSOCIATE to evaluate Pulmonary: # Acute hypoxic respiratory [...] scans with CIC for now. Will ask APPAREL SALES ASSOCIATE to reassess and consult PT/OT for mobilization [...] of two midnights or is on the [facility] inpatient only procedure list (status C) due to: decompensated congestive heart failure requiring IV medication and fluid monitoring and acute respiratory compromise and/or hypoxiarequiring assessment every 4 hours and the ability to respond immediately to the patient's needs Milagros Hernandez MD Cardiovascular Medicine Personal Pager [phone] 08/24/2022 2:26 PM * Aileen Mayorga MD [...] Santos, DO ID Fellow Red Team Pager: [phone] ID ATTENDING I agree with assessment and recommendations above. I reviewed the data set and guided decision-making but did not re-examine the patient today. Parris Leyva MD Page [phone] * Neva Tomlin MD - 08/23/2022 7:09 [...] Farrell's esophagus presenting in transfer from [facility], suspected to be in cardiogenic shock [...] secretions and severedysphagia likely the underlying cdl bulk driver of her multifocal pneumonia. We will [...] of two midnights or is on the [facility] inpatient only procedure list (status C) due to: acute myocardial infarction requiring titration of IV medication and fluid monitoring and acute encephalopathy, severe dysphagia. Milagros Hernandez MD Cardiovascular Medicine Personal Pager [phone] 08/23/2022 8:44 PM * Briana Bryant, APPAREL SALES ASSOCIATE - 08/22/2022 12:30 PM EDT Speech Therapy [...] anemia,??GERD??c/b??esophagitis &??Farrell's esophagus??presenting in transfer from [facility], suspected to be in cardiogenic shock [...] candidate for the current oral care pilot can router program taking place on specific units at [facility]. Please use LE oral suction toothbrushes to perform oral care 2-4x daily. Pt will benefit from continued APPAREL SALES ASSOCIATE services while hospitalized Speech Therapy Goals: (To [...] Pt./family are in agreement with treatment plan. APPAREL SALES ASSOCIATE session: 24 min Thank you for this consult with this patient. Please feel free to page me with any questions or concerns. Briana Bryant MA, [facility]APPAREL SALES ASSOCIATE Pager: [phone] Speech-Language Pathology Inpatient Rehabilitation Medicine * Aileen [...] Farrell's esophagus presenting in transfer from [facility], suspected to be in cardiogenic shock [...] troublemanaging her secretions and overtly failed her APPAREL SALES ASSOCIATE evaluation as expected. She is being maintained [...] of two midnights or is on the [facility] inpatient only procedure list (status C) due to: multifocal aspiration pneumoniawith respiratory compromise, altered mental status/ toxic metabolic encephalopathy, severe protein calorie malnutrition, stercoral colitis, acute anemia requiring transfusion. Milagros Hernandez MD Cardiovascular Medicine Personal Pager [phone] 08/22/2022 4:13 PM * Rock Purcell, RT [...] 10/8 21%, alert oriented and following commands. [id number]: SBT Passed on CPAP +5 21%, Pre [...] for Consult? finanacial concerns Social Work Response: DIRECT CHILL CASTING OPERATOR met with Ishan's , Antonio, and their son to offer support and follow up on social work consult. DIRECT CHILL CASTING OPERATOR encouraged Antonio to reach out to their Choices for Care liaisonfor questions related to caregiver benefits, including short term disability. DIRECT CHILL CASTING OPERATOR also provided Antonio with information for Emergency/General Assistance and [place] [phone]. This DIRECT CHILL CASTING OPERATOR provided contact information for the Office of [...] Farrell's esophagus presenting in transfer from [facility], suspected to be in cardiogenic shock [...] PHART 7.56* -- 7.54* 7.51* 7.48* 7.53* [id number] 31* -- 31* 30* 34* 26* PO2ART 92 -- 73* 62* 78* 48* [id number] 27.3* -- 25.7 23.2 25.0 21.2 LACTATEVEN 1.6 1.6 1.2 1.6 1.5 1.3 [id number] 30 -- 30 30 30 21 PFRATIOART2 307 -- 243 207 260 229 VBG (Venous Blood Gas) Recent Labs 08/20/22 0541 08/19/22 1445 08/19/22 0507 08/18/2261408/16/222008 LACTATEVEN 1.6 1.6 1.2 1.6 1.5 Mixed Venous Sat Recent Labs 08/16/22201108/16/22 1558 08/16/22 1211 08/16/22 1117 08/16/22 0948 [id number] 56.6 50.5 56.0 49.3 56.5 Objective: Vitals [...] PHART 7.56* -- 7.54* 7.51* 7.48* 7.53* [id number] 31* -- 31* 30* 34* 26* PO2ART 92 -- 73* 62* 78* 48* RAQ8PUD 27.3* -- 25.7 23.2 25.0 21.2 LACTATEVEN 1.6 1.6 1.2 1.6 1.5 1.3 OHV3PUF 30 -- 30 30 30 21 PFRATIOART2 307 -- 243 207 260 229 VBG (Venous Blood Gas) Recent Labs 08/20/22 0541 08/19/22 1445 08/19/22 0507 08/18/22 0615 08/16/222008 LACTATEVEN 1.6 1.6 1.2 1.6 1.5 Mixed Venous Sat Recent Labs 08/16/22201108/16/22 1558 08/16/22 1211 08/16/22 1117 08/16/22 0948 [id number] 56.6 50.5 56.0 49.3 56.5 Microbiology: 08/19, [...] stable. Continue supportive care. Appreciate input from design center consultant services. Attending Attestation and Certification Please [...] of two midnights or is on the [facility] inpatient only procedure list (status C) due to: decompensated congestive heart failure requiring IV medication and fluid monitoring, acute respiratory compromise and/or hypoxia requiring assessment every 4 hours and the ability to respond immediately to the patient's needs, and multifocal pneumonia requiring IV antibiotic therapy. Milagros Hernandez MD Cardiovascular Medicine Personal Pager [phone] 08/21/2022 3:38 PM * Parris Leyva MD [...] Garsia MD Infectious Diseases Fellow- PGY4 Pager: [phone] 08/21/2022 8:14 AM ID ATTENDING I agree [...] should be followed. Parris Leyva MD Page [phone] All of this 35 minute visit were spent on the unit in coordination of care for the patient, regarding treatment of infection as detailed in note above. * Nancy Ernst, HUGH - 08/21/2022 8:10 AM EDT Nutrition Progress Note Ishan Irving is a 62 y.o.??female??with h/o bipolar, DM, EtOH, esophagitis, who presented to [facility] 3 days ago after being found [...] was able to discuss plan with provider [facility] 5904. Current Nutrition Regimen: Active Orders Diet [...] silicone 14 10 10 08/15/22 0136 -- 6 Physical Findings Gastrointestinal: feeding tube [...] encounter: 72.5 kg (159 lb 13.3 oz). Almond Body Weight (IBW) (kg): 45.45 Wt Readings [...] up while inpatient Nancy Ernst RD Pager #:[phone] * Graciela Mcleod RCP - 08/21/2022 6:09 [...] support. There was no answer, so this procedure writer left voicemail with contact information. UPDATE: MACY received call back from Ishan's , Antonio, this afternoon. This DIRECT CHILL CASTING OPERATOR and Antonio plan to meet when he is at the hospital tomorrow to discuss his questions related to disability benefits. Follow Up Needed: Follow for SW support * Alfonso Blackwood MD - 08/20/2022 8:26 AM EDT Critical Care Medicine Staff Progress Note 62 y.o. female with h/o bipolar, DM, EtOH, esophagitis, who presented to [facility] 3 days ago after being found unresponsive at home. Patient found to have likely pneumonia +/- aspiration, newly reduced EF. 24 hr events/subjective: -on beta blockers -afebrile, high WBC -Secretions - moderate -I/Os positive last 24 hours -now following commands. -MRI results reviewed. ASSESSMENT, MANAGEMENT, and DECISION MAKING: Patient is a 62 yo female with h/o bipolar, EtOH who presented to [facility] 08/12 after being found unresponsive by [...] Farrell's esophagus presenting in transfer from [facility], suspected to be in cardiogenic shock [...] PHART 7.56* -- 7.54* 7.51* 7.48* 7.53* ZZF1APL 31* -- 31* 30* 34* 26* PO2ART 92 -- 73* 62* 78* 48* MVV2CLJ 27.3* -- 25.7 23.2 25.0 21.2 LACTATEVEN 1.6 1.6 1.2 1.6 1.5 1.3 CBZ2ICQ 30 -- 30 30 30 21 PFRATIOART2 307 -- 243 207 260 229 VBG (Venous Blood Gas) Recent Labs 08/20/22 0541 08/19/22 1445 08/19/22 0507 08/18/2261408/16/222008 LACTATEVEN 1.6 1.6 1.2 1.6 1.5 Mixed Venous Sat Recent Labs 08/16/22201108/16/22 1558 08/16/22 1211 08/16/22 1117 08/16/22 0948 [id number] 56.6 50.5 56.0 49.3 56.5 Objective: Vitals [...] PHART 7.56* -- 7.54* 7.51* 7.48* 7.53* LYP1JUJ 31* -- 31* 30* 34* 26* PO2ART 92 -- 73* 62* 78* 48* ZEL5RWV 27.3* -- 25.7 23.2 25.0 21.2 LACTATEVEN 1.6 1.6 1.2 1.6 1.5 1.3 TZS5QWX 30 -- 30 30 30 21 PFRATIOART2 307 -- 243 207 260 229 VBG (Venous Blood Gas) Recent Labs 08/20/22 0541 08/19/22 1445 08/19/22 0507 08/18/22 0615 08/16/222008 LACTATEVEN 1.6 1.6 1.2 1.6 1.5 Mixed Venous Sat Recent Labs 08/16/22201108/16/22 1558 08/16/22 1211 08/16/22 1117 08/16/22 0948 [id number] 56.6 50.5 56.0 49.3 56.5 Microbiology: 08/14, [...] potential sources identified. Low overall suspicion for DIE SET UP WORKER infection given recent MRI and improvement in [...] zac Avila MD Internal Medicine, PGY-1 Cardiology [facility] #[id number] Cardiology Staff Addendum ?? Ishan Johanny Irving??is a 62 y.o.??female??whom I saw today [...] Shashi Young - 08/19/2022 1:25 PM EDT Manager Trading Encounter Note Patient Name: Ishan Irving : [id number] MR#: [id number] Admit Date: 08/14/2022 11:11 PM Hospital Day 5 days Narrative: Self initiated visit to patient for Spiritual support in a regular unit rounds. Assessment: Patient is very busy with nurses. Not a good time for Potato Bucker visit. Intervention and Outcome: An attempted visit [...] for Consult? finanacial concerns Social Work Response: DIRECT CHILL CASTING OPERATOR attempted to contact Ishan's , Antonio, to offer support. No one picked up, so DIRECT CHILL CASTING OPERATOR left message with contact information. Follow Up Needed: Follow for continued support. * Neva Erazo PT - 08/19/2022 11:37 AM EDT PT Note Pt remains intubated and not yet approp for PT evaluation. Will follow-up when approp. Neva Erazo PT Pager [phone] * Adeola Russo RCP - 08/19/2022 9:19 [...] DM, EtOH, esophagitis, who presented to [facility] 3 days ago after being found [...] able to discuss plan with provider [facility] [id number]. Current Nutrition Regimen: Active Orders Diet [...] encounter: 73.1 kg (161 lb 2.5 oz). Almond Body Weight (IBW) (kg): 45.45 Wt Readings [...] up while inpatient Nancy Ernst RD Pager #:[phone] * Carlos Terry MD - 08/19/2022 8:13 [...] Farrell's esophagus presenting in transfer from [facility], suspected to be in cardiogenic shock [...] Gas) Recent Labs 08/19/22 0507 08/18/22 0615 08/16/22200808/16/22175808/16/22 1602 PHART 7.54* 7.51* 7.48* 7.53* 7.53* ZOL3JEO 31* 30* 34* 26* 30* PO2ART 73* 62* 78* 48* 55* PPS4BFN 25.7 23.2 25.0 21.2 24.9 LACTATEVEN 1.2 1.6 1.5 1.3 1.5 GGH6FEB 30 30 30 21 21 PFRATIOART2 243 207 260 229 262 VBG (Venous Blood Gas) Recent Labs 08/19/22 0507 08/18/22 0615 08/16/22200808/16/22175808/16/22 1602 LACTATEVEN 1.2 1.6 1.5 1.3 1.5 Mixed Venous Sat Recent Labs 08/16/22201108/16/22 1558 08/16/22 1211 08/16/22 1117 08/16/22 0948 [id number] 56.6 50.5 56.0 49.3 56.5 Objective: Vitals [...] Vitals for the past 168 hrs: Weight 04/12/23 0206 73.1 kg (161 lb 2.5 oz) [...] 1602 PHART 7.54* 7.51* 7.48* 7.53* 7.53* [id number] 31* 30* 34* 26* 30* PO2ART 73* 62* 78* 48* 55* FNR3IJL 25.7 23.2 25.0 21.2 24.9 LACTATEVEN 1.2 1.6 1.5 1.3 1.5 WFM0PJM 30 30 30 21 21 PFRATIOART2 243 207 260 229 262 VBG (Venous Blood Gas) Recent Labs 08/19/22 0507 08/18/22 0615 08/16/22200808/16/22 1759 08/16/22 1602 LACTATEVEN 1.2 1.6 1.5 1.3 1.5 Mixed Venous Sat Recent Labs 08/16/22201108/16/22 1558 08/16/22 1211 08/16/22 1117 08/16/22 0948 [id number] 56.6 50.5 56.0 49.3 56.5 Microbiology: 08/14, [...] from hemodynamic perspective, off dobutamine/pressors and with [place] now removed. Still intubated with minimal support, but unfortunately mental status continues to preclude extubation despite sedation now being held for 48 hours. Neurology was consulted yesterday given continued altered mental status, and recommended CTH/EEG. CT Head was unremarkable, and EEG demonstrated findings consistent with toxic metabolic encephalopathy. Will reach out to neurology today regarding possibleneed for MRI vs. DIE SET UP WORKER infection workup. Will diurese given net positivity [...] [facility] #[id number] Cardiology Staff Addendum ?? Ishan M Irving is a 62 y.o. female whom [...] DM, EtOH, esophagitis, who presented to [facility] 3 days ago after being found unresponsive at home. Patient found to have likely pneumonia +/- aspiration, newly reduced EF. 24 hr events/subjective: -on beta blockers -afebrile, high WBC -Secretions - moderate -I/Os positive last 24 hours -still not following commands. ASSESSMENT, MANAGEMENT, and DECISION MAKING: Patient is a 62 yo female with h/o bipolar, EtOH who presented to [facility] 08/12 after being found unresponsive by [...] DM, EtOH, esophagitis, [facility] [facility] 3 days ago after being found [...] h/o bipolar, EtOH who presented to [facility] 08/12 after being found unresponsive by [...] Farrell's esophagus presenting in transfer from [facility], suspected to be in cardiogenic shock and found to be in mixed shock with concern for stress cardiomyopathy. 24 Hour Events/Subjective: Overnight: - NAEON. Vent settings PS 30% FiO2 13/8, 376Tv, though mildly tachypneic 23- 28RR. Passed SVT. Cardiac numbers CI 2.8, SVR 1500, PA 31/15, 20 this AM off pressors and dobutamine. Sedation off. Last ABG 7.51. This AM: - Resting comfortably in no [...] 1216 PHART 7.51* 7.48* 7.53* 7.53* 7.52* OMD7VMM 30* 34* 26* 30* 30* PO2ART 62* 78* 48* 55* 59* GVR3ZBQ 23.2 25.0 21.2 24.9 24.2 LACTATEVEN 1.6 1.5 1.3 1.5 1.8 HFH5TEN 30 30 21 21 21 PFRATIOART2 207 260 229 262 281 VBG (Venous Blood Gas) Recent Labs 08/18/22 0615 08/16/22200808/16/22175808/16/22 1602 08/16/22 1216 LACTATEVEN 1.6 1.5 1.3 1.5 1.8 Mixed Venous Sat Recent Labs 08/16/22201108/16/22 1558 08/16/22 1211 08/16/22 1117 08/16/22 0948 [id number] 56.6 50.5 56.0 49.3 56.5 PA Catheter #'s PA Catheter PAP (mmHg): 31/15 (08/18/22 08) PAP (mean): 20 (08/18/22 08) PCWP (mmHg): 6 mmHg (08/16/222014) CO (l/min): [...] 0045 08/16/22 1800 08/16/22 0810 08/16/22 0336 08/15/22213908/15/22 1620 08/15/22 0950 08/15/22 0305 08/14/22 2355 [...] 0615 08/16/22200808/16/22 1759 08/16/22 1602 08/16/22 1216 PHART 7.51* 7.48* 7.53* 7.53* 7.52* QGC0PEC 30* 34* 26* 30* 30* PO2ART 62* 78* 48* 55* 59* DWF4POP 23.2 25.0 21.2 24.9 24.2 LACTATEVEN 1.6 1.5 1.3 1.5 1.8 LJJ3EPG 30 30 21 21 21 PFRATIOART2 207 260 229 262 281 VBG (Venous Blood Gas) Recent Labs 08/18/22 0615 08/16/22200808/16/22 1759 08/16/22 1602 08/16/22 1216 LACTATEVEN 1.6 1.5 1.3 1.5 1.8 Mixed Venous Sat Recent Labs 08/16/22201108/16/22 1558 08/16/22 1211 08/16/22 1117 08/16/22 0948 [id number] 56.6 50.5 56.0 49.3 56.5 Microbiology: 08/14, [...] pressor/inotrope support today and thus will remove [place] catheter. She is also on minimal ventilator [...] DM, EtOH, esophagitis, who presented to [facility] 3 days ago after being found [...] was able to discuss plan with provider [facility] 5904. All Active TF Orders: Tubefeeding Orders [...] encounter: 71.9 kg (158 lb 8 oz). Almond Body Weight: 45.5 kg Usual Body Weight: [...] up while inpatient Nancy Ernst RD Pager #:[phone] * Jigar Cherry RN - 08/17/2022 10:09 [...] DM, EtOH, esophagitis, who presented to [facility] 3 days ago after being found [...] T/L/D [place]rae 08/15 ETT 08/14 CVL 08/15 [place] 08/15 ASSESSMENT, MANAGEMENT, and DECISION MAKING: Patient is a 62 yo female with h/o bipolar, EtOH who presented to [facility] 08/12 after being found unresponsive by [...] Farrell's esophagus presenting in transfer from [facility], suspected to be in cardiogenic shock [...] % ABG (Arterial Blood Gas) Recent Labs 08/16/22200808/16/22 17508/16/22 1602 08/16/22 1216 08/16/22 0817 PHART 7.48* 7.53* 7.53* 7.52* 7.46* JIQ7OPP 34* 26* 30* 30* 36 PO2ART 78* 48* 55* 59* 68* PKJ6LAW 25.0 21.2 24.9 24.2 24.8 LACTATEVEN 1.5 1.3 1.5 1.8 2.2 VST5HYR 30 21 21 21 21 PFRATIOART2 260 229 262 281 324 VBG (Venous Blood Gas) Recent Labs 08/16/22200808/16/22 17508/16/22 1602 08/16/22 1216 08/16/22 0817 LACTATEVEN 1.5 1.3 1.5 1.8 2.2 Mixed Venous Sat Recent Labs 08/16/22201108/16/22 1558 08/16/22 1211 08/16/22 1117 08/16/22 0948 [id number] 56.6 50.5 56.0 49.3 56.5 PA Catheter [...] 0817 PHART 7.48* 7.53* 7.53* 7.52* 7.46* WLS4LMD 34* 26* 30* 30* 36 PO2ART 78* 48* 55* 59* 68* BQF2BWE 25.0 21.2 24.9 24.2 24.8 LACTATEVEN 1.5 1.3 1.5 1.8 2.2 CBS2IAO 30 21 21 21 21 PFRATIOART2 260 229 262 281 324 VBG (Venous Blood Gas) Recent Labs 08/16/22200808/16/22175808/16/22 1602 08/16/22 1216 08/16/22 0817 LACTATEVEN 1.5 1.3 1.5 1.8 2.2 Mixed Venous Sat Recent Labs 08/16/22201108/16/22 1558 08/16/22 1211 08/16/22 1117 08/16/22 0948 R5HPDM8 56.6 50.5 56.0 49.3 56.5 Troponin - [...] significant improvement in cardiac index. Contacted [facility] this morning, 72hr BCx remain NGTD. [...] zac Avila MD Internal Medicine, PGY-1 Cardiology [facility] #[id number] Cardiology Staff Addendum ?? Ishan Irving??is [...] FACP, FASE Cardiovascular Medicine * Richard Alva, DESKTOP ADMINISTRATOR - 08/16/2022 10:32 PM EDT AMV Protocol: [...] to manage per AMV/SBT protocol. RICHARD ALVA DESKTOP ADMINISTRATOR * Adi Luo RCP - 08/16/2022 3:59 [...] DM, EtOH, esophagitis, who presented to [facility] 3 days ago after being found [...] T/L/D [place] 08/15 ETT 08/14 CVL 08/15 [place] 08/15 ASSESSMENT, MANAGEMENT, and DECISION MAKING: Patient is a 62 yo female with h/o bipolar, EtOH who presented to [facility] 08/12 after being found unresponsive by [...] PCP: Chris Stanley APRN PCP phone number: [phone] Date of Admission: 08/14/2022 ( Hospital Day [...] Farrell's esophagus presenting in transfer from [facility], suspected to be in cardiogenic shock [...] Units/min (08/16/22848) ??? DOBUTamine 5 mcg/kg/min (08/16/22 0800) ??? fentaNYL Stopped (08/16/22804) ??? propofoL 20 [...] ABG (Arterial Blood Gas) Recent Labs 08/16/22 0808/16/22 04408/15/22 23508/15/22200708/15/22 1616 PHART 7.46* 7.47* 7.46* 7.44 7.38 CUI3ZRW 36 34* 36 30* 36 PO2ART 68* 71* 75* 78* 78* VBU7CCM 24.8 24.5 24.7 19.7* 20.8 LACTATEVEN 2.2 1.7 2.2 1.6 1.8 OOS9JKE 21 25 25 25 30 PFRATIOART2 324 284 300 312 260 VBG (Venous Blood Gas) Recent Labs 08/16/22 0817 08/16/2244008/15/22235808/15/22200708/15/22 1616 LACTATEVEN 2.2 1.7 2.2 1.6 1.8 Mixed Venous Sat Recent Labs 08/16/22 0820 08/16/22 0444 08/16/22 0213 08/16/22 0004 08/15/222009 R6FAZO2 48.7 54.2 51.3 46.3 49.8 PA Catheter #'s PA Catheter PAP (mmHg): 30/17 (08/16/22599) PAP (mean): 22 (08/16/22599) CO (l/min): 3 l/min (08/16/22799) CI (l/min/m2): 1.8 l/min/m2 (08/16/22799) SVR (dyne*sec)/cm2: 1680 (dyne*sec)/cm2 (08/16/22799) SVRI (dyne*sec)/cm2: 2587 (dyne*sec)/cm5 (08/15/221154) Stroke Volume (ml): 30.5 ml (08/15/22 1155) [...] Recent Labs 08/16/22 0817 08/16/22 0441 08/15/22 23508/15/22200708/15/22 1616 PHART 7.46* 7.47* 7.46* 7.44 7.38 SID7SHQ 36 34* 36 30* 36 PO2ART 68* 71* 75* 78* 78* XWU0ZOJ 24.8 24.5 24.7 19.7* 20.8 LACTATEVEN 2.2 1.7 2.2 1.6 1.8 JPN5AOE 21 25 25 25 30 PFRATIOART2 324 284 300 312 260 VBG (Venous Blood Gas) Recent Labs 08/16/22 0817 08/16/22 0441 08/15/22235808/15/22200708/15/22 1616 LACTATEVEN 2.2 1.7 2.2 1.6 1.8 Mixed Venous Sat Recent Labs 08/16/22 0820 08/16/22 0444 08/16/22 0213 08/16/22 0004 08/15/222009 N4MBIG3 48.7 54.2 51.3 46.3 49.8 Troponin - [...] significant improvement in cardiac index. Contacted [facility] this morning, 72hr BCx remain NGTD. [...] zac Avila MD Internal Medicine, PGY-1 Cardiology [facility] #[id number] Cardiology Staff Addendum ?? Ishan Irving??is [...] FACP, FASE Cardiovascular Medicine * Richard Alva, DESKTOP ADMINISTRATOR - 08/15/2022 9:04 PM EDT AMV Protocol: [...] was transferred to the ED at [facility]. Per the patient she was following simple commands while at [facility]. Discussed her current status with the family at the bedside. * Vanessa Escalona MD - 08/15/2022 10:28 AM EDT Critical Care Medicine Staff Progress Note 62 y.o. female with h/o bipolar, DM, EtOH, esophagitis, who presented to [facility] 3 days ago after being found [...] heparin, ASA and Lasix. En route to [facility] her pressor requirement increased to include [...] h/o bipolar, EtOH who presented to [facility] 08/12 after being found unresponsive by [...] PCP: Chris Stanley APRN PCP phone number: [phone] Date of Admission: 08/14/2022 ( Hospital Day [...] Farrell's esophagus presenting in transfer from [facility], suspected to be in cardiogenic shock and found to be in mixed shock with concern for stress cardiomyopathy. 24 Hour Events/Subjective: Yesterday: -- Overnight: - [place] was floated - now off dobutamine and [...] Gas) Recent Labs 08/15/22 0555 08/15/22 0531 08/15/2231008/14/22 235 PHART -- 7.30* 7.25* 7.25* LFG8UOW -- 41 38 42 PO2ART -- 117* 112* 242* MEI5XGT -- 19.6* 16.0* 17.9* LACTATEVEN 3.1* 3.6* 1.9 2.6* NCK6MMG -- 40 40 60 PFRATIOART2 -- 292 280 403 VBG (Venous Blood Gas) Recent Labs 08/15/22 0555 08/15/22 0531 08/15/2231008/14/222356 LACTATEVEN 3.1* 3.6* 1.9 2.6* Mixed Venous Sat Recent Labs 08/15/22 0533 08/15/22 0113 [id number] 63.7 63.3 PA Catheter #'s PA Catheter [...] hip. Neuro: RASS -5 Labs: Recent Labs 08/15/2230408/14/222354 WBC 39.8* 36.7* HGB 10.2* 10.7* HCT 34.4* 35.9 PLATELET 350 370* MCV 67.7* 68.0* Recent Labs 08/15/2230408/14/22 2355 NA 140 141 CL 104 107 CO2 Not Perf 17* K 3.7 4.0 MAGNESIUM 0.90 0.97 PHOS 5.3* 5.9* CALCIUM 8.3* 8.5 BUN 38* 36* CREATININE 1.42* 1.40* LFTs Recent Labs 08/15/22 030 PROT 5.6* ALBUMIN 2.4* AST 25 ALT [...] 08/14/22 2357 PHART -- 7.30* 7.25* 7.25* GRV7IDE -- 41 38 42 PO2ART -- 117* 112* 242* WEG6JTY -- 19.6* 16.0* 17.9* LACTATEVEN 3.1* 3.6* 1.9 2.6* TAL7PQZ -- 40 40 60 PFRATIOART2 -- 292 280 403 VBG (Venous Blood Gas) Recent Labs 08/15/22 0555 08/15/22 0531 08/15/22 0311 08/14/22 2357 LACTATEVEN 3.1* 3.6* 1.9 2.6* Mixed Venous Sat Recent Labs 08/15/22 0533 08/15/22 0113 [id number] 63.7 63.3 Troponin HS: 617 at midnight [...] first few days of hospitalization at [facility]. Will keep her on broad spectrum antibiotics. Will monitor blood cultures obtained here as well as those obtained at [facility] prior to transfer. Her TTE appears [...] Abx: Vancomycin & zosyn - Call [facility] in AM to inquire about blood culture results #Routine Diet: NPO diet (Give Meds) DVT prophylaxis: heparin gtt GI Prophylaxis: home PPI Code Status: Attempt Cardiopulmonary Resuscitation - Inpatient Alternative Medical Decision Maker: zac Streeter MD Internal Medicine, PGY-2 Cardiology [facility] #[id number] Cardiology Staff Addendum ?? Ishan Irving [...] dry. 1755: Report given to 1 David RN Juliette. 1800: Phase 2 criteria met. [...] by David Dejesus MD at [facility] ENDOSCOPY ??? PRO COLONOSCOPY, DIAGNOSTIC N/A 03/01/2020 COLONOSCOPY, DIAGNOSTIC performed by David Dejesus MD at [facility] ENDOSCOPY ??? PRO ENDOSCOPIC US EXAM, ESOPH N/A 03/31/2022 UPPER EUS- ENDOSCOPIC ULTRASOUND performed by David Dejesus MD at [facility] ENDOSCOPY ??? PRO UPPER GI ENDOSCOPY, BIOPSY N/A 04/03/2014 UPPER GASTROINTESTINAL ENDOSCOPY,WITH BIOPSY SINGLE OR MULTIPLE performed by David Dejesus MDat [facility] ENDOSCOPY ??? PRO UPPER GI ENDOSCOPY, BIOPSY N/A 03/20/2016 EGD WITH BIOPSY performed by David Dejesus MD at [facility] ENDOSCOPY ??? PRO UPPER GI ENDOSCOPY, BIOPSY N/A 11/22/2018 EGD WITH BIOPSY (WRVU 2.49) performed by David Dejesus MD at [facility] ENDOSCOPY ??? PRO UPPER GI ENDOSCOPY, BIOPSY N/A 03/01/2020 UPPER GASTROINTESTINAL ENDOSCOPY,WITH BIOPSY SINGLE OR MULTIPLE (WRVU 2.49) performed by David Dejesus MD at [facility] ENDOSCOPY ??? PRO UPPER GI ENDOSCOPY, BIOPSY N/A 09/23/2021 EGD WITH BIOPSY (WRVU 2.49) performed by David Dejesus MD at [facility] ENDOSCOPY ??? PRO UPPER GI ENDOSCOPY, BIOPSY N/A 03/31/2022 EGD WITH BIOPSY (WRVU 2.49) performed by David Dejesus MD at [facility] ENDOSCOPY ??? PRO UPPER GI ENDOSCOPY, BIOPSY N/A 07/03/2022 EGD WITH BIOPSY (WRVU 2.49) performed by David Dejesus MD at [facility] ENDOSCOPY ??? PRO UPPER GI ENDOSCOPY, DIAGNOSTIC N/A 04/03/2014 EGD, UPPER GI ENDOSCOPY performed by David Dejesus MD at [facility] ENDOSCOPY ??? PRO UPPER GI ENDOSCOPY, DIAGNOSTIC N/A 03/01/2020 EGD, UPPER GI ENDOSCOPY performed by David Dejesus MD at [facility] ENDOSCOPY Medications: No current facility-administered [...] Roland Pruett MD PCP: Chris Stanley APRN ([phone]) No chief complaint on file. ID: Ishan Irving is a 62 y.o. female w/ PMH of ??recent L femoral neck fracture,??bipolar disorder, resolving medication-induced Parkinsonism, insulin- dependent diabetes mellitus,??hx of alcohol use disorder (reported to be in remission for 1.5 years) c/b chronic pancreatitis, iron deficiency anemia,??GERD??c/b??esophagitis &??Farrell's esophagus, transferred from [facility] to [facility] on 08/14/2022, now on Hospital Day [...] deficiency anemia,?? GERD??c/b??esophagitis &??Farrell's esophagus, admitted to [facility] on 08/14/2022, now on Hospital Day [...] narcan with minimal response. Brought to [facility] and given additional narcan with no response. OSH Labs prior to transfer to [facility] Cardiology Team: Labs: - ABG: pH [...] on diuresis with lasix and transferred to [facility] on 08/14. Patient arrived to [facility] requiring approximately NE30, dobutamine 2.5, and epi 5. Patient was started on goal directed therapy with losartan, metoprolol 25mg daily, spirinolactone 25mg daily, qqfmyfzu25-44kq daily and additionally started on empagliflozin 10mg daily. Patient being followed by [employer] and recommend NPO given significant dysphagia. Patient [...] by David Dejesus MD at [facility] ENDOSCOPY ??? PRO COLONOSCOPY, DIAGNOSTIC N/A 03/01/2020 COLONOSCOPY, DIAGNOSTIC performed by David Dejesus MD at [facility] ENDOSCOPY ??? PRO ENDOSCOPIC US EXAM, ESOPH N/A 03/31/2022 UPPER EUS- ENDOSCOPIC ULTRASOUND performed by David Dejesus MD at [facility] ENDOSCOPY ??? PRO UPPER GI ENDOSCOPY, BIOPSY N/A 04/03/2014 UPPER GASTROINTESTINAL ENDOSCOPY,WITH BIOPSY SINGLE OR MULTIPLE performed by David Dejesus MDat [facility] ENDOSCOPY ??? PRO UPPER GI ENDOSCOPY, BIOPSY N/A 03/20/2016 EGD WITH BIOPSY performed by David Dejesus MD at [facility] ENDOSCOPY ??? PRO UPPER GI ENDOSCOPY, BIOPSY N/A 11/22/2018 EGD WITH BIOPSY (WRVU 2.49) performed by David Dejesus MD at [facility] ENDOSCOPY ??? PRO UPPER GI ENDOSCOPY, BIOPSY N/A 03/01/2020 UPPER GASTROINTESTINAL ENDOSCOPY,WITH BIOPSY SINGLE OR MULTIPLE (WRVU 2.49) performed by David Dejesus MD at [facility] ENDOSCOPY ??? PRO UPPER GI ENDOSCOPY, BIOPSY N/A 09/23/2021 EGD WITH BIOPSY (WRVU 2.49) performed by David Dejesus MD at [facility] ENDOSCOPY ??? PRO UPPER GI ENDOSCOPY, BIOPSY N/A 03/31/2022 EGD WITH BIOPSY (WRVU 2.49) performed by David Dejesus MD at [facility] ENDOSCOPY ??? PRO UPPER GI ENDOSCOPY, BIOPSY N/A 07/03/2022 EGD WITH BIOPSY (WRVU 2.49) performed by David Dejesus MD at [facility] ENDOSCOPY ??? PRO UPPER GI ENDOSCOPY, DIAGNOSTIC N/A 04/03/2014 EGD, UPPER GI ENDOSCOPY performed by David Dejesus MD at [facility] ENDOSCOPY ??? PRO UPPER GI ENDOSCOPY, DIAGNOSTIC N/A 03/01/2020 EGD, UPPER GI ENDOSCOPY performed by David Dejesus MD at [facility] ENDOSCOPY Social History: Social History [...] Gas): No results found for: PHART, PO2ART, IBM3FVM, FWF1PZM VBG (Venous Blood Gas): No results for input(s): PHVEN, PVT6KGN, PO2VEN, HBB2FYF, BEVEN, FPU2XOJ in the last 72 hours. EKG: Lab [...] who have questions please contact the health patient care technician instructor that requested your imaging first. Abdomen 1 [...] who have questions please contact the health patient care technician instructor that requested your imaging first. Chest One [...] who have questions please contact the health patient care technician instructor that requested your imaging first. Abdomen 1 [...] who have questions please contact the health patient care technician instructor that requested your imaging first. Chest One [...] who have questions please contact the health patient care technician instructor that requested your imaging first. Head wo [...] who have questions please contact the health patient care technician instructor that requested your imaging first. Electronically signed by: Moustapha Correa MD, [facility] ([phone]), at 08/16/2022 11:19 PM XR Abdomen 1 [...] who have questions please contact the health patient care technician instructor that requested your imaging first. Head wo Contrast (Generic) (Exam End: 08/18/2022 3:14 PM) Impression No acute intracranial process. Thank you for letting us participate in the care of this patient. If you are a health care provider and have any questions regarding this report, please contact the number below. For patients who have questions please contact the health patient care technician instructor that requested your imaging first. Chest One [...] who have questions please contact the health patient care technician instructor that requested your imaging first. Brain wo Contrast (Exam End: 08/19/2022 10:15 PM) Impression No acute infarction, mass or mass effect. Thank you for letting us participate in the care of this patient. If you are a health care provider and have any questions regarding this report, please contact the number below. For patients who have questions please contact the health patient care technician instructor that requested your imaging first. Chest for [...] who have questions please contact the health patient care technician instructor that requested your imaging first. Hip w [...] who have questions please contact the health patient care technician instructor that requested your imaging first. Electronically signed by: Aicha Chowdhury MD, [facility] ([phone]), at 08/21/2022 9:[address] Chest w [...] who have questions please contact the health patient care technician instructor that requested your imaging first. Hip 2-3 Views Left (Exam End: 08/22/2022 12:19 AM) Impression No radiographic evidence of infection. Thank you for letting us participate in the care of this patient. If you are a health care provider and have any questions regarding this report, please contact the number below. For patients who have questions please contact the health patient care technician instructor that requested your imaging first. Electronically signed by: Viktor Cervantes MD, [facility] ([phone]), at 08/22/2022 12:43 PM XR Pelvis (Generic) (Exam End: 08/22/2022 12:19 AM) Impression No radiographic evidence of infection status post left hip ORIF. Thank you for letting us participate in the care of this patient. If you are a health care provider and have any questions regarding this report, please contact the number below. For patients who have questions please contact the health patient care technician instructor that requested your imaging first. Electronically signed by: Richard Billings MD, [facility] ([phone]), at 08/22/2022 10:[address] Angiogram Coronary [...] who have questions please contact the health patient care technician instructor that requested your imaging first. Chest wo Contrast (Generic) (Exam End: 08/27/2022 8:58 AM) Impression Stable findings of multifocal pneumonia. No interval abnormality. Thank you for letting us participate in the care of this patient. If you are a health care provider and have any questions regarding this report, please contact the number below. For patients who have questions please contact the health patient care technician instructor that requested your imaging first. Medications: Scheduled: [...] fracture s/p surgical fixation , admitted to [facility] on 08/14/2022, now on Hospital Day [...] level 08/29. - level 25mg/L 08/29 - [employer] to evaluate. - Reach out to neurology, [...] Internal Medicine PGY1 Medicine Team: Vega, Pager #[phone] Date: 08/30/2022 Associated attestation - Alfonso Navarrete MD - 08/30/2022 9:19 PM EDT [address] Medicine Service Attending Documentation I certify [...] -continue tube feeds via DHT -plan for [employer] evaluation and MBS tomorrow #stress cardiomyopathy -holding [...] by David Dejesus MD at [facility] ENDOSCOPY ??? PRO COLONOSCOPY, DIAGNOSTIC N/A 03/01/2020 COLONOSCOPY, DIAGNOSTIC performed by David Dejesus MD at [facility] ENDOSCOPY ??? PRO ENDOSCOPIC US EXAM, ESOPH N/A 03/31/2022 UPPER EUS- ENDOSCOPIC ULTRASOUND performed by David Dejesus MD at [facility] ENDOSCOPY ??? PRO UPPER GI ENDOSCOPY, BIOPSY N/A 04/03/2014 UPPER GASTROINTESTINAL ENDOSCOPY,WITH BIOPSY SINGLE OR MULTIPLE performed by David Dejesus MDat [facility] ENDOSCOPY ??? PRO UPPER GI ENDOSCOPY, BIOPSY N/A 03/20/2016 EGD WITH BIOPSY performed by David Dejesus MD at [facility] ENDOSCOPY ??? PRO UPPER GI ENDOSCOPY, BIOPSY N/A 11/22/2018 EGD WITH BIOPSY (WRVU 2.49) performed by David Dejesus MD at [facility] ENDOSCOPY ??? PRO UPPER GI ENDOSCOPY, BIOPSY N/A 03/01/2020 UPPER GASTROINTESTINAL ENDOSCOPY,WITH BIOPSY SINGLE OR MULTIPLE (WRVU 2.49) performed by David Dejesus MD at [facility] ENDOSCOPY ??? PRO UPPER GI ENDOSCOPY, BIOPSY N/A 09/23/2021 EGD WITH BIOPSY (WRVU 2.49) performed by David Dejesus MD at [facility] ENDOSCOPY ??? PRO UPPER GI ENDOSCOPY, BIOPSY N/A 03/31/2022 EGD WITH BIOPSY (WRVU 2.49) performed by David Dejesus MD at [facility] ENDOSCOPY ??? PRO UPPER GI ENDOSCOPY, BIOPSY N/A 07/03/2022 EGD WITH BIOPSY (WRVU 2.49) performed by David Dejesus MD at [facility] ENDOSCOPY ??? PRO UPPER GI ENDOSCOPY, DIAGNOSTIC N/A 04/03/2014 EGD, UPPER GI ENDOSCOPY performed by David Dejesus MD at [facility] ENDOSCOPY ??? PRO UPPER GI ENDOSCOPY, DIAGNOSTIC N/A 03/01/2020 EGD, UPPER GI ENDOSCOPY performed by David Dejesus MD at [facility] ENDOSCOPY Social History and Habits: [...] PCP: Chris Stanley APRN PCP phone number: [phone] Date of Admission: 08/14/2022 ( Hospital Day [...] Farrell's esophagus presenting in transfer from [facility], suspected to be in cardiogenic shock. [...] to 4L NC. On arrival to [facility], the patient was given further doses [...] (80 lasix) & dobutamine withconsequent transfer to [facility]. On arrival, the patient was requiring [...] to touch. Neuro: RASS -5 Lines/Drains/Airways Lines: [place], A line, central line EKG (08/15/22): Sinus [...] in the last 7068 hours. Invalid input(s): [id number] No results for input(s): POCGLU in the last 168 hours. Heme No results for input(s): LDH, HAPTOGLOBIN, URICACID in the last 168 hours. ABG (Arterial Blood Gas) No results found for: PHART, PO2ART, QUF0MRN, BMB7SJL Microbiology: Microbiology Results (Last 30 days) No [...] Abx: Vancomycin & zosyn - Call [facility] in AM to inquire about blood [...] sterile barriertechnique was used throughout. A 4 Malaysian glide catheter was placed as a nasoenteric [...] a suspected line-associated infection. Location of Procedure: [facility] Risks and Benefits: The risks and benefits [...] to the planned procedure. Hand Hygiene: The hand inserter operator did perform hand hygiene prior to line insertion. Catheter type: PICC Lot number: [id number] Procedure Technique: Skin was prepped with chlorhexidine. [...] EEG ROUTINE - PROCDOC Pre-Procedure Diagnose(s): Encephalopathy [place] [facility] Department of Neurology Inpatient Routine EEG Report [...] DM, EtOH, esophagitis, who presented to [facility] 3 days ago after being found unresponsive at home. Patient found to have likely pneumonia +/- aspiration, newly reduced EF. Patient not on any sedation, not waking up. MEDICATIONS: -Depakote 500 mg x1 dose -Fentanyl gtt stopped 08/17 -Propofol gtt stopped 08/17 PRIOR EEG(s): -N/A METHODS: A 21 channel digitized electroencephalogram was performed in the [facility] Clinical Neurophysiology Laboratory. The 10/20 international system of electrode placement was used and bipolar and referential electrode montages were recorded. In addition to EEG the patient was monitored for EKGand lateral/vertical eye movements. Video was recorded during the session. RESEARCH GREENHOUSE SUPERVISOR'S REPORT: Performed by: Glendy MARCUS Patient was [...] be seen in toxo-metabolic and infectious etiologies. Cedirc Gilbert MD 08/18/2022 Attending Attestation I reviewed the EEG with the resident/fellow, made appropriate changes to the EEG report as needed, and I agree with the final interpretation as written. Tyree Martin MD [facility] Epilepsy [facility] Department of Neurology * [...] follow. Cedric Gilbert MD Epilepsy Fellow P. [phone] * Jesenia Mejía MD - 08/15/2022 12:47 AM EDT Pulmonary Arterial Line Placement Procedure Note Indications: Catheter placed for diagnosis and treatment of instability. This insertion was not to replace a malfunctioning catheter. This insertion was not due to a suspected line-associated infection. Location of Procedure: [facility] Risks and Benefits: The risks and benefits [...] to the planned procedure. Hand Hygiene: The hand inserter operator did perform hand hygiene prior to line insertion. Procedure Details: Insertion Site:internal jugular side:right Confirmation of Venous Placement: Venous placement was confirmed by transducing the pressure. Introducer Insertion Attempts: 1 Comments: See separate note Floating the [place] Catheter Attempts: 1 Sterile Dressing: CHG Impregnated [...] patient positioning and presence of the site aleln was confirmed as applicable. The medical history and chart were reviewed to rule out potential contraindications to the planned procedure. Hand Hygiene: The hand inserter operator did perform hand hygiene prior to arterial [...] anticipated to discharge home with family with [facility] and 24/7 care 09/25/22. Medical team has cleared Ishna to return home with [facility]. Patient will discharge with [facility] with a SOC 09/26/22. [facility] has done education on administration of tube feeds and has stated they did well. Delivery of formulas was done 09/24/22 at 1700. Needs for Transition of Care: Plan for discharge is: Home w/ Services Outpatient Agency/Support Group Needs: None Home Health Services: Occupational Therapy, Physical Therapy, Medication checks, Registered Nurse, Home Health Aide, Neurosurgery Research Director Agency Referrals & Follow-up Care: Contact information for follow-up Infusion Therapy, [address] [address] [facility], [place] [address] [place] [address] Transportation: ambulance family or friend will provide [...] in agreement with plan. Ashlee Miramontes RN [phone] Pager [phone] * Plan of Care - Leann Harding [...] plan for patient to discharge 09/26/22 with [facility] and30/11 care. Plan for [facility] to do [...] and family prefer to discharge home with [facility] and30/11 care. Medical team is aware of patient and family preference. [facility] Transportation: ambulance vs family Barriers to discharge: Discharge planning Supports: Caregiver support Financial: [facility] Medicaid *Submitted 09/14 Plan going forward: Care Management will continue to follow and assist with discharge planning and coordination of care as indicated. Anticipated Date of Discharge: 09/25/2022 Ashlee Miramontes RN [phone] Pager [phone] * Plan of Care - Leann Harding [...] to Ishan regarding discharge planning. RUPAL and clothes designer attempted to give education on importance of utilizing rehab to ensure a safe discharge home. Patient is adamantly refusing rehab at this time. Medical team is aware of family wishes. Ashlee Miramontes RN, CM [phone] Pager [phone] ADDENDUM 134: Message received from Antonio anaya, expressing extreme frustration regarding needfor rehab before returning home. Family preference is for Ishan to return home with [facility] despite therapy recommendations for rehab. Antonio requesting a return call from RUPAL and . has been notified. [facility] left a message with and is currently awaiting a return call. Referrals submitted per Antonio anaya's request. The Brake Press Operator, Antonio anaya has been provided a list of Home Health Agencies/DME vendors which serve their preferred geographic area. A letter describing our affiliations was reviewed with them and they were educated about their right to choose where referrals are placed. CM Provided patient with [facility] Star Quality Rating for Home care hand out. Patient requests referral to : [facility]. [address] [place] [id number] Expected date of discharge: 09/25/22. Referral routed to the Bowling Ball Marker for matching with agency/vendor and to provide any required information. New Tube Feeds: [address] , [place] [address] Toll Free: Nursing Pharmacy Ashlee Miramontes RN [phone] Pager [phone] * Plan of Care - Radha Lockett [...] Referral Placed: 09/10/2022 Last Physical Therapy Recommendation: half-way facility with to be determined Last Occupational Therapy Recommendation: acute rehabilitation facility with to be determined Plan for discharge is: Senior Living Facility / Swing Outpatient Agency/Support Group Needs: None Agency Referrals: [place] - pending decision [facility] - [...] Date of Discharge: 09/21/2022 Ashlee Miramontes RN [phone] Pager [phone] * Plan of Care - Ama Mckoy [...] HOB higher than 30 degrees) Use a [employer] chair cushion beneath patient at all times [...] Please contact KHADRA LOU RN on pager [phone] or the wound care team at [phone] or pager [phone] with skin and wound care concerns or [...] Referral Placed: 09/10/2022 Last Physical Therapy Recommendation: half-way facility with to be determined Last Occupational Therapy Recommendation: acute rehabilitation facility with to be determined Plan for discharge is: Senior Living Facility / Swing Outpatient Agency/Support Group Needs: None Agency Referrals: [place] - pending decision [facility] - declined, no payer source. Ongoing discussion regarding possible contract. [facility] [place] - pending response Transportation: ambulance Barriers to discharge: Discharge planning Supports: Caregiver support Financial: [facility] Medicaid *Submitted 09/14 Plan going forward: G-tube successfully placed 09/11, patient tolerating tube feeds at this time. Remains NPO. She is s/p ORIF for left femur fracture, currently requiring 2 assist FWW/gait belt for mobility. [place] [facility] Medicaid application has been submitted 09/14. Care Management will continue to follow and assist with discharge planning and coordination of care as indicated. Anticipated Date of Discharge: 09/18/2022 Marybeth Shelley RN, BSN Cistern Room Working Supervisor - Medicine Office of Care Management Office: Pager: [phone] * Plan of Care - Ama Mckoy [...] vs home w services Pending insurance for buttermaker helper medicaid Gastric retention band removal INDIVIDUALIZED FALL [...] vs home w/services Insurance pending for medicaid group home care. INDIVIDUALIZED FALL PREVENTION INTERVENTIONS: Patient-specific fall [...] at this time. D5LR in place, infusing [id number]. Plan for IR to place G- tube around 1500. Speech and Podiatrist Assistant to floor, deferred assessment at that time [...] REQUESTING PROVIDER: Molina Flores MD NAME: Ishan Liuson : 1960 HPI: [...] There is delayed elevation of the larynx fdc between the vallecula and piriform sinuses. It [...] by David Dejesus MD at [facility] ENDOSCOPY ??? PRO COLONOSCOPY, DIAGNOSTIC N/A 03/01/2020 COLONOSCOPY, DIAGNOSTIC performed by David Dejesus MD at [facility] ENDOSCOPY ??? PRO ENDOSCOPIC US EXAM, ESOPH N/A 03/31/2022 UPPER EUS- ENDOSCOPIC ULTRASOUND performed by David Dejesus MD at [facility] ENDOSCOPY ??? PRO UPPER GI ENDOSCOPY, BIOPSY N/A 04/03/2014 UPPER GASTROINTESTINAL ENDOSCOPY,WITH BIOPSY SINGLE OR MULTIPLE performed by David Dejesus MDat [facility] ENDOSCOPY ??? PRO UPPER GI ENDOSCOPY, BIOPSY N/A 03/20/2016 EGD WITH BIOPSY performed by David Dejesus MD at [facility] ENDOSCOPY ??? PRO UPPER GI ENDOSCOPY, BIOPSY N/A 11/22/2018 EGD WITH BIOPSY (WRVU 2.49) performed by David Dejesus MD at [facility] ENDOSCOPY ??? PRO UPPER GI ENDOSCOPY, BIOPSY N/A 03/01/2020 UPPER GASTROINTESTINAL ENDOSCOPY,WITH BIOPSY SINGLE OR MULTIPLE (WRVU 2.49) performed by David Dejesus MD at [facility] ENDOSCOPY ??? PRO UPPER GI ENDOSCOPY, BIOPSY N/A 09/23/2021 EGD WITH BIOPSY (WRVU 2.49) performed by David Dejesus MD at [facility] ENDOSCOPY ??? PRO UPPER GI ENDOSCOPY, BIOPSY N/A 03/31/2022 EGD WITH BIOPSY (WRVU 2.49) performed by David Dejesus MD at [facility] ENDOSCOPY ??? PRO UPPER GI ENDOSCOPY, BIOPSY N/A 07/03/2022 EGD WITH BIOPSY (WRVU 2.49) performed by David Dejesus MD at [facility] ENDOSCOPY ??? PRO UPPER GI ENDOSCOPY, DIAGNOSTIC N/A 04/03/2014 EGD, UPPER GI ENDOSCOPY performed by David Dejesus MD at [facility] ENDOSCOPY ??? PRO UPPER GI ENDOSCOPY, DIAGNOSTIC N/A 03/01/2020 EGD, UPPER GI ENDOSCOPY performed by David Dejesus MD at [facility] ENDOSCOPY SOCIAL HX: Social History [...] 31 x 3/16 Needle 1 Device by [facility] [...] dextrose 5% lactated ringers 100 mL/hr (09/10/22 024) ??? tube feeding diet Stopped (09/08/222025) PRN: [...] SpO2 SpO2: [90 %-100 %] IO 09/09 700 - 09/10 699 In: 3877 [I.V.:3547] Out: 2049 [Urine:2049] Wt [...] who have questions please contact the health patient care technician instructor that requested your imaging first. Chest One View Final Result 1. Reposition enteric tube now extending below the diaphragm and included ecaab-sr-hwnk. 2. Similar appearance of elevated right hemidiaphragm and linear/patchy bibasilar opacities which may represent atelectasis or possibly aspiration. Thank you for letting us participate in the care of this patient. If you are a health care provider and have any questions regarding this report, please contact the number below. For patients who have questions please contact the health patient care technician instructor that requested your imaging first. Abdomen 1 [...] who have questions please contact the health patient care technician instructor that requested your imaging first. Chest One [...] who have questions please contact the health patient care technician instructor that requested your imaging first. Fluoro Barium [...] who have questions please contact the health patient care technician instructor that requested your imaging first. Fluoro Barium [...] who have questions please contact the health patient care technician instructor that requested your imaging first. Angiogram Coronary [...] who have questions please contact the health patient care technician instructor that requested your imaging first. Chest wo Contrast (Generic) Final Result Stable findings of multifocal pneumonia. No interval abnormality. Thank you for letting us participate in the care of this patient. If you are a health care provider and have any questions regarding this report, please contact the number below. For patients who have questions please contact the health patient care technician instructor that requested your imaging first. Hip 2-3 Views Left Final Result No radiographic evidence of infection. Thank you for letting us participate in the care of this patient. If you are a health care provider and have any questions regarding this report, please contact the number below. For patients who have questions please contact the health patient care technician instructor that requested your imaging first. Electronically signed by: Viktor Cervantes MD, [facility] ([phone]), at 08/22/2022 12:43 PM XR Pelvis (Generic) Final Result No radiographic evidence of infection status post left hip ORIF. Thank you for letting us participate in the care of this patient. If you are a health care provider and have any questions regarding this report, please contact the number below. For patients who have questions please contact the health patient care technician instructor that requested your imaging first. Electronically signed by: Richard Billings MD, [facility] ([phone]), at 08/22/2022 10:[address] Hip w [...] who have questions please contact the health patient care technician instructor that requested your imaging first. Electronically signed by: Aicha Chowdhury MD, [facility] ([phone]), at 08/21/2022 9:[address] Chest w [...] who have questions please contact the health patient care technician instructor that requested your imaging first. Brain wo Contrast Final Result No acute infarction, mass or mass effect. Thank you for letting us participate in the care of this patient. If you are a health care provider and have any questions regarding this report, please contact the number below. For patients who have questions please contact the health patient care technician instructor that requested your imaging first. Chest for [...] who have questions please contact the health patient care technician instructor that requested your imaging first. Chest One [...] who have questions please contact the health patient care technician instructor that requested your imaging first. Head wo Contrast (Generic) Final Result No acute intracranial process. Thank you for letting us participate in the care of this patient. If you are a health care provider and have any questions regarding this report, please contact the number below. For patients who have questions please contact the health patient care technician instructor that requested your imaging first. Abdomen 1 [...] who have questions please contact the health patient care technician instructor that requested your imaging first. Head wo Contrast (Generic) Final Result No acute intracranial abnormality and no change from prior Thank you for letting us participate in the care of this patient. If you are a health care provider and have any questions regarding this report, please contact the number below. For patients who have questions please contact the health patient care technician instructor that requested your imaging first. Electronically signed by: Moustapha Correa MD, [facility] ([phone]), at 08/16/2022 11:19 PM XR Chest One [...] who have questions please contact the health patient care technician instructor that requested your imaging first. Abdomen 1 [...] who have questions please contact the health patient care technician instructor that requested your imaging first. Abdomen 1 [...] who have questions please contact the health patient care technician instructor that requested your imaging first. Chest One [...] who have questions please contact the health patient care technician instructor that requested your imaging first. Chest One [...] who have questions please contact the health patient care technician instructor that requested your imaging first. Film Library- [...] re-engaged. Discussed and seen with her outpatient chain hoist operator, Dr. Dejesus. Agree with placement of [...] Russ MD - 09/10/2022 12:40 AM EDT [facility] Operative Note Name: Ishan Irving : 1960 Date of surgery: 09/10/2022 Surgeon: Audi Russ MD medical office receptionist assistant: Ede De Dios MD Preoperative dx: Need for buttermaker helper enteral feeding access due to inability to take PO Postoperative dx: Esophageal stricture Procedure: Esophagoscopy Indication: This is an 62 y.o. year old female with a PMHx of L femoral neck fracture,??bipolar disorder with catatonic episodes, resolving medication- induced Parkinsonism, IDDM,??h/o alcoholism and chronic pancreatitis, iron deficiency anemia,??and GERD??c/b??esophagitis &??Farrell's esophagus. She was admitted to [facility] on 08/14/2022 with mixed shock and [...] participate in the care of your patient. uAdi Russ MD 09/10/2022 12:40 AM Attestation: Case [...] be determined Plan for discharge is: Senior Living Facility / Swing Outpatient Agency/Support Group Needs: [...] of Discharge: 09/10/2022 Marybeth Shelley RN, BSN Cistern Room Working Supervisor - Medicine Office of Care Management Office: Pager: [phone] * Plan of Care - Mac Mcmillan [...] when visiting. Patient does have transfer orders, weigher and charger notified of patient's and her husbands request to transfer to a floor. Tube feeds continued through DHT, patient reports feeling of fullness, then later had multiple episiodes of nausea and vomiting. PRN zofran given, and orders received for PRN compazine as well; voting machine repairer aware and tube feeding orders adjusted. External [...] Assumed care of pt @ 0100 from [facility]. A&Ox4, VSS on 2 L NC. TF restarted per orders in DHT, turned off per MD verbal order at 0600. Intermittent cough nonproductive, no S/S of aspiration. Externalcath in place, incontinence care provided PRN. Left hip incision TOOL TROUBLE SHOOTER, CDI, steri strips intact. C/oleft hip pain, [...] RD??c/b??esophagitis &??Farrell's esophagus, who was admitted to [facility] on 08/14/2022 (now on Hospital Day [...] by David Dejesus MD at [facility] ENDOSCOPY ??? PRO COLONOSCOPY, DIAGNOSTIC N/A 03/01/2020 COLONOSCOPY, DIAGNOSTIC performed by David Dejesus MD at [facility] ENDOSCOPY ??? PRO ENDOSCOPIC US EXAM, ESOPH N/A 03/31/2022 UPPER EUS- ENDOSCOPIC ULTRASOUND performed by David Dejesus MD at [facility] ENDOSCOPY ??? PRO UPPER GI ENDOSCOPY, BIOPSY N/A 04/03/2014 UPPER GASTROINTESTINAL ENDOSCOPY,WITH BIOPSY SINGLE OR MULTIPLE performed by David Dejesus MDat [facility] ENDOSCOPY ??? PRO UPPER GI ENDOSCOPY, BIOPSY N/A 03/20/2016 EGD WITH BIOPSY performed by David Dejesus MD at [facility] ENDOSCOPY ??? PRO UPPER GI ENDOSCOPY, BIOPSY N/A 11/22/2018 EGD WITH BIOPSY (WRVU 2.49) performed by David Dejesus MD at [facility] ENDOSCOPY ??? PRO UPPER GI ENDOSCOPY, BIOPSY N/A 03/01/2020 UPPER GASTROINTESTINAL ENDOSCOPY,WITH BIOPSY SINGLE OR MULTIPLE (WRVU 2.49) performed by David Dejesus MD at [facility] ENDOSCOPY ??? PRO UPPER GI ENDOSCOPY, BIOPSY N/A 09/23/2021 EGD WITH BIOPSY (WRVU 2.49) performed by David Dejesus MD at [facility] ENDOSCOPY ??? PRO UPPER GI ENDOSCOPY, BIOPSY N/A 03/31/2022 EGD WITH BIOPSY (WRVU 2.49) performed by David Dejesus MD at [facility] ENDOSCOPY ??? PRO UPPER GI ENDOSCOPY, BIOPSY N/A 07/03/2022 EGD WITH BIOPSY (WRVU 2.49) performed by David Dejesus MD at [facility] ENDOSCOPY ??? PRO UPPER GI ENDOSCOPY, DIAGNOSTIC N/A 04/03/2014 EGD, UPPER GI ENDOSCOPY performed by David Dejesus MD at [facility] ENDOSCOPY ??? PRO UPPER GI ENDOSCOPY, DIAGNOSTIC N/A 03/01/2020 EGD, UPPER GI ENDOSCOPY performed by David Dejesus MD at [facility] END[facility] Medications: Current Facility-Administered Medications: [...] 1-4 Units, Subcutaneous, Q4H LAZARUS, Elsie Erickson CARDBOARD INSERTER ??? [START ON 09/05/2022] insulin glargine-ygfn (Semglee) [...] Nightly, Irwin Jones MD, 100 mg at 04/27/23 2136 ??? lidocaine (Lidoderm) 5% patch 3 patch, 3 patch, Transdermal, Q24H, Neav Tomlin MD, 3 patch at 08/29/22 1102 [...] mg, Per NG tube, Every Other Day, Reyanldo Avila MD, 300 mg at 09/04/22 0812 [...] 31 x 3/16 Needle 1 Device by [facility] [...] saw and discussed the recent MBS and APPAREL SALES ASSOCIATE concerns. Based on Ishan's history, we know [...] MD aware. Up to commode with OT, APPAREL SALES ASSOCIATE consulted. NGT maintained per protocol. Q2 turns [...] Last Occupational Therapy Recommendation: acute rehabilitation facility, half-way facility with to be determined Plan for discharge is: Senior Living Facility / Swing Outpatient Agency/Support Group Needs: None Agency Referrals: Based on discussions with the multi-disciplinary healthcare team, the patient would benefit from SNF level of care at discharge. I have met with the payroll representative to: ?? discuss discharge planning needs. ?? provide the [facility], Office of Care Management letter from the Wafer Machine Operator pertaining to rehabreferrals. ?? provide a letter describing our affiliations within the [facility] and educate about their right to choose where referrals are sent. ?? provide the CMS Star Quality Rating handout. ?? review the different levels of rehab including SNF, swing, and acute. ?? provide a list of facilities within their preferred geographic area. ?? request that they provide at least three choices for referral. They have requested referrals to: [facility] [address] [place] [address] [facility] ([facility]) [address] [place] [address] [facility] [address] [place] [address] Does patient have COVID vaccine card: Yes; Copy obtained: No Note routed to a Bowling Ball Marker who will communicate referrals to facilities and [...] of Discharge: 09/07/2022 Marybeth Shelley RN, BSN Cistern Room Working Supervisor - Medicine Office of Care Management Office: Pager: [phone] * Consult Note - Aicha Mckeon MD [...] this assessment. Recommendations were communicated to primary sales team member. Aicha Mckeon MD 09/03/2022 Coding [...] Minimal/Low [] Low [] Minimal/Low [] Low 57526 [] Moderate [x] Moderate [] Moderate [] Moderate 82881 [x] High [] High [x] High [x] High 41249 Final Coding Determination: High Associated attestation - Keenan Rey MD - 09/18/2022 1:06 PM EDT Psychiatry Attending Note I discussed this patient's situation with the resident but did not see the patient. I contributed to the formulation and treatment planning as documented in the resident's note. Keenan Rey MD Psychiatry Consultation Pager: [phone] * Consult Note - Ghulam Torres MD - 09/03/2022 10:18 AM EDT Serious Illness Conversation Date of Conversation: 09/03/2022 Discussion with: Patient + Agent/Surrogate ?? Understanding of illness: Accurate understanding of prognosis or disease trajectory I met with Ishan and her Antonio at bedside. They've been 25 years. Met on [employer] online 25 years ago. He went onto a chat group, made a lot of jokes and Ishan private messaged him. It's been love ever since. Ishan moved out here to [place] to be with Antonio from [place]. They have 2boys together (Estiven 23 in [place] - First Line Production Supervisor; and Richard 19 studying at [employer] in politics economics). They are so [...] Strengths: Family Sara or spirituality As above. [place] family. 2 sons Richard and Estiven. Self describe recovering Catholics with a smile. Will engage Manager Trading for prayers of healing and support alongside [...] Rehab rojelio # Healing arts engaged # Manager Trading referral made # Pet Therapy if they are around # Depression seems controlled and managed per psychiatry # Please reach out if any concerns or worries come up! No advance directives on file; but no red flags at this point warranting rapid completion of such. Ghulma Torres MD Palliative 60 minutes were spent over the course of the day on this patient encounter including time spent in chart review, assessment of and counseling with the patient, counseling with the patient's patient care assistant(s), coordination with the consulting service, coordination with [...] bedside. They've been 25 years. Met on [employer] online 25 years ago. He went onto a chat group, made a lot of jokes and Ishan private messaged him. It's been love ever since. Ishan moved out here to [place] to be with Antonio from [place]. They have 2boys together (Estiven 23 in [employer] - First Line Production Supervisor; and Richard 19 studying at [employer] in politics economics). They are so [...] Strengths: Family Sara or spirituality As above. [place] family. 2 sons Richard and Estiven. Self describe recovering Catholics with a smile. Will engage Manager Trading for prayers of healing and support alongside [...] Rehab rojelio # Healing arts engaged # Manager Trading referral made # Pet Therapy if they [...] soft and slowed. ?? Language: fluent in tuvaluan and without paraphasic errors ?? Mood: I [...] this assessment. Recommendations were communicated to primary sales team member. Aicha Mckeon MD 09/02/2022 Coding [...] Minimal/Low [] Low [] Minimal/Low [] Low 10891 [] Moderate [x] Moderate [] Moderate [] Moderate 46117 [x] High [] High [x] High [x] High 58546 Final Coding Determination: High Associated attestation - Keenan Rey MD - 09/18/2022 1:05 PM EDT Psychiatry Attending Note I discussed this patient's situation with the resident but did not see the patient. I contributed to the formulation and treatment planning as documented in the resident's note. Keenan Rey MD Psychiatry Consultation Pager: [phone] * Consult Note - Dipak Chiang RN [...] tube feeding Intake (%): 0% Current bed: [facility] Assessment:Patient appears with fungal rash at [...] HOB higher than 30 degrees) Use a [employer] chair cushion beneath patient at all times [...] Dipak Chiang RN on secure chat, pager [phone] or the wound care team at [phone] or pager [phone] with skin and wound care concerns or [...] (2-assist currently) andis not yet cleared by APPAREL SALES ASSOCIATE for diet. Of note, neurology was involved [...] 20 years ago when she lived in [place]. Problem List: Patient Active Problem List Diagnosis [...] by David Dejesus MD at [facility] ??? PRO COLONOSCOPY, DIAGNOSTIC N/A 03/01/2020 COLONOSCOPY, DIAGNOSTIC performed by David Dejesus MD at [facility] ??? PRO ENDOSCOPIC US EXAM, ESOPH N/A 03/31/2022 UPPER EUS- ENDOSCOPIC ULTRASOUND performed by David Dejesus MD at [facility] ??? PRO UPPER GI ENDOSCOPY, BIOPSY N/A 04/03/2014 UPPER GASTROINTESTINAL ENDOSCOPY,WITH BIOPSY SINGLE OR MULTIPLE performed by David Dejesus MDat [facility] ??? PRO UPPER GI ENDOSCOPY, BIOPSY N/A 03/20/2016 EGD WITH BIOPSY performed by David Dejesus MD at [facility] ??? PRO UPPER GI ENDOSCOPY, BIOPSY N/A 11/22/2018 EGD WITH BIOPSY (WRVU 2.49) performed by David Dejesus MD at [facility] ??? PRO UPPER GI ENDOSCOPY, BIOPSY N/A 03/01/2020 UPPER GASTROINTESTINAL ENDOSCOPY,WITH BIOPSY SINGLE OR MULTIPLE (WRVU 2.49) performed by David Dejesus MD at [facility] ??? PRO UPPER GI ENDOSCOPY, BIOPSY N/A 09/23/2021 EGD WITH BIOPSY (WRVU 2.49) performed by David Dejesus MD at [facility] ??? PRO UPPER GI ENDOSCOPY, BIOPSY N/A 03/31/2022 EGD WITH BIOPSY (WRVU 2.49) performed by David Dejesus MD at [facility] ??? PRO UPPER GI ENDOSCOPY, BIOPSY N/A 07/03/2022 EGD WITH BIOPSY (WRVU 2.49) performed by David Dejesus MD at [facility] ??? PRO UPPER GI ENDOSCOPY, DIAGNOSTIC N/A 04/03/2014 EGD, UPPER GI ENDOSCOPY performed by David Dejesus MD at [facility] ??? PRO UPPER GI ENDOSCOPY, DIAGNOSTIC N/A 03/01/2020 EGD, UPPER GI ENDOSCOPY performed by David Dejesus MD at [facility] Inpatient Medications: Current Facility-Administered [...] Units 1-5 Units Subcutaneous Q4H Elsie Dang, CARDBOARD INSERTER 1 Units at 09/01/22 1134 ??? polyethylene [...] tablet 1,000 mg 1,000 mg Oral Q8H [facility] Tyler Cobb MD 1,000 mg [...] ; has two adult sons (one at [employer], one lives with friends somewhere relatively [...] rhythm and soft ?? Language: fluent in tuvaluan ?? Mood: depressed Affect: constricted and mood-congruent ?? Thought Process: linear and logical ?? Associations: intact ?? Thought Content: no homicidal ideation no suicidal ideation ; no PI/delusions Perception: denied auditory hallucinations denied visual hallucinations not observed responding to internal stimuli ?? Orientation: oriented to self; oriented to month/day/year; oriented to [facility] and being in ahospital but [...] this assessment. Recommendations were communicated to primary sales team member Irwin Jones. KEENAN REY MD [...] [] Minimal - [] Minimal [] Straightforward 59851 [] Low [] Low [] Low [] Low 50663 [] Moderate [x] Moderate [] Moderate [] Moderate 42836 [x] High [] High [x] High [x] High 40089 Final Coding Determination: High: 39318 * Consult Note - Nery Ott MD [...] NRB. She was initially brought to [facility]. 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 This was ultimately felt to be Tak[place] cardiomyopathy and she was medically managed. She was transferred to the medical service yesterday for further evaluation as she is having dysphagia and regurgitation. Per report, she has a dobhoff in place. She was seen by APPAREL SALES ASSOCIATE today who note inconsistent symptoms/signs of aspiration [...] by David Dejesus MD at [facility] ??? PRO COLONOSCOPY, DIAGNOSTIC N/A 03/01/2020 COLONOSCOPY, DIAGNOSTIC performed by David Dejesus MD at [facility] ??? PRO ENDOSCOPIC US EXAM, ESOPH N/A 03/31/2022 UPPER EUS- ENDOSCOPIC ULTRASOUND performed by David Dejesus MD at [facility] ??? PRO UPPER GI ENDOSCOPY, BIOPSY N/A 04/03/2014 UPPER GASTROINTESTINAL ENDOSCOPY,WITH BIOPSY SINGLE OR MULTIPLE performed by David Dejesus MDat [facility] ??? PRO UPPER GI ENDOSCOPY, BIOPSY N/A 03/20/2016 EGD WITH BIOPSY performed by David Dejesus MD at [facility] ??? PRO UPPER GI ENDOSCOPY, BIOPSY N/A 11/22/2018 EGD WITH BIOPSY (WRVU 2.49) performed by David Dejesus MD at [facility] ??? PRO UPPER GI ENDOSCOPY, BIOPSY N/A 03/01/2020 UPPER GASTROINTESTINAL ENDOSCOPY,WITH BIOPSY SINGLE OR MULTIPLE (WRVU 2.49) performed by David Dejesus MD at [facility] ??? PRO UPPER GI ENDOSCOPY, BIOPSY N/A 09/23/2021 EGD WITH BIOPSY (WRVU 2.49) performed by David Dejesus MD at [facility] ??? PRO UPPER GI ENDOSCOPY, BIOPSY N/A 03/31/2022 EGD WITH BIOPSY (WRVU 2.49) performed by David Dejesus MD at [facility] ??? PRO UPPER GI ENDOSCOPY, BIOPSY N/A 07/03/2022 EGD WITH BIOPSY (WRVU 2.49) performed by David Dejesus MD at [facility] ??? PRO UPPER GI ENDOSCOPY, DIAGNOSTIC N/A 04/03/2014 EGD, UPPER GI ENDOSCOPY performed by David Dejesus MD at [facility] ??? PRO UPPER GI ENDOSCOPY, DIAGNOSTIC N/A 03/01/2020 EGD, UPPER GI ENDOSCOPY performed by David Dejesus MD at [facility] SOCIAL HX: Social History [...] 31 x 3/16 Needle 1 Device by [facility] [...] who have questions please contact the health patient care technician instructor that requested your imaging first. Angiogram Coronary [...] who have questions please contact the health patient care technician instructor that requested your imaging first. Chest wo Contrast (Generic) Final Result Stable findings of multifocal pneumonia. No interval abnormality. Thank you for letting us participate in the care of this patient. If you are a health care provider and have any questions regarding this report, please contact the number below. For patients who have questions please contact the health patient care technician instructor that requested your imaging first. Hip 2-3 Views Left Final Result No radiographic evidence of infection. Thank you for letting us participate in the care of this patient. If you are a health care provider and have any questions regarding this report, please contact the number below. For patients who have questions please contact the health patient care technician instructor that requested your imaging first. Electronically signed by: Viktor Cervantes MD, [facility] ([phone]), at 08/22/2022 12:43 PM XR Pelvis (Generic) Final Result No radiographic evidence of infection status post left hip ORIF. Thank you for letting us participate in the care of this patient. If you are a health care provider and have any questions regarding this report, please contact the number below. For patients who have questions please contact the health patient care technician instructor that requested your imaging first. Electronically signed by: Richard Billings MD, [facility] ([phone]), at 08/22/2022 10:[address] Hip w [...] who have questions please contact the health patient care technician instructor that requested your imaging first. Electronically signed by: Aicha Chowdhury MD, [facility] ([phone]), at 08/21/2022 9:[address] Chest w [...] who have questions please contact the health patient care technician instructor that requested your imaging first. Brain wo Contrast Final Result No acute infarction, mass or mass effect. Thank you for letting us participate in the care of this patient. If you are a health care provider and have any questions regarding this report, please contact the number below. For patients who have questions please contact the health patient care technician instructor that requested your imaging first. Chest for [...] who have questions please contact the health patient care technician instructor that requested your imaging first. Chest One [...] who have questions please contact the health patient care technician instructor that requested your imaging first. Head wo Contrast (Generic) Final Result No acute intracranial process. Thank you for letting us participate in the care of this patient. If you are a health care provider and have any questions regarding this report, please contact the number below. For patients who have questions please contact the health patient care technician instructor that requested your imaging first. Abdomen 1 [...] who have questions please contact the health patient care technician instructor that requested your imaging first. Head wo Contrast (Generic) Final Result No acute intracranial abnormality and no change from prior Thank you for letting us participate in the care of this patient. If you are a health care provider and have any questions regarding this report, please contact the number below. For patients who have questions please contact the health patient care technician instructor that requested your imaging first. Electronically signed by: Moustapha Correa MD, [facility] ([phone]), at 08/16/2022 11:19 PM XR Chest One [...] who have questions please contact the health patient care technician instructor that requested your imaging first. Abdomen 1 [...] who have questions please contact the health patient care technician instructor that requested your imaging first. Abdomen 1 [...] who have questions please contact the health patient care technician instructor that requested your imaging first. Chest One [...] who have questions please contact the health patient care technician instructor that requested your imaging first. Chest One [...] who have questions please contact the health patient care technician instructor that requested your imaging first. Film Library- [...] She had a modified barium swallow with APPAREL SALES ASSOCIATE yesterday that showed tamara oropharyngeal aspiration. I [...] of the hospital. Recommendations: -Continue working with APPAREL SALES ASSOCIATE -If no meaningful improvement in oropharyngeal dysphagia [...] them as documented. Cesar Cervantes MD, MS junior business analyst Commercial Or Institutional Cleaner, Gastroenterology and Hepatology * Plan of Care - Vicente Zarco RN - 08/31/2022 6:10 PM EDT OUTCOME EVALUATION NOTE: OUTCOME SUMMARY: Ishan Irving, Roland&Ox 4. VSS. Pt went to her barium [...] to be determined Last Occupational Therapy Recommendation: half-way facility, acute rehabilitation facility with to be [...] Anticipated Date of Discharge: 09/04/2022 Flavio ROLAND wellness instructor- Medicine Office of Care Management Office# [phone] Pager: [phone] * Plan of Care - Vicente Zarco [...] [] 701-900 mg [] 901-1100 mg [] 0189-8308 mg [] 1898-2894 mg [] Above 1500 mg Medications: No [...] 31 x 3/16 Needle 1 Device by [facility] [...] weeks. Will recheck 25, Vit D at [facility] outpatient follow up appointment. C. [...] Osteoporosis Service * Plan of Care - iJgar Harding RN - 08/27/2022 6:08 PM EDT [...] to be determined Last Occupational Therapy Recommendation: half-way facility with to be determined Plan for discharge is: Pending Hospital Course and PT/OT Recommendations Outpatient Agency/Support Group Needs: Other *TBD Agency Referrals: Family has requested [facility] for rehab. Pt still with Dobbhoff [...] 08/31/2022 Office of Care Management Surgery Team Cistern Room Working Supervisor [email or web address] Pager #[phone] * Consult Note - Elise Erickson APRN - 08/24/2022 4:20 PM EDT [...] anemia,??GERD??c/b??esophagitis &??Farrell's esophagus??presenting in transfer from [facility], suspected to be in cardiogenic shock [...] with gestational diabetes in 2002 and then [id number]. Current outpatient diabetes regimen: Diabetes Provider: PCP [...] anemia,??GERD??c/b??esophagitis &??Farrell's esophagus??presenting in transfer from [facility], suspected to be in cardiogenic shock [...] Erickson APRN Endocrinology Diabetes Management Service Pager: [phone] 70 minutes of this 80 minute visit was spent in counseling on diabetes and treatment plan, reviewing all glucose and insulin data as well as relevant laboratory results with the patient and in the coordination of care on the inpatient unit. * Consult Note - Rober Mesnah MD - 08/21/2022 11:32 AM EDT Orthopaedic [...] anemia,??GERD??c/b??esophagitis &??Farrell's esophagus??presented as transfer from [facility] 08/15/22 suspected to be in cardiogenic [...] by David Dejesus MD at [facility] ??? PRO COLONOSCOPY, DIAGNOSTIC N/A 03/01/2020 COLONOSCOPY, DIAGNOSTIC performed by David Dejesus MD at [facility] ??? PRO ENDOSCOPIC US EXAM, ESOPH N/A 03/31/2022 UPPER EUS- ENDOSCOPIC ULTRASOUND performed by David Dejesus MD at [facility] ??? PRO UPPER GI ENDOSCOPY, BIOPSY N/A 04/03/2014 UPPER GASTROINTESTINAL ENDOSCOPY,WITH BIOPSY SINGLE OR MULTIPLE performed by David Dejesus MDat [facility] ??? PRO UPPER GI ENDOSCOPY, BIOPSY N/A 03/20/2016 EGD WITH BIOPSY performed by David Dejesus MD at [facility] ??? PRO UPPER GI ENDOSCOPY, BIOPSY N/A 11/22/2018 EGD WITH BIOPSY (WRVU 2.49) performed by David Dejesus MD at [facility] ??? PRO UPPER GI ENDOSCOPY, BIOPSY N/A 03/01/2020 UPPER GASTROINTESTINAL ENDOSCOPY,WITH BIOPSY SINGLE OR MULTIPLE (WRVU 2.49) performed by David Dejesus MD at [facility] ??? PRO UPPER GI ENDOSCOPY, BIOPSY N/A 09/23/2021 EGD WITH BIOPSY (WRVU 2.49) performed by David Dejesus MD at [facility] ??? PRO UPPER GI ENDOSCOPY, BIOPSY N/A 03/31/2022 EGD WITH BIOPSY (WRVU 2.49) performed by David Dejesus MD at [facility] ??? PRO UPPER GI ENDOSCOPY, BIOPSY N/A 07/03/2022 EGD WITH BIOPSY (WRVU 2.49) performed by David Dejesus MD at [facility] ??? PRO UPPER GI ENDOSCOPY, DIAGNOSTIC N/A 04/03/2014 EGD, UPPER GI ENDOSCOPY performed by David Dejesus MD at [facility] ??? PRO UPPER GI ENDOSCOPY, DIAGNOSTIC N/A 03/01/2020 EGD, UPPER GI ENDOSCOPY performed by David Dejesus MD at [facility] Allergies Allergen Reactions ??? [...] 31 x 3/16 Needle 1 Device by [facility] [...] in M/R/U distributions Motor intact wrist flexion/extension, chalker soles Brisk capillary refill distally Left Upper Extremity Exam: No ecchymosis, erythema, or overlying skin changes No effusion in shoulder / elbow / wrist No obvious TTP clavicle, shoulder, humerus, elbow, forearm, wrist, hand Apparent painless range of motion of shoulder / elbow / wrist / fingers Sensation appears intact to light touch in M/R/U distributions Motor intact wrist flexion/extension, chalker soles Brisk capillary refill distally Right Lower Extremity [...] infection. Orthopaedics will sign off. Please page [phone] when the patient is extubated and examinable [...] GERD/Barrets esophagitis who was transferred from [facility] with cardiogenic shock. Patient fell on [...] started on heparin infusion and transferred to [facility] on 08/15. Vasopressor requirement on admission. [...] follow. Please page ID Red team (pager [phone]) with questions or concerns. Stefan Garsia MD 08/20/2022 3:35 PM Pager: [phone] Infectious Diseases Attending I saw the patient with the infectious diseases fellow. I have made some modifications and agree with the presentation of data and the assessment and plan as outlined above. Parris Leyva MD Professor, Department of Medicine Page [phone] 55 minutes of this 80 minute visit [...] potential sources identified. 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 female with [...] pressor support, and she was transferred to [facility] on 08/14/22. Over the course of [...] Medications Medication Instructions ??? Blood Sugar Diagnostic (Hansoft ULTRA TEST) Strip 1 each, Other, 3 TIMES DAILY, by Other route. 1 box = 100 test strips; 3 boxes = 300 test strips. ??? Blood-Glucose Meter (WalkaboutUCH ULTRA2) Kit by Other route. 1 = one blood glucose meter kit. ??? divalproex EC (DEPAKOTE) 500 mg, Oral, 2 TIMES DAILY ??? HumuLIN N NPH Insulin KwikPen 20 Units, Subcutaneous, DAILY ??? insulin aspart U-100 (NOVOLOG FLEXPEN U-100 INSULIN) 10-20 Units, Subcutaneous, 3 TIMES DAILY BEFORE MEALS, Refer to correction factor scale for dosing. ??? Insulin Williams, Disposable, (BD INSULIN PEN [...] Negative mcL Appearance UA Clear Clear Spec [place] UA 1.018 1.005 - 1.030 Color UA Yellow Yellow Culture Reflexed No Urinalysis Microscopic Exam Result Value Ref Range RBC UA 1 0 - 4 /HPF WBC UA 3 0 - 5 /HPF Bacteria UA Rare (A) None /HPF Yeast Interior UA Occasional (A) None /HPF Yeast Hyph UA Occasional (A) None /HPF Squam Epith UA 1 <=4 /HPF Hyaline Cast UA 2 0 - 2 /LPF Lactate, whole blood, send to lab ([facility]) Result Value Ref Range Lactate WB 1.6 [...] ? Tim Emmanuel MD Department [place] [address] Pager #[phone] Email: [email or web address] [place] * Plan of [facility] - Carlos Arnold R, RN - 08/19/2022 4:50 PM EDT Peripherally Inserted Central Catheter (PICC) Teaching Sheet Peripherally inserted central catheters ([id number]-dg-[id number]) (PICC) are used when you need IV [...] midline catheter? PICC lines are used for group home treatments. PICC lines may be used for [...] can be set up via the nurse Cistern Room Working Supervisor to help you. What are possible complications [...] pressor support, and she was transferred to [facility] on 08/14/22. Over the course of [...] correction factor scale for dosing. ??? Insulin Williams, Disposable, (BD INSULIN PEN [...] mg/dL Lactate, whole blood, send to lab ([facility]) Result Value Ref Range Lactate WB 1.6 [...] hours. Tim Emmanuel MD Department [place] [address] Pager #[phone] Email: [email or web address] * Consult Note - Nichelle Barrett MD [...] correction factor scale for dosing. ??? Insulin Williams, Disposable, (BD INSULIN PEN [...] 6-10 /HPF Hypochromia Moderate Ovalocytes 1-5 /HPF Huron Cells 6-10 /HPF Giant Platelets Less than [...] * Consult Note - Veena King, [facility] - 08/18/2022 9:59 AM EDT ?? The [...] Alternately, during off-hours you niurka lexx call [phone] to contact a pharmacist. * Consult Note - Lorene Michelle [facility] - 08/17/2022 4:53 PM EDT [facility] Pharmacokinetics Note Drug: Vancomycin Pharmacokinetic target: AUC24 (range) 400-600 mg/L.hr Current regimen: 750 mg IV every 24 hours Ishan Irving is a(n) 62 years old female receiving Vancomycin 750 mg IV every 24 hours for pneumonia Recent measured serum creatinine values: 08/17/2022 00:45 1.1 mg/dL 08/16/2022 18:00 1.15 mg/dL 08/16/2022 03:36 1.42 mg/dL Assessment: Analysis of the most recent level(s) using Odersun gives the following patient-specific pharmacokinetic parameters: CL: [...] COVID test: Lab Results Component Value Date [id number] Not Detected 08/15/2022 Past medical History: Past Medical History: Diagnosis Date ??? Bipolar disorder 02/12/2022 Hospitalizations Within the Past 30 Days: no previous admission in last 30 days Current Decision-Making Capacity: Other (spouse is decision maker based on surrogacy; no AD in place) If AD's have not been completed the following surrogate would be surrogate decision maker per [place] surrogate decision making law. (Only good for 180 days) Any patient receiving care in [place] must abide by [place] law. The hierarchy for surrogate decision making [...] (i) The agent with financial power of prosecuting attorney or a conservator appointed in accordance [...] hip recovery) Home Address confirmed as: [address] [facility] [address] Social & Family Supports: All names listed [...] N/A ; Prescription Coverage: Yes Preferred Pharmacy: [facility] [address] [address] Status: Patient is a : No Primary Care Provider confirmed: Chris Stanley APRN [phone] Patient/Caregiver Goals of Treatment: to be determined [...] 1:05 AM EDT Clinical Pharmacist Note - Nyla Ishan Irving [phone] Ishan Irving is a 62 y.o. [...] have. Alternately,during off-hours (9p-7a) you may call [phone] to contact a pharmacist. Tapan Hastings RPH documented in this encounter Plan of Treatment Upcoming Encounters Date Type Department Care Team (Late st Contact Info) Description 05/26/2024 1:10 PM [place] [address] Gavin Carrillo MD [facility] [place] [address] 06/05/2024 1:20 PM EST Office Visit Cardiology at [address] [id number] Milagros Hernandez MD [facility] [place] [address] [place] [address] Pending Results Name Type Priority Associated Diagnoses [...] EDT HC CBC,PLT & AUTO DIFF Routine 05/10/202 3 3:08 AM EDT PHOSPHORUS Routine 09/16/2022 3:08 [...] PLACEMENT Routine 09/11/2022 5 :19 PM EDT POCT GLUCOSE Routine 09/11/2022 11:35 AM EDT [...] :13 AM EDT Upper GI Endoscopy, Diagnostic ([id number]) 09/09/2022 11:35 PM EDT failed MBS with [...] GLUCOSE Routine 08/21/2022 9:[address] [facility] ASPERGILLUS (GALACTOMANNAN) ANTIGEN Routine 08/21/2022 8:30 AM EDT POCT GLUCOSE Routine 08/21/2022 8:[address] [facility] FUNGITELL; (1, 3) [id number] Routine 08/21/2022 8:00 AM EDT POCT GLUCOSE [...] 08/15/2022 11:59 AM EDT RAPID COVID-19 PCR ([facility]) Routine 08/15/2022 11:50 AM EDT POCT GLUCOSE [...] HC CBC,PLT & AUTO DIFF Routine 3 11:55 PM EDT HC PHOSPHORUS, SERUM Routine [...] MD IMG IR ORDERABLES Performing Organization Address City/[facility]/ZIP Co de Phone Number [place], [place] * POCT Glucose (09/25/2022 6:26 AM EDT) Glucose, POC 155 65 - 199 mg/dL [facility] Comment: Supplemental ranges: <140 mg/dL before meals <180 mg/dL all other times of the day Blood 09/25/2022 6:26 AM EDT 09/25/2022 6:26 AM EDT Jose Mcleod MD POINT OF CARE TEST O RDERABLES Performing Organization Address City/[facility] Co de Phone Number [facility] [place] [address] * (ABNORMAL) Basic Metabolic Panel (non-fasting) (09/25/2022 3:11 AM EDT) Glucose 187 65 - 199 mg/dL [facility] Comment:Diabetes: >=200 mg/d L plus symptoms Blood Urea Nitrogen 32(H) 8 - 18 mg/dL [facility] Creatinine 0.62(L) 0.70 - 1.20 mg/dL [facility] Sodium 142 135 - 145 mmol/L [facility] Potassium 4.6 3.5 - 5.0 mmol/L [facility] Comment: Please note: ??Patients with WBC >100,000 may have falsely elevated Potassium levels. ??For accurate Potassium quantification in these patients send serum separator tube (gold top) for subsequent determinations. ??Contact the Clinical Chemistry Laboratory if there are any questions. Chloride 103 98 - 107 mmol/L [facility] Carbon Dioxide 31 22 - 31 mmol/L [facility] Anion Gap 8 5 - 15 mmol/L [facility] Calcium 9.8 8.5 - 10.5 mg/dL [facility] Est Glomerular Filtration Rate 101 >=60 mL/min/1. 73 m?? [facility] Comment: This patient's estimated GFR was [...] CHEMISTRY ORDERABLES Performing Organization Address [facility] Co de Phone Number [facility] [place] [address] * Phosphorus (09/25/2022 3:11 AM EDT) Phosphorus 4.0 2.5 - 4.5 mg/dL [facility] Blood 09/25/2022 3:11 AM EDT 09/25/2022 3:54 AM EDT Narrative Resulting Agency Comment Spec In Lab Richard Pascal MD CHEMISTRY ORDERABLES Performing Organization Address [facility] Co de Phone Number [facility] [place] [address] * Magnesium (09/25/2022 3:11 AM EDT) Magnesium 0.95 0.69 - 1.07 mmol/L [facility] Blood 09/25/2022 3:11 AM EDT 09/25/2022 3:54 AM EDT Narrative Resulting Agency Comment Spec In Lab Richard Pascal MD CHEMISTRY ORDERABLES Performing Organization Address [facility] Co de Phone Number [facility] [place] [address] * (ABNORMAL) POCT Glucose (09/24/2022 8:44 PM EDT) Glucose, POC 218(H) 65 - 199 mg/dL [facility] Comment: Supplemental ranges: <140 mg/dL before meals <180 mg/dL all other times of the day Blood 09/24/2022 8:44 PM EDT 09/24/2022 8:44 PM EDT Jose Mcleod MD POINT OF CARE TEST O RDERAREYMUNDO [facility] [place] [address] * (ABNORMAL) POCT Glucose (09/24/2022 4:03 PM EDT) Glucose, POC 243(H) 65 - 199 mg/dL [facility] Comment: Supplemental ranges: <140 mg/dL before meals <180 mg/dL all other times of the day Blood 09/24/2022 4:03 PM EDT 09/24/2022 4:03 PM EDT Jose Mcleod MD POINT OF CARE TEST O RDERAREYMUNDO Performing Organization Address City/[facility]/ZIP Co de Phone Number [facility] [place] [address] * (ABNORMAL) POCT Glucose (09/24/2022 11:44 AM EDT) Glucose, POC 272(H) 65 - 199 mg/dL [facility] Comment: Supplemental ranges: <140 mg/dL before meals <180 mg/dL all other times of the day Blood 09/24/2022 11:4 4 AM EDT 09/24/2022 11:44 AM EDT Jose Mcleod MD POINT OF CARE TEST O RDERAREYMUNDO [facility] [place] [address] * POCT Glucose (09/24/2022 6:21 AM EDT) Glucose, POC 186 65 - 199 mg/dL [facility] Comment: Supplemental ranges: <140 mg/dL before meals <180 mg/dL all other times of the day Blood 09/24/2022 6:21 AM EDT 09/24/2022 6:21 AM EDT Jose Mcleod MD POINT OF CARE TEST O RDERABLES Performing Organization Address [facility] de Phone Number [facility] [place] [address] * Lavender Tube HOLD (09/24/2022 5:31 AM EDT) Lavender Hold Sample in lab. [facility] Blood Venous Draw / Unknown 09/24/2022 5:31 AM EDT 09/24/2022 5:48 AM EDT Jigar Streeter MD HEMATOLOGY ORDERABLE S Performing Organization Address [facility] de Phone Number [facility] [place] [address] * (ABNORMAL) Basic Metabolic Panel (non-fasting) (09/24/2022 5:31 AM EDT) Glucose 188 65 - 199 mg/dL [facility] Comment:Diabetes: >=200 mg/d L plus symptoms Blood Urea Nitrogen 31(H) 8 - 18 mg/dL [facility] Creatinine 0.69(L) 0.70 - 1.20 mg/dL [facility] Sodium 139 135 - 145 mmol/L [facility] Potassium 4.5 3.5 - 5.0 mmol/L [facility] Comment: Please note: ??Patients with WBC >100,000 may have falsely elevated Potassium levels. ??For accurate Potassium quantification in these patients send serum separator tube (gold top) for subsequent determinations. ??Contact the Clinical Chemistry Laboratory if there are any questions. Chloride 100 98 - 107 mmol/L [facility] Carbon Dioxide 30 22 - 31 mmol/L [facility] Anion Gap 9 5 - 15 mmol/L [facility] Calcium 10.0 8.5 - 10.5 mg/dL [facility] Est Glomerular Filtration Rate 98 >=60 mL/min/1. 73 m?? [facility] Comment: This patient's [...] CHEMISTRY ORDERABLES Performing Organization Address [facility] Co de Phone Number [facility] [place] [address] * (ABNORMAL) Phosphorus (09/24/2022 5:31 AM EDT) Phosphorus 4.6(H) 2.5 - 4.5 mg/dL [facility] Blood 09/24/2022 5:31 AM EDT 09/24/2022 5:48 AM EDT Narrative Resulting Agency Comment Spec In Lab Richard Pascal MD CHEMISTRY ORDERABLES Performing Organization Address City/[facility] Co de Phone Number [facility] [place] [address] * Magnesium (09/24/2022 5:31 AM EDT) Magnesium 0.95 0.69 - 1.07 mmol/L [facility] Blood 09/24/2022 5:31 AM EDT 09/24/2022 5:48 AM EDT Narrative Resulting Agency Comment Spec In Lab Richard Pascal MD CHEMISTRY ORDERABLES Performing Organization Address City/[facility] Co de Phone Number [facility] [place] [address] * (ABNORMAL) POCT Glucose (09/23/2022 7:58 PM EDT) Glucose, POC 226(H) 65 - 199 mg/dL [facility] Comment: Supplemental ranges: <140 mg/dL before meals <180 mg/dL all other times of the day Blood 09/23/2022 7:58 PM EDT 09/23/2022 7:58 PM EDT Jose Mcleod MD POINT OF CARE TEST O RDERABLES [facility] [place] [address] * POCT Glucose (09/23/2022 4:40 PM EDT) Glucose, POC 94 65 - 199 mg/dL [facility] Comment: Supplemental ranges: <140 mg/dL before meals <180 mg/dL all other times of the day Blood 09/23/2022 4:40 PM EDT 09/23/2022 4:40 PM EDT Jose Mcleod MD POINT OF CARE TEST O RDERABLES Performing Organization Address City/[facility]/ZIP Co de Phone Number [facility] [place] [address] * (ABNORMAL) POCT Glucose (09/23/2022 2:00 PM EDT) Glucose, POC 276(H) 65 - 199 mg/dL [facility] Comment: Supplemental ranges: <140 mg/dL before meals <180 mg/dL all other times of the day Blood 09/23/2022 2:00 PM EDT 09/23/2022 2:00 PM EDT Jose Mcleod MD POINT OF CARE TEST O RDERABLES [facility] [place] [address] * (ABNORMAL) POCT Glucose (09/23/2022 1:14 PM EDT) Glucose, POC 324(H) 65 - 199 mg/dL [facility] Comment: Supplemental ranges: <140 mg/dL before meals <180 mg/dL all other times of the day Blood 09/23/2022 1:14 PM EDT 09/23/2022 1:14 PM EDT Jose Mcleod MD POINT OF CARE TEST O RDERABLES [facility] [place] [address] * (ABNORMAL) POCT Glucose (09/23/2022 11:37 AM EDT) Glucose, POC 291(H) 65 - 199 mg/dL [facility] Comment: Supplemental ranges: <140 mg/dL before meals <180 mg/dL all other times of the day Blood 09/23/2022 11:3 7 AM EDT 09/23/2022 11:37 AM EDT Jose Mcleod MD POINT OF CARE TEST O RDERABLES Performing Organization Address City/[facility] Co de Phone Number [facility] [place] [address] * POCT Glucose (09/23/2022 6:24 AM EDT) Glucose, POC 191 65 - 199 mg/dL [facility] Comment: Supplemental ranges: <140 mg/dL before meals <180 mg/dL all other times of the day Blood 09/23/2022 6:24 AM EDT 09/23/2022 6:24 AM EDT Jose Mcleod MD POINT OF CARE TEST O RDERABLES Performing Organization Address City/[facility] Co de Phone Number [facility] [place] [address] * Scan, Peripheral Blood (09/23/2022 5:02 AM EDT) Plat estimate Normal [facility] RBC Morphology Abnormal [facility] Microcyte 6-10 /HPF [facility] Hypochromia Moderate [facility] Ovalocytes 1-5 /HPF [facility] Target Cells 1-5 /HPF [facility] Blood 09/23/2022 5:02 AM EDT 09/23/2022 5:23 AM EDT Narrative Resulting Agency Comment Spec In Lab Alan Hunt MD HEMATOLOGY ORDERABLE S [facility] [place] [address] * (ABNORMAL) Differential, Automated (09/23/2022 5:02 AM EDT) Neutrophil % 51.8 % [facility] Neutrophil Absolute 3.50 1.70 - 6.10 x10(3)/mc L [facility] Lymph % 32.8 % [facility] Lymphocytes Abs 2.2 0.9 - 3.2 x10(3)/mc L [facility] Monocyte % 10.3 % [facility] Monocyte Abs 0.7 0.3 - 0.9 x10(3)/mc L [facility] Eos % 2.8 % [facility] Eosinophils Abs 0.2 0.0 - 0.4 x10(3)/mc L [facility] Basophil % 1.6 % [facility] Baso Absolute 0.1 0.0 - 0.1 x10(3)/mc L [facility] Immature Gran % 0.70 % [facility] Comment: Immature granulocytes(IG's)percentage and absolute count will include metamyelocytes, myelocytes, and promyelocytes. Blood smears from CBCs yielding IG's will be scanned manually for concordance. If this scan disagrees with the automated IG or if promyelocytes are noted, a manual differential will be performed. Immature Gran Absolute 0.05(H) 0.00 - 0.04 x10(3)/mc L [facility] Blood 09/23/2022 5:02 AM EDT 09/23/2022 5:23 AM EDT Narrative Resulting Agency Comment Spec In Lab Alan Hunt MD HEMATOLOGY ORDERABLE S [facility] [place] [address] * (ABNORMAL) Hemogram (09/23/2022 5:02 AM EDT) White Blood Cell 6.8 4.0 - 9.5 x10(3)/mc L [facility] Red Blood Cell 4.78 4.00 - 5.21 x10(6)/mc L [facility] Hemoglobin 11.5(L) 11.7 - 15.5 g/dL [facility] Hematocrit 38.4 35.7 - 45.8 % [facility] Mean Cell Volume 80.3(L) 82.6 - 94.4 fL [facility] Mean Cell Hemoglobin 24.1(L) 27.1 - 32.0 pg [facility] Mean Cell Hemoglobin Concentration 29.9(L) 31.7 - 35.0 g/dL [facility] Platelet 222 145 - 357 x10(3)/mc L [facility] RDW Standard Deviation 81.1(H) 37.0 - 46.0 fL [facility] RDW coefficient of variation 28.9(H) 11.5 - 14.1 % [facility] Mean Platelet Volume Not Measured 7.6 - 12.9 fL [facility] NRBC% auto 0.0 % [facility] NRBC Absolute 0.000 0.000 - 0.000 x10(3)/mc L [facility] Blood 09/23/2022 5:02 AM EDT 09/23/2022 5:23 AM EDT Narrative Resulting Agency Comment Spec In Lab Alan Hunt MD HEMATOLOGY ORDERABLE S Performing Organization Address City/[facility]/ZIP Co de Phone Number [facility] [place] [address] * (ABNORMAL) Basic Metabolic Panel (non-fasting) (09/23/2022 5:02 AM EDT) Glucose 203(H) 65 - 199 mg/dL [facility] Comment:Diabetes: >=200 mg/d L plus symptoms Blood Urea Nitrogen 28(H) 8 - 18 mg/dL [facility] Creatinine 0.57(L) 0.70 - 1.20 mg/dL [facility] Sodium 139 135 - 145 mmol/L [facility] Potassium 4.6 3.5 - 5.0 mmol/L [facility] Comment: Please note: ??Patients with WBC >100,000 may have falsely elevated Potassium levels. ??For accurate Potassium quantification in these patients send serum separator tube (gold top) for subsequent determinations. ??Contact the Clinical Chemistry Laboratory if there are any questions. Chloride 101 98 - 107 mmol/L [facility] Carbon Dioxide 30 22 - 31 mmol/L [facility] Anion Gap 8 5 - 15 mmol/L [facility] Calcium 10.0 8.5 - 10.5 mg/dL [facility] Est Glomerular Filtration Rate 103 >=60 mL/min/1. 73 m?? [facility] Comment: This patient's estimated GFR was [...] In Lab Richard Pascal MD CHEMISTRY ORDERABLES [facility] [address] * Phosphorus (09/23/2022 5:02 AM EDT) Phosphorus 4.4 2.5 - 4.5 mg/dL [facility] Blood 09/23/2022 5:02 AM EDT 09/23/2022 5:23 AM EDT Narrative Resulting Agency Comment Spec In Lab Richard Pascal MD CHEMISTRY ORDERABLES Performing Organization Address [facility] Co de Phone Number [facility] [place] [address] * Magnesium (09/23/2022 5:02 AM EDT) Magnesium 0.91 0.69 - 1.07 mmol/L [facility] Blood 09/23/2022 5:02 AM EDT 09/23/2022 5:23 AM EDT Narrative Resulting Agency Comment Spec In Lab Richard Pascal MD CHEMISTRY ORDERABLES Performing Organization Address [facility] Phone Number [facility] [place] [address] * POCT Glucose (09/22/2022 8:23 PM EDT) Glucose, POC 185 65 - 199 mg/dL [facility] Comment: Supplemental ranges: <140 mg/dL before meals <180 mg/dL all other times of the day Blood 09/22/2022 8:23 PM EDT 09/22/2022 8:23 PM EDT Jose Mcleod MD POINT OF CARE TEST O RDERABLES Performing Organization Address [facility] de Phone Number [facility] [place] [address] * (ABNORMAL) POCT Glucose (09/22/2022 4:35 PM EDT) Glucose, POC 220(H) 65 - 199 mg/dL [facility] Comment: Supplemental ranges: <140 mg/dL before meals <180 mg/dL all other times of the day Blood 09/22/2022 4:35 PM EDT 09/22/2022 4:35 PM EDT Jose Mcleod MD POINT OF CARE TEST O RDERABLES Performing Organization Address [facility] Co de Phone Number [facility] [place] [address] * (ABNORMAL) POCT Glucose (09/22/2022 11:24 AM EDT) Glucose, POC 304(H) 65 - 199 mg/dL [facility] Comment: Supplemental ranges: <140 mg/dL before meals <180 mg/dL all other times of the day Blood 09/22/2022 11:2 4 AM EDT 09/22/2022 11:24 AM EDT Jose Mcleod MD POINT OF CARE TEST O RDERABLES [facility] [place] [address] * POCT Glucose (09/22/2022 6:38 AM EDT) Glucose, POC 188 65 - 199 mg/dL [facility] Comment: Supplemental ranges: <140 mg/dL before meals <180 mg/dL all other times of the day Blood 09/22/2022 6:38 AM EDT 09/22/2022 6:38 AM EDT Jose Mcleod MD POINT OF CARE TEST O RDERABLES [facility] [place] [address] * (ABNORMAL) Basic Metabolic Panel (non-fasting) (09/22/2022 5:44 AM EDT) Glucose Not Perf 65 - 199 [facility] Comment: Sample improperly processed prior to receipt. Diabetes: >=200 mg/dL plus symptoms Blood Urea Nitrogen 24(H) 8 - 18 mg/dL [facility] Creatinine 0.56(L) 0.70 - 1.20 mg/dL [facility] Sodium 139 135 - 145 mmol/L [facility] Potassium 4.7 3.5 - 5.0 mmol/L [facility] Comment: Please note: ??Patients with WBC >100,000 may have falsely elevated Potassium levels. ??For accurate Potassium quantification in these patients send serum separator tube (gold top) for subsequent determinations. ??Contact the Clinical Chemistry Laboratory if there are any questions. Chloride 101 98 - 107 mmol/L [facility] Carbon Dioxide 28 22 - 31 mmol/L [facility] Anion Gap 10 5 - 15 mmol/L [facility] Calcium 10.3 8.5 - 10.5 mg/dL [facility] Est Glomerular Filtration Rate 103 >=60 mL/min/1. 73 m?? [facility] Comment: This patient's estimated GFR was [...] In Lab Richard Pascal MD CHEMISTRY ORDERABLES [facility] [place] [address] * Phosphorus (09/22/2022 5:44 AM EDT) Phosphorus 4.0 2.5 - 4.5 mg/dL [facility] Blood 09/22/2022 5:44 AM EDT 09/22/2022 7:46 AM EDT Narrative Resulting Agency Comment Spec In Lab Richard Pascal MD CHEMISTRY ORDERABLES [facility] [place] [address] * Magnesium (09/22/2022 5:44 AM EDT) Magnesium 0.89 0.69 - 1.07 mmol/L [facility] Blood 09/22/2022 5:44 AM EDT 09/22/2022 7:46 AM EDT Narrative Resulting Agency Comment Spec In Lab Richard Pascal MD CHEMISTRY ORDERABLES Performing Organization Address [facility] Co de Phone Number [facility] [place] [address] * POCT Glucose (09/21/2022 8:05 PM EDT) Glucose, POC 168 65 - 199 mg/dL [facility] Comment: Supplemental ranges: <140 mg/dL before meals <180 mg/dL all other times of the day Blood 09/21/2022 8:05 PM EDT 09/21/2022 8:05 PM EDT Jose Mcleod MD POINT OF CARE TEST O RDERABLES Performing Organization Address [facility] Co de Phone Number [facility] [place] [address] * (ABNORMAL) POCT Glucose (09/21/2022 4:28 PM EDT) Glucose, POC 258(H) 65 - 199 mg/dL [facility] Comment: Supplemental ranges: <140 mg/dL before meals <180 mg/dL all other times of the day Blood 09/21/2022 4:28 PM EDT 09/21/2022 4:28 PM EDT Jose Mcleod MD POINT OF CARE TEST O RDERABLES Performing Organization Address [facility] Co de Phone Number [facility] [place] [address] * (ABNORMAL) POCT Glucose (09/21/2022 11:27 AM EDT) Glucose, POC 221(H) 65 - 199 mg/dL [facility] Comment: Supplemental ranges: <140 mg/dL before meals <180 mg/dL all other times of the day Blood 09/21/2022 11:2 7 AM EDT 09/21/2022 11:27 AM EDT Jose Mcleod MD POINT OF CARE TEST O RDERABLES [facility] [place] [address] * (ABNORMAL) POCT Glucose (09/21/2022 7:00 AM EDT) Glucose, POC 211(H) 65 - 199 mg/dL [facility] Comment: Supplemental ranges: <140 mg/dL before meals <180 mg/dL all other times of the day Blood 09/21/2022 7:00 AM EDT 09/21/2022 7:00 AM EDT Olamide Stallings MD POINT OF CARE TEST O RDERABLES Performing Organization Address [facility] Co de Phone Number [facility] [place] [address] * (ABNORMAL) Basic Metabolic Panel (non-fasting) (09/21/2022 5:54 AM EDT) Glucose 203(H) 65 - 199 mg/dL [facility] Comment:Diabetes: >=200 mg/d L plus symptoms Blood Urea Nitrogen 23(H) 8 - 18 mg/dL [facility] Creatinine 0.51(L) 0.70 - 1.20 mg/dL [facility] Sodium 137 135 - 145 mmol/L [facility] Potassium 4.6 3.5 - 5.0 mmol/L [facility] Comment: Please note: ??Patients with WBC >100,000 may have falsely elevated Potassium levels. ??For accurate Potassium quantification in these patients send serum separator tube (gold top) for subsequent determinations. ??Contact the Clinical Chemistry Laboratory if there are any questions. Chloride 101 98 - 107 mmol/L [facility] Carbon Dioxide 27 22 - 31 mmol/L [facility] Anion Gap 9 5 - 15 mmol/L [facility] Calcium 9.8 8.5 - 10.5 mg/dL [facility] Est Glomerular Filtration Rate 105 >=60 mL/min/1. 73 m?? [facility] Comment: This patient's [...] CHEMISTRY ORDERABLES Performing Organization Address [facility] Co de Phone Number [facility] [place] [address] * Phosphorus (09/21/2022 5:54 AM EDT) Phosphorus 4.0 2.5 - 4.5 mg/dL [facility] Blood 09/21/2022 5:54 AM EDT 09/21/2022 6:10 AM EDT Narrative Resulting Agency Comment Spec In Lab Richard Pascal MD CHEMISTRY ORDERABLES Performing Organization Address [facility] Co de Phone Number [facility] [place] [address] * Magnesium (09/21/2022 5:54 AM EDT) Magnesium 0.84 0.69 - 1.07 mmol/L [facility] Blood 09/21/2022 5:54 AM EDT 09/21/2022 6:10 AM EDT Narrative Resulting Agency Comment Spec In Lab Richard Pascal MD CHEMISTRY ORDERABLES Performing Organization Address [facility] Co de Phone Number [facility] [place] [address] * POCT Glucose (09/20/2022 11:25 PM EDT) Glucose, POC 166 65 - 199 mg/dL [facility] Comment: Supplemental ranges: <140 mg/dL before meals <180 mg/dL all other times of the day Blood 09/20/2022 11:2 5 PM EDT 09/20/2022 11:25 PM EDT Olamide Stallings MD POINT OF CARE TEST O GABRIELLA [facility] [place] [address] * (ABNORMAL) POCT Glucose (09/20/2022 9:19 PM EDT) Glucose, POC 291(H) 65 - 199 mg/dL [facility] Comment: Supplemental ranges: <140 mg/dL before meals <180 mg/dL all other times of the day Blood 09/20/2022 9:19 PM EDT 09/20/2022 9:19 PM EDT Olamide Stallings MD POINT OF CARE TEST O GABRIELLA Performing Organization Address [facility] [place]/[facility] Co de Phone Number [facility] [place] [address] * (ABNORMAL) POCT Glucose (09/20/2022 4:09 PM EDT) Glucose, POC 221(H) 65 - 199 mg/dL [facility] Comment: Supplemental ranges: <140 mg/dL before meals <180 mg/dL all other times of the day Blood 09/20/2022 4:09 PM EDT 09/20/2022 4:09 PM EDT Olamide Stallings MD POINT OF CARE TEST O RDERAREYMUNDO Performing Organization Address City/State/[facility] Co de Phone Number [facility] [place] [address] * (ABNORMAL) POCT Glucose (09/20/2022 11:06 AM EDT) Glucose, POC 221(H) 65 - 199 mg/dL [facility] Comment: Supplemental ranges: <140 mg/dL before meals <180 mg/dL all other times of the day Blood 09/20/2022 11:0 6 AM EDT 09/20/2022 11:06 AM EDT Olamide Stallings MD POINT OF CARE TEST O RDERABLES Performing Organization Address [facility] [place]/[facility] Co de Phone Number [facility] [place] [address] * POCT Glucose (09/20/2022 5:39 AM EDT) Glucose, POC 187 65 - 199 mg/dL [facility] Comment: Supplemental ranges: <140 mg/dL before meals <180 mg/dL all other times of the day Blood 09/20/2022 5:39 AM EDT 09/20/2022 5:39 AM EDT Olamide Stallings MD POINT OF CARE TEST O RDERAREYMUNDO Performing Organization Address [facility] [place]/[facility] Co de Phone Number [facility] [place] [address] * (ABNORMAL) Differential, Automated (09/20/2022 5:06 AM EDT) [facility] Signature Neutrophil % 43.5 % [facility] Neutrophil Absolute 2.83 1.70 - 6.10 x10(3)/mc L [facility] Lymph % 40.2 % [facility] Lymphocytes Abs 2.6 0.9 - 3.2 x10(3)/mc L [facility] Monocyte % 11.1 % [facility] Monocyte Abs 0.7 0.3 - 0.9 x10(3)/mc L [facility] Eos % 2.8 % [facility] Eosinophils Abs 0.2 0.0 - 0.4 x10(3)/mc L [facility] Basophil % 1.5 % [facility] Baso Absolute 0.1 0.0 - 0.1 x10(3)/mc L [facility] Immature Gran % 0.90 % [facility] Comment: Immature granulocytes(IG's)percentage and absolute count will include metamyelocytes, myelocytes, and promyelocytes. Blood smears from CBCs yielding IG's will be scanned manually for concordance. If this scan disagrees with the automated IG or if promyelocytes are noted, a manual differential will be performed. Immature Gran Absolute 0.06(H) 0.00 - 0.04 x10(3)/mc L [facility] Blood 09/20/2022 5:06 AM EDT 09/20/2022 5:29 AM EDT Narrative Resulting Agency Comment Spec In Lab Alan Hunt MD HEMATOLOGY ORDERABLE S [facility] [place] [address] * (ABNORMAL) Hemogram (09/20/2022 5:06 AM EDT) White Blood Cell 6.5 4.0 - 9.5 x10(3)/[facility] Red Blood Cell 4.68 4.00 - 5.21 x10(6)/[facility] Hemoglobin 11.1(L) 11.7 - 15.5 g/dL [facility] Hematocrit 36.8 35.7 - 45.8 % [facility] Mean Cell Volume 78.6(L) 82.6 - 94.4 fL [facility] Mean Cell Hemoglobin 23.7(L) 27.1 - 32.0 pg [facility] Mean Cell Hemoglobin Concentration 30.2(L) 31.7 - 35.0 g/dL [facility] Platelet 232 145 - 357 x10(3)/ L [facility] RDW Standard Deviation 78.3(H) 37.0 - 46.0 fL [facility] RDW coefficient of variation 29.0(H) 11.5 - 14.1 % [facility] Mean Platelet Volume Not Measured 7.6 - 12.9 fL [facility] NRBC% auto 0.0 % [facility] NRBC Absolute 0.000 0.000 - 0.000 x10(3)/ L [facility] Blood 09/20/2022 5:06 AM EDT 09/20/2022 5:29 AM EDT Narrative Resulting Agency Comment Spec In Lab Alan Hunt MD HEMATOLOGY ORDERABLE S [facility] [place] [address] * (ABNORMAL) Basic Metabolic Panel (non-fasting) (09/20/2022 5:06 AM EDT) Glucose 206(H) 65 - 199 mg/dL [facility] Comment:Diabetes: >=200 mg/d L plus symptoms Blood Urea Nitrogen 23(H) 8 - 18 mg/dL [facility] Creatinine 0.50(L) 0.70 - 1.20 mg/dL [facility] Sodium 135 135 - 145 mmol/L [facility] Potassium 4.9 3.5 - 5.0 mmol/L [facility] Comment: Please note: ??Patients with WBC >100,000 may have falsely elevated Potassium levels. ??For accurate Potassium quantification in these patients send serum separator tube (gold top) for subsequent determinations. ??Contact the Clinical Chemistry Laboratory if there are any questions. Chloride 99 98 - 107 mmol/L [facility] Carbon Dioxide 26 22 - 31 mmol/L [facility] Anion Gap 10 5 - 15 mmol/L [facility] Calcium 9.6 8.5 - 10.5 mg/dL [facility] Est Glomerular Filtration Rate 106 >=60 mL/min/1. 73 m?? [facility] Comment: This patient's estimated GFR was [...] In Lab Richard Pascal MD CHEMISTRY ORDERABLES [facility] [place] [address] * Phosphorus (09/20/2022 5:06 AM EDT) Phosphorus 3.5 2.5 - 4.5 mg/dL [facility] Blood 09/20/2022 5:06 AM EDT 09/20/2022 5:29 AM EDT Narrative Resulting Agency Comment Spec In Lab Richard Pascal MD CHEMISTRY ORDERABLES Performing Organization Address [facility] [place]/ZIP Co de Phone Number [facility] [place] [address] * Magnesium (09/20/2022 5:06 AM EDT) Magnesium 0.83 0.69 - 1.07 mmol/L [facility] Blood 09/20/2022 5:06 AM EDT 09/20/2022 5:29 AM EDT Narrative Resulting Agency Comment Spec In Lab Richard Pascal MD CHEMISTRY ORDERABLES Performing Organization Address [facility] [place]/[facility] Co de Phone Number [facility] [place] [address] * (ABNORMAL) POCT Glucose (09/19/2022 10:53 PM EDT) Glucose, POC 209(H) 65 - 199 mg/dL [facility] Comment: Supplemental ranges: <140 mg/dL before meals <180 mg/dL all other times of the day Blood 09/19/2022 10:5 3 PM EDT 09/19/2022 10:53 PM EDT Olamide Stallings MD POINT OF CARE TEST O RDERABLES [facility] [place] [address] * (ABNORMAL) POCT Glucose (09/19/2022 8:51 PM EDT) Glucose, POC 329(H) 65 - 199 mg/dL [facility] Comment: Supplemental ranges: <140 mg/dL before meals <180 mg/dL all other times of the day Blood 09/19/2022 8:51 PM EDT 09/19/2022 8:51 PM EDT Olamide Stallings MD POINT OF CARE TEST O GABRIELLA [facility] [place] [address] * (ABNORMAL) POCT Glucose (09/19/2022 7:57 PM EDT) Glucose, POC 275(H) 65 - 199 mg/dL [facility] Comment: Supplemental ranges: <140 mg/dL before meals <180 mg/dL all other times of the day Blood 09/19/2022 7:57 PM EDT 09/19/2022 7:57 PM EDT Olamide Stallings MD POINT OF CARE TEST O GABRIELLA Performing Organization Address City/[facility] [place]/ZIP Co de Phone Number [facility] [place] [address] * (ABNORMAL) POCT Glucose (09/19/2022 4:02 PM EDT) Glucose, POC 221(H) 65 - 199 mg/dL [facility] Comment: Supplemental ranges: <140 mg/dL before meals <180 mg/dL all other times of the day Blood 09/19/2022 4:02 PM EDT 09/19/2022 4:02 PM EDT Olamide Stallings MD POINT OF CARE TEST O RDERAREYMUNDO [facility] [place] [address] * POCT Glucose (09/19/2022 11:50 AM EDT) Glucose, POC 194 65 - 199 mg/dL [facility] Comment: Supplemental ranges: <140 mg/dL before meals <180 mg/dL all other times of the day Blood 09/19/2022 11:5 0 AM EDT 09/19/2022 11:50 AM EDT Olamide Stallings MD POINT OF CARE TEST O GABRIELLA Performing Organization Address [facility] [place]/ZIP Co de Phone Number [facility] [place] [address] * (ABNORMAL) POCT Glucose (09/19/2022 6:45 AM EDT) Glucose, POC 219(H) 65 - 199 mg/dL [facility] Comment: Supplemental ranges: <140 mg/dL before meals <180 mg/dL all other times of the day Blood 09/19/2022 6:45 AM EDT 09/19/2022 6:45 AM EDT Alan Hunt MD POINT OF CARE TEST Chepe QUIROZ Performing Organization Address [facility] [place]/[facility] Co de Phone Number [facility] [place] [address] * (ABNORMAL) Basic Metabolic Panel (non-fasting) (09/19/2022 4:39 AM EDT) Glucose 194 65 - 199 mg/dL [facility] Comment:Diabetes: >=200 mg/d L plus symptoms Blood Urea Nitrogen 21(H) 8 - 18 mg/dL [facility] Creatinine 0.52(L) 0.70 - 1.20 mg/dL [facility] Sodium 134(L) 135 - 145 mmol/L [facility] Potassium 4.6 3.5 - 5.0 mmol/L [facility] Comment: Please note: ??Patients with WBC >100,000 may have falsely elevated Potassium levels. ??For accurate Potassium quantification in these patients send serum separator tube (gold top) for subsequent determinations. ??Contact the Clinical Chemistry Laboratory if there are any questions. Chloride 98 98 - 107 mmol/L [facility] Carbon Dioxide 27 22 - 31 mmol/L [facility] Anion Gap 9 5 - 15 mmol/L [facility] Calcium 9.3 8.5 - 10.5 mg/dL [facility] Est Glomerular Filtration Rate 105 >=60 mL/min/1. 73 m?? [facility] Comment: This patient's estimated GFR was [...] CHEMISTRY ORDERABLES Performing Organization Address [facility] de Phone Number [facility] [place] [address] * Phosphorus (09/19/2022 4:39 AM EDT) Phosphorus 3.3 2.5 - 4.5 mg/dL [facility] Blood 09/19/2022 4:39 AM EDT 09/19/2022 4:51 AM EDT Narrative Resulting Agency Comment Spec In Lab Richard Pascal MD CHEMISTRY ORDERABLES Performing Organization Address City/[facility] Co de Phone Number [facility] [place] [address] * Magnesium (09/19/2022 4:39 AM EDT) Magnesium 0.82 0.69 - 1.07 mmol/L [facility] Blood 09/19/2022 4:39 AM EDT 09/19/2022 4:51 AM EDT Narrative Resulting Agency Comment Spec In Lab Richard Pascal MD CHEMISTRY ORDERABLES Performing Organization Address [facility]/State/ZIP Co de Phone Number [facility] [place] [address] * POCT Glucose (09/19/2022 3:49 AM EDT) Glucose, POC 184 65 - 199 mg/dL [facility] Comment: Supplemental ranges: <140 mg/dL before meals <180 mg/dL all other times of the day Blood 09/19/2022 3:49 AM EDT 09/19/2022 3:49 AM EDT Alan Hunt MD POINT OF CARE TEST O RDERABLES [facility] [place] [address] * POCT Glucose (09/18/2022 11:54 PM EDT) Glucose, POC 175 65 - 199 mg/dL [facility] Comment: Supplemental ranges: <140 mg/dL before meals <180 mg/dL all other times of the day Blood 09/18/2022 11:5 4 PM EDT 09/18/2022 11:54 PM EDT Alan Hunt MD POINT OF CARE TEST O RDERAREYMUNDO Performing Organization Address [facility] [place]/ZIP Co de Phone Number [facility] [place] [address] * (ABNORMAL) POCT Glucose (09/18/2022 9:07 PM EDT) Glucose, POC 242(H) 65 - 199 mg/dL [facility] Comment: Supplemental ranges: <140 mg/dL before meals <180 mg/dL all other times of the day Blood 09/18/2022 9:07 PM EDT 09/18/2022 9:07 PM EDT Alan Hunt MD POINT OF CARE TEST O RDERABLES [facility] [place] [address] * POCT Glucose (09/18/2022 4:32 PM EDT) Glucose, POC 175 65 - 199 mg/dL [facility] Comment: Supplemental ranges: <140 mg/dL before meals <180 mg/dL all other times of the day Blood 09/18/2022 4:32 PM EDT 09/18/2022 4:32 PM EDT Alan Hunt MD POINT OF CARE TEST O RDERAREYMUNDO [facility] [place] [address] * POCT Glucose (09/18/2022 2:14 PM EDT) Glucose, POC 188 65 - 199 mg/dL [facility] Comment: Supplemental ranges: <140 mg/dL before meals <180 mg/dL all other times of the day Blood 09/18/2022 2:14 PM EDT 09/18/2022 2:14 PM EDT Alan Hunt MD POINT OF CARE TEST O GABRIELLA Performing Organization Address City/[facility]/ZIP Co de Phone Number [facility] [place] [address] * (ABNORMAL) POCT Glucose (09/18/2022 11:45 AM EDT) Glucose, POC 247(H) 65 - 199 mg/dL [facility] Comment: Supplemental ranges: <140 mg/dL before meals <180 mg/dL all other times of the day Blood 09/18/2022 11:4 5 AM EDT 09/18/2022 11:45 AM EDT Alan Hunt MD POINT OF CARE TEST O RDERAREYMUNDO [facility] [place] [address] * POCT Glucose (09/18/2022 6:47 AM EDT) Glucose, POC 197 65 - 199 mg/dL [facility] Comment: Supplemental ranges: <140 mg/dL before meals <180 mg/dL all other times of the day Blood 09/18/2022 6:47 AM EDT 09/18/2022 6:47 AM EDT Alan Hunt MD POINT OF CARE TEST O RDERABLES Performing Organization Address City/State/[facility] Co de Phone Number [facility] [place] [address] * (ABNORMAL) Basic Metabolic Panel (non-fasting) (09/18/2022 4:53 AM EDT) Glucose 197 65 - 199 mg/dL [facility] Comment:Diabetes: >=200 mg/d L plus symptoms Blood Urea Nitrogen 18 8 - 18 mg/dL [facility] Creatinine 0.53(L) 0.70 - 1.20 mg/dL [facility] Sodium 136 135 - 145 mmol/L [facility] Potassium 4.5 3.5 - 5.0 mmol/L [facility] Comment: Please note: ??Patients with WBC >100,000 may have falsely elevated Potassium levels. ??For accurate Potassium quantification in these patients send serum separator tube (gold top) for subsequent determinations. ??Contact the Clinical Chemistry Laboratory if there are any questions. Chloride 100 98 - 107 mmol/L [facility] Carbon Dioxide 27 22 - 31 mmol/L [facility] Anion Gap 9 5 - 15 mmol/L [facility] Calcium 9.5 8.5 - 10.5 mg/dL [facility] Est Glomerular Filtration Rate 105 >=60 mL/min/1. 73 m?? [facility] Comment: This patient's estimated GFR was [...] CHEMISTRY ORDERABLES Performing Organization Address [facility] [place]/[facility] Co de Phone Number [facility] [place] [address] * Phosphorus (09/18/2022 4:53 AM EDT) Phosphorus 3.2 2.5 - 4.5 mg/dL [facility] Blood 09/18/2022 4:53 AM EDT 09/18/2022 5:46 AM EDT Narrative Resulting Agency Comment Spec In Lab Richard Pascal MD CHEMISTRY ORDERABLES Performing Organization Address [facility] de Phone Number [facility] [place] [address] * Magnesium (09/18/2022 4:53 AM EDT) Magnesium 0.79 0.69 - 1.07 mmol/L [facility] Blood 09/18/2022 4:53 AM EDT 09/18/2022 5:46 AM EDT Narrative Resulting Agency Comment Spec In Lab Richard Pascal MD CHEMISTRY ORDERABLES Performing Organization Address [facility] de Phone Number [facility] [place] [address] * POCT Glucose (09/18/2022 4:06 AM EDT) Glucose, POC 159 65 - 199 mg/dL [facility] Comment: Supplemental ranges: <140 mg/dL before meals <180 mg/dL all other times of the day Blood 09/18/2022 4:06 AM EDT 09/18/2022 4:06 AM EDT Alan Hunt MD POINT OF CARE TEST O RDERABLES [facility] [place] [address] * POCT Glucose (09/17/2022 11:02 PM EDT) Glucose, POC 141 65 - 199 mg/dL [facility] Comment: Supplemental ranges: <140 mg/dL before meals <180 mg/dL all other times of the day Blood 09/17/2022 11:0 2 PM EDT 09/17/2022 11:02 PM EDT Alan Hunt MD POINT OF CARE TEST O RDERABLES Performing Organization Address City/[facility] Co de Phone Number [facility] [place] [address] * (ABNORMAL) POCT Glucose (09/17/2022 9:14 PM EDT) Glucose, POC 201(H) 65 - 199 mg/dL [facility] Comment: Supplemental ranges: <140 mg/dL before meals <180 mg/dL all other times of the day Blood 09/17/2022 9:14 PM EDT 09/17/2022 9:14 PM EDT Alan Hunt MD POINT OF CARE TEST O RDERABLES Performing Organization Address City/[facility]/ZIP Co de Phone Number [facility] [place] [address] * POCT Glucose (09/17/2022 4:14 PM EDT) Glucose, POC 173 65 - 199 mg/dL [facility] Comment: Supplemental ranges: <140 mg/dL before meals <180 mg/dL all other times of the day Blood 09/17/2022 4:14 PM EDT 09/17/2022 4:14 PM EDT Alan Hunt MD POINT OF CARE TEST O RDERABLES [facility] [place] [address] * POCT Glucose (09/17/2022 11:34 AM EDT) Glucose, POC 181 65 - 199 mg/dL [facility] Comment: Supplemental ranges: <140 mg/dL before meals <180 mg/dL all other times of the day Blood 09/17/2022 11:3 4 AM EDT 09/17/2022 11:34 AM EDT Alan Hunt MD POINT OF CARE TEST O GABRIELLA [facility] [place] [address] * POCT Glucose (09/17/2022 6:57 AM EDT) Glucose, POC 146 65 - 199 mg/dL [facility] Comment: Supplemental ranges: <140 mg/dL before meals <180 mg/dL all other times of the day Blood 09/17/2022 6:57 AM EDT 09/17/2022 6:57 AM EDT Alan Hunt MD POINT OF CARE TEST O GABRIELLA [facility] [place] [address] * POCT Glucose (09/17/2022 3:07 AM EDT) Glucose, POC 149 65 - 199 mg/dL [facility] Comment: Supplemental ranges: <140 mg/dL before meals <180 mg/dL all other times of the day Blood 09/17/2022 3:07 AM EDT 09/17/2022 3:07 AM EDT Alan Hunt MD POINT OF CARE TEST O GABRIELLA [facility] [place] [address] * POCT Glucose (09/17/2022 12:59 AM EDT) Glucose, POC 174 65 - 199 mg/dL [facility] Comment: Supplemental ranges: <140 mg/dL before meals <180 mg/dL all other times of the day Blood 09/17/2022 12:5 9 AM EDT 09/17/2022 12:59 AM EDT Alan Hunt MD POINT OF CARE TEST O RDERABLES [facility] [place] [address] * POCT Glucose (09/16/2022 8:03 PM EDT) Glucose, POC 139 65 - 199 mg/dL [facility] Comment: Supplemental ranges: <140 mg/dL before meals <180 mg/dL all other times of the day Blood 09/16/2022 8:03 PM EDT 09/16/2022 8:03 PM EDT Alan Hunt MD POINT OF CARE TEST O HUGHERAREYMUNDO Performing Organization Address [facility] Co de Phone Number [facility] [place] [address] * POCT Glucose (09/16/2022 4:22 PM EDT) Glucose, POC 155 65 - 199 mg/dL [facility] Comment: Supplemental ranges: <140 mg/dL before meals <180 mg/dL all other times of the day Blood 09/16/2022 4:22 PM EDT 09/16/2022 4:22 PM EDT Alan Hunt MD POINT OF CARE TEST O RDERABLES Performing Organization Address City/[facility] Co de Phone Number [facility] [place] [address] * POCT Glucose (09/16/2022 11:21 AM EDT) Glucose, POC 170 65 - 199 mg/dL [facility] Comment: Supplemental ranges: <140 mg/dL before meals <180 mg/dL all other times of the day Blood 09/16/2022 11:2 1 AM EDT 09/16/2022 11:21 AM EDT Alan Hunt MD POINT OF CARE TEST O RDERABLES Performing Organization Address City/[facility] Co de Phone Number [facility] [place] [address] * POCT Glucose (09/16/2022 6:33 AM EDT) Glucose, POC 111 65 - 199 mg/dL [facility] Comment: Supplemental ranges: <140 mg/dL before meals <180 mg/dL all other times of the day Blood 09/16/2022 6:33 AM EDT 09/16/2022 6:33 AM EDT Balaji Mayer MD POINT OF CARE TEST O GABRIELLA Performing Organization Address [facility] Co de Phone Number [facility] [place] [address] * (ABNORMAL) Differential, Automated (09/16/2022 3:08 AM EDT) Neutrophil % 54.3 % [facility] Neutrophil Absolute 3.63 1.70 - 6.10 x10(3)/mc L [facility] Lymph % 28.2 % [facility] Lymphocytes Abs 1.9 0.9 - 3.2 x10(3)/mc L [facility] Monocyte % 12.4 % [facility] Monocyte Abs 0.8 0.3 - 0.9 x10(3)/mc L [facility] Eos % 2.8 % [facility] Eosinophils Abs 0.2 0.0 - 0.4 x10(3)/mc L [facility] Basophil % 1.3 % [facility] Baso Absolute 0.1 0.0 - 0.1 x10(3)/mc L [facility] Immature Gran % 1.00 % [facility] Comment: Immature granulocytes(IG's)percentage and absolute count will include metamyelocytes, myelocytes, and promyelocytes. Blood smears from CBCs yielding IG's will be scanned manually for concordance. If this scan disagrees with the automated IG or if promyelocytes are noted, a manual differential will be performed. Immature Gran Absolute 0.07(H) 0.00 - 0.04 x10(3)/ L [facility] Blood 09/16/2022 3:08 AM EDT 09/16/2022 3:12 AM EDT Narrative Resulting Agency Comment Spec In Lab Jigar Streeter MD HEMATOLOGY ORDERABLE S [facility] [place] [address] * (ABNORMAL) Hemogram (09/16/2022 3:08 AM EDT) White Blood Cell 6.7 4.0 - 9.5 x10(3)/[facility] LABORAT[facility] Red Blood Cell 4.64 4.00 - 5.21 x10(6)/[facility] Hemoglobin 10.7(L) 11.7 - 15.5 g/dL [facility] Hematocrit 35.6(L) 35.7 - 45.8 % [facility] Mean Cell Volume 76.7(L) 82.6 - 94.4 fL [facility] Mean Cell Hemoglobin 23.1(L) 27.1 - 32.0 pg [facility] Mean Cell Hemoglobin Concentration 30.1(L) 31.7 - 35.0 g/dL [facility] Platelet 242 145 - 357 x10(3)/ L [facility] RDW Standard Deviation 74.3(H) 37.0 - 46.0 fL [facility] RDW coefficient of variation 28.6(H) 11.5 - 14.1 % [facility] Mean Platelet Volume 9.8 7.6 - 12.9 fL [facility] NRBC% auto 0.0 % [facility] NRBC Absolute 0.000 0.000 - 0.000 x10(3)/ L [facility] Blood 09/16/2022 3:08 AM EDT 09/16/2022 3:12 AM EDT Narrative Resulting Agency Comment Spec In Lab Jigar Streeter MD HEMATOLOGY ORDERABLE S Performing Organization Address City/[facility]/ZIP Co de Phone Number [facility] [place] [address] * Phosphorus (09/16/2022 3:08 AM EDT) Phosphorus 3.0 2.5 - 4.5 mg/dL [facility] Blood 09/16/2022 3:08 AM EDT 09/16/2022 3:12 AM EDT Narrative Resulting Agency Comment Spec In Lab Richard Pascal MD CHEMISTRY ORDERABLES Performing Organization Address [facility] Co de Phone Number [facility] [place] [address] * Magnesium (09/16/2022 3:08 AM EDT) Magnesium 0.80 0.69 - 1.07 mmol/L [facility] Blood 09/16/2022 3:08 AM EDT 09/16/2022 3:12 AM EDT Narrative Resulting Agency Comment Spec In Lab Richard Pascal MD CHEMISTRY ORDERABLES Performing Organization Address [facility] Co de Phone Number [facility] [place] [address] * (ABNORMAL) Basic Metabolic Panel (non-fasting) (09/16/2022 3:08 AM EDT) Glucose 161 65 - 199 mg/dL [facility] Comment:Diabetes: >=200 mg/d L plus symptoms Blood Urea Nitrogen 15 8 - 18 mg/dL [place] [facility] Creatinine 0.47(L) 0.70 - 1.20 mg/dL [facility] Sodium 140 135 - 145 mmol/L [facility] Potassium 4.0 3.5 - 5.0 mmol/L [facility] Comment: Please note: ??Patients with WBC >100,000 may have falsely elevated Potassium levels. ??For accurate Potassium quantification in these patients send serum separator tube (gold top) for subsequent determinations. ??Contact the Clinical Chemistry Laboratory if there are any questions. Chloride 103 98 - 107 mmol/L [facility] Carbon Dioxide 29 22 - 31 mmol/L [facility] Anion Gap 8 5 - 15 mmol/L [facility] Calcium 9.4 8.5 - 10.5 mg/dL [facility] Est Glomerular Filtration Rate 108 >=60 mL/min/1. 73 m?? [facility] Comment: This patient's estimated GFR was [...] In Lab Richard Pascal MD CHEMISTRY ORDERABLES [facility] [place] [address] * POCT Glucose (09/16/2022 2:59 AM EDT) Glucose, POC 157 65 - 199 mg/dL [facility] Comment: Supplemental ranges: <140 mg/dL before meals <180 mg/dL all other times of the day Blood 09/16/2022 2:59 AM EDT 09/16/2022 2:59 AM EDT Balaji Mayer MD POINT OF CARE TEST O RDERABLES [facility] [place] [address] * POCT Glucose (09/15/2022 11:15 PM EDT) Glucose, POC 169 65 - 199 mg/dL [facility] Comment: Supplemental ranges: <140 mg/dL before meals <180 mg/dL all other times of the day Blood 09/15/2022 11:1 5 PM EDT 09/15/2022 11:15 PM EDT Balaji Mayer MD POINT OF CARE TEST O RDERAREYMUNDO Performing Organization Address City/[facility] Co de Phone Number [facility] [place] [address] * POCT Glucose (09/15/2022 7:17 PM EDT) Glucose, POC 153 65 - 199 mg/dL [facility] Comment: Supplemental ranges: <140 mg/dL before meals <180 mg/dL all other times of the day Blood 09/15/2022 7:17 PM EDT 09/15/2022 7:17 PM EDT Balaji Mayer MD POINT OF CARE TEST O RDERAREYMUNDO Performing Organization Address [facility] Co de Phone Number [facility] [place] [address] * POCT Glucose (09/15/2022 3:46 PM EDT) Glucose, POC 136 65 - 199 mg/dL [facility] Comment: Supplemental ranges: <140 mg/dL before meals <180 mg/dL all other times of the day Blood 09/15/2022 3:46 PM EDT 09/15/2022 3:46 PM EDT Balaji Mayer MD POINT OF CARE TEST O RDERAREYMUNDO Performing Organization Address City/[facility] Co de Phone Number [facility] [place] [address] * POCT Glucose (09/15/2022 11:15 AM EDT) Glucose, POC 133 65 - 199 mg/dL [facility] Comment: Supplemental ranges: <140 mg/dL before meals <180 mg/dL all other times of the day Blood 09/15/2022 11:1 5 AM EDT 09/15/2022 11:15 AM EDT Balaji Mayer MD POINT OF CARE TEST O RDERABLES [facility] [place] [address] * POCT Glucose (09/15/2022 6:30 AM EDT) Glucose, POC 95 65 - 199 mg/dL [facility] Comment: Supplemental ranges: <140 mg/dL before meals <180 mg/dL all other times of the day Blood 09/15/2022 6:30 AM EDT 09/15/2022 6:30 AM EDT Balaji Mayer MD POINT OF CARE TEST O RDERABLES Performing Organization Address [facility] Co de Phone Number [facility] [place] [address] * (ABNORMAL) Differential, Automated (09/15/2022 3:00 AM EDT) Neutrophil % 46.9 % [facility] Neutrophil Absolute 2.78 1.70 - 6.10 x10(3)/mc L [facility] Lymph % 34.9 % [facility] Lymphocytes Abs 2.1 0.9 - 3.2 x10(3)/mc L [facility] Monocyte % 12.1 % [facility] Monocyte Abs 0.7 0.3 - 0.9 x10(3)/mc L [facility] Eos % 3.7 % [facility] Eosinophils Abs 0.2 0.0 - 0.4 x10(3)/mc L [facility] Basophil % 1.2 % [facility] Baso Absolute 0.1 0.0 - 0.1 x10(3)/mc L [facility] Immature Gran % 1.20 % [facility] Comment: Immature granulocytes(IG's)percentage and absolute count will include metamyelocytes, myelocytes, and promyelocytes. Blood smears from CBCs yielding IG's will be scanned manually for concordance. If this scan disagrees with the automated IG or if promyelocytes are noted, a manual differential will be performed. Immature Gran Absolute 0.07(H) 0.00 - 0.04 x10(3)/ L [facility] Blood 09/15/2022 3:00 AM EDT 09/15/2022 3:07 AM EDT Narrative Resulting Agency Comment Spec In Lab Jigar Streeter MD HEMATOLOGY ORDERABLE S Performing Organization Address City/State/[facility] Co de Phone Number [facility] [place] [address] * (ABNORMAL) Hemogram (09/15/2022 3:00 AM EDT) White Blood Cell 5.9 4.0 - 9.5 x10(3)/[facility] Red Blood Cell 4.43 4.00 - 5.21 x10(6)/[facility] Hemoglobin 10.2(L) 11.7 - 15.5 g/dL [facility] Hematocrit 34.4(L) 35.7 - 45.8 % [facility] Mean Cell Volume 77.7(L) 82.6 - 94.4 fL [facility] Mean Cell Hemoglobin 23.0(L) 27.1 - 32.0 pg [facility] Mean Cell Hemoglobin Concentration 29.7(L) 31.7 - 35.0 g/dL [facility] Platelet 252 145 - 357 x10(3)/[facility] RDW Standard Deviation 76.5(H) 37.0 - 46.0 fL [facility] RDW coefficient of variation 29.1(H) 11.5 - 14.1 % [facility] Mean Platelet Volume 9.7 7.6 - 12.9 fL [facility] NRBC% auto 0.0 % [facility] NRBC Absolute 0.000 0.000 - 0.000 x10(3)/[facility] Blood 09/15/2022 3:00 AM EDT 09/15/2022 3:07 AM EDT Narrative Resulting Agency Comment Spec In Lab Jigar Streeter MD HEMATOLOGY ORDERABLE S Performing Organization Address City/[facility]/ZIP Co de Phone Number [facility] [place] [address] * Phosphorus (09/15/2022 3:00 AM EDT) Phosphorus 2.6 2.5 - 4.5 mg/dL [facility] Blood 09/15/2022 3:00 AM EDT 09/15/2022 3:07 AM EDT Narrative Resulting Agency Comment Spec In Lab Richard Pascal MD CHEMISTRY ORDERABLES Performing Organization Address [facility] Co de Phone Number [facility] [place] [address] * Magnesium (09/15/2022 3:00 AM EDT) Magnesium 0.77 0.69 - 1.07 mmol/L [facility] Blood 09/15/2022 3:00 AM EDT 09/15/2022 3:07 AM EDT Narrative Resulting Agency Comment Spec In Lab Richard Pascal MD CHEMISTRY ORDERABLES Performing Organization Address [facility] Co de Phone Number [facility] [place] [address] * (ABNORMAL) Basic Metabolic Panel (non-fasting) (09/15/2022 3:00 AM EDT) Glucose 121 65 - 199 mg/dL [facility] Comment:Diabetes: >=200 mg/d L plus symptoms Blood Urea Nitrogen 11 8 - 18 mg/dL [facility] Creatinine 0.44(L) 0.70 - 1.20 mg/dL [facility] Sodium 140 135 - 145 mmol/L [facility] Potassium 4.0 3.5 - 5.0 mmol/L [facility] Comment: Please note: ??Patients with WBC >100,000 may have falsely elevated Potassium levels. ??For accurate Potassium quantification in these patients send serum separator tube (gold top) for subsequent determinations. ??Contact the Clinical Chemistry Laboratory if there are any questions. Chloride 102 98 - 107 mmol/L [facility] Carbon Dioxide 27 22 - 31 mmol/L [facility] Anion Gap 11 5 - 15 mmol/L [facility] Calcium 9.2 8.5 - 10.5 mg/dL [facility] Est Glomerular Filtration Rate 109 >=60 mL/min/1. 73 m?? [facility] Comment: This patient's estimated GFR was [...] In Lab Richard Pascal MD CHEMISTRY ORDERABLES [facility] [place] [address] * POCT Glucose (09/15/2022 2:58 AM EDT) Glucose, POC 114 65 - 199 mg/dL [facility] Comment: Supplemental ranges: <140 mg/dL before meals <180 mg/dL all other times of the day Blood 09/15/2022 2:58 AM EDT 09/15/2022 2:58 AM EDT Balaji Mayer MD POINT OF CARE TEST O RDERABLES [facility] [place] [address] * POCT Glucose (09/14/2022 11:29 PM EDT) Glucose, POC 124 65 - 199 mg/dL [facility] Comment: Supplemental ranges: <140 mg/dL before meals <180 mg/dL all other times of the day Blood 09/14/2022 11:2 9 PM EDT 09/14/2022 11:29 PM EDT Balaji Mayer MD POINT OF CARE TEST O RDERABLES [facility] [place] [address] * XR Hip 2-3 Views Left (09/14/2022 [...] who have questions please contact the health patient care technician instructor that requested your imaging first. ? Narrative [...] patients who have questions please contactthe health patient care technician instructor that requested your imaging first. Balaji Mayer MD IMG DX ORDERABLES * POCT Glucose (09/14/2022 7:22 PM EDT) [facility] Signature Glucose, POC 120 65 - 199 mg/dL [facility] Comment: Supplemental ranges: <140 mg/dL before meals <180 mg/dL all other times of the day Blood 09/14/2022 7:22 PM EDT 09/14/2022 7:22 PM EDT Balaji Mayer MD POINT OF CARE TEST O RDERABLES [facility] [place] [address] * POCT Glucose (09/14/2022 3:38 PM EDT) Glucose, POC 132 65 - 199 mg/dL [facility] Comment: Supplemental ranges: <140 mg/dL before meals <180 mg/dL all other times of the day Blood 09/14/2022 3:38 PM EDT 09/14/2022 3:38 PM EDT Balaji Mayer MD POINT OF CARE TEST O GABRIELLA [facility] [place] [address] * POCT Glucose (09/14/2022 11:01 AM EDT) Glucose, POC 128 65 - 199 mg/dL [facility] Comment: Supplemental ranges: <140 mg/dL before meals <180 mg/dL all other times of the day Blood 09/14/2022 11:0 1 AM EDT 09/14/2022 11:01 AM EDT Balaji Mayer MD POINT OF CARE TEST O GABRIELLA Performing Organization Address City/[facility] Co de Phone Number [facility] [place] [address] * POCT Glucose (09/14/2022 6:33 AM EDT) Glucose, POC 94 65 - 199 mg/dL [facility] Comment: Supplemental ranges: <140 mg/dL before meals <180 mg/dL all other times of the day Blood 09/14/2022 6:33 AM EDT 09/14/2022 6:33 AM EDT Chong Chao MD POINT OF CARE TEST O RDERAREYMUNDO Performing Organization Address City/[facility] Co de Phone Number [facility] [place] [address] * (ABNORMAL) Differential, Automated (09/14/2022 3:33 AM EDT) Neutrophil % 49.0 % [facility] Neutrophil Absolute 2.69 1.70 - 6.10 x10(3)/mc L [facility] Lymph % 32.4 % [facility] Lymphocytes Abs 1.8 0.9 - 3.2 x10(3)/mc L [facility] Monocyte % 12.4 % [facility] Monocyte Abs 0.7 0.3 - 0.9 x10(3)/[facility] Eos % 4.2 % [facility] Eosinophils Abs 0.2 0.0 - 0.4 x10(3)/[facility] Basophil % 1.1 % [facility] Baso Absolute 0.1 0.0 - 0.1 x10(3)/[facility] Immature Gran % 0.90 % [facility] Comment: Immature granulocytes(IG's)percentage and absolute count will include metamyelocytes, myelocytes, and promyelocytes. Blood smears from CBCs yielding IG's will be scanned manually for concordance. If this scan disagrees with the automated IG or if promyelocytes are noted, a manual differential will be performed. Immature Gran Absolute 0.05(H) 0.00 - 0.04 x10(3)/ L [facility] Blood 09/14/2022 3:33 AM EDT 09/14/2022 5:07 AM EDT Narrative Resulting Agency Comment Spec In Lab Jigar Streeter MD HEMATOLOGY ORDERABLE S Performing Organization Address City/State/[facility] Co de Phone Number [facility] [place] [address] * (ABNORMAL) Hemogram (09/14/2022 3:33 AM EDT) White Blood Cell 5.5 4.0 - 9.5 x10(3)/ L [facility] Red Blood Cell 4.39 4.00 - 5.21 x10(6)/mc L [facility] Hemoglobin 10.1(L) 11.7 - 15.5 g/dL [facility] Hematocrit 33.7(L) 35.7 - 45.8 % [facility] Mean Cell Volume 76.8(L) 82.6 - 94.4 fL [facility] Mean Cell Hemoglobin 23.0(L) 27.1 - 32.0 pg [facility] Mean Cell Hemoglobin Concentration 30.0(L) 31.7 - 35.0 g/dL [facility] Platelet 246 145 - 357 x10(3)/mc L [facility] RDW Standard Deviation 76.3(H) 37.0 - 46.0 fL [facility] RDW coefficient of variation 29.2(H) 11.5 - 14.1 % [facility] Mean Platelet Volume 10.2 7.6 - 12.9 fL [facility] NRBC% auto 0.0 % [facility] NRBC Absolute 0.000 0.000 - 0.000 x10(3)/mc L [facility] Blood 09/14/2022 3:33 AM EDT 09/14/2022 5:07 AM EDT Narrative Resulting Agency Comment Spec In Lab Jigar Streeter MD HEMATOLOGY ORDERABLE S [facility] [place] [id number] * Phosphorus (09/14/2022 3:33 AM EDT) Phosphorus 2.9 2.5 - 4.5 mg/dL [facility] Blood 09/14/2022 3:33 AM EDT 09/14/2022 5:07 AM EDT Narrative Resulting Agency Comment Spec In Lab Richard Pascal MD CHEMISTRY ORDERABLES Performing Organization Address City/[facility]/ZIP Co de Phone Number [facility] [place] [address] * Magnesium (09/14/2022 3:33 AM EDT) Magnesium 0.74 0.69 - 1.07 mmol/L [facility] Blood 09/14/2022 3:33 AM EDT 09/14/2022 5:07 AM EDT Narrative Resulting Agency Comment Spec In Lab Richard Pascal MD CHEMISTRY ORDERABLES Performing Organization Address City/[facility]/ZIP Co de Phone Number [facility] [address] * (ABNORMAL) Basic Metabolic Panel (non-fasting) (09/14/2022 3:33 AM EDT) Glucose Not Perf 65 - 199 [facility] Comment: Sample improperly processed prior to receipt. Diabetes: >=200 mg/dL plus symptoms Blood Urea Nitrogen 10 8 - 18 mg/dL [facility] Creatinine 0.45(L) 0.70 - 1.20 mg/dL [facility] Sodium 140 135 - 145 mmol/L [facility] Potassium 4.1 3.5 - 5.0 mmol/L [facility] Comment: Please note: ??Patients with WBC >100,000 may have falsely elevated Potassium levels. ??For accurate Potassium quantification in these patients send serum separator tube (gold top) for subsequent determinations. ??Contact the Clinical Chemistry Laboratory if there are any questions. Chloride 102 98 - 107 mmol/L [facility] Carbon Dioxide 28 22 - 31 mmol/L [facility] Anion Gap 10 5 - 15 mmol/L [facility] Calcium 9.1 8.5 - 10.5 mg/dL [facility] Est Glomerular Filtration Rate 109 >=60 mL/min/1. 73 m?? [facility] Comment: This patient's estimated GFR was [...] Pascal MD CHEMISTRY ORDERABLES Performing Organization Address City/[facility]/ZIP Co de Phone Number [facility] [place] [address] * POCT Glucose (09/14/2022 3:29 AM EDT) Glucose, POC 109 65 - 199 mg/dL [facility] Comment: Supplemental ranges: <140 mg/dL before meals <180 mg/dL all other times of the day Blood 09/14/2022 3:29 AM EDT 09/14/2022 3:29 AM EDT Chong Chao MD POINT OF CARE TEST O RDERABLES [facility] [place] [address] * POCT Glucose (09/13/2022 11:30 PM EDT) Glucose, POC 147 65 - 199 mg/dL [facility] Comment: Supplemental ranges: <140 mg/dL before meals <180 mg/dL all other times of the day Blood 09/13/2022 11:3 0 PM EDT 09/13/2022 11:30 PM EDT Chong Chao MD POINT OF CARE TEST O RDERABLES Performing Organization Address City/[facility]/ZIP Co de Phone Number [facility] [place] [address] * POCT Glucose (09/13/2022 7:24 PM EDT) Glucose, POC 149 65 - 199 mg/dL [facility] Comment: Supplemental ranges: <140 mg/dL before meals <180 mg/dL all other times of the day Blood 09/13/2022 7:24 PM EDT 09/13/2022 7:24 PM EDT Chong Chao MD POINT OF CARE TEST O RDERABLES [facility] [place] [address] * POCT Glucose (09/13/2022 3:40 PM EDT) Glucose, POC 126 65 - 199 mg/dL [facility] Comment: Supplemental ranges: <140 mg/dL before meals <180 mg/dL all other times of the day Blood 09/13/2022 3:40 PM EDT 09/13/2022 3:40 PM EDT Chong Chao MD POINT OF CARE TEST O GABRIELLA Performing Organization Address City/State/[facility] Co de Phone Number [facility] [place] [address] * (ABNORMAL) Basic Metabolic Panel (non-fasting) (09/13/2022 12:38 PM EDT) Glucose 115 65 - 199 mg/dL [facility] Comment:Diabetes: >=200 mg/d L plus symptoms Blood Urea Nitrogen 8 8 - 18 mg/dL [facility] Creatinine 0.50(L) 0.70 - 1.20 mg/dL [facility] Sodium 140 135 - 145 mmol/L [facility] Potassium 3.8 3.5 - 5.0 mmol/L [facility] Comment: Please note: ??Patients with WBC >100,000 may have falsely elevated Potassium levels. ??For accurate Potassium quantification in these patients send serum separator tube (gold top) for subsequent determinations. ??Contact the Clinical Chemistry Laboratory if there are any questions. Chloride 101 98 - 107 mmol/L [facility] Carbon Dioxide 26 22 - 31 mmol/L [facility] Anion Gap 13 5 - 15 mmol/L [facility] Calcium 9.1 8.5 - 10.5 mg/dL [facility] Est Glomerular Filtration Rate 106 >=60 mL/min/1. 73 m?? [facility] Comment: This patient's estimated GFR was [...] Pascal MD CHEMISTRY ORDERABLES Performing Organization Address City/[facility]/ZIP Co de Phone Number [facility] [place] [address] * POCT Glucose (09/13/2022 12:08 PM EDT) Glucose, POC 113 65 - 199 mg/dL [facility] Comment: Supplemental ranges: <140 mg/dL before meals <180 mg/dL all other times of the day Blood 09/13/2022 12:0 8 PM EDT 09/13/2022 12:08 PM EDT Chong Chao MD POINT OF CARE TEST O RDERABLES Performing Organization Address [facility] Co de Phone Number [facility] [place] [address] * POCT Glucose (09/13/2022 6:31 AM EDT) Glucose, POC 87 65 - 199 mg/dL [facility] Comment: Supplemental ranges: <140 mg/dL before meals <180 mg/dL all other times of the day Blood 09/13/2022 6:31 AM EDT 09/13/2022 6:31 AM EDT Chong Chao MD POINT OF CARE TEST O RDERAREYMUNDO [facility] [place] [address] * POCT Glucose (09/13/2022 3:16 AM EDT) Glucose, POC 90 65 - 199 mg/dL [facility] Comment: Supplemental ranges: <140 mg/dL before meals <180 mg/dL all other times of the day Blood 09/13/2022 3:16 AM EDT 09/13/2022 3:16 AM EDT Chong Chao MD POINT OF C[place] [address] * (ABNORMAL) Differential, Automated (09/13/2022 3:15 AM EDT) Neutrophil % 44.0 % [facility] Neutrophil Absolute 2.31 1.70 - 6.10 x10(3)/mc L [facility] Lymph % 39.0 % [facility] Lymphocytes Abs 2.0 0.9 - 3.2 x10(3)/mc L [facility] Monocyte % 10.7 % [facility] Monocyte Abs 0.6 0.3 - 0.9 x10(3)/mc L [facility] Eos % 3.8 % [facility] Eosinophils Abs 0.2 0.0 - 0.4 x10(3)/ L [facility] Basophil % 1.5 % [facility] Baso Absolute 0.1 0.0 - 0.1 x10(3)/mc L [facility] Immature Gran % 1.00 % [facility] Comment: Immature granulocytes(IG's)percentage and absolute count will include metamyelocytes, myelocytes, and promyelocytes. Blood smears from CBCs yielding IG's will be scanned manually for concordance. If this scan disagrees with the automated IG or if promyelocytes are noted, a manual differential will be performed. Immature Gran Absolute 0.05(H) 0.00 - 0.04 x10(3)/mc L [facility] Blood 09/13/2022 3:15 AM EDT 09/13/2022 3:27 AM EDT Narrative Resulting Agency Comment Spec In Lab Jigar Streeter MD HEMATOLOGY ORDERABLE S Performing Organization Address City/[facility]/ZIP Co de Phone Number [facility] [place] [address] * (ABNORMAL) Hemogram (09/13/2022 3:15 AM EDT) White Blood Cell 5.2 4.0 - 9.5 x10(3)/mc L [facility] Red Blood Cell 3.99(L) 4.00 - 5.21 x10(6)/mc L [facility] Hemoglobin 9.2(L) 11.7 - 15.5 g/dL [facility] Hematocrit 30.9(L) 35.7 - 45.8 % [facility] Mean Cell Volume 77.4(L) 82.6 - 94.4 fL [facility] Mean Cell Hemoglobin 23.1(L) 27.1 - 32.0 pg [facility] Mean Cell Hemoglobin Concentration 29.8(L) 31.7 - 35.0 g/dL [facility] Platelet 239 145 - 357 x10(3)/mc L [facility] RDW Standard Deviation 78.1(H) 37.0 - 46.0 fL [facility] RDW coefficient of variation 29.6(H) 11.5 - 14.1 % [facility] Mean Platelet Volume 9.8 7.6 - 12.9 fL [facility] NRBC% auto 0.0 % [facility] NRBC Absolute 0.000 0.000 - 0.000 x10(3)/ L [facility] Blood 09/13/2022 3:15 AM EDT 09/13/2022 3:27 AM EDT Narrative Resulting Agency Comment Spec In Lab Jigar Streeter MD HEMATOLOGY ORDERABLE S [facility] [place] [address] * Phosphorus (09/13/2022 3:15 AM EDT) Phosphorus 3.0 2.5 - 4.5 mg/dL [facility] Blood 09/13/2022 3:15 AM EDT 09/13/2022 3:27 AM EDT Narrative Resulting Agency Comment Spec In Lab Richard Pascal MD CHEMISTRY ORDERABLES [facility] [place] [address] * Magnesium (09/13/2022 3:15 AM EDT) Magnesium 0.78 0.69 - 1.07 mmol/L [facility] Blood 09/13/2022 3:15 AM EDT 09/13/2022 3:27 AM EDT Narrative Resulting Agency Comment Spec In Lab Richard Pascal MD CHEMISTRY ORDERABLES [facility] [place] [address] * (ABNORMAL) Basic Metabolic Panel (non-fasting) (09/13/2022 3:15 AM EDT) Glucose 87 65 - 199 mg/dL [facility] Comment:Diabetes: >=200 mg/d L plus symptoms Blood Urea Nitrogen 8 8 - 18 mg/dL [facility] Creatinine 0.52(L) 0.70 - 1.20 mg/dL [facility] Sodium 141 135 - 145 mmol/L [facility] Potassium 3.6 3.5 - 5.0 mmol/L [facility] Comment: Please note: ??Patients with WBC >100,000 may have falsely elevated Potassium levels. ??For accurate Potassium quantification in these patients send serum separator tube (gold top) for subsequent determinations. ??Contact the Clinical Chemistry Laboratory if there are any questions. Chloride 103 98 - 107 mmol/L [facility] Carbon Dioxide 29 22 - 31 mmol/L [facility] Anion Gap 9 5 - 15 mmol/L [facility] Calcium 8.8 8.5 - 10.5 mg/dL [facility] Est Glomerular Filtration Rate 105 >=60 mL/min/1. 73 m?? [facility] Comment: This patient's estimated GFR was [...] MD CHEMISTRY ORDERABL ES Performing Organization Address [facility]/ZIP Co de Phone Number [facility] [place] [address] * POCT Glucose (09/12/2022 11:29 PM EDT) Glucose, POC 105 65 - 199 mg/dL [facility] Comment: Supplemental ranges: <140 mg/dL before meals <180 mg/dL all other times of the day Blood 09/12/2022 11:2 9 PM EDT 09/12/2022 11:29 PM EDT Chong Chao MD POINT OF CARE TEST O RDERABLES Performing Organization Address [facility] Co de Phone Number [facility] [place] [address] * POCT Glucose (09/12/2022 7:24 PM EDT) Glucose, POC 121 65 - 199 mg/dL [facility] Comment: Supplemental ranges: <140 mg/dL before meals <180 mg/dL all other times of the day Blood 09/12/2022 7:24 PM EDT 09/12/2022 7:24 PM EDT Cohng Chao MD POINT OF CARE TEST O RDERABLES Performing Organization Address [facility] Co de Phone Number [facility] [place] [address] * (ABNORMAL) Basic Metabolic Panel (non-fasting) (09/12/2022 3:40 PM EDT) Glucose 103 65 - 199 mg/dL [facility] Comment:Diabetes: >=200 mg/d L plus symptoms Blood Urea Nitrogen 7(L) 8 - 18 mg/dL [facility] Creatinine 0.53(L) 0.70 - 1.20 mg/dL [facility] Sodium 140 135 - 145 mmol/L [facility] Potassium 4.0 3.5 - 5.0 mmol/L [facility] Comment: Please note: ??Patients with WBC >100,000 may have falsely elevated Potassium levels. ??For accurate Potassium quantification in these patients send serum separator tube (gold top) for subsequent determinations. ??Contact the Clinical Chemistry Laboratory if there are any questions. Chloride 102 98 - 107 mmol/L [facility] Carbon Dioxide 24 22 - 31 mmol/L [facility] Anion Gap 14 5 - 15 mmol/L [facility] Calcium 9.4 8.5 - 10.5 mg/dL [facility] Est Glomerular Filtration Rate 105 >=60 mL/min/1. 73 m?? [facility] Comment: This patient's estimated GFR was [...] In Lab Jigar Streeter MD CHEMISTRY ORDERABLES [facility] [place] [address] * Magnesium (09/12/2022 3:40 PM EDT) Magnesium 0.93 0.69 - 1.07 mmol/L [facility] Blood 09/12/2022 3:40 PM EDT 09/12/2022 3:51 PM EDT Narrative Resulting Agency Comment Spec In Lab Richard Pascal MD CHEMISTRY ORDERABLES [facility] [place] [address] * POCT Glucose (09/12/2022 3:36 PM EDT) Glucose, POC 109 65 - 199 mg/dL [facility] Comment: Supplemental ranges: <140 mg/dL before meals <180 mg/dL all other times of the day Blood 09/12/2022 3:36 PM EDT 09/12/2022 3:36 PM EDT Chong Chao MD POINT OF CARE TEST O RDERABLES Performing Organization Address [facility] Co de Phone Number [facility] [place] [address] * POCT Glucose (09/12/2022 11:37 AM EDT) Glucose, POC 84 65 - 199 mg/dL [facility] Comment: Supplemental ranges: <140 mg/dL before meals <180 mg/dL all other times of the day Blood 09/12/2022 11:3 7 AM EDT 09/12/2022 11:37 AM EDT Chong Chao MD POINT OF CARE TEST O RDERABLES Performing Organization Address [facility]/ZIP Co de Phone Number [facility] [place] [address] * POCT Glucose (09/12/2022 6:33 AM EDT) Glucose, POC 98 65 - 199 mg/dL [facility] Comment: Supplemental ranges: <140 mg/dL before meals <180 mg/dL all other times of the day Blood 09/12/2022 6:33 AM EDT 09/12/2022 6:33 AM EDT Molina Flores MD POINT OF CARE TEST ORDERABLES Performing Organization Address City/[facility]/ZIP Co de Phone Number [facility] [place] [address] * (ABNORMAL) Differential, Automated (09/12/2022 3:25 AM EDT) Pathologist [facility] Neutrophil % 79.2 % [facility] Neutrophil Absolute 4.22 1.70 - 6.10 x10(3)/mc L [facility] Lymph % 16.4 % [facility] Lymphocytes Abs 0.9 0.9 - 3.2 x10(3)/ L [facility] Monocyte % 3.2 % [facility] Monocyte Abs 0.2(L) 0.3 - 0.9 x10(3)/ L [facility] Eos % 0.0 % [facility] Eosinophils Abs 0.0 0.0 - 0.4 x10(3)/[facility] Basophil % 0.6 % [facility] Baso Absolute 0.0 0.0 - 0.1 x10(3)/[facility] Immature Gran % 0.60 % [facility] Comment: Immature granulocytes(IG's)percentage and absolute count will include metamyelocytes, myelocytes, and promyelocytes. Blood smears from CBCs yielding IG's will be scanned manually for concordance. If this scan disagrees with the automated IG or if promyelocytes are noted, a manual differential will be performed. Immature Gran Absolute 0.03 0.00 - 0.04 x10(3)/ L [facility] Blood 09/12/2022 3:25 AM EDT 09/12/2022 3:33 AM EDT Narrative Resulting Agency Comment Spec In Lab Jigar Streeetr MD [place] [address] * (ABNORMAL) Hemogram (09/12/2022 3:25 AM EDT) [facility] White Blood Cell 5.3 4.0 - 9.5 x10(3)/ L [facility] Red Blood Cell 4.23 4.00 - 5.21 x10(6)/mc L [facility] Comment:Dimorphic RBC popula tion. Hemoglobin 9.6(L) 11.7 - 15.5 g/dL [facility] Hematocrit 32.4(L) 35.7 - 45.8 % [facility] Mean Cell Volume 76.6(L) 82.6 - 94.4 fL [facility] Mean Cell Hemoglobin 22.7(L) 27.1 - 32.0 pg [facility] Mean Cell Hemoglobin Concentration 29.6(L) 31.7 - 35.0 g/dL [facility] Platelet 241 145 - 357 x10(3)/mc L [facility] RDW Standard Deviation 78.0(H) 37.0 - 46.0 fL [facility] RDW coefficient of variation 29.6(H) 11.5 - 14.1 % [facility] Mean Platelet Volume 9.9 7.6 - 12.9 fL [facility] NRBC% auto 0.0 % [facility] NRBC Absolute 0.000 0.000 - 0.000 x10(3)/mc L [facility] Blood 09/12/2022 3:25 AM EDT 09/12/2022 3:33 AM EDT Narrative Resulting Agency Comment Spec In Lab Jigar Streeter MD HEMATOLOGY ORDERABLE S [facility] [place] [address] * Phosphorus (09/12/2022 3:25 AM EDT) Phosphorus 3.6 2.5 - 4.5 mg/dL [facility] Blood 09/12/2022 3:25 AM EDT 09/12/2022 3:33 AM EDT Narrative Resulting Agency Comment Spec In Lab Richard Pascal MD CHEMISTRY ORDERABLES Performing Organization Address City/[facility]/ZIP Co de Phone Number [facility] [place] [address] * (ABNORMAL) Basic Metabolic Panel (non-fasting) (09/12/2022 3:25 AM EDT) Glucose 123 65 - 199 mg/dL [facility] Comment:Diabetes: >=200 mg/d L plus symptoms Blood Urea Nitrogen 8 8 - 18 mg/dL [facility] Creatinine 0.49(L) 0.70 - 1.20 mg/dL [facility] Sodium 139 135 - 145 mmol/L [facility] Potassium 4.5 3.5 - 5.0 mmol/L [facility] Comment: result [id number] Please note: ??Patients with WBC >100,000 may have falsely elevated Potassium levels. ??For accurate Potassium quantification in these patients send serum separator tube (gold top) for subsequent determinations. ??Contact the Clinical Chemistry Laboratory if there are any questions. Chloride 104 98 - 107 mmol/L [facility] Carbon Dioxide 26 22 - 31 mmol/L [facility] Anion Gap 9 5 - 15 mmol/L [facility] Calcium 9.2 8.5 - 10.5 mg/dL [facility] Est Glomerular Filtration Rate 106 >=60 mL/min/1. 73 m?? [facility] Comment: This patient's estimated GFR was [...] In Lab Richard Pascal MD CHEMISTRY ORDERABLES [facility] [place] [address] * Magnesium (09/12/2022 3:25 AM EDT) Magnesium 0.76 0.69 - 1.07 mmol/L [facility] Blood 09/12/2022 3:25 AM EDT 09/12/2022 3:33 AM EDT Narrative Resulting Agency Comment Spec In Lab Richard Pascal MD CHEMISTRY ORDERABLES Performing Organization Address City/[facility] Co de Phone Number [facility] [place] [address] * POCT Glucose (09/12/2022 3:07 AM EDT) Glucose, POC 124 65 - 199 mg/dL [facility] Comment: Supplemental ranges: <140 mg/dL before meals <180 mg/dL all other times of the day Blood 09/12/2022 3:07 AM EDT 09/12/2022 3:07 AM EDT Molina Flores MD POINT OF CARE TEST ORDERABLES Performing Organization Address City/[facility] Co de Phone Number [facility] [place] [address] * POCT Glucose (09/11/2022 11:30 PM EDT) Glucose, POC 175 65 - 199 mg/dL [facility] Comment: Supplemental ranges: <140 mg/dL before meals <180 mg/dL all other times of the day Blood 09/11/2022 11:3 0 PM EDT 09/11/2022 11:30 PM EDT Molina Flores MD POINT OF CARE TEST ORDERABLES Performing Organization Address City/[facility]/ZIP Co de Phone Number [facility] [place] [address] * POCT Glucose (09/11/2022 7:59 PM EDT) Glucose, POC 139 65 - 199 mg/dL [facility] Comment: Supplemental ranges: <140 mg/dL before meals <180 mg/dL all other times of the day Blood 09/11/2022 7:59 PM EDT 09/11/2022 7:59 PM EDT Molina Flores MD POINT OF CARE TEST ORDERABLES [facility] [place] [address] * POCT Glucose (09/11/2022 5:25 PM EDT) Glucose, POC 156 65 - 199 mg/dL [facility] Comment: Supplemental ranges: <140 mg/dL before meals <180 mg/dL all other times of the day Blood 09/11/2022 5:25 PM EDT 09/11/2022 5:25 PM EDT Molina Flores MD POINT OF CARE TEST ORDERABLES Performing Organization Address [facility] Co de Phone Number [facility] [place] [address] * IR G-Tube Placement (09/11/2022 5:19 PM [...] barrier technique was used throughout. ??A 4 Malaysian glide catheter??was placed??as a??nasoenteric tube??under fluoroscopy with [...] Meredith performed this procedure. Molina Flores MD [facility] [place]LES * POCT Glucose (09/11/2022 11:35 AM EDT) [facility] Signature Glucose, POC 154 65 - 199 mg/dL [facility] Comment: Supplemental ranges: <140 mg/dL before meals <180 mg/dL all other times of the day Blood 09/11/2022 11:3 5 AM EDT 09/11/2022 11:35 AM EDT Molina Flores MD POINT OF CARE TEST ORDERABLES [facility] [place] [address] * POCT Glucose (09/11/2022 6:47 AM EDT) Glucose, POC 147 65 - 199 mg/dL [facility] Comment: Supplemental ranges: <140 mg/dL before meals <180 mg/dL all other times of the day Blood 09/11/2022 6:47 AM EDT 09/11/2022 6:47 AM EDT Molina Flores MD POINT OF CARE TEST ORDERABLES [facility] [place] [address] * Differential, Automated (09/11/2022 4:05 AM EDT) [facility] Neutrophil % 53.0 % [facility] Neutrophil Absolute 2.39 1.70 - 6.10 x10(3)/[facility] Lymph % 26.4 % [facility] Lymphocytes Abs 1.2 0.9 - 3.2 x10(3)/[facility] Monocyte % 12.4 % [facility] Monocyte Abs 0.6 0.3 - 0.9 x10(3)/[facility] Eos % 6.9 % [facility] Eosinophils Abs 0.3 0.0 - 0.4 x10(3)/[facility] Basophil % 0.9 % [facility] Baso Absolute 0.0 0.0 - 0.1 x10(3)/[facility] Immature Gran % 0.40 % [facility] Comment: Immature granulocytes(IG's)percentage and absolute count will include metamyelocytes, myelocytes, and promyelocytes. Blood smears from CBCs yielding IG's will be scanned manually for concordance. If this scan disagrees with the automated IG or if promyelocytes are noted, a manual differential will be performed. Immature Gran Absolute 0.02 0.00 - 0.04 x10(3)/[facility] Blood 09/11/2022 4:05 AM EDT 09/11/2022 4:12 AM EDT Narrative Resulting Agency Comment Spec In Lab Jigar Streeter MD HEMATOLOGY ORDERABLE S [facility] [place] [address] * (ABNORMAL) Hemogram (09/11/2022 4:05 AM EDT) White Blood Cell 4.5 4.0 - 9.5 x10(3)/ L [facility] Red Blood Cell 3.93(L) 4.00 - 5.21 x10(6)/mc L [facility] Hemoglobin 9.0(L) 11.7 - 15.5 g/dL [facility] Hematocrit 30.2(L) 35.7 - 45.8 % [facility] Mean Cell Volume 76.8(L) 82.6 - 94.4 fL [facility] Mean Cell Hemoglobin 22.9(L) 27.1 - 32.0 pg [facility] Mean Cell Hemoglobin Concentration 29.8(L) 31.7 - 35.0 g/dL [facility] Platelet 219 145 - 357 x10(3)/mc L [facility] RDW Standard Deviation 78.3(H) 37.0 - 46.0 fL [facility] RDW coefficient of variation 30.1(H) 11.5 - 14.1 % [facility] Mean Platelet Volume 9.8 7.6 - 12.9 fL [facility] NRBC% auto 0.0 % [facility] NRBC Absolute 0.000 0.000 - 0.000 x10(3)/ L [facility] Blood 09/11/2022 4:05 AM EDT 09/11/2022 4:12 AM EDT Narrative Resulting Agency Comment Spec In Lab Jigar Streeter MD HEMATOLOGY ORDERABLE S [facility] [place] [address] * Phosphorus (09/11/2022 4:05 AM EDT) Phosphorus 2.8 2.5 - 4.5 mg/dL [facility] Blood 09/11/2022 4:05 AM EDT 09/11/2022 4:12 AM EDT Narrative Resulting Agency Comment Spec In Lab Richard Pascal MD CHEMISTRY ORDERABLES [facility] [place] [address] * (ABNORMAL) Basic Metabolic Panel (non-fasting) (09/11/2022 4:05 AM EDT) Glucose 195 65 - 199 mg/dL [facility] Comment:Diabetes: >=200 mg/d L plus symptoms Blood Urea Nitrogen 6(L) 8 - 18 mg/dL [facility] Creatinine 0.44(L) 0.70 - 1.20 mg/dL [facility] Sodium 143 135 - 145 mmol/L [facility] Potassium 3.4(L) 3.5 - 5.0 mmol/L [facility] Comment: Please note: ??Patients with WBC >100,000 may have falsely elevated Potassium levels. ??For accurate Potassium quantification in these patients send serum separator tube (gold top) for subsequent determinations. ??Contact the Clinical Chemistry Laboratory if there are any questions. Chloride 107 98 - 107 mmol/L [facility] Carbon Dioxide 28 22 - 31 mmol/L [facility] Anion Gap 8 5 - 15 mmol/L [facility] Calcium 8.9 8.5 - 10.5 mg/dL [facility] Est Glomerular Filtration Rate 109 >=60 mL/min/1. 73 m?? [facility] Comment: This patient's estimated GFR was [...] In Lab Richard Pascal MD CHEMISTRY ORDERABLES [facility] [place] [address] * POCT Glucose (09/11/2022 3:56 AM EDT) Glucose, POC 121 65 - 199 mg/dL [facility] Comment: Supplemental ranges: <140 mg/dL before meals <180 mg/dL all other times of the day Blood 09/11/2022 3:56 AM EDT 09/11/2022 3:56 AM EDT Molina Flores MD POINT OF CARE TEST ORDERABLES Performing Organization Address City/[facility]/ZIP Co de Phone Number [facility] [place] [address] * POCT Glucose (09/11/2022 12:03 AM EDT) Glucose, POC 174 65 - 199 mg/dL [facility] Comment: Supplemental ranges: <140 mg/dL before meals <180 mg/dL all other times of the day Blood 09/11/2022 12:0 3 AM EDT 09/11/2022 12:03 AM EDT Molina Flores MD POINT OF CARE TEST ORDERABLES [facility] [place] [address] * POCT Glucose (09/10/2022 7:45 PM EDT) Glucose, POC 142 65 - 199 mg/dL [facility] Comment: Supplemental ranges: <140 mg/dL before meals <180 mg/dL all other times of the day Blood 09/10/2022 7:45 PM EDT 09/10/2022 7:45 PM EDT Molina Flores MD POINT OF CARE TEST ORDERABLES [facility] [place] [address] * POCT Glucose (09/10/2022 4:21 PM EDT) Glucose, POC 141 65 - 199 mg/dL [facility] Comment: Supplemental ranges: <140 mg/dL before meals <180 mg/dL all other times of the day Blood 09/10/2022 4:21 PM EDT 09/10/2022 4:21 PM EDT Molina Flores MD POINT OF CARE TEST ORDERABLES [facility] [place] [address] * POCT Glucose (09/10/2022 3:23 PM EDT) Glucose, POC 188 65 - 199 mg/dL [facility] Comment: Supplemental ranges: <140 mg/dL before meals <180 mg/dL all other times of the day Blood 09/10/2022 3:23 PM EDT 09/10/2022 3:23 PM EDT Molina Flores MD POINT OF CARE TEST ORDERABLES [facility] [place] [address] * POCT Glucose (09/10/2022 2:07 PM EDT) Glucose, POC 166 65 - 199 mg/dL [facility] Comment: Supplemental ranges: <140 mg/dL before meals <180 mg/dL all other times of the day Blood 09/10/2022 2:07 PM EDT 09/10/2022 2:07 PM EDT Molina Flores MD POINT OF CARE TEST ORDERABLES [facility] [place] [address] * POCT Glucose (09/10/2022 11:59 AM EDT) Glucose, POC 165 65 - 199 mg/dL [facility] Comment: Supplemental ranges: <140 mg/dL before meals <180 mg/dL all other times of the day Blood 09/10/2022 11:5 9 AM EDT 09/10/2022 11:59 AM EDT Molina Flores MD POINT OF CARE TEST ORDERABLES Performing Organization Address City/State/[facility] Co de Phone Number [facility] [place] [address] * (ABNORMAL) Differential, Automated (09/10/2022 9:20 AM EDT) [facility] Neutrophil % 59.6 % [facility] Neutrophil Absolute 3.39 1.70 - 6.10 x10(3)/mc L [facility] Lymph % 21.4 % [facility] Lymphocytes Abs 1.2 0.9 - 3.2 x10(3)/mc L [facility] Monocyte % 11.4 % [facility] Monocyte Abs 0.6 0.3 - 0.9 x10(3)/mc L [facility] Eos % 6.2 % [facility] Eosinophils Abs 0.4 0.0 - 0.4 x10(3)/mc L [facility] Basophil % 0.5 % [facility] Baso Absolute 0.0 0.0 - 0.1 x10(3)/mc L [facility] Immature Gran % 0.90 % [facility] Comment: Immature granulocytes(IG's)percentage and absolute count will include metamyelocytes, myelocytes, and promyelocytes. Blood smears from CBCs yielding IG's will be scanned manually for concordance. If this scan disagrees with the automated IG or if promyelocytes are noted, a manual differential will be performed. Immature Gran Absolute 0.05(H) 0.00 - 0.04 x10(3)/mc L [facility] Blood 09/10/2022 9:20 AM EDT 09/10/2022 10:10 AM EDT Narrative Resulting Agency Comment Spec In Lab Chau Keith MD HEMATOLOGY ORDERABLE S [facility] [place] [address] * (ABNORMAL) Hemogram (09/10/2022 9:20 AM EDT) White Blood Cell 5.7 4.0 - 9.5 x10(3)/ L [facility] Red Blood Cell 4.06 4.00 - 5.21 x10(6)/ L [facility] Comment:Dimorphic RBC popula tion. Hemoglobin 9.2(L) 11.7 - 15.5 g/dL [facility] Hematocrit 31.4(L) 35.7 - 45.8 % [facility] Mean Cell Volume 77.3(L) 82.6 - 94.4 fL [facility] Mean Cell Hemoglobin 22.7(L) 27.1 - 32.0 pg [facility] Mean Cell Hemoglobin Concentration 29.3(L) 31.7 - 35.0 g/dL [facility] Platelet 229 145 - 357 x10(3)/mc L [facility] RDW Standard Deviation Not Measured 37.0 - 46.0 fL [facility] RDW coefficient of variation Not Measured 11.5 - 14.1 % [facility] Mean Platelet Volume 10.5 7.6 - 12.9 fL [facility] NRBC% auto 0.0 % [facility] NRBC Absolute 0.000 0.000 - 0.000 x10(3)/ L [facility] Blood 09/10/2022 9:20 AM EDT 09/10/2022 10:10 AM EDT Narrative Resulting Agency Comment Spec In Lab Chau Keith MD HEMATOLOGY ORDERABLE S [facility] [place] [address] * POCT Glucose (09/10/2022 8:07 AM EDT) Glucose, POC 135 65 - 199 mg/dL [facility] Comment: Supplemental ranges: <140 mg/dL before meals <180 mg/dL all other times of the day Blood 09/10/2022 8:07 AM EDT 09/10/2022 8:07 AM EDT Molina Flores MD POINT OF CARE TEST ORDERABLES Performing Organization Address [facility] Co de Phone Number [facility] [place] [address] * POCT Glucose (09/10/2022 6:57 AM EDT) Glucose, POC 165 65 - 199 mg/dL [facility] Comment: Supplemental ranges: <140 mg/dL before meals <180 mg/dL all other times of the day Blood 09/10/2022 6:57 AM EDT 09/10/2022 6:57 AM EDT Molina Flores MD POINT OF CARE TEST ORDERABLES Performing Organization Address [facility] de Phone Number [facility] [place] [address] * Phosphorus (09/10/2022 6:00 AM EDT) Phosphorus 3.3 2.5 - 4.5 mg/dL [facility] Blood 09/10/2022 6:00 AM EDT 09/10/2022 6:13 AM EDT Narrative Resulting Agency Comment Spec In Lab Richard Pascal MD CHEMISTRY ORDERABLES Performing Organization Address [facility] Co de Phone Number [facility] [place] [address] * (ABNORMAL) Magnesium (09/10/2022 6:00 AM EDT) Magnesium 0.67(L) 0.69 - 1.07 mmol/L [facility] Blood 09/10/2022 6:00 AM EDT 09/10/2022 6:13 AM EDT Narrative Resulting Agency Comment Spec In Lab Richard Pascal MD CHEMISTRY ORDERABLES Performing Organization Address [facility] Co de Phone Number [facility] [place] [address] * (ABNORMAL) Basic Metabolic Panel (non-fasting) (09/10/2022 6:00 AM EDT) Glucose 158 65 - 199 mg/dL [facility] Comment:Diabetes: >=200 mg/d L plus symptoms Blood Urea Nitrogen 11 8 - 18 mg/dL [facility] Creatinine 0.48(L) 0.70 - 1.20 mg/dL [facility] Sodium 140 135 - 145 mmol/L [facility] Potassium 3.7 3.5 - 5.0 mmol/L [facility] Comment: Please note: ??Patients with WBC >100,000 may have falsely elevated Potassium levels. ??For accurate Potassium quantification in these patients send serum separator tube (gold top) for subsequent determinations. ??Contact the Clinical Chemistry Laboratory if there are any questions. Chloride 105 98 - 107 mmol/L [facility] Carbon Dioxide 27 22 - 31 mmol/L [facility] Anion Gap 8 5 - 15 mmol/L [facility] Calcium 9.1 8.5 - 10.5 mg/dL [facility] Est Glomerular Filtration Rate 107 >=60 mL/min/1. 73 m?? [facility] Comment: This patient's estimated GFR was [...] CHEMISTRY ORDERABLES Performing Organization Address [facility] Co de Phone Number [facility] [place] [address] * POCT Glucose (09/10/2022 3:40 AM EDT) Glucose, POC 160 65 - 199 mg/dL [facility] Comment: Supplemental ranges: <140 mg/dL before meals <180 mg/dL all other times of the day Blood 09/10/2022 3:40 AM EDT 09/10/2022 3:40 AM EDT Molina Flores MD POINT OF CARE TEST ORDERABLES Performing Organization Address City/[facility] Co de Phone Number [facility] [place] [address] * POCT Glucose (09/10/2022 1:44 AM EDT) Glucose, POC 145 65 - 199 mg/dL [facility] Comment: Supplemental ranges: <140 mg/dL before meals <180 mg/dL all other times of the day Blood 09/10/2022 1:44 AM EDT 09/10/2022 1:44 AM EDT Molina Flores MD POINT OF CARE TEST ORDERABLES Performing Organization Address [facility] de Phone Number [facility] [place] [address] * XR Abdomen 1 view (Generic) (09/10/2022 1:04 AM EDT) Anatomical Region Laterality Modality Abdomen N/A Digital Radiogra phy Impressions 09/10/2022 1:16 AM EDT bbhoff with tip at the level of the [...] who have questions please contact the health patient care technician instructor that requested your imaging first. ? Narrative [...] patients who have questions please contactthe health patient care technician instructor that requested your imaging first. Molina Flores MD IMG DX ORDERABLES * POCT Glucose (09/09/2022 8:09 PM EDT) Glucose, POC 153 65 - 199 mg/dL [facility] Comment: Supplemental ranges: <140 mg/dL before meals <180 mg/dL all other times of the day Blood 09/09/2022 8:09 PM EDT 09/09/2022 8:09 PM EDT Molina Flores MD POINT OF CARE TEST ORDERABLES [facility] [place] [address] * POCT Glucose (09/09/2022 5:20 PM EDT) Glucose, POC 146 65 - 199 mg/dL [facility] Comment: Supplemental ranges: <140 mg/dL before meals <180 mg/dL all other times of the day Blood 09/09/2022 5:20 PM EDT 09/09/2022 5:20 PM EDT Molina Flores MD POINT OF CARE TEST ORDERABLES [facility] [place] [address] * POCT Glucose (09/09/2022 1:18 PM EDT) Glucose, POC 138 65 - 199 mg/dL [facility] Comment: Supplemental ranges: <140 mg/dL before meals <180 mg/dL all other times of the day Blood 09/09/2022 1:18 PM EDT 09/09/2022 1:18 PM EDT Molina Flores MD POINT OF CARE TEST ORDERABLES [facility] [place] [address] * POCT Glucose (09/09/2022 10:10 AM EDT) Glucose, POC 167 65 - 199 mg/dL [facility] Comment: Supplemental ranges: <140 mg/dL before meals <180 mg/dL all other times of the day Blood 09/09/2022 10:1 0 AM EDT 09/09/2022 10:10 AM EDT Molina Flores MD POINT OF CARE TEST ORDERABLES Performing Organization Address City/[facility] Co de Phone Number [facility] [place] [address] * POCT Glucose (09/09/2022 6:41 AM EDT) Glucose, POC 150 65 - 199 mg/dL [facility] Comment: Supplemental ranges: <140 mg/dL before meals <180 mg/dL all other times of the day Blood 09/09/2022 6:41 AM EDT 09/09/2022 6:41 AM EDT Molina Flores MD POINT OF CARE TEST ORDERABLES Performing Organization Address City/[facility] Co de Phone Number [facility] [place] [address] * (ABNORMAL) Differential, Automated (09/09/2022 4:00 AM EDT) Neutrophil % 49.9 % [facility] Neutrophil Absolute 3.43 1.70 - 6.10 x10(3)/mc L [facility] Lymph % 27.9 % [facility] Lymphocytes Abs 1.9 0.9 - 3.2 x10(3)/mc L [facility] Monocyte % 10.2 % [facility] Monocyte Abs 0.7 0.3 - 0.9 x10(3)/mc L [facility] Eos % 10.0 % [facility] Eosinophils Abs 0.7(H) 0.0 - 0.4 x10(3)/ L [facility] Basophil % 1.0 % [facility] Baso Absolute 0.1 0.0 - 0.1 x10(3)/mc L [facility] Immature Gran % 1.00 % [facility] Comment: Immature granulocytes(IG's)percentage and absolute count will include metamyelocytes, myelocytes, and promyelocytes. Blood smears from CBCs yielding IG's will be scanned manually for concordance. If this scan disagrees with the automated IG or if promyelocytes are noted, a manual differential will be performed. Immature Gran Absolute 0.07(H) 0.00 - 0.04 x10(3)/mc L [facility] Blood 09/09/2022 4:00 AM EDT 09/09/2022 4:18 AM EDT Narrative Resulting Agency Comment Spec In Lab Jigar Streeter MD HEMATOLOGY ORDERABLE S [facility] [place] [address] * (ABNORMAL) Hemogram (09/09/2022 4:00 AM EDT) White Blood Cell 6.9 4.0 - 9.5 x10(3)/[facility] Red Blood Cell 4.37 4.00 - 5.21 x10(6)/[facility] Comment:Dimorphic RBC popula tion. Hemoglobin 9.8(L) 11.7 - 15.5 g/dL [facility] Hematocrit 33.4(L) 35.7 - 45.8 % [facility] Mean Cell Volume 76.4(L) 82.6 - 94.4 fL [facility] Mean Cell Hemoglobin 22.4(L) 27.1 - 32.0 pg [facility] Mean Cell Hemoglobin Concentration 29.3(L) 31.7 - 35.0 g/dL [facility] Platelet 264 145 - 357 x10(3)/[facility] RDW Standard Deviation 79.7(H) 37.0 - 46.0 fL [facility] RDW coefficient of variation 30.7(H) 11.5 - 14.1 % [facility] Mean Platelet Volume 10.0 7.6 - 12.9 fL [facility] NRBC% auto 0.0 % [facility] NRBC Absolute 0.000 0.000 - 0.000 x10(3)/ L [facility] Blood 09/09/2022 4:00 AM EDT 09/09/2022 4:18 AM EDT Narrative Resulting Agency Comment Spec In Lab Jigar Streeter MD HEMATOLOGY ORDERABLE S [facility] [place] [address] * (ABNORMAL) Basic Metabolic Panel (non-fasting) (09/09/2022 4:00 AM EDT) Glucose 139 65 - 199 mg/dL [facility] Comment:Diabetes: >=200 mg/d L plus symptoms Blood Urea Nitrogen 24(H) 8 - 18 mg/dL [facility] Creatinine 0.56(L) 0.70 - 1.20 mg/dL [facility] Sodium 140 135 - 145 mmol/L [facility] Potassium 4.3 3.5 - 5.0 mmol/L [facility] Comment: Please note: ??Patients with WBC >100,000 may have falsely elevated Potassium levels. ??For accurate Potassium quantification in these patients send serum separator tube (gold top) for subsequent determinations. ??Contact the Clinical Chemistry Laboratory if there are any questions. Chloride 102 98 - 107 mmol/L [facility] Carbon Dioxide 28 22 - 31 mmol/L [facility] Anion Gap 10 5 - 15 mmol/L [facility] Calcium 10.1 8.5 - 10.5 mg/dL [facility] Est Glomerular Filtration Rate 103 >=60 mL/min/1. 73 m?? [facility] Comment: This patient's estimated GFR was [...] Pascal MD CHEMISTRY ORDERABLES Performing Organization Address City/[facility]/ZIP Co de Phone Number [facility] [place] [address] * Phosphorus (09/09/2022 4:00 AM EDT) Phosphorus 4.2 2.5 - 4.5 mg/dL [facility] Blood 09/09/2022 4:00 AM EDT 09/09/2022 4:18 AM EDT Narrative Resulting Agency Comment Spec In Lab Richard Pascal MD CHEMISTRY ORDERABLES Performing Organization Address [facility] Co de Phone Number [facility] [place] [address] * Magnesium (09/09/2022 4:00 AM EDT) Magnesium 0.86 0.69 - 1.07 mmol/L [facility] Blood 09/09/2022 4:00 AM EDT 09/09/2022 4:18 AM EDT Narrative Resulting Agency Comment Spec In Lab Richard Pascal MD CHEMISTRY ORDERABLES Performing Organization Address [facility] Co de Phone Number [facility] [place] [address] * POCT Glucose (09/09/2022 3:49 AM EDT) Glucose, POC 140 65 - 199 mg/dL [facility] Comment: Supplemental ranges: <140 mg/dL before meals <180 mg/dL all other times of the day Blood 09/09/2022 3:49 AM EDT 09/09/2022 3:49 AM EDT Molina Flores MD POINT OF CARE TEST ORDERABLES Performing Organization Address City/[facility]/ZIP Co de Phone Number [facility] [place] [address] * POCT Glucose (09/08/2022 11:53 PM EDT) Glucose, POC 116 65 - 199 mg/dL [facility] Comment: Supplemental ranges: <140 mg/dL before meals <180 mg/dL all other times of the day Blood 09/08/2022 11:5 3 PM EDT 09/08/2022 11:53 PM EDT Molina Flores MD POINT OF CARE TEST ORDERABLES [facility] [place] [address] * POCT Glucose (09/08/2022 7:54 PM EDT) Glucose, POC 182 65 - 199 mg/dL [facility] Comment: Supplemental ranges: <140 mg/dL before meals <180 mg/dL all other times of the day Blood 09/08/2022 7:54 PM EDT 09/08/2022 7:54 PM EDT Molina Flores MD POINT OF CARE TEST ORDERABLES [facility] [place] [address] * POCT Glucose (09/08/2022 4:57 PM EDT) Glucose, POC 119 65 - 199 mg/dL [facility] Comment: Supplemental ranges: <140 mg/dL before meals <180 mg/dL all other times of the day Blood 09/08/2022 4:57 PM EDT 09/08/2022 4:57 PM EDT Molina Flores MD POINT OF CARE TEST ORDERABLES [facility] [place] [address] * POCT Glucose (09/08/2022 6:53 AM EDT) Glucose, POC 134 65 - 199 mg/dL [facility] Comment: Supplemental ranges: <140 mg/dL before meals <180 mg/dL all other times of the day Blood 09/08/2022 6:53 AM EDT 09/08/2022 6:53 AM EDT Richard Pascal MD POINT OF CARE TEST O RDERABLES Performing Organization Address [facility] Co de Phone Number [facility] [place] [address] * POCT Glucose (09/08/2022 3:57 AM EDT) Glucose, POC 165 65 - 199 mg/dL [facility] Comment: Supplemental ranges: <140 mg/dL before meals <180 mg/dL all other times of the day Blood 09/08/2022 3:57 AM EDT 09/08/2022 3:57 AM EDT Richard Pascal MD POINT OF CARE TEST O RDERABLES Performing Organization Address [facility] Co de Phone Number [facility] [place] [address] * (ABNORMAL) Differential, Automated (09/08/2022 2:00 AM EDT) [facility] Neutrophil % 49.5 % [facility] Neutrophil Absolute 3.42 1.70 - 6.10 x10(3)/mc L [facility] Lymph % 28.0 % [facility] Lymphocytes Abs 1.9 0.9 - 3.2 x10(3)/mc L [facility] Monocyte % 12.2 % [facility] Monocyte Abs 0.8 0.3 - 0.9 x10(3)/mc L [facility] Eos % 8.7 % [facility] Eosinophils Abs 0.6(H) 0.0 - 0.4 x10(3)/mc L [facility] Basophil % 0.9 % [facility] Baso Absolute 0.1 0.0 - 0.1 x10(3)/mc L [facility] Immature Gran % 0.70 % [facility] Comment: Immature granulocytes(IG's)percentage and absolute count will include metamyelocytes, myelocytes, and promyelocytes. Blood smears from CBCs yielding IG's will be scanned manually for concordance. If this scan disagrees with the automated IG or if promyelocytes are noted, a manual differential will be performed. Immature Gran Absolute 0.05(H) 0.00 - 0.04 x10(3)/mc L [facility] Blood 09/08/2022 2:00 AM EDT 09/08/2022 2:13 AM EDT Narrative Resulting Agency Comment Spec In Lab Jigar Streeter MD HEMATOLOGY ORDERABLE S [facility] [place] [address] * (ABNORMAL) Hemogram (09/08/2022 2:00 AM EDT) White Blood Cell 6.9 4.0 - 9.5 x10(3)/[facility] Red Blood Cell 4.34 4.00 - 5.21 x10(6)/[facility] Comment:Dimorphic RBC popula tion. Hemoglobin 9.8(L) 11.7 - 15.5 g/dL [facility] Hematocrit 32.6(L) 35.7 - 45.8 % [facility] Mean Cell Volume 75.1(L) 82.6 - 94.4 fL [facility] Mean Cell Hemoglobin 22.6(L) 27.1 - 32.0 pg [facility] Mean Cell Hemoglobin Concentration 30.1(L) 31.7 - 35.0 g/dL [facility] Platelet 300 145 - 357 x10(3)/[facility] RDW Standard Deviation Not Measured 37.0 - 46.0 fL [facility] RDW coefficient of variation Not Measured 11.5 - 14.1 % [facility] Mean Platelet Volume 9.5 7.6 - 12.9 fL [facility] NRBC% auto 0.0 % [facility] NRBC Absolute 0.000 0.000 - 0.000 x10(3)/ L [facility] Blood 09/08/2022 2:00 AM EDT 09/08/2022 2:13 AM EDT Narrative Resulting Agency Comment Spec In Lab Jigar Streeter MD HEMATOLOGY ORDERABLE S [facility] [address] * (ABNORMAL) Basic Metabolic Panel (non-fasting) (09/08/2022 2:00 AM EDT) Glucose 142 65 - 199 mg/dL [facility] Comment:Diabetes: >=200 mg/d L plus symptoms Blood Urea Nitrogen 25(H) 8 - 18 mg/dL [facility] Creatinine 0.52(L) 0.70 - 1.20 mg/dL [facility] Sodium 142 135 - 145 mmol/L [facility] Potassium 4.6 3.5 - 5.0 mmol/L [facility] Comment: Please note: ??Patients with WBC >100,000 may have falsely elevated Potassium levels. ??For accurate Potassium quantification in these patients send serum separator tube (gold top) for subsequent determinations. ??Contact the Clinical Chemistry Laboratory if there are any questions. Chloride 103 98 - 107 mmol/L [facility] Carbon Dioxide 30 22 - 31 mmol/L [facility] Anion Gap 9 5 - 15 mmol/L [facility] Calcium 10.0 8.5 - 10.5 mg/dL [facility] Est Glomerular Filtration Rate 105 >=60 mL/min/1. 73 m?? [facility] Comment: This patient's estimated GFR was [...] In Lab Richard Pascal MD CHEMISTRY ORDERABLES [facility] [place] [address] * Phosphorus (09/08/2022 2:00 AM EDT) Phosphorus 3.2 2.5 - 4.5 mg/dL [facility] Blood 09/08/2022 2:00 AM EDT 09/08/2022 2:13 AM EDT Narrative Resulting Agency Comment Spec In Lab Richard Pascal MD CHEMISTRY ORDERABLES Performing Organization Address [facility]/ZIP Co de Phone Number [facility] [place] [address] * Magnesium (09/08/2022 2:00 AM EDT) Magnesium 0.90 0.69 - 1.07 mmol/L [facility] Blood 09/08/2022 2:00 AM EDT 09/08/2022 2:13 AM EDT Narrative Resulting Agency Comment Spec In Lab Richard Pascal MD CHEMISTRY ORDERABLES Performing Organization Address [facility] Co de Phone Number [facility] [place] [address] * POCT Glucose (09/07/2022 11:06 PM EDT) Glucose, POC 189 65 - 199 mg/dL [facility] Comment: Supplemental ranges: <140 mg/dL before meals <180 mg/dL all other times of the day Blood 09/07/2022 11:0 6 PM EDT 09/07/2022 11:06 PM EDT Richard Pascal MD POINT OF CARE TEST O RDERABLES Performing Organization Address City/[facility]/ZIP Co de Phone Number [facility] [place] [address] * POCT Glucose (09/07/2022 8:21 PM EDT) Glucose, POC 143 65 - 199 mg/dL [facility] Comment: Supplemental ranges: <140 mg/dL before meals <180 mg/dL all other times of the day Blood 09/07/2022 8:21 PM EDT 09/07/2022 8:21 PM EDT Molina Flores MD POINT OF CARE TEST ORDERABLES [facility] [place] [address] * POCT Glucose (09/07/2022 3:54 PM EDT) Glucose, POC 182 65 - 199 mg/dL [facility] Comment: Supplemental ranges: <140 mg/dL before meals <180 mg/dL all other times of the day Blood 09/07/2022 3:54 PM EDT 09/07/2022 3:54 PM EDT Molina Flores MD POINT OF CARE TEST ORDERABLES [facility] [place] [address] * POCT Glucose (09/07/2022 11:26 AM EDT) Glucose, POC 153 65 - 199 mg/dL [facility] Comment: Supplemental ranges: <140 mg/dL before meals <180 mg/dL all other times of the day Blood 09/07/2022 11:2 6 AM EDT 09/07/2022 11:26 AM EDT Molina Flores MD POINT OF CARE TEST ORDERABLES [facility] [place] [address] * POCT Glucose (09/07/2022 7:46 AM EDT) Glucose, POC 150 65 - 199 mg/dL [facility] Comment: Supplemental ranges: <140 mg/dL before meals <180 mg/dL all other times of the day Blood 09/07/2022 7:46 AM EDT 09/07/2022 7:46 AM EDT Richard Pascal MD POINT OF CARE TEST O GABRIELLA [facility] [place] [address] * EKG 12 Lead (09/07/2022 6:35 AM EDT) Ventricular rate 72 BPM MUSE SYSTEM Atrial Rate 72 BPM MUSE SYSTEM P-R Interval 148 ms MUSE SYSTEM QRS Duration 72 ms MUSE SYSTEM Q-T Interval 416 ms MUSE SYSTEM QTC Calculated (Bezet) 455 ms MUSE SYSTEM Calculated P [place] 53 degrees MUSE SYSTEM Calculated R [place] 86 degrees MUSE SYSTEM Calculated T [place] 149 degrees MUSE SYSTEM INTERPRETATION Normal sinus rhythm with sinus arrhythmia Low voltage QRS T wave abnormality, consider anterolateral ischemia Abnormal ECG When compared with ECG of 01-SEP-2022 02:24, No significant change was found I personally reviewed the tracing and edited the fellows interpretation Confirmed by fellow Niurka Rose ([id number]) on 09/07/2022 8:45:34 AM Confirmed by MD ALEJANDRA, RICHARD ([id number]) on 09/07/2022 1:55:43 PM MUSE SYSTEM 09/07/2022 6:35 AM EDT 09/07/2022 1:55 PM EDT Richard Pascal MD ECG ORDERABLES Performing Organization Address [facility]/ZIP Co de Phone Number MUSE SYSTEM * POCT Glucose (09/07/2022 4:08 AM EDT) Glucose, POC 135 65 - 199 mg/dL [facility] Comment: Supplemental ranges: <140 mg/dL before meals <180 mg/dL all other times of the day Blood 09/07/2022 4:08 AM EDT 09/07/2022 4:08 AM EDT Richard Pascal MD POINT OF CARE [place] [address] * (ABNORMAL) Differential, Automated (09/07/2022 12:30 AM EDT) Neutrophil % 43.6 % [facility] Neutrophil Absolute 2.71 1.70 - 6.10 x10(3)/[facility] Lymph % 33.3 % [facility] Lymphocytes Abs 2.1 0.9 - 3.2 x10(3)/[facility] Monocyte % 11.6 % [facility] Monocyte Abs 0.7 0.3 - 0.9 x10(3)/[facility] Eos % 9.5 % [facility] Eosinophils Abs 0.6(H) 0.0 - 0.4 x10(3)/[facility] Basophil % 1.4 % [facility] Baso Absolute 0.1 0.0 - 0.1 x10(3)/[facility] Immature Gran % 0.60 % [facility] Comment: Immature granulocytes(IG's)percentage and absolute count will include metamyelocytes, myelocytes, and promyelocytes. Blood smears from CBCs yielding IG's will be scanned manually for concordance. If this scan disagrees with the automated IG or if promyelocytes are noted, a manual differential will be performed. Immature Gran Absolute 0.04 0.00 - 0.04 x10(3)/[facility] Blood 09/07/2022 12:3 0 AM EDT 09/07/2022 12:54 AM EDT Narrative Resulting Agency Comment Spec In Lab Jigar Streeter MD [place] [address] * (ABNORMAL) Hemogram (09/07/2022 12:30 AM EDT) White Blood Cell 6.2 4.0 - 9.5 x10(3)/[facility] Red Blood Cell 4.11 4.00 - 5.21 x10(6)/mc L [facility] Hemoglobin 9.1(L) 11.7 - 15.5 g/dL [facility] Hematocrit 30.5(L) 35.7 - 45.8 % [facility] Mean Cell Volume 74.2(L) 82.6 - 94.4 fL [facility] Mean Cell Hemoglobin 22.1(L) 27.1 - 32.0 pg [facility] Mean Cell Hemoglobin Concentration 29.8(L) 31.7 - 35.0 g/dL [facility] Platelet 286 145 - 357 x10(3)/mc L [facility] RDW Standard Deviation Not Measured 37.0 - 46.0 fL [facility] RDW coefficient of variation Not Measured 11.5 - 14.1 % [facility] Mean Platelet Volume 9.6 7.6 - 12.9 fL [facility] NRBC% auto 0.0 % [facility] NRBC Absolute 0.000 0.000 - 0.000 x10(3)/[facility] Blood 09/07/2022 12:3 0 AM EDT 09/07/2022 12:54 AM EDT Narrative Resulting Agency Comment Spec In Lab Jigar Streeter MD HEMATOLOGY ORDERABLE S Performing Organization Address City/State/[facility] Co de Phone Number [facility] [place] [address] * (ABNORMAL) Basic Metabolic Panel (non-fasting) (09/07/2022 12:30 AM EDT) Glucose 144 65 - 199 mg/dL [facility] Comment:Diabetes: >=200 mg/d L plus symptoms Blood Urea Nitrogen 22(H) 8 - 18 mg/dL [facility] Creatinine 0.53(L) 0.70 - 1.20 mg/dL [facility] Sodium 138 135 - 145 mmol/L [facility] Potassium 4.6 3.5 - 5.0 mmol/L [facility] Comment: Please note: ??Patients with WBC >100,000 may have falsely elevated Potassium levels. ??For accurate Potassium quantification in these patients send serum separator tube (gold top) for subsequent determinations. ??Contact the Clinical Chemistry Laboratory if there are any questions. Chloride 103 98 - 107 mmol/L [facility] Carbon Dioxide 29 22 - 31 mmol/L [facility] Anion Gap 6 5 - 15 mmol/L [facility] Calcium 9.4 8.5 - 10.5 mg/dL [facility] Est Glomerular Filtration Rate 105 >=60 mL/min/1. 73 m?? [facility] Comment: This patient's estimated GFR was [...] In Lab Richard Pascal MD CHEMISTRY ORDERABLES [facility] [place] [address] * Phosphorus (09/07/2022 12:30 AM EDT) Phosphorus 3.0 2.5 - 4.5 mg/dL [facility] Blood 09/07/2022 12:3 0 AM EDT 09/07/2022 12:54 AM EDT Narrative Resulting Agency Comment Spec In Lab Richard Pascal MD CHEMISTRY ORDERABLES [facility] [place] [address] * Magnesium (09/07/2022 12:30 AM EDT) Magnesium 0.86 0.69 - 1.07 mmol/L [facility] Blood 09/07/2022 12:3 0 AM EDT 09/07/2022 12:54 AM EDT Narrative Resulting Agency Comment Spec In Lab Richard Pascal MD CHEMISTRY ORDERABLES Performing Organization Address City/[facility]/ZIP Co de Phone Number [facility] [place] [address] * POCT Glucose (09/07/2022 12:29 AM EDT) Glucose, POC 127 65 - 199 mg/dL [facility] Comment: Supplemental ranges: <140 mg/dL before meals <180 mg/dL all other times of the day Blood 09/07/2022 12:2 9 AM EDT 09/07/2022 12:29 AM EDT Richard Pascal MD POINT OF CARE TEST O RDERABLES Performing Organization Address [facility] Co de Phone Number [facility] [place] [address] * POCT Glucose (09/06/2022 9:54 PM EDT) Glucose, POC 184 65 - 199 mg/dL [facility] Comment: Supplemental ranges: <140 mg/dL before meals <180 mg/dL all other times of the day Blood 09/06/2022 9:54 PM EDT 09/06/2022 9:54 PM EDT Richard Pascal MD POINT OF CARE TEST O RDERABLES Performing Organization Address [facility] Co de Phone Number [facility] [place] [address] * POCT Glucose (09/06/2022 4:46 PM EDT) Glucose, POC 177 65 - 199 mg/dL [facility] Comment: Supplemental ranges: <140 mg/dL before meals <180 mg/dL all other times of the day Blood 09/06/2022 4:46 PM EDT 09/06/2022 4:46 PM EDT Richard Pascal MD POINT OF CARE TEST O RDERABLES [facility] [place] [address] * POCT Glucose (09/06/2022 12:57 PM EDT) Glucose, POC 176 65 - 199 mg/dL [facility] Comment: Supplemental ranges: <140 mg/dL before meals <180 mg/dL all other times of the day Blood 09/06/2022 12:5 7 PM EDT 09/06/2022 12:57 PM EDT Richard Pascal MD POINT OF CARE TEST O RDERABLES Performing Organization Address [facility] Co de Phone Number [facility] [place] [address] * POCT Glucose (09/06/2022 9:06 AM EDT) Glucose, POC 162 65 - 199 mg/dL [facility] Comment: Supplemental ranges: <140 mg/dL before meals <180 mg/dL all other times of the day Blood 09/06/2022 9:06 AM EDT 09/06/2022 9:06 AM EDT Richard Pascal MD POINT OF CARE TEST O RDERABLES Performing Organization Address [facility] Co de Phone Number [facility] [place] [address] * POCT Glucose (09/06/2022 3:39 AM EDT) Glucose, POC 102 65 - 199 mg/dL [facility] Comment: Supplemental ranges: <140 mg/dL before meals <180 mg/dL all other times of the day Blood 09/06/2022 3:39 AM EDT 09/06/2022 3:39 AM EDT Richard Pascal MD POINT OF CARE TEST O RDERABLES Performing Organization Address City/[facility] Co de Phone Number [facility] [place] [address] * (ABNORMAL) Differential, Automated (09/06/2022 1:00 AM EDT) Neutrophil % 41.9 % [facility] Neutrophil Absolute 2.64 1.70 - 6.10 x10(3)/[facility] LAB[facility] Lymph % 36.2 % [facility] Lymphocytes Abs 2.3 0.9 - 3.2 x10(3)/[facility]ORY Monocyte % 12.5 % [facility] Monocyte Abs 0.8 0.3 - 0.9 x10(3)/[facility] Eos % 7.6 % [facility] Eosinophils Abs 0.5(H) 0.0 - 0.4 x10(3)/[facility]ORY Basophil % 1.3 % [facility] Baso Absolute 0.1 0.0 - 0.1 x10(3)/[facility] Immature Gran % 0.50 % [facility] Comment: Immature granulocytes(IG's)percentage and absolute count will include metamyelocytes, myelocytes, and promyelocytes. Blood smears from CBCs yielding IG's will be scanned manually for concordance. If this scan disagrees with the automated IG or if promyelocytes are noted, a manual differential will be performed. Immature Gran Absolute 0.03 0.00 - 0.04 x10(3)/[facility]ORY Blood 09/06/2022 1:00 AM EDT 09/06/2022 1:34 AM EDT Narrative Resulting Agency Comment Spec In Lab Tyler Cobb MD HEMATOLOGY ORDERABLE S [facility] [place] [address] * (ABNORMAL) Hemogram (09/06/2022 1:00 AM EDT) White Blood Cell 6.3 4.0 - 9.5 x10(3)/[facility] Red Blood Cell 3.92(L) 4.00 - 5.21 x10(6)/[facility] Comment:Dimorphic RBC popula tion. Hemoglobin 8.6(L) 11.7 - 15.5 g/dL [facility] Hematocrit 29.0(L) 35.7 - 45.8 % [facility] Mean Cell Volume 74.0(L) 82.6 - 94.4 fL [facility] Mean Cell Hemoglobin 21.9(L) 27.1 - 32.0 pg [facility] Mean Cell Hemoglobin Concentration 29.7(L) 31.7 - 35.0 g/dL [facility] Platelet 297 145 - 357 x10(3)/mc L [facility] RDW Standard Deviation Not Measured 37.0 - 46.0 fL [facility] RDW coefficient of variation Not Measured 11.5 - 14.1 % [facility] Mean Platelet Volume 9.8 7.6 - 12.9 fL [facility] NRBC% auto 0.0 % [facility] NRBC Absolute 0.000 0.000 - 0.000 x10(3)/mc L [facility] Blood 09/06/2022 1:00 AM EDT 09/06/2022 1:34 AM EDT Narrative Resulting Agency Comment Spec In Lab Tyler Cobb MD HEMATOLOGY ORDERABLE S [facility] [place] [address] * (ABNORMAL) Basic Metabolic Panel (non-fasting) (09/06/2022 1:00 AM EDT) Glucose 95 65 - 199 mg/dL [facility] Comment:Diabetes: >=200 mg/d L plus symptoms Blood Urea Nitrogen 21(H) 8 - 18 mg/dL [facility] Creatinine 0.49(L) 0.70 - 1.20 mg/dL [facility] Sodium 139 135 - 145 mmol/L [facility] Potassium 4.3 3.5 - 5.0 mmol/L [facility] Comment: Please note: ??Patients with WBC >100,000 may have falsely elevated Potassium levels. ??For accurate Potassium quantification in these patients send serum separator tube (gold top) for subsequent determinations. ??Contact the Clinical Chemistry Laboratory if there are any questions. Chloride 104 98 - 107 mmol/L [facility] Carbon Dioxide 28 22 - 31 mmol/L [facility] Anion Gap 7 5 - 15 mmol/L [facility] Calcium 9.5 8.5 - 10.5 mg/dL [facility] Est Glomerular Filtration Rate 106 >=60 mL/min/1. 73 m?? [facility] Comment: This patient's estimated GFR was [...] CHEMISTRY ORDERABLES Performing Organization Address [facility] Co de Phone Number [facility] [place] [address] * Phosphorus (09/06/2022 1:00 AM EDT) Phosphorus 3.6 2.5 - 4.5 mg/dL [facility] Blood 09/06/2022 1:00 AM EDT 09/06/2022 1:34 AM EDT Narrative Resulting Agency Comment Spec In Lab Richard Pascal MD CHEMISTRY ORDERABLES Performing Organization Address [facility] Co de Phone Number [facility] [place] [address] * Magnesium (09/06/2022 1:00 AM EDT) Magnesium 0.81 0.69 - 1.07 mmol/L [facility] Blood 09/06/2022 1:00 AM EDT 09/06/2022 1:34 AM EDT Narrative Resulting Agency Comment Spec In Lab Richard Pascal MD CHEMISTRY ORDERABLES Performing Organization Address City/[facility]/ZIP Co de Phone Number [facility] [place] [address] * POCT Glucose (09/05/2022 11:29 PM EDT) Glucose, POC 94 65 - 199 mg/dL [facility] Comment: Supplemental ranges: <140 mg/dL before meals <180 mg/dL all other times of the day Blood 09/05/2022 11:2 9 PM EDT 09/05/2022 11:29 PM EDT Richard Pascal MD POINT OF CARE TEST O RDERABLES Performing Organization Address [facility] Co de Phone Number [facility] [place] [address] * POCT Glucose (09/05/2022 10:20 PM EDT) Glucose, POC 106 65 - 199 mg/dL [facility] Comment: Supplemental ranges: <140 mg/dL before meals <180 mg/dL all other times of the day Blood 09/05/2022 10:2 0 PM EDT 09/05/2022 10:20 PM EDT Richard Pascal MD POINT OF CARE TEST O RDERAREYMUNDO Performing Organization Address [facility] Co de Phone Number [facility] [place] [address] * (ABNORMAL) POCT Glucose (09/05/2022 7:17 PM EDT) Glucose, POC 225(H) 65 - 199 mg/dL [facility] Comment: Supplemental ranges: <140 mg/dL before meals <180 mg/dL all other times of the day Blood 09/05/2022 7:17 PM EDT 09/05/2022 7:17 PM EDT Richard Pascal MD POINT OF CARE TEST O RDERAREYMUNDO Performing Organization Address City/[facility]/ZIP Co de Phone Number [facility] [place] [address] * POCT Glucose (09/05/2022 3:54 PM EDT) Glucose, POC 142 65 - 199 mg/dL [facility] Comment: Supplemental ranges: <140 mg/dL before meals <180 mg/dL all other times of the day Blood 09/05/2022 3:54 PM EDT 09/05/2022 3:54 PM EDT Richard Pascal MD POINT OF CARE TEST O RDERABLES [facility] [place] [address] * POCT Glucose (09/05/2022 12:44 PM EDT) Glucose, POC 142 65 - 199 mg/dL [facility] Comment: Supplemental ranges: <140 mg/dL before meals <180 mg/dL all other times of the day Blood 09/05/2022 12:4 4 PM EDT 09/05/2022 12:44 PM EDT Richard Pascal MD POINT OF CARE TEST O RDERABLES Performing Organization Address City/[facility]/ZIP Co de Phone Number [facility] [place] [address] * POCT Glucose (09/05/2022 9:51 AM EDT) Glucose, POC 173 65 - 199 mg/dL [facility] Comment: Supplemental ranges: <140 mg/dL before meals <180 mg/dL all other times of the day Blood 09/05/2022 9:51 AM EDT 09/05/2022 9:51 AM EDT Richard Pascal MD POINT OF CARE TEST O RDERABLES [facility] [place] [address] * XR Chest One View (09/05/2022 9:24 AM EDT) Anatomical Region Laterality Modality Chest N/A Digital Radiogra phy Impressions 09/05/2022 3:43 PM EDT 1. Reposition enteric tube now extending below the diaphragm and included [id number]. 2. Similar appearance of elevated right hemidiaphragm and linear/patchy bibasilar opacities which may represent atelectasis or possibly aspiration. Thank you for letting us participate in the care of this patient. ??If you are a health care provider and have any questions regarding this report, please contact the number below. ??For patients who have questions please contact the health patient care technician instructor that requested your imaging first. ? Narrative [...] now extending below the diaphragm and included [id number]. Similar appearance of mild elevation of the [...] tube now extendingbelow the diaphragm and included [id number]. Similar appearance of mild elevation of the right hemidiaphragm withstreaky right basilar opacities and some mild patchy opacities at the left lungbase. No new focal airspace opacity. No appreciable pleural fluid collection. No pneumothorax. Cardiomediastinal silhouette is unchanged. No evidence of pulmonary edema. No acute osseous abnormality. IMPRESSION 1. Reposition enteric tube now extending below the diaphragm andincluded [id number]. 2. Similar appearance of elevated right hemidiaphragm and linear/patchy bibasilar opacities which may represent atelectasis or possiblyaspiration. Thank you for letting us participate in the care of this patient. If youare a health care provider and have any questions regarding this report,please contact the number below. For patients who have questions please contactthe health patient care technician instructor that requested your imaging first. Richard Pascal MD IMG DX ORDERABLES * POCT Glucose (09/05/2022 4:10 AM EDT) Glucose, POC 162 65 - 199 mg/dL [facility] Comment: Supplemental ranges: <140 mg/dL before meals <180 mg/dL all other times of the day Blood 09/05/2022 4:10 AM EDT 09/05/2022 4:10 AM EDT Tenisha Sandy MD POINT OF CARE MARIANELA T ORDERABLES [facility] [place] [address] * POCT Glucose (09/05/2022 1:18 AM EDT) Glucose, POC 98 65 - 199 mg/dL [facility] Comment: Supplemental ranges: <140 mg/dL before meals <180 mg/dL all other times of the day Blood 09/05/2022 1:18 AM EDT 09/05/2022 1:18 AM EDT Tenisha Sandy MD POINT OF CARE MARIANELA T ORDERABLES Performing Organization Address City/[facility]/[place] [address] * Differential, Automated (09/05/2022 1:06 AM EDT) Neutrophil % 38.7 % [facility] Neutrophil Absolute 1.88 1.70 - 6.10 x10(3)/[facility] LABORATORY Lymph % 35.9 % [facility] Lymphocytes Abs 1.8 0.9 - 3.2 x10(3)/[facility] Monocyte % 14.2 % [facility] Monocyte Abs 0.7 0.3 - 0.9 x10(3)/[facility] Eos % 9.2 % [facility] Eosinophils Abs 0.4 0.0 - 0.4 x10(3)/[facility] Basophil % 1.6 % [facility] Baso Absolute 0.1 0.0 - 0.1 x10(3)/[facility] Immature Gran % 0.40 % [facility] Comment: Immature granulocytes(IG's)percentage and absolute count will include metamyelocytes, myelocytes, and promyelocytes. Blood smears from CBCs yielding IG's will be scanned manually for concordance. If this scan disagrees with the automated IG or if promyelocytes are noted, a manual differential will be performed. Immature Gran Absolute 0.02 0.00 - 0.04 x10(3)/[facility] Blood 09/05/2022 1:06 AM EDT 09/05/2022 1:20 AM EDT Narrative Resulting Agency Comment Spec In Lab Tyler Cobb MD HEMATOLOGY ORDERABLE S Performing Organization Address City/[facility]/ZIP Co de Phone Number [facility] [place] [address] * (ABNORMAL) Hemogram (09/05/2022 1:06 AM EDT) White Blood Cell 4.9 4.0 - 9.5 x10(3)/mc L [facility] Red Blood Cell 3.93(L) 4.00 - 5.21 x10(6)/mc L [facility] Comment:Dimorphic RBC popula tion. Hemoglobin 8.7(L) 11.7 - 15.5 g/dL [facility] Hematocrit 29.0(L) 35.7 - 45.8 % [facility] Mean Cell Volume 73.8(L) 82.6 - 94.4 fL [facility] Mean Cell Hemoglobin 22.1(L) 27.1 - 32.0 pg [facility] Mean Cell Hemoglobin Concentration 30.0(L) 31.7 - 35.0 g/dL [facility] Platelet 314 145 - 357 x10(3)/mc L [facility] RDW Standard Deviation Not Measured 37.0 - 46.0 fL [facility] RDW coefficient of variation Not Measured 11.5 - 14.1 % [facility] Mean Platelet Volume 9.8 7.6 - 12.9 fL [facility] NRBC% auto 0.0 % [facility] NRBC Absolute 0.000 0.000 - 0.000 x10(3)/ L [facility] Blood 09/05/2022 1:06 AM EDT 09/05/2022 1:20 AM EDT Narrative Resulting Agency Comment Spec In Lab Tyler Cobb MD HEMATOLOGY ORDERABLE S [facility] [place] [address] * (ABNORMAL) Basic Metabolic Panel (non-fasting) (09/05/2022 1:06 AM EDT) Glucose 95 65 - 199 mg/dL [facility] Comment:Diabetes: >=200 mg/d L plus symptoms Blood Urea Nitrogen 21(H) 8 - 18 mg/dL [facility] Creatinine 0.49(L) 0.70 - 1.20 mg/dL [facility] Sodium 140 135 - 145 mmol/L [facility] Potassium 3.8 3.5 - 5.0 mmol/L [facility] Comment: Please note: ??Patients with WBC >100,000 may have falsely elevated Potassium levels. ??For accurate Potassium quantification in these patients send serum separator tube (gold top) for subsequent determinations. ??Contact the Clinical Chemistry Laboratory if there are any questions. Chloride 103 98 - 107 mmol/L [facility] Carbon Dioxide 28 22 - 31 mmol/L [facility] Anion Gap 9 5 - 15 mmol/L [facility] Calcium 9.5 8.5 - 10.5 mg/dL [facility] Est Glomerular Filtration Rate 106 >=60 mL/min/1. 73 m?? [facility] Comment: This patient's estimated GFR was [...] Pascal MD CHEMISTRY ORDERABLES Performing Organization Address City/[facility]/ZIP Co de Phone Number [facility] [place] [address] * Phosphorus (09/05/2022 1:06 AM EDT) Phosphorus 3.9 2.5 - 4.5 mg/dL [facility] Blood 09/05/2022 1:06 AM EDT 09/05/2022 1:20 AM EDT Narrative Resulting Agency Comment Spec In Lab Richard Pascal MD CHEMISTRY ORDERABLES Performing Organization Address City/[facility] Co de Phone Number [facility] [place] [address] * Magnesium (09/05/2022 1:06 AM EDT) Magnesium 0.91 0.69 - 1.07 mmol/L [facility] Blood 09/05/2022 1:06 AM EDT 09/05/2022 1:20 AM EDT Narrative Resulting Agency Comment Spec In Lab Richard Pascal MD CHEMISTRY ORDERABLES Performing Organization Address [facility] de Phone Number [facility] [place] [address] * POCT Glucose (09/04/2022 10:16 PM EDT) Glucose, POC 138 65 - 199 mg/dL [facility] Comment: Supplemental ranges: <140 mg/dL before meals <180 mg/dL all other times of the day Blood 09/04/2022 10:1 6 PM EDT 09/04/2022 10:16 PM EDT Tenisha Sandy MD POINT OF CARE MARIANELA T ORDERABLES Performing Organization Address [facility] de Phone Number [facility] [place] [address] * XR Abdomen 1 view (Generic) (09/04/2022 [...] who have questions please contact the health patient care technician instructor that requested your imaging first. ? Narrative [...] patients who have questions please contactthe health patient care technician instructor that requested your imaging first. Tenisha Sandy [...] who have questions please contact the health patient care technician instructor that requested your imaging first. ? Narrative [...] patients who have questions please contactthe health patient care technician instructor that requested your imaging first. Tenisha Sandy MD IMG DX ORDERABLES * POCT Glucose (09/04/2022 8:49 PM EDT) Glucose, POC 73 65 - 199 mg/dL [facility] Comment: Supplemental ranges: <140 mg/dL before meals <180 mg/dL all other times of the day Blood 09/04/2022 8:49 PM EDT 09/04/2022 8:49 PM EDT Tenisha Sandy MD POINT OF CARE MARIANELA T ORDERABLES [facility] [place] [address] * POCT Glucose (09/04/2022 5:20 PM EDT) Glucose, POC 136 65 - 199 mg/dL [facility] Comment: Supplemental ranges: <140 mg/dL before meals <180 mg/dL all other times of the day Blood 09/04/2022 5:20 PM EDT 09/04/2022 5:20 PM EDT Tenisha Sandy MD POINT OF CARE MARIANELA T ORDERABLES Performing Organization Address City/[facility] Co de Phone Number [facility] [place] [address] * (ABNORMAL) POCT Glucose (09/04/2022 4:39 PM EDT) Glucose, POC 64(L) 65 - 199 mg/dL [facility] Comment: Supplemental ranges: <140 mg/dL before meals <180 mg/dL all other times of the day Blood 09/04/2022 4:39 PM EDT 09/04/2022 4:39 PM EDT Tenisha Sandy MD POINT OF CARE MARIANELA T ORDERABLES Performing Organization Address City/[facility] Co de Phone Number [facility] [place] [address] * POCT Glucose (09/04/2022 3:21 PM EDT) Glucose, POC 68 65 - 199 mg/dL [facility] Comment: Supplemental ranges: <140 mg/dL before meals <180 mg/dL all other times of the day Blood 09/04/2022 3:21 PM EDT 09/04/2022 3:21 PM EDT Tenisha Sandy MD POINT OF CARE MARIANELA T ORDERABLES Performing Organization Address [facility] Co de Phone Number [facility] [place] [address] * POCT Glucose (09/04/2022 11:07 AM EDT) [facility] Signature Glucose, POC 107 65 - 199 mg/dL [facility] Comment: Supplemental ranges: <140 mg/dL before meals <180 mg/dL all other times of the day Blood 09/04/2022 11:0 7 AM EDT 09/04/2022 11:07 AM EDT Tenisha Sandy MD POINT OF CARE MARIANELA T ORDERABLES Performing Organization Address [facility] Co de Phone Number [facility] [place] [address] * XR Fluoro Barium Swallow (Modified/Video Swallow [...] who have questions please contact the health patient care technician instructor that requested your imaging first. ? Narrative [...] patients who have questions please contactthe health patient care technician instructor that requested your imaging first. Tenisha Sandy MD IMG FLUORO ORDERA BLES * POCT Glucose (09/04/2022 7:18 AM EDT) Glucose, POC 106 65 - 199 mg/dL [facility] Comment: Supplemental ranges: <140 mg/dL before meals <180 mg/dL all other times of the day Blood 09/04/2022 7:18 AM EDT 09/04/2022 7:18 AM EDT Tenisha Sandy MD POINT OF CARE MARIANELA T ORDERABLES [facility] [place] [address] * POCT Glucose (09/04/2022 3:35 AM EDT) Glucose, POC 107 65 - 199 mg/dL [facility] Comment: Supplemental ranges: <140 mg/dL before meals <180 mg/dL all other times of the day Blood 09/04/2022 3:35 AM EDT 09/04/2022 3:35 AM EDT Tenisha Sandy MD POINT OF CARE [place] [address] * Differential, Automated (09/04/2022 12:26 AM EDT) Neutrophil % 60.2 % [facility] Neutrophil Absolute 4.05 1.70 - 6.10 x10(3)/[facility] LABORAT[facility] Lymph % 27.4 % [facility] Lymphocytes Abs 1.8 0.9 - 3.2 x10(3)/[facility] Monocyte % 5.4 % [facility] Monocyte Abs 0.4 0.3 - 0.9 x10(3)/[facility] Eos % 5.4 % [facility] Eosinophils Abs 0.4 0.0 - 0.4 x10(3)/[facility] Basophil % 1.3 % [facility] Baso Absolute 0.1 0.0 - 0.1 x10(3)/[facility] Immature Gran % 0.30 % [facility] Comment: Immature granulocytes(IG's)percentage and absolute count will include metamyelocytes, myelocytes, and promyelocytes. Blood smears from CBCs yielding IG's will be scanned manually for concordance. If this scan disagrees with the automated IG or if promyelocytes are noted, a manual differential will be performed. Immature Gran Absolute 0.02 0.00 - 0.04 x10(3)/[facility] Blood 09/04/2022 12:2 6 AM EDT 09/04/2022 12:38 AM EDT Narrative Resulting Agency Comment Spec In Lab Tyler Cobb MD [place] [address] * (ABNORMAL) Hemogram (09/04/2022 12:26 AM EDT) White Blood Cell 6.7 4.0 - 9.5 x10(3)/ L [facility] Red Blood Cell 3.83(L) 4.00 - 5.21 x10(6)/mc L [facility] Comment:Dimorphic RBC popula tion. Hemoglobin 8.5(L) 11.7 - 15.5 g/dL [facility] Hematocrit 28.1(L) 35.7 - 45.8 % [facility] Mean Cell Volume 73.4(L) 82.6 - 94.4 fL [facility] Mean Cell Hemoglobin 22.2(L) 27.1 - 32.0 pg [facility] Mean Cell Hemoglobin Concentration 30.2(L) 31.7 - 35.0 g/dL [facility] Platelet 300 145 - 357 x10(3)/mc L [facility] RDW Standard Deviation Not Measured 37.0 - 46.0 fL [facility] RDW coefficient of variation Not Measured 11.5 - 14.1 % [facility] Mean Platelet Volume 9.9 7.6 - 12.9 fL [facility] NRBC% auto 0.0 % [facility] NRBC Absolute 0.000 0.000 - 0.000 x10(3)/ L [facility] Blood 09/04/2022 12:2 6 AM EDT 09/04/2022 12:38 AM EDT Narrative Resulting Agency Comment Spec In Lab Tyler Cobb MD HEMATOLOGY ORDERABLE S [facility] [place] [address] * (ABNORMAL) Basic Metabolic Panel (non-fasting) (09/04/2022 12:26 AM EDT) Glucose 131 65 - 199 mg/dL [facility] Comment:Diabetes: >=200 mg/d L plus symptoms Blood Urea Nitrogen 30(H) 8 - 18 mg/dL [facility] Creatinine 0.53(L) 0.70 - 1.20 mg/dL [facility] Sodium 141 135 - 145 mmol/L [facility] Potassium 4.3 3.5 - 5.0 mmol/L [facility] Comment: Please note: ??Patients with WBC >100,000 may have falsely elevated Potassium levels. ??For accurate Potassium quantification in these patients send serum separator tube (gold top) for subsequent determinations. ??Contact the Clinical Chemistry Laboratory if there are any questions. Chloride 104 98 - 107 mmol/L [facility] Carbon Dioxide 29 22 - 31 mmol/L [facility] Anion Gap 8 5 - 15 mmol/L [facility] Calcium 9.4 8.5 - 10.5 mg/dL [facility] Est Glomerular Filtration Rate 105 >=60 mL/min/1. 73 m?? [facility] Comment: This patient's estimated GFR was [...] In Lab Richard Pascal MD CHEMISTRY ORDERABLES [facility] [place] [address] * Phosphorus (09/04/2022 12:26 AM EDT) Phosphorus 3.2 2.5 - 4.5 mg/dL [facility] Blood 09/04/2022 12:2 6 AM EDT 09/04/2022 12:38 AM EDT Narrative Resulting Agency Comment Spec In Lab Richard Pascal MD CHEMISTRY ORDERABLES [facility] [place] [address] * Magnesium (09/04/2022 12:26 AM EDT) Magnesium 0.88 0.69 - 1.07 mmol/L [facility] Blood 09/04/2022 12:2 6 AM EDT 09/04/2022 12:38 AM EDT Narrative Resulting Agency Comment Spec In Lab Richard Pascal MD CHEMISTRY ORDERABLES Performing Organization Address City/[facility]/ZIP Co de Phone Number [facility] [place] [address] * POCT Glucose (09/04/2022 12:19 AM EDT) Glucose, POC 125 65 - 199 mg/dL [facility] Comment: Supplemental ranges: <140 mg/dL before meals <180 mg/dL all other times of the day Blood 09/04/2022 12:1 9 AM EDT 09/04/2022 12:19 AM EDT Tenisha Sandy MD POINT OF CARE MARIANELA T ORDERABLES Performing Organization Address [facility] Co de Phone Number [facility] [place] [address] * POCT Glucose (09/03/2022 7:30 PM EDT) Glucose, POC 166 65 - 199 mg/dL [facility] Comment: Supplemental ranges: <140 mg/dL before meals <180 mg/dL all other times of the day Blood 09/03/2022 7:30 PM EDT 09/03/2022 7:30 PM EDT Tenisha Sandy MD POINT OF CARE MARIANELA T ORDERABLES Performing Organization Address City/[facility] Co de Phone Number [facility] [place] [address] * (ABNORMAL) POCT Glucose (09/03/2022 4:00 PM EDT) Glucose, POC 207(H) 65 - 199 mg/dL [facility] Comment: Supplemental ranges: <140 mg/dL before meals <180 mg/dL all other times of the day Blood 09/03/2022 4:00 PM EDT 09/03/2022 4:00 PM EDT Tenisha Sandy MD POINT OF CARE MARIANELA T ORDERABLES Performing Organization Address City/[facility] Co de Phone Number [facility] [place] [address] * (ABNORMAL) POCT Glucose (09/03/2022 12:43 PM EDT) Glucose, POC 207(H) 65 - 199 mg/dL [facility] Comment: Supplemental ranges: <140 mg/dL before meals <180 mg/dL all other times of the day Blood 09/03/2022 12:4 3 PM EDT 09/03/2022 12:43 PM EDT Tenisha Sandy MD POINT OF CARE MARIANELA T ORDERABLES Performing Organization Address [facility] Co de Phone Number [facility] [place] [address] * POCT Glucose (09/03/2022 7:48 AM EDT) Glucose, POC 173 65 - 199 mg/dL [facility] Comment: Supplemental ranges: <140 mg/dL before meals <180 mg/dL all other times of the day Blood 09/03/2022 7:48 AM EDT 09/03/2022 7:48 AM EDT Tenisha Sandy MD POINT OF CARE MARIANELA T ORDERABLES Performing Organization Address [facility] Co de Phone Number [facility] [place] [address] * POCT Glucose (09/03/2022 4:52 AM EDT) Glucose, POC 91 65 - 199 mg/dL [facility] Comment: Supplemental ranges: <140 mg/dL before meals <180 mg/dL all other times of the day Blood 09/03/2022 4:52 AM EDT 09/03/2022 4:52 AM EDT Tenisha Sandy MD POINT OF CARE [place] [address] * Differential, Automated (09/03/2022 12:40 AM EDT) Neutrophil % 42.9 % [facility] Neutrophil Absolute 2.19 1.70 - 6.10 x10(3)/[facility] Lymph % 38.0 % [facility] Lymphocytes Abs 1.9 0.9 - 3.2 x10(3)/[facility] Monocyte % 11.6 % [facility] Monocyte Abs 0.6 0.3 - 0.9 x10(3)/[facility] Eos % 5.7 % [facility] Eosinophils Abs 0.3 0.0 - 0.4 x10(3)/[facility] Basophil % 1.6 % [facility] Baso Absolute 0.1 0.0 - 0.1 x10(3)/[facility] Immature Gran % 0.20 % [facility] Comment: Immature granulocytes(IG's)percentage and absolute count will include metamyelocytes, myelocytes, and promyelocytes. Blood smears from CBCs yielding IG's will be scanned manually for concordance. If this scan disagrees with the automated IG or if promyelocytes are noted, a manual differential will be performed. Immature Gran Absolute 0.01 0.00 - 0.04 x10(3)/[facility] Blood 09/03/2022 12:4 0 AM EDT 09/03/2022 12:51 AM EDT Narrative Resulting Agency Comment Spec In Lab Tyler Cobb MD [place] [address] * (ABNORMAL) Hemogram (09/03/2022 12:40 AM EDT) White Blood Cell 5.1 4.0 - 9.5 x10(3)/mc L [facility] Red Blood Cell 3.75(L) 4.00 - 5.21 x10(6)/mc L [facility] Comment:Dimorphic RBC popula tion. Hemoglobin 8.4(L) 11.7 - 15.5 g/dL [facility] Hematocrit 27.1(L) 35.7 - 45.8 % [facility] Mean Cell Volume 72.3(L) 82.6 - 94.4 fL [facility] Mean Cell Hemoglobin 22.4(L) 27.1 - 32.0 pg [facility] Mean Cell Hemoglobin Concentration 31.0(L) 31.7 - 35.0 g/dL [facility] Platelet 305 145 - 357 x10(3)/mc L [facility] RDW Standard Deviation Not Measured 37.0 - 46.0 fL [facility] RDW coefficient of variation Not Measured 11.5 - 14.1 % [facility] Mean Platelet Volume 9.8 7.6 - 12.9 fL [facility] NRBC% auto 0.0 % [facility] NRBC Absolute 0.000 0.000 - 0.000 x10(3)/ L [facility] Blood 09/03/2022 12:4 0 AM EDT 09/03/2022 12:51 AM EDT Narrative Resulting Agency Comment Spec In Lab Tyler Cobb MD HEMATOLOGY ORDERABLE S [facility] [place] [address] * (ABNORMAL) Basic Metabolic Panel (non-fasting) (09/03/2022 12:40 AM EDT) Glucose 107 65 - 199 mg/dL [facility] Comment:Diabetes: >=200 mg/d L plus symptoms Blood Urea Nitrogen 28(H) 8 - 18 mg/dL [facility] Creatinine 0.49(L) 0.70 - 1.20 mg/dL [facility] Sodium 138 135 - 145 mmol/L [facility] Potassium 4.1 3.5 - 5.0 mmol/L [facility] Comment: Please note: ??Patients with WBC >100,000 may have falsely elevated Potassium levels. ??For accurate Potassium quantification in these patients send serum separator tube (gold top) for subsequent determinations. ??Contact the Clinical Chemistry Laboratory if there are any questions. Chloride 102 98 - 107 mmol/L [facility] Carbon Dioxide 29 22 - 31 mmol/L [facility] Anion Gap 7 5 - 15 mmol/L [facility] Calcium 9.2 8.5 - 10.5 mg/dL [facility] Est Glomerular Filtration Rate 106 >=60 mL/min/1. 73 m?? [facility] Comment: This patient's estimated GFR was [...] In Lab Richard Pascal MD CHEMISTRY ORDERABLES [facility] [place] [address] * Phosphorus (09/03/2022 12:40 AM EDT) Phosphorus 3.4 2.5 - 4.5 mg/dL [facility] Blood 09/03/2022 12:4 0 AM EDT 09/03/2022 12:51 AM EDT Narrative Resulting Agency Comment Spec In Lab Richard Pascal MD CHEMISTRY ORDERABLES [facility] [place] [address] * Magnesium (09/03/2022 12:40 AM EDT) Magnesium 0.96 0.69 - 1.07 mmol/L [facility] Blood 09/03/2022 12:4 0 AM EDT 09/03/2022 12:51 AM EDT Narrative Resulting Agency Comment Spec In Lab Richard Pascal MD CHEMISTRY ORDERABLES Performing Organization Address City/[facility] Co de Phone Number [facility] [place] [address] * POCT Glucose (09/02/2022 11:05 PM EDT) Glucose, POC 106 65 - 199 mg/dL [facility] Comment: Supplemental ranges: <140 mg/dL before meals <180 mg/dL all other times of the day Blood 09/02/2022 11:0 5 PM EDT 09/02/2022 11:05 PM EDT Tenisha Sandy MD POINT OF CARE MARIANELA T ORDERABLES Performing Organization Address [facility] Co de Phone Number [facility] [place] [address] * POCT Glucose (09/02/2022 8:05 PM EDT) Glucose, POC 107 65 - 199 mg/dL [facility] Comment: Supplemental ranges: <140 mg/dL before meals <180 mg/dL all other times of the day Blood 09/02/2022 8:05 PM EDT 09/02/2022 8:05 PM EDT Tenisha Sandy MD POINT OF CARE MARIANELA T ORDERABLES Performing Organization Address City/[facility] Co de Phone Number [facility] [place] [address] * POCT Glucose (09/02/2022 4:22 PM EDT) Glucose, POC 183 65 - 199 mg/dL [facility] Comment: Supplemental ranges: <140 mg/dL before meals <180 mg/dL all other times of the day Blood 09/02/2022 4:22 PM EDT 09/02/2022 4:22 PM EDT Tenisha Sandy MD POINT OF CARE MARIANELA T ORDERABLES [facility] [place] [address] * POCT Glucose (09/02/2022 12:22 PM EDT) Glucose, POC 194 65 - 199 mg/dL [facility] Comment: Supplemental ranges: <140 mg/dL before meals <180 mg/dL all other times of the day Blood 09/02/2022 12:2 2 PM EDT 09/02/2022 12:22 PM EDT Tenisha Sandy MD POINT OF CARE MARIANELA T ORDERABLES Performing Organization Address City/[facility] Co de Phone Number [facility] [place] [address] * POCT Glucose (09/02/2022 7:49 AM EDT) Glucose, POC 141 65 - 199 mg/dL [facility] Comment: Supplemental ranges: <140 mg/dL before meals <180 mg/dL all other times of the day Blood 09/02/2022 7:49 AM EDT 09/02/2022 7:49 AM EDT Tenisha Sandy MD POINT OF CARE MARIANELA T ORDERABLES Performing Organization Address City/[facility]/ZIP Co de Phone Number [facility] [place] [address] * POCT Glucose (09/02/2022 5:43 AM EDT) Glucose, POC 102 65 - 199 mg/dL [facility] Comment: Supplemental ranges: <140 mg/dL before meals <180 mg/dL all other times of the day Blood 09/02/2022 5:43 AM EDT 09/02/2022 5:43 AM EDT Tenisha Sandy MD POINT OF CARE MARIANELA T ORDERABLES [facility] [place] [address] * POCT Glucose (09/02/2022 3:44 AM EDT) Pathologist [facility] Glucose, POC 112 65 - 199 mg/dL [facility] Comment: Supplemental ranges: <140 mg/dL before meals <180 mg/dL all other times of the day Blood 09/02/2022 3:44 AM EDT 09/02/2022 3:44 AM EDT Tenisha Sandy MD POINT OF CARE MARIANELA T ORDERABLES Performing Organization Address [facility] de Phone Number [facility] [place] [address] * (ABNORMAL) Reticulocyte Count (09/02/2022 1:05 AM EDT) [facility] Reticulocyte % 2.2 0.7 - 2.5 % [facility] Retic Abs # 0.080 0.020 - 0.110 x10(6)/[facility] LAB[facility]ATORY Immature Retic% 45.2(H) 0.5 - 13.8 % [facility] Reticulated Hgb 22.9(L) 29.8 - 39.4 pg [facility] Blood Venous Draw / Unknown 09/02/2022 1:05 AM EDT 09/02/2022 1:19 AM EDT Narrative Resulting Agency Comment Spec In Lab Irwin Jones MD HEMATOLOGY ORDERAB LES Performing Organization Address [facility] Co de Phone Number [facility] [place] [address] * Differential, Automated (09/02/2022 1:05 AM EDT) [facility] Neutrophil % 48.4 % [facility] Neutrophil Absolute 2.83 1.70 - 6.10 x10(3)/[facility] Lymph % 34.6 % [facility] Lymphocytes Abs 2.0 0.9 - 3.2 x10(3)/[facility] Monocyte % 10.4 % [facility] Monocyte Abs 0.6 0.3 - 0.9 x10(3)/[facility] Eos % 4.8 % [facility] Eosinophils Abs 0.3 0.0 - 0.4 x10(3)/[facility] Basophil % 1.5 % [facility] Baso Absolute 0.1 0.0 - 0.1 x10(3)/[facility] Immature Gran % 0.30 % [facility] Comment: Immature granulocytes(IG's)percentage and absolute count will include metamyelocytes, myelocytes, and promyelocytes. Blood smears from CBCs yielding IG's will be scanned manually for concordance. If this scan disagrees with the automated IG or if promyelocytes are noted, a manual differential will be performed. Immature Gran Absolute 0.02 0.00 - 0.04 x10(3)/[facility] Blood 09/02/2022 1:05 AM EDT 09/02/2022 1:19 AM EDT Narrative Resulting Agency Comment Spec In Lab Tyler Cobb MD HEMATOLOGY ORDERABLE S [facility] [place] [address] * (ABNORMAL) Hemogram (09/02/2022 1:05 AM EDT) White Blood Cell 5.9 4.0 - 9.5 x10(3)/mc L [facility] Red Blood Cell 3.81(L) 4.00 - 5.21 x10(6)/[facility] LABORATORY Comment: CORRECTION: ADDING COMMENT : Dimorphic RBC population. Corrected from 3.81 x10(6)/[facility] [LOW] on 09/02/22 11:26:40 EDT by Jigar Palmer Hemoglobin 8.3(L) 11.7 - 15.5 g/dL [facility] Hematocrit 27.7(L) 35.7 - 45.8 % [facility] Mean Cell Volume 72.7(L) 82.6 - 94.4 fL [facility] Mean Cell Hemoglobin 21.8(L) 27.1 - 32.0 pg [facility] Mean Cell Hemoglobin Concentration 30.0(L) 31.7 - 35.0 g/dL [facility] Platelet 344 145 - 357 x10(3)/mc L [facility] RDW Standard Deviation Not Measured 37.0 - 46.0 fL [facility] RDW coefficient of variation Not Measured 11.5 - 14.1 % [facility] Mean Platelet Volume 9.8 7.6 - 12.9 fL [facility] NRBC% auto 0.0 % [facility] NRBC Absolute 0.000 0.000 - 0.000 x10(3)/mc L [facility] Blood 09/02/2022 1:05 AM EDT 09/02/2022 1:19 AM EDT Narrative Resulting Agency Comment Spec In Lab Tyler Cobb MD HEMATOLOGY ORDERABLE S [facility] [place] [address] * (ABNORMAL) Basic Metabolic Panel (non-fasting) (09/02/2022 1:05 AM EDT) Glucose 114 65 - 199 mg/dL [facility] Comment:Diabetes: >=200 mg/d L plus symptoms Blood Urea Nitrogen 30(H) 8 - 18 mg/dL [facility] Creatinine 0.52(L) 0.70 - 1.20 mg/dL [facility] Sodium 136 135 - 145 mmol/L [facility] Potassium 4.4 3.5 - 5.0 mmol/L [facility] Comment: Please note: ??Patients with WBC >100,000 may have falsely elevated Potassium levels. ??For accurate Potassium quantification in these patients send serum separator tube (gold top) for subsequent determinations. ??Contact the Clinical Chemistry Laboratory if there are any questions. Chloride 100 98 - 107 mmol/L [facility] Carbon Dioxide 30 22 - 31 mmol/L [facility] Anion Gap 6 5 - 15 mmol/L [facility] Calcium 9.5 8.5 - 10.5 mg/dL [facility] Est Glomerular Filtration Rate 105 >=60 mL/min/1. 73 m?? [facility] Comment: This patient's estimated GFR was [...] CHEMISTRY ORDERABLES Performing Organization Address [facility] Co de Phone Number [facility] [place] [address] * Phosphorus (09/02/2022 1:05 AM EDT) Phosphorus 3.9 2.5 - 4.5 mg/dL [facility] Blood 09/02/2022 1:05 AM EDT 09/02/2022 1:19 AM EDT Narrative Resulting Agency Comment Spec In Lab Richard Pascal MD CHEMISTRY ORDERABLES Performing Organization Address [facility] Co de Phone Number [facility] [place] [address] * Magnesium (09/02/2022 1:05 AM EDT) Magnesium 0.87 0.69 - 1.07 mmol/L [facility] Blood 09/02/2022 1:05 AM EDT 09/02/2022 1:19 AM EDT Narrative Resulting Agency Comment Spec In Lab Richard Pascal MD CHEMISTRY ORDERABLES Performing Organization Address [facility] Co de Phone Number [facility] [place] [address] * POCT Glucose (09/02/2022 12:51 AM EDT) Glucose, POC 110 65 - 199 mg/dL [facility] Comment: Supplemental ranges: <140 mg/dL before meals <180 mg/dL all other times of the day Blood 09/02/2022 12:5 1 AM EDT 09/02/2022 12:51 AM EDT Tenisha Sandy MD POINT OF CARE MARIANELA T ORDERABLES [facility] [place] [address] * POCT Glucose (09/01/2022 8:11 PM EDT) Glucose, POC 93 65 - 199 mg/dL [facility] Comment: Supplemental ranges: <140 mg/dL before meals <180 mg/dL all other times of the day Blood 09/01/2022 8:11 PM EDT 09/01/2022 8:11 PM EDT Tenisha Sandy MD POINT OF CARE MARIANELA T ORDERABLES Performing Organization Address City/[facility] Co de Phone Number [facility] [place] [address] * POCT Glucose (09/01/2022 5:41 PM EDT) Glucose, POC 170 65 - 199 mg/dL [facility] Comment: Supplemental ranges: <140 mg/dL before meals <180 mg/dL all other times of the day Blood 09/01/2022 5:41 PM EDT 09/01/2022 5:41 PM EDT Tenisha Sandy MD POINT OF CARE MARIANELA T ORDERABLES [facility] [place] [address] * POCT Glucose (09/01/2022 11:33 AM EDT) Glucose, POC 171 65 - 199 mg/dL [facility] Comment: Supplemental ranges: <140 mg/dL before meals <180 mg/dL all other times of the day Blood 09/01/2022 11:3 3 AM EDT 09/01/2022 11:33 AM EDT Tenisha Sandy MD POINT OF CARE MARIANELA T ORDERABLES Performing Organization Address City/[facility] Co de Phone Number [facility] [place] [address] * POCT Glucose (09/01/2022 7:55 AM EDT) Glucose, POC 166 65 - 199 mg/dL [facility] Comment: Supplemental ranges: <140 mg/dL before meals <180 mg/dL all other times of the day Blood 09/01/2022 7:55 AM EDT 09/01/2022 7:55 AM EDT Tenisha Sandy MD POINT OF CARE MARIANELA T ORDERABLES Performing Organization Address [facility] Co de Phone Number [facility] [place] [address] * POCT Glucose (09/01/2022 3:29 AM EDT) Glucose, POC 87 65 - 199 mg/dL [facility] Comment: Supplemental ranges: <140 mg/dL before meals <180 mg/dL all other times of the day Blood 09/01/2022 3:29 AM EDT 09/01/2022 3:29 AM EDT Tenisha Sandy MD POINT OF CARE MARIANELA T ORDERABLES Performing Organization Address [facility] Co de Phone Number [facility] [place] [address] * EKG 12 Lead (09/01/2022 2:24 AM EDT) Ventricular rate 80 BPM MUSE SYSTEM Atrial Rate 80 BPM MUSE SYSTEM P-R Interval 150 ms MUSE SYSTEM QRS Duration 76 ms MUSE SYSTEM Q-T Interval 412 ms MUSE SYSTEM QTC Calculated (Bezet) 475 ms MUSE SYSTEM Calculated P [place] 50 degrees MUSE SYSTEM Calculated R [place] 70 degrees MUSE SYSTEM Calculated T [place] 174 degrees MUSE SYSTEM INTERPRETATION Normal sinus [...] Sandy MD ECG ORDERABLES Performing Organization Address City/[facility] Co de Phone Number MUSE SYSTEM * Scan, Peripheral Blood (09/01/2022 2:10 AM EDT) Plat estimate Increased [facility] RBC Morphology Abnormal [facility] Macrocyte 1-5 /HPF [facility] Microcyte 6-10 /HPF [facility] Hypochromia Slight [facility] Polychromasia Present >5/HPF [facility] Ovalocytes 1-5 /HPF [facility] ITAL LAB[facility] Target Cells 1-5 /HPF [facility] Connor Cells 6-10 /HPF [facility] Plat, Giant Less than 1 /HPF [facility] Blood 09/01/2022 2:10 AM EDT 09/01/2022 2:15 AM EDT Narrative Resulting Agency Comment Spec In Lab Tyler Cobb MD HEMATOLOGY ORDERABLE S Performing Organization Address [facility] Co de Phone Number [facility] [place] [address] * Differential, Automated (09/01/2022 2:10 AM EDT) Neutrophil % 46.0 % [facility] Neutrophil Absolute 2.52 1.70 - 6.10 x10(3)/[facility] LABORATORY Lymph % 37.1 % [facility] Lymphocytes Abs 2.0 0.9 - 3.2 x10(3)/[facility] Monocyte % 10.1 % [facility] ITAL [facility] Monocyte Abs 0.6 0.3 - 0.9 x10(3)/[facility] Eos % 5.3 % [facility] Eosinophils Abs 0.3 0.0 - 0.4 x10(3)/[facility] Basophil % 1.3 % [facility] ITAL LABORATORY Baso Absolute 0.1 0.0 - 0.1 x10(3)/[facility]AT[facility] Immature Gran % 0.20 % [facility] Comment: Immature granulocytes(IG's)percentage and absolute count will include metamyelocytes, myelocytes, and promyelocytes. Blood smears from CBCs yielding IG's will be scanned manually for concordance. If this scan disagrees with the automated IG or if promyelocytes are noted, a manual differential will be performed. Immature Gran Absolute 0.01 0.00 - 0.04 x10(3)/[facility] Blood 09/01/2022 2:10 AM EDT 09/01/2022 2:15 AM EDT Narrative Resulting Agency Comment Spec In Lab Tyler Cobb MD HEMATOLOGY ORDERABLE S [facility] [place] [address] * (ABNORMAL) Hemogram (09/01/2022 2:10 AM EDT) White Blood Cell 5.5 4.0 - 9.5 x10(3)/[facility] LABORATORY Red Blood Cell 3.95(L) 4.00 - 5.21 x10(6)/[facility] LABORATORY Comment:Dimorphic RBC popula tion. Hemoglobin 8.7(L) 11.7 - 15.5 g/dL [facility] Hematocrit 28.5(L) 35.7 - 45.8 % [facility] Mean Cell Volume 72.2(L) 82.6 - 94.4 fL [facility] Mean Cell Hemoglobin 22.0(L) 27.1 - 32.0 pg [facility] Mean Cell Hemoglobin Concentration 30.5(L) 31.7 - 35.0 g/dL [facility] Platelet 361(H) 145 - 357 x10(3)/ L [facility] RDW Standard Deviation Not Measured 37.0 - 46.0 fL [facility] RDW coefficient of variation Not Measured 11.5 - 14.1 % [facility] Mean Platelet Volume 9.5 7.6 - 12.9 fL [facility] NRBC% auto 0.0 % [facility] IT[facility] LABOR[facility] NRBC Absolute 0.000 0.000 - 0.000 x10(3)/mc L [facility] Blood 09/01/2022 2:10 AM EDT 09/01/2022 2:15 AM EDT Narrative Resulting Agency Comment Spec In Lab Tyler Cobb MD HEMATOLOGY ORDERABLE S [facility] [place] [address] * (ABNORMAL) Basic Metabolic Panel (non-fasting) (09/01/2022 2:10 AM EDT) Glucose 86 65 - 199 mg/dL [facility] Comment:Diabetes: >=200 mg/d L plus symptoms Blood Urea Nitrogen 29(H) 8 - 18 mg/dL [facility] Creatinine 0.51(L) 0.70 - 1.20 mg/dL [facility] Sodium 140 135 - 145 mmol/L [facility] Potassium 4.6 3.5 - 5.0 mmol/L [facility] Comment: Please note: ??Patients with WBC >100,000 may have falsely elevated Potassium levels. ??For accurate Potassium quantification in these patients send serum separator tube (gold top) for subsequent determinations. ??Contact the Clinical Chemistry Laboratory if there are any questions. Chloride 104 98 - 107 mmol/L [facility] Carbon Dioxide 29 22 - 31 mmol/L [facility] Anion Gap 7 5 - 15 mmol/L [facility] Calcium 9.4 8.5 - 10.5 mg/dL [facility] Est Glomerular Filtration Rate 105 >=60 mL/min/1. 73 m?? [facility] Comment: This patient's estimated GFR was [...] In Lab Richard Pascal MD CHEMISTRY ORDERABLES [facility] [place] [address] * Phosphorus (09/01/2022 2:10 AM EDT) Phosphorus 4.3 2.5 - 4.5 mg/dL [facility] Blood 09/01/2022 2:10 AM EDT 09/01/2022 2:15 AM EDT Narrative Resulting Agency Comment Spec In Lab Richard Pascal MD CHEMISTRY ORDERABLES Performing Organization Address City/[facility] Co de Phone Number [facility] [place] [address] * Magnesium (09/01/2022 2:10 AM EDT) Magnesium 0.94 0.69 - 1.07 mmol/L [facility] Blood 09/01/2022 2:10 AM EDT 09/01/2022 2:15 AM EDT Narrative Resulting Agency Comment Spec In Lab Richard Pascal MD CHEMISTRY ORDERABLES Performing Organization Address City/[facility]/ZIP Co de Phone Number [facility] [place] [address] * POCT Glucose (08/31/2022 11:46 PM EDT) Glucose, POC 93 65 - 199 mg/dL [facility] Comment: Supplemental ranges: <140 mg/dL before meals <180 mg/dL all other times of the day Blood 08/31/2022 11:4 6 PM EDT 08/31/2022 11:46 PM EDT Tenisha Sandy MD POINT OF CARE MARIANELA T ORDERABLES Performing Organization Address [facility] Co de Phone Number [facility] [place] [address] * POCT Glucose (08/31/2022 8:12 PM EDT) Glucose, POC 110 65 - 199 mg/dL [facility] Comment: Supplemental ranges: <140 mg/dL before meals <180 mg/dL all other times of the day Blood 08/31/2022 8:12 PM EDT 08/31/2022 8:12 PM EDT Tenisha Sandy MD POINT OF CARE MARIANELA T ORDERABLES Performing Organization Address [facility] Co de Phone Number [facility] [place] [address] * (ABNORMAL) POCT Glucose (08/31/2022 4:32 PM EDT) Glucose, POC 206(H) 65 - 199 mg/dL [facility] Comment: Supplemental ranges: <140 mg/dL before meals <180 mg/dL all other times of the day Blood 08/31/2022 4:32 PM EDT 08/31/2022 4:32 PM EDT Tenisha Sandy MD POINT OF CARE MARIANELA T ORDERABLES Performing Organization Address [facility] Co de Phone Number [facility] [place] [address] * POCT Glucose (08/31/2022 11:42 AM EDT) Glucose, POC 163 65 - 199 mg/dL [facility] Comment: Supplemental ranges: <140 mg/dL before meals <180 mg/dL all other times of the day Blood 08/31/2022 11:4 2 AM EDT 08/31/2022 11:42 AM EDT Tenisha Sandy MD POINT OF CARE [place] [address] * XR Fluoro Barium Swallow (Modified/Video Swallow [...] who have questions please contact the health patient care technician instructor that requested your imaging first. ? Narrative [...] There is delayed elevation of the larynx fdc between the vallecula and piriform sinuses. It [...] There is delayed elevation of the larynx fdc between the valleculaand piriform sinuses. It is [...] patients who have questions please contactthe health patient care technician instructor that requested your imaging first. Milagros Hernandez MD IMG FLUORO ORDERABLE S * POCT Glucose (08/31/2022 7:36 AM EDT) Glucose, POC 116 65 - 199 mg/dL [facility] Comment: Supplemental ranges: <140 mg/dL before meals <180 mg/dL all other times of the day Blood 08/31/2022 7:36 AM EDT 08/31/2022 7:36 AM EDT Alfonso Navarrete MD POINT OF CARE TEST O RDERABLES Performing Organization Address City/[facility]/[place] [address] * Differential, Automated (08/31/2022 4:30 AM EDT) Neutrophil % 59.8 % [facility] Neutrophil Absolute 4.03 1.70 - 6.10 x10(3)/[facility] Lymph % 26.3 % [facility] Lymphocytes Abs 1.8 0.9 - 3.2 x10(3)/[facility] Monocyte % 7.9 % [facility] Monocyte Abs 0.5 0.3 - 0.9 x10(3)/[facility] Eos % 4.7 % [facility] Eosinophils Abs 0.3 0.0 - 0.4 x10(3)/[facility] Basophil % 1.0 % [facility] Baso Absolute 0.1 0.0 - 0.1 x10(3)/[facility] Immature Gran % 0.30 % [facility] Comment: Immature granulocytes(IG's)percentage and absolute count will include metamyelocytes, myelocytes, and promyelocytes. Blood smears from CBCs yielding IG's will be scanned manually for concordance. If this scan disagrees with the automated IG or if promyelocytes are noted, a manual differential will be performed. Immature Gran Absolute 0.02 0.00 - 0.04 x10(3)/[facility] Blood 08/31/2022 4:30 AM EDT 08/31/2022 4:36 AM EDT Narrative Resulting Agency Comment Spec In Lab Tyler Cobb MD HEMATOLOGY ORDERABLE S Performing Organization Address City/[facility]/[place] [address] * (ABNORMAL) Hemogram (08/31/2022 4:30 AM EDT) White Blood Cell 6.7 4.0 - 9.5 x10(3)/mc L [facility] Red Blood Cell 3.97(L) 4.00 - 5.21 x10(6)/mc L [facility] Comment:Dimorphic RBC popula tion. Hemoglobin 8.7(L) 11.7 - 15.5 g/dL [facility] Hematocrit 29.2(L) 35.7 - 45.8 % [facility] Mean Cell Volume 73.6(L) 82.6 - 94.4 fL [facility] Mean Cell Hemoglobin 21.9(L) 27.1 - 32.0 pg [facility] Mean Cell Hemoglobin Concentration 29.8(L) 31.7 - 35.0 g/dL [facility] Platelet 330 145 - 357 x10(3)/ L [facility] RDW Standard Deviation Not Measured 37.0 - 46.0 fL [facility] RDW coefficient of variation Not Measured 11.5 - 14.1 % [facility] Mean Platelet Volume 9.8 7.6 - 12.9 fL [facility] NRBC% auto 0.0 % [facility] NRBC Absolute 0.000 0.000 - 0.000 x10(3)/ L [facility] Blood 08/31/2022 4:30 AM EDT 08/31/2022 4:36 AM EDT Narrative Resulting Agency Comment Spec In Lab Tyler Cobb MD HEMATOLOGY ORDERABLE S [facility] [place] [address] * Phosphorus (08/31/2022 4:30 AM EDT) Phosphorus 3.4 2.5 - 4.5 mg/dL [facility] Blood 08/31/2022 4:30 AM EDT 08/31/2022 4:36 AM EDT Narrative Resulting Agency Comment Spec In Lab Richard Pascal MD CHEMISTRY ORDERABLES [facility] [place] [address] * Magnesium (08/31/2022 4:30 AM EDT) Magnesium 0.81 0.69 - 1.07 mmol/L [facility] Blood 08/31/2022 4:30 AM EDT 08/31/2022 4:36 AM EDT Narrative Resulting Agency Comment Spec In Lab Richard Pascal MD CHEMISTRY ORDERABLES Performing Organization Address City/[facility]/ZIP Co de Phone Number [facility] [place] [address] * POCT Glucose (08/31/2022 4:08 AM EDT) Glucose, POC 88 65 - 199 mg/dL [facility] Comment: Supplemental ranges: <140 mg/dL before meals <180 mg/dL all other times of the day Blood 08/31/2022 4:08 AM EDT 08/31/2022 4:08 AM EDT Alfonso Navarrete MD POINT OF CARE TEST O RDERABLES Performing Organization Address [facility] Co de Phone Number [facility] [place] [address] * POCT Glucose (08/31/2022 12:03 AM EDT) Glucose, POC 98 65 - 199 mg/dL [facility] Comment: Supplemental ranges: <140 mg/dL before meals <180 mg/dL all other times of the day Blood 08/31/2022 12:0 3 AM EDT 08/31/2022 12:03 AM EDT Alfonso Navarrete MD POINT OF CARE TEST O RDERABLES Performing Organization Address [facility] Co de Phone Number [facility] [place] [address] * POCT Glucose (08/30/2022 7:58 PM EDT) Glucose, POC 131 65 - 199 mg/dL [facility] Comment: Supplemental ranges: <140 mg/dL before meals <180 mg/dL all other times of the day Blood 08/30/2022 7:58 PM EDT 08/30/2022 7:58 PM EDT Alfonso Navarrete MD POINT OF CARE TEST O RDERABLES Performing Organization Address City/[facility]/ZIP Co de Phone Number [facility] [place] [address] * POCT Glucose (08/30/2022 4:59 PM EDT) Glucose, POC 169 65 - 199 mg/dL [facility] Comment: Supplemental ranges: <140 mg/dL before meals <180 mg/dL all other times of the day Blood 08/30/2022 4:59 PM EDT 08/30/2022 4:59 PM EDT Roland Pruett MD POINT OF CARE TEST O RDERAREYMUNDO Performing Organization Address [facility] Co de Phone Number [facility] [place] [address] * POCT Glucose (08/30/2022 11:29 AM EDT) Glucose, POC 168 65 - 199 mg/dL [facility] Comment: Supplemental ranges: <140 mg/dL before meals <180 mg/dL all other times of the day Blood 08/30/2022 11:2 9 AM EDT 08/30/2022 11:29 AM EDT Roland Pruett MD POINT OF CARE TEST O RDERABLES Performing Organization Address [facility] Co de Phone Number [facility] [place] [address] * POCT Glucose (08/30/2022 8:59 AM EDT) Glucose, POC 160 65 - 199 mg/dL [facility] Comment: Supplemental ranges: <140 mg/dL before meals <180 mg/dL all other times of the day Blood 08/30/2022 8:59 AM EDT 08/30/2022 8:59 AM EDT Roland Pruett MD POINT OF CARE TEST O RDERABLES Performing Organization Address City/[facility]/[place] [address] * Differential, Automated (08/30/2022 4:05 AM EDT) Neutrophil % 61.4 % [facility] Neutrophil Absolute 4.26 1.70 - 6.10 x10(3)/[facility] Lymph % 24.7 % [facility] Lymphocytes Abs 1.7 0.9 - 3.2 x10(3)/[facility] Monocyte % 7.6 % [facility] Monocyte Abs 0.5 0.3 - 0.9 x10(3)/[facility] Eos % 4.7 % [facility] Eosinophils Abs 0.3 0.0 - 0.4 x10(3)/[facility] Basophil % 1.2 % [facility] Baso Absolute 0.1 0.0 - 0.1 x10(3)/[facility] Immature Gran % 0.40 % [facility] Comment: Immature granulocytes(IG's)percentage and absolute count will include metamyelocytes, myelocytes, and promyelocytes. Blood smears from CBCs yielding IG's will be scanned manually for concordance. If this scan disagrees with the automated IG or if promyelocytes are noted, a manual differential will be performed. Immature Gran Absolute 0.03 0.00 - 0.04 x10(3)/[facility] Blood 08/30/2022 4:05 AM EDT 08/30/2022 4:13 AM EDT Narrative Resulting Agency Comment Spec In Lab Roland Pruett MD HEMATOLOGY ORDERABLE S Performing Organization Address City/[facility]/[place] [address] * (ABNORMAL) Hemogram (08/30/2022 4:05 AM EDT) White Blood Cell 7.0 4.0 - 9.5 x10(3)/mc L [facility] Red Blood Cell 3.81(L) 4.00 - 5.21 x10(6)/mc L [facility] Hemoglobin 8.4(L) 11.7 - 15.5 g/dL [facility] Hematocrit 27.8(L) 35.7 - 45.8 % [facility] Mean Cell Volume 73.0(L) 82.6 - 94.4 fL [facility] Mean Cell Hemoglobin 22.0(L) 27.1 - 32.0 pg [facility] Mean Cell Hemoglobin Concentration 30.2(L) 31.7 - 35.0 g/dL [facility] Platelet 407(H) 145 - 357 x10(3)/mc L [facility] RDW Standard Deviation Not Measured 37.0 - 46.0 fL [facility] RDW coefficient of variation Not Measured 11.5 - 14.1 % [facility] Mean Platelet Volume 9.4 7.6 - 12.9 fL [facility] NRBC% auto 0.0 % [facility] NRBC Absolute 0.000 0.000 - 0.000 x10(3)/mc L [facility] Blood 08/30/2022 4:05 AM EDT 08/30/2022 4:13 AM EDT Narrative Resulting Agency Comment Spec In Lab Roland Pruett MD HEMATOLOGY ORDERABLE S [facility] [place] [address] * Phosphorus (08/30/2022 4:05 AM EDT) Phosphorus 3.7 2.5 - 4.5 mg/dL [facility] Blood 08/30/2022 4:05 AM EDT 08/30/2022 4:13 AM EDT Narrative Resulting Agency Comment Spec In Lab Roland Pruett MD CHEMISTRY ORDERABLES [facility] [place] [address] * Magnesium (08/30/2022 4:05 AM EDT) Magnesium 0.90 0.69 - 1.07 mmol/L [facility] Blood 08/30/2022 4:05 AM EDT 08/30/2022 4:13 AM EDT Narrative Resulting Agency Comment Spec In Lab Roland Pruett MD CHEMISTRY ORDERABLES Performing Organization Address City/State/[facility] Co de Phone Number [facility] [place] [address] * (ABNORMAL) Basic Metabolic Panel (non-fasting) (08/30/2022 4:05 AM EDT) Glucose 133 65 - 199 mg/dL [facility] Comment:Diabetes: >=200 mg/d L plus symptoms Blood Urea Nitrogen 19(H) 8 - 18 mg/dL [facility] Creatinine 0.50(L) 0.70 - 1.20 mg/dL [facility] Sodium 140 135 - 145 mmol/L [facility] Potassium 4.1 3.5 - 5.0 mmol/L [facility] Comment: Please note: ??Patients with WBC >100,000 may have falsely elevated Potassium levels. ??For accurate Potassium quantification in these patients send serum separator tube (gold top) for subsequent determinations. ??Contact the Clinical Chemistry Laboratory if there are any questions. Chloride 104 98 - 107 mmol/L [facility] Carbon Dioxide 28 22 - 31 mmol/L [facility] Anion Gap 8 5 - 15 mmol/L [facility] Calcium 9.4 8.5 - 10.5 mg/dL [facility] Est Glomerular Filtration Rate 106 >=60 mL/min/1. 73 m?? [facility] Comment: This patient's estimated GFR was [...] Pruett MD CHEMISTRY ORDERABLES Performing Organization Address City/[facility]/ZIP Co de Phone Number [facility] [place] [address] * POCT Glucose (08/30/2022 4:00 AM EDT) Glucose, POC 128 65 - 199 mg/dL [facility] Comment: Supplemental ranges: <140 mg/dL before meals <180 mg/dL all other times of the day Blood 08/30/2022 4:00 AM EDT 08/30/2022 4:00 AM EDT Roland Pruett MD POINT OF CARE TEST O RDERABLES Performing Organization Address [facility]/ZIP Co de Phone Number [facility] [place] [address] * POCT Glucose (08/29/2022 11:58 PM EDT) Glucose, POC 155 65 - 199 mg/dL [facility] Comment: Supplemental ranges: <140 mg/dL before meals <180 mg/dL all other times of the day Blood 08/29/2022 11:5 8 PM EDT 08/29/2022 11:58 PM EDT Roland Pruett MD POINT OF CARE TEST O RDERABLES Performing Organization Address City/[facility]/ZIP Co de Phone Number [facility] [place] [address] * POCT Glucose (08/29/2022 8:16 PM EDT) Glucose, POC 146 65 - 199 mg/dL [facility] Comment: Supplemental ranges: <140 mg/dL before meals <180 mg/dL all other times of the day Blood 08/29/2022 8:16 PM EDT 08/29/2022 8:16 PM EDT Roland Pruett MD POINT OF CARE TEST O RDERABLES Performing Organization Address [facility] Co de Phone Number [facility] [place] [address] * POCT Glucose (08/29/2022 4:08 PM EDT) Glucose, POC 194 65 - 199 mg/dL [facility] Comment: Supplemental ranges: <140 mg/dL before meals <180 mg/dL all other times of the day Blood 08/29/2022 4:08 PM EDT 08/29/2022 4:08 PM EDT Roland Pruett MD POINT OF CARE TEST O RDERABLES Performing Organization Address [facility] Co de Phone Number [facility] [place] [address] * Valproic Acid Level, Total (08/29/2022 11:35 AM EDT) Valproic Acid 25 mg/L [facility] Comment: Therapeutic Range: Anticonvulsant Therapy: ??50-100 mg/L Manic Episodes Associated with Bipolar Disorder: ??50-125 mg/L Blood 08/29/2022 11:3 5 AM EDT 08/29/2022 11:44 AM EDT Narrative Resulting Agency Comment Spec In Lab Roland Pruett MD CHEMISTRY ORDERABLES Performing Organization Address [facility] Co de Phone Number [facility] [place] [address] * (ABNORMAL) POCT Glucose (08/29/2022 11:34 AM EDT) Glucose, POC 209(H) 65 - 199 mg/dL [facility] Comment: Supplemental ranges: <140 mg/dL before meals <180 mg/dL all other times of the day Blood 08/29/2022 11:3 4 AM EDT 08/29/2022 11:34 AM EDT Roland Pruett MD POINT OF CARE TEST O RDERABLES Performing Organization Address City/[facility]/ZIP Co de Phone Number [facility] [place] [address] * Differential, Automated (08/29/2022 9:30 AM EDT) Neutrophil % 72.4 % [facility] Neutrophil Absolute 5.42 1.70 - 6.10 x10(3)/[facility] Lymph % 16.8 % [facility] Lymphocytes Abs 1.3 0.9 - 3.2 x10(3)/[facility] Monocyte % 6.5 % [facility] Monocyte Abs 0.5 0.3 - 0.9 x10(3)/[facility] Eos % 3.2 % [facility] Eosinophils Abs 0.2 0.0 - 0.4 x10(3)/[facility] Basophil % 0.8 % [facility] Baso Absolute 0.1 0.0 - 0.1 x10(3)/[facility] Immature Gran % 0.30 % [facility] Comment: Immature granulocytes(IG's)percentage and absolute count will include metamyelocytes, myelocytes, and promyelocytes. Blood smears from CBCs yielding IG's will be scanned manually for concordance. If this scan disagrees with the automated IG or if promyelocytes are noted, a manual differential will be performed. Immature Gran Absolute 0.02 0.00 - 0.04 x10(3)/[facility] Blood 08/29/2022 9:30 AM EDT 08/29/2022 9:31 AM EDT Narrative Resulting Agency Comment Spec In Lab Tyler Cobb MD HEMATOLOGY ORDERABLE S Performing Organization Address City/[facility]/[place] [address] * (ABNORMAL) Hemogram (08/29/2022 9:30 AM EDT) White Blood Cell 7.5 4.0 - 9.5 x10(3)/mc L [facility] Red Blood Cell 4.01 4.00 - 5.21 x10(6)/mc L [facility] Comment:Dimorphic RBC popula tion. Hemoglobin 8.7(L) 11.7 - 15.5 g/dL [facility] Hematocrit 28.5(L) 35.7 - 45.8 % [facility] Mean Cell Volume 71.1(L) 82.6 - 94.4 fL [facility] Mean Cell Hemoglobin 21.7(L) 27.1 - 32.0 pg [facility] Mean Cell Hemoglobin Concentration 30.5(L) 31.7 - 35.0 g/dL [facility] Platelet 448(H) 145 - 357 x10(3)/mc L [facility] RDW Standard Deviation Not Measured 37.0 - 46.0 fL [facility] RDW coefficient of variation Not Measured 11.5 - 14.1 % [facility] Mean Platelet Volume 9.5 7.6 - 12.9 fL [facility] NRBC% auto 0.0 % [facility] NRBC Absolute 0.000 0.000 - 0.000 x10(3)/mc L [facility] Blood 08/29/2022 9:30 AM EDT 08/29/2022 9:31 AM EDT Narrative Resulting Agency Comment Spec In Lab Tyler Cobb MD HEMATOLOGY ORDERABLE S [facility] [place] [address] * Phosphorus (08/29/2022 9:30 AM EDT) Phosphorus 3.4 2.5 - 4.5 mg/dL [facility] Blood 08/29/2022 9:30 AM EDT 08/29/2022 9:31 AM EDT Narrative Resulting Agency Comment Spec In Lab Richard Pascal MD CHEMISTRY ORDERABLES [facility] [place] [address] * Magnesium (08/29/2022 9:30 AM EDT) Magnesium 0.81 0.69 - 1.07 mmol/L [facility] Blood 08/29/2022 9:30 AM EDT 08/29/2022 9:31 AM EDT Narrative Resulting Agency Comment Spec In Lab Richard Pascal MD CHEMISTRY ORDERABLES Performing Organization Address City/State/[facility] Co de Phone Number [facility] [place] [address] * (ABNORMAL) Basic Metabolic Panel (non-fasting) (08/29/2022 9:30 AM EDT) Glucose 289(H) 65 - 199 mg/dL [facility] Comment:Diabetes: >=200 mg/d L plus symptoms Blood Urea Nitrogen 19(H) 8 - 18 mg/dL [facility] Creatinine 0.47(L) 0.70 - 1.20 mg/dL [facility] Sodium 137 135 - 145 mmol/L [facility] Potassium 4.4 3.5 - 5.0 mmol/L [facility] Comment: Please note: ??Patients with WBC >100,000 may have falsely elevated Potassium levels. ??For accurate Potassium quantification in these patients send serum separator tube (gold top) for subsequent determinations. ??Contact the Clinical Chemistry Laboratory if there are any questions. Chloride 103 98 - 107 mmol/L [facility] Carbon Dioxide 25 22 - 31 mmol/L [facility] Anion Gap 9 5 - 15 mmol/L [facility] Calcium 9.2 8.5 - 10.5 mg/dL [facility] Est Glomerular Filtration Rate 108 >=60 mL/min/1. 73 m?? [facility] Comment: This patient's estimated GFR was [...] CHEMISTRY ORDERABLES Performing Organization Address [facility] Co de Phone Number [facility] [place] [address] * (ABNORMAL) POCT Glucose (08/29/2022 9:13 AM EDT) Glucose, POC 279(H) 65 - 199 mg/dL [facility] Comment: Supplemental ranges: <140 mg/dL before meals <180 mg/dL all other times of the day Blood 08/29/2022 9:13 AM EDT 08/29/2022 9:13 AM EDT Roland Pruett MD POINT OF CARE TEST O RDERABLES Performing Organization Address [facility]/ZIP Co de Phone Number [facility] [place] [address] * Lipid Panel (Reflex Direct LDL) (08/29/2022 4:48 AM EDT) Cholesterol, Total 110 mg/dL [facility] Comment: Lower Risk: <200 mg/dL Average Risk: 200-239 mg/dL Higher Risk: >dd=927 mg/dL Triglyceride 127 mg/dL [facility] Comment: Average Risk/Lower Risk: <150 mg/dL Borderline High Risk: 150-199 mg/dL High Risk: 200-499 mg/dL Very High Risk: >gd=903 mg/dL HDL Cholesterol 34 mg/dL [facility] Comment: Males: ?? Higher Risk: <40 mg/dL Females: ?? Higher Risk: <50 mg/dL LDL Cholesterol 51 mg/dL [facility] Comment: Lowest Risk: <100 mg/dL Lower Risk: 100-129 mg/dL Borderline High Risk: 130-159 mg/dL High Risk: 160-189 mg/dL Very High Risk: >ug=168 mg/dL Cholesterol/HDL Ratio 3.2 ratio [facility] Lipid Interpretation See Note [facility] Comment: Lipid management should be guided by a patient? s ASCVD risk, goals and preferences. ACC/AHA Guidelines recommend high intensity statin if clinical ASCVD or LDL greater than or equal to 190 mg/dL. [email or web address] Adults aged 40-75 with LDL 70-189 mg/dL should have their 10 year ASCVD risk estimated with the ACC/AHA ASCVD risk traffic enumerator http://tools.acc.org/NODQO-Mxbz-Ivtvegvat/ Statin should be discussed if risk greater [...] In Lab Milagros Hernandez MD CHEMISTRY ORDERABLES [facility] [place] [address] * Valproic Acid Level, Total (08/29/2022 4:48 AM EDT) Valproic Acid 29 mg/L [facility] Comment: Therapeutic Range: Anticonvulsant Therapy: ??50-100 mg/L Manic Episodes Associated with Bipolar Disorder: ??50-125 mg/L Blood 08/29/2022 4:48 AM EDT 08/29/2022 4:58 AM EDT Narrative Resulting Agency Comment Spec In Lab Milagros Hernandez MD CHEMISTRY ORDERABLES [facility] [place] [address] * POCT Glucose (08/29/2022 3:53 AM EDT) Glucose, POC 152 65 - 199 mg/dL [facility] Comment: Supplemental ranges: <140 mg/dL before meals <180 mg/dL all other times of the day Blood 08/29/2022 3:53 AM EDT 08/29/2022 3:53 AM EDT Milagros Hernandez MD POINT OF CARE TEST O GABRIELLA Performing Organization Address City/[facility] Co de Phone Number [facility] [place] [address] * POCT Glucose (08/29/2022 12:13 AM EDT) Glucose, POC 153 65 - 199 mg/dL [facility] Comment: Supplemental ranges: <140 mg/dL before meals <180 mg/dL all other times of the day Blood 08/29/2022 12:1 3 AM EDT 08/29/2022 12:13 AM EDT Milagros Hernandez MD POINT OF CARE TEST O GABRIELLA Performing Organization Address [facility] Co de Phone Number [facility] [place] [address] * (ABNORMAL) POCT Glucose (08/28/2022 7:38 PM EDT) Glucose, POC 211(H) 65 - 199 mg/dL [facility] Comment: Supplemental ranges: <140 mg/dL before meals <180 mg/dL all other times of the day Blood 08/28/2022 7:38 PM EDT 08/28/2022 7:38 PM EDT Milagros Hernandez MD POINT OF CARE TEST O GABRIELLA Performing Organization Address City/[facility] Co de Phone Number [facility] [place] [address] * POCT Glucose (08/28/2022 4:33 PM EDT) Glucose, POC 196 65 - 199 mg/dL [facility] Comment: Supplemental ranges: <140 mg/dL before meals <180 mg/dL all other times of the day Blood 08/28/2022 4:33 PM EDT 08/28/2022 4:33 PM EDT Milagros Hernandez MD POINT OF CARE TEST O RDERABLES Performing Organization Address [facility] Co de Phone Number [facility] [place] [address] * (ABNORMAL) POCT Glucose (08/28/2022 12:06 PM EDT) Glucose, POC 221(H) 65 - 199 mg/dL [facility] Comment: Supplemental ranges: <140 mg/dL before meals <180 mg/dL all other times of the day Blood 08/28/2022 12:0 6 PM EDT 08/28/2022 12:06 PM EDT Milagros Hernandez MD POINT OF CARE TEST O RDERAREYMUNDO Performing Organization Address [facility] Co de Phone Number [facility] [place] [address] * Differential, Automated (08/28/2022 7:00 AM EDT) Neutrophil % 65.3 % [facility] Neutrophil Absolute 5.85 1.70 - 6.10 x10(3)/[facility] LAB[facility] Lymph % 23.3 % [facility] Lymphocytes Abs 2.1 0.9 - 3.2 x10(3)/[facility] Monocyte % 6.8 % [facility] Monocyte Abs 0.6 0.3 - 0.9 x10(3)/[facility] Eos % 3.3 % [facility] Eosinophils Abs 0.3 0.0 - 0.4 x10(3)/[facility] Basophil % 0.9 % [facility] Baso Absolute 0.1 0.0 - 0.1 x10(3)/[facility] Immature Gran % 0.40 % [facility] Comment: Immature granulocytes(IG's)percentage and absolute count will include metamyelocytes, myelocytes, and promyelocytes. Blood smears from CBCs yielding IG's will be scanned manually for concordance. If this scan disagrees with the automated IG or if promyelocytes are noted, a manual differential will be performed. Immature Gran Absolute 0.04 0.00 - 0.04 x10(3)/mcL [facility] Blood 08/28/2022 7:00 AM EDT 08/28/2022 7:04 AM EDT Narrative Resulting Agency Comment Spec In Lab Tyler Cobb MD HEMATOLOGY ORDERABLE S [facility] [place] [address] * (ABNORMAL) Hemogram (08/28/2022 7:00 AM EDT) White Blood Cell 9.0 4.0 - 9.5 x10(3)/mc L [facility] Red Blood Cell 3.90(L) 4.00 - 5.21 x10(6)/ L [facility] Comment:Dimorphic RBC popula tion. Hemoglobin 8.6(L) 11.7 - 15.5 g/dL [facility] Hematocrit 27.4(L) 35.7 - 45.8 % [facility] Mean Cell Volume 70.3(L) 82.6 - 94.4 fL [facility] Mean Cell Hemoglobin 22.1(L) 27.1 - 32.0 pg [facility] Mean Cell Hemoglobin Concentration 31.4(L) 31.7 - 35.0 g/dL [facility] Platelet 464(H) 145 - 357 x10(3)/mc L [facility] RDW Standard Deviation Not Measured 37.0 - 46.0 fL [facility] RDW coefficient of variation Not Measured 11.5 - 14.1 % [facility] Mean Platelet Volume 9.5 7.6 - 12.9 fL [facility] NRBC% auto 0.0 % [facility] NRBC Absolute 0.000 0.000 - 0.000 x10(3)/mc L [facility] Blood 08/28/2022 7:00 AM EDT 08/28/2022 7:04 AM EDT Narrative Resulting Agency Comment Spec In Lab Tyler Cobb MD HEMATOLOGY ORDERABLE S Performing Organization Address [facility] Co de Phone Number [facility] [place] [address] * (ABNORMAL) Phosphorus (08/28/2022 7:00 AM EDT) Phosphorus 4.6(H) 2.5 - 4.5 mg/dL [facility] Blood 08/28/2022 7:00 AM EDT 08/28/2022 7:04 AM EDT Narrative Resulting Agency Comment Spec In Lab Richard Pascal MD CHEMISTRY ORDERABLES Performing Organization Address [facility] Co de Phone Number [facility] [place] [address] * Magnesium (08/28/2022 7:00 AM EDT) Magnesium 0.87 0.69 - 1.07 mmol/L [facility] Blood 08/28/2022 7:00 AM EDT 08/28/2022 7:04 AM EDT Narrative Resulting Agency Comment Spec In Lab Richard Pascal MD CHEMISTRY ORDERABLES Performing Organization Address [facility] Phone Number [facility] [place] [address] * (ABNORMAL) Basic Metabolic Panel (non-fasting) (08/28/2022 7:00 AM EDT) Glucose 113 65 - 199 mg/dL [facility] Comment:Diabetes: >=200 mg/d L plus symptoms Blood Urea Nitrogen 15 8 - 18 mg/dL [facility] Creatinine 0.46(L) 0.70 - 1.20 mg/dL [facility] Sodium 141 135 - 145 mmol/L [facility] Potassium 4.2 3.5 - 5.0 mmol/L [facility] Comment: Please note: ??Patients with WBC >100,000 may have falsely elevated Potassium levels. ??For accurate Potassium quantification in these patients send serum separator tube (gold top) for subsequent determinations. ??Contact the Clinical Chemistry Laboratory if there are any questions. Chloride 105 98 - 107 mmol/L [facility] Carbon Dioxide 27 22 - 31 mmol/L [facility] Anion Gap 9 5 - 15 mmol/L [facility] Calcium 9.4 8.5 - 10.5 mg/dL [facility] Est Glomerular Filtration Rate 108 >=60 mL/min/1. 73 m?? [facility] Comment: This patient's estimated GFR was [...] Pascal MD CHEMISTRY ORDERABLES Performing Organization Address City/[facility]/ZIP Co de Phone Number [facility] [place] [address] * POCT Glucose (08/28/2022 4:59 AM EDT) Glucose, POC 96 65 - 199 mg/dL [facility] Comment: Supplemental ranges: <140 mg/dL before meals <180 mg/dL all other times of the day Blood 08/28/2022 4:59 AM EDT 08/28/2022 4:59 AM EDT Milagros Hernandez MD POINT OF CARE TEST O RDERABLES Performing Organization Address City/[facility]/ZIP Co de Phone Number [facility] [place] [address] * POCT Glucose (08/28/2022 12:08 AM EDT) Glucose, POC 91 65 - 199 mg/dL [facility] Comment: Supplemental ranges: <140 mg/dL before meals <180 mg/dL all other times of the day Blood 08/28/2022 12:0 8 AM EDT 08/28/2022 12:08 AM EDT Milagros Hernandez MD POINT OF CARE TEST O GABRIELLA [facility] [place] [address] * POCT Glucose (08/27/2022 9:50 PM EDT) Glucose, POC 140 65 - 199 mg/dL [facility] Comment: Supplemental ranges: <140 mg/dL before meals <180 mg/dL all other times of the day Blood 08/27/2022 9:50 PM EDT 08/27/2022 9:50 PM EDT Milagros Hernandez MD POINT OF CARE TEST Chepe QUIROZ Performing Organization Address [facility] Co de Phone Number [facility] [place] [address] * Potassium (08/27/2022 6:00 PM EDT) [facility] Potassium 4.0 3.5 - 5.0 mmol/L [facility] Comment: Please note: ??Patients with WBC [...] Pascal MD CHEMISTRY ORDERABLES Performing Organization Address City/[facility]/ZIP Co de Phone Number [facility] [place] [address] * POCT Glucose (08/27/2022 4:55 PM EDT) Glucose, POC 149 65 - 199 mg/dL [facility] Comment: Supplemental ranges: <140 mg/dL before meals <180 mg/dL all other times of the day Blood 08/27/2022 4:55 PM EDT 08/27/2022 4:55 PM EDT Milagros Hernandez MD POINT OF CARE TEST O GABRIELLA Performing Organization Address City/[facility]/ZIP Co de Phone Number [facility] [place] [address] * Potassium (08/27/2022 1:55 PM EDT) [facility] Potassium 4.3 3.5 - 5.0 mmol/L [facility] Comment: Please note: ??Patients with WBC [...] CHEMISTRY ORDERABLES Performing Organization Address [facility] Co de Phone Number [facility] [place] [address] * POCT Glucose (08/27/2022 11:32 AM EDT) Glucose, POC 141 65 - 199 mg/dL [facility] Comment: Supplemental ranges: <140 mg/dL before meals <180 mg/dL all other times of the day Blood 08/27/2022 11:3 2 AM EDT 08/27/2022 11:32 AM EDT Milagros Hernandez MD POINT OF CARE TEST O GABRIELLA Performing Organization Address City/[facility] Co de Phone Number [facility] [place] [address] * Potassium (08/27/2022 9:50 AM EDT) Potassium 4.4 3.5 - 5.0 mmol/L [facility] Comment: Please note: ??Patients with WBC >100,000 may have falsely elevated Potassium levels. ??For accurate Potassium quantification in these patients send serum separator tube (gold top) for subsequent determinations. ??Contact the Clinical Chemistry Laboratory if there are any questions. Blood 08/27/2022 9:50 AM EDT 08/27/2022 10:05 AM EDT Narrative Resulting Agency Comment Spec In Lab Richard Pascal MD CHEMISTRY ORDERABLES [facility] [address] * CT Chest wo Contrast (Generic) (08/27/2022 [...] who have questions please contact the health patient care technician instructor that requested your imaging first. ? Narrative [...] patients who have questions please contactthe health patient care technician instructor that requested your imaging first. Milagros Hernandez MD [facility] [place]LES * CT Angiogram Coronary Arteries [...] who have questions please contact the health patient care technician instructor that requested your imaging first. ? Narrative [...] patients who have questions please contactthe health patient care technician instructor that requested your imaging first. Electronically signed by: Arlette Mays MD, [facility] ([phone]), at 08/27/2022 11:39 AM Milagros Hernandez MD IMG CT ORDERABLES * POCT Glucose (08/27/2022 7:38 AM EDT) Glucose, POC 114 65 - 199 mg/dL [facility] Comment: Supplemental ranges: <140 mg/dL before meals <180 mg/dL all other times of the day Blood 08/27/2022 7:38 AM EDT 08/27/2022 7:38 AM EDT Milagros Hernandez MD POINT OF CARE TEST O RDERABLES Performing Organization Address City/State/[facility] Co de Phone Number [facility] [place] [address] * (ABNORMAL) Differential, Automated (08/27/2022 5:40 AM EDT) [facility] Neutrophil % 69.4 % [facility] Neutrophil Absolute 6.61(H) 1.70 - 6.10 x10(3)/mc L [facility] Lymph % 18.6 % [facility] Lymphocytes Abs 1.8 0.9 - 3.2 x10(3)/mc L [facility] Monocyte % 7.7 % [facility] Monocyte Abs 0.7 0.3 - 0.9 x10(3)/mc L [facility] Eos % 3.2 % [facility] Eosinophils Abs 0.3 0.0 - 0.4 x10(3)/mc L [facility] Basophil % 0.7 % [facility] Baso Absolute 0.1 0.0 - 0.1 x10(3)/mc L [facility] Immature Gran % 0.40 % [facility] Comment: Immature granulocytes(IG's)percentage and absolute count will include metamyelocytes, myelocytes, and promyelocytes. Blood smears from CBCs yielding IG's will be scanned manually for concordance. If this scan disagrees with the automated IG or if promyelocytes are noted, a manual differential will be performed. Immature Gran Absolute 0.04 0.00 - 0.04 x10(3)/ L [facility] Blood 08/27/2022 5:40 AM EDT 08/27/2022 5:44 AM EDT Narrative Resulting Agency Comment Spec In Lab Tyler Cobb MD HEMATOLOGY ORDERABLE S [facility] [place] [address] * (ABNORMAL) Hemogram (08/27/2022 5:40 AM EDT) White Blood Cell 9.5 4.0 - 9.5 x10(3)/[facility] LABORATORY Red Blood Cell 3.92(L) 4.00 - 5.21 x10(6)/[facility] Comment:Dimorphic RBC popula tion. Hemoglobin 8.6(L) 11.7 - 15.5 g/dL [facility] Hematocrit 27.7(L) 35.7 - 45.8 % [facility] Mean Cell Volume 70.7(L) 82.6 - 94.4 fL [facility] Mean Cell Hemoglobin 21.9(L) 27.1 - 32.0 pg [facility] Mean Cell Hemoglobin Concentration 31.0(L) 31.7 - 35.0 g/dL [facility] Platelet 528(H) 145 - 357 x10(3)/[facility] LAB[facility]ATORY RDW Standard Deviation Not Measured 37.0 - 46.0 fL [facility] RDW coefficient of variation Not Measured 11.5 - 14.1 % [facility] Mean Platelet Volume 9.7 7.6 - 12.9 fL [facility] NRBC% auto 0.0 % [facility] NRBC Absolute 0.000 0.000 - 0.000 x10(3)/ L [facility] Blood 08/27/2022 5:40 AM EDT 08/27/2022 5:44 AM EDT Narrative Resulting Agency Comment Spec In Lab Tyler Cobb MD HEMATOLOGY ORDERABLE S Performing Organization Address [facility] Co de Phone Number [facility] [place] [address] * Phosphorus (08/27/2022 5:40 AM EDT) Phosphorus 3.7 2.5 - 4.5 mg/dL [facility] Blood 08/27/2022 5:40 AM EDT 08/27/2022 5:44 AM EDT Narrative Resulting Agency Comment Spec In Lab Richard Pascal MD CHEMISTRY ORDERABLES Performing Organization Address [facility] Co de Phone Number [facility] [place] [address] * Magnesium (08/27/2022 5:40 AM EDT) Magnesium 0.85 0.69 - 1.07 mmol/L [facility] Blood 08/27/2022 5:40 AM EDT 08/27/2022 5:44 AM EDT Narrative Resulting Agency Comment Spec In Lab Richard Pascal MD CHEMISTRY ORDERABLES Performing Organization Address [facility] de Phone Number [facility] [place] [address] * (ABNORMAL) Basic Metabolic Panel (non-fasting) (08/27/2022 5:40 AM EDT) Glucose 130 65 - 199 mg/dL [facility] Comment:Diabetes: >=200 mg/d L plus symptoms Blood Urea Nitrogen 15 8 - 18 mg/dL [facility] Creatinine 0.44(L) 0.70 - 1.20 mg/dL [facility] Sodium 139 135 - 145 mmol/L [facility] Potassium 4.4 3.5 - 5.0 mmol/L [facility] Comment: Please note: ??Patients with WBC >100,000 may have falsely elevated Potassium levels. ??For accurate Potassium quantification in these patients send serum separator tube (gold top) for subsequent determinations. ??Contact the Clinical Chemistry Laboratory if there are any questions. Chloride 106 98 - 107 mmol/L [facility] Carbon Dioxide 27 22 - 31 mmol/L [facility] Anion Gap 6 5 - 15 mmol/L [facility] Calcium 9.3 8.5 - 10.5 mg/dL [facility] Est Glomerular Filtration Rate 109 >=60 mL/min/1. 73 m?? [facility] Comment: This patient's estimated GFR was [...] In Lab Richard Pascal MD CHEMISTRY ORDERABLES [facility] [place] [address] * POCT Glucose (08/27/2022 5:19 AM EDT) Glucose, POC 124 65 - 199 mg/dL [facility] Comment: Supplemental ranges: <140 mg/dL before meals <180 mg/dL all other times of the day Blood 08/27/2022 5:19 AM EDT 08/27/2022 5:19 AM EDT Milagros Hernandez MD POINT OF CARE TEST O RDERABLES [facility] [place] [address] * POCT Glucose (08/26/2022 11:27 PM EDT) Glucose, POC 162 65 - 199 mg/dL [facility] Comment: Supplemental ranges: <140 mg/dL before meals <180 mg/dL all other times of the day Blood 08/26/2022 11:2 7 PM EDT 08/26/2022 11:27 PM EDT Milagros Hernandez MD POINT OF CARE TEST O RDERAREYMUNDO Performing Organization Address City/[facility] Co de Phone Number [facility] [place] [address] * POCT Glucose (08/26/2022 8:05 PM EDT) Glucose, POC 138 65 - 199 mg/dL [facility] Comment: Supplemental ranges: <140 mg/dL before meals <180 mg/dL all other times of the day Blood 08/26/2022 8:05 PM EDT 08/26/2022 8:05 PM EDT Milagros Hernandez MD POINT OF CARE TEST O HUGHERAREYMUNDO Performing Organization Address [facility] Co de Phone Number [facility] [place] [address] * POCT Glucose (08/26/2022 4:51 PM EDT) Glucose, POC 111 65 - 199 mg/dL [facility] Comment: Supplemental ranges: <140 mg/dL before meals <180 mg/dL all other times of the day Blood 08/26/2022 4:51 PM EDT 08/26/2022 4:51 PM EDT Milagros Hernandez MD POINT OF CARE TEST O HUGHERAREYMUNDO Performing Organization Address City/[facility] Co de Phone Number [facility] [place] [address] * POCT Glucose (08/26/2022 1:13 PM EDT) Glucose, POC 151 65 - 199 mg/dL [facility] Comment: Supplemental ranges: <140 mg/dL before meals <180 mg/dL all other times of the day Blood 08/26/2022 1:13 PM EDT 08/26/2022 1:13 PM EDT Milagros Hernandez MD POINT OF CARE TEST O GABRIELLA Performing Organization Address [facility] Co de Phone Number [facility] [place] [address] * POCT Glucose (08/26/2022 11:28 AM EDT) Glucose, POC 130 65 - 199 mg/dL [facility] Comment: Supplemental ranges: <140 mg/dL before meals <180 mg/dL all other times of the day Blood 08/26/2022 11:2 8 AM EDT 08/26/2022 11:28 AM EDT Milagros Hernandez MD POINT OF CARE TEST O GABRIELLA Performing Organization Address [facility] Co de Phone Number [facility] [place] [address] * (ABNORMAL) POCT Glucose (08/26/2022 7:58 AM EDT) Glucose, POC 202(H) 65 - 199 mg/dL [facility] Comment: Supplemental ranges: <140 mg/dL before meals <180 mg/dL all other times of the day Blood 08/26/2022 7:58 AM EDT 08/26/2022 7:58 AM EDT Milagros Hernandez MD POINT OF CARE TEST O GABRIELLA Performing Organization Address [facility] Co de Phone Number [facility] [place] [address] * POCT Glucose (08/26/2022 4:42 AM EDT) Glucose, POC 160 65 - 199 mg/dL [facility] Comment: Supplemental ranges: <140 mg/dL before meals <180 mg/dL all other times of the day Blood 08/26/2022 4:42 AM EDT 08/26/2022 4:42 AM EDT Milagros Hernandez MD POINT OF CARE TEST O RDERABLES Performing Organization Address City/[facility]/[place] [address] * (ABNORMAL) Differential, Automated (08/26/2022 12:22 AM EDT) Neutrophil % 67.5 % [facility] Neutrophil Absolute 6.01 1.70 - 6.10 x10(3)/[facility] LABORATORY Lymph % 18.8 % [facility] Lymphocytes Abs 1.7 0.9 - 3.2 x10(3)/[facility] Monocyte % 8.9 % [facility] Monocyte Abs 0.8 0.3 - 0.9 x10(3)/[facility] Eos % 3.3 % [facility] Eosinophils Abs 0.3 0.0 - 0.4 x10(3)/[facility] Basophil % 0.7 % [facility] Baso Absolute 0.1 0.0 - 0.1 x10(3)/[facility] Immature Gran % 0.80 % [facility] Comment: Immature granulocytes(IG's)percentage and absolute count will include metamyelocytes, myelocytes, and promyelocytes. Blood smears from CBCs yielding IG's will be scanned manually for concordance. If this scan disagrees with the automated IG or if promyelocytes are noted, a manual differential will be performed. Immature Gran Absolute 0.07(H) 0.00 - 0.04 x10(3)/[facility] Blood 08/26/2022 12:2 2 AM EDT 08/26/2022 12:30 AM EDT Narrative Resulting Agency Comment Spec In Lab Tyler Cobb MD [place] [address] * (ABNORMAL) Hemogram (08/26/2022 12:22 AM EDT) White Blood Cell 8.9 4.0 - 9.5 x10(3)/[facility] Red Blood Cell 3.80(L) 4.00 - 5.21 x10(6)/mc L [facility] Comment:Dimorphic RBC popula tion. Hemoglobin 8.3(L) 11.7 - 15.5 g/dL [facility] Hematocrit 26.6(L) 35.7 - 45.8 % [facility] Mean Cell Volume 70.0(L) 82.6 - 94.4 fL [facility] Mean Cell Hemoglobin 21.8(L) 27.1 - 32.0 pg [facility] Mean Cell Hemoglobin Concentration 31.2(L) 31.7 - 35.0 g/dL [facility] Platelet 456(H) 145 - 357 x10(3)/ L [facility] RDW Standard Deviation Not Measured 37.0 - 46.0 fL [facility] RDW coefficient of variation Not Measured 11.5 - 14.1 % [facility] Mean Platelet Volume 9.9 7.6 - 12.9 fL [facility] NRBC% auto 0.0 % [facility] NRBC Absolute 0.000 0.000 - 0.000 x10(3)/[facility] Blood 08/26/2022 12:2 2 AM EDT 08/26/2022 12:30 AM EDT Narrative Resulting Agency Comment Spec In Lab Tyler Cobb MD HEMATOLOGY ORDERABLE S [facility] [place] [address] * (ABNORMAL) Basic Metabolic Panel (non-fasting) (08/26/2022 12:22 AM EDT) Glucose 195 65 - 199 mg/dL [facility] Comment:Diabetes: >=200 mg/d L plus symptoms Blood Urea Nitrogen 12 8 - 18 mg/dL [facility] Creatinine 0.38(L) 0.70 - 1.20 mg/dL [facility] Sodium 137 135 - 145 mmol/L [facility] Potassium 4.0 3.5 - 5.0 mmol/L [facility] Comment: Please note: ??Patients with WBC >100,000 may have falsely elevated Potassium levels. ??For accurate Potassium quantification in these patients send serum separator tube (gold top) for subsequent determinations. ??Contact the Clinical Chemistry Laboratory if there are any questions. Chloride 105 98 - 107 mmol/L [facility] Carbon Dioxide 25 22 - 31 mmol/L [facility] Anion Gap 7 5 - 15 mmol/L [facility] Calcium 9.0 8.5 - 10.5 mg/dL [facility] Est Glomerular Filtration Rate 113 >=60 mL/min/1. 73 m?? [facility] Comment: This patient's estimated GFR was [...] In Lab Richard Pascal MD CHEMISTRY ORDERABLES [facility] [place] [address] * Phosphorus (08/26/2022 12:22 AM EDT) Phosphorus 2.8 2.5 - 4.5 mg/dL [facility] Blood 08/26/2022 12:2 2 AM EDT 08/26/2022 12:30 AM EDT Narrative Resulting Agency Comment Spec In Lab Richard Pascal MD CHEMISTRY ORDERABLES [facility] [place] [address] * Magnesium (08/26/2022 12:22 AM EDT) Magnesium 0.76 0.69 - 1.07 mmol/L [facility] Blood 08/26/2022 12:2 2 AM EDT 08/26/2022 12:30 AM EDT Narrative Resulting Agency Comment Spec In Lab Richard Pascal MD CHEMISTRY ORDERABLES Performing Organization Address City/[facility]/ZIP Co de Phone Number [facility] [place] [address] * POCT Glucose (08/26/2022 12:19 AM EDT) Glucose, POC 188 65 - 199 mg/dL [facility] Comment: Supplemental ranges: <140 mg/dL before meals <180 mg/dL all other times of the day Blood 08/26/2022 12:1 9 AM EDT 08/26/2022 12:19 AM EDT Milagros Hernandez MD POINT OF CARE TEST O RDERABLES Performing Organization Address [facility] Co de Phone Number [facility] [place] [address] * POCT Glucose (08/25/2022 7:47 PM EDT) Glucose, POC 182 65 - 199 mg/dL [facility] Comment: Supplemental ranges: <140 mg/dL before meals <180 mg/dL all other times of the day Blood 08/25/2022 7:47 PM EDT 08/25/2022 7:47 PM EDT Milagros Hernandez MD POINT OF CARE TEST O RDERAREYMUNDO Performing Organization Address City/[facility] Co de Phone Number [facility] [place] [address] * POCT Glucose (08/25/2022 4:31 PM EDT) Glucose, POC 156 65 - 199 mg/dL [facility] Comment: Supplemental ranges: <140 mg/dL before meals <180 mg/dL all other times of the day Blood 08/25/2022 4:31 PM EDT 08/25/2022 4:31 PM EDT Milagros Hernandez MD POINT OF CARE TEST O RDERAREYMUNDO [facility] [place] [address] * POCT Glucose (08/25/2022 3:08 PM EDT) Glucose, POC 113 65 - 199 mg/dL [facility] Comment: Supplemental ranges: <140 mg/dL before meals <180 mg/dL all other times of the day Blood 08/25/2022 3:08 PM EDT 08/25/2022 3:08 PM EDT Milagros Hernandez MD POINT OF CARE TEST O GABRIELLA Performing Organization Address [facility] Co de Phone Number [facility] [place] [address] * POCT Glucose (08/25/2022 2:09 PM EDT) Glucose, POC 146 65 - 199 mg/dL [facility] Comment: Supplemental ranges: <140 mg/dL before meals <180 mg/dL all other times of the day Blood 08/25/2022 2:09 PM EDT 08/25/2022 2:09 PM EDT Milagros Hernandez MD POINT OF CARE TEST O GABRIELLA Performing Organization Address City/[facility] Co de Phone Number [facility] [place] [address] * POCT Glucose (08/25/2022 12:44 PM EDT) Glucose, POC 197 65 - 199 mg/dL [facility] Comment: Supplemental ranges: <140 mg/dL before meals <180 mg/dL all other times of the day Blood 08/25/2022 12:4 4 PM EDT 08/25/2022 12:44 PM EDT Milagros Hernandez MD POINT OF CARE TEST O RDERABLES Performing Organization Address [facility] Co de Phone Number [facility] [place] [address] * (ABNORMAL) POCT Glucose (08/25/2022 12:25 PM EDT) Glucose, POC 212(H) 65 - 199 mg/dL [facility] Comment: Supplemental ranges: <140 mg/dL before meals <180 mg/dL all other times of the day Blood 08/25/2022 12:2 5 PM EDT 08/25/2022 12:25 PM EDT Milagros Hernandez MD POINT OF CARE TEST O RDERAREYMUNDO Performing Organization Address [facility] de Phone Number [facility] [place] [address] * Valproic Acid Level, Total (08/25/2022 11:28 AM EDT) Valproic Acid 21 mg/L [facility] Comment: Therapeutic Range: Anticonvulsant Therapy: ??50-100 mg/L Manic Episodes Associated with Bipolar Disorder: ??50-125 mg/L Blood 08/25/2022 11:2 8 AM EDT 08/25/2022 11:34 AM EDT Narrative Resulting Agency Comment Spec In Lab Milagros Hernandez MD CHEMISTRY ORDERABLES Performing Organization Address [facility] Co de Phone Number [facility] [place] [address] * POCT Glucose (08/25/2022 11:09 AM EDT) Glucose, POC 185 65 - 199 mg/dL [facility] Comment: Supplemental ranges: <140 mg/dL before meals <180 mg/dL all other times of the day Blood 08/25/2022 11:0 9 AM EDT 08/25/2022 11:09 AM EDT Milagros Hernandez MD POINT OF CARE TEST O RDERABLES Performing Organization Address [facility]/State/ZIP Co de Phone Number [facility] [place] [address] * POCT Glucose (08/25/2022 9:52 AM EDT) Glucose, POC 162 65 - 199 mg/dL [facility] Comment: Supplemental ranges: <140 mg/dL before meals <180 mg/dL all other times of the day Blood 08/25/2022 9:52 AM EDT 08/25/2022 9:52 AM EDT Milagros Hernandez MD POINT OF CARE TEST O RDERABLES [facility] [place] [address] * POCT Glucose (08/25/2022 8:59 AM EDT) Glucose, POC 137 65 - 199 mg/dL [facility] Comment: Supplemental ranges: <140 mg/dL before meals <180 mg/dL all other times of the day Blood 08/25/2022 8:59 AM EDT 08/25/2022 8:59 AM EDT Milagros Hernandez MD POINT OF CARE TEST O RDERAREYMUNDO Performing Organization Address [facility]/ZIP Co de Phone Number [facility] [place] [address] * (ABNORMAL) POCT Glucose (08/25/2022 7:32 AM EDT) Glucose, POC 202(H) 65 - 199 mg/dL [facility] Comment: Supplemental ranges: <140 mg/dL before meals <180 mg/dL all other times of the day Blood 08/25/2022 7:32 AM EDT 08/25/2022 7:32 AM EDT Milagros Hernandez MD POINT OF CARE TEST O RDERABLES [facility] [place] [address] * POCT Glucose (08/25/2022 5:50 AM EDT) Glucose, POC 169 65 - 199 mg/dL [facility] Comment: Supplemental ranges: <140 mg/dL before meals <180 mg/dL all other times of the day Blood 08/25/2022 5:50 AM EDT 08/25/2022 5:50 AM EDT Milagros Hernandez MD POINT OF CARE TEST O GABRIELLA [facility] [place] [address] * POCT Glucose (08/25/2022 3:23 AM EDT) Glucose, POC 157 65 - 199 mg/dL [facility] Comment: Supplemental ranges: <140 mg/dL before meals <180 mg/dL all other times of the day Blood 08/25/2022 3:23 AM EDT 08/25/2022 3:23 AM EDT Milagros Hernandez MD POINT OF CARE TEST O GABRIELLA Performing Organization Address [facility] Co de Phone Number [facility] [place] [address] * POCT Glucose (08/25/2022 2:35 AM EDT) Glucose, POC 163 65 - 199 mg/dL [facility] Comment: Supplemental ranges: <140 mg/dL before meals <180 mg/dL all other times of the day Blood 08/25/2022 2:35 AM EDT 08/25/2022 2:35 AM EDT Milagros Hernandez MD POINT OF CARE TEST O RDERAREYMUNDO Performing Organization Address [facility] Co de Phone Number [facility] [place] [address] * Scan, Peripheral Blood (08/25/2022 1:14 AM EDT) Plat estimate Increased [facility] RBC Morphology Abnormal [facility] Macrocyte 1-5 /HPF [facility] Microcyte 6-10 /HPF [facility] Hypochromia Slight [facility] Polychromasia Present >5/HPF [facility] Ovalocytes 1-5 /HPF [facility] Target Cells 1-5 /HPF [facility] Connor Cells 1-5 /HPF [facility] Blood 08/25/2022 1:14 AM EDT 08/25/2022 1:14 AM EDT Narrative Resulting Agency Comment Spec In Lab Tyler Cobb MD HEMATOLOGY ORDERABLE S [facility] [place] [address] * (ABNORMAL) Differential, Automated (08/25/2022 1:14 AM EDT) Neutrophil % 72.4 % [facility] Neutrophil Absolute 8.27(H) 1.70 - 6.10 x10(3)/mc L [facility] Lymph % 15.6 % [facility] Lymphocytes Abs 1.8 0.9 - 3.2 x10(3)/mc L [facility] Monocyte % 8.5 % [facility] Monocyte Abs 1.0(H) 0.3 - 0.9 x10(3)/mc L [facility] Eos % 2.3 % [facility] Eosinophils Abs 0.3 0.0 - 0.4 x10(3)/mc L [facility] Basophil % 0.4 % [facility] Baso Absolute 0.0 0.0 - 0.1 x10(3)/mc L [facility] Immature Gran % 0.80 % [facility] Comment: Immature granulocytes(IG's)percentage and absolute count will include metamyelocytes, myelocytes, and promyelocytes. Blood smears from CBCs yielding IG's will be scanned manually for concordance. If this scan disagrees with the automated IG or if promyelocytes are noted, a manual differential will be performed. Immature Gran Absolute 0.09(H) 0.00 - 0.04 x10(3)/mc L [facility] Blood 08/25/2022 1:14 AM EDT 08/25/2022 1:14 AM EDT Narrative Resulting Agency Comment Spec In Lab Tyler Cobb MD HEMATOLOGY ORDERABLE S Performing Organization Address City/[facility]/ZIP Co de Phone Number [facility] [place] [address] * (ABNORMAL) Hemogram (08/25/2022 1:14 AM EDT) White Blood Cell 11.4(H) 4.0 - 9.5 x10(3)/ L [facility] Red Blood Cell 4.00 4.00 - 5.21 x10(6)/[facility] Comment:Dimorphic RBC popula tion. Hemoglobin 8.6(L) 11.7 - 15.5 g/dL [facility] Hematocrit 27.9(L) 35.7 - 45.8 % [facility] Mean Cell Volume 69.8(L) 82.6 - 94.4 fL [facility] Mean Cell Hemoglobin 21.5(L) 27.1 - 32.0 pg [facility] Mean Cell Hemoglobin Concentration 30.8(L) 31.7 - 35.0 g/dL [facility] Platelet 501(H) 145 - 357 x10(3)/mc L [facility] RDW Standard Deviation Not Measured 37.0 - 46.0 fL [facility] RDW coefficient of variation Not Measured 11.5 - 14.1 % [facility] Mean Platelet Volume 9.8 7.6 - 12.9 fL [facility] NRBC% auto 0.0 % [facility] NRBC Absolute 0.000 0.000 - 0.000 x10(3)/mc L [facility] Blood 08/25/2022 1:14 AM EDT 08/25/2022 1:14 AM EDT Narrative Resulting Agency Comment Spec In Lab Tyler Cobb MD HEMATOLOGY ORDERABLE S Performing Organization Address City/[facility]/ZIP Co de Phone Number [facility] [place] [address] * (ABNORMAL) Basic Metabolic Panel (non-fasting) (08/25/2022 1:14 AM EDT) Glucose 186 65 - 199 mg/dL [facility] Comment:Diabetes: >=200 mg/d L plus symptoms Blood Urea Nitrogen 15 8 - 18 mg/dL [facility] Creatinine 0.38(L) 0.70 - 1.20 mg/dL [facility] Sodium 138 135 - 145 mmol/L [facility] Potassium 4.1 3.5 - 5.0 mmol/L [facility] Comment: Please note: ??Patients with WBC >100,000 may have falsely elevated Potassium levels. ??For accurate Potassium quantification in these patients send serum separator tube (gold top) for subsequent determinations. ??Contact the Clinical Chemistry Laboratory if there are any questions. Chloride 106 98 - 107 mmol/L [facility] Carbon Dioxide 24 22 - 31 mmol/L [facility] Anion Gap 8 5 - 15 mmol/L [facility] Calcium 8.6 8.5 - 10.5 mg/dL [facility] Est Glomerular Filtration Rate 113 >=60 mL/min/1. 73 m?? [facility] Comment: This patient's estimated GFR was [...] In Lab Richard Pascal MD CHEMISTRY ORDERABLES [facility] [address] [place] [address] * (ABNORMAL) Phosphorus (08/25/2022 1:14 AM EDT) Phosphorus 2.3(L) 2.5 - 4.5 mg/dL [facility] Blood 08/25/2022 1:14 AM EDT 08/25/2022 1:14 AM EDT Narrative Resulting Agency Comment Spec In Lab Richard Pascal MD CHEMISTRY ORDERABLES Performing Organization Address [facility] Co de Phone Number [facility] [place] [address] * Magnesium (08/25/2022 1:14 AM EDT) Magnesium 0.82 0.69 - 1.07 mmol/L [facility] Blood 08/25/2022 1:14 AM EDT 08/25/2022 1:14 AM EDT Narrative Resulting Agency Comment Spec In Lab Richard Pascal MD CHEMISTRY ORDERABLES Performing Organization Address [facility] Co de Phone Number [facility] [place] [address] * POCT Glucose (08/25/2022 1:00 AM EDT) Glucose, POC 186 65 - 199 mg/dL [facility] Comment: Supplemental ranges: <140 mg/dL before meals <180 mg/dL all other times of the day Blood 08/25/2022 1:00 AM EDT 08/25/2022 1:00 AM EDT Milagros Hernandez MD POINT OF CARE TEST O RDERABLES Performing Organization Address [facility] Co de Phone Number [facility] [place] [address] * POCT Glucose (08/24/2022 11:26 PM EDT) Glucose, POC 198 65 - 199 mg/dL [facility] Comment: Supplemental ranges: <140 mg/dL before meals <180 mg/dL all other times of the day Blood 08/24/2022 11:2 6 PM EDT 08/24/2022 11:26 PM EDT Milagros Hernandez MD POINT OF CARE TEST O RDERABLES Performing Organization Address City/[facility]/ZIP Co de Phone Number [facility] [place] [address] * POCT Glucose (08/24/2022 10:16 PM EDT) Glucose, POC 188 65 - 199 mg/dL [facility] Comment: Supplemental ranges: <140 mg/dL before meals <180 mg/dL all other times of the day Blood 08/24/2022 10:1 6 PM EDT 08/24/2022 10:16 PM EDT Milagros Hernandez MD POINT OF CARE TEST O RDERABLES Performing Organization Address [facility] Co de Phone Number [facility] [place] [address] * POCT Glucose (08/24/2022 9:20 PM EDT) Glucose, POC 195 65 - 199 mg/dL [facility] Comment: Supplemental ranges: <140 mg/dL before meals <180 mg/dL all other times of the day Blood 08/24/2022 9:20 PM EDT 08/24/2022 9:20 PM EDT Milagros Hernandez MD POINT OF CARE TEST O RDERABLES Performing Organization Address [facility] Co de Phone Number [facility] [place] [address] * POCT Glucose (08/24/2022 7:41 PM EDT) Glucose, POC 185 65 - 199 mg/dL [facility] Comment: Supplemental ranges: <140 mg/dL before meals <180 mg/dL all other times of the day Blood 08/24/2022 7:41 PM EDT 08/24/2022 7:41 PM EDT Milagros Hernandez MD POINT OF CARE TEST O RDERABLES [facility] [place] [address] * POCT Glucose (08/24/2022 6:38 PM EDT) Glucose, POC 136 65 - 199 mg/dL [facility] Comment: Supplemental ranges: <140 mg/dL before meals <180 mg/dL all other times of the day Blood 08/24/2022 6:38 PM EDT 08/24/2022 6:38 PM EDT Milagros Hernandez MD POINT OF CARE TEST O RDERABLES Performing Organization Address City/[facility]/ZIP Co de Phone Number [facility] [place] [address] * POCT Glucose (08/24/2022 6:00 PM EDT) Glucose, POC 131 65 - 199 mg/dL [facility] Comment: Supplemental ranges: <140 mg/dL before meals <180 mg/dL all other times of the day Blood 08/24/2022 6:00 PM EDT 08/24/2022 6:00 PM EDT Milagros Hernandez MD POINT OF CARE TEST O RDERAREYMUNDO Performing Organization Address City/[facility]/ZIP Co de Phone Number [facility] [place] [address] * POCT Glucose (08/24/2022 4:21 PM EDT) Glucose, POC 147 65 - 199 mg/dL [facility] Comment: Supplemental ranges: <140 mg/dL before meals <180 mg/dL all other times of the day Blood 08/24/2022 4:21 PM EDT 08/24/2022 4:21 PM EDT Milagros Hernandez MD POINT OF CARE TEST O RDERABLES [facility] [place] [address] * POCT Glucose (08/24/2022 3:14 PM EDT) Glucose, POC 160 65 - 199 mg/dL [facility] Comment: Supplemental ranges: <140 mg/dL before meals <180 mg/dL all other times of the day Blood 08/24/2022 3:14 PM EDT 08/24/2022 3:14 PM EDT Milagros Hernandez MD POINT OF CARE TEST O GABRIELLA [facility] [place] [address] * Potassium (08/24/2022 2:21 PM EDT) Potassium 4.4 3.5 - 5.0 mmol/L [facility] Comment: Please note: ??Patients with WBC [...] Pascal MD CHEMISTRY ORDERABLES Performing Organization Address City/[facility]/ZIP Co de Phone Number [facility] [place] [address] * POCT Glucose (08/24/2022 2:16 PM EDT) Glucose, POC 168 65 - 199 mg/dL [facility] Comment: Supplemental ranges: <140 mg/dL before meals <180 mg/dL all other times of the day Blood 08/24/2022 2:16 PM EDT 08/24/2022 2:16 PM EDT Milagros Hernandez MD POINT OF CARE TEST O GABRIELLA [facility] [place] [address] * POCT Glucose (08/24/2022 1:10 PM EDT) Glucose, POC 166 65 - 199 mg/dL [facility] Comment: Supplemental ranges: <140 mg/dL before meals <180 mg/dL all other times of the day Blood 08/24/2022 1:10 PM EDT 08/24/2022 1:10 PM EDT Milagros Hernandez MD POINT OF CARE TEST O RDAV [facility] [place] [address] * POCT Glucose (08/24/2022 12:12 PM EDT) Glucose, POC 185 65 - 199 mg/dL [facility] Comment: Supplemental ranges: <140 mg/dL before meals <180 mg/dL all other times of the day Blood 08/24/2022 12:1 2 PM EDT 08/24/2022 12:12 PM EDT Milagros Hernandez MD POINT OF CARE TEST Chepe QUIROZ Performing Organization Address [facility] Co de Phone Number [facility] [place] [address] * (ABNORMAL) Vitamin D, 25-Hydroxy (08/24/2022 11:29 AM EDT) Vitamin D Total 25 OH 12(L) 21 - 100 ng/mL [facility] Vit D Interp Deficient [facility] Blood 08/24/2022 11:2 9 AM EDT 08/24/2022 11:49 AM EDT Narrative Resulting Agency Comment Spec In Lab Dixie Tadeo MD CHEMISTRY ORDERABLES Performing Organization Address [facility] Co de Phone Number [facility] [place] [address] * PTH (08/24/2022 11:29 AM EDT) Parathyroid Hormone 60 15 - 65 pg/mL [facility] Blood 08/24/2022 11:2 9 AM EDT 08/24/2022 11:49 AM EDT Narrative Resulting Agency Comment Spec In Lab Dixie Tadeo MD CHEMISTRY ORDERABLES Performing Organization Address City/[facility]/ZIP Co de Phone Number [facility] [place] [address] * POCT Glucose (08/24/2022 11:22 AM EDT) Glucose, POC 183 65 - 199 mg/dL [facility] Comment: Supplemental ranges: <140 mg/dL before meals <180 mg/dL all other times of the day Blood 08/24/2022 11:2 2 AM EDT 08/24/2022 11:22 AM EDT Milagros Hernandez MD POINT OF CARE TEST O RDERABLES Performing Organization Address [facility] Co de Phone Number [facility] [place] [address] * POCT Glucose (08/24/2022 10:27 AM EDT) Glucose, POC 193 65 - 199 mg/dL [facility] Comment: Supplemental ranges: <140 mg/dL before meals <180 mg/dL all other times of the day Blood 08/24/2022 10:2 7 AM EDT 08/24/2022 10:27 AM EDT Milagros Hernandez MD POINT OF CARE TEST O RDERAREYMUNDO Performing Organization Address City/[facility] Co de Phone Number [facility] [place] [address] * POCT Glucose (08/24/2022 9:12 AM EDT) Glucose, POC 171 65 - 199 mg/dL [facility] Comment: Supplemental ranges: <140 mg/dL before meals <180 mg/dL all other times of the day Blood 08/24/2022 9:12 AM EDT 08/24/2022 9:12 AM EDT Milagros Hernandez MD POINT OF CARE TEST O RDERABLES Performing Organization Address [facility] Co de Phone Number [facility] [place] [address] * (ABNORMAL) POCT Glucose (08/24/2022 8:00 AM EDT) Glucose, POC 224(H) 65 - 199 mg/dL [facility] Comment: Supplemental ranges: <140 mg/dL before meals <180 mg/dL all other times of the day Blood 08/24/2022 8:00 AM EDT 08/24/2022 8:00 AM EDT Milagros Hernandez MD POINT OF CARE TEST O RDERAREYMUNDO Performing Organization Address [facility] Co de Phone Number [facility] [place] [address] * POCT Glucose (08/24/2022 6:16 AM EDT) Glucose, POC 183 65 - 199 mg/dL [facility] Comment: Supplemental ranges: <140 mg/dL before meals <180 mg/dL all other times of the day Blood 08/24/2022 6:16 AM EDT 08/24/2022 6:16 AM EDT Milagros Hernandez MD POINT OF CARE TEST O GABRIELLA Performing Organization Address [facility] Co de Phone Number [facility] [place] [address] * POCT Glucose (08/24/2022 4:49 AM EDT) Glucose, POC 145 65 - 199 mg/dL [facility] Comment: Supplemental ranges: <140 mg/dL before meals <180 mg/dL all other times of the day Blood 08/24/2022 4:49 AM EDT 08/24/2022 4:49 AM EDT Milagros Hernandez MD POINT OF CARE TEST O RDERABLES Performing Organization Address [facility] Co de Phone Number [facility] [place] [address] * POCT Glucose (08/24/2022 4:08 AM EDT) [facility] Glucose, POC 135 65 - 199 mg/dL [facility] Comment: Supplemental ranges: <140 mg/dL before meals <180 mg/dL all other times of the day Blood 08/24/2022 4:08 AM EDT 08/24/2022 4:08 AM EDT Milagros Hernandez MD POINT OF CARE TEST O GABRIELLA Performing Organization Address [facility] Co de Phone Number [facility] [place] [address] * Scan, Peripheral Blood (08/24/2022 1:53 AM EDT) [place] [facility] Plat estimate Increased [facility] RBC Morphology Abnormal [facility] Microcyte 1-5 /HPF [facility] Hypochromia Slight [facility] P[facility] Ovalocytes 1-5 /HPF [facility] ITAL LABORATORY Connor Cells 1-5 /HPF [facility] ITAL LABORATORY Platelet Clumps Present [facility] Blood 08/24/2022 1:53 AM EDT 08/24/2022 2:02 AM EDT Narrative Resulting Agency Comment Spec In Lab Tyler Cobb MD HEMATOLOGY ORDERABLE S Performing Organization Address [facility] Co de Phone Number [facility] [place] [address] * (ABNORMAL) Differential, Automated (08/24/2022 1:53 AM EDT) [facility] Neutrophil % 77.0 % [facility] Neutrophil Absolute 10.61(H) 1.70 - 6.10 x10(3)/mc L [facility] Lymph % 11.1 % [facility] Lymphocytes Abs 1.5 0.9 - 3.2 x10(3)/mc L [facility] Monocyte % 8.2 % [facility] ITAL LABORATORY Monocyte Abs 1.1(H) 0.3 - 0.9 x10(3)/mc L [facility] Eos % 2.2 % [facility] Eosinophils Abs 0.3 0.0 - 0.4 x10(3)/[facility] LABORATORY Basophil % 0.4 % [facility] Baso Absolute 0.1 0.0 - 0.1 x10(3)/ L [facility] Immature Gran % 1.10 % [facility] Comment: Immature granulocytes(IG's)percentage and absolute count will include metamyelocytes, myelocytes, and promyelocytes. Blood smears from CBCs yielding IG's will be scanned manually for concordance. If this scan disagrees with the automated IG or if promyelocytes are noted, a manual differential will be performed. Immature Gran Absolute 0.15(H) 0.00 - 0.04 x10(3)/[facility] LABORATORY Blood 08/24/2022 1:53 AM EDT 08/24/2022 2:02 AM EDT Narrative Resulting Agency Comment Spec In Lab Tyler Cobb MD HEMATOLOGY ORDERABLE S [facility] [place] [address] * (ABNORMAL) Hemogram (08/24/2022 1:53 AM EDT) White Blood Cell 13.8(H) 4.0 - 9.5 x10(3)/ L [facility] Red Blood Cell 4.05 4.00 - 5.21 x10(6)/mc L [facility] Hemoglobin 8.7(L) 11.7 - 15.5 g/dL [facility] Hematocrit 28.1(L) 35.7 - 45.8 % [facility] Mean Cell Volume 69.4(L) 82.6 - 94.4 fL [facility] Mean Cell Hemoglobin 21.5(L) 27.1 - 32.0 pg [facility] Mean Cell Hemoglobin Concentration 31.0(L) 31.7 - 35.0 g/dL [facility] Platelet 504(H) 145 - 357 x10(3)/ L [facility] RDW Standard Deviation 71.8(H) 37.0 - 46.0 fL [facility] RDW coefficient of variation 31.0(H) 11.5 - 14.1 % [facility] Mean Platelet Volume 9.7 7.6 - 12.9 fL [facility] NRBC% auto 0.1 % [facility] ITAL LABORATORY NRBC Absolute 0.020(H) 0.000 - 0.000 x10(3)/mc L [facility] Blood 08/24/2022 1:53 AM EDT 08/24/2022 2:02 AM EDT Narrative Resulting Agency Comment Spec In Lab Tyler Cobb MD HEMATOLOGY ORDERABLE S [facility] [place] [address] * (ABNORMAL) Basic Metabolic Panel (non-fasting) (08/24/2022 1:53 AM EDT) Pathologist [facility] Glucose 155 65 - 199 mg/dL [facility] Comment:Diabetes: >=200 mg/d L plus symptoms Blood Urea Nitrogen 17 8 - 18 mg/dL [facility] Creatinine 0.45(L) 0.70 - 1.20 mg/dL [facility] Sodium 141 135 - 145 mmol/L [facility] Potassium 3.7 3.5 - 5.0 mmol/L [facility] Comment: Please note: ??Patients with WBC >100,000 may have falsely elevated Potassium levels. ??For accurate Potassium quantification in these patients send serum separator tube (gold top) for subsequent determinations. ??Contact the Clinical Chemistry Laboratory if there are any questions. Chloride 106 98 - 107 mmol/L [facility] Carbon Dioxide 27 22 - 31 mmol/L [facility] Anion Gap 8 5 - 15 mmol/L [facility] Calcium 8.6 8.5 - 10.5 mg/dL [facility] Est Glomerular Filtration Rate 109 >=60 mL/min/1. 73 m?? [facility] Comment: This patient's estimated GFR was [...] In Lab Richard Pascal MD CHEMISTRY ORDERABLES [facility] [place] [address] * (ABNORMAL) Phosphorus (08/24/2022 1:53 AM EDT) Phosphorus 2.3(L) 2.5 - 4.5 mg/dL [facility] Blood 08/24/2022 1:53 AM EDT 08/24/2022 2:02 AM EDT Narrative Resulting Agency Comment Spec In Lab Richard Pascal MD CHEMISTRY ORDERABLES Performing Organization Address City/[facility] Co de Phone Number [facility] [place] [address] * Magnesium (08/24/2022 1:53 AM EDT) Magnesium 0.90 0.69 - 1.07 mmol/L [facility] Blood 08/24/2022 1:53 AM EDT 08/24/2022 2:02 AM EDT Narrative Resulting Agency Comment Spec In Lab Richard Pascal MD CHEMISTRY ORDERABLES Performing Organization Address City/[facility]/ZIP Co de Phone Number [facility] [place] [address] * POCT Glucose (08/24/2022 1:51 AM EDT) Glucose, POC 151 65 - 199 mg/dL [facility] Comment: Supplemental ranges: <140 mg/dL before meals <180 mg/dL all other times of the day Blood 08/24/2022 1:51 AM EDT 08/24/2022 1:51 AM EDT Milagros Hernandez MD POINT OF CARE TEST O RDERABLES Performing Organization Address City/[facility] Co de Phone Number [facility] [place] [address] * POCT Glucose (08/24/2022 12:01 AM EDT) Glucose, POC 174 65 - 199 mg/dL [facility] Comment: Supplemental ranges: <140 mg/dL before meals <180 mg/dL all other times of the day Blood 08/24/2022 12:0 1 AM EDT 08/24/2022 12:01 AM EDT Milagros Hernandez MD POINT OF CARE TEST O RDERAREYMUNDO Performing Organization Address [facility] Co de Phone Number [facility] [place] [address] * POCT Glucose (08/23/2022 11:03 PM EDT) Glucose, POC 180 65 - 199 mg/dL [facility] Comment: Supplemental ranges: <140 mg/dL before meals <180 mg/dL all other times of the day Blood 08/23/2022 11:0 3 PM EDT 08/23/2022 11:03 PM EDT Milagros Hernandez MD POINT OF CARE TEST O RDERAREYMUNDO Performing Organization Address City/[facility] Co de Phone Number [facility] [place] [address] * (ABNORMAL) POCT Glucose (08/23/2022 9:10 PM EDT) Glucose, POC 200(H) 65 - 199 mg/dL [facility] Comment: Supplemental ranges: <140 mg/dL before meals <180 mg/dL all other times of the day Blood 08/23/2022 9:10 PM EDT 08/23/2022 9:10 PM EDT Milagros Hernandez MD POINT OF CARE TEST O RDERABLES Performing Organization Address [facility] Co de Phone Number [facility] [place] [address] * POCT Glucose (08/23/2022 7:01 PM EDT) Glucose, POC 189 65 - 199 mg/dL [facility] Comment: Supplemental ranges: <140 mg/dL before meals <180 mg/dL all other times of the day Blood 08/23/2022 7:01 PM EDT 08/23/2022 7:01 PM EDT Milagros Hernandez MD POINT OF CARE TEST O RDERAREYMUNDO Performing Organization Address [facility] Co de Phone Number [facility] [place] [address] * POCT Glucose (08/23/2022 6:09 PM EDT) Glucose, POC 194 65 - 199 mg/dL [facility] Comment: Supplemental ranges: <140 mg/dL before meals <180 mg/dL all other times of the day Blood 08/23/2022 6:09 PM EDT 08/23/2022 6:09 PM EDT Milagros Hernandez MD POINT OF CARE TEST O RDERABLES Performing Organization Address [facility] Co de Phone Number [facility] [place] [address] * (ABNORMAL) POCT Glucose (08/23/2022 4:26 PM EDT) Glucose, POC 214(H) 65 - 199 mg/dL [facility] Comment: Supplemental ranges: <140 mg/dL before meals <180 mg/dL all other times of the day Blood 08/23/2022 4:26 PM EDT 08/23/2022 4:26 PM EDT Milagros Hernandez MD POINT OF CARE TEST O RDERABLES [facility] [place] [address] * POCT Glucose (08/23/2022 2:56 PM EDT) Glucose, POC 158 65 - 199 mg/dL [facility] Comment: Supplemental ranges: <140 mg/dL before meals <180 mg/dL all other times of the day Blood 08/23/2022 2:56 PM EDT 08/23/2022 2:56 PM EDT Milagros Hernandez MD POINT OF CARE TEST O RDERABLES Performing Organization Address [facility] Co de Phone Number [facility] [place] [address] * POCT Glucose (08/23/2022 1:32 PM EDT) Glucose, POC 166 65 - 199 mg/dL [facility] Comment: Supplemental ranges: <140 mg/dL before meals <180 mg/dL all other times of the day Blood 08/23/2022 1:32 PM EDT 08/23/2022 1:32 PM EDT Milagros Hernandez MD POINT OF CARE TEST O RDERABLES Performing Organization Address City/[facility]/ZIP Co de Phone Number [facility] [place] [address] * POCT Glucose (08/23/2022 12:06 PM EDT) Glucose, POC 171 65 - 199 mg/dL [facility] Comment: Supplemental ranges: <140 mg/dL before meals <180 mg/dL all other times of the day Blood 08/23/2022 12:0 6 PM EDT 08/23/2022 12:06 PM EDT Milagros Hernandez MD POINT OF CARE TEST O RDERABLES [facility] [place] [address] * POCT Glucose (08/23/2022 11:09 AM EDT) Glucose, POC 153 65 - 199 mg/dL [facility] Comment: Supplemental ranges: <140 mg/dL before meals <180 mg/dL all other times of the day Blood 08/23/2022 11:0 9 AM EDT 08/23/2022 11:09 AM EDT Milagros Hernandez MD POINT OF CARE TEST O RDERABLES Performing Organization Address [facility] Co de Phone Number [facility] [place] [address] * Scan, Peripheral Blood (08/23/2022 10:55 AM EDT) Pathologist [facility] Plat estimate Increased [facility] RBC Morphology Abnormal [facility] Microcyte 1-5 /HPF [facility] Hypochromia Slight [facility] PITAL LAB[facility] Ovalocytes 1-5 /HPF [facility] ITAL LABORATORY Connor Cells 1-5 /HPF [facility] Platelet Clumps Present [facility] Blood 08/23/2022 10:5 5 AM EDT 08/23/2022 11:03 AM EDT Narrative Resulting Agency Comment Spec In Lab Neva Tomlin MD HEMATOLOGY ORDERABLE S Performing Organization Address City/[facility] Co de Phone Number [facility] [place] [address] * (ABNORMAL) Differential, Automated (08/23/2022 10:55 AM EDT) Neutrophil % 81.2 % [facility] Neutrophil Absolute 13.28(H) 1.70 - 6.10 x10(3)/mc L [facility] Lymph % 8.6 % [facility] Lymphocytes Abs 1.4 0.9 - 3.2 x10(3)/mc L [facility] Monocyte % 7.0 % [facility] ITAL LABORATORY Monocyte Abs 1.2(H) 0.3 - 0.9 x10(3)/mc L [facility] Eos % 1.7 % [facility] Eosinophils Abs 0.3 0.0 - 0.4 x10(3)/mc L [facility] Basophil % 0.2 % [facility] ITAL LABORATORY Baso Absolute 0.0 0.0 - 0.1 x10(3)/mc L [facility] Immature Gran % 1.30 % [facility] Comment: Immature granulocytes(IG's)percentage and absolute count will include metamyelocytes, myelocytes, and promyelocytes. Blood smears from CBCs yielding IG's will be scanned manually for concordance. If this scan disagrees with the automated IG or if promyelocytes are noted, a manual differential will be performed. Immature Gran Absolute 0.22(H) 0.00 - 0.04 x10(3)/ L [facility] Blood 08/23/2022 10:5 5 AM EDT 08/23/2022 11:03 AM EDT Narrative Resulting Agency Comment Spec In Lab Neva Tomlin MD HEMATOLOGY ORDERABLE S [facility] [place] [address] * (ABNORMAL) Hemogram (08/23/2022 10:55 AM EDT) White Blood Cell 16.4(H) 4.0 - 9.5 x10(3)/mc L [facility] Red Blood Cell 3.89(L) 4.00 - 5.21 x10(6)/mc L [facility] Hemoglobin 8.6(L) 11.7 - 15.5 g/dL [facility] Hematocrit 27.2(L) 35.7 - 45.8 % [facility] Mean Cell Volume 69.9(L) 82.6 - 94.4 fL [facility] Mean Cell Hemoglobin 22.1(L) 27.1 - 32.0 pg [facility] Mean Cell Hemoglobin Concentration 31.6(L) 31.7 - 35.0 g/dL [facility] Platelet Not Measured 145 - 357 x10(3)/mc L [facility] Comment: Platelet clumps present. Estimate appears Increased. If numerical platelet count is necessary send both a Sodium Citrate tube and an EDTA tube for future platelet count orders. RDW Standard Deviation Not Measured 37.0 - 46.0 fL [facility] RDW coefficient of variation Not Measured 11.5 - 14.1 % [facility] Mean Platelet Volume Not Measured 7.6 - 12.9 fL [facility] NRBC% auto 0.2 % [facility] ITAL LABORATORY NRBC Absolute 0.030(H) 0.000 - 0.000 x10(3)/mc L [facility] Blood 08/23/2022 10:5 5 AM EDT 08/23/2022 11:03 AM EDT Narrative Resulting Agency Comment Spec In Lab Neva Tomlin MD HEMATOLOGY ORDERABLE S Performing Organization Address [facility] Co de Phone Number [facility] [place] [address] * (ABNORMAL) POCT Glucose (08/23/2022 8:01 AM EDT) Glucose, POC 210(H) 65 - 199 mg/dL [facility] Comment: Supplemental ranges: <140 mg/dL before meals <180 mg/dL all other times of the day Blood 08/23/2022 8:01 AM EDT 08/23/2022 8:01 AM EDT Milagros Hernandez MD POINT OF CARE TEST O GABRIELLA Performing Organization Address [facility] Co de Phone Number [facility] [place] [address] * POCT Glucose (08/23/2022 4:22 AM EDT) Glucose, POC 173 65 - 199 mg/dL [facility] Comment: Supplemental ranges: <140 mg/dL before meals <180 mg/dL all other times of the day Blood 08/23/2022 4:22 AM EDT 08/23/2022 4:22 AM EDT Milagros Hernandez MD POINT OF CARE TEST O RDERABLES Performing Organization Address [facility] Co de Phone Number [facility] [place] [address] * POCT Glucose (08/23/2022 2:32 AM EDT) Pathologist [facility] Glucose, POC 181 65 - 199 mg/dL [facility] Comment: Supplemental ranges: <140 mg/dL before meals <180 mg/dL all other times of the day Blood 08/23/2022 2:32 AM EDT 08/23/2022 2:32 AM EDT Milagros Hernandez MD POINT OF CARE TEST O RDERABLES Performing Organization Address [facility] Co de Phone Number [facility] [place] [address] * Scan, Peripheral Blood (08/23/2022 2:30 AM EDT) [facility] Plat estimate Increased [facility] RBC Morphology Abnormal [facility] Microcyte 1-5 /HPF [facility] Hypochromia Slight [facility] Ovalocytes 1-5 /HPF [facility] ITAL LABORATORY Target Cells 1-5 /HPF [facility] Platelet Clumps Present [facility] Blood 08/23/2022 2:30 AM EDT 08/23/2022 2:42 AM EDT Narrative Resulting Agency Comment Spec In Lab Tyler Cobb MD HEMATOLOGY ORDERABLE S Performing Organization Address [facility] Co de Phone Number [facility] [place] [address] * (ABNORMAL) Differential, Automated (08/23/2022 2:30 AM EDT) Pathologist [facility] Neutrophil % 79.7 % [facility] Neutrophil Absolute 13.27(H) 1.70 - 6.10 x10(3)/mc L [facility] Lymph % 9.2 % [facility] Lymphocytes Abs 1.5 0.9 - 3.2 x10(3)/mc L [facility] Monocyte % 7.8 % [facility] ITAL LABORATORY Monocyte Abs 1.3(H) 0.3 - 0.9 x10(3)/mc L [facility] Eos % 1.6 % [facility] Eosinophils Abs 0.3 0.0 - 0.4 x10(3)/[facility] LABORATORY Basophil % 0.2 % [facility] ITAL LABORATORY Baso Absolute 0.0 0.0 - 0.1 x10(3)/ L [facility] Immature Gran % 1.50 % [facility] Comment: Immature granulocytes(IG's)percentage and absolute count will include metamyelocytes, myelocytes, and promyelocytes. Blood smears from CBCs yielding IG's will be scanned manually for concordance. If this scan disagrees with the automated IG or if promyelocytes are noted, a manual differential will be performed. Immature Gran Absolute 0.25(H) 0.00 - 0.04 x10(3)/[facility] LABORATORY Blood 08/23/2022 2:30 AM EDT 08/23/2022 2:42 AM EDT Narrative Resulting Agency Comment Spec In Lab Tyler Cobb MD HEMATOLOGY ORDERABLE S [facility] [place] [address] * (ABNORMAL) Hemogram (08/23/2022 2:30 AM EDT) White Blood Cell 16.7(H) 4.0 - 9.5 x10(3)/[facility] LABORATORY Red Blood Cell 3.98(L) 4.00 - 5.21 x10(6)/ L [facility] Hemoglobin 8.7(L) 11.7 - 15.5 g/dL [facility] Hematocrit 27.6(L) 35.7 - 45.8 % [facility] Mean Cell Volume 69.3(L) 82.6 - 94.4 fL [facility] Mean Cell Hemoglobin 21.9(L) 27.1 - 32.0 pg [facility] Mean Cell Hemoglobin Concentration 31.5(L) 31.7 - 35.0 g/dL [facility] Platelet Not Measured 145 - 357 x10(3)/[facility] LABORATORY Comment: Platelet clumps present. Estimate appears Increased. If numerical platelet count is necessary send both a Sodium Citrate tube and an EDTA tube for future platelet count orders. RDW Standard Deviation Not Measured 37.0 - 46.0 fL [facility] RDW coefficient of variation Not Measured 11.5 - 14.1 % [facility] Mean Platelet Volume Not Measured 7.6 - 12.9 fL [facility] NRBC% auto 0.2 % [facility] ITAL LABORATORY NRBC Absolute 0.040(H) 0.000 - 0.000 x10(3)/mc L [facility] Blood 08/23/2022 2:30 AM EDT 08/23/2022 2:42 AM EDT Narrative Resulting Agency Comment Spec In Lab Tyler Cobb MD HEMATOLOGY ORDERABLE S Performing Organization Address City/State/[facility] Co de Phone Number [facility] [place] [address] * (ABNORMAL) Basic Metabolic Panel (non-fasting) (08/23/2022 2:30 AM EDT) Glucose 195 65 - 199 mg/dL [facility] Comment:Diabetes: >=200 mg/d L plus symptoms Blood Urea Nitrogen 16 8 - 18 mg/dL [facility] Creatinine 0.53(L) 0.70 - 1.20 mg/dL [facility] Sodium 142 135 - 145 mmol/L [facility] Potassium 4.2 3.5 - 5.0 mmol/L [facility] Comment: Please note: ??Patients with WBC >100,000 may have falsely elevated Potassium levels. ??For accurate Potassium quantification in these patients send serum separator tube (gold top) for subsequent determinations. ??Contact the Clinical Chemistry Laboratory if there are any questions. Chloride 107 98 - 107 mmol/L [facility] Carbon Dioxide 27 22 - 31 mmol/L [facility] Anion Gap 8 5 - 15 mmol/L [facility] Calcium 8.5 8.5 - 10.5 mg/dL [facility] Est Glomerular Filtration Rate 105 >=60 mL/min/1. 73 m?? [facility] Comment: This patient's estimated GFR was [...] Pascal MD CHEMISTRY ORDERABLES Performing Organization Address City/[facility] Co de Phone Number [facility] [place] [address] * Phosphorus (08/23/2022 2:30 AM EDT) Phosphorus 2.8 2.5 - 4.5 mg/dL [facility] Blood 08/23/2022 2:30 AM EDT 08/23/2022 2:42 AM EDT Narrative Resulting Agency Comment Spec In Lab Richard Pascal MD CHEMISTRY ORDERABLES Performing Organization Address [facility] Co de Phone Number [facility] [place] [address] * Magnesium (08/23/2022 2:30 AM EDT) Magnesium 0.80 0.69 - 1.07 mmol/L [facility] Blood 08/23/2022 2:30 AM EDT 08/23/2022 2:42 AM EDT Narrative Resulting Agency Comment Spec In Lab Richard Pascal MD CHEMISTRY ORDERABLES Performing Organization Address [facility] Co de Phone Number [facility] [place] [address] * POCT Glucose (08/23/2022 1:11 AM EDT) Glucose, POC 137 65 - 199 mg/dL [facility] Comment: Supplemental ranges: <140 mg/dL before meals <180 mg/dL all other times of the day Blood 08/23/2022 1:11 AM EDT 08/23/2022 1:11 AM EDT Milagros Hernandez MD POINT OF CARE TEST O RDERABLES Performing Organization Address City/[facility] Co de Phone Number [facility] [place] [address] * POCT Glucose (08/23/2022 12:28 AM EDT) Glucose, POC 136 65 - 199 mg/dL [facility] Comment: Supplemental ranges: <140 mg/dL before meals <180 mg/dL all other times of the day Blood 08/23/2022 12:2 8 AM EDT 08/23/2022 12:28 AM EDT Milagros Hernandez MD POINT OF CARE TEST O HUGHERAREYMUNDO Performing Organization Address [facility] Co de Phone Number [facility] [place] [address] * POCT Glucose (08/22/2022 10:15 PM EDT) Glucose, POC 194 65 - 199 mg/dL [facility] Comment: Supplemental ranges: <140 mg/dL before meals <180 mg/dL all other times of the day Blood 08/22/2022 10:1 5 PM EDT 08/22/2022 10:15 PM EDT Milagros Hernandez MD POINT OF CARE TEST O RDERABLES Performing Organization Address City/[facility] Co de Phone Number [facility] [place] [address] * POCT Glucose (08/22/2022 9:11 PM EDT) Glucose, POC 162 65 - 199 mg/dL [facility] Comment: Supplemental ranges: <140 mg/dL before meals <180 mg/dL all other times of the day Blood 08/22/2022 9:11 PM EDT 08/22/2022 9:11 PM EDT Milagros Hernandez MD POINT OF CARE TEST O GABRIELLA Performing Organization Address City[facility] [place]/[facility] Co de Phone Number [facility] [place] [address] * POCT Glucose (08/22/2022 6:47 PM EDT) Glucose, POC 181 65 - 199 mg/dL [facility] Comment: Supplemental ranges: <140 mg/dL before meals <180 mg/dL all other times of the day Blood 08/22/2022 6:47 PM EDT 08/22/2022 6:47 PM EDT Milagros Hernandez MD POINT OF CARE TEST Chepe QUIROZ Performing Organization Address [facility] [place]/[facility] Co de Phone Number [facility] [place] [address] * POCT Glucose (08/22/2022 6:14 PM EDT) Glucose, POC 193 65 - 199 mg/dL [facility] Comment: Supplemental ranges: <140 mg/dL before meals <180 mg/dL all other times of the day Blood 08/22/2022 6:14 PM EDT 08/22/2022 6:14 PM EDT Milagros Hernandez MD POINT OF CARE TEST O GABRIELLA Performing Organization Address [facility] [place]/[facility] Co de Phone Number [facility] [place] [address] * (ABNORMAL) POCT Glucose (08/22/2022 5:37 PM EDT) Glucose, POC 202(H) 65 - 199 mg/dL [facility] Comment: Supplemental ranges: <140 mg/dL before meals <180 mg/dL all other times of the day Blood 08/22/2022 5:37 PM EDT 08/22/2022 5:37 PM EDT Milagros Hernandez MD POINT OF CARE TEST O RDERABLES Performing Organization Address [facility] [place]/[facility] Co de Phone Number [facility] [place] [address] * (ABNORMAL) POCT Glucose (08/22/2022 4:17 PM EDT) Glucose, POC 207(H) 65 - 199 mg/dL [facility] Comment: Supplemental ranges: <140 mg/dL before meals <180 mg/dL all other times of the day Blood 08/22/2022 4:17 PM EDT 08/22/2022 4:17 PM EDT Milagros Hernandez MD POINT OF CARE TEST O RDERAREYMUNDO Performing Organization Address [facility] [place]/[facility] Co de Phone Number [facility] [place] [address] * POCT Glucose (08/22/2022 2:01 PM EDT) Glucose, POC 147 65 - 199 mg/dL [facility] Comment: Supplemental ranges: <140 mg/dL before meals <180 mg/dL all other times of the day Blood 08/22/2022 2:01 PM EDT 08/22/2022 2:01 PM EDT Milagros Hernandez MD POINT OF CARE TEST O GABRIELLA Performing Organization Address [facility] [place]/[facility] Co de Phone Number [facility] [place] [address] * POCT Glucose (08/22/2022 12:10 PM EDT) Glucose, POC 121 65 - 199 mg/dL [facility] Comment: Supplemental ranges: <140 mg/dL before meals <180 mg/dL all other times of the day Blood 08/22/2022 12:1 0 PM EDT 08/22/2022 12:10 PM EDT Milagros Hernandez MD POINT OF CARE TEST O RDERABLES Performing Organization Address [place]/[facility] [place]/ZIP Co de Phone Number [facility] [place] [address] * Prepare RBC (08/22/2022 11:15 AM EDT) Dispensed? Yes [facility] Blood 08/22/2022 11:1 5 AM EDT 08/22/2022 11:11 AM EDT Milagros Hernandez MD BLOOD BANK PRODUCT O RDERABLES Performing Organization Address City/[facility] [place]/ZIP Co de Phone Number [facility] [place] [address] * POCT Glucose (08/22/2022 10:03 AM EDT) [facility] Glucose, POC 145 65 - 199 mg/dL [facility] Comment: Supplemental ranges: <140 mg/dL before meals <180 mg/dL all other times of the day Blood 08/22/2022 10:0 3 AM EDT 08/22/2022 10:03 AM EDT Milagros Hernandez MD POINT OF CARE TEST O RDERABLES Performing Organization Address [facility] [place]/[facility] Co de Phone Number [facility] [place] [address] * Type and Screen Validity (08/22/2022 9:00 AM EDT) T&S only valid at [facility] Comment:This Type and Screen result is only valid at the [facility] Blood 08/22/2022 9:00 AM EDT 08/22/2022 9:33 AM EDT Narrative Resulting Agency Comment Spec In Lab Reynaldo Avila MD BLOOD BANK LAB SUMI JONES Performing Organization Address City/[facility] [place]/ZIP Co de Phone Number [facility] [place] [address] * ABORH Recheck Status (08/22/2022 9:00 AM EDT) ABORH Recheck Order Order Placed [facility] ABORH Type Recheck Complete [facility] Blood 08/22/2022 9:00 AM EDT 08/22/2022 9:33 AM EDT Narrative Resulting Agency Comment Spec In Lab Reynaldo Avila MD BLOOD BANK LAB SUMI JONES [facility] [place] [address] * Antibody screen (08/22/2022 9:00 AM EDT) Ab Screen Interp Negative [facility] Expires at [id number] on: 08/25/2022 [facility] Blood 08/22/2022 9:00 AM EDT 08/22/2022 9:33 AM EDT Narrative Resulting Agency Comment Spec In Lab Reynaldo Avila MD BLOOD BANK LAB SUMI PETTYSALVATORE [facility] [place] [address] * ABO/Rh Typing (08/22/2022 9:00 AM EDT) ABORH Type O Pos [facility] Blood 08/22/2022 9:00 AM EDT 08/22/2022 9:33 AM EDT Narrative Resulting Agency Comment Spec In Lab Reynaldo Avila MD BLOOD BANK LAB ORDYoli PETTYSALVATORE Performing Organization Address City/[facility]/ZIP Co de Phone Number [facility] [place] [address] * POCT Glucose (08/22/2022 8:00 AM EDT) Glucose, POC 156 65 - 199 mg/dL [facility] Comment: Supplemental ranges: <140 mg/dL before meals <180 mg/dL all other times of the day Blood 08/22/2022 8:00 AM EDT 08/22/2022 8:00 AM EDT Milagros Hernandez MD POINT OF CARE TEST O RDERABLES Performing Organization Address City/[facility]/ZIP Co de Phone Number [facility] [place] [address] * POCT Glucose (08/22/2022 5:53 AM EDT) Glucose, POC 154 65 - 199 mg/dL [facility] Comment: Supplemental ranges: <140 mg/dL before meals <180 mg/dL all other times of the day Blood 08/22/2022 5:53 AM EDT 08/22/2022 5:53 AM EDT Milagros Hernandez MD POINT OF CARE TEST O RDERABLES Performing Organization Address [facility] [place]/[facility] Co de Phone Number [facility] [place] [address] * POCT Glucose (08/22/2022 3:40 AM EDT) Glucose, POC 182 65 - 199 mg/dL [facility] Comment: Supplemental ranges: <140 mg/dL before meals <180 mg/dL all other times of the day Blood 08/22/2022 3:40 AM EDT 08/22/2022 3:40 AM EDT Milagros Hernandez MD POINT OF CARE TEST O RDERABLES Performing Organization Address City/[facility]/ZIP Co de Phone Number [facility] [place] [address] * (ABNORMAL) Differential, Automated (08/22/2022 3:39 AM EDT) Neutrophil % 79.0 % [facility] Neutrophil Absolute 13.15(H) 1.70 - 6.10 x10(3)/[facility] LAB[facility]AT[facility] Lymph % 10.5 % [facility] Lymphocytes Abs 1.7 0.9 - 3.2 x10(3)/[facility] Monocyte % 6.8 % [facility] Monocyte Abs 1.1(H) 0.3 - 0.9 x10(3)/[facility] Eos % 0.9 % [facility] Eosinophils Abs 0.2 0.0 - 0.4 x10(3)/ L [facility] Basophil % 0.2 % [facility] ITAL LABORATORY Baso Absolute 0.0 0.0 - 0.1 x10(3)/ L [facility] Immature Gran % 2.60 % [facility] Comment: Immature granulocytes(IG's)percentage and absolute count will include metamyelocytes, myelocytes, and promyelocytes. Blood smears from CBCs yielding IG's will be scanned manually for concordance. If this scan disagrees with the automated IG or if promyelocytes are noted, a manual differential will be performed. Immature Gran Absolute 0.44(H) 0.00 - 0.04 x10(3)/[facility] Blood 08/22/2022 3:39 AM EDT 08/22/2022 3:47 AM EDT Narrative Resulting Agency Comment Spec In Lab Tyler Cobb MD HEMATOLOGY ORDERABLE S [facility] [place] [address] * (ABNORMAL) Hemogram (08/22/2022 3:39 AM EDT) White Blood Cell 16.6(H) 4.0 - 9.5 x10(3)/ L [facility] Red Blood Cell 3.54(L) 4.00 - 5.21 x10(6)/ L [facility] Hemoglobin 7.1(L) 11.7 - 15.5 g/dL [facility] Hematocrit 23.7(L) 35.7 - 45.8 % [facility] Mean Cell Volume 66.9(L) 82.6 - 94.4 fL [facility] Mean Cell Hemoglobin 20.1(L) 27.1 - 32.0 pg [facility] Mean Cell Hemoglobin Concentration 30.0(L) 31.7 - 35.0 g/dL [facility] Platelet 445(H) 145 - 357 x10(3)/ L [facility] RDW Standard Deviation 68.9(H) 37.0 - 46.0 fL [facility] RDW coefficient of variation 31.0(H) 11.5 - 14.1 % [facility] Mean Platelet Volume 10.2 7.6 - 12.9 fL [facility] NRBC% auto 0.2 % [facility] ITAL LABORATORY NRBC Absolute 0.040(H) 0.000 - 0.000 x10(3)/mc L [facility] Blood 08/22/2022 3:39 AM EDT 08/22/2022 3:47 AM EDT Narrative Resulting Agency Comment Spec In Lab Tyler Cobb MD HEMATOLOGY ORDERABLE S [facility] [place] [address] * (ABNORMAL) Basic Metabolic Panel (non-fasting) (08/22/2022 3:39 AM EDT) Glucose 191 65 - 199 mg/dL [facility] Comment:Diabetes: >=200 mg/d L plus symptoms Blood Urea Nitrogen 20(H) 8 - 18 mg/dL [facility] Creatinine 0.56(L) 0.70 - 1.20 mg/dL [facility] Sodium 145 135 - 145 mmol/L [facility] Potassium 4.1 3.5 - 5.0 mmol/L [facility] Comment: Please note: ??Patients with WBC >100,000 may have falsely elevated Potassium levels. ??For accurate Potassium quantification in these patients send serum separator tube (gold top) for subsequent determinations. ??Contact the Clinical Chemistry Laboratory if there are any questions. Chloride 111(H) 98 - 107 mmol/L [facility] Carbon Dioxide 27 22 - 31 mmol/L [facility] Anion Gap 7 5 - 15 mmol/L [facility] Calcium 8.7 8.5 - 10.5 mg/dL [facility] Est Glomerular Filtration Rate 103 >=60 mL/min/1. 73 m?? [facility] Comment: This patient's estimated GFR was [...] Pascal MD CHEMISTRY ORDERABLES Performing Organization Address City/[facility]/ZIP Co de Phone Number [facility] [place] [address] * (ABNORMAL) Phosphorus (08/22/2022 3:39 AM EDT) Phosphorus 2.4(L) 2.5 - 4.5 mg/dL [facility] Blood 08/22/2022 3:39 AM EDT 08/22/2022 3:47 AM EDT Narrative Resulting Agency Comment Spec In Lab Richard Pascal MD CHEMISTRY ORDERABLES Performing Organization Address [facility] [place]/[facility] Co de Phone Number [facility] [place] [address] * Magnesium (08/22/2022 3:39 AM EDT) Magnesium 0.86 0.69 - 1.07 mmol/L [facility] Blood 08/22/2022 3:39 AM EDT 08/22/2022 3:47 AM EDT Narrative Resulting Agency Comment Spec In Lab Richard Pascal MD CHEMISTRY ORDERABLES Performing Organization Address [facility] [place]/[facility] Co de Phone Number [facility] [place] [address] * (ABNORMAL) POCT Glucose (08/22/2022 2:15 AM EDT) Glucose, POC 232(H) 65 - 199 mg/dL [facility] Comment: Supplemental ranges: <140 mg/dL before meals <180 mg/dL all other times of the day Blood 08/22/2022 2:15 AM EDT 08/22/2022 2:15 AM EDT Milagros Hernandez MD POINT OF CARE TEST O GABRIELLA Performing Organization Address [facility] [place]/[facility] de Phone Number [facility] [place] [address] * (ABNORMAL) POCT Glucose (08/22/2022 12:43 AM EDT) Glucose, POC 233(H) 65 - 199 mg/dL [facility] Comment: Supplemental ranges: <140 mg/dL before meals <180 mg/dL all other times of the day Blood 08/22/2022 12:4 3 AM EDT 08/22/2022 12:43 AM EDT Milagros Hernandez MD POINT OF CARE TEST O GABRIELLA Performing Organization Address [facility] [place]/[facility] de Phone Number [facility] [place] [address] * XR Pelvis (Generic) (08/22/2022 12:19 AM [...] who have questions please contact the health patient care technician instructor that requested your imaging first. ? Electronically signed by: Richard Billings MD, [facility] ([phone]), at 08/22/2022 10:25 AM Narrative 08/22/2022 10:25 [...] patients who have questions please contactthe health patient care technician instructor that requested your imaging first. Electronically signed by: Richard Billings MD, [facility]([phone]), at 08/22/2022 10:25 AM Milagros Hernandez MD [...] who have questions please contact the health patient care technician instructor that requested your imaging first. ? Electronically signed by: Viktor Cervantes MD, [facility] ([phone]), at 08/22/2022 12:43 PM Narrative 08/22/2022 12:43 [...] patients who have questions please contactthe health patient care technician instructor that requested your imaging first. Milagros Hernandez MD IMG DX ORDERABLES * (ABNORMAL) POCT Glucose (08/21/2022 10:26 PM EDT) Glucose, POC 226(H) 65 - 199 mg/dL [facility] Comment: Supplemental ranges: <140 mg/dL before meals <180 mg/dL all other times of the day Blood 08/21/2022 10:2 6 PM EDT 08/21/2022 10:26 PM EDT Milagros Hernandez MD POINT OF CARE TEST O RDERABLES Performing Organization Address [facility] [place]/[facility] Co de Phone Number [facility] [place] [address] * POCT Glucose (08/21/2022 7:48 PM EDT) Glucose, POC 123 65 - 199 mg/dL [facility] Comment: Supplemental ranges: <140 mg/dL before meals <180 mg/dL all other times of the day Blood 08/21/2022 7:48 PM EDT 08/21/2022 7:48 PM EDT Milagros Hernandez MD POINT OF CARE TEST O RDERABLES Performing Organization Address [facility] Co de Phone Number [facility] [place] [address] * POCT Glucose (08/21/2022 5:59 PM EDT) Glucose, POC 138 65 - 199 mg/dL [facility] Comment: Supplemental ranges: <140 mg/dL before meals <180 mg/dL all other times of the day Blood 08/21/2022 5:59 PM EDT 08/21/2022 5:59 PM EDT Milagros Hernandez MD POINT OF CARE TEST O RDERABLES Performing Organization Address City/[facility]/ZIP Co de Phone Number [facility] [place] [address] * POCT Glucose (08/21/2022 5:06 PM EDT) Glucose, POC 152 65 - 199 mg/dL [facility] Comment: Supplemental ranges: <140 mg/dL before meals <180 mg/dL all other times of the day Blood 08/21/2022 5:06 PM EDT 08/21/2022 5:06 PM EDT Milagros Hernandez MD POINT OF CARE TEST O RDERABLES Performing Organization Address [facility] [place] [address] * Cell Count, Bronchoalveolar Lavage (08/21/2022 4:50 PM EDT) Color BAL White [facility] Appearance, BAL Hazy [facility] NUC, BAL Count 422 mcL [facility] Seg BAL 87 % [facility] Lymph, BAL 10 % [facility] Macrophage BAL 2 % [facility] Eos, BAL 1 % [facility] Total Cells, BAL 200 Cells [facility] Bronchial Alveolar Lavage 08/21/2022 4:50 PM EDT 08/21/2022 5:37 PM EDT Narrative Resulting Agency Comment Spec In Lab Milagros Hernandez MD BODY FLUIDS AND STOO LS ORDERABLES Performing Organization Address [facility] [place]/[facility] Co de Phone Number [facility] [place] [address] * Calcofluor White Stain (08/21/2022 4:50 PM EDT) Calcofluor Stain Calcofluor White Preparation: Negative [facility] Bronchial Alveolar Lavage 08/21/2022 4:50 PM EDT 08/21/2022 5:37 PM EDT Comment:JACQUI Narrative Resulting Agency Comment Spec In Lab Reynaldo Avila MD MICROBIOLOGY - GENE RAL ORDERABLES Performing Organization Address [place]/[facility] Co de Phone Number [facility] [place] [address] * (ABNORMAL) Fungus culture (08/21/2022 4:50 PM EDT) Fungus Culture Rare Jacky albicans(A) [facility] Organism Jacky albicans(A) [facility] Bronchial Alveolar Lavage 08/21/2022 4:50 PM EDT 08/21/2022 5:37 PM EDT Comment:JACQUI Narrative Resulting Agency Comment Spec In Lab Reynaldo Avila MD MICROBIOLOGY - GENE RAL ORDERABLES Performing Organization Address [facility] Co de Phone Number [facility] [place] [address] * AFB culture Bronchial Alveolar Lavage (08/21/2022 4:50 PM EDT) Acid Fast Bacilli Culture No Acid Fast Bacilli isolated If active tuberculosis is suspected, the patient should be on [employer] PRECAUTIONS. Call Infection Prevention for assistance if needed. [facility] Acid Fast Stain No Acid Fast Bacilli seen [facility] Bronchial Alveolar Lavage 08/21/2022 4:50 PM EDT 08/21/2022 5:37 PM EDT Comment:JACQUI Narrative Resulting Agency Comment Spec In Lab Milagros Hernandez MD MICROBIOLOGY - GENER AL ORDERABLES Performing Organization Address [facility] Co de Phone Number [facility] [place] [address] * Lower Respiratory Culture Bronchial Alveolar Lavage (08/21/2022 4:50 PM EDT) Lower Respiratory Culture Rare mixed bacterial morphotypes suggestive of normal upper respiratory wiley [facility] Gram Stain Few Neutrophils seen No squamous epithelial cells seen No microorganisms seen. [facility] Bronchial Alveolar Lavage 08/21/2022 4:50 PM EDT 08/21/2022 5:37 PM EDT Comment:JACQUI Narrative Resulting Agency Comment Spec In Lab Milagros Hernandez MD MICROBIOLOGY - GENER AL ORDERABLES Performing Organization Address City/[facility] Co de Phone Number [facility] [place] [address] * Cell Count, Bronchoalveolar Lavage (08/21/2022 4:45 PM EDT) Color BAL White [facility] Appearance, BAL Cloudy [facility] NUC, BAL Count 1,471 mcL [facility] Seg BAL 81 % [facility] Lymph, BAL 17 % [facility] Macrophage BAL 2 % [facility] Total Cells, BAL 200 Cells [facility] Bronchial Alveolar Lavage 08/21/2022 4:45 PM EDT 08/21/2022 5:36 PM EDT Narrative Resulting Agency Comment Spec In Lab Aileen Mayorga MD BODY FLUIDS AND STOO LS ORDERABLES Performing Organization Address [facility] [place] [address] * Calcofluor White Stain (08/21/2022 4:45 PM EDT) Calcofluor Stain Calcofluor White Preparation: Negative [facility] Bronchial Alveolar Lavage 08/21/2022 4:45 PM EDT 08/21/2022 5:39 PM EDT Narrative Resulting Agency Comment Spec In Lab Reynaldo Avila MD MICROBIOLOGY - GENE RAL ORDERABLES Performing Organization Address [facility] Co de Phone Number [facility] [place] [address] * (ABNORMAL) Fungus culture (08/21/2022 4:45 PM EDT) Fungus Culture Rare Jacky albicans(A) [facility] Organism Jacky albicans(A) [facility] Bronchial Alveolar Lavage 08/21/2022 4:45 PM EDT 08/21/2022 5:39 PM EDT Narrative Resulting Agency Comment Spec In Lab Reynaldo Avila MD MICROBIOLOGY - GENE RAL ORDERABLES Performing Organization Address City/[facility]/ZIP Co de Phone Number [facility] [place] [address] * AFB culture Bronchial Alveolar Lavage (08/21/2022 4:45 PM EDT) Acid Fast Bacilli Culture No Acid Fast Bacilli isolated If active tuberculosis is suspected, the patient should be on [employer] PRECAUTIONS. Call Infection Prevention for assistance if needed. [facility] Acid Fast Stain No Acid Fast Bacilli seen [facility] Bronchial Alveolar Lavage 08/21/2022 4:45 PM EDT 08/21/2022 5:39 PM EDT Narrative Resulting Agency Comment Spec In Lab Milagros Hernandez MD MICROBIOLOGY - GENER AL ORDERABLES Performing Organization Address City/[facility]/ZIP Co de Phone Number [facility] [place] [address] * Lower Respiratory Culture Bronchial Alveolar Lavage (08/21/2022 4:45 PM EDT) Lower Respiratory Culture Rare mixed bacterial morphotypes suggestive of normal upper respiratory wiley [facility] Gram Stain Moderate Neutrophils seen No squamous epithelial cells seen No microorganisms seen. [facility] Bronchial Alveolar Lavage 08/21/2022 4:45 PM EDT 08/21/2022 5:39 PM EDT Narrative Resulting Agency Comment Spec In Lab Milagros Hernandez MD MICROBIOLOGY - GENER AL ORDERABLES Performing Organization Address City/[facility]/ZIP Co de Phone Number [facility] [place] [address] * Potassium (08/21/2022 3:45 PM EDT) Potassium 3.9 3.5 - 5.0 mmol/L [facility] Comment: Please note: ??Patients with WBC [...] Pascal MD CHEMISTRY ORDERABLES Performing Organization Address City/[facility]/ZIP Co de Phone Number [facility] [place] [address] * POCT Glucose (08/21/2022 3:24 PM EDT) Glucose, POC 148 65 - 199 mg/dL [facility] Comment: Supplemental ranges: <140 mg/dL before meals <180 mg/dL all other times of the day Blood 08/21/2022 3:24 PM EDT 08/21/2022 3:24 PM EDT Milagros Hernandez MD POINT OF CARE TEST O RDERABLES Performing Organization Address [facility] Co de Phone Number [facility] [place] [address] * IR Ultrasound in IR (08/21/2022 3:09 [...] Glucose, POC 191 65 - 199 mg/dL [facility] Comment: Supplemental ranges: <140 mg/dL before meals <180 mg/dL all other times of the day Blood 08/21/2022 1:34 PM EDT 08/21/2022 1:34 PM EDT Milagros Hernandez MD POINT OF CARE TEST O RDERABLES Performing Organization Address [facility] de Phone Number [facility] [place] [address] * POCT Glucose (08/21/2022 12:58 PM EDT) Glucose, POC 196 65 - 199 mg/dL [facility] Comment: Supplemental ranges: <140 mg/dL before meals <180 mg/dL all other times of the day Blood 08/21/2022 12:5 8 PM EDT 08/21/2022 12:58 PM EDT Milagros Hernandez MD POINT OF CARE TEST O RDERABLES Performing Organization Address [facility] Co de Phone Number [facility] [place] [address] * (ABNORMAL) CRP, acute inflammation (08/21/2022 12:00 PM EDT) C-Reactive Protein 19.4(H) <=4.9 mg/L [facility] Blood 08/21/2022 12:0 0 PM EDT 08/21/2022 12:24 PM EDT Narrative Resulting Agency Comment Spec In Lab Milagros Hernandez MD CHEMISTRY ORDERABLES Performing Organization Address [facility] Co de Phone Number [facility] [place] [address] * (ABNORMAL) Sedimentation rate (08/21/2022 12:00 PM EDT) Pathologist [facility] Sedimentation Rate Automated >119(H) 2 - 39 mm/hr [facility] Comment: Effective April 19, 2019 new capillary photometric technology has resulted in a change in reference ranges. It is recommended that each ESR result be reviewed with its own age appropriate reference range. Blood 08/21/2022 12:0 0 PM EDT 08/21/2022 12:24 PM EDT Narrative Resulting Agency Comment Spec In Lab Milagros Hernandez MD HEMATOLOGY ORDERABLE S Performing Organization Address [facility] Co de Phone Number [facility] [place] [address] * POCT Glucose (08/21/2022 11:56 AM EDT) [facility] Glucose, POC 182 65 - 199 mg/dL [facility] Comment: Supplemental ranges: <140 mg/dL before meals <180 mg/dL all other times of the day Blood 08/21/2022 11:5 6 AM EDT 08/21/2022 11:56 AM EDT Milagros Hernandez MD POINT OF CARE TEST O RDERABLES Performing Organization Address [facility] Co de Phone Number [facility] [place] [address] * Potassium (08/21/2022 10:00 AM EDT) [facility] Signature Potassium 4.4 3.5 - 5.0 mmol/L [facility] Comment: Please note: ??Patients with WBC [...] Cobb MD CHEMISTRY ORDERABLES Performing Organization Address City/[facility]/ZIP Co de Phone Number [facility] [place] [address] * Ferritin (08/21/2022 10:00 AM EDT) Pathologist [facility] Ferritin 85 30 - 400 ng/mL [facility] Comment: Pediatric reference ranges not verified at [facility], interpret with caution. Reference ranges for females greater than 50 years of age approach values for men, i.e., 30-400 ng/mL. Blood 08/21/2022 10:0 0 AM EDT 08/21/2022 10:12 AM EDT Narrative Resulting Agency Comment Spec In Lab Carlos Terry MD CHEMISTRY ORDERABLES Performing Organization Address [facility] Co de Phone Number [facility] [place] [address] * (ABNORMAL) Iron and TIBC (08/21/2022 10:00 AM EDT) [facility] Iron 25(L) 30 - 150 mcg/dL [facility] TIBC 203(L) 250 - 450 mcg/dL [facility] Iron Saturation 12(L) 20 - 50 % [facility] Blood 08/21/2022 10:0 0 AM EDT 08/21/2022 10:12 AM EDT Narrative Resulting Agency Comment Spec In Lab Carlos Terry MD CHEMISTRY ORDERABLES Performing Organization Address City/[facility]/ZIP Co de Phone Number [facility] [place] [address] * Histoplasma Antigen, Urine (08/21/2022 10:00 AM EDT) Pathologist [facility] U Histoplasma Ag (MAY) Not Detected Not Detected [facility] Comment: No Histoplasma antigen detected. False negative results may occur. ??Repeat testing on a new specimen should be considered if clinically indicated. Test Performed by: [facility] [address] [place] [id number] Candy Packer: Rock Leone M.D. Ph.D.; CLIA# [id number] U Histo Ag Value (SEPTEMBER) Not Detected ng/mL [facility] Comment: ADDITIONAL INFORMATION This test has been modified from the loan documentation specialist's instructions. Its performance characteristics were determined by [facility] in a manner consistent with CLIA requirements. This test has not been cleared or approved by the U.S. Food and Drug Administration. Test Performed by: [facility] - [address] [address] Candy Packer: Rock Leone M.D. Ph.D.; CLIA# [id number] Urine 08/21/2022 10:0 0 AM EDT 08/21/2022 1:15 PM EDT Narrative Resulting Agency Comment Spec In Lab Carlos Terry MD LAB SEND OUT ORDERAB LES Performing Organization Address City/[facility]/ZIP Co de Phone Number [facility] [place] [address] * POCT Glucose (08/21/2022 9:57 AM EDT) Glucose, POC 141 65 - 199 mg/dL [facility] Comment: Supplemental ranges: <140 mg/dL before meals <180 mg/dL all other times of the day Blood 08/21/2022 9:57 AM EDT 08/21/2022 9:57 AM EDT Milagros Hernandez MD POINT OF CARE TEST O RDERABLES Performing Organization Address [facility] Co de Phone Number [facility] [place] [address] * Aspergillus Antigen (08/21/2022 8:30 AM EDT) Aspergillus Ag (SEPTEMBER) <0.500 <0.5 Index [facility] Comment: ADDITIONAL INFORMATION This is a qualitative test and the resulted index value is not indicative of disease severity. ??Serial testing is recommended for patients at high risk for invasive aspergillosis. This assay was performed using the FDA-cleared [employer] Platelia Aspergillus Galactomannan EIA. Test Performed by: [facility] [place] [address] Candy Packer: Rock Leone M.D. Ph.D.; CLIA# [id number] Blood 08/21/2022 8:30 AM EDT 08/21/2022 1:15 PM EDT Narrative Resulting Agency Comment Spec In Lab Carlos Terry MD LAB SEND OUT ORDERAB LES Performing Organization Address City/[facility]/ZIP Co de Phone Number [facility] [place] [address] * POCT Glucose (08/21/2022 8:28 AM EDT) Pathologist [facility] Glucose, POC 118 65 - 199 mg/dL [facility] Comment: Supplemental ranges: <140 mg/dL before meals <180 mg/dL all other times of the day Blood 08/21/2022 8:28 AM EDT 08/21/2022 8:28 AM EDT Carlos Terry MD POINT OF CARE TEST O RDERABLES Performing Organization Address [facility] Co de Phone Number [facility] [place] [address] * (ABNORMAL) Fungitell (1,7-Xcqp-V-Glucan) (08/21/2022 8:00 AM EDT) Fungitell Quantitative Value (SEPTEMBER) >500(A) <60 pg/mL pg/mL [facility] Comment: Test Performed by: [facility] - [address] [address] Candy Packer: Rock Leone M.D. Ph.D.; CLIA# [id number] Fungitell Qualitative Result (MAY) Positive (A) Negative [facility] Comment: (1, 3) Sgma-F-Sfhsen detected. A single positive result should be [...] produce very low levels of (1, 3) Yhoy-P-Dnqevx (BDG) and the Mucorales (e.g., Lichthemia, Mucor and Rhizopus), which are not known to produce BDG. Additionally, the yeast phase of Blastomyces dermatitidis produces little BDG and may not be detected by this assay. ADDITIONAL INFORMATION This assay was performed using the FDA-cleared Fungitell Assay ([facility], [place], [place], [place]), a kinetic DALILA based on modification of the Limulus Amebocyte Lysate pathway. Test Performed by: [place] [address] Candy Packer: Rock Leone M.D. Ph.D.; CLIA# [id number] Blood 08/21/2022 8:00 AM EDT 08/21/2022 1:15 PM EDT Narrative Resulting Agency Comment Spec In Lab Carlos Terry MD LAB SEND OUT ORDERAB LES [facility] [place] [address] * POCT Glucose (08/21/2022 7:50 AM EDT) Glucose, POC 130 65 - 199 mg/dL [facility] Comment: Supplemental ranges: <140 mg/dL before meals <180 mg/dL all other times of the day Blood 08/21/2022 7:50 AM EDT 08/21/2022 7:50 AM EDT Calros Terry MD POINT OF CARE TEST O RDERAREYMUNDO Performing Organization Address City/[facility] Co de Phone Number [facility] [place] [address] * POCT Glucose (08/21/2022 6:06 AM EDT) Glucose, POC 141 65 - 199 mg/dL [facility] Comment: Supplemental ranges: <140 mg/dL before meals <180 mg/dL all other times of the day Blood 08/21/2022 6:06 AM EDT 08/21/2022 6:06 AM EDT Carlos Terry MD POINT OF CARE TEST O GABRIELLA Performing Organization Address [facility] Co de Phone Number [facility] [place] [address] * POCT Glucose (08/21/2022 3:48 AM EDT) Glucose, POC 187 65 - 199 mg/dL [facility] Comment: Supplemental ranges: <140 mg/dL before meals <180 mg/dL all other times of the day Blood 08/21/2022 3:48 AM EDT 08/21/2022 3:48 AM EDT Carlos Terry MD POINT OF CARE TEST O RDERAREYMUNDO Performing Organization Address [facility] Co de Phone Number [facility] [place] [address] * (ABNORMAL) Differential, Automated (08/21/2022 3:46 AM EDT) Neutrophil % 79.8 % [facility] Neutrophil Absolute 16.69(H) 1.70 - 6.10 x10(3)/mc L [facility] Lymph % 9.2 % [facility] Lymphocytes Abs 1.9 0.9 - 3.2 x10(3)/ L [facility] Monocyte % 6.2 % [facility] Monocyte Abs 1.3(H) 0.3 - 0.9 x10(3)/ L [facility] Eos % 0.3 % [facility] Eosinophils Abs 0.1 0.0 - 0.4 x10(3)/[facility] Basophil % 0.2 % [facility] Baso Absolute 0.0 0.0 - 0.1 x10(3)/ L [facility] Immature Gran % 4.30 % [facility] Comment: Immature granulocytes(IG's)percentage and absolute count will include metamyelocytes, myelocytes, and promyelocytes. Blood smears from CBCs yielding IG's will be scanned manually for concordance. If this scan disagrees with the automated IG or if promyelocytes are noted, a manual differential will be performed. Immature Gran Absolute 0.89(H) 0.00 - 0.04 x10(3)/ L [facility] Blood 08/21/2022 3:46 AM EDT 08/21/2022 3:58 AM EDT Narrative Resulting Agency Comment Spec In Lab Tyler Cobb MD HEMATOLOGY ORDERABLE S [facility] [place] [address] * (ABNORMAL) Hemogram (08/21/2022 3:46 AM EDT) White Blood Cell 20.9(H) 4.0 - 9.5 x10(3)/[facility] Red Blood Cell 3.68(L) 4.00 - 5.21 x10(6)/[facility] Hemoglobin 7.4(L) 11.7 - 15.5 g/dL [facility] Hematocrit 24.2(L) 35.7 - 45.8 % [facility] Mean Cell Volume 65.8(L) 82.6 - 94.4 fL [facility] Mean Cell Hemoglobin 20.1(L) 27.1 - 32.0 pg [facility] Mean Cell Hemoglobin Concentration 30.6(L) 31.7 - 35.0 g/dL [facility] Platelet 381(H) 145 - 357 x10(3)/mc L [facility] RDW Standard Deviation 67.2(H) 37.0 - 46.0 fL [facility] RDW coefficient of variation 30.4(H) 11.5 - 14.1 % [facility] Mean Platelet Volume 10.1 7.6 - 12.9 fL [facility] NRBC% auto 0.5 % [facility] NRBC Absolute 0.110(H) 0.000 - 0.000 x10(3)/mc L [facility] Blood 08/21/2022 3:46 AM EDT 08/21/2022 3:58 AM EDT Narrative Resulting Agency Comment Spec In Lab Tyler Cobb MD HEMATOLOGY ORDERABLE S Performing Organization Address City/State/[facility] Co de Phone Number [facility] [place] [address] * (ABNORMAL) Basic Metabolic Panel (non-fasting) (08/21/2022 3:46 AM EDT) Glucose 188 65 - 199 mg/dL [facility] Comment:Diabetes: >=200 mg/d L plus symptoms Blood Urea Nitrogen 22(H) 8 - 18 mg/dL [facility] Creatinine 0.60(L) 0.70 - 1.20 mg/dL [facility] Sodium 145 135 - 145 mmol/L [facility] Potassium 3.7 3.5 - 5.0 mmol/L [facility] Comment: Please note: ??Patients with WBC >100,000 may have falsely elevated Potassium levels. ??For accurate Potassium quantification in these patients send serum separator tube (gold top) for subsequent determinations. ??Contact the Clinical Chemistry Laboratory if there are any questions. Chloride 107 98 - 107 mmol/L [facility] Carbon Dioxide 31 22 - 31 mmol/L [facility] Anion Gap 7 5 - 15 mmol/L [facility] Calcium 8.7 8.5 - 10.5 mg/dL [facility] Est Glomerular Filtration Rate 101 >=60 mL/min/1. 73 m?? [facility] Comment: This patient's estimated GFR was [...] CHEMISTRY ORDERABLES Performing Organization Address [facility] Co de Phone Number [facility] [place] [address] * (ABNORMAL) Phosphorus (08/21/2022 3:46 AM EDT) Phosphorus 2.4(L) 2.5 - 4.5 mg/dL [facility] Blood 08/21/2022 3:46 AM EDT 08/21/2022 3:58 AM EDT Narrative Resulting Agency Comment Spec In Lab Richard Pascal MD CHEMISTRY ORDERABLES Performing Organization Address City/[facility] Co de Phone Number [facility] [place] [address] * Magnesium (08/21/2022 3:46 AM EDT) Magnesium 0.87 0.69 - 1.07 mmol/L [facility] Blood 08/21/2022 3:46 AM EDT 08/21/2022 3:58 AM EDT Narrative Resulting Agency Comment Spec In Lab Richard Pascal MD CHEMISTRY ORDERABLES Performing Organization Address City/[facility]/ZIP Co de Phone Number [facility] [place] [address] * (ABNORMAL) Lipase (08/21/2022 3:46 AM EDT) Lipase 178(H) 0 - 60 unit/L [facility] Blood 08/21/2022 3:46 AM EDT 08/21/2022 3:58 AM EDT Narrative Resulting Agency Comment Spec In Lab Carlos Terry MD CHEMISTRY ORDERABLES [facility] [place] [address] * POCT Glucose (08/21/2022 1:57 AM EDT) Glucose, POC 167 65 - 199 mg/dL [facility] Comment: Supplemental ranges: <140 mg/dL before meals <180 mg/dL all other times of the day Blood 08/21/2022 1:57 AM EDT 08/21/2022 1:57 AM EDT Carlos Terry MD POINT OF CARE TEST O RDERAREYMUNDO Performing Organization Address [facility] Co de Phone Number [facility] [place] [address] * (ABNORMAL) POCT Glucose (08/20/2022 11:55 PM EDT) Glucose, POC 221(H) 65 - 199 mg/dL [facility] Comment: Supplemental ranges: <140 mg/dL before meals <180 mg/dL all other times of the day Blood 08/20/2022 11:5 5 PM EDT 08/20/2022 11:55 PM EDT Carlos Terry MD POINT OF CARE TEST O RDERAREYMUNDO Performing Organization Address City/[facility]/ZIP Co de Phone Number [facility] [place] [address] * CT Chest w Contrast (08/20/2022 11:04 [...] who have questions please contact the health patient care technician instructor that requested your imaging first. ? Narrative [...] the diaphragm with tip not included the [id number]-[id number]. There is some wall thickening of the [...] the duodenum, not fully included in the [id number]. Skeletal structures: No acute osseous findings. No [...] below the diaphragmwith tip not included the pahpm-oh-evky. There is some wall thickening of theesophagus. [...] portion the duodenum,not fully included in the zdtqx-lw-vufi. Skeletal structures: No acute osseous findings. No [...] patients who have questions please contactthe health patient care technician instructor that requested your imaging first. Carlos Terry [...] who have questions please contact the health patient care technician instructor that requested your imaging first. ? Electronically signed by: Aicha Chowdhury MD, [facility] ([phone]), at 08/21/2022 9:34 AM Narrative 08/21/2022 9:34 [...] hip performed after administration of 110 mL [id number]. Coronal and sagittal reformats were obtained. COMPARISON: [...] 1.8 cm (series 9, image 251 and [id number], image 46), without rim enhancement to suggest [...] patients who have questions please contactthe health patient care technician instructor that requested your imaging first. Carlos Terry MD IMG CT ORDERABLES * POCT Glucose (08/20/2022 9:54 PM EDT) Glucose, POC 195 65 - 199 mg/dL [facility] Comment: Supplemental ranges: <140 mg/dL before meals <180 mg/dL all other times of the day Blood 08/20/2022 9:54 PM EDT 08/20/2022 9:54 PM EDT Carlos Terry MD POINT OF CARE TEST O RDERAREYMUNDO [facility] [place] [address] * POCT Glucose (08/20/2022 8:46 PM EDT) Glucose, POC 118 65 - 199 mg/dL [facility] Comment: Supplemental ranges: <140 mg/dL before meals <180 mg/dL all other times of the day Blood 08/20/2022 8:46 PM EDT 08/20/2022 8:46 PM EDT Carlos Terry MD POINT OF CARE TEST O RDERAREYMUNDO [facility] [place] [address] * POCT Glucose (08/20/2022 6:21 PM EDT) Glucose, POC 164 65 - 199 mg/dL [facility] Comment: Supplemental ranges: <140 mg/dL before meals <180 mg/dL all other times of the day Blood 08/20/2022 6:21 PM EDT 08/20/2022 6:21 PM EDT Carlos Terry MD POINT OF CARE TEST O RDERABLES Performing Organization Address City/[facility] Co de Phone Number [facility] [place] [address] * POCT Glucose (08/20/2022 4:27 PM EDT) Glucose, POC 180 65 - 199 mg/dL [facility] Comment: Supplemental ranges: <140 mg/dL before meals <180 mg/dL all other times of the day Blood 08/20/2022 4:27 PM EDT 08/20/2022 4:27 PM EDT Carlos Terry MD POINT OF CARE TEST O RDERAREYMUNDO Performing Organization Address [facility] Co de Phone Number [facility] [place] [address] * POCT Glucose (08/20/2022 2:11 PM EDT) Glucose, POC 150 65 - 199 mg/dL [facility] Comment: Supplemental ranges: <140 mg/dL before meals <180 mg/dL all other times of the day Blood 08/20/2022 2:11 PM EDT 08/20/2022 2:11 PM EDT Carlos Terry MD POINT OF CARE TEST O RDERABLES Performing Organization Address City/[facility] Co de Phone Number [facility] [place] [address] * (ABNORMAL) Hepatic Function Panel (08/20/2022 2:00 PM EDT) Protein, Total 5.6(L) 6.1 - 8.0 g/dL [facility] Albumin 2.5(L) 3.2 - 5.2 g/dL [facility] Aspartate Aminotransferase 39(H) 0 - 30 unit/L [facility] Alanine Aminotransferase 20 0 - 30 unit/L [facility] Alkaline Phosphatase 213(H) 35 - 105 unit/L [facility] Bilirubin, Total <0.2(L) 0.2 - 1.3 mg/dL [facility] Bilirubin, Direct 0.1 0.0 - 0.3 mg/dL [facility] Blood 08/20/2022 2:00 PM EDT 08/20/2022 2:20 PM EDT Narrative Resulting Agency Comment Spec In Lab Carlos Terry MD CHEMISTRY ORDERABLES Performing Organization Address [facility] Co de Phone Number [facility] [place] [address] * TSH [place] (08/20/2022 2:00 PM EDT) Thyroid Stimulating Hormone 1.90 0.27 - 4.20 mcIU/mL [facility] Comment: Reference Interval (mcIU/mL): Females: ??First Trimester: 0.23-3.88 ??Second Trimester: 0.22-3.90 ??Third Trimester: 0.44-4.66 Blood 08/20/2022 2:00 PM EDT 08/20/2022 2:20 PM EDT Narrative Resulting Agency Comment Spec In Lab Carlos Terry MD CHEMISTRY ORDERABLES Performing Organization Address City/[facility] Co de Phone Number [facility] [place] [address] * POCT Glucose (08/20/2022 12:13 PM EDT) Glucose, POC 163 65 - 199 mg/dL [facility] Comment: Supplemental ranges: <140 mg/dL before meals <180 mg/dL all other times of the day Blood 08/20/2022 12:1 3 PM EDT 08/20/2022 12:13 PM EDT Carlos Terry MD POINT OF CARE TEST O RDERABLES Performing Organization Address City/[facility] Co de Phone Number [facility] [place] [address] * POCT Glucose (08/20/2022 10:05 AM EDT) Glucose, POC 196 65 - 199 mg/dL [facility] Comment: Supplemental ranges: <140 mg/dL before meals <180 mg/dL all other times of the day Blood 08/20/2022 10:0 5 AM EDT 08/20/2022 10:05 AM EDT Carlos Terry MD POINT OF CARE TEST O RDERABLES Performing Organization Address [facility] Co de Phone Number [facility] [place] [address] * (ABNORMAL) POCT Glucose (08/20/2022 7:26 AM EDT) Glucose, POC 233(H) 65 - 199 mg/dL [facility] Comment: Supplemental ranges: <140 mg/dL before meals <180 mg/dL all other times of the day Blood 08/20/2022 7:26 AM EDT 08/20/2022 7:26 AM EDT Carlos Terry MD POINT OF CARE TEST O RDERABLES Performing Organization Address [facility] Co de Phone Number [facility] [place] [address] * POCT Glucose (08/20/2022 6:31 AM EDT) Glucose, POC 190 65 - 199 mg/dL [facility] Comment: Supplemental ranges: <140 mg/dL before meals <180 mg/dL all other times of the day Blood 08/20/2022 6:31 AM EDT 08/20/2022 6:31 AM EDT Carlos Terry MD POINT OF CARE TEST O RDERABLES [facility] [place] [address] * (ABNORMAL) BLOOD GAS 2 ARTERIAL (08/20/2022 5:41 AM EDT) pH, Arterial 7.56(H) 7.35 - 7.45 [facility] PCO2, Arterial 31(L) 35 - 45 mmHg [facility] PO2, Arterial 92 85 - 104 mmHg [facility] Bicarbonate, Arterial 27.3(H) 20.0 - 26.0 mmol/L [facility] Base Excess, Arterial 5.0(H) -3.0 - 3.0 mmol/L [facility] Hgb Blood Gas 8.5(L) 11.7 - 15.5 g/dL [facility] Oxyhemoglobin, Arterial 96.0 94.0 - 97.0 % [facility] Carboxyhemoglob in, Arterial 0.3 % [facility] Comment: Nonsmokers: 0.5-1.5% COHB Smokers: Variable, but usually less than 10% Toxic: 20-30% COHB Lethal: Greater than 60% COHB Methemoglobin, Arterial 0.9 <=1.5 % [facility] Na Whole Blood 141 135 - 145 mmol/L [facility] K Whole Blood 3.6 3.5 - 5.0 mmol/L [facility] Comment: Please note: Patients with WBC >100,000 may have falsely elevated Potassium levels. Contact the Clinical Chemistry Laboratory if there are any questions. ICa Whole Blood 1.15 1.15 - 1.33 mmol/L [facility] Comment: Note: ??Total bilirubin higher than 20 mg/dL may lead to falsely low ionized calcium. CL Whole Blood 110(H) 98 - 107 mmol/L [facility] Gluc Whole Bld 160 65 - 199 mg/dL [facility] Comment:Diabetes: >=200 mg/d L plus symptoms. Lactate WB 1.6 0.5 - 2.2 mmol/L [facility] FIO2 Art 30 % [facility] PF Ratio Art 307 [facility] Blood 08/20/2022 5:41 AM EDT 08/20/2022 5:41 AM EDT Carlos Terry MD POINT OF CARE TEST O RDERABLES Performing Organization Address City/[facility]/ZIP Co de Phone Number [facility] [place] [address] * POCT Glucose (08/20/2022 4:29 AM EDT) Glucose, POC 114 65 - 199 mg/dL [facility] Comment: Supplemental ranges: <140 mg/dL before meals <180 mg/dL all other times of the day Blood 08/20/2022 4:29 AM EDT 08/20/2022 4:29 AM EDT Carlos Terry MD POINT OF CARE TEST O RDERABLES Performing Organization Address [facility] Co de Phone Number [facility] [place] [address] * POCT Glucose (08/20/2022 3:53 AM EDT) Glucose, POC 114 65 - 199 mg/dL [facility] [facility] Comment: Supplemental ranges: <140 mg/dL before meals <180 mg/dL all other times of the day Blood 08/20/2022 3:53 AM EDT 08/20/2022 3:53 AM EDT Carlos Terry MD POINT OF CARE TEST O RDERABLES Performing Organization Address [facility] Co de Phone Number [facility] [place] [address] * POCT Glucose (08/20/2022 2:05 AM EDT) Glucose, POC 140 65 - 199 mg/dL [facility] Comment: Supplemental ranges: <140 mg/dL before meals <180 mg/dL all other times of the day Blood 08/20/2022 2:05 AM EDT 08/20/2022 2:05 AM EDT Carlos Terry MD POINT OF CARE TEST O RDERABLES [facility] [place] [address] * Scan, Peripheral Blood (08/20/2022 12:30 AM EDT) Plat estimate Normal [facility] RBC Morphology Abnormal [facility] Macrocyte 1-5 /HPF [facility] Microcyte gtr than 10 /HPF [facility] Hypochromia Moderate [facility] Polychromasia Present >5/HPF [facility] Ovalocytes 1-5 /HPF [facility] Target Cells 1-5 /HPF [facility] Blood 08/20/2022 12:3 0 AM EDT 08/20/2022 12:32 AM EDT Narrative Resulting Agency Comment Spec In Lab Tyler Cobb MD HEMATOLOGY ORDERABLE S Performing Organization Address [facility] Co de Phone Number [facility] [place] [address] * (ABNORMAL) Differential, Automated (08/20/2022 12:30 AM EDT) Neutrophil % 77.6 % [facility] Neutrophil Absolute 21.72(H) 1.70 - 6.10 x10(3)/mc L [facility] Lymph % 8.3 % [facility] Lymphocytes Abs 2.3 0.9 - 3.2 x10(3)/mc L [facility] Monocyte % 6.5 % [facility] Monocyte Abs 1.8(H) 0.3 - 0.9 x10(3)/mc L [facility] Eos % 0.2 % [facility] Eosinophils Abs 0.0 0.0 - 0.4 x10(3)/mc L [facility] Basophil % 0.3 % [facility] Baso Absolute 0.1 0.0 - 0.1 x10(3)/mc L [facility] Immature Gran % 7.10 % [facility] Comment: Immature granulocytes(IG's)percentage and absolute count will include metamyelocytes, myelocytes, and promyelocytes. Blood smears from CBCs yielding IG's will be scanned manually for concordance. If this scan disagrees with the automated IG or if promyelocytes are noted, a manual differential will be performed. Immature Gran Absolute 2.00(H) 0.00 - 0.04 x10(3)/mc L [facility] Blood 08/20/2022 12:3 0 AM EDT 08/20/2022 12:32 AM EDT Narrative Resulting Agency Comment Spec In Lab Tyler Cobb MD HEMATOLOGY ORDERABLE S [facility] [address] * (ABNORMAL) Hemogram (08/20/2022 12:30 AM EDT) White Blood Cell 28.0(H) 4.0 - 9.5 x10(3)/[facility] Red Blood Cell 4.08 4.00 - 5.21 x10(6)/[facility] Hemoglobin 8.2(L) 11.7 - 15.5 g/dL [facility] Hematocrit 26.4(L) 35.7 - 45.8 % [facility] Mean Cell Volume 64.7(L) 82.6 - 94.4 fL [facility] Mean Cell Hemoglobin 20.1(L) 27.1 - 32.0 pg [facility] Mean Cell Hemoglobin Concentration 31.1(L) 31.7 - 35.0 g/dL [facility] Platelet 351 145 - 357 x10(3)/ L [facility] RDW Standard Deviation 63.9(H) 37.0 - 46.0 fL [facility] RDW coefficient of variation 29.8(H) 11.5 - 14.1 % [facility] Mean Platelet Volume 10.1 7.6 - 12.9 fL [facility] NRBC% auto 0.8 % [facility] NRBC Absolute 0.230(H) 0.000 - 0.000 x10(3)/ L [facility] Blood 08/20/2022 12:3 0 AM EDT 08/20/2022 12:32 AM EDT Narrative Resulting Agency Comment Spec In Lab Tyler Cobb MD HEMATOLOGY ORDERABLE S [facility] [place] [address] * (ABNORMAL) Basic Metabolic Panel (non-fasting) (08/20/2022 12:30 AM EDT) Glucose 188 65 - 199 mg/dL [facility] Comment:Diabetes: >=200 mg/d L plus symptoms Blood Urea Nitrogen 21(H) 8 - 18 mg/dL [facility] Creatinine 0.55(L) 0.70 - 1.20 mg/dL [facility] Sodium 144 135 - 145 mmol/L [facility] Potassium 4.1 3.5 - 5.0 mmol/L [facility] Comment: Please note: ??Patients with WBC >100,000 may have falsely elevated Potassium levels. ??For accurate Potassium quantification in these patients send serum separator tube (gold top) for subsequent determinations. ??Contact the Clinical Chemistry Laboratory if there are any questions. Chloride 107 98 - 107 mmol/L [facility] Carbon Dioxide 28 22 - 31 mmol/L [facility] Anion Gap 9 5 - 15 mmol/L [facility] Calcium 8.5 8.5 - 10.5 mg/dL [facility] Est Glomerular Filtration Rate 104 >=60 mL/min/1. 73 m?? [facility] Comment: This patient's estimated GFR was [...] In Lab Richard Pascal MD CHEMISTRY ORDERABLES [facility] [place] [address] * (ABNORMAL) Phosphorus (08/20/2022 12:30 AM EDT) Phosphorus 1.7(L) 2.5 - 4.5 mg/dL [facility] Blood 08/20/2022 12:3 0 AM EDT 08/20/2022 12:32 AM EDT Narrative Resulting Agency Comment Spec In Lab Richard Pascal MD CHEMISTRY ORDERABLES Performing Organization Address [facility] Co de Phone Number [facility] [place] [address] * Magnesium (08/20/2022 12:30 AM EDT) Magnesium 0.94 0.69 - 1.07 mmol/L [facility] Blood 08/20/2022 12:3 0 AM EDT 08/20/2022 12:32 AM EDT Narrative Resulting Agency Comment Spec In Lab Richard Pascal MD CHEMISTRY ORDERABLES Performing Organization Address [facility] Co de Phone Number [facility] [place] [address] * POCT Glucose (08/20/2022 12:27 AM EDT) Glucose, POC 177 65 - 199 mg/dL [facility] Comment: Supplemental ranges: <140 mg/dL before meals <180 mg/dL all other times of the day Blood 08/20/2022 12:2 7 AM EDT 08/20/2022 12:27 AM EDT Carlos Terry MD POINT OF CARE TEST O RDERABLES Performing Organization Address City/[facility]/ZIP Co de Phone Number [facility] [place] [address] * (ABNORMAL) POCT Glucose (08/19/2022 11:34 PM EDT) Glucose, POC 200(H) 65 - 199 mg/dL [facility] Comment: Supplemental ranges: <140 mg/dL before meals <180 mg/dL all other times of the day Blood 08/19/2022 11:3 4 PM EDT 08/19/2022 11:34 PM EDT Carlos Terry MD POINT OF CARE TEST O GABRIELLA Performing Organization Address [facility] Co de Phone Number [facility] [place] [address] * (ABNORMAL) POCT Glucose (08/19/2022 10:32 PM EDT) Glucose, POC 200(H) 65 - 199 mg/dL [facility] Comment: Supplemental ranges: <140 mg/dL before meals <180 mg/dL all other times of the day Blood 08/19/2022 10:3 2 PM EDT 08/19/2022 10:32 PM EDT Carlos Terry MD POINT OF CARE TEST O GABRIELLA Performing Organization Address [facility] de Phone Number [facility] [place] [address] * MRI Brain wo Contrast (08/19/2022 10:15 [...] who have questions please contact the health patient care technician instructor that requested your imaging first. ? Narrative [...] patients who have questions please contactthe health patient care technician instructor that requested your imaging first. Carlos Terry MD IMG MRI ORDERABLES * POCT Glucose (08/19/2022 7:08 PM EDT) Glucose, POC 165 65 - 199 mg/dL [facility] Comment: Supplemental ranges: <140 mg/dL before meals <180 mg/dL all other times of the day Blood 08/19/2022 7:08 PM EDT 08/19/2022 7:08 PM EDT Carlos Terry MD POINT OF CARE TEST O RDERABLES Performing Organization Address [facility] Co de Phone Number [facility] [place] [address] * POCT Glucose (08/19/2022 6:03 PM EDT) Glucose, POC 172 65 - 199 mg/dL [facility] Comment: Supplemental ranges: <140 mg/dL before meals <180 mg/dL all other times of the day Blood 08/19/2022 6:03 PM EDT 08/19/2022 6:03 PM EDT Carlos Terry MD POINT OF CARE TEST O RDERABLES [facility] [place] [address] * Blood culture (08/19/2022 5:20 PM EDT) Blood Culture No growth at 5 days. [facility] Blood 08/19/2022 5:20 PM EDT 08/19/2022 6:53 PM EDT Comment:RA Narrative Resulting Agency Comment Spec In Lab Carlos Terry MD MICROBIOLOGY - BLOOD ORDERABLES [facility] [place] [address] * POCT Glucose (08/19/2022 5:08 PM EDT) Glucose, POC 154 65 - 199 mg/dL [facility] Comment: Supplemental ranges: <140 mg/dL before meals <180 mg/dL all other times of the day Blood 08/19/2022 5:08 PM EDT 08/19/2022 5:08 PM EDT Carlos Terry MD POINT OF CARE TEST O RDERABLES Performing Organization Address [facility] Co de Phone Number [facility] [place] [address] * Place BEDSIDE PICC Line: Contact Vascular Access Page [phone] Is PICC procedure required PRIOR to patients discharge? No (08/19/2022 4:51 PM EDT) Narrative Carlos Arnold RN - 08/19/2022 4:51 PM EDT Carlos Arnold RN ? 08/19/2022 ??4:55 PM PICC/Midline Insertion Procedure Note Indications: Medication Administration This insertion was not to replace a malfunctioning catheter. This insertion was not due to a suspected line-associated infection. Location of Procedure: [facility] Risks and Benefits: The risks and benefits [...] to the planned procedure. Hand Hygiene: The hand inserter operator did perform hand hygiene prior to line insertion. Catheter type: PICC Lot number: [id number] Procedure Technique: Skin was prepped with chlorhexidine. [...] who have questions please contact the health patient care technician instructor that requested your imaging first. ? Narrative [...] patients who have questions please contactthe health patient care technician instructor that requested your imaging first. Carlos Terry MD IMG DX ORDERABLES * POCT Glucose (08/19/2022 3:15 PM EDT) Glucose, POC 177 65 - 199 mg/dL [facility] Comment: Supplemental ranges: <140 mg/dL before meals <180 mg/dL all other times of the day Blood 08/19/2022 3:15 PM EDT 08/19/2022 3:15 PM EDT Carlos Terry MD POINT OF CARE TEST O RDERABLES [facility] [place] [address] * Lower Respiratory Culture Sputum Induced (08/19/2022 2:51 PM EDT) Lower Respiratory Culture Rare mixed bacterial morphotypes suggestive of normal upper respiratory wiley [facility] Gram Stain Many Neutrophils seen Few squamous epithelial cells seen No microorganisms seen. [facility] Sputum Induced 08/19/2022 2: 51 PM EDT 08/19/2022 3:47 PM EDT Narrative Resulting Agency Comment Spec In Lab Carlos Terry MD MICROBIOLOGY - GENER AL ORDERABLES Performing Organization Address City/[facility]/ZIP Co de Phone Number [facility] [place] [address] * Lactate, whole blood, send to lab ([facility]) (08/19/2022 2:45 PM EDT) Lactate WB 1.6 0.5 - 2.2 mmol/L [facility] Blood 08/19/2022 2:45 PM EDT 08/19/2022 2:58 PM EDT Narrative Resulting Agency Comment Spec In Lab Carlos Terry MD CHEMISTRY ORDERABLES Performing Organization Address [facility] Co de Phone Number [facility] [place] [address] * (ABNORMAL) Urinalysis Microscopic Exam (08/19/2022 2:30 PM EDT) RBC, Urine 1 0 - 4 /HPF [facility] WBC, Urine 3 0 - 5 /HPF [facility] Bacteria, Urine Rare(A) None /HPF [facility] Budding Yeast, Urine Occasiona l(A) None /HPF [facility] Comment: Interpret results with caution, microscopic results are from suboptimal specimen volume Hyphae Yeast, Urine Occasiona l(A) None /HPF [facility] Squamous Epithelial Cells Raw Data, Urine 1 <=4 /HPF [facility] Hyaline Casts, Urine 2 0 - 2 /LPF [facility] Indwelling Catheter Urine 08/19/2022 2:30 PM EDT 08/19/2022 3:12 PM EDT Narrative Resulting Agency Comment Spec In Lab Neva Tomlin MD URINE ORDERABLES Performing Organization Address City/[facility]/ZIP Co de Phone Number [facility] [place] [address] * (ABNORMAL) Urinalysis with reflex Culture (08/19/2022 2:30 PM EDT) Glucose, Urine Dipstick 100(A) Negative mg/dL [facility] Protein, Urine Dipstick 30(A) Negative mg/dL [facility] Bilirubin, Urine Dipstick Negative Negative mg/dL [facility] Comment: Clinical correlation required for positive Urine Bilirubin results as false positive may occur with some drugs and drug related products. If a false positive is suspected a serum total bilirubin should be considered if clinically indicated. Urobilinogen, Urine Dipstick Normal Normal mg/dL [facility] pH, Urn (dipstick) 5.5 5.0 - 8.0 [facility] Blood, Urine Dipstick Large(A) Negative mg/dL [facility] Ketone, Urine Dipstick Negative Negative mg/dL [facility] Nitrite, Urine Dipstick Negative Negative [facility] Leukocytes, Urine Dipstick Trace(A) Negative mcL [facility] Appearance, Urine Dipstick Clear Clear [facility] Specific [place] Urine Automated 1.018 1.005 - 1.030 [facility] Color, Urine Dipstick Yellow Yellow [facility] Reflex to Culture No [facility] Indwelling Catheter Urine 08/19/2022 2:30 PM EDT 08/19/2022 3:12 PM EDT Narrative Resulting Agency Comment Spec In Lab Carlos Terry MD URINE ORDERABLES Performing Organization Address [facility] Co de Phone Number [facility] [place] [address] * Phosphorus (08/19/2022 1:45 PM EDT) Phosphorus 2.9 2.5 - 4.5 mg/dL [facility] Blood Venous Draw / Unknown 08/19/2022 1:45 PM EDT 08/19/2022 2:05 PM EDT Narrative Resulting Agency Comment Spec In Lab Neva Tomlin MD CHEMISTRY ORDERABLES Performing Organization Address City/[facility] Co de Phone Number [facility] [place] [address] * (ABNORMAL) Basic Metabolic Panel (non-fasting) (08/19/2022 1:45 PM EDT) Glucose 224(H) 65 - 199 mg/dL [facility] Comment:Diabetes: >=200 mg/d L plus symptoms Blood Urea Nitrogen 20(H) 8 - 18 mg/dL [facility] Creatinine 0.59(L) 0.70 - 1.20 mg/dL [facility] Sodium 145 135 - 145 mmol/L [facility] Potassium 4.1 3.5 - 5.0 mmol/L [facility] Comment: Please note: ??Patients with WBC >100,000 may have falsely elevated Potassium levels. ??For accurate Potassium quantification in these patients send serum separator tube (gold top) for subsequent determinations. ??Contact the Clinical Chemistry Laboratory if there are any questions. Chloride 106 98 - 107 mmol/L [facility] Carbon Dioxide 29 22 - 31 mmol/L [facility] Anion Gap 10 5 - 15 mmol/L [facility] Calcium 8.6 8.5 - 10.5 mg/dL [facility] Est Glomerular Filtration Rate 102 >=60 mL/min/1. 73 m?? [facility] Comment: This patient's estimated GFR was [...] In Lab Carlos Terry MD CHEMISTRY ORDERABLES [facility] [place] [address] * Blood culture (08/19/2022 1:30 PM EDT) Blood Culture No growth at 5 days. [facility] Blood 08/19/2022 1:30 PM EDT 08/19/2022 2:15 PM EDT Comment:L Hand Narrative Resulting Agency Comment Spec In Lab Carlos Terry MD MICROBIOLOGY - BLOOD ORDERABLES [facility] [place] [address] * XR Chest One View (08/19/2022 12:30 [...] who have questions please contact the health patient care technician instructor that requested your imaging first. ? Narrative 08/19/2022 3:14 PM EDT EXAMINATION: XR CHEST ONE VIEW CLINICAL HISTORY: febrile, altered, leukocytosis TECHNIQUE: 1 view of the chest ; AP portable 20 degrees upright COMPARISON: Chest radiograph 08/16/2022 FINDINGS: ET tube tip measures 3.0 cm above consuelo. Enteric catheter descends below the diaphragm and below the [id number]. Interval removal of right IJ approach PA [...] catheter descends below the diaphragm and below [id number]. Interval removal of right IJ approach PA [...] patients who have questions please contactthe health patient care technician instructor that requested your imaging first. Carlos Terry MD IMG DX ORDERABLES * POCT Glucose (08/19/2022 11:35 AM EDT) Glucose, POC 186 65 - 199 mg/dL [facility] Comment: Supplemental ranges: <140 mg/dL before meals <180 mg/dL all other times of the day Blood 08/19/2022 11:3 5 AM EDT 08/19/2022 11:35 AM EDT Carlos Terry MD POINT OF CARE TEST O RDERABLES Performing Organization Address City/State/[facility] Co de Phone Number [facility] [place] [address] * ECHO LMTD W CONTRAST W LMTD [...] 1960 ? Height: 152 cm ? Account: [id number] Age: 62 yrs ? Weight: 73 kg Gender: Female ?BSA: 1.7 m2 Ordering Physician: CARLOS TERRY Referring Physician: NIURKA AYALA Performed By: Thu Croft RDCS Reason For Study: Shock Interpreting Fellow: Hang Moreno. Exam Location: [facility]. Interpretation Summary -Left ventricular systolic function is [...] been no significant change. Procedure Limited - 12430. Doppler - 38057. Color Doppler - 31596. Image enhancement Optison was used for left [...] Date: 0:47 AMBP: 110/57 mmHg Patient Location: [place] [address] A HR: 110 : 1960 Height: 152 cm Account: [id number] Age: 62 yrs Weight: 73 kg Gender: Female BSA: 1.7 m2 Ordering Physician: CARLOS TERRY Referring Physician: NIURKA AYALA Performed By: Thu Croft RDCS Reason For Study: Shock Interpreting Fellow: Hang Moreno. Exam Location: [facility]. Interpretation Summary -Left ventricular systolic function is [...] has been no significantchange. Procedure Limited - 40607. Doppler - 64303. Color Doppler - 68656. Image enhancementOptison was used for left ventricular [...] Glucose, POC 189 65 - 199 mg/dL [facility] Comment: Supplemental ranges: <140 mg/dL before meals <180 mg/dL all other times of the day Blood 08/19/2022 9:49 AM EDT 08/19/2022 9:49 AM EDT Carlos Terry MD POINT OF CARE TEST O RDERABLES [facility] [place] [address] * (ABNORMAL) POCT Glucose (08/19/2022 7:57 AM EDT) Glucose, POC 229(H) 65 - 199 mg/dL [facility] Comment: Supplemental ranges: <140 mg/dL before meals <180 mg/dL all other times of the day Blood 08/19/2022 7:57 AM EDT 08/19/2022 7:57 AM EDT Carlos Terry MD POINT OF CARE TEST O RDERABLES Performing Organization Address [facility] Co de Phone Number [facility] [place] [address] * (ABNORMAL) POCT Glucose (08/19/2022 6:58 AM EDT) Glucose, POC 215(H) 65 - 199 mg/dL [facility] Comment: Supplemental ranges: <140 mg/dL before meals <180 mg/dL all other times of the day Blood 08/19/2022 6:58 AM EDT 08/19/2022 6:58 AM EDT Carlos Terry MD POINT OF CARE TEST O GABRIELLA Performing Organization Address [facility] Co de Phone Number [facility] [place] [address] * (ABNORMAL) BLOOD GAS 2 ARTERIAL (08/19/2022 5:07 AM EDT) pH, Arterial 7.54(H) 7.35 - 7.45 [facility] PCO2, Arterial 31(L) 35 - 45 mmHg [facility] PO2, Arterial 73(L) 85 - 104 mmHg [facility] Bicarbonate, Arterial 25.7 20.0 - 26.0 mmol/L [facility] Base Excess, Arterial 3.1(H) -3.0 - 3.0 mmol/L [facility] Hgb Blood Gas 9.3(L) 11.7 - 15.5 g/dL [facility] Oxyhemoglobin, Arterial 94.1 94.0 - 97.0 % [facility] Carboxyhemoglob in, Arterial 0.2 % [facility] Comment: Nonsmokers: 0.5-1.5% COHB Smokers: Variable, but usually less than 10% Toxic: 20-30% COHB Lethal: Greater than 60% COHB Methemoglobin, Arterial 0.9 <=1.5 % [facility] Na Whole Blood 142 135 - 145 mmol/L [facility] K Whole Blood 3.7 3.5 - 5.0 mmol/L [facility] Comment: Please note: Patients with WBC >100,000 may have falsely elevated Potassium levels. Contact the Clinical Chemistry Laboratory if there are any questions. ICa Whole Blood 1.14(L) 1.15 - 1.33 mmol/L [facility] Comment: Note: ??Total bilirubin higher than 20 mg/dL may lead to falsely low ionized calcium. CL Whole Blood 111(H) 98 - 107 mmol/L [facility] Gluc Whole Bld 178 65 - 199 mg/dL [facility] Comment:Diabetes: >=200 mg/d L plus symptoms. Lactate WB 1.2 0.5 - 2.2 mmol/L [facility] FIO2 Art 30 % [facility] PF Ratio Art 243 [facility] Blood 08/19/2022 5:07 AM EDT 08/19/2022 5:07 AM EDT Carlos Terry MD POINT OF CARE TEST O RDERABLES Performing Organization Address City/[facility]/ZIP Co de Phone Number [facility] [place] [address] * POCT Glucose (08/19/2022 3:08 AM EDT) Glucose, POC 176 65 - 199 mg/dL [facility] Comment: Supplemental ranges: <140 mg/dL before meals <180 mg/dL all other times of the day Blood 08/19/2022 3:08 AM EDT 08/19/2022 3:08 AM EDT Carlos Terry MD POINT OF CARE TEST O RDERABLES [facility] [place] [address] * CK (08/19/2022 1:20 AM EDT) Creatine Kinase 32 0 - 160 unit/L [facility] Blood Venous Draw / Unknown 08/19/2022 1:20 AM EDT 08/19/2022 1:26 AM EDT Narrative Resulting Agency Comment Spec In Lab Neva Tomlin MD [place] [address] * (ABNORMAL) Differential, Automated (08/19/2022 1:20 AM EDT) Neutrophil % 68.0 % [facility] Neutrophil Absolute 19.24(H) 1.70 - 6.10 x10(3)/mc L [facility] Lymph % 10.4 % [facility] Lymphocytes Abs 2.9 0.9 - 3.2 x10(3)/mc L [facility] Monocyte % 8.1 % [facility] Monocyte Abs 2.3(H) 0.3 - 0.9 x10(3)/mc L [facility] Eos % 0.4 % [facility] Eosinophils Abs 0.1 0.0 - 0.4 x10(3)/mc L [facility] Basophil % 0.6 % [facility] Baso Absolute 0.2(H) 0.0 - 0.1 x10(3)/mc L [facility] Immature Gran % 12.50 % [facility] Comment: Immature granulocytes(IG's)percentage and absolute count will include metamyelocytes, myelocytes, and promyelocytes. Blood smears from CBCs yielding IG's will be scanned manually for concordance. If this scan disagrees with the automated IG or if promyelocytes are noted, a manual differential will be performed. Immature Gran Absolute 3.52(H) 0.00 - 0.04 x10(3)/mc L [facility] Blood 08/19/2022 1:20 AM EDT 08/19/2022 1:25 AM EDT Narrative Resulting Agency Comment Spec In Lab Tyler Cobb MD HEMATOLOGY ORDERABLE S Performing Organization Address City/[facility]/[place] [address] * (ABNORMAL) Hemogram (08/19/2022 1:20 AM EDT) White Blood Cell 28.3(H) 4.0 - 9.5 x10(3)/mc L [facility] Red Blood Cell 4.35 4.00 - 5.21 x10(6)/mc L [facility] Hemoglobin 8.7(L) 11.7 - 15.5 g/dL [facility] Hematocrit 27.9(L) 35.7 - 45.8 % [facility] Mean Cell Volume 64.1(L) 82.6 - 94.4 fL [facility] Mean Cell Hemoglobin 20.0(L) 27.1 - 32.0 pg [facility] Mean Cell Hemoglobin Concentration 31.2(L) 31.7 - 35.0 g/dL [facility] Platelet 301 145 - 357 x10(3)/mc L [facility] RDW Standard Deviation 63.6(H) 37.0 - 46.0 fL [facility] RDW coefficient of variation 29.2(H) 11.5 - 14.1 % [facility] Mean Platelet Volume Not Measured 7.6 - 12.9 fL [facility] NRBC% auto 1.0 % [facility] NRBC Absolute 0.290(H) 0.000 - 0.000 x10(3)/ L [facility] Blood 08/19/2022 1:20 AM EDT 08/19/2022 1:25 AM EDT Narrative Resulting Agency Comment Spec In Lab Tyler Cobb MD HEMATOLOGY ORDERABLE S [facility] [address] * (ABNORMAL) Basic Metabolic Panel (non-fasting) (08/19/2022 1:20 AM EDT) Glucose 187 65 - 199 mg/dL [facility] Comment:Diabetes: >=200 mg/d L plus symptoms Blood Urea Nitrogen 18 8 - 18 mg/dL [facility] Creatinine 0.50(L) 0.70 - 1.20 mg/dL [facility] Sodium 142 135 - 145 mmol/L [facility] Potassium 3.8 3.5 - 5.0 mmol/L [facility] Comment: Please note: ??Patients with WBC >100,000 may have falsely elevated Potassium levels. ??For accurate Potassium quantification in these patients send serum separator tube (gold top) for subsequent determinations. ??Contact the Clinical Chemistry Laboratory if there are any questions. Chloride 108(H) 98 - 107 mmol/L [facility] Carbon Dioxide 25 22 - 31 mmol/L [facility] Anion Gap 9 5 - 15 mmol/L [facility] Calcium 8.4(L) 8.5 - 10.5 mg/dL [facility] Est Glomerular Filtration Rate 106 >=60 mL/min/1. 73 m?? [facility] Comment: This patient's estimated GFR was [...] Pascal MD CHEMISTRY ORDERABLES Performing Organization Address City/State/[facility] Co de Phone Number [facility] [place] [address] * (ABNORMAL) Phosphorus (08/19/2022 1:20 AM EDT) Phosphorus 1.4(Critic al) 2.5 - 4.5 mg/dL [facility] Comment:Called by: CORTNEY, Read back by: DIOMEDES LOCKHART, Date/Time:08/19/22 02:18. Blood 08/19/2022 1:20 AM EDT 08/19/2022 1:25 AM EDT Narrative Resulting Agency Comment Spec In Lab Richard Pascal MD CHEMISTRY ORDERABLES Performing Organization Address [facility] Co de Phone Number [facility] [place] [address] * Magnesium (08/19/2022 1:20 AM EDT) Magnesium 0.83 0.69 - 1.07 mmol/L [facility] Blood 08/19/2022 1:20 AM EDT 08/19/2022 1:25 AM EDT Narrative Resulting Agency Comment Spec In Lab Richard Pascal MD CHEMISTRY ORDERABLES Performing Organization Address [facility] de Phone Number [facility] [place] [address] * POCT Glucose (08/19/2022 1:19 AM EDT) Glucose, POC 169 65 - 199 mg/dL [facility] Comment: Supplemental ranges: <140 mg/dL before meals <180 mg/dL all other times of the day Blood 08/19/2022 1:19 AM EDT 08/19/2022 1:19 AM EDT Carlos Terry MD POINT OF CARE TEST O RDERABLES Performing Organization Address [facility] Co de Phone Number [facility] [place] [address] * POCT Glucose (08/18/2022 11:03 PM EDT) Glucose, POC 171 65 - 199 mg/dL [facility] Comment: Supplemental ranges: <140 mg/dL before meals <180 mg/dL all other times of the day Blood 08/18/2022 11:0 3 PM EDT 08/18/2022 11:03 PM EDT Carlos Terry MD POINT OF CARE TEST O RDERABLES Performing Organization Address [facility] Co de Phone Number [facility] [place] [address] * POCT Glucose (08/18/2022 9:05 PM EDT) Glucose, POC 148 65 - 199 mg/dL [facility] Comment: Supplemental ranges: <140 mg/dL before meals <180 mg/dL all other times of the day Blood 08/18/2022 9:05 PM EDT 08/18/2022 9:05 PM EDT Carlos Terry MD POINT OF CARE TEST O RDERABLES [facility] [place] [address] * POCT Glucose (08/18/2022 7:51 PM EDT) Glucose, POC 144 65 - 199 mg/dL [facility] Comment: Supplemental ranges: <140 mg/dL before meals <180 mg/dL all other times of the day Blood 08/18/2022 7:51 PM EDT 08/18/2022 7:51 PM EDT Carlos Terry MD POINT OF CARE TEST O RDERABLES [facility] [place] [address] * POCT Glucose (08/18/2022 6:31 PM EDT) Glucose, POC 175 65 - 199 mg/dL [facility] Comment: Supplemental ranges: <140 mg/dL before meals <180 mg/dL all other times of the day Blood 08/18/2022 6:31 PM EDT 08/18/2022 6:31 PM EDT Carlos Terry MD POINT OF CARE TEST O RDERABLES [facility] [place] [address] * POCT Glucose (08/18/2022 4:56 PM EDT) Glucose, POC 166 65 - 199 mg/dL [facility] Comment: Supplemental ranges: <140 mg/dL before meals <180 mg/dL all other times of the day Blood 08/18/2022 4:56 PM EDT 08/18/2022 4:56 PM EDT Carlos Terry MD POINT OF CARE TEST O HUGHERAREYMUNDO Performing Organization Address [facility] Co de Phone Number [facility] [place] [address] * (ABNORMAL) POCT Glucose (08/18/2022 3:35 PM EDT) Glucose, POC 207(H) 65 - 199 mg/dL [facility] Comment: Supplemental ranges: <140 mg/dL before meals <180 mg/dL all other times of the day Blood 08/18/2022 3:35 PM EDT 08/18/2022 3:35 PM EDT Carlos Terry MD POINT OF CARE TEST O GABRIELLA Performing Organization Address [facility] de Phone Number [facility] [place] [address] * CT Head wo Contrast (Generic) (08/18/2022 [...] who have questions please contact the health patient care technician instructor that requested your imaging first. ? Narrative [...] patients who have questions please contactthe health patient care technician instructor that requested your imaging first. Carlos Terry MD IMG CT ORDERABLES * POCT Glucose (08/18/2022 2:38 PM EDT) [facility] Signature Glucose, POC 194 65 - 199 mg/dL [facility] Comment: Supplemental ranges: <140 mg/dL before meals <180 mg/dL all other times of the day Blood 08/18/2022 2:38 PM EDT 08/18/2022 2:38 PM EDT Carlos Terry MD POINT OF CARE TEST O RDERABLES [facility] [place] [address] * EEG ROUTINE (08/18/2022 2:19 PM EDT) Narrative Tyree Martin MD - 08/18/2022 2:19 PM EDT Tyree Martin MD ? 08/18/2022 ??8:46 PM [facility] Department of Neurology Inpatient Routine EEG Report [...] DM, EtOH, esophagitis, who presented to [facility] 3 days ago after being found unresponsive at home. ??Patient found to have likely pneumonia +/- aspiration, newly reduced EF. ??Patient not on any sedation, not waking up. MEDICATIONS: -Depakote 500 mg x1 dose -Fentanyl gtt stopped 08/17 -Propofol gtt stopped 08/17 PRIOR EEG(s): -N/A METHODS: A 21 channel digitized electroencephalogram was performed in the [facility] Clinical Neurophysiology Laboratory. The 10/20 international system of electrode placement was used and bipolar and referential electrode montages were recorded. ??In addition to EEG the patient was monitored for EKG and lateral/vertical eye movements. Video was recorded during the session. RESEARCH GREENHOUSE SUPERVISOR'S REPORT: Performed by: Glendy MARCUS Patient was [...] final interpretation as written. Tyree Martin MD [facility] Department of Neurology Carlos Terry MD NEUROLOGY ORDERABLES * POCT Glucose (08/18/2022 1:53 PM EDT) Glucose, POC 174 65 - 199 mg/dL [facility] Comment: Supplemental ranges: <140 mg/dL before meals <180 mg/dL all other times of the day Blood 08/18/2022 1:53 PM EDT 08/18/2022 1:53 PM EDT Carlos Terry MD POINT OF CARE TEST O RDERABLES [facility] [place] [address] * POCT Glucose (08/18/2022 12:30 PM EDT) Glucose, POC 129 65 - 199 mg/dL [facility] Comment: Supplemental ranges: <140 mg/dL before meals <180 mg/dL all other times of the day Blood 08/18/2022 12:3 0 PM EDT 08/18/2022 12:30 PM EDT Carlos Terry MD POINT OF CARE TEST O RDERAREYMUNDO Performing Organization Address City/[facility]/ZIP Co de Phone Number [facility] [place] [address] * POCT Glucose (08/18/2022 11:12 AM EDT) Glucose, POC 113 65 - 199 mg/dL [facility] Comment: Supplemental ranges: <140 mg/dL before meals <180 mg/dL all other times of the day Blood 08/18/2022 11:1 2 AM EDT 08/18/2022 11:12 AM EDT Carlos Terry MD POINT OF CARE TEST O RDERAREYMUNDO [facility] [place] [address] * POCT Glucose (08/18/2022 10:37 AM EDT) Glucose, POC 121 65 - 199 mg/dL [facility] Comment: Supplemental ranges: <140 mg/dL before meals <180 mg/dL all other times of the day Blood 08/18/2022 10:3 7 AM EDT 08/18/2022 10:37 AM EDT Carlos Terry MD POINT OF CARE TEST O RDERABLES Performing Organization Address [facility] Co de Phone Number [facility] [place] [address] * Legionella Urinary Antigen (08/18/2022 10:13 AM EDT) Legionella Urinary Antigen Negative Negative [facility] Comment: A negative Legionella Urinary [...] AL ORDERABLES Performing Organization Address [facility] Co de Phone Number [facility] [place] [address] * POCT Glucose (08/18/2022 7:36 AM EDT) Glucose, POC 175 65 - 199 mg/dL [facility] Comment: Supplemental ranges: <140 mg/dL before meals <180 mg/dL all other times of the day Blood 08/18/2022 7:36 AM EDT 08/18/2022 7:36 AM EDT Carlos Terry MD POINT OF CARE TEST O RDERABLES Performing Organization Address [facility] Co de Phone Number [facility] [place] [address] * (ABNORMAL) BLOOD GAS 2 ARTERIAL (08/18/2022 6:15 AM EDT) pH, Arterial 7.51(H) 7.35 - 7.45 [facility] PCO2, Arterial 30(L) 35 - 45 mmHg [facility] PO2, Arterial 62(L) 85 - 104 mmHg [facility] Bicarbonate, Arterial 23.2 20.0 - 26.0 mmol/L [facility] Base Excess, Arterial 0.2 -3.0 - 3.0 mmol/L [facility] Hgb Blood Gas 10.2(L) 11.7 - 15.5 g/dL [facility] Oxyhemoglobin, Arterial 91.5(L) 94.0 - 97.0 % [facility] Carboxyhemoglob in, Arterial 0.5 % [facility] Comment: Nonsmokers: 0.5-1.5% COHB Smokers: Variable, but usually less than 10% Toxic: 20-30% COHB Lethal: Greater than 60% COHB Methemoglobin, Arterial 0.7 <=1.5 % [facility] Na Whole Blood 136 135 - 145 mmol/L [facility] K Whole Blood 3.7 3.5 - 5.0 mmol/L [facility] Comment: Please note: Patients with WBC >100,000 may have falsely elevated Potassium levels. Contact the Clinical Chemistry Laboratory if there are any questions. ICa Whole Blood 1.16 1.15 - 1.33 mmol/L [facility] Comment: Note: ??Total bilirubin higher than 20 mg/dL may lead to falsely low ionized calcium. CL Whole Blood 104 98 - 107 mmol/L [facility] Gluc Whole Bld 219(H) 65 - 199 mg/dL [facility] Comment:Diabetes: >=200 mg/d L plus symptoms. Lactate WB 1.6 0.5 - 2.2 mmol/L [facility] FIO2 Art 30 % [facility] PF Ratio Art 207 [facility] Blood 08/18/2022 6:15 AM EDT 08/18/2022 6:15 AM EDT Carlos Terry MD POINT OF CARE TEST O RDERABLES [facility] [place] [address] * POCT Glucose (08/18/2022 2:31 AM EDT) Glucose, POC 176 65 - 199 mg/dL [facility] Comment: Supplemental ranges: <140 mg/dL before meals <180 mg/dL all other times of the day Blood 08/18/2022 2:31 AM EDT 08/18/2022 2:31 AM EDT Carlos Terry MD POINT OF CARE TEST O RDERABLES Performing Organization Address City/[facility] Co de Phone Number [facility] [place] [address] * Scan, Peripheral Blood (08/18/2022 2:30 AM EDT) Plat estimate Normal [facility] RBC Morphology Abnormal [facility] Microcyte 6-10 /HPF [facility] Hypochromia Moderate [facility] Ovalocytes 1-5 /HPF [facility] Connor Cells 6-10 /HPF [facility] Plat, Giant Less than 1 /HPF [facility] Blood 08/18/2022 2:30 AM EDT 08/18/2022 2:36 AM EDT Narrative Resulting Agency Comment Spec In Lab Tyler Cobb MD HEMATOLOGY ORDERABLE S Performing Organization Address [facility] [place] [address] * (ABNORMAL) Differential, Automated (08/18/2022 2:30 AM EDT) Neutrophil % 69.7 % [facility] Neutrophil Absolute 16.91(H) 1.70 - 6.10 x10(3)/mc L [facility] Lymph % 8.7 % [facility] Lymphocytes Abs 2.1 0.9 - 3.2 x10(3)/mc L [facility] Monocyte % 8.4 % [facility] Monocyte Abs 2.0(H) 0.3 - 0.9 x10(3)/mc L [facility] Eos % 0.5 % [facility] Eosinophils Abs 0.1 0.0 - 0.4 x10(3)/mc L [facility] Basophil % 0.7 % [facility] Baso Absolute 0.2(H) 0.0 - 0.1 x10(3)/mc L [facility] Immature Gran % 12.00 % [facility] Comment: Immature granulocytes(IG's)percentage and absolute count will include metamyelocytes, myelocytes, and promyelocytes. Blood smears from CBCs yielding IG's will be scanned manually for concordance. If this scan disagrees with the automated IG or if promyelocytes are noted, a manual differential will be performed. Immature Gran Absolute 2.90(H) 0.00 - 0.04 x10(3)/mc L [facility] Blood 08/18/2022 2:30 AM EDT 08/18/2022 2:36 AM EDT Narrative Resulting Agency Comment Spec In Lab Tyler Cobb MD HEMATOLOGY ORDERABLE S Performing Organization Address City/State/[facility] Co de Phone Number [facility] [place] [address] * (ABNORMAL) Hemogram (08/18/2022 2:30 AM EDT) White Blood Cell 24.3(H) 4.0 - 9.5 x10(3)/mc L [facility] Red Blood Cell 4.39 4.00 - 5.21 x10(6)/mc L [facility] Hemoglobin 9.0(L) 11.7 - 15.5 g/dL [facility] Hematocrit 28.2(L) 35.7 - 45.8 % [facility] Mean Cell Volume 64.2(L) 82.6 - 94.4 fL [facility] Mean Cell Hemoglobin 20.5(L) 27.1 - 32.0 pg [facility] Mean Cell Hemoglobin Concentration 31.9 31.7 - 35.0 g/dL [facility] Platelet 226 145 - 357 x10(3)/mc L [facility] RDW Standard Deviation 63.0(H) 37.0 - 46.0 fL [facility] RDW coefficient of variation 29.1(H) 11.5 - 14.1 % [facility] Mean Platelet Volume Not Measured 7.6 - 12.9 fL [facility] NRBC% auto 0.2 % [facility] NRBC Absolute 0.050(H) 0.000 - 0.000 x10(3)/mc L [facility] Blood 08/18/2022 2:30 AM EDT 08/18/2022 2:36 AM EDT Narrative Resulting Agency Comment Spec In Lab Tyler Cobb MD HEMATOLOGY ORDERABLE S [facility] [place] [address] * (ABNORMAL) Basic Metabolic Panel (non-fasting) (08/18/2022 2:30 AM EDT) Glucose 178 65 - 199 mg/dL [facility] Comment:Diabetes: >=200 mg/d L plus symptoms Blood Urea Nitrogen 25(H) 8 - 18 mg/dL [facility] Creatinine 0.67(L) 0.70 - 1.20 mg/dL [facility] Sodium 139 135 - 145 mmol/L [facility] Potassium 4.2 3.5 - 5.0 mmol/L [facility] Comment: Please note: ??Patients with WBC >100,000 may have falsely elevated Potassium levels. ??For accurate Potassium quantification in these patients send serum separator tube (gold top) for subsequent determinations. ??Contact the Clinical Chemistry Laboratory if there are any questions. Chloride 104 98 - 107 mmol/L [facility] Carbon Dioxide 25 22 - 31 mmol/L [facility] Anion Gap 10 5 - 15 mmol/L [facility] Calcium 8.4(L) 8.5 - 10.5 mg/dL [facility] Est Glomerular Filtration Rate 99 >=60 mL/min/1. 73 m?? [facility] Comment: This patient's estimated GFR was [...] Pascal MD CHEMISTRY ORDERABLES Performing Organization Address City/[facility] Co de Phone Number [facility] [place] [address] * (ABNORMAL) Phosphorus (08/18/2022 2:30 AM EDT) Phosphorus 1.2(Critic al) 2.5 - 4.5 mg/dL [facility] Comment:Called by: IRMA, Read back by: Conner Kelsey, Date/Time:08/18/22 03:39. Blood 08/18/2022 2:30 AM EDT 08/18/2022 2:36 AM EDT Narrative Resulting Agency Comment Spec In Lab Richard Pascal MD CHEMISTRY ORDERABLES Performing Organization Address [facility] Co de Phone Number [facility] [place] [address] * Magnesium (08/18/2022 2:30 AM EDT) Magnesium 1.02 0.69 - 1.07 mmol/L [facility] Blood 08/18/2022 2:30 AM EDT 08/18/2022 2:36 AM EDT Narrative Resulting Agency Comment Spec In Lab Richard Pascal MD CHEMISTRY ORDERABLES Performing Organization Address [facility] Co de Phone Number [facility] [place] [address] * POCT Glucose (08/18/2022 1:15 AM EDT) Glucose, POC 168 65 - 199 mg/dL [facility] Comment: Supplemental ranges: <140 mg/dL before meals <180 mg/dL all other times of the day Blood 08/18/2022 1:15 AM EDT 08/18/2022 1:15 AM EDT Carlos Terry MD POINT OF CARE TEST O GABRIELLA Performing Organization Address City/State/[facility] Co de Phone Number [facility] [place] [address] * POCT Glucose (08/17/2022 11:04 PM EDT) Glucose, POC 188 65 - 199 mg/dL [facility] Comment: Supplemental ranges: <140 mg/dL before meals <180 mg/dL all other times of the day Blood 08/17/2022 11:0 4 PM EDT 08/17/2022 11:04 PM EDT Carlos Terry MD POINT OF CARE TEST O GABRIELLA Performing Organization Address [facility] Co de Phone Number [facility] [place] [address] * Potassium (08/17/2022 9:29 PM EDT) Potassium 3.5 3.5 - 5.0 mmol/L [facility] Comment: Please note: ??Patients with WBC [...] Pascal MD CHEMISTRY ORDERABLES Performing Organization Address City/[facility]/ZIP Co de Phone Number [facility] [place] [address] * POCT Glucose (08/17/2022 8:06 PM EDT) Glucose, POC 161 65 - 199 mg/dL [facility] Comment: Supplemental ranges: <140 mg/dL before meals <180 mg/dL all other times of the day Blood 08/17/2022 8:06 PM EDT 08/17/2022 8:06 PM EDT Carlos Terry MD POINT OF CARE TEST O RDERAREYMUNDO Performing Organization Address City/[facility] Co de Phone Number [facility] [place] [address] * POCT Glucose (08/17/2022 6:47 PM EDT) Glucose, POC 169 65 - 199 mg/dL [facility] Comment: Supplemental ranges: <140 mg/dL before meals <180 mg/dL all other times of the day Blood 08/17/2022 6:47 PM EDT 08/17/2022 6:47 PM EDT Carlos Terry MD POINT OF CARE TEST O RDERAREYMUNDO Performing Organization Address City/[facility] Co de Phone Number [facility] [place] [address] * POCT Glucose (08/17/2022 5:42 PM EDT) Glucose, POC 189 65 - 199 mg/dL [facility] Comment: Supplemental ranges: <140 mg/dL before meals <180 mg/dL all other times of the day Blood 08/17/2022 5:42 PM EDT 08/17/2022 5:42 PM EDT Carlos Terry MD POINT OF CARE TEST O HUGHERAREYMUNDO Performing Organization Address City/[facility] Co de Phone Number [facility] [place] [address] * POCT Glucose (08/17/2022 4:44 PM EDT) Glucose, POC 195 65 - 199 mg/dL [facility] Comment: Supplemental ranges: <140 mg/dL before meals <180 mg/dL all other times of the day Blood 08/17/2022 4:44 PM EDT 08/17/2022 4:44 PM EDT Carlos Terry MD POINT OF CARE TEST O RDERABLES Performing Organization Address [facility] Co de Phone Number [facility] [place] [address] * Potassium (08/17/2022 3:15 PM EDT) Potassium 3.6 3.5 - 5.0 mmol/L [facility] Comment: Please note: ??Patients with WBC [...] CHEMISTRY ORDERABLES Performing Organization Address [facility] Co de Phone Number [facility] [place] [address] * Vancomycin Level, Random (08/17/2022 3:15 PM EDT) Pathologist [facility] Vancomycin, Random 19.2 mg/L [facility] Comment: This level is for determination of the patient's vancomycin tfjk-tulip-haa-curve (AUC) value. Contact the inpatient pharmacy for interpretation. Blood 08/17/2022 3:15 PM EDT 08/17/2022 3:25 PM EDT Carlos Terry MD CHEMISTRY ORDERABLES Performing Organization Address City/[facility]/ZIP Co de Phone Number [facility] [place] [address] * POCT Glucose (08/17/2022 3:10 PM EDT) Glucose, POC 140 65 - 199 mg/dL [facility] Comment: Supplemental ranges: <140 mg/dL before meals <180 mg/dL all other times of the day Blood 08/17/2022 3:10 PM EDT 08/17/2022 3:10 PM EDT Carlos Terry MD POINT OF CARE TEST O RDERABLES Performing Organization Address City/[facility]/ZIP Co de Phone Number [facility] [place] [address] * POCT Glucose (08/17/2022 1:41 PM EDT) Glucose, POC 130 65 - 199 mg/dL [facility] LABORATORY Comment: Supplemental ranges: <140 mg/dL before meals <180 mg/dL all other times of the day Blood 08/17/2022 1:41 PM EDT 08/17/2022 1:41 PM EDT Carlos Terry MD POINT OF CARE TEST O RDERABLES Performing Organization Address [facility] Co de Phone Number [facility] [place] [address] * XR Abdomen 1 view (Generic) (08/17/2022 [...] who have questions please contact the health patient care technician instructor that requested your imaging first. ? Narrative [...] patients who have questions please contactthe health patient care technician instructor that requested your imaging first. Carlos Terry MD IMG DX ORDERABLES * POCT Glucose (08/17/2022 11:31 AM EDT) Glucose, POC 146 65 - 199 mg/dL [facility] Comment: Supplemental ranges: <140 mg/dL before meals <180 mg/dL all other times of the day Blood 08/17/2022 11:3 1 AM EDT 08/17/2022 11:31 AM EDT Carlos Terry MD POINT OF CARE TEST O RDERAREYMUNDO [facility] [place] [address] * POCT Glucose (08/17/2022 9:27 AM EDT) Glucose, POC 170 65 - 199 mg/dL [facility] Comment: Supplemental ranges: <140 mg/dL before meals <180 mg/dL all other times of the day Blood 08/17/2022 9:27 AM EDT 08/17/2022 9:27 AM EDT Carlos Terry MD POINT OF CARE TEST O RDERAREYMUNDO [facility] [place] [address] * POCT Glucose (08/17/2022 7:50 AM EDT) Glucose, POC 158 65 - 199 mg/dL [facility] Comment: Supplemental ranges: <140 mg/dL before meals <180 mg/dL all other times of the day Blood 08/17/2022 7:50 AM EDT 08/17/2022 7:50 AM EDT Carlos Terry MD POINT OF CARE TEST O RDERABLES [facility] [place] [address] * POCT Glucose (08/17/2022 6:53 AM EDT) Glucose, POC 155 65 - 199 mg/dL [facility] Comment: Supplemental ranges: <140 mg/dL before meals <180 mg/dL all other times of the day Blood 08/17/2022 6:53 AM EDT 08/17/2022 6:53 AM EDT Carlos Terry MD POINT OF CARE TEST O GABRIELLA Performing Organization Address City/[facility] Co de Phone Number [facility] [place] [address] * POCT Glucose (08/17/2022 6:18 AM EDT) Glucose, POC 166 65 - 199 mg/dL [facility] Comment: Supplemental ranges: <140 mg/dL before meals <180 mg/dL all other times of the day Blood 08/17/2022 6:18 AM EDT 08/17/2022 6:18 AM EDT Carlos Terry MD POINT OF CARE TEST O GABRIELLA Performing Organization Address [facility] Co de Phone Number [facility] [place] [address] * Heparin (unfractionated) Level (08/17/2022 6:15 AM EDT) UF Heparin 0.48 IU/mL [facility] Comment: Heparin [...] MD HEMATOLOGY ORDERABLE S Performing Organization Address City/[facility] Co de Phone Number [facility] [place] [address] * POCT Glucose (08/17/2022 5:20 AM EDT) Glucose, POC 165 65 - 199 mg/dL [facility] Comment: Supplemental ranges: <140 mg/dL before meals <180 mg/dL all other times of the day Blood 08/17/2022 5:20 AM EDT 08/17/2022 5:20 AM EDT Carlos Terry MD POINT OF CARE TEST O RDERABLES Performing Organization Address [facility] Co de Phone Number [facility] [place] [address] * POCT Glucose (08/17/2022 4:19 AM EDT) Glucose, POC 128 65 - 199 mg/dL [facility] Comment: Supplemental ranges: <140 mg/dL before meals <180 mg/dL all other times of the day Blood 08/17/2022 4:19 AM EDT 08/17/2022 4:19 AM EDT Carlos Terry MD POINT OF CARE TEST O RDERABLES Performing Organization Address City/[facility] Co de Phone Number [facility] [place] [address] * POCT Glucose (08/17/2022 2:51 AM EDT) Glucose, POC 129 65 - 199 mg/dL [facility] Comment: Supplemental ranges: <140 mg/dL before meals <180 mg/dL all other times of the day Blood 08/17/2022 2:51 AM EDT 08/17/2022 2:51 AM EDT Carlos Terry MD POINT OF CARE TEST O RDERABLES [facility] [place] [address] * POCT Glucose (08/17/2022 2:05 AM EDT) Glucose, POC 144 65 - 199 mg/dL [facility] Comment: Supplemental ranges: <140 mg/dL before meals <180 mg/dL all other times of the day Blood 08/17/2022 2:05 AM EDT 08/17/2022 2:05 AM EDT Carlos Terry MD POINT OF CARE TEST O RDERABLES Performing Organization Address [facility] Co de Phone Number [facility] [place] [address] * POCT Glucose (08/17/2022 1:36 AM EDT) Glucose, POC 147 65 - 199 mg/dL [facility] Comment: Supplemental ranges: <140 mg/dL before meals <180 mg/dL all other times of the day Blood 08/17/2022 1:36 AM EDT 08/17/2022 1:36 AM EDT Carlos Terry MD POINT OF CARE TEST O RDERABLES Performing Organization Address City/[facility]/ZIP Co de Phone Number [facility] [place] [address] * POCT Glucose (08/17/2022 1:07 AM EDT) Glucose, POC 134 65 - 199 mg/dL [facility] Comment: Supplemental ranges: <140 mg/dL before meals <180 mg/dL all other times of the day Blood 08/17/2022 1:07 AM EDT 08/17/2022 1:07 AM EDT Carlos Terry MD POINT OF CARE TEST O RDERABLES [facility] [place] [address] * (ABNORMAL) Basic Metabolic Panel (non-fasting) (08/17/2022 12:45 AM EDT) Glucose 157 65 - 199 mg/dL [facility] Comment:Diabetes: >=200 mg/d L plus symptoms Blood Urea Nitrogen 36(H) 8 - 18 mg/dL [facility] Creatinine 1.10 0.70 - 1.20 mg/dL [facility] Sodium 136 135 - 145 mmol/L [facility] Potassium Not Perf 3.5 - 5.0 [facility] Comment: Duplicate order Please note: ??Patients with WBC >100,000 may have falsely elevated Potassium levels. ??For accurate Potassium quantification in these patients send serum separator tube (gold top) for subsequent determinations. ??Contact the Clinical Chemistry Laboratory if there are any questions. Chloride 101 98 - 107 mmol/L [facility] Carbon Dioxide Not Perf 22 - 31 [facility] Comment:Add-on request. Samp le too old to perform test. Anion Gap Unable to Calculate 5 - 15 mmol/L [facility] Calcium 8.3(L) 8.5 - 10.5 mg/dL [facility] Est Glomerular Filtration Rate 57(L) >=60 mL/min/1 .73 m?? [facility] Comment: This patient's estimated GFR was [...] In Lab Tyler Cobb MD [place] [address] * Potassium (08/17/2022 12:45 AM EDT) [facility] Potassium 4.6 3.5 - 5.0 mmol/L [facility] Comment: Please note: ??Patients with WBC [...] In Lab Tyler Cobb MD CHEMISTRY ORDERABLES [facility] [place] [address] * (ABNORMAL) Differential, Automated (08/17/2022 12:45 AM EDT) [facility] Neutrophil % 75.1 % [facility] Neutrophil Absolute 13.95(H) 1.70 - 6.10 x10(3)/mc L [facility] Lymph % 9.5 % [facility] Lymphocytes Abs 1.8 0.9 - 3.2 x10(3)/mc L [facility] Monocyte % 9.5 % [facility] Monocyte Abs 1.8(H) 0.3 - 0.9 x10(3)/mc L [facility] Eos % 0.5 % [facility] Eosinophils Abs 0.1 0.0 - 0.4 x10(3)/mc L [facility] Basophil % 0.4 % [facility] Baso Absolute 0.1 0.0 - 0.1 x10(3)/mc L [facility] Immature Gran % 5.00 % [facility] Comment: Immature granulocytes(IG's)percentage and absolute count will include metamyelocytes, myelocytes, and promyelocytes. Blood smears from CBCs yielding IG's will be scanned manually for concordance. If this scan disagrees with the automated IG or if promyelocytes are noted, a manual differential will be performed. Immature Gran Absolute 0.93(H) 0.00 - 0.04 x10(3)/mc L [facility] Blood 08/17/2022 12:4 5 AM EDT 08/17/2022 12:57 AM EDT Narrative Resulting Agency Comment Spec In Lab Tyler Cobb MD HEMATOLOGY ORDERABLE S Performing Organization Address City/[facility] Co de Phone Number [facility] [place] [address] * (ABNORMAL) Hemogram (08/17/2022 12:45 AM EDT) White Blood Cell 18.6(H) 4.0 - 9.5 x10(3)/ L [facility] Red Blood Cell 4.00 4.00 - 5.21 x10(6)/[facility] Hemoglobin 8.2(L) 11.7 - 15.5 g/dL [facility] Hematocrit 26.0(L) 35.7 - 45.8 % [facility] Mean Cell Volume 65.0(L) 82.6 - 94.4 fL [facility] Mean Cell Hemoglobin 20.5(L) 27.1 - 32.0 pg [facility] Mean Cell Hemoglobin Concentration 31.5(L) 31.7 - 35.0 g/dL [facility] Platelet 176 145 - 357 x10(3)/ L [facility] RDW Standard Deviation 64.0(H) 37.0 - 46.0 fL [facility] RDW coefficient of variation 29.0(H) 11.5 - 14.1 % [facility] Mean Platelet Volume Not Measured 7.6 - 12.9 fL [facility] NRBC% auto 0.1 % [facility] NRBC Absolute 0.020(H) 0.000 - 0.000 x10(3)/mc L [facility] Blood 08/17/2022 12:4 5 AM EDT 08/17/2022 12:57 AM EDT Narrative Resulting Agency Comment Spec In Lab Tyler Cobb MD HEMATOLOGY ORDERABLE S Performing Organization Address City/[facility] Co de Phone Number [facility] [place] [address] * Heparin (unfractionated) Level (08/17/2022 12:45 AM EDT) UF Heparin 0.19 IU/mL [facility] Comment: Heparin (anti-Xa) levels should [...] ORDERABLE S Performing Organization Address [facility] Co de Phone Number [facility] [place] [address] * (ABNORMAL) Phosphorus (08/17/2022 12:45 AM EDT) Pathologist [facility] Phosphorus 2.2(L) 2.5 - 4.5 mg/dL [facility] Blood 08/17/2022 12:4 5 AM EDT 08/17/2022 12:57 AM EDT Narrative Resulting Agency Comment Spec In Lab Richard Pascal MD CHEMISTRY ORDERABLES Performing Organization Address [facility] Co de Phone Number [facility] [place] [address] * Magnesium (08/17/2022 12:45 AM EDT) Pathologist [facility] Magnesium 0.89 0.69 - 1.07 mmol/L [facility] Blood 08/17/2022 12:4 5 AM EDT 08/17/2022 12:57 AM EDT Narrative Resulting Agency Comment Spec In Lab Richard Pascal MD CHEMISTRY ORDERABLES Performing Organization Address [facility] Co de Phone Number [facility] [place] [address] * POCT Glucose (08/17/2022 12:02 AM EDT) Glucose, POC 147 65 - 199 mg/dL [facility] Comment: Supplemental ranges: <140 mg/dL before meals <180 mg/dL all other times of the day Blood 08/17/2022 12:0 2 AM EDT 08/17/2022 12:02 AM EDT Carlos Terry MD POINT OF CARE TEST O RDERABLES Performing Organization Address [facility] Co de Phone Number [facility] [place] [address] * POCT Glucose (08/16/2022 11:13 PM EDT) Glucose, POC 154 65 - 199 mg/dL [facility] Comment: Supplemental ranges: <140 mg/dL before meals <180 mg/dL all other times of the day Blood 08/16/2022 11:1 3 PM EDT 08/16/2022 11:13 PM EDT Carlos Terry MD POINT OF CARE TEST O RDERABLES Performing Organization Address [facility] Co de Phone Number [facility] [place] [address] * CT Head wo Contrast (Generic) (08/16/2022 [...] who have questions please contact the health patient care technician instructor that requested your imaging first. ? Electronically signed by: Moustapha Correa MD, [facility] ([phone]), at 08/16/2022 11:19 PM Narrative 08/16/2022 11:19 [...] patients who have questions please contactthe health patient care technician instructor that requested your imaging first. Carlos Terry MD IMG CT ORDERABLES * POCT Glucose (08/16/2022 10:12 PM EDT) Glucose, POC 184 65 - 199 mg/dL [facility] Comment: Supplemental ranges: <140 mg/dL before meals <180 mg/dL all other times of the day Blood 08/16/2022 10:1 2 PM EDT 08/16/2022 10:12 PM EDT Carlos Terry MD POINT OF CARE TEST O RDERABLES Performing Organization Address City/[facility]/ZIP Co de Phone Number [facility] [place] [address] * POCT Glucose (08/16/2022 9:23 PM EDT) Glucose, POC 183 65 - 199 mg/dL [facility] Comment: Supplemental ranges: <140 mg/dL before meals <180 mg/dL all other times of the day Blood 08/16/2022 9:23 PM EDT 08/16/2022 9:23 PM EDT Carlos Terry MD POINT OF CARE TEST O RDERABLES [facility] [place] [address] * (ABNORMAL) Coox2 (08/16/2022 8:12 PM EDT) pO2, Coox 29 mmHg [facility] Hgb Blood Gas 9.3(L) 11.7 - 15.5 g/dL [facility] Oxyhemoglobin, Coox 56.6 % [facility] Carboxyhemoglo bin, Coox 0.2 % [facility] Comment: Nonsmokers: 0.5-1.5% COHB Smokers: Variable, but usually less than 10% Toxic: 20-30% COHB Lethal: Greater than 60% COHB Methemoglobin, Coox 1.3 <=1.5 % [facility] Source Coox Mixed Venous [facility] Blood 08/16/2022 8:12 PM EDT 08/16/2022 8:12 PM EDT Carlos Terry MD POINT OF CARE TEST O RDERABLES [facility] [place] [address] * (ABNORMAL) BLOOD GAS 2 ARTERIAL (08/16/2022 8:09 PM EDT) pH, Arterial 7.48(H) 7.35 - 7.45 [facility] PCO2, Arterial 34(L) 35 - 45 mmHg [facility] PO2, Arterial 78(L) 85 - 104 mmHg [facility] Bicarbonate, Arterial 25.0 20.0 - 26.0 mmol/L [facility] Base Excess, Arterial 1.5 -3.0 - 3.0 mmol/L [facility] Hgb Blood Gas 9.4(L) 11.7 - 15.5 g/dL [facility] Oxyhemoglobin, Arterial 94.2 94.0 - 97.0 % [facility] Carboxyhemoglob in, Arterial 0.1 % [facility] Comment: Nonsmokers: 0.5-1.5% COHB Smokers: Variable, but usually less than 10% Toxic: 20-30% COHB Lethal: Greater than 60% COHB Methemoglobin, Arterial 0.9 <=1.5 % [facility] Na Whole Blood 133(L) 135 - 145 mmol/L [facility] K Whole Blood 4.6 3.5 - 5.0 mmol/L [facility] Comment: Please note: Patients with WBC >100,000 may have falsely elevated Potassium levels. Contact the Clinical Chemistry Laboratory if there are any questions. ICa Whole Blood 1.14(L) 1.15 - 1.33 mmol/L [facility] Comment: Note: ??Total bilirubin higher than 20 mg/dL may lead to falsely low ionized calcium. CL Whole Blood 102 98 - 107 mmol/L [facility] Gluc Whole Bld 180 65 - 199 mg/dL [facility] Comment:Diabetes: >=200 mg/d L plus symptoms. Lactate WB 1.5 0.5 - 2.2 mmol/L [facility] FIO2 Art 30 % [facility] PF Ratio Art 260 [facility] Blood 08/16/2022 8:09 PM EDT 08/16/2022 8:09 PM EDT Carlos Terry MD POINT OF CARE TEST O RDERABLES [facility] [place] [address] * (ABNORMAL) Basic Metabolic Panel (non-fasting) (08/16/2022 6:00 PM EDT) Glucose 181 65 - 199 mg/dL [facility] Comment:Diabetes: >=200 mg/d L plus symptoms Blood Urea Nitrogen 37(H) 8 - 18 mg/dL [facility] Creatinine 1.15 0.70 - 1.20 mg/dL [facility] Sodium 136 135 - 145 mmol/L [facility] Potassium 4.4 3.5 - 5.0 mmol/L [facility] Comment: Please note: ??Patients with WBC >100,000 may have falsely elevated Potassium levels. ??For accurate Potassium quantification in these patients send serum separator tube (gold top) for subsequent determinations. ??Contact the Clinical Chemistry Laboratory if there are any questions. Chloride 100 98 - 107 mmol/L [facility] Carbon Dioxide 24 22 - 31 mmol/L [facility] Anion Gap 12 5 - 15 mmol/L [facility] Calcium 8.4(L) 8.5 - 10.5 mg/dL [facility] Est Glomerular Filtration Rate 54(L) >=60 mL/min/1. 73 m?? [facility] Comment: This patient's estimated GFR was [...] In Lab Carlos Terry MD CHEMISTRY ORDERABLES [facility] [place] [address] * (ABNORMAL) BLOOD GAS 2 ARTERIAL (08/16/2022 5:59 PM EDT) pH, Arterial 7.53(H) 7.35 - 7.45 [facility] PCO2, Arterial 26(L) 35 - 45 mmHg [facility] PO2, Arterial 48(Critica l) 85 - 104 mmHg [facility] Comment:Noted by framing mill operator. Bicarbonate, Arterial 21.2 20.0 - 26.0 mmol/L [facility] Base Excess, Arterial -1.5 -3.0 - 3.0 mmol/L [facility] Hgb Blood Gas 9.5(L) 11.7 - 15.5 g/dL [facility] Oxyhemoglobin, Arterial 86.1(L) 94.0 - 97.0 % [facility] Carboxyhemoglob in, Arterial 0.6 % [facility] Comment: Nonsmokers: 0.5-1.5% COHB Smokers: Variable, but usually less than 10% Toxic: 20-30% COHB Lethal: Greater than 60% COHB Methemoglobin, Arterial 0.8 <=1.5 % [facility] Na Whole Blood 132(L) 135 - 145 mmol/L [facility] K Whole Blood 4.1 3.5 - 5.0 mmol/L [facility] Comment: Please note: Patients with WBC >100,000 may have falsely elevated Potassium levels. Contact the Clinical Chemistry Laboratory if there are any questions. ICa Whole Blood 1.13(L) 1.15 - 1.33 mmol/L [facility] Comment: Note: ??Total bilirubin higher than 20 mg/dL may lead to falsely low ionized calcium. CL Whole Blood 102 98 - 107 mmol/L [facility] Gluc Whole Bld 158 65 - 199 mg/dL [facility] Comment:Diabetes: >=200 mg/d L plus symptoms. Lactate WB 1.3 0.5 - 2.2 mmol/L [facility] FIO2 Art 21 % [facility] PF Ratio Art 229 [facility] Blood 08/16/2022 5:59 PM EDT 08/16/2022 5:59 PM EDT Carlos Terry MD POINT OF CARE TEST O RDERABLES Performing Organization Address City/State/[facility] Co de Phone Number [facility] [place] [address] * (ABNORMAL) BLOOD GAS 2 ARTERIAL (08/16/2022 4:02 PM EDT) pH, Arterial 7.53(H) 7.35 - 7.45 [facility] PCO2, Arterial 30(L) 35 - 45 mmHg [facility] PO2, Arterial 55(L) 85 - 104 mmHg [facility] Bicarbonate, Arterial 24.9 20.0 - 26.0 mmol/L [facility] Base Excess, Arterial 2.1 -3.0 - 3.0 mmol/L [facility] Hgb Blood Gas 9.3(L) 11.7 - 15.5 g/dL [facility] Oxyhemoglobin, Arterial 88.5(L) 94.0 - 97.0 % [facility] Carboxyhemoglob in, Arterial 1.0 % [facility] Comment: Nonsmokers: 0.5-1.5% COHB Smokers: Variable, but usually less than 10% Toxic: 20-30% COHB Lethal: Greater than 60% COHB Methemoglobin, Arterial 0.9 <=1.5 % [facility] Na Whole Blood 133(L) 135 - 145 mmol/L [facility] K Whole Blood 4.7 3.5 - 5.0 mmol/L [facility] Comment: Please note: Patients with WBC >100,000 may have falsely elevated Potassium levels. Contact the Clinical Chemistry Laboratory if there are any questions. ICa Whole Blood 1.15 1.15 - 1.33 mmol/L [facility] Comment: Note: ??Total bilirubin higher than 20 mg/dL may lead to falsely low ionized calcium. CL Whole Blood 102 98 - 107 mmol/L [facility] Gluc Whole Bld 130 65 - 199 mg/dL [facility] Comment:Diabetes: >=200 mg/d L plus symptoms. Lactate WB 1.5 0.5 - 2.2 mmol/L [facility] FIO2 Art 21 % [facility] PF Ratio Art 262 [facility] Blood 08/16/2022 4:02 PM EDT 08/16/2022 4:02 PM EDT Carlos Terry MD POINT OF CARE TEST O RDERABLES Performing Organization Address [facility] Co de Phone Number [facility] [place] [address] * (ABNORMAL) Coox2 (08/16/2022 3:58 PM EDT) pO2, Coox 24 mmHg [facility] Hgb Blood Gas 9.4(L) 11.7 - 15.5 g/dL [facility] Oxyhemoglobin, Coox 50.5 % [facility] Carboxyhemoglo bin, Coox 0.5 % [facility] Comment: Nonsmokers: 0.5-1.5% COHB Smokers: Variable, but usually less than 10% Toxic: 20-30% COHB Lethal: Greater than 60% COHB Methemoglobin, Coox 1.1 <=1.5 % [facility] Source Coox Mixed Venous [facility] Blood 08/16/2022 3:58 PM EDT 08/16/2022 3:58 PM EDT Carlos Terry MD POINT OF CARE TEST O RDERABLES Performing Organization Address City/[facility] Co de Phone Number [facility] [place] [address] * POCT Glucose (08/16/2022 2:15 PM EDT) Glucose, POC 88 65 - 199 mg/dL [facility] Comment: Supplemental ranges: <140 mg/dL before meals <180 mg/dL all other times of the day Blood 08/16/2022 2:15 PM EDT 08/16/2022 2:15 PM EDT Carlos Terry MD POINT OF CARE TEST O GABRIELLA Performing Organization Address City/[facility] Co de Phone Number [facility] [place] [address] * POCT Glucose (08/16/2022 1:11 PM EDT) Glucose, POC 77 65 - 199 mg/dL [facility] Comment: Supplemental ranges: <140 mg/dL before meals <180 mg/dL all other times of the day Blood 08/16/2022 1:11 PM EDT 08/16/2022 1:11 PM EDT Carlos Terry MD POINT OF CARE TEST O GABRIELLA Performing Organization Address [facility] Co de Phone Number [facility] [place] [address] * (ABNORMAL) BLOOD GAS 2 ARTERIAL (08/16/2022 12:16 PM EDT) pH, Arterial 7.52(H) 7.35 - 7.45 [facility] PCO2, Arterial 30(L) 35 - 45 mmHg [facility] PO2, Arterial 59(L) 85 - 104 mmHg [facility] Bicarbonate, Arterial 24.2 20.0 - 26.0 mmol/L [facility] Base Excess, Arterial 1.5 -3.0 - 3.0 mmol/L [facility] Hgb Blood Gas 9.6(L) 11.7 - 15.5 g/dL [facility] Oxyhemoglobin, Arterial 91.1(L) 94.0 - 97.0 % [facility] Carboxyhemoglob in, Arterial 1.0 % [facility] Comment: Nonsmokers: 0.5-1.5% COHB Smokers: Variable, but usually less than 10% Toxic: 20-30% COHB Lethal: Greater than 60% COHB Methemoglobin, Arterial 0.7 <=1.5 % [facility] Na Whole Blood 132(L) 135 - 145 mmol/L [facility] K Whole Blood 3.4(L) 3.5 - 5.0 mmol/L [facility] Comment: Please note: Patients with WBC >100,000 may have falsely elevated Potassium levels. Contact the Clinical Chemistry Laboratory if there are any questions. ICa Whole Blood 1.16 1.15 - 1.33 mmol/L [facility] Comment: Note: ??Total bilirubin higher than 20 mg/dL may lead to falsely low ionized calcium. CL Whole Blood 101 98 - 107 mmol/L [facility] Gluc Whole Bld 86 65 - 199 mg/dL [facility] Comment:Diabetes: >=200 mg/d L plus symptoms. Lactate WB 1.8 0.5 - 2.2 mmol/L [facility] FIO2 Art 21 % [facility] PF Ratio Art 281 [facility] Blood 08/16/2022 12:1 6 PM EDT 08/16/2022 12:16 PM EDT Carlos Terry MD POINT OF CARE TEST O RDERABLES [facility] [place] [address] * (ABNORMAL) Coox2 (08/16/2022 12:11 PM EDT) pO2, Coox 27 mmHg [facility] Hgb Blood Gas 9.2(L) 11.7 - 15.5 g/dL [facility] Oxyhemoglobin, Coox 56.0 % [facility] Carboxyhemoglo bin, Coox 0.9 % [facility] Comment: Nonsmokers: 0.5-1.5% COHB Smokers: Variable, but usually less than 10% Toxic: 20-30% COHB Lethal: Greater than 60% COHB Methemoglobin, Coox 0.7 <=1.5 % [facility] Source Coox Mixed Venous [facility] Blood 08/16/2022 12:1 1 PM EDT 08/16/2022 12:11 PM EDT Carlos Terry MD POINT OF CARE TEST O GABRIELLA Performing Organization Address [facility] Co de Phone Number [facility] [place] [address] * (ABNORMAL) Coox2 (08/16/2022 11:17 AM EDT) pO2, Coox 24 mmHg [facility] Hgb Blood Gas 9.5(L) 11.7 - 15.5 g/dL [facility] Oxyhemoglobin, Coox 49.3 % [facility] Carboxyhemoglo bin, Coox 0.3 % [facility] Comment: Nonsmokers: 0.5-1.5% COHB Smokers: Variable, but usually less than 10% Toxic: 20-30% COHB Lethal: Greater than 60% COHB Methemoglobin, Coox 0.9 <=1.5 % [facility] Source Coox Mixed Venous [facility] Blood 08/16/2022 11:1 7 AM EDT 08/16/2022 11:17 AM EDT Carlos Terry MD POINT OF CARE TEST Chepe QUIROZ Performing Organization Address [facility] Co de Phone Number [facility] [place] [address] * XR Chest One View (08/16/2022 10:31 [...] who have questions please contact the health patient care technician instructor that requested your imaging first. ? Narrative [...] patients who have questions please contactthe health patient care technician instructor that requested your imaging first. Carlos Terry MD IMG DX ORDERABLES * (ABNORMAL) Coox2 (08/16/2022 9:48 AM EDT) pO2, Coox 27 mmHg [facility] Hgb Blood Gas 10.0(L) 11.7 - 15.5 g/dL [facility] Oxyhemoglobin, Coox 56.5 % [facility] Carboxyhemoglo bin, Coox 0.5 % [facility] Comment: Nonsmokers: 0.5-1.5% COHB Smokers: Variable, but usually less than 10% Toxic: 20-30% COHB Lethal: Greater than 60% COHB Methemoglobin, Coox 0.9 <=1.5 % [facility] Source Coox Mixed Venous [facility] Blood 08/16/2022 9:48 AM EDT 08/16/2022 9:48 AM EDT Carlos Terry MD POINT OF CARE TEST O RDERABLES Performing Organization Address [facility] Co de Phone Number [facility] [place] [address] * POCT Glucose (08/16/2022 9:47 AM EDT) Glucose, POC 159 65 - 199 mg/dL [facility] Comment: Supplemental ranges: <140 mg/dL before meals <180 mg/dL all other times of the day Blood 08/16/2022 9:47 AM EDT 08/16/2022 9:47 AM EDT Carlos Terry MD POINT OF CARE TEST O RDERABLES Performing Organization Address City/State/[facility] Co de Phone Number [facility] [place] [address] * (ABNORMAL) Coox2 (08/16/2022 8:20 AM EDT) pO2, Coox 26 mmHg [facility] Hgb Blood Gas 9.9(L) 11.7 - 15.5 g/dL [facility] Oxyhemoglobin, Coox 48.7 % [facility] Carboxyhemoglo bin, Coox 0.6 % [facility] Comment: Nonsmokers: 0.5-1.5% COHB Smokers: Variable, but usually less than 10% Toxic: 20-30% COHB Lethal: Greater than 60% COHB Methemoglobin, Coox 1.0 <=1.5 % [facility] Source Coox Mixed Venous [facility] Blood 08/16/2022 8:20 AM EDT 08/16/2022 8:20 AM EDT Carlos Terry MD POINT OF CARE TEST O RDERABLES [facility] [place] [address] * (ABNORMAL) BLOOD GAS 2 ARTERIAL (08/16/2022 8:17 AM EDT) pH, Arterial 7.46(H) 7.35 - 7.45 [facility] PCO2, Arterial 36 35 - 45 mmHg [facility] PO2, Arterial 68(L) 85 - 104 mmHg [facility] Bicarbonate, Arterial 24.8 20.0 - 26.0 mmol/L [facility] Base Excess, Arterial 1.0 -3.0 - 3.0 mmol/L [facility] Hgb Blood Gas 10.0(L) 11.7 - 15.5 g/dL [facility] Oxyhemoglobin, Arterial 92.7(L) 94.0 - 97.0 % [facility] Carboxyhemoglob in, Arterial 0.3 % [facility] Comment: Nonsmokers: 0.5-1.5% COHB Smokers: Variable, but usually less than 10% Toxic: 20-30% COHB Lethal: Greater than 60% COHB Methemoglobin, Arterial 0.8 <=1.5 % [facility] Na Whole Blood 134(L) 135 - 145 mmol/L [facility] K Whole Blood 3.6 3.5 - 5.0 mmol/L [facility] Comment: Please note: Patients with WBC >100,000 may have falsely elevated Potassium levels. Contact the Clinical Chemistry Laboratory if there are any questions. ICa Whole Blood 1.14(L) 1.15 - 1.33 mmol/L [facility] Comment: Note: ??Total bilirubin higher than 20 mg/dL may lead to falsely low ionized calcium. CL Whole Blood 101 98 - 107 mmol/L [facility] Gluc Whole Bld 168 65 - 199 mg/dL [facility] Comment:Diabetes: >=200 mg/d L plus symptoms. Lactate WB 2.2 0.5 - 2.2 mmol/L [facility] FIO2 Art 21 % [facility] PF Ratio Art 324 [facility] Blood 08/16/2022 8:17 AM EDT 08/16/2022 8:17 AM EDT Carlos Terry MD POINT OF CARE TEST O RDERABLES Performing Organization Address [facility] Co de Phone Number [facility] [place] [address] * Potassium (08/16/2022 8:10 AM EDT) Potassium 3.7 3.5 - 5.0 mmol/L [facility] Comment: Please note: ??Patients with WBC [...] CHEMISTRY ORDERABLES Performing Organization Address [facility] Co de Phone Number [facility] [place] [address] * (ABNORMAL) Troponin (08/16/2022 8:10 AM EDT) Troponin-T, High Sensitivity 251(H) <=14 ng/L [facility] Comment: This patient's troponin T concentration [...] troponin value can be found in the [facility] Laboratory Test Catalog Troponin - [facility] Test Catalog Reference: Fourth [place] Definition of Myocardial Infarction. Journal of the [place] [employer] 2018;72:4434-6004 Blood 08/16/2022 8:10 AM EDT 08/16/2022 8:28 AM EDT Narrative Resulting Agency Comment Spec In Lab Carlos Terry MD CHEMISTRY ORDERABLES Performing Organization Address City/[facility]/ZIP Co de Phone Number [facility] [place] [address] * POCT Glucose (08/16/2022 5:54 AM EDT) Glucose, POC 194 65 - 199 mg/dL [facility] Comment: Supplemental ranges: <140 mg/dL before meals <180 mg/dL all other times of the day Blood 08/16/2022 5:54 AM EDT 08/16/2022 5:54 AM EDT Carlos Terry MD POINT OF CARE TEST O RDERABLES Performing Organization Address City/[facility]/ZIP Co de Phone Number [facility] [place] [address] * (ABNORMAL) Coox2 (08/16/2022 4:44 AM EDT) pO2, Coox 27 mmHg [facility] Hgb Blood Gas 9.8(L) 11.7 - 15.5 g/dL [facility] Oxyhemoglobin, Coox 54.2 % [facility] Carboxyhemoglo bin, Coox 0.8 % [facility] Comment: Nonsmokers: 0.5-1.5% COHB Smokers: Variable, but usually less than 10% Toxic: 20-30% COHB Lethal: Greater than 60% COHB Methemoglobin, Coox 1.0 <=1.5 % [facility] Source Coox Mixed Venous [facility] Blood 08/16/2022 4:44 AM EDT 08/16/2022 4:44 AM EDT Carlos Terry MD POINT OF CARE TEST O RDERABLES [facility] [place] [address] * (ABNORMAL) BLOOD GAS 2 ARTERIAL (08/16/2022 4:41 AM EDT) pH, Arterial 7.47(H) 7.35 - 7.45 [facility] PCO2, Arterial 34(L) 35 - 45 mmHg [facility] PO2, Arterial 71(L) 85 - 104 mmHg [facility] Bicarbonate, Arterial 24.5 20.0 - 26.0 mmol/L [facility] Base Excess, Arterial 0.9 -3.0 - 3.0 mmol/L [facility] Hgb Blood Gas 10.8(L) 11.7 - 15.5 g/dL [facility] Oxyhemoglobin, Arterial 93.2(L) 94.0 - 97.0 % [facility] Carboxyhemoglob in, Arterial 0.7 % [facility] Comment: Nonsmokers: 0.5-1.5% COHB Smokers: Variable, but usually less than 10% Toxic: 20-30% COHB Lethal: Greater than 60% COHB Methemoglobin, Arterial 0.8 <=1.5 % [facility] Na Whole Blood 133(L) 135 - 145 mmol/L [facility] K Whole Blood 3.9 3.5 - 5.0 mmol/L [facility] Comment: Please note: Patients with WBC >100,000 may have falsely elevated Potassium levels. Contact the Clinical Chemistry Laboratory if there are any questions. ICa Whole Blood 1.10(L) 1.15 - 1.33 mmol/L [facility] Comment: Note: ??Total bilirubin higher than 20 mg/dL may lead to falsely low ionized calcium. CL Whole Blood 102 98 - 107 mmol/L [facility] Gluc Whole Bld 216(H) 65 - 199 mg/dL [facility] Comment:Diabetes: >=200 mg/d L plus symptoms. Lactate WB 1.7 0.5 - 2.2 mmol/L [facility] FIO2 Art 25 % [facility] PF Ratio Art 284 [facility] Blood 08/16/2022 4:41 AM EDT 08/16/2022 4:41 AM EDT Carlos Terry MD POINT OF CARE TEST O RDERABLES Performing Organization Address [facility] Co de Phone Number [facility] [place] [address] * Scan, Peripheral Blood (08/16/2022 3:36 AM EDT) Plat estimate Normal [facility] RBC Morphology Abnormal [facility] Ovalocytes 1-5 /HPF [facility] Huron Cells 6-10 /HPF [facility] Toxic Granulation Present [facility] Dohle Bodies Present [facility] Blood 08/16/2022 3:36 AM EDT 08/16/2022 3:43 AM EDT Narrative Resulting Agency Comment Spec In Lab Tyler Cobb MD HEMATOLOGY ORDERABLE S Performing Organization Address [facility] Co de Phone Number [facility] [place] [address] * (ABNORMAL) Differential, Automated (08/16/2022 3:36 AM EDT) Neutrophil % 82.1 % [facility] Neutrophil Absolute 24.49(H) 1.70 - 6.10 x10(3)/mc L [facility] Lymph % 6.3 % [facility] Lymphocytes Abs 1.9 0.9 - 3.2 x10(3)/mc L [facility] Monocyte % 7.4 % [facility] Monocyte Abs 2.2(H) 0.3 - 0.9 x10(3)/ L [facility] Eos % 0.1 % [facility] Eosinophils Abs 0.0 0.0 - 0.4 x10(3)/[facility] Basophil % 0.5 % [facility] Baso Absolute 0.2(H) 0.0 - 0.1 x10(3)/ L [facility] Immature Gran % 3.60 % [facility] Comment: Immature granulocytes(IG's)percentage and absolute count will include metamyelocytes, myelocytes, and promyelocytes. Blood smears from CBCs yielding IG's will be scanned manually for concordance. If this scan disagrees with the automated IG or if promyelocytes are noted, a manual differential will be performed. Immature Gran Absolute 1.06(H) 0.00 - 0.04 x10(3)/ L [facility] Blood 08/16/2022 3:36 AM EDT 08/16/2022 3:43 AM EDT Narrative Resulting Agency Comment Spec In Lab Tyler Cobb MD HEMATOLOGY ORDERABLE S [facility] [place] [address] * (ABNORMAL) Hemogram (08/16/2022 3:36 AM EDT) White Blood Cell 29.8(H) 4.0 - 9.5 x10(3)/mc L [facility] Red Blood Cell 4.63 4.00 - 5.21 x10(6)/mc L [facility] Hemoglobin 9.3(L) 11.7 - 15.5 g/dL [facility] Hematocrit 29.8(L) 35.7 - 45.8 % [facility] Mean Cell Volume 64.4(L) 82.6 - 94.4 fL [facility] Mean Cell Hemoglobin 20.1(L) 27.1 - 32.0 pg [facility] Mean Cell Hemoglobin Concentration 31.2(L) 31.7 - 35.0 g/dL [facility] Platelet 295 145 - 357 x10(3)/mc L [facility] RDW Standard Deviation 64.3(H) 37.0 - 46.0 fL [facility] RDW coefficient of variation 29.2(H) 11.5 - 14.1 % [facility] Mean Platelet Volume Not Measured 7.6 - 12.9 fL [facility] NRBC% auto 0.5 % [facility] NRBC Absolute 0.150(H) 0.000 - 0.000 x10(3)/mc L [facility] Blood 08/16/2022 3:36 AM EDT 08/16/2022 3:43 AM EDT Narrative Resulting Agency Comment Spec In Lab Tyler Cobb MD HEMATOLOGY ORDERABLE S Performing Organization Address City/State/[facility] Co de Phone Number [facility] [place] [address] * (ABNORMAL) Troponin (08/16/2022 3:36 AM EDT) Troponin-T, High Sensitivity 316(H) <=14 ng/L [facility] Comment: This patient's troponin T concentration [...] troponin value can be found in the [facility] Laboratory Test Catalog Troponin - [facility] Test Catalog Reference: Fourth [place] Definition of Myocardial Infarction. Journal of the [place] [employer] 2018;72:7886-6143 Blood 08/16/2022 3:36 AM EDT 08/16/2022 3:43 AM EDT Narrative Resulting Agency Comment Spec In Lab Carlos Terry MD CHEMISTRY ORDERABLES Performing Organization Address [facility]/ZIP Co de Phone Number [facility] [place] [address] * Heparin (unfractionated) Level (08/16/2022 3:36 AM EDT) UF Heparin 0.30 IU/mL [facility] Comment: Heparin (anti-Xa) [...] ORDERABLE S Performing Organization Address [facility]/ZIP Co de Phone Number [facility] [place] [address] * (ABNORMAL) Basic Metabolic Panel (non-fasting) (08/16/2022 3:36 AM EDT) Glucose 213(H) 65 - 199 mg/dL [facility] Comment:Diabetes: >=200 mg/d L plus symptoms Blood Urea Nitrogen 37(H) 8 - 18 mg/dL [facility] Creatinine 1.42(H) 0.70 - 1.20 mg/dL [facility] Sodium 138 135 - 145 mmol/L [facility] Potassium 4.1 3.5 - 5.0 mmol/L [facility] Comment: Please note: ??Patients with WBC >100,000 may have falsely elevated Potassium levels. ??For accurate Potassium quantification in these patients send serum separator tube (gold top) for subsequent determinations. ??Contact the Clinical Chemistry Laboratory if there are any questions. Chloride 103 98 - 107 mmol/L [facility] Carbon Dioxide 24 22 - 31 mmol/L [facility] Anion Gap 11 5 - 15 mmol/L [facility] Calcium 8.1(L) 8.5 - 10.5 mg/dL [facility] Est Glomerular Filtration Rate 42(L) >=60 mL/min/1. 73 m?? [facility] Comment: This patient's estimated GFR was [...] In Lab Carlos Terry MD CHEMISTRY ORDERABLES [facility] [place] [address] * Phosphorus (08/16/2022 3:36 AM EDT) Phosphorus 2.7 2.5 - 4.5 mg/dL [facility] Blood 08/16/2022 3:36 AM EDT 08/16/2022 3:43 AM EDT Narrative Resulting Agency Comment Spec In Lab Richard Pascal MD CHEMISTRY ORDERABLES Performing Organization Address [facility] Co de Phone Number [facility] [place] [address] * Magnesium (08/16/2022 3:36 AM EDT) [facility] Magnesium 0.99 0.69 - 1.07 mmol/L [facility] Blood 08/16/2022 3:36 AM EDT 08/16/2022 3:43 AM EDT Narrative Resulting Agency Comment Spec In Lab Richard Pascal MD CHEMISTRY ORDERABLES Performing Organization Address [facility] Co de Phone Number [facility] [place] [address] * (ABNORMAL) POCT Glucose (08/16/2022 3:34 AM EDT) [facility] Glucose, POC 207(H) 65 - 199 mg/dL [facility] Comment: Supplemental ranges: <140 mg/dL before meals <180 mg/dL all other times of the day Blood 08/16/2022 3:34 AM EDT 08/16/2022 3:34 AM EDT Carlos Terry MD POINT OF CARE TEST O RDERABLES Performing Organization Address [facility] Co de Phone Number [facility] [place] [address] * EKG 12 Lead (08/16/2022 3:24 AM EDT) [facility] Ventricular rate 79 BPM MUSE SYSTEM Atrial Rate 79 BPM MUSE SYSTEM P-R Interval 130 ms MUSE SYSTEM QRS Duration 68 ms MUSE SYSTEM Q-T Interval 396 ms MUSE SYSTEM QTC Calculated (Bezet) 454 ms MUSE SYSTEM Calculated P [place] -26 degrees MUSE SYSTEM Calculated R [place] 70 degrees MUSE SYSTEM Calculated T [place] -123 degrees MUSE SYSTEM INTERPRETATION Normal sinus rhythm Low voltage QRS T wave abnormality, consider inferior ischemia T wave abnormality, consider anterolateral ischemia Abnormal ECG When compared with ECG of 15-AUG-2022 07:36, No significant change was found Confirmed by MD Ty, Jagdeep Gamble ([id number]) on 08/16/2022 11:52:27 AM MUSE SYSTEM 08/16/2022 3:24 AM EDT 08/16/2022 11:52 AM EDT Carlos Terry MD ECG ORDERABLES MUSE SYSTEM * (ABNORMAL) Coox2 (08/16/2022 2:13 AM EDT) pO2, Coox 27 mmHg [facility] Hgb Blood Gas 10.6(L) 11.7 - 15.5 g/dL [facility] Oxyhemoglobin, Coox 51.3 % [facility] Carboxyhemoglo bin, Coox 0.3 % [facility] Comment: Nonsmokers: 0.5-1.5% COHB Smokers: Variable, but usually less than 10% Toxic: 20-30% COHB Lethal: Greater than 60% COHB Methemoglobin, Coox 1.0 <=1.5 % [facility] Source Coox Mixed Venous [facility] Blood 08/16/2022 2:13 AM EDT 08/16/2022 2:13 AM EDT Carlos Terry MD POINT OF CARE TEST O RDERABLES [facility] [place] [address] * POCT Glucose (08/16/2022 1:38 AM EDT) Glucose, POC 165 65 - 199 mg/dL [facility] Comment: Supplemental ranges: <140 mg/dL before meals <180 mg/dL all other times of the day Blood 08/16/2022 1:38 AM EDT 08/16/2022 1:38 AM EDT Carlos Terry MD POINT OF CARE TEST O RDERABLES [facility] [place] [address] * POCT Glucose (08/16/2022 1:01 AM EDT) Glucose, POC 136 65 - 199 mg/dL [facility] Comment: Supplemental ranges: <140 mg/dL before meals <180 mg/dL all other times of the day Blood 08/16/2022 1:01 AM EDT 08/16/2022 1:01 AM EDT Carlos Terry MD POINT OF CARE TEST O GABRIELLA Performing Organization Address City/[facility] Co de Phone Number [facility] [place] [address] * (ABNORMAL) Coox2 (08/16/2022 12:04 AM EDT) pO2, Coox 24 mmHg [facility] Hgb Blood Gas 10.5(L) 11.7 - 15.5 g/dL [facility] Oxyhemoglobin, Coox 46.3 % [facility] Carboxyhemoglo bin, Coox 0.3 % [facility] Comment: Nonsmokers: 0.5-1.5% COHB Smokers: Variable, but usually less than 10% Toxic: 20-30% COHB Lethal: Greater than 60% COHB Methemoglobin, Coox 1.2 <=1.5 % [facility] Source Coox Mixed Venous [facility] Blood 08/16/2022 12:0 4 AM EDT 08/16/2022 12:04 AM EDT Carlos Terry MD POINT OF CARE TEST O GABRIELLA Performing Organization Address [facility] Co de Phone Number [facility] [place] [address] * (ABNORMAL) BLOOD GAS 2 ARTERIAL (08/15/2022 11:59 PM EDT) pH, Arterial 7.46(H) 7.35 - 7.45 [facility] PCO2, Arterial 36 35 - 45 mmHg [facility] PO2, Arterial 75(L) 85 - 104 mmHg [facility] Bicarbonate, Arterial 24.7 20.0 - 26.0 mmol/L [facility] Base Excess, Arterial 0.8 -3.0 - 3.0 mmol/L [facility] Hgb Blood Gas 10.5(L) 11.7 - 15.5 g/dL [facility] Oxyhemoglobin, Arterial 94.3 94.0 - 97.0 % [facility] Carboxyhemoglob in, Arterial 0.2 % [facility] Comment: Nonsmokers: 0.5-1.5% COHB Smokers: Variable, but usually less than 10% Toxic: 20-30% COHB Lethal: Greater than 60% COHB Methemoglobin, Arterial 0.9 <=1.5 % [facility] Na Whole Blood 135 135 - 145 mmol/L [facility] K Whole Blood 4.5 3.5 - 5.0 mmol/L [facility] Comment: Please note: Patients with WBC >100,000 may have falsely elevated Potassium levels. Contact the Clinical Chemistry Laboratory if there are any questions. ICa Whole Blood 1.15 1.15 - 1.33 mmol/L [facility] Comment: Note: ??Total bilirubin higher than 20 mg/dL may lead to falsely low ionized calcium. CL Whole Blood 101 98 - 107 mmol/L [facility] Gluc Whole Bld 165 65 - 199 mg/dL [facility] Comment:Diabetes: >=200 mg/d L plus symptoms. Lactate WB 2.2 0.5 - 2.2 mmol/L [facility] FIO2 Art 25 % [facility] PF Ratio Art 300 [facility] Blood 08/15/2022 11:5 9 PM EDT 08/15/2022 11:59 PM EDT Carlos Terry MD POINT OF CARE TEST O RDERABLES [facility] [place] [address] * (ABNORMAL) POCT Glucose (08/15/2022 9:46 PM EDT) Glucose, POC 211(H) 65 - 199 mg/dL [facility] Comment: Supplemental ranges: <140 mg/dL before meals <180 mg/dL all other times of the day Blood 08/15/2022 9:46 PM EDT 08/15/2022 9:46 PM EDT Carlos Terry MD POINT OF CARE TEST O RDERABLES Performing Organization Address City/[facility] Co de Phone Number [facility] [place] [address] * Potassium (08/15/2022 9:40 PM EDT) [facility] Potassium 3.5 3.5 - 5.0 mmol/L [facility] Comment: result rechecked-CORTNEY Please note: ??Patients [...] CHEMISTRY ORDERABLES Performing Organization Address [facility] Co de Phone Number [facility] [place] [address] * Vancomycin Level, Random (08/15/2022 9:40 PM EDT) [facility] Vancomycin, Random 19.5 mg/L [facility] Comment: This level is for determination of the patient's vancomycin qrqr-aebrh-tgi-curve (AUC) value. Contact the inpatient pharmacy for interpretation. Blood 08/15/2022 9:40 PM EDT 08/15/2022 9:56 PM EDT Carlos Terry MD CHEMISTRY ORDERABLES Performing Organization Address [facility] Co de Phone Number [facility] [place] [address] * (ABNORMAL) Coox2 (08/15/2022 8:10 PM EDT) pO2, Coox 24 mmHg [facility] Hgb Blood Gas 10.6(L) 11.7 - 15.5 g/dL [facility] Oxyhemoglobin, Coox 49.8 % [facility] Carboxyhemoglo bin, Coox 0.7 % [facility] Comment: Nonsmokers: 0.5-1.5% COHB Smokers: Variable, but usually less than 10% Toxic: 20-30% COHB Lethal: Greater than 60% COHB Methemoglobin, Coox 0.8 <=1.5 % [facility] Source Coox Mixed Venous [facility] Blood 08/15/2022 8:10 PM EDT 08/15/2022 8:10 PM EDT Carlos Terry MD POINT OF CARE TEST O RDERABLES [facility] [place] [address] * (ABNORMAL) BLOOD GAS 2 ARTERIAL (08/15/2022 8:08 PM EDT) pH, Arterial 7.44 7.35 - 7.45 [facility] PCO2, Arterial 30(L) 35 - 45 mmHg [facility] PO2, Arterial 78(L) 85 - 104 mmHg [facility] Bicarbonate, Arterial 19.7(L) 20.0 - 26.0 mmol/L [facility] Base Excess, Arterial -4.4(L) -3.0 - 3.0 mmol/L [facility] Hgb Blood Gas 9.8(L) 11.7 - 15.5 g/dL [facility] Oxyhemoglobin, Arterial 94.4 94.0 - 97.0 % [facility] Carboxyhemoglob in, Arterial 0.6 % [facility] Comment: Nonsmokers: 0.5-1.5% COHB Smokers: Variable, but usually less than 10% Toxic: 20-30% COHB Lethal: Greater than 60% COHB Methemoglobin, Arterial 0.8 <=1.5 % [facility] Na Whole Blood 135 135 - 145 mmol/L [facility] K Whole Blood 3.1(L) 3.5 - 5.0 mmol/L [facility] Comment: Please note: Patients with WBC >100,000 may have falsely elevated Potassium levels. Contact the Clinical Chemistry Laboratory if there are any questions. ICa Whole Blood 1.08(L) 1.15 - 1.33 mmol/L [facility] Comment: Note: ??Total bilirubin higher than 20 mg/dL may lead to falsely low ionized calcium. CL Whole Blood 107 98 - 107 mmol/L [facility] Gluc Whole Bld 178 65 - 199 mg/dL [facility] Comment:Diabetes: >=200 mg/d L plus symptoms. Lactate WB 1.6 0.5 - 2.2 mmol/L [facility] FIO2 Art 25 % [facility] PF Ratio Art 312 [facility] Blood 08/15/2022 8:08 PM EDT 08/15/2022 8:08 PM EDT Carlos Terry MD POINT OF CARE TEST O RDERABLES Performing Organization Address [facility] Co de Phone Number [facility] [place] [address] * POCT Glucose (08/15/2022 6:03 PM EDT) Glucose, POC 186 65 - 199 mg/dL [facility] Comment: Supplemental ranges: <140 mg/dL before meals <180 mg/dL all other times of the day Blood 08/15/2022 6:03 PM EDT 08/15/2022 6:03 PM EDT Carlos Terry MD POINT OF CARE TEST O RDERABLES Performing Organization Address City/[facility] Co de Phone Number [facility] [place] [address] * (ABNORMAL) POCT Glucose (08/15/2022 4:51 PM EDT) Glucose, POC 210(H) 65 - 199 mg/dL [facility] Comment: Supplemental ranges: <140 mg/dL before meals <180 mg/dL all other times of the day Blood 08/15/2022 4:51 PM EDT 08/15/2022 4:51 PM EDT Carlos Terry MD POINT OF CARE TEST O RDERABLES Performing Organization Address City/[facility] Co de Phone Number [facility] [place] [address] * Heparin (unfractionated) Level (08/15/2022 4:50 PM EDT) UF Heparin 0.37 IU/mL [facility] Comment: Heparin (anti-Xa) levels should [...] ORDERABLE S Performing Organization Address [facility] Co de Phone Number [facility] [place] [address] * (ABNORMAL) Coox2 (08/15/2022 4:24 PM EDT) pO2, Coox 29 mmHg [facility] Hgb Blood Gas 11.1(L) 11.7 - 15.5 g/dL [facility] Oxyhemoglobin, Coox 57.4 % [facility] Carboxyhemoglo bin, Coox 0.5 % [facility] Comment: Nonsmokers: 0.5-1.5% COHB Smokers: Variable, but usually less than 10% Toxic: 20-30% COHB Lethal: Greater than 60% COHB Methemoglobin, Coox 0.8 <=1.5 % [facility] Source Coox Mixed Venous [facility] Blood 08/15/2022 4:24 PM EDT 08/15/2022 4:24 PM EDT Carlos Terry MD POINT OF CARE TEST O RDERABLES Performing Organization Address City/[facility]/ZIP Co de Phone Number [facility] [place] [address] * Vancomycin Level, Random (08/15/2022 4:20 PM EDT) Vancomycin, Random 23.8 mg/L [facility] Comment: This level is for determination of the patient's vancomycin jwyb-vjoif-wuy-curve (AUC) value. Contact the inpatient pharmacy for interpretation. Blood Venous Draw / Unknown 08/15/2022 4:20 PM EDT 08/15/2022 4:26 PM EDT Tyler Cobb MD CHEMISTRY ORDERABLES Performing Organization Address [facility] Co de Phone Number [facility] [place] [address] * (ABNORMAL) Basic Metabolic Panel (non-fasting) (08/15/2022 4:20 PM EDT) Glucose 227(H) 65 - 199 mg/dL [facility] Comment:Diabetes: >=200 mg/d L plus symptoms Blood Urea Nitrogen 39(H) 8 - 18 mg/dL [facility] Creatinine 1.50(H) 0.70 - 1.20 mg/dL [facility] Sodium 138 135 - 145 mmol/L [facility] Potassium 5.0 3.5 - 5.0 mmol/L [facility] Comment: Please note: ??Patients with WBC >100,000 may have falsely elevated Potassium levels. ??For accurate Potassium quantification in these patients send serum separator tube (gold top) for subsequent determinations. ??Contact the Clinical Chemistry Laboratory if there are any questions. Chloride 103 98 - 107 mmol/L [facility] Carbon Dioxide Not Perf 22 - 31 [facility] Comment:Add-on request. Samp le too old to perform test. Anion Gap Unable to Calculate 5 - 15 mmol/L [facility] Calcium 8.4(L) 8.5 - 10.5 mg/dL [facility] Est Glomerular Filtration Rate 39(L) >=60 mL/min/1 .73 m?? [facility] Comment: This patient's estimated GFR was [...] Cobb MD CHEMISTRY ORDERABLES Performing Organization Address City/[facility]/ZIP Co de Phone Number [facility] [place] [address] * Potassium (08/15/2022 4:20 PM EDT) Potassium 5.0 3.5 - 5.0 mmol/L [facility] Comment: result rechecked-KT Please note: ??Patients with WBC >100,000 may have falsely elevated Potassium levels. ??For accurate Potassium quantification in these patients send serum separator tube (gold top) for subsequent determinations. ??Contact the Clinical Chemistry Laboratory if there are any questions. Blood 08/15/2022 4:20 PM EDT 08/15/2022 4:26 PM EDT Narrative Resulting Agency Comment Spec In Lab Richard Pascal MD CHEMISTRY ORDERABLES [facility] [place] [address] * (ABNORMAL) Heparin (unfractionated) Level (08/15/2022 4:20 PM EDT) UF Heparin 1.17(Crit ical) IU/mL [facility] Comment: Critical Result called by ?? PRESKL CRITICAL Results read back by: ? Lisa Nelsonfin at 2022-08-15 16:39:12 Heparin (anti-Xa) levels should [...] Lab Carlos Terry MD HEMATOLOGY ORDERABLE S [facility] [place] [address] * (ABNORMAL) BLOOD GAS 2 ARTERIAL (08/15/2022 4:16 PM EDT) pH, Arterial 7.38 7.35 - 7.45 [facility] PCO2, Arterial 36 35 - 45 mmHg [facility] PO2, Arterial 78(L) 85 - 104 mmHg [facility] Bicarbonate, Arterial 20.8 20.0 - 26.0 mmol/L [facility] Base Excess, Arterial -4.2(L) -3.0 - 3.0 mmol/L [facility] Hgb Blood Gas 11.0(L) 11.7 - 15.5 g/dL [facility] Oxyhemoglobin, Arterial 94.2 94.0 - 97.0 % [facility] Carboxyhemoglob in, Arterial 0.5 % [facility] Comment: Nonsmokers: 0.5-1.5% COHB Smokers: Variable, but usually less than 10% Toxic: 20-30% COHB Lethal: Greater than 60% COHB Methemoglobin, Arterial 0.8 <=1.5 % [facility] Na Whole Blood 135 135 - 145 mmol/L [facility] K Whole Blood 4.5 3.5 - 5.0 mmol/L [facility] Comment: Please note: Patients with WBC >100,000 may have falsely elevated Potassium levels. Contact the Clinical Chemistry Laboratory if there are any questions. ICa Whole Blood 1.14(L) 1.15 - 1.33 mmol/L [facility] Comment: Note: ??Total bilirubin higher than 20 mg/dL may lead to falsely low ionized calcium. CL Whole Blood 105 98 - 107 mmol/L [facility] Gluc Whole Bld 210(H) 65 - 199 mg/dL [facility] Comment:Diabetes: >=200 mg/d L plus symptoms. Lactate WB 1.8 0.5 - 2.2 mmol/L [facility] FIO2 Art 30 % [facility] PF Ratio Art 260 [facility] Blood 08/15/2022 4:16 PM EDT 08/15/2022 4:16 PM EDT Carlos Terry MD POINT OF CARE TEST O RDERAREYMUNDO Performing Organization Address City/[facility]/ZIP Co de Phone Number [facility] [place] [address] * POCT Glucose (08/15/2022 2:01 PM EDT) Glucose, POC 94 65 - 199 mg/dL [facility] Comment: Supplemental ranges: <140 mg/dL before meals <180 mg/dL all other times of the day Blood 08/15/2022 2:01 PM EDT 08/15/2022 2:01 PM EDT Carlos Terry MD POINT OF CARE TEST O RDERAREYMUNDO [facility] [place] [address] * POCT Glucose (08/15/2022 1:16 PM EDT) Glucose, POC 89 65 - 199 mg/dL [facility] Comment: Supplemental ranges: <140 mg/dL before meals <180 mg/dL all other times of the day Blood 08/15/2022 1:16 PM EDT 08/15/2022 1:16 PM EDT Carlos Terry MD POINT OF CARE TEST O RDERABLES Performing Organization Address [facility] Co de Phone Number [facility] [place] [address] * POCT Glucose (08/15/2022 1:00 PM EDT) Glucose, POC 69 65 - 199 mg/dL [facility] Comment: Supplemental ranges: <140 mg/dL before meals <180 mg/dL all other times of the day Blood 08/15/2022 1:00 PM EDT 08/15/2022 1:00 PM EDT Carlos Terry MD POINT OF CARE TEST O RDERABLES Performing Organization Address [facility] Co de Phone Number [facility] [place] [address] * Urine culture Indwelling Catheter Urine; Other; sepsis, bacteria on UA (08/15/2022 12:25 PM EDT) [facility] Urine Culture 1,000-9,000 cfu/ml Insignificant growth [facility] Indwelling Catheter Urine 08/15/2022 12:25 PM EDT 08/15/2022 12:48 PM EDT Comment:Patient has fever an d at least one of the following clinical symptoms of urinary tract infection (UTI) or additional considerations->Other Narrative Resulting Agency Comment Spec In Lab Carlos Terry MD MICROBIOLOGY - GENER AL ORDERABLES Performing Organization Address [facility] Co de Phone Number [facility] [place] [address] * (ABNORMAL) BLOOD GAS 2 ARTERIAL (08/15/2022 12:18 PM EDT) pH, Arterial 7.37 7.35 - 7.45 [facility] PCO2, Arterial 39 35 - 45 mmHg [facility] PO2, Arterial 92 85 - 104 mmHg [facility] Bicarbonate, Arterial 22.2 20.0 - 26.0 mmol/L [facility] Base Excess, Arterial -3.0 -3.0 - 3.0 mmol/L [facility] Hgb Blood Gas 10.8(L) 11.7 - 15.5 g/dL [facility] Oxyhemoglobin, Arterial 95.6 94.0 - 97.0 % [facility] Carboxyhemoglob in, Arterial 0.5 % [facility] Comment: Nonsmokers: 0.5-1.5% COHB Smokers: Variable, but usually less than 10% Toxic: 20-30% COHB Lethal: Greater than 60% COHB Methemoglobin, Arterial 0.9 <=1.5 % [facility] Na Whole Blood 137 135 - 145 mmol/L [facility] K Whole Blood 4.0 3.5 - 5.0 mmol/L [facility] Comment: Please note: Patients with WBC >100,000 may have falsely elevated Potassium levels. Contact the Clinical Chemistry Laboratory if there are any questions. ICa Whole Blood 1.15 1.15 - 1.33 mmol/L [facility] Comment: Note: ??Total bilirubin higher than 20 mg/dL may lead to falsely low ionized calcium. CL Whole Blood 107 98 - 107 mmol/L [facility] Gluc Whole Bld 57(L) 65 - 199 mg/dL [facility] Comment:Diabetes: >=200 mg/d L plus symptoms. Lactate WB 1.5 0.5 - 2.2 mmol/L [facility] FIO2 Art 30 % [facility] PF Ratio Art 307 [facility] Blood 08/15/2022 12:1 8 PM EDT 08/15/2022 12:18 PM EDT Carlos Terry MD POINT OF CARE TEST O RDERABLES [facility] [place] [address] * (ABNORMAL) Coox2 (08/15/2022 12:13 PM EDT) pO2, Coox 30 mmHg [facility] Hgb Blood Gas 11.1(L) 11.7 - 15.5 g/dL [facility] Oxyhemoglobin, Coox 59.4 % [facility] Carboxyhemoglo bin, Coox 0.4 % [facility] Comment: Nonsmokers: 0.5-1.5% COHB Smokers: Variable, but usually less than 10% Toxic: 20-30% COHB Lethal: Greater than 60% COHB Methemoglobin, Coox 0.9 <=1.5 % [facility] Source Coox Mixed Venous [facility] Blood 08/15/2022 12:1 3 PM EDT 08/15/2022 12:13 PM EDT Carlos Terry MD POINT OF CARE TEST O RDERABLES Performing Organization Address [facility] Co de Phone Number [facility] [place] [address] * POCT Glucose (08/15/2022 11:59 AM EDT) Pathologist [facility] Glucose, POC 83 65 - 199 mg/dL [facility] Comment: Supplemental ranges: <140 mg/dL before meals <180 mg/dL all other times of the day Blood 08/15/2022 11:5 9 AM EDT 08/15/2022 11:59 AM EDT Carlos Terry MD POINT OF CARE TEST O RDERAREYMUNDO Performing Organization Address City/[facility] Co de Phone Number [facility] [place] [address] * COVID-19 PCR (08/15/2022 11:50 AM EDT) SARS-CoV-2 RNA (Rapid) Not Detected Not Detected [facility] Comment: This result should be interpreted [...] using the Simplexa COVID-19 Direct Assay by [employer] as authorized by the FDA issued Emergency [...] Department of Pathology and Laboratory Medicine at [facility], certified under the Clinical Laboratory Improvement Amendments [...] fact sheets at the following FDA website: https://www.fda.gov/medical-devices/fnacqnzrojf-mzwumhd-9883-avbie-96-sheaaiexs- use-a qhxbnznpgqyjn-wdgsgzy-suhiuvf/bmtsq-etgfkwppode-ixrx SARS-CoV-2 Source PLAN COORDINATOR Swab [facility] Nasopharyngeal Swab 08/16/19 23 11:50 AM EDT 08/15/2022 12:36 PM EDT Comment:Specimen Source->Wili opharyngeal Swab Narrative Resulting Agency Comment Spec In Lab Carlos Terry MD MICROBIOLOGY - GENER AL ORDERABLES Performing Organization Address [facility] Co de Phone Number [facility] [place] [address] * POCT Glucose (08/15/2022 11:22 AM EDT) Glucose, POC 84 65 - 199 mg/dL [facility] Comment: Supplemental ranges: <140 mg/dL before meals <180 mg/dL all other times of the day Blood 08/15/2022 11:2 2 AM EDT 08/15/2022 11:22 AM EDT Carlos Terry MD POINT OF CARE TEST O RDERABLES Performing Organization Address [facility] de Phone Number [facility] [place] [address] * POCT Glucose (08/15/2022 10:13 AM EDT) Glucose, POC 123 65 - 199 mg/dL [facility] Comment: Supplemental ranges: <140 mg/dL before meals <180 mg/dL all other times of the day Blood 08/15/2022 10:1 3 AM EDT 08/15/2022 10:13 AM EDT Carlos Terry MD POINT OF CARE TEST O RDERABLES Performing Organization Address [facility] Co de Phone Number [facility] [place] [address] * ECHO COMPLETE (08/15/2022 10:04 AM EDT) Anatomical Region Laterality Modality Cardiac Other 08/15/2022 9:38 AM EDT Narrative 08/15/2022 10:34 AM EDT ? Echocardiogram Report Name: ISHAN IRVING ? Study Date: 08/15/2022 09:38 AMBP: 102/54 mmHg ? Patient Location: 4A 0000 ? HR: 99 : 1960 ? Height: 152 cm ? Account: [id number] Age: 62 yrs ? Weight: 69 kg Gender: Female ?BSA: 1.7 m2 Ordering Physician: VENKAT^M Referring Physician: NIURKA AYALA Performed By: Raissa Bhakta RDCS Reason For Study: Septic shock Exam Location: [facility]. Interpretation Summary -Left ventricle is mildly [...] today's date, LVEF is slightly improved. Procedure Complete-60074. Satisfactory quality. There is normal sinus rhythm. [...] dec time: 0.10 sec Lat Peak E' Gruvinder: 5.4 cm/sec E/ e' (lat): 9.3 Med [...] Date: 309:38 AMBP: 102/54 mmHg Patient Location: [facility] HR: 99 : 1960 Height: 152 cm Account: [id number] Age: 62 yrs Weight: 69 kg Gender: Female BSA: 1.7 m2 Ordering Physician: FANY Referring Physician: NIURKA AYALA Performed By: Raissa Bhakta RDCS Reason For Study: Septic shock Exam Location: [facility]. Interpretation Summary -Left ventricle is mildly [...] today's date, LVEF is slightly improved. Procedure Complete-40132. Satisfactory quality. There is normal sinus rhythm. [...] Protein, Total 5.6(L) 6.1 - 8.0 g/dL [facility] Albumin 2.4(L) 3.2 - 5.2 g/dL [facility] Aspartate Aminotransferase 21 0 - 30 unit/L [facility] Alanine Aminotransferase 12 0 - 30 unit/L [facility] Alkaline Phosphatase 102 35 - 105 unit/L [facility] Bilirubin, Total <0.2(L) 0.2 - 1.3 mg/dL [facility] Bilirubin, Direct 0.1 0.0 - 0.3 mg/dL [facility] Blood Venous Draw / Unknown 08/15/2022 9:50 AM EDT 08/15/2022 10:04 AM EDT Narrative Resulting Agency Comment Spec In Lab Jigar Streeter MD CHEMISTRY ORDERABLES Performing Organization Address [facility] Co de Phone Number [facility] [place] [address] * (ABNORMAL) Potassium (08/15/2022 9:50 AM EDT) Potassium 3.2(L) 3.5 - 5.0 mmol/L [facility] Comment: Please note: ??Patients with WBC [...] CHEMISTRY ORDERABLES Performing Organization Address [facility] Co de Phone Number [facility] [place] [address] * (ABNORMAL) Troponin (08/15/2022 9:50 AM EDT) Troponin-T, High Sensitivity 575(H) <=14 ng/L [facility] Comment: This patient's troponin T concentration [...] troponin value can be found in the [facility] Test Catalog Troponin - [facility] Test Catalog Reference: Fourth [place] Definition of Myocardial Infarction. Journal of the [place] [employer] 2018;72:5720-8346 Blood 08/15/2022 9:50 AM EDT 08/15/2022 9:59 AM EDT Narrative Resulting Agency Comment Spec In Lab Carlos Terry MD CHEMISTRY ORDERABLES Performing Organization Address [facility]/ZIP Co de Phone Number [facility] [place] [address] * Heparin (unfractionated) Level (08/15/2022 8:50 AM EDT) UF Heparin 0.51 IU/mL [facility] Comment: Heparin [...] MD HEMATOLOGY ORDERABLE S Performing Organization Address City/[facility]/ZIP Co de Phone Number [facility] [place] [address] * (ABNORMAL) BLOOD GAS 2 ARTERIAL (08/15/2022 8:49 AM EDT) pH, Arterial 7.36 7.35 - 7.45 [facility] PCO2, Arterial 37 35 - 45 mmHg [facility] PO2, Arterial 78(L) 85 - 104 mmHg [facility] Bicarbonate, Arterial 20.3 20.0 - 26.0 mmol/L [facility] Base Excess, Arterial -5.1(L) -3.0 - 3.0 mmol/L [facility] Hgb Blood Gas 11.3(L) 11.7 - 15.5 g/dL [facility] Oxyhemoglobin, Arterial 93.8(L) 94.0 - 97.0 % [facility] Carboxyhemoglob in, Arterial 0.5 % [facility] Comment: Nonsmokers: 0.5-1.5% COHB Smokers: Variable, but usually less than 10% Toxic: 20-30% COHB Lethal: Greater than 60% COHB Methemoglobin, Arterial 0.8 <=1.5 % [facility] Na Whole Blood 137 135 - 145 mmol/L [facility] K Whole Blood 4.0 3.5 - 5.0 mmol/L [facility] Comment: Please note: Patients with WBC >100,000 may have falsely elevated Potassium levels. Contact the Clinical Chemistry Laboratory if there are any questions. ICa Whole Blood 1.21 1.15 - 1.33 mmol/L [facility] Comment: Note: ??Total bilirubin higher than 20 mg/dL may lead to falsely low ionized calcium. CL Whole Blood 106 98 - 107 mmol/L [facility] Gluc Whole Bld 106 65 - 199 mg/dL [facility] Comment:Diabetes: >=200 mg/d L plus symptoms. Lactate WB 2.9(H) 0.5 - 2.2 mmol/L [facility] FIO2 Art 30 % [facility] PF Ratio Art 260 [facility] Blood 08/15/2022 8:49 AM EDT 08/15/2022 8:49 AM EDT Carlos Terry MD POINT OF CARE TEST O RDERABLES [facility] [place] [address] * XR Abdomen 1 view (Generic) (08/15/2022 [...] who have questions please contact the health patient care technician instructor that requested your imaging first. ? Narrative 08/15/2022 9:05 AM EDT EXAMINATION: XR ABDOMEN 1 VIEW (GENERIC) CLINICAL HISTORY: 62 yo F w/ shock, confirm NG tube placement TECHNIQUE: Single radiograph of the lower chest and upper abdomen for purposes of enteric tube verification and otherwise nondiagnostic. The lower abdomen is excluded from [id number]. COMPARISON: Abdominal radiograph 08/15/2022 FINDINGS: * ??An [...] otherwise nondiagnostic. The lower abdomen isexcluded from [id number]. COMPARISON: Abdominal radiograph 08/15/2022 FINDINGS: * An [...] patients who have questions please contactthe health patient care technician instructor that requested your imaging first. Carlos Terry MD IMG DX ORDERABLES * POCT Glucose (08/15/2022 7:51 AM EDT) Glucose, POC 189 65 - 199 mg/dL [facility] Comment: Supplemental ranges: <140 mg/dL before meals <180 mg/dL all other times of the day Blood 08/15/2022 7:51 AM EDT 08/15/2022 7:51 AM EDT Carlos Terry MD POINT OF CARE TEST O RDERABLES Performing Organization Address [facility] Co de Phone Number [facility] [place] [address] * Lower Respiratory Culture Sputum Induced (08/15/2022 7:40 AM EDT) Lower Respiratory Culture Rare normal upper respiratory wiley [facility] Gram Stain Many Neutrophils Few squamous epithelial cells Rare mixed bacterial morphotypes suggestive of normal upper respiratory wiley [facility] Sputum Induced 08/15/2022 7: 40 AM EDT 08/15/2022 10:13 AM EDT Narrative Resulting Agency Comment Spec In Lab Carlos Terry MD MICROBIOLOGY - GENER AL ORDERABLES Performing Organization Address [facility] Co de Phone Number [facility] [place] [address] * EKG 12 Lead (08/15/2022 7:36 AM EDT) Ventricular rate 106 BPM MUSE SYSTEM Atrial Rate 106 BPM MUSE SYSTEM P-R Interval 128 ms MUSE SYSTEM QRS Duration 70 ms MUSE SYSTEM Q-T Interval 362 ms MUSE SYSTEM QTC Calculated (Bezet) 480 ms MUSE SYSTEM Calculated P [place] 59 degrees MUSE SYSTEM Calculated R [place] 94 degrees MUSE SYSTEM Calculated T [place] 160 degrees MUSE SYSTEM INTERPRETATION Sinus tachycardia Rightward axis Low voltage QRS Septal infarct (cited on or before 14-AUG-2022) T wave abnormality, consider anterolateral ischemia Abnormal ECG When compared with ECG of 14-AUG-2022 23:19, Lateral T wave inversion is more prounced QRS axis Shifted right Confirmed by MD Harrison, Carlos Hand ([id number]) on 08/17/2022 6:16:58 PM MUSE SYSTEM 08/15/2022 7:36 AM EDT 08/17/2022 6:16 PM EDT Carlos Terry MD ECG ORDERABLES Performing Organization Address [facility] Co de Phone Number MUSE SYSTEM * [...] who have questions please contact the health patient care technician instructor that requested your imaging first. ? Narrative [...] patients who have questions please contactthe health patient care technician instructor that requested your imaging first. Carlos Terry MD IMG DX ORDERABLES * (ABNORMAL) POCT Glucose (08/15/2022 6:38 AM EDT) Glucose, POC 219(H) 65 - 199 mg/dL [facility] Comment: Supplemental ranges: <140 mg/dL before meals <180 mg/dL all other times of the day Blood 08/15/2022 6:38 AM EDT 08/15/2022 6:38 AM EDT Carlos Terry MD POINT OF CARE TEST O RDERABLES [facility] [place] [address] * (ABNORMAL) Lactate, whole blood, send to lab ([facility]) (08/15/2022 5:55 AM EDT) Lactate WB 3.1(H) 0.5 - 2.2 mmol/L [facility] Blood 08/15/2022 5:55 AM EDT 08/15/2022 6:02 AM EDT Narrative Resulting Agency Comment Spec In Lab Carlos Terry MD CHEMISTRY ORDERABLES [facility] [place] [address] * (ABNORMAL) Coox2 (08/15/2022 5:33 AM EDT) pO2, Coox 34 mmHg [facility] Hgb Blood Gas 11.1(L) 11.7 - 15.5 g/dL [facility] Oxyhemoglobin, Coox 63.7 % [facility] Carboxyhemoglo bin, Coox 0.6 % [facility] Comment: Nonsmokers: 0.5-1.5% COHB Smokers: Variable, but usually less than 10% Toxic: 20-30% COHB Lethal: Greater than 60% COHB Methemoglobin, Coox 1.0 <=1.5 % [facility] Source Coox Mixed Venous [facility] Blood 08/15/2022 5:33 AM EDT 08/15/2022 5:33 AM EDT Carlos Terry MD POINT OF CARE TEST O RDERABLES [facility] [place] [address] * (ABNORMAL) BLOOD GAS 2 ARTERIAL (08/15/2022 5:31 AM EDT) pH, Arterial 7.30(L) 7.35 - 7.45 [facility] PCO2, Arterial 41 35 - 45 mmHg [facility] PO2, Arterial 117(H) 85 - 104 mmHg [facility] Bicarbonate, Arterial 19.6(L) 20.0 - 26.0 mmol/L [facility] Base Excess, Arterial -6.9(L) -3.0 - 3.0 mmol/L [facility] Hgb Blood Gas 11.2(L) 11.7 - 15.5 g/dL [facility] Oxyhemoglobin, Arterial 96.8 94.0 - 97.0 % [facility] Carboxyhemoglob in, Arterial 0.2 % [facility] Comment: Nonsmokers: 0.5-1.5% COHB Smokers: Variable, but usually less than 10% Toxic: 20-30% COHB Lethal: Greater than 60% COHB Methemoglobin, Arterial 0.8 <=1.5 % [facility] Na Whole Blood 140 135 - 145 mmol/L [facility] K Whole Blood 2.7(Critic al) 3.5 - 5.0 mmol/L [facility] Comment: Noted by framing mill operator. Please note: Patients with WBC >100,000 may have falsely elevated Potassium levels. Contact the Clinical Chemistry Laboratory if there are any questions. ICa Whole Blood 1.16 1.15 - 1.33 mmol/L [facility] Comment: Note: ??Total bilirubin higher than 20 mg/dL may lead to falsely low ionized calcium. CL Whole Blood 109(H) 98 - 107 mmol/L [facility] Gluc Whole Bld 277(H) 65 - 199 mg/dL [facility] Comment:Diabetes: >=200 mg/d L plus symptoms. Lactate WB 3.6(H) 0.5 - 2.2 mmol/L [facility] FIO2 Art 40 % [facility] PF Ratio Art 292 [facility] Blood 08/15/2022 5:31 AM EDT 08/15/2022 5:31 AM EDT Carlos Terry MD POINT OF CARE TEST O GABRIELLA Performing Organization Address [facility] Co de Phone Number [facility] [place] [address] * (ABNORMAL) POCT Glucose (08/15/2022 5:00 AM EDT) Glucose, POC 280(H) 65 - 199 mg/dL [facility] Comment: Supplemental ranges: <140 mg/dL before meals <180 mg/dL all other times of the day Blood 08/15/2022 5:00 AM EDT 08/15/2022 5:00 AM EDT Carlos Terry MD POINT OF CARE TEST O GABRIELLA Performing Organization Address City/[facility] Co de Phone Number [facility] [place] [address] * (ABNORMAL) BLOOD GAS 2 ARTERIAL (08/15/2022 3:11 AM EDT) pH, Arterial 7.25(Criti tonya) 7.35 - 7.45 [facility] Comment:Noted by framing mill operator. PCO2, Arterial 38 35 - 45 mmHg [facility] PO2, Arterial 112(H) 85 - 104 mmHg [facility] Bicarbonate, Arterial 16.0(L) 20.0 - 26.0 mmol/L [facility] Base Excess, Arterial -11.2(L) -3.0 - 3.0 mmol/L [facility] Hgb Blood Gas 11.0(L) 11.7 - 15.5 g/dL [facility] Oxyhemoglobin, Arterial 96.4 94.0 - 97.0 % [facility] Carboxyhemoglob in, Arterial 0.1 % [facility] Comment: Nonsmokers: 0.5-1.5% COHB Smokers: Variable, but usually less than 10% Toxic: 20-30% COHB Lethal: Greater than 60% COHB Methemoglobin, Arterial 0.9 <=1.5 % [facility] Na Whole Blood 138 135 - 145 mmol/L [facility] K Whole Blood 3.4(L) 3.5 - 5.0 mmol/L [facility] Comment: Please note: Patients with WBC >100,000 may have falsely elevated Potassium levels. Contact the Clinical Chemistry Laboratory if there are any questions. ICa Whole Blood 1.16 1.15 - 1.33 mmol/L [facility] Comment: Note: ??Total bilirubin higher than 20 mg/dL may lead to falsely low ionized calcium. CL Whole Blood 106 98 - 107 mmol/L [facility] Gluc Whole Bld 324(H) 65 - 199 mg/dL [facility] Comment:Diabetes: >=200 mg/d L plus symptoms. Lactate WB 1.9 0.5 - 2.2 mmol/L [facility] FIO2 Art 40 % [facility] PF Ratio Art 280 [facility] Blood 08/15/2022 3:11 AM EDT 08/15/2022 3:11 AM EDT Carlos Terry MD POINT OF CARE TEST O RDERABLES [facility] [place] [address] * (ABNORMAL) Hepatic Function Panel (08/15/2022 3:05 AM EDT) Protein, Total 5.6(L) 6.1 - 8.0 g/dL [facility] Albumin 2.4(L) 3.2 - 5.2 g/dL [facility] Aspartate Aminotransferase 25 0 - 30 unit/L [facility] Alanine Aminotransferase 13 0 - 30 unit/L [facility] Alkaline Phosphatase 99 35 - 105 unit/L [facility] Bilirubin, Total 0.2 0.2 - 1.3 mg/dL [facility] Bilirubin, Direct 0.1 0.0 - 0.3 mg/dL [facility] Blood Venous Draw / Unknown 08/15/2022 3:05 AM EDT 08/15/2022 3:17 AM EDT Narrative Resulting Agency Comment Spec In Lab Vanessa Escalona MD CHEMISTRY ORDERABLE S [facility] [place] [address] * (ABNORMAL) Basic Metabolic Panel (non-fasting) (08/15/2022 3:05 AM EDT) Glucose 378(H) 65 - 199 mg/dL [facility] Comment:Diabetes: >=200 mg/d L plus symptoms Blood Urea Nitrogen 38(H) 8 - 18 mg/dL [facility] Creatinine 1.42(H) 0.70 - 1.20 mg/dL [facility] Sodium 140 135 - 145 mmol/L [facility] Potassium 3.7 3.5 - 5.0 mmol/L [facility] Comment: Please note: ??Patients with WBC >100,000 may have falsely elevated Potassium levels. ??For accurate Potassium quantification in these patients send serum separator tube (gold top) for subsequent determinations. ??Contact the Clinical Chemistry Laboratory if there are any questions. Chloride 104 98 - 107 mmol/L [facility] Carbon Dioxide Not Perf 22 - 31 [facility] Comment:Add-on request. Samp le too old to perform test. Anion Gap Unable to Calculate 5 - 15 mmol/L [facility] Calcium 8.3(L) 8.5 - 10.5 mg/dL [facility] Est Glomerular Filtration Rate 42(L) >=60 mL/min/1 .73 m?? [facility] Comment: This patient's [...] Cobb MD CHEMISTRY ORDERABLES Performing Organization Address [facility]/ZIP Co de Phone Number [facility] [place] [address] * Scan, Peripheral Blood (08/15/2022 3:05 AM EDT) Plat estimate Increased [facility] RBC Morphology Abnormal [facility] Macrocyte 1-5 /HPF [facility] Microcyte 6-10 /HPF [facility] Comment:Corrected from 1-5 / HPF [NA] on 08/15/22 3:54:48 EDT by Cedric Forbes Hypochromia Moderate [facility] Target Cells 1-5 /HPF [facility] [place] Cells gtr than 10 /HPF [facility] Comment:Corrected from 1-5 / HPF [NA] on 08/15/22 3:54:48 EDT by Cedric Forbes Platelet Clumps Present [facility] Blood 08/15/2022 3:05 AM EDT 08/15/2022 3:16 AM EDT Narrative Resulting Agency Comment Spec In Lab Tyler Cobb MD HEMATOLOGY ORDERABLE S Performing Organization Address [facility]/ZIP Co de Phone Number [facility] [place] [address] * (ABNORMAL) Differential, Automated (08/15/2022 3:05 AM EDT) Neutrophil % 89.8 % [facility] Neutrophil Absolute 35.76(H) 1.70 - 6.10 x10(3)/mc L [facility] Lymph % 2.3 % [facility] Lymphocytes Abs 0.9 0.9 - 3.2 x10(3)/mc L [facility] Monocyte % 4.6 % [facility] Monocyte Abs 1.8(H) 0.3 - 0.9 x10(3)/mc L [facility] Eos % 0.5 % [facility] Eosinophils Abs 0.2 0.0 - 0.4 x10(3)/mc L [facility] Basophil % 0.1 % [facility] Baso Absolute 0.0 0.0 - 0.1 x10(3)/mc L [facility] Immature Gran % 2.70 % [facility] Comment: Immature granulocytes(IG's)percentage and absolute count will include metamyelocytes, myelocytes, and promyelocytes. Blood smears from CBCs yielding IG's will be scanned manually for concordance. If this scan disagrees with the automated IG or if promyelocytes are noted, a manual differential will be performed. Immature Gran Absolute 1.08(H) 0.00 - 0.04 x10(3)/ L [facility] Blood 08/15/2022 3:05 AM EDT 08/15/2022 3:16 AM EDT Narrative Resulting Agency Comment Spec In Lab Tyler Cobb MD HEMATOLOGY ORDERABLE S [facility] [place] [address] * (ABNORMAL) Hemogram (08/15/2022 3:05 AM EDT) Pathologist [facility] White Blood Cell 39.8(Critica l) 4.0 - 9.5 x10(3)/mc L [facility] Comment: This result has been called to MIROSLAVA BERRY by Cedric Forbes on 08 15 2022 at 0341, and has been read back. Red Blood Cell 5.08 4.00 - 5.21 x10(6)/mc L [facility] Hemoglobin 10.2(L) 11.7 - 15.5 g/dL [facility] Hematocrit 34.4(L) 35.7 - 45.8 % [facility] Mean Cell Volume 67.7(L) 82.6 - 94.4 fL [facility] Mean Cell Hemoglobin 20.1(L) 27.1 - 32.0 pg [facility] Mean Cell Hemoglobin Concentration 29.7(L) 31.7 - 35.0 g/dL [facility] Platelet 350 145 - 357 x10(3)/mc L [facility] RDW Standard Deviation 68.0(H) 37.0 - 46.0 fL [facility] RDW coefficient of variation 29.2(H) 11.5 - 14.1 % [facility] Mean Platelet Volume Not Measured 7.6 - 12.9 fL [facility] NRBC% auto 0.3 % [facility] NRBC Absolute 0.130(H) 0.000 - 0.000 x10(3)/ L [facility] Blood 08/15/2022 3:05 AM EDT 08/15/2022 3:16 AM EDT Narrative Resulting Agency Comment Spec In Lab Tyler Cobb MD HEMATOLOGY ORDERABLE S [facility] [place] [address] * (ABNORMAL) Hemoglobin A1c (08/15/2022 3:05 AM EDT) Hemoglobin A1c 6.2(H) 4.3 - 5.6 % [facility] Comment: Reference Range: 4.3 - 5.6% [...] Mellitus, Diabetes Care 2013; 36: Suppl. 1, S67-95 Estimated Average Glucose 130 mg/dL [facility] Comment: eAG equivalents for HbA1c [...] into estimated average glucose values. ??Diabetes Care 2008:31(8):9807-6499. Blood 08/15/2022 3:05 AM EDT 08/15/2022 3:16 AM EDT Narrative Resulting Agency Comment Spec In Lab Carlos Terry MD CHEMISTRY ORDERABLES [facility] [place] [address] * Heparin (unfractionated) Level (08/15/2022 3:05 AM EDT) UF Heparin 0.92 IU/mL [facility] Comment: Heparin [...] MD HEMATOLOGY ORDERABLE S Performing Organization Address City/[facility]/ZIP Co de Phone Number [facility] [place] [address] * (ABNORMAL) Phosphorus (08/15/2022 3:05 AM EDT) Phosphorus 5.3(H) 2.5 - 4.5 mg/dL [facility] Blood 08/15/2022 3:05 AM EDT 08/15/2022 3:16 AM EDT Narrative Resulting Agency Comment Spec In Lab Richard Pascal MD CHEMISTRY ORDERABLES Performing Organization Address [facility] Co de Phone Number [facility] [place] [address] * Magnesium (08/15/2022 3:05 AM EDT) Magnesium 0.90 0.69 - 1.07 mmol/L [facility] Blood 08/15/2022 3:05 AM EDT 08/15/2022 3:16 AM EDT Narrative Resulting Agency Comment Spec In Lab Richard Pascal MD CHEMISTRY ORDERABLES Performing Organization Address [facility] Co de Phone Number [facility] [place] [address] * (ABNORMAL) Urinalysis Microscopic Exam (08/15/2022 1:50 AM EDT) RBC, Urine 15(H) 0 - 4 /HPF [facility] Comment: Interpret results with caution, microscopic results are from suboptimal specimen volume WBC, Urine 5 0 - 5 /HPF [facility] Comment: Interpret results with caution, microscopic results are from suboptimal specimen volume Bacteria, Urine Many(A) None /HPF [facility] Comment: Interpret results with caution, microscopic results are from suboptimal specimen volume Squamous Epithelial Cells Raw Data, Urine 4 <=4 /HPF [facility] Hyaline Casts, Urine <1 0 - 2 /LPF [facility] Comment: Interpret results with caution, microscopic results are from suboptimal specimen volume Indwelling Catheter Urine 08/15/2022 1:50 AM EDT 08/15/2022 1:55 AM EDT Narrative Resulting Agency Comment Spec In Lab Tyler Cobb MD URINE ORDERABLES [facility] [place] [address] * (ABNORMAL) Urinalysis with reflex Culture (08/15/2022 1:50 AM EDT) Glucose, Urine Dipstick Negative Negative mg/dL [facility] Protein, Urine Dipstick Trace(A) Negative mg/dL [facility] Bilirubin, Urine Dipstick Negative Negative mg/dL [facility] Comment: Clinical correlation required for positive Urine Bilirubin results as false positive may occur with some drugs and drug related products. If a false positive is suspected a serum total bilirubin should be considered if clinically indicated. Urobilinogen, Urine Dipstick Normal Normal mg/dL [facility] pH, Urn (dipstick) 5.5 5.0 - 8.0 [facility] Blood, Urine Dipstick Large(A) Negative mg/dL [facility] Ketone, Urine Dipstick Trace(A) Negative mg/dL [facility] Nitrite, Urine Dipstick Negative Negative [facility] Leukocytes, Urine Dipstick Trace(A) Negative [facility] Appearance, Urine Dipstick Cloudy(A) Clear [facility] Specific [place] Urine Automated 1.015 1.005 - 1.030 [facility] Color, Urine Dipstick Yellow Yellow [facility] Reflex to Culture No [facility] Indwelling Catheter Urine 08/15/2022 1:50 AM EDT 08/15/2022 1:55 AM EDT Narrative Resulting Agency Comment Spec In Lab Carlos Terry MD URINE ORDERABLES [facility] [place] [address] * XR Chest One View (08/15/2022 1:14 [...] who have questions please contact the health patient care technician instructor that requested your imaging first. ? Narrative 08/15/2022 3:55 AM EDT EXAMINATION: XR CHEST ONE VIEW CLINICAL HISTORY: confirm [place] placement TECHNIQUE: 1 view of the chest COMPARISON: 08/15/2022 Procedure Note Davi Terry MD - 08/15/2022 EXAMINATION: XR CHEST ONE VIEW CLINICAL HISTORY: confirm [place] placement TECHNIQUE: 1 view of the chest [...] patients who have questions please contactthe health patient care technician instructor that requested your imaging first. Carlos Terry MD IMG DX ORDERABLES * (ABNORMAL) Coox2 (08/15/2022 1:13 AM EDT) pO2, Coox 36 mmHg [facility] Hgb Blood Gas 11.4(L) 11.7 - 15.5 g/dL [facility] Oxyhemoglobin, Coox 63.3 % [facility] Carboxyhemoglo bin, Coox 0.6 % [facility] Comment: Nonsmokers: 0.5-1.5% COHB Smokers: Variable, but usually less than 10% Toxic: 20-30% COHB Lethal: Greater than 60% COHB Methemoglobin, Coox 0.8 <=1.5 % [facility] Source Coox Mixed Venous [facility] Blood 08/15/2022 1:13 AM EDT 08/15/2022 1:13 AM EDT Carlos Terry MD POINT OF CARE TEST O RDERABLES [facility] [place] [address] * Blood culture (08/15/2022 1:10 AM EDT) Blood Culture No growth at 5 days. [facility] Blood 08/15/2022 1:10 AM EDT 08/15/2022 2:05 AM EDT Comment:neck Narrative Resulting Agency Comment Spec In Lab Carlos Terry MD MICROBIOLOGY - BLOOD ORDERABLES [facility] [address] * XR Chest One View (08/15/2022 1:00 [...] who have questions please contact the health patient care technician instructor that requested your imaging first. ? Narrative [...] patients who have questions please contactthe health patient care technician instructor that requested your imaging first. Carlos Terry MD IMG DX ORDERABLES * MRSA PCR Screen ([facility]) (08/15/2022 12:50 AM EDT) Pathologist [facility] MRSA PCR Negative Negative [facility] MRSA (Interp) Methicillin-resist ant Staphylococcus aureus (MRSA) is NOT DETECTED The MRSA target DNA sequences (mec and SCC) were not detected within the acceptable ranges using the Xpert MRSA NxG on the GeneXpert Dx System ([place]). This suggests the absence of MRSA in the patient specimen submitted for testing. This test is cleared by the U.S. Food and Drug Administration for clinical use and its performance characteristics have been verified by the [facility] at [facility]. This result does not rule out the presence of any other organisms. Rare false negative results may occur if MRSA is present at low concentrations with much higher concentrations of other organisms including MRSE or S. aureus with an empty SCC cassette. [facility] Comment: [VERIFIED DATE]08.17.22 Verified By:Shannon Smiley (Electronic Signature) Nasopharyngeal Swab 08/16/19 12:50 AM EDT 08/17/2022 8:38 AM EDT Comment:Specimen Type->Nasop haryngeal Swab Narrative Resulting Agency Comment Spec In Lab Carlos Terry MD MOLECULAR ORDERABLES Performing Organization Address City/[facility]/ZIP Co de Phone Number [facility] [place] [address] * TSH [place] (08/15/2022 12:00 AM EDT) Thyroid Stimulating Hormone 0.28 0.27 - 4.20 mcIU/mL [facility] Comment: Reference Interval (mcIU/mL): Females: ??First Trimester: 0.23-3.88 ??Second Trimester: 0.22-3.90 ??Third Trimester: 0.44-4.66 Blood Venous Draw / Unknown 08/15/2022 08/15/2022 12:26 AM EDT Narrative Resulting Agency Comment Spec In Lab Jigar Streeter MD CHEMISTRY ORDERABLES Performing Organization Address [facility] Co de Phone Number [facility] [place] [address] * Gold Tube HOLD (08/15/2022 12:00 AM EDT) Pathologist [facility] Gold Hold Sample in lab. [facility] Blood Venous Draw / Unknown 08/15/2022 08/15/2022 12:16 AM EDT Tyler Cobb MD CHEMISTRY ORDERABLES Performing Organization Address [facility] Co de Phone Number [facility] [place] [address] * (ABNORMAL) APTT (08/15/2022 12:00 AM EDT) Partial Thromboplastin Time 154(Criti tonya) 25 - 37 sec [facility] LABORATORY Comment: Critical Result called by ?? [...] ORDERABLE S Performing Organization Address [facility] Co de Phone Number [facility] [place] [address] * (ABNORMAL) Prothrombin Time (08/15/2022 12:00 AM EDT) Prothrombin Time 22.3(H) 9.4 - 12.5 sec [facility] International Normalization Ratio 2.0 [facility] Comment: An INR <2.0 indicates adequate [...] ORDERABLE S Performing Organization Address [facility] Co de Phone Number [facility] [place] [address] * (ABNORMAL) BLOOD GAS 2 ARTERIAL (08/14/2022 11:57 PM EDT) pH, Arterial 7.25(Criti tonya) 7.35 - 7.45 [facility] Comment:Noted by framing mill operator. PCO2, Arterial 42 35 - 45 mmHg [facility] PO2, Arterial 242(H) 85 - 104 mmHg [facility] Bicarbonate, Arterial 17.9(L) 20.0 - 26.0 mmol/L [facility] Base Excess, Arterial -9.3(L) -3.0 - 3.0 mmol/L [facility] Hgb Blood Gas 11.2(L) 11.7 - 15.5 g/dL [facility] Oxyhemoglobin, Arterial 98.0(H) 94.0 - 97.0 % [facility] Carboxyhemoglob in, Arterial 0.3 % [facility] Comment: Nonsmokers: 0.5-1.5% COHB Smokers: Variable, but usually less than 10% Toxic: 20-30% COHB Lethal: Greater than 60% COHB Methemoglobin, Arterial 0.9 <=1.5 % [facility] Na Whole Blood 140 135 - 145 mmol/L [facility] K Whole Blood 3.5 3.5 - 5.0 mmol/L [facility] Comment: Please note: Patients with WBC >100,000 may have falsely elevated Potassium levels. Contact the Clinical Chemistry Laboratory if there are any questions. ICa Whole Blood 1.16 1.15 - 1.33 mmol/L [facility] Comment: Note: ??Total bilirubin higher than 20 mg/dL may lead to falsely low ionized calcium. CL Whole Blood 110(H) 98 - 107 mmol/L [facility] Gluc Whole Bld 235(H) 65 - 199 mg/dL [facility] Comment:Diabetes: >=200 mg/d L plus symptoms. Lactate WB 2.6(H) 0.5 - 2.2 mmol/L [facility] FIO2 Art 60 % [facility] PF Ratio Art 403 [facility] Blood 08/14/2022 11:5 7 PM EDT 08/14/2022 11:57 PM EDT Carlos Terry MD POINT OF CARE TEST O RDERABLES Performing Organization Address City/[facility]/ZIP Co de Phone Number [facility] [place] [address] * Scan, Peripheral Blood (08/14/2022 11:55 PM EDT) Plat estimate Increased [facility] RBC Morphology Abnormal [facility] Microcyte 6-10 /HPF [facility] Hypochromia Moderate [facility] Connor Cells gtr than 10 /HPF [facility] Platelet Clumps Present [facility] Blood 08/14/2022 11:5 5 PM EDT 08/15/2022 12:06 AM EDT Narrative Resulting Agency Comment Spec In Lab Tyler Cobb MD HEMATOLOGY ORDERABLE S [facility] [place] [address] * Vancomycin Level, Random (08/14/2022 11:55 PM EDT) Vancomycin, Random 12.1 mg/L [facility] Comment: This level is for determination of the patient's vancomycin xgbs-iyvki-yvp-curve (AUC) value. Contact the inpatient pharmacy for interpretation. Blood Venous Draw / Unknown 08/14/2022 11:55 PM EDT 08/15/2022 12:11 AM EDT Carlos Terry MD [place] [address] * (ABNORMAL) Differential, Automated (08/14/2022 11:55 PM EDT) Neutrophil % 91.3 % [facility] Neutrophil Absolute 33.56(H) 1.70 - 6.10 x10(3)/mc L [facility] Lymph % 1.2 % [facility] Lymphocytes Abs 0.4(L) 0.9 - 3.2 x10(3)/mc L [facility] Monocyte % 4.4 % [facility] Monocyte Abs 1.6(H) 0.3 - 0.9 x10(3)/mc L [facility] Eos % 0.5 % [facility] Eosinophils Abs 0.2 0.0 - 0.4 x10(3)/mc L [facility] Basophil % 0.5 % [facility] Baso Absolute 0.2(H) 0.0 - 0.1 x10(3)/mc L [facility] Immature Gran % 2.10 % [facility] Comment: Immature granulocytes(IG's)percentage and absolute count will include metamyelocytes, myelocytes, and promyelocytes. Blood smears from CBCs yielding IG's will be scanned manually for concordance. If this scan disagrees with the automated IG or if promyelocytes are noted, a manual differential will be performed. Immature Gran Absolute 0.77(H) 0.00 - 0.04 x10(3)/mc L [facility] Blood 08/14/2022 11:5 5 PM EDT 08/15/2022 12:06 AM EDT Narrative Resulting Agency Comment Spec In Lab Tyler Cobb MD HEMATOLOGY ORDERABLE S [facility] [place] [address] * (ABNORMAL) Hemogram (08/14/2022 11:55 PM EDT) White Blood Cell 36.7(Critica l) 4.0 - 9.5 x10(3)/mc L [facility] Comment: This result has been called to HARLEY CASON by Cedric Forbes on 08 15 2022 at 0018, and has been read back. Red Blood Cell 5.28(H) 4.00 - 5.21 x10(6)/mc L [facility] Hemoglobin 10.7(L) 11.7 - 15.5 g/dL [facility] Hematocrit 35.9 35.7 - 45.8 % [facility] Mean Cell Volume 68.0(L) 82.6 - 94.4 fL [facility] Mean Cell Hemoglobin 20.3(L) 27.1 - 32.0 pg [facility] Mean Cell Hemoglobin Concentration 29.8(L) 31.7 - 35.0 g/dL [facility] Platelet 370(H) 145 - 357 x10(3)/mc L [facility] RDW Standard Deviation 68.2(H) 37.0 - 46.0 fL [facility] RDW coefficient of variation 29.3(H) 11.5 - 14.1 % [facility] Mean Platelet Volume Not Measured 7.6 - 12.9 fL [facility] NRBC% auto 0.2 % [facility] NRBC Absolute 0.080(H) 0.000 - 0.000 x10(3)/mc L [facility] Blood 08/14/2022 11:5 5 PM EDT 08/15/2022 12:06 AM EDT Narrative Resulting Agency Comment Spec In Lab Tyler Cobb MD HEMATOLOGY ORDERABLE S Performing Organization Address City/[facility]/ZIP Co de Phone Number [facility] [place] [address] * Blood culture (08/14/2022 11:55 PM EDT) Blood Culture No growth at 5 days. [facility] Blood 08/14/2022 11:5 5 PM EDT 08/15/2022 1:51 AM EDT Comment:R wrist Narrative Resulting Agency Comment Spec In Lab Carlos Terry MD MICROBIOLOGY - BLOOD ORDERABLES Performing Organization Address [facility] Co de Phone Number [facility] [place] [address] * (ABNORMAL) pro-Brain Natriuretic Peptide (08/14/2022 11:55 PM EDT) NT-proBNP >35,000(H) <=124 pg/mL [facility] Blood 08/14/2022 11:5 5 PM EDT 08/15/2022 12:06 AM EDT Narrative Resulting Agency Comment Spec In Lab Carlos Terry MD CHEMISTRY ORDERABLES Performing Organization Address [facility] Co de Phone Number [facility] [place] [address] * (ABNORMAL) Phosphorus (08/14/2022 11:55 PM EDT) Phosphorus 5.9(H) 2.5 - 4.5 mg/dL [facility] Blood 08/14/2022 11:5 5 PM EDT 08/15/2022 12:06 AM EDT Narrative Resulting Agency Comment Spec In Lab Carlos Terry MD CHEMISTRY ORDERABLES Performing Organization Address City/[facility]/ZIP Co de Phone Number [facility] [place] [address] * Magnesium (08/14/2022 11:55 PM EDT) Magnesium 0.97 0.69 - 1.07 mmol/L [facility] Blood 08/14/2022 11:5 5 PM EDT 08/15/2022 12:06 AM EDT Narrative Resulting Agency Comment Spec In Lab Carlos Terry MD CHEMISTRY ORDERABLES [facility] [place] [address] * (ABNORMAL) Troponin (08/14/2022 11:55 PM EDT) Troponin-T, High Sensitivity 617(H) <=14 ng/L [facility] Comment: This patient's troponin T concentration [...] troponin value can be found in the [facility] Laboratory Test Catalog Troponin - [facility] Test Catalog Reference: Fourth [place] Definition of Myocardial Infarction. Journal of the [place] [employer] 2018;72:7403-9862 Blood 08/14/2022 11:5 5 PM EDT 08/15/2022 12:06 AM EDT Narrative Resulting Agency Comment Spec In Lab Carlos Terry MD CHEMISTRY ORDERABLES [facility] [place] [address] * (ABNORMAL) Basic Metabolic Panel (non-fasting) (08/14/2022 11:55 PM EDT) Glucose 258(H) 65 - 199 mg/dL [facility] Comment:Diabetes: >=200 mg/d L plus symptoms Blood Urea Nitrogen 36(H) 8 - 18 mg/dL [facility] Creatinine 1.40(H) 0.70 - 1.20 mg/dL [facility] Sodium 141 135 - 145 mmol/L [facility] Potassium 4.0 3.5 - 5.0 mmol/L [facility] Comment: Please note: ??Patients with WBC >100,000 may have falsely elevated Potassium levels. ??For accurate Potassium quantification in these patients send serum separator tube (gold top) for subsequent determinations. ??Contact the Clinical Chemistry Laboratory if there are any questions. Chloride 107 98 - 107 mmol/L [facility] Carbon Dioxide 17(L) 22 - 31 mmol/L [facility] Anion Gap 17(H) 5 - 15 mmol/L [facility] Calcium 8.5 8.5 - 10.5 mg/dL [facility] Est Glomerular Filtration Rate 43(L) >=60 mL/min/1. 73 m?? [facility] Comment: This patient's estimated GFR was [...] In Lab Carlos Terry MD CHEMISTRY ORDERABLES [facility] [place] [address] * (ABNORMAL) Point of Care Blood Gas Historical (08/14/2022 10:32 PM EDT) pH, POC 7.15(Crit ical) 7.35 - 7.45 [facility] Comment:Critical result OK - [facility] pCO2, POC 68(Critic al) 35 - 45 mmHg [facility] Comment:Critical result OK - [facility] pO2, POC 47(Critic al) 85 - 104 mmHg [facility] Comment:Critical result OK - [facility] Base Excess, POC -5.0(L) -3.0 - 3.0 mmol/L [facility] Bicarbonate, POC 23.9 20.0 - 26.0 mmol/L [facility] Sodium, POC 142 135 - 145 mmol/L [facility] POC Potassium 3.8 3.5 - 5.0 mmol/L [facility] Ionized Calcium, POC 1.21 1.15 - 1.33 mmol/L [facility] POC Hematocrit 36.0 34.0 - 45.0 % [facility] POC Calc Hgb 12.2 11.2 - 15.7 g/dL [facility] Comment:The calculation of h emoglobin from hematocrit assumes a normal MCHC. POC Bgas Loc [facility] Blood 08/14/2022 10:3 2 PM EDT 08/16/2022 12:00 PM EDT Carlos Terry MD CHEMISTRY ORDERABLES [facility] [place] [address] * Film Library- Storage Only DX Chest [...] is for storage only. Audi Serna MD [facility] ORD ERABLES * Film Library- Storage Only DX Chest (08/12/2022 12:05 AM EDT) Narrative Dicom, Auditing User - 08/15/2022 8:37 AM EDT This exam is auto-finalizing. It's purpose is for storage only. Audi Serna MD [facility] ORD ERABLES * Film Library- Storage Only CT Chest (08/12/2022 12:00 AM EDT) Narrative Dicom, Auditing User - 08/15/2022 8:36 AM EDT This exam is auto-finalizing. It's purpose is for storage only. Audi Serna MD [facility] ORD ERABLES * Film Library- Storage Only DX Chest (08/08/2022 12:15 AM EDT) Narrative Dicom, Auditing User - 08/15/2022 8:43 AM EDT This exam is auto-finalizing. It's purpose is for storage only. Audi Serna MD [facility]M [facility] ORD ERABLES * Film Library- Storage Only DX Pelvis (08/08/2022 12:10 AM EDT) Narrative Dicom, Auditing User - 08/15/2022 8:37 AM EDT This exam is auto-finalizing. It's purpose is for storage only. Audi Serna MD [facility] ORD ERABLES * Film Library- Storage Only DX Lower Extremity (08/08/2022 12:05 AM EDT) Narrative Dicom, Auditing User - 08/15/2022 8:37 AM EDT This exam is auto-finalizing. It's purpose is for storage only. Audi Serna MD IM FILM LIBRARY ORD ERABLES documented in this [...] 10 mg, Oral, DAILY, First dose on Sat 23 at 0900, Until Discontinued, Per G tube [...] DAILY, First dose (after last modification) on 09/21/22 at 2100, Until Discontinued, Routine Given 09/25/2022 [...] at 1327, Cycle x 14 hrs from 3586-4822 daily Administer flushes and check residuals per policy, Which tube feed product? Nutren 1.5, Additional Information (if any): Cycle x 14 hrs from 1411-8737 daily New Bag 09/24/2022 6:16 AM EDT [...] Oral, 2 TIMES DAILY, First dose on Wed08/15/22 at 1000, Until Discontinued, Routine 0837 (Given [...] Provider: Sofia Montoya RN - Comment: BG 186)115 (Given - Provider: Leann Harding RN)164 (Given [...] on Wed09/18/22 at 0900, Until Discontinued, Routine 0900 (Given - Provider: Leann Harding RN) 09 (Given - Provider: Leann Harding RN) [...] RN)2045 (Given - Provider: Nubia Greenwood RN) 0822 (Given - Provider: Leann Harding RN) sodium chloride 0.9 % (flush) (BD PosiFlush Normal Saline 0.9) flush 5 mL 5 mL, Intravenous, 2 TIMES DAILY, First dose on Wed08/15/22 at 0000, Until Discontinued, Routine 0838 (Given - Provider: Leann Harding RN)2018 (Given - Provider: Sofia Montoya RN) 09 (Given - Provider: Leann Harding RN)2046 (Given [...] Leann Harding RN)2008 (Given - Provider: Sofia Montoya RN) 032 (Given - Provider: Sofia Montoya RN)0914 (Given - Provider: Leann Harding RN)142 (Given [...] at 1327, Cycle x 14 hrs from 1417-1410 daily Administer flushes and check residuals per policy, Which tube feed product? Nutren 1.5, Additional Information (if any): Cycle x 14 hrs from 8795-8983 daily 0600 (New Bag - Provider: Sofia [...] documented as of this encounter Care Teams Area Mechanic Relationship Specialty Start Date End Date Chris Stanley APRN [address] [place] [address] PCP - General Family Medicine 02/03/19 documented as of this encounter
--- OUTSIDE RECORDS SUMMARY | 2024-05-19 20:39 | XMS_ITS | Encounter Summary ---
Author Organization [facility] [place] [address] Care Team Providers Care Manager Quality Compliance Name Role Phone Ana Gillespie VAUGHN Primary Care Provider [phone] Reason for Visit * Auth/Cert (Routine) Specialty Diagnoses / Procedures Referred By Esperanza rodríguez Referred To Contact Diagnoses Shock CARDIOGENIC PULMONARY EDEMA Procedures ER Shira Melton MD [facility] [place] [address] [facility] Referral ID Status Reason Start Date Expiration Date Visits Re quested Visits Authorized [id number] 1 1 Encounter Details Date Type Department Care Team (Latest Contact Info) Description 08/15/2022 9:15 AM EDT - 08/15/2022 11:59 PM EDT Hospital Encounter Non-Invasive [place] [address] Discharge Disposition: Home Social History Tobacco Use [...] meter kit. 1 each 0 12/14/2014 Insulin [place], Disposable, (BD INSULIN PEN NEEDLE UF MINI) [...] 05/26/2024 1:10 PM [place] [address] Gavin Carrillo MD [facility] [place] [address] 06/05/2024 1:20 PM EST Office Visit Cardiology at [address] [address] Milagros Hernandez MD [facility] [place] [address] Scheduled Procedures Name Priority Associated [...] 09:38 AMBP: 102/54 mmHg ? Patient Location: [address] [place] [address] ? HR: 99 : 1960 ? Height: 152 cm ? Account: [id number] Age: 62 yrs ? Weight: 69 kg Gender: Female ?BSA: 1.7 m2 Ordering Physician: PETRONA^SHIRA^M Referring Physician: NIURKA AYALA Performed By: Raissa Bhakta RDCS Reason For Study: Septic shock Exam Location: [facility]. Interpretation Summary -Left ventricle is mildly [...] today's date, LVEF is slightly improved. Procedure Complete-[id number]. Satisfactory quality. There is normal sinus rhythm. [...] Aneurysmal ?15-16 ?? diffuse Procedure Note Shira Trery MD - 08/15/2022 Echocardiogram Report Name: ISHAN IRVING Study Date: 309:38 AMBP: 102/54 mmHg Patient Location: [id number] HR: 99 : 1960 Height: 152 cm Account: [id number] Age: 62 yrs Weight: 69 kg Gender: Female BSA: 1.7 m2 Ordering Physician: FANY Referring Physician: NIURKA AYALA Performed By: Raissa Bhakta RDCS Reason For Study: Septic shock Exam Location: [facility]. Interpretation Summary -Left ventricle is mildly [...] today's date, LVEF is slightly improved. Procedure Complete-[id number]. Satisfactory quality. There is normal sinus rhythm. [...] documented as of this encounter Care Teams Manager Quality Compliance Relationship Specialty Start Date End Date Ana Gillespie APRN [address] [place] [address] PCP - General Family Medicine 02/03/19 documented as of this encounter
--- OUTSIDE RECORDS SUMMARY | 2024-05-19 20:39 | XMS_ITS | Encounter Summary ---
[place] [address] Care Team Providers Care Two Way Radio Installer Name Role Phone Ana Gillespie VAUGHN Primary Care Provider [phone] Encounter Details Date Type Department Care Team (Late st Contact Info) Description 06/23/2022 Telephone [place] [phone] Jessica Beckman Social History Tobacco Use Types [...] 05/26/2024 1:10 PM EST Appointment [place] [phone] Gavin Carrillo MD [facility] INTERVENTIONAL [place] [address] 06/05/2024 1:20 PM EST Office Visit Cardiology at [address] [address] Milagros Hernandez MD [facility] [place] [address] Scheduled Procedures Name Priority Associated Diagnoses Date/Ti me EGD, UPPER GI ENDOSCOPY (WRV U 2.09) Peptic stricture of esophagus documented as of this encounter Visit Diagnoses Not on filedocumented in this encounter Care Teams Two Way Radio Installer Relationship Specialty Start Date End Date Ana Gillespie APRN [address] [place] [address] PCP - General Family Medicine 02/03/19 documented as of this encounter
--- OUTSIDE RECORDS SUMMARY | 2024-05-19 20:39 | XMS_ITS | Encounter Summary ---
Author Organization [facility] Address [facility] [place] [address] Care Team Providers Care Veneer Cutter Name Role Phone Ana Gillespie MOTION STUDY ANALYST Primary Care Provider Encounter Details Date Type Department Care Team (Late st Contact Info) Description 06/23/2022 Telephone [place] [address] Chiquita James, RN Social History [...] 1:10 PM EST Appointment [place] [address] Gavin Carrillo MD [facility] [place] [address] 06/05/2024 1:20 PM EST Office Visit Cardiology at [address] [address] Milagros Hernandez MD [facility] [place] [address] Scheduled Procedures Name Priority Associated Diagnoses Date/Ti me EGD, UPPER GI ENDOSCOPY (WRV U 2.09) Peptic stricture of esophagus documented as of this encounter Visit Diagnoses Not on filedocumented in this encounter Care Teams Veneer Cutter Relationship Specialty Start Date End Date Ana Gillespie APRN [address] [place] [address] PCP - General Family Medicine 02/03/19 documented as of this encounter
--- OUTSIDE RECORDS SUMMARY | 2024-05-19 20:39 | XMS_ITS | Encounter Summary ---
Author Organization [facility] Address [facility] [place] [address] Care Team Providers Care Art History Professor Name Role Phone Ana Gillespie VAUGHN Primary Care Provider [phone] Encounter Details Date Type Department Care Team (Late st Contact Info) Description 08/08/2022 12:10 AM EDT Ancillary Procedure Radiology Library at [facility] [place] [phone] Social History Tobacco Use Types Packs/Day Years [...] 05/26/2024 1:10 PM [place] [phone] Gavin Carrillo MD [facility] [place] [address] 06/05/2024 1:20 PM EST Office Visit Cardiology at [address] [phone] Milagros Hernandez MD [facility] [place] [address] Scheduled Procedures Name Priority Associated Diagnoses Date/Ti [...] for storage only. Ayo Serna MD [facility] FILM LIBRARY ORD ERABLES documented in this encounter Visit Diagnoses Not on filedocumented in this encounter Care Teams Art History Professor Relationship Specialty Start Date End Date Ana Gillespie APRN [address] [place] [address] PCP - General Family Medicine 02/03/19 documented as of this encounter
--- OUTSIDE RECORDS SUMMARY | 2024-05-19 20:39 | XMS_ITS | Encounter Summary ---
Author Organization [facility] Address [facility] [place] [address] Care Team Providers Care Suction Dredge Dumping Supervisor Name Role Phone Ana Gillespie VAUGHN Primary Care Provider [phone] Encounter Details Date Type Department Care Team (Late st Contact Info) Description 08/08/2022 12:05 AM EDT Ancillary Procedure Radiology Library at [facility] [place] [phone] Social History Tobacco Use Types Packs/Day Years [...] 05/26/2024 1:10 PM EST Appointment [place] [phone] Gavin Carrillo MD [facility] [place] [address] 06/05/2024 1:20 PM EST Office Visit Cardiology at [address] [phone] Milagros Hernandez MD [facility] [place] [address] Scheduled Procedures Name Priority Associated Diagnoses Date/Ti [...] on filedocumented in this encounter Care Teams Suction Dredge Dumping Supervisor Relationship Specialty Start Date End Date Ana Gillespie APRN [address] [place] [address] PCP - General Family Medicine 02/03/19 documented as of this encounter
--- OUTSIDE RECORDS SUMMARY | 2024-05-19 20:39 | XMS_ITS | Encounter Summary ---
Author Organization [facility] Address [facility] [place] [address] Care Team Providers Care Career Services Assistant Name Role Phone Ana Gillespie VAUGHN Primary Care Provider [phone] Encounter Details Date Type Department Care Team (Late st Contact Info) Description 08/14/2022 External Results Administration [place] [phone] Social History Tobacco Use Types Packs/Day Years [...] 05/26/2024 1:10 PM [place] [address] Gavin Carrillo MD [facility] [place] [address] 06/05/2024 1:20 PM EST Office Visit Cardiology at [address] [phone] Milagros Hernandez MD [facility] [place] [address] Scheduled Procedures Name Priority Associated [...] documented as of this encounter Care Teams Career Services Assistant Relationship Specialty Start Date End Date Ana Gillespie APRN [address] [place] [address] PCP - General Family Medicine 02/03/19 documented as of this encounter
--- OUTSIDE RECORDS SUMMARY | 2024-05-19 20:39 | XMS_ITS | Encounter Summary ---
Author Organization [facility] Address [facility] Marly petersen [place] [id number] Care Team Providers Care Leather Whitener Name Role Phone Ana Gillespie APRN Primary Care Provider [phone] Encounter Details Date Type Department Care Team [...] 05/26/2024 1:10 PM EST Appointment Radiology at [place] [phone] Gavin Carrillo MD [facility] [place] [address] 06/05/2024 1:20 PM EST Office Visit Cardiology at [address] [address] Milagros Hernandez MD [facility] [place] [address] Scheduled Procedures Name Priority Associated Diagnoses Date/Ti me EGD, UPPER GI ENDOSCOPY (WRV U 2.09) Peptic stricture of esophagus documented as of this encounter Visit Diagnoses Not on filedocumented in this encounter Care Teams Leather Whitener Relationship Specialty Start Date End Date Ana Gillespie APRN [address] [place] [address] PCP - General Family Medicine 02/03/19 documented as of this encounter
--- OUTSIDE RECORDS SUMMARY | 2024-05-19 20:39 | XMS_ITS | Encounter Summary ---
Author Organization [facility] Address [facility] [place] [address] Care Team Providers Care Educational Paraprofessional Name Role Phone Ana Gillespie VAUGHN Primary Care Provider [phone] Encounter Details Date Type Department Care Team (Late st Contact Info) Description 08/08/2022 12:15 AM EDT Ancillary Procedure Radiology Library at [facility] [place] [phone] Social History Tobacco Use Types Packs/Day Years [...] 05/26/2024 1:10 PM EST App[place] [phone] Gavin Carrillo MD [facility] [place] [address] 06/05/2024 1:20 PM EST Office Visit Cardiology at [address] [address] Milagros Hernandez MD [facility] [place] [address] Scheduled Procedures Name Priority Associated Diagnoses Date/Ti [...] is for storage only. Ayo Serna MD [facility] FILM LIBRARY ORD ERABLES documented in this encounter Visit Diagnoses Not on filedocumented in this encounter Care Teams Educational Paraprofessional Relationship Specialty Start Date End Date Ana Gillespie APRN [address] [place] [address] PCP - General Family Medicine 02/03/19 documented as of this encounter
--- OUTSIDE RECORDS SUMMARY | 2024-05-19 20:39 | XMS_ITS | Encounter Summary ---
Author Organization [facility] Address [facility] [place] [id number] Care Team Providers Care Styrene Dehydration Reactor Operator Name Role Phone Ana Gillespie APRN Primary Care Provider [phone] Encounter Details Date Type Department Care Team [...] 05/26/2024 1:10 PM EST Appointment Radiology at [place] [phone] Gavin Carrillo MD [facility] [place] [address] 06/05/2024 1:20 PM EST Office Visit Cardiology at [address] [address] Milagros Hernandez MD [facility] [place] [address] Scheduled Procedures Name Priority Associated Diagnoses Date/Ti me EGD, UPPER GI ENDOSCOPY (WRV U 2.09) Peptic stricture of esophagus documented as of this encounter Visit Diagnoses Not on filedocumented in this encounter Care Teams Styrene Dehydration Reactor Operator Relationship Specialty Start Date End Date Ana Gillespie APRN [address] [place] [address] PCP - General Family Medicine 02/03/19 documented as of this encounter
--- OUTSIDE RECORDS SUMMARY | 2024-05-19 20:39 | XMS_ITS | Encounter Summary ---
Author Organization [facility] [place] [address] Care Team Providers Care Paraffin Plant Operator Name Role Phone Ana Gillespie VAUGHN Primary Care Provider [phone] Encounter Details Date Type Department Care Team (Late st Contact Info) Description 08/12/2022 Ancillary Procedure Radiology Library at [facility] [place] [phone] Social History Tobacco Use Types Packs/Day Years [...] 05/26/2024 1:10 PM [place] [address] Gavin Carrillo MD [facility] [place] [address] 06/05/2024 1:20 PM EST Office Visit Cardiology at [address] [address] Milagros Hernandez MD [facility] [place] [address] Scheduled Procedures Name Priority Associated [...] is for storage only. Ayo Serna MD [facility] FILM LIBRARY ORD ERABLES documented in this encounter Visit Diagnoses Not on filedocumented in this encounter Care Teams Paraffin Plant Operator Relationship Specialty Start Date End Date Ana Gillespie APRN [address] [place] [address] PCP - General Family Medicine 02/03/19 documented as of this encounter
--- OUTSIDE RECORDS SUMMARY | 2024-05-19 20:39 | XMS_ITS | Encounter Summary ---
Author Organization [facility] [place] [address] Care Team Providers Care Teletray Operator Name Role Phone Jose Miguel Ana CAREER DEVELOPMENT COORDINATOR Primary Care Provider [phone] Encounter Details Date Type Department Care Team (Late st Contact Info) Description 08/08/2022 Ancillary Procedure Radiology Library at [facility] [place] [phone] Ana Gillespie APRN [address] [place] [address] Social History Tobacco Use Types [...] 05/26/2024 1:10 PM EST [place] [phone] Gavin Carrillo MD [facility] [place] [address] 06/05/2024 1:20 PM EST Office Visit Cardiology at [address] [phone] Milagros Hernandez MD [facility] [place] [address] Scheduled Procedures Name Priority Associated Diagnoses Date/Ti me EGD, UPPER GI ENDOSCOPY (WRV U 2.09) Peptic stricture of esophagus documented as of this encounter Procedures Procedure Name Priority Date/Time Associated Diagnosis Comments FILM LIBRARY STORAGE ONLY CT LOWER EXTREMITY Routine 08/08/2022 12:00 AM EDT documented in this encounter Results * Film Library- Storage Only CT Lower Extremity (08/08/2022 12:00 AM EDT) Narrative [facility] - 08/14/2022 6:04 PM EDT This exam is auto-finalizing. It's purpose is for storage only. Ana Gillespie APRN [facility] FILM LIBRARY ORD ERABLES [place], [place] documented in this encounter Visit Diagnoses Not on filedocumented in this encounter Care Teams Teletray Operator Relationship Specialty Start Date End Date Ana Gillespie APRN [address] [place] [address] PCP - General Family Medicine 02/03/19 documented as of this encounter
--- OUTSIDE RECORDS SUMMARY | 2024-05-19 20:39 | XMS_ITS | Encounter Summary ---
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 Social History Tobacco [...] 05/26/2024 1:10 PM EST Appoint[place] [address] Gavin Carrillo MD [facility] [place] [address] 06/05/2024 1:20 PM EST Office Visit Cardiology at [address] [phone] Milagros Hernandez MD [facility] [place] [address] Scheduled Orders Name Type Priority Associated Diagnoses [...] documented in this encounter Care Teams Dry Cleaning Attendant Relationship Specialty Start Date End Date Ana Gillespie APRN [address] [place] [address] PCP - General Family Medicine 02/03/19 documented as of this encounter
--- OUTSIDE RECORDS SUMMARY | 2024-05-19 20:39 | XMS_ITS | Encounter Summary ---
Author Organization [facility] [place] [address] Care Team Providers Care Founder Ceo & President Name Role Phone Ana Gillespie VAUGHN Primary Care Provider [phone] Encounter Details Date Type Department Care Team (Late st Contact Info) Description 08/14/2022 Telephone Cardiology at [address] [phone] Jesenia Mejía MD Social History Tobacco Use Types Packs/Day Years [...] 08/14/2022 Initial Contact Time: 17:36 Patient Location: [facility] Provider: Dr. [place] Presenting Symptoms per [...] code status [facility] Pertinent Diagnostic Findings: - Troponin-I 1686 (ULN 60) - Pro-BNP > 35,000 - ECG sinus tachycardia with PVCs, anterior Q waves OSH Interventions: - Dobutamine 2.5 mcg/kg/shawanda - Lasix gtt 5 mg/hr - Heparin gtt - Aspirin 300 rectal BID (after hip) Plan: - Transfer to [facility] - Plavix load Above recommendations/plans are based on my conversation with the referring provider. I have not personally interviewed or examined this patient. Jesenia Mejía MD Bank Manager PGY-5 [facility] documented in this encounter Plan of Treatment Upcoming Encounters Date Type Department Care Team (Late st Contact Info) Description 05/26/2024 1:10 PM EST Appointment [place] [phone] Gavin Carrillo MD [facility] [place]ION[place] [address] 06/05/2024 1:20 PM EST Office Visit Cardiology at [address] [phone] Milagros Hernandez MD [facility] [place] [address] Scheduled Procedures Name Priority Associated Diagnoses Date/Ti me EGD, UPPER GI ENDOSCOPY (WRV U 2.09) Peptic stricture of esophagus documented as of this encounter Visit Diagnoses Not on filedocumented in this encounter Care Teams Founder Ceo & President Relationship Specialty Start Date End Date Ana Gillespie APRN [address] [place] [address] PCP - General Family Medicine 02/03/19 documented as of this encounter
--- OUTSIDE RECORDS SUMMARY | 2024-05-19 20:39 | XMS_ITS | Encounter Summary ---
Author Organization [facility] [place] [address] Care Team Providers Care Solar Installer Name Role Phone Ana Gillespie VAUGHN Primary Care Provider [phone] Encounter Details Date Type Department Care Team (Late st Contact Info) Description 08/15/2022 [place] [phone] Unknown None Social History Tobacco Use Types [...] 05/26/2024 1:10 PM EST Appointment [place] [address] Gavin Carrillo MD [facility] [place] [address] 06/05/2024 1:20 PM EST Office Visit Cardiology at [address] [phone] Milagros Hernandez MD [facility] [place] [address] Scheduled Procedures Name Priority Associated Diagnoses Date/Ti [...] filedocumented in this encounter Care Teams Solar Installer Relationship Specialty Start Date End Date Ana Gillespie APRN [address] [place] [address] PCP - General Family Medicine 02/03/19 documented as of this encounter
--- OUTSIDE RECORDS SUMMARY | 2024-05-19 20:39 | XMS_ITS | Encounter Summary ---
Author Organization [facility] [address] Care Team Providers Care Laboratory Development Technician Name Role Phone Ana Gillespie APRN Primary Care Provider [phone] Encounter Details Date Type Department Care Team (Late st Contact Info) Description 07/03/2022 8:40 AM EST Anesthesia [place] [phone] Shanell Taylor MD [place], [place] [facility] [place] [address] Anesthesia Record Procedure Summary Procedure Name Responsible [...] Procedure Summary Date: 07/03/22 Room / Location: [facility] ENDO 2 / [facility] Anesthesia Start: 839 Anesthesia Stop: 900 Procedure: EGD WITH BIOPSY (WRVU 2.49) (Trunk) Diagnosis: 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 [facility] [...] Dejesus MD at [facility] END[facility]COPY Social History Tobacco Use ??? [...] with patient and spouse. Plan discussed with CERTIFIED EXECUTIVE CHEF and attending. Anesthesia Screening Code Status: Full code I discussed the risks of general anesthesia as detailed by the preoperative anesthesia consent withthis patient. The patient demonstrated adequate understanding and acknowledged these risks and wishes to proceed with scheduled surgery. All questions related to anesthetic care were welcomed and answered to satisfaction. Shanell Taylor MD MS Anesthesiologist, [facility] Pager [phone] documented in this encounter Plan of Treatment Upcoming Encounters Date Type Department Care Team (Late st Contact Info) Description 05/26/2024 1:10 PM EST [place] [address] Gavin Carrillo MD [facility] [place] [address] 06/05/2024 1:20 PM EST Office Visit Cardiology at [address] [phone] Milagros Hernandez MD [facility] [place] [address] Scheduled Procedures Name Priority Associated [...] mg documented in this encounter Care Teams Laboratory Development Technician Relationship Specialty Start Date End Date Ana Gillespie APRN [address] [place] [address] PCP - General Family Medicine 02/03/19 documented as of this encounter
--- OUTSIDE RECORDS SUMMARY | 2024-05-19 20:39 | XMS_ITS | Encounter Summary ---
Author Organization [facility] [place] [address] Care Team Providers Care Ui Engineer Name Role Phone Ana Gillespie APRN Primary Care Provider [phone] Encounter Details Date Type Department Care Team (Late st Contact Info) Description 06/05/2022 Telephone [place] [address] Crissy Causey Social History Tobacco [...] 05/26/2024 1:10 PM [place] [address] Gavin Carrillo MD [facility] [place] [address] 06/05/2024 1:20 PM EST Office Visit Cardiology at [address] [phone] Milagros Hernandez MD [facility] [place] [address] Scheduled Procedures Name Priority Associated Diagnoses Date/Ti me EGD, UPPER GI ENDOSCOPY (WRV U 2.09) Peptic stricture of esophagus documented as of this encounter Visit Diagnoses Not on filedocumented in this encounter Care Teams Ui Engineer Relationship Specialty Start Date End Date Ana Gillespie APRN [address] [place] [address] PCP - General Family Medicine 02/03/19 documented as of this encounter
--- OUTSIDE RECORDS SUMMARY | 2024-05-19 20:39 | XMS_ITS | Encounter Summary ---
Author Organization [facility] Address [facility] [place] [address] Care Team Providers Care Sanding Machine Tender Automatic Name Role Phone Ana Gillespie VAUGHN Primary Care Provider [phone] Encounter Details Date Type Department Care Team (Latest Contact Info) Description 07/03/2022 7:08 AM EST - 07/03/2022 10:05 AM EST Hospital Encounter Gastroenterology at [facility] [place] [address] David Dejesus MD [facility] [place] [address] Discharge Disposition: Home Social History Tobacco Use [...] Care Everywhere. * EGD (Upper Endoscopy): Post-op (Citizen [place]) documented in this encounter Medications at Time [...] meter kit. 1 each 0 12/14/2014 Insulin [place], Disposable, (BD INSULIN PEN NEEDLE UF MINI) 31 x 3/16 NeedleIndications:Di abetes mellitus type 2, uncontrolled 1 Device by [facility] [...] for dosing. 15 mL 11 ??? Insulin [place], Disposable, (BD INSULIN PEN NEEDLE UF MINI) [...] 05/26/2024 1:10 PM EST App[place] [phone] Gavin Carrillo MD [facility] [place] [address] 06/05/2024 1:20 PM EST Office Visit Cardiology at [address] [phone] Milagros Hernandez MD [facility] [place] [address] Scheduled Procedures Name Priority Associated Diagnoses Date/Ti me EGD, UPPER GI ENDOSCOPY (WRV U 2.09) Peptic stricture of esophagus documented as of this encounter Procedures Procedure Name Priority Date/Time Associated Diagnosis Comments SURGICAL PATHOLOGY REPORT Routine 07/03/2022 9:02 AM EST SPECIMEN TO PATHOLOGY Routine 07/03/2022 9:02 AM EST SPECIMEN TO PATHOLOGY Routine 07/03/2022 9:02 AM EST Upper Gi Endoscopy, Biopsy ([id number]) 07/03/2022 8:39 AM EST Farrell's esophagus without dysplasia POCT GLUCOSE Routine 07/03/2022 7:37 AM EST UPPER GI ENDOSCOPY Routine 07/03/2022 7: 26 AM EST documented in this encounter Results * Surgical Pathology Report (07/03/2022 9:02 AM EST) Final Diagnosis [id number] ? Location: 4T; [facility]; A The signing pathologist has (i) [...] Note). Note: Immunostains for p53, CD31 and [id number] were evaluated for final diagnosis. Electronically signed by: ?Chinmay Nguyen MD Verified: ??07/08/2022 16:29 ??Pathologist Performed at: ??-[facility] Dept. of Pathology, [place] [address] Painter Spring: Vishal Gilliam MD, FCAP, ??CLIA Certificate: [id number] ADDITIONAL STUDIES Immunohistochemistry Studies: Formalin-fixed, paraffin-embedded tissue [...] note ? CD31 ? see note ? [id number] ? see note SPECIMEN(S) SUBMITTED A - [...] AM EST David Dejesus MD PATHOLOGY/CYTOLOGY ORDERABLES [facility] [place] [address] [facility] [place] [address] * Specimen to Pathology (07/03/2022 9:02 AM EST) AP Specimen 07/03/2022 9:02 AM EST 07/03/2022 9:02 AM EST Narrative [facility] - 07/03/2022 9:02 AM EST Specimen requisition ordered. ??Separate Pathology report to follow David Dejesus MD PATHOLOGY/CYTOLOGY ORDERABLES Performing Organization Address [facility]/ZIP Co de Phone Number [facility] [place] [address] * Specimen to Pathology (07/03/2022 9:02 AM EST) AP Specimen 07/03/2022 9:02 AM EST 07/03/2022 9:02 AM EST Narrative [facility] - 07/03/2022 9:02 AM EST Specimen requisition ordered. ??Separate Pathology report to follow David Dejesus MD PATHOLOGY/CYTOLOGY ORDERABLES Performing Organization Address [facility] Co de Phone Number [facility] [place] [address] * POCT Glucose (07/03/2022 7:37 AM EST) Glucose, POC 139 65 - 199 mg/dL [facility] Comment: Supplemental ranges: <140 mg/dL before meals <180 mg/dL all other times of the day Blood 07/03/2022 7:37 AM EST 07/03/2022 7:37 AM EST David Dejesus MD POINT OF CARE TEST ORDERABLES Performing Organization Address City/[facility] [place] [address] * UPPER GI ENDOSCOPY (07/03/2022 7:26 AM EST) UPPER GI ENDOSCOPY [facility] Procedure Date: 07/03/2022 7:26 AM ? Patient Name: Jennifer Irving ? Date of : 1960 ? Age: 62 ? Order #: [id number] ? Instrument Name: [id number] ? Procedure: ? Upper GI endoscopy Indications: [...] PROVATION 07/03/2022 7:26 AM EST Ana Gillespie SUPERINTENDENT MAIN[employer] GENERAL SURGICAL ORD ERABLES PROVATION documented in [...] CRNA) documented in this encounter Care Teams Sanding Machine Tender Automatic Relationship Specialty Start Date End Date Ana Gillespie APRN [address] [place] [address] PCP - General Family Medicine 02/03/19 documented as of this encounter
--- OUTSIDE RECORDS SUMMARY | 2024-05-19 20:39 | XMS_ITS | Encounter Summary ---
Author Organization [facility] [place] [address] Care Team Providers Care Editor School Photograph Name Role Phone Ana Gillespie VAUGHN Primary Care Provider [phone] Encounter Details Date Type Department Care Team (Late st Contact Info) Description 08/14/2022 Ancillary Procedure Radiology Library at [facility] [place] [phone] Social History Tobacco Use Types Packs/Day Years [...] 05/26/2024 1:10 PM EST [place] [address] Gavin Carrillo MD [facility] [place] [address] 06/05/2024 1:20 PM EST Office Visit Cardiology at [address] [address] Milagros Hernandez MD [facility] [place] [address] Scheduled Procedures Name Priority Associated [...] is for storage only. Ayo Serna MD [facility] FILM LIBRARY ORD ERABLES documented in this encounter Visit Diagnoses Not on filedocumented in this encounter Care Teams Editor School Photograph Relationship Specialty Start Date End Date Ana Gillespie APRN [address] [place] [address] PCP - General Family Medicine 02/03/19 documented as of this encounter
--- OUTSIDE RECORDS SUMMARY | 2024-05-19 20:39 | XMS_ITS | Encounter Summary ---
Author Organization [facility] Address [facility] [place] [address] Care Team Providers Care Local Truck Driver Name Role Phone Ana Gillespie VAUGHN Primary Care Provider [phone] Encounter Details Date Type Department Care Team (Late st Contact Info) Description 07/03/2022 8:30 AM EST - 07/03/2022 9:00 AM EST Surgery Gastroenterology at [facility] [place] [address] David Dejesus MD [facility] [place] [address] EGD WITH BIOPSY (WRVU 2.39) Social History [...] Care Everywhere. * EGD (Upper Endoscopy): Post-op (Danish) documented in this encounter Medications at Time [...] meter kit. 1 each 0 12/14/2014 Insulin [place], Disposable, (BD INSULIN PEN NEEDLE UF MINI) [...] for dosing. 15 mL 11 ??? Insulin [place], Disposable, (BD INSULIN PEN NEEDLE UF MINI) [...] 05/26/2024 1:10 PM EST [place] [address] Gavin Carrillo MD [facility] [place] [address] 06/05/2024 1:20 PM EST Office Visit Cardiology at [address] [phone] Milagros Hernandez MD [facility] [place] [address] Scheduled Procedures Name Priority Associated Diagnoses Date/Ti me EGD, UPPER GI ENDOSCOPY (WRV U 2.09) Peptic stricture of esophagus documented as of this encounter Procedures Procedure Name Priority Date/Time Associated Diagnosis Comments SURGICAL PATHOLOGY REPORT Routine 07/03/2022 9:02 AM EST SPECIMEN TO PATHOLOGY Routine 07/03/2022 9:02 AM EST SPECIMEN TO PATHOLOGY Routine 07/03/2022 9:02 AM EST Upper Gi Endoscopy, Biopsy ([id number]) 07/03/2022 8:39 AM EST Farrell's esophagus without dysplasia POCT GLUCOSE Routine 07/03/2022 7:37 AM EST UPPER GI ENDOSCOPY Routine 07/03/2022 7: 26 AM EST documented in this encounter Results * Surgical Pathology Report (07/03/2022 9:02 AM EST) Final Diagnosis [id number] ? Location: 4T; [facility]; A The signing pathologist has (i) [...] Note). Note: Immunostains for p53, CD31 and UHHLW260 were evaluated for final diagnosis. Electronically signed by: ?Chinmay Nguyen MD Verified: ??07/08/2022 16:29 ??Pathologist Performed at: ??-[facility] Dept. of Pathology, [place] [id number] Ict Project Manager: Vishal Gilliam MD, FCAP, ??CLIA Certificate: [id number] ADDITIONAL STUDIES Immunohistochemistry Studies: Formalin-fixed, paraffin-embedded tissue [...] note ? CD31 ? see note ? [id number] ? see note SPECIMEN(S) SUBMITTED A - [...] SPECIMEN PROCESSING ??pps 07/08/2022 4:29 PM EST [facility] GI Biopsy 07/03/2022 9:02 AM EST 07/03/2022 9:02 AM EST GI Biopsy 07/03/2022 9:02 AM EST 07/03/2022 9:02 AM EST David Dejesus MD PATHOLOGY/CYTOLOGY ORDERABLES [facility] [place] [address] [facility] [place] [address] * Specimen to Pathology (07/03/2022 9:02 AM EST) AP Specimen 07/03/2022 9:02 AM EST 07/03/2022 9:02 AM EST Narrative [facility] - 07/03/2022 9:02 AM EST Specimen requisition ordered. ??Separate Pathology report to follow David Dejesus MD PATHOLOGY/CYTOLOGY ORDERABLES Performing Organization Address [facility] Co de Phone Number [facility] [place] [address] * Specimen to Pathology (07/03/2022 9:02 AM EST) AP Specimen 07/03/2022 9:02 AM EST 07/03/2022 9:02 AM EST Narrative [facility] - 07/03/2022 9:02 AM EST Specimen requisition ordered. ??Separate Pathology report to follow David Dejesus MD PATHOLOGY/CYTOLOGY ORDERABLES Performing Organization Address [facility] Co de Phone Number [facility] [place] [address] * POCT Glucose (07/03/2022 7:37 AM EST) Glucose, POC 139 65 - 199 mg/dL [facility] Comment: Supplemental ranges: <140 mg/dL before meals <180 mg/dL all other times of the day Blood 07/03/2022 7:37 AM EST 07/03/2022 7:37 AM EST David Dejesus MD POINT OF CARE TEST ORDERABLES Performing Organization Address [facility] [place] [address] * UPPER GI ENDOSCOPY (07/03/2022 7:26 AM EST) UPPER GI ENDOSCOPY [facility] Endoscopy Procedure Date: 07/03/2022 7:26 AM ? Patient Name: Jennifer Irving ? Date of : 1960 ? Age: 62 ? Order #: [id number] ? Instrument Name: [id number] ? Procedure: ? Upper GI endoscopy Indications: [...] PROVATION 07/03/2022 7:26 AM EST Ana Gillespie CASINO BANKER GENERAL SURGICAL ORD ERABLES PROVATION documented in [...] CRNA) documented in this encounter Care Teams Local Truck Driver Relationship Specialty Start Date End Date Ana Gillespie APRN [address] [place] [address] PCP - General Family Medicine 02/03/19 documented as of this encounter
--- OUTSIDE RECORDS SUMMARY | 2024-05-19 20:39 | XMS_ITS | Encounter Summary ---
Author Organization [facility] Address [facility] [place] [address] Care Team Providers Care Electrician Apprentice Powerhouse Name Role Phone Ana Gillespie VAUHGN Primary Care Provider [phone] Encounter Details Date Type Department Care Team (Late st Contact Info) Description 08/12/2022 12:05 AM EDT Ancillary Procedure Radiology Library at [facility] [place] [phone] Social History Tobacco Use Types Packs/Day Years [...] 05/26/2024 1:10 PM EST [place] [phone] [facility] [place] [address] 06/05/2024 1:20 PM EST Office Visit Cardiology at [address] [phone] [facility] [place] [address] Scheduled Procedures Name Priority Associated Diagnoses Date/Ti [...] is for storage only. Ayo Serna MD [facility] FILM LIBRARY ORD ERABLES documented in this encounter Visit Diagnoses Not on filedocumented in this encounter Care Teams Electrician Apprentice Powerhouse Relationship Specialty Start Date End Date Ana Gillespie APRN [address] [place] [address] PCP - General Family Medicine 02/03/19 documented as of this encounter
--- OUTSIDE RECORDS SUMMARY | 2024-05-19 20:39 | XMS_ITS | Encounter Summary ---
Author Organization [facility] Address [facility] [place] [address] Care Team Providers Care Production Shift Supervisor Name Role Phone Ana Gillespie APRN Primary Care Provider [phone] Encounter Details Date Type Department Care Team (Latest Contact Info) Description 08/14/2022 9:30 PM EDT - 08/14/2022 11:10 PM EDT Hospital Encounter [place] [phone] Carlos Terry MD [facility] [place] [address] Discharge Disposition: Home Social History Tobacco Use [...] meter kit. 1 each 0 12/14/2014 Insulin [place], Disposable, (BD INSULIN PEN NEEDLE UF MINI) [...] 05/26/2024 1:10 PM EST [place] [address] Gavin Carrillo MD [facility] [place] [address] 06/05/2024 1:20 PM EST Office Visit Cardiology at [address] [address] Milagros Hernandez MD [facility] [place] [address] Scheduled Procedures Name Priority Associated Diagnoses Date/Ti me EGD, UPPER GI ENDOSCOPY (WRV U 2.09) Peptic stricture of esophagus documented as of this encounter Visit Diagnoses Not on filedocumented in this encounter Care Teams Production Shift Supervisor Relationship Specialty Start Date End Date Ana Gillespie APRN [address] [place] [address] PCP - General Family Medicine 02/03/19 documented as of this encounter
--- OUTSIDE RECORDS SUMMARY | 2024-05-19 20:39 | XMS_ITS | Encounter Summary ---
Author Organization [facility] [place] [address] Care Team Providers Care Head Cook Name Role Phone Jose Miguel Ana MOTOR VEHICLE DISPATCHER Primary Care Provider [phone] Encounter Details Date Type Department Care Team (Late st Contact Info) Description 08/09/2022 Ancillary Procedure Radiology Library at [facility] [place] [id number] Ana Gillespie APRN [address] [place] [address] Social History Tobacco Use Types [...] 05/26/2024 1:10 PM [place] [phone] Gavin Carrillo MD [facility] [place] [address] 06/05/2024 1:20 PM EST Office Visit Cardiology at [address] [phone] Milagros Hernandez MD [facility] [place] [address] Scheduled Procedures Name Priority Associated Diagnoses Date/Ti me EGD, UPPER GI ENDOSCOPY (WRV U 2.09) Peptic stricture of esophagus documented as of this encounter Procedures Procedure Name Priority Date/Time Associated Diagnosis Comments FILM LIBRARY FLUORO OR Q-[id number]-[id number] ONLY Routine 08/09/2022 12:00 AM EDT documented in this encounter Results * Film Library - Fluoro or C Arm Storage Only (08/09/2022 12:00 AM EDT) Narrative [facility] - 08/14/2022 6:05 PM EDT This exam is auto-finalizing. It's purpose is for storage only. Ana NAZARIO FILM LIBRARY ORD ERABLES [place], [place] documented in this encounter Visit Diagnoses Not on filedocumented in this encounter Care Teams Head Cook Relationship Specialty Start Date End Date Ana Gillespie APRN [address] [place] [address] PCP - General Family Medicine 02/03/19 documented as of this encounter
--- OUTSIDE RECORDS SUMMARY | 2024-05-19 20:39 | XMS_ITS | Encounter Summary ---
Author Organization [facility] [place] [address] Care Team Providers Care Third Helper Name Role Phone Ana Gillespie VAUGHN Primary Care Provider [phone] Encounter Details Date Type Department Care Team (Late st Contact Info) Description 08/13/2022 Ancillary Procedure Radiology Library at [facility] [place] [phone] Social History Tobacco Use Types Packs/Day Years [...] 05/26/2024 1:10 PM EST App[place] [address] Gavin Carrillo MD [facility] [place] [address] 06/05/2024 1:20 PM EST Office Visit Cardiology at [address] [phone] Milagros Hernandez MD [facility] [place] [address] Scheduled Procedures Name Priority Associated [...] is for storage only. Ayo Serna MD [facility] FILM LIBRARY ORD ERABLES documented in this encounter Visit Diagnoses Not on filedocumented in this encounter Care Teams Third Helper Relationship Specialty Start Date End Date Ana Gillespie APRN [address] [place] [address] PCP - General Family Medicine 02/03/19 documented as of this encounter
--- OUTSIDE RECORDS SUMMARY | 2024-05-19 20:39 | XMS_ITS | Encounter Summary ---
Author Organization [facility] Address [facility] [place] [address] Care Team Providers Care Manager Restaurant Name Role Phone Ana Gillespie APRN Primary Care Provider [phone] Encounter Details Date Type Department Care Team (Late st Contact Info) Description 06/23/2022 Telephone [place] [address] Ilene Sharma RN Social History [...] - 06/23/2022 8:01 AM EST Patient's , Cmapos Irving left a voicemail regarding Jennifer's scheduled [...] 05/26/2024 1:10 PM EST [place] [address] Gavin Carrillo MD [facility] INTERVENTION[place] [address] 06/05/2024 1:20 PM EST Office Visit Cardiology at [address] [address] Milagros Hernandez MD [facility] [place] [address] Scheduled Procedures Name Priority Associated Diagnoses Date/Ti [...] as of this encounter Care Teams Manager Restaurant Relationship Specialty Start Date End Date Ana Gillespie APRN [address] [place] [address] PCP - General Family Medicine 02/03/19 documented as of this encounter
--- OUTSIDE RECORDS SUMMARY | 2024-05-19 20:39 | XMS_ITS | Encounter Summary ---
Author Organization [facility] [place] [address] Care Team Providers Care Renal Dialysis Rn Name Role Phone Jose Miguel Ana ELECTROMEDICAL SERVICE ENGINEER Primary Care Provider [phone] Encounter Details Date Type Department Care Team (Late st Contact Info) Description 08/10/2022 Ancillary Procedure Radiology Library at [place] [phone] Ana Gillespie APRN [address] [place] [address] Social History Tobacco Use Types [...] 05/26/2024 1:10 PM EST [place] [phone] Gavin Carrillo MD [facility] [place] [address] 06/05/2024 1:20 PM EST Office Visit Cardiology at [address] [phone] Milagros Hernandez MD [facility] [place] [address] Scheduled Procedures Name Priority Associated Diagnoses Date/Ti me EGD, UPPER GI ENDOSCOPY (WRV U 2.09) Peptic stricture of esophagus documented as of this encounter Procedures Procedure Name Priority Date/Time Associated Diagnosis Comments FILM LIBRARY STORAGE ONLY DX HIP Routine 08/10/2022 12:00 AM EDT documented in this encounter Results * Film Library- Storage Only DX Hip (08/10/2022 12:00 AM EDT) Narrative [facility] - 08/14/2022 6:05 PM EDT This exam is auto-finalizing. It's purpose is for storage only. Ana Gillespie APRN [place] FILM LIBRARY ORD ERABLES [place], [place] documented in this encounter Visit Diagnoses Not on filedocumented in this encounter Care Teams Renal Dialysis Rn Relationship Specialty Start Date End Date Ana Gillespie APRN [address] [place] [address] PCP - General Family Medicine 02/03/19 documented as of this encounter
--- OUTSIDE RECORDS SUMMARY | 2024-05-19 20:39 | XMS_ITS | Encounter Summary ---
[place] [address] Care Team Providers Care Wrapper Cashier Name Role Phone Ana Gillespie VAUGHN Primary Care Provider [phone] Reason for Referral * Diagnostic Test (Routine) - Closed Specialty Diagnoses / Procedures Referred By Contac t Referred To Contact Cardiology Diagnoses Sepsis, due to unspecified organism, unspecified whether acute organ dysfunction present Procedures Mobile Sergey Chaparro MD [address] [place] [address] [facility] [place] [address] Referral ID Status Reason Start Date Expiration Date V isits Requested Visits Authorized [id number] Closed Specialty Service Requested 08/14/2022 08/14/2023 1 1 Reason for Visit * Diagnostic Test (Routine) - Closed Specialty Diagnoses / Procedures Referred By Contac t Referred To Contact Cardiology Diagnoses Sepsis, due to unspecified organism, unspecified whether acute organ dysfunction present Procedures Mobile Sergey Chaparro MD [address] [place] [address] [facility] [place] [address] Referral ID Status Reason Start Date Expiration Date V isits Requested Visits Authorized [id number] Closed Specialty Service Requested 08/14/2022 08/14/2023 1 1 Encounter Details Date Type Department Care Team (Late st Contact Info) Description 08/14/2022 3:35 PM EDT - 08/14/2022 9:29 PM EDT Hospital Encounter Mobile Echocardiography [facility] [place] [address] Sergey Ayala MD [facility] [place] [address] Sepsis, due to unspecified organism, unspecified whether [...] strips. 300 each 3 12/14/2014 Blood-Glucose Meter (SymcatUCH ULTRA2) KitIndications:Type 2 diabetes mellitus, uncontrolled by Other route. 1 = one blood glucose meter kit. 1 each 0 12/14/2014 Insulin [place], Disposable, (BD INSULIN PEN NEEDLE UF MINI) [...] 05/26/2024 1:10 PM EST App[place] [address] Gavin Carrillo MD [facility] [place] [address] 06/05/2024 1:20 PM EST Office Visit Cardiology at [address] [phone] Milagros Hernandez MD [facility] [place] [address] Scheduled Procedures Name Priority Associated [...] 1960 ? Height: 152 cm ? Account: [id number] Age: 62 yrs ? Weight: 69 kg Gender: Female ?BSA: 1.7 m2 Ordering Physician: SERGEY AYALA Referring Physician: SERGEY AYALA Performed By: MARGAUX Reason For Study: Sepsis Exam Location: [facility]. Interpretation Summary 1. Left ventricular [...] 4. No pericardial effusion No prior Procedure Complete-79511. Suboptimal quality. Left Ventricle Left ventricle is [...] Date:08/14/2022 01:47 PMBP: 115/77 mmHg Patient Location: [facility]^24^A : 1960 Height: 152 cm Account: [id number] Age: 62 yrs Weight: 69 kg Gender: Female BSA: 1.7 m2 Ordering Physician: SERGEY AYALA Referring Physician: SERGEY AYALA Performed By: MARGAUX Reason For Study: Sepsis Exam Location: [facility]. Interpretation Summary 1. Left ventricular [...] 4. No pericardial effusion No prior Procedure Complete-[id number]. Suboptimal quality. Left Ventricle Left ventricle is [...] present documented in this encounter Care Teams Wrapper Cashier Relationship Specialty Start Date End Date Ana Gillespie APRN [address] [place] [address] PCP - General Family Medicine 02/03/19 documented as of this encounter
--- OUTSIDE RECORDS SUMMARY | 2024-05-19 20:39 | XMS_ITS | Encounter Summary ---
Author Organization [facility] Address [facility] [place] [address] Care Team Providers Care Hourly Team Members Name Role Phone Ana Gillespie VAUGHN Primary Care Provider [phone] Encounter Details Date Type Department Care Team (Late st Contact Info) Description 08/24/2022 Orders Only Endocrinology at [place] [phone] Chace Carrera O, DO Social History Tobacco Use Types Packs/Day Years [...] 05/26/2024 1:10 PM EST [place] [address] Gavin Carrillo MD [facility] [place] [address] 06/05/2024 1:20 PM EST Office Visit Cardiology at [address] [address] Milagros Hernandez MD [facility] [place] [address] Scheduled Procedures Name Priority Associated Diagnoses Date/Ti me EGD, UPPER GI ENDOSCOPY (WRV U 2.09) Peptic stricture of esophagus documented as of this encounter Visit Diagnoses Not on filedocumented in this encounter Care Teams Hourly Team Members Relationship Specialty Start Date End Date Ana Gillespie APRN [address] [place] [address] PCP - General Family Medicine 02/03/19 documented as of this encounter
--- OUTSIDE RECORDS SUMMARY | 2024-05-19 20:40 | XMS_ITS | Encounter Summary ---
Author Organization [facility] [place] [address] Care Team Providers Care Transfer Engineer Name Role Phone Ana Gillespie VAUGHN Primary Care Provider [phone] Encounter Details Date Type Department Care Team (Late st Contact Info) Description 07/14/2021 Telephone [place] [address] Chiquita James, RN Social History [...] 05/26/2024 1:10 PM EST Appointment [place] [address] Gavin Carrillo MD [facility] DR [place] [address] 06/05/2024 1:20 PM EST Office Visit Cardiology at [address] [address] Milagros Hernandez MD [facility] [place] [address] Scheduled Procedures Name Priority Associated Diagnoses Date/Ti me EGD, UPPER GI ENDOSCOPY (WRV U 2.09) Peptic stricture of esophagus documented as of this encounter Visit Diagnoses Not on filedocumented in this encounter Care Teams Transfer Engineer Relationship Specialty Start Date End Date Ana Gillespie APRN [address] [place] [address] PCP - General Family Medicine 02/03/19 documented as of this encounter
--- OUTSIDE RECORDS SUMMARY | 2024-05-19 20:40 | XMS_ITS | Encounter Summary ---
Author Organization [facility] Address [facility] [place] [address] Care Team Providers Care Commercial Attorney Name Role Phone Ana Gillespie VAUGHN Primary Care Provider [phone] Encounter Details Date Type Department Care Team (Late st Contact Info) Description 11/27/2021 Telephone Gastroenterology at [place] [phone] Alla Mejia Social History Tobacco Use Types [...] 05/26/2024 1:10 PM EST Appointment Radiology at [place] [phone] Gavin Carrillo MD [facility] [place] [address] 06/05/2024 1:20 PM EST Office Visit Cardiology at [address] [address] Milagros Hernandez MD [facility] [place] [address] Scheduled Procedures Name Priority Associated Diagnoses Date/Ti me EGD, UPPER GI ENDOSCOPY (WRV U 2.09) Peptic stricture of esophagus documented as of this encounter Visit Diagnoses Not on filedocumented in this encounter Care Teams Commercial Attorney Relationship Specialty Start Date End Date Ana Gillespie APRN [address] [place] [address] PCP - General Family Medicine 02/03/19 documented as of this encounter
--- OUTSIDE RECORDS SUMMARY | 2024-05-19 20:40 | XMS_ITS | Encounter Summary ---
Author Organization [facility] [place] [address] Care Team Providers Care Behavioral Modification Assistant Name Role Phone Ana Gillespie APRN Primary Care Provider [phone] Reason for Visit * Reason Onset Date Comments Medication Refill 10/20/2021 Encounter Details Date Type Department Care Team (Late st Contact Info) Description 10/20/2021 Refill [place] [phone] David Dejesus MD [facility] GASTROENTEROLOGY [place], [place] [phone] Gastroesophageal reflux disease with esophagitis without hemorrhage [...] 05/26/2024 1:10 PM EST [place] [address] Gavin Carrillo MD [facility] INTERVENTIONAL RADIOLOGY [place], [place] [address] 06/05/2024 1:20 PM EST Office Visit Cardiology at [address] [address] Milagros Hernandez MD [facility] [place] [place] [address] Scheduled Procedures Name Priority Associated Diagnoses Date/Ti me EGD, UPPER GI ENDOSCOPY (WRV U 2.09) Peptic stricture of esophagus documented as of this encounter Visit Diagnoses Diagnosis Gastroesophageal reflux disease with esophagitis without hemorrhage documented in this encounter Care Teams Behavioral Modification Assistant Relationship Specialty Start Date End Date Ana Gillespie APRN [address] [place] [address] PCP - General Family Medicine 02/03/19 documented as of this encounter
--- OUTSIDE RECORDS SUMMARY | 2024-05-19 20:40 | XMS_ITS | Encounter Summary ---
Author Organization [facility] Address [facility] [place] [address] Care Team Providers Care Senior It Engineer Name Role Phone Ana Gillespie VAUGHN Primary Care Provider [phone] Reason for Visit * Consultation (Routine) - Closed Specialty Diagnoses / Procedures Referred By Esperanza rodríguez Referred To Contact Neurology Diagnoses Primary parkinsonism David Dejesus MD [facility] [place] [address] [facility] Neurology [address] [place] [address] Referral ID Status Reason Start Date Expiration Date V isits Requested Visits Authorized [id number] Closed Consult, Test & Treat 09/23/2021 09/23/2022 1 1 Encounter Details Date Type Department Care Team (Late st Contact Info) Description 02/12/2022 11:00 AM EDT [place] [address] Alfonso Rose MD [facility] [place] [address] Neuroleptic-induced parkinsonism Social History Tobacco [...] Jennifer Irving Provider: Alfonso Rose MD PhD ([id number]) Vis: February 12, 2022 Requesting Physician: David Dejesus Reason for consultation: Concern about Parkisnon's Patient ID: Jennifer Irvign is a 61 y.o. year old RH [...] BX performed by David Dejesus MD at [facility] ENDOSCOPY ??? PRO COLONOSCOPY, DIAGNOSTIC N/A 03/01/2020 COLONOSCOPY, DIAGNOSTIC performed by David Dejesus MD at [facility] ENDOSCOPY ??? PRO UPPER GI ENDOSCOPY, BIOPSY N/A 04/03/2014 UPPER GASTROINTESTINAL ENDOSCOPY,WITH BIOPSY SINGLE OR MULTIPLE performed by David Dejesus MDat [facility] ENDOSCOPY ??? PRO UPPER GI ENDOSCOPY, BIOPSY N/A 03/20/2016 EGD WITH BIOPSY performed by David Dejesus MD at [facility] ENDOSCOPY ??? PRO UPPER GI ENDOSCOPY, BIOPSY N/A 11/22/2018 EGD WITH BIOPSY (WRVU 2.49) performed by David Dejesus MD at [facility] ENDOSCOPY ??? PRO UPPER GI ENDOSCOPY, BIOPSY N/A 03/01/2020 UPPER GASTROINTESTINAL ENDOSCOPY,WITH BIOPSY SINGLE OR MULTIPLE (WRVU 2.49) performed by David Dejesus MD at [facility] ENDOSCOPY ??? PRO UPPER GI ENDOSCOPY, BIOPSY N/A 09/23/2021 EGD WITH BIOPSY (WRVU 2.49) performed by David Dejesus MD at [facility] ENDOSCOPY ??? PRO UPPER GI ENDOSCOPY, DIAGNOSTIC N/A 04/03/2014 EGD, UPPER GI ENDOSCOPY performed by David Dejesus MD at [facility] ENDOSCOPY ??? PRO UPPER GI ENDOSCOPY, DIAGNOSTIC N/A 03/01/2020 EGD, UPPER GI ENDOSCOPY performed by David Dejesus MD at [facility] ENDOSCOPY Social History Social History Socioeconomic [...] for dosing. 15 mL 11 ??? Insulin Pickrell, Disposable, (BD INSULIN PEN NEEDLE UF MINI) [...] Coordination: ?? Finger to nose: intact ?? Dnxo-hafe-newl: intact ?? Tandem: intact ?? Gait: ?? [...] in this encounter. Alfonso Rose MD PhD [facility] Neurology documented in this encounter Miscellaneous Notes [...] 05/26/2024 1:10 PM EST Appointment Radiology at [address] Gavin Carrillo MD [facility] [address] INTERVENTION[place] [address] 06/05/2024 1:20 PM EST Office [place] [address] Milagros Hernandez MD [facility] [address] Scheduled Procedures Name Priority Associated Diagnoses Date/Ti me EGD, UPPER GI ENDOSCOPY (WRV U 2.09) Peptic stricture of esophagus Scheduled Referrals Name Type Priority Associated Diagnoses Orde r Schedule Referral to Neurology Outpatient Referral Routine Primary Parkinsonism Ordered: 09/23/2021 documented as of this encounter Visit Diagnoses Diagnosis Neuroleptic-induced parkinsonism Secondary Parkinsonism documented in this encounter Care Teams Senior It Engineer Relationship Specialty Start Date End Date Ana Gillespie APRN [address] [place] [address] PCP - General Family Medicine 02/03/19 documented as of this encounter
--- OUTSIDE RECORDS SUMMARY | 2024-05-19 20:40 | XMS_ITS | Encounter Summary ---
Author Organization [facility] Address [facility] [place] [address] Care Team Providers Care Medical Billing Specialist Name Role Phone Ana Gillespie VAUGHN Primary Care Provider [phone] Encounter Details Date Type Department Care Team (Latest Contact Info) Description 05/21/2022 2:30 PM EST TH Visit (TeleHealth) [place] [address] Alfonso Rose MD [facility] [place] [address] Neuroleptic-induced parkinsonism Social History Tobacco Use Types [...] us on an as-needed basis. This was [id number] call with greater than 10 minutes spent in counseling discussion regarding the above assessment and plan, with additional 10 minutes in review of the medical record. documented in this encounter Plan of Treatment Upcoming Encounters Date Type Department Care Team (Late st Contact Info) Description 05/26/2024 1:10 PM [place] [phone] Gavin Carrillo MD [facility] [place] [address] 06/05/2024 1:20 PM EST Office Visit Cardiology at [address] [phone] Milagros Hernandez MD [facility] [place] [address] Scheduled Procedures Name Priority Associated Diagnoses Date/Ti me EGD, UPPER GI ENDOSCOPY (WRV U 2.09) Peptic stricture of esophagus documented as of this encounter Visit Diagnoses Diagnosis Neuroleptic-induced parkinsonism Secondary Parkinsonism documented in this encounter Care Teams Medical Billing Specialist Relationship Specialty Start Date End Date Ana Gillespie APRN [address] [place] [address] PCP - General Family Medicine 02/03/19 documented as of this encounter
--- OUTSIDE RECORDS SUMMARY | 2024-05-19 20:40 | XMS_ITS | Encounter Summary ---
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 Social History Tobacco [...] 1:10 PM EST Appointment [place] [address] Gavin Carrillo MD [facility] [place] [address] 06/05/2024 1:20 PM EST Office Visit Cardiology at [address] [address] Milagros Hernandez MD [facility] [place] [place] [address] Scheduled Procedures Name Priority Associated Diagnoses Date/Ti me EGD, UPPER GI ENDOSCOPY (WRV U 2.09) Peptic stricture of esophagus documented as of this encounter Visit Diagnoses Diagnosis 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
--- OUTSIDE RECORDS SUMMARY | 2024-05-19 20:40 | XMS_ITS | Encounter Summary ---
[place] [address] Care Team Providers Care Second Hand Paper Machine Name Role Phone Ana Gillespie VAUGHN Primary Care Provider [phone] Reason for Visit * Reason Onset Date Comments Prior Authorization 09/18/2020 Encounter Details Date Type Department Care Team (Late st Contact Info) Description 09/18/2020 Telephone [place] [address] Francoise Vides CMA Prior Authorization Social History Tobacco Use Types [...] Prior Authorization 4L Gastroenterology / [place] [address] ?? Subscriber Insurance: [place] Medicaid ?? Phone: . Fax: ? Physician: David Dejesus ? Return ?? Pharmacy: [facility] ? Medication Requested: pantoprazole ?? Strength: 40 mg Frequency: BID ?? Disp.: 180 Refills: 3 ?? Currently taking: n Diagnosis for this medication: Farrell's w/ dysplasia, and GERD ?? ICD-10 code: ?? Prior medications trialed in this patient: Pantoprazole QD, esomperazole, and omeprazole,tums,zantac ? Medication: Outcome/Adverse Reactions: treatment failure ?? Decision: approved Start:09/18/20 End: 09/18/21 ?? Tracking number/Case number/Reference number: [id number] ? documented in this encounter Plan of Treatment Upcoming Encounters Date Type Department Care Team (Late st Contact Info) Description 05/26/2024 1:10 PM EST [place] [phone] Gavin Carrillo MD [facility] [place] [address] 06/05/2024 1:20 PM EST Office Visit Cardiology at [address] [address] Milagros Hernandez MD [facility] [place] [address] Scheduled Procedures Name Priority Associated Diagnoses Date/Ti me EGD, UPPER GI ENDOSCOPY (WRV U 2.09) Peptic stricture of esophagus documented as of this encounter Visit Diagnoses Not on filedocumented in this encounter Care Teams Second Hand Paper Machine Relationship Specialty Start Date End Date Ana Gillespie APRN [address] [place] [address] PCP - General Family Medicine 02/03/19 documented as of this encounter
--- OUTSIDE RECORDS SUMMARY | 2024-05-19 20:40 | XMS_ITS | Encounter Summary ---
Author Organization [facility] [place] [address] Care Team Providers Care Pipe Covering Molder Name Role Phone Ana Gillespie VAUGHN Primary Care Provider [phone] Encounter Details Date Type Department Care Team (Late st Contact Info) Description 11/24/2021 Telephone [place] [address] Chiquita James, RN Social History [...] 1:10 PM EST Appoint[place] [address] Gavin Carrillo MD [facility] INTERVENTION[place] [address] 06/05/2024 1:20 PM EST Office Visit Cardiology at [address] [address] Milagros Hernandez MD [facility] [place] [address] Scheduled Procedures Name Priority Associated Diagnoses Date/Ti me EGD, UPPER GI ENDOSCOPY (WRV U 2.09) Peptic stricture of esophagus documented as of this encounter Visit Diagnoses Not on filedocumented in this encounter Care Teams Pipe Covering Molder Relationship Specialty Start Date End Date Ana Gillespie APRN [address] [place] [address] PCP - General Family Medicine 02/03/19 documented as of this encounter
--- OUTSIDE RECORDS SUMMARY | 2024-05-19 20:40 | XMS_ITS | Encounter Summary ---
Author Organization [facility] [place] [address] Care Team Providers Care Supervisor Display Fabrication Name Role Phone Ana Gillespie TREATING MACHINE OPERATOR Primary Care Provider Encounter Details Date Type Department Care Team (Late st Contact Info) Description 10/27/2021 Orders Only Gastroenterology at [place] [phone] David Dejesus MD [facility] [place] [address] Gastroesophageal reflux disease with esophagitis without hemorrhage [...] 05/26/2024 1:10 PM EST [place]oint[place] [address] Gavin Carrillo MD [facility] [place] [address] 06/05/2024 1:20 PM EST Office Visit Cardiology at [address] [address] Milagros Hernandez MD [facility] [place] [address] Scheduled Procedures Name Priority Associated Diagnoses Date/Ti me EGD, UPPER GI ENDOSCOPY (WRV U 2.09) Peptic stricture of esophagus documented as of this encounter Visit Diagnoses Diagnosis Gastroesophageal reflux disease with esophagitis without hemorrhage documented in this encounter Care Teams Supervisor Display Fabrication Relationship Specialty Start Date End Date Ana Gillespie APRN [address] [place] [address] PCP - General Family Medicine 02/03/19 documented as of this encounter
--- OUTSIDE RECORDS SUMMARY | 2024-05-19 20:40 | XMS_ITS | Encounter Summary ---
Author Organization [facility] [place] [address] Care Team Providers Care Director Of Cardiac Rehabilitation Name Role Phone Ana Gillespie APRN Primary Care Provider [phone] Encounter Details Date Type Department Care Team (Late st Contact Info) Description 09/09/2021 11:59 PM EDT Anesthesia [place] [phone] Bel Villanueva MD [facility] [place] [address] Parris Steinberg CRNA [facility] [place] [address] Anesthesia Record Procedure Summary Procedure Name Responsible Anesthesiologist Anesthesia Start Time Anesthesia Stop Time EGD, UPPER GI ENDOSCOPY (WRVU 2.09) (Trunk) Events No events on file. Meds * Agents No agents on file. * Blood No blood administrations on file. Lines, Drains, and Airways Type Details Placement Removal Enterostomy Tube 03/10/23; 1618; jaocb rostomy tube with balloon (16F); LUQ (left [...] by David Dejesus MD at [facility] ENDOSCOPY ??? PRO COLONOSCOPY, DIAGNOSTIC N/A 03/01/2020 COLONOSCOPY, DIAGNOSTIC performed by David Dejesus MD at [facility] ENDOSCOPY ??? PRO UPPER GI ENDOSCOPY, BIOPSY N/A 04/03/2014 UPPER GASTROINTESTINAL ENDOSCOPY,WITH BIOPSY SINGLE OR MULTIPLE performed by David Dejesus MDat [facility] ENDOSCOPY ??? PRO UPPER GI ENDOSCOPY, BIOPSY N/A 03/20/2016 EGD WITH BIOPSY performed by David Dejesus MD at [facility] ENDOSCOPY ??? PRO UPPER GI ENDOSCOPY, BIOPSY N/A 11/22/2018 EGD WITH BIOPSY (WRVU 2.49) performed by David Dejesus MD at [facility] ENDOSCOPY ??? PRO UPPER GI ENDOSCOPY, BIOPSY N/A 03/01/2020 UPPER GASTROINTESTINAL ENDOSCOPY,WITH BIOPSY SINGLE OR MULTIPLE (WRVU 2.49) performed by David Dejesus MD at [facility] ENDOSCOPY ??? PRO UPPER GI ENDOSCOPY, DIAGNOSTIC N/A 04/03/2014 EGD, UPPER GI ENDOSCOPY performed by David Dejesus MD at [facility] ENDOSCOPY ??? PRO UPPER GI ENDOSCOPY, DIAGNOSTIC N/A 03/01/2020 EGD, UPPER GI ENDOSCOPY performed by David Dejesus MD at [facility] ENDOSCOPY Social History Tobacco Use [...] risks discussed with patient. Plan discussed with GRADUATION COACH. Anesthesia Screening documented in this encounter Plan of Treatment Upcoming Encounters Date Type Department Care Team (Late st Contact Info) Description 05/26/2024 1:10 PM [place] [phone] Gavin Carrillo MD [facility] [place] [address] 06/05/2024 1:20 PM EST Office Visit Cardiology at [address] [address] Milagros Hernandez MD [facility] [place] [address] Scheduled Procedures Name Priority Associated Diagnoses Date/Ti me EGD, UPPER GI ENDOSCOPY (WRV U 2.09) Peptic stricture of esophagus documented as of this encounter Visit Diagnoses Not on filedocumented in this encounter Care Teams Director Of Cardiac Rehabilitation Relationship Specialty Start Date End Date Ana Gillespie APRN [address] [place] [address] PCP - General Family Medicine 02/03/19 documented as of this encounter
--- OUTSIDE RECORDS SUMMARY | 2024-05-19 20:40 | XMS_ITS | Encounter Summary ---
Author Organization [facility] [place] [address] Care Team Providers Care Room Service Manager Name Role Phone Ana Gillespie APRN Primary Care Provider [phone] Encounter Details Date Type Department Care Team (Late st Contact Info) Description 12/01/2021 Telephone [place] [phone] Alla Mejia Social History Tobacco Use Types [...] - 12/01/2021 4:07 PM EDT Jennifer Irving [id number] Diagnosis/Indication: folow-up esophagitis Please review patient chart [...] No 18. You must have a responsible democrat who will drive you to your procedure, stay on campus for the entire duration of your procedure, and drive you home from your procedure. Who will likely be your cement truck driver for the procedure? *Please Verify [...] 05/26/2024 1:10 PM EST [place] [address] Gavin Carrillo MD [facility] [place] [address] 06/05/2024 1:20 PM EST Office Visit Cardiology at [address] [address] Milagros Hernandez MD [facility] [place] [address] Scheduled Procedures Name Priority Associated Diagnoses Date/Ti me EGD, UPPER GI ENDOSCOPY (WRV U 2.09) Peptic stricture of esophagus documented as of this encounter Visit Diagnoses Not on filedocumented in this encounter Care Teams Room Service Manager Relationship Specialty Start Date End Date Ana Gillespie APRN [address] [place] [address] PCP - General Family Medicine 02/03/19 documented as of this encounter
--- OUTSIDE RECORDS SUMMARY | 2024-05-19 20:40 | XMS_ITS | Encounter Summary ---
Author Organization [facility] [place] [address] Care Team Providers Care Sales Expert Name Role Phone Ana Gillespie APRN Primary Care Provider [phone] Encounter Details Date Type Department Care Team (Late st Contact Info) Description 08/04/2021 Orders [place] [phone] David Dejesus MD [facility] [place] [address] Social History Tobacco Use Types Packs/Day Years [...] 05/26/2024 1:10 PM EST [place] [address] Gavin Carrillo MD [facility] [place] [address] 06/05/2024 1:20 PM EST Office Visit Cardiology at [address] [address] Milagros Hernandez MD [facility] [address] Scheduled Procedures Name Priority Associated Diagnoses Date/Ti me EGD, UPPER GI ENDOSCOPY (WRV U 2.09) Peptic stricture of esophagus documented as of this encounter Visit Diagnoses Not on filedocumented in this encounter Care Teams Sales Expert Relationship Specialty Start Date End Date Ana Gillespie APRN [address] [place] [address] PCP - General Family Medicine 02/03/19 documented as of this encounter
--- OUTSIDE RECORDS SUMMARY | 2024-05-19 20:40 | XMS_ITS | Encounter Summary ---
Author Organization [facility] Address [facility] [place] [address] Care Team Providers Care Rn Medication Name Role Phone Ana Gillespie VAUGHN Primary Care Provider [phone] Encounter Details Date Type Department Care Team (Late st Contact Info) Description 11/25/2021 Telephone Gastroenterology at [place] [phone] Alla Mejia Social History Tobacco Use Types [...] 05/26/2024 1:10 PM EST Appointment Radiology at [place] [phone] Gavin Carrillo MD [facility] [place] [address] 06/05/2024 1:20 PM EST Office Visit Cardiology at [address] [address] Milagros Hernandez MD [facility] [place] [address] Scheduled Procedures Name Priority Associated Diagnoses Date/Ti me EGD, UPPER GI ENDOSCOPY (WRV U 2.09) Peptic stricture of esophagus documented as of this encounter Visit Diagnoses Not on filedocumented in this encounter Care Teams Rn Medication Relationship Specialty Start Date End Date Ana Gillespie APRN [address] [place] [address] PCP - General Family Medicine 02/03/19 documented as of this encounter
--- OUTSIDE RECORDS SUMMARY | 2024-05-19 20:40 | XMS_ITS | Encounter Summary ---
Author Organization [facility] [place] [address] Care Team Providers Care Brazing Machine Operator Name Role Phone Ana Gillespie APRN Primary Care Provider [phone] Encounter Details Date Type Department Care Team (Late st Contact Info) Description 09/23/2021 12:02 PM EDT Anesthesia Event [place] [address] Keyana Short MD [facility] [place] [address] Kyaw Yusuf CRNA [facility] [place] [address] Anesthesia Record Procedure Summary Procedure Name Responsible [...] 1131; median cubital vein (antecubital fossa), right; oeds-wph-xzfesr catheter system; 20 gauge; Lilliana HWANG; tolerated [...] Procedure Summary Date: 09/23/21 Room / Location: [facility] / [facility] Anesthesia Start: 1202 Anesthesia Stop: 1224 Procedure: EGD WITH BIOPSY (WRVU 2.49) (N/A Trunk) Diagnosis: Gastroesophageal reflux disease with esophagitis without hemorrhage (esophagitis - please schedule in mid August) Surgeons: David Dejesus MD Responsible Provider: Keyana Short MD Anesthesia Type: MAC ASA Status: 3 All Anesthesia Providers: Anesthesiologist: Keyana Short MD BAND CUTTER: Kyaw Yusuf CRNA Vitals Value Taken Time BP 139/82 09/23/21 1310 Temp Pulse Resp 18 09/23/21 1310 SpO2 100 % 09/23/21 1315 Pain Level 0 09/23/21 1310 Vitals shown include unvalidated device data. Patient Location: PACU/[facility] Level of Consciousness: Awake and Alert [...] risks discussed with patient. Plan discussed with BAND CUTTER. Anesthesia Screening documented in this encounter Plan of Treatment Upcoming Encounters Date Type Department Care Team (Late st Contact Info) Description 05/26/2024 1:10 PM EST Appointment [place] [phone] Gavin Carrillo MD [facility] [place] [address] 06/05/2024 1:20 PM EST Office Visit Cardiology at [address] [address] Milagros Hernandez MD [facility] [place] [address] Scheduled Procedures Name Priority Associated Diagnoses Date/Ti [...] mg documented in this encounter Care Teams Brazing Machine Operator Relationship Specialty Start Date End Date Ana Gillespie APRN [address] [place] [address] PCP - General Family Medicine 02/03/19 documented as of this encounter
--- OUTSIDE RECORDS SUMMARY | 2024-05-19 20:40 | XMS_ITS | Encounter Summary ---
[place] [address] Care Team Providers Care Hr Operations Advisor Name Role Phone Ana Gillespie APRN Primary Care Provider [phone] Encounter Details Date Type Department Care Team (Late st Contact Info) Description 12/26/2021 Telephone [place] [address] Rober Tobin Social History Tobacco [...] Return calls can be handled by: Endoscopy Crop Roller [phone] documented in this encounter Plan of Treatment Upcoming Encounters Date Type Department Care Team (Late st Contact Info) Description 05/26/2024 1:10 PM EST Appoint[place] [address] Gavin Carrillo MD [facility] [place] [address] 06/05/2024 1:20 PM EST Office Visit Cardiology at [address] [address] Milagros Hernandez MD [facility] [place] [address] Scheduled Procedures Name Priority Associated Diagnoses Date/Ti me EGD, UPPER GI ENDOSCOPY (WRV U 2.09) Peptic stricture of esophagus documented as of this encounter Visit Diagnoses Not on filedocumented in this encounter Care Teams Hr Operations Advisor Relationship Specialty Start Date End Date Ana Gillespie APRN [address] [place] [address] PCP - General Family Medicine 02/03/19 documented as of this encounter
--- OUTSIDE RECORDS SUMMARY | 2024-05-19 20:40 | XMS_ITS | Encounter Summary ---
Author Organization [facility] Address [facility] [place] [address] Care Team Providers Care Nitrate Operator Name Role Phone Ana Gillespie VAUGHN Primary Care Provider [phone] Encounter Details Date Type Department Care Team (Latest Contact Info) Description 03/31/2022 8:43 AM EST - 03/31/2022 11:10 AM EST Hospital Encounter Gastroenterology at [facility] [place] [address] David Dejesus MD [facility] [place] [address] Discharge Disposition: Home Social History Tobacco Use [...] the day after the procedure, use an bstc-qod-vgyvcek spray to numb your throat. Sucking on [...] occurs, please contact your Doctor. Please call [phone] before 8pm Mon-Fri with problems, questions or concerns. If you call after 8pm or on weekends, call the Hospital at [phone] and ask to speak to the Miner Operator marine consultant and the link machine operator will contact that person for you. When should you call for help? Call [phone] anytime you think you may need emergency [...] Summary and more online at [email or web address] If you would like to provide feedback about your hospital experience, please call the Office of Patient and Family Relations at . If you have received this After Visit Summary in error, please immediately return it in person to the department, or notify the [facility] Privacy Office by calling toll free at between the hours of 8AM and 5PM to arrange for our retrieval of the documents at no cost to you. Content Version: 12.2 ?? [phone] [employer]. Care instructions adapted under license by [facility]. If you have questions about a medical condition or this instruction, always ask your healthcare professional. [employer] disclaims any warranty or liability for your [...] meter kit. 1 each 0 12/14/2014 Insulin [place], Disposable, (BD INSULIN PEN NEEDLE UF MINI) 31 x 3/16 NeedleIndications:Di abetes mellitus type 2, uncontrolled 1 Device by [facility].(Non-Drug; Combo Route) route 3 times daily as [...] 1:10 PM EST App[place]ment [place] [address] Gavin Carrillo MD [facility] [place] [address] 06/05/2024 1:20 PM EST Office Visit Cardiology at [address] [address] Milagros Hernandez MD [facility] [place] [address] Scheduled Procedures Name Priority Associated Diagnoses Date/Ti [...] 10:21 AM EST Endoscopic Us Exam, Esoph ([id number]) 03/31/2022 9:59 AM EST Schedule EGD in two years Upper Gi Endoscopy, Biopsy ([id number]) 03/31/2022 9:59 AM EST Schedule EGD in [...] PATHOLOGY/CYTOLOGY ORDERABLES [facility] [place] [address] * Specimen to Pathology (03/31/2022 10:36 AM EST) AP Specimen 03/31/2022 10:3 6 AM EST 03/31/2022 10:36 AM EST Narrative [facility] - 03/31/2022 10:36 AM EST Specimen requisition ordered. ??Separate Pathology report to follow David Dejesus MD PATHOLOGY/CYTOLOGY ORDERABLES Performing Organization Address [facility] [place] [address] * Specimen to Pathology (03/31/2022 10:36 AM EST) AP Specimen 03/31/2022 10:3 6 AM EST 03/31/2022 10:36 AM EST Narrative [facility] - 03/31/2022 10:36 AM EST Specimen requisition ordered. ??Separate Pathology report to follow David Dejesus MD PATHOLOGY/CYTOLOGY ORDERABLES Performing Organization Address [facility] Co de Phone Number [facility] [place] [address] * Specimen to Pathology (03/31/2022 10:36 AM EST) AP Specimen 03/31/2022 10:3 6 AM EST 03/31/2022 10:36 AM EST Narrative [facility] - 03/31/2022 10:36 AM EST Specimen requisition ordered. ??Separate Pathology report to follow David Dejesus MD PATHOLOGY/CYTOLOGY ORDERABLES Performing Organization Address [facility] Co de Phone Number [facility] [place] [address] * Specimen to Pathology (03/31/2022 10:36 AM EST) AP Specimen 03/31/2022 10:3 6 AM EST 03/31/2022 10:36 AM EST Narrative [facility] - 03/31/2022 10:36 AM EST Specimen requisition ordered. ??Separate Pathology report to follow David Dejesus MD PATHOLOGY/CYTOLOGY ORDERABLES Performing Organization Address [facility] [place] [address] * Specimen to Pathology (03/31/2022 10:36 AM EST) AP Specimen 03/31/2022 10:3 6 AM EST 03/31/2022 10:36 AM EST Narrative [facility] - 03/31/2022 10:36 AM EST Specimen requisition ordered. ??Separate Pathology report to follow David Dejesus MD PATHOLOGY/CYTOLOGY ORDERABLES Performing Organization Address [facility] de Phone Number [place] [phone] * Specimen to Pathology (03/31/2022 10:36 AM EST) AP Specimen 03/31/2022 10:3 6 AM EST 03/31/2022 10:36 AM EST Narrative [facility] - 03/31/2022 10:36 AM EST Specimen requisition ordered. ??Separate Pathology report to follow David Dejesus MD PATHOLOGY/CYTOLOGY ORDERABLES Performing Organization Address [facility] Phone Number [place] [phone] * Surgical Pathology Report (03/31/2022 10:21 AM EST) Final Diagnosis [id number] ? Location: 4T; EA08; A The signing [...] Verified: ??04/09/2022 9:14 ?? Pathologist Performed at: ??-[facility] Dept. of Pathology, [place] [address] Dope Worker: Vishal Gilliam MD, FCAP, ??CLIA Certificate: [id number] SPECIMEN(S) SUBMITTED A - Esophagus at 30 [...] PATHOLOGY/CYTOLOGY ORDERABLES [facility] [place] [address] * UPPER GI ENDOSCOPY (03/31/2022 9:56 AM EST) UPPER GI ENDOSCOPY [facility] Endoscopy Procedure Date: 03/31/2022 9:56 AM ? Patient Name: Jennifer Irving ? Date of : 1960 ? Age: 61 ? Order #: [id number] ? Instrument Name: [id number] ? Procedure: ? Upper GI endoscopy Indications: [...] PROVATION 03/31/2022 9:56 AM EST Ana Gillespie [employer] GENERAL SURGICAL ORD ERABLES PROVATION * POCT Glucose (03/31/2022 9:18 AM EST) Glucose, POC 180 65 - 199 mg/dL [facility] Comment: Supplemental ranges: <140 mg/dL before meals <180 mg/dL all other times of the day Blood 03/31/2022 9:18 AM EST 03/31/2022 9:18 AM EST David Dejesus MD POINT OF CARE TEST ORDERABLES [facility] [place] [address] documented in this encounter Visit Diagnoses Not [...] CRNA) documented in this encounter Care Teams Nitrate Operator Relationship Specialty Start Date End Date Ana Gillespie APRN [address] [place] [address] PCP - General Family Medicine 02/03/19 documented as of this encounter
--- OUTSIDE RECORDS SUMMARY | 2024-05-19 20:40 | XMS_ITS | Encounter Summary ---
[place] [address] Care Team Providers Care Ski Technician Name Role Phone Ana Gillespie VAUGHN Primary Care Provider [phone] Encounter Details Date Type Department Care Team (Late st Contact Info) Description 11/20/2021 [place] [address] Chiquita James, RN Social History [...] states they have called multiple times to [phone], and been on hold upwards of 45 [...] 05/26/2024 1:10 PM [place] [address] Gavin Carrillo MD [facility] [place] [address] 06/05/2024 1:20 PM EST Office Visit Cardiology at [address] [phone] Milagros Hernandez MD [facility] [place] [address] Scheduled Procedures Name Priority Associated Diagnoses Date/Ti me EGD, UPPER GI ENDOSCOPY (WRV U 2.09) Peptic stricture of esophagus documented as of this encounter Visit Diagnoses Not on filedocumented in this encounter Care Teams Ski Technician Relationship Specialty Start Date End Date Ana Gillespie APRN [address] [place] [address] PCP - General Family Medicine 02/03/19 documented as of this encounter
--- OUTSIDE RECORDS SUMMARY | 2024-05-19 20:40 | XMS_ITS | Encounter Summary ---
Author Organization [facility] Address [facility] [place] [address] Care Team Providers Care Employment Consultant Name Role Phone Ana Gillespie APRN Primary Care Provider [phone] Reason for Visit * Reason Onset Date Comments Medication Refill 07/15/2021 Encounter Details Date Type Department Care Team (Late st Contact Info) Description 07/15/2021 [place] [address] David Dejesus MD [facility] [place] [address] Gastroesophageal reflux disease with esophagitis [...] 05/26/2024 1:10 PM EST [place] [address] Gavin Carrillo MD [facility] [place] [address] 06/05/2024 1:20 PM EST Office Visit Cardiology at [address] [address] Milagros Hernandez MD [facility] [place] [place] [address] Scheduled Procedures Name Priority Associated Diagnoses Date/Ti me EGD, UPPER GI ENDOSCOPY (WRV U 2.09) Peptic stricture of esophagus documented as of this encounter Visit Diagnoses Diagnosis Gastroesophageal reflux disease with esophagitis without hemorrhage documented in this encounter Care Teams Employment Consultant Relationship Specialty Start Date End Date Ana Gillespie APRN [address] [place] [address] PCP - General Family Medicine 02/03/19 documented as of this encounter
--- OUTSIDE RECORDS SUMMARY | 2024-05-19 20:40 | XMS_ITS | Encounter Summary ---
Author Organization [facility] [place] [address] Care Team Providers Care Display Fabricator Name Role Phone Ana Gillespie VAUGHN Primary Care Provider [phone] Encounter Details Date Type Department Care Team (Late st Contact Info) Description 09/12/2021 Telephone [place] [address] Chiquita James, RN Social History [...] 05/26/2024 1:10 PM EST [place] [address] Gavin Carrillo MD [facility] INTERVENTION[place] [address] 06/05/2024 1:20 PM EST Office Visit Cardiology at [address] [address] Milagros Hernandez MD [facility] [place] [address] Scheduled Procedures Name Priority Associated Diagnoses Date/Ti me EGD, UPPER GI ENDOSCOPY (WRV U 2.09) Peptic stricture of esophagus documented as of this encounter Visit Diagnoses Not on filedocumented in this encounter Care Teams Display Fabricator Relationship Specialty Start Date End Date Ana Gillespie APRN [address] [place] [address] PCP - General Family Medicine 02/03/19 documented as of this encounter
--- OUTSIDE RECORDS SUMMARY | 2024-05-19 20:40 | XMS_ITS | Encounter Summary ---
Author Organization [facility] Address [facility] [place] [address] Care Team Providers Care Advertising Intern Name Role Phone Ana Gillespie VAUGHN Primary Care Provider [phone] Encounter Details Date Type Department Care Team (Late st Contact Info) Description 03/31/2022 10:15 AM EST - 03/31/2022 10:45 AM EST Surgery Gastroenterology at [facility] [place] [address] David Dejesus MD [facility] [place] [address] EGD WITH BIOPSY (WRVU 2.39) Social History [...] the day after the procedure, use an bwmn-mmi-wzgnimt spray to numb your throat. Sucking on [...] occurs, please contact your Doctor. Please call [phone] before 8pm Mon-Fri with problems, questions or concerns. If you call after 8pm or on weekends, call the Hospital at [phone] and ask to speak to the Bank Representative manager of international and the catalyst operator chief will contact that person for you. When should you call for help? Call [phone] anytime you think you may need emergency [...] problems. Where can you learn more? [facility] View your After Visit Summary and more online at [email or web address] If you would like to [...] cost to you. Content Version: 12.2 ?? [id number] [employer]. Care instructions adapted under license by [facility]. If you have questions about a medical condition or this instruction, always ask your healthcare professional. [employer] disclaims any warranty or liability for [...] meter kit. 1 each 0 12/14/2014 Insulin [place], Disposable, (BD INSULIN PEN NEEDLE UF MINI) 31 x 3/16 NeedleIndications:Di abetes mellitus type 2, uncontrolled 1 Device by [facility] At [...] as of this encounter H&P Notes * rTell Wiseman MD - 03/31/2022 7:07 AM EST [...] 05/26/2024 1:10 PM [place] [address] Gavin Carrillo MD [facility] [place] [address] 06/05/2024 1:20 PM EST Office Visit Cardiology at [address] [address] Milagros Hernandez MD [facility] [place] [address] Scheduled Procedures Name Priority Associated Diagnoses Date/Ti [...] 10:21 AM EST Endoscopic Us Exam, Esoph ([id number]) 03/31/2022 9:59 AM EST Schedule EGD in two years Upper Gi Endoscopy, Biopsy ([id number]) 03/31/2022 9:59 AM EST Schedule EGD in two years UPPER GI ENDOSCOPY Routine 03/31/2022 9: 56 AM EST POCT GLUCOSE Routine 03/31/2022 9:18 AM EST documented in this encounter Results * Specimen to Pathology (03/31/2022 10:36 AM EST) AP Specimen 03/31/2022 10:3 6 AM EST 03/31/2022 10:[address] [facility] - 03/31/2022 10:36 AM EST Specimen requisition ordered. ??Separate Pathology report to follow David Dejesus MD PATHOLOGY/CYTOLOGY ORDERABLES [facility] [place] [address] * Specimen to Pathology (03/31/2022 10:36 AM EST) AP Specimen 03/31/2022 10:3 6 AM EST 03/31/2022 10:[address] [facility] - 03/31/2022 10:36 AM EST Specimen requisition ordered. ??Separate Pathology report to follow David Dejesus MD PATHOLOGY/CYTOLOGY ORDERABLES [facility] [place] [address] * Specimen to Pathology (03/31/2022 10:36 AM EST) AP Specimen 03/31/2022 10:3 6 AM EST 03/31/2022 10:[address] [facility] - 03/31/2022 10:36 AM EST Specimen requisition ordered. ??Separate Pathology report to follow David Dejesus MD PATHOLOGY/CYTOLOGY ORDERABLES Performing Organization Address City/[facility]/ZIP Co de Phone Number [facility] [place] [address] * Specimen to Pathology (03/31/2022 10:36 AM EST) AP Specimen 03/31/2022 10:3 6 AM EST 03/31/2022 10:[address] [facility] - 03/31/2022 10:36 AM EST Specimen requisition ordered. ??Separate Pathology report to follow David Dejesus MD PATHOLOGY/CYTOLOGY ORDERABLES Performing Organization Address City/[facility]/[place] [address] * Specimen to Pathology (03/31/2022 10:36 AM EST) AP Specimen 03/31/2022 10:3 6 AM EST 03/31/2022 10:[address] [facility] - 03/31/2022 10:36 AM EST Specimen requisition ordered. ??Separate Pathology report to follow David Dejesus MD PATHOLOGY/CYTOLOGY ORDERABLES Performing Organization Address [facility] [place] [address] * Specimen to Pathology (03/31/2022 10:36 AM EST) AP Specimen 03/31/2022 10:3 6 AM EST 03/31/2022 10:[address] [facility] - 03/31/2022 10:36 AM EST Specimen requisition ordered. ??Separate Pathology report to follow David Dejesus MD PATHOLOGY/CYTOLOGY ORDERABLES Performing Organization Address [facility] [place] [address] * Specimen to Pathology (03/31/2022 10:36 AM EST) AP Specimen 03/31/2022 10:3 6 AM EST 03/31/2022 10:[address] [facility] - 03/31/2022 10:36 AM EST Specimen requisition ordered. ??Separate Pathology report to follow David Dejesus MD PATHOLOGY/CYTOLOGY ORDERABLES Performing Organization Address [facility] [place] [address] * Surgical Pathology Report (03/31/2022 10:21 AM EST) Final Diagnosis [id number] ? Location: 4T; EA08; A The signing [...] Verified: ??04/09/2022 9:14 ?? Pathologist Performed at: ??-[facility] Dept. of Pathology, [place] [address] Superintendent Meter Tests: Vishal Gilliam MD, FCAP, ??CLIA Certificate: [id number] SPECIMEN(S) SUBMITTED A - Esophagus at 30 [...] labeled G1. ??sns 04/09/2022 9:[address] [facility] GI Biopsy 03/31/2022 10:2 1 [...] EST David Dejesus MD PATHOLOGY/CYTOLOGY ORDERABLES [facility] [place] [address] * UPPER GI ENDOSCOPY (03/31/2022 9:56 AM EST) Pathologist [facility] UPPER GI ENDOSCOPY [facility] Endoscopy Procedure Date: 03/31/2022 9:56 AM ? Patient Name: Jennifer Irving ? Date of : 1960 ? Age: 61 ? Order #: [id number] ? Instrument Name: [id number] ? Procedure: ? Upper GI endoscopy Indications: [...] PROVATION 03/31/2022 9:56 AM EST Ana Gillespie LOCK TENDER CHIEF OPERATOR GENERAL SURGICAL ORD ERABLES PROVATION * POCT Glucose (03/31/2022 9:18 AM EST) Glucose, POC 180 65 - 199 mg/dL [facility] Comment: Supplemental ranges: <140 mg/dL before meals <180 mg/dL all other times of the day Blood 03/31/2022 9:18 AM EST 03/31/2022 9:18 AM EST David Dejesus MD POINT OF CARE TEST ORDERABLES [facility] [place] [address] documented in this encounter Visit Diagnoses Not [...] CRNA) documented in this encounter Care Teams Advertising Intern Relationship Specialty Start Date End Date Ana Gillespie APRN [address] [place] [address] PCP - General Family Medicine 02/03/19 documented as of this encounter
--- OUTSIDE RECORDS SUMMARY | 2024-05-19 20:40 | XMS_ITS | Encounter Summary ---
Author Organization [facility] [address] Care Team Providers Care Customer Acquisition Manager Name Role Phone Ana Gillespie VAUGHN Primary Care Provider [phone] Encounter Details Date Type Department Care Team (Late st Contact Info) Description 10/21/2021 Telephone [place] [address] Chiquita James, RN Social History [...] 05/26/2024 1:10 PM EST Appointment [place] [address] Gavin Carrillo MD [facility] INTER[place] [address] 06/05/2024 1:20 PM EST Office Visit Cardiology at [address] [address] Milagros Hernandez MD [facility] [address] Scheduled Procedures Name Priority Associated Diagnoses Date/Ti me EGD, UPPER GI ENDOSCOPY (WRV U 2.09) Peptic stricture of esophagus documented as of this encounter Visit Diagnoses Not on filedocumented in this encounter Care Teams Customer Acquisition Manager Relationship Specialty Start Date End Date Ana Gillespie APRN [address] [place] [address] PCP - General Family Medicine 02/03/19 documented as of this encounter
--- OUTSIDE RECORDS SUMMARY | 2024-05-19 20:40 | XMS_ITS | Encounter Summary ---
[place] [address] Care Team Providers Care Machinist 2Nd Shift Name Role Phone Ana Gillespie VAUGHN Primary Care Provider Encounter Details Date Type Department Care Team (Late st Contact Info) Description 07/18/2021 Telephone [place] [address] Chiquita James, RN Social History Tobacco Use [...] 05/26/2024 1:10 PM EST [place] [address] Gavin Carrillo MD [facility] [place] [address] 06/05/2024 1:20 PM EST Office Visit Cardiology at [address] [address] Milagros Hernandez MD [facility] [place] [address] Scheduled Procedures Name Priority Associated Diagnoses Date/Ti me EGD, UPPER GI ENDOSCOPY (WRV U 2.09) Peptic stricture of esophagus documented as of this encounter Visit Diagnoses Not on filedocumented in this encounter Care Teams Machinist 2Nd Shift Relationship Specialty Start Date End Date Ana Gillespie APRN [address] [place] [address] PCP - General Family Medicine 02/03/19 documented as of this encounter
--- OUTSIDE RECORDS SUMMARY | 2024-05-19 20:40 | XMS_ITS | Encounter Summary ---
Author Organization [facility] Address [facility] [place] [address] Care Team Providers Care Fac Engineer Name Role Phone Ana Gillespie VAUGHN Primary Care Provider [phone] Reason for Visit * Auth/Cert Specialty Diagnoses / Procedures Referred By Esperanza rodríguez Referred To Contact Diagnoses esophagitis - please schedule in mid August Procedures PRO UPPER GI ENDOSCOPY, DIAGNOSTIC EGD, UPPER GI ENDOSCOPY Referral ID Status Reason Start Date Expiration Date Visits Re quested Visits Authorized [id number] 1 1 Encounter Details Date Type Department Care Team (Latest Contact Info) Description 09/09/2021 1:21 PM EDT - 09/09/2021 9:08 PM EDT Hospital En[place] [address] David Dejesus MD [facility] [place] [address] Discharge Disposition: Home Social History Tobacco Use [...] meter kit. 1 each 0 12/14/2014 Insulin [place], Disposable, (BD INSULIN PEN NEEDLE UF MINI) [...] 05/26/2024 1:10 PM [place] [phone] Gavin Carrillo MD [facility] [place] [address] 06/05/2024 1:20 PM EST Office Visit Cardiology at [address] [phone] Milagros Hernandez MD [facility] [place] [place] [address] Scheduled Procedures Name Priority Associated Diagnoses Date/Ti me EGD, UPPER GI ENDOSCOPY (WRV U 2.09) Peptic stricture of esophagus documented as of this encounter Visit Diagnoses Not on filedocumented in this encounter Care Teams Fac Engineer Relationship Specialty Start Date End Date Ana Gillespie APRN [address] [place] [address] PCP - General Family Medicine 02/03/19 documented as of this encounter
--- OUTSIDE RECORDS SUMMARY | 2024-05-19 20:40 | XMS_ITS | Encounter Summary ---
[place] [address] Care Team Providers Care Accounts Payable Clerk Name Role Phone Ana Gillespie STEAMBOAT CAPTAIN Primary Care Provider [phone] Encounter Details Date Type Department Care Team (Late st Contact Info) Description 09/29/2021 Telephone [place] [phone] David Dejesus MD [facility] [place] [address] Social History Tobacco Use Types Packs/Day Years [...] 05/26/2024 1:10 PM EST Appointment [place] [phone] Gavin Carrillo MD [facility] [place] [address] 06/05/2024 1:20 PM EST Office Visit Cardiology at [address] [address] Milagros Hernandez MD [facility] [place] [address] Scheduled Procedures Name Priority Associated Diagnoses Date/Ti me EGD, UPPER GI ENDOSCOPY (WRV U 2.09) Peptic stricture of esophagus documented as of this encounter Visit Diagnoses Not on filedocumented in this encounter Care Teams Accounts Payable Clerk Relationship Specialty Start Date End Date Ana Gillespie APRN [address] [place] [address] PCP - General Family Medicine 02/03/19 documented as of this encounter
--- OUTSIDE RECORDS SUMMARY | 2024-05-19 20:40 | XMS_ITS | Encounter Summary ---
Author Organization [facility] Address [facility] [place] [address] Care Team Providers Care Station Worker Name Role Phone Ana Gillespie APRN Primary Care Provider [phone] Encounter Details Date Type Department Care Team (Late st Contact Info) Description 03/31/2022 9:58 AM EST Anesthesia [place] [phone] Alfonso Duarte MD [facility] [address] [place] [address] Sergey Hahn CRNA [facility] [address] [place] [address] Anesthesia Record Procedure Summary Procedure Name Responsible [...] 920; median cubital vein (antecubital fossa), right; vbpj-jfl-rziejz catheter system; Anatomical Landmarks; US Not Used; [...] Procedure Summary Date: 03/31/22 Room / Location: [facility] 2 / [facility] Anesthesia Start: 957 Anesthesia Stop: 1038 Procedures: EGD WITH BIOPSY (WRVU 2.49) UPPER EUS- ENDOSCOPIC ULTRASOUND (Trunk) Diagnosis: (Schedule EGD in two years) Surgeons: David Dejesus MD Responsible Provider: Alfonso Duarte MD Anesthesia Type: MAC ASA Status: 3 All Anesthesia Providers: Anesthesiologist: Alfonso Duarte MD INVESTIGATION MANAGER: Susy Juárez CRNA Vitals Value Taken Time BP 108/56 03/31/22 1050 Temp Pulse Resp 19 03/31/22 1050 SpO2 100 % 03/31/22 1100 Pain Level 0 03/31/22 1050 Patient Location: PACU/[facility] Level of [...] risks discussed with patient. Plan discussed with INVESTIGATION MANAGER. Pre-Anesthesia Evaluation for: Jennifer Irving a 61 [...] 5 years - MAC without issue Plan [facility] Violet iMguel MD 01/26/2022 Clinical Trial Head Pager #[phone] Informed Consent: Anesthesia Screening Pre-Anesthesia Evaluation for: [...] risks discussed with patient. Plan discussed with INVESTIGATION MANAGER. Anesthesia Screening Anesthesia Screening documented in this encounter Plan of Treatment Upcoming Encounters Date Type Department Care Team (Late st Contact Info) Description 05/26/2024 1:10 PM [place] [address] Gavin Carrillo MD [facility] INTERVENTIONAL [place] [address] 06/05/2024 1:20 PM EST Office Visit Cardiology at [address] [address] Milagros Hernandez MD [facility] [place] [address] Scheduled Procedures Name Priority Associated [...] documented in this encounter Care Teams Station Worker Relationship Specialty Start Date End Date Ana Gillespie APRN [address] [place] [address] PCP - General Family Medicine 02/03/19 documented as of this encounter
--- OUTSIDE RECORDS SUMMARY | 2024-05-19 20:40 | XMS_ITS | Encounter Summary ---
Author Organization [facility] [place] [address] Care Team Providers Care Metropolitan Editor Name Role Phone Ana Gillespie VAUGHN Primary Care Provider [phone] Encounter Details Date Type Department Care Team (Late st Contact Info) Description 01/28/2022 Telephone [place] [phone] Ting Duran Social History Tobacco Use Types Packs/Day Years [...] - 01/28/2022 12:14 PM EDT Jennifer Irving [id number] Diagnosis/Indication: Schedule EGD in two years Please [...] your procedure. Who will likely be your ready mix truck driver for the procedure? *Please Verify [...] 05/26/2024 1:10 PM [place] [address] Gavin Carrillo MD [facility] [place] [address] 06/05/2024 1:20 PM EST Office Visit Cardiology at [address] [address] Milagros Hernandez MD [facility] [place] [address] Scheduled Procedures Name Priority Associated Diagnoses Date/Ti me EGD, UPPER GI ENDOSCOPY (WRV U 2.09) Peptic stricture of esophagus documented as of this encounter Visit Diagnoses Not on filedocumented in this encounter Care Teams Metropolitan Editor Relationship Specialty Start Date End Date Ana Gillespie APRN [address] [place] [address] PCP - General Family Medicine 02/03/19 documented as of this encounter
--- OUTSIDE RECORDS SUMMARY | 2024-05-19 20:40 | XMS_ITS | Encounter Summary ---
Author Organization [facility] [place] [address] Care Team Providers Care Client Technical Professional Name Role Phone Ana Gillespie VAUGHN Primary Care Provider [phone] Encounter Details Date Type Department Care Team (Late st Contact Info) Description 09/10/2021 Telephone [place] [address] Chiquita James, RN Social History [...] 05/26/2024 1:10 PM [place] [address] Gavin Carrillo MD [facility] [address] [place] [address] 06/05/2024 1:20 PM EST Office Visit Cardiology at [address] [address] Milagros Hernandez MD [facility] [place] [address] Scheduled Procedures Name Priority Associated Diagnoses Date/Ti me EGD, UPPER GI ENDOSCOPY (WRV U 2.09) Peptic stricture of esophagus documented as of this encounter Visit Diagnoses Not on filedocumented in this encounter Care Teams Client Technical Professional Relationship Specialty Start Date End Date Ana Gillespie APRN [address] [place] [address] PCP - General Family Medicine 02/03/19 documented as of this encounter
--- OUTSIDE RECORDS SUMMARY | 2024-05-19 20:40 | XMS_ITS | Encounter Summary ---
[place] [address] Care Team Providers Care Heel Padder Name Role Phone Ana Gillespie VAUGHN Primary Care Provider [phone] Reason for Visit * Reason Onset Date Comments Prior Authorization 10/21/2021 Encounter Details Date Type Department Care Team (Late st Contact Info) Description 10/21/2021 Telephone [place] [address] Libby Liu CCMA Prior Authorization Social History [...] Prior Authorization 4L Gastroenterology / [place] [address] Subscriber Insurance: [place] Medicaid Phone: Fax: Physician: David Dejesus NPI: Return Pharmacy: Phone: Fax: Medication Requested: Pantoprazole Strength:40mg Frequency: Take 1 Tablet by mouth twice daily Disp.: Refills: Currently taking: yes Diagnosis for this medication: Farrell's, GERD ICD-10 code: (K22.70) (K21.00) Prior medications trialed in this patient: Esomeprazole, Pantoprazole 1x daily, 20mg, Sucralfate Medication: Outcome/Adverse Reactions:Treatment Failure Decision: Approved Tracking number/Case number/Reference number: [id number] Effective date: Start: 10/21/2021 End: 10/21/2022 documented in this encounter Plan of Treatment Upcoming Encounters Date Type Department Care Team (Late st Contact Info) Description 05/26/2024 1:10 PM EST Appointment [place] [phone] Gavin Carrillo MD [facility] INTERVENTION[place] [address] 06/05/2024 1:20 PM EST Office Visit Cardiology at [address] [address] Milagros Hernandez MD [facility] [place] [address] Scheduled Procedures Name Priority Associated Diagnoses Date/Ti me EGD, UPPER GI ENDOSCOPY (WRV U 2.09) Peptic stricture of esophagus documented as of this encounter Visit Diagnoses Not on filedocumented in this encounter Care Teams Heel Padder Relationship Specialty Start Date End Date Ana Gillespie APRN [address] [place] [address] PCP - General Family Medicine 02/03/19 documented as of this encounter
--- OUTSIDE RECORDS SUMMARY | 2024-05-19 20:40 | XMS_ITS | Encounter Summary ---
Author Organization [facility] Address [facility] [address] Care Team Providers Care Training Lead Name Role Phone Ana Gillespie VAUGHN Primary Care Provider [phone] Encounter Details Date Type Department Care Team (Late st Contact Info) Description 09/23/2021 12:30 PM EDT - 09/23/2021 1:00 PM EDT [place] [phone] David Dejesus MD [facility] [place] [address] EGD WITH BIOPSY (WRVU 2.39) Social History [...] the day after the procedure, use an lpod-mou-uwazsku spray to numb your throat. Sucking on [...] occurs, please contact your Doctor. Please call [phone] before 8pm Mon-Fri with problems, questions or concerns. If you call after 8pm or on weekends, call the Hospital at [phone] and ask to speak to the Boarding Specialist continuing education instructor and the water pump operator will contact that person for [...] to the department, or notify the [facility] Privacy Office by calling toll free at between the hours of 8AM and 5PM to arrange for our retrieval of the documents at no cost to you. Content Version: 12.2 ?? [id number] [employer]. Care instructions adapted under license by [facility]. If you have questions about a medical condition or this instruction, always ask your healthcare professional. [employer] disclaims any warranty or liability for your [...] meter kit. 1 each 0 12/14/2014 Insulin Cutler, Disposable, (BD INSULIN PEN NEEDLE UF MINI) [...] 2 times daily. ??? Blood Sugar Diagnostic ([employer] ULTRA TEST) Strip 1 each by Other [...] for dosing. 15 mL 11 ??? Insulin Cutler, Disposable, (BD INSULIN PEN NEEDLE UF MINI) 31 x 3/16 Needle 1 Device by [facility].(Non-Drug; Combo Route) route 3 times daily as needed. 100 each 11 ??? lithium 300 mg Capsule Take 1,000 mg by mouth daily. ??? PARoxetine (PAXIL) 40 mg Tablet Take 20 mg by mouth every morning. ??? esomeprazole (NEXIUM) 40 mg Capsule, Delayed Release(E.C.) Take 1 capsule by mouth 2 times daily. 180 capsule 3 ??? Blood-Glucose Meter ([employer]OUCH ULTRA2) Kit by Other route. 1 = [...] 05/26/2024 1:10 PM [place] [address] Gavin Carrillo MD [facility] [place] [address] 06/05/2024 1:20 PM EST Office Visit Cardiology at [address] [address] Milagros Hernandez MD [facility] [place] [address] Scheduled Procedures Name Priority Associated Diagnoses Date/Ti me EGD, UPPER GI ENDOSCOPY (WRV U 2.09) Peptic stricture of esophagus documented as of this encounter Procedures Procedure Name Priority Date/Time Associated Diagnosis Comments SURGICAL PATHOLOGY REPORT Routine 09/23/2021 12:24 PM EDT SPECIMEN TO PATHOLOGY Routine 09/23/2021 12:24 PM EDT SPECIMEN TO PATHOLOGY Routine 09/23/2021 12:24 PM EDT Upper Gi Endoscopy, Biopsy ([id number]) 09/23/2021 12:02 PM EDT Gastroesophageal reflux disease [...] MD Verified: ??09/26/2021 19:44 ??Pathologist Performed at: ??-[facility] Dept. of Pathology, [place], [place] SPECIMEN(S) SUBMITTED A - Distal esophagus [...] labeled B1-B2. ??shb 09/26/2021 7:44 PM EDT [facility] GI Biopsy 09/23/2021 12:2 4 PM EDT 09/23/2021 12:24 PM EDT GI Biopsy 09/23/2021 12:2 4 PM EDT 09/23/2021 12:24 PM EDT David Dejesus MD PATHOLOGY/CYTOLOGY ORDERABLES [facility] [place] [address] * Specimen to Pathology (09/23/2021 12:24 PM EDT) AP Specimen 09/23/2021 12:2 4 PM EDT 09/23/2021 12:24 PM EDT Narrative [facility] - 09/23/2021 12:24 PM EDT Specimen requisition ordered. ??Separate Pathology report to follow David Dejesus MD PATHOLOGY/CYTOLOGY ORDERABLES [facility] [place] [address] * Specimen to Pathology (09/23/2021 12:24 PM EDT) AP Specimen 09/23/2021 12:2 4 PM EDT 09/23/2021 12:24 PM EDT Narrative [facility] - 09/23/2021 12:24 PM EDT Specimen requisition ordered. ??Separate Pathology report to follow David Dejesus MD PATHOLOGY/CYTOLOGY ORDERABLES Performing Organization Address [facility]/State/ZIP Co de Phone Number [facility] [place] [address] * UPPER GI ENDOSCOPY (09/23/2021 11:52 AM EDT) UPPER GI ENDOSCOPY [facility] Endoscopy Procedure Date: 09/23/2021 11:52 AM ? Patient Name: Jennifer Irving ? N: [id number] ? Date of : 1960 ? Age: 61 ? Order #: [id number] ? Instrument Name: [id number] ? Procedure: ? Upper GI endoscopy Indications: ? Heartburn Providers: ? David Dejesus MD, Neej J. ? [address], ? Theodora Farrell, Arson Investigator Referring : ?Ana Keith: ? Monitored Anesthesia [...] 09/23/2021 11:5 2 AM EDT Ana Gillespie MEDICAL TERMINOLOGIST GENERAL SURGICAL ORD ERABLES [employer]ATION documented in [...] RN) documented in this encounter Care Teams Training Lead Relationship Specialty Start Date End Date Ana Gillespie APRN [address] [place] [address] PCP - General Family Medicine 02/03/19 documented as of this encounter
--- OUTSIDE RECORDS SUMMARY | 2024-05-19 20:40 | XMS_ITS | Encounter Summary ---
Author Organization [facility] [place] [address] Care Team Providers Care Top Polisher Name Role Phone Ana Gillespie VAUGHN Primary Care Provider [phone] Encounter Details Date Type Department Care Team (Late st Contact Info) Description 09/08/2021 Telephone [place] [address] Nicole Mariscal Social History Tobacco Use Types [...] 05/26/2024 1:10 PM EST Appointment [place] [address] Gavin Carrillo MD [facility] [place] [address] 06/05/2024 1:20 PM EST Office Visit Cardiology at [address] [address] Milagros Hernandez MD [facility] [place] [address] Scheduled Procedures Name Priority Associated Diagnoses Date/Ti me EGD, UPPER GI ENDOSCOPY (WRV U 2.09) Peptic stricture of esophagus documented as of this encounter Visit Diagnoses Not on filedocumented in this encounter Care Teams Top Polisher Relationship Specialty Start Date End Date Ana Gillespie APRN [address] [place] [address] PCP - General Family Medicine 02/03/19 documented as of this encounter
--- OUTSIDE RECORDS SUMMARY | 2024-05-19 20:40 | XMS_ITS | Encounter Summary ---
Author Organization [facility] [place] [address] Care Team Providers Care Etiologist Name Role Phone Ana Gillespie APRN Primary Care Provider [phone] Encounter Details Date Type Department Care Team (Late st Contact Info) Description 01/27/2022 11:59 PM EDT Anesthesia [place] [phone] Violet Miguel MD Anesthesia Record Procedure Summary Procedure Name [...] OR MULTIPLE performed by David Dejesus MDat [facility] ??? PRO [...] MD at [facility] Social History Tobacco Use [...] issue Plan MAC Violet Miguel MD 01/26/2022 Career Center Director Pager #[phone] Informed Consent: Anesthesia Screening documented in this encounter Plan of Treatment Upcoming Encounters Date Type Department Care Team (Late st Contact Info) Description 05/26/2024 1:10 PM EST [place] [address] Gavin Carrillo MD [facility] [place] [address] 06/05/2024 1:20 PM EST Office Visit Cardiology at [address] [address] Milagros Hernandez MD [facility] [place] [address] Scheduled Procedures Name Priority Associated Diagnoses Date/Ti me EGD, UPPER GI ENDOSCOPY (WRV U 2.09) Peptic stricture of esophagus documented as of this encounter Visit Diagnoses Not on filedocumented in this encounter Care Teams Etiologist Relationship Specialty Start Date End Date Ana Gillespie APRN [address] [place] [address] PCP - General Family Medicine 02/03/19 documented as of this encounter
--- OUTSIDE RECORDS SUMMARY | 2024-05-19 20:40 | XMS_ITS | Encounter Summary ---
Author [facility] Address [facility] [place] [address] Care Team Providers Care Senior Cyber Security Analyst Name Role Phone Ana Gillespie VAUGHN Primary Care Provider [phone] Reason for Visit * Reason Onset Date Comments TeleHealth 05/20/2022 Medication and a llergy review. Encounter Details Date Type Department Care Team (Late st Contact Info) Description 05/20/2022 [place] [address] Alfonso Rose MD [facility] [place] [address] TeleHealth (Medication and allergy review. ) Social [...] 05/26/2024 1:10 PM EST [place] [phone] Gavin Carrillo MD [facility] [place] [address] 06/05/2024 1:20 PM EST Office Visit Cardiology at [address] [address] Milagros Hernandez MD [facility] [place] [address] Scheduled Procedures Name Priority Associated Diagnoses Date/Ti me EGD, UPPER GI ENDOSCOPY (WRV U 2.09) Peptic stricture of esophagus documented as of this encounter Visit Diagnoses Not on filedocumented in this encounter Care Teams Senior Cyber Security Analyst Relationship Specialty Start Date End Date Ana Gillespie APRN [address] [place] [address] PCP - General Family Medicine 02/03/19 documented as of this encounter
--- OUTSIDE RECORDS SUMMARY | 2024-05-19 20:40 | XMS_ITS | Encounter Summary ---
Author Organization [facility] [place] [address] Care Team Providers Care Light Equipment Operator Name Role Phone Ana Gillespie APRN Primary Care Provider [phone] Encounter Details Date Type Department Care Team (Late st Contact Info) Description 05/25/2022 Telephone [facility] [place] [phone] Jaymie Bass Social History Tobacco Use Types [...] - 05/25/2022 12:22 PM EST Jennifer Irving [id number] EGD with Anesthesia within 1 week per [...] your procedure. Who will likely be your driver/guide for the procedure? yes *Please Verify the [...] 05/26/2024 1:10 PM EST [place] [address] Gavin aCrrillo MD [facility] [place] [address] 06/05/2024 1:20 PM EST Office Visit Cardiology at [address] [address] Milagros Hernandez MD [facility] [place] [address] Scheduled Procedures Name Priority Associated Diagnoses Date/Ti me EGD, UPPER GI ENDOSCOPY (WRV U 2.09) Peptic stricture of esophagus documented as of this encounter Visit Diagnoses Not on filedocumented in this encounter Care Teams Light Equipment Operator Relationship Specialty Start Date End Date Ana Gillespie APRN [address] [place] [address] PCP - General Family Medicine 02/03/19 documented as of this encounter
--- OUTSIDE RECORDS SUMMARY | 2024-05-19 20:40 | XMS_ITS | Encounter Summary ---
Author Organization [facility] [place] [address] Care Team Providers Care Export Administrator Name Role Phone Ana Gillespie VAUGHN Primary Care Provider [phone] Encounter Details Date Type Department Care Team (Late st Contact Info) Description 10/29/2021 Telephone [place] [phone] Juice Maxwell RN Social History Tobacco Use [...] 05/26/2024 1:10 PM [place] [phone] Gavin Carrillo MD [facility] [place] [address] 06/05/2024 1:20 PM EST Office Visit Cardiology at [address] [address] Milagros Hernandez MD [facility] [place] [address] Scheduled Procedures Name Priority Associated Diagnoses Date/Ti me EGD, UPPER GI ENDOSCOPY (WRV U 2.09) Peptic stricture of esophagus documented as of this encounter Visit Diagnoses Not on filedocumented in this encounter Care Teams Export Administrator Relationship Specialty Start Date End Date Ana Gillespie APRN [address] [place] [address] PCP - General Family Medicine 02/03/19 documented as of this encounter
--- OUTSIDE RECORDS SUMMARY | 2024-05-19 20:40 | XMS_ITS | Encounter Summary ---
Author Organization [facility]ly [facility] Address [facility] [place] [address] Care Team Providers Care Cellular Equipment Installer Name Role Phone Ana Gillespie VAUGHN Primary Care Provider Encounter Details Date Type Department Care Team (Latest Contact Info) Description 09/23/2021 11:01 AM EDT - 09/23/2021 1:32 PM EDT Hospital En[place] [address] David Dejesus MD [facility] [place] [address] Discharge Disposition: Home Social History Tobacco Use [...] the day after the procedure, use an hxav-fiu-ehapqid spray to numb your throat. Sucking on [...] occurs, please contact your Doctor. Please call [phone] before 8pm Mon-Fri with problems, questions or concerns. If you call after 8pm or on weekends, call the Hospital at [phone] and ask to speak to the Qa Developer on call pharmacy technician and the doubling machine operator will contact that person for [...] problems. Where can you learn more? [facility] View your After Visit Summary and more online at [email or web address] If you would like to provide feedback about your hospital experience, please call the Office of Patient and Family Relations at . If you have received this After Visit Summary in error, please immediately return it in person to the department, or notify the [facility] Privacy Office by calling toll free at between the hours of 8AM and 5PM to arrange for our retrieval of the documents at no cost to you. Content Version: 12.2 ?? [phone] [employer], Marley Spoon. Care instructions adapted under license by [facility]. If you have questions about a medical condition or this instruction, always ask your healthcare professional. [employer] disclaims any warranty or liability for [...] meter kit. 1 each 0 12/14/2014 Insulin [place], Disposable, (BD INSULIN PEN NEEDLE UF MINI) [...] EGD for follow up of esophagitis; known Frarell's esophagus. PROBLEM LIST Patient Active Problem List [...] 2 times daily. ??? Blood Sugar Diagnostic (SlapVidUCH ULTRA TEST) Strip 1 each by Other [...] for dosing. 15 mL 11 ??? Insulin [place], Disposable, (BD INSULIN PEN NEEDLE UF MINI) 31 x 3/16 Needle 1 Device by [facility].(Non-Drug; Combo Route) route 3 times daily as [...] 05/26/2024 1:10 PM EST [place] [address] Gavin Carrillo MD [facility] [place] [address] 06/05/2024 1:20 PM EST Office Visit Cardiology at [address] [address] Milagros Hernandez MD [facility] [place] [address] (work) Scheduled Procedures Name Priority Associated Diagnoses Date/Ti me EGD, UPPER GI ENDOSCOPY (WRV U 2.09) Peptic stricture of esophagus documented as of this encounter Procedures Procedure Name Priority Date/Time Associated Diagnosis Comments SURGICAL PATHOLOGY REPORT Routine 09/23/2021 12:24 PM EDT SPECIMEN TO PATHOLOGY Routine 09/23/2021 12:24 PM EDT SPECIMEN TO PATHOLOGY Routine 09/23/2021 12:24 PM EDT Upper Gi Endoscopy, Biopsy ([id number]) 09/23/2021 12:02 PM EDT Gastroesophageal reflux disease [...] MD Verified: ??09/26/2021 19:44 ??Pathologist Performed at: ??-[facility] Dept. of Pathology, [place], [place] SPECIMEN(S) SUBMITTED A - Distal esophagus [...] PATHOLOGY/CYTOLOGY ORDERABLES [facility] [place] [address] * Specimen to Pathology (09/23/2021 12:24 PM EDT) AP Specimen 09/23/2021 12:2 4 PM EDT 09/23/2021 12:24 PM EDT Narrative [facility] - 09/23/2021 12:24 PM EDT Specimen requisition ordered. ??Separate Pathology report to follow David Dejesus MD PATHOLOGY/CYTOLOGY ORDERABLES [facility] [place] [address] * Specimen to Pathology (09/23/2021 12:24 PM EDT) AP Specimen 09/23/2021 12:2 4 PM EDT 09/23/2021 12:24 PM EDT Narrative [facility] - 09/23/2021 12:24 PM EDT Specimen requisition ordered. ??Separate Pathology report to follow David Dejesus MD PATHOLOGY/CYTOLOGY ORDERABLES Performing Organization Address [facility]/ZIP Co de Phone Number [facility] [place] [address] * UPPER GI ENDOSCOPY (09/23/2021 11:52 AM EDT) UPPER GI ENDOSCOPY [facility] Endoscopy Procedure Date: 09/23/2021 11:52 AM ? Patient Name: Jennifer Irving ? N: [id number] ? Date of : 1960 ? Age: 61 ? Order #: [id number] ? Instrument Name: [id number] ? Procedure: ? Upper GI endoscopy Indications: ? Heartburn Providers: ? David Dejesus MD, Neej J. ? [address], ? Theodora Farrell, Coke Production Heater Referring : ?Ana Keith: ? Monitored Anesthesia [...] 09/23/2021 11:5 2 AM EDT Ana Gillespie ORTHODONTIC LAB TECHNICIAN GENERAL SURGICAL ORD ERABLES [employer]OVATION documented [...] RN) documented in this encounter Care Teams Cellular Equipment Installer Relationship Specialty Start Date End Date Ana Gillespie APRN [address] [place] [address] PCP - General Family Medicine 02/03/19 documented as of this encounter
--- OUTSIDE RECORDS SUMMARY | 2024-05-19 20:40 | XMS_ITS | Encounter Summary ---
Author Organization [facility] Address [facility] [place] [address] Care Team Providers Care Supervisor Carbon Electrodes Name Role Phone Ana Gillespie VAUGHN Primary Care Provider [phone] Reason for Referral * Consultation (Routine) - Closed Specialty Diagnoses / Procedures Referred By Esperanza rodríguez Referred To Contact Neurology Diagnoses Primary parkinsonism David Dejesus MD [facility] [place] [address] [facility] Neurology [address] [place] [address] Referral ID Status Reason Start Date Expiration Date V isits Requested Visits Authorized [id number] Closed Consult, Test & Treat 09/23/2021 09/23/2022 1 1 Encounter Details Date Type Department Care Team (Late st Contact Info) Description 09/23/2021 Orders [place] [phone] David Dejesus MD [facility] [address] Primary parkinsonism Social History Tobacco Use Types [...] 05/26/2024 1:10 PM EST [place] [address] Gavin Carrillo MD [facility] [place] [address] 06/05/2024 1:20 PM EST Office Visit Cardiology at [address] [address] Milagros Hernandez MD [facility] [place] [address] Scheduled Procedures Name Priority Associated Diagnoses Date/Ti me EGD, UPPER GI ENDOSCOPY (WRV U 2.09) Peptic stricture of esophagus Scheduled Referrals Name Type Priority Associated Diagnoses Orde r Schedule Referral to Neurology Outpatient Referral Routine Primary Parkinsonism Ordered: 09/23/2021 documented as of this encounter Visit Diagnoses Diagnosis Primary parkinsonism Paralysis agitans documented in this encounter Care Teams Supervisor Carbon Electrodes Relationship Specialty Start Date End Date Ana Gillespie APRN [address] [place] [address] PCP - General Family Medicine 02/03/19 documented as of this encounter
--- OUTSIDE RECORDS SUMMARY | 2024-05-19 20:40 | XMS_ITS | Encounter Summary ---
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 She needs this to be sent to the [place] [facility] [employer] for medical issue. Forwarded for review documented in this encounter Plan of Treatment Upcoming Encounters Date Type Department Care Team (Late st Contact Info) Description 05/26/2024 1:10 PM EST [place] [address] Gavin Carrillo MD [facility] [place] [address] 06/05/2024 1:20 PM EST Office Visit Cardiology at [address] [phone] Milagros Hernandez MD [facility] [place] [address] Scheduled Procedures Name Priority Associated Diagnoses Date/Ti me EGD, UPPER GI ENDOSCOPY (WRV U 2.09) Peptic stricture of esophagus documented as of this encounter Visit Diagnoses Not on filedocumented in this encounter Care Teams Membership Sales Representative Relationship Specialty Start Date End Date Ana Gillespie APRN [address] [place] [address] PCP - General Family Medicine 02/03/19 documented as of this encounter
--- OUTSIDE RECORDS SUMMARY | 2024-05-19 20:40 | XMS_ITS | Encounter Summary ---
Author Organization [facility] Address [facility] [place] [address] Care Team Providers Care Production Line Manager Name Role Phone Ana Gillespie APRN Primary Care Provider [phone] Reason for Visit * Reason Onset Date Comments Medication Refill 09/17/2020 Encounter Details Date Type Department Care Team (Late st Contact Info) Description 09/17/2020 Refill [place] [address] David Dejesus MD [facility] [place] [address] Social History Tobacco Use Types Packs/Day Years [...] 05/26/2024 1:10 PM EST [place] [address] Gavin Carrillo MD [facility] [place] [address] 06/05/2024 1:20 PM EST Office Visit Cardiology at [address] [address] Milagros Hernandez MD [facility] [place] [address] Scheduled Procedures Name Priority Associated Diagnoses Date/Ti me EGD, UPPER GI ENDOSCOPY (WRV U 2.09) Peptic stricture of esophagus documented as of this encounter Visit Diagnoses Not on filedocumented in this encounter Care Teams Production Line Manager Relationship Specialty Start Date End Date Ana Gillespie APRN [address] [place] [address] PCP - General Family Medicine 02/03/19 documented as of this encounter
--- OUTSIDE RECORDS SUMMARY | 2024-05-19 20:40 | XMS_ITS | Encounter Summary ---
Author Organization [facility] [place] [address] Care Team Providers Care Agricultural Equipment Design Engineer Name Role Phone Ana Gillespie VAUGHN Primary Care Provider [phone] Encounter Details Date Type Department Care Team (Late st Contact Info) Description 10/27/2021 Telephone [place] [address] Chiquita James, RN Social History [...] 05/26/2024 1:10 PM EST [place] [address] Gavin Carrillo MD [facility] [place] [address] 06/05/2024 1:20 PM EST Office Visit Cardiology at [address] [address] Milagros Hernandez MD [facility] [place] [address] Scheduled Procedures Name Priority Associated Diagnoses Date/Ti me EGD, UPPER GI ENDOSCOPY (WRV U 2.09) Peptic stricture of esophagus documented as of this encounter Visit Diagnoses Not on filedocumented in this encounter Care Teams Agricultural Equipment Design Engineer Relationship Specialty Start Date End Date Ana Gillespie APRN [address] [place] [address] PCP - General Family Medicine 02/03/19 documented as of this encounter
--- OUTSIDE RECORDS SUMMARY | 2024-05-19 20:40 | XMS_ITS | Encounter Summary ---
Author Organization [facility] [place] [address] Care Team Providers Care Pool Table Operator Name Role Phone Ana Gillespie APRN Primary Care Provider Encounter Details Date Type Department Care Team (Late st Contact Info) Description 06/25/2021 Orders [place] [address] David Dejesus MD [facility] [place] [address] Gastroesophageal reflux disease with esophagitis without hemorrhage [...] 05/26/2024 1:10 PM [place] [address] Gavin Carrillo MD [facility] [place] [address] 06/05/2024 1:20 PM EST Office Visit Cardiology at [address] [address] Milagros Hernanedz MD [facility] [place] [address] Scheduled Procedures Name Priority Associated Diagnoses Date/Ti me EGD, UPPER GI ENDOSCOPY (WRV U 2.09) Peptic stricture of esophagus documented as of this encounter Visit Diagnoses Diagnosis Gastroesophageal reflux disease with esophagitis without hemorrhage documented in this encounter Care Teams Pool Table Operator Relationship Specialty Start Date End Date Ana Gillespie APRN [address] [place] [address] PCP - General Family Medicine 02/03/19 documented as of this encounter
--- OUTSIDE RECORDS SUMMARY | 2024-05-19 20:40 | XMS_ITS | Encounter Summary ---
Author Organization [facility] [place] [address] Care Team Providers Care Resort Manager Name Role Phone Ana Gillespie VAUGHN Primary Care Provider [phone] Encounter Details Date Type Department Care Team (Late st Contact Info) Description 07/07/2021 Telephone [place] [phone] Ting Duran Social History Tobacco Use Types [...] 05/26/2024 1:10 PM EST Appointment [place] [phone] Gavin Carrillo MD [facility] [address] [place] [address] 06/05/2024 1:20 PM EST Office Visit Cardiology at [address] [address] Milagros Hernandez MD [facility] [place] [address] Scheduled Procedures Name Priority Associated Diagnoses Date/Ti me EGD, UPPER GI ENDOSCOPY (WRV U 2.09) Peptic stricture of esophagus documented as of this encounter Visit Diagnoses Not on filedocumented in this encounter Care Teams Resort Manager Relationship Specialty Start Date End Date Ana Gillespie APRN [address] [place] [address] PCP - General Family Medicine 02/03/19 documented as of this encounter
--- OUTSIDE RECORDS SUMMARY | 2024-05-19 20:40 | XMS_ITS | Encounter Summary ---
[place] [address] Care Team Providers Care Bus Assistant Name Role Phone Ana Gillespie VAUGHN Primary Care Provider [phone] Encounter Details Date Type Department Care Team (Late st Contact Info) Description 05/28/2022 Telephone [place] [phone] Chiquita James, RN Social History Tobacco Use [...] 05/26/2024 1:10 PM EST Appoint[place] [phone] Gavin Carrillo MD [facility] [place] [address] 06/05/2024 1:20 PM EST Office Visit Cardiology at [address] [address] Milagros Hernandez MD [facility] [place] [address] Scheduled Procedures Name Priority Associated Diagnoses Date/Ti me EGD, UPPER GI ENDOSCOPY (WRV U 2.09) Peptic stricture of esophagus documented as of this encounter Visit Diagnoses Not on filedocumented in this encounter Care Teams Bus Assistant Relationship Specialty Start Date End Date Ana Gillespie APRN [address] [place] [address] PCP - General Family Medicine 02/03/19 documented as of this encounter
--- OUTSIDE RECORDS SUMMARY | 2024-05-19 20:40 | XMS_ITS | Encounter Summary ---
Author Organization [facility] [place] [address] Care Team Providers Care Senior Solutions Engineer Name Role Phone Ana Gillespie VAUGHN Primary Care Provider [phone] Reason for Visit * Reason Onset Date Comments Appointment 11/28/2020 Encounter Details Date Type Department Care Team (Late st Contact Info) Description 11/28/2020 Telephone [place] [phone] Evelin Novak I Appointment Social History Tobacco [...] 05/26/2024 1:10 PM EST [place] [phone] Gavin Carrillo MD [facility] [place] [address] 06/05/2024 1:20 PM EST Office Visit Cardiology at [address] [address] Milagros Hernandez MD [facility] [place] [address] Scheduled Procedures Name Priority Associated Diagnoses Date/Ti me EGD, UPPER GI ENDOSCOPY (WRV U 2.09) Peptic stricture of esophagus documented as of this encounter Visit Diagnoses Not on filedocumented in this encounter Care Teams Senior Solutions Engineer Relationship Specialty Start Date End Date Ana Gillespie APRN [address] [place] [address] PCP - General Family Medicine 02/03/19 documented as of this encounter
--- OUTSIDE RECORDS SUMMARY | 2024-05-19 20:41 | XMS_ITS | Encounter Summary ---
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 Procedures PRO UPPER GI ENDOSCOPY, DIAGNOSTIC PRO COLONOSCOPY, DIAGNOSTIC EGD, UPPER GI ENDOSCOPY Referral ID Status Reason Start Date Expiration Date Visits Re quested Visits Authorized [id number] 1 1 Encounter Details Date Type Department Care Team (Late st Contact Info) Description 03/20/2016 11:00 AM EST - 03/20/2016 12:00 PM EST Surgery [place] [address] David Dejesus MD [facility] [place] [address] EGD WITH BIOPSY (WRVU 2.39) Social History [...] or concerns, please call us Wednesday-Wednesday Clinic [phone] 8a-5p Same Day Endo [phone]-8p Nights and weekends contact [phone] and ask to speak to the oracle erp developer customer service professional. Follow up care is a fam [...] meter kit. 1 each 0 12/14/2014 Insulin [place], Disposable, (BD INSULIN PEN NEEDLE UF MINI) [...] 05/26/2024 1:10 PM [place] [address] Gavin Carrillo MD [facility] DR INTERVENTIONAL [place] [address] 06/05/2024 1:20 PM EST Office Visit Cardiology at [address] [phone] Milagros Hernandez MD [facility] [place] [address] Scheduled Procedures Name Priority Associated Diagnoses Date/Ti [...] Report (03/20/2016 12:43 PM EST) Final Diagnosis [id number] ?Location: 4T; EA07; A The signing pathologist [...] Dejesus MD PATHOLOGY/CYTOLOGY ORDERABLES Performing Organization Address City/State/[facility] Co de Phone Number [facility] [place] [address] * Specimen to Pathology (surgical or derm) (03/20/2016 12:43 PM EST) AP Specimen 03/20/2016 12:4 3 PM EST 03/20/2016 12:43 PM EST Narrative [facility] - 03/20/2016 12:43 PM EST Specimen requisition ordered. ??Separate Pathology report to follow David Dejesus MD PATHOLOGY/[place] [address] * Specimen to Pathology (surgical or derm) (03/20/2016 12:43 PM EST) AP Specimen 03/20/2016 12:4 3 PM EST 03/20/2016 12:43 PM EST Narrative [facility] - 03/20/2016 12:43 PM EST Specimen requisition ordered. ??Separate Pathology report to follow David Dejesus MD PATHOLOGY/CYTOLOGY ORDERABLES Performing Organization Address City/[facility]/[place] [address] * Specimen to Pathology (surgical or derm) (03/20/2016 12:43 PM EST) AP Specimen 03/20/2016 12:4 3 PM EST 03/20/2016 12:43 PM EST Narrative [facility] - 03/20/2016 12:43 PM EST Specimen requisition ordered. ??Separate Pathology report to follow David Dejesus MD PATHOLOGY/CYTOLOGY ORDERABLES Performing Organization Address City/[facility]/[place] [address] * Specimen to Pathology (surgical or derm) (03/20/2016 12:43 PM EST) AP Specimen 03/20/2016 12:4 3 PM EST 03/20/2016 12:43 PM EST Narrative [facility] - 03/20/2016 12:43 PM EST Specimen requisition ordered. ??Separate Pathology report to follow David Dejesus MD PATHOLOGY/CYTOLOGY ORDERABLES Performing Organization Address City/[facility]/[place] [address] * Specimen to Pathology (surgical or derm) (03/20/2016 12:43 PM EST) AP Specimen 03/20/2016 12:4 3 PM EST 03/20/2016 12:43 PM EST Narrative [facility] - 03/20/2016 12:43 PM EST Specimen requisition ordered. ??Separate Pathology report to follow David Dejesus MD PATHOLOGY/CYTOLOGY ORDERABLES Performing Organization Address [facility] [place] [address] * Specimen to Pathology (surgical or derm) (03/20/2016 12:43 PM EST) AP Specimen 03/20/2016 12:4 3 PM EST 03/20/2016 12:43 PM EST Narrative [facility] - 03/20/2016 12:43 PM EST Specimen requisition ordered. ??Separate Pathology report to follow David Dejesus MD PATHOLOGY/CYTOLOGY ORDERABLES Performing Organization Address [facility] [place] [address] * COLONOSCOPY (03/20/2016 11:32 AM EST) COLONOSCOPY [facility] Endoscopy Procedure Date: 03/20/2016 11:32 AM ? Patient Name: Jennifer Irving ? N: [id number] ? Date of : 1960 ? Age: 55 ? Order #: [id number] ? Instrument Name: [id number] ? Procedure: ? Colonoscopy Indications: ? Screening for colorectal malignant ? neoplasm Providers: ? David Dejesus MD, Geronimo Joyner ? MD Valerie, Tapan Chong RN, ? Theodora Farrell, Supervisor Assembly Room Referring : ?David Blue MD Medicines: ? [...] EST) UPPER GI ENDOSCOPY [facility] Endoscopy Procedure Date: 03/20/2016 11:31 AM ? Patient Name: Jennifer Irving ? N: [id number] ? Date of : 1960 ? Age: 55 ? Order #: [id number] ? Instrument Name: [id number] ? Procedure: ? Upper GI endoscopy Indications: [...] care under the ? supervision of a PICKING MACHINE OPERATOR HELPER was determined ? to be medically necessary [...] TEST ORDERABLES [facility] [place] [address] * (ABNORMAL) POCT Fingerstick Glucose (03/20/2016) Glucose, [...] CRNA) documented in this encounter Care Teams Mass Spec Relationship Specialty Start Date End Date David Blue MD [address] [place] [address] PCP - General 04/01/10 02/02/19 documented as of this encounter
--- OUTSIDE RECORDS SUMMARY | 2024-05-19 20:41 | XMS_ITS | Encounter Summary ---
[place] [address] Care Team Providers Care Remelt Sugar Boiler Name Role Phone David Blue MD Primary Care Provider + [phone] Reason for Visit * Reason Onset Date Comments Prior Authorization 02/26/2016 Encounter Details Date Type Department Care Team (Late st Contact Info) Description 02/26/2016 [place] [address] Francoise Vides CMA Prior Authorization Social History [...] Prior Authorization 4L Gastroenterology / [place] [address] Subscriber Insurance: [place] Physician: David Dejesus Return Pharmacy: [facility] [...] lapse in usage. Tracking number/Case number/Reference number: [id number] Effective date: Start: End: documented in this encounter Plan of Treatment Upcoming Encounters Date Type Department Care Team (Late st Contact Info) Description 05/26/2024 1:10 PM [place] [phone] Gavin Carrillo MD [facility] INTERVENTIONAL [place] [address] 06/05/2024 1:20 PM EST Office Visit Cardiology at [address] [address] Milagros Hernandez MD [facility] [place] [address] Scheduled Procedures Name Priority Associated Diagnoses Date/Ti me EGD, UPPER GI ENDOSCOPY (WRV U 2.09) Peptic stricture of esophagus documented as of this encounter Visit Diagnoses Not on filedocumented in this encounter Care Teams Remelt Sugar Boiler Relationship Specialty Start Date End Date David Blue MD [address] [place] [address] PCP - General 04/01/10 02/02/19 documented as of this encounter
--- OUTSIDE RECORDS SUMMARY | 2024-05-19 20:41 | XMS_ITS | Encounter Summary ---
Author Organization [facility] Address [facility] [place] [address] Care Team Providers Care Kitchen And Bath Designer Name Role Phone Ana Gillespie VAUGHN Primary Care Provider [phone] Encounter Details Date Type Department Care Team (Latest Contact Info) Description 03/01/2020 6:57 AM EDT - 03/01/2020 10:26 AM EDT Hospital Encounter Gastroenterology at [facility] [place] [address] David Dejesus MD [facility] [place] [address] Discharge Disposition: Home Social History Tobacco Use [...] the day after the procedure, use an hgrs-xvg-cokqaqu spray to numb your throat. Sucking on [...] occurs, please contact your Doctor. Please call [phone] before 8pm Mon-Fri with problems, questions or concerns. If you call after 8pm or on weekends, call the Hospital at [phone] and ask to speak to the Dental Laboratory Technician Apprentice emergency vehicle operations instructor and the hard rock drill operator will contact that person for you. [...] cost to you. Content Version: 12.2 ?? 6091-9689 [employer]. Care instructions adapted under license by [facility]. If you have questions about a medical condition or this instruction, always ask your healthcare professional. [employer] disclaims any warranty or liability for your [...] occurs, please contact your Doctor. Please call [phone] before 8pm Mon-Fri with problems, questions or concerns. If you call after 8pm or on weekends, call the Hospital at [phone] and ask to speak to the Dental Laboratory Technician Apprentice emergency vehicle operations instructor and the hard rock drill operator will contact that person for you. When should you call for help? Call [phone] anytime you think you may need emergency [...] cost to you. Content Version: 12.2 ?? 9296-6999 [employer]. Care instructions adapted under license by [facility]. If you have questions about a medical condition or this instruction, always ask your healthcare professional. [employer] disclaims any warranty or liability for your [...] meter kit. 1 each 0 12/14/2014 Insulin [place], Disposable, (BD INSULIN PEN NEEDLE UF MINI) 31 x 3/16 NeedleIndications:Di abetes mellitus type 2, uncontrolled 1 Device by [facility] – [...] by mouth daily. ??? Blood Sugar Diagnostic ([employer] ULTRA TEST) Strip 1 each by Other [...] meter kit. 1 each 0 ??? Insulin [place], Disposable, (BD INSULIN PEN NEEDLE UF MINI) [...] 05/26/2024 1:10 PM [place] [address] Gavin Carrillo MD [facility] [place] [address] 06/05/2024 1:20 PM EST Office Visit Cardiology at [address] [address] Milagros Hernandez MD [facility] [place] [address] Scheduled Procedures Name Priority Associated Diagnoses Date/Ti [...] 8:42 AM EDT Upper Gi Endoscopy, Biopsy (07060) 03/01/2020 8:36 AM EDT needs egd/colonoscopy for GERD and screening colo rojelio Colonoscopy, Diagnostic (18464) 03/01/2020 8:36 AM EDT needs egd/colonoscopy for GERD and screening colo rojelio Upper GI Endoscopy, Diagnostic (49571) 03/01/2020 8:36 AM EDT needs egd/colonoscopy for GERD and screening colo rojelio UPPER GI ENDOSCOPY Routine 03/01/2020 7: 47 AM EDT COLONOSCOPY Routine 03/01/2020 7:22 AM EDT documented in this encounter Results * Surgical Pathology Report (03/01/2020 8:42 AM EDT) Final Diagnosis [id number] ? Location: 4T; EA06; A The signing [...] Hill MD Verified: ??03/10/2020 ?Pathologist Performed at: ??[facility] Dept. of Pathology, [place], [place] SPECIMEN(S) SUBMITTED A - 28 cm, [...] ORDERABLES Performing Organization Address [facility] [place] [address] * Specimen to Pathology (03/01/2020 8:42 AM EDT) AP Specimen 03/01/2020 8:42 AM EDT 03/01/2020 8:42 AM EDT Narrative [facility] - 03/01/2020 8:42 AM EDT Specimen requisition ordered. ??Separate Pathology report to follow David Dejesus MD PATHOLOGY/CYTOLOGY ORDERABLES Performing Organization Address [facility] Co de Phone Number [facility] [place] [address] * Specimen to Pathology (03/01/2020 8:42 AM EDT) AP Specimen 03/01/2020 8:42 AM EDT 03/01/2020 8:42 AM EDT Narrative [facility] - 03/01/2020 8:42 AM EDT Specimen requisition ordered. ??Separate Pathology report to follow David Dejesus MD PATHOLOGY/CYTOLOGY ORDERABLES Performing Organization Address [facility] Co de Phone Number [facility] [place] [address] * Specimen to Pathology (03/01/2020 8:42 AM EDT) AP Specimen 03/01/2020 8:42 AM EDT 03/01/2020 8:42 AM EDT Narrative [facility] - 03/01/2020 8:42 AM EDT Specimen requisition ordered. ??Separate Pathology report to follow David Dejesus MD PATHOLOGY/CYTOLOGY ORDERABLES Performing Organization Address [facility] Co de Phone Number [facility] [place] [address] * Specimen to Pathology (03/01/2020 8:42 AM EDT) AP Specimen 03/01/2020 8:42 AM EDT 03/01/2020 8:42 AM EDT Narrative [facility] - 03/01/2020 8:42 AM EDT Specimen requisition ordered. ??Separate Pathology report to follow David Dejesus MD PATHOLOGY/CYTOLOGY ORDERABLES Performing Organization Address [facility] [place] [address] * UPPER GI ENDOSCOPY (03/01/2020 7:47 AM EDT) UPPER GI ENDOSCOPY [facility] Endoscopy Procedure Date: 03/01/2020 7:47 AM ? Patient Name: Jennifer Irving ? N: [id number] ? Date of : 1960 ? Age: 59 ? Order #: [id number] ? Instrument Name: [id number] ? Procedure: ? Upper GI endoscopy Indications: [...] * COLONOSCOPY (03/01/2020 7:22 AM EDT) COLONOSCOPY [facility] Endoscopy Procedure Date: 03/01/2020 7:22 AM ? Patient Name: Jennifer Irving ? Date of : 1960 ? Age: 59 ? Order #: [id number] ? Instrument Name: [id number] ? Procedure: ? Colonoscopy Indications: ? Screening [...] CRNA) documented in this encounter Care Teams Kitchen And Bath Designer Relationship Specialty Start Date End Date Ana Gillespie APRN [address] [place] [address] PCP - General Family Medicine 02/03/19 documented as of this encounter
--- OUTSIDE RECORDS SUMMARY | 2024-05-19 20:41 | XMS_ITS | Encounter Summary ---
Author Organization [facility] Address [facility] [place] [address] Care Team Providers Care Damaged Freight Inspector Name Role Phone Ana Gillespie VAUGHN Primary Care Provider [phone] Reason for Referral * Consultation (PJ) - Closed Specialty Diagnoses / Procedures Referred By Contac t Referred To Contact Gastroenterology Diagnoses Iron deficiency anemia due to chronic blood loss Procedures needs egd/colonoscopy for GERD and screening colo pj David Dejesus MD [facility] [place] [address] [facility] Endoscopy [address] [place] [address] Referral ID Status Reason Start Date Expiration Date V isits Requested Visits Authorized [id number] Closed Consult, Test & Treat 12/25/2019 12/24/2020 1 1 Encounter Details Date Type Department Care Team (Late st Contact Info) Description 12/25/2019 Orders [place] [address] David Dejesus MD [facility] [place] [address] Iron deficiency anemia due to chronic blood [...] 05/26/2024 1:10 PM [place] [address] Gavin Carrillo MD [facility] INTERVENTIONAL [place] [address] 06/05/2024 1:20 PM EST Office Visit Cardiology at [address] [address] Milagros Hernandez MD [facility] [place] [address] Scheduled Procedures Name Priority Associated Diagnoses Date/Ti [...] (chronic) documented in this encounter Care Teams Damaged Freight Inspector Relationship Specialty Start Date End Date Ana Gillespie APRN [address] [place] [address] PCP - General Family Medicine 02/03/19 documented as of this encounter
--- OUTSIDE RECORDS SUMMARY | 2024-05-19 20:41 | XMS_ITS | Encounter Summary ---
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 Procedures PRO UPPER GI ENDOSCOPY, DIAGNOSTIC PRO COLONOSCOPY, DIAGNOSTIC EGD, UPPER GI ENDOSCOPY Referral ID Status Reason Start Date Expiration Date Visits Re quested Visits Authorized [id number] 1 1 Encounter Details Date Type Department Care Team (Late st Contact Info) Description 03/20/2016 11:24 AM EST Anesthesia Event [place] [address] Calli Jean MD Glenn, David C, [address] ANEST[place] [address] Anesthesia Record Procedure Summary Procedure Name Responsible [...] Calli Jean - 03/21/2016 9:50 AM EST [facility] [place] of Anesthesiology Post-procedure Note Patient: Jennifer Irving Procedure Summary Date Anesthesia Start Anesthesia Stop Room / Location 03/20/16 1124 1240 [facility] ENDO 3 / [facility] Procedure Diagnosis Surgeon Responsible Provider EGD WITH BIOPSY (N/A Trunk); COLONOSCOPY FLEXIBLE, WITH BX (N/A Trunk) (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 Pro upper gi endoscopy, biopsy N/A 04/03/2014 UPPER GASTROINTESTINAL ENDOSCOPY,WITH BIOPSY SINGLE OR MULTIPLE performed by David Dejesus MDat [facility] ENDOSCOPY Social History Substance Use Topics [...] risks discussed with patient. Plan discussed with DIRECTOR SAFETY. PAT Staff Note documented in this encounter Plan of Treatment Upcoming Encounters Date Type Department Care Team (Late st Contact Info) Description 05/26/2024 1:10 PM EST Appointment [place] [address] Gavin Carrillo MD [facility] [place] [address] 06/05/2024 1:20 PM EST Office Visit Cardiology at [address] [phone] Milagros Hernandez MD [facility] [place] [address] Scheduled Procedures Name Priority Associated Diagnoses Date/Ti [...] r documented in this encounter Care Teams Dial Lathe Operator Relationship Specialty Start Date End Date David Blue MD [address] [place] [address] PCP - General 04/01/10 02/02/19 documented as of this encounter
--- OUTSIDE RECORDS SUMMARY | 2024-05-19 20:41 | XMS_ITS | Encounter Summary ---
Author Organization [facility] Address [facility] Marly petersen [place] [id number] Care Team Providers Care Classification Clerk Name Role Phone David Blue MD Primary Care Provider [phone] Encounter Details Date Type Department Care Team (Late st Contact Info) Description 03/02/2018 Orders Only Gastroenterology at [place] [phone] David Dejesus MD [facility] [place] [address] Breast cancer screening Social History Tobacco Use [...] 05/26/2024 1:10 PM [place] [address] Gavin Carrillo MD [facility] [place] [address] 06/05/2024 1:20 PM EST Office Visit Cardiology at [address] [address] Milagros Hernandez MD [facility] [address] Scheduled Procedures Name Priority Associated Diagnoses Date/Ti me EGD, UPPER GI ENDOSCOPY (WRV U 2.09) Peptic stricture of esophagus documented as of this encounter Visit Diagnoses Diagnosis Breast cancer screening Breast screening, unspecified documented in this encounter Care Teams Classification Clerk Relationship Specialty Start Date End Date David Blue MD [address] [place] [address] PCP - General 04/01/10 02/02/19 documented as of this encounter
--- OUTSIDE RECORDS SUMMARY | 2024-05-19 20:41 | XMS_ITS | Encounter Summary ---
[place] [address] Care Team Providers Care Vice President Underwriting Name Role Phone David Blue MD Primary Care Provider + [phone] Reason for Visit * Reason Onset Date Comments Medication Refill 09/20/2018 Encounter Details Date Type Department Care Team (Late st Contact Info) Description 09/20/2018 Telephone [place] [address] Francoise Vides CMA Medication Refill Social History Tobacco Use Types [...] 05/26/2024 1:10 PM [place] [address] Gavin Carrillo MD [facility] [place] [address] 06/05/2024 1:20 PM EST Office Visit Cardiology at [address] [phone] Milagros Hernandez MD [facility] [place] [address] Scheduled Procedures Name Priority Associated Diagnoses Date/Ti me EGD, UPPER GI ENDOSCOPY (WRV U 2.09) Peptic stricture of esophagus documented as of this encounter Visit Diagnoses Not on filedocumented in this encounter Care Teams Vice President Underwriting Relationship Specialty Start Date End Date David Blue MD [address] [place] [address] PCP - General 04/01/10 02/02/19 documented as of this encounter
--- OUTSIDE RECORDS SUMMARY | 2024-05-19 20:41 | XMS_ITS | Encounter Summary ---
Author Organization [facility] Address [facility] [place] [address] Care Team Providers Care Rehab Aid Name Role Phone Ana Gillespie VAUGHN Primary Care Provider [phone] Encounter Details Date Type Department Care Team (Late st Contact Info) Description 03/01/2020 8:30 AM EDT - 03/01/2020 9:30 AM EDT Surgery [place] [address] David Dejesus MD [facility] [place] [address] EGD, UPPER GI ENDOSCOPY (WRVU 2.09) Social [...] the day after the procedure, use an nmka-zll-isiwzaj spray to numb your throat. Sucking on [...] occurs, please contact your Doctor. Please call [phone] before 8pm Mon-Fri with problems, questions or concerns. If you call after 8pm or on weekends, call the Hospital at [phone] and ask to speak to the Account Support Manager concrete pipe making machine operator and the bath mix operator will contact that person for you. When should you call for help? Call [phone] anytime you think you may need emergency [...] any problems. Where can you learn more? [facility] View your After Visit Summary and more online at [email or web address] If you would like to provide feedback about your hospital experience, please call the Office of Patient and Family Relations at . If you have received this After Visit Summary in error, please immediately return it in person to the department, or notify the [facility] Privacy Office by calling toll free at between the hours of 8AM and 5PM to arrange for our retrieval of the documents at no cost to you. Content Version: 12.2 ?? 8908-0170 [employer]. Care instructions adapted under license by [facility]. If you have questions about a medical condition or this instruction, always ask your healthcare professional. [employer] disclaims any warranty or liability for [...] occurs, please contact your Doctor. Please call [phone] before 8pm Mon-Fri with problems, questions or concerns. If you call after 8pm or on weekends, call the Hospital at [phone] and ask to speak to the Account Support Manager concrete pipe making machine operator and the bath mix operator will contact [...] any problems. Where can you learn more? [facility] View your After Visit Summary and more online at [email or web address] If you would like to provide [...] cost to you. Content Version: 12.2 ?? 9346-0002 [employer]. Care instructions adapted under license by [facility]. If you have questions about a medical condition or this instruction, always ask your healthcare professional. [employer] disclaims any warranty or liability for [...] meter kit. 1 each 0 12/14/2014 Insulin [place], Disposable, (BD INSULIN PEN NEEDLE UF [...] meter kit. 1 each 0 ??? Insulin [place], Disposable, (BD INSULIN PEN NEEDLE UF [...] 05/26/2024 1:10 PM EST [place] [address] Gavin Carrillo MD [facility] [place] [address] 06/05/2024 1:20 PM EST Office Visit Cardiology at [address] [address] Milagros Hernandez MD [facility] [place] [address] Scheduled Procedures Name Priority Associated Diagnoses Date/Ti [...] 8:42 AM EDT Upper Gi Endoscopy, Biopsy ([id number]) 03/01/2020 8:36 AM EDT needs egd/colonoscopy for GERD and screening colo rojelio Colonoscopy, Diagnostic (96932) 03/01/2020 8:36 AM EDT needs egd/colonoscopy for GERD and screening colo rojelio Upper GI Endoscopy, Diagnostic (69593) 03/01/2020 8:36 AM EDT needs egd/colonoscopy for GERD and screening colo rojelio UPPER GI ENDOSCOPY Routine 03/01/2020 7: 47 AM EDT COLONOSCOPY Routine 03/01/2020 7:22 AM EDT documented in this encounter Results * Surgical Pathology Report (03/01/2020 8:42 AM EDT) Final Diagnosis [id number] ? Location: 4T; EA06; A The signing pathologist has (i) examined the relevant preparation(s) for the specimen(s) and (ii) rendered or confirmed the diagnosis(es). . 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 B - Esophagus, 30 cm, biopsy: [place]ovington's esophagus, negative for dysplasia. C - Esophagus, 32 cm, biopsy: Covingotn's esophagus, negative for dysplasia. D - Esophagus, 34 cm, biopsy: [place]ovington's esophagus, negative for dysplasia. Electronically signed by: ??Jeniffer Hill MD Verified: ??03/10/2020 ?Pathologist Performed at: ??-[facility] Dept. of Pathology, [place], [place] SPECIMEN(S) SUBMITTED A - 28 cm, [...] cassette labeled D1. ??sns 03/10/2020 12:01 PM [facility] GI Biopsy 03/01/2020 8:42 AM EDT 03/01/2020 8:42 AM EDT GI Biopsy 03/01/2020 8:42 AM EDT 03/01/2020 8:42 AM EDT GI Biopsy 03/01/2020 8:42 AM EDT 03/01/2020 8:42 AM EDT GI Biopsy 03/01/2020 8:42 AM EDT 03/01/2020 8:42 AM EDT David Dejesus MD PATHOLOGY/CYTOLOGY ORDERABLES Performing Organization Address [facility] Co de Phone Number [facility] [place] [address] * Specimen to Pathology (03/01/2020 8:42 AM EDT) AP Specimen 03/01/2020 8:42 AM EDT 03/01/2020 8:42 AM EDT Narrative [facility] - 03/01/2020 8:42 AM EDT Specimen requisition ordered. ??Separate Pathology report to follow David Dejesus MD PATHOLOGY/CYTOLOGY ORDERABLES Performing Organization Address [facility] Co de Phone Number [facility] [place] [address] * Specimen to Pathology (03/01/2020 8:42 AM EDT) AP Specimen 03/01/2020 8:42 AM EDT 03/01/2020 8:42 AM EDT Narrative [facility] - 03/01/2020 8:42 AM EDT Specimen requisition ordered. ??Separate Pathology report to follow David Dejesus MD PATHOLOGY/CYTOLOGY ORDERABLES Performing Organization Address [facility] Co de Phone Number [facility] [place] [address] * Specimen to Pathology (03/01/2020 8:42 AM EDT) AP Specimen 03/01/2020 8:42 AM EDT 03/01/2020 8:42 AM EDT Narrative [facility] - 03/01/2020 8:42 AM EDT Specimen requisition ordered. ??Separate Pathology report to follow David Dejesus MD PATHOLOGY/CYTOLOGY ORDERABLES Performing Organization Address [facility] Co de Phone Number [facility] [place] [address] * Specimen to Pathology (03/01/2020 8:42 AM EDT) AP Specimen 03/01/2020 8:42 AM EDT 03/01/2020 8:42 AM EDT Narrative [facility] - 03/01/2020 8:42 AM EDT Specimen requisition ordered. ??Separate Pathology report to follow David Dejesus MD PATHOLOGY/CYTOLOGY ORDERABLES Performing Organization Address [facility] [place] [address] * UPPER GI ENDOSCOPY (03/01/2020 7:47 AM EDT) UPPER GI ENDOSCOPY [facility] Endoscopy Procedure Date: 03/01/2020 7:47 AM ? Patient Name: Jennifer Irving ? N: [id number] ? Date of : 1960 ? Age: 59 ? Order #: [id number] ? Instrument Name: [id number] ? Procedure: ? Upper GI endoscopy Indications: [...] * COLONOSCOPY (03/01/2020 7:22 AM EDT) COLONOSCOPY [facility] Endoscopy Procedure Date: 03/01/2020 7:22 AM ? Patient Name: Jennifer Irving ? Date of : 1960 ? Age: 59 ? Order #: [id number] ? Instrument Name: [id number] ? Procedure: ? Colonoscopy Indications: ? Screening [...] CRNA) documented in this encounter Care Teams Rehab Aid Relationship Specialty Start Date End Date Ana Gillespie APRN [address] [place] [address] PCP - General Family Medicine 02/03/19 documented as of this encounter
--- OUTSIDE RECORDS SUMMARY | 2024-05-19 20:41 | XMS_ITS | Encounter Summary ---
Author Organization [facility] [place] [address] Care Team Providers Care Records Supervisor Name Role Phone David Blue MD Primary Care Provider + [phone] Encounter Details Date Type Department Care Team (Late st Contact Info) Description 10/12/2018 Telephone [place] [phone] Mariela Jordan Social History Tobacco Use Types [...] - 10/12/2018 12:11 PM EDT Jennifer Irving [id number] Diagnosis: Farrell's Esophagus 1. Have you ever [...] [] YES [x] NO If Yes send inCycle message to [facility] ENDO DEVICE CHECK 4. Are you [...] 05/26/2024 1:10 PM [place] [address] Gavin Carrillo MD [facility] INTERVENTIONAL [place] [address] 06/05/2024 1:20 PM EST Office Visit Cardiology at [address] [address] Milagros Hernandez MD [facility] [place] [address] Scheduled Procedures Name Priority Associated Diagnoses Date/Ti me EGD, UPPER GI ENDOSCOPY (WRV U 2.09) Peptic stricture of esophagus documented as of this encounter Visit Diagnoses Not on filedocumented in this encounter Care Teams Records Supervisor Relationship Specialty Start Date End Date David Blue MD [address] [place] [address] PCP - General 04/01/10 02/02/19 documented as of this encounter
--- OUTSIDE RECORDS SUMMARY | 2024-05-19 20:41 | XMS_ITS | Encounter Summary ---
Author Organization [facility] [place] [address] Care Team Providers Care Nurse Coordinator Name Role Phone David Blue MD Primary Care Provider + [phone] Encounter Details Date Type Department Care Team (Late st Contact Info) Description 03/19/2016 Telephone [place] [phone] Angela Thompson Social History Tobacco Use Types Packs/Day Years Used Date Smoking Tobacco: Every Day Smokeless Tobacco: Never Sex and Gender Information Value Date Recorded Sex Assigned at Not on file Gender Identity Not on file Sexual Orientation Not on file documented as of this encounter Miscellaneous Notes * Telephone Encounter - Angela Palacios - 03/19/2016 9:36 AM EST Caller: pharmacy helper from [place], [place] Call for: MA's Reason for call: [...] 05/26/2024 1:10 PM EST [place] [phone] Gavin Carrillo MD [facility] [place] [address] 06/05/2024 1:20 PM EST Office Visit Cardiology at [address] [address] Milagros Hernandez MD [facility] [place] [address] Scheduled Procedures Name Priority Associated Diagnoses Date/Ti me EGD, UPPER GI ENDOSCOPY (WRV U 2.09) Peptic stricture of esophagus documented as of this encounter Visit Diagnoses Not on filedocumented in this encounter Care Teams Nurse Coordinator Relationship Specialty Start Date End Date David Blue MD [address] [place] [address] PCP - General 04/01/10 02/02/19 documented as of this encounter
--- OUTSIDE RECORDS SUMMARY | 2024-05-19 20:41 | XMS_ITS | Encounter Summary ---
[place] [address] Care Team Providers Care Instructor Of Education Name Role Phone David Blue MD Primary Care Provider + [phone] Reason for Visit * Reason Onset Date Comments Prior Authorization 05/20/2018 Encounter Details Date Type Department Care Team (Late st Contact Info) Description 05/20/2018 Telephone [place] [address] Yoko Marroquin CCMA Prior Authorization Social History [...] Prior Authorization 4L Gastroenterology / [place] [address] Subscriber Insurance: [place] Medicaid Phone: Fax: Physician: David Dejesus Return Pharmacy: [facility] Fax: Medication Requested: Pantoprazole Strength: 40mg Frequency: Twice Daily Disp.: 180 Refills: 3 Currently taking: Diagnosis for this medication: GERD ICD-10 code: K21.9 Prior medications trialed in this patient: Esomeprazole Medication: Outcome/Adverse Reactions: Treatment Failure Decision: PA not required Tracking number/Case number/Reference number: [id number] Effective date: Start: End: documented in this encounter Plan of Treatment Upcoming Encounters Date Type Department Care Team (Late st Contact Info) Description 05/26/2024 1:10 PM EST Appointment Radiology at [place] [phone] Gavin Carrillo MD [facility] INTERVENTION[place] [address] 06/05/2024 1:20 PM EST Office Visit Cardiology at [address] [address] Milagros Hernandez MD [facility] [place] [address] Scheduled Procedures Name Priority Associated Diagnoses Date/Ti me EGD, UPPER GI ENDOSCOPY (WRV U 2.09) Peptic stricture of esophagus documented as of this encounter Visit Diagnoses Not on filedocumented in this encounter Care Teams Instructor Of Education Relationship Specialty Start Date End Date David Blue MD [address] [place] [address] PCP - General 04/01/10 02/02/19 documented as of this encounter
--- OUTSIDE RECORDS SUMMARY | 2024-05-19 20:41 | XMS_ITS | Encounter Summary ---
Author Organization [facility] Address [facility] [place] [address] Care Team Providers Care Golf Course Manager Name Role Phone Ana Gillespie VAUGHN Primary Care Provider [phone] Reason for Referral * Consultation (Routine) - Duplicate Referral Specialty Diagnoses / Procedures Referred By Esperanza rodríguez Referred To Contact Gastroenterology Diagnoses Functional diarrhea David Dejesus MD [facility] [address] [facility] Endoscopy [address] [place] [phone] Referral ID Status Reason Start Date Expiration Date Visits Requested Visits Authorized [id number] Duplicate Referral Consult, Test & Treat 10/16/2019 10/15/2020 1 1 Encounter Details Date Type Department Care Team (Late Contact Info) Description 10/16/2019 Orders [place] [address] David Dejesus MD [facility] [place] [address] Functional diarrhea Social History Tobacco Use Types [...] 05/26/2024 1:10 PM EST App[place] [address] Gavin Carrillo MD [facility] [place] [address] 06/05/2024 1:20 PM EST Office Visit Cardiology at [address] [address] Milagros Hernandez MD [facility] [place] [address] Scheduled Procedures Name Priority Associated Diagnoses Date/Ti me EGD, UPPER GI ENDOSCOPY (WRV U 2.09) Peptic stricture of esophagus Scheduled Referrals Name Type Priority Associated Diagnoses Order Schedule Referral to Gastroenterology Outpatient Referral Routine Functional diarrhea Ordered: 10/16/2019 documented as of this encounter Visit Diagnoses Diagnosis Functional diarrhea documented in this encounter Care Teams Golf Course Manager Relationship Specialty Start Date End Date Ana Gillespie APRN [address] [place] [address] PCP - General Family Medicine 02/03/19 documented as of this encounter
--- OUTSIDE RECORDS SUMMARY | 2024-05-19 20:41 | XMS_ITS | Encounter Summary ---
Author Organization [facility] Address [facility] [place] [address] Care Team Providers Care Engineering Executive Name Role Phone David Blue MD Primary Care Provider + [phone] Encounter Details Date Type Department Care Team (Late st Contact Info) Description 07/22/2018 11:59 PM EDT Anesthesia [place] [phone] Vanessa Escalona MD [facility] [place] [address] Anesthesia Record Procedure Summary Procedure Name Responsible [...] Dejesus MD at [facility] ENDOSCOPY ??? PRO UPPER GI ENDOSCOPY, BIOPSY N/A 04/03/2014 UPPER GASTROINTESTINAL ENDOSCOPY,WITH BIOPSY SINGLE OR MULTIPLE performed by David Dejesus MDat [facility] ENDOSCOPY ??? PRO UPPER GI ENDOSCOPY, BIOPSY N/A 03/20/2016 EGD WITH BIOPSY performed by David Dejesus MD at [facility] ENDOSCOPY ??? PRO UPPER GI ENDOSCOPY, DIAGNOSTIC N/A 04/03/2014 EGD, UPPER GI ENDOSCOPY performed by David Dejesus MD at [facility] ENDOSCOPY Social History Tobacco Use [...] discussed with patient who. Plan discussed with PAYLOADER OPERATOR. PAT Staff Note documented in this encounter Plan of Treatment Upcoming Encounters Date Type Department Care Team (Late st Contact Info) Description 05/26/2024 1:10 PM [place] [address] Gavin Carrillo MD [facility] [place] [address] 06/05/2024 1:20 PM EST Office Visit Cardiology at [address] [address] Milagros Hernandez MD [facility] [place] [address] Scheduled Procedures Name Priority Associated Diagnoses Date/Ti me EGD, UPPER GI ENDOSCOPY (WRV U 2.09) Peptic stricture of esophagus documented as of this encounter Visit Diagnoses Not on filedocumented in this encounter Care Teams Engineering Executive Relationship Specialty Start Date End Date David Blue MD [address] [place] [address] PCP - General 04/01/10 02/02/19 documented as of this encounter
--- OUTSIDE RECORDS SUMMARY | 2024-05-19 20:41 | XMS_ITS | Encounter Summary ---
Author Organization [facility] Address [facility] [place] [address] Care Team Providers Care Mud Jack Operator Name Role Phone David Blue MD Primary Care Provider [phone] Encounter Details Date Type Department Care Team (Late st Contact Info) Description 09/23/2016 Ancillary Procedure Radiology Library at [facility] [place] [phone] Ana Gillespie APRN [address] [place] [address] Social History Tobacco Use Types [...] 05/26/2024 1:10 PM EST Appointment [place] [address] Gavin Carrillo MD [facility] INTERVENTIONAL RADIOLOGY [place], [place] [address] 06/05/2024 1:20 PM EST Office Visit Cardiology at [address] [address] Milagros Hernandez MD [facility] [place] [address] Scheduled Procedures Name Priority Associated Diagnoses Date/Ti me EGD, UPPER GI ENDOSCOPY (WRV U 2.09) Peptic stricture of esophagus documented as of this encounter Procedures Procedure Name Priority Date/Time Associated Diagnosis Comments FILM LIBRARY STORAGE ONLY MAMMO Routine 09/23/2016 12:00 AM EDT documented in this encounter Results * Film Library- Storage Only Mammo (09/23/2016 12:00 AM EDT) Narrative [facility] - 02/13/2019 8:42 AM EDT This exam is auto-finalizing. It's purpose is for storage only. Ana Gillespie APRN IMG FILM LIBRARY ORD ERABLES [place], [place] documented in this encounter Visit Diagnoses Not on filedocumented in this encounter Care Teams Mud Jack Operator Relationship Specialty Start Date End Date David Blue MD [address] [place] [address] PCP - General 04/01/10 02/02/19 documented as of this encounter
--- OUTSIDE RECORDS SUMMARY | 2024-05-19 20:41 | XMS_ITS | Encounter Summary ---
Author Organization [facility] [place] [address] Care Team Providers Care Software Support Analyst Name Role Phone David Blue MD Primary Care Provider [phone] Encounter Details Date Type Department Care Team (Late Contact Info) Description 07/06/2017 Telephone [place] [phone] Ami Mckinnon RN Social History Tobacco Use [...] personal issue. Call returned to Jennifer at [phone]. Spoke to Rogelio. Explained that Dr. Dejesus [...] 05/26/2024 1:10 PM EST [place] [address] Gavin Carrillo MD [facility] [place] [address] 06/05/2024 1:20 PM EST Office Visit Cardiology at [address] [address] Milagros Hernandez MD [facility] [place] [address] Scheduled Procedures Name Priority Associated Diagnoses Date/Ti me EGD, UPPER GI ENDOSCOPY (WRV U 2.09) Peptic stricture of esophagus documented as of this encounter Visit Diagnoses Not on filedocumented in this encounter Care Teams Software Support Analyst Relationship Specialty Start Date End Date David Blue MD [address] [place] [address] PCP - General 04/01/10 02/02/19 documented as of this encounter
--- OUTSIDE RECORDS SUMMARY | 2024-05-19 20:41 | XMS_ITS | Encounter Summary ---
Author Organization [facility] Marly petersen [place] [id number] Care Team Providers Care Failure Analysis Technician Name Role Phone David Blue MD Primary Care Provider [phone] Encounter Details Date Type Department Care Team (Late st Contact Info) Description 04/30/2016 Orders [place] [phone] David Dejesus MD [facility] [place] [address] Visit for screening mammogram Social History Tobacco [...] 05/26/2024 1:10 PM [place] [address] Gavin Carrillo MD [facility] [place] [address] 06/05/2024 1:20 PM EST Office Visit Cardiology at [address] [address] Milagros Hernandez MD [facility] [place] [address] Scheduled Procedures Name Priority Associated Diagnoses Date/Ti me EGD, UPPER GI ENDOSCOPY (WRV U 2.09) Peptic stricture of esophagus documented as of this encounter Visit Diagnoses Diagnosis Visit for screening mammogram Other screening mammogram documented in this encounter Care Teams Failure Analysis Technician Relationship Specialty Start Date End Date David Blue MD [address] [place] [address] PCP - General 04/01/10 02/02/19 documented as of this encounter
--- OUTSIDE RECORDS SUMMARY | 2024-05-19 20:41 | XMS_ITS | Encounter Summary ---
Author Organization [facility] Address [facility] [place] [address] Care Team Providers Care Relief Operator Name Role Phone David Blue MD Primary Care Provider [phone] Encounter Details Date Type Department Care Team (Late st Contact Info) Description 11/22/2018 11:15 AM EDT - 11/22/2018 11:45 AM EDT Surgery [place] [address] David Dejesus MD [facility] [place] [address] EGD WITH BIOPSY (WRVU 2.39) Social History [...] better as expected. Wednesday-Wednesday Same Day Endo [phone] Otherwise contact [phone] and ask to speak to the recreation teacher senior functional analyst Follow-up care is a fam part of [...] meter kit. 1 each 0 12/14/2014 Insulin [place], Disposable, (BD INSULIN PEN NEEDLE UF MINI) 31 x 07/23 NeedleIndications:Di abetes mellitus type 2, uncontrolled 1 Device by [facility].(Non-Drug; Combo Route) route 3 times [...] 05/26/2024 1:10 PM [place] [address] Gavin Carrillo MD [facility] [place] [address] 06/05/2024 1:20 PM EST Office Visit Cardiology at [address] [address] Milagros Hernandez MD [facility] [place] [address] Scheduled Procedures Name Priority Associated [...] PATHOLOGY/CYTOLOGY ORDERABLES [facility] [place] [address] * Surgical Pathology Report (11/22/2018 12:34 PM EDT) Final Diagnosis [id number] ? Location: 4T; EA06; A The signing [...] Nguyen MD Verified: ??11/23/2018 ?Pathologist Performed at: ??-[facility] [place] Dept. of Pathology, [place], [place] CLINICAL INFORMATION Specimen Submitted: A - [...] PATHOLOGY/CYTOLOGY ORDERABLES [facility] [place] [address] * Specimen to Pathology (11/22/2018 12:34 PM EDT) AP Specimen 11/22/2018 12:3 4 PM EDT 11/22/2018 12:34 PM EDT Narrative [facility] - 11/22/2018 12:34 PM EDT Specimen requisition ordered. ??Separate Pathology report to follow David Dejesus MD PATHOLOGY/CYTOLOGY ORDERABLES Performing Organization Address [facility] [place] [place] [address] * Specimen to Pathology (11/22/2018 12:34 PM EDT) AP Specimen 11/22/2018 12:3 4 PM EDT 11/22/2018 12:34 PM EDT Narrative [facility] - 11/22/2018 12:34 PM EDT Specimen requisition ordered. ??Separate Pathology report to follow David Dejesus MD PATHOLOGY/CYTOLOGY ORDERABLES Performing Organization Address [facility] [place] [address] * Specimen to Pathology (11/22/2018 12:34 PM EDT) AP Specimen 11/22/2018 12:3 4 PM EDT 11/22/2018 12:34 PM EDT Narrative [facility] - 11/22/2018 12:34 PM EDT Specimen requisition ordered. ??Separate Pathology report to follow David Dejesus MD PATHOLOGY/CYTOLOGY ORDERABLES Performing Organization Address [facility] [place] [place] [address] * Specimen to Pathology (11/22/2018 12:34 PM EDT) AP Specimen 11/22/2018 12:3 4 PM EDT 11/22/2018 12:34 PM EDT Narrative [facility] - 11/22/2018 12:34 PM EDT Specimen requisition ordered. ??Separate Pathology report to follow David Dejesus MD PATHOLOGY/CYTOLOGY ORDERABLES Performing Organization Address [facility] Co de Phone Number [facility] [place] [address] * UPPER GI ENDOSCOPY (11/22/2018 12:12 PM EDT) Pathologist [facility] UPPER GI ENDOSCOPY [facility] Endoscopy Procedure Date: 11/22/2018 12:12 PM ? Patient Name: Jennifer Irving ? Date of : 1960 ? Age: 58 ? Order #: [id number] ? Instrument Name: [id number] AUGIE ? Procedure: ? Upper GI endoscopy [...] SURGICAL ORD ERABLES Performing Organization Address [facility] de Phone Number PROVATION * (ABNORMAL) POCT Glucose (11/22/2018 10:58 AM EDT) Glucose, POC 277(H) 65 - 199 mg/dL [facility] Comment: Supplemental ranges: <140 mg/dL before meals <180 mg/dL all other times of the day Blood specimen (specimen) 11/22/2018 10:58 AM EDT 11/22/2018 10:58 AM EDT David Dejesus MD POINT OF CARE TEST ORDERABLES Performing Organization Address [facility] de Phone Number [facility] [place] [address] documented in this encounter Visit Diagnoses Not [...] CRNA) documented in this encounter Care Teams Relief Operator Relationship Specialty Start Date End Date David Blue MD [address] [place] [address] PCP - General 04/01/10 02/02/19 documented as of this encounter
--- OUTSIDE RECORDS SUMMARY | 2024-05-19 20:41 | XMS_ITS | Encounter Summary ---
Author Organization [facility] [place] [address] Care Team Providers Care Process Engineering Manager Name Role Phone David Blue MD Primary Care Provider [phone] Encounter Details Date Type Department Care Team (Late st Contact Info) Description 06/28/2018 Telephone [place] [address] Erin Lynn Social History Tobacco [...] - 06/28/2018 11:52 AM EST Jennifer Irving [id number] Diagnosis: EGD 1. Have you ever had [...] [] YES [x] NO If Yes send inTrafficCast message to [facility] ENDO DEVICE CHECK 4. Are [...] 05/26/2024 1:10 PM [place] [phone] Gavin Carrillo MD [facility] [place] [address] 06/05/2024 1:20 PM EST Office Visit Cardiology at [address] [address] Milagros Hernandez MD [facility] [place] [address] Scheduled Procedures Name Priority Associated Diagnoses Date/Ti me EGD, UPPER GI ENDOSCOPY (WRV U 2.09) Peptic stricture of esophagus documented as of this encounter Visit Diagnoses Not on filedocumented in this encounter Care Teams Process Engineering Manager Relationship Specialty Start Date End Date David Blue MD [address] [place] [address] PCP - General 04/01/10 02/02/19 documented as of this encounter
--- OUTSIDE RECORDS SUMMARY | 2024-05-19 20:41 | XMS_ITS | Encounter Summary ---
[place] [address] Care Team Providers Care Lockstitch Shoulder Joiner Name Role Phone David Blue MD Primary Care Provider + [phone] Reason for Visit * Reason Onset Date Comments Prior Authorization 09/27/2018 Encounter Details Date Type Department Care Team (Late st Contact Info) Description 09/27/2018 Telephone [place] [address] Francoise Vides CMA Prior Authorization Social History [...] Prior Authorization 4L Gastroenterology / [place] [address] ?? Subscriber Insurance: [place] Medicaid ?? Phone: . Fax: ? Physician: David Dejesus ? Return ?? Pharmacy: [facility] ? Medication Requested: pantoprazole ?? Strength: 40 mg Frequency: BID ?? Disp.: 180 Refills: 3 ?? Currently taking: no ?? Diagnosis for this medication: Farrell's w/ dysplasia, and GERD ?? ICD-10 code: ?? Prior medications trialed in this patient: Pantoprazole QD, esomperazole, and omeprazole ? Medication: Outcome/Adverse Reactions: treatment failure ?? Decision: approved ?? Tracking number/Case number/Reference number: [id number] ?? Effective date: ?? Start: End: 09/28/2019 documented in this encounter Plan of Treatment Upcoming Encounters Date Type Department Care Team (Late st Contact Info) Description 05/26/2024 1:10 PM EST Appointment Radiology at [place] [phone] Gavin Carrillo MD [facility] [place] [address] 06/05/2024 1:20 PM EST Office Visit Cardiology at [place] [phone] Milagros Hernandez MD [facility] [place] [address] Scheduled Procedures Name Priority Associated Diagnoses Date/Ti me EGD, UPPER GI ENDOSCOPY (WRV U 2.09) Peptic stricture of esophagus documented as of this encounter Visit Diagnoses Not on filedocumented in this encounter Care Teams Lockstitch Shoulder Joiner Relationship Specialty Start Date End Date David Blue MD [address] [place] [address] PCP - General 04/01/10 02/02/19 documented as of this encounter
--- OUTSIDE RECORDS SUMMARY | 2024-05-19 20:41 | XMS_ITS | Encounter Summary ---
Author Organization [facility] [place] [address] Care Team Providers Care Database Management System Specialist Name Role Phone David Blue MD Primary Care Provider [phone] Encounter Details Date Type Department Care Team (Late st Contact Info) Description 03/31/2016 Telephone [place] [phone] Francoise Vides CMA Social History Tobacco Use Types Packs/Day Years [...] 05/26/2024 1:10 PM [place] [phone] Gavin Carrillo MD [facility] [place] [address] 06/05/2024 1:20 PM EST Office Visit Cardiology at [address] [address] Milagros Hernandez MD [facility] [place] [address] Scheduled Procedures Name Priority Associated Diagnoses Date/Ti me EGD, UPPER GI ENDOSCOPY (WRV U 2.09) Peptic stricture of esophagus documented as of this encounter Visit Diagnoses Not on filedocumented in this encounter Care Teams Database Management System Specialist Relationship Specialty Start Date End Date David Blue MD [address] [place] [address] PCP - General 04/01/10 02/02/19 documented as of this encounter
--- OUTSIDE RECORDS SUMMARY | 2024-05-19 20:41 | XMS_ITS | Encounter Summary ---
Author Organization [facility] Address [facility] [place] [address] Care Team Providers Care Track Oiler Name Role Phone David Blue MD Primary Care Provider + [phone] Encounter Details Date Type Department Care Team (Late st Contact Info) Description 11/22/2018 12:20 PM EDT Anesthesia Event [place] [address] Keyana Short MD [facility] [place] [address] Alexandrea Wang CRNA [facility] [place] [address] Anesthesia Record Procedure Summary Procedure Name Responsible Anesthesiologist Anesthesia Start Time Anesthesia Stop Time EGD WITH BIOPSY (WRVU 2.39) (Trunk) Keyana Short MD 11/22/18 1220 11/22/18 1253 Events Date Time Event Comment 11/22/2018 1218 1220 AN Verify 1220 Start 1220 An Start Data 1223 Break/Relief In MARIA DE JESUS A [facility] C Y[facility], HEATING ELEMENT WINDER 1225 An Induction 1227 Anesthesia Ready 1228 [...] basilic vein (medial side of arm), right; ppng-uir-lauceu catheter system; 20 gauge; Gertrudis Cintron RN; [...] All Anesthesia Providers: Anesthesiologist: Keyana Short MD HEATING ELEMENT WINDER: Alexandrea Wang CRNA Vitals Value Taken Time [...] [place] [address] Gavin Carrillo MD [facility] [place] [address] 06/05/2024 1:20 PM EST Office Visit Cardiology at [address] [address] Milagros Hernandez MD [facility] [place] [address] Scheduled Procedures Name Priority Associated [...] hr documented in this encounter Care Teams Track Oiler Relationship Specialty Start Date End Date David Blue MD [address] [place] [address] PCP - General 04/01/10 02/02/19 documented as of this encounter
--- OUTSIDE RECORDS SUMMARY | 2024-05-19 20:41 | XMS_ITS | Encounter Summary ---
Author Organization [facility] [place] [address] Care Team Providers Care Traffic Court Magistrate Name Role Phone Ana Gillespie APRN Primary Care Provider Encounter Details Date Type Department Care Team (Late st Contact Info) Description 09/16/2020 Orders Only G[place] [address] David Dejesus MD [facility] [place] [address] Social History Tobacco Use Types Packs/Day Years [...] 1:10 PM EST Appointment [place] [address] Gavin Carrillo MD [facility] [place] [address] 06/05/2024 1:20 PM EST Office Visit Cardiology at [address] [address] Milagros Hernandez MD [facility] [place] [address] Scheduled Procedures Name Priority Associated Diagnoses Date/Ti me EGD, UPPER GI ENDOSCOPY (WRV U 2.09) Peptic stricture of esophagus documented as of this encounter Visit Diagnoses Not on filedocumented in this encounter Care Teams Traffic Court Magistrate Relationship Specialty Start Date End Date Ana Gillespie APRN [address] [place] [address] PCP - General Family Medicine 02/03/19 documented as of this encounter
--- OUTSIDE RECORDS SUMMARY | 2024-05-19 20:41 | XMS_ITS | Encounter Summary ---
Author Organization [facility] Address 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's esophagus last 04/03/14 Procedures PRO UPPER GI ENDOSCOPY, DIAGNOSTIC PRO COLONOSCOPY, DIAGNOSTIC EGD, UPPER GI ENDOSCOPY Referral ID Status Reason Start Date Expiration Date Visits Re quested Visits Authorized [id number] 1 1 Encounter Details Date Type Department Care Team (Latest Contact Info) Description 03/20/2016 9:21 AM EST - 03/20/2016 1:24 PM EST Hospital Encounter [place] [address] David Dejesus MD [facility] [place] [address] Discharge Disposition: Home Social History Tobacco Use [...] or concerns, please call us Wednesday-Wednesday Clinic [phone] 8a-5p Same Day Endo [phone] 7a-8p Nights and weekends contact [phone] and ask to speak to the corporate meeting planner weapons mechanic. Follow up care is a fam part [...] meter kit. 1 each 0 12/14/2014 Insulin [place], Disposable, (BD INSULIN PEN NEEDLE UF [...] 05/26/2024 1:10 PM EST [place] [address] Gavin Carrillo MD [facility] [address] [place] [address] 06/05/2024 1:20 PM EST Office Visit Cardiology at [address] [address] Milagros Hernandez MD [facility] [place] [address] Scheduled Procedures Name Priority Associated Diagnoses Date/Ti [...] Report (03/20/2016 12:43 PM EST) Final Diagnosis [id number] ?Location: 4T; EA07; A The signing pathologist [...] ing: (T1) ??peters 03/24/2016 5:02 PM EST [facility] GI Biopsy 03/20/2016 [...] PM EST David Dejesus MD PATHOLOGY/CYTOLOGY ORDERABLES [facility] [place] [address] * Specimen to Pathology (surgical or derm) (03/20/2016 12:43 PM EST) AP Specimen 03/20/2016 12:4 3 PM EST 03/20/2016 12:43 PM EST Narrative [facility] - 03/20/2016 12:43 PM EST Specimen requisition ordered. ??Separate Pathology report to follow David Dejesus MD PATHOLOGY/[place] [address] * Specimen to Pathology (surgical or derm) (03/20/2016 12:43 PM EST) AP Specimen 03/20/2016 12:4 3 PM EST 03/20/2016 12:43 PM EST Narrative [facility] - 03/20/2016 12:43 PM EST Specimen requisition ordered. ??Separate Pathology report to follow David Dejesus MD PATHOLOGY/CYTOLOGY ORDERABLES Performing Organization Address City/[facility]/[place] [address] * Specimen to Pathology (surgical or derm) (03/20/2016 12:43 PM EST) AP Specimen 03/20/2016 12:4 3 PM EST 03/20/2016 12:43 PM EST Narrative [facility] - 03/20/2016 12:43 PM EST Specimen requisition ordered. ??Separate Pathology report to follow David Dejesus MD PATHOLOGY/CYTOLOGY ORDERABLES Performing Organization Address City/[facility]/[place] [address] * Specimen to Pathology (surgical or derm) (03/20/2016 12:43 PM EST) AP Specimen 03/20/2016 12:4 3 PM EST 03/20/2016 12:43 PM EST Narrative [facility] - 03/20/2016 12:43 PM EST Specimen requisition ordered. ??Separate Pathology report to follow David Dejesus MD PATHOLOGY/CYTOLOGY ORDERABLES Performing Organization Address [facility]/[place] [address] * Specimen to Pathology (surgical or derm) (03/20/2016 12:43 PM EST) AP Specimen 03/20/2016 12:4 3 PM EST 03/20/2016 12:43 PM EST Narrative [facility] - 03/20/2016 12:43 PM EST Specimen requisition ordered. ??Separate Pathology report to follow David Dejesus MD PATHOLOGY/CYTOLOGY ORDERABLES Performing Organization Address [facility] [place] [place] [address] * Specimen to Pathology (surgical or derm) (03/20/2016 12:43 PM EST) AP Specimen 03/20/2016 12:4 3 PM EST 03/20/2016 12:43 PM EST Narrative [facility] - 03/20/2016 12:43 PM EST Specimen requisition ordered. ??Separate Pathology report to follow David Dejesus MD PATHOLOGY/CYTOLOGY ORDERABLES Performing Organization Address [facility]/[place] [address] * COLONOSCOPY (03/20/2016 11:32 AM EST) COLONOSCOPY [facility] Endoscopy Procedure Date: 03/20/2016 11:32 AM ? Patient Name: Jennifer Irving ? Date of : 1960 ? Age: 55 ? Order #: [id number] ? Instrument Name: [id number] ? Procedure: ? Colonoscopy Indications: ? Screening for colorectal malignant ? neoplasm Providers: ? David Dejesus MD, Geronimo Joyner ? MD Valerie, Tapan Chong RN, ? Theodora Farrell, Building Construction Contractor Referring : ?David Blue MD Medicines: ? [...] (03/20/2016 11:31 AM EST) UPPER GI ENDOSCOPY [facility] Endoscopy Procedure Date: 03/20/2016 11:31 AM ? Patient Name: Jennifer Irving ? N: [id number] ? Date of : 1960 ? Age: 55 ? Order #: [id number] ? Instrument Name: [id number] ? Procedure: ? Upper GI endoscopy Indications: ? Follow-up of Farrell's esophagus, ? Surveillance for malignancy due to ? 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 David Dejesus MD, Geronimo Joyner ? MD Valerie, Eligio Sadler RN, Valerie ? Lindsey Blanchard MD: ?aDvid Blue MD Medicines: ? Monitored Anesthesia Care [...] care under the ? supervision of a RHEUMATOLOGIST was determined ? to be medically necessary [...] Glucose, POC 243(H) 65 - 199 mg/dL [facility] Comment: Supplemental ranges: <140 mg/dL before meals <180 mg/dL all other times of the day Blood specimen (specimen) 03/20/2016 10:54 AM EST 03/20/2016 10:54 AM EST David Dejesus MD POINT [place] [address] * (ABNORMAL) POCT Fingerstick Glucose (03/20/2016) Glucose, [...] CRNA) documented in this encounter Care Teams Communications Associate Relationship Specialty Start Date End Date David Blue MD [address] [place] [address] PCP - General 04/01/10 02/02/19 documented as of this encounter
--- OUTSIDE RECORDS SUMMARY | 2024-05-19 20:41 | XMS_ITS | Encounter Summary ---
Author Organization [facility] Address [facility] [place] [address] Care Team Providers Care Senior Engineering Manager Name Role Phone David Blue MD Primary Care Provider [phone] Reason for Visit * Reason Onset Date Comments Medication Refill 09/26/2018 Encounter Details Date Type Department Care Team (Late st Contact Info) Description 09/26/2018 Refill Gastroenterology at [place] [phone] Francoise Vides CMA Social History Tobacco Use [...] 05/26/2024 1:10 PM EST Appointment Radiology at [place] [phone] Gavin Carrillo MD [facility] [place] [address] 06/05/2024 1:20 PM EST Office Visit Cardiology at [address] [address] Milagros Hernandez MD [facility] [place] [address] Scheduled Procedures Name Priority Associated Diagnoses Date/Ti me EGD, UPPER GI ENDOSCOPY (WRV U 2.09) Peptic stricture of esophagus documented as of this encounter Visit Diagnoses Not on filedocumented in this encounter Care Teams Senior Engineering Manager Relationship Specialty Start Date End Date David Blue MD [address] [place] [address] PCP - General 04/01/10 02/02/19 documented as of this encounter
--- OUTSIDE RECORDS SUMMARY | 2024-05-19 20:41 | XMS_ITS | Encounter Summary ---
[place] [address] Care Team Providers Care Counter Clerk [employer] Equipment [employer] Name Role Phone David Blue MD Primary Care Provider [phone] Reason for Visit * Reason Onset Date Comments Prior Authorization 09/22/2017 Encounter Details Date Type Department Care Team (Late st Contact Info) Description 09/22/2017 Telephone [place] [address] Francoise Vides CMA Prior Authorization Social History [...] Prior Authorization 4L Gastroenterology / [place] [address] Subscriber Insurance: [place] Medicaid Phone: . Fax: Physician: David Dejesus Return Pharmacy: [facility] Medication Requested: pantoprazole Strength: 40 mg Frequency: BID Disp.: 180 Refills: 3 Currently taking: no Diagnosis for this medication: Farrell's w/ dysplasia, and GERD ICD-10 code: Prior medications trialed in this patient: Pantoprazole QD, esomperazole, and omeprazole Medication: Outcome/Adverse Reactions: treatment failure Decision: approved Tracking number/Case number/Reference number: [id number] Effective date: Start: 09/22/2017 End: 09/22/2018 documented in this encounter Plan of Treatment Upcoming Encounters Date Type Department Care Team (Late st Contact Info) Description 05/26/2024 1:10 PM EST Appointment [place] [phone] Gavin Carrillo MD [facility] [place] [address] 06/05/2024 1:20 PM EST Office Visit Cardiology at [address] [address] Milagros Hernandez MD [facility] [place] [address] Scheduled Procedures Name Priority Associated Diagnoses Date/Ti me EGD, UPPER GI ENDOSCOPY (WRV U 2.09) Peptic stricture of esophagus documented as of this encounter Visit Diagnoses Not on filedocumented in this encounter Care Teams Counter Clerk [employer] Relationship Specialty Start Date End Date David Blue MD [address] [place] [address] PCP - General 04/01/10 02/02/19 documented as of this encounter
--- OUTSIDE RECORDS SUMMARY | 2024-05-19 20:41 | XMS_ITS | Encounter Summary ---
Author Organization [facility] Address [facility] [place] [address] Care Team Providers Care Comb Tender Name Role Phone Ana Gillespie VAUGHN Primary Care Provider [phone] Encounter Details Date Type Department Care Team (Late st Contact Info) Description 12/28/2019 Telephone [place] [address] Rober Tobin Social History Tobacco [...] 05/26/2024 1:10 PM EST [place] [address] Gavin Carrillo MD [facility] [place] [address] 06/05/2024 1:20 PM EST Office Visit Cardiology at [address] [address] Milagros Hernandez MD [facility] [address] Scheduled Procedures Name Priority Associated Diagnoses Date/Ti me EGD, UPPER GI ENDOSCOPY (WRV U 2.09) Peptic stricture of esophagus documented as of this encounter Visit Diagnoses Not on filedocumented in this encounter Care Teams Comb Tender Relationship Specialty Start Date End Date Ana Gillespie APRN [address] [place] [address] PCP - General Family Medicine 02/03/19 documented as of this encounter
--- OUTSIDE RECORDS SUMMARY | 2024-05-19 20:41 | XMS_ITS | Encounter Summary ---
Author Organization [facility] Address [facility] [place] [address] Care Team Providers Care Debeaker Name Role Phone David Blue MD Primary Care Provider [phone] Encounter Details Date Type Department Care Team (Late st Contact Info) Description 08/05/2017 Orders Only Gastroenterology at [place] [phone] David Dejesus MD [facility] [place] [address] Social History Tobacco Use Types Packs/Day Years [...] 05/26/2024 1:10 PM [place] [address] Gavin Carrillo MD [facility] [place] [address] 06/05/2024 1:20 PM EST Office Visit Cardiology at [address] [address] Milagros Hernandez MD [facility] [place] [address] Scheduled Procedures Name Priority Associated Diagnoses Date/Ti me EGD, UPPER GI ENDOSCOPY (WRV U 2.09) Peptic stricture of esophagus documented as of this encounter Visit Diagnoses Not on filedocumented in this encounter Care Teams Debeaker Relationship Specialty Start Date End Date David Blue MD [address] [place] [address] PCP - General 04/01/10 02/02/19 documented as of this encounter
--- OUTSIDE RECORDS SUMMARY | 2024-05-19 20:41 | XMS_ITS | Encounter Summary ---
Author Organization [facility] Address [facility] [place] [address] Care Team Providers Care Script Developer Name Role Phone David Blue MD Primary Care Provider [phone] Encounter Details Date Type Department Care Team (Late st Contact Info) Description 06/22/2018 Telephone Gastroenterology at [place], [place] [phone] Erin Lynn Social History Tobacco Use Types [...] 05/26/2024 1:10 PM EST [place] [address] Gavin Carrillo MD [facility] DR INTERVENTIONAL [place] [address] 06/05/2024 1:20 PM EST Office Visit Cardiology at [address] [address] Milagros Hernandez MD [facility] [place] [address] Scheduled Procedures Name Priority Associated Diagnoses Date/Ti me EGD, UPPER GI ENDOSCOPY (WRV U 2.09) Peptic stricture of esophagus documented as of this encounter Visit Diagnoses Not on filedocumented in this encounter Care Teams Script Developer Relationship Specialty Start Date End Date David Blue MD [address] [place] [address] PCP - General 04/01/10 02/02/19 documented as of this encounter
--- OUTSIDE RECORDS SUMMARY | 2024-05-19 20:41 | XMS_ITS | Encounter Summary ---
Author Organization [facility] Address [facility] [place] [address] Care Team Providers Care Note Teller Name Role Phone Ana Gillespie APRN Primary Care Provider [phone] Encounter Details Date Type Department Care Team (Late st Contact Info) Description 03/01/2020 8:32 AM EDT Anesthesia Event [place] [phone] Ute Novak MD [facility] DR [place] [address] Anesthesia Record Procedure Summary Procedure Name Responsible [...] 0723; metacarpal vein (top of hand), right; zddz-kzy-yvjcte catheter system; 20 gauge; gaurav rn; distraction, [...] Procedure Summary Date: 03/01/20 Room / Location: [facility] ENDO 2 / [facility] ENDOSCOPY Anesthesia Start: 831 Anesthesia Stop: 923 Procedures: EGD, UPPER GI ENDOSCOPY (N/A Trunk) COLONOSCOPY, DIAGNOSTIC (N/A Trunk) UPPER GASTROINTESTINAL ENDOSCOPY,WITH BIOPSY SINGLE OR MULTIPLE (WRVU 2.49) (N/A Esophagus) Diagnosis: (needs egd/colonoscopy for GERD and screening colo rojelio) Surgeon: David Dejesus MD Responsible Provider: Ute Novak MD Anesthesia Type: MAC ASA Status: 3 All Anesthesia Providers: Anesthesiologist: Ute Novak MD BACKUP OPERATOR: Chiquita Felix CRNA Vitals Value Taken [...] David Dejesus MD at [facility] ENDOSCOPY ??? PRO UPPER GI ENDOSCOPY, BIOPSY N/A 04/03/2014 UPPER GASTROINTESTINAL ENDOSCOPY,WITH BIOPSY SINGLE OR MULTIPLE performed by David Dejesus MDat [facility] ENDOSCOPY ??? PRO UPPER GI ENDOSCOPY, BIOPSY N/A 03/20/2016 EGD WITH BIOPSY performed by David Dejesus MD at [facility] ENDOSCOPY ??? PRO UPPER GI ENDOSCOPY, BIOPSY N/A 11/22/2018 EGD WITH BIOPSY (WRVU 2.49) performed by David Dejesus MD at [facility] ENDOSCOPY ??? PRO UPPER GI ENDOSCOPY, DIAGNOSTIC N/A 04/03/2014 EGD, UPPER GI ENDOSCOPY performed by David Dejesus MD at [facility] ENDOSCOPY Social History Tobacco Use ??? Smoking [...] risks discussed with patient. Plan discussed with BACKUP OPERATOR and attending. PAT Clinic Note documented in this encounter Plan of Treatment Upcoming Encounters Date Type Department Care Team (Late st Contact Info) Description 05/26/2024 1:10 PM EST Appointment Radiology at [place] [phone] Gavin Carrillo MD [facility] [place] [address] 06/05/2024 1:20 PM EST Office Visit Cardiology at [address] [phone] Milagros Hernandez MD [facility] [place] [address] Scheduled Procedures Name Priority Associated Diagnoses Date/Ti [...] mL/hr documented in this encounter Care Teams Note Teller Relationship Specialty Start Date End Date Ana Gillespie APRN [address] [place] [address] PCP - General Family Medicine 02/03/19 documented as of this encounter
--- OUTSIDE RECORDS SUMMARY | 2024-05-19 20:41 | XMS_ITS | Encounter Summary ---
Author Organization [facility] [place] [address] Care Team Providers Care Manager Warehouse Name Role Phone David Blue MD Primary Care Provider [phone] Encounter Details Date Type Department Care Team (Late st Contact Info) Description 09/21/2017 Tele[place] [address] Ami Mckinnon RN Social History [...] 05/26/2024 1:10 PM [place] [address] Gavin Carrillo MD [facility] [address] INTERVENTION[place] [address] 06/05/2024 1:20 PM EST Office Visit Cardiology at [address] [phone] Milagros Hernandez MD [facility] [place] [address] Scheduled Procedures Name Priority Associated Diagnoses Date/Ti me EGD, UPPER GI ENDOSCOPY (WRV U 2.09) Peptic stricture of esophagus documented as of this encounter Visit Diagnoses Not on filedocumented in this encounter Care Teams Manager Warehouse Relationship Specialty Start Date End Date David Blue MD [address] [place] [address] PCP - General 04/01/10 02/02/19 documented as of this encounter
--- OUTSIDE RECORDS SUMMARY | 2024-05-19 20:41 | XMS_ITS | Encounter Summary ---
Author Organization [facility] Address [facility] [place] [address] Care Team Providers Care Chief Creative Officer Name Role Phone Ana Gillespie APRN Primary Care Provider [phone] Reason for Visit * Reason Onset Date Comments Medication Refill 11/13/2019 Encounter Details Date Type Department Care Team (Late st Contact Info) Description 11/13/2019 Refill Gastroenterology at [place] [phone] David Dejesus MD [facility] [place] [address] Social History Tobacco Use Types Packs/Day Years [...] 05/26/2024 1:10 PM EST Appoint[place] [address] Gavin Carrillo MD [facility] [place] [address] 06/05/2024 1:20 PM EST Office Visit Cardiology at [address] [phone] Milagros Hernandez MD [facility] [place] [address] Scheduled Procedures Name Priority Associated Diagnoses Date/Ti me EGD, UPPER GI ENDOSCOPY (WRV U 2.09) Peptic stricture of esophagus documented as of this encounter Visit Diagnoses Not on filedocumented in this encounter Care Teams Chief Creative Officer Relationship Specialty Start Date End Date Ana Gillespie APRN [address] [place] [address] PCP - General Family Medicine 02/03/19 documented as of this encounter
--- OUTSIDE RECORDS SUMMARY | 2024-05-19 20:41 | XMS_ITS | Encounter Summary ---
Author Organization [facility] [place] [address] Care Team Providers Care Bow String Maker Name Role Phone David Blue MD Primary Care Provider [phone] Reason for Visit * Reason Onset Date Comments Prior Authorization 03/12/2016 Encounter Details Date Type Department Care Team (Late st Contact Info) Description 03/12/2016 Telephone Gastroenterology at [facility] [place] [address] Francoise Vides CMA Prior Authorization Social History [...] 05/26/2024 1:10 PM EST Appointment [place] [address] Gavin Carrillo MD [facility] [place]ION[place] [address] 06/05/2024 1:20 PM EST Office Visit Cardiology at [address] [phone] Milagros Hernandez MD [facility] [place] [place] [address] Scheduled Procedures Name Priority Associated Diagnoses Date/Ti me EGD, UPPER GI ENDOSCOPY (WRV U 2.09) Peptic stricture of esophagus documented as of this encounter Visit Diagnoses Not on filedocumented in this encounter Care Teams Bow String Maker Relationship Specialty Start Date End Date David Blue MD [address] [place] [address] PCP - General 04/01/10 02/02/19 documented as of this encounter
--- OUTSIDE RECORDS SUMMARY | 2024-05-19 20:41 | XMS_ITS | Encounter Summary ---
Author Organization [facility] Address [facility] [place] [address] Care Team Providers Care Senior Foreman Name Role Phone Ana Gillespie APRN Primary Care Provider [phone] Reason for Visit * Reason Onset Date Comments Medication Refill 09/08/2019 Encounter Details Date Type Department Care Team (Late st Contact Info) Description 09/08/2019 Refill Gastroenterology at [place] [phone] David Dejesus MD [facility] [place] [address] Social History Tobacco Use Types Packs/Day Years [...] 05/26/2024 1:10 PM [place] [address] Gavin Carrillo MD [facility] [place] [address] 06/05/2024 1:20 PM EST Office Visit Cardiology at [address] [phone] Milagros Hernandez MD [facility] [address] Scheduled Procedures Name Priority Associated Diagnoses Date/Ti me EGD, UPPER GI ENDOSCOPY (WRV U 2.09) Peptic stricture of esophagus documented as of this encounter Visit Diagnoses Not on filedocumented in this encounter Care Teams Senior Foreman Relationship Specialty Start Date End Date Ana Gillespie APRN [address] [place] [address] PCP - General Family Medicine 02/03/19 documented as of this encounter
--- OUTSIDE RECORDS SUMMARY | 2024-05-19 20:41 | XMS_ITS | Encounter Summary ---
Author Organization [facility] Address [facility] [place] [address] Care Team Providers Care Day Camp Unit Leader Name Role Phone David Blue MD Primary Care Provider [phone] Encounter Details Date Type Department Care Team (Latest Contact Info) Description 11/22/2018 10:02 AM EDT - 11/22/2018 1:36 PM EDT Hospital Encounter [place] [address] David Dejesus MD [facility] [place] [address] Discharge Disposition: Home Social History Tobacco Use [...] better as expected. Wednesday-Wednesday Same Day Endo [phone] Otherwise contact [phone] and ask to speak to the staff development manager crown ironer Follow-up care is a afm part of your treatment and safety. Be [...] 05/26/2024 1:10 PM EST Appointment [place] [address] Gavin Carrillo MD [facility] [place] [address] 06/05/2024 1:20 PM EST Office Visit Cardiology at [address] [address] Milagros Hernandez MD [facility] [place] [address] Scheduled Procedures Name Priority Associated [...] 3 PM EDT 11/22/2018 12:43 PM EDT [facility] LABORATORY - 11/22/2018 12:43 PM EDT Specimen requisition ordered. ??Separate Pathology report to follow David Dejesus MD PATHOLOGY/CYTOLOGY ORDERABLES [facility] [place] [address] * Surgical Pathology Report (11/22/2018 12:34 PM EDT) Final Diagnosis [id number] ? Location: 4T; EA06; A The signing [...] Nguyen MD Verified: ??11/23/2018 ?Pathologist Performed at: ??-[facility] Dept. of Pathology, [place], [place] CLINICAL INFORMATION Specimen Submitted: A - [...] labeled E1. ??shb 11/23/2018 2:35 PM EDT [facility] GI Biopsy 11/22/2018 12:3 4 PM EDT 11/22/2018 12:34 PM EDT GI Biopsy 11/22/2018 12:3 4 PM EDT 11/22/2018 12:34 PM EDT GI Biopsy 11/22/2018 12:3 4 PM EDT 11/22/2018 12:34 PM EDT GI Biopsy 11/22/2018 12:3 4 PM EDT 11/22/2018 12:34 PM EDT GI Biopsy 11/22/2018 12:3 4 PM EDT 11/22/2018 12:34 PM EDT David Dejesus MD PATHOLOGY/CYTOLOGY ORDERABLES [facility] [place] [address] * Specimen to Pathology (11/22/2018 12:34 PM EDT) AP Specimen 11/22/2018 12:3 4 PM EDT 11/22/2018 12:34 PM EDT Narrative [facility] - 11/22/2018 12:34 PM EDT Specimen requisition ordered. ??Separate Pathology report to follow David Dejesus MD PATHOLOGY/CYTOLOGY ORDERABLES Performing Organization Address [facility]/[place] [address] * Specimen to Pathology (11/22/2018 12:34 PM EDT) AP Specimen 11/22/2018 12:3 4 PM EDT 11/22/2018 12:34 PM EDT Narrative [facility] - 11/22/2018 12:34 PM EDT Specimen requisition ordered. ??Separate Pathology report to follow David Dejesus MD PATHOLOGY/CYTOLOGY ORDERABLES Performing Organization Address [facility] [place] [address] * Specimen to Pathology (11/22/2018 12:34 PM EDT) AP Specimen 11/22/2018 12:3 4 PM EDT 11/22/2018 12:34 PM EDT Narrative [facility] - 11/22/2018 12:34 PM EDT Specimen requisition ordered. ??Separate Pathology report to follow David Dejesus MD PATHOLOGY/CYTOLOGY ORDERABLES Performing Organization Address [facility] [place] [address] * Specimen to Pathology (11/22/2018 12:34 PM EDT) AP Specimen 11/22/2018 12:3 4 PM EDT 11/22/2018 12:34 PM EDT Narrative [facility] - 11/22/2018 12:34 PM EDT Specimen requisition ordered. ??Separate Pathology report to follow David Dejesus MD PATHOLOGY/CYTOLOGY ORDERABLES Performing Organization Address [facility]/[place] [address] * UPPER GI ENDOSCOPY (11/22/2018 12:12 PM EDT) UPPER GI ENDOSCOPY [facility] Endoscopy Procedure Date: 11/22/2018 12:12 PM ? Patient Name: Jennifer Irving ? Date of : 1960 ? Age: 58 ? Order #: [id number] ? Instrument Name: [id number] AUGIE ? Procedure: ? Upper GI endoscopy [...] GENERAL SURGICAL ORD ERABLES Performing Organization Address [facility] de Phone Number PROVATION * (ABNORMAL) POCT Glucose (11/22/2018 10:58 AM EDT) Glucose, POC 277(H) 65 - 199 mg/dL [facility] Comment: Supplemental ranges: <140 mg/dL before meals <180 mg/dL all other times of the day Blood specimen (specimen) 11/22/2018 10:58 AM EDT 11/22/2018 10:58 AM EDT David Dejesus MD POINT OF CARE TEST ORDERABLES Performing Organization Address [facility] de Phone Number [facility] [place] [address] documented in this encounter Visit Diagnoses Not [...] CRNA) documented in this encounter Care Teams Day Camp Unit Leader Relationship Specialty Start Date End Date David Blue MD [address] [place] [address] PCP - General 04/01/10 02/02/19 documented as of this encounter
--- OUTSIDE RECORDS SUMMARY | 2024-05-19 20:42 | XMS_ITS | Encounter Summary ---
Author Organization [facility] Address [facility] [place] [address] Care Team Providers Care Director Engineering Name Role Phone Unavailable Primary Care Provider Unavailabl e Encounter Details Date Type Department Care Team (Late st Contact Info) Description 03/01/2009 Ancillary Procedure Radiology Library at [facility] [place] [phone] Ana Gillespie APRN [address] [place], [place] [address] Social History Tobacco Use Types Packs/Day Years Used Date Smoking Tobacco: Never Assessed Sex and Gender Information Value Date Recorded Sex Assigned at Not on file Gender Identity Not on file Sexual Orientation Not on file documented as of this encounter Plan of Treatment Upcoming Encounters Date Type Department Care Team (Late st Contact Info) Description 05/26/2024 1:10 PM EST Appointment [place] [phone] Gavin Carrillo MD [facility] INTERVENTIONAL RADIOLOGY [place], [place] [phone] 06/05/2024 1:20 PM EST Office Visit Cardiology at [address] [address] Milagros Hernandez MD [facility] CARDIOLOGY [place], [place] [phone] Scheduled Procedures Name Priority Associated Diagnoses Date/Ti [...] FILM LIBRARY ORD ERABLES Performing Organization Address City/State/[facility] Co de Phone Number QUIRINO [place], [place] documented in this encounter Visit Diagnoses Not on filedocumented in this encounter
--- OUTSIDE RECORDS SUMMARY | 2024-05-19 20:42 | XMS_ITS | Encounter Summary ---
Author Organization [facility] Address [address] [place] [address] Care Team Providers Care Forest Manager Name Role Phone Unavailable Primary Care Provider Unavailabl e Encounter Details Date Type Department Care Team (Late st Contact Info) Description 07/12/2009 Results Only [facility] Laboratory Services - [facility] ([facility]) [address], [place] [id number] Sergey Kraus, [address] [facility] [address] [place] [address] Social History Tobacco Use Types [...] ? IRVING, JENNIFER ? Accession #: ? [id number] ? : ? 1960 (Age: 49) ??F [...] and reactive ?? changes. ? Comment: ? Field Installer portions of this case were reviewed at the intradepartmental consultation conference. ??(Dr. Urena)/[facility] ? Document reviewed and electronically signed [...] submitted entirely as (B). ? [facility] fixative labelled Irving, Jennifer and #3 biopsy ?? distal esophagus are three kirby-pink soft tissues, each averaging 0.3 x 0.3 x ?? 0.2 cm. ??The specimen is submitted entirely as (C). ? Received in [facility] fixative labelled Irving, Jennifer and biopsy [...] is submitted entirely as (E). ? (Dr. Kearney)/[facility] ? End of Report ? [facility] 07/12/2009 07/12/2009 19: 11 EST us Sergey Kraus DO PATHOLOGY ORDERABLES Fi nal Result [facility] [address] [place] [address] documented in this encounter Visit Diagnoses Not on filedocumented in this encounter
--- OUTSIDE RECORDS SUMMARY | 2024-05-19 20:42 | XMS_ITS | Encounter Summary ---
Author Organization [facility] Address [address] [place] [address] Care Team Providers Care Camp Head Counselor Name Role Phone David Blue MD Primary Care Provider [phone] Encounter Details Date Type Department Care Team (Late st Contact Info) Description 07/11/2003 Results Only [facility] - Map conversion [address] [place] [address] Rock Samson MD [address] [place], [place] [address] Social History Tobacco Use Types Packs/Day Years [...] ? JENNIFER IRVING ? Accession #: ? [id number] ? : ? 1960 (Age: 43) ??F [...] ?Appendix with no pathologic features. Comment: ? Product Engineer sections of (A) have been reviewed at the intradepartmental consultation conference, ??A discrepancy between the laterality of the fallopian tube as indicated on the requisition form and the gross impression has been discussed with Dr. Samson' s nursing staff, who indicated that the excised fallopian tube was from the right side. (Dr. Narayan)/[facility] Document reviewed and electronically signed by: [...] A1 ?Anterior cervix A2 ?Posterior cervix A3-A6 ?Product Engineer sections of the anterior intramural mass A7 ?Anterior endomyometrium A8 ?Full thickness endomyometrium A9 ?Product Engineer sections ovary and cyst A10 ?Product Engineer sections fallopian tube and ovary A11 ?Ectocervix Received in formalin labeled Moffett and appendix is a 10.0 cm long x 0.6 cm diameter appendix with a moderate amount of mesoappendix. ??The serosa is unremarkable. ??Serial sectioning reveals a wall thickness that varies from 0.1 to 0.3 cm. ??No fecaliths are identified. ??Four access services representative sections are submitted as (B), including the resection margin, en face, and the distal tip, bisected. ?? (Dr. Lopez)/[facility] End of Report [facility] 07/11/2003 07/11/2003 15: 14 EST us Rock Samson MD PATHOLOGY ORDERABLES Final Resul t [facility] [address] [place] [address] documented in this encounter Visit Diagnoses Not on filedocumented in this encounter Care Teams Camp Head Counselor Relationship Specialty Start Date End Date David Blue MD [address] [place] [address] PCP - General 07/15/09 documented as of this encounter
--- OUTSIDE RECORDS SUMMARY | 2024-05-19 20:42 | XMS_ITS | Encounter Summary ---
Author Organization [facility] Address [facility] [place] [address] Care Team Providers Care Hand Loom Weaver Name Role Phone David Blue MD Primary Care Provider [phone] Encounter Details Date Type Department Care Team (Latest Contact Info) Description 04/03/2014 10:08 AM EST - 04/03/2014 2:04 PM EST Hospital Encounter Gastroenterology at [facility] [place] [address] David Dejesus MD [facility] [place] [address] Discharge Disposition: Home Social History Tobacco Use [...] - 04/03/2014 12:48 PM EST Please call [phone], before 5pm with problems, questions or concerns, after 5pm call the Hospital at [phone] and ask to speak to the Job Developer application internship and the paper guillotine operator will contactthat person for you. Discharge [...] Everywhere. * EGD (UPPER ENDOSCOPY) : POST-OP (BURKINAN) documented in this encounter Medications at Time [...] 05/26/2024 1:10 PM EST App[place] [address] Gavin Carrillo MD [facility] [place] [address] 06/05/2024 1:20 PM EST Office Visit Cardiology at [address] [address] Milagros Hernandez MD [facility] [place] [address] Scheduled Procedures Name Priority Associated Diagnoses Date/Ti [...] (04/03/2014 12:37 PM EST) Final Diagnosis ? [facility] ? Provider: ?? DAVID DEJESUS ??Pt. Name: ?? ISHAN IRVING ? Acc #: ?[id number] ?Pt. ? Col Date: ?? 04/03/2014 ?/Sex: [...] - Labeled/Fixativ e: Duodenal bulb, formalin. ? [facility] ? Provider: ?? DAVID DEJESUS ??Pt. Name: ?? ISHAN IRVING ? Acc #: ?[id number] ?Pt. ? Col Date: ?? 04/03/2014 ?/Sex: [...] Diagnosis: ? Same 04/04/2014 9:11 PM EST [facility] GI Biopsy 04/03/2014 12:3 7 PM EST 04/03/2014 12:37 PM EST GI Biopsy 04/03/2014 12:3 7 PM EST 04/03/2014 12:37 PM EST GI Biopsy 04/03/2014 12:3 7 PM EST 04/03/2014 12:37 PM EST GI Biopsy 04/03/2014 12:3 7 PM EST 04/03/2014 12:37 PM EST David Dejesus MD PATHOLOGY/CYTOLOGY ORDERABLES Performing Organization Address [facility] Co de Phone Number [facility] [place] [address] * Specimen to Pathology (surgical or derm) (04/03/2014 12:37 PM EST) AP Specimen 04/03/2014 12:3 7 PM EST 04/03/2014 12:37 PM EST Narrative [facility] - 04/03/2014 12:37 PM EST Specimen requisition ordered. ??Separate Pathology report to follow David Dejesus MD PATHOLOGY/CYTOLOGY ORDERABLES Performing Organization Address [facility] de Phone Number DARCY GALINDONAZIA * Specimen to Pathology (surgical or derm) (04/03/2014 12:37 PM EST) AP Specimen 04/03/2014 12:3 7 PM EST 04/03/2014 12:37 PM EST Narrative [facility] MILLENNIUM - 04/03/2014 12:37 PM EST Specimen requisition ordered. ??Separate Pathology report to follow David Dejesus MD PATHOLOGY/CYTOLOGY ORDERABLES Performing Organization Address [facility]/State/[facility] Co de Phone Number DARCY [facility] * Specimen to Pathology (surgical or derm) (04/03/2014 12:37 PM EST) AP Specimen 04/03/2014 12:3 7 PM EST 04/03/2014 12:37 PM EST Narrative DARCY BARNETT - 04/03/2014 12:37 PM EST Specimen requisition ordered. ??Separate Pathology report to follow David Dejesus MD PATHOLOGY/CYTOLOGY ORDERABLES Performing Organization Address [facility] Co de Phone Number DARCY [facility] * Specimen to Pathology (surgical or derm) (04/03/2014 12:37 PM EST) AP Specimen 04/03/2014 12:3 7 PM EST 04/03/2014 12:37 PM EST Narrative DARCY BARNETT - 04/03/2014 12:37 PM EST Specimen requisition ordered. ??Separate Pathology report to follow David Dejesus MD PATHOLOGY/CYTOLOGY ORDERABLES Performing Organization Address [facility] Co de Phone Number DARCY [facility] * UPPER GI ENDOSCOPY (04/03/2014 12:06 PM EST) UPPER GI ENDOSCOPY [facility] Endoscopy Patient Name: Ishan Irving ? Procedure Date: 04/03/2014 12:06 PM ? Date of : 1960 ? Age: 53 ? Order #: [id number] ? Procedure: ? Upper GI endoscopy Indications: [...] documented in this encounter Care Teams Hand Loom Weaver Relationship Specialty Start Date End Date David Blue MD [address] [place] [address] PCP - General 04/01/10 02/02/19 documented as of this encounter
--- OUTSIDE RECORDS SUMMARY | 2024-05-19 20:42 | XMS_ITS | Encounter Summary ---
Author Organization [facility] Address [address] [place] [address] Care Team Providers Care Foreman/Project Manager Name Role Phone David Blue MD Primary Care Provider [phone] Encounter Details Date Type Department Care Team (Late st Contact Info) Description 07/18/2021 Lab Requisition [facility] Pathology & Laboratory Medicine - [facility] [address] [place] [address] Kavita Viera, DO [address] [place] [address] Encounter for other general examination Social History [...] management options, if applicable. 07/22/2021 10:39 EDT [facility] Final Diagnosis A. STOMACH, ANTRUM, BIOPSY: - Transitional mucosa with reactive (chemical) gastropathy. - Negative for Helicobacter pylori on H&E stained sections. B. ESOPHAGUS, MID-DISTAL, BIOPSY: - Fibrinopurulent exudate. - No intact epithelium identified. 07/22/2021 10:39 [facility] Attestation By the signature below, the attending physician certifies that they have 1) personally conducted a gross and/or microscopic examination of the described specimen(s), and/or personally interpreted the results of laboratory testing of the described specimen(s), and 2) personally rendered or confirmed the above diagnosis. 07/22/2021 10:39 [facility] at 1039 Clinical History Intractable nausea, vomiting 07/22/2021 10:39 [facility] Gross Description A. [...] B1. ROSLYN CACERES(ASCP) 07/21/2021 9:55 07/22/2021 10:39 [facility] Performing Lab [facility] 10:39 [facility] Scanned Images 07/22/2021 10:39 [facility] Tissue ENTIRE ESOPHAGUS / Unknown 07/18/2021 14:10 EST 07/18/2021 22:23 EST Tissue specimen (specimen) ESOPHAGEAL STRUCTURE / Unknown 07/18/2021 14:10 EST 07/18/2021 22:23 EST us Kavita Viera DO PATHOLOGY ORDERABLES Fi nal Result [facility] [address] [place] [address] documented in this encounter Visit Diagnoses Diagnosis Encounter for other general examination documented in this encounter Care Teams Foreman/Project Manager Relationship Specialty Start Date End Date David Blue MD [address] [place] [address] PCP - General 07/15/09 documented as of this encounter
--- OUTSIDE RECORDS SUMMARY | 2024-05-19 20:42 | XMS_ITS | Encounter Summary ---
Author Organization [facility] Address [facility] [place] [address] Care Team Providers Care Mophead Sewer Name Role Phone Ana Gillespie APRN Primary Care Provider [phone] Encounter Details Date Type Department Care Team (Late st Contact Info) Description 09/06/2009 Orders Only Gynecology Oncology at [place] [phone] Kathy Romero MD Social History Tobacco Use Types Packs/Day [...] 05/26/2024 1:10 PM EST Appointment Radiology at [place] [phone] [facility] [place] [address] 06/05/2024 1:20 PM EST Office Visit Cardiology at [address] [phone] [facility] [place] [address] Scheduled Procedures Name Priority Associated Diagnoses Date/Ti me EGD, UPPER GI ENDOSCOPY (WRV U 2.09) Peptic stricture of esophagus documented as of this encounter Procedures Procedure Name Priority Date/Time Associated Diagnosis Comments SURGICAL PATHOLOGY REPORT Routine 09/06/2009 2:34 PM EDT documented in this encounter Results * Surgical Pathology Report (09/06/2009 2:34 PM EDT) Pathologist [facility] Surgical Pathology Report [id number] ? Location: [facility] The signing pathologist has (i) examined [...] fibromembranous, and fibrofatty tissues. ??Sectioning reveals a 2.1-fe-iy-greates t- dimension, clear fluid-filled, smooth-lined cyst with surrounding rubbery, estrada-white tissue. Sections/Processi ng: ??A technology sales representative section is submitted for frozen ?section. ??The frozen section residue is submitted in ?(A1). ??Additional technology sales representative sections are ?submitted. (R4) ??aje/EJR [...] Section Report ?09/06/09 14:51 09/06/09 ??Verified by: ??Viktor Madrigal MD, Pathologist The attending pathologist whose electronic signature appears on this report has reviewed all diagnostic slides in rendering the frozen section diagnosis. This intraoperative consultation should be interpreted as a preliminary diagnosis pending review of the entire specimen and special studies, if any. DARCY BARNETT 09/06/2009 2:34 PM EDT Kathy Romero MD [facility] Performing Organization Address City/State/[facility] Co de Phone Number DARCY BARNETT documented in this encounter Visit Diagnoses Not on filedocumented in this encounter Additional Health Concerns Infection Onset Date Last Indicated Resolved Time Rule Out COVID-19 08/15/2022 08/15/2022 08/15/2022 11:30 AM EDT Rule Out COVID-19 08/15/2022 08/15/2022 08/15/2022 3:01 PM EDT Rule Out C. difficile 08/19/2022 08/19/20222022 8:33 PM EDT documented as of this encounter Care Teams Mophead Sewer Relationship Specialty Start Date End Date Ana Gillespie APRN [address] [place] [address] PCP - General Family Medicine 02/03/19 documented as of this encounter
--- OUTSIDE RECORDS SUMMARY | 2024-05-19 20:42 | XMS_ITS | Encounter Summary ---
Author Organization [facility] [place] [address] Care Team Providers Care Production Engine Repairer Name Role Phone David Blue MD Primary Care Provider [phone] Encounter Details Date Type Department Care Team (Late st Contact Info) Description 01/15/2011 Ancillary Procedure Radiology Library at [facility] [place] [phone] Ana Gillespie APRN [address] [place] [address] Social History Tobacco Use Types [...] 05/26/2024 1:10 PM EST Appointment [place] [address] Gavin Carrillo MD [facility] [place] [address] 06/05/2024 1:20 PM EST Office Visit Cardiology at [address] [phone] Milagros Hernandez MD [facility] [place] [address] Scheduled Procedures Name Priority Associated [...] Gillespie APRN IMMadison FILM LIBRARY ORD ERABLES [place], [place] documented in this encounter Visit Diagnoses Not on filedocumented in this encounter Care Teams Production Engine Repairer Relationship Specialty Start Date End Date David Blue MD [address] [place] [address] PCP - General 04/01/10 02/02/19 documented as of this encounter
--- OUTSIDE RECORDS SUMMARY | 2024-05-19 20:42 | XMS_ITS | Encounter Summary ---
Author Organization [facility] Address [address] [place] [address] Care Team Providers Care Drying Supervisor Name Role Phone David Blue MD Primary Care Provider [phone] Encounter Details Date Type Department Care Team (Late st Contact Info) Description 03/06/2021 Lab Requisition [facility] Pathology & Laboratory Medicine - [facility] [address] [place], [place] [address] Outr Resulting Lab, Provider Social History Tobacco [...] Surface Ag Negative Negative 03/07/20 10:41 T [facility] Hep B Surface Ab, Quantitative <3.1 See Note mIU/mL 03/07/2021 10:41 T [facility] Comment: Reference Range for Hep B Surface Ab, Quant: Positive: >= 10.0 mIU/mL Negative: ??< 10.0 mIU/mL Patient is presumed to not be immune to infection with Hepatitis B Virus. Hep B Surface Ab, Qualitative Negative See Note 03/07/2021 10:41 EDT [facility] Comment: Reference Range for Hep B Surface Ab, Qual: Unvaccinated: ??Negative Vaccinated: ??Positive Hepatitis B Core Ab, Total Negative Negative 03/07/2021 10:41 EDT [facility] Hep C Antibody Negative Negative 03/07/2021 10:41 EDT [facility] Blood VENOUS BLOOD / Unknown 03/06/2021 7:10 EDT 03/06/2021 16:38 EDT us Provider Outr Resulting Lab CHEMISTRY & BLOOD GA S ORDERABLES Final Result [facility] [address] [place] [address] documented in this encounter Visit Diagnoses Not on filedocumented in this encounter Care Teams Drying Supervisor Relationship Specialty Start Date End Date David Blue MD [address] [place] [address] PCP - General 07/15/09 documented as of this encounter
--- OUTSIDE RECORDS SUMMARY | 2024-05-19 20:42 | XMS_ITS | Encounter Summary ---
Author Organization [facility] [place] [address] Care Team Providers Care Hat Ironer Name Role Phone David Blue MD Primary Care Provider [phone] Encounter Details Date Type Department Care Team (Latest Contact Info) Description 07/02/2014 12:45 PM EST - 07/02/2014 11:59 PM EST Hospital [place] [address] CLINIC, David Lees MD [address] [place], [place] [id number] Discharge Disposition: Home Social History Tobacco Use [...] 05/26/2024 1:10 PM [place] [address] Gavin Carrillo MD [facility] [place] [address] 06/05/2024 1:20 PM EST Office Visit Cardiology at [address] [address] Milagros Hernandez MD [facility] [place] [address] Scheduled Procedures Name Priority Associated Diagnoses Date/Ti [...] filedocumented in this encounter Care Teams Hat Ironer Relationship Specialty Start Date End Date David Blue MD [address] [place] [address] PCP - General 04/01/10 02/02/19 documented as of this encounter
--- OUTSIDE RECORDS SUMMARY | 2024-05-19 20:42 | XMS_ITS | Encounter Summary ---
[place] [address] Care Team Providers Care Boilermaker Mechanic Name Role Phone David Blue MD Primary Care Provider [phone] Reason for Visit * Reason Onset Date Comments Prior Authorization 12/17/2014 Encounter Details Date Type Department Care Team (Late st Contact Info) Description 12/17/2014 [place] [address] Radha Urena Prior Authorization Social [...] for request: TYPE II DM Health [place] Authorizing procurement representative name: BRYANT Faxed to health plan on: 12/17/14 Health plan decision: APPROVED Quantity approved: 4 FOR 30 DAYS Authorization number: [id number] Start date: 12/20/14 End date: 12/21/15 Patient notified? Pharmacy notified? documented in this encounter Plan of Treatment Upcoming Encounters Date Type Department Care Team (Late st Contact Info) Description 05/26/2024 1:10 PM [place] [address] Gavin Carrillo MD [facility] [place] [address] 06/05/2024 1:20 PM EST Office Visit Cardiology at [address] [address] Milagros Hernandez MD [facility] [place] [address] Scheduled Procedures Name Priority Associated Diagnoses Date/Ti me EGD, UPPER GI ENDOSCOPY (WRV U 2.09) Peptic stricture of esophagus documented as of this encounter Visit Diagnoses Not on filedocumented in this encounter Care Teams Boilermaker Mechanic Relationship Specialty Start Date End Date David Blue MD [address] [place] [address] PCP - General 04/01/10 02/02/19 documented as of this encounter
--- OUTSIDE RECORDS SUMMARY | 2024-05-19 20:42 | XMS_ITS | Encounter Summary ---
Author Organization [facility] Address [address] [place] [address] Care Team Providers Care Printing Grey Cloth Tender Name Role Phone David Blue MD Primary Care Provider [phone] Encounter Details Date Type Department Care Team (Late st Contact Info) Description 06/10/2021 Lab Requisition [facility] Pathology & Laboratory Medicine - [facility] [address] [place] [address] Merly Purcell, DO [address] [place] [address] Encounter for other general examination [...] management options, if applicable. 06/11/2021 13:01 EST [facility] Final Diagnosis A. JEJUNUM, [...] - Consistent with Hyperplastic polyp. 06/11/2021 13:01 [facility] Attestation By the signature below, the attending physician certifies that they have 1) personally conducted a gross and/or microscopic examination of the described specimen(s), and/or personally interpreted the results of laboratory testing of the described specimen(s), and 2) personally rendered or confirmed the above diagnosis. 06/11/2021 13:01 [facility] at [address] Clinical History Anemia, abdominal pain 06/11/2021 13:01 [facility] Gross Description A. Received [...] N1. ROSLYN EARLY(ASCP) 06/10/2021 19:05 06/11/2021 13:01 [facility] Performing Lab [facility] 06/11/2021 13:01 [facility] Scanned Images 06/11/2021 13:01 [facility] Tissue SPECIMEN FROM RECTUM [...] Purcell DO PATHOLOGY ORDERABLES Final Re sult [facility] [address] [place] [address] documented in this encounter Visit Diagnoses Diagnosis Encounter for other general examination documented in this encounter Care Teams Printing Grey Cloth Tender Relationship Specialty Start Date End Date David Blue MD [address] [place] [address] PCP - General 07/15/09 documented as of this encounter
--- OUTSIDE RECORDS SUMMARY | 2024-05-19 20:42 | XMS_ITS | Encounter Summary ---
Author Organization [facility] Address [address] [place] [address] Care Team Providers Care Vacuum Forming Machine Operator Name Role Phone David Blue MD Primary Care Provider [phone] Encounter Details Date Type Department Care Team (Late st Contact Info) Description 08/13/2022 Lab Requisition [facility] Pathology & Laboratory Medicine - [facility] [address] [place], [place] [address] Outr Resulting Lab, Provider Social History Tobacco [...] Antigen Detection Negative Negative 08/13/2022 23:31 EDT [facility] Urine URINE / Unknown 08/12/2022 1 8:12 EDT 08/13/2022 18:30 EDT us Provider Outr Resulting Lab MICROBIOLOGY - GENER AL ORDERABLES Final Result [facility] [address] [place] [address] documented in this encounter Visit Diagnoses Not on filedocumented in this encounter Care Teams Vacuum Forming Machine Operator Relationship Specialty Start Date End Date David Blue MD [address] [place] [address] PCP - General 07/15/09 documented as of this encounter
--- OUTSIDE RECORDS SUMMARY | 2024-05-19 20:42 | XMS_ITS | Encounter Summary ---
Author Organization [facility] Address [address] [place] [address] Care Team Providers Care Outbound Sales Advisor Name Role Phone David Blue MD Primary Care Provider [phone] Encounter Details Date Type Department Care Team (Late st Contact Info) Description 12/23/2000 Results Only [facility] - Map conversion [address] [place] [address] Rock Samson MD [address] [place], [place] [address] Social History Tobacco Use Types Packs/Day Years [...] ? JENNIFER IRVING ? Accession #: ? [id number] : ? 1960 (Age: 40) ??F ?Collect [...] ORDERABLES Final Resul t [facility] [address] [place] [address] documented in this encounter Visit Diagnoses Not on filedocumented in this encounter Care Teams Outbound Sales Advisor Relationship Specialty Start Date End Date David Blue MD [address] [place] [address] PCP - General 07/15/09 documented as of this encounter
--- OUTSIDE RECORDS SUMMARY | 2024-05-19 20:42 | XMS_ITS | Encounter Summary ---
Author Organization [facility] Address [address] [place] [address] Care Team Providers Care Mold Technician Name Role Phone David Blue MD Primary Care Provider [phone] Encounter Details Date Type Department Care Team (Late st Contact Info) Description 02/01/2023 Lab Requisition [facility] Pathology & Laboratory Medicine - [facility] [address] [place], [place] [address] Outr Resulting Lab, Provider Social History Tobacco [...] 11.7 See Note ??g/mL 02/01/2023 17:40 EDT [facility] Comment: NOTE: Reference Ranges: Trough: ??10.0 - 20.0 ug/mL Peak: ??25.0 - 50.0 ug/mL Blood VENOUS BLOOD / Unknown 02/01/2023 7:55 EDT 02/01/2023 17:12 EDT us Provider Outr Resulting Lab CHEMISTRY & BLOOD GA S ORDERABLES Final Result [facility] [address] [place] [address] documented in this encounter Visit Diagnoses Not on filedocumented in this encounter Care Teams Mold Technician Relationship Specialty Start Date End Date David Blue MD [address] [place] [address] PCP - General 07/15/09 documented as of this encounter
--- OUTSIDE RECORDS SUMMARY | 2024-05-19 20:42 | XMS_ITS | Encounter Summary ---
Author Organization [facility] Address [facility] Marly petersen [place] [id number] Care Team Providers Care Charter Coordinator Name Role Phone David Blue MD Primary Care Provider [phone] Encounter Details Date Type Department Care Team (Late st Contact Info) Description 12/14/2014 Orders Only Endocrinology at [place] [phone] Dean Caban MD Type 2 diabetes mellitus, uncontrolled Social History [...] 05/26/2024 1:10 PM [place] [address] Gavin Carrillo MD [facility] [place] [address] 06/05/2024 1:20 PM EST Office Visit Cardiology at [address] [address] Milagros Hernandez MD [facility] [place] [address] Scheduled Procedures Name Priority Associated Diagnoses Date/Ti me EGD, UPPER GI ENDOSCOPY (WRV U 2.09) Peptic stricture of esophagus documented as of this encounter Visit Diagnoses Diagnosis Type 2 diabetes mellitus, uncontrolled Type II or unspecified type diabetes mellitus without mention of complication, uncontrolled documented in this encounter Care Teams Charter Coordinator Relationship Specialty Start Date End Date David Blue MD [address] [place] [address] PCP - General 04/01/10 02/02/19 documented as of this encounter
--- OUTSIDE RECORDS SUMMARY | 2024-05-19 20:42 | XMS_ITS | Encounter Summary ---
Author Organization [facility] [place] [address] Care Team Providers Care Decker Operator Name Role Phone David Blue MD Primary Care Provider [phone] Encounter Details Date Type Department Care Team (Late st Contact Info) Description 04/03/2014 11:30 AM EST - 04/03/2014 12:00 PM EST Surgery Gastroenterology at [facility] [place] [address] David Dejesus MD [facility] [place] [address] EGD, UPPER GI ENDOSCOPY (WRVU 2.09) Social [...] - 04/03/2014 12:48 PM EST Please call [phone], before 5pm with problems, questions or concerns, after 5pm call the Hospital at [phone] and ask to speak to the Button Reclaimer design sales consultant and the mower operator will contactthat person for you. Discharge [...] Everywhere. * EGD (UPPER ENDOSCOPY) : POST-OP (ZAMBIAN) documented in this encounter Medications at Time [...] 05/26/2024 1:10 PM [place] [address] Gavin Carrillo MD [facility] [place] [address] 06/05/2024 1:20 PM EST Office Visit Cardiology at [address] [phone] Milagros Hernandez MD [facility] [place] [address] Scheduled Procedures Name Priority Associated Diagnoses Date/Ti [...] (04/03/2014 12:37 PM EST) Final Diagnosis ? [facility] ? Provider: ?? DAVID DEJESUS ??Pt. Name: ?? JENNIFER IRVING ? Acc #: ?[id number] ?Pt. ? Col Date: ?? 04/03/2014 ?/Sex: [...] e: Duodenal bulb, formalin. ? [facility] ? Provider: ?? DAVID DEJESUS ??Pt. Name: ?? JENNIFER IRVING ? Acc #: ?[id number] ?Pt. ? Col Date: ?? 04/03/2014 ?/Sex: [...] Diagnosis: ? Same 04/04/2014 9:11 PM EST [facility] GI Biopsy 04/03/2014 12:3 7 PM EST 04/03/2014 12:37 PM EST GI Biopsy 04/03/2014 12:3 7 PM EST 04/03/2014 12:37 PM EST GI Biopsy 04/03/2014 12:3 7 PM EST 04/03/2014 12:37 PM EST GI Biopsy 04/03/2014 12:3 7 PM EST 04/03/2014 12:37 PM EST David Dejesus MD PATHOLOGY/CYTOLOGY ORDERABLES Performing Organization Address [facility] Co de Phone Number DARCY [facility] [place] [place] [address] * Specimen to Pathology (surgical or derm) (04/03/2014 12:37 PM EST) AP Specimen 04/03/2014 12:3 7 PM EST 04/03/2014 12:37 PM EST Narrative CERNER MILLENNIUM - 04/03/2014 12:37 PM EST Specimen requisition ordered. ??Separate Pathology report to follow David Dejesus MD PATHOLOGY/CYTOLOGY ORDERABLES Performing Organization Address [facility] Co de Phone Number [facility] * Specimen to Pathology (surgical or derm) (04/03/2014 12:37 PM EST) AP Specimen 04/03/2014 12:3 7 PM EST 04/03/2014 12:37 PM EST Narrative CERNER MILLENNIUM - 04/03/2014 12:37 PM EST Specimen requisition ordered. ??Separate Pathology report to follow David Dejesus MD PATHOLOGY/CYTOLOGY ORDERABLES Performing Organization Address [facility]/ZIP Co de Phone Number DARCY BARNETT * Specimen to Pathology (surgical or derm) (04/03/2014 12:37 PM EST) AP Specimen 04/03/2014 12:3 7 PM EST 04/03/2014 12:37 PM EST Narrative DARCY BARNETT - 04/03/2014 12:37 PM EST Specimen requisition ordered. ??Separate Pathology report to follow David Dejesus MD PATHOLOGY/CYTOLOGY ORDERABLES Performing Organization Address [facility] Co de Phone Number DARCY BARNETT * Specimen to Pathology (surgical or derm) (04/03/2014 12:37 PM EST) AP Specimen 04/03/2014 12:3 7 PM EST 04/03/2014 12:37 PM EST Narrative DARCY BARNETT - 04/03/2014 12:37 PM EST Specimen requisition ordered. ??Separate Pathology report to follow David Dejesus MD PATHOLOGY/CYTOLOGY ORDERABLES Performing Organization Address [facility] Co de Phone Number DARCY BARNETT * UPPER GI ENDOSCOPY (04/03/2014 12:06 PM EST) UPPER GI ENDOSCOPY [facility] Patient Name: Jennifer Irving ? Procedure Date: 04/03/2014 12:06 PM ? N: [id number] ? Date of : 1960 ? Age: 53 ? Order #: [id number] ? Procedure: ? Upper GI endoscopy Indications: [...] RN) documented in this encounter Care Teams Decker Operator Relationship Specialty Start Date End Date David Blue MD [address] [place] [address] PCP - General 04/01/10 02/02/19 documented as of this encounter
--- OUTSIDE RECORDS SUMMARY | 2024-05-19 20:42 | XMS_ITS | Encounter Summary ---
Author Organization [facility] Address [address] [place] [address] Care Team Providers Care Union Representative Name Role Phone David Blue MD Primary Care Provider [phone] Encounter Details Date Type Department Care Team (Late st Contact Info) Description 09/14/2007 Results Only [facility] - Maple conversion [address] [place] [address] Kassidy Villafana FNP [address] [place], [place] [address] Social History Tobacco Use Types Packs/Day Years [...] ? JENNIFER IRVING ? Accession #: ? [id number] : ? 1960 (Age: 47) ??F ?Collect Date: ? 09/14/2007 Location: ? [facility] ? Receive Date: ? 09/16/2007 Provider: ?KASSIDY DUDLEYP Copy to: ? Specimen/Source: ?ThinPrep Pap Test, Cervix/Endocervix, processed on Wave - Private Location App ThinPrep Imaging System, with manual evaluation Last [...] Final Resul t [facility] [address] [place] [address] documented in this encounter Visit Diagnoses Not on filedocumented in this encounter Care Teams Union Representative Relationship Specialty Start Date End Date David Blue MD [address] [place] [address] PCP - General 07/15/09 documented as of this encounter
--- OUTSIDE RECORDS SUMMARY | 2024-05-19 20:42 | XMS_ITS | Encounter Summary ---
Author Organization [facility] Address [facility] [place] [address] Care Team Providers Care Histologic Technician Name Role Phone Ana Gillespie APRN Primary Care Provider [phone] Encounter Details Date Type Department Care Team (Late st Contact Info) Description 09/06/2009 Orders Only Gynecology Oncology at [place] [phone] Kathy Romero MD Social History Tobacco Use [...] 05/26/2024 1:10 PM EST Appointment Radiology at [place] [phone] [facility] [place] [address] 06/05/2024 1:20 PM EST Office Visit Cardiology at [address] [phone] [facility] [place] [address] Scheduled Procedures Name Priority Associated Diagnoses Date/Ti me EGD, UPPER GI ENDOSCOPY (WRV U 2.09) Peptic stricture of esophagus documented as of this encounter Procedures Procedure Name Priority Date/Time Associated Diagnosis Comments NON-PRODUCTION CLERKS SUPERVISOR FINAL REPORT Routine 09/06/2009 12:50 PM EDT documented in this encounter Results * Non-Vending Machine Operator Final Report (09/06/2009 12:50 PM EDT) Non-Vending Machine Operator Final Report [id number] ? Location: [facility] The signing pathologist has (i) examined the relevant preparation(s) for the specimen(s) and (ii) rendered or confirmed the diagnosis(es). . ? Pathology Non-Vending Machine Operator Cytology Final Report Clinical Information Specimen Source: [...] SBT 09/09/09 ?Verified by: ? Venita Ledezma MD. ? Pathologist ? (Electronic Signature) Comment Pelvic Washings: ? Blood only. ? No mesothelial cells identified. ? No malignant cells identified. Cell block confirms cytologic impression. ??Please see concurrent surgical specimen, [id number], for additional information. [facility] BARNETT 09/06/2009 12:5 0 PM EDT Kathy Romero MD PATHOLOGY/CYTOLOGY O RDERAREYMUNDO DARCY BARNETT documented in this encounter Visit Diagnoses Not on filedocumented in this encounter Additional Health Concerns Infection Onset Date Last Indicated Resolved Time Rule Out COVID-19 08/15/2022 08/15/2022 08/15/2022 11:30 AM EDT Rule Out COVID-19 08/15/2022 08/15/2022 08/15/2022 3:01 PM EDT Rule Out C. difficile 08/19/2022 08/19/20222022 8:33 PM EDT documented as of this encounter Care Teams Histologic Technician Relationship Specialty Start Date End Date Ana Gillespie APRN [address] [place] [address] PCP - General Family Medicine 02/03/19 documented as of this encounter
--- OUTSIDE RECORDS SUMMARY | 2024-05-19 20:42 | XMS_ITS | Encounter Summary ---
Author Organization [facility] Address [facility] [place] [address] Care Team Providers Care Credit Risk Associate Name Role Phone David Blue MD Primary Care Provider [phone] Encounter Details Date Type Department Care Team (Late st Contact Info) Description 02/24/2016 Orders Only Gastroenterology at [place] [phone] David Dejesus MD [facility] [place] [address] Screening breast examination Social History Tobacco Use [...] 05/26/2024 1:10 PM EST Appointment Radiology at [place] [phone] Gavin Carrillo MD [facility] [place] [address] 06/05/2024 1:20 PM EST Office Visit Cardiology at [address] [phone] Milagros Hernandez MD [facility] [place] [address] Scheduled Procedures Name Priority Associated Diagnoses Date/Ti me EGD, UPPER GI ENDOSCOPY (WRV U 2.09) Peptic stricture of esophagus documented as of this encounter Visit Diagnoses Diagnosis Screening breast examination Other screening breast examination documented in this encounter Care Teams Credit Risk Associate Relationship Specialty Start Date End Date David Blue MD [address] [place] [address] PCP - General 04/01/10 02/02/19 documented as of this encounter
--- OUTSIDE RECORDS SUMMARY | 2024-05-19 20:42 | XMS_ITS | Encounter Summary ---
Author Organization [facility] Address [address] [place] [address] Care Team Providers Care Online Producer Name Role Phone David Blue MD Primary Care Provider Encounter Details Date Type Department Care Team (Late st Contact Info) Description 11/28/[address] [facility] Laboratory Services - [facility] ([facility]) [address] [place], [place] [id number] Sergey Kraus, DO [address] [facility] ,[address] [place] [address] Social History Tobacco Use Types [...] ? IRVING, JENNIFER ? Accession #: ? [id number] ? : ? 1960 (Age: 50) ??F ? Collect Date: ? 11/28/2010 ? Location: ? [facility] ? Receive Date: ? 11/28/2010 ? Provider: SERGEY KRAUS DO ? Copy to: DAVID BLUE MD ? Final Pathologic Diagnosis: ? Colon, 20 cm, polyp, biopsy: ? - Hyperplastic polyp. ??See comment. ? Comment: ? Deeper levels have been examined. Bilingual Social Worker sections of this case have been reviewed [...] submitted in a single cassette. ( ? [facility] ? End of Report ? [facility] 11/28/2010 11/28/2010 18: 52 EDT us Sergey Kraus DO PATHOLOGY ORDERABLES Fi nal Result [facility] [address] [place] [address] documented in this encounter Visit Diagnoses Not on filedocumented in this encounter Care Teams Online Producer Relationship Specialty Start Date End Date David Blue MD [address] [place] [address] PCP - General 07/15/09 documented as of this encounter
--- OUTSIDE RECORDS SUMMARY | 2024-05-19 20:42 | XMS_ITS | Encounter Summary ---
[place] [address] Care Team Providers Care Oiler Helper Name Role Phone David Blue MD Primary Care Provider + [phone] Reason for Visit * Reason Onset Date Comments Weight Management 04/19/2013 Encounter Details Date Type Department Care Team (Late st Contact Info) Description 04/19/2013 Telephone Pediatric & Adolescent Medicine at [address] [address] Guanakito Cronin MD [address] [place] [address] Weight Management Social History Tobacco Use Types [...] if you would send your answer to Lillaina, she can call [facility]. Janeen Nuñez * [...] 05/26/2024 1:10 PM [place] [address] Gavin Carrillo MD [facility] [place] [address] 06/05/2024 1:20 PM EST Office Visit Cardiology at [address] [address] Milagros Hernandez MD [facility] [place] [address] Scheduled Procedures Name Priority Associated Diagnoses Date/Ti me EGD, UPPER GI ENDOSCOPY (WRV U 2.09) Peptic stricture of esophagus documented as of this encounter Visit Diagnoses Not on filedocumented in this encounter Care Teams Oiler Helper Relationship Specialty Start Date End Date David Blue MD [address] [place] [address] PCP - General 04/01/10 02/02/19 documented as of this encounter
--- OUTSIDE RECORDS SUMMARY | 2024-05-19 20:42 | XMS_ITS | Clinical Summary ---
Author Organization [facility] Address [address] [place] [address] Care Team Providers Care Pharmaceutical Development Technician Name Role Phone David Blue MD Primary Care Provider Social History Tobacco Use Types Packs/Day [...] 2035 Insurance MEDICAID [place] Care Teams Pharmaceutical Development Technician Relationship Specialty Start Date End Date David Blue MD [address] [place] [address] PCP - General 07/15/09
--- OUTSIDE RECORDS SUMMARY | 2024-05-19 20:42 | XMS_ITS | Encounter Summary ---
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 Has had some subsequent egds. We do [...] to have her Covington's management here at [facility]. We reviewed the issues of timing of [...] to be successful. 45 of 60 direct [id number] minutes spent in counseling, and the rest [...] 05/26/2024 1:10 PM EST Appointment [place] [address] Gavin Carrillo MD [facility] [place] [address] 06/05/2024 1:20 PM EST Office Visit Cardiology at [address] [phone] Milagros Hernandez MD [facility] [place] [address] Scheduled Procedures Name Priority Associated Diagnoses Date/Ti me EGD, UPPER GI ENDOSCOPY (WRV U 2.09) Peptic stricture of esophagus documented as of this encounter Visit Diagnoses Diagnosis GERD (gastroesophageal reflux disease)- Primary Esophageal reflux Covington's esophagus documented in this encounter Care Teams Rn Telemetry Relationship Specialty Start Date End Date David Blue MD [address] [place] [address] PCP - General 04/01/10 02/02/19 documented as of this encounter
--- OUTSIDE RECORDS SUMMARY | 2024-05-19 20:42 | XMS_ITS | Encounter Summary ---
Author Organization [facility] Address [address] [place] [address] Care Team Providers Care Real Estate Account Executive Name Role Phone David Blue MD Primary Care Provider [phone] Encounter Details Date Type Department Care Team (Late st Contact Info) Description 04/28/2002 Results Only [facility] - [facility] conversion [address] [place] [address] [place] [id number] Social History Tobacco Use Types Packs/Day Years [...] ? JENNIFER IRVING ? Accession #: ? [id number] : ? 1960 (Age: 41) ??F ?Collect [...] ORDERABLES Final Res ult Performing Organization Address City/State/[facility] Co de Phone Number [facility] [address] [place] [address] documented in this encounter Visit Diagnoses Not on filedocumented in this encounter Care Teams Real Estate Account Executive Relationship Specialty Start Date End Date David Blue MD [address] [place] [address] PCP - General 07/15/09 documented as of this encounter
--- OUTSIDE RECORDS SUMMARY | 2024-05-19 20:42 | XMS_ITS | Encounter Summary ---
Author Organization [facility] [place] [address] Care Team Providers Care Creative Director Name Role Phone David Blue MD Primary Care Provider [phone] Encounter Details Date Type Department Care Team (Late st Contact Info) Description 12/12/2012 Ancillary Procedure Radiology Library at [facility] [phone] Ana Gillespie APRN [address] [place] [address] Social History Tobacco Use Types [...] 05/26/2024 1:10 PM [place] [address] Gavin Carrillo MD [facility] [place] [address] 06/05/2024 1:20 PM EST Office Visit Cardiology at [address] [phone] Milagros Hernandez MD [facility] [place] [address] Scheduled Procedures Name Priority Associated [...] Gillespie APRN [employer]MMad[employer] FILM LIBRARY ORD ERABLES [place], [place] documented in this encounter Visit Diagnoses Not on filedocumented in this encounter Care Teams Creative Director Relationship Specialty Start Date End Date David Blue MD [address] [place] [address] PCP - General 04/01/10 02/02/19 documented as of this encounter
--- OUTSIDE RECORDS SUMMARY | 2024-05-19 20:42 | XMS_ITS | Referral Summary ---
Author Organization [facility] Address [address] [place] [address] Care Team Providers Care Inseam Trimmer Name Role Phone David Blue MD Primary Care Provider [phone] Social History Tobacco Use Types Packs/Day Years Used Date Smoking Tobacco: Never Assessed Comments Unknown Sex and Gender Information Value Date Recorded Sex Assigned at Not on file Legal Sex Female 18:27 EST Gender Identity Not on file Sexual Orientation Not on file Plan of Treatment Not on file Insurance MEDICAID [facility] [place] Care Teams Inseam Trimmer Relationship Specialty Start Date End Date David Blue MD [address] [place] [address] PCP - General 07/15/09
--- OUTSIDE RECORDS SUMMARY | 2024-05-19 20:42 | XMS_ITS | Encounter Summary ---
Author Organization [facility] Address [address] [place] [address] Care Team Providers Care Top Stitcher Name Role Phone David Blue MD Primary Care Provider [phone] Encounter Details Date Type Department Care Team (Late st Contact Info) Description 01/08/2006 Results Only [facility] - Maple conversion [address] [place] [address] Sergey Kraus, DO [address] [facility] ,[address] [place] [address] Social History Tobacco Use Types [...] ? JENNIFER IRVING ? Accession #: ? [id number] ? : ? 1960 (Age: 45) ??F [...] Fi nal Result [facility] [address] [place] [address] documented in this encounter Visit Diagnoses Not on filedocumented in this encounter Care Teams Top Stitcher Relationship Specialty Start Date End Date David Blue MD [address] [place] [address] PCP - General 07/15/09 documented as of this encounter
--- OUTSIDE RECORDS SUMMARY | 2024-05-19 20:42 | XMS_ITS | Encounter Summary ---
Author Organization [facility] [place] [address] Care Team Providers Care Pathology Supervisor Name Role Phone David Blue MD Primary Care Provider [phone] Reason for Referral * Consultation (Routine) - Closed Specialty Diagnoses / Procedures Referred By Esperanza t Referred To Contact Endocrinology Diagnoses Diabetes mellitus type 2, uncontrolled Dean Caban MD [facility] DR ENDOCRINOLOGY DEPT [place] [id number] Yin Rehman LD [facility] [place] [address] Referral ID Status Reason Start Date Expiration Date V isits Requested Visits Authorized [id number] Closed Continuity of Care 12/13/2014 12/13/2015 3 3 Reason for Visit * Reason Comments Diabetes Encounter Details Date Type Department Care Team (Late st Contact Info) Description 12/13/2014 1:40 PM EDT Office [place] [address] Moustapha Agosto MD [facility] [place] [address] Diabetes mellitus type 2, uncontrolled Discharge Disposition: [...] with gestational diabetes 12 years ago and [id number] five years ago. The patient reports that [...] mg BID - Will coordinate visit with Facility Environmental Technician at next visit - Complication Monitoring: - [...] 05/26/2024 1:10 PM [place] [phone] Gavin Carrillo MD [facility] [place] [address] 06/05/2024 1:20 PM EST Office Visit Cardiology at [address] [phone] Milagros Hernandez MD [facility] [place] [place] [address] Scheduled Procedures Name Priority Associated Diagnoses Date/Ti [...] PM EDT) Creatinine, Urine 284 mg/dL [facility] ERIER MILL[place]ZARA Albumin, Urine 258.4 mg/L GOGONE R MILLENNIUM Albumin / Creatinin Ratio, Urine 91 mcg/mg Cr [facility] Comment: Reference Range* Random collection (mcg/mg creatinine) Normal ?<30 Microalbuminuria ?? 30 - 300 Clinical Albuminuria ?? >300 *[place] Diabetes Association. Diabetic Nephropathy. Diabetes Care 1997;(Suppl 1):S24-S27 Exercise within 24 hour, infection, fever, CHF, marked hyperglycemia, and marked hypertension may elevate urinary albumin excretion over baseline values. Urine specimen (specimen) 12/13/2014 12:33 PM EDT 12/13/2014 12:39 PM EDT Narrative Resulting Agency Comment Spec In Lab Moustapha Agosto MD URINE ORDERABLES [facility] * (ABNORMAL) Hemoglobin A1c (12/13/2014 11:56 AM EDT) Hemoglobin A1c 10.6(H) 4.3 - 5.6 % [facility] Comment: Reference Range: 4.3 - 5.6% [...] Mellitus, Diabetes Care 2013; 36: Suppl. 1, S67-69 Estimated Average Glucose 258 mg/dL [facility] Comment: eAG equivalents for HbA1c percentages: HbA1c(%) ?eAG(mg/dL) 6.0 ?126 6.5 ?140 7.0 ?154 7.5 ?169 8.0 ?183 8.5 ?197 9.0 ?212 9.5 ?226 10.0 ? 240 Limitations: The eAG calculation has not been validated on women, individuals below 18 years old and above 70 years old, and individuals with hemoglobinopathies. Additional resources are available on the ADA website: http://[employer]/DHMCadacalc Lucoi BIGGS, Jeannie J, Edwin R, et al. ??Translating the A1C assay into estimated average glucose values. ??Diabetes Care 2008:31(8):7008-6666. Blood specimen (specimen) 12/13/2014 11:56 AM EDT 12/13/2014 12:19 PM EDT Narrative Resulting Agency Comment Spec In Lab Moustapha Agosto MD CHEMISTRY ORDERABLES Performing Organization Address City/State/ZIP Co ca Phone Number [facility] documented in this encounter Visit Diagnoses Diagnosis Diabetes mellitus type 2, uncontrolled Type II or unspecified type diabetes mellitus without mention of complication, uncontrolled documented in this encounter Care Teams Pathology Supervisor Relationship Specialty Start Date End Date David Blue MD [address] [place] [address] PCP - General 04/01/10 02/02/19 documented as of this encounter
--- OUTSIDE RECORDS SUMMARY | 2024-05-19 20:42 | XMS_ITS | Encounter Summary ---
Author Organization [facility] Address [address] [place] [address] Care Team Providers Care Diversified Crops Supervisor Name Role Phone David Blue MD Primary Care Provider [phone] Encounter Details Date Type Department Care Team (Late st Contact Info) Description 07/03/2023 Lab Requisition [facility] Pathology & Laboratory Medicine - [facility] [address] [place], [place] [address] Outr Resulting Lab, Provider Social History Tobacco [...] Antigen Detection Negative Negative 07/03/2023 21:42 EST [facility] Urine URINE / Unknown 07/02/2023 1 8:28 EST 07/03/2023 21:19 EST us Provider Outr Resulting Lab MICROBIOLOGY - GENER AL ORDERABLES Final Result [facility] [address] [place] [address] documented in this encounter Visit Diagnoses Not on filedocumented in this encounter Care Teams Diversified Crops Supervisor Relationship Specialty Start Date End Date David Blue MD [address] [place] [address] PCP - General 07/15/09 documented as of this encounter
--- OUTSIDE RECORDS SUMMARY | 2024-05-19 20:42 | XMS_ITS | Encounter Summary ---
Author Organization [facility] [place] [address] Care Team Providers Care Trolley Car Mechanic Name Role Phone David Blue MD Primary Care Provider + [phone] Reason for Visit * Reason Onset Date Comments Other 03/21/2014 Motility Studies Canceled Encounter Details Date Type Department Care Team (Late st Contact Info) Description 03/21/2014 Telephone [place] [address] Mya Garzon Other (Motility Studies [...] 05/26/2024 1:10 PM [place] [address] Gavin Carrillo MD [facility] [place] [address] 06/05/2024 1:20 PM EST Office Visit Cardiology at [address] [phone] Milagros Hernandez MD [facility] [place] [address] Scheduled Procedures Name Priority Associated Diagnoses Date/Ti me EGD, UPPER GI ENDOSCOPY (WRV U 2.09) Peptic stricture of esophagus documented as of this encounter Visit Diagnoses Not on filedocumented in this encounter Care Teams Trolley Car Mechanic Relationship Specialty Start Date End Date David Blue MD [address] [place] [address] PCP - General 04/01/10 02/02/19 documented as of this encounter
--- OUTSIDE RECORDS SUMMARY | 2024-05-19 20:42 | XMS_ITS | Encounter Summary ---
Author Organization [facility] Address [address] [place] [address] Care Team Providers Care Grocery Shopper Name Role Phone David Blue MD Primary Care Provider [phone] Encounter Details Date Type Department Care Team (Late st Contact Info) Description 01/06/2023 Lab Requisition [facility] Pathology & Laboratory Medicine - [facility] [address] [place], [place] [address] Outr Resulting Lab, Provider Social History Tobacco [...] 19 - 88 pg/mL 01/06/2023 18:58 EDT [facility] Blood VENOUS BLOOD / Unknown 01/05/2023 11:20 EDT 01/06/2023 17:02 EDT us Provider Outr Resulting Lab CHEMISTRY & BLOOD GA S ORDERABLES Final Result [facility] [address] [place] [address] documented in this encounter Visit Diagnoses Not on filedocumented in this encounter Care Teams Grocery Shopper Relationship Specialty Start Date End Date David Blue MD [address] [place] [address] PCP - General 07/15/09 documented as of this encounter
--- OUTSIDE RECORDS SUMMARY | 2024-05-19 20:42 | XMS_ITS | Encounter Summary ---
Author Organization [facility] Address [facility] [place] [address] Care Team Providers Care Seed District Sales Manager Name Role Phone David Blue MD Primary Care Provider + [phone] Reason for Referral * Surgical - Closed Specialty Diagnoses / Procedures Referred By Esperanza rodríguez Referred To Contact General Surgery Diagnoses Esophageal reflux David Dejesus MD [facility] [place] [address] Baljinder Maharaj MD [facility] [place] [address] Referral ID Status Reason Start Date Expiration Date V isits Requested Visits Authorized [id number] Closed Specialty Service Requested 01/16/2014 07/15/2014 1 1 Encounter Details Date Type Department Care Team (Late st Contact Info) Description 01/16/2014 Orders [place] [phone] David Dejesus MD [facility] [place] [address] Esophageal reflux (Primary Dx) Social History Tobacco [...] 05/26/2024 1:10 PM [place] [phone] Gavin Carrillo MD [facility] [place] [address] 06/05/2024 1:20 PM EST Office Visit Cardiology at [address] [phone] Milagros Hernandez MD [facility] [place] [address] Scheduled Orders Name Type Priority Associated Diagnoses [...] Primary documented in this encounter Care Teams Seed District Sales Manager Relationship Specialty Start Date End Date David Blue MD [address] [place] [address] PCP - General 04/01/10 02/02/19 documented as of this encounter
--- OUTSIDE RECORDS SUMMARY | 2024-05-19 20:42 | XMS_ITS | Encounter Summary ---
Author Organization [facility] Address [address] [place] [address] Care Team Providers Care Dining Room Manager Name Role Phone David Blue MD Primary Care Provider [phone] Encounter Details Date Type Department Care Team (Late st Contact Info) Description 10/30/2003 Results Only [facility] - Maple conversion [address] [place] [address] Sergey Kraus, DO [address] [facility] ,[address] [place] [address] Social History Tobacco Use Types [...] ? JENNIFER IRVING ? Accession #: ? [id number] ? : ? 1960 (Age: 43) ??F [...] specimen is entirely submitted as (C). ??(Dr. Haney-OFELIA)/[facility] End of Report [facility] 10/30/2003 10/30/2003 14: 43 EDT us Sergey Kraus DO PATHOLOGY ORDERABLES Fi nal Result [facility] [address] [place] [address] documented in this encounter Visit Diagnoses Not on filedocumented in this encounter Care Teams Dining Room Manager Relationship Specialty Start Date End Date David Blue MD [address] [place] [address] PCP - General 07/15/09 documented as of this encounter
--- OUTSIDE RECORDS SUMMARY | 2024-05-19 20:42 | XMS_ITS | Encounter Summary ---
Author Organization [facility] Address [facility] [place] [address] Care Team Providers Care Organ Grinder Name Role Phone David Blue MD Primary Care Provider [phone] Encounter Details Date Type Department Care Team (Late st Contact Info) Description 12/24/2014 Orders Only Gastroenterology at [place] [phone] David Dejesus MD [facility] [place] [address] Social History Tobacco Use Types Packs/Day Years [...] 05/26/2024 1:10 PM EST Appointment Radiology at [place] [phone] Gavin Carrillo MD [facility] [place] [address] 06/05/2024 1:20 PM EST Office Visit Cardiology at [address] [phone] Milagros Hernandez MD [facility] [place] [address] Scheduled Procedures Name Priority Associated Diagnoses Date/Ti me EGD, UPPER GI ENDOSCOPY (WRV U 2.09) Peptic stricture of esophagus documented as of this encounter Visit Diagnoses Not on filedocumented in this encounter Care Teams Organ Grinder Relationship Specialty Start Date End Date David Blue MD [address] [place] [address] PCP - General 04/01/10 02/02/19 documented as of this encounter
--- OUTSIDE RECORDS SUMMARY | 2024-05-19 20:42 | XMS_ITS | Encounter Summary ---
Author Organization [facility] Address [address] [place] [address] Care Team Providers Care Human Resources Team Member Name Role Phone David Blue MD Primary Care Provider [phone] Encounter Details Date Type Department Care Team (Late st Contact Info) Description 05/08/2003 Results Only [facility] [place] conversion [address] [place] [address] Rock Samson MD [address] [place], [place] [address] Social History Tobacco Use Types Packs/Day Years [...] Final Resul t [facility] [address] [place] [address] documented in this encounter Visit Diagnoses Not on filedocumented in this encounter Care Teams Human Resources Team Member Relationship Specialty Start Date End Date David Blue MD [address] [place] [address] PCP - General 07/15/09 documented as of this encounter
--- OUTSIDE RECORDS SUMMARY | 2024-05-19 20:42 | XMS_ITS | Encounter Summary ---
Author Organization [facility] Address [facility] [place] [address] Care Team Providers Care Dry Press Operator Name Role Phone David Blue MD Primary Care Provider + [phone] Reason for Visit * Reason Comments Gastroesophageal Reflux Encounter Details Date Type Department Care Team (Late st Contact Info) Description 03/20/2014 1:00 PM EST Office [place] [address] Baljinder Maharaj MD [facility] [place] [address] GERD (gastroesophageal reflux disease); Farrell's esophagus Discharge [...] visit was 30 minutes, all spent in [id number] discussion with the patient and her and son. documented in this encounter Plan of Treatment Upcoming Encounters Date Type Department Care Team (Late st Contact Info) Description 05/26/2024 1:10 PM EST [place] [address] Gavin Carrillo MD [facility] [place] [address] 06/05/2024 1:20 PM EST Office Visit Cardiology at [address] [phone] Milagros Hernandez MD [facility] [place] [address] Scheduled Procedures Name Priority Associated Diagnoses Date/Ti me EGD, UPPER GI ENDOSCOPY (WRV U 2.09) Peptic stricture of esophagus documented as of this encounter Visit Diagnoses Diagnosis GERD (gastroesophageal reflux disease) Esophageal reflux Farrell's esophagus documented in this encounter Care Teams Dry Press Operator Relationship Specialty Start Date End Date David Blue MD [address] [place] [address] PCP - General 04/01/10 02/02/19 documented as of this encounter
== END 2024-05-19 20:18 | disposition home or self-care (01) ==
LOC: NCHCN 20:17
PROVIDERS: PCP Nurse Practitioner Family; Visit Provider Nurse Practitioner Family
CPT/HCPCS: 82306; 85379

== ENCOUNTER 2024-08-09 17:56 | Outpatient (REF) | payer MEDICAID, SELFPAY ==
[2024-08-09 17:24] LABS: ALT 20 U/L (14-59); AST 15 U/L (15-37); Albumin 3.1 g/dL (3.4-5.0); Alkaline Phosphatase 98 U/L (46-116); Anion Gap 9.4 mmol/L (3-11); BUN 14 mg/dL (7-18); Bilirubin, Total 0.4 mg/dL (0.2-1.0); CO2 29.6 mmol/L (21.0-32.0); CREATININE 0.8 mg/dL (0.55-1.02); Calcium 9.8 mg/dL (8.5-10.1); Chloride 102 mmol/L (98-107); Estimated GFR 82.23 (mL/min/1.73m2); Glucose 147 mg/dL (74-106); PHOSPHORUS 4.3 mg/dL (2.6-4.7); Potassium 4.8 mmol/L (3.5-5.1); Sodium 141 mmol/L (136-145); Total Protein 6.1 g/dL (6.4-8.2)
[2024-08-09 17:47] LABS: Iron 60 ug/dL (50-170)
[2024-08-09 18:14] LABS: Vitamin B12 461 pg/mL (193-986)
[2024-08-09 19:38] LABS: Hemoglobin A1C 6.3 % (<5.7)
== END 2024-08-09 17:57 | disposition home or self-care (01) ==
LOC: LBN 17:56
PROVIDERS: PCP Nurse Practitioner Family; Visit Provider Family Medicine Geriatric Medicine
DX: E11.65 Type 2 diabetes mellitus with hyperglycemia (principal); Z98.0 Intestinal bypass and anastomosis status
CPT/HCPCS: 80053; 82607; 83036; 83540; 84100

== ENCOUNTER 2024-08-27 06:31 | Emergency (ER) | payer MEDICAID, SELFPAY ==
[2024-08-27 06:31] VITALS: BP 126/54; PULSE 66; RESP 18; TEMP 36.8; O2SAT 94
--- NOTE | 2024-08-27 06:55 | W.ED.GENAD ---
Discharge Plan Disposition Patient Disposition: Home Condition: Good Discharge Details Clinical Impression: PEG tube malfunction Primary Care Provider: Ana Gillespie ED Provider: Ismael Eason Home Meds and New Rx's Prescriptions: No Action bupropion HCl 100 mg tablet 300 mg PO DAILY Patient Comments: via g-tube, per pcp ov notes 12/09/22 RH protein Powder See Rx Instructions PO .COMPLEX Rx Instructions: 2 scoops daily duloxetine [Cymbalta] 20 mg capsule,delayed release(DR/EC) 20 mg PO HS Patient Comments: TAKE 1 CAPSULE PER DAY VIA G-TUBE IN THE EVENING duloxetine [Cymbalta] 60 mg capsule,delayed release(DR/EC) 60 mg PO DAILY Rx Instructions: Given via G-tube Entresto 24-26 mg tablet 1 tab feeding tube DAILY Patient Comments: via g-tube Jardiance 10 mg tablet 10 mg feeding tube DAILY atorvastatin 80 mg tablet 80 mg feeding tube QPM valproic acid (as sodium salt) 250 mg/5 mL solution 300 mg feeding tube TID Rx Instructions: 6mls TID metoprolol succinate 50 mg tablet extended release 24 hr 25 mg PO BID Rx Instructions: Given via G-tube sucralfate 1 gram tablet 1 g PO QID Patient Comments: TAKE ONE TABLET BY MOUTH FOUR TIMES A DAY ferrous sulfate 300 mg (60 mg iron)/5 mL liquid 300 mg feeding tube .QOD Patient Comments: TAKE 5ML VIA G-TUBE EVERY OTHER DAY Humulin N NPH Insulin KwikPen 100 unit/mL (3 mL) insulin pen See Rx Instructions .ROUTE .COMPLEX Qty: 0 0RF Rx Instructions: 20 units at 11 am followed by sliding scale at 3 pm (5 units for blood sugar of 250 plus 1 additional unit for any 20 points that the blood sugar is above 250) ibuprofen 100 mg/5 mL suspension 600 mg PO Q8H PRN guaifenesin 200 mg/5 mL liquid 200 mg feeding tube Q4H PRNQty: 118 0RF aspirin 81 mg tablet,chewable 81 mg feeding tube DAILY Qty: 30 0RF bisacodyl 10 mg suppository 10 mg CA DAILY PRN quetiapine 100 mg tablet 300 mg feeding tube DAILY folic acid 1 mg Tablet 1 mg feeding tube DAILY albuterol sulfate 90 mcg/actuation HFA aerosol inhaler 2 puff inhalation Q4H PRN acetaminophen 500 mg/15 mL liquid 1,000 mg feeding tube Q8H PRN nystatin 100,000 unit/gram powder 1 applic TOPICAL TID PRN Patient Comments: APPLY TO BUTTOCKS THREE TIMES A DAY NEEDED pantoprazole [address] for susp in packet 40 mg G-tube DAILY Patient Comments: Take 1 packet via g-tube twice a day Administer in 10 mL of apple juice via g-tub, then follow with another 10 mL. nystatin 100,000 unit/gram cream 1 applic TOPICAL TID PRN Patient Comments: APPLY A SMALL AMOUNT TO AFFECTED AREA(S) ON BUTTOCKS THREE TIMES A DAY NEEDED melatonin 3 mg tablet 9 mg feeding tube HS Patient Comments: TAKE THREE TABLETS VIA G-TUBE EVERY NIGHT DIRECTED insulin glargine [Lantus Solostar U-100 Insulin] 100 unit/mL (3 mL) insulin pen 10 unit SUBCUT QPM Patient Comments: INJECT 10 UNITS UNDER THE SKIN NIGHTLY DIRECTED ondansetron HCl 4 mg tablet 4 mg feeding tube Q6H PRN Patient Comments: TAKE ONE TABLET VIA G-TUBE EVERY 8 HOURS NEEDED nystatin 100,000 unit/gram ointment 1 applic TOPICAL BID Patient Comments: APPLY TO AFFECTED AREA(S) TWO TIMES A DAY (DME) Space Chamber Spacer See Rx Instructions .Route Qty: 1 0RF Rx Instructions: As directed doxycycline hyclate 100 mg Capsule 100 mg feeding tube BID Qty: 7 0RF Discharge Instructions Additional Instructions: At this time your PEG tube has been replaced. Unfortunately we only have an 18 Macedonian single-lumen tube and hospital does not currently have any 16 Macedonian triple-lumen tubes. We have given you an 18 Macedonian single-lumen tube, and you tolerated the procedure well. If you notice any worsening of your symptoms, or any new symptoms such as vomiting, diarrhea, fever, chills, shortness of breath, chest pain, numbness, weakness, or fainting , please return immediately to the emergency department for reevaluation. Please follow up with your primary care provider as soon as possible for reassessment and reevaluation. As always, it was a pleasure participating in your medical care today. Referrals: Ana Gillespie [Primary Care Provider] - Discharge Data Discharge Date/Time-TO BE ENTERED AT DEPARTURE: 08/27/24 08:38 HPI General Date/Time Provider Initiated Documentation: 08/27/24 06:34. HPI Narrative: This is a 64-year-old female with a past medical history of type 2 diabetes, COPD, heart failure, Farrell's esophagus, diabetes, bipolar, previous AL, esophageal strictures with a chronic G-tube which is a 16 Macedonian retained nonlow-profile triple-lumen device per [facility] record, who [facility], who presents today after her G-tube was pulled out. Patient has had a G-tube for years, and this specific tube has been in for months without any complication. When she went to bed the tube was in place, when she woke up it was out of her abdomen, and deflated. She denies any significant pain or vomiting. No other complaints. She presents here via EMS for replacement of tube. Related Data Home Medications ?Medication ?Instructions ?Recorded ?Confirmed sucralfate 1 gram tablet 1 g PO QID 08/08/22 08/29/24 atorvastatin 80 mg tablet 80 mg feeding tube QPM 11/18/22 08/29/24 empagliflozin 10 mg tablet 10 mg feeding tube DAILY 11/18/22 08/29/24 (Jardiance) metoprolol succinate 50 mg 25 mg PO BID 11/18/22 08/29/24 tablet,extended release 24 hr sacubitril 24 mg-valsartan 26 mg 1 tab feeding tube DAILY 11/18/22 08/29/24 tablet (Entresto) valproic acid (as sodium salt) 250 300 mg feeding tube TID 11/18/22 08/29/24 mg/5 mL oral solution bupropion HCl 100 mg tablet 300 mg PO DAILY 12/16/22 08/29/24 protein See Rx Instructions PO .COMPLEX 12/16/22 08/29/24 ferrous sulfate 300 mg (60 mg 300 mg feeding tube .QOD 01/31/23 08/29/24 iron)/5 mL oral liquid insulin NPH isoph U-100 human 100 See Rx Instructions .Route 02/28/23 08/29/24 unit/mL (3 mL) subcutaneous pen .COMPLEX #0 mL (Humulin N NPH U-100 Insulin KwikPen) ibuprofen 100 mg/5 mL oral 600 mg PO Q8H PRN 04/04/23 08/29/24 suspension nystatin 100,000 unit/gram topical 1 applic topical TID PRN 05/03/23 08/29/24 cream nystatin 100,000 unit/gram topical 1 applic topical TID PRN 05/03/23 08/29/24 powder pantoprazole 40 mg granules 40 mg G-tube DAILY 05/03/23 08/29/24 delayed-release for susp in packet insulin glargine 100 unit/mL (3 10 unit subcut QPM 05/04/23 08/29/24 mL) subcutaneous pen (Lantus Solostar U-100 Insulin) melatonin 3 mg tablet 9 mg feeding tube HS 05/04/23 08/29/24 ondansetron HCl 4 mg tablet 4 mg feeding tube Q6H PRN 05/08/23 08/29/24 aspirin 81 mg chewable tablet 81 mg feeding tube DAILY #30 tabs 07/05/23 08/29/24 guaifenesin 200 mg/5 mL oral liquid 200 mg (5 mL) feeding tube Q4H PRN 07/05/23 08/29/24 #118 mL duloxetine 20 mg capsule,delayed 20 mg PO HS 01/24/24 08/29/24 release (Cymbalta) duloxetine 60 mg capsule,delayed 60 mg PO DAILY 01/24/24 08/29/24 release (Cymbalta) nystatin 100,000 unit/gram topical 1 applic topical BID 04/19/24 08/29/24 ointment doxycycline hyclate 100 mg capsule 100 mg feeding tube BID #7 caps 04/21/24 08/29/24 inhalational spacing device (Space #1 ea 04/21/24 08/29/24 Chamber) acetaminophen 500 mg/15 mL oral 1,000 mg feeding tube Q8H PRN 08/29/24 08/29/24 liquid albuterol sulfate 90 mcg/actuation 2 puff inhalation Q4H PRN 08/29/24 08/29/24 aerosol inhaler bisacodyl 10 mg rectal suppository 10 mg CA DAILY PRN 08/29/24 08/29/24 folic acid 1 mg tablet 1 mg feeding tube DAILY 08/29/24 08/29/24 quetiapine 100 mg tablet 300 mg feeding tube DAILY 08/29/24 08/29/24 Previous Rx's ?Medication ?Instructions ?Recorded insulin NPH isoph U-100 human 100 See Rx Instructions .Route 02/28/23 unit/mL (3 mL) subcutaneous pen .COMPLEX #0 mL (Humulin N NPH U-100 Insulin KwikPen) aspirin 81 mg chewable tablet 81 mg feeding tube DAILY #30 tabs 07/05/23 guaifenesin 200 mg/5 mL oral liquid 200 mg (5 mL) feeding tube Q4H PRN 07/05/23 #118 mL doxycycline hyclate 100 mg capsule 100 mg feeding tube BID #7 caps 04/21/24 inhalational spacing device (Space #1 ea 04/21/24 Chamber) Allergies Allergy/AdvReac Type Severity Reaction Status Date / Time metformin AdvReac Unknown Diarrhea Verified 08/29/24 07:10 meperidine AdvReac gi upset Verified 08/29/24 07:10 General Stated Complaint: Abd Prob ASHANTI: 4 Exam Narrative Exam Narrative: 1.Const: Well-nourished, Well-developed, appearing stated age 2.Eyes: PERRL, no conjunctival injection, and symmetrical lids. 3.ENT: Atraumatic external nose and ears. Moist MM. Neck: Symmetric, trachea midline, No thyromegaly. 4.CVS: +S1/S2, Peripheral pulses 2+ and equal in all extremities. Brisk capillary refill in all extremities. 5.RESP: Unlabored respiratory effort. Clear to auscultation bilaterally. No wheezes rales or rhonchi 6.GI: Soft, Nontender/Nondistended, No hepatosplenomegaly. No guarding or rebound. Stoma site from G-tube demonstrates mild erythema, small punctate lesion of blood. No active drainage or discharge otherwise. No focal tenderness 7.MSK: Normocephalic/Atraumatic, Extremities w/o deformity or ttp No cyanosis or clubbing, Normal movement of all extremities 8.Skin: Warm, Dry. No rashes or lesions. 9.Neuro: intelligence officer basic II-XII grossly intact. Sensation grossly intact, no focal neurologic deficits. 10.Psych: (AAO) x3. Appropriate mood and affect Course Vital Signs Vital signs: Vital Signs Temperature 36.8 C 08/27/24 06:31 Pulse 66 08/27/24 06:31 Respiratory Rate 18 08/27/24 06:31 Blood Pressure 126/54 L 08/27/24 06:31 Pulse Oximetry 94 08/27/24 06:31 Temperature 36.8 C 08/27/24 06:31 Temperature Source Oral 04/20/25 06:31 Pulse 66 08/27/24 06:31 Respiratory Rate 18 08/27/24 06:31 Blood Pressure 126/54 L 08/27/24 06:31 Pulse Oximetry 94 08/27/24 06:31 Pain Level 0 08/27/24 06:31 Procedure Feeding Tube Replacement Date of Procedure: 08/27/24 Time of Procedure: 07:34 Provider that performed the procedure: Ismael Eason Type of Tube: gastrostomy Insertion Site Prior to Procedure: clean and erythematous Tube Used for Reinsertion: other (Thai 18 Macedonian single-lumen 3.5 cm low-profile) Macedonian Tube Size: 18 Balloon Size (mls): 10 Verification of Placement: gastrograffin injection Tube Secured by: tape/dressing Patient Tolerated Procedure: well and no complications Procedure Description/Note: Since the patient normally has a 16 Macedonian, we took a 14-Macedonian Mcrae and with viscous lidocaine gently inserted that in the site with no difficulty or resistance whatsoever. Stomach contents were aspirated. We then took a 16 Macedonian and perform the same, with good stomach contents aspirated. We then used the 18-Macedonian G-tube and successfully inserted. Balloon was gently inflated to 10 cc. No pain or discomfort whatsoever. Stomach contents were noted on aspiration. Medical Decision Making This is a 64-year-old female with a past medical history of type 2 diabetes, COPD, heart failure, Farrell's esophagus, diabetes, bipolar, previous AL, esophageal strictures with a chronic G-tube which is a 16 Macedonian retained nonlow-profile triple-lumen device per [facility] record, who resides at [facility], who presents today after her G-tube was pulled out. Patient has had a G-tube for years, and this specific tube has been in for months without any complication. When she went to bed the tube was in place, when she woke up it was out of her abdomen, and deflated. She denies any significant pain or vomiting. No other complaints. She presents here via EMS for replacement of tube. Physical exam demonstrates an intact stoma site, no active bleeding. Stoma is pink, moist, and demonstrates a small amount of a punctate bit of blood, but no active bleeding. No tenderness. We will check the stockroom to see if we have an identical G-tube. She was not sent with any. We will replace it if we do. Thai 18 Macedonian single-lumen 3.5 cm low-profile is the only/smallest G-tube size that we have. We do not have any 16 Macedonian. Since the patient normally has a 16 Macedonian, we took a 14-Macedonian Mcrae and with viscous lidocaine gently inserted that in the site with no difficulty or resistance whatsoever. Stomach contents were aspirated. We then took a 16 Macedonian and perform the same, with good stomach contents aspirated. We then used the 18-Macedonian G-tube and successfully inserted. Balloon was gently inflated to 10 cc. No pain or discomfort whatsoever. Stomach contents were noted on aspiration. After this, Gastrografin injection was performed for confirmation of placement. Patient tolerated procedure well. She will be discharged back to [facility]. I have extensively reviewed the treatment plan and discharge instructions with the patient. I have addressed all patient concerns at this time. The patient was made aware of what symptoms to monitor for that would warrant a return to the emergency department. Discussed the plan with the patient, they demonstrate verbal understanding and agreement with our assessment and plan at this time. The documentation in this chart was dictated using [employer] dictation software. Please excuse any dictation errors. Quality:SDOH Health Related Social Needs: No Data to Display PFSH All Active Problems (Updated 08/31/24 @ 00:03 by HELDER SRIVASTAVA) Acute exacerbation of chronic obstructive pulmonary disease (Acute) Left lower lobe pneumonia (Acute) PEG tube malfunction (Acute) Dilatation of esophagus (Acute) History of total right hip replacement (Acute 03/01/24) As treatment for R femoral neck fracture Medical History COPD (chronic obstructive pulmonary disease) with acute bronchitis Vitamin D deficiency Hypotension HFrEF (heart failure with reduced ejection fraction) Bronchiolitis COPD with acute exacerbation Myocardial injury Acute respiratory failure with hypoxia and hypercarbia Acute on chronic respiratory failure with hypoxia and hypercapnia Pneumonitis Aspiration pneumonia Gastrostomy tube obstruction Lab test positive for detection of COVID-19 virus Acute on chronic respiratory failure with hypoxia Esophageal stricture Chronic systolic (congestive) heart failure Insulin dependent type 2 diabetes mellitus Aspiration pneumonia COVID Pre-op evaluation Abnormal chest xray H/O: pneumonia Stress-induced cardiomyopathy acute [place] [facility] pressors, EF 25%, has since recovered RH NSTEMI (non-ST elevated myocardial infarction) Per pt. states she did not have a heart attack Acute cardiogenic pulmonary edema Acute metabolic encephalopathy Bilateral pneumonia Acute respiratory failure with hypoxia Hypokalemia Closed fracture of neck of left femur s/p Percutaneous Screw Fixation 08/09/22 Constipation Drug-induced parkinsonism Neuroleptic induced parkinsonism Diabetes mellitus type 2 in obese Tubular adenoma (~06/10/21) Hyperplastic colon polyp (~06/10/21) Erosive esophagitis Esophageal ulcer with bleeding Chronic iron deficiency anemia Farrell's esophagus Chronic diarrhea Black tarry stools Pleural effusion Leukocytosis ETOH abuse Ventral hernia Chronic pancreatitis due to acute alcohol intoxication Alcohol abuse Per pt. states she has never had an issues with any subtances Cholelithiasis Atrial flutter History of pilonidal cyst Diabetes Bipolar 1 disorder Anxiety Depression Surgical History PEG (percutaneous endoscopic gastrostomy) status History of total left hip arthroplasty (01/19/23) Status post hip surgery S/P laparoscopic procedure cyst removed from stomach per patient S/P surgical removal of pilonidal cyst History of esophagogastroduodenoscopy (EGD) (~06/10/21) History of colonoscopy with polypectomy (~06/10/21) History of hysterectomy History of tonsillectomy History of section Family History Father Hypertension Diabetes Heart disease Social History (Updated 08/29/24 @ 17:43 by Moustapha Guerra) Smoking/Tobacco Use Status: Former Tobacco Use Quit Date: 02/07/21 Smoking risk assessment performed?: Yes Alcohol Intake: never Drug use: Never Substance use type: does not use Household members: spouse Housing: senior care Number of Children: 2 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
--- NOTE | 2024-08-27 07:15 | DI.RAD_ITS ---
Exam(s) XR ABDOMEN FLAT PLATE EXAM: XR ABDOMEN FLAT PLATE CLINICAL HISTORY: post peg tube placement, please use contrast. TECHNIQUE: 2D digital imaging was performed. COMPARISON: CR,XR XR ABDOMEN FLAT PLATE from 04/04/2023 FINDINGS: Single AP supine view performed after injection of radiopaque contrast through the indwelling PEG tub e. All of the injected contrast is within the nondilated stomach lumen. There is no extravasation evide nt. The bowel gas pattern is nonspecific in the supine position. There are bilateral hip prostheses noted. IMPRESSION: No extravasation of contrast from the gastric lumen, this contrast having been injected through the i ndwelling gastric PEG tube DATA REPOSITORY: RADIATION DOSE DELIVERED:
[2024-08-27] MEDS: Lidocaine 2% Viscous 15 ML CUP (07:31)
--- NOTE | 2024-08-27 07:31 | NUR.NOTE ---
Nursing Note:Thai button replaced with 18fr by Dr. Eason. Able to aspirate stomach contents. Pt going for XR to confirm placement.
[2024-08-27] MEDS: Omnipaque 350 MG/ML 50 ML BTL IJ (08:12)
--- NOTE | 2024-08-27 08:21 | DI.VRAD_ITS ---
PROCEDURE INFORMATION: Exam: XR Abdomen Exam date and time: 08/27/2024 8:07 AM Age: 64 years old Clinical indication: Device placement; Gi device; Peg tube TECHNIQUE: Imaging protocol: Radiologic exam of the abdomen. Views: Frontal supine view of the abdomen. 1 View. COMPARISON: CR XR ABDOMEN FLAT PLATE 04/04/2023 9:06 PM FINDINGS: Percutaneous gastrostomy projects over the expected location of the stomach. Contrast in the stomach. IMPRESSION: Percutaneous gastrostomy as above. Dictated and Authenticated by: Laila Gomez MD. Orderin Yumi Guevara MD
[2024-08-27 08:37] VITALS: BP 128/80; PULSE 78; RESP 18; TEMP 36.6; O2SAT 99
== END 2024-08-27 08:38 | disposition home or self-care (01) ==
PROVIDERS: Emergency Provider Student in an Organized Health Care Education/Training Program; PCP Nurse Practitioner Family
DX: K94.23 Gastrostomy malfunction (principal)
CPT/HCPCS: 99283 ×2; 43762; 74018; Q9967

== ENCOUNTER 2024-08-29 07:06 | Inpatient (IN) | payer MEDICAID, SELFPAY ==
[2024-08-29] VITALS (27 sets, daily range): BP systolic 92–168; BP diastolic 45–84; PULSE 68–88; RESP 2–25; TEMP 35.5–37.1; O2SAT 88–100
--- NOTE | 2024-08-29 07:00 | RT.EKG_ITS ---
APPROVED REPORT Exam: Resting ECG Reason for Exam: sob Patient Location: E HR:69 bpm ECG Measurements Heart Rate 69 AXIS AR 164 P 56 QRSd 75 QRS 71 QT 397 T 23 QTc 424 Conclusion Sinus rhythm, rate 69 No interval abnormalities T wave flattening/inversion lead III No STEMI No significant changes from priors
--- NOTE | 2024-08-29 07:15 | DI.RAD_ITS ---
Exam(s) XR CHEST 2V PA LATERAL EXAM: XR CHEST 2V PA LATERAL CLINICAL HISTORY: Productive cough TECHNIQUE: 2D digital imaging was performed of the chest. Two images were obtained. PA and lateral views were obtained. COMPARISON: CR,XR XR CHEST 2V PA LATERAL from 05/01/2024 FINDINGS: MEDIASTINUM: Normal. HEART: Normal. PULMONARY VASCULATURE: Normal. LUNGS: There is a left lower lobe infiltrate suspicious for pneumonia. The right lung is clear. PLEURAL SPACE: No pleural effusion or pneumothorax. BONE:Within normal limits for the patient's age. OTHER FINDINGS:Normal. IMPRESSION: Left lower lobe infiltrate suspicious for pneumonia. DATA REPOSITORY: RADIATION DOSE DELIVERED:
--- NOTE | 2024-08-29 07:24 | ED.GENADUL_ITS ---
Discharge Plan Disposition Patient Disposition: Admit to [facility] Condition: Improving Condition: Improving Discharge Details Chief Complaint: RespSymp Clinical Impression: Acute and chronic respiratory failure with hypoxia, Left lower lobe pneumonia, Acute exacerbation of chronic obstructive pulmonary disease Primary Care Provider: Ana Gillespie ED Provider: Gaby Houston Home Meds and New Rx's Prescriptions: No Action bupropion HCl 100 mg tablet 300 mg PO DAILY Patient Comments: via g-tube, per pcp ov notes 12/09/22 RH protein Powder See Rx Instructions PO .COMPLEX Rx Instructions: 2 scoops daily duloxetine [Cymbalta] 20 mg capsule,delayed release(DR/EC) 20 mg PO HS Patient Comments: TAKE 1 CAPSULE PER DAY VIA G-TUBE IN THE EVENING duloxetine [Cymbalta] 60 mg capsule,delayed release(DR/EC) 60 mg PO DAILY Rx Instructions: Given via G-tube Entresto 24-26 mg tablet 1 tab feeding tube DAILY Patient Comments: via g-tube Jardiance 10 mg tablet 10 mg feeding tube DAILY atorvastatin 80 mg tablet 80 mg feeding tube QPM valproic acid (as sodium salt) 250 mg/5 mL solution 300 mg feeding tube TID Rx Instructions: 6mls TID metoprolol succinate 50 mg tablet extended release 24 hr 25 mg PO BID Rx Instructions: Given via G-tube sucralfate 1 gram tablet 1 g PO QID Patient Comments: TAKE ONE TABLET BY MOUTH FOUR TIMES A DAY ferrous sulfate 300 mg (60 mg iron)/5 mL liquid 300 mg feeding tube .QOD Patient Comments: TAKE 5ML VIA G-TUBE EVERY OTHER DAY Humulin N NPH Insulin KwikPen 100 unit/mL (3 mL) insulin pen See Rx Instructions .ROUTE .COMPLEX Qty: 0 0RF Rx Instructions: 20 units at 11 am followed by sliding scale at 3 pm (5 units for blood sugar of 250 plus 1 additional unit for any 20 points that the blood sugar is above 250) ibuprofen 100 mg/5 mL suspension 600 mg PO Q8H PRN guaifenesin 200 mg/5 mL liquid 200 mg feeding tube Q4H PRNQty: 118 0RF aspirin 81 mg tablet,chewable 81 mg feeding tube DAILY Qty: 30 0RF bisacodyl 10 mg suppository 10 mg MO DAILY PRN quetiapine 100 mg tablet 300 mg feeding tube DAILY folic acid 1 mg Tablet 1 mg feeding tube DAILY albuterol sulfate 90 mcg/actuation HFA aerosol inhaler 2 puff inhalation Q4H PRN acetaminophen 500 mg/15 mL liquid 1,000 mg feeding tube Q8H PRN nystatin 100,000 unit/gram powder 1 applic TOPICAL TID PRN Patient Comments: APPLY TO BUTTOCKS THREE TIMES A DAY NEEDED pantoprazole [address] for susp in packet 40 mg G-tube DAILY Patient Comments: Take 1 packet via g-tube twice a day Administer in 10 mL of apple juice via g-tub, then follow with another 10 mL. nystatin 100,000 unit/gram cream 1 applic TOPICAL TID PRN Patient Comments: APPLY A SMALL AMOUNT TO AFFECTED AREA(S) ON BUTTOCKS THREE TIMES A DAY NEEDED melatonin 3 mg tablet 9 mg feeding tube HS Patient Comments: TAKE THREE TABLETS VIA G-TUBE EVERY NIGHT DIRECTED insulin glargine [Lantus Solostar U-100 Insulin] 100 unit/mL (3 mL) insulin pen 10 unit SUBCUT QPM Patient Comments: INJECT 10 UNITS UNDER THE SKIN NIGHTLY DIRECTED ondansetron HCl 4 mg tablet 4 mg feeding tube Q6H PRN Patient Comments: TAKE ONE TABLET VIA G-TUBE EVERY 8 HOURS NEEDED nystatin 100,000 unit/gram ointment 1 applic TOPICAL BID Patient Comments: APPLY TO AFFECTED AREA(S) TWO TIMES A DAY (DME) Space Chamber Spacer See Rx Instructions .Route Qty: 1 0RF Rx Instructions: As directed doxycycline hyclate 100 mg Capsule 100 mg feeding tube BID Qty: 7 0RF HPI General Mode of arrival: EMS . Date/Time Provider Initiated Documentation: 08/29/24 07:18 . Limitations to Documentation: no limitations . Information obtained by: patient, EMS and old records reviewed . HPI Narrative: HISTORY OF PRESENT ILLNESS This is a 64-year-old female patient with a history of COPD, PEG tube dependence secondary to Farrell's esophagus and esophageal strictures, a history of heart failure, mild diabetes, and bipolar disorder, who presents to the emergency room for evaluation of cough, nausea, and COPD. She experienced a productive cough throughout the previous night, expectorating green and yellow sputum without any blood. She continues to experience nausea, which started last night and has persisted into today. She reports no rhinorrhea, nasal congestion, fever, chills, abdominal pain, or diarrhea. She also reports no dysuria. She is currently on 2 liters of oxygen at night and has a history of COPD. She has been abstinent from smoking for the past 2.5 years. She possesses a nebulizer but does not use it frequently and did not use it this morning. Staff this morning noted her oxygen to be low at 77%, prompting them to increase her oxygen to 5 L by nasal cannula Related Data Home Medications ?Medication ?Instructions ?Recorded ?Confirmed sucralfate 1 gram tablet 1 g PO QID 08/08/22 08/29/24 atorvastatin 80 mg tablet 80 mg feeding tube QPM 11/18/22 08/29/24 empagliflozin 10 mg tablet 10 mg feeding tube DAILY 11/18/22 08/29/24 (Jardiance) metoprolol succinate 50 mg 25 mg PO BID 11/18/22 08/29/24 tablet,extended release 24 hr sacubitril 24 mg-valsartan 26 mg 1 tab feeding tube DAILY 11/18/22 08/29/24 tablet (Entresto) valproic acid (as sodium salt) 250 300 mg feeding tube TID 11/18/22 08/29/24 mg/5 mL oral solution bupropion HCl 100 mg tablet 300 mg PO DAILY 12/16/22 08/29/24 protein See Rx Instructions PO .COMPLEX 12/16/22 08/29/24 ferrous sulfate 300 mg (60 mg 300 mg feeding tube .QOD 01/31/23 08/29/24 iron)/5 mL oral liquid insulin NPH isoph U-100 human 100 See Rx Instructions .Route 02/28/23 08/29/24 unit/mL (3 mL) subcutaneous pen .COMPLEX #0 mL (Humulin N NPH U-100 Insulin KwikPen) ibuprofen 100 mg/5 mL oral 600 mg PO Q8H PRN 04/04/23 08/29/24 suspension nystatin 100,000 unit/gram topical 1 applic topical TID PRN 05/03/23 08/29/24 cream nystatin 100,000 unit/gram topical 1 applic topical TID PRN 05/03/23 08/29/24 powder pantoprazole 40 mg granules 40 mg G-tube DAILY 05/03/23 08/29/24 delayed-release for susp in packet insulin glargine 100 unit/mL (3 10 unit subcut QPM 05/04/23 08/29/24 mL) subcutaneous pen (Lantus Solostar U-100 Insulin) melatonin 3 mg tablet 9 mg feeding tube HS 05/04/23 08/29/24 ondansetron HCl 4 mg tablet 4 mg feeding tube Q6H PRN 05/08/23 08/29/24 aspirin 81 mg chewable tablet 81 mg feeding tube DAILY #30 tabs 07/05/23 08/29/24 guaifenesin 200 mg/5 mL oral liquid 200 mg (5 mL) feeding tube Q4H PRN 07/05/23 08/29/24 #118 mL duloxetine 20 mg capsule,delayed 20 mg PO HS 01/24/24 08/29/24 release (Cymbalta) duloxetine 60 mg capsule,delayed 60 mg PO DAILY 01/24/24 08/29/24 release (Cymbalta) nystatin 100,000 unit/gram topical 1 applic topical BID 04/19/24 08/29/24 ointment doxycycline hyclate 100 mg capsule 100 mg feeding tube BID #7 caps 04/21/24 08/29/24 inhalational spacing device (Space #1 ea 04/21/24 08/29/24 Chamber) acetaminophen 500 mg/15 mL oral 1,000 mg feeding tube Q8H PRN 08/29/24 08/29/24 liquid albuterol sulfate 90 mcg/actuation 2 puff inhalation Q4H PRN 08/29/24 08/29/24 aerosol inhaler bisacodyl 10 mg rectal suppository 10 mg MO DAILY PRN 08/29/24 08/29/24 folic acid 1 mg tablet 1 mg feeding tube DAILY 08/29/24 08/29/24 quetiapine 100 mg tablet 300 mg feeding tube DAILY 08/29/24 08/29/24 Previous Rx's ?Medication ?Instructions ?Recorded insulin NPH isoph U-100 human 100 See Rx Instructions .Route 02/28/23 unit/mL (3 mL) subcutaneous pen .COMPLEX #0 mL (Humulin N NPH U-100 Insulin KwikPen) aspirin 81 mg chewable tablet 81 mg feeding tube DAILY #30 tabs 07/05/23 guaifenesin 200 mg/5 mL oral liquid 200 mg (5 mL) feeding tube Q4H PRN 07/05/23 #118 mL doxycycline hyclate 100 mg capsule 100 mg feeding tube BID #7 caps 04/21/24 inhalational spacing device (Space #1 ea 04/21/24 Chamber) Allergies Allergy/AdvReac Type Severity Reaction Status Date / Time metformin AdvReac Unknown Diarrhea Verified 08/29/24 07:10 meperidine AdvReac gi upset Verified 08/29/24 07:10 General Stated Complaint: RespSymp ASHANTI: 3 Exam Narrative Exam Narrative: Gen: awake and alert, in no apparent distress. Appears well nourished. HEENT: PERRL, EOMs full and without nystagmus. External ears and nose normal, mucous membranes moist. Neck: Supple, full range of motion, no observable masses Lungs: I note an increase in her work of breathing when she transfers from the stretcher to the bed, wheezes appreciated on expiration in the right greater than left lung howard. CV: Heart with regular rate and rhythm, no murmurs auscultated. Strong and symmetrical radial pulses. Abdomen: Soft, nondistended, non-tender to palpation. No rigidity, rebound tenderness, or guarding. PEG tube without surrounding skin changes MSK: No joint swelling, no redness. Full ROM without limitation, no external traumatic findings. No peripheral edema, no unilateral calf tenderness or swelling Skin: No rashes or lesions to visualized skin. Normal color, warm, and dry. Neuro: Cranial nerves II-XII intact and symmetrical bilaterally. 5/5 strength in all muscle groups x4 extremities. No sensory deficits. Psych: Appropriate for situation. Course Vital Signs Vital signs: Vital Signs Temperature 36.3 C L 08/29/24 07:07 Pulse 71 08/29/24 07:07 Respiratory Rate 18 08/29/24 07:07 Blood Pressure 168/60 H 08/29/24 07:07 Pulse Oximetry 92 08/29/24 07:07 Temperature 36.3 C L 08/29/24 07:16 Temperature Source Tympanic 08/29/24 07:16 Pulse 71 08/29/24 07:16 Respiratory Rate 18 08/29/24 07:16 Blood Pressure 168/60 H 08/29/24 07:16 Pulse Oximetry 92 08/29/24 07:16 Oxygen Delivery Method Nasal Cannula 08/29/24 07:16 Oxygen Flow Rate 3 08/29/24 07:16 Medical Decision Making In brief, this is a 64-year-old female patient brought in by EMS with hypoxia, productive cough, and nausea. My differential includes but is not limited to COPD exacerbation, URI, bronchitis, pneumonia, heart failure exacerbation. Considered ACS though the patient is reassuringly without chest pain at this time. The presence of wheezing in the lack of DVT signs reassures me against PE. The patient's nausea is in the context of coughing and I suspect posttussive emesis may be contributing. I also considered PEG tube malfunction, gastroenteritis, pancreatitis, though overall her abdominal examination is reassuring. We obtained an EKG which I reviewed, which shows a normal sinus rhythm without evidence of ischemia, interval abnormality, or ectopy. We will provide the patient with a duo nebulizer treatment and a dose of Solu-Medrol, and obtain laboratory studies to include CBC, CMP, magnesium, troponin, BNP, and a Fluvid. I will obtain a chest x-ray. ED Course: - Chest x-ray confirmed left lower lobe pneumonia. - I independently interpreted the laboratory studies, which show no significant leukocytosis, anemia, or thrombocytopenia. The chemistry panel is without evidence of electrolyte abnormality, kidney dysfunction, or liver injury. Initial troponin negative, lipase is low, Fluvid negative. - Administered ceftriaxone and azithromycin. - Improvement in wheezing and work of breathing after duo nebulizer treatment, able to be weaned down to 2 L/min by nasal cannula - Second dose of Zofran administered for ongoing nausea. Clinical Impression: - Left lower lobe pneumonia - Hypoxic respiratory failure - Chronic obstructive pulmonary disease (COPD) exacerbation Given the patient's ongoing need for oxygen above her baseline (was able to be weaned down to 2 L/min by nasal cannula after nebulizers) as well as her inc reased work of breathing with any exertion I recommended admission, and reach out to our hospitalist service who is graciously accepted her for admission to their team for ongoing workup and management. Transferred from our department to the hospitalist care without acute incident and remained hemodynamically stable throughout. Disposition: - Admission MDM Components Evaluation: - Number of Differential Diagnoses or Management Options: Pneumonia, bronchitis, COPD exacerbation. - Amount and Complexity of Data Reviewed: Chest x-ray, EKG, laboratory studies, nasal swab for viral testing. - Risk of Complication and Morbidity or Mortality: High risk due to pneumonia and need for supplemental oxygen. Gaby Houston MD Patient consented to the use of [facility]O for this patient encounter. Medical Records Medical records reviewed: Yes I reviewed the patient's medical records. Lab Data Lab results reviewed: Yes I reviewed the patient's lab results. Quality:SDOH Health Related Social Needs: No Data to Display Critical Care Time Critical Care Time Critical Care Time: Yes Total Critical Care Time: 35 Attestation: Upon my evaluation, this patient had a high probability of imminent or life- threatening deterioration due to hypoxic respiratory failure, which required my direct attention, intervention, and personal management. I have personally provided 35 minutes of critical care time exclusive of time spent on separately billable procedures. Time includes review of laboratory data, radiology results, discussion with consultants, and monitoring for potential decompensation. Interventions were performed as documented above. Gaby Houston MD [facility] All Active Problems (Updated 05/03/24 @ 00:03 by HELDER SRIVASTAVA) Acute exacerbation of chronic obstructive pulmonary disease (Acute) Left lower lobe pneumonia (Acute) PEG tube malfunction (Acute) Dilatation of esophagus (Acute) Acute and chronic respiratory failure with hypoxia (Acute) Acute blood loss anemia (Acute) History of total right hip replacement (Acute 03/01/24) As treatment for R femoral neck fracture Medical History COPD (chronic obstructive pulmonary disease) with acute bronchitis Insulin dependent type 2 diabetes mellitus HFrEF (heart failure with reduced ejection fraction) Pre-op evaluation Abnormal chest xray H/O: pneumonia Anemia Drug-induced parkinsonism Neuroleptic induced parkinsonism Tubular adenoma (~06/10/21) Hyperplastic colon polyp (~06/10/21) Farrell's 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 Erosive esophagitis Esophageal ulcer with bleeding Farrell's esophagus Chronic diarrhea Black tarry stools Pleural effusion Leukocytosis Ventral hernia Cholelithiasis Atrial flutter Diabetes Bipolar 1 disorder Depression COVID Acute respiratory failure with hypoxia Acute on chronic respiratory failure with hypoxia Lab test positive for detection of COVID-19 virus Gastrostomy tube obstruction Aspiration pneumonia Pneumonitis Acute respiratory failure with hypoxia and hypercarbia Myocardial injury COPD with acute exacerbation NSTEMI (non-ST elevated myocardial infarction) Per pt. states she did not have a heart attack Bronchiolitis Acute on chronic respiratory failure with hypoxia and hypercapnia Hypotension Vitamin D deficiency Esophageal stricture Chronic systolic (congestive) heart failure Aspiration pneumonia Stress-induced cardiomyopathy acute onset managed at [facility] [place] 08/30 pressors, EF 25%, has since recovered RH Acute cardiogenic pulmonary edema Acute metabolic encephalopathy Bilateral pneumonia Hypokalemia Closed fracture of neck of left femur s/p Percutaneous Screw Fixation 08/09/22 Constipation Diabetes mellitus type 2 in obese Chronic iron deficiency anemia ETOH abuse Poorly controlled diabetes mellitus Chronic pancreatitis due to acute alcohol intoxication Alcohol abuse Per pt. states she has never had an issues with any subtances History of pilonidal cyst Anxiety Surgical History PEG (percutaneous endoscopic gastrostomy) status Status post hip surgery History of total left hip arthroplasty (01/19/23) S/P laparoscopic procedure cyst removed from stomach per patient S/P surgical removal of pilonidal cyst History of esophagogastroduodenoscopy (EGD) (~06/10/21) History of colonoscopy with polypectomy (~06/10/21) History of hysterectomy History of tonsillectomy History of section Family History Father Hypertension Diabetes Heart disease Social History Smoking/Tobacco Use Status: Former Tobacco Use Quit Date: 02/07/21 Smoking risk assessment performed?: Yes Alcohol Intake: never Drug use: Never Substance use type: does not use Household members: spouse Housing: apartment Number of Children: 2 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
[2024-08-29] MEDS: Albuterol/Ipratropium 3 ML UPD VIAL UPD ×3 (08:05→16:20)
[2024-08-29] MEDS: methylPREDNISolone SUCC 125 MG VIAL IVP (08:05)
[2024-08-29] MEDS: Ondansetron 4 MG/2 ML VIAL IVP ×2 (08:05→09:18)
[2024-08-29 08:08] LABS: Abs Immature Grans 0.03 10^3/uL (0.0-0.06); Absolute Basophil Count 0.05 10^3/uL (0.0-0.2); Absolute Eosinophil Count 0.18 10^3/uL (0.0-0.7); Absolute Lymphocyte Count 1.11 10^3/uL (1.2-3.4); Absolute Neutrophil Count 7.41 10^3/uL (1.2-6.7); Basophils % 0.5 %; Eosinophils % 1.9 %; HCT 44.3 % (36.0-46.0); Immature Grans % 0.3 %; MCH 28.7 pg (27.0-33.0); MCHC 31.6 % (32.0-36.0); MCV 91 fL (80-95); MPV 11.7 fL (8.0-11.0); Monocytes % 5.4 %; Neutrophils % 79.9 %; Platelet Count 166 10^3/uL (130-400); RBC 4.88 10^6/uL (3.93-5.22); RDW 14.6 % (11.7-14.6); RDW-SD 48.5 fL; WBC 9.28 10^3/uL (4.4-10.8)
[2024-08-29 08:16] LABS: COVID-19 PCR Negative (Negative); Influenza A PCR Negative (Negative); Influenza B PCR Negative (Negative); RSV PCR Negative (Negative)
[2024-08-29 08:17] LABS: Source Nasopharynx
[2024-08-29 08:32] LABS: ALT 22 U/L (14-59); AST 21 U/L (15-37); Alkaline Phosphatase 120 U/L (46-116); Anion Gap 2.4 mmol/L (3-11); BUN 17 mg/dL (7-18); Bilirubin, Total 0.2 mg/dL (0.2-1.0); CO2 34.6 mmol/L (21.0-32.0); CREATININE 0.9 mg/dL (0.55-1.02); Calcium 9.9 mg/dL (8.5-10.1); Chloride 104 mmol/L (98-107); Estimated GFR 71.39 (mL/min/1.73m2); Glucose 220 mg/dL (74-106); Lipase 24 U/L (<78); Magnesium 1.8 mg/dL (1.8-2.4); NT-proBNP 352 pg/mL (<300); Potassium 4.3 mmol/L (3.5-5.1); Sodium 141 mmol/L (136-145); Total Protein 6.9 g/dL (6.4-8.2); Troponin I 5 ng/L (<or=51)
[2024-08-29] MEDS: cefTRIAXone 1 GM/50 ML BAG IVPB (09:19)
--- NOTE | 2024-08-29 09:29 | W.PM.HP.N ---
Date of service: 08/29/24 Time of Service: 09:29 Assessment and Plan Assessment and plan (1) Acute and chronic respiratory failure with hypoxia: Status: Acute Assessment and plan: Chronic oxygen requirement at night, acutely more hypoxic at admission needing 5 liters down to 2 liters via NC. Has improved during the day today. Continue to monitor. (2) Left lower lobe pneumonia: Status: Acute Assessment and plan: CAP treated with ceftriaxone and azithromycin, continue this. (3) Acute exacerbation of chronic obstructive pulmonary disease: Status: Acute Assessment and plan: Improved with methylprednisolone and nebs in ED. Continue with predisone via g-tube, nebs/inhalers. (4) HFrEF (heart failure with reduced ejection fraction): Assessment and plan: HFimpEF. LVEF normalized from 2022 to 2023. Her previous heart failure was deemed stress induced, but she also does have a history of ischemic heart disease, so will continue her cardiac medications including ARNI, SGLTi. metoprolol, ASA, statin. Indication for ARNI is not totally clear but can defer to PCP/cardiology. She does not appear to be in heart failure currently. (5) Bipolar 1 disorder: Assessment and plan: Stable, continue outpatient therapy (6) Insulin dependent type 2 diabetes mellitus: Assessment and plan: A1c was 6.3% on 08/09, which is likely overly aggressive control. Will given low dose basal insulin and SGLTi and monitor. (7) Farrell's esophagus: Assessment and plan: With h/o UGI and associated anemia that has resolved. Continue PPI (8) PEG (percutaneous endoscopic gastrostomy) status: Assessment and plan: tube feeds (9) DVT prophylaxis: Status: Acute Assessment and plan: enoxaparin History of Present Illness History of Present Illness Chief Complaint: cough, SOB Narrative: 64 yo F with h/o COPD on home O2 at night, HFimpEF, stable bipolar 1, and PEG feeds due to esophageal scaring who presented to the ED with 2 days of progressive cough and shortness of breath. Syptoms started yesterday with cough, sore throat. Cough is productive of thick green/yellow sputum which is new. No fevers. She is fatigued. She has been drinking still (able to drink but not eat due to her esophagus, takes tube feeds). She has felt progressively SOB and so was sent to the ED. States she does not have PRN nebs or inhalers at rehab, but she did feel better after getting nebs in ED. She was initially on 5 liters in the ED, improved to 2 liters after nebs and solumedrol. Review of Systems All systems reviewed & are unremarkable except as noted in HPI and below PFSH All Active Problems DVT prophylaxis (Acute) Acute exacerbation of chronic obstructive pulmonary disease (Acute) Left lower lobe pneumonia (Acute) PEG tube malfunction (Acute) Dilatation of esophagus (Acute) Acute and chronic respiratory failure with hypoxia (Acute) History of total right hip replacement (Acute 03/01/24) As treatment for R femoral neck fracture Medical History COPD (chronic obstructive pulmonary disease) with acute bronchitis Vitamin D deficiency Hypotension HFrEF (heart failure with reduced ejection fraction) Bronchiolitis COPD with acute exacerbation Myocardial injury Acute respiratory failure with hypoxia and hypercarbia Acute on chronic respiratory failure with hypoxia and hypercapnia Pneumonitis Aspiration pneumonia Gastrostomy tube obstruction Lab test positive for detection of COVID-19 virus Acute on chronic respiratory failure with hypoxia Esophageal stricture Chronic systolic (congestive) heart failure Insulin dependent type 2 diabetes mellitus Aspiration pneumonia COVID Pre-op evaluation Abnormal chest xray H/O: pneumonia Stress-induced cardiomyopathy acute onset managed at [facility] pressors, EF 25%, has since recovered RH NSTEMI (non-ST elevated myocardial infarction) Per pt. states she did not have a heart attack Acute cardiogenic pulmonary edema Acute metabolic encephalopathy Bilateral pneumonia Acute respiratory failure with hypoxia Hypokalemia Closed fracture of neck of left femur s/p Percutaneous Screw Fixation 08/09/22 Constipation Drug-induced parkinsonism Neuroleptic induced parkinsonism Diabetes mellitus type 2 in obese Tubular adenoma (~06/10/21) Hyperplastic colon polyp (~06/10/21) Erosive esophagitis Esophageal ulcer with bleeding Chronic iron deficiency anemia Farrell's esophagus Chronic diarrhea Black tarry stools Pleural effusion Leukocytosis ETOH abuse Ventral hernia Chronic pancreatitis due to acute alcohol intoxication Alcohol abuse Per pt. states she has never had an issues with any subtances Cholelithiasis Atrial flutter History of pilonidal cyst Diabetes Bipolar 1 disorder Anxiety Depression Surgical History PEG (percutaneous endoscopic gastrostomy) status History of total left hip arthroplasty (01/19/23) Status post hip surgery S/P laparoscopic procedure cyst removed from stomach per patient S/P surgical removal of pilonidal cyst History of esophagogastroduodenoscopy (EGD) (~06/10/21) History of colonoscopy with polypectomy (~06/10/21) History of hysterectomy History of tonsillectomy History of section Family History Father Hypertension Diabetes Heart disease Social History (Updated 08/29/24 @ 17:43 by Moustapha Guerra) Smoking/Tobacco Use Status: Former Tobacco Use Quit Date: 02/07/21 Smoking risk assessment performed?: Yes Alcohol Intake: never Drug use: Never Substance use type: does not use Household members: spouse Housing: long term Number of Children: 2 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 Additional Social history: At [facility] with Meds Allergies and Home Medications Allergies Allergy/AdvReac Type Severity Reaction Status Date / Time metformin AdvReac Unknown Diarrhea Verified 08/29/24 07:10 meperidine AdvReac gi upset Verified 08/29/24 07:10 Home Medications ?Medication ?Instructions ?Recorded ?Confirmed ?Type sucralfate 1 gram tablet 1 g PO QID 08/08/22 08/29/24 History atorvastatin 80 mg tablet 80 mg feeding tube QPM 11/18/22 08/29/24 History empagliflozin 10 mg tablet 10 mg feeding tube DAILY 11/18/22 08/29/24 History (Jardiance) metoprolol succinate 50 mg 25 mg PO BID 11/18/22 08/29/24 History tablet,extended release 24 hr sacubitril 24 mg-valsartan 26 mg 1 tab feeding tube DAILY 11/18/22 08/29/24 History tablet (Entresto) valproic acid (as sodium salt) 250 300 mg feeding tube TID 11/18/22 08/29/24 History mg/5 mL oral solution bupropion HCl 100 mg tablet 300 mg PO DAILY 12/16/22 08/29/24 History protein See Rx Instructions PO .COMPLEX 12/16/22 08/29/24 History ferrous sulfate 300 mg (60 mg 300 mg feeding tube .QOD 01/31/23 08/29/24 History iron)/5 mL oral liquid insulin NPH isoph U-100 human 100 See Rx Instructions .Route 02/28/23 08/29/24 Rx unit/mL (3 mL) subcutaneous pen .COMPLEX #0 mL (Humulin N NPH U-100 Insulin KwikPen) ibuprofen 100 mg/5 mL oral 600 mg PO Q8H PRN 04/04/23 08/29/24 History suspension nystatin 100,000 unit/gram topical 1 applic topical TID PRN 05/03/23 08/29/24 History cream nystatin 100,000 unit/gram topical 1 applic topical TID PRN 05/03/23 08/29/24 History powder pantoprazole 40 mg granules 40 mg G-tube DAILY 05/03/23 08/29/24 History delayed-release for susp in packet insulin glargine 100 unit/mL (3 10 unit subcut QPM 05/04/23 08/29/24 History mL) subcutaneous pen (Lantus Solostar U-100 Insulin) melatonin 3 mg tablet 9 mg feeding tube HS 05/04/23 08/29/24 History ondansetron HCl 4 mg tablet 4 mg feeding tube Q6H PRN 05/08/23 08/29/24 History aspirin 81 mg chewable tablet 81 mg feeding tube DAILY #30 tabs 07/05/23 08/29/24 Rx guaifenesin 200 mg/5 mL oral liquid 200 mg (5 mL) feeding tube Q4H PRN 07/05/23 08/29/24 Rx #118 mL duloxetine 20 mg capsule,delayed 20 mg PO HS 01/24/24 08/29/24 History release (Cymbalta) duloxetine 60 mg capsule,delayed 60 mg PO DAILY 01/24/24 08/29/24 History release (Cymbalta) nystatin 100,000 unit/gram topical 1 applic topical BID 04/19/24 08/29/24 History ointment doxycycline hyclate 100 mg capsule 100 mg feeding tube BID #7 caps 04/21/24 08/29/24 Rx inhalational spacing device (Space #1 ea 04/21/24 08/29/24 Rx Chamber) acetaminophen 500 mg/15 mL oral 1,000 mg feeding tube Q8H PRN 08/29/24 08/29/24 History liquid albuterol sulfate 90 mcg/actuation 2 puff inhalation Q4H PRN 08/29/24 08/29/24 History aerosol inhaler bisacodyl 10 mg rectal suppository 10 mg [place] DAILY PRN 08/29/24 08/29/24 History folic acid 1 mg tablet 1 mg feeding tube DAILY 08/29/24 08/29/24 History quetiapine 100 mg tablet 300 mg feeding tube DAILY 08/29/24 08/29/24 History Exam Narrative Exam Narrative: GEN: Alert and oriented x 4, sitting up in bed, pleasant and cooperative, gives linear history. No acute distress at rest. HEENT: Head atraumatic. Conjunctiva clear, no icterus. PEERL, EOMI. no rhinorrhea. MMM, OP benign. Neck is supple with no masses or lymphadenopathy, trachea midline LUNGS: Course breath sounds CTAB with mild increase in respiratory effort with movement CV: RRR with no murmurs, gallops, or rubs. ABD: active bowel sounds, soft, nontender and nondistended. No masses. EXT: no cyanosis, clubbing, or edema MSK: No joint redness or swelling NEURO: CN 2-12 grossly intact. Normal movement of 4 extremities. Normal speech and coordination. Had tremor with using hands SKIN: No rashes or open wounds x red patch under breasts. PSYCH: normal mood and affect, normal thought process Results Imaging Chest x-ray: report reviewed and image reviewed (LLL infiltrate most visible on lateral (spine sign)) EKG: report reviewed and image reviewed (NSR, nl axis, nl intervals including QTc of 424. Low voltage. No ischemic ST-T abnormalities) Labs 08/29/24 07:57 08/29/24 07:57 Labs: Laboratory Results - last 24 hr 08/29/24 08/29/24 08/29/24 07:34 07:57 07:57 WBC 9.28 RBC 4.88 Hgb 14.0 Hct 44.3 MCV 91 MCH 28.7 MCHC 31.6 L RDW 14.6 Plt Count 166 MPV 11.7 H Immature Gran % 0.3 Neutrophils % 79.9 Lymphocytes % 12.0 Monocytes % 5.4 Eosinophils % 1.9 Basophils % 0.5 Nucleated RBC % 0.0 Absolute Neutrophils 7.41 H Absolute Lymphocytes 1.11 L Absolute Monocytes 0.50 Absolute Eosinophils 0.18 Absolute Basophils 0.05 Sodium 141 Potassium 4.3 Chloride 104 Carbon Dioxide 34.6 H Anion Gap 2.4 L BUN 17 Creatinine 0.9 Est GFR (CKD-EPI 2020) 71.39 Glucose 220 H Calcium 9.9 Magnesium 1.8 Total Bilirubin 0.2 AST 21 ALT 22 Alkaline Phosphatase 120 H Troponin I 5 NT-Pro-B Natriuret Pep 352 H Total Protein 6.9 Albumin 3.0 L Lipase 24 Cancelled COVID-19 Source Nasopharynx SARS-CoV-2 (PCR) Negative Influenza Type A (PCR) Negative Influenza Type B (PCR) Negative RSV (PCR) Negative Last Vital Signs Temp 36.3 C L 08/29/24 07:16 Pulse 75 08/29/24 08:05 Resp 18 08/29/24 08:05 BP 168/60 H 08/29/24 07:16 Pulse Ox 97 08/29/24 08:05 Time Spent Time spent with Patient: 55-74 minutes Time was spent: preparing to see the patient(eg.review tests), obtaining and/or reviewing separately otained hiistory, ordering medications,tests, procedures, referring, communicating with other health healthcare market consultant, indepentently interpreting results, counseling the patient and care coordination
[2024-08-29 09:33] LABS: Troponin I < 4 ng/L (<or=51)
[2024-08-29] MEDS: AZITHROMYCIN 500 MG in Normal Saline 250 ML 250 MG IVPB (09:56)
[2024-08-29] MEDS: Enoxaparin 40 MG/0.4 ML SYR SC (09:56)
[2024-08-29] MEDS: predniSONE 20 MG TAB 40 MG NG (09:57)
--- NOTE | 2024-08-29 10:32 | W.PC.ACHO ---
Registration Status: Primary Language: Preferred Language: ED Information & Data Chief Complaint RespSymp 08/29/24 07:29 Triage Note started over night SOB, 08/29/24 07:07 cough with green sputum, nausea, H&R reported spo2 in 70's x1 albut neb prior to arrival Medical / Surgical History (Last Updated 08/29/24 @ 09:35 by Moustapha Guerra) COPD (chronic obstructive pulmonary disease) with acute bronchitis Insulin dependent type 2 diabetes mellitus HFrEF (heart failure with reduced ejection fraction) Pre-op evaluation Abnormal chest xray H/O: pneumonia Drug-induced parkinsonism Neuroleptic induced parkinsonism Tubular adenoma (~06/10/21) Hyperplastic colon polyp (~06/10/21) Erosive esophagitis Esophageal ulcer with bleeding Farrell's esophagus Chronic diarrhea Black tarry stools Pleural effusion Leukocytosis Ventral hernia Cholelithiasis Atrial flutter Diabetes Bipolar 1 disorder Depression COVID Acute respiratory failure with hypoxia Acute on chronic respiratory failure with hypoxia Lab test positive for detection of COVID-19 virus Gastrostomy tube obstruction Aspiration pneumonia Pneumonitis Acute respiratory failure with hypoxia and hypercarbia Myocardial injury COPD with acute exacerbation NSTEMI (non-ST elevated myocardial infarction) Bronchiolitis Acute on chronic respiratory failure with hypoxia and hypercapnia Hypotension Vitamin D deficiency Esophageal stricture Chronic systolic (congestive) heart failure Aspiration pneumonia Stress-induced cardiomyopathy Acute cardiogenic pulmonary edema Acute metabolic encephalopathy Bilateral pneumonia Hypokalemia Closed fracture of neck of left femur Constipation Diabetes mellitus type 2 in obese Chronic iron deficiency anemia ETOH abuse Chronic pancreatitis due to acute alcohol intoxication Alcohol abuse History of pilonidal cyst Anxiety (Last Reviewed 05/01/24 @ 04:37 by Geronimo Denney) PEG (percutaneous endoscopic gastrostomy) status Status post hip surgery History of total left hip arthroplasty (01/19/23) S/P laparoscopic procedure S/P surgical removal of pilonidal cyst History of esophagogastroduodenoscopy (EGD) (~06/10/21) History of colonoscopy with polypectomy (~06/10/21) History of hysterectomy History of tonsillectomy History of section Most Recent Vital Signs Temperature 36.3 C L 08/29/24 07:16 Temperature Source Tympanic 08/29/24 07:16 Pulse 77 08/29/24 09:57 Respiratory Rate 16 08/29/24 09:57 Blood Pressure 168/60 H 08/29/24 07:16 Pulse Oximetry 92 08/29/24 09:57 Oxygen Delivery Method Room Air 08/29/24 09:57 Oxygen Flow Rate 0 08/29/24 09:57 Allergies metformin Adverse Reaction (Unknown, Verified 08/29/24 07:10) Diarrhea meperidine Adverse Reaction (Verified 08/29/24 07:10) gi upset Active Medications Generic Name Dose Route Start Last Admin Trade Name Freq PRN Reason Stop Dose Admin Albuterol/Ipratropium 3 ml 08/29/24 10:00 08/29/24 09:57 Albuterol/Ipratropium 3 Ml Upd Vial UPD 3 ml Q6H LAZARUS Administration Enoxaparin Sodium 40 mg 08/29/24 10:00 08/29/24 09:56 Enoxaparin 40 Mg/0.4 Ml Syr SC 40 mg Q24H LAZARUS Administration IV IV Catheter Type [Right Saline Lock Forearm] IV Catheter Gauge [Right 20 Forearm] Diet Orders Category Date Time Status Tube Feeding [DIET] Nutrition 08/29/24 Lunch Active Diagnostics 08/29/24 08/29/24 08/29/24 Range/Units 10:19 09:10 07:57 WBC (4.4-10.8) 10^3/uL RBC (3.93-5.22) 10^6/uL Hgb (11.2-15.7) g/dL Hct (36.0-46.0) % MCV (80-95) fL MCH (27.0-33.0) pg MCHC (32.0-36.0) % RDW (11.7-14.6) % Plt Count (130-400) 10^3/uL MPV (8.0-11.0) fL Immature Gran % % Neutrophils % % Lymphocytes % % Monocytes % % Eosinophils % % Basophils % % Nucleated RBC % (0.0-0.3) % Absolute Neutrophils (1.2-6.7) 10^3/uL Absolute Lymphocytes (1.2-3.4) 10^3/uL Absolute Monocytes (0.1-0.8) 10^3/uL Absolute Eosinophils (0.0-0.7) 10^3/uL Absolute Basophils (0.0-0.2) 10^3/uL Sodium (136-145) mmol/L Potassium (3.5-5.1) mmol/L Chloride (98-107) mmol/L Carbon Dioxide (21.0-32.0) mmol/L Anion Gap (3-11) mmol/L BUN (7-18) mg/dL Creatinine (0.55-1.02) mg/dL Est GFR (CKD-EPI 2020) (mL/min/1.73m2) Glucose (74-106) mg/dL Calcium (8.5-10.1) mg/dL Magnesium (1.8-2.4) mg/dL Total Bilirubin (0.2-1.0) mg/dL AST (15-37) U/L ALT (14-59) U/L Alkaline Phosphatase (46-116) U/L Troponin I Cancelled < 4 (<or=51) ng/L NT-Pro-B Natriuret Pep (<300) pg/mL Total Protein (6.4-8.2) g/dL Albumin (3.4-5.0) g/dL Lipase Cancelled (<78) U/L COVID-19 Source SARS-CoV-2 (PCR) (Negative) Influenza Type A (PCR) (Negative) Influenza Type B (PCR) (Negative) RSV (PCR) (Negative) 08/29/24 08/29/24 Range/Units 07:57 07:34 WBC 9.28 (4.4-10.8) 10^3/uL RBC 4.88 (3.93-5.22) 10^6/uL Hgb 14.0 (11.2-15.7) g/dL Hct 44.3 (36.0-46.0) % MCV 91 (80-95) fL MCH 28.7 (27.0-33.0) pg MCHC 31.6 L (32.0-36.0) % RDW 14.6 (11.7-14.6) % Plt Count 166 (130-400) 10^3/uL MPV 11.7 H (8.0-11.0) fL Immature Gran % 0.3 % Neutrophils % 79.9 % Lymphocytes % 12.0 % Monocytes % 5.4 % Eosinophils % 1.9 % Basophils % 0.5 % Nucleated RBC % 0.0 (0.0-0.3) % Absolute Neutrophils 7.41 H (1.2-6.7) 10^3/uL Absolute Lymphocytes 1.11 L (1.2-3.4) 10^3/uL Absolute Monocytes 0.50 (0.1-0.8) 10^3/uL Absolute Eosinophils 0.18 (0.0-0.7) 10^3/uL Absolute Basophils 0.05 (0.0-0.2) 10^3/uL Sodium 141 (136-145) mmol/L Potassium 4.3 (3.5-5.1) mmol/L Chloride 104 (98-107) mmol/L Carbon Dioxide 34.6 H (21.0-32.0) mmol/L Anion Gap 2.4 L (3-11) mmol/L BUN 17 (7-18) mg/dL Creatinine 0.9 (0.55-1.02) mg/dL Est GFR (CKD-EPI 2020) 71.39 (mL/min/1.73m2) Glucose 220 H (74-106) mg/dL Calcium 9.9 (8.5-10.1) mg/dL Magnesium 1.8 (1.8-2.4) mg/dL Total Bilirubin 0.2 (0.2-1.0) mg/dL AST 21 (15-37) U/L ALT 22 (14-59) U/L Alkaline Phosphatase 120 H (46-116) U/L Troponin I 5 (<or=51) ng/L NT-Pro-B Natriuret Pep 352 H (<300) pg/mL Total Protein 6.9 (6.4-8.2) g/dL Albumin 3.0 L (3.4-5.0) g/dL Lipase 24 (<78) U/L COVID-19 Source Nasopharynx SARS-CoV-2 (PCR) Negative (Negative) Influenza Type A (PCR) Negative (Negative) Influenza Type B (PCR) Negative (Negative) RSV (PCR) Negative (Negative) Intake and Output - 24 Hour Total 08/29/24 07:04 thru 08/29/24 09:19 Intake Total 10 Balance 10 Weight 73.7 kg Intake: IV 10 Falls Risk Assessment History of Falls No History 08/29/24 07:16 Fall Total Score 0 08/29/24 07:16 Level of Risk Standard/Low Risk 08/29/24 07:16 Problems (Last Updated 08/29/24 @ 09:35 by Moustapha Guerra) DVT prophylaxis (Acute) Acute exacerbation of chronic obstructive pulmonary disease (Acute) Left lower lobe pneumonia (Acute) Acute and chronic respiratory failure with hypoxia (Acute) v v v v v v v v v Sending and/or Receiving Nurses: Please use comment section below to note any information pertinent to the patient hand-off not included above. Information / Comments: Pt paged up at [phone], report called at [phone]. [facility]. US guided 20 G L forearm. G-tube in place, pt is alert and oriented. Report received from: Avani Carbajal ED RN
[2024-08-29] MEDS: Insulin Aspart 300 UNITS/3 ML PEN SC ×2 (13:36→17:31)
[2024-08-29] MEDS: Atorvastatin 40 MG TAB 80 MG PO (20:56)
[2024-08-29] MEDS: Normal Saline Flush 10 ML SYR IVP (20:56)
[2024-08-29] MEDS: Sacubitril/Valsartan 24 mg/26 mg TAB 1 EACH JT (20:57)
[2024-08-29] MEDS: Melatonin 3 MG TAB 9 MG PO (20:57)
[2024-08-29] MEDS: Metoprolol CR 50 MG TABCR 25 MG NG (20:57)
[2024-08-29] MEDS: DULoxetine 20 MG CAP PO (20:57)
[2024-08-29] MEDS: Insulin Glargine 300 UNITS/3 ML PEN 10 UNITS SC (20:57)
[2024-08-29] MEDS: Ondansetron O.D.T. 4 MG TABEF NG (22:33)
[2024-08-30 03:15] VITALS: BP 121/50; PULSE 68; RESP 20; TEMP 37.1; O2SAT 93
[2024-08-30] MEDS: Ondansetron O.D.T. 4 MG TABEF NG (04:44)
[2024-08-30 08:04] VITALS: BP 134/57; PULSE 60; RESP 18; TEMP 37.3; O2SAT 95
[2024-08-30] MEDS: cefTRIAXone 1 GM/50 ML BAG IVPB (08:31)
[2024-08-30] MEDS: Enoxaparin 40 MG/0.4 ML SYR SC (08:32)
[2024-08-30] MEDS: buPROPion 100 MG TAB 300 MG PO (08:33)
[2024-08-30] MEDS: Empaglifozin 10 MG TAB NG (08:33)
[2024-08-30] MEDS: Nystatin OINT 15 GM TUBE TP (08:33)
[2024-08-30] MEDS: Metoprolol CR 50 MG TABCR 25 MG NG (08:34)
[2024-08-30] MEDS: DULoxetine 30 MG CAP PO (08:34)
[2024-08-30] MEDS: QUEtiapine 100 MG TAB 300 MG JT (08:34)
[2024-08-30] MEDS: Sacubitril/Valsartan 24 mg/26 mg TAB 1 EACH JT (08:34)
[2024-08-30] MEDS: Folic Acid 1 MG TAB NG (08:34)
[2024-08-30] MEDS: Aspirin 81 MG CHEW NG (08:34)
[2024-08-30] MEDS: predniSONE 20 MG TAB 40 MG NG (08:34)
[2024-08-30] MEDS: Normal Saline Flush 10 ML SYR IVP ×2 (08:35→09:36)
[2024-08-30] MEDS: AZITHROMYCIN 500 MG in Normal Saline 250 ML 250 MG IVPB (09:35)
--- NOTE | 2024-08-30 09:52 | PDOC.CMIN ---
Date of service: 08/30/24 Time of Service: 09:52 Care Management Initial Assmt Initial Assessment Reason for Hospitalization: pneumonia/COPD exacerbation Functional Status/Living Situation Town of Residence: [facility] Resides with: Spouse (Rogelio) Significant Other/Family: Local (Rocael Shannon lives nearby. Son Geronimo is at [facility]) Caregiver/Guardian: Jennifer resides at [facility] Natural Supports: family, [facility] staff Medications Medication Management: No Issues/Barriers identified Advance Directives Advance Directives: Do you have an Advance Directive: N 05/01/24 08:18 AD On File at [facility]: N 05/01/24 08:18 Date Asked 08/29/24 08/29/24 07:17 AD Date Reviewed COLST On File at [facility] COLST Date Scanned Code Status Resuscitation Status Full Code Insurance Coverage/Financial Issues Insurance: Medicaid of [place] - [id number] FINANCIAL ASST 100 Care Team Visit Care Team Role Provider Type Ana Gillespie Primary Care Provider NURSE PRACTITIONER Gaby Houston MD Emergency Provider [facility] STAFF PHYSICIAN Moustapha Guerra Admit Provider [facility] STAFF PHYSICIAN Attending Provider Social Determinants of Health Screening Social Determinants of health last assessed in clinic: 08/29/24 Will the Patient Participate in the Screening?: Yes Do you worry about having a steady place to live?: no Problems where you live: no known problems In the past 12 months, have you had to go without electric, gas, oil or water in your home?: no Has lack of transportation kept you from medical appointments or from doing things needed for daily living?: no Has anyone in your life made you feel unsafe or unsupported?: no How hard is it for you to pay for the very basics like food, housing, medical care, and heating? Would you say it is:: Not hard at all Do you want help finding or keeping work or a job?: I do not need or want help If for any reason you need help with day-to-day activities such as bathing, preparing meals, shopping, managing finances, etc., do you get the help you need?: I get all the help I need How often do you feel lonely or isolated from those around you?: Never Do you speak a language other than Armenian at home?: No Does the patient want assistance with any of the above?: No Comments: Pt is a resident at [facility]. [facility] All Active Problems DVT prophylaxis (Acute) Acute exacerbation of chronic obstructive pulmonary disease (Acute) Left lower lobe pneumonia (Acute) PEG tube malfunction (Acute) Dilatation of esophagus (Acute) Acute and chronic respiratory failure with hypoxia (Acute) History of total right hip replacement (Acute 03/01/24) As treatment for R femoral neck fracture Medical History COPD (chronic obstructive pulmonary disease) with acute bronchitis Vitamin D deficiency Hypotension HFrEF (heart failure with reduced ejection fraction) Bronchiolitis COPD with acute exacerbation Myocardial injury Acute respiratory failure with hypoxia and hypercarbia Acute on chronic respiratory failure with hypoxia and hypercapnia Pneumonitis Aspiration pneumonia Gastrostomy tube obstruction Lab test positive for detection of COVID-19 virus Acute on chronic respiratory failure with hypoxia Esophageal stricture Chronic systolic (congestive) heart failure Insulin dependent type 2 diabetes mellitus Aspiration pneumonia COVID Pre-op evaluation Abnormal chest xray H/O: pneumonia Stress-induced cardiomyopathy acute onset [place] [facility] [place] pressors, EF 25%, has since recovered RH NSTEMI (non-ST elevated myocardial infarction) Per pt. states she did not have a heart attack Acute cardiogenic pulmonary edema Acute metabolic encephalopathy Bilateral pneumonia Acute respiratory failure with hypoxia Hypokalemia Closed fracture of neck of left femur s/p Percutaneous Screw Fixation 08/09/22 Constipation Drug-induced parkinsonism Neuroleptic induced parkinsonism Diabetes mellitus type 2 in obese Tubular adenoma (~06/10/21) Hyperplastic colon polyp (~06/10/21) Erosive esophagitis Esophageal ulcer with bleeding Chronic iron deficiency anemia Farrell's esophagus Chronic diarrhea Black tarry stools Pleural effusion Leukocytosis ETOH abuse Ventral hernia Chronic pancreatitis due to acute alcohol intoxication Alcohol abuse Per pt. states she has never had an issues with any subtances Cholelithiasis Atrial flutter History of pilonidal cyst Diabetes Bipolar 1 disorder Anxiety Depression Surgical History PEG (percutaneous endoscopic gastrostomy) status History of total left hip arthroplasty (01/19/23) Status post hip surgery S/P laparoscopic procedure cyst removed from stomach per patient S/P surgical removal of pilonidal cyst History of esophagogastroduodenoscopy (EGD) (~06/10/21) History of colonoscopy with polypectomy (~06/10/21) History of hysterectomy History of tonsillectomy History of section Family History Father Hypertension Diabetes Heart disease Social History (Updated 08/29/24 @ 17:43 by Moustapha Guerra) Smoking/Tobacco Use Status: Former Tobacco Use Quit Date: 02/07/21 Smoking risk assessment performed?: Yes Alcohol Intake: never Drug use: Never Substance use type: does not use Household members: spouse Housing: alf Number of Children: 2 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
[2024-08-30 11:19] VITALS: BP 104/52; PULSE 68; RESP 16; TEMP 37.1; O2SAT 91
[2024-08-30] MEDS: Insulin Aspart 300 UNITS/3 ML PEN SC (12:07)
--- NOTE | 2024-08-30 12:17 | IN_ITS ---
PT Notes Visit Reasons: Pneumonia/COPD exacerbation Physical Therapy Inpatient Initial Evaluation Date: 08/30/2024 Referring Doctor: Dr Guerra PT Orders: PT CONSULT: Safety Consult for discharge Precautions: PEG Patient Profile/Admitting Diagnosis:Pt is a 64 yo female presented to ED with several days of cough and sore throat. Pt dx of hypoxia PNA ( left ). Pt treated initially with supplemental oxygen, nebs and antibiotics. PMHX: DVT prophylaxis (Acute) Acute exacerbation of chronic obstructive pulmonary disease (Acute) Left lower lobe pneumonia (Acute) PEG tube malfunction (Acute) Dilatation of esophagus (Acute) Acute and chronic respiratory failure with hypoxia (Acute) History of total right hip replacement (Acute 03/01/24) As treatment for R femoral neck fracture Medical History COPD (chronic obstructive pulmonary disease) with acute bronchitis Vitamin D deficiency Hypotension HFrEF (heart failure with reduced ejection fraction) Bronchiolitis COPD with acute exacerbation Myocardial injury Acute respiratory failure with hypoxia and hypercarbia Acute on chronic respiratory failure with hypoxia and hypercapnia Pneumonitis Aspiration pneumonia Gastrostomy tube obstruction Lab test positive for detection of COVID-19 virus Acute on chronic respiratory failure with hypoxia Esophageal stricture Chronic systolic (congestive) heart failure Insulin dependent type 2 diabetes mellitus Aspiration pneumonia COVID Pre-op evaluation Abnormal chest xray H/O: pneumonia Stress-induced cardiomyopathy acute onset managed at [facility] 08/30 pressors, EF 25%, has since recovered RHNSTEMI (non-ST elevated myocardial infarction) Per pt. states she did not have a heart attackAcute cardiogenic pulmonary edema Acute metabolic encephalopathy Bilateral pneumonia Acute respiratory failure with hypoxia Hypokalemia Closed fracture of neck of left femur s/p Percutaneous Screw Fixation 08/09/22Constipation Drug-induced parkinsonism Neuroleptic induced parkinsonism Diabetes mellitus type 2 in obese Tubular adenoma (~06/10/21) Hyperplastic colon polyp (~06/10/21) Erosive esophagitis Esophageal ulcer with bleeding Chronic iron deficiency anemia Farrell's esophagus Chronic diarrhea Black tarry stools Pleural effusion Leukocytosis ETOH abuse Ventral hernia Chronic pancreatitis due to acute alcohol intoxication Alcohol abuse Per pt. states she has never had an issues with any subtancesCholelithiasis Atrial flutter History of pilonidal cyst Diabetes Bipolar 1 disorder Anxiety Depression Surgical History PEG (percutaneous endoscopic gastrostomy) status History of total left hip arthroplasty (01/19/23) Status post hip surgery S/P laparoscopic procedure cyst removed from stomach per patientS/P surgical removal of pilonidal cyst History of esophagogastroduodenoscopy (EGD) (~06/10/21) History of colonoscopy with polypectomy (~06/10/21) History of hysterectomy History of tonsillectomy History of section Social History/Home Situation:Pt resides at [facility]. She reports she is ambulatory in her room and uses a FWW for long distances. She receives assistance for ADL . She reports she has her meals in her room. Equipment Owned/DME: FWW Subjective: Pt reports she has to go to the bathroom but otherwise has no problems Objective: [] General Observation: Pt supine in bed sleeping easily woke to her name. agreeable to participate. Mental Status: Alert and oriented to person and place, able to follow instructions but impulsive. Pain: denied ROM: [] BUE: WFL BLE: WFL Strength: [] BUE: >4/5 BLE : grossly hips 3+/5, knees 4/5 andkle 4/5 Sensation: intact Bed Mobility/Transfers: [] Supine to sit independent Sit to stand independent Stand to sit independent Bed to chair supervision Gait:supervision without device 50 feet level surfaces including turns pt demonstrates intermittent stagger steps and increased lateral weight shift. No LOB noted; 150 feet with FWW supervision with reciprocal pattern no excessive lateral weight shift and no stagger steps noted. Balance: [] Static Sitting:Normal Dynamic Sitting:Good + Static Standing: Normal Dynamic Standing: Good Special Tests: [] Mobility Limitations Standardized Measure [] [facility] AM-PAC 6 clicks Basic Mobility Inpatient Short Form: [] Raw Score: 23 CMS Score:11.20% Informed Consent/Education: Patient instructed in purpose of PT consult. Assessment: Patient is a 64 yo female who presents with clinical signs and symptoms consistent with current/admitting diagnoses that have resulted to mobility limitations, gait instability, generalized weakness, and impairment of motor control as demonstrated by the following impairment level findings: 1. Slightly diminished strength to BLE major muscle groups 2. Impaired functional activity tolerance 3 impaired stand balance Impairments are contributing to the following functional limitations: 1. Inability to safely ambulate without assistive device 2. Increase completion time for mobility ADL performance 3. Increased fall risk Patient is assessed as a low complexity based on the following: History: 64-year-old female with impairment level findings, functional limitations, and past medical history as indicated above Examination: Demonstrable impairment in strength, balance, and mobility level with underlying impairments and functional limitations as documented above Presentation: stable Decision Making: low Goals: N/A. returning to [facility] Plan of Care/Treatment Plan: N/A. DISCHARGE RECOMMENDATIONS: Return to [facility] TREATMENT CODE/TIME: [id number]/ 20 mins Thank you for the opportunity to participate in the care of this patient. [facility]
--- NOTE | 2024-08-30 12:29 | W.PM.DS.N ---
Date of service: 08/30/24 Time of Service: 12:30 DS: Diagnosis Discharge Diagnosis (1) Acute and chronic respiratory failure with hypoxia: Status: Acute (2) Left lower lobe pneumonia: Status: Acute (3) Acute exacerbation of chronic obstructive pulmonary disease: Status: Acute (4) HFrEF (heart failure with reduced ejection fraction): (5) Bipolar 1 disorder: (6) Insulin dependent type 2 diabetes mellitus: (7) Farrell's esophagus: (8) PEG (percutaneous endoscopic gastrostomy) status: (9) DVT prophylaxis: Status: Acute Discharge Plan Disposition Patient Disposition: [facility] Facility(SNF) Condition: Improving Discharge Details Reason For Visit: Pneumonia/COPD exacerbation Admit Date/Time: 08/29/24 09:08 Admit Provider: Moustapha Guerra Attending Provider: Moustapha Guerra Primary Care Provider: Ana Gillespie Hospital Course Hospital Course: 64 yo F with h/o COPD on home O2 at night, HFimpEF, stable bipolar 1, and PEG feeds due to esophageal scaring who is resident at [facility] who presented to the ED with 2 days of progressive cough and shortness of breath and hypoxia into the 80s. She initially required 5 liters oxygen and down to 2 liters in the emergency room. She was weaned to room air by the end of the day 08/29 and was stable overnight. She received 2 doses of ceftriaxone and azithromycin. She was discharged with 3 more days of antibiotics and prednisone. She was evaluated by physical therapy and transferred back to the SNF to complete her therapy. she did have a red rash under her breasts and nystatin was administered topically. Tube feeds should be resumed as per previous. She did not receive her full dose overnight 08/29- because she was full and mildly nauseous, but these symptoms resolved by morning. Home Meds and New Rx's Prescriptions: New prednisone 20 mg Tablet 40 mg NG DAILY 3 Days Qty: 6 0RF Rx Instructions: starting 08/31 azithromycin 250 mg tablet 250 mg feeding tube DAILY 3 Days Qty: 3 0RF Rx Instructions: start 08/31, can crush amoxicillin-pot clavulanate 200-28.5 mg/5 mL suspension for reconstitution 20 ml feeding tube BID 3 Days Qty: 120 0RF Rx Instructions: start 08/31 Continued bupropion HCl 100 mg tablet 300 mg PO DAILY Patient Comments: via g-tube, per pcp ov notes 8/2/23 RH protein Powder See Rx Instructions PO .COMPLEX Rx Instructions: 2 scoops daily duloxetine [Cymbalta] 20 mg capsule,delayed release(DR/EC) 20 mg PO HS Patient Comments: TAKE 1 CAPSULE PER DAY VIA G-TUBE IN THE EVENING duloxetine [Cymbalta] 60 mg capsule,delayed release(DR/EC) 60 mg PO DAILY Rx Instructions: Given via G-tube Entresto 24-26 mg tablet 1 tab feeding tube DAILY Patient Comments: via g-tube Jardiance 10 mg tablet 10 mg feeding tube DAILY atorvastatin 80 mg tablet 80 mg feeding tube QPM valproic acid (as sodium salt) 250 mg/5 mL solution 300 mg feeding tube TID Rx Instructions: 6mls TID metoprolol succinate 50 mg tablet extended release 24 hr 25 mg PO BID Rx Instructions: Given via G-tube sucralfate 1 gram tablet 1 g PO QID Patient Comments: TAKE ONE TABLET BY MOUTH FOUR TIMES A DAY ferrous sulfate 300 mg (60 mg iron)/5 mL liquid 300 mg feeding tube .QOD Patient Comments: TAKE 5ML VIA G-TUBE EVERY OTHER DAY Humulin N NPH Insulin KwikPen 100 unit/mL (3 mL) insulin pen See Rx Instructions .ROUTE .COMPLEX Qty: 0 0RF Rx Instructions: 20 units at 11 am followed by sliding scale at 3 pm (5 units for blood sugar of 250 plus 1 additional unit for any 20 points that the blood sugar is above 250) ibuprofen 100 mg/5 mL suspension 600 mg PO Q8H PRN guaifenesin 200 mg/5 mL liquid 200 mg feeding tube Q4H PRNQty: 118 0RF aspirin 81 mg tablet,chewable 81 mg feeding tube DAILY Qty: 30 0RF bisacodyl 10 mg suppository 10 mg SD DAILY PRN quetiapine 100 mg tablet 300 mg feeding tube DAILY folic acid 1 mg Tablet 1 mg feeding tube DAILY albuterol sulfate 90 mcg/actuation HFA aerosol inhaler 2 puff inhalation Q4H PRN acetaminophen 500 mg/15 mL liquid 1,000 mg feeding tube Q8H PRN nystatin 100,000 unit/gram powder 1 applic TOPICAL TID PRN Patient Comments: APPLY TO BUTTOCKS THREE TIMES A DAY NEEDED pantoprazole [address] for susp in packet 40 mg G-tube DAILY Patient Comments: Take 1 packet via g-tube twice a day Administer in 10 mL of apple juice via g-tub, then follow with another 10 mL. nystatin 100,000 unit/gram cream 1 applic TOPICAL TID PRN Patient Comments: APPLY A SMALL AMOUNT TO AFFECTED AREA(S) ON BUTTOCKS THREE TIMES A DAY NEEDED melatonin 3 mg tablet 9 mg feeding tube HS Patient Comments: TAKE THREE TABLETS VIA G-TUBE EVERY NIGHT DIRECTED insulin glargine [Lantus Solostar U-100 Insulin] 100 unit/mL (3 mL) insulin pen 10 unit SUBCUT QPM Patient Comments: INJECT 10 UNITS UNDER THE SKIN NIGHTLY DIRECTED ondansetron HCl 4 mg tablet 4 mg feeding tube Q6H PRN Patient Comments: TAKE ONE TABLET VIA G-TUBE EVERY 8 HOURS NEEDED nystatin 100,000 unit/gram ointment 1 applic TOPICAL BID Patient Comments: APPLY TO AFFECTED AREA(S) TWO TIMES A DAY (DME) Space Chamber Spacer See Rx Instructions .Route Qty: 1 0RF Rx Instructions: As directed doxycycline hyclate 100 mg Capsule 100 mg feeding tube BID Qty: 7 0RF Discharge Instructions Instructions: Exacerbation of COPD (DC) Additional Instructions: use your inhaler as needed take the new medications starting 08/31 Activity:: Activity as Tolerated Equipment/Supplies:: No Equipment Needed Diet:: Carb Counting Discharge Orders Discharge Orders: Discharge Order (Routine); Ordered 08/30/24 Ordered By: Moustapha Guerra DS: Summary Time Spent with Patient providing and/or coordinating discharge services: Greater than 30 minutes Status at Discharge Functional status at discharge: uses cane/walker Overall status at discharge: patient is back to baseline Mental Status: mental status grossly normal Speech and Movement: speech and movement normal Mood: congruent mood Affect: normal affect Quality:SDOH Health Related Social Needs: No Data to Display Exam Narrative Exam Narrative: GEN: Alert and oriented x 4. No acute distress at rest. LUNGS: Course breath sounds, otherwise CTAB with no increase in respiratory effort CV: RRR with no murmurs, gallops, or rubs. ABD: active bowel sounds, soft, nontender and nondistended. No masses. EXT: no cyanosis, clubbing, or edema PSYCH: normal mood and affect, normal thought process Psych Mental Status: mental status grossly normal Speech and Movement: speech and movement normal Mood: congruent mood Affect: normal affect DS: Data Vitals/I&O Vitals and I&O: Vital Signs Temperature 37.1 C 08/30/24 11:19 Temperature Source Temporal Artery Scan 08/30/24 11:19 Pulse 68 08/30/24 11:19 Pulse Rhythm Regular 08/29/24 11:06 Respiratory Rate 16 08/30/24 11:19 Respiratory Effort Normal, Non-Labored 08/29/24 11:06 Respiratory Depth Normal 08/29/24 11:06 Respiratory Pattern Normal 08/29/24 11:06 Blood Pressure 104/52 L 08/30/24 11:19 Pulse Oximetry 91 L 08/30/24 11:19 Oxygen Delivery Method Room Air 08/30/24 11:19 Oxygen Flow Rate 0 08/30/24 11:19 Pain Level 1 08/30/24 11:19 Comment Notifying RN 08/30/24 11:19 Intake & Output 08/29/24 08/30/24 08/30/24 23:59 11:59 23:59 Intake Total 920 / 980 300 / 300 Output Total 2645 / 2645 2049 Balance -1725 / -1665 -1750 / -1750 Weight 69.853 kg Intake: IV 260 / 320 300 / 300 Oral 660 / 660 Output: Urine 2645 / 2645 2049 Other: Urine Color Yellow Yellow Urine Appearance Clear Clear Urine Odor Normal None Comment Patient voided in bedside commode with stand by assistance. PFSH All Active Problems DVT prophylaxis (Acute) Acute exacerbation of chronic obstructive pulmonary disease (Acute) Left lower lobe pneumonia (Acute) PEG tube malfunction (Acute) Dilatation of esophagus (Acute) Acute and chronic respiratory failure with hypoxia (Acute) History of total right hip replacement (Acute 03/01/24) As treatment for R femoral neck fracture Medical History COPD (chronic obstructive pulmonary disease) with acute bronchitis Vitamin D deficiency Hypotension HFrEF (heart failure with reduced ejection fraction) Bronchiolitis COPD with acute exacerbation Myocardial injury Acute respiratory failure with hypoxia and hypercarbia Acute on chronic respiratory failure with hypoxia and hypercapnia Pneumonitis Aspiration pneumonia Gastrostomy tube obstruction Lab test positive for detection of COVID-19 virus Acute on chronic respiratory failure with hypoxia Esophageal stricture Chronic systolic (congestive) heart failure Insulin dependent type 2 diabetes mellitus Aspiration pneumonia COVID Pre-op evaluation Abnormal chest xray H/O: pneumonia Stress-induced cardiomyopathy acute onset managed at [facility] 08/30 pressors, EF 25%, has since recovered RH NSTEMI (non-ST elevated myocardial infarction) Per pt. states she did not have a heart attack Acute cardiogenic pulmonary edema Acute metabolic encephalopathy Bilateral pneumonia Acute respiratory failure with hypoxia Hypokalemia Closed fracture of neck of left femur s/p Percutaneous Screw Fixation 08/09/22 Constipation Drug-induced parkinsonism Neuroleptic induced parkinsonism Diabetes mellitus type 2 in obese Tubular adenoma (~06/10/21) Hyperplastic colon polyp (~06/10/21) Erosive esophagitis Esophageal ulcer with bleeding Chronic iron deficiency anemia Farrell's esophagus Chronic diarrhea Black tarry stools Pleural effusion Leukocytosis ETOH abuse Ventral hernia Chronic pancreatitis due to acute alcohol intoxication Alcohol abuse Per pt. states she has never had an issues with any subtances Cholelithiasis Atrial flutter History of pilonidal cyst Diabetes Bipolar 1 disorder Anxiety Depression Surgical History PEG (percutaneous endoscopic gastrostomy) status History of total left hip arthroplasty (01/19/23) Status post hip surgery S/P laparoscopic procedure cyst removed from stomach per patient S/P surgical removal of pilonidal cyst History of esophagogastroduodenoscopy (EGD) (~06/10/21) History of colonoscopy with polypectomy (~06/10/21) History of hysterectomy History of tonsillectomy History of section Family History Father Hypertension Diabetes Heart disease Social History (Updated 08/29/24 @ 17:43 by Moustapha Guerra) Smoking/Tobacco Use Status: Former Tobacco Use Quit Date: 02/07/21 Smoking risk assessment performed?: Yes Alcohol Intake: never Drug use: Never Substance use type: does not use Household members: spouse Housing: assisted Number of Children: 2 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 Additional Social history: At [facility] with Time Spent with Patient Time Spent with Patient: <45 minutes Time was spent: preparing to see the patient(eg.review tests), obtaining and/or reviewing separately otained hiistory, ordering medications,tests, procedures, referring, communicating with other health care program director, indepentently interpreting results, counseling the patient and care coordination
--- NOTE | 2024-08-30 12:48 | CMDISCH_ITS ---
Date of service: 08/30/24 Time of Service: 12:48 LACE Index Scoring Tool Questions: Length of Stay (in days): 1 Was the patient admitted via the E.D.?: Yes Comorbidities: Previous M.I., Congestive Heart Failure and Chronic Pulmonary Disease E.D. Visits: 5 Answers: Total Score: 13 Risk of Readmission: High Risk Care Management Discharge Plan Reason for Hospitalization: respiratory failure/pneumonia Discharge Plan: Jennifer was admitted last night for pneumonia with an increase in her O2 needs. She quickly responded to treatment and was discharged back to [facility], where she resides, this afternoon. Jennifer transported via [facility] wheel chair van. Patient/Family Education Needs: Review of discharge instructions, activity, limitations, and discuss ask me 3. SDOH Health Related Social Needs: No Data to Display
== END 2024-08-30 14:01 | disposition skilled nursing facility (03) | DRG 193 ==
LOC: ER 09:08 → MS 10:49
PROVIDERS: Admitting Provider Family Medicine; Emergency Provider Emergency Medicine; PCP Nurse Practitioner Family; Responsible Provider Family Medicine; Visit Provider Family Medicine
DX: J18.9 Pneumonia, unspecified organism (principal); J96.21 Acute and chronic respiratory failure with hypoxia; J44.0 Chronic obstructive pulmonary disease with (acute) lower respiratory infection; J44.1 Chronic obstructive pulmonary disease with (acute) exacerbation; I50.22 Chronic systolic (congestive) heart failure; G21.11 Neuroleptic induced parkinsonism; K86.0 Alcohol-induced chronic pancreatitis; F31.9 Bipolar disorder, unspecified; E11.9 Type 2 diabetes mellitus without complications; Z96.641 Presence of right artificial hip joint; K22.2 Esophageal obstruction; K22.70 Barrett's esophagus without dysplasia; E55.9 Vitamin D deficiency, unspecified; I25.2 Old myocardial infarction; D50.9 Iron deficiency anemia, unspecified; K52.9 Noninfective gastroenteritis and colitis, unspecified; Z93.1 Gastrostomy status; Z79.4 Long term (current) use of insulin; Z99.81 Dependence on supplemental oxygen; Z79.899 Other long term (current) drug therapy; Z79.84 Long term (current) use of oral hypoglycemic drugs
CPT/HCPCS: 00123; 36415; 80053; 83690; 87637; 93005; 94640; 96365; 96368; 96372; 96375; 96376; 97161; 99291; J1650; 71046; 83735; 83880; 84484; 85025; 93010; 99222; 99239; J0456; J0696; J1815; J2405; J2919; J7512; J7620

== ENCOUNTER 2024-09-16 16:42 | Outpatient (REF) | payer MEDICAID, SELFPAY ==
[2024-09-16 16:40] LABS: Bilirubin Negative (Negative); Blood Moderate (Negative); Clarity Clear (Clear); Glucose 500 mg/dL (Negative); Ketones Negative (Negative); Leukocyte Esterase Negative (Negative); Nitrite Negative (Negative); Specific Gravity 1.015 (1.005-1.025); Urobilinogen 0.2 mg/dL (Up to 0.2); pH 7.5 (5-8)
[2024-09-16 16:50] LABS: Bacteria Negative HPF (Negative); C & S Indicated? C&S Done As Ordered; Crystals Negative HPF (Negative); Epithelial Cells Rare HPF (Negative); Mucus Negative (Negative); RBC 20-50 HPF (0-2); WBC Negative HPF (0-5)
== END 2024-09-16 16:43 | disposition home or self-care (01) ==
LOC: LBN 16:42
PROVIDERS: PCP Nurse Practitioner Family; Visit Provider Nurse Practitioner Family
DX: R30.0 Dysuria (principal); R35.0 Frequency of micturition; R82.89 Other abnormal findings on cytological and histological examination of urine
CPT/HCPCS: 81003; 81015; 87086

== ENCOUNTER 2024-09-25 02:52 | Outpatient (CLI) | payer MEDICAID, SELFPAY ==
[2024-09-25] MEDS: Barium Sulfate 98% W/W 140 ML BTL PO (10:10)
--- NOTE | 2024-09-25 10:35 | DI.RAD_ITS ---
Exam(s) RF BARIUM SWALLOW EXAM: RF BARIUM SWALLOW CLINICAL HISTORY: J69.0 Pneumonitis due to inhalation of food and vomit TECHNIQUE: 2D and realtime digital imaging was performed. CONTRAST MATERIAL: Thick and thin barium and barium tablet were administered. COMPARISON: CT CT CHEST PE CTA from 05/01/2024 CR,XR XR ABDOMEN FLAT PLATE from 08/27/2024 CR XR CHEST 2V PA LATERAL from 08/29/2024 FINDINGS: The PA and lateral chest films show normal heart size and clear lung howard. The lateral account services manager view of the neck is unremarkable. Esophagus: The patient swallowed barium without difficulty. There was consistent laryngeal penetrati on and an episode of aspiration observed. There is a smooth stricture in the mid esophagus extending over a roughly 2 centimeter length. Noevi dence for mucosal erosions. No mass is visible. The esophagus is dilated superior to this level. Motility: There is a normal primary stripping wave. No tertiary contractions were noted. There is a moderate-sized sliding hiatal hernia. Severegastroesophageal reflux was observed during the exam. IMPRESSION: Normal moderate-sized sliding hiatal hernia. Severe gastroesophageal reflux. Smooth stricture exten ding for 2 cm in the mid esophagus. The esophagus is dilated superior to this level. Laryngeal penetration and a single episode of aspiration was observed. RADIATION DOSE DELIVERED: shaina Mullins=21.5 mGy
[2024-09-25] MEDS: Barium Sulfate 60% W/V 355 ML BTL PO (10:51)
== END 2024-09-25 03:12 ==
LOC: DI 02:52
PROVIDERS: PCP Nurse Practitioner Family; Visit Provider Nurse Practitioner Gerontology
DX: J69.0 Pneumonitis due to inhalation of food and vomit (principal); K21.9 Gastro-esophageal reflux disease without esophagitis
CPT/HCPCS: 74221; J3490

== ENCOUNTER 2024-11-06 01:21 | Outpatient (CLI) | payer MEDICAID, SELFPAY ==
--- NOTE | 2024-11-06 13:15 | DI.RAD_ITS ---
Exam(s) XR LUMBAR SPINE COMPLETE EXAM: XR LUMBAR SPINE COMPLETE CLINICAL HISTORY: PAIN, M54.6. TECHNIQUE: 2D digital imaging was performed. Five views. COMPARISON: CR XR DEXA BONE DENSITY W/WO RASHAD from 12/17/2022 FINDINGS: BONES: No fracture or destructive lesion. Vertebral body heights are maintained. Mild facet hypertrophy identified . DISKS: Are small endplate osteophytes. Intervertebral disc spaces are maintained. ALIGNMENT: Lumbar spinal alignment is within normal limits. SOFT TISSUE: Norm the aorta is calcified and normal in diameter. IMPRESSION: Mild degenerative changes of the lumbar spine. DATA REPOSITORY: RADIATION DOSE DELIVERED:
--- NOTE | 2024-11-06 13:15 | DI.RAD_ITS ---
Exam(s) XR HIP PELVIS ADULT BL EXAM: XR HIP PELVIS ADULT BL CLINICAL HISTORY: BILAT HIP AND PELVIS PAIN,M25.55. TECHNIQUE: 2D digital imaging was performed. Three views. COMPARISON: CR XR PELVIS AP from 03/01/2024 FINDINGS: BONES: No acute fracture is present. No bony destructive lesion is seen. Stable appearance of bilateral hip prostheses. No abnormal surrounding lucencies. JOINTS: No dislocation present. SI joints and pubic symphysis are unremarkable. SOFT TISSUE: Normal vascular calcifications. IMPRESSION: Stable appearance of bilateral hip prostheses. DATA REPOSITORY: RADIATION DOSE DELIVERED:
--- NOTE | 2024-11-06 13:15 | DI.RAD_ITS ---
Exam(s) XR THORACIC SPINE COMPLETE EXAM: XR THORACIC SPINE COMPLETE CLINICAL HISTORY: pain,m54.6. TECHNIQUE: 2D digital imaging was performed. Three views. COMPARISON: No exams were available for comparison FINDINGS: BONES: There is no fracture or destructive lesion. The vertebral bodies and posterior elements are unremarkable. ALIGNMENT: Within normal limits. DISKS: Interverebral disc spaces are maintained. Small endplate osteophytes. SOFT TISSUE: Visualized lungs are clear. IMPRESSION: Mild degenerative disc changes. DATA REPOSITORY: RADIATION DOSE DELIVERED:
== END 2024-11-06 01:41 ==
LOC: DI 01:21
PROVIDERS: PCP Nurse Practitioner Family; Visit Provider Family Medicine Geriatric Medicine
DX: M54.6 Pain in thoracic spine (principal); Z96.643 Presence of artificial hip joint, bilateral; M25.551 Pain in right hip; M25.552 Pain in left hip
CPT/HCPCS: 73521; 72072; 72110

== ENCOUNTER 2024-11-16 14:01 | Inpatient (IN) | payer MEDICAID, SELFPAY ==
[2024-11-16] VITALS (38 sets, daily range): BP systolic 108–153; BP diastolic 34–85; PULSE 71–85; RESP 12–23; TEMP 36.6–36.7; O2SAT 90–94
--- NOTE | 2024-11-16 14:00 | RT.EKG_ITS ---
APPROVED REPORT Exam: Resting ECG Reason for Exam: chest pain Patient Location: E HR:74 bpm ECG Measurements Heart Rate 74 AXIS LA 158 P 48 QRSd 78 QRS 68 QT 365 T 29 QTc 406 Conclusion Sinus rhythm...normal P axis, V-rate 60- 99 Low voltage, extremity and precordial leads...extremity<0.5mV, precordial<1.0mV Physician: no stemi
--- NOTE | 2024-11-16 14:08 | DI.CT_ITS ---
Exam(s) CT CHEST PE ABD PELVIS W EXAM: CT CHEST PE ABD PELVIS W CLINICAL HISTORY: L chest pain, pleuritic, epigastric pain vomiting. TECHNIQUE: Imaging Protocol: Axial computed tomography images with coronal and sagittal reformatted images were created and reviewed. Computer aided detection (CAD) was utilized. CONTRAST MATERIAL: Intravenous: Omnipaque 350 Contrast volume:75 ml Oral: / no COMPARISON: CT CT CHEST PE ABD PELVIS W from 01/31/[address] CHEST PE CTA from 05/01/2024 FINDINGS: CHEST: Exam is mildly limited by motion. Pulmonary parenchyma: Evaluation limited due to expiratory changes and mild respiratory motion. Multifocal airspace opacities noted in the inferolateral left upper lobe and lingula as well as left lower lobe. Minimal increased densities in the right lung. No dominant measurable mass. Tracheobronchial tree: No bronchiectasis. No mucous plugging.No bronchial wall thickening. Pleura: No effusion or pneumothorax. Mediastinum: The esophagus is markedly distended and fluid filled. Pulmonary arteries: No visible emboli. Cardiovascular: No pericardial effusion. Thoracic aorta non-dilated. Bones: Unremarkable for age. No lytic or blastic lesions.No compression fractures. Soft tissues: Unremarkable. ABDOMEN and PELVIS: Liver: Normal density. No suspicious mass. Gallbladder and biliary tract: Several small stones are noted. No abnormal distension or wall thickening. No biliary dilatation. Pancreas: Normal density, no abnormal calcifications or inflammatory process. Spleen: Normal. Kidneys: Normal size, contour and axis. No radiodense stones. No obstructive uropathy. No suspicious masses seen. Adrenal glands: No masses seen. Aorta: Abdominal portion non-dilated. Atherosclerotic calcifications. Lymph nodes: Within normal limits. Soft tissues: Unremarkable. Bladder: Unremarkable as visualized. Partially obscured by artifact. Bowel: Gastrostomy tube again noted. The stomach is filled with fluid. The duodenum is empty. There is no abnormal small bowel distension. The colon is redundant and shows increased stool throughout. No obstruction or bowel wall thickening. Peritoneal cavity: No ascites. No focal collection. No mesenteric inflammatory response. No free air. Bones: Bilateral hip prostheses create artifact. Reproductive organs: Obscured. IMPRESSION: No evidence of pulmonary emboli Patchy opacities in the left upper and lower lobes suspicious for aspiration pneumonia. Esophagus and stomach are distended with fluid. Peg tube in place. Findings called to Dr. Eason of the emergency department. RADIATION DOSE DELIVERED: DATA REPOSITORY: All CT scans at this facility are submitted to the National Radiology Data Registry (NRDR) Dose Index Registry (DIR) with the [employer] ([employer]). RADIATION OPTIMIZATION: All CT scans at this facility use at least one of these dose optimization techniques: automated exposure control; mA and/or kV adjustment per patient size (includes targeted exams where dose is matched to clinical indication); or iterative reconstruction.
--- NOTE | 2024-11-16 14:11 | W.ED.GENAD ---
Discharge Plan Disposition Patient Disposition: Admit to [facility] Condition: Good Discharge Details Clinical Impression: Paroxysmal supraventricular tachycardia by electrocardiogram (ECG), Community acquired pneumonia Primary Care Provider: Ana Gillespie ED Provider: Ismael Eason Home Meds and New Rx's Prescriptions: No Action bupropion HCl 100 mg tablet 300 mg PO DAILY Patient Comments: via g-tube, per pcp ov notes 12/09/22 RH duloxetine [Cymbalta] 20 mg capsule,delayed release(DR/EC) 20 mg PO HS Patient Comments: TAKE 1 CAPSULE PER DAY VIA G-TUBE IN THE EVENING duloxetine [Cymbalta] 60 mg capsule,delayed release(DR/EC) 60 mg PO DAILY Rx Instructions: Given via G-tube Entresto 24-26 mg tablet 1 tab feeding tube DAILY Patient Comments: via g-tube Jardiance 10 mg tablet 10 mg feeding tube DAILY atorvastatin 80 mg tablet 80 mg feeding tube QPM valproic acid (as sodium salt) 250 mg/5 mL solution 300 mg feeding tube TID Rx Instructions: 6mls TID metoprolol succinate 50 mg tablet extended release 24 hr 25 mg PO BID Rx Instructions: Given via G-tube ferrous sulfate 300 mg (60 mg iron)/5 mL liquid 300 mg feeding tube .QOD Patient Comments: TAKE 5ML VIA G-TUBE EVERY OTHER DAY Humulin N NPH Insulin KwikPen 100 unit/mL (3 mL) insulin pen See Rx Instructions .ROUTE .COMPLEX Qty: 0 0RF Rx Instructions: 20 units at 11 am followed by sliding scale at 3 pm (5 units for blood sugar of 250 plus 1 additional unit for any 20 points that the blood sugar is above 250) ibuprofen 100 mg/5 mL suspension 600 mg PO Q8H PRN guaifenesin 200 mg/5 mL liquid 200 mg feeding tube Q4H PRNQty: 118 0RF aspirin 81 mg tablet,chewable 81 mg feeding tube DAILY Qty: 30 0RF bisacodyl 10 mg suppository 10 mg [place] DAILY PRN quetiapine 100 mg tablet 300 mg feeding tube DAILY folic acid 1 mg Tablet 1 mg feeding tube DAILY albuterol sulfate 90 mcg/actuation HFA aerosol inhaler 2 puff inhalation Q4H PRN acetaminophen 500 mg/15 mL liquid 1,000 mg feeding tube Q8H PRN pantoprazole [address] for susp in packet 40 mg G-tube DAILY Patient Comments: Take 1 packet via g-tube twice a day Administer in 10 mL of apple juice via g-tub, then follow with another 10 mL. nystatin 100,000 unit/gram cream 1 applic TOPICAL TID PRN Patient Comments: APPLY A SMALL AMOUNT TO AFFECTED AREA(S) ON BUTTOCKS THREE TIMES A DAY NEEDED melatonin 3 mg tablet 9 mg feeding tube HS Patient Comments: TAKE THREE TABLETS VIA G-TUBE EVERY NIGHT DIRECTED insulin glargine [Lantus Solostar U-100 Insulin] 100 unit/mL (3 mL) insulin pen 10 unit SUBCUT QPM Patient Comments: INJECT 10 UNITS UNDER THE SKIN NIGHTLY DIRECTED ondansetron HCl 4 mg tablet 4 mg feeding tube Q6H PRN Patient Comments: TAKE ONE TABLET VIA G-TUBE EVERY 8 HOURS NEEDED nystatin 100,000 unit/gram ointment 1 applic TOPICAL BID Patient Comments: APPLY TO AFFECTED AREA(S) TWO TIMES A DAY (DME) Space Chamber Spacer See Rx Instructions .Route Qty: 1 0RF Rx Instructions: As directed HPI General Date/Time Provider Initiated Documentation: 11/16/24 14:07. HPI Narrative: This is a pleasant 64-year-old female with a past medical history of COPD, esophageal stricture severe enough that she has a PEG tube for most of her eating, type 2 diabetes, GERD, Farrell's esophagus, bipolar disorder, stress-induced cardiomyopathy, previous NSTEMI without any stenting, hysterectomy, tonsillectomy, who presents today for evaluation of chest pain. [facility] She states that about 30 minutes prior to arrival she developed left-sided chest pain which she describes as sharp and stabbing in nature, going to her back. She also admits to epigastric pain and discomfort, with associated nausea and vomiting, all of which is started within the last hour. The pain in her chest is pleuritic in nature. She does have oxygen to use as needed on a as needed basis, but otherwise is oxygen independent. She does have a distant history of tobacco abuse. As the symptoms just started a few minutes ago, she has no additional complaints. No hemoptysis. No hematemesis. She does admit to mild abdominal discomfort and nausea. EMS did bring the patient over, no other complaints at this time. No other modifying factors. Related Data Home Medications ?Medication ?Instructions ?Recorded ?Confirmed atorvastatin 80 mg tablet 80 mg feeding tube QPM 11/18/22 11/16/24 empagliflozin 10 mg tablet 10 mg feeding tube DAILY 11/18/22 11/16/24 (Jardiance) metoprolol succinate 50 mg 25 mg PO BID 11/18/22 11/16/24 tablet,extended release 24 hr sacubitril 24 mg-valsartan 26 mg 1 tab feeding tube DAILY 11/18/22 11/16/24 tablet (Entresto) valproic acid (as sodium salt) 250 300 mg feeding tube TID 11/18/22 11/16/24 mg/5 mL oral solution bupropion HCl 100 mg tablet 300 mg PO DAILY 12/16/22 11/16/24 ferrous sulfate 300 mg (60 mg 300 mg feeding tube .QOD 01/31/23 11/16/24 iron)/5 mL oral liquid Held on 11/16/24. Instructions: Pt Stopped/Never Started insulin NPH isoph U-100 human 100 See Rx Instructions .Route 02/28/23 11/16/24 unit/mL (3 mL) subcutaneous pen .COMPLEX #0 mL (Humulin N NPH U-100 Insulin KwikPen) Held on 11/16/24. Instructions: not on med list from [facility] ibuprofen 100 mg/5 mL oral 600 mg PO Q8H PRN 04/04/23 11/16/24 suspension Held on 11/16/24. Instructions: Not on pts med list from [facility] nystatin 100,000 unit/gram topical 1 applic topical TID PRN 05/03/23 11/16/24 cream pantoprazole 40 mg granules 40 mg G-tube DAILY 05/03/23 11/16/24 delayed-release for susp in packet insulin glargine 100 unit/mL (3 10 unit subcut QPM 05/04/23 11/16/24 mL) subcutaneous pen (Lantus Solostar U-100 Insulin) melatonin 3 mg tablet 9 mg feeding tube HS 05/04/23 11/16/24 ondansetron HCl 4 mg tablet 4 mg feeding tube Q6H PRN 05/08/23 11/16/24 aspirin 81 mg chewable tablet 81 mg feeding tube DAILY #30 tabs 07/05/23 11/16/24 Held on 11/16/24. Instructions: not on med list from [facility] guaifenesin 200 mg/5 mL oral liquid 200 mg (5 mL) feeding tube Q4H PRN 07/05/23 11/16/24 Held on 11/16/24. #118 mL Instructions: Not on med list from [facility] duloxetine 20 mg capsule,delayed 20 mg PO HS 01/24/24 11/16/24 release (Cymbalta) duloxetine 60 mg capsule,delayed 60 mg PO DAILY 01/24/24 11/16/24 release (Cymbalta) nystatin 100,000 unit/gram topical 1 applic topical BID 04/19/24 11/16/24 ointment inhalational spacing device (Space #1 ea 04/21/24 11/16/24 Chamber) acetaminophen 500 mg/15 mL oral 1,000 mg feeding tube Q8H PRN 08/29/24 11/16/24 liquid albuterol sulfate 90 mcg/actuation 2 puff inhalation Q4H PRN 08/29/24 11/16/24 aerosol inhaler bisacodyl 10 mg rectal suppository 10 mg [place] DAILY PRN 08/29/24 11/16/24 folic acid 1 mg tablet 1 mg feeding tube DAILY 08/29/24 11/16/24 quetiapine 100 mg tablet 300 mg feeding tube DAILY 08/29/24 11/16/24 Previous Rx's ?Medication ?Instructions ?Recorded insulin NPH isoph U-100 human 100 See Rx Instructions .Route 02/28/23 unit/mL (3 mL) subcutaneous pen .COMPLEX #0 mL (Humulin N NPH U-100 Insulin KwikPen) Held on 11/16/24. Instructions: not on med list from [facility] aspirin 81 mg chewable tablet 81 mg feeding tube DAILY #30 tabs 07/05/23 Held on 11/16/24. Instructions: not on med list from [facility] guaifenesin 200 mg/5 mL oral liquid 200 mg (5 mL) feeding tube Q4H PRN 07/05/23 Held on 11/16/24. #118 mL Instructions: Not on med list from [facility] inhalational spacing device (Space #1 ea 04/21/24 Chamber) Allergies Allergy/AdvReac Type Severity Reaction Status Date / Time metformin AdvReac Unknown Diarrhea Verified 11/16/24 15:41 meperidine AdvReac gi upset Verified 11/16/24 15:41 General Stated Complaint: Chest Pain ASHANTI: 3 Exam Narrative Exam Narrative: 1.Const: Well-nourished, Well-developed, appearing stated age 2.Eyes: PERRL, no conjunctival injection, and symmetrical lids. 3.ENT: Atraumatic external nose and ears. Moist MM. Neck: Symmetric, trachea midline, No thyromegaly. 4.CVS: +S1/S2, Peripheral pulses 2+ and equal in all extremities. Brisk capillary refill in all extremities. 5.RESP: Unlabored respiratory effort. Clear to auscultation bilaterally. No wheezes rales or rhonchi 6.GI: Soft, nondistended, mild tenderness in the epigastric region around the PEG tube and in the left and right upper abdominal quadrants. 7.MSK: Normocephalic/Atraumatic, Extremities w/o deformity or ttp No cyanosis or clubbing, Normal movement of all extremities 8.Skin: Warm, Dry. No rashes or lesions. 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 Sensation grossly intact, no focal neurologic deficits. 10.Psych: (AAO) x3. Appropriate mood and affect Course Vital Signs Vital signs: Vital Signs Temperature 36.7 C 11/16/24 14:04 Pulse 78 11/16/24 14:04 Respiratory Rate 20 11/16/24 14:04 Blood Pressure 153/63 H 11/16/24 14:04 Pulse Oximetry 94 11/16/24 14:04 Temperature 36.7 C 11/16/24 14:04 Temperature Source Oral 11/16/24 14:04 Pulse 78 11/16/24 14:04 Respiratory Rate 20 11/16/24 14:04 Blood Pressure 153/63 H 11/16/24 14:04 Blood Pressure Position Supine 11/16/24 14:04 Pulse Oximetry 94 11/16/24 14:04 Oxygen Delivery Method Room Air 11/16/24 14:04 Oxygen Flow Rate 0 11/16/24 14:04 Pain Level 10 11/16/24 14:04 Medical Decision Making This is a pleasant 64-year-old female with a past medical history of COPD, esophageal stricture severe enough that she has a PEG tube for most of her eating, type 2 diabetes, GERD, Farrell's esophagus, bipolar disorder, stress-induced cardiomyopathy, previous NSTEMI without any stenting, hysterectomy, tonsillectomy, who presents today for evaluation of chest pain. [facility] She states that about 30 minutes prior to arrival she developed left-sided chest pain which she describes as sharp and stabbing in nature, going to her back. She also admits to epigastric pain and discomfort, with associated nausea and vomiting, all of which is started within the last hour. The pain in her chest is pleuritic in nature. She does have oxygen to use as needed on a as needed basis, but otherwise is oxygen independent. She does have a distant history of tobacco abuse. As the symptoms just started a few minutes ago, she has no additional complaints. No hemoptysis. No hematemesis. She does admit to mild abdominal discomfort and nausea. EMS did bring the patient over, no other complaints at this time. No other modifying factors. Lungs are clear to auscultation, O2 saturations normal, no trauma to suggest pneumothorax. She does have epigastric discomfort and tenderness in the left and right upper quadrants as well. Concern for obstruction although less likely. Concern for pancreatitis, cardiac etiology, less likely pneumonia or PE. With the patient's age and risk factors and vomiting I do feel CT imaging is indicated to rule out obstruction, we will also add chest imaging to rule out PE. Will give a GI cocktail, antiemetics, gently rehydrate for concern for mild dehydration after vomiting, monitor closely and reassess. EKG shows no evidence of STEMI 6:05 PM Laboratory workup has returned, patient has minimally elevated white count at 11, mild left shift, lactate normal, electrolytes normal, troponin stable, proBNP normal suggesting no signs of heart strain. Lipase is normal. Urinalysis shows some ketones but no infection. She was rehydrated. CT scan shows evidence of notable left-sided pneumonia, likely aspiration, as well as an esophagus and stomach that are distended with fluid but no evidence of obstruction. PEG tube appears in place. Concern for aspiration pneumonia/pneumonitis, likely from vomiting. Unasyn has been started, and patient would benefit from admission with her age, risk factors, and borderline hypoxemia at 90s to 91. Will contact the hospitalist for admission. Discussed the case with Dr. Giron, he agrees with the assessment and plan. I have extensively reviewed the treatment plan with the patient. I have addressed all patient concerns at this time. I have also discussed the plan with the admitting physician and they agree with the current assessment and plan and have agreed to assume responsibility for the patient. All parties demonstrate verbal understanding and agreement with our assessment and plan at this time. The documentation in this chart was dictated using [employer] dictation software. Please excuse any dictation errors. FINDINGS: CHEST: Exam is mildly limited by motion. Pulmonary parenchyma: Evaluation limited due to expiratory changes and mild respiratory motion. Multifocal airspace opacities noted in the inferolateral left upper lobe and lingula as well as left lower lobe. Minimal increased densities in the right lung. No dominant measurable mass. Tracheobronchial tree: No bronchiectasis. No mucous plugging.No bronchial wall thickening. Pleura: No effusion or pneumothorax. Mediastinum: The esophagus is markedly distended and fluid filled. Pulmonary arteries: No visible emboli. Cardiovascular: No pericardial effusion. Thoracic aorta non-dilated. Bones: Unremarkable for age. No lytic or blastic lesions.No compression fractures. Soft tissues: Unremarkable. ABDOMEN and PELVIS: Liver: Normal density. No suspicious mass. Gallbladder and biliary tract: Several small stones are noted. No abnormal distension or wall thickening. No biliary dilatation. Pancreas: Normal density, no abnormal calcifications or inflammatory process. Spleen: Normal. Kidneys: Normal size, contour and axis. No radiodense stones. No obstructive uropathy. No suspicious masses seen. Adrenal glands: No masses seen. Aorta: Abdominal portion non-dilated. Atherosclerotic calcifications. Lymph nodes: Within normal limits. Soft tissues: Unremarkable. Bladder: Unremarkable as visualized. Partially obscured by artifact. Bowel: Gastrostomy tube again noted. The stomach is filled with fluid. The duodenum is empty. There is no abnormal small bowel distension. The colon is redundant and shows increased stool throughout. No obstruction or bowel wall thickening. Peritoneal cavity: No ascites. No focal collection. No mesenteric inflammatory response. No free air. Bones: Bilateral hip prostheses create artifact. Reproductive organs: Obscured. IMPRESSION: No evidence of pulmonary emboli Patchy opacities in the left upper and lower lobes suspicious for aspiration pneumonia. Esophagus and stomach are distended with fluid. Peg tube in place. Findings called to Dr. Eason of the emergency department. [facility] All Active Problems (Updated 08/31/24 @ 00:03 by HELDER SRIVASTAVA) Community acquired pneumonia (Acute) Paroxysmal supraventricular tachycardia by electrocardiogram (ECG) (Acute) Acute exacerbation of chronic obstructive pulmonary disease (Acute) Left lower lobe pneumonia (Acute) PEG tube malfunction (Acute) Dilatation of esophagus (Acute) History of total right hip replacement (Acute 03/01/24) As treatment for R femoral neck fracture Medical History COPD (chronic obstructive pulmonary disease) with acute bronchitis Vitamin D deficiency Hypotension HFrEF (heart failure with reduced ejection fraction) Bronchiolitis COPD with acute exacerbation Myocardial injury Acute respiratory failure with hypoxia and hypercarbia Acute on chronic respiratory failure with hypoxia and hypercapnia Pneumonitis Aspiration pneumonia Gastrostomy tube obstruction Lab test positive for detection of COVID-19 virus Acute on chronic respiratory failure with hypoxia Esophageal stricture Chronic systolic (congestive) heart failure Insulin dependent type 2 diabetes mellitus Aspiration pneumonia COVID Pre-op evaluation Abnormal chest xray H/O: pneumonia Stress-induced cardiomyopathy acute onset managed at [facility] [place] [facility] 08/30 pressors, EF 25%, has since recovered RH NSTEMI (non-ST elevated myocardial infarction) Per pt. states she did not have a heart attack Acute cardiogenic pulmonary edema Acute metabolic encephalopathy Bilateral pneumonia Acute respiratory failure with hypoxia Hypokalemia Closed fracture of neck of left femur s/p Percutaneous Screw Fixation 08/09/22 Constipation Drug-induced parkinsonism Neuroleptic induced parkinsonism Diabetes mellitus type 2 in obese Tubular adenoma (~06/10/21) Hyperplastic colon polyp (~06/10/21) Erosive esophagitis Esophageal ulcer with bleeding Chronic iron deficiency anemia Farrell's esophagus Chronic diarrhea Black tarry stools Pleural effusion Leukocytosis ETOH abuse Ventral hernia Chronic pancreatitis due to acute alcohol intoxication Alcohol abuse Per pt. states she has never had an issues with any subtances Cholelithiasis Atrial flutter History of pilonidal cyst Diabetes Bipolar 1 disorder Anxiety Depression Surgical History PEG (percutaneous endoscopic gastrostomy) status History of total left hip arthroplasty (01/19/23) Status post hip surgery S/P laparoscopic procedure cyst removed from stomach per patient S/P surgical removal of pilonidal cyst History of esophagogastroduodenoscopy (EGD) (~06/10/21) History of colonoscopy with polypectomy (~06/10/21) History of hysterectomy History of tonsillectomy History of section Family History Father Hypertension Diabetes Heart disease Social History (Updated 08/29/24 @ 17:43 by Moustapha Guerra) Smoking/Tobacco Use Status: Former Tobacco Use Quit Date: 02/07/21 Smoking risk assessment performed?: Yes Alcohol Intake: never Drug use: Never Substance use type: does not use Household members: spouse Housing: alf Number of Children: 2 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
[2024-11-16 14:36] LABS: Abs Immature Grans 0.07 10^3/uL (0.0-0.06); HCT 45.4 % (36.0-46.0); HGB 14.8 g/dL (11.2-15.7); Immature Grans % 0.6 %; MCH 28.1 pg (27.0-33.0); MCHC 32.6 % (32.0-36.0); MCV 86 fL (80-95); MPV 12.8 fL (8.0-11.0); Platelet Count 104 10^3/uL (130-400); RBC 5.27 10^6/uL (3.93-5.22); RDW 14.6 % (11.7-14.6); RDW-SD 46.0 fL; WBC 11.01 10^3/uL (4.4-10.8)
[2024-11-16] MEDS: MYLANTA 30 ML, LIDOCAINE 2% VISCOUS UD 15 ML PO (14:49)
[2024-11-16] MEDS: Normal Saline 500 ML IV (14:49)
[2024-11-16] MEDS: Ondansetron 4 MG/2 ML VIAL IVP ×2 (14:49→19:38)
[2024-11-16 14:51] LABS: INR 0.9 (0.9-1.1); PTT Activated 22.0 sec (20.6-30.2); Prothrombin Time 9.4 sec (9.1-11.1)
[2024-11-16 15:03] LABS: ALT 23 U/L (14-59); AST 18 U/L (15-37); Albumin 3.0 g/dL (3.4-5.0); Alkaline Phosphatase 151 U/L (46-116); Anion Gap 9.6 mmol/L (3-11); BUN 19 mg/dL (7-18); Bilirubin, Total 0.4 mg/dL (0.2-1.0); CO2 25.4 mmol/L (21.0-32.0); Calcium 9.4 mg/dL (8.5-10.1); Chloride 101 mmol/L (98-107); Estimated GFR 82.23 (mL/min/1.73m2); Glucose 360 mg/dL (74-106); Lipase 19 U/L (<78); Potassium 4.9 mmol/L (3.5-5.1); Sodium 136 mmol/L (136-145); Total Protein 6.6 g/dL (6.4-8.2)
[2024-11-16] MEDS: nitroGLYcerin 0.4 MG TAB SL (15:05)
[2024-11-16 15:12] LABS: NT-proBNP 130 pg/mL (<300); Troponin I 4 ng/L (<or=51)
[2024-11-16 15:18] LABS: Glucose >=1000 mg/dL (Negative)
[2024-11-16 15:28] LABS: C & S Indicated? No; RBC Negative HPF (0-2); WBC 0-2 HPF (0-5)
[2024-11-16] MEDS: Normal Saline - Diluent 50 ML VIAL IJ (15:45)
[2024-11-16] MEDS: Omnipaque 350 MG/ML 100 ML BTL 75 ML IJ (15:46)
[2024-11-16] MEDS: MORPHine 4 MG/ML SYR IVP (15:49)
[2024-11-16 16:05] LABS: Troponin I 4 ng/L (<or=51)
[2024-11-16] MEDS: Metoclopramide 10 MG/2 ML VIAL IVP (16:38)
[2024-11-16] MEDS: HYDROmorphone 2 MG/ML SYR 1 MG IVP (16:38)
[2024-11-16] MEDS: AMPICILLIN/SULBACTAM 3 GM in Normal Saline 100 ML IVPB (16:49)
--- NOTE | 2024-11-16 18:24 | W.PM.HP.N ---
Date of service: 11/16/24 Time of Service: 18:24 Assessment and Plan Assessment and plan (1) Aspiration pneumonia: Assessment and plan: - In the setting of nausea and vomiting just prior to arrival - As seen on CT imaging] - Started on Unasyn, will continue - MRSA swab pending, will add vancomycin if positive (2) S/P percutaneous endoscopic gastrostomy (PEG) tube placement: Status: Acute Assessment and plan: - Likely because of aspiration - Apparently patient has multiple episodes of aspiration with aspiration pneumonia - Appreciate palliative consultation to address patient's chronic conditions and CODE STATUS (currently full code) - Appreciate nutrition consultation to assist in restarting tube feeds during hospitalization (3) Insulin dependent type 2 diabetes mellitus: Assessment and plan: - Continue home 10 unit Lantus every afternoon, 10 mg Jardiance through feeding tube daily - SSI (4) Farrell's esophagus: Assessment and plan: - Resulting in severe strictures and PEG tube placement - Continue PPI through PEG tube (5) Bipolar 1 disorder: Assessment and plan: - Continue home quetiapine and valproic acid through PEG tube (6) Atrial flutter: Assessment and plan: - Continue metoprolol succinate 25 mg p.o. twice daily through PEG tube - Patient does not appear to be on anticoagulation (7) Stress-induced cardiomyopathy: Assessment and plan: - Apparently patient had EF as low as 25% though has since recovered - Continue home Entresto, statin both through feeding tube History of Present Illness History of Present Illness Chief Complaint: chest pain Narrative: 64-year-old female who lives at [facility] who presents emergency department with COPD, esophageal stricture resulting in PEG tube placement, IDDM, GERD, Farrell's esophagus, bipolar, stress-induced cardiomyopathy, history of NSTEMI without stents or bypass, presented to the emergency department with complaints of chest pain. Patient states about 30 minutes prior to arrival she developed left-sided chest pain described as sharp and stabbing in nature radiating to her back. She also admits to worsening usual epigastric pain and discomfort that has been associated with nausea and vomiting all within the last hour prior to arrival. Chest pain appears to be pleuritic in nature. Additionally, patient apparently also has as needed oxygen though is usually oxygen dependent. She denies any fevers, lightheadedness, dizziness, shortness of breath. In the emergency department the patient was noted having normal vital signs, normal CBC and CMP. EKG was unremarkable and troponins were negative. However, CT showed evidence of a left-sided pneumonia likely aspiration. Patient was started on Unasyn, emergency room physician paged hospitalist for admission for patient with PEG tube placement and CT findings concerning for left lower lobe pneumonia likely secondary to aspiration. Review of Systems All systems reviewed & are unremarkable except as noted in HPI and below PFSH All Active Problems (Updated 11/16/24 @ 18:47 by Darin Giron MD) S/P percutaneous endoscopic gastrostomy (PEG) tube placement (Acute) Community acquired pneumonia (Acute) Paroxysmal supraventricular tachycardia by electrocardiogram (ECG) (Acute) Acute exacerbation of chronic obstructive pulmonary disease (Acute) Left lower lobe pneumonia (Acute) PEG tube malfunction (Acute) Dilatation of esophagus (Acute) History of total right hip replacement (Acute 03/01/24) As treatment for R femoral neck fracture Medical History COPD (chronic obstructive pulmonary disease) with acute bronchitis Vitamin D deficiency Hypotension HFrEF (heart failure with reduced ejection fraction) Bronchiolitis COPD with acute exacerbation Myocardial injury Acute respiratory failure with hypoxia and hypercarbia Acute on chronic respiratory failure with hypoxia and hypercapnia Pneumonitis Aspiration pneumonia Gastrostomy tube obstruction Lab test positive for detection of COVID-19 virus Acute on chronic respiratory failure with hypoxia Esophageal stricture Chronic systolic (congestive) heart failure Insulin dependent type 2 diabetes mellitus Aspiration pneumonia COVID Pre-op evaluation Abnormal chest xray H/O: pneumonia Stress-induced cardiomyopathy acute onset managed at [facility] 08/30 pressors, EF 25%, has since recovered RH NSTEMI (non-ST elevated myocardial infarction) Per pt. states she did not have a heart attack Acute cardiogenic pulmonary edema Acute metabolic encephalopathy Bilateral pneumonia Acute respiratory failure with hypoxia Hypokalemia Closed fracture of neck of left femur s/p Percutaneous Screw Fixation 08/09/22 Constipation Drug-induced parkinsonism Neuroleptic induced parkinsonism Diabetes mellitus type 2 in obese Tubular adenoma (~06/10/21) Hyperplastic colon polyp (~06/10/21) Erosive esophagitis Esophageal ulcer with bleeding Chronic iron deficiency anemia Farrell's esophagus Chronic diarrhea Black tarry stools Pleural effusion Leukocytosis ETOH abuse Ventral hernia Chronic pancreatitis due to acute alcohol intoxication Alcohol abuse Per pt. states she has never had an issues with any subtances Cholelithiasis Atrial flutter History of pilonidal cyst Diabetes Bipolar 1 disorder Anxiety Depression Surgical History PEG (percutaneous endoscopic gastrostomy) status History of total left hip arthroplasty (01/19/23) Status post hip surgery S/P laparoscopic procedure cyst removed from stomach per patient S/P surgical removal of pilonidal cyst History of esophagogastroduodenoscopy (EGD) (~06/10/21) History of colonoscopy with polypectomy (~06/10/21) History of hysterectomy History of tonsillectomy History of section Family History Father Hypertension Diabetes Heart disease Social History (Updated 08/29/24 @ 17:43 by Moustapha Guerra) Smoking/Tobacco Use Status: Former Tobacco Use Quit Date: 02/07/21 Smoking risk assessment performed?: Yes Alcohol Intake: never Drug use: Never Substance use type: does not use Household members: spouse Housing: long term Number of Children: 2 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 Meds Allergies and Home Medications Allergies Allergy/AdvReac Type Severity Reaction Status Date / Time metformin AdvReac Unknown Diarrhea Verified 11/16/24 15:41 meperidine AdvReac gi upset Verified 11/16/24 15:41 Home Medications ?Medication ?Instructions ?Recorded ?Confirmed ?Type atorvastatin 80 mg tablet 80 mg feeding tube QPM 11/18/22 11/16/24 History empagliflozin 10 mg tablet 10 mg feeding tube DAILY 11/18/22 11/16/24 History (Jardiance) metoprolol succinate 50 mg 25 mg PO BID 11/18/22 11/16/24 History tablet,extended release 24 hr sacubitril 24 mg-valsartan 26 mg 1 tab feeding tube DAILY 11/18/22 11/16/24 History tablet (Entresto) valproic acid (as sodium salt) 250 300 mg feeding tube TID 11/18/22 11/16/24 History mg/5 mL oral solution bupropion HCl 100 mg tablet 300 mg PO DAILY 12/16/22 11/16/24 History ferrous sulfate 300 mg (60 mg 300 mg feeding tube .QOD 01/31/23 11/16/24 History iron)/5 mL oral liquid Held on 11/16/24. Instructions: Pt Stopped/Never Started insulin NPH isoph U-100 human 100 See Rx Instructions .Route 02/28/23 11/16/24 Rx unit/mL (3 mL) subcutaneous pen .COMPLEX #0 mL (Humulin N NPH U-100 Insulin KwikPen) Held on 11/16/24. Instructions: not on med list from [facility] ibuprofen 100 mg/5 mL oral 600 mg PO Q8H PRN 04/04/23 11/16/24 History suspension Held on 11/16/24. Instructions: Not on pts med list from [facility] nystatin 100,000 unit/gram topical 1 applic topical TID PRN 05/03/23 11/16/24 History cream pantoprazole 40 mg granules 40 mg G-tube DAILY 05/03/23 11/16/24 History delayed-release for susp in packet insulin glargine 100 unit/mL (3 10 unit subcut QPM 05/04/23 11/16/24 History mL) subcutaneous pen (Lantus Solostar U-100 Insulin) melatonin 3 mg tablet 9 mg feeding tube HS 05/04/23 11/16/24 History ondansetron HCl 4 mg tablet 4 mg feeding tube Q6H PRN 05/08/23 11/16/24 History aspirin 81 mg chewable tablet 81 mg feeding tube DAILY #30 tabs 07/05/23 11/16/24 Rx Held on 11/16/24. Instructions: not on med list from [facility] guaifenesin 200 mg/5 mL oral liquid 200 mg (5 mL) feeding tube Q4H PRN 07/05/23 11/16/24 Rx Held on 11/16/24. #118 mL Instructions: Not on med list from [facility] duloxetine 20 mg capsule,delayed 20 mg PO HS 01/24/24 11/16/24 History release (Cymbalta) duloxetine 60 mg capsule,delayed 60 mg PO DAILY 01/24/24 11/16/24 History release (Cymbalta) nystatin 100,000 unit/gram topical 1 applic topical BID 04/19/24 11/16/24 History ointment inhalational spacing device (Space #1 ea 04/21/24 11/16/24 Rx Chamber) acetaminophen 500 mg/15 mL oral 1,000 mg feeding tube Q8H PRN 08/29/24 11/16/24 History liquid albuterol sulfate 90 mcg/actuation 2 puff inhalation Q4H PRN 08/29/24 11/16/24 History aerosol inhaler bisacodyl 10 mg rectal suppository 10 mg FL DAILY PRN 08/29/24 11/16/24 History folic acid 1 mg tablet 1 mg feeding tube DAILY 08/29/24 11/16/24 History quetiapine 100 mg tablet 300 mg feeding tube DAILY 08/29/24 11/16/24 History Exam Narrative Exam Narrative: Fatigued but chronically ill-appearing female, appears older than stated age, laying in bed in no acute distress, awake, alert, oriented to person and place, heart regular rate rhythm, lungs with mild coarse breath sounds in left lower lobe, abdomen soft, nontender, nondistended Results Labs 11/16/24 14:25 11/16/24 14:25 Labs: Laboratory Results - last 24 hr 11/16/24 11/16/24 11/16/24 14:25 14:43 15:25 WBC 11.01 H RBC 5.27 H Hgb 14.8 Hct 45.4 MCV 86 MCH 28.1 MCHC 32.6 RDW 14.6 Plt Count 104 L MPV 12.8 H Immature Gran % 0.6 Neutrophils % 86.6 Lymphocytes % 6.3 Monocytes % 5.1 Eosinophils % 1.1 Basophils % 0.3 Nucleated RBC % 0.0 Absolute Neutrophils 9.53 H Absolute Lymphocytes 0.69 L Absolute Monocytes 0.56 Absolute Eosinophils 0.12 Absolute Basophils 0.03 PT 9.4 INR 0.9 APTT 22.0 Sodium 136 Potassium 4.9 Chloride 101 Carbon Dioxide 25.4 Anion Gap 9.6 BUN 19 H Creatinine 0.8 Est GFR (CKD-EPI 2020) 82.23 Glucose 360 H Calcium 9.4 Total Bilirubin 0.4 AST 18 ALT 23 Alkaline Phosphatase 151 H Troponin I 4 4 NT-Pro-B Natriuret Pep 130 Total Protein 6.6 Albumin 3.0 L Lipase 19 Urine Color Yellow Urine Clarity Clear Urine pH 7.5 Ur Specific [place] 1.015 Urine Protein Negative Urine Ketones Trace H Urine Blood Negative Urine Nitrite Negative Urine Bilirubin Negative Urine Urobilinogen 1.0 H Ur Leukocyte Esterase Negative Urine RBC Negative Urine WBC 0-2 Ur Epithelial Cells Moderate Urine Crystals Negative Urine Bacteria Rare Urine Casts Negative Urine Mucus Negative Ur Culture Indicated? No Urine Glucose >=1000 H Last Vital Signs Temp 98.0 F 11/16/24 14:04 Pulse 76 11/16/24 18:16 Resp 17 11/16/24 18:16 BP 108/85 11/16/24 18:16 Pulse Ox 92 11/16/24 18:16 Time Spent Time spent with Patient: >75 minutes Time was spent: preparing to see the patient(eg.review tests), obtaining and/or reviewing separately otained hiistory, ordering medications,tests, procedures, referring, communicating with other health ambulatory care nurse, indepentently interpreting results, counseling the patient and care coordination
--- NOTE | 2024-11-16 20:45 | W.PC.ACHO ---
Registration Status: REG ER Primary Language: Preferred Language: Hebrew ED Information & Data Chief Complaint Chest Pain 11/16/24 14:16 Triage Note BIBA from [facility] d/t complaint 11/16/24 14:04 of sudden onset of 02/16 pain in her chest that radiates to the back, Reports this gets worse with breathing. Has vomited as well. Reports pain is stabbing sensation. Specialized diet, has a gtube, only takes pudding and coffee by mouth. Medical / Surgical History (Last Reviewed 08/29/24 @ 17:43 by Moustapha Guerra) COPD (chronic obstructive pulmonary disease) with acute bronchitis Insulin dependent type 2 diabetes mellitus HFrEF (heart failure with reduced ejection fraction) Pre-op evaluation Abnormal chest xray H/O: pneumonia Drug-induced parkinsonism Neuroleptic induced parkinsonism Tubular adenoma (~06/10/21) Hyperplastic colon polyp (~06/10/21) Erosive esophagitis Esophageal ulcer with bleeding Farrell's esophagus Chronic diarrhea Black tarry stools Pleural effusion Leukocytosis Ventral hernia Cholelithiasis Atrial flutter Diabetes Bipolar 1 disorder Depression COVID Acute respiratory failure with hypoxia Acute on chronic respiratory failure with hypoxia Lab test positive for detection of COVID-19 virus Gastrostomy tube obstruction Aspiration pneumonia Pneumonitis Acute respiratory failure with hypoxia and hypercarbia Myocardial injury COPD with acute exacerbation NSTEMI (non-ST elevated myocardial infarction) Bronchiolitis Acute on chronic respiratory failure with hypoxia and hypercapnia Hypotension Vitamin D deficiency Esophageal stricture Chronic systolic (congestive) heart failure Aspiration pneumonia Stress-induced cardiomyopathy Acute cardiogenic pulmonary edema Acute metabolic encephalopathy Bilateral pneumonia Hypokalemia Closed fracture of neck of left femur Constipation Diabetes mellitus type 2 in obese Chronic iron deficiency anemia ETOH abuse Chronic pancreatitis due to acute alcohol intoxication Alcohol abuse History of pilonidal cyst Anxiety (Last Reviewed 08/29/24 @ 17:43 by Moustapha Guerra) PEG (percutaneous endoscopic gastrostomy) status Status post hip surgery History of total left hip arthroplasty (01/19/23) S/P laparoscopic procedure S/P surgical removal of pilonidal cyst History of esophagogastroduodenoscopy (EGD) (~06/10/21) History of colonoscopy with polypectomy (~06/10/21) History of hysterectomy History of tonsillectomy History of section Most Recent Vital Signs Temperature 36.7 C 11/16/24 14:04 Temperature Source Oral 11/16/24 14:04 Pulse 76 11/16/24 18:16 Pulse 79 11/16/24 18:16 Respiratory Rate 17 11/16/24 18:16 Respiratory Effort Normal 11/16/24 14:37 Respiratory Depth Normal 11/16/24 14:37 Respiratory Pattern Normal 11/16/24 14:37 Blood Pressure 108/85 11/16/24 18:16 Blood Pressure Mean 92 11/16/24 18:16 Blood Pressure Position Supine 11/16/24 14:04 Pulse Oximetry 92 11/16/24 18:16 Oxygen Delivery Method Room Air 11/16/24 14:04 Oxygen Flow Rate 0 11/16/24 14:04 Pain Level 9 11/16/24 16:38 Allergies metformin Adverse Reaction (Unknown, Verified 11/16/24 15:41) Diarrhea meperidine Adverse Reaction (Verified 11/16/24 15:41) gi upset Active Medications Generic Name Dose Route Start Last Admin Trade Name Freq PRN Reason Stop Dose Admin Iohexol 75 ml 11/16/24 16:00 11/16/24 15:46 Omnipaque 350 Mg/Ml 100 Ml Btl IJ 12/16/24 23:59 75 ml DIRECTED LAZARUS Administration Ondansetron HCl 4 mg 11/16/24 19:32 11/16/24 19:38 Ondansetron 4 Mg/2 Ml Vial IVP 4 mg Q6H PRN Administration Sodium Chloride 50 ml 11/16/24 15:45 11/16/24 15:45 Normal Saline - Diluent 50 Ml Vial IJ 50 ml .FOR DI USE LAZARUS Administration IV IV Catheter Type [Left Forearm Saline Lock ] IV Catheter Gauge [Left 18 Forearm] Diagnostics 11/16/24 11/16/24 11/16/24 Range/Units 17:09 15:25 14:43 WBC (4.4-10.8) 10^3/uL RBC (3.93-5.22) 10^6/uL Hgb (11.2-15.7) g/dL Hct (36.0-46.0) % MCV (80-95) fL MCH (27.0-33.0) pg MCHC (32.0-36.0) % RDW (11.7-14.6) % Plt Count (130-400) 10^3/uL MPV (8.0-11.0) fL Immature Gran % % Neutrophils % % Lymphocytes % % Monocytes % % Eosinophils % % Basophils % % Nucleated RBC % (0.0-0.3) % Absolute Neutrophils (1.2-6.7) 10^3/uL Absolute Lymphocytes (1.2-3.4) 10^3/uL Absolute Monocytes (0.1-0.8) 10^3/uL Absolute Eosinophils (0.0-0.7) 10^3/uL Absolute Basophils (0.0-0.2) 10^3/uL PT (9.1-11.1) sec INR (0.9-1.1) APTT (20.6-30.2) sec Sodium (136-145) mmol/L Potassium (3.5-5.1) mmol/L Chloride (98-107) mmol/L Carbon Dioxide (21.0-32.0) mmol/L Anion Gap (3-11) mmol/L BUN (7-18) mg/dL Creatinine (0.55-1.02) mg/dL Est GFR (CKD-EPI 2020) (mL/min/1.73m2) Glucose (74-106) mg/dL Calcium (8.5-10.1) mg/dL Total Bilirubin (0.2-1.0) mg/dL AST (15-37) U/L ALT (14-59) U/L Alkaline Phosphatase (46-116) U/L Troponin I Cancelled 4 (<or=51) ng/L NT-Pro-B Natriuret Pep (<300) pg/mL Total Protein (6.4-8.2) g/dL Albumin (3.4-5.0) g/dL Lipase (<78) U/L Urine Color Yellow (Yellow) Urine Clarity Clear (Clear) Urine pH 7.5 (5-8) Ur Specific [place] 1.015 (1.005-1.025) Urine Protein Negative (Neg-Trace) mg/dL Urine Ketones Trace H (Negative) mg/dL Urine Blood Negative (Negative) Urine Nitrite Negative (Negative) Urine Bilirubin Negative (Negative) Urine Urobilinogen 1.0 H (Up to 0.2) mg/dL Ur Leukocyte Esterase Negative (Negative) Urine RBC Negative (0-2) HPF Urine WBC 0-2 (0-5) HPF Ur Epithelial Cells Moderate (Negative) HPF Urine Crystals Negative (Negative) HPF Urine Bacteria Rare (Negative) HPF Urine Casts Negative (Negative) LPF Urine Mucus Negative (Negative) Ur Culture Indicated? No Urine Glucose >=1000 H (Negative) mg/dL 11/16/24 Range/Units 14:25 WBC 11.01 H (4.4-10.8) 10^3/uL RBC 5.27 H (3.93-5.22) 10^6/uL Hgb 14.8 (11.2-15.7) g/dL Hct 45.4 (36.0-46.0) % MCV 86 (80-95) fL MCH 28.1 (27.0-33.0) pg MCHC 32.6 (32.0-36.0) % RDW 14.6 (11.7-14.6) % Plt Count 104 L (130-400) 10^3/uL MPV 12.8 H (8.0-11.0) fL Immature Gran % 0.6 % Neutrophils % 86.6 % Lymphocytes % 6.3 % Monocytes % 5.1 % Eosinophils % 1.1 % Basophils % 0.3 % Nucleated RBC % 0.0 (0.0-0.3) % Absolute Neutrophils 9.53 H (1.2-6.7) 10^3/uL Absolute Lymphocytes 0.69 L (1.2-3.4) 10^3/uL Absolute Monocytes 0.56 (0.1-0.8) 10^3/uL Absolute Eosinophils 0.12 (0.0-0.7) 10^3/uL Absolute Basophils 0.03 (0.0-0.2) 10^3/uL PT 9.4 (9.1-11.1) sec INR 0.9 (0.9-1.1) APTT 22.0 (20.6-30.2) sec Sodium 136 (136-145) mmol/L Potassium 4.9 (3.5-5.1) mmol/L Chloride 101 (98-107) mmol/L Carbon Dioxide 25.4 (21.0-32.0) mmol/L Anion Gap 9.6 (3-11) mmol/L BUN 19 H (7-18) mg/dL Creatinine 0.8 (0.55-1.02) mg/dL Est GFR (CKD-EPI 2020) 82.23 (mL/min/1.73m2) Glucose 360 H (74-106) mg/dL Calcium 9.4 (8.5-10.1) mg/dL Total Bilirubin 0.4 (0.2-1.0) mg/dL AST 18 (15-37) U/L ALT 23 (14-59) U/L Alkaline Phosphatase 151 H (46-116) U/L Troponin I 4 (<or=51) ng/L NT-Pro-B Natriuret Pep 130 (<300) pg/mL Total Protein 6.6 (6.4-8.2) g/dL Albumin 3.0 L (3.4-5.0) g/dL Lipase 19 (<78) U/L Urine Color (Yellow) Urine Clarity (Clear) Urine pH (5-8) Ur Specific [place] (1.005-1.025) Urine Protein (Neg-Trace) mg/dL Urine Ketones (Negative) mg/dL Urine Blood (Negative) Urine Nitrite (Negative) Urine Bilirubin (Negative) Urine Urobilinogen (Up to 0.2) mg/dL Ur Leukocyte Esterase (Negative) Urine RBC (0-2) HPF Urine WBC (0-5) HPF Ur Epithelial Cells (Negative) HPF Urine Crystals (Negative) HPF Urine Bacteria (Negative) HPF Urine Casts (Negative) LPF Urine Mucus (Negative) Ur Culture Indicated? Urine Glucose (Negative) mg/dL [id number] Documentation Fingerstick Glucose Start: 11/16/24 18:50 Freq: .Q6H Status: Active Protocol: Activity Type Activity Date Activity User E-sign Co-sign Detail Recorded Client Recorded Date Recorded By Document 11/16/24 19:03 HELDER DAEMON(3) [id number] 11/16/24 19:04 BKG DAEMON(4) Intake and Output - 24 Hour Total 11/16/24 13:59 thru 11/16/24 17:53 Intake Total 600 Output Total 300 Balance 300 Weight 77.519 kg Intake: IV 600 Output: Urine 300 Falls Risk Assessment History of Falls No History 11/16/24 18:05 Contributing Factors Unstable,Impairments, 11/16/24 18:05 Incontinence,Medications Ambulatory Aids Uses ambulatory device + 11/16/24 18:05 Tubes/Lines With any additional score 11/16/24 18:05 Gait Evaluation W/any additional score 11/16/24 18:05 Cognition No cognitive impairment 11/16/24 18:05 Fall Total Score 82 11/16/24 18:05 Level of Risk Maximum Risk 11/16/24 18:05 Problems (Last Reviewed 08/29/24 @ 17:43 by Moustapha Guerra) S/P percutaneous endoscopic gastrostomy (PEG) tube placement (Acute) v v v v v v v v v Sending and/or Receiving Nurses: Please use comment section below to note any information pertinent to the patient hand-off not included above. Information / Comments: No further questions. Report received from:Rory Gamble RN
[2024-11-16] MEDS: Insulin Aspart 300 UNITS/3 ML PEN SC (22:38)
[2024-11-16] MEDS: Normal Saline Flush 10 ML SYR IVP (22:39)
[2024-11-16 23:23] LABS: MRSA PCR Negative (Negative)
[2024-11-16] MEDS: LORazepam 20 MG/10 ML VIAL IVP (23:33)
[2024-11-16] MEDS: Insulin Glargine 300 UNITS/3 ML PEN 10 UNITS SC (23:35)
[2024-11-17] VITALS (11 sets, daily range): BP systolic 65–117; BP diastolic 37–68; PULSE 74–88; RESP 16–20; TEMP 35.7–37.5; O2SAT 89–98
[2024-11-17] MEDS: DULoxetine 20 MG CAP PO (00:16)
[2024-11-17] MEDS: Acetaminophen 325 MG TAB 650 MG PO ×2 (00:16→08:35)
[2024-11-17] MEDS: Melatonin 3 MG TAB 9 MG PO ×2 (00:17→21:19)
[2024-11-17] MEDS: AMPICILLIN/SULBACTAM 3 GM in Normal Saline 100 ML IVPB ×4 (00:51→18:00)
[2024-11-17] MEDS: Insulin Aspart 300 UNITS/3 ML PEN SC (04:02)
[2024-11-17 07:29] LABS: HCT 42.8 % (36.0-46.0); HGB 13.8 g/dL (11.2-15.7); MCH 28.5 pg (27.0-33.0); MCHC 32.2 % (32.0-36.0); MCV 88 fL (80-95); MPV 12.1 fL (8.0-11.0); Platelet Count 113 10^3/uL (130-400); RBC 4.84 10^6/uL (3.93-5.22); RDW 15.0 % (11.7-14.6); RDW-SD 48.2 fL; WBC 14.79 10^3/uL (4.4-10.8)
[2024-11-17 07:46] LABS: Anion Gap 8.5 mmol/L (3-11); BUN 19 mg/dL (7-18); CO2 31.5 mmol/L (21.0-32.0); Calcium 9.6 mg/dL (8.5-10.1); Chloride 103 mmol/L (98-107); Estimated GFR 71.39 (mL/min/1.73m2); Glucose 123 mg/dL (74-106); Magnesium 2.0 mg/dL (1.8-2.4); Potassium 4.2 mmol/L (3.5-5.1); Sodium 143 mmol/L (136-145)
--- NOTE | 2024-11-17 08:00 | RT.EKG_ITS ---
APPROVED REPORT Exam: Resting ECG Reason for Exam: chest pain Patient Location: I HR:78 bpm ECG Measurements Heart Rate 78 AXIS MI 173 P 46 QRSd 84 QRS 48 QT 350 T 13 QTc 399 Conclusion Sinus rhythm...normal P axis, V-rate 50- 99 Low voltage, extremity and precordial leads...extremity<0.5mV, precordial<1.0mV
[2024-11-17] MEDS: Empaglifozin 10 MG TAB PO (08:34)
[2024-11-17] MEDS: QUEtiapine 100 MG TAB 300 MG PO (08:34)
[2024-11-17] MEDS: Ondansetron O.D.T. 4 MG TABEF JT (08:34)
[2024-11-17] MEDS: Enoxaparin 40 MG/0.4 ML SYR SC (08:37)
[2024-11-17 09:03] LABS: Troponin I < 4 ng/L (<or=51)
--- NOTE | 2024-11-17 10:21 | W.NUTCONSULT ---
Date of service: 11/17/24 Time of Service: 10:21 Nutritional Consult ASSESSMENT: 64yo female currently [facility], admitted after experiencing CP with episode of vomiting prior to arrival contributing to aspiration PNA. Pt with PEG-tube placement and known to me from prior admissions. Jennifer sleeping on visit today - did not wake as staff reports patient not too happy with current NPO situation. Prior admissions and at baseline, Jennifer does take limited foods and beverages po - has hx of Farrell's esophagus which led to strictures and multiple dilations. Spoke with staff ([facility]) today on phone at rehab and states current regimen is 12 hour nocturnal feed (8pm-8am) with Nutren1.5 formula at 58mL/hour. She was also receiving meal trays with minimal modified foods and Boost ONS BID. Also was ordered for 60mL free water flushes [id number], but nurse states tube frequently clogged in AM. Jennifer's weight has trended on the increase over the last 6 months from approx 5kg wt gain - current BMI congruent with stage I obesity. With above regimen, energy intake without including TID meal trays estimated to be 1524kcals, 67g protein and 1011mL fluid. Current estimated energy needs: 1436kcals, 68g protein (1.5g/kg IBW), and 1436mL fluid (1mL per required kcal) INTERVENTION: Without taking any po fluids/solids due to current precautionary npo status, would suggest: Jevity 1.5 formula fed continuously per baseline regimen from 20:00-08:00 at goal rate of 80mL/hour. This would supply 1440kcals, 61g protein, and 729mL fluid Recommend 30-60mL free water flushes with any meds administered via G-tube and ad laura IV fluids for remainder of fluid needs (282mL). MONITORING AND EVALUATION: Will monitor advancement with any po intake, weight, nutrition-related labs, and adjust enteral feeding recommendations as needed. Time Spent in Nutritional Counseling and Treatment: 0
--- NOTE | 2024-11-17 10:53 | W.PALLCONSUL ---
Date of service: 11/17/24 Time of Service: 10:35 History of Present Illness Narrative: First attempt to see patient, her BP was 60s/40s, she appears dry and falling asleep. Will come back. Second attempt to visit patient, she was too sleepy to open her eyes and engage in the visit. Third attempt, she still appeared to be sleepy and she remains hypotensive with BP of 70/37 but she was alert enough to engage in a visit. Jennifer is currently admitted to [facility] for aspiration PNA, s/p N/V. She has a PEG tube in place due to Covington's esophagus with strictures. She is a resident of [facility] with her , Campos. She plans to be a long-term SNF resident. She does not think she will ever be able to live outside of a chcf. She would like to move to a facility closer to her sons, Geronimo and Shiva. Geronimo goes to [facility] and Shiva is selling cars in [facility]. Jennifer was seen by Dr. Saenz, Palliative in 04/2024. At that time, her stated that she would want to be a FULL CODE. Reviewed CODE STATUS today, she states she does not want anyone to work too hard on her. Discussed that the decision to change CODE STATUS should be based on her wishes. She would like to think about this and discuss CODE status with her , she does not want to make changes today. Reviewed that her spoke with Palliative at her last visit because she did not appear to have capacity at that time. Discussed the role of HCA. She states she would want her , Jamie Irving to make decisions for her. She states she would want her son, Geronimo Irving to be her second HCA and she would want her son, Shiva to be consulted as well. She declined completing HCA form because she wants to discuss with her family and make sure they agree with her plans. She is agreeable to Palliative f/u at the rehab, will ask the office to put her on the schedule. 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 Assessment and Plan Assessment and plan (1) Aspiration pneumonia: Assessment and plan: - In the setting of nausea and vomiting just prior to arrival - on Unasyn She is weak and fatigued. She usually walks around at the rehab but she has been needing assistance getting OOB here. (2) S/P percutaneous endoscopic gastrostomy (PEG) tube placement: Status: Acute Assessment and plan: - R/t covington's esophagus with esophageal strictures per pt. (3) Insulin dependent type 2 diabetes mellitus: (4) Covington's esophagus: Assessment and plan: - Resulting in severe strictures and PEG tube placement - On PPI through PEG tube (5) Bipolar 1 disorder: Assessment and plan: - On home quetiapine and valproic acid through PEG tube (6) Atrial flutter: (7) Stress-induced cardiomyopathy: Assessment and plan: - Apparently patient had EF as low as 25% though has since recovered (8) Palliative care encounter: Status: Acute Assessment and plan: She has been seen in the past by Dr. Saenz for Palliative consult while hospitalized. She is interested in f/u at the rehab, will ask the office to schedule. (9) Advanced care planning/counseling discussion: Status: Acute Assessment and plan: She is a FULL CODE. Reviewed CODE STATUS, she wishes to remain a FULL CODE for now. Discussed CODE STATUS extensively. She states she does not want anyone working too hard on her. She wants to discuss with her family. She does not have HCA paperwork. She is agreeable to having her be her first HCA and her son, Geronimo Irving to be her second. She also wants her son, Shiva to be consulted. She declined completing HCA forms today because she wants to discuss with her family and make sure they agree. She lives at the rehab with her and feels she will need to stay in SNF long-term. She would like to be moved closer to her her sons who are in [facility] and [place]. She is interested in Palliative f/u, will ask the office to set up for a visit at the rehab. Review of Systems Narrative: Feeling fatigued and weak. She has been requiring assistance here but usually walks around alone at the rehab. She denies SOB. PFSH All Active Problems Advanced care planning/counseling discussion (Acute) Palliative care encounter (Acute) S/P percutaneous endoscopic gastrostomy (PEG) tube placement (Acute) Community acquired pneumonia (Acute) Paroxysmal supraventricular tachycardia by electrocardiogram (ECG) (Acute) Acute exacerbation of chronic obstructive pulmonary disease (Acute) Left lower lobe pneumonia (Acute) PEG tube malfunction (Acute) Dilatation of esophagus (Acute) History of total right hip replacement (Acute 03/01/24) As treatment for R femoral neck fracture Medical History COPD (chronic obstructive pulmonary disease) with acute bronchitis Insulin dependent type 2 diabetes mellitus HFrEF (heart failure with reduced ejection fraction) Pre-op evaluation Abnormal chest xray H/O: pneumonia Drug-induced parkinsonism Neuroleptic induced parkinsonism Tubular adenoma (~06/10/21) Hyperplastic colon polyp (~06/10/21) Erosive esophagitis Esophageal ulcer with bleeding Covington's esophagus Chronic diarrhea Black tarry stools Pleural effusion Leukocytosis Ventral hernia Cholelithiasis Atrial flutter Diabetes Bipolar 1 disorder Depression COVID Acute respiratory failure with hypoxia Acute on chronic respiratory failure with hypoxia Lab test positive for detection of COVID-19 virus Gastrostomy tube obstruction Aspiration pneumonia Pneumonitis Acute respiratory failure with hypoxia and hypercarbia Myocardial injury COPD with acute exacerbation NSTEMI (non-ST elevated myocardial infarction) Per pt. states she did not have a heart attack Bronchiolitis Acute on chronic respiratory failure with hypoxia and hypercapnia Hypotension Vitamin D deficiency Esophageal stricture Chronic systolic (congestive) heart failure Aspiration pneumonia Stress-induced cardiomyopathy acute [place] [facility] [place] pressors, EF 25%, has since recovered RH Acute cardiogenic pulmonary edema Acute metabolic encephalopathy Bilateral pneumonia Hypokalemia Closed fracture of neck of left femur s/p Percutaneous Screw Fixation 08/09/22 Constipation Diabetes mellitus type 2 in obese Chronic iron deficiency anemia ETOH abuse Chronic pancreatitis due to acute alcohol intoxication Alcohol abuse Per pt. states she has never had an issues with any subtances History of pilonidal cyst Anxiety Surgical History PEG (percutaneous endoscopic gastrostomy) status Status post hip surgery History of total left hip arthroplasty (01/19/23) S/P laparoscopic procedure cyst removed from stomach per patient S/P surgical removal of pilonidal cyst History of esophagogastroduodenoscopy (EGD) (~06/10/21) History of colonoscopy with polypectomy (~06/10/21) History of hysterectomy History of tonsillectomy History of section Family History Father Hypertension Diabetes Heart disease Social History Smoking/Tobacco Use Status: Former Tobacco Use Quit Date: 02/07/21 Smoking risk assessment performed?: Yes Alcohol Intake: never Drug use: Never Substance use type: does not use Household members: spouse Housing: chcf Number of Children: 2 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 She does not appear to be in distress. HEENT: normocephalic, atraumatic, EOMI, MM slightly dry, poor dentition. Neck: supple Respiratory: respirations appear even and unlabored, no coughing during the visit. Ext: no edema. Results Last Vital Signs Temp 36.4 C L 11/17/24 07:38 Pulse 79 11/17/24 07:38 Resp 16 11/17/24 07:38 BP 103/58 L 11/17/24 07:38 Pulse Ox 95 11/17/24 07:38 Labs 11/17/24 06:35 11/17/24 06:35 Labs: Laboratory Results - last 24 hr 11/16/24 11/16/24 11/16/24 14:25 14:43 15:25 WBC 11.01 H RBC 5.27 H Hgb 14.8 Hct 45.4 MCV 86 MCH 28.1 MCHC 32.6 RDW 14.6 Plt Count 104 L MPV 12.8 H Immature Gran % 0.6 Neutrophils % 86.6 Lymphocytes % 6.3 Monocytes % 5.1 Eosinophils % 1.1 Basophils % 0.3 Nucleated RBC % 0.0 Absolute Neutrophils 9.53 H Absolute Lymphocytes 0.69 L Absolute Monocytes 0.56 Absolute Eosinophils 0.12 Absolute Basophils 0.03 PT 9.4 INR 0.9 APTT 22.0 Sodium 136 Potassium 4.9 Chloride 101 Carbon Dioxide 25.4 Anion Gap 9.6 BUN 19 H Creatinine 0.8 Est GFR (CKD-EPI 2020) 82.23 Glucose 360 H Calcium 9.4 Magnesium Total Bilirubin 0.4 AST 18 ALT 23 Alkaline Phosphatase 151 H Troponin I 4 4 NT-Pro-B Natriuret Pep 130 Total Protein 6.6 Albumin 3.0 L Lipase 19 Urine Color Yellow Urine Clarity Clear Urine pH 7.5 Ur Specific [place] 1.015 Urine Protein Negative Urine Ketones Trace H Urine Blood Negative Urine Nitrite Negative Urine Bilirubin Negative Urine Urobilinogen 1.0 H Ur Leukocyte Esterase Negative Urine RBC Negative Urine WBC 0-2 Ur Epithelial Cells Moderate Urine Crystals Negative Urine Bacteria Rare Urine Casts Negative Urine Mucus Negative Ur Culture Indicated? No Urine Glucose >=1000 H MRSA (TEM-PCR) 11/16/24 11/16/24 11/17/24 17:09 18:35 06:35 WBC 14.79 H RBC 4.84 Hgb 13.8 Hct 42.8 MCV 88 MCH 28.5 MCHC 32.2 RDW 15.0 H Plt Count 113 L MPV 12.1 H Immature Gran % Neutrophils % Lymphocytes % Monocytes % Eosinophils % Basophils % Nucleated RBC % Absolute Neutrophils Absolute Lymphocytes Absolute Monocytes Absolute Eosinophils Absolute Basophils PT INR APTT Sodium 143 Potassium 4.2 Chloride 103 Carbon Dioxide 31.5 Anion Gap 8.5 BUN 19 H Creatinine 0.9 Est GFR (CKD-EPI 2020) 71.39 Glucose 123 H Calcium 9.6 Magnesium 2.0 Total Bilirubin AST ALT Alkaline Phosphatase Troponin I Cancelled NT-Pro-B Natriuret Pep Total Protein Albumin Lipase Urine Color Urine Clarity Urine pH Ur Specific [place] Urine Protein Urine Ketones Urine Blood Urine Nitrite Urine Bilirubin Urine Urobilinogen Ur Leukocyte Esterase Urine RBC Urine WBC Ur Epithelial Cells Urine Crystals Urine Bacteria Urine Casts Urine Mucus Ur Culture Indicated? Urine Glucose MRSA (TEM-PCR) Negative 11/17/24 08:40 WBC RBC Hgb Hct MCV MCH MCHC RDW Plt Count MPV Immature Gran % Neutrophils % Lymphocytes % Monocytes % Eosinophils % Basophils % Nucleated RBC % Absolute Neutrophils Absolute Lymphocytes Absolute Monocytes Absolute Eosinophils Absolute Basophils PT INR APTT Sodium Potassium Chloride Carbon Dioxide Anion Gap BUN Creatinine Est GFR (CKD-EPI 2020) Glucose Calcium Magnesium Total Bilirubin AST ALT Alkaline Phosphatase Troponin I < 4 NT-Pro-B Natriuret Pep Total Protein Albumin Lipase Urine Color Urine Clarity Urine pH Ur Specific [place] Urine Protein Urine Ketones Urine Blood Urine Nitrite Urine Bilirubin Urine Urobilinogen Ur Leukocyte Esterase Urine RBC Urine WBC Ur Epithelial Cells Urine Crystals Urine Bacteria Urine Casts Urine Mucus Ur Culture Indicated? Urine Glucose MRSA (TEM-PCR) Time Spent Time Spent with Patient Time Spent(min): 86
[2024-11-17] MEDS: Normal Saline Flush 10 ML SYR IVP ×2 (11:34→21:22)
[2024-11-17] MEDS: Lactated Ringers 1,000 ML 125 ML IV ×2 (11:48→23:22)
--- NOTE | 2024-11-17 14:57 | PGE_ITS ---
Date of Service Date of service: 11/17/24 Time of Service: 08:00 Assessment and Plan Assessment and plan (1) Aspiration pneumonia: Assessment and plan: Nausea and vomiting prior to arrival, infiltrates on CT She is not dependent on the PEG for all intake, she does eat and drink during the day Continue unasyn Started observed feeds, nocturnal tube feeds (2) S/P percutaneous endoscopic gastrostomy (PEG) tube placement: Status: Acute Assessment and plan: Multiple previous aspiration episodes, likely initially due to esophageal strictures Appreciate palliative and nutrition support (3) Insulin dependent type 2 diabetes mellitus: Assessment and plan: - Continue home 10 unit Lantus every afternoon, 10 mg Jardiance through feeding tube daily - SSI (4) Farrell's esophagus: Assessment and plan: - Resulting in severe strictures and PEG tube placement - Continue PPI through PEG tube (5) Bipolar 1 disorder: Assessment and plan: - Continue home quetiapine and valproic acid through PEG tube (6) Atrial flutter: Assessment and plan: - Continue metoprolol succinate 25 mg p.o. twice daily through PEG tube - Patient does not appear to be on anticoagulation (7) Stress-induced cardiomyopathy: Assessment and plan: - Apparently patient had EF as low as 25% though has since recovered - Continue home Entresto, statin both through feeding tube Exam Narrative Exam Narrative: General: This is a chronically ill-appearing woman in no acute distress HEENT: normocephalic, atraumatic, poor dentition CV: RRR Resp: CTAB Abd: PEG site c/d/i Neuro: Awake, alert, no focal deficits Objective Last Vital Signs Temp 37.5 C 11/17/24 14:45 Pulse 74 11/17/24 14:45 Resp 16 11/17/24 14:45 BP 70/37 L 11/17/24 14:45 Pulse Ox 89 L 11/17/24 14:45 Laboratory Results - last 24 hr 11/16/24 11/16/24 11/16/24 14:25 14:43 15:25 WBC RBC Hgb Hct MCV MCH MCHC RDW Plt Count MPV Sodium 136 Potassium 4.9 Chloride 101 Carbon Dioxide 25.4 Anion Gap 9.6 BUN 19 H Creatinine 0.8 Est GFR (CKD-EPI 2020) 82.23 Glucose 360 H Calcium 9.4 Magnesium Total Bilirubin 0.4 AST 18 ALT 23 Alkaline Phosphatase 151 H Troponin I 4 4 NT-Pro-B Natriuret Pep 130 Total Protein 6.6 Albumin 3.0 L Lipase 19 Urine Color Yellow Urine Clarity Clear Urine pH 7.5 Ur Specific [place] 1.015 Urine Protein Negative Urine Ketones Trace H Urine Blood Negative Urine Nitrite Negative Urine Bilirubin Negative Urine Urobilinogen 1.0 H Ur Leukocyte Esterase Negative Urine RBC Negative Urine WBC 0-2 Ur Epithelial Cells Moderate Urine Crystals Negative Urine Bacteria Rare Urine Casts Negative Urine Mucus Negative Ur Culture Indicated? No Urine Glucose >=1000 H MRSA (TEM-PCR) 11/16/24 11/16/24 11/17/24 17:09 18:35 06:35 WBC 14.79 H RBC 4.84 Hgb 13.8 Hct 42.8 MCV 88 MCH 28.5 MCHC 32.2 RDW 15.0 H Plt Count 113 L MPV 12.1 H Sodium 143 Potassium 4.2 Chloride 103 Carbon Dioxide 31.5 Anion Gap 8.5 BUN 19 H Creatinine 0.9 Est GFR (CKD-EPI 2020) 71.39 Glucose 123 H Calcium 9.6 Magnesium 2.0 Total Bilirubin AST ALT Alkaline Phosphatase Troponin I Cancelled NT-Pro-B Natriuret Pep Total Protein Albumin Lipase Urine Color Urine Clarity Urine pH Ur Specific [place] Urine Protein Urine Ketones Urine Blood Urine Nitrite Urine Bilirubin Urine Urobilinogen Ur Leukocyte Esterase Urine RBC Urine WBC Ur Epithelial Cells Urine Crystals Urine Bacteria Urine Casts Urine Mucus Ur Culture Indicated? Urine Glucose MRSA (TEM-PCR) Negative 11/17/24 08:40 WBC RBC Hgb Hct MCV MCH MCHC RDW Plt Count MPV Sodium Potassium Chloride Carbon Dioxide Anion Gap BUN Creatinine Est GFR (CKD-EPI 2020) Glucose Calcium Magnesium Total Bilirubin AST ALT Alkaline Phosphatase Troponin I < 4 NT-Pro-B Natriuret Pep Total Protein Albumin Lipase Urine Color Urine Clarity Urine pH Ur Specific [place] Urine Protein Urine Ketones Urine Blood Urine Nitrite Urine Bilirubin Urine Urobilinogen Ur Leukocyte Esterase Urine RBC Urine WBC Ur Epithelial Cells Urine Crystals Urine Bacteria Urine Casts Urine Mucus Ur Culture Indicated? Urine Glucose MRSA (TEM-PCR) Time Spent with Patient Time Spent with Patient: 25-34 minutes Time was spent: preparing to see the patient(eg.review tests), obtaining and/or reviewing separately otained hiistory, ordering medications,tests, procedures, referring, communicating with other health critical care educator, indepentently interpreting results, counseling the patient and care coordination
--- NOTE | 2024-11-17 16:53 | INITIAL_ITS ---
Date of service: 11/17/24 Time of Service: 16:53 Care Management Initial Assmt Initial Assessment Reason for Hospitalization: aspiration pneumonia Functional Status/Living Situation Patient Presentation: Jennifer presented to the ED yesterday afternoon with c/o chest pain. She was found to have an aspiration pneumonia, which is believed to be caused by some nausea and vomiting. Today Jennifer was sitting up in the bed when CM met with her. Jennifer is know to CM from previous admissions. Jennifer is very quiet at baseline, but seemed happy to see CM and was very pleasant. She stated that she is really feeling lousy. She is not particularly happy at the LT facility where she lives, but knows that she can no longer care for herself at home. Town of Residence: [facility] Resides with: Spouse (Jennifer and her Campos live together at [facility]) Significant Other/Family: Local (, Rogelio. Clinton Melton and Shiva live in [place]. 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) Instrumental Activities of Daily Living (ADLs): Requires support Medications Medication Management: No Issues/Barriers identified Physical Functioning/Mobility Assistive Device: uses a walker Advance Directives Advance Directives: Do you have an Advance Directive: N , 08:18 AD On File at [facility]: N 05/01/24, 08:18 Date Asked 11/16/24 11/16/24, 14:02 AD Date Reviewed COLST On File at [facility] COLST Date Scanned Code Status Resuscitation Status Full Code Insurance Coverage/Financial Issues Insurance: Medicaid [facility] - FINANCIAL ASST 100 - [id number] Care Team Visit Care Team Role Provider Type Esau Rod MD MD [facility] STAFF PHYSICIAN Ana Gillespie Primary Care Provider NURSE PRACTITIONER Brittany Sanchez RDN, [facility] Other Providers PIPELINES MANAGER Catarina Ocasio Other Providers OTHER Levy Sotomayor RDN Other Providers PIPELINES MANAGER Ismael Eason DO Emergency Provider [facility] STAFF PHYSICIAN Darin Giron MD Admit Provider [facility] STAFF PHYSICIAN Attending Provider Discharge Potential Discharge Needs: Other (facility provider f/u) Anticipated Barriers to Discharge: None Identified Patient/Family Education Needs: Review discharge instructions, discuss Ask Me Three Transportation: RCT RCT Transportation: Wheel chair van Plan: Anticipate that Jennifer will return to [facility] for Living once medically cleared. She will f/u with the facility provider and per her plan of care. She will transport via RCT wheelchair van. CM will continue to follow. Social Determinants of Health Screening Social Determinants of health last assessed in clinic: 11/16/24 Will the Patient Participate in the Screening?: Declined to provide Do you worry about having a steady place to live?: no Problems where you live: no known problems In the past 12 months, have you had to go without electric, gas, oil or water in your home?: choose not to answer Has lack of transportation kept you from medical appointments or from doing things needed for daily living?: no Has anyone in your life made you feel unsafe or unsupported?: no How hard is it for you to pay for the very basics like food, housing, medical care, and heating? Would you say it is:: Not hard at all Do you want help finding or keeping work or a job?: I do not need or want help If for any reason you need help with day-to-day activities such as bathing, preparing meals, shopping, managing finances, etc., do you get the help you need?: I get all the help I need How often do you feel lonely or isolated from those around you?: Sometimes Do you speak a language other than Romansh at home?: No Does the patient want assistance with any of the above?: No Health Related Social Needs Health related social needs: material hardship(utilities) (Z59.12) and feeling lonely/isolated (Z60.8) Health related social needs details: Patient currently lives at [facility] with her . PFSH All Active Problems Advanced care planning/counseling discussion (Acute) Palliative care encounter (Acute) S/P percutaneous endoscopic gastrostomy (PEG) tube placement (Acute) Community acquired pneumonia (Acute) Paroxysmal supraventricular tachycardia by electrocardiogram (ECG) (Acute) Acute exacerbation of chronic obstructive pulmonary disease (Acute) Left lower lobe pneumonia (Acute) PEG tube malfunction (Acute) Dilatation of esophagus (Acute) History of total right hip replacement (Acute 03/01/24) As treatment for R femoral neck fracture Medical History COPD (chronic obstructive pulmonary disease) with acute bronchitis Insulin dependent type 2 diabetes mellitus HFrEF (heart failure with reduced ejection fraction) Pre-op evaluation Abnormal chest xray H/O: pneumonia Drug-induced parkinsonism Neuroleptic induced parkinsonism Tubular adenoma (~06/10/21) Hyperplastic colon polyp (~06/10/21) Erosive esophagitis Esophageal ulcer with bleeding Farrell's esophagus Chronic diarrhea Black tarry stools Pleural effusion Leukocytosis Ventral hernia Cholelithiasis Atrial flutter Diabetes Bipolar 1 disorder Depression COVID Acute respiratory failure with hypoxia Acute on chronic respiratory failure with hypoxia Lab test positive for detection of COVID-19 virus Gastrostomy tube obstruction Aspiration pneumonia Pneumonitis Acute respiratory failure with hypoxia and hypercarbia Myocardial injury COPD with acute exacerbation NSTEMI (non-ST elevated myocardial infarction) Per pt. states she did not have a heart attack Bronchiolitis Acute on chronic respiratory failure with hypoxia and hypercapnia Hypotension Vitamin D deficiency Esophageal stricture Chronic systolic (congestive) heart failure Aspiration pneumonia Stress-induced cardiomyopathy acute onset managed at [facility] 08/30 pressors, EF 25%, has since recovered RH Acute cardiogenic pulmonary edema Acute metabolic encephalopathy Bilateral pneumonia Hypokalemia Closed fracture of neck of left femur s/p Percutaneous Screw Fixation 08/09/22 Constipation Diabetes mellitus type 2 in obese Chronic iron deficiency anemia ETOH abuse Chronic pancreatitis due to acute alcohol intoxication Alcohol abuse Per pt. states she has never had an issues with any subtances History of pilonidal cyst Anxiety Surgical History PEG (percutaneous endoscopic gastrostomy) status Status post hip surgery History of total left hip arthroplasty (01/19/23) S/P laparoscopic procedure cyst removed from stomach per patient S/P surgical removal of pilonidal cyst History of esophagogastroduodenoscopy (EGD) (~06/10/21) History of colonoscopy with polypectomy (~06/10/21) History of hysterectomy History of tonsillectomy History of section Family History Father Hypertension Diabetes Heart disease Social History Smoking/Tobacco Use Status: Former Tobacco Use Quit Date: 10/01/21 Smoking risk assessment performed?: Yes Alcohol Intake: never Drug use: Never Substance use type: does not use Household members: spouse Housing: fdc Number of Children: 2 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
[2024-11-17] MEDS: Atorvastatin 40 MG TAB 80 MG JT (21:19)
[2024-11-17] MEDS: DULoxetine 20 MG CAP NG (21:20)
[2024-11-18] MEDS: AMPICILLIN/SULBACTAM 3 GM in Normal Saline 100 ML IVPB ×5 (00:13→23:54)
[2024-11-18] MEDS: Insulin Aspart 300 UNITS/3 ML PEN SC ×2 (03:28→10:28)
[2024-11-18 03:31] VITALS: BP 114/60; PULSE 78; RESP 17; TEMP 37.1; O2SAT 94
[2024-11-18 06:59] LABS: Abs Immature Grans 0.05 10^3/uL (0.0-0.06); HCT 36.2 % (36.0-46.0); HGB 11.9 g/dL (11.2-15.7); Immature Grans % 0.6 %; MCH 28.4 pg (27.0-33.0); MCHC 32.9 % (32.0-36.0); MCV 86 fL (80-95); MPV 12.3 fL (8.0-11.0); RBC 4.19 10^6/uL (3.93-5.22); RDW 15.4 % (11.7-14.6); RDW-SD 49.1 fL; WBC 8.50 10^3/uL (4.4-10.8)
[2024-11-18 07:33] LABS: Platelet Count 96 10^3/uL (130-400); RBC Morphology Normal
[2024-11-18 08:27] VITALS: BP 112/60; PULSE 71; RESP 16; TEMP 36.4; O2SAT 96
[2024-11-18 08:54] LABS: ALT 17 U/L (14-59); AST 16 U/L (15-37); Albumin 2.3 g/dL (3.4-5.0); Alkaline Phosphatase 113 U/L (46-116); Anion Gap 6.2 mmol/L (3-11); BUN 20 mg/dL (7-18); Bilirubin, Total 0.3 mg/dL (0.2-1.0); CO2 30.8 mmol/L (21.0-32.0); Calcium 9.3 mg/dL (8.5-10.1); Chloride 103 mmol/L (98-107); Estimated GFR 82.23 (mL/min/1.73m2); Glucose 210 mg/dL (74-106); Potassium 4.4 mmol/L (3.5-5.1); Sodium 140 mmol/L (136-145); Total Protein 6.4 g/dL (6.4-8.2)
[2024-11-18] MEDS: QUEtiapine 100 MG TAB 300 MG PO (09:15)
[2024-11-18] MEDS: Empaglifozin 10 MG TAB PO (09:16)
[2024-11-18] MEDS: Enoxaparin 40 MG/0.4 ML SYR SC (09:17)
[2024-11-18] MEDS: Normal Saline Flush 10 ML SYR IVP ×3 (09:18→20:55)
[2024-11-18] MEDS: Metoprolol CR 50 MG TABCR 25 MG NG ×2 (09:31→20:53)
[2024-11-18] MEDS: Acetaminophen Solution 650 MG/20.3 ML CUP JT (10:26)
--- NOTE | 2024-11-18 10:27 | IN_ITS ---
Date of service: 11/18/24 Time of Service: 09:57 PT Notes Visit Reasons: Aspiration PNA Inpatient Physical Therapy Evaluation I certify the need for these services as being medically necessary and skilled as furnished under this plan of treatment while under my care. Please sign and return within 14 days if you agree with the plan of care listed below.? Thank you for this referral! ? Referring Physician? Date Referring Doctor:? Esau Rod PT Orders: PT CONSULT for evaluation Precautions: fall risk, O2 levels Patient Profile/Admitting Diagnosis:? The patient is a 64 yo female adm on 11/16/24 for aspiration pneumonia in the setting of nausea and vomiting just prior to arrival. Past Medical History: All Active Problems (Updated 11/16/24 @ 18:47 by Darin Giron MD) S/P percutaneous endoscopic gastrostomy (PEG) tube placement (Acute) Community acquired pneumonia (Acute) Paroxysmal supraventricular tachycardia by electrocardiogram (ECG) (Acute) Acute exacerbation of chronic obstructive pulmonary disease (Acute) Left lower lobe pneumonia (Acute) PEG tube malfunction (Acute) Dilatation of esophagus (Acute) History of total right hip replacement (Acute 03/01/24) As treatment for R femoral neck fracture Medical History COPD (chronic obstructive pulmonary disease) with acute bronchitis Vitamin D deficiency Hypotension HFrEF (heart failure with reduced ejection fraction) Bronchiolitis COPD with acute exacerbation Myocardial injury Acute respiratory failure with hypoxia and hypercarbia Acute on chronic respiratory failure with hypoxia and hypercapnia Pneumonitis Aspiration pneumonia Gastrostomy tube obstruction Lab test positive for detection of COVID-19 virus Acute on chronic respiratory failure with hypoxia Esophageal stricture Chronic systolic (congestive) heart failure Insulin dependent type 2 diabetes mellitus Aspiration pneumonia COVID Pre-op evaluation Abnormal chest xray H/O: pneumonia Stress-induced cardiomyopathy acute onset managed at [facility] 08/30 pressors, EF 25%, has since recovered RHNSTEMI (non-ST elevated myocardial infarction) Per pt. states she did not have a heart attackAcute cardiogenic pulmonary edema Acute metabolic encephalopathy Bilateral pneumonia Acute respiratory failure with hypoxia Hypokalemia Closed fracture of neck of left femur s/p Percutaneous Screw Fixation 08/09/22Constipation Drug-induced parkinsonism Neuroleptic induced parkinsonism Diabetes mellitus type 2 in obese Tubular adenoma (~06/10/21) Hyperplastic colon polyp (~06/10/21) Erosive esophagitis Esophageal ulcer with bleeding Chronic iron deficiency anemia Farrell's esophagus Chronic diarrhea Black tarry stools Pleural effusion Leukocytosis ETOH abuse Ventral hernia Chronic pancreatitis due to acute alcohol intoxication Alcohol abuse Per pt. states she has never had an issues with any subtancesCholelithiasis Atrial flutter History of pilonidal cyst Diabetes Bipolar 1 disorder Anxiety Depression Surgical History PEG (percutaneous endoscopic gastrostomy) status History of total left hip arthroplasty (01/19/23) Status post hip surgery S/P laparoscopic procedure cyst removed from stomach per patientS/P surgical removal of pilonidal cyst History of esophagogastroduodenoscopy (EGD) (~06/10/21) History of colonoscopy with polypectomy (~06/10/21) History of hysterectomy History of tonsillectomy History of section Former Tobacco Use Quit Date: 02/07/21 Medications: See chart Social History/Home Situation: Lives with her Campos at [facility]. Reports she normally struggles to dress herself. Reports she is normally able to walk to the activity room with her walker by herself but walks funny secondary to bilateral neuropathy. Subjective: Reports she has had left scapular pain and left chest wall pain for a while now. She is not sure if it is related to a [facility] or the recent pnemonia. Worse with movement and when she takes a deep breath. Reports she has been having left anterior proximal thigh pain for a while now since she fell. Reports she had xrays and was told nothing was broken. Tspine, hip, pelvis and lumbar spine xrays did not show a fracture and showed minimal arthritis. Objective: RN assisting with peg tube upon arrival. performed pericare in sitting with set up only after toileting. Mental Status: Patient is alert and grossly oriented. Pain: see above. Vital Signs: 827 am: 112/60, 71 bm, 36.4 C, 96% on RA ROM/Strength: Upper extremities: pain with left shoulder ROM Lower extremities: Pain with left active SLR Sensation: Reports bilateral foot neuropathy Soft tissue/edema: grossly intact. Bed Mobility: Supine to sit supervision quickly. Transfers: Sit to/from stand supervision quickly. Gait: Ambulated 4, 45 feet with walker with assist for iv pole/lines supervision. Balance: mildly unsteady with gait. [facility] AM-PAC 6 clicks Basic Mobility Inpatient Short Form: Raw Score:?18? CMS Score: 46.58% Informed Consent/Education:? Patient instructed in purpose of PT consult and plan of care and is agreeable Assessment:? Patient is a? 64 yo female adm on 11/16/24 for aspiration pneumonia in the setting of nausea and vomiting just prior to arrival.? Patient presents with left hip/thigh, left chest wall, left scapular pain, decreased strength, decreased functional mobility, decreased balance and difficulty with ambulation. The patient would benefit from skilled inpatient services to improve these impairments to maximize function and safety. Patient is assessed as:? Low 18018??complexity based on the following: History: overweight Examination: see above Presentation: Stable and uncomplicated? Decision Making:? Low (0 history, 1-2 exam, stable/predictable, easy 20) Physical Therapy Goals: 3 days Able to get in/out of bed with supervision only. Able to perform sit to/from stand with supervision only. Able to walk 100 eet with rolling walker with supervision only. Independent with home exercise program Plan of Care/Treatment Plan: 1x/day, 7 days/week x 1 week. Plan of care has been reviewed with the BUCKLE ATTACHING MACHINE OPERATOR providing the service under Physical Therapy direction. Initiate Physical Therapy intervention for strengthening, bed mobility, transfers, gait, stairs, balance training, use of assistive device. DISCHARGE RECOMMENDATIONS: Return to SNF when medically stable. Recommend PT consult for left scapular, left chest wall and left hip pain upon her return Informed consent Prior to the start and throughout the course of the examination and treatment, patient was made aware of the specifics and purpose of the physical assessment and treatment procedures. Appropriate draping procedures were utilized to protect modesty where applicable. Billing Charges: Treatment Units Time Duration Manual Therapy(46957) Hands-on techniques to modulate pain increase joint rang e of motion reduce or eliminate soft tissue swelling, inflammation, or restriction facilitate relaxation and improve contractile and non-contractile tissue extensibility ? ? Therapeutic Procedures (97883) Instruction in therapeutic exercises to develop strength and endurance, range of motion and flexibility. HEP instruction and review: Provided skilled instruction in proper exercise performance: Provided skilled manual cues to facilitate proper muscle recruitment and/or movement pattern Neurological Re-Education(14054) To improve balance, coordination, kinesthetic and proprioceptive sensations. ? ? Ultrasound(68704) To promote healing. ? ? Gait Training(50623) ? ? Therapeutic Activity(50868) Instruction in dynamic activities with one on one patient contact by the provider to improve functional performance as follows: ?1 16 ? Self Care Training(54125) ? ? E-Stim (Attended)(93302) ? ? Low IE(09678) 1 13 Mod IE(61974) ? ? High IE(24059) ? ? Time Coded Treatment Time ? 16 Total Treatment Time ? 29
[2024-11-18] MEDS: Lactated Ringers 1,000 ML 125 ML IV ×2 (10:46→21:26)
--- NOTE | 2024-11-18 16:42 | PGE_ITS ---
Date of Service Date of service: 11/18/24 Time of Service: 14:00 Assessment and Plan Assessment and plan (1) Aspiration pneumonia: Assessment and plan: Nausea and vomiting prior to arrival, infiltrates on CT She is not dependent on the PEG for all intake, she does eat and drink during the day Continue unasyn Started observed feeds, nocturnal tube feeds (2) S/P percutaneous endoscopic gastrostomy (PEG) tube placement: Status: Acute Assessment and plan: Multiple previous aspiration episodes, likely initially due to esophageal strictures Appreciate palliative and nutrition support (3) Insulin dependent type 2 diabetes mellitus: Assessment and plan: - Continue home 10 unit Lantus every afternoon, 10 mg Jardiance through feeding tube daily - SSI (4) Farrell's esophagus: Assessment and plan: - Resulting in severe strictures and PEG tube placement - Continue PPI through PEG tube (5) Bipolar 1 disorder: Assessment and plan: - Continue home quetiapine and valproic acid through PEG tube (6) Atrial flutter: Assessment and plan: - Continue metoprolol succinate 25 mg p.o. twice daily through PEG tube - Patient does not appear to be on anticoagulation (7) Stress-induced cardiomyopathy: Assessment and plan: - Apparently patient had EF as low as 25% though has since recovered - Continue home Entresto, statin both through feeding tube Subjective Subjective Interval history since last seen: Mrs. Irving is comfortable in bed. She has pain with deep inspiration and with expiration. Improving. Objective Last Vital Signs Temp 36.4 C L 11/18/24 08:27 Pulse 71 11/18/24 08:27 Resp 16 11/18/24 08:27 BP 112/60 11/18/24 08:27 Pulse Ox 96 11/18/24 08:27 Laboratory Results - last 24 hr 11/18/24 11/18/24 06:12 08:20 WBC 8.50 RBC 4.19 Hgb 11.9 Hct 36.2 MCV 86 MCH 28.4 MCHC 32.9 RDW 15.4 H Plt Count 96 L MPV 12.3 H Immature Gran % 0.6 Neutrophils % 77.7 Lymphocytes % 12.2 Monocytes % 7.6 Eosinophils % 1.8 Basophils % 0.1 Nucleated RBC % 0.0 Absolute Neutrophils 6.60 Absolute Lymphocytes 1.04 L Absolute Monocytes 0.65 Absolute Eosinophils 0.15 Absolute Basophils 0.01 RBC Morphology Normal Sodium 140 Potassium 4.4 Chloride 103 Carbon Dioxide 30.8 Anion Gap 6.2 BUN 20 H Creatinine 0.8 Est GFR (CKD-EPI 2020) 82.23 Glucose 210 H Calcium 9.3 Total Bilirubin 0.3 AST 16 ALT 17 Alkaline Phosphatase 113 Total Protein 6.4 Albumin 2.3 L Time Spent with Patient Time Spent with Patient: 25-34 minutes Time was spent: preparing to see the patient(eg.review tests), obtaining and/or reviewing separately otained hiistory, ordering medications,tests, procedures, referring, communicating with other health intensive care unit registered nurse, indepentently interpreting results, counseling the patient and care coordination
[2024-11-18 19:46] VITALS: BP 112/49; PULSE 64; RESP 20; TEMP 36.4; O2SAT 96
[2024-11-18] MEDS: Insulin Glargine 300 UNITS/3 ML PEN 10 UNITS SC (20:00)
[2024-11-18] MEDS: Atorvastatin 40 MG TAB 80 MG JT (20:52)
[2024-11-18] MEDS: Melatonin 3 MG TAB 9 MG PO (20:53)
[2024-11-18] MEDS: DULoxetine 20 MG CAP NG (20:53)
[2024-11-18 23:26] VITALS: BP 114/53; PULSE 59; RESP 20; TEMP 36.6; O2SAT 94
[2024-11-19] MEDS: Insulin Aspart 300 UNITS/3 ML PEN SC (03:13)
[2024-11-19] MEDS: AMPICILLIN/SULBACTAM 3 GM in Normal Saline 100 ML IVPB ×2 (05:43→11:20)
[2024-11-19] MEDS: Ondansetron O.D.T. 4 MG TABEF JT (07:34)
[2024-11-19] MEDS: QUEtiapine 100 MG TAB 300 MG PO (07:35)
[2024-11-19] MEDS: Metoprolol CR 50 MG TABCR 25 MG NG (07:36)
[2024-11-19] MEDS: Enoxaparin 40 MG/0.4 ML SYR SC (07:37)
[2024-11-19] MEDS: Empaglifozin 10 MG TAB PO (07:37)
[2024-11-19] MEDS: Normal Saline Flush 10 ML SYR IVP (07:37)
[2024-11-19 07:46] VITALS: BP 105/85; PULSE 61; RESP 18; TEMP 36.6; O2SAT 96
--- NOTE | 2024-11-19 11:10 | DSE_ITS ---
Date of service: 11/19/24 Time of Service: 11:10 DS: Diagnosis Discharge Diagnosis (1) Aspiration pneumonia: Asessment and Plan: Nausea and vomiting prior to arrival, infiltrates on CT She is not dependent on the PEG for all intake, she does eat and drink during the day Continue unasyn Started observed feeds, nocturnal tube feeds (2) S/P percutaneous endoscopic gastrostomy (PEG) tube placement: Status: Acute Asessment and Plan: Multiple previous aspiration episodes, likely initially due to esophageal strictures Appreciate palliative and nutrition support (3) Insulin dependent type 2 diabetes mellitus: Asessment and Plan: - Continue home 10 unit Lantus every afternoon, 10 mg Jardiance through feeding tube daily (4) Farrell's esophagus: Asessment and Plan: - Resulting in severe strictures and PEG tube placement - Continue PPI through PEG tube (5) Bipolar 1 disorder: Asessment and Plan: - Continue home quetiapine and valproic acid through PEG tube (6) Atrial flutter: Asessment and Plan: - Continue metoprolol succinate 25 mg p.o. twice daily through PEG tube - Patient is not on anticoagulation (7) Stress-induced cardiomyopathy: Asessment and Plan: - Apparently patient had EF as low as 25% though has since recovered - Continue home Entresto, statin both through feeding tube Discharge Plan Disposition Patient Disposition: Halfway Facility(SNF) Condition: Fair Discharge Details Reason For Visit: Aspiration PNA Admit Date/Time: 11/16/24 18:22 Admit Provider: Darin Giron Attending Provider: Darin Giron Primary Care Provider: Ana Gillespie Hospital Course Hospital Course: Jennifer Irving is a 64 year old woman presenting November 16 with chest pain, in the setting of previous stress-induced cardiomyopathy, multiple hospitalizations for aspiration, and chronic esophageal stenosis with PEG. Imaging and labs were suggestive of aspiration pneumonia; after discussion with [facility] she was admitted for IV antibiotics and supportive care. She has improved on IV antibiotics and can now safely discharge on PO antibiotics. Home Meds and New Rx's Prescriptions: New Augmentin 125-31.25 mg/5 mL suspension for reconstitution 70 ml feeding tube Q12H 5 Days Qty: 700 0RF cyclobenzaprine 10 mg Tablet 10 mg NG TID PRN PRNQty: 30 0RF Continued bupropion HCl 100 mg tablet 300 mg PO DAILY Patient Comments: via g-tube, per pcp ov notes 12/09/22 RH duloxetine [Cymbalta] 20 mg capsule,delayed release(DR/EC) 20 mg PO HS Patient Comments: TAKE 1 CAPSULE PER DAY VIA G-TUBE IN THE EVENING Entresto 24-26 mg tablet 1 tab feeding tube DAILY Patient Comments: via g-tube Jardiance 10 mg tablet 10 mg feeding tube DAILY atorvastatin 80 mg tablet 80 mg feeding tube QPM valproic acid (as sodium salt) 250 mg/5 mL solution 300 mg feeding tube TID Rx Instructions: 6mls TID metoprolol succinate 50 mg tablet extended release 24 hr 25 mg PO BID Rx Instructions: Given via G-tube aspirin 81 mg tablet,chewable 81 mg feeding tube DAILY Qty: 30 0RF bisacodyl 10 mg suppository 10 mg IN DAILY PRN quetiapine 100 mg tablet 300 mg feeding tube DAILY folic acid 1 mg Tablet 1 mg feeding tube DAILY albuterol sulfate 90 mcg/actuation HFA aerosol inhaler 2 puff inhalation Q4H PRN acetaminophen 500 mg/15 mL liquid 1,000 mg feeding tube Q8H PRN pantoprazole [address] for susp in packet 40 mg G-tube DAILY Patient Comments: Take 1 packet via g-tube twice a day Administer in 10 mL of apple juice via g-tub, then follow with another 10 mL. nystatin 100,000 unit/gram cream 1 applic TOPICAL TID PRN Patient Comments: APPLY A SMALL AMOUNT TO AFFECTED AREA(S) ON BUTTOCKS THREE TIMES A DAY NEEDED melatonin 3 mg tablet 9 mg feeding tube HS Patient Comments: TAKE THREE TABLETS VIA G-TUBE EVERY NIGHT DIRECTED insulin glargine [Lantus Solostar U-100 Insulin] 100 unit/mL (3 mL) insulin pen 10 unit SUBCUT QPM Patient Comments: INJECT 10 UNITS UNDER THE SKIN NIGHTLY DIRECTED ondansetron HCl 4 mg tablet 4 mg feeding tube Q6H PRN Patient Comments: TAKE ONE TABLET VIA G-TUBE EVERY 8 HOURS NEEDED (DME) Space Chamber Spacer See Rx Instructions .Route Qty: 1 0RF Rx Instructions: As directed Discontinued duloxetine [Cymbalta] 60 mg capsule,delayed release(DR/EC) 60 mg PO DAILY Rx Instructions: Given via G-tube ferrous sulfate 300 mg (60 mg iron)/5 mL liquid 300 mg feeding tube .QOD Patient Comments: TAKE 5ML VIA G-TUBE EVERY OTHER DAY Humulin N NPH Insulin KwikPen 100 unit/mL (3 mL) insulin pen See Rx Instructions .ROUTE .COMPLEX Qty: 0 0RF Rx Instructions: 20 units at 11 am followed by sliding scale at 3 pm (5 units for blood sugar of 250 plus 1 additional unit for any 20 points that the blood sugar is above 250) ibuprofen 100 mg/5 mL suspension 600 mg PO Q8H PRN guaifenesin 200 mg/5 mL liquid 200 mg feeding tube Q4H PRNQty: 118 0RF nystatin 100,000 unit/gram ointment 1 applic TOPICAL BID Patient Comments: APPLY TO AFFECTED AREA(S) TWO TIMES A DAY Discharge Instructions Activity:: Activity as Tolerated Equipment/Supplies:: No Equipment Needed Diet:: As Tolerated Discharge Orders Discharge Orders: Discharge Order (Routine); Ordered 11/19/24 Ordered By: Esau Rod DS: Summary Time Spent with Patient providing and/or coordinating discharge services: Less than 30 minutes Status at Discharge Functional status at discharge: uses cane/walker Overall status at discharge: patient is back to baseline Mental Status: mental status grossly normal Speech and Movement: speech and movement normal Mood: congruent mood Affect: normal affect Quality:SDOH Health Related Social Needs: Health related social needs material hardship lonely/i solated Health related social needs details Patient currently lives at [facility] with her . Health related social needs details: Patient currently lives at [facility] with her . Exam Psych Mental Status: mental status grossly normal Speech and Movement: speech and movement normal Mood: congruent mood Affect: normal affect DS: Data Vitals/I&O Vitals and I&O: Vital Signs Temperature 36.6 C 11/19/24 07:46 Temperature Source Temporal Artery Scan 11/19/24 07:46 Pulse 61 11/19/24 07:46 Pulse Rhythm Regular 11/16/24 22:44 Pulse 79 11/16/24 18:16 Respiratory Rate 18 11/19/24 07:46 Respiratory Effort Normal 11/16/24 22:44 Respiratory Depth Normal 11/16/24 22:44 Respiratory Pattern Normal 11/16/24 22:44 Blood Pressure 105/85 11/19/24 07:46 Blood Pressure Mean 91 11/19/24 07:46 Blood Pressure Position Supine 11/16/24 14:04 Pulse Oximetry 96 11/19/24 07:46 Oxygen Delivery Method Room Air 11/19/24 07:46 Oxygen Flow Rate 0 11/19/24 07:46 Pain Level 0 11/18/24 08:27 Comment per nurse heart rate and O2 only 11/17/24 05:55 Intake & Output 11/18/24 11/18/24 11/19/24 11:59 23:59 11:59 Intake Total 1674 / 2884 1210 / 2884 1316 / 1316 Output Total 400 / 400 850 / 850 Balance 1274 / 2484 1210 / 2484 466 / 466 Intake: IV 1200 / 2410 1210 / 2410 1200 / 1200 Intake, Tube Feeding Amount 474 / 474 116 / 116 Output: Urine 400 / 400 850 / 850 Other: Urine Color Yellow Yellow Yellow Urine Appearance Clear Clear Clear Urine Odor Normal Normal Comment Mixed with stools. pt void est 400 into commode Stool Size Moderate Small Large Stool Characteristics Brown Formed Hard Emesis Description None Mucous PFSH All Active Problems Advanced care planning/counseling discussion (Acute) Palliative care encounter (Acute) S/P percutaneous endoscopic gastrostomy (PEG) tube placement (Acute) Community acquired pneumonia (Acute) Paroxysmal supraventricular tachycardia by electrocardiogram (ECG) (Acute) Acute exacerbation of chronic obstructive pulmonary disease (Acute) Left lower lobe pneumonia (Acute) PEG tube malfunction (Acute) Dilatation of esophagus (Acute) History of total right hip replacement (Acute 03/01/24) As treatment for R femoral neck fracture Medical History COPD (chronic obstructive pulmonary disease) with acute bronchitis Insulin dependent type 2 diabetes mellitus HFrEF (heart failure with reduced ejection fraction) Pre-op evaluation Abnormal chest xray H/O: pneumonia Drug-induced parkinsonism Neuroleptic induced parkinsonism Tubular adenoma (~06/10/21) Hyperplastic colon polyp (~06/10/21) Erosive esophagitis Esophageal ulcer with bleeding Farrell's esophagus Chronic diarrhea Black tarry stools Pleural effusion Leukocytosis Ventral hernia Cholelithiasis Atrial flutter Diabetes Bipolar 1 disorder Depression COVID Acute respiratory failure with hypoxia Acute on chronic respiratory failure with hypoxia Lab test positive for detection of COVID-19 virus Gastrostomy tube obstruction Aspiration pneumonia Pneumonitis Acute respiratory failure with hypoxia and hypercarbia Myocardial injury COPD with acute exacerbation NSTEMI (non-ST elevated myocardial infarction) Per pt. states she did not have a heart attack Bronchiolitis Acute on chronic respiratory failure with hypoxia and hypercapnia Hypotension Vitamin D deficiency Esophageal stricture Chronic systolic (congestive) heart failure Aspiration pneumonia Stress-induced cardiomyopathy acute onset managed at [facility] 08/30 pressors, EF 25%, has since recovered RH Acute cardiogenic pulmonary edema Acute metabolic encephalopathy Bilateral pneumonia Hypokalemia Closed fracture of neck of left femur s/p Percutaneous Screw Fixation 08/09/22 Constipation Diabetes mellitus type 2 in obese Chronic iron deficiency anemia ETOH abuse Chronic pancreatitis due to acute alcohol intoxication Alcohol abuse Per pt. states she has never had an issues with any subtances History of pilonidal cyst Anxiety Surgical History PEG (percutaneous endoscopic gastrostomy) status Status post hip surgery History of total left hip arthroplasty (01/19/23) S/P laparoscopic procedure cyst removed from stomach per patient S/P surgical removal of pilonidal cyst History of esophagogastroduodenoscopy (EGD) (~06/10/21) History of colonoscopy with polypectomy (~06/10/21) History of hysterectomy History of tonsillectomy History of section Family History Father Hypertension Diabetes Heart disease Social History Smoking/Tobacco Use Status: Former Tobacco Use Quit Date: 02/07/21 Smoking risk assessment performed?: Yes Alcohol Intake: never Drug use: Never Substance use type: does not use Household members: spouse Housing: halfway Number of Children: 2 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 Additional Social history: At [facility] with Time Spent with Patient Time Spent with Patient: <45 minutes Time was spent: preparing to see the patient(eg.review tests), obtaining and/or reviewing separately otained hiistory, ordering medications,tests, procedures, referring, communicating with other health home care chaplain, indepentently interpreting results, counseling the patient and care coordination
[2024-11-19 11:30] VITALS: BP 128/58; PULSE 61; RESP 18; TEMP 36.6; O2SAT 97
--- NOTE | 2024-11-19 12:04 | CMDISCH_ITS ---
Date of service: 11/19/24 Time of Service: 12:04 LACE Index Scoring Tool Questions: Length of Stay (in days): 3 Was the patient admitted via the E.D.?: Yes Comorbidities: Previous M.I., Diabetes w/o Complication and Chronic Pulmonary Disease E.D. Visits: 3 Answers: Total Score: 14 Risk of Readmission: High Risk Care Management Discharge Plan Reason for Hospitalization: aspiration pneumonia Discharge Plan: Jennifer will be transferred this afternoon back to [facility]. She will f/u with the facility provider and continue per her plan of care. It is recommended that she continue with PT. Jennifer will transport via [facility] wheel chair van. Patient/Family Education Needs: Review of discharge instructions, activity, limitations, and discuss Ask me 3. Services Needed at Discharge: Residential Facility and Transportation ([facility] wheel chair van) SDOH Health Related Social Needs: Health related social needs material hardship lonely/i solated Health related social needs details Patient currently lives at [facility] with her . Health related social needs details: Patient currently lives at [facility] with her .
== END 2024-11-19 13:44 | disposition skilled nursing facility (03) | DRG 178 ==
LOC: ER 18:20 → MS 20:57
PROVIDERS: Admitting Provider Family Medicine; Emergency Provider Student in an Organized Health Care Education/Training Program; PCP Nurse Practitioner Family; Responsible Provider Family Medicine; Visit Provider Family Medicine
DX: J69.0 Pneumonitis due to inhalation of food and vomit (principal); G21.11 Neuroleptic induced parkinsonism; I47.10 Supraventricular tachycardia, unspecified; I48.92 Unspecified atrial flutter; I51.81 Takotsubo syndrome; J44.0 Chronic obstructive pulmonary disease with (acute) lower respiratory infection; I50.32 Chronic diastolic (congestive) heart failure; R07.89 Other chest pain; Z93.1 Gastrostomy status; E11.9 Type 2 diabetes mellitus without complications; Z79.4 Long term (current) use of insulin; F31.9 Bipolar disorder, unspecified; K22.70 Barrett's esophagus without dysplasia; I25.2 Old myocardial infarction; Z96.641 Presence of right artificial hip joint; E55.9 Vitamin D deficiency, unspecified; K22.2 Esophageal obstruction; E66.9 Obesity, unspecified; Z68.31 Body mass index [BMI] 31.0-31.9, adult; Z87.891 Personal history of nicotine dependence; Z79.84 Long term (current) use of oral hypoglycemic drugs; Z79.899 Other long term (current) drug therapy
CPT/HCPCS: 00123; 36415; 36416; 71275; 74177; 80048; 80053; 82962; 83690; 85027; 87641; 93005; 96361; 96365; 96375; 96376; 97110; 97161; 99285; J1650; 81003; 81015; 83735; 83880; 84484; 85025; 85610; 85730; 93010; 99223; 99232; 99238; J0295; J1171; J1815; J2060; J2270; J2405; J2765; J3490

== ENCOUNTER 2024-11-23 13:10 | Outpatient (REF) | payer MEDICAID, SELFPAY ==
[2024-11-23 15:03] LABS: Calculated LDL 37 mg/dL (<100); Cholesterol 110 mg/dL (<200); HDL Cholesterol 37 mg/dL (>or=50); Triglyceride 181 mg/dL (<150)
[2024-11-23 15:26] LABS: Hemoglobin A1C 10.1 % (<5.7)
== END 2024-11-23 13:11 | disposition home or self-care (01) ==
LOC: LBN 13:10
PROVIDERS: PCP Nurse Practitioner Family; Visit Provider Nurse Practitioner Adult Health
DX: E11.65 Type 2 diabetes mellitus with hyperglycemia (principal); E78.5 Hyperlipidemia, unspecified
CPT/HCPCS: 80061; 83036

== ENCOUNTER 2024-12-30 19:21 | Emergency (ER) | payer MEDICAID, SELFPAY ==
[2024-12-30] VITALS (25 sets, daily range): BP systolic 76–203; BP diastolic 48–98; PULSE 83–92; RESP 13–20; TEMP 36.6; O2SAT 94–99
--- NOTE | 2024-12-30 19:45 | RT.EKG_ITS ---
APPROVED REPORT Exam: Resting ECG Reason for Exam: QTc eval Patient Location: E HR:85 bpm ECG Measurements Heart Rate 85 AXIS NJ 152 P 75 QRSd 76 QRS 81 QT 412 T 56 QTc 490 Conclusion Sinus rhythm, rate 85 Prolonged QTc, 490ms, new from priors No STEMI Q waves V1-2
--- NOTE | 2024-12-30 19:45 | DI.CT_ITS ---
Exam(s) CT ABDOMEN PELVIS W EXAM: CT ABDOMEN PELVIS W CLINICAL HISTORY: N/V, hx PEG for esoph. stenosis. TECHNIQUE: Imaging Protocol: Axial computed tomography images with coronal and sagittal reformatted images were created and reviewed CONTRAST MATERIAL: Intravenous: Omnipaque-350 75 mLcc Oral: None COMPARISON: CT CT CHEST PE ABD PELVIS W from 11/16/2024 FINDINGS: VISUALIZED LUNG BASES: No nodules nor pleural effusions evident. ABDOMEN: Is in satisfactory position. No free air nor abscess at this level. There is mucosal enhancement throughout the stomach and duodenal C-loop. No evidence of ulcer nor surrounding mesenteric streaking. LIVER: There is a 1 point 3 x 0.8 cm benign cyst in the upper right hepatic lobe again noted. Does not require further workup. No new significant intrahepatic lesions nor dilated intrahepatic ducts.. GALLBLADDER/BILIARY: Small gallstones are again noted in the gallbladder lumen. No gallbladder wall edema nor pericholecystic fluid. The CBD is not dilated. PANCREAS: No evidence of pancreatic mass nor dilatation of the pancreatic duct. SPLEEN: Spleen is not enlarged. No obvious intrasplenic lesions. Splenic and portal veins are patent. ADRENALS: Tiny nodule in the genu of the left adrenal gland is unchanged. This is probably a tiny benign adenoma. Right adrenal gland unremarkable. KIDNEYS:Left kidney unremarkable. Small benign 6 mm cyst in the posterior cortex of the right kidney is unchanged. This does not require further workup. No solid renal masses nor calculi nor hydronephrosis.. ABDOMINAL AORTA: The abdominal aorta is calcified but not enlarged. The common iliac arteries are also calcified but not enlarged. LYMPH NODES:There is no retroperitoneal nor paraaortic adenopathy. ABDOMINAL WALL: There is a spigelian hernia sac on the right side of the abdomen again noted, unchanged. This does not contain bowel loops. GI: There is no evidence of bowel obstruction, free air, nor abscess. PELVIS: GI: No evidence of appendicitis.No evidence of sigmoid diverticulitis. LYMPH NODES: There is no intrapelvic nor inguinal adenopathy. REPRODUCTIVE: Uterus is surgically absent. There are no abnormal adnexal masses nor free fluid in the pelvis. URINARY BLADDER: No calculi nor obvious masses evident OSSEOUS: Bilateral hip prostheses. No fractures nor significant osseous lesions. No disc space narrowing. Facet joints unremarkable IMPRESSION: 1. Compared to the prior CT scan of 11/16/2024 there is again noted gastric PEG in place a moderate size hiatal hernia. 2. Multiple small gallstones are noted in the gallbladder lumen but no evidence of acute cholecystitis nor station of the CBD and intrahepatic ducts. 3. Right-sided spigelian hernia again noted. Hernia sac does not contain bowel loops nor fluid. There is no evidence of bowel obstruction 4. Bilateral hip prostheses again noted. Preliminary virtual Radiology report was reviewed. RADIATION DOSE DELIVERED: 648.23mGy.cm Total DLP DATA REPOSITORY: All CT scans at this facility are submitted to the National Radiology Data Registry (NRDR) Dose Index Registry (DIR) with the [employer] (ACR). RADIATION OPTIMIZATION: All CT scans at this facility use at least one of these dose optimization techniques: automated exposure control; mA and/or kV adjustment per patient size (includes targeted exams where dose is matched to clinical indication); or iterative reconstruction.
--- NOTE | 2024-12-30 19:47 | W.ED.GENAD ---
Discharge Plan Disposition Patient Disposition: Home Condition: Stable Discharge Details Clinical Impression: Nausea & vomiting, Acute dehydration, MARILIN (acute kidney injury) Primary Care Provider: Ana Gillespie ED Provider: Gaby Houston Recommendations for Follow Up Recommended tests to be ordered by follow up provider: Renal function 1 week Home Meds and New Rx's Prescriptions: No Action bupropion HCl 100 mg tablet 300 mg PO DAILY Patient Comments: via g-tube, per pcp ov notes 12/09/22 RH duloxetine [Cymbalta] 20 mg capsule,delayed release(DR/EC) 20 mg PO HS Patient Comments: TAKE 1 CAPSULE PER DAY VIA G-TUBE IN THE EVENING Entresto 24-26 mg tablet 1 tab feeding tube DAILY Patient Comments: via g-tube Jardiance 10 mg tablet 10 mg feeding tube DAILY atorvastatin 80 mg tablet 80 mg feeding tube QPM valproic acid (as sodium salt) 250 mg/5 mL solution 300 mg feeding tube TID Rx Instructions: 6mls TID metoprolol succinate 50 mg tablet extended release 24 hr 25 mg PO BID Rx Instructions: Given via G-tube aspirin 81 mg tablet,chewable 81 mg feeding tube DAILY Qty: 30 0RF bisacodyl 10 mg suppository 10 mg SD DAILY PRN quetiapine 100 mg tablet 300 mg feeding tube DAILY folic acid 1 mg Tablet 1 mg feeding tube DAILY albuterol sulfate 90 mcg/actuation HFA aerosol inhaler 2 puff inhalation Q4H PRN acetaminophen 500 mg/15 mL liquid 1,000 mg feeding tube Q8H PRN pantoprazole [address] for susp in packet 40 mg G-tube DAILY Patient Comments: Take 1 packet via g-tube twice a day Administer in 10 mL of apple juice via g-tub, then follow with another 10 mL. nystatin 100,000 unit/gram cream 1 applic TOPICAL TID PRN Patient Comments: APPLY A SMALL AMOUNT TO AFFECTED AREA(S) ON BUTTOCKS THREE TIMES A DAY NEEDED melatonin 3 mg tablet 9 mg feeding tube HS Patient Comments: TAKE THREE TABLETS VIA G-TUBE EVERY NIGHT DIRECTED insulin glargine [Lantus Solostar U-100 Insulin] 100 unit/mL (3 mL) insulin pen 10 unit SUBCUT QPM Patient Comments: INJECT 10 UNITS UNDER THE SKIN NIGHTLY DIRECTED ondansetron HCl 4 mg tablet 4 mg feeding tube Q6H PRN Patient Comments: TAKE ONE TABLET VIA G-TUBE EVERY 8 HOURS NEEDED (DME) Space Chamber Spacer See Rx Instructions .Route Qty: 1 0RF Rx Instructions: As directed cyclobenzaprine 5 mg tablet 5 mg PO TID PRN (Reason: muscle spasm) Qty: 30 0RF Discharge Instructions Instructions: Dehydration, Adult (DC) Additional Instructions: You were seen in the emergency department today for evaluation after several episodes of nausea with vomiting. You had evidence of dehydration on your laboratory studies, and received IV fluids. You have a CT scan that did not show any abnormalities to account for your symptoms of nausea and vomiting. In our department you are able to tolerate some water and I am reassured that you will be able to maintain your hydration. However, your needs to recheck your kidney levels in about 1 week to make sure that they are improving. If you have any worsening of your nausea or vomiting, cannot maintain your hydration, develop a fever or abdominal pain you should return for reevaluation. Please follow-up with your primary care provider in the next few days to discuss this visit and any symptoms that change, worsen, or persist. Thank you for allowing us to be part of your care. HPI General Mode of arrival: EMS. Date/Time Provider Initiated Documentation: 12/30/24 19:22. Limitations to Documentation: no limitations. Information obtained by: patient, EMS and old records reviewed. HPI Narrative: This is a 64-year-old female patient with a past medical history significant for esophageal stenosis status post PEG tube placement for nutrition and hydration supplementation, history of recent admission 1 month prior for aspiration pneumonia, history of COPD, HFrEF, atrial flutter, diabetes, bipolar, who is presenting for evaluation of nausea with vomiting. The patient reports that her vomiting started yesterday, she did not experience any inciting events nor recent illness or fever. She states that her nausea and vomiting seems to come in waves, she has had some discomfort in her throat after vomiting but denies chest pain, abdominal pain. She has not had any aspiration or coughing, states that she does take some nutrition through her mouth but has not given herself feeds nor EN due to her ongoing nausea with vomiting. Received 2 days doses of Zofran at the rehab facility without improvement. Reports normal stools, last bowel movement today, denies dysuria. Related Data Home Medications ?Medication ?Instructions ?Recorded ?Confirmed atorvastatin 80 mg tablet 80 mg feeding tube QPM 11/18/22 11/16/24 empagliflozin 10 mg tablet 10 mg feeding tube DAILY 11/18/22 11/16/24 (Jardiance) metoprolol succinate 50 mg 25 mg PO BID 11/18/22 11/16/24 tablet,extended release 24 hr sacubitril 24 mg-valsartan 26 mg 1 tab feeding tube DAILY 11/18/22 11/16/24 tablet (Entresto) valproic acid (as sodium salt) 250 300 mg feeding tube TID 11/18/22 11/16/24 mg/5 mL oral solution bupropion HCl 100 mg tablet 300 mg PO DAILY 12/16/22 11/16/24 nystatin 100,000 unit/gram topical 1 applic topical TID PRN 05/03/23 11/16/24 cream pantoprazole 40 mg granules 40 mg G-tube DAILY 05/03/23 11/16/24 delayed-release for susp in packet insulin glargine 100 unit/mL (3 10 unit subcut QPM 05/04/23 11/16/24 mL) subcutaneous pen (Lantus Solostar U-100 Insulin) melatonin 3 mg tablet 9 mg feeding tube HS 05/04/23 11/16/24 ondansetron HCl 4 mg tablet 4 mg feeding tube Q6H PRN 05/08/23 11/16/24 aspirin 81 mg chewable tablet 81 mg feeding tube DAILY #30 tabs 07/05/23 11/16/24 duloxetine 20 mg capsule,delayed 20 mg PO HS 01/24/24 11/16/24 release (Cymbalta) inhalational spacing device (Space #1 ea 04/21/24 11/16/24 Chamber) acetaminophen 500 mg/15 mL oral 1,000 mg feeding tube Q8H PRN 08/29/24 11/16/24 liquid albuterol sulfate 90 mcg/actuation 2 puff inhalation Q4H PRN 08/29/24 11/16/24 aerosol inhaler bisacodyl 10 mg rectal suppository 10 mg SD DAILY PRN 08/29/24 11/16/24 folic acid 1 mg tablet 1 mg feeding tube DAILY 08/29/24 11/16/24 quetiapine 100 mg tablet 300 mg feeding tube DAILY 08/29/24 11/16/24 cyclobenzaprine 5 mg tablet 5 mg PO TID PRN muscle spasm #30 11/19/24 tabs Previous Rx's ?Medication ?Instructions ?Recorded aspirin 81 mg chewable tablet 81 mg feeding tube DAILY #30 tabs 07/05/23 inhalational spacing device (Space #1 ea 04/21/24 Chamber) cyclobenzaprine 5 mg tablet 5 mg PO TID PRN muscle spasm #30 11/19/24 tabs Allergies Allergy/AdvReac Type Severity Reaction Status Date / Time metformin AdvReac Unknown Diarrhea Verified 11/16/24 15:41 meperidine AdvReac gi upset Verified 11/16/24 15:41 General Stated Complaint: Nausea/Vomit/Diar ASHANTI: 3 Exam Narrative Exam Narrative: Gen: Awake and alert, in no apparent distress HEENT: Non-icteric sclera Neck: Supple Lungs: No apparent respiratory distress, normal respiratory effort. Lung sounds clear and equal bilaterally without wheezes, rhonchi, rales CV: Appears well perfused, heart with regular rate and rhythm, strong distal pulses Abdomen: Non-distended, soft, nontender to palpation without rigidity, rebound, or guarding. PEG tube in place without surrounding concerning skin and soft tissue changes MSK: Moves 4 extremities without apparent limitation in ROM Skin: Visualized skin without rashes, cyanosis. Neuro: Normal Gait, no obvious focal deficits or facial asymmetry. Speaks in full, clear sentences. Psych: Appropriate for situation. Course Vital Signs Vital signs: Vital Signs Temperature 36.6 C 12/30/24 19:23 Pulse 88 12/30/24 19:23 Respiratory Rate 20 12/30/24 19:23 Blood Pressure 189/84 H 12/30/24 19:23 Pulse Oximetry 97 12/30/24 19:23 Temperature 36.6 C 12/30/24 19:28 Temperature Source Oral 12/30/24 19:23 Pulse 88 12/30/24 19:28 Respiratory Rate 20 12/30/24 19:28 Blood Pressure 189/84 H 12/30/24 19:28 Blood Pressure Position Sitting 12/30/24 19:23 Pulse Oximetry 97 12/30/24 19:28 Oxygen Delivery Method Room Air 12/30/24 19:23 Oxygen Flow Rate 0 12/30/24 19:23 Pain Level 0 12/30/24 19:28 Medical Decision Making This is a 64-year-old female patient presenting for evaluation of nausea with vomiting. My differential includes, but is not limited to, esophageal stenosis/stricture, gastritis/PUD, gastroenteritis, pancreatitis, cholecystitis and gallbladder pathology, hepatitis, diverticulitis, small bowel obstruction. Status post appendectomy. Considered urinary pathology including UTI, nephrolithiasis. Considered mesenteric ischemia, aortic pathology, though this is less concerning based on the patient's history and physical exam. Considered electrolyte derangement, kidney injury and dehydration. We will obtain an EKG to evaluate her QTc prior to antiemetic administration. She will receive a liter of IV fluids, and will obtain labs to include CBC, CMP, magnesium, troponin, lipase, lactate, and urinalysis. I will obtain a CT of the abdomen pelvis. - I reviewed the patient's laboratory studies, I noted very mild leukocytosis to 12.5, with evidence of hemoconcentration with an elevation in her hemoglobin to 16.5. Lactate was elevated initially to 3.9. Chemistry panel with an elevated BUN and creatinine slightly above her baseline, at 33 and 1.2. No evidence of liver dysfunction. Troponin was negative and without interval increase at 1 hour delta recheck. Lipase is low. QTc was prolonged at 490 ms, the patient's EKG otherwise shows no evidence of arrhythmia, ischemia, or ectopy. For this reason I provided the patient with a dose of Ativan for her nausea, and we vented her PEG tube to allow 550 cc of fluid to drain spontaneously and reduce pressure. After IV fluids the patient's lactate is noted to decrease to 2.9. CT scan reviewed by myself, showing dilation of the stomach unchanged from priors, no evidence for bowel obstruction, ischemia, or other acute abnormality to explain her symptoms. The patient was observed in the emergency department for some time, and had resolution of her nausea. She was able to tolerate oral fluids without recurrence of nausea and vomiting and I am reassured to see that she is maintaining her hydration at this time. I did offer admission to this patient given her MARILIN and lactate elevation, as I am hesitant to provide her with another large fluid bolus given her history of CHF. However, the patient reports that she feels so improved that she is preferring to be discharged back to her care facility. As she has the ability to receive her medications and be monitored in that setting I feel that this is not an unreasonable decision, though we did discuss return precautions at length. Given her generalized weakness, decreased hydration and need for ongoing monitoring the patient will be transported back to her facility by EMS, and at this time, the patient has had a full medical evaluation and is safe for discharge to home. They are hemodynamically stable, ambulatory, and tolerating PO. They are understanding of the follow-up plan and return precautions. They left our facility without incident. Gaby Houston MD Quality:SDOH Health Related Social Needs: Health related social needs material hardship lonely/isolated Health related social needs details Patient currently lives at [facility] with her . PFSH All Active Problems (Updated 12/30/24 @ 22:30 by Gaby Houston MD) MARILIN (acute kidney injury) (Acute) Acute dehydration (Acute) Nausea & vomiting (Acute) S/P percutaneous endoscopic gastrostomy (PEG) tube placement (Acute) Acute exacerbation of chronic obstructive pulmonary disease (Acute) Left lower lobe pneumonia (Acute) Medical History COPD (chronic obstructive pulmonary disease) with acute bronchitis Insulin dependent type 2 diabetes mellitus HFrEF (heart failure with reduced ejection fraction) Pre-op evaluation Abnormal chest xray H/O: pneumonia Drug-induced parkinsonism Neuroleptic induced parkinsonism Tubular adenoma (~06/10/21) Hyperplastic colon polyp (~06/10/21) Erosive esophagitis Esophageal ulcer with bleeding Farrell's esophagus Chronic diarrhea Black tarry stools Pleural effusion Leukocytosis Ventral hernia Cholelithiasis Atrial flutter Diabetes Bipolar 1 disorder Depression COVID Acute respiratory failure with hypoxia Acute on chronic respiratory failure with hypoxia Lab test positive for detection of COVID-19 virus Gastrostomy tube obstruction Aspiration pneumonia Pneumonitis Acute respiratory failure with hypoxia and hypercarbia Myocardial injury COPD with acute exacerbation NSTEMI (non-ST elevated myocardial infarction) Per pt. states she did not have a heart attack Bronchiolitis Acute on chronic respiratory failure with hypoxia and hypercapnia Hypotension Vitamin D deficiency Esophageal stricture Chronic systolic (congestive) heart failure Aspiration pneumonia Stress-induced cardiomyopathy acute onset [place] [facility] [place] press[place], EF 25%, has since recovered RH Acute cardiogenic pulmonary edema Acute metabolic encephalopathy Bilateral pneumonia Hypokalemia Closed fracture of neck of left femur s/p Percutaneous Screw Fixation 08/09/22 Constipation Diabetes mellitus type 2 in obese Chronic iron deficiency anemia ETOH abuse Chronic pancreatitis due to acute alcohol intoxication Alcohol abuse Per pt. states she has never had an issues with any subtances History of pilonidal cyst Anxiety Surgical History PEG (percutaneous endoscopic gastrostomy) status Status post hip surgery History of total left hip arthroplasty (01/19/23) S/P laparoscopic procedure cyst removed from stomach per patient S/P surgical removal of pilonidal cyst History of esophagogastroduodenoscopy (EGD) (~06/10/21) History of colonoscopy with polypectomy (~06/10/21) History of hysterectomy History of tonsillectomy History of section Family History Father Hypertension Diabetes Heart disease Social History Smoking/Tobacco Use Status: Former Tobacco Use Quit Date: 02/07/21 Smoking risk assessment performed?: Yes Alcohol Intake: never Drug use: Never Substance use type: does not use Household members: spouse Housing: custodial Number of Children: 2 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
[2024-12-30] MEDS: Normal Saline 1,000 ML 1000 ML IV (20:05)
[2024-12-30 20:12] LABS: Abs Immature Grans 0.08 10^3/uL (0.0-0.06); HCT 51.7 % (36.0-46.0); HGB 16.5 g/dL (11.2-15.7); Immature Grans % 0.6 %; MCH 27.8 pg (27.0-33.0); MCHC 31.9 % (32.0-36.0); MCV 87 fL (80-95); MPV 11.4 fL (8.0-11.0); Platelet Count 242 10^3/uL (130-400); RBC 5.93 10^6/uL (3.93-5.22); RDW 15.9 % (11.7-14.6); RDW-SD 49.0 fL; WBC 12.50 10^3/uL (4.4-10.8)
[2024-12-30] MEDS: LORazepam 20 MG/10 ML VIAL IVP (20:26)
[2024-12-30 20:31] LABS: ALT 29 U/L (14-59); AST 26 U/L (15-37); Albumin 3.5 g/dL (3.4-5.0); Alkaline Phosphatase 130 U/L (46-116); Anion Gap 16.2 mmol/L (3-11); BUN 33 mg/dL (7-18); Bilirubin, Total 0.9 mg/dL (0.2-1.0); CO2 25.8 mmol/L (21.0-32.0); Calcium 10.5 mg/dL (8.5-10.1); Chloride 99 mmol/L (98-107); Estimated GFR 50.55 (mL/min/1.73m2); Glucose 188 mg/dL (74-106); Lipase 13 U/L (<78); Magnesium 2.0 mg/dL (1.8-2.4); Potassium 4.4 mmol/L (3.5-5.1); Sodium 141 mmol/L (136-145); Total Protein 8.1 g/dL (6.4-8.2); Troponin I 6 ng/L (<or=51)
[2024-12-30] MEDS: Normal Saline Flush 10 ML SYR IVP (20:37)
[2024-12-30] MEDS: Normal Saline - Diluent 50 ML VIAL IJ (20:37)
[2024-12-30] MEDS: Omnipaque 350 MG/ML 100 ML BTL IJ (20:37)
--- NOTE | 2024-12-30 22:01 | DI.VRAD_ITS ---
PROCEDURE INFORMATION: Exam: CT Abdomen And Pelvis With Contrast Exam date and time: 12/30/2024 8:29 PM Age: 64 years old Clinical indication: Nausea and vomiting; Prior surgery; Surgery date: 6+ months; Surgery type: HX peg for esoph. Stenosis; Additional info: N/v, HX peg for esoph. Stenosis TECHNIQUE: Imaging protocol: Computed tomography of the abdomen and pelvis with contrast. Total images: 514 Contrast material: OMNI 350; Contrast volume: 75 ml; Contrast route: INTRAVENOUS (IV); COMPARISON: CT CHEST PE ABD PELVIS W 11/16/2024 3:52 PM FINDINGS: Lungs: Lung bases unremarkable. Diaphragm: Moderate hiatal hernia. Liver: 1 cm right hepatic cyst. Gallbladder and biliary ducts: No definite gallbladder wall thickening, gallstone or biliary dilatation. Pancreas: No mass or peripancreatic stranding. Spleen: No splenomegaly or splenic nodule. Adrenal glands: No adrenal nodule. Kidneys and ureters: No renal mass. No hydronephrosis. No renal or ureteral calculi. Stomach and bowel: Fluid distended stomach. PEG in place. Significant fecal loading. No bowel wall thickening or dilatation. Appendix: No evidence of appendicitis. Intraperitoneal space: No free air or free fluid. Vasculature: No abdominal aortic aneurysm. Lymph nodes: No significant adenopathy. Urinary bladder: No definite bladder wall thickening or stone. Reproductive: No significant finding. Bones/joints: Bilateral hip replacements. Soft tissues: No significant finding, IMPRESSION: 1. No acute intra-abdominal finding. 2. Fluid distended stomach and duodenum not dissimilar to the prior study.. Dictated and Authenticated by: Noe Donnelly MD. Orderin [facility]. Wilver Griffin MD
[2024-12-30 22:15] LABS: Troponin I 9 ng/L (<or=51)
== END 2024-12-30 22:38 | disposition home or self-care (01) ==
PROVIDERS: Emergency Provider Emergency Medicine; PCP Nurse Practitioner Family
DX: M54.9 Dorsalgia, unspecified (principal); R11.10 Vomiting, unspecified
CPT/HCPCS: 99285; 99284; 36415; 96374; 80053; 83690; 93005; 96361; 74177; 83605; 83735; 84484; 85025; 93010; J2060; J3490

== ENCOUNTER 2024-12-30 23:52 | Emergency (ER) | payer MEDICAID, SELFPAY ==
--- NOTE | 2024-12-30 23:59 | W.ED.GENAD ---
Discharge Plan Disposition Patient Disposition: Residential Facility(SNF) Condition: Good Discharge Details Clinical Impression: Back pain Primary Care Provider: Ana Gillespie ED Provider: Aiden Redman Meds and New Rx's Prescriptions: Continued bupropion HCl 100 mg tablet 300 mg PO DAILY Patient Comments: via g-tube, per pcp ov notes 12/09/22 [facility] duloxetine [Cymbalta] 20 mg capsule,delayed release(DR/EC) 20 mg PO HS Patient Comments: TAKE 1 CAPSULE PER DAY VIA G-TUBE IN THE EVENING sacubitril-valsartan [Entresto] 24-26 mg tablet 1 tab feeding tube DAILY Patient Comments: via g-tube Jardiance 10 mg tablet 10 mg feeding tube DAILY atorvastatin 80 mg tablet 80 mg feeding tube QPM valproic acid (as sodium salt) 250 mg/5 mL solution 300 mg feeding tube TID Rx Instructions: 6mls TID metoprolol succinate 50 mg tablet extended release 24 hr 25 mg PO BID Rx Instructions: Given via G-tube aspirin 81 mg tablet,chewable 81 mg feeding tube DAILY Qty: 30 0RF bisacodyl 10 mg suppository 10 mg NC DAILY PRN quetiapine 100 mg tablet 300 mg feeding tube DAILY folic acid 1 mg Tablet 1 mg feeding tube DAILY albuterol sulfate 90 mcg/actuation HFA aerosol inhaler 2 puff inhalation Q4H PRN acetaminophen 500 mg/15 mL liquid 1,000 mg feeding tube Q8H PRN pantoprazole [address] for susp in packet 40 mg G-tube DAILY Patient Comments: Take 1 packet via g-tube twice a day Administer in 10 mL of apple juice via g-tub, then follow with another 10 mL. nystatin 100,000 unit/gram cream 1 applic TOPICAL TID PRN Patient Comments: APPLY A SMALL AMOUNT TO AFFECTED AREA(S) ON BUTTOCKS THREE TIMES A DAY NEEDED melatonin 3 mg tablet 9 mg feeding tube HS Patient Comments: TAKE THREE TABLETS VIA G-TUBE EVERY NIGHT DIRECTED insulin glargine [Lantus Solostar U-100 Insulin] 100 unit/mL (3 mL) insulin pen 10 unit SUBCUT QPM Patient Comments: INJECT 10 UNITS UNDER THE SKIN NIGHTLY DIRECTED ondansetron HCl 4 mg tablet 4 mg feeding tube Q6H PRN Patient Comments: TAKE ONE TABLET VIA G-TUBE EVERY 8 HOURS NEEDED (DME) Space Chamber Spacer See Rx Instructions .Route Qty: 1 0RF Rx Instructions: As directed cyclobenzaprine 5 mg tablet 5 mg PO TID PRN (Reason: muscle spasm) Qty: 30 0RF Discharge Instructions Additional Instructions: You were seen in the ED after developing back pain on return to ECF. You were treated with Toradol and Robaxin as this appears to be musculoskeletal in nature. We did check a urine which was negative. Return to ED for any severe worsening pain, fever, persistent vomiting, other concerns. HPI General Mode of arrival: EMS. Date/Time Provider Initiated Documentation: 12/30/24 23:53. Limitations to Documentation: no limitations. Information obtained by: patient, RN/MD and RN notes reviewed. HPI Narrative: Patient returns to ED from ECF shortly after discharge from here earlier. Patient had initially presented here due to nausea and vomiting. I did speak with the provider who cared for her. Patient was found to have very mild MARILIN and a little bit of lactic acidosis. She was treated with antiemetic and fluids. Laboratory studies and CT scan of the abdomen pelvis were otherwise fine. Patient was not complaining of any type of back pain at discharge. Patient reporting that when she returned to the ECF she developed back pain. Initially we are told that it was all low back pain. Now she is telling me its her entire back both sides up and down. It is worse with movement. She did receive medication at the ECF with no improvement and was sent back for evaluation. At this time she is denying any type of chest pain, abdominal pain, nausea/vomiting. Related Data Home Medications ?Medication ?Instructions ?Recorded ?Confirmed atorvastatin 80 mg tablet 80 mg feeding tube QPM 11/18/22 12/31/24 empagliflozin 10 mg tablet 10 mg feeding tube DAILY 11/18/22 12/31/24 (Jardiance) metoprolol succinate 50 mg 25 mg PO BID 11/18/22 12/31/24 tablet,extended release 24 hr sacubitril 24 mg-valsartan 26 mg 1 tab feeding tube DAILY 11/18/22 12/31/24 tablet (Entresto) valproic acid (as sodium salt) 250 300 mg feeding tube TID 11/18/22 12/31/24 mg/5 mL oral solution bupropion HCl 100 mg tablet 300 mg PO DAILY 12/16/22 12/31/24 nystatin 100,000 unit/gram topical 1 applic topical TID PRN 05/03/23 12/31/24 cream pantoprazole 40 mg granules 40 mg G-tube DAILY 05/03/23 12/31/24 delayed-release for susp in packet insulin glargine 100 unit/mL (3 10 unit subcut QPM 05/04/23 12/31/24 mL) subcutaneous pen (Lantus Solostar U-100 Insulin) melatonin 3 mg tablet 9 mg feeding tube HS 05/04/23 12/31/24 ondansetron HCl 4 mg tablet 4 mg feeding tube Q6H PRN 05/08/23 12/31/24 aspirin 81 mg chewable tablet 81 mg feeding tube DAILY #30 tabs 07/05/23 12/31/24 duloxetine 20 mg capsule,delayed 20 mg PO HS 01/24/24 12/31/24 release (Cymbalta) inhalational spacing device (Space #1 ea 04/21/24 12/31/24 Chamber) acetaminophen 500 mg/15 mL oral 1,000 mg feeding tube Q8H PRN 08/29/24 12/31/24 liquid albuterol sulfate 90 mcg/actuation 2 puff inhalation Q4H PRN 08/29/24 12/31/24 aerosol inhaler bisacodyl 10 mg rectal suppository 10 mg NC DAILY PRN 08/29/24 12/31/24 folic acid 1 mg tablet 1 mg feeding tube DAILY 08/29/24 12/31/24 quetiapine 100 mg tablet 300 mg feeding tube DAILY 08/29/24 12/31/24 cyclobenzaprine 5 mg tablet 5 mg PO TID PRN muscle spasm #30 11/19/24 12/31/24 tabs Previous Rx's ?Medication ?Instructions ?Recorded aspirin 81 mg chewable tablet 81 mg feeding tube DAILY #30 tabs 07/05/23 inhalational spacing device (Space #1 ea 04/21/24 Chamber) cyclobenzaprine 5 mg tablet 5 mg PO TID PRN muscle spasm #30 11/19/24 tabs Allergies Allergy/AdvReac Type Severity Reaction Status Date / Time metformin AdvReac Unknown Diarrhea Verified 11/16/24 15:41 meperidine AdvReac gi upset Verified 11/16/24 15:41 General ASHANTI: 3 Exam Narrative Exam Narrative: Const: WDWN female in NAD. VS per triage. HEENT: NC/AT. Normal facial exam. Neck: Supple. Trachea midline. Lungs: Normal respiratory effort. Lungs are clear. Cor: RRR without murmur. Good radial pulses. GI: Soft/ND/NT. Neuro: A+O x 3. Normal speech, mentation, gait. Cranial nerves II - XII grossly intact. No gross motor or sensory deficit. Back: No midline tenderness. No CVAT. Medical Decision Making Patient returns to ED after a recent discharge. Her workup prior was related to nausea and vomiting. A CT scan of the abdomen pelvis was obtained. I have reviewed the read which is unremarkable. She had mild MARILIN and a mild lactic acidosis otherwise unremarkable labs. Pain is worse with movement and may be musculoskeletal in nature from prolonged visit here in the ED on our stretchers. She did receive acetaminophen and cyclobenzaprine. Urine was not checked though I do not suspect this is pyelonephritis, we will obtain a urinalysis. Will give IM ketorolac and oral Robaxin and reevaluate. 02:30 - Patient has been sleeping since IM ketorolac and oral Robaxin. Again suspect this is likely musculoskeletal related to prolonged stay here in ED on our stretcher. I am still waiting for urinalysis to rule out possibility of pyelonephritis. Assuming this is negative she will be discharged back to ECF to resume previous medication and management. 06:15 - Patient finally able to provide urine sample which is negative. Has been able to sleep after being medicated. Will plan discharge back to ECF. Lab Data Lab results reviewed: Yes I reviewed the patient's lab results. Quality:SDOH Health Related Social Needs: Health related social needs material hardship lonely/isolated Health related social needs details Patient currently lives at [facility] with her . PFSH All Active Problems (Updated 12/31/24 @ 06:19 by Aiden Redman MD) Back pain (Acute) MARILIN (acute kidney injury) (Acute) Acute dehydration (Acute) Nausea & vomiting (Acute) S/P percutaneous endoscopic gastrostomy (PEG) tube placement (Acute) Acute exacerbation of chronic obstructive pulmonary disease (Acute) Left lower lobe pneumonia (Acute) Medical History COPD (chronic obstructive pulmonary disease) with acute bronchitis Insulin dependent type 2 diabetes mellitus HFrEF (heart failure with reduced ejection fraction) Pre-op evaluation Abnormal chest xray H/O: pneumonia Drug-induced parkinsonism Neuroleptic induced parkinsonism Tubular adenoma (~06/10/21) Hyperplastic colon polyp (~06/10/21) Erosive esophagitis Esophageal ulcer with bleeding Farrell's esophagus Chronic diarrhea Black tarry stools Pleural effusion Leukocytosis Ventral hernia Cholelithiasis Atrial flutter Diabetes Bipolar 1 disorder Depression COVID Acute respiratory failure with hypoxia Acute on chronic respiratory failure with hypoxia Lab test positive for detection of COVID-19 virus Gastrostomy tube obstruction Aspiration pneumonia Pneumonitis Acute respiratory failure with hypoxia and hypercarbia Myocardial injury COPD with acute exacerbation NSTEMI (non-ST elevated myocardial infarction) Per pt. states she did not have a heart attack Bronchiolitis Acute on chronic respiratory failure with hypoxia and hypercapnia Hypotension Vitamin D deficiency Esophageal stricture Chronic systolic (congestive) heart failure Aspiration pneumonia Stress-induced cardiomyopathy acute onset managed at [facility] [place] 08/30 pressors, EF 25%, has since recovered RH Acute cardiogenic pulmonary edema Acute metabolic encephalopathy Bilateral pneumonia Hypokalemia Closed fracture of neck of left femur s/p Percutaneous Screw Fixation 08/09/22 Constipation Diabetes mellitus type 2 in obese Chronic iron deficiency anemia ETOH abuse Chronic pancreatitis due to acute alcohol intoxication Alcohol abuse Per pt. states she has never had an issues with any subtances History of pilonidal cyst Anxiety Surgical History PEG (percutaneous endoscopic gastrostomy) status Status post hip surgery History of total left hip arthroplasty (01/19/23) S/P laparoscopic procedure cyst removed from stomach per patient S/P surgical removal of pilonidal cyst History of esophagogastroduodenoscopy (EGD) (~06/10/21) History of colonoscopy with polypectomy (~06/10/21) History of hysterectomy History of tonsillectomy History of section Family History Father Hypertension Diabetes Heart disease Social History Smoking/Tobacco Use Status: Former Tobacco Use Quit Date: 02/07/21 Smoking risk assessment performed?: Yes Alcohol Intake: never Drug use: Never Substance use type: does not use Household members: spouse Housing: [facility] Number of Children: 2 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
[2024-12-31 00:02] VITALS: BP 125/64; PULSE 82; RESP 20; TEMP 35.9; O2SAT 96
[2024-12-31] MEDS: Ketorolac 30 MG/ML VIAL IM (00:33)
[2024-12-31] MEDS: Methocarbamol 500 MG TAB 1000 MG PO (00:33)
[2024-12-31 06:10] LABS: Glucose >=1000 mg/dL (Negative)
[2024-12-31 06:15] LABS: C & S Indicated? No; RBC 0-2 HPF (0-2); WBC 0-2 HPF (0-5)
== END 2024-12-31 07:42 | disposition skilled nursing facility (03) ==
PROVIDERS: Emergency Provider Emergency Medicine; PCP Nurse Practitioner Family
DX: Z59.87 Material hardship due to limited financial resources, not elsewhere classified; Z60.8 Other problems related to social environment; M54.50 Low back pain, unspecified
CPT/HCPCS: 99283; 99284; 96372; 81003; 81015; J1885

== ENCOUNTER 2024-12-31 22:45 | Inpatient (IN) | payer MEDICAID, SELFPAY ==
[2024-12-31] VITALS (14 sets, daily range): BP systolic 48–122; BP diastolic 25–96; PULSE 106–227; RESP 20–47; TEMP 36.2; O2SAT 83–90
--- NOTE | 2024-12-31 22:39 | W.ED.GENAD ---
Discharge Plan Disposition Patient Disposition: Admit to [facility] Condition: Serious Discharge Details Clinical Impression: Pneumothorax on right, Pleural effusion on right, MARILIN (acute kidney injury) Primary Care Provider: Ana Gillespie ED Provider: Aiden Redman Curtiss Medvirgen and New Rx's Prescriptions: No Action bupropion HCl 100 mg tablet 300 mg PO DAILY Patient Comments: via g-tube, per pcp ov notes 12/09/22 RH duloxetine [Cymbalta] 20 mg capsule,delayed release(DR/EC) 20 mg PO HS Patient Comments: TAKE 1 CAPSULE PER DAY VIA G-TUBE IN THE EVENING sacubitril-valsartan [Entresto] 24-26 mg tablet 1 tab feeding tube DAILY Patient Comments: via g-tube Jardiance 10 mg tablet 10 mg feeding tube DAILY atorvastatin 80 mg tablet 80 mg feeding tube QPM valproic acid (as sodium salt) 250 mg/5 mL solution 300 mg feeding tube TID Rx Instructions: 6mls TID metoprolol succinate 50 mg tablet extended release 24 hr 25 mg PO BID Rx Instructions: Given via G-tube aspirin 81 mg tablet,chewable 81 mg feeding tube DAILY Qty: 30 0RF bisacodyl 10 mg suppository 10 mg AK DAILY PRN quetiapine 100 mg tablet 300 mg feeding tube DAILY folic acid 1 mg Tablet 1 mg feeding tube DAILY albuterol sulfate 90 mcg/actuation HFA aerosol inhaler 2 puff inhalation Q4H PRN acetaminophen 500 mg/15 mL liquid 1,000 mg feeding tube Q8H PRN pantoprazole [address] for susp in packet 40 mg G-tube DAILY Patient Comments: Take 1 packet via g-tube twice a day Administer in 10 mL of apple juice via g-tub, then follow with another 10 mL. nystatin 100,000 unit/gram cream 1 applic TOPICAL TID PRN Patient Comments: APPLY A SMALL AMOUNT TO AFFECTED AREA(S) ON BUTTOCKS THREE TIMES A DAY NEEDED melatonin 3 mg tablet 9 mg feeding tube HS Patient Comments: TAKE THREE TABLETS VIA G-TUBE EVERY NIGHT DIRECTED insulin glargine [Lantus Solostar U-100 Insulin] 100 unit/mL (3 mL) insulin pen 10 unit SUBCUT QPM Patient Comments: INJECT 10 UNITS UNDER THE SKIN NIGHTLY DIRECTED ondansetron HCl 4 mg tablet 4 mg feeding tube Q6H PRN Patient Comments: TAKE ONE TABLET VIA G-TUBE EVERY 8 HOURS NEEDED (DME) Space Chamber Spacer See Rx Instructions .Route Qty: 1 0RF Rx Instructions: As directed cyclobenzaprine 5 mg tablet 5 mg PO TID PRN (Reason: muscle spasm) Qty: 30 0RF HPI General Mode of arrival: EMS. Date/Time Provider Initiated Documentation: 12/31/24 22:50. Limitations to Documentation: altered mental status. Information obtained by: patient, RN/MD, RN notes reviewed and old records reviewed. HPI Narrative: Patient sent to ED by ambulance for difficulty breathing. Patient was seen here yesterday twice. Initial visit was for abdominal pain and vomiting with pretty unremarkable workup except for mild MARILIN. Vomiting resolved and she was feeling better and requested discharge back to [facility]. She returned from [facility] about 60 to 90 minutes after discharge now with complaint of back pain for which I saw her for. Seem to be musculoskeletal in nature mostly involving mid to lower back. Treated with NSAID and muscle relaxer with relief. Sent over tonight with respiratory distress and tachycardia. Patient seems somewhat altered but reports shortness of breath began this afternoon. She denies any pain anywhere. She is tachycardic, tachypneic with low saturations. Nurse to nurse report from F was given and patient apparently tested positive for Legionella today. Related Data Home Medications ?Medication ?Instructions ?Recorded ?Confirmed atorvastatin 80 mg tablet 80 mg feeding tube QPM 11/18/22 12/31/24 empagliflozin 10 mg tablet 10 mg feeding tube DAILY 11/18/22 12/31/24 (Jardiance) metoprolol succinate 50 mg 25 mg PO BID 11/18/22 12/31/24 tablet,extended release 24 hr sacubitril 24 mg-valsartan 26 mg 1 tab feeding tube DAILY 11/18/22 12/31/24 tablet (Entresto) valproic acid (as sodium salt) 250 300 mg feeding tube TID 11/18/22 12/31/24 mg/5 mL oral solution bupropion HCl 100 mg tablet 300 mg PO DAILY 12/16/22 12/31/24 nystatin 100,000 unit/gram topical 1 applic topical TID PRN 05/03/23 12/31/24 cream pantoprazole 40 mg granules 40 mg G-tube DAILY 05/03/23 12/31/24 delayed-release for susp in packet insulin glargine 100 unit/mL (3 10 unit subcut QPM 05/04/23 12/31/24 mL) subcutaneous pen (Lantus Solostar U-100 Insulin) melatonin 3 mg tablet 9 mg feeding tube HS 05/04/23 12/31/24 ondansetron HCl 4 mg tablet 4 mg feeding tube Q6H PRN 05/08/23 12/31/24 aspirin 81 mg chewable tablet 81 mg feeding tube DAILY #30 tabs 07/05/23 12/31/24 duloxetine 20 mg capsule,delayed 20 mg PO HS 01/24/24 12/31/24 release (Cymbalta) inhalational spacing device (Space #1 ea 04/21/24 12/31/24 Chamber) acetaminophen 500 mg/15 mL oral 1,000 mg feeding tube Q8H PRN 08/29/24 12/31/24 liquid albuterol sulfate 90 mcg/actuation 2 puff inhalation Q4H PRN 08/29/24 12/31/24 aerosol inhaler bisacodyl 10 mg rectal suppository 10 mg AK DAILY PRN 08/29/24 12/31/24 folic acid 1 mg tablet 1 mg feeding tube DAILY 08/29/24 12/31/24 quetiapine 100 mg tablet 300 mg feeding tube DAILY 08/29/24 12/31/24 cyclobenzaprine 5 mg tablet 5 mg PO TID PRN muscle spasm #30 11/19/24 12/31/24 tabs Previous Rx's ?Medication ?Instructions ?Recorded aspirin 81 mg chewable tablet 81 mg feeding tube DAILY #30 tabs 07/05/23 inhalational spacing device (Space #1 ea 04/21/24 Chamber) cyclobenzaprine 5 mg tablet 5 mg PO TID PRN muscle spasm #30 11/19/24 tabs Allergies Allergy/AdvReac Type Severity Reaction Status Date / Time metformin AdvReac Unknown Diarrhea Verified 11/16/24 15:41 meperidine AdvReac gi upset Verified 11/16/24 15:41 General ASHANTI: 3 Exam Narrative Exam Narrative: Const: WDWN female with tachypnea and some respiratory distress. VS per triage. HEENT: NC/AT. Normal facial exam. Neck: Supple. Trachea midline. Lungs: Decreased breath sounds on the right side throughout. Left side clear with good air movement. Cor: Tachycardic and regular. Good radial pulses. GI: Soft/ND Neuro: Awake, alert, conversant but seems somewhat altered. Cranial nerves II - XII grossly intact. No gross motor or sensory deficit. Procedure Chest Tube Chest Tube 1: Date of Procedure: 12/31/24 Time of Procedure: 23:00 Provider that performed the procedure: Aiden Redman Indication: Pneumothrox Patient Consented: Emergent Case Local anesthetic: Lidocaine 1% and with Epi Amount of anesthesia used (mL): 10 Chest Tube Location: mid axillary line Type of Chest Tube: Pigtail Catheter 14F Chest Tube Procedure: betadine prep and sterile drapes applied Incision made with: #11 blade Post procedure chest tube: sutured to skin and sterile dressing applied Amount of initial drainage (mL): 1,100 Post Procedure CXR?: Yes Patient tolerated procedure chest tube: Yes Medical Decision Making Patient arrives to ED from [facility] with tachycardia, tachypnea, hypoxemia in the setting of positive Legionella test reported today. Yesterday she had no complaints of shortness of breath and an unremarkable abdominal pelvic CT scan that included the lung bases. On exam she has essentially normal breath sounds on the right. Immediately called for portable chest x-ray which confirmed a hydropneumothorax on the right. Does appear to have a small effusion on the left as well. Densities noted in the bases. I did explain to the patient why she was having difficulty breathing and what procedure needed to be done. She did agree to same though again I do think she is somewhat altered at this time. However, given the abnormal vital signs and hypoxemia despite oxygen this required immediate attention. Please see procedure note. A pigtail catheter was placed on the right in the midaxillary line with drainage of cloudy, yellow fluid approximately 1100 mL. Repeat portable chest x-ray still shows pneumothorax present but hydrothorax smaller, chest tube in adequate position. Expect pneumothorax to recover over time. Once chest tube placed IV access was obtained by medic with use of ultrasound. Patient started on fluids. She was ordered for IV Zosyn, vancomycin, azithromycin. Laboratory studies, EKG all obtained. EKG shows a sinus tachycardia with nonspecific ST changes, no acute elevation or depression. Patient's laboratory studies tonight show a normal white count. Hemoglobin remains high, tonight at 18.2. Platelets are normal. VBG is significant for metabolic acidosis with a pH of 7.24, pCO2 46, lactic acid of 4.7. Chemistry significant for hyponatremia and MARILIN with a creatinine now at 3. Potassium and magnesium are okay. Liver function also okay. Initial troponin normal at 20. Gram stain of the fluid removed from the chest cavity shows many white blood cells and moderate gram-positive cocci. After pigtail chest tube placement and fluid resuscitation patient oxygenation has gone up, heart rate has come down and breathing is much more normal. She will need continued fluid resuscitation. Chest tube remains on Pleur-evac. Case discussed with hospitalist. Patient to be admitted to ICU for further management. Per [facility] records she is a full code. Medical Records Medical records reviewed: Yes I reviewed the patient's medical records. Imaging Data Radiologic Study: Attestation: I personally reviewed and interpreted this imaging study as follows: Imaging: X-Ray Lab Data Lab results reviewed: Yes I reviewed the patient's lab results. ECG Data Attestation: I personally reviewed and interpreted this ECG (s) as follows: Prior ECG tracings: available for review Quality:SDOH Health Related Social Needs: Health related social needs material hardship lonely/isolated Health related social needs details Patient currently lives at [facility] with her . Critical Care Time Critical Care Time Critical Care Time: Yes Total Critical Care Time: 60 Attestation: Upon my evaluation, this patient had a high probability of imminent or life-threatening deterioration, which required my direct attention, intervention, and personal management. I have personally provided 60 minutes of critical care time exclusive of time spent on separately billable procedures. Time includes monitoring for potential decompensation, ordering of tests and medications, review of laboratory and radiology results, discussion with consultants and documentation . Interventions were performed as documented above in procedures. [facility] All Active Problems (Updated 01/01/25 @ 01:55 by Aiden Redman MD) MARILIN (acute kidney injury) (Acute) Pleural effusion on right (Acute) Pneumothorax on right (Acute) Back pain (Acute) MARILIN (acute kidney injury) (Acute) Acute dehydration (Acute) Nausea & vomiting (Acute) S/P percutaneous endoscopic gastrostomy (PEG) tube placement (Acute) Acute exacerbation of chronic obstructive pulmonary disease (Acute) Medical History Advanced care planning/counseling discussion Palliative care encounter PEG tube malfunction Dilatation of esophagus COPD (chronic obstructive pulmonary disease) with acute bronchitis Insulin dependent type 2 diabetes mellitus HFrEF (heart failure with reduced ejection fraction) Abnormal chest xray H/O: pneumonia Drug-induced parkinsonism Neuroleptic induced parkinsonism Tubular adenoma (~06/10/21) Hyperplastic colon polyp (~06/10/21) Erosive esophagitis Esophageal ulcer with bleeding Farrell's esophagus Chronic diarrhea Black tarry stools Pleural effusion Leukocytosis Ventral hernia Cholelithiasis Atrial flutter Diabetes Bipolar 1 disorder Depression Gastrostomy tube obstruction Myocardial injury COPD with acute exacerbation NSTEMI (non-ST elevated myocardial infarction) Per pt. states she did not have a heart attack Bronchiolitis Acute on chronic respiratory failure with hypoxia and hypercapnia Hypotension Vitamin D deficiency Esophageal stricture Chronic systolic (congestive) heart failure Aspiration pneumonia Stress-induced cardiomyopathy acute onset managed at [facility] 08/30 pressors, EF 25%, has since recovered RH Acute cardiogenic pulmonary edema Acute metabolic encephalopathy Bilateral pneumonia Hypokalemia Closed fracture of neck of left femur s/p Percutaneous Screw Fixation 08/09/22 Constipation Diabetes mellitus type 2 in obese Chronic iron deficiency anemia ETOH abuse Chronic pancreatitis due to acute alcohol intoxication Alcohol abuse Per pt. states she has never had an issues with any subtances History of pilonidal cyst Anxiety Surgical History History of total right hip replacement (03/01/24) As treatment for R femoral neck fracture PEG (percutaneous endoscopic gastrostomy) status Status post hip surgery History of total left hip arthroplasty (01/19/23) S/P laparoscopic procedure cyst removed from stomach per patient S/P surgical removal of pilonidal cyst History of esophagogastroduodenoscopy (EGD) (~06/10/21) History of colonoscopy with polypectomy (~06/10/21) History of hysterectomy History of tonsillectomy History of section Family History Father Hypertension Diabetes Heart disease Social History Smoking/Tobacco Use Status: Former Tobacco Use Quit Date: 02/07/21 Smoking risk assessment performed?: Yes Alcohol Intake: never Drug use: Never Substance use type: does not use Household members: spouse Housing: retirement Number of Children: 2 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
--- NOTE | 2024-12-31 22:45 | RT.EKG_ITS ---
APPROVED REPORT Exam: Resting ECG Reason for Exam: sepsis Patient Location: E HR:131 bpm ECG Measurements Heart Rate 131 AXIS PA 56 P 36 QRSd 79 QRS 111 QT 371 T -36 QTc 547 Conclusion Sinus tachycardia...rate> 99 Right axis deviation...QRS axis ( 91,269) Low voltage, extremity leads...all extremity leads <0.5mV Nonspecific T abnormalities, inferior leads...T <-0.10mV, II III aVF Prolonged QT interval...QTc >500mS I have reviewed and interpreted ECG and agree with software generated interpretation.
--- NOTE | 2024-12-31 22:45 | DI.RAD_ITS ---
Exam(s) XR PORTABLE CHEST AP EXAM: XR PORTABLE CHEST AP CLINICAL HISTORY: No breath sounds R. TECHNIQUE: 2D digital imaging was performed of the chest. One image was obtained. An AP view was obtained. COMPARISON: CR,RF RF BARIUM SWALLOW from 09/25/[address] ABDOMEN PELVIS W from 12/30/2024 FINDINGS: MEDIASTINUM: Normal. HEART: Normal. PULMONARY VASCULATURE: Normal. LUNGS: Atelectasis of the right lung is noted. There is an infiltrate seen in the left lung base medially. PLEURAL SPACE: There has been interval development of a large right pneumothorax. There is also a large right pleural effusion occupying half of the right hemithorax. There is a small left pleural effusion. BONE:Within normal limits for the patient's age. OTHER FINDINGS:Normal. IMPRESSION: 1. Interval development of a large right pneumothorax. 2. Interval development of bilateral pleural effusions, right greater than left. 3. Bilateral basilar opacities which may represent atelectasis. Pneumonia cannot be entirely excluded. 4. The preliminary [facility] report was reviewed. DATA REPOSITORY: RADIATION DOSE DELIVERED:
--- NOTE | 2024-12-31 22:56 | DI.RAD_ITS ---
Exam(s) XR PORTABLE CHEST AP POST LINE EXAM: XR PORTABLE CHEST AP POST LINE CLINICAL HISTORY: post PTX TECHNIQUE: 2D digital imaging was performed of the chest. One image was obtained. An AP view was obtained. COMPARISON: CR,XR XR PORTABLE CHEST AP from 12/31/2024 FINDINGS: There has been interval placement of a right chest tube. There has been some re-expansion of the right lung however there is persistent large right pneumothorax present. MEDIASTINUM: Normal. HEART: Normal. PULMONARY VASCULATURE: Normal. LUNGS: While there has been some re-expansion of the right lung there is a persistent right basilar atelectasis. There is a persistent opacity in the left lung base. PLEURAL SPACE: There is no left pneumothorax. There are bilateral pleural effusions present. BONE:Within normal limits for the patient's age. OTHER FINDINGS:Normal. IMPRESSION: 1. Interval placement of a right pleural drain. 2. Persistent large right pneumothorax. 3. Persistent bilateral pleural effusions and bilateral basilar opacities. 4. The preliminary [facility] report was reviewed. DATA REPOSITORY: RADIATION DOSE DELIVERED:
--- NOTE | 2024-12-31 23:10 | DI.[facility]_ITS ---
PROCEDURE INFORMATION: Exam: XR Chest Exam date and time: 12/31/2024 10:58 PM Age: 64 years old Clinical indication: Other: No breath sounds R. TECHNIQUE: Imaging protocol: Radiologic exam of the chest. Views: 1 view. COMPARISON: CT CHEST PE ABD PELVIS W 11/16/2024 3:52 PM FINDINGS: Lungs: Dense opacity in the right lower lung likely largely represents atelectasis. Similar less pronounced findings noted in the left lower lobe. Left mid to upper lung is clear. Pleural spaces: Dense opacity in the right lower chest compatible with [id number] volume pleural fluid. Large (approximately 50%) right pneumothorax. Heart/Mediastinum: Unremarkable. No cardiomegaly. Bones/joints: Unremarkable. IMPRESSION: 1. Large right hydropneumothorax 2. Bilateral lower lobe atelectasis, greater on the right. Underlying pneumonia not excluded. THIS REPORT CONTAINS FINDINGS THAT MAY BE CRITICAL TO PATIENT CARE. The findings were verbally communicated via telephone conference with Gaby Houstno at 11:09 PM EDT on 12/31/2024. The findings were acknowledged and understood. Dictated and Authenticated by: Linwood Hendrickson MD. Orderin St. Wilver Griffin MD
--- NOTE | 2024-12-31 23:43 | DI.[facility]_ITS ---
PROCEDURE INFORMATION: Exam: XR Chest Exam date and time: 12/31/2024 11:36 PM Age: 64 years old Clinical indication: Device placement; Other: Post ptx; Additional info: No breath sounds R. Post ptx TECHNIQUE: Imaging protocol: Radiologic exam of the chest. Views: 1 view. COMPARISON: XR PORTABLE CHEST AP 12/31/2024 10:58 PM FINDINGS: Lungs: Persistent bilateral lower lobe consolidation and/or atelectasis. Left upper lung remains clear. Pleural spaces: There has been interval placement of a right pleural drain. Large right hydropneumothorax appears stable in size. Heart/Mediastinum: Unremarkable. No cardiomegaly. Bones/joints: Unremarkable. IMPRESSION: Interval placement of right pleural drain with stable size of large right hydropneumothorax Dictated and Authenticated by: Linwood Hendrickson MD. Orderin [facility]. Wilver Griffin MD
[2025-01-01] VITALS (72 sets, daily range): BP systolic 44–122; BP diastolic 16–76; PULSE 74–186; RESP 18–41; TEMP 36.3; O2SAT 79–98
[2025-01-01] MEDS: Normal Saline 1,000 ML 125 ML IV (00:21)
[2025-01-01 00:22] LABS: BE (Venous) -8 mmol/L (-2-3); HCO3 (Venous) 20 mmol/L (23-28); O2 Sat (Venous) 44 %; TCO2 (Venous) 17 mmol/L (24-29); pCO2 (Venous) 46 mmHg (41-51); pO2 (Venous) 29 mmHg
[2025-01-01] MEDS: PIPERACILLIN/TAZO 3.375 GM in Normal Saline 50 ML IVPB (00:22)
[2025-01-01 00:26] LABS: Abs Immature Grans 0.07 10^3/uL (0.0-0.06); HCT 56.1 % (36.0-46.0); HGB 18.2 g/dL (11.2-15.7); MCH 27.9 pg (27.0-33.0); MCHC 32.4 % (32.0-36.0); MCV 86 fL (80-95); MPV 11.4 fL (8.0-11.0); Platelet Count 303 10^3/uL (130-400); RBC 6.53 10^6/uL (3.93-5.22); RDW 16.5 % (11.7-14.6); RDW-SD 48.5 fL; WBC 7.14 10^3/uL (4.4-10.8)
[2025-01-01 00:46] LABS: ALT 18 U/L (14-59); AST 18 U/L (15-37); Albumin 3.0 g/dL (3.4-5.0); Alkaline Phosphatase 103 U/L (46-116); Anion Gap 18.8 mmol/L (3-11); BUN 54 mg/dL (7-18); Bilirubin, Total 0.8 mg/dL (0.2-1.0); CO2 20.2 mmol/L (21.0-32.0); Calcium 9.9 mg/dL (8.5-10.1); Chloride 90 mmol/L (98-107); Estimated GFR 16.83 (mL/min/1.73m2); Glucose 269 mg/dL (74-106); Magnesium 1.7 mg/dL (1.8-2.4); Potassium 4.1 mmol/L (3.5-5.1); Sodium 129 mmol/L (136-145); Total Protein 8.2 g/dL (6.4-8.2); Troponin I 20 ng/L (<or=51)
[2025-01-01 01:06] LABS: Immature Grans % 0.0 %
[2025-01-01 01:07] LABS: RBC Morphology Normal
[2025-01-01] MEDS: AZITHROMYCIN 500 MG in Normal Saline 250 ML 250 MG IVPB (01:39)
[2025-01-01] MEDS: VANCOMYCIN 1,500 MG in Normal Saline 500 ML 333.3333 MG IVPB (01:39)
--- NOTE | 2025-01-01 01:41 | W.PM.HP.N ---
Date of service: 01/01/25 Time of Service: 01:00 Assessment and Plan Assessment and plan (1) Sepsis due to pneumonia: Status: Acute Assessment and plan: Septic on presentation with tachycardia, tachypnea, hypotension, lactic acidosis, renal injury Note recent aspiration pneumonia and reported legionella Pleural fluid with Gram positives Antibiotics and fluids started in the ED Continue vancomycin, pip-tazo, azithromycin NS 500 bolus, then increase rate to 200/hr (2) Pneumothorax on right: Status: Acute Assessment and plan: Several possible causes including active PNA, multiple recent aspiration pneumoniae, COPD. Low suspicion of malignancy; will defer Light's criteria calculation at this time Pigtail placed in ED Low continuous suction and incision care 1.1L out, no bolus in ED. Giving NS 500 ml bolus, continue NS @ 200 ml/hr Will consult pulmonology for recommendations (3) Legionella infection: Status: Acute Assessment and plan: Reportedly positive today at home facility Ordered rechecks Continue azithromycin (4) Acute renal failure: Status: Acute Assessment and plan: Normal creatinine baseline December 30 MARILIN noted with creatinine 1.2 This encounter initial creatinine 3.0 Urine ketones seen Dec [address] barba for accurate measurement (5) Metabolic acidosis, increased anion gap: Status: Acute Assessment and plan: Venous pH 7.24, anion gap 18.8 Likely secondary to sepsis and acute renal injury However consider DKA with high urine ketones and glucosuria, despite BG 269, normal K Repeat labs pending BMP q4h (6) Insulin dependent type 2 diabetes mellitus: Assessment and plan: November 23 A1C 10.1 Home regimen basal 10u at bedtime, empagliflozin 10 daily (7) H/O percutaneous endoscopic gastrostomy (PEG): Status: Acute Assessment and plan: High aspiration risk; patient has chosen to continue PO intake Most medications taken via PEG tube (8) Depression: Assessment and plan: Contineu home bupropion, valproate Hold home quetiapine while on azithromycin (9) COPD (chronic obstructive pulmonary disease): Status: Chronic Assessment and plan: Hold home regimen in favor of duonebs (10) (HFpEF) heart failure with preserved ejection fraction: Status: Acute Assessment and plan: History of HFrEF, EF 20% in 2022 Last echo February 2024 showing improved LVEF 59% Continue metoprolol, entresto, statin, empagliflozin History of Present Illness History of Present Illness Chief Complaint: difficulty breathing Narrative: Jennifer Irving is a 64 year old woman presenting December 31 in respiratory distress. She had been seen 24 hours previously for back pain which resolved prior to arrival; she had been discharged about 90 minutes prior for nausea/vomiting with mild MARILIN; her vomiting resolved and she was returned to her facility at her request. On return to the ED she reports difficulty breathing that had started in the afternoon. She is having difficulty answering questions due to confusion. Per report, she had tested positive for Legionella earlier in the day at her facility. The patient denies pain, no chest pain, no abdominal pain, no N/V/D. PMH includes In the ED she was tachycardic to 136 and tachypneic 47, SpO2 86%on 8L by oxymask. Initially she was hypertensive 203/89, but became hypotensive; reported systolics in the 40's not consistent with patient being awake and alert. EKG with sinus tachycardia, QTc prolongation. CXR showed large right hydropneumothorax. Thoracentesis was performed and a pigtail catheter was placed with 1.1L cloudy yellow fluid removed. Repeat CXR showed improving pneumothorax and smaller hydrothorax with tube adequately placed. Initial VBG showed pH 7.24, HCO3 20, CO2 17, lactate 4.7. Initial CBC showed no leukocytosis. H&H elevated, 18.2/56.1, slightly higher than 24 hours before. Chemistries with hyponatremia 129, CO2 20.2, AG 18.8, BUN 54, Cr 3.0, BG 369, Mg 1.7. Initial review of pleural fluid with WBC > 58k and Gram positive bacteria. Vancomycin, pipercillin-tazobactam and azithromycin were started along with maintenance fluid. PFSH All Active Problems (Updated 01/01/25 @ 04:09 by Esau Rod MD) (HFpEF) heart failure with preserved ejection fraction (Acute) COPD (chronic obstructive pulmonary disease) (Chronic) Legionella infection (Acute) Metabolic acidosis, increased anion gap (Acute) H/O percutaneous endoscopic gastrostomy (PEG) (Acute) Acute renal failure (Acute) Sepsis due to pneumonia (Acute) MARILIN (acute kidney injury) (Acute) Pleural effusion on right (Acute) Pneumothorax on right (Acute) Back pain (Acute) MARILIN (acute kidney injury) (Acute) Acute dehydration (Acute) Nausea & vomiting (Acute) S/P percutaneous endoscopic gastrostomy (PEG) tube placement (Acute) Acute exacerbation of chronic obstructive pulmonary disease (Acute) Medical History Advanced care planning/counseling discussion Palliative care encounter PEG tube malfunction Dilatation of esophagus COPD (chronic obstructive pulmonary disease) with acute bronchitis Insulin dependent type 2 diabetes mellitus HFrEF (heart failure with reduced ejection fraction) Abnormal chest xray H/O: pneumonia Drug-induced parkinsonism Neuroleptic induced parkinsonism Tubular adenoma (~06/10/21) Hyperplastic colon polyp (~06/10/21) Erosive esophagitis Esophageal ulcer with bleeding Farrell's esophagus Chronic diarrhea Black tarry stools Pleural effusion Leukocytosis Ventral hernia Cholelithiasis Atrial flutter Diabetes Bipolar 1 disorder Depression Gastrostomy tube obstruction Myocardial injury COPD with acute exacerbation NSTEMI (non-ST elevated myocardial infarction) Per pt. states she did not have a heart attack Bronchiolitis Acute on chronic respiratory failure with hypoxia and hypercapnia Hypotension Vitamin D deficiency Esophageal stricture Chronic systolic (congestive) heart failure Aspiration pneumonia Stress-induced cardiomyopathy acute onset managed [place] [facility] [place] 08/30 pressors, EF 25%, has since recovered RH Acute cardiogenic pulmonary edema Acute metabolic encephalopathy Bilateral pneumonia Hypokalemia Closed fracture of neck of left femur s/p Percutaneous Screw Fixation 08/09/22 Constipation Diabetes mellitus type 2 in obese Chronic iron deficiency anemia ETOH abuse Chronic pancreatitis due to acute alcohol intoxication Alcohol abuse Per pt. states she has never had an issues with any subtances History of pilonidal cyst Anxiety Surgical History History of total right hip replacement (03/01/24) As treatment for R femoral neck fracture PEG (percutaneous endoscopic gastrostomy) status Status post hip surgery History of total left hip arthroplasty (01/19/23) S/P laparoscopic procedure cyst removed from stomach per patient S/P surgical removal of pilonidal cyst History of esophagogastroduodenoscopy (EGD) (~06/10/21) History of colonoscopy with polypectomy (~06/10/21) History of hysterectomy History of tonsillectomy History of section Family History Father Hypertension Diabetes Heart disease Social History Smoking/Tobacco Use Status: Former Tobacco Use Quit Date: 02/07/21 Smoking risk assessment performed?: Yes Alcohol Intake: never Drug use: Never Substance use type: does not use Household members: spouse Housing: jail Number of Children: 2 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 Additional Social history: At [facility] with Meds Allergies and Home Medications Allergies Allergy/AdvReac Type Severity Reaction Status Date / Time metformin AdvReac Unknown Diarrhea Verified 01/01/25 01:59 meperidine AdvReac gi upset Verified 01/01/25 01:59 Home Medications ?Medication ?Instructions ?Recorded ?Confirmed ?Type atorvastatin 80 mg tablet 80 mg feeding tube QPM 11/18/22 01/01/25 History empagliflozin 10 mg tablet 10 mg feeding tube DAILY 11/18/22 01/01/25 History (Jardiance) metoprolol succinate 50 mg 25 mg PO BID 11/18/22 01/01/25 History tablet,extended release 24 hr sacubitril 24 mg-valsartan 26 mg 1 tab feeding tube DAILY 11/18/22 01/01/25 History tablet (Entresto) valproic acid (as sodium salt) 250 300 mg feeding tube TID 11/18/22 01/01/25 History mg/5 mL oral solution bupropion HCl 100 mg tablet 300 mg PO DAILY 12/16/22 01/01/25 History nystatin 100,000 unit/gram topical 1 applic topical TID PRN 05/03/23 01/01/25 History cream pantoprazole 40 mg granules 40 mg G-tube DAILY 05/03/23 01/01/25 History delayed-release for susp in packet insulin glargine 100 unit/mL (3 10 unit subcut QPM 05/04/23 01/01/25 History mL) subcutaneous pen (Lantus Solostar U-100 Insulin) melatonin 3 mg tablet 9 mg feeding tube HS 05/04/23 01/01/25 History ondansetron HCl 4 mg tablet 4 mg feeding tube Q6H PRN 05/08/23 01/01/25 History aspirin 81 mg chewable tablet 81 mg feeding tube DAILY #30 tabs 07/05/23 01/01/25 Rx duloxetine 20 mg capsule,delayed 20 mg PO HS 01/24/24 01/01/25 History release (Cymbalta) inhalational spacing device (Space #1 ea 04/21/24 01/01/25 Rx Chamber) acetaminophen 500 mg/15 mL oral 1,000 mg feeding tube Q8H PRN 08/29/24 01/01/25 History liquid albuterol sulfate 90 mcg/actuation 2 puff inhalation Q4H PRN 08/29/24 01/01/25 History aerosol inhaler bisacodyl 10 mg rectal suppository 10 mg NE DAILY PRN 08/29/24 01/01/25 History folic acid 1 mg tablet 1 mg feeding tube DAILY 08/29/24 01/01/25 History quetiapine 100 mg tablet 300 mg feeding tube DAILY 08/29/24 01/01/25 History cyclobenzaprine 5 mg tablet 5 mg PO TID PRN muscle spasm #30 11/19/24 01/01/25 Rx tabs Exam Narrative Exam Narrative: General: This is a pleasant, fatigued woman in mild distress HEENT: Normocephalic, atraumatic CV: Slightly tachycardic, regular rhythm, no murmur Resp: Diminished breath sounds on the right, worse at base. Left side clear. Abd: PEG site c/d/i, NTND MSK: voluntary motion x4 Neuro: awake, alert, slow responses but appropriate, following instructions Results Labs 01/01/25 00:10 01/01/25 00:10 Labs: Laboratory Results - last 24 hr 01/01/25 01/01/25 00:10 01:20 WBC 7.14 RBC 6.53 H Hgb 18.2 H Hct 56.1 H MCV 86 MCH 27.9 MCHC 32.4 RDW 16.5 H Plt Count 303 MPV 11.4 H Immature Gran % 0.0 Neutrophils % 78.0 Lymphocytes % 13.0 Atypical Lymphs % 1 Monocytes % 8.0 Eosinophils % 0.0 Basophils % 0.0 Nucleated RBC % 0.0 Absolute Neutrophils 5.57 Absolute Lymphocytes 1.00 L Absolute Monocytes 0.57 Absolute Eosinophils 0.00 Absolute Basophils 0.00 RBC Morphology Normal VBG pH 7.24 L VBG pCO2 46 VBG pO2 29 VBG HCO3 20 L VBG Total CO2 17 L VBG O2 Saturation 44 VBG Base Excess -8 L VBG Lactate 4.7 H* Sodium 129 L D Potassium 4.1 Chloride 90 L Carbon Dioxide 20.2 L Anion Gap 18.8 H BUN 54 H Creatinine 3.0 H D Est GFR (CKD-EPI 2020) 16.83 Glucose 269 H Calcium 9.9 Magnesium 1.7 L Total Bilirubin 0.8 AST 18 ALT 18 Alkaline Phosphatase 103 Troponin I 20 Total Protein 8.2 Albumin 3.0 L Last Vital Signs Temp 36.2 C L 12/31/24 22:51 Pulse 130 H 12/31/24 22:51 Resp 30 H 12/31/24 22:51 BP 122/96 H 12/31/24 22:51 Pulse Ox 87 L 12/31/24 22:51 Time Spent Time spent with Patient: 55-74 minutes Time was spent: preparing to see the patient(eg.review tests), obtaining and/or reviewing separately otained hiistory, ordering medications,tests, procedures, referring, communicating with other health childcare director, indepentently interpreting results, counseling the patient and care coordination
[2025-01-01 01:49] LABS: Polynuclear Cells 92 %
[2025-01-01 01:56] LABS: Troponin I 19 ng/L (<or=51)
[2025-01-01] MEDS: Normal Saline 500 ML IV ×2 (03:45→05:50)
[2025-01-01] MEDS: MAGNESIUM SULFATE 2 GM/50 ML BAG IV_INF (04:03)
[2025-01-01] MEDS: fentaNYL 100 MCG/2 ML VIAL 25 MCG IVP (04:04)
[2025-01-01 04:22] LABS: Abs Immature Grans 0.15 10^3/uL (0.0-0.06); HCT 46.0 % (36.0-46.0); HGB 15.0 g/dL (11.2-15.7); MCH 28.2 pg (27.0-33.0); MCHC 32.6 % (32.0-36.0); MCV 87 fL (80-95); MPV 11.3 fL (8.0-11.0); Platelet Count 158 10^3/uL (130-400); RBC 5.32 10^6/uL (3.93-5.22); RDW 15.4 % (11.7-14.6); RDW-SD 48.8 fL; WBC 8.32 10^3/uL (4.4-10.8)
[2025-01-01 04:54] LABS: RBC Morphology Normal
--- NOTE | 2025-01-01 06:16 | W.PC.ACHO ---
Registration Status: ADM IN Primary Language: Preferred Language: Uzbek ED Information & Data Chief Complaint RespSymp 01/01/25 03:06 Chief Complaint RespSymp 12/31/24 22:51 Triage Note was seen yesterday for 12/31/24 22:51 nausea vomiting, dx with legionella, today having trouble breathing, ems called in as sepsis alert Medical / Surgical History (Last Reviewed 12/31/24 @ 22:45 by Aiden Redman MD) Advanced care planning/counseling discussion Palliative care encounter PEG tube malfunction Dilatation of esophagus COPD (chronic obstructive pulmonary disease) with acute bronchitis Insulin dependent type 2 diabetes mellitus HFrEF (heart failure with reduced ejection fraction) Abnormal chest xray H/O: pneumonia Drug-induced parkinsonism Neuroleptic induced parkinsonism Tubular adenoma (~06/10/21) Hyperplastic colon polyp (~06/10/21) Erosive esophagitis Esophageal ulcer with bleeding Farrell's esophagus Chronic diarrhea Black tarry stools Pleural effusion Leukocytosis Ventral hernia Cholelithiasis Atrial flutter Diabetes Bipolar 1 disorder Depression Gastrostomy tube obstruction Myocardial injury COPD with acute exacerbation NSTEMI (non-ST elevated myocardial infarction) Bronchiolitis Acute on chronic respiratory failure with hypoxia and hypercapnia Hypotension Vitamin D deficiency Esophageal stricture Chronic systolic (congestive) heart failure Aspiration pneumonia Stress-induced cardiomyopathy Acute cardiogenic pulmonary edema Acute metabolic encephalopathy Bilateral pneumonia Hypokalemia Closed fracture of neck of left femur Constipation Diabetes mellitus type 2 in obese Chronic iron deficiency anemia ETOH abuse Chronic pancreatitis due to acute alcohol intoxication Alcohol abuse History of pilonidal cyst Anxiety (Last Reviewed 12/31/24 @ 22:45 by Aiden Redman MD) History of total right hip replacement (03/01/24) PEG (percutaneous endoscopic gastrostomy) status Status post hip surgery History of total left hip arthroplasty (01/19/23) S/P laparoscopic procedure S/P surgical removal of pilonidal cyst History of esophagogastroduodenoscopy (EGD) (~06/10/21) History of colonoscopy with polypectomy (~06/10/21) History of hysterectomy History of tonsillectomy History of section Most Recent Vital Signs Temperature 36.3 C L 01/01/25 02:45 Temperature Source Temporal Artery Scan 01/01/25 02:45 Pulse 85 01/01/25 06:01 Pulse 82 01/01/25 06:01 Respiratory Rate 28 H 01/01/25 06:01 Respiratory Effort Short of Breath, Incrsd Work of Breathing 01/01/25 03:09 Respiratory Depth Normal 01/01/25 03:09 Respiratory Pattern Tachypnea 01/01/25 02:45 Blood Pressure 74/55 L 01/01/25 06:01 Blood Pressure Mean 62 01/01/25 06:01 Blood Pressure Position Sitting 12/31/24 22:51 Pulse Oximetry 86 L 01/01/25 05:31 Oxygen Delivery Method Nasal Cannula 01/01/25 02:45 Oxygen Flow Rate 0 01/01/25 02:45 Pain Level 9 01/01/25 04:04 Allergies metformin Adverse Reaction (Unknown, Verified 01/01/25 01:59) Diarrhea meperidine Adverse Reaction (Verified 01/01/25 01:59) gi upset Precautions Isolation Standard precaution 01/01/25 03:06 Active Medications Generic Name Dose Route Start Last Admin Trade Name Freq PRN Reason Stop Dose Admin Sodium Chloride 1,000 mls @ 200 mls/hr 12/31/24 23:45 01/01/25 00:21 Saline 1000ml Bag IV 125 mls/hr INFUSION LAZARUS Administration Azithromycin 500 mg/ Sodium 250 mls @ 250 mls/hr 01/01/25 04:00 01/01/25 05:34 Chloride IVPB Not Given Q24H LAZARUS Sodium Chloride 500 mls @ 500 mls/hr 01/01/25 05:36 01/01/25 05:50 Saline 500ml Bag IV 01/01/25 06:35 500 mls/hr BOLUS ONE Administration IV IV Catheter Type [Left Hand] Peripheral IV IV Catheter Type [Right Peripheral IV Antecubital] IV Catheter Gauge [Left Hand] 20 IV Catheter Gauge [Right 20 Antecubital] Diet Orders Category Date Time Status Nothing Per Oral [DIET] Nutrition 01/01/25 01:22 Active Diagnostics 01/01/25 01/01/25 01/01/25 Range/Units 20:00 16:00 12:00 WBC (4.4-10.8) 10^3/uL RBC (3.93-5.22) 10^6/uL Hgb (11.2-15.7) g/dL Hct (36.0-46.0) % MCV (80-95) fL MCH (27.0-33.0) pg MCHC (32.0-36.0) % RDW (11.7-14.6) % Plt Count (130-400) 10^3/uL MPV (8.0-11.0) fL Immature Gran % % Neutrophils % % Band Neutrophils % % Lymphocytes % % Atypical Lymphs % % Monocytes % % Eosinophils % % Basophils % % Myelocytes % Nucleated RBC % (0.0-0.3) % Absolute Neutrophils (1.2-6.7) 10^3/uL Absolute Lymphocytes (1.2-3.4) 10^3/uL Absolute Monocytes (0.1-0.8) 10^3/uL Absolute Eosinophils (0.0-0.7) 10^3/uL Absolute Basophils (0.0-0.2) 10^3/uL RBC Morphology PT INR VBG pH (7.31-7.41) VBG pCO2 (41-51) mmHg VBG pO2 mmHg VBG HCO3 (23-28) mmol/L VBG Total CO2 (24-29) mmol/L VBG O2 Saturation % VBG Base Excess (-2-3) mmol/L VBG Lactate (<or=2.0) mmol/L Sodium Pending Pending Pending (136-145) mmol/L Potassium Pending Pending Pending (3.5-5.1) mmol/L Chloride Pending Pending Pending (98-107) mmol/L Carbon Dioxide Pending Pending Pending (21.0-32.0) mmol/L Anion Gap Pending Pending Pending (3-11) mmol/L BUN Pending Pending Pending (7-18) mg/dL Creatinine Pending Pending Pending (0.55-1.02) mg/dL Est GFR (CKD-EPI 2020) Pending Pending Pending (mL/min/1.73m2) Glucose Pending Pending Pending (74-106) mg/dL Calcium Pending Pending Pending (8.5-10.1) mg/dL Magnesium (1.8-2.4) mg/dL Total Bilirubin (0.2-1.0) mg/dL AST (15-37) U/L ALT (14-59) U/L Alkaline Phosphatase (46-116) U/L Troponin I (<or=51) ng/L Total Protein (6.4-8.2) g/dL Albumin (3.4-5.0) g/dL Fluid Source Fluid Color Fluid Clarity Fluid WBC (0) uL Fld Polynuclear WBCs % % Fluid Mononuclear Cell % Fluid Other Cells % Legionella Source L.pneumophila Antibody Urine Legionella Ag Legionella DNA (PCR) Path Cons Comment 01/01/25 01/01/25 01/01/25 Range/Units 08:00 05:40 05:35 WBC (4.4-10.8) 10^3/uL RBC (3.93-5.22) 10^6/uL Hgb (11.2-15.7) g/dL Hct (36.0-46.0) % MCV (80-95) fL MCH (27.0-33.0) pg MCHC (32.0-36.0) % RDW (11.7-14.6) % Plt Count (130-400) 10^3/uL MPV (8.0-11.0) fL Immature Gran % % Neutrophils % % Band Neutrophils % % Lymphocytes % % Atypical Lymphs % % Monocytes % % Eosinophils % % Basophils % % Myelocytes % Nucleated RBC % (0.0-0.3) % Absolute Neutrophils (1.2-6.7) 10^3/uL Absolute Lymphocytes (1.2-3.4) 10^3/uL Absolute Monocytes (0.1-0.8) 10^3/uL Absolute Eosinophils (0.0-0.7) 10^3/uL Absolute Basophils (0.0-0.2) 10^3/uL RBC Morphology PT Cancelled INR Cancelled VBG pH Pending (7.31-7.41) VBG pCO2 Pending (41-51) mmHg VBG pO2 Pending mmHg VBG HCO3 Pending (23-28) mmol/L VBG Total CO2 Pending (24-29) mmol/L VBG O2 Saturation Pending % VBG Base Excess Pending (-2-3) mmol/L VBG Lactate Pending (<or=2.0) mmol/L Sodium Pending (136-145) mmol/L Potassium Pending (3.5-5.1) mmol/L Chloride Pending (98-107) mmol/L Carbon Dioxide Pending (21.0-32.0) mmol/L Anion Gap Pending (3-11) mmol/L BUN Pending (7-18) mg/dL Creatinine Pending (0.55-1.02) mg/dL Est GFR (CKD-EPI 2020) Pending (mL/min/1.73m2) Glucose Pending (74-106) mg/dL Calcium Pending (8.5-10.1) mg/dL Magnesium (1.8-2.4) mg/dL Total Bilirubin (0.2-1.0) mg/dL AST (15-37) U/L ALT (14-59) U/L Alkaline Phosphatase (46-116) U/L Troponin I (<or=51) ng/L Total Protein (6.4-8.2) g/dL Albumin (3.4-5.0) g/dL Fluid Source Fluid Color Fluid Clarity Fluid WBC (0) uL Fld Polynuclear WBCs % % Fluid Mononuclear Cell % Fluid Other Cells % Legionella Source L.pneumophila Antibody Urine Legionella Ag Legionella DNA (PCR) Path Cons Comment 01/01/25 01/01/25 01/01/25 Range/Units 04:45 04:15 01:20 WBC 8.32 (4.4-10.8) 10^3/uL RBC 5.32 H (3.93-5.22) 10^6/uL Hgb 15.0 D (11.2-15.7) g/dL Hct 46.0 (36.0-46.0) % MCV 87 (80-95) fL MCH 28.2 (27.0-33.0) pg MCHC 32.6 (32.0-36.0) % RDW 15.4 H (11.7-14.6) % Plt Count 158 (130-400) 10^3/uL MPV 11.3 H (8.0-11.0) fL Immature Gran % See Differential % Neutrophils % 63.0 % Band Neutrophils % 5 % Lymphocytes % 10.0 % Atypical Lymphs % 3 % Monocytes % 18.0 % Eosinophils % 0.0 % Basophils % 0.0 % Myelocytes % 1 Nucleated RBC % 0.0 (0.0-0.3) % Absolute Neutrophils 5.66 (1.2-6.7) 10^3/uL Absolute Lymphocytes 1.08 L (1.2-3.4) 10^3/uL Absolute Monocytes 1.50 H (0.1-0.8) 10^3/uL Absolute Eosinophils 0.00 (0.0-0.7) 10^3/uL Absolute Basophils 0.00 (0.0-0.2) 10^3/uL RBC Morphology Normal PT INR VBG pH (7.31-7.41) VBG pCO2 (41-51) mmHg VBG pO2 mmHg VBG HCO3 (23-28) mmol/L VBG Total CO2 (24-29) mmol/L VBG O2 Saturation % VBG Base Excess (-2-3) mmol/L VBG Lactate 4.7 H* (<or=2.0) mmol/L Sodium Pending (136-145) mmol/L Potassium Pending (3.5-5.1) mmol/L Chloride Pending (98-107) mmol/L Carbon Dioxide Pending (21.0-32.0) mmol/L Anion Gap Pending (3-11) mmol/L BUN Pending (7-18) mg/dL Creatinine Pending (0.55-1.02) mg/dL Est GFR (CKD-EPI 2020) Pending (mL/min/1.73m2) Glucose Pending (74-106) mg/dL Calcium Pending (8.5-10.1) mg/dL Magnesium (1.8-2.4) mg/dL Total Bilirubin Pending (0.2-1.0) mg/dL AST Pending (15-37) U/L ALT Pending (14-59) U/L Alkaline Phosphatase Pending (46-116) U/L Troponin I 19 (<or=51) ng/L Total Protein Pending (6.4-8.2) g/dL Albumin Pending (3.4-5.0) g/dL Fluid Source Fluid Color Fluid Clarity Fluid WBC (0) uL Fld Polynuclear WBCs % % Fluid Mononuclear Cell % Fluid Other Cells % Legionella Source L.pneumophila Antibody Urine Legionella Ag Pending Legionella DNA (PCR) Path Cons Comment 01/01/25 01/01/25 12/31/24 Range/Units 00:10 00:02 23:15 WBC 7.14 (4.4-10.8) 10^3/uL RBC 6.53 H (3.93-5.22) 10^6/uL Hgb 18.2 H (11.2-15.7) g/dL Hct 56.1 H (36.0-46.0) % MCV 86 (80-95) fL MCH 27.9 (27.0-33.0) pg MCHC 32.4 (32.0-36.0) % RDW 16.5 H (11.7-14.6) % Plt Count 303 (130-400) 10^3/uL MPV 11.4 H (8.0-11.0) fL Immature Gran % 0.0 % Neutrophils % 78.0 % Band Neutrophils % % Lymphocytes % 13.0 % Atypical Lymphs % 1 % Monocytes % 8.0 % Eosinophils % 0.0 % Basophils % 0.0 % Myelocytes % Nucleated RBC % 0.0 (0.0-0.3) % Absolute Neutrophils 5.57 (1.2-6.7) 10^3/uL Absolute Lymphocytes 1.00 L (1.2-3.4) 10^3/uL Absolute Monocytes 0.57 (0.1-0.8) 10^3/uL Absolute Eosinophils 0.00 (0.0-0.7) 10^3/uL Absolute Basophils 0.00 (0.0-0.2) 10^3/uL RBC Morphology Normal PT INR VBG pH 7.24 L (7.31-7.41) VBG pCO2 46 (41-51) mmHg VBG pO2 29 mmHg VBG HCO3 20 L (23-28) mmol/L VBG Total CO2 17 L (24-29) mmol/L VBG O2 Saturation 44 % VBG Base Excess -8 L (-2-3) mmol/L VBG Lactate (<or=2.0) mmol/L Sodium 129 L D (136-145) mmol/L Potassium 4.1 (3.5-5.1) mmol/L Chloride 90 L (98-107) mmol/L Carbon Dioxide 20.2 L (21.0-32.0) mmol/L Anion Gap 18.8 H (3-11) mmol/L BUN 54 H (7-18) mg/dL Creatinine 3.0 H D (0.55-1.02) mg/dL Est GFR (CKD-EPI 2021) 16.83 (mL/min/1.73m2) Glucose 269 H (74-106) mg/dL Calcium 9.9 (8.5-10.1) mg/dL Magnesium 1.7 L (1.8-2.4) mg/dL Total Bilirubin 0.8 (0.2-1.0) mg/dL AST 18 (15-37) U/L ALT 18 (14-59) U/L Alkaline Phosphatase 103 (46-116) U/L Troponin I 20 (<or=51) ng/L Total Protein 8.2 (6.4-8.2) g/dL Albumin 3.0 L (3.4-5.0) g/dL Fluid Source Thoracic Fluid Color Yellow Fluid Clarity Cloudy Fluid WBC 97652 (0) uL Fld Polynuclear WBCs % 92 % Fluid Mononuclear Cell 8 % Fluid Other Cells % Legionella Source Pending L.pneumophila Antibody Pending Urine Legionella Ag Legionella DNA (PCR) Pending Path Cons Comment Pending Pending 12/31/24 23:15 Body Fluid Culture - Pending Thoracentesis Gram Stain - Final 01/01/25 01:15 Blood Culture - Pending Blood 01/01/25 00:45 Blood Culture - Pending Blood [id number] Documentation Fingerstick Glucose Start: 01/01/25 01:33 Freq: .Q6H Status: Active Protocol: Activity Type Activity Date Activity User E-sign Co-sign Detail Recorded Client Recorded Date Recorded By Document 01/01/25 04:09 BKG DAEMON(5) [id number] 01/01/25 04:10 BKG DAEMON(6) Intake and Output - 24 Hour Total 12/31/24 22:21 thru 01/01/25 05:10 Intake Total 1300 Output Total 75 Balance 1225 Weight 76.4 kg Intake: IV 1300 Output: Urine 75 Other: Urine Color Light Avani Urine Appearance Cloudy Comment 75mL output from barba catheter, drawn for lab test. Urinary Catheter Urinary Catheter Date of 01/01/25 Insertion [Urethral (Barba)] Time of insertion [Urethral ( 04:30 Barba)] Falls Risk Assessment History of Falls No History 01/01/25 03:07 Contributing Factors Confusion 01/01/25 03:07 Ambulatory Aids Uses ambulatory device 01/01/25 03:07 Tubes/Lines W/no contributing factors 01/01/25 03:07 Gait Evaluation W/no contributing factors 01/01/25 03:07 Cognition Cognitive impairment 01/01/25 03:07 Fall Total Score 53 01/01/25 03:07 Level of Risk High Risk 01/01/25 03:07 Problems (Last Reviewed 12/31/24 @ 22:45 by Aiden Redman MD) (HFpEF) heart failure with preserved ejection fraction (Acute) COPD (chronic obstructive pulmonary disease) (Chronic) Legionella infection (Acute) Metabolic acidosis, increased anion gap (Acute) H/O percutaneous endoscopic gastrostomy (PEG) (Acute) Acute renal failure (Acute) Sepsis due to pneumonia (Acute) MARILIN (acute kidney injury) (Acute) Pleural effusion on right (Acute) Pneumothorax on right (Acute) v v v v v v v v v Sending and/or Receiving Nurses: Please use comment section below to note any information pertinent to the patient hand-off not included above. Information / Comments: Report received from: Gerry Hollis Giver
--- NOTE | 2025-01-01 06:45 | RT.EKG_ITS ---
APPROVED REPORT Exam: Resting ECG Reason for Exam: QT prolongation Patient Location: I HR:81 bpm ECG Measurements Heart Rate 81 AXIS AK 143 P 59 QRSd 85 QRS 57 QT 389 T 34 QTc 452 Conclusion Sinus rhythm...normal P axis, V-rate 50- 99 Low voltage, extremity and precordial leads...extremity<0.5mV, precordial<1.0mV
--- NOTE | 2025-01-01 07:00 | DI.RAD_ITS ---
Exam(s) XR PORTABLE CHEST AP POST LINE EXAM: XR PORTABLE CHEST AP POST LINE CLINICAL HISTORY: post CVC placement TECHNIQUE: 2D digital imaging was performed of the chest. Two images were obtained. AP views were obtained. COMPARISON: CR,XR XR PORTABLE CHEST AP POST LINE from 12/31/2024 FINDINGS: There is again seen a right pleural drain. The pneumothorax has decreased in size since the prior examination. The apex of the lung is at the level of the 3rd rib posteriorly. There has been interval placement of a right IJ catheter. The tip of the catheter is seen in the right atrium. MEDIASTINUM: Normal. HEART: Normal. PULMONARY VASCULATURE: Normal. LUNGS: There are persistent bilateral basilar opacities, left greater than right. This may represent atelectasis or pneumonia. They are grossly unchanged. PLEURAL SPACE: There are persistent small bilateral pleural effusions. There is no left pneumothorax. BONE:Within normal limits for the patient's age. OTHER FINDINGS:Normal. IMPRESSION: 1. There has been interval placement of a right IJ catheter. The tip of the catheter is in the right atrium. 2. There is a persistent right pneumothorax which has decreased in size compared to the prior examination. 3. The right pleural drain is in stable position. 4. Persistent bilateral basilar opacities and pleural effusions. DATA REPOSITORY: RADIATION DOSE DELIVERED:
[2025-01-01] MEDS: Normal Saline-STERILE FIELD 0.9% 10 ML SYR ×3 (07:10→09:41)
--- NOTE | 2025-01-01 07:45 | DI.RAD_ITS ---
Exam(s) XR PORTABLE CHEST AP POST LINE EXAM: XR PORTABLE CHEST AP POST LINE CLINICAL HISTORY: ij placement TECHNIQUE: 2D digital imaging was performed of the chest. One image was obtained. An AP view was obtained. COMPARISON: CR XR PORTABLE CHEST AP POST LINE from 01/01/2025 FINDINGS: There is a right IJ catheter. The tip is near the junction of the superior vena cava and right atrium. MEDIASTINUM: Normal. HEART: Normal. PULMONARY VASCULATURE: Normal. LUNGS: There are persistent bilateral basilar infiltrates, left greater than right. PLEURAL SPACE: There are persistent bilateral small pleural effusions. There is a persistent small right apical pneumothorax which is stable compared to the examination from 5 minutes earlier. BONE:Within normal limits for the patient's age. OTHER FINDINGS:The right pleural drain is in stable position. IMPRESSION: 1. The tip of the right IJ catheter is at the junction of the superior vena cava and right atrium. 2. Stable right pneumothorax, bilateral basilar opacities and pleural effusions. 3. Stable position of the right pleural drain. DATA REPOSITORY: RADIATION DOSE DELIVERED:
[2025-01-01] MEDS: Norepinephrine in D5W 8 MG/250 ML BAG 9.375 MG IV (07:47)
[2025-01-01] MEDS: Normal Saline 1,000 ML 200 ML IV (07:53)
--- NOTE | 2025-01-01 08:00 | DI.CT_ITS ---
Exam(s) CT CHEST WO EXAM: CT CHEST WO CLINICAL HISTORY: Empyema. TECHNIQUE: Imaging protocol: Axial computed tomography images were obtained and coronal and sagittal reformatted images were created and reviewed. Lung Computer Aided Detection (CAD) was utilized. COMPARISON: CT CT CHEST PE CTA from 05/01/[address] CHEST PE ABD PELVIS W from 11/16/[address] ABDOMEN PELVIS W from 12/30/2024 CR,XR XR PORTABLE CHEST AP POST LINE from 12/31/2024 CR XR PORTABLE CHEST AP POST LINE from 01/01/2025 FINDINGS: Tracheobronchial tree: Patent where visualized. No bronchiectasis is present. Pulmonary parenchyma: Since prior examination, there has been interval development of areas of consolidation with air bronchograms involving the left lower lobe, right lower lobe and right middle lobe. No architectural distortion. Mediastinum and Lesli: No dominant adenopathy or fluid collection. There is a hiatal hernia present. There is fluid seen in the esophagus distally. Thyroid gland: Unremarkable. Pleura: There are bilateral pleural effusions. There is a small to moderate sized left pleural effusion and a small right pleural effusion. No definite encapsulation is seen on this examination, however the examination is limited due to lack of contrast. Loculation cannot be entirely excluded in the right lung base. There is a right pleural drain in place. There is no left pneumothorax. There is a small right pneumothorax. Heart: The heart is not dilated. Mild single-vessel coronary artery calcification is present. No pericardial effusion. Aorta: Thoracic aorta non-dilated. Atherosclerotic calcification is present. Upper abdomen: There is a cyst again seen in the liver. There is contrast seen in the gallbladder consistent with vicarious excretion. Lymph nodes: Within normal limits. Tubes, Catheters, and Lines: There is a right IJ catheter. The tip is seen in the superior vena cava in good position. Soft tissues: Unremarkable. Bones:Within normal limits for the patient's age. IMPRESSION: 1. Three small right pneumothorax. 2. There is a right pleural drain in place in the lung bases. 3. There is a small right pleural effusion and a moderate size left pleural effusion. Within the limits of the examination without IV contrast, no definite loculation is seen. However, loculation cannot be excluded particularly in the right lung base. 4. Bilateral basilar consolidations which may represent atelectasis or pneumonia. 5. Please see the above discussion for complete details. RADIATION DOSE DELIVERED: 274.44mGy.cm Total DLP 274.44mGy.cm Total DLP DATA REPOSITORY: All CT scans at this facility are submitted to the National Radiology Data Registry (NRDR) Dose Index Registry (DIR) with the [employer] (ACR). RADIATION OPTIMIZATION: All CT scans at this facility use at least one of these dose optimization techniques: automated exposure control; mA and/or kV adjustment per patient size (includes targeted exams where dose is matched to clinical indication); or iterative reconstruction.
--- NOTE | 2025-01-01 08:20 | PDOC.CMIN ---
Date of service: 01/01/25 Time of Service: 08:20 Care Management Initial Assmt Advance Directives Advance Directives: Do you have an Advance Directive: N 05/01/24, 08:18 AD On File at [facility]: N 05/01/24, 08:18 Date Asked 12/30/24 12/30/24, 19:24 AD Date Reviewed COLST On File at [facility] COLST Date Scanned Code Status Resuscitation Status Full Code Care Team Visit Care Team Role Provider Type Darin Giron MD MD [facility] STAFF PHYSICIAN Ana Gillespie Primary Care Provider NURSE PRACTITIONER Steven Gant MD Other Providers [facility] STAFF PHYSICIAN Aiden Redman MD Emergency Provider [facility] STAFF PHYSICIAN Esau Rod MD Admit Provider [facility] STAFF PHYSICIAN Attending Provider Social Determinants of Health Screening Will the Patient Participate in the Screening?: Unable to obtain Comments: Patient is not stable at this time, while awake and alert, complex questions result in limited comprehension and confused answers. PFSH All Active Problems (Updated 01/01/25 @ 04:09 by Esau Rod MD) (HFpEF) heart failure with preserved ejection fraction (Acute) COPD (chronic obstructive pulmonary disease) (Chronic) Legionella infection (Acute) Metabolic acidosis, increased anion gap (Acute) H/O percutaneous endoscopic gastrostomy (PEG) (Acute) Acute renal failure (Acute) Sepsis due to pneumonia (Acute) MARILIN (acute kidney injury) (Acute) Pleural effusion on right (Acute) Pneumothorax on right (Acute) Back pain (Acute) MARILIN (acute kidney injury) (Acute) Acute dehydration (Acute) Nausea & vomiting (Acute) S/P percutaneous endoscopic gastrostomy (PEG) tube placement (Acute) Acute exacerbation of chronic obstructive pulmonary disease (Acute) Medical History Advanced care planning/counseling discussion Palliative care encounter PEG tube malfunction Dilatation of esophagus COPD (chronic obstructive pulmonary disease) with acute bronchitis Insulin dependent type 2 diabetes mellitus HFrEF (heart failure with reduced ejection fraction) Abnormal chest xray H/O: pneumonia Drug-induced parkinsonism Neuroleptic induced parkinsonism Tubular adenoma (~06/10/21) Hyperplastic colon polyp (~06/10/21) Erosive esophagitis Esophageal ulcer with bleeding Farrell's esophagus Chronic diarrhea Black tarry stools Pleural effusion Leukocytosis Ventral hernia Cholelithiasis Atrial flutter Diabetes Bipolar 1 disorder Depression Gastrostomy tube obstruction Myocardial injury COPD with acute exacerbation NSTEMI (non-ST elevated myocardial infarction) Per pt. states she did not have a heart attack Bronchiolitis Acute on chronic respiratory failure with hypoxia and hypercapnia Hypotension Vitamin D deficiency Esophageal stricture Chronic systolic (congestive) heart failure Aspiration pneumonia Stress-induced cardiomyopathy acute onset managed at [facility] [place] 08/30 pressors, EF 25%, has since recovered RH Acute cardiogenic pulmonary edema Acute metabolic encephalopathy Bilateral pneumonia Hypokalemia Closed fracture of neck of left femur s/p Percutaneous Screw Fixation 08/09/22 Constipation Diabetes mellitus type 2 in obese Chronic iron deficiency anemia ETOH abuse Chronic pancreatitis due to acute alcohol intoxication Alcohol abuse Per pt. states she has never had an issues with any subtances History of pilonidal cyst Anxiety Surgical History History of total right hip replacement (03/01/24) As treatment for R femoral neck fracture PEG (percutaneous endoscopic gastrostomy) status Status post hip surgery History of total left hip arthroplasty (01/19/23) S/P laparoscopic procedure cyst removed from stomach per patient S/P surgical removal of pilonidal cyst History of esophagogastroduodenoscopy (EGD) (~06/10/21) History of colonoscopy with polypectomy (~06/10/21) History of hysterectomy History of tonsillectomy History of section Family History Father Hypertension Diabetes Heart disease Social History Smoking/Tobacco Use Status: Former Tobacco Use Quit Date: 02/07/21 Smoking risk assessment performed?: Yes Alcohol Intake: never Drug use: Never Substance use type: does not use Household members: spouse Housing: prison Number of Children: 2 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
[2025-01-01 08:21] LABS: BE (Venous) -8 mmol/L (-2-3); HCO3 (Venous) 19 mmol/L (23-28); O2 Sat (Venous) 76 %; TCO2 (Venous) 17 mmol/L (24-29); pCO2 (Venous) 39 mmHg (41-51); pO2 (Venous) 47 mmHg
--- NOTE | 2025-01-01 08:37 | W.PULMCC ---
General Date of Service Date of service: 01/01/25 Time of Service: 07:15 Reason for Admission to ICU: Septic shock Assessment and Plan Assessment and plan (1) Septic shock: Status: Acute (2) Pneumothorax on right: Status: Acute (3) Pleural effusion on right: Status: Acute (4) MARILIN (acute kidney injury): Status: Acute (5) Sepsis due to pneumonia: Status: Acute Recommendations Pulmonary: Assessment: 1. Septic shock - due to right empyema / pneumonia. Currently on levophed 2. Acute hypoxemic respiratory failure - due to pneumonia and empyema 3. Pneumonia - aspiration vs legionella vs other - do not have confirmatory testing for legionella pneumonia at this time. 4. Right empyema - s/p chest tube placement 5. Right pneumothorax - could be related to pneumonia 6. Acute renal failure - Cr 3.0 this AM 7. Hx COPD - no confirmatory PFT's available. Currently not in exacerbation. Recommendations: - CT chest to evaluate her empyema and loculated fluid. Her persistent pneumothorax, post chest tube placement is concerning of a entrapped/trapped lung. May require CTS intervention / decortication - continue vancomycin, zosyn, and azithromycin - will take chest tube off suction given her chest pain and possible trapped lung. Leave to water seal - continue bronchodilators. Hold on systemic steroids at this time - continue levophed. Titrate for MAP > 65. If requirements increase over the day, can place arterial line - will hold QT prolonging medications for now, except for azithromycin. QTc has improved this AM. - I have updated the patients over the phone at her request Discussed with Dr. Giron I&O: Intake & Output 12/29/24 12/30/24 12/31/24 01/01/25 23:59 23:59 23:59 23:59 Intake Total 1300 / 1300 Output Total 75 / 75 Balance 1225 / 1225 Weight 74.253 kg 76.2 kg Date of Last Bowel Movement: 12/31/24 Code Status: Resuscitation Status Full Code Subjective Critical and life-threatening events over the past 24 hours: 64 yo with a history of DM II, hx aspiration (s/p PEG tube), COPD, and HFpEF, who was admitted on 12/31 for septic shock, pneumonia, right empyema, and acute on chronic renal failure. She was seen in the ED the day prior to admission for N/V and back pain. CT abd on 12/30 did not show any basilar infiltrates or pleural effusion. Was discharged home. Then developed dyspnea and chest pain and was taken to the ED. CXR showed a large right pneumothorax and right pleural effusion. Right chest tube was placed in the ED with significant evacuation (~1.1 L) of pleural fluid. Pleural fluid gram stain was positive for gram positive cocci. WBC was > 67799. Remaining analysis is still pending. She was started on vancomycin, zosyn, and azithromycin. Was hypotensive despite IVF bolus' and was started on levophed. CVC was placed 01/01. QTc this AM improved She complains of upper/mid back pain. No significant air-leak from chest tube. It is actively draining pleural fluid. Currently on 5 mcg/min of levophed. Denies nausea this AM. No abdominal pain. Currently on 4 L O2. Exam Narrative Exam Narrative: General: alert, no acute distress, oriented x 2 on my exam Head: normocephalic ENT: no stridor, trachea midline CV: normal rate, regular rhythm Respiratory: no wheezing, no crackles, no rhonchi, no prolonged expiration GI: abd soft, non-tender, non-distended Skin: no rashes Extremities: no edema, no digital clubbing Psych: normal affect Most Recent VS/Results Last Vital Signs Temp 36.3 C L 01/01/25 02:45 Pulse 85 01/01/25 06:01 Resp 28 H 01/01/25 06:01 BP 74/55 L 01/01/25 06:01 Pulse Ox 90 L 01/01/25 07:24 Laboratory Results - last 24 hr 01/01/25 01/01/25 01/01/25 00:02 00:10 01:20 WBC 7.14 RBC 6.53 H Hgb 18.2 H Hct 56.1 H MCV 86 MCH 27.9 MCHC 32.4 RDW 16.5 H Plt Count 303 MPV 11.4 H Immature Gran % 0.0 Neutrophils % 78.0 Band Neutrophils % Lymphocytes % 13.0 Atypical Lymphs % 1 Monocytes % 8.0 Eosinophils % 0.0 Basophils % 0.0 Myelocytes % Nucleated RBC % 0.0 Absolute Neutrophils 5.57 Absolute Lymphocytes 1.00 L Absolute Monocytes 0.57 Absolute Eosinophils 0.00 Absolute Basophils 0.00 RBC Morphology Normal PT INR VBG pH 7.24 L VBG pCO2 46 VBG pO2 29 VBG HCO3 20 L VBG Total CO2 17 L VBG O2 Saturation 44 VBG Base Excess -8 L VBG Lactate 4.7 H* Sodium 129 L D Potassium 4.1 Chloride 90 L Carbon Dioxide 20.2 L Anion Gap 18.8 H BUN 54 H Creatinine 3.0 H D Est GFR (CKD-EPI 2020) 16.83 Glucose 269 H Calcium 9.9 Magnesium 1.7 L Total Bilirubin 0.8 AST 18 ALT 18 Alkaline Phosphatase 103 Troponin I 20 19 Total Protein 8.2 Albumin 3.0 L Fluid Source Thoracic Fluid Color Yellow Fluid Clarity Cloudy Fluid WBC 10661 Fld Polynuclear WBCs % 92 Fluid Mononuclear Cell 8 Fluid Other Cells 01/01/25 01/01/25 01/01/25 04:15 05:35 08:00 WBC 8.32 RBC 5.32 H Hgb 15.0 D Hct 46.0 MCV 87 MCH 28.2 MCHC 32.6 RDW 15.4 H Plt Count 158 MPV 11.3 H Immature Gran % See Differential Neutrophils % 63.0 Band Neutrophils % 5 Lymphocytes % 10.0 Atypical Lymphs % 3 Monocytes % 18.0 Eosinophils % 0.0 Basophils % 0.0 Myelocytes % 1 Nucleated RBC % 0.0 Absolute Neutrophils 5.66 Absolute Lymphocytes 1.08 L Absolute Monocytes 1.50 H Absolute Eosinophils 0.00 Absolute Basophils 0.00 RBC Morphology Normal PT Cancelled INR Cancelled VBG pH VBG pCO2 VBG pO2 VBG HCO3 VBG Total CO2 VBG O2 Saturation VBG Base Excess VBG Lactate Sodium Cancelled Potassium Cancelled Chloride Cancelled Carbon Dioxide Cancelled Anion Gap Cancelled BUN Cancelled Creatinine Cancelled Est GFR (CKD-EPI 2020) Cancelled Glucose Cancelled Calcium Cancelled Magnesium Total Bilirubin AST ALT Alkaline Phosphatase Troponin I Total Protein Albumin Fluid Source Fluid Color Fluid Clarity Fluid WBC Fld Polynuclear WBCs % Fluid Mononuclear Cell Fluid Other Cells 01/01/25 08:14 WBC RBC Hgb Hct MCV MCH MCHC RDW Plt Count MPV Immature Gran % Neutrophils % Band Neutrophils % Lymphocytes % Atypical Lymphs % Monocytes % Eosinophils % Basophils % Myelocytes % Nucleated RBC % Absolute Neutrophils Absolute Lymphocytes Absolute Monocytes Absolute Eosinophils Absolute Basophils RBC Morphology PT INR VBG pH 7.28 L VBG pCO2 39 L VBG pO2 47 VBG HCO3 19 L VBG Total CO2 17 L VBG O2 Saturation 76 VBG Base Excess -8 L VBG Lactate 1.8 Sodium Potassium Chloride Carbon Dioxide Anion Gap BUN Creatinine Est GFR (CKD-EPI 2020) Glucose Calcium Magnesium Total Bilirubin AST ALT Alkaline Phosphatase Troponin I Total Protein Albumin Fluid Source Fluid Color Fluid Clarity Fluid WBC Fld Polynuclear WBCs % Fluid Mononuclear Cell Fluid Other Cells Review of Systems All systems reviewed & are unremarkable except as noted in HPI and below Time spent with patient Time spent in Critical Care: 65 Time spent in Critical care included: Performing procedures not included in c.c time, Coordination of care, Chart review, Documenting critically ill care, Time at immediate bedside, Discussing critically ill care with other medical staff and Discussing care with family members Pocus Exam Limited Vascular Exam DATE OF EXAM: 01/01/25 TIME OF EXAM: 07:50 PROVIDER THAT PERFORMED THE STUDY: Steven Gant IS THIS A REPEAT EXAM DURING THIS ENCOUNTER: No DIFFERENTIAL DIAGNOSES: Septic shock INCIDENTAL FINDINGS: Right internal jugular vein visualized with guidewire in appropriate position
[2025-01-01 08:44] LABS: ALT 14 U/L (14-59); AST 20 U/L (15-37); Albumin 1.9 g/dL (3.4-5.0); Alkaline Phosphatase 65 U/L (46-116); Anion Gap 13.5 mmol/L (3-11); BUN 53 mg/dL (7-18); Bilirubin, Total 0.5 mg/dL (0.2-1.0); CO2 20.5 mmol/L (21.0-32.0); Calcium 8.2 mg/dL (8.5-10.1); Chloride 102 mmol/L (98-107); Estimated GFR 25.83 (mL/min/1.73m2); Glucose 142 mg/dL (74-106); Potassium 3.9 mmol/L (3.5-5.1); Sodium 136 mmol/L (136-145); Total Protein 5.6 g/dL (6.4-8.2)
--- NOTE | 2025-01-01 09:23 | W.PM.OP ---
Operative Note Operative Note PRE-OP DIAGNOSIS: Septic shock POST-OP DIAGNOSIS: same PROCEDURE: Ultrasound guided central venous catheter placement SURGEON: Steven Gant ANESTHESIA TYPE: Local By Surgeon PATHOLOGY: none sent Indications: Need IV access in a critically ill patient (medication and fluid delivery, lab draws) Procedure Description: The procedure risks, benefits, and alternatives were discussed with Mrs. Irving, who understood and informed consent was obtained. ?Laboratory studies and radiographs were reviewed. ?A time-out was performed.? Bedside ultrasound was used to identify an appropriate site for central line placement in the right internal jugular vein.? Sterile technique was used throughout the procedure. ?The site was cleaned and draped in a sterile fashion.? The patient was placed in trendelenburg position.? 1% lidocaine was used to anesthetize the skin at the insertion site.? Under ultrasound guidance, the introducer needle was advanced until the target vein was accessed.? The blood was dark red and non-pulsatile.? The guidewire was advanced through the introducer needle.? The correct location of the guidewire within the target vein was confirmed on ultrasound.? The tract to the vein was dilated and a triple lumen central venous catheter was advanced to 17 cm.? The guidewire was removed without difficulty.? Each lumen liam blood and was flushed with sterile saline.? The catheter was secured in place.? A bio-patch and sterile dressing were applied. Post procedure CXR showed that the central line was deep, so it was retracted to ~ 15 cm. Follow-up: A chest radiograph was ordered to confirm appropriate catheter position Date of Procedure: 01/01/25 Pocus Exam Limited Vascular Exam DATE OF EXAM: 01/01/25 TIME OF EXAM: 07:50 PROVIDER THAT PERFORMED THE STUDY: Steven Gant DIFFERENTIAL DIAGNOSES: Septic shock INCIDENTAL FINDINGS: Right internal jugular vein visualized with guidewire in appropriate position
[2025-01-01] MEDS: Lidocaine 2% Multi-Dose 20 ML VIAL (09:46)
--- NOTE | 2025-01-01 10:08 | INITIAL_ITS ---
Date of service: 01/01/25 Time of Service: 10:08 Care Management Initial Assmt Initial Assessment Reason for Hospitalization: sepsis due to pneumonia, right pneumothorax, legionella Functional Status/Living Situation Patient Presentation: Jennifer presented to the ED last night with c/o difficulty breathing. She reported shortness of breath that had started earlier in the day. She was t achycardic, tachypneic and had an increased O2 need. Per report from the facility in which she lives, Jennifer tested positive for Legionella yesterday. Jennifer is quite sick. She has had thoracentesis of both lungs, is on triple antibiotics, nor-epi for BP support and NS running at 200cc/h. Jennifer is being transferred to [facility] in [place], [place], where she will continue her care. Jennifer was sitting on the edge of the bed, in obvious discomfort, when CM met with her today. Although well known to CM, Jennifer did not want to talk today, and CM did not push it. CM did speak with, Rogelio, Jennifer's . He is a bit upset that Jennifer is not being [place] [facility], but going to [facility]. CM explained to Rogelio that this is a good hospital, with everything that Jeninfer needs, including a bed. Town of Residence: [facility] Resides with: Other (lives with her ,Campos, at [facility] for [facility]) Significant Other/Family: Local (, Campos Alonzo, Geronimo and Shiva live in [place]) Natural Supports: family, 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 Has a GT for feedings and med administration. Does take small amounts in by mouth. Advance Directives Advance Directives: Do you have an Advance Directive: N , 08:18 AD On File at [facility]: N 05/01/24, 08:18 Date Asked 01/01/25 Today, 08:24 AD Date Reviewed COLST On File at [facility] COLST Date Scanned Code Status Resuscitation Status Full Code Insurance Coverage/Financial Issues Insurance: Medicaid of [place] - FINANCIAL ASST 100 Care Team Visit Care Team Role Provider Type Darin Giron MD MD [facility] STAFF PHYSICIAN Ana Gillespie Primary Care Provider NURSE PRACTITIONER Steven Gant MD Other Providers [facility] STAFF PHYSICIAN Aiden Redman MD Emergency Provider [facility] STAFF PHYSICIAN Esau Rod MD Admit Provider [facility] STAFF PHYSICIAN Attending Provider Discharge Potential Discharge Needs: Other (transfer to tertiary facility) Anticipated Barriers to Discharge: Bed availability Patient/Family Education Needs: Review discharge instructions, discuss Ask Me Three Transportation: EMS Plan: Jennifer will be transferred to [facility] once a bed is available. She will transfer via EMS. CM will continue to follow. Social Determinants of Health Screening Will the Patient Participate in the Screening?: Unable to obtain Comments: Patient is not stable at this time, while awake and alert, complex questions result in limited comprehension and confused answers. PFSH All Active Problems (Updated 01/01/25 @ 08:55 by Steven Gant MD) Septic shock (Acute) (HFpEF) heart failure with preserved ejection fraction (Acute) COPD (chronic obstructive pulmonary disease) (Chronic) Legionella infection (Acute) Metabolic acidosis, increased anion gap (Acute) H/O percutaneous endoscopic gastrostomy (PEG) (Acute) Acute renal failure (Acute) Sepsis due to pneumonia (Acute) MARILIN (acute kidney injury) (Acute) Pleural effusion on right (Acute) Pneumothorax on right (Acute) Back pain (Acute) MARILIN (acute kidney injury) (Acute) Acute dehydration (Acute) Nausea & vomiting (Acute) S/P percutaneous endoscopic gastrostomy (PEG) tube placement (Acute) Acute exacerbation of chronic obstructive pulmonary disease (Acute) Medical History Advanced care planning/counseling discussion Palliative care encounter PEG tube malfunction Dilatation of esophagus COPD (chronic obstructive pulmonary disease) with acute bronchitis Insulin dependent type 2 diabetes mellitus HFrEF (heart failure with reduced ejection fraction) Abnormal chest xray H/O: pneumonia Drug-induced parkinsonism Neuroleptic induced parkinsonism Tubular adenoma (~06/10/21) Hyperplastic colon polyp (~06/10/21) Erosive esophagitis Esophageal ulcer with bleeding Farrell's esophagus Chronic diarrhea Black tarry stools Pleural effusion Leukocytosis Ventral hernia Cholelithiasis Atrial flutter Diabetes Bipolar 1 disorder Depression Gastrostomy tube obstruction Myocardial injury COPD with acute exacerbation NSTEMI (non-ST elevated myocardial infarction) Per pt. states she did not have a heart attack Bronchiolitis Acute on chronic respiratory failure with hypoxia and hypercapnia Hypotension Vitamin D deficiency Esophageal stricture Chronic systolic (congestive) heart failure Aspiration pneumonia Stress-induced cardiomyopathy acute onset managed at [facility] 08/30 pressors, EF 25%, has since recovered RH Acute cardiogenic pulmonary edema Acute metabolic encephalopathy Bilateral pneumonia Hypokalemia Closed fracture of neck of left femur s/p Percutaneous Screw Fixation 08/09/22 Constipation Diabetes mellitus type 2 in obese Chronic iron deficiency anemia ETOH abuse Chronic pancreatitis due to acute alcohol intoxication Alcohol abuse Per pt. states she has never had an issues with any subtances History of pilonidal cyst Anxiety Surgical History History of total right hip replacement (03/01/24) As treatment for R femoral neck fracture PEG (percutaneous endoscopic gastrostomy) status Status post hip surgery History of total left hip arthroplasty (01/19/23) S/P laparoscopic procedure cyst removed from stomach per patient S/P surgical removal of pilonidal cyst History of esophagogastroduodenoscopy (EGD) (~06/10/21) History of colonoscopy with polypectomy (~06/10/21) History of hysterectomy History of tonsillectomy History of section Family History Father Hypertension Diabetes Heart disease Social History Smoking/Tobacco Use Status: Former Tobacco Use Quit Date: 02/07/21 Smoking risk assessment performed?: Yes Alcohol Intake: never Drug use: Never Substance use type: does not use Household members: spouse Housing: penitentiary Number of Children: 2 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
[2025-01-01] MEDS: Normal Saline Flush 10 ML SYR IVP (10:37)
[2025-01-01] MEDS: Heparin 5,000 UNITS/ML VIAL 5000 UNITS SC (10:37)
[2025-01-01] MEDS: PIPERACILLIN/TAZO 2.25 GM in Normal Saline 50 ML IVPB (10:38)
[2025-01-01] MEDS: MORPHine 2 MG/ML SYR IVP (11:18)
[2025-01-01 12:33] LABS: Anion Gap 17.0 mmol/L (3-11); BUN 52 mg/dL (7-18); CO2 19.0 mmol/L (21.0-32.0); Calcium 8.6 mg/dL (8.5-10.1); Chloride 101 mmol/L (98-107); Estimated GFR 25.83 (mL/min/1.73m2); Glucose 151 mg/dL (74-106); Potassium 3.7 mmol/L (3.5-5.1); Sodium 137 mmol/L (136-145)
--- NOTE | 2025-01-01 12:40 | PAPNONF_PTH ---
PATIENT: Jennifer Ivring LOC: ICU U#:[id number] AGE/SX: 64/F ROOM: ICU.219 RE01/01/[address]: Esau Rod : 1960 BED: A DIS: 01/01/2025 SPEC #: [id number] RECD: 01/01/25 13:07 STATUS: CATERINA REQ #: [id number] JAI: 01/01/25 12:[address]: Esau Rod DEPT: [facility] Cytology RECD BY: Estephania Felix ENTERED: 01/01/25 13:08 SP TYPE: ALICIA GARCIA DR: Ana Dominguez Tissues: 1 - BODY FLUID CYTO(NOT S/U/N/EM)[facility] Procedures: BODY FLUID CYTO(NOT SPU/UR/NIP/ENDOM)[facility] Comments: [id number] (SENT FRESH) (REFRIGERATED)
[2025-01-01 13:17] LABS: Vancomycin, Random 21.4 ug/mL
--- NOTE | 2025-01-01 13:29 | W.PM.DS.N ---
Date of service: 01/01/25 Time of Service: 13:29 DS: Diagnosis Discharge Diagnosis (1) Septic shock: Status: Acute (2) Pneumothorax on right: Status: Acute (3) Pleural effusion on right: Status: Acute (4) MARILIN (acute kidney injury): Status: Acute (5) Sepsis due to pneumonia: Status: Acute Discharge Plan Disposition Patient Disposition: Transfer-Acute Inpatient Care Specific Acute Inpt Facility: Other Condition: Fair Discharge Details Reason For Visit: Hemopneumothorax Admit Date/Time: 01/01/25 01:20 Admit Provider: Esau Rod Attending Provider: Esau Rod Primary Care Provider: Ana Gillespie Hospital Course Hospital Course: Patient initially presented with shortness of breath from rehab facility was found to have hydropneumothorax on the right likely from aspiration pneumonia resulting in septic shock. She is on Vanco, Zosyn and azithromycin. A pigtail chest tube was placed on the right side had significant elevated white blood cells with remainder of pleural fluid studies pending. However, even after draining of fluid there is still residual pneumothorax in the right lower anterior lobe as well as in the apex with concern for pleural thickening and question of self reexpansion without cardiothoracic surgery involvement of decortication. Additionally, patient had thoracentesis of fluid on the left which was also highly suspicious for empyema. Patient is also currently on 9 micrograms of norepinephrine to maintain mean arterial pressure greater than 65, and she also has acute hypoxic respiratory failure on 4 L nasal cannula to maintain oxygen saturation between 8892%. Case was discussed with pulm/crit care, cardiothoracic surgery and hospitalist at [facility] all of which he agreed patient is appropriate for transfer to their facility. Home Meds and New Rx's Prescriptions: No Action bupropion HCl 100 mg tablet 300 mg PO DAILY Patient Comments: via g-tube, per pcp ov notes 12/09/22 RH duloxetine [Cymbalta] 20 mg capsule,delayed release(DR/EC) 20 mg PO HS Patient Comments: TAKE 1 CAPSULE PER DAY VIA G-TUBE IN THE EVENING sacubitril-valsartan [Entresto] 24-26 mg tablet 1 tab feeding tube DAILY Patient Comments: via g-tube Jardiance 10 mg tablet 10 mg feeding tube DAILY atorvastatin 80 mg tablet 80 mg feeding tube QPM valproic acid (as sodium salt) 250 mg/5 mL solution 300 mg feeding tube TID Rx Instructions: 6mls TID metoprolol succinate 50 mg tablet extended release 24 hr 25 mg PO BID Rx Instructions: Given via G-tube aspirin 81 mg tablet,chewable 81 mg feeding tube DAILY Qty: 30 0RF bisacodyl 10 mg suppository 10 mg MO DAILY PRN quetiapine 100 mg tablet 300 mg feeding tube DAILY folic acid 1 mg Tablet 1 mg feeding tube DAILY albuterol sulfate 90 mcg/actuation HFA aerosol inhaler 2 puff inhalation Q4H PRN acetaminophen 500 mg/15 mL liquid 1,000 mg feeding tube Q8H PRN pantoprazole [address] for susp in packet 40 mg G-tube DAILY Patient Comments: Take 1 packet via g-tube twice a day Administer in 10 mL of apple juice via g-tub, then follow with another 10 mL. nystatin 100,000 unit/gram cream 1 applic TOPICAL TID PRN Patient Comments: APPLY A SMALL AMOUNT TO AFFECTED AREA(S) ON BUTTOCKS THREE TIMES A DAY NEEDED melatonin 3 mg tablet 9 mg feeding tube HS Patient Comments: TAKE THREE TABLETS VIA G-TUBE EVERY NIGHT DIRECTED insulin glargine [Lantus Solostar U-100 Insulin] 100 unit/mL (3 mL) insulin pen 10 unit SUBCUT QPM Patient Comments: INJECT 10 UNITS UNDER THE SKIN NIGHTLY DIRECTED ondansetron HCl 4 mg tablet 4 mg feeding tube Q6H PRN Patient Comments: TAKE ONE TABLET VIA G-TUBE EVERY 8 HOURS NEEDED (DME) Space Chamber Spacer See Rx Instructions .Route Qty: 1 0RF Rx Instructions: As directed cyclobenzaprine 5 mg tablet 5 mg PO TID PRN (Reason: muscle spasm) Qty: 30 0RF Discharge Instructions Activity:: Activity as Tolerated Equipment/Supplies:: No Equipment Needed Diet:: As Tolerated Discharge Orders Discharge Orders: Discharge Order (Routine); Ordered 01/01/25 Ordered By: Darin Giron DS: Summary Time Spent with Patient providing and/or coordinating discharge services: Greater than 30 minutes Status at Discharge Functional status at discharge: bed bound Overall status at discharge: patient is not back to baseline Mental Status: mental status grossly normal Speech and Movement: speech and movement normal Mood: congruent mood Affect: normal affect Quality:SDOH Health Related Social Needs: Health related social needs material hardship lonely/isolated Health related social needs details Patient currently lives at [facility] with her . Exam Narrative Exam Narrative: Fatigued, acutely ill-appearing older female laying in bed in no acute distress, 4 L nasal cannula in place, heart regular rate rhythm, lungs with diminished breath sounds in the right APC and right anterior lower lobe, coarse breath sounds heard throughout remainder of right and entirety of left lung field, pigtail chest tube in place on the right without surrounding erythema or drainage, abdomen soft, nontender, nondistended Psych Mental Status: mental status grossly normal Speech and Movement: speech and movement normal Mood: congruent mood Affect: normal affect DS: Data Vitals/I&O Vitals and I&O: Vital Signs Temperature 97.3 F L 01/01/25 02:45 Temperature Source Temporal Artery Scan 01/01/25 02:45 Pulse 86 01/01/25 10:45 Pulse 87 01/01/25 10:45 Respiratory Rate 33 H 01/01/25 10:45 Respiratory Effort Short of Breath, Incrsd Work of Breathing 01/01/25 03:09 Respiratory Depth Normal 01/01/25 03:09 Respiratory Pattern Tachypnea 01/01/25 02:45 Blood Pressure 113/50 L 01/01/25 10:45 Blood Pressure Mean 65 01/01/25 10:45 Blood Pressure Position Sitting 12/31/24 22:51 Pulse Oximetry 91 L 01/01/25 10:45 Oxygen Delivery Method Nasal Cannula 01/01/25 07:24 Oxygen Flow Rate 4 01/01/25 07:24 Pain Level 9 01/01/25 04:04 Intake & Output 12/31/24 01/01/25 01/01/25 17:59 05:59 17:59 Intake Total 1300 / 1300 1590.500 / 1590.500 Output Total 75 / 75 387 / 387 Balance 1225 / 1225 1203.500 / 1203.500 Weight 168 lb 6.931 oz 167 lb 15.876 oz Intake: IV 1300 / 1300 1590.500 / 1590.500 Output: Chest Tube Drainage 87 / 87 Urine 75 / 75 300 / 300 Other: Urine Color Light Avani Yellow Urine Appearance Cloudy Clear Comment Irena and skin care performed around vulval site. Presence of skin fungus noted prior to insertion, cleaned to best of ability. Data Completed and Pending Labs on day of discharge: Labs from last 24 hours 01/01/25 01/01/25 01/01/25 Unknown 20:00 16:00 WBC RBC Hgb Hct MCV MCH MCHC RDW Plt Count MPV Immature Gran % Neutrophils % Band Neutrophils % Lymphocytes % Atypical Lymphs % Monocytes % Eosinophils % Basophils % Myelocytes % Nucleated RBC % Absolute Neutrophils Absolute Lymphocytes Absolute Monocytes Absolute Eosinophils Absolute Basophils RBC Morphology PT INR VBG pH VBG pCO2 VBG pO2 VBG HCO3 VBG Total CO2 VBG O2 Saturation VBG Base Excess VBG Lactate Sodium Pending Pending Potassium Pending Pending Chloride Pending Pending Carbon Dioxide Pending Pending Anion Gap Pending Pending BUN Pending Pending Creatinine Pending Pending Est GFR (CKD-EPI 2020) Pending Pending Glucose Pending Pending Calcium Pending Pending Magnesium Total Bilirubin AST ALT Alkaline Phosphatase Troponin I Total Protein Albumin Fluid Type Fluid Source Fluid Color Fluid Clarity Fluid WBC Fld Polynuclear WBCs % Fluid Mononuclear Cell Fluid Other Cells Fluid Glucose Cancelled Fluid Total Protein Fluid LDH Random Vancomycin Legionella Source L.pneumophila Antibody Urine Legionella Ag Legionella DNA (PCR) AFB Smear AFB Culture Final Res Path Cons Comment Miscellaneous Test 01/01/25 01/01/25 01/01/25 12:40 12:10 08:14 WBC RBC Hgb Hct MCV MCH MCHC RDW Plt Count MPV Immature Gran % Neutrophils % Band Neutrophils % Lymphocytes % Atypical Lymphs % Monocytes % Eosinophils % Basophils % Myelocytes % Nucleated RBC % Absolute Neutrophils Absolute Lymphocytes Absolute Monocytes Absolute Eosinophils Absolute Basophils RBC Morphology PT INR VBG pH 7.28 L VBG pCO2 39 L VBG pO2 47 VBG HCO3 19 L VBG Total CO2 17 L VBG O2 Saturation 76 VBG Base Excess -8 L VBG Lactate 1.8 Sodium 137 136 Potassium 3.7 3.9 Chloride 101 102 Carbon Dioxide 19.0 L 20.5 L Anion Gap 17.0 H 13.5 H BUN 52 H 53 H Creatinine 2.1 H 2.1 H Est GFR (CKD-EPI 2020) 25.83 25.83 Glucose 151 H 142 H Calcium 8.6 8.2 L Magnesium Total Bilirubin 0.5 AST 20 ALT 14 Alkaline Phosphatase 65 Troponin I Total Protein 5.6 L Albumin 1.9 L Fluid Type Pending Fluid Source Pending Fluid Color Pending Fluid Clarity Pending Fluid WBC Pending Fld Polynuclear WBCs % Pending Fluid Mononuclear Cell Pending Fluid Other Cells Fluid Glucose Pending Fluid Total Protein Pending Fluid LDH Pending Random Vancomycin 21.4 Legionella Source L.pneumophila Antibody Urine Legionella Ag Legionella DNA (PCR) AFB Smear Pending AFB Culture Final Res Pending Path Cons Comment Pending Miscellaneous Test 01/01/25 01/01/25 01/01/25 08:00 05:35 04:45 WBC RBC Hgb Hct MCV MCH MCHC RDW Plt Count MPV Immature Gran % Neutrophils % Band Neutrophils % Lymphocytes % Atypical Lymphs % Monocytes % Eosinophils % Basophils % Myelocytes % Nucleated RBC % Absolute Neutrophils Absolute Lymphocytes Absolute Monocytes Absolute Eosinophils Absolute Basophils RBC Morphology PT Cancelled INR Cancelled VBG pH VBG pCO2 VBG pO2 VBG HCO3 VBG Total CO2 VBG O2 Saturation VBG Base Excess VBG Lactate Sodium Cancelled Potassium Cancelled Chloride Cancelled Carbon Dioxide Cancelled Anion Gap Cancelled BUN Cancelled Creatinine Cancelled Est GFR (CKD-EPI 2020) Cancelled Glucose Cancelled Calcium Cancelled Magnesium Total Bilirubin AST ALT Alkaline Phosphatase Troponin I Total Protein Albumin Fluid Type Fluid Source Fluid Color Fluid Clarity Fluid WBC Fld Polynuclear WBCs % Fluid Mononuclear Cell Fluid Other Cells Fluid Glucose Fluid Total Protein Fluid LDH Random Vancomycin Legionella Source L.pneumophila Antibody Urine Legionella Ag Pending Legionella DNA (PCR) AFB Smear AFB Culture Final Res Path Cons Comment Miscellaneous Test 01/01/25 01/01/25 01/01/25 04:15 01:20 00:10 WBC 8.32 7.14 RBC 5.32 H 6.53 H Hgb 15.0 D 18.2 H Hct 46.0 56.1 H MCV 87 86 MCH 28.2 27.9 MCHC 32.6 32.4 RDW 15.4 H 16.5 H Plt Count 158 303 MPV 11.3 H 11.4 H Immature Gran % See Differential 0.0 Neutrophils % 63.0 78.0 Band Neutrophils % 5 Lymphocytes % 10.0 13.0 Atypical Lymphs % 3 1 Monocytes % 18.0 8.0 Eosinophils % 0.0 0.0 Basophils % 0.0 0.0 Myelocytes % 1 Nucleated RBC % 0.0 0.0 Absolute Neutrophils 5.66 5.57 Absolute Lymphocytes 1.08 L 1.00 L Absolute Monocytes 1.50 H 0.57 Absolute Eosinophils 0.00 0.00 Absolute Basophils 0.00 0.00 RBC Morphology Normal Normal PT INR VBG pH 7.24 L VBG pCO2 46 VBG pO2 29 VBG HCO3 20 L VBG Total CO2 17 L VBG O2 Saturation 44 VBG Base Excess -8 L VBG Lactate 4.7 H* Sodium 129 L D Potassium 4.1 Chloride 90 L Carbon Dioxide 20.2 L Anion Gap 18.8 H BUN 54 H Creatinine 3.0 H D Est GFR (CKD-EPI 2020) 16.83 Glucose 269 H Calcium 9.9 Magnesium 1.7 L Total Bilirubin 0.8 AST 18 ALT 18 Alkaline Phosphatase 103 Troponin I 19 20 Total Protein 8.2 Albumin 3.0 L Fluid Type Fluid Source Fluid Color Fluid Clarity Fluid WBC Fld Polynuclear WBCs % Fluid Mononuclear Cell Fluid Other Cells Fluid Glucose Fluid Total Protein Fluid LDH Random Vancomycin Legionella Source L.pneumophila Antibody Pending Urine Legionella Ag Legionella DNA (PCR) AFB Smear AFB Culture Final Res Path Cons Comment Pending Miscellaneous Test 01/01/25 12/31/24 12/31/24 00:02 23:15 23:15 WBC RBC Hgb Hct MCV MCH MCHC RDW Plt Count MPV Immature Gran % Neutrophils % Band Neutrophils % Lymphocytes % Atypical Lymphs % Monocytes % Eosinophils % Basophils % Myelocytes % Nucleated RBC % Absolute Neutrophils Absolute Lymphocytes Absolute Monocytes Absolute Eosinophils Absolute Basophils RBC Morphology PT INR VBG pH VBG pCO2 VBG pO2 VBG HCO3 VBG Total CO2 VBG O2 Saturation VBG Base Excess VBG Lactate Sodium Potassium Chloride Carbon Dioxide Anion Gap BUN Creatinine Est GFR (CKD-EPI 2020) Glucose Calcium Magnesium Total Bilirubin AST ALT Alkaline Phosphatase Troponin I Total Protein Albumin Fluid Type Pending Pending Fluid Source Thoracic Fluid Color Yellow Fluid Clarity Cloudy Fluid WBC 58533 Fld Polynuclear WBCs % 92 Fluid Mononuclear Cell 8 Fluid Other Cells Fluid Glucose Fluid Total Protein Pending Fluid LDH Pending Random Vancomycin Legionella Source Pending L.pneumophila Antibody Urine Legionella Ag Legionella DNA (PCR) Pending AFB Smear AFB Culture Final Res Path Cons Comment Pending Miscellaneous Test 12/31/24 13:15 WBC RBC Hgb Hct MCV MCH MCHC RDW Plt Count MPV Immature Gran % Neutrophils % Band Neutrophils % Lymphocytes % Atypical Lymphs % Monocytes % Eosinophils % Basophils % Myelocytes % Nucleated RBC % Absolute Neutrophils Absolute Lymphocytes Absolute Monocytes Absolute Eosinophils Absolute Basophils RBC Morphology PT INR VBG pH VBG pCO2 VBG pO2 VBG HCO3 VBG Total CO2 VBG O2 Saturation VBG Base Excess VBG Lactate Sodium Potassium Chloride Carbon Dioxide Anion Gap BUN Creatinine Est GFR (CKD-EPI 2020) Glucose Calcium Magnesium Total Bilirubin AST ALT Alkaline Phosphatase Troponin I Total Protein Albumin Fluid Type Fluid Source Fluid Color Fluid Clarity Fluid WBC Fld Polynuclear WBCs % Fluid Mononuclear Cell Fluid Other Cells Fluid Glucose Fluid Total Protein Fluid LDH Random Vancomycin Legionella Source L.pneumophila Antibody Urine Legionella Ag Legionella DNA (PCR) AFB Smear AFB Culture Final Res Path Cons Comment Miscellaneous Test Pending 01/01/25 12:40 Thoracentesis Body Fluid Culture - Pending 01/01/25 12:40 Thoracentesis Gram Stain - Pending 01/01/25 12:40 Chest - Left Lower Anaerobic Culture - Pending 12/31/24 23:15 Thoracentesis Body Fluid Culture - Pending 01/01/25 01:15 Blood Blood Culture - Pending 01/01/25 00:45 Blood Blood Culture - Pending Preliminary micro results at discharge 01/01/25 12:40 Thoracentesis Body Fluid Culture - Pending 01/01/25 12:40 Thoracentesis Gram Stain - Pending 01/01/25 12:40 Chest - Left Lower Anaerobic Culture - Pending 12/31/24 23:15 Thoracentesis Body Fluid Culture - Pending 01/01/25 01:15 Blood Blood Culture - Pending 01/01/25 00:45 Blood Blood Culture - Pending [facility] All Active Problems (Updated 01/01/25 @ 08:55 by Steven Gant MD) Septic shock (Acute) (HFpEF) heart failure with preserved ejection fraction (Acute) COPD (chronic obstructive pulmonary disease) (Chronic) Legionella infection (Acute) Metabolic acidosis, increased anion gap (Acute) H/O percutaneous endoscopic gastrostomy (PEG) (Acute) Acute renal failure (Acute) Sepsis due to pneumonia (Acute) MARILIN (acute kidney injury) (Acute) Pleural effusion on right (Acute) Pneumothorax on right (Acute) Back pain (Acute) MARILIN (acute kidney injury) (Acute) Acute dehydration (Acute) Nausea & vomiting (Acute) S/P percutaneous endoscopic gastrostomy (PEG) tube placement (Acute) Acute exacerbation of chronic obstructive pulmonary disease (Acute) Medical History Advanced care planning/counseling discussion Palliative care encounter PEG tube malfunction Dilatation of esophagus COPD (chronic obstructive pulmonary disease) with acute bronchitis Insulin dependent type 2 diabetes mellitus HFrEF (heart failure with reduced ejection fraction) Abnormal chest xray H/O: pneumonia Drug-induced parkinsonism Neuroleptic induced parkinsonism Tubular adenoma (~06/10/21) Hyperplastic colon polyp (~06/10/21) Erosive esophagitis Esophageal ulcer with bleeding Farrell's esophagus Chronic diarrhea Black tarry stools Pleural effusion Leukocytosis Ventral hernia Cholelithiasis Atrial flutter Diabetes Bipolar 1 disorder Depression Gastrostomy tube obstruction Myocardial injury COPD with acute exacerbation NSTEMI (non-ST elevated myocardial infarction) Per pt. states she did not have a heart attack Bronchiolitis Acute on chronic respiratory failure with hypoxia and hypercapnia Hypotension Vitamin D deficiency Esophageal stricture Chronic systolic (congestive) heart failure Aspiration pneumonia Stress-induced cardiomyopathy acute onset managed at [facility] 08/30 pressors, EF 25%, has since recovered RH Acute cardiogenic pulmonary edema Acute metabolic encephalopathy Bilateral pneumonia Hypokalemia Closed fracture of neck of left femur s/p Percutaneous Screw Fixation 08/09/22 Constipation Diabetes mellitus type 2 in obese Chronic iron deficiency anemia ETOH abuse Chronic pancreatitis due to acute alcohol intoxication Alcohol abuse Per pt. states she has never had an issues with any subtances History of pilonidal cyst Anxiety Surgical History History of total right hip replacement (03/01/24) As treatment for R femoral neck fracture PEG (percutaneous endoscopic gastrostomy) status Status post hip surgery History of total left hip arthroplasty (01/19/23) S/P laparoscopic procedure cyst removed from stomach per patient S/P surgical removal of pilonidal cyst History of esophagogastroduodenoscopy (EGD) (~06/10/21) History of colonoscopy with polypectomy (~06/10/21) History of hysterectomy History of tonsillectomy History of section Family History Father Hypertension Diabetes Heart disease Social History Smoking/Tobacco Use Status: Former Tobacco Use Quit Date: 02/07/21 Smoking risk assessment performed?: Yes Alcohol Intake: never Drug use: Never Substance use type: does not use Household members: spouse Housing: skilled nursing Number of Children: 2 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 Additional Social history: At [facility] with Time Spent with Patient Time Spent with Patient: <45 minutes Time was spent: preparing to see the patient(eg.review tests), obtaining and/or reviewing separately otained hiistory, ordering medications,tests, procedures, referring, communicating with other health career development specialist, indepentently interpreting results, counseling the patient and care coordination
[2025-01-01 13:52] LABS: Polynuclear Cells 90 %
--- NOTE | 2025-01-01 14:14 | NUR.NOTE ---
Nursing Note: 12:30; Pt's notified via telephone by this RN of pending transfer to [facility]. originally expressed wishes for the pt to go to [facility] or [facility] instead and was unhappy that pt was going to a facility that he, had never even heard of. Pt's was further educated on why the pt was being transferred, and was explained to that both [facility] and [facility] did not have any beds. Explained further that it could be days before the facilities would have beds, and that is was in the best interest of the pt not to delay care. Pt's expressed understanding and the call was ended. 13:30; pt's called again to express his concerns. Dr. Giron was on the unit, and spoke to the concerning the details of the transfer, and the reason for transfer to this facility. 14:04; Pt's called and was informed that the pt left with [facility] for [facility] [id number].
--- NOTE | 2025-01-01 15:28 | W.PM.OP ---
Operative Note Operative Note PRE-OP DIAGNOSIS: Left pleural effusion, pneumonia POST-OP DIAGNOSIS: same PROCEDURE: Left thoracentesis SURGEON: Steven Gant ANESTHESIA TYPE: Local By Surgeon Indications: Diagnosis and removal of left pleural effusion Procedure Description: The procedure risks, benefits, and alternatives were discussed with [], who understood and informed consent was obtained. Laboratory studies and radiographs were reviewed. A time-out was performed.? Bedside ultrasound was used to identify an appropriate site for thoracentesis.? The site was marked on the left posterolateral chest wall.? Sterile technique was used throughout the procedure.? The site was cleaned and draped in a sterile fashion.? Using a 10 cc syringe and 22 Ga needle, the skin and tract to the pleural cavity were anesthetized with 10 mL of 1% lidocaine.? Pleural fluid was obtained in the 10 cc syringe without difficulty. ?A small 2-3 mm skin incision was made at the marked site.? An 8 Fr catheter over a needle was advanced until positive fluid return.? The catheter was then advanced into the pleural space and the needle was removed.? Pleural fluid was drained without difficulty.? Post-procedure bedside ultrasound demonstrated good lung sliding.? There was a small amount of residual fluid remaining. 250 mL of dark yellow pleural fluid were removed. Samples were sent for chemistries, cell count, bacterial/fungal/afb cultures, and cytopathology. Follow-up: A chest radiograph was ordered and is pending Follow-up on pleural fluid analysis Date of Procedure: 01/01/25
[2025-01-01 19:42] LABS: Legionella Ag Detection Urine Negative (Negative)
[2025-01-01 21:46] LABS: Glucose, Fluid 118 mg/dL (See Note)
[2025-01-02 16:06] LABS: Lactate Dehydrogenase (LD), BF 612 U/L
[2025-01-02 17:15] LABS: Protein,Total, BF 3.1 g/dL
[2025-01-03 10:21] LABS: Protein,Total, BF 1.7 g/dL
[2025-01-03 11:36] LABS: Lactate Dehydrogenase (LD), BF 2405 U/L
[2025-01-04 15:49] LABS: Specimen Source Pleural Fluid
== END 2025-01-01 13:45 | disposition short-term general hospital (02) | DRG 871 ==
LOC: ER 01-01 01:55 → ICU 01-01 02:41
PROVIDERS: Internal Medicine Pulmonary Disease; Admitting Provider Family Medicine; Emergency Provider Emergency Medicine; PCP Nurse Practitioner Family; Responsible Provider Family Medicine; Visit Provider Family Medicine
DX: A41.9 Sepsis, unspecified organism (principal); A48.1 Legionnaires' disease; J86.9 Pyothorax without fistula; R65.21 Severe sepsis with septic shock; J96.01 Acute respiratory failure with hypoxia; J69.0 Pneumonitis due to inhalation of food and vomit; N17.9 Acute kidney failure, unspecified; J91.8 Pleural effusion in other conditions classified elsewhere; J44.0 Chronic obstructive pulmonary disease with (acute) lower respiratory infection; I50.30 Unspecified diastolic (congestive) heart failure; E87.21 Acute metabolic acidosis; G21.11 Neuroleptic induced parkinsonism; I48.92 Unspecified atrial flutter; K86.0 Alcohol-induced chronic pancreatitis; J94.8 Other specified pleural conditions; N18.9 Chronic kidney disease, unspecified; E11.22 Type 2 diabetes mellitus with diabetic chronic kidney disease; Z93.1 Gastrostomy status; Z79.84 Long term (current) use of oral hypoglycemic drugs; Z79.4 Long term (current) use of insulin; M54.6 Pain in thoracic spine; M54.50 Low back pain, unspecified; R11.2 Nausea with vomiting, unspecified; E87.6 Hypokalemia; K22.70 Barrett's esophagus without dysplasia; F31.9 Bipolar disorder, unspecified; K22.2 Esophageal obstruction; D50.9 Iron deficiency anemia, unspecified; F10.10 Alcohol abuse, uncomplicated; F41.9 Anxiety disorder, unspecified
CPT/HCPCS: 36556; 32554; 00123; 32556; 36415; 71045; 71250; 80048; 80053; 82805; 86713; 87040; 87077; 87116; 87118; 87186; 87206; 87449; 87801; 93005; 96365; 96366; 96367; 99291; 80202; 81373; 83605; 83615; 83735; 84157; 84484; 85025; 85610; 87070; 87075; 87205; 88104; 89051; 93010; 94760; 99236; J0456; J1644; J1815; J2003; J2270; J2543; J3010; J3373; J3475